=== PATIENT | male | born 1965 | race Caucasian/White ===

== ENCOUNTER 2022-11-04 13:06 | Outpatient (OUT) | payer OTHER, SELFPAY ==
--- NOTE | 2022-11-04 13:28 | CT_ITS ---
The [address] [address] Patient Name: MYRA FELIPE MRN: [id number] date: 1965 Sex: M Assigned Patient Location: CT Current Patient Location: CT Accession/Order Number: [id number] Exam Date: 11/04/2022 13:30 Report Date: 11/04/2022 16:06 At the request of: DUARTE HENRY Procedure: CT lung screening low-dose EXAMINATION: CT lung screening low-dose HISTORY: History Of Tobacco Abuse Z87.891 COMPARISON: CT chest 10/12/2021, 05/18/2020 TECHNIQUE: Axial, Coronal, and Sagittal images were created without the administration of IV contrast material. Dose reduction techniques were achieved by using automated exposure control and/or adjustment of mA and/or kV according to patient size and/or use of iterative reconstruction technique. FINDINGS: LUNGS: Multiple calcified and noncalcified nodules bilaterally; largest on right is within medial right middle lobe, 8 mm; largest on the left is within posterior lateral left lower lobe, likely within the superior segment, 15 x 6 mm. Findings have remained stable. PLEURA: No mass, effusion, or pneumothorax. VASCULATURE: No abnormality. CHAPIS: Calcified lymph nodes bilaterally. MEDIASTINUM: Calcified lymph nodes. CARDIAC: Atherosclerotic coronary artery disease. AORTA: No aneurysm or dissection. CHEST WALL: No mass or axillary adenopathy BONES: No bone lesion or fracture. LIMITED ABDOMEN: No suspicious findings. Limited images of the upper abdomen. OTHER: Negative. IMPRESSION: 1. Lung-RADS 2- Benign Appearance or Behavior. Nodules with a very low likelihood of becoming a clinically active cancer due to size or lack of growth. Follow-up CT Chest in 1 year. Electronically authenticated by: LYSSA PERDOMO Date: 11/04/2022 16:06
== END 2022-11-04 13:07 ==
LOC: CT 13:09
PROVIDERS: Visit Provider Internal Medicine
DX: Z87.891 Personal history of nicotine dependence (principal); R91.8 Other nonspecific abnormal finding of lung field
CPT/HCPCS: 71271

== ENCOUNTER 2023-03-03 16:10 | Inpatient (IN) | payer OTHER, SELFPAY ==
[2023-03-03] VITALS (13 sets, daily range): BP systolic 117–144; BP diastolic 73–84; PULSE 110–117; RESP 7–32; TEMP 36.8–37.3; O2SAT 62–99; BMI 29.9; BMI 28.4
--- NOTE | 2023-03-03 16:30 | PC.NURSE ---
pt assisted out of car by wheelchair complaining of left sided weakness and pain. stated he was seen at [facility] yesterday but couldn't recall for what surgery he had done. 20g placed in L ac. BS 272
--- NOTE | 2023-03-03 16:31 | CT_ITS ---
The [address] [address] Patient Name: MYRA FELIPE MRN: [id number] date: 1965 Sex: M Assigned Patient Location: ER Current Patient Location: ER Accession/Order Number: [id number] Exam Date: 03/03/2023 16:43 Report Date: 03/03/2023 17:24 At the request of: MAGDA MONROE Procedure: CT stroke head/brain wo con EXAM: CT stroke head/brain w/o con HISTORY: Multiple falls. TECHNIQUE: Axial CT scans through the head were obtained without IV contrast administration. Dose reduction techniques were achieved by using: automated exposure control and/or adjustment of mA and /or kV according to patient size and/or use of iterative reconstruction technique. COMPARISON: 01/12/2018. FINDINGS: Mild periventricular low attenuation in the cerebral hemispheres without associated mass effect. To the limit of CT, the posterior fossa appears unremarkable. No intracranial hemorrhage is present. No depressed skull fracture is present. The ventricular system and cortical sulci are prominent. No area of abnormal mass effect is shown. The visualized orbits show no gross mass. The visualized paranasal sinuses show no air-fluid levels. Mastoid air cells are clear. CT/CT stroke head/brain wo con IMPRESSION: 1. No depressed skull fracture or intracranial hemorrhage. 2. Mild old microvascular ischemic changes. Age-related cerebral volume loss. Electronically authenticated by: GREG ASHER Date: 03/03/2023 17:24
--- NOTE | 2023-03-03 16:31 | ECG_ITS ---
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
--- NOTE | 2023-03-03 16:31 | XR_ITS ---
[address] [address] Patient Name: MYRA FELIPE MRN: [id number] date: 1965 Sex: M Assigned Patient Location: ER Current Patient Location: ER Accession/Order Number: [id number] Exam Date: 03/03/2023 16:43 Report Date: 03/03/2023 17:31 At the request of: MAGDA MONROE Procedure: XR chest 1V Exam: Radiographs: XR elbow LT 2V, XR chest 1V Reason for exam: fall, head injury Comparison: Chest CT dated 10/12/2021 XR/XR chest 1V IMPRESSION: Unremarkable chest x-ray. Small olecranon spur. Minimal left elbow degenerative change. Left elbow radiographs are otherwise unremarkable. EXAM: CT scan of the cervical spine without contrast. Dose reduction technique used: Automated exposure control and/or adjustment of the mA and/or kV according to patient size and/or use of iterative reconstruction technique. REASON FOR EXAM: fall, head injury COMPARISON: None FINDINGS: No fractures, dislocations or acute malalignment of the cervical spine. Cervical spine degenerative changes with multilevel bilateral mild and moderate neural foraminal stenoses. 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 4 mm solid left apical pulmonary nodule. Remainder unremarkable. IMPRESSION: No acute cervical spine abnormalities. Electronically authenticated by: MAX HAMILTON Date: 03/03/2023 17:31
[2023-03-03 16:40] LABS: Hematocrit 36.2 % (42.0-54.0); Hemoglobin 11.3 g/dL (14.0-18.0); Mean Corpuscular HGB Conc 31.2 g/dL (29.9-35.2); Mean Corpuscular Hemoglobin 24.6 pg (25.9-34.0); Mean Corpuscular Volume 78.7 fL (80.0-94.0); Mean Platelet Volume 11.4 fL (9.5-13.5); Platelet Count 203 10^3/uL (150-450); Red Cell Distribution Width 17.6 % (11.0-15.0); White Blood Count 21.1 10^3/uL (4.0-11.0)
[2023-03-03] MEDS: 0.9 % SODIUM CHLORIDE 1,000 ML 999 ML IV (16:42)
--- NOTE | 2023-03-03 16:42 | ED_ITS ---
HPI - Neuro Symptoms/Deficit General Chief Complaint: Neuro Symptoms/Deficit Stated Complaint: CVA SYMPTOMS/STROKE Time Seen by Provider: 03/03/23 16:19 Mode of arrival: walk-in Limitations: no limitations History of Present Illness HPI Narrative: Patient brought in by family for evaluation stating that the patient's speech is off and that he cannot move his left arm. The gave the history although the patient offered additional information. The told me the patient has dementia and sometimes gets confused and forgets things. She told me that the patient fell 2 days ago at home and hit the back of his head. He apparently did not lose consciousness. The patient stated that he only had pain at the back of the head and did not have any injuries other than the right elbow. the told me that when she left for work yes terday morning, the patient was able to ambulate normally. When she returned yesterday afternoon around 5 PM she said the patient was sitting in a chair in the living room and appeared drowsy. She said she was able to talk with him and interactive them but his answers are short and his speech at that time seemed slightly slurred, she told me. The patient refused to get up out of the chair. She said that she had to bring him a bucket so that he could urinate while in the chair because he did not feel that he could stand up and walk. Then she spent the night on the couch to make sure that he was okay . she told me that when she left for work this morning the patient was still sleeping in the chair. She returned this afternoon he had not moved and was still unable to get up on his own and therefore she called some nursing friends who came to the house and assist getting him up and walking to the car. He was able to use a cane for support, using his right hand but refuses to move his left hand. She said that his speech remained slightly slurred. In our emergency department, the patient tells me that is painful to try and move the left leg but cannot localize area of pain. He is able to move it as well as the right leg. He is also able to move the left upper extremity but it is not with anticipated strength or well coordinated. He moves the right upper and right lower extremities without difficulty The patient is confused - telling us that he was recently treated at [facility], which the family said is not true. No prior history of CVA. He had AMI x 2 with two cardiac caths and 4 stents - all performed by Dr Vázquez. His PCP is Dr Chris Camacho. Related Data Home Medications Medication Instructions Recorded Confirmed amitriptyline 25 mg tablet 25 mg PO DAILY 03/03/23 03/03/23 aspirin 81 mg tablet,delayed 81 mg PO DAILY 03/03/23 03/03/23 release atorvastatin 80 mg tablet 80 mg PO DAILY 03/03/23 03/03/23 clopidogrel 75 mg tablet 75 mg PO DAILY 03/03/23 03/03/23 dulaglutide 0.75 mg/0.5 mL 0.75 mg subcut DAILY 03/03/23 03/03/23 subcutaneous pen injector (Trulicity) empagliflozin 10 mg tablet 10 mg PO DAILY 03/03/23 03/03/23 (Jardiance) glimepiride 2 mg tablet 2 mg PO BID 03/03/23 03/03/23 metformin 1,000 mg tablet 1,000 mg PO DAILY 03/03/23 03/03/23 metoprolol tartrate 100 mg tablet 100 mg PO Q12H 03/03/23 03/03/23 nitroglycerin 0.4 mg sublingual 0.4 mg sublingual Q5M PRN chest 03/03/23 03/03/23 tablet pain omeprazole 40 mg capsule,delayed 40 mg PO DAILY 03/03/23 03/03/23 release pregabalin 200 mg capsule 200 mg PO Q8H 03/03/23 03/03/23 ropinirole 1 mg tablet 1 mg PO DAILY 03/03/23 03/03/23 sildenafil 100 mg tablet 100 mg PO Q8H PRN sexual activity 03/03/23 03/03/23 sitagliptin phosphate 100 mg 100 mg PO DAILY 03/03/23 03/03/23 tablet (Januvia) tamsulosin 0.4 mg capsule (Flomax) 0.4 mg PO DAILY 03/03/23 03/03/23 tiotropium bromide 2.5 2 puff inhalation Q24H PRN sob 03/03/23 03/03/23 mcg/actuation mist for inhalation (Spiriva Respimat) tizanidine 4 mg tablet 4 mg PO Q12H PRN muscle spasticity 03/03/23 03/03/23 valsartan 160 1 tab PO DAILY 03/03/23 03/03/23 mg-hydrochlorothiazide 12.5 mg tablet Allergies Allergy/AdvReac Type Severity Reaction Status Date / Time Penicillins Allergy Severe Swelling Verified 03/03/23 22:47 of Lip/Tongue/Throat pcn AdvReac Intermediate Uncoded 03/03/23 16:13 PFSH [facility] Medical History (Updated 03/03/23 @ 18:45 by Darling Sharma RN) Carpal tunnel syndrome, bilateral ?G56.03 - Carpal tunnel syndrome, bilateral upper limbs (ICD-10) Chronic kidney disease ?N18.9 - Chronic kidney disease, unspecified (ICD-10) COPD (chronic obstructive pulmonary disease) ?J44.9 - Chronic obstructive pulmonary disease, unspecified (ICD-10) Diabetes ?E11.9 - Type 2 diabetes mellitus without complications (ICD-10) Femoral artery stenosis ?I70.209 - Unspecified atherosclerosis of [place] arteries of extremities, unspecified extremity (ICD-10) Glaucoma ?H40.9 - Unspecified glaucoma (ICD-10) Gout ?M10.9 - Gout, unspecified (ICD-10) Hyperlipidemia ?E78.5 - Hyperlipidemia, unspecified (ICD-10) Hypertension ?I10 - Essential (primary) hypertension (ICD-10) Neuropathy ?G62.9 - Polyneuropathy, unspecified (ICD-10) Polyp of prostate with urinary obstruction ?N40.1 - Benign prostatic hyperplasia with lower urinary tract symptoms (ICD- 10) ?N13.8 - Other obstructive and reflux uropathy (ICD-10) Surgical History (Updated 03/03/23 @ 18:45 by Darling Sharma RN) History of appendectomy ?Z90.49 - Acquired absence of other specified parts of digestive tract (ICD- 10) History of heart artery stent ?Z95.5 - Presence of coronary angioplasty implant and graft (ICD-10) Family History (Updated 03/03/23 @ 18:46 by Darling Sharma RN) Mother Family history of CHF (congestive heart failure) Family history of diabetes mellitus Family history of hypertension Grandfather Family history of CHF (congestive heart failure) Family history of diabetes mellitus Family history of hypertension Family history of myocardial infarction Grandmother Family history of hypertension Social History (Updated 03/03/23 @ 18:47 by Darling Sharma RN) Within the past year, how often did you have a drink containing alcohol: never Score interpretation: A score less than 4 is consistent with normal alcohol co nsumption. Smoking status: Current every day smoker Non-prescribed substance use: denies use Gender Identity: male Exam Narrative Exam Narrative: Nurses note and vital signs reviewed and patient is not hypoxic. Patient placed in cervical collar. afebrile General: The patient appears well and in no apparent distress. Patient is resting comfortably on cart. GCS = 15. Skin: Warm, dry, no pallor noted. Head: Normocephalic, atraumatic Neck: Supple, trachea mid-line. Cervical spine stabilization and no cervical spinal tenderness. Cervical collar secured back onto the patient. Eyes: PERRLA, EOMI ENT: TMs clear, no hemotympanum detected, no blood in posterior oropharynx Cardiovascular: Regular Rate and Rhythm Respiratory: Patient is in no distress, no accessory muscle use, lungs are ivan ar to auscultation, no wheezing, rales or rhonchi Chest Wall: no tenderness, no flail chest, contusion, abrasion, or signs of trauma. Back: No thoracic or lumbar tenderness to palpation. Negative straight leg raise bilaterally. Musculoskeletal: right elbow tenderness throughout without swelling or ecchymosis. no additional sign of long bone fracture, no tenderness, no swelling. Pulses at femoral, DP, PT, and popliteal were 2+ bilaterally. Moves all four extremities but left UE has less than expected strength. GI: Normal bowel sounds, no tenderness to palpation, no masses appreciated. No rebound, guarding, or rigidity noted. 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 Psychiatric: Cooperative Constitutional Vital Signs, click to edit/add: Last Vital Signs Temp 98.3 F 03/04/23 05:33 Pulse 87 03/04/23 05:33 Resp 20 03/04/23 05:33 BP 100/63 03/04/23 05:33 Pulse Ox 92 L 03/04/23 05:33 O2 Del Method Room Air 03/04/23 05:33 Course Vital Signs Vital signs: Vital Signs Temperature 98.2 F 03/03/23 16:13 Pulse Rate 117 H 03/03/23 16:13 Respiratory Rate 18 03/03/23 16:13 Blood Pressure 144/77 H 03/03/23 16:13 Pulse Oximetry 98 03/03/23 16:13 Temperature 98.3 F 03/04/23 05:33 Pulse Rate 87 03/04/23 05:33 Respiratory Rate 20 03/04/23 05:33 Blood Pressure 100/63 03/04/23 05:33 Pulse Oximetry 92 L 03/04/23 05:33 Oxygen Delivery Method Room Air 03/04/23 05:33 MDM - Neuro Symptoms/Deficit MDM Narrative Medical decision making narrative: the patient was brought in by family for evaluation of slurred speech and left upper extremity weakness following a fall two days ago. His last known well irena serrano was approximately thirty-three hours ago, when the patient's left for work yesterday morning. cervical collar placed shortly after arrival. Patient was placed on satellite project site monitor and EKG obtained. Blood drawn and sent for evaluation. he was sent for CT scanning of the brain per stroke protocol. X-rays of the right elbow were also obtained. I also asked the urine be obtained and sent for testing. The patient got to rad suite and told the obstetrics tech that it was his LEFTA elbow that bothered him, despite telling me and the ED nurse RIGHT elbow and complaining of pain on palpation of the right and not the left elbow. The grades 1 through 6 teacher obtained xrays of the left elbow instead. On return he no longer complains of pain in any elbow and no tenderness on palpation of either elbow. he refuses right elbow xrays now. Radiologist did not identify any worrisome pathology on CT head or cervical spine, CXR and elbow XR. Blood testing revealed elevated WBC at 21k and elevated lactate >4. UA revealed acute UTI. Blood cultures pending. Patient ordered to receive IV Levaquin. Call placed to the telehospitalist to discuss admission for Sepsis secondary to UTI with associated weakness and altered mentation. Dr Joan Zhang and I discussed the case and he accepted the patient for admission on behalf of Dr Bello, [facility], [facility]. He asked that we get a post-void residual and that information was relayed by ED nurse to the team on the floor. Lab Data Attestation: I reviewed the patient's lab results. Labs: Lab Results 03/03/23 03/03/23 Range/Units 16:20 17:24 WBC 21.1 H (4.0-11.0) 10^3/uL RBC 4.60 L (4.70-6.10) 10^6/uL Hgb 11.3 L (14.0-18.0) g/dL Hct 36.2 L (42.0-54.0) % MCV 78.7 L (80.0-94.0) fL MCH 24.6 L (25.9-34.0) pg MCHC 31.2 (29.9-35.2) g/dL RDW 17.6 H (11.0-15.0) % Plt Count 203 (150-450) 10^3/uL MPV 11.4 (9.5-13.5) fL Seg Neuts % (Manual) 87.0 Band Neutrophils % 1.0 (0-5) % Lymphocytes % (Manual) 7.0 L (20.5-60.0) % Monocytes % (Manual) 5.0 (1.7-12.0) % Eosinophils % (Manual) 0.0 L (0.9-7.0) % Basophils % (Manual) 0.0 L (0.2-2.0) % Neutrophils # (Manual) 18.35 H (1.4-6.5) 10^3/uL Band Neutrophils # 0.2 (0.0-0.3) 10^3/uL Lymphocytes # (Manual) 1.47 (1.20-3.80) 10^3/uL Monocytes # (Manual) 1.05 H (0.30-0.80) 10^3/uL Eosinophils # (Manual) 0.00 (0.00-0.70) 10^3/uL Basophils # (Manual) 0.00 (0.00-0.10) 10^3/uL Anisocytosis 1+ Microcytosis 1+ Sodium 132 L (136-145) mmol/L Potassium 4.2 (3.5-5.1) mmol/L Chloride 95 L (98-107) mmol/L Carbon Dioxide 25.1 (21.0-32.0) mmol/L Anion Gap 16.1 BUN 29.0 H (7.0-18.0) mg/dL Creatinine 2.91 H (0.70-1.30) mg/dL Est GFR ( Amer) 27 L (>=60) Est GFR (Non-Af Amer) 22 L (>=60) BUN/Creatinine Ratio 10.0 Glucose 271 H (74-106) mg/dL Lactate 4.0 H* (0.4-2.0) mmol/L Calcium 8.5 (8.5-10.1) mg/dL Total Bilirubin 0.6 (0.2-1.0) mg/dL AST 43 H (15-37) U/L ALT 11 L (16-63) U/L Alkaline Phosphatase 111 (46-116) U/L Troponin I High Sens 10.0 (4.0-76.1) pg/mL NT-Pro-B Natriuret Pep 254.0 (<=900.0) pg/mL Total Protein 7.4 (6.4-8.2) g/dL Albumin 3.1 L (3.4-5.0) g/dL Globulin 4.3 g/dL Albumin/Globulin Ratio 0.7 Urine Color Lt. yellow (YELLOW) Urine Clarity Clear (CLEAR) Urine pH 6.0 (5.0-9.0) Ur Specific [place] 1.010 (1.005-1.025) Urine Protein Trace (NEG/TRACE) mg/dL Urine Glucose (UA) >=1000 A (NEGATIVE) mg/dL Urine Ketones Negative (NEGATIVE) mg/dL Urine Occult Blood Moderate A (NEGATIVE) Urine Nitrite Positive A (NEGATIVE) Urine Bilirubin Negative (NEGATIVE) Urine Urobilinogen 0.2 (0.2-1.0) EU/dL Ur Leukocyte Esterase Small A (NEGATIVE) Urine RBC 10-20 A (0-2) #/HPF Urine WBC 20-50 A (NONE SEEN) #/HPF Ur Squamous Epith Cells None seen (NONE/RARE) #/LPF Urine Crystals None seen (None Seen) #/HPF Urine Bacteria Moderate A (NONE SEEN) #/HPF Urine Casts None seen (NONE SEEN) #/LPF Urine Mucus None seen (NONE SEEN) Urine Yeast Seen A (NONE SEEN) Ur Culture Indicated? Yes Urine Opiates Screen Negative (NEGATIVE) Ur Buprenorphine Scrn Negative (NEGATIVE) Ur Oxycodone Screen Negative (NEGATIVE) Urine Methadone Screen Negative (NEGATIVE) Ur Propoxyphene Screen Negative (NEGATIVE) Ur Barbiturates Screen Negative (NEGATIVE) U Tricyclic Antidepress Positive A (NEGATIVE) Ur Phencyclidine Scrn Negative (NEGATIVE) Ur Amphetamines Screen Negative (NEGATIVE) U Methamphetamines Scrn Negative (NEGATIVE) U Benzodiazepines Scrn Negative (NEGATIVE) Urine Cocaine Screen Negative (NEGATIVE) U Cannabinoids Screen Negative (NEGATIVE) Ethanol Quant <3 mg/dL Acetone, Qual Negative (NEGATIVE) Imaging Data CT scan - head: Radiologist's impression: Patient Name: MYRA FELIPE MRN: [facility]:[id number] date: 1965 Sex: M Assigned Patient Location: ER Current Patient Location: ER Accession/Order Number: [id number] Exam Date: 03/03/2023 16:43 Report Date: 03/03/2023 17:24 At the request of: MAGDA MONROE Procedure: CT stroke head/brain wo con EXAM: CT stroke head/brain w/o con HISTORY: Multiple falls. TECHNIQUE: Axial CT scans through the head were obtained without IV contrast administration. Dose reduction techniques were achieved by using: automated exposure control and/or adjustment of mA and /or kV according to patient size and/or use of iterative reconstruction technique. COMPARISON: 01/12/2018. FINDINGS: Mild periventricular low attenuation in the cerebral hemispheres without associated mass effect. To the limit of CT, the posterior fossa appears unremarkable. No intracranial hemorrhage is present. No depressed skull fracture is present. The ventricular system and cortical sulci are prominent. No area of abnormal mass effect is shown. The visualized orbits show no gross mass. The visualized paranasal sinuses show no air-fluid levels. Mastoid air cells are clear. IMPRESSION: 1. No depressed skull fracture or intracranial hemorrhage. 2. Mild old microvascular ischemic changes. Age-related cerebral volume loss. Electronically authenticated by: GREG ASHER Date: 03/03/2023 17:24 ct cervical spine: Radiologist's impression: Patient Name: MYRA FELIPE MRN: [facility]:[id number] date: 1965 Sex: M Assigned Patient Location: ER Current Patient Location: ER Accession/Order Number: [id number] Exam Date: 03/03/2023 16:43 Report Date: 03/03/2023 17:31 At the request of: MAGDA MONROE Procedure: CT cervical spine wo con Exam: Radiographs: XR elbow LT 2V, XR chest 1V Reason for exam: fall, head injury Comparison: Chest CT dated 10/12/2021 IMPRESSION: Unremarkable chest x-ray. Small olecranon spur. Minimal left elbow degenerative change. Left elbow radiographs are otherwise unremarkable. EXAM: CT scan of the cervical spine without contrast. Dose reduction technique used: Automated exposure control and/or adjustment of the mA and/or kV according to patient size and/or use of iterative reconstruction technique. REASON FOR EXAM: fall, head injury COMPARISON: None FINDINGS: No fractures, dislocations or acute malalignment of the cervical spine. Cervical spine degenerative changes with multilevel bilateral mild and moderate neural foraminal stenoses. 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 4 mm solid left apical pulmonary nodule. Remainder unremarkable. IMPRESSION: No acute cervical spine abnormalities. Electronically authenticated by: MAX HAMILTON Date: 03/03/2023 17:31 Chest x-ray: Radiologist's impression: Patient Name: MYRA FELIPE MRN: [facility]:[id number] date: 1965 Sex: M Assigned Patient Location: ER Current Patient Location: ER Accession/Order Number: [id number] Exam Date: 03/03/2023 16:43 Report Date: 03/03/2023 17:31 At the request of: MAGDA MONROE Procedure: XR chest 1V Exam: Radiographs: XR elbow LT 2V, XR chest 1V Reason for exam: fall, head injury Comparison: Chest CT dated 10/12/2021 IMPRESSION: Unremarkable chest x-ray. Small olecranon spur. Minimal left elbow degenerative change. Left elbow radiographs are otherwise unremarkable. EXAM: CT scan of the cervical spine without contrast. Dose reduction technique used: Automated exposure control and/or adjustment of the mA and/or kV according to patient size and/or use of iterative reconstruction technique. REASON FOR EXAM: fall, head injury COMPARISON: None FINDINGS: No fractures, dislocations or acute malalignment of the cervical spine. Cervical spine degenerative changes with multilevel bilateral mild and moderate neural foraminal stenoses. 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 4 mm solid left apical pulmonary nodule. Remainder unremarkable. IMPRESSION: No acute cervical spine abnormalities. Electronically authenticated by: MAX HAMILTON Date: 03/03/2023 17:31 xr elbow: Radiologist's impression: Patient Name: MYRA FELIPE MRN: [facility]:[id number] date: 1965 Sex: M Assigned Patient Location: ER Current Patient Location: ER Accession/Order Number: [id number] Exam Date: 03/03/2023 16:43 Report Date: 03/03/2023 17:31 At the request of: MAGDA MONROE Procedure: XR elbow LT 2V Exam: Radiographs: XR elbow LT 2V, XR chest 1V Reason for exam: fall, head injury Comparison: Chest CT dated 10/12/2021 IMPRESSION: Unremarkable chest x-ray. Small olecranon spur. Minimal left elbow degenerative change. Left elbow radiographs are otherwise unremarkable. EXAM: CT scan of the cervical spine without contrast. Dose reduction technique used: Automated exposure control and/or adjustment of the mA and/or kV according to patient size and/or use of iterative reconstruction technique. REASON FOR EXAM: fall, head injury COMPARISON: None FINDINGS: No fractures, dislocations or acute malalignment of the cervical spine. Cervical spine degenerative changes with multilevel bilateral mild and moderate neural foraminal stenoses. 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 4 mm solid left apical pulmonary nodule. Remainder unremarkable. IMPRESSION: No acute cervical spine abnormalities. Electronically authenticated by: MAX HAMILTON Date: 03/03/2023 17:31 ECG Data Interpretation: EKG interpretation: Emergency Department physician interpretation. Sinus rhythm at 114bpm. Incomplete RBBB. Discharge Plan Discharge Chief Complaint: Neuro Symptoms/Deficit Clinical Impression: Sepsis, Weakness, Acute confusion, Acute UTI Patient Disposition: Admitted As Inpatient Time of Disposition Decision: 18:03 Discharge Date/Time: 03/03/23 18:47
--- NOTE | 2023-03-03 16:45 | CT_ITS ---
[address] [address] Patient Name: MYRA FELIPE MRN: [id number] date: 1965 Sex: M Assigned Patient Location: ER Current Patient Location: ER Accession/Order Number: [id number] Exam Date: 03/03/2023 16:43 Report Date: 03/03/2023 17:31 At the request of: MAGDA MONROE Procedure: CT cervical spine wo con Exam: Radiographs: XR elbow LT 2V, XR chest 1V Reason for exam: fall, head injury Comparison: Chest CT dated 10/12/2021 CT/CT cervical spine wo con IMPRESSION: Unremarkable chest x-ray. Small olecranon spur. Minimal left elbow degenerative change. Left elbow radiographs are otherwise unremarkable. EXAM: CT scan of the cervical spine without contrast. Dose reduction technique used: Automated exposure control and/or adjustment of the mA and/or kV according to patient size and/or use of iterative reconstruction technique. REASON FOR EXAM: fall, head injury COMPARISON: None FINDINGS: No fractures, dislocations or acute malalignment of the cervical spine. Cervical spine degenerative changes with multilevel bilateral mild and moderate neural foraminal stenoses. 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 4 mm solid left apical pulmonary nodule. Remainder unremarkable. IMPRESSION: No acute cervical spine abnormalities. Electronically authenticated by: MAX HAMILTON Date: 03/03/2023 17:31
[2023-03-03 16:53] LABS: Alanine Aminotransferase 11 U/L (16-63); Albumin Globulin Ratio 0.7; Albumin Level 3.1 g/dL (3.4-5.0); Alkaline Phosphatase 111 U/L (46-116); Anion Gap 16.1; Aspartate Amino Transferase 43 U/L (15-37); Bilirubin Total 0.6 mg/dL (0.2-1.0); Calcium 8.5 mg/dL (8.5-10.1); Carbon Dioxide 25.1 mmol/L (21.0-32.0); Chloride 95 mmol/L (98-107); Estimated GFR (African America 27 (>=60); Estimated GFR (Non-African Ame 22 (>=60); Globulin 4.3 g/dL; Glucose 271 mg/dL (74-106); Potassium 4.2 mmol/L (3.5-5.1); Sodium 132 mmol/L (136-145); Total Protein 7.4 g/dL (6.4-8.2)
[2023-03-03 17:00] LABS: Ethanol <3 mg/dL
[2023-03-03 17:08] LABS: Anisocytosis 1+; Band Neutrophils Absolute 0.2 10^3/uL (0.0-0.3); Lymphocytes Absolute Manual 1.47 10^3/uL (1.20-3.80); Microcytosis 1+; Monocytes Absolute Manual 1.05 10^3/uL (0.30-0.80); Segmented Neut Absolute Manual 18.35 10^3/uL (1.4-6.5)
[2023-03-03 17:33] LABS: Acetone NEGATIVE (NEGATIVE)
[2023-03-03] MEDS: LEVOFLOXACIN IN DEXTROSE 5 % 750 MG/150 ML PIGGYBACK IV (17:39)
[2023-03-03 17:47] LABS: Bilirubin Urine NEGATIVE (NEGATIVE); Blood Urine MODERATE (NEGATIVE); Clarity Urine CLEAR (CLEAR); Color Urine LT. YELLOW (YELLOW); Glucose Urine UA >=1000 mg/dL (NEGATIVE); Ketones Urine NEGATIVE (NEGATIVE); Leukocyte Esterase Urine SMALL (NEGATIVE); Nitrite Urine POSITIVE (NEGATIVE); Protein Urine TRACE mg/dL (NEG/TRACE); Urobilinogen Urine 0.2 EU/dL (0.2-1.0)
[2023-03-03 17:50] LABS: Urine Microscopic Indicated YES
[2023-03-03 17:56] LABS: Cannabinoid Screen Urine NEGATIVE (NEGATIVE); Cocaine Screen Urine NEGATIVE (NEGATIVE); Methamphetamines Screen Urine NEGATIVE (NEGATIVE); Phencyclidine Screen Urine NEGATIVE (NEGATIVE)
[2023-03-03 17:57] LABS: Amphetamine Screen Urine NEGATIVE (NEGATIVE); Barbiturates Screen Urine NEGATIVE (NEGATIVE); Benzodiazepines Screen Urine NEGATIVE (NEGATIVE); Buprenorphine Screen Urine NEGATIVE (NEGATIVE); Methadone Screen Urine NEGATIVE (NEGATIVE); Opiate Screen Urine NEGATIVE (NEGATIVE); Oxycodone Screen Urine NEGATIVE (NEGATIVE); Tricyclic Antidepressant Urine POSITIVE (NEGATIVE)
[2023-03-03 18:00] LABS: Bacteria Urine MODERATE #/HPF (NONE SEEN); Mucus Urine NONE SEEN (NONE SEEN)
[2023-03-03 18:02] LABS: Cast Seen? NONE SEEN #/LPF (NONE SEEN); Crystals Seen? None Seen #/HPF (None Seen); Squamous Epithelial Cell Urine NONE SEEN #/LPF (NONE/RARE); WBC Urine 20-50 #/HPF (NONE SEEN)
[2023-03-03 18:03] LABS: Urine Culture Indicated YES
[2023-03-03 20:03] LABS: Lactate/Lactic Acid 2.1 mmol/L (0.4-2.0)
--- NOTE | 2023-03-03 20:29 | P.PN_ITS ---
Progress Note: Subjective Subjective Interval history: CC: Falls HPI: 57 year old male with history of poorly controlled DM type 2 with severe neuropathy, CAD w/stents, PVD with 2 Left leg stents, HTN, HDL, and BPH who presents with complaints of generalized weakness, 3 falls at home falling backwards hitting his head, no LOC, urinary frequency. patient states he has a walker at home, he gets dizzy light headed and vertigo when he stands up and takes few steps forward leading to his falling down, he says his balance is unstable, and for the past two days he feels his left side is more number and weaker than baseline. denies any palpitations, previous strokes, facial droop, aphasia, he takes Aspirin/Plavix but denies any bleeding or bruising from the falls, though he does have left arm pain from the fall today. he also states not taking his medications today, denies any hypoglycemic episodes. denies fevers, chest pain, abdominal pain, reports sensation of incomplete bladder emptying, has chronic low back pain. ER course: Afebrile, Sinus tachycardia, BP acceptable. labs with leukocytosis and bandemia, elevated creatinine, lactate 4.0. IV fluid bolus, Levaquin given. Blood cultures and urine cultures obtained. CT head, C-spine arm xray without acute abnormalities. ROS: negative except for HPI PMHx: DM II, HTN, HDL, CAD, PVD, Neuropathy PSHx: Stents to heart and left leg SHx: lives with , smokes 1PPD, occasional alcohol, no drug use FHx: diabetes Allergies: patient denies, PCN listed in chart Home Medications: reviewed and reconciled in chart PE: General: lying in bed, in mild distress, AO x 3 HEENT: NC,AT, EOMI, trachea midline CVS: RRR, no edema Lungs: normal respiratory effort, GI: soft, Non tender, no visible masses Neuro: decreased strength and sensation to light touch bilateral legs, Left >> right, decrease strength left arm Skin: no brusing Exam Constitutional Vital Signs, click to edit/add: Last Vital Signs Temp 99.2 F 03/03/23 18:47 Pulse 110 H 03/03/23 18:47 Resp 18 03/03/23 18:47 BP 130/84 03/03/23 18:47 Pulse Ox 96 03/03/23 18:47 O2 Del Method Room Air 03/03/23 18:47 Progress Note: Objective Labs Labs: Short CBC 03/03/23 Range/Units 16:20 WBC 21.1 H (4.0-11.0) 10^3/uL Hgb 11.3 L (14.0-18.0) g/dL Hct 36.2 L (42.0-54.0) % Plt Count 203 (150-450) 10^3/uL BMP 03/03/23 16:20 Sodium 132 L Potassium 4.2 Chloride 95 L Carbon Dioxide 25.1 BUN 29.0 H Creatinine 2.91 H Glucose 271 H Calcium 8.5 Liver Function 03/03/23 Range/Units 16:20 Total Bilirubin 0.6 (0.2-1.0) mg/dL AST 43 H (15-37) U/L ALT 11 L (16-63) U/L Alkaline Phosphatase 111 (46-116) U/L Albumin 3.1 L (3.4-5.0) g/dL Urine 03/03/23 Range/Units 17:24 Urine Color Lt. yellow (YELLOW) Urine Clarity Clear (CLEAR) Urine pH 6.0 (5.0-9.0) Ur Specific [place] 1.010 (1.005-1.025) Urine Protein Trace (NEG/TRACE) mg/dL Urine Glucose (UA) >=1000 A (NEGATIVE) mg/dL Progress Note: A&P Assessment and Plan (1) Weakness: (2) Acute confusion: (3) Sepsis: (4) Acute UTI: (5) Neuropathy: (6) Femoral artery stenosis: (7) Diabetes: Plan Sepsis secondary to UTI - Lactate 4.0 - check blood and urine cultures - hold parameters on home BP meds - IV Zosyn, IV fluids, maintain normotension, monitor lactate and urine output -tylenol for fevers Generalized weakness, Left more than right Frequent falls closed head injury left arm pain diabetic neuropathy - Check Brain MRI, carotid duplex - Fall precautions - check B12/folate -PT/OT evaluation Acute kidney injury with likely underlying CKD (unknwon baseline gfr) - Bladder scan with history of retention, and consider burt catheter - IV fluids - hold home ARB/HCTZ - renal US -avoid NSAID's CAD w/stents PVD with left leg stents - resume home Aspirin, Plavix, Statin - consider MICHELLE's DM type II, poorly controlled Diabetic polyneuropathy - check A1c level - SSI coverage - hold oral agents incidental L apical lung nodule Tobacco smoker - Outpatient follow up -nicotine patch -smoking cessation education DVT ppx-Lovenox Full Code Medication reconciliation form completed communications: discussed with ER physician, bedside nurse, patient updated of plan of care, all questions answered to their satisfaction disposition: may need SNF placement, social media job titles consult As the provider of this telehealth evaluation, requested by the patient's evaluating physician, i attest that i introduced myself to the patient, provided my credentials, and determined that telemedicine, via a realtime 2 way interactive audio and video platform is an appropriate and effective means of providing this service. I reviewed the patient chart and had a discussion with the member of the patient treatment team. the patient and I mutually agreed with continuation of this evaluation via telemedicine. the patient consented for the telemedicine evaluation. The nurse was present during the entire time of the encounter and was able to move the stethescope in appropriate directions, encounter lasted about 30 minutes evaluated at 2110 Telemedicine Attestation Telemedicine Attestation I conducted this encounter from [[place]] via secure live, [id number] video conference with the patient, located at [facility] with [nursing staff]. Prior to the interview, the risks and benefits of telemedicine were discussed with the patient and verbal consent was obtained.
[2023-03-03] MEDS: NICOTINE 14 MG PATCH TD (21:42)
[2023-03-03] MEDS: LACTATED RINGER'S SOLUTION 1,000 ML 125 ML IV (21:43)
[2023-03-03] MEDS: METOPROLOL TARTRATE 100 MG TABLET PO (21:43)
[2023-03-03] MEDS: ENOXAPARIN SODIUM 30 MG/0.3 ML SYRINGE SUBQ (21:43)
[2023-03-03 21:54] LABS: Glucometer 82 mg/dL (74-106)
--- NOTE | 2023-03-03 23:55 | PC.NURSE ---
Garza catheter placed per orders. 850 dark urine out. Patient tolerated well after using 20mg Urojet
[2023-03-04] VITALS (14 sets, daily range): BP systolic 100–137; BP diastolic 63–84; PULSE 76–98; RESP 18–20; TEMP 36.7–36.8; O2SAT 92–97
[2023-03-04] MEDS: LIDOCAINE 2% JELLY 20 ML UR (00:02)
[2023-03-04 05:02] LABS: Estimated Average Glucose 180 mg/dL; Glycohemoglobin A1C 7.9 % (4.5-6.2)
[2023-03-04 05:09] LABS: Alanine Aminotransferase 17 U/L (16-63); Albumin Globulin Ratio 0.6; Albumin Level 2.4 g/dL (3.4-5.0); Alkaline Phosphatase 87 U/L (46-116); Anion Gap 13.2; Aspartate Amino Transferase 33 U/L (15-37); BUN Creatinine Ratio 11.7; Bilirubin Total 0.6 mg/dL (0.2-1.0); Calcium 7.8 mg/dL (8.5-10.1); Carbon Dioxide 25.4 mmol/L (21.0-32.0); Chloride 100 mmol/L (98-107); Estimated GFR (African America 37 (>=60); Estimated GFR (Non-African Ame 31 (>=60); Globulin 3.9 g/dL; Glucose 56 mg/dL (74-106); Potassium 3.6 mmol/L (3.5-5.1); Sodium 135 mmol/L (136-145); Total Protein 6.3 g/dL (6.4-8.2)
[2023-03-04] MEDS: LACTATED RINGER'S SOLUTION 1,000 ML 125 ML IV ×3 (05:30→22:49)
[2023-03-04 06:08] LABS: Glucometer 104 mg/dL (74-106)
--- NOTE | 2023-03-04 06:08 | PC.NURSE ---
Lab draw glucose results were noted at 56. This RN gave 2 packs of li crackers and a chocolate pudding. POC glucose checked 15 minutes later and fsbs was 104.
--- NOTE | 2023-03-04 07:00 | US_ITS ---
[address] [address] Patient Name: MYRA FELIPE MRN: [id number] date: 1965 Sex: M Assigned Patient Location: MS Current Patient Location: MS Accession/Order Number: [id number] Exam Date: 03/04/2023 07:13 Report Date: 03/06/2023 07:14 At the request of: SERGIO PELAEZ Procedure: US carotid duplex BI EXAMINATION: US carotid duplex BI HISTORY: dizzine COMPARISON: No relevant comparison available. TECHNIQUE: Duplex Doppler ultrasound analysis of carotid and vertebral arteries. . Bilateral carotid arterial duplex examination was performed using B-mode, color flow and spectral analysis. Carotid stenosis is reported according to validated velocity parameters, similar to NASCET criteria. FINDINGS: RIGHT CAROTID ARTERY Mild atherosclerotic plaque Subclavian: PSV: 176.3 cm/s cm/s EDV: 0.0 cm/s cm/s CCA: Prox: PSV: 122.1 cm/s cm/s EDV: 22.0 cm/s cm/s Mid: PSV: 119.8 cm/s cm/s EDV: 18.9 cm/s cm/s Distal: PSV: 88.8 cm/s cm/s EDV: 20.2 cm/s cm/s BULB: PSV: 68.2 cm/s cm/s EDV: 18.1 cm/s cm/s ICA: Prox: PSV: 75.8 cm/s cm/s EDV: 21.5 cm/s cm/s Mid: PSV: 70.7 cm/s cm/s EDV: 28.0 cm/s cm/s Distal: PSV: 81.0 cm/s cm/s EDV: 31.8 cm/s cm/s ECA: PSV: 104.3 cm/s cm/s EDV: 15.0 cm/s cm/s VERTEBRAL: PSV: 42.4 cm/s cm/s EDV: 7.5 cm/s cm/s, antegrade ICA/CCA ratio: PSV: 0.7 EDV: 1.7 LEFT CAROTID ARTERY Mild atherosclerotic plaque Subclavian: PSV: 141.1 cm/s cm/s EDV: 0.0 cm/s CCA: Prox: PSV: 103.0 cm/s cm/s EDV: 26.7 cm/s Mid: PSV: 95.2 cm/s cm/s EDV: 21.5 cm/s Distal: PSV: 95.2 cm/s cm/s EDV: 20.2 cm/s BULB: PSV: 52.0 cm/s cm/s EDV: 10.6 cm/s ICA: Prox: PSV: 86.6 cm/s cm/s EDV: 25.8 cm/s Mid: PSV: 91.7 cm/s cm/s EDV: 30.9 cm/s Distal: PSV: 74.9 cm/s cm/s EDV: 23.2 cm/s ECA: PSV: 90.1 cm/s cm/s EDV: 13.7 cm/s VERTEBRAL: PSV: 68.1 cm/s cm/s EDV: 29.2 cm/s , antegrade ICA/CCA ratio: PSV: 1.0 EDV: 1.5 US/US carotid duplex BI IMPRESSION: 0-49% flow stenosis bilateral internal carotid arteries Spectral Doppler US Thresholds (Reference: Jason EG, et al. Radiology 2000; 214:247-252) Stenosis (%) PSV (cm/sec) VICA/VCCA 0-49 <150 <2.5 50-69 150-225 2.5-4.0 >70 >225 >4.0 Electronically authenticated by: EVAN HODGES Date: 03/06/2023 07:14
[2023-03-04] MEDS: ATORVASTATIN CALCIUM 40 MG TABLET 80 MG PO (08:26)
[2023-03-04] MEDS: ACETAMINOPHEN 325 MG TABLET 650 MG PO (08:26)
[2023-03-04] MEDS: CLOPIDOGREL BISULFATE 75 MG TABLET PO (08:26)
[2023-03-04] MEDS: TAMSULOSIN HCL 0.4 MG CAPSULE PO ×2 (08:27→20:27)
[2023-03-04] MEDS: ASPIRIN 81 MG TABLET.DR PO (08:27)
[2023-03-04] MEDS: ROPINIROLE HCL 1 MG TABLET PO ×3 (08:27→21:56)
[2023-03-04] MEDS: METOPROLOL TARTRATE 100 MG TABLET PO (08:27)
[2023-03-04] MEDS: MORPHINE SULFATE 2 MG/ML SYRINGE IV ×3 (10:52→20:28)
[2023-03-04 11:46] LABS: Glucometer 140 mg/dL (74-106)
[2023-03-04] MEDS: LORAZEPAM 2 MG/ML 1 ML VIAL 1 MG IV (12:16)
--- NOTE | 2023-03-04 12:30 | MR_ITS ---
The [address] [address] Patient Name: MYRA FELIPE MRN: [id number] date: 1965 Sex: M Assigned Patient Location: MS Current Patient Location: MS Accession/Order Number: [id number] Exam Date: 03/04/2023 12:30 Report Date: 03/04/2023 14:26 At the request of: SERGIO PELAEZ Procedure: MR head/brain wo con EXAM: MR head/brain wo con HISTORY: left sided weakness COMPARISON: Head CT 06/27/2020, CT head 01/12/2018. TECHNIQUE: Multiplanar multisequence MR imaging of the brain was performed without intravenous contrast. FINDINGS: Calvarium/skull base: No focal marrow replacing lesion suggestive of neoplasm. Orbits: Negative ocular lens replacements. Paranasal sinuses: Imaged portions clear Brain: No restricted diffusion. Single focus of T2 FLAIR hyperintensity involving the left frontal molina radiata white matter which most commonly relates to sequela small vessel disease. This is considered within normal limits for patient's age. No mass effect, hemorrhage, or hydrocephalus. Grossly normal flow-related signal in the major intracranial arteries and dural sinuses. MR/MR head/brain wo con IMPRESSION: No acute ischemia. No acute intracranial process. Electronically authenticated by: SHE LUND Date: 03/04/2023 14:26
--- NOTE | 2023-03-04 13:03 | XR_ITS ---
The [address] [address] Patient Name: MYRA FELIPE MRN: [id number] date: 1965 Sex: M Assigned Patient Location: MS Current Patient Location: MS Accession/Order Number: [id number] Exam Date: 03/04/2023 13:47 Report Date: 03/04/2023 15:39 At the request of: SHAIKH LOIDA Procedure: XR shoulder LT min 2V EXAM: XR shoulder LT min 2V HISTORY: Pain COMPARISON: None. TECHNIQUE: 3 views of the left shoulder FINDINGS: There is no acute fracture or dislocation. There is a structure just of the left glenohumeral and acromioclavicular joints. No calcific tendinitis. The soft tissue is unremarkable. XR/XR shoulder LT min 2V IMPRESSION: No acute fracture-dislocation. Electronically authenticated by: OBDULIA RIVERA Date: 03/04/2023 15:39
--- NOTE | 2023-03-04 13:05 | PM.HP ---
H&P: HPI History of Present Illness Chief complaint: Confusion Narrative: 57 y o male brought in last night for change in mental status, slurred speech, weakness, unsteadiness and was admitted overnight. Patient has dementia at baseline, lives at home with his who reported that he fell in the shower a few days ago without LOC or head trauma. She reports that over past few days he increasingly got weak, confused and his speech became very slurred and difficult to understand. 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 His w/u in ED was c/w Sepsis sec to UTI but since there was possibility of a stroke too - stroke w/u was also ordered including an MRI. This morning - he is back to his baseline mental status. His speech is also normal as per his . He has sig pain in left shoulder and arm and can barely move it. I reviewed his images from admission - no fx or dislocation noted on UE XR but a shoulder XR was missing so I ordered it for him. Review of Systems ROS Status of ROS 10 or more systems reviewed and unremarkable except as noted in history and below [facility] Medical History (Updated 03/04/23 @ 13:22 by Shaikh Germaine MD) Acute confusion ?R41.0 - Disorientation, unspecified (ICD-10) Carpal tunnel syndrome, bilateral ?G56.03 - Carpal tunnel syndrome, bilateral upper limbs (ICD-10) Chronic kidney disease ?N18.9 - Chronic kidney disease, unspecified (ICD-10) CKD stage 4 due to type 2 diabetes mellitus ?E11.22 - Type 2 diabetes mellitus with diabetic chronic kidney disease (ICD-10) ?N18.4 - Chronic kidney disease, stage 4 (severe) (ICD-10) COPD (chronic obstructive pulmonary disease) ?J44.9 - Chronic obstructive pulmonary disease, unspecified (ICD-10) Dementia ?F03.90 - Unspecified dementia, unspecified severity, without behavioral disturbance, psychotic disturbance, mood disturbance, and anxiety (ICD-10) Diabetes ?E11.9 - Type 2 diabetes mellitus without complications (ICD-10) Femoral artery stenosis ?I70.209 - Unspecified atherosclerosis of [place] arteries of extremities, unspecified extremity (ICD-10) Glaucoma ?H40.9 - Unspecified glaucoma (ICD-10) Gout ?M10.9 - Gout, unspecified (ICD-10) Hyperlipidemia ?E78.5 - Hyperlipidemia, unspecified (ICD-10) Hypertension ?I10 - Essential (primary) hypertension (ICD-10) Neuropathy ?G62.9 - Polyneuropathy, unspecified (ICD-10) Polyp of prostate with urinary obstruction ?N40.1 - Benign prostatic hyperplasia with lower urinary tract symptoms (ICD-10) ?N13.8 - Other obstructive and reflux uropathy (ICD-10) Weakness ?R53.1 - Weakness (ICD-10) Surgical History (Updated 03/03/23 @ 18:45 by Darling Sharma RN) History of appendectomy ?Z90.49 - Acquired absence of other specified parts of digestive tract (ICD-10) History of heart artery stent ?Z95.5 - Presence of coronary angioplasty implant and graft (ICD-10) Family History (Updated 03/03/23 @ 18:46 by Darling Sharma RN) Mother Family history of CHF (congestive heart failure) Family history of diabetes mellitus Family history of hypertension Grandfather Family history of CHF (congestive heart failure) Family history of diabetes mellitus Family history of hypertension Family history of myocardial infarction Grandmother Family history of hypertension Social History (Updated 03/03/23 @ 18:47 by Darling Sharma RN) Within the past year, how often did you have a drink containing alcohol: never Score interpretation: A score less than 4 is consistent with normal alcohol consumption. Smoking status: Current every day smoker Non-prescribed substance use: denies use Gender Identity: male Meds Home Medications and Allergies Home Medications Medication Instructions Recorded Confirmed Type aspirin 81 mg tablet,delayed 81 mg PO DAILY 03/03/23 03/03/23 History release atorvastatin 80 mg tablet 80 mg PO DAILY 03/03/23 03/03/23 History clopidogrel 75 mg tablet 75 mg PO DAILY 03/03/23 03/03/23 History dulaglutide 0.75 mg/0.5 mL 0.75 mg subcut DAILY 03/03/23 03/03/23 History subcutaneous pen injector (Trulicity) empagliflozin 10 mg tablet 10 mg PO DAILY 03/03/23 03/03/23 History (Jardiance) glimepiride 2 mg tablet 2 mg PO BID 03/03/23 03/03/23 History metformin 1,000 mg tablet 1,000 mg PO BID 03/03/23 03/04/23 History metoprolol tartrate 100 mg tablet 50 mg PO Q12H 03/03/23 03/04/23 History nitroglycerin 0.4 mg sublingual 0.4 mg sublingual Q5M PRN chest 03/03/23 03/03/23 History tablet pain omeprazole 40 mg capsule,delayed 40 mg PO DAILY 03/03/23 03/03/23 History release pregabalin 200 mg capsule 200 mg PO Q8H 03/03/23 03/03/23 History ropinirole 1 mg tablet 1 mg PO TID 03/03/23 03/04/23 History sildenafil 100 mg tablet 100 mg PO Q8H PRN sexual activity 03/03/23 03/03/23 History sitagliptin phosphate 100 mg 100 mg PO DAILY 03/03/23 03/03/23 History tablet (Januvia) tamsulosin 0.4 mg capsule (Flomax) 0.4 mg PO BID 03/03/23 03/04/23 History tiotropium bromide 2.5 2 puff inhalation Q24H PRN sob 03/03/23 03/03/23 History mcg/actuation mist for inhalation (Spiriva Respimat) valsartan 160 1 tab PO DAILY 03/03/23 03/03/23 History mg-hydrochlorothiazide 12.5 mg tablet amitriptyline 100 mg tablet 100 mg PO BEDTIME 03/04/23 03/04/23 History budesonide-formoterol HFA 160 2 inh inhalation BID 03/04/23 03/04/23 History mcg-4.5 mcg/actuation aerosol inhaler (Symbicort) tramadol 50 mg tablet 50 mg PO Q6H PRN pain 03/04/23 03/04/23 History Allergies Allergy/AdvReac Type Severity Reaction Status Date / Time Penicillins Allergy Severe Swelling Verified 03/03/23 22:47 of Lip/Tongue/Throat Exam Constitutional Vital Signs, click to edit/add: Last Vital Signs Temp 98.1 F 03/04/23 08:25 Pulse 85 03/04/23 08:25 Resp 18 03/04/23 08:25 BP 105/69 03/04/23 08:25 Pulse Ox 95 03/04/23 11:43 O2 Del Method Room Air 03/04/23 11:43 Documenting provider has reviewed patient's vital signs: yes Common normals: no apparent distress and oriented x3 General appearance: cooperative and frail appearing HENMT Common normals: normocephalic and head/scalp atraumatic Head and scalp: normocephalic and atraumatic Eye Common normals: conjunctivae normal and no scleral icterus Conjunctiva: conjunctiva(e) normal Respiratory Common normals: normal respiratory effort and clear to auscultation bilaterally Effort & inspection: able to speak in complete sentences Auscultation: clear to auscultation bilaterally Cardio Common normals: regular rate, S1 normal heart sound and S2 normal heart sound Rate: regular rate Heart sounds: S1 normal and S2 normal GI Common normals: Normal to inspection, nondistended, normoactive bowel sounds present, soft to palpation, non-tender and no hepatosplenomegaly Palpation: soft and no hepatosplenomegaly Extremity Common normals: no clubbing, cyanosis or edema Left upper extremity: shoulder joint Left shoulder joint: palpation (tenderness to palpation over shoulder - post and ant) and ROM (severely restricted ROM ) Neuro Common normals: oriented x3, moves all extremities and no focal motor deficits Psych Common normals: mental status grossly normal, denies hallucinations, denies homicidal ideation and denies suicidal ideation Results Labs Labs: Short CBC 03/03/23 Range/Units 16:20 WBC 21.1 H (4.0-11.0) 10^3/uL Hgb 11.3 L (14.0-18.0) g/dL Hct 36.2 L (42.0-54.0) % Plt Count 203 (150-450) 10^3/uL BMP 03/03/23 03/04/23 16:20 04:22 Sodium 132 L 135 L Potassium 4.2 3.6 Chloride 95 L 100 Carbon Dioxide 25.1 25.4 BUN 29.0 H 26.0 H Creatinine 2.91 H 2.23 H Glucose 271 H 56 L Calcium 8.5 7.8 L Liver Function 03/03/23 03/04/23 Range/Units 16:20 04:22 Total Bilirubin 0.6 0.6 (0.2-1.0) mg/dL AST 43 H 33 (15-37) U/L ALT 11 L 17 (16-63) U/L Alkaline Phosphatase 111 87 (46-116) U/L Albumin 3.1 L 2.4 L (3.4-5.0) g/dL Urine 03/03/23 Range/Units 17:24 Urine Color Lt. yellow (YELLOW) Urine Clarity Clear (CLEAR) Urine pH 6.0 (5.0-9.0) Ur Specific [place] 1.010 (1.005-1.025) Urine Protein Trace (NEG/TRACE) mg/dL Urine Glucose (UA) >=1000 A (NEGATIVE) mg/dL Assessment and Plan Assessment and Plan (1) Sepsis: Assessment and Plan: SIRS critria (HR >100, WBC 20k) Organ dysfunction (ROEL and metabolic encephalopathy) Source of infection is UTI. Stable hemodynamics now after initial resuscitation. F/u blood and urine cx Qualifiers: Sepsis type: sepsis due to unspecified organism Sepsis acute organ dysfunction status: with acute organ dysfunction Severe sepsis acute organ dysfunction type: encephalopathy (2) Acute UTI: Assessment and Plan: UTI - on IV levaquin F/u urine and blood cx (3) Metabolic encephalopathy: Assessment and Plan: No sig pathology noted on CTH. MRI brain pending to r/o CVA Resolved. Likely due to sepsis (4) ROEL (acute kidney injury): Assessment and Plan: Baseline Cr is 1.8--2.0 P/w Cr of 2.9 --> improving with hydration. Likely pre renal and due to sepsis. (5) Lactic acid acidosis: Assessment and Plan: due to sepsis and dehydration. Improved with hydration (6) Suspected cerebrovascular accident (CVA): Assessment and Plan: Suspected CVA on admission - with slurred speech, left arm weakness, confusion. All symptoms resolved and likely were due to sepsis. CTH negative for stroke MRI brain pending (7) Left arm pain: Assessment and Plan: Left arm pain - mostly localized at shoulder. XR Shoulder ordered. (8) Diabetes: Assessment and Plan: On oral meds as outpatient. SSI while in the hospital . Qualifiers: Diabetes mellitus type: type 2 Diabetes mellitus complication status: with kidney complications Diabetes mellitus complication detail: with chronic kidney disease Chronic kidney disease stage: stage 4 (severe) (9) COPD (chronic obstructive pulmonary disease): Assessment and Plan: Stable. C/w home meds. (10) Hypertension: Assessment and Plan: Hodl valsartan/HCTZ due to ROEL. Monitor BP while w/o meds (11) CKD stage 4 due to type 2 diabetes mellitus: Assessment and Plan: CKD 4 due to HTN, T2 DM Cr at baseline is 1.8--2.0 (12) Neuropathy: Assessment and Plan: due to T2 DM. On lyrica. C/w same (13) Dementia: Assessment and Plan: Baseline dementina with mild confusion intermittently. Back to his usual mental status. (14) Hyperlipidemia: Assessment and Plan: C/w statin
[2023-03-04] MEDS: PREGABALIN 100 MG CAPSULE 200 MG PO ×2 (14:21→21:56)
[2023-03-04 16:55] LABS: Glucometer 154 mg/dL (74-106)
[2023-03-04] MEDS: INSULIN ASPART 300 UNIT/3 ML PEN SUBQ ×2 (17:18→21:56)
[2023-03-04 20:10] LABS: Glucometer 270 mg/dL (74-106)
[2023-03-04] MEDS: NICOTINE 14 MG PATCH TD (20:27)
[2023-03-04] MEDS: METOPROLOL TARTRATE 50 MG TABLET PO (20:27)
[2023-03-04] MEDS: AMITRIPTYLINE HCL 50 MG TABLET 100 MG PO (21:55)
[2023-03-04] MEDS: HEPARIN SODIUM (PORCINE) 5,000 UNIT/ML VIAL 5000 UNIT SUBQ (21:57)
[2023-03-05] VITALS (18 sets, daily range): BP systolic 115–119; BP diastolic 69–71; PULSE 74–95; RESP 16–18; TEMP 36.1–37.1; O2SAT 90–100
[2023-03-05 04:39] LABS: Basophils Absolute Auto 0.1 10^3/uL (0.0-0.1); Basophils Percent Auto 0.6 % (0.2-2.0); Eosinophils Absolute Auto 0.3 10^3/uL (0.0-0.7); Eosinophils Percent Auto 2.3 % (0.9-7.0); Hematocrit 32.6 % (42.0-54.0); Immature Granulocytes Abs Auto 0.04 10^3/uL (0.00-0.03); Immature Granulocytes Pct Auto 0.4 % (0.0-0.5); Lymphocytes Absolute Auto 1.5 10^3/uL (1.2-3.8); Lymphocytes Percent Auto 13.8 % (20.5-60.0); Mean Corpuscular HGB Conc 30.7 g/dL (29.9-35.2); Mean Corpuscular Hemoglobin 23.9 pg (25.9-34.0); Mean Platelet Volume 11.2 fL (9.5-13.5); Monocytes Absolute Auto 1.2 10^3/uL (0.3-0.8); Monocytes Percent Auto 11.3 % (1.7-12.0); Neutrophils Absolute Auto 7.8 10^3/uL (1.4-6.5); Neutrophils Percent Auto 71.6 % (43.0-75.0); Platelet Count 184 10^3/uL (150-450); Red Blood Count 4.18 10^6/uL (4.70-6.10); Red Cell Distribution Width 17.5 % (11.0-15.0); White Blood Count 10.8 10^3/uL (4.0-11.0)
[2023-03-05 05:00] LABS: Alanine Aminotransferase 15 U/L (16-63); Albumin Globulin Ratio 0.6; Albumin Level 2.1 g/dL (3.4-5.0); Alkaline Phosphatase 91 U/L (46-116); Anion Gap 11.2; Aspartate Amino Transferase 23 U/L (15-37); BUN Creatinine Ratio 10.6; Bilirubin Total 0.4 mg/dL (0.2-1.0); Calcium 7.9 mg/dL (8.5-10.1); Carbon Dioxide 25.9 mmol/L (21.0-32.0); Chloride 103 mmol/L (98-107); Estimated GFR (African America 42 (>=60); Estimated GFR (Non-African Ame 35 (>=60); Globulin 3.7 g/dL; Glucose 114 mg/dL (74-106); Potassium 4.1 mmol/L (3.5-5.1); Sodium 136 mmol/L (136-145); Total Protein 5.8 g/dL (6.4-8.2)
[2023-03-05] MEDS: HEPARIN SODIUM (PORCINE) 5,000 UNIT/ML VIAL 5000 UNIT SUBQ ×3 (05:33→21:56)
[2023-03-05] MEDS: OMEPRAZOLE 40 MG CAPSULE.DR PO (05:33)
[2023-03-05] MEDS: PREGABALIN 100 MG CAPSULE 200 MG PO ×3 (05:33→22:11)
[2023-03-05] MEDS: ROPINIROLE HCL 1 MG TABLET PO ×3 (05:33→21:55)
[2023-03-05] MEDS: LACTATED RINGER'S SOLUTION 1,000 ML 125 ML IV (06:30)
[2023-03-05] MEDS: CLOPIDOGREL BISULFATE 75 MG TABLET PO (08:59)
[2023-03-05] MEDS: ATORVASTATIN CALCIUM 40 MG TABLET 80 MG PO (08:59)
[2023-03-05] MEDS: ASPIRIN 81 MG TABLET.DR PO (09:00)
[2023-03-05] MEDS: METOPROLOL TARTRATE 50 MG TABLET PO ×2 (09:00→21:56)
[2023-03-05] MEDS: TAMSULOSIN HCL 0.4 MG CAPSULE PO ×2 (09:00→21:56)
[2023-03-05] MEDS: OXYCODONE HCL 5 MG TABLET PO ×2 (09:00→15:25)
[2023-03-05 10:10] LABS: A. calcoaceticus-baumannii Cpx NOT DETECTED (NOT DETECTE); Bacteroides fragilis NOT DETECTED (NOT DETECTE); Candida albicans NOT DETECTED (NOT DETECTE); Candida auris NOT DETECTED (NOT DETECTE); Candida glabrata NOT DETECTED (NOT DETECTE); Candida krusei NOT DETECTED (NOT DETECTE); Candida parapsilosis NOT DETECTED (NOT DETECTE); Candida tropicalis NOT DETECTED (NOT DETECTE); Cryptococcus neoformans/gattii NOT DETECTED (NOT DETECTE); Enterobacter cloacae complex NOT DETECTED (NOT DETECTE); Enterobacterales NOT DETECTED (NOT DETECTE); Enterococcus faecalis NOT DETECTED (NOT DETECTE); Enterococcus faecium NOT DETECTED (NOT DETECTE); Haemophilus influenzae NOT DETECTED (NOT DETECTE); Klebsiella aerogenes NOT DETECTED (NOT DETECTE); Klebsiella pneumoniae group NOT DETECTED (NOT DETECTE); Listeria monocytogenes NOT DETECTED (NOT DETECTE); Neisseria meningitidis NOT DETECTED (NOT DETECTE); Proteus spp. NOT DETECTED (NOT DETECTE); Pseudomonas aeruginosa NOT DETECTED (NOT DETECTE); Salmonella spp. NOT DETECTED (NOT DETECTE); Serratia marcescens NOT DETECTED (NOT DETECTE); Staphylococcus epidermidis NOT DETECTED (NOT DETECTE); Staphylococcus lugdunensis NOT DETECTED (NOT DETECTE); Staphylococcus spp. NOT DETECTED (NOT DETECTE); Stenotrophomonas maltophilia NOT DETECTED (NOT DETECTE); Streptococcus agalactiae NOT DETECTED (NOT DETECTE); Streptococcus pneumoniae NOT DETECTED (NOT DETECTE); Streptococcus pyogenes NOT DETECTED (NOT DETECTE); Streptococcus spp. NOT DETECTED (NOT DETECTE)
--- NOTE | 2023-03-05 12:04 | PM.IMPN1 ---
Progress Note: A&P Assessment and Plan (1) Sepsis: Assessment and Plan: Stable hemodynamics. Stop IVF. Qualifiers: Sepsis acute organ dysfunction status: with acute organ dysfunction Sepsis type: sepsis due to unspecified organism Severe sepsis acute organ dysfunction type: encephalopathy (2) Acute UTI: Assessment and Plan: UTI sec to Klebsiella. C/w levaquin. Sensitivity is pending. (3) Metabolic encephalopathy: Assessment and Plan: Back to baseline mental status. MRI head negative for stroke (4) ROEL (acute kidney injury): Assessment and Plan: Cr back to baseline. Stop IVF. Monitor. (5) Lactic acid acidosis: Assessment and Plan: due to sepsis. Improved. (6) Suspected cerebrovascular accident (CVA): Assessment and Plan: MRI brain negative for stroke. No concern for CVA and his neurological symptoms were likely due to sepsis (7) Left arm pain: Assessment and Plan: No fx on XR. Likely soft tissue injury. Improvign pain with PT/OT. (8) Diabetes: Assessment and Plan: SSI while in patient. Qualifiers: Diabetes mellitus type: type 2 Diabetes mellitus complication status: with kidney complications Diabetes mellitus complication detail: with chronic kidney disease Chronic kidney disease stage: stage 4 (severe) (9) COPD (chronic obstructive pulmonary disease): Assessment and Plan: Duonebs as needed (10) Hypertension: Assessment and Plan: Continue to hold BP meds for now (11) CKD stage 4 due to type 2 diabetes mellitus: Assessment and Plan: Cr back to baseline. Monitor. (12) Neuropathy: Assessment and Plan: C/w lyrica. (13) Dementia: Assessment and Plan: Mild dementia. Back to baseline mental status. Monitor (14) Hyperlipidemia: Assessment and Plan: C/w statin Internal Medicine - PN: Subj Subjective Interval history: Seen and examined. Doing well. No complaints to offer except for left arm pain Exam Constitutional Vital Signs, click to edit/add: Last Vital Signs Temp 97.9 F 03/05/23 08:58 Pulse 82 03/05/23 11:51 Resp 16 03/05/23 08:58 BP 115/69 03/05/23 08:58 Pulse Ox 98 03/05/23 08:58 O2 Del Method Room Air 03/05/23 08:58 Documenting provider has reviewed patient's vital signs: yes Common normals: no apparent distress and oriented x3 General appearance: cooperative and frail appearing HENTX Common normals: normocephalic and head/scalp atraumatic Head and scalp: normocephalic and atraumatic Eye Common normals: conjunctivae normal and no scleral icterus Conjunctiva: conjunctiva(e) normal Respiratory Common normals: normal respiratory effort and clear to auscultation bilaterally Effort & inspection: able to speak in complete sentences Auscultation: clear to auscultation bilaterally Cardio Common normals: regular rate, S1 normal heart sound and S2 normal heart sound Rate: regular rate Heart sounds: S1 normal and S2 normal GI Common normals: Normal to inspection, nondistended, normoactive bowel sounds present, soft to palpation, non-tender and no hepatosplenomegaly Palpation: soft and no hepatosplenomegaly Extremity Common normals: no clubbing, cyanosis or edema Left upper extremity: shoulder joint Left shoulder joint: palpation (pain is improved) and ROM (ROM improved) Neuro Common normals: oriented x3, moves all extremities and no focal motor deficits Psych Common normals: mental status grossly normal, denies hallucinations, denies homicidal ideation and denies suicidal ideation Internal Medicine - PN: Obj Da Labs Labs: Laboratory Results - last 24 hr 03/04/23 03/04/23 03/05/23 16:54 20:09 04:25 WBC 10.8 RBC 4.18 L Hgb 10.0 L Hct 32.6 L MCV 78.0 L MCH 23.9 L MCHC 30.7 RDW 17.5 H Plt Count 184 MPV 11.2 Neut % (Auto) 71.6 Lymph % (Auto) 13.8 L [place] % (Auto) 11.3 Eos % (Auto) 2.3 Baso % (Auto) 0.6 Neut # (Auto) 7.8 H Lymph # (Auto) 1.5 [place] # (Auto) 1.2 H Eos # (Auto) 0.3 Baso # (Auto) 0.1 Abs Immat Gran (auto) 0.04 H Imm/Tot Granulo (auto) 0.4 Sodium 136 Potassium 4.1 Chloride 103 Carbon Dioxide 25.9 Anion Gap 11.2 BUN 21.0 H Creatinine 1.99 H Est GFR ( Amer) 42 L Est GFR (Non-Af Amer) 35 L BUN/Creatinine Ratio 10.6 Glucose 114 H Calcium 7.9 L Total Bilirubin 0.4 AST 23 ALT 15 L Alkaline Phosphatase 91 Total Protein 5.8 L Albumin 2.1 L Globulin 3.7 Albumin/Globulin Ratio 0.6 POC Glucose 154 H 270 H Urinary Catheter Management Urinary Catheter Management Urethral: Cath placed during this visit: yes Urethral indwelling: Yes Reason for continuing: other continuation reason (BPH -urinary retention ) Insertion date: 03/03/23 Insertion time: 23:53
[2023-03-05 12:20] LABS: Glucometer 504 mg/dL (74-106)
[2023-03-05 12:22] LABS: Glucometer 351 mg/dL (74-106)
[2023-03-05] MEDS: INSULIN ASPART 300 UNIT/3 ML PEN SUBQ ×3 (12:22→21:57)
[2023-03-05 16:04] LABS: Glucometer 147 mg/dL (74-106)
[2023-03-05 20:35] LABS: Glucometer 178 mg/dL (74-106)
[2023-03-05] MEDS: AMITRIPTYLINE HCL 50 MG TABLET 100 MG PO (21:55)
[2023-03-05] MEDS: NICOTINE 14 MG PATCH TD (21:55)
[2023-03-06] VITALS (18 sets, daily range): BP systolic 122–145; BP diastolic 78–85; PULSE 71–86; RESP 16–18; TEMP 36.6–36.7; O2SAT 84–97
[2023-03-06] MEDS: HEPARIN SODIUM (PORCINE) 5,000 UNIT/ML VIAL 5000 UNIT SUBQ ×3 (06:09→21:03)
[2023-03-06] MEDS: OMEPRAZOLE 40 MG CAPSULE.DR PO (06:09)
[2023-03-06 06:10] LABS: Basophils Absolute Auto 0.1 10^3/uL (0.0-0.1); Basophils Percent Auto 0.8 % (0.2-2.0); Eosinophils Absolute Auto 0.3 10^3/uL (0.0-0.7); Eosinophils Percent Auto 3.5 % (0.9-7.0); Hematocrit 33.5 % (42.0-54.0); Hemoglobin 10.1 g/dL (14.0-18.0); Immature Granulocytes Abs Auto 0.04 10^3/uL (0.00-0.03); Immature Granulocytes Pct Auto 0.5 % (0.0-0.5); Lymphocytes Absolute Auto 1.2 10^3/uL (1.2-3.8); Lymphocytes Percent Auto 14.9 % (20.5-60.0); Mean Corpuscular HGB Conc 30.1 g/dL (29.9-35.2); Mean Corpuscular Volume 79.6 fL (80.0-94.0); Mean Platelet Volume 11.7 fL (9.5-13.5); Monocytes Absolute Auto 1.1 10^3/uL (0.3-0.8); Monocytes Percent Auto 12.7 % (1.7-12.0); Neutrophils Absolute Auto 5.6 10^3/uL (1.4-6.5); Neutrophils Percent Auto 67.6 % (43.0-75.0); Platelet Count 187 10^3/uL (150-450); Red Blood Count 4.21 10^6/uL (4.70-6.10); Red Cell Distribution Width 17.3 % (11.0-15.0); White Blood Count 8.3 10^3/uL (4.0-11.0)
[2023-03-06] MEDS: PREGABALIN 100 MG CAPSULE 200 MG PO ×3 (06:10→21:03)
[2023-03-06] MEDS: ROPINIROLE HCL 1 MG TABLET PO ×3 (06:10→21:03)
[2023-03-06 06:59] LABS: Alanine Aminotransferase 19 U/L (16-63); Albumin Globulin Ratio 0.6; Albumin Level 2.2 g/dL (3.4-5.0); Alkaline Phosphatase 110 U/L (46-116); Anion Gap 10.8; Aspartate Amino Transferase 23 U/L (15-37); BUN Creatinine Ratio 8.9; Bilirubin Total 0.4 mg/dL (0.2-1.0); Calcium 8.3 mg/dL (8.5-10.1); Carbon Dioxide 26.3 mmol/L (21.0-32.0); Chloride 101 mmol/L (98-107); Estimated GFR (African America 44 (>=60); Estimated GFR (Non-African Ame 36 (>=60); Glucose 198 mg/dL (74-106); Potassium 4.1 mmol/L (3.5-5.1); Sodium 134 mmol/L (136-145); Total Protein 6.2 g/dL (6.4-8.2)
[2023-03-06] MEDS: INSULIN ASPART 300 UNIT/3 ML PEN SUBQ ×3 (08:39→21:03)
[2023-03-06] MEDS: LOSARTAN POTASSIUM 50 MG TABLET 100 MG PO (08:40)
[2023-03-06] MEDS: ATORVASTATIN CALCIUM 40 MG TABLET 80 MG PO (08:42)
[2023-03-06] MEDS: TAMSULOSIN HCL 0.4 MG CAPSULE PO ×2 (08:42→21:03)
[2023-03-06] MEDS: CLOPIDOGREL BISULFATE 75 MG TABLET PO (08:42)
[2023-03-06] MEDS: ASPIRIN 81 MG TABLET.DR PO (08:43)
[2023-03-06] MEDS: METOPROLOL TARTRATE 50 MG TABLET PO ×2 (08:43→21:03)
[2023-03-06] MEDS: OXYCODONE HCL 5 MG TABLET PO (08:43)
--- NOTE | 2023-03-06 09:47 | SWNOTE1 ---
SW saw note in chart and pt's would like [facility] for rehab for pt. Pt had some confusion, SW to assess. SW did reach out to [facility] and they need SW to send face sheet so they can check pt's insurance. SW sent face sheet. Pt is a precert to go Skilled.
--- NOTE | 2023-03-06 10:30 | PT.DAILY ---
Physical Therapy Daily Note PT Daily Note/Assess Start: 03/06/23 10:25 Freq: Status: Active Protocol: Document 03/06/23 10:26 JENNIFER (Rec: 03/06/23 10:30 JENNIFER [id number]) Physical Therapy Daily Note/Assessment Time In/Time Out Time In 09:45 Time Out 10:00 Pain In Pain N/A Pain Out Pain N/A Subjective Subjective Pt sitting in BS chair upon arrival. Pt agrees to PT. L side sore per pt. Therapeutic Exercise Time Therapeutic Exercise Minutes (minutes) 3 Therapeutic Exercise Units 0 Therapeutic Exercise Treatment Therapeutic Exercise Treatment Seated bilat LE strengthening ex complete in BS chair 10x prior to gait. Therapeutic Activity Time Therapeutic Activity Minutes (minutes) 10 Therapeutic Activity Units 1 Therapeutic Activity Treatment Bed Mobility Ability Standby Assistance Chair Transfer Ability Standby Assistance Therapeutic Activity Comments Pt completes sit>stand with SBA to RW. Pt amb 100' with RW , SBA for safety. Demonstrates decreased matthew. Pt wishes to go to bed at this time. SBA for sit>supine transfer but does require increased time to complete. Remains supine with call light in reach and needs met. Total Physical Therapy Time Total Therapy Minutes 13 Total Physical Therapy Units 1 Summary Daily Note Summary Improved gait endurance and ability today. Fatigued post rx. L side soreness increased with standing.
[2023-03-06] MEDS: LEVOFLOXACIN IN DEXTROSE 5 % 250 MG/50 ML PIGGYBACK IV (11:02)
[2023-03-06 11:23] LABS: Glucometer 336 mg/dL (74-106)
--- NOTE | 2023-03-06 11:23 | SWNOTE1 ---
[place] is able to accept insurance, SW to send referral.
--- NOTE | 2023-03-06 11:31 | CM.NOTE ---
Rounds made with Dr. Herron. Discussed plan for discharge and Mary Gaston would like to go for additional therapy to get stronger. Await precert for discharge to [facility].
--- NOTE | 2023-03-06 12:10 | PM.IMPN1 ---
Progress Note: A&P Assessment and Plan (1) Sepsis: Assessment and Plan: Stable hemodynamics. Sec to UTI. Qualifiers: Sepsis acute organ dysfunction status: with acute organ dysfunction Sepsis type: sepsis due to unspecified organism Severe sepsis acute organ dysfunction type: encephalopathy (2) Acute UTI: Assessment and Plan: UTI sec to Klebsiella. C/w levaquin. Switch to PO levaquin (3) Metabolic encephalopathy: Assessment and Plan: Back to baseline mental status. MRI head negative for stroke (4) ROEL (acute kidney injury): Assessment and Plan: Cr back to baseline. Monitor. (5) Lactic acid acidosis: Assessment and Plan: due to sepsis. Improved. (6) Suspected cerebrovascular accident (CVA): Assessment and Plan: MRI brain negative for stroke. No concern for CVA and his neurological symptoms were likely due to sepsis (7) Left arm pain: Assessment and Plan: No fx on XR. Likely soft tissue injury. Improving pain with PT/OT. (8) Diabetes: Assessment and Plan: SSI while in patient. Qualifiers: Diabetes mellitus type: type 2 Diabetes mellitus complication status: with kidney complications Diabetes mellitus complication detail: with chronic kidney disease Chronic kidney disease stage: stage 4 (severe) (9) COPD (chronic obstructive pulmonary disease): Assessment and Plan: Duonebs as needed (10) Hypertension: Assessment and Plan: Started Losartan today as BP was trending up. Uses valsartan at home - not in our formulary. (11) CKD stage 4 due to type 2 diabetes mellitus: Assessment and Plan: Cr back to baseline. Monitor. (12) Neuropathy: Assessment and Plan: C/w lyrica. (13) Dementia: Assessment and Plan: Mild dementia. Back to baseline mental status. Monitor (14) Hyperlipidemia: Assessment and Plan: C/w statin Plan Awaiting precertification for rehab placement Internal Medicine - PN: Subj Subjective Interval history: Seen and examined. Doing well. No overnight events. No active complaints except for left arm pain Exam Constitutional Vital Signs, click to edit/add: Last Vital Signs Temp 97.9 F 03/06/23 04:59 Pulse 79 03/06/23 12:00 Resp 16 03/06/23 08:34 BP 130/85 03/06/23 08:34 Pulse Ox 96 03/06/23 08:34 O2 Del Method Room Air 03/06/23 08:34 Documenting provider has reviewed patient's vital signs: yes Common normals: no apparent distress and oriented x3 General appearance: cooperative and frail appearing HENMT Common normals: normocephalic and head/scalp atraumatic Head and scalp: normocephalic and atraumatic Eye Common normals: conjunctivae normal and no scleral icterus Conjunctiva: conjunctiva(e) normal Respiratory Common normals: normal respiratory effort and clear to auscultation bilaterally Effort & inspection: able to speak in complete sentences Auscultation: clear to auscultation bilaterally Cardio Common normals: regular rate, S1 normal heart sound and S2 normal heart sound Rate: regular rate Heart sounds: S1 normal and S2 normal GI Common normals: Normal to inspection, nondistended, normoactive bowel sounds present, soft to palpation, non-tender and no hepatosplenomegaly Palpation: soft and no hepatosplenomegaly Extremity Common normals: no clubbing, cyanosis or edema Left upper extremity: shoulder joint Left shoulder joint: ROM (ROM improved; only limited restriction now) Neuro Common normals: oriented x3, moves all extremities and no focal motor deficits Psych Common normals: mental status grossly normal, denies hallucinations, denies homicidal ideation and denies suicidal ideation Internal Medicine - PN: Obj Da Labs Labs: Laboratory Results - last 24 hr 03/03/23 03/05/23 03/05/23 17:19 12:19 12:21 WBC RBC Hgb Hct MCV MCH MCHC RDW Plt Count MPV Neut % (Auto) Lymph % (Auto) Russell % (Auto) Eos % (Auto) Baso % (Auto) Neut # (Auto) Lymph # (Auto) Russell # (Auto) Eos # (Auto) Baso # (Auto) Abs Immat Gran (auto) Imm/Tot Granulo (auto) Sodium Potassium Chloride Carbon Dioxide Anion Gap BUN Creatinine Est GFR ( Amer) Est GFR (Non-Af Amer) BUN/Creatinine Ratio Glucose Calcium Total Bilirubin AST ALT Alkaline Phosphatase Total Protein Albumin Globulin Albumin/Globulin Ratio Kamar H. influenza (PCR) Not detected A.calcoaceticus-baumannii cmplx PCR Not detected Bacteroides fragilis Not detected Adelita albicans (PCR) Not detected Adelita auris (PCR) Not detected C. glabrata (PCR) Not detected C. krusei (PCR) Not detected C. parapsilosis (PCR) Not detected C. tropicalis (PCR) Not detected C. neoform/gattii (PCR) Not detected Enterobacterales (PCR) Not detected E. cloacae complex PCR Not detected Enterococc faecalis PCR Not detected Enterococc faecium PCR Not detected E. coli (PCR) Not detected Klebsiella aerogenes (PCR) Not detected Klebsiella oxytoca PCR Not detected K. pneumoniae group (PCR) Not detected List. monocytogenes PCR Not detected N. meningitidis (PCR) Not detected Proteus spp. (copies/mL) Not detected Salmonella spp. (PCR) Not detected Serratia marcescens PCR Not detected Staphylococcus sp PCR Not detected Staph aureus (PCR) Not detected mecA/C & MREJ Resist Gene Not applicable mecA/C-Methicil Resis Gene Not applicable mcr-1 Colistin Res Gene PCR Not applicable Staph epidermidis (PCR) Not detected Staph lugdunensis (TEM-PCR) Not detected S. maltophilia (PCR) Not detected Streptococcus sp PCR Not detected Strep agalactiae (PCR) Not detected Strep pneumoniae (PCR) Not detected S. pyogenes (PCR) Not detected P. aeruginosa (PCR) Not detected Tai/B-Vanco Res Genes Not applicable blaIMP Car res Gene PCR Not applicable KPC (blaKPC) Detect PCR Not applicable NDM (blaNDM) Detect PCR Not applicable OXA-48 Carbapenem Resis Gene (PCR) Not applicable blaVIM Car Res Gene PCR Not applicable CTX-M ESBL (PCR) Not applicable POC Glucose 504 H* 351 H 03/05/23 03/05/23 03/06/23 16:03 20:33 05:07 WBC 8.3 RBC 4.21 L Hgb 10.1 L Hct 33.5 L MCV 79.6 L MCH 24.0 L MCHC 30.1 RDW 17.3 H Plt Count 187 MPV 11.7 Neut % (Auto) 67.6 Lymph % (Auto) 14.9 L Russell % (Auto) 12.7 H Eos % (Auto) 3.5 Baso % (Auto) 0.8 Neut # (Auto) 5.6 Lymph # (Auto) 1.2 Russell # (Auto) 1.1 H Eos # (Auto) 0.3 Baso # (Auto) 0.1 Abs Immat Gran (auto) 0.04 H Imm/Tot Granulo (auto) 0.5 Sodium 134 L Potassium 4.1 Chloride 101 Carbon Dioxide 26.3 Anion Gap 10.8 BUN 17.0 Creatinine 1.92 H Est GFR ( Amer) 44 L Est GFR (Non-Af Amer) 36 L BUN/Creatinine Ratio 8.9 Glucose 198 H Calcium 8.3 L Total Bilirubin 0.4 AST 23 ALT 19 Alkaline Phosphatase 110 Total Protein 6.2 L Albumin 2.2 L Globulin 4.0 Albumin/Globulin Ratio 0.6 Kamar H. influenza (PCR) A.calcoaceticus-baumannii cmplx PCR Bacteroides fragilis Adelita albicans (PCR) Adelita auris (PCR) C. glabrata (PCR) C. krusei (PCR) C. parapsilosis (PCR) C. tropicalis (PCR) C. neoform/gattii (PCR) Enterobacterales (PCR) E. cloacae complex PCR Enterococc faecalis PCR Enterococc faecium PCR E. coli (PCR) Klebsiella aerogenes (PCR) Klebsiella oxytoca PCR K. pneumoniae group (PCR) List. monocytogenes PCR N. meningitidis (PCR) Proteus spp. (copies/mL) Salmonella spp. (PCR) Serratia marcescens PCR Staphylococcus sp PCR Staph aureus (PCR) mecA/C & MREJ Resist Gene mecA/C-Methicil Resis Gene mcr-1 Colistin Res Gene PCR Staph epidermidis (PCR) Staph lugdunensis (TEM-PCR) S. maltophilia (PCR) Streptococcus sp PCR Strep agalactiae (PCR) Strep pneumoniae (PCR) S. pyogenes (PCR) P. aeruginosa (PCR) Tai/B-Vanco Res Genes blaIMP Car res Gene PCR KPC (blaKPC) Detect PCR NDM (blaNDM) Detect PCR OXA-48 Carbapenem Resis Gene (PCR) blaVIM Car Res Gene PCR CTX-M ESBL (PCR) POC Glucose 147 H 178 H 03/06/23 11:21 WBC RBC Hgb Hct MCV MCH MCHC RDW Plt Count MPV Neut % (Auto) Lymph % (Auto) Russell % (Auto) Eos % (Auto) Baso % (Auto) Neut # (Auto) Lymph # (Auto) Russell # (Auto) Eos # (Auto) Baso # (Auto) Abs Immat Gran (auto) Imm/Tot Granulo (auto) Sodium Potassium Chloride Carbon Dioxide Anion Gap BUN Creatinine Est GFR ( Amer) Est GFR (Non-Af Amer) BUN/Creatinine Ratio Glucose Calcium Total Bilirubin AST ALT Alkaline Phosphatase Total Protein Albumin Globulin Albumin/Globulin Ratio Kamar H. influenza (PCR) A.calcoaceticus-baumannii cmplx PCR Bacteroides fragilis Adelita albicans (PCR) Adelita auris (PCR) C. glabrata (PCR) C. krusei (PCR) C. parapsilosis (PCR) C. tropicalis (PCR) C. neoform/gattii (PCR) Enterobacterales (PCR) E. cloacae complex PCR Enterococc faecalis PCR Enterococc faecium PCR E. coli (PCR) Klebsiella aerogenes (PCR) Klebsiella oxytoca PCR K. pneumoniae group (PCR) List. monocytogenes PCR N. meningitidis (PCR) Proteus spp. (copies/mL) Salmonella spp. (PCR) Serratia marcescens PCR Staphylococcus sp PCR Staph aureus (PCR) mecA/C & MREJ Resist Gene mecA/C-Methicil Resis Gene mcr-1 Colistin Res Gene PCR Staph epidermidis (PCR) Staph lugdunensis (TEM-PCR) S. maltophilia (PCR) Streptococcus sp PCR Strep agalactiae (PCR) Strep pneumoniae (PCR) S. pyogenes (PCR) P. aeruginosa (PCR) Tai/B-Vanco Res Genes blaIMP Car res Gene PCR KPC (blaKPC) Detect PCR NDM (blaNDM) Detect PCR OXA-48 Carbapenem Resis Gene (PCR) blaVIM Car Res Gene PCR CTX-M ESBL (PCR) POC Glucose 336 H Urinary Catheter Management Urinary Catheter Management Urethral: Cath placed during this visit: yes Urethral indwelling: Yes Reason for continuing: other continuation reason (BPH -urinary retention ) Insertion date: 03/03/23 Insertion time: 23:53
--- NOTE | 2023-03-06 14:14 | SWNOTE1 ---
SW met with pt to discuss his dc needs. Pt is aware and agreeable to go to skilled and he wants [facility]. 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 Pt stated he had some falls at home and needs to get stronger. At this time pt voices no needs. SW let him know we will let him know we are waiting for insurance to approve or deny him before he can be discharged.
--- NOTE | 2023-03-06 16:00 | SWNOTE1 ---
SW received a call from nursing and pt's called the floor and has voiced that her and pt have spoke and they do not feel he needs to go SNF anymore. would like SW to call her. SW called and left message for pt's .
[2023-03-06 16:31] LABS: Glucometer 150 mg/dL (74-106)
[2023-03-06] MEDS: LEVOFLOXACIN 500 MG TABLET 250 MG PO (18:15)
[2023-03-06 20:05] LABS: Glucometer 208 mg/dL (74-106)
[2023-03-06] MEDS: NICOTINE 14 MG PATCH TD (21:03)
[2023-03-06] MEDS: AMITRIPTYLINE HCL 50 MG TABLET 100 MG PO (21:03)
[2023-03-07] VITALS (19 sets, daily range): BP systolic 120–145; BP diastolic 78–88; PULSE 68–84; RESP 18; TEMP 36.4–36.6; O2SAT 93–96
[2023-03-07] MEDS: ROPINIROLE HCL 1 MG TABLET PO ×3 (05:47→22:12)
[2023-03-07] MEDS: OMEPRAZOLE 40 MG CAPSULE.DR PO (05:47)
[2023-03-07] MEDS: PREGABALIN 100 MG CAPSULE 200 MG PO ×3 (05:47→22:13)
[2023-03-07] MEDS: HEPARIN SODIUM (PORCINE) 5,000 UNIT/ML VIAL 5000 UNIT SUBQ ×3 (05:47→22:13)
[2023-03-07 06:03] LABS: Basophils Absolute Auto 0.1 10^3/uL (0.0-0.1); Basophils Percent Auto 0.8 % (0.2-2.0); Eosinophils Absolute Auto 0.3 10^3/uL (0.0-0.7); Eosinophils Percent Auto 3.7 % (0.9-7.0); Hematocrit 35.2 % (42.0-54.0); Hemoglobin 10.7 g/dL (14.0-18.0); Immature Granulocytes Abs Auto 0.04 10^3/uL (0.00-0.03); Immature Granulocytes Pct Auto 0.5 % (0.0-0.5); Lymphocytes Absolute Auto 1.2 10^3/uL (1.2-3.8); Lymphocytes Percent Auto 13.5 % (20.5-60.0); Mean Corpuscular HGB Conc 30.4 g/dL (29.9-35.2); Mean Corpuscular Hemoglobin 23.9 pg (25.9-34.0); Mean Corpuscular Volume 78.7 fL (80.0-94.0); Mean Platelet Volume 11.5 fL (9.5-13.5); Monocytes Absolute Auto 0.9 10^3/uL (0.3-0.8); Monocytes Percent Auto 10.9 % (1.7-12.0); Neutrophils Absolute Auto 6.1 10^3/uL (1.4-6.5); Neutrophils Percent Auto 70.6 % (43.0-75.0); Platelet Count 205 10^3/uL (150-450); Red Blood Count 4.47 10^6/uL (4.70-6.10); White Blood Count 8.6 10^3/uL (4.0-11.0)
[2023-03-07 06:19] LABS: Alanine Aminotransferase 24 U/L (16-63); Albumin Globulin Ratio 0.6; Albumin Level 2.3 g/dL (3.4-5.0); Alkaline Phosphatase 141 U/L (46-116); Anion Gap 12.6; Aspartate Amino Transferase 27 U/L (15-37); BUN Creatinine Ratio 8.7; Bilirubin Total 0.4 mg/dL (0.2-1.0); Carbon Dioxide 25.5 mmol/L (21.0-32.0); Chloride 101 mmol/L (98-107); Estimated GFR (African America 50 (>=60); Estimated GFR (Non-African Ame 41 (>=60); Globulin 4.1 g/dL; Glucose 158 mg/dL (74-106); Potassium 4.1 mmol/L (3.5-5.1); Sodium 135 mmol/L (136-145); Total Protein 6.4 g/dL (6.4-8.2)
[2023-03-07] MEDS: LOSARTAN POTASSIUM 50 MG TABLET 100 MG PO (08:45)
[2023-03-07] MEDS: ATORVASTATIN CALCIUM 40 MG TABLET 80 MG PO (08:45)
[2023-03-07] MEDS: ASPIRIN 81 MG TABLET.DR PO (08:45)
[2023-03-07] MEDS: LEVOFLOXACIN 500 MG TABLET 250 MG PO (08:45)
[2023-03-07] MEDS: METOPROLOL TARTRATE 50 MG TABLET PO ×2 (08:45→21:26)
[2023-03-07] MEDS: INSULIN ASPART 300 UNIT/3 ML PEN SUBQ ×4 (08:45→22:13)
[2023-03-07] MEDS: TAMSULOSIN HCL 0.4 MG CAPSULE PO ×2 (08:45→21:26)
[2023-03-07] MEDS: CLOPIDOGREL BISULFATE 75 MG TABLET PO (08:46)
--- NOTE | 2023-03-07 09:24 | SWNOTE1 ---
SW received a call last night and nursing spoke with again and she wants to see if pt gets approved for SNF.
[2023-03-07 11:14] LABS: Glucometer 279 mg/dL (74-106)
--- NOTE | 2023-03-07 11:15 | PT.DAILY ---
Physical Therapy Daily Note PT Daily Note/Assess Start: 03/06/23 10:25 Freq: Status: Active Protocol: Document 03/07/23 10:25 NIKKO (Rec: 03/07/23 11:15 NIKKO [id number]) Physical Therapy Daily Note/Assessment Time In/Time Out Time In 10:25 Time Out 10:42 Pain In Pain N/A Pain Out Pain N/A Subjective Subjective Main complaints are stiffness. Therapeutic Activity Time Therapeutic Activity Minutes (minutes) 15 Therapeutic Activity Units 1 Therapeutic Activity Treatment Bed Mobility Ability Modified Independent Chair Transfer Ability Standby Assistance Therapeutic Activity Comments Sit to stand at RW with SBA. Gait 100 ft. with RW SBA. Slow but steady. Denies increase in pain with walking. Sit to supine modified ind. and then able to self position in bed. Total Physical Therapy Time Total Therapy Minutes 15 Total Physical Therapy Units 1 Summary Daily Note Summary Improving strength with ability to complete transfers, gait and bed mobility. Does take time and is slow moving, but does not lose balance, and demonstrates good safety awareness.
--- NOTE | 2023-03-07 11:20 | RESP.RT ---
Patient asleep no distress noted
[2023-03-07] MEDS: OXYCODONE HCL 5 MG TABLET PO ×2 (11:28→19:52)
[2023-03-07] MEDS: ACETAMINOPHEN 325 MG TABLET 650 MG PO ×2 (11:28→19:54)
--- NOTE | 2023-03-07 11:58 | CM.NOTE ---
Rounds made with Dr. Herron. Continue to await precert for Skilled Therapy. Offers no other complaints.
--- NOTE | 2023-03-07 13:25 | SWNOTE1 ---
SW called and left voicemail for admissions, waiting for call back. SW was checking on precert. SW sent over updates.
--- NOTE | 2023-03-07 14:15 | SWNOTE1 ---
Pt's called from [facility] (she works there) and asked for updates and what would happen if he get denies. She asked if pt could go to different facility. SW explained if pt gets denied that if his insurance denies skilled then we cannot try another facility because it was already denied by insurance. She voiced understanding. MILANA let her know that SW left message for admissions at [facility] and waiting to hear back.
[2023-03-07 15:49] LABS: Glucometer 178 mg/dL (74-106)
--- NOTE | 2023-03-07 15:53 | SWNOTE1 ---
SW spoke with admissions from [facility] and precert was just started today due to admissions having to wait and make sure the DON approved of starting precert. No approval yet from insurance. Updates were submitted to [facility] and insurance.
--- NOTE | 2023-03-07 16:19 | PM.IMPN1 ---
Progress Note: A&P Assessment and Plan (1) Sepsis: Assessment and Plan: Stable hemodynamics. Sec to UTI. Qualifiers: Sepsis acute organ dysfunction status: with acute organ dysfunction Sepsis type: sepsis due to unspecified organism Severe sepsis acute organ dysfunction type: encephalopathy (2) Acute UTI: Assessment and Plan: UTI sec to Klebsiella. C/w levaquin. (3) Metabolic encephalopathy: Assessment and Plan: Back to baseline mental status. MRI head negative for stroke (4) ROEL (acute kidney injury): Assessment and Plan: Cr back to baseline. Monitor. (5) Lactic acid acidosis: Assessment and Plan: due to sepsis. Improved. (6) Suspected cerebrovascular accident (CVA): Assessment and Plan: MRI brain negative for stroke. No concern for CVA and his neurological symptoms were likely due to sepsis (7) Left arm pain: Assessment and Plan: more or less resolved. (8) Diabetes: Assessment and Plan: SSI while in patient. Qualifiers: Diabetes mellitus type: type 2 Diabetes mellitus complication status: with kidney complications Diabetes mellitus complication detail: with chronic kidney disease Chronic kidney disease stage: stage 4 (severe) (9) COPD (chronic obstructive pulmonary disease): Assessment and Plan: Duonebs as needed (10) Hypertension: Assessment and Plan: Started Losartan today as BP was trending up. Uses valsartan at home - not in our formulary. (11) CKD stage 4 due to type 2 diabetes mellitus: Assessment and Plan: Cr back to baseline. Monitor. (12) Neuropathy: Assessment and Plan: C/w lyrica. (13) Dementia: Assessment and Plan: Mild dementia. Back to baseline mental status. Monitor (14) Hyperlipidemia: Assessment and Plan: C/w statin Plan Awaiting precertification for rehab placement Internal Medicine - PN: Subj Subjective Interval history: Seen and examined. Doing well. No overnight events. Exam Constitutional Vital Signs, click to edit/add: Last Vital Signs Temp 97.7 F 03/07/23 14:00 Pulse 72 03/07/23 14:00 Resp 18 03/07/23 14:00 BP 120/78 03/07/23 14:00 Pulse Ox 94 L 03/07/23 14:00 O2 Del Method Room Air 03/07/23 14:00 Documenting provider has reviewed patient's vital signs: yes Common normals: no apparent distress and oriented x3 General appearance: cooperative and frail appearing HENMT Common normals: normocephalic and head/scalp atraumatic Head and scalp: normocephalic and atraumatic Respiratory Common normals: normal respiratory effort and clear to auscultation bilaterally Effort & inspection: able to speak in complete sentences Auscultation: clear to auscultation bilaterally Cardio Common normals: regular rate, S1 normal heart sound and S2 normal heart sound Rate: regular rate Heart sounds: S1 normal and S2 normal Extremity Common normals: no clubbing, cyanosis or edema Left upper extremity: shoulder joint Left shoulder joint: ROM (ROM improved; only limited restriction now) Neuro Common normals: oriented x3, moves all extremities and no focal motor deficits Internal Medicine - PN: Obj Da Labs Labs: Laboratory Results - last 24 hr 03/06/23 03/06/23 03/07/23 16:28 20:03 05:08 WBC 8.6 RBC 4.47 L Hgb 10.7 L Hct 35.2 L MCV 78.7 L MCH 23.9 L MCHC 30.4 RDW 17.0 H Plt Count 205 MPV 11.5 Neut % (Auto) 70.6 Lymph % (Auto) 13.5 L Daniels % (Auto) 10.9 Eos % (Auto) 3.7 Baso % (Auto) 0.8 Neut # (Auto) 6.1 Lymph # (Auto) 1.2 Daniels # (Auto) 0.9 H Eos # (Auto) 0.3 Baso # (Auto) 0.1 Abs Immat Gran (auto) 0.04 H Imm/Tot Granulo (auto) 0.5 Sodium 135 L Potassium 4.1 Chloride 101 Carbon Dioxide 25.5 Anion Gap 12.6 BUN 15.0 Creatinine 1.72 H Est GFR ( Amer) 50 L Est GFR (Non-Af Amer) 41 L BUN/Creatinine Ratio 8.7 Glucose 158 H Calcium 9.0 Total Bilirubin 0.4 AST 27 ALT 24 Alkaline Phosphatase 141 H Total Protein 6.4 Albumin 2.3 L Globulin 4.1 Albumin/Globulin Ratio 0.6 POC Glucose 150 H 208 H 03/07/23 03/07/23 11:13 15:45 WBC RBC Hgb Hct MCV MCH MCHC RDW Plt Count MPV Neut % (Auto) Lymph % (Auto) Daniels % (Auto) Eos % (Auto) Baso % (Auto) Neut # (Auto) Lymph # (Auto) Daniels # (Auto) Eos # (Auto) Baso # (Auto) Abs Immat Gran (auto) Imm/Tot Granulo (auto) Sodium Potassium Chloride Carbon Dioxide Anion Gap BUN Creatinine Est GFR ( Amer) Est GFR (Non-Af Amer) BUN/Creatinine Ratio Glucose Calcium Total Bilirubin AST ALT Alkaline Phosphatase Total Protein Albumin Globulin Albumin/Globulin Ratio POC Glucose 279 H 178 H Urinary Catheter Management Urinary Catheter Management Urethral: Cath placed during this visit: yes Urethral indwelling: Yes Reason for continuing: other continuation reason (BPH -urinary retention ) Insertion date: 03/03/23 Insertion time: 23:53
[2023-03-07] MEDS: NICOTINE 14 MG PATCH TD (21:26)
[2023-03-07 22:12] LABS: Glucometer 219 mg/dL (74-106)
[2023-03-07] MEDS: AMITRIPTYLINE HCL 50 MG TABLET 100 MG PO (22:12)
[2023-03-08] VITALS (17 sets, daily range): BP systolic 113–153; BP diastolic 73–96; PULSE 69–84; RESP 18–20; TEMP 36.3–36.6; O2SAT 93–97
[2023-03-08 04:42] LABS: Basophils Absolute Auto 0.1 10^3/uL (0.0-0.1); Basophils Percent Auto 1.4 % (0.2-2.0); Eosinophils Absolute Auto 0.4 10^3/uL (0.0-0.7); Hematocrit 34.7 % (42.0-54.0); Hemoglobin 10.5 g/dL (14.0-18.0); Immature Granulocytes Abs Auto 0.05 10^3/uL (0.00-0.03); Immature Granulocytes Pct Auto 0.6 % (0.0-0.5); Lymphocytes Absolute Auto 1.7 10^3/uL (1.2-3.8); Lymphocytes Percent Auto 20.9 % (20.5-60.0); Mean Corpuscular HGB Conc 30.3 g/dL (29.9-35.2); Mean Corpuscular Volume 79.2 fL (80.0-94.0); Mean Platelet Volume 11.3 fL (9.5-13.5); Monocytes Absolute Auto 0.9 10^3/uL (0.3-0.8); Monocytes Percent Auto 11.4 % (1.7-12.0); Neutrophils Absolute Auto 4.9 10^3/uL (1.4-6.5); Neutrophils Percent Auto 60.7 % (43.0-75.0); Platelet Count 205 10^3/uL (150-450); Red Blood Count 4.38 10^6/uL (4.70-6.10); Red Cell Distribution Width 17.1 % (11.0-15.0)
[2023-03-08 04:58] LABS: Alanine Aminotransferase 28 U/L (16-63); Albumin Globulin Ratio 0.5; Albumin Level 2.3 g/dL (3.4-5.0); Alkaline Phosphatase 130 U/L (46-116); Aspartate Amino Transferase 24 U/L (15-37); BUN Creatinine Ratio 7.9; Bilirubin Total 0.4 mg/dL (0.2-1.0); Calcium 8.5 mg/dL (8.5-10.1); Carbon Dioxide 28.1 mmol/L (21.0-32.0); Chloride 103 mmol/L (98-107); Estimated GFR (African America 45 (>=60); Estimated GFR (Non-African Ame 37 (>=60); Globulin 4.2 g/dL; Glucose 176 mg/dL (74-106); Potassium 4.1 mmol/L (3.5-5.1); Sodium 137 mmol/L (136-145); Total Protein 6.5 g/dL (6.4-8.2)
[2023-03-08] MEDS: OMEPRAZOLE 40 MG CAPSULE.DR PO (06:12)
[2023-03-08] MEDS: HEPARIN SODIUM (PORCINE) 5,000 UNIT/ML VIAL 5000 UNIT SUBQ ×3 (06:12→21:04)
[2023-03-08] MEDS: ROPINIROLE HCL 1 MG TABLET PO ×3 (06:13→21:03)
[2023-03-08] MEDS: PREGABALIN 100 MG CAPSULE 200 MG PO ×3 (06:13→21:02)
[2023-03-08] MEDS: OXYCODONE HCL 5 MG TABLET PO (06:13)
[2023-03-08] MEDS: CLOPIDOGREL BISULFATE 75 MG TABLET PO (08:04)
[2023-03-08] MEDS: METOPROLOL TARTRATE 50 MG TABLET PO ×2 (08:04→21:03)
[2023-03-08] MEDS: ATORVASTATIN CALCIUM 40 MG TABLET 80 MG PO (08:04)
[2023-03-08] MEDS: ASPIRIN 81 MG TABLET.DR PO (08:04)
[2023-03-08] MEDS: LOSARTAN POTASSIUM 50 MG TABLET 100 MG PO (08:04)
[2023-03-08] MEDS: TAMSULOSIN HCL 0.4 MG CAPSULE PO ×2 (08:05→21:03)
[2023-03-08] MEDS: INSULIN ASPART 300 UNIT/3 ML PEN SUBQ ×4 (08:05→21:07)
[2023-03-08] MEDS: LEVOFLOXACIN 500 MG TABLET 250 MG PO (08:05)
--- NOTE | 2023-03-08 09:22 | SWNOTE1 ---
[facility] called and spoke with admissions. They have NOT received approval from the insurance company yet. The clinical team at [facility] has approved but not the insurance, we have to wait for the insurance approval before pt can be sent to [facility]. MILANA updated case management and nursing.
--- NOTE | 2023-03-08 10:02 | CM.NOTE ---
Rounds made with Dr. Herron. Awaiting precert from insurance.
[2023-03-08 11:30] LABS: Glucometer 325 mg/dL (74-106)
--- NOTE | 2023-03-08 11:52 | SWNOTE1 ---
Updates sent to [place].
--- NOTE | 2023-03-08 12:06 | PM.DS1 ---
DS: Providers Provider Date of admission: 03/03/23 18:30 Primary care physician: Non-Staff PhysicianMD Consults: 03/03/23 20:42 Occupational Therapy Eval and Treat Routine Reason for consultation: falls Physical Therapy Eval and Treat Routine Reason for consultation: falls DS: Diagnosis Discharge Diagnosis (1) Sepsis: Qualifiers: Sepsis acute organ dysfunction status: with acute organ dysfunction Sepsis type: sepsis due to unspecified organism Severe sepsis acute organ dysfunction type: encephalopathy (2) Acute UTI: (3) Metabolic encephalopathy: (4) ROEL (acute kidney injury): (5) Lactic acid acidosis: (6) Suspected cerebrovascular accident (CVA): (7) Left arm pain: (8) Diabetes: Qualifiers: Diabetes mellitus type: type 2 Diabetes mellitus complication status: with kidney complications Diabetes mellitus complication detail: with chronic kidney disease Chronic kidney disease stage: stage 4 (severe) (9) COPD (chronic obstructive pulmonary disease): (10) Hypertension: (11) CKD stage 4 due to type 2 diabetes mellitus: (12) Neuropathy: (13) Dementia: (14) Hyperlipidemia: DS: Summary Hospital Course Hospital Course: Date/Time of Exam: 03/08/23 1020 Time Spent with Patient Time attestation: Total time spent providing and/or coordinating discharge services: Exam Constitutional Vital Signs, click to edit/add: Last Vital Signs Temp 97.9 F 03/08/23 06:00 Pulse 82 03/08/23 07:00 Resp 20 03/08/23 06:00 BP 133/85 03/08/23 08:04 Pulse Ox 97 03/08/23 06:00 O2 Del Method Room Air 03/08/23 06:00 DS: Data Data Completed and Pending Labs on day of discharge: Labs from last 24 hours 03/08/23 03/08/23 03/07/23 11:28 03:59 22:09 WBC 8.0 RBC 4.38 L Hgb 10.5 L Hct 34.7 L MCV 79.2 L MCH 24.0 L MCHC 30.3 RDW 17.1 H Plt Count 205 MPV 11.3 Neut % (Auto) 60.7 Lymph % (Auto) 20.9 [place] % (Auto) 11.4 Eos % (Auto) 5.0 Baso % (Auto) 1.4 Neut # (Auto) 4.9 Lymph # (Auto) 1.7 [place] # (Auto) 0.9 H Eos # (Auto) 0.4 Baso # (Auto) 0.1 Abs Immat Gran (auto) 0.05 H Imm/Tot Granulo (auto) 0.6 H Sodium 137 Potassium 4.1 Chloride 103 Carbon Dioxide 28.1 Anion Gap 10.0 BUN 15.0 Creatinine 1.89 H Est GFR ( Amer) 45 L Est GFR (Non-Af Amer) 37 L BUN/Creatinine Ratio 7.9 Glucose 176 H Calcium 8.5 Total Bilirubin 0.4 AST 24 ALT 28 Alkaline Phosphatase 130 H Total Protein 6.5 Albumin 2.3 L Globulin 4.2 Albumin/Globulin Ratio 0.5 POC Glucose 325 H 219 H 03/07/23 15:45 WBC RBC Hgb Hct MCV MCH MCHC RDW Plt Count MPV Neut % (Auto) Lymph % (Auto) [place] % (Auto) Eos % (Auto) Baso % (Auto) Neut # (Auto) Lymph # (Auto) [place] # (Auto) Eos # (Auto) Baso # (Auto) Abs Immat Gran (auto) Imm/Tot Granulo (auto) Sodium Potassium Chloride Carbon Dioxide Anion Gap BUN Creatinine Est GFR ( Amer) Est GFR (Non-Af Amer) BUN/Creatinine Ratio Glucose Calcium Total Bilirubin AST ALT Alkaline Phosphatase Total Protein Albumin Globulin Albumin/Globulin Ratio POC Glucose 178 H Preliminary micro results at discharge 03/03/23 17:10 Blood Culture Result 1 - Preliminary Blood NO GROWTH AT 36-48 HOURS. FINAL TO FOLLOW. 03/03/23 17:19 - Preliminary Blood Discharge Plan Discharge Disposition: Xfer SNF Condition: Fair Discharge Medications: New levofloxacin 500 mg Tablet 250 mg PO QD 4 Days Qty: 2 0RF Rx Instructions: Take medication until gone tramadol 50 mg tablet 50 mg PO Q6H PRN (Reason: pain) Qty: 20 0RF Continued aspirin 81 mg tablet,delayed release (DR/EC) 81 mg PO DAILY atorvastatin 80 mg tablet 80 mg PO DAILY clopidogrel 75 mg tablet 75 mg PO DAILY Trulicity 0.75 mg/0.5 mL pen injector 0.75 mg SUBCUT DAILY Jardiance 10 mg tablet 10 mg PO DAILY glimepiride 2 mg tablet 2 mg PO BID metformin 1,000 mg tablet 1,000 mg PO BID metoprolol tartrate 100 mg tablet 50 mg PO Q12H nitroglycerin 0.4 mg tablet, sublingual 0.4 mg sublingual Q5M PRN (Reason: chest pain) omeprazole 40 mg capsule,delayed release(DR/EC) 40 mg PO DAILY pregabalin 200 mg capsule 200 mg PO Q8H ropinirole 1 mg tablet 1 mg PO TID sildenafil 100 mg tablet 100 mg PO Q8H PRN (Reason: sexual activity) Januvia 100 mg tablet 100 mg PO DAILY Spiriva Respimat 2.5 mcg/actuation mist 2 puff INHALATION Q24H PRN (Reason: sob) valsartan-hydrochlorothiazide 160-12.5 mg tablet 1 tab PO DAILY tamsulosin [Flomax] 0.4 mg capsule 0.4 mg PO BID budesonide-formoterol [Symbicort] 160-4.5 mcg/actuation HFA aerosol inhaler 2 inh inhalation BID amitriptyline 100 mg tablet 100 mg PO BEDTIME Discontinued tramadol 50 mg tablet 50 mg PO Q6H PRN (Reason: pain) Activity Restrictions/Additional Instructions: - Obtain BMP weekly x 2 weeks - ROEL/CKD3b - Obtain daily VS x 2 weeks - PO/OT daily per facility protocol for generalized weakness s/p acute illness - Maintain burt catheter until instructed to remove per Dr Silvestre, Urologist - Follow up w/ PCP in 7-14 days - Follow up w/ Dr Silvestre as scheduled [employer] Instructions: OK to d/c once insurance auth is obtained Forms: Portal Instructions Discharge location: [facility]
--- NOTE | 2023-03-08 12:43 | RESP.RT ---
Patient stated that he feels he does not need a treatment as of right now. Will notify the Nurse if needs one during the day.
--- NOTE | 2023-03-08 14:32 | SWNOTE1 ---
MILANA called [place] and spoke with admissions, he has not heard anything from insurance. MILANA let him know updates were sent. He will send updates to insurance.
--- NOTE | 2023-03-08 15:34 | P.PN_ITS ---
Patient seen and examined. Chart reviewed, case discussed with Elle. D/w patient. He is working well with PT. He is more or less close to his baseline functional status. He is agreeable to go home. Still awaiting precet from insurance. Patient will be discharged home with home health. Exam Sitting comfortably. NAD CTA b/l, normal RR NT, ND, BS+2 AAOX 3, non focal exam. Sepsis sec to UTI UTI sec to klebsiella. Will d/c on oral Levaquin Progress Note: Subjective Subjective Interval history: Date/Time of exam: 03/08/23 1020 Seen and examined. Doing well. No overnight events. The patient is sitting up in the bedside chair at time of my exam. He denies any acute symptoms such as chest pain, SOB, nausea/vomiting, or any other acute complaints. His mentation has returned to baseline and he remains afebrile. His leukocytosis has resolved since admission. He is tolerating PO Levaquin well. He is ready for discharge and has been accepted at [facility] ([place] but we are still awaiting insurance authorization. He will be discharged to [facility] once the insurance auth has been obtained. Exam Constitutional Vital Signs, click to edit/add: Last Vital Signs Temp 97.4 F L 03/08/23 14:11 Pulse 78 03/08/23 14:11 Resp 18 03/08/23 14:11 BP 113/73 03/08/23 14:11 Pulse Ox 97 03/08/23 14:11 O2 Del Method Room Air 03/08/23 14:11 Common normals: no apparent distress, oriented x3 and alert General appearance: cooperative Orientation/consciousness: Yes awake [facility] Common normals: normocephalic, head/scalp atraumatic and hearing grossly normal bilaterally Head and scalp: normocephalic and atraumatic Eye Common normals: PERRL, EOMs intact bilaterally, conjunctivae normal and no scleral icterus General eye: normal appearance of both eyes Conjunctiva: conjunctiva(e) normal Pupil: PERRL Neck & C-Spine Common normals: no JVD Chest Common normals: inspection of chest normal Chest: symmetrical chest wall rise and localized rib tenderness with anteroposterior compression (L lateral chest wall) Respiratory Common normals: normal respiratory effort, no use of accessory muscles and clear to auscultation bilaterally Effort & inspection: able to speak in complete sentences Auscultation: clear to auscultation bilaterally Cardio Common normals: no JVD, regular rate, regular rhythm, S1 normal heart sound, S2 normal heart sound, no gallops, no clicks, no murmurs, no rub and peripheral pulses 2+ throughout Rate: regular rate Rhythm: regular rhythm Heart sounds: S1 normal and S2 normal Peripheral pulses: pulses 2+ throughout GI Common normals: Normal to inspection, nondistended, normoactive bowel sounds present, soft to palpation, non-tender and no hepatosplenomegaly Palpation: soft and no hepatosplenomegaly Bladder/kidney exam: bladder normal to palpation Extremity Common normals: normal to inspection and no calf tenderness General: no clubbing, no cyanosis and no edema Left upper extremity: shoulder joint Left shoulder joint: ROM (Decreased d/t pain - improving) Neuro Common normals: oriented x3, CN's II-XII intact bilaterally, moves all extremities, no focal motor deficits and no sensory deficits noted Sensorium/orientation: awake and alert Psych Common normals: mental status grossly normal Progress Note: Objective Labs Labs: Short CBC 03/08/23 Range/Units 03:59 WBC 8.0 (4.0-11.0) 10^3/uL Hgb 10.5 L (14.0-18.0) g/dL Hct 34.7 L (42.0-54.0) % Plt Count 205 (150-450) 10^3/uL BMP 03/08/23 03:59 Sodium 137 Potassium 4.1 Chloride 103 Carbon Dioxide 28.1 BUN 15.0 Creatinine 1.89 H Glucose 176 H Calcium 8.5 Liver Function 03/08/23 Range/Units 03:59 Total Bilirubin 0.4 (0.2-1.0) mg/dL AST 24 (15-37) U/L ALT 28 (16-63) U/L Alkaline Phosphatase 130 H (46-116) U/L Albumin 2.3 L (3.4-5.0) g/dL Progress Note: A&P Assessment and Plan (1) Sepsis: Assessment and Plan: ACUTE * Resolved * Remains hemodynamically stable. * Sec to UTI. Qualifiers: Sepsis acute organ dysfunction status: with acute organ dysfunction Sepsis type: sepsis due to unspecified organism Severe sepsis acute organ dysfunction type: encephalopathy (2) Acute UTI: Assessment and Plan: ACUTE * UTI sec to Klebsiella Oxytoca. * Sensitive to levaquin. Continue PO w/ renal dosing * Day 11/12. Plan to continue at d/c to complete 10 day course. (3) Metabolic encephalopathy: Assessment and Plan: ACUTE * Resolved * Remains at baseline mental status. * MRI head negative for stroke (4) ROEL (acute kidney injury): Assessment and Plan: ACUTE * Resolved * Cr remains at baseline for several days. * D/C daily labs. (5) Lactic acid acidosis: Assessment and Plan: ACUTE * Resolved * due to sepsis/UTI (6) Suspected cerebrovascular accident (CVA): Assessment and Plan: ACUTE * Ruled out * MRI brain negative for stroke. * No clinical concern for CVA and neurological symptoms were likely 2/2 sepsis (7) Left arm pain: Assessment and Plan: ACUTE * 2/2 fall w/ rib trauma * Resolving * Encouraged full ROM attempts (8) Diabetes: Assessment and Plan: CHRONIC * SSI while in patient. * Resume home glimepiride, Januvia, Jardiance, metformin at d/c Qualifiers: Chronic kidney disease stage: stage 4 (severe) Diabetes mellitus complication detail: with chronic kidney disease Diabetes mellitus complication status: with kidney complications Diabetes mellitus type: type 2 (9) COPD (chronic obstructive pulmonary disease): Assessment and Plan: CHRONIC * Duonebs as needed (10) Hypertension: Assessment and Plan: CHRONIC * Continue Losartan (sub for home valsartan). * BP adequately controlled (11) CKD stage 4 due to type 2 diabetes mellitus: Assessment and Plan: CHRONIC * Resolved * Cr back to baseline. (12) Neuropathy: Assessment and Plan: CHRONIC * C/w home lyrica. (13) Dementia: Assessment and Plan: CHRONIC * Mild dementia at baseline. * Back to baseline mental status. * Monitor (14) Hyperlipidemia: Assessment and Plan: CHRONIC * C/w statin Plan Awaiting insurance auth for rehab placement
[2023-03-08 16:40] LABS: Glucometer 262 mg/dL (74-106)
[2023-03-08] MEDS: AMITRIPTYLINE HCL 50 MG TABLET 100 MG PO (21:00)
[2023-03-08] MEDS: NICOTINE 14 MG PATCH TD (21:02)
[2023-03-08 21:08] LABS: Glucometer 228 mg/dL (74-106)
[2023-03-09 02:00] VITALS: PULSE 82
[2023-03-09 03:54] VITALS: O2SAT 93
[2023-03-09 03:57] VITALS: PULSE 83
[2023-03-09] MEDS: ROPINIROLE HCL 1 MG TABLET PO (05:31)
[2023-03-09] MEDS: OMEPRAZOLE 40 MG CAPSULE.DR PO (05:31)
[2023-03-09] MEDS: HEPARIN SODIUM (PORCINE) 5,000 UNIT/ML VIAL 5000 UNIT SUBQ (05:31)
[2023-03-09] MEDS: PREGABALIN 100 MG CAPSULE 200 MG PO (05:31)
[2023-03-09] MEDS: OXYCODONE HCL 5 MG TABLET PO (05:35)
[2023-03-09 05:42] VITALS: BP 143/93; PULSE 81; RESP 16; TEMP 36.6; O2SAT 94
[2023-03-09 06:00] VITALS: PULSE 81
[2023-03-09 08:08] LABS: Glucometer 168 mg/dL (74-106)
--- NOTE | 2023-03-09 09:15 | PC.NURSE ---
0832- attempted to chart on pt as he is normal sinus rhythm with first degree block, unable to as another user is in chart. LEENA Cortes stated pt is being removed from Tele.
[2023-03-09] MEDS: INSULIN ASPART 300 UNIT/3 ML PEN SUBQ (09:37)
[2023-03-09] MEDS: TAMSULOSIN HCL 0.4 MG CAPSULE PO (09:40)
[2023-03-09] MEDS: METOPROLOL TARTRATE 50 MG TABLET PO (09:40)
[2023-03-09] MEDS: ATORVASTATIN CALCIUM 40 MG TABLET 80 MG PO (09:40)
[2023-03-09] MEDS: ASPIRIN 81 MG TABLET.DR PO (09:41)
[2023-03-09] MEDS: LEVOFLOXACIN 500 MG TABLET 250 MG PO (09:41)
[2023-03-09] MEDS: CLOPIDOGREL BISULFATE 75 MG TABLET PO (09:43)
[2023-03-09] MEDS: LOSARTAN POTASSIUM 50 MG TABLET 100 MG PO (09:43)
--- NOTE | 2023-03-09 09:57 | SWNOTE1 ---
SW received message from case management and doctor will discharge pt today. If we do not hear back from insurance he will be dc with home health. SW reached out to [facility]. Admissions, Pb, stated they expedited the precert to medical biller yesterday and once he is back in office he will reach back out to insurance. SW let him know that doctor will be discharging pt today.
[2023-03-09 09:59] VITALS: O2SAT 98
--- NOTE | 2023-03-09 09:59 | P.DS_ITS ---
Patient seen and examined. Chart reviewed, case discussed with Elle. D/w patient. He is working well with PT. He is more or less close to his baseline functional status. He is agreeable to go home. Still awaiting precet from insurance. Patient will be discharged home with home health. Exam Sitting comfortably. NAD CTA b/l, normal RR NT, ND, BS+2 AAOX 3, non focal exam. Sepsis sec to UTI UTI sec to klebsiella Will d/c on oral Levaquin DS: Providers Provider Date of admission: 03/03/23 18:30 Primary care physician: Non-Staff Physician, Admitting clinician: Shaikh Germaine Consults: 03/03/23 20:42 Occupational Therapy Eval and Treat Routine Reason for consultation: falls Physical Therapy Eval and Treat Routine Reason for consultation: falls Attending physician on discharge: Shaikh Germaine Discharging clinician: Elle Jack Anticipated date of discharge: 03/09/23 DS: Diagnosis Discharge Diagnosis (1) Sepsis: Qualifiers: Sepsis acute organ dysfunction status: with acute organ dysfunction Sepsis type: sepsis due to unspecified organism Severe sepsis acute organ dys function type: encephalopathy (2) Acute UTI: (3) Metabolic encephalopathy: (4) ROEL (acute kidney injury): (5) Lactic acid acidosis: (6) Suspected cerebrovascular accident (CVA): (7) Left arm pain: (8) Diabetes: Qualifiers: Chronic kidney disease stage: stage 4 (severe) Diabetes mellitus complication detail: with chronic kidney disease Diabetes mellitus complication status: with kidney complications Diabetes mellitus type: type 2 (9) COPD (chronic obstructive pulmonary disease): (10) Hypertension: (11) CKD stage 4 due to type 2 diabetes mellitus: (12) Neuropathy: (13) Dementia: (14) Hyperlipidemia: DS: Summary Hospital Course Hospital Course: Date/Time of Exam: 03/09/23 0840 The patient was admitted with sepsis with associated ROEL, metabolic encephalopathy, and lactic acidosis from a UTI (Klebsiella oxytoca). A CVA was within the differential as a suspected cause of his encephalopathy but was ruled out with CT and MRI of the brain. He was treated with IV fluids and IVPB Levaquin. Once urine cultures resulted and sensitivity to fluoroquinolones was confirmed along with patient clinical improvement, he was transitioned to renally dosed p.o. Levaquin. Blood cultures x 2 have remained neg x 48 hrs. All the patient's symptoms have resolved and his mentation and renal function have returned to baseline. The patient fell shortly before admission and was experiencing left arm and shoulder pain. X-rays of the left shoulder and elbow were negative for any acute fracture. Soft tissue injury is suspected and no other work-up is indicated. His pain has improved since admission. The patient is being discharged home with home health care services in stable condition. He should follow-up with his PCP within 1 to 2 weeks. A follow-up BMP should be considered to continue to monitor the patient's renal function. An indwelling Burt catheter is present per instruction of Dr. Silvestre, urologist. An outpatient TURP is planned within the next week and the patient is being discharged with a Burt catheter remaining in place pending further instruction by Dr. Silvestre. Status at Discharge Functional status at discharge: independent ambulation Overall status at discharge: patient is progressing back to baseline Time Spent with Patient Time attestation: Total time spent providing and/or coordinating discharge services: Exam Constitutional Vital Signs, click to edit/add: Last Vital Signs Temp 97.9 F 03/09/23 05:42 Pulse 81 03/09/23 06:00 Resp 16 03/09/23 05:42 BP 143/93 H 03/09/23 05:42 Pulse Ox 94 L 03/09/23 05:42 O2 Del Method Room Air 03/09/23 05:42 Common normals: no apparent distress, oriented x3 and alert General appearance: cooperative Orientation/consciousness: Yes awake [facility] Common normals: normocephalic and head/scalp atraumatic Head and scalp: normocephalic and atraumatic Eye Common normals: PERRL, EOMs intact bilaterally, conjunctivae normal and no scleral icterus Conjunctiva: conjunctiva(e) normal Pupil: PERRL Neck & C-Spine Common normals: no JVD Respiratory Common normals: normal respiratory effort, no use of accessory muscles and clear to auscultation bilaterally Effort & inspection: able to speak in complete sentences and symmetric chest movement Auscultation: clear to auscultation bilaterally Cardio Common normals: no JVD, regular rate, regular rhythm, S1 normal heart sound, S2 normal heart sound, no gallops, no clicks, no rub and peripheral pulses 2+ throughout Rate: regular rate Rhythm: regular rhythm Heart sounds: S1 normal, S2 normal and murmur (HSM 2/6) Peripheral pulses: pulses 2+ throughout GI Common normals: Normal to inspection, nondistended, normoactive bowel sounds present, soft to palpation and non-tender Palpation: soft Bladder/kidney exam: bladder normal to palpation Extremity Common normals: normal to inspection, full ROM, normal capillary refill and no pedal edema General: no clubbing and no cyanosis Neuro Common normals: oriented x3, CN's II-XII intact bilaterally, moves all extremities, no focal motor deficits and no sensory deficits noted Sensorium/orientation: awake and alert Speech: speech normal Psych Common normals: mental status grossly normal and activity/motor behavior normal Appearance: grossly normal DS: Data Data Completed and Pending Completed studies during hospitalization: Urine Culture Final ML Organism 1 Klebsiella oxytoca [place] Count >100,000 CFU/ml Kleb oxyto DILIA RX --------- --- * Amikacin <=2 S * Ampicillin >=32 R * Ampicillin/Sulbactam 4 S * Cefazolin <=4 S * Ceftazidime <=1 S * Ceftriaxone <=1 S * Ciprofloxacin <=0.25 S * Ertapenem <=0.5 S * Gentamicin <=1 S * Imipenem <=0.25 S * Levofloxacin <=0.12 S * Nitrofurantoin <=16 S * Tobramycin <=1 S * Trimethoprim/Sulfamethoxazole <=20 S * Piperacillin/Tazobactam 8 S Labs on day of discharge: Labs from last 24 hours 03/09/23 03/08/23 03/08/23 08:06 21:06 16:25 POC Glucose 168 H 228 H 262 H 03/08/23 11:28 POC Glucose 325 H Preliminary micro results at discharge 03/03/23 17:10 Blood Culture Result 1 - Preliminary Blood NO GROWTH AT 36-48 HOURS. FINAL TO FOLLOW. 03/03/23 17:19 - Preliminary Blood Imaging CT scan - head: Attestation: I have reviewed the pertinent imaging results. Radiologist's impression: IMPRESSION: 1. No depressed skull fracture or intracranial hemorrhage. 2. Mild old microvascular ischemic changes. Age-related cerebral volume loss. MRI - head: Attestation: I have reviewed the pertinent imaging results. Radiologist's impression: IMPRESSION: No acute ischemia. No acute intracranial process. CT - Cervical Spine: Attestation: I have reviewed the pertinent imaging results. Radiologist's impression: IMPRESSION: No acute cervical spine abnormalities. Carotid Doppler Study: Attestation: I have reviewed the pertinent imaging results. Radiologist's impression: IMPRESSION: 0-49% flow stenosis bilateral internal carotid arteries L Elbow x-ray: Attestation: I have reviewed the pertinent imaging results. Radiologist's impression: IMPRESSION: No acute cervical spine abnormalities. L Shoulder x-ray: Attestation: I have reviewed the pertinent imaging results. Radiologist's impression: FINDINGS: There is no acute fracture or dislocation. There is a structure just of the left glenohumeral and acromioclavicular joints. No calcific tendinitis. The soft tissue is unremarkable. Discharge Plan Discharge Disposition: Home Health Service Condition: Good Discharge Medications: New levofloxacin 500 mg Tablet 250 mg PO QD 4 Days Qty: 2 0RF Rx Instructions: Take medication until gone tramadol 50 mg tablet 50 mg PO Q6H PRN (Reason: pain) Qty: 20 0RF Continued aspirin 81 mg tablet,delayed release (DR/EC) 81 mg PO DAILY atorvastatin 80 mg tablet 80 mg PO DAILY clopidogrel 75 mg tablet 75 mg PO DAILY Trulicity 0.75 mg/0.5 mL pen injector 0.75 mg SUBCUT DAILY Jardiance 10 mg tablet 10 mg PO DAILY glimepiride 2 mg tablet 2 mg PO BID metformin 1,000 mg tablet 1,000 mg PO BID metoprolol tartrate 100 mg tablet 50 mg PO Q12H nitroglycerin 0.4 mg tablet, sublingual 0.4 mg sublingual Q5M PRN (Reason: chest pain) omeprazole 40 mg capsule,delayed release(DR/EC) 40 mg PO DAILY pregabalin 200 mg capsule 200 mg PO Q8H ropinirole 1 mg tablet 1 mg PO TID sildenafil 100 mg tablet 100 mg PO Q8H PRN (Reason: sexual activity) Januvia 100 mg tablet 100 mg PO DAILY Spiriva Respimat 2.5 mcg/actuation mist 2 puff INHALATION Q24H PRN (Reason: sob) valsartan-hydrochlorothiazide 160-12.5 mg tablet 1 tab PO DAILY tamsulosin [Flomax] 0.4 mg capsule 0.4 mg PO BID budesonide-formoterol [Symbicort] 160-4.5 mcg/actuation HFA aerosol inhaler 2 inh inhalation BID amitriptyline 100 mg tablet 100 mg PO BEDTIME Discontinued tramadol 50 mg tablet 50 mg PO Q6H PRN (Reason: pain) Activity: as per physical therapy and increase activity as tolerated Diet: advance to your usual diet Activity Restrictions/Additional Instructions: - PCP to consider BMP within 1-2 weeks to monitor ROEL/CKD3b - PO/OT per home health - Maintain burt catheter until instructed to remove per Dr Silvestre, Urologist - Home health RN to monitor - Follow up w/ PCP in 7-14 days - Follow up w/ Dr Silvestre as scheduled Forms: Portal Instructions
--- NOTE | 2023-03-09 10:10 | RESP.RT ---
Patient denies the need for a treatment right now. Will notify Nurse if anything changes and decides he wants one during the day.
--- NOTE | 2023-03-09 10:29 | SWNOTE1 ---
MILANA spoke with pt's on the phone. SW let her know that pt will be discharged today either with home health or if precert comes back then to [place]. MILANA did explain that pt has been going 100 feet with therapy and doing pretty well. Pt's voices understanding. Pt's expressed for the pt's own mental health it would be more beneficial for pt to return home with home health and she is aright with cancelling precert and taking him home. She is at work right now and will get him after work. She has the house keys anyway and he has no other way to get in. Pt has had HH in past and it was [facility]. She would like to use [facility] again.
--- NOTE | 2023-03-09 10:32 | SWNOTE1 ---
SW updated nursing.
--- NOTE | 2023-03-09 10:47 | SWNOTE1 ---
[facility] only takes [facility] medicare ADV plan. Pt has [facility] medicaid.
--- NOTE | 2023-03-09 10:48 | SWNOTE1 ---
MILANA sent referral to [address] as MILANA knows they take [facility].
--- NOTE | 2023-03-09 11:23 | CM.NOTE ---
Rounds made with Dr. Herron. Dr. Herron discussed with Mr. Feldman that he is able to go home with Home Health as he is doing well with P.T. and O.T. Mr. Feldman is agreeable to home with Home Health and transitioning to outpatient P.T./O.T. if needed after Home Health is completed. Plan for home with Home Health today.
--- NOTE | 2023-03-09 13:45 | SWNOTE1 ---
[facility] does not accept [facility] medicaid, [facility] does not accept [facility] medicaid, [facility] does not accept [facility] medicaid (if it was nursing only they could). SW to attempt other companies.
--- NOTE | 2023-03-09 13:51 | SWNOTE1 ---
[facility] does not take [facility] medicaid. Case management able to go on website and print companies, some of the places that are listed have already stated they do not take that insurance.
--- NOTE | 2023-03-09 13:56 | SWNOTE1 ---
[facility] does not have availability until late next week, not able to accept.
--- NOTE | 2023-03-09 14:13 | SWNOTE1 ---
[facility], they will start care next week. SW to let pt and know.
--- NOTE | 2023-03-09 14:58 | SWNOTE1 ---
SW spoke to to let her know HH company is [facility]. SW also asked pt's if she cares for burt, she stated she does. No need for nursing for HH. [facility] called back and they needed social security number and they can start care on 03/10/23.
--- NOTE | 2023-03-10 15:49 | CM.DCFOLLOWU ---
Person spoke with:patient's How are you feeling? alright, a little queasy How is your pain? no pain Did you understand your discharge instructions? yes Do you have any questions about your discharge instructions? no Were you given any prescriptions at discharge? yes Were you able to get your prescriptions filled? yes, scripts were no sent home with pt, but picked up today and got them filled Do you understand how to take your medications as ordered? yes Do you have any questions about your follow up appointment and do you plan to keep your follow up appointment? no questions and keeping all follow ups as scheduled on discharge paperwork Is there anything else that you would like to discuss? no Questions/Comments/Concerns/Other:
== END 2023-03-09 17:50 | disposition home health service (06) | DRG 720 ==
LOC: ER 18:03 → MS 18:34
PROVIDERS: Family Medicine; Admitting Provider Internal Medicine; Emergency Provider Emergency Medicine; Visit Provider Internal Medicine
DX: A41.9 Sepsis, unspecified organism (principal); N39.0 Urinary tract infection, site not specified; B96.1 Klebsiella pneumoniae [K. pneumoniae] as the cause of diseases classified elsewhere; R65.20 Severe sepsis without septic shock; G93.41 Metabolic encephalopathy; N17.9 Acute kidney failure, unspecified; I12.9 Hypertensive chronic kidney disease with stage 1 through stage 4 chronic kidney disease, or unspecified chronic kidney disease; N18.4 Chronic kidney disease, stage 4 (severe); E11.22 Type 2 diabetes mellitus with diabetic chronic kidney disease; E11.40 Type 2 diabetes mellitus with diabetic neuropathy, unspecified; E11.65 Type 2 diabetes mellitus with hyperglycemia; E11.51 Type 2 diabetes mellitus with diabetic peripheral angiopathy without gangrene; F03.90 Unspecified dementia, unspecified severity, without behavioral disturbance, psychotic disturbance, mood disturbance, and anxiety; E86.0 Dehydration; M79.602 Pain in left arm; E78.5 Hyperlipidemia, unspecified; I25.10 Atherosclerotic heart disease of native coronary artery without angina pectoris; N40.1 Benign prostatic hyperplasia with lower urinary tract symptoms; J44.9 Chronic obstructive pulmonary disease, unspecified; F17.210 Nicotine dependence, cigarettes, uncomplicated; Z16.11 Resistance to penicillins; H40.9 Unspecified glaucoma; M10.9 Gout, unspecified; Z91.81 History of falling; Z79.82 Long term (current) use of aspirin; Z79.85 Long-term (current) use of injectable non-insulin antidiabetic drugs; Z79.84 Long term (current) use of oral hypoglycemic drugs; Z79.899 Other long term (current) drug therapy; Z88.0 Allergy status to penicillin; Z83.3 Family history of diabetes mellitus; Z82.49 Family history of ischemic heart disease and other diseases of the circulatory system; Z95.5 Presence of coronary angioplasty implant and graft; Z95.828 Presence of other vascular implants and grafts
CPT/HCPCS: 36415; 51702; 51798; 70450; 70551; 71045; 72125; 73030; 73070; 80053; 80307; 80320; 81001; 82009; 82607; 82746; 82800; 82948; 83036; 83605; 83880; 84484; 85025; 85027; 87040; 87086; 87150; 87186; 93005; 93880; 94761; 96372; 96374; 96375; 96376; 97162; 97165; 97530; 97535; 99285

== ENCOUNTER 2023-03-26 18:28 | Emergency (ER) | payer OTHER, SELFPAY ==
[2023-03-26] VITALS (7 sets, daily range): BP systolic 118; BP diastolic 73; PULSE 78–89; RESP 15–21; TEMP 36.7; O2SAT 98–100; BMI 28.2
--- NOTE | 2023-03-26 18:53 | ECG_ITS ---
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
--- NOTE | 2023-03-26 18:55 | ED.MALEGU1 ---
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 Patient has an indwelling Garza catheter for the last two weeks, he was seen in this emergency department for strokelike symptoms and was found to have sepsis and urinary tract infection. Garza catheter was placed at that time and has remained in place for the last two weeks. No issues with drainage of urine from the Garza catheter into the leg bag. He has had no fevers or vomiting. He states he is eating and drinking well. He states over the last day associated with the dysuria, he has felt dizzy on standing. He has not had any chest pain, shortness of breath. He has not noted any blood in his urine. He is due to see his urologist in two weeks for urological surgery. states they were concerned that the patient is getting a urinary tract infection again as he had sepsis previously. Related Data Home Medications Medication Instructions Recorded Confirmed aspirin 81 mg tablet,delayed 81 mg PO DAILY 03/03/23 03/03/23 release atorvastatin 80 mg tablet 80 mg PO DAILY 03/03/23 03/03/23 clopidogrel 75 mg tablet 75 mg PO DAILY 03/03/23 03/03/23 dulaglutide 0.75 mg/0.5 mL 0.75 mg subcut DAILY 03/03/23 03/03/23 subcutaneous pen injector (Trulicity) empagliflozin 10 mg tablet 10 mg PO DAILY 03/03/23 03/03/23 (Jardiance) glimepiride 2 mg tablet 2 mg PO BID 03/03/23 03/03/23 metformin 1,000 mg tablet 1,000 mg PO BID 03/03/23 03/04/23 metoprolol tartrate 100 mg tablet 50 mg PO Q12H 03/03/23 03/04/23 nitroglycerin 0.4 mg sublingual 0.4 mg sublingual Q5M PRN chest 03/03/23 03/03/23 tablet pain omeprazole 40 mg capsule,delayed 40 mg PO DAILY 03/03/23 03/03/23 release pregabalin 200 mg capsule 200 mg PO Q8H 03/03/23 03/03/23 ropinirole 1 mg tablet 1 mg PO TID 03/03/23 03/04/23 sildenafil 100 mg tablet 100 mg PO Q8H PRN sexual activity 03/03/23 03/03/23 sitagliptin phosphate 100 mg 100 mg PO DAILY 03/03/23 03/03/23 tablet (Januvia) tamsulosin 0.4 mg capsule (Flomax) 0.4 mg PO BID 03/03/23 03/04/23 tiotropium bromide 2.5 2 puff inhalation Q24H PRN sob 03/03/23 03/03/23 mcg/actuation mist for inhalation (Spiriva Respimat) valsartan 160 1 tab PO DAILY 03/03/23 03/03/23 mg-hydrochlorothiazide 12.5 mg tablet amitriptyline 100 mg tablet 100 mg PO BEDTIME 03/04/23 03/04/23 budesonide-formoterol HFA 160 2 inh inhalation BID 03/04/23 03/04/23 mcg-4.5 mcg/actuation aerosol inhaler (Symbicort) Previous Rx's Medication Instructions Recorded levofloxacin 500 mg tablet 250 mg PO QD 4 days #2 tabs 03/08/23 tramadol 50 mg tablet 50 mg PO Q6H PRN pain #20 tabs 03/08/23 ciprofloxacin HCl 500 mg tablet 500 mg PO Q12H #14 tabs 03/26/23 hydrocodone 5 mg-acetaminophen 325 1 tab PO Q6H PRN pain #12 tabs 03/26/23 mg tablet ondansetron 4 mg disintegrating 4 mg PO Q6H PRN nausea and 03/26/23 tablet vomiting #12 tabs phenazopyridine 200 mg tablet 200 mg PO Q8H 2 days #6 tabs 03/26/23 (Pyridium) Allergies Allergy/AdvReac Type Severity Reaction Status Date / Time Penicillins Allergy Severe Swelling Verified 03/03/23 22:47 of Lip/Tongue/Throat Review of Systems ROS Constitutional Denies: fever or chills Cardiovascular Denies: chest pain Respiratory Denies: shortness of breath Gastrointestinal Denies: nausea or vomiting Genitourinary Reports: painful urination Musculoskeletal Denies: back pain Integumentary/Breast Denies: rash Endocrine Denies: excessive urination PFSH PFS Medical History (Updated 03/26/23 @ 19:47 by CARSON Blackman) Carpal tunnel syndrome, bilateral ?G56.03 - Carpal tunnel syndrome, bilateral upper limbs (ICD-10) Chronic kidney disease ?N18.9 - Chronic kidney disease, unspecified (ICD-10) CKD stage 4 due to type 2 diabetes mellitus ?E11.22 - Type 2 diabetes mellitus with diabetic chronic kidney disease (ICD-10) ?N18.4 - Chronic kidney disease, stage 4 (severe) (ICD-10) COPD (chronic obstructive pulmonary disease) ?J44.9 - Chronic obstructive pulmonary disease, unspecified (ICD-10) Dementia ?F03.90 - Unspecified dementia, unspecified severity, without behavioral disturbance, psychotic disturbance, mood disturbance, and anxiety (ICD-10) Diabetes ?E11.9 - Type 2 diabetes mellitus without complications (ICD-10) Femoral artery stenosis ?I70.209 - Unspecified atherosclerosis of [place] arteries of extremities, unspecified extremity (ICD-10) Glaucoma ?H40.9 - Unspecified glaucoma (ICD-10) Gout ?M10.9 - Gout, unspecified (ICD-10) Hyperlipidemia ?E78.5 - Hyperlipidemia, unspecified (ICD-10) Hypertension ?I10 - Essential (primary) hypertension (ICD-10) Neuropathy ?G62.9 - Polyneuropathy, unspecified (ICD-10) Polyp of prostate with urinary obstruction ?N40.1 - Benign prostatic hyperplasia with lower urinary tract symptoms (ICD-10) ?N13.8 - Other obstructive and reflux uropathy (ICD-10) Weakness ?R53.1 - Weakness (ICD-10) Surgical History (Updated 03/03/23 @ 18:45 by Darling Sharma RN) History of appendectomy ?Z90.49 - Acquired absence of other specified parts of digestive tract (ICD-10) History of heart artery stent ?Z95.5 - Presence of coronary angioplasty implant and graft (ICD-10) Family History (Updated 03/03/23 @ 18:46 by Darling Sharma RN) Mother Family history of CHF (congestive heart failure) Family history of diabetes mellitus Family history of hypertension Grandfather Family history of CHF (congestive heart failure) Family history of diabetes mellitus Family history of hypertension Family history of myocardial infarction Grandmother Family history of hypertension Social History Within the past year, how often did you have a drink containing alcohol: never Score interpretation: A score less than 4 is consistent with normal alcohol consumption. Smoking status: Current every day smoker Non-prescribed substance use: denies use Gender Identity: male Exam Narrative Exam Narrative: Gen.: Awake, alert, in no distress Head: Normocephalic, atraumatic ENT: Moist mucous membranes Respiratory: No respiratory distress, lungs clear bilaterally Cardio: Regular rate and rhythm Gastrointestinal: Abdomen is soft, nondistended and nontender to palpation : leg bag in place with yellow urine draining, no sediment or clots noted. No leakage noted Extremities: Moves extremities equally Psych: Normal mood and affect Neuro: No focal neuro deficit Skin: Warm, dry, intact Constitutional Vital Signs, click to edit/add: Last Vital Signs Temp 98.0 F 03/26/23 18:34 Pulse 79 03/26/23 19:50 Resp 15 03/26/23 19:50 BP 118/73 03/26/23 18:34 Pulse Ox 98 03/26/23 19:02 O2 Del Method Room Air 03/26/23 18:34 Course Vital Signs Vital signs: Vital Signs Temperature 98.0 F 03/26/23 18:34 Pulse Rate 89 03/26/23 18:34 Respiratory Rate 18 03/26/23 18:34 Blood Pressure 118/73 03/26/23 18:34 Pulse Oximetry 100 03/26/23 18:34 Oxygen Delivery Method Room Air 03/26/23 18:34 Temperature 98.0 F 03/26/23 18:34 Pulse Rate 79 03/26/23 19:50 Respiratory Rate 15 03/26/23 19:50 Blood Pressure 118/73 03/26/23 18:34 Pulse Oximetry 98 03/26/23 19:02 Oxygen Delivery Method Room Air 03/26/23 18:34 MDM - Male Genitourinary MDM Narrative Medical decision making narrative: patient treated with IV fluids, EKG and labs show no evidence of sepsis. Patient with no complaints of syncope, chest pain, shortness of breath, fevers or vomiting. He maintained stable vital signs in the Emergency Room with no fevers or tachycardia. He complained of pain in the genital area with passage of urine, he was treated with Pyridium and oral Percocet. He is found to have evidence of a urinary tract infection, labs are otherwise unremarkable with no leukocytosis, normal lactic acid and stable chronic kidney disease. Patient will be treated with oral ciprofloxacin, his previous urine culture was positive for Klebsiella and was Cipro susceptible. He was treated with Levaquin 250 mg daily for four days on discharge from the hospital two weeks ago for his urinary tract infection with sepsis. He is treated with 1st doses of medications in the Emergency Room, pain medication, nausea medication and Pyridium given for home with Cipro. Follow-up with urology and return to the Emergency Room if symptoms change or worsen. Medical Records Attestation: I reviewed the patient's medical records. Lab Data Attestation: I reviewed the patient's lab results. Labs: Lab Results 03/26/23 03/26/23 Range/Units 19:03 19:08 WBC 10.9 (4.0-11.0) 10^3/uL RBC 4.57 L (4.70-6.10) 10^6/uL Hgb 11.3 L (14.0-18.0) g/dL Hct 36.2 L (42.0-54.0) % MCV 79.2 L (80.0-94.0) fL MCH 24.7 L (25.9-34.0) pg MCHC 31.2 (29.9-35.2) g/dL RDW 17.3 H (11.0-15.0) % Plt Count 212 (150-450) 10^3/uL MPV 10.9 (9.5-13.5) fL Neut % (Auto) 64.2 (43.0-75.0) % Lymph % (Auto) 22.7 (20.5-60.0) % [place] % (Auto) 7.9 (1.7-12.0) % Eos % (Auto) 3.8 (0.9-7.0) % Baso % (Auto) 1.0 (0.2-2.0) % Neut # (Auto) 7.0 H (1.4-6.5) 10^3/uL Lymph # (Auto) 2.5 (1.2-3.8) 10^3/uL [place] # (Auto) 0.9 H (0.3-0.8) 10^3/uL Eos # (Auto) 0.4 (0.0-0.7) 10^3/uL Baso # (Auto) 0.1 (0.0-0.1) 10^3/uL Abs Immat Gran (auto) 0.04 H (0.00-0.03) 10^3/uL Imm/Tot Granulo (auto) 0.4 (0.0-0.5) % Sodium 136 (136-145) mmol/L Potassium 4.1 (3.5-5.1) mmol/L Chloride 100 (98-107) mmol/L Carbon Dioxide 28.1 (21.0-32.0) mmol/L Anion Gap 12.0 BUN 23.0 H (7.0-18.0) mg/dL Creatinine 2.03 H (0.70-1.30) mg/dL Est GFR ( Amer) 41 L (>=60) Est GFR (Non-Af Amer) 34 L (>=60) BUN/Creatinine Ratio 11.3 Glucose 118 H (74-106) mg/dL Lactate 1.7 (0.4-2.0) mmol/L Calcium 8.8 (8.5-10.1) mg/dL Total Bilirubin 0.3 (0.2-1.0) mg/dL AST 10 L (15-37) U/L ALT <6 L (16-63) U/L Alkaline Phosphatase 98 (46-116) U/L Total Protein 7.4 (6.4-8.2) g/dL Albumin 3.3 L (3.4-5.0) g/dL Globulin 4.1 g/dL Albumin/Globulin Ratio 0.8 Urine Color Lt. yellow (YELLOW) Urine Clarity Clear (CLEAR) Urine pH 5.5 (5.0-9.0) Ur Specific [place] <=1.005 A (1.005-1.025) Urine Protein Negative (NEG/TRACE) mg/dL Urine Glucose (UA) >=1000 A (NEGATIVE) mg/dL Urine Ketones Negative (NEGATIVE) mg/dL Urine Occult Blood Moderate A (NEGATIVE) Urine Nitrite Negative (NEGATIVE) Urine Bilirubin Negative (NEGATIVE) Urine Urobilinogen 0.2 (0.2-1.0) EU/dL Ur Leukocyte Esterase Moderate A (NEGATIVE) Urine RBC 2-5 A (0-2) #/HPF Urine WBC 20-50 A (NONE SEEN) #/HPF Ur Squamous Epith Cells Few A (NONE/RARE) #/LPF Urine Crystals None seen (None Seen) #/HPF Urine Bacteria Small A (NONE SEEN) #/HPF Urine Casts None seen (NONE SEEN) #/LPF Urine Mucus None seen (NONE SEEN) Urine Yeast Seen A (NONE SEEN) Ur Culture Indicated? Yes ECG Data Attestation: I personally reviewed and interpreted this ECG as follows: (normal sinus rhythm at a rate of eighty-three with occasional PVC, first-degree AV block. No acute ST elevation. EKG reviewed by attending physician) ECG interpretation date: 03/26/23 ECG interpretation time: 19:21 Discharge Plan Discharge Chief Complaint: Urogenital-Male Clinical Impression: Acute UTI Patient Disposition: Home, Self-Care Time of Disposition Decision: 19:47 Condition: Good Prescriptions / Home Meds: New hydrocodone-acetaminophen 5-325 mg tablet 1 tab PO Q6H PRN (Reason: pain) Qty: 12 0RF Rx Instructions: DX R30.0 ciprofloxacin HCl 500 mg tablet 500 mg PO Q12H Qty: 14 0RF phenazopyridine [Pyridium] 200 mg tablet 200 mg PO Q8H 2 Days Qty: 6 0RF ondansetron 4 mg tablet,disintegrating 4 mg PO Q6H PRN (Reason: nausea and vomiting) Qty: 12 0RF No Action aspirin 81 mg tablet,delayed release (DR/EC) 81 mg PO DAILY atorvastatin 80 mg tablet 80 mg PO DAILY clopidogrel 75 mg tablet 75 mg PO DAILY Trulicity 0.75 mg/0.5 mL pen injector 0.75 mg SUBCUT DAILY Jardiance 10 mg tablet 10 mg PO DAILY glimepiride 2 mg tablet 2 mg PO BID metformin 1,000 mg tablet 1,000 mg PO BID metoprolol tartrate 100 mg tablet 50 mg PO Q12H nitroglycerin 0.4 mg tablet, sublingual 0.4 mg sublingual Q5M PRN (Reason: chest pain) omeprazole 40 mg capsule,delayed release(DR/EC) 40 mg PO DAILY pregabalin 200 mg capsule 200 mg PO Q8H ropinirole 1 mg tablet 1 mg PO TID sildenafil 100 mg tablet 100 mg PO Q8H PRN (Reason: sexual activity) Januvia 100 mg tablet 100 mg PO DAILY Spiriva Respimat 2.5 mcg/actuation mist 2 puff INHALATION Q24H PRN (Reason: sob) valsartan-hydrochlorothiazide 160-12.5 mg tablet 1 tab PO DAILY tamsulosin [Flomax] 0.4 mg capsule 0.4 mg PO BID budesonide-formoterol [Symbicort] 160-4.5 mcg/actuation HFA aerosol inhaler 2 inh inhalation BID amitriptyline 100 mg tablet 100 mg PO BEDTIME levofloxacin 500 mg Tablet 250 mg PO QD 4 Days Qty: 2 0RF Rx Instructions: Take medication until gone tramadol 50 mg tablet 50 mg PO Q6H PRN (Reason: pain) Qty: 20 0RF Stand Alone Forms: Portal Instructions Referrals: Jenaro Valadez DO [Primary Care Provider] - 1 week Discharge Date/Time: 03/26/23 20:06
[2023-03-26] MEDS: PHENAZOPYRIDINE 100 MG TABLET 200 MG PO (19:13)
[2023-03-26] MEDS: 0.9 % SODIUM CHLORIDE 1,000 ML 999 ML IV (19:13)
[2023-03-26 19:16] LABS: Basophils Absolute Auto 0.1 10^3/uL (0.0-0.1); Eosinophils Absolute Auto 0.4 10^3/uL (0.0-0.7); Eosinophils Percent Auto 3.8 % (0.9-7.0); Hematocrit 36.2 % (42.0-54.0); Hemoglobin 11.3 g/dL (14.0-18.0); Immature Granulocytes Abs Auto 0.04 10^3/uL (0.00-0.03); Immature Granulocytes Pct Auto 0.4 % (0.0-0.5); Lymphocytes Absolute Auto 2.5 10^3/uL (1.2-3.8); Lymphocytes Percent Auto 22.7 % (20.5-60.0); Mean Corpuscular HGB Conc 31.2 g/dL (29.9-35.2); Mean Corpuscular Hemoglobin 24.7 pg (25.9-34.0); Mean Corpuscular Volume 79.2 fL (80.0-94.0); Mean Platelet Volume 10.9 fL (9.5-13.5); Monocytes Absolute Auto 0.9 10^3/uL (0.3-0.8); Monocytes Percent Auto 7.9 % (1.7-12.0); Neutrophils Percent Auto 64.2 % (43.0-75.0); Platelet Count 212 10^3/uL (150-450); Red Blood Count 4.57 10^6/uL (4.70-6.10); Red Cell Distribution Width 17.3 % (11.0-15.0); White Blood Count 10.9 10^3/uL (4.0-11.0)
[2023-03-26 19:27] LABS: Bilirubin Urine NEGATIVE (NEGATIVE); Blood Urine MODERATE (NEGATIVE); Clarity Urine CLEAR (CLEAR); Color Urine LT. YELLOW (YELLOW); Glucose Urine UA >=1000 mg/dL (NEGATIVE); Ketones Urine NEGATIVE (NEGATIVE); Leukocyte Esterase Urine MODERATE (NEGATIVE); Nitrite Urine NEGATIVE (NEGATIVE); Protein Urine NEGATIVE (NEG/TRACE); Specific Gravity Urine <=1.005 (1.005-1.025); Urobilinogen Urine 0.2 EU/dL (0.2-1.0); pH Urine 5.5 (5.0-9.0)
[2023-03-26 19:30] LABS: Urine Microscopic Indicated YES
[2023-03-26 19:31] LABS: Bacteria Urine SMALL #/HPF (NONE SEEN); Cast Seen? NONE SEEN #/LPF (NONE SEEN); Crystals Seen? None Seen #/HPF (None Seen); Mucus Urine NONE SEEN (NONE SEEN); Squamous Epithelial Cell Urine FEW #/LPF (NONE/RARE); WBC Urine 20-50 #/HPF (NONE SEEN)
[2023-03-26 19:32] LABS: Urine Culture Indicated YES
[2023-03-26 19:33] LABS: Alanine Aminotransferase <6 U/L (16-63); Albumin Globulin Ratio 0.8; Albumin Level 3.3 g/dL (3.4-5.0); Alkaline Phosphatase 98 U/L (46-116); Aspartate Amino Transferase 10 U/L (15-37); BUN Creatinine Ratio 11.3; Bilirubin Total 0.3 mg/dL (0.2-1.0); Calcium 8.8 mg/dL (8.5-10.1); Carbon Dioxide 28.1 mmol/L (21.0-32.0); Chloride 100 mmol/L (98-107); Estimated GFR (African America 41 (>=60); Estimated GFR (Non-African Ame 34 (>=60); Globulin 4.1 g/dL; Glucose 118 mg/dL (74-106); Potassium 4.1 mmol/L (3.5-5.1); Sodium 136 mmol/L (136-145); Total Protein 7.4 g/dL (6.4-8.2)
[2023-03-26 19:38] LABS: Lactate/Lactic Acid 1.7 mmol/L (0.4-2.0)
[2023-03-26] MEDS: CIPROFLOXACIN HCL 500 MG TABLET PO (19:53)
[2023-03-26] MEDS: OXYCODONE HCL/ACETAMINOPHEN 5MG/325MG 1 TAB PO (19:53)
== END 2023-03-26 20:06 | disposition home or self-care (01) ==
PROVIDERS: Physician Assistant; Emergency Provider Emergency Medicine; PCP Family Medicine
DX: N39.0 Urinary tract infection, site not specified (principal); E11.22 Type 2 diabetes mellitus with diabetic chronic kidney disease; J44.9 Chronic obstructive pulmonary disease, unspecified; F03.90 Unspecified dementia, unspecified severity, without behavioral disturbance, psychotic disturbance, mood disturbance, and anxiety; I70.209 Unspecified atherosclerosis of native arteries of extremities, unspecified extremity; H40.9 Unspecified glaucoma; M10.9 Gout, unspecified; E78.5 Hyperlipidemia, unspecified; I12.9 Hypertensive chronic kidney disease with stage 1 through stage 4 chronic kidney disease, or unspecified chronic kidney disease; N40.1 Benign prostatic hyperplasia with lower urinary tract symptoms; N13.8 Other obstructive and reflux uropathy; Z90.49 Acquired absence of other specified parts of digestive tract; Z95.5 Presence of coronary angioplasty implant and graft; E11.42 Type 2 diabetes mellitus with diabetic polyneuropathy; F17.210 Nicotine dependence, cigarettes, uncomplicated; I44.0 Atrioventricular block, first degree; Z96.0 Presence of urogenital implants; Z79.82 Long term (current) use of aspirin; Z79.85 Long-term (current) use of injectable non-insulin antidiabetic drugs; Z79.84 Long term (current) use of oral hypoglycemic drugs; Z79.899 Other long term (current) drug therapy
CPT/HCPCS: 36415; 80053; 81001; 83605; 85025; 87086; 87150; 87186; 93005; 99285

== ENCOUNTER 2023-03-30 12:20 | Outpatient (OUT) | payer OTHER, SELFPAY ==
--- NOTE | 2023-03-30 12:30 | XR_ITS ---
The [address] [address] Patient Name: MYRA FELIPE MRN: [id number] date: 1965 Sex: M Assigned Patient Location: [facility] Current Patient Location: Accession/Order Number: [id number] Exam Date: 03/30/2023 13:00 Report Date: 03/31/2023 09:14 At the request of: RIGO ROWE Procedure: XR chest 2V EXAM: XR chest 2V HISTORY: Preop exam COMPARISON: None. TECHNIQUE: PA and lateral views of the chest. FINDINGS: The cardiomediastinal silhouette is normal. No focal consolidation is identified. There is no pneumothorax. No pleural effusion is noted. The osseous structures are intact. XR/XR chest 2V IMPRESSION: No acute cardiopulmonary process. Electronically authenticated by: MAGDA BUTCHER Date: 03/31/2023 09:14
[2023-03-30 13:28] LABS: INR 1.05; Partial Thromboplastin Time 27.2 sec (22.3-36.2); Prothrombin Time 11.1 sec (9.0-11.6)
== END 2023-03-30 12:21 | disposition home or self-care (01) ==
LOC: PST 12:20
PROVIDERS: PCP Family Medicine; Visit Provider Urology
DX: Z01.812 Encounter for preprocedural laboratory examination (principal); N40.1 Benign prostatic hyperplasia with lower urinary tract symptoms; M19.90 Unspecified osteoarthritis, unspecified site; E78.5 Hyperlipidemia, unspecified; G25.81 Restless legs syndrome; F17.210 Nicotine dependence, cigarettes, uncomplicated; K21.9 Gastro-esophageal reflux disease without esophagitis; I10 Essential (primary) hypertension; E11.9 Type 2 diabetes mellitus without complications; Z79.01 Long term (current) use of anticoagulants; J44.9 Chronic obstructive pulmonary disease, unspecified; I25.10 Atherosclerotic heart disease of native coronary artery without angina pectoris; I25.2 Old myocardial infarction
CPT/HCPCS: 71046; 80048; 85610; 85730

== ENCOUNTER 2023-04-13 11:10 | Day surgery (SDC) | payer OTHER, SELFPAY ==
[2023-03-30 12:59] VITALS: BP 106/69; PULSE 96; RESP 20; TEMP 36.3; O2SAT 96; BMI 28.2
[2023-04-13] VITALS (19 sets, daily range): BP systolic 101–148; BP diastolic 55–92; PULSE 74–95; RESP 9–21; TEMP 36–36.9; O2SAT 92–100; BMI 28.2
[2023-04-13] MEDS: LEVOFLOXACIN IN DEXTROSE 5 % 500 MG/100 ML PIGGYBACK 100 MG IV (11:56)
[2023-04-13] MEDS: LACTATED RINGER'S SOLUTION 1,000 ML 50 ML IV (11:56)
[2023-04-13 11:59] LABS: Glucometer 184 mg/dL (74-106)
--- NOTE | 2023-04-13 15:21 | PM.URSON ---
Urology Surgery Operative Note Operative Note Procedure Date: 04/13/23 Time Out Performed: yes Pre-op Diagnosis: benign prostatic hypertrophy with L UTS refractory to medications/urinary retention Post-op Diagnosis: same as pre-op Procedures performed: #1. Cystoscopy. #2. Transurethral resection of the prostate. Anesthesia: General-LMA Primary Surgeon: Yeyo Silvestre Complications: non- Estimated blood loss (mL): 20 Findings: short prostate. High median bar. Obstructing lateral lobes. High-grade bladder damage. Specimens: prostate chips. Drains: 22 Jordanian three-way coud? Garza catheter in the bladder to CBI Indications for Procedures: this gentleman has benign prostatic hypertrophy with L UTS and saleem urinary retention. Endoscopically he is obstructed in a bilobar fashion with a high median bar. Urodynamically he has modeerate pressure is and incomplete emptying. He has failed voiding trials. He is strongly desirous for transurethral resection of the prostate to attempt to be able to void again. He understands that one of the risks is that he may not be able to spontaneously urinate after the procedure is done. All of the risks were explained to him. Some of them include bleeding, infection, anesthesia, and urinary incontinence both temporary and permanent, retrograde ejaculation, erectile dysfunction and the possibility of persistent inability to void spontaneously to name a few. Detailed description of Procedure: The patient was brought to the operating room and placed on the operating room table in the supine position. SCDs were placed on the lower extremities and turned on and functioning during the entire case. Timeout was done by all parties in the room. We all agreed upon the patient's identification and the planned procedures for this patient. Genn. anesthesia was then administered. The patient was then repositioned into the modified dorsal lithotomy position. All pressure points were satisfactorily padded. Genitalia were sterilely prepped and draped in usual fashion.I started by passing a 26 Jordanian Olympus resectoscope with the standard bipolar loop electrode per urethra and into the bladder. The ureteral orifices were marked with the loop electrode. I brought the scope to the elevated median bar and resected this down to the bladder neck level. I then resected posteriorly from the bladder neck to the veru levell. The left lateral lobe, right lateral lobe and the anterior tissue were then resected similarly. The bladder neck was opened up at the 5 and 7:00 positions. I brought the scope back to the apex and opened this up. The resection bed was fully coagulated. The [facility] evacuator was used to get all the prostate chips out of the bladder and these were sent for permanent sections. Upon completion with the scope at the apex the prostatic urethra and bladder neck were now wide open. There was no bleeding. There were no chips in the bladder. The scope was then removed. I then placed a 22 Jordanian three-way coud? Garza in the bladder. 30 mL of fluid was placed in the balloon. It was taped to traction and CBI was started. It irrigated to a clear color. He was then transferred to [facility] bed and wheeled to PACU in stable condition.
[2023-04-13] MEDS: SOLIFENACIN SUCCINATE 10 MG TABLET PO (16:35)
[2023-04-13] MEDS: 0.9 % SODIUM CHLORIDE 1,000 ML 80 ML IV (16:35)
[2023-04-13] MEDS: SODIUM CHLORIDE IRRIG SOLUTION 3,000 ML 3000 ML IRR ×5 (16:36→22:54)
[2023-04-13] MEDS: HYDROCODONE/ACET 5-325 MG TABLET 1 TAB PO ×2 (16:57→21:48)
[2023-04-13] MEDS: GLIMEPIRIDE 2 MG TABLET PO (16:58)
--- NOTE | 2023-04-13 20:37 | RESP.RT ---
Pt refused N interchange for Home med Symbicort. Pt stated he will have family bring in Symbicort from home if he has to stay another night. No respiratory distress noted.
[2023-04-13] MEDS: AMITRIPTYLINE HCL 50 MG TABLET 100 MG PO (21:46)
[2023-04-13] MEDS: METFORMIN HCL 500 MG TABLET 1000 MG PO (21:46)
[2023-04-13] MEDS: TAMSULOSIN HCL 0.4 MG CAPSULE PO (21:46)
[2023-04-13] MEDS: METOPROLOL TARTRATE 50 MG TABLET PO (21:46)
[2023-04-13] MEDS: ROPINIROLE HCL 1 MG TABLET PO (21:46)
[2023-04-13] MEDS: PREGABALIN 100 MG CAPSULE 200 MG PO (21:46)
[2023-04-14] VITALS: BP 132/74; PULSE 100; RESP 18; TEMP 36.8; O2SAT 93
[2023-04-14] MEDS: SODIUM CHLORIDE IRRIG SOLUTION 3,000 ML 3000 ML IRR ×5 (00:20→04:42)
--- NOTE | 2023-04-14 01:05 | PC.NURSE ---
watermelon, no clots
[2023-04-14] MEDS: HYDROCODONE/ACET 5-325 MG TABLET 1 TAB PO (03:13)
[2023-04-14 04:00] VITALS: BP 110/67; PULSE 98; RESP 16; TEMP 36.9; O2SAT 97
[2023-04-14 04:31] VITALS: O2SAT 96
[2023-04-14] MEDS: 0.9 % SODIUM CHLORIDE 1,000 ML 80 ML IV (04:36)
[2023-04-14 05:14] VITALS: BP 110/67; PULSE 98; RESP 16; TEMP 36.9; O2SAT 98
[2023-04-14] MEDS: ROPINIROLE HCL 1 MG TABLET PO (06:09)
[2023-04-14] MEDS: OMEPRAZOLE 40 MG CAPSULE.DR PO (06:09)
[2023-04-14] MEDS: PREGABALIN 100 MG CAPSULE 200 MG PO (06:09)
--- NOTE | 2023-04-14 06:50 | PC.NURSE ---
0500 traction was released and CBI weaned 0600 CBI finished, and leg bag placed. patient was up and walking the halls. He is now sitting up in the chair with the call light in reach. denies pain and needs at this time
--- NOTE | 2023-04-14 09:25 | CM.NOTE ---
Spoke with pt, no discharge needs identified.
== END 2023-04-14 09:37 | disposition home or self-care (01) ==
LOC: SURGOUT 15:12 → MS 16:09
PROVIDERS: Visit Provider Urology
PROC: (CPT 914; principal; 2023-04-13 12:20)
DX: N40.1 Benign prostatic hyperplasia with lower urinary tract symptoms (principal); M19.90 Unspecified osteoarthritis, unspecified site; E78.5 Hyperlipidemia, unspecified; G25.81 Restless legs syndrome; F17.210 Nicotine dependence, cigarettes, uncomplicated; K21.9 Gastro-esophageal reflux disease without esophagitis; Z79.01 Long term (current) use of anticoagulants; J44.9 Chronic obstructive pulmonary disease, unspecified; I25.10 Atherosclerotic heart disease of native coronary artery without angina pectoris; I25.2 Old myocardial infarction; M79.7 Fibromyalgia; Z95.5 Presence of coronary angioplasty implant and graft; Z79.84 Long term (current) use of oral hypoglycemic drugs; Z79.899 Other long term (current) drug therapy; Z79.82 Long term (current) use of aspirin; I12.9 Hypertensive chronic kidney disease with stage 1 through stage 4 chronic kidney disease, or unspecified chronic kidney disease; E11.22 Type 2 diabetes mellitus with diabetic chronic kidney disease; N18.4 Chronic kidney disease, stage 4 (severe); F03.90 Unspecified dementia, unspecified severity, without behavioral disturbance, psychotic disturbance, mood disturbance, and anxiety; E11.42 Type 2 diabetes mellitus with diabetic polyneuropathy; N13.8 Other obstructive and reflux uropathy; M10.9 Gout, unspecified; Z87.440 Personal history of urinary (tract) infections; R33.8 Other retention of urine
CPT/HCPCS: 52601; 36415; 82948; 88305; J2704

== ENCOUNTER 2023-08-03 18:37 | Inpatient (IN) | payer OTHER, SELFPAY ==
[2023-08-03 18:44] VITALS: BP 125/84; PULSE 110; RESP 24; TEMP 36.6; O2SAT 99; BMI 28.1
--- NOTE | 2023-08-03 18:53 | XR_ITS ---
The [address] [address] Patient Name: MYRA FELIPE MRN: [id number] date: 1965 Sex: M Assigned Patient Location: ER Current Patient Location: ER Accession/Order Number: [id number] Exam Date: 08/03/2023 19:40 Report Date: 08/03/2023 20:31 At the request of: LUISITO LIANG Procedure: XR foot RT min 3V EXAM: XR foot RT min 3V HISTORY: puncture wound/foreign body COMPARISON: None. TECHNIQUE: 3 views right foot FINDINGS: There is a marker placed at the plantar aspect of the foot overlying the first and second metatarsal webspace. No radiographically dense foreign body is seen at this location otherwise. No acute fracture or aggressive osseous abnormality. Joint alignment is preserved. Plantar fascia and Achilles tendon enthesophytes are noted. XR/XR foot RT min 3V IMPRESSION: No radiographically dense foreign body is noted in the region of pain marker. Electronically authenticated by: AYAAN GAMINO Date: 08/03/2023 20:31
--- NOTE | 2023-08-03 18:54 | PC.NURSE ---
small puncture wound observed, no draiange at this time. side of foot is red and warm to touch.
--- NOTE | 2023-08-03 18:59 | ED.GENADUL1 ---
HPI - General Adult General Chief complaint: Skin/Abscess/Foreign Body Stated complaint: Laceration/Puncture Wound Time Seen by Provider: 08/03/23 18:47 Source: patient Mode of arrival: Wheelchair History of Present Illness HPI narrative: Patient is a 58-year-old male with a history of diabetes, coronary artery disease on aspirin and Plavix who presents to the ER for increasing pain, redness and swelling to the right medial foot. Patient states he must have stepped on something in the last week, he states for the last week he has had worsening symptoms and thinks he may have stepped on something in their home, they are currently doing a remodel. There has been no drainage. No fevers or vomiting. Related Data Home Medications Medication Instructions Recorded Confirmed aspirin 81 mg tablet,delayed 81 mg PO DAILY 03/03/23 08/03/23 release atorvastatin 80 mg tablet 80 mg PO DAILY 03/03/23 08/03/23 clopidogrel 75 mg tablet 75 mg PO DAILY 03/03/23 08/03/23 empagliflozin 10 mg tablet 10 mg PO DAILY 03/03/23 08/03/23 (Jardiance) glimepiride 2 mg tablet 2 mg PO BID 03/03/23 08/03/23 metformin 1,000 mg tablet 1,000 mg PO BID 03/03/23 08/03/23 metoprolol tartrate 100 mg tablet 50 mg PO Q12H 03/03/23 08/03/23 nitroglycerin 0.4 mg sublingual 0.4 mg sublingual Q5M PRN chest 03/03/23 08/03/23 tablet pain omeprazole 40 mg capsule,delayed 40 mg PO DAILY 03/03/23 08/03/23 release pregabalin 200 mg capsule 200 mg PO TID 03/03/23 08/03/23 sitagliptin phosphate 100 mg 100 mg PO DAILY 03/03/23 08/03/23 tablet (Januvia) tamsulosin 0.4 mg capsule (Flomax) 0.4 mg PO BID 03/03/23 08/03/23 valsartan 160 1 tab PO DAILY 03/03/23 08/03/23 mg-hydrochlorothiazide 12.5 mg tablet amitriptyline 100 mg tablet 100 mg PO BEDTIME 03/04/23 08/03/23 albuterol sulfate 90 mcg/actuation 2 inh inhalation Q4H PRN shortness 03/30/23 08/03/23 aerosol inhaler (ProAir HFA) of breath or wheezing dulaglutide 1.5 mg/0.5 mL 1.5 mg subcut QWEEK 08/03/23 08/03/23 subcutaneous pen injector (Trulicity) fremanezumab-vfrm 225 mg/1.5 mL 225 mg subcut .QMonth 08/03/23 08/03/23 subcutaneous auto-injector (Ajovy) furosemide 40 mg tablet 40 mg PO DAILY 08/03/23 08/03/23 isosorbide mononitrate 30 mg 30 mg PO DAILY 08/03/23 08/03/23 tablet,extended release 24 hr rimegepant 75 mg disintegrating 75 mg PO DAILY 08/03/23 08/03/23 tablet (Nurtec ODT) Allergies Allergy/AdvReac Type Severity Reaction Status Date / Time Penicillins Allergy Severe Swelling Verified 03/03/23 22:47 of Lip/Tongue/Throat bee venom protein (honey bee) Allergy Swelling Verified 03/30/23 12:43 of Lip/Tongue/Throat latex Allergy Rash Verified 03/30/23 12:42 Review of Systems ROS Constitutional Denies: fever or chills Eyes Denies: change in vision Ears, nose, mouth, and throat Denies: throat pain or nasal congestion Cardiovascular Denies: chest pain Respiratory Denies: shortness of breath or cough Gastrointestinal Denies: nausea or vomiting Musculoskeletal Reports: extremity pain and extremity swelling; Denies: back pain or neck pain Integumentary/Breast Reports: redness, skin pain, skin tenderness and skin swelling; Denies: rash Endocrine Denies: excessive urination Hematologic/Lymphatic Denies: easy bruising or easy bleeding [facility] Medical History (Updated 08/03/23 @ 20:35 by CARSON Blackman) Carpal tunnel syndrome ?G56.00 - Carpal tunnel syndrome, unspecified upper limb (ICD-10) Back pain ?M54.9 - Dorsalgia, unspecified (ICD-10) Arthritis ?M19.90 - Unspecified osteoarthritis, unspecified site (ICD-10) Pneumonia ?J18.9 - Pneumonia, unspecified organism (ICD-10) Restless leg ?G25.81 - Restless legs syndrome (ICD-10) Urinary tract infection ?N39.0 - Urinary tract infection, site not specified (ICD-10) GERD (gastroesophageal reflux disease) ?K21.9 - Gastro-esophageal reflux disease without esophagitis (ICD-10) High cholesterol ?E78.00 - Pure hypercholesterolemia, unspecified (ICD-10) Myocardial infarction ?I21.9 - Acute myocardial infarction, unspecified (ICD-10) Coronary artery disease ?I25.10 - Atherosclerotic heart disease of [place] coronary artery without angina pectoris (ICD-10) BPH with obstruction/lower urinary tract symptoms ?N40.1 - Benign prostatic hyperplasia with lower urinary tract symptoms (ICD-10) ?N13.8 - Other obstructive and reflux uropathy (ICD-10) Dementia ?F03.90 - Unspecified dementia, unspecified severity, without behavioral disturbance, psychotic disturbance, mood disturbance, and anxiety (ICD-10) CKD stage 4 due to type 2 diabetes mellitus ?E11.22 - Type 2 diabetes mellitus with diabetic chronic kidney disease (ICD-10) ?N18.4 - Chronic kidney disease, stage 4 (severe) (ICD-10) Hyperlipidemia ?E78.5 - Hyperlipidemia, unspecified (ICD-10) Polyp of prostate with urinary obstruction ?N40.1 - Benign prostatic hyperplasia with lower urinary tract symptoms (ICD-10) ?N13.8 - Other obstructive and reflux uropathy (ICD-10) Femoral artery stenosis ?I70.209 - Unspecified atherosclerosis of [place] arteries of extremities, unspecified extremity (ICD-10) Glaucoma ?H40.9 - Unspecified glaucoma (ICD-10) Carpal tunnel syndrome, bilateral ?G56.03 - Carpal tunnel syndrome, bilateral upper limbs (ICD-10) Gout ?M10.9 - Gout, unspecified (ICD-10) COPD (chronic obstructive pulmonary disease) ?J44.9 - Chronic obstructive pulmonary disease, unspecified (ICD-10) Neuropathy ?G62.9 - Polyneuropathy, unspecified (ICD-10) Chronic kidney disease ?N18.9 - Chronic kidney disease, unspecified (ICD-10) Hypertension ?I10 - Essential (primary) hypertension (ICD-10) Diabetes ?E11.9 - Type 2 diabetes mellitus without complications (ICD-10) Weakness ?R53.1 - Weakness (ICD-10) Surgical History (Updated 03/30/23 @ 12:53 by Shana George NP) History of heart artery stent ?Z95.5 - Presence of coronary angioplasty implant and graft (ICD-10) History of spinal surgery ?Z98.890 - Other specified postprocedural states (ICD-10) History of colonoscopy ?Z98.890 - Other specified postprocedural states (ICD-10) History of carpal tunnel release ?Z98.890 - Other specified postprocedural states (ICD-10) History of cataract extraction ?Z98.49 - Cataract extraction status, unspecified eye (ICD-10) History of appendectomy ?Z90.49 - Acquired absence of other specified parts of digestive tract (ICD-10) History of appendectomy ?Z90.49 - Acquired absence of other specified parts of digestive tract (ICD-10) History of heart artery stent ?Z95.5 - Presence of coronary angioplasty implant and graft (ICD-10) Family History (Updated 03/03/23 @ 18:46 by Darling Sharma RN) Mother Family history of CHF (congestive heart failure) Family history of diabetes mellitus Family history of hypertension Grandfather Family history of CHF (congestive heart failure) Family history of diabetes mellitus Family history of hypertension Family history of myocardial infarction Grandmother Family history of hypertension Social History Within the past year, how often did you have a drink containing alcohol: never Score interpretation: A score less than 4 is consistent with normal alcohol consumption. Smoking status: Current every day smoker What tobacco products do you use: cigarettes Cigarettes per day: 20 Years smoked: 42 Smoking pack-years: 42.00 Non-prescribed substance use: denies use Highest level of school completed/degree received: high school graduate Gender Identity: male Exam Narrative Exam Narrative: Gen.: Awake, alert, in no distress Head: Normocephalic, atraumatic ENT: Moist mucous membranes Respiratory: No respiratory distress Extremities: Moves extremities equally, Puncture wound noted on the plantar aspect of the right foot over the distal foot, approximately second metatarsal. There is no fluctuance or drainage, no palpable foreign body. The surrounding foot and medial foot is swollen, warm to the touch with almost circumferential blanching erythema. No drainage or red streaking to the proximal foot or ankle Psych: Normal mood and affect Neuro: No focal neuro deficit Skin: Warm, dry, intact Constitutional Vital Signs, click to edit/add: Last Vital Signs Temp 98.4 F 08/03/23 21:39 Pulse 91 H 08/03/23 21:39 Resp 17 08/03/23 21:39 BP 143/83 H 08/03/23 21:39 Pulse Ox 97 08/03/23 21:39 O2 Del Method Room Air 08/03/23 21:39 Course Vital Signs Vital signs: Vital Signs Temperature 97.9 F 08/03/23 18:44 Pulse Rate 110 H 08/03/23 18:44 Respiratory Rate 24 08/03/23 18:44 Blood Pressure 125/84 08/03/23 18:44 Pulse Oximetry 99 08/03/23 18:44 Oxygen Delivery Method Room Air 08/03/23 18:44 Temperature 98.4 F 08/03/23 21:39 Pulse Rate 91 H 08/03/23 21:39 Respiratory Rate 17 08/03/23 21:39 Blood Pressure 143/83 H 08/03/23 21:39 Pulse Oximetry 97 08/03/23 21:39 Oxygen Delivery Method Room Air 08/03/23 21:39 Medical Decision Making MDM Narrative Medical decision making narrative: Noted to have white blood cell count 14.3, elevated CRP and sed rates as well as acute on chronic kidney injury. He was treated with IV fluids, Levaquin and vancomycin. He has anaphylaxis with regard to penicillins. X-ray with no visible foreign body in the tissue of the foot. Case discussed with Dr. Elias for podiatry, he will see the patient tomorrow as a consult. Patient admitted to the hospitalist service for IV Antibiotics and pain control for left foot cellulitis. Medical Records Medical records reviewed: Yes I reviewed the patient's medical records Lab Data Lab results reviewed: Yes I reviewed the patient's lab results Labs: Lab Results 08/03/23 Range/Units 19:08 WBC 14.6 H (4.0-11.0) 10^3/uL RBC 5.23 (4.70-6.10) 10^6/uL Hgb 11.8 L (14.0-18.0) g/dL Hct 38.9 L (42.0-54.0) % MCV 74.4 L (80.0-94.0) fL MCH 22.6 L (25.9-34.0) pg MCHC 30.3 (29.9-35.2) g/dL RDW 17.0 H (11.0-15.0) % Plt Count 252 (150-450) 10^3/uL MPV 11.4 (9.5-13.5) fL Neut % (Auto) 73.4 (43.0-75.0) % Lymph % (Auto) 14.3 L (20.5-60.0) % [place] % (Auto) 9.4 (1.7-12.0) % Eos % (Auto) 1.8 (0.9-7.0) % Baso % (Auto) 0.7 (0.2-2.0) % Neut # (Auto) 10.7 H (1.4-6.5) 10^3/uL Lymph # (Auto) 2.1 (1.2-3.8) 10^3/uL [place] # (Auto) 1.4 H (0.3-0.8) 10^3/uL Eos # (Auto) 0.3 (0.0-0.7) 10^3/uL Baso # (Auto) 0.1 (0.0-0.1) 10^3/uL Abs Immat Gran (auto) 0.06 H (0.00-0.03) 10^3/uL Imm/Tot Granulo (auto) 0.4 (0.0-0.5) % ESR 118 H (<=20) mm/hr VBG pH 7.432 H (7.330-7.430) VBG pCO2 44.8 (40.0-52.0) mmHg Sodium 133 L (136-145) mmol/L Potassium 3.7 (3.5-5.1) mmol/L Chloride 92 L (98-107) mmol/L Carbon Dioxide 31.0 (21.0-32.0) mmol/L Anion Gap 13.7 BUN 23.0 H (7.0-18.0) mg/dL Creatinine 2.45 H (0.70-1.30) mg/dL Est GFR ( Amer) 33 L (>=60) Est GFR (Non-Af Amer) 27 L (>=60) BUN/Creatinine Ratio 9.4 Glucose 310 H (74-106) mg/dL Lactate 3.2 H* (0.4-2.0) mmol/L Calcium 9.3 (8.5-10.1) mg/dL Total Bilirubin 0.6 (0.2-1.0) mg/dL AST <5 L (15-37) U/L ALT 13 L (16-63) U/L Alkaline Phosphatase 134 H (46-116) U/L C-Reactive Protein 14.63 H (<=0.50) mg/dL Total Protein 8.3 H (6.4-8.2) g/dL Albumin 3.3 L (3.4-5.0) g/dL Globulin 5.0 g/dL Albumin/Globulin Ratio 0.7 Imaging Data xr foot: Attestation: I have reviewed the pertinent imaging results. Radiologist's impression: ITS Impressions Foot X-Ray 08/03/23 18:53 IMPRESSION: No radiographically dense foreign body is noted in the region of pain marker. Electronically authenticated by: AYAAN GAMINO Date: 08/03/2023 20:31 Procedure: XR foot RT min 3V EXAM: XR foot RT min 3V HISTORY: puncture wound/foreign body COMPARISON: None. TECHNIQUE: 3 views right foot FINDINGS: There is a marker placed at the plantar aspect of the foot overlying the first and second metatarsal webspace. No radiographically dense foreign body is seen at this location otherwise. No acute fracture or aggressive osseous abnormality. Joint alignment is preserved. Plantar fascia and Achilles tendon enthesophytes are noted. IMPRESSION: No radiographically dense foreign body is noted in the region of pain marker. Electronically authenticated by: AYAAN GAMINO Date: 08/03/2023 20:31 Discharge Plan Discharge Chief Complaint: Skin/Abscess/Foreign Body Clinical Impression: Cellulitis of foot, right, Puncture wound of right foot Patient Disposition: Admitted As Inpatient Time of Disposition Decision: 20:35 Condition: Good Discharge Date/Time: 08/03/23 21:17
[2023-08-03] MEDS: ONDANSETRON PF 4 MG/2 ML VIAL IV (19:13)
[2023-08-03] MEDS: MORPHINE SULFATE 4 MG/ML VIAL IV (19:13)
[2023-08-03] MEDS: LEVOFLOXACIN IN DEXTROSE 5 % 750 MG/150 ML IV.SOLN 100 MG IV (19:20)
[2023-08-03 19:28] LABS: PCO2 VBG 44.8 mmHg (40.0-52.0); pH VBG 7.432 (7.330-7.430)
[2023-08-03 19:31] LABS: Basophils Absolute Auto 0.1 10^3/uL (0.0-0.1); Basophils Percent Auto 0.7 % (0.2-2.0); Eosinophils Absolute Auto 0.3 10^3/uL (0.0-0.7); Eosinophils Percent Auto 1.8 % (0.9-7.0); Hematocrit 38.9 % (42.0-54.0); Hemoglobin 11.8 g/dL (14.0-18.0); Immature Granulocytes Abs Auto 0.06 10^3/uL (0.00-0.03); Immature Granulocytes Pct Auto 0.4 % (0.0-0.5); Lymphocytes Absolute Auto 2.1 10^3/uL (1.2-3.8); Lymphocytes Percent Auto 14.3 % (20.5-60.0); Mean Corpuscular HGB Conc 30.3 g/dL (29.9-35.2); Mean Corpuscular Hemoglobin 22.6 pg (25.9-34.0); Mean Corpuscular Volume 74.4 fL (80.0-94.0); Mean Platelet Volume 11.4 fL (9.5-13.5); Monocytes Absolute Auto 1.4 10^3/uL (0.3-0.8); Monocytes Percent Auto 9.4 % (1.7-12.0); Neutrophils Absolute Auto 10.7 10^3/uL (1.4-6.5); Neutrophils Percent Auto 73.4 % (43.0-75.0); Platelet Count 252 10^3/uL (150-450); Red Blood Count 5.23 10^6/uL (4.70-6.10); White Blood Count 14.6 10^3/uL (4.0-11.0)
[2023-08-03 19:44] VITALS: PULSE 100; RESP 16; O2SAT 97
[2023-08-03 19:45] LABS: Erythrocyte Sedimentation Rate 118 mm/hr (<=20)
[2023-08-03 19:50] LABS: Alanine Aminotransferase 13 U/L (16-63); Albumin Globulin Ratio 0.7; Albumin Level 3.3 g/dL (3.4-5.0); Alkaline Phosphatase 134 U/L (46-116); Anion Gap 13.7; Aspartate Amino Transferase <5 U/L (15-37); BUN Creatinine Ratio 9.4; Bilirubin Total 0.6 mg/dL (0.2-1.0); C Reactive Protein 14.63 mg/dL (<=0.50); Calcium 9.3 mg/dL (8.5-10.1); Chloride 92 mmol/L (98-107); Estimated GFR (African America 33 (>=60); Estimated GFR (Non-African Ame 27 (>=60); Glucose 310 mg/dL (74-106); Potassium 3.7 mmol/L (3.5-5.1); Sodium 133 mmol/L (136-145); Total Protein 8.3 g/dL (6.4-8.2)
[2023-08-03 20:01] LABS: Lactate/Lactic Acid 3.2 mmol/L (0.4-2.0)
[2023-08-03] MEDS: OXYCODONE HCL/ACETAMINOPHEN 5MG/325MG 1 TAB PO ×2 (20:41→23:19)
[2023-08-03] MEDS: 0.9 % SODIUM CHLORIDE 1,000 ML 1000 ML IV (20:42)
[2023-08-03] MEDS: VANCOMYCIN HCL 1,500 MG in 0.9 % SODIUM CHLORIDE 500 ML 250 MG IV (20:51)
[2023-08-03 21:17] VITALS: BP 135/88; PULSE 95; RESP 18; TEMP 36.8; O2SAT 98
--- OUTSIDE RECORDS SUMMARY | 2023-08-03 21:25 | XMS_ITS | CCD ---
Author Name Unknown Address [address] [place] [address] Organization [facility] Care Team Providers Care Medical Scientific Liaison Name Role Phone Jenaro Lynch Unavailable Unavailable Unavailable Jenaro Lynch Unavailable Amina Fagan Unavailable Verona Whaley Unavailable Doris Barnes Unavailable DO Jenaro Lynch Primary Care Provider [phone] JERARDO Mclaughlin Attending Provider DO Jenaro Lynch Attending Provider [phone] SAMSA ., DUARTE Attending Unavailable ELAINE ., DUARTE Admitting Unavailable DR LYSSA PERDOMO Consulting Unavailable DR JENARO LYNCH Primary Care Unavailable DUARTE MÁRQUEZ Consulting Unavailable JENARO LYNCH Primary Care Physician Dr. Jenaro Lynch Primary Care Unavaila Dolores Izquierdo Attending Unavailable Dolores Feldman Attending Unavailable Dolores Feldman Referring Unavailable Rory, Dr. Jenaro Orona Primary Care UnavailDolores Vaughn Attending Unavailable Dolores Feldman Referring Unavailable Rory, Dr. Jenaro Orona Primary Care Unavailmaría Inman II, Dr. Raulito Orona Referring Unavailable Rory, Dr. Jenaro Orona Primary Care Unavailmaría Inman II, Dr. Raulito Orona Attending Unavailable DO Jenaro Lynch Primary Care Provider MD Nancy Wilson Emergency Provider ROWE, Yeyo R Attending Unavailable ROWE, Yeyo R Referring Unavailable ROWE, Yeyo R Attending Unavailable ROWE, Yeyo R Attending Unavailable ROWE, Yeyo R Attending Unavailable ROWE, Yeyo R Attending Unavailable ROWE, Yeyo R Attending Unavailable ROWE, Yeyo R Attending Unavailable ROWE, Yeyo R Attending Unavailable ROWE, Yeyo R Attending Unavailable ROWE, Yeyo R Attending Unavailable ROWE, Yeyo R Attending Unavailable ROWE, Yeyo R Attending Unavailable ROWE, Yeyo R Attending Unavailable ROWE, Yeyo R Attending Unavailable ROWE, Yeyo R Attending Unavailable ROWE, Yeyo R Referring Unavailable ROWE, Yeyo R Admitting Unavailable ROWE, Yeyo R Attending Unavailable ROWE, Yeyo R Referring Unavailable ROWE, Yeyo R Admitting Unavailable Rory, Jenaro Primary Care Unavailable Steve, Nancy Admitting Unavailable Steve, Nancy Attending Unavailable Kuns, Jenaro Primary Care Unavailable Lowe, Shana Admitting Unavailable Lowe, Shana Attending Unavailable Kuns, Jenaro Primary Care [facility] Ad[facility] Attending Unavailable Allergies Allergy Classification Reported Allergen(s) Allergy Type Date of Onset Reaction(s) Facility (15 sources) natural latex rubber; 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: [Latex] Allergy to substance (finding) Itching (finding), Eruption of skin (disorder) [facility] (17 sources) Penicillins; 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: [Penicillins] Allergy to drug (finding) 07-14-19 21 Anaphylactoid reaction (disorder) [facility] (20 sources) Acetaminophen / oxyCODONE Drug Allergy vomiting [facility] Other (20 sources) tamsulosin Drug Allergy 07-14-19 21 hives [facility] (20 sources) PENICIILIN Propensity to adverse reactions SWELLING OF AIRWAY [facility] Other (3 sources) Acetaminophen; 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: [acetaminophen] Drug Allergy 07-14-19 21 Vomiting [facility] (4 sources) oxyCODONE; 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: [Oxycodone] Drug Allergy 02-08-20 17 [facility] (1 source) Penicillins Drug allergy (disorder) 09-23-19 14 [facility] (9 sources) Penicillin G; 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: [penicillin G benzathine] Drug Allergy [facility] (8 sources) Penicillin Drug Allergy anaphylaxis [facility] [employer] Other (1 source) Penicillins Drug allergy (disorder) 07-12-19 [facility] (1 source) tamsulosin Drug Allergy 04-06-20 [facility] Medications Current Medications Medication Drug Class(es) Dates Sig (Normalized) Sig (Original) acetaminophen 325 mg / HYDROcodone bitartrate 5 mg oral tablet (20 sources) Opioid Agonist Start: 04-11-2023 take 1 tablet by mouth four times daily as needed HYDROcodone-Aceta minophen 5-325 MG 1 tablet Orally QID PRN Apr, Active Start: 11-11-2022 take 1 tablet by kalie th every twelve hours HYDROcodone-Acetaminophen 5-325 MG 1 tab let as needed Orally every 12 hrs Nov, Active Start: 08-04-2022 take 1 tablet by kalie th every six hours Start: 04-19-2022 take 1 tablet by kalie th every six hours HYDROcodone-Acetaminophen 5-325 MG 1 tab let as needed Orally every 6 hrs Apr, Active Start: 02-15-2022 take 1 tablet by kalie th every six hours HYDROcodone-Acetaminophen 5-325 MG 1 tab let as needed Orally every 6 hrs Feb, Active Start: 10-08-2021 take 1 tablet by kalie th every six hours Start: 07-24-2019 End: 07-14-2020 take 1 tablet by mouth every six hours Hydrocodone-Acetaminophen Discontinued 1 TAB PO Q6H July 24, 2019 12:00am July 14, 2020 11:39am Start: 10-10-2014 [place] 325 mg-5 mg oral tablet 1 tab(s), Oral, q4hr for pain, 12 tab(s), Refill(s) 0 Start Date: 10/10/14 Status: Ordered ProAir HFA (20 sources) beta2-Adrenergic Agonist Start: 11-23-2022 ProAi r HFA Inhalation, q6hr Start Date: 11/23/22 Status: Ordered Start: 06-28-2019 take 1 puff(s) by in halation every four to six hours Albuterol Sulfate (Proair Hfa) 90 mcg/actuation Hfa Aerosol Inhaler Active 2 PUFF INHALATION EVERY 4-6 HOURS June 28, 2019 12:00am Start: 12-04-2017 take 2 puff(s) by in halation every four hours as needed ProAir HFA 108 (90 Base) MCG/ACT 2 puffs as needed Inhalation Q4H PRN PRN Dec, Active take 1-2 puff(s) by mouth every four to six hours as needed ProAir HFA 108 (90 Base) MCG/ACT AERS INHALE 1 TO 2 PUFFS BY MOUTH EVERY 4 TO 6 HOURS NEEDED Quantity: 0 Refills: 0 Ordered: 11-Jan-2023 DO Active take 2 puff(s) by in halation twice daily Albuterol Sulfate HFA 108 MCG/ACT AERS INHALE 2 PUFFS Twice daily Quantity: 0 Refills: 0 Ordered: 26-Oct-2021 DO Active amitriptyline hydrochloride 25 mg oral tablet (20 sources) Tricyclic Antidepressant Start: 07-12-2023 take 25 mg by mouth once daily Amitriptyline Active 25 MG PO Daily July 12, 2023 12:00am Start: 11-23-2022 take 1 mg by mouth o nce daily at bedtime amitriptyline 100 mg oral tablet mg tab(s), Oral, Once a day (at bedtime) Start Date: 11/23/22 Status: Ordered take 0.5-1 tablets b y mouth once daily at bedtime Amitriptyline HCl 25 MG 1/2-1 tab Orally QHS Active Aspirin 81 mg Tab-EC (8 sources) Start: 07-10-2014 Aspirin 81 mg Tab-EC Refills(s) 0 Start Date: 07/10/14 Status: Ordered atorvastatin 80 mg oral tablet (20 sources) HMG-CoA Reductase Inhibitor Start: 08-08-2019 take 80 mg by mouth once daily Atorvastatin Active 80 MG PO Daily August 08, 2019 12:00am Start: 07-10-2014 End: 07-24-2019 take 80 mg by mouth once daily Atorvastatin Discontinu ed 80 MG PO Daily March 31, 2018 11:00pm March 13, 2019 7:00am Blood Glucose Meter kit (20 sources) Start: 12-16-2013 Start: 12-16-2013 Blood Glucose Meter kit as directed BID Dec, Active Blood Pressure Kit - (20 sources) Start: 09-20-2019 Start: 09-20-2019 Blood Pressure Kit - check bp 1-2 times a day and prn Sep, Active 120 actuat budesonide 0.16 mg/actuat / formoterol fumarate 0.0045 mg/actuat metered dose inhaler (1 source) Corticosteroid, beta2-Adrenergic Agonist Start: 07-12-2023 Budesonide-Formoterol (Symbicort) 160-4.5 mcg/actuation HFA aerosol inhaler Active 1 INH INHALATION Twice daily July 12, 2023 12:00am clarithromycin 500 mg oral tablet (6 sources) Macrolide Antimicrobial Start: 08-02-2021 take 1 tablet by mouth every twelve hours Clarithromycin 500 MG 1 tablet Orally every 12 hrs for 10 day(s) Jul, Active diazePAM 5 mg oral tablet (20 sources) Benzodiazepine Start: 05-21-2020 End: 07-12-2023 take 1 tablet by mouth every twenty-fo ur hours diazePAM 5 MG 1 tablet as needed Orally Once a day prn Nov, Active 0.5 ml dulaglutide 1.5 mg/ml auto-injector (20 sources) GLP-1 Receptor Agonist Start: 07-12-2023 Dulaglutide (Trulicity) 0.75 mg/0.5 mL pen injector Active 0.75 MG SUBCUT every week July 12, 2023 12:00am Start: 01-30-2023 Trulicity Pen 1.5 mg/0.5 mL subcutaneous solution Refills(s) 0 Start Date: 01/30/23 Status: Ordered Start: 07-27-2021 inject 0.5 mL by sub cutaneous injection every week Trulicity 1.5 MG/0.5ML 0.5ml Subcutaneous weekly please dispense 4 pens Jul, Active Start: 07-27-2021 inject 0.5 mL by sub cutaneous injection every week empagliflozin 10 mg oral tablet (20 sources) Sodium-Glucose Cotransporter 2 Inhibitor Start: 07-12-2023 take 1 tablet by mouth once daily Empagliflozin (Jardiance) 10 mg tablet Active 10 MG PO Daily July 12, 2023 12:00am Start: 11-23-2022 take 1 mg by mouth o nce daily in the morning Jardiance 10 mg oral tablet mg tab(s), Oral, qAM Start Date: 11/23/22 Status: Ordered Start: 09-28-2020 take 1 tablet by kalie th every twenty-four hours Jardiance 25 MG 1 tablet Orally Once a day for 30 day(s) Sep, Active famotidine 40 mg oral tablet (8 sources) Histamine-2 Receptor Antagonist Start: 07-10-2014 take 1 tablet by mouth once daily at bedtime famotidine 40 mg Tab 40 mg = 1 tab(s), Oral, Once a day (at bedtime), # 30 tab(s), Refills(s) 0 Start Date: 07/10/14 Status: Ordered fenofibrate 160 mg oral tablet (8 sources) Peroxisome Proliferator Receptor alpha Agonist Start: 10-31-2013 take 1 tablet by mouth once daily fenofibrate 160 mg oral tablet 160 mg = 1 tab(s), Oral, Daily, Refills(s) 0 Start Date: 10/31/13 Status: Ordered 24 hr ferrous sulfate 142 mg extended release oral tablet (6 sources) Start: 04-06-2023 take 1 tablet by mouth three times weekly Slow Fe 142 (45 Fe) MG 1 tablet Orally Three times a Week for 30 day(s) Apr, Active 1.5 ml fremanezumab-vfrm 150 mg/ml prefilled syringe (1 source) Start: 07-12-2023 Fremanezumab-V frm (Ajovy Autoinjector) 225 mg/1.5 mL auto-injector Active 225 MG SUBCUT Q30D July 12, 2023 12:00am furosemide 20 mg oral tablet (3 sources) Loop Diuretic Start: 07-12-2023 take 1 tablet by mouth once daily in the morning Furosemide (Lasix) 20 mg tablet Active 20 MG PO Every morning July 12, 2023 12:00am Start: 03-13-2019 End: 07-14-2020 take 20 mg by mouth once daily Furosemide Discontinued 20 MG PO Daily March 12, 2019 11:00pm July 14, 2020 11:39am glimepiride 2 mg oral tablet (20 sources) Sulfonylurea Start: 10-31-2013 take 2 mg by mouth twice daily Glimepiride Active 2 MG PO Twice daily March 31, 2018 11:00pm hydroCHLOROthiazide 12.5 mg / valsartan 160 mg oral tablet (20 sources) Thiazide Diuretic, Angiotensin 2 Receptor Saida Start: 07-12-2023 take 1 tablet by mouth once daily Valsartan-Hydroc hlorothiazide Active 1 TAB PO Daily July 12, 2023 12:00am Start: 11-23-2022 take 1 tablet by kalie th once daily hydrochlorothiazide-valsartan 12.5 mg-16 0 mg Tab tab(s), Oral, Daily Start Date: 11/23/22 Status: Ordered take 1 tablet by kalie th once daily Valsartan-hydroCHLOROthiazide 160-12.5 M G 1 tablet Orally Once a day Active take 1 tablet by kalie th every eight hours take 1 tablet by kalie th three times daily Valsartan-hydroCHLOROthiazide 160-12.5 M G 1 tablet Orally TID Active ibuprofen 200 mg oral tablet (20 sources) Nonsteroidal Anti-inflammatory Drug take 1 tablet by mouth three times daily at mealtime as needed Ibuprofen 200 MG 1 tablet with food or milk as needed Orally Three times a day Active 24 hr isosorbide mononitrate 30 mg extended release oral tablet (10 sources) Nitrate Vasodilator Start: 07-12-19 24 take 30 mg by mouth once daily Isosorbide Mononitrate Active 30 MG PO Daily July 12, 2023 12:00am Start: 01-11-2023 take 1 tablet by kalie th once daily Isosorbide Mononitrate ER 30 MG Oral Tablet Extended Release 24 Hour TAKE 1 TABLET DAILY DIRECTED. Quantity: 30 Refills: 6 Ordered: 11-Jan-2023 Dolores Groves Start : 11-Jan-2023 Active new start Start: 07-11-2014 take 1 tablet by kalie th once daily in the morning Imdur 60 mg ER Tab 60 mg = 1 tab(s), Oral, qAM, # 30 tab(s), Refills(s) 0 Start Date: 07/11/14 Status: Ordered metFORMIN hydrochloride 1000 mg oral tablet (20 sources) Biguanide Start: 06-06-2012 take 1000 mg by mouth twice daily Metformin Active 1000 MG PO Twice daily April 01, 2018 11:00pm take 1 tablet by kalie th every twelve hours metFORMIN HCl - 1000 MG Oral Tablet TAKE 1 TABLET EVERY 12 HOURS. Quantity: 0 Refills: 0 Ordered: 26-Oct-2021 DO Active metoprolol tartrate 100 mg oral tablet (20 sources) beta-Adrenergic Saida Start: 04-01-2018 take 50 mg by mouth twice daily Metoprolol Tartrate Active 50 MG PO Twice daily March 31, 2018 11:00pm Start: 04-01-2018 take 100 mg by mouth twice abner ly Metoprolol Tartrate Active 100 MG PO Twice daily April 01, 2018 12:00am Start: 01-24-2011 metoprolol 100 mg, BID, Refills(s) 0 Start Date: 01/24/11 Status: Ordered take 0.5 tablet by m outh twice daily Metoprolol Tartrate 100 MG 1/2 tablet Orally Twice a day Active nitroglycerin 0.4 mg sublingual tablet (20 sources) Nitrate Vasodilator Start: 07-12-2023 Nitroglyce rin (Nitrostat) 0.4 mg tablet, sublingual Active 0.4 MG SUBLINGUAL every 5 to 15 minutes July 12, 2023 12:00am do not exceed 3 doses per episode Start: 07-10-2014 End: 03-13-2019 Nitroglycerin Discontinued 0 .4 MG SUBLINGUAL every 5 to 15 minutes March 31, 2018 11:00pm March 13, 2019 7:00am Nitroglycerin 0. 4 MG as directed Sublingual Active Prilosec (20 sources) Proton Pump Inhibitor Start: 11-23-2022 Prilosec Oral, Daily Start Date: 11/23/22 Status: Ordered Start: 07-24-2019 take 40 mg by mouth once daily Omeprazole Active 40 MG PO Daily July 24, 2019 12:00am Start: 07-24-2019 take 20 mg by mouth once daily Omeprazole Active 20 MG PO Daily July 24, 2019 1:00am Start: 01-02-2018 End: 07-24-2019 take 40 mg by mouth once daily Omeprazole Discontinued 40 MG PO Daily March 31, 2018 11:00pm July 24, 2019 1:52pm pregabalin 200 mg oral capsule (20 sources) Start: 08-08-2019 take 1 capsule by mouth every eight hours Lyrica 200 mg 1 capsule Orally Three times a day for 90 days Jan, Active Start: 01-24-2011 End: 07-24-2019 take 1 capsule by mouth three times daily Pregabalin (Lyrica) 200 mg Capsule Discontinued 200 MG PO Three times daily March 31, 2018 11:00pm July 24, 2019 1:52pm ProAir HFA 108 (90 Base) MCG/ACT (20 sources) Start: 12-04-2017 take 2 puff(s) by inhalation every four hours as needed ProAir HFA 108 (90 Base) MCG/ACT 2 puffs as needed Inhalation Q4H PRN PRN Dec, Active Start: 12-04-2017 take 2 puff(s) by inhalation e very four hours as needed rimegepant 75 mg disintegrating oral tablet (1 source) Start: 07-12-2023 take 1 tablet by mouth once daily Rimegepant (Nurtec Odt) 75 mg tablet,disintegrating Active 75 MG PO Daily July 12, 2023 12:00am rOPINIRole 1 mg oral tablet (20 sources) Nonergot Dopamine Agonist Start: 01-24-2011 take 1 tablet by mouth three times daily Ropinirole (Requip) 1 mg Tablet Active 1 MG PO Three times daily March 31, 2018 11:00pm sildenafil 100 mg oral tablet (20 sources) Phosphodiesterase 5 Inhibitor Start: 05-07-2018 take 1 tablet by mouth once daily Sildenafil (Viagra) 100 mg Tablet Active 100 MG PO Daily March 12, 2019 11:00pm SITagliptin 100 mg oral tablet (20 sources) Dipeptidyl Peptidase 4 Inhibitor Start: 07-12-2023 take 1 tablet by mouth once daily Sitagliptin Phosphate (Januvia) 100 mg tablet Active 100 MG PO Daily July 12, 2023 12:00am Start: 07-09-2020 take 1 mg by mouth once daily Januvia 100 mg Tab mg tab(s), Oral, Daily Start Date: 11/23/22 Status: Ordered tamsulosin hydrochloride 0.4 mg oral capsule (6 sources) alpha-Adrenergic Saida Start: 07-12-2023 take 0.4 mg by mouth twice daily Tamsulosin Active 0.4 MG PO Twice daily July 12, 2023 12:00am Start: 02-14-2023 take 1 capsule by mo vah twice daily tamsulosin 0.4 mg Cap 0.4 mg = 1 cap(s), Oral, BID, # 60 cap(s), Refills(s) 3, Pharmacy: [facility]/pharmacy #[id number], 182, cm, 02/14/23 8:58:00 EDT, Height/Length Dosing, 94, kg, 01/30/23 10:24:00 EDT, Weight Dosing Start Date: 02/14/23 Status: Ordered take 1 capsule by [facility] once daily Tamsulosin HCl - 0.4 MG Oral Capsule TAKE 1 CAPSULE Daily Quantity: 0 Refills: 0 Ordered: 15-Feb-2023 DO Active TENS Unit (20 sources) Start: 01-27-2014 Start: 01-27-2014 TENS Unit as d irected Use as directed. Jan, Active Tiotropium [place] (Spiriva With Handihaler) 18 mcg capsule, w/inhalation device (1 source) Start: 07-12-2023 take 1 capsule by inhalation once daily Tiotropium [place] (Spiriva With Handihaler) 18 mcg capsule, w/inhalation device Active 1 CAP INHALATION Daily July 12, 2023 12:00am puncture 1 cap using device; one dose = 2 inhalations tiZANidine 4 mg oral tablet (20 sources) Central alpha-2 Adrenergic Agonist Start: 07-12-2023 take 4 mg by mouth once daily at bedtime Tizanidine Active 4 MG PO Daily at bedtime July 12, 2023 12:00am Start: 11-23-2022 take 1 mg by mouth t hree times daily tizanidine 4 mg oral capsule mg cap(s), Oral, TID Start Date: 11/23/22 Status: Ordered Start: 07-04-2022 take 1 tablet by [facility] every twelve hours tiZANidine HCl 4 MG 1 tablet as needed Orally Twice a day Jun, Active take 2 tablets by [facility] at bedtime tiZANidine HCl - 4 MG Oral Tablet TAKE 2 TABLETS AT BEDTIME. Quantity: 0 Refills: 0 Ordered: 11-Jan-2023 DO Active traMADol hydrochloride 50 mg oral tablet (11 sources) Opioid Agonist Start: 02-27-2023 take 1 tablet by mouth every six hours traMADol HCl 50 MG 1 tablet as needed Orally QID for 7 days Feb, Active Start: 03-13-2019 End: 07-24-2019 take 50 mg by mouth four times daily Tramadol Discontinued 50 MG PO Four times daily March 12, 2019 11:00pm July 24, 2019 1:52pm Completed/Discontinued Medications Medication Drug Class(es) Dates Sig (Normalized) Sig (Original) alogliptin 25 mg oral tablet (4 sources) Start: 07-14-2020 End: 07-12-2023 take 1 tablet by mouth once daily Alogliptin (Nesina) 25 mg Tablet Discontinued 25 MG PO Daily July 14, 2020 12:00am July 12, 2023 5:30pm Start: 03-13-2019 End: 02-14-2020 take 1 tablet by mouth once daily Alogliptin (Nesina) 25 mg Tablet Discontinued 25 MG PO Daily March 12, 2019 11:00pm February 14, 2020 8:18am ALPRAZolam 0.5 mg oral tablet (9 sources) Benzodiazepine Start: 08-08-2019 End: 07-14-2020 take 1 tablet by mouth once daily Alprazolam (Xanax) 0.5 mg Tablet Discontinued 0.5 MG PO Daily August 08, 2019 12:00am July 14, 2020 11:39am Start: 03-13-2019 End: 07-24-2019 take 2 tablets by mouth once daily Alprazolam (Xanax) 0.5 mg Tablet Discontinued 1 MG PO Daily March 12, 2019 11:00pm July 24, 2019 1:52pm take 1 tablet by kalie th three times daily as needed ALPRAZolam 0.5 MG Oral Tablet TAKE 1 TABLET 3 TIMES DAILY NEEDED. Quantity: 0 Refills: 0 Ordered: 26-Oct-2021 DO Active amLODIPine 10 mg oral tablet (10 sources) Dihydropyridine Calcium Channel Saida Start: 04-01-2018 End: 07-24-2019 take 5 mg by mouth once daily Amlodipine Discontinued 5 MG PO Daily March 31, 2018 11:00pm July 24, 2019 1:52pm Start: 10-31-2013 take 1 tablet by kalie th once daily Norvasc 5 mg Tab 5 mg = 1 tab(s), Oral, Daily, Refills(s) 0 Start Date: 10/31/13 Status: Ordered aspirin 81 mg delayed release oral tablet (20 sources) Platelet Aggregation Inhibitor, Nonsteroidal Anti-inflammatory Drug Start: 06-22-2021 take 1 tablet by mouth once daily Aspirin Low Dose 81 MG Oral Tablet Delayed Release TAKE 1 TABLET DAILY. Quantity: 90 Refills: 3 Ordered: 26-Oct-2021 Raulito Inman MD Start : 22-Jun-2021 Active fill at patients request Start: 04-01-2018 take 81 mg by mouth once daily Aspirin Active 81 MG PO Daily March 31, 2018 11:00pm busPIRone hydrochloride 10 mg oral tablet (2 sources) Start: 03-13-2019 End: 07-24-2019 take 10 mg by mouth twice daily Buspirone Discontinued 10 MG PO Twice daily March 12, 2019 11:00pm July 24, 2019 1:52pm clopidogrel 75 mg oral tablet (20 sources) [id number] Platelet Inhibitor Start: 07-10-2014 End: 06-28-2019 take 75 mg by mouth once daily Clopidogrel Discontinued 75 MG PO Daily March 31, 2018 11:00pm June 28, 2019 10:24am dicyclomine hydrochloride 20 mg oral tablet (11 sources) Anticholinergic Start: 05-22-2020 End: 07-12-2023 take 20 mg by mouth three times daily Dicyclomine Discontinued 20 MG PO Three times daily July 14, 2020 12:00am July 12, 2023 5:30pm doxycycline hyclate 100 mg oral capsule (6 sources) Tetracycline-class Drug Start: 01-30-2023 take 1 capsule by mouth once daily doxycycline hyclate 100 mg Cap 100 mg = 1 cap(s), Oral, Daily, Take 1 pill the day before the procedure and 1 pill after the procedure, # 2 cap(s), Refills(s) 0, Pharmacy: [facility]/pharmacy #[id number], 182, cm, 01/30/23 10:24:00 EDT, Height/Length Dosing, 94, kg, 01/30/23 10:24:00 EDT, Weight Dosing Start Date: 01/30/23 Status: Ordered hydroCHLOROthiazide 25 mg / losartan potassium 100 mg oral tablet (2 sources) Thiazide Diuretic, Angiotensin 2 Receptor Saida Start: 04-01-2018 End: 03-13-2019 take 1 tablet by mouth once daily Losartan-Hydroch lorothiazide Discontinued 1 TAB PO Daily March 31, 2018 11:00pm March 13, 2019 7:00am hydroCHLOROthiazide 12.5 mg / olmesartan medoxomil 40 mg oral tablet (2 sources) Thiazide Diuretic, Angiotensin 2 Receptor Saida Start: 07-24-2019 End: 07-14-2020 take 1 tablet by mouth once daily Olmesartan-[place] chlorothiazide (Benicar Hct) 40-12.5 mg Tablet Discontinued 1 TAB PO Daily July 24, 2019 12:00am July 14, 2020 11:39am Ketorolac (20 sources) Nonsteroidal Anti-inflammatory Drug, Cyclooxygenase Inhibitor Start: 01-15-2018 Toradol per 15 mg Jan, 2 cc Start: 01-05-2018 Toradol per 15 mg Jan, 2 cc Start: 01-04-2018 Toradol per 15 mg Jan, 2 cc lansoprazole 30 mg delayed release oral capsule (2 sources) Proton Pump Inhibitor Start: 07-24-2019 End: 07-14-2020 take 1 capsule by mouth twice daily Lansoprazole (Prevacid) 30 mg Capsule,Delayed Release(Dr/Ec) Discontinued 30 MG PO Twice daily July 24, 2019 12:00am July 14, 2020 11:39am olmesartan medoxomil 5 mg oral tablet (4 sources) Angiotensin 2 Receptor Saida Start: 03-13-2019 End: 07-24-2019 take 1 tablet by mouth once daily Olmesartan (Benicar) 5 mg Tablet Discontinued 5 MG PO Daily June 28, 2019 12:00am July 24, 2019 1:52pm 12 hr ranolazine 1000 mg extended release oral tablet (10 sources) Anti-anginal Start: 07-10-2014 End: 07-14-2020 take 1 tablet by mouth twice daily Ranolazine (Ranexa) 1,000 mg Tablet Extended Release 12 Hr Discontinued 1000 MG PO Twice daily March 31, 2018 11:00pm July 14, 2020 11:39am tiotropium 0.018 mg inhalation powder (20 sources) Anticholinergic Start: 11-23-2022 Spiriva 18 mcg Cap 18 mcg = 1 cap(s), Inhalation, Daily, Using only ONE capsule, have the patient inhale twice, # 90 cap(s) Start Date: 11/23/22 Status: Ordered take 1 capsule by inhalation onc e daily Spiriva HandiHaler 18 MCG 1 capsule by inhaling the contents of the capsule using the HandiHaler device Inhalation Once a day Active take 1 capsule by inhalation onc e daily Spiriva HandiHaler 18 MCG 1 capsule by inhaling the contents of the capsule using the HandiHaler device Inhalation Once a day Active take 2 puff(s) by inhalation twi ce daily Spiriva Respimat 2.5 MCG/ACT Inhalation Aerosol Solution INHALE 2 PUFFS Twice daily Quantity: 0 Refills: 0 Ordered: 26-Oct-2021 DO Active Toradol 30 mg/ml (20 sources) Start: 07-25-2022 Toradol 30 mg/ ml Jul, 60 mg Start: 07-18-2022 Toradol 30 mg/ ml Jul, 60 mg Start: 07-13-2022 Toradol 30 mg/ ml Jul, 60 mg Start: 07-04-2022 Toradol 30 mg/ ml Jun, 60 mg traZODone hydrochloride 50 mg oral tablet (2 sources) Serotonin Reuptake Inhibitor Start: 07-24-2019 End: 07-14-2020 take 50 mg by mouth at bedtime Trazodone Discontinued 50 MG PO Bedtime July 24, 2019 12:00am July 14, 2020 11:40am Triamcinolone (20 sources) Corticosteroid Start: 10-02-2013 KENALOG - 10 mg Sep, 1 cc varenicline 1 mg oral tablet (2 sources) Partial Cholinergic Nicotinic Agonist Start: 07-14-2020 End: 07-12-2023 take 1 tablet by mouth twice daily Varenicline (Chantix Continuing Month Box) 1 mg tablet Discontinued 1 MG PO Twice daily July 14, 2020 12:00am July 12, 2023 5:30pm Problems Active Problems Problem Classification Problem Date Documented Da te Episodic/Chronic Abdominal pain (20 sources) Abdominal pain; 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: [Unspecified abdominal pain] Episodic Acute and unspecified renal failure (20 sources) Renal failure syndrome; 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: [Unspecified kidney failure] Chronic Acute myocardial infarction (16 sources) Myocardial infarction 10-10-2014 Chronic Anxiety disorders (20 sources) Anxiety; 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: [Anxiety disorder, unspecified] Onset: 2 Resolved: 2 Chronic Asthma (20 sources) Asthmatic bronchitis; 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: [Unspecified asthma, uncomplicated] 11-23-2022 Chronic Cardiac dysrhythmias (20 sources) Atrial fibrillation; 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: [Unspecified atrial fibrillation] Chronic Cardiac dysrhythmias (6 sources) Palpitations; 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: [Palpitations] Episodic Chronic kidney disease (20 sources) Chronic kidney disease stage 3; 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: [Chronic kidney disease, stage 3 (moderate)] Onset: 2 Resolved: 2 Chronic Chronic kidney disease (6 sources) Chronic kidney disease; 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: [Stage 3 chronic kidney disease, unspecified whether stage 3a or 3b CKD] Onset: 2 Resolved: 2 Chronic obstructive pulmonary disease and bronchiectasis (8 sources) Pulmonary emphysema 11-23-2022 Chronic Congestive heart failure; nonhypertensive (8 sources) Congestive heart failure 10-10-2014 Chronic Coronary atherosclerosis and other heart disease (20 sources) Disorder of coronary artery; 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: [Coronary atherosclerosis of unspecified type of vessel, paimiut or graft] Onset: 2 Resolved: 2 Chronic Deficiency and other anemia (1 source) Anemia, unspecified Episodic Diabetes mellitus with complications (20 sources) Peripheral vascular disorder due to diabetes mellitus; 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: [Type 2 diabetes mellitus with other circulatory complications] Onset: 2 Resolved: 2 Chronic Diabetes mellitus without complication (20 sources) Diabetes mellitus; 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: [Diabetes mellitus without mention of complication, type II or unspecified type, not stated as uncontrolled] 04-02-2018 Chronic Disorders of lipid metabolism (20 sources) Hyperlipidemia; 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: [Other and unspecified hyperlipidemia] Onset: 2 Resolved: 2 Chronic Esophageal disorders (20 sources) Gastroesophageal reflux disease; 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: [Gastro-esophageal reflux disease without esophagitis] Onset: 2 Resolved: 2 Chronic Essential hypertension (20 sources) Hypertensive disorder; 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: [Essential (primary) hypertension] 04-02-2018 Chronic Genitourinary symptoms and ill-defined conditions (20 sources) Retention of urine; 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: [Retention of urine, unspecified] Onset: 3 Episodic Gout and other crystal arthropathies (20 sources) Gout; 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: [Gout, unspecified] Onset: 2 Resolved: 2 Chronic Headache; including migraine (20 sources) Headache; 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: [Headache] 11-23-2022 Episodic Headache; including migraine (6 sources) Headache; including migraine; 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: [Headache, unspecified] Onset: 3 Heart valve disorders (8 sources) Heart murmur 11-23-2022 Episodic Hyperplasia of prostate (11 sources) Benign prostatic hypertrophy with outflow obstruction; 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: [Benign prostatic hyperplasia with lower urinary tract symptoms] Onset: 3 Chronic Hypertension with complications and secondary hypertension (20 sources) Hypertensive renal disease; 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: [Hypertensive chronic kidney disease with stage 1 through stage 4 chronic kidney disease, or unspecified chronic kidney disease] Onset: 2 Resolved: 2 Chronic Inflammatory conditions of male genital organs (11 sources) Orchitis; 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: [Orchitis] Onset: 3 Episodic Nausea and vomiting (20 sources) Nausea and vomiting; 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: [Nausea with vomiting, unspecified] Episodic Nonspecific chest pain (2 sources) Chest pain; 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: [Chest pain, unspecified] 04-01-2018 Episodic Nutritional deficiencies (20 sources) Vitamin D deficiency; 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: [Vitamin D deficiency, unspecified] Onset: 2 Resolved: 2 Chronic Osteoarthritis (8 sources) Arthritis 01-16-2013 Chronic Other acquired deformities (20 sources) Contracture of joint of hand; 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: [Contracture, 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 Other aftercare (20 sources) Long-term current use of insulin; 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: [snf (current) use of insulin] Episodic Other and ill-defined heart disease (8 sources) Heart disease 11-23-2022 Chronic Other connective tissue disease (20 sources) Pain in limb; 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: [Pain in leg, unspecified] Episodic Other connective tissue disease (5 sources) Pain in right leg Onset: 2 Resolved: 2 Episodic Other connective tissue disease (8 sources) 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 Other connective tissue disease (1 source) Pain in left arm Episodic Other connective tissue disease (1 source) Other specified soft tissue disorders; 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: [Other specified soft tissue disorders] Onset: 4 Episodic Other diseases of bladder and urethra (6 sources) Mass of urinary bladder; 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: [Other specified disorders of bladder] Chronic Other diseases of bladder and urethra (1 source) Other specified disorders of bladder Chronic Other endocrine disorders (20 sources) Testicular hypofunction; 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: [Testicular hypofunction] Chronic Other gastrointestinal disorders (20 sources) Diarrhea; 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: [Diarrhea, unspecified] Episodic Other hereditary and degenerative nervous system conditions (20 sources) Restless legs; 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: [Restless legs syndrome] 08-16-2013 Chronic Other hereditary and degenerative nervous system conditions (4 sources) Restless legs syndrome Onset: 2 Resolved: 2 Chronic Other lower respiratory disease (20 sources) Solitary nodule of lung; 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: [Solitary pulmonary nodule] Episodic Other male genital disorders (20 sources) Impotence of organic origin; 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: [Male erectile dysfunction, unspecified] Chronic Other male genital disorders (3 sources) Male erectile dysfunction, unspecified Onset: 2 Resolved: 2 Chronic Other nervous system disorders (20 sources) Neuropathy; 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: [Polyneuropathy, unspecified] Chronic Other nervous system disorders (16 sources) Unspecified mononeuropathy of bilateral lower limbs; 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: [Neuropathic pain of both feet] Chronic Other nervous system disorders (20 sources) Chronic pain syndrome; 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: [Chronic pain syndrome] Chronic Other nervous system disorders (20 sources) Cervical myelopathy; 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: [Disease of spinal cord, unspecified] Chronic Other nervous system disorders (20 sources) Chronic pain; 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: [Other chronic pain] Chronic Other nervous system disorders (20 sources) Bilateral carpal tunnel syndrome; 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: [Carpal tunnel syndrome, bilateral upper limbs] Chronic Other nervous system disorders (20 sources) Neuropathy of lower limb; 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: [Unspecified mononeuropathy of bilateral lower limbs] Chronic Other nervous system disorders (20 sources) Skin sensation disturbance; 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: [Paresthesia of skin] Episodic Other nutritional; endocrine; and metabolic disorders (20 sources) Obesity; 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: [Obesity, unspecified] Chronic Other nutritional; endocrine; and metabolic disorders (20 sources) Obese class II; 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: [Body mass index (BMI) 35.0-35.9, adult] Chronic Other nutritional; endocrine; and metabolic disorders (20 sources) Obese class I; 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: [Body mass index (BMI) 34.0-34.9, adult] 04-02-2018 Chronic Other nutritional; endocrine; and metabolic disorders (1 source) Body mass index (BMI) 34.0-34.9, adult Onset: 2 Resolved: 2 Chronic Other nutritional; endocrine; and metabolic disorders (6 sources) Overweight in adulthood with body mass index of 25 or more but less than 30; 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: [Overweight] Episodic Other screening for suspected conditions (not mental disorders or infectious disease) (20 sources) Patient encounter status; 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: [Encounter for screening for malignant neoplasm of colon] Onset: 2 Resolved: 2 Episodic Peripheral and visceral atherosclerosis (20 sources) Intermittent claudication; 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: [Peripheral vascular disease, unspecified] Chronic Residual codes; unclassified (20 sources) Edema of lower extremity; 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: [Localized edema] 07-12-2023 Episodic Residual codes; unclassified (20 sources) Peripheral edema; 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: [Edema, unspecified] Episodic Residual codes; unclassified (20 sources) Amnesia; 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: [Other amnesia] Episodic Residual codes; unclassified (20 sources) Difficulty sleeping ; 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: [Sleep disorder, unspecified] Episodic Residual codes; unclassified (20 sources) Insomnia; 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: [Insomnia, unspecified] Episodic Residual codes; unclassified (2 sources) FH: premature coronary heart disease; 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: [Family history of ischemic heart disease and other diseases of the circulatory system] 04-01-2018 Episodic Residual codes; unclassified (8 sources) Tobacco user 01-16-2013 Episodic Comment on above: Added secondary to s ocial history documentation. Screening and history of mental health and substance abuse codes (6 sources) Ex-smoker; 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: [Personal history of tobacco use] Episodic Comment on above: qauit 07/2020; Septicemia (except in labor) (1 source) Sepsis, unspecified organism Episodic Spondylosis; intervertebral disc disorders; other back problems (20 sources) Degeneration of lumbar intervertebral disc; 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: [Other intervertebral disc degeneration, lumbar region] Chronic Spondylosis; intervertebral disc disorders; other back problems (20 sources) Neck pain; 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: [Cervicalgia] Episodic Substance-related disorders (20 sources) Smoker; 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: [Nicotine dependence, unspecified, uncomplicated] 07-10-2014 Chronic Comment on above: Added secondary to d ocumentation in Social History. Unclassified (1 source) Type 2 diabetes mellitus with other circulatory complications; 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: [Type 2 diabetes mellitus with other circulatory complications] Onset: 3 Urinary tract infections (1 source) Urinary tract infection, site not specified Episodic Past or Other Problems Problem Classification Problem Date Documented Da te Episodic/Chronic Neoplasms of unspecified nature or uncertain behavior (1 source) Neoplasm of uncertain behavior of skin Onset: 02-15-2022 Resolved: 02-15-2022 Episodic Other connective tissue disease (1 source) Pain in left leg Onset: 10-08-2021 Resolved: 10-08-2021 Episodic Other hematologic conditions (1 source) Other abnormality of red blood cells Onset: 02-15-2022 Resolved: 02-15-2022 Episodic Other lower respiratory disease (4 sources) Other nonspecific abnormal finding of lung field; 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: [OTH NONSPECIFIC ABN FIND LNG FIELD] Onset: 10-12-2021 Episodic Other non-traumatic joint disorders (1 source) Pain in right hip Onset: 07-27-2021 Resolved: 07-27-2021 Episodic Other nutritional; endocrine; and metabolic disorders (1 source) Abnormal weight loss Onset: 07-27-2021 Resolved: 07-27-2021 Episodic Residual codes; unclassified (1 source) Insomnia, unspecified Onset: 07-27-2021 Resolved: 07-27-2021 Episodic Results Test Name Value Interpretation Reference Range Facility US venous duplex LE BIon US venous duplex LE BI [facility] [place] [address] Ultrasound Report Signed Patient: Solomon Feldman SR MR#: [id number] : 1965 Acct:[id number] Age/Sex: 57 / M ADM Date: 07/12/23 Loc: ER Room: Type: [facility] ER Attending Dr: Ordering Provider: Nancy Wilson MD Date of Service: 07/12/23 US/US venous duplex LE BI: Swelling Copies to: Nancy Wilson MD BILATERAL LOWER EXTREMITY VENOUS DUPLEX INDICATION: Bilateral lower extremity swelling and edema. PROCEDURE: Color-flow duplex scanning is used to interrogate the deep venous system of the right and left lower extremities. The common femoral vein, femoral vein and popliteal vein show good compressibility with normal proximal and distal augmentation. The calf veins are compressible. US/US venous duplex LE BI IMPRESSION: NO EVIDENCE FOR DEEP VEIN THROMBOSIS OR PROXIMAL SUPERFICIAL THROMBOPHLEBITIS IN THE RIGHT OR LEFT LOWER EXTREMITY. Impression dictated by: Howard Boss MD07/13/2023 11:56 AM Dictation Location: [id number] Tech: Nancy Pantoja Transcribed By: BOB 07/13/23 1156 Dictated By: Howard Boss MD 07/13/23 1156 Signed By: 07/13/23 1156 [facility] US venous duplex UE LTon US venous duplex UE LT [facility] [place] [address] Ultrasound Report Signed Patient: Solomon Feldman SR MR#: [id number] : 1965 Acct:[id number] Age/Sex: 57 / M ADM Date: 07/12/23 Loc: ER Room: Type: [facility] ER Attending Dr: Ordering Provider: Nancy Wilson MD Date of Service: 07/12/23 US/US venous duplex UE LT: DYSPNEA Copies to: Nancy Wilson MD VENOUS DUPLEX LEFT UPPER EXTREMITY INDICATION: Left arm tightness. PROCEDURE: Color-flow duplex scanning is used to interrogate the deep venous system of the Left upper extremity. Compression, Color flow and Augmentation were all normal for the deep and superficial veins of the left arm. In the contralateral limb, the subclavian vein appears with color flow and augmentation. No thrombus was identified. US/US venous duplex UE LT IMPRESSION: NO EVIDENCE OF DVT OR SVT IN THE LEFT ARM. Impression dictated by: Howard Boss MD07/13/2023 11:56 AM Dictation Location: [id number] Tech: Nancy Pantoja Transcribed By: BOB 07/13/23 1156 Dictated By: Howard Boss MD 07/13/23 1155 Signed By: 07/13/23 1156 [facility] Activated partial thrombopla stin time (aPTT) in platelet poor plasma by coagulation aOrdered By: Nancy Wilson on 07-12-2023 aPTT Coag (PPP) [Time] 29.4 s 25.1-36.5 [facility] Comment on above: A hematocrit value g reater than 55% may lead to inaccurate results in coagulation testing. Patients having hematocrit values >55% require a special collection tube for coagulation studies. Please contact the laboratory at [phone] for redraw instructions. Alanine aminotransferase [En zymatic activity/volume] in Serum or PlasmaOrdered By: Nancy Wilson on 07-12-2023 ALT [Catalytic activity/Vol] 9 U/L 7-52 [facility] Albumin [Mass/volume] in Ser um or Plasma by Bromocresol green (BCG) dye binding methoOrdered By: Nancy Wilson on 07-12-2023 Albumin BCG dye [Mass/Vol] 3.9 g/dL 3.5-5.7 [facility] Alkaline phosphatase [Enzyma tic activity/volume] in Serum or PlasmaOrdered By: Nancy Wilson on 07-12-2023 ALP [Catalytic activity/Vol] 106 U/L 34-104 [facility] Aspartate aminotransferase [ Enzymatic activity/volume] in Serum or PlasmaOrdered By: Nancy Wilson on 07-12-2023 AST [Catalytic activity/Vol] 8 U/L 13-39 [facility] B-Type Natriuretic Peptideon 07-12-2023 Natriuretic peptide B (Bld) [Mass/Vol] 34.0 pg/mL Normal 5-100 [facility] Comment on above: Result Comment: PERF ORMED BY: [facility] [address] [place] [address] PATHOLOGIST [employer]BER CLIFFORD LOBATO M.D. Performed By: #### B INTELLIGENCE SUPPORT OFFICER, CMP, HS TROP, CK, PTT, CBC, PT ####[facility] [id number] [place] [id number] [facility] Basophils Auto (Bld) [#/Vol] Ordered By: Nancy Wilson on 07-12-2023 Basophils (Bld) [#/Vol] 0.1 10*3/uL 0.0-0.2 [facility] Basophils/100 WBC Auto (Bld) Ordered By: Nanyc Wilson on 07-12-2023 Basophils/100 WBC (Bld) 1.1 % . [facility] Bilirubin.total [Mass/volume ] in Serum or PlasmaOrdered By: Nancy Wilson on 07-12-2023 Bilirubin [Mass/Vol] 0.4 mg/dL 0.3-1.0 [facility] Calcium [Mass/volume] in Ser um or PlasmaOrdered By: Nancy Wilson on 07-12-2023 Calcium [Mass/Vol] 8.5 mg/dL 8.6-10.3 [facility] Carbon dioxide, total [Moles /volume] in Serum or PlasmaOrdered By: Nancy Wilson on 07-12-2023 CO2 [Moles/Vol] 24.5 mmol/L 21.0-31.0 [facility] Chloride [Moles/volume] in S ilia or PlasmaOrdered By: Nancy Wilson on 07-12-2023 Chloride [Moles/Vol] 102 mmol/L 98-107 [facility] Complete Blood Count Auto Di ffon 07-12-2023 Basophils (Bld) [#/Vol] 0.1 10*3/uL Normal 0.0-0.2 [facility] Comment on above: Result Comment: PERF ORMED BY: [facility] [address] [place] [address] PATHOLOGIST [employer]BER CLIFFORD LOBATO M.D. Performed By: #### B INTELLIGENCE SUPPORT OFFICER, CMP, HS TROP, CK, PTT, CBC, PT ####[address] Basophils/100 WBC (Bld) 1.1 % Normal . [facility] Comment on above: Performed By: #### B INTELLIGENCE SUPPORT OFFICER, CMP, HS TROP, CK, PTT, CBC, PT ####[address] Eosinophils (Bld) [#/Vol] 0.3 10*3/uL Normal 0.0-0.45 [facility] Comment on above: Performed By: #### B INTELLIGENCE SUPPORT OFFICER, CMP, HS TROP, CK, PTT, CBC, PT ####[address] Eosinophils/100 WBC (Bld) 3.3 % Normal . [facility] Comment on above: Performed By: #### B INTELLIGENCE SUPPORT OFFICER, CMP, HS TROP, CK, PTT, CBC, PT ####[address] Erythrocyte distribution width (RBC) [Ratio] 17.1 % High 12.0-14.8 [facility] Comment on above: Performed By: #### B INTELLIGENCE SUPPORT OFFICER, CMP, HS TROP, CK, PTT, CBC, PT ####[address] Hematocrit (Bld) [Volume fraction] 32.7 % Low 38.8-50.0 [facility] Comment on above: Performed By: #### B INTELLIGENCE SUPPORT OFFICER, CMP, HS TROP, CK, PTT, CBC, PT ####[address] Hemoglobin (Bld) [Mass/Vol] 10.6 g/dL Low 13.0-17.0 [facility] Comment on above: Performed By: #### B INTELLIGENCE SUPPORT OFFICER, CMP, HS TROP, CK, PTT, CBC, PT ####[address] Lymphocytes (Bld) [#/Vol] 1.9 10*3/uL Normal 1.00-4.8 [facility] Comment on above: Performed By: #### B INTELLIGENCE SUPPORT OFFICER, CMP, HS TROP, CK, PTT, CBC, PT ####[address] Lymphocytes/100 WBC (Bld) 20.0 % Normal . [facility] Comment on above: Performed By: #### B INTELLIGENCE SUPPORT OFFICER, CMP, HS TROP, CK, PTT, CBC, PT ####[address] MCH (RBC) [Entitic mass] 22.8 pg Low 27.5-35.2 [facility] Comment on above: Performed By: #### B INTELLIGENCE SUPPORT OFFICER, CMP, HS TROP, CK, PTT, CBC, PT ####[address] MCV (RBC) [Entitic vol] 70.6 fL Low 83.5-101 [facility] Comment on above: Performed By: #### B INTELLIGENCE SUPPORT OFFICER, CMP, HS TROP, CK, PTT, CBC, PT ####[address] Mean Corpuscular HGB Conc 32.4 g/dL Low 32.5-35.6 [facility] Comment on above: Performed By: #### B INTELLIGENCE SUPPORT OFFICER, CMP, HS TROP, CK, PTT, CBC, PT ####[address] Monocytes (Bld) [#/Vol] 1.0 10*3/uL High 0.0-0.8 [facility] Comment on above: Performed By: #### B INTELLIGENCE SUPPORT OFFICER, CMP, HS TROP, CK, PTT, CBC, PT ####[address] Monocytes/100 WBC (Bld) 18.12 % Normal 0.00-20.00 [facility] Comment on above: Performed By: #### B INTELLIGENCE SUPPORT OFFICER, CMP, HS TROP, CK, PTT, CBC, PT ####[address] Monocytes/100 WBC (Bld) 10.2 % Normal . [facility] Comment on above: Performed By: #### B INTELLIGENCE SUPPORT OFFICER, CMP, HS TROP, CK, PTT, CBC, PT ####[address] Neutrophils (Bld) [#/Vol] 6.2 10*3/uL Normal 1.8-7.7 [facility] Comment on above: Performed By: #### B INTELLIGENCE SUPPORT OFFICER, CMP, HS TROP, CK, PTT, CBC, PT ####[address] Neutrophils/100 WBC (Bld) 65.4 % Normal . [facility] Comment on above: Performed By: #### B INTELLIGENCE SUPPORT OFFICER, CMP, HS TROP, CK, PTT, CBC, PT ####[address] NRBC% 0.1 /100{WBC} Normal 0-0.5 [facility] Comment on above: Performed By: #### B INTELLIGENCE SUPPORT OFFICER, CMP, HS TROP, CK, PTT, CBC, PT ####[address] Platelet mean volume (Bld) [Entitic vol] 9.1 fL Normal 6.6-10.1 [facility] Comment on above: Performed By: #### B INTELLIGENCE SUPPORT OFFICER, CMP, HS TROP, CK, PTT, CBC, PT ####[address] Platelets (Bld) [#/Vol] 233 10*3/uL Normal 150-450 [facility] Comment on above: Performed By: #### B INTELLIGENCE SUPPORT OFFICER, CMP, HS TROP, CK, PTT, CBC, PT ####[address] RBC (Bld) [#/Vol] 4.63 10*6/uL Normal 3.90-5.60 [facility] Comment on above: Performed By: #### B INTELLIGENCE SUPPORT OFFICER, CMP, HS TROP, CK, PTT, CBC, PT ####[address] WBC (Bld) [#/Vol] 9.5 10*3/uL Normal 4.1-10.5 [facility] Comment on above: Performed By: #### B INTELLIGENCE SUPPORT OFFICER, CMP, HS TROP, CK, PTT, CBC, PT ####[address] Comprehensive Metabolic Pane bárbara 07-12-2023 Albumin [Mass/Vol] 3.9 g/dL Normal 3.5-5.7 [facility] Comment on above: Performed By: #### B INTELLIGENCE SUPPORT OFFICER, CMP, HS TROP, CK, PTT, CBC, PT ####[address] Albumin/Globulin [Mass ratio] 1.3 {ratio} Normal [facility] Comment on above: Performed By: #### B INTELLIGENCE SUPPORT OFFICER, CMP, HS TROP, CK, PTT, CBC, PT ####[address] ALP [Catalytic activity/Vol] 106 U/L High 34-104 [facility] Comment on above: Performed By: #### B INTELLIGENCE SUPPORT OFFICER, CMP, HS TROP, CK, PTT, CBC, PT ####[address] ALT [Catalytic activity/Vol] 9 U/L Normal 7-52 [facility] Comment on above: Performed By: #### B INTELLIGENCE SUPPORT OFFICER, CMP, HS TROP, CK, PTT, CBC, PT ####[address] Anion gap [Moles/Vol] 13.4 mmol/L Normal 6.0-15.0 [facility] Comment on above: Performed By: #### B INTELLIGENCE SUPPORT OFFICER, CMP, HS TROP, CK, PTT, CBC, PT ####[address] AST [Catalytic activity/Vol] 8 U/L Low 13-39 [facility] Comment on above: Performed By: #### B INTELLIGENCE SUPPORT OFFICER, CMP, HS TROP, CK, PTT, CBC, PT ####[address] Bilirubin [Mass/Vol] 0.4 mg/dL Normal 0.3-1.0 [facility] Comment on above: Performed By: #### B INTELLIGENCE SUPPORT OFFICER, CMP, HS TROP, CK, PTT, CBC, PT ####[address] Calcium [Mass/Vol] 8.5 mg/dL Low 8.6-10.3 [facility] Comment on above: Performed By: #### B INTELLIGENCE SUPPORT OFFICER, CMP, HS TROP, CK, PTT, CBC, PT ####[address] Chloride [Moles/Vol] 102 mmol/L Normal 98-107 [facility] Comment on above: Performed By: #### B INTELLIGENCE SUPPORT OFFICER, CMP, HS TROP, CK, PTT, CBC, PT ####[address] CO2 [Moles/Vol] 24.5 mmol/L Normal 21.0-31.0 [facility] Comment on above: Performed By: #### B INTELLIGENCE SUPPORT OFFICER, CMP, HS TROP, CK, PTT, CBC, PT ####[place] [id number] [address] Creatinine [Mass/Vol] 1.82 mg/dL High 0.70-1.30 [facility] Comment on above: Performed By: #### B INTELLIGENCE SUPPORT OFFICER, CMP, HS TROP, CK, PTT, CBC, PT ####[place] [id number] [address] Creatinine Clr Calc Pharmacy 54.64 [facility] Comment on above: Result Comment: PERF ORMED BY: [facility] [address] [facility] [place] [address] PATHOLOGIST T[employer] MEMBER CLIFFORD LOBATO M.D. Performed By: #### B INTELLIGENCE SUPPORT OFFICER, CMP, HS TROP, CK, PTT, CBC, PT ####[address] GFR/1.73 sq M.predicted MDRD (S/P/Bld) [Vol rate/Area] 42.789 mL/min/{1.73_m2} [facility] Comment on above: Performed By: #### B INTELLIGENCE SUPPORT OFFICER, CMP, HS TROP, CK, PTT, CBC, PT ####[address] Globulin (S) [Mass/Vol] 3.1 g/dL [facility] Comment on above: Performed By: #### B INTELLIGENCE SUPPORT OFFICER, CMP, HS TROP, CK, PTT, CBC, PT ####[address] Glucose [Mass/Vol] 302 mg/dL High 70-100 [facility] Comment on above: Result Comment: [place] Glucose Reference Range is dependent on time and content of last meal. Glucose of more than 200 mg/dL in a nonstressed, ambulatory subject supports the diagnosis of Diabetes Mellitus. ADA recommended reference range Performed By: #### B INTELLIGENCE SUPPORT OFFICER, CMP, HS TROP, CK, PTT, CBC, PT ####[address] Potassium [Moles/Vol] 3.9 mmol/L Normal 3.5-5.1 [facility] Comment on above: Performed By: #### B INTELLIGENCE SUPPORT OFFICER, CMP, HS TROP, CK, PTT, CBC, PT ####[place] [id number] [facility] Protein [Mass/Vol] 7.0 g/dL Normal 6.4-8.9 [facility] Comment on above: Performed By: #### B INTELLIGENCE SUPPORT OFFICER, CMP, HS TROP, CK, PTT, CBC, PT ####[place] [id number] [facility] Sodium [Moles/Vol] 136 mmol/L Normal 136-145 [facility] Comment on above: Performed By: #### B INTELLIGENCE SUPPORT OFFICER, CMP, HS TROP, CK, PTT, CBC, PT ####[place] [id number] [facility] Urea nitrogen [Mass/Vol] 16 mg/dL Normal 7-25 [facility] Comment on above: Performed By: #### B INTELLIGENCE SUPPORT OFFICER, CMP, HS TROP, CK, PTT, CBC, PT ####[place] [id number] [facility] Creatine Kinaseon 07-12-2023 CK [Catalytic activity/Vol] 55 U/L Normal 30-223 [facility] Comment on above: Performed By: #### B INTELLIGENCE SUPPORT OFFICER, CMP, HS TROP, CK, PTT, CBC, PT ####[place] [id number] [facility] Creatine kinase [Enzymatic a ctivity/volume] in Serum or PlasmaOrdered By: Nancy Wilson on 07-12-2023 CK [Catalytic activity/Vol] 55 U/L 30-223 [facility] Creatinine [Mass/volume] in Serum or PlasmaOrdered By: Nancy Wilson on 07-12-2023 Creatinine [Mass/Vol] 1.82 mg/dL 0.70-1.30 [facility] ECG 12 lead ECGon 07-12-2023 ECG 12 lead ECG [facility] [address] [place] [address] Electrocardiograph Report Signed Patient: Solomon Feldman SR MR#: [id number] : 1965 Acct:[id number] Age/Sex: 57 / M ADM Date: 07/12/23 Loc: ER Room: Type: [facility] ER Attending Dr: Ordering Provider: Nancy Wilson MD Date of Service: 07/12/2312/26/1608 ECG/ECG 12 lead ECG: Extremity Problem, Nontraumatic Copies to: Test Reason : Blood Pressure : / mmHG Vent. Rate : 089 BPM Atrial Rate : 090 BPM P-R Int : 000 ms QRS Dur : 104 ms QT Int : 368 ms P-R-T Axes : 000 094 049 degrees QTc Int : 447 ms Accelerated Junctional rhythm with premature ventricular complexes or fusion complexes Rightward axis Low voltage QRS Cannot rule out Anterior infarct (cited on or before 01-APR-2018) Abnormal ECG When compared with ECG of 01-APR-2018 21:27, Junctional rhythm has replaced Sinus rhythm Confirmed by NANCY WILSON MD ([id number]) on 07/13/2023 1:35:01 AM Referred By: Electronically Signed By:NANCY WILSON MD Transcribed By: MUS Signed By Nancy Wilson MD 01/26 0135 Normal [facility] Eosinophils Auto (Bld) [#/Vo l]Ordered By: Nancy Wilson on 07-12-2023 Eosinophils (Bld) [#/Vol] 0.3 10*3/uL 0.0-0.45 [facility] Eosinophils/100 WBC Auto (Bl d)Ordered By: Nancy Wilson on 07-12-2023 Eosinophils/100 WBC (Bld) 3.3 % . [facility] Erythrocyte distribution wid th Auto (RBC) [Ratio]Ordered By: Nancy Wilson on 07-12-2023 Erythrocyte distribution width (RBC) [Ratio] 17.1 % 12.0-14.8 [facility] Globulin Calc (S) [Mass/Vol] Ordered By: Nancy Wilson on 07-12-2023 Globulin (S) [Mass/Vol] 3.1 g/dL [facility] Glucose [Mass/volume] in Ser um or PlasmaOrdered By: Nancy Wilson on 07-12-2023 Glucose [Mass/Vol] 302 mg/dL 70-100 [facility] Comment on above: ADA recommended refe rence rangeRandom Glucose Reference Range is dependent on time and content of last meal. Glucose of more than 200 mg/dL in a nonstressed, ambulatory subject supports the diagnosis of Diabetes Mellitus. Hematocrit Auto (Bld) [Volum e fraction]Ordered By: Nancy Wilson on 07-12-2023 Hematocrit (Bld) [Volume fraction] 32.7 % 38.8-50.0 [facility] Hemoglobin [Mass/volume] in BloodOrdered By: Nancy Wilson on 07-12-2023 Hemoglobin (Bld) [Mass/Vol] 10.6 g/dL 13.0-17.0 [facility] INR in Platelet poor plasma by Coagulation assayOrdered By: Nancy Wilson on 07-12-2023 INR Coag (PPP) [Relative time] 1.1 {INR} [facility] Comment on above: INR Therapeutic Rang e A) Pre- and Peroperative OAT started two weeks before surgery. NOT HIP SURGERY: 1.5 - 2.5 HIP SURGERY: 2 - 3B) Primary and secondary prevention of venous THROMBOSIS: 2 - 3C) Active venous thrombosis, pulmonary embolismand prevention of recurrent venous thrombosis: 2 - 3D) Prevention of arterial thromboembolismincluding patients with mechanical heart valves: 3 - 4.5 Leukocytes [#/volume] correc jorge for nucleated erythrocytes in Blood by Automated counOrdered By: Nancy Wilson on 07-12-2023 WBC corrected for nucl RBC Auto (Bld) [#/Vol] 9.5 10*3/uL 4.1-10.5 [facility] Lymphocytes Auto (Bld) [#/Vo l]Ordered By: Nancy Wilson on 07-12-2023 Lymphocytes (Bld) [#/Vol] 1.9 10*3/uL 1.00-4.8 [facility] Lymphocytes/100 WBC Auto (Bl d)Ordered By: Nancy Wilson on 07-12-2023 Lymphocytes/100 WBC (Bld) 20.0 % . [facility] MCH Auto (RBC) [Entitic mass ]Ordered By: Nancy Wilson on 07-12-2023 MCH (RBC) [Entitic mass] 22.8 pg 27.5-35.2 [facility] MCHC Auto (RBC) [Mass/Vol]Or dered By: Nancy Wilson on 07-12-2023 MCHC (RBC) [Mass/Vol] 32.4 g/dL 32.5-35.6 [facility] MCV Auto (RBC) [Entitic vol] Ordered By: Nancy Wilson on 07-12-2023 MCV (RBC) [Entitic vol] 70.6 fL 83.5-101 [facility] Monocyte distribution width [Entitic volume] in Blood by AutomatedOrdered By: Nancy Wilson on 07-12-2023 Monocyte distribution width Auto (Bld) [Entitic vol] 18.12 % 0.00-20.00 [facility] Monocytes Auto (Bld) [#/Vol] Ordered By: Nancy Wilson on 07-12-2023 Monocytes (Bld) [#/Vol] 1.0 10*3/uL 0.0-0.8 [facility] Monocytes/100 WBC Auto (Bld) Ordered By: Nancy Wilson on 07-12-2023 Monocytes/100 WBC (Bld) 10.2 % . [facility] Natriuretic peptide B [Mass/ Vol]Ordered By: Nancy Wilson on 07-12-2023 Natriuretic peptide B (Bld) [Mass/Vol] 34.0 pg/mL 5-100 [facility] Neutrophils Auto (Bld) [#/Vo l]Ordered By: Nancy Wilson on 07-12-2023 Neutrophils (Bld) [#/Vol] 6.2 10*3/uL 1.8-7.7 [facility] Neutrophils/100 WBC Auto (Bl d)Ordered By: Nancy Wilson on 07-12-2023 Neutrophils/100 WBC (Bld) 65.4 % . [facility] No Panel InformationOrdered By: Nancy Wilson on 07-12-2023 Estimated GFR (CKD-EPI) 42.789 mL/Min [facility] Creatinine Clearance (Chem 54.64 [facility] Nucleated erythrocytes [Pres ence] in Blood by Automated countOrdered By: Nancy Wilson on 07-12-2023 Nucleated RBC Auto Ql (Bld) 0.1 /100{WBC} 0-0.5 [facility] Partial Thromboplastin Timeo n 07-12-2023 aPTT Coag (Bld) [Time] 29.4 s Normal 25.1-36.5 [facility] Comment on above: Result Comment: A he matocrit value greater than 55% may lead to inaccurate results in coagulation testing. Patients having hematocrit values >55% require a special collection tube for coagulation studies. Please contact the laboratory at [phone] for redraw instructions. PERFORMED BY: [facility] [address] [place] [address] PATHOLOGIST [employer] MEMBER CLIFFORD LOBATO M.D. Performed By: #### B INTELLIGENCE SUPPORT OFFICER, CMP, HS TROP, CK, PTT, CBC, PT ####[facility] [id number] [place] [address] [facility] Platelet mean volume Auto (B ld) [Entitic vol]Ordered By: Nancy Wilson on 07-12-2023 Platelet mean volume (Bld) [Entitic vol] 9.1 fL 6.6-10.1 [facility] Platelets Auto (Bld) [#/Vol] Ordered By: Nancy Wilson on 07-12-2023 Platelets (Bld) [#/Vol] 233 10*3/uL 150-450 [facility] Potassium [Moles/volume] in Serum or PlasmaOrdered By: Nancy Wilson on 07-12-2023 Potassium [Moles/Vol] 3.9 mmol/L 3.5-5.1 [facility] Protein [Mass/volume] in Ser um or PlasmaOrdered By: Nancy Wilson on 07-12-2023 Protein [Mass/Vol] 7.0 g/dL 6.4-8.9 [facility] Prothrombin Time INRon 07-12 INR Coag (PPP) [Relative time] 1.1 {INR} Normal [facility] Comment on above: Result Comment: INR Therapeutic Range A) Pre- and Peroperative OAT started two weeks before surgery. NOT HIP SURGERY: 1.5 - 2.5 HIP SURGERY: 2 - 3 B) Primary and secondary prevention of venous THROMBOSIS: 2 - 3 C) Active venous thrombosis, pulmonary embolism and prevention of recurrent venous thrombosis: 2 - 3 D) Prevention of arterial thromboembolism including patients with mechanical heart valves: 3 - 4.5 Performed By: #### B INTELLIGENCE SUPPORT OFFICER, CMP, HS TROP, CK, PTT, CBC, PT ####[facility] [id number] [place] [address] [facility] PT Coag (PPP) [Time] 12.1 s Normal 9.0-12.9 [facility] Comment on above: Result Comment: A he matocrit value greater than 55% may lead to inaccurate results in coagulation testing. Patients having hematocrit values >55% require a special collection tube for coagulation studies. Please contact the laboratory at [phone] for redraw instructions. Performed By: #### B INTELLIGENCE SUPPORT OFFICER, CMP, HS TROP, CK, PTT, CBC, PT ####[facility] [id number] [place] [address] [facility] Prothrombin time (PT)Ordered By: Nancy Wilson on 07-12-2023 PT Coag (PPP) [Time] 12.1 s 9.0-12.9 [facility] Comment on above: A hematocrit value g reater than 55% may lead to inaccurate results in coagulation testing. Patients having hematocrit values >55% require a special collection tube for coagulation studies. Please contact the laboratory at [phone] for redraw instructions. RBC Auto (Bld) [#/Vol]Ordere d By: Nancy Wilson on 07-12-2023 RBC (Bld) [#/Vol] 4.63 10*6/uL 3.90-5.60 [facility] Serum or plasma albumin/glob ulin mass ratioOrdered By: Nancy Wilson on 07-12-2023 Albumin/Globulin [Mass ratio] 1.3 {ratio} [facility] Serum or plasma anion gap de terminationOrdered By: Nancy Wilson on 07-12-2023 Anion gap [Moles/Vol] 13.4 mmol/L 6.0-15.0 [facility] Sodium [Moles/volume] in Ser um or PlasmaOrdered By: Nancy Wilson on 07-12-2023 Sodium [Moles/Vol] 136 mmol/L 136-145 [facility] Troponin I High Sensitivityo n 07-12-2023 Troponin I High Sensitivity 4.6 pg/mL Normal 0.0-20.0 [facility] Comment on above: Result Comment: PERF ORMED BY: [place] [address] PATHOLOGIST [employer] MEMBER CLIFFORD LOBATO M.D. Performed By: #### B INTELLIGENCE SUPPORT OFFICER, CMP, HS TROP, CK, PTT, CBC, PT ####[facility] [id number] Troponin I.cardiac [Mass/vol ume] in Serum or Plasma by Detection limit <= 0.01 ng/Ordered By: Nancy Wilson on 07-12-2023 Troponin I.cardiac DL <= 0.01 ng/mL [Mass/Vol] 4.6 pg/mL 0.0-20.0 [facility] Urea nitrogen [Mass/volume] in Serum or PlasmaOrdered By: Nancy Wilson on 07-12-2023 Urea nitrogen [Mass/Vol] 16 mg/dL 7-25 [facility] WBC Auto (Bld) [#/Vol]Ordere d By: Nancy Wilson on 07-12-2023 WBC (Bld) [#/Vol] 9.5 10*3/uL 4.1-10.5 [facility] XR chest 1V portableon 07-12 XR chest 1V portable [place] [address] XRay Report Signed Patient: Solomon Feldman SR MR#: [id number] : 1965 Acct:[id number] Age/Sex: 57 / M ADM Date: 07/12/23 Loc: ER Room: Type: PRE ER Attending Dr: Copies to: Nancy Wilson MD Ordering Provider: Nancy Wilson MD Date of Service: 07/12/23 XR/XR chest 1V portable: Extremity Problem, Nontraumatic Plain film chest Single view HISTORY: Left arm and bilateral leg swelling. Shortness of breath COMPARISON: 07/27/2018 FINDINGS: SUPPORT DEVICES: None POSTSURGICAL CHANGES: None HEART: Within normal limits PULMONARY CHAPIS: Within normal limits MEDIASTINUM: Unremarkable LUNGS AND PLEURA: No acute lung process, pleural effusion or pneumothorax identified. Minor interstitial changes. BONY STRUCTURES: Intact ADDITIONAL FINDINGS None XR/XR chest 1V portable IMPRESSION: No acute process. Impression dictated by: Sudeep Lind M.D.07/12/2023 5:08 PM Dictation Location: [place] [address] Transcribed By: [facility] 07/12/231707 Dictated By: Sudeep Lind DO 07/12/231706 Signed By: 07/12/231707 [facility] Patient Educationon 06-02-20 23 Patient Education Urology Benign Prostatic Hyperplasia Benign prostatic hyperplasia (BPH) is an enlarged prostate gland that is caused by the normal aging process. The prostate may get bigger as a man gets older. The condition is not caused by cancer. The prostate is a walnut-sized gland that is involved in the production of semen. It is located in front of the rectum and below the bladder. The bladder stores urine. The urethra carries stored urine out of the body. An enlarged prostate can press on the urethra. This can make it harder to pass urine. The buildup of urine in the bladder can cause infection. Back pressure and infection may progress to bladder damage and kidney (renal) failure. What are the causes? This condition is part of the normal aging process. However, not all men develop problems from this condition. If the prostate enlarges away from the urethra, urine flow will not be blocked. If it enlarges toward the urethra and compresses it, there will be problems passing urine. What increases the risk? This condition is more likely to develop in men older than 50 years. What are the signs or symptoms? Symptoms of this condition include: ? Getting up often during the night to urinate. ? Needing to urinate frequently during the day. ? Difficulty starting urine flow. ? Decrease in size and strength of your urine stream. ? Leaking (dribbling) after urinating. ? Inability to pass urine. This needs immediate treatment. ? Inability to completely empty your bladder. ? Pain when you pass urine. This is more common if there is also an infection. ? Urinary tract infection (UTI). How is this diagnosed? This condition is diagnosed based on your medical history, a physical exam, and your symptoms. Tests will also be done, such as: ? A post-void bladder scan. This measures any amount of urine that may remain in your bladder after you finish urinating. ? A digital rectal exam. In a rectal exam, your health care provider checks your prostate by putting a lubricated, gloved finger into your rectum to feel the back of your prostate gland. This exam detects the size of your gland and any abnormal lumps or growths. ? An exam of your urine (urinalysis). ? A prostate specific antigen (PSA) screening. This is a blood test used to screen for prostate cancer. ? An ultrasound. This test uses sound waves to electronically produce a picture of your prostate gland. Your health care provider may refer you to a specialist in kidney and prostate diseases (urologist). How is this treated? Once symptoms begin, your health care provider will monitor your condition (active surveillance or watchful waiting). Treatment for this condition will depend on the severity of your condition. Treatment may include: ? Observation and yearly exams. This may be the only treatment needed if your condition and symptoms are mild. ? Medicines to relieve your symptoms, including: ? Medicines to shrink the prostate. ? Medicines to relax the muscle of the prostate. ? Surgery in severe cases. Surgery may include: ? Prostatectomy. In this procedure, the prostate tissue is removed completely through an open incision or with a laparoscope or robotics. ? Transurethral resection of the prostate (TURP). In this procedure, a tool is inserted through the opening at the tip of the penis (urethra). It is used to cut away tissue of the inner core of the prostate. The pieces are removed through the same opening of the penis. This removes the blockage. ? Transurethral incision (TUIP). In this procedure, small cuts are made in the prostate. This lessens the prostate's pressure on the urethra. ? Transurethral microwave thermotherapy (TUMT). This procedure uses microwaves to create heat. The heat destroys and removes a small amount of prostate tissue. ? Transurethral needle ablation (TUNA). This procedure uses radio frequencies to destroy and remove a small amount of prostate tissue. ? Interstitial laser coagulation (ILC). This procedure uses a laser to destroy and remove a small amount of prostate tissue. ? Transurethral electrovaporization (TUVP). This procedure uses electrodes to destroy and remove a small amount of prostate tissue. ? Prostatic urethral lift. This procedure inserts an implant to push the lobes of the prostate away from the urethra. Follow these instructions at home: ? Take xhhs-nhf-aovjsrd and prescription medicines only as told by your health care provider. ? Monitor your symptoms for any changes. Contact your health care provider with any changes. ? Avoid drinking large amounts of liquid before going to bed or out in public. ? Avoid or reduce how much caffeine or alcohol you drink. ? Give yourself time when you urinate. ? Keep all follow-up visits. This is important. Contact a health care provider if: ? You have unexplained back pain. ? Your symptoms do not get better with treatment. ? You develop side effects from the medicine (more content not included)... Normal [facility] Retail - Clinical Noteon Retail - Clinical Note [id number]#1.00TIFF [facility] Urology Office/Clinic Noteon 06-02-2023 Urology Office/Clinic Note Chief Complaint S/p to Cysto HPI Staff Sp to Cysto done @ [facility] on 02/14/23- Has not noticed any difference- Still painful, burning tender to the touch, urine has a smell to it Previous DX; urinary retention, gross hematuria, BPH, Orchitis is with him today PVR 31 Dysuria: pain and burning since cysto Incomplete bladder emptying: he can not tell Hematuria: _denies visible blood Frequency: every hour Urgency: yes Nocturia: 3x nightly Stream: yes hesitation, weak stream Leaking: yes Post void dripping: _yes Wearing pads/ Depends: _denies Urge incontinence: _yes Stress incontinence: denies Incontinence without Sensory Awareness: yes sometimes Abdominal pain: pain since Cysto Flank pain: _denies Sexual complaints: _denies History of Present Illness Tests reviewed: reviewed UA and path. I have reviewed the previous health record information and history for this patient from Dr. Rowe. I have reviewed and verified the staff HPI to be accurate for this encounter. There have been no associated fever, chills, flank pain, or blood in the urine. Denies any urinary infections since last encounter. Review of Systems PHQ Score Initial Depression Screen Score: 0 SCORE ROS - Provider Constitutional: denies weight loss, denies hot flashes. Eyes: denies eye problems. Gastrointestinal: denies nausea, denies vomiting. Cardiovascular: denies chest pain or angina. Integumentary: no dryness Musculoskeletal: denies musculoskeletal symptoms. ENMT: denies otolaryngeal symptoms. Respiratory: no shortness of breath. Heme/Lymph: denies easy bleeding tendency, denies easy bruising tendency. Psychiatric: no confusion, no anxiety. Genitourinary: See HPI. Physical Exam Vitals & Measurements T: 36.1 ?C(Temporal Artery) HR: 68(Peripheral) BP: 124/84 HT: 72 in HT: 182 cm WT: 94 kg WT: 206.8 lb BMI: 28.38 General Appearance: alert, no distress, well nourished, well developed male. Genitourinary: normal scrotum, normal testes, normal urethra, normal epididymis, normal vas deferens/spermatic cord. Flank Pain: none. Bladder: nonpalpable. 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 Hx of DM II. [1] 1. BPH with obstruction/lower urinary tract symptoms (N40.1: Benign prostatic hyperplasia with lower urinary tract symptoms) S/p cysto and UDS 02/14/23 - prostate is obstructed. UA today shows trace-intact blood and trace leuks. TURP 04/13/23. Path negative for malignancy. The pathology report was reviewed with the patient in detail today. There is no evidence of malignancy and no further evaluation of the tissue removed is planned. All questions were answered and the report discussed in terms that the patient could understand. Pt states since catheter has been removed he has a weak stream, dribbling. Unable to tell if he is emptying. PVR today 31 cc. Pt did record volumes within the first few weeks after TURP, when he was CIC. Has been a month since he last CIC. -Cont Flomax 0.4mg bid, call for refills 2. Urinary retention (R33.9: Retention of urine, unspecified) PVRs at prior OV ranged from 534-787 ml. [2] Pt understands DMII also exacerbates urinary sxs and decreased sensation of the bladder. Pt had 18 Fr coude cath changed 12/28/22. S/p cysto and UDS 02/14/23 - bladder is abnormal, moderate (2) trabeculation, cath cystitis noted on the floor. No b.t. High-grade trabeculation. Small open mouth diverticuli. Urodynamics shows a low flow, incomplete emptying and moderate pressures. Due to no improvement following TURP, pt to restart CIC to retrain pt's bladder. Pt to void in between cathing. -Start CIC 3x per day, supplies provided today -Record cath volumes -See #1 -Follow up in 1 month to review cath volumes 3. Gross hematuria (R31.0: Gross hematuria) Pt's called our office 12/20/22 due to seeing blood in pt's Garza bag, only lasted 24hrs. Has had recurrence of blood since December episode. Neg cysto 02/14/23. 4. Orchitis (N45.2: Orchitis) Pt started on Doxycycline 100 mg bid x 3 weeks per prior OV 11/23/22. No current issues. Follow-up With When Contact Information Yeyo ROWE MD, URL [address] [place] [id number]- Additional Instructions: 1 month w/ cath volumes Patient Education Benign Prostatic Hyperplasia I, Mattie Foster, personally scribed for Dr. Rowe on 06/02/2023 12:02:46. . Documentation recorded by the scribeMattie, accurately reflects the services(s) I performed and decisions made by me. Authenticated by Dr. Rowe on 06/02/2023 12:16:01. Problem List/Past Medical History Ongoing Arthritis Asthma BPH with obstruction/lower urinary tract symptoms COPD type A Fibromyalgia Gross hematuria Head ache Heart attack Heart disease Heart murmur Hyperlipidemia Orchitis Restless leg Smoker Urinary retention Historical CHF (congestive heart failure) (more content not included)... Normal [facility] Comment on above: Result Comment: Elec tronically Signed By: Yeyo ROWE MD\.br\Date and Time Signed: 06/02/23 12:16 EST\.br\Electronically Co-Signed By: Mattie Foster\Marybr\Date and Time Co-Signed: 06/02/23 12:04 EST Patient Educationon 05-03-20 Patient Education Normal [facility] Pathology Noteon 05-02-2023 Pathology Note [id number]#1.00TIFF Normal [facility] Lab Reportson 04-14-2023 Lab Reports [id number]#1.00TIFF Normal [facility] Operative Reporton Operative Report [id number] Normal [facility] Patient Correspondenceon Patient Correspondence [id number]#1.00TIFF Normal [facility] Lab Reportson 03-31-2023 Lab Reports [id number]#1.00TIFF Normal [facility] RAD - MISCon 03-31-2023 RAD - MISC [id number]#1.00TIFF Normal [facility] Patient Correspondenceon Patient Correspondence [id number]#1.00TIFF Normal [facility] Formson 03-23-2023 Forms [id number]#1.00TIFF [facility] A1C HEMOGLOBINon 03-15-2023 HbA1c (Bld) [Mass fraction] 7.5 % [employer] Other HbA1c (Bld) [Mass fraction]o n 03-15-2023 A1C HEMOGLOBIN [facility] Other Lab Reportson 03-09-2023 Lab Reports [id number]#1.00TIFF [facility] Consultation Noteon 02-28-20 Consultation Note [id number]#1.00CD:12 7 [facility] Consent for Procedure/Surger yon 02-15-2023 Consent for Procedure/Surgery [id number]#1.00CD:12 7 [facility] Office Visit (Cardiology)on 02-15-2023 Follow-up visit Diagnoses/Problems Assessed 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 resolved Coronary artery disease with other form of angina pectoris (414.00,413.9) (I25.118) Prior multivessel RCA PCI 2017 cardiac cath RCA patent stent, no left system disease. Jan 2023 MPI no ischemia; EF 55% Current daily activity 4 METS without concerning symptoms Hypertension, benign (401.1) (I10) optimal in office Hyperlipidemia (272.4) (E78.5) Intensity statin September 2022 HDL 21, LDL 38 Diabetes mellitus (250.00) (E11.9) On statin/ARB Reports most recent hemoglobin A1c 13 September 2022 hypertriglyceridemia Has had subsequent adjustments to diabetic regimen with plans for repeat labs PAD (peripheral artery disease) (443.9) (I73.9) LLE stent - no routine Vascular f/u Denies claudication Overweight with body mass index (BMI) of 28 to 28.9 in adult (278.02,V85.24) (E66.3,Z68.28) Reviewed the merits of healthy lifestyle choices on overall cardiovascular health. Orders Overweight with body mass index (BMI) of 28 to 28.9 in adult Healthy Weight Tips; Status:Complete; Done: [id number] Patient Instructions Please bring all medicines, vitamins, and herbal supplements with you when you come to the office. Prescriptions will not be filled unless you are compliant with your follow up appointments or have a follow up appointment scheduled as per instruction of your physician. Refills should be requested at the time of your visit. PLAN: Through informed decision making process incorporating patients unique circumstances, the following treatment plan will be initiated: 1. Prescription drug management of cardiovascular medication for efficacy, adherence to treatment, side effect assessment and polypharmacy. Current treatment clinically warranted and to continue with following modifications: - Ok to stop imdur and resume prn sildenafil - If you notice recurrent symptoms off imdur please let me know - Ok to hold ASA and plavix as requested 2. Return for follow-up; in the interim, contact the office if new symptoms arise. Dr. Inman in 9 months Chief Complaint Testing f/u: 'best I felt in a while' SOLOMON FELDMAN is being seen for a 1 month follow-up of chest pain, dyspnea and testing results. Patient presents to the office ambulatory with steady gait, is accompanied by his . Last evaluated in clinic by myself January 2023. At that time, patient presented with complaints of fatigue, dyspnea on exertion and chest pain. I added isosorbide and placed sildenafil on hold. A subsequent perfusion study showed low likelihood critical coronary artery disease LVEF 55%. Results reviewed with patient and . Patient presents to the office today reports not doing too bad . He has noted significant improvement in his dyspnea on exertion, and has noted no additional chest pain. He has started to increase his activity level doing light housework and yard work. He ambulated in from the parking lot without complaints. He would like to resume use of sildenafil and we discussed discontinuing long-acting nitrates in order to accommodate. He will monitor for recurrent symptoms of dyspnea on exertion or exertional chest pain that would indicate need for long-acting nitrates. Overall, both he and are pleased with results of perfusion study. Otherwise, prior reported dependent lower extremity edema has completely resolved with increased activity. On March 16, 2023 will be having TURP procedure, no contraindication to proceed from cardiovascular standpoint and okay to interrupt DAPT as requested. Secondary prevention: Recent hemoglobin A1c 11 with changes to diabetic regimen, he reports blood sugars are doing better and will be following with PCP for repeat hemoglobin A1c and triglycerides. He continues to be active with lifestyle changes for BMI reduction. Overall patient is pleased with current state of cardiovascular health. At this time there are no indications for additional cardiovascular testing or need for medication changes. History of Present Illness The patient states he has been generally doing well since the last visit. Comorbid Illnesses: diabetes mellitus, hypertension and hyperlipidemia. Symptoms: denies chest pain at rest, denies exertional chest pain, improved dyspnea, improved fatigue, denies exercise intolerance, denies palpitations, resolved edema, denies orthopnea, denies dizziness and denies orthostatic dizziness. Associated symptoms: no syncope. His symptoms do not limit his activities. Disease Monitoring: The patient has had a 5 pounds weight loss. Medications: the patient is adherent with his medication regimen. He denies medication side effects. Surgical History Problems History of Appendectomy History of Back surgery nerve ablation History of Cardiac catheterization with stent placement History of Carpal tunnel surgery History of Cataract surgery History of Complete colonoscopy Managed By: Sia HERRERA, (more content not included)... Normal [facility] Tobacco Screening.on 023 Fall risk assessment c) Not medically indicated -[facility] DO Work Phone: Tobacco use status CP b) No -[facility] 250 DO Work Phone: Tobacco Screening. Yes [facility] 250 DO Work Phone: Consent for Procedure/Surger yon 02-14-2023 Consent for Procedure/Surgery [id number]#1.00CD:1 27 [facility] Consent for Procedure/Surgery [id number]#1.00CD:1 27 [facility] Consent for Treatmenton 02-03 Consent for Treatment [id number]#1.00CD:12 7 [facility] IntraOperative Documentson 0 02-14-2023 IntraOperative Documents [id number]#1.00CD:1 27 [facility] IntraOperative Documents [id number]:1 27 [facility] Main OR Intraoperative Recor don 02-14-2023 Main OR Intraoperative Record IntraOp Document Type FTURO Summary Primary Physician: Yeyo ROWE MD Finalized Date/Time: 02/14/23 10:18:58 Pt. Name: SOLOMON FELDMAN SR/Sex: 1965 Male Med Rec #: [id number] Physician: Yeyo ROWE MD Financial #: [id number] Pt. Type: O Room/Bed: / Admit/Disch: 02/14/23 08:34:46 - Institution: Case Times FTURO Entry 1 Patient Times In Room 02/14/23 09:29:00 Out Room 02/14/23 09:49:00 Procedure Times Start 02/14/23 09:42:00 Stop 02/14/23 09:45:00 Anesthesia Times Last Modified By: Chandrika Martínez RN 02/14/23 09:45:24 Case Attendance FTURO Entry 1 Entry 2 Entry 3 Case Attendee SOLEDAD HERRERA, Yeyo Martínez RN, Chandrika Yin CST, Sheri Daniel Role Performed Surgeon - Primary Risk Assessment Consultant - Primary Scrub - Primary Time In 02/14/23 09:29:00 02/14/23 09:29:00 02/14/23 09:29:00 Time Out 02/14/23 09:49:00 02/14/23 09:49:00 02/14/23 09:49:00 Procedure CYSTOSCOPY LOCAL(.) CYSTOSCOPY LOCAL(.) CYSTOSCOPY LOCAL(.) Comments Last Modified By: Mauricio STERN, Chandrika Martínez RN, Chandrika Carrillo RN 02/14/23 09:45:25 02/14/23 09:45:25 02/14/23 09:45:25 Surgical Procedures FTURO Entry 1 Procedure Description Procedure CYSTOSCOPY LOCAL Modifiers . Surgeon Description CYSTOSCOPY Primary Procedure Yes Primary Surgeon Yeyo ROWE MD 02/14/23 09:42:00 Stop 02/14/23 09:45:00 Anesthesia Type Local Surgical Service Urology Wound Class 2 - Clean-Contaminated Last Modified By: Chandrika Martínez RN 02/14/23 09:45:17 General Case Data FTURO Pre-Care Text: Classifies surgical wound, implements aseptic technique, initiates traffic control Entry 1 Case Information OR URO 1 FT Case Level None Wound Class 2 - Clean-Contaminated Specialty Urology Preop Diagnosis BPH W/ OBSTRUCTION and Postop Same As Preop No INCOMPLETE EMPTYING Postop Diagnosis BPH W/ OBSTRUCTION and Outcomes Met? Yes INCOMPLETE EMPTYING Last Modified By: Chandrika Martínez RN 02/14/23 09:44:25 Post-Care Text: The patient is free from signs and symptoms of infection EU IntraOp - FTURO Pre-Care Text: Implements protective measures prior to operative or invasive procedure, confirms identity before the operative or invasive procedure, verifies operative procedure, surgical site, and laterality Entry 1 EU Perioperative Protocols Procedure(s) CYSTOSCOPY LOCAL(.) Patient Identity Birthday, ID Band Verified (select at Check, Patient least 2): Participation Consents / H and P HandP, Surgery/Procedure Operative Site N/A Verified Consent Marking Verified Surgical Site Yes Laterality Verified n/a Verified Procedure Verified Yes Correct Patient Yes Position Verified Availability Equipment, Medication Time Out Yeyo ROWE MD, Verified (If Participants Chandrika Martínez RN, Applicable) Sheri Yin CST Time Out Complete 02/14/23 09:40:00 Allergies Reviewed? Yes Allergies Reviewed Self/Patient With Body Position Supine Prep Area PENIS Prep Agents Betadine Solution Skin. Condition Unable to Visualize Additional None Specimens Collected Vitals - EU Blood Pressure 118/83 Pulse 93 bpm Respirations 16 br/min SPO2 96 % EBL 0 IandO - EU Total Intake 0 mL Total Output 0 mL Outcomes Met? Yes Last Modified By: Chandrika Martínez RN 02/14/23 09:42:20 Post-Care Text: The patient is free from signs and symptoms of injury caused by extraneous objects Urinary Catheter FTURO Pre-Care Text: Patient is prepped using sterile technique. Entry 1 Present Upon Arrival Yes Insertion Site Uretheral Discontinued? Yes When was the Immediately Discontinued catheter discontinued? DC'd By Chandrika Martínez RN Outcomes Met? Yes Last Modified By: Chandrika Martínez RN 02/14/23 10:18:51 Post-Care Text: The patient is free from signs of trauma. General Comments: EXISTING 18 FR CATHETER REMOVED PRIOR TO START OF PROCEDURE. LEENA VU Sign Out FTURO Entry 1 Before Patient Leaves OR Nurse verbally Yes Nurse verbally n/a confirms with the confirms with the team the name of team that the procedure(s) instrument, sponge, recorded and needle counts are correct (or N/A) Nurse verbally n/a Nurse verbally n/a confirms with the confirms with the team how the team whether there specimen is labeled are any equipment (including patient problems to be name), if applicable addressed Sign Out Complete 02/14/23 09:44:00 Last Modified By: Chandrika Martínez RN 02/14/23 09:44:44 Case Comments Finalized By: Chandrika Martínez RN Document Signatures Signed By: Chandrika Martínez RN 02/14/23 09:45 Chandrika Martínez RN 02/14/23 10:18 Normal [facility] Main OR Preoperative Recordo n 02-14-2023 Main OR Preoperative Record Holding Area Document Type FTURO Summary Primary Physician: Yeyo ROWE MD Finalized Date/Time: 02/14/23 09:01:37 Pt. Name: MATTEO CHRISTIAN SOLOMON Navarro./Sex: 1965 Male Med Rec #: [id number] Physician: Yeyo ROWE MD Financial #: [id number] Pt. Type: O Room/Bed: / Admit/Disch: 02/14/23 08:34:46 - Institution: Case Times Holding FTURO Pre-Care Text: Verifies consent for planned procedure, identifies individual values and wishes concerning care, includes family members in perioperative teaching Secures patient's records' belongings, and valuables, maintains patient's dignity and privacy, and maintains patient confidentiality Entry 1 In Holding 02/14/23 08:55:00 Outcomes Met? Yes Last Modified By: Sheri Bolivar RN 02/14/23 08:55:47 Post-Care Text: The patient participates in decisions affecting his or her perioperative plan of care The patient's right to privacy is maintained Surgery Checklist FTURO Entry 1 Patient Birthday, ID Band Procedure History and Physical, Identification: Check, Patient Verification: Surgical Consent, With Participation Patient NPO after Midnight: n/a Personal Items: Glasses, Jewelry Personal Items glasses; ring x 1 Limitations: up ad nadia Comment: Complaints of Pain: No Skin Integrity Warm, Dry Vitals - EU Blood Pressure 118/83 Pulse 93 bpm Respirations 16 br/min SPO2 96 % Additional None RN Reviewed Yes Specimens Collected Last Modified By: Sheri Bolivar RN 02/14/23 09:01:32 Finalized By: Sheri Bolivar RN Document Signatures Signed By: Sheri Bolivar RN 02/14/23 09:01 Normal [facility] Operative Reporton 3 Operative Report Patient: Joe FELDMAN SR CARLIE María Age: 57 years Sex: Male : 1965 Associated Diagnoses: None Author: Yeyo ROWE MD Procedure Operative Information Details: Date/ Time: 02/14/2023 09:51:00. Pre-Op Dx: BPH w/ LUTS - N40.1, Urinary Retention - R33.9, Incomplete Bladder Emptying - R39.14. Post-Op Dx: Same. Anesthesia Type: Local. Procedure: Local Cystoscopy. Complications: None. Risks/Benefits/Informed Consent: Surgical risks, benefits, details of the procedure have been explained to the patient, Full informed consent has been obtained. Intraoperative Information Prepped: Patient is brought back to the endoscopy suite, Patient is placed in supine position, Patient prepped in the usual fashion with Betadine solution, 2% Xylocaine Jelly is placed per Urethra, After waiting several minutes the Cystoscope is introduced. The Urethra is: Normal. The Prostatic Urethra is: Obstructed. The Bladder is: Abnormal, Trabeculated (Moderate (2), Cath cystitis noted on the floor. No bladder tumors. High-grade trabeculation. Small open mouth diverticuli.). The ureteral orifices: Show efflux of clear urine. Devices Implanted: None. Removal: Cystoscope is removed, The patient tolerated it well. Postoperative Information Discharge: Patient is discharged home with antibiotic coverage, Follow up arranged. Normal [facility] Comment on above: Result Comment: Elec tronically Signed By: SOLEDAD HERRERA, Yeyo Nolasco.br\Date and Time Signed: 02/14/23 09:52 EDT Patient Educationon 02-15-20 Patient Education Urology Transurethral Resection of the Prostate Transurethral resection of the prostate (TURP) is the removal, or resection, of part of the prostate tissue. This procedure is done to treat an enlarged prostate gland (benign prostatic hyperplasia). The goal of TURP is to remove enough prostate tissue to allow for a normal flow of urine. The procedure will allow you to empty your bladder more completely when you urinate so that you can urinate less often. In a transurethral resection, a thin telescope with a light, a camera, and an electric cutting edge (resectoscope) is passed through the urethra and into the prostate. The opening of the urethra is at the end of the penis. Tell a health care provider about: ? Any allergies you have. ? All medicines you are taking, including vitamins, herbs, eye drops, creams, and squj-vbp-qvlxoax medicines. ? Any problems you or family members have had with anesthetic medicines. ? Any bleeding problems you have. ? Any surgeries you have had. ? Any medical conditions you have. ? Any prostate infections you have had. What are the risks? Generally, this is a safe procedure. However, problems may occur, including: ? Infection. ? Bleeding. ? Allergic reactions to medicines. ? Blood in the urine (hematuria). ? Damage to nearby structures or organs. Other problems may occur, but they are rare. They include: ? Dry ejaculation, or having no semen come out during orgasm. ? Erectile dysfunction, or being unable to have or keep an erection. ? Scarring that leads to narrowing of the urethra. This narrowing may block the flow of urine. ? Inability to control when you urinate (incontinence). ? Deep vein thrombosis. This is a blood clot that can develop in your leg. ? TURP syndrome. This can happen when you lose too much sodium during or after the procedure. Some signs and symptoms of this condition include: ? Weakness. ? Headaches. ? Nausea or vomiting. ? Muscle cramping. What happens before the procedure? When to stop eating and drinking Follow instructions from your health care provider about what you may eat and drink before your procedure. These may include: ? 8 hours before your procedure ? Stop eating most foods. Do not eat meat, fried foods, or fatty foods. ? Eat only light foods, such as toast or crackers. ? All liquids are okay except energy drinks and alcohol. ? 6 hours before your procedure ? Stop eating. ? Drink only clear liquids, such as water, clear fruit juice, black coffee, plain tea, and sports drinks. ? Do not drink energy drinks or alcohol. ? 2 hours before your procedure ? Stop drinking all liquids. ? You may be allowed to take medicines with small sips of water. If you do not follow your health care provider's instructions, your procedure may be delayed or canceled. Medicines Ask your health care provider about: ? Changing or stopping your regular medicines. This is especially important if you are taking diabetes medicines or blood thinners. ? Taking medicines such as aspirin and ibuprofen. These medicines can thin your blood. Do not take these medicines unless your health care provider tells you to take them. ? Taking ihjn-pfg-opxswqe medicines, vitamins, herbs, and supplements. Surgery safety Ask your health care provider what steps will be taken to help prevent infection. These steps may include: ? Removing hair at the surgery site. ? Washing skin with a germ-killing soap. ? Taking antibiotic medicine. General instructions ? Do not use any products that contain nicotine or tobacco for at least 4 weeks before the procedure. These products include cigarettes, chewing tobacco, and vaping devices, such as e-cigarettes. If you need help quitting, ask your health care provider. ? If you will be going home right after the procedure, plan to have a responsible adult: ? Take you home from the hospital or clinic. You will not be allowed to drive. ? Care for you for the time you are told. What happens during the procedure? ? An IV will be inserted into one of your veins. ? You will be given one or more of the following: ? A medicine to help you relax (sedative). ? A medicine to make you fall asleep (general anesthetic). ? A medicine that is injected into your spine to numb the area below and slightly above the injection site (spinal anesthetic). ? Your legs will be placed in foot rests (stirrups) so that your legs are apart and your knees are bent. ? The resectoscope will be passed through your urethra to your prostate. ? Parts of your prostate will be resected using the cutting edge of the resectoscope. ? Fluid will be passed to rinse out the cut tissues (irrigation). ? The resectoscope will be removed. ? A small, thin tube (catheter) will be passed through your urethra and into your bladder. The catheter will drain urine into a bag outside of your body. The procedure may vary among health care (more content not included)... Normal [facility] Progress Note-Physicianon Progress Note-Physician Patient: SOLOMON FELDMAN SR Age: 57 years Sex: Male : 1965 Associated Diagnoses: None Author: SOLEDAD HERRERA, Yeyo Blum X this gentleman has BPH with LUTS and saleem urinary retention. He had urodynamics recently which showed a low flow, incomplete emptying and moderate pressures. He had cystoscopy today which showed a obstructing prostate and a by lobar fashion. The bladder showed a high-grade bladder damage with thick trabeculation and diffuse small mouth diverticuli. Review of Systems ROS reviewed as documented in chart Health Status Allergies: Allergic Reactions (Selected) Mild Latex- Rash and itching. Severity Not Documented Penicillin G benzathine- No reactions were documented. Penicillins- Anaphylactoid reaction. Current medications: Home Medications (26) Active Amaryl 2 mg Tab 2 mg = 1 tab(s), Oral, BID amitriptyline 100 mg oral tablet , Oral, Once a day (at bedtime) Aspirin 81 mg Tab-EC doxycycline hyclate 100 mg Cap 100 mg = 1 cap(s), Oral, Daily famotidine 40 mg Tab 40 mg = 1 tab(s), Oral, Once a day (at bedtime) fenofibrate 160 mg oral tablet 160 mg = 1 tab(s), Oral, Daily hydrochlorothiazide-valsa rtan 12.5 mg-160 mg Tab , Oral, Daily Imdur 60 mg ER Tab 60 mg = 1 tab(s), Oral, qAM Januvia 100 mg Tab , Oral, Daily Jardiance 10 mg oral tablet , Oral, qAM Lipitor 80 mg Tab 80 mg = 1 tab(s), Oral, Daily Lyrica 200 mg, Oral, TID metformin 1,000 mg, Oral, BID metoprolol 100 mg, BID NitroStat 0.4 mg Tab 0.4 mg = 1 tab(s), PRN, SubLingual, q5min [place] 325 mg-5 mg oral tablet 1 tab(s), PRN, Oral, q4hr Norvasc 5 mg Tab 5 mg = 1 tab(s), Oral, Daily Plavix 75 mg Tab 75 mg = 1 tab(s), Oral, Daily Prilosec , Oral, Daily ProAir HFA , Inhalation, q6hr Ranexa 1000 mg oral tablet, extended release 1,000 mg = 1 tab(s), Oral, BID Requip 1 mg, Oral, TID Spiriva 18 mcg Cap 18 mcg = 1 cap(s), Inhalation, Daily tamsulosin 0.4 mg Cap 0.4 mg = 1 cap(s), Oral, BID tizanidine 4 mg oral capsule , Oral, TID Trulicity Pen 1.5 mg/0.5 mL subcutaneous solution Problem list: All Problems Obesity / ICD-9-CM 278.00 / Possible Fibromyalgia / SNOMED CT [id number] / Confirmed Restless leg / ICD-9-CM 333.94 / Confirmed Arthritis / SNOMED CT [id number] / Confirmed Hyperlipidemia / SNOMED CT 12725786 / Confirmed Smoker / SNOMED CT [id number]-M [id number] / Confirmed Added secondary to documentation in Social History. Asthma / SNOMED CT 621423804 / Confirmed COPD type A / SNOMED CT 469849221 / Confirmed Head ache / SNOMED CT 48032599 / Confirmed Heart attack / SNOMED CT 55280080 / Confirmed Heart disease / SNOMED CT 21066401 / Confirmed Heart murmur / SNOMED CT 486455118 / Confirmed Urinary retention / SNOMED CT 993821672 / Confirmed BPH with obstruction/lower urinary tract symptoms / SNOMED CT 0755959609 / Confirmed Orchitis / SNOMED CT 119668483 / Confirmed Gross hematuria / SNOMED CT 514076573 / Confirmed Tobacco use / SNOMED CT [id number] 04588SB2SD6 / Confirmed Added secondary to social history documentation. Histories Past Medical History: Active Fibromyalgia ([id number]-[id number]- 9969671M93L1) Restless leg (333.94) Arthritis (63OW5192-4P0L-20J1-0C1V- EPR8S787A441) Hyperlipidemia (61420677) Resolved HTN [Hypertension] (401.9): Resolved. NIDDM (250.00): Resolved. GERD [Gastroesophageal reflux disease] (530.81): Resolved. CHF (congestive heart failure) (D3759151-9R7H-6E2V-3I40- T596676E1K00): Resolved. WI (myocardial infarction) (782Q8YAL-20F5-3T0J-3M65- 28487I43K4HR): Resolved. Family History: Diabetes mellitus Mother Heart disease Mother Alcoholism Brother Drug addiction Brother Acute myocardial infarction Mother Grandparent Procedure history: Bilateral Eye Surgery. Comments: 07/10/2014 17:25 Kati Causey RN bilateral cataracts with iol implants Bilateral Carpal Tunnel Surgery. cardiac stents. Appendectomy (808247293). Colonoscopy (899290814). Cataract extraction and insertion of intraocular lens (1462610468). Procedure on back (166781932). Social History Social & Psychosocial Habits Alcohol 01/16/2013 Risk Assessment: Denies Alcohol Use Substance Abuse 01/16/2013 Risk Assessment: Denies Substance Abuse Tobacco 01/16/2013 Tobacco Use: Current Type: Cigarettes Comment: 1 ppd - 01/16/2013 23:11 - Dominga LERMA CNP 01/30/2023 Tobacco Use: 10 or more cigarettes (1/ Smokeless tobacco use: Never Type: Cigarettes Ready to change: No Concerns about tobacco use in household: No . Objective He is resting comfortably and in no acute distress. Vitals are stable. Abdomen is soft and nontender. External genitalia are normal. Review / Management Impression: #1. This gentleman has BPH with LUTS and saleem urinary retention. He is desirous for a procedure such (more content not included)... Normal [facility] Comment on above: Result Comment: Elec tronically Signed By: SOLEDAD HERRERA, Yeyo Blum\.br\Date and Time Signed: 02/14/23 09:58 EDT Consent for Treatmenton 090 Consent for Treatment [id number]:12 7 [facility] Ambulatory Visit Summaryon 0 01-30-2023 Ambulatory Visit Summary MATTEO CHRISTIAN, SOLOMON Daniel :1965 Visit Date:01/30/2023 Ambulatory Visit Instructions Your Diagnosis Urinary retention Gross hematuria BPH with obstruction/lower urinary tract symptoms Orchitis Your Care Team Attending Physician - Yeyo ROWE MD Primary Care Physician - JENARO LYNCH DO This Is Your Medications List Contact prescribing physician if questions or concerns acetaminophen-hydrocodone ([place] 325 mg-5 mg oral tablet) albuterol (ProAir HFA) amitriptyline (amitriptyline 100 mg oral tablet) amlodipine (Norvasc 5 mg Tab) aspirin (Aspirin 81 mg Tab-EC) atorvastatin (Lipitor 80 mg Tab) clopidogrel (Plavix 75 mg Tab) dulaglutide (Trulicity Pen 1.5 mg/0.5 mL subcutaneous solution) empagliflozin (Jardiance 10 mg oral tablet) famotidine (famotidine 40 mg Tab) fenofibrate (fenofibrate 160 mg oral tablet) glimepiride (Amaryl 2 mg Tab) hydrochlorothiazide-valsa rtan (hydrochlorothiazide-vals jorge 12.5 mg-160 mg Tab) isosorbide mononitrate (Imdur 60 mg ER Tab) metformin metoprolol nitroglycerin (NitroStat 0.4 mg Tab) omeprazole (Prilosec) pregabalin (Lyrica) ranolazine (Ranexa 1000 mg oral tablet, extended release) ropinirole (Requip) sitagliptin (Januvia 100 mg Tab) tiotropium (Spiriva 18 mcg Cap) tizanidine (tizanidine 4 mg oral capsule) Procedures Performed Appendectomy, Bilateral Carpal Tunnel Surgery, Bilateral Eye Surgery, cardiac stents, Cataract extraction and insertion of intraocular lens, Colonoscopy, Procedure on back. Discharge Vitals Heart Rate (Peripheral) 68 Respiratory Rate 16 Blood Pressure 130/74 Height 182 cm Height 72 in Weight 94 kg Weight 206.8 lb BMI 28.38 What to do next You Need to Schedule the Following Appointments Follow Up with SOLEDAD HERRERA, ROSALIA Garcia When: Comments: sched cysto/uros Where: [facility] [address] , [place] [address] [phone] Medications What How Much When Instructions Unchanged acetaminophen-hydrocodone ([place]worth 325 mg-5 mg oral tablet) 1 Tablets By Mouth Every 4 hours as needed for for pain Contact prescribing physician if questions or concerns Unchanged albuterol (ProAir HFA) Inhalation Every 6 hours Contact prescribing physician if questions or concerns Unchanged amitriptyline (amitriptyline 100 mg oral tablet) By Mouth Once a day (at bedtime) Contact prescribing physician if questions or concerns Unchanged amlodipine (Norvasc 5 mg Tab) 1 Tablets By Mouth Every day Contact prescribing physician if questions or concerns Unchanged aspirin (Aspirin 81 mg Tab-EC) Contact prescribing physician if questions or concerns Unchanged atorvastatin (Lipitor 80 mg Tab) 1 Tablets By Mouth Every day Contact prescribing physician if questions or concerns Unchanged clopidogrel (Plavix 75 mg Tab) 1 Tablets By Mouth Every day Contact prescribing physician if questions or concerns Unchanged dulaglutide (Trulicity Pen 1.5 mg/ 0.5 mL subcutaneous solution) Contact prescribing physician if questions or concerns Unchanged empagliflozin (Jardiance 10 mg oral tablet) By Mouth Once a day (in the morning) Contact prescribing physician if questions or concerns Unchanged famotidine (famotidine 40 mg Tab) 1 Tablets By Mouth Once a day (at bedtime) Contact prescribing physician if questions or concerns Unchanged fenofibrate (fenofibrate 160 mg oral tablet) 1 Tablets By Mouth Every day Contact prescribing physician if questions or concerns Unchanged glimepiride (Amaryl 2 mg Tab) 1 Tablets By Mouth 2 times a day Contact prescribing physician if questions or concerns Unchanged hydrochlorothiazide-valsa rtan (hydrochlorothiazide-vals jorge 12.5 mg-160 mg Tab) By Mouth Every day Contact prescribing physician if questions or concerns Unchanged isosorbide mononitrate (Imdur 60 mg ER Tab) 1 Tablets By Mouth Once a day (in the morning) Contact prescribing physician if questions or concerns Unchanged metformin 1,000 Milligram By Mouth 2 times a day Contact prescribing physician if questions or concerns Unchanged metoprolol 100 Milligram 2 times a day Contact prescribing physician if questions or concerns Unchanged nitroglycerin (NitroStat 0.4 mg Tab) 1 Tablets Sublingual Every 5 minutes as needed for for chest pain Contact prescribing physician if questions or concerns Unchanged omeprazole (Prilosec) By Mouth Every day Contact prescribing physician if questions or concerns Unchanged pregabalin (Lyrica) 200 Milligram By Mouth 3 times a day Contact prescribing physician if questions or concerns Unchanged ranolazine (Ranexa 1000 mg oral tablet, extended release) 1 Tablets By Mouth 2 times a day Contact prescribing physician if questions or concerns Unchanged ropinirole (Requip) 1 Milligram By Mouth 3 times a day Contact prescribing physician if questions or concerns Unchanged sitagliptin (Januvia 100 mg Tab) By Mouth Every day Contact prescribing physician if questions or vivian (more content not included)... Normal [facility] Patient Educationon 01-31-20 23 Patient Education Urology Urodynamic Testing Urodynamic tests are done to determine how well your lower urinary tract is working. The lower urinary tract includes your bladder and the part of your body that drains urine from the bladder (urethra). When your kidneys filter your blood, urine is stored in your bladder until you feel the urge to urinate. Urination requires coordination between the nerves and muscles of your bladder and urethra. When your lower urinary tract is working well, you should be able to: ? Start urinating when your bladder is full. ? Empty your bladder completely. ? Control the flow of your urine. Why do I need urodynamic testing? You may need urodynamic testing to help find the cause of any of these problems: ? Leaking urine (incontinence). ? Problems starting or stopping your urine flow. ? Frequent or painful urination. ? Frequent urinary tract infections. ? Being unable to empty your bladder completely. ? Having strong urges to pass urine (urgency). ? Having a weak flow of urine. What are the risks? Generally, these tests are safe. However, some of the tests have risks, including: ? Discomfort. ? Frequent urge to urinate. ? Bleeding. ? Infection. ? Allergic reactions to medicines or dyes (contrast material). What happens before the test? ? Ask your health care provider about changing or stopping your regular medicines. This is especially important if you are taking diabetes medicines or blood thinners. ? You may be asked to avoid urinating before coming to the test so that you arrive with a full bladder. ? Tell a health care provider about: ? Any allergies you have. ? All medicines you are taking, including vitamins, herbs, eye drops, creams, and [id number] medicines. ? Whether you are or may be . What happens during the test? You may have various urodynamic tests. The tests may be done separately or may all be done during one visit. You may be given an antibiotic medicine before or after testing to help prevent infection. The types of tests that may be done include: Uroflowmetry This test measures how much urine you pass and how long it takes to pass. ? You will urinate into a certain type of toilet or device (flowmeter). ? The device will measure the volume and the time of your urine flow. ? These measurements will be sent to a computer that creates a graph of your urine flow. Postvoid residual measurement This test measures how much urine is left in your bladder after you urinate. ? The test may be done with ultrasound. In this method, sound waves and a computer will be used to create an image of your bladder. ? The test can also be done by inserting a thin, flexible tube (catheter) into your bladder after you urinate. The remaining urine will be removed through the catheter so it can be measured. ? Remaining urine will be measured in milliliters (mL). If you have more than 100 mL left in your bladder after you urinate, your bladder is not emptying as it should. Cystometric testing This test uses a type of bladder catheter that can measure pressure. ? You may be given a medicine to numb the area (local anesthetic). ? The area around the opening of your urethra will be cleaned. ? A urinary catheter will be passed through your urethra into your bladder and used to empty your bladder completely. ? A measuring catheter will be placed, and your bladder will be filled with warm, germ-free (sterile) water. ? Pressure measurements will be taken: ? As your bladder fills. ? When you feel the need to urinate. ? As your bladder is emptied. ? You may be asked to cough or bear down to check for leakage. ? In some cases, your bladder may be filled with a material that shows up on X-rays (contrast material) so that X-ray pictures can be taken during the test. Electromyogram This test measures the electrical activity of the nerves and muscles of your bladder and the opening of your urethra. ? Sticky patches (electrodes) will be placed near your rectum and urethra to measure electrical activity. ? The measurements will show how well your nerves are communicating with your muscles. What can I expect after the test? ? You should be able to go home right away and do your usual activities. ? You may be told to drink a glass of water every 30 minutes for the first 2 hours after testing. ? Taking a warm bath or using warm, wet cloths (warm compresses) may relieve any discomfort near your urethra. What do the results mean? Talk with your health care provider about what your results mean. Some common causes for abnormal results from urodynamic tests include: ? Enlarged prostate in men. ? Overactive bladder. ? Urinary tract infection. ? Nervous system diseases. ? Spinal cord damage. Questions to ask your health care provider Ask your health care provider, or the department that is doing the test: ? When will my results be (more content not included)... Normal [facility] Urology Office/Clinic Noteon 01-30-2023 Urology Office/Clinic Note Chief Complaint 2m HPI Staff 2m follow up to catheter insertion in office. DX: Urinary Retention, BPH, Orchitis *Doxycycline 100mg BID x3wks given at time of last encounter w/PRW. *pt finished script entirely. Pt's called our office 12/20/22 c/o red blood in garza bag. Pt advised to increase water intake & rest. Blood in bag lasted 24hrs. Catheter changed in our office 12/28/22. Red blood in catheter bag yesterday, cleared up this morning. Testicular has subsided since catheter was placed. Tenderness and discomfort at the urethra with catheter. History of Present Illness Tests reviewed: none I have reviewed the previous health record information and history for this patient from Dr. Rowe. I have reviewed and verified the staff HPI to be accurate for this encounter. There have been no associated fever, chills, flank pain, or blood in the urine. Denies any urinary infections since last encounter. Review of Systems PHQ Score Initial Depression Screen Score: 0 ROS - Provider Constitutional: denies weight loss, denies hot flashes. Eyes: denies eye problems. Gastrointestinal: denies nausea, denies vomiting. Cardiovascular: denies chest pain or angina. Integumentary: no dryness Musculoskeletal: denies musculoskeletal symptoms. ENMT: denies otolaryngeal symptoms. Respiratory: no shortness of breath. Heme/Lymph: denies easy bleeding tendency, denies easy bruising tendency. Psychiatric: no confusion, no anxiety. Genitourinary: See HPI. Physical Exam Vitals & Measurements HR: 68(Peripheral) RR: 16 BP: 130/74 HT: 72 in HT: 182 cm WT: 94 kg WT: 206.8 lb BMI: 28.38 General Appearance: alert, no distress, well nourished, well developed male. Genitourinary: normal scrotum, normal testes, normal urethra, normal epididymis, normal vas deferens/spermatic cord. Flank Pain: none. Bladder: nonpalpable. 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 Hx of DM II. [1] 1. Urinary retention (R33.9: Retention of urine, unspecified) PVRs at prior OV ranged from 534-787 ml. [2] Pt understands DMII also exacerbates urinary sxs and decreased sensation of the bladder. Pt had 18 Fr coude cath changed 12/28/22. Will schedule Cysto/UROS. The risks and benefits for cystoscopy and urodynamics have been discussed. The risks include bleeding, infection, and irritation of the bladder and urinary channel, among others. The patient, after being informed of procedural details and after questions have been answered, wishes to proceed. Full informed consent has been obtained. Will order Local anesthesia. 2. Gross hematuria (R31.0: Gross hematuria) Pt's called our office 12/20/22 due to seeing blood in pt's Garza bag, only lasted 24hrs. Pt had a recurrence of hematuria yesterday which has cleared this morning. 3. BPH with obstruction/lower urinary tract symptoms (N40.1: Benign prostatic hyperplasia with lower urinary tract symptoms) No UA given today due to Garza bag in place. Educated pt that an enlarged prostate can contribute to urination difficulties. 4. Orchitis (N45.2: Orchitis) Pt took Doxycycline 100 mg bid x 3 weeks per prior OV 11/23/22. Pt denies any pain at this time. Follow-up With When Contact Information SOLEDAD HERRERA, Yeyo Blum, URL [facility] [address], [place] [address] [phone] Additional Instructions: sched cysto/uros Patient Education Urodynamic Testing Cystoscopy I, Sharri Mora, personally scribed for Dr. Rowe on 01/30/2023 11:24:26. . Documentation recorded by the scribeSharri, accurately reflects the services(s) I performed and decisions made by me. Authenticated by Dr. Rowe on 01/30/2023 11:25:58. Problem List/Past Medical History Ongoing Arthritis Asthma BPH with obstruction/lower urinary tract symptoms COPD type A Fibromyalgia Gross hematuria Head ache Heart attack Heart disease Heart murmur Hyperlipidemia Orchitis Restless leg Smoker Urinary retention Historical CHF (congestive heart failure) GERD [Gastroesophageal reflux disease] HTN [Hypertension] WI (myocardial infarction) NIDDM Procedure/Surgical History Appendectomy, Bilateral Carpal Tunnel Surgery, Bilateral Eye Surgery, cardiac stents, Cataract extraction and insertion of intraocular lens, Colonoscopy, Procedure on back. Medications Amaryl 2 mg Tab, 2 mg= 1 tab(s), Oral, BID amitriptyline 100 mg oral tablet, Oral, Once a day (at bedtime) Aspirin 81 mg Tab-EC famotidine 40 mg Tab, 40 mg= 1 tab(s), Oral, Once a day (at bedtime) fenofibrate 160 mg oral tablet, 160 mg= 1 tab(s), Oral, Daily hydrochlorothiazide-valsa rtan 12.5 mg-160 mg Tab, Oral, Daily Imdur 60 mg ER Tab, 60 mg= 1 tab(s), Oral, qAM Januvia 100 mg Tab, Oral, Daily Jardiance 10 mg oral tablet, Oral, qAM Lipitor 80 mg Tab, 80 mg= 1 tab(s), Oral, Daily Lyrica, 200 mg, Oral, TID metformin, 1000 mg, Oral, BID metoprolol, 100 mg, BID (more content not included)... Normal [facility] Comment on above: Result Comment: Elec tronically Signed By: Saima Sutton\.br\Date and Time Signed: 01/30/23 11:38 EDT [facility] CARDIAC STRESS/REST INJE CTIONon 01-25-2023 [facility] CARDIAC STRESS/REST INJECTION Patient Name: SOLOMON FELDMAN STUDY: MYOCARDIAL PERFUSION STRESS TEST WITH EXERCISE CONVERTED TO LEXISCAN Performing facility: [facility], [address] [place] [address], [address] Provider: Dolores Feldman RN, SENIOR JAVA J2EE DEVELOPER PCP: Dr. Jenaro Lynch Supervising provider: Pascale Arnold MD, [facility] INDICATION: Anginal equivalent CAD; HISTORY: Gender: M; Age: 57 y/o ; Height: 182.88 cm; Weight: 97.2485757 kg. High Cholesterol; CAD; Diabetes; HTN; Palpitations; Chest Pain; Quit smoking unknown years ago. COMPARISON: Previous nuclear testing completed at [facility]. ACCESSION NUMBER(S): [id number]; [id number]; [id number] ORDERING CLINICIAN: DOLORES FELDMAN TECHNIQUE: ONE DAY protocol. Stress injection: Date: 01-25-23, 33.9 mCi of Myoview IV at 20 seconds after rapid injection of Lexiscan. Rest injection: Date: 01-25-23, 10.3 mCi of Myoview IV at rest. The patient had a rapid injection of 0.4mg of Lexiscan IV over 10 seconds. Imaging was performed by gated tomographic technique. STRESS TEST DATA: Resting heart rate was 98 BPM. Resting blood pressure was 124/78 mmHg. The patient exercised using a Antonio exercise protocol. .25 Minutes exercised. 66% of MPHR achieved for age. 2.30 METS achieved. Maximum heart rate was 109 BPM. Maximum blood pressure was 118/78 mmHg. DTS 0. TREADMILL TEST TERMINATED DUE TO: Patient fell like he was going to fall. Test converted to Lexiscan. TEST TERMINATED DUE TO: Protocol completed. FINDINGS: STRESS TEST RESULTS: Resting electrocardiogram revealed normal sinus rhythm. The patient had no significant ECG changes with maximal stress. The patient did not have chest pains/symptoms during the procedure. There was a normal recovery phase. There were no significant dysrhythmias. Patient did not achieve 85% MPHR and was only able to go for 25 seconds on treadmill and stopped due to imbalance so test was immediately converted to Lexiscan. LEXISCAN INFUSION: The patient had a rapid injection of 0.4 mg of Lexiscan IV over 10 seconds. Resting electrocardiogram revealed normal sinus rhythm. The patient had no significant ECG changes with maximal stress. The patient did not have chest pains/symptoms during the procedure. There was a normal recovery phase. There were no significant dysrhythmias. IMAGING RESULTS: Image quality was good. Rest and stress tomographic images were reviewed and revealed normal perfusion without evidence of ischemia, myocardial infarction, or left ventricular dilatation with stress. Overall left ventricular systolic function appeared to be normal without regional wall motion abnormalities. LV ejection fraction was 55 %. TID is 1.08 and is normal. There was no evidence of attenuation artifact. IMPRESSION: Normal Lexiscan Myoview cardiac perfusion imaging stress test. No evidence of ischemia or myocardial infarction by perfusion imaging. Normal left ventricular systolic function, ejection fraction 55 %. No exercise provoked significant ischemic ECG changes or chest pain symptoms. When compared to a study from 2019, no interval changes were seen in the perfusion study. 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 April 2019 MPI no ischemia Hypertension, benign (401.1) (I10) optimal in office Hyperlipidemia (272.4) (E78.5) Intensity statin September 2022 HDL 21, LDL 38 Diabetes mellitus (250.00) (E11.9) On statin/ARB Reports most recent hemoglobin A1c 11 PAD (peripheral artery disease) (443.9) (I73.9) LLE stent - no routine Vascular f/u Class 1 obesity with body mass index (BMI) of 30.0 to 30.9 in adult (278.00,V85.30) (E66.9,Z68.30) Orders Anginal equivalent, Coronary artery disease with other form of angina pectoris Start: Isosorbide Mononitrate ER 30 MG Oral Tablet Extended Release 24 Hour; TAKE 1 TABLET DAILY DIRECTED NM Cardiac Stress/Rest Nuclear Med Order; Status:Hold For - Scheduling; Requested for:11Jan2023; Radiologist to Determine Optimal Study : Y What are the patient's signs and symptoms? : THEODORE, fatigue Class 1 obesity with body mass index (BMI) of 30.0 to 30.9 in adult Healthy Weight Tips; Status:Complete; Done: 12Jan2023 Patient Instructions Please bring all medicines, vitamins, and herbal supplements with you when you come to the office. Prescriptions will not be filled unless you are compliant with your follow up appointments or have a follow up appointment scheduled as per instruction of your physician. Refills should be requested at the time of your visit. PLAN: Through informed decision making process incorporating patients unique circumstances, the following treatment plan will be initiated: 1. Prescription drug management of cardiovascular medication for efficacy, adherence to treatment, side effect assessment and polypharmacy. Current treatment clinically warranted and to continue with following modifications: - Imdur 30mg daily 2. Lexiscan MPI d/t chest pain, THEODORE, fatigue; no treadmill d/t fatigue, PAD, edema 3. Return for follow-up; in the interim, contact the office if new symptoms arise. 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 Patient presents to the office ambulatory with steady gait, is accompanied by his . Last evaluated in clinic Dr. Mark October 2021. Patient follows routinely with PCP. He reports approximately 6 weeks ago his bladder stopped working . There is evidence of post-renal ROEL with September creatinine of 1.8. He currently has a Garza catheter. Reportedly will be seeing urology in the near future. Current activity level is fairly sedentary by choice. Over the last 3 months he has noted real tired all the time. He has also noted progressive worsening dyspnea on exertion. 1 month ago he reports waking up from sleep with tightness across his chest and into his left arm, he took 3 nitroglycerin -has had no additional recurrence. He denies any exertional chest pain, has had no additional nitroglycerin use. He had mild dyspnea on exertion ambulated in from the parking lot. He reports his prior PCI symptom was being tired and out of breath . He reports a change in exercise capacity and functional tolerance. No unstable symptoms. September 2022 labs: Triglycerides were elevated, he reports hemoglobin A1c was 11 and adjustments have recently been made to treatment. Otherwise his HDL was 21, LDL 38. He reports prior left lower extremity stenting with no routine vascular follow-up. He denies any claudication symptoms. He has noted some increased bilateral lower extremity edema that is dependent in nature. Due to recurrent symptoms discussed options of perfusion study as initial ischemic evaluation. No unstable symptoms, has indwelling garza with unclear Urologic procedures planned and most recent Cr .1.8. He is in agreement to proceed. Will add long-acting nitrates. He will follow-up after testing. History of Present Illness The patient states he has been generally stable since the last visit. Comorbid Illnesses: diabetes mellitus, hypertension and hyperlipidemia. Symptoms: resolved chest pain at rest, resolved exertional chest pain, worsened dyspnea, worsened fatigue, worsened exercise intolerance, denies palpitations, stable edema, denies orthopnea, denies dizziness and denies orthostatic dizziness. Associated symptoms: no syncope. His symptoms do not limit his activities. Disease Monitoring: The patient has had a stable weight. Medications: the patient is adherent with his medication regimen. He denies medication side effects. Surgical History Problems History of Appendectomy History of Back surgery nerve ablation History of Cardiac catheterization with stent placement History of Carpal tunnel surgery History of Cataract surg (more content not included)... Normal [facility] Tobacco Screening.on 023 [facility] Work Phone: Tobacco use status [facility] b) No [facility] 600 DO Work Phone: Ambulatory Visit Summaryon 0 12-28-2022 Ambulatory Visit Summary MATTEO CHRISTIANSOLOMON :1965 Visit Date:12/28/2022 Ambulatory Visit Instructions Your Care Team Attending Physician - Yeyo ROWE MD Primary Care Physician - JENARO LYNCH DO This Is Your Medications List acetaminophen-hydrocodone ([place] 325 mg-5 mg oral tablet) albuterol (ProAir HFA) amitriptyline (amitriptyline 100 mg oral tablet) amlodipine (Norvasc 5 mg Tab) aspirin (Aspirin 81 mg Tab-EC) atorvastatin (Lipitor 80 mg Tab) clopidogrel (Plavix 75 mg Tab) empagliflozin (Jardiance 10 mg oral tablet) famotidine (famotidine 40 mg Tab) fenofibrate (fenofibrate 160 mg oral tablet) glimepiride (Amaryl 2 mg Tab) hydrochlorothiazide-valsa rtan (hydrochlorothiazide-vals jorge 12.5 mg-160 mg Tab) isosorbide mononitrate (Imdur 60 mg ER Tab) metformin metoprolol nitroglycerin (NitroStat 0.4 mg Tab) omeprazole (Prilosec) pregabalin (Lyrica) ranolazine (Ranexa 1000 mg oral tablet, extended release) ropinirole (Requip) sitagliptin (Januvia 100 mg Tab) tiotropium (Spiriva 18 mcg Cap) tizanidine (tizanidine 4 mg oral capsule) Procedures Performed Appendectomy, Bilateral Carpal Tunnel Surgery, Bilateral Eye Surgery, cardiac stents, Cataract extraction and insertion of intraocular lens, Colonoscopy, Procedure on back. What to do next Scheduled Follow-Up Appointments Monday 10:15 AM EDT With: Yeyo ROWE MD Where: [facility] Formson 11-24-2022 Forms [id number]:[id number] [facility] Screenson 11-24-2022 Screens [id number]:1 [id number] Normal [facility] Patient Educationon 11-24-19 23 Patient Education Urology Indwelling Urinary Catheter Insertion, Care After This sheet gives you information about how to care for yourself after your procedure. Your health care provider may also give you more specific instructions. If you have problems or questions, contact your health care provider. What can I expect after the procedure? After the procedure, it is common to have: ? Slight discomfort around your urethra where the catheter enters your body. Follow these instructions at home: General instructions ? Keep the drainage bag at or below the level of your bladder. By doing this, your urine can only drain out instead of going back into your body. ? Secure the catheter tubing and drainage bag to your leg or thigh to keep it from moving. ? Check the catheter tubing regularly to make sure there are no kinks or blockages. ? Take showers daily to keep the catheter clean. Do not take a bath. ? Do not pull on your catheter. ? Disconnect the tubing and drainage bag as little as possible. ? Empty the drainage bag every 2?4 hours, or more often if needed. Do not let the bag get completely full. ? Wash your hands with soap and water before and after touching the catheter, tubing, or drainage bag. ? Do not let the drainage bag or catheter tubing touch the floor. ? Drink enough fluids to keep your urine pale yellow, or as told by your health care provider. How to remove the catheter Remove the catheter only if told by your health care provider. Follow instructions from your health care provider about when and how to remove the catheter. For most catheters, you will need to take the following steps: 1. Prepare your supplies. You will need a: ? Syringe. This would be given to you by your health care provider. ? Towel. ? Wastebasket. 2. Empty the drainage bag if needed. 3. Wash your hands with soap and warm water. 4. Remove the tape that secures the catheter to your leg or thigh. 5. Get into a comfortable position, such as: ? Lying down with your head raised on pillows and your knees pointing to the ceiling. ? Sitting on a chair or the edge of a bed. 6. Place the towel under you to catch any spilled urine. 7. Put the syringe into the balloon port of the catheter. Use a firm push and twist motion to fit the syringe into the balloon port. 8. The water from the balloon will empty into the syringe. 9. Gently pull out the catheter once the balloon is empty. ? If the catheter doesn't slide easily, do not use force. Let your health care provider know that you are not able to remove the catheter. 10. Throw the used catheter and the syringe in the wastebasket. 11. Wipe any spilled urine or water with the towel. 12. Wash your hands with soap and warm water. Safety Let your health care provider know if: ? Your bladder is full, but you are not able to urinate. ? You have removed the catheter, but you are not able to urinate after 8 hours. Contact a health care provider if: ? Your urine: ? Looks cloudy. ? Has a bad smell. ? Stops flowing into the drainage bag. ? Your catheter: ? Gets clogged. ? Starts to leak. ? You feel pain or pressure in the bladder area. ? You have back pain. ? Your drainage bag or tubing looks dirty. Get help right away if: ? You have a fever or chills. ? You have severe pain in your back or your lower abdomen. ? You have warmth, redness, swelling, or pain in the urethra area. ? You notice blood in your urine. ? Your catheter gets pulled out. Summary ? Wash your hands with soap and water before and after touching the catheter, tubing, or drainage bag. ? Do not pull on your catheter or try to remove it. ? Keep the drainage bag at or below the level of your bladder, but do not let the drainage bag or catheter tubing touch the floor. ? Get help right away if you have a fever, chills, or any other signs of infection. This information is not intended to replace advice given to you by your health care provider. Make sure you discuss any questions you have with your health care provider. Document Revised: 08/11/2021 Document Reviewed: 05/07/2021 Elsevier Patient Education ? 2021 [employer] Marquise [facility] Urology Office/Clinic Noteon 06-21-2023 Urology Office/Clinic Note Chief Complaint Tenderness of testicles HPI Staff New Pt is here today due to tenderness in his testicles. Pt states his urine has a very bad odor. Pt states he feels like he is being kicked in his testicles and it sometimes brings him to tears. PVR today ranges between 534-787ml. Former DLS patient. S/P Lt epididymectomy w/scrotal exploration and removal of Lt scrotal hematuria done 02/08/17. Dysuria: denies pain and burning Incomplete bladder emptying: yes Hematuria: denies visible blood Frequency: 4x a day Urgency: yes Nocturia: 2x a night Stream: hesitant stream, very weak stream Leaking: yes Post void dripping: yes Wearing pads/ Depends: denies Urge incontinence: yes Stress incontinence: yes Incontinence without Sensory Awareness: denies Abdominal pain: denies Flank pain: Bilateral flank pain Sexual complaints: Pt states he is unable to get an erection History of Present Illness Tests reviewed: reviewed UA, PVRs. I have reviewed the previous health record information and history for this patient from Dr. Feldman. I have reviewed and verified the staff HPI to be accurate for this encounter. There have been no associated fever, chills, flank pain, or blood in the urine. Denies any urinary infections since last encounter. Review of Systems PHQ Score Initial Depression Screen Score: 0 ROS - Provider Constitutional: denies weight loss, denies hot flashes. Eyes: denies eye problems. Gastrointestinal: denies nausea, denies vomiting. Cardiovascular: denies chest pain or angina. Integumentary: no dryness Musculoskeletal: denies musculoskeletal symptoms. ENMT: denies otolaryngeal symptoms. Respiratory: no shortness of breath. Heme/Lymph: denies easy bleeding tendency, denies easy bruising tendency. Psychiatric: no confusion, no anxiety. Genitourinary: See HPI. Physical Exam Vitals & Measurements HR: 76(Peripheral) BP: 130/85 HT: 72 in HT: 182 cm WT: 95 kg WT: 209 lb BMI: 28.68 General Appearance: alert, no distress, well nourished, well developed male. Head: normocephalic . Eyes: normal orbit and globe. ENMT: normal examination of external ears. Chest: Lungs CTA, respirations non labored. Cardiovascular: regular rate and rhythm. Abdomen: soft, non distended, no tenderness, no mass or organomegaly, no hernia. Genitourinary: R side more tender than L. nothing abnormal. L epididymis not present. Flank Pain: none. Bladder: nonpalpable. Penis: normal shaft, normal glans. Lymph Nodes: unremarkable palpation of the cervical area. Skin: warm, dry, no bruising. Psychiatric: cooperative, affect appropriate for age, normal judgement, euthymic mood. Assessment/Plan Solomon is a 57 yo male new pt here due to pain in testicles. Former DLS patient. Hx of DM II. Pt here with family member today. 1. Urinary retention (R33.9: Retention of urine, unspecified) PVRs today range from 534-787 ml. Explained the testicular pain is caused from incomplete emptying. Educated pt that DMII also exacerbates urinary sxs and decreased sensation of the bladder. Discussed that pt will need garza placed for at least a month. 18 Fr coude placed wo complications. Numbing jelly was used. Cath was flushed appropriately to ensure proper placement. Follow up 1 month for cath change with nurse then in 2 mos with PRW or sooner if needed. Pt understands and agrees with plan. 2. BPH with obstruction/lower urinary tract symptoms (N40.1: Benign prostatic hyperplasia with lower urinary tract symptoms) See #1. IPSS 25. UA today negative for blood and infection. 3. Orchitis (N45.2: Orchitis) See #1. Testicle very tender, feels like he is being kicked. PE: R side more tender than L. nothing abnormal. L epididymis not present. -Start Doxycycline 100 mg bid x 3 weeks. Rx sent to [facility] [place]. Follow-up With When Contact Information SOLEDAD HERRERA, Yeyo Blum, URL [facility] [address] [place] [address]- Additional Instructions: 1 month for cath change with nurse then in 2 mos with PRW Patient Education Indwelling Urinary Catheter Insertion, Care After I, Lorie Leblanc, personally scribed for Dr. Rowe on 11/23/2022 12:45:42. . Documentation recorded by the scribe, Lorie Leblanc, accurately reflects the services(s) I performed and decisions made by me. Authenticated by Dr. Rowe on 11/23/2022 12:47:43. Problem List/Past Medical History Ongoing Arthritis Asthma BPH with obstruction/lower urinary tract symptoms COPD type A Fibromyalgia Head ache Heart attack Heart disease Heart murmur Hyperlipidemia Orchitis Restless leg Smoker Urinary retention Historical CHF (congestive heart failure) GERD [Gastroesophageal reflux disease] HTN [Hypertension] WI (myocardial infarction) NIDDM Procedure/Surgical History Appendectomy, Bilateral Carpal Tunnel Surgery, Bilateral Eye Surgery, cardiac stents, Ca (more content not included)... Normal [facility] Comment on above: Result Comment: Elec tronically Signed By: SOLEDAD HERRERA, Yeyo Blum\.br\Date and Time Signed: 11/23/22 12:47 EDT\.br\Electronically Co-Signed By: Lorie Leblanc\.br\Date and Time Co-Signed: 11/23/22 12:46 EDT A1C with Estimated Average G juliannacharlie 09-27-2022 Glucose [Mass/Vol] 246 mg/dL Normal [facility] Comment on above: Order Comment: Reaso n for Exam Type 2 diabetes mellitus with circulatory disorder Result Comment: PERF ORMED BY: [place] [address] PATHOLOGIST [employer]BER CLIFFORD LOBATO M.D. Performed By: #### A 1C [facility] eA #### [facility] [address] [place] [address] HbA1c (Bld) [Mass fraction] 10.2 % High 4.3-5.6 [facility] Comment on above: Order Comment: Reaso n for Exam Type 2 diabetes mellitus with circulatory disorder Result Comment: Incr eased risk for diabetes: 5.7 - 6.4 diabetes: >6.4 glycemic control for adults with diabetes: <7.0 Performed By: #### A 1C WT eA #### [facility] [address] [place] [address] Alanine aminotransferase [En zymatic activity/volume] in Serum or PlasmaOrdered By: Jenaro Lynch on 09-27-2022 ALT [Catalytic activity/Vol] 15 U/L 7-52 [facility] Albumin [Mass/volume] in Ser um or Plasma by Bromocresol green (BCG) dye binding methoOrdered By: Jenaro Lynch on 09-27-2022 Albumin BCG dye [Mass/Vol] 4.1 g/dL 3.5-5.7 [facility] Alkaline phosphatase [Enzyma tic activity/volume] in Serum or PlasmaOrdered By: Jenaro Lynch on 09-27-2022 ALP [Catalytic activity/Vol] 116 U/L 34-104 [facility] Aspartate aminotransferase [ Enzymatic activity/volume] in Serum or PlasmaOrdered By: Jenaro Lynch on 09-27-2022 AST [Catalytic activity/Vol] 15 U/L 13-39 [facility] Basophils Auto (Bld) [#/Vol] Ordered By: Jenaro Lynch on 09-27-2022 Basophils (Bld) [#/Vol] 0.1 10*3/uL 0.0-0.2 [facility] Basophils/100 WBC Auto (Bld) Ordered By: Jenaro Lynch on 09-27-2022 Basophils/100 WBC (Bld) 1.1 % . [facility] Bilirubin.total [Mass/volume ] in Serum or PlasmaOrdered By: Jenaro Lynch on 09-27-2022 Bilirubin [Mass/Vol] 0.4 mg/dL 0.3-1.0 [facility] Calcium [Mass/volume] in Ser um or PlasmaOrdered By: Jenaro Lynch on 09-27-2022 Calcium [Mass/Vol] 8.8 mg/dL 8.6-10.3 [facility] Carbon dioxide, total [Moles /volume] in Serum or PlasmaOrdered By: Jenaro Lynch on 09-27-2022 CO2 [Moles/Vol] 27.2 mmol/L 21.0-31.0 [facility] Chloride [Moles/volume] in S ilia or PlasmaOrdered By: Jenaro Lynch on 09-27-2022 Chloride [Moles/Vol] 99 mmol/L 98-107 [facility] Cholesterol [Mass/volume] in Serum or PlasmaOrdered By: Jenaro Lynch on 09-27-2022 Cholesterol [Mass/Vol] 104 mg/dL 140-200 [facility] Comment on above: Chol less than 200 m g/dl low riskChol 201-239 mg/dl borderline riskChol 240 mg/dl and greater high risk Cholesterol in LDL Calc [Mas s/Vol]Ordered By: Jenaro Lynch on 09-27-2022 Cholesterol in LDL [Mass/Vol] TNP [facility] Comment on above: Test not performed Cholesterol in LDL [Mass/vol ume] in Serum or PlasmaOrdered By: Jenaro Lynch on 09-27-2022 Cholesterol in LDL [Mass/Vol] 38 mg/dL 0-100 [facility] Comment on above: LDL ATP III CLASSIFI CATIONLDL less than 100 mg/dL OptimalLDL 100-129 mg/dL Near or above optimalLDL 130-159 mg/dL Borderline highLDL 160-189 mg/dL HighLDL greater than 189 mg/dL Very high Cholesterol in VLDL Calc [Ma ss/Vol]Ordered By: Jenaro Lynch on 09-27-2022 Cholesterol in VLDL [Mass/Vol] 99 mg/dL [facility] Complete Blood Count Auto Di ffon 09-27-2022 Basophils (Bld) [#/Vol] 0.1 10*3/uL Normal 0.0-0.2 [facility] Comment on above: Order Comment: Reaso n for Exam Hyperlipidemia;Type 2 diabetes mellitus with circulatory dis Result Comment: PERF ORMED BY: [place] [address] PATHOLOGIST [employer] CLIFFORD LOBATO M.D. Performed By: #### C BC #### [facility] [address] [place] [address] [place] Basophils/100 WBC (Bld) 1.1 % Normal . [facility] Comment on above: Order Comment: Reaso n for Exam Hyperlipidemia;Type 2 diabetes mellitus with circulatory dis Performed By: #### C BC #### [facility] [address] [place] [address] [place] Eosinophils (Bld) [#/Vol] 0.7 10*3/uL High 0.0-0.45 [facility] Comment on above: Order Comment: Reaso n for Exam Hyperlipidemia;Type 2 diabetes mellitus with circulatory dis Performed By: #### C BC #### [facility] [address] [place] [address] Eosinophils/100 WBC (Bld) 5.9 % Normal . [facility] Comment on above: Order Comment: Reaso n for Exam Hyperlipidemia;Type 2 diabetes mellitus with circulatory dis Performed By: #### C BC #### [facility] [address] Erythrocyte distribution width (RBC) [Ratio] 16.0 % High 12.0-14.8 [facility] Comment on above: Order Comment: Reaso n for Exam Hyperlipidemia;Type 2 diabetes mellitus with circulatory dis Performed By: #### C BC #### [address] Hematocrit (Bld) [Volume fraction] 41.0 % Normal 38.8-50.0 [facility] Comment on above: Order Comment: Reaso n for Exam Hyperlipidemia;Type 2 diabetes mellitus with circulatory dis Performed By: #### C BC #### [address] Hemoglobin (Bld) [Mass/Vol] 13.2 g/dL Normal 13.0-17.0 [facility] Comment on above: Order Comment: Reaso n for Exam Hyperlipidemia;Type 2 diabetes mellitus with circulatory dis Performed By: #### C BC #### [address] Lymphocytes (Bld) [#/Vol] 2.3 10*3/uL Normal 1.00-4.8 [facility] Comment on above: Order Comment: Reaso n for Exam Hyperlipidemia;Type 2 diabetes mellitus with circulatory dis Performed By: #### C BC #### [place] [address] [place] Lymphocytes/100 WBC (Bld) 18.2 % Normal . [facility] Comment on above: Order Comment: Reaso n for Exam Hyperlipidemia;Type 2 diabetes mellitus with circulatory dis Performed By: #### C BC #### [address] MCH (RBC) [Entitic mass] 23.9 pg Low 27.5-35.2 [facility] Comment on above: Order Comment: Reaso n for Exam Hyperlipidemia;Type 2 diabetes mellitus with circulatory dis Performed By: #### C BC #### [facility] [address] [place] [address] [place] MCV (RBC) [Entitic vol] 74.3 fL Low 83.5-101 [facility] Comment on above: Order Comment: Reaso n for Exam Hyperlipidemia;Type 2 diabetes mellitus with circulatory dis Performed By: #### C BC #### [facility] [address] Mean Corpuscular HGB Conc 32.2 g/dL Low 32.5-35.6 [facility] Comment on above: Order Comment: Reaso n for Exam Hyperlipidemia;Type 2 diabetes mellitus with circulatory dis Performed By: #### C BC #### [place] [address] [place] Monocytes (Bld) [#/Vol] 1.0 10*3/uL High 0.0-0.8 [facility] Comment on above: Order Comment: Reaso n for Exam Hyperlipidemia;Type 2 diabetes mellitus with circulatory dis Performed By: #### C BC #### [facility] [address] [place] [address] [place] Monocytes/100 WBC (Bld) 7.9 % Normal . [facility] Comment on above: Order Comment: Reaso n for Exam Hyperlipidemia;Type 2 diabetes mellitus with circulatory dis Performed By: #### C BC #### [place] [address] [place] Neutrophils (Bld) [#/Vol] 8.3 10*3/uL High 1.8-7.7 [facility] Comment on above: Order Comment: Reaso n for Exam Hyperlipidemia;Type 2 diabetes mellitus with circulatory dis Performed By: #### C BC #### [facility] [address] [place] [address] [place] Neutrophils/100 WBC (Bld) 66.9 % Normal . [facility] Comment on above: Order Comment: Reaso n for Exam Hyperlipidemia;Type 2 diabetes mellitus with circulatory dis Performed By: #### C BC #### [facility] [address] [place] [address] [place] NRBC% 0.1 /100{WBC} Normal 0-0.5 [facility] Comment on above: Order Comment: Reaso n for Exam Hyperlipidemia;Type 2 diabetes mellitus with circulatory dis Performed By: #### C BC #### [facility] [address] Platelet mean volume (Bld) [Entitic vol] 9.1 fL Normal 6.6-10.1 [facility] Comment on above: Order Comment: Reaso n for Exam Hyperlipidemia;Type 2 diabetes mellitus with circulatory dis Performed By: #### C BC #### [facility] [address] Platelets (Bld) [#/Vol] 209 10*3/uL Normal 150-450 [facility] Comment on above: Order Comment: Reaso n for Exam Hyperlipidemia;Type 2 diabetes mellitus with circulatory dis Performed By: #### C BC #### [address] RBC (Bld) [#/Vol] 5.52 10*6/uL Normal 3.90-5.60 [facility] Comment on above: Order Comment: Reaso n for Exam Hyperlipidemia;Type 2 diabetes mellitus with circulatory dis Performed By: #### C BC #### [address] WBC (Bld) [#/Vol] 12.4 10*3/uL High 4.1-10.5 [facility] Comment on above: Order Comment: Reaso n for Exam Hyperlipidemia;Type 2 diabetes mellitus with circulatory dis Performed By: #### C BC #### [address] Comprehensive Metabolic Pane bárbara 09-27-2022 Albumin [Mass/Vol] 4.1 g/dL Normal 3.5-5.7 [facility] Comment on above: Order Comment: Reaso n for Exam Hyperlipidemia;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 Reason for Exam Gout Performed By: #### T SH3, LDLD, CMP, URIC, LIPID #### [address] Albumin/Globulin [Mass ratio] 1.4 {ratio} Normal [facility] Comment on above: Order Comment: Reaso n for Exam Hyperlipidemia;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 Reason for Exam Gout Performed By: #### T SH3, LDLD, CMP, URIC, LIPID #### [facility] [address] ALP [Catalytic activity/Vol] 116 U/L High 34-104 [facility] Comment on above: Order Comment: Reaso n for Exam Hyperlipidemia;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 Reason for Exam Gout Performed By: #### T SH3, LDLD, CMP, URIC, LIPID #### [facility] [address] ALT [Catalytic activity/Vol] 15 U/L Normal 7-52 [facility] Comment on above: Order Comment: Reaso n for Exam Hyperlipidemia;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 Reason for Exam Gout Performed By: #### T SH3, LDLD, CMP, URIC, LIPID #### [facility] [address] Anion gap [Moles/Vol] 14.1 mmol/L Normal 6.0-15.0 [facility] Comment on above: Order Comment: Reaso n for Exam Hyperlipidemia;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 Reason for Exam Gout Performed By: #### T SH3, LDLD, CMP, URIC, LIPID #### [facility] [address] [place] [id number] [place] AST [Catalytic activity/Vol] 15 U/L Normal 13-39 [facility] Comment on above: Order Comment: Reaso n for Exam Hyperlipidemia;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 Reason for Exam Gout Performed By: #### T SH3, LDLD, CMP, URIC, LIPID #### [facility] [address] [place] [id number] [place] Bilirubin [Mass/Vol] 0.4 mg/dL Normal 0.3-1.0 [facility] Comment on above: Order Comment: Reaso n for Exam Hyperlipidemia;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 Reason for Exam Gout Performed By: #### T SH3, LDLD, CMP, URIC, LIPID #### [facility] [address] Calcium [Mass/Vol] 8.8 mg/dL Normal 8.6-10.3 [facility] Comment on above: Order Comment: Reaso n for Exam Hyperlipidemia;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 Reason for Exam Gout Performed By: #### T SH3, LDLD, CMP, URIC, LIPID #### [facility] [address] [place] [address] [place] Chloride [Moles/Vol] 99 mmol/L Normal 98-107 [facility] Comment on above: Order Comment: Reaso n for Exam Hyperlipidemia;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 Reason for Exam Gout Performed By: #### T SH3, LDLD, CMP, URIC, LIPID #### [facility] [address] CO2 [Moles/Vol] 27.2 mmol/L Normal 21.0-31.0 [facility] Comment on above: Order Comment: Reaso n for Exam Hyperlipidemia;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 Reason for Exam Gout Performed By: #### T SH3, LDLD, CMP, URIC, LIPID #### [facility] [address] Creatinine [Mass/Vol] 1.84 mg/dL High 0.70-1.30 [facility] Comment on above: Order Comment: Reaso n for Exam Hyperlipidemia;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 Reason for Exam Gout Performed By: #### T SH3, LDLD, CMP, URIC, LIPID #### [facility] [address] [place] [address] [place] GFR/1.73 sq M.predicted MDRD (S/P/Bld) [Vol rate/Area] 42.232 mL/min/{1.73_m2} Normal [facility] Comment on above: Order Comment: Reaso n for Exam Hyperlipidemia;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 Reason for Exam Gout Performed By: #### T SH3, LDLD, CMP, URIC, LIPID #### [facility] [address] [place] [address] [place] Globulin (S) [Mass/Vol] 2.9 g/dL Normal [facility] Comment on above: Order Comment: Reaso n for Exam Hyperlipidemia;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 Reason for Exam Gout Performed By: #### T SH3, LDLD, CMP, URIC, LIPID #### [facility] [address] [place] [id number] [place] Glucose [Mass/Vol] 225 mg/dL High 70-100 [facility] Comment on above: Order Comment: Reaso n for Exam Hyperlipidemia;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 Reason for Exam Gout Result Comment: [facility] Glucose Reference Range is dependent on time and content of last meal. Glucose of more than 200 mg/dL in a nonstressed, ambulatory subject supports the diagnosis of Diabetes Mellitus. ADA recommended reference range Performed By: #### T SH3, LDLD, CMP, URIC, LIPID #### [facility] [address] [place] [address] [place] Potassium [Moles/Vol] 4.3 mmol/L Normal 3.5-5.1 [facility] Comment on above: Order Comment: Reaso n for Exam Hyperlipidemia;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 Reason for Exam Gout Performed By: #### T SH3, LDLD, CMP, URIC, LIPID #### [facility] [address] [place] [address] [place] Protein [Mass/Vol] 7.0 g/dL Normal 6.4-8.9 [facility] Comment on above: Order Comment: Reaso n for Exam Hyperlipidemia;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 Reason for Exam Gout Performed By: #### T SH3, LDLD, CMP, URIC, LIPID #### [facility] [address] [place] [id number] [place] Sodium [Moles/Vol] 136 mmol/L Normal 136-145 [facility] Comment on above: Order Comment: Reaso n for Exam Hyperlipidemia;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 Reason for Exam Gout Performed By: #### T SH3, LDLD, CMP, URIC, LIPID #### [facility] [address] [place] [id number] [place] Urea nitrogen [Mass/Vol] 15 mg/dL Normal 7-25 [facility] Comment on above: Order Comment: Reaso n for Exam Hyperlipidemia;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 Reason for Exam Gout Performed By: #### T SH3, LDLD, CMP, URIC, LIPID #### [facility] [address] Creatinine [Mass/volume] in Serum or PlasmaOrdered By: Jenaro Lynch on 09-27-2022 Creatinine [Mass/Vol] 1.84 mg/dL 0.70-1.30 [facility] Eosinophils Auto (Bld) [#/Vo l]Ordered By: Jeanro Lynch on 09-27-2022 Eosinophils (Bld) [#/Vol] 0.7 10*3/uL 0.0-0.45 [facility] Eosinophils/100 WBC Auto (Bl d)Ordered By: Jenaro Lynch on 09-27-2022 Eosinophils/100 WBC (Bld) 5.9 % . [facility] Erythrocyte distribution wid th Auto (RBC) [Ratio]Ordered By: Jenaro Lynch on 09-27-2022 Erythrocyte distribution width (RBC) [Ratio] 16.0 % 12.0-14.8 [facility] Globulin Calc (S) [Mass/Vol] Ordered By: Jenaro Lynch on 09-27-2022 Globulin (S) [Mass/Vol] 2.9 g/dL [facility] Glucose [Mass/volume] in Ser um or PlasmaOrdered By: Jenaro Lynch on 09-27-2022 Glucose [Mass/Vol] 225 mg/dL 70-100 [facility] Comment on above: ADA recommended refe rence rangeRandom Glucose Reference Range is dependent on time and content of last meal. Glucose of more than 200 mg/dL in a nonstressed, ambulatory subject supports the diagnosis of Diabetes Mellitus. Hematocrit Auto (Bld) [Volum e fraction]Ordered By: Jenaro Lynch on 09-27-2022 Hematocrit (Bld) [Volume fraction] 41.0 % 38.8-50.0 [facility] Hemoglobin [Mass/volume] in BloodOrdered By: Jenaro Lynch on 09-27-2022 Hemoglobin (Bld) [Mass/Vol] 13.2 g/dL 13.0-17.0 [facility] LDL Cholesterol Measuredon 0 09-27-2022 LDL Cholesterol Measured 38 mg/dL Normal 0-100 [facility] Comment on above: Order Comment: Reaso n for Exam Hyperlipidemia;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 Reason for Exam Gout Result Comment: LDL ATP III CLASSIFICATION LDL less than 100 mg/dL Optimal LDL 100-129 mg/dL Near or above optimal LDL 130-159 mg/dL Borderline high LDL 160-189 mg/dL High LDL greater than 189 mg/dL Very high Performed By: #### T SH3, LDLD, CMP, URIC, LIPID ####[facility] [id number] [place] [address] [facility] Leukocytes [#/volume] correc jorge for nucleated erythrocytes in Blood by Automated counOrdered By: Jenaro Lynch on 09-27-2022 WBC corrected for nucl RBC Auto (Bld) [#/Vol] 12.4 10*3/uL 4.1-10.5 [facility] Lipid Panelon 09-27-2022 Cholesterol [Mass/Vol] 104 mg/dL Low 140-200 [facility] Comment on above: Order Comment: Reaso n for Exam Hyperlipidemia;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 Reason for Exam Gout Result Comment: Chol less than 200 mg/dl low risk Chol 201-239 mg/dl borderline risk Chol 240 mg/dl and greater high risk Performed By: #### T SH3, LDLD, CMP, URIC, LIPID #### [facility] [address] [place] [address] [place] Cholesterol in HDL [Mass/Vol] 21 mg/dL Low 29-71 [facility] Comment on above: Order Comment: Reaso n for Exam Hyperlipidemia;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 Reason for Exam Gout Result Comment: HDL CHOL ATP-III CLASSIFICATION Cardiovascular Risk HDL > or equal to 60 mg/dL LOW HDL < 40 mg/dL HIGH Performed By: #### T SH3, LDLD, CMP, URIC, LIPID #### [facility] [address] [place] [address] [place] Cholesterol.total/Chol esterol in HDL [Mass ratio] 5.0 {ratio} Normal <5.0 [facility] Comment on above: Order Comment: Reaso n for Exam Hyperlipidemia;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 Reason for Exam Gout Performed By: #### T SH3, LDLD, CMP, URIC, LIPID #### [facility] [address] LDL Cholesterol,Calculated Not performed Normal 0-100 [facility] Comment on above: Order Comment: Reaso n for Exam Hyperlipidemia;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 Reason for Exam Gout Performed By: #### T SH3, LDLD, CMP, URIC, LIPID #### [facility] [address] Triglyceride w/Reflex 497 mg/dL High 0-149 [facility] Comment on above: Order Comment: Reaso n for Exam Hyperlipidemia;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 Reason for Exam Gout Result Comment: TRIG ATP III CLASSIFICATION TRIG less than 150 mg/dL Normal TRIG 150-199 mg/dL Borderline high TRIG 200-500 mg/dL High TRIG greater than 500 mg/dL Very high Standard traceable to the Center for Disease Conrtrol and Prevention (CDC) test method. If the triglyceride result is greater than 400, LDLC and related calculations cannot be calculated and resulted. Performed By: #### T SH3, LDLD, CMP, URIC, LIPID #### [facility] [address] VLDL CHOLESTEROL 99 mg/dL Normal [facility] Comment on above: Order Comment: Reaso n for Exam Hyperlipidemia;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 Reason for Exam Gout Performed By: #### T SH3, LDLD, CMP, URIC, LIPID #### [facility] [address] Lymphocytes Auto (Bld) [#/Vo l]Ordered By: Jenaro Lynch on 09-27-2022 Lymphocytes (Bld) [#/Vol] 2.3 10*3/uL 1.00-4.8 [facility] Lymphocytes/100 WBC Auto (Bl d)Ordered By: Jenaro Lynch on 09-27-2022 Lymphocytes/100 WBC (Bld) 18.2 % . [facility] MCH Auto (RBC) [Entitic mass ]Ordered By: Jenaro Lynch on 09-27-2022 MCH (RBC) [Entitic mass] 23.9 pg 27.5-35.2 [facility] MCHC Auto (RBC) [Mass/Vol]Or dered By: Jenaro Lynch on 09-27-2022 MCHC (RBC) [Mass/Vol] 32.2 g/dL 32.5-35.6 [facility] MCV Auto (RBC) [Entitic vol] Ordered By: Jenaro Lynch on 09-27-2022 MCV (RBC) [Entitic vol] 74.3 fL 83.5-101 [facility] Monocytes Auto (Bld) [#/Vol] Ordered By: Jenaro Lynch on 09-27-2022 Monocytes (Bld) [#/Vol] 1.0 10*3/uL 0.0-0.8 [facility] Monocytes/100 WBC Auto (Bld) Ordered By: Jenaro Lynch on 09-27-2022 Monocytes/100 WBC (Bld) 7.9 % . [facility] Neutrophils Auto (Bld) [#/Vo l]Ordered By: Jenaro Lynch on 09-27-2022 Neutrophils (Bld) [#/Vol] 8.3 10*3/uL 1.8-7.7 [facility] Neutrophils/100 WBC Auto (Bl d)Ordered By: Jenaro Lynch on 09-27-2022 Neutrophils/100 WBC (Bld) 66.9 % . [facility] No Panel InformationOrdered By: Jenaro Lynch on 09-27-2022 Estimated GFR (CKD-EPI) 42.232 mL/Min [facility] Creatinine Clearance (Chem N/A [facility] Nucleated erythrocytes [Pres ence] in Blood by Automated countOrdered By: Jenaro Lynch on 09-27-2022 Nucleated RBC Auto Ql (Bld) 0.1 /100{WBC} 0-0.5 [facility] Platelet mean volume Auto (B ld) [Entitic vol]Ordered By: Jenaro Lynch on 09-27-2022 Platelet mean volume (Bld) [Entitic vol] 9.1 fL 6.6-10.1 [facility] Platelets Auto (Bld) [#/Vol] Ordered By: Jenaro Lynch on 09-27-2022 Platelets (Bld) [#/Vol] 209 10*3/uL 150-450 [facility] Potassium [Moles/volume] in Serum or PlasmaOrdered By: Jenaro Lynch on 09-27-2022 Potassium [Moles/Vol] 4.3 mmol/L 3.5-5.1 [facility] Protein [Mass/volume] in Ser um or PlasmaOrdered By: Jenaro Lynch on 09-27-2022 Protein [Mass/Vol] 7.0 g/dL 6.4-8.9 [facility] RBC Auto (Bld) [#/Vol]Ordere d By: Jenaro Lynch on 09-27-2022 RBC (Bld) [#/Vol] 5.52 10*6/uL 3.90-5.60 [facility] Serum or plasma albumin/glob ulin mass ratioOrdered By: Jenaro Lynch on 09-27-2022 Albumin/Globulin [Mass ratio] 1.4 {ratio} [facility] Serum or plasma anion gap de terminationOrdered By: Jenaro Lynch on 09-27-2022 Anion gap [Moles/Vol] 14.1 mmol/L 6.0-15.0 [facility] Serum or plasma high density lipoprotein (HDL) cholesterol measurementOrdered By: Jenaro Lynch on 09-27-2022 Cholesterol in HDL [Mass/Vol] 21 mg/dL 29-71 [facility] Comment on above: HDL CHOL ATP-III CLA SSIFICATION Cardiovascular RiskHDL > or equal to 60 mg/dL LOWHDL < 40 mg/dL HIGH Serum or plasma total choles terol/high density lipoprotein (HDL) cholesterol mass ratOrdered By: Jenaro Lynch on 09-27-2022 Cholesterol.total/Chol esterol in HDL [Mass ratio] 5.0 {ratio} <5.0 [facility] Sodium [Moles/volume] in Ser um or PlasmaOrdered By: Jenaro Lynch on 09-27-2022 Sodium [Moles/Vol] 136 mmol/L 136-145 [facility] Thyroid Stimulating Hormoneo n 09-27-2022 TSH Qn 3.62 m[IU]/L Normal 0.45-5.33 [facility] Comment on above: Order Comment: Reaso n for Exam Hyperlipidemia;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 Reason for Exam Gout Result Comment: PERF ORMED BY: [facility] [address] [place] [address] PATHOLOGIST [employer] CLIFFORD LOBATO M.D. Performed By: #### T SH3, LDLD, CMP, URIC, LIPID #### [facility] [address] Order Comment: Reaso n for Exam Hyperlipidemia;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 Reason for Exam Gout Performed By: #### T SH3, LDLD, CMP, URIC, LIPID ####[facility] [address] Thyrotropin [Units/volume] i n Serum or PlasmaOrdered By: Jenaro Lynch on 09-27-2022 TSH Qn 3.62 m[IU]/L 0.45-5.33 [facility] Triglyceride [Mass/volume] i n Serum or PlasmaOrdered By: Jenaro Lynch on 09-27-2022 Triglyceride [Mass/Vol] 497 mg/dL 0-149 [facility] Comment on above: If the triglyceride result is greater than 400, LDLC and related calculations cannot be calculated and resulted.TRIG ATP III CLASSIFICATIONTRIG less than 150 mg/dL NormalTRIG 150-199 mg/dL Borderline highTRIG 200-500 mg/dL High TRIG greater than 500 mg/dL Very highStandard traceable to the Center for Disease Conrtrol and Prevention (CDC) test method. Urate [Mass/volume] in Serum or PlasmaOrdered By: Jenaro Lynch on 09-27-2022 Urate [Mass/Vol] 6.2 mg/dL 2.4-7.6 [facility] Urea nitrogen [Mass/volume] in Serum or PlasmaOrdered By: Jenaro Lynch on 09-27-2022 Urea nitrogen [Mass/Vol] 15 mg/dL 12-27 [facility] Uric Acidon 09-27-2022 Urate [Mass/Vol] 6.2 mg/dL Normal 2.4-7.6 [facility] Comment on above: Order Comment: Reaso n for Exam Hyperlipidemia;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 Reason for Exam Gout Performed By: #### T SH3, LDLD, CMP, URIC, LIPID #### [facility] [address] [place] [id number] [facility] WBC Auto (Bld) [#/Vol]Ordere d By: Jenaro Lynch on 09-27-2022 WBC (Bld) [#/Vol] 12.4 10*3/uL 4.1-10.5 [facility] MR head/brain wo conon 09-03 MR head/brain wo con [facility] [place] [address] [place] [address] MRI Report Signed Patient: Solomon Feldman SR MR#: [id number] : 1965 Acct:[id number] Age/Sex: 57 / M ADM Date: 09/02/22 Loc: MR Room: Type: [facility] Attending Dr: Shana Mclaughlin PA-C Copies to: Shana Mclaughlin PA-C Ordering Provider: Shana Mclaughlin PA-C Date of Service: 09/02/22 MR/MR head/brain wo con: R51.9 EXAMINATION: MRI OF THE BRAIN WITHOUT CONTRAST CLINICAL HISTORY: Headaches for 4 months. COMPARISON: MRI brain 10/24/2013 TECHNIQUE: Multiecho, multiplanar imaging of the brain was performed without enhancement. Findings: No evidence of restriction diffusion is an diffusion-weighted imaging. No evidence of blood products are seen on GRE imaging. Cortical atrophy with mild chronic microvascular ischemic changes are noted. Midbrain, ac, medulla and cerebellum all appear unremarkable. Intraorbital contents appear unremarkable. MR/MR head/brain wo con IMPRESSION: NO ACUTE INTRACRANIAL PROCESS. CORTICAL ATROPHY WITH MILD CHRONIC MICROVASCULAR ISCHEMIC CHANGES. Impression dictated by: Negro Marks Jr., D.OMary09/03/2022 8:37 AM Dictation Location: [facility]15 Transcribed By: BOB 09/03/2237 Dictated By: Negro Marks Jr, DO 09/03/2230 Signed By: 09/03/2237 Normal [facility] A1C HEMOGLOBINon 02-15-2022 HbA1c (Bld) [Mass fraction] % [employer] Other HbA1c (Bld) [Mass fraction]o n 02-15-2022 A1C HEMOGLOBIN [employer] Other Tobacco Screening.on 022 Adult depression screening assessment No [facility] [facility] [address] DO Work Phone: Tobacco use status [facility] b) No [facility] [facility] DO Work Phone: A1C HEMOGLOBINon 07-27-2021 HbA1c (Bld) [Mass fraction] 11.8 % [employer] Other HbA1c (Bld) [Mass fraction]o n 07-27-2021 A1C HEMOGLOBIN [employer] Other Vital Signs Date Time Vital Sign Value Performing Clinician Facility 07-12-2023 18:03-0500 Diastolic blood pressure 73 mm[Hg] DO Jenaro Fraustos Work Phone: [facility] 07-12-2023 18:03-0500 Heart rate 76 /min DO Jenaro Jetts Work Phone: [facility] 07-12-2023 18:03-0500 Respiratory rate 20 /min DO Jenaro Kuns Work Phone: [facility] 07-12-2023 18:03-0500 SaO2% (BldA) [Mass fraction] 98 % DO Jenaro Jetts Work Phone: [facility] 07-12-2023 18:03-0500 Systolic blood pressure 125 mm[Hg] DO Jenaro Kuns Work Phone: [facility] 07-12-2023 16:15-0500 Body height 182.88 cm DO Jenaro Kuns Work Phone: [facility] 07-12-2023 16:15-0500 Body temperature 98.9 [degF] DO Jenaro Jetts Work Phone: [facility] 07-12-2023 16:15-0500 Body weight 99.25 kg DO Jenaro Rory Work Phone: [facility] 06-02-2023 10:56-0500 Blood Pressure Location Yeyo ROWE [facility] 06-02-2023 10:56-0500 Body temperature 96.98 [degF] Yeyo ROWE [facility] 06-02-2023 10:56-0500 Diastolic blood pressure 84 mm[Hg] Yeyo ORWE [facility] 06-02-2023 10:56-0500 Heart rate 68 /min Yeyo ROWE [facility] 06-02-2023 10:56-0500 Systolic blood pressure 124 mm[Hg] Yeyo ROWE [facility] 04-06-2023 13:15-0400 Body height 180.34 cm Jenaro Lynch Other [employer] Other 04-06-2023 13:15-0400 Body mass index (BMI) [Ratio] 29.43 kg/m2 Jenaro Lynch Other [employer] Other 04-06-2023 13:15-0400 Body weight 95.71 kg Jenaro Lynch Other [employer] Other 04-06-2023 13:15-0400 Diastolic blood pressure 70 mm[Hg] Jenaro Lynch Other [employer] Other 04-06-2023 13:15-0400 Respiratory rate 18 /min Jenaro Lynch Other [employer] Other 04-06-2023 13:15-0400 SaO2% (BldA) [Mass fraction] 97 % Jenaro Lynch Other [employer] Other 04-06-2023 13:15-0400 Systolic blood pressure 100 mm[Hg] Jenaro Lynch Other [employer] Other 03-15-2023 08:30-0400 Body height 180.34 cm Jeanro Lynch Other [employer] Other 03-15-2023 08:30-0400 Body mass index (BMI) [Ratio] 29.01 kg/m2 Jenaro Lynch Other [employer] Other 03-15-2023 08:30-0400 Body weight 94.35 kg Jenaro Lynch Other [employer] Other 03-15-2023 08:30-0400 Diastolic blood pressure 62 mm[Hg] Jenaro Lynch Other [employer] Other 03-15-2023 08:30-0400 Respiratory rate 16 /min Jenaro Lynch Other [employer] Other 03-15-2023 08:30-0400 SaO2% (BldA) [Mass fraction] 97 % Jenaro Lynch Other [employer] Other 03-15-2023 08:30-0400 Systolic blood pressure 88 mm[Hg] Jenaro Lynch Other [employer] Other 02-15-2023 10:04-0400 Body height 182.88 cm Jenaro Lynch Work Phone: [facility] 250 DO Work Phone: 02-15-2023 10:04-0400 Body mass index (BMI) [Ratio] 28.62 kg/m2 Jenaro Lynch Work Phone: [facility] 250 DO Work Phone: 02-15-2023 10:04-0400 Body surface area Derived from formula 2.18 m2 Jenaro Lynch Work Phone: [facility] 250 DO Work Phone: 02-15-2023 10:04-0400 Body weight 95.71 kg Jenaro Lynch Work Phone: [facility] 250 DO Work Phone: 02-15-2023 10:04-0400 Diastolic blood pressure 70 mm[Hg] Jenaro Lynch Work Phone: [facility] 250 DO Work Phone: 02-15-2023 10:04-0400 Heart rate 76 /min Jenaro Lynch Work Phone: [facility] 250 DO Work Phone: 02-15-2023 10:04-0400 Systolic blood pressure 102 mm[Hg] Jenaro Lynch Work Phone: [facility] 250 DO Work Phone: 01-30-2023 10:23-0400 Blood Pressure Location Yeyo ROWE [facility] 01-30-2023 10:23-0400 Diastolic blood pressure 74 mm[Hg] Yeyo ROWE [facility] 01-30-2023 10:23-0400 Heart rate 68 /min Yeyo ROWE [facility] 01-30-2023 10:23-0400 Respiratory rate 16 /min Yeyo ROWE [facility] 01-30-2023 10:23-0400 Systolic blood pressure 130 mm[Hg] Yeyo ROWE [facility] 01-11-2023 15:08-0400 Body height 180.34 cm Jenaro Lynch Work Phone: [facility] 600 DO Work Phone: 01-11-2023 15:08-0400 Body mass index (BMI) [Ratio] 30.13 kg/m2 Jenaro Lynch Work Phone: [facility] 600 DO Work Phone: 01-11-2023 15:08-0400 Body surface area Derived from formula 2.18 m2 Jenaro Lynch Work Phone: [facility] [employer] 600 DO Work Phone: 01-11-2023 15:08-0400 Body weight 97.98 kg Jenaro Lynch Work Phone: [facility] 600 DO Work Phone: 01-11-2023 15:08-0400 Diastolic blood pressure 86 mm[Hg] Jenaro Lynch Work Phone: [facility] 600 DO Work Phone: 01-11-2023 15:08-0400 Heart rate 74 /min Jenaro Lynch Work Phone: [facility] 600 DO Work Phone: 01-11-2023 15:08-0400 Systolic blood pressure 122 mm[Hg] Jenaro Lynch Work Phone: [phone] [place], [place] [address] 600 DO Work Phone: 12-01-2022 12:45-0400 Body height 180.34 cm eJnaro Lynch Other [facility] Other 12-01-2022 12:45-0400 Body mass index (BMI) [Ratio] 29.73 kg/m2 Jenaro Lynch Other [facility] Other 12-01-2022 12:45-0400 Body weight 96.71 kg Jenaro yLnch Other [facility] Other 12-01-2022 12:45-0400 Diastolic blood pressure 70 mm[Hg] Jenaro Lynch Other [facility] Other 12-01-2022 12:45-0400 Respiratory rate 18 /min Jenaro Lynch Other [facility] Other 12-01-2022 12:45-0400 SaO2% (BldA) [Mass fraction] 94 % Jenaro Lynch Other [employer] Other 12-01-2022 12:45-0400 Systolic blood pressure 122 mm[Hg] Jenaro Lynch Other [employer] Other 11-23-2022 11:38-0400 Blood Pressure Location Yeyo ROWE [facility] 11-23-2022 11:38-0400 Diastolic blood pressure 85 mm[Hg] Yeyo ROWE [facility] 11-23-2022 11:38-0400 Heart rate 76 /min Yeyo ROWE [facility] 11-23-2022 11:38-0400 Systolic blood pressure 130 mm[Hg] Yeyo ROWE [facility] 07-04-2022 10:30-0500 Body height 180.34 cm Jenaro Lynch Other [employer] Other 07-04-2022 10:30-0500 Body mass index (BMI) [Ratio] 29.43 kg/m2 Jenaro Lynch Other [employer] Other 07-04-2022 10:30-0500 Body weight 95.71 kg Jenaro Lynch Other [employer] Other 07-04-2022 10:30-0500 Diastolic blood pressure 86 mm[Hg] Jenaro Lynch Other [employer] Other 07-04-2022 10:30-0500 Respiratory rate 16 /min Jenaro Lynch Other [employer] Other 07-04-2022 10:30-0500 Systolic blood pressure 146 mm[Hg] Jenaro Lynch Other [employer] Other 02-15-2022 13:45-0400 Body height 180.34 cm Jenaro Lynch Other [employer] Other 02-15-2022 13:45-0400 Body mass index (BMI) [Ratio] 30.12 kg/m2 Jenaro Lynch Other [employer] Other 02-15-2022 13:45-0400 Body weight 97.98 kg Jenaro Lynch Other [employer] Other 02-15-2022 13:45-0400 Diastolic blood pressure 62 mm[Hg] Jenaro Lynch Other [facility] Other 02-15-2022 13:45-0400 Respiratory rate 16 /min Jenaro Jettjoe Other [employer] Other 02-15-2022 13:45-0400 SaO2% (BldA) [Mass fraction] 96 % Jenaro Lynch Other [facility] Other 02-15-2022 13:45-0400 Systolic blood pressure 100 mm[Hg] Jenaro Lynch Other [facility] Other 10-26-2021 10:01-0400 Body height 180.34 cm Jenaro Guerra Rory [facility] Phone[facility] [email or web address] 250 DO Work Phone: 10-26-2021 10:01-0400 Body mass index (BMI) [Ratio] 29.99 kg/m2 Jenaro Guerra Rory Work Phone: [facility] [email or web address] 250 DO Work Phone: 10-26-2021 10:01-0400 Body surface area Derived from formula 2.17 m2 Jenaro Guerra Rory Work Phone: [facility] [employer] 250 DO Work Phone: 10-26-2021 10:01-0400 Body weight 97.52 kg Jenaro Fraustojoe Work Phone: [facility] [email or web address] 250 DO Work Phone: 10-26-2021 10:01-0400 Diastolic blood pressure 70 mm[Hg] Jenaro Fraustojoe Work Phone: [facility] [email or web address] 250 DO Work Phone: 10-26-2021 10:01-0400 Heart rate 68 /min Jenaro Lynch Work Phone: [facility] [employer] 250 DO Work Phone: 10-26-2021 10:01-0400 Systolic blood pressure 104 mm[Hg] Jenaro Lynch Work Phone: [facility] [employer] 250 DO Work Phone: 10-19-2021 12:20-0400 Body height 180.34 cm Amina Kinseys Other [employer] Other 10-19-2021 12:20-0400 Body mass index (BMI) [Ratio] 30.65 kg/m2 [employer]a [employer] Other [employer] Other 10-19-2021 12:20-0400 Body temperature 96.8 [degF] Azjuan Kinseys Other [employer] Other 10-19-2021 12:20-0400 Body weight 99.7 kg Azjuan Kinseys Other [employer] Other 10-19-2021 12:20-0400 Diastolic blood pressure 71 mm[Hg] [employer] Other [employer] Other 10-19-2021 12:20-0400 Respiratory rate 18 /min [employer] Other [employer] Other 10-19-2021 12:20-0400 SaO2% (BldA) [Mass fraction] 98 % Azjuan Bakhous Other [employer] Other 10-19-2021 12:20-0400 Systolic blood pressure 111 mm[Hg] Amina Fagan Other [employer] Other 07-27-2021 14:00-0500 Body height 180.34 cm Jenaro Lynch Other [employer] Other 07-27-2021 14:00-0500 Body mass index (BMI) [Ratio] 30.4 kg/m2 Jenaro Lynch Other [employer] Other 07-27-2021 14:00-0500 Body weight 98.88 kg Jenaro Lynch Other [employer] Services Other 07-27-2021 14:00-0500 Diastolic blood pressure 76 mm[Hg] Jenaro Lynch Other [employer] Other 07-27-2021 14:00-0500 Respiratory rate 18 /min Jenaro Lynch Other [employer] Other 07-27-2021 14:00-0500 SaO2% (BldA) [Mass fraction] 98 % Jenaro Lynch Other [employer] Other 07-27-2021 14:00-0500 Systolic blood pressure 112 mm[Hg] Jenaro Lynch Other [employer] Other Encounters Encounter Date Encounter Type Care Provider Facility Start: 09-08-2023 ambulatory Yeyo Ley ty:[facility] Start: 07-12-2023 End: 07-12-2023 Emergency department patient visit Jenaro Lynch Facility:[facility] Start: 07-12-2023 End: 07-12-2023 Emergency department patient visit DO Jenaro Lynch Work Phone: [facility] Work Phone: Start: 07-07-2023 End: 07-07-2023 ambulatory Jenaro Jettjoe Other [employer] Other Start: 07-07-2023 Telephone encounter Jenaro Rory [facility] Start: 07-03-2023 End: 07-04-2023 ambulatory Yeyo ROWE Facility:[facility] [place] Start: 06-26-2023 End: 06-26-2023 ambulatory Jenaro Lynch Other [employer] Other Start: 06-26-2023 Telephone encounter Jenaro Rory [facility] Start: 06-02-2023 End: 06-03-2023 ambulatory Yeyo ROWE Facility:[facility] [place] Start: 06-02-2023 End: 06-02-2023 Patient encounter procedure Yeyo ROWE [facility] Start: 05-16-2023 End: 05-16-2023 ambulatory Jenaro Lynch Other [employer] Other Start: 05-16-2023 Telephone encounter Jenaro Lynch [facility] Start: 05-03-2023 End: 05-04-2023 ambulatory Yeyo ROWE Facility:[facility] [place] Start: 05-03-2023 End: 05-03-2023 Patient encounter procedure Yeyo ROWE [facility] Start: 04-28-2023 End: 04-28-2023 ambulatory Jenaro Lynch Other [employer] Other Start: 04-28-2023 Telephone encounter Jenaro Lynch [facility] Start: 04-18-2023 End: 04-19-2023 ambulatory Yeyo ROWE Facility:[facility] [place] Start: 04-18-2023 End: 04-18-2023 Patient encounter procedure Yeyo ROWE [facility] Start: 04-17-2023 ambulatory Yeyo ROWE Facili ty:[facility] [place] Start: 04-13-2023 End: 04-14-2023 ambulatory Yeyo ROWE Facility:CD:[id number] Start: 04-11-2023 End: 04-11-2023 ambulatory Jenaro Lynch Other [employer] Other Start: 04-11-2023 Telephone encounter Jenaro Lynch [facility] Start: 04-06-2023 End: 04-06-2023 ambulatory Jenaro Fraustojoe Other [employer] Other Start: 04-06-2023 Encounter for other preprocedural examination Jenaro Lynch [facility] Start: 04-06-2023 Office outpatient vi sit 25 minutes Jenaro Lynch [facility] Start: 03-28-2023 End: 03-28-2023 ambulatory Jenaro Fraustojoe Other [employer] Other Start: 03-28-2023 Telephone encounter Jenaro Lynch [facility] Start: 03-20-2023 ambulatory Yeyo ROWE Facili ty:[facility] [place] Start: 03-16-2023 ambulatory Yeyo ROWE Facili ty:[id number] Start: 03-15-2023 End: 03-15-2023 ambulatory Jenaro Fraustojoe Other [employer] Other Start: 03-15-2023 Office outpatient vi sit 25 minutes Jenaro Lynch [facility] Start: 03-10-2023 End: 03-10-2023 ambulatory Jenaro Lynch Other [employer] Other Start: 03-10-2023 Telephone encounter Jenaro Lynch [facility] Start: 02-15-2023 Office outpatient vi sit 15 minutes Jenaro Lynch Work Phone: [facility] 250 DO Work Phone: Start: 02-15-2023 ambulatory Dolores Feldman Facility:[id number] Start: 02-14-2023 End: 02-15-2023 ambulatory Yeyo Viktoria ROWE Facility:[facility] Start: 02-14-2023 End: 02-14-2023 Patient encounter procedure Yeyoneel ROWE [facility] Start: 02-08-2023 End: 02-09-2023 ambulatory Yeyo Viktoria ROWE Facility:[facility] Start: 02-08-2023 End: 02-08-2023 Patient encounter procedure Yeyo R ROWE [facility] Start: 01-30-2023 End: 01-31-2023 ambulatory Yeyo Viktoria ROWE Facility:[facility] Start: 01-30-2023 End: 01-30-2023 Patient encounter procedure Yeyo ROWE [facility] Start: 01-25-[address] Jenaro Lynch Facility:[id number] Start: 01-17-2023 End: 01-17-2023 ambulatory Jenaro Lynch Other [facility] Other Start: 01-17-2023 Telephone encounter Jenaro Lynch [facility] Start: 01-11-2023 Office outpatient vi sit 25 minutes Jenaro Lynch Work Phone: [facility] 600 DO Work Phone: Start: 01-11-2023 ambulatory Dolores Feldman Facility:[id number] Start: 12-28-2022 End: 12-29-2022 ambulatory Yeyo ROWE Facility:[facility] [place] Start: 12-28-2022 End: 12-28-2022 Patient encounter procedure Yeyo ROWE [facility] Start: 12-21-2022 ambulatory Yeyo ROWE Facili ty:[facility] [place] Start: 12-01-2022 End: 12-01-2022 ambulatory Jenaro Lynch Other [employer] Other Start: 12-01-2022 Office outpatient vi sit 25 minutes Jenaro Lynch [facility] Start: 11-30-2022 ambulatory Yeyo ROWE Facility :[facility] [place] Start: 11-23-2022 End: 11-24-2022 ambulatory Yeyo ROWE Facility:[facility] [place] Start: 11-23-2022 End: 11-23-2022 Patient encounter procedure Yeyo ROWE [facility] [place] Start: 10-07-2022 End: 10-07-2022 ambulatory Jenaro Lynch Other [employer] Other Start: 10-07-2022 Telephone encounter Jenaro Lynch [facility] Start: 09-27-2022 End: 09-27-2022 ambulatory Jenaro Lynch Facility:[facility] Start: 09-27-2022 End: 09-27-2022 ambulatory DO Jenaro Lynch Work Phone: [facility] Work Phone: Start: 09-27-2022 End: 09-27-2022 Patient encounter procedure DO Jenaro Lynch Work Phone: [facility] [place] Work Phone: Start: 09-21-2022 End: 09-21-2022 ambulatory Jenaro Lynch Other [employer] Other Start: 09-21-2022 Telephone encounter Jenaro Lynch [facility] Start: 09-14-2022 End: 09-14-2022 ambulatory Jenaro Fraustojoe Other [employer] Other Start: 09-14-2022 Telephone encounter Jenaro Lynch [facility] Start: 09-02-2022 End: 09-02-2022 ambulatory Jenaro Lynch Facility:[facility] Start: 09-02-2022 End: 09-02-2022 Patient encounter procedure DO Jenaro Jettjoe Work Phone: [facility] [place] Work Phone: Start: 08-25-2022 End: 08-25-2022 ambulatory Tona Mapus Other [employer] Other Start: 08-25-2022 Telephone encounter Doris Mapus [facility] Start: 08-22-2022 End: 08-22-2022 ambulatory Jenaro Lynch Other [employer] Other Start: 08-22-2022 Telephone encounter Jenaro Rory [facility] Start: 08-05-2022 End: 08-05-2022 ambulatory Jenaro Lynch Other [employer] Other Start: 08-05-2022 Telephone encounter Jenaro Lynch [facility] Start: 08-04-2022 End: 08-04-2022 ambulatory Jenaro Lynch Other [employer] Other Start: 08-04-2022 Telephone encounter Jenaro Lynch [facility] Start: 07-28-2022 End: 07-28-2022 ambulatory Jenaro Lynch Other [employer] Other Start: 07-28-2022 Telephone encounter Jenaro Lynch [facility] [place] Start: 07-25-2022 End: 07-25-2022 ambulatory Jenaro Lynch Other [employer] Other Start: 07-25-2022 Nursing evaluation o f patient and report Jenaro Lynch [facility] Start: 07-19-2022 End: 07-19-2022 ambulatory Jenaro Lynch Other [employer] Other Start: 07-19-2022 Telephone encounter Jenaro Lynch [facility] Start: 07-15-2022 End: 07-15-2022 ambulatory Jenaro Lynch Other [employer] Other Start: 07-15-2022 Telephone encounter Jenaro Lynch [facility] Start: 07-13-2022 End: 07-13-2022 ambulatory Jenaro Lynch Other [employer] Other Start: 07-13-2022 Nursing evaluation o f patient and report Jenaro Lynch [facility] Start: 07-12-[address] Raulito gutierrez [facility] Facility: Start: 07-05-2022 End: 07-05-2022 ambulatory Jenaro Lynch Other [employer] Other Start: 07-05-2022 Telephone encounter Jenaro Lynch [facility] Start: 07-05-2022 Rx Renewal Jenaro Lynch Work Phone: [facility] 250 DO Work Phone: Start: 07-04-2022 End: 07-04-2022 ambulatory Jenaro Lynch Other [employer] Other Start: 07-04-2022 Office outpatient vi sit 25 minutes Jenaro Lynch [facility] Start: 06-30-2022 End: 06-30-2022 ambulatory Jenarogorge Lynch Other [employer] Other Start: 06-30-2022 Telephone encounter Jenaro Lynch [facility] Start: 05-25-2022 End: 05-25-2022 ambulatory Jenarogorge Lynch Other [employer] Other Start: 05-25-2022 Telephone encounter Jenaro Lynch [facility] Start: 04-25-2022 End: 04-25-2022 ambulatory Jenarogorge Lynch Other [employer] Other Start: 04-25-2022 Telephone encounter Jenaro Lynch [facility] Start: 04-19-2022 End: 04-19-2022 ambulatory Jenarogorge Lynch Other [employer] Other Start: 04-19-2022 Telephone encounter Jenaro Lynch [facility] Start: 03-22-2022 End: 03-22-2022 ambulatory Jenaro Lynhc Other [employer] Other Start: 03-22-2022 Telephone encounter Jenaro Lynch [facility] Start: 03-01-2022 End: 03-01-2022 ambulatory Jenaro Lynch Other [employer] Other Start: 03-01-2022 Telephone encounter Jenaro Lynch [facility] Start: 02-18-2022 End: 02-18-2022 ambulatory Jenarogorge Lynch Other [employer] Other Start: 02-18-2022 Telephone encounter Jenarogorge Lynch [facility] Start: 02-15-2022 End: 02-15-2022 ambulatory Verona Whaley Other [employer] Other Start: 02-15-2022 Office outpatient vi sit 25 minutes Jenaro Lynch [facility] [place] Start: 02-15-[address] Wh[address] [facility] Start: 01-21-2022 End: 01-21-2022 ambulatory Jenaro Lynch Other [employer] Other Start: 01-21-2022 Telephone encounter Jenaro Lynch [facility] [place] Start: 01-19-2022 End: 01-19-2022 ambulatory Jenaro Lynch Other [employer] Other Start: 01-19-2022 Telephone encounter Jenaro Lynch [facility] [place] Start: 01-13-2022 End: 01-13-2022 ambulatory Jenaro Lynch Other [employer] Other Start: 01-13-2022 Telephone encounter Jenaro Lynch [facility] [place] Start: 12-23-2021 End: 12-23-2021 ambulatory Jenaro Lynch Other [employer] Other Start: 12-23-2021 Telephone encounter Jenaro Lynch [facility] [place] Start: 11-24-2021 End: 11-24-2021 ambulatory Jenaro Lynch Other [employer] Other Start: 11-24-2021 Telephone encounter Jenaro Lynch [facility] [place] Start: 11-03-2021 Rx Renewal Jenaro Lynch Work Phone: [facility] [employer] 250 DO Work Phone: Start: 10-26-2021 Office outpatient vi sit 25 minutes Jenaro Lynch Work Phone: [facility] [employer] 250 DO Work Phone: Start: 10-25-2021 End: 10-25-2021 ambulatory Jenaro Lynch Other [employer] Other Start: 10-25-2021 Telephone encounter Jenaro Lynch [facility] Start: 10-19-2021 End: 10-19-2021 ambulatory Azjuan Kinseys Other [employer] Other Start: 10-19-2021 Office outpatient vi sit 25 minutes Aziz Bakhous [facility] Start: 10-18-2021 End: 10-18-2021 ambulatory Aziz Bakhous Other [employer] Other Start: 10-18-2021 Telephone encounter Azjuan Kinseys [facility] Start: 10-12-2021 End: 10-13-2021 ambulatory DUATRE HENRY . Facility: Start: 10-08-2021 End: 10-08-2021 ambulatory Jenaro Lynch Other [employer] Other Start: 10-08-2021 Telephone encounter Jenaro Lynch [facility] Start: 09-22-2021 End: 09-22-2021 ambulatory Jenaro Lynch Other [employer] Other Start: 09-22-2021 Telephone encounter Jenaro Lynch [facility] Start: 09-21-2021 End: 09-21-2021 ambulatory Jenaro Lynch Other [employer] Other Start: 09-21-2021 Telephone encounter Jenaro Lynch [facility] [place] Start: 08-09-2021 End: 08-09-2021 ambulatory Jenaro Lynch Other [employer] Other Start: 08-09-2021 Telephone encounter Jenaro Lynch [facility] Start: 08-02-2021 End: 08-02-2021 ambulatory Jenaro Lynch Other [employer] Other Start: 08-02-2021 Telephone encounter Jenaro Lynch [facility] Start: 07-27-2021 End: 07-27-2021 ambulatory Jenaro Lynch Other [employer] Other Start: 07-27-2021 Office outpatient vi sit 25 minutes Jenaro Lynch [facility] Start: 06-23-2021 End: 06-23-2021 ambulatory Jenaro Lynch Other [employer] Other Start: 06-23-2021 Telephone encounter Jenaro Lynch [facility] Start: 06-22-2021 Rx Renewal Jenaro Lynch Work Phone: [facility] 250 DO Work Phone: Start: 05-03-2021 End: 05-03-2021 ambulatory Jenaor Lynch Other [employer] Other Start: 05-03-2021 Telephone encounter eJnaro Lynch [facility] Procedures Date Procedure Procedure Detail Performing Clinician Start: 07-12-2023 Plain chest X-ray DO Livia Lynch Work Phone: Start: 09-02-2022 MRI of head DO Jenaro shi Work Phone: Start: 06-05-2006 Total colonoscopy Jenaro Lynch Work Phone: Appendectomy Jenaro Lynch Work Phone: Appendectomy Yeyo ROWE Bilateral Carpal Timothy uli Surgery Yeyo ROWE Bilateral Eye Surgery 1 Patr genaro ROWE Comment on above: bilateral cataracts with iol implants Cardiac catheterization Jose Angel charlie Mari Lynch Work Phone: cardiac stents Yeyo Diaz Cataract extraction and insertion of intraocular lens Yeyo ROWE Cataract surgery Jenaro diaz Work Phone: Colonoscopy Yeyo ROWE Decompression of med byron nerve Jenaro Mari Rory Work Phone: History of percutane ous transluminal coronary angioplasty History of PTCA Jenaro Mari Rory Work Phone: Procedure on back Jenaro Claudio ns Work Phone: Comment on above: nerve ablation; Procedure on back Yeyo DOSHI Scrotum and testicle operation Jenaro Lynch Work Phone: Plan of Treatment Date Care Activity Detail Author Start: 11-15-2023 FUV, Provider: Raulito Inman, Status: Pen, Time: 2:40 PM FUV, Provider: Raulito Inman, Status: Pen, Time: 2:40 PM [facility] 250 DO Work Phone: Start: 07-12-2023 Duplex scan of lower limb veins US venous duplex LE BI [facility] Start: 07-12-2023 US Lower extremity v ein - bilateral [facility] Start: 07-12-2023 Duplex scan veins of upper limb US venous duplex UE LT [facility] Start: 07-12-2023 US Upper extremity v ein - left [facility] Start: 02-15-2023 FUV, Provider: Dolores Velazquez, Status: Pen, Time: 10:00 AM FUV, Provider: Dolores Velazquez, Status: Pen, [facility]: 10:00 [facility] Work Phone: Start: 01-25-2023 STRESS NUC, Provider : CHARISSE PEMBERTONI NUCLEAR ,[id number], Status: Pen, Time: 8:30 AM STRESS NUC, Provider: CHARISSE HHVI NUCLEAR 01,[id number], Status: Pen, Time: 8:30 AM [facility] 600 DO Work Phone: Start: 07-12-2022 FUV, Provider: Raulito Inman, Status: Pen, Time: 9:20 AM FUV, Provider: Raulito Inman, Status: Pen, Time: 9:20 AM [facility] [place] 250 DO Work Phone: Start: 10-26-2021 FUV, Provider: Raulito Inman, Status: Pen, Time: 9:30 AM FUV, Provider: Raulito Inman, Status: Pen, Time: 9:30 AM [facility] [place] 250 DO Work Phone: Patient Education Dependent Edema (DC) [facility] Work Phone: Patient referral [facility] Work Phone: Immunizations Immunization Date Immunization Notes Care Provider Sachin pettit 11-13-2020 Pfizer-BioNTech COVID-19 Vacc 30 MCG/0.3ML Intramuscular Suspension Jenaro Lnych Work Phone: [facility] 10-23-2020 Pfizer-BioNTech COVID-19 Vacc 30 MCG/0.3ML Intramuscular Suspension Jenaro Lynch Work Phone: [facility] 01-14-2019 influenza, seasonal, injectable Jenaro Lynch Other [employer] Other 01-14-2019 influenza virus vaccine, unspecified formulation Yeyo ROWE [facility] 04-02-2018 influenza virus vaccine, unspecified formulation Yeyo ROWE [facility] 04-02-2018 influenza, injectabl e, quadrivalent, preservative free DO Jenaro Lynch Work Phone: [facility] 03-05-2018 influenza virus vaccine, unspecified formulation Jenaro Lynch Work Phone: [facility] 250 DO Work Phone: 03-05-2018 pneumococcal polysaccharide vaccine, 23 valent Jenaro Lynch Work Phone: [facility] 250 DO Work Phone: 03-07-2016 influenza virus vaccine, unspecified formulation Yeyo ROWE [facility] 03-07-2016 influenza, injectabl e, quadrivalent, preservative free Jenaro Lynch Work Phone: [facility] 600 DO Work Phone: 02-22-2016 pneumococcal polysaccharide vaccine, 23 valent Jenaro Mari Rory Work Phone: [facility] Payers Date Payer Category Payer Self-pay [id number] 2022 Medicaid [id number] 1965 Unknown [id number] 1965 Unknown [id number] 2.16.8 40.1.366661.3.579.2.1068 1965 Unknown [id number] 2.16. 840.1.322973.3.579.2.356 1965 Unknown [id number] 2.16. 840.1.270686.3.579.2.356 1965 Unknown [id number] 2.16. 840.1.462505.3.579.2.356 1965 Unknown [id number] 2.16.8 40.1.367639.3.579.2. 1965 Unknown [id number] 2.16.8 40.1.652582.3.579.2 1965 Unknown [id number] 2.16.8 40.1.093106.3.579.2 1965 Unknown [id number] 2.16.8 40.1.907243.3.579.2 1965 Unknown [id number] 2.16.8 40.1.143961.3.579.2 1965 Unknown [id number] 2.16.8 40.1.299195.3.579.2 1965 Unknown [id number] 2.16.8 40.1.119491.3.579.2 1965 Unknown [id number] 2.16.8 40.1.101616.3.579.2 1965 Unknown [id number] 2.16.8 40.1.218090.3.579.2 1965 Unknown [id number] 2.16.8 40.1.388651.3.579.2 1965 Unknown [id number] 2.16.8 40.1.340311.3.579.2 1965 Unknown [id number] 2.16.8 40.1.974284.3.579.2 1965 Unknown [id number] 2.16.8 40.1.093167.3.579.2. 1965 Unknown [id number] 2.16.8 40.1.758032.3.579.2 1965 Unknown [id number] 2.16.8 40.1.468225.3.579.2.727 1959 Unknown [id number] 2.1 6.840.1.186474.19 Unknown [employer] Unknown [id number] 2.16.8 40.1.601226.3.579.2.531 Unknown [id number] 2.16.8 40.1.864221.3.579.2.531 Unknown [id number] 2.16.8 40.1.280683.3.579.2.531 Social History Date Type Detail Facility Caffeine use Caffeine use [employer] Other Comment on above: 2 cups coffee, 4-6 c ups tea daily, occaional soda; qauit 07/2020; Sex Assigned At [facility] Start: 07-14-2020 End: 07-12-2023 Tobacco smoking status NHIS Smoker (finding) [facility] Start: 1965 Sex Assigned At Male [facility] Start: 11-23-2022 End: 06-02-2023 Tobacco smoking status Heavy tobacco smoker (finding) [facility] Tobacco smoking status Never [facility] Medical Equipment Procedure Code Equipment Code Equipment Origin al Text Equipment Identifier Dates Aortogram, abdominal, with bilateral lower extremity runoff IR STENT SMART 10 X 80 120 CM FDA Start: 09-27-2018 Aortogram, abdominal, with bilateral lower extremity runoff IR STENT SMART 10 X 80 120 CM FDA Start: 09-27-2018 Start: 12-16-2013 Bare-metal bilia ry stentMultiple peripheral artery stent, bare-metal [id number] FDA Start: 07-14-2020 Functional Status Date Assessment Result Facility 06-02-2023 Functional Status N/A [facility] 02-14-2023 Functional Status N/A [facility] 01-30-2023 Functional Status N/A [facility] 11-23-2022 Functional Status N/A [facility] Clinical Notes 06-23-2021 to 06-26-2023 Note Date & Type Note Facility 06-26-2023 Evaluation note Encounter Date Diagnosis Assessment Notes Jun, Hyperlipidemia (ICD-10 - E78.5) [employer] Other 12-29-2023 Hospital Discharge instructions Patient Education 06/02/2023 11:57:43 Benign Prostatic Hyperplasia Benign Prostatic Hyperplasia Benign prostatic hyperplasia (BPH) is an enlarged prostate gland that is caused by the normal agingprocess. The prostate may get bigger as a man gets older. The condition is not caused by cancer. The prostate is a walnut-sized gland that is involved in the production of semen. It is located in front of the rectum and below the bladder. The bladder stores urine. The urethra carries stored urine ou t of the body. An enlarged prostate can press on the urethra. This can make it harder to pass urine. The buildup of urine in the bladder can cause infection. Back pressure and infection may progress to bladder damage and kidney (renal) failure. What are the causes? This condition is part of the normal aging process. However, not all men develop problems from thiscondition. If the prostate enlarges away from the urethra, urine flow will not be blocked. If it enlarges toward the urethra and compresses it, there will be problems passing urine. What increases the risk? This condition is more likely to develop in men older than 50 years. What are the signs or symptoms? Symptoms of this condition include: Getting up often during the night to urinate. Needing to urinate frequently during the day. Difficulty starting urine flow. Decrease in size and strength of your urine stream. Leaking (dribbling) after urinating. Inability to pass urine. This needs immediate treatment. Inability to completely empty your bladder. Pain when you pass urine. This is more common if there is also an infection. Urinary tract infection (UTI). How is this diagnosed? This condition is diagnosed based on your medical history, a physical exam, and your symptoms. Tests will also be done, such as: A post-void bladder scan. This measures any amount of urine that may remain in your bladder after you finish urinating. A digital rectal exam. In a rectal exam, your health care provider checks your prostate by putting a lubricated, gloved finger into your rectum to feel the back of your prostate gland. This exam detects the size of your gland and any abnormal lumps or growths. An exam of your urine (urinalysis). A prostate specific antigen (PSA) screening. This is a blood test used to screen for prostate cancer. An ultrasound. This test uses sound waves to electronically produce a picture of your prostate gland. Your health care provider may refer you to a specialist in kidney and prostate diseases (urologist). How is this treated? Once symptoms begin, your health care provider will monitor your condition (active surveillance or watchful waiting). Treatment for this condition will depend on the severity of your condition. Treatment may include: Observation and yearly exams. This may be the only treatment needed if your condition and symptoms are mild. Medicines to relieve your symptoms, including: ?Medicines to shrink the prostate. ?Medicines to relax the muscle of the prostate. Surgery in severe cases. Surgery may include: ?Prostatectomy. In this procedure, the prostate tissue is removed completely through an open incision or with a laparoscope or robotics. ?Transurethral resection of the prostate (TURP). In this procedure, a tool is inserted through the opening at the tip of the penis (urethra). It is used to cut away tissue of the inner core of the prostate. The pieces are removed through the same opening of the penis. This removes the blockage. ?Transurethral incision (TUIP). In this procedure, small cuts are made in the prostate. This lessens the prostate's pressure on the urethra. ?Transurethral microwave thermotherapy (TUMT). This procedure uses microwaves to create heat. The heat destroys and removes a small amount of prostate tissue. ?Transurethral needle ablation (TUNA). This procedure uses radio frequencies to destroy and remove a small amount of prostate tissue. ?Interstitial laser coagulation (ILC). This procedure uses a laser to destroy and remove a small amount of prostate tissue. ?Transurethral electrovaporization (TUVP). This procedure uses electrodes to destroy and remove a small amount of prostate tissue. ?Prostatic urethral lift. This procedure inserts an implant to push the lobes of the prostate away from the urethra. Follow these instructions at home: Take zkvt-vym-lcrojcs and prescription medicines only as told by your health care provider. Monitor your symptoms for any changes. Contact your health care provider with any changes. Avoid drinking large amounts of liquid before going to bed or out in public. Avoid or reduce how much caffeine or alcohol you drink. Give yourself time when you urinate. Keep all follow-up visits. This is important. Contact a health care provider if: You have unexplained back pain. Your symptoms do not get better with treatment. You develop side effects from the medicine you are taking. Your urine becomes very dark or has a bad smell. Your lower abdomen becomes distended and you have trouble passing urine. Get help right away if: You have a fever or chills. You suddenly cannot urinate. You feel light-headed or very dizzy, or you faint. There are large amounts of blood or clots in your urine. Your urinary problems become hard to manage. You develop moderate to severe low back or flank pain. The flank is the side of your body between the ribs and the hip. These symptoms may be an emergency. Get help right away. Call 911. Do not wait to see if the symptoms will go away. Do not drive yourself to the hospital. Summary Benign prostatic hyperplasia (BPH) is an enlarged prostate that is caused by the normal aging process. It is not caused by cancer. An enlarged prostate can press on the urethra. This can make it hard to pass urine. This condition is more likely to develop in men older than 50 years. Get help right away if you suddenly cannot urinate. This information is not intended to replace advice given to you by your health care provider. Make sure you discuss any questions you have with your health care provider. Document Revised: 12/08/2021 Document Reviewed: 12/08/2021 [employer] Patient Education 2022 [employer]. Follow Up Care 06/01/2023 14:05:36 With:SOLEDAD HERRERA, Yeyo Blum, URL Address: [address] [place], [place] [id number]- When: Unknown [facility] 12-12-2023 Evaluation note* Encounter Date Diagnosis Assessment Notes Treatment Notes Treatment Clinical Notes May, 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) [employer] [facility] Other 11-24-2023 Evaluation note* Encounter Date Diagnosis Assessment Notes Treatment Notes Treatment Clinical Notes Apr, Diabetic nephropathy (ICD-10 - E11.21) [facility] [employer] Other 11-07-2023 Evaluation note* Encounter Date Diagnosis Assessment Notes Treatment Notes Treatment Clinical Notes Apr, Left arm pain (ICD-10 - M79.602) [employer] Other 11-02-2023 Evaluation note* Encounter Date Diagnosis Assessment Notes Treatment Notes Treatment Clinical Notes Apr, Encounter for pre-operative examination (ICD-10 - Z01.818) I did review pt's cardiac testing, lab work, as well as his cardiac clearance. Pt is scheduled with Dr. Rowe for a cystoscopy, and will have sedation and a spinal block. Pt is borderline anemic, and I do recommend he take Slow-Fe OTC for this, but that he wait until after his surgery. It is my medical opinion that pt is clear for the scheduled surgery under the outlined anesthesia. Apr, Anemia (ICD-10 - D64.9) Pt is to start the above medication after his surgery. He is to take one tablet a day for two weeks, then may decrease to every other day. Apr, Bladder mass (ICD-10 - N32.89) We did discuss these masses at length, and discussed some of the possible causes of these. He is to continue to follow with Dr. Rowe, and to have his surgery as scheduled. 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 He is to continue on the above regimen and monitor diet. Mar, Sepsis (ICD-10 - A41.9) Patient is to continue with PT/OT for strength training and was advised his body will take time to recover from the significant infection he just had. Strongly encouraged he not wait as long to go to the ER if something like this were to happen in the future as states she had to have nurses from her work place come assess him and talk him into going. He and voiced understanding. Mar, UTI (urinary tract infection) (ICD-10 - N39.0) No records available as of yet from [facility]. He was found to have developed the UTI likely secondary to not having had the garza catheter in place as he was trying to see how he does without it prior to the TURP procedure planned for 04/[address] Rowe due to the polyps in his prostate. Mar, Hypertensive chronic kidney disease with stage 1 through stage 4 chronic kidney disease, or unspecified chronic kidney disease (ICD-10 - I12.9) Due to blood pressures being more on the hypotensive side, was encouraged to cut his valsartan-hctz in half if possible. He is to continue to montior this at home. [employer] [facility] Other 10-09-2023 Note [id number] 02-14-2023 [id number]:127[facility]09-12-2023 Note [id number]:127[facility] 02-14-2023 Hospital Discharge instructions Patient Education 02/14/2023 10:00:47 Transurethral Resection of the Prostate Transurethral Resection of the Prostate Transurethral resection of the prostate (TURP) is the removal, or resection, of part of the prostate tissue. This procedure is done to treat an enlarged prostate gland (benign prostatic hyperplasia). The goal of TURP is to remove enough prostate tissue to allow for a normal flow of urine. The procedure will allow you to empty your bladder more completely when you urinate so that you can urinate less often. In a transurethral resection, a thin telescope with a light, a camera, and an electric cutting edge(resectoscope) is passed through the urethra and into the prostate. The opening of the urethra is at the end of the penis. Tell a health care provider about: Any allergies you have. All medicines you are taking, including vitamins, herbs, eye drops, creams, and uwus-cak-dpasvhi medicines. Any problems you or family members have had with anesthetic medicines. Any bleeding problems you have. Any surgeries you have had. Any medical conditions you have. Any prostate infections you have had. What are the risks? Generally, this is a safe procedure. However, problems may occur, including: Infection. Bleeding. Allergic reactions to medicines. Blood in the urine (hematuria). Damage to nearby structures or organs. Other problems may occur, but they are rare. They include: Dry ejaculation, or having no semen come out during orgasm. Erectile dysfunction, or being unable to have or keep an erection. Scarring that leads to narrowing of the urethra. This narrowing may block the flow of urine. Inability to control when you urinate (incontinence). Deep vein thrombosis. This is a blood clot that can develop in your leg. TURP syndrome. This can happen when you lose too much sodium during or after the procedure. Some signs and symptoms of this condition include: ?Weakness. ?Headaches. ?Nausea or vomiting. ?Muscle cramping. What happens before the procedure? When to stop eating and drinking Follow instructions from your health care provider about what you may eat and drink before your procedure. These may include: 8 hours before your procedure ?Stop eating most foods. Do not eat meat, fried foods, or fatty foods. ?Eat only light foods, such as toast or crackers. ?All liquids are okay except energy drinks and alcohol. 6 hours before your procedure ?Stop eating. ?Drink only clear liquids, such as water, clear fruit juice, black coffee, plain tea, and sports drinks. ?Do not drink energy drinks or alcohol. 2 hours before your procedure ?Stop drinking all liquids. ?You may be allowed to take medicines with small sips of water. If you do not follow your health care provider's instructions, your procedure may be delayed or canceled. Medicines Ask your health care provider about: Changing or stopping your regular medicines. This is especially important if you are taking diabetes medicines or blood thinners. Taking medicines such as aspirin and ibuprofen. These medicines can thin your blood. Do not take these medicines unless your health care provider tells you to take them. Taking djsz-gpj-mfjhcgj medicines, vitamins, herbs, and supplements. Surgery safety Ask your health care provider what steps will be taken to help prevent infection. These steps may include: Removing hair at the surgery site. Washing skin with a germ-killing soap. Taking antibiotic medicine. General instructions Do not use any products that contain nicotine or tobacco for at least 4 weeks before the procedure.These products include cigarettes, chewing tobacco, and vaping devices, such as e-cigarettes. If you need help quitting, ask your health care provider. If you will be going home right after the procedure, plan to have a responsible adult: ?Take you home from the hospital or clinic. You will not be allowed to drive. ?Care for you for the time you are told. What happens during the procedure? An IV will be inserted into one of your veins. You will be given one or more of the following: ?A medicine to help you relax (sedative). ?A medicine to make you fall asleep (general anesthetic). ?A medicine that is injected into your spine to numb the area below and slightly above the injection site (spinal anesthetic). Your legs will be placed in foot rests (stirrups) so that your legs are apart and your knees are bent. The resectoscope will be passed through your urethra to your prostate. Parts of your prostate will be resected using the cutting edge of the resectoscope. Fluid will be passed to rinse out the cut tissues (irrigation). The resectoscope will be removed. A small, thin tube (catheter) will be passed through your urethra and into your bladder. The catheter will drain urine into a bag outside of your body. The procedure may vary among health care providers and hospitals. What happens after the procedure? Your blood pressure, heart rate, breathing rate, and blood oxygen level will be monitored until youleave the hospital or clinic. You will be given fluids through the IV. The IV will be removed when you start eating and drinking normally. You may have some pain. Pain medicine will be available to help you. You will have a catheter draining your urine. ?You may have blood in your urine. Your catheter may be kept in until your urine is clear. ?Your urinary drainage will be monitored. If necessary, your bladder may be rinsed out (irrigated) through your catheter. You will be encouraged to walk around as soon as possible. You may have to wear compression stockings. These stockings help to prevent blood clots and reduce swelling in your legs. If you were given a sedative during the procedure, it can affect you for several hours. Do not drive or operate machinery until your health care provider says that it is safe. Summary Transurethral resection of the prostate (TURP) is the removal (resection) of part of the prostate tissue. The goal of this procedure is to remove enough prostate tissue to allow for a normal flow of urine. Follow instructions from your health care provider about taking medicines and about eating and drinking before the procedure. This information is not intended to replace advice given to you by your health care provider. Make sure you discuss any questions you have with your health care provider. Document Revised: 02/15/2022 Document Reviewed: 02/15/2022 [employer] [facility] Education [facility]22 [facility] Discharge instructions Patient Education 01/30/2023 11:22:32 Urodynamic Testing Urodynamic Testing Urodynamic tests are done to determine how well your lower urinary tract is working. The lower urinary tract includes your bladder and the part of your body that drains urine from the bladder (urethra). When your kidneys filter your blood, urine is stored in your bladder until you feel the urge to urinate. Urination requires coordination between the nerves and muscles of your bladder and urethra. When your lower urinary tract is working well, you should be able to: Start urinating when your bladder is full. Empty your bladder completely. Control the flow of your urine. Why do I need urodynamic testing? You may need urodynamic testing to help find the cause of any of these problems: Leaking urine (incontinence). Problems starting or stopping your urine flow. Frequent or painful urination. Frequent urinary tract infections. Being unable to empty your bladder completely. Having strong urges to pass urine (urgency). Having a weak flow of urine. What are the risks? Generally, these tests are safe. However, some of the tests have risks, including: Discomfort. Frequent urge to urinate. Bleeding. Infection. Allergic reactions to medicines or dyes (contrast material). What happens before the test? Ask your health care provider about changing or stopping your regular medicines. This is especiallyimportant if you are taking diabetes medicines or blood thinners. You may be asked to avoid urinating before coming to the test so that you arrive with a full bladder. Tell a health care provider about: ?Any allergies you have. ?All medicines you are taking, including vitamins, herbs, eye drops, creams, and zaum-ufg-kgnvdlv medicines. ?Whether you are or may be . What happens during the test? You may have various urodynamic tests. The tests may be done separately or may all be done during one visit. You may be given an antibiotic medicine before or after testing to help prevent infection. The types of tests that may be done include: Uroflowmetry This test measures how much urine you pass and how long it takes to pass. You will urinate into a certain type of toilet or device (flowmeter). The device will measure the volume and the time of your urine flow. These measurements will be sent to a computer that creates a graph of your urine flow. Postvoid residual measurement This test measures how much urine is left in your bladder after you urinate. The test may be done with ultrasound. In this method, sound waves and a computer will be used to create an image of your bladder. The test can also be done by inserting a thin, flexible tube (catheter) into your bladder after youurinate. The remaining urine will be removed through the catheter so it can be measured. Remaining urine will be measured in milliliters (mL). If you have more than 100 mL left in your bladder after you urinate, your bladder is not emptying as it should. Cystometric testing This test uses a type of bladder catheter that can measure pressure. You may be given a medicine to numb the area (local anesthetic). The area around the opening of your urethra will be cleaned. A urinary catheter will be passed through your urethra into your bladder and used to empty your bladder completely. A measuring catheter will be placed, and your bladder will be filled with warm, germ-free (sterile)water. Pressure measurements will be taken: ?As your bladder fills. ?When you feel the need to urinate. ?As your bladder is emptied. You may be asked to cough or bear down to check for leakage. In some cases, your bladder may be filled with a material that shows up on X- rays (contrast material) so that X-ray pictures can be taken during the test. Electromyogram This test measures the electrical activity of the nerves and muscles of your bladder and the opening of your urethra. Sticky patches (electrodes) will be placed near your rectum and urethra to measure electrical activity. The measurements will show how well your nerves are communicating with your muscles. What can I expect after the test? You should be able to go home right away and do your usual activities. You may be told to drink a glass of water every 30 minutes for the first 2 hours after testing. Taking a warm bath or using warm, wet cloths (warm compresses) may relieve any discomfort near yoururethra. What do the results mean? Talk with your health care provider about what your results mean. Some common causes for abnormal results from urodynamic tests include: Enlarged prostate in men. Overactive bladder. Urinary tract infection. Nervous system diseases. Spinal cord damage. Questions to ask your health care provider Ask your health care provider, or the department that is doing the test: When will my results be ready? How will I get my results? What are my treatment options? What other tests do I need? What are my next steps? Contact a health care provider if: You have pain. You have blood in your urine. You have chills. You have a fever. Summary Urodynamic tests are done to determine how well your lower urinary tract is working. The lower urinary tract includes your bladder and urethra. You may need urodynamic testing to help find the cause of various problems with urination, such as leaking urine (incontinence) or problems starting or stopping your urine flow. You may have various urodynamic tests. The tests may be done separately or may all be done during one testing visit. Talk with your health care provider about what your results mean. Contact your health care provider if you have pain, chills, a fever, or blood in your urine. This information is not intended to replace advice given to you by your health care provider. Make sure you discuss any questions you have with your health care provider. Document Revised: 02/02/2022 Document Reviewed: 12/25/2020 [employer] Patient Education 2022 [employer] 01/30/2023 11:22:30 Cystoscopy Cystoscopy Cystoscopy is a procedure that is used to help diagnose and sometimes treat conditions that affect the lower urinary tract. The lower urinary tract includes the bladder and the urethra. The urethra is the tube that drains urine from the bladder. Cystoscopy is done using a thin, tube-shaped instrument with a light and camera at the end (cystoscope). The cystoscope may be hard or flexible, depending on the goal of the procedure. The cystoscope is inserted through the urethra, into the bladder. Cystoscopy may be recommended if you have: Urinary tract infections that keep coming back. Blood in the urine (hematuria). An inability to control when you urinate (urinary incontinence) or an overactive bladder. Unusual cells found in a urine sample. A blockage in the urethra, such as a urinary stone. Painful urination. An abnormality in the bladder found during an intravenous pyelogram (IVP) or CT scan. Cystoscopy may also be done to remove a sample of tissue to be examined under a microscope (biopsy). Tell a health care provider about: Any allergies you have. All medicines you are taking, including vitamins, herbs, eye drops, creams, and xaon-mio-texfbay medicines. Any problems you or family members have had with anesthetic medicines. Any blood disorders you have. Any surgeries you have had. Any medical conditions you have. Whether you are or may be . What are the risks? Generally, this is a safe procedure. However, problems may occur, including: Infection. Bleeding. Allergic reactions to medicines. Damage to other structures or organs. What happens before the procedure? Medicines Ask your health care provider about: Changing or stopping your regular medicines. This is especially important if you are taking diabetes medicines or blood thinners. Taking medicines such as aspirin and ibuprofen. These medicines can thin your blood. Do not take these medicines unless your health care provider tells you to take them. Taking vfma-eob-zefbdzz medicines, vitamins, herbs, and supplements. Tests You may have an exam or testing, such as: X-rays of the bladder, urethra, or kidneys. CT scan of the abdomen or pelvis. Urine tests to check for signs of infection. General instructions Follow instructions from your health care provider about eating or drinking restrictions. Ask your health care provider what steps will be taken to help prevent infection. These steps may include: ?Washing skin with a germ-killing soap. ?Taking antibiotic medicine. Plan to have a responsible adult take you home from the hospital or clinic. What happens during the procedure? You will be given one or more of the following: ?A medicine to help you relax (sedative). ?A medicine to numb the area (local anesthetic). The area around the opening of your urethra will be cleaned. The cystoscope will be passed through your urethra into your bladder. Germ-free (sterile) fluid will flow through the cystoscope to fill your bladder. The fluid will stretch your bladder so that your health care provider can clearly examine your bladder weiss. Your doctor will look at the urethra and bladder. Your doctor may take a biopsy or remove stones. The cystoscope will be removed, and your bladder will be emptied. The procedure may vary among health care providers and hospitals. What can I expect after the procedure? After the procedure, it is common to have: Some soreness or pain in your abdomen and urethra. Urinary symptoms. These include: ?Mild pain or burning when you urinate. Pain should stop within a few minutes after you urinate. This may last for up to 1 week. ?A small amount of blood in your urine for several days. ?Feeling like you need to urinate but producing only a small amount of urine. Follow these instructions at home: Medicines Take mxrj-xel-vlpzyup and prescription medicines only as told by your health care provider. If you were prescribed an antibiotic medicine, take it as told by your health care provider. Do notstop taking the antibiotic even if you start to feel better. General instructions Return to your normal activities as told by your health care provider. Ask your health care provider what activities are safe for you. If you were given a sedative during the procedure, it can affect you for several hours. Do not drive or operate machinery until your health care provider says that it is safe. Watch for any blood in your urine. If the amount of blood in your urine increases, call your healthcare provider. Follow instructions from your health care provider about eating or drinking restrictions. If a tissue sample was removed for testing (biopsy) during your procedure, it is up to you to get your test results. Ask your health care provider, or the department that is doing the test, when yourresults will be ready. Drink enough fluid to keep your urine pale yellow. Keep all follow-up visits. This is important. Contact a health care provider if: You have pain that gets worse or does not get better with medicine, especially pain when you urinate. You have trouble urinating. You have more blood in your urine. Get help right away if: You have blood clots in your urine. You have abdominal pain. You have a fever or chills. You are unable to urinate. Summary Cystoscopy is a procedure that is used to help diagnose and sometimes treat conditions that affect the lower urinary tract. Cystoscopy is done using a thin, tube-shaped instrument with a light and camera at the end. After the procedure, it is common to have some soreness or pain in your abdomen and urethra. Watch for any blood in your urine. If the amount of blood in your urine increases, call your healthcare provider. If you were prescribed an antibiotic medicine, take it as told by your health care provider. Do notstop taking the antibiotic even if you start to feel better. This information is not intended to replace advice given to you by your health care provider. Make sure you discuss any questions you have with your health care provider. Document Revised: 02/02/2022 Document Reviewed: 01/01/2021 [employer] Patient Education 2022 [employer]. Follow Up Care 11/23/2022 13:02:56 With:SOLEDAD HERRERA, Yeyo Blum, URL Address: [facility] [address] , [place] [address]- [phone] When: Unknown Comments:sched cysto/uros [facility] [place] 08-15-2023 Evaluation note* Encounter Date Diagnosis Assessment Notes Treatment Notes Treatment Clinical Notes Jan, Diabetic nephropathy (ICD-10 - E11.21) [employer] Other 06-29-2023 Evaluation note* Encounter Date Diagnosis Assessment Notes Treatment Notes Treatment Clinical Notes Nov, Acute intractable headache, unspecified headache type (ICD-10 - R51.9) Pt is doing well on the above medication, therefore a refill was provided for them today. Nov, 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) Last hgb a1c was 10.2 09/27/2022. His glucometer broke but is working with Neurology to determine if he would qualify for a CGM and whether his insurance would cover one. I did recommend he be evaluated by a diabetic specialist, and states he will need a new referral to be seen by Valerie Barnes after cancelling two new pt appointments. His a1c was significantly elevated, therefore I recommend he increase his Trulicity. Pt and are in agreement. Pt is to continue with the above medication and continue watching their diet and increase their exercise regimen.. Nov, Diabetic nephropathy (ICD-10 - E11.21) Pt is having a hard time checking his blood sugars due to his diabetic nephropathy. He is to continue the above medication, and continue to follow with neurology. Nov, Hypertensive chronic kidney disease with stage 1 through stage 4 chronic kidney disease, or unspecified chronic kidney disease (ICD-10 - I12.9) Encouraged pt to follow consult with Dr. Fagan soon. He is to continue the above medication and we will continue to monitor. Nov, RLS (restless legs syndrome) (ICD-10 - G25.81) Pt is doing well on the above medication, therefore a refill was provided for them today. Nov, Urinary retention with incomplete bladder emptying (ICD-10 - R33.9) Discussion was had regarding this, and I advised it could be caused by a number of things, including his prostate and diabetes. He reports he was having groin pain that did resolve after placement of the catheter. He is to continue to follow with Dr. Rowe. Nov, Hyperlipidemia (ICD-10 - E78.5) Pt is doing well on the above medication, therefore a refill was provided for them today. Pt is to continue with the above medication and continue watching their diet and increase their exercise regimen. Nov, Anxiety (ICD-10 - F41.9) Pt is doing well on the above medication, therefore a refill was provided for them today. Nov, Lumbar degenerative disc disease (ICD-10 - M51.36) Pt is doing well on the above medication, therefore a refill was provided for them today after an OARRS report was generated and reviewed. 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 [employer] Other 06-21-2023 Hospital Discharge instructions Patient Education 11/23/2022 12:39:08 Indwelling Urinary Catheter Insertion, Care After Indwelling Urinary Catheter Insertion, Care After This sheet gives you information about how to care for yourself after your procedure. Your health care provider may also give you more specific instructions. If you have problems or questions, contact your health care provider. What can I expect after the procedure? After the procedure, it is common to have: Slight discomfort around your urethra where the catheter enters your body. Follow these instructions at home: General instructions Keep the drainage bag at or below the level of your bladder. By doing this, your urine can only drain out instead of going back into your body. Secure the catheter tubing and drainage bag to your leg or thigh to keep it from moving. Check the catheter tubing regularly to make sure there are no kinks or blockages. Take showers daily to keep the catheter clean. Do not take a bath. Do not pull on your catheter. Disconnect the tubing and drainage bag as little as possible. Empty the drainage bag every 2 4 hours, or more often if needed. Do not let the bag get completely full. Wash your hands with soap and water before and after touching the catheter, tubing, or drainage bag. Do not let the drainage bag or catheter tubing touch the floor. Drink enough fluids to keep your urine pale yellow, or as told by your health care provider. How to remove the catheter Remove the catheter only if told by your health care provider. Follow instructions from your healthcare provider about when and how to remove the catheter. For most catheters, you will need to take the following steps: 1.Prepare your supplies. You will need a: Syringe. This would be given to you by your health care provider. Towel. Wastebasket. 2.Empty the drainage bag if needed. 3.Wash your hands with soap and warm water. 4.Remove the tape that secures the catheter to your leg or thigh. 5.Get into a comfortable position, such as: Lying down with your head raised on pillows and your knees pointing to the ceiling. Sitting on a chair or the edge of a bed. 6.Place the towel under you to catch any spilled urine. 7.Put the syringe into the balloon port of the catheter. Use a firm push and twist motion to fit the syringe into the balloon port. 8.The water from the balloon will empty into the syringe. 9.Gently pull out the catheter once the balloon is empty. If the catheter doesn't slide easily, do not use force. Let your health care provider know that youare not able to remove the catheter. 10.Throw the used catheter and the syringe in the wastebasket. 11.Wipe any spilled urine or water with the towel. 12.Wash your hands with soap and warm water. Safety Let your health care provider know if: Your bladder is full, but you are not able to urinate. You have removed the catheter, but you are not able to urinate after 8 hours. Contact a health care provider if: Your urine: ?Looks cloudy. ?Has a bad smell. ?Stops flowing into the drainage bag. Your catheter: ?Gets clogged. ?Starts to leak. You feel pain or pressure in the bladder area. You have back pain. Your drainage bag or tubing looks dirty. Get help right away if: You have a fever or chills. You have severe pain in your back or your lower abdomen. You have warmth, redness, swelling, or pain in the urethra area. You notice blood in your urine. Your catheter gets pulled out. Summary Wash your hands with soap and water before and after touching the catheter, tubing, or drainage bag. Do not pull on your catheter or try to remove it. Keep the drainage bag at or below the level of your bladder, but do not let the drainage bag or catheter tubing touch the floor. Get help right away if you have a fever, chills, or any other signs of infection. This information is not intended to replace advice given to you by your health care provider. Make sure you discuss any questions you have with your health care provider. Document Revised: 08/11/2021 Document Reviewed: 05/07/2021 [employer] Patient Education 2021 [employer]. Follow Up Care 09/14/2022 14:23:26 With:SOLEDAD HERRERA, Yeyo Blum, URL Address: [facility] [address], [place] [address]- When: Unknown [facility] 05-05-2023 Evaluation note* Encounter Date Diagnosis Assessment Notes Treatment Notes Treatment Clinical Notes October, Erectile dysfunction, unspecified erectile dysfunction type (ICD-10 - N52.9) [employer] Other 04-19-2023 Evaluation note* Encounter Date Diagnosis Assessment Notes Treatment Notes Treatment Clinical Notes Sep, 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) [facility] Other 04-12-2023 Evaluation note* Encounter Date Diagnosis Assessment Notes Treatment Notes Treatment Clinical Notes Sep, 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 (ICD-10 - I25.10) Sep, 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) [facility] Other 03-20-2023 Evaluation note* Encounter Date Diagnosis Assessment Notes Treatment Notes Treatment Clinical Notes Aug, Diabetic nephropathy (ICD-10 - E11.21) [employer] [facility] Other 03-03-2023 Evaluation note* Encounter Date Diagnosis Assessment Notes Treatment Notes Treatment Clinical Notes Aug, Pain in right leg (ICD-10 - M79.604) [facility] Other 03-02-2023 Evaluation note* Encounter Date Diagnosis Assessment Notes Treatment Notes Treatment Clinical Notes Aug, Pain in right leg (ICD-10 - M79.604) [facility] Other 02-20-2023 Evaluation note* Encounter Date Diagnosis Assessment Notes Treatment Notes Treatment Clinical Notes Jul, Intractable episodic headache, unspecified headache type (ICD-10 - R51.9) [facility] Other 02-14-2023 Evaluation note* Encounter Date Diagnosis Assessment Notes Treatment Notes Treatment Clinical Notes Jul, Acute intractable headache, unspecified headache type (ICD-10 - R51.9) [facility] Other 02-08-2023 Evaluation note* Encounter Date Diagnosis Assessment Notes Treatment Notes Treatment Clinical Notes Jul, Headache (ICD-10 - R51.9) [facility] Other 01-30-2023 Evaluation note* Encounter Date Diagnosis Assessment Notes Treatment Notes Treatment Clinical Notes Jun, Acute intractable headache, unspecified headache type (ICD-10 - R51.9) The patient complains that high-pitched sounds trigger his head pain that starts out primarily in the occipital frontal region and becomes more generalized as the day goes on. Blood pressure findings are mildly elevated today in the office. The patient advised to use caution taking Ibuprofen due to his kidney disease.Discussion was had regarding a possible component of arthritis contributing to the headaches. A Toradol injection offered and administered today, I advise he stays cognitive if this improves the pain. The above muscle relaxer and instructions provided. Jun, Diabetic nephropathy (ICD-10 - E11.21) Pt is to continue with the above medication, a refill was provided and we will continue to monitor. The patient encourged to follow through with Doris Barnes as scheduled tomorrow 07/05/22. Jun, Hypertensive chronic kidney disease with stage 1 through stage 4 chronic kidney disease, or unspecified chronic kidney disease (ICD-10 - I12.9) The patient consulted with nephrology in the past, last visit was 10/2021 with and did not follow up as recommended.I strongly recommend they reschedule cancelled appointment. Jun, RLS (restless legs syndrome) (ICD-10 - G25.81) Pt is to continue with the above medication, a refill was provided and we will continue to monitor. OARRS report generated and reviewed. Jun, GERD (gastroesophageal reflux disease) (ICD-10 - K21.9) Pt is to continue with the above medication and we will continue to monitor. [facility] Other 12-21-2022 Evaluation note* Encounter Date Diagnosis Assessment Notes Treatment Notes Treatment Clinical Notes May, Diabetic nephropathy (ICD-10 - E11.21) [facility] Other 11-21-2022 Evaluation note* Encounter Date Diagnosis Assessment Notes Treatment Notes Treatment Clinical Notes Apr, Diabetic nephropathy (ICD-10 - E11.21) [facility] Other 11-15-2022 Evaluation note* Encounter Date Diagnosis Assessment Notes Treatment Notes Treatment Clinical Notes Apr, Pain in right leg (ICD-10 - M79.604) [facility] Other 10-18-2022 Evaluation note* Encounter Date Diagnosis Assessment Notes Treatment Notes Treatment Clinical Notes Mar, Diabetic nephropathy (ICD-10 - E11.21) [facility] Other 09-13-2022 Evaluation note* Encounter Date Diagnosis Assessment Notes Treatment Notes Treatment Clinical Notes Feb, Hypertensive chronic kidney disease with stage 1 through stage 4 chronic kidney disease, or unspecified chronic kidney disease (ICD-10 - I12.9) [facility] Other 09-13-2022 Evaluation note* Encounter Date Diagnosis Assessment Notes Treatment Notes Treatment Clinical Notes Feb, Diabetic nephropathy (ICD-10 - E11.21) Fasting glucose reading of 185, in house A1C was greater than 14.0. Since the patients A1C is out of control, we will refer to Doris Barnes. Patient is agreeable and the referral was initiated. The patient reports the nephropathy getting worse which is causing him issues with walking any distances. I advised the to call the insurance to see what the protocol to getting it paid. is to call back and let us know. Feb, Hypertensive chronic kidney disease with stage 1 through stage 4 chronic kidney disease, or unspecified chronic kidney disease (ICD-10 - I12.9) Reviewed blood work results with the patient, kidney has imporved from last check. The patients blood pressure was WNL upon check in. Patient is to continue to follow with Dr. Fagan as scheduled. 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 Patient is to continue following with the CC and Dr. Inman. Feb, RLS (restless legs syndrome) (ICD-10 - G25.81) Refill provided of the above. Feb, Erectile dysfunction , unspecified erectile dysfunction type (ICD-10 - N52.9) Prescription printed. Feb, GERD (gastroesophageal reflux disease) (ICD-10 - K21.9) Refill provided of the above. Feb, Hyperlipidemia (ICD-10 - E78.5) Cholesterol levels continue to be elevated upon review of blood work results. Patient is to continue to follow with the fee clerk as scheduled. Feb, Pain in right leg (ICD-10 - M79.604) Refill provided of the above. Feb, 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) Fasting glucose reading of 185, and in house A1C was greater than 14.0. Therefore we will refer to Doris Barnes. 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 Feb, Screening for prostate cancer (ICD-10 - Z12.5) Review of PSA level which was WNL, therefore, we will continue to monitor. Pt denies any urinary issues at this time. Feb, Gout (ICD-10 - M10.9) U gualberto level is elevated upon review of blood work results. I did discuss allopurinol with the patient and advised him to discuss with Dr. Fagan. Feb, Low mean corpuscular volume (MCV) (ICD-10 - R71.8) Noted upon review of blood work results. Since the patients other blood counts are normal, we will continue to monitor. Feb, Vitamin D deficiency (ICD-10 - E55.9) Noted upon review of blood work results. [facility] [employer] Other 08-19-2022 Evaluation note* Encounter Date Diagnosis Assessment Notes Treatment Notes Treatment Clinical Notes Jan, Diabetic nephropathy (ICD-10 - E11.21) [facility] Other 08-17-2022 Evaluation note* Encounter Date Diagnosis Assessment Notes Treatment Notes Treatment Clinical Notes Jan, Diabetic nephropathy (ICD-10 - E11.21) [facility] Other 07-21-2022 Evaluation note* Encounter Date Diagnosis Assessment Notes Treatment Notes Treatment Clinical Notes Dec, Diabetic nephropathy (ICD-10 - E11.21) [facility] Other 06-22-2022 Evaluation note* Encounter Date Diagnosis Assessment Notes Treatment Notes Treatment Clinical Notes Nov, Diabetic nephropathy (ICD-10 - E11.21) [facility] [employer] Other 05-23-2022 Evaluation note* Encounter Date Diagnosis Assessment Notes Treatment Notes Treatment Clinical Notes October, Diabetic nephropathy (ICD-10 - E11.21) [facility] Other 05-17-2022 Evaluation note* Encounter Date Diagnosis Assessment Notes Treatment Notes Treatment Clinical Notes October, CKD (chronic kidney disease) stage 3, GFR 30-59 ml/min (ICD-10 - N18.3) Chronic kidney disease likely from diabetic nephropathy. Patient has been having progressive kidney disease related to uncontrolled diabetes. Serum creatinine up to 2.0 mg/dL. I explained the patient that he needs better control of diabetes to attenuate CKD progression. Patient already on valsartan 160 mg p.o. daily. Patient has minimal proteinuria. I will check protein to creatinine ratio next visit. I will continue to follow renal function panel every 3 to 4 months . I asked the patient to stay away completely from NSAIDs October, Hypertensive chronic kidney disease with stage 1 through stage 4 chronic kidney disease, or unspecified chronic kidney disease (ICD-10 - I12.9) Blood pressure seems well controlled and at target. I will continue same blood pressure medication October, Diabetic nephropathy (ICD-10 - E11.21) Diabetes remains out of control. He passed hemoglobin A1c more than 11%. I explained to the patient the necessity of controlling diabetes. Patient already on glucose sodium, Co transporter inhibitor. Patient follows with Dr. Lynch October, BMI 34.0-34.9,adult (ICD-10 - Z68.34) He is mildly overweight, importance of weight control and its relation to diabetes control has been addressed. 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 Inman. For this October, Other He did quit smoking since July 2020 [facility] [employer] Other 05-16-2022 Evaluation note* Encounter Date Diagnosis Assessment Notes Treatment Notes Treatment Clinical Notes October, Hypertensive chronic kidney disease with stage 1 through stage 4 chronic kidney disease, or unspecified chronic kidney disease (ICD-10 - I12.9) October, Stage 3 chronic kidney disease, unspecified whether stage 3a or 3b CKD (ICD-10 - N18.30) [facility] Other 05-06-2022 Evaluation note* Encounter Date Diagnosis Assessment Notes Treatment Notes Treatment Clinical Notes October, Pain in right leg (ICD-10 - M79.604) October, Pain in left leg (ICD-10 - M79.605) [facility] Other 04-20-2022 Evaluation note* Encounter Date Diagnosis Assessment Notes Treatment Notes Treatment Clinical Notes Sep, Diabetic nephropathy (ICD-10 - E11.21) [facility] Other 04-19-2022 Evaluation note* Encounter Date Diagnosis Assessment Notes Treatment Notes Treatment Clinical Notes Sep, Anxiety (ICD-10 - F41.9) Sep, Hypertensive chronic kidney disease with stage 1 through stage 4 chronic kidney disease, or unspecified chronic kidney disease (ICD-10 - I12.9) [facility] Other 03-07-2022 Evaluation note* Encounter Date Diagnosis Assessment Notes Treatment Notes Treatment Clinical Notes Aug, Anxiety (ICD-10 - F41.9) [facility] Other 02-22-2022 Evaluation note* Encounter Date Diagnosis Assessment Notes Treatment Notes Treatment Clinical Notes Jul, RLS (restless legs syndrome) (ICD-10 - G25.81) Refill provided of the above medication. Jul, Erectile dysfunction , unspecified erectile dysfunction type (ICD-10 - N52.9) Refill provided of the above medication. Jul, GERD (gastroesophageal reflux disease) (ICD-10 - K21.9) Refill provided of the above medication. Jul, CAD (coronary artery disease) (ICD-10 - I25.10) Refill provided of the above medication. Jul, Diabetic nephropathy (ICD-10 - E11.21) Patient is to continue to follow with [facility] as scheduled. Jul, Insomnia (ICD-10 - G47.00) Patient reports only getting about 2-3 hours per night and denies taking naps during the day. Jul, Anxiety (ICD-10 - F41.9) Patient reports only taking the above medication as needed. Jul, Bilateral hip pain (ICD-10 - M25.551) Patient had a recent consult with Dr. Del Valle. Jul, Hyperlipidemia (ICD-10 - E78.5) Blood work ordered. Jul, Screening for prostate cancer (ICD-10 - Z12.5) Blood work ordered. Jul, 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) In house A1C reading of 11.8, an increase from 11.4 at last check. Therefore I did discuss starting the patient on trulicity and check to see if insurance will cover the pedro or dexcom. I did provide samples of the trulicity. Jul, Weight loss (ICD-10 - R63.4) Patient presents in the office with a 12 pound weight loss from last visit. [employer] [facility] Other [id number] Evaluation note* Encounter Date Diagnosis Assessment Notes Treatment Notes Treatment Clinical Notes Jun, Diabetic nephropathy (ICD-10 - E11.21) [employer] Other Evaluation + Plan note Future Appointments Appointment Date:12/21/2022 11:00:00 AM Scheduled Provider: Location:[facility] Appointment Type:URO Nurse Visit Appointment Date:01/30/2023 10:30:00 AM Scheduled Provider:Yeyo ROWE MD Location:[facility] Appointment Type:URO Office Visit [facility] Evaluation + Plan note Future Appointments Appointment Date:01/30/2023 10:15:00 AM Scheduled Provider:Yeoy ROWE MD Location:[facility] Appointment Type:URO Office Visit [facility] Evaluation + Plan note Future Appointments Appointment Date:02/01/2023 10:00:00 AM Scheduled Provider: Location:[facility] Appointment Type:Urology CALL PAT IBRAHIMA Appointment Date:02/08/2023 09:00:00 AM Scheduled Provider: Location:[facility] Appointment Type:Urology FT Appointment Date:02/14/2023 09:15:00 AM Scheduled Provider: Location:[facility] Appointment Type:Urology FT [facility] evaluation + Plan note Future Appointments Appointment Date:02/14/2023 09:15:00 AM Scheduled Provider: Location:[facility] Appointment Date:03/20/2023 08:45:00 AM Scheduled Provider: Location:[facility] Appointment Type:URO Nurse Visit Appointment Date:04/05/2023 08:00:00 AM Scheduled Provider:Yeyo ROWE MD [facility] App[facility]ments Appointment Date:05/03/2023 08:45:00 AM Scheduled Provider:Yeyo ROWE MD Location:[facility] Appointment Type:URO Office Visit [facility] Evaluation + Plan note Future Appointments Appointment Date:07/03/2023 10:15:00 AM Scheduled Provider:Yeyo ROWE MD Location:[facility] Appointment Type:URO Office Visit [facility] evaluation noteNo InformationNort [employer] Other Evaluation noteNo assessment information available [facility] Work Phone: Hisvitp general Narrative - Reported* Type Description Date Medical History TYPE II DIABETES Medical History CHRONIC BACK PAIN OLD INJURY, Medical History HTN Medical History FIBROMYALGIA Medical History 2012-stress test Medical History mild heart attack Medical History heart cath Medical History cardiac stents placed 07/26/15 Dr Mary Bowie Medical History 10/10/2016 PSA (0.5) Medical History PVD Medical History Angioplasty & stenti ng LT LE 09/27/18 w/ Dr. Seals Medical History 01/25/19 Colonoscopy Medical History cigarette smoker Medical History CLAUDICATION Surgical History APPENDECTOMY 1989 Surgical History YADI CARPAL TUNNEL RELEASE 2009 Surgical History YADI CATARACT EXTRATION AND LENS INPLANTS 2010 Surgical History appendix 1989 Surgical History Carpal Tunnel Release Bilateral ly Surgical History Lense Replacement Bilateral Eye s Surgical History radio waves in L3,4,5 lower anni k LT side 06/06/11 Surgical History 3 heart stents placed 11/2013 Surgical History upper GI 12/2013 Surgical History heart cath done 07/2014 Surgical History Heart stent placed by Dr. Bowie at [facility] 07/26/15 Surgical History Left knee arthroscopy 11/2015 Surgical History carpal tunnel release, right an d left 08/2016 Surgical History hydrocele repair 08/2016 Surgical History cardiac cath [facility] 04/02/18 Surgical History Lt LE iliac DSA, angioplasty & stenting 09/27/2018 Surgical History Left Angiogram with one stent - Dr. Boss 07/2020 Hospitalization History Deep Depression, Anxiety; [facility] 11-11-10 Hospitalization History [facility] hypoxemia and hyper capnic respirtory failure 11/11/16 Hospitalization History chest pain [facility] 04/02/18 [employer] Other History of Present illness NarrativeReturns in follow- up of problems as noted. In the interim he is done relatively well. I cannot elicit any convincing symptoms of angina from him any appears to remember the symptoms that preceded hisoriginal diagnosis of coronary disease and subsequent PTCA. Risk factor management including treatment of diabetes hypertension and hyperlipidemia is adequate. He is no longer smoking and he was congratulated in this regard. The merits of diet and weight loss and its favorable impact on blood pressure and diabetes [facility] 250 DO Work Phone: History of Present illness Narrative* The patient states he has been generally stable since the last visit. Comorbid Illnesses: diabetes mellitus, hypertension and hyperlipidemia. * Symptoms: resolved chest pain at rest, resolved exertional chest pain, worsened dyspnea, worsened fatigue, worsened exercise intolerance, denies palpitations, stable edema, denies orthopnea, denies dizziness and denies orthostatic dizziness. * Associated symptoms: no syncope. * His symptoms do not limit his activities. * Disease Monitoring: The patient has had a stable weight. * Medications: the patient is adherent with his medication regimen. He denies medication side effects. [facility] 600 DO Work Phone: History of Present illness Narrative* The patient states he has been generally doing well since the last visit. Comorbid Illnesses: diabetes mellitus, hypertension and hyperlipidemia. * Symptoms: denies chest pain at rest, denies exertional chest pain, improved dyspnea, improved fatigue, denies exercise intolerance, denies palpitations, resolved edema, denies orthopnea, denies dizziness and denies orthostatic dizziness. * Associated symptoms: no syncope. * His symptoms do not limit his activities. * Disease Monitoring: The patient has had a 5 pounds weight loss. * Medications: the patient is adherent with his medication regimen. He denies medication side effects. [facility] Work Phone: Hospital course Narrative No data available for this section [facility] Discharge instructions No data available for this section [facility] [employer] Progress note No data available for this section [facility] [employer] Chief Complaint SOLOMON FELDMAN is being seen for a 9 month follow-up of.* Routine f/u: 'I have been getting so tired' * SOLOMON FELDMAN is being seen for a 6 month follow-up of coronary artery disease, dyslipidemia and hypertension. * Patient presents to the office ambulatory with steady gait, is accompanied by his . Last evaluated in clinic Dr. Mark October 2021. * Patient follows routinely with PCP. * He reports approximately 6 weeks ago his bladder stopped working . There is evidence of post-renalAKI with Kayla creatinine of 1.8. He currently has a Garza catheter. Reportedly will be seeing urology in the near future. * Current activity level is fairly sedentary by choice. Over the last 3 months he has noted real tired all the time. He has also noted progressive worsening dyspnea on exertion. 1 month ago he reports waking up from sleep with tightness across his chest and into his left arm, he took 3 nitroglycerin -has had no additional recurrence. He denies any exertional chest pain, has had no additional nitroglycerin use. He had mild dyspnea on exertion ambulated in from the parking lot. He reports his prior PCI symptom was being tired and out of breath . He reports a change in exercise capacity and functional tolerance. No unstable symptoms. * September 2022 labs: * Triglycerides were elevated, he reports hemoglobin A1c was 11 and adjustments have recently been made to treatment. Otherwise his HDL was 21, LDL 38. * He reports prior left lower extremity stenting with no routine vascular follow-up. He denies any claudication symptoms. He has noted some increased bilateral lower extremity edema that is dependent in nature. * Due to recurrent symptoms discussed options of perfusion study as initial ischemic evaluation. No unstable symptoms, has indwelling garza with unclear Urologic procedures planned and most recent Cr .1.8. He is in agreement to proceed. Will add long-acting nitrates. He will follow-up after testing. * Testing f/u: 'best I felt in a while' * SOLOMON FELDMAN is being seen for a 1 month follow-up of chest pain, dyspnea and testing results. * Patient presents to the office ambulatory with steady gait, is accompanied by his . Last evaluated in clinic by myself January 2023. At that time, patient presented with complaints of fatigue, dyspnea on exertion and chest pain. I added isosorbide and placed sildenafil on hold. A subsequent perfusion study showed low likelihood critical coronary artery disease LVEF 55%. Results reviewed with patient and . * Patient presents to the office today reports not doing too bad . He has noted significant improvement in his dyspnea on exertion, and has noted no additional chest pain. He has started to increase his activity level doing light housework and yard work. He ambulated in from the parking lot without c omplaints. He would like to resume use of sildenafil and we discussed discontinuing long-acting nitrates in order to accommodate. He will monitor for recurrent symptoms of dyspnea on exertion or exertional chest pain that would indicate need for long-acting nitrates. Overall, both he and are pl eased with results of perfusion study. Otherwise, prior reported dependent lower extremity edema has completely resolved with increased activity. * On March 16, 2023 will be having TURP procedure, no contraindication to proceed from cardiovascular standpoint and okay to interrupt DAPT as requested. * Secondary prevention: * Recent hemoglobin A1c 11 with changes to diabetic regimen, he reports blood sugars are doing betterand will be following with PCP for repeat hemoglobin A1c and triglycerides. * He continues to be active with lifestyle changes for BMI reduction. * Overall patient is pleased with current state of cardiovascular health. At this time there are no indications for additional cardiovascular testing or need for medication changes. Family History No Family History Records FoundUnknown Family Member Name Dates Details Bypass graft mechanical comp lication, sequela: Mother Status:Active Family history of diabetes m ellitus: Mother(V18.0, Z83.3) Status:Active Family history of hypertensi on: Mother(V17.49, Z82.49) Status:Active Unknown Family Member Name Dates Details Bypass graft mechanical comp lication, sequela: Mother Status:Active Family history of diabetes m ellitus: Mother(V18.0, Z83.3) Status:Active Family history of hypertensi on: Mother(V17.49, Z82.49) Status:Active Unknown Family Member Name Dates Details Bypass graft mechanical comp lication, sequela: Mother Status:Active Family history of diabetes m ellitus: Mother(V18.0, Z83.3) Status:Active Family history of hypertensi on: Mother(V17.49, Z82.49) Status:Active Relationship Condition Age at Onset Recorded Date/T yary Not Specified Heart disease Unknown Peripheral arterial disease Unknown Unknown Family Member Name Dates Details Bypass graft mechanical comp lication, sequela: Mother Status:Active Family history of diabetes m ellitus: Mother(V18.0, Z83.3) Status:Active Family history of hypertensi on: Mother(V17.49, Z82.49) Status:Active Unknown Family Member Name Dates Details Bypass graft mechanical comp lication, sequela: Mother Status:Active Family history of diabetes m ellitus: Mother(V18.0, Z83.3) Status:Active Family history of hypertensi on: Mother(V17.49, Z82.49) Status:Active Reason for Referral Reason CANCELLED consult and treat; previous patient of Dr. Sharpe last seen in 2020; persisting intractable headaches Diagnosis 1 Acute intractable he adache, unspecified headache type (R51.9) Referral Organization [facility] Irene Colunga Referring Provider First Name Jenaro Referring Provider Last Name Rory Referring Provider Specialty Family Prac dale Referred Organization [facility] Referred Provider Lyssa Sharpe Referred Address [address], [place],[address] Referred Provider Specialty Neurology Referral Priority Routine General Notes Verona Burton 023 10:19:08 AM >Received today. [facility] request us to fill out their form and attach to Referral and send it to them and they will call patient to schedule. Referral was sent P2P and fax insurance card since it would not let me attach to referral Verona Burton 07/28/2022 10:23:53 AM >Spoke with Marilynn at [facility] and patient has been scheduled and cancelled the appt for 07/26/22 Verona Burton 07/28/2022 10:27:39 AM >Telephone encounter was sent Reason 03/31/22 @ 2:45pm consult and treat Diagnosis 1 Type 2 diabetes bobby itus with circulatory disorder (E11.59) Referral Organization [facility] Referring Provider First Name Jenaro Referring Provider Last Name Rory Referring Provider Specialty Family Prac dale Referred Organization [facility] Referred Provider Doris Barnes Referred Address [address],[place], [place],[address] Referred Provider Specialty Nurse Jono calderon Referral Priority Routine Referral Appointment Date 2022-03-31 General Notes Verona Burton 022 02:28:10 PM >Received today and sent P2P Verona Burton 02/16/2022 07:50:21 AM >Patient has been scheduled Chief Complaint and Reason for Visit Chief Complaint r51.9 E11.59 E78.5 M10.9 Chief Complaint Bilat feet swollen, L arm swollen/tight Advance Directives No Advanced Directives Records Found Advance Directive Response Recorded Date/ Time Advance Directives No June 09, 2017 5:49pm Advance Directive Response Recorded Date/ Time Advance Directives No June 09, 2017 4:49pm Summary Purpose Additional Source Comments REASON FOR VISIT (unrecogniz ed section and content) RefillsRefillsRefilllower zaida w swelling- spouse had appt and wanted this at the same time, * Needs Y2UarhzphZyalroirYFT to sendRefills-bpk to send rxrefil - bpk to send rxLAB ORDERSRENAL 6 month Follow uprefillrefillclinicalRefills-bpk to send rxlyrica rx printedDM ReferralClinicaldiscuss PSA resultsclinicalClinicalRefills-bpk to send rxrefillrefill- BPK to send rxRefills-bpk to send rxClinicalheadachesClinicaltoradol shottoradol shotclinicaltoradol per bpkNeurology Referral UpdateRefills-bpk to send rxrefillRefillDM Referral UpdaterefillRefillsRefillsTKM CancelledMED CHECKbpk to send bcjcpcvjirb4k check/hospital f/u-bellevueRefillsR/S surgical clearanceclinicalrefillrefillrefillClinical Care Teams (unrecognized sec tion and content) Team Status: Active Member Role Status Dates Jenaro Lynch DO Primary Care Provider Active Team Status: Inactive Member Role Status Dates Jenaro Lynch , Primary Care Provider Active Shana Mclaughlin PA-C Attending Provider Active Team Status: Inactive Member Role Status Dates Jenaro Lynch DO Primary Care Provider Active Jenaro Lynch , DO [facility] Attending Provider Active Team Status: Inactive Member Role Status Dates Jenaro Lynch DO Primary Care Provider Active Sta rt: July 12, 2023 End: July 12, 2023 Nancy Wilson MD Emergency Provider Active St art: July 12, 2023 End: July 12, 2023 Goals (unrecognized section and content) Goals may be documented in a n alternate section (unrecognized sect ion and content) No Status Records FoundNo Status Records FoundNo Status Records FoundNo Status Records FoundNo Status Records FoundNo Status Records Found INFORMATION SOURCE (unrecogn ized section and content) DATE CREATED AUTHOR 11/11/2022 [facility] DATE CREATED AUTHOR AUTHOR'S ORGANIZ ATION 01/27/2023 [facility] DATE CREATED AUTHOR AUTHOR'S ORGANIZ ATION 02/16/2023 [facility] DATE CREATED AUTHOR AUTHOR'S ORGANIZ ATION 02/16/2023 [employer] DATE CREATED AUTHOR AUTHOR'S ORGANIZ ATION 07/14/2023 [facility] DATE CREATED AUTHOR AUTHOR'S ORGANIZ ATION 07/23/2023 [facility] FOR RECORDS PERTAINING TO PATIENTS WHO ARE OR HAVE BEEN ENROLLED IN A CHEMICAL DEPENDENCY/SUBSTANCEABUSE PROGRAM, SOME INFORMATION MAY BE OMITTED. This clinical summary was aggregated from multiple sources. Caution should be exercised in using it in the provision of clinical care. This summary normalizes information from multiple sources, and as a consequence, information in this document may materially change the coding, format and clinical context of patient data. In addition, data may be omitted in some cases. CLINICAL DECISIONS SHOULD BE BASED ON THE PRIMARY CLINICAL RECORDS. [employer] [facility]. provides no warranty or guarantee of the accuracy or completeness of information in this document.
[2023-08-03 21:39] VITALS: BP 143/83; PULSE 78; PULSE 91; RESP 15; RESP 17; TEMP 36.9; O2SAT 97; BMI 28.8
[2023-08-03 22:29] LABS: Glucometer 245 mg/dL (74-106)
[2023-08-03 22:53] LABS: Lactate/Lactic Acid 1.6 mmol/L (0.4-2.0)
[2023-08-03] MEDS: METOPROLOL TARTRATE 100 MG TABLET 50 MG PO (23:03)
[2023-08-03] MEDS: AMITRIPTYLINE HCL 50 MG TABLET 100 MG PO (23:04)
[2023-08-03] MEDS: PREGABALIN 100 MG CAPSULE 200 MG PO (23:04)
[2023-08-03] MEDS: INSULIN ASPART 300 UNIT/3 ML PEN SUBQ (23:08)
[2023-08-03 23:18] VITALS: O2SAT 97
--- NOTE | 2023-08-03 23:18 | RESP.RT ---
Pt denies need for PRN breathing tx. No respiratory distress noted. Pt made aware to call if needed.
[2023-08-03] MEDS: 0.9 % SODIUM CHLORIDE 1,000 ML 100 ML IV (23:19)
[2023-08-03 23:55] VITALS: BP 124/74; PULSE 74; RESP 15; TEMP 36.7; O2SAT 97
[2023-08-04] VITALS (7 sets, daily range): BP systolic 108–130; BP diastolic 59–77; PULSE 76–104; RESP 17–20; TEMP 36.6–38.1; O2SAT 92–96
[2023-08-04] MEDS: OXYCODONE HCL/ACETAMINOPHEN 5MG/325MG 1 TAB PO ×4 (03:56→19:52)
[2023-08-04 05:01] LABS: Basophils Absolute Auto 0.1 10^3/uL (0.0-0.1); Basophils Percent Auto 0.8 % (0.2-2.0); Eosinophils Absolute Auto 0.3 10^3/uL (0.0-0.7); Eosinophils Percent Auto 2.8 % (0.9-7.0); Hematocrit 32.6 % (42.0-54.0); Hemoglobin 9.6 g/dL (14.0-18.0); Immature Granulocytes Abs Auto 0.04 10^3/uL (0.00-0.03); Immature Granulocytes Pct Auto 0.3 % (0.0-0.5); Lymphocytes Absolute Auto 1.7 10^3/uL (1.2-3.8); Lymphocytes Percent Auto 14.9 % (20.5-60.0); Mean Corpuscular HGB Conc 29.4 g/dL (29.9-35.2); Mean Corpuscular Hemoglobin 22.3 pg (25.9-34.0); Mean Corpuscular Volume 75.8 fL (80.0-94.0); Mean Platelet Volume 11.5 fL (9.5-13.5); Monocytes Absolute Auto 1.2 10^3/uL (0.3-0.8); Monocytes Percent Auto 10.4 % (1.7-12.0); Neutrophils Absolute Auto 8.2 10^3/uL (1.4-6.5); Neutrophils Percent Auto 70.8 % (43.0-75.0); Platelet Count 206 10^3/uL (150-450); Red Cell Distribution Width 16.9 % (11.0-15.0); White Blood Count 11.6 10^3/uL (4.0-11.0)
[2023-08-04 05:20] LABS: INR 1.05; Prothrombin Time 11.1 sec (9.0-11.6)
[2023-08-04] MEDS: PREGABALIN 100 MG CAPSULE 200 MG PO ×3 (05:21→21:31)
[2023-08-04 05:24] LABS: Erythrocyte Sedimentation Rate 89 mm/hr (<=20)
[2023-08-04 05:33] LABS: Alanine Aminotransferase 9 U/L (16-63); Albumin Globulin Ratio 0.5; Albumin Level 2.4 g/dL (3.4-5.0); Alkaline Phosphatase 109 U/L (46-116); Anion Gap 10.3; Aspartate Amino Transferase <5 U/L (15-37); BUN Creatinine Ratio 9.7; Bilirubin Total 0.4 mg/dL (0.2-1.0); C Reactive Protein 11.62 mg/dL (<=0.50); Carbon Dioxide 29.2 mmol/L (21.0-32.0); Chloride 96 mmol/L (98-107); Estimated GFR (African America 40 (>=60); Estimated GFR (Non-African Ame 33 (>=60); Globulin 4.4 g/dL; Glucose 329 mg/dL (74-106); Potassium 3.5 mmol/L (3.5-5.1); Sodium 132 mmol/L (136-145); Total Protein 6.8 g/dL (6.4-8.2)
--- NOTE | 2023-08-04 08:14 | CM.NOTE ---
Discussed with JAMIE Almeida about Diabetic education for pt. Elle will be rounding on pt this AM and discuss with pt.
[2023-08-04] MEDS: OMEPRAZOLE 40 MG CAPSULE.DR PO (09:04)
[2023-08-04] MEDS: CLOPIDOGREL BISULFATE 75 MG TABLET PO (09:04)
[2023-08-04] MEDS: ASPIRIN 81 MG TABLET.DR PO (09:04)
[2023-08-04] MEDS: 0.9 % SODIUM CHLORIDE 1,000 ML 100 ML IV ×2 (09:05→19:49)
[2023-08-04] MEDS: METOPROLOL TARTRATE 100 MG TABLET 50 MG PO ×2 (09:05→21:31)
[2023-08-04] MEDS: ATORVASTATIN CALCIUM 40 MG TABLET 80 MG PO (09:05)
[2023-08-04] MEDS: ISOSORBIDE MONONITRATE 30 MG TAB.ER.24H PO (09:05)
[2023-08-04] MEDS: INSULIN ASPART 300 UNIT/3 ML PEN SUBQ ×4 (09:06→21:33)
--- NOTE | 2023-08-04 10:43 | CM.NOTE ---
Rounds made with Dr. Bello, awaiting podiatry consult for further recommendations. No discharge today.
--- NOTE | 2023-08-04 11:30 | P.HP_ITS ---
<Statement entered by Clair Bello DO - 08/04/23 17:16> This documentation has been reviewed and approved. I have also seen and evaluated patient and agree with assessments and plan of care. H&P: HPI History of Present Illness Chief complaint: Rt Foot Puncture Wound, Cellulitis Rt Foot, Narrative: 08/04/23 0920 This is a 58-year-old male patient with a complicated past medical history as outlined below including poorly controlled DM2, CAD s/p [place] (2014), HTN, GERD, migraine headaches, and BPH; who presented to the ED complaining of a right foot wound with swelling and pain. The patient has advanced peripheral neuropathy of the bilateral lower extremities and does not remember injuring his foot, but states he could have stepped on something as there is construction going on in the home. He noted yesterday that he had a small wound on the ball of his foot that had become painful and had surrounding swelling and redness. He presented to the ED for further evaluation. Workup in the ED revealed leukocytosis (14.6), thrombocytopenia (148), ROEL on CKD 3 (BUN 23, CR 2.45, GFR 27), elevated inflammatory markers (ESR 118, CRP 14.63), and lactic acidosis (3.2). On arrival to the ED the patient's heart rate was 110, and his respiratory rate was 24, he was afebrile and with stable BP. An x-ray of the right foot was negative for fracture, foreign body, or aggressive osseous abnormality. He was admitted as an inpatient to the hospitalist service late last night for a diabetic foot infection. At the time of my exam this morning the patient is resting comfortably in bed visiting with his . He complains of intermittent stabbing pain to the ball of his right foot, that radiates to the medial ankle. Otherwise he has no touch sensation to the bilateral feet up to the hips. The foot is moderately swollen with erythema to the plantar surface that is retracting from the marked margins. The patient denies any fevers or chills. Denies chest pain, shortness of breath, N/V/D, or any other acute complaint other than foot pain and infection. Podiatry has been consulted and we appreciate Dr Elias's assistance with this patient's care. I&D is possible pending clinical course, but we will treat with antibiotics for now. Review of Systems ROS Status of ROS 10 or more systems reviewed and unremark able except as noted in history and below [facility] Medical History (Updated 08/04/23 @ 12:46 by Elle Jack NP) CHF (congestive heart failure) ?I50.9 - Heart failure, unspecified (ICD-10) Migraine headache ?G43.909 - Migraine, unspecified, not intractable, without status migrainosus (ICD-10) Tobacco abuse ?Z72.0 - Tobacco use (ICD-10) DM2 (diabetes mellitus, type 2) ?E11.9 - Type 2 diabetes mellitus without complications (ICD-10) Carpal tunnel syndrome ?G56.00 - Carpal tunnel syndrome, unspecified upper limb (ICD-10) Back pain ?M54.9 - Dorsalgia, unspecified (ICD-10) Arthritis ?M19.90 - Unspecified osteoarthritis, unspecified site (ICD-10) Restless leg ?G25.81 - Restless legs syndrome (ICD-10) GERD (gastroesophageal reflux disease) ?K21.9 - Gastro-esophageal reflux disease without esophagitis (ICD-10) High cholesterol ?E78.00 - Pure hypercholesterolemia, unspecified (ICD-10) Myocardial infarction ?I21.9 - Acute myocardial infarction, unspecified (ICD-10) Coronary artery disease ?I25.10 - Atherosclerotic heart disease of [place] coronary artery without angina pectoris (ICD-10) BPH with obstruction/lower urinary tract symptoms ?N40.1 - Benign prostatic hyperplasia with lower urinary tract symptoms (ICD- 10) ?N13.8 - Other obstructive and reflux uropathy (ICD-10) Dementia ?F03.90 - Unspecified dementia, unspecified severity, without behavioral disturbance, psychotic disturbance, mood disturbance, and anxiety (ICD-10) CKD stage 4 due to type 2 diabetes mellitus ?E11.22 - Type 2 diabetes mellitus with diabetic chronic kidney disease (ICD- 10) ?N18.4 - Chronic kidney disease, stage 4 (severe) (ICD-10) Hyperlipidemia ?E78.5 - Hyperlipidemia, unspecified (ICD-10) Polyp of prostate with urinary obstruction ?N40.1 - Benign prostatic hyperplasia with lower urinary tract symptoms (ICD- 10) ?N13.8 - Other obstructive and reflux uropathy (ICD-10) Femoral artery stenosis ?I70.209 - Unspecified atherosclerosis of [place] arteries of extremities, unspecified extremity (ICD-10) Glaucoma ?H40.9 - Unspecified glaucoma (ICD-10) Carpal tunnel syndrome, bilateral ?G56.03 - Carpal tunnel syndrome, bilateral upper limbs (ICD-10) Gout ?M10.9 - Gout, unspecified (ICD-10) COPD (chronic obstructive pulmonary disease) ?J44.9 - Chronic obstructive pulmonary disease, unspecified (ICD-10) Neuropathy ?G62.9 - Polyneuropathy, unspecified (ICD-10) Chronic kidney disease ?N18.9 - Chronic kidney disease, unspecified (ICD-10) Hypertension ?I10 - Essential (primary) hypertension (ICD-10) Weakness ?R53.1 - Weakness (ICD-10) Surgical History (Updated 08/04/23 @ 12:08 by Elle Jack NP) History of heart artery stent ?Z95.5 - Presence of coronary angioplasty implant and graft (ICD-10) History of spinal surgery ?Z98.890 - Other specified postprocedural states (ICD-10) History of colonoscopy ?Z98.890 - Other specified postprocedural states (ICD-10) History of carpal tunnel release ?Z98.890 - Other specified postprocedural states (ICD-10) History of cataract extraction ?Z98.49 - Cataract extraction status, unspecified eye (ICD-10) History of appendectomy ?Z90.49 - Acquired absence of other specified parts of digestive tract (ICD- 10) History of heart artery stent ?Z95.5 - Presence of coronary angioplasty implant and graft (ICD-10) Family History (Updated 03/03/23 @ 18:46 by Darling Sharma RN) Mother Family history of CHF (congestive heart failure) Family history of diabetes mellitus Family history of hypertension Grandfather Family history of CHF (congestive heart failure) Family history of diabetes mellitus Family history of hypertension Family history of myocardial infarction Grandmother Family history of hypertension Social History Within the past year, how often did you have a drink containing alcohol: never Score interpretation: A score less than 4 is consistent with normal alcohol consumption. Smoking status: Current every day smoker What tobacco products do you use: cigarettes Cigarettes per day: 20 Years smoked: 42 Smoking pack-years: 42.00 Non-prescribed substance use: denies use Highest level of school completed/degree received: high school graduate Gender Identity: male Meds Home Medications and Allergies Home Medications Medication Instructions Recorded Confirmed Type aspirin 81 mg tablet,delayed 81 mg PO DAILY 03/03/23 08/03/23 History release atorvastatin 80 mg tablet 80 mg PO DAILY 03/03/23 08/03/23 History clopidogrel 75 mg tablet 75 mg PO DAILY 03/03/23 08/03/23 History empagliflozin 10 mg tablet 10 mg PO DAILY 03/03/23 08/03/23 History (Jardiance) glimepiride 2 mg tablet 2 mg PO BID 03/03/23 08/03/23 History metformin 1,000 mg tablet 1,000 mg PO BID 03/03/23 08/03/23 History metoprolol tartrate 100 mg tablet 50 mg PO Q12H 03/03/23 08/03/23 History nitroglycerin 0.4 mg sublingual 0.4 mg sublingual Q5M PRN chest 03/03/23 08/03/23 History tablet pain omeprazole 40 mg capsule,delayed 40 mg PO DAILY 03/03/23 08/03/23 History release pregabalin 200 mg capsule 200 mg PO TID 03/03/23 08/03/23 History sitagliptin phosphate 100 mg 100 mg PO DAILY 03/03/23 08/03/23 History tablet (Januvia) tamsulosin 0.4 mg capsule (Flomax) 0.4 mg PO BID 03/03/23 08/03/23 History valsartan 160 1 tab PO DAILY 03/03/23 08/03/23 History mg-hydrochlorothiazide 12.5 mg tablet amitriptyline 100 mg tablet 100 mg PO BEDTIME 03/04/23 08/03/23 History albuterol sulfate 90 mcg/actuation 2 inh inhalation Q4H PRN shortness 03/30/23 08/03/23 History aerosol inhaler (ProAir HFA) of breath or wheezing dulaglutide 1.5 mg/0.5 mL 1.5 mg subcut QWEEK 08/03/23 08/03/23 History subcutaneous pen injector (Trulicity) fremanezumab-vfrm 225 mg/1.5 mL 225 mg subcut .QMonth 08/03/23 08/03/23 History subcutaneous auto-injector (Ajovy) furosemide 40 mg tablet 40 mg PO DAILY 08/03/23 08/03/23 History isosorbide mononitrate 30 mg 30 mg PO DAILY 08/03/23 08/03/23 History tablet,extended release 24 hr rimegepant 75 mg disintegrating 75 mg PO DAILY 08/03/23 08/03/23 History tablet (Nurtec ODT) Allergies Allergy/AdvReac Type Severity Reaction Status Date / Time Penicillins Allergy Severe Swelling Verified 03/03/23 22:47 of Lip/Tongue/Throat bee venom protein (honey bee) Allergy Swelling Verified 03/30/23 12:43 of Lip/Tongue/Throat latex Allergy Rash Verified 03/30/23 12:42 Exam Constitutional Vital Signs, click to edit/add: Last Vital Signs Temp 98 F 08/04/23 07:44 Pulse 80 08/04/23 07:44 Resp 20 08/04/23 07:44 BP 115/61 08/04/23 07:44 Pulse Ox 94 L 08/04/23 07:44 O2 Del Method Room Air 08/04/23 07:44 Common normals: no apparent distress, oriented x3, alert and well nourished General appearance: cooperative Orientation/consciousness: Yes awake HENMT Common normals: normocephalic, head/scalp atraumatic, hearing grossly normal bilaterally, external nose normal and moist oral mucous membranes Eye Common normals: PERRL, EOMs intact bilaterally, conjunctivae normal and no scleral icterus Alignment: alignment normal Eyelid: eyelids normal Neck & C-Spine Common normals: full ROM, supple and no JVD Chest Common normals: inspection of chest normal Chest: symmetrical chest wall rise Respiratory Common normals: normal respiratory effort, no retractions and no use of accessory muscles Effort & inspection: able to speak in complete sentences and prolonged expiratory phase Auscultation: wheezes (LLL EE) Cardio Common normals: no JVD, regular rate, regular rhythm, S1 normal heart sound, S2 normal heart sound, no gallops, no clicks, no murmurs, no rub and peripheral pulses 2+ throughout GI Common normals: Normal to inspection, nondistended, normoactive bowel sounds present, soft to palpation, non-tender, no hepatosplenomegaly, no masses and no bruits Bladder/kidney exam: bladder normal to palpation Back & Pelvis Common normals: thoracic and lumbar spine normal to inspection Extremity Common normals: normal capillary refill and no pedal edema General: normal exam except as noted; no clubbing and no cyanosis Right lower extremity: foot and digits (Sm plantar wound, min serosang drng, surrounding erythema) Neuro [place] Coma Scale: GCS not evaluated Common normals: CN's II-XII intact bilaterally, moves all extremities and no focal motor deficits Speech: speech normal Sensory exam: sensory level loss detected (BLE hips to toes, chronic) Motor exam: strength 5/5 throughout Psych Common normals: mental status grossly normal, thought process normal, affect normal and activity/motor behavior normal Results Labs Labs: Short CBC 08/03/23 08/04/23 Range/Units 19:08 04:16 WBC 14.6 H 11.6 H (4.0-11.0) 10^3/uL Hgb 11.8 L 9.6 L (14.0-18.0) g/dL Hct 38.9 L 32.6 L (42.0-54.0) % Plt Count 252 206 (150-450) 10^3/uL BMP 08/03/23 08/04/23 19:08 04:16 Sodium 133 L 132 L Potassium 3.7 3.5 Chloride 92 L 96 L Carbon Dioxide 31.0 29.2 BUN 23.0 H 20.0 H Creatinine 2.45 H 2.06 H Glucose 310 H 329 H Calcium 9.3 8.0 L Liver Function 08/03/23 08/04/23 Range/Units 19:08 04:16 Total Bilirubin 0.6 0.4 (0.2-1.0) mg/dL AST <5 L <5 L (15-37) U/L ALT 13 L 9 L (16-63) U/L Alkaline Phosphatase 134 H 109 (46-116) U/L Albumin 3.3 L 2.4 L (3.4-5.0) g/dL ABG ABG results: 08/03/23 19:08 VBG pH 7.432 H VBG pCO2 44.8 Pulse Oximetry Attestation: I have reviewed the pertinent pulse oximetry results. Assessment and Plan Assessment and Plan (1) Sepsis: Assessment and Plan: ACUTE * Adm inpatient * AEB on admission: * SEP1 Criteria: HR 110, RR 24, WBC 14.6, Source - R diabetic foot wound w/ cellulitis * SEP3 Criteria: SOFA score of 3 (Plts 148, Cr 2.45), Source - R diabetic foot wound w/ cellulitis * Lactic acid 3.2 (Repeat 1.6 after IVF) * (BP and mentation at baseline) * BC x 2 drawn in ED - Pending * Add Procalcitonin to AM labs * 1 liter IVF bolus in ED * NS at 100 ml/hr * See diabetic foot infection for ABX * CBC, CMP daily Qualifiers: Sepsis acute organ dysfunction status: with acute organ dysfunction Sepsis type: sepsis due to unspecified organism Severe sepsis acute organ dysfunction type: encephalopathy (2) Diabetic infection of right foot: Assessment and Plan: ACUTE * Puncture wound to R plantar 2nd metatarsal head area of unknown chronicity d/t advanced neuropathy * Surrounding cellulitic changes to most of the plantar surface of foot - swelling, erythema, calor, tenderness * Scant serosang drng * ESR 118, CRP 14.63 on admission, trending down today on repeat labs * IVPB Levaquin and Vanco * Obtain wound culture of drainage if possible * Percocet PRN for pain * Podiatry c/s - we appreciate Dr Elias's assistance with this pt's care * Possible I&D in the OR pending clinical course * We defer further imaging study work up to the podiatry service * Tdap now - last tetanus shot more than 10 yrs ago (3) ROEL (acute kidney injury): Assessment and Plan: ACUTE Laboratory Tests 08/03/23 08/04/23 19:08 04:16 BUN 23.0 H 20.0 H Creatinine 2.45 H 2.06 H Est GFR (Non-Af Amer) 27 L 33 L * 2/2 sepsis, acute infection * Baseline CKD 3 * BUN 17-23, Cr 1.72-2.0, GFR 34-42 * IVF as above * Hold renal toxic medications including home lasix, metformin, valsartan, and HCTZ * Continue IVPB Vancomycin for now - monitor renal fx closely * CMP daily (4) COPD (chronic obstructive pulmonary disease): Assessment and Plan: CHRONIC * Albuterol nebs q4h prn * No clinical concern for acute exacerbation at this time (5) DM2 (diabetes mellitus, type 2): Assessment and Plan: CHRONIC * Continue home glimeperide, Januvia * Hold home metformin d/t renal toxicity/ROEL * Hold home Jardiance d/t risk for euglycemic DKA in setting of sepsis and acute infection * ACHS glucometer checks * High dose SSI for glucose correction * CC diet, 1800 kcal * Consult DM2 educator * A1C in AM (6) Neuropathy: Assessment and Plan: CHRONIC * Continue home Lyrica (7) GERD (gastroesophageal reflux disease): Assessment and Plan: CHRONIC * Continue home PPI (8) Coronary artery disease: Assessment and Plan: CHRONIC * Continue home ASA, Plavix, BB, statin * Hold home ARB d/t ROEL (9) BPH with obstruction/lower urinary tract symptoms: Assessment and Plan: CHRONIC * Continue home tamsulosin (10) Hyperlipidemia: Assessment and Plan: CHRONIC * continue home statin (11) Tobacco abuse: Assessment and Plan: CHRONIC * 1PPD smoker for 40+ yrs * 21 mg nicotine patch daily * Xanax PRN for tobacco cravings/agitation (12) Migraine headache: Assessment and Plan: CHRONIC * Continue home Nurtec (13) Dementia: Assessment and Plan: CHRONIC * Not on any medication for dementia at this time * Reports chronic, intermittent episodes of confusion/delirium * Currently A&O x 3 (14) Hypertension: Assessment and Plan: CHRONIC * Continue home imdur, metoprolol * Hold home valsartan/HCTZ d/t ROEL * BP currently well controlled * PRN IVP Hydralazine for HTN (15) CHF (congestive heart failure): Assessment and Plan: CHRONIC * Hold home lasix for now d/t ROEL * Resume when clinically indicated * Daily weights, strict I&O * No clinical concern for acute decompensation
[2023-08-04 11:32] LABS: Glucometer 291 mg/dL (74-106)
[2023-08-04] MEDS: NICOTINE 21 MG PATCH.TD24 TD (12:08)
[2023-08-04] MEDS: TAMSULOSIN HCL 0.4 MG CAPSULE 0.400000000000000022 MG PO ×2 (13:14→21:30)
--- NOTE | 2023-08-04 13:38 | PM.PODCN1 ---
[facility] - Podiatry Data of Consult Patient: new to practice Consult date: 08/04/23 Requesting physician: Elle Jack NP Primary care provider: Jenaro Valadez DO Consult Narrative Reason for consult: right foot puncture wound, abscess and cellulitis Narrative: Patient is a pleasant 38-year-old male with PMH poorly controlled DM2, CAD s/p [place] (2014), HTN, GERD, migraine headaches, and BPH; presented to the [facility] with complaints of redness to the plantar aspect of his right foot worsening over the past 1 week.. Patient states been doing some home remodeling and feels he may have stepped on something as there was some drainage from small bottom of his foot but does not remember any specific incident due to his peripheral neuropathy. Upon presentation to the emergency department WBC was 14.6, elevated ESR and CRP heart rate 110 respiratory's 24. He was initiated on IV antibiotics and x-rays were obtained. Podiatry is consulted for further management. Admits to moderate pain along the plantar medial midfoot. At time of exam he denies any other pedal complaints or any constitutional symptoms. cc:: CC: Elle Jack NP [facility] Medical History (Updated 08/04/23 @ 12:46 by Elle Jack NP) CHF (congestive heart failure) ?I50.9 - Heart failure, unspecified (ICD-10) Migraine headache ?G43.909 - Migraine, unspecified, not intractable, without status migrainosus (ICD-10) Tobacco abuse ?Z72.0 - Tobacco use (ICD-10) DM2 (diabetes mellitus, type 2) ?E11.9 - Type 2 diabetes mellitus without complications (ICD-10) Carpal tunnel syndrome ?G56.00 - Carpal tunnel syndrome, unspecified upper limb (ICD-10) Back pain ?M54.9 - Dorsalgia, unspecified (ICD-10) Arthritis ?M19.90 - Unspecified osteoarthritis, unspecified site (ICD-10) Restless leg ?G25.81 - Restless legs syndrome (ICD-10) GERD (gastroesophageal reflux disease) ?K21.9 - Gastro-esophageal reflux disease without esophagitis (ICD-10) High cholesterol ?E78.00 - Pure hypercholesterolemia, unspecified (ICD-10) Myocardial infarction ?I21.9 - Acute myocardial infarction, unspecified (ICD-10) Coronary artery disease ?I25.10 - Atherosclerotic heart disease of [place] coronary artery without angina pectoris (ICD-10) BPH with obstruction/lower urinary tract symptoms ?N40.1 - Benign prostatic hyperplasia with lower urinary tract symptoms (ICD-10) ?N13.8 - Other obstructive and reflux uropathy (ICD-10) Dementia ?F03.90 - Unspecified dementia, unspecified severity, without behavioral disturbance, psychotic disturbance, mood disturbance, and anxiety (ICD-10) CKD stage 4 due to type 2 diabetes mellitus ?E11.22 - Type 2 diabetes mellitus with diabetic chronic kidney disease (ICD-10) ?N18.4 - Chronic kidney disease, stage 4 (severe) (ICD-10) Hyperlipidemia ?E78.5 - Hyperlipidemia, unspecified (ICD-10) Polyp of prostate with urinary obstruction ?N40.1 - Benign prostatic hyperplasia with lower urinary tract symptoms (ICD-10) ?N13.8 - Other obstructive and reflux uropathy (ICD-10) Femoral artery stenosis ?I70.209 - Unspecified atherosclerosis of [place] arteries of extremities, unspecified extremity (ICD-10) Glaucoma ?H40.9 - Unspecified glaucoma (ICD-10) Carpal tunnel syndrome, bilateral ?G56.03 - Carpal tunnel syndrome, bilateral upper limbs (ICD-10) Gout ?M10.9 - Gout, unspecified (ICD-10) COPD (chronic obstructive pulmonary disease) ?J44.9 - Chronic obstructive pulmonary disease, unspecified (ICD-10) Neuropathy ?G62.9 - Polyneuropathy, unspecified (ICD-10) Chronic kidney disease ?N18.9 - Chronic kidney disease, unspecified (ICD-10) Hypertension ?I10 - Essential (primary) hypertension (ICD-10) Weakness ?R53.1 - Weakness (ICD-10) Surgical History (Updated 08/04/23 @ 12:08 by Elle Jack NP) History of heart artery stent ?Z95.5 - Presence of coronary angioplasty implant and graft (ICD-10) History of spinal surgery ?Z98.890 - Other specified postprocedural states (ICD-10) History of colonoscopy ?Z98.890 - Other specified postprocedural states (ICD-10) History of carpal tunnel release ?Z98.890 - Other specified postprocedural states (ICD-10) History of cataract extraction ?Z98.49 - Cataract extraction status, unspecified eye (ICD-10) History of appendectomy ?Z90.49 - Acquired absence of other specified parts of digestive tract (ICD-10) History of heart artery stent ?Z95.5 - Presence of coronary angioplasty implant and graft (ICD-10) Family History (Updated 03/03/23 @ 18:46 by Darling Sharma RN) Mother Family history of CHF (congestive heart failure) Family history of diabetes mellitus Family history of hypertension Grandfather Family history of CHF (congestive heart failure) Family history of diabetes mellitus Family history of hypertension Family history of myocardial infarction Grandmother Family history of hypertension Social History Within the past year, how often did you have a drink containing alcohol: never Score interpretation: A score less than 4 is consistent with normal alcohol consumption. Smoking status: Current every day smoker What tobacco products do you use: cigarettes Cigarettes per day: 20 Years smoked: 42 Smoking pack-years: 42.00 Non-prescribed substance use: denies use Highest level of school completed/degree received: high school graduate Gender Identity: male Exam Narrative Exam Narrative: Vascular: DP and PT pulses palpable. CFT intact to digits. Skin temperature is warm to warm with mild increased to the right plantar medial foot. Localized erythema to the plantar medial instep of the right foot, no ascending lymphangitis. Mild nonpitting edema to the right foot Neuro: Light touch and gross sensation diminished. Protective sensation absent. Derm: Punctate full-thickness ulceration to the plantar central aspect of the right forefoot, proximal to the second metatarsal head with overlying hyperkeratosis and underlying fluctuance. Following debridement, wound measures approximately 0.4 x 0.4 cm x 2.5 cm with probing distally to deep fascia. No apparent sinus tract approximately. Approximately 3 cc of purulent sanguinous drainage was expressed. Mild malodor. No fluctuance crepitus or bogginess following debridement. No Signs of superficial epidermolysis. MSK: Muscle strength and range of motion full, palpatory tenderness elicited directly to the ulceration site as well as the plantar medial instep. Compartments are soft compressible, no pain with calf or thigh compression.. Constitutional Vital Signs, click to edit/add: Last Vital Signs Temp 97.9 F 08/04/23 12:00 Pulse 80 03/01/24 12:00 Resp 20 08/04/23 12:00 BP 108/70 08/04/23 12:00 Pulse Ox 96 08/04/23 12:00 O2 Del Method Room Air 08/04/23 12:00 Assessment and Plan Assessment and Plan (1) Sepsis: Qualifiers: Sepsis acute organ dysfunction status: with acute organ dysfunction Sepsis type: sepsis due to unspecified organism Severe sepsis acute organ dysfunction type: encephalopathy (2) Diabetic infection of right foot: (3) ROEL (acute kidney injury): (4) COPD (chronic obstructive pulmonary disease): (5) DM2 (diabetes mellitus, type 2): (6) Neuropathy: (7) GERD (gastroesophageal reflux disease): (8) Coronary artery disease: (9) BPH with obstruction/lower urinary tract symptoms: (10) Hyperlipidemia: (11) Tobacco abuse: (12) Migraine headache: (13) Dementia: (14) Hypertension: (15) CHF (congestive heart failure): Plan Patient examined evaluated. All findings discussed with patient all questions answered by satisfaction. Pertinent labs and imaging reviewed. Leukocytosis Downtrending at 11.6 today, lactate improved to 1.6. ESR elevated at 89 and CRP elevated at 11.6. A1c is 7.9 clinical exam and x-ray findings discussed with patient. X-rays not reveal any soft tissue emphysema nor any apparent foreign body. Excisional debridement was performed at bedside utilizing curette to excise overlying hyperkeratotic tissue and full-thickness ulceration underlying this and approximately 3 cc of 6. Purulent sanguinous drainage was expressed and culture swab was obtained. There was probing approximately 2.5 cm towards the second interspace of the distal forefoot, no apparent tracking or tunneling proximally. The area was dilated and no further purulence was expressed. The wound was then packed with half-inch iodoform packing and dry sterile dressing with light [place] compression was applied to the right lower extremity. In order MRI of the right foot to evaluate for residual abscess, or CT with contrast if unable to obtain MRI due to heart stents. . IV antibiotics until cultures result. Anticipate continuing IV antibiotics over the weekend, will follow on MRI/CT results and will I&D on day if no significant clinical improvement. May heel weight-bear as tolerated to the right foot breath improves. Will continue to follow, please call with questions or concerns.
--- NOTE | 2023-08-04 14:10 | CT_ITS ---
The [address] [address] Patient Name: MYRA FELIPE MRN: [id number] date: 1965 Sex: M Assigned Patient Location: MS Current Patient Location: MS Accession/Order Number: [id number] Exam Date: 08/04/2023 14:35 Report Date: 08/04/2023 15:37 At the request of: DUARTE MORALES Procedure: CT foot RT wo con EXAMINATION: CT foot RT wo con HISTORY: right foot abscess COMPARISON: No relevant comparison available. TECHNIQUE: Multi-planar CT images were created without IV contrast. Dose reduction techniques were achieved by using automated exposure control and/or adjustment of mA and/or kV according to patient size and/or use of iterative reconstruction technique. FINDINGS: BONES: No acute fracture or dislocation. No focal lytic or sclerotic changes are observed. Mild to moderate enthesopathic spurring of the calcaneus at the Achilles and plantar insertions. SOFT TISSUES: Mild diffuse soft tissue swelling. Identified along the plantar forefoot at the level of the first metatarsal head is a skin defect sagittal image #20 measuring 6 mm with hyperdensity extending into the subcutaneous fat measuring 1.4 x 0.6 x 0.7 cm cm best seen on sagittal image #22 coronal image 185, this does not extend to the underlying sesamoid bone which is 3 mm deep or EFFUSION: None visible. OTHER: Negative. CT/CT foot RT wo con IMPRESSION: 1.4 x 0.6 x 0.7 cm hyperdense and air containing lesion extending from the plantar forefoot at the level of the lateral sesamoid/first metatarsal head. A small abscess is favored No evidence of osteomyelitis Electronically authenticated by: EVAN HODGES Date: 08/04/2023 15:37
[2023-08-04] MEDS: GLIMEPIRIDE 2 MG TABLET PO (16:39)
[2023-08-04 16:42] LABS: Glucometer 332 mg/dL (74-106)
[2023-08-04] MEDS: VANCOMYCIN HCL 1,250 MG in 0.9 % SODIUM CHLORIDE 250 ML 250 MG IV (19:52)
[2023-08-04 20:51] LABS: Glucometer 185 mg/dL (74-106)
[2023-08-04] MEDS: AMITRIPTYLINE HCL 50 MG TABLET 100 MG PO (21:30)
[2023-08-05 00:04] VITALS: BP 107/65; PULSE 94; RESP 18; TEMP 36.9; O2SAT 92
[2023-08-05 04:12] VITALS: BP 128/77; PULSE 97; RESP 20; TEMP 36.9; O2SAT 91
[2023-08-05] MEDS: PREGABALIN 100 MG CAPSULE 200 MG PO ×3 (04:44→21:10)
[2023-08-05] MEDS: OXYCODONE HCL/ACETAMINOPHEN 5MG/325MG 1 TAB PO ×5 (04:45→23:10)
--- NOTE | 2023-08-05 04:49 | PC.NURSE ---
Per patient stated he was just asked his weight. Actual weight obtained this morning.
[2023-08-05 05:05] LABS: Basophils Absolute Auto 0.1 10^3/uL (0.0-0.1); Basophils Percent Auto 0.7 % (0.2-2.0); Eosinophils Absolute Auto 0.3 10^3/uL (0.0-0.7); Eosinophils Percent Auto 2.5 % (0.9-7.0); Hematocrit 31.8 % (42.0-54.0); Hemoglobin 9.4 g/dL (14.0-18.0); Immature Granulocytes Abs Auto 0.05 10^3/uL (0.00-0.03); Immature Granulocytes Pct Auto 0.4 % (0.0-0.5); Lymphocytes Absolute Auto 1.5 10^3/uL (1.2-3.8); Lymphocytes Percent Auto 11.8 % (20.5-60.0); Mean Corpuscular HGB Conc 29.6 g/dL (29.9-35.2); Mean Corpuscular Hemoglobin 22.4 pg (25.9-34.0); Mean Corpuscular Volume 75.9 fL (80.0-94.0); Mean Platelet Volume 11.2 fL (9.5-13.5); Monocytes Absolute Auto 1.3 10^3/uL (0.3-0.8); Monocytes Percent Auto 10.7 % (1.7-12.0); Neutrophils Absolute Auto 9.1 10^3/uL (1.4-6.5); Neutrophils Percent Auto 73.9 % (43.0-75.0); Platelet Count 184 10^3/uL (150-450); Red Blood Count 4.19 10^6/uL (4.70-6.10); Red Cell Distribution Width 16.8 % (11.0-15.0); White Blood Count 12.3 10^3/uL (4.0-11.0)
[2023-08-05 05:34] LABS: Estimated Average Glucose 214 mg/dL; Glycohemoglobin A1C 9.1 % (4.5-6.2)
[2023-08-05 05:48] LABS: Alanine Aminotransferase 11 U/L (16-63); Albumin Globulin Ratio 0.6; Albumin Level 2.3 g/dL (3.4-5.0); Alkaline Phosphatase 111 U/L (46-116); Anion Gap 15.1; Aspartate Amino Transferase 11 U/L (15-37); BUN Creatinine Ratio 10.1; Bilirubin Total 0.5 mg/dL (0.2-1.0); Calcium 8.1 mg/dL (8.5-10.1); Carbon Dioxide 25.6 mmol/L (21.0-32.0); Chloride 101 mmol/L (98-107); Estimated GFR (African America 51 (>=60); Estimated GFR (Non-African Ame 42 (>=60); Globulin 4.1 g/dL; Glucose 111 mg/dL (74-106); Potassium 3.7 mmol/L (3.5-5.1); Sodium 138 mmol/L (136-145); Total Protein 6.4 g/dL (6.4-8.2)
[2023-08-05] MEDS: 0.9 % SODIUM CHLORIDE 1,000 ML 100 ML IV ×2 (07:42→21:11)
[2023-08-05 08:00] VITALS: BP 126/66; PULSE 93; RESP 18; TEMP 36.8; O2SAT 91
[2023-08-05] MEDS: ENSURE HP 237 ML LIQUID PO ×2 (08:53→21:10)
[2023-08-05] MEDS: METOPROLOL TARTRATE 100 MG TABLET 50 MG PO ×2 (08:53→21:10)
[2023-08-05] MEDS: JUVEN PACKET 1 PACKET PO ×2 (08:53→21:10)
[2023-08-05] MEDS: GLIMEPIRIDE 2 MG TABLET PO ×2 (08:53→17:12)
[2023-08-05] MEDS: OMEPRAZOLE 40 MG CAPSULE.DR PO (08:53)
[2023-08-05] MEDS: PROSTAT 15 GM PROTEIN/100 CAL 30 ML LIQUID PACKET PO ×2 (08:53→21:10)
[2023-08-05] MEDS: SITAGLIPTIN PHOSPHATE 50 MG TABLET 100 MG PO (08:53)
[2023-08-05] MEDS: ATORVASTATIN CALCIUM 40 MG TABLET 80 MG PO (08:53)
[2023-08-05] MEDS: CLOPIDOGREL BISULFATE 75 MG TABLET PO (08:54)
[2023-08-05] MEDS: ASPIRIN 81 MG TABLET.DR PO (08:54)
[2023-08-05] MEDS: TAMSULOSIN HCL 0.4 MG CAPSULE 0.400000000000000022 MG PO ×2 (08:54→21:10)
[2023-08-05] MEDS: ISOSORBIDE MONONITRATE 30 MG TAB.ER.24H PO (08:54)
[2023-08-05] MEDS: AZTREONAM 2,000 MG in 0.9 % SODIUM CHLORIDE 100 ML 100 MG IV ×2 (08:56→17:12)
--- NOTE | 2023-08-05 09:57 | P.PN_ITS ---
Progress Note: Subjective Subjective Interval history: Patient had fever overnight, no other complaints, pain fairly well-controlled. Exam Constitutional Vital Signs, click to edit/add: Last Vital Signs Temp 98.2 F 08/05/23 08:00 Pulse 93 H 08/05/23 08:00 Resp 18 08/05/23 08:00 BP 126/66 08/05/23 08:00 Pulse Ox 91 L 08/05/23 08:00 O2 Del Method Room Air 08/05/23 08:00 Documenting provider has reviewed patient's vital signs: yes Common normals: no apparent distress Respiratory Common normals: normal respiratory effort and no retractions Cardio Common normals: regular rate and regular rhythm GI Common normals: Normal to inspection, nondistended, normoactive bowel sounds present and soft to palpation Extremity Common normals: abnormal to inspection ( See eval by podiatry) Progress Note: Objective Labs Labs: Short CBC 08/05/23 Range/Units 04:04 WBC 12.3 H (4.0-11.0) 10^3/uL Hgb 9.4 L (14.0-18.0) g/dL Hct 31.8 L (42.0-54.0) % Plt Count 184 (150-450) 10^3/uL BMP 08/05/23 04:04 Sodium 138 Potassium 3.7 Chloride 101 Carbon Dioxide 25.6 BUN 17.0 Creatinine 1.68 H Glucose 111 H Calcium 8.1 L Liver Function 08/05/23 Range/Units 04:04 Total Bilirubin 0.5 (0.2-1.0) mg/dL AST 11 L (15-37) U/L ALT 11 L (16-63) U/L Alkaline Phosphatase 111 (46-116) U/L Albumin 2.3 L (3.4-5.0) g/dL Progress Note: A&P Assessment and Plan (1) Sepsis: Assessment and Plan: ACUTE * Resolved * Remains hemodynamically stable. * Sec to UTI - check on gnosis results. Qualifiers: Sepsis acute organ dysfunction status: with acute organ dysfunction Sepsis type: sepsis due to unspecified organism Severe sepsis acute organ dysfunction type: encephalopathy (2) Diabetic infection of right foot: Assessment and Plan: See debridement this listed by podiatry (3) ROEL (acute kidney injury): Assessment and Plan: ACUTE * Better today, on admission was 42% above baseline (4) COPD (chronic obstructive pulmonary disease): Assessment and Plan: CHRONIC * Duonebs as needed (5) DM2 (diabetes mellitus, type 2): Assessment and Plan: Increase insulin sliding scale (6) Neuropathy: Assessment and Plan: CHRONIC * C/w home lyrica. (7) GERD (gastroesophageal reflux disease): (8) Coronary artery disease: Assessment and Plan: Denies chest pain (9) BPH with obstruction/lower urinary tract symptoms: (10) Hyperlipidemia: Assessment and Plan: CHRONIC * C/w statin (11) Tobacco abuse: (12) Migraine headache: (13) Dementia: Assessment and Plan: CHRONIC * Mild dementia at baseline. * Back to baseline mental status. * Monitor (14) Hypertension: Assessment and Plan: CHRONIC * Continue Losartan (sub for home valsartan). * BP adequately controlled (15) CHF (congestive heart failure): (16) Acute UTI: Assessment and Plan: ACUTE * Repeat urine culture, concern for wound causing recurrent fevers, up (17) Metabolic encephalopathy: Assessment and Plan: ACUTE * Resolved * Remains at baseline mental status. * MRI head negative for stroke (18) Lactic acid acidosis: Assessment and Plan: ACUTE * Resolved * due to sepsis/UTI (19) Suspected cerebrovascular accident (CVA): Assessment and Plan: ACUTE * Ruled out * MRI brain negative for stroke. * No clinical concern for CVA and neurological symptoms were likely 2/2 sepsis (20) Left arm pain: Assessment and Plan: ACUTE * 2/2 fall w/ rib trauma * Resolving * Encouraged full ROM attempts (21) Diabetes: Assessment and Plan: CHRONIC * Increase sliding scale Qualifiers: Diabetes mellitus type: type 2 Diabetes mellitus complication status: with kidney complications Diabetes mellitus complication detail: with chronic kidney disease Chronic kidney disease stage: stage 4 (severe) (22) CKD stage 4 due to type 2 diabetes mellitus: Assessment and Plan: CHRONIC * Resolved * Cr back to baseline. Plan Debridement is continuing by podiatry, may need further surgical intervention in 2 days. Added diagnosis: Hyponatremia-improved Leukocytosis-deteriorated, see above for change in antibiotics
--- NOTE | 2023-08-05 10:34 | PM.ORONB ---
Brief Operative Note Date of procedure: 08/05/23 Pre-op diagnosis: right foot abscess, severe diabetic foot infection Post-op diagnosis: same as pre-op Procedure: PROCEDURES PERFORMED: incision and drainage of deep abscess beneath the fascia, right foot INTRAOPERATIVE FINDINGS: Preoperative wound measurements 0.2 x 0.3 x 0.6 cm. erythema on the plantar foot as improved. upon removing packing small amount of purulence and coagulated blood was noted. Wound did tunnel distally and probed to flexor tendon. Given patient's profound neuropathy anesthesia was not required PROCEDURE IN DETAIL: at bedside correct side and site were confirmed with patient. The wound was excisionally debrided with a scalpel and scissors. small amount of purulence was evacuated approximately 1 cc in addition to hematoma. a hemostat was used to bluntly dissect and confirm no additional purulence was noted or tracking along the tendon. The site was irrigated with sterile saline then soft tissue swab was used to obtain a specimen from the wound base. Hemostasis was controlled with pressure and the wound was packed with MeSalt packing. Dry sterile dressing applied. Postoperative wound measurements: 0.5 x 0.5 x 1 cm with 1.5 cm of tunneling distally. POSTOPERATIVE PLAN: Continue IV antibiotics & follow cultures Patient may require more extensive debridement in OR pending his course over next 24-48 hours I will reassess tomorrow Notified Dr. Bryant of plan Anesthesia: none Surgeon: Fredy Elias Estimated blood loss (mL): 10 Pathology: other (swabs of wound bed post debridement/I&D) Condition: stable
[2023-08-05 11:54] VITALS: BP 146/76; PULSE 107; RESP 20; TEMP 37; O2SAT 95
[2023-08-05] MEDS: NICOTINE 21 MG PATCH.TD24 TD (13:11)
[2023-08-05 13:16] LABS: Glucometer 281 mg/dL (74-106)
[2023-08-05] MEDS: INSULIN ASPART 300 UNIT/3 ML PEN SUBQ ×3 (13:16→21:26)
[2023-08-05 14:50] VITALS: BP 148/84; PULSE 91; RESP 18; TEMP 37.1; O2SAT 94
[2023-08-05] MEDS: KETOROLAC TROMETHAMINE 30 MG/ML VIAL 15 MG IVP (15:22)
[2023-08-05 15:41] LABS: Bilirubin Urine NEGATIVE (NEGATIVE); Blood Urine NEGATIVE (NEGATIVE); Clarity Urine CLEAR (CLEAR); Color Urine LT. YELLOW (YELLOW); Glucose Urine UA >=1000 mg/dL (NEGATIVE); Ketones Urine NEGATIVE (NEGATIVE); Leukocyte Esterase Urine NEGATIVE (NEGATIVE); Nitrite Urine NEGATIVE (NEGATIVE); Protein Urine NEGATIVE (NEG/TRACE); Specific Gravity Urine <=1.005 (1.005-1.025); Urobilinogen Urine 0.2 EU/dL (0.2-1.0)
[2023-08-05 15:49] LABS: Bacteria Urine TRACE #/HPF (NONE SEEN); Cast Seen? NONE SEEN #/LPF (NONE SEEN); Crystals Seen? None Seen #/HPF (None Seen); Mucus Urine NONE SEEN (NONE SEEN); RBC Urine NONE SEEN #/HPF (0-2); Squamous Epithelial Cell Urine RARE #/LPF (NONE/RARE); WBC Urine NONE SEEN #/HPF (NONE SEEN)
[2023-08-05 16:29] LABS: Glucometer 293 mg/dL (74-106)
--- NOTE | 2023-08-05 17:10 | XR_ITS ---
[address] [address] Patient Name: MYRA FELIPE MRN: [id number] date: 1965 Sex: M Assigned Patient Location: MS Current Patient Location: MS Accession/Order Number: [id number] Exam Date: 08/05/2023 19:20 Report Date: 08/05/2023 20:10 At the request of: FLAQUITO ZAMAN Procedure: XR chest 2V XR chest 2V 08/05/2023 6:20 PM [employer]: History: shoulder pain Comparison: 03/30/2023 Technique: 2 view chest Findings: The cardiomediastinal silhouette is normal. The lungs are clear without infiltrate, effusion, or pneumothorax. The bones are intact. XR/XR chest 2V Impression: No acute cardiopulmonary process. Electronically authenticated by: JACKIE MELTON Date: 08/05/2023 20:10
--- NOTE | 2023-08-05 17:10 | XR_ITS ---
The [address] [address] Patient Name: MYRA FELIPE MRN: [id number] date: 1965 Sex: M Assigned Patient Location: MS Current Patient Location: MS Accession/Order Number: [id number] Exam Date: 08/05/2023 19:20 Report Date: 08/05/2023 20:09 At the request of: FLAQUITO ZAMAN Procedure: XR shoulder RT min 2V EXAM: XR shoulder RT min 2V HISTORY: Shoulder pain COMPARISON: None. TECHNIQUE: 3 views right shoulder FINDINGS: Moderate degenerative changes of the acromioclavicular joint. No acute fracture or aggressive osseous abnormality. Imaged right lung is clear. XR/XR shoulder RT min 2V IMPRESSION: Degenerative changes of the acromioclavicular joint without acute osseous abnormality. Electronically authenticated by: AYAAN GAMINO Date: 08/05/2023 20:09
[2023-08-05] MEDS: ACETAMINOPHEN 325 MG TABLET 650 MG PO (18:53)
[2023-08-05 20:00] VITALS: BP 120/72; PULSE 84; RESP 18; TEMP 36.9; O2SAT 92
[2023-08-05 20:22] LABS: Glucometer 218 mg/dL (74-106)
[2023-08-05] MEDS: AMITRIPTYLINE HCL 50 MG TABLET 100 MG PO (21:10)
[2023-08-05] MEDS: VANCOMYCIN HCL 1,250 MG in 0.9 % SODIUM CHLORIDE 250 ML 250 MG IV (21:11)
[2023-08-06] VITALS: BP 118/72; PULSE 74; RESP 16; TEMP 37.1; O2SAT 93
[2023-08-06] MEDS: AZTREONAM 2,000 MG in 0.9 % SODIUM CHLORIDE 100 ML 100 MG IV ×3 (00:01→17:12)
[2023-08-06 04:00] VITALS: BP 109/69; PULSE 80; RESP 16; TEMP 36.7; O2SAT 94
[2023-08-06] MEDS: PREGABALIN 100 MG CAPSULE 200 MG PO ×3 (05:02→21:13)
[2023-08-06 05:40] LABS: Basophils Absolute Auto 0.1 10^3/uL (0.0-0.1); Basophils Percent Auto 0.7 % (0.2-2.0); Eosinophils Absolute Auto 0.3 10^3/uL (0.0-0.7); Eosinophils Percent Auto 3.3 % (0.9-7.0); Hematocrit 30.1 % (42.0-54.0); Hemoglobin 8.8 g/dL (14.0-18.0); Immature Granulocytes Abs Auto 0.04 10^3/uL (0.00-0.03); Immature Granulocytes Pct Auto 0.4 % (0.0-0.5); Lymphocytes Absolute Auto 1.5 10^3/uL (1.2-3.8); Lymphocytes Percent Auto 14.4 % (20.5-60.0); Mean Corpuscular HGB Conc 29.2 g/dL (29.9-35.2); Mean Corpuscular Hemoglobin 22.5 pg (25.9-34.0); Mean Platelet Volume 12.2 fL (9.5-13.5); Monocytes Absolute Auto 1.1 10^3/uL (0.3-0.8); Monocytes Percent Auto 10.4 % (1.7-12.0); Neutrophils Absolute Auto 7.2 10^3/uL (1.4-6.5); Neutrophils Percent Auto 70.8 % (43.0-75.0); Platelet Count 190 10^3/uL (150-450); Red Blood Count 3.91 10^6/uL (4.70-6.10); White Blood Count 10.1 10^3/uL (4.0-11.0)
[2023-08-06 05:54] LABS: Alanine Aminotransferase 14 U/L (16-63); Albumin Globulin Ratio 0.5; Alkaline Phosphatase 127 U/L (46-116); Anion Gap 13.4; Aspartate Amino Transferase 16 U/L (15-37); BUN Creatinine Ratio 14.4; Bilirubin Total 0.4 mg/dL (0.2-1.0); Calcium 7.9 mg/dL (8.5-10.1); Chloride 99 mmol/L (98-107); Estimated GFR (African America 43 (>=60); Estimated GFR (Non-African Ame 36 (>=60); Glucose 297 mg/dL (74-106); Potassium 4.4 mmol/L (3.5-5.1); Sodium 133 mmol/L (136-145)
[2023-08-06 08:00] VITALS: BP 146/84; PULSE 87; RESP 18; TEMP 36.8; O2SAT 93
[2023-08-06] MEDS: JUVEN PACKET 1 PACKET PO ×2 (08:59→21:11)
[2023-08-06] MEDS: ENSURE HP 237 ML LIQUID PO ×2 (08:59→21:11)
[2023-08-06] MEDS: OXYCODONE HCL/ACETAMINOPHEN 5MG/325MG 1 TAB PO ×3 (09:00→18:44)
[2023-08-06] MEDS: OMEPRAZOLE 40 MG CAPSULE.DR PO (09:00)
[2023-08-06] MEDS: ASPIRIN 81 MG TABLET.DR PO (09:00)
[2023-08-06] MEDS: ISOSORBIDE MONONITRATE 30 MG TAB.ER.24H PO (09:00)
[2023-08-06] MEDS: SITAGLIPTIN PHOSPHATE 50 MG TABLET 100 MG PO (09:00)
[2023-08-06] MEDS: GLIMEPIRIDE 2 MG TABLET PO (09:00)
[2023-08-06] MEDS: CLOPIDOGREL BISULFATE 75 MG TABLET PO (09:00)
[2023-08-06] MEDS: PROSTAT 15 GM PROTEIN/100 CAL 30 ML LIQUID PACKET PO ×2 (09:00→21:11)
[2023-08-06] MEDS: METOPROLOL TARTRATE 100 MG TABLET 50 MG PO ×2 (09:00→21:13)
[2023-08-06] MEDS: ATORVASTATIN CALCIUM 40 MG TABLET 80 MG PO (09:00)
[2023-08-06] MEDS: TAMSULOSIN HCL 0.4 MG CAPSULE 0.400000000000000022 MG PO ×2 (09:01→21:13)
[2023-08-06] MEDS: ACETAMINOPHEN 325 MG TABLET 650 MG PO (09:01)
[2023-08-06] MEDS: INSULIN ASPART 300 UNIT/3 ML PEN SUBQ ×4 (09:03→21:12)
--- NOTE | 2023-08-06 11:05 | P.PN_ITS ---
Progress Note: Subjective Subjective Interval history: Patient feels well and no complaints. Afebrile over last 24hrs and WBC down to 10,000. Exam Narrative Exam Narrative: Dry blood noted on deep bandage. Packing pulled with coagulated blood. No pus. Erythema much improved in intensity and extent No POP. Able to fire all muscle groups without pain. Constitutional Vital Signs, click to edit/add: Last Vital Signs Temp 98.2 F 08/06/23 08:00 Pulse 87 08/06/23 08:00 Resp 18 08/06/23 08:00 BP 146/84 H 08/06/23 08:00 Pulse Ox 93 L 08/06/23 08:00 O2 Del Method Room Air 08/06/23 08:00 Progress Note: Objective Labs Labs: Short CBC 08/06/23 Range/Units 04:29 WBC 10.1 (4.0-11.0) 10^3/uL Hgb 8.8 L (14.0-18.0) g/dL Hct 30.1 L (42.0-54.0) % Plt Count 190 (150-450) 10^3/uL BMP 08/06/23 04:29 Sodium 133 L Potassium 4.4 Chloride 99 Carbon Dioxide 25.0 BUN 28.0 H Creatinine 1.95 H Glucose 297 H Calcium 7.9 L Liver Function 08/06/23 Range/Units 04:29 Total Bilirubin 0.4 (0.2-1.0) mg/dL AST 16 (15-37) U/L ALT 14 L (16-63) U/L Alkaline Phosphatase 127 H (46-116) U/L Albumin 2.0 L (3.4-5.0) g/dL Urine 08/05/23 Range/Units 15:20 Urine Color Lt. yellow (YELLOW) Urine Clarity Clear (CLEAR) Urine pH 6.0 (5.0-9.0) Ur Specific [place] <=1.005 A (1.005-1.025) Urine Protein Negative (NEG/TRACE) mg/dL Urine Glucose (UA) >=1000 A (NEGATIVE) mg/dL Progress Note: A&P Assessment and Plan (1) Sepsis: Qualifiers: Sepsis acute organ dysfunction status: with acute organ dysfunction Sepsis type: sepsis due to unspecified organism Severe sepsis acute organ dysfunction type: encephalopathy (2) Diabetic infection of right foot: (3) ROEL (acute kidney injury): (4) COPD (chronic obstructive pulmonary disease): (5) DM2 (diabetes mellitus, type 2): (6) Neuropathy: (7) GERD (gastroesophageal reflux disease): (8) Coronary artery disease: (9) BPH with obstruction/lower urinary tract symptoms: (10) Hyperlipidemia: (11) Tobacco abuse: (12) Migraine headache: (13) Dementia: (14) Hypertension: (15) CHF (congestive heart failure): (16) Acute UTI: (17) Metabolic encephalopathy: (18) Lactic acid acidosis: (19) Suspected cerebrovascular accident (CVA): (20) Left arm pain: (21) Diabetes: Qualifiers: Diabetes mellitus type: type 2 Diabetes mellitus complication status: with kidney complications Diabetes mellitus complication detail: with chronic kidney disease Chronic kidney disease stage: stage 4 (severe) (22) CKD stage 4 due to type 2 diabetes mellitus: Plan Patient seen & evaluated Discussed smoking cessation and blood sugar control - recommended he f/u with his PCP (Dr. Valadez) after d/c No surgery planned as patient has made significant improvement however remains at high risk for amputation - this was discussed with patient and - Recommended close f/u with me in the wound center this week Packing changed today and will change again tomorrow to ensure infection continues to resolve Dr. Bryant notified of plan - Strept from wound culture obtained on 08/03 - cont IV vanco while admitted - will be d/c on PO antibiotics (PCN allergy so possibly tetracycline + Bactrim DS)
--- NOTE | 2023-08-06 11:15 | P.PN_ITS ---
Progress Note: Subjective Subjective Interval history: No new complaints today Exam Constitutional Vital Signs, click to edit/add: Last Vital Signs Temp 98.2 F 08/06/23 08:00 Pulse 87 08/06/23 08:00 Resp 18 08/06/23 08:00 BP 146/84 H 08/06/23 08:00 Pulse Ox 93 L 08/06/23 08:00 O2 Del Method Room Air 08/06/23 08:00 Documenting provider has reviewed patient's vital signs: yes Common normals: no apparent distress Respiratory Common normals: normal respiratory effort and no retractions Cardio Common normals: regular rate and regular rhythm GI Common normals: Normal to inspection, nondistended, normoactive bowel sounds present and soft to palpation Extremity Common normals: abnormal to inspection ( See eval by podiatry) Progress Note: Objective Labs Labs: Short CBC 08/06/23 Range/Units 04:29 WBC 10.1 (4.0-11.0) 10^3/uL Hgb 8.8 L (14.0-18.0) g/dL Hct 30.1 L (42.0-54.0) % Plt Count 190 (150-450) 10^3/uL BMP 08/06/23 04:29 Sodium 133 L Potassium 4.4 Chloride 99 Carbon Dioxide 25.0 BUN 28.0 H Creatinine 1.95 H Glucose 297 H Calcium 7.9 L Liver Function 08/06/23 Range/Units 04:29 Total Bilirubin 0.4 (0.2-1.0) mg/dL AST 16 (15-37) U/L ALT 14 L (16-63) U/L Alkaline Phosphatase 127 H (46-116) U/L Albumin 2.0 L (3.4-5.0) g/dL Urine 08/05/23 Range/Units 15:20 Urine Color Lt. yellow (YELLOW) Urine Clarity Clear (CLEAR) Urine pH 6.0 (5.0-9.0) Ur Specific [place] <=1.005 A (1.005-1.025) Urine Protein Negative (NEG/TRACE) mg/dL Urine Glucose (UA) >=1000 A (NEGATIVE) mg/dL Progress Note: A&P Assessment and Plan (1) Sepsis: Assessment and Plan: ACUTE * Resolved * Remains hemodynamically stable. * Sec to UTI -check and repeat results, culture should be back tomorrow Qualifiers: Sepsis acute organ dysfunction status: with acute organ dysfunction Se psis type: sepsis due to unspecified organism Severe sepsis acute organ dysfunction type: encephalopathy (2) Diabetic infection of right foot: Assessment and Plan: See debridement this listed by podiatry (3) ROEL (acute kidney injury): Assessment and Plan: ACUTE * Elevated somewhat today, repeat fluid bolus (4) COPD (chronic obstructive pulmonary disease): Assessment and Plan: CHRONIC * Duonebs as needed (5) DM2 (diabetes mellitus, type 2): Assessment and Plan: Increase insulin sliding scale still elevated today, increase oral hypoglycemics (6) Neuropathy: Assessment and Plan: CHRONIC * C/w home lyrica. (7) GERD (gastroesophageal reflux disease): (8) Coronary artery disease: Assessment and Plan: Denies chest pain (9) BPH with obstruction/lower urinary tract symptoms: Assessment and Plan: On Flomax (10) Hyperlipidemia: Assessment and Plan: CHRONIC * C/w statin (11) Tobacco abuse: (12) Migraine headache: (13) Dementia: Assessment and Plan: CHRONIC * Mild dementia at baseline. * Back to baseline mental status. * Monitor (14) Hypertension: Assessment and Plan: CHRONIC * Continue Losartan (sub for home valsartan). * BP adequately controlled (15) CHF (congestive heart failure): (16) Acute UTI: Assessment and Plan: ACUTE * Repeat urine culture, concern for wound causing recurrent fevers (17) Metabolic encephalopathy: Assessment and Plan: ACUTE * Resolved * Remains at baseline mental status. * MRI head negative for stroke (18) Lactic acid acidosis: Assessment and Plan: ACUTE * Resolved * due to sepsis/UTI (19) Suspected cerebrovascular accident (CVA): Assessment and Plan: ACUTE * Ruled out * MRI brain negative for stroke. * No clinical concern for CVA and neurological symptoms were likely 2/2 sepsis (20) Left arm pain: Assessment and Plan: ACUTE * 2/2 fall w/ rib trauma * Resolving * Encouraged full ROM attempts (21) Diabetes: Assessment and Plan: CHRONIC * Increase sliding scale Qualifiers: Chronic kidney disease stage: stage 4 (severe) Diabetes mellitus complication detail: with chronic kidney disease Diabetes mellitus complication status: with kidney complications Diabetes mellitus type: type 2 (22) CKD stage 4 due to type 2 diabetes mellitus: Assessment and Plan: CHRONIC * Resolved * Cr back to baseline. Plan Debridement is continuing by podiatry, may need further surgical intervention in 1 days. Added diagnosis: Hyponatremia-Down somewhat today, repeat fluid bolus Leukocytosis-improved today after changing antibiotics yesterday
[2023-08-06 11:18] LABS: Glucometer 249 mg/dL (74-106)
[2023-08-06 12:00] VITALS: BP 114/68; PULSE 80; RESP 18; TEMP 36.8; O2SAT 93
[2023-08-06] MEDS: 0.9 % SODIUM CHLORIDE 1,000 ML 500 ML IV ×2 (12:25→14:53)
[2023-08-06] MEDS: DICLOFENAC SODIUM 100 GM TUBE TOPICAL ×3 (12:26→21:11)
[2023-08-06] MEDS: NICOTINE 21 MG PATCH.TD24 TD (12:28)
[2023-08-06] MEDS: ADACEL DIPH,PERTUSS(ACELL),TET VAC/PF 0.5 ML ADULT SYRINGE IM (12:32)
[2023-08-06 16:37] LABS: Glucometer 339 mg/dL (74-106)
[2023-08-06] MEDS: 0.9 % SODIUM CHLORIDE 1,000 ML 100 ML IV (17:07)
[2023-08-06] MEDS: GLIMEPIRIDE 2 MG TABLET 4 MG PO (17:12)
[2023-08-06 17:45] VITALS: BP 154/82; PULSE 78; RESP 18; TEMP 36.5; O2SAT 96
[2023-08-06 18:27] LABS: Vancomycin Trough 13.6 ug/mL (5.0-20.0)
[2023-08-06 19:33] VITALS: BP 136/70; PULSE 82; RESP 20; TEMP 36.8; O2SAT 94
--- NOTE | 2023-08-06 20:00 | RESP.RT ---
No PRN breathing tx given. Pt sleeping. No respiratory distress noted.
[2023-08-06 20:38] LABS: Glucometer 188 mg/dL (74-106)
[2023-08-06] MEDS: VANCOMYCIN HCL 1,250 MG in 0.9 % SODIUM CHLORIDE 250 ML 125 MG IV (20:38)
[2023-08-06] MEDS: AMITRIPTYLINE HCL 50 MG TABLET 100 MG PO (21:13)
[2023-08-07] VITALS: BP 126/72; PULSE 90; RESP 18; TEMP 37.2; O2SAT 92
[2023-08-07] MEDS: AZTREONAM 2,000 MG in 0.9 % SODIUM CHLORIDE 100 ML 100 MG IV ×2 (00:01→09:48)
[2023-08-07 04:00] VITALS: BP 128/74; PULSE 93; RESP 18; TEMP 37.3; O2SAT 94
[2023-08-07] MEDS: DICLOFENAC SODIUM 100 GM TUBE TOPICAL (05:04)
[2023-08-07] MEDS: OXYCODONE HCL/ACETAMINOPHEN 5MG/325MG 1 TAB PO ×3 (05:04→09:32)
[2023-08-07] MEDS: PREGABALIN 100 MG CAPSULE 200 MG PO (05:04)
[2023-08-07 05:34] LABS: Basophils Absolute Auto 0.1 10^3/uL (0.0-0.1); Basophils Percent Auto 0.7 % (0.2-2.0); Eosinophils Absolute Auto 0.5 10^3/uL (0.0-0.7); Eosinophils Percent Auto 3.9 % (0.9-7.0); Hematocrit 31.5 % (42.0-54.0); Hemoglobin 9.4 g/dL (14.0-18.0); Immature Granulocytes Abs Auto 0.09 10^3/uL (0.00-0.03); Immature Granulocytes Pct Auto 0.7 % (0.0-0.5); Lymphocytes Absolute Auto 1.5 10^3/uL (1.2-3.8); Lymphocytes Percent Auto 12.4 % (20.5-60.0); Mean Corpuscular HGB Conc 29.8 g/dL (29.9-35.2); Mean Corpuscular Hemoglobin 22.5 pg (25.9-34.0); Mean Corpuscular Volume 75.4 fL (80.0-94.0); Mean Platelet Volume 11.7 fL (9.5-13.5); Monocytes Absolute Auto 1.2 10^3/uL (0.3-0.8); Monocytes Percent Auto 10.1 % (1.7-12.0); Neutrophils Absolute Auto 8.7 10^3/uL (1.4-6.5); Neutrophils Percent Auto 72.2 % (43.0-75.0); Platelet Count 222 10^3/uL (150-450); Red Blood Count 4.18 10^6/uL (4.70-6.10); Red Cell Distribution Width 16.9 % (11.0-15.0)
[2023-08-07 05:51] LABS: Alanine Aminotransferase 21 U/L (16-63); Albumin Globulin Ratio 0.5; Albumin Level 2.1 g/dL (3.4-5.0); Alkaline Phosphatase 144 U/L (46-116); Anion Gap 12.9; Aspartate Amino Transferase 25 U/L (15-37); BUN Creatinine Ratio 19.4; Bilirubin Total 0.4 mg/dL (0.2-1.0); Calcium 8.1 mg/dL (8.5-10.1); Carbon Dioxide 24.7 mmol/L (21.0-32.0); Chloride 102 mmol/L (98-107); Estimated GFR (African America 50 (>=60); Estimated GFR (Non-African Ame 42 (>=60); Glucose 188 mg/dL (74-106); Potassium 4.6 mmol/L (3.5-5.1); Sodium 135 mmol/L (136-145); Total Protein 6.1 g/dL (6.4-8.2)
[2023-08-07] MEDS: 0.9 % SODIUM CHLORIDE 1,000 ML 100 ML IV (06:26)
[2023-08-07 07:57] LABS: Glucometer 224 mg/dL (74-106)
[2023-08-07 08:00] VITALS: BP 130/81; PULSE 82; RESP 16; TEMP 36.4; O2SAT 96
[2023-08-07] MEDS: INSULIN ASPART 300 UNIT/3 ML PEN SUBQ ×2 (08:04→11:35)
[2023-08-07] MEDS: GLIMEPIRIDE 2 MG TABLET 4 MG PO (08:09)
--- NOTE | 2023-08-07 08:56 | P.DS_ITS ---
DS: Providers Provider Date of admission: 08/03/23 21:17 Primary care physician: Jenaro Valadez DO Consults: 08/03/23 21:26 Consult to Podiatry Routine Consulting Provider: Fredy Elias Reason for consultation: R foot cellulitis Has provider been notified: Yes 08/04/23 11:16 Consult to Operating Engineer Routine Reason for consultation: Poor glycemic control Has provider been notified: No 08/07/23 08:50 Physical Therapy Eval and Treat Routine Reason for consultation: foot pain Has provider been notified: No DS: Diagnosis Discharge Diagnosis (1) Sepsis: Qualifiers: Sepsis acute organ dysfunction status: with acute organ dysfunction Sepsis type: sepsis due to unspecified organism Severe sepsis acute organ dysfunction type: encephalopathy (2) Diabetic infection of right foot: (3) ROEL (acute kidney injury): (4) COPD (chronic obstructive pulmonary disease): (5) DM2 (diabetes mellitus, type 2): (6) Neuropathy: (7) GERD (gastroesophageal reflux disease): (8) Coronary artery disease: (9) BPH with obstruction/lower urinary tract symptoms: (10) Hyperlipidemia: (11) Tobacco abuse: (12) Migraine headache: (13) Dementia: (14) Hypertension: (15) CHF (congestive heart failure): (16) Acute UTI: (17) Metabolic encephalopathy: (18) Lactic acid acidosis: (19) Suspected cerebrovascular accident (CVA): (20) Left arm pain: (21) Diabetes: Qualifiers: Chronic kidney disease stage: stage 4 (severe) Diabetes mellitus complication detail: with chronic kidney disease Diabetes mellitus complication status: with kidney complications Diabetes mellitus type: type 2 (22) CKD stage 4 due to type 2 diabetes mellitus: Plan yponatremia-Down somewhat today, repeat fluid bolus Leukocytosis-improved today after changing antibiotics yesterday DS: Summary Hospital Course Hospital Course: Admit for foot ulcer. Possible abscess. It was drained on 2 occasions and at the bedside, cultures repeated 2 days ago are still pending, pain is persisting, rest of his physical exam is overall improved. His white blood cell count is somewhat elevated today. Based on previous sensitivities doxycycline should cover the infection noted on wound, patient be evaluated by podiatry this morning, if nothing else significant found patient to be discharged home in improving condition. Medications see list. Follow-up with podiatry within the next week. Time Spent with Patient Time attestation: Total time spent providing and/or coordinating discharge services: Exam Constitutional Vital Signs, click to edit/add: Last Vital Signs Temp 97.6 F 08/07/23 08:00 Pulse 82 08/07/23 08:00 Resp 16 08/07/23 08:00 BP 130/81 08/07/23 08:00 Pulse Ox 96 08/07/23 08:00 O2 Del Method Room Air 08/07/23 08:00 Documenting provider has reviewed patient's vital signs: yes Common normals: no apparent distress Respiratory Common normals: normal respiratory effort and no retractions Cardio Common normals: regular rate and regular rhythm GI Common normals: Normal to inspection, nondistended, normoactive bowel sounds present and soft to palpation Extremity Common normals: abnormal to inspection ( See eval by podiatry) DS: Data Data Completed and Pending Labs on day of discharge: Labs from last 24 hours 08/07/23 08/07/23 08/06/23 07:56 04:42 20:36 WBC 12.0 H RBC 4.18 L Hgb 9.4 L Hct 31.5 L MCV 75.4 L MCH 22.5 L MCHC 29.8 L RDW 16.9 H Plt Count 222 MPV 11.7 Neut % (Auto) 72.2 Lymph % (Auto) 12.4 L [place] % (Auto) 10.1 Eos % (Auto) 3.9 Baso % (Auto) 0.7 Neut # (Auto) 8.7 H Lymph # (Auto) 1.5 [place] # (Auto) 1.2 H Eos # (Auto) 0.5 Baso # (Auto) 0.1 Abs Immat Gran (auto) 0.09 H Imm/Tot Granulo (auto) 0.7 H Sodium 135 L Potassium 4.6 Chloride 102 Carbon Dioxide 24.7 Anion Gap 12.9 BUN 33.0 H Creatinine 1.70 H Est GFR ( Amer) 50 L Est GFR (Non-Af Amer) 42 L BUN/Creatinine Ratio 19.4 Glucose 188 H Calcium 8.1 L Total Bilirubin 0.4 AST 25 ALT 21 Alkaline Phosphatase 144 H Total Protein 6.1 L Albumin 2.1 L Globulin 4.0 Albumin/Globulin Ratio 0.5 Vancomycin Trough POC Glucose 224 H 188 H 08/06/23 08/06/23 08/06/23 17:55 16:37 11:16 WBC RBC Hgb Hct MCV MCH MCHC RDW Plt Count MPV Neut % (Auto) Lymph % (Auto) [place] % (Auto) Eos % (Auto) Baso % (Auto) Neut # (Auto) Lymph # (Auto) [place] # (Auto) Eos # (Auto) Baso # (Auto) Abs Immat Gran (auto) Imm/Tot Granulo (auto) Sodium Potassium Chloride Carbon Dioxide Anion Gap BUN Creatinine Est GFR ( Amer) Est GFR (Non-Af Amer) BUN/Creatinine Ratio Glucose Calcium Total Bilirubin AST ALT Alkaline Phosphatase Total Protein Albumin Globulin Albumin/Globulin Ratio Vancomycin Trough 13.6 POC Glucose 339 H 249 H Preliminary micro results at discharge 08/04/23 23:09 - Preliminary Blood NO GROWTH AT 36-48 HOURS. FINAL TO FOLLOW. 08/04/23 23:04 Blood Culture Result 1 - Preliminary Blood NO GROWTH AT 36-48 HOURS. FINAL TO FOLLOW. 08/04/23 13:07 Wound Culture - Preliminary Foot - Right Strep agalactiae - (group b) 08/03/23 19:20 - Preliminary Blood NO GROWTH AT 36-48 HOURS. FINAL TO FOLLOW. 08/03/23 19:08 Blood Culture Result 1 - Preliminary Blood NO GROWTH AT 36-48 HOURS. FINAL TO FOLLOW. Discharge Plan Discharge Disposition: Home, Self-Care Condition: Good Discharge Medications: New doxycycline monohydrate 100 mg capsule 100 mg PO BID 14 Days Qty: 28 0RF Continued albuterol sulfate [ProAir HFA] 90 mcg/actuation HFA aerosol inhaler 2 inh inhalation Q4H PRN (Reason: shortness of breath or wheezing) aspirin 81 mg tablet,delayed release (DR/EC) 81 mg PO DAILY atorvastatin 80 mg tablet 80 mg PO DAILY clopidogrel 75 mg tablet 75 mg PO DAILY Jardiance 10 mg tablet 10 mg PO DAILY glimepiride 2 mg tablet 2 mg PO BID metformin 1,000 mg tablet 1,000 mg PO BID metoprolol tartrate 100 mg tablet 50 mg PO Q12H nitroglycerin 0.4 mg tablet, sublingual 0.4 mg sublingual Q5M PRN (Reason: chest pain) omeprazole 40 mg capsule,delayed release(DR/EC) 40 mg PO DAILY pregabalin 200 mg capsule 200 mg PO TID Januvia 100 mg tablet 100 mg PO DAILY valsartan-hydrochlorothiazide 160-12.5 mg tablet 1 tab PO DAILY tamsulosin [Flomax] 0.4 mg capsule 0.4 mg PO BID amitriptyline 100 mg tablet 100 mg PO BEDTIME Trulicity 1.5 mg/0.5 mL pen injector 1.5 mg SUBCUT QWEEK Ajovy Autoinjector 225 mg/1.5 mL auto-injector 225 mg SUBCUT .QMonth furosemide 40 mg tablet 40 mg PO DAILY isosorbide mononitrate 30 mg tablet extended release 24 hr 30 mg PO DAILY Nurtec ODT 75 mg tablet,disintegrating 75 mg PO DAILY Forms: Portal Instructions Follow Up Appointments: August 07 @ 11am at [facility] [address] [place] [address] Jenaro Valadez' office will call to schedule a follow up appt.
[2023-08-07] MEDS: ENSURE HP 237 ML LIQUID PO (09:30)
[2023-08-07] MEDS: JUVEN PACKET 1 PACKET PO (09:30)
[2023-08-07] MEDS: ATORVASTATIN CALCIUM 40 MG TABLET 80 MG PO (09:30)
[2023-08-07] MEDS: PROSTAT 15 GM PROTEIN/100 CAL 30 ML LIQUID PACKET PO (09:30)
[2023-08-07] MEDS: ASPIRIN 81 MG TABLET.DR PO (09:30)
[2023-08-07] MEDS: METOPROLOL TARTRATE 100 MG TABLET 50 MG PO (09:30)
[2023-08-07] MEDS: CLOPIDOGREL BISULFATE 75 MG TABLET PO (09:31)
[2023-08-07] MEDS: ISOSORBIDE MONONITRATE 30 MG TAB.ER.24H PO (09:31)
[2023-08-07] MEDS: SITAGLIPTIN PHOSPHATE 50 MG TABLET 100 MG PO (09:31)
[2023-08-07] MEDS: TAMSULOSIN HCL 0.4 MG CAPSULE 0.400000000000000022 MG PO (09:31)
[2023-08-07] MEDS: OMEPRAZOLE 40 MG CAPSULE.DR PO (09:31)
--- NOTE | 2023-08-07 09:31 | CM.NOTE ---
Rounds made with Dr. Bryant. Plan for discharge today.
[2023-08-07 10:11] VITALS: O2SAT 96
--- NOTE | 2023-08-07 10:18 | PM.PN ---
Progress Note: Subjective Subjective Interval history: No new complaints today. Has been out of bed without issue. Denies systemic SOI. Exam Narrative Exam Narrative: Wound plantar central right foot with maceration. No erythema. No pus. No POP. Constitutional Vital Signs, click to edit/add: Last Vital Signs Temp 97.6 F 08/07/23 08:00 Pulse 82 08/07/23 08:00 Resp 16 08/07/23 08:00 BP 130/81 08/07/23 08:00 Pulse Ox 96 08/07/23 10:11 O2 Del Method Room Air 08/07/23 10:11 Progress Note: Objective Labs Labs: Short CBC 08/07/23 Range/Units 04:42 WBC 12.0 H (4.0-11.0) 10^3/uL Hgb 9.4 L (14.0-18.0) g/dL Hct 31.5 L (42.0-54.0) % Plt Count 222 (150-450) 10^3/uL BMP 08/07/23 04:42 Sodium 135 L Potassium 4.6 Chloride 102 Carbon Dioxide 24.7 BUN 33.0 H Creatinine 1.70 H Glucose 188 H Calcium 8.1 L Liver Function 08/07/23 Range/Units 04:42 Total Bilirubin 0.4 (0.2-1.0) mg/dL AST 25 (15-37) U/L ALT 21 (16-63) U/L Alkaline Phosphatase 144 H (46-116) U/L Albumin 2.1 L (3.4-5.0) g/dL Progress Note: A&P Assessment and Plan (1) Sepsis: Qualifiers: Sepsis acute organ dysfunction status: with acute organ dysfunction Sepsis type: sepsis due to unspecified organism Severe sepsis acute organ dysfunction type: encephalopathy (2) Diabetic infection of right foot: (3) ROEL (acute kidney injury): (4) COPD (chronic obstructive pulmonary disease): (5) DM2 (diabetes mellitus, type 2): (6) Neuropathy: (7) GERD (gastroesophageal reflux disease): (8) Coronary artery disease: (9) BPH with obstruction/lower urinary tract symptoms: (10) Hyperlipidemia: (11) Tobacco abuse: (12) Migraine headache: (13) Dementia: (14) Hypertension: (15) CHF (congestive heart failure): (16) Acute UTI: (17) Metabolic encephalopathy: (18) Lactic acid acidosis: (19) Suspected cerebrovascular accident (CVA): (20) Left arm pain: (21) Diabetes: Qualifiers: Diabetes mellitus type: type 2 Diabetes mellitus complication status: with kidney complications Diabetes mellitus complication detail: with chronic kidney disease Chronic kidney disease stage: stage 4 (severe) (22) CKD stage 4 due to type 2 diabetes mellitus: Plan Ok with d/c home today on PO tetracycline Packing and dressing changed today f/u in wound center Monday vs Monday WBAT in surgical shoe
[2023-08-07 11:17] LABS: Glucometer 225 mg/dL (74-106)
--- NOTE | 2023-08-07 12:06 | SWNOTE1 ---
SW checked physical therapy note, pt was screened and no needs identified, returning home with family.
--- NOTE | 2023-08-08 16:24 | CM.DCFOLLOWU ---
Person spoke with: Pt's How are you feeling? He is coming back on for a debridement with Dr. Elias How is your pain? Little better Did you understand your discharge instructions? Yes Do you have any questions about your discharge instructions? No Were you given any prescriptions at discharge? Yes Were you able to get your prescriptions filled? Yes Do you understand how to take your medications as ordered? Yes Do you have any questions about your follow up appointment and do you plan to keep your follow up appointment? No questions and will return to hospital on Is there anything else that you would like to discuss? No Questions/Comments/Concerns/Other:
== END 2023-08-07 13:00 | disposition home or self-care (01) | DRG 720 ==
LOC: ER 20:35 → MS 21:22
PROVIDERS: Family Medicine; Nurse Practitioner; Nurse Practitioner Acute Care; Physician Assistant; Admitting Provider Family Medicine; Emergency Provider Emergency Medicine; PCP Family Medicine; Visit Provider Family Medicine
DX: A41.9 Sepsis, unspecified organism (principal); R65.20 Severe sepsis without septic shock; E11.621 Type 2 diabetes mellitus with foot ulcer; L97.429 Non-pressure chronic ulcer of left heel and midfoot with unspecified severity; E11.22 Type 2 diabetes mellitus with diabetic chronic kidney disease; E11.628 Type 2 diabetes mellitus with other skin complications; L02.611 Cutaneous abscess of right foot; L03.115 Cellulitis of right lower limb; E11.42 Type 2 diabetes mellitus with diabetic polyneuropathy; E11.65 Type 2 diabetes mellitus with hyperglycemia; S91.331A Puncture wound without foreign body, right foot, initial encounter; X58.XXXA Exposure to other specified factors, initial encounter; G93.41 Metabolic encephalopathy; N39.0 Urinary tract infection, site not specified; N17.9 Acute kidney failure, unspecified; J44.9 Chronic obstructive pulmonary disease, unspecified; I25.10 Atherosclerotic heart disease of native coronary artery without angina pectoris; N40.1 Benign prostatic hyperplasia with lower urinary tract symptoms; K21.9 Gastro-esophageal reflux disease without esophagitis; F17.210 Nicotine dependence, cigarettes, uncomplicated; G43.909 Migraine, unspecified, not intractable, without status migrainosus; F03.90 Unspecified dementia, unspecified severity, without behavioral disturbance, psychotic disturbance, mood disturbance, and anxiety; I13.0 Hypertensive heart and chronic kidney disease with heart failure and stage 1 through stage 4 chronic kidney disease, or unspecified chronic kidney disease; I50.9 Heart failure, unspecified; N18.4 Chronic kidney disease, stage 4 (severe); E87.1 Hypo-osmolality and hyponatremia; M79.602 Pain in left arm; I25.2 Old myocardial infarction; E78.00 Pure hypercholesterolemia, unspecified; N13.8 Other obstructive and reflux uropathy; Z95.5 Presence of coronary angioplasty implant and graft; Z79.02 Long term (current) use of antithrombotics/antiplatelets; Z79.82 Long term (current) use of aspirin; Z79.84 Long term (current) use of oral hypoglycemic drugs; Z79.899 Other long term (current) drug therapy; Z79.85 Long-term (current) use of injectable non-insulin antidiabetic drugs; Z88.0 Allergy status to penicillin; Z91.030 Bee allergy status; Z91.040 Latex allergy status; Z87.440 Personal history of urinary (tract) infections; Z87.01 Personal history of pneumonia (recurrent); Z82.49 Family history of ischemic heart disease and other diseases of the circulatory system; Z83.3 Family history of diabetes mellitus
CPT/HCPCS: 36415; 71046; 73030; 73630; 73700; 80053; 80202; 81001; 82800; 82948; 83036; 83605; 84145; 85025; 85610; 85652; 86140; 87040; 87070; 87076; 87086; 87150; 87186; 87205; 90471; 90715; 96361; 96365; 96366; 96367; 96375; 99285; G0328; J3370

== ENCOUNTER 2023-08-08 15:37 | Outpatient (OUT) | payer OTHER, SELFPAY | END 2023-08-08 15:38 | disposition home or self-care (01) | LOC: WC 15:37 | PROVIDERS: PCP Family Medicine; Visit Provider Podiatrist Foot & Ankle Surgery | DX: E11.621 Type 2 diabetes mellitus with foot ulcer (principal); L97.415 Non-pressure chronic ulcer of right heel and midfoot with muscle involvement without evidence of necrosis | CPT/HCPCS: 11042; G0463 ==

== ENCOUNTER 2023-08-09 12:50 | Outpatient (OUT) | payer OTHER, SELFPAY | END 2023-08-09 12:51 | disposition home or self-care (01) | LOC: PST 12:50 | PROVIDERS: PCP Family Medicine; Visit Provider Podiatrist Foot & Ankle Surgery | DX: Z01.818 Encounter for other preprocedural examination (principal); L02.611 Cutaneous abscess of right foot; S91.331A Puncture wound without foreign body, right foot, initial encounter ==

== ENCOUNTER 2023-08-10 08:54 | Day surgery (SDC) | payer OTHER, SELFPAY ==
--- OUTSIDE RECORDS SUMMARY | 2023-08-10 09:03 | XMS_ITS | CCD ---
Author Name Unknown Address [address] [place] [address] Organization [facility] Care Team Providers Care Terra Cotta Roofer Helper Name Role Phone Jenaro Lynch Unavailable Unavailable Unavailable Jenaro Lynch Unavailable Amina Fagan Unavailable Verona Whaley Unavailable Doris Barnes Unavailable DO Jenaro Lynch Primary Care Provider JERARDO Mclaughlin Attending Provider [phone] DO Jenaro Lynch Attending Provider [phone] ELAINE .DUARTE Attending Unavailable ELAINE Hernandez DUARTE Admitting Unavailable DR LYSSA PERDOMO Consulting Unavailable DR JENARO LYNCH Primary Care Unavailable DUARTE MÁRQUEZ Consulting Unavailable JENARO LYNCH Primary Care Physician Dr. Jenaro Lynch Primary Care UnavailDolores Vaughn Attending Unavailable Dolores Feldman Attending Unavailable Dolores Feldman Referring Unavailable Dr. Jenaro Lynch Primary Care UnavailDolores Vaughn Attending Unavailable Dolores Feldman Referring Unavailable Dr. Jenaro Lynch Primary Care Unavailkita Kennedy II, Dr. Raulito Orona Referring Unavailable Rory, Dr. Jenaro Orona Primary Care Unavailkita Kennedy II, Dr. Raulito Orona Attending Unavailable DO Jenaro Lynch Primary Care Provider [phone] MD Nancy Chaudhari Emergency Provider SILVESTRE, Yeyo R Attending Unavailable SILVESTRE, Yeyo R Referring Unavailable SILVESTRE, Yeyo R Attending Unavailable SILVESTRE, Yeyo R Attending Unavailable SILVESTRE, Yeyo R Attending Unavailable SILVESTRE, Yeyo R Attending Unavailable SILVESTRE, Yeyo R Attending Unavailable SILVESTRE, Yeyo R Attending Unavailable SILVESTRE, Yeyo R Attending Unavailable SILVESTRE, Yeyo R Attending Unavailable SILVESTRE, Yeyo R Attending Unavailable SILVESTRE, Yeyo R Attending Unavailable SILVESTRE, Yeyo R Attending Unavailable SILVESTRE, Yeyo R Attending Unavailable SILVESTRE, Yeyo R Attending Unavailable SILVESTRE, Yeyo R Attending Unavailable SILVESTRE, Yeyo R Referring Unavailable SILVESTRE, Yeyo R Admitting Unavailable SILVESTRE, Yeyo R Attending Unavailable SILVESTRE, Yeyo R Referring Unavailable SILVESTRE, Yeyo R Admitting Unavailable Kuns - CHC, Jenaro P Admitting Unavailable Kuns - CHC, Jenaro P Attending Unavailable Kuns, Jenaro Primary Care Unavailable Lowe, Shana Admitting Unavailable Lowe, Shana Attending Unavailable Kuns, Jenaro Primary Care Unavailable Lowe, Shana Admitting Unavailable Arnoldo, Shana Attending Unavailable Arnoldo, Shana Referring Unavailable Rory, Jenaro Primary Care Unavailable Rory, Jenaro Primary Care Unavailable Nancy Chaudhari Attending Unavailable Nancy Chaudhari Admitting Unavailable Allergies Allergy Classification Reported Allergen(s) Allergy Type Date of Onset Reaction(s) Facility (15 sources) natural latex rubber; 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: [Latex] Allergy to substance (finding) Itching (finding), Eruption of skin (disorder) [facility] (17 sources) Penicillins; 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: [Penicillins] Allergy to drug (finding) 07-14-19 Anaphylactoid reaction (disorder) [facility] (20 sources) Acetaminophen / oxyCODONE Drug Allergy vomiting [facility] Other (20 sources) tamsulosin Drug Allergy 07-14-19 hives [facility] (20 sources) PENICIILIN Propensity to adverse reactions SWELLING OF AIRWAY [facility] Other (3 sources) Acetaminophen; 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: [acetaminophen] Drug Allergy 07-14-19 Vomiting [facility] (4 sources) oxyCODONE; 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: [Oxycodone] Drug Allergy 02-08-20 Vomiting [facility] (1 source) Penicillins Drug allergy (disorder) 09-23-19 14 [facility] (9 sources) Penicillin G; 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: [penicillin G benzathine] Drug Allergy [facility] (8 sources) Penicillin Drug Allergy [facility] Other (1 source) Penicillins Drug allergy (disorder) 07-31-19 24 [facility] Repository (1 source) tamsulosin Drug Allergy 07-31-19 [facility] Repository Medications Current Medications Medication Drug Class(es) [...] 12:00am July 14, 2020 11:39am Start: 10-10-2014 [place] 325 mg-5 mg oral tablet 1 tab(s), [...] syringe (1 source) Start: 07-12-2023 Fremanezumab-V frm ([employer] Autoinjector) 225 mg/1.5 mL auto-injector Active 225 [...] tablet (10 sources) Nitrate Vasodilator Start: 07-12-19 take 30 mg by mouth once daily Isosorbide Mononitrate Active 30 MG PO Daily July 12, 2023 12:00am Start: 01-11-2023 take 1 tablet by kalie th once daily Isosorbide Mononitrate ER 30 MG Oral Tablet Extended Release 24 Hour TAKE 1 TABLET DAILY DIRECTED. Quantity: 30 Refills: 6 Ordered: 11-Jan-2023 Julius Feldman APRN-Dolores KAUFFMAN Start : 11-Jan-2023 Active new start Start: [...] Status: Ordered take 0.5 tablet by m out twice daily Metoprolol Tartrate 100 MG 1/2 [...] Start: 02-14-2023 take 1 capsule by mo [facility] twice daily tamsulosin 0.4 mg Cap 0.4 mg = 1 cap(s), Oral, BID, # 60 cap(s), Refills(s) 3, Pharmacy: [facility]/pharmacy #[id number], 182, cm, 02/14/23 8:58:00 EDT, Height/Length Dosing, 94, kg, 01/30/23 10:24:00 EDT, Weight Dosing Start Date: 02/14/23 Status: Ordered take 1 capsule by mo [facility] once daily Tamsulosin HCl - 0.4 MG Oral Capsule TAKE 1 CAPSULE Daily Quantity: 0 Refills: 0 Ordered: 15-Feb-2023 DO Active [facility] (20 sources) Start: 01-27-2014 Start: 01-27-2014 T[facility] Unit as d irected Use as directed. Jan, Active Tiotropium [place] (Spiriva With Handihaler) 18 mcg capsule, w/inhalation device (1 source) Start: 07-12-2023 take 1 capsule by inhalation once daily Tiotropium [place] (Spiriva With Handihaler) 18 mcg capsule, w/inhalation [...] Ordered Start: 07-04-2022 take 1 tablet by [facility] every twelve hours tiZANidine HCl 4 MG 1 tablet as needed Orally Twice a day Jun, Active take 2 tablets by [facility] at bedtime tiZANidine HCl - 4 [...] Quantity: 90 Refills: 3 Ordered: 26-Oct-2021 Raulito Kennedy MD Start : 22-Jun-2021 Active fill at [...] procedure, # 2 cap(s), Refills(s) 0, Pharmacy: [facility]/pharmacy #[id number], 182, cm, 01/30/23 10:24:00 EDT, Height/Length [...] take 1 tablet by mouth once daily Olmesartan-[place] chlorothiazide (Benicar Hct) 40-12.5 mg Tablet Discontinued [...] [Coronary atherosclerosis of unspecified type of vessel, resighini or graft] Onset: 2 Resolved: 2 Chronic [...] 2 Resolved: 2 Chronic Headache; including migraine (1 source) Migraine, unspecified, not intractable, without status migrainosus; 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: [Migraine, unspecified, not intractable, without status migrainosus] Onset: 4 Chronic Headache; including migraine (20 sources) Headache; [...] sources) Long-term current use of insulin; 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: [assisted (current) use of insulin] Episodic Other and [...] diabetes mellitus with other circulatory complications] Onset: Urinary tract infections (1 source) Urinary tract [...] duplex LE BIon US venous duplex LE [facility] [place] [address] Ultrasound Report Signed Patient: Solomon Feldman SR MR#: [id number] : 1965 Acct:[id number] Age/Sex: 57 / M ADM Date: 07/12/23 Loc: ER Room: Type: [facility] ER Attending Dr: Ordering Provider: Nancy Chaudhari MD Date of Service: 07/12/23 US/US venous duplex LE BI: Swelling Copies to: Nancy Chaudhari MD BILATERAL LOWER EXTREMITY VENOUS DUPLEX INDICATION: [...] Howard Boss MD07/13/2023 11:56 AM Dictation Location: [place] [address] Tech: Nancy Pantoja Transcribed By: BOB 07/13/23 115 Dictated By: Howard Boss MD 07/13/23 115 Signed By: 07/13/23 115 [facility] US venous duplex UE LTon US venous duplex UE LT [facility] [place] [address] Ultrasound Report Signed Patient: Solomon Feldman SR MR#: [id number] : 1965 Acct:[id number] Age/Sex: 57 / M ADM Date: 07/12/23 Loc: ER Room: Type: [facility] ER Attending Dr: Ordering Provider: Nancy Chaudhari MD Date of Service: 07/12/23 US/US venous duplex UE LT: [id number] Copies to: Nancy Chaudhari MD VENOUS DUPLEX LEFT UPPER EXTREMITY INDICATION: [...] Howard Boss MD07/13/2023 11:56 AM Dictation Location: [place] [address] Tech: Nancy Pantoja Transcribed By: PWS 07/13/23 1156 Dictated By: Howard Boss MD 07/13/23 1155 Signed By: 07/13/23 1156 Normal [facility] Activated partial thrombopla stin time (aPTT) in platelet poor plasma by coagulation aOrdered By: Nancy Chaudhari on 07-12-2023 aPTT Coag (PPP) [Time] 29.4 s 25.1-36.5 [facility] Comment on above: A hematocrit value g reater than 55% may lead to inaccurate results in coagulation testing. Patients having hematocrit values >55% require a special collection tube for coagulation studies. Please contact the laboratory at [phone] for redraw instructions. Alanine aminotransferase [En zymatic activity/volume] in Serum or PlasmaOrdered By: Nancy Chaudhari on 07-12-2023 ALT [Catalytic activity/Vol] 9 U/L 7-52 [facility] Albumin [Mass/volume] in Ser um or Plasma by Bromocresol green (BCG) dye binding methoOrdered By: Nancy Chaudhari on 07-12-2023 Albumin BCG dye [Mass/Vol] 3.9 g/dL 3.5-5.7 [facility] Alkaline phosphatase [Enzyma tic activity/volume] in Serum or PlasmaOrdered By: Nancy Chaudhari on 07-12-2023 ALP [Catalytic activity/Vol] 106 U/L 34-104 [facility] Aspartate aminotransferase [ Enzymatic activity/volume] in Serum or PlasmaOrdered By: Nancy Chaudhari on 07-12-2023 AST [Catalytic activity/Vol] 8 U/L 13-39 [facility] B-Type Natriuretic Peptideon 07-12-2023 Natriuretic peptide B (Bld) [Mass/Vol] 34.0 pg/mL Normal 5-100 [facility] Comment on above: Result Comment: PERF ORMED BY: [facility] [address] [place] [address] PATHOLOGIST ELECTRIC VEHICLE ELECTRICIAN CLIFFORD LOBATO M.D. Performed By: #### B APPLICATION SUPPORT TECHNICIAN, CMP, HS TROP, CK, PTT, CBC, PT ####[facility] [place] [address] [facility] Basophils Auto (Bld) [#/Vol] Ordered By: Nancy Chaudhari on 07-12-2023 Basophils (Bld) [#/Vol] 0.1 10*3/uL 0.0-0.2 [facility] Basophils/100 WBC Auto (Bld) Ordered By: Nancy Chaudhari on 07-12-2023 Basophils/100 WBC (Bld) 1.1 % . [facility] Bilirubin.total [Mass/volume ] in Serum or PlasmaOrdered By: Nancy Chaudhari on 07-12-2023 Bilirubin [Mass/Vol] 0.4 mg/dL 0.3-1.0 [facility] Calcium [Mass/volume] in Ser um or PlasmaOrdered By: Nancy Chaudhari on 07-12-2023 Calcium [Mass/Vol] 8.5 mg/dL 8.6-10.3 [facility] Carbon dioxide, total [Moles /volume] in Serum or PlasmaOrdered By: Nancy Chaudhari on 07-12-2023 CO2 [Moles/Vol] 24.5 mmol/L 21.0-31.0 [facility] Chloride [Moles/volume] in S ilia or PlasmaOrdered By: Nancy Chaudhari on 07-12-2023 Chloride [Moles/Vol] 102 mmol/L 98-107 [facility] Complete Blood Count Auto Di ffon 07-12-2023 Basophils (Bld) [#/Vol] 0.1 10*3/uL Normal 0.0-0.2 [facility] Comment on above: Result Comment: PERF ORMED BY: [facility] [address] [place] [address] PATHOLOGIST ELECTR[employer] VEHICLE ELECTRICIAN CLIFFORD LOBATO M.D. Performed By: #### B APPLICATION SUPPORT TECHNICIAN, CMP, HS TROP, CK, PTT, CBC, PT ####[facility] [id number] Basophils/100 WBC (Bld) 1.1 % Normal . [facility] Comment on above: Performed By: #### B APPLICATION SUPPORT TECHNICIAN, CMP, HS TROP, CK, PTT, CBC, PT ####[facility] [id number] Eosinophils (Bld) [#/Vol] 0.3 10*3/uL Normal 0.0-0.45 [facility] Comment on above: Performed By: #### B APPLICATION SUPPORT TECHNICIAN, CMP, HS TROP, CK, PTT, CBC, PT ####[address] Eosinophils/100 WBC (Bld) 3.3 % Normal . [facility] Comment on above: Performed By: #### B APPLICATION SUPPORT TECHNICIAN, CMP, HS TROP, CK, PTT, CBC, PT ####[address] Erythrocyte distribution width (RBC) [Ratio] 17.1 % High 12.0-14.8 [facility] Comment on above: Performed By: #### B APPLICATION SUPPORT TECHNICIAN, CMP, HS TROP, CK, PTT, CBC, PT ####[address] Hematocrit (Bld) [Volume fraction] 32.7 % Low 38.8-50.0 [facility] Comment on above: Performed By: #### B APPLICATION SUPPORT TECHNICIAN, CMP, HS TROP, CK, PTT, CBC, PT ####[address] Hemoglobin (Bld) [Mass/Vol] 10.6 g/dL Low 13.0-17.0 [facility] Comment on above: Performed By: #### B APPLICATION SUPPORT TECHNICIAN, CMP, HS TROP, CK, PTT, CBC, PT ####[address] Lymphocytes (Bld) [#/Vol] 1.9 10*3/uL Normal 1.00-4.8 [facility] Comment on above: Performed By: #### B APPLICATION SUPPORT TECHNICIAN, CMP, HS TROP, CK, PTT, CBC, PT ####[address] Lymphocytes/100 WBC (Bld) 20.0 % Normal . [facility] Comment on above: Performed By: #### B APPLICATION SUPPORT TECHNICIAN, CMP, HS TROP, CK, PTT, CBC, PT ####[address] MCH (RBC) [Entitic mass] 22.8 pg Low 27.5-35.2 [facility] Comment on above: Performed By: #### B APPLICATION SUPPORT TECHNICIAN, CMP, HS TROP, CK, PTT, CBC, PT ####[address] MCV (RBC) [Entitic vol] 70.6 fL Low 83.5-101 [facility] Comment on above: Performed By: #### B APPLICATION SUPPORT TECHNICIAN, CMP, HS TROP, CK, PTT, CBC, PT ####[address] Mean Corpuscular HGB Conc 32.4 g/dL Low 32.5-35.6 [facility] Comment on above: Performed By: #### B APPLICATION SUPPORT TECHNICIAN, CMP, HS TROP, CK, PTT, CBC, PT ####[address] Monocytes (Bld) [#/Vol] 1.0 10*3/uL High 0.0-0.8 [facility] Comment on above: Performed By: #### B APPLICATION SUPPORT TECHNICIAN, CMP, HS TROP, CK, PTT, CBC, PT ####[address] Monocytes/100 WBC (Bld) 18.12 % Normal 0.00-20.00 [facility] Comment on above: Performed By: #### B APPLICATION SUPPORT TECHNICIAN, CMP, HS TROP, CK, PTT, CBC, PT ####[address] Monocytes/100 WBC (Bld) 10.2 % Normal . [facility] Comment on above: Performed By: #### B APPLICATION SUPPORT TECHNICIAN, CMP, HS TROP, CK, PTT, CBC, PT ####[address] Neutrophils (Bld) [#/Vol] 6.2 10*3/uL Normal 1.8-7.7 [facility] Comment on above: Performed By: #### B APPLICATION SUPPORT TECHNICIAN, CMP, HS TROP, CK, PTT, CBC, PT ####[address] Neutrophils/100 WBC (Bld) 65.4 % Normal . [facility] Comment on above: Performed By: #### B APPLICATION SUPPORT TECHNICIAN, CMP, HS TROP, CK, PTT, CBC, PT ####[address] NRBC% 0.1 /100{WBC} Normal 0-0.5 [facility] Comment on above: Performed By: #### B APPLICATION SUPPORT TECHNICIAN, CMP, HS TROP, CK, PTT, CBC, PT ####[address] Platelet mean volume (Bld) [Entitic vol] 9.1 fL Normal 6.6-10.1 [facility] Comment on above: Performed By: #### B APPLICATION SUPPORT TECHNICIAN, CMP, HS TROP, CK, PTT, CBC, PT ####[address] Platelets (Bld) [#/Vol] 233 10*3/uL Normal 150-450 [facility] Comment on above: Performed By: #### B APPLICATION SUPPORT TECHNICIAN, CMP, HS TROP, CK, PTT, CBC, PT ####[address] RBC (Bld) [#/Vol] 4.63 10*6/uL Normal 3.90-5.60 [facility] Comment on above: Performed By: #### B APPLICATION SUPPORT TECHNICIAN, CMP, HS TROP, CK, PTT, CBC, PT ####[address] WBC (Bld) [#/Vol] 9.5 10*3/uL Normal 4.1-10.5 [facility] Comment on above: Performed By: #### B APPLICATION SUPPORT TECHNICIAN, CMP, HS TROP, CK, PTT, CBC, PT ####[address] Comprehensive Metabolic Pane bárbara 07-12-2023 Albumin [Mass/Vol] 3.9 g/dL Normal 3.5-5.7 [facility] Comment on above: Performed By: #### B APPLICATION SUPPORT TECHNICIAN, CMP, HS TROP, CK, PTT, CBC, PT ####[address] Albumin/Globulin [Mass ratio] 1.3 {ratio} Normal [facility] Comment on above: Performed By: #### B APPLICATION SUPPORT TECHNICIAN, CMP, HS TROP, CK, PTT, CBC, PT ####[address] ALP [Catalytic activity/Vol] 106 U/L High 34-104 [facility] Comment on above: Performed By: #### B APPLICATION SUPPORT TECHNICIAN, CMP, HS TROP, CK, PTT, CBC, PT ####[address] ALT [Catalytic activity/Vol] 9 U/L Normal 7-52 [facility] Comment on above: Performed By: #### B APPLICATION SUPPORT TECHNICIAN, CMP, HS TROP, CK, PTT, CBC, PT ####[address] Anion gap [Moles/Vol] 13.4 mmol/L Normal 6.0-15.0 [facility] Comment on above: Performed By: #### B APPLICATION SUPPORT TECHNICIAN, CMP, HS TROP, CK, PTT, CBC, PT ####[address] AST [Catalytic activity/Vol] 8 U/L Low 13-39 [facility] Comment on above: Performed By: #### B APPLICATION SUPPORT TECHNICIAN, CMP, HS TROP, CK, PTT, CBC, PT ####[address] Bilirubin [Mass/Vol] 0.4 mg/dL Normal 0.3-1.0 [facility] Comment on above: Performed By: #### B APPLICATION SUPPORT TECHNICIAN, CMP, HS TROP, CK, PTT, CBC, PT ####[address] Calcium [Mass/Vol] 8.5 mg/dL Low 8.6-10.3 [facility] Comment on above: Performed By: #### B APPLICATION SUPPORT TECHNICIAN, CMP, HS TROP, CK, PTT, CBC, PT ####[place] [id number] [facility] Chloride [Moles/Vol] 102 mmol/L Normal 98-107 [facility] Comment on above: Performed By: #### B APPLICATION SUPPORT TECHNICIAN, CMP, HS TROP, CK, PTT, CBC, PT ####[place] [id number] [facility] CO2 [Moles/Vol] 24.5 mmol/L Normal 21.0-31.0 [facility] Comment on above: Performed By: #### B APPLICATION SUPPORT TECHNICIAN, CMP, HS TROP, CK, PTT, CBC, PT ####[place] [id number] [facility] Creatinine [Mass/Vol] 1.82 mg/dL High 0.70-1.30 [facility] Comment on above: Performed By: #### B APPLICATION SUPPORT TECHNICIAN, CMP, HS TROP, CK, PTT, CBC, PT ####[address] Creatinine Clr Calc Pharmacy 54.64 [facility] Comment on above: Result Comment: PERF ORMED BY: [facility] [address] [place] [address] PATHOLOGIST ELECTRIC VEHICLE ELECTRICIAN CLIFFORD LOBATO M.D. Performed By: #### B APPLICATION SUPPORT TECHNICIAN, CMP, HS TROP, CK, PTT, CBC, PT ####[place] [id number] [facility] GFR/1.73 sq M.predicted MDRD (S/P/Bld) [Vol rate/Area] 42.789 mL/min/{1.73_m2} [facility] Comment on above: Performed By: #### B APPLICATION SUPPORT TECHNICIAN, CMP, HS TROP, CK, PTT, CBC, PT ####[place] [id number] [facility] Globulin (S) [Mass/Vol] 3.1 g/dL [facility] Comment on above: Performed By: #### B APPLICATION SUPPORT TECHNICIAN, CMP, HS TROP, CK, PTT, CBC, PT ####[place] [id number] [facility] Glucose [Mass/Vol] 302 mg/dL High 70-100 [facility] Comment on above: Result Comment: [facility] Glucose Reference Range is dependent on time and content of last meal. Glucose of more than 200 mg/dL in a nonstressed, ambulatory subject supports the diagnosis of Diabetes Mellitus. ADA recommended reference range Performed By: #### B APPLICATION SUPPORT TECHNICIAN, CMP, HS TROP, CK, PTT, CBC, PT ####[place] [id number] [place] [id number] [facility] Potassium [Moles/Vol] 3.9 mmol/L Normal 3.5-5.1 [facility] Comment on above: Performed By: #### B APPLICATION SUPPORT TECHNICIAN, CMP, HS TROP, CK, PTT, CBC, PT ####[place] [address] [place] [address] [facility] Protein [Mass/Vol] 7.0 g/dL Normal 6.4-8.9 [facility] Comment on above: Performed By: #### B APPLICATION SUPPORT TECHNICIAN, CMP, HS TROP, CK, PTT, CBC, PT ####[address] [address] [facility] Sodium [Moles/Vol] 136 mmol/L Normal 136-145 [facility] Comment on above: Performed By: #### B APPLICATION SUPPORT TECHNICIAN, CMP, HS TROP, CK, PTT, CBC, PT ####[address] [address] [facility] Urea nitrogen [Mass/Vol] 16 mg/dL Normal 7-25 [facility] Comment on above: Performed By: #### B APPLICATION SUPPORT TECHNICIAN, CMP, HS TROP, CK, PTT, CBC, PT ####[address] [address] [facility] Creatine Kinaseon 07-12-2023 CK [Catalytic activity/Vol] 55 U/L Normal 30-223 [facility] Comment on above: Performed By: #### B APPLICATION SUPPORT TECHNICIAN, CMP, HS TROP, CK, PTT, CBC, PT ####[address] [address] [place] Creatine kinase [Enzymatic a ctivity/volume] in Serum or PlasmaOrdered By: Nancy Chaudhari on 07-12-2023 CK [Catalytic activity/Vol] 55 U/L 30-223 [facility] Creatinine [Mass/volume] in Serum or PlasmaOrdered By: Nancy Chaudhari on 07-12-2023 Creatinine [Mass/Vol] 1.82 mg/dL 0.70-1.30 [facility] ECG 12 lead ECGon 07-12-2023 ECG 12 lead ECG [facility] [place] [address] Electrocardiograph Report Signed Patient: Solomon Feldman SR MR#: [id number] : 1965 Acct:[id number] Age/Sex: 57 / M ADM Date: 07/12/23 Loc: ER Room: Type: [facility] ER Attending Dr: Ordering Provider: Nancy Chaudhari MD Date of Service: 07/12/2312/26/1608 ECG/ECG 12 [...] has replaced Sinus rhythm Confirmed by NANCY CHAUDHARI MD ([id number]) on 07/13/2023 1:35:01 AM Referred By: Electronically Signed By:NANCY CHAUDHARI MD Transcribed By: MUS Signed By Nancy Chaudhari MD 01/26 0135 Normal [facility] Eosinophils Auto (Bld) [#/Vo l]Ordered By: Nancy Chaudhari on 07-12-2023 Eosinophils (Bld) [#/Vol] 0.3 10*3/uL 0.0-0.45 [facility] Eosinophils/100 WBC Auto (Bl d)Ordered By: Nancy Chaudhari on 07-12-2023 Eosinophils/100 WBC (Bld) 3.3 % . [facility] Erythrocyte distribution wid th Auto (RBC) [Ratio]Ordered By: Nancy Chaudhari on 07-12-2023 Erythrocyte distribution width (RBC) [Ratio] 17.1 % 12.0-14.8 [facility] Globulin Calc (S) [Mass/Vol] Ordered By: Nancy Chaudhari on 07-12-2023 Globulin (S) [Mass/Vol] 3.1 g/dL [facility] Glucose [Mass/volume] in Ser um or PlasmaOrdered By: Nancy Chaudhari on 07-12-2023 Glucose [Mass/Vol] 302 mg/dL 70-100 [facility] Comment on above: ADA recommended refe rence rangeRandom Glucose Reference Range is dependent on time and content of last meal. Glucose of more than 200 mg/dL in a nonstressed, ambulatory subject supports the diagnosis of Diabetes Mellitus. Hematocrit Auto (Bld) [Volum e fraction]Ordered By: Nancy Chaudhari on 07-12-2023 Hematocrit (Bld) [Volume fraction] 32.7 % 38.8-50.0 [facility] Hemoglobin [Mass/volume] in BloodOrdered By: Nancy Chaudhari on 07-12-2023 Hemoglobin (Bld) [Mass/Vol] 10.6 g/dL 13.0-17.0 [facility] INR in Platelet poor plasma by Coagulation assayOrdered By: Nancy Chaudhari on 07-12-2023 INR Coag (PPP) [Relative time] 1.1 {INR} [facility] Comment on above: INR Therapeutic Rang e [...] in Blood by Automated counOrdered By: Nancy Chaudhari on 07-12-2023 WBC corrected for nucl RBC Auto (Bld) [#/Vol] 9.5 10*3/uL 4.1-10.5 [facility] Lymphocytes Auto (Bld) [#/Vo l]Ordered By: Nancy Chaudhari on 07-12-2023 Lymphocytes (Bld) [#/Vol] 1.9 10*3/uL 1.00-4.8 [facility] Lymphocytes/100 WBC Auto (Bl d)Ordered By: Nancy Chaudhari on 07-12-2023 Lymphocytes/100 WBC (Bld) 20.0 % . [facility] MCH Auto (RBC) [Entitic mass ]Ordered By: Nancy Chaudhari on 07-12-2023 MCH (RBC) [Entitic mass] 22.8 pg 27.5-35.2 [facility] MCHC Auto (RBC) [Mass/Vol]Or dered By: Nancy Chaudhari on 07-12-2023 MCHC (RBC) [Mass/Vol] 32.4 g/dL 32.5-35.6 [facility] MCV Auto (RBC) [Entitic vol] Ordered By: Nancy Chaudhari on 07-12-2023 MCV (RBC) [Entitic vol] 70.6 fL 83.5-101 [facility] Monocyte distribution width [Entitic volume] in Blood by AutomatedOrdered By: Nancy Chaudhari on 07-12-2023 Monocyte distribution width Auto (Bld) [Entitic vol] 18.12 % 0.00-20.00 [facility] Monocytes Auto (Bld) [#/Vol] Ordered By: Nancy Chaudhari on 07-12-2023 Monocytes (Bld) [#/Vol] 1.0 10*3/uL 0.0-0.8 [facility] Monocytes/100 WBC Auto (Bld) Ordered By: Nancy Chaudhari on 07-12-2023 Monocytes/100 WBC (Bld) 10.2 % . [facility] Natriuretic peptide B [Mass/ Vol]Ordered By: Nancy Chaudhari on 07-12-2023 Natriuretic peptide B (Bld) [Mass/Vol] 34.0 pg/mL 5-100 [facility] Neutrophils Auto (Bld) [#/Vo l]Ordered By: Nancy Chaudhari on 07-12-2023 Neutrophils (Bld) [#/Vol] 6.2 10*3/uL 1.8-7.7 [facility] Neutrophils/100 WBC Auto (Bl d)Ordered By: Nancy Chaudhari on 07-12-2023 Neutrophils/100 WBC (Bld) 65.4 % . [facility] No Panel InformationOrdered By: Nancy Chaudhari on 07-12-2023 Estimated GFR (CKD-EPI) 42.789 mL/Min [facility] Creatinine Clearance (Chem 54.64 [facility] Nucleated erythrocytes [Pres ence] in Blood by Automated countOrdered By: Nancy Chaudhari on 07-12-2023 Nucleated RBC Auto Ql (Bld) 0.1 /100{WBC} 0-0.5 [facility] Partial Thromboplastin Timeo n 07-12-2023 aPTT Coag (Bld) [Time] 29.4 s Normal 25.1-36.5 [facility] Comment on above: Result Comment: A he matocrit value greater than 55% may lead to inaccurate results in coagulation testing. Patients having hematocrit values >55% require a special collection tube for coagulation studies. Please contact the laboratory at [phone] for redraw instructions. PERFORMED BY: [facility] [address] [place] [id number] PATHOLOGIST ELECTRIC VEHICLE ELECTRICIAN CLIFFORD LOBATO M.D. Performed By: #### B APPLICATION SUPPORT TECHNICIAN, CMP, HS TROP, CK, PTT, CBC, PT ####[facility] [id number] [place] [id number] [facility] Platelet mean volume Auto (B ld) [Entitic vol]Ordered By: Nancy Chaudhari on 07-12-2023 Platelet mean volume (Bld) [Entitic vol] 9.1 fL 6.6-10.1 [facility] Platelets Auto (Bld) [#/Vol] Ordered By: Nancy Chaudhari on 07-12-2023 Platelets (Bld) [#/Vol] 233 10*3/uL 150-450 [facility] Potassium [Moles/volume] in Serum or PlasmaOrdered By: Nancy Chaudhari on 07-12-2023 Potassium [Moles/Vol] 3.9 mmol/L 3.5-5.1 [facility] Protein [Mass/volume] in Ser um or PlasmaOrdered By: Nancy Chaudhari on 07-12-2023 Protein [Mass/Vol] 7.0 g/dL 6.4-8.9 [facility] Prothrombin Time INRon 07-12 INR Coag (PPP) [Relative time] 1.1 {INR} Normal [facility] Comment on above: Result Comment: INR Therapeutic [...] 3 - 4.5 Performed By: #### B APPLICATION SUPPORT TECHNICIAN, CMP, HS TROP, CK, PTT, CBC, PT ####[facility] [id number] [place] [id number] [facility] PT Coag (PPP) [Time] 12.1 s Normal 9.0-12.9 [facility] Comment on above: Result Comment: A he matocrit value greater than 55% may lead to inaccurate results in coagulation testing. Patients having hematocrit values >55% require a special collection tube for coagulation studies. Please contact the laboratory at [phone] for redraw instructions. Performed By: #### B APPLICATION SUPPORT TECHNICIAN, CMP, HS TROP, CK, PTT, CBC, PT ####[facility] [place] [id number] [facility] Prothrombin time (PT)Ordered By: Nancy Chaudhari on 07-12-2023 PT Coag (PPP) [Time] 12.1 s 9.0-12.9 [facility] Comment on above: A hematocrit value g reater than 55% may lead to inaccurate results in coagulation testing. Patients having hematocrit values >55% require a special collection tube for coagulation studies. Please contact the laboratory at [phone] for redraw instructions. RBC Auto (Bld) [#/Vol]Ordere d By: Nancy Chaudhari on 07-12-2023 RBC (Bld) [#/Vol] 4.63 10*6/uL 3.90-5.60 [facility] Serum or plasma albumin/glob ulin mass ratioOrdered By: Nancy Chaudhari on 07-12-2023 Albumin/Globulin [Mass ratio] 1.3 {ratio} [facility] Serum or plasma anion gap de terminationOrdered By: Nancy Chaudhari on 07-12-2023 Anion gap [Moles/Vol] 13.4 mmol/L 6.0-15.0 [facility] Sodium [Moles/volume] in Ser um or PlasmaOrdered By: Nancy Chaudhari on 07-12-2023 Sodium [Moles/Vol] 136 mmol/L 136-145 [facility] Troponin I High Sensitivityo n 07-12-2023 Troponin I High Sensitivity 4.6 pg/mL Normal 0.0-20.0 [facility] Comment on above: Result Comment: PERF ORMED BY: [place] [address] PATHOLOGIST ELECTRIC VEHICLE ELECTRICIAN CLIFFORD LOBATO M.D. Performed By: #### B APPLICATION SUPPORT TECHNICIAN, CMP, HS TROP, CK, PTT, CBC, PT ####[facility] Troponin I.cardiac [Mass/vol ume] in Serum or Plasma by Detection limit <= 0.01 ng/Ordered By: Nancy Chaudhari on 07-12-2023 Troponin I.cardiac DL <= 0.01 ng/mL [Mass/Vol] 4.6 pg/mL 0.0-20.0 [facility] Urea nitrogen [Mass/volume] in Serum or PlasmaOrdered By: Nancy Chaudhari on 07-12-2023 Urea nitrogen [Mass/Vol] 16 mg/dL 7-25 [facility] WBC Auto (Bld) [#/Vol]Ordere d By: Nancy Chaudhari on 07-12-2023 WBC (Bld) [#/Vol] 9.5 10*3/uL 4.1-10.5 [facility] XR chest 1V portableon 07-12 XR chest 1V portable [facility] Main [address] [address] XRay Report Signed Patient: Solomon Feldman SR MR#: [id number] : 1965 Acct:[id number] Age/Sex: 57 / M ADM Date: 07/12/23 Loc: ER Room: Type: PRE ER Attending Dr: Copies to: Nancy Chaudhari MD Ordering Provider: Nancy Chaudhari MD Date of Service: 07/12/23 XR/XR chest [...] Sudeep Lind M.D.07/12/2023 5:08 PM Dictation Location: [place] [address] Transcribed By: [facility] 07/12/231707 Dictated By: Sudeep Lind DO 07/12/231706 Signed By: 07/12/231707 [facility] Patient Educationon 06-02-20 23 Patient Education [...] Follow these instructions at home: ? Take kfzi-pyl-tropdnp and prescription medicines only as told by [...] the medicine (more content not included)... Normal [facility] Retail - Clinical Noteon Retail - Clinical Note [id number]#1.00TIFF [facility] Urology Office/Clinic Noteon 06-02-2023 Urology Office/Clinic Note Chief Complaint S/p to Cysto HPI Staff Sp to Cysto done @ [facility] on 02/14/23- Has not noticed any difference- [...] and history for this patient from Dr. Silvestre. I have reviewed and verified the staff [...] 12/20/22 due to seeing blood in pt's Burt bag, only lasted 24hrs. Has had recurrence of blood since December episode. Neg cysto 02/14/23. 4. Orchitis (N45.2: Orchitis) Pt started on Doxycycline 100 mg bid x 3 weeks per prior OV 11/23/22. No current issues. Follow-up With When Contact Information SOLEDAD HERRERA, Yeyo Blum, URL [address] [place] [id number]- Additional Instructions: 1 month w/ cath volumes Patient Education Benign Prostatic Hyperplasia IMattie, personally scribed for Dr. Silvestre on 06/02/2023 12:02:46. . Documentation recorded by the scribe, Mattie Foster, accurately reflects the services(s) I performed and decisions made by me. Authenticated by Dr. Silvestre on 06/02/2023 12:16:01. Problem List/Past Medical History Ongoing Arthritis Asthma BPH with obstruction/lower urinary tract symptoms COPD type A Fibromyalgia Gross hematuria Head ache Heart attack Heart disease Heart murmur Hyperlipidemia Orchitis Restless leg Smoker Urinary retention Historical CHF (congestive heart failure) (more content not included)... Normal [facility] Comment on above: Result Comment: Elec tronically Signed By: Yeyo SILVESTRE MD\.br\Date and Time Signed: 06/02/23 12:16 EST\.br\Electronically Co-Signed By: Mattie Foster.br\Date and Time Co-Signed: 06/02/23 12:04 EST Patient Educationon 05-03-20 Patient Education Normal [facility] Pathology Noteon 05-02-2023 Pathology Note [id number]#1.00TIFF Normal [facility] Lab Reportson 04-14-2023 Lab Reports [id number]#1.00TIFF Normal [facility] Operative Reporton Operative Report [id number]#1.00TIFF Normal [facility] Patient Correspondenceon Patient Correspondence [id number]#1.00TIFF Normal [facility] Lab Reportson 03-31-2023 Lab Reports [id number]#1.00TIFF Normal [facility] RAD - MISCon 03-31-2023 RAD - MISC [id number]#1.00TIFF Normal [facility] Patient Correspondenceon Patient Correspondence [id number]#1.00TIFF Normal [facility] Formson 03-23-2023 Forms [id number]#1.00TIFF Normal [facility] A1C HEMOGLOBINon 03-15-2023 HbA1c (Bld) [Mass fraction] 7.5 % Network18 Other HbA1c (Bld) [Mass fraction]o n 03-15-2023 A1C HEMOGLOBIN [facility] Other Lab Reportson 03-09-2023 Lab Reports [id number]#1.00TIFF Normal [facility] Consultation Noteon 02-28-20 Consultation Note [id number]#1.00CD:12 7 Normal [facility] Consent for Procedure/Surger yon 02-15-2023 Consent for Procedure/Surgery [id number]#1.00CD:12 7 Normal [facility] Office Visit (Cardiology)on 02-15-2023 Follow-up visit [...] in adult Healthy Weight Tips; Status:Complete; Done: [id number] Patient Instructions Please bring all medicines, vitamins, [...] the office if new symptoms arise. Dr. Kennedy in 9 months Chief Complaint Testing f/u: [...] Sia HERRERA, (more content not included)... Normal [facility] Tobacco Screening.on 023 Fall risk assessment c) Not medically indicated -Located Within [facility] [address] 250 DO Work Phone: Tobacco use status CP b) No [facility] [address] 250 DO Work Phone: Tobacco Screening. Yes [facility] [address] 250 DO Work Phone: Consent for Procedure/Surger yon 02-14-2023 Consent for Procedure/Surgery [id number]#1.00CD:1 27 [facility] Consent for Procedure/Surgery [id number]#1.00CD:1 27 [facility] Consent for Treatmenton 02-03 Consent for Treatment [id number]#1.00CD:12 7 [facility] IntraOperative Documentson 0 02-14-2023 IntraOperative Documents [id number]#1.00CD:1 27 [facility] IntraOperative Documents [id number]#1.00CD:1 27 [facility] Main OR Intraoperative Recor don 02-14-2023 Main OR Intraoperative Record IntraOp Document Type FTURO Summary Primary Physician: Yeyo SILVESTRE MD Finalized Date/Time: 02/14/23 10:18:58 Pt. Name: MATTEO CHRISTIAN, SOLOMON Navarro./Sex: 1965 Male Med Rec #: [id number] Physician: Yeyo SILVESTRE MD Financial #: [id number] Pt. Type: O Room/Bed: / Admit/Disch: 02/14/23 [...] Sheri Daniel Role Performed Surgeon - Primary Hourly Caregiver - Primary Scrub - Primary Time In [...] CYSTOSCOPY Primary Procedure Yes Primary Surgeon Yeyo SILVESTRE MD Start 02/14/23 09:42:00 Stop 02/14/23 09:45:00 Anesthesia Type [...] Position Verified Availability Equipment, Medication Time Out SOLEDAD HERRERA, Yeyo Blum, Verified (If Participants Chandrika Martínez RN, Applicable) [...] 09:45 Chandrika Martínez RN 02/14/23 10:18 Normal [facility] Main OR Preoperative Recordo n 02-14-2023 Main OR Preoperative Record Holding Area Document Type FTURO Summary Primary Physician: Yeyo SILVESTRE MD Finalized Date/Time: 02/14/23 09:01:37 Pt. Name: MATTEO SOLOMON CHRISTIAN/Sex: 1965 Male Med Rec #: [id number] Physician: Yeyo SILVESTRE MD Financial #: [id number] Pt. Type: O Room/Bed: / Admit/Disch: 02/14/23 [...] By: Sheri Bolivar RN 02/14/23 09:01 Normal [facility] Operative Reporton Operative Report Patient: AMTTEO , Joe Daniel Age: 57 years Sex: Male : 1965 Associated Diagnoses: None Author: Yeyo SILVESTRE MD Procedure Operative Information Details: Date/ Time: [...] with antibiotic coverage, Follow up arranged. Normal [facility] Comment on above: Result Comment: Elec tronically Signed By: Yeyo SILVESTRE MD\.br\Date and Time Signed: 02/14/23 09:52 EDT Patient [...] including vitamins, herbs, eye drops, creams, and fyxe-cmr-xoxaatj medicines. ? Any problems you or family [...] tells you to take them. ? Taking fsft-eqm-irnhygf medicines, vitamins, herbs, and supplements. Surgery safety [...] health care (more content not included)... Normal [facility] Progress Note-Physicianon Progress Note-Physician Patient: SOLOMON FELDMAN [...] mg = 1 tab(s), PRN, SubLingual, q5min [place] 325 mg-5 mg oral tablet 1 tab(s), [...] 278.00 / Possible Fibromyalgia / SNOMED CT [id number]-7046-28J6-5 979325G81Q6 / Confirmed Restless leg / ICD-9-CM 333.94 / Confirmed Arthritis / SNOMED CT 04GT5936-3N1J-31M0-3N3F-D OG3W785H551 / Confirmed Hyperlipidemia / SNOMED CT 24589969 / Confirmed Smoker / SNOMED CT P545LX6Y-9399-82C4-7269-L LO1V3678WW4 / Confirmed Added secondary to documentation in Social History. Asthma / SNOMED CT 230469978 / Confirmed COPD type A / SNOMED CT 110874385 / Confirmed Head ache / SNOMED CT 13277116 / Confirmed Heart attack / SNOMED CT 09053442 / Confirmed Heart disease / SNOMED CT 37865306 / Confirmed Heart murmur / SNOMED CT 197743829 / Confirmed Urinary retention / SNOMED CT 418358653 / Confirmed BPH with obstruction/lower urinary tract symptoms / SNOMED CT 2665505790 / Confirmed Orchitis / SNOMED CT 631585005 / Confirmed Gross hematuria / SNOMED CT 621852908 / Confirmed Tobacco use / SNOMED CT DACI0449-9514-6X56-Z2M4-1 21877UI2PN3 / Confirmed Added secondary to social history documentation. Histories Past Medical History: Active Fibromyalgia (F3F462B6-U81B-9434-10H4- 8932241V37Z1) Restless leg (333.94) Arthritis (76IU7382-5Q8D-21U2-8J0B- IZB2T556O468) Hyperlipidemia (82292725) Resolved HTN [Hypertension] (401.9): Resolved. NIDDM (250.00): Resolved. GERD [Gastroesophageal reflux disease] (530.81): Resolved. CHF (congestive heart failure) (D5643824-5O5G-8M1T-8K37- C575031Q6K31): Resolved. [place] (myocardial infarction) (868C9ESM-00Q1-6C4F-2M62- 32358H96S5YV): Resolved. Family History: Diabetes mellitus Mother Heart disease Mother Alcoholism Brother Drug addiction Brother Acute myocardial infarction Mother Grandparent Procedure history: Bilateral Eye Surgery. Comments: 07/10/2014 17:25 ALESHA - [facility], Kati bilateral cataracts with iol implants Bilateral Carpal Tunnel Surgery. cardiac stents. Appendectomy (090464438). Colonoscopy (181349217). Cataract extraction and insertion of intraocular lens (8163330775). Procedure on back (913968822). Social History Social & Psychosocial Habits Alcohol [...] procedure such (more content not included)... Normal [facility] Comment on above: Result Comment: Elec tronically Signed By: SOLEDAD HERRERA, Yeyo Blum\.br\Date and Time Signed: 02/14/23 09:58 EDT Consent for Treatmenton 09-0 Consent for Treatment [id number]#1.00CD:12 7 Normal [facility] Ambulatory Visit Summaryon 0 01-30-2023 Ambulatory Visit Summary SOLOMON FELDMAN SR :1965 Visit Date:01/30/2023 Ambulatory Visit Instructions Your Diagnosis Urinary retention Gross hematuria BPH with obstruction/lower urinary tract symptoms Orchitis Your Care Team Attending Physician - Yeyo SILVESTRE MD Primary Care Physician - JENARO LYNCH DO This Is Your Medications List Contact prescribing physician if questions or concerns acetaminophen-hydrocodone ([place] 325 mg-5 mg oral tablet) albuterol (ProAir [...] Where: [facility] [address] , [place] [id number] Medications What How Much When Instructions Unchanged acetaminophen-hydrocodone ([place] 325 mg-5 mg oral tablet) 1 Tablets [...] or vivian (more content not included)... Normal [facility] Patient Educationon 01-31-20 23 Patient Education Urology [...] including vitamins, herbs, eye drops, creams, and kgae-uww-rzwxwtr medicines. ? Whether you are or may [...] be (more content not included)... Normal [facility] Urology Office/Clinic Noteon 01-30-2023 Urology Office/Clinic Note Chief Complaint 2m HPI Staff 2m follow up to catheter insertion in office. DX: Urinary Retention, BPH, Orchitis *Doxycycline 100mg BID x3wks given at time of last encounter w/PRW. *pt finished script entirely. Pt's called our office 12/20/22 c/o red blood in burt bag. Pt advised to increase water intake [...] and history for this patient from Dr. Silvestre. I have reviewed and verified the staff [...] 12/20/22 due to seeing blood in pt's Burt bag, only lasted 24hrs. Pt had a recurrence of hematuria yesterday which has cleared this morning. 3. BPH with obstruction/lower urinary tract symptoms (N40.1: Benign prostatic hyperplasia with lower urinary tract symptoms) No UA given today due to Burt bag in place. Educated pt that an enlarged prostate can contribute to urination difficulties. 4. Orchitis (N45.2: Orchitis) Pt took Doxycycline 100 mg bid x 3 weeks per prior OV 11/23/22. Pt denies any pain at this time. Follow-up With When Contact Information SOLEDAD HERRERA, Yeyo Blum, URL [facility] [address] [place] [address] [phone] Additional Instructions: sched cysto/uros Patient Education Urodynamic Testing Cystoscopy ISharri, personally scribed for Dr. Silvestre on 01/30/2023 11:24:26. . Documentation recorded by the scribeSharri, accurately reflects the services(s) I performed and decisions made by me. Authenticated by Dr. Silvestre on 01/30/2023 11:25:58. Problem List/Past Medical History Ongoing Arthritis Asthma BPH with obstruction/lower urinary tract symptoms COPD type A Fibromyalgia Gross hematuria Head ache Heart attack Heart disease Heart murmur Hyperlipidemia Orchitis Restless leg Smoker Urinary retention Historical CHF (congestive heart failure) GERD [Gastroesophageal reflux disease] HTN [Hypertension] [place] (myocardial infarction) NIDDM Procedure/Surgical History Appendectomy, Bilateral [...] mg, BID (more content not included)... Normal [facility] Comment on above: Result Comment: Elec tronically Signed By: Saima Sutton\.br\Date and Time Signed: 01/30/23 11:38 EDT [facility] CARDIAC STRESS/REST INJE CTIONon 01-25-2023 [facility] CARDIAC STRESS/REST INJECTION Patient Name: SOLOMON FELDMAN STUDY: MYOCARDIAL PERFUSION STRESS TEST WITH EXERCISE CONVERTED TO LEXISCAN Performing facility: [facility], [address] [place] [address], [address], [place] [id number] [facility] Provider: Dolores Feldman RN, FIRE SUPPRESSION CAPTAIN PCP: Dr. Jenaro Lynch Supervising provider: Pascale Purvis MD, [facility] INDICATION: Anginal equivalent CAD; HISTORY: Gender: M; Age: 57 y/o ; Height: 182.88 cm; Weight: 97.0898116 kg. High Cholesterol; CAD; Diabetes; HTN; Palpitations; Chest Pain; Quit smoking unknown years ago. COMPARISON: Previous nuclear testing completed at [facility]. ACCESSION NUMBER(S): [id number]; [id number]; [id number] ORDERING CLINICIAN: DOLORES FELDMAN TECHNIQUE: ONE DAY [...] the perfusion study. Electronically signed by: PASCALE PURVIS MD Normal [facility] No Panel Informationon 01-25 Normal MP-Located Within [facility] [address] 250 DO Work Phone: Office [...] contact the office if new symptoms arise. APPLICATION SUPPORT TECHNICIAN after procedure Chief Complaint Routine f/u: 'I [...] creatinine of 1.8. He currently has a Burt catheter. Reportedly will be seeing urology in [...] ischemic evaluation. No unstable symptoms, has indwelling burt with unclear Urologic procedures planned and most [...] Cataract surg (more content not included)... Normal [facility] Tobacco Screening.on 023 Adult depression screening assessment No [facility] 600 DO Work Phone: Tobacco use status [facility] b) No [facility] 600 DO Work Phone: Ambulatory Visit Summaryon 0 12-28-2022 Ambulatory Visit Summary SOLOMON FELDMAN SR :1965 Visit Date:12/28/2022 Ambulatory Visit Instructions Your Care Team Attending Physician - SOLEDAD HERRERA, Yeyo Blum Primary Care Physician - JENARO LYNCH DO This Is Your Medications List acetaminophen-hydrocodone ([place] 325 mg-5 mg oral tablet) albuterol (ProAir [...] Follow-Up Appointments Monday 10:15 AM EDT With: SOLEDAD HERRERA, Yeyo Blum Where: [facility] [place] Normal [facility] Formson 11-24-2022 Forms [id number]#1.00CD:127 Normal [facility] Screenson 11-24-2022 Screens [id number]#1.00CD:1 27 Normal [facility] Patient Educationon 11-24-19 23 Patient Education Urology [...] provider. Document Revised: 08/11/2021 Document Reviewed: 05/07/2021 [employer] Patient Education ? 2021 [employer]. Marquise [place] Urology Office/Clinic Noteon 11-23-2022 Urology Office/Clinic Note Chief Complaint Tenderness of [...] the bladder. Discussed that pt will need burt placed for at least a month. 18 [...] bid x [address] [facility]. Follow-up With When Contact Information SOLEDAD HERRERA, Yeyo Blum, URL [facility] [address] , [place] [address]- Additional Instructions: 1 month for cath change with nurse then in 2 mos with PRW Patient Education Indwelling Urinary Catheter Insertion, Care After I, Lorie Leblanc, personally scribed for Dr. Silvestre on 11/23/2022 12:45:42. . Documentation recorded by the scribe, Lorie Leblanc, accurately reflects the services(s) I performed and decisions made by me. Authenticated by Dr. Silvestre on 11/23/2022 12:47:43. Problem List/Past Medical History Ongoing Arthritis Asthma BPH with obstruction/lower urinary tract symptoms COPD type A Fibromyalgia Head ache Heart attack Heart disease Heart murmur Hyperlipidemia Orchitis Restless leg Smoker Urinary retention Historical CHF (congestive heart failure) GERD [Gastroesophageal reflux disease] HTN [Hypertension] [place] (myocardial infarction) NIDDM Procedure/Surgical History Appendectomy, Bilateral Carpal Tunnel Surgery, Bilateral Eye Surgery, cardiac stents, [place] (more content not included)... Normal [facility] Comment on above: Result Comment: Elec tronically Signed By: SOLEDAD HERRERA, Yeyo lBum\.br\Date and Time Signed: 11/23/22 12:47 EDT\.br\Electronically Co-Signed By: Lorie Leblanc\.br\Date and Time Co-Signed: 11/23/22 12:46 EDT A1C with Estimated Average G juliannacharlie 09-27-2022 Glucose [Mass/Vol] 246 mg/dL Normal [facility] Comment on above: Order Comment: Reaso n for Exam Type 2 diabetes mellitus with circulatory disorder Result Comment: PERF ORMED BY: [place] [address] PATHOLOGIST ELECTRIC VEHICLE ELECTRICIAN CLIFFORD LOBATO M.D. Performed By: #### A 1C [facility] #### [address] HbA1c (Bld) [Mass fraction] 10.2 % High 4.3-5.6 [facility] [facility] Comment on above: Order Comment: Reaso n for Exam Type 2 diabetes mellitus with circulatory disorder Result Comment: Incr eased risk for diabetes: 5.7 - 6.4 diabetes: >6.4 glycemic control for adults with diabetes: <7.0 Performed By: #### A 1C [facility] #### [facility] [address] Alanine aminotransferase [En zymatic activity/volume] in Serum or PlasmaOrdered By: Jenaro Lynch on 09-27-2022 ALT [Catalytic activity/Vol] 15 U/L 7-52 [facility] Albumin [Mass/volume] in Ser um or Plasma by Bromocresol green (BCG) dye binding methoOrdered By: Jenaro Lynch on 09-27-2022 Albumin BCG dye [Mass/Vol] 4.1 g/dL 3.5-5.7 [facility] Alkaline phosphatase [Enzyma tic activity/volume] in Serum or PlasmaOrdered By: Jenaro Lynch on 09-27-2022 ALP [Catalytic activity/Vol] 116 U/L 34-104 [facility] Aspartate aminotransferase [ Enzymatic activity/volume] in Serum or PlasmaOrdered By: Jenaro Lynch on 09-27-2022 AST [Catalytic activity/Vol] 15 U/L 13-39 [facility] Basophils Auto (Bld) [#/Vol] Ordered By: Jenaro Lynch on 09-27-2022 Basophils (Bld) [#/Vol] 0.1 10*3/uL 0.0-0.2 [facility] Basophils/100 WBC Auto (Bld) Ordered By: Jnearo Lynch on 09-27-2022 Basophils/100 WBC (Bld) 1.1 % . [facility] Bilirubin.total [Mass/volume ] in Serum or PlasmaOrdered By: Jenaro Lynch on 09-27-2022 Bilirubin [Mass/Vol] 0.4 mg/dL 0.3-1.0 [facility] Calcium [Mass/volume] in Ser um or PlasmaOrdered By: Jenaro Lynch on 09-27-2022 Calcium [Mass/Vol] 8.8 mg/dL 8.6-10.3 [facility] Carbon dioxide, total [Moles /volume] in Serum or PlasmaOrdered By: Jenaro Lynch on 09-27-2022 CO2 [Moles/Vol] 27.2 mmol/L 21.0-31.0 [facility] Chloride [Moles/volume] in S ilia or PlasmaOrdered By: Jenaro Lynhc on 09-27-2022 Chloride [Moles/Vol] 99 mmol/L 98-107 [facility] Cholesterol [Mass/volume] in Serum or PlasmaOrdered By: Jenaro Lynch on 09-27-2022 Cholesterol [Mass/Vol] 104 mg/dL 140-200 [facility] Comment on above: Chol less than 200 m g/dl low riskChol 201-239 mg/dl borderline riskChol 240 mg/dl and greater high risk Cholesterol in LDL Calc [Mas s/Vol]Ordered By: Jenaro Lynch on 09-27-2022 Cholesterol in LDL [Mass/Vol] TNP [facility] Comment on above: Test not performed Cholesterol in LDL [Mass/vol ume] in Serum or PlasmaOrdered By: Jenaro Lynch on 09-27-2022 Cholesterol in LDL [Mass/Vol] 38 mg/dL 0-100 [facility] Comment on above: LDL ATP III CLASSIFI CATIONLDL less than 100 mg/dL OptimalLDL 100-129 mg/dL Near or above optimalLDL 130-159 mg/dL Borderline highLDL 160-189 mg/dL HighLDL greater than 189 mg/dL Very high Cholesterol in VLDL Calc [Ma ss/Vol]Ordered By: Jenaro Lynch on 09-27-2022 Cholesterol in VLDL [Mass/Vol] 99 mg/dL [facility] Complete Blood Count Auto Di ffon 09-27-2022 Basophils (Bld) [#/Vol] 0.1 10*3/uL Normal 0.0-0.2 [facility] Comment on above: Order Comment: Reaso n for Exam Hyperlipidemia;Type 2 diabetes mellitus with circulatory dis Result Comment: PERF ORMED BY: [place] [address] PATHOLOGIST ELECTRIC [employer] ELECTRICIAN CLIFFORD LOBATO M.D. Performed By: #### C BC #### [address] Basophils/100 WBC (Bld) 1.1 % Normal . [facility] Comment on above: Order Comment: Reaso n for Exam Hyperlipidemia;Type 2 diabetes mellitus with circulatory dis Performed By: #### C BC #### [facility] [address] [place] [address] [place] Eosinophils (Bld) [#/Vol] 0.7 10*3/uL High 0.0-0.45 [facility] Comment on above: Order Comment: Reaso n for Exam Hyperlipidemia;Type 2 diabetes mellitus with circulatory dis Performed By: #### C BC #### [facility] [address] [place] [address] [place] Eosinophils/100 WBC (Bld) 5.9 % Normal . [facility] Comment on above: Order Comment: Reaso n for Exam Hyperlipidemia;Type 2 diabetes mellitus with circulatory dis Performed By: #### C BC #### [facility] [address] Erythrocyte distribution width (RBC) [Ratio] 16.0 % High 12.0-14.8 [facility] Comment on above: Order Comment: Reaso n for Exam Hyperlipidemia;Type 2 diabetes mellitus with circulatory dis Performed By: #### C BC #### [address] Hematocrit (Bld) [Volume fraction] 41.0 % Normal 38.8-50.0 [facility] Comment on above: Order Comment: Reaso n for Exam Hyperlipidemia;Type 2 diabetes mellitus with circulatory dis Performed By: #### C BC #### [place] [address] [place] Hemoglobin (Bld) [Mass/Vol] 13.2 g/dL Normal 13.0-17.0 [facility] Comment on above: Order Comment: Reaso n for Exam Hyperlipidemia;Type 2 diabetes mellitus with circulatory dis Performed By: #### C BC #### [facility] [address] [place] [address] [place] Lymphocytes (Bld) [#/Vol] 2.3 10*3/uL Normal 1.00-4.8 [facility] Comment on above: Order Comment: Reaso n for Exam Hyperlipidemia;Type 2 diabetes mellitus with circulatory dis Performed By: #### C BC #### [place] [address] [place] Lymphocytes/100 WBC (Bld) 18.2 % Normal . [facility] Comment on above: Order Comment: Reaso n for Exam Hyperlipidemia;Type 2 diabetes mellitus with circulatory dis Performed By: #### C BC #### [facility] [address] MCH (RBC) [Entitic mass] 23.9 pg Low 27.5-35.2 [facility] Comment on above: Order Comment: Reaso n for Exam Hyperlipidemia;Type 2 diabetes mellitus with circulatory dis Performed By: #### C BC #### [address] MCV (RBC) [Entitic vol] 74.3 fL Low 83.5-101 [facility] Comment on above: Order Comment: Reaso n for Exam Hyperlipidemia;Type 2 diabetes mellitus with circulatory dis Performed By: #### C BC #### [address] Mean Corpuscular HGB Conc 32.2 g/dL Low 32.5-35.6 [facility] Comment on above: Order Comment: Reaso n for Exam Hyperlipidemia;Type 2 diabetes mellitus with circulatory dis Performed By: #### C BC #### [address] Monocytes (Bld) [#/Vol] 1.0 10*3/uL High 0.0-0.8 [facility] Comment on above: Order Comment: Reaso n for Exam Hyperlipidemia;Type 2 diabetes mellitus with circulatory dis Performed By: #### C BC #### [place] [address] [place] Monocytes/100 WBC (Bld) 7.9 % Normal . [facility] Comment on above: Order Comment: Reaso n for Exam Hyperlipidemia;Type 2 diabetes mellitus with circulatory dis Performed By: #### C BC #### [facility] [address] [place] [address] [place] Neutrophils (Bld) [#/Vol] 8.3 10*3/uL High 1.8-7.7 [facility] Comment on above: Order Comment: Reaso n for Exam Hyperlipidemia;Type 2 diabetes mellitus with circulatory dis Performed By: #### C BC #### [facility] [address] Neutrophils/100 WBC (Bld) 66.9 % Normal . [facility] Comment on above: Order Comment: Reaso n for Exam Hyperlipidemia;Type 2 diabetes mellitus with circulatory dis Performed By: #### C BC #### [facility] [address] NRBC% 0.1 /100{WBC} Normal 0-0.5 [facility] Comment on above: Order Comment: Reaso n for Exam Hyperlipidemia;Type 2 diabetes mellitus with circulatory dis Performed By: #### C BC #### [facility] [address] Platelet mean volume (Bld) [Entitic vol] 9.1 fL Normal 6.6-10.1 [facility] Comment on above: Order Comment: Reaso n for Exam Hyperlipidemia;Type 2 diabetes mellitus with circulatory dis Performed By: #### C BC #### [facility] [address] Platelets (Bld) [#/Vol] 209 10*3/uL Normal 150-450 [facility] Comment on above: Order Comment: Reaso n for Exam Hyperlipidemia;Type 2 diabetes mellitus with circulatory dis Performed By: #### C BC #### [address] RBC (Bld) [#/Vol] 5.52 10*6/uL Normal 3.90-5.60 [facility] Comment on above: Order Comment: Reaso n for Exam Hyperlipidemia;Type 2 diabetes mellitus with circulatory dis Performed By: #### C BC #### [facility] [address] WBC (Bld) [#/Vol] 12.4 10*3/uL High 4.1-10.5 [facility] Comment on above: Order Comment: Reaso n for Exam Hyperlipidemia;Type 2 diabetes mellitus with circulatory dis Performed By: #### C BC #### [facility] [address] Comprehensive Metabolic Pane bárbara 09-27-2022 Albumin [Mass/Vol] 4.1 g/dL Normal 3.5-5.7 [facility] Comment on above: Order Comment: Reaso n for Exam Hyperlipidemia;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 Reason for Exam Gout Performed By: #### T SH3, LDLD, CMP, URIC, LIPID #### [facility] [address] Albumin/Globulin [Mass ratio] 1.4 {ratio} Normal [facility] Comment on above: Order Comment: Reaso n for Exam Hyperlipidemia;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 Reason for Exam Gout Performed By: #### T SH3, LDLD, CMP, URIC, LIPID #### [facility] [address] ALP [Catalytic activity/Vol] 116 U/L High 34-104 [facility] Comment on above: Order Comment: Reaso n for Exam Hyperlipidemia;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 Reason for Exam Gout Performed By: #### T SH3, LDLD, CMP, URIC, LIPID #### [facility] [address] ALT [Catalytic activity/Vol] 15 U/L Normal 7-52 [facility] Comment on above: Order Comment: Reaso n for Exam Hyperlipidemia;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 Reason for Exam Gout Performed By: #### T SH3, LDLD, CMP, URIC, LIPID #### [facility] [address] [place] [address] Anion gap [Moles/Vol] 14.1 mmol/L Normal 6.0-15.0 [facility] Comment on above: Order Comment: Reaso n for Exam Hyperlipidemia;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 Reason for Exam Gout Performed By: #### T SH3, LDLD, CMP, URIC, LIPID #### [facility] [address] [place] [address] [place] AST [Catalytic activity/Vol] 15 U/L Normal 13-39 [facility] Comment on above: Order Comment: Reaso n for Exam Hyperlipidemia;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 Reason for Exam Gout Performed By: #### T SH3, LDLD, CMP, URIC, LIPID #### [facility] [address] [place] [address] [place] Bilirubin [Mass/Vol] 0.4 mg/dL Normal 0.3-1.0 [facility] Comment on above: Order Comment: Reaso n for Exam Hyperlipidemia;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 Reason for Exam Gout Performed By: #### T SH3, LDLD, CMP, URIC, LIPID #### [facility] [address] Calcium [Mass/Vol] 8.8 mg/dL Normal 8.6-10.3 [facility] Comment on above: Order Comment: Reaso n for Exam Hyperlipidemia;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 Reason for Exam Gout Performed By: #### T SH3, LDLD, CMP, URIC, LIPID #### [facility] [address] [place] [address] [place] Chloride [Moles/Vol] 99 mmol/L Normal 98-107 [facility] Comment on above: Order Comment: Reaso n for Exam Hyperlipidemia;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 Reason for Exam Gout Performed By: #### T SH3, LDLD, CMP, URIC, LIPID #### [facility] [address] [place] [address] [place] CO2 [Moles/Vol] 27.2 mmol/L Normal 21.0-31.0 [facility] Comment on above: Order Comment: Reaso n for Exam Hyperlipidemia;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 Reason for Exam Gout Performed By: #### T SH3, LDLD, CMP, URIC, LIPID #### [facility] [address] [place] [id number] [place] Creatinine [Mass/Vol] 1.84 mg/dL High 0.70-1.30 [facility] Comment on above: Order Comment: Reaso n for Exam Hyperlipidemia;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 Reason for Exam Gout Performed By: #### T SH3, LDLD, CMP, URIC, LIPID #### [facility] [address] [place] [id number] [place] GFR/1.73 sq M.predicted MDRD (S/P/Bld) [Vol rate/Area] 42.232 mL/min/{1.73_m2} [facility] Comment on above: Order Comment: Reaso n for Exam Hyperlipidemia;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 Reason for Exam Gout Performed By: #### T SH3, LDLD, CMP, URIC, LIPID #### [facility] [address] Globulin (S) [Mass/Vol] 2.9 g/dL [facility] Comment on above: Order Comment: Reaso n for Exam Hyperlipidemia;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 Reason for Exam Gout Performed By: #### T SH3, LDLD, CMP, URIC, LIPID #### [facility] [address] Glucose [Mass/Vol] 225 mg/dL High 70-100 [facility] Comment on above: Order Comment: Reaso n for Exam Hyperlipidemia;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 Reason for Exam Gout Result Comment: [facility] Glucose Reference Range is dependent on time and content of last meal. Glucose of more than 200 mg/dL in a nonstressed, ambulatory subject supports the diagnosis of Diabetes Mellitus. ADA recommended reference range Performed By: #### T SH3, LDLD, CMP, URIC, LIPID #### [facility] [address] Potassium [Moles/Vol] 4.3 mmol/L Normal 3.5-5.1 [facility] Comment on above: Order Comment: Reaso n for Exam Hyperlipidemia;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 Reason for Exam Gout Performed By: #### T SH3, LDLD, CMP, URIC, LIPID #### [facility] [address] [place] [id number] [facility] Protein [Mass/Vol] 7.0 g/dL Normal 6.4-8.9 [facility] Comment on above: Order Comment: Reaso n for Exam Hyperlipidemia;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 Reason for Exam Gout Performed By: #### T SH3, LDLD, CMP, URIC, LIPID #### [facility] [address] [place] [id number] [facility] Sodium [Moles/Vol] 136 mmol/L Normal 136-145 [facility] Comment on above: Order Comment: Reaso n for Exam Hyperlipidemia;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 Reason for Exam Gout Performed By: #### T SH3, LDLD, CMP, URIC, LIPID #### [facility] [address] [place] [id number] [place] Urea nitrogen [Mass/Vol] 15 mg/dL Normal 7-25 [facility] Comment on above: Order Comment: Reaso n for Exam Hyperlipidemia;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 Reason for Exam Gout Performed By: #### T SH3, LDLD, CMP, URIC, LIPID #### [facility] [address] [place] [id number] [place] Creatinine [Mass/volume] in Serum or PlasmaOrdered By: Jenaro Lynch on 09-27-2022 Creatinine [Mass/Vol] 1.84 mg/dL 0.70-1.30 [facility] Eosinophils Auto (Bld) [#/Vo l]Ordered By: Jenaro Lynch on 09-27-2022 Eosinophils (Bld) [#/Vol] 0.7 10*3/uL 0.0-0.45 [facility] Eosinophils/100 WBC Auto (Bl d)Ordered By: Jenaro Lynch on 09-27-2022 Eosinophils/100 WBC (Bld) 5.9 % . [facility] Erythrocyte distribution wid th Auto (RBC) [Ratio]Ordered By: Jenaro Lynch on 09-27-2022 Erythrocyte distribution width (RBC) [Ratio] 16.0 % 12.0-14.8 [facility] Globulin Calc (S) [Mass/Vol] Ordered By: Jenaro Lynch on 09-27-2022 Globulin (S) [Mass/Vol] 2.9 g/dL [facility] Glucose [Mass/volume] in Ser um or PlasmaOrdered By: Jenaro Lynch on 09-27-2022 Glucose [Mass/Vol] 225 mg/dL 70-100 [facility] Comment on above: ADA recommended refe rence rangeRandom Glucose Reference Range is dependent on time and content of last meal. Glucose of more than 200 mg/dL in a nonstressed, ambulatory subject supports the diagnosis of Diabetes Mellitus. Hematocrit Auto (Bld) [Volum e fraction]Ordered By: Jenaro Lynch on 09-27-2022 Hematocrit (Bld) [Volume fraction] 41.0 % 38.8-50.0 [facility] Hemoglobin [Mass/volume] in BloodOrdered By: Jenaro Lynch on 09-27-2022 Hemoglobin (Bld) [Mass/Vol] 13.2 g/dL 13.0-17.0 [facility] LDL Cholesterol Measuredon 0 09-27-2022 LDL Cholesterol Measured 38 mg/dL Normal 0-100 [facility] Comment on above: Order Comment: Reaso [...] #### T SH3, LDLD, CMP, URIC, LIPID ####[facility] [id number] Leukocytes [#/volume] correc jorge for nucleated erythrocytes in Blood by Automated counOrdered By: Jenaro Lynch on 09-27-2022 WBC corrected for nucl RBC Auto (Bld) [#/Vol] 12.4 10*3/uL 4.1-10.5 [facility] Lipid Panelon 09-27-2022 Cholesterol [Mass/Vol] 104 mg/dL Low 140-200 [facility] Comment on above: Order Comment: Reaso n for Exam Hyperlipidemia;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 Reason for Exam Gout Result Comment: Chol less than 200 mg/dl low risk Chol 201-239 mg/dl borderline risk Chol 240 mg/dl and greater high risk Performed By: #### T SH3, LDLD, CMP, URIC, LIPID #### [facility] [address] Cholesterol in HDL [Mass/Vol] 21 mg/dL Low 29-71 [facility] Comment on above: Order Comment: Reaso n for Exam Hyperlipidemia;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 Reason for Exam Gout Result Comment: HDL CHOL ATP-III CLASSIFICATION Cardiovascular Risk HDL > or equal to 60 mg/dL LOW HDL < 40 mg/dL HIGH Performed By: #### T SH3, LDLD, CMP, URIC, LIPID #### [facility] [address] [place] [id number] [facility] Cholesterol.total/Chol esterol in HDL [Mass ratio] 5.0 {ratio} Normal <5.0 [facility] Comment on above: Order Comment: Reaso n for Exam Hyperlipidemia;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 Reason for Exam Gout Performed By: #### T SH3, LDLD, CMP, URIC, LIPID #### [facility] [address] LDL Cholesterol,Calculated Not performed Normal 0-100 [facility] Comment on above: Order Comment: Reaso n for Exam Hyperlipidemia;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 Reason for Exam Gout Performed By: #### T SH3, LDLD, CMP, URIC, LIPID #### [facility] [address] Triglyceride w/Reflex 497 mg/dL High 0-149 [facility] Comment on above: Order Comment: Reaso n [...] T SH3, LDLD, CMP, URIC, LIPID #### [facility] [address] [place] [id number] [facility] VLDL CHOLESTEROL 99 mg/dL Normal [facility] Comment on above: Order Comment: Reaso n for Exam Hyperlipidemia;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 Reason for Exam Gout Performed By: #### T SH3, LDLD, CMP, URIC, LIPID #### [facility] [address] [place] [id number] [facility] Lymphocytes Auto (Bld) [#/Vo l]Ordered By: Jenaro Lynch on 09-27-2022 Lymphocytes (Bld) [#/Vol] 2.3 10*3/uL 1.00-4.8 [facility] Lymphocytes/100 WBC Auto (Bl d)Ordered By: Jenaro Lynch on 09-27-2022 Lymphocytes/100 WBC (Bld) 18.2 % . [facility] MCH Auto (RBC) [Entitic mass ]Ordered By: Jenaro Lynch on 09-27-2022 MCH (RBC) [Entitic mass] 23.9 pg 27.5-35.2 [facility] MCHC Auto (RBC) [Mass/Vol]Or dered By: Jenaro Lynch on 09-27-2022 MCHC (RBC) [Mass/Vol] 32.2 g/dL 32.5-35.6 [facility] MCV Auto (RBC) [Entitic vol] Ordered By: Jenaro Lynch on 09-27-2022 MCV (RBC) [Entitic vol] 74.3 fL 83.5-101 [facility] Monocytes Auto (Bld) [#/Vol] Ordered By: Jenaro Lynch on 09-27-2022 Monocytes (Bld) [#/Vol] 1.0 10*3/uL 0.0-0.8 [facility] Monocytes/100 WBC Auto (Bld) Ordered By: Jenaro Lynch on 09-27-2022 Monocytes/100 WBC (Bld) 7.9 % . [facility] Neutrophils Auto (Bld) [#/Vo l]Ordered By: Jenaro Lynch on 09-27-2022 Neutrophils (Bld) [#/Vol] 8.3 10*3/uL 1.8-7.7 [facility] Neutrophils/100 WBC Auto (Bl d)Ordered By: Jenaro Lynch on 09-27-2022 Neutrophils/100 WBC (Bld) 66.9 % . [facility] No Panel InformationOrdered By: Jenaro Lynch on 09-27-2022 Estimated GFR (CKD-EPI) 42.232 mL/Min [facility] Creatinine Clearance (Chem N/A [facility] Nucleated erythrocytes [Pres ence] in Blood by Automated countOrdered By: Jenaro Lynch on 09-27-2022 Nucleated RBC Auto Ql (Bld) 0.1 /100{WBC} 0-0.5 [facility] Platelet mean volume Auto (B ld) [Entitic vol]Ordered By: Jenaro Lynch on 09-27-2022 Platelet mean volume (Bld) [Entitic vol] 9.1 fL 6.6-10.1 [facility] Platelets Auto (Bld) [#/Vol] Ordered By: Jenaro Lynch on 09-27-2022 Platelets (Bld) [#/Vol] 209 10*3/uL 150-450 [facility] Potassium [Moles/volume] in Serum or PlasmaOrdered By: Jenaro Lynch on 09-27-2022 Potassium [Moles/Vol] 4.3 mmol/L 3.5-5.1 [facility] Protein [Mass/volume] in Ser um or PlasmaOrdered By: Jenaro Lynch on 09-27-2022 Protein [Mass/Vol] 7.0 g/dL 6.4-8.9 [facility] RBC Auto (Bld) [#/Vol]Ordere d By: Jenaro Lynch on 09-27-2022 RBC (Bld) [#/Vol] 5.52 10*6/uL 3.90-5.60 [facility] Serum or plasma albumin/glob ulin mass ratioOrdered By: Jenaro Lynch on 09-27-2022 Albumin/Globulin [Mass ratio] 1.4 {ratio} [facility] Serum or plasma anion gap de terminationOrdered By: Jenaro Lynch on 09-27-2022 Anion gap [Moles/Vol] 14.1 mmol/L 6.0-15.0 [facility] Serum or plasma high density lipoprotein (HDL) cholesterol measurementOrdered By: Jenaro Lynch on 09-27-2022 Cholesterol in HDL [Mass/Vol] 21 mg/dL 29-71 [facility] Comment on above: HDL CHOL ATP-III CLA SSIFICATION Cardiovascular RiskHDL > or equal to 60 mg/dL LOWHDL < 40 mg/dL HIGH Serum or plasma total choles terol/high density lipoprotein (HDL) cholesterol mass ratOrdered By: Jenaro Lynch on 09-27-2022 Cholesterol.total/Chol esterol in HDL [Mass ratio] 5.0 {ratio} <5.0 [facility] Sodium [Moles/volume] in Ser um or PlasmaOrdered By: Jenaro Lynch on 09-27-2022 Sodium [Moles/Vol] 136 mmol/L 136-145 [facility] Thyroid Stimulating Hormoneo n 09-27-2022 TSH Qn 3.62 m[IU]/L Normal 0.45-5.33 [facility] Comment on above: Order Comment: Reaso n for Exam Hyperlipidemia;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 Reason for Exam Gout Result Comment: PERF ORMED BY: [facility] [address] [place] [address] PATHOLOGIST ELECTRIC [employer] ELECT[employer]ICIAN CLIFFORD LOBATO M.D. Performed By: #### T SH3, LDLD, CMP, URIC, LIPID #### [facility] [address] Order Comment: Reaso n for Exam Hyperlipidemia;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 Reason for Exam Gout Performed By: #### T SH3, LDLD, CMP, URIC, LIPID ####[facility] [id number] Thyrotropin [Units/volume] i n Serum or PlasmaOrdered By: Jenaro Lynch on 09-27-2022 TSH Qn 3.62 m[IU]/L 0.45-5.33 [facility] Triglyceride [Mass/volume] i n Serum or PlasmaOrdered By: Jenaro Lynch on 09-27-2022 Triglyceride [Mass/Vol] 497 mg/dL 0-149 [facility] Comment on above: If the triglyceride result [...] on 09-27-2022 Urate [Mass/Vol] 6.2 mg/dL 2.4-7.6 [facility] Urea nitrogen [Mass/volume] in Serum or PlasmaOrdered By: Jenaro Lynch on 09-27-2022 Urea nitrogen [Mass/Vol] 15 mg/dL 12-27 [facility] Uric Acidon 09-27-2022 Urate [Mass/Vol] 6.2 mg/dL Normal 2.4-7.6 [facility] Comment on above: Order Comment: Reaso n for Exam Hyperlipidemia;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 Reason for Exam Gout Performed By: #### T SH3, LDLD, CMP, URIC, LIPID #### [address] WBC Auto (Bld) [#/Vol]Ordere d By: Jenaro Lynch on 09-27-2022 WBC (Bld) [#/Vol] 12.4 10*3/uL 4.1-10.5 [facility] [facility] MR head/brain wo conon 09-03 MR head/brain wo con [facility] [place] [address] [place] [address] MRI Report Signed Patient: Solomon Feldman SR MR#: [id number] : 1965 Acct:[id number] Age/Sex: 57 / M ADM Date: 09/02/22 Loc: MR Room: Type: [facility] Attending Dr: Shana Mclaughlin PA-C Copies to: [...] Marks Jr., D.OMary09/03/2022 8:37 AM Dictation Location: [facility]--15 Transcribed By: [facility] 09/03/22 08 Dictated By: Negro Marks Jr, DO 09/03/22 08 Signed By: 09/03/22 0837 Normal [facility] A1C HEMOGLOBINon 02-15-2022 HbA1c (Bld) [Mass fraction] % [employer] [facility] Other HbA1c (Bld) [Mass fraction]o n 02-15-2022 A1C HEMOGLOBIN [place] [employer] Other Tobacco Screening.on 022 Adult depression screening assessment No [facility] [facility] 250 DO Work Phone: Tobacco use status CPHS b) No [facility] [facility] 250 DO Work Phone: A1C HEMOGLOBINon 07-27-2021 HbA1c (Bld) [Mass fraction] 11.8 % [employer] [facility] Other HbA1c (Bld) [Mass fraction]o n 07-27-2021 A1C HEMOGLOBIN [employer] Other Vital Signs Date Time Vital Sign Value Performing Clinician Facility 07-12-2023 18:03-0500 Diastolic blood pressure 73 mm[Hg] DO Jenaro Fraustos Work Phone: [facility] 07-12-2023 18:03-0500 Heart rate 76 /min DO Jenaro Jetts Work Phone: [facility] 07-12-2023 18:03-0500 Respiratory rate 20 /min DO Jenaro Kuns Work Phone: [facility] 07-12-2023 18:03-0500 SaO2% (BldA) [Mass fraction] 98 % DO Jenaro Kuns Work Phone: [facility] 07-12-2023 18:03-0500 Systolic blood pressure 125 mm[Hg] DO Jenaro Kuns Work Phone: [facility] 07-12-2023 16:15-0500 Body height 182.88 cm DO Jenaro Lynch Work Phone: [facility] 07-12-2023 16:15-0500 Body temperature 98.9 [degF] DO Jenaro Lynch Work Phone: [facility] 07-12-2023 16:15-0500 Body weight 99.25 kg DO Jenarogorge Lynch Work Phone: [facility] 06-02-2023 10:56-0500 Blood Pressure Location Yeyo SILVESTRE [facility] 06-02-2023 10:56-0500 Body temperature 96.98 [degF] Yeyo SILVESTRE [facility] 06-02-2023 10:56-0500 Diastolic blood pressure 84 mm[Hg] Yeyo SILVESTRE [facility] 06-02-2023 10:56-0500 Heart rate 68 /min Yeyo SILVESTRE [facility] 06-02-2023 10:56-0500 Systolic blood pressure 124 mm[Hg] Yeyo SILVESTRE [facility] 04-06-2023 13:15-0400 Body height 180.34 cm Jenaro Lynch Other [employer] [facility] Other 04-06-2023 13:15-0400 Body mass index (BMI) [Ratio] 29.43 kg/m2 Jenaro Lynch Other [employer] Other 04-06-2023 13:15-0400 Body weight 95.71 kg Jenaro Lynch Other [employer] Other 04-06-2023 13:15-0400 Diastolic blood pressure 70 mm[Hg] Jenaro Rory Other [facility] Other 04-06-2023 13:15-0400 Respiratory rate 18 /min Jenaro Rory Other [facility] Other 04-06-2023 13:15-0400 SaO2% (BldA) [Mass fraction] 97 % Jenaro Jettjoe Other [employer] Other 04-06-2023 13:15-0400 Systolic blood pressure 100 mm[Hg] Jenaro Lynch Other [facility] Other 03-15-2023 08:30-0400 Body height 180.34 cm Jenarogorge Fraustojoe Other [employer] Other 03-15-2023 08:30-0400 Body mass index (BMI) [Ratio] 29.01 kg/m2 Jenaro Rory Other [employer] Other 03-15-2023 08:30-0400 Body weight 94.35 kg Jenaro Rory Other [employer] Other 03-15-2023 08:30-0400 Diastolic blood pressure 62 mm[Hg] Jenaro Lynch Other [employer] Other 03-15-2023 08:30-0400 Respiratory rate 16 /min Jenaro Lynch Other [employer] Other 03-15-2023 08:30-0400 SaO2% (BldA) [Mass fraction] 97 % Jenaro Lynch Other [employer] Other 03-15-2023 08:30-0400 Systolic blood pressure 88 mm[Hg] Jenaro Lynch Other [facility] [employer] Other 02-15-2023 10:04-0400 Body height 182.88 cm Jenaro Guerra Rory Work Phone: [facility] 250 DO Work Phone: 02-15-2023 10:04-0400 Body mass index (BMI) [Ratio] 28.62 kg/m2 Jenaro Fraustojoe Work Phone: [facility] 250 DO Work Phone: 02-15-2023 10:04-0400 Body surface area Derived from formula 2.18 m2 Jenaro Lynch Work Phone: [facility] 250 DO Work Phone: 02-15-2023 10:04-0400 Body weight 95.71 kg Jenaro Mari Lynch Work Phone: [facility] 250 DO Work Phone: 02-15-2023 10:04-0400 Diastolic blood pressure 70 mm[Hg] Jenaro Guerra Rory Work Phone: [facility] 250 DO Work Phone: 02-15-2023 10:04-0400 Heart rate 76 /min Jenaro Guerra Rory Work Phone: [facility] 250 DO Work Phone: 02-15-2023 10:04-0400 Systolic blood pressure 102 mm[Hg] Jenaro Fraustojoe Work Phone: [facility] 250 DO Work Phone: 01-30-2023 10:23-0400 Blood Pressure Location Yeyo SILVESTRE [facility] 01-30-2023 10:23-0400 Diastolic blood pressure 74 mm[Hg] Yeyo SILVESTRE [facility] 01-30-2023 10:23-0400 Heart rate 68 /min Yeyo SILVESTRE [facility] 01-30-2023 10:23-0400 Respiratory rate 16 /min Yeyo SILVESTRE [facility] 01-30-2023 10:23-0400 Systolic blood pressure 130 mm[Hg] Yeyo SILVESTRE [facility] 01-11-2023 15:08-0400 Body height 180.34 cm Jenaro Lynch Work Phone: [facility] [employer] 600 DO Work Phone: 01-11-2023 15:08-0400 Body mass index (BMI) [Ratio] 30.13 kg/m2 Jenaro Lynch Work Phone: [facility] [employer] 600 DO Work Phone: 01-11-2023 15:08-0400 Body surface area Derived from formula 2.18 m2 Jenaro Lynch Work Phone: [facility] [employer] 600 DO Work Phone: 01-11-2023 15:08-0400 Body weight 97.98 kg Jenaro Lynch Work Phone: [facility] [employer] 600 DO Work Phone: 01-11-2023 15:08-0400 Diastolic blood pressure 86 mm[Hg] Jenaro Lynch Work Phone: [facility] [employer] 600 DO Work Phone: 01-11-2023 15:08-0400 Heart rate 74 /min Jenaro Lynch Work Phone: [facility] [employer] 600 DO Work Phone: 01-11-2023 15:08-0400 Systolic blood pressure 122 mm[Hg] Jenaro Lynch Work Phone: [facility] [employer] 600 DO Work Phone: 12-01-2022 12:45-0400 Body height 180.34 cm Jenaro Lynch Other [employer] Other 12-01-2022 12:45-0400 Body mass index (BMI) [Ratio] 29.73 kg/m2 Jenaro Lynch Other [employer] Other 12-01-2022 12:45-0400 Body weight 96.71 kg Jenaro Lynch Other [employer] Other 12-01-2022 12:45-0400 Diastolic blood pressure 70 mm[Hg] Jenaro Lynch Other [employer] Other 12-01-2022 12:45-0400 Respiratory rate 18 /min Jenaro Lynch Other [employer] Other 12-01-2022 12:45-0400 SaO2% (BldA) [Mass fraction] 94 % Jenaro Lynch Other [employer] Other 12-01-2022 12:45-0400 Systolic blood pressure 122 mm[Hg] Jenaro Lynch Other [employer] Other 11-23-2022 11:38-0400 Blood Pressure Location Yeyo SILVESTRE [facility] 11-23-2022 11:38-0400 Diastolic blood pressure 85 mm[Hg] Yeyo SILVESTRE [facility] 11-23-2022 11:38-0400 Heart rate 76 /min Yeyo SILVESTRE [facility] 11-23-2022 11:38-0400 Systolic blood pressure 130 mm[Hg] Yeyo SILVESTRE [facility] 07-04-2022 10:30-0500 Body height 180.34 cm Jenaro Lynch Other [employer] Other 07-04-2022 10:30-0500 Body mass index (BMI) [Ratio] 29.43 kg/m2 Jenaro Lynch Other [employer] Other 07-04-2022 10:30-0500 Body weight 95.71 kg Jenaro Lynch Other [employer] Other 07-04-2022 10:30-0500 Diastolic blood pressure 86 mm[Hg] Jenaro Lynch Other [employer] Other 07-04-2022 10:30-0500 Respiratory rate 16 /min Jenaro Lynch Other [employer] Other 07-04-2022 10:30-0500 Systolic blood pressure 146 mm[Hg] Jenaro Lynch Other [employer] Other 02-15-2022 13:45-0400 Body height 180.34 cm Jenaro Lynch Other [employer] Other 02-15-2022 13:45-0400 Body mass index (BMI) [Ratio] 30.12 kg/m2 Jenaro Lynch Other [employer] Other 02-15-2022 13:45-0400 Body weight 97.98 kg Jenaro Lynch Other [employer] Other 02-15-2022 13:45-0400 Diastolic blood pressure 62 mm[Hg] Jenaro Jettjoe Other [employer] Other 02-15-2022 13:45-0400 Respiratory rate 16 /min Jenaro Fraustojoe Other [employer] Other 02-15-2022 13:45-0400 SaO2% (BldA) [Mass fraction] 96 % Jenaro Fraustojoe Other [employer] Other 02-15-2022 13:45-0400 Systolic blood pressure 100 mm[Hg] Jenaro Jettjoe Other [employer] Other 10-26-2021 10:01-0400 Body height 180.34 cm Jenaro uGerra Rory Work Phone: [employer] [facility] [employer] 250 DO Work Phone: 10-26-2021 10:01-0400 Body mass index (BMI) [Ratio] 29.99 kg/m2 Jenaro Mari Lynch Work Phone: [employer] [employer] 250 DO Work Phone: 10-26-2021 10:01-0400 Body surface area Derived from formula 2.17 m2 Jenaro Fraustojoe Work Phone: [employer] [employer] 250 DO Work Phone: 10-26-2021 10:01-0400 Body weight 97.52 kg Jenaro Lynch Work Phone: [facility] 250 DO Work Phone: 10-26-2021 10:01-0400 Diastolic blood pressure 70 mm[Hg] Jenaro Lynch Work Phone: [facility] 250 DO Work Phone: 10-26-2021 10:01-0400 Heart rate 68 /min Jenaro Lynch Work Phone: [facility] 250 DO Work Phone: 10-26-2021 10:01-0400 Systolic blood pressure 104 mm[Hg] Jenaro Lynch Work Phone: [facility] [employer] 250 DO Work Phone: 10-19-2021 12:20-0400 Body height 180.34 cm Amina KinseyCodinGame Other [facility] Other 10-19-2021 12:20-0400 Body mass index (BMI) [Ratio] 30.65 kg/m2 Amina KinseyCodin[employer] Other [facility] [employer] Other 10-19-2021 12:20-0400 Body temperature 96.8 [degF] Amina [employer] Other [facility] [employer] Other 10-19-2021 12:20-0400 Body weight 99.7 kg Amina [employer] Other [employer] Other 10-19-2021 12:20-0400 Diastolic blood pressure 71 mm[Hg] Amina Tonyembraases Other [place] [employer] Other 10-19-2021 12:20-0400 Respiratory rate 18 /min Amina Gracia Other [employer] Other 10-19-2021 12:20-0400 SaO2% (BldA) [Mass fraction] 98 % Amina Fagan Other [employer] Other 10-19-2021 12:20-0400 Systolic blood pressure 111 mm[Hg] Amina Fagan Other [employer] Other 07-27-2021 14:00-0500 Body height 180.34 cm Jenaro Lynch Other [employer] Other 07-27-2021 14:00-0500 Body mass index (BMI) [Ratio] 30.4 kg/m2 Jenaro Lynch Other [employer] Other 07-27-2021 14:00-0500 Body weight 98.88 kg Jenaro Lynch Other [employer] Other 07-27-2021 14:00-0500 Diastolic blood pressure 76 mm[Hg] Jenaro Lynch Other [employer] Other 07-27-2021 14:00-0500 Respiratory rate 18 /min Jenaro Lynch Other [employer] Other 07-27-2021 14:00-0500 SaO2% (BldA) [Mass fraction] 98 % Jenaro Lynch Other [employer] Other 07-27-2021 14:00-0500 Systolic blood pressure 112 mm[Hg] Jenaro Lynch Other [employer] Other Encounters Encounter Date Encounter Type Care Provider Facility Start: 09-08-2023 ambulatory Yeyo SILVESTRE Facili ty:[facility] [place] Start: 07-31-2023 ambulatory Shana Caraballomaggie Facility:[facility] Start: 07-12-2023 End: 07-12-2023 Emergency department patient visit Jenarogorge Fraustojoe Facility:[facility] Start: 07-12-2023 End: 07-12-2023 Emergency department patient visit DO Jenarogorge Lynch Work Phone: [facility] Work Phone: Start: 07-07-2023 End: 07-07-2023 ambulatory Jenaro Fraustojoe Other [employer] Other Start: 07-07-2023 Telephone encounter Jenaro Lynch [facility] Start: 07-03-2023 End: 07-04-2023 ambulatory Yeyo SILVESTRE Facility:[facility] [place] Start: 06-26-2023 End: 06-26-2023 ambulatory Jenaro Lynch Other [employer] Other Start: 06-26-2023 Telephone encounter Jenaro Lynch [facility] Start: 06-02-2023 End: 06-03-2023 ambulatory Yeyo SILVESTRE Facility:[facility] [place] Start: 06-02-2023 End: 06-02-2023 Patient encounter procedure Yeyo SILVESTRE [facility] Start: 05-16-2023 End: 05-16-2023 ambulatory Jenaro Lynch Other [employer] Other Start: 05-16-2023 [address]phone [address]aro Lynch [facility] Start: 05-03-2023 End: 05-04-2023 ambulatory Yeyo SILVESTRE Facility:[facility] [place] Start: 05-03-2023 End: 05-03-2023 Patient encounter procedure Yeyo SILVESTRE [facility] [place] Start: 04-28-2023 End: 04-28-2023 ambulatory Jenaro Lynch Other [employer] Other Start: 04-28-2023 Telephone encounter Jenarogorge Lynch [facility] [place] Start: 04-18-2023 End: 04-19-2023 ambulatory Yeyo SILVESTRE Facility:[facility] [place] Start: 04-18-2023 End: 04-18-2023 Patient encounter procedure Yeyo R SOLEDAD [facility] [employer] Start: 04-17-2023 ambulatory Yeyo Ruizi ty:[facility] [place] Start: 04-13-2023 End: 04-14-2023 ambulatory Yeyo SILVESTRE Facility:[id number] Start: 04-11-2023 End: 04-11-2023 ambulatory Jenarogorge Lynch Other [employer] Other Start: 04-11-2023 Telephone encounter Jenarogorge Lynch [facility] [place] Start: 04-06-2023 End: 04-06-2023 ambulatory Jenarogorge Lynch Other [employer] Other Start: 04-06-2023 Encounter for other preprocedural examination Jenaro Jettjoe [facility] [place] Start: 04-06-2023 Office outpatient vi sit 25 minutes Jenaro Lynch [facility] [place] Start: 03-28-2023 End: 03-28-2023 ambulatory Jenaro Rory Other [employer] Other Start: 03-28-2023 Telephone encounter Jenarogorge Lynch [facility] [place] Start: 03-20-2023 ambulatory Yeyo SILVESTRE Facili ty:[facility] [place] Start: 03-16-2023 ambulatory Yeyo SILVESTRE Facili ty:[id number] Start: 03-15-2023 End: 03-15-2023 ambulatory Jenaro Lynch Other [facility] Other Start: 03-15-2023 Office outpatient vi sit [address] [facility] Start: 03-10-2023 End: 03-10-2023 ambulatory Jenaro Lynch Other [facility] Other Start: 03-10-2023 Telephone encounter Jenaro Lynch [facility] Start: 02-15-2023 Office outpatient vi sit 15 minutes Jenaro Lynch Work Phone: [facility] 250 DO Work Phone: Start: 02-15-2023 ambulatory Dolores Feldman Facility:[id number] Start: 02-14-2023 End: 02-15-2023 ambulatory Yeyo SILVESTRE Facility:[facility] Start: 02-14-2023 End: 02-14-2023 Patient encounter procedure Yeyo SILVESTRE [facility] Start: 02-08-2023 End: 02-09-2023 ambulatory Yeyo SILVESTRE Facility:[facility] Start: 02-08-2023 End: 02-08-2023 Patient encounter procedure Yeyo SILVESTRE [facility] Start: 01-30-2023 End: 01-31-2023 ambulatory Yeyo SILVESTRE Facility:[facility] Start: 01-30-2023 End: 01-30-2023 Patient encounter procedure Yeyo SILVESTRE [facility] Start: 01-25-[address] Jenaro Lynch Facility:[id number] Start: 01-17-2023 End: 01-17-2023 ambulatory Jenaro Lynch Other [employer] Other Start: 01-17-2023 Telephone encounter Jenaro Lynch [facility] [place] Start: 01-11-2023 Office outpatient vi sit 25 minutes Jenaro Lynch Work Phone: [facility] 600 DO Work Phone: Start: 01-11-2023 ambulatory oDlores Feldman Facility:[id number] Start: 12-28-2022 End: 12-29-2022 ambulatory Yeyoneel SILVESTRE Facility:[facility] [place] Start: 12-28-2022 End: 12-28-2022 Patient encounter procedure Yeyo R SILVESTRE [facility] [place] Start: 12-21-2022 ambulatory Yeyo Viktoria SILVESTRE Facili ty:[facility] [place] Start: 12-01-2022 End: 12-01-2022 ambulatory Jenaro Lynch Other [employer] Other Start: 12-01-2022 Office outpatient vi sit 25 minutes Jenaro Lynch [facility] [place] Start: 11-30-2022 ambulatory Yeyo SILVESTRE Facility :[facility] [place] Start: 11-23-2022 End: 11-24-2022 ambulatory Yeyo R SOLEDAD Facility:[facility] [place] Start: 11-23-2022 End: 11-23-2022 Patient encounter procedure Yeyo R SOLEDAD [facility] [place] Start: 10-07-2022 End: 10-07-2022 ambulatory Jenaro Lynch Other [employer] Other Start: 10-07-2022 Telephone encounter Jenaro Lynch [facility] [place] Start: 09-27-2022 End: 09-27-2022 ambulatory Jenaro Lynch - [facility] Facility:[facility] Start: 09-27-2022 End: 09-27-2022 ambulatory DO Jenaro Lynch Work Phone: [facility] Work Phone: Start: 09-27-2022 End: 09-27-2022 Patient encounter procedure DO Jenaro Lynch Work Phone: [facility] [place] Work Phone: Start: 09-21-2022 End: 09-21-2022 ambulatory Jenaro Lynch Other [employer] Other Start: 09-21-2022 Telephone encounter Jenaro Lynch [facility] [place] Start: 09-14-2022 End: 09-14-2022 ambulatory Jenaro Lynch Other [employer] Other Start: 09-14-2022 Telephone encounter Jenaro Lynch [facility] [place] Start: 09-02-2022 End: 09-02-2022 ambulatory Shana Ilyae Facility:[facility] Start: 09-02-2022 End: 09-02-2022 Patient encounter procedure DO Jenaro Lynch Work Phone: [facility] [place] Work Phone: Start: 08-25-2022 End: 08-25-2022 ambulatory Ton Mapus Other [employer] Other Start: 08-25-2022 Telephone encounter Doris Mapus [facility] Start: 08-22-2022 End: 08-22-2022 ambulatory Jenrao Lynch Other [employer] Other Start: 08-22-2022 Telephone encounter Jenaro Lynch [facility] [place] Start: 08-05-2022 End: 08-05-2022 ambulatory Jenaro Lynch Other [employer] Other Start: 08-05-2022 Telephone encounter Jenaro Lynch [facility] [place] Start: 08-04-2022 End: 08-04-2022 ambulatory Jenaro Jettjoe Other [employer] Other Start: 08-04-2022 Telephone encounter Jenaro Lynch [facility] [place] Start: 07-28-2022 End: 07-28-2022 ambulatory Jenarogorge Lynch Other [employer] Other Start: 07-28-2022 Telephone encounter Jenarogorge Lynch [facility] Start: 07-25-2022 End: 07-25-2022 ambulatory Jenaro Jettjoe Other [employer] Other Start: 07-25-2022 Nursing evaluation o f patient and report Jenaro Jettjoe [facility] [place] Start: 07-19-2022 End: 07-19-2022 ambulatory Jenarogorge Lynch Other [employer] Other Start: 07-19-2022 Telephone encounter Jenaro Lynch [facility] [place] Start: 07-15-2022 End: 07-15-2022 ambulatory Jenaro Lynch Other [employer] Other Start: 07-15-2022 Telephone encounter Jenaro Jettjoe [facility] [place] Start: 07-13-2022 End: 07-13-2022 ambulatory Jenarogorge Lynch Other [employer] Other Start: 07-13-2022 Nursing evaluation o f patient and report Jenaro Lynch [facility] [place] Start: 07-12-[address] Raulito Kennedy II Facility: Start: 07-05-2022 End: 07-05-2022 ambulatory Jenaro Jettjoe Other [employer] Other Start: 07-05-2022 Telephone encounter Jenaro Lynch [facility] [place] Start: 07-05-2022 Rx Renewal Jenaro Fraustojoe Work Phone: [facility] 250 DO Work Phone: Start: 07-04-2022 End: 07-04-2022 ambulatory Jenaro Lynch Other [employer] Other Start: 07-04-2022 Office outpatient vi sit 25 minutes Jenaro Lynch [facility] [place] Start: 06-30-2022 End: 06-30-2022 ambulatory Jenaro Lynch Other [employer] Other Start: 06-30-2022 Telephone encounter Jenaro Lynch [facility] [place] Start: 05-25-2022 End: 05-25-2022 ambulatory Jenaro Lynch Other [employer] Other Start: 05-25-2022 Telephone encounter Jenaro Lynch [facility] [place] Start: 04-25-2022 End: 04-25-2022 ambulatory Jenaro Lynch Other [employer] Other Start: 04-25-2022 Telephone encounter Jenaro Lynch [facility] [place] Start: 04-19-2022 End: 04-19-2022 ambulatory Jenaro Lynch Other [employer] Other Start: 04-19-2022 Telephone encounter Jenaro Lynch [facility] [place] Start: 03-22-2022 End: 03-22-2022 ambulatory Jenaro Lynch Other [employer] Other Start: 03-22-2022 Telephone encounter Jenaro Lynch [facility] [place] Start: 03-01-2022 End: 03-01-2022 ambulatory Jenaro Lynch Other [employer] Other Start: 03-01-2022 Telephone encounter Jenaro Lynch [facility] [place] Start: 02-18-2022 End: 02-18-2022 ambulatory Jenaro Fraustojoe Other [employer] Other Start: 02-18-2022 Telephone encounter Jenaro Lynch [facility] [place] Start: 02-15-2022 End: 02-15-2022 ambulatory eVrona Whaley Other [employer] Other Start: 02-15-2022 Office outpatient vi sit 25 minutes Jenaro Lynch [facility] [place] Start: 02-15-2022 Telephone encounter Veronacharlie Moenazia [facility] Start: 01-21-2022 End: 01-21-2022 ambulatory Jenaro Lynch Other [employer] Other Start: 01-21-2022 Telephone encounter Jenaro Rory [facility] [place] Start: 01-19-2022 End: 01-19-2022 ambulatory Jenaro Lynch Other [employer] Other Start: 01-19-2022 Telephone encounter Jenaro Rory [facility] [place] Start: 01-13-2022 End: 01-13-2022 ambulatory Jenaro Lynch Other [employer] Other Start: 01-13-2022 Telephone encounter Jenaro Lynch [facility] [place] Start: 12-23-2021 End: 12-23-2021 ambulatory Jenaro Lynch Other [employer] Other Start: 12-23-2021 Telephone encounter Jnearo Rory [facility] [place] Start: 11-24-2021 End: 11-24-2021 ambulatory Jenaro Lynch Other [employer] Other Start: 11-24-2021 Telephone encounter Jenaro Lynch [facility] [place] Start: 11-03-2021 Rx Renewal Jenaro Lynch Work Phone: [facility] 250 DO Work Phone: Start: 10-26-2021 Office outpatient vi sit 25 minutes Jenaro Lynch Work Phone: [facility] 250 DO Work Phone: Start: 10-25-2021 End: 10-25-2021 ambulatory Jenaro Lynch Other [employer] Other Start: 10-25-2021 Telephone [facility] Start: 10-19-2021 End: 10-19-2021 ambulatory Aziz Bakhous Other [employer] Other Start: 10-19-2021 Office outpatient vi sit 25 minutes Aziz Bakhous [facility] Start: 10-18-2021 End: 10-18-2021 ambulatory Aziz Bakhous Other [employer] Other Start: 10-18-2021 Telephone encounter Azjuan Bakhous [facility] Start: 10-12-2021 End: 10-13-2021 ambulatory DUARTE HENRY . Facility: Start: 10-08-2021 End: 10-08-2021 ambulatory Jenaro Lynch Other [employer] Other Start: 10-08-2021 Telephone encounter [facility] Start: 09-22-2021 End: 09-22-2021 ambulatory Jenaro Lynch Other [employer] Other Start: 09-22-2021 Telephone encounter Jenaro Lynch [facility] Start: 09-21-2021 End: 09-21-2021 ambulatory Jenaro Lynch Other Network18 Other Start: 09-21-2021 Telephone encounter Jenaro Lynch [facility] Start: 08-09-2021 End: 08-09-2021 ambulatory Jenaro Lynch Other Network18 Other Start: 08-09-2021 Telephone encounter Jenaro Lynch [facility] Start: 08-02-2021 End: 08-02-2021 ambulatory Jenaro Lynch Other Network18 Other Start: 08-02-2021 Telephone encounter Jenaro Lynch [facility] Start: 07-27-2021 End: 07-27-2021 ambulatory Jenaro Lynch Other Network18 Other Start: 07-27-2021 Office outpatient vi sit 25 minutes Jenaro Lynch [facility] Start: 06-23-2021 End: 06-23-2021 ambulatory Jenaro Lynch Other Network18 Other Start: 06-23-2021 Telephone encounter Jenaro Lynch [facility] Start: 06-22-2021 Rx Renewal Jenaro Lynch Work Phone: [facility] 250 DO Work Phone: Start: 05-03-2021 End: 05-03-2021 ambulatory Jenaro Lynch Other Network18 Other Start: 05-03-2021 Telephone encounter Jenaro Lynch [facility] Procedures Date Procedure Procedure Detail Performing Clinician Start: 07-12-2023 Plain chest X-ray DO Livia Lynch Work Phone: Start: 09-02-2022 MRI of head DO Jenaro shi Work Phone: Start: 06-05-2006 Total colonoscopy Jenaro Lynch Work Phone: Appendectomy Jenaro Mari Rory Work Phone: Appendectomy Yeyo SILVESTRE Bilateral Carpal Timothy uli Surgery Yeyo SILVESTRE Bilateral Eye Surgery 1 Patr genaro SILVESTRE Comment on above: bilateral cataracts with iol implants Cardiac catheterization Jose Angel charlie Guerra Rory Work Phone: cardiac stents Yeyo DELA CRUZ S Cataract extraction and insertion of intraocular lens Yeyo SILVESTRE Cataract surgery Jenarogorge Frausto joe Work Phone: Colonoscopy Yeyo SILVESTRE Decompression of med byron nerve Jenaro Lynch Work Phone: History of percutane ous transluminal coronary angioplasty History of PTCA Jenaro Lynch Work Phone: Procedure on back Jenaro Mari ramirez Work Phone: Comment on above: nerve ablation; Procedure on back Yeyo DOSHI Scrotum and testicle operation Jenarogorge Lynch Work Phone: Plan of Treatment Date Care Activity Detail Author Start: 11-15-2023 FUV, Provider: Raulito Kennedy, Status: Pen, Time: 2:40 PM FUV, Provider: Raulito Kennedy, Status: Pen, Time: 2:40 PM -Located Within [facility] 250 DO Work Phone: Start: 07-12-2023 Duplex scan of lower limb veins US venous duplex LE BI [facility] Start: 07-12-2023 US Lower extremity v ein - bilateral [facility] Start: 07-12-2023 Duplex scan veins of upper limb US venous duplex UE LT [facility] Start: 07-12-2023 US Upper extremity v ein - left [facility] Start: 02-15-2023 FUV, Provider: Dolores Velazquez, Status: Pen, Time: 10:00 AM FUV, Provider: Dolores Velazquez, Status: Pen, Time: 10:00 AM -[facility] 600 DO Work Phone: Start: 01-25-2023 STRESS NUC, Provider : CHARISSE HHVI NUCLEAR 01,[id number], Status: Pen, Time: 8:30 AM STRESS NUC, Provider: CHARISSE HHVI NUCLEAR 01,[id number], Status: Pen, Time: 8:30 AM -Located Within [facility] 600 DO Work Phone: Start: 07-12-2022 FUV, Provider: Raulito Kennedy, Status: Pen, Time: 9:20 AM FUV, Provider: Raulito Kennedy, Status: Pen, Time: 9:20 AM [facility] 250 DO Work Phone: Start: 10-26-2021 FUV, Provider: Raulito Kennedy, Status: Pen, Time: 9:30 AM FUV, Provider: Raulito Kennedy, Status: Pen, Time: 9:30 AM [facility] 250 DO Work Phone: Patient Education Dependent Edema (DC) [facility] Work Phone: Patient referral [facility] Work Phone: Immunizations Immunization Date Immunization Notes Care Provider Sachin pettit 11-13-2020 Pfizer-BioNTech COVID-19 Vacc 30 MCG/0.3ML Intramuscular Suspension Jenaro Lynch Work Phone: [facility] 10-23-2020 Pfizer-BioNTech COVID-19 Vacc 30 MCG/0.3ML Intramuscular Suspension Jenaro Lynch Work Phone: [facility] 01-14-2019 influenza, seasonal, injectable Jenaro Lynch Other [facility] [employer] Other 01-14-2019 influenza virus vaccine, unspecified formulation Yeyo SILVESTRE [facility] 04-02-2018 influenza virus vaccine, unspecified formulation Yeyo SILVESTRE [facility] 04-02-2018 influenza, injectabl e, quadrivalent, preservative free DO Jenaro Lynch Work Phone: [facility] 03-05-2018 influenza virus vaccine, unspecified formulation Jenaro Lynch Work Phone: [facility] 250 DO Work Phone: 03-05-2018 pneumococcal polysaccharide vaccine, 23 valent Jenaro Lynch Work Phone: [facility] 250 DO Work Phone: 03-07-2016 influenza virus vaccine, unspecified formulation Yeyo SILVESTRE [facility] 03-07-2016 influenza, injectabl e, quadrivalent, preservative free Jenaro Lynch Work Phone: [facility] 600 DO Work Phone: 02-22-2016 pneumococcal polysaccharide vaccine, 23 valent Jenaro Lynch Work Phone: [facility] Payers Date Payer Category Payer Self-pay [id number] 2022 Medicaid [id number] 1965 Unknown [id number] 2.16.84 0.1.063290.3.579.2.593 1965 Unknown [id number] 2.16.8 40.1.218562.3.579.2.1068 1965 Unknown [id number] 2.16. 840.1.462889.3.579.2.356 1965 Unknown [id number] 2.16. 840.1.499905.3.579.2.356 1965 Unknown [id number] 2.16. 840.1.180989.3.579.2.356 1965 Unknown [id number] 2.16.8 40.1.736362.3.579.2.727 1965 Unknown [id number] 2.16.8 40.1.921813.3.579.2.72 1965 Unknown [id number] 2.16.8 40.1.137726.3.579.2.727 1965 Unknown [id number] 2.16.8 40.1.047999.3.579.2.72 1965 Unknown [id number] 2.16.8 40.1.647187.3.579.2.727 1965 Unknown [id number] 2.16.8 40.1.911749.3.579.2.72 1965 Unknown [id number] 2.16.8 40.1.272048.3.579.2.727 1965 Unknown [id number] 2.16.8 40.1.371855.3.579.2.727 1965 Unknown [id number] 2.16.8 40.1.593331.3.579.2.727 1965 Unknown [id number] 2.16.8 40.1.969878.3.579.2.72 1965 Unknown [id number] 2.16.8 40.1.921357.3.579.2.727 1965 Unknown [id number] 2.16.8 40.1.401594.3.579.2.727 1965 Unknown [id number] 2.16.8 40.1.972448.3.579.2.727 1965 Unknown [id number] 2.16.8 40.1.805698.3.579.2.727 1965 Unknown [id number] 2.16.8 40.1.271001.3.579.2.727 1959 Unknown [id number] 2.1 6.840.1.118928.19 Unknown [employer] Unknown [id number] 2.16.8 40.1.358933.3.579.2.531 Unknown [id number] 2.16.8 40.1.028333.3.579.2.531 Unknown [id number] 2.16.8 40.1.510234.3.579.2.531 Unknown [id number] 2.16.8 40.1.089836.3.579.2.531 Social History Date Type Detail Facility Caffeine use Caffeine use [facility] [employer] Other Comment on above: 2 cups coffee, 4-6 c ups tea daily, occaional soda; qauit 07/2020; Sex Assigned At [facility] Start: 07-14-2020 End: 07-12-2023 Tobacco smoking status NHIS Smoker (finding) [facility] Start: 1965 Sex Assigned At Male F [facility] Start: 11-23-2022 End: 06-02-2023 Tobacco smoking status Heavy tobacco smoker (finding) [facility] Tobacco smoking status Never [facility] Medical Equipment Procedure Code Equipment Code Equipment Origin al Text Equipment Identifier Dates Aortogram, abdominal, with bilateral lower extremity runoff IR STENT SMART 10 X 80 120 CM FDA Start: 09-27-2018 Aortogram, abdominal, with bilateral lower extremity runoff IR STENT SMART 10 X 80 120 CM FDA Start: 09-27-2018 Start: 12-16-2013 Bare-metal bilia ry stentMultiple peripheral artery stent, bare-metal ([id number] [facility] Start: 07-14-2020 Functional Status Date Assessment Result Facility 06-02-2023 Functional Status N/A [facility] 02-14-2023 Functional Status N/A [facility] 01-30-2023 Functional Status N/A [facility] 11-23-2022 Functional Status N/A [facility] [place] Clinical Notes 06-23-2021 to 06-26-2023 Note Date & Type Note Facility 06-26-2023 Evaluation note Encounter Date Diagnosis Assessment Notes Jun, Hyperlipidemia (ICD-10 - E78.5) Network18 Other [id number] Hospital Discharge instructions Patient Education 06/02/2023 11:57:43 [...] urethra. Follow these instructions at home: Take fwsx-jnz-rlmtvka and prescription medicines only as told by [...] provider. Document Revised: 12/08/2021 Document Reviewed: 12/08/2021 [employer] Patient Education 2022 [employer]. Follow Up Care 06/01/2023 14:05:36 With:SOLEDAD HERRERA, Yeyo Blum, URL Address: [address] [place] [address]- When: Unknown [facility] [place] 12-12-2023 Evaluation note* Encounter Date Diagnosis Assessment Notes Treatment Notes Treatment Clinical Notes May, 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) [facility] Other 11-24-2023 Evaluation note* Encounter Date Diagnosis Assessment Notes Treatment Notes Treatment Clinical Notes Apr, Diabetic nephropathy (ICD-10 - E11.21) [facility] Other 11-07-2023 Evaluation note* Encounter Date Diagnosis Assessment Notes Treatment Notes Treatment Clinical Notes Apr, Left arm pain (ICD-10 - M79.602) [facility] Other 11-02-2023 Evaluation note* Encounter Date Diagnosis Assessment Notes Treatment Notes Treatment Clinical Notes Apr, Encounter for pre-operative examination (ICD-10 - Z01.818) I did review pt's cardiac testing, lab work, as well as his cardiac clearance. Pt is scheduled with Dr. Silvestre for a cystoscopy, and will have sedation [...] is to continue to follow with Dr. Silvestre, and to have his surgery as scheduled. 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 He is to continue on the above regimen and monitor diet. 11 Mar, 2023 Sepsis (ICD-10 - A41.9) Patient is to [...] No records available as of yet from [facility]. He was found to have developed the UTI likely secondary to not having had the burt catheter in place as he was trying to see how he does without it prior to the TURP procedure planned for 04/[address] Silvestre due to the polyps in his prostate. Mar, Hypertensive chronic kidney disease with stage 1 through stage 4 chronic kidney disease, or unspecified chronic kidney disease (ICD-10 - I12.9) Due to blood pressures being more on the hypotensive side, was encouraged to cut his valsartan-hctz in half if possible. He is to continue to montior this at home. Network18 Other 10-09-2023 Note [id number]14[facility]2023 [id number]:127[facility]09-12-2023 Note [id number]:127[facility] 02-14-2023 Hospital Discharge instructions Patient Education 02/14/2023 [...] including vitamins, herbs, eye drops, creams, and vrsa-zhw-fjspimr medicines. Any problems you or family members [...] provider tells you to take them. Taking fqny-cnv-ipgjwyr medicines, vitamins, herbs, and supplements. Surgery safety [...] provider. Document Revised: 02/15/2022 Document Reviewed: 02/15/2022 [employer] Patient Education 2022 [employer]. [facility]08-28-2023 Hospital Discharge instructions Patient Education 01/30/2023 11:22:32 [...] including vitamins, herbs, eye drops, creams, and uyyq-rxo-kjevaaj medicines. ?Whether you are or may be [...] provider. Document Revised: 02/02/2022 Document Reviewed: 12/25/2020 [employer] Patient Education 2022 [employer]. 01/30/2023 11:22:30 Cystoscopy Cystoscopy Cystoscopy is a [...] including vitamins, herbs, eye drops, creams, and kajt-apc-ctbwzsm medicines. Any problems you or family members [...] provider tells you to take them. Taking aevw-jkf-crbxrvl medicines, vitamins, herbs, and supplements. Tests You [...] Follow these instructions at home: Medicines Take twwy-sjx-ltwofwj and prescription medicines only as told by [...] provider. Document Revised: 02/02/2022 Document Reviewed: 01/01/2021 [employer] Patient Education 2022 [employer]. Follow Up Care 11/23/2022 13:02:56 With:SOLEDAD HERRERA, Yeyo Blum, URL Address: [facility] [address], [place] [phone] When: Unknown Comments:sched cysto/uros [facility] [place] 08-15-2023 Evaluation note* Encounter Date Diagnosis Assessment Notes Treatment Notes Treatment Clinical Notes Jan, Diabetic nephropathy (ICD-10 - E11.21) Network[facility] Other 06-29-2023 Evaluation note* Encounter Date Diagnosis [...] is to continue to follow with Dr. Silvestre. Nov, Hyperlipidemia (ICD-10 - E78.5) Pt is [...] reviewed. 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 Network18 Other 06-21-2023 Hospital Discharge instructions Patient Education [...] provider. Document Revised: 08/11/2021 Document Reviewed: 05/07/2021 [employer] Patient Education 2021 [employer]. Follow Up Care 09/14/2022 14:23:26 With:SOLEDAD HERRERAYeyo, URL Address: [facility] [address] [place] [address]- When: Unknown [facility] [place] 05-05-2023 Evaluation note* Encounter Date Diagnosis Assessment Notes Treatment Notes Treatment Clinical Notes October, Erectile dysfunction, unspecified erectile dysfunction type (ICD-10 - N52.9) Network[facility] Other 04-19-2023 Evaluation note* Encounter Date Diagnosis Assessment Notes Treatment Notes Treatment Clinical Notes Sep, 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) [facility] Other 04-12-2023 Evaluation note* Encounter Date Diagnosis Assessment Notes Treatment Notes Treatment Clinical Notes Sep, 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) Sep, 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) Network18 Other 03-20-2023 Evaluation note* Encounter Date Diagnosis Assessment Notes Treatment Notes Treatment Clinical Notes Aug, Diabetic nephropathy (ICD-10 - E11.21) Network18 Other 03-03-2023 Evaluation note* Encounter Date Diagnosis Assessment Notes Treatment Notes Treatment Clinical Notes Aug, Pain in right leg (ICD-10 - M79.604) Network[facility] Other 03-02-2023 Evaluation note* Encounter Date Diagnosis Assessment Notes Treatment Notes Treatment Clinical Notes Aug, Pain in right leg (ICD-10 - M79.604) Network18 Other 02-20-2023 Evaluation note* Encounter Date Diagnosis Assessment Notes Treatment Notes Treatment Clinical Notes Jul, Intractable episodic headache, unspecified headache type (ICD-10 - R51.9) Network18 Other 02-14-2023 Evaluation note* Encounter Date Diagnosis Assessment Notes Treatment Notes Treatment Clinical Notes Jul, Acute intractable headache, unspecified headache type (ICD-10 - R51.9) Network[facility] Other 02-08-2023 Evaluation note* Encounter Date Diagnosis Assessment Notes Treatment Notes Treatment Clinical Notes Jul, Headache (ICD-10 - R51.9) Network18 Other 01-30-2023 Evaluation note* Encounter Date Diagnosis [...] medication and we will continue to monitor. Network18 Other 12-21-2022 Evaluation note* Encounter Date Diagnosis Assessment Notes Treatment Notes Treatment Clinical Notes May, Diabetic nephropathy (ICD-10 - E11.21) [facility] Other 11-21-2022 Evaluation note* Encounter Date Diagnosis Assessment Notes Treatment Notes Treatment Clinical Notes Apr, Diabetic nephropathy (ICD-10 - E11.21) [facility] Other 11-15-2022 Evaluation note* Encounter Date Diagnosis Assessment Notes Treatment Notes Treatment Clinical Notes Apr, Pain in right leg (ICD-10 - M79.604) [facility] Other 10-18-2022 Evaluation note* Encounter Date Diagnosis Assessment Notes Treatment Notes Treatment Clinical Notes Mar, Diabetic nephropathy (ICD-10 - E11.21) [facility] Other 09-13-2022 Evaluation note* Encounter Date Diagnosis Assessment Notes Treatment Notes Treatment Clinical Notes Feb, Hypertensive chronic kidney disease with stage 1 through stage 4 chronic kidney disease, or unspecified chronic kidney disease (ICD-10 - I12.9) [facility] Other 09-13-2022 Evaluation note* Encounter Date Diagnosis [...] scheduled. 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 Patient is to continue following with the CC and Dr. Kennedy. Feb, RLS (restless legs syndrome) (ICD-10 - [...] is to continue to follow with the air quality technician as scheduled. Feb, Pain in right leg (ICD-10 - M79.604) Refill provided of the above. Feb, 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) Fasting glucose reading of 185, and in house A1C was greater than 14.0. Therefore we will refer to Akindra Barnes. Feb, Neoplasm of uncertai n behavior of skin [...] Noted upon review of blood work results. Network18 Other 08-19-2022 Evaluation note* Encounter Date Diagnosis Assessment Notes Treatment Notes Treatment Clinical Notes Jan, Diabetic nephropathy (ICD-10 - E11.21) Network[facility] Other 08-17-2022 Evaluation note* Encounter Date Diagnosis Assessment Notes Treatment Notes Treatment Clinical Notes Jan, Diabetic nephropathy (ICD-10 - E11.21) [facility] Other 07-21-2022 Evaluation note* Encounter Date Diagnosis Assessment Notes Treatment Notes Treatment Clinical Notes Dec, Diabetic nephropathy (ICD-10 - E11.21) [facility] Other 06-22-2022 Evaluation note* Encounter Date Diagnosis Assessment Notes Treatment Notes Treatment Clinical Notes Nov, Diabetic nephropathy (ICD-10 - E11.21) Network[facility] Other 05-23-2022 Evaluation note* Encounter Date Diagnosis Assessment Notes Treatment Notes Treatment Clinical Notes October, Diabetic nephropathy (ICD-10 - E11.21) [facility] Other 05-17-2022 Evaluation note* Encounter Date Diagnosis [...] E11.59) October, 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 Kennedy. For this October, Other He did quit smoking since July 2020 Network18 Other 05-16-2022 Evaluation note* Encounter Date Diagnosis Assessment Notes Treatment Notes Treatment Clinical Notes October, Hypertensive chronic kidney disease with stage 1 through stage 4 chronic kidney disease, or unspecified chronic kidney disease (ICD-10 - I12.9) October, Stage 3 chronic kidney disease, unspecified whether stage 3a or 3b CKD (ICD-10 - N18.30) Network18 Other 05-06-2022 Evaluation note* Encounter Date Diagnosis Assessment Notes Treatment Notes Treatment Clinical Notes October, Pain in right leg (ICD-10 - M79.604) October, Pain in left leg (ICD-10 - M79.605) Network18 Other 04-20-2022 Evaluation note* Encounter Date Diagnosis Assessment Notes Treatment Notes Treatment Clinical Notes Sep, Diabetic nephropathy (ICD-10 - E11.21) [facility] Other 04-19-2022 Evaluation note* Encounter Date Diagnosis Assessment Notes Treatment Notes Treatment Clinical Notes Sep, Anxiety (ICD-10 - F41.9) Sep, Hypertensive chronic kidney disease with stage 1 through stage 4 chronic kidney disease, or unspecified chronic kidney disease (ICD-10 - I12.9) Network18 Other 03-07-2022 Evaluation note* Encounter Date Diagnosis Assessment Notes Treatment Notes Treatment Clinical Notes Aug, Anxiety (ICD-10 - F41.9) [facility] Other 02-22-2022 Evaluation note* Encounter Date Diagnosis [...] 12 pound weight loss from last visit. Network18 Other [id number] Evaluation note* Encounter Date Diagnosis Assessment Notes Treatment Notes Treatment Clinical Notes Jun, Diabetic nephropathy (ICD-10 - E11.21) Network18 Other Evaluation + Plan note Future Appointments Appointment Date:12/21/2022 11:00:00 AM Scheduled Provider: Location:[facility] Appointment Type:URO Nurse Visit Appointment Date:01/30/2023 10:30:00 AM Scheduled Provider:Yeyo SILVESTRE MD Location:[facility] [place] Appointment Type:URO Office Visit [facility] Evaluation + Plan note Future Appointments Appointment Date:01/30/2023 10:15:00 AM Scheduled Provider:Yeyo SILVESTRE MD Location:[facility] Appointment Type:URO Office Visit [facility] Evaluation + Plan note Future Appointments Appointment Date:02/01/2023 10:00:00 AM Scheduled Provider: Location:[facility] Appointment Type:Urology CALL PAT FT Appointment Date:02/08/2023 09:00:00 AM Scheduled Provider: Location:[facility] Appointment Type:Urology FT Appointment Date:02/14/2023 09:15:00 AM Scheduled Provider: Location:[facility] Appointment Type:Urology FT [facility] evaluation + Plan note Future Appointments Appointment Date:02/14/2023 09:15:00 AM Scheduled Provider: Location:[facility] Appointment Date:03/20/2023 08:45:00 AM Scheduled Provider: Location:[facility] Appointment Type:URO Nurse Visit Appointment Date:04/05/2023 08:00:00 AM Scheduled Provider:Yeyo SILVESTRE MD Location:[facility] Future App[facility]ments Appointment Date:05/03/2023 08:45:00 AM Scheduled Provider:Yeyo SILVESTRE MD Location:[facility] Appointment Type:URO Office Visit [facility] Evaluation + Plan note Future Appointments Appointment Date:07/03/2023 10:15:00 AM Scheduled Provider:Yeyo SILVESTRE MD [facility] Appointment Type:URO Office Visit [facility] evaluation noteNo [facility] [employer] Other Evaluation noteNo assessment information available [facility] Work Phone: History general Narrative - Reported* Type Description Date [...] Heart stent placed by Dr. Bowie at [facility] 07/26/15 Surgical History Left knee arthroscopy 11/2015 Surgical History carpal tunnel release, right an d left 08/2016 Surgical History hydrocele repair 08/2016 Surgical History cardiac cath [facility] 04/02/18 Surgical History Lt LE iliac DSA, angioplasty & stenting 09/27/2018 Surgical History Left Angiogram with one stent - Dr. Boss 07/2020 Hospitalization History Deep Depression, Anxiety; [facility] 11-11-10 Hospitalization History [facility] hypoxemia and hyper capnic respirtory failure 11/11/16 Hospitalization History chest pain [facility] 04/02/18 [employer]time [facility] Medminder Other History of Present illness NarrativeReturns in [...] impact on blood pressure and diabetes were reviewed-Located Within [facility] 250 DO Work Phone: History of Present [...] medication regimen. He denies medication side effects. [facility] 600 DO Work Phone: History of Present [...] medication regimen. He denies medication side effects. [facility] 250 DO Work Phone: Hospital course Narrative No data available for this section [facility] [place] [employer] [facility] Discharge instructions No data available for this section [facility] Revel Touch Progress note No data available for this section [facility] Screamin Daily Deals Chief Complaint SOLOMON FELDMAN is being seen [...] . There is evidence of post-renalAKI with September creatinine of 1.8. He currently has a Burt catheter. Reportedly will be seeing urology in [...] ischemic evaluation. No unstable symptoms, has indwelling burt with unclear Urologic procedures planned and most [...] adache, unspecified headache type (R51.9) Referral Organization [facility] Referring Provider First Name Jenaro Referring Provider Last Name Rory Referring Provider Specialty Family [place] Referred Organization [facility] Referred Provider Lyssa Sharpe Referred Address [address], [place],[address] Referred Provider Specialty Neurology Referral [facility]ine [facility] 10[facility]19[facility]08 AM >Received today. [facility] request us to fill out their form and attach to Referral and send it to them and they will call patient to schedule. Referral was sent P2P and fax insurance card since it would not let me attach to referral [facility] 07/28/2022 10:23:53 AM >Spoke with aMrilynn at [facility] and patient has been scheduled and cancelled the appt for 07/26/22 [facility] 07/28/2022 10:27:39 AM >Telephone encounter was sent Reason 03/31/22 @ 2:45pm consult and treat Diagnosis 1 Type 2 diabetes bobby itus with circulatory disorder (E11.59) [facility] Referring Provider First Name Jenaro Referring Provider Last Name Rory Referring Provider Specialty [facility] [place] Referred Organization [facility] Referred Provider Doris Barnes Referred Address [address],[place],[address] Referred Provider Specialty Nurse Jono calderon Referral Priority Routine Referral Appointment Date 2022-03-31 [facility] 02:28:10 PM >Received today and sent P2P [facility] 02/16/2022 07:50:21 AM >Patient has been scheduled [...] this at the same time, * Needs [id number] to sendRefills-bpk to send rxrefil - bpk to send rxLAB ORDERSRENAL 6 month Follow uprefillrefillclinicalRefills-bpk to send rxlyrica rx printedDM ReferralClinicaldiscuss PSA resultsclinicalClinicalRefills-bpk to send rxrefillrefill- BPK to send rxRefills-bpk to send rxClinicalheadachesClinicaltoradol shottoradol shotclinicaltoradol per bpkNeurology Referral UpdateRefills-bpk to send rxrefillRefillDM Referral UpdaterefillRefillsRefillsTKM CancelledMED CHECKbpk to send [id number] check/hospital f/u-bellevueRefillsR/S surgical clearanceclinicalrefillrefillrefillClinical Care Teams (unrecognized sec tion and content) Team Status: Active Member Role Status Elda Lynch DO Primary Care Provider Active Team Status: Inactive Member Role Status Dates Jenaro Lynch DO Primary Care Provider Active Shana Mclaughlin PA-C Attending Provider Active Team Status: Inactive Member Role Status Dates Jenaro Lynch DO Primary Care Provider Active Jenaro Lynch DO [facility] Attending Provider Active Team Status: Inactive Member Role Status Dates Jenaro Lynch DO Primary Care Provider Active Sta rt: July 12, 2023 End: July 12, 2023 Nancy Chaudhari MD Emergency Provider Active St art: July [...] content) DATE CREATED AUTHOR 11/11/2022 [facility] DATE CREATED AUTHOR 'S ORGANIZ ATION 01/27/2023 [facility] DATE CREATED AUTHOR AUTHOR'S ORGANIZ ATION 02/16/2023 [facility] DATE CREATED AUTHOR AUTHOR'S ORGANIZ ATION 02/16/2023 [employer] DATE CREATED AUTHOR AUTHOR'S ORGANIZ ATION 07/14/2023 [facility] DATE CREATED AUTHOR AUTHOR'S ORGANIZ ATION 08/08/2023 [facility] FOR RECORDS PERTAINING TO PATIENTS WHO [...] BE BASED ON THE PRIMARY CLINICAL RECORDS. [facility] [employer] ([email or web address]) [facility]. provides no warranty or guarantee of the accuracy or completeness of information in this document.
[2023-08-10 09:13] LABS: Glucometer 228 mg/dL (74-106)
[2023-08-10 09:28] VITALS: BMI 28.6
[2023-08-10] MEDS: LACTATED RINGER'S SOLUTION 1,000 ML 50 ML IV (09:36)
[2023-08-10] MEDS: VANCOMYCIN HCL 1,000 MG in 0.9 % SODIUM CHLORIDE 250 ML 250 MG IV (10:17)
[2023-08-10 11:11] VITALS: BP 100/40; PULSE 76; RESP 16; TEMP 36.3; O2SAT 97
[2023-08-10 11:26] VITALS: BP 111/63; PULSE 97; RESP 16; O2SAT 95
[2023-08-10 11:29] LABS: Glucometer 196 mg/dL (74-106)
[2023-08-10] MEDS: OXYCODONE HCL 15 MG TABLET PO (11:43)
[2023-08-10 11:56] VITALS: BP 95/54; PULSE 75; RESP 16; O2SAT 95
--- NOTE | 2023-08-10 12:23 | P.ORON_ITS ---
Brief Operative Note Date of procedure: 08/10/23 Pre-op diagnosis: incision and drainage right foot abscess Post-op diagnosis: same as pre-op Procedure: PROCEDURES PERFORMED: incision and drainage of right foot abscess and application of short leg splint INTRAOPERATIVE FINDINGS: two wounds on the plantar right foot with the central wound measuring 0.3 x 0.3 cm and plantar medial wound measuring 0.2 x 0.2 cm. 1 mL of purulent drainage noted around the flexor tendons. Wounds communicated beneath the fascia. Superficial skin and soft tissue necrosis. No bone exposure PROCEDURE IN DETAIL: Patient was identified in pre op and consent was reviewed. Correct side and site were identified and marked. Pre-op antibiotics were started. Patient was brought to OR suite and place on table in a supine position. General anesthesia was administered. Operative extremity was prepped and draped in usual sterile fashion. Formal time-out was performed. Utilizing a scalpel, the two wounds were excised sharply and a lazy S incision was placed on the plantar skin in line with the skin wrinkles and arch. Combination sharp and blunt dissection beneath the fascia was performed excising all questionable or necrotic tissue. There is 1 mL of purulence noted around the flexor tendons which was evacuated and the tendons were excised.. Blunt dissection with a hemostat was performed to ensure no additional purulence or necrotic tissue was present. After full excision the surgical site was irrigated with 3 L of copious sterile saline. Gloves were changed and all dirty instruments were passed off the sterile field. Specimen was obtained with clean instruments from plantar central foot. Hemostasis was controlled with pressure Postoperative wound measurements: central 0.4 x0.4 cm and medial 0.4 x 0.4 cm. the wounds were packed with sterile gauze packing A dry sterile dressing consisting of Adaptic on the incisions followed by 4 x 4 gauze, ABDs, and Kerlix were applied. Multiple layers of cast padding were then applied to ensure all bony prominences were well-padded. A plaster posterior splint was then applied which was held in place by Omero wraps. Capillary refill time to all digits was evaluated and had appropriate response. Patient tolerated the procedure and anesthesia well transferred to the recovery room with vital signs stable and brisk capillary refill to the toes. POSTOPERATIVE PLAN: Discharge home under family's care Post op instructions provided verbally and written prescription for Hanson 5/325 #30 was placed in chart and prescription for Zyvox is awaiting pick and shovel man at the pharmacy NWB operative foot/ankle Follow-up in 1 week for dressing change and application of wound VAC if obtained Anesthesia: MAC Surgeon: Fredy Elias [employer] Teacher: Franklin Trejo Estimated blood loss (mL): 25 Pathology: other (soft tissue from plantar foot) Condition: stable Disposition: PACU
== END 2023-08-10 12:12 | disposition home or self-care (01) ==
PROVIDERS: PCP Family Medicine; Visit Provider Podiatrist Foot & Ankle Surgery
PROC: (CPT 1470; principal; 2023-08-10 10:00)
DX: L02.611 Cutaneous abscess of right foot (principal); S91.331A Puncture wound without foreign body, right foot, initial encounter; E11.621 Type 2 diabetes mellitus with foot ulcer; Z79.84 Long term (current) use of oral hypoglycemic drugs; Z79.85 Long-term (current) use of injectable non-insulin antidiabetic drugs; Z79.82 Long term (current) use of aspirin; Z79.899 Other long term (current) drug therapy; J44.9 Chronic obstructive pulmonary disease, unspecified; E11.40 Type 2 diabetes mellitus with diabetic neuropathy, unspecified; F17.210 Nicotine dependence, cigarettes, uncomplicated; I50.42 Chronic combined systolic (congestive) and diastolic (congestive) heart failure; Z86.73 Personal history of transient ischemic attack (TIA), and cerebral infarction without residual deficits; I10 Essential (primary) hypertension; K21.9 Gastro-esophageal reflux disease without esophagitis; I73.9 Peripheral vascular disease, unspecified; L97.415 Non-pressure chronic ulcer of right heel and midfoot with muscle involvement without evidence of necrosis
CPT/HCPCS: 28002; 36415; 82948; 87070; 87102; 87116; 87150; 87186; 87205; 87206; 99999; J1094; J2704; J3370

== ENCOUNTER 2023-08-14 13:27 | Outpatient (OUT) | payer OTHER, SELFPAY ==
--- OUTSIDE RECORDS SUMMARY | 2023-08-14 13:52 | XMS_ITS | CCD ---
Author Name Unknown Address [address] [place] [address] Organization [facility] Care Team Providers Care Bark Scaler Name Role Phone Jenaro Lynch Unavailable Unavailable Unavailable Jenaro Lynch Unavailable Amina Fagan Unavailable Verona Whaley Unavailable Doris Barnes Unavailable DO Jenaro Lynch Primary Care Provider [phone] JERARDO Mclaughlin Attending Provider DO Jenaro Lynch Attending Provider ELAINE .DUARTE Attending Unavailable ELAINE Hernandez DUARTE [...] Jenaro Lynch Primary Care Provider MD Nancy Chaudhari Emergency Provider [phone] SILVESTRE, Yeyo R Attending Unavailable SILVESTRE, Yeyo [...] Eruption of skin (disorder) [facility] (17 sources) Penicillins; 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: [Penicillins] Allergy to drug (finding) 07-14-19 Anaphylactoid reaction (disorder) [facility] (20 sources) Acetaminophen / oxyCODONE Drug Allergy vomiting [facility] Other (20 sources) tamsulosin Drug Allergy 07-14-19 hives [facility] (20 sources) PENICIILIN Propensity to adverse reactions SWELLING OF AIRWAY [facility] Other (3 sources) Acetaminophen; 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: [acetaminophen] Drug Allergy 07-14-19 Vomiting [facility] (4 sources) oxyCODONE; 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: [Oxycodone] Drug Allergy 02-08-20 Vomiting [facility] (1 source) Penicillins Drug allergy (disorder) 09-23-19 14 [facility] Repository (9 sources) Penicillin G; 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: [penicillin G benzathine] Drug Allergy [facility] (8 sources) Penicillin Drug Allergy anaphylaxis [employer] Other (1 source) Penicillins Drug allergy (disorder) 07-31-19 24 [facility] Repository (1 source) tamsulosin Drug Allergy 07-31-19 [facility] Repository Medications Current Medications Medication Drug Class(es) [...] 12:00am July 14, 2020 11:39am Start: 10-10-2014 Cresson 325 mg-5 mg oral tablet 1 tab(s), [...] syringe (1 source) Start: 07-12-2023 Fremanezumab-V frm (navabiovy Autoinjector) 225 mg/1.5 mL auto-injector Active 225 [...] Start: 02-14-2023 take 1 capsule by mo [facility] twice daily tamsulosin 0.4 mg Cap 0.4 mg = 1 cap(s), Oral, BID, # 60 cap(s), Refills(s) 3, Pharmacy: [facility]/pharmacy #[id number], 182, cm, 02/14/23 8:58:00 EDT, Height/Length Dosing, 94, kg, 01/30/23 10:24:00 EDT, Weight Dosing Start Date: 02/14/23 Status: Ordered take 1 capsule by mo [facility] once daily Tamsulosin HCl - 0.4 MG Oral Capsule TAKE 1 CAPSULE Daily Quantity: 0 Refills: 0 Ordered: 15-Feb-2023 DO [facility] (20 sources) Start: 01-27-2014 Start: 01-27-2014 [facility] Unit as d irected Use as directed. Jan, Active Tiotropium Merrill (Spiriva With Handihaler) 18 mcg capsule, w/inhalation device (1 source) Start: 07-12-2023 take 1 capsule by inhalation once daily Tiotropium Merrill (Spiriva With Handihaler) 18 mcg capsule, w/inhalation [...] Ordered Start: 07-04-2022 take 1 tablet by [facility] every twelve hours tiZANidine HCl 4 MG 1 tablet as needed Orally Twice a day Jun, Active take 2 tablets by [facility] at bedtime tiZANidine HCl - 4 [...] procedure, # 2 cap(s), Refills(s) 0, Pharmacy: [facility]/pharmacy #[id number], 182, cm, 01/30/23 10:24:00 EDT, Height/Length [...] take 1 tablet by mouth once daily Olmesartan-Lothian chlorothiazide (Benicar Hct) 40-12.5 mg Tablet Discontinued [...] [Coronary atherosclerosis of unspecified type of vessel, levelock or graft] Onset: 2 Resolved: 2 Chronic [...] sources) Long-term current use of insulin; 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: [jail (current) use of insulin] Episodic Other and [...] duplex LE BIon US venous duplex LE [place] [address] Ultrasound Report Signed Patient: Solomon Feldman SR MR#: [id number] : 1965 Acct:[id number] Age/Sex: 57 / M ADM Date: 07/12/23 Loc: ER Room: Type: [facility] ER Attending Dr: Ordering Provider: Nancy Chaudhari [...] Howard Boss MD07/13/2023 11:56 AM Dictation Location: [place] [address] Tech: Nancy Pantoja Transcribed By: BOB 07/13/23 115 Dictated By: Howard Boss MD 07/13/23 115 Signed By: 07/13/23 115 [facility] US venous duplex UE LTon US venous duplex UE LT [facility] [place] [address] Ultrasound Report Signed Patient: Solomon Feldman SR MR#: [id number] : 1965 Acct:[id number] Age/Sex: 57 / M ADM Date: 07/12/23 Loc: ER Room: Type: [facility] ER Attending Dr: Ordering Provider: Nancy Chaudhari [...] Howard Boss MD07/13/2023 11:56 AM Dictation Location: [place] [address] Tech: Nancy Pantoja Transcribed By: PWS 07/13/23 1156 Dictated By: Howard Boss MD 07/13/23 1155 Signed By: 07/13/23 1156 Normal [facility] Activated partial thrombopla stin time (aPTT) in platelet poor plasma by coagulation aOrdered By: Nancy Chaudhari on 07-12-2023 aPTT Coag (PPP) [Time] 29.4 s 25.1-36.5 [facility] Comment on above: A hematocrit value g reater than 55% may lead to inaccurate results in coagulation testing. Patients having hematocrit values >55% require a special collection tube for coagulation studies. Please contact the laboratory at [phone] for redraw instructions. Alanine aminotransferase [En zymatic activity/volume] in Serum or PlasmaOrdered By: Nancy Chaudhari on 07-12-2023 ALT [Catalytic activity/Vol] 9 U/L 7-52 [facility] Albumin [Mass/volume] in Ser um or Plasma by Bromocresol green (BCG) dye binding methoOrdered By: Nancy Chaudhari on 07-12-2023 Albumin BCG dye [Mass/Vol] 3.9 g/dL 3.5-5.7 [facility] Alkaline phosphatase [Enzyma tic activity/volume] in Serum or PlasmaOrdered By: Nancy Chaudhari on 07-12-2023 ALP [Catalytic activity/Vol] 106 U/L 34-104 [facility] Aspartate aminotransferase [ Enzymatic activity/volume] in Serum or PlasmaOrdered By: Nancy Chaudhari on 07-12-2023 AST [Catalytic activity/Vol] 8 U/L 13-39 [facility] B-Type Natriuretic Peptideon 07-12-2023 Natriuretic peptide B (Bld) [Mass/Vol] 34.0 pg/mL Normal 5-100 [facility] Comment on above: Result Comment: PERF ORMED BY: [facility] [address] [place] [address] PATHOLOGIST SEWING MACHINE ASSEMBLER CLIFFORD LOBATO M.D. Performed By: #### B AQUATICS COORDINATOR, CMP, HS TROP, CK, PTT, CBC, PT ####[facility] [place] [address] [facility] Basophils Auto (Bld) [#/Vol] Ordered By: Nancy Chaudhari on 07-12-2023 Basophils (Bld) [#/Vol] 0.1 10*3/uL 0.0-0.2 [facility] Basophils/100 WBC Auto (Bld) Ordered By: Nancy Chaudhari on 07-12-2023 Basophils/100 WBC (Bld) 1.1 % . [facility] Bilirubin.total [Mass/volume ] in Serum or PlasmaOrdered By: Nancy Chaudhari on 07-12-2023 Bilirubin [Mass/Vol] 0.4 mg/dL 0.3-1.0 [facility] Calcium [Mass/volume] in Ser um or PlasmaOrdered By: Nancy Chaudhari on 07-12-2023 Calcium [Mass/Vol] 8.5 mg/dL 8.6-10.3 [facility] Carbon dioxide, total [Moles /volume] in Serum or PlasmaOrdered By: Nancy Chaudhari on 07-12-2023 CO2 [Moles/Vol] 24.5 mmol/L 21.0-31.0 [facility] Chloride [Moles/volume] in S ilia or PlasmaOrdered By: Nancy Chaudhari on 07-12-2023 Chloride [Moles/Vol] 102 mmol/L 98-107 [facility] Complete Blood Count Auto Di ffon 07-12-2023 Basophils (Bld) [#/Vol] 0.1 10*3/uL Normal 0.0-0.2 [facility] Comment on above: Result Comment: PERF ORMED BY: [facility] [address] [place] [address] PATHOLOGIST SEWING MACHINE ASSEMBLER CLIFFORD LOBATO M.D. Performed By: #### B AQUATICS COORDINATOR, CMP, HS TROP, CK, PTT, CBC, PT ####[facility] [id number] Basophils/100 WBC (Bld) 1.1 % Normal . [facility] Comment on above: Performed By: #### B AQUATICS COORDINATOR, CMP, HS TROP, CK, PTT, CBC, PT ####[facility] [id number] [address] Eosinophils (Bld) [#/Vol] 0.3 10*3/uL Normal 0.0-0.45 [facility] Comment on above: Performed By: #### B AQUATICS COORDINATOR, CMP, HS TROP, CK, PTT, CBC, PT ####[address] Eosinophils/100 WBC (Bld) 3.3 % Normal . [facility] Comment on above: Performed By: #### B AQUATICS COORDINATOR, CMP, HS TROP, CK, PTT, CBC, PT ####[address] Erythrocyte distribution width (RBC) [Ratio] 17.1 % High 12.0-14.8 [facility] Comment on above: Performed By: #### B AQUATICS COORDINATOR, CMP, HS TROP, CK, PTT, CBC, PT ####[address] Hematocrit (Bld) [Volume fraction] 32.7 % Low 38.8-50.0 [facility] Comment on above: Performed By: #### B AQUATICS COORDINATOR, CMP, HS TROP, CK, PTT, CBC, PT ####[address] Hemoglobin (Bld) [Mass/Vol] 10.6 g/dL Low 13.0-17.0 [facility] Comment on above: Performed By: #### B AQUATICS COORDINATOR, CMP, HS TROP, CK, PTT, CBC, PT ####[address] Lymphocytes (Bld) [#/Vol] 1.9 10*3/uL Normal 1.00-4.8 [facility] Comment on above: Performed By: #### B AQUATICS COORDINATOR, CMP, HS TROP, CK, PTT, CBC, PT ####[address] Lymphocytes/100 WBC (Bld) 20.0 % Normal . [facility] Comment on above: Performed By: #### B AQUATICS COORDINATOR, CMP, HS TROP, CK, PTT, CBC, PT ####[address] MCH (RBC) [Entitic mass] 22.8 pg Low 27.5-35.2 [facility] Comment on above: Performed By: #### B AQUATICS COORDINATOR, CMP, HS TROP, CK, PTT, CBC, PT ####[address] MCV (RBC) [Entitic vol] 70.6 fL Low 83.5-101 [facility] Comment on above: Performed By: #### B AQUATICS COORDINATOR, CMP, HS TROP, CK, PTT, CBC, PT ####[address] Mean Corpuscular HGB Conc 32.4 g/dL Low 32.5-35.6 [facility] Comment on above: Performed By: #### B AQUATICS COORDINATOR, CMP, HS TROP, CK, PTT, CBC, PT ####[address] Monocytes (Bld) [#/Vol] 1.0 10*3/uL High 0.0-0.8 [facility] Comment on above: Performed By: #### B AQUATICS COORDINATOR, CMP, HS TROP, CK, PTT, CBC, PT ####[address] Monocytes/100 WBC (Bld) 18.12 % Normal 0.00-20.00 [facility] Comment on above: Performed By: #### B AQUATICS COORDINATOR, CMP, HS TROP, CK, PTT, CBC, PT ####[address] Monocytes/100 WBC (Bld) 10.2 % Normal . [facility] Comment on above: Performed By: #### B AQUATICS COORDINATOR, CMP, HS TROP, CK, PTT, CBC, PT ####[address] Neutrophils (Bld) [#/Vol] 6.2 10*3/uL Normal 1.8-7.7 [facility] Comment on above: Performed By: #### B AQUATICS COORDINATOR, CMP, HS TROP, CK, PTT, CBC, PT ####[address] Neutrophils/100 WBC (Bld) 65.4 % Normal . [facility] Comment on above: Performed By: #### B AQUATICS COORDINATOR, CMP, HS TROP, CK, PTT, CBC, PT ####[address] NRBC% 0.1 /100{WBC} Normal 0-0.5 [facility] Comment on above: Performed By: #### B AQUATICS COORDINATOR, CMP, HS TROP, CK, PTT, CBC, PT ####[address] Platelet mean volume (Bld) [Entitic vol] 9.1 fL Normal 6.6-10.1 [facility] Comment on above: Performed By: #### B AQUATICS COORDINATOR, CMP, HS TROP, CK, PTT, CBC, PT ####[address] Platelets (Bld) [#/Vol] 233 10*3/uL Normal 150-450 [facility] Comment on above: Performed By: #### B AQUATICS COORDINATOR, CMP, HS TROP, CK, PTT, CBC, PT ####[address] RBC (Bld) [#/Vol] 4.63 10*6/uL Normal 3.90-5.60 [facility] Comment on above: Performed By: #### B AQUATICS COORDINATOR, CMP, HS TROP, CK, PTT, CBC, PT ####[address] WBC (Bld) [#/Vol] 9.5 10*3/uL Normal 4.1-10.5 [facility] Comment on above: Performed By: #### B AQUATICS COORDINATOR, CMP, HS TROP, CK, PTT, CBC, PT ####[address] Comprehensive Metabolic Pane bárbara 07-12-2023 Albumin [Mass/Vol] 3.9 g/dL Normal 3.5-5.7 [facility] Comment on above: Performed By: #### B AQUATICS COORDINATOR, CMP, HS TROP, CK, PTT, CBC, PT ####[address] Albumin/Globulin [Mass ratio] 1.3 {ratio} Normal [facility] Comment on above: Performed By: #### B AQUATICS COORDINATOR, CMP, HS TROP, CK, PTT, CBC, PT ####[address] ALP [Catalytic activity/Vol] 106 U/L High 34-104 [facility] Comment on above: Performed By: #### B AQUATICS COORDINATOR, CMP, HS TROP, CK, PTT, CBC, PT ####[address] ALT [Catalytic activity/Vol] 9 U/L Normal 7-52 [facility] Comment on above: Performed By: #### B AQUATICS COORDINATOR, CMP, HS TROP, CK, PTT, CBC, PT ####[address] Anion gap [Moles/Vol] 13.4 mmol/L Normal 6.0-15.0 [facility] Comment on above: Performed By: #### B AQUATICS COORDINATOR, CMP, HS TROP, CK, PTT, CBC, PT ####[address] AST [Catalytic activity/Vol] 8 U/L Low 13-39 [facility] Comment on above: Performed By: #### B AQUATICS COORDINATOR, CMP, HS TROP, CK, PTT, CBC, PT ####[address] Bilirubin [Mass/Vol] 0.4 mg/dL Normal 0.3-1.0 [facility] Comment on above: Performed By: #### B AQUATICS COORDINATOR, CMP, HS TROP, CK, PTT, CBC, PT ####[address] Calcium [Mass/Vol] 8.5 mg/dL Low 8.6-10.3 [facility] Comment on above: Performed By: #### B AQUATICS COORDINATOR, CMP, HS TROP, CK, PTT, CBC, PT ####[place] [id number] [facility] Chloride [Moles/Vol] 102 mmol/L Normal 98-107 [facility] Comment on above: Performed By: #### B AQUATICS COORDINATOR, CMP, HS TROP, CK, PTT, CBC, PT ####[place] [id number] [facility] CO2 [Moles/Vol] 24.5 mmol/L Normal 21.0-31.0 [facility] Comment on above: Performed By: #### B AQUATICS COORDINATOR, CMP, HS TROP, CK, PTT, CBC, PT ####[place] [id number] [facility] Creatinine [Mass/Vol] 1.82 mg/dL High 0.70-1.30 [facility] Comment on above: Performed By: #### B AQUATICS COORDINATOR, CMP, HS TROP, CK, PTT, CBC, PT ####[address] Creatinine Clr Calc Pharmacy 54.64 [facility] Comment on above: Result Comment: PERF ORMED BY: [facility] [address] [place] [address] PATHOLOGIST SEWING MACHINE ASSEMBLER CLIFFORD LOBATO M.D. Performed By: #### B AQUATICS COORDINATOR, CMP, HS TROP, CK, PTT, CBC, PT ####[place] [id number] [facility] GFR/1.73 sq M.predicted MDRD (S/P/Bld) [Vol rate/Area] 42.789 mL/min/{1.73_m2} [facility] Comment on above: Performed By: #### B AQUATICS COORDINATOR, CMP, HS TROP, CK, PTT, CBC, PT ####[place] [id number] [facility] Globulin (S) [Mass/Vol] 3.1 g/dL [facility] Comment on above: Performed By: #### B AQUATICS COORDINATOR, CMP, HS TROP, CK, PTT, CBC, PT ####[place] [id number] [facility] Glucose [Mass/Vol] 302 mg/dL High 70-100 [facility] Comment on above: Result Comment: [facility] Glucose Reference Range is dependent on time and content of last meal. Glucose of more than 200 mg/dL in a nonstressed, ambulatory subject supports the diagnosis of Diabetes Mellitus. ADA recommended reference range Performed By: #### B AQUATICS COORDINATOR, CMP, HS TROP, CK, PTT, CBC, PT ####[place] [id number] [place] [id number] [facility] Potassium [Moles/Vol] 3.9 mmol/L Normal 3.5-5.1 [facility] Comment on above: Performed By: #### B AQUATICS COORDINATOR, CMP, HS TROP, CK, PTT, CBC, PT ####[place] [address] [place] [address] [facility] Protein [Mass/Vol] 7.0 g/dL Normal 6.4-8.9 [facility] Comment on above: Performed By: #### B AQUATICS COORDINATOR, CMP, HS TROP, CK, PTT, CBC, PT ####[address] [address] [facility] Sodium [Moles/Vol] 136 mmol/L Normal 136-145 [facility] Comment on above: Performed By: #### B AQUATICS COORDINATOR, CMP, HS TROP, CK, PTT, CBC, PT ####[address] [address] [facility] Urea nitrogen [Mass/Vol] 16 mg/dL Normal 7-25 [facility] Comment on above: Performed By: #### B AQUATICS COORDINATOR, CMP, HS TROP, CK, PTT, CBC, PT ####[address] [address] [facility] Creatine Kinaseon 07-12-2023 CK [Catalytic activity/Vol] 55 U/L Normal 30-223 [facility] Comment on above: Performed By: #### B AQUATICS COORDINATOR, CMP, HS TROP, CK, PTT, CBC, PT ####[address] [address] [place] Creatine kinase [Enzymatic a ctivity/volume] in Serum or PlasmaOrdered By: Nancy Chaudhari on 07-12-2023 CK [Catalytic activity/Vol] 55 U/L 30-223 [facility] Creatinine [Mass/volume] in Serum or PlasmaOrdered By: Nancy Chaudhari on 07-12-2023 Creatinine [Mass/Vol] 1.82 mg/dL 0.70-1.30 [facility] ECG 12 lead ECGon 07-12-2023 ECG 12 lead ECG [facility] [place] [address] Electrocardiograph Report Signed Patient: Solomon Feldman SR MR#: [id number] : 1965 Acct:[id number] Age/Sex: 57 / M ADM Date: 07/12/23 Loc: ER Room: Type: [facility] ER Attending Dr: Ordering Provider: Nancy Chaudhari [...] By Nancy Chaudhari MD 01/26 0135 Normal [facility] Eosinophils Auto (Bld) [#/Vo l]Ordered By: Nancy Chaudhari on 07-12-2023 Eosinophils (Bld) [#/Vol] 0.3 10*3/uL 0.0-0.45 [facility] Eosinophils/100 WBC Auto (Bl d)Ordered By: Nancy Chaudhari on 07-12-2023 Eosinophils/100 WBC (Bld) 3.3 % . [facility] Erythrocyte distribution wid th Auto (RBC) [Ratio]Ordered By: Nancy Chaudhari on 07-12-2023 Erythrocyte distribution width (RBC) [Ratio] 17.1 % 12.0-14.8 [facility] Globulin Calc (S) [Mass/Vol] Ordered By: Nancy Chaudhari on 07-12-2023 Globulin (S) [Mass/Vol] 3.1 g/dL [facility] Glucose [Mass/volume] in Ser um or PlasmaOrdered By: Nancy Chaudhari on 07-12-2023 Glucose [Mass/Vol] 302 mg/dL 70-100 [facility] Comment on above: ADA recommended refe rence rangeRandom Glucose Reference Range is dependent on time and content of last meal. Glucose of more than 200 mg/dL in a nonstressed, ambulatory subject supports the diagnosis of Diabetes Mellitus. Hematocrit Auto (Bld) [Volum e fraction]Ordered By: Nancy Chaudhari on 07-12-2023 Hematocrit (Bld) [Volume fraction] 32.7 % 38.8-50.0 [facility] Hemoglobin [Mass/volume] in BloodOrdered By: Nancy Chaudhari on 07-12-2023 Hemoglobin (Bld) [Mass/Vol] 10.6 g/dL 13.0-17.0 [facility] INR in Platelet poor plasma by Coagulation assayOrdered By: Nancy Chaudhari on 07-12-2023 INR Coag (PPP) [Relative time] 1.1 {INR} [facility] Comment on above: INR Therapeutic Rang e [...] RBC Auto (Bld) [#/Vol] 9.5 10*3/uL 4.1-10.5 [facility] Lymphocytes Auto (Bld) [#/Vo l]Ordered By: Nancy Chaudhari on 07-12-2023 Lymphocytes (Bld) [#/Vol] 1.9 10*3/uL 1.00-4.8 [facility] Lymphocytes/100 WBC Auto (Bl d)Ordered By: Nancy Chaudhari on 07-12-2023 Lymphocytes/100 WBC (Bld) 20.0 % . [facility] MCH Auto (RBC) [Entitic mass ]Ordered By: Nancy Chaudhari on 07-12-2023 MCH (RBC) [Entitic mass] 22.8 pg 27.5-35.2 [facility] MCHC Auto (RBC) [Mass/Vol]Or dered By: Nancy Chaudhari on 07-12-2023 MCHC (RBC) [Mass/Vol] 32.4 g/dL 32.5-35.6 [facility] MCV Auto (RBC) [Entitic vol] Ordered By: Nancy Chaudhari on 07-12-2023 MCV (RBC) [Entitic vol] 70.6 fL 83.5-101 [facility] Monocyte distribution width [Entitic volume] in Blood by AutomatedOrdered By: Nancy Chaudhari on 07-12-2023 Monocyte distribution width Auto (Bld) [Entitic vol] 18.12 % 0.00-20.00 [facility] Monocytes Auto (Bld) [#/Vol] Ordered By: Nancy Chaudhari on 07-12-2023 Monocytes (Bld) [#/Vol] 1.0 10*3/uL 0.0-0.8 [facility] Monocytes/100 WBC Auto (Bld) Ordered By: Nancy Chaudhari on 07-12-2023 Monocytes/100 WBC (Bld) 10.2 % . [facility] Natriuretic peptide B [Mass/ Vol]Ordered By: Nancy Chaudhari on 07-12-2023 Natriuretic peptide B (Bld) [Mass/Vol] 34.0 pg/mL 5-100 [facility] Neutrophils Auto (Bld) [#/Vo l]Ordered By: Nancy Chaudhari on 07-12-2023 Neutrophils (Bld) [#/Vol] 6.2 10*3/uL 1.8-7.7 [facility] Neutrophils/100 WBC Auto (Bl d)Ordered By: Nancy Chaudhari on 07-12-2023 Neutrophils/100 WBC (Bld) 65.4 % . [facility] No Panel InformationOrdered By: Nancy Chaudhari on 07-12-2023 Estimated GFR (CKD-EPI) 42.789 mL/Min [facility] Creatinine Clearance (Chem 54.64 [facility] Nucleated erythrocytes [Pres ence] in Blood by Automated countOrdered By: Nancy Chaudhari on 07-12-2023 Nucleated RBC Auto Ql (Bld) 0.1 /100{WBC} 0-0.5 [facility] Partial Thromboplastin Timeo n 07-12-2023 aPTT Coag (Bld) [Time] 29.4 s Normal 25.1-36.5 [facility] Comment on above: Result Comment: A he matocrit value greater than 55% may lead to inaccurate results in coagulation testing. Patients having hematocrit values >55% require a special collection tube for coagulation studies. Please contact the laboratory at [phone] for redraw instructions. PERFORMED BY: [facility] [address] [place] [id number] PATHOLOGIST SEWING MACHINE ASSEMBLER CLIFFORD LOBATO M.D. Performed By: #### B AQUATICS COORDINATOR, CMP, HS TROP, CK, PTT, CBC, PT ####[facility] [id number] [place] [id number] [facility] Platelet mean volume Auto (B ld) [Entitic vol]Ordered By: Nancy Chaudhari on 07-12-2023 Platelet mean volume (Bld) [Entitic vol] 9.1 fL 6.6-10.1 [facility] Platelets Auto (Bld) [#/Vol] Ordered By: Nancy Chaudhari on 07-12-2023 Platelets (Bld) [#/Vol] 233 10*3/uL 150-450 [facility] Potassium [Moles/volume] in Serum or PlasmaOrdered By: Nancy Chaudhari on 07-12-2023 Potassium [Moles/Vol] 3.9 mmol/L 3.5-5.1 [facility] Protein [Mass/volume] in Ser um or PlasmaOrdered By: Nancy Chaudhari on 07-12-2023 Protein [Mass/Vol] 7.0 g/dL 6.4-8.9 [facility] Prothrombin Time INRon 07-12 INR Coag (PPP) [Relative time] 1.1 {INR} Normal [facility] Comment on above: Result Comment: INR Therapeutic [...] 3 - 4.5 Performed By: #### B AQUATICS COORDINATOR, CMP, HS TROP, CK, PTT, CBC, PT ####[facility] [id number] [place] [id number] [facility] PT Coag (PPP) [Time] 12.1 s Normal 9.0-12.9 [facility] Comment on above: Result Comment: A he matocrit value greater than 55% may lead to inaccurate results in coagulation testing. Patients having hematocrit values >55% require a special collection tube for coagulation studies. Please contact the laboratory at [phone] for redraw instructions. Performed By: #### B AQUATICS COORDINATOR, CMP, HS TROP, CK, PTT, CBC, PT ####[facility] [place] [id number] [facility] Prothrombin time (PT)Ordered By: Nancy Chaudhari on 07-12-2023 PT Coag (PPP) [Time] 12.1 s 9.0-12.9 [facility] Comment on above: A hematocrit value g reater than 55% may lead to inaccurate results in coagulation testing. Patients having hematocrit values >55% require a special collection tube for coagulation studies. Please contact the laboratory at [phone] for redraw instructions. RBC Auto (Bld) [#/Vol]Ordere d By: Nancy Chaudhari on 07-12-2023 RBC (Bld) [#/Vol] 4.63 10*6/uL 3.90-5.60 [facility] Serum or plasma albumin/glob ulin mass ratioOrdered By: Nancy Chaudhari on 07-12-2023 Albumin/Globulin [Mass ratio] 1.3 {ratio} [facility] Serum or plasma anion gap de terminationOrdered By: Nancy Chaudhari on 07-12-2023 Anion gap [Moles/Vol] 13.4 mmol/L 6.0-15.0 [facility] Sodium [Moles/volume] in Ser um or PlasmaOrdered By: Nancy Chaudhari on 07-12-2023 Sodium [Moles/Vol] 136 mmol/L 136-145 [facility] Troponin I High Sensitivityo n 07-12-2023 Troponin I High Sensitivity 4.6 pg/mL Normal 0.0-20.0 [facility] Comment on above: Result Comment: PERF ORMED BY: [place] [address] PATHOLOGIST SEWING MACHINE ASSEMBLER CLIFFORD LOBATO M.D. Performed By: #### B AQUATICS COORDINATOR, CMP, HS TROP, CK, PTT, CBC, PT ####[facility] Troponin I.cardiac [Mass/vol ume] in Serum or Plasma by Detection limit <= 0.01 ng/Ordered By: Nancy Chaudhari on 07-12-2023 Troponin I.cardiac DL <= 0.01 ng/mL [Mass/Vol] 4.6 pg/mL 0.0-20.0 [facility] Urea nitrogen [Mass/volume] in Serum or PlasmaOrdered By: Nancy Chaudhari on 07-12-2023 Urea nitrogen [Mass/Vol] 16 mg/dL 7-25 [facility] WBC Auto (Bld) [#/Vol]Ordere d By: Nancy Chaudhari on 07-12-2023 WBC (Bld) [#/Vol] 9.5 10*3/uL 4.1-10.5 [facility] XR chest 1V portableon 07-12 XR chest 1V portable [facility] Main [address] [address] XRay Report Signed Patient: Solomon Feldman SR MR#: [id number] : 1965 Acct:[id number] Age/Sex: 57 / M ADM Date: 07/12/23 [...] Sudeep Lind M.D.07/12/2023 5:08 PM Dictation Location: [place] [address] Transcribed By: [facility] 07/12/231707 Dictated By: Sudeep Lind DO 07/12/231706 Signed By: 07/12/231707 [facility] Patient Educationon 06-02-20 23 Patient Education [...] Follow these instructions at home: ? Take uney-wds-luyvlba and prescription medicines only as told by [...] the medicine (more content not included)... Normal [facility] Retail - Clinical Noteon Retail - Clinical Note [id number]#1.00TIFF [facility] Urology Office/Clinic Noteon 06-02-2023 Urology Office/Clinic Note Chief Complaint S/p to Cysto HPI Staff Sp to Cysto done @ [facility] on 02/14/23- Has not noticed any difference- [...] Information SOLEDAD HERRERA, Yeyo Blum, URL [address] [place] [id number]- Additional Instructions: 1 month w/ cath volumes [...] heart failure) (more content not included)... Normal [facility] Comment on above: Result Comment: Elec tronically Signed By: Yeyo SILVESTRE MD\.br\Date and Time Signed: 06/02/23 12:16 EST\.br\Electronically Co-Signed By: Mattie Foster.br\Date and Time Co-Signed: 06/02/23 12:04 EST Patient Educationon 05-03-20 Patient Education Normal [facility] Pathology Noteon 05-02-2023 Pathology Note [id number]#1.00TIFF Normal [facility] Lab Reportson 04-14-2023 Lab Reports [id number]#1.00TIFF Normal [facility] Operative Reporton Operative Report [id number]#1.00TIFF Normal [facility] Patient Correspondenceon Patient Correspondence [id number]#1.00TIFF Normal [facility] Lab Reportson 03-31-2023 Lab Reports [id number]#1.00TIFF Normal [facility] RAD - MISCon 03-31-2023 RAD - MISC [id number]#1.00TIFF Normal [facility] Patient Correspondenceon Patient Correspondence [id number]#1.00TIFF Normal [facility] Formson 03-23-2023 Forms [id number]#1.00TIFF Normal [facility] A1C HEMOGLOBINon 03-15-2023 HbA1c (Bld) [Mass fraction] 7.5 % [employer] Other HbA1c (Bld) [Mass fraction]o n 03-15-2023 A1C HEMOGLOBIN [employer] Other Lab Reportson 03-09-2023 Lab Reports [id number]#1.00TIFF Normal [facility] Consultation Noteon 02-28-20 Consultation Note [id number]#1.00CD:12 7 Normal [facility] Consent for Procedure/Surger yon 02-15-2023 Consent for Procedure/Surgery [id number]#1.00CD:12 7 Normal [facility] Office Visit (Cardiology)on 02-15-2023 Follow-up visit [...] in adult Healthy Weight Tips; Status:Complete; Done: [id number] Patient Instructions Please bring all medicines, vitamins, [...] Sia HERRERA, (more content not included)... Normal [employer] Tobacco Screening.on 023 Fall risk assessment c) Not medically indicated -[facility] [facility] 250 DO Work Phone: Tobacco use status CP b) No [facility] [facility] 250 DO Work Phone: Tobacco Screening. Yes [facility] [facility] 250 DO Work Phone: Consent for Procedure/Surger yon 02-14-2023 Consent for Procedure/Surgery [id number]#1.00CD:1 27 [facility] Consent for Procedure/Surgery [id number]#1.00CD:1 27 [facility] Consent for Treatmenton 02-03 Consent for Treatment [id number]#1.00CD:12 7 [facility] IntraOperative Documentson 0 02-14-2023 IntraOperative Documents [id number]#1.00CD:1 27 [facility] IntraOperative Documents [id number]#1.00CD:1 27 [facility] Main OR Intraoperative Recor don 02-14-2023 Main OR Intraoperative Record IntraOp Document Type FTURO Summary Primary Physician: Yeyo SILVESTRE MD Finalized Date/Time: 02/14/23 10:18:58 Pt. Name: GASTON CHRISTIAN, SOLOMON Navarro./Sex: 1965 Male Med Rec #: [id number] Physician: Yeyo SILVESTRE MD Financial #: [id number] Pt. Type: O Room/Bed: / Admit/Disch: 02/14/23 [...] Sheri Daniel Role Performed Surgeon - Primary Vocational Training Teacher - Primary Scrub - Primary Time In [...] 09:45 Chandrika Martínez RN 02/14/23 10:18 Normal [facility] Main OR Preoperative Recordo n 02-14-2023 Main OR Preoperative Record Holding Area Document Type FTURO Summary Primary Physician: Yeyo SILVESTRE MD Finalized Date/Time: 02/14/23 09:01:37 Pt. Name: GASTON SOLOMON CHRISTIAN/Sex: 1965 Male Med Rec #: [id number] Physician: Yeyo SILVESTRE MD Financial #: [id number] Pt. Type: O Room/Bed: / Admit/Disch: 02/14/23 [...] By: Sheri Bolivar RN 02/14/23 09:01 Normal [facility] Operative Reporton Operative Report Patient: GASTON , Joe Daniel Age: 57 years Sex: [...] with antibiotic coverage, Follow up arranged. Normal [facility] Comment on above: Result Comment: Elec [...] including vitamins, herbs, eye drops, creams, and fhjk-atr-fcchwkc medicines. ? Any problems you or family [...] tells you to take them. ? Taking jsah-kii-mfkgyrj medicines, vitamins, herbs, and supplements. Surgery safety [...] health care (more content not included)... Normal [facility] Progress Note-Physicianon Progress Note-Physician Patient: SOLOMON [...] mg = 1 tab(s), PRN, SubLingual, q5min Cresson 325 mg-5 mg oral tablet 1 tab(s), [...] 278.00 / Possible Fibromyalgia / SNOMED CT [id number] 024906O93B3 / Confirmed Restless leg / ICD-9-CM 333.94 / Confirmed Arthritis / SNOMED CT 97CZ5137-7X3W-15J6-8N2N-K UP9G823A444 / Confirmed Hyperlipidemia / SNOMED CT 88234369 / Confirmed Smoker / SNOMED CT N760PV0Z-2339-40W1-6652-T TC6J5921OA8 / Confirmed Added secondary to documentation in Social History. Asthma / SNOMED CT 571070929 / Confirmed COPD type A / SNOMED CT 726510755 / Confirmed Head ache / SNOMED CT 32746562 / Confirmed Heart attack / SNOMED CT 94704223 / Confirmed Heart disease / SNOMED CT 20191105 / Confirmed Heart murmur / SNOMED CT 129698412 / Confirmed Urinary retention / SNOMED CT 864522760 / Confirmed BPH with obstruction/lower urinary tract symptoms / SNOMED CT 4318514718 / Confirmed Orchitis / SNOMED CT 958754555 / Confirmed Gross hematuria / SNOMED CT 261988054 / Confirmed Tobacco use / SNOMED CT XDEE3347-8987-0V90-P5F2-4 13381ZO3ZT2 / Confirmed Added secondary to social history documentation. Histories Past Medical History: Active Fibromyalgia ([id number]-6956-06S0- 8391395Q87B4) Restless leg (333.94) Arthritis (20NM8408-7L3V-00X7-8V0X- QGY2V036F919) Hyperlipidemia (60088695) Resolved HTN [Hypertension] (401.9): Resolved. NIDDM (250.00): Resolved. GERD [Gastroesophageal reflux disease] (530.81): Resolved. CHF (congestive heart failure) (O1641635-6D4V-6V7T-2D40- F461645G0B96): Resolved. SD (myocardial infarction) (903S5EIX-13W5-9Z1G-3R57- 37704Y78D6RW): Resolved. Family History: Diabetes mellitus Mother Heart disease Mother Alcoholism Brother Drug addiction Brother Acute myocardial infarction Mother Grandparent Procedure history: Bilateral Eye Surgery. Comments: 07/10/2014 17:25 ALESHA - [facility], Kati bilateral cataracts with iol implants Bilateral Carpal Tunnel Surgery. cardiac stents. Appendectomy (293702949). Colonoscopy (773585824). Cataract extraction and insertion of intraocular lens (8436499264). Procedure on back (358267401). Social History Social & Psychosocial Habits Alcohol [...] procedure such (more content not included)... Normal [facility] Comment on above: Result Comment: Elec tronically Signed By: SOLEDAD HERRERA, Yeyo Blum\.br\Date and Time Signed: 02/14/23 09:58 EDT Consent for Treatmenton 09-0 Consent for Treatment [id number]#1.00CD:12 7 Normal [facility] Ambulatory Visit Summaryon 0 01-30-2023 Ambulatory Visit Summary SOLOMON FELDMNA SR :1965 Visit Date:01/30/2023 Ambulatory Visit Instructions Your Diagnosis Urinary retention Gross hematuria BPH with obstruction/lower urinary tract symptoms Orchitis Your Care Team Attending Physician - Yeyo SILVESTRE MD Primary Care Physician - JENARO LYNCH DO This Is Your Medications List Contact prescribing physician if questions or concerns acetaminophen-hydrocodone (Cresson 325 mg-5 mg oral tablet) albuterol (ProAir [...] [facility] [address] , [place] [phone] Medications What How Much When Instructions Unchanged acetaminophen-hydrocodone (Cresson 325 mg-5 mg oral tablet) 1 Tablets [...] or vivian (more content not included)... Normal [facility] Patient Educationon 01-31-20 23 Patient Education [...] including vitamins, herbs, eye drops, creams, and lhxm-pgv-fedbxqh medicines. ? Whether you are or may [...] be (more content not included)... Normal [facility] Urology Office/Clinic Noteon 01-30-2023 Urology Office/Clinic Note [...] Blum, URL [facility] [address] [place] [phone] Additional Instructions: sched cysto/uros Patient Education Urodynamic [...] failure) GERD [Gastroesophageal reflux disease] HTN [Hypertension] SD (myocardial infarction) NIDDM Procedure/Surgical History Appendectomy, Bilateral [...] mg, BID (more content not included)... Normal [facility] Comment on above: Result Comment: Elec tronically Signed By: Saima Sutton\.br\Date and Time Signed: 01/30/23 11:[address] [facility] CARDIAC STRESS/REST INJE CTIONon 01-25-[address] [facility] CARDIAC STRESS/REST INJECTION Patient Name: SOLOMON FELDMAN STUDY: MYOCARDIAL PERFUSION STRESS TEST WITH EXERCISE CONVERTED TO LEXISCAN Performing facility: [facility], [address] [place] [address], [address], [place] [id number] [facility] Provider: Dolores Feldman RN, SR. VENDOR MANAGEMENT ASSOCIATE PCP: Dr. Jenaro Lynch Supervising provider: Pascale Purvis MD, [facility] INDICATION: Anginal equivalent CAD; HISTORY: Gender: M; Age: 57 y/o ; Height: 182.88 cm; Weight: 97.0918691 kg. High Cholesterol; CAD; Diabetes; HTN; Palpitations; Chest Pain; Quit smoking unknown years ago. COMPARISON: Previous nuclear testing completed at [facility]. ACCESSION NUMBER(S): [id number]; [id number]; [id number] ORDERING CLINICIAN: DOLORES FELDMAN TECHNIQUE: ONE DAY [...] Electronically signed by: PASCALE PURVIS MD Normal [facility] No Panel Informationon 01-25 Normal [facility] [facility] 250 DO Work [...] contact the office if new symptoms arise. AQUATICS COORDINATOR after procedure Chief Complaint Routine f/u: 'I [...] Cataract surg (more content not included)... Normal [employer] Tobacco Screening.on 023 Adult depression screening assessment No [facility] 600 DO Work Phone: Tobacco use status CPH[facility] b) No [facility] 600 DO Work Phone: Ambulatory Visit Summaryon 0 12-28-2022 Ambulatory Visit Summary SOLOMON FELDMAN SR :1965 Visit Date:12/28/2022 Ambulatory Visit Instructions Your Care Team Attending Physician - SOLEDAD HERRERA, Yeyo Blum Primary Care Physician - JENARO LYNCH DO This Is Your Medications List acetaminophen-hydrocodone (Cresson 325 mg-5 mg oral tablet) albuterol (ProAir [...] Monday 10:15 AM EDT With: SOLEDAD HERRERA, eYyo Blum Where: [facility] [place] Normal [facility] Formson 11-24-2022 Forms [id number]#1.00CD:127 Normal [facility] Screenson 11-24-2022 Screens [id number]#1.00CD:1 27 Normal [facility] Patient Educationon 11-24-19 23 Patient Education [...] provider. Document Revised: 08/11/2021 Document Reviewed: 05/07/2021 [employer] Patient Education ? 2021 [employer] [facility] Urology Office/Clinic Noteon 11-23-2022 Urology Office/Clinic Note [...] bid x 3 weeks. Rx sent to [facility] [place]. Follow-up With When Contact Information SOLEDAD HERRERA, Yeyo Blum, URL [facility] [address] , [place] [address]- Additional Instructions: 1 month for cath change [...] failure) GERD [Gastroesophageal reflux disease] HTN [Hypertension] SD (myocardial infarction) NIDDM Procedure/Surgical History Appendectomy, Bilateral Carpal Tunnel Surgery, Bilateral Eye Surgery, cardiac stents, Ca (more content not included)... Normal [facility] Comment on above: Result Comment: Elec tronically Signed By: SOLEDAD HERRERA, Yeyo Blum\.br\Date and Time Signed: 11/23/22 12:47 EDT\.br\Electronically Co-Signed By: Lorie Leblanc\.br\Date and Time Co-Signed: 11/23/22 12:46 EDT A1C with Estimated Average G juliannacharlie 09-27-2022 Glucose [Mass/Vol] 246 mg/dL Normal [facility] Comment on above: Order Comment: Reaso n for Exam Type 2 diabetes mellitus with circulatory disorder Result Comment: PERF ORMED BY: [place] [address] PATHOLOGIST SEWING MACHINE ASSEMBLER CLIFFORD LOBATO M.D. Performed By: #### A 1C [facility] #### [address] HbA1c (Bld) [Mass fraction] 10.2 % High 4.3-5.6 [facility] Comment on above: Order Comment: Reaso n for Exam Type 2 diabetes mellitus with circulatory disorder Result Comment: Incr eased risk for diabetes: 5.7 - 6.4 diabetes: >6.4 glycemic control for adults with diabetes: <7.0 Performed By: #### A 1C [facility] #### [facility] [address] Alanine aminotransferase [En zymatic activity/volume] in Serum or PlasmaOrdered By: Jenaro Lynch on 09-27-2022 ALT [Catalytic activity/Vol] 15 U/L 7-52 [facility] Albumin [Mass/volume] in Ser um or Plasma by Bromocresol green (BCG) dye binding methoOrdered By: Jenaro Lynch on 09-27-2022 Albumin BCG dye [Mass/Vol] 4.1 g/dL 3.5-5.7 [facility] Alkaline phosphatase [Enzyma tic activity/volume] in Serum or PlasmaOrdered By: Jenaro Lynch on 09-27-2022 ALP [Catalytic activity/Vol] 116 U/L 34-104 [facility] Aspartate aminotransferase [ Enzymatic activity/volume] in Serum or PlasmaOrdered By: Jenaro Lynch on 09-27-2022 AST [Catalytic activity/Vol] 15 U/L 13-39 [facility] Basophils Auto (Bld) [#/Vol] Ordered By: Jenaro Lynch on 09-27-2022 Basophils (Bld) [#/Vol] 0.1 10*3/uL 0.0-0.2 [facility] Basophils/100 WBC Auto (Bld) Ordered By: Jenaro Lynch on 09-27-2022 Basophils/100 WBC (Bld) 1.1 % . [facility] Bilirubin.total [Mass/volume ] in Serum or PlasmaOrdered By: Jenaro Lynch on 09-27-2022 Bilirubin [Mass/Vol] 0.4 mg/dL 0.3-1.0 [facility] Calcium [Mass/volume] in Ser um or PlasmaOrdered By: Jenaro Lynch on 09-27-2022 Calcium [Mass/Vol] 8.8 mg/dL 8.6-10.3 [facility] Carbon dioxide, total [Moles /volume] in Serum or PlasmaOrdered By: Jenaro Lynch on 09-27-2022 CO2 [Moles/Vol] 27.2 mmol/L 21.0-31.0 [facility] Chloride [Moles/volume] in S ilia or PlasmaOrdered By: Jenaro Lynch on 09-27-2022 Chloride [Moles/Vol] 99 mmol/L 98-107 [facility] Cholesterol [Mass/volume] in Serum or PlasmaOrdered By: Jenaro Lynch on 09-27-2022 Cholesterol [Mass/Vol] 104 mg/dL 140-200 Fi [facility] Comment on above: Chol less than 200 m g/dl low riskChol 201-239 mg/dl borderline riskChol 240 mg/dl and greater high risk Cholesterol in LDL Calc [Mas s/Vol]Ordered By: Jenaro Lynch on 09-27-2022 Cholesterol in LDL [Mass/Vol] TNP [facility] Comment on above: Test not performed Cholesterol in LDL [Mass/vol ume] in Serum or PlasmaOrdered By: Jenaro Lynch on 09-27-2022 Cholesterol in LDL [Mass/Vol] 38 mg/dL 0-100 [facility] Comment on above: LDL ATP III CLASSIFI CATIONLDL less than 100 mg/dL OptimalLDL 100-129 mg/dL Near or above optimalLDL 130-159 mg/dL Borderline highLDL 160-189 mg/dL HighLDL greater than 189 mg/dL Very high Cholesterol in VLDL Calc [Ma ss/Vol]Ordered By: Jenaro Lynch on 09-27-2022 Cholesterol in VLDL [Mass/Vol] 99 mg/dL [facility] Complete Blood Count Auto Di ffon 09-27-2022 Basophils (Bld) [#/Vol] 0.1 10*3/uL Normal 0.0-0.2 [facility] Comment on above: Order Comment: Reaso n for Exam Hyperlipidemia;Type 2 diabetes mellitus with circulatory dis Result Comment: PERF ORMED BY: [place] [address] PATHOLOGIST SEWING MACHINE ASSEMBLER CLIFFORD LOBATO M.D. Performed By: #### C BC #### [address] Basophils/100 WBC (Bld) 1.1 % Normal . [facility] Comment on above: Order Comment: Reaso n for Exam Hyperlipidemia;Type 2 diabetes mellitus with circulatory dis Performed By: #### C BC #### [facility] [address] [place] [address] [place] Eosinophils (Bld) [#/Vol] 0.7 10*3/uL High 0.0-0.45 [facility] Comment on above: Order Comment: Reaso n for Exam Hyperlipidemia;Type 2 diabetes mellitus with circulatory dis Performed By: #### C BC #### [facility] [address] [place] [address] [place] Eosinophils/100 WBC (Bld) 5.9 % Normal . [facility] Comment on above: Order Comment: Reaso n for Exam Hyperlipidemia;Type 2 diabetes mellitus with circulatory dis Performed By: #### C BC #### [facility] [address] Erythrocyte distribution width (RBC) [Ratio] 16.0 % High 12.0-14.8 [facility] Comment on above: Order Comment: Reaso n for Exam Hyperlipidemia;Type 2 diabetes mellitus with circulatory dis Performed By: #### C BC #### [address] Hematocrit (Bld) [Volume fraction] 41.0 % Normal 38.8-50.0 [facility] Comment on above: Order Comment: Reaso n for Exam Hyperlipidemia;Type 2 diabetes mellitus with circulatory dis Performed By: #### C BC #### [place] [address] [place] Hemoglobin (Bld) [Mass/Vol] 13.2 g/dL Normal 13.0-17.0 [facility] Comment on above: Order Comment: Reaso n for Exam Hyperlipidemia;Type 2 diabetes mellitus with circulatory dis Performed By: #### C BC #### [facility] [address] [place] [address] [place] Lymphocytes (Bld) [#/Vol] 2.3 10*3/uL Normal 1.00-4.8 [facility] Comment on above: Order Comment: Reaso n for Exam Hyperlipidemia;Type 2 diabetes mellitus with circulatory dis Performed By: #### C BC #### [place] [address] [place] Lymphocytes/100 WBC (Bld) 18.2 % Normal . [facility] Comment on above: Order Comment: Reaso n for Exam Hyperlipidemia;Type 2 diabetes mellitus with circulatory dis Performed By: #### C BC #### [facility] [address] MCH (RBC) [Entitic mass] 23.9 pg Low 27.5-35.2 [facility] Comment on above: Order Comment: Reaso n for Exam Hyperlipidemia;Type 2 diabetes mellitus with circulatory dis Performed By: #### C BC #### [address] MCV (RBC) [Entitic vol] 74.3 fL Low 83.5-101 [facility] Comment on above: Order Comment: Reaso n for Exam Hyperlipidemia;Type 2 diabetes mellitus with circulatory dis Performed By: #### C BC #### [address] Mean Corpuscular HGB Conc 32.2 g/dL Low 32.5-35.6 [facility] Comment on above: Order Comment: Reaso n for Exam Hyperlipidemia;Type 2 diabetes mellitus with circulatory dis Performed By: #### C BC #### [address] Monocytes (Bld) [#/Vol] 1.0 10*3/uL High 0.0-0.8 [facility] Comment on above: Order Comment: Reaso n for Exam Hyperlipidemia;Type 2 diabetes mellitus with circulatory dis Performed By: #### C BC #### [place] [address] [place] Monocytes/100 WBC (Bld) 7.9 % Normal . [facility] Comment on above: Order Comment: Reaso n for Exam Hyperlipidemia;Type 2 diabetes mellitus with circulatory dis Performed By: #### C BC #### [facility] [address] [place] [address] [place] Neutrophils (Bld) [#/Vol] 8.3 10*3/uL High 1.8-7.7 [facility] Comment on above: Order Comment: Reaso n for Exam Hyperlipidemia;Type 2 diabetes mellitus with circulatory dis Performed By: #### C BC #### [facility] [address] Neutrophils/100 WBC (Bld) 66.9 % Normal . [facility] Comment on above: Order Comment: Reaso n for Exam Hyperlipidemia;Type 2 diabetes mellitus with circulatory dis Performed By: #### C BC #### [facility] [address] NRBC% 0.1 /100{WBC} Normal 0-0.5 [facility] Comment on above: Order Comment: Reaso n for Exam Hyperlipidemia;Type 2 diabetes mellitus with circulatory dis Performed By: #### C BC #### [facility] [address] Platelet mean volume (Bld) [Entitic vol] 9.1 fL Normal 6.6-10.1 [facility] Comment on above: Order Comment: Reaso n for Exam Hyperlipidemia;Type 2 diabetes mellitus with circulatory dis Performed By: #### C BC #### [facility] [address] Platelets (Bld) [#/Vol] 209 10*3/uL Normal 150-450 [facility] Comment on above: Order Comment: Reaso n for Exam Hyperlipidemia;Type 2 diabetes mellitus with circulatory dis Performed By: #### C BC #### [address] RBC (Bld) [#/Vol] 5.52 10*6/uL Normal 3.90-5.60 [facility] Comment on above: Order Comment: Reaso n for Exam Hyperlipidemia;Type 2 diabetes mellitus with circulatory dis Performed By: #### C BC #### [facility] [address] WBC (Bld) [#/Vol] 12.4 10*3/uL High 4.1-10.5 [facility] Comment on above: Order Comment: Reaso n for Exam Hyperlipidemia;Type 2 diabetes mellitus with circulatory dis Performed By: #### C BC #### [facility] [address] Comprehensive Metabolic Pane bárbara 09-27-2022 Albumin [Mass/Vol] 4.1 g/dL Normal 3.5-5.7 [facility] Comment on above: Order Comment: Reaso n for Exam Hyperlipidemia;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 Reason for Exam Gout Performed By: #### T SH3, LDLD, CMP, URIC, LIPID #### [facility] [address] Albumin/Globulin [Mass ratio] 1.4 {ratio} Normal [facility] Comment on above: Order Comment: Reaso n for Exam Hyperlipidemia;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 Reason for Exam Gout Performed By: #### T SH3, LDLD, CMP, URIC, LIPID #### [facility] [address] ALP [Catalytic activity/Vol] 116 U/L High 34-104 [facility] Comment on above: Order Comment: Reaso n for Exam Hyperlipidemia;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 Reason for Exam Gout Performed By: #### T SH3, LDLD, CMP, URIC, LIPID #### [facility] [address] ALT [Catalytic activity/Vol] 15 U/L Normal 7-52 [facility] Comment on above: Order Comment: Reaso n for Exam Hyperlipidemia;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 Reason for Exam Gout Performed By: #### T SH3, LDLD, CMP, URIC, LIPID #### [facility] [address] [place] [address] Anion gap [Moles/Vol] 14.1 mmol/L Normal 6.0-15.0 [facility] Comment on above: Order Comment: Reaso n for Exam Hyperlipidemia;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 Reason for Exam Gout Performed By: #### T SH3, LDLD, CMP, URIC, LIPID #### [facility] [address] [place] [address] [place] AST [Catalytic activity/Vol] 15 U/L Normal 13-39 [facility] Comment on above: Order Comment: Reaso n for Exam Hyperlipidemia;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 Reason for Exam Gout Performed By: #### T SH3, LDLD, CMP, URIC, LIPID #### [facility] [address] [place] [address] [place] Bilirubin [Mass/Vol] 0.4 mg/dL Normal 0.3-1.0 [facility] Comment on above: Order Comment: Reaso n for Exam Hyperlipidemia;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 Reason for Exam Gout Performed By: #### T SH3, LDLD, CMP, URIC, LIPID #### [facility] [address] Calcium [Mass/Vol] 8.8 mg/dL Normal 8.6-10.3 [facility] Comment on above: Order Comment: Reaso n for Exam Hyperlipidemia;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 Reason for Exam Gout Performed By: #### T SH3, LDLD, CMP, URIC, LIPID #### [facility] [address] [place] [address] [place] Chloride [Moles/Vol] 99 mmol/L Normal 98-107 [facility] Comment on above: Order Comment: Reaso n for Exam Hyperlipidemia;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 Reason for Exam Gout Performed By: #### T SH3, LDLD, CMP, URIC, LIPID #### [facility] [address] [place] [address] [place] CO2 [Moles/Vol] 27.2 mmol/L Normal 21.0-31.0 [facility] Comment on above: Order Comment: Reaso n for Exam Hyperlipidemia;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 Reason for Exam Gout Performed By: #### T SH3, LDLD, CMP, URIC, LIPID #### [facility] [address] [place] [id number] [place] Creatinine [Mass/Vol] 1.84 mg/dL High 0.70-1.30 [facility] Comment on above: Order Comment: Reaso n for Exam Hyperlipidemia;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 Reason for Exam Gout Performed By: #### T SH3, LDLD, CMP, URIC, LIPID #### [facility] [address] [place] [id number] [place] GFR/1.73 sq M.predicted MDRD (S/P/Bld) [Vol rate/Area] 42.232 mL/min/{1.73_m2} [facility] Comment on above: Order Comment: Reaso n for Exam Hyperlipidemia;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 Reason for Exam Gout Performed By: #### T SH3, LDLD, CMP, URIC, LIPID #### [facility] [address] Globulin (S) [Mass/Vol] 2.9 g/dL [facility] Comment on above: Order Comment: Reaso n for Exam Hyperlipidemia;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 Reason for Exam Gout Performed By: #### T SH3, LDLD, CMP, URIC, LIPID #### [facility] [address] Glucose [Mass/Vol] 225 mg/dL High 70-100 [facility] Comment on above: Order Comment: Reaso n for Exam Hyperlipidemia;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 Reason for Exam Gout Result Comment: [facility] Glucose Reference Range is dependent on time and content of last meal. Glucose of more than 200 mg/dL in a nonstressed, ambulatory subject supports the diagnosis of Diabetes Mellitus. ADA recommended reference range Performed By: #### T SH3, LDLD, CMP, URIC, LIPID #### [facility] [address] Potassium [Moles/Vol] 4.3 mmol/L Normal 3.5-5.1 [facility] Comment on above: Order Comment: Reaso n for Exam Hyperlipidemia;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 Reason for Exam Gout Performed By: #### T SH3, LDLD, CMP, URIC, LIPID #### [facility] [address] [place] [id number] [facility] Protein [Mass/Vol] 7.0 g/dL Normal 6.4-8.9 [facility] Comment on above: Order Comment: Reaso n for Exam Hyperlipidemia;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 Reason for Exam Gout Performed By: #### T SH3, LDLD, CMP, URIC, LIPID #### [facility] [address] [place] [id number] [facility] Sodium [Moles/Vol] 136 mmol/L Normal 136-145 [facility] Comment on above: Order Comment: Reaso n for Exam Hyperlipidemia;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 Reason for Exam Gout Performed By: #### T SH3, LDLD, CMP, URIC, LIPID #### [facility] [address] [place] [id number] [place] Urea nitrogen [Mass/Vol] 15 mg/dL Normal 7-25 [facility] Comment on above: Order Comment: Reaso n for Exam Hyperlipidemia;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 Reason for Exam Gout Performed By: #### T SH3, LDLD, CMP, URIC, LIPID #### [facility] [address] [place] [id number] [place] Creatinine [Mass/volume] in Serum or PlasmaOrdered By: Jenaro Lynch on 09-27-2022 Creatinine [Mass/Vol] 1.84 mg/dL 0.70-1.30 [facility] Eosinophils Auto (Bld) [#/Vo l]Ordered By: Jenaro Lynch on 09-27-2022 Eosinophils (Bld) [#/Vol] 0.7 10*3/uL 0.0-0.45 [facility] Eosinophils/100 WBC Auto (Bl d)Ordered By: Jenaro Lynch on 09-27-2022 Eosinophils/100 WBC (Bld) 5.9 % . [facility] Erythrocyte distribution wid th Auto (RBC) [Ratio]Ordered By: Jenaro Lynch on 09-27-2022 Erythrocyte distribution width (RBC) [Ratio] 16.0 % 12.0-14.8 [facility] Globulin Calc (S) [Mass/Vol] Ordered By: Jenaro Lynch on 09-27-2022 Globulin (S) [Mass/Vol] 2.9 g/dL [facility] Glucose [Mass/volume] in Ser um or PlasmaOrdered By: Jenaro Lynch on 09-27-2022 Glucose [Mass/Vol] 225 mg/dL 70-100 [facility] Comment on above: ADA recommended refe rence rangeRandom Glucose Reference Range is dependent on time and content of last meal. Glucose of more than 200 mg/dL in a nonstressed, ambulatory subject supports the diagnosis of Diabetes Mellitus. Hematocrit Auto (Bld) [Volum e fraction]Ordered By: Jenaro Lynch on 09-27-2022 Hematocrit (Bld) [Volume fraction] 41.0 % 38.8-50.0 [facility] Hemoglobin [Mass/volume] in BloodOrdered By: Jenaro Lynch on 09-27-2022 Hemoglobin (Bld) [Mass/Vol] 13.2 g/dL 13.0-17.0 [facility] LDL Cholesterol Measuredon 0 09-27-2022 LDL Cholesterol Measured 38 mg/dL Normal 0-100 [facility] Comment on above: Order Comment: [...] #### T SH3, LDLD, CMP, URIC, LIPID ####[facility] [id number] Leukocytes [#/volume] correc jorge for nucleated erythrocytes in Blood by Automated counOrdered By: Jenaro Lynch on 09-27-2022 WBC corrected for nucl RBC Auto (Bld) [#/Vol] 12.4 10*3/uL 4.1-10.5 [facility] Lipid Panelon 09-27-2022 Cholesterol [Mass/Vol] 104 mg/dL Low 140-200 [facility] Comment on above: Order Comment: Reaso n for Exam Hyperlipidemia;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 Reason for Exam Gout Result Comment: Chol less than 200 mg/dl low risk Chol 201-239 mg/dl borderline risk Chol 240 mg/dl and greater high risk Performed By: #### T SH3, LDLD, CMP, URIC, LIPID #### [facility] [address] Cholesterol in HDL [Mass/Vol] 21 mg/dL Low 29-71 [facility] Comment on above: Order Comment: Reaso n for Exam Hyperlipidemia;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 Reason for Exam Gout Result Comment: HDL CHOL ATP-III CLASSIFICATION Cardiovascular Risk HDL > or equal to 60 mg/dL LOW HDL < 40 mg/dL HIGH Performed By: #### T SH3, LDLD, CMP, URIC, LIPID #### [facility] [address] [place] [id number] [facility] Cholesterol.total/Chol esterol in HDL [Mass ratio] 5.0 {ratio} Normal <5.0 [facility] Comment on above: Order Comment: Reaso n for Exam Hyperlipidemia;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 Reason for Exam Gout Performed By: #### T SH3, LDLD, CMP, URIC, LIPID #### [facility] [address] LDL Cholesterol,Calculated Not performed Normal 0-100 [facility] Comment on above: Order Comment: Reaso n for Exam Hyperlipidemia;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 Reason for Exam Gout Performed By: #### T SH3, LDLD, CMP, URIC, LIPID #### [facility] [address] Triglyceride w/Reflex 497 mg/dL High 0-149 [facility] Comment on above: Order Comment: Reaso [...] T SH3, LDLD, CMP, URIC, LIPID #### [facility] [address] [place] [id number] [facility] VLDL CHOLESTEROL 99 mg/dL Normal [facility] Comment on above: Order Comment: Reaso n for Exam Hyperlipidemia;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 Reason for Exam Gout Performed By: #### T SH3, LDLD, CMP, URIC, LIPID #### [facility] [address] [place] [id number] [facility] Lymphocytes Auto (Bld) [#/Vo l]Ordered By: Jenaro Lynch on 09-27-2022 Lymphocytes (Bld) [#/Vol] 2.3 10*3/uL 1.00-4.8 [facility] Lymphocytes/100 WBC Auto (Bl d)Ordered By: Jenaro Lynch on 09-27-2022 Lymphocytes/100 WBC (Bld) 18.2 % . [facility] MCH Auto (RBC) [Entitic mass ]Ordered By: Jenaro Lynch on 09-27-2022 MCH (RBC) [Entitic mass] 23.9 pg 27.5-35.2 [facility] MCHC Auto (RBC) [Mass/Vol]Or dered By: Jenaro Lynch on 09-27-2022 MCHC (RBC) [Mass/Vol] 32.2 g/dL 32.5-35.6 [facility] MCV Auto (RBC) [Entitic vol] Ordered By: Jenaro Lynch on 09-27-2022 MCV (RBC) [Entitic vol] 74.3 fL 83.5-101 [facility] Monocytes Auto (Bld) [#/Vol] Ordered By: Jenaro Lynch on 09-27-2022 Monocytes (Bld) [#/Vol] 1.0 10*3/uL 0.0-0.8 [facility] Monocytes/100 WBC Auto (Bld) Ordered By: Jenaro Lynch on 09-27-2022 Monocytes/100 WBC (Bld) 7.9 % . [facility] Neutrophils Auto (Bld) [#/Vo l]Ordered By: Jenaro Lynch on 09-27-2022 Neutrophils (Bld) [#/Vol] 8.3 10*3/uL 1.8-7.7 [facility] Neutrophils/100 WBC Auto (Bl d)Ordered By: Jenaro Lynch on 09-27-2022 Neutrophils/100 WBC (Bld) 66.9 % . [facility] No Panel InformationOrdered By: Jenaro Lynch on 09-27-2022 Estimated GFR (CKD-EPI) 42.232 mL/Min [facility] Creatinine Clearance (Chem N/A [facility] Nucleated erythrocytes [Pres ence] in Blood by Automated countOrdered By: Jenaro Lynch on 09-27-2022 Nucleated RBC Auto Ql (Bld) 0.1 /100{WBC} 0-0.5 [facility] Platelet mean volume Auto (B ld) [Entitic vol]Ordered By: Jenaro Lynch on 09-27-2022 Platelet mean volume (Bld) [Entitic vol] 9.1 fL 6.6-10.1 [facility] Platelets Auto (Bld) [#/Vol] Ordered By: Jenaro Lynch on 09-27-2022 Platelets (Bld) [#/Vol] 209 10*3/uL 150-450 [facility] Potassium [Moles/volume] in Serum or PlasmaOrdered By: Jenaro Lynch on 09-27-2022 Potassium [Moles/Vol] 4.3 mmol/L 3.5-5.1 [facility] Protein [Mass/volume] in Ser um or PlasmaOrdered By: Jenaro Lynch on 09-27-2022 Protein [Mass/Vol] 7.0 g/dL 6.4-8.9 [facility] RBC Auto (Bld) [#/Vol]Ordere d By: Jenaro Lynch on 09-27-2022 RBC (Bld) [#/Vol] 5.52 10*6/uL 3.90-5.60 [facility] Serum or plasma albumin/glob ulin mass ratioOrdered By: Jenaro Lynch on 09-27-2022 Albumin/Globulin [Mass ratio] 1.4 {ratio} [facility] Serum or plasma anion gap de terminationOrdered By: Jenaro Lynch on 09-27-2022 Anion gap [Moles/Vol] 14.1 mmol/L 6.0-15.0 [facility] Serum or plasma high density lipoprotein (HDL) cholesterol measurementOrdered By: Jenaro Lynch on 09-27-2022 Cholesterol in HDL [Mass/Vol] 21 mg/dL 29-71 [facility] Comment on above: HDL CHOL ATP-III CLA SSIFICATION Cardiovascular RiskHDL > or equal to 60 mg/dL LOWHDL < 40 mg/dL HIGH Serum or plasma total choles terol/high density lipoprotein (HDL) cholesterol mass ratOrdered By: Jenaro Lynch on 09-27-2022 Cholesterol.total/Chol esterol in HDL [Mass ratio] 5.0 {ratio} <5.0 [facility] Sodium [Moles/volume] in Ser um or PlasmaOrdered By: Jenaro Lynch on 09-27-2022 Sodium [Moles/Vol] 136 mmol/L 136-145 [facility] Thyroid Stimulating Hormoneo n 09-27-2022 TSH Qn 3.62 m[IU]/L Normal 0.45-5.33 [facility] Comment on above: Order Comment: Reaso n for Exam Hyperlipidemia;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 Reason for Exam Gout Result Comment: PERF ORMED BY: [facility] [address] [place] [address] PATHOLOGIST [employer] CLIFFORD LOBATO M.D. Performed By: #### T SH3, LDLD, CMP, URIC, LIPID #### [facility] [address] Order Comment: Reaso n for Exam Hyperlipidemia;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 Reason for Exam Gout Performed By: #### T SH3, LDLD, CMP, URIC, LIPID ####[facility] [id number] Thyrotropin [Units/volume] i n Serum or PlasmaOrdered By: Jenaro Lynch on 09-27-2022 TSH Qn 3.62 m[IU]/L 0.45-5.33 [facility] Triglyceride [Mass/volume] i n Serum or PlasmaOrdered By: Jenaro Lynch on 09-27-2022 Triglyceride [Mass/Vol] 497 mg/dL 0-149 [facility] Comment on above: If the triglyceride result [...] on 09-27-2022 Urate [Mass/Vol] 6.2 mg/dL 2.4-7.6 [facility] Urea nitrogen [Mass/volume] in Serum or PlasmaOrdered By: Jenaro Lynch on 09-27-2022 Urea nitrogen [Mass/Vol] 15 mg/dL 12-27 [facility] Uric Acidon 09-27-2022 Urate [Mass/Vol] 6.2 mg/dL Normal 2.4-7.6 [facility] Comment on above: Order Comment: Reaso n for Exam Hyperlipidemia;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 Reason for Exam Gout Performed By: #### T SH3, LDLD, CMP, URIC, LIPID #### [address] WBC Auto (Bld) [#/Vol]Ordere d By: Jenaro Lynch on 09-27-2022 WBC (Bld) [#/Vol] 12.4 10*3/uL 4.1-10.5 [facility] MR head/brain wo conon 09-03 MR head/brain wo con [facility] [place] [address] [place] [address] MRI Report Signed Patient: Solomon Feldman SR MR#: [id number] : 1965 Acct:[id number] Age/Sex: 57 / M ADM Date: 09/02/22 Loc: MR Room: Type: [facility] Attending Dr: Shana Mclaughlin PA-C Copies to: Shana Mclaughlin PA-C Ordering Provider: Shana Mcluaghlin PA-C Date of Service: 09/02/22 MR/MR head/brain [...] Marks Jr., D.OMary09/03/2022 8:37 AM Dictation Location: [facility]--15 Transcribed By: [facility] 09/03/22 08 Dictated By: Negro Marks Jr, DO 09/03/22 08 Signed By: 09/03/22 0837 Normal [facility] A1C HEMOGLOBINon 02-15-2022 HbA1c (Bld) [Mass fraction] % [employer] [facility] Other HbA1c (Bld) [Mass fraction]o n 02-15-2022 A1C HEMOGLOBIN [employer] Other Tobacco Screening.on 022 Adult depression screening assessment No [facility] [facility] [address] DO Work Phone: Tobacco use status [facility] b) No [facility] [facility] [address] DO Work Phone: A1C HEMOGLOBINon 07-27-2021 HbA1c (Bld) [Mass fraction] 11.8 % [employer] [facility] Other HbA1c (Bld) [Mass fraction]o n 07-27-2021 A1C HEMOGLOBIN [employer] Other Vital Signs Date Time Vital Sign Value Performing Clinician Facility 07-12-2023 18:03-0500 Diastolic blood pressure 73 mm[Hg] DO Jenaro Fraustos Work Phone: [facility] 07-12-2023 18:03-0500 Heart rate 76 /min DO Jenaro Jetts Work Phone: [facility] 07-12-2023 18:03-0500 Respiratory rate 20 /min DO Jenaro Kuns Work Phone: [facility] 07-12-2023 18:03-0500 SaO2% (BldA) [Mass fraction] 98 % DO Jenaro Kuns Work Phone: [facility] 07-12-2023 18:03-0500 Systolic blood pressure 125 mm[Hg] DO Jenaro Kuns Work Phone: [facility] 07-12-2023 16:15-0500 Body height 182.88 cm DO Jenaro Lynch Work Phone: [facility] 07-12-2023 16:15-0500 Body temperature 98.9 [degF] DO Jenaro Lynch Work Phone: [facility] 07-12-2023 16:15-0500 Body weight 99.25 kg DO Jenarogorge Lynch Work Phone: [facility] 06-02-2023 10:56-0500 Blood Pressure Location Yeyo SILVESTRE [facility] 06-02-2023 10:56-0500 Body temperature 96.98 [degF] Yeyo SILVESTRE [facility] 06-02-2023 10:56-0500 Diastolic blood pressure 84 mm[Hg] Yeyo SILVESTRE [facility] 06-02-2023 10:56-0500 Heart rate 68 /min Yeyo SILVESTRE [facility] 06-02-2023 10:56-0500 Systolic blood pressure 124 mm[Hg] Yeyo SILVESTRE [facility] 04-06-2023 13:15-0400 Body height 180.34 cm Jenaro Lynch Other [employer] [facility] Other 04-06-2023 13:15-0400 Body mass index (BMI) [Ratio] 29.43 kg/m2 Jenaro Lynch Other [employer] Other 04-06-2023 13:15-0400 Body weight 95.71 kg Jenaro Lynch Other [employer] Other 04-06-2023 13:15-0400 Diastolic blood pressure 70 mm[Hg] Jenaro Rory Other [employer] Other 04-06-2023 13:15-0400 Respiratory rate 18 /min Jenaro Rory Other [employer] Other 04-06-2023 13:15-0400 SaO2% (BldA) [Mass fraction] 97 % Jenaro Jettjoe Other [employer] Other 04-06-2023 13:15-0400 Systolic blood pressure 100 mm[Hg] Jenaro Lynch Other [employer] Other 03-15-2023 08:30-0400 Body height 180.34 cm Jenarogorge Fraustojoe Other [employer] Other 03-15-2023 08:30-0400 Body mass index (BMI) [Ratio] 29.01 kg/m2 Jenaro Rory Other [employer] Other 03-15-2023 08:30-0400 Body weight 94.35 kg Jenaro Rory Other [employer] Other 03-15-2023 08:30-0400 Diastolic blood pressure 62 mm[Hg] Jenaro Lynch Other [employer] Other 03-15-2023 08:30-0400 Respiratory rate 16 /min Jenaro Lynch Other [employer] Other 03-15-2023 08:30-0400 SaO2% (BldA) [Mass fraction] 97 % Jenaro Lynch Other [employer] Other 03-15-2023 08:30-0400 Systolic blood pressure 88 mm[Hg] Jenaro Lynch Other [facility] [employer] Other 02-15-2023 10:04-0400 Body height 182.88 cm Jenaro Guerra Rory Work Phone: [facility] 250 DO Work Phone: 02-15-2023 10:04-0400 Body mass index (BMI) [Ratio] 28.62 kg/m2 Jenaro Fraustojoe Work Phone: [facility] DO Work Phone: 02-15-2023 10:04-0400 Body surface area Derived from formula 2.18 m2 Jenaro Lynch Work Phone: [facility] 250 DO Work Phone: 02-15-2023 10:04-0400 Body weight 95.71 kg Jenaro Mari Lynch Work Phone: [facility] 250 DO Work Phone: 02-15-2023 10:04-0400 Diastolic blood pressure 70 mm[Hg] Jenaro Guerra Rory Work Phone: [facility] [address] DO Work Phone: 02-15-2023 10:04-0400 Heart rate 76 /min Jenaro Guerra Rory Work Phone: [facility] [facility] DO Work Phone: 02-15-2023 10:04-0400 Systolic blood pressure 102 mm[Hg] Jenaro Fraustojoe Work Phone: [facility] [address] DO Work Phone: 01-30-2023 10:23-0400 Blood Pressure Location Yeyo SILVESTRE [facility] 01-30-2023 10:23-0400 Diastolic blood pressure 74 mm[Hg] Yeyo SILVESTRE [facility] 01-30-2023 10:23-0400 Heart rate 68 /min Yeyo SILVESTRE [facility] 01-30-2023 10:23-0400 Respiratory rate 16 /min Yeyo SILVESTRE [facility] 01-30-2023 10:23-0400 Systolic blood pressure 130 mm[Hg] Yeyo SILVESTRE [facility] 01-11-2023 15:08-0400 Body height 180.34 cm Jenaro Lynch Work Phone: [facility] [place] 600 DO Work Phone: 01-11-2023 15:08-0400 Body mass index (BMI) [Ratio] 30.13 kg/m2 Jenaro Lynch Work Phone: [facility] [place] 600 DO Work Phone: 01-11-2023 15:08-0400 Body surface area Derived from formula 2.18 m2 Jenaro Lynch Work Phone: [facility] [place] 600 DO Work Phone: 01-11-2023 15:08-0400 Body weight 97.98 kg Jenaro Lynch Work Phone: [facility] [place] 600 DO Work Phone: 01-11-2023 15:08-0400 Diastolic blood pressure 86 mm[Hg] Jenaro Lynch Work Phone: [facility] [place] 600 DO Work Phone: 01-11-2023 15:08-0400 Heart rate 74 /min Jenaro Lynch Work Phone: [facility] [place] 600 DO Work Phone: 01-11-2023 15:08-0400 Systolic blood pressure 122 mm[Hg] Jenaro Lynch Work Phone: [facility] [place] 600 DO Work Phone: 12-01-2022 12:45-0400 Body height 180.34 cm Jenaro Lynch Other [employer] Other 12-01-2022 12:45-0400 Body mass index (BMI) [Ratio] 29.73 kg/m2 Jenaro Lynch Other [employer] Other 12-01-2022 12:45-0400 Body weight 96.71 kg Jenaro Lynch Other [employer] Other 12-01-2022 12:45-0400 Diastolic blood pressure 70 mm[Hg] Jenaro Lynch Other [employer] Other 12-01-2022 12:45-0400 Respiratory rate 18 /min Jenaro Lynch Other [employer] Other 12-01-2022 12:45-0400 SaO2% (BldA) [Mass fraction] 94 % Jenaro Lynch Other [employer] Other 12-01-2022 12:45-0400 Systolic blood pressure 122 mm[Hg] Jenaro Lynch Other [employer] Other 11-23-2022 11:38-0400 Blood Pressure Location Yeyo SILVESTRE [facility] 11-23-2022 11:38-0400 Diastolic blood pressure 85 mm[Hg] Yeyo SILVESTRE [facility] 11-23-2022 11:38-0400 Heart rate 76 /min Yeyo SILVESTRE [facility] 11-23-2022 11:38-0400 Systolic blood pressure 130 mm[Hg] Yeyo SILVESTRE [facility] 07-04-2022 10:30-0500 Body height 180.34 cm Jenaro Lynch Other [employer] Other 07-04-2022 10:30-0500 Body mass index (BMI) [Ratio] 29.43 kg/m2 Jenaro Lynch Other [employer] [employer] Other 07-04-2022 10:30-0500 Body weight 95.71 kg Jenaro Lynch Other [employer] Other 07-04-2022 10:30-0500 Diastolic blood pressure 86 mm[Hg] Jenaro Lynch Other [employer] Other 07-04-2022 10:30-0500 Respiratory rate 16 /min Jenaro Lynch Other [employer] Other 07-04-2022 10:30-0500 Systolic blood pressure 146 mm[Hg] Jenaro Lynch Other [employer] Other 02-15-2022 13:45-0400 Body height 180.34 cm Jenaro Lynch Other [employer] Other 02-15-2022 13:45-0400 Body mass index (BMI) [Ratio] 30.12 kg/m2 Jenaro Lynch Other [employer] Other 02-15-2022 13:45-0400 Body weight 97.98 kg Jenaro Lynch Other [employer] Other 02-15-2022 13:45-0400 Diastolic blood pressure 62 mm[Hg] Jenaro Jettjoe Other [employer] Other 02-15-2022 13:45-0400 Respiratory rate 16 /min Jenaro Fraustojoe Other [employer] Other 02-15-2022 13:45-0400 SaO2% (BldA) [Mass fraction] 96 % Jenaro Fraustojoe Other [employer] Other 02-15-2022 13:45-0400 Systolic blood pressure 100 mm[Hg] Jenaro Jettjoe Other [employer] Other 10-26-2021 10:01-0400 Body height 180.34 cm Jenaro Guerra Rory Work Phone: [facility] [employer] 250 DO Work Phone: 10-26-2021 10:01-0400 Body mass index (BMI) [Ratio] 29.99 kg/m2 Jenaro Mari Lynch Work Phone: [facility] [employer] 250 DO Work Phone: 10-26-2021 10:01-0400 Body surface area Derived from formula 2.17 m2 Jenaro Fraustojoe Work Phone: [facility] [employer] 250 DO Work Phone: 10-26-2021 10:01-0400 Body weight 97.52 kg Jenaro Lynch Work Phone: [facility] 250 DO Work Phone: 10-26-2021 10:01-0400 Diastolic blood pressure 70 mm[Hg] Jenaro Lynch Work Phone: [facility] 250 DO Work Phone: 10-26-2021 10:01-0400 Heart rate 68 /min Jenaro Lynch Work Phone: [facility] 250 DO Work Phone: 10-26-2021 10:01-0400 Systolic blood pressure 104 mm[Hg] Jenaro Lynch Work Phone: [facility] 250 DO Work Phone: 10-19-2021 12:20-0400 Body height 180.34 cm Amina [employer] Other [facility] [employer] Other 10-19-2021 12:20-0400 Body mass index (BMI) [Ratio] 30.65 kg/m2 Amina [employer] Other [facility] [employer] Other 10-19-2021 12:20-0400 Body temperature 96.8 [degF] Amina [employer] Other [facility] [employer] Other 10-19-2021 12:20-0400 Body weight 99.7 kg Amina [email or web address] Other [employer] Other 10-19-2021 12:20-0400 Diastolic blood pressure 71 mm[Hg] Amina [employer] Other [employer] Other 10-19-2021 12:20-0400 Respiratory rate 18 /min Amina Gracia Other [employer] Other 10-19-2021 12:20-0400 SaO2% (BldA) [Mass fraction] 98 % Amina Fagan Other [employer] Other 10-19-2021 12:20-0400 Systolic blood pressure 111 mm[Hg] Amina Fagan Other [employer] Other 07-27-2021 14:00-0500 Body height 180.34 cm Jenaro Lynch Other [employer] Other 07-27-2021 14:00-0500 Body mass index (BMI) [Ratio] 30.4 kg/m2 Jenaro Lynch Other [employer] Other 07-27-2021 14:00-0500 Body weight 98.88 kg Jenaro Lynch Other [employer] Other 07-27-2021 14:00-0500 Diastolic blood pressure 76 mm[Hg] Jenaro Lynch Other [employer] Other 07-27-2021 14:00-0500 Respiratory rate 18 /min Jenaro Lynch Other [employer] Other 07-27-2021 14:00-0500 SaO2% (BldA) [Mass fraction] 98 % Jenaro Lynch Other [employer] Other 07-27-2021 14:00-0500 Systolic blood pressure 112 mm[Hg] Jenaro Lycnh Other [employer] Other Encounters Encounter Date Encounter Type Care Provider Facility Start: 09-08-2023 ambulatory Yeyo SILVESTRE Facili ty:[facility] Start: 07-31-2023 ambulatory Shana Caraballomaggie Facility:[facility] Start: 07-12-2023 End: 07-12-2023 Emergency department patient visit Jenarogorge Fraustojoe Facility:[facility] Start: 07-12-2023 End: 07-12-2023 Emergency department patient visit DO Jenarogorge Lynch Work Phone: [facility] Work Phone: Start: 07-07-2023 End: 07-07-2023 ambulatory Jenaro Fraustojoe Other [employer] Other Start: 07-07-2023 Telephone encounter Jenaro Lynch [facility] Start: 07-03-2023 End: 07-04-2023 ambulatory Yeyo SILVESTRE Facility:[facility] Start: 06-26-2023 End: 06-26-2023 ambulatory Jenaro Lynch Other [employer] Other Start: 06-26-2023 Telephone encounter Jenaro Lynch [facility] Start: 06-02-2023 End: 06-03-2023 ambulatory Yeyo SILVESTRE Facility:[facility] Start: 06-02-2023 End: 06-02-2023 Patient encounter procedure Yeyo SILVESTRE [facility] Start: 05-16-2023 End: 05-16-2023 ambulatory Jenaro Lynch Other [employer] Other Start: 05-16-2023 Telephone encounter Jenaro Lynch [facility] Start: 05-03-2023 End: 05-04-2023 ambulatory Yeyo SILVESTRE Facility:[facility] Start: 05-03-2023 End: 05-03-2023 Patient encounter procedure Yeyo SILVESTRE [facility] Start: 04-28-2023 End: 04-28-2023 ambulatory Jenaro Lynch Other [employer] Other Start: 04-28-2023 Telephone encounter Jenarogorge Lynch [facility] Start: 04-18-2023 End: 04-19-2023 ambulatory Yeyo SILVESTRE Facility:[facility] Start: 04-18-2023 End: 04-18-2023 Patient encounter procedure Yeyo R SOLEDAD [facility] [employer] Start: 04-17-2023 ambulatory Yeyo Ruizi ty:[facility] [place] Start: 04-13-2023 End: 04-14-2023 ambulatory Yeyo SILVESTRE Facility:[id number] Start: 04-11-2023 End: 04-11-2023 ambulatory Jenarogorge Lynch Other [employer] Other Start: 04-11-2023 Telephone encounter Jenarogorge Lynch [facility] Start: 04-06-2023 End: 04-06-2023 ambulatory Jenarogorge Lynch Other [employer] Other Start: 04-06-2023 Encounter for other preprocedural examination Jenaro Jettjoe [facility] Start: 04-06-2023 Office outpatient vi sit 25 minutes Jenaro Lynch [facility] Start: 03-28-2023 End: 03-28-2023 ambulatory Jenaro Rory Other [employer] Other Start: 03-28-2023 Telephone encounter Jenarogorge Lynch [facility] Start: 03-20-2023 ambulatory Yeyo SILVESTRE Facili ty:[facility] Start: 03-16-2023 ambulatory Yeyo SILVESTRE Facili ty:[id number] Start: 03-15-2023 End: 03-15-2023 ambulatory Jenaro Lynch Other [facility] Other Start: 03-15-2023 Office outpatient vi sit 25 minutes Jenaro Lynch [facility] Start: 03-10-2023 End: 03-10-2023 ambulatory Jenaro Lynch Other [facility] [employer] Other Start: 03-10-2023 Telephone encounter Jenaro Lynch [facility] Start: 02-15-2023 Office outpatient vi sit 15 minutes Jenaro Lynch Work Phone: [facility] 250 DO Work Phone: Start: 02-15-2023 ambulatory Dolores Feldman Facility:[id number] Start: 02-14-2023 End: 02-15-2023 ambulatory Yyeo SILVESTRE Facility:[facility] Start: 02-14-2023 End: 02-14-2023 Patient encounter procedure Yeyo SILVESTRE [facility] Start: 02-08-2023 End: 02-09-2023 ambulatory Yeyo SILVESTRE Facility:[facility] Start: 02-08-2023 End: 02-08-2023 Patient encounter procedure Yeyo SILVESTRE [facility] Start: 01-30-2023 End: 01-31-2023 ambulatory Yeyo SILVESTRE Facility:[facility] Start: 01-30-2023 End: 01-30-2023 Patient encounter procedure Yeyo SILVESTRE [facility] Start: 01-25-[address] Jenaro Lynch Facility:[id number] Start: 01-17-2023 End: 01-17-2023 ambulatory Jenaro Lynch Other [employer] Other Start: 01-17-2023 Telephone encounter Jenaro Lynch [facility] Start: 01-11-2023 Office outpatient vi sit 25 minutes Jenaro Lynch Work Phone: [facility] 600 DO Work Phone: Start: 01-11-2023 ambulatory Dolores Feldman Facility:[id number] Start: 12-28-2022 End: 12-29-2022 ambulatory Yeyoneel SILVESTRE Facility:[facility] Start: 12-28-2022 End: 12-28-2022 Patient encounter procedure Yeyo R SILVESTRE [facility] Start: 12-21-2022 ambulatory Yeyo Viktoria SILVESTRE Facili ty:[facility] Start: 12-01-2022 End: 12-01-2022 ambulatory Jenaro Lynch Other [employer] Other Start: 12-01-2022 Office outpatient vi sit 25 minutes Jenaro Lynch [facility] Start: 11-30-2022 ambulatory Yeyo SILVESTRE Facility :[facility] Start: 11-23-2022 End: 11-24-2022 ambulatory Yeyo R SOLEDAD Facility:[facility] Start: 11-23-2022 End: 11-23-2022 Patient encounter procedure Yeyo R SOLEDAD [facility] Start: 10-07-2022 End: 10-07-2022 ambulatory Jenaro Lynch Other [employer] Other Start: 10-07-2022 Telephone encounter Jenaro Lynch [facility] Start: 09-27-2022 End: 09-27-2022 ambulatory Jenaro Lynch - [facility] Facility:[facility] Start: 09-27-2022 End: 09-27-2022 ambulatory DO Jenaro Lynch Work Phone: [facility] Work Phone: Start: 09-27-2022 End: 09-27-2022 Patient encounter procedure DO Jenaro Lynch Work Phone: [facility] [place] Work Phone: Start: 09-21-2022 End: 09-21-2022 ambulatory Jenaro Lynch Other [employer] Other Start: 09-21-2022 Telephone encounter Jenaro Lynch [facility] Start: 09-14-2022 End: 09-14-2022 ambulatory Jenaro Lynch Other [employer] Other Start: 09-14-2022 Telephone encounter Jenaro Lynch [facility] Start: 09-02-2022 End: 09-02-2022 ambulatory Shana Ilyae Facility:[facility] Start: 09-02-2022 End: 09-02-2022 Patient encounter procedure DO Jenaro Lynch Work Phone: [facility] [place] Work Phone: Start: 08-25-2022 End: 08-25-2022 ambulatory Ton Mapus Other [employer] Other Start: 08-25-2022 Telephone encounter Doris Mapus [facility] Start: 08-22-2022 End: 08-22-2022 ambulatory Jenaro Lynch Other [employer] Other Start: 08-22-2022 Telephone encounter Jenaro Lynch [facility] Start: 08-05-2022 End: 08-05-2022 ambulatory Jenaro Lynch Other [employer] Other Start: 08-05-2022 Telephone encounter Jenaro Lynch [facility] Start: 08-04-2022 End: 08-04-2022 ambulatory Jenaro Jettjoe Other [employer] Other Start: 08-04-2022 Telephone encounter Jenaro Lynch [facility] Start: 07-28-2022 End: 07-28-2022 ambulatory Jenarogorge Lynch Other [employer] Other Start: 07-28-2022 Telephone encounter Jenarogorge Lynch [facility] Start: 07-25-2022 End: 07-25-2022 ambulatory Jenaro Jettoje Other [employer] Other Start: 07-25-2022 Nursing evaluation o f patient and report Jenaro Jettjoe [facility] Start: 07-19-2022 End: 07-19-2022 ambulatory Jenarogorge Lynch Other [employer] Other Start: 07-19-2022 Telephone encounter Jenaro Lynch [facility] Start: 07-15-2022 End: 07-15-2022 ambulatory Jenaro Lynch Other [employer] Other Start: 07-15-2022 Telephone encounter Jenaro Jettjoe [facility] Start: 07-13-2022 End: 07-13-2022 ambulatory Jenarogorge Lynch Other [employer] Other Start: 07-13-2022 Nursing evaluation o f patient and report Jenaro Lynch [facility] Start: 07-12-[address] Raulito Kennedy II Facility: Start: 07-05-2022 End: 07-05-2022 ambulatory Jenaro Jettjoe Other [employer] Other Start: 07-05-2022 Telephone encounter Jenaro Lynch [facility] Start: 07-05-2022 Rx Renewal Jenaro Fraustojoe Work Phone: [facility] 250 DO Work Phone: Start: 07-04-2022 End: 07-04-2022 ambulatory Jenaro Lynch Other [employer] Other Start: 07-04-2022 Office outpatient vi sit 25 minutes Jenaro Lynch [facility] Start: 06-30-2022 End: 06-30-2022 ambulatory Jenaro Lynch Other [employer] Other Start: 06-30-2022 Telephone encounter Jenaro Lynch [facility] Start: 05-25-2022 End: 05-25-2022 ambulatory Jenaro Lynch Other [employer] Other Start: 05-25-2022 Telephone encounter Jenaro Lynch [facility] Start: 04-25-2022 End: 04-25-2022 ambulatory Jenaro Lynch Other [employer] Other Start: 04-25-2022 Telephone encounter Jenaro Lynch [facility] Start: 04-19-2022 End: 04-19-2022 ambulatory Jenaro Lynch Other [employer] Other Start: 04-19-2022 Telephone encounter Jenaro Lynch [facility] Start: 03-22-2022 End: 03-22-2022 ambulatory Jenaro Lynch Other [employer] Other Start: 03-22-2022 Telephone encounter Jenaro Lynch [facility] Start: 03-01-2022 End: 03-01-2022 ambulatory Jenaro Lynch Other [employer] Other Start: 03-01-2022 Telephone encounter Jenaro Lynch [facility] Start: 02-18-2022 End: 02-18-2022 ambulatory Jenaro Fraustojoe Other [employer] Other Start: 02-18-2022 Telephone encounter Jenaro Lynch [facility] Start: 02-15-2022 End: 02-15-2022 ambulatory Verona Whaley Other [employer] Other Start: 02-15-2022 Office outpatient vi sit 25 minutes Jenaro Lycnh [facility] Start: 02-15-2022 Telephone encounter Veronacharlie Moenazia [facility] Start: 01-21-2022 End: 01-21-2022 ambulatory Jenaro Lynch Other [employer] Other Start: 01-21-2022 Telephone encounter Jenaro Rory [facility] Start: 01-19-2022 End: 01-19-2022 ambulatory Jenaro Lynch Other [employer] Other Start: 01-19-2022 Telephone encounter Jenaro Rory [facility] Start: 01-13-2022 End: 01-13-2022 ambulatory Jenaro Lynch Other [employer] Other Start: 01-13-2022 Telephone encounter Jenaro Lynch [facility] Start: 12-23-2021 End: 12-23-2021 ambulatory Jenaro Lynch Other [employer] Other Start: 12-23-2021 Telephone encounter Jenaro Rory [facility] Start: 11-24-2021 End: 11-24-2021 ambulatory Jenaro Lynch Other [employer] Other Start: 11-24-2021 Telephone encounter Jenaro Lynch [facility] Family [facility] Start: 11-03-2021 Rx Renewal Jenaro Lynch Work Phone: [facility] 250 DO Work Phone: Start: 10-26-2021 Office outpatient vi sit 25 minutes Jenaro Lynch Work Phone: [facility] 250 DO Work Phone: Start: 10-25-2021 End: 10-25-2021 ambulatory Jenaro Lynch Other [employer] Other Start: 10-25-2021 Telephone encounter [facility] Start: 10-19-2021 End: 10-19-2021 ambulatory Aziz Bakhous Other [employer] Other Start: 10-19-2021 Office outpatient vi sit 25 minutes Aziz Bakhous [facility] Start: 10-18-2021 End: 10-18-2021 ambulatory Aziz Bakhous Other [employer] Other Start: 10-18-2021 Telephone encounter Azjuan Bakhous [facility] Start: 10-12-2021 End: 10-13-2021 ambulatory DUARTE HENRY . Facility: Start: 10-08-2021 End: 10-08-2021 ambulatory Jenaro Lynch Other [employer] Other Start: 10-08-2021 Telephone encounter [facility] Start: 09-22-2021 End: 09-22-2021 ambulatory Jenaro Lynch Other [employer] Other Start: 09-22-2021 Telephone encounter [facility] Start: 09-21-2021 End: 09-21-2021 ambulatory Jenaro Lynch Other [employer] Other Start: 09-21-2021 Telephone encounter Jenaro Lynch [facility] Start: 08-09-2021 End: 08-09-2021 ambulatory Jenaro Lynch Other [employer] Other Start: 08-09-2021 Telephone encounter [facility] Start: 08-02-2021 End: 08-02-2021 ambulatory Jenaro Lynch Other [employer] Other Start: 08-02-2021 Telephone encounter [facility] Start: 07-27-2021 End: 07-27-2021 ambulatory Jenaro Lynch Other [employer] Other Start: 07-27-2021 Office outpatient vi sit 25 minutes Jenaro [facility] Start: 06-23-2021 End: 06-23-2021 ambulatory Jenaro Lynch Other [employer] Other Start: 06-23-2021 Telephone encounter Jenaro Lynch [facility] Start: 06-22-2021 Rx Renewal Jenaro Lynch Work Phone: [facility] 250 DO Work Phone: Start: 05-03-2021 End: 05-03-2021 ambulatory Jenaro Lynch Other [employer] Other Start: 05-03-2021 Telephone encounter [facility] Procedures Date Procedure Procedure Detail Performing Clinician [...] Raulito Kennedy, Status: Pen, Time: 2:40 PM -[facility] 250 DO Work Phone: Start: 07-12-2023 Duplex scan of lower limb veins US venous duplex LE BI [facility] Start: 07-12-2023 US Lower extremity v ein - bilateral [facility] Start: 07-12-2023 Duplex scan veins of upper limb US venous duplex UE LT [facility] Start: 07-12-2023 US Upper extremity v ein - left [facility] Start: 02-15-2023 FUV, Provider: Dolores Velazquez, Status: Pen, Time: 10:00 AM FUV, Provider: Dolores Velazquez, Status: Pen, Time: 10:00 AM -[facility] 600 DO Work Phone: Start: 01-25-2023 STRESS NUC, Provider : CHARISSE HHVI NUCLEAR 01,[id number], Status: Pen, Time: 8:30 AM STRESS NUC, Provider: CHARISSE HHVI NUCLEAR 01,[id number], Status: Pen, Time: 8:30 AM -[facility] 600 DO Work Phone: Start: 07-12-2022 FUV, Provider: Raulito Kennedy, Status: Pen, Time: 9:20 AM FUV, Provider: Raulito Kennedy, Status: Pen, Time: 9:20 AM [facility] 250 DO Work Phone: Start: 10-26-2021 FUV, Provider: Raulito Kennedy, Status: Pen, Time: 9:30 AM FUV, Provider: Raulito Kennedy, Status: Pen, Time: 9:30 AM [facility] 250 DO Work Phone: Patient Education Dependent Edema (DC) [facility] Work Phone: Patient referral [facility] Work Phone: Immunizations Immunization Date Immunization Notes Care Provider Sachin pettit 11-13-2020 Pfizer-BioNTech COVID-19 Vacc 30 MCG/0.3ML Intramuscular Suspension Jenaro Lynch Work Phone: [facility] 10-23-2020 Pfizer-BioNTech COVID-19 Vacc 30 MCG/0.3ML Intramuscular Suspension Jenaro Lynch Work Phone: [facility] 01-14-2019 influenza, seasonal, injectable Jenaro Lynch Other [facility] Other 01-14-2019 influenza virus vaccine, unspecified formulation Yeyo SILVESTRE [facility] 04-02-2018 influenza virus vaccine, unspecified formulation Yeyo SILVESTRE [facility] 04-02-2018 influenza, injectabl e, quadrivalent, preservative free DO Jenaro Lynch Work Phone: [facility] 03-05-2018 influenza virus vaccine, unspecified formulation Jenaro Lynch Work Phone: [facility] 250 DO Work Phone: 03-05-2018 pneumococcal polysaccharide vaccine, 23 valent Jenaro Lynch Work Phone: [facility] 250 DO Work Phone: 03-07-2016 influenza virus vaccine, unspecified formulation Yeyo SILVESTRE [facility] 03-07-2016 influenza, injectabl e, quadrivalent, preservative free Jenaro Lynch Work Phone: [facility] 600 DO Work Phone: 02-22-2016 pneumococcal polysaccharide vaccine, 23 valent Jenaro Lynch Work Phone: [facility] Payers Date Payer Category Payer Self-pay [id number] 2022 Medicaid [id number] 1965 Unknown [id number] 2.16.84 [id number] 1965 Unknown [id number] 2.16.8 40.1.376700.3.579.2.1068 1965 Unknown [id number] 2.16. 840.1.770464.3.579.2.356 1965 Unknown [id number] 2.16. 840.1.543532.3.579.2.356 1965 Unknown [id number] 2.16. 840.1.784566.3.579.2.356 1965 Unknown [id number] 2.16.8 40.1.764896.3.579.2.727 1965 Unknown [id number] 2.16.8 40.1.313674.3.579.2.72 1965 Unknown [id number] 2.16.8 40.1.240278.3.579.2.727 1965 Unknown [id number] 2.16.8 40.1.851904.3.579.2.72 1965 Unknown [id number] 2.16.8 40.1.434568.3.579.2.727 1965 Unknown [id number] 2.16.8 40.1.012679.3.579.2.72 1965 Unknown [id number] 2.16.8 40.1.013199.3.579.2.727 1965 Unknown [id number] 2.16.8 40.1.527988.3.579.2.727 1965 Unknown [id number] 2.16.8 40.1.346799.3.579.2.727 1965 Unknown [id number] 2.16.8 40.1.951372.3.579.2.72 1965 Unknown [id number] 2.16.8 40.1.874657.3.579.2.727 1965 Unknown [id number] 2.16.8 40.1.000194.3.579.2.727 1965 Unknown [id number] 2.16.8 40.1.582347.3.579.2.727 1965 Unknown [id number] 2.16.8 40.1.812353.3.579.2.727 1965 Unknown [id number] 2.16.8 40.1.333627.3.579.2.727 1959 Unknown [id number] 2.1 6.840.1.594463.19 Unknown [employer] Unknown [id number] 2.16.8 40.1.377136.3.579.2.531 Unknown [id number] 2.16.8 40.1.449124.3.579.2.531 Unknown [id number] 2.16.8 40.1.610880.3.579.2.531 Unknown [id number] 2.16.8 40.1.419010.3.579.2.531 Social History Date Type Detail Facility Caffeine use Caffeine use [facility] Other Comment on above: 2 cups coffee, 4-6 c ups tea daily, occaional soda; qauit 07/2020; Sex Assigned At [facility] Start: 07-14-2020 End: 07-12-2023 Tobacco smoking status NHIS Smoker (finding) [facility] Start: 1965 Sex Assigned At Male [facility] Start: 11-23-2022 End: 06-02-2023 Tobacco smoking status Heavy tobacco smoker (finding) [facility] Tobacco smoking status Never [facility] Medical Equipment Procedure Code Equipment Code Equipment Origin al Text Equipment Identifier Dates Aortogram, abdominal, with bilateral lower extremity runoff IR STENT SMART 10 X 80 120 CM FDA Start: 09-27-2018 Aortogram, abdominal, with bilateral lower extremity runoff IR STENT SMART 10 X 80 120 CM FDA Start: 09-27-2018 Start: 12-16-2013 Bare-metal bilia ry stentMultiple peripheral artery stent, bare-metal ([id number] [facility] Start: 07-14-2020 Functional Status Date Assessment Result Facility 06-02-2023 Functional Status N/A [facility] 02-14-2023 Functional Status N/A [facility] 01-30-2023 Functional Status N/A [facility] 11-23-2022 Functional Status N/A [facility] Clinical Notes 06-23-2021 to 06-26-2023 Note Date & Type Note Facility 06-26-2023 Evaluation note Encounter Date Diagnosis Assessment Notes Jun, Hyperlipidemia (ICD-10 - E78.5) [employer] Other [id number] Hospital Discharge instructions Patient Education 06/02/2023 11:57:43 [...] urethra. Follow these instructions at home: Take [id number] and prescription medicines only as told by [...] provider. Document Revised: 12/08/2021 Document Reviewed: 12/08/2021 [facility] Patient Education 2022 [employer]. Follow Up Care 06/01/2023 14:05:36 With:SOLEDAD HERRERA, Yeyo Blum, URL Address: [address] [place] [phone] When: Unknown [facility] [place] 12-12-2023 Evaluation note* Encounter Date Diagnosis Assessment Notes Treatment Notes Treatment Clinical Notes May, 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) [employer] Other 11-24-2023 Evaluation note* Encounter Date Diagnosis Assessment Notes Treatment Notes Treatment Clinical Notes Apr, Diabetic nephropathy (ICD-10 - E11.21) [employer] Other 11-07-2023 Evaluation note* Encounter Date Diagnosis Assessment Notes Treatment Notes Treatment Clinical Notes Apr, Left arm pain (ICD-10 - M79.602) [employer] Other 11-02-2023 Evaluation note* Encounter Date Diagnosis [...] and to have his surgery as scheduled. 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 He was found to have developed the [...] to continue to montior this at home. [employer] Other 10-09-2023 Note [id number]23 [id number]:127[facility]09-12-2023 Note [id number]:127[facility] 02-14-2023 Hospital Discharge instructions Patient Education [...] including vitamins, herbs, eye drops, creams, and xhhf-atb-yqmhbzt medicines. Any problems you or family members [...] provider tells you to take them. Taking cbby-nxc-pacrbln medicines, vitamins, herbs, and supplements. Surgery safety [...] provider. Document Revised: 02/15/2022 Document Reviewed: 02/15/2022 [employer] Patient Education 2022 [employer]. [facility]08-28-2023 Hospital Discharge instructions Patient Education 01/30/2023 11:22:32 [...] including vitamins, herbs, eye drops, creams, and udln-dcl-asxfrlb medicines. ?Whether you are or may be [...] provider. Document Revised: 02/02/2022 Document Reviewed: 12/25/2020 [employer] Patient Education 2022 [employer]. 01/30/2023 11:22:30 Cystoscopy Cystoscopy Cystoscopy is a [...] including vitamins, herbs, eye drops, creams, and twuq-fko-ihoehfk medicines. Any problems you or family members [...] provider tells you to take them. Taking oxkc-nha-dcqiejp medicines, vitamins, herbs, and supplements. Tests You [...] Follow these instructions at home: Medicines Take xxjl-sky-hjwuqap and prescription medicines only as told by [...] provider. Document Revised: 02/02/2022 Document Reviewed: 01/01/2021 [employer] Patient Education 2022 [employer]. Follow Up Care 11/23/2022 13:02:56 With:SOLEDAD HERRERA, Yeyo Blum, URL Address: [facility] [address], [place] [phone] When: Unknown Comments:sched cysto/uros [facility] 08-15-2023 Evaluation note* Encounter Date Diagnosis Assessment Notes Treatment Notes Treatment Clinical Notes Jan, Diabetic nephropathy (ICD-10 - E11.21) [employer] Other 06-29-2023 Evaluation note* Encounter Date Diagnosis [...] reviewed. Nov, 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) Encouraged patient to follow with Cardiology as scheduled. [employer] Other 06-21-2023 Hospital Discharge instructions Patient Education [...] provider. Document Revised: 08/11/2021 Document Reviewed: 05/07/2021 [employer] Patient Education 2021 [employer]. Follow Up Care 09/14/2022 14:23:26 With:SOLEDAD HERRERAYeyo, URL Address: [facility] [address] [place] [address]- When: Unknown [facility] [place] 05-05-2023 Evaluation note* Encounter Date Diagnosis Assessment Notes Treatment Notes Treatment Clinical Notes October, Erectile dysfunction, unspecified erectile dysfunction type (ICD-10 - N52.9) [employer] Other 04-19-2023 Evaluation note* Encounter Date Diagnosis Assessment Notes Treatment Notes Treatment Clinical Notes Sep, 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) [employer] Other 04-12-2023 Evaluation note* Encounter Date Diagnosis Assessment Notes Treatment Notes Treatment Clinical Notes Sep, 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) Sep, 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) [employer] Other 03-20-2023 Evaluation note* Encounter Date Diagnosis Assessment Notes Treatment Notes Treatment Clinical Notes Aug, Diabetic nephropathy (ICD-10 - E11.21) [employer] Other 03-03-2023 Evaluation note* Encounter Date Diagnosis Assessment Notes Treatment Notes Treatment Clinical Notes Aug, Pain in right leg (ICD-10 - M79.604) [employer] Other 03-02-2023 Evaluation note* Encounter Date Diagnosis Assessment Notes Treatment Notes Treatment Clinical Notes Aug, Pain in right leg (ICD-10 - M79.604) [employer] Other 02-20-2023 Evaluation note* Encounter Date Diagnosis Assessment Notes Treatment Notes Treatment Clinical Notes Jul, Intractable episodic headache, unspecified headache type (ICD-10 - R51.9) [employer] Other 02-14-2023 Evaluation note* Encounter Date Diagnosis Assessment Notes Treatment Notes Treatment Clinical Notes Jul, Acute intractable headache, unspecified headache type (ICD-10 - R51.9) [employer] Other 02-08-2023 Evaluation note* Encounter Date Diagnosis Assessment Notes Treatment Notes Treatment Clinical Notes Jul, Headache (ICD-10 - R51.9) [employer] Other 01-30-2023 Evaluation note* Encounter Date Diagnosis [...] medication and we will continue to monitor. [employer] Other 12-21-2022 Evaluation note* Encounter Date Diagnosis Assessment Notes Treatment Notes Treatment Clinical Notes May, Diabetic nephropathy (ICD-10 - E11.21) [employer] Other 11-21-2022 Evaluation note* Encounter Date Diagnosis Assessment Notes Treatment Notes Treatment Clinical Notes Apr, Diabetic nephropathy (ICD-10 - E11.21) [employer] Other 11-15-2022 Evaluation note* Encounter Date Diagnosis Assessment Notes Treatment Notes Treatment Clinical Notes Apr, Pain in right leg (ICD-10 - M79.604) [employer] Other 10-18-2022 Evaluation note* Encounter Date Diagnosis Assessment Notes Treatment Notes Treatment Clinical Notes Mar, Diabetic nephropathy (ICD-10 - E11.21) [employer] Other 09-13-2022 Evaluation note* Encounter Date Diagnosis Assessment Notes Treatment Notes Treatment Clinical Notes Feb, Hypertensive chronic kidney disease with stage 1 through stage 4 chronic kidney disease, or unspecified chronic kidney disease (ICD-10 - I12.9) [employer] Other 09-13-2022 Evaluation note* Encounter Date Diagnosis [...] scheduled. 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 Feb, Pain in right leg [...] Noted upon review of blood work results. [employer] Other 08-19-2022 Evaluation note* Encounter Date Diagnosis Assessment Notes Treatment Notes Treatment Clinical Notes Jan, Diabetic nephropathy (ICD-10 - E11.21) [employer] Other 08-17-2022 Evaluation note* Encounter Date Diagnosis Assessment Notes Treatment Notes Treatment Clinical Notes Jan, Diabetic nephropathy (ICD-10 - E11.21) [employer] Other 07-21-2022 Evaluation note* Encounter Date Diagnosis Assessment Notes Treatment Notes Treatment Clinical Notes Dec, Diabetic nephropathy (ICD-10 - E11.21) [employer] Other 06-22-2022 Evaluation note* Encounter Date Diagnosis Assessment Notes Treatment Notes Treatment Clinical Notes Nov, Diabetic nephropathy (ICD-10 - E11.21) [employer] Other 05-23-2022 Evaluation note* Encounter Date Diagnosis Assessment Notes Treatment Notes Treatment Clinical Notes October, Diabetic nephropathy (ICD-10 - E11.21) [employer] Other 05-17-2022 Evaluation note* Encounter Date Diagnosis [...] E11.59) October, 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 Kennedy. For this October, Other He did quit smoking since July 2020 [employer] Other 05-16-2022 Evaluation note* Encounter Date Diagnosis Assessment Notes Treatment Notes Treatment Clinical Notes October, Hypertensive chronic kidney disease with stage 1 through stage 4 chronic kidney disease, or unspecified chronic kidney disease (ICD-10 - I12.9) October, Stage 3 chronic kidney disease, unspecified whether stage 3a or 3b CKD (ICD-10 - N18.30) [employer] Other 05-06-2022 Evaluation note* Encounter Date Diagnosis Assessment Notes Treatment Notes Treatment Clinical Notes October, Pain in right leg (ICD-10 - M79.604) October, Pain in left leg (ICD-10 - M79.605) [employer] Other 04-20-2022 Evaluation note* Encounter Date Diagnosis Assessment Notes Treatment Notes Treatment Clinical Notes Sep, Diabetic nephropathy (ICD-10 - E11.21) [employer] Other 04-19-2022 Evaluation note* Encounter Date Diagnosis Assessment Notes Treatment Notes Treatment Clinical Notes Sep, Anxiety (ICD-10 - F41.9) Sep, Hypertensive chronic kidney disease with stage 1 through stage 4 chronic kidney disease, or unspecified chronic kidney disease (ICD-10 - I12.9) [employer] Other 03-07-2022 Evaluation note* Encounter Date Diagnosis Assessment Notes Treatment Notes Treatment Clinical Notes Aug, Anxiety (ICD-10 - F41.9) [employer] Other 02-22-2022 Evaluation note* Encounter Date Diagnosis [...] 12 pound weight loss from last visit. [employer] Other [id number] Evaluation note* Encounter Date Diagnosis Assessment Notes Treatment Notes Treatment Clinical Notes Jun, Diabetic nephropathy (ICD-10 - E11.21) [employer] Other Evaluation + Plan note Future Appointments Appointment Date:12/21/2022 11:00:00 AM Scheduled Provider: Location:[facility] Appointment Type:URO Nurse Visit Appointment Date:01/30/2023 10:30:00 AM Scheduled Provider:Yeyo SILVESTRE MD Location:[facility] [place] Appointment Type:URO Office Visit [facility] Evaluation + Plan note Future Appointments Appointment Date:01/30/2023 10:15:00 AM Scheduled Provider:Yeyo SILVESTRE MD Location:[facility] Appointment Type:URO Office Visit [facility] Evaluation + Plan note Future Appointments Appointment Date:02/01/2023 10:00:00 AM Scheduled Provider: Location:[facility] Appointment Type:Urology CALL PAT FT Appointment Date:02/08/2023 09:00:00 AM Scheduled Provider: Location:[facility] Appointment Type:Urology FT Appointment Date:02/14/2023 09:15:00 AM Scheduled Provider: Location:[facility] Appointment Type:Urology FT [facility] evaluation + Plan note Future Appointments Appointment Date:02/14/2023 09:15:00 AM Scheduled Provider: Location:[facility] Future Appointments Appointment Date:03/20/2023 08:45:00 AM Scheduled Provider: Location:[facility] Appointment Type:URO Nurse Visit Appointment Date:04/05/2023 08:00:00 AM Scheduled Provider:Yeyo SILVESTRE MD Location:[facility] Appointment Type:URO [facility] Future Appointments Appointment Date:05/03/2023 08:45:00 AM Scheduled Provider:Yeyo SILVESTRE MD Location:[facility] Appointment Type:URO Office Visit [facility] Evaluation + Plan note Future Appointments Appointment Date:07/03/2023 10:15:00 AM Scheduled Provider:Yeyo SILVESTRE [facility] Office Visit [facility] evaluation noteNo [facility] Other Evaluation noteNo assessment information available [facility] Work Phone: History general Narrative - [...] Heart stent placed by Dr. Bowie at [facility] 07/26/15 Surgical History Left knee arthroscopy 11/2015 Surgical History carpal tunnel release, right an d left 08/2016 Surgical History hydrocele repair 08/2016 Surgical History cardiac cath [facility] 04/02/18 Surgical History Lt LE iliac DSA, angioplasty & stenting 09/27/2018 Surgical History Left Angiogram with one stent - Dr. Boss 07/2020 Hospitalization History Deep Depression, Anxiety; [facility] 11-11-10 Hospitalization History [facility] hypoxemia and hyper capnic respirtory failure 11/11/16 Hospitalization History chest pain [facility] 04/02/18 [employer] [facility] Other History of Present illness NarrativeReturns in [...] impact on blood pressure and diabetes were reviewed-[facility] 250 DO Work Phone: History of Present [...] medication regimen. He denies medication side effects. [facility] 600 DO Work Phone: History of Present [...] medication regimen. He denies medication side effects. [facility] 250 DO Work Phone: Hospital course Narrative No data available for this section [facility] [place] [employer] Hospital Discharge instructions No data available for this section [facility] [place] note No data available for this section [facility] Chief Complaint SOLOMON FELDMAN is being seen [...] adache, unspecified headache type (R51.9) Referral Organization [facility] Referring Provider First Name Jenaro Referring Provider Last Name Rory Referring Provider Specialty Family [place] Referred Organization [facility] Referred Provider Lyssa Sharpe Referred Address [address], [place],[phone] Referred Provider Specialty Neurology Referral Priority Routine [facility] 10:19[facility]08 AM >Received today. [facility] request us to fill out their form and attach to Referral and send it to them and they will call patient to schedule. Referral was sent P2P and fax insurance card since it would not let me attach to referral [facility] 07/28/2022 10:23:53 AM >Spoke with Marilynn at [facility] and patient has been scheduled and cancelled the appt for 07/26/22 [facility] 07/28/2022 10:27:39 AM >Telephone encounter was sent Reason 03/31/22 @ 2:45pm consult and treat Diagnosis 1 Type 2 diabetes bobby itus with circulatory disorder (E11.59) [facility] Referring Provider First Name Jenaro Referring Provider Last Name Rory Referring Provider Specialty [facility] [place] Referred Organization [facility] Referred Provider Doris Barnes Referred Address [address],[place],[id number] Referred Provider Specialty Nurse Jono calderon Referral Priority Routine Referral Appointment Date 2022-03-31 [facility] 02:28:10 PM >Received today and sent P2P [facility] 02/16/2022 07:50:21 AM >Patient has been [...] this at the same time, * Needs [id number] to sendRefills-bpk to send rxrefil - bpk to send rxLAB ORDERSRENAL 6 month Follow uprefillrefillclinicalRefills-bpk to send rxlyrica rx printedDM ReferralClinicaldiscuss PSA resultsclinicalClinicalRefills-bpk to send rxrefillrefill- BPK to send rxRefills-bpk to send rxClinicalheadachesClinicaltoradol shottoradol shotclinicaltoradol per bpkNeurology Referral UpdateRefills-bpk to send rxrefillRefillDM Referral UpdaterefillRefillsRefillsTKM CancelledMED CHECKbpk to send [id number] check/hospital f/u-bellevueRefillsR/S surgical clearanceclinicalrefillrefillrefillClinical Care Teams (unrecognized sec tion and content) Team Status: Active Member Role Status Elda Lynch DO Primary Care Provider Active Team Status: Inactive Member Role Status Dates Jenaro Lynch DO Primary Care Provider Active Shana Mclaughlin PA-C Attending Provider Active Team Status: Inactive Member Role Status Dates Jenaro Lynch DO Primary Care Provider Active Jenaro Lynch DO [facility] Attending Provider Active Team Status: Inactive Member [...] DATE CREATED AUTHOR 'S ORGANIZ ATION 01/27/2023 [facility] DATE CREATED AUTHOR AUTHOR'S ORGANIZ ATION 02/16/2023 [facility] DATE CREATED AUTHOR AUTHOR'S ORGANIZ ATION 02/16/2023 [employer] DATE CREATED AUTHOR AUTHOR'S ORGANIZ ATION 07/14/2023 [facility] DATE CREATED AUTHOR AUTHOR'S ORGANIZ ATION 08/08/2023 [facility] FOR RECORDS PERTAINING TO PATIENTS WHO [...] BE BASED ON THE PRIMARY CLINICAL RECORDS. [facility] provides no warranty or guarantee of the accuracy or completeness of information in this document.
== END 2023-08-14 13:28 | disposition home or self-care (01) ==
LOC: WC 13:27
PROVIDERS: PCP Family Medicine; Visit Provider Physician Assistant
DX: E11.621 Type 2 diabetes mellitus with foot ulcer (principal); L97.415 Non-pressure chronic ulcer of right heel and midfoot with muscle involvement without evidence of necrosis
CPT/HCPCS: 97605

== ENCOUNTER 2023-08-16 14:51 | Outpatient (OUT) | payer OTHER, SELFPAY | END 2023-08-16 14:52 | disposition home or self-care (01) | LOC: WC 14:51 | PROVIDERS: PCP Family Medicine; Visit Provider Podiatrist Foot & Ankle Surgery | DX: E11.621 Type 2 diabetes mellitus with foot ulcer (principal); L97.415 Non-pressure chronic ulcer of right heel and midfoot with muscle involvement without evidence of necrosis | CPT/HCPCS: 97605 ==

== ENCOUNTER 2023-08-18 11:18 | Outpatient (OUT) | payer OTHER, SELFPAY | END 2023-08-18 11:19 | disposition home or self-care (01) | LOC: WC 11:18 | PROVIDERS: PCP Family Medicine; Visit Provider Podiatrist Foot & Ankle Surgery | DX: E11.621 Type 2 diabetes mellitus with foot ulcer (principal); L97.415 Non-pressure chronic ulcer of right heel and midfoot with muscle involvement without evidence of necrosis | CPT/HCPCS: G0463 ==

== ENCOUNTER 2023-08-22 09:25 | Outpatient (OUT) | payer OTHER, SELFPAY ==
--- OUTSIDE RECORDS SUMMARY | 2023-08-22 09:45 | XMS_ITS | CCD ---
Author Organization [facility] Care Team Providers Care Automation Test Developer Name Role Phone Jenaro Lynch Unavailable Unavailable Unavailable Jenaro Lynch Unavailable Chavoolivier Norrisjuan Unavailable Judd Verona Unavailable Doris Barnes Unavailable DO Jenaro Lynch Primary Care Provider JERARDO Mclaughlin Attending Provider [phone] DO Jenaro Lynch Attending Provider ELAINE .DUARTE Attending Unavailable ELAINE Hernandez DUARTE Admitting Unavailable DR LYSSA PERDOMO Consulting Unavailable SYED, DR MOORE Primary Care Unavailable DUARTE MÁRQUEZ Consulting Unavailable JENARO LYNCH Primary Care Physician Syed, Dr. Jenaro Orona Primary Care UnavailDolores Vaughn Attending Unavailable Dolores Feldman Attending Unavailable Dolores Feldman Referring Unavailable Syed, Dr. Jenaro Orona Primary Care UnavailDolores Vaughn Attending Unavailable Dolores Feldman Referring Unavailable Syed, Dr. Jenaro Orona Primary Care Unavailmaría Kennedy II, Dr. Raulito Orona Referring Unavailable Syed, Dr. Jenaro Orona Primary Care Unavailmaría Kennedy II, Dr. Raulito Orona Attending Unavailable DO Jenaro Lynch Primary Care Provider [phone] MD Nancy Chaudhari Emergency Provider Yeyo SILVESTRE Attending Unavailable SILVESTRE, Yeyo R Referring Unavailable [...] Shana Admitting Unavailable Lowe, Shana Attending Unavailable Arnoldo, Shana Referring Unavailable Syed, Jenaro Primary Care Unavailable Syed, Jenaro Primary Care Unavailable Steve, Nancy Attending Unavailable Steve, Nancy Admitting Unavailable Allergies Allergy Classification Reported Allergen(s) Allergy Type Date of Onset Reaction(s) Facility (15 sources) natural latex rubber; 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: [Latex] Allergy to substance (finding) Itching (finding), Eruption of skin (disorder) [facility] (17 sources) Penicillins; 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: [Penicillins] Allergy to drug (finding) 07-14-19 21 Anaphylactoid reaction (disorder) [facility] (20 sources) Acetaminophen / oxyCODONE Drug Allergy vomiting [facility] Other (20 sources) tamsulosin Drug Allergy 07-14-19 21 hives [facility] (20 sources) PENICIILIN Propensity to adverse reactions SWELLING OF AIRWAY [facility] Other (3 sources) Acetaminophen; 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: [acetaminophen] Drug Allergy 07-14-19 21 Vomiting [facility] (4 sources) oxyCODONE; 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: [Oxycodone] Drug Allergy 02-08-20 17 Vomiting [facility] (1 source) Penicillins Drug allergy (disorder) 09-23-19 14 [facility] (9 sources) Penicillin G; 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: [penicillin G benzathine] Drug Allergy [facility] (8 sources) Penicillin Drug Allergy anaphylaxis [email or web address] Other (1 source) Penicillins Drug allergy (disorder) 07-31-19 [facility] (1 source) tamsulosin Drug Allergy 07-31-19 [facility] Repository Medications Current Medications Medication Drug [...] 12:00am July 14, 2020 11:39am Start: 10-10-2014 [place] 325 mg-5 mg oral tablet 1 tab(s), [...] Ordered Start: 09-28-2020 take 1 tablet by kalei th every twenty-four hours Jardiance 25 MG [...] Start: 02-14-2023 take 1 capsule by mo uth twice daily tamsulosin 0.4 mg Cap 0.4 mg = 1 cap(s), Oral, BID, # 60 cap(s), Refills(s) 3, Pharmacy: [facility]/pharmacy #[id number], 182, cm, 02/14/23 8:58:00 EDT, Height/Length Dosing, 94, kg, 01/30/23 10:24:00 EDT, Weight Dosing Start Date: 02/14/23 Status: Ordered take 1 capsule by [facility] once daily Tamsulosin HCl - 0.4 MG Oral Capsule TAKE 1 CAPSULE Daily Quantity: 0 Refills: 0 Ordered: 15-Feb-2023 DO [facility] (20 sources) Start: 01-27-2014 Start: 01-27-2014 [facility] as d irected Use as directed. Jan, Active Tiotropium [place] (Spiriva With Handihaler) 18 mcg capsule, w/inhalation device (1 source) Start: 07-12-2023 take 1 capsule by inhalation once daily Tiotropium [place] (Spiriva With Handihaler) 18 mcg capsule, w/inhalation [...] Ordered Start: 07-04-2022 take 1 tablet by [facility] every twelve hours tiZANidine HCl 4 MG 1 tablet as needed Orally Twice a day Jun, Active take 2 tablets by [facility] at bedtime tiZANidine HCl - 4 MG [...] procedure, # 2 cap(s), Refills(s) 0, Pharmacy: [facility]/pharmacy #[id number], 182, cm, 01/30/23 10:24:00 EDT, [...] take 1 tablet by mouth once daily Olmesartan-[place] chlorothiazide (Benicar Hct) 40-12.5 mg Tablet Discontinued [...] [Coronary atherosclerosis of unspecified type of vessel, ely [place] or graft] Onset: 2 Resolved: 2 Chronic [...] sources) Long-term current use of insulin; 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] Episodic Other and [...] LE BIon US venous duplex LE BI [facility] Main [place] [address] [place] [address] Ultrasound Report Signed Patient: Solomon Feldman MR#: [id number] : 1965 Acct:[id number] Age/Sex: 57 / M ADM Date: 07/12/23 Loc: ER Room: Type: [facility] ER Attending Dr: Ordering Provider: Nancy [...] Howard Boss MD07/13/2023 11:56 AM Dictation Location: [place] [address] Tech: Nancy Pantoja Transcribed By: BOB 07/13/23 115 Dictated By: Howard Boss MD 07/13/23 1156 Signed By: 07/13/23 115 [facility] US venous duplex UE LTon US venous duplex UE LT [facility] [place] [address] Ultrasound Report Signed Patient: Solomon Feldman SR MR#: [id number] : 1965 Acct:[id number] Age/Sex: 57 / M ADM Date: 07/12/23 Loc: ER Room: Type: [facility] ER Attending Dr: Ordering Provider: Nancy [...] Howard Boss MD07/13/2023 11:56 AM Dictation Location: [place] [address] Tech: Nancy Pantoja Transcribed By: BOB 07/13/23 1156 Dictated By: Howard Boss MD 07/13/23 1155 Signed By: 07/13/23 115 [facility] Activated partial thrombopla stin time (aPTT) in platelet poor plasma by coagulation aOrdered By: Nancy Chaudhari on 07-12-2023 aPTT Coag (PPP) [Time] 29.4 s 25.1-36.5 [facility] Comment on above: A hematocrit value g reater than 55% may lead to inaccurate results in coagulation testing. Patients having hematocrit values >55% require a special collection tube for coagulation studies. Please contact the laboratory at [phone] for redraw instructions. Alanine aminotransferase [En zymatic activity/volume] in Serum or PlasmaOrdered By: Nancy Chaudhari on 07-12-2023 ALT [Catalytic activity/Vol] 9 U/L 7-52 [facility] Albumin [Mass/volume] in Ser um or Plasma by Bromocresol green (BCG) dye binding methoOrdered By: Nancy Chaudhari on 07-12-2023 Albumin BCG dye [Mass/Vol] 3.9 g/dL 3.5-5.7 [facility] Alkaline phosphatase [Enzyma tic activity/volume] in Serum or PlasmaOrdered By: Nancy Chaudhari on 07-12-2023 ALP [Catalytic activity/Vol] 106 U/L 34-104 [facility] Aspartate aminotransferase [ Enzymatic activity/volume] in Serum or PlasmaOrdered By: Nancy Chaudhari on 07-12-2023 AST [Catalytic activity/Vol] 8 U/L 13-39 [facility] B-Type Natriuretic Peptideon 07-12-2023 Natriuretic peptide B (Bld) [Mass/Vol] 34.0 pg/mL Normal 5-100 [facility] Comment on above: Result Comment: PERF ORMED BY: [facility] [address] [place] [address] PATHOLOGIST WALL WASHER CLIFFORD LOBATO M.D. Performed By: #### B PAINTER AND DECORATOR, CMP, HS TROP, CK, PTT, CBC, PT ####[facility] [id number] [place] [address] [facility] Basophils Auto (Bld) [#/Vol] Ordered By: Nancy Chaudhari on 07-12-2023 Basophils (Bld) [#/Vol] 0.1 10*3/uL 0.0-0.2 [facility] Basophils/100 WBC Auto (Bld) Ordered By: Nancy Chaudhari on 07-12-2023 Basophils/100 WBC (Bld) 1.1 % . [facility] Bilirubin.total [Mass/volume ] in Serum or PlasmaOrdered By: Nancy Chaudhari on 07-12-2023 Bilirubin [Mass/Vol] 0.4 mg/dL 0.3-1.0 [facility] Calcium [Mass/volume] in Ser um or PlasmaOrdered By: Nancy Chaudhari on 07-12-2023 Calcium [Mass/Vol] 8.5 mg/dL 8.6-10.3 [facility] Carbon dioxide, total [Moles /volume] in Serum or PlasmaOrdered By: Nancy Chaudhari on 07-12-2023 CO2 [Moles/Vol] 24.5 mmol/L 21.0-31.0 [facility] Chloride [Moles/volume] in S ilia or PlasmaOrdered By: Nancy Chaudhari on 07-12-2023 Chloride [Moles/Vol] 102 mmol/L 98-107 [facility] Complete Blood Count Auto Di ffon 07-12-2023 Basophils (Bld) [#/Vol] 0.1 10*3/uL Normal 0.0-0.2 [facility] Comment on above: Result Comment: PERF ORMED BY: [facility] [address] [place] [address] PATHOLOGIST WALL WASHER CLIFFORD LOBATO M.D. Performed By: #### B PAINTER AND DECORATOR, CMP, HS TROP, CK, PTT, CBC, PT ####[address] Basophils/100 WBC (Bld) 1.1 % Normal . [facility] Comment on above: Performed By: #### B PAINTER AND DECORATOR, CMP, HS TROP, CK, PTT, CBC, PT ####[facility] Eosinophils (Bld) [#/Vol] 0.3 10*3/uL Normal 0.0-0.45 [facility] Comment on above: Performed By: #### B PAINTER AND DECORATOR, CMP, HS TROP, CK, PTT, CBC, PT ####[place] [address] [place] Eosinophils/100 WBC (Bld) 3.3 % Normal . [facility] Comment on above: Performed By: #### B PAINTER AND DECORATOR, CMP, HS TROP, CK, PTT, CBC, PT ####[address] Erythrocyte distribution width (RBC) [Ratio] 17.1 % High 12.0-14.8 [facility] Comment on above: Performed By: #### B PAINTER AND DECORATOR, CMP, HS TROP, CK, PTT, CBC, PT ####[address] Hematocrit (Bld) [Volume fraction] 32.7 % Low 38.8-50.0 [facility] Comment on above: Performed By: #### B PAINTER AND DECORATOR, CMP, HS TROP, CK, PTT, CBC, PT ####[address] Hemoglobin (Bld) [Mass/Vol] 10.6 g/dL Low 13.0-17.0 [facility] Comment on above: Performed By: #### B PAINTER AND DECORATOR, CMP, HS TROP, CK, PTT, CBC, PT ####[address] Lymphocytes (Bld) [#/Vol] 1.9 10*3/uL Normal 1.00-4.8 [facility] Comment on above: Performed By: #### B PAINTER AND DECORATOR, CMP, HS TROP, CK, PTT, CBC, PT ####[address] Lymphocytes/100 WBC (Bld) 20.0 % Normal . [facility] Comment on above: Performed By: #### B PAINTER AND DECORATOR, CMP, HS TROP, CK, PTT, CBC, PT ####[address] MCH (RBC) [Entitic mass] 22.8 pg Low 27.5-35.2 [facility] Comment on above: Performed By: #### B PAINTER AND DECORATOR, CMP, HS TROP, CK, PTT, CBC, PT ####[address] MCV (RBC) [Entitic vol] 70.6 fL Low 83.5-101 [facility] Comment on above: Performed By: #### B PAINTER AND DECORATOR, CMP, HS TROP, CK, PTT, CBC, PT ####[address] Mean Corpuscular HGB Conc 32.4 g/dL Low 32.5-35.6 [facility] Comment on above: Performed By: #### B PAINTER AND DECORATOR, CMP, HS TROP, CK, PTT, CBC, PT ####[address] Monocytes (Bld) [#/Vol] 1.0 10*3/uL High 0.0-0.8 [facility] Comment on above: Performed By: #### B PAINTER AND DECORATOR, CMP, HS TROP, CK, PTT, CBC, PT ####[address] Monocytes/100 WBC (Bld) 18.12 % Normal 0.00-20.00 [facility] Comment on above: Performed By: #### B PAINTER AND DECORATOR, CMP, HS TROP, CK, PTT, CBC, PT ####[address] Monocytes/100 WBC (Bld) 10.2 % Normal . [facility] Comment on above: Performed By: #### B PAINTER AND DECORATOR, CMP, HS TROP, CK, PTT, CBC, PT ####[address] Neutrophils (Bld) [#/Vol] 6.2 10*3/uL Normal 1.8-7.7 [facility] Comment on above: Performed By: #### B PAINTER AND DECORATOR, CMP, HS TROP, CK, PTT, CBC, PT ####[address] Neutrophils/100 WBC (Bld) 65.4 % Normal . [facility] Comment on above: Performed By: #### B PAINTER AND DECORATOR, CMP, HS TROP, CK, PTT, CBC, PT ####[address] NRBC% 0.1 /100{WBC} Normal 0-0.5 [facility] Comment on above: Performed By: #### B PAINTER AND DECORATOR, CMP, HS TROP, CK, PTT, CBC, PT ####[address] Platelet mean volume (Bld) [Entitic vol] 9.1 fL Normal 6.6-10.1 [facility] Comment on above: Performed By: #### B PAINTER AND DECORATOR, CMP, HS TROP, CK, PTT, CBC, PT ####[address] Platelets (Bld) [#/Vol] 233 10*3/uL Normal 150-450 [facility] Comment on above: Performed By: #### B PAINTER AND DECORATOR, CMP, HS TROP, CK, PTT, CBC, PT ####[address] RBC (Bld) [#/Vol] 4.63 10*6/uL Normal 3.90-5.60 [facility] Comment on above: Performed By: #### B PAINTER AND DECORATOR, CMP, HS TROP, CK, PTT, CBC, PT ####[address] WBC (Bld) [#/Vol] 9.5 10*3/uL Normal 4.1-10.5 [facility] Comment on above: Performed By: #### B PAINTER AND DECORATOR, CMP, HS TROP, CK, PTT, CBC, PT ####[address] Comprehensive Metabolic Pane bárbara 07-12-2023 Albumin [Mass/Vol] 3.9 g/dL Normal 3.5-5.7 [facility] Comment on above: Performed By: #### B PAINTER AND DECORATOR, CMP, HS TROP, CK, PTT, CBC, PT ####[address] Albumin/Globulin [Mass ratio] 1.3 {ratio} Normal [facility] Comment on above: Performed By: #### B PAINTER AND DECORATOR, CMP, HS TROP, CK, PTT, CBC, PT ####[address] ALP [Catalytic activity/Vol] 106 U/L High 34-104 [facility] Comment on above: Performed By: #### B PAINTER AND DECORATOR, CMP, HS TROP, CK, PTT, CBC, PT ####[address] ALT [Catalytic activity/Vol] 9 U/L Normal 7-52 [facility] Comment on above: Performed By: #### B PAINTER AND DECORATOR, CMP, HS TROP, CK, PTT, CBC, PT ####[address] Anion gap [Moles/Vol] 13.4 mmol/L Normal 6.0-15.0 [facility] Comment on above: Performed By: #### B PAINTER AND DECORATOR, CMP, HS TROP, CK, PTT, CBC, PT ####[address] AST [Catalytic activity/Vol] 8 U/L Low 13-39 [facility] Comment on above: Performed By: #### B PAINTER AND DECORATOR, CMP, HS TROP, CK, PTT, CBC, PT ####[place] [id number] [facility] Bilirubin [Mass/Vol] 0.4 mg/dL Normal 0.3-1.0 [facility] Comment on above: Performed By: #### B PAINTER AND DECORATOR, CMP, HS TROP, CK, PTT, CBC, PT ####[place] [id number] [facility] Calcium [Mass/Vol] 8.5 mg/dL Low 8.6-10.3 [facility] Comment on above: Performed By: #### B PAINTER AND DECORATOR, CMP, HS TROP, CK, PTT, CBC, PT ####[address] Chloride [Moles/Vol] 102 mmol/L Normal 98-107 [facility] Comment on above: Performed By: #### B PAINTER AND DECORATOR, CMP, HS TROP, CK, PTT, CBC, PT ####[place] [address] [address] CO2 [Moles/Vol] 24.5 mmol/L Normal 21.0-31.0 [facility] Comment on above: Performed By: #### B PAINTER AND DECORATOR, CMP, HS TROP, CK, PTT, CBC, PT ####[place] [id number] [facility] Creatinine [Mass/Vol] 1.82 mg/dL High 0.70-1.30 [facility] Comment on above: Performed By: #### B PAINTER AND DECORATOR, CMP, HS TROP, CK, PTT, CBC, PT ####[address] Creatinine Clr Calc Pharmacy 54.64 [facility] Comment on above: Result Comment: PERF ORMED BY: [facility] [address] [place] [address] PATHOLOGIST WALL WASHER CLIFFORD LOBATO M.D. Performed By: #### B PAINTER AND DECORATOR, CMP, HS TROP, CK, PTT, CBC, PT ####[address] GFR/1.73 sq M.predicted MDRD (S/P/Bld) [Vol rate/Area] 42.789 mL/min/{1.73_m2} [facility] Comment on above: Performed By: #### B PAINTER AND DECORATOR, CMP, HS TROP, CK, PTT, CBC, PT ####[place] [id number] [facility] Globulin (S) [Mass/Vol] 3.1 g/dL [facility] Comment on above: Performed By: #### B PAINTER AND DECORATOR, CMP, HS TROP, CK, PTT, CBC, PT ####[place] [id number] [facility] Glucose [Mass/Vol] 302 mg/dL High 70-100 [facility] Comment on above: Result Comment: Alee goel Glucose Reference Range is dependent on time and content of last meal. Glucose of more than 200 mg/dL in a nonstressed, ambulatory subject supports the diagnosis of Diabetes Mellitus. ADA recommended reference range Performed By: #### B PAINTER AND DECORATOR, CMP, HS TROP, CK, PTT, CBC, PT ####[address] Potassium [Moles/Vol] 3.9 mmol/L Normal 3.5-5.1 [facility] Comment on above: Performed By: #### B PAINTER AND DECORATOR, CMP, HS TROP, CK, PTT, CBC, PT ####[place] [id number] [facility] Protein [Mass/Vol] 7.0 g/dL Normal 6.4-8.9 [facility] Comment on above: Performed By: #### B PAINTER AND DECORATOR, CMP, HS TROP, CK, PTT, CBC, PT ####[place] [id number] [facility] Sodium [Moles/Vol] 136 mmol/L Normal 136-145 [facility] Comment on above: Performed By: #### B PAINTER AND DECORATOR, CMP, HS TROP, CK, PTT, CBC, PT ####[place] [id number] [facility] Urea nitrogen [Mass/Vol] 16 mg/dL Normal 7-25 [facility] Comment on above: Performed By: #### B PAINTER AND DECORATOR, CMP, HS TROP, CK, PTT, CBC, PT ####[place] [id number] [facility] Creatine Kinaseon 07-12-2023 CK [Catalytic activity/Vol] 55 U/L Normal 30-223 [facility] Comment on above: Performed By: #### B PAINTER AND DECORATOR, CMP, HS TROP, CK, PTT, CBC, PT ####[place] [id number] [facility] Creatine kinase [Enzymatic a ctivity/volume] in Serum or PlasmaOrdered By: Nancy Chaudhari on 07-12-2023 CK [Catalytic activity/Vol] 55 U/L 30-223 [facility] Creatinine [Mass/volume] in Serum or PlasmaOrdered By: Nancy Chaudhari on 07-12-2023 Creatinine [Mass/Vol] 1.82 mg/dL 0.70-1.30 [facility] ECG 12 lead ECGon 07-12-2023 ECG 12 lead ECG [facility] Main [place] [id number] Electrocardiograph Report Signed Patient: Solomon Feldman SR MR#: [id number] : 1965 Acct:[id number] Age/Sex: 57 / M ADM Date: 07/12/23 Loc: ER Room: Type: [facility] ER Attending Dr: Ordering Provider: Nancy [...] By Nancy Chaudhari MD 01/26 0135 Normal [facility] Eosinophils Auto (Bld) [#/Vo l]Ordered By: Nancy Chaudhari on 07-12-2023 Eosinophils (Bld) [#/Vol] 0.3 10*3/uL 0.0-0.45 [facility] Eosinophils/100 WBC Auto (Bl d)Ordered By: Nancy Chaudhari on 07-12-2023 Eosinophils/100 WBC (Bld) 3.3 % . [facility] Erythrocyte distribution wid th Auto (RBC) [Ratio]Ordered By: Nancy Chaudhari on 07-12-2023 Erythrocyte distribution width (RBC) [Ratio] 17.1 % 12.0-14.8 [facility] Globulin Calc (S) [Mass/Vol] Ordered By: Nancy Chaudhari on 07-12-2023 Globulin (S) [Mass/Vol] 3.1 g/dL [facility] Glucose [Mass/volume] in Ser um or [...] Hematocrit (Bld) [Volume fraction] 32.7 % 38.8-50.0 [facility] Hemoglobin [Mass/volume] in BloodOrdered By: Nancy Chaudhari on 07-12-2023 Hemoglobin (Bld) [Mass/Vol] 10.6 g/dL 13.0-17.0 [facility] INR in Platelet poor plasma by Coagulation assayOrdered By: Nancy Chaudhari on 07-12-2023 INR Coag (PPP) [Relative time] 1.1 {INR} [facility] Comment on above: INR Therapeutic Rang [...] valves: 3 - 4.5 Leukocytes [#/volume] correc joreg for nucleated erythrocytes in Blood by Automated counOrdered By: Nancy Chaudhari on 07-12-2023 WBC corrected for nucl RBC Auto (Bld) [#/Vol] 9.5 10*3/uL 4.1-10.5 [facility] Lymphocytes Auto (Bld) [#/Vo l]Ordered By: Nancy Chaudhari on 07-12-2023 Lymphocytes (Bld) [#/Vol] 1.9 10*3/uL 1.00-4.8 [facility] Lymphocytes/100 WBC Auto (Bl d)Ordered By: Nancy Chaudhari on 07-12-2023 Lymphocytes/100 WBC (Bld) 20.0 % . [facility] MCH Auto (RBC) [Entitic mass ]Ordered By: Nancy Chaudhari on 07-12-2023 MCH (RBC) [Entitic mass] 22.8 pg 27.5-35.2 [facility] MCHC Auto (RBC) [Mass/Vol]Or dered By: Nancy Chaudhari on 07-12-2023 MCHC (RBC) [Mass/Vol] 32.4 g/dL 32.5-35.6 [facility] MCV Auto (RBC) [Entitic vol] Ordered By: Nancy Chaudhari on 07-12-2023 MCV (RBC) [Entitic vol] 70.6 fL 83.5-101 [facility] Monocyte distribution width [Entitic volume] in Blood by AutomatedOrdered By: Nancy Chaudhari on 07-12-2023 Monocyte distribution width Auto (Bld) [Entitic vol] 18.12 % 0.00-20.00 [facility] Monocytes Auto (Bld) [#/Vol] Ordered By: Nancy Chaudhari on 07-12-2023 Monocytes (Bld) [#/Vol] 1.0 10*3/uL 0.0-0.8 [facility] Monocytes/100 WBC Auto (Bld) Ordered By: Nancy Chaudhari on 07-12-2023 Monocytes/100 WBC (Bld) 10.2 % . [facility] Natriuretic peptide B [Mass/ Vol]Ordered By: Nancy Chaudhari on 07-12-2023 Natriuretic peptide B (Bld) [Mass/Vol] 34.0 pg/mL 5-100 [facility] Neutrophils Auto (Bld) [#/Vo l]Ordered By: Nancy Chaudhari on 07-12-2023 Neutrophils (Bld) [#/Vol] 6.2 10*3/uL 1.8-7.7 [facility] Neutrophils/100 WBC Auto (Bl d)Ordered By: Nancy Chaudhari on 07-12-2023 Neutrophils/100 WBC (Bld) 65.4 % . [facility] No Panel InformationOrdered By: Nancy Chaudhari on 07-12-2023 Estimated GFR (CKD-EPI) 42.789 mL/Min [facility] Creatinine Clearance (Chem 54.64 [facility] Nucleated erythrocytes [Pres ence] in Blood by Automated countOrdered By: Nancy Chaudhari on 07-12-2023 Nucleated RBC Auto Ql (Bld) 0.1 /100{WBC} 0-0.5 [facility] Partial Thromboplastin Timeo n 07-12-2023 aPTT Coag (Bld) [Time] 29.4 s Normal 25.1-36.5 [facility] Comment on above: Result Comment: A he matocrit value greater than 55% may lead to inaccurate results in coagulation testing. Patients having hematocrit values >55% require a special collection tube for coagulation studies. Please contact the laboratory at [phone] for redraw instructions. PERFORMED BY: [facility] [address] [place] [address] PATHOLOGIST WALL WASHER CLIFFORD LOBATO M.D. Performed By: #### B PAINTER AND DECORATOR, CMP, HS TROP, CK, PTT, CBC, PT ####[facility] [id number] [place] [address] [facility] Platelet mean volume Auto (B ld) [Entitic vol]Ordered By: Nancy Chaudhari on 07-12-2023 Platelet mean volume (Bld) [Entitic vol] 9.1 fL 6.6-10.1 [facility] Platelets Auto (Bld) [#/Vol] Ordered By: Nancy Chaudhari on 07-12-2023 Platelets (Bld) [#/Vol] 233 10*3/uL 150-450 [facility] Potassium [Moles/volume] in Serum or PlasmaOrdered By: Nancy Chaudhari on 07-12-2023 Potassium [Moles/Vol] 3.9 mmol/L 3.5-5.1 [facility] Protein [Mass/volume] in Ser um or PlasmaOrdered By: Nancy Chaudhari on 07-12-2023 Protein [Mass/Vol] 7.0 g/dL 6.4-8.9 [facility] Prothrombin Time INRon 07-12 INR Coag (PPP) [Relative time] 1.1 {INR} Normal [facility] Comment on above: Result Comment: INR [...] 3 - 4.5 Performed By: #### B PAINTER AND DECORATOR, CMP, HS TROP, CK, PTT, CBC, PT ####[facility] [id number] [place] [id number] [facility] PT Coag (PPP) [Time] 12.1 s Normal 9.0-12.9 [facility] Comment on above: Result Comment: A he matocrit value greater than 55% may lead to inaccurate results in coagulation testing. Patients having hematocrit values >55% require a special collection tube for coagulation studies. Please contact the laboratory at [phone] for redraw instructions. Performed By: #### B PAINTER AND DECORATOR, CMP, HS TROP, CK, PTT, CBC, PT ####[facility] [place] [id number] [facility] Prothrombin time (PT)Ordered By: Nancy Chaudhari on 07-12-2023 PT Coag (PPP) [Time] 12.1 s 9.0-12.9 [facility] Comment on above: A hematocrit value g reater than 55% may lead to inaccurate results in coagulation testing. Patients having hematocrit values >55% require a special collection tube for coagulation studies. Please contact the laboratory at [phone] for redraw instructions. RBC Auto (Bld) [#/Vol]Ordere d By: Nancy Chaudhari on 07-12-2023 RBC (Bld) [#/Vol] 4.63 10*6/uL 3.90-5.60 [facility] Serum or plasma albumin/glob ulin mass ratioOrdered By: Nancy Chaudhari on 07-12-2023 Albumin/Globulin [Mass ratio] 1.3 {ratio} [facility] Serum or plasma anion gap de terminationOrdered By: Nancy Chaudhari on 07-12-2023 Anion gap [Moles/Vol] 13.4 mmol/L 6.0-15.0 [facility] Sodium [Moles/volume] in Ser um or PlasmaOrdered By: Nancy Chaudhari on 07-12-2023 Sodium [Moles/Vol] 136 mmol/L 136-145 [facility] Troponin I High Sensitivityo n 07-12-2023 Troponin I High Sensitivity 4.6 pg/mL Normal 0.0-20.0 [facility] Comment on above: Result Comment: PERF ORMED BY: [place] [address] PATHOLOGIST WALL WASHER CLIFFORD LOBATO M.D. Performed By: #### B PAINTER AND DECORATOR, CMP, HS TROP, CK, PTT, CBC, PT ####[facility] [address] [place], [place] [address] Troponin I.cardiac [Mass/vol ume] in Serum or Plasma by Detection limit <= 0.01 ng/Ordered By: Nancy Chaudhari on 07-12-2023 Troponin I.cardiac DL <= 0.01 ng/mL [Mass/Vol] 4.6 pg/mL 0.0-20.0 [facility] Urea nitrogen [Mass/volume] in Serum or PlasmaOrdered By: Nancy Chaudhari on 07-12-2023 Urea nitrogen [Mass/Vol] 16 mg/dL 7-25 [facility] WBC Auto (Bld) [#/Vol]Ordere d By: Nancy Chaudhari on 07-12-2023 WBC (Bld) [#/Vol] 9.5 10*3/uL 4.1-10.5 [facility] XR chest 1V portableon 07-12 XR chest 1V portable [facility] Main [place] [address] [place] [address] XRay Report Signed Patient: Solomon Feldman SR MR#: [id number] : 1965 Acct:[id number] Age/Sex: 57 / M ADM Date: 07/12/23 [...] Sudeep Lind M.D.07/12/2023 5:08 PM Dictation Location: [place] [address] Transcribed By: [facility] 07/12/231707 Dictated By: Sudeep Lind DO 07/12/231706 Signed By: 07/12/231707 [facility] Patient Educationon 06-02-20 Patient Education Urology Benign Prostatic Hyperplasia Benign [...] Follow these instructions at home: ? Take baby-det-zqkquqk and prescription medicines only as told by [...] the medicine (more content not included)... Normal [facility] Retail - Clinical Noteon Retail - Clinical Note [id number]#1.00TIFF [facility] Urology Office/Clinic Noteon 06-02-2023 Urology Office/Clinic Note Chief Complaint S/p to Cysto HPI Staff Sp to Cysto done @ [facility] on 02/14/23- Has not noticed any difference- [...] 24hrs. Has had recurrence of blood since December. Neg cysto 02/14/23. 4. Orchitis (N45.2: Orchitis) Pt started on Doxycycline 100 mg bid x 3 weeks per prior OV 11/23/22. No current issues. Follow-up With When Contact Information SOLEDAD HERRERA, Yeyo Blum, URL [facility] [place] [id number]- Additional Instructions: 1 month w/ cath volumes [...] heart failure) (more content not included)... Normal [facility] Comment on above: Result Comment: Elec tronically Signed By: Yeyo SILVESTRE MD\.br\Date and Time Signed: 06/02/23 12:16 EST\.br\Electronically Co-Signed By: Mattie Foster.br\Date and Time Co-Signed: 12/29/23 12:04 EST Patient Educationon 11-29-20 23 Patient Education Normal [facility] Pathology Noteon 05-02-2023 Pathology Note [id number]#1.00TIFF Normal [facility] Lab Reportson 04-14-2023 Lab Reports [id number]#1.00TIFF Normal [facility] Operative Reporton Operative Report [id number]#1.00TIFF Normal [facility] Patient Correspondenceon Patient Correspondence [id number]#1.00TIFF Normal [facility] Lab Reportson 03-31-2023 Lab Reports [id number]#1.00TIFF Normal [facility] RAD - MISCon 03-31-2023 RAD - MISC [id number]#1.00TIFF Normal [facility] Patient Correspondenceon Patient Correspondence [id number]#1.00TIFF Normal [facility] Formson 03-23-2023 Forms [id number]#1.00TIFF Normal [facility] A1C HEMOGLOBINon 03-15-2023 HbA1c (Bld) [Mass fraction] 7.5 % [email or web address] Other HbA1c (Bld) [Mass fraction]o n 03-15-2023 A1C HEMOGLOBIN [facility] Other Lab Reportson 03-09-2023 Lab Reports [id number]#1.00TIFF Normal [facility] Consultation Noteon 02-28-20 Consultation Note [id number]#1.00CD:12 7 Normal [facility] Consent for Procedure/Surger yon 02-15-2023 Consent for Procedure/Surgery [id number]#1.00CD:12 7 Normal [facility] Office Visit (Cardiology)on 02-15-2023 Follow-up visit [...] in adult Healthy Weight Tips; Status:Complete; Done: [id number] Patient Instructions Please bring all medicines, vitamins, [...] Sia HERRERA, (more content not included)... Normal [facility] Tobacco Screening.on 023 Fall risk assessment c) Not medically indicated -[facility] [facility] 250 DO Work Phone: Tobacco use status CP b) No -[facility] [facility] 250 DO Work Phone: Tobacco Screening. Yes [facility] [facility] 250 DO Work Phone: Consent for Procedure/Surger yon 02-14-2023 Consent for Procedure/Surgery [id number]#1.00CD:1 27 [facility] Consent for Procedure/Surgery [id number]#1.00CD:1 27 [facility] Consent for Treatmenton 02-03 Consent for Treatment [id number]#1.00CD:12 7 [facility] IntraOperative Documentson 0 02-14-2023 IntraOperative Documents [id number]#1.00CD:1 27 [facility] IntraOperative Documents [id number]#1.00CD:1 27 [facility] Main [place] Intraoperative Recor don 02-14-2023 Main [place] Intraoperative Record IntraOp Document Type FTURO Summary Primary Physician: Yeyo SILVESTRE MD Finalized Date/Time: 02/14/23 10:18:58 Pt. Name: SOLOMON FELDMAN SR/Sex: 1965 Male Med Rec #: [id number] Physician: Yeyo SILVESTRE MD Financial #: [id number] Pt. Type: O Room/Bed: / Admit/Disch: 02/14/23 [...] Sheri Daniel Role Performed Surgeon - Primary Accounts Receivable Assistant - Primary Scrub - Primary Time In [...] Procedure Yes Primary Surgeon Yeyo SILVESTRE MD 02/14/23 09:42:00 Stop 02/14/23 09:45:00 Anesthesia [...] RN 02/14/23 09:44:44 Case Comments Finalized By: Martínez RN, Chandrika J Document Signatures Signed By: Chandrika Martínez RN 02/14/23 09:45 Chandrika Martínez RN 02/14/23 10:18 Normal [facility] Main [place] Preoperative Recordo n 02-14-2023 Main [place] Preoperative Record Holding Area Document Type FTURO Summary Primary Physician: Yeyo SILVESTRE MD Finalized Date/Time: 02/14/23 09:01:37 Pt. Name: GASTON CHRISTIANSOLOMON/Sex: 1965 Male Med Rec #: [id number] Physician: Yeyo SILVESTRE MD Financial #: [id number] Pt. Type: O Room/Bed: / Admit/Disch: 02/14/23 [...] By: Sheri Bolivar RN 02/14/23 09:01 Normal [facility] Operative Reporton Operative Report Patient: GASTON CHRISTIAN Joe Daniel Age: 57 years Sex: Male [...] with antibiotic coverage, Follow up arranged. Normal [facility] Comment on above: Result Comment: Elec [...] including vitamins, herbs, eye drops, creams, and aebg-byv-powvxrp medicines. ? Any problems you or family [...] tells you to take them. ? Taking jdhh-xcc-pezjtkm medicines, vitamins, herbs, and supplements. Surgery safety [...] health care (more content not included)... Normal [facility] Progress Note-Physicianon Progress Note-Physician Patient: SOLOMON [...] mg = 1 tab(s), PRN, SubLingual, q5min [place] 325 mg-5 mg oral tablet 1 tab(s), [...] 278.00 / Possible Fibromyalgia / SNOMED CT [id number]-7321-97V0-5 329018W20Q7 / Confirmed Restless leg / ICD-9-CM 333.94 / Confirmed Arthritis / SNOMED CT 15MD5086-0R7Y-14S2-6O8X-M DH9S994U274 / Confirmed Hyperlipidemia / SNOMED CT 24377694 / Confirmed Smoker / SNOMED CT A584NL2H-6916-99G7-6500-F CQ3C5184QK5 / Confirmed Added secondary to documentation in Social History. Asthma / SNOMED CT 227403324 / Confirmed COPD type A / SNOMED CT 377260766 / Confirmed Head ache / SNOMED CT 42659142 / Confirmed Heart attack / SNOMED CT 99149657 / Confirmed Heart disease / SNOMED CT 08964636 / Confirmed Heart murmur / SNOMED CT 888388252 / Confirmed Urinary retention / SNOMED CT 751620091 / Confirmed BPH with obstruction/lower urinary tract symptoms / SNOMED CT 9149133074 / Confirmed Orchitis / SNOMED CT 732868714 / Confirmed Gross hematuria / SNOMED CT 210182450 / Confirmed Tobacco use / SNOMED CT UNCR6277-3363-3N66-M9F2-2 01372VG1GJ6 / Confirmed Added secondary to social history documentation. Histories Past Medical History: Active Fibromyalgia (Q3F159N4-F04G-0897-53D1- 8083272A85W5) Restless leg (333.94) Arthritis (06PS6199-6L7T-06D3-2N3L- TLA8A288H072) Hyperlipidemia (62936892) Resolved HTN [Hypertension] (401.9): Resolved. NIDDM (250.00): Resolved. GERD [Gastroesophageal reflux disease] (530.81): Resolved. CHF (congestive heart failure) (W6533670-5V6V-5Z5N-3L60- S288710Z9Z48): Resolved. [place] (myocardial infarction) (607V5PFA-10Z7-7K4R-6P77- 69395P14C0MQ): Resolved. Family History: Diabetes mellitus Mother Heart disease Mother Alcoholism Brother Drug addiction Brother Acute myocardial infarction Mother Grandparent Procedure history: Bilateral Eye Surgery. Comments: 07/10/2014 17:25 ALESHA Cormier RN, Kati bilateral cataracts with iol implants Bilateral Carpal Tunnel Surgery. cardiac stents. Appendectomy (415836999). Colonoscopy (517785719). Cataract extraction and insertion of intraocular lens (0876445870). Procedure on back (472079452). Social History Social & Psychosocial Habits Alcohol 01/16/2013 Risk Assessment: Denies Alcohol Use Substance Abuse 01/16/2013 Risk Assessment: Denies Substance Abuse Tobacco 01/16/2013 Tobacco Use: Current Type: Cigarettes Comment: 1 ppd - 01/16/2013 23:11 - MARIA GUADALUPE KAUFFMANDominga María 01/30/2023 Tobacco Use: 10 or more cigarettes [...] procedure such (more content not included)... Normal [facility] Comment on above: Result Comment: Elec tronically Signed By: SOLEDAD HERRERA, Yeyo Blum\.br\Date and Time Signed: 02/14/23 09:58 EDT Consent for Treatmenton Consent for Treatment [id number]#1.00CD:12 7 [facility] Ambulatory Visit Summaryon 0 01-30-2023 Ambulatory Visit Summary SOLOMON FELDMAN SR :1965 Visit Date:01/30/2023 Ambulatory Visit Instructions Your Diagnosis Urinary retention Gross hematuria BPH with obstruction/lower urinary tract symptoms Orchitis Your Care Team Attending Physician - Yeyo SILVESTRE MD Primary Care Physician - JENARO [place]CH DO This Is Your Medications List Contact prescribing physician if questions or concerns acetaminophen-hydrocodone ([place] 325 mg-5 mg oral tablet) albuterol (ProAir [...] Following Appointments Follow Up with SOLEDAD HERRERA, Yeyo Blum, ROSALIA When: Comments: sched cysto/uros Where: [facility] [address] , [place] [address]- [phone] Medications What How Much When Instructions Unchanged acetaminophen-hydrocodone ([place] 325 mg-5 mg oral tablet) 1 Tablets [...] or vivian (more content not included)... Normal [facility] Patient Educationon 01-31-20 23 Patient Education [...] including vitamins, herbs, eye drops, creams, and lwgq-tzt-cjferrr medicines. ? Whether you are or may [...] be (more content not included)... Normal [facility] Urology Office/Clinic Noteon 01-30-2023 Urology [...] URL [facility] [address], [place] [address] [phone] Additional Instructions: sched cysto/uros Patient Education Urodynamic [...] failure) GERD [Gastroesophageal reflux disease] HTN [Hypertension] [place] (myocardial infarction) NIDDM Procedure/Surgical History Appendectomy, Bilateral [...] mg, BID (more content not included)... Normal [facility] Comment on above: Result Comment: Elec tronically Signed By: Saima Sutton\.br\Date and Time Signed: 01/30/23 11:38 EDT [facility] CARDIAC STRESS/REST INJE CTIONon 01-25-2023 [facility] CARDIAC STRESS/REST INJECTION Patient Name: SOLOMON FELDMAN STUDY: MYOCARDIAL PERFUSION STRESS TEST WITH EXERCISE CONVERTED TO LEXISCAN Performing facility: [facility], [address] [place] [address], [address], [place] [address] [facility] Provider: Dolores Feldman RN, CELL TENDER HELPER PCP: Dr. Jenaro Lynch Supervising provider: Pascale Purvis MD, [facility] INDICATION: Anginal equivalent CAD; HISTORY: Gender: M; Age: 57 y/o ; Height: 182.88 cm; Weight: 97.0488706 kg. High Cholesterol; CAD; Diabetes; HTN; Palpitations; Chest Pain; Quit smoking unknown years ago. COMPARISON: Previous nuclear testing completed at [facility]. ACCESSION NUMBER(S): [id number]; [id number]; [id number] ORDERING CLINICIAN: DOLORES FELDMAN TECHNIQUE: ONE DAY [...] Electronically signed by: PASCALE PURVIS MD Normal [facility] No Panel Informationon 01-25 Normal -[facility] [facility] 250 DO Work [...] contact the office if new symptoms arise. 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 Normal [facility] Tobacco Screening.on 023 Adult depression screening assessment No [facility] 600 DO Work Phone: Tobacco use status [facility] b) No [facility] 600 DO Work Phone: Ambulatory Visit Summaryon 0 12-28-2022 Ambulatory Visit Summary GASTON CHRISTIAN, SOLOMON María :1965 Visit Date:12/28/2022 Ambulatory Visit Instructions Your Care Team Attending Physician - SOLEDAD HERRERA, Yeyo Blum Primary Care Physician - JENARO [place]CH DO This Is Your Medications List acetaminophen-hydrocodone ([place] 325 mg-5 mg oral tablet) albuterol (ProAir [...] HERRERA, Yeyo Blum Where: [facility] Aurelio Normal [facility] Formson 11-24-2022 Forms [id number]#1.00CD:127 Normal [facility] Screenson 11-24-2022 Screens [id number]#1.00CD:1 27 Normal [facility] Patient Educationon 11-24-19 23 Patient Education [...] provider. Document Revised: 08/11/2021 Document Reviewed: 05/07/2021 [employer] Patient Education ? 2021 PENRITH. Marquise [facility] Urology Office/Clinic Noteon 11-23-2022 Urology [...] bid x 3 weeks. Rx sent to [facility] [place]. Follow-up With When Contact Information SOLEDAD HERRERA, Yeyo Blum, URL [facility] [address] , [place] [address]- Additional Instructions: 1 month for cath change [...] failure) GERD [Gastroesophageal reflux disease] HTN [Hypertension] [place] (myocardial infarction) NIDDM Procedure/Surgical History Appendectomy, Bilateral Carpal Tunnel Surgery, Bilateral Eye Surgery, cardiac stents, [place] (more content not included)... Normal [facility] Comment on above: Result Comment: Elec tronically Signed By: Yeyo SILVESTRE MD\.br\Date and Time Signed: 11/23/22 12:47 EDT\.br\Electronically Co-Signed By: Lorie Leblanc\.br\Date and Time Co-Signed: 11/23/22 12:46 EDT A1C with Estimated Average G [facility] 09-27-2022 Glucose [Mass/Vol] 246 mg/dL Normal [facility] Comment on above: Order Comment: Reaso n for Exam Type 2 diabetes mellitus with circulatory disorder Result Comment: PERF ORMED BY: [place] [address] PATHOLOGIST WALL WASHER CLIFFORD LOBATO M.D. Performed By: #### A 1C [facility] eA #### [facility] [address] [place] [address] HbA1c (Bld) [Mass fraction] 10.2 % High 4.3-5.6 [facility] Comment on above: Order Comment: Reaso n for Exam Type 2 diabetes mellitus with circulatory disorder Result Comment: Incr eased risk for diabetes: 5.7 - 6.4 diabetes: >6.4 glycemic control for adults with diabetes: <7.0 Performed By: #### A 1C WT eA #### [facility] [address] [place] [id number] [facility] Alanine aminotransferase [En zymatic activity/volume] in Serum or PlasmaOrdered By: Jenaro Lynch on 09-27-2022 ALT [Catalytic activity/Vol] 15 U/L 7-52 [facility] Albumin [Mass/volume] in Ser um or Plasma by Bromocresol green (BCG) dye binding methoOrdered By: Jenaro Lynch on 09-27-2022 Albumin BCG dye [Mass/Vol] 4.1 g/dL 3.5-5.7 [facility] Alkaline phosphatase [Enzyma tic activity/volume] in Serum or PlasmaOrdered By: Jenaro Lynch on 09-27-2022 ALP [Catalytic activity/Vol] 116 U/L 34-104 [facility] Aspartate aminotransferase [ Enzymatic activity/volume] in Serum or PlasmaOrdered By: Jenaro Lynch on 09-27-2022 AST [Catalytic activity/Vol] 15 U/L 13-39 [facility] Basophils Auto (Bld) [#/Vol] Ordered By: Jenaro Lynch on 09-27-2022 Basophils (Bld) [#/Vol] 0.1 10*3/uL 0.0-0.2 [facility] Basophils/100 WBC Auto (Bld) Ordered By: Jenaro Lynch on 09-27-2022 Basophils/100 WBC (Bld) 1.1 % . [facility] Bilirubin.total [Mass/volume ] in Serum or PlasmaOrdered By: Jenaro Lynch on 09-27-2022 Bilirubin [Mass/Vol] 0.4 mg/dL 0.3-1.0 [facility] Calcium [Mass/volume] in Ser um or PlasmaOrdered By: Jenaro Lynch on 09-27-2022 Calcium [Mass/Vol] 8.8 mg/dL 8.6-10.3 [facility] Carbon dioxide, total [Moles /volume] in Serum or PlasmaOrdered By: Jenaro Lynch on 09-27-2022 CO2 [Moles/Vol] 27.2 mmol/L 21.0-31.0 [facility] Chloride [Moles/volume] in S ilia or PlasmaOrdered By: Jenaro Lynch on 09-27-2022 Chloride [Moles/Vol] 99 mmol/L 98-107 [facility] Cholesterol [Mass/volume] in Serum or PlasmaOrdered By: Jenaro Lynch on 09-27-2022 Cholesterol [Mass/Vol] 104 mg/dL 140-200 [facility] [place] [facility] Comment on above: Chol less than 200 m g/dl low riskChol 201-239 mg/dl borderline riskChol 240 mg/dl and greater high risk Cholesterol in LDL Calc [Mas s/Vol]Ordered By: Jenaro Lynch on 09-27-2022 Cholesterol in LDL [Mass/Vol] TNP [facility] Comment on above: Test not performed Cholesterol in LDL [Mass/vol ume] in Serum or PlasmaOrdered By: Jenaro Lynch on 09-27-2022 Cholesterol in LDL [Mass/Vol] 38 mg/dL 0-100 [facility] Comment on above: LDL ATP III CLASSIFI CATIONLDL less than 100 mg/dL OptimalLDL 100-129 mg/dL Near or above optimalLDL 130-159 mg/dL Borderline highLDL 160-189 mg/dL HighLDL greater than 189 mg/dL Very high Cholesterol in VLDL Calc [Ma ss/Vol]Ordered By: Jenaro Lynch on 09-27-2022 Cholesterol in VLDL [Mass/Vol] 99 mg/dL [facility] Complete Blood Count Auto Di ffon 09-27-2022 Basophils (Bld) [#/Vol] 0.1 10*3/uL Normal 0.0-0.2 [facility] Comment on above: Order Comment: Reaso n for Exam Hyperlipidemia;Type 2 diabetes mellitus with circulatory dis Result Comment: PERF ORMED BY: [place] [address] PATHOLOGIST WALL WASHER CLIFFORD LOBATO M.D. Performed By: #### C BC #### [facility] [address] [place] [address] [place] Basophils/100 WBC (Bld) 1.1 % Normal . [facility] Comment on above: Order Comment: Reaso n for Exam Hyperlipidemia;Type 2 diabetes mellitus with circulatory dis Performed By: #### C BC #### [facility] [address] [place] [address] [place] Eosinophils (Bld) [#/Vol] 0.7 10*3/uL High 0.0-0.45 [facility] Comment on above: Order Comment: Reaso n for Exam Hyperlipidemia;Type 2 diabetes mellitus with circulatory dis Performed By: #### C BC #### [facility] [address] [place] [id number] [place] Eosinophils/100 WBC (Bld) 5.9 % Normal . [facility] Comment on above: Order Comment: Reaso n for Exam Hyperlipidemia;Type 2 diabetes mellitus with circulatory dis Performed By: #### C BC #### [address] Erythrocyte distribution width (RBC) [Ratio] 16.0 % High 12.0-14.8 [facility] Comment on above: Order Comment: Reaso n for Exam Hyperlipidemia;Type 2 diabetes mellitus with circulatory dis Performed By: #### C BC #### [address] Hematocrit (Bld) [Volume fraction] 41.0 % Normal 38.8-50.0 [facility] Comment on above: Order Comment: Reaso n for Exam Hyperlipidemia;Type 2 diabetes mellitus with circulatory dis Performed By: #### C BC #### [place] [address] [place] Hemoglobin (Bld) [Mass/Vol] 13.2 g/dL Normal 13.0-17.0 [facility] Comment on above: Order Comment: Reaso n for Exam Hyperlipidemia;Type 2 diabetes mellitus with circulatory dis Performed By: #### C BC #### [place] [address] [place] Lymphocytes (Bld) [#/Vol] 2.3 10*3/uL Normal 1.00-4.8 [facility] Comment on above: Order Comment: Reaso n for Exam Hyperlipidemia;Type 2 diabetes mellitus with circulatory dis Performed By: #### C BC #### [place] [address] [place] Lymphocytes/100 WBC (Bld) 18.2 % Normal . [facility] Comment on above: Order Comment: Reaso n for Exam Hyperlipidemia;Type 2 diabetes mellitus with circulatory dis Performed By: #### C BC #### [facility] [address] MCH (RBC) [Entitic mass] 23.9 pg Low 27.5-35.2 [facility] Comment on above: Order Comment: Reaso n for Exam Hyperlipidemia;Type 2 diabetes mellitus with circulatory dis Performed By: #### C BC #### [address] MCV (RBC) [Entitic vol] 74.3 fL Low 83.5-101 [facility] Comment on above: Order Comment: Reaso n for Exam Hyperlipidemia;Type 2 diabetes mellitus with circulatory dis Performed By: #### C BC #### [address] Mean Corpuscular HGB Conc 32.2 g/dL Low 32.5-35.6 [facility] Comment on above: Order Comment: Reaso n for Exam Hyperlipidemia;Type 2 diabetes mellitus with circulatory dis Performed By: #### C BC #### [place] [address] [place] Monocytes (Bld) [#/Vol] 1.0 10*3/uL High 0.0-0.8 [facility] Comment on above: Order Comment: Reaso n for Exam Hyperlipidemia;Type 2 diabetes mellitus with circulatory dis Performed By: #### C BC #### [place] [address] [place] Monocytes/100 WBC (Bld) 7.9 % Normal . [facility] Comment on above: Order Comment: Reaso n for Exam Hyperlipidemia;Type 2 diabetes mellitus with circulatory dis Performed By: #### C BC #### [place] [address] [place] Neutrophils (Bld) [#/Vol] 8.3 10*3/uL High 1.8-7.7 [facility] Comment on above: Order Comment: Reaso n for Exam Hyperlipidemia;Type 2 diabetes mellitus with circulatory dis Performed By: #### C BC #### [place] [address] [place] Neutrophils/100 WBC (Bld) 66.9 % Normal . [facility] Comment on above: Order Comment: Reaso n for Exam Hyperlipidemia;Type 2 diabetes mellitus with circulatory dis Performed By: #### C BC #### [facility] [address] NRBC% 0.1 /100{WBC} Normal 0-0.5 [facility] Comment on above: Order Comment: Reaso n for Exam Hyperlipidemia;Type 2 diabetes mellitus with circulatory dis Performed By: #### C BC #### [facility] [address] Platelet mean volume (Bld) [Entitic vol] 9.1 fL Normal 6.6-10.1 [facility] Comment on above: Order Comment: Reaso n for Exam Hyperlipidemia;Type 2 diabetes mellitus with circulatory dis Performed By: #### C BC #### [facility] [address] Platelets (Bld) [#/Vol] 209 10*3/uL Normal 150-450 [facility] Comment on above: Order Comment: Reaso n for Exam Hyperlipidemia;Type 2 diabetes mellitus with circulatory dis Performed By: #### C BC #### [address] RBC (Bld) [#/Vol] 5.52 10*6/uL Normal 3.90-5.60 [facility] Comment on above: Order Comment: Reaso n for Exam Hyperlipidemia;Type 2 diabetes mellitus with circulatory dis Performed By: #### C BC #### [place] [address] [place] WBC (Bld) [#/Vol] 12.4 10*3/uL High 4.1-10.5 [facility] Comment on above: Order Comment: Reaso n for Exam Hyperlipidemia;Type 2 diabetes mellitus with circulatory dis Performed By: #### C BC #### [address] Comprehensive Metabolic Pane bárbara 09-27-2022 Albumin [Mass/Vol] 4.1 g/dL Normal 3.5-5.7 [facility] Comment on above: Order Comment: Reaso n for Exam Hyperlipidemia;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 Reason for Exam Gout Performed By: #### T SH3, LDLD, CMP, URIC, LIPID #### [facility] [address] Albumin/Globulin [Mass ratio] 1.4 {ratio} Normal [facility] Comment on above: Order Comment: Reaso n for Exam Hyperlipidemia;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 Reason for Exam Gout Performed By: #### T SH3, LDLD, CMP, URIC, LIPID #### [facility] [address] ALP [Catalytic activity/Vol] 116 U/L High 34-104 [facility] Comment on above: Order Comment: Reaso n for Exam Hyperlipidemia;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 Reason for Exam Gout Performed By: #### T SH3, LDLD, CMP, URIC, LIPID #### [facility] [address] ALT [Catalytic activity/Vol] 15 U/L Normal 7-52 [facility] Comment on above: Order Comment: Reaso n for Exam Hyperlipidemia;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 Reason for Exam Gout Performed By: #### T SH3, LDLD, CMP, URIC, LIPID #### [facility] [address] [place] [address] Anion gap [Moles/Vol] 14.1 mmol/L Normal 6.0-15.0 [facility] Comment on above: Order Comment: Reaso n for Exam Hyperlipidemia;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 Reason for Exam Gout Performed By: #### T SH3, LDLD, CMP, URIC, LIPID #### [facility] [address] [place] [id number] [place] AST [Catalytic activity/Vol] 15 U/L Normal 13-39 [facility] Comment on above: Order Comment: Reaso n for Exam Hyperlipidemia;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 Reason for Exam Gout Performed By: #### T SH3, LDLD, CMP, URIC, LIPID #### [facility] [address] [place] [address] [place] Bilirubin [Mass/Vol] 0.4 mg/dL Normal 0.3-1.0 [facility] Comment on above: Order Comment: Reaso n for Exam Hyperlipidemia;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 Reason for Exam Gout Performed By: #### T SH3, LDLD, CMP, URIC, LIPID #### [facility] [address] [place] [id number] [facility] Calcium [Mass/Vol] 8.8 mg/dL Normal 8.6-10.3 [facility] Comment on above: Order Comment: Reaso n for Exam Hyperlipidemia;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 Reason for Exam Gout Performed By: #### T SH3, LDLD, CMP, URIC, LIPID #### [facility] [address] Chloride [Moles/Vol] 99 mmol/L Normal 98-107 [facility] Comment on above: Order Comment: Reaso n for Exam Hyperlipidemia;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 Reason for Exam Gout Performed By: #### T SH3, LDLD, CMP, URIC, LIPID #### [facility] [address] [place] [address] [place] CO2 [Moles/Vol] 27.2 mmol/L Normal 21.0-31.0 [facility] Comment on above: Order Comment: Reaso n for Exam Hyperlipidemia;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 Reason for Exam Gout Performed By: #### T SH3, LDLD, CMP, URIC, LIPID #### [facility] [address] [place] [id number] [place] Creatinine [Mass/Vol] 1.84 mg/dL High 0.70-1.30 [facility] Comment on above: Order Comment: Reaso n for Exam Hyperlipidemia;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 Reason for Exam Gout Performed By: #### T SH3, LDLD, CMP, URIC, LIPID #### [facility] [address] [place] [id number] [place] GFR/1.73 sq M.predicted MDRD (S/P/Bld) [Vol rate/Area] 42.232 mL/min/{1.73_m2} Normal [facility] Comment on above: Order Comment: Reaso n for Exam Hyperlipidemia;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 Reason for Exam Gout Performed By: #### T SH3, LDLD, CMP, URIC, LIPID #### [facility] [address] Globulin (S) [Mass/Vol] 2.9 g/dL Normal [facility] Comment on above: Order Comment: Reaso n for Exam Hyperlipidemia;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 Reason for Exam Gout Performed By: #### T SH3, LDLD, CMP, URIC, LIPID #### [facility] [address] Glucose [Mass/Vol] 225 mg/dL High 70-100 [...] T SH3, LDLD, CMP, URIC, LIPID #### [facility] [address] Potassium [Moles/Vol] 4.3 mmol/L Normal 3.5-5.1 [facility] Comment on above: Order Comment: Reaso n for Exam Hyperlipidemia;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 Reason for Exam Gout Performed By: #### T SH3, LDLD, CMP, URIC, LIPID #### [facility] [address] Protein [Mass/Vol] 7.0 g/dL Normal 6.4-8.9 [facility] Comment on above: Order Comment: Reaso n for Exam Hyperlipidemia;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 Reason for Exam Gout Performed By: #### T SH3, LDLD, CMP, URIC, LIPID #### [facility] [address] Sodium [Moles/Vol] 136 mmol/L Normal 136-145 [facility] Comment on above: Order Comment: Reaso n for Exam Hyperlipidemia;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 Reason for Exam Gout Performed By: #### T SH3, LDLD, CMP, URIC, LIPID #### [facility] [address] [place] [address] [place] Urea nitrogen [Mass/Vol] 15 mg/dL Normal 12-27 [facility] Comment on above: Order Comment: Reaso n for Exam Hyperlipidemia;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 Reason for Exam Gout Performed By: #### T SH3, LDLD, CMP, URIC, LIPID #### [facility] [address] [place] [address] [place] Creatinine [Mass/volume] in Serum or PlasmaOrdered By: Jenaro Lynch on 09-27-2022 Creatinine [Mass/Vol] 1.84 mg/dL 0.70-1.30 [facility] Eosinophils Auto (Bld) [#/Vo l]Ordered By: Jenaro Lynch on 09-27-2022 Eosinophils (Bld) [#/Vol] 0.7 10*3/uL 0.0-0.45 [facility] Eosinophils/100 WBC Auto (Bl d)Ordered By: Jenaro Lynch on 09-27-2022 Eosinophils/100 WBC (Bld) 5.9 % . [facility] Erythrocyte distribution wid th Auto (RBC) [Ratio]Ordered By: Jenaro Lynch on 09-27-2022 Erythrocyte distribution width (RBC) [Ratio] 16.0 % 12.0-14.8 [facility] Globulin Calc (S) [Mass/Vol] Ordered By: Jenaro Lynch on 09-27-2022 Globulin (S) [Mass/Vol] 2.9 g/dL [facility] Glucose [Mass/volume] in Ser um or [...] Hematocrit (Bld) [Volume fraction] 41.0 % 38.8-50.0 [facility] Hemoglobin [Mass/volume] in BloodOrdered By: Jenaro Lynch on 09-27-2022 Hemoglobin (Bld) [Mass/Vol] 13.2 g/dL 13.0-17.0 [facility] LDL Cholesterol Measuredon 0 09-27-2022 LDL Cholesterol Measured 38 mg/dL Normal 0-100 [facility] Comment on above: Order Comment: Reaso [...] #### T SH3, LDLD, CMP, URIC, LIPID ####[facility] [id number] Leukocytes [#/volume] correc jorge for nucleated erythrocytes in Blood by Automated counOrdered By: Jenaro Lynch on 09-27-2022 WBC corrected for nucl RBC Auto (Bld) [#/Vol] 12.4 10*3/uL 4.1-10.5 [facility] Lipid Panelon 09-27-2022 Cholesterol [Mass/Vol] 104 mg/dL Low 140-200 [facility] Comment on above: Order Comment: Reaso n for Exam Hyperlipidemia;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 Reason for Exam Gout Result Comment: Chol less than 200 mg/dl low risk Chol 201-239 mg/dl borderline risk Chol 240 mg/dl and greater high risk Performed By: #### T SH3, LDLD, CMP, URIC, LIPID #### [facility] [address] [place] [address] [place] Cholesterol in HDL [Mass/Vol] 21 mg/dL Low 29-71 [facility] Comment on above: Order Comment: Reaso n for Exam Hyperlipidemia;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 Reason for Exam Gout Result Comment: HDL CHOL ATP-III CLASSIFICATION Cardiovascular Risk HDL > or equal to 60 mg/dL LOW HDL < 40 mg/dL HIGH Performed By: #### T SH3, LDLD, CMP, URIC, LIPID #### [facility] [address] Cholesterol.total/Chol esterol in HDL [Mass ratio] 5.0 {ratio} Normal <5.0 [facility] Comment on above: Order Comment: Reaso n for Exam Hyperlipidemia;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 Reason for Exam Gout Performed By: #### T SH3, LDLD, CMP, URIC, LIPID #### [facility] [address] LDL Cholesterol,Calculated Not performed Normal 0-100 [facility] Comment on above: Order Comment: Reaso n for Exam Hyperlipidemia;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 Reason for Exam Gout Performed By: #### T SH3, LDLD, CMP, URIC, LIPID #### [facility] [address] Triglyceride w/Reflex 497 mg/dL High 0-149 [facility] Comment on above: Order Comment: [...] T SH3, LDLD, CMP, URIC, LIPID #### [facility] [address] VLDL CHOLESTEROL 99 mg/dL Normal [facility] Comment on above: Order Comment: Reaso n for Exam Hyperlipidemia;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 Reason for Exam Gout Performed By: #### T SH3, LDLD, CMP, URIC, LIPID #### [facility] [address] [place] [address] [place] Lymphocytes Auto (Bld) [#/Vo l]Ordered By: Jenaro Lynch on 09-27-2022 Lymphocytes (Bld) [#/Vol] 2.3 10*3/uL 1.00-4.8 [facility] Lymphocytes/100 WBC Auto (Bl d)Ordered By: Jenaro Lynch on 09-27-2022 Lymphocytes/100 WBC (Bld) 18.2 % . [facility] MCH Auto (RBC) [Entitic mass ]Ordered By: Jenaro Lynch on 09-27-2022 MCH (RBC) [Entitic mass] 23.9 pg 27.5-35.2 [facility] MCHC Auto (RBC) [Mass/Vol]Or dered By: Jenaro Lynch on 09-27-2022 MCHC (RBC) [Mass/Vol] 32.2 g/dL 32.5-35.6 [facility] MCV Auto (RBC) [Entitic vol] Ordered By: Jenaro Lynch on 09-27-2022 MCV (RBC) [Entitic vol] 74.3 fL 83.5-101 [facility] Monocytes Auto (Bld) [#/Vol] Ordered By: Jenaro Lynch on 09-27-2022 Monocytes (Bld) [#/Vol] 1.0 10*3/uL 0.0-0.8 [facility] Monocytes/100 WBC Auto (Bld) Ordered By: Jenaro Lynch on 09-27-2022 Monocytes/100 WBC (Bld) 7.9 % . [facility] Neutrophils Auto (Bld) [#/Vo l]Ordered By: Jenaro Lynch on 09-27-2022 Neutrophils (Bld) [#/Vol] 8.3 10*3/uL 1.8-7.7 [facility] Neutrophils/100 WBC Auto (Bl d)Ordered By: Jenaro Lynch on 09-27-2022 Neutrophils/100 WBC (Bld) 66.9 % . [facility] No Panel InformationOrdered By: Jenaro Lynch on 09-27-2022 Estimated GFR (CKD-EPI) 42.232 mL/Min [facility] Creatinine Clearance (Chem N/A [facility] Nucleated erythrocytes [Pres ence] in Blood by Automated countOrdered By: Jenaro Lynch on 09-27-2022 Nucleated RBC Auto Ql (Bld) 0.1 /100{WBC} 0-0.5 [facility] Platelet mean volume Auto (B ld) [Entitic vol]Ordered By: Jenaro Lynch on 09-27-2022 Platelet mean volume (Bld) [Entitic vol] 9.1 fL 6.6-10.1 [facility] Platelets Auto (Bld) [#/Vol] Ordered By: Jenaro Lynch on 09-27-2022 Platelets (Bld) [#/Vol] 209 10*3/uL 150-450 [facility] Potassium [Moles/volume] in Serum or PlasmaOrdered By: Jenaro Lynch on 09-27-2022 Potassium [Moles/Vol] 4.3 mmol/L 3.5-5.1 [facility] Protein [Mass/volume] in Ser um or PlasmaOrdered By: Jenaro Lynch on 09-27-2022 Protein [Mass/Vol] 7.0 g/dL 6.4-8.9 [facility] RBC Auto (Bld) [#/Vol]Ordere d By: Jenaro Lynch on 09-27-2022 RBC (Bld) [#/Vol] 5.52 10*6/uL 3.90-5.60 [facility] Serum or plasma albumin/glob ulin mass ratioOrdered By: Jenaro Lynch on 09-27-2022 Albumin/Globulin [Mass ratio] 1.4 {ratio} [facility] Serum or plasma anion gap de terminationOrdered By: Jenaro Lynch on 09-27-2022 Anion gap [Moles/Vol] 14.1 mmol/L 6.0-15.0 [facility] Serum or plasma high density lipoprotein (HDL) cholesterol measurementOrdered By: Jenaro Lynch on 09-27-2022 Cholesterol in HDL [Mass/Vol] 21 mg/dL 29-71 [facility] Comment on above: HDL CHOL ATP-III CLA SSIFICATION Cardiovascular RiskHDL > or equal to 60 mg/dL LOWHDL < 40 mg/dL HIGH Serum or plasma total choles terol/high density lipoprotein (HDL) cholesterol mass ratOrdered By: Jenaro Lynch on 09-27-2022 Cholesterol.total/Chol esterol in HDL [Mass ratio] 5.0 {ratio} <5.0 [facility] Sodium [Moles/volume] in Ser um or PlasmaOrdered By: Jenaro Lynch on 09-27-2022 Sodium [Moles/Vol] 136 mmol/L 136-145 [facility] Thyroid Stimulating Hormoneo n 09-27-2022 TSH Qn 3.62 m[IU]/L Normal 0.45-5.33 [facility] Comment on above: Order Comment: Reaso n for Exam Hyperlipidemia;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 Reason for Exam Gout Result Comment: PERF ORMED BY: [facility] [address] [place] [address] PATHOLOGIST WALL WASHER CLIFFORD LOBATO M.D. Performed By: #### T SH3, LDLD, CMP, URIC, LIPID #### [facility] [address] Order Comment: Reaso n for Exam Hyperlipidemia;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 Reason for Exam Gout Performed By: #### T SH3, LDLD, CMP, URIC, LIPID ####[facility] [id number] Thyrotropin [Units/volume] i n Serum or PlasmaOrdered By: Jenaro Lynch on 09-27-2022 TSH Qn 3.62 m[IU]/L 0.45-5.33 [facility] Triglyceride [Mass/volume] i n Serum or PlasmaOrdered By: Jenaro Lynch on 09-27-2022 Triglyceride [Mass/Vol] 497 mg/dL 0-149 [facility] Comment on above: If the triglyceride [...] 09-27-2022 Urate [Mass/Vol] 6.2 mg/dL 2.4-7.6 [facility] Urea nitrogen [Mass/volume] in Serum or PlasmaOrdered By: Jenaro Lynch on 09-27-2022 Urea nitrogen [Mass/Vol] 15 mg/dL 12-27 [facility] Uric Acidon 09-27-2022 Urate [Mass/Vol] 6.2 mg/dL Normal 2.4-7.6 [facility] Comment on above: Order Comment: Reaso n for Exam Hyperlipidemia;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 Reason for Exam Gout Performed By: #### T SH3, LDLD, CMP, URIC, LIPID #### [address] WBC Auto (Bld) [#/Vol]Ordere d By: Jenaro Lynch on 09-27-2022 WBC (Bld) [#/Vol] 12.4 10*3/uL 4.1-10.5 [facility] MR head/brain wo conon 09-03 MR head/brain wo con [facility] [place] [address] [place] [address] MRI Report Signed Patient: Solomon Feldman SR MR#: [id number] : 1965 Acct:[id number] Age/Sex: 57 / M ADM Date: 09/02/22 Loc: MR Room: Type: [facility] Attending Dr: Shana Mclaughlin PA-C Copies to: [...] ISCHEMIC CHANGES. Impression dictated by: Negro Marks Jr. DMaryOMary09/03/2022 8:37 AM Dictation Location: [id number]-15 Transcribed By: PWS 09/03/22 0837 Dictated By: Negro Marks Jr, DO 09/03/22 0830 Signed By: 09/03/22 0837 Normal [facility] A1C HEMOGLOBINon 02-15-2022 HbA1c (Bld) [Mass fraction] % [email or web address] Other HbA1c (Bld) [Mass fraction]o n 02-15-2022 A1C HEMOGLOBIN [employer] Other Tobacco Screening.on 022 Adult depression screening assessment No -[facility] [facility] [address] DO Work Phone: Tobacco use status [facility] b) No [facility] [facility] DO Work Phone: A1C HEMOGLOBINon 07-27-2021 HbA1c (Bld) [Mass fraction] 11.8 % [email or web address] Other HbA1c (Bld) [Mass fraction]o n 07-27-2021 A1C HEMOGLOBIN [employer] Other Vital Signs Date Time Vital Sign Value Performing Clinician Facility 07-12-2023 18:03-0500 Diastolic blood pressure 73 mm[Hg] DO Jenaro Jetts Work Phone: [facility] 07-12-2023 18:03-0500 Heart rate 76 /min DO Jenaro Jetts Work Phone: [facility] 07-12-2023 18:03-0500 Respiratory rate 20 /min DO Jenaro Kuns Work Phone: [facility] 07-12-2023 18:03-0500 SaO2% (BldA) [Mass fraction] 98 % DO Jenaro Kuns Work Phone: [facility] 07-12-2023 18:03-0500 Systolic blood pressure 125 mm[Hg] DO Jenaro Kuns Work Phone: [facility] 07-12-2023 16:15-0500 Body height 182.88 cm DO Jnearo Kuns Work Phone: [facility] 07-12-2023 16:15-0500 Body temperature 98.9 [degF] DO Jenaro Fraustojoe Work Phone: [facility] 07-12-2023 16:15-0500 Body weight 99.25 kg DO Jenarogorge Lynch Work Phone: [facility] 06-02-2023 10:56-0500 Blood Pressure Location Yeyo SILVESTRE [facility] 06-02-2023 10:56-0500 Body temperature 96.98 [degF] Yeyo SILVESTRE [facility] 06-02-2023 10:56-0500 Diastolic blood pressure 84 mm[Hg] Yeyo SILVESTRE [facility] 06-02-2023 10:56-0500 Heart rate 68 /min Yeyo SILVESTRE [facility] 06-02-2023 10:56-0500 Systolic blood pressure 124 mm[Hg] Yeyo SILVESTRE [facility] 04-06-2023 13:15-0400 Body height 180.34 cm Jenaro Lynch Other [employer] [facility] [employer] Other 04-06-2023 13:15-0400 Body mass index (BMI) [Ratio] 29.43 kg/m2 Jenaro Lynch Other [email or web address] Other 04-06-2023 13:15-0400 Body weight 95.71 kg Jenaro Lynch Other [email or web address] Other 04-06-2023 13:15-0400 Diastolic blood pressure 70 mm[Hg] Jenaro Lynch Other [email or web address] Other 04-06-2023 13:15-0400 Respiratory rate 18 /min Jenaro Lynch Other [email or web address] Other 04-06-2023 13:15-0400 SaO2% (BldA) [Mass fraction] 97 % Jenaro Lynch Other [email or web address] Other 04-06-2023 13:15-0400 Systolic blood pressure 100 mm[Hg] Jenaro Lynch Other [email or web address] Other 03-15-2023 08:30-0400 Body height 180.34 cm Jenaro Lynch Other [email or web address] Other 03-15-2023 08:30-0400 Body mass index (BMI) [Ratio] 29.01 kg/m2 Jenaro Syed Other [email or web address] Other 03-15-2023 08:30-0400 Body weight 94.35 kg Jenaro Syed Other [email or web address] Other 03-15-2023 08:30-0400 Diastolic blood pressure 62 mm[Hg] Jenaro Lynch Other [email or web address] Other 03-15-2023 08:30-0400 Respiratory rate 16 /min Jenaro Lynch Other [email or web address] Other 03-15-2023 08:30-0400 SaO2% (BldA) [Mass fraction] 97 % Jenaro Lynch Other [email or web address] Other 03-15-2023 08:30-0400 Systolic blood pressure 88 mm[Hg] Jenaro Lynch Other [facility] [employer] Other 02-15-2023 10:04-0400 Body height 182.88 cm Jenaro Lynch Work Phone: [facility] 250 DO Work Phone: 02-15-2023 10:04-0400 Body mass index (BMI) [Ratio] 28.62 kg/m2 Jenaro Lynch Work Phone: [facility] 250 DO Work Phone: 02-15-2023 10:04-0400 Body surface area Derived from formula 2.18 m2 Jenaro Lynch Work Phone: [facility] 250 DO Work Phone: 02-15-2023 10:04-0400 Body weight 95.71 kg Jenaro Lynch Work Phone: [facility] 250 DO Work Phone: 02-15-2023 10:04-0400 Diastolic blood pressure 70 mm[Hg] Jenaro Lynch Work Phone: [facility] 250 DO Work Phone: 02-15-2023 10:04-0400 Heart rate 76 /min Jenaro Lynch Work Phone: [facility] 250 DO Work Phone: 02-15-2023 10:04-0400 Systolic blood pressure 102 mm[Hg] Jenaro Lynch Work Phone: [facility] 250 DO Work Phone: 01-30-2023 10:23-0400 Blood Pressure Location Yeyo SILVESTRE [facility] 01-30-2023 10:23-0400 Diastolic blood pressure 74 mm[Hg] Yeyo SILVESTRE [facility] 01-30-2023 10:23-0400 Heart rate 68 /min Yeyo SILVESTRE [facility] 01-30-2023 10:23-0400 Respiratory rate 16 /min Yeyo SILVESTRE [facility] 01-30-2023 10:23-0400 Systolic blood pressure 130 mm[Hg] Yeyo SILVESTRE [facility] 01-11-2023 15:08-0400 Body height 180.34 cm Jenaro Lynch Work Phone: [facility] 600 DO Work Phone: 01-11-2023 15:08-0400 Body mass index (BMI) [Ratio] 30.13 kg/m2 Jenaro Lynch Work Phone: [facility] 600 DO Work Phone: 01-11-2023 15:08-0400 Body surface area Derived from formula 2.18 m2 Jenaro Lynch Work Phone: [facility] 600 DO Work Phone: 01-11-2023 15:08-0400 Body weight 97.98 kg Jenaro Lynch Work Phone: [facility] 600 DO Work Phone: 01-11-2023 15:08-0400 Diastolic blood pressure 86 mm[Hg] Jenaro Lynch Work Phone: [facility] 600 DO Work Phone: 01-11-2023 15:08-0400 Heart rate 74 /min Jenaro Lynch Work Phone: [facility] [employer] 600 DO Work Phone: 01-11-2023 15:08-0400 Systolic blood pressure 122 mm[Hg] Jenaro Lynch Work Phone: [facility] [employer] 600 DO Work Phone: 12-01-2022 12:45-0400 Body height 180.34 cm Jenaro Lynch Other [email or web address] Other 12-01-2022 12:45-0400 Body mass index (BMI) [Ratio] 29.73 kg/m2 Jenaro Lynch Other [email or web address] Other 12-01-2022 12:45-0400 Body weight 96.71 kg Jnearo Lynch Other [email or web address] Other 12-01-2022 12:45-0400 Diastolic blood pressure 70 mm[Hg] Jenaro Lynch Other [email or web address] Other 12-01-2022 12:45-0400 Respiratory rate 18 /min Jenaro Lynch Other [email or web address] Other 12-01-2022 12:45-0400 SaO2% (BldA) [Mass fraction] 94 % Jenaro Lynch Other [email or web address] Other 12-01-2022 12:45-0400 Systolic blood pressure 122 mm[Hg] Jenaro Lynch Other [email or web address] Other 11-23-2022 11:38-0400 Blood Pressure Location Yeyo SILVESTRE [facility] 11-23-2022 11:38-0400 Diastolic blood pressure 85 mm[Hg] Yeyo SILVESTRE [facility] 11-23-2022 11:38-0400 Heart rate 76 /min Yeyo SILVESTRE [facility] 11-23-2022 11:38-0400 Systolic blood pressure 130 mm[Hg] Yeyo SILVESTRE [facility] 07-04-2022 10:30-0500 Body height 180.34 cm Jenaro Lynch Other [employer] [facility] [employer] Other 07-04-2022 10:30-0500 Body mass index (BMI) [Ratio] 29.43 kg/m2 Jenaro Lynch Other [email or web address] Other 07-04-2022 10:30-0500 Body weight 95.71 kg Jenaro Lynch Other [email or web address] Other 07-04-2022 10:30-0500 Diastolic blood pressure 86 mm[Hg] Jenaro Lynch Other [email or web address] Other 07-04-2022 10:30-0500 Respiratory rate 16 /min Jenaro Lynch Other [email or web address] Other 07-04-2022 10:30-0500 Systolic blood pressure 146 mm[Hg] Jenaro Lynch Other [email or web address] Other 02-15-2022 13:45-0400 Body height 180.34 cm Jenaro Lynch Other [email or web address] Other 02-15-2022 13:45-0400 Body mass index (BMI) [Ratio] 30.12 kg/m2 Jenaro Lynch Other [email or web address] Other 02-15-2022 13:45-0400 Body weight 97.98 kg Jenaro Lynch Other [email or web address] Other 02-15-2022 13:45-0400 Diastolic blood pressure 62 mm[Hg] Jenaro Syed Other [email or web address] Other 02-15-2022 13:45-0400 Respiratory rate 16 /min Jenaro Lynch Other [email or web address] Other 02-15-2022 13:45-0400 SaO2% (BldA) [Mass fraction] 96 % Jenaro Lynch Other [email or web address] Other 02-15-2022 13:45-0400 Systolic blood pressure 100 mm[Hg] Jenaro Syed Other [email or web address] Other 10-26-2021 10:01-0400 Body height 180.34 cm Jenaro Guerra Syed Work Phone: [employer] 250 DO Work Phone: 10-26-2021 10:01-0400 Body mass index (BMI) [Ratio] 29.99 kg/m2 Jenaro Guerra Syed Work Phone: [employer] 250 DO Work Phone: 10-26-2021 10:01-0400 Body surface area Derived from formula 2.17 m2 Jenaro Fraustojoe Work Phone: [employer] 250 DO Work Phone: 10-26-2021 10:01-0400 Body weight 97.52 kg Jenaro Fraustojoe Work Phone: [facility] [employer] 250 DO Work Phone: 10-26-2021 10:01-0400 Diastolic blood pressure 70 mm[Hg] Jenarogorge Lynch Work Phone: [facility] [employer] 250 DO Work Phone: 10-26-2021 10:01-0400 Heart rate 68 /min Jenarogorge Lynch Work Phone: [facility] [employer] 250 DO Work Phone: 10-26-2021 10:01-0400 Systolic blood pressure 104 mm[Hg] Jenarogorge Lynch Work Phone: [facility] [employer] 250 DO Work Phone: 10-19-2021 12:20-0400 Body height 180.34 cm Amina [employer] Other [email or web address] Other 10-19-2021 12:20-0400 Body mass index (BMI) [Ratio] 30.65 kg/m2 [email or web address] Other [email or web address] Other 10-19-2021 12:20-0400 Body temperature 96.8 [degF] Amina 1[employer] Other [email or web address] Other 10-19-2021 12:20-0400 Body weight 99.7 kg [email or web address]ju[employer] Other [email or web address] Other 10-19-2021 12:20-0400 Diastolic blood pressure 71 mm[Hg] [email or web address]juan [employer] Other [email or web address] Other 10-19-2021 12:20-0400 Respiratory rate 18 /min [email or web address] Other [email or web address] Other 10-19-2021 12:20-0400 SaO2% (BldA) [Mass fraction] 98 % Amina Fagan Other [email or web address] Other 10-19-2021 12:20-0400 Systolic blood pressure 111 mm[Hg] Amina Fagan Other [email or web address] Other 07-27-2021 14:00-0500 Body height 180.34 cm Jenaro Lynch Other [email or web address] Other 07-27-2021 14:00-0500 Body mass index (BMI) [Ratio] 30.4 kg/m2 Jenaro Lynch Other [email or web address] Other 07-27-2021 14:00-0500 Body weight 98.88 kg Jenaro Lynch Other [email or web address] Other 07-27-2021 14:00-0500 Diastolic blood pressure 76 mm[Hg] Jenaro Lynch Other [email or web address] Other 07-27-2021 14:00-0500 Respiratory rate 18 /min Jenaro Lynch Other [email or web address] Other 07-27-2021 14:00-0500 SaO2% (BldA) [Mass fraction] 98 % Jenaro Lynch Other [email or web address] Other 07-27-2021 14:00-0500 Systolic blood pressure 112 mm[Hg] Jenaro Lynch Other [email or web address] Other Encounters Encounter Date Encounter Type Care Provider Facility Start: 09-08-2023 ambulatory Yeyo Ley ty:[facility] Start: 07-31-2023 ambulatory Shana Mclaughlin Facility:[facility] Start: 07-12-2023 End: 07-12-2023 Emergency department patient visit Jenaro Lynch Facility:[facility] Start: 07-12-2023 End: 07-12-2023 Emergency department patient visit DO Jenaro Lynch Work Phone: [facility] Work Phone: Start: 07-07-2023 End: 07-07-2023 ambulatory Jenaro Lynch Other [email or web address] Other Start: 07-07-2023 Telephone encounter Jenaro Syed [facility] Start: 07-03-2023 End: 07-04-2023 ambulatory Yeyo SILVESTRE Facility:[facility] Start: 06-26-2023 End: 06-26-2023 ambulatory Jenaro Lynch Other [email or web address] Other Start: 06-26-2023 Telephone encounter [facility] Start: 06-02-2023 End: 06-03-2023 ambulatory Yeyo SILVESTRE Facility:[facility] Start: 06-02-2023 End: 06-02-2023 Patient encounter procedure Yeyo SILVESTRE [facility] Start: 05-16-2023 End: 05-16-2023 ambulatory Jenaro Jettjoe Other [email or web address] Other Start: 05-16-2023 Telephone encounter Jenaro Lynch [facility] Start: 05-03-2023 End: 05-04-2023 ambulatory Yeyo SILVESTRE Facility:[facility] Start: 05-03-2023 End: 05-03-2023 Patient encounter procedure Yeyo SILVESTRE [facility] [place] Start: 04-28-2023 End: 04-28-2023 ambulatory Jenaro Fraustojoe Other [email or web address] Other Start: 04-28-2023 Telephone encounter Jenarogorge Lynch [facility] [place] Start: 04-18-2023 End: 04-19-2023 ambulatory Yeyo SILVESTRE Facility:[facility] Start: 04-18-2023 End: 04-18-2023 Patient encounter procedure Yeyo SILVESTRE [facility] [place] Start: 04-17-2023 ambulatory Yeyo Ruizi ty:[facility] [place] Start: 04-13-2023 End: 04-14-2023 ambulatory Yeyo SILVESTRE Facility:[id number] Start: 04-11-2023 End: 04-11-2023 ambulatory Jenaro Fraustojoe Other [email or web address] Other Start: 04-11-2023 Telephone encounter Jenarogorge Lynch [facility] [place] Start: 04-06-2023 End: 04-06-2023 ambulatory Jenaro Jettjoe Other [email or web address] Other Start: 04-06-2023 Encounter for other preprocedural examination Jenaro Lynch [facility] [place] Start: 04-06-2023 Office outpatient vi sit 25 minutes Jenaro Lynch [facility] [place] Start: 03-28-2023 End: 03-28-2023 ambulatory Jenarogorge Lynch Other [email or web address] Other Start: 03-28-2023 Telephone encounter Jenarogorge Lynch [facility] [place] Start: 03-20-2023 ambulatory Yeyo SILVESTRE Facili ty:[facility] [place] Start: 03-16-2023 ambulatory Yeyo SILVESTRE Facili ty:[id number] Start: 03-15-2023 End: 03-15-2023 ambulatory Jenaro Lynch Other [employer] Other Start: 03-15-2023 Office outpatient vi sit 25 minutes Jenaro Lynch [facility] Start: 03-10-2023 End: 03-10-2023 ambulatory Jenaro Lynch Other [facility] Other Start: 03-10-2023 Telephone encounter Jenaro Lynch [facility] Start: 02-15-2023 Office outpatient vi sit 15 minutes Jenaro Lynch Work Phone: [facility] 250 DO Work Phone: Start: 02-15-2023 ambulatory Dolores Feldman Facility:[id number] Start: 02-14-2023 End: 02-15-2023 ambulatory Yeyo SILVESTRE Facility:[facility] Start: 02-14-2023 End: 02-14-2023 Patient encounter procedure Yeyo SILVESTRE [facility] Start: 02-08-2023 End: 02-09-2023 ambulatory Yeyo SILVESTRE Facility:[facility] Start: 02-08-2023 End: 02-08-2023 Patient encounter procedure Yeyo SILVESTRE [facility] Start: 01-30-2023 End: 01-31-2023 ambulatory Yeyo SILVESTRE Facility:[facility] Start: 01-30-2023 End: 01-30-2023 Patient encounter procedure Yeyo SILVESTRE [facility] Start: 01-25-[address] Jenaro Lynch Facility:[id number] Start: 01-17-2023 End: 01-17-2023 ambulatory Jenaro Lynch Other [facility] Other Start: 01-17-2023 Telephone encounter Jenaro Lynch [facility] [place] Start: 01-11-2023 Office outpatient vi sit 25 minutes Jenaro Lynch Work Phone: [facility] 600 DO Work Phone: Start: 01-11-2023 ambulatory Dolores Feldman Facility:1 [id number] Start: 12-28-2022 End: 12-29-2022 ambulatory Yeyoneel SILVESTRE Facility:[facility] [place] Start: 12-28-2022 End: 12-28-2022 Patient encounter procedure Yeyo R SILVESTRE [facility] [place] Start: 12-21-2022 ambulatory Yeyo R SOLEDAD Facili ty:[facility] Start: 12-01-2022 End: 12-01-2022 ambulatory Jenaro Lynch Other [facility] Other Start: 12-01-2022 Office outpatient vi sit 25 minutes Jenaro Lynch [facility] Start: 11-30-2022 ambulatory Yeyo SOLEDAD Facility :[facility] [place] Start: 11-23-2022 End: 11-24-2022 ambulatory Yeyo R SOLEDAD Facility:[facility] [place] Start: 11-23-2022 End: 11-23-2022 Patient encounter procedure Yeyo R SOLEDAD [facility] [place] Start: 10-07-2022 End: 10-07-2022 ambulatory Jenaro Lynch Other [email or web address] Other Start: 10-07-2022 Telephone encounter Jenaro Lynch [facility] [place] Start: 09-27-2022 End: 09-27-2022 ambulatory Jenaro Lynch - [facility] Facility:[facility] Start: 09-27-2022 End: 09-27-2022 ambulatory DO Jenaro Lynch Work Phone: [facility] Work Phone: Start: 09-27-2022 End: 09-27-2022 Patient encounter procedure DO Jenaro Lynch Work Phone: [facility] [place] Work Phone: Start: 09-21-2022 End: 09-21-2022 ambulatory Jenaro Lynch Other [email or web address] Other Start: 09-21-2022 Telephone encounter Jenaro Lynch [facility] [place] Start: 09-14-2022 End: 09-14-2022 ambulatory Jenaro Lynch Other [email or web address] Other Start: 09-14-2022 Telephone encounter Jenaro Lynch [facility] [place] Start: 09-02-2022 End: 09-02-2022 ambulatory Shana Mclaughlin Facility:[facility] Start: 09-02-2022 End: 09-02-2022 Patient encounter procedure DO Jenaro Lynch Work Phone: [facility] [place] Work Phone: Start: 08-25-2022 End: 08-25-2022 ambulatory Doris Montserrat Other [email or web address] Other Start: 08-25-2022 Telephone encounter Doris Barnes [facility] Start: 08-22-2022 End: 08-22-2022 ambulatory Jenaro Lynch Other [email or web address] Other Start: 08-22-2022 Telephone encounter Jenaro Lynch [facility] [place] Start: 08-05-2022 End: 08-05-2022 ambulatory Jenaro Lynch Other [email or web address] Other Start: 08-05-2022 Telephone encounter Jenaro Lynch [facility] [place] Start: 08-04-2022 End: 08-04-2022 ambulatory Jenaro Lynch Other [email or web address] Other Start: 08-04-2022 Telephone encounter Jenaro Lynch [facility] [place] Start: 07-28-2022 End: 07-28-2022 ambulatory Jenaro Fraustojoe Other [email or web address] Other Start: 07-28-2022 Telephone encounter Jenaro Lynch [facility] Start: 07-25-2022 End: 07-25-2022 ambulatory Jenaro Lynch Other [email or web address] Other Start: 07-25-2022 Nursing evaluation o f patient and report Jenaro Lynch [facility] [place] Start: 07-19-2022 End: 07-19-2022 ambulatory Jenaro Lynch Other [email or web address] Other Start: 07-19-2022 Telephone encounter Jenaro Lynch [facility] [place] Start: 07-15-2022 End: 07-15-2022 ambulatory Jenaro Lynch Other [email or web address] Other Start: 07-15-2022 Telephone encounter Jenaro Lynch [facility] [place] Start: 07-13-2022 End: 07-13-2022 ambulatory Jenaro Lynch Other [email or web address] Other Start: 07-13-2022 Nursing evaluation o f patient and report Jenaro Lynch [facility] [place] Start: 07-12-[address] Raulito Kennedy II Facility: Start: 07-05-2022 End: 07-05-2022 ambulatory Jenaro Lynch Other [email or web address] Other Start: 07-05-2022 Telephone encounter Jenaro Lynch [facility] [place] Start: 07-05-2022 Rx Renewal Jenaro Lynch Work Phone: [facility] 250 DO Work Phone: Start: 07-04-2022 End: 07-04-2022 ambulatory Jenaro Lynch Other [employer] Other Start: 07-04-2022 Office outpatient vi sit 25 minutes Jenaro Lynch [facility] [place] Start: 06-30-2022 End: 06-30-2022 ambulatory Jenaro Lynch Other [employer] Other Start: 06-30-2022 Telephone encounter Jenaro Lynch [facility] [place] Start: 05-25-2022 End: 05-25-2022 ambulatory Jenaro Lynch Other [employer] Other Start: 05-25-2022 Telephone encounter Jenaro Lynch [facility] [place] Start: 04-25-2022 End: 04-25-2022 ambulatory Jenaro Lynch Other [email or web address] Other Start: 04-25-2022 Telephone encounter Jenaro Lynch [facility] [place] Start: 04-19-2022 End: 04-19-2022 ambulatory Jenaro Lynch Other [email or web address] Other Start: 04-19-2022 Telephone encounter Jenaro Lynch [facility] [place] Start: 03-22-2022 End: 03-22-2022 ambulatory Jenaro Lynch Other [email or web address] Other Start: 03-22-2022 Telephone encounter Jenaro Lynch [facility] [place] Start: 03-01-2022 End: 03-01-2022 ambulatory Jenaro Lynch Other [email or web address] Other Start: 03-01-2022 Telephone encounter Jenaro Lynch [facility] [place] Start: 02-18-2022 End: 02-18-2022 ambulatory Jenaro Lynch Other [email or web address] Other Start: 02-18-2022 Telephone encounter Jenaro Lynch [facility] [place] Start: 02-15-2022 End: 02-15-2022 ambulatory Verona Whaley Other [email or web address] Other Start: 02-15-2022 Office outpatient vi sit 25 minutes Jenaro Lynch [facility] [place] Start: 02-15-2022 Telephone encounter Verona Whaley [facility] Start: 01-21-2022 End: 01-21-2022 ambulatory Jenaro Lynch Other [email or web address] Other Start: 01-21-2022 Telephone encounter Jenaro Lynch [facility] [place] Start: 01-19-2022 End: 01-19-2022 ambulatory Jenaro Lynch Other [email or web address] Other Start: 01-19-2022 Telephone encounter Jenaro Lynch [facility] [place] Start: 01-13-2022 End: 01-13-2022 ambulatory Jenaro Lynch Other [email or web address] Other Start: 01-13-2022 Telephone encounter Jenaro Lynch [facility] [place] Start: 12-23-2021 End: 12-23-2021 ambulatory Jenaro Lynch Other [email or web address] Other Start: 12-23-2021 Telephone encounter Jenaro Lynch [facility] [place] Start: 11-24-2021 End: 11-24-2021 ambulatory Jenaro Lycnh Other [email or web address] Other Start: 11-24-2021 Telephone encounter Jenaro Lynch [facility] [place] Start: 11-03-2021 Rx Renewal Jenaro Lynch Work Phone: [facility] 250 DO Work Phone: Start: 10-26-2021 Office outpatient vi sit 25 minutes Jenaro Lynch Work Phone: [facility] 250 DO Work Phone: Start: 10-25-2021 End: 10-25-2021 ambulatory Jenaro Lynch Other [email or web address] Other Start: 10-25-2021 Telephone encounter Jenaro Lynch [facility] [place] Start: 10-19-2021 End: 10-19-2021 ambulatory Azjuan Chavodariuss Other [email or web address] Other Start: 10-19-2021 Office outpatient vi sit 25 minutes Aziz Bakhous [facility] Start: 10-18-2021 End: 10-18-2021 ambulatory Aziz Bakhous Other [email or web address] Other Start: 10-18-2021 Telephone encounter Aziz Bakhous [facility] Start: 10-12-2021 End: 10-13-2021 ambulatory DUARTE HENRY . Facility: Start: 10-08-2021 End: 10-08-2021 ambulatory Jenaro Lynch Other [email or web address] Other Start: 10-08-2021 Telephone encounter Jenaro Lynch [facility] [place] Start: 09-22-2021 End: 09-22-2021 ambulatory Jenaro Lynch Other [email or web address] Other Start: 09-22-2021 Telephone encounter Jenaro Lynch [facility] [place] Start: 09-21-2021 End: 09-21-2021 ambulatory Jenaro Lynch Other [email or web address] Other Start: 09-21-2021 Telephone encounter Jenaro Lynch [facility] [place] Start: 08-09-2021 End: 08-09-2021 ambulatory Jenaro Lynch Other [email or web address] Other Start: 08-09-2021 Telephone encounter Jenaro Lynch [facility] [place] Start: 08-02-2021 End: 08-02-2021 ambulatory Jenaro Lynch Other [email or web address] Other Start: 08-02-2021 Telephone encounter Jenaro Lynch [facility] [place] Start: 07-27-2021 End: 07-27-2021 ambulatory Jenaro Lynch Other [email or web address] Other Start: 07-27-2021 Office outpatient vi sit 25 minutes Jenaro Lynch [facility] [place] Start: 06-23-2021 End: 06-23-2021 ambulatory Jenaro Lynch Other [email or web address] Other Start: 06-23-2021 Telephone encounter Jenaro Lynch [facility] Start: 06-22-2021 Rx Renewal Jenaro Lynch Work Phone: [place] [address] DO Work Phone: Start: 05-03-2021 End: 05-03-2021 ambulatory Jenaro Lynch Other [email or web address] Other Start: 05-03-2021 Telephone encounter Jenaro Lynch [facility] [place] Procedures Date Procedure Procedure Detail Performing Clinician Start: 07-12-2023 Plain chest X-ray DO Livia Lynch Work Phone: Start: 09-02-2022 MRI of head DO Jenaro shi Work Phone: Start: 06-05-2006 Total colonoscopy Jenaro Lynch Work Phone: Appendectomy Jenaro Lynch Work Phone: Appendectomy Yeyo SILVESTRE Bilateral Carpal Timothy uli Surgery Yeyo SILVESTRE Bilateral Eye Surgery 1 Stephanier genaro SILVESTRE Comment on above: bilateral cataracts with iol implants Cardiac catheterization Jose Angel Guerra Syed Work Phone: cardiac stents Yeyo Obrien Cataract extraction and insertion of intraocular lens Yeyo SILVESTRE Cataract surgery Jenarogorge Frausto joe Work Phone: Colonoscopy Yeyo SILVESTRE Decompression of med byron nerve Jenarogorge Lynch Work Phone: History of percutane ous [...] 2:40 PM FUV, Provider: Raulito Kennedy, Status: Umer, Time: 2:40 PM [facility] 250 DO Work Phone: Start: 07-12-2023 Duplex scan of lower limb veins US venous duplex LE BI [facility] Start: 07-12-2023 US Lower extremity v ein - bilateral [facility] Start: 07-12-2023 Duplex scan veins of upper limb US venous duplex UE LT [facility] Start: 07-12-2023 US Upper extremity v ein - left [facility] Start: 02-15-2023 FUV, Provider: Dolores Velazquez, Status: Pen, Time: 10:00 AM FUV, Provider: Dolores Velazquez, Status: Pen, Time: 10:00 AM -[facility] 600 DO Work Phone: Start: 01-25-2023 STRESS NUC, Provider : CHARISSE HHVI NUCLEAR 01,[id number], Status: Pen, Time: 8:30 AM STRESS NUC, Provider: CHARISSE HHVI NUCLEAR 01,[id number], Status: Pen, Time: 8:30 AM -[facility] 600 DO Work Phone: Start: 07-12-2022 FUV, Provider: Raulito Kennedy, Status: Pen, Time: 9:20 AM FUV, Provider: Raulito Kennedy, Status: Pen, Time: 9:20 AM -[facility] 250 DO Work Phone: Start: 10-26-2021 FUV, Provider: Raulito Kennedy, Status: Pen, Time: 9:30 AM FUV, Provider: Raulito Kennedy, Status: Pen, Time: 9:30 AM -[facility] 250 DO Work Phone: Patient Education Dependent Edema (DC) [facility] Work Phone: Patient referral [facility] Work Phone: Immunizations Immunization Date Immunization Notes Care Provider Sachin pettit 11-13-2020 Pfizer-BioNTech COVID-19 Vacc 30 MCG/0.3ML Intramuscular Suspension Jenaro Lynch Work Phone: [facility] 10-23-2020 Pfizer-BioNTech COVID-19 Vacc 30 MCG/0.3ML Intramuscular Suspension Jenaro Lynch Work Phone: [facility] 01-14-2019 influenza, seasonal, injectable Jenaro Lynch Other [email or web address] Other 01-14-2019 influenza virus vaccine, unspecified formulation Yeyo SILVESTRE [facility] 04-02-2018 influenza virus vaccine, unspecified formulation Yeyo SILVESTRE [facility] 04-02-2018 influenza, injectabl e, quadrivalent, preservative free DO Jenaro Lynch Work Phone: [facility] 03-05-2018 influenza virus vaccine, unspecified formulation Jenaro Lynch Work Phone: [facility] 250 DO Work Phone: 03-05-2018 pneumococcal polysaccharide vaccine, 23 valent Jenaro P Syed Work Phone: [facility] 250 DO Work Phone: 03-07-2016 influenza virus vaccine, unspecified formulation Yeyo SILVESTRE [facility] 03-07-2016 influenza, injectabl e, quadrivalent, preservative free Jenaro Lynch Work Phone: [facility] 600 DO Work Phone: 02-22-2016 pneumococcal polysaccharide vaccine, 23 valent Jenaro P Kuns Work Phone: [facility] Payers Date Payer Category Payer Self-pay [id number] 2022 Medicaid [id number] 1965 Unknown [id number] 2.16.84 0.1.242403.3.579.2.593 1965 Unknown [id number] 2.16.8 40.1.953436.3.579.2.1068 1965 Unknown [id number] 2.16. 840.1.079435.3.579.2.356 1965 Unknown [id number] 2.16. 840.1.807912.3.579.2.356 1965 Unknown [id number] 2.16. 840.1.361288.3.579.2.356 1965 Unknown [id number] 2.16.8 40.1.660858.3.579.2. 1965 Unknown [id number] 2.16.8 40.1.974066.3.579.2. 1965 Unknown [id number] 2.16.8 40.1.845562.3.579.2. 1965 Unknown [id number] 2.16.8 40.1.217620.3.579.2 1965 Unknown [id number] 2.16.8 40.1.729006.3.579.2. 1965 Unknown [id number] 2.16.8 40.1.793401.3.579.2. 1965 Unknown [id number] 2.16.8 40.1.337589.3.579.2. 1965 Unknown [id number] 2.16.8 40.1.621319.3.579.2.72 1965 Unknown [id number] 2.16.8 40.1.151937.3.579.2. 1965 Unknown [id number] 2.16.8 40.1.051753.3.579.2.72 1965 Unknown [id number] 2.16.8 40.1.426012.3.579.2. 1965 Unknown [id number] 2.16.8 40.1.064047.3.579.2. 1965 Unknown [id number] 2.16.8 40.1.509163.3.579.2 1965 Unknown [id number] 2.16.8 40.1.325736.3.579.2.727 1965 Unknown [id number] 2.16.8 40.1.570521.3.579.2.727 1959 Unknown [id number] 2.1 6.840.1.498751.19 Unknown [employer] Unknown [id number] 2.16.8 40.1.959384.3.579.2.531 Unknown [id number] 2.16.8 40.1.790358.3.579.2.531 Unknown [id number] 2.16.8 40.1.343165.3.579.2.531 Unknown [id number] 2.16.8 40.1.745042.3.579.2.531 Social History Date Type Detail Facility Caffeine use Caffeine use Ku[facility] Other Comment on above: 2 cups coffee, 4-6 c ups tea daily, occaional soda; qauit 07/2020; Sex Assigned At [facility] Start: 07-14-2020 End: 07-12-2023 Tobacco smoking status NHIS Smoker (finding) [facility] Start: 1965 Sex Assigned At Male F [facility] Start: 11-23-2022 End: 06-02-2023 Tobacco smoking status Heavy tobacco smoker (finding) [facility] Tobacco smoking status Never [facility] Medical Equipment Procedure Code Equipment Code Equipment Origin al Text Equipment Identifier Dates Aortogram, abdominal, with bilateral lower extremity runoff IR STENT SMART 10 X 80 120 CM FDA Start: 09-27-2018 Aortogram, abdominal, with bilateral lower extremity runoff IR STENT SMART 10 X 80 120 CM FDA Start: 09-27-2018 Start: 12-16-2013 Bare-metal bilia ry stentMultiple peripheral artery stent, bare-metal ([id number] FDA Start: 07-14-2020 Functional Status Date Assessment Result Facility 06-02-2023 Functional Status N/A [facility] 02-14-2023 Functional Status N/A [facility] 01-30-2023 Functional Status N/A [facility] 11-23-2022 Functional Status N/A [facility] [place] Clinical Notes 06-23-2021 to 06-26-2023 Note Date & Type Note Facility 06-26-2023 Evaluation note Encounter Date Diagnosis Assessment Notes Jun, Hyperlipidemia (ICD-10 - E78.5) [email or web address] Other [id number] Hospital Discharge instructions Patient Education 06/02/2023 11:57:43 [...] urethra. Follow these instructions at home: Take [id number]-[id number] and prescription medicines only as told by [...] provider. Document Revised: 12/08/2021 Document Reviewed: 12/08/2021 Elsevier Patient Education 2022 [employer] Follow Up Care 06/01/2023 14:05:36 With:SOLEDAD HERRERA, Yeyo Blum, URL Address: [address] [place] [address]- When: Unknown [facility] 12-12-2023 Evaluation note* Encounter Date Diagnosis Assessment Notes Treatment Notes Treatment Clinical Notes May, 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) [email or web address] Other 11-24-2023 Evaluation note* Encounter Date Diagnosis Assessment Notes Treatment Notes Treatment Clinical Notes Apr, Diabetic nephropathy (ICD-10 - E11.21) [email or web address] Other 11-07-2023 Evaluation note* Encounter Date Diagnosis Assessment Notes Treatment Notes Treatment Clinical Notes Apr, Left arm pain (ICD-10 - M79.602) [email or web address] Other 11-02-2023 Evaluation note* Encounter Date Diagnosis [...] and to have his surgery as scheduled. 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 He was found to have developed the [...] to continue to montior this at home. [email or web address] Other 10-09-2023 Note [id number] 02-14-2023 [id number]:127[facility]09-12-2023 Note [id number]:127[facility] 02-14-2023 Hospital Discharge instructions Patient Education [...] including vitamins, herbs, eye drops, creams, and dmvi-dhg-cfoofze medicines. Any problems you or family members [...] provider tells you to take them. Taking mdmh-fxf-vbmppxf medicines, vitamins, herbs, and supplements. Surgery safety [...] provider. Document Revised: 02/15/2022 Document Reviewed: 02/15/2022 [employer] Patient Education 2022 PENRITH. [facility]08-28-2023 Hospital Discharge instructions Patient Education 01/30/2023 11:22:32 [...] including vitamins, herbs, eye drops, creams, and bclt-dlq-ljumghr medicines. ?Whether you are or may be [...] provider. Document Revised: 02/02/2022 Document Reviewed: 12/25/2020 [employer] Patient Education 2022 PENRITH. 01/30/2023 11:22:30 Cystoscopy Cystoscopy Cystoscopy is a [...] including vitamins, herbs, eye drops, creams, and utxh-nmx-ihvrbwt medicines. Any problems you or family members [...] provider tells you to take them. Taking ykxc-zjl-urfvmwj medicines, vitamins, herbs, and supplements. Tests You [...] Follow these instructions at home: Medicines Take nofi-epf-xlcarno and prescription medicines only as told by [...] provider. Document Revised: 02/02/2022 Document Reviewed: 01/01/2021 [employer] Patient Education 2022 PENRITH. Follow Up Care 11/23/2022 13:02:56 With:SOLEDAD HERRERA, Yeyo Blum, URL Address: [facility] [address] , [place] [address]- [phone] When: Unknown Comments:sched cysto/uros [facility] Aure[place] 08-15-2023 Evaluation note* Encounter Date Diagnosis Assessment Notes Treatment Notes Treatment Clinical Notes Jan, Diabetic nephropathy (ICD-10 - E11.21) [email or web address] Other 06-29-2023 Evaluation note* Encounter Date Diagnosis [...] reviewed. 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 [email or web address] Other 06-21-2023 Hospital Discharge instructions Patient Education [...] provider. Document Revised: 08/11/2021 Document Reviewed: 05/07/2021 [employer] Patient Education 2021 PENRITH. Follow Up Care 09/14/2022 14:23:26 With:SOLEDAD HERRERA, Yeyo Blum, URL Address: [facility] [address] , [place] [address]- When: Unknown [facility] Char[place] 05-05-2023 Evaluation note* Encounter Date Diagnosis Assessment Notes Treatment Notes Treatment Clinical Notes October, Erectile dysfunction, unspecified erectile dysfunction type (ICD-10 - N52.9) [email or web address] Other 04-19-2023 Evaluation note* Encounter Date Diagnosis Assessment Notes Treatment Notes Treatment Clinical Notes Sep, 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) [email or web address] Other 04-12-2023 Evaluation note* Encounter Date Diagnosis Assessment Notes Treatment Notes Treatment Clinical Notes Sep, 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) Sep, 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) [email or web address] Other 03-20-2023 Evaluation note* Encounter Date Diagnosis Assessment Notes Treatment Notes Treatment Clinical Notes Aug, Diabetic nephropathy (ICD-10 - E11.21) [email or web address] Other 03-03-2023 Evaluation note* Encounter Date Diagnosis Assessment Notes Treatment Notes Treatment Clinical Notes Aug, Pain in right leg (ICD-10 - M79.604) [email or web address] Other 03-02-2023 Evaluation note* Encounter Date Diagnosis Assessment Notes Treatment Notes Treatment Clinical Notes Aug, Pain in right leg (ICD-10 - M79.604) [email or web address] Other 02-20-2023 Evaluation note* Encounter Date Diagnosis Assessment Notes Treatment Notes Treatment Clinical Notes Jul, Intractable episodic headache, unspecified headache type (ICD-10 - R51.9) [email or web address] Other 02-14-2023 Evaluation note* Encounter Date Diagnosis Assessment Notes Treatment Notes Treatment Clinical Notes Jul, Acute intractable headache, unspecified headache type (ICD-10 - R51.9) [email or web address] Other 02-08-2023 Evaluation note* Encounter Date Diagnosis Assessment Notes Treatment Notes Treatment Clinical Notes Jul, Headache (ICD-10 - R51.9) [email or web address] Other 01-30-2023 Evaluation note* Encounter Date Diagnosis [...] medication and we will continue to monitor. [email or web address] Other 12-21-2022 Evaluation note* Encounter Date Diagnosis Assessment Notes Treatment Notes Treatment Clinical Notes May, Diabetic nephropathy (ICD-10 - E11.21) [email or web address] Other 11-21-2022 Evaluation note* Encounter Date Diagnosis Assessment Notes Treatment Notes Treatment Clinical Notes Apr, Diabetic nephropathy (ICD-10 - E11.21) [email or web address] Other 11-15-2022 Evaluation note* Encounter Date Diagnosis Assessment Notes Treatment Notes Treatment Clinical Notes Apr, Pain in right leg (ICD-10 - M79.604) [email or web address] Other 10-18-2022 Evaluation note* Encounter Date Diagnosis Assessment Notes Treatment Notes Treatment Clinical Notes Mar, Diabetic nephropathy (ICD-10 - E11.21) [email or web address] Other 09-13-2022 Evaluation note* Encounter Date Diagnosis Assessment Notes Treatment Notes Treatment Clinical Notes Feb, Hypertensive chronic kidney disease with stage 1 through stage 4 chronic kidney disease, or unspecified chronic kidney disease (ICD-10 - I12.9) [email or web address] Other 09-13-2022 Evaluation note* Encounter Date Diagnosis [...] scheduled. 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 Feb, Pain in right leg (ICD-10 - M79.604) Refill provided of the above. Feb, 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) Fasting glucose reading of 185, and in house A1C was greater than 14.0. Therefore we will refer to Doris Barnes. Feb, Neoplasm of uncertai n behavior [...] Noted upon review of blood work results. [email or web address] Other 08-19-2022 Evaluation note* Encounter Date Diagnosis Assessment Notes Treatment Notes Treatment Clinical Notes Jan, Diabetic nephropathy (ICD-10 - E11.21) [email or web address] Other 08-17-2022 Evaluation note* Encounter Date Diagnosis Assessment Notes Treatment Notes Treatment Clinical Notes Jan, Diabetic nephropathy (ICD-10 - E11.21) [email or web address] Other 07-21-2022 Evaluation note* Encounter Date Diagnosis Assessment Notes Treatment Notes Treatment Clinical Notes Dec, Diabetic nephropathy (ICD-10 - E11.21) [email or web address] Other 06-22-2022 Evaluation note* Encounter Date Diagnosis Assessment Notes Treatment Notes Treatment Clinical Notes Nov, Diabetic nephropathy (ICD-10 - E11.21) [email or web address] Other 05-23-2022 Evaluation note* Encounter Date Diagnosis Assessment Notes Treatment Notes Treatment Clinical Notes October, Diabetic nephropathy (ICD-10 - E11.21) [email or web address] Other 05-17-2022 Evaluation note* Encounter Date Diagnosis [...] E11.59) October, 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 Kennedy. For this October, Other He did quit smoking since July 2020 [email or web address] Other 05-16-2022 Evaluation note* Encounter Date Diagnosis Assessment Notes Treatment Notes Treatment Clinical Notes October, Hypertensive chronic kidney disease with stage 1 through stage 4 chronic kidney disease, or unspecified chronic kidney disease (ICD-10 - I12.9) October, Stage 3 chronic kidney disease, unspecified whether stage 3a or 3b CKD (ICD-10 - N18.30) [email or web address] Other 05-06-2022 Evaluation note* Encounter Date Diagnosis Assessment Notes Treatment Notes Treatment Clinical Notes October, Pain in right leg (ICD-10 - M79.604) October, Pain in left leg (ICD-10 - M79.605) [email or web address] Other 04-20-2022 Evaluation note* Encounter Date Diagnosis Assessment Notes Treatment Notes Treatment Clinical Notes Sep, Diabetic nephropathy (ICD-10 - E11.21) [email or web address] Other 04-19-2022 Evaluation note* Encounter Date Diagnosis Assessment Notes Treatment Notes Treatment Clinical Notes Sep, Anxiety (ICD-10 - F41.9) Sep, Hypertensive chronic kidney disease with stage 1 through stage 4 chronic kidney disease, or unspecified chronic kidney disease (ICD-10 - I12.9) [email or web address] Other 03-07-2022 Evaluation note* Encounter Date Diagnosis Assessment Notes Treatment Notes Treatment Clinical Notes Aug, Anxiety (ICD-10 - F41.9) [email or web address] Other 02-22-2022 Evaluation note* Encounter Date Diagnosis [...] 12 pound weight loss from last visit. [email or web address] Other [id number] Evaluation note* Encounter Date Diagnosis Assessment Notes Treatment Notes Treatment Clinical Notes Jun, Diabetic nephropathy (ICD-10 - E11.21) [email or web address] Other Evaluation + Plan note Future Appointments Appointment Date:12/21/2022 11:00:00 AM Scheduled Provider: Location:[facility] [place] Appointment Type:URO Nurse Visit Appointment Date:01/30/2023 10:30:00 AM Scheduled Provider:Yeyo SILVESTRE MD Location:[facility] [place] Appointment Type:URO Office Visit [facility] [place] Evaluation + Plan note Future Appointments Appointment Date:01/30/2023 10:15:00 AM Scheduled Provider:Yeyo SILVESTRE MD Location:[facility] Appointment Type:URO Office Visit [facility] Evaluation + Plan note Future Appointments Appointment Date:02/01/2023 10:00:00 AM Scheduled Provider: Location:[facility] Appointment Type:Urology CALL PAT FT Appointment Date:02/08/2023 09:00:00 AM Scheduled Provider: Location:[facility] Appointment Type:Urology FT Appointment Date:02/14/2023 09:15:00 AM Scheduled Provider: Location:[facility] Appointment Type:Urology FT [facility] evaluation + Plan note Future Appointments Appointment Date:02/14/2023 09:15:00 AM Scheduled Provider: Location:[facility] Appointment Date:03/20/2023 08:45:00 AM Scheduled Provider: Location:[facility] Appointment Type:URO Nurse Visit Appointment Date:04/05/2023 08:00:00 AM Scheduled Provider:Yeyo SILVESTRE MD Location:[facility] App[facility]ments Appointment Date:05/03/2023 08:45:00 AM Scheduled Provider:Yeyo SILVESTRE MD Location:[facility] Appointment Type:URO Office Visit [facility] Evaluation + Plan note Future Appointments Appointment Date:07/03/2023 10:15:00 AM Scheduled Provider:[facility] evaluation noteNo InformationNort [employer] Other evaluation noteNo assessment information available [facility] Work Phone: History general Narrative - Reported* [...] hydrocele repair 08/2016 Surgical History cardiac cath [facility] 04/02/18 Surgical History Lt LE iliac DSA, angioplasty & stenting 09/27/2018 Surgical History Left Angiogram with one stent - Dr. Boss 07/2020 Hospitalization History Deep Depression, Anxiety; [facility] 11-11-10 Hospitalization History [facility] hypoxemia and hyper capnic respirtory failure 11/11/16 Hospitalization History chest pain [facility] 04/02/18 [facility] [employer] Other History of Present illness NarrativeReturns in [...] impact on blood pressure and diabetes were reviewed-[facility] 250 DO Work Phone: History of Present [...] medication regimen. He denies medication side effects. [facility] 600 DO Work Phone: History of Present [...] medication regimen. [facility] effects[facility] Work [facility] Hospital course Narrative No data available for this section [facility] [employer] Hospital Discharge instructions No data available for this section [facility] [employer] Progress note No data available for this section [facility] [employer] Chief Complaint SOLOMON FELDMAN is being seen [...] adache, unspecified headache type (R51.9) Referral Organization [facility] Referring Provider First Name Jenaro Referring Provider Last Name Syed Referring Provider Specialty Family Prac dale Referred Organization [facility] Referred Provider Lyssa Sharpe Referred Address [address] [place],[address] Referred Provider Specialty Neurology Referral Priority Routine General Notes [facility] 023 10:19:08 AM >Received today. [facility] request us to fill out their form and attach to Referral and send it to them and they will call patient to schedule. 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) Referral Organization [facility] Referring Provider First Name Jenaro Referring Provider Last Name Syed Referring Provider Specialty [facility] dale Referred Organization [facility] Referred Provider Doris Barnes Referred Address [address],[place], [place],[address] Referred Provider Specialty Nurse Jono calderon Referral Priority Routine Referral Appointment Date 2022-03-31 General Notes [facility] 022 02:28:10 PM >Received today and sent P2P [facility] 02/16/2022 07:50:21 AM >Patient has been scheduled [...] this at the same time, * Needs C4TnvdtolWroqulxpMHV to sendRefills-bpk to send rxrefil - bpk to send rxLAB ORDERSRENAL 6 month Follow uprefillrefillclinicalRefills-bpk to send rxlyrica rx printedDM ReferralClinicaldiscuss PSA resultsclinicalClinicalRefills-bpk to send rxrefillrefill- BPK to send rxRefills-bpk to send rxClinicalheadachesClinicaltoradol shottoradol shotclinicaltoradol per bpkNeurology Referral UpdateRefills-bpk to send rxrefillRefillDM Referral UpdaterefillRefillsRefillsTKM CancelledMED CHECKbpk to send pbprjaxfpgk3c check/hospital f/u-bellevueRefillsR/S surgical clearanceclinicalrefillrefillrefillClinical Care Teams (unrecognized sec tion and content) Team Status: Active Member Role Status Dates Jenaro Lynch DO Primary Care Provider Active Team Status: Inactive Member Role Status Dates Jenaro Lynch DO Primary Care Provider Active Shana Mclaughlin PA-C Attending Provider Active Team Status: Inactive Member Role Status Dates Jenaro Lynch DO Primary Care Provider Active Jenaro Lynch DO [facility] Attending Provider Active Team Status: Inactive [...] and content) DATE CREATED AUTHOR 11/11/2022 [facility] DATE CREATED AUTHOR AUTHOR'S ORGANIZ ATION [facility]2023 [facility] DATE CREATED AUTHOR AUTHOR'S ORGANIZ ATION 02/16/2023 [facility] DATE CREATED AUTHOR AUTHOR'S ORGANIZ ATION 02/16/2023 [employer] DATE CREATED AUTHOR AUTHOR'S ORGANIZ ATION 07/14/2023 [facility] [facility] DATE CREATED AUTHOR AUTHOR'S ORGANIZ ATION 08/08/2023 [facility] FOR RECORDS PERTAINING TO PATIENTS WHO [...] BE BASED ON THE PRIMARY CLINICAL RECORDS. [employer] provides no warranty or guarantee of the accuracy or completeness of information in this document.
== END 2023-08-22 09:26 | disposition home or self-care (01) ==
LOC: WC 09:26
PROVIDERS: PCP Family Medicine; Visit Provider Physician Assistant
DX: E11.621 Type 2 diabetes mellitus with foot ulcer (principal); L97.415 Non-pressure chronic ulcer of right heel and midfoot with muscle involvement without evidence of necrosis
CPT/HCPCS: 11042

== ENCOUNTER 2023-08-25 11:47 | Outpatient (OUT) | payer OTHER, SELFPAY ==
--- OUTSIDE RECORDS SUMMARY | 2023-08-25 11:52 | XMS_ITS | CCD ---
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 Jenaro Orona Primary Care UnavailDolores [...] Care Provider MD Nancy Chaudhari Emergency Provider [phone] Yeyo SILVESTRE Attending Unavailable SILVESTRE, Yeyo R [...] skin (disorder) [facility] (17 sources) Penicillins; 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: [Penicillins] Allergy to drug (finding) 07-14-19 21 Anaphylactoid reaction (disorder) [facility] (20 sources) Acetaminophen / oxyCODONE Drug Allergy vomiting [facility] Other (20 sources) tamsulosin Drug Allergy 07-14-19 21 hives [facility] (20 sources) PENICIILIN Propensity to adverse reactions SWELLING OF AIRWAY [facility] Other (3 sources) Acetaminophen; 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: [acetaminophen] Drug Allergy 07-14-19 21 Vomiting [facility] (4 sources) oxyCODONE; 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: [Oxycodone] Drug Allergy 02-08-20 17 Vomiting [facility] (1 source) Penicillins Drug allergy (disorder) 09-23-19 14 [facility] (9 sources) Penicillin G; 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: [penicillin G benzathine] Drug Allergy [facility] (8 sources) Penicillin Drug Allergy anaphylaxis [facility] Other (1 source) Penicillins Drug allergy (disorder) 07-31-19 [facility] (1 source) tamsulosin Drug Allergy 07-31-19 [facility] Repository Medications Current Medications Medication [...] 12:00am July 14, 2020 11:39am Start: 10-10-2014 [place] 325 mg-5 mg oral tablet 1 tab(s), [...] BID, # 60 cap(s), Refills(s) 3, Pharmacy: [facility]/pharmacy #[id number], 182, cm, 02/14/23 8:58:00 EDT, Height/Length Dosing, 94, kg, 01/30/23 10:24:00 EDT, Weight Dosing Start Date: 02/14/23 Status: Ordered take 1 capsule by [facility] once daily Tamsulosin HCl - 0.4 MG Oral Capsule TAKE 1 CAPSULE Daily Quantity: 0 Refills: 0 Ordered: 15-Feb-2023 DO [facility] (20 sources) Start: 01-27-2014 Start: 01-27-2014 [facility] as d irected Use as directed. Jan, Active Tiotropium [place]on (Spiriva With Handihaler) 18 mcg capsule, w/inhalation device (1 source) Start: 07-12-2023 take 1 capsule by inhalation once daily Tiotropium Lindon (Spiriva With Handihaler) 18 mcg capsule, w/inhalation [...] Ordered Start: 07-04-2022 take 1 tablet by [facility] every twelve hours tiZANidine HCl 4 MG 1 tablet as needed Orally Twice a day Jun, Active take 2 tablets by [facility] at bedtime tiZANidine HCl - 4 MG [...] procedure, # 2 cap(s), Refills(s) 0, Pharmacy: [facility]/pharmacy #[id number], 182, cm, 01/30/23 10:24:00 EDT, Height/Length [...] take 1 tablet by mouth once daily Olmesartan-Overton chlorothiazide (Benicar Hct) 40-12.5 mg Tablet Discontinued [...] [Coronary atherosclerosis of unspecified type of vessel, venetie ira or graft] Onset: 2 Resolved: 2 Chronic [...] sources) Long-term current use of insulin; 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: [terminal carman (current) use of insulin] Episodic Other and [...] LE BIon US venous duplex LE BI [facility] Main [place] [address] [place] [address] Ultrasound Report Signed Patient: Solomon Feldman MR#: [id number] : 1965 Acct:[id number] Age/Sex: 57 / M ADM Date: 07/12/23 Loc: ER Room: Type: [facility] ER Attending Dr: Ordering Provider: Nancy [...] Howard Boss MD07/13/2023 11:56 AM Dictation Location: [place] [address] Tech: Nancy Pantoja Transcribed By: BOB 07/13/23 115 Dictated By: Howard Boss MD 07/13/23 1156 Signed By: 07/13/23 115 [facility] US venous duplex UE LTon US venous duplex UE LT [facility] [place] [address] Ultrasound Report Signed Patient: Solomon Feldman SR MR#: [id number] : 1965 Acct:[id number] Age/Sex: 57 / M ADM Date: 07/12/23 Loc: ER Room: Type: [facility] ER Attending Dr: Ordering Provider: Nancy [...] Howard Boss MD07/13/2023 11:56 AM Dictation Location: [place] [address] Tech: Nancy Pantoja Transcribed By: BOB 07/13/23 1156 Dictated By: Howard Boss MD 07/13/23 1155 Signed By: 07/13/23 115 [facility] Activated partial thrombopla stin time (aPTT) in platelet poor plasma by coagulation aOrdered By: Nancy Chaudhari on 07-12-2023 aPTT Coag (PPP) [Time] 29.4 s 25.1-36.5 [facility] Comment on above: A hematocrit value g reater than 55% may lead to inaccurate results in coagulation testing. Patients having hematocrit values >55% require a special collection tube for coagulation studies. Please contact the laboratory at [phone] for redraw instructions. Alanine aminotransferase [En zymatic activity/volume] in Serum or PlasmaOrdered By: Nancy Chaudhari on 07-12-2023 ALT [Catalytic activity/Vol] 9 U/L 7-52 [facility] Albumin [Mass/volume] in Ser um or Plasma by Bromocresol green (BCG) dye binding methoOrdered By: Nancy Chaudhari on 07-12-2023 Albumin BCG dye [Mass/Vol] 3.9 g/dL 3.5-5.7 [facility] Alkaline phosphatase [Enzyma tic activity/volume] in Serum or PlasmaOrdered By: Nancy Chaudhari on 07-12-2023 ALP [Catalytic activity/Vol] 106 U/L 34-104 [facility] Aspartate aminotransferase [ Enzymatic activity/volume] in Serum or PlasmaOrdered By: Nancy Chaudhari on 07-12-2023 AST [Catalytic activity/Vol] 8 U/L 13-39 [facility] B-Type Natriuretic Peptideon 07-12-2023 Natriuretic peptide B (Bld) [Mass/Vol] 34.0 pg/mL Normal 5-100 [facility] Comment on above: Result Comment: PERF ORMED BY: [facility] [address] [place] [address] PATHOLOGIST [place] [place] CLIFFORD LOBATO M.D. Performed By: #### B INFECTIOUS DISEASE TECHNICIAN, CMP, HS TROP, CK, PTT, CBC, PT ####[facility] [id number] [place] [address] [facility] Basophils Auto (Bld) [#/Vol] Ordered By: Nancy Chaudhari on 07-12-2023 Basophils (Bld) [#/Vol] 0.1 10*3/uL 0.0-0.2 [facility] Basophils/100 WBC Auto (Bld) Ordered By: Nancy Chaudhari on 07-12-2023 Basophils/100 WBC (Bld) 1.1 % . [facility] Bilirubin.total [Mass/volume ] in Serum or PlasmaOrdered By: Nancy Chaudhari on 07-12-2023 Bilirubin [Mass/Vol] 0.4 mg/dL 0.3-1.0 [facility] Calcium [Mass/volume] in Ser um or PlasmaOrdered By: Nancy Chaudhari on 07-12-2023 Calcium [Mass/Vol] 8.5 mg/dL 8.6-10.3 [facility] Carbon dioxide, total [Moles /volume] in Serum or PlasmaOrdered By: Nancy Chaudhari on 07-12-2023 CO2 [Moles/Vol] 24.5 mmol/L 21.0-31.0 [facility] Chloride [Moles/volume] in S ilia or PlasmaOrdered By: Nancy Chaudhari on 07-12-2023 Chloride [Moles/Vol] 102 mmol/L 98-107 [facility] Complete Blood Count Auto Di ffon 07-12-2023 Basophils (Bld) [#/Vol] 0.1 10*3/uL Normal 0.0-0.2 [facility] Comment on above: Result Comment: PERF ORMED BY: [facility] [address] [place] [address] PATHOLOGIST [place] CLIFFORD LOBATO M.D. Performed By: #### B INFECTIOUS DISEASE TECHNICIAN, CMP, HS TROP, CK, PTT, CBC, PT ####[address] Basophils/100 WBC (Bld) 1.1 % Normal . [facility] Comment on above: Performed By: #### B INFECTIOUS DISEASE TECHNICIAN, CMP, HS TROP, CK, PTT, CBC, PT ####[facility] Eosinophils (Bld) [#/Vol] 0.3 10*3/uL Normal 0.0-0.45 [facility] Comment on above: Performed By: #### B INFECTIOUS DISEASE TECHNICIAN, CMP, HS TROP, CK, PTT, CBC, PT ####[place] [address] [place] Eosinophils/100 WBC (Bld) 3.3 % Normal . [facility] Comment on above: Performed By: #### B INFECTIOUS DISEASE TECHNICIAN, CMP, HS TROP, CK, PTT, CBC, PT ####[address] Erythrocyte distribution width (RBC) [Ratio] 17.1 % High 12.0-14.8 [facility] Comment on above: Performed By: #### B INFECTIOUS DISEASE TECHNICIAN, CMP, HS TROP, CK, PTT, CBC, PT ####[address] Hematocrit (Bld) [Volume fraction] 32.7 % Low 38.8-50.0 [facility] Comment on above: Performed By: #### B INFECTIOUS DISEASE TECHNICIAN, CMP, HS TROP, CK, PTT, CBC, PT ####[address] Hemoglobin (Bld) [Mass/Vol] 10.6 g/dL Low 13.0-17.0 [facility] Comment on above: Performed By: #### B INFECTIOUS DISEASE TECHNICIAN, CMP, HS TROP, CK, PTT, CBC, PT ####[address] Lymphocytes (Bld) [#/Vol] 1.9 10*3/uL Normal 1.00-4.8 [facility] Comment on above: Performed By: #### B INFECTIOUS DISEASE TECHNICIAN, CMP, HS TROP, CK, PTT, CBC, PT ####[address] Lymphocytes/100 WBC (Bld) 20.0 % Normal . [facility] Comment on above: Performed By: #### B INFECTIOUS DISEASE TECHNICIAN, CMP, HS TROP, CK, PTT, CBC, PT ####[address] MCH (RBC) [Entitic mass] 22.8 pg Low 27.5-35.2 [facility] Comment on above: Performed By: #### B INFECTIOUS DISEASE TECHNICIAN, CMP, HS TROP, CK, PTT, CBC, PT ####[address] MCV (RBC) [Entitic vol] 70.6 fL Low 83.5-101 [facility] Comment on above: Performed By: #### B INFECTIOUS DISEASE TECHNICIAN, CMP, HS TROP, CK, PTT, CBC, PT ####[address] Mean Corpuscular HGB Conc 32.4 g/dL Low 32.5-35.6 [facility] Comment on above: Performed By: #### B INFECTIOUS DISEASE TECHNICIAN, CMP, HS TROP, CK, PTT, CBC, PT ####[address] Monocytes (Bld) [#/Vol] 1.0 10*3/uL High 0.0-0.8 [facility] Comment on above: Performed By: #### B INFECTIOUS DISEASE TECHNICIAN, CMP, HS TROP, CK, PTT, CBC, PT ####[address] Monocytes/100 WBC (Bld) 18.12 % Normal 0.00-20.00 [facility] Comment on above: Performed By: #### B INFECTIOUS DISEASE TECHNICIAN, CMP, HS TROP, CK, PTT, CBC, PT ####[address] Monocytes/100 WBC (Bld) 10.2 % Normal . [facility] Comment on above: Performed By: #### B INFECTIOUS DISEASE TECHNICIAN, CMP, HS TROP, CK, PTT, CBC, PT ####[address] Neutrophils (Bld) [#/Vol] 6.2 10*3/uL Normal 1.8-7.7 [facility] Comment on above: Performed By: #### B INFECTIOUS DISEASE TECHNICIAN, CMP, HS TROP, CK, PTT, CBC, PT ####[address] Neutrophils/100 WBC (Bld) 65.4 % Normal . [facility] Comment on above: Performed By: #### B INFECTIOUS DISEASE TECHNICIAN, CMP, HS TROP, CK, PTT, CBC, PT ####[address] NRBC% 0.1 /100{WBC} Normal 0-0.5 [facility] Comment on above: Performed By: #### B INFECTIOUS DISEASE TECHNICIAN, CMP, HS TROP, CK, PTT, CBC, PT ####[address] Platelet mean volume (Bld) [Entitic vol] 9.1 fL Normal 6.6-10.1 [facility] Comment on above: Performed By: #### B INFECTIOUS DISEASE TECHNICIAN, CMP, HS TROP, CK, PTT, CBC, PT ####[address] Platelets (Bld) [#/Vol] 233 10*3/uL Normal 150-450 [facility] Comment on above: Performed By: #### B INFECTIOUS DISEASE TECHNICIAN, CMP, HS TROP, CK, PTT, CBC, PT ####[address] RBC (Bld) [#/Vol] 4.63 10*6/uL Normal 3.90-5.60 [facility] Comment on above: Performed By: #### B INFECTIOUS DISEASE TECHNICIAN, CMP, HS TROP, CK, PTT, CBC, PT ####[address] WBC (Bld) [#/Vol] 9.5 10*3/uL Normal 4.1-10.5 [facility] Comment on above: Performed By: #### B INFECTIOUS DISEASE TECHNICIAN, CMP, HS TROP, CK, PTT, CBC, PT ####[address] Comprehensive Metabolic Pane bárbara 07-12-2023 Albumin [Mass/Vol] 3.9 g/dL Normal 3.5-5.7 [facility] Comment on above: Performed By: #### B INFECTIOUS DISEASE TECHNICIAN, CMP, HS TROP, CK, PTT, CBC, PT ####[address] Albumin/Globulin [Mass ratio] 1.3 {ratio} Normal [facility] Comment on above: Performed By: #### B INFECTIOUS DISEASE TECHNICIAN, CMP, HS TROP, CK, PTT, CBC, PT ####[address] ALP [Catalytic activity/Vol] 106 U/L High 34-104 [facility] Comment on above: Performed By: #### B INFECTIOUS DISEASE TECHNICIAN, CMP, HS TROP, CK, PTT, CBC, PT ####[address] ALT [Catalytic activity/Vol] 9 U/L Normal 7-52 [facility] Comment on above: Performed By: #### B INFECTIOUS DISEASE TECHNICIAN, CMP, HS TROP, CK, PTT, CBC, PT ####[address] Anion gap [Moles/Vol] 13.4 mmol/L Normal 6.0-15.0 [facility] Comment on above: Performed By: #### B INFECTIOUS DISEASE TECHNICIAN, CMP, HS TROP, CK, PTT, CBC, PT ####[address] AST [Catalytic activity/Vol] 8 U/L Low 13-39 [facility] Comment on above: Performed By: #### B INFECTIOUS DISEASE TECHNICIAN, CMP, HS TROP, CK, PTT, CBC, PT ####[place] [id number] [facility] Bilirubin [Mass/Vol] 0.4 mg/dL Normal 0.3-1.0 [facility] Comment on above: Performed By: #### B INFECTIOUS DISEASE TECHNICIAN, CMP, HS TROP, CK, PTT, CBC, PT ####[place] [id number] [facility] Calcium [Mass/Vol] 8.5 mg/dL Low 8.6-10.3 [facility] Comment on above: Performed By: #### B INFECTIOUS DISEASE TECHNICIAN, CMP, HS TROP, CK, PTT, CBC, PT ####[address] Chloride [Moles/Vol] 102 mmol/L Normal 98-107 [facility] Comment on above: Performed By: #### B INFECTIOUS DISEASE TECHNICIAN, CMP, HS TROP, CK, PTT, CBC, PT ####[place] [id number] [address] CO2 [Moles/Vol] 24.5 mmol/L Normal 21.0-31.0 [facility] Comment on above: Performed By: #### B INFECTIOUS DISEASE TECHNICIAN, CMP, HS TROP, CK, PTT, CBC, PT ####[place] [id number] [facility] Creatinine [Mass/Vol] 1.82 mg/dL High 0.70-1.30 [facility] Comment on above: Performed By: #### B INFECTIOUS DISEASE TECHNICIAN, CMP, HS TROP, CK, PTT, CBC, PT ####[address] Creatinine Clr Calc Pharmacy 54.64 [facility] Comment on above: Result Comment: PERF ORMED BY: [facility] [address] [place] [address] PATHOLOGIST [place] CLIFFORD LOBATO M.D. Performed By: #### B INFECTIOUS DISEASE TECHNICIAN, CMP, HS TROP, CK, PTT, CBC, PT ####[address] GFR/1.73 sq M.predicted MDRD (S/P/Bld) [Vol rate/Area] 42.789 mL/min/{1.73_m2} [facility] Comment on above: Performed By: #### B INFECTIOUS DISEASE TECHNICIAN, CMP, HS TROP, CK, PTT, CBC, PT ####[place] [id number] [facility] Globulin (S) [Mass/Vol] 3.1 g/dL [facility] Comment on above: Performed By: #### B INFECTIOUS DISEASE TECHNICIAN, CMP, HS TROP, CK, PTT, CBC, PT ####[place] [id number] [facility] Glucose [Mass/Vol] 302 mg/dL High 70-100 [facility] Comment on above: Result Comment: Alee goel Glucose Reference Range is dependent on time and content of last meal. Glucose of more than 200 mg/dL in a nonstressed, ambulatory subject supports the diagnosis of Diabetes Mellitus. ADA recommended reference range Performed By: #### B INFECTIOUS DISEASE TECHNICIAN, CMP, HS TROP, CK, PTT, CBC, PT ####[address] Potassium [Moles/Vol] 3.9 mmol/L Normal 3.5-5.1 [facility] Comment on above: Performed By: #### B INFECTIOUS DISEASE TECHNICIAN, CMP, HS TROP, CK, PTT, CBC, PT ####[place] [id number] [facility] Protein [Mass/Vol] 7.0 g/dL Normal 6.4-8.9 [facility] Comment on above: Performed By: #### B INFECTIOUS DISEASE TECHNICIAN, CMP, HS TROP, CK, PTT, CBC, PT ####[place] [id number] [facility] Sodium [Moles/Vol] 136 mmol/L Normal 136-145 [facility] Comment on above: Performed By: #### B INFECTIOUS DISEASE TECHNICIAN, CMP, HS TROP, CK, PTT, CBC, PT ####[place] [id number] [facility] Urea nitrogen [Mass/Vol] 16 mg/dL Normal 7-25 [facility] Comment on above: Performed By: #### B INFECTIOUS DISEASE TECHNICIAN, CMP, HS TROP, CK, PTT, CBC, PT ####[place] [id number] [facility] Creatine Kinaseon 07-12-2023 CK [Catalytic activity/Vol] 55 U/L Normal 30-223 [facility] Comment on above: Performed By: #### B INFECTIOUS DISEASE TECHNICIAN, CMP, HS TROP, CK, PTT, CBC, PT ####[place] [id number] [facility] Creatine kinase [Enzymatic a ctivity/volume] in Serum or PlasmaOrdered By: Nancy Chaudhari on 07-12-2023 CK [Catalytic activity/Vol] 55 U/L 30-223 [facility] Creatinine [Mass/volume] in Serum or PlasmaOrdered By: Nancy Chaudhari on 07-12-2023 Creatinine [Mass/Vol] 1.82 mg/dL 0.70-1.30 [facility] ECG 12 lead ECGon 07-12-2023 ECG 12 lead ECG [facility] Main [place] [id number] Electrocardiograph Report Signed Patient: Solomon Feldman SR MR#: [id number] : 1965 Acct:[id number] Age/Sex: 57 / M ADM Date: 07/12/23 Loc: ER Room: Type: [facility] ER Attending Dr: Ordering Provider: Nancy [...] By Nancy Chaudhari MD 01/26 0135 Normal [facility] Eosinophils Auto (Bld) [#/Vo l]Ordered By: Nancy Chaudhari on 07-12-2023 Eosinophils (Bld) [#/Vol] 0.3 10*3/uL 0.0-0.45 [facility] Eosinophils/100 WBC Auto (Bl d)Ordered By: Nnacy Chaudhari on 07-12-2023 Eosinophils/100 WBC (Bld) 3.3 % . [facility] Erythrocyte distribution wid th Auto (RBC) [Ratio]Ordered By: Nancy Chaudhari on 07-12-2023 Erythrocyte distribution width (RBC) [Ratio] 17.1 % 12.0-14.8 [facility] Globulin Calc (S) [Mass/Vol] Ordered By: Nancy Chaudhari on 07-12-2023 Globulin (S) [Mass/Vol] 3.1 g/dL [facility] Glucose [Mass/volume] in Ser um or PlasmaOrdered By: Nancy Chaudhari on 07-12-2023 Glucose [Mass/Vol] 302 mg/dL 70-100 [facility] Comment on above: ADA recommended refe rence rangeRandom Glucose Reference Range is dependent on time and content of last meal. Glucose of more than 200 mg/dL in a nonstressed, ambulatory subject supports the diagnosis of Diabetes Mellitus. Hematocrit Auto (Bld) [Volum e fraction]Ordered By: Nancy Chaudhari on 07-12-2023 Hematocrit (Bld) [Volume fraction] 32.7 % 38.8-50.0 [facility] Hemoglobin [Mass/volume] in BloodOrdered By: Nancy Chaudhari on 07-12-2023 Hemoglobin (Bld) [Mass/Vol] 10.6 g/dL 13.0-17.0 [facility] INR in Platelet poor plasma by Coagulation assayOrdered By: Nancy Chaudhari on 07-12-2023 INR Coag (PPP) [Relative time] 1.1 {INR} [facility] Comment on above: INR Therapeutic [...] RBC Auto (Bld) [#/Vol] 9.5 10*3/uL 4.1-10.5 [facility] Lymphocytes Auto (Bld) [#/Vo l]Ordered By: Nancy Chaudhari on 07-12-2023 Lymphocytes (Bld) [#/Vol] 1.9 10*3/uL 1.00-4.8 [facility] Lymphocytes/100 WBC Auto (Bl d)Ordered By: Nancy Chaudhari on 07-12-2023 Lymphocytes/100 WBC (Bld) 20.0 % . [facility] MCH Auto (RBC) [Entitic mass ]Ordered By: Nancy Chaudhari on 07-12-2023 MCH (RBC) [Entitic mass] 22.8 pg 27.5-35.2 [facility] MCHC Auto (RBC) [Mass/Vol]Or dered By: Nancy Chaudhari on 07-12-2023 MCHC (RBC) [Mass/Vol] 32.4 g/dL 32.5-35.6 [facility] MCV Auto (RBC) [Entitic vol] Ordered By: Nancy Chaudhari on 07-12-2023 MCV (RBC) [Entitic vol] 70.6 fL 83.5-101 [facility] Monocyte distribution width [Entitic volume] in Blood by AutomatedOrdered By: Nancy Chaudhari on 07-12-2023 Monocyte distribution width Auto (Bld) [Entitic vol] 18.12 % 0.00-20.00 [facility] Monocytes Auto (Bld) [#/Vol] Ordered By: Nancy Chaudhari on 07-12-2023 Monocytes (Bld) [#/Vol] 1.0 10*3/uL 0.0-0.8 [facility] Monocytes/100 WBC Auto (Bld) Ordered By: Nancy Chaudhari on 07-12-2023 Monocytes/100 WBC (Bld) 10.2 % . [facility] Natriuretic peptide B [Mass/ Vol]Ordered By: Nancy Chaudhari on 07-12-2023 Natriuretic peptide B (Bld) [Mass/Vol] 34.0 pg/mL 5-100 [facility] Neutrophils Auto (Bld) [#/Vo l]Ordered By: Nancy Chaudhari on 07-12-2023 Neutrophils (Bld) [#/Vol] 6.2 10*3/uL 1.8-7.7 [facility] Neutrophils/100 WBC Auto (Bl d)Ordered By: Nancy Chaudhari on 07-12-2023 Neutrophils/100 WBC (Bld) 65.4 % . [facility] No Panel InformationOrdered By: Nancy Chaudhari on 07-12-2023 Estimated GFR (CKD-EPI) 42.789 mL/Min [facility] Pharmacy Creatinine Clearance (Chem 54.64 [facility] Nucleated erythrocytes [Pres ence] in Blood by Automated countOrdered By: Nancy Chaudhari on 07-12-2023 Nucleated RBC Auto Ql (Bld) 0.1 /100{WBC} 0-0.5 [facility] Partial Thromboplastin Timeo n 07-12-2023 aPTT Coag (Bld) [Time] 29.4 s Normal 25.1-36.5 [facility] Comment on above: Result Comment: A he matocrit value greater than 55% may lead to inaccurate results in coagulation testing. Patients having hematocrit values >55% require a special collection tube for coagulation studies. Please contact the laboratory at [phone] for redraw instructions. PERFORMED BY: [facility] [address] [place] [address] PATHOLOGIST [place] [place] CLIFFORD LOBATO M.D. Performed By: #### B INFECTIOUS DISEASE TECHNICIAN, CMP, HS TROP, CK, PTT, CBC, PT ####[facility] [address] [place] [address] [facility] Platelet mean volume Auto (B ld) [Entitic vol]Ordered By: Nancy Chaudhari on 07-12-2023 Platelet mean volume (Bld) [Entitic vol] 9.1 fL 6.6-10.1 [facility] Platelets Auto (Bld) [#/Vol] Ordered By: Nancy Chaudhari on 07-12-2023 Platelets (Bld) [#/Vol] 233 10*3/uL 150-450 [facility] Potassium [Moles/volume] in Serum or PlasmaOrdered By: Nancy Chaudhari on 07-12-2023 Potassium [Moles/Vol] 3.9 mmol/L 3.5-5.1 [facility] Protein [Mass/volume] in Ser um or PlasmaOrdered By: Nancy Chaudhari on 07-12-2023 Protein [Mass/Vol] 7.0 g/dL 6.4-8.9 [facility] Prothrombin Time INRon 07-12 INR Coag (PPP) [Relative time] 1.1 {INR} Normal [facility] Comment on above: Result Comment: [...] 3 - 4.5 Performed By: #### B INFECTIOUS DISEASE TECHNICIAN, CMP, HS TROP, CK, PTT, CBC, PT ####[facility] [id number] [place] [id number] [facility] [employer] PT Coag (PPP) [Time] 12.1 s Normal 9.0-12.9 [facility] Comment on above: Result Comment: A he matocrit value greater than 55% may lead to inaccurate results in coagulation testing. Patients having hematocrit values >55% require a special collection tube for coagulation studies. Please contact the laboratory at [phone] for redraw instructions. Performed By: #### B INFECTIOUS DISEASE TECHNICIAN, CMP, HS TROP, CK, PTT, CBC, PT ####[facility] [place] [id number] [facility] Prothrombin time (PT)Ordered By: Nancy Chaudhari on 07-12-2023 PT Coag (PPP) [Time] 12.1 s 9.0-12.9 [facility] Comment on above: A hematocrit value g reater than 55% may lead to inaccurate results in coagulation testing. Patients having hematocrit values >55% require a special collection tube for coagulation studies. Please contact the laboratory at [phone] for redraw instructions. RBC Auto (Bld) [#/Vol]Ordere d By: Nancy Chaudhari on 07-12-2023 RBC (Bld) [#/Vol] 4.63 10*6/uL 3.90-5.60 [facility] Serum or plasma albumin/glob ulin mass ratioOrdered By: Nancy Chaudhari on 07-12-2023 Albumin/Globulin [Mass ratio] 1.3 {ratio} [facility] Serum or plasma anion gap de terminationOrdered By: Nancy Chaudhari on 07-12-2023 Anion gap [Moles/Vol] 13.4 mmol/L 6.0-15.0 [facility] Sodium [Moles/volume] in Ser um or PlasmaOrdered By: Nancy Chaudhari on 07-12-2023 Sodium [Moles/Vol] 136 mmol/L 136-145 [facility] Troponin I High Sensitivityo n 07-12-2023 Troponin I High Sensitivity 4.6 pg/mL Normal 0.0-20.0 [facility] Comment on above: Result Comment: PERF ORMED BY: [place] [address] PATHOLOGIST EVP [place] CLIFFORD LOBATO M.D. Performed By: #### B INFECTIOUS DISEASE TECHNICIAN, CMP, HS TROP, CK, PTT, CBC, PT ####[facility] [address] [place], [place] [address] Troponin I.cardiac [Mass/vol ume] in Serum or Plasma by Detection limit <= 0.01 ng/Ordered By: Nancy Chaudhari on 07-12-2023 Troponin I.cardiac DL <= 0.01 ng/mL [Mass/Vol] 4.6 pg/mL 0.0-20.0 [facility] Urea nitrogen [Mass/volume] in Serum or PlasmaOrdered By: Nancy Chaudhari on 07-12-2023 Urea nitrogen [Mass/Vol] 16 mg/dL 7-25 [facility] WBC Auto (Bld) [#/Vol]Ordere d By: Nancy Chaudhari on 07-12-2023 WBC (Bld) [#/Vol] 9.5 10*3/uL 4.1-10.5 [facility] XR chest 1V portableon 07-12 XR chest 1V portable [facility] Main [place] [address] [place] [address] XRay Report Signed Patient: Solomon Feldman SR MR#: [id number] : 1965 Acct:[id number] Age/Sex: 57 / M ADM Date: 07/12/23 [...] Sudeep Lind M.D.07/12/2023 5:08 PM Dictation Location: [place] [address] Transcribed By: [facility] 07/12/231707 Dictated By: Sudeep Lind DO 07/12/231706 Signed By: 07/12/231707 [facility] Patient Educationon 06-02-20 Patient Education Urology Benign [...] Follow these instructions at home: ? Take fkmy-igi-nbuirvi and prescription medicines only as told by [...] (more content not included)... Normal [facility] Retail - Clinical Noteon Retail - Clinical Note [id number]#1.00TIFF [facility] Urology Office/Clinic Noteon 06-02-2023 Urology Office/Clinic Note Chief Complaint S/p to Cysto HPI Staff Sp to Cysto done @ [facility] on 02/14/23- Has not noticed any difference- [...] Contact Information SOLEDAD HERRERA, Yeyo Blum, URL [facility] [place] [id number]- Additional Instructions: 1 month w/ cath volumes [...] (more content not included)... Normal [facility] Comment on above: Result Comment: Elec tronically Signed By: Yeyo SILVESTRE MD\.br\Date and Time Signed: 06/02/23 12:16 EST\.br\Electronically Co-Signed By: Mattie Foster.br\Date and Time Co-Signed: 12/29/23 12:04 EST Patient Educationon 11-29-20 23 Patient Education Normal [facility] Pathology Noteon 05-02-2023 Pathology Note [id number]#1.00TIFF Normal [facility] Lab Reportson 04-14-2023 Lab Reports [id number]#1.00TIFF Normal [facility] Operative Reporton Operative Report [id number]#1.00TIFF Normal [facility] Patient Correspondenceon Patient Correspondence [id number]#1.00TIFF Normal [facility] Lab Reportson 03-31-2023 Lab Reports [id number]#1.00TIFF Normal [facility] RAD - MISCon 03-31-2023 RAD - MISC [id number]#1.00TIFF Normal [facility] Patient Correspondenceon Patient Correspondence [id number]#1.00TIFF Normal [facility] Formson 03-23-2023 Forms [id number]#1.00TIFF Normal [facility] A1C HEMOGLOBINon 03-15-2023 HbA1c (Bld) [Mass fraction] 7.5 % [employer] Other HbA1c (Bld) [Mass fraction]o n 03-15-2023 A1C HEMOGLOBIN [employer] Other Lab Reportson 03-09-2023 Lab Reports [id number]#1.00TIFF Normal [facility] Consultation Noteon 02-28-20 Consultation Note [id number]#1.00CD:12 7 Normal [facility] Consent for Procedure/Surger yon 02-15-2023 Consent for Procedure/Surgery [id number]#1.00CD:12 7 Normal [facility] Office Visit (Cardiology)on 02-15-2023 Follow-up visit Diagnoses/Problems [...] in adult Healthy Weight Tips; Status:Complete; Done: [id number] Patient Instructions Please bring all medicines, vitamins, [...] Sia HERRERA, (more content not included)... Normal [employer] Tobacco Screening.on 023 Fall risk assessment c) Not medically indicated -[facility] [address] DO Work Phone: Tobacco use status CP b) No -[facility] DO Work Phone: Tobacco Screening. Yes [facility] DO Work Phone: Consent for Procedure/Surger yon 02-14-2023 Consent for Procedure/Surgery [id number]#1.00CD:1 27 [facility] Consent for Procedure/Surgery [id number]#1.00CD:1 27 [facility] Consent for Treatmenton 02-03 Consent for Treatment [id number]#1.00CD:12 7 [facility] IntraOperative Documentson 0 02-14-2023 IntraOperative Documents [id number]#1.00CD:1 27 [facility] IntraOperative Documents [id number]#1.00CD:1 27 [facility] Main OR Intraoperative Recor don 02-14-2023 Main OR Intraoperative Record IntraOp Document Type FTURO Summary Primary Physician: Yeyo SILVESTRE MD Finalized Date/Time: 02/14/23 10:18:58 Pt. Name: SOLOMON FELDMAN SR/Sex: 1965 Male Med Rec #: [id number] Physician: Yeyo SILVESTRE MD Financial #: [id number] Pt. Type: O Room/Bed: / Admit/Disch: 02/14/23 [...] Sheri Daniel Role Performed Surgeon - Primary Human Resources Benefits Manager - Primary Scrub - Primary Time In [...] Martínez RN 02/14/23 10:18 Normal [facility] Main OR Preoperative Recordo n 02-14-2023 Main OR Preoperative Record Holding Area Document Type FTURO Summary Primary Physician: Yeyo SILVESTRE MD Finalized Date/Time: 02/14/23 09:01:37 Pt. Name: GASTON CHRISTIANSOLOMON/Sex: 1965 Male Med Rec #: [id number] Physician: Yeyo SILVESTRE MD Financial #: [id number] Pt. Type: O Room/Bed: / Admit/Disch: 02/14/23 [...] Bolivar RN 02/14/23 09:01 Normal [facility] Operative Reporton Operative Report Patient: GASTON CHRISTIAN [...] coverage, Follow up arranged. Normal [facility] Comment on above: Result Comment: Elec tronically [...] including vitamins, herbs, eye drops, creams, and lmyw-spo-qmzdiwu medicines. ? Any problems you or family [...] tells you to take them. ? Taking pkqu-mln-puekvwh medicines, vitamins, herbs, and supplements. Surgery safety [...] (more content not included)... Normal [facility] Progress Note-Physicianon Progress Note-Physician Patient: SOLOMON FELDMAN [...] mg = 1 tab(s), PRN, SubLingual, q5min Le Roy 325 mg-5 mg oral tablet 1 tab(s), [...] 278.00 / Possible Fibromyalgia / SNOMED CT [id number] [id number] / Confirmed Restless leg / ICD-9-CM 333.94 / Confirmed Arthritis / SNOMED CT 65QS0471-9N2M-55Z4-4Q8T-U [id number] / Confirmed Hyperlipidemia / SNOMED CT 27024903 / Confirmed Smoker / SNOMED CT N249OE5K-5718-03F1-8904-D GS9M2188UB2 / Confirmed Added secondary to documentation in Social History. Asthma / SNOMED CT 538474984 / Confirmed COPD type A / SNOMED CT 830252282 / Confirmed Head ache / SNOMED CT 80148645 / Confirmed Heart attack / SNOMED CT 83067430 / Confirmed Heart disease / SNOMED CT 39095218 / Confirmed Heart murmur / SNOMED CT 878918457 / Confirmed Urinary retention / SNOMED CT 860920335 / Confirmed BPH with obstruction/lower urinary tract symptoms / SNOMED CT 4415343768 / Confirmed Orchitis / SNOMED CT 103491562 / Confirmed Gross hematuria / SNOMED CT 107191789 / Confirmed Tobacco use / SNOMED CT WRLX6757-8513-7L96-G1S6-0 90211OA6OD7 / Confirmed Added secondary to social history documentation. Histories Past Medical History: Active Fibromyalgia ([id number]-6109-59G9- 6532219C83E8) Restless leg (333.94) Arthritis (92SX5323-0L7N-18L3-5X8U- UIJ1P536P649) Hyperlipidemia (11142794) Resolved HTN [Hypertension] (401.9): Resolved. NIDDM (250.00): Resolved. GERD [Gastroesophageal reflux disease] (530.81): Resolved. CHF (congestive heart failure) (D2421594-8X1P-9X7X-9Y24- A738189C9P50): Resolved. MA (myocardial infarction) (520H5ULL-81Z7-0D1A-5J52- 33304N85N6GR): Resolved. Family History: Diabetes mellitus Mother Heart disease Mother Alcoholism Brother Drug addiction Brother Acute myocardial infarction Mother Grandparent Procedure history: Bilateral Eye Surgery. Comments: 07/10/2014 17:25 ALESHA Cormier RN, Kati bilateral cataracts with iol implants Bilateral Carpal Tunnel Surgery. cardiac stents. Appendectomy (340290601). Colonoscopy (456699057). Cataract extraction and insertion of intraocular lens (1102959214). Procedure on back (431162163). Social History Social & Psychosocial Habits Alcohol [...] (more content not included)... Normal [facility] Comment on above: Result Comment: Elec tronically Signed By: SOLEDAD HERRERA, Yeyo Blum\.br\Date and Time Signed: 02/14/23 09:58 EDT Consent for Treatmenton Consent for Treatment [id number]#1.00CD:12 7 [facility] Ambulatory Visit Summaryon 0 01-30-2023 Ambulatory Visit Summary SOLOMON FELDMAN SR :1965 Visit Date:01/30/2023 Ambulatory Visit Instructions Your Diagnosis Urinary retention Gross hematuria BPH with obstruction/lower urinary tract symptoms Orchitis Your Care Team Attending Physician - Yeyo SILVESTRE MD Primary Care Physician - JENARO LYNCH DO This Is Your Medications List Contact prescribing physician if questions or concerns acetaminophen-hydrocodone (Le Roy 325 mg-5 mg oral tablet) albuterol (ProAir [...] [facility] [address] , [place] [phone] Medications What How Much When Instructions Unchanged acetaminophen-hydrocodone ([place] 325 mg-5 mg oral tablet) 1 Tablets [...] (more content not included)... Normal [facility] Patient Educationon 01-31-20 23 Patient Education Urology [...] including vitamins, herbs, eye drops, creams, and ulsu-npo-xnrxwhc medicines. ? Whether you are or may [...] be (more content not included)... Normal [facility] Urology Office/Clinic Noteon 01-30-2023 Urology Office/Clinic Note [...] URL [facility] [address], [place] [phone] Additional Instructions: sched cysto/uros Patient Education Urodynamic [...] failure) GERD [Gastroesophageal reflux disease] HTN [Hypertension] MA (myocardial infarction) NIDDM Procedure/Surgical History Appendectomy, Bilateral [...] (more content not included)... Normal [facility] Comment on above: Result Comment: Elec tronically Signed By: Saima Sutton\.br\Date and Time Signed: 01/30/23 11:38 EDT [facility] CARDIAC STRESS/REST INJE CTIONon 01-25-2023 [facility] CARDIAC STRESS/REST INJECTION Patient Name: SOLOMON FELDMAN STUDY: MYOCARDIAL PERFUSION STRESS TEST WITH EXERCISE CONVERTED TO LEXISCAN Performing facility: [facility], [address] [place] [address], [address], [place] [address] [facility] Provider: Dolores Feldman RN, TRACK MOVING MACHINE OPERATOR PCP: Dr. Jenaro Lynch Supervising provider: Pascale Purvis MD, [facility] INDICATION: Anginal equivalent CAD; HISTORY: Gender: M; Age: 57 y/o ; Height: 182.88 cm; Weight: 97.4721064 kg. High Cholesterol; CAD; Diabetes; HTN; Palpitations; Chest Pain; Quit smoking unknown years ago. COMPARISON: Previous nuclear testing completed at [facility]. ACCESSION NUMBER(S): [id number]; [id number]; [id number] ORDERING CLINICIAN: DOLORES FELDMAN TECHNIQUE: ONE DAY [...] Electronically signed by: PASCALE PURVIS MD Normal [facility] No Panel Informationon 01-25 Normal -[facility] [address] DO Work Phone: Office [...] contact the office if new symptoms arise. INFECTIOUS DISEASE TECHNICIAN after procedure Chief Complaint Routine f/u: [...] Screening.on 023 Adult depression screening assessment No [facility] [address] DO Work Phone: Tobacco use status [facility] b) No [facility] 600 DO Work Phone: Ambulatory Visit Summaryon 0 12-28-2022 Ambulatory Visit Summary GASTON CHRISTIAN, SOLOMON María :1965 Visit Date:12/28/2022 Ambulatory Visit Instructions Your Care Team Attending Physician - SOLEDAD HERRERA, Yeyo Blum Primary Care Physician - JENARO LYNCH DO This Is Your Medications List acetaminophen-hydrocodone ([place] 325 mg-5 mg oral tablet) albuterol (ProAir [...] HERRERA, Yeyo Blum Where: [facility] Aurelio Normal [facility] Formson 11-24-2022 Forms [id number]#1.00CD:127 Normal [facility] Screenson 11-24-2022 Screens [id number]#1.00CD:1 27 Normal [facility] Patient Educationon 11-24-19 23 Patient Education Urology [...] provider. Document Revised: 08/11/2021 Document Reviewed: 05/07/2021 [employer] Patient Education ? 2021 [employer]. Marquise [facility] Urology Office/Clinic Noteon 11-23-2022 Urology Office/Clinic Note [...] the bladder. Discussed that pt will need ubrt placed for at least a month. 18 [...] [facility] [address] , [place] [address]- Additional Instructions: 1 month for cath change [...] failure) GERD [Gastroesophageal reflux disease] HTN [Hypertension] MA (myocardial infarction) NIDDM Procedure/Surgical History Appendectomy, Bilateral Carpal Tunnel Surgery, Bilateral Eye Surgery, cardiac stents, Ca (more content not included)... Normal [facility] Comment on above: Result Comment: Elec tronically Signed By: Yeyo SILVESTRE MD\.br\Date and Time Signed: 11/23/22 12:47 EDT\.br\Electronically Co-Signed By: Lorie Leblanc\.br\Date and Time Co-Signed: 11/23/22 12:46 EDT A1C with Estimated Average G [facility] 09-27-2022 Glucose [Mass/Vol] 246 mg/dL Normal [facility] Comment on above: Order Comment: Reaso n for Exam Type 2 diabetes mellitus with circulatory disorder Result Comment: PERF ORMED BY: [place] [address] PATHOLOGIST EVP [place] CLIFFORD LOBATO M.D. Performed By: #### A 1C [facility] eA #### [facility] [address] [place] [address] HbA1c (Bld) [Mass fraction] 10.2 % High 4.3-5.6 [facility] Comment on above: Order Comment: Reaso n for Exam Type 2 diabetes mellitus with circulatory disorder Result Comment: Incr eased risk for diabetes: 5.7 - 6.4 diabetes: >6.4 glycemic control for adults with diabetes: <7.0 Performed By: #### A 1C WT eA #### [facility] [address] [place] [id number] [facility] Alanine aminotransferase [En zymatic activity/volume] in Serum or PlasmaOrdered By: Jenaro Lynch on 09-27-2022 ALT [Catalytic activity/Vol] 15 U/L 7-52 [facility] Albumin [Mass/volume] in Ser um or Plasma by Bromocresol green (BCG) dye binding methoOrdered By: Jenaro Lynch on 09-27-2022 Albumin BCG dye [Mass/Vol] 4.1 g/dL 3.5-5.7 [facility] Alkaline phosphatase [Enzyma tic activity/volume] in Serum or PlasmaOrdered By: Jenaro Lynch on 09-27-2022 ALP [Catalytic activity/Vol] 116 U/L 34-104 [facility] Aspartate aminotransferase [ Enzymatic activity/volume] in Serum or PlasmaOrdered By: Jenaro Lynch on 09-27-2022 AST [Catalytic activity/Vol] 15 U/L 13-39 [facility] Basophils Auto (Bld) [#/Vol] Ordered By: Jenaro Lynch on 09-27-2022 Basophils (Bld) [#/Vol] 0.1 10*3/uL 0.0-0.2 [facility] Basophils/100 WBC Auto (Bld) Ordered By: Jenaro Lynch on 09-27-2022 Basophils/100 WBC (Bld) 1.1 % . [facility] Bilirubin.total [Mass/volume ] in Serum or PlasmaOrdered By: Jenaro Lynch on 09-27-2022 Bilirubin [Mass/Vol] 0.4 mg/dL 0.3-1.0 [facility] Calcium [Mass/volume] in Ser um or PlasmaOrdered By: Jenaro Lynch on 09-27-2022 Calcium [Mass/Vol] 8.8 mg/dL 8.6-10.3 [facility] Carbon dioxide, total [Moles /volume] in Serum or PlasmaOrdered By: Jenaro Lynch on 09-27-2022 CO2 [Moles/Vol] 27.2 mmol/L 21.0-31.0 [facility] Chloride [Moles/volume] in S ilia or PlasmaOrdered By: Jenaro Lynch on 09-27-2022 Chloride [Moles/Vol] 99 mmol/L 98-107 [facility] Cholesterol [Mass/volume] in Serum or PlasmaOrdered By: Jenaro Lynch on 09-27-2022 Cholesterol [Mass/Vol] 104 mg/dL 140-200 [facility] Comment on above: Chol less than 200 m g/dl low riskChol 201-239 mg/dl borderline riskChol 240 mg/dl and greater high risk Cholesterol in LDL Calc [Mas s/Vol]Ordered By: Jenaro Lynch on 09-27-2022 Cholesterol in LDL [Mass/Vol] TNP [facility] Comment on above: Test not performed Cholesterol in LDL [Mass/vol ume] in Serum or PlasmaOrdered By: Jenaro Lynch on 09-27-2022 Cholesterol in LDL [Mass/Vol] 38 mg/dL 0-100 [facility] Comment on above: LDL ATP III CLASSIFI CATIONLDL less than 100 mg/dL OptimalLDL 100-129 mg/dL Near or above optimalLDL 130-159 mg/dL Borderline highLDL 160-189 mg/dL HighLDL greater than 189 mg/dL Very high Cholesterol in VLDL Calc [Ma ss/Vol]Ordered By: Jenaro Lynch on 09-27-2022 Cholesterol in VLDL [Mass/Vol] 99 mg/dL [facility] Complete Blood Count Auto Di ffon 09-27-2022 Basophils (Bld) [#/Vol] 0.1 10*3/uL Normal 0.0-0.2 [facility] Comment on above: Order Comment: Reaso n for Exam Hyperlipidemia;Type 2 diabetes mellitus with circulatory dis Result Comment: PERF ORMED BY: [place] [address] PATHOLOGIST EVP [place] CLIFFORD LOBATO M.D. Performed By: #### C BC #### [facility] [address] [place] [address] [place] Basophils/100 WBC (Bld) 1.1 % Normal . [facility] Comment on above: Order Comment: Reaso n for Exam Hyperlipidemia;Type 2 diabetes mellitus with circulatory dis Performed By: #### C BC #### [facility] [address] [place] [address] [place] Eosinophils (Bld) [#/Vol] 0.7 10*3/uL High 0.0-0.45 [facility] Comment on above: Order Comment: Reaso n for Exam Hyperlipidemia;Type 2 diabetes mellitus with circulatory dis Performed By: #### C BC #### [facility] [address] [place] [id number] [place] Eosinophils/100 WBC (Bld) 5.9 % Normal . [facility] Comment on above: Order Comment: Reaso n for Exam Hyperlipidemia;Type 2 diabetes mellitus with circulatory dis Performed By: #### C BC #### [address] Erythrocyte distribution width (RBC) [Ratio] 16.0 % High 12.0-14.8 [facility] Comment on above: Order Comment: Reaso n for Exam Hyperlipidemia;Type 2 diabetes mellitus with circulatory dis Performed By: #### C BC #### [address] Hematocrit (Bld) [Volume fraction] 41.0 % Normal 38.8-50.0 [facility] Comment on above: Order Comment: Reaso n for Exam Hyperlipidemia;Type 2 diabetes mellitus with circulatory dis Performed By: #### C BC #### [place] [address] [place] Hemoglobin (Bld) [Mass/Vol] 13.2 g/dL Normal 13.0-17.0 [facility] Comment on above: Order Comment: Reaso n for Exam Hyperlipidemia;Type 2 diabetes mellitus with circulatory dis Performed By: #### C BC #### [place] [address] [place] Lymphocytes (Bld) [#/Vol] 2.3 10*3/uL Normal 1.00-4.8 [facility] Comment on above: Order Comment: Reaso n for Exam Hyperlipidemia;Type 2 diabetes mellitus with circulatory dis Performed By: #### C BC #### [place] [address] [place] Lymphocytes/100 WBC (Bld) 18.2 % Normal . [facility] Comment on above: Order Comment: Reaso n for Exam Hyperlipidemia;Type 2 diabetes mellitus with circulatory dis Performed By: #### C BC #### [facility] [address] MCH (RBC) [Entitic mass] 23.9 pg Low 27.5-35.2 [facility] Comment on above: Order Comment: Reaso n for Exam Hyperlipidemia;Type 2 diabetes mellitus with circulatory dis Performed By: #### C BC #### [address] MCV (RBC) [Entitic vol] 74.3 fL Low 83.5-101 [facility] Comment on above: Order Comment: Reaso n for Exam Hyperlipidemia;Type 2 diabetes mellitus with circulatory dis Performed By: #### C BC #### [address] Mean Corpuscular HGB Conc 32.2 g/dL Low 32.5-35.6 [facility] Comment on above: Order Comment: Reaso n for Exam Hyperlipidemia;Type 2 diabetes mellitus with circulatory dis Performed By: #### C BC #### [place] [address] [place] Monocytes (Bld) [#/Vol] 1.0 10*3/uL High 0.0-0.8 [facility] Comment on above: Order Comment: Reaso n for Exam Hyperlipidemia;Type 2 diabetes mellitus with circulatory dis Performed By: #### C BC #### [place] [address] [place] Monocytes/100 WBC (Bld) 7.9 % Normal . [facility] Comment on above: Order Comment: Reaso n for Exam Hyperlipidemia;Type 2 diabetes mellitus with circulatory dis Performed By: #### C BC #### [place] [address] [place] Neutrophils (Bld) [#/Vol] 8.3 10*3/uL High 1.8-7.7 [facility] Comment on above: Order Comment: Reaso n for Exam Hyperlipidemia;Type 2 diabetes mellitus with circulatory dis Performed By: #### C BC #### [place] [address] [place] Neutrophils/100 WBC (Bld) 66.9 % Normal . [facility] Comment on above: Order Comment: Reaso n for Exam Hyperlipidemia;Type 2 diabetes mellitus with circulatory dis Performed By: #### C BC #### [facility] [address] NRBC% 0.1 /100{WBC} Normal 0-0.5 [facility] Comment on above: Order Comment: Reaso n for Exam Hyperlipidemia;Type 2 diabetes mellitus with circulatory dis Performed By: #### C BC #### [facility] [address] Platelet mean volume (Bld) [Entitic vol] 9.1 fL Normal 6.6-10.1 [facility] Comment on above: Order Comment: Reaso n for Exam Hyperlipidemia;Type 2 diabetes mellitus with circulatory dis Performed By: #### C BC #### [facility] [address] Platelets (Bld) [#/Vol] 209 10*3/uL Normal 150-450 [facility] Comment on above: Order Comment: Reaso n for Exam Hyperlipidemia;Type 2 diabetes mellitus with circulatory dis Performed By: #### C BC #### [address] RBC (Bld) [#/Vol] 5.52 10*6/uL Normal 3.90-5.60 [facility] Comment on above: Order Comment: Reaso n for Exam Hyperlipidemia;Type 2 diabetes mellitus with circulatory dis Performed By: #### C BC #### [place] [address] [place] WBC (Bld) [#/Vol] 12.4 10*3/uL High 4.1-10.5 [facility] Comment on above: Order Comment: Reaso n for Exam Hyperlipidemia;Type 2 diabetes mellitus with circulatory dis Performed By: #### C BC #### [address] Comprehensive Metabolic Pane bárbara 09-27-2022 Albumin [Mass/Vol] 4.1 g/dL Normal 3.5-5.7 [facility] Comment on above: Order Comment: Reaso n for Exam Hyperlipidemia;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 Reason for Exam Gout Performed By: #### T SH3, LDLD, CMP, URIC, LIPID #### [facility] [address] Albumin/Globulin [Mass ratio] 1.4 {ratio} Normal [facility] Comment on above: Order Comment: Reaso n for Exam Hyperlipidemia;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 Reason for Exam Gout Performed By: #### T SH3, LDLD, CMP, URIC, LIPID #### [facility] [address] ALP [Catalytic activity/Vol] 116 U/L High 34-104 [facility] Comment on above: Order Comment: Reaso n for Exam Hyperlipidemia;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 Reason for Exam Gout Performed By: #### T SH3, LDLD, CMP, URIC, LIPID #### [facility] [address] ALT [Catalytic activity/Vol] 15 U/L Normal 7-52 [facility] Comment on above: Order Comment: Reaso n for Exam Hyperlipidemia;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 Reason for Exam Gout Performed By: #### T SH3, LDLD, CMP, URIC, LIPID #### [facility] [address] [place] [address] Anion gap [Moles/Vol] 14.1 mmol/L Normal 6.0-15.0 [facility] Comment on above: Order Comment: Reaso n for Exam Hyperlipidemia;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 Reason for Exam Gout Performed By: #### T SH3, LDLD, CMP, URIC, LIPID #### [facility] [address] [place] [id number] [place] AST [Catalytic activity/Vol] 15 U/L Normal 13-39 [facility] Comment on above: Order Comment: Reaso n for Exam Hyperlipidemia;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 Reason for Exam Gout Performed By: #### T SH3, LDLD, CMP, URIC, LIPID #### [facility] [address] [place] [address] [place] Bilirubin [Mass/Vol] 0.4 mg/dL Normal 0.3-1.0 [facility] Comment on above: Order Comment: Reaso n for Exam Hyperlipidemia;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 Reason for Exam Gout Performed By: #### T SH3, LDLD, CMP, URIC, LIPID #### [facility] [address] [place] [id number] [facility] Calcium [Mass/Vol] 8.8 mg/dL Normal 8.6-10.3 [facility] Comment on above: Order Comment: Reaso n for Exam Hyperlipidemia;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 Reason for Exam Gout Performed By: #### T SH3, LDLD, CMP, URIC, LIPID #### [facility] [address] Chloride [Moles/Vol] 99 mmol/L Normal 98-107 [facility] Comment on above: Order Comment: Reaso n for Exam Hyperlipidemia;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 Reason for Exam Gout Performed By: #### T SH3, LDLD, CMP, URIC, LIPID #### [facility] [address] [place] [address] [place] CO2 [Moles/Vol] 27.2 mmol/L Normal 21.0-31.0 [facility] Comment on above: Order Comment: Reaso n for Exam Hyperlipidemia;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 Reason for Exam Gout Performed By: #### T SH3, LDLD, CMP, URIC, LIPID #### [facility] [address] [place] [id number] [place] Creatinine [Mass/Vol] 1.84 mg/dL High 0.70-1.30 [facility] Comment on above: Order Comment: Reaso n for Exam Hyperlipidemia;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 Reason for Exam Gout Performed By: #### T SH3, LDLD, CMP, URIC, LIPID #### [facility] [address] [place] [id number] [place] GFR/1.73 sq M.predicted MDRD (S/P/Bld) [Vol rate/Area] 42.232 mL/min/{1.73_m2} Normal [facility] Comment on above: Order Comment: Reaso n for Exam Hyperlipidemia;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 Reason for Exam Gout Performed By: #### T SH3, LDLD, CMP, URIC, LIPID #### [facility] [address] Globulin (S) [Mass/Vol] 2.9 g/dL Normal [facility] Comment on above: Order Comment: Reaso n for Exam Hyperlipidemia;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 Reason for Exam Gout Performed By: #### T SH3, LDLD, CMP, URIC, LIPID #### [facility] [address] Glucose [Mass/Vol] 225 mg/dL High 70-100 [facility] Comment on above: Order Comment: Reaso n for Exam Hyperlipidemia;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 Reason for Exam Gout Result Comment: [facility] Glucose Reference Range is dependent on time and content of last meal. Glucose of more than 200 mg/dL in a nonstressed, ambulatory subject supports the diagnosis of Diabetes Mellitus. ADA recommended reference range Performed By: #### T SH3, LDLD, CMP, URIC, LIPID #### [facility] [address] Potassium [Moles/Vol] 4.3 mmol/L Normal 3.5-5.1 [facility] Comment on above: Order Comment: Reaso n for Exam Hyperlipidemia;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 Reason for Exam Gout Performed By: #### T SH3, LDLD, CMP, URIC, LIPID #### [facility] [address] Protein [Mass/Vol] 7.0 g/dL Normal 6.4-8.9 [facility] Comment on above: Order Comment: Reaso n for Exam Hyperlipidemia;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 Reason for Exam Gout Performed By: #### T SH3, LDLD, CMP, URIC, LIPID #### [facility] [address] Sodium [Moles/Vol] 136 mmol/L Normal 136-145 [facility] Comment on above: Order Comment: Reaso n for Exam Hyperlipidemia;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 Reason for Exam Gout Performed By: #### T SH3, LDLD, CMP, URIC, LIPID #### [facility] [address] [place] [address] [place] Urea nitrogen [Mass/Vol] 15 mg/dL Normal 12-27 [facility] Comment on above: Order Comment: Reaso n for Exam Hyperlipidemia;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 Reason for Exam Gout Performed By: #### T SH3, LDLD, CMP, URIC, LIPID #### [facility] [address] [place] [address] [place] Creatinine [Mass/volume] in Serum or PlasmaOrdered By: Jenaro Lynch on 09-27-2022 Creatinine [Mass/Vol] 1.84 mg/dL 0.70-1.30 [facility] Eosinophils Auto (Bld) [#/Vo l]Ordered By: Jenaro Lynch on 09-27-2022 Eosinophils (Bld) [#/Vol] 0.7 10*3/uL 0.0-0.45 [facility] Eosinophils/100 WBC Auto (Bl d)Ordered By: Jenaro Lynch on 09-27-2022 Eosinophils/100 WBC (Bld) 5.9 % . [facility] Erythrocyte distribution wid th Auto (RBC) [Ratio]Ordered By: Jenaro Lynch on 09-27-2022 Erythrocyte distribution width (RBC) [Ratio] 16.0 % 12.0-14.8 [facility] Globulin Calc (S) [Mass/Vol] Ordered By: Jenaro Lynch on 09-27-2022 Globulin (S) [Mass/Vol] 2.9 g/dL [facility] Glucose [Mass/volume] in Ser um or PlasmaOrdered By: Jenaro Lynch on 09-27-2022 Glucose [Mass/Vol] 225 mg/dL 70-100 [facility] Comment on above: ADA recommended refe rence rangeRandom Glucose Reference Range is dependent on time and content of last meal. Glucose of more than 200 mg/dL in a nonstressed, ambulatory subject supports the diagnosis of Diabetes Mellitus. Hematocrit Auto (Bld) [Volum e fraction]Ordered By: Jenaro Lynch on 09-27-2022 Hematocrit (Bld) [Volume fraction] 41.0 % 38.8-50.0 [facility] Hemoglobin [Mass/volume] in BloodOrdered By: Jenaro Lynch on 09-27-2022 Hemoglobin (Bld) [Mass/Vol] 13.2 g/dL 13.0-17.0 [facility] LDL Cholesterol Measuredon 0 09-27-2022 LDL Cholesterol Measured 38 mg/dL Normal 0-100 [facility] Comment on above: Order Comment: [...] #### T SH3, LDLD, CMP, URIC, LIPID ####[facility] [id number] Leukocytes [#/volume] correc jorge for nucleated erythrocytes in Blood by Automated counOrdered By: Jenaro Lynch on 09-27-2022 WBC corrected for nucl RBC Auto (Bld) [#/Vol] 12.4 10*3/uL 4.1-10.5 [facility] Lipid Panelon 09-27-2022 Cholesterol [Mass/Vol] 104 mg/dL Low 140-200 [facility] Comment on above: Order Comment: Reaso n for Exam Hyperlipidemia;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 Reason for Exam Gout Result Comment: Chol less than 200 mg/dl low risk Chol 201-239 mg/dl borderline risk Chol 240 mg/dl and greater high risk Performed By: #### T SH3, LDLD, CMP, URIC, LIPID #### [facility] [address] [place] [address] [place] Cholesterol in HDL [Mass/Vol] 21 mg/dL Low 29-71 [facility] Comment on above: Order Comment: Reaso n for Exam Hyperlipidemia;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 Reason for Exam Gout Result Comment: HDL CHOL ATP-III CLASSIFICATION Cardiovascular Risk HDL > or equal to 60 mg/dL LOW HDL < 40 mg/dL HIGH Performed By: #### T SH3, LDLD, CMP, URIC, LIPID #### [facility] [address] Cholesterol.total/Chol esterol in HDL [Mass ratio] 5.0 {ratio} Normal <5.0 [facility] Comment on above: Order Comment: Reaso n for Exam Hyperlipidemia;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 Reason for Exam Gout Performed By: #### T SH3, LDLD, CMP, URIC, LIPID #### [facility] [address] LDL Cholesterol,Calculated Not performed Normal 0-100 [facility] Comment on above: Order Comment: Reaso n for Exam Hyperlipidemia;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 Reason for Exam Gout Performed By: #### T SH3, LDLD, CMP, URIC, LIPID #### [facility] [address] Triglyceride w/Reflex 497 mg/dL High 0-149 [facility] Comment on above: Order Comment: Reaso [...] T SH3, LDLD, CMP, URIC, LIPID #### [facility] [address] VLDL CHOLESTEROL 99 mg/dL Normal [facility] Comment on above: Order Comment: Reaso n for Exam Hyperlipidemia;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 Reason for Exam Gout Performed By: #### T SH3, LDLD, CMP, URIC, LIPID #### [facility] [address] [place] [address] [place] Lymphocytes Auto (Bld) [#/Vo l]Ordered By: Jenaro Lynch on 09-27-2022 Lymphocytes (Bld) [#/Vol] 2.3 10*3/uL 1.00-4.8 [facility] Lymphocytes/100 WBC Auto (Bl d)Ordered By: Jenaro Lynch on 09-27-2022 Lymphocytes/100 WBC (Bld) 18.2 % . [facility] MCH Auto (RBC) [Entitic mass ]Ordered By: Jenaro Lynch on 09-27-2022 MCH (RBC) [Entitic mass] 23.9 pg 27.5-35.2 [facility] MCHC Auto (RBC) [Mass/Vol]Or dered By: Jenaro Lynch on 09-27-2022 MCHC (RBC) [Mass/Vol] 32.2 g/dL 32.5-35.6 [facility] MCV Auto (RBC) [Entitic vol] Ordered By: Jenaro Lynch on 09-27-2022 MCV (RBC) [Entitic vol] 74.3 fL 83.5-101 [facility] Monocytes Auto (Bld) [#/Vol] Ordered By: Jenaro Lynch on 09-27-2022 Monocytes (Bld) [#/Vol] 1.0 10*3/uL 0.0-0.8 [facility] Monocytes/100 WBC Auto (Bld) Ordered By: Jenaro Lynch on 09-27-2022 Monocytes/100 WBC (Bld) 7.9 % . [facility] Neutrophils Auto (Bld) [#/Vo l]Ordered By: Jenaro Lynch on 09-27-2022 Neutrophils (Bld) [#/Vol] 8.3 10*3/uL 1.8-7.7 [facility] Neutrophils/100 WBC Auto (Bl d)Ordered By: Jenaro Lynch on 09-27-2022 Neutrophils/100 WBC (Bld) 66.9 % . [facility] No Panel InformationOrdered By: Jenaro Lynch on 09-27-2022 Estimated GFR (CKD-EPI) 42.232 mL/Min [facility] Creatinine Clearance (Chem N/A [facility] Nucleated erythrocytes [Pres ence] in Blood by Automated countOrdered By: Jenaro Lynch on 09-27-2022 Nucleated RBC Auto Ql (Bld) 0.1 /100{WBC} 0-0.5 [facility] Platelet mean volume Auto (B ld) [Entitic vol]Ordered By: Jenaro Lynch on 09-27-2022 Platelet mean volume (Bld) [Entitic vol] 9.1 fL 6.6-10.1 [facility] Platelets Auto (Bld) [#/Vol] Ordered By: Jenaro Lynch on 09-27-2022 Platelets (Bld) [#/Vol] 209 10*3/uL 150-450 [facility] Potassium [Moles/volume] in Serum or PlasmaOrdered By: Jenaro Lynch on 09-27-2022 Potassium [Moles/Vol] 4.3 mmol/L 3.5-5.1 [facility] Protein [Mass/volume] in Ser um or PlasmaOrdered By: Jenaro Lynch on 09-27-2022 Protein [Mass/Vol] 7.0 g/dL 6.4-8.9 [facility] RBC Auto (Bld) [#/Vol]Ordere d By: Jenaro Lynch on 09-27-2022 RBC (Bld) [#/Vol] 5.52 10*6/uL 3.90-5.60 [facility] Serum or plasma albumin/glob ulin mass ratioOrdered By: Jenaro Lynch on 09-27-2022 Albumin/Globulin [Mass ratio] 1.4 {ratio} [facility] Serum or plasma anion gap de terminationOrdered By: Jenaro Lynch on 09-27-2022 Anion gap [Moles/Vol] 14.1 mmol/L 6.0-15.0 [facility] Serum or plasma high density lipoprotein (HDL) cholesterol measurementOrdered By: Jenaro Lynch on 09-27-2022 Cholesterol in HDL [Mass/Vol] 21 mg/dL 29-71 [facility] Comment on above: HDL CHOL ATP-III CLA SSIFICATION Cardiovascular RiskHDL > or equal to 60 mg/dL LOWHDL < 40 mg/dL HIGH Serum or plasma total choles terol/high density lipoprotein (HDL) cholesterol mass ratOrdered By: Jenaro Lynch on 09-27-2022 Cholesterol.total/Chol esterol in HDL [Mass ratio] 5.0 {ratio} <5.0 [facility] Sodium [Moles/volume] in Ser um or PlasmaOrdered By: Jenaro Lynch on 09-27-2022 Sodium [Moles/Vol] 136 mmol/L 136-145 [facility] Thyroid Stimulating Hormoneo n 09-27-2022 TSH Qn 3.62 m[IU]/L Normal 0.45-5.33 [facility] Comment on above: Order Comment: Reaso n for Exam Hyperlipidemia;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 Reason for Exam Gout Result Comment: PERF ORMED BY: [facility] [address] [place] [address] PATHOLOGIST [place] [place] CLIFFORD LOBATO M.D. Performed By: #### T SH3, LDLD, CMP, URIC, LIPID #### [facility] [address] Order Comment: Reaso n for Exam Hyperlipidemia;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 Reason for Exam Gout Performed By: #### T SH3, LDLD, CMP, URIC, LIPID ####[facility] [id number] Thyrotropin [Units/volume] i n Serum or PlasmaOrdered By: Jenaro Lynch on 09-27-2022 TSH Qn 3.62 m[IU]/L 0.45-5.33 [facility] Triglyceride [Mass/volume] i n Serum or PlasmaOrdered By: Jenaro Lynch on 09-27-2022 Triglyceride [Mass/Vol] 497 mg/dL 0-149 [facility] Comment on above: If the [...] on 09-27-2022 Urate [Mass/Vol] 6.2 mg/dL 2.4-7.6 [facility] Urea nitrogen [Mass/volume] in Serum or PlasmaOrdered By: Jenaro Lynch on 09-27-2022 Urea nitrogen [Mass/Vol] 15 mg/dL 12-27 [facility] Uric Acidon 09-27-2022 Urate [Mass/Vol] 6.2 mg/dL Normal 2.4-7.6 [facility] Comment on above: Order Comment: Reaso n for Exam Hyperlipidemia;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 Reason for Exam Gout Performed By: #### T SH3, LDLD, CMP, URIC, LIPID #### [address] WBC Auto (Bld) [#/Vol]Ordere d By: Jenaro Lynch on 09-27-2022 WBC (Bld) [#/Vol] 12.4 10*3/uL 4.1-10.5 [facility] MR head/brain wo conon 09-03 MR head/brain wo con [facility] [place] [address] [place] [address] MRI Report Signed Patient: Solomon Feldman SR MR#: [id number] : 1965 Acct:[id number] Age/Sex: 57 / M ADM Date: 09/02/22 Loc: MR Room: Type: [facility] Attending Dr: Shana Mclaughlin PA-C Copies to: [...] 09/03/22 0830 Signed By: 09/03/22 0837 Normal [facility] A1C HEMOGLOBINon 02-15-2022 HbA1c (Bld) [Mass fraction] % [employer] Other HbA1c (Bld) [Mass fraction]o n 02-15-2022 A1C HEMOGLOBIN [employer] Other Tobacco Screening.on 022 Adult depression screening assessment No -[facility] DO Work Phone: Tobacco use status [facility] b) No [facility] DO Work Phone: A1C HEMOGLOBINon 07-27-2021 HbA1c (Bld) [Mass fraction] 11.8 % [employer] Other HbA1c (Bld) [Mass fraction]o n 07-27-2021 A1C HEMOGLOBIN [employer] Other Vital Signs Date Time Vital Sign Value Performing Clinician Facility 07-12-2023 18:03-0500 Diastolic blood pressure 73 mm[Hg] DO Jenaor Jetts Work Phone: [facility] 07-12-2023 18:03-0500 Heart rate 76 /min DO Jenaro Jetts Work Phone: [facility] 07-12-2023 18:03-0500 Respiratory rate 20 /min DO Jenaro Kuns Work Phone: [facility] 07-12-2023 18:03-0500 SaO2% (BldA) [Mass fraction] 98 % DO Jenaro Kuns Work Phone: [facility] 07-12-2023 18:03-0500 Systolic blood pressure 125 mm[Hg] DO Jenaro Kuns Work Phone: [facility] 07-12-2023 16:15-0500 Body height 182.88 cm DO Jenaro Kuns Work Phone: [facility] 07-12-2023 16:15-0500 Body temperature 98.9 [degF] DO Jenaro Fraustojoe Work Phone: [facility] 07-12-2023 16:15-0500 Body weight 99.25 kg DO Jenarogorge Lynch Work Phone: [facility] 06-02-2023 10:56-0500 Blood Pressure Location Yeyo SILVESTRE [facility] 06-02-2023 10:56-0500 Body temperature 96.98 [degF] Yeyo SILVESTRE [facility] 06-02-2023 10:56-0500 Diastolic blood pressure 84 mm[Hg] Yeyo SILVESTRE [facility] 06-02-2023 10:56-0500 Heart rate 68 /min Yeyo SILVESTRE [facility] 06-02-2023 10:56-0500 Systolic blood pressure 124 mm[Hg] Yeyo SILVESTRE [facility] 04-06-2023 13:15-0400 Body height 180.34 cm Jenaro Lynch Other [employer] [facility] [employer] Other 04-06-2023 13:15-0400 Body mass index (BMI) [Ratio] 29.43 kg/m2 Jenaro Lynch Other [employer] Other 04-06-2023 13:15-0400 Body weight 95.71 kg Jenaro Lynch Other [employer] Other 04-06-2023 13:15-0400 Diastolic blood pressure 70 mm[Hg] Jenaro Lynch Other [employer] Other 04-06-2023 13:15-0400 Respiratory rate 18 /min Jenaro Lynch Other [employer] Other 04-06-2023 13:15-0400 SaO2% (BldA) [Mass fraction] 97 % Jenaro Lynch Other [employer] Other 04-06-2023 13:15-0400 Systolic blood pressure 100 mm[Hg] Jenaro Lynch Other [employer] Other 03-15-2023 08:30-0400 Body height 180.34 cm Jenaro Lynch Other [employer] Other 03-15-2023 08:30-0400 Body mass index (BMI) [Ratio] 29.01 kg/m2 Jenaro Syed Other [employer] Other 03-15-2023 08:30-0400 Body weight 94.35 kg Jenaro Syed Other [employer] Other 03-15-2023 08:30-0400 Diastolic blood pressure 62 mm[Hg] Jenaro Lynch Other [employer] Other 03-15-2023 08:30-0400 Respiratory rate 16 /min Jenaro Lynch Other [employer] Other 03-15-2023 08:30-0400 SaO2% (BldA) [Mass fraction] 97 % Jenaro Lynch Other [employer] Other 03-15-2023 08:30-0400 Systolic blood pressure 88 mm[Hg] Jenaro Lynch Other [facility] [employer] Other 02-15-2023 10:04-0400 Body height 182.88 cm Jenaro Lynch Work Phone: [facility] 250 DO Work Phone: 02-15-2023 10:04-0400 Body mass index (BMI) [Ratio] 28.62 kg/m2 Jenaro Lynch Work Phone: [facility] 250 DO Work Phone: 02-15-2023 10:04-0400 Body surface area Derived from formula 2.18 m2 Jenaro Lynch Work Phone: [facility] 250 DO Work Phone: 02-15-2023 10:04-0400 Body weight 95.71 kg Jenaro Lynch Work Phone: [facility] 250 DO Work Phone: 02-15-2023 10:04-0400 Diastolic blood pressure 70 mm[Hg] Jenaro Lynch Work Phone: [facility] 250 DO Work Phone: 02-15-2023 10:04-0400 Heart rate 76 /min Jenaro Lynch Work Phone: [facility] 250 DO Work Phone: 02-15-2023 10:04-0400 Systolic blood pressure 102 mm[Hg] Jenaro Lynch Work Phone: [facility] 250 DO Work Phone: 01-30-2023 10:23-0400 Blood Pressure Location Yeyo SILVESTRE [facility] 01-30-2023 10:23-0400 Diastolic blood pressure 74 mm[Hg] Yeyo SILVESTRE [facility] 01-30-2023 10:23-0400 Heart rate 68 /min Yeyo SILVESTRE [facility] 01-30-2023 10:23-0400 Respiratory rate 16 /min Yeyo SILVESTRE [facility] 01-30-2023 10:23-0400 Systolic blood pressure 130 mm[Hg] Yeyo SILVESTRE [facility] 01-11-2023 15:08-0400 Body height 180.34 cm Jenaro Lynch Work Phone: [facility] 600 DO Work Phone: 01-11-2023 15:08-0400 Body mass index (BMI) [Ratio] 30.13 kg/m2 Jenaro Lynch Work Phone: [facility] 600 DO Work Phone: 01-11-2023 15:08-0400 Body surface area Derived from formula 2.18 m2 Jenaro Lynch Work Phone: [facility] 600 DO Work Phone: 01-11-2023 15:08-0400 Body weight 97.98 kg Jenaro Lynch Work Phone: [facility] 600 DO Work Phone: 01-11-2023 15:08-0400 Diastolic blood pressure 86 mm[Hg] Jenaro Lynch Work Phone: [facility] 600 DO Work Phone: 01-11-2023 15:08-0400 Heart rate 74 /min Jenaro Lynch Work Phone: [facility] [employer] 600 DO Work Phone: 01-11-2023 15:08-0400 Systolic blood pressure 122 mm[Hg] Jenaro Lynch Work Phone: [facility] [employer] 600 DO Work Phone: 12-01-2022 12:45-0400 Body height 180.34 cm Jenaro Lynch Other [employer] Other 12-01-2022 12:45-0400 Body mass index (BMI) [Ratio] 29.73 kg/m2 Jenaro Lynch Other [employer] Other 12-01-2022 12:45-0400 Body weight 96.71 kg Jenaro Lynch Other [employer] Other 12-01-2022 12:45-0400 Diastolic blood pressure 70 mm[Hg] Jenaro Lynch Other [employer] Other 12-01-2022 12:45-0400 Respiratory rate 18 /min Jenaro Lynch Other [employer] Other 12-01-2022 12:45-0400 SaO2% (BldA) [Mass fraction] 94 % Jenaro Lynch Other [employer] Other 12-01-2022 12:45-0400 Systolic blood pressure 122 mm[Hg] Jenaro Lynch Other [employer] Other 11-23-2022 11:38-0400 Blood Pressure Location Yeyo SILVESTRE [facility] 11-23-2022 11:38-0400 Diastolic blood pressure 85 mm[Hg] Yeyo SILVESTRE [facility] 11-23-2022 11:38-0400 Heart rate 76 /min Yeyo SILVESTRE [facility] 11-23-2022 11:38-0400 Systolic blood pressure 130 mm[Hg] Yeyo SILVESTRE [facility] 07-04-2022 10:30-0500 Body height 180.34 cm Jenaro Lynch Other [employer] [facility] [employer] Other 07-04-2022 10:30-0500 Body mass index (BMI) [Ratio] 29.43 kg/m2 Jenaro Lynch Other [employer] Other 07-04-2022 10:30-0500 Body weight 95.71 kg Jenaro Lynch Other [employer] Other 07-04-2022 10:30-0500 Diastolic blood pressure 86 mm[Hg] Jenaro Lynch Other [employer] Other 07-04-2022 10:30-0500 Respiratory rate 16 /min Jenaro Lynch Other [employer] Other 07-04-2022 10:30-0500 Systolic blood pressure 146 mm[Hg] Jenaro Lynch Other [employer] Other 02-15-2022 13:45-0400 Body height 180.34 cm Jenaro Lynch Other [employer] Other 02-15-2022 13:45-0400 Body mass index (BMI) [Ratio] 30.12 kg/m2 Jenaro Lynch Other [employer] Other 02-15-2022 13:45-0400 Body weight 97.98 kg Jenaro Lynch Other [employer] Other 02-15-2022 13:45-0400 Diastolic blood pressure 62 mm[Hg] Jenaro Syed Other [employer] Other 02-15-2022 13:45-0400 Respiratory rate 16 /min Jenaro Lynch Other [employer] Other 02-15-2022 13:45-0400 SaO2% (BldA) [Mass fraction] 96 % Jenaro Lynch Other [employer] Other 02-15-2022 13:45-0400 Systolic blood pressure 100 mm[Hg] Jenaro Syed Other [employer] Other 10-26-2021 10:01-0400 Body height 180.34 cm Jenaro Guerra Syed Work Phone: [employer] 250 DO Work Phone: 10-26-2021 10:01-0400 Body mass index (BMI) [Ratio] 29.99 kg/m2 Jenaro Guerra Syed Work Phone: [employer] 250 DO Work Phone: 10-26-2021 10:01-0400 Body surface area Derived from formula 2.17 m2 Jenaro Fraustojoe Work Phone: [employer] 250 DO Work Phone: 10-26-2021 10:01-0400 Body weight 97.52 kg Jenaro Fraustojoe Work Phone: [facility] [employer] 250 DO Work Phone: 10-26-2021 10:01-0400 Diastolic blood pressure 70 mm[Hg] Jenarogorge Lynch Work Phone: [facility] 250 DO Work Phone: 10-26-2021 10:01-0400 Heart rate 68 /min Jenarogorge Lynch Work Phone: [facility] [employer] 250 DO Work Phone: 10-26-2021 10:01-0400 Systolic blood pressure 104 mm[Hg] Jenarogorge Lynch Work Phone: [facility] [employer] 250 DO Work Phone: 10-19-2021 12:20-0400 Body height 180.34 cm [employer] Other [employer] Other 10-19-2021 12:20-0400 Body mass index (BMI) [Ratio] 30.65 kg/m2 [employer] Other [employer] Other 10-19-2021 12:20-0400 Body temperature 96.8 [degF] [employer] Other [employer] Other 10-19-2021 12:20-0400 Body weight 99.7 kg [employer] Other [employer] Other 10-19-2021 12:20-0400 Diastolic blood pressure 71 mm[Hg] [employer] Other [employer] Other 10-19-2021 12:20-0400 Respiratory rate 18 /min [employer] Other [employer] Other 10-19-2021 12:20-0400 SaO2% (BldA) [Mass fraction] 98 % Amina Fagan Other [employer] Other 10-19-2021 12:20-0400 Systolic blood pressure 111 mm[Hg] Amina Fagan Other [employer] Other 07-27-2021 14:00-0500 Body height 180.34 cm Jenaro Lynch Other [employer] Other 07-27-2021 14:00-0500 Body mass index (BMI) [Ratio] 30.4 kg/m2 Jenaro Lynch Other [employer] Other 07-27-2021 14:00-0500 Body weight 98.88 kg Jenaro Lynch Other [employer] Other 07-27-2021 14:00-0500 Diastolic blood pressure 76 mm[Hg] Jenaro Lynch Other [employer] Other 07-27-2021 14:00-0500 Respiratory rate 18 /min Jenaro Lynch Other [employer] Other 07-27-2021 14:00-0500 SaO2% (BldA) [Mass fraction] 98 % Jenaro Lynch Other [employer] Other 07-27-2021 14:00-0500 Systolic blood pressure 112 mm[Hg] Jenaro Lynch Other [employer] Other Encounters Encounter Date Encounter Type Care Provider Facility Start: 09-08-2023 ambulatory Yeyo Ley ty:[facility] Start: 07-31-2023 ambulatory Shana Mclaughlin Facility:[facility] Start: 07-12-2023 End: 07-12-2023 Emergency department patient visit Jenaro Lynch Facility:[facility] Start: 07-12-2023 End: 07-12-2023 Emergency department patient visit DO Jenaro Lynch Work Phone: [facility] Work Phone: Start: 07-07-2023 End: 07-07-2023 ambulatory Jenaro Lynch Other [employer] Other Start: 07-07-2023 Telephone encounter Jenaro Syed [facility] Start: 07-03-2023 End: 07-04-2023 ambulatory Yeyo SILVESTRE Facility:[facility] Start: 06-26-2023 End: 06-26-2023 ambulatory Jenaro Lynch Other [employer] Other Start: 06-26-2023 Telephone encounter Jenaro Syed [facility] Start: 06-02-2023 End: 06-03-2023 ambulatory Yeyo SILVESTRE Facility:[facility] Start: 06-02-2023 End: 06-02-2023 Patient encounter procedure Yeyo SILVESTRE [facility] Start: 05-16-2023 End: 05-16-2023 ambulatory Jenaro Jettjoe Other [employer] Other Start: 05-16-2023 Telephone encounter Jenaro Lynch [facility] Start: 05-03-2023 End: 05-04-2023 ambulatory Yeyo SILVESTRE Facility:[facility] Start: 05-03-2023 End: 05-03-2023 Patient encounter procedure Yeyo SILVESTRE [facility] [place] Start: 04-28-2023 End: 04-28-2023 ambulatory Jenaro Fraustojoe Other [employer] Other Start: 04-28-2023 Telephone encounter Jenarogorge Lynch [facility] [place] Start: 04-18-2023 End: 04-19-2023 ambulatory Yeyo SILVESTRE Facility:[facility] Start: 04-18-2023 End: 04-18-2023 Patient encounter procedure Yeyo SILVESTRE [facility] [place] Start: 04-17-2023 ambulatory Yeyo Ruizi ty:[facility] [place] Start: 04-13-2023 End: 04-14-2023 ambulatory Yeyo SILVESTRE Facility:[id number] Start: 04-11-2023 End: 04-11-2023 ambulatory Jenaro Fraustojoe Other [employer] Other Start: 04-11-2023 Telephone encounter Jenaroogrge Lynch [facility] [place] Start: 04-06-2023 End: 04-06-2023 ambulatory Jenaro Jettjoe Other [employer] Other Start: 04-06-2023 Encounter for other preprocedural examination Jenaro Lynch [facility] [place] Start: 04-06-2023 Office outpatient vi sit 25 minutes Jenaro Lynch [facility] [place] Start: 03-28-2023 End: 03-28-2023 ambulatory Jenarogorge Lynch Other [employer] Other Start: 03-28-2023 Telephone encounter Jenarogorge Lynch [facility] [place] Start: 03-20-2023 ambulatory Yeyo SILVESTRE Facili ty:[facility] [place] Start: 03-16-2023 ambulatory Yeyo SILVESTRE Facili ty:[id number] Start: 03-15-2023 End: 03-15-2023 ambulatory Jenaro Lynch Other [employer] Other Start: 03-15-2023 Office outpatient vi sit 25 minutes Jenaro Lynch [facility] Start: 03-10-2023 End: 03-10-2023 ambulatory Jenaro Lynch Other [facility] [employer] Other Start: 03-10-2023 Telephone encounter Jenaro Lynch [facility] Start: 02-15-2023 Office outpatient vi sit 15 minutes Jenaro Lynch Work Phone: [facility] 250 DO Work Phone: Start: 02-15-2023 ambulatory Dolores Feldman Facility:[id number] Start: 02-14-2023 End: 02-15-2023 ambulatory Yeyo SILVESTRE Facility:[facility] Start: 02-14-2023 End: 02-14-2023 Patient encounter procedure Yeyo SILVESTRE [facility] Start: 02-08-2023 End: 02-09-2023 ambulatory Yeyo SILVESTRE Facility:[facility] Start: 02-08-2023 End: 02-08-2023 Patient encounter procedure Yeyo SILVESTRE [facility] Start: 01-30-2023 End: 01-31-2023 ambulatory Yeyo SILVESTRE Facility:[facility] Start: 01-30-2023 End: 01-30-2023 Patient encounter procedure Yeyo SILVESTRE [facility] Start: 01-25-[address] Jenaro Lynch Facility:[id number] Start: 01-17-2023 End: 01-17-2023 ambulatory Jenaro Lynch Other [facility] [employer] Other Start: 01-17-2023 Telephone encounter Jenaro Lynch [facility] [place] Start: 01-11-2023 Office outpatient vi sit 25 minutes Jenaro Lynch Work Phone: [facility] 600 DO Work Phone: Start: 01-11-2023 ambulatory Dolores Feldman Facility:[id number] Start: 12-28-2022 End: 12-29-2022 ambulatory Yeyoneel SILVESTRE Facility:[facility] Start: 12-28-2022 End: 12-28-2022 Patient encounter procedure Yeyo R SILVESTRE [facility] [place] Start: 12-21-2022 ambulatory Yeyo R SOLEDAD Facili ty:[facility] Start: 12-01-2022 End: 12-01-2022 ambulatory Jenaro Lynch Other [facility] [employer] Other Start: 12-01-2022 Office outpatient vi sit 25 minutes Jenaro Lynch [facility] Start: 11-30-2022 ambulatory Yeyo SOLEDAD Facility :[facility] Start: 11-23-2022 End: 11-24-2022 ambulatory Yeyo R SOLEDAD Facility:[facility] Start: 11-23-2022 End: 11-23-2022 Patient encounter procedure Yeyo R SOLEDAD [facility] [place] Start: 10-07-2022 End: 10-07-2022 ambulatory Jenaro Lynch Other [employer] Other Start: 10-07-2022 Telephone encounter Jenaro Lynch [facility] [place] Start: 09-27-2022 End: 09-27-2022 ambulatory Jenaro Lynch - [facility] Facility:[facility] Start: 09-27-2022 End: 09-27-2022 ambulatory DO Jenaro Lynch Work Phone: [facility] Work Phone: Start: 09-27-2022 End: 09-27-2022 Patient encounter procedure DO Jenaro Lynch Work Phone: [facility] [place] Work Phone: Start: 09-21-2022 End: 09-21-2022 ambulatory Jenaro Lynch Other [employer] Other Start: 09-21-2022 Telephone encounter Jenaro Lynch [facility] [place] Start: 09-14-2022 End: 09-14-2022 ambulatory Jenaro Lynch Other [employer] Other Start: 09-14-2022 Telephone encounter Jenaro Lynch [facility] [place] Start: 09-02-2022 End: 09-02-2022 ambulatory Shana Mclaughlin Facility:[facility] Start: 09-02-2022 End: 09-02-2022 Patient encounter procedure DO Jenaro Lynch Work Phone: [facility] [place] Work Phone: Start: 08-25-2022 End: 08-25-2022 ambulatory Doris Montserrat Other [employer] Other Start: 08-25-2022 Telephone encounter Doris Barnes [facility] Start: 08-22-2022 End: 08-22-2022 ambulatory Jenaro Lynch Other [employer] Other Start: 08-22-2022 Telephone encounter Jenaro Lynch [facility] [place] Start: 08-05-2022 End: 08-05-2022 ambulatory Jenaro Lynch Other [employer] Other Start: 08-05-2022 Telephone encounter Jenaro Lynch [facility] [place] Start: 08-04-2022 End: 08-04-2022 ambulatory Jenaro Lynch Other [employer] Other Start: 08-04-2022 Telephone encounter Jenaro Lynch [facility] [place] Start: 07-28-2022 End: 07-28-2022 ambulatory Jenaro Fraustojoe Other [employer] Other Start: 07-28-2022 Telephone encounter Jenaro Lynch [facility] Start: 07-25-2022 End: 07-25-2022 ambulatory Jenaro Lynch Other [employer] Other Start: 07-25-2022 Nursing evaluation o f patient and report Jenaro Lynch [facility] [place] Start: 07-19-2022 End: 07-19-2022 ambulatory Jenaro Lynch Other [employer] Other Start: 07-19-2022 Telephone encounter Jenaro Lynch [facility] [place] Start: 07-15-2022 End: 07-15-2022 ambulatory Jenaro Lynch Other [employer] Other Start: 07-15-2022 Telephone encounter Jenaro Lynch [facility] [place] Start: 07-13-2022 End: 07-13-2022 ambulatory Jenaro Lynch Other [employer] Other Start: 07-13-2022 Nursing evaluation o f patient and report Jenaro Lynch [facility] [place] Start: 07-12-[address] Raulito Kennedy II Facility: Start: 07-05-2022 End: 07-05-2022 ambulatory Jenaro Lynch Other [employer] Other Start: 07-05-2022 Telephone encounter Jenaro Lynch [facility] [place] Start: 07-05-2022 Rx Renewal Jenaro Lynch Work Phone: [facility] 250 DO Work Phone: Start: 07-04-2022 End: 07-04-2022 ambulatory Jenaro Lynch Other [employer] Other Start: 07-04-2022 Office outpatient vi sit 25 minutes Jenaro Lynch [facility] [place] Start: 06-30-2022 End: 06-30-2022 ambulatory Jenaro Lynch Other [employer] Other Start: 06-30-2022 Telephone encounter Jenaro Lynch [facility] [place] Start: 05-25-2022 End: 05-25-2022 ambulatory Jenaro Lynch Other [employer] Other Start: 05-25-2022 Telephone encounter Jenaro Lynch [facility] [place] Start: 04-25-2022 End: 04-25-2022 ambulatory Jenaro Lynch Other [employer] Other Start: 04-25-2022 Telephone encounter Jenaro Lynch [facility] [place] Start: 04-19-2022 End: 04-19-2022 ambulatory Jenaro Lynch Other [employer] Other Start: 04-19-2022 Telephone encounter Jenaro Lynch [facility] [place] Start: 03-22-2022 End: 03-22-2022 ambulatory Jenaro Lynch Other [employer] Other Start: 03-22-2022 Telephone encounter Jenaro Lynch [facility] [place] Start: 03-01-2022 End: 03-01-2022 ambulatory Jenaro Lynch Other [employer] Other Start: 03-01-2022 Telephone encounter Jenaro Lynch [facility] [place] Start: 02-18-2022 End: 02-18-2022 ambulatory Jenaro Lynch Other [employer] Other Start: 02-18-2022 Telephone encounter Jenaro Lynch [facility] [place] Start: 02-15-2022 End: 02-15-2022 ambulatory Verona Whaley Other [employer] Other Start: 02-15-2022 Office outpatient vi sit 25 minutes Jenaro Lynch [facility] [place] Start: 02-15-2022 Telephone encounter Verona Whaley [facility] Start: 01-21-2022 End: 01-21-2022 ambulatory Jenaro Lynch Other [employer] Other Start: 01-21-2022 Telephone encounter Jenaro Lynch [facility] [place] Start: 01-19-2022 End: 01-19-2022 ambulatory Jenaro Lynch Other [employer] Other Start: 01-19-2022 Telephone encounter Jenaro Lynch [facility] [place] Start: 01-13-2022 End: 01-13-2022 ambulatory Jenaro Lynch Other [employer] Other Start: 01-13-2022 Telephone encounter Jenaro Lynch [facility] [place] Start: 12-23-2021 End: 12-23-2021 ambulatory Jenaro Lynch Other [employer] Other Start: 12-23-2021 Telephone encounter Jenaro Lynch [facility] [place] Start: 11-24-2021 End: 11-24-2021 ambulatory Jenaro Lynch Other [employer] Other Start: 11-24-2021 Telephone encounter Jenaro Lynch [facility] [place] Start: 11-03-2021 Rx Renewal Jenaro Lynch Work Phone: [facility] 250 DO Work Phone: Start: 10-26-2021 Office outpatient vi sit 25 minutes Jenaro Lynch Work Phone: [facility] 250 DO Work Phone: Start: 10-25-2021 End: 10-25-2021 ambulatory Jenaro Lynch Other [employer] Other Start: 10-25-2021 Telephone encounter Jenaro Lynch [facility] [place] Start: 10-19-2021 End: 10-19-2021 ambulatory Azjuan Chavodariuss Other [employer] Other Start: 10-19-2021 Office outpatient vi sit 25 minutes Aziz Bakhous [facility] Start: 10-18-2021 End: 10-18-2021 ambulatory Aziz Bakhous Other [employer] Other Start: 10-18-2021 Telephone encounter Aziz Bakhous [facility] Start: 10-12-2021 End: 10-13-2021 ambulatory DUARTE HENRY . Facility: Start: 10-08-2021 End: 10-08-2021 ambulatory Jenaro Lynch Other [employer] Other Start: 10-08-2021 Telephone encounter Jenaro Lynch [facility] [place] Start: 09-22-2021 End: 09-22-2021 ambulatory Jenaro Lynch Other [employer] Other Start: 09-22-2021 Telephone encounter Jenaro Lynch [facility] [place] Start: 09-21-2021 End: 09-21-2021 ambulatory Jenaro Lynch Other [employer] Other Start: 09-21-2021 Telephone encounter Jenaro Lynch [facility] [place] Start: 08-09-2021 End: 08-09-2021 ambulatory Jenaro Lynch Other [employer] Other Start: 08-09-2021 Telephone encounter Jenaro Lynch [facility] [place] Start: 08-02-2021 End: 08-02-2021 ambulatory Jenaro Lynch Other [employer] Other Start: 08-02-2021 Telephone encounter Jenaro Lynch [facility] [place] Start: 07-27-2021 End: 07-27-2021 ambulatory Jenaro Lynch Other [employer] Other Start: 07-27-2021 Office outpatient vi sit 25 minutes Jenaro Lynch [facility] [place] Start: 06-23-2021 End: 06-23-2021 ambulatory Jenaro Lynch Other [employer] Other Start: 06-23-2021 Telephone encounter Jenaro Lynch [facility] Start: 06-22-2021 Rx Renewal Jenaro Lynch Work Phone: [place] [address] DO Work Phone: Start: 05-03-2021 End: 05-03-2021 ambulatory Jenaro Lynch Other [employer] Other Start: 05-03-2021 Telephone encounter Jenaro Lynch [facility] [place] Procedures Date Procedure Procedure Detail Performing Clinician [...] Raulito Kennedy, Status: Umer, Time: 2:[address] [facility] 250 DO Work Phone: Start: 07-12-2023 Duplex scan of lower limb veins US venous duplex LE BI [facility] Start: 07-12-2023 US Lower extremity v ein - bilateral [facility] Start: 07-12-2023 Duplex scan veins of upper limb US venous duplex UE LT [facility] Start: 07-12-2023 US Upper extremity v ein - left [facility] Start: 02-15-2023 FUV, Provider: Dolores Velazquez, Status: Pen, Time: 10:00 AM FUV, Provider: Dolores Velazquez, Status: Pen, Time: 10:00 AM -[facility] 600 DO Work Phone: Start: 01-25-2023 STRESS NUC, Provider : CHARISSE HHVI NUCLEAR 01,[id number], Status: Pen, Time: 8:30 AM STRESS NUC, Provider: CHARISSE HHVI NUCLEAR 01,[id number], Status: Pen, Time: 8:30 AM -[facility] 600 DO Work Phone: Start: 07-12-2022 FUV, Provider: Raulito Kennedy, Status: Pen, Time: 9:20 AM FUV, Provider: Raulito Kennedy, Status: Pen, Time: 9:20 AM -[facility] 250 DO Work Phone: Start: 10-26-2021 FUV, Provider: Raulito Kennedy, Status: Pen, Time: 9:30 AM FUV, Provider: Raulito Kennedy, Status: Pen, Time: 9:30 AM -[facility] 250 DO Work Phone: Patient Education Dependent Edema (DC) [facility] Work Phone: Patient referral [facility] Work Phone: Immunizations Immunization Date Immunization Notes Care Provider Sachin pettit 11-13-2020 Pfizer-BioNTech COVID-19 Vacc 30 MCG/0.3ML Intramuscular Suspension Jenaro Lynch Work Phone: [facility] 10-23-2020 Pfizer-BioNTech COVID-19 Vacc 30 MCG/0.3ML Intramuscular Suspension Jenaro Lynch Work Phone: [facility] 01-14-2019 influenza, seasonal, injectable Jenaro Lynch Other [employer] Other 01-14-2019 influenza virus vaccine, unspecified formulation Yeyo SILVESTRE [facility] 04-02-2018 influenza virus vaccine, unspecified formulation Yeyo SILVESTRE [facility] 04-02-2018 influenza, injectabl e, quadrivalent, preservative free DO Jenaro Lynch Work Phone: [facility] 03-05-2018 influenza virus vaccine, unspecified formulation Jenaro Lynch Work Phone: [facility] 250 DO Work Phone: 03-05-2018 pneumococcal polysaccharide vaccine, 23 valent Jenaro P Syed Work Phone: [facility] 250 DO Work Phone: 03-07-2016 influenza virus vaccine, unspecified formulation Yyeo SILVESTRE [facility] 03-07-2016 influenza, injectabl e, quadrivalent, preservative free Jenaro Lynch Work Phone: [facility] 600 DO Work Phone: 02-22-2016 pneumococcal polysaccharide vaccine, 23 valent Jenaro P Kuns Work Phone: [facility] Payers Date Payer Category Payer Self-pay [id number] 2022 Medicaid [id number] 1965 Unknown [id number] 2.16.84 0.1.397031.3.579.2.593 1965 Unknown [id number] 2.16.8 40.1.101617.3.579.2.1068 1965 Unknown [id number] 2.16. 840.1.802227.3.579.2.356 1965 Unknown [id number] 2.16. 840.1.886239.3.579.2.356 1965 Unknown [id number] 2.16. 840.1.724526.3.579.2.356 1965 Unknown [id number] 2.16.8 40.1.192879.3.579.2. 1965 Unknown [id number] 2.16.8 40.1.338420.3.579.2. 1965 Unknown [id number] 2.16.8 40.1.094955.3.579.2. 1965 Unknown [id number] 2.16.8 40.1.225390.3.579.2 1965 Unknown [id number] 2.16.8 40.1.007249.3.579.2. 1965 Unknown [id number] 2.16.8 40.1.683458.3.579.2. 1965 Unknown [id number] 2.16.8 40.1.374572.3.579.2. 1965 Unknown [id number] 2.16.8 40.1.184288.3.579.2.72 1965 Unknown [id number] 2.16.8 40.1.803174.3.579.2. 1965 Unknown [id number] 2.16.8 40.1.838622.3.579.2.72 1965 Unknown [id number] 2.16.8 40.1.452038.3.579.2. 1965 Unknown [id number] 2.16.8 40.1.248966.3.579.2. 1965 Unknown [id number] 2.16.8 40.1.981063.3.579.2 1965 Unknown [id number] 2.16.8 40.1.818161.3.579.2.727 1965 Unknown [id number] 2.16.8 40.1.604863.3.579.2.727 1959 Unknown [id number] 2.1 6.840.1.654785.19 Unknown [employer] Unknown [id number] 2.16.8 40.1.369252.3.579.2.531 Unknown [id number] 2.16.8 40.1.751105.3.579.2.531 Unknown [id number] 2.16.8 40.1.630777.3.579.2.531 Unknown [id number] 2.16.8 40.1.869023.3.579.2.531 Social History Date Type Detail Facility Caffeine use Caffeine use [employer] Other Comment on above: 2 cups coffee, 4-6 c ups tea daily, occaional soda; qauit 07/2020; Sex Assigned At [facility] Start: 07-14-2020 End: 07-12-2023 Tobacco smoking status NHIS Smoker (finding) [facility] Start: 1965 Sex Assigned At Male F [facility] Start: 11-23-2022 End: 06-02-2023 Tobacco smoking status Heavy tobacco smoker (finding) [facility] Tobacco smoking status Never [facility] Medical Equipment Procedure Code Equipment Code Equipment Origin al Text Equipment Identifier Dates Aortogram, abdominal, with bilateral lower extremity runoff IR STENT SMART 10 X 80 120 CM FDA Start: 09-27-2018 Aortogram, abdominal, with bilateral lower extremity runoff IR STENT SMART 10 X 80 120 CM FDA Start: 09-27-2018 Start: 12-16-2013 Bare-metal bilia ry stentMultiple peripheral artery stent, bare-metal ([id number] FDA Start: 07-14-2020 Functional Status Date Assessment Result Facility 06-02-2023 Functional Status N/A [facility] 02-14-2023 Functional Status N/A [facility] 01-30-2023 Functional Status N/A [facility] 11-23-2022 Functional Status N/A [facility] Clinical Notes 06-23-2021 to 06-26-2023 Note Date & Type Note Facility 06-26-2023 Evaluation note Encounter Date Diagnosis Assessment Notes Jun, Hyperlipidemia (ICD-10 - E78.5) [employer] Other [id number] Hospital Discharge instructions Patient Education 06/02/2023 11:57:43 [...] urethra. Follow these instructions at home: Take [id number] and prescription medicines only as told by [...] Document Reviewed: 12/08/2021 Elsevier Patient Education 2022 [employer] Follow Up Care 06/01/2023 14:05:36 With:SOLEDAD HERRERA, Yeyo Blum, URL Address: [address] [place] [address]- When: Unknown [facility] 12-12-2023 Evaluation note* Encounter Date Diagnosis Assessment Notes Treatment Notes Treatment Clinical Notes May, 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) [employer] Other 11-24-2023 Evaluation note* Encounter Date Diagnosis Assessment Notes Treatment Notes Treatment Clinical Notes Apr, Diabetic nephropathy (ICD-10 - E11.21) [employer] Other 11-07-2023 Evaluation note* Encounter Date Diagnosis Assessment Notes Treatment Notes Treatment Clinical Notes Apr, Left arm pain (ICD-10 - M79.602) [employer] Other 11-02-2023 Evaluation note* Encounter Date Diagnosis [...] and to have his surgery as scheduled. 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 He was found to have developed the [...] to continue to montior this at home. [employer] Other 10-09-2023 Note [id number]23 [id number]:127[facility]09-12-2023 Note [id number]:127[facility] 02-14-2023 Hospital Discharge instructions Patient Education 02/14/2023 [...] including vitamins, herbs, eye drops, creams, and uvpk-vqn-obrqlpk medicines. Any problems you or family members [...] provider tells you to take them. Taking pdcp-afv-bximtea medicines, vitamins, herbs, and supplements. Surgery safety [...] provider. Document Revised: 02/15/2022 Document Reviewed: 02/15/2022 [employer] Patient Education 2022 [employer]. [facility]08-28-2023 Hospital Discharge instructions Patient Education 01/30/2023 [...] including vitamins, herbs, eye drops, creams, and wyzy-bpv-vvfejuc medicines. ?Whether you are or may be [...] provider. Document Revised: 02/02/2022 Document Reviewed: 12/25/2020 [employer] Patient Education 2022 [employer]. 01/30/2023 11:22:30 Cystoscopy Cystoscopy Cystoscopy is a [...] including vitamins, herbs, eye drops, creams, and bzoq-vwq-genoqdt medicines. Any problems you or family members [...] provider tells you to take them. Taking tscn-opq-mczamfd medicines, vitamins, herbs, and supplements. Tests You [...] Follow these instructions at home: Medicines Take ogvt-edx-hzzebbi and prescription medicines only as told by [...] provider. Document Revised: 02/02/2022 Document Reviewed: 01/01/2021 [employer] Patient Education 2022 [employer]. Follow Up Care 11/23/2022 13:02:56 With:SOLEDAD HERRERA, Yeyo Blum, URL Address: [facility] [address] , [place] [phone] When: Unknown Comments:sched cysto/uros [facility] 08-15-2023 Evaluation note* Encounter Date Diagnosis Assessment Notes Treatment Notes Treatment Clinical Notes Jan, Diabetic nephropathy (ICD-10 - E11.21) [employer] Other 06-29-2023 Evaluation note* Encounter Date Diagnosis [...] reviewed. Nov, 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) Encouraged patient to follow with Cardiology as scheduled. [employer] Other 06-21-2023 Hospital Discharge instructions Patient Education [...] provider. Document Revised: 08/11/2021 Document Reviewed: 05/07/2021 [employer] Patient Education 2021 [employer]. Follow Up Care 09/14/2022 14:23:26 With:SOLEDAD HERRERA, Yeyo Blum, URL Address: [facility] [address] , [place] [address]- When: Unknown [facility] [place] 05-05-2023 Evaluation note* Encounter Date Diagnosis Assessment Notes Treatment Notes Treatment Clinical Notes October, Erectile dysfunction, unspecified erectile dysfunction type (ICD-10 - N52.9) [employer] Other 04-19-2023 Evaluation note* Encounter Date Diagnosis Assessment Notes Treatment Notes Treatment Clinical Notes Sep, 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) [employer] Other 04-12-2023 Evaluation note* Encounter Date Diagnosis Assessment Notes Treatment Notes Treatment Clinical Notes Sep, 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) Sep, 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) [employer] Other 03-20-2023 Evaluation note* Encounter Date Diagnosis Assessment Notes Treatment Notes Treatment Clinical Notes Aug, Diabetic nephropathy (ICD-10 - E11.21) [employer] Other 03-03-2023 Evaluation note* Encounter Date Diagnosis Assessment Notes Treatment Notes Treatment Clinical Notes Aug, Pain in right leg (ICD-10 - M79.604) [employer] Other 03-02-2023 Evaluation note* Encounter Date Diagnosis Assessment Notes Treatment Notes Treatment Clinical Notes Aug, Pain in right leg (ICD-10 - M79.604) [employer] Other 02-20-2023 Evaluation note* Encounter Date Diagnosis Assessment Notes Treatment Notes Treatment Clinical Notes Jul, Intractable episodic headache, unspecified headache type (ICD-10 - R51.9) [employer] Other 02-14-2023 Evaluation note* Encounter Date Diagnosis Assessment Notes Treatment Notes Treatment Clinical Notes Jul, Acute intractable headache, unspecified headache type (ICD-10 - R51.9) [employer] Other 02-08-2023 Evaluation note* Encounter Date Diagnosis Assessment Notes Treatment Notes Treatment Clinical Notes Jul, Headache (ICD-10 - R51.9) [employer] Other 01-30-2023 Evaluation note* Encounter Date Diagnosis [...] medication and we will continue to monitor. [employer] Other 12-21-2022 Evaluation note* Encounter Date Diagnosis Assessment Notes Treatment Notes Treatment Clinical Notes May, Diabetic nephropathy (ICD-10 - E11.21) [employer] Other 11-21-2022 Evaluation note* Encounter Date Diagnosis Assessment Notes Treatment Notes Treatment Clinical Notes Apr, Diabetic nephropathy (ICD-10 - E11.21) [employer] Other 11-15-2022 Evaluation note* Encounter Date Diagnosis Assessment Notes Treatment Notes Treatment Clinical Notes Apr, Pain in right leg (ICD-10 - M79.604) [employer] Other 10-18-2022 Evaluation note* Encounter Date Diagnosis Assessment Notes Treatment Notes Treatment Clinical Notes Mar, Diabetic nephropathy (ICD-10 - E11.21) [employer] Other 09-13-2022 Evaluation note* Encounter Date Diagnosis Assessment Notes Treatment Notes Treatment Clinical Notes Feb, Hypertensive chronic kidney disease with stage 1 through stage 4 chronic kidney disease, or unspecified chronic kidney disease (ICD-10 - I12.9) [employer] Other 09-13-2022 Evaluation note* Encounter Date Diagnosis [...] scheduled. 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 Feb, Pain in right [...] Noted upon review of blood work results. [employer] Other 08-19-2022 Evaluation note* Encounter Date Diagnosis Assessment Notes Treatment Notes Treatment Clinical Notes Jan, Diabetic nephropathy (ICD-10 - E11.21) [employer] Other 08-17-2022 Evaluation note* Encounter Date Diagnosis Assessment Notes Treatment Notes Treatment Clinical Notes Jan, Diabetic nephropathy (ICD-10 - E11.21) [employer] Other 07-21-2022 Evaluation note* Encounter Date Diagnosis Assessment Notes Treatment Notes Treatment Clinical Notes Dec, Diabetic nephropathy (ICD-10 - E11.21) [employer] Other 06-22-2022 Evaluation note* Encounter Date Diagnosis Assessment Notes Treatment Notes Treatment Clinical Notes Nov, Diabetic nephropathy (ICD-10 - E11.21) [employer] Other 05-23-2022 Evaluation note* Encounter Date Diagnosis Assessment Notes Treatment Notes Treatment Clinical Notes October, Diabetic nephropathy (ICD-10 - E11.21) [employer] Other 05-17-2022 Evaluation note* Encounter Date Diagnosis [...] E11.59) October, 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 Kennedy. For this October, Other He did quit smoking since July 2020 [employer] Other 05-16-2022 Evaluation note* Encounter Date Diagnosis Assessment Notes Treatment Notes Treatment Clinical Notes October, Hypertensive chronic kidney disease with stage 1 through stage 4 chronic kidney disease, or unspecified chronic kidney disease (ICD-10 - I12.9) October, Stage 3 chronic kidney disease, unspecified whether stage 3a or 3b CKD (ICD-10 - N18.30) [employer] Other 05-06-2022 Evaluation note* Encounter Date Diagnosis Assessment Notes Treatment Notes Treatment Clinical Notes October, Pain in right leg (ICD-10 - M79.604) October, Pain in left leg (ICD-10 - M79.605) [employer] Other 04-20-2022 Evaluation note* Encounter Date Diagnosis Assessment Notes Treatment Notes Treatment Clinical Notes Sep, Diabetic nephropathy (ICD-10 - E11.21) [employer] Other 04-19-2022 Evaluation note* Encounter Date Diagnosis Assessment Notes Treatment Notes Treatment Clinical Notes Sep, Anxiety (ICD-10 - F41.9) Sep, Hypertensive chronic kidney disease with stage 1 through stage 4 chronic kidney disease, or unspecified chronic kidney disease (ICD-10 - I12.9) [employer] Other 03-07-2022 Evaluation note* Encounter Date Diagnosis Assessment Notes Treatment Notes Treatment Clinical Notes Aug, Anxiety (ICD-10 - F41.9) [employer] Other 02-22-2022 Evaluation note* Encounter Date Diagnosis [...] 12 pound weight loss from last visit. [employer] Other [id number] Evaluation note* Encounter Date Diagnosis Assessment Notes Treatment Notes Treatment Clinical Notes Jun, Diabetic nephropathy (ICD-10 - E11.21) [employer] Other Evaluation + Plan note Future Appointments Appointment Date:12/21/2022 11:00:00 AM Scheduled Provider: Location:[facility] Appointment Type:URO Nurse Visit Appointment Date:01/30/2023 10:30:00 AM Scheduled Provider:Yeyo SILVESTRE MD Location:[facility] [place] Appointment Type:URO Office Visit [facility] [place] Evaluation + Plan note Future Appointments Appointment Date:01/30/2023 10:15:00 AM Scheduled Provider:Yeyo SILVESTRE MD Location:[facility] Appointment Type:URO Office Visit [facility] Evaluation + Plan note Future Appointments Appointment Date:02/01/2023 10:00:00 AM Scheduled Provider: Location:[facility] Appointment Type:Urology CALL PAT FT Appointment Date:02/08/2023 09:00:00 AM Scheduled Provider: Location:[facility] Appointment Type:Urology FT Appointment Date:02/14/2023 09:15:00 AM Scheduled Provider: Location:[facility] Appointment Type:Urology FT [facility] evaluation + Plan note Future Appointments Appointment Date:02/14/2023 09:15:00 AM Scheduled Provider: Location:[facility] Future Appointments Appointment Date:03/20/2023 08:45:00 AM Scheduled Provider: Location:[facility] Appointment Type:URO Nurse Visit Appointment Date:04/05/2023 08:00:00 AM Scheduled Provider:Yeyo SILVESTRE MD Location:[facility] App[facility]ment [facility] Future Appointments Appointment Date:05/03/2023 08:45:00 AM Scheduled Provider:Yeyo SILVESTRE MD Location:[facility] Appointment Type:URO Office Visit [facility] Evaluation + Plan note Future Appointments Appointment Date:07/03/2023 10:15:00 AM Scheduled Provider:[facility]RE [facility] Office Visit [facility] evaluation noteNo InformationNort Diagnoplex Other evaluation noteNo assessment information available [facility] Work Phone: History general Narrative - Reported* [...] hydrocele repair 08/2016 Surgical History cardiac cath [facility] 04/02/18 Surgical History Lt LE iliac DSA, angioplasty & stenting 09/27/2018 Surgical History Left Angiogram with one stent - Dr. Boss 07/2020 Hospitalization History Deep Depression, Anxiety; [facility] 11-11-[address] [facility] hypoxemia and hyper capnic respirtory failure 11/11/16 Hospitalization History chest pain [facility] 04/02/18 [employer] [employer] Other History of Present illness NarrativeReturns in [...] impact on blood pressure and diabetes were reviewed-[facility] 250 DO Work Phone: History of [...] medication regimen. He denies medication side effects. [facility] 600 DO Work Phone: History [...] medication regimen. [facility] Narrative No data available for this section [facility] Discharge instructions No data available for this section [facility] [employer] Progress note No data available for this section [facility] Chief Complaint SOLOMON FELDMAN is being seen [...] adache, unspecified headache type (R51.9) Referral Organization [facility] Referring Provider First Name Jenaro Referring Provider Last Name Syed Referring Provider Specialty Family Prac dale Referred Organization [facility] Referred Provider Lyssa Sharpe Referred Address [address] [place], [place],[address] Referred Provider Specialty Neurology Referral Priority Routine [...] 07/28/2022 10:23:53 AM >Spoke with Marilynn hurley [facility] and patient has been scheduled and cancelled the appt for 07/26/22 [facility] 07/28/2022 10:27:39 AM >Telephone encounter was sent Reason 03/31/22 @ 2:45pm consult and treat Diagnosis 1 Type 2 diabetes bobby itus with circulatory disorder (E11.59) Referral Organization [facility] Referring Provider First Name Jenaro Referring Provider Last Name Syed Referring Provider Specialty [facility] dale Referred Organization [facility] Referred Provider Doris Barnes Referred Address [address],[place], [place],[address] Referred Provider Specialty Nurse Jono calderon Referral [...] this at the same time, * Needs [id number] to sendRefills-bpk to send rxrefil - bpk to send rxLAB ORDERSRENAL 6 month Follow uprefillrefillclinicalRefills-bpk to send rxlyrica rx printedDM ReferralClinicaldiscuss PSA resultsclinicalClinicalRefills-bpk to send rxrefillrefill- BPK to send rxRefills-bpk to send rxClinicalheadachesClinicaltoradol shottoradol shotclinicaltoradol per bpkNeurology Referral UpdateRefills-bpk to send rxrefillRefillDM Referral UpdaterefillRefillsRefillsTKM CancelledMED CHECKbpk to send ffayyclzpgw4q check/hospital f/u-bellevueRefillsR/S surgical clearanceclinicalrefillrefillrefillClinical Care Teams (unrecognized sec tion and content) Team Status: Active Member Role Status Dates Jenaro Lynch DO Primary Care Provider Active Team Status: Inactive Member Role Status Dates Jenaro Lynch DO Primary Care Provider Active Shana Mclaughlin PA-C Attending Provider Active Team Status: Inactive Member Role Status Dates Jenaro Lynch DO Primary Care Provider Active Jenaro Lynch DO [facility] Attending Provider Active Team Status: Inactive [...] and content) DATE CREATED AUTHOR 11/11/2022 [facility] DATE CREATED AUTHOR AUTHOR'S ORGANIZ ATION [facility]20[facility] DATE CREATED AUTHOR AUTHOR'S ORGANIZ ATION 02/16/2023 [facility] DATE CREATED AUTHOR AUTHOR'S ORGANIZ ATION 02/16/2023 [employer] DATE CREATED AUTHOR AUTHOR'S ORGANIZ ATION 07/14/2023 [employer] [facility] DATE CREATED AUTHOR AUTHOR'S ORGANIZ ATION 08/08/2023 [facility] FOR RECORDS PERTAINING TO PATIENTS WHO ARE [...] BE BASED ON THE PRIMARY CLINICAL RECORDS. [employer] provides no warranty or guarantee of the accuracy or completeness of information in this document.
== END 2023-08-25 11:48 | disposition home or self-care (01) ==
LOC: WC 11:47
PROVIDERS: PCP Family Medicine; Visit Provider Podiatrist Foot & Ankle Surgery
DX: E11.621 Type 2 diabetes mellitus with foot ulcer (principal); L97.415 Non-pressure chronic ulcer of right heel and midfoot with muscle involvement without evidence of necrosis
CPT/HCPCS: G0463

== ENCOUNTER 2023-08-29 09:54 | Outpatient (OUT) | payer OTHER, SELFPAY ==
--- OUTSIDE RECORDS SUMMARY | 2023-08-29 09:58 | XMS_ITS | CCD ---
Author Organization [facility] Care Team Providers Care Implementation Specialist Name Role Phone Jenaro Lynch Unavailable Unavailable Unavailable Jenaro Lynch Unavailable Chavoolivier Norrisjuan Unavailable Judd Verona Unavailable Doris Barnes Unavailable DO Jenaro Lynch Primary Care Provider [phone] JERARDO Mclaughlin Attending Provider DO Jenaro Lynch Attending Provider [phone] ELAINE .DUARTE Attending Unavailable ELAINE Hernandez DUARTE [...] Care Provider MD Nancy Chaudhari Emergency Provider [phone] Yeyo SILVESTRE Attending Unavailable SILVESTRE, Yeyo R [...] Eruption of skin (disorder) [facility] (17 sources) Penicillins; 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: [Penicillins] Allergy to drug (finding) 07-14-19 21 Anaphylactoid reaction (disorder) [facility] (20 sources) Acetaminophen / oxyCODONE Drug Allergy vomiting [facility] [employer] Other (20 sources) tamsulosin Drug Allergy 07-14-19 21 hives [facility] (20 sources) PENICIILIN Propensity to adverse reactions SWELLING [employer]WAY [facility] [employer] Other (3 sources) Acetaminophen; 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: [acetaminophen] Drug Allergy 07-14-19 21 Vomiting [facility] (4 sources) oxyCODONE; 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: [Oxycodone] Drug Allergy 02-08-20 17 Vomiting [facility] (1 source) Penicillins Drug allergy (disorder) 09-23-19 14 [facility] (9 sources) Penicillin G; 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: [penicillin G benzathine] Drug Allergy [facility] (8 sources) Penicillin Drug Allergy anaphylaxis [employer] Other (1 source) Penicillins Drug allergy (disorder) 07-31-19 [facility] (1 source) tamsulosin Drug Allergy 07-31-19 [facility] Medications Current Medications Medication Drug Class(es) [...] 12:00am July 14, 2020 11:39am Start: 10-10-2014 [place] 325 mg-5 mg oral tablet 1 tab(s), [...] BID, # 60 cap(s), Refills(s) 3, Pharmacy: [facility]/pharmacy #[id number], 182, cm, 02/14/23 8:58:00 EDT, Height/Length Dosing, 94, kg, 01/30/23 10:24:00 EDT, Weight Dosing Start Date: 02/14/23 Status: Ordered take 1 capsule by [facility] once daily Tamsulosin HCl - 0.4 MG Oral Capsule TAKE 1 CAPSULE Daily Quantity: 0 Refills: 0 Ordered: 15-Feb-2023 DO [facility] (20 sources) Start: 01-27-2014 Start: 01-27-2014 [facility] as d irected Use as directed. Jan, Active Tiotropium [place] (Spiriva With Handihaler) 18 mcg capsule, w/inhalation device (1 source) Start: 07-12-2023 take 1 capsule by inhalation once daily Tiotropium [place] (Spiriva With Handihaler) 18 mcg capsule, w/inhalation [...] Ordered Start: 07-04-2022 take 1 tablet by [facility] every twelve hours tiZANidine HCl 4 MG 1 tablet as needed Orally Twice a day Jun, Active take 2 tablets by [facility] at bedtime tiZANidine HCl - 4 [...] procedure, # 2 cap(s), Refills(s) 0, Pharmacy: [facility]/pharmacy #[id number], 182, cm, 01/30/23 10:24:00 EDT, [...] take 1 tablet by mouth once daily Olmesartan-Comstock chlorothiazide (Benicar Hct) 40-12.5 mg Tablet Discontinued [...] [Coronary atherosclerosis of unspecified type of vessel, jamul or graft] Onset: 2 Resolved: 2 Chronic [...] sources) Long-term current use of insulin; 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] Episodic Other and [...] LE BIon US venous duplex LE BI [facility] Main [facility] [address] [place] [address] Ultrasound Report Signed Patient: Solomon Feldman MR#: [id number] : 1965 Acct:[id number] Age/Sex: 57 / M ADM Date: 07/12/23 Loc: ER Room: Type: [facility] ER Attending Dr: Ordering Provider: [...] Howard Boss MD07/13/2023 11:56 AM Dictation Location: [place] [address] Tech: Nancy Pantoja Transcribed By: BOB 07/13/23 115 Dictated By: Howard Boss MD 07/13/23 1156 Signed By: 07/13/23 115 [facility] US venous duplex UE LTon US venous duplex UE LT [facility] [address] Ultrasound Report Signed Patient: Solomon Feldman SR MR#: [id number] : 1965 Acct:[id number] Age/Sex: 57 / M ADM Date: 07/12/23 Loc: ER Room: Type: [facility] ER Attending Dr: Ordering Provider: [...] Howard Boss MD07/13/2023 11:56 AM Dictation Location: [place] [address] Tech: Nancy Pantoja Transcribed By: BOB 07/13/23 1156 Dictated By: Howard Boss MD 07/13/23 1155 Signed By: 07/13/23 115 [facility] Activated partial thrombopla stin time (aPTT) in platelet poor plasma by coagulation aOrdered By: Nancy Chaudhari on 07-12-2023 aPTT Coag (PPP) [Time] 29.4 s 25.1-36.5 [facility] Comment on above: A hematocrit value g reater than 55% may lead to inaccurate results in coagulation testing. Patients having hematocrit values >55% require a special collection tube for coagulation studies. Please contact the laboratory at [phone] for redraw instructions. Alanine aminotransferase [En zymatic activity/volume] in Serum or PlasmaOrdered By: Nancy Chaudhari on 07-12-2023 ALT [Catalytic activity/Vol] 9 U/L 7-52 [facility] Albumin [Mass/volume] in Ser um or Plasma by Bromocresol green (BCG) dye binding methoOrdered By: Nancy Chaudhari on 07-12-2023 Albumin BCG dye [Mass/Vol] 3.9 g/dL 3.5-5.7 [facility] Alkaline phosphatase [Enzyma tic activity/volume] in Serum or PlasmaOrdered By: Nancy Chaudhari on 07-12-2023 ALP [Catalytic activity/Vol] 106 U/L 34-104 [facility] Aspartate aminotransferase [ Enzymatic activity/volume] in Serum or PlasmaOrdered By: Nancy Chaudhari on 07-12-2023 AST [Catalytic activity/Vol] 8 U/L 13-39 [facility] B-Type Natriuretic Peptideon 07-12-2023 Natriuretic peptide B (Bld) [Mass/Vol] 34.0 pg/mL Normal 5-100 [facility] Comment on above: Result Comment: PERF ORMED BY: [facility] [address] [place] [address] PATHOLOGIST REGIONAL LOSS PREVENTION MANAGER CLIFFORD LOBATO M.D. Performed By: #### B 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, CMP, HS TROP, CK, PTT, CBC, PT ####[facility] [address] [place] [address] [facility] Basophils Auto (Bld) [#/Vol] Ordered By: Nancy Chaudhari on 07-12-2023 Basophils (Bld) [#/Vol] 0.1 10*3/uL 0.0-0.2 [facility] Basophils/100 WBC Auto (Bld) Ordered By: Nancy Chaudhari on 07-12-2023 Basophils/100 WBC (Bld) 1.1 % . [facility] Bilirubin.total [Mass/volume ] in Serum or PlasmaOrdered By: Nancy Chaudhari on 07-12-2023 Bilirubin [Mass/Vol] 0.4 mg/dL 0.3-1.0 [facility] Calcium [Mass/volume] in Ser um or PlasmaOrdered By: Nancy Chaudhari on 07-12-2023 Calcium [Mass/Vol] 8.5 mg/dL 8.6-10.3 [facility] Carbon dioxide, total [Moles /volume] in Serum or PlasmaOrdered By: Nancy Chaudhari on 07-12-2023 CO2 [Moles/Vol] 24.5 mmol/L 21.0-31.0 [facility] Chloride [Moles/volume] in S ilia or PlasmaOrdered By: Nancy Chaudhari on 07-12-2023 Chloride [Moles/Vol] 102 mmol/L 98-107 [facility] Complete Blood Count Auto Di ffon 07-12-2023 Basophils (Bld) [#/Vol] 0.1 10*3/uL Normal 0.0-0.2 [facility] Comment on above: Result Comment: PERF ORMED BY: [facility] [address] [place] [address] PATHOLOGIST REGIONAL LOSS PREVENTION MANAGER CLIFFORD LOBATO M.D. Performed By: #### B 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, CMP, HS TROP, CK, PTT, CBC, PT ####[address] Basophils/100 WBC (Bld) 1.1 % Normal . [facility] Comment on above: Performed By: #### B 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, CMP, HS TROP, CK, PTT, CBC, PT ####[facility] Eosinophils (Bld) [#/Vol] 0.3 10*3/uL Normal 0.0-0.45 [facility] Comment on above: Performed By: #### B 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, CMP, HS TROP, CK, PTT, CBC, PT ####[place] [address] [place] Eosinophils/100 WBC (Bld) 3.3 % Normal . [facility] Comment on above: Performed By: #### B 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, CMP, HS TROP, CK, PTT, CBC, PT ####[address] Erythrocyte distribution width (RBC) [Ratio] 17.1 % High 12.0-14.8 [facility] Comment on above: Performed By: #### B 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, CMP, HS TROP, CK, PTT, CBC, PT ####[address] Hematocrit (Bld) [Volume fraction] 32.7 % Low 38.8-50.0 [facility] Comment on above: Performed By: #### B 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, CMP, HS TROP, CK, PTT, CBC, PT ####[address] Hemoglobin (Bld) [Mass/Vol] 10.6 g/dL Low 13.0-17.0 [facility] Comment on above: Performed By: #### B 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, CMP, HS TROP, CK, PTT, CBC, PT ####[address] Lymphocytes (Bld) [#/Vol] 1.9 10*3/uL Normal 1.00-4.8 [facility] Comment on above: Performed By: #### B 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, CMP, HS TROP, CK, PTT, CBC, PT ####[address] Lymphocytes/100 WBC (Bld) 20.0 % Normal . [facility] Comment on above: Performed By: #### B 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, CMP, HS TROP, CK, PTT, CBC, PT ####[address] MCH (RBC) [Entitic mass] 22.8 pg Low 27.5-35.2 [facility] Comment on above: Performed By: #### B 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, CMP, HS TROP, CK, PTT, CBC, PT ####[address] MCV (RBC) [Entitic vol] 70.6 fL Low 83.5-101 [facility] Comment on above: Performed By: #### B 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, CMP, HS TROP, CK, PTT, CBC, PT ####[address] Mean Corpuscular HGB Conc 32.4 g/dL Low 32.5-35.6 [facility] Comment on above: Performed By: #### B 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, CMP, HS TROP, CK, PTT, CBC, PT ####[address] Monocytes (Bld) [#/Vol] 1.0 10*3/uL High 0.0-0.8 [facility] Comment on above: Performed By: #### B 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, CMP, HS TROP, CK, PTT, CBC, PT ####[address] Monocytes/100 WBC (Bld) 18.12 % Normal 0.00-20.00 [facility] Comment on above: Performed By: #### B 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, CMP, HS TROP, CK, PTT, CBC, PT ####[address] Monocytes/100 WBC (Bld) 10.2 % Normal . [facility] Comment on above: Performed By: #### B 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, CMP, HS TROP, CK, PTT, CBC, PT ####[address] Neutrophils (Bld) [#/Vol] 6.2 10*3/uL Normal 1.8-7.7 [facility] Comment on above: Performed By: #### B 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, CMP, HS TROP, CK, PTT, CBC, PT ####[address] Neutrophils/100 WBC (Bld) 65.4 % Normal . [facility] Comment on above: Performed By: #### B 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, CMP, HS TROP, CK, PTT, CBC, PT ####[address] NRBC% 0.1 /100{WBC} Normal 0-0.5 [facility] Comment on above: Performed By: #### B 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, CMP, HS TROP, CK, PTT, CBC, PT ####[address] Platelet mean volume (Bld) [Entitic vol] 9.1 fL Normal 6.6-10.1 [facility] Comment on above: Performed By: #### B 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, CMP, HS TROP, CK, PTT, CBC, PT ####[address] Platelets (Bld) [#/Vol] 233 10*3/uL Normal 150-450 [facility] Comment on above: Performed By: #### B 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, CMP, HS TROP, CK, PTT, CBC, PT ####[address] RBC (Bld) [#/Vol] 4.63 10*6/uL Normal 3.90-5.60 [facility] Comment on above: Performed By: #### B 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, CMP, HS TROP, CK, PTT, CBC, PT ####[address] WBC (Bld) [#/Vol] 9.5 10*3/uL Normal 4.1-10.5 [facility] Comment on above: Performed By: #### B 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, CMP, HS TROP, CK, PTT, CBC, PT ####[address] Comprehensive Metabolic Pane bárbara 07-12-2023 Albumin [Mass/Vol] 3.9 g/dL Normal 3.5-5.7 [facility] Comment on above: Performed By: #### B 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, CMP, HS TROP, CK, PTT, CBC, PT ####[address] Albumin/Globulin [Mass ratio] 1.3 {ratio} Normal [facility] Comment on above: Performed By: #### B 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, CMP, HS TROP, CK, PTT, CBC, PT ####[address] ALP [Catalytic activity/Vol] 106 U/L High 34-104 [facility] Comment on above: Performed By: #### B 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, CMP, HS TROP, CK, PTT, CBC, PT ####[address] ALT [Catalytic activity/Vol] 9 U/L Normal 7-52 [facility] Comment on above: Performed By: #### B 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, CMP, HS TROP, CK, PTT, CBC, PT ####[address] Anion gap [Moles/Vol] 13.4 mmol/L Normal 6.0-15.0 [facility] Comment on above: Performed By: #### B 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, CMP, HS TROP, CK, PTT, CBC, PT ####[address] AST [Catalytic activity/Vol] 8 U/L Low 13-39 [facility] Comment on above: Performed By: #### B 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, CMP, HS TROP, CK, PTT, CBC, PT ####[place] [id number] [facility] Bilirubin [Mass/Vol] 0.4 mg/dL Normal 0.3-1.0 [facility] Comment on above: Performed By: #### B 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, CMP, HS TROP, CK, PTT, CBC, PT ####[place] [id number] [facility] Calcium [Mass/Vol] 8.5 mg/dL Low 8.6-10.3 [facility] Comment on above: Performed By: #### B 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, CMP, HS TROP, CK, PTT, CBC, PT ####[address] Chloride [Moles/Vol] 102 mmol/L Normal 98-107 [facility] Comment on above: Performed By: #### B 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, CMP, HS TROP, CK, PTT, CBC, PT ####[place] [address] [address] CO2 [Moles/Vol] 24.5 mmol/L Normal 21.0-31.0 [facility] Comment on above: Performed By: #### B 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, CMP, HS TROP, CK, PTT, CBC, PT ####[place] [id number] [facility] Creatinine [Mass/Vol] 1.82 mg/dL High 0.70-1.30 [facility] Comment on above: Performed By: #### B 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, CMP, HS TROP, CK, PTT, CBC, PT ####[address] Creatinine Clr Calc Pharmacy 54.64 [facility] Comment on above: Result Comment: PERF ORMED BY: [facility] [address] [place] [address] PATHOLOGIST REGIONAL LOSS PREVENTION MANAGER CLIFFORD LOBATO M.D. Performed By: #### B 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, CMP, HS TROP, CK, PTT, CBC, PT ####[address] GFR/1.73 sq M.predicted MDRD (S/P/Bld) [Vol rate/Area] 42.789 mL/min/{1.73_m2} [facility] Comment on above: Performed By: #### B 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, CMP, HS TROP, CK, PTT, CBC, PT ####[place] [id number] [facility] Globulin (S) [Mass/Vol] 3.1 g/dL [facility] Comment on above: Performed By: #### B 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, CMP, HS TROP, CK, PTT, CBC, PT ####[place] [id number] [facility] Glucose [Mass/Vol] 302 mg/dL High 70-100 [facility] Comment on above: Result Comment: Alee goel Glucose Reference Range is dependent on time and content of last meal. Glucose of more than 200 mg/dL in a nonstressed, ambulatory subject supports the diagnosis of Diabetes Mellitus. ADA recommended reference range Performed By: #### B 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, CMP, HS TROP, CK, PTT, CBC, PT ####[address] Potassium [Moles/Vol] 3.9 mmol/L Normal 3.5-5.1 [facility] Comment on above: Performed By: #### B 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, CMP, HS TROP, CK, PTT, CBC, PT ####[place] [id number] [facility] Protein [Mass/Vol] 7.0 g/dL Normal 6.4-8.9 [facility] Comment on above: Performed By: #### B 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, CMP, HS TROP, CK, PTT, CBC, PT ####[place] [id number] [facility] Sodium [Moles/Vol] 136 mmol/L Normal 136-145 [facility] Comment on above: Performed By: #### B 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, CMP, HS TROP, CK, PTT, CBC, PT ####[place] [id number] [facility] Urea nitrogen [Mass/Vol] 16 mg/dL Normal 7-25 [facility] Comment on above: Performed By: #### B 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, CMP, HS TROP, CK, PTT, CBC, PT ####[place] [id number] [facility] Creatine Kinaseon 07-12-2023 CK [Catalytic activity/Vol] 55 U/L Normal 30-223 [facility] Comment on above: Performed By: #### B 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, CMP, HS TROP, CK, PTT, CBC, PT ####[place] [id number] [facility] Creatine kinase [Enzymatic a ctivity/volume] in Serum or PlasmaOrdered By: Nancy Chaudhari on 07-12-2023 CK [Catalytic activity/Vol] 55 U/L 30-223 [facility] Creatinine [Mass/volume] in Serum or PlasmaOrdered By: Nancy Chaudhari on 07-12-2023 Creatinine [Mass/Vol] 1.82 mg/dL 0.70-1.30 [facility] ECG 12 lead ECGon 07-12-2023 ECG 12 lead ECG [facility] Main [place] [id number] Electrocardiograph Report Signed Patient: Solomon Feldman SR MR#: [id number] : 1965 Acct:[id number] Age/Sex: 57 / M ADM Date: 07/12/23 Loc: ER Room: Type: [facility] ER Attending Dr: Ordering Provider: [...] By Nancy Chaudhari MD 01/26 0135 Normal [facility] Eosinophils Auto (Bld) [#/Vo l]Ordered By: Nancy Chaudhari on 07-12-2023 Eosinophils (Bld) [#/Vol] 0.3 10*3/uL 0.0-0.45 [facility] Eosinophils/100 WBC Auto (Bl d)Ordered By: Nancy Chaudhari on 07-12-2023 Eosinophils/100 WBC (Bld) 3.3 % . [facility] Erythrocyte distribution wid th Auto (RBC) [Ratio]Ordered By: Nancy Chaudhari on 07-12-2023 Erythrocyte distribution width (RBC) [Ratio] 17.1 % 12.0-14.8 [facility] Globulin Calc (S) [Mass/Vol] Ordered By: Nancy Chaudhari on 07-12-2023 Globulin (S) [Mass/Vol] 3.1 g/dL [facility] Glucose [Mass/volume] in Ser um or PlasmaOrdered By: Nancy Chaudhari on 07-12-2023 Glucose [Mass/Vol] 302 mg/dL 70-100 [facility] Comment on above: ADA recommended refe rence rangeRandom Glucose Reference Range is dependent on time and content of last meal. Glucose of more than 200 mg/dL in a nonstressed, ambulatory subject supports the diagnosis of Diabetes Mellitus. Hematocrit Auto (Bld) [Volum e fraction]Ordered By: Nancy Chaudhari on 07-12-2023 Hematocrit (Bld) [Volume fraction] 32.7 % 38.8-50.0 [facility] Hemoglobin [Mass/volume] in BloodOrdered By: Nancy Chaudhari on 07-12-2023 Hemoglobin (Bld) [Mass/Vol] 10.6 g/dL 13.0-17.0 [facility] INR in Platelet poor plasma by Coagulation assayOrdered By: Nancy Chaudhari on 07-12-2023 INR Coag (PPP) [Relative time] 1.1 {INR} [facility] Comment on above: INR Therapeutic Rang e [...] RBC Auto (Bld) [#/Vol] 9.5 10*3/uL 4.1-10.5 [facility] Lymphocytes Auto (Bld) [#/Vo l]Ordered By: Nancy Chaudhari on 07-12-2023 Lymphocytes (Bld) [#/Vol] 1.9 10*3/uL 1.00-4.8 [facility] Lymphocytes/100 WBC Auto (Bl d)Ordered By: Nancy Chaudhari on 07-12-2023 Lymphocytes/100 WBC (Bld) 20.0 % . [facility] MCH Auto (RBC) [Entitic mass ]Ordered By: Nancy Chaudhari on 07-12-2023 MCH (RBC) [Entitic mass] 22.8 pg 27.5-35.2 [facility] MCHC Auto (RBC) [Mass/Vol]Or dered By: Nancy Chaudhari on 07-12-2023 MCHC (RBC) [Mass/Vol] 32.4 g/dL 32.5-35.6 [facility] MCV Auto (RBC) [Entitic vol] Ordered By: Nancy Chaudhari on 07-12-2023 MCV (RBC) [Entitic vol] 70.6 fL 83.5-101 [facility] Monocyte distribution width [Entitic volume] in Blood by AutomatedOrdered By: Nancy Chaudhari on 07-12-2023 Monocyte distribution width Auto (Bld) [Entitic vol] 18.12 % 0.00-20.00 [facility] Monocytes Auto (Bld) [#/Vol] Ordered By: Nancy Chaudhari on 07-12-2023 Monocytes (Bld) [#/Vol] 1.0 10*3/uL 0.0-0.8 [facility] Monocytes/100 WBC Auto (Bld) Ordered By: Nancy Chaudhari on 07-12-2023 Monocytes/100 WBC (Bld) 10.2 % . [facility] Natriuretic peptide B [Mass/ Vol]Ordered By: Nancy Chaudhari on 07-12-2023 Natriuretic peptide B (Bld) [Mass/Vol] 34.0 pg/mL 5-100 [facility] Neutrophils Auto (Bld) [#/Vo l]Ordered By: Nancy Chaudhari on 07-12-2023 Neutrophils (Bld) [#/Vol] 6.2 10*3/uL 1.8-7.7 [facility] Neutrophils/100 WBC Auto (Bl d)Ordered By: Nancy Chaudhari on 07-12-2023 Neutrophils/100 WBC (Bld) 65.4 % . [facility] No Panel InformationOrdered By: Nancy Chaudhari on 07-12-2023 Estimated GFR (CKD-EPI) 42.789 mL/Min [facility] Creatinine Clearance (Chem 54.64 [facility] Nucleated erythrocytes [Pres ence] in Blood by Automated countOrdered By: Nancy Chaudhari on 07-12-2023 Nucleated RBC Auto Ql (Bld) 0.1 /100{WBC} 0-0.5 [facility] Partial Thromboplastin Timeo n 07-12-2023 aPTT Coag (Bld) [Time] 29.4 s Normal 25.1-36.5 [facility] Comment on above: Result Comment: A he matocrit value greater than 55% may lead to inaccurate results in coagulation testing. Patients having hematocrit values >55% require a special collection tube for coagulation studies. Please contact the laboratory at [phone] for redraw instructions. PERFORMED BY: [facility] [address] [place] [address] PATHOLOGIST REGIONAL LOSS PREVENTION MANAGER CLIFFORD LOBATO M.D. Performed By: #### B 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, CMP, HS TROP, CK, PTT, CBC, PT ####[facility] [id number] [place] [address] [facility] Platelet mean volume Auto (B ld) [Entitic vol]Ordered By: Nancy Chaudhari on 07-12-2023 Platelet mean volume (Bld) [Entitic vol] 9.1 fL 6.6-10.1 [facility] Platelets Auto (Bld) [#/Vol] Ordered By: Nancy Chaudhari on 07-12-2023 Platelets (Bld) [#/Vol] 233 10*3/uL 150-450 [facility] Potassium [Moles/volume] in Serum or PlasmaOrdered By: Nancy Chaudhari on 07-12-2023 Potassium [Moles/Vol] 3.9 mmol/L 3.5-5.1 [facility] Protein [Mass/volume] in Ser um or PlasmaOrdered By: Nancy Chaudhari on 07-12-2023 Protein [Mass/Vol] 7.0 g/dL 6.4-8.9 [facility] Prothrombin Time INRon 07-12 INR Coag (PPP) [Relative time] 1.1 {INR} Normal [facility] Comment on above: Result Comment: INR Therapeutic [...] 3 - 4.5 Performed By: #### B 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, CMP, HS TROP, CK, PTT, CBC, PT ####[facility] [id number] [place] [id number] [facility] PT Coag (PPP) [Time] 12.1 s Normal 9.0-12.9 [facility] Comment on above: Result Comment: A he matocrit value greater than 55% may lead to inaccurate results in coagulation testing. Patients having hematocrit values >55% require a special collection tube for coagulation studies. Please contact the laboratory at [phone] for redraw instructions. Performed By: #### B 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, CMP, HS TROP, CK, PTT, CBC, PT ####[facility] [place] [id number] [facility] Prothrombin time (PT)Ordered By: Nancy Chaudhari on 07-12-2023 PT Coag (PPP) [Time] 12.1 s 9.0-12.9 [facility] Comment on above: A hematocrit value g reater than 55% may lead to inaccurate results in coagulation testing. Patients having hematocrit values >55% require a special collection tube for coagulation studies. Please contact the laboratory at [phone] for redraw instructions. RBC Auto (Bld) [#/Vol]Ordere d By: Nancy Chaudhari on 07-12-2023 RBC (Bld) [#/Vol] 4.63 10*6/uL 3.90-5.60 [facility] Serum or plasma albumin/glob ulin mass ratioOrdered By: Nancy Chaudhari on 07-12-2023 Albumin/Globulin [Mass ratio] 1.3 {ratio} [facility] Serum or plasma anion gap de terminationOrdered By: Nancy Chaudhari on 07-12-2023 Anion gap [Moles/Vol] 13.4 mmol/L 6.0-15.0 [facility] Sodium [Moles/volume] in Ser um or PlasmaOrdered By: Nancy Chaudhari on 07-12-2023 Sodium [Moles/Vol] 136 mmol/L 136-145 [facility] Troponin I High Sensitivityo n 07-12-2023 Troponin I High Sensitivity 4.6 pg/mL Normal 0.0-20.0 [facility] Comment on above: Result Comment: PERF ORMED BY: [place] [address] PATHOLOGIST REGIONAL LOSS PREVENTION MANAGER CLIFFORD LOBATO M.D. Performed By: #### B 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, CMP, HS TROP, CK, PTT, CBC, PT ####[facility] [id number] [place], [place] [address] Troponin I.cardiac [Mass/vol ume] in Serum or Plasma by Detection limit <= 0.01 ng/Ordered By: Nancy Chaudhari on 07-12-2023 Troponin I.cardiac DL <= 0.01 ng/mL [Mass/Vol] 4.6 pg/mL 0.0-20.0 [facility] Urea nitrogen [Mass/volume] in Serum or PlasmaOrdered By: Nancy Chaudhari on 07-12-2023 Urea nitrogen [Mass/Vol] 16 mg/dL 7-25 [facility] WBC Auto (Bld) [#/Vol]Ordere d By: Nancy Chaudhari on 07-12-2023 WBC (Bld) [#/Vol] 9.5 10*3/uL 4.1-10.5 [facility] [facility] XR chest 1V portableon 07-12 XR chest 1V portable [facility] Main [facility] [address] [place] [address] XRay Report Signed Patient: Solomon Feldman SR MR#: [id number] : 1965 Acct:[id number] Age/Sex: 57 / M ADM Date: 07/12/23 [...] Sudeep Lind M.D.07/12/2023 5:08 PM Dictation Location: [place] [address] Transcribed By: [facility] 07/12/231707 Dictated By: Sudeep Lind DO 07/12/231706 Signed By: 07/12/231707 [facility] Patient Educationon 06-02-20 Patient Education Urology Benign [...] Follow these instructions at home: ? Take swcw-bwp-bxaghid and prescription medicines only as told by [...] the medicine (more content not included)... Normal [facility] Retail - Clinical Noteon Retail - Clinical Note [id number]#1.00TIFF [facility] Urology Office/Clinic Noteon 06-02-2023 Urology Office/Clinic Note Chief Complaint S/p to Cysto HPI Staff Sp to Cysto done @ [facility] on 02/14/23- Has not noticed [...] Contact Information SOLEDAD HERRERA, Yeyo Blum, URL [facility] [place] [place] [id number]- Additional Instructions: 1 month w/ cath volumes Patient Education Benign Prostatic Hyperplasia IMattie, personally scribed for Dr. Silvester on 06/02/2023 12:02:46. . Documentation recorded by [...] heart failure) (more content not included)... Normal [facility] Comment on above: Result Comment: Elec tronically Signed By: Yeyo SILVESTRE MD\.br\Date and Time Signed: 06/02/23 12:16 EST\.br\Electronically Co-Signed By: Mattie Foster.br\Date and Time Co-Signed: 12/29/23 12:04 EST Patient Educationon 11-29-20 23 Patient Education Normal [facility] Pathology Noteon 05-02-2023 Pathology Note [id number]#1.00TIFF [facility] Lab Reportson 04-14-2023 Lab Reports [id number]#1.00TIFF [facility] Operative Reporton Operative Report [id number]#1.00TIFF Normal [facility] Patient Correspondenceon Patient Correspondence [id number]#1.00TIFF [facility] Lab Reportson 03-31-2023 Lab Reports [id number]#1.00TIFF [facility] RAD - MISCon 03-31-2023 RAD - MISC [id number]#1.00TIFF [facility] Patient Correspondenceon Patient Correspondence [id number]#1.00TIFF Normal [facility] Formson 03-23-2023 Forms [id number]#1.00TIFF [facility] A1C HEMOGLOBINon 03-15-2023 HbA1c (Bld) [Mass fraction] 7.5 % [employer] Other HbA1c (Bld) [Mass fraction]o n 03-15-2023 A1C HEMOGLOBIN [employer] Other Lab Reportson 03-09-2023 Lab Reports [id number]#1.00TIFF [facility] Consultation Noteon 02-28-20 Consultation Note [id number]#1.00CD:12 7 [facility] Consent for Procedure/Surger yon 02-15-2023 Consent for Procedure/Surgery [id number]#1.00CD:12 7 [facility] Office Visit (Cardiology)on 02-15-2023 Follow-up [...] in adult Healthy Weight Tips; Status:Complete; Done: [id number] Patient Instructions Please bring all medicines, vitamins, [...] Sia HERRERA, (more content not included)... Normal [employer] Tobacco Screening.on 023 Fall risk assessment c) Not medically indicated -[facility] 250 DO Work Phone: Tobacco use status CP b) No -[facility] 250 DO Work Phone: Tobacco Screening. Yes [facility] 250 DO Work Phone: Consent for Procedure/Surger yon 02-14-2023 Consent for Procedure/Surgery [id number]#1.00CD:1 27 [facility] Consent for Procedure/Surgery [id number]#1.00CD:1 27 [facility] Consent for Treatmenton 02-03 Consent for Treatment [id number]#1.00CD:12 7 [facility] IntraOperative Documentson 0 02-14-2023 IntraOperative Documents [id number]#1.00CD:1 27 [facility] IntraOperative Documents [id number]#1.00CD:1 27 [facility] Main OR Intraoperative Recor don 02-14-2023 Main OR Intraoperative Record IntraOp Document Type FTURO Summary Primary Physician: Yeyo SILVESTRE MD Finalized Date/Time: 02/14/23 10:18:58 Pt. Name: SOLOMON FELDMAN SR/Sex: 1965 Male Med Rec #: [id number] Physician: Yeyo SILVESTRE MD Financial #: [id number] Pt. Type: O Room/Bed: / Admit/Disch: 02/14/23 [...] Sheri Daniel Role Performed Surgeon - Primary Flight Engineer Inspector - Primary Scrub - Primary Time In [...] 09:45 Chandrika Martínez RN 02/14/23 10:18 Normal [facility] Main OR Preoperative Recordo n 02-14-2023 Main OR Preoperative Record Holding Area Document Type FTURO Summary Primary Physician: Yeyo SILVESTRE MD Finalized Date/Time: 02/14/23 09:01:37 Pt. Name: GASTON CHRISTIANSOLOMON/Sex: 1965 Male Med Rec #: [id number] Physician: Yeyo SILVESTRE MD Financial #: [id number] Pt. Type: O Room/Bed: / Admit/Disch: 02/14/23 [...] By: Sheri Bolivar RN 02/14/23 09:01 Normal [facility] Operative Reporton Operative Report Patient: [...] with antibiotic coverage, Follow up arranged. Normal [facility] Comment on above: Result Comment: [...] including vitamins, herbs, eye drops, creams, and bmtk-rtz-kpthaft medicines. ? Any problems you or family [...] tells you to take them. ? Taking dyzm-hqx-ygsallr medicines, vitamins, herbs, and supplements. Surgery safety [...] health care (more content not included)... Normal [facility] Progress Note-Physicianon Progress Note-Physician Patient: [...] mg = 1 tab(s), PRN, SubLingual, q5min [place] 325 mg-5 mg oral tablet 1 tab(s), [...] 278.00 / Possible Fibromyalgia / SNOMED CT [id number]-5272-18H6-4 175780C64O7 / Confirmed Restless leg / ICD-9-CM 333.94 / Confirmed Arthritis / SNOMED CT 98GZ1645-9U0F-05X3-2A2S-O FD3Q612Z519 / Confirmed Hyperlipidemia / SNOMED CT 77959924 / Confirmed Smoker / SNOMED CT I081RW9D-1900-90I0-4543-Q LT6Q4354EQ1 / Confirmed Added secondary to documentation in Social History. Asthma / SNOMED CT 474871593 / Confirmed COPD type A / SNOMED CT 862855484 / Confirmed Head ache / SNOMED CT 38045883 / Confirmed Heart attack / SNOMED CT 72456270 / Confirmed Heart disease / SNOMED CT 45442121 / Confirmed Heart murmur / SNOMED CT 495787085 / Confirmed Urinary retention / SNOMED CT 427931561 / Confirmed BPH with obstruction/lower urinary tract symptoms / SNOMED CT 9508779628 / Confirmed Orchitis / SNOMED CT 410452626 / Confirmed Gross hematuria / SNOMED CT 540804557 / Confirmed Tobacco use / SNOMED CT LFDC7938-4082-6I48-F4X8-6 36184KL8DL3 / Confirmed Added secondary to social history documentation. Histories Past Medical History: Active Fibromyalgia (M6C866P3-Y58G-5243-66C8- 9036950H45V0) Restless leg (333.94) Arthritis ([id number]-95B5-9D3F- LMX2C827A741) Hyperlipidemia (65833861) Resolved HTN [Hypertension] (401.9): Resolved. NIDDM (250.00): Resolved. GERD [Gastroesophageal reflux disease] (530.81): Resolved. CHF (congestive heart failure) (B3988027-2H3H-1M8X-1N23- G099493Q2K12): Resolved. OR (myocardial infarction) (316E6KUT-79P2-9C4P-5L55- 30473I72Y3LA): Resolved. Family History: Diabetes mellitus Mother Heart disease Mother Alcoholism Brother Drug addiction Brother Acute myocardial infarction Mother Grandparent Procedure history: Bilateral Eye Surgery. Comments: 07/10/2014 17:25 ALESHA Cormier RN, Kati bilateral cataracts with iol implants Bilateral Carpal Tunnel Surgery. cardiac stents. Appendectomy (587167681). Colonoscopy (790704705). Cataract extraction and insertion of intraocular lens (6941436492). Procedure on back (585058483). Social History Social & Psychosocial Habits Alcohol [...] procedure such (more content not included)... Normal [facility] Comment on above: Result Comment: Elec tronically Signed By: SOLEDAD HERRERA, Yeyo Blum\.br\Date and Time Signed: 02/14/23 09:58 EDT Consent for Treatmenton Consent for Treatment [id number]#1.00CD:12 7 [facility] Ambulatory Visit Summaryon 0 01-30-2023 Ambulatory Visit Summary SOLOMON FELDMAN SR :1965 Visit Date:01/30/2023 Ambulatory Visit Instructions Your Diagnosis Urinary retention Gross hematuria BPH with obstruction/lower urinary tract symptoms Orchitis Your Care Team Attending Physician - Yeyo SILVESTRE MD Primary Care Physician - JENARO LYNCH DO This Is Your Medications List Contact prescribing physician if questions or concerns acetaminophen-hydrocodone ([place] 325 mg-5 mg oral tablet) albuterol (ProAir [...] [facility] [address] , [place] [address] [phone] Medications What How Much When Instructions Unchanged acetaminophen-hydrocodone ([place] 325 mg-5 mg oral tablet) 1 Tablets [...] or vivian (more content not included)... Normal [facility] Patient Educationon 01-31-20 23 Patient [...] including vitamins, herbs, eye drops, creams, and rnbf-pww-zuiacas medicines. ? Whether you are or may [...] be (more content not included)... Normal [facility] Urology Office/Clinic Noteon 01-30-2023 Urology Office/Clinic Note [...] 12/20/22 due to seeing blood in pt's Ubrt bag, only lasted 24hrs. Pt had a [...] URL [facility] [address], [place] [facility] [place] [address] [phone] Additional Instructions: sched cysto/uros Patient Education Urodynamic [...] failure) GERD [Gastroesophageal reflux disease] HTN [Hypertension] OR (myocardial infarction) NIDDM Procedure/Surgical History Appendectomy, Bilateral [...] mg, BID (more content not included)... Normal [facility] Comment on above: Result Comment: Elec tronically Signed By: Saima Sutton\.br\Date and Time Signed: 01/30/23 11:38 EDT [facility] CARDIAC STRESS/REST INJE CTIONon 01-25-2023 [facility] CARDIAC STRESS/REST INJECTION Patient Name: SOLOMON FELDMAN STUDY: MYOCARDIAL PERFUSION STRESS TEST WITH EXERCISE CONVERTED TO LEXISCAN Performing facility: [facility], [address] [place] [address], [address], [place] [address] [facility] Provider: Dolores Feldman RN, SENIOR SQL DATABASE DEVELOPER PCP: Dr. Jenaro Lynch Supervising provider: Pascale Purvis MD, [facility] INDICATION: Anginal equivalent CAD; HISTORY: Gender: M; Age: 57 y/o ; Height: 182.88 cm; Weight: 97.6066909 kg. High Cholesterol; CAD; Diabetes; HTN; Palpitations; Chest Pain; Quit smoking unknown years ago. COMPARISON: Previous nuclear testing completed at [facility]. ACCESSION NUMBER(S): [id number]; [id number]; [id number] ORDERING CLINICIAN: DOLORES FELDMAN TECHNIQUE: ONE DAY [...] Electronically signed by: PASCALE PURVIS MD Normal [facility] No Panel Informationon 01-25 Normal -[facility] 250 DO Work Phone: Office [...] contact the office if new symptoms arise. 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 after procedure Chief Complaint Routine f/u: 'I [...] Screening.on 023 Adult depression screening assessment No [facility] [address] DO Work Phone: Tobacco use status [facility] b) No [facility] [address] DO Work Phone: Ambulatory Visit Summaryon 0 12-28-2022 Ambulatory Visit Summary GASTON CHRISTIAN, SOLOMON María :1965 Visit Date:12/28/2022 Ambulatory Visit Instructions Your Care Team Attending Physician - SOLEDAD HERRERA, Yeyo Blum Primary Care Physician - JENARO LYNCH DO This Is Your Medications List acetaminophen-hydrocodone ([place] 325 mg-5 mg oral tablet) albuterol (ProAir [...] HERRERA, Yeyo Blum Where: [facility] Aurelio Normal [facility] Formson 11-24-2022 Forms [id number]#1.00CD:127 Normal [facility] Screenson 11-24-2022 Screens [id number]#1.00CD:1 27 Normal [facility] Patient Educationon 11-24-19 23 Patient [...] provider. Document Revised: 08/11/2021 Document Reviewed: 05/07/2021 [email or web address] Patient Education ? 2021 [email or web address]. Marquise [facility] Urology Office/Clinic Noteon 11-23-2022 Urology Office/Clinic Note [...] [facility] [address] , [place] [address]- Additional Instructions: 1 month for cath change [...] failure) GERD [Gastroesophageal reflux disease] HTN [Hypertension] OR (myocardial infarction) NIDDM Procedure/Surgical History Appendectomy, Bilateral Carpal Tunnel Surgery, Bilateral Eye Surgery, cardiac stents, Ca (more content not included)... Normal [facility] Comment on above: Result Comment: Elec tronically Signed By: Yeyo SILVESTRE MD\.br\Date and Time Signed: 11/23/22 12:47 EDT\.br\Electronically Co-Signed By: Lorie Leblanc\.br\Date and Time Co-Signed: 11/23/22 12:46 EDT A1C with Estimated Average G [facility] 09-27-2022 Glucose [Mass/Vol] 246 mg/dL Normal [facility] Comment on above: Order Comment: Reaso n for Exam Type 2 diabetes mellitus with circulatory disorder Result Comment: PERF ORMED BY: [place] [address] PATHOLOGIST REGIONAL LOSS PREVENTION MANAGER CLIFFORD LOBATO M.D. Performed By: #### A [address]C [facility] eA #### [facility] [address] [place] [address] HbA1c (Bld) [Mass fraction] 10.2 % High 4.3-5.6 [facility] Comment on above: Order Comment: Reaso n for Exam Type 2 diabetes mellitus with circulatory disorder Result Comment: Incr eased risk for diabetes: 5.7 - 6.4 diabetes: >6.4 glycemic control for adults with diabetes: <7.0 Performed By: #### A 1C WT eA #### [facility] [address] [place] [id number] [facility] Alanine aminotransferase [En zymatic activity/volume] in Serum or PlasmaOrdered By: Jenaro Lynch on 09-27-2022 ALT [Catalytic activity/Vol] 15 U/L 7-52 [facility] Albumin [Mass/volume] in Ser um or Plasma by Bromocresol green (BCG) dye binding methoOrdered By: Jenaro Lynch on 09-27-2022 Albumin BCG dye [Mass/Vol] 4.1 g/dL 3.5-5.7 [facility] Alkaline phosphatase [Enzyma tic activity/volume] in Serum or PlasmaOrdered By: Jenaro Lynch on 09-27-2022 ALP [Catalytic activity/Vol] 116 U/L 34-104 [facility] Aspartate aminotransferase [ Enzymatic activity/volume] in Serum or PlasmaOrdered By: Jenaro Lynch on 09-27-2022 AST [Catalytic activity/Vol] 15 U/L 13-39 [facility] Basophils Auto (Bld) [#/Vol] Ordered By: Jenaro Lynch on 09-27-2022 Basophils (Bld) [#/Vol] 0.1 10*3/uL 0.0-0.2 [facility] Basophils/100 WBC Auto (Bld) Ordered By: Jenaro Lynch on 09-27-2022 Basophils/100 WBC (Bld) 1.1 % . [facility] Bilirubin.total [Mass/volume ] in Serum or PlasmaOrdered By: Jenaro Lynch on 09-27-2022 Bilirubin [Mass/Vol] 0.4 mg/dL 0.3-1.0 [facility] Calcium [Mass/volume] in Ser um or PlasmaOrdered By: Jenaro Lynch on 09-27-2022 Calcium [Mass/Vol] 8.8 mg/dL 8.6-10.3 [facility] Carbon dioxide, total [Moles /volume] in Serum or PlasmaOrdered By: Jenaro Lynch on 09-27-2022 CO2 [Moles/Vol] 27.2 mmol/L 21.0-31.0 [facility] Chloride [Moles/volume] in S ilia or PlasmaOrdered By: Jenaro Lynch on 09-27-2022 Chloride [Moles/Vol] 99 mmol/L 98-107 [facility] Cholesterol [Mass/volume] in Serum or PlasmaOrdered By: Jenaro Lynch on 09-27-2022 Cholesterol [Mass/Vol] 104 mg/dL 140-200 [facility] Comment on above: Chol less than 200 m g/dl low riskChol 201-239 mg/dl borderline riskChol 240 mg/dl and greater high risk Cholesterol in LDL Calc [Mas s/Vol]Ordered By: Jenaro Lynch on 09-27-2022 Cholesterol in LDL [Mass/Vol] TNP [facility] Comment on above: Test not performed Cholesterol in LDL [Mass/vol ume] in Serum or PlasmaOrdered By: Jenaro Lynch on 09-27-2022 Cholesterol in LDL [Mass/Vol] 38 mg/dL 0-100 [facility] Comment on above: LDL ATP III CLASSIFI CATIONLDL less than 100 mg/dL OptimalLDL 100-129 mg/dL Near or above optimalLDL 130-159 mg/dL Borderline highLDL 160-189 mg/dL HighLDL greater than 189 mg/dL Very high Cholesterol in VLDL Calc [Ma ss/Vol]Ordered By: Jenaro Lynch on 09-27-2022 Cholesterol in VLDL [Mass/Vol] 99 mg/dL [facility] Complete Blood Count Auto Di ffon 09-27-2022 Basophils (Bld) [#/Vol] 0.1 10*3/uL Normal 0.0-0.2 [facility] Comment on above: Order Comment: Reaso n for Exam Hyperlipidemia;Type 2 diabetes mellitus with circulatory dis Result Comment: PERF ORMED BY: [place] [address] PATHOLOGIST REGIONAL LOSS PREVENTION MANAGER CLIFFORD LOBATO M.D. Performed By: #### C BC #### [facility] [address] [place] [address] [place] Basophils/100 WBC (Bld) 1.1 % Normal . [facility] Comment on above: Order Comment: Reaso n for Exam Hyperlipidemia;Type 2 diabetes mellitus with circulatory dis Performed By: #### C BC #### [facility] [address] [place] [address] [place] Eosinophils (Bld) [#/Vol] 0.7 10*3/uL High 0.0-0.45 [facility] Comment on above: Order Comment: Reaso n for Exam Hyperlipidemia;Type 2 diabetes mellitus with circulatory dis Performed By: #### C BC #### [facility] [address] [place] [id number] [place] Eosinophils/100 WBC (Bld) 5.9 % Normal . [facility] Comment on above: Order Comment: Reaso n for Exam Hyperlipidemia;Type 2 diabetes mellitus with circulatory dis Performed By: #### C BC #### [address] Erythrocyte distribution width (RBC) [Ratio] 16.0 % High 12.0-14.8 [facility] Comment on above: Order Comment: Reaso n for Exam Hyperlipidemia;Type 2 diabetes mellitus with circulatory dis Performed By: #### C BC #### [address] Hematocrit (Bld) [Volume fraction] 41.0 % Normal 38.8-50.0 [facility] Comment on above: Order Comment: Reaso n for Exam Hyperlipidemia;Type 2 diabetes mellitus with circulatory dis Performed By: #### C BC #### [place] [address] [place] Hemoglobin (Bld) [Mass/Vol] 13.2 g/dL Normal 13.0-17.0 [facility] Comment on above: Order Comment: Reaso n for Exam Hyperlipidemia;Type 2 diabetes mellitus with circulatory dis Performed By: #### C BC #### [place] [address] [place] Lymphocytes (Bld) [#/Vol] 2.3 10*3/uL Normal 1.00-4.8 [facility] Comment on above: Order Comment: Reaso n for Exam Hyperlipidemia;Type 2 diabetes mellitus with circulatory dis Performed By: #### C BC #### [place] [address] [place] Lymphocytes/100 WBC (Bld) 18.2 % Normal . [facility] Comment on above: Order Comment: Reaso n for Exam Hyperlipidemia;Type 2 diabetes mellitus with circulatory dis Performed By: #### C BC #### [facility] [address] MCH (RBC) [Entitic mass] 23.9 pg Low 27.5-35.2 [facility] Comment on above: Order Comment: Reaso n for Exam Hyperlipidemia;Type 2 diabetes mellitus with circulatory dis Performed By: #### C BC #### [address] MCV (RBC) [Entitic vol] 74.3 fL Low 83.5-101 [facility] Comment on above: Order Comment: Reaso n for Exam Hyperlipidemia;Type 2 diabetes mellitus with circulatory dis Performed By: #### C BC #### [address] Mean Corpuscular HGB Conc 32.2 g/dL Low 32.5-35.6 [facility] Comment on above: Order Comment: Reaso n for Exam Hyperlipidemia;Type 2 diabetes mellitus with circulatory dis Performed By: #### C BC #### [place] [address] [place] Monocytes (Bld) [#/Vol] 1.0 10*3/uL High 0.0-0.8 [facility] Comment on above: Order Comment: Reaso n for Exam Hyperlipidemia;Type 2 diabetes mellitus with circulatory dis Performed By: #### C BC #### [place] [address] [place] Monocytes/100 WBC (Bld) 7.9 % Normal . [facility] Comment on above: Order Comment: Reaso n for Exam Hyperlipidemia;Type 2 diabetes mellitus with circulatory dis Performed By: #### C BC #### [place] [address] [place] Neutrophils (Bld) [#/Vol] 8.3 10*3/uL High 1.8-7.7 [facility] Comment on above: Order Comment: Reaso n for Exam Hyperlipidemia;Type 2 diabetes mellitus with circulatory dis Performed By: #### C BC #### [place] [address] [place] Neutrophils/100 WBC (Bld) 66.9 % Normal . [facility] Comment on above: Order Comment: Reaso n for Exam Hyperlipidemia;Type 2 diabetes mellitus with circulatory dis Performed By: #### C BC #### [facility] [address] NRBC% 0.1 /100{WBC} Normal 0-0.5 [facility] Comment on above: Order Comment: Reaso n for Exam Hyperlipidemia;Type 2 diabetes mellitus with circulatory dis Performed By: #### C BC #### [facility] [address] Platelet mean volume (Bld) [Entitic vol] 9.1 fL Normal 6.6-10.1 [facility] Comment on above: Order Comment: Reaso n for Exam Hyperlipidemia;Type 2 diabetes mellitus with circulatory dis Performed By: #### C BC #### [facility] [address] Platelets (Bld) [#/Vol] 209 10*3/uL Normal 150-450 [facility] Comment on above: Order Comment: Reaso n for Exam Hyperlipidemia;Type 2 diabetes mellitus with circulatory dis Performed By: #### C BC #### [address] RBC (Bld) [#/Vol] 5.52 10*6/uL Normal 3.90-5.60 [facility] Comment on above: Order Comment: Reaso n for Exam Hyperlipidemia;Type 2 diabetes mellitus with circulatory dis Performed By: #### C BC #### [place] [address] [place] WBC (Bld) [#/Vol] 12.4 10*3/uL High 4.1-10.5 [facility] Comment on above: Order Comment: Reaso n for Exam Hyperlipidemia;Type 2 diabetes mellitus with circulatory dis Performed By: #### C BC #### [address] Comprehensive Metabolic Pane bárbara 09-27-2022 Albumin [Mass/Vol] 4.1 g/dL Normal 3.5-5.7 [facility] Comment on above: Order Comment: Reaso n for Exam Hyperlipidemia;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 Reason for Exam Gout Performed By: #### T SH3, LDLD, CMP, URIC, LIPID #### [facility] [address] Albumin/Globulin [Mass ratio] 1.4 {ratio} Normal [facility] Comment on above: Order Comment: Reaso n for Exam Hyperlipidemia;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 Reason for Exam Gout Performed By: #### T SH3, LDLD, CMP, URIC, LIPID #### [facility] [address] ALP [Catalytic activity/Vol] 116 U/L High 34-104 [facility] Comment on above: Order Comment: Reaso n for Exam Hyperlipidemia;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 Reason for Exam Gout Performed By: #### T SH3, LDLD, CMP, URIC, LIPID #### [facility] [address] ALT [Catalytic activity/Vol] 15 U/L Normal 7-52 [facility] Comment on above: Order Comment: Reaso n for Exam Hyperlipidemia;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 Reason for Exam Gout Performed By: #### T SH3, LDLD, CMP, URIC, LIPID #### [facility] [address] [place] [address] Anion gap [Moles/Vol] 14.1 mmol/L Normal 6.0-15.0 [facility] Comment on above: Order Comment: Reaso n for Exam Hyperlipidemia;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 Reason for Exam Gout Performed By: #### T SH3, LDLD, CMP, URIC, LIPID #### [facility] [address] [place] [id number] [place] AST [Catalytic activity/Vol] 15 U/L Normal 13-39 [facility] Comment on above: Order Comment: Reaso n for Exam Hyperlipidemia;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 Reason for Exam Gout Performed By: #### T SH3, LDLD, CMP, URIC, LIPID #### [facility] [address] [place] [address] [place] Bilirubin [Mass/Vol] 0.4 mg/dL Normal 0.3-1.0 [facility] Comment on above: Order Comment: Reaso n for Exam Hyperlipidemia;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 Reason for Exam Gout Performed By: #### T SH3, LDLD, CMP, URIC, LIPID #### [facility] [address] [place] [id number] [facility] Calcium [Mass/Vol] 8.8 mg/dL Normal 8.6-10.3 [facility] Comment on above: Order Comment: Reaso n for Exam Hyperlipidemia;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 Reason for Exam Gout Performed By: #### T SH3, LDLD, CMP, URIC, LIPID #### [facility] [address] Chloride [Moles/Vol] 99 mmol/L Normal 98-107 [facility] Comment on above: Order Comment: Reaso n for Exam Hyperlipidemia;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 Reason for Exam Gout Performed By: #### T SH3, LDLD, CMP, URIC, LIPID #### [facility] [address] [place] [address] [place] CO2 [Moles/Vol] 27.2 mmol/L Normal 21.0-31.0 [facility] Comment on above: Order Comment: Reaso n for Exam Hyperlipidemia;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 Reason for Exam Gout Performed By: #### T SH3, LDLD, CMP, URIC, LIPID #### [facility] [address] [place] [id number] [place] Creatinine [Mass/Vol] 1.84 mg/dL High 0.70-1.30 [facility] Comment on above: Order Comment: Reaso n for Exam Hyperlipidemia;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 Reason for Exam Gout Performed By: #### T SH3, LDLD, CMP, URIC, LIPID #### [facility] [address] [place] [id number] [place] GFR/1.73 sq M.predicted MDRD (S/P/Bld) [Vol rate/Area] 42.232 mL/min/{1.73_m2} Normal [facility] Comment on above: Order Comment: Reaso n for Exam Hyperlipidemia;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 Reason for Exam Gout Performed By: #### T SH3, LDLD, CMP, URIC, LIPID #### [facility] [address] Globulin (S) [Mass/Vol] 2.9 g/dL Normal [facility] Comment on above: Order Comment: Reaso n for Exam Hyperlipidemia;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 Reason for Exam Gout Performed By: #### T SH3, LDLD, CMP, URIC, LIPID #### [facility] [address] Glucose [Mass/Vol] 225 mg/dL High 70-100 [facility] Comment on above: Order Comment: Reaso n for Exam Hyperlipidemia;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 Reason for Exam Gout Result Comment: [facility] Glucose Reference Range is dependent on time and content of last meal. Glucose of more than 200 mg/dL in a nonstressed, ambulatory subject supports the diagnosis of Diabetes Mellitus. ADA recommended reference range Performed By: #### T SH3, LDLD, CMP, URIC, LIPID #### [facility] [address] Potassium [Moles/Vol] 4.3 mmol/L Normal 3.5-5.1 [facility] Comment on above: Order Comment: Reaso n for Exam Hyperlipidemia;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 Reason for Exam Gout Performed By: #### T SH3, LDLD, CMP, URIC, LIPID #### [facility] [address] Protein [Mass/Vol] 7.0 g/dL Normal 6.4-8.9 [facility] Comment on above: Order Comment: Reaso n for Exam Hyperlipidemia;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 Reason for Exam Gout Performed By: #### T SH3, LDLD, CMP, URIC, LIPID #### [facility] [address] Sodium [Moles/Vol] 136 mmol/L Normal 136-145 [facility] Comment on above: Order Comment: Reaso n for Exam Hyperlipidemia;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 Reason for Exam Gout Performed By: #### T SH3, LDLD, CMP, URIC, LIPID #### [facility] [address] [place] [address] [place] Urea nitrogen [Mass/Vol] 15 mg/dL Normal 12-27 [facility] Comment on above: Order Comment: Reaso n for Exam Hyperlipidemia;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 Reason for Exam Gout Performed By: #### T SH3, LDLD, CMP, URIC, LIPID #### [facility] [address] [place] [address] [place] Creatinine [Mass/volume] in Serum or PlasmaOrdered By: Jenaro Lynch on 09-27-2022 Creatinine [Mass/Vol] 1.84 mg/dL 0.70-1.30 [facility] Eosinophils Auto (Bld) [#/Vo l]Ordered By: Jenaro Lynch on 09-27-2022 Eosinophils (Bld) [#/Vol] 0.7 10*3/uL 0.0-0.45 [facility] Eosinophils/100 WBC Auto (Bl d)Ordered By: Jenaro Lynch on 09-27-2022 Eosinophils/100 WBC (Bld) 5.9 % . [facility] Erythrocyte distribution wid th Auto (RBC) [Ratio]Ordered By: Jenaro Lynch on 09-27-2022 Erythrocyte distribution width (RBC) [Ratio] 16.0 % 12.0-14.8 [facility] Globulin Calc (S) [Mass/Vol] Ordered By: Jenaro Lynch on 09-27-2022 Globulin (S) [Mass/Vol] 2.9 g/dL [facility] Glucose [Mass/volume] in Ser um or PlasmaOrdered By: Jenaro Lynch on 09-27-2022 Glucose [Mass/Vol] 225 mg/dL 70-100 [facility] Comment on above: ADA recommended refe rence rangeRandom Glucose Reference Range is dependent on time and content of last meal. Glucose of more than 200 mg/dL in a nonstressed, ambulatory subject supports the diagnosis of Diabetes Mellitus. Hematocrit Auto (Bld) [Volum e fraction]Ordered By: Jenaro Lynch on 09-27-2022 Hematocrit (Bld) [Volume fraction] 41.0 % 38.8-50.0 [facility] Hemoglobin [Mass/volume] in BloodOrdered By: Jenaro Lynch on 09-27-2022 Hemoglobin (Bld) [Mass/Vol] 13.2 g/dL 13.0-17.0 [facility] LDL Cholesterol Measuredon 0 09-27-2022 LDL Cholesterol Measured 38 mg/dL Normal 0-100 [facility] Comment on above: Order Comment: Reaso n [...] #### T SH3, LDLD, CMP, URIC, LIPID ####[facility] [id number] Leukocytes [#/volume] correc jorge for nucleated erythrocytes in Blood by Automated counOrdered By: Jenaro Lynch on 09-27-2022 WBC corrected for nucl RBC Auto (Bld) [#/Vol] 12.4 10*3/uL 4.1-10.5 [facility] Lipid Panelon 09-27-2022 Cholesterol [Mass/Vol] 104 mg/dL Low 140-200 [facility] Comment on above: Order Comment: Reaso n for Exam Hyperlipidemia;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 Reason for Exam Gout Result Comment: Chol less than 200 mg/dl low risk Chol 201-239 mg/dl borderline risk Chol 240 mg/dl and greater high risk Performed By: #### T SH3, LDLD, CMP, URIC, LIPID #### [facility] [address] [place] [address] [place] Cholesterol in HDL [Mass/Vol] 21 mg/dL Low 29-71 [facility] Comment on above: Order Comment: Reaso n for Exam Hyperlipidemia;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 Reason for Exam Gout Result Comment: HDL CHOL ATP-III CLASSIFICATION Cardiovascular Risk HDL > or equal to 60 mg/dL LOW HDL < 40 mg/dL HIGH Performed By: #### T SH3, LDLD, CMP, URIC, LIPID #### [facility] [address] Cholesterol.total/Chol esterol in HDL [Mass ratio] 5.0 {ratio} Normal <5.0 [facility] Comment on above: Order Comment: Reaso n for Exam Hyperlipidemia;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 Reason for Exam Gout Performed By: #### T SH3, LDLD, CMP, URIC, LIPID #### [facility] [address] LDL Cholesterol,Calculated Not performed Normal 0-100 [facility] Comment on above: Order Comment: Reaso n for Exam Hyperlipidemia;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 Reason for Exam Gout Performed By: #### T SH3, LDLD, CMP, URIC, LIPID #### [facility] [address] Triglyceride w/Reflex 497 mg/dL High 0-149 [facility] Comment on above: Order Comment: [...] T SH3, LDLD, CMP, URIC, LIPID #### [facility] [address] VLDL CHOLESTEROL 99 mg/dL Normal [facility] Comment on above: Order Comment: Reaso n for Exam Hyperlipidemia;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 Reason for Exam Gout Performed By: #### T SH3, LDLD, CMP, URIC, LIPID #### [facility] [address] [place] [address] [place] Lymphocytes Auto (Bld) [#/Vo l]Ordered By: Jenaro Lynch on 09-27-2022 Lymphocytes (Bld) [#/Vol] 2.3 10*3/uL 1.00-4.8 [facility] Lymphocytes/100 WBC Auto (Bl d)Ordered By: Jenaro Lynch on 09-27-2022 Lymphocytes/100 WBC (Bld) 18.2 % . [facility] MCH Auto (RBC) [Entitic mass ]Ordered By: Jenaro Lynch on 09-27-2022 MCH (RBC) [Entitic mass] 23.9 pg 27.5-35.2 [facility] MCHC Auto (RBC) [Mass/Vol]Or dered By: Jenaro Lynch on 09-27-2022 MCHC (RBC) [Mass/Vol] 32.2 g/dL 32.5-35.6 [facility] MCV Auto (RBC) [Entitic vol] Ordered By: Jenaro Lynch on 09-27-2022 MCV (RBC) [Entitic vol] 74.3 fL 83.5-101 [facility] Monocytes Auto (Bld) [#/Vol] Ordered By: Jenaro Lynch on 09-27-2022 Monocytes (Bld) [#/Vol] 1.0 10*3/uL 0.0-0.8 [facility] Monocytes/100 WBC Auto (Bld) Ordered By: Jenaro Lynhc on 09-27-2022 Monocytes/100 WBC (Bld) 7.9 % . [facility] Neutrophils Auto (Bld) [#/Vo l]Ordered By: Jenaro Lynch on 09-27-2022 Neutrophils (Bld) [#/Vol] 8.3 10*3/uL 1.8-7.7 [facility] Neutrophils/100 WBC Auto (Bl d)Ordered By: Jenaro Lynch on 09-27-2022 Neutrophils/100 WBC (Bld) 66.9 % . [facility] No Panel InformationOrdered By: Jenaro Lynch on 09-27-2022 Estimated GFR (CKD-EPI) 42.232 mL/Min [facility] Creatinine Clearance (Chem N/A [facility] Nucleated erythrocytes [Pres ence] in Blood by Automated countOrdered By: Jenaro Lynch on 09-27-2022 Nucleated RBC Auto Ql (Bld) 0.1 /100{WBC} 0-0.5 [facility] Platelet mean volume Auto (B ld) [Entitic vol]Ordered By: Jenaro Lynch on 09-27-2022 Platelet mean volume (Bld) [Entitic vol] 9.1 fL 6.6-10.1 [facility] Platelets Auto (Bld) [#/Vol] Ordered By: Jenaro Lynch on 09-27-2022 Platelets (Bld) [#/Vol] 209 10*3/uL 150-450 [facility] Potassium [Moles/volume] in Serum or PlasmaOrdered By: Jenaro Lynch on 09-27-2022 Potassium [Moles/Vol] 4.3 mmol/L 3.5-5.1 [facility] Protein [Mass/volume] in Ser um or PlasmaOrdered By: Jenaro Lynch on 09-27-2022 Protein [Mass/Vol] 7.0 g/dL 6.4-8.9 [facility] RBC Auto (Bld) [#/Vol]Ordere d By: Jenaro Lynch on 09-27-2022 RBC (Bld) [#/Vol] 5.52 10*6/uL 3.90-5.60 [facility] Serum or plasma albumin/glob ulin mass ratioOrdered By: Jenaro Lynch on 09-27-2022 Albumin/Globulin [Mass ratio] 1.4 {ratio} [facility] Serum or plasma anion gap de terminationOrdered By: Jenaro Lynch on 09-27-2022 Anion gap [Moles/Vol] 14.1 mmol/L 6.0-15.0 [facility] Serum or plasma high density lipoprotein (HDL) cholesterol measurementOrdered By: Jenaro Lynch on 09-27-2022 Cholesterol in HDL [Mass/Vol] 21 mg/dL 29-71 [facility] Comment on above: HDL CHOL ATP-III CLA SSIFICATION Cardiovascular RiskHDL > or equal to 60 mg/dL LOWHDL < 40 mg/dL HIGH Serum or plasma total choles terol/high density lipoprotein (HDL) cholesterol mass ratOrdered By: Jenaro Lynch on 09-27-2022 Cholesterol.total/Chol esterol in HDL [Mass ratio] 5.0 {ratio} <5.0 [facility] Sodium [Moles/volume] in Ser um or PlasmaOrdered By: Jenaro Lynch on 09-27-2022 Sodium [Moles/Vol] 136 mmol/L 136-145 [facility] Thyroid Stimulating Hormoneo n 09-27-2022 TSH Qn 3.62 m[IU]/L Normal 0.45-5.33 [facility] Comment on above: Order Comment: Reaso n for Exam Hyperlipidemia;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 Reason for Exam Gout Result Comment: PERF ORMED BY: [facility] [address] [place] [address] PATHOLOGIST [employer]NA[employer] CLIFFORD LOBATO M.D. Performed By: #### T SH3, LDLD, CMP, URIC, LIPID #### [facility] [address] Order Comment: Reaso n for Exam Hyperlipidemia;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 Reason for Exam Gout Performed By: #### T SH3, LDLD, CMP, URIC, LIPID ####[facility] [id number] Thyrotropin [Units/volume] i n Serum or PlasmaOrdered By: Jenaro Lynch on 09-27-2022 TSH Qn 3.62 m[IU]/L 0.45-5.33 [facility] Triglyceride [Mass/volume] i n Serum or PlasmaOrdered By: Jenaro Lynch on 09-27-2022 Triglyceride [Mass/Vol] 497 mg/dL 0-149 [facility] Comment on above: If the triglyceride result [...] on 09-27-2022 Urate [Mass/Vol] 6.2 mg/dL 2.4-7.6 [facility] Urea nitrogen [Mass/volume] in Serum or PlasmaOrdered By: Jenaro Lynch on 09-27-2022 Urea nitrogen [Mass/Vol] 15 mg/dL 12-27 [facility] Uric Acidon 09-27-2022 Urate [Mass/Vol] 6.2 mg/dL Normal 2.4-7.6 [facility] Comment on above: Order Comment: Reaso n for Exam Hyperlipidemia;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 Reason for Exam Gout Performed By: #### T SH3, LDLD, CMP, URIC, LIPID #### [address] WBC Auto (Bld) [#/Vol]Ordere d By: Jenaro Lynch on 09-27-2022 WBC (Bld) [#/Vol] 12.4 10*3/uL 4.1-10.5 [facility] MR head/brain wo conon 09-03 MR head/brain wo con [facility] [address] [place] [address] MRI Report Signed Patient: Solomon Feldman SR MR#: [id number] : 1965 Acct:[id number] Age/Sex: 57 / M ADM Date: 09/02/22 Loc: MR Room: Type: [facility] Attending Dr: Shana Mclaughlin PA-C Copies [...] 09/03/22 0830 Signed By: 09/03/22 0837 Normal [facility] A1C HEMOGLOBINon 02-15-2022 HbA1c (Bld) [Mass fraction] % [employer] Other HbA1c (Bld) [Mass fraction]o n 02-15-2022 A1C HEMOGLOBIN [employer] Other Tobacco Screening.on 022 Adult depression screening assessment No -[facility] [facility] [address] DO Work Phone: Tobacco use status [facility] b) No [facility] [facility] [address] DO Work Phone: A1C HEMOGLOBINon 07-27-2021 HbA1c (Bld) [Mass fraction] 11.8 % [employer] Other HbA1c (Bld) [Mass fraction]o n 07-27-2021 A1C HEMOGLOBIN [employer] Other Vital Signs Date Time Vital Sign Value Performing Clinician Facility 07-12-2023 18:03-0500 Diastolic blood pressure 73 mm[Hg] DO Jenaro Jetts Work Phone: [facility] 07-12-2023 18:03-0500 Heart rate 76 /min DO Jenaro Jetts Work Phone: [facility] 07-12-2023 18:03-0500 Respiratory rate 20 /min DO Jenaro Kuns Work Phone: [facility] 07-12-2023 18:03-0500 SaO2% (BldA) [Mass fraction] 98 % DO Jenaro Kuns Work Phone: [facility] 07-12-2023 18:03-0500 Systolic blood pressure 125 mm[Hg] DO Jenaro Kuns Work Phone: [facility] 07-12-2023 16:15-0500 Body height 182.88 cm DO Jenaro Kuns Work Phone: [facility] 07-12-2023 16:15-0500 Body temperature 98.9 [degF] DO Jenaro Fraustojoe Work Phone: [facility] 07-12-2023 16:15-0500 Body weight 99.25 kg DO Jenarogorge Lynch Work Phone: [facility] 06-02-2023 10:56-0500 Blood Pressure Location Yeyo SILVESTRE [...] Body height 180.34 cm Jenaro Lynch Other [employer] [facility] [employer] Other 04-06-2023 13:15-0400 Body mass index (BMI) [Ratio] 29.43 kg/m2 Jenaro Lynch Other [employer] Other 04-06-2023 13:15-0400 Body weight 95.71 kg Jenaro Lynch Other [employer] Other 04-06-2023 13:15-0400 Diastolic blood pressure 70 mm[Hg] Jenaro Lynch Other [employer] Other 04-06-2023 13:15-0400 Respiratory rate 18 /min Jenaro Lynch Other [employer] Other 04-06-2023 13:15-0400 SaO2% (BldA) [Mass fraction] 97 % Jenaro Lynch Other [employer] Other 04-06-2023 13:15-0400 Systolic blood pressure 100 mm[Hg] Jenaro Lynch Other [employer] Other 03-15-2023 08:30-0400 Body height 180.34 cm Jenaro Lynch Other [employer] Other 03-15-2023 08:30-0400 Body mass index (BMI) [Ratio] 29.01 kg/m2 Jenaro Syed Other [employer] Other 03-15-2023 08:30-0400 Body weight 94.35 kg Jenaro Syed Other [employer] Other 03-15-2023 08:30-0400 Diastolic blood pressure 62 mm[Hg] Jenaro Lynch Other [employer] Other 03-15-2023 08:30-0400 Respiratory rate 16 /min Jenaro Lynch Other [employer] Other 03-15-2023 08:30-0400 SaO2% (BldA) [Mass fraction] 97 % Jenaro Lynch Other [employer] Other 03-15-2023 08:30-0400 Systolic blood pressure 88 mm[Hg] Jenaro Lynch Other [facility] [employer] Other 02-15-2023 10:04-0400 Body height 182.88 cm Jenaro Lynch Work Phone: [facility] 250 DO Work Phone: 02-15-2023 10:04-0400 Body mass index (BMI) [Ratio] 28.62 kg/m2 Jenaro Lynch Work Phone: [facility] 250 DO Work Phone: 02-15-2023 10:04-0400 Body surface area Derived from formula 2.18 m2 Jenaro Lynch Work Phone: [facility] 250 DO Work Phone: 02-15-2023 10:04-0400 Body weight 95.71 kg Jenaro Lynch Work Phone: [facility] 250 DO Work Phone: 02-15-2023 10:04-0400 Diastolic blood pressure 70 mm[Hg] Jenaro Lynch Work Phone: [facility] 250 DO Work Phone: 02-15-2023 10:04-0400 Heart rate 76 /min Jenaro Lynch Work Phone: [facility] 250 DO Work Phone: 02-15-2023 10:04-0400 Systolic blood pressure 102 mm[Hg] Jenaro Lynch Work Phone: [facility] 250 DO Work Phone: 01-30-2023 10:23-0400 Blood Pressure Location Yeyo SILVE[facility]RE [facility] 01-30-2023 10:23-0400 Diastolic blood pressure 74 mm[Hg] Yeyo SILVE[facility]RE [facility] 01-30-2023 10:23-0400 Heart rate 68 /min Yeyo SILVESTRE [facility] 01-30-2023 10:23-0400 Respiratory rate 16 /min Yeyo SILVESTRE [facility] 01-30-2023 10:23-0400 Systolic blood pressure 130 mm[Hg] Yeyo SILVESRTE [facility] 01-11-2023 15:08-0400 Body height 180.34 cm Jenaro Lynch Work Phone: [facility] 600 DO Work Phone: 01-11-2023 15:08-0400 Body mass index (BMI) [Ratio] 30.13 kg/m2 Jenaro Lynch Work Phone: [facility] 600 DO Work Phone: 01-11-2023 15:08-0400 Body surface area Derived from formula 2.18 m2 Jenaro Lynch Work Phone: [facility] 600 DO Work Phone: 01-11-2023 15:08-0400 Body weight 97.98 kg Jenaro Lynch Work Phone: [facility] 600 DO Work Phone: 01-11-2023 15:08-0400 Diastolic blood pressure 86 mm[Hg] Jenaro Lynch Work Phone: [facility] 600 DO Work Phone: 01-11-2023 15:08-0400 Heart rate 74 /min Jenaro Lynch Work Phone: [facility] [employer] 600 DO Work Phone: 01-11-2023 15:08-0400 Systolic blood pressure 122 mm[Hg] Jenaro Lynch Work Phone: [facility] [employer] 600 DO Work Phone: 12-01-2022 12:45-0400 Body height 180.34 cm Jenaro Lynch Other [employer] Other 12-01-2022 12:45-0400 Body mass index (BMI) [Ratio] 29.73 kg/m2 Jenaro Lynch Other [employer] Other 12-01-2022 12:45-0400 Body weight 96.71 kg Jenaro Lynch Other [employer] Other 12-01-2022 12:45-0400 Diastolic blood pressure 70 mm[Hg] Jenaro Lynch Other [employer] Other 12-01-2022 12:45-0400 Respiratory rate 18 /min Jenaro Lynch Other [employer] Other 12-01-2022 12:45-0400 SaO2% (BldA) [Mass fraction] 94 % Jenaro Lynch Other [employer] Other 12-01-2022 12:45-0400 Systolic blood pressure 122 mm[Hg] Jenaro Lynch Other [employer] Other 11-23-2022 11:38-0400 Blood Pressure Location Yeyo SILVESTRE [facility] 11-23-2022 11:38-0400 Diastolic blood pressure 85 mm[Hg] Yeyo SILVESTRE [facility] 11-23-2022 11:38-0400 Heart rate 76 /min Yeyo SILVESTRE [facility] 11-23-2022 11:38-0400 Systolic blood pressure 130 mm[Hg] Yeyo SILVESTRE [facility] 07-04-2022 10:30-0500 Body height 180.34 cm Jenaro Lynch Other [facility] [facility] [employer] Other 07-04-2022 10:30-0500 Body mass index (BMI) [Ratio] 29.43 kg/m2 Jenaro Lynch Other [employer] Other 07-04-2022 10:30-0500 Body weight 95.71 kg Jenaro Lynch Other [employer] Other 07-04-2022 10:30-0500 Diastolic blood pressure 86 mm[Hg] Jenaro Lynch Other [employer] Other 07-04-2022 10:30-0500 Respiratory rate 16 /min Jenaro Lynch Other [employer] Other 07-04-2022 10:30-0500 Systolic blood pressure 146 mm[Hg] Jenaro Lynch Other [employer] Other 02-15-2022 13:45-0400 Body height 180.34 cm Jenaro Lynch Other [employer] Other 02-15-2022 13:45-0400 Body mass index (BMI) [Ratio] 30.12 kg/m2 Jenaro Lynch Other [employer] Other 02-15-2022 13:45-0400 Body weight 97.98 kg Jenaro Lynch Other [employer] Other 02-15-2022 13:45-0400 Diastolic blood pressure 62 mm[Hg] Jenaro Syed Other [employer] Other 02-15-2022 13:45-0400 Respiratory rate 16 /min Jenaro Lynch Other [employer] Other 02-15-2022 13:45-0400 SaO2% (BldA) [Mass fraction] 96 % Jenaro Lynch Other [employer] Other 02-15-2022 13:45-0400 Systolic blood pressure 100 mm[Hg] Jenaro Syed Other [employer] Other 10-26-2021 10:01-0400 Body height 180.34 cm Jenaro Guerra Syed Work Phone: [facility] [employer] [address] DO Work Phone: 10-26-2021 10:01-0400 Body mass index (BMI) [Ratio] 29.99 kg/m2 Jenaro Guerra Syed Work Phone: [facility] [place] [employer] 250 DO Work Phone: 10-26-2021 10:01-0400 Body surface area Derived from formula 2.17 m2 Jenaro Fraustojoe Work Phone: [facility] [place] [employer] 250 DO Work Phone: 10-26-2021 10:01-0400 Body weight 97.52 kg Jenaro Fraustojoe Work Phone: [facility] [employer] 250 DO Work Phone: 10-26-2021 10:01-0400 Diastolic blood pressure 70 mm[Hg] Jenarogorge Lynch Work Phone: [facility] [employer] 250 DO Work Phone: 10-26-2021 10:01-0400 Heart rate 68 /min Jenarogorge Lynch Work Phone: [facility] [employer] 250 DO Work Phone: 10-26-2021 10:01-0400 Systolic blood pressure 104 mm[Hg] Jenarogorge Lynch Work Phone: [facility] [employer] [place] 250 DO Work Phone: 10-19-2021 12:20-0400 Body height 180.34 cm Amina [employer] Other [employer] Other 10-19-2021 12:20-0400 Body mass index (BMI) [Ratio] 30.65 kg/m2 [employer] Other [employer] Other 10-19-2021 12:20-0400 Body temperature 96.8 [degF] Amina [employer] Other [employer] Other 10-19-2021 12:20-0400 Body weight 99.7 kg [employer] Other [employer] Other 10-19-2021 12:20-0400 Diastolic blood pressure 71 mm[Hg] [employer] Other [employer] Other 10-19-2021 12:20-0400 Respiratory rate 18 /min [employer] Other [employer] Other 10-19-2021 12:20-0400 SaO2% (BldA) [Mass fraction] 98 % Amina Fagan Other [employer] Other 10-19-2021 12:20-0400 Systolic blood pressure 111 mm[Hg] Amina Fagan Other [employer] Other 07-27-2021 14:00-0500 Body height 180.34 cm Jenaro Lynch Other [employer] Other 07-27-2021 14:00-0500 Body mass index (BMI) [Ratio] 30.4 kg/m2 Jenaro Lynch Other [employer] Other 07-27-2021 14:00-0500 Body weight 98.88 kg Jenaro Lynch Other [employer] Other 07-27-2021 14:00-0500 Diastolic blood pressure 76 mm[Hg] Jenaro Lynch Other [employer] Other 07-27-2021 14:00-0500 Respiratory rate 18 /min Jenaro Lynch Other [employer] Other 07-27-2021 14:00-0500 SaO2% (BldA) [Mass fraction] 98 % Jenaro Lynch Other [employer] Other 07-27-2021 14:00-0500 Systolic blood pressure 112 mm[Hg] Jenaro Lynch Other [employer] Other Encounters Encounter Date Encounter Type Care Provider Facility Start: 09-08-2023 ambulatory Yeyo Ley ty:[facility] [place] Start: 07-31-2023 ambulatory Shana Mclaughlin Facility:[facility] Start: 07-12-2023 End: 07-12-2023 Emergency department patient visit Jenaro Lynch Facility:[facility] Start: 07-12-2023 End: 07-12-2023 Emergency department patient visit DO Jenaro Lynch Work Phone: [facility] Work Phone: Start: 07-07-2023 End: 07-07-2023 ambulatory Jenaro Lynch Other [employer] Other Start: 07-07-2023 Telephone encounter Jenaro Syed [facility] Start: 07-03-2023 End: 07-04-2023 ambulatory Yeyo SILVESTRE Facility:[facility] [place] Start: 06-26-2023 End: 06-26-2023 ambulatory Jenaro Lynch Other [employer] Other Start: 06-26-2023 Telephone encounter [facility]ed [facility] Start: 06-02-2023 End: 06-03-2023 ambulatory Yeyo SILVESTRE Facility:[facility] Start: 06-02-2023 End: 06-02-2023 Patient encounter procedure Yeyo SILVESTRE [facility] Start: 05-16-2023 End: 05-16-2023 ambulatory Jenaro Jettjoe Other [employer] Other Start: 05-16-2023 Telephone encounter Jenaro Lynch [facility] Start: 05-03-2023 End: 05-04-2023 ambulatory Yeyo SILVESTRE [facility] [place] Start: 05-03-2023 End: 05-03-2023 Patient encounter procedure Yeyo SILVESTRE [facility] [place] Start: 04-28-2023 End: 04-28-2023 ambulatory Jenaro Fraustojoe Other [employer] Other Start: 04-28-2023 Telephone encounter Jenarogorge Lynch [facility] [place] Start: 04-18-2023 End: 04-19-2023 ambulatory Yeyo SILVESTRE Facility:[facility] [place] Start: 04-18-2023 End: 04-18-2023 Patient encounter procedure Yeyo SILVESTRE [facility] [place] Start: 04-17-2023 ambulatory Yeyo Ruizi ty:[facility] [place] Start: 04-13-2023 End: 04-14-2023 ambulatory Yeyo SILVESTRE Facility:[id number] Start: 04-11-2023 End: 04-11-2023 ambulatory Jenaro Fraustojoe Other [employer] Other Start: 04-11-2023 Telephone encounter Jenarogorge Lynch [facility] [place] Start: 04-06-2023 End: 04-06-2023 ambulatory Jenaro Jettjoe Other [employer] Other Start: 04-06-2023 Encounter for other preprocedural examination Jenaro Lynch [facility] [place] Start: 04-06-2023 Office outpatient vi sit 25 minutes Jenaro Lynch [facility] [place] Start: 03-28-2023 End: 03-28-2023 ambulatory Jenarogorge Lynch Other [employer] Other Start: 03-28-2023 Telephone encounter Jenarogorge Lynch [facility] [place] Start: 03-20-2023 ambulatory Yeyo SILVESTRE Facili ty:[facility] [place] Start: 03-16-2023 ambulatory Yeyo SILVESTRE Facili ty:[id number] Start: 03-15-2023 End: 03-15-2023 ambulatory Jenaro Lynch Other [place] [employer] Other Start: 03-15-2023 Office outpatient vi sit 25 minutes Jenaro Lynch [facility] Start: 03-10-2023 End: 03-10-2023 ambulatory Jenaro Lynch Other [facility] [employer] Other Start: 03-10-2023 Telephone encounter Jenaro Lynch [facility] Start: 02-15-2023 Office outpatient vi sit 15 minutes Jenaro Lynch Work Phone: [facility] 250 DO Work Phone: Start: 02-15-2023 ambulatory Dolores Feldman Facility:[id number] Start: 02-14-2023 End: 02-15-2023 ambulatory Yeyo SILVESTRE Facility:[facility] Start: 02-14-2023 End: 02-14-2023 Patient encounter procedure Yeyo SILVESTRE [facility] Start: 02-08-2023 End: 02-09-2023 ambulatory Yeyo SILVESTRE Facility:[facility] Start: 02-08-2023 End: 02-08-2023 Patient encounter procedure Yeyo SILVESTRE [facility] Start: 01-30-2023 End: 01-31-2023 ambulatory Yeyo SILVESTRE Facility:[facility] Start: 01-30-2023 End: 01-30-2023 Patient encounter procedure Yeyo SILVESRTE [facility] Start: 01-25-[address] Jenaro Lynch Facility:[id number] Start: 01-17-2023 End: 01-17-2023 ambulatory Jenaro Lynch Other [facility] [employer] Other Start: 01-17-2023 Telephone encounter Jenaro Lynch [facility] [place] Start: 01-11-2023 Office outpatient vi sit 25 minutes Jenaro Lynch Work Phone: [facility] 600 DO Work Phone: Start: 01-11-2023 ambulatory Dolores Feldman Facility:[id number] Start: 12-28-2022 End: 12-29-2022 ambulatory Yeyoneel SILVESTRE Facility:[facility] [place] Start: 12-28-2022 End: 12-28-2022 Patient encounter procedure Yeyo R SILVESTRE [facility] [place] Start: 12-21-2022 ambulatory Yeyo R SOLEDAD Facili ty:[facility] Start: 12-01-2022 End: 12-01-2022 ambulatory Jenaro Lynch Other [facility] [employer] Other Start: 12-01-2022 Office outpatient vi sit 25 minutes Jenaro Lynch [facility] Start: 11-30-2022 ambulatory Yeyo SOLEDAD Facility :[facility] [place] Start: 11-23-2022 End: 11-24-2022 ambulatory Yeyo R SOLEDAD Facility:[facility] [place] Start: 11-23-2022 End: 11-23-2022 Patient encounter procedure Yeyo R SOLEDAD [facility] [place] Start: 10-07-2022 End: 10-07-2022 ambulatory Jenaro Lynch Other [employer] Other Start: 10-07-2022 Telephone encounter Jenaro Lynch [facility] [place] Start: 09-27-2022 End: 09-27-2022 ambulatory Jenaro Lynch - [facility] Facility:[facility] Start: 09-27-2022 End: 09-27-2022 ambulatory DO Jenaro Lynch Work Phone: [facility] Work Phone: Start: 09-27-2022 End: 09-27-2022 Patient encounter procedure DO Jenaro Lynch Work Phone: [facility] Work Phone: Start: 09-21-2022 End: 09-21-2022 ambulatory Jenaro Lynch Other [employer] Other Start: 09-21-2022 Telephone encounter Jenaro Lynch [facility] [place] Start: 09-14-2022 End: 09-14-2022 ambulatory Jenaro Lynch Other [employer] Other Start: 09-14-2022 Telephone encounter Jenaro Lynch [facility] [place] Start: 09-02-2022 End: 09-02-2022 ambulatory Shana Mclaughlin Facility:[facility] Start: 09-02-2022 End: 09-02-2022 Patient encounter procedure DO Jenaro Lynch Work Phone: [facility] Work Phone: Start: 08-25-2022 End: 08-25-2022 ambulatory Doris Montserrat Other [employer] Other Start: 08-25-2022 Telephone encounter Doris Barnes [facility] Start: 08-22-2022 End: 08-22-2022 ambulatory Jenaro Lynch Other [employer] Other Start: 08-22-2022 Telephone encounter Jenaro Lynch [facility] [place] Start: 08-05-2022 End: 08-05-2022 ambulatory Jenaro Lynch Other [employer] Other Start: 08-05-2022 Telephone encounter Jenaro Lynch [facility] [place] Start: 08-04-2022 End: 08-04-2022 ambulatory Jenaro Lynch Other [employer] Other Start: 08-04-2022 Telephone encounter Jenaro Lynch [facility] [place] Start: 07-28-2022 End: 07-28-2022 ambulatory Jenaro Fraustojoe Other [employer] Other Start: 07-28-2022 Telephone encounter Jenaor Lynch [facility] Start: 07-25-2022 End: 07-25-2022 ambulatory Jenaro Lynch Other [employer] Other Start: 07-25-2022 Nursing evaluation o f patient and report Jenaro Lynch [facility] [place] Start: 07-19-2022 End: 07-19-2022 ambulatory Jenaro Lynch Other [employer] Other Start: 07-19-2022 Telephone encounter Jenaro Lynch [facility] [place] Start: 07-15-2022 End: 07-15-2022 ambulatory Jenaro Lynch Other [employer] Other Start: 07-15-2022 Telephone encounter Jenaro Lynch [facility] [place] Start: 07-13-2022 End: 07-13-2022 ambulatory Jenaro Lynch Other [employer] Other Start: 07-13-2022 Nursing evaluation o f patient and report Jenaro Lynch [facility] [place] Start: 07-12-[address] Raulito Kennedy II Facility: Start: 07-05-2022 End: 07-05-2022 ambulatory Jenaro Lynch Other [employer] Other Start: 07-05-2022 Telephone encounter Jenaro Lynch [facility] [place] Start: 07-05-2022 Rx Renewal Jenaro Lynch Work Phone: [facility] 250 DO Work Phone: Start: 07-04-2022 End: 07-04-2022 ambulatory Jenaro Lynch Other [place] [employer] Other Start: 07-04-2022 Office outpatient vi sit 25 minutes Jenaro Lynch [facility] [place] Start: 06-30-2022 End: 06-30-2022 ambulatory Jenaro Lynch Other [place] [employer] Other Start: 06-30-2022 Telephone encounter Jenaro Lynch [facility] [place] Start: 05-25-2022 End: 05-25-2022 ambulatory Jenaro Lynch Other [place] [employer] Other Start: 05-25-2022 Telephone encounter Jenaro Lynch [facility] [place] Start: 04-25-2022 End: 04-25-2022 ambulatory Jenaro Lynch Other [employer] Other Start: 04-25-2022 Telephone encounter Jenaro Lynch [facility] [place] Start: 04-19-2022 End: 04-19-2022 ambulatory Jenaro Lynch Other [employer] Other Start: 04-19-2022 Telephone encounter Jenaro Lynch [facility] [place] Start: 03-22-2022 End: 03-22-2022 ambulatory Jenaro Lynch Other [employer] Other Start: 03-22-2022 Telephone encounter Jenaro Lynch [facility] [place] Start: 03-01-2022 End: 03-01-2022 ambulatory Jenaro Lynch Other [employer] Other Start: 03-01-2022 Telephone encounter Jenaro Lynch [facility] [place] Start: 02-18-2022 End: 02-18-2022 ambulatory Jenaro Lynch Other [employer] Other Start: 02-18-2022 Telephone encounter Jenaro Lynch [facility] [place] Start: 02-15-2022 End: 02-15-2022 ambulatory Verona Whaley Other [employer] Other Start: 02-15-2022 Office outpatient vi sit 25 minutes Jenaro Lynch [facility] [place] Start: 02-15-2022 Telephone encounter Verona Whaley [facility] Start: 01-21-2022 End: 01-21-2022 ambulatory Jenaro Lynch Other [employer] Other Start: 01-21-2022 Telephone encounter Jenaro Lynch [facility] [place] Start: 01-19-2022 End: 01-19-2022 ambulatory Jenaro Lynch Other [employer] Other Start: 01-19-2022 Telephone encounter Jenaro Lynch [facility] [place] Start: 01-13-2022 End: 01-13-2022 ambulatory Jenaro Lynch Other [employer] Other Start: 01-13-2022 Telephone encounter Jenaro Lynch [facility] [place] Start: 12-23-2021 End: 12-23-2021 ambulatory Jenaro Lynch Other [employer] Other Start: 12-23-2021 Telephone encounter Jenaro Lynch [facility] [place] Start: 11-24-2021 End: 11-24-2021 ambulatory Jenaro Lynch Other [employer] Other Start: 11-24-2021 Telephone encounter Jenaro Lynch [facility] [place] Start: 11-03-2021 Rx Renewal Jenaro Lynch Work Phone: [facility] 250 DO Work Phone: Start: 10-26-2021 Office outpatient vi sit 25 minutes Jenaro Lynch Work Phone: [facility] 250 DO Work Phone: Start: 10-25-2021 End: 10-25-2021 ambulatory Jenaro Lynch Other [employer] Other Start: 10-25-2021 Telephone encounter Jenaro Lynch [facility] [place] Start: 10-19-2021 End: 10-19-2021 ambulatory Azjuan Chavodariuss Other [employer] Other Start: 10-19-2021 Office outpatient vi sit 25 minutes Aziz Bakhous [facility] Start: 10-18-2021 End: 10-18-2021 ambulatory Aziz Bakhous Other [employer] Other Start: 10-18-2021 Telephone encounter Aziz Bakhous [facility] Start: 10-12-2021 End: 10-13-2021 ambulatory DUARTE HENRY . Facility: Start: 10-08-2021 End: 10-08-2021 ambulatory Jenaro Lynch Other [employer] Other Start: 10-08-2021 Telephone encounter Jenaro Lynch [facility] [place] Start: 09-22-2021 End: 09-22-2021 ambulatory Jenaro Lynch Other [employer] Other Start: 09-22-2021 Telephone encounter Jenaro Lynch [facility] [place] Start: 09-21-2021 End: 09-21-2021 ambulatory Jenaro Lynch Other [employer] Other Start: 09-21-2021 Telephone encounter Jenaro Lynch [facility] [place] Start: 08-09-2021 End: 08-09-2021 ambulatory Jenaro Lynch Other [employer] Other Start: 08-09-2021 Telephone encounter Jenaro Lynch [facility] [place] Start: 08-02-2021 End: 08-02-2021 ambulatory Jenaro Lynch Other [employer] Other Start: 08-02-2021 Telephone encounter Jenaro Lynch [facility] [place] Start: 07-27-2021 End: 07-27-2021 ambulatory Jenaro Lynch Other [employer] Other Start: 07-27-2021 Office outpatient vi sit 25 minutes Jenaro Lynch [facility] [place] Start: 06-23-2021 End: 06-23-2021 ambulatory Jenaro Lynch Other [employer] Other Start: 06-23-2021 Telephone encounter Jenaro Lynch [facility] Start: 06-22-2021 Rx Renewal Jenaro Lynch Work Phone: [place] [address] DO Work Phone: Start: 05-03-2021 End: 05-03-2021 ambulatory Jenaro Lynch Other [employer] Other Start: 05-03-2021 Telephone encounter Jenaro Lynch [facility] [place] Procedures Date Procedure Procedure Detail Performing Clinician [...] above: nerve ablation; Procedure on back Yeyo DOSIH Scrotum and testicle operation Jenarogorge Lynch Work Phone: Plan of Treatment Date Care Activity Detail Author Start: 11-15-2023 FUV, Provider: Raulito Kennedy, Status: Pen, Time: 2:40 PM FUV, Provider: Raulito Kennedy, Status: Umer, Time: 2:40 PM [facility] [place] 250 DO Work Phone: Start: 07-12-2023 Duplex scan of lower limb veins US venous duplex LE BI [facility] Start: 07-12-2023 US Lower extremity v ein - bilateral [facility] Start: 07-12-2023 Duplex scan veins of upper limb US venous duplex UE LT [facility] Start: 07-12-2023 US Upper extremity v ein - left [facility] Start: 02-15-2023 FUV, Provider: Dolores Velazquez, Status: Pen, Time: 10:00 AM FUV, Provider: Dolores Velazquez, Status: Pen, Time: 10:00 AM -[facility] 600 DO Work Phone: Start: 01-25-2023 STRESS NUC, Provider : CHARISSE HHVI NUCLEAR 01,[id number], Status: Pen, Time: 8:30 AM STRESS NUC, Provider: CHARISSE HHVI NUCLEAR 01,[id number], Status: Pen, Time: 8:30 AM -[facility] 600 DO Work Phone: Start: 07-12-2022 FUV, Provider: Raulito Kennedy, Status: Pen, Time: 9:20 AM FUV, Provider: Raulito Kennedy, Status: Pen, Time: 9:20 AM -[facility] 250 DO Work Phone: Start: 10-26-2021 FUV, Provider: Raulito Kennedy, Status: Pen, Time: 9:30 AM FUV, Provider: Raulito Kennedy, Status: Pen, Time: 9:30 AM -[facility] 250 DO Work Phone: Patient Education Dependent Edema (DC) [facility] Work Phone: Patient referral [facility] Work Phone: Immunizations Immunization Date [...] 01-14-2019 influenza, seasonal, injectable Jenaro Lynch Other [employer] Other 01-14-2019 influenza virus vaccine, unspecified formulation Yeyo SILVESTRE [facility] 04-02-2018 influenza virus vaccine, unspecified formulation Yeyo SILVESTRE [facility] 04-02-2018 influenza, injectabl e, quadrivalent, preservative free DO Jenaro Lynch Work Phone: [facility] 03-05-2018 influenza virus vaccine, unspecified formulation Jenaro [...] quadrivalent, preservative free Jenaro Lynch Work Phone: [facility] 600 DO Work Phone: 02-22-2016 pneumococcal polysaccharide vaccine, 23 valent Jenaro P Kuns Work Phone: [facility] Payers Date Payer Category Payer Self-pay [id number] 2022 Medicaid [id number] 1965 Unknown [id number] 2.16.84 0.1.922676.3.579.2.593 1965 Unknown [id number] 2.16.8 40.1.115311.3.579.2.1068 1965 Unknown [id number] 2.16. 840.1.889898.3.579.2.356 1965 Unknown [id number] 2.16. 840.1.511422.3.579.2.356 1965 Unknown [id number] 2.16. 840.1.071950.3.579.2.356 1965 Unknown [id number] 2.16.8 40.1.863084.3.579.2. 1965 Unknown [id number] 2.16.8 40.1.675704.3.579.2. 1965 Unknown [id number] 2.16.8 40.1.245214.3.579.2. 1965 Unknown [id number] 2.16.8 40.1.620589.3.579.2 1965 Unknown [id number] 2.16.8 40.1.338039.3.579.2. 1965 Unknown [id number] 2.16.8 40.1.562251.3.579.2. 1965 Unknown [id number] 2.16.8 40.1.966459.3.579.2. 1965 Unknown [id number] 2.16.8 40.1.735856.3.579.2.72 1965 Unknown [id number] 2.16.8 40.1.542536.3.579.2. 1965 Unknown [id number] 2.16.8 40.1.863145.3.579.2.72 1965 Unknown [id number] 2.16.8 40.1.276069.3.579.2. 1965 Unknown [id number] 2.16.8 40.1.847105.3.579.2. 1965 Unknown [id number] 2.16.8 40.1.585848.3.579.2 1965 Unknown [id number] 2.16.8 40.1.073327.3.579.2.727 1965 Unknown [id number] 2.16.8 40.1.360706.3.579.2.727 1959 Unknown [id number] 2.1 6.840.1.281914.19 Unknown [employer] Unknown [id number] 2.16.8 40.1.713427.3.579.2.531 Unknown [id number] 2.16.8 40.1.424996.3.579.2.531 Unknown [id number] 2.16.8 40.1.409288.3.579.2.531 Unknown [id number] 2.16.8 40.1.174702.3.579.2.531 Social History Date Type Detail Facility Caffeine use Caffeine use [employer] Other Comment on above: 2 cups coffee, 4-6 c ups tea daily, occaional soda; qauit 07/2020; Sex Assigned At [facility] Start: 07-14-2020 End: 07-12-2023 Tobacco smoking status NHIS Smoker (finding) [facility] Start: 1965 Sex Assigned At Male F [facility] Start: 11-23-2022 End: 06-02-2023 Tobacco smoking status Heavy tobacco smoker (finding) [facility] Tobacco smoking status Never [facility] Medical Equipment Procedure Code Equipment Code Equipment Origin al Text Equipment Identifier Dates Aortogram, abdominal, with bilateral lower extremity runoff IR STENT SMART 10 X 80 120 CM FDA Start: 09-27-2018 Aortogram, abdominal, with bilateral lower extremity runoff IR STENT SMART 10 X 80 120 CM FDA Start: 09-27-2018 Start: 12-16-2013 Bare-metal bilia ry stentMultiple peripheral artery stent, bare-metal ([id number] FDA Start: 07-14-2020 Functional Status Date Assessment Result Facility 06-02-2023 Functional Status N/A [facility] 02-14-2023 Functional Status N/A [facility] 01-30-2023 Functional Status N/A [facility] 11-23-2022 Functional Status N/A [facility] Clinical Notes 06-23-2021 to 06-26-2023 Note Date & Type Note Facility 06-26-2023 Evaluation note Encounter Date Diagnosis Assessment Notes Jun, Hyperlipidemia (ICD-10 - E78.5) [employer] Other [id number] Hospital Discharge instructions Patient Education 06/02/2023 11:57:43 [...] urethra. Follow these instructions at home: Take cgfh-joh-xaqhgbl and prescription medicines only as told by [...] Document Reviewed: 12/08/2021 Elsevier Patient Education 2022 [employer] Follow Up Care 06/01/2023 14:05:36 With:SOLEDAD HERRERA, Yeyo Blum, URL Address: [address] [place] [address]- When: Unknown [facility] 12-12-2023 Evaluation note* Encounter Date Diagnosis Assessment Notes Treatment Notes Treatment Clinical Notes May, 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) [employer] Other 11-24-2023 Evaluation note* Encounter Date Diagnosis Assessment Notes Treatment Notes Treatment Clinical Notes Apr, Diabetic nephropathy (ICD-10 - E11.21) [employer] Other 11-07-2023 Evaluation note* Encounter Date Diagnosis Assessment Notes Treatment Notes Treatment Clinical Notes Apr, Left arm pain (ICD-10 - M79.602) [employer] Other 11-02-2023 Evaluation note* Encounter Date Diagnosis [...] and to have his surgery as scheduled. 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 He was found to have developed [...] to continue to montior this at home. [employer] Other 10-09-2023 Note [id number] [id number]:127[facility]09-12-2023 Note [id number]:127[facility] 02-14-2023 Hospital Discharge instructions Patient [...] including vitamins, herbs, eye drops, creams, and qcqp-xnl-xubwywy medicines. Any problems you or family members [...] provider tells you to take them. Taking qkda-esw-ayasvba medicines, vitamins, herbs, and supplements. Surgery safety [...] provider. Document Revised: 02/15/2022 Document Reviewed: 02/15/2022 [employer] Patient Education 2022 [email or web address]. [facility]08-28-2023 Hospital Discharge instructions Patient Education 01/30/2023 11:22:32 [...] including vitamins, herbs, eye drops, creams, and yswf-jsa-ydnpryh medicines. ?Whether you are or may be [...] provider. Document Revised: 02/02/2022 Document Reviewed: 12/25/2020 [employer] Patient Education 2022 [email or web address]. 01/30/2023 11:22:30 Cystoscopy Cystoscopy Cystoscopy is a [...] including vitamins, herbs, eye drops, creams, and olzd-iuo-kecqcom medicines. Any problems you or family members [...] provider tells you to take them. Taking fbiv-jsp-sakdgon medicines, vitamins, herbs, and supplements. Tests You [...] Follow these instructions at home: Medicines Take imrd-spk-ykgifkj and prescription medicines only as told by [...] provider. Document Revised: 02/02/2022 Document Reviewed: 01/01/2021 [employer] Patient Education 2022 [email or web address]. Follow Up Care 11/23/2022 13:02:56 With:SOLEDAD HERRERA, Yeyo Blum, URL Address: [facility] [address] , [place] [address]- [phone] When: Unknown Comments:sched cysto/uros [facility] 08-15-2023 Evaluation note* Encounter Date Diagnosis Assessment Notes Treatment Notes Treatment Clinical Notes Jan, Diabetic nephropathy (ICD-10 - E11.21) [employer] Other 06-29-2023 Evaluation note* Encounter Date Diagnosis [...] reviewed. 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 [employer] Other 06-21-2023 Hospital Discharge instructions Patient Education [...] provider. Document Revised: 08/11/2021 Document Reviewed: 05/07/2021 [employer] Patient Education 2021 [email or web address]. Follow Up Care 09/14/2022 14:23:26 With:SOLEDAD HERRERA, Yeyo Blum, URL Address: [facility] [address] , [place] [address]- When: Unknown [facility] 05-05-2023 Evaluation note* Encounter Date Diagnosis Assessment Notes Treatment Notes Treatment Clinical Notes October, Erectile dysfunction, unspecified erectile dysfunction type (ICD-10 - N52.9) [employer] Other 04-19-2023 Evaluation note* Encounter Date Diagnosis Assessment Notes Treatment Notes Treatment Clinical Notes Sep, 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) [employer] Other 04-12-2023 Evaluation note* Encounter Date Diagnosis Assessment Notes Treatment Notes Treatment Clinical Notes Sep, 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) Sep, 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) [employer] Other 03-20-2023 Evaluation note* Encounter Date Diagnosis Assessment Notes Treatment Notes Treatment Clinical Notes Aug, Diabetic nephropathy (ICD-10 - E11.21) [employer] Other 03-03-2023 Evaluation note* Encounter Date Diagnosis Assessment Notes Treatment Notes Treatment Clinical Notes Aug, Pain in right leg (ICD-10 - M79.604) [employer] Other 03-02-2023 Evaluation note* Encounter Date Diagnosis Assessment Notes Treatment Notes Treatment Clinical Notes Aug, Pain in right leg (ICD-10 - M79.604) [employer] Other 02-20-2023 Evaluation note* Encounter Date Diagnosis Assessment Notes Treatment Notes Treatment Clinical Notes Jul, Intractable episodic headache, unspecified headache type (ICD-10 - R51.9) [employer] Other 02-14-2023 Evaluation note* Encounter Date Diagnosis Assessment Notes Treatment Notes Treatment Clinical Notes Jul, Acute intractable headache, unspecified headache type (ICD-10 - R51.9) [employer] Other 02-08-2023 Evaluation note* Encounter Date Diagnosis Assessment Notes Treatment Notes Treatment Clinical Notes Jul, Headache (ICD-10 - R51.9) [employer] Other 01-30-2023 Evaluation note* Encounter Date Diagnosis [...] medication and we will continue to monitor. [employer] Other 12-21-2022 Evaluation note* Encounter Date Diagnosis Assessment Notes Treatment Notes Treatment Clinical Notes May, Diabetic nephropathy (ICD-10 - E11.21) [employer] Other 11-21-2022 Evaluation note* Encounter Date Diagnosis Assessment Notes Treatment Notes Treatment Clinical Notes Apr, Diabetic nephropathy (ICD-10 - E11.21) [employer] Other 11-15-2022 Evaluation note* Encounter Date Diagnosis Assessment Notes Treatment Notes Treatment Clinical Notes Apr, Pain in right leg (ICD-10 - M79.604) [employer] Other 10-18-2022 Evaluation note* Encounter Date Diagnosis Assessment Notes Treatment Notes Treatment Clinical Notes Mar, Diabetic nephropathy (ICD-10 - E11.21) [employer] Other 09-13-2022 Evaluation note* Encounter Date Diagnosis Assessment Notes Treatment Notes Treatment Clinical Notes Feb, Hypertensive chronic kidney disease with stage 1 through stage 4 chronic kidney disease, or unspecified chronic kidney disease (ICD-10 - I12.9) [employer] Other 09-13-2022 Evaluation note* Encounter Date Diagnosis [...] scheduled. 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 Feb, Pain in right leg [...] Noted upon review of blood work results. [employer] Other 08-19-2022 Evaluation note* Encounter Date Diagnosis Assessment Notes Treatment Notes Treatment Clinical Notes Jan, Diabetic nephropathy (ICD-10 - E11.21) [employer] Other 08-17-2022 Evaluation note* Encounter Date Diagnosis Assessment Notes Treatment Notes Treatment Clinical Notes Jan, Diabetic nephropathy (ICD-10 - E11.21) [employer] Other 07-21-2022 Evaluation note* Encounter Date Diagnosis Assessment Notes Treatment Notes Treatment Clinical Notes Dec, Diabetic nephropathy (ICD-10 - E11.21) [employer] Other 06-22-2022 Evaluation note* Encounter Date Diagnosis Assessment Notes Treatment Notes Treatment Clinical Notes Nov, Diabetic nephropathy (ICD-10 - E11.21) [employer] Other 05-23-2022 Evaluation note* Encounter Date Diagnosis Assessment Notes Treatment Notes Treatment Clinical Notes October, Diabetic nephropathy (ICD-10 - E11.21) [employer] Other 05-17-2022 Evaluation note* Encounter Date Diagnosis [...] E11.59) October, 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 Kennedy. For this October, Other He did quit smoking since July 2020 [employer] Other 05-16-2022 Evaluation note* Encounter Date Diagnosis Assessment Notes Treatment Notes Treatment Clinical Notes October, Hypertensive chronic kidney disease with stage 1 through stage 4 chronic kidney disease, or unspecified chronic kidney disease (ICD-10 - I12.9) October, Stage 3 chronic kidney disease, unspecified whether stage 3a or 3b CKD (ICD-10 - N18.30) [employer] Other 05-06-2022 Evaluation note* Encounter Date Diagnosis Assessment Notes Treatment Notes Treatment Clinical Notes October, Pain in right leg (ICD-10 - M79.604) October, Pain in left leg (ICD-10 - M79.605) [employer] Other 04-20-2022 Evaluation note* Encounter Date Diagnosis Assessment Notes Treatment Notes Treatment Clinical Notes Sep, Diabetic nephropathy (ICD-10 - E11.21) [employer] Other 04-19-2022 Evaluation note* Encounter Date Diagnosis Assessment Notes Treatment Notes Treatment Clinical Notes Sep, Anxiety (ICD-10 - F41.9) Sep, Hypertensive chronic kidney disease with stage 1 through stage 4 chronic kidney disease, or unspecified chronic kidney disease (ICD-10 - I12.9) [employer] Other 03-07-2022 Evaluation note* Encounter Date Diagnosis Assessment Notes Treatment Notes Treatment Clinical Notes Aug, Anxiety (ICD-10 - F41.9) [employer] Other 02-22-2022 Evaluation note* Encounter Date Diagnosis [...] 12 pound weight loss from last visit. [employer] Other [id number] Evaluation note* Encounter Date Diagnosis Assessment Notes Treatment Notes Treatment Clinical Notes Jun, Diabetic nephropathy (ICD-10 - E11.21) [employer] Other Evaluation + Plan note Future Appointments Appointment Date:12/21/2022 11:00:00 AM Scheduled Provider: Location[place] [place] Appointment Type:URO Nurse Visit Appointment Date:01/30/2023 10:30:00 AM Scheduled Provider:Yeyo SILVESTRE MD Location:[facility] [place] Appointment Type:URO Office Visit [facility] [place] Evaluation + Plan note Future Appointments Appointment Date:01/30/2023 10:15:00 AM Scheduled Provider:Yeyo SILVESTRE MD Location:[facility] Appointment Type:URO Office Visit [facility] Evaluation + Plan note Future Appointments Appointment Date:02/01/2023 10:00:00 AM Scheduled Provider: Location:[facility] Appointment Type:Urology CALL PAT FT Appointment Date:02/08/2023 09:00:00 AM Scheduled Provider: Location:[facility] Appointment Type:Urology FT Appointment Date:02/14/2023 09:15:00 AM Scheduled Provider: Location:[facility] Appointment Type:Urology FT [facility] evaluation + Plan note Future Appointments Appointment Date:02/14/2023 09:15:00 AM Scheduled Provider: Location:[facility] Appointments Appointment Date:03/20/2023 08:45:00 AM Scheduled Provider: Location:[facility] Appointment Type:URO Nurse Visit Appointment Date:04/05/2023 08:00:00 AM Scheduled Provider:Yeyo SILVESTRE MD Location:[facility] Appointments Appointment Date:05/03/2023 08:45:00 AM Scheduled Provider:Yeyo SILVESTRE MD Location:[facility] Appointment Type:URO Office Visit [facility] Evaluation + Plan note Future Appointments Appointment Date:07/03/2023 10:15:00 AM Scheduled Provider:Yeyo SILVESTRE MD Location:[facility]ue Appointment Type:URO Office Visit [facility] evaluation noteNo InformationNort [employer] Other evaluation noteNo assessment information available [facility] Work Phone: History general Narrative - Reported* [...] hydrocele repair 08/2016 Surgical History cardiac cath [facility]18 Surgical History Lt LE iliac DSA, angioplasty & stenting 09/27/2018 Surgical History Left Angiogram with one stent - Dr. Boss 07/2020 Hospitalization History Deep Depression, Anxiety; [facility] 11-11-10 Hospitalization History [facility] hypoxemia and hyper capnic respirtory failure 11/11/16 Hospitalization History chest pain [facility] 04/02/18 [facility] [employer] Other History of Present illness NarrativeReturns in [...] impact on blood pressure and diabetes were reviewed-[facility] 250 DO Work Phone: History of [...] medication regimen. He denies medication side effects. [facility] 600 DO Work Phone: History of [...] medication regimen. [facility] Work Phone: Hospital course Narrative No data available for this section [facility] Discharge instructions No data available for this section [facility] [employer] Progress note No data available for this section [facility] [employer] Chief Complaint SOLOMON FELDMAN is being seen [...] adache, unspecified headache type (R51.9) Referral Organization [facility] Referring Provider First Name Jenaro Referring Provider Last Name Syed Referring Provider Specialty Family Prac dale Referred Organization [facility] Referred Provider Lyssa Sharpe Referred Address [address] [place], [place],[address] Referred Provider Specialty Neurology Referral Priority Routine General Notes [facility] 023 10:19:08 AM >Received today. [facility] request us to fill out their form and attach to Referral and send it to them and they will call patient to schedule. Referral was sent P2P and fax insurance card since it would not let me attach to referral [facility] 07/28/2022 10:23:53 AM >Spoke with Marilynn hurley [facility] and patient has been scheduled and cancelled the appt for 07/26/22 [facility] 07/28/2022 10:27:39 AM >Telephone encounter was sent Reason 03/31/22 @ 2:45pm consult and treat Diagnosis 1 Type 2 diabetes bobby itus with circulatory disorder (E11.59) Referral Organization [facility] Referring Provider First Name Jenaro Referring Provider Last Name Syed Referring Provider Specialty [facility] dale Referred Organization [facility] Referred Provider Doris Barnes Referred Address [address],[place], [place],[address] Referred Provider Specialty Nurse Jono calderon Referral Priority Routine Referral Appointment Date 2022-03-31 General Notes [facility] 022 02:28:10 PM >Received today and sent P2P [facility] 02/16/2022 07:50:21 AM >Patient has been [...] this at the same time, * Needs [id number] to sendRefills-bpk to send rxrefil - bpk to send rxLAB ORDERSRENAL 6 month Follow uprefillrefillclinicalRefills-bpk to send rxlyrica rx printedDM ReferralClinicaldiscuss PSA resultsclinicalClinicalRefills-bpk to send rxrefillrefill- BPK to send rxRefills-bpk to send rxClinicalheadachesClinicaltoradol shottoradol shotclinicaltoradol per bpkNeurology Referral UpdateRefills-bpk to send rxrefillRefillDM Referral UpdaterefillRefillsRefillsTKM CancelledMED CHECKbpk to send [id number] check/hospital f/u-bellevueRefillsR/S surgical clearanceclinicalrefillrefillrefillClinical Care Teams (unrecognized sec tion and content) Team Status: Active Member Role Status Dates Jenaro Lynch DO Primary Care Provider Active Team Status: Inactive Member Role Status Dates Jenaro Lynch DO Primary Care Provider Active Shana Mclaughlin PA-C Attending Provider Active Team Status: Inactive Member Role Status Dates Jenaro Lynch DO Primary Care Provider Active Jenaro Lynch DO [facility] Attending Provider Active Team Status: Inactive Member [...] and content) DATE CREATED AUTHOR 11/11/2022 [facility] DATE CREATED AUTHOR AUTHOR'S ORGANIZ ATION 01/27/2023 [facility] DATE CREATED AUTHOR AUTHOR'S ORGANIZ ATION 02/16/2023 [facility] DATE CREATED AUTHOR AUTHOR'S ORGANIZ ATION 02/16/2023 [employer] DATE CREATED AUTHOR AUTHOR'S ORGANIZ ATION 07/14/2023 [facility] DATE CREATED AUTHOR AUTHOR'S ORGANIZ ATION 08/08/2023 [facility] FOR RECORDS PERTAINING TO PATIENTS WHO [...] BE BASED ON THE PRIMARY CLINICAL RECORDS. [facility] provides no warranty or guarantee of the accuracy or completeness of information in this document.
== END 2023-08-29 09:55 | disposition home or self-care (01) ==
LOC: WC 09:54
PROVIDERS: PCP Family Medicine; Visit Provider Podiatrist Foot & Ankle Surgery
DX: E11.621 Type 2 diabetes mellitus with foot ulcer (principal); L97.415 Non-pressure chronic ulcer of right heel and midfoot with muscle involvement without evidence of necrosis
CPT/HCPCS: 11043

== ENCOUNTER 2023-09-04 15:57 | Outpatient (OUT) | payer OTHER, SELFPAY | END 2023-09-04 15:58 | disposition home or self-care (01) | LOC: WC 15:57 | PROVIDERS: PCP Family Medicine; Visit Provider Physician Assistant | DX: E11.621 Type 2 diabetes mellitus with foot ulcer (principal); L97.415 Non-pressure chronic ulcer of right heel and midfoot with muscle involvement without evidence of necrosis | CPT/HCPCS: 29445 ==

== ENCOUNTER 2023-09-12 13:26 | Outpatient (OUT) | payer OTHER, SELFPAY ==
--- OUTSIDE RECORDS SUMMARY | 2023-09-12 13:30 | XMS_ITS | CCD ---
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 Jenaro Orona Primary Care UnavailDolores Vaughn Attending Unavailable Dolores Feldman Attending Unavailable Dolores Feldman Referring Unavailable Syed, Dr. Jenaro Orona Primary Care UnavailDolores Vaughn Attending Unavailable Dolores Feldman Referring Unavailable Syed, Dr. Jenaro Orona Primary Care Unavailmaría Inman II, Dr. Raulito Orona Referring Unavailable Syed, Dr. Jenaro Orona Primary Care Unavailmaría Inman II, Dr. Raulito Orona Attending Unavailable DO Jenaro Lynch Primary Care Provider MD Nancy Wilson Emergency Provider Syed Jenaro PERLA Admitting [facility]available [facility] Unavailable Jenaro Lynch Primary Care Unavailable Shana Mclaughlin Admitting Unavailable Lowe, Shana Attending Unavailable Kuns, Jenaro Primary Care Unavailable Lowe, Shana Admitting Unavailable Lowe, Shana Attending Unavailable Lowe, Shana Referring Unavailable Kuns, Jenaro Primary Care Unavailable Kuns, Jenaro Primary Care Unavailable Wilson, Nancy Attending Unavailable Wilson, Nancy Admitting Unavailable ROWE, Yeyo R Attending Unavailable [...] Yeyo R Admitting Unavailable ROWE, Yeyo R Referring Unavailable ROWE, Yeyo R Attending Unavailable Allergies Allergy Classification Reported Allergen(s) Allergy Type Date of Onset Reaction(s) Facility (19 sources) natural latex rubber; 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: [Latex] Allergy to substance (finding) Itching (finding), Eruption of skin (disorder) [facility] (20 sources) Penicillins; 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: [Penicillins] Allergy to drug (finding) 07-14-19 21 Anaphylactoid reaction (disorder) [facility] (20 sources) Acetaminophen / oxyCODONE Drug Allergy vomiting [facility] Other (20 sources) tamsulosin Drug Allergy 07-14-19 21 hives [facility] (20 sources) PENICIILIN Propensity to adverse reactions SWELLING OF AIRWAY [facility] Other (3 sources) Acetaminophen; 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: [acetaminophen] Drug Allergy 07-14-19 21 Vomiting [facility] (4 sources) oxyCODONE; 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: [Oxycodone] Drug Allergy 02-08-20 17 [facility] (1 source) Penicillins Drug allergy (disorder) 09-23-19 14 [facility] Repository (13 sources) Penicillin G; 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: [penicillin G benzathine] Drug Allergy [facility] (8 sources) Penicillin Drug Allergy anaphylaxis [employer] Other (1 source) Penicillins Drug allergy (disorder) 07-31-19 [facility] Repository (1 source) tamsulosin Drug Allergy 07-31-19 [facility] Repository Medications Current Medications Medication Drug [...] 12:00am July 14, 2020 11:39am Start: 10-10-2014 [place] 325 mg-5 mg oral tablet 1 tab(s), Oral, q4hr for pain, 12 tab(s), Refill(s) 0 Start Date: 10/10/14 Status: Ordered ProAir (20 sources) beta2-Adrenergic Agonist Start: 11-23-2022 ProAi [...] Orally QHS Active Aspirin 81 mg Tab-EC (12 sources) Start: 07-10-2014 Aspirin 81 mg Tab-EC Refills(s) 0 Start Date: 07/10/14 Status: Ordered atorvastatin 80 mg oral tablet (20 sources) HMG-CoA Reductase Inhibitor Start: 07-10-2014 End: 07-24-2019 take 1 tablet by mouth once daily Lipitor 80 mg Tab 80 mg = 1 tab(s), Oral, Daily, # 30 tab(s), Refills(s) 0 Start Date: 07/10/14 Status: Ordered Blood Glucose Meter kit (20 sources) Start: [...] 12 hrs for 10 day(s) Jul, Active clopidogrel 75 mg oral tablet (20 sources) P2Y12 Platelet Inhibitor Start: 07-10-2014 End: 06-28-2019 take 1 tablet by mouth once daily Plavix 75 mg Tab 75 mg = 1 tab(s), Oral, Daily, # 30 tab(s), Refills(s) 0 Start Date: 07/10/14 Status: Ordered diazePAM 5 mg oral tablet (20 sources) [...] (20 sources) Sodium-Glucose Cotransporter 2 Inhibitor Start: 11-23-2022 take 1 mg by mouth once daily in the morning Jardiance 10 mg oral tablet mg tab(s), Oral, qAM Start Date: 11/23/22 Status: Ordered Start: 09-28-2020 take 1 tablet by kalie th every twenty-four hours Jardiance 25 MG 1 tablet Orally Once a day for 30 day(s) Sep, Active famotidine 40 mg oral tablet (12 sources) Histamine-2 Receptor Antagonist Start: 07-10-2014 take 1 tablet by mouth once daily at bedtime famotidine 40 mg Tab 40 mg = 1 tab(s), Oral, Once a day (at bedtime), # 30 tab(s), Refills(s) 0 Start Date: 07/10/14 Status: Ordered fenofibrate 160 mg oral tablet (12 sources) Peroxisome Proliferator Receptor alpha Agonist Start: [...] syringe (1 source) Start: 07-12-2023 Fremanezumab-V frm ([employer] Autoinjector) 225 mg/1.5 mL auto-injector Active 225 [...] tablet (20 sources) Sulfonylurea Start: 10-31-2013 take 1 tablet by mouth twice daily Amaryl 2 mg Tab 2 mg = 1 tab(s), Oral, BID, Refills(s) 0 Start Date: 10/31/13 Status: Ordered hydroCHLOROthiazide 12.5 mg / valsartan 160 mg oral tablet (20 sources) Thiazide Diuretic, Angiotensin 2 Receptor Saida Start: 11-23-2022 take 1 tablet by mouth once daily hydrochlorothia zide-valsartan 12.5 mg-160 mg Tab tab(s), Oral, Daily Start Date: [...] mononitrate 30 mg extended release oral tablet (14 sources) Nitrate Vasodilator Start: 07-12-19 24 take [...] take 1000 mg by mouth twice daily metformin 1,000 mg, Oral, BID, Refills(s) 0 Start Date: 06/06/12 Status: Ordered take 1 tablet by kalie th every [...] sublingual tablet (20 sources) Nitrate Vasodilator Start: 07-10-2014 End: 03-13-2019 NitroStat 0.4 mg Tab 0.4 mg = 1 tab(s), SubLingual, q5min, PRN for chest pain, # 100 tab(s), Refills(s) 0 Start Date: 07/10/14 Status: Ordered Nitroglycerin 0. 4 MG as directed Sublingual [...] 200 mg oral capsule (20 sources) Start: 01-24-2011 End: 07-24-2019 take 200 mg by mouth three times daily Lyrica 200 mg, Oral, TID, Refills(s) 0 Start Date: 01/24/11 Status: Ordered ProAir HFA 108 (90 Base) MCG/ACT (20 sources) Start: 12-04-2017 take 2 puff(s) by inhalation every four hours as needed ProAir HFA 108 (90 Base) MCG/ACT 2 puffs as needed Inhalation Q4H PRN PRN Dec, Active Start: 12-04-2017 take 2 puff(s) by inhalation e very four hours as needed 12 hr ranolazine 1000 mg extended release oral tablet (14 sources) Anti-anginal Start: 07-10-2014 End: 07-14-2020 take 1 tablet by mouth twice daily Ranexa 1000 mg oral tablet, extended release 1,000 mg = 1 tab(s), Oral, BID, # 60 tab(s), Refills(s) 0 Start Date: 07/10/14 Status: Ordered rimegepant 75 mg disintegrating oral tablet (1 source) Start: 07-12-2023 take 1 tablet by mouth once daily Rimegepant (Nurtec Odt) 75 mg tablet,disinteg rating Active 75 MG PO Daily July 12, 2023 12:00am rOPINIRole 1 mg oral tablet (20 sources) Nonergot Dopamine Agonist Start: 01-24-2011 take 1 mg by mouth three times daily Requip 1 mg, Oral, TID, Refills(s) 0 Start Date: 01/24/11 Status: Ordered sildenafil 100 mg oral tablet (20 sources) Phosphodiesterase 5 Inhibitor Start: 05-07-2018 take 1 tablet by mouth once daily Sildenafil (Viagra) 100 mg Tablet Active 100 MG PO Daily March 12, 2019 11:00pm SITagliptin 100 mg oral tablet (20 sources) Dipeptidyl Peptidase 4 Inhibitor Start: 07-09-2020 take 1 mg by mouth once daily Januvia 100 mg Tab mg tab(s), Oral, Daily Start Date: 11/23/22 Status: Ordered tamsulosin hydrochloride 0.4 mg oral capsule (10 sources) alpha-Adrenergic Saida Start: 06-26-2023 take 1 capsule by mouth twice daily tamsulosin 0.4 mg Cap 0.4 mg = 1 cap(s), Oral, BID, # 60 cap(s), Refills(s) 11, Pharmacy: [facility]/pharmacy #[id number], 182, cm, 06/02/23 11:00:00 EST, Height/Length Dosing, 94, kg, 06/02/23 11:00:00 EST, Weight Dosing Start Date: 06/26/23 Status: Ordered Start: 02-14-2023 take 1 capsule by mo [facility] twice daily tamsulosin 0.4 mg Cap 0.4 mg = 1 cap(s), Oral, BID, # 60 cap(s), Refills(s) 3, Pharmacy: [facility]/pharmacy #[id number], 182, cm, 02/14/23 8:58:00 EDT, Height/Length Dosing, 94, kg, 01/30/23 10:24:00 EDT, Weight Dosing Start Date: 02/14/23 Status: Ordered take 1 capsule by [facility] once daily Tamsulosin HCl - 0.4 MG Oral Capsule TAKE 1 CAPSULE Daily Quantity: 0 Refills: 0 Ordered: 15-Feb-2023 DO Active TENS Unit (20 sources) Start: 01-27-2014 Start: 01-27-2014 TENS Unit as d irected Use as directed. Jan, Active Tiotropium Trinidad (Spiriva With Handihaler) 18 mcg capsule, w/inhalation device (1 source) Start: 07-12-2023 take 1 capsule by inhalation once daily Tiotropium Trinidad (Spiriva With Handihaler) 18 mcg capsule, w/inhalation [...] Ordered Start: 07-04-2022 take 1 tablet by [facility] every twelve hours tiZANidine HCl 4 MG 1 tablet as needed Orally Twice a day Jun, Active take 2 tablets by [facility] at bedtime tiZANidine HCl - 4 MG [...] DO Active amLODIPine 10 mg oral tablet (14 sources) Dihydropyridine Calcium Channel Saida Start: 04-01-2018 [...] 12, 2019 11:00pm July 24, 2019 1:52pm dicyclomine hydrochloride 20 mg oral tablet (11 sources) Anticholinergic Start: 05-22-2020 End: 07-12-2023 take 20 mg by mouth three times daily Dicyclomine Discontinued 20 MG PO Three times daily July 14, 2020 12:00am July 12, 2023 5:30pm doxycycline hyclate 100 mg oral capsule (10 sources) Tetracycline-class Drug Start: 01-30-2023 take 1 capsule by mouth once daily doxycycline hyclate 100 mg Cap 100 mg = 1 cap(s), Oral, Daily, Take 1 pill the day before the procedure and 1 pill after the procedure, # 2 cap(s), Refills(s) 0, Pharmacy: [facility]/pharmacy #[id number], 182, cm, 01/30/23 10:24:00 EDT, [...] take 1 tablet by mouth once daily Olmesartan-Blanca chlorothiazide (Benicar Hct) 40-12.5 mg Tablet Discontinued [...] 28, 2019 12:00am July 24, 2019 1:52pm tiotropium 0.018 mg inhalation powder (20 sources) Anticholinergic Start: 11-23-2022 Spiriva 18 mcg Cap 18 mcg = 1 cap(s), Inhalation, Daily, Using only ONE capsule, have the patient inhale twice, # 90 cap(s) Start Date: 11/23/22 Status: Ordered Start: 11-23-2022 Spiriva 18 mcg Cap 18 mcg = 1 cap(s), Inhalation, Daily, Using only ONE capsule, have the patient inhale twice, # 90 cap(s) Start Date: 11/23/22 Status: Ordered take 1 capsule by in halation once daily Spiriva HandiHaler 18 MCG 1 capsule by inhaling the contents of the capsule using the HandiHaler device Inhalation Once a day Active take 1 capsule by in halation once daily Spiriva HandiHaler 18 MCG 1 capsule by inhaling the contents of the capsule using the HandiHaler device Inhalation Once a day Active take 2 puff(s) by in halation twice daily Spiriva Respimat 2.5 MCG/ACT Inhalation Aerosol [...] [Unspecified kidney failure] Chronic Acute myocardial infarction (20 sources) Myocardial infarction 10-10-2014 Chronic Anxiety disorders [...] 2 Chronic obstructive pulmonary disease and bronchiectasis (12 sources) Pulmonary emphysema 11-23-2022 Chronic Congestive heart failure; nonhypertensive (12 sources) Congestive heart failure 10-10-2014 Chronic Coronary atherosclerosis and other heart disease (20 sources) Disorder of coronary artery; 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: [Coronary atherosclerosis of unspecified type of vessel, [place] or graft] Onset: 2 Resolved: 2 Chronic [...] [Headache, unspecified] Onset: 3 Heart valve disorders (12 sources) Heart murmur 11-23-2022 Episodic Hyperplasia of prostate (15 sources) Benign prostatic hypertrophy with outflow obstruction; 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: [Benign prostatic hyperplasia with lower urinary tract symptoms] Onset: 3 Chronic Hypertension with complications and secondary hypertension (20 sources) Hypertensive renal disease; 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: [Hypertensive chronic kidney disease with stage 1 through stage 4 chronic kidney disease, or unspecified chronic kidney disease] Onset: 2 Resolved: 2 Chronic Inflammatory conditions of male genital organs (15 sources) Orchitis; 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: [Orchitis] Onset: 3 Episodic Nausea and vomiting (20 sources) Nausea and vomiting; 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: [Nausea with vomiting, unspecified] Episodic Nonspecific chest pain (2 sources) Chest pain; 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: [Chest pain, unspecified] 04-01-2018 Episodic Nutritional deficiencies (20 sources) Vitamin D deficiency; 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: [Vitamin D deficiency, unspecified] Onset: 2 Resolved: 2 Chronic Osteoarthritis (12 sources) Arthritis 01-16-2013 Chronic Other acquired deformities (20 sources) Contracture of joint of hand; 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: [Contracture, 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 Other aftercare (20 sources) Long-term current use of insulin; 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: [manager terminal (current) use of insulin] Episodic Other and ill-defined heart disease (12 sources) Heart disease 11-23-2022 Chronic Other connective tissue disease (20 sources) Pain in limb; 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: [Pain in leg, unspecified] Episodic Other connective tissue disease (5 sources) Pain in right leg Onset: 2 Resolved: 2 Episodic Other connective tissue disease (12 sources) 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 Other connective tissue [...] circulatory system] 04-01-2018 Episodic Residual codes; unclassified (12 sources) Tobacco user 01-16-2013 Episodic Comment on [...] duplex LE BIon US venous duplex LE [facility] [place] [address] Ultrasound Report Signed Patient: Solomon Feldman SR MR#: [id number] : 1965 Acct:[id number] Age/Sex: 57 / M ADM Date: 07/12/23 Loc: ER Room: Type: [facility] [place] ER Attending Dr: Ordering Provider: Nancy Wilson [...] Howard Boss MD07/13/2023 11:56 AM Dictation Location: [place] [address] Tech: Nancy Pantoja Transcribed By: BOB 07/13/23 115 Dictated By: Howard Boss MD 07/13/23 1156 Signed By: 07/13/23 115 [facility] US venous duplex UE LTon US venous duplex UE LT [facility] [place] [address] Ultrasound Report Signed Patient: Solomon Feldmna SR MR#: [id number] : 1965 Acct:[id number] Age/Sex: 57 / M ADM Date: 07/12/23 Loc: ER Room: Type: [facility] [place] ER Attending Dr: Ordering Provider: Nancy Wilson [...] Howard Boss MD07/13/2023 11:56 AM Dictation Location: [place] [address] Tech: Nancy Pantoja Transcribed By: BOB 07/13/23 115 Dictated By: Howard Boss MD 07/13/23 1155 Signed By: 07/13/231155 [facility] Activated partial thrombopla stin time (aPTT) in platelet poor plasma by coagulation aOrdered By: Nancy Wilson on 07-12-2023 aPTT Coag (PPP) [Time] 29.4 s 25.1-36.5 [facility] Comment on above: A hematocrit value g reater than 55% may lead to inaccurate results in coagulation testing. Patients having hematocrit values >55% require a special collection tube for coagulation studies. Please contact the laboratory at [phone] for redraw instructions. Alanine aminotransferase [En zymatic activity/volume] in Serum or PlasmaOrdered By: Nancy Wilson on 07-12-2023 ALT [Catalytic activity/Vol] 9 U/L 7-52 [facility] Albumin [Mass/volume] in Ser um or Plasma by Bromocresol green (BCG) dye binding methoOrdered By: Nancy Wilson on 07-12-2023 Albumin BCG dye [Mass/Vol] 3.9 g/dL 3.5-5.7 [facility] Alkaline phosphatase [Enzyma tic activity/volume] in Serum or PlasmaOrdered By: Nancy Wilson on 07-12-2023 ALP [Catalytic activity/Vol] 106 U/L 34-104 [facility] Aspartate aminotransferase [ Enzymatic activity/volume] in Serum or PlasmaOrdered By: Nancy Wilson on 07-12-2023 AST [Catalytic activity/Vol] 8 U/L 13-39 [facility] B-Type Natriuretic Peptideon 07-12-2023 Natriuretic peptide B (Bld) [Mass/Vol] 34.0 pg/mL Normal 5-100 [facility] Comment on above: Result Comment: PERF ORMED BY: [facility] [address] [place] [id number] PATHOLOGIST WIRELESS NETWORK ENGINEER CLIFFORD LOBATO M.D. Performed By: #### B COAT OPERATOR INSULATOR, CMP, HS TROP, CK, PTT, CBC, PT ####[facility] [id number] [place] [id number] [facility] Basophils Auto (Bld) [#/Vol] Ordered By: Nancy Wilson on 07-12-2023 Basophils (Bld) [#/Vol] 0.1 10*3/uL 0.0-0.2 [facility] Basophils/100 WBC Auto (Bld) Ordered By: Nancy Wilson on 07-12-2023 Basophils/100 WBC (Bld) 1.1 % . [facility] Bilirubin.total [Mass/volume ] in Serum or PlasmaOrdered By: Nancy Wilson on 02-07-2024 Bilirubin [Mass/Vol] 0.4 mg/dL 0.3-1.0 [facility] Calcium [Mass/volume] in Ser um or PlasmaOrdered By: Nancy Wilson on 07-12-2023 Calcium [Mass/Vol] 8.5 mg/dL 8.6-10.3 [facility] Carbon dioxide, total [Moles /volume] in Serum or PlasmaOrdered By: Nancy Wilson on 07-12-2023 CO2 [Moles/Vol] 24.5 mmol/L 21.0-31.0 [facility] Chloride [Moles/volume] in S ilia or PlasmaOrdered By: Nancy Wilson on 07-12-2023 Chloride [Moles/Vol] 102 mmol/L 98-107 [facility] Complete Blood Count Auto Di ffon 07-12-2023 Basophils (Bld) [#/Vol] 0.1 10*3/uL Normal 0.0-0.2 [facility] Comment on above: Result Comment: PERF ORMED BY: [facility] [address] [place] [address] PATHOLOGIST WIRELESS NETWORK ENGINEER CLIFFORD LOBATO M.D. Performed By: #### B COAT OPERATOR INSULATOR, CMP, HS TROP, CK, PTT, CBC, PT ####[place] [id number] [address] Basophils/100 WBC (Bld) 1.1 % Normal . [facility] Comment on above: Performed By: #### B COAT OPERATOR INSULATOR, CMP, HS TROP, CK, PTT, CBC, PT ####[place] [id number] [address] Eosinophils (Bld) [#/Vol] 0.3 10*3/uL Normal 0.0-0.45 [facility] Comment on above: Performed By: #### B COAT OPERATOR INSULATOR, CMP, HS TROP, CK, PTT, CBC, PT ####[address] Eosinophils/100 WBC (Bld) 3.3 % Normal . [facility] Comment on above: Performed By: #### B COAT OPERATOR INSULATOR, CMP, HS TROP, CK, PTT, CBC, PT ####[address] Erythrocyte distribution width (RBC) [Ratio] 17.1 % High 12.0-14.8 [facility] Comment on above: Performed By: #### B COAT OPERATOR INSULATOR, CMP, HS TROP, CK, PTT, CBC, PT ####[address] Hematocrit (Bld) [Volume fraction] 32.7 % Low 38.8-50.0 [facility] Comment on above: Performed By: #### B COAT OPERATOR INSULATOR, CMP, HS TROP, CK, PTT, CBC, PT ####[address] Hemoglobin (Bld) [Mass/Vol] 10.6 g/dL Low 13.0-17.0 [facility] Comment on above: Performed By: #### B COAT OPERATOR INSULATOR, CMP, HS TROP, CK, PTT, CBC, PT ####[address] Lymphocytes (Bld) [#/Vol] 1.9 10*3/uL Normal 1.00-4.8 [facility] Comment on above: Performed By: #### B COAT OPERATOR INSULATOR, CMP, HS TROP, CK, PTT, CBC, PT ####[address] Lymphocytes/100 WBC (Bld) 20.0 % Normal . [facility] Comment on above: Performed By: #### B COAT OPERATOR INSULATOR, CMP, HS TROP, CK, PTT, CBC, PT ####[address] MCH (RBC) [Entitic mass] 22.8 pg Low 27.5-35.2 [facility] Comment on above: Performed By: #### B COAT OPERATOR INSULATOR, CMP, HS TROP, CK, PTT, CBC, PT ####[address] MCV (RBC) [Entitic vol] 70.6 fL Low 83.5-101 [facility] Comment on above: Performed By: #### B COAT OPERATOR INSULATOR, CMP, HS TROP, CK, PTT, CBC, PT ####[address] Mean Corpuscular HGB Conc 32.4 g/dL Low 32.5-35.6 [facility] Comment on above: Performed By: #### B COAT OPERATOR INSULATOR, CMP, HS TROP, CK, PTT, CBC, PT ####[address] Monocytes (Bld) [#/Vol] 1.0 10*3/uL High 0.0-0.8 [facility] Comment on above: Performed By: #### B COAT OPERATOR INSULATOR, CMP, HS TROP, CK, PTT, CBC, PT ####[address] Monocytes/100 WBC (Bld) 18.12 % Normal 0.00-20.00 [facility] Comment on above: Performed By: #### B COAT OPERATOR INSULATOR, CMP, HS TROP, CK, PTT, CBC, PT ####[address] Monocytes/100 WBC (Bld) 10.2 % Normal . [facility] Comment on above: Performed By: #### B COAT OPERATOR INSULATOR, CMP, HS TROP, CK, PTT, CBC, PT ####[address] Neutrophils (Bld) [#/Vol] 6.2 10*3/uL Normal 1.8-7.7 [facility] Comment on above: Performed By: #### B COAT OPERATOR INSULATOR, CMP, HS TROP, CK, PTT, CBC, PT ####[address] Neutrophils/100 WBC (Bld) 65.4 % Normal . [facility] Comment on above: Performed By: #### B COAT OPERATOR INSULATOR, CMP, HS TROP, CK, PTT, CBC, PT ####[address] NRBC% 0.1 /100{WBC} Normal 0-0.5 [facility] Comment on above: Performed By: #### B COAT OPERATOR INSULATOR, CMP, HS TROP, CK, PTT, CBC, PT ####[address] Platelet mean volume (Bld) [Entitic vol] 9.1 fL Normal 6.6-10.1 [facility] Comment on above: Performed By: #### B COAT OPERATOR INSULATOR, CMP, HS TROP, CK, PTT, CBC, PT ####[address] Platelets (Bld) [#/Vol] 233 10*3/uL Normal 150-450 [facility] Comment on above: Performed By: #### B COAT OPERATOR INSULATOR, CMP, HS TROP, CK, PTT, CBC, PT ####[address] RBC (Bld) [#/Vol] 4.63 10*6/uL Normal 3.90-5.60 [facility] Comment on above: Performed By: #### B COAT OPERATOR INSULATOR, CMP, HS TROP, CK, PTT, CBC, PT ####[address] WBC (Bld) [#/Vol] 9.5 10*3/uL Normal 4.1-10.5 [facility] Comment on above: Performed By: #### B COAT OPERATOR INSULATOR, CMP, HS TROP, CK, PTT, CBC, PT ####[address] Comprehensive Metabolic Pane bárbara 07-12-2023 Albumin [Mass/Vol] 3.9 g/dL Normal 3.5-5.7 [facility] Comment on above: Performed By: #### B COAT OPERATOR INSULATOR, CMP, HS TROP, CK, PTT, CBC, PT ####[address] Albumin/Globulin [Mass ratio] 1.3 {ratio} Normal [facility] Comment on above: Performed By: #### B COAT OPERATOR INSULATOR, CMP, HS TROP, CK, PTT, CBC, PT ####[address] [place] [address] [place] ALP [Catalytic activity/Vol] 106 U/L High 34-104 [facility] Comment on above: Performed By: #### B COAT OPERATOR INSULATOR, CMP, HS TROP, CK, PTT, CBC, PT ####[address] ALT [Catalytic activity/Vol] 9 U/L Normal 7-52 [facility] Comment on above: Performed By: #### B COAT OPERATOR INSULATOR, CMP, HS TROP, CK, PTT, CBC, PT ####[address] Anion gap [Moles/Vol] 13.4 mmol/L Normal 6.0-15.0 [facility] Comment on above: Performed By: #### B COAT OPERATOR INSULATOR, CMP, HS TROP, CK, PTT, CBC, PT ####[address] AST [Catalytic activity/Vol] 8 U/L Low 13-39 [facility] Comment on above: Performed By: #### B COAT OPERATOR INSULATOR, CMP, HS TROP, CK, PTT, CBC, PT ####[address] Bilirubin [Mass/Vol] 0.4 mg/dL Normal 0.3-1.0 [facility] Comment on above: Performed By: #### B COAT OPERATOR INSULATOR, CMP, HS TROP, CK, PTT, CBC, PT ####[address] Calcium [Mass/Vol] 8.5 mg/dL Low 8.6-10.3 [facility] Comment on above: Performed By: #### B COAT OPERATOR INSULATOR, CMP, HS TROP, CK, PTT, CBC, PT ####[address] Chloride [Moles/Vol] 102 mmol/L Normal 98-107 [facility] Comment on above: Performed By: #### B COAT OPERATOR INSULATOR, CMP, HS TROP, CK, PTT, CBC, PT ####[place] [address] [facility] CO2 [Moles/Vol] 24.5 mmol/L Normal 21.0-31.0 [facility] Comment on above: Performed By: #### B COAT OPERATOR INSULATOR, CMP, HS TROP, CK, PTT, CBC, PT ####[address] [place] [address] [facility] Creatinine [Mass/Vol] 1.82 mg/dL High 0.70-1.30 [facility] Comment on above: Performed By: #### B COAT OPERATOR INSULATOR, CMP, HS TROP, CK, PTT, CBC, PT ####[address] [place] [id number] [facility] Creatinine Clr Calc Pharmacy 54.64 [facility] Comment on above: Result Comment: PERF ORMED BY: [facility] [address] [place] [address] PATHOLOGIST WIRELESS NETWORK ENGINEER CLIFFORD LOBATO M.D. Performed By: #### B COAT OPERATOR INSULATOR, CMP, HS TROP, CK, PTT, CBC, PT ####[place] [address] [place] [id number] [facility] GFR/1.73 sq M.predicted MDRD (S/P/Bld) [Vol rate/Area] 42.789 mL/min/{1.73_m2} [facility] Comment on above: Performed By: #### B COAT OPERATOR INSULATOR, CMP, HS TROP, CK, PTT, CBC, PT ####[place] [address] [place] [address] [facility] Globulin (S) [Mass/Vol] 3.1 g/dL [facility] Comment on above: Performed By: #### B COAT OPERATOR INSULATOR, CMP, HS TROP, CK, PTT, CBC, PT ####[place] [address] [place] [id number] [facility] Glucose [Mass/Vol] 302 mg/dL High 70-100 [facility] Comment on above: Result Comment: [place] Glucose Reference Range is dependent on time and content of last meal. Glucose of more than 200 mg/dL in a nonstressed, ambulatory subject supports the diagnosis of Diabetes Mellitus. ADA recommended reference range Performed By: #### B COAT OPERATOR INSULATOR, CMP, HS TROP, CK, PTT, CBC, PT ####[address] Potassium [Moles/Vol] 3.9 mmol/L Normal 3.5-5.1 [facility] Comment on above: Performed By: #### B COAT OPERATOR INSULATOR, CMP, HS TROP, CK, PTT, CBC, PT ####[place] [id number] [facility] Protein [Mass/Vol] 7.0 g/dL Normal 6.4-8.9 [facility] Comment on above: Performed By: #### B COAT OPERATOR INSULATOR, CMP, HS TROP, CK, PTT, CBC, PT ####[address] Sodium [Moles/Vol] 136 mmol/L Normal 136-145 [facility] Comment on above: Performed By: #### B COAT OPERATOR INSULATOR, CMP, HS TROP, CK, PTT, CBC, PT ####[address] Urea nitrogen [Mass/Vol] 16 mg/dL Normal 7-25 [facility] Comment on above: Performed By: #### B COAT OPERATOR INSULATOR, CMP, HS TROP, CK, PTT, CBC, PT ####[place] [id number] [facility] Creatine Kinaseon 07-12-2023 CK [Catalytic activity/Vol] 55 U/L Normal 30-223 [facility] Comment on above: Performed By: #### B COAT OPERATOR INSULATOR, CMP, HS TROP, CK, PTT, CBC, PT ####[place] [id number] [facility] Creatine kinase [Enzymatic a ctivity/volume] in Serum or PlasmaOrdered By: Nancy Wilson on 07-12-2023 CK [Catalytic activity/Vol] 55 U/L 30- [facility] Creatinine [Mass/volume] in Serum or PlasmaOrdered By: Nancy Wilson on 07-12-2023 Creatinine [Mass/Vol] 1.82 mg/dL 0.70-1.30 [facility] ECG 12 lead ECGon 07-12-2023 ECG 12 lead ECG [facility] [place] [address] Electrocardiograph Report Signed Patient: Solomon Feldman SR MR#: [id number] : 1965 Acct:[id number] Age/Sex: 57 / M ADM Date: 07/12/23 Loc: ER Room: Type: [facility] [place] ER Attending Dr: Ordering Provider: Nancy Wilson [...] By Nancy Wilson MD 01/26 0135 Normal [facility] Eosinophils Auto (Bld) [#/Vo l]Ordered By: Nancy Wilson on 07-12-2023 Eosinophils (Bld) [#/Vol] 0.3 10*3/uL 0.0-0.45 [facility] Eosinophils/100 WBC Auto (Bl d)Ordered By: Nancy Wilson on 07-12-2023 Eosinophils/100 WBC (Bld) 3.3 % . [facility] Erythrocyte distribution wid th Auto (RBC) [Ratio]Ordered By: Nancy Wilson on 07-12-2023 Erythrocyte distribution width (RBC) [Ratio] 17.1 % 12.0-14.8 [facility] Globulin Calc (S) [Mass/Vol] Ordered By: Nancy Wislon on 07-12-2023 Globulin (S) [Mass/Vol] 3.1 g/dL [facility] Glucose [Mass/volume] in Ser um or PlasmaOrdered By: Nancy Wilson on 07-12-2023 Glucose [Mass/Vol] 302 mg/dL 70-100 [facility] Comment on above: ADA recommended refe rence rangeRandom Glucose Reference Range is dependent on time and content of last meal. Glucose of more than 200 mg/dL in a nonstressed, ambulatory subject supports the diagnosis of Diabetes Mellitus. Hematocrit Auto (Bld) [Volum e fraction]Ordered By: Nancy Wilson on 07-12-2023 Hematocrit (Bld) [Volume fraction] 32.7 % 38.8-50.0 [facility] Hemoglobin [Mass/volume] in BloodOrdered By: Nancy Wilson on 07-12-2023 Hemoglobin (Bld) [Mass/Vol] 10.6 g/dL 13.0-17.0 [facility] INR in Platelet poor plasma by Coagulation assayOrdered By: Nancy Wilson on 07-12-2023 INR Coag (PPP) [Relative time] 1.1 {INR} [facility] Comment on above: INR Therapeutic Rang [...] RBC Auto (Bld) [#/Vol] 9.5 10*3/uL 4.1-10.5 [facility] Lymphocytes Auto (Bld) [#/Vo l]Ordered By: Nancy Wilson on 07-12-2023 Lymphocytes (Bld) [#/Vol] 1.9 10*3/uL 1.00-4.8 [facility] Lymphocytes/100 WBC Auto (Bl d)Ordered By: Nancy Wilson on 07-12-2023 Lymphocytes/100 WBC (Bld) 20.0 % . [facility] MCH Auto (RBC) [Entitic mass ]Ordered By: Nancy Wilson on 07-12-2023 MCH (RBC) [Entitic mass] 22.8 pg 27.5-35.2 [facility] MCHC Auto (RBC) [Mass/Vol]Or dered By: Nancy Wilson on 07-12-2023 MCHC (RBC) [Mass/Vol] 32.4 g/dL 32.5-35.6 [facility] MCV Auto (RBC) [Entitic vol] Ordered By: Nancy Wilson on 07-12-2023 MCV (RBC) [Entitic vol] 70.6 fL 83.5-101 [facility] Monocyte distribution width [Entitic volume] in Blood by AutomatedOrdered By: Nancy Wilson on 07-12-2023 Monocyte distribution width Auto (Bld) [Entitic vol] 18.12 % 0.00-20.00 [facility] Monocytes Auto (Bld) [#/Vol] Ordered By: Nancy Wilson on 07-12-2023 Monocytes (Bld) [#/Vol] 1.0 10*3/uL 0.0-0.8 [facility] Monocytes/100 WBC Auto (Bld) Ordered By: Nancy Wilson on 07-12-2023 Monocytes/100 WBC (Bld) 10.2 % . [facility] Natriuretic peptide B [Mass/ Vol]Ordered By: Nancy Wilson on 07-12-2023 Natriuretic peptide B (Bld) [Mass/Vol] 34.0 pg/mL 5-100 [facility] Neutrophils Auto (Bld) [#/Vo l]Ordered By: Nancy Wilson on 07-12-2023 Neutrophils (Bld) [#/Vol] 6.2 10*3/uL 1.8-7.7 [facility] Neutrophils/100 WBC Auto (Bl d)Ordered By: Nancy Wilson on 07-12-2023 Neutrophils/100 WBC (Bld) 65.4 % . [facility] No Panel InformationOrdered By: Nancy Wilson on 07-12-2023 Estimated GFR (CKD-EPI) 42.789 mL/Min [facility] Creatinine Clearance (Chem 54.64 [facility] Nucleated erythrocytes [Pres ence] in Blood by Automated countOrdered By: Nancy Wilson on 07-12-2023 Nucleated RBC Auto Ql (Bld) 0.1 /100{WBC} 0-0.5 [facility] Partial Thromboplastin Timeo n 07-12-2023 aPTT Coag (Bld) [Time] 29.4 s Normal 25.1-36.5 [facility] Comment on above: Result Comment: A he matocrit value greater than 55% may lead to inaccurate results in coagulation testing. Patients having hematocrit values >55% require a special collection tube for coagulation studies. Please contact the laboratory at [phone] for redraw instructions. PERFORMED BY: [facility] [address] [place] [address] PATHOLOGIST WIRELESS NETWORK ENGINEER CLIFFORD LOBATO M.D. Performed By: #### B COAT OPERATOR INSULATOR, CMP, HS TROP, CK, PTT, CBC, PT ####[facility] [address] [place] [address] [facility] Platelet mean volume Auto (B ld) [Entitic vol]Ordered By: Nancy Wilson on 07-12-2023 Platelet mean volume (Bld) [Entitic vol] 9.1 fL 6.6-10.1 [facility] Platelets Auto (Bld) [#/Vol] Ordered By: Nancy Wilson on 07-12-2023 Platelets (Bld) [#/Vol] 233 10*3/uL 150-450 [facility] Potassium [Moles/volume] in Serum or PlasmaOrdered By: Nancy Wilson on 07-12-2023 Potassium [Moles/Vol] 3.9 mmol/L 3.5-5.1 [facility] Protein [Mass/volume] in Ser um or PlasmaOrdered By: Nancy Wilson on 07-12-2023 Protein [Mass/Vol] 7.0 g/dL 6.4-8.9 [facility] Prothrombin Time INRon 07-12 INR Coag (PPP) [Relative time] 1.1 {INR} Normal [facility] Comment on above: Result Comment: INR [...] 3 - 4.5 Performed By: #### B COAT OPERATOR INSULATOR, CMP, HS TROP, CK, PTT, CBC, PT ####[facility] [place] [address] [facility] PT Coag (PPP) [Time] 12.1 s Normal 9.0-12.9 [facility] Comment on above: Result Comment: A he matocrit value greater than 55% may lead to inaccurate results in coagulation testing. Patients having hematocrit values >55% require a special collection tube for coagulation studies. Please contact the laboratory at [phone] for redraw instructions. Performed By: #### B COAT OPERATOR INSULATOR, CMP, HS TROP, CK, PTT, CBC, PT ####[facility] [place] [address] [facility] Prothrombin time (PT)Ordered By: Nancy Wilson on 07-12-2023 PT Coag (PPP) [Time] 12.1 s 9.0-12.9 [facility] Comment on above: A hematocrit value g reater than 55% may lead to inaccurate results in coagulation testing. Patients having hematocrit values >55% require a special collection tube for coagulation studies. Please contact the laboratory at [phone] for redraw instructions. RBC Auto (Bld) [#/Vol]Ordere d By: Nancy Wilson on 07-12-2023 RBC (Bld) [#/Vol] 4.63 10*6/uL 3.90-5.60 [facility] Serum or plasma albumin/glob ulin mass ratioOrdered By: Nancy Wilson on 07-12-2023 Albumin/Globulin [Mass ratio] 1.3 {ratio} [facility] Serum or plasma anion gap de terminationOrdered By: Nancy Wilson on 07-12-2023 Anion gap [Moles/Vol] 13.4 mmol/L 6.0-15.0 [facility] Sodium [Moles/volume] in Ser um or PlasmaOrdered By: Nancy Wilson on 07-12-2023 Sodium [Moles/Vol] 136 mmol/L 136-145 [facility] Troponin I High Sensitivityo n 07-12-2023 Troponin I High Sensitivity 4.6 pg/mL Normal 0.0-20.0 [facility] Comment on above: Result Comment: PERF ORMED BY: [place] [address] PATHOLOGIST WIRELESS NETWORK ENGINEER CLIFFORD LOBATO M.D. Performed By: #### B COAT OPERATOR INSULATOR, CMP, HS TROP, CK, PTT, CBC, PT ####[facility] [address] Troponin I.cardiac [Mass/vol ume] in Serum or Plasma by Detection limit <= 0.01 ng/Ordered By: Nancy Wilson on 07-12-2023 Troponin I.cardiac DL <= 0.01 ng/mL [Mass/Vol] 4.6 pg/mL 0.0-20.0 [facility] Urea nitrogen [Mass/volume] in Serum or PlasmaOrdered By: Nancy Wilson on 07-12-2023 Urea nitrogen [Mass/Vol] 16 mg/dL 7-25 [facility] WBC Auto (Bld) [#/Vol]Ordere d By: Nancy Wilson on 07-12-2023 WBC (Bld) [#/Vol] 9.5 10*3/uL 4.1-10.5 [facility] XR chest 1V portableon 07-12 XR chest 1V portable [facility] [place] [address] XRay Report Signed Patient: Solomon Feldman SR MR#: [id number] : 1965 Acct:[id number] Age/Sex: 57 / M ADM Date: 07/12/23 [...] Sudeep Lind M.D.07/12/2023 5:08 PM Dictation Location: [place] [address] Transcribed By: [facility] 07/12/231707 Dictated By: Sudeep Lind DO 07/12/231706 Signed By: 07/12/231707 [facility] Patient Educationon 06-02-20 23 Patient Education [...] Follow these instructions at home: ? Take kkgu-kim-xdpvsjt and prescription medicines only as told by [...] the medicine (more content not included)... Normal [facility] Retail - Clinical Noteon Retail - Clinical Note [id number]#1.00TIFF [facility] Urology Office/Clinic Noteon 06-02-2023 Urology Office/Clinic Note Chief Complaint S/p to Cysto HPI Staff Sp to C[place] [facility] [place]- Has not noticed any difference- [...] Contact Information SOLEDAD HERRERA, Yeyo Blum, URL [address] [place] [address]- Additional Instructions: 1 month w/ cath volumes [...] heart failure) (more content not included)... Normal [facility] Comment on above: Result Comment: Elec tronically Signed By: Yeyo ROWE MD\.br\Date and Time Signed: 06/02/23 12:16 EST\.br\Electronically Co-Signed By: Mattie Foster.br\Date and Time Co-Signed: 06/02/23 12:04 EST Patient Educationon 05-03-20 Patient Education Normal [facility] Pathology Noteon 05-02-2023 Pathology Note [id number]#1.00TIFF Normal [facility] Lab Reportson 04-14-2023 Lab Reports [id number]#1.00TIFF Normal [facility] Operative Reporton Operative Report [id number]#1.00TIFF Normal [facility] Patient Correspondenceon Patient Correspondence [id number]#1.00TIFF Normal [facility] Lab Reportson 03-31-2023 Lab Reports [id number]#1.00TIFF Normal [facility] RAD - MISCon 03-31-2023 RAD - MISC [id number]#1.00TIFF Normal [facility] Patient Correspondenceon Patient Correspondence [id number]#1.00TIFF Normal [facility] Formson 03-23-2023 Forms [id number]#1.00TIFF [facility] A1C HEMOGLOBINon 03-15-2023 HbA1c (Bld) [Mass fraction] 7.5 % [employer] Other HbA1c (Bld) [Mass fraction]o n 03-15-2023 A1C HEMOGLOBIN [facility] TwtBks Other Lab Reportson 03-09-2023 Lab Reports [id number]#1.00TIFF [facility] Consultation Noteon 02-28-20 Consultation Note [id number]#1.00CD:12 7 [facility] Consent for Procedure/Surger yon 02-15-2023 Consent for Procedure/Surgery [id number]#1.00CD:12 7 Normal [facility] Office Visit (Cardiology)on 02-15-2023 Follow-up visit Diagnoses/Problems [...] in adult Healthy Weight Tips; Status:Complete; Done: [id number] Patient Instructions Please bring all medicines, vitamins, [...] Fall risk assessment c) Not medically indicated -[facility] [address] 250 DO Work Phone: Tobacco use status CP b) No -[facility] y 250 DO Work Phone: Tobacco Screening. Yes [facility] y 250 DO Work Phone: Consent for Procedure/Surger yon 02-14-2023 Consent for Procedure/Surgery [id number]#1.00CD:1 27 [facility] Consent for Procedure/Surgery [id number]#1.00CD:1 27 [facility] Consent for Treatmenton 02-03 Consent for Treatment [id number]#1.00CD:12 7 [facility] IntraOperative Documentson 0 02-14-2023 IntraOperative Documents [id number]#1.00CD:1 27 [facility] IntraOperative Documents [id number]#1.00CD:1 27 [facility] Main OR Intraoperative Recor don 02-14-2023 Main OR Intraoperative Record IntraOp Document Type FTURO Summary Primary Physician: Yeyo ROWE MD Finalized Date/Time: 02/14/23 10:18:58 Pt. Name: MATTEO CHRISTIAN, SOLOMON Aceves/Sex: 1965 Male Med Rec #: [id number] Physician: Yeyo ROWE MD Financial #: [id number] Pt. Type: O Room/Bed: / Admit/Disch: 02/14/23 [...] Sheri Daniel Role Performed Surgeon - Primary Green Lumber Grader - Primary Scrub - Primary Time In 02/14/23 09:29:00 02/14/23 09:29:00 02/14/23 09:29:00 Time Out 02/14/23 09:49:00 02/14/23 09:49:00 02/14/23 09:49:00 Procedure CYSTOSCOPY LOCAL(.) CYSTOSCOPY LOCAL(.) CYSTOSCOPY LOCAL(.) Comments Last Modified By: Chandrika Martínez RN, RN, Chandrika Carrillo RN 02/14/23 09:45:25 02/14/23 09:45:25 02/14/23 09:45:25 Surgical Procedures FTURO Entry 1 Procedure Description Procedure CYSTOSCOPY LOCAL Modifiers . Surgeon Description CYSTOSCOPY Primary Procedure Yes Primary Surgeon SOLEDAD HERRERA, Yeyo Blum Start 02/14/23 09:42:00 Stop 02/14/23 09:45:00 Anesthesia [...] 09:45 Chandrika Martínez RN 02/14/23 10:18 Normal [facility] Main OR Preoperative Recordo n 09-12-2023 Main OR Preoperative Record Holding Area Document Type FTURO Summary Primary Physician: Yeyo ROWE MD Finalized Date/Time: 02/14/23 09:01:37 Pt. Name: MATTEO CHRISTIAN SOLOMON Aceves/Sex: 1965 Male Med Rec #: [id number] Physician: Yeyo ROWE MD Financial #: [id number] Pt. Type: O Room/Bed: / Admit/Disch: 02/14/23 [...] By: Sheri Bolivar RN 02/14/23 09:01 Normal [facility] Operative Reporton Operative Report Patient: Joe FELDMAN SR CARLIE [...] with antibiotic coverage, Follow up arranged. Normal [facility] Comment on above: Result Comment: Elec tronically [...] including vitamins, herbs, eye drops, creams, and dzng-ned-jfocdrg medicines. ? Any problems you or family [...] tells you to take them. ? Taking bdov-ofw-jyfmjdl medicines, vitamins, herbs, and supplements. Surgery safety [...] health care (more content not included)... Normal [facility] Progress Note-Physicianon Progress Note-Physician Patient: SOLOMON FELDMAN [...] mg = 1 tab(s), PRN, SubLingual, q5min [place] 325 mg-5 mg oral tablet 1 tab(s), [...] 278.00 / Possible Fibromyalgia / SNOMED CT [id number]-1187-40X6-3 293400K45O7 / Confirmed Restless leg / ICD-9-CM 333.94 / Confirmed Arthritis / SNOMED CT 77OU1328-7S0K-49R7-9L1A-I ZO4O807H563 / Confirmed Hyperlipidemia / SNOMED CT 23380447 / Confirmed Smoker / SNOMED CT G274VC9C-1501-37M9-6357-X CV4M4160PK4 / Confirmed Added secondary to documentation in Social History. Asthma / SNOMED CT 799346935 / Confirmed COPD type A / SNOMED CT 004588811 / Confirmed Head ache / SNOMED CT 87279054 / Confirmed Heart attack / SNOMED CT 50661098 / Confirmed Heart disease / SNOMED CT 21165779 / Confirmed Heart murmur / SNOMED CT 465932899 / Confirmed Urinary retention / SNOMED CT 372584764 / Confirmed BPH with obstruction/lower urinary tract symptoms / SNOMED CT 5914276103 / Confirmed Orchitis / SNOMED CT 639845132 / Confirmed Gross hematuria / SNOMED CT 365000801 / Confirmed Tobacco use / SNOMED CT QGSI9863-3231-9X39-W6S6-1 57480SN1NL6 / Confirmed Added secondary to social history documentation. Histories Past Medical History: Active Fibromyalgia (J4A909X4-L54O-8064-07Q9- 3386071P42A6) Restless leg (333.94) Arthritis (79ZD1442-1C4N-72Z7-8G5R- DEL5T499L730) Hyperlipidemia (39931690) Resolved HTN [Hypertension] (401.9): Resolved. NIDDM (250.00): Resolved. GERD [Gastroesophageal reflux disease] (530.81): Resolved. CHF (congestive heart failure) (F6924231-7U4H-9R0E-6J51- P534735P3G85): Resolved. [place] (myocardial infarction) (444H5ZGX-94D5-9D2B-8C99- 56580U74D7FS): Resolved. Family History: Diabetes mellitus Mother Heart disease Mother Alcoholism Brother Drug addiction Brother Acute myocardial infarction Mother Grandparent Procedure history: Bilateral Eye Surgery. Comments: 07/10/2014 17:25 Kati Causey RN bilateral cataracts with iol implants Bilateral Carpal Tunnel Surgery. cardiac stents. Appendectomy (970777788). Colonoscopy (986735125). Cataract extraction and insertion of intraocular lens (4331732619). Procedure on back (253834825). Social History Social & Psychosocial Habits Alcohol [...] procedure such (more content not included)... Normal [facility] Comment on above: Result Comment: Elec tronically Signed By: SOLEDAD HERRERA, Yeyo Blum\.br\Date and Time Signed: 02/14/23 09:58 EDT Consent for Treatmenton 09-0 Consent for Treatment [id number]#1.00CD:12 7 [facility] Ambulatory Visit Summaryon 0 01-30-2023 Ambulatory Visit Summary SOLOMON FELDMAN SR :1965 Visit Date:01/30/2023 Ambulatory Visit Instructions Your Diagnosis Urinary retention Gross hematuria BPH with obstruction/lower urinary tract symptoms Orchitis Your Care Team Attending Physician - Yeyo ROWE MD Primary Care Physician - JENARO LYNCH DO This Is Your Medications List Contact prescribing physician if questions or concerns acetaminophen-hydrocodone ([place] 325 mg-5 mg oral tablet) albuterol (ProAir [...] cysto/uros Where: [facility] [address] , [place] [address]- [phone] Medications What How Much When Instructions Unchanged acetaminophen-hydrocodone ([place] 325 mg-5 mg oral tablet) 1 Tablets [...] or vivian (more content not included)... Normal [facility] Patient Educationon 01-31-20 23 Patient Education Urology [...] including vitamins, herbs, eye drops, creams, and yksx-yyu-xsdqyhy medicines. ? Whether you are or may [...] results be (more content not included)... Normal [facility] Urology Office/Clinic Noteon 01-30-2023 Urology Office/Clinic Note [...] When Contact Information SOLEDAD HERRERA, Yeyo Blum, [facility] [address], [place] [address] [phone] Additional Instructions: sched cysto/uros Patient Education Urodynamic Testing Cystoscopy I, Sharri Mora, personally scribed for Dr. Rowe on 01/30/2023 11:24:26. . Documentation recorded by the scribe, Sharri Mora, accurately reflects the services(s) I performed and decisions made by me. Authenticated by Dr. Rowe on 01/30/2023 11:25:58. Problem List/Past Medical History Ongoing Arthritis Asthma BPH with obstruction/lower urinary tract symptoms COPD type A Fibromyalgia Gross hematuria Head ache Heart attack Heart disease Heart murmur Hyperlipidemia Orchitis Restless leg Smoker Urinary retention Historical CHF (congestive heart failure) GERD [Gastroesophageal reflux disease] HTN [Hypertension] [place] (myocardial infarction) NIDDM Procedure/Surgical History Appendectomy, Bilateral [...] mg, BID (more content not included)... Normal [facility] Comment on above: Result Comment: Elec tronically Signed By: Saima Sutton\.br\Date and Time Signed: 01/30/23 11:38 EDT [facility] CARDIAC STRESS/REST INJE CTIONon 01-25-2023 [facility] CARDIAC STRESS/REST INJECTION Patient Name: SOLOMON FELDMAN STUDY: MYOCARDIAL PERFUSION STRESS TEST WITH EXERCISE CONVERTED TO LEXISCAN Performing facility: [facility], [address] [place] [address], [address], [address] Provider: Dolores Feldman RN, RN BONE MARROW TRANSPLANT PCP: Dr. Jenaro Lynch Supervising provider: Pascale Arnold MD, [facility] INDICATION: Anginal equivalent CAD; HISTORY: Gender: M; Age: 57 y/o ; Height: 182.88 cm; Weight: 97.7798021 kg. High Cholesterol; CAD; Diabetes; HTN; Palpitations; Chest Pain; Quit smoking unknown years ago. COMPARISON: Previous nuclear testing completed at [facility]. ACCESSION NUMBER(S): [id number]; [id number]; [id number] ORDERING CLINICIAN: DOLORES FELDMAN TECHNIQUE: ONE DAY [...] Electronically signed by: PASCALE ARNOLD MD Normal [facility] No Panel Informationon 01-25 Normal -[facility] y 250 DO Work Phone: Office [...] Med Order; Status:Hold For - Scheduling; Requested for:[id number]; Radiologist to Determine Optimal Study : Y [...] contact the office if new symptoms arise. COAT OPERATOR INSULATOR after procedure Chief Complaint Routine f/u: 'I [...] Cataract surg (more content not included)... Normal Revl Tobacco Screening.on 023 Adult depression screening assessment No [facility] 600 DO Work Phone: Tobacco use status CPHS b) No [facility] 600 DO Work Phone: Ambulatory Visit Summaryon 0 12-28-2022 Ambulatory Visit Summary MATTEO CHRISTIAN SOLOMON María :1965 Visit Date:12/28/2022 Ambulatory Visit Instructions Your Care Team Attending Physician - SOLEDAD HERRERA, Yeyo Blum Primary Care Physician - JEANRO LYNCH DO This Is Your Medications List acetaminophen-hydrocodone ([place] 325 mg-5 mg oral tablet) albuterol (ProAir [...] Yeyo ROWE MD Where: [facility] Formson 11-24-2022 Forms [id number]:127 Normal [facility] Screenson 11-24-2022 Screens [id number]:1 27 Normal [facility] Patient Educationon 11-24-19 23 Patient Education Urology [...] provider. Document Revised: 08/11/2021 Document Reviewed: 05/07/2021 [email or web address] Patient Education ? 2021 [employer] [facility] Urology Office/Clinic Noteon 11-23-2022 Urology Office/Clinic [...] bid x 3 weeks. Rx sent to [facility] [place]. Follow-up With When Contact Information SOLEDAD HERRERA, Yeyo Blum, URL [facility] [address], [place] [address]- Additional Instructions: 1 month for cath change with nurse then in 2 mos with PRW Patient Education Indwelling Urinary Catheter Insertion, Care After I, Lorie Leblanc, personally scribed for Dr. Rowe on 11/23/2022 12:45:42. . Documentation recorded by the Lorie negronman, accurately reflects the services(s) I performed and decisions made by me. Authenticated by Dr. Rowe on 11/23/2022 12:47:43. Problem List/Past Medical History Ongoing Arthritis Asthma BPH with obstruction/lower urinary tract symptoms COPD type A Fibromyalgia Head ache Heart attack Heart disease Heart murmur Hyperlipidemia Orchitis Restless leg Smoker Urinary retention Historical CHF (congestive heart failure) GERD [Gastroesophageal reflux disease] HTN [Hypertension] [place] (myocardial infarction) NIDDM Procedure/Surgical History Appendectomy, Bilateral Carpal Tunnel Surgery, Bilateral Eye Surgery, cardiac stents, Ca (more content not included)... Normal [facility] Comment on above: Result Comment: Elec tronically Signed By: SOELDAD HERRERA, Yeyo Blum\.br\Date and Time Signed: 11/23/22 12:47 EDT\.br\Electronically Co-Signed By: Lorie Leblanc\.br\Date and Time Co-Signed: 11/23/22 12:46 EDT A1C with Estimated Average Ines levinecharlie 09-27-2022 Glucose [Mass/Vol] 246 mg/dL Normal [facility] Comment on above: Order Comment: Reaso n for Exam Type 2 diabetes mellitus with circulatory disorder Result Comment: PERF ORMED BY: [place] [address] PATHOLOGIST W[employer]LESS [employer]WORK ENGINEER CLIFFORD LOBATO M.D. Performed By: #### A 1C WT eA #### [facility] [address] [place] [address] HbA1c (Bld) [Mass fraction] 10.2 % High 4.3-5.6 [facility] Comment on above: Order Comment: Reaso n for Exam Type 2 diabetes mellitus with circulatory disorder Result Comment: Incr eased risk for diabetes: 5.7 - 6.4 diabetes: >6.4 glycemic control for adults with diabetes: <7.0 Performed By: #### A 1C WT eA #### [facility] [address] [place] [address] Alanine aminotransferase [En zymatic activity/volume] in Serum or PlasmaOrdered By: Jenaro Lynch on 09-27-2022 ALT [Catalytic activity/Vol] 15 U/L 7-52 [facility] Albumin [Mass/volume] in Ser um or Plasma by Bromocresol green (BCG) dye binding methoOrdered By: Jenaro Lynch on 09-27-2022 Albumin BCG dye [Mass/Vol] 4.1 g/dL 3.5-5.7 [facility] Alkaline phosphatase [Enzyma tic activity/volume] in Serum or PlasmaOrdered By: Jenaro Lynch on 09-27-2022 ALP [Catalytic activity/Vol] 116 U/L 34-104 [facility] Aspartate aminotransferase [ Enzymatic activity/volume] in Serum or PlasmaOrdered By: Jenaro Lynch on 09-27-2022 AST [Catalytic activity/Vol] 15 U/L 13-39 [facility] Basophils Auto (Bld) [#/Vol] Ordered By: Jenaro Lynch on 09-27-2022 Basophils (Bld) [#/Vol] 0.1 10*3/uL 0.0-0.2 [facility] Basophils/100 WBC Auto (Bld) Ordered By: Jenaro Lynch on 09-27-2022 Basophils/100 WBC (Bld) 1.1 % . [facility] Bilirubin.total [Mass/volume ] in Serum or PlasmaOrdered By: Jenaro Lynch on 09-27-2022 Bilirubin [Mass/Vol] 0.4 mg/dL 0.3-1.0 [facility] Calcium [Mass/volume] in Ser um or PlasmaOrdered By: Jenaro Lynch on 09-27-2022 Calcium [Mass/Vol] 8.8 mg/dL 8.6-10.3 [facility] Carbon dioxide, total [Moles /volume] in Serum or PlasmaOrdered By: Jenaro Lynch on 09-27-2022 CO2 [Moles/Vol] 27.2 mmol/L 21.0-31.0 [facility] Chloride [Moles/volume] in S ilia or PlasmaOrdered By: Jenaro Lynch on 09-27-2022 Chloride [Moles/Vol] 99 mmol/L 98-107 [facility] Cholesterol [Mass/volume] in Serum or PlasmaOrdered By: Jenaro Lynch on 09-27-2022 Cholesterol [Mass/Vol] 104 mg/dL 140-200 [facility] Comment on above: Chol less than 200 m g/dl low riskChol 201-239 mg/dl borderline riskChol 240 mg/dl and greater high risk Cholesterol in LDL Calc [Mas s/Vol]Ordered By: Jenaro Lynch on 09-27-2022 Cholesterol in LDL [Mass/Vol] TNP [facility] Comment on above: Test not performed Cholesterol in LDL [Mass/vol ume] in Serum or PlasmaOrdered By: Jenaro Lynch on 09-27-2022 Cholesterol in LDL [Mass/Vol] 38 mg/dL 0-100 [facility] Comment on above: LDL ATP III CLASSIFI CATIONLDL less than 100 mg/dL OptimalLDL 100-129 mg/dL Near or above optimalLDL 130-159 mg/dL Borderline highLDL 160-189 mg/dL HighLDL greater than 189 mg/dL Very high Cholesterol in VLDL Calc [Ma ss/Vol]Ordered By: Jenaro Lynch on 09-27-2022 Cholesterol in VLDL [Mass/Vol] 99 mg/dL [facility] Complete Blood Count Auto Di ffon 09-27-2022 Basophils (Bld) [#/Vol] 0.1 10*3/uL Normal 0.0-0.2 [facility] Comment on above: Order Comment: Reaso n for Exam Hyperlipidemia;Type 2 diabetes mellitus with circulatory dis Result Comment: PERF ORMED BY: [place] [address] PATHOLOGIST W[employer] ENGINEER CLIFFORD LOBATO M.D. Performed By: #### C BC #### [facility] [address] Basophils/100 WBC (Bld) 1.1 % Normal . [facility] Comment on above: Order Comment: Reaso n for Exam Hyperlipidemia;Type 2 diabetes mellitus with circulatory dis Performed By: #### C BC #### [facility] [address] [place] [address] [place] Eosinophils (Bld) [#/Vol] 0.7 10*3/uL High 0.0-0.45 [facility] Comment on above: Order Comment: Reaso n for Exam Hyperlipidemia;Type 2 diabetes mellitus with circulatory dis Performed By: #### C BC #### [facility] [address] Eosinophils/100 WBC (Bld) 5.9 % Normal . [facility] Comment on above: Order Comment: Reaso n for Exam Hyperlipidemia;Type 2 diabetes mellitus with circulatory dis Performed By: #### C BC #### [facility] [address] Erythrocyte distribution width (RBC) [Ratio] 16.0 % High 12.0-14.8 [facility] Comment on above: Order Comment: Reaso n for Exam Hyperlipidemia;Type 2 diabetes mellitus with circulatory dis Performed By: #### C BC #### [address] Hematocrit (Bld) [Volume fraction] 41.0 % Normal 38.8-50.0 [facility] Comment on above: Order Comment: Reaso n for Exam Hyperlipidemia;Type 2 diabetes mellitus with circulatory dis Performed By: #### C BC #### [address] Hemoglobin (Bld) [Mass/Vol] 13.2 g/dL Normal 13.0-17.0 [facility] Comment on above: Order Comment: Reaso n for Exam Hyperlipidemia;Type 2 diabetes mellitus with circulatory dis Performed By: #### C BC #### [address] Lymphocytes (Bld) [#/Vol] 2.3 10*3/uL Normal 1.00-4.8 [facility] Comment on above: Order Comment: Reaso n for Exam Hyperlipidemia;Type 2 diabetes mellitus with circulatory dis Performed By: #### C BC #### [place] [address] [place] Lymphocytes/100 WBC (Bld) 18.2 % Normal . [facility] Comment on above: Order Comment: Reaso n for Exam Hyperlipidemia;Type 2 diabetes mellitus with circulatory dis Performed By: #### C BC #### [address] MCH (RBC) [Entitic mass] 23.9 pg Low 27.5-35.2 [facility] Comment on above: Order Comment: Reaso n for Exam Hyperlipidemia;Type 2 diabetes mellitus with circulatory dis Performed By: #### C BC #### [facility] [address] MCV (RBC) [Entitic vol] 74.3 fL Low 83.5-101 [facility] Comment on above: Order Comment: Reaso n for Exam Hyperlipidemia;Type 2 diabetes mellitus with circulatory dis Performed By: #### C BC #### [facility] [address] Mean Corpuscular HGB Conc 32.2 g/dL Low 32.5-35.6 [facility] Comment on above: Order Comment: Reaso n for Exam Hyperlipidemia;Type 2 diabetes mellitus with circulatory dis Performed By: #### C BC #### [facility] [address] Monocytes (Bld) [#/Vol] 1.0 10*3/uL High 0.0-0.8 [facility] Comment on above: Order Comment: Reaso n for Exam Hyperlipidemia;Type 2 diabetes mellitus with circulatory dis Performed By: #### C BC #### [facility] [address] [place] [address] [place] Monocytes/100 WBC (Bld) 7.9 % Normal . [facility] Comment on above: Order Comment: Reaso n for Exam Hyperlipidemia;Type 2 diabetes mellitus with circulatory dis Performed By: #### C BC #### [facility] [address] [place] [address] [place] Neutrophils (Bld) [#/Vol] 8.3 10*3/uL High 1.8-7.7 [facility] Comment on above: Order Comment: Reaso n for Exam Hyperlipidemia;Type 2 diabetes mellitus with circulatory dis Performed By: #### C BC #### [facility] [address] [place] [address] [place] Neutrophils/100 WBC (Bld) 66.9 % Normal . [facility] Comment on above: Order Comment: Reaso n for Exam Hyperlipidemia;Type 2 diabetes mellitus with circulatory dis Performed By: #### C BC #### [facility] [address] NRBC% 0.1 /100{WBC} Normal 0-0.5 [facility] Comment on above: Order Comment: Reaso n for Exam Hyperlipidemia;Type 2 diabetes mellitus with circulatory dis Performed By: #### C BC #### [facility] [address] Platelet mean volume (Bld) [Entitic vol] 9.1 fL Normal 6.6-10.1 [facility] Comment on above: Order Comment: Reaso n for Exam Hyperlipidemia;Type 2 diabetes mellitus with circulatory dis Performed By: #### C BC #### [facility] [address] Platelets (Bld) [#/Vol] 209 10*3/uL Normal 150-450 [facility] Comment on above: Order Comment: Reaso n for Exam Hyperlipidemia;Type 2 diabetes mellitus with circulatory dis Performed By: #### C BC #### [facility] [address] RBC (Bld) [#/Vol] 5.52 10*6/uL Normal 3.90-5.60 [facility] Comment on above: Order Comment: Reaso n for Exam Hyperlipidemia;Type 2 diabetes mellitus with circulatory dis Performed By: #### C BC #### [facility] [address] WBC (Bld) [#/Vol] 12.4 10*3/uL High 4.1-10.5 [facility] Comment on above: Order Comment: Reaso n for Exam Hyperlipidemia;Type 2 diabetes mellitus with circulatory dis Performed By: #### C BC #### [facility] [address] Comprehensive Metabolic Pane bárbara 09-27-2022 Albumin [Mass/Vol] 4.1 g/dL Normal 3.5-5.7 [facility] Comment on above: Order Comment: Reaso n for Exam Hyperlipidemia;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 Reason for Exam Gout Performed By: #### T SH3, LDLD, CMP, URIC, LIPID #### [facility] [address] Albumin/Globulin [Mass ratio] 1.4 {ratio} Normal [facility] Comment on above: Order Comment: Reaso n for Exam Hyperlipidemia;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 Reason for Exam Gout Performed By: #### T SH3, LDLD, CMP, URIC, LIPID #### [facility] [address] ALP [Catalytic activity/Vol] 116 U/L High 34-104 [facility] Comment on above: Order Comment: Reaso n for Exam Hyperlipidemia;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 Reason for Exam Gout Performed By: #### T SH3, LDLD, CMP, URIC, LIPID #### [facility] [address] ALT [Catalytic activity/Vol] 15 U/L Normal 7-52 [facility] Comment on above: Order Comment: Reaso n for Exam Hyperlipidemia;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 Reason for Exam Gout Performed By: #### T SH3, LDLD, CMP, URIC, LIPID #### [facility] [address] Anion gap [Moles/Vol] 14.1 mmol/L Normal 6.0-15.0 [facility] Comment on above: Order Comment: Reaso n for Exam Hyperlipidemia;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 Reason for Exam Gout Performed By: #### T SH3, LDLD, CMP, URIC, LIPID #### [facility] [address] [place] [address] [place] AST [Catalytic activity/Vol] 15 U/L Normal 13-39 [facility] Comment on above: Order Comment: Reaso n for Exam Hyperlipidemia;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 Reason for Exam Gout Performed By: #### T SH3, LDLD, CMP, URIC, LIPID #### [facility] [address] Bilirubin [Mass/Vol] 0.4 mg/dL Normal 0.3-1.0 [facility] Comment on above: Order Comment: Reaso n for Exam Hyperlipidemia;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 Reason for Exam Gout Performed By: #### T SH3, LDLD, CMP, URIC, LIPID #### [facility] [address] Calcium [Mass/Vol] 8.8 mg/dL Normal 8.6-10.3 [facility] Comment on above: Order Comment: Reaso n for Exam Hyperlipidemia;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 Reason for Exam Gout Performed By: #### T SH3, LDLD, CMP, URIC, LIPID #### [facility] [address] Chloride [Moles/Vol] 99 mmol/L Normal 98-107 [facility] Comment on above: Order Comment: Reaso n for Exam Hyperlipidemia;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 Reason for Exam Gout Performed By: #### T SH3, LDLD, CMP, URIC, LIPID #### [facility] [address] CO2 [Moles/Vol] 27.2 mmol/L Normal 21.0-31.0 [facility] Comment on above: Order Comment: Reaso n for Exam Hyperlipidemia;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 Reason for Exam Gout Performed By: #### T SH3, LDLD, CMP, URIC, LIPID #### [facility] [address] Creatinine [Mass/Vol] 1.84 mg/dL High 0.70-1.30 [facility] Comment on above: Order Comment: Reaso n for Exam Hyperlipidemia;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 Reason for Exam Gout Performed By: #### T SH3, LDLD, CMP, URIC, LIPID #### [facility] [address] [place] [address] [place] GFR/1.73 sq M.predicted MDRD (S/P/Bld) [Vol rate/Area] 42.232 mL/min/{1.73_m2} Normal [facility] Comment on above: Order Comment: Reaso n for Exam Hyperlipidemia;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 Reason for Exam Gout Performed By: #### T SH3, LDLD, CMP, URIC, LIPID #### [facility] [address] Globulin (S) [Mass/Vol] 2.9 g/dL Normal [facility] Comment on above: Order Comment: Reaso n for Exam Hyperlipidemia;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 Reason for Exam Gout Performed By: #### T SH3, LDLD, CMP, URIC, LIPID #### [facility] [address] Glucose [Mass/Vol] 225 mg/dL High 70-100 [facility] Comment on above: Order Comment: Reaso n for Exam Hyperlipidemia;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 Reason for Exam Gout Result Comment: [facility] Glucose Reference Range is dependent on time and content of last meal. Glucose of more than 200 mg/dL in a nonstressed, ambulatory subject supports the diagnosis of Diabetes Mellitus. ADA recommended reference range Performed By: #### T SH3, LDLD, CMP, URIC, LIPID #### [facility] [address] [place] [address] Potassium [Moles/Vol] 4.3 mmol/L Normal 3.5-5.1 [facility] Comment on above: Order Comment: Reaso n for Exam Hyperlipidemia;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 Reason for Exam Gout Performed By: #### T SH3, LDLD, CMP, URIC, LIPID #### [facility] [address] [place] [address] Protein [Mass/Vol] 7.0 g/dL Normal 6.4-8.9 [facility] Comment on above: Order Comment: Reaso n for Exam Hyperlipidemia;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 Reason for Exam Gout Performed By: #### T SH3, LDLD, CMP, URIC, LIPID #### [facility] [address] [place] [id number] [place] Sodium [Moles/Vol] 136 mmol/L Normal 136-145 [facility] Comment on above: Order Comment: Reaso n for Exam Hyperlipidemia;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 Reason for Exam Gout Performed By: #### T SH3, LDLD, CMP, URIC, LIPID #### [facility] [address] [place] [address] [place] Urea nitrogen [Mass/Vol] 15 mg/dL Normal 7-25 [facility] Comment on above: Order Comment: Reaso n for Exam Hyperlipidemia;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 Reason for Exam Gout Performed By: #### T SH3, LDLD, CMP, URIC, LIPID #### [facility] [address] [place] [id number] [facility] Creatinine [Mass/volume] in Serum or PlasmaOrdered By: Jenaro Lynch on 09-27-2022 Creatinine [Mass/Vol] 1.84 mg/dL 0.70-1.30 [facility] Eosinophils Auto (Bld) [#/Vo l]Ordered By: Jenaro Lynch on 09-27-2022 Eosinophils (Bld) [#/Vol] 0.7 10*3/uL 0.0-0.45 [facility] Eosinophils/100 WBC Auto (Bl d)Ordered By: Jenaro Lynch on 09-27-2022 Eosinophils/100 WBC (Bld) 5.9 % . [facility] Erythrocyte distribution wid th Auto (RBC) [Ratio]Ordered By: Jenaro Lynch on 09-27-2022 Erythrocyte distribution width (RBC) [Ratio] 16.0 % 12.0-14.8 [facility] Globulin Calc (S) [Mass/Vol] Ordered By: Jenaro Lynch on 09-27-2022 Globulin (S) [Mass/Vol] 2.9 g/dL [facility] Glucose [Mass/volume] in Ser um or PlasmaOrdered By: Jenaro Lynch on 09-27-2022 Glucose [Mass/Vol] 225 mg/dL 70-100 [facility] Comment on above: ADA recommended refe rence rangeRandom Glucose Reference Range is dependent on time and content of last meal. Glucose of more than 200 mg/dL in a nonstressed, ambulatory subject supports the diagnosis of Diabetes Mellitus. Hematocrit Auto (Bld) [Volum e fraction]Ordered By: Jenaro Lynch on 09-27-2022 Hematocrit (Bld) [Volume fraction] 41.0 % 38.8-50.0 [facility] Hemoglobin [Mass/volume] in BloodOrdered By: Jenaro Lynch on 09-27-2022 Hemoglobin (Bld) [Mass/Vol] 13.2 g/dL 13.0-17.0 [facility] LDL Cholesterol Measuredon 0 09-27-2022 LDL Cholesterol Measured 38 mg/dL Normal 0-100 [facility] Comment on above: Order Comment: [...] #### T SH3, LDLD, CMP, URIC, LIPID ####[facility] [id number] [place] [address] [place] Leukocytes [#/volume] correc jorge for nucleated erythrocytes in Blood by Automated counOrdered By: Jenaro Lynch on 09-27-2022 WBC corrected for nucl RBC Auto (Bld) [#/Vol] 12.4 10*3/uL 4.1-10.5 [facility] Lipid Panelon 09-27-2022 Cholesterol [Mass/Vol] 104 mg/dL Low 140-200 [facility] Comment on above: Order Comment: Reaso n for Exam Hyperlipidemia;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 Reason for Exam Gout Result Comment: Chol less than 200 mg/dl low risk Chol 201-239 mg/dl borderline risk Chol 240 mg/dl and greater high risk Performed By: #### T SH3, LDLD, CMP, URIC, LIPID #### [facility] [address] [place] [address] [place] Cholesterol in HDL [Mass/Vol] 21 mg/dL Low 29-71 [facility] Comment on above: Order Comment: Reaso n for Exam Hyperlipidemia;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 Reason for Exam Gout Result Comment: HDL CHOL ATP-III CLASSIFICATION Cardiovascular Risk HDL > or equal to 60 mg/dL LOW HDL < 40 mg/dL HIGH Performed By: #### T SH3, LDLD, CMP, URIC, LIPID #### [facility] [address] [place] [address] [place] Cholesterol.total/Chol esterol in HDL [Mass ratio] 5.0 {ratio} Normal <5.0 [facility] Comment on above: Order Comment: Reaso n for Exam Hyperlipidemia;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 Reason for Exam Gout Performed By: #### T SH3, LDLD, CMP, URIC, LIPID #### [facility] [address] LDL Cholesterol,Calculated Not performed Normal 0-100 [facility] Comment on above: Order Comment: Reaso n for Exam Hyperlipidemia;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 Reason for Exam Gout Performed By: #### T SH3, LDLD, CMP, URIC, LIPID #### [facility] [address] Triglyceride w/Reflex 497 mg/dL High 0-149 [facility] Comment on above: Order Comment: [...] T SH3, LDLD, CMP, URIC, LIPID #### [facility] [address] VLDL CHOLESTEROL 99 mg/dL Normal [facility] Comment on above: Order Comment: Reaso n for Exam Hyperlipidemia;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 Reason for Exam Gout Performed By: #### T SH3, LDLD, CMP, URIC, LIPID #### [facility] [address] Lymphocytes Auto (Bld) [#/Vo l]Ordered By: Jenaro Lynch on 09-27-2022 Lymphocytes (Bld) [#/Vol] 2.3 10*3/uL 1.00-4.8 [facility] Lymphocytes/100 WBC Auto (Bl d)Ordered By: Jenaro Lynch on 09-27-2022 Lymphocytes/100 WBC (Bld) 18.2 % . [facility] MCH Auto (RBC) [Entitic mass ]Ordered By: Jenaro Lynch on 09-27-2022 MCH (RBC) [Entitic mass] 23.9 pg 27.5-35.2 [facility] MCHC Auto (RBC) [Mass/Vol]Or dered By: Jenaro Lynch on 09-27-2022 MCHC (RBC) [Mass/Vol] 32.2 g/dL 32.5-35.6 [facility] MCV Auto (RBC) [Entitic vol] Ordered By: Jenaro Lynch on 09-27-2022 MCV (RBC) [Entitic vol] 74.3 fL 83.5-101 [facility] Monocytes Auto (Bld) [#/Vol] Ordered By: Jenaro Lynch on 09-27-2022 Monocytes (Bld) [#/Vol] 1.0 10*3/uL 0.0-0.8 [facility] Monocytes/100 WBC Auto (Bld) Ordered By: Jenaro Lynch on 09-27-2022 Monocytes/100 WBC (Bld) 7.9 % . [facility] Neutrophils Auto (Bld) [#/Vo l]Ordered By: Jenaro Lynch on 09-27-2022 Neutrophils (Bld) [#/Vol] 8.3 10*3/uL 1.8-7.7 [facility] Neutrophils/100 WBC Auto (Bl d)Ordered By: Jenaro Lynch on 09-27-2022 Neutrophils/100 WBC (Bld) 66.9 % . [facility] No Panel InformationOrdered By: Jenaro Lynch on 09-27-2022 Estimated GFR (CKD-EPI) 42.232 mL/Min [facility] Creatinine Clearance (Chem N/A [facility] Nucleated erythrocytes [Pres ence] in Blood by Automated countOrdered By: Jenaro Lynch on 09-27-2022 Nucleated RBC Auto Ql (Bld) 0.1 /100{WBC} 0-0.5 [facility] Platelet mean volume Auto (B ld) [Entitic vol]Ordered By: Jenaro Lynch on 09-27-2022 Platelet mean volume (Bld) [Entitic vol] 9.1 fL 6.6-10.1 [facility] Platelets Auto (Bld) [#/Vol] Ordered By: Jenaro Lynch on 09-27-2022 Platelets (Bld) [#/Vol] 209 10*3/uL 150-450 [facility] Potassium [Moles/volume] in Serum or PlasmaOrdered By: Jenaro Lynch on 09-27-2022 Potassium [Moles/Vol] 4.3 mmol/L 3.5-5.1 [facility] Protein [Mass/volume] in Ser um or PlasmaOrdered By: Jenaro Lynch on 09-27-2022 Protein [Mass/Vol] 7.0 g/dL 6.4-8.9 [facility] RBC Auto (Bld) [#/Vol]Ordere d By: Jenaro Lynch on 09-27-2022 RBC (Bld) [#/Vol] 5.52 10*6/uL 3.90-5.60 [facility] Serum or plasma albumin/glob ulin mass ratioOrdered By: Jenaro Lynch on 09-27-2022 Albumin/Globulin [Mass ratio] 1.4 {ratio} [facility] Serum or plasma anion gap de terminationOrdered By: Jenaro Lynch on 09-27-2022 Anion gap [Moles/Vol] 14.1 mmol/L 6.0-15.0 [facility] Serum or plasma high density lipoprotein (HDL) cholesterol measurementOrdered By: Jenaro Lynch on 09-27-2022 Cholesterol in HDL [Mass/Vol] 21 mg/dL 29-71 [facility] Comment on above: HDL CHOL ATP-III CLA SSIFICATION Cardiovascular RiskHDL > or equal to 60 mg/dL LOWHDL < 40 mg/dL HIGH Serum or plasma total choles terol/high density lipoprotein (HDL) cholesterol mass ratOrdered By: Jenaro Lynch on 09-27-2022 Cholesterol.total/Chol esterol in HDL [Mass ratio] 5.0 {ratio} <5.0 [facility] Sodium [Moles/volume] in Ser um or PlasmaOrdered By: Jenaro Lynch on 09-27-2022 Sodium [Moles/Vol] 136 mmol/L 136-145 [facility] Thyroid Stimulating Hormoneo n 09-27-2022 TSH Qn 3.62 m[IU]/L Normal 0.45-5.33 [facility] Comment on above: Order Comment: Reaso n for Exam Hyperlipidemia;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 Reason for Exam Gout Result Comment: PERF ORMED BY: [facility] [address] [place] [address] PATHOLOGIST [employer] ENGINEER CLIFFORD LOBATO M.D. Performed By: #### T SH3, LDLD, CMP, URIC, LIPID #### [facility] [address] Order Comment: Reaso n for Exam Hyperlipidemia;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 Reason for Exam Gout Performed By: #### T SH3, LDLD, CMP, URIC, LIPID ####[facility] [id number] Thyrotropin [Units/volume] i n Serum or PlasmaOrdered By: Jenaro Lynch on 09-27-2022 TSH Qn 3.62 m[IU]/L 0.45-5.33 [facility] Triglyceride [Mass/volume] i n Serum or PlasmaOrdered By: Jenaro Lynch on 09-27-2022 Triglyceride [Mass/Vol] 497 mg/dL 0-149 [facility] Comment on above: If the triglyceride [...] on 09-27-2022 Urate [Mass/Vol] 6.2 mg/dL 2.4-7.6 [facility] Urea nitrogen [Mass/volume] in Serum or PlasmaOrdered By: Jenaro Lynch on 09-27-2022 Urea nitrogen [Mass/Vol] 15 mg/dL 12-27 [facility] Uric Acidon 09-27-2022 Urate [Mass/Vol] 6.2 mg/dL Normal 2.4-7.6 [facility] Comment on above: Order Comment: Reaso n for Exam Hyperlipidemia;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 Reason for Exam Gout Performed By: #### T SH3, LDLD, CMP, URIC, LIPID #### [facility] [address] [place] [id number] [facility] WBC Auto (Bld) [#/Vol]Ordere d By: Jenaro Lynch on 09-27-2022 WBC (Bld) [#/Vol] 12.4 10*3/uL 4.1-10.5 [facility] MR head/brain wo conon 09-03 MR head/brain wo con [facility] [place] [address] [place] [address] MRI Report Signed Patient: Solomon Feldman SR MR#: [id number] : 1965 Acct:[id number] Age/Sex: 57 / M ADM Date: 09/02/22 Loc: MR Room: Type: [facility] Attending Dr: Shana Mclaughlin PA-C Copies to: [...] CHANGES. Impression dictated by: Negro Marks Jr., D.O.09/03/2022 8:37 AM Dictation Location: [place] [address] Transcribed By: [facility] 09/03/2237 Dictated By: Negro Marks Jr, DO 09/03/22 0830 Signed By: 09/03/22 0837 [facility] A1C HEMOGLOBINon 02-15-2022 HbA1c (Bld) [Mass fraction] % [employer] Other HbA1c (Bld) [Mass fraction]o n 02-15-2022 A1C HEMOGLOBIN [facility] Other Tobacco Screening.on 022 Adult depression screening assessment No [facility] [facility] [address] DO Work Phone: Tobacco use status [facility]PH[facility] b) No [facility] [facility] [address] DO Work Phone: A1C HEMOGLOBINon 07-27-2021 HbA1c (Bld) [Mass fraction] 11.8 % [employer] Other HbA1c (Bld) [Mass fraction]o n 07-27-2021 A1C HEMOGLOBIN Bety[facility] Other Vital Signs Date Time Vital Sign Value Performing Clinician Facility 07-12-2023 18:03-0500 Diastolic blood pressure 73 mm[Hg] DO Jenarogorge Fraustos Work Phone: [facility] 07-12-2023 18:03-0500 Heart rate 76 /min DO Jenaro Jetts Work Phone: [facility] 07-12-2023 18:03-0500 Respiratory rate 20 /min DO Jenaro Jetts Work Phone: [facility] 07-12-2023 18:03-0500 SaO2% (BldA) [Mass fraction] 98 % DO Jenaro Jetts Work Phone: [facility] 07-12-2023 18:03-0500 Systolic blood pressure 125 mm[Hg] DO Jenaro Kuns Work Phone: [facility] 07-12-2023 16:15-0500 Body height 182.88 cm DO Jenaro Kuns Work Phone: [facility] 07-12-2023 16:15-0500 Body temperature 98.9 [degF] DO Jenaro Jetts Work Phone: [facility] 07-12-2023 16:15-0500 Body weight 99.25 kg DO Jenaro Syed Work Phone: [facility] 06-02-2023 10:56-0500 Blood Pressure Location Yeyo ROWE [facility] 06-02-2023 10:56-0500 Body temperature 96.98 [degF] Yeyo ROWE [facility] 06-02-2023 10:56-0500 Diastolic blood pressure 84 mm[Hg] Yeyo ROWE [facility] 06-02-2023 10:56-0500 Heart rate 68 /min Yeyo ROWE [facility] 06-02-2023 10:56-0500 Systolic blood pressure 124 mm[Hg] Yeyo ROWE [facility] 04-06-2023 13:15-0400 Body height 180.34 cm Jenaro Lynch Other [facility] [employer] Other 04-06-2023 13:15-0400 Body mass index (BMI) [Ratio] 29.43 kg/m2 Jenaro Lynch Other [employer] Other 04-06-2023 13:15-0400 Body weight 95.71 kg Jenaro Lynch Other [employer] Other 04-06-2023 13:15-0400 Diastolic blood pressure 70 mm[Hg] Jenaro Lynch Other [employer] Other 04-06-2023 13:15-0400 Respiratory rate 18 /min Jenaro Lynch Other [employer] Other 04-06-2023 13:15-0400 SaO2% (BldA) [Mass fraction] 97 % Jenaro Lynch Other [employer] Other 04-06-2023 13:15-0400 Systolic blood pressure 100 mm[Hg] Jenaro Lynch Other [employer] Other 03-15-2023 08:30-0400 Body height 180.34 cm Jenaro Lynch Other [employer] Other 03-15-2023 08:30-0400 Body mass index (BMI) [Ratio] 29.01 kg/m2 Jenaro Lynch Other [employer] Other 03-15-2023 08:30-0400 Body weight 94.35 kg Jenaro Lynch Other [employer] Other 03-15-2023 08:30-0400 Diastolic blood pressure 62 mm[Hg] Jenaro Lynch Other [employer] Other 03-15-2023 08:30-0400 Respiratory rate 16 /min Jenaro Lynch Other [employer] Other 03-15-2023 08:30-0400 SaO2% (BldA) [Mass fraction] 97 % Jenaro Lynch Other [employer] Other 03-15-2023 08:30-0400 Systolic blood pressure 88 mm[Hg] Jenaro Lynch Other [employer] Other 02-15-2023 10:04-0400 Body height 182.88 cm Jenaro Lynch Work Phone: [facility] 250 DO Work Phone: 02-15-2023 10:04-0400 Body mass index (BMI) [Ratio] 28.62 kg/m2 Jenaro Lynch Work Phone: [facility] 250 DO Work Phone: 02-15-2023 10:04-0400 Body surface area Derived from formula 2.18 m2 Jenaro Lynch Work Phone: [facility] 250 DO Work Phone: 02-15-2023 10:04-0400 Body weight 95.71 kg Jenaro Lynch Work Phone: [facility] 250 DO Work Phone: 02-15-2023 10:04-0400 Diastolic blood pressure 70 mm[Hg] Jenaro Lynch Work Phone: [facility] 250 DO Work Phone: 02-15-2023 10:04-0400 Heart rate 76 /min Jenaro Lynch Work Phone: [facility] 250 DO Work Phone: 02-15-2023 10:04-0400 Systolic blood pressure 102 mm[Hg] Jenaro Mari Lynch Work Phone: [facility] 250 DO Work Phone: 01-30-2023 10:23-0400 Blood Pressure Location Yeyo ROWE [facility] 01-30-2023 10:23-0400 Diastolic blood pressure 74 mm[Hg] Yeyo ROWE [facility] 01-30-2023 10:23-0400 Heart rate 68 /min Yeyo ROWE [facility] 01-30-2023 10:23-0400 Respiratory rate 16 /min Yeyo ROWE [facility] 01-30-2023 10:23-0400 Systolic blood pressure 130 mm[Hg] Yeyo ROWE [facility] 01-11-2023 15:08-0400 Body height 180.34 cm Jenaro Lynch Work Phone: [facility] 600 DO Work Phone: 01-11-2023 15:08-0400 Body mass index (BMI) [Ratio] 30.13 kg/m2 Jenaro Lynch Work Phone: [facility] 600 DO Work Phone: 01-11-2023 15:08-0400 Body surface area Derived from formula 2.18 m2 Jenaro Lynch Work Phone: [facility] 600 DO Work Phone: 01-11-2023 15:08-0400 Body weight 97.98 kg Jenaro Lynch Work Phone: [facility] 600 DO Work Phone: 01-11-2023 15:08-0400 Diastolic blood pressure 86 mm[Hg] Jenaro Lynch Work Phone: [facility] 600 DO Work Phone: 01-11-2023 15:08-0400 Heart rate 74 /min Jenaro Lynch Work Phone: [facility] 600 DO Work Phone: 01-11-2023 15:08-0400 Systolic blood pressure 122 mm[Hg] Jenaro Lynch Work Phone: [facility] 600 DO Work Phone: 12-01-2022 12:45-0400 Body height 180.34 cm Jenaro Lynch Other [place] [employer] Other 12-01-2022 12:45-0400 Body mass index (BMI) [Ratio] 29.73 kg/m2 Jenaro Lynch Other [facility] [employer] Other 12-01-2022 12:45-0400 Body weight 96.71 kg Jenaro Lynch Other [facility] [employer] Other 12-01-2022 12:45-0400 Diastolic blood pressure 70 mm[Hg] Jenaro Lynch Other [place] [employer] Other 12-01-2022 12:45-0400 Respiratory rate 18 /min Jenaro Lynch Other [employer] Other 12-01-2022 12:45-0400 SaO2% (BldA) [Mass fraction] 94 % Jenaro Lynch Other [employer] Other 12-01-2022 12:45-0400 Systolic blood pressure 122 mm[Hg] Jenaro Lynch Other [place] [employer] Other 11-23-2022 11:38-0400 Blood Pressure Location Yeyo ROWE [facility] 11-23-2022 11:38-0400 Diastolic blood pressure 85 mm[Hg] Yeyo ROWE [facility] 11-23-2022 11:38-0400 Heart rate 76 /min Yeyo ROWE [facility] 11-23-2022 11:38-0400 Systolic blood pressure 130 mm[Hg] Yeyo ROWE [facility] 07-04-2022 10:30-0500 Body height 180.34 cm Jenaro Lynch Other [facility] [employer] Other 07-04-2022 10:30-0500 Body mass index (BMI) [Ratio] 29.43 kg/m2 Jenaro Lynch Other [employer] Other 07-04-2022 10:30-0500 Body weight 95.71 kg Jenaro Lynch Other [employer] Other 07-04-2022 10:30-0500 Diastolic blood pressure 86 mm[Hg] Jenaro Lynch Other [employer] Other 07-04-2022 10:30-0500 Respiratory rate 16 /min Jenaro Lynch Other [employer] Other 07-04-2022 10:30-0500 Systolic blood pressure 146 mm[Hg] Jenaro Lynch Other [employer] Other 02-15-2022 13:45-0400 Body height 180.34 cm Jenaro Lynch Other [employer] Other 02-15-2022 13:45-0400 Body mass index (BMI) [Ratio] 30.12 kg/m2 Jenaro Lynch Other [employer] Other 02-15-2022 13:45-0400 Body weight 97.98 kg Jenaro Lynch Other [facility] [employer] Other 02-15-2022 13:45-0400 Diastolic blood pressure 62 mm[Hg] Jenaro Lynch Other [place] [employer] Other 02-15-2022 13:45-0400 Respiratory rate 16 /min Jenaro Lynch Other [place] [employer] Other 02-15-2022 13:45-0400 SaO2% (BldA) [Mass fraction] 96 % Jenaro Lynch Other [place] [employer] Other 02-15-2022 13:45-0400 Systolic blood pressure 100 mm[Hg] Jenaro Lynch Other [place] [employer] Other 10-26-2021 10:01-0400 Body height 180.34 cm Jenaro Lynch [facility] Work Phone: 10-26-2021 10:01-0400 Body mass index (BMI) [Ratio] 29.99 kg/m2 Jenaro Lynch Work Phone: [facility] [place] 250 DO Work Phone: 10-26-2021 10:01-0400 Body surface area Derived from formula 2.17 m2 Jenaro Lynch Work Phone: [facility] [place] 250 DO Work Phone: 10-26-2021 10:01-0400 Body weight 97.52 kg Jenaro Mari Lynch Work Phone: [facility] [place] 250 DO Work Phone: 10-26-2021 10:01-0400 Diastolic blood pressure 70 mm[Hg] Jenaro Mari Lynch Work Phone: [facility] 250 DO Work Phone: 10-26-2021 10:01-0400 Heart rate 68 /min Jenaro Lynch Work Phone: [facility] [place] 250 DO Work Phone: 10-26-2021 10:01-0400 Systolic blood pressure 104 mm[Hg] Jenaro Lynch Work Phone: [facility] [employer] 250 DO Work Phone: 10-19-2021 12:20-0400 Body height 180.34 cm Amina Fagan Other [employer] Other 10-19-2021 12:20-0400 Body mass index (BMI) [Ratio] 30.65 kg/m2 Amina [employer] Other [employer] Other 10-19-2021 12:20-0400 Body temperature 96.8 [degF] [facility]a [facility] Other [employer] Other 10-19-2021 12:20-0400 Body weight 99.7 kg Amina [employer] Other [employer] Other 10-19-2021 12:20-0400 Diastolic blood pressure 71 mm[Hg] [facility] Other [employer] Other 10-19-2021 12:20-0400 Respiratory rate 18 /min Amina [employer] Other [employer] Other 10-19-2021 12:20-0400 SaO2% (BldA) [Mass fraction] 98 % Amina Kinseys Other [employer] Other 10-19-2021 12:20-0400 Systolic blood pressure 111 mm[Hg] Amina Fagan Other [employer] Other 07-27-2021 14:00-0500 Body height 180.34 cm Jenaro Lynch Other [employer] Other 07-27-2021 14:00-0500 Body mass index (BMI) [Ratio] 30.4 kg/m2 Jenaro Lynch Other [employer] Other 07-27-2021 14:00-0500 Body weight 98.88 kg Jenaro Lynch Other [employer] Other 07-27-2021 14:00-0500 Diastolic blood pressure 76 mm[Hg] Jenaro Lynch Other [employer] Other 07-27-2021 14:00-0500 Respiratory rate 18 /min Jenaro Lynch Other [employer] Other 07-27-2021 14:00-0500 SaO2% (BldA) [Mass fraction] 98 % Jenaro Lynch Other [employer] Other 07-27-2021 14:00-0500 Systolic blood pressure 112 mm[Hg] Jenaro Lynch Other [employer] Other Encounters Encounter Date Encounter Type Care Provider Facility Start: 09-08-2023 End: 09-09-2023 ambulatory Yeyo ROWE Facility:[facility] Start: 09-08-2023 End: 09-08-2023 Patient encounter procedure Yeyo ROWE [facility] Start: 07-31-2023 ambulatory Shana Lowe Facility:[facility] Start: 07-12-2023 End: 07-12-2023 Emergency department patient visit Jenaro Lynch Facility:[facility] Start: 07-12-2023 End: 07-12-2023 Emergency department patient visit DO Jenaro Lynch Work Phone: [facility] Work Phone: Start: 07-07-2023 End: 07-07-2023 ambulatory Jenaro Syed Other [employer] Other Start: 07-07-2023 Telephone encounter [facility] Start: 07-03-2023 End: 07-04-2023 ambulatory Yeyo ROWE Facility:[facility] Start: 06-26-2023 End: 06-26-2023 ambulatory Jenaro Lynch Other [employer] Other Start: 06-26-2023 Telephone encounter [facility] Start: 06-02-2023 End: 06-03-2023 ambulatory Yeyo ROWE Facility:[facility] Start: 06-02-2023 End: 06-02-2023 Patient encounter procedure Yeyo ROWE [facility] Start: 05-16-2023 End: 05-16-2023 ambulatory Jenaro Lynch Other [employer] Other Start: 05-16-2023 Telephone encounter [facility] Start: 05-03-2023 End: 05-04-2023 ambulatory Yeyo ROWE Facility: [place] Start: 05-03-2023 End: 05-03-2023 Patient encounter procedure Yeyo ROWE [facility] Start: 04-28-2023 End: 04-28-2023 ambulatory Jenarogorge Lynch Other [employer] Other Start: 04-28-2023 Telephone encounter Jenarogorge Lynch [facility] Start: 04-18-2023 End: 04-19-2023 ambulatory Yeyo ROWE Facility: [place] Start: 04-18-2023 End: 04-18-2023 Patient encounter procedure Yeyo Viktoria SOLEDAD [facility] [place] Start: 04-17-2023 ambulatory Yeyo Ruizi ty:[facility] [place] Start: 04-13-2023 End: 04-14-2023 ambulatory Yeyo ROWE Facility:[id number] Start: 04-11-2023 End: 04-11-2023 ambulatory Jenarogorge Lynch Other [employer] Other Start: 04-11-2023 Telephone encounter Jenarogorge [facility] Start: 04-06-2023 End: 04-06-2023 ambulatory Jenarogorge Lynch Other [employer] Other Start: 04-06-2023 Encounter for other preprocedural examination [facility]ett[facility]oe [facility] Start: 04-06-2023 Office outpatient vi sit 25 minutes Jenaro Jettjoe [facility] Start: 03-28-2023 End: 03-28-2023 ambulatory Jenarogorge Lynch Other [employer] Other Start: 03-28-2023 Telephone encounter Jenarogorge Lynch [facility] Start: 03-20-2023 ambulatory Yeyo ROWE Facili ty:[facility] [place] Start: 03-16-2023 ambulatory Yeyo ROWE Facili ty:[id number] Start: 03-15-2023 End: 03-15-2023 ambulatory Jenaro Lynch Other [facility] [employer] Other Start: 03-15-2023 Office outpatient vi sit 25 minutes Jenaro [facility] Start: 03-10-2023 End: 03-10-2023 ambulatory Jenaro Lynch Other [facility] [employer] Other Start: 03-10-2023 Telephone encounter [facility] Start: 02-15-2023 Office outpatient vi sit 15 minutes Jenaro Lynch Work Phone: [facility] 250 DO Work Phone: Start: 02-15-2023 ambulatory Dolores Feldman Facility:1 [id number] Start: 02-14-2023 End: 02-15-2023 ambulatory Yeyo ROWE [facility] Start: 02-14-2023 End: 02-14-2023 Patient encounter procedure Yeyo ROWE [facility] Start: 02-08-2023 End: 02-09-2023 ambulatory Yeyo ROWE [facility] Start: 02-08-2023 End: 02-08-2023 Patient encounter procedure Yeyo ROWE [facility] Start: 01-30-2023 End: 01-31-2023 ambulatory Yeyo ROWE Facility:[facility] Start: 01-30-2023 End: 01-30-2023 Patient encounter procedure Yeyo ROWE [facility] Start: 01-25-[address] Jenaro Lynch Facility:[id number] Start: 01-17-2023 End: 01-17-2023 ambulatory Jenaro Lynch Other [facility] [employer] Other Start: 01-17-2023 Telephone encounter Jenaro Lynch [facility] Start: 01-11-2023 Office outpatient vi sit 25 minutes Jenaro Lynch Work Phone: [facility] 600 DO Work Phone: Start: 01-11-2023 ambulatory Dolores Feldman Facility:1 [id number] Start: 12-28-2022 End: 12-29-2022 ambulatory Yeyoneel ROWE Facility: [place] Start: 12-28-2022 End: 12-28-2022 Patient encounter procedure Yeyo R ROWE [facility] [place] Start: 12-21-2022 ambulatory Yeyo R SOLEDAD Facili ty: [place] Start: 12-01-2022 End: 12-01-2022 ambulatory Jenaro Lynch Other [facility] [employer] Other Start: 12-01-2022 Office outpatient vi sit 25 minutes Jenaro [facility] Start: 11-30-2022 ambulatory Yeyoneel ROWE Facility : [place] Start: 11-23-2022 End: 11-24-2022 ambulatory Yeyo R SOLEDAD Facility: [place] Start: 11-23-2022 End: 11-23-2022 Patient encounter procedure Yeyo R SOLEDAD [facility] [place] Start: 10-07-2022 End: 10-07-2022 ambulatory Jenaro Lynch Other [employer] Other Start: 10-07-2022 Telephone encounter Jenaro Lynch [facility] Start: 09-27-2022 End: 09-27-2022 ambulatory Jenaro Lynch - [facility] Facility:[facility] Start: 09-27-2022 End: 09-27-2022 ambulatory DO Jenaro Lynch Work Phone: [facility] Work Phone: Start: 09-27-2022 End: 09-27-2022 Patient encounter procedure DO Jenaro Lynch Work Phone: [facility] [place] Work Phone: Start: 09-21-2022 End: 09-21-2022 ambulatory Jenaro Lynch Other [employer] Other Start: 09-21-2022 Telephone encounter Jenaro Lynch [facility] Start: 09-14-2022 End: 09-14-2022 ambulatory Jenaro Lynch Other [employer] Other Start: 09-14-2022 Telephone encounter Jenaro Lynch [facility] Start: 09-02-2022 End: 09-02-2022 ambulatory Shana Mclaughlin Facility:[facility] Start: 09-02-2022 End: 09-02-2022 Patient encounter procedure DO Jenaro Lynch Work Phone: [facility] [place] Work Phone: Start: 08-25-2022 End: 08-25-2022 ambulatory Dorsi Montserratus Other [employer] Other Start: 08-25-2022 Telephone encounter Doris Marianous [facility] Start: 08-22-2022 End: 08-22-2022 ambulatory Jenaro Lynch Other [employer] Other Start: 08-22-2022 Telephone encounter Jenaro Lynch [facility] Start: 08-05-2022 End: 08-05-2022 ambulatory Jenaro Lynch Other [employer] Other Start: 08-05-2022 Telephone encounter Jenaro Lynch [facility] Start: 08-04-2022 End: 08-04-2022 ambulatory Jenaro Lynch Other [employer] Other Start: 08-04-2022 Telephone encounter Jenaro Lynch [facility] Start: 07-28-2022 End: 07-28-2022 ambulatory Jenarogorge Lynch Other [employer] Other Start: 07-28-2022 Telephone encounter Jenaro Jettjoe [facility] Start: 07-25-2022 End: 07-25-2022 ambulatory Jenaro Fraustojoe Other [employer] Other Start: 07-25-2022 Nursing evaluation o f patient and report Jenaro Syed [facility] Start: 07-19-2022 End: 07-19-2022 ambulatory Jenarogorge Lynch Other [employer] Other Start: 07-19-2022 Telephone encounter Jenarogorge Lynch [facility] Start: 07-15-2022 End: 07-15-2022 ambulatory Jenaro Lynch Other [employer] Other Start: 07-15-2022 Telephone encounter Jenaro Syed [facility] Start: 07-13-2022 End: 07-13-2022 ambulatory Jenarogorge Lynch Other [employer] Other Start: 07-13-2022 Nursing evaluation o f patient and report Jenaro Fraustojoe [facility] Start: 07-12-[address] Raulito Inman II Facility: Start: 07-05-2022 End: 07-05-2022 ambulatory Jenarogorge Lynch Other [employer] Other Start: 07-05-2022 Telephone encounter Jenaro Jettjoe [facility] Start: 07-05-2022 Rx Renewal Jenaro Fraustojoe Work Phone: [facility] 250 DO Work Phone: Start: 07-04-2022 End: 07-04-2022 ambulatory Jenaro Lynch Other [email or web address] Other Start: 07-04-2022 Office outpatient vi sit 25 minutes Jenaro Lynch [facility] [place] Start: 06-30-2022 End: 06-30-2022 ambulatory Jenaro Lynch Other [email or web address] Other Start: 06-30-2022 Telephone encounter Jenaro Lynch [facility] [place] Start: 05-25-2022 End: 05-25-2022 ambulatory Jenaro Lynch Other [email or web address] Other Start: 05-25-2022 Telephone encounter Jenaro Lynch [facility] [place] Start: 04-25-2022 End: 04-25-2022 ambulatory Jenaro Lynch Other [email or web address] Other Start: 04-25-2022 Telephone encounter Jenaro Lynch [facility] [place] Start: 04-19-2022 End: 04-19-2022 ambulatory Jenaro Lynch Other [email or web address] Other Start: 04-19-2022 Telephone encounter Jeanro Lynch [facility] [place] Start: 03-22-2022 End: 03-22-2022 ambulatory Jenaro Lynch Other [email or web address] Other Start: 03-22-2022 Telephone encounter Jenaro Lynch [facility] [place] Start: 03-01-2022 End: 03-01-2022 ambulatory Jenaro Lynch Other [email or web address] Other Start: 03-01-2022 Telephone encounter Jenaro Lynch [facility] [place] Start: 02-18-2022 End: 02-18-2022 ambulatory Jenaro Lynch Other [email or web address] Other Start: 02-18-2022 Telephone encounter Jenaro Syed [facility] [place] Start: 02-15-2022 End: 02-15-2022 ambulatory Verona Whaley Other [email or web address] Other Start: 02-15-2022 Office outpatient vi sit 25 minutes Jenaro Lynch [facility] [place] Start: 02-15-2022 Telephone encounter Verona Abhinazia [facility] Start: 01-21-2022 End: 01-21-2022 ambulatory Jenaro Lynch Other [email or web address] Other Start: 01-21-2022 Telephone encounter Jenaro Lynch [facility] [place] Start: 01-19-2022 End: 01-19-2022 ambulatory Jenaro Lynch Other [email or web address] Other Start: 01-19-2022 Telephone encounter Jenaro Syed [facility] [place] Start: 01-13-2022 End: 01-13-2022 ambulatory Jenaro Lynch Other [email or web address] Other Start: 01-13-2022 Telephone encounter Jenaro Lynch [facility] [place] Start: 12-23-2021 End: 12-23-2021 ambulatory Jenaro Lynch Other [email or web address] Other Start: 12-23-2021 Telephone encounter Jenaro Syed [facility] [place] Start: 11-24-2021 End: 11-24-2021 ambulatory Jenaro Lynch Other [email or web address] Other Start: 11-24-2021 Telephone encounter Jenaro Lynch [facility] [place] Start: 11-03-2021 Rx Renewal Jenaro Mari Syed Work Phone: [facility] 250 DO Work Phone: Start: 10-26-2021 Office outpatient vi sit 25 minutes Jenaro Fraustojoe Work Phone: [facility] 250 DO Work Phone: Start: 10-25-2021 End: 10-25-2021 ambulatory Jenaro Lynch Other [employer] Other Start: 10-25-2021 Telephone encounter Jenaro Lynch [facility] [place] Start: 10-19-2021 End: 10-19-2021 ambulatory Aziz Bakhous Other [email or web address] Other Start: 10-19-2021 Office outpatient vi sit 25 minutes Aziz Bakhous [facility] Start: 10-18-2021 End: 10-18-2021 ambulatory Aziz Bakhous Other [employer] Other Start: 10-18-2021 Telephone encounter Aziz Bakhous [facility] Start: 10-12-2021 End: 10-13-2021 ambulatory DUARTE HENRY . Facility: Start: 10-08-2021 End: 10-08-2021 ambulatory Jenaro Lynch Other [email or web address] Other Start: 10-08-2021 Telephone encounter Jenaro Lynch [facility] [place] Start: 09-22-2021 End: 09-22-2021 ambulatory Jenaro Lynch Other [email or web address] Other Start: 09-22-2021 Telephone encounter Jenaro Lynch [facility] [place] Start: 09-21-2021 End: 09-21-2021 ambulatory Jenaro Lynch Other [email or web address] Other Start: 09-21-2021 Telephone encounter Jenaro Lynch [facility] [place] Start: 08-09-2021 End: 08-09-2021 ambulatory Jenaro Lynch Other [email or web address] Other Start: 08-09-2021 Telephone encounter Jenaro Lynch [facility] Start: 08-02-2021 End: 08-02-2021 ambulatory Jenaro Lynch Other [email or web address] Other Start: 08-02-2021 Telephone encounter Jenaro Lynch [facility] Start: 07-27-2021 End: 07-27-2021 ambulatory Jenaro Lynch Other [email or web address] Other Start: 07-27-2021 Office outpatient vi sit 25 minutes Jenaro Lynch [facility] Start: 06-23-2021 End: 06-23-2021 ambulatory Jenaro Lynch Other [email or web address] Other Start: 06-23-2021 Telephone encounter Jenaro Lynch [facility] Start: 06-22-2021 Rx Renewal Jenaro Lynch Work Phone: [facility] 250 DO Work Phone: Start: 05-03-2021 End: 05-03-2021 ambulatory Jenaro Lynch Other [email or web address] Other Start: 05-03-2021 Telephone encounter Jenaro [facility] Procedures Date Procedure Procedure Detail Performing Clinician Start: 07-12-2023 Plain chest X-ray DO Livia Lynch Work Phone: Start: 04-13-2023 Transurethral prostatectomy Yeyo ROWE Start: 02-14-2023 Transurethral cystoscopy Yeyo ROWE Start: 09-02-2022 MRI of head DO Jenaro Russell jose guadalupe Work Phone: Start: 06-05-2006 Total colonoscopy Jenarogorge Lynch Work Phone: Appendectomy Jenaro Mari Lynch Work Phone: Appendectomy Yeyo ROWE Bilateral Carpal Timothy uli Surgery Yeyo ROWE Bilateral Eye Surgery 1 Patr genaro ROWE Comment on above: bilateral cataracts with iol implants Cardiac catheterization Jose Angel Lynch Work Phone: cardiac stents Yeyo Diaz Cataract extraction and insertion of intraocular lens Yeyo ROWE Cataract surgery Jenaro diaz Work Phone: Colonoscopy Yeyo ROWE Decompression of med byron nerve Jenaro Lynch Work Phone: History of percutane ous transluminal coronary angioplasty History of PTCA Jenaro Lynch Work Phone: Procedure on back Jenaro ramirez Work Phone: Comment on above: nerve ablation; Procedure on back Yeyo MIRTA DOSHI Scrotum and testicle operation Jenaro Lynch Work Phone: Plan of Treatment Date Care Activity Detail Author Start: 11-15-2023 FUV, Provider: Raulito Inman, Status: Pen, Time: 2:40 PM FUV, Provider: Raulito Inman, Status: Pen, Time: 2:40 PM -[facility] 250 DO Work Phone: Start: 07-12-2023 Duplex scan of lower limb veins US venous duplex LE BI [facility] Start: 07-12-2023 US Lower extremity v ein - bilateral [facility] Start: 07-12-2023 Duplex scan veins of upper limb US venous duplex UE LT [facility] Start: 07-12-2023 US Upper extremity v ein - left [facility] Start: 02-15-2023 FUV, Provider: Dolores Velazquez, Status: Pen, Time: 10:00 AM FUV, Provider: Dolores Velazquez, Status: Pen, Time: 10:00 AM [facility] Work Phone: Start: 01-25-2023 STRESS NUC, Provider : CHARISSE [facility]VI NUCLEAR 01,[id number], Status: Pen, Time: 8:30 AM STRESS NUC, Provider: CHARISSE [facility]VI NUCLEAR 01,[id number], Status: Pen, Time: 8:30 AM -[facility] 600 DO Work Phone: Start: 07-12-2022 FUV, Provider: Raulito Inman, Status: Pen, Time: 9:20 AM FUV, Provider: Raulito Inman, Status: Pen, Time: 9:20 AM [facility] 250 DO Work Phone: Start: 10-26-2021 FUV, Provider: Raulito Inman, Status: Pen, Time: 9:30 AM FUV, Provider: Raulito Inman, Status: Pen, Time: 9:30 AM [facility] 250 DO Work Phone: Patient Education Dependent Edema (DC) [facility] Work Phone: Patient referral [facility] Work Phone: Immunizations Immunization Date Immunization Notes Care Provider Fa wilver 11-13-2020 Pfizer-BioNTech COVID-19 Vacc 30 MCG/0.3ML Intramuscular Suspension Jenaro Lynch Work Phone: [facility] 10-23-2020 Pfizer-BioNTech COVID-19 Vacc 30 MCG/0.3ML Intramuscular Suspension Jenaro Lynch Work Phone: [facility] 01-14-2019 influenza, seasonal, injectable Jenaro Lynch Other [facility] [employer] Other 01-14-2019 influenza virus vaccine, unspecified formulation Yeyo ROWE [facility] 04-02-2018 influenza virus vaccine, unspecified formulation Yeyoneel ROWE [facility] 04-02-2018 influenza, injectabl e, quadrivalent, preservative free DO Jenaro Lynch Work Phone: [facility] 03-05-2018 influenza virus vaccine, unspecified formulation Jenaro Lynch Work Phone: [facility] 250 DO Work Phone: 03-05-2018 pneumococcal polysaccharide vaccine, 23 valent Jenaro Lynch Work Phone: [facility] 250 DO Work Phone: 03-07-2016 influenza virus vaccine, unspecified formulation Yeyoneel ROWE [facility] 03-07-2016 influenza, injectabl e, quadrivalent, preservative free Jenaro Lynch Work Phone: [facility] 600 DO Work Phone: 02-22-2016 pneumococcal polysaccharide vaccine, 23 valent Jenaro P Jetts Work Phone: [facility] Payers Date Payer Category Payer Self-pay [id number] 2022 Medicaid [id number] 1965 Unknown [id number] 2.16.84 0.1.227275.3.579.2.593 1965 Unknown [id number] 2.16.8 40.1.128956.3.579.2.1068 1965 Unknown [id number] 2.16. 840.1.404557.3.579.2.356 1965 Unknown [id number] 2.16. 840.1.599408.3.579.2.356 1965 Unknown [id number] 2.16. 840.1.904404.3.579.2.356 1965 Unknown [id number] 2.16.8 40.1.989475.3.579.2.727 1965 Unknown [id number] 2.16.8 40.1.521950.3.579.2.727 1965 Unknown [id number] 2.16.8 40.1.303835.3.579.2.727 1965 Unknown [id number] 2.16.8 40.1.780337.3.579.2.727 1965 Unknown [id number] 2.16.8 40.1.423622.3.579.2.727 1965 Unknown [id number] 2.16.8 40.1.861590.3.579.2.727 1965 Unknown [id number] 2.16.8 40.1.246215.3.579.2.727 1965 Unknown [id number] 2.16.8 40.1.874574.3.579.2.727 1965 Unknown [id number] 2.16.8 40.1.738431.3.579.2.727 1965 Unknown [id number] 2.16.8 40.1.248218.3.579.2.727 1965 Unknown [id number] 2.16.8 40.1.667088.3.579.2.727 1965 Unknown [id number] 2.16.8 40.1.792911.3.579.2.727 1965 Unknown [id number] 2.16.8 40.1.318946.3.579.2.727 1965 Unknown [id number] 2.16.8 40.1.805017.3.579.2.727 1965 Unknown [id number] 2.16.8 40.1.311933.3.579.2.727 1959 Unknown [id number] 2.1 6.840.1.413953.19 Unknown [employer] Unknown [id number] 2.16.8 40.1.951297.3.579.2.531 Unknown [id number] 2.16.8 40.1.836574.3.579.2.531 Unknown [id number] 2.16.8 40.1.871835.3.579.2.531 Unknown [id number] 2.16.8 40.1.259816.3.579.2.531 Social History Date Type Detail Facility Caffeine use Caffeine use [employer] Other Comment on above: 2 cups coffee, 4-6 c ups tea daily, occaional soda; qauit 07/2020; Sex Assigned At [facility] Start: 07-14-2020 End: 07-12-2023 Tobacco smoking status NHIS Smoker (finding) [facility] Start: 1965 Sex Assigned At Male F [facility] Start: 11-23-2022 End: 06-02-2023 Tobacco smoking status Heavy tobacco smoker (finding) [facility] Tobacco smoking status Never [facility] Medical Equipment Procedure Code Equipment Code Equipment Origin al Text Equipment Identifier Dates Aortogram, abdominal, with bilateral lower extremity runoff IR STENT SMART 10 X 80 120 CM FDA Start: 09-27-2018 Aortogram, abdominal, with bilateral lower extremity runoff IR STENT SMART 10 X 80 120 CM FDA Start: 09-27-2018 Start: 12-16-2013 Bare-metal bilia ry stentMultiple peripheral artery stent, bare-metal [id number] FDA Start: 07-14-2020 Functional Status Date Assessment Result Facility 06-02-2023 Functional Status N/A [facility] 02-14-2023 Functional Status N/A [facility] 01-30-2023 Functional Status N/A [facility] 11-23-2022 Functional Status N/A [facility] Clinical Notes 06-23-2021 to 07-13-2023 Note Date & Type Note Facility 07-13-2023 Hospital Discharg e instructions Follow Up Care 07/13/2023 12:04:02 With:SOLEDAD HERRERA, Yeyo Blum, URL Address: [address] [place], [place] [id number]- When: Unknown [facility] 06-26-2023 Evaluation note Encounter Date Diagnosis Assessment Notes Jun, Hyperlipidemia (ICD-10 - E78.5) [employer] Other [id number] Hospital Discharge instructions Patient Education 06/02/2023 11:57:43 [...] urethra. Follow these instructions at home: Take aabl-hch-mbczuzl and prescription medicines only as told by [...] provider. Document Revised: 12/08/2021 Document Reviewed: 12/08/2021 [employer] Patient Education 2022 [employer]pany. [facility] 06/01/2023 14:05:36 With:SOLEDAD HERRERA, Yeyo Blum, URL Address: [address] [place] [address]- When: Unknown [facility] 12-12-2023 Evaluation note* Encounter Date Diagnosis Assessment Notes Treatment Notes Treatment Clinical Notes May, 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) [employer] Other 11-24-2023 Evaluation note* Encounter Date Diagnosis Assessment Notes Treatment Notes Treatment Clinical Notes Apr, Diabetic nephropathy (ICD-10 - E11.21) [employer] Other 11-07-2023 Evaluation note* Encounter Date Diagnosis Assessment Notes Treatment Notes Treatment Clinical Notes Apr, Left arm pain (ICD-10 - M79.602) [employer] Other 11-02-2023 Evaluation note* Encounter Date Diagnosis [...] and to have his surgery as scheduled. [employer] Other 10-24-2023 Evaluation note* Encounter Date Diagnosis Assessment Notes Treatment Notes Treatment Clinical Notes Mar, 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) Mar, 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) [employer] Other 10-11-2023 Evaluation note* Encounter Date Diagnosis [...] No records available as of yet from [facility]. He was found to have developed the [...] to continue to montior this at home. [employer] Other 10-09-2023 Note [id number] [facility] 02-14-2023 [id number]:127[facility]09-12-2023 Note [id number]:127[facility] 02-14-2023 Hospital Discharge instructions Patient Education 02/14/2023 [...] including vitamins, herbs, eye drops, creams, and fntd-yzf-efwlddp medicines. Any problems you or family members [...] provider tells you to take them. Taking dojw-fnn-vriledk medicines, vitamins, herbs, and supplements. Surgery safety [...] provider. Document Revised: 02/15/2022 Document Reviewed: 02/15/2022 [email or web address] Patient Education 2022 [employer]pany. [facility]08-28-2023 Hospital Discharge instructions Patient Education 01/30/2023 [...] including vitamins, herbs, eye drops, creams, and pcan-hbg-dgldnpt medicines. ?Whether you are or may be [...] provider. Document Revised: 02/02/2022 Document Reviewed: 12/25/2020 [employer] Patient Education 2022 [employer]. 01/30/2023 11:22:30 Cystoscopy Cystoscopy Cystoscopy is a [...] including vitamins, herbs, eye drops, creams, and kxij-dtr-bfrusbj medicines. Any problems you or family members [...] provider tells you to take them. Taking qwit-ack-swquezn medicines, vitamins, herbs, and supplements. Tests You [...] Follow these instructions at home: Medicines Take wwtp-uxy-nrztnal and prescription medicines only as told by [...] provider. Document Revised: 02/02/2022 Document Reviewed: 01/01/2021 [employer] Patient Education 2022 kompany. Follow Up Care 11/23/2022 13:02:56 With:SOLEDAD HERRERA, Yeyo Blum, URL Address: [facility] [address] , [place] [phone] When: Unknown Comments:sched cysto/uros [facility] 08-15-2023 Evaluation note* Encounter Date Diagnosis Assessment Notes Treatment Notes Treatment Clinical Notes Jan, Diabetic nephropathy (ICD-10 - E11.21) [employer] Other 06-29-2023 Evaluation note* Encounter Date Diagnosis [...] reviewed. 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 [employer] Other 06-21-2023 Hospital Discharge instructions Patient Education [...] provider. Document Revised: 08/11/2021 Document Reviewed: 05/07/2021 [employer] Patient Education 2021 kompany. Follow Up Care 09/14/2022 14:23:26 With:SOLEDAD HERRERA, Yeyo Blum, URL Address: [facility] [address], [place] [address]- When: Unknown [facility] [place] 05-05-2023 Evaluation note* Encounter Date Diagnosis Assessment Notes Treatment Notes Treatment Clinical Notes October, Erectile dysfunction, unspecified erectile dysfunction type (ICD-10 - N52.9) [employer] Other 04-19-2023 Evaluation note* Encounter Date Diagnosis Assessment Notes Treatment Notes Treatment Clinical Notes Sep, 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) [employer] Other 04-12-2023 Evaluation note* Encounter Date Diagnosis Assessment Notes Treatment Notes Treatment Clinical Notes Sep, 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) Sep, 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) [employer] Other 03-20-2023 Evaluation note* Encounter Date Diagnosis Assessment Notes Treatment Notes Treatment Clinical Notes Aug, Diabetic nephropathy (ICD-10 - E11.21) [employer] Other 03-03-2023 Evaluation note* Encounter Date Diagnosis Assessment Notes Treatment Notes Treatment Clinical Notes Aug, Pain in right leg (ICD-10 - M79.604) [employer] Other 03-02-2023 Evaluation note* Encounter Date Diagnosis Assessment Notes Treatment Notes Treatment Clinical Notes Aug, Pain in right leg (ICD-10 - M79.604) [employer] Other 02-20-2023 Evaluation note* Encounter Date Diagnosis Assessment Notes Treatment Notes Treatment Clinical Notes Jul, Intractable episodic headache, unspecified headache type (ICD-10 - R51.9) [employer] Other 02-14-2023 Evaluation note* Encounter Date Diagnosis Assessment Notes Treatment Notes Treatment Clinical Notes Jul, Acute intractable headache, unspecified headache type (ICD-10 - R51.9) [employer] Other 02-08-2023 Evaluation note* Encounter Date Diagnosis Assessment Notes Treatment Notes Treatment Clinical Notes Jul, Headache (ICD-10 - R51.9) [employer] Other 01-30-2023 Evaluation note* Encounter Date Diagnosis [...] medication and we will continue to monitor. [employer] Other 12-21-2022 Evaluation note* Encounter Date Diagnosis Assessment Notes Treatment Notes Treatment Clinical Notes May, Diabetic nephropathy (ICD-10 - E11.21) [employer] Other 11-21-2022 Evaluation note* Encounter Date Diagnosis Assessment Notes Treatment Notes Treatment Clinical Notes Apr, Diabetic nephropathy (ICD-10 - E11.21) [employer] Other 11-15-2022 Evaluation note* Encounter Date Diagnosis Assessment Notes Treatment Notes Treatment Clinical Notes Apr, Pain in right leg (ICD-10 - M79.604) [employer] Other 10-18-2022 Evaluation note* Encounter Date Diagnosis Assessment Notes Treatment Notes Treatment Clinical Notes Mar, Diabetic nephropathy (ICD-10 - E11.21) [employer] Other 09-13-2022 Evaluation note* Encounter Date Diagnosis Assessment Notes Treatment Notes Treatment Clinical Notes Feb, Hypertensive chronic kidney disease with stage 1 through stage 4 chronic kidney disease, or unspecified chronic kidney disease (ICD-10 - I12.9) [employer] Other 09-13-2022 Evaluation note* Encounter Date Diagnosis [...] scheduled. Feb, Atherosclerotic hear t disease of [place] coronary artery without angina pectoris (ICD-10 - [...] is to continue to follow with the trim installer as scheduled. Feb, Pain in right leg [...] Noted upon review of blood work results. [employer] Other 08-19-2022 Evaluation note* Encounter Date Diagnosis Assessment Notes Treatment Notes Treatment Clinical Notes Jan, Diabetic nephropathy (ICD-10 - E11.21) [employer] Other 08-17-2022 Evaluation note* Encounter Date Diagnosis Assessment Notes Treatment Notes Treatment Clinical Notes Jan, Diabetic nephropathy (ICD-10 - E11.21) [employer] Other 07-21-2022 Evaluation note* Encounter Date Diagnosis Assessment Notes Treatment Notes Treatment Clinical Notes Dec, Diabetic nephropathy (ICD-10 - E11.21) [employer] Other 06-22-2022 Evaluation note* Encounter Date Diagnosis Assessment Notes Treatment Notes Treatment Clinical Notes Nov, Diabetic nephropathy (ICD-10 - E11.21) [employer] Other 05-23-2022 Evaluation note* Encounter Date Diagnosis Assessment Notes Treatment Notes Treatment Clinical Notes October, Diabetic nephropathy (ICD-10 - E11.21) [employer] Other 05-17-2022 Evaluation note* Encounter Date Diagnosis [...] E11.59) October, 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 Inman. For this October, Other He did quit smoking since July 2020 [employer] Other 05-16-2022 Evaluation note* Encounter Date Diagnosis Assessment Notes Treatment Notes Treatment Clinical Notes October, Hypertensive chronic kidney disease with stage 1 through stage 4 chronic kidney disease, or unspecified chronic kidney disease (ICD-10 - I12.9) October, Stage 3 chronic kidney disease, unspecified whether stage 3a or 3b CKD (ICD-10 - N18.30) [employer] Other 05-06-2022 Evaluation note* Encounter Date Diagnosis Assessment Notes Treatment Notes Treatment Clinical Notes October, Pain in right leg (ICD-10 - M79.604) October, Pain in left leg (ICD-10 - M79.605) [employer] Other 04-20-2022 Evaluation note* Encounter Date Diagnosis Assessment Notes Treatment Notes Treatment Clinical Notes Sep, Diabetic nephropathy (ICD-10 - E11.21) [employer] Other 04-19-2022 Evaluation note* Encounter Date Diagnosis Assessment Notes Treatment Notes Treatment Clinical Notes Sep, Anxiety (ICD-10 - F41.9) Sep, Hypertensive chronic kidney disease with stage 1 through stage 4 chronic kidney disease, or unspecified chronic kidney disease (ICD-10 - I12.9) [employer] Other 03-07-2022 Evaluation note* Encounter Date Diagnosis Assessment Notes Treatment Notes Treatment Clinical Notes Aug, Anxiety (ICD-10 - F41.9) [employer] Other 02-22-2022 Evaluation note* Encounter Date Diagnosis [...] 12 pound weight loss from last visit. [employer] Other 01-19-2022 Evaluation note* Encounter Date Diagnosis Assessment Notes Treatment Notes Treatment Clinical Notes Jun, Diabetic nephropathy (ICD-10 - E11.21) [employer] Other Evaluation + Plan note Future Appointments Appointment Date:12/21/2022 11:00:00 AM Scheduled Provider: Location:[facility] [place] Appointment Type:URO Nurse Visit Appointment Date:01/30/2023 10:30:00 AM Scheduled Provider:Yeyo ROWE MD Location:[facility] [place] Appointment Type:URO Office Visit [facility] Evaluation + Plan note Future Appointments Appointment Date:01/30/2023 10:15:00 AM Scheduled Provider:[facility] Office Visit [facility] Evaluation + Plan note Future Appointments Appointment Date:02/01/2023 10:00:00 AM Scheduled Provider: Location:[facility] Appointment Type:Urology CALL PAT FT Appointment Date:02/08/2023 09:00:00 AM Scheduled Provider: Location:[facility] Appointment Type:Urology FT Appointment Date:02/14/2023 09:15:00 AM Scheduled Provider: Location:[facility] Appointment Type:Urology FT [facility] evaluation + Plan note Future Appointments Appointment Date:02/14/2023 09:15:00 AM Scheduled Provider: Location:[facility] Urology Surgical Services App[facility] Future Appointments Appointment Date:03/20/2023 08:45:00 AM Scheduled Provider: Location:[facility] Aurelio Appointment Type:URO Nurse Visit Appointment Date:04/05/2023 08:00:00 AM Scheduled Provider:Yeyo ROWE MD [place] [place] App[facility]ment Type[facility] Future Appointments Appointment Date:05/03/2023 08:45:00 AM Scheduled Provider:Yeyo ROWE MD Location:[facility] Appointment Type:URO Office Visit [facility] Evaluation + Plan note Future Appointments Appointment Date:07/03/2023 10:15:00 AM Scheduled Provider:Yeyo ROWE MD Location:[facility] Appointment Type:URO Office Visit [facility] evaluation noteNo InformationNort [employer] Other Evaluation noteNo assessment information available [facility] Work Phone: Hisbcpu general Narrative - Reported* Type Description Date [...] Heart stent placed by Dr. Bowie at [facility] 07/26/15 Surgical History Left knee arthroscopy 11/2015 Surgical History carpal tunnel release, right an d left 08/2016 Surgical History hydrocele repair 08/2016 Surgical History cardiac [place] [facility] [place]18 Surgical History Lt LE iliac DSA, angioplasty & stenting 09/27/2018 Surgical History Left Angiogram with one stent - Dr. Boss 07/2020 Hospitalization History Deep Depression, Anxiety; [facility] 11-11-10 Hospitalization History [facility] [place]emia and hyper capnic respirtory failure 11/11/16 Hospitalization History chest pain [facility] [place]18 [employer] Other History of Present illness NarrativeReturns in [...] impact [facility] blood [facility] Work Phone: History of [...] regimen. He denies medication side effects. [facility] 600 DO Work Phone: History [...] medication regimen. He denies medication side effects. [facility] 250 DO Work Phone: Hospital course Narrative No data available for this section [facility] Hospital Discharge instructions No data available for this section [facility] Progress note No data available for this section [facility] Charisse Chief Complaint SOLOMON FELDMAN is being seen [...] or need for medication changes. Family History Unknown Family Member Name Dates Details Bypass [...] adache, unspecified headache type (R51.9) [facility] [employer] [facility] Referring Provider First Name Jenaro Referring Provider Last Name Syed Referring Provider Specialty Family Prac dale Referred Organization [facility] Referred Provider Lyssa Sharpe Referred Address [address] [facility] [facility], [place],[address] Referred Provider Specialty Neurology Referral Priority Routine [...] 07/28/2022 10:23:53 AM >Spoke with Marilynn at [facility] and patient has been scheduled and cancelled the appt for 07/26/22 Verona Burton 07/28/2022 10:27:39 AM >Telephone encounter was sent Reason 03/31/22 @ 2:45pm consult and treat Diagnosis 1 Type 2 diabetes bobby itus with circulatory disorder (E11.59) Referral Organization [facility] [place] Referring Provider First Name Jenaro Referring Provider Last Name Syed Referring Provider Specialty Family Prac dale Referred Organization [facility] Referred Provider Doris Barnes Referred Address [address],[place], [place],[address] Referred Provider Specialty Nurse Jono calderon Referral Priority Routine Referral Appointment Date 2022-03-31 General Notes Verona Burton 022 02:28:10 PM >Received today and sent P2P Verona Burton 02/16/2022 07:50:21 AM >Patient has been scheduled Chief Complaint and Reason for Visit Chief Complaint r51.9 E11.59 E78.5 M10.9 Chief Complaint Bilat feet swollen, L arm swollen/tight Advance Directives Advance Directive Response Recorded Date/ Time Advance Directives No June 09, 2017 5:49pm Advance Directive Response Recorded Date/ Time Advance Directives No June 09, 2017 4:49pm Summary Purpose Additional Source Comments REASON FOR VISIT (unrecogniz ed section and content) RefillsRefillsRefilllower ja w swelling- spouse had appt and wanted this at the same time, * Needs T4YqbivlzMnqcwcmkXWN to sendRefills-bpk to send rxrefil - bpk to send rxLAB ORDERSRENAL 6 month Follow uprefillrefillclinicalRefills-bpk to send rxlyrica rx printedDM ReferralClinicaldiscuss PSA resultsclinicalClinicalRefills-bpk to send rxrefillrefill- BPK to send rxRefills-bpk to send rxClinicalheadachesClinicaltoradol shottoradol shotclinicaltoradol per bpkNeurology Referral UpdateRefills-bpk to send rxrefillRefillDM Referral UpdaterefillRefillsRefillsTKM CancelledMED CHECKbpk to send wfmstmbqycy7z check/hospital f/u-bellevueRefillsR/S surgical clearanceclinicalrefillrefillrefillClinical Care Teams (unrecognized sec tion and content) Personnel Name: JENARO LYNCH DO Address: Address: [address] [place] [address] Team Status: Active Member Role Status Dates Jenaro Lynch DO Primary Care Provider Active Team Status: Inactive Member Role Status Dates Jenaro Lynch DO Primary Care Provider Active Shana Mclaughlin PA-C Attending Provider Active Team Status: Inactive Member Role Status Dates Jenaro Lynch DO Primary Care Provider Active Jenaro Lynch DO [facility] Attending Provider Active Team Status: Inactive Member [...] DATE CREATED AUTHOR AUTHOR'S ORGANIZ ATION [facility] DATE CREATED AUTHOR AUTHOR'S ORGANIZ ATION 02/16/2023 [facility] DATE CREATED AUTHOR AUTHOR'S ORGANIZ ATION 02/16/2023 [employer] DATE CREATED AUTHOR AUTHOR'S ORGANIZ ATION 08/08/2023 [facility] DATE CREATED AUTHOR AUTHOR'S ORGANIZ ATION 09/08/2023 [facility] FOR RECORDS PERTAINING TO PATIENTS WHO [...] BE BASED ON THE PRIMARY CLINICAL RECORDS. [facility] [employer] provides no warranty or guarantee of the accuracy or completeness of information in this document.
== END 2023-09-12 13:27 | disposition home or self-care (01) ==
LOC: WC 13:27
PROVIDERS: PCP Family Medicine; Visit Provider Podiatrist Foot & Ankle Surgery
DX: E11.621 Type 2 diabetes mellitus with foot ulcer (principal); L97.415 Non-pressure chronic ulcer of right heel and midfoot with muscle involvement without evidence of necrosis
CPT/HCPCS: 11043

== ENCOUNTER 2023-09-15 11:49 | Outpatient (OUT) | payer OTHER, SELFPAY | END 2023-09-15 11:50 | disposition home or self-care (01) | LOC: WC 11:49 | PROVIDERS: PCP Family Medicine; Visit Provider Podiatrist Foot & Ankle Surgery | DX: E11.621 Type 2 diabetes mellitus with foot ulcer (principal); L97.415 Non-pressure chronic ulcer of right heel and midfoot with muscle involvement without evidence of necrosis | CPT/HCPCS: G0463 ==

== ENCOUNTER 2023-09-18 07:55 | Outpatient (OUT) | payer OTHER, SELFPAY ==
--- NOTE | 2023-09-18 08:06 | ECG_ITS ---
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
--- NOTE | 2023-09-18 08:53 | P.GSHP_ITS ---
History of Present Illness History of Present Illness Chief complaint: non pressure chronic ulcer right foot Narrative: Patient presents for preadmission testing. Please see HPI from Dr. Elias dated 09/12/2023. Review of Systems ROS Narrative Please see ROS from Dr. Elias dated 09/12/2023. [facility] Medical History (Updated 09/18/23 @ 08:32 by Shana George NP) Abscess of right foot ?L02.611 - Cutaneous abscess of right foot (ICD-10) Chronic ulcer of right foot ?L97.519 - Non-pressure chronic ulcer of other part of right foot with unspecified severity (ICD-10) Anticoagulated ?Z79.01 - emt intermediate (current) use of anticoagulants (ICD-10) Diabetic infection of right foot ?E11.628 - Type 2 diabetes mellitus with other skin complications (ICD-10) ?L08.9 - Local infection of the skin and subcutaneous tissue, unspecified (ICD-10) Puncture wound of right foot ?S91.331A - Puncture wound without foreign body, right foot, initial encounter (ICD-10) Cellulitis of foot, right ?L03.115 - Cellulitis of right lower limb (ICD-10) ROEL (acute kidney injury) ?N17.9 - Acute kidney failure, unspecified (ICD-10) Sepsis ?A41.9 - Sepsis, unspecified organism (ICD-10) CHF (congestive heart failure) ?I50.9 - Heart failure, unspecified (ICD-10) Migraine headache ?G43.909 - Migraine, unspecified, not intractable, without status migrainosus (ICD-10) Tobacco abuse ?Z72.0 - Tobacco use (ICD-10) DM2 (diabetes mellitus, type 2) ?E11.9 - Type 2 diabetes mellitus without complications (ICD-10) Carpal tunnel syndrome ?G56.00 - Carpal tunnel syndrome, unspecified upper limb (ICD-10) Back pain ?M54.9 - Dorsalgia, unspecified (ICD-10) Arthritis ?M19.90 - Unspecified osteoarthritis, unspecified site (ICD-10) Restless leg ?G25.81 - Restless legs syndrome (ICD-10) GERD (gastroesophageal reflux disease) ?K21.9 - Gastro-esophageal reflux disease without esophagitis (ICD-10) High cholesterol ?E78.00 - Pure hypercholesterolemia, unspecified (ICD-10) Myocardial infarction ?I21.9 - Acute myocardial infarction, unspecified (ICD-10) Coronary artery disease ?I25.10 - Atherosclerotic heart disease of [place] coronary artery without angina pectoris (ICD-10) BPH with obstruction/lower urinary tract symptoms ?N40.1 - Benign prostatic hyperplasia with lower urinary tract symptoms (ICD- 10) ?N13.8 - Other obstructive and reflux uropathy (ICD-10) Dementia ?F03.90 - Unspecified dementia, unspecified severity, without behavioral disturbance, psychotic disturbance, mood disturbance, and anxiety (ICD-10) CKD stage 4 due to type 2 diabetes mellitus ?E11.22 - Type 2 diabetes mellitus with diabetic chronic kidney disease (ICD- 10) ?N18.4 - Chronic kidney disease, stage 4 (severe) (ICD-10) Hyperlipidemia ?E78.5 - Hyperlipidemia, unspecified (ICD-10) Polyp of prostate with urinary obstruction ?N40.1 - Benign prostatic hyperplasia with lower urinary tract symptoms (ICD- 10) ?N13.8 - Other obstructive and reflux uropathy (ICD-10) Femoral artery stenosis ?I70.209 - Unspecified atherosclerosis of [place] arteries of extremities, unspecified extremity (ICD-10) Glaucoma ?H40.9 - Unspecified glaucoma (ICD-10) Carpal tunnel syndrome, bilateral ?G56.03 - Carpal tunnel syndrome, bilateral upper limbs (ICD-10) Gout ?M10.9 - Gout, unspecified (ICD-10) COPD (chronic obstructive pulmonary disease) ?J44.9 - Chronic obstructive pulmonary disease, unspecified (ICD-10) Neuropathy ?G62.9 - Polyneuropathy, unspecified (ICD-10) Chronic kidney disease ?N18.9 - Chronic kidney disease, unspecified (ICD-10) Hypertension ?I10 - Essential (primary) hypertension (ICD-10) Weakness ?R53.1 - Weakness (ICD-10) Surgical History (Updated 09/15/23 @ 10:12 by Shana George NP) H/O foot surgery (08/10/23) ?Z98.890 - Other specified postprocedural states (ICD-10) S/P TURP (04/13/23) ?Z90.79 - Acquired absence of other genital organ(s) (ICD-10) H/O foot surgery (08/05/23) ?Z98.890 - Other specified postprocedural states (ICD-10) History of heart artery stent ?Z95.5 - Presence of coronary angioplasty implant and graft (ICD-10) History of spinal surgery ?Z98.890 - Other specified postprocedural states (ICD-10) History of colonoscopy ?Z98.890 - Other specified postprocedural states (ICD-10) History of carpal tunnel release ?Z98.890 - Other specified postprocedural states (ICD-10) History of cataract extraction ?Z98.49 - Cataract extraction status, unspecified eye (ICD-10) History of appendectomy ?Z90.49 - Acquired absence of other specified parts of digestive tract (ICD- 10) History of heart artery stent ?Z95.5 - Presence of coronary angioplasty implant and graft (ICD-10) Family History (Updated 03/03/23 @ 18:46 by Darling Sharma RN) Mother Family history of CHF (congestive heart failure) Family history of diabetes mellitus Family history of hypertension Grandfather Family history of CHF (congestive heart failure) Family history of diabetes mellitus Family history of hypertension Family history of myocardial infarction Grandmother Family history of hypertension Social History (Updated 08/10/23 @ 09:23 by Mariely Fox) Within the past year, how often did you have a drink containing alcohol: never Score interpretation: A score less than 4 is consistent with normal alcohol consumption. Smoking status: Current every day smoker What tobacco products do you use: cigarettes Cigarettes per day: 20 Years smoked: 42 Smoking pack-years: 42.00 Non-prescribed substance use: denies use Previous occupational history: DISABLED Highest level of school completed/degree received: high school graduate Gender Identity: male Meds Home Medications and Allergies Home Medications ?Medication ?Instructions ?Recorded ?Confirmed ?Type aspirin 81 mg tablet,delayed 81 mg PO DAILY 03/03/23 09/18/23 History release atorvastatin 80 mg tablet 80 mg PO DAILY 03/03/23 09/18/23 History clopidogrel 75 mg tablet 75 mg PO DAILY 03/03/23 09/18/23 History empagliflozin 10 mg tablet 10 mg PO DAILY 03/03/23 09/18/23 History (Jardiance) glimepiride 2 mg tablet 2 mg PO BID 03/03/23 09/18/23 History metformin 1,000 mg tablet 1,000 mg PO BID 03/03/23 09/18/23 History metoprolol tartrate 100 mg tablet 50 mg PO Q12H 03/03/23 09/18/23 History nitroglycerin 0.4 mg sublingual 0.4 mg sublingual Q5M PRN chest 03/03/23 09/18/23 History tablet pain omeprazole 40 mg capsule,delayed 40 mg PO DAILY 03/03/23 09/18/23 History release pregabalin 200 mg capsule 200 mg PO TID 03/03/23 09/18/23 History sitagliptin phosphate 100 mg 100 mg PO DAILY 03/03/23 09/18/23 History tablet (Januvia) tamsulosin 0.4 mg capsule (Flomax) 0.4 mg PO BID 03/03/23 09/18/23 History valsartan 160 1 tab PO DAILY 03/03/23 09/18/23 History mg-hydrochlorothiazide 12.5 mg tablet amitriptyline 100 mg tablet 100 mg PO BEDTIME 03/04/23 09/18/23 History albuterol sulfate 90 mcg/actuation 2 inh inhalation Q4H PRN shortness 03/30/23 09/18/23 History aerosol inhaler (ProAir HFA) of breath or wheezing dulaglutide 1.5 mg/0.5 mL 1.5 mg subcut QWEEK 08/03/23 09/18/23 History subcutaneous pen injector (Trulicity) fremanezumab-vfrm 225 mg/1.5 mL 225 mg subcut .QMonth 08/03/23 09/18/23 History subcutaneous auto-injector (Ajovy) furosemide 40 mg tablet 40 mg PO DAILY 08/03/23 08/10/23 History isosorbide mononitrate 30 mg 30 mg PO DAILY 08/03/23 09/18/23 History tablet,extended release 24 hr rimegepant 75 mg disintegrating 75 mg PO DAILY 08/03/23 09/18/23 History tablet (Nurtec ODT) doxycycline monohydrate 100 mg 100 mg PO BID 14 days #28 caps 08/07/23 09/18/23 Rx capsule tramadol 50 mg tablet 50 mg PO Q6H PRN pain #28 tabs 08/07/23 09/18/23 Rx hydrocodone 5 mg-acetaminophen 325 1 tab PO Q6H PRN pain 7 days #28 08/18/23 Rx mg tablet tabs hydrocodone 5 mg-acetaminophen 325 1 tab PO Q8H PRN pain 7 days #21 08/29/23 Rx mg tablet tabs budesonide-formoterol HFA 160 2 inh inhalation Q12H 09/18/23 09/18/23 History mcg-4.5 mcg/actuation aerosol inhaler (Symbicort) ropinirole 1 mg tablet 1 mg PO TID 09/18/23 09/18/23 History sildenafil 100 mg tablet 100 mg PO Q24H PRN sexual activity 09/18/23 09/18/23 History tiotropium bromide 2.5 2 inh inhalation Q24H 09/18/23 09/18/23 History mcg/actuation mist for inhalation (Spiriva Respimat) tizanidine 4 mg tablet 4 mg PO DAILY 09/18/23 09/18/23 History Allergies Allergy/AdvReac Type Severity Reaction Status Date / Time Penicillins Allergy Severe Swelling Verified 09/18/23 08:25 of Lip/Tongue/Throat bee venom protein (honey bee) Allergy Swelling Verified 09/18/23 08:25 of Lip/Tongue/Throat latex Allergy Rash Verified 09/18/23 08:25 Exam Narrative Exam Narrative: Constitutional: Awake, alert, comfortable, well-appearing, nontoxic, interactive, vital signs as charted Head: Normocephalic, atraumatic Neck: Supple, normal appearance, normal range of motion, no meningeal signs, no lymphadenopathy Respiratory: No respiratory distress, Rhonchi bilateral bases, no wheezing, no tachypnea Cardiovascular: Regular rate and rhythm, strong and regular heart tones Psychiatric: Oriented ?3, normal affect Assessment and Plan Assessment and Plan (1) Abscess of right foot: (2) Chronic ulcer of right foot: Plan Right plantar forefoot excisional debridement with possible skin substitute and wound VAC application scheduled with Dr. Elias 09/21/2023.
[2023-09-18 09:11] LABS: Basophils Absolute Auto 0.1 10^3/uL (0.0-0.1); Basophils Percent Auto 0.9 % (0.2-2.0); Eosinophils Absolute Auto 0.3 10^3/uL (0.0-0.7); Eosinophils Percent Auto 2.3 % (0.9-7.0); Hemoglobin 10.3 g/dL (14.0-18.0); Immature Granulocytes Abs Auto 0.07 10^3/uL (0.00-0.03); Immature Granulocytes Pct Auto 0.6 % (0.0-0.5); Lymphocytes Absolute Auto 2.4 10^3/uL (1.2-3.8); Lymphocytes Percent Auto 19.6 % (20.5-60.0); Mean Corpuscular HGB Conc 29.4 g/dL (29.9-35.2); Mean Corpuscular Hemoglobin 22.2 pg (25.9-34.0); Mean Corpuscular Volume 75.3 fL (80.0-94.0); Mean Platelet Volume 10.9 fL (9.5-13.5); Monocytes Absolute Auto 1.2 10^3/uL (0.3-0.8); Neutrophils Absolute Auto 8.2 10^3/uL (1.4-6.5); Neutrophils Percent Auto 66.6 % (43.0-75.0); Platelet Count 300 10^3/uL (150-450); Red Blood Count 4.65 10^6/uL (4.70-6.10); Red Cell Distribution Width 18.8 % (11.0-15.0); White Blood Count 12.4 10^3/uL (4.0-11.0)
[2023-09-18 09:25] LABS: Anion Gap 15.5; BUN Creatinine Ratio 9.3; Calcium 8.9 mg/dL (8.5-10.1); Carbon Dioxide 28.2 mmol/L (21.0-32.0); Chloride 97 mmol/L (98-107); Estimated GFR (African America 33 (>=60); Estimated GFR (Non-African Ame 27 (>=60); Glucose 200 mg/dL (74-106); Potassium 3.7 mmol/L (3.5-5.1); Sodium 137 mmol/L (136-145)
[2023-09-18 09:26] LABS: INR 1.08; Prothrombin Time 11.4 sec (9.0-11.6)
== END 2023-09-18 07:56 | disposition home or self-care (01) ==
LOC: PST 07:57
PROVIDERS: PCP Family Medicine; Visit Provider Podiatrist Foot & Ankle Surgery
DX: Z01.810 Encounter for preprocedural cardiovascular examination (principal); Z01.812 Encounter for preprocedural laboratory examination; Z01.818 Encounter for other preprocedural examination; L97.511 Non-pressure chronic ulcer of other part of right foot limited to breakdown of skin; L02.611 Cutaneous abscess of right foot; E11.621 Type 2 diabetes mellitus with foot ulcer; L97.415 Non-pressure chronic ulcer of right heel and midfoot with muscle involvement without evidence of necrosis
CPT/HCPCS: 80048; 85025; 85610; 85730; 93005; G0463

== ENCOUNTER 2023-09-18 15:35 | Outpatient (OUT) | payer OTHER, SELFPAY | END 2023-09-18 15:36 | disposition home or self-care (01) | LOC: WC 15:35 | PROVIDERS: PCP Family Medicine; Visit Provider Physician Assistant | DX: E11.621 Type 2 diabetes mellitus with foot ulcer (principal); L97.415 Non-pressure chronic ulcer of right heel and midfoot with muscle involvement without evidence of necrosis | CPT/HCPCS: G0463 ==

== ENCOUNTER 2023-09-21 07:48 | Day surgery (SDC) | payer OTHER, SELFPAY ==
[2023-09-18 08:39] VITALS: BP 111/69; PULSE 101; TEMP 36.4; O2SAT 98; BMI 28.0
[2023-09-21] VITALS (8 sets, daily range): BP systolic 88–115; BP diastolic 53–80; PULSE 69–103; TEMP 35.8–36.3; O2SAT 92–100; BMI 26.9
[2023-09-21 08:05] LABS: Glucometer 108 mg/dL (74-106)
[2023-09-21] MEDS: LACTATED RINGER'S SOLUTION 1,000 ML 50 ML IV (08:17)
[2023-09-21] MEDS: CLINDAMYCIN PHOSPHATE/D5W 900 MG/50 ML PIGGYBACK 100 MG IV (09:06)
--- NOTE | 2023-09-21 09:20 | PM.ORONB ---
Brief Operative Note Date of procedure: 09/21/23 Pre-op diagnosis general: Right diabetic foot ulcer, puncture injury Post-op diagnosis: same as pre-op Procedure: PROCEDURE PERFORMED: right foot incision/debridement of bone with application of synthetic allogenic skin substitute & posterior splint INDICATION FOR PROCEDURE: patient is a 58-year-old poorly controlled diabetic male with multiple comorbidities who was admitted on 08/03/23 for infected diabetic foot wound. At that time construction was occurring in his home and believes he may have stepped on something sharp. During his admission at that time he underwent I and D and is acute signs of infection improved. He has been following up in the wound center and undergoing serial debridements, local wound care, dressing changes and offloading. His wound unfortunately has not significantly improved therefore I recommended operative debridement and possibly placement allogenic skin substitute. I reviewed the potential risks and benefits and all of his questions were answered. INTRAOPERATIVE FINDINGS: Preoperative wound measurements: 4.0 x 3.5 x 0.5 cm. upon debridement small amount of purulence was noted around the medial sesamoid which is drained. The medial sesamoid was excised and bone was soft. Plantar 1st metatarsal bone also exposed. Wound edges were sluggish to bleed. given the concern for residual infection synthetic allogenic skin substitute was used PROCEDURE IN DETAIL: Patient was identified in pre op and consent was reviewed. Correct side and site were identified and marked. Pre-op antibiotics were started. Patient was brought to OR suite and place on table in a supine position. General anesthesia was administered. Operative extremity was prepped and draped in usual sterile fashion. Formal time-out was performed. With attention to the ulcer located on the plantar medial right foot operative measurements were obtained. The wound was then excised to one hundred percent granular healthy base using scalpel and forceps followed by versa jet. medial sesamoid and plantar 1st metatarsal were exposed were notably involved and all nonviable tissue was excised which included the medial sesamoid. a small amount of purulence was also noted and tissue swab was taken. The wound and surgical site were irrigated with copious amounts of sterile saline. clean/proximal bone specimen was then obtained with a clean rongeur from the plantar 1st met. The synthetic allogenic skin substitute was then applied according to the factory manager's standard directions and was held in place with adhesive wound drape. Surgical site was irrigated again with saline. a bulky dry sterile dressing was applied followed by multiple layers of cast padding and a layer Omero wraps followed by additional layers of cast padding and a posterior splint which was then held in place with Omero wraps and the foot and ankle were held in neutral position until dry POSTOPERATIVE PLAN: Discharge home under family's care Post op instructions provided verbally and written Keep dressing clean, dry and intact unless otherwise directed; reinforce if needed prescription(s) were placed in chart WB Status: NWB right forefoot Follow-up within 1 week Implants: SDRM synthetic allogenic skin substitute Anesthesia: General-LMA Surgeon: Fredy Elias Operations Leader: Franklin Trejo Estimated blood loss (mL): 25 Tourniquet time (min): 0 Pathology: other (tissue swab, medial sesamoid bone from right foot) Condition: stable Disposition: PACU
[2023-09-21 10:25] LABS: Glucometer 104 mg/dL (74-106)
--- NOTE | 2023-09-21 10:49 | XR_ITS ---
The [address] [address] Patient Name: MYRA FELIPE MRN: [id number] date: 1965 Sex: M Assigned Patient Location: [facility] Current Patient Location: Accession/Order Number: [id number] Exam Date: 09/21/2023 10:40 Report Date: 09/22/2023 07:39 At the request of: DUARTE MORALES Procedure: XR foot RT min 3V PROCEDURE: XR foot RT min 3V HISTORY: postop xr pacu COMPARISON: XR foot right 08/03/2023 FINDINGS: BONES:No fracture, acute abnormality, or significant arthropathy. SOFT TISSUES:Soft tissue lucency along the plantar surface at level of first metatarsal head. No radiopaque foreign body. EFFUSION:None visible. OTHER: Negative. XR/XR foot RT min 3V IMPRESSION: 1. Images were obtained to cast material which limits evaluation. 2. Plantar soft tissue lucency suspected to be site of recent surgery. 3. No appreciable osseous changes to suggest osteomyelitis. Electronically authenticated by: LYSSA PERDOMO Date: 09/22/2023 07:39
[2023-09-21] MEDS: OXYCODONE HCL/ACETAMINOPHEN 5MG/325MG 1 TAB PO (11:14)
== END 2023-09-21 11:30 | disposition home or self-care (01) ==
PROVIDERS: PCP Family Medicine; Visit Provider Podiatrist Foot & Ankle Surgery
PROC: (CPT 00400; principal; 2023-09-21 09:00)
DX: E11.621 Type 2 diabetes mellitus with foot ulcer (principal); L97.511 Non-pressure chronic ulcer of other part of right foot limited to breakdown of skin; Z79.01 Long term (current) use of anticoagulants; L02.611 Cutaneous abscess of right foot; E11.69 Type 2 diabetes mellitus with other specified complication; M86.171 Other acute osteomyelitis, right ankle and foot; I50.9 Heart failure, unspecified; M19.90 Unspecified osteoarthritis, unspecified site; K21.9 Gastro-esophageal reflux disease without esophagitis; E78.00 Pure hypercholesterolemia, unspecified; I25.2 Old myocardial infarction; I25.10 Atherosclerotic heart disease of native coronary artery without angina pectoris; N40.1 Benign prostatic hyperplasia with lower urinary tract symptoms; N13.8 Other obstructive and reflux uropathy; F03.90 Unspecified dementia, unspecified severity, without behavioral disturbance, psychotic disturbance, mood disturbance, and anxiety; E11.22 Type 2 diabetes mellitus with diabetic chronic kidney disease; N18.4 Chronic kidney disease, stage 4 (severe); J44.9 Chronic obstructive pulmonary disease, unspecified; I70.209 Unspecified atherosclerosis of native arteries of extremities, unspecified extremity; E11.42 Type 2 diabetes mellitus with diabetic polyneuropathy; I13.0 Hypertensive heart and chronic kidney disease with heart failure and stage 1 through stage 4 chronic kidney disease, or unspecified chronic kidney disease; Z95.5 Presence of coronary angioplasty implant and graft; Z98.49 Cataract extraction status, unspecified eye; F17.210 Nicotine dependence, cigarettes, uncomplicated; Z79.82 Long term (current) use of aspirin; Z79.84 Long term (current) use of oral hypoglycemic drugs; Z79.899 Other long term (current) drug therapy; Z79.85 Long-term (current) use of injectable non-insulin antidiabetic drugs
CPT/HCPCS: 00400; 01480; 15004; 15275; 28005; 36415; 36416; 73630; 82948; 87070; 87150; 87186; 87205; 88305; 88311; 99999; A2011; J1094; J2704

== ENCOUNTER 2023-09-25 14:46 | Outpatient (OUT) | payer OTHER, SELFPAY | END 2023-09-25 14:47 | disposition home or self-care (01) | LOC: WC 14:46 | PROVIDERS: PCP Family Medicine; Visit Provider Podiatrist Foot & Ankle Surgery | DX: E11.621 Type 2 diabetes mellitus with foot ulcer (principal); L97.415 Non-pressure chronic ulcer of right heel and midfoot with muscle involvement without evidence of necrosis | CPT/HCPCS: G0463 ==

== ENCOUNTER 2023-09-30 16:02 | Inpatient (IN) | payer OTHER, SELFPAY ==
[2023-09-30] VITALS (44 sets, daily range): BP systolic 91–117; BP diastolic 58–75; PULSE 81–115; TEMP 36.4–37.1; O2SAT 78–100; BMI 28.2
--- NOTE | 2023-09-30 16:11 | ECG_ITS ---
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
--- OUTSIDE RECORDS SUMMARY | 2023-09-30 16:12 | XMS_ITS | CCD ---
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 Jenaro Orona Primary Care UnavailDolores Vaughn Attending Unavailable Dolores Feldman Attending Unavailable Dolores Feldman Referring Unavailable Syed, Dr. Jenaro Orona Primary Care UnavailDolores Vaughn Attending Unavailable Dolores Feldman Referring Unavailable Syed, Dr. Jenaro Orona Primary Care Unavailmaría Inman II, Dr. Raulito Orona Referring Unavailable Syed, Dr. Jenaro Orona Primary Care Unavailamría Inman II, Dr. Raulito Orona Attending Unavailable DO Jenaro Lynch Primary Care Provider MD Nancy Wilson Emergency Provider Yeyo ROWE Attending Unavailable ROWE, Yeyo R Attending Unavailable [...] Referring Unavailable ROWE, Yeyo R Attending Unavailable DO Jenaro Lynch Primary Care Provider [phone] MD Nancy Wilson Emergency Provider JERARDO Mclaughlin Attending Provider JERARDO Mclaughlin Referring Provider LINDSEY Elias Attending Provider Fredy Elias Admitting Unavailable Fredy Elias Attending Unavailable Jenaro Lynch Primary Care Unavailable [facility], Jenaro Guerra Admitting Unavailable [facility], Jenaro P Attending Unavailable Jenaro Lynch Primary Care Unavailable Jenaro Lynch Primary Care Unavailable Shana Mclaughlin Admitting Unavailable Shana Mclaughlin Attending Unavailable Shana Mclaughlin Referring Unavailable Jenaro Lynch Primary Care Unavailable Nancy Wilson Admitting Unavailable Nancy Wilson Attending Unavailable Allergies Allergy Classification Reported Allergen(s) Allergy Type Date of Onset Reaction(s) Facility (19 sources) natural latex rubber; 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: [Latex] Allergy to substance (finding) Itching (finding), Eruption of skin (disorder) [facility] (20 sources) Penicillins; 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: [Penicillins] Allergy to drug (finding) 07-14-19 Anaphylactoid reaction (disorder) [facility] (20 sources) Acetaminophen / oxyCODONE Drug Allergy vomiting [facility] Other (20 sources) tamsulosin Drug Allergy 07-14-19 hives [facility] (20 sources) PENICIILIN Propensity to adverse reactions SWELLING OF AIRWAY [facility] Other (4 sources) Acetaminophen; 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: [acetaminophen] Drug Allergy 07-14-19 21 Vomiting [facility] (5 sources) oxyCODONE; 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: [Oxycodone] Drug Allergy 02-08-20 17 Vomiting [facility] (1 source) Penicillins Drug allergy (disorder) 09-23-19 14 [facility] (13 sources) Penicillin G; 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: [penicillin G benzathine] Drug Allergy [facility] (8 sources) Penicillin Drug Allergy anaphylaxis [facility] Other (1 source) Penicillins Drug allergy (disorder) 07-31-19 24 [facility] (1 source) tamsulosin Drug Allergy 07-31-19 [facility] Medications Current Medications Medication Drug Class(es) Dates Sig (Normalized) Sig (Original) acetaminophen 325 mg / HYDROcodone bitartrate 5 mg oral tablet (20 sources) Opioid Agonist Start: 07-26-2023 take 1 tablet by mouth four times daily as needed Hydrocodone-Aceta minophen Active TAB PO July 26, 2023 1:00am FreeTextSi tablet Orally QID PRN; Note: Source Status: Refill; Refills: 0; Provider: Syed Guerra Start: 04-11-2023 take 1 tablet by kalie th four times daily as needed HYDROcodone-Acetaminophen 5-325 MG 1 tab let Orally QID PRN Apr, Active Start: 11-11-2022 [...] 1 TAB PO Q6H July 24, 2019 1:00am July 14, 2020 12:39pm Start: 10-10-2014 Bryan 325 mg-5 mg oral tablet 1 tab(s), [...] INHALATION EVERY 4-6 HOURS June 28, 2019 1:00am Start: 12-04-2017 take 2 puff(s) by in [...] 25 MG PO Daily July 12, 2023 1:00am Start: 11-23-2022 take 1 mg by mouth [...] 80 MG PO Daily August 08, 2019 1:00am Start: 07-10-2014 End: 07-24-2019 take 80 mg by mouth once daily Atorvastatin Discontinu ed 80 MG PO Daily April 01, 2018 12:00am March 13, 2019 8:00am Blood Glucose Meter kit (20 sources) Start: 12-16-2013 Start: 12-16-2013 Blood Glucose Meter kit as directed BID Dec, Active Blood Pressure Kit - (20 sources) Start: 09-20-2019 Start: 09-20-2019 Blood Pressure Kit - check bp 1-2 times a day and prn Sep, Active 120 actuat budesonide 0.16 mg/actuat / formoterol fumarate 0.0045 mg/actuat metered dose inhaler (2 sources) Corticosteroid, beta2-Adrenergic Agonist Start: 07-12-2023 Budesonide-Formoterol (Symbicort) 160-4.5 mcg/actuation HFA aerosol inhaler Active 1 INH INHALATION Twice daily July 12, 2023 1:00am clarithromycin 500 mg oral tablet (6 sources) Macrolide Antimicrobial Start: 08-02-2021 take 1 tablet by mouth every twelve hours Clarithromycin 500 MG 1 tablet Orally every 12 hrs for 10 day(s) Jul, Active diazePAM 5 mg oral tablet (20 sources) Benzodiazepine Start: 07-26-2023 take 1 tablet by mouth once daily as needed Diazepam Active 5 MG PO Daily July 26, 2023 1:00am FreeTextSi tablet as needed Orally Once a day; Note: Source Status: Takingprn; Refills: 0; Provider: Syed Guerra Start: 05-21-2020 End: 07-12-2023 take 5 mg by mouth once daily Diazepam Discontinued 5 MG PO Daily July 14, 2020 1:00am July 12, 2023 6:30pm 0.5 ml dulaglutide 1.5 mg/ml auto-injector (20 sources) GLP-1 Receptor Agonist Start: 07-12-2023 Dulaglutide (Trulicity) 0.75 mg/0.5 mL pen injector Active 0.75 MG SUBCUT every week July 12, 2023 1:00am Start: 01-30-2023 Trulicity Pen 1.5 mg/0.5 mL [...] Cotransporter 2 Inhibitor Start: 11-23-2022 take 1 tablet by mouth once daily Empagliflozin (Jardiance) 10 mg tablet Active 10 MG PO Daily July 12, 2023 1:00am Start: 09-28-2020 take 1 tablet by kalie [...] sulfate 142 mg extended release oral tablet (7 sources) Start: 07-26-2023 Ferrous Sulfat e (Slow Fe) 137 mg (45 mg iron) tablet extended release Active MG PO July 26, 2023 1:00am Start: 04-06-2023 take 1 tablet by kalie th three times weekly Slow Fe 142 (45 Fe) MG 1 tablet Orally Three times a Week for 30 day(s) Apr, Active 1.5 ml fremanezumab-vfrm 150 mg/ml prefilled syringe (2 sources) Start: 07-12-2023 Fremanezumab-Vfrm (Ajovy Autoinjector) 225 mg/1.5 mL auto-injector Active 225 MG SUBCUT Q30D July 12, 2023 1:00am furosemide 20 mg oral tablet (5 sources) Loop Diuretic Start: 07-12-2023 take 1 tablet by mouth once daily in the morning Furosemide (Lasix) 20 mg tablet Active 20 MG PO Every morning July 12, 2023 1:00am Start: 03-13-2019 End: 07-14-2020 take 20 mg by mouth once daily Furosemide Discontinued 20 MG PO Daily March 13, 2019 12:00am July 14, 2020 12:39pm glimepiride 2 mg oral tablet (20 sources) Sulfonylurea Start: 10-31-2013 take 2 mg by mouth twice daily Glimepiride Active 2 MG PO Twice daily April 01, 2018 12:00am hydroCHLOROthiazide 12.5 mg / valsartan 160 mg oral tablet (20 sources) Thiazide Diuretic, Angiotensin 2 Receptor Saida Start: 11-23-2022 take 1 tablet by mouth once daily Valsartan-Hydroc hlorothiazide Active 1 TAB PO Daily July 12, 2023 1:00am take 1 tablet by kalie th once daily Valsartan-hydroCHLOROthiazide 160-12.5 M G 1 tablet Orally Once a day Active take 1 tablet by kalie th every eight hours take 1 tablet by kalie th three times daily Valsartan-hydroCHLOROthiazide 160-12.5 M G 1 tablet Orally TID Active ibuprofen 200 mg oral tablet (20 sources) Nonsteroidal Anti-inflammatory Drug Start: 07-26-2023 take 1 tablet by mouth three times daily at mealtime as needed Ibuprofen Active 200 MG PO Three times daily July 26, 2023 1:00am FreeTextSi tablet with food or milk as needed Orally Three times a day; Note: Source Status: Taking; Provider: Syed Eason ( ) take 1 tablet by kalie th three times daily at mealtime as needed Ibuprofen 200 MG 1 tablet with food or milk as needed Orally Three times a day Active 24 hr isosorbide mononitrate 30 mg extended release oral tablet (15 sources) Nitrate Vasodilator Start: 07-12-2023 take 30 mg by mouth once daily Isosorbide Mononitrate Active 30 MG PO Daily July 12, 2023 1:00am Start: 01-11-2023 take 1 tablet by kalie th once daily Isosorbide Mononitrate ER 30 MG Oral Tablet Extended Release 24 Hour TAKE 1 TABLET DAILY DIRECTED. Quantity: 30 Refills: 6 Ordered: 11-Jan-2023 Julius Feldman JOSE-DOUGHNUT MACHINE OPERATOR Dolores Start : 11-Jan-2023 Active new start Start: [...] Active 1000 MG PO Twice daily April 02, 2018 12:00am take 1 tablet by kalie every twelve hours metFORMIN HCl - 1000 MG Oral Tablet TAKE 1 TABLET EVERY 12 HOURS. Quantity: 0 Refills: 0 Ordered: 26-Oct-2021 DO Active metoprolol tartrate 100 mg oral tablet (20 sources) beta-Adrenergic Saida Start: 04-01-2018 take 50 mg by mouth twice daily Metoprolol Tartrate Active 50 MG PO Twice daily April 01, 2018 12:00am Start: 04-01-2018 take 100 mg by mouth [...] 5 to 15 minutes July 12, 2023 1:00am do not exceed 3 doses per episode Start: 07-10-2014 End: 03-13-2019 Nitroglycerin Discontinued 0 .4 MG SUBLINGUAL every 5 to 15 minutes April 01, 2018 12:00am March 13, 2019 8:00am Nitroglycerin 0. 4 MG as directed Sublingual Active omeprazole 40 mg delayed release oral capsule (20 sources) Proton Pump Inhibitor Start: 07-26-2023 take 1 capsule by mouth once daily Omeprazole Active 40 MG PO Daily July 26, 2023 1:00am FreeTextSi capsule Orally Once a day; Note: Source Status: Taking; Refills: 1; Qty: 90 Capsule; Provider: Syed Guerra Start: 11-23-2022 Prilosec Oral, Daily Start Date: 11/23/22 Status: Ordered Start: 07-24-2019 End: 07-26-2023 take 40 mg by mouth once daily Omeprazole Discontinued 40 MG PO Daily July 24, 2019 1:00am July 26, 2023 5:38pm Start: 07-24-2019 take 20 mg by mouth once daily Omeprazole Active 20 MG PO Daily July 24, 2019 1:00am Start: 01-02-2018 End: 07-24-2019 take 40 mg by mouth once daily Omeprazole Discontinued 40 MG PO Daily April 01, 2018 12:00am July 24, 2019 2:52pm ProAir HFA 108 (90 Base) MCG/ACT (20 sources) Start: 12-04-2017 take 2 puff(s) by inhalation every four hours as needed ProAir HFA 108 (90 Base) MCG/ACT 2 puffs as needed Inhalation Q4H PRN PRN Dec, Active Start: 12-04-2017 take 2 puff(s) by inhalation e very four hours as needed rimegepant 75 mg disintegrating oral tablet (2 sources) Start: 07-12-2023 take 1 tablet by mouth once daily Rimegepant (Nurtec Odt) 75 mg tablet,disintegrating Active 75 MG PO Daily July 12, 2023 1:00am sildenafil 100 mg oral tablet (20 sources) Phosphodiesterase 5 Inhibitor Start: 05-07-2018 take 1 tablet by mouth once daily Sildenafil (Viagra) 100 mg Tablet Active 100 MG PO Daily March 13, 2019 12:00am SITagliptin 100 mg oral tablet (20 sources) Dipeptidyl Peptidase 4 Inhibitor Start: 07-09-2020 take 1 tablet by mouth once daily Sitagliptin Phosphate (Januvia) 100 mg tablet Active 100 MG PO Daily July 12, 2023 1:00am tamsulosin hydrochloride 0.4 mg oral capsule (11 sources) alpha-Adrenergic Saida Start: 06-26-2023 take 0.4 mg by mouth twice daily Tamsulosin Active 0.4 MG PO Twice daily July 12, 2023 1:00am Start: 02-14-2023 take 1 capsule by mo ut twice daily tamsulosin 0.4 mg Cap 0.4 mg = 1 cap(s), Oral, BID, # 60 cap(s), Refills(s) 3, Pharmacy: [facility]/pharmacy #[id number], 182, cm, 02/14/23 8:58:00 EDT, Height/Length Dosing, 94, kg, 01/30/23 10:24:00 EDT, Weight Dosing Start Date: 02/14/23 Status: Ordered take 1 capsule by [facility] once daily Tamsulosin HCl - 0.4 MG Oral Capsule TAKE 1 CAPSULE Daily Quantity: 0 Refills: 0 Ordered: 15-Feb-2023 DO Active TENS Unit (20 sources) Start: 01-27-2014 Start: 01-27-2014 TENS Unit as d irected Use as directed. Jan, Active Tiotropium [place] (Spiriva With Handihaler) 18 mcg capsule, w/inhalation device (2 sources) Start: 07-12-2023 take 1 capsule by inhalation once daily Tiotropium [place] (Spiriva With Handihaler) 18 mcg capsule, w/inhalation device Active 1 CAP INHALATION Daily July 12, 2023 1:00am puncture 1 cap using device; one dose = 2 inhalations Start: 07-12-2023 take 1 capsule by in halation once daily Tiotropium [place] (Spiriva With Handihaler) 18 mcg capsule, w/inhalation device Active 1 CAP INHALATION Daily July 12, 2023 12:00am puncture 1 cap using device; one dose = 2 inhalations tiZANidine 4 mg oral tablet (20 sources) Central alpha-2 Adrenergic Agonist Start: 07-12-2023 take 4 mg by mouth once daily at bedtime Tizanidine Active 4 MG PO Daily at bedtime July 12, 2023 1:00am Start: 11-23-2022 take 1 mg by mouth t hree times daily tizanidine 4 mg oral capsule mg cap(s), Oral, TID Start Date: 11/23/22 Status: Ordered Start: 07-04-2022 take 1 tablet by kalie th every twelve hours tiZANidine HCl 4 MG 1 tablet as needed Orally Twice a day Jun, Active take 2 tablets by mo [facility] at bedtime tiZANidine HCl - 4 MG Oral Tablet TAKE 2 TABLETS AT BEDTIME. Quantity: 0 Refills: 0 Ordered: 11-Jan-2023 DO Active traMADol hydrochloride 50 mg oral tablet (13 sources) Opioid Agonist Start: 07-26-2023 take 1 tablet by mouth four times daily as needed Tramadol Active 50 MG PO July 26, 2023 1:00am FreeTextSi tablet as needed Orally QID; Note: Source Status: Taking; Refills: 0; Provider: Syed Guerra Start: 02-27-2023 take 1 tablet by kalie th every six hours traMADol HCl 50 MG 1 tablet as needed Orally QID for 7 days Feb, Active Start: 03-13-2019 End: 07-24-2019 take 50 mg by mouth four times daily Tramadol Discontinued 50 MG PO Four times daily March 13, 2019 12:00am July 24, 2019 2:52pm Completed/Discontinued Medications Medication Drug Class(es) Dates Sig (Normalized) Sig (Original) alogliptin 25 mg oral tablet (6 sources) Start: 07-14-2020 End: 07-12-2023 take 1 tablet by mouth once daily Alogliptin (Nesina) 25 mg Tablet Discontinued 25 MG PO Daily July 14, 2020 1:00am July 12, 2023 6:30pm Start: 03-13-2019 End: 02-14-2020 take 1 tablet by mouth once daily Alogliptin (Nesina) 25 mg Tablet Discontinued 25 MG PO Daily March 13, 2019 12:00am February 14, 2020 9:18am ALPRAZolam 0.5 mg oral tablet (11 sources) Benzodiazepine Start: 08-08-2019 End: 07-14-2020 take 1 tablet by mouth once daily Alprazolam (Xanax) 0.5 mg Tablet Discontinued 0.5 MG PO Daily August 08, 2019 1:00am July 14, 2020 12:39pm Start: 03-13-2019 End: 07-24-2019 take 2 tablets by mouth once daily Alprazolam (Xanax) 0.5 mg Tablet Discontinued 1 MG PO Daily March 13, 2019 12:00am July 24, 2019 2:52pm take 1 tablet by kalie th three times daily as needed ALPRAZolam 0.5 MG Oral Tablet TAKE 1 TABLET 3 TIMES DAILY NEEDED. Quantity: 0 Refills: 0 Ordered: 26-Oct-2021 DO Active amLODIPine 10 mg oral tablet (15 sources) Dihydropyridine Calcium Channel Saida Start: 04-01-2018 End: 07-24-2019 take 5 mg by mouth once daily Amlodipine Discontinued 5 MG PO Daily April 01, 2018 12:00am July 24, 2019 2:52pm Start: 10-31-2013 take 1 tablet by kalie [...] daily Aspirin Active 81 MG PO Daily April 01, 2018 12:00am busPIRone hydrochloride 10 mg oral tablet (3 sources) Start: 03-13-2019 End: 07-24-2019 take 10 mg by mouth twice daily Buspirone Discontinued 10 MG PO Twice daily March 13, 2019 12:00am July 24, 2019 2:52pm clopidogrel 75 mg oral tablet (20 sources) P2Y12 Platelet Inhibitor Start: 07-10-2014 End: 06-28-2019 take 75 mg by mouth once daily Clopidogrel Discontinued 75 MG PO Daily April 01, 2018 12:00am June 28, 2019 11:24am dicyclomine hydrochloride 20 mg oral tablet (12 sources) Anticholinergic Start: 05-22-2020 End: 07-12-2023 take 20 mg by mouth three times daily Dicyclomine Discontinued 20 MG PO Three times daily July 14, 2020 1:00am July 12, 2023 6:30pm doxycycline hyclate 100 mg oral capsule (10 sources) Tetracycline-class Drug Start: 01-30-2023 take 1 capsule by mouth once daily doxycycline hyclate 100 mg Cap 100 mg = 1 cap(s), Oral, Daily, Take 1 pill the day before the procedure and 1 pill after the procedure, # 2 cap(s), Refills(s) 0, Pharmacy: [facility]/pharmacy #[id number], 182, cm, 01/30/23 10:24:00 EDT, Height/Length Dosing, 94, kg, 01/30/23 10:24:00 EDT, Weight Dosing Start Date: 01/30/23 Status: Ordered hydroCHLOROthiazide 25 mg / losartan potassium 100 mg oral tablet (3 sources) Thiazide Diuretic, Angiotensin 2 Receptor Saida Start: 04-01-2018 End: 03-13-2019 take 1 tablet by mouth once daily Losartan-Hydroch lorothiazide Discontinued 1 TAB PO Daily April 01, 2018 12:00am March 13, 2019 8:00am hydroCHLOROthiazide 12.5 mg / olmesartan medoxomil 40 mg oral tablet (3 sources) Thiazide Diuretic, Angiotensin 2 Receptor Saida Start: 07-24-2019 End: 07-14-2020 take 1 tablet by mouth once daily Olmesartan-[place] chlorothiazide (Benicar Hct) 40-12.5 mg Tablet Discontinued 1 TAB PO Daily July 24, 2019 1:00am July 14, 2020 12:39pm Ketorolac (20 sources) Nonsteroidal Anti-inflammatory Drug, Cyclooxygenase Inhibitor Start: 01-15-2018 Toradol per 15 mg Jan, 2 cc Start: 01-05-2018 Toradol per 15 mg Jan, 2 cc Start: 01-04-2018 Toradol per 15 mg Jan, 2 cc lansoprazole 30 mg delayed release oral capsule (3 sources) Proton Pump Inhibitor Start: 07-24-2019 End: 07-14-2020 take 1 capsule by mouth twice daily Lansoprazole (Prevacid) 30 mg Capsule,Delayed Release(Dr/Ec) Discontinued 30 MG PO Twice daily July 24, 2019 1:00am July 14, 2020 12:39pm olmesartan medoxomil 5 mg oral tablet (6 sources) Angiotensin 2 Receptor Saida Start: 03-13-2019 End: 07-24-2019 take 1 tablet by mouth once daily Olmesartan (Benicar) 5 mg Tablet Discontinued 5 MG PO Daily June 28, 2019 1:00am July 24, 2019 2:52pm pregabalin 200 mg oral capsule (20 sources) Start: 08-08-2019 End: 07-27-2023 take 1 capsule by mouth three times daily Pregabalin (Lyrica) 200 mg capsule Discontinued 200 MG PO Three times daily July 26, 2023 5:41pm July 27, 2023 8:40am Start: 01-24-2011 End: 07-24-2019 take 1 capsule by mouth three times daily Pregabalin (Lyrica) 200 mg Capsule Discontinued 200 MG PO Three times daily April 01, 2018 12:00am July 24, 2019 2:52pm 12 hr ranolazine 1000 mg extended release oral tablet (15 sources) Anti-anginal Start: 07-10-2014 End: 07-14-2020 take 1 tablet by mouth twice daily Ranolazine (Ranexa) 1,000 mg Tablet Extended Release 12 Hr Discontinued 1000 MG PO Twice daily April 01, 2018 12:00am July 14, 2020 12:39pm rOPINIRole 1 mg oral tablet (20 sources) Nonergot Dopamine Agonist Start: 01-24-2011 End: 09-07-2023 take 1 tablet by mouth three times daily Ropinirole (Requip) 1 mg Tablet Discontinued 1 MG PO Three times daily April 01, 2018 12:00am September 07, 2023 3:42pm tiotropium 0.018 mg inhalation powder (20 sources) [...] mg traZODone hydrochloride 50 mg oral tablet (3 sources) Serotonin Reuptake Inhibitor Start: 07-24-2019 End: 07-14-2020 take 50 mg by mouth at bedtime Trazodone Discontinued 50 MG PO Bedtime July 24, 2019 1:00am July 14, 2020 12:40pm Triamcinolone (20 sources) Corticosteroid Start: 10-02-2013 KENALOG - 10 mg Sep, 1 cc varenicline 1 mg oral tablet (3 sources) Partial Cholinergic Nicotinic Agonist Start: 07-14-2020 End: 07-12-2023 take 1 tablet by mouth twice daily Varenicline (Chantix Continuing Month Box) 1 mg tablet Discontinued 1 MG PO Twice daily July 14, 2020 1:00am July 12, 2023 6:30pm Problems Active Problems Problem Classification Problem Date Documented Da te Episodic/Chronic Abdominal pain (20 sources) Abdominal pain; 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: [Unspecified abdominal pain] Episodic Acute and unspecified renal failure (20 sources) Renal failure syndrome; 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: [Unspecified kidney failure] Chronic Acute myocardial infarction (20 sources) Myocardial infarction 10-10-2014 Chronic Anxiety disorders (20 sources) Anxiety; 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: [Anxiety disorder, unspecified] Onset: 2 Resolved: Chronic Asthma (20 sources) Asthmatic bronchitis; 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: [...] [Coronary atherosclerosis of unspecified type of vessel, [place] or graft] Onset: 2 Resolved: 2 Chronic [...] (20 sources) Headache; 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: [Headache] 11-23-2022 Episodic Heart valve disorders (12 sources) Heart murmur [...] with vomiting, unspecified] Episodic Nonspecific chest pain (3 sources) Chest pain; 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: [Chest pain, unspecified] 04-01-2018 Episodic Nutritional deficiencies (20 sources) Vitamin D deficiency; 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: [Vitamin D deficiency, unspecified] Onset: 2 Resolved: 2 Chronic Osteoarthritis (12 sources) Arthritis 01-16-2013 Chronic Other acquired deformities (20 sources) Contracture of joint of hand; 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: [Contracture, 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 Other aftercare (20 sources) Long-term current use of insulin; 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: [MCC (current) use of insulin] Episodic Other and [...] 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: [Insomnia, unspecified] Episodic Residual codes; unclassified (3 sources) FH: premature coronary heart disease; 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: [...] Classification Problem Date Documented Da te Episodic/Chronic Headache; including migraine (5 sources) Headache; including migraine Neoplasms of unspecified nature or uncertain behavior [...] Test Name Value Interpretation Reference Range Facility [facility] 09-21-2023 L Specimen: [id number] Received: 09/21/23 Status: COLTON Nath Num: [id number] Spec Type: Surgical Subm Dr: Fredy Elias DPM, MS Tissues: A Bone Fragments - Other than Path Fracture Procedures: HE, Gross/Micro L3, Decalcification Age/ Patient Sex Location Account Attending Physician Solomon Feldman SR 58/M LABELL [id number] Fredy Elias DPM, MS SPEC NUM: [id number] RECD: 09/21/23 STATUS: COLTON NATH NUM: [id number] SHAKIRA: 09/21/[address]: Fredy Elias DPM, MS ENTERED: 09/21/[address]: SPEC TYPE: Surgical DEPT: RAMSEY MARCANO ENTERED BY: [id number] RECV BY: [id number] ORDERED: LULU, Gross/Micro L3, Decalcification ORDERED: LULU, Gross/Micro L3, Decalcification Pathological Diagnosis Right foot sesamoid bone, right plantar forefoot excisional debridement: -Fragment of the degenerated sesamoid bone with focally fractured cortical surfaces, and the mildly associated acute osteomyelitis Gross Description The specimen is received in formalin, labeled with the patient's name and right foot sesamoid , consisting of a 1.0 x 0.9 x 0.5 cm irregularly-shaped fragment of bone. The surface is covered by unremarkable articular cartilage. The specimen is trisected and entirely submitted in A1 following decal. Clinical history: Non pressure chronic ulcer right plantar forefoot excisional debridement with skin substitute. CPT Codes 94305, 13546 Specimen: [id number] Received: 09/21/23 Status: FRANCISCODaniel Nath Num: [id number] Spec Type: Surgical Subm Dr: Fredy Elias,LINDSEY, MS Tissues: A Bone Fragments - Other than Path Fracture Procedures: LULU Gross/Micro L3, Decalcification Patient: Solomon Feldman [id number] (Continued) Signed (signature on file) Victor Hugo Sotelo MD 09/26/23 0843 Normal [facility] Activated partial thrombopla stin time (aPTT) in platelet poor plasma by coagulation aon 09-18-2023 aPTT Coag (PPP) [Time] 32.0 s 22.3-36.2 [facility] Basophils Auto (Bld) [#/Vol] on 09-18-2023 Basophils (Bld) [#/Vol] 0.1 10 3/uL 0.0-0.1 [facility] Basophils/100 WBC Auto (Bld) on 09-18-2023 Basophils/100 WBC (Bld) 0.9 % 0.2-2.0 [facility] Eosinophils/100 WBC Auto (Bl d)on 09-18-2023 Eosinophils/100 WBC (Bld) 2.3 % 0.9-7.0 [facility] Erythrocyte distribution wid th Auto (RBC) [Ratio]on 09-18-2023 Erythrocyte distribution width (RBC) [Ratio] 18.8 % 11.0-15.0 [facility] Estimated glomerular filtrat ion rate (GFR) non- Americanon 09-18-2023 GFR/1.73 sq M.predicted among non-blacks MDRD (S/P/Bld) [Vol rate/Area] 27 mL/min/{1.73_m2} >=60 [facility] Hematocrit Auto (Bld) [Volum e fraction]on 09-18-2023 Hematocrit (Bld) [Volume fraction] 35.0 % 42.0-54.0 [facility] Hemoglobin [Mass/volume] in Bloodon 09-18-2023 Hemoglobin (Bld) [Mass/Vol] 10.3 g/dL 14.0-18.0 [facility] INR in Platelet poor plasma by Coagulation assayon 09-18-2023 INR Coag (PPP) [Relative time] 1.08 {INR} [facility] Comment on above: DESIRED INR:2.0-3.0 CONDITIONS NOT LISTED BELOW2.5-3.5 FOR PROSTHETIC HEART VALVE REPLACEMENT2.5-3.5 RECURRENT THROMBOSIS Laboratory - Chemistry and C hemistry - challengeon 09-18-2023 Calcium [Mass/Vol] 8.9 mg/dL 8.5-10.1 [facility] Chloride [Moles/Vol] 97 mmol/L 98-107 [facility] CO2 [Moles/Vol] 28.2 mmol/L 21.0-32.0 [facility] Creatinine [Mass/Vol] 2.47 mg/dL 0.70-1.30 [facility] GFR/1.73 sq M.predicted MDRD (S/P/Bld) [Vol rate/Area] 33 mL/min/{1.73_m2} >=60 [facility] Glucose [Mass/Vol] 200 mg/dL 74-106 [facility] Potassium [Moles/Vol] 3.7 mmol/L 3.5-5.1 [facility] Sodium [Moles/Vol] 137 mmol/L 136-145 [facility] Urea nitrogen [Mass/Vol] 23.0 mg/dL 7.0-18.0 [facility] Urea nitrogen/Creatinine [Mass ratio] 9.3 mg/mg [facility] Laboratory - Hematology and Cell countson 09-18-2023 Immature granulocytes/100 WBC (Bld) 0.6 % 0.0-0.5 [facility] Leukocytes [#/volume] correc jorge for nucleated erythrocytes in Blood by Automated counon 09-18-2023 WBC corrected for nucl RBC Auto (Bld) [#/Vol] 12.4 10 3/uL 4.0-11.0 [facility] Lymphocytes Auto (Bld) [#/Vo l]on 09-18-2023 Lymphocytes (Bld) [#/Vol] 2.4 10 3/uL 1.2-3.8 [facility] Lymphocytes/100 WBC Auto (Bl d)on 09-18-2023 Lymphocytes/100 WBC (Bld) 19.6 % 20.5-60.0 [facility] MCH Auto (RBC) [Entitic mass ]on 09-18-2023 MCH (RBC) [Entitic mass] 22.2 pg 25.9-34.0 [facility] MCHC Auto (RBC) [Mass/Vol]on 09-18-2023 MCHC (RBC) [Mass/Vol] 29.4 g/dL 29.9-35.2 [facility] MCV Auto (RBC) [Entitic vol] on 09-18-2023 MCV (RBC) [Entitic vol] 75.3 fL 80.0-94.0 [facility] Monocytes Auto (Bld) [#/Vol] on 09-18-2023 Monocytes (Bld) [#/Vol] 1.2 10 3/uL 0.3-0.8 [facility] Monocytes/100 WBC Auto (Bld) on 09-18-2023 Monocytes/100 WBC (Bld) 10.0 % 1.7-12.0 [facility] Neutrophils Auto (Bld) [#/Vo l]on 09-18-2023 Neutrophils (Bld) [#/Vol] 8.2 10 3/uL 1.4-6.5 [facility] Neutrophils/100 WBC Auto (Bl d)on 09-18-2023 Neutrophils/100 WBC (Bld) 66.6 % 43.0-75.0 [facility] No Panel Informationon 09-17 Eosinophils # (Auto) 0.3 10 3/uL 0.0-0.7 [facility] Immature Granulocyte # (Auto) 0.07 10 3/uL 0.00-0.03 [facility] Platelet mean volume Auto (B ld) [Entitic vol]on 09-18-2023 Platelet mean volume (Bld) [Entitic vol] 10.9 fL 9.5-13.5 [facility] Platelets Auto (Bld) [#/Vol] on 09-18-2023 Platelets (Bld) [#/Vol] 300 10 3/uL 150-450 [facility] Prothrombin time (PT)on 09-03 PT Coag (PPP) [Time] 11.4 s 9.0-11.6 [facility] RBC Auto (Bld) [#/Vol]on RBC (Bld) [#/Vol] 4.65 10 6/uL 4.70-6.10 [facility] Serum or plasma anion gap de terminationon 09-18-2023 Anion gap [Moles/Vol] 15.5 [facility] - Microbiology an d Antimicrobial susceptibilityOrdered By: Jenaro Lynch on 08-10-2023 Microscopic observation Gram stain Nom (Unsp spec) [facility] No Panel Informationon 08-09 Fungal Smear Result [facility] Miscellaneous Test Comment See comment [facility] Comment on above: Specimen Source: JONO TRT - Foot Right - Foot Rt - [id number] No Panel InformationOrdered By: Jenaro Lynch on 08-10-2023 Acid Fast Smear [facility] AFB Specimen Processing [facility] Tissue Culture [facility] Basophils Auto (Bld) [#/Vol] on 08-07-2023 Basophils (Bld) [#/Vol] 0.1 10 3/uL 0.0-0.1 [facility] Basophils/100 WBC Auto (Bld) on 08-07-2023 Basophils/100 WBC (Bld) 0.7 % 0.2-2.0 [facility] Eosinophils/100 WBC Auto (Bl d)on 08-07-2023 Eosinophils/100 WBC (Bld) 3.9 % 0.9-7.0 [facility] Erythrocyte distribution wid th Auto (RBC) [Ratio]on 08-07-2023 Erythrocyte distribution width (RBC) [Ratio] 16.9 % 11.0-15.0 [facility] Estimated glomerular filtrat ion rate (GFR) non- Americanon 08-07-2023 GFR/1.73 sq M.predicted among non-blacks MDRD (S/P/Bld) [Vol rate/Area] 42 mL/min/{1.73_m2} >=60 [facility] Globulin Calc (S) [Mass/Vol] on 08-07-2023 Globulin (S) [Mass/Vol] 4.0 g/dL [facility] Hematocrit Auto (Bld) [Volum e fraction]on 08-07-2023 Hematocrit (Bld) [Volume fraction] 31.5 % 42.0-54.0 [facility] Hemoglobin [Mass/volume] in Bloodon 08-07-2023 Hemoglobin (Bld) [Mass/Vol] 9.4 g/dL 14.0-18.0 [facility] Laboratory - Chemistry and C hemistry - challengeon 08-07-2023 Albumin [Mass/Vol] 2.1 g/dL 3.4-5.0 [facility] ALP [Catalytic activity/Vol] 144 U/L 46-116 [facility] ALT [Catalytic activity/Vol] 21 U/L 16-63 [facility] AST [Catalytic activity/Vol] 25 U/L 15-37 [facility] Bilirubin [Mass/Vol] 0.4 mg/dL 0.2-1.0 [facility] Calcium [Mass/Vol] 8.1 mg/dL 8.5-10.1 [facility] Chloride [Moles/Vol] 102 mmol/L 98-107 [facility] CO2 [Moles/Vol] 24.7 mmol/L 21.0-32.0 [facility] Creatinine [Mass/Vol] 1.70 mg/dL 0.70-1.30 [facility] GFR/1.73 sq M.predicted MDRD (S/P/Bld) [Vol rate/Area] 50 mL/min/{1.73_m2} >=60 [facility] Glucose [Mass/Vol] 188 mg/dL 74-106 [facility] Potassium [Moles/Vol] 4.6 mmol/L 3.5-5.1 [facility] Protein [Mass/Vol] 6.1 g/dL 6.4-8.2 [facility] Sodium [Moles/Vol] 135 mmol/L 136-145 [facility] Urea nitrogen [Mass/Vol] 33.0 mg/dL 7.0-18.0 [facility] Urea nitrogen/Creatinine [Mass ratio] 19.4 mg/mg [facility] Laboratory - Hematology and Cell countson 08-07-2023 Immature granulocytes/100 WBC (Bld) 0.7 % 0.0-0.5 [facility] Leukocytes [#/volume] correc jorge for nucleated erythrocytes in Blood by Automated counon 08-07-2023 WBC corrected for nucl RBC Auto (Bld) [#/Vol] 12.0 10 3/uL 4.0-11.0 [facility] Lymphocytes Auto (Bld) [#/Vo l]on 08-07-2023 Lymphocytes (Bld) [#/Vol] 1.5 10 3/uL 1.2-3.8 [facility] Lymphocytes/100 WBC Auto (Bl d)on 08-07-2023 Lymphocytes/100 WBC (Bld) 12.4 % 20.5-60.0 [facility] MCH Auto (RBC) [Entitic mass ]on 08-07-2023 MCH (RBC) [Entitic mass] 22.5 pg 25.9-34.0 [facility] MCHC Auto (RBC) [Mass/Vol]on 08-07-2023 MCHC (RBC) [Mass/Vol] 29.8 g/dL 29.9-35.2 [facility] MCV Auto (RBC) [Entitic vol] on 08-07-2023 MCV (RBC) [Entitic vol] 75.4 fL 80.0-94.0 [facility] Monocytes Auto (Bld) [#/Vol] on 08-07-2023 Monocytes (Bld) [#/Vol] 1.2 10 3/uL 0.3-0.8 [facility] Monocytes/100 WBC Auto (Bld) on 08-07-2023 Monocytes/100 WBC (Bld) 10.1 % 1.7-12.0 [facility] Neutrophils Auto (Bld) [#/Vo l]on 08-07-2023 Neutrophils (Bld) [#/Vol] 8.7 10 3/uL 1.4-6.5 [facility] Neutrophils/100 WBC Auto (Bl d)on 08-07-2023 Neutrophils/100 WBC (Bld) 72.2 % 43.0-75.0 [facility] No Panel Informationon 08-06 Eosinophils # (Auto) 0.5 10 3/uL 0.0-0.7 [facility] Immature Granulocyte # (Auto) 0.09 10 3/uL 0.00-0.03 [facility] Platelet mean volume Auto (B ld) [Entitic vol]on 08-07-2023 Platelet mean volume (Bld) [Entitic vol] 11.7 fL 9.5-13.5 [facility] Platelets Auto (Bld) [#/Vol] on 08-07-2023 Platelets (Bld) [#/Vol] 222 10 3/uL 150-450 [facility] RBC Auto (Bld) [#/Vol]on RBC (Bld) [#/Vol] 4.18 10 6/uL 4.70-6.10 [facility] Serum or plasma albumin/glob ulin mass ratioon 08-07-2023 Albumin/Globulin [Mass ratio] 0.5 {ratio} [facility] Serum or plasma anion gap de terminationon 08-07-2023 Anion gap [Moles/Vol] 12.9 mmol/L Fi [facility] Basophils Auto (Bld) [#/Vol] on 08-06-2023 Basophils (Bld) [#/Vol] 0.1 10 3/uL 0.0-0.1 [facility] Basophils/100 WBC Auto (Bld) on 08-06-2023 Basophils/100 WBC (Bld) 0.7 % 0.2-2.0 [facility] Eosinophils/100 WBC Auto (Bl d)on 08-06-2023 Eosinophils/100 WBC (Bld) 3.3 % 0.9-7.0 [facility] Erythrocyte distribution wid th Auto (RBC) [Ratio]on 08-06-2023 Erythrocyte distribution width (RBC) [Ratio] 17.0 % 11.0-15.0 [facility] Estimated glomerular filtrat ion rate (GFR) non- Americanon 08-06-2023 GFR/1.73 sq M.predicted among non-blacks MDRD (S/P/Bld) [Vol rate/Area] 36 mL/min/{1.73_m2} >=60 [facility] Globulin Calc (S) [Mass/Vol] on 08-06-2023 Globulin (S) [Mass/Vol] 4.0 g/dL [facility] Hematocrit Auto (Bld) [Volum e fraction]on 08-06-2023 Hematocrit (Bld) [Volume fraction] 30.1 % 42.0-54.0 [facility] Hemoglobin [Mass/volume] in Bloodon 08-06-2023 Hemoglobin (Bld) [Mass/Vol] 8.8 g/dL 14.0-18.0 [facility] Laboratory - Chemistry and C hemistry - challengeon 08-06-2023 Albumin [Mass/Vol] 2.0 g/dL 3.4-5.0 [facility] ALP [Catalytic activity/Vol] 127 U/L 46-116 [facility] ALT [Catalytic activity/Vol] 14 U/L 16-63 [facility] AST [Catalytic activity/Vol] 16 U/L 15-37 [facility] Bilirubin [Mass/Vol] 0.4 mg/dL 0.2-1.0 [facility] Calcium [Mass/Vol] 7.9 mg/dL 8.5-10.1 [facility] Chloride [Moles/Vol] 99 mmol/L 98-107 [facility] CO2 [Moles/Vol] 25.0 mmol/L 21.0-32.0 [facility] Creatinine [Mass/Vol] 1.95 mg/dL 0.70-1.30 [facility] GFR/1.73 sq M.predicted MDRD (S/P/Bld) [Vol rate/Area] 43 mL/min/{1.73_m2} >=60 [facility] Glucose [Mass/Vol] 297 mg/dL 74-106 [facility] Potassium [Moles/Vol] 4.4 mmol/L 3.5-5.1 [facility] Protein [Mass/Vol] 6.0 g/dL 6.4-8.2 [facility] Sodium [Moles/Vol] 133 mmol/L 136-145 [facility] Urea nitrogen [Mass/Vol] 28.0 mg/dL 7.0-18.0 [facility] Urea nitrogen/Creatinine [Mass ratio] 14.4 mg/mg [facility] Laboratory - Hematology and Cell countson 08-06-2023 Immature granulocytes/100 WBC (Bld) 0.4 % 0.0-0.5 [facility] Leukocytes [#/volume] correc jorge for nucleated erythrocytes in Blood by Automated counon 08-06-2023 WBC corrected for nucl RBC Auto (Bld) [#/Vol] 10.1 10 3/uL 4.0-11.0 [facility] Lymphocytes Auto (Bld) [#/Vo l]on 08-06-2023 Lymphocytes (Bld) [#/Vol] 1.5 10 3/uL 1.2-3.8 [facility] Lymphocytes/100 WBC Auto (Bl d)on 08-06-2023 Lymphocytes/100 WBC (Bld) 14.4 % 20.5-60.0 [facility] MCH Auto (RBC) [Entitic mass ]on 08-06-2023 MCH (RBC) [Entitic mass] 22.5 pg 25.9-34.0 [facility] MCHC Auto (RBC) [Mass/Vol]on 08-06-2023 MCHC (RBC) [Mass/Vol] 29.2 g/dL 29.9-35.2 [facility] MCV Auto (RBC) [Entitic vol] on 08-06-2023 MCV (RBC) [Entitic vol] 77.0 fL 80.0-94.0 [facility] Monocytes Auto (Bld) [#/Vol] on 08-06-2023 Monocytes (Bld) [#/Vol] 1.1 10 3/uL 0.3-0.8 [facility] Monocytes/100 WBC Auto (Bld) on 08-06-2023 Monocytes/100 WBC (Bld) 10.4 % 1.7-12.0 [facility] Neutrophils Auto (Bld) [#/Vo l]on 08-06-2023 Neutrophils (Bld) [#/Vol] 7.2 10 3/uL 1.4-6.5 [facility] Neutrophils/100 WBC Auto (Bl d)on 08-06-2023 Neutrophils/100 WBC (Bld) 70.8 % 43.0-75.0 [facility] No Panel Informationon 08-05 Vancomycin Level Trough 13.6 ug/mL 5.0-20.0 [facility] Eosinophils # (Auto) 0.3 10 3/uL 0.0-0.7 [facility] Immature Granulocyte # (Auto) 0.04 10 3/uL 0.00-0.03 [facility] Platelet mean volume Auto (B ld) [Entitic vol]on 08-06-2023 Platelet mean volume (Bld) [Entitic vol] 12.2 fL 9.5-13.5 [facility] Platelets Auto (Bld) [#/Vol] on 08-06-2023 Platelets (Bld) [#/Vol] 190 10 3/uL 150-450 [facility] RBC Auto (Bld) [#/Vol]on RBC (Bld) [#/Vol] 3.91 10 6/uL 4.70-6.10 [facility] Serum or plasma albumin/glob ulin mass ratioon 08-06-2023 Albumin/Globulin [Mass ratio] 0.5 {ratio} [facility] Serum or plasma anion gap de terminationon 08-06-2023 Anion gap [Moles/Vol] 13.4 [facility] Automated epithelial cells c ount in urine sediment (number/area)on 08-05-2023 Epithelial cells Auto (Urine sed) [#/Area] RARE #/LPF NONE/RARE [facility] Automated leukocytes count i n urine sediment (number/area)on 08-05-2023 WBC Auto (Urine sed) [#/Area] NONE SEEN #/HPF 0-2 [facility] Automated urine specific gra vity by refractometryon 08-05-2023 Specific gravity Refractometry automated (U) [Rel density] <=1.005 1.005-1.02 5 [facility] Basophils Auto (Bld) [#/Vol] on 08-05-2023 Basophils (Bld) [#/Vol] 0.1 10 3/uL 0.0-0.1 [facility] Basophils/100 WBC Auto (Bld) on 08-05-2023 Basophils/100 WBC (Bld) 0.7 % 0.2-2.0 [facility] Bilirubin Auto test strip (U ) [Mass/Vol]on 08-05-2023 Bilirubin (U) [Mass/Vol] Negative NEGATIVE [facility] Casts typing in urine sedime nt by light microscopyon 08-05-2023 Casts LM Nom (Urine sed) NONE SEEN #/LPF NONE SEEN [facility] Color Auto (U)on 08-05-2023 Color (U) LT. YELLOW YELLOW [facility] Eosinophils/100 WBC Auto (Bl d)on 08-05-2023 Eosinophils/100 WBC (Bld) 2.5 % 0.9-7.0 [facility] Erythrocyte distribution wid th Auto (RBC) [Ratio]on 08-05-2023 Erythrocyte distribution width (RBC) [Ratio] 16.8 % 11.0-15.0 [facility] Estimated glomerular filtrat ion rate (GFR) non- Americanon 08-05-2023 GFR/1.73 sq M.predicted among non-blacks MDRD (S/P/Bld) [Vol rate/Area] 42 mL/min/{1.73_m2} >=60 [facility] Globulin Calc (S) [Mass/Vol] on 08-05-2023 Globulin (S) [Mass/Vol] 4.1 g/dL [facility] Glucose mean value [Mass/vol ume] in Blood Estimated from glycated hemoglobinon 08-05-2023 Average glucose Estimated from glycated hemoglobin (Bld) [Mass/Vol] 214 mg/dL [facility] Hematocrit Auto (Bld) [Volum e fraction]on 08-05-2023 Hematocrit (Bld) [Volume fraction] 31.8 % 42.0-54.0 [facility] Hemoglobin [Mass/volume] in Bloodon 08-05-2023 Hemoglobin (Bld) [Mass/Vol] 9.4 g/dL 14.0-18.0 [facility] Ketones Auto test strip (U) [Mass/Vol]on 08-05-2023 Ketones (U) [Mass/Vol] Negative NEGATIVE [facility] Laboratory - Chemistry and C hemistry - challengeon 08-05-2023 Albumin [Mass/Vol] 2.3 g/dL 3.4-5.0 [facility] ALP [Catalytic activity/Vol] 111 U/L 46-116 [facility] ALT [Catalytic activity/Vol] 11 U/L 16-63 [facility] AST [Catalytic activity/Vol] 11 U/L 15-37 [facility] Bilirubin [Mass/Vol] 0.5 mg/dL 0.2-1.0 [facility] Calcium [Mass/Vol] 8.1 mg/dL 8.5-10.1 [facility] Chloride [Moles/Vol] 101 mmol/L 98-107 [facility] CO2 [Moles/Vol] 25.6 mmol/L 21.0-32.0 [facility] Creatinine [Mass/Vol] 1.68 mg/dL 0.70-1.30 [facility] GFR/1.73 sq M.predicted MDRD (S/P/Bld) [Vol rate/Area] 51 mL/min/{1.73_m2} >=60 [facility] Glucose [Mass/Vol] 111 mg/dL 74-106 [facility] Potassium [Moles/Vol] 3.7 mmol/L 3.5-5.1 [facility] Protein [Mass/Vol] 6.4 g/dL 6.4-8.2 [facility] Sodium [Moles/Vol] 138 mmol/L 136-145 [facility] Urea nitrogen [Mass/Vol] 17.0 mg/dL 7.0-18.0 [facility] Urea nitrogen/Creatinine [Mass ratio] 10.1 mg/mg [facility] Laboratory - Hematology and Cell countson 08-05-2023 HbA1c (Bld) [Mass fraction] 9.1 % 4.5-6.2 [facility] Comment on above: ADA RECOMMENDED LIMI T 4.0 - 6.0ADA THERAPEUTIC TARGET < 7.0ACTION SUGGESTED> 7.0 Immature granulocytes/100 WBC (Bld) 0.4 % 0.0-0.5 [facility] Laboratory - Microbiology an d Antimicrobial susceptibilityOrdered By: Jenaro Lynch on 08-05-2023 Microscopic observation Gram stain Nom (Unsp spec) [facility] Leukocytes [#/volume] correc jorge for nucleated erythrocytes in Blood by Automated counon 08-05-2023 WBC corrected for nucl RBC Auto (Bld) [#/Vol] 12.3 10 3/uL 4.0-11.0 [facility] Lymphocytes Auto (Bld) [#/Vo l]on 08-05-2023 Lymphocytes (Bld) [#/Vol] 1.5 10 3/uL 1.2-3.8 [facility] Lymphocytes/100 WBC Auto (Bl d)on 08-05-2023 Lymphocytes/100 WBC (Bld) 11.8 % 20.5-60.0 [facility] MCH Auto (RBC) [Entitic mass ]on 08-05-2023 MCH (RBC) [Entitic mass] 22.4 pg 25.9-34.0 [facility] MCHC Auto (RBC) [Mass/Vol]on 08-05-2023 MCHC (RBC) [Mass/Vol] 29.6 g/dL 29.9-35.2 [facility] MCV Auto (RBC) [Entitic vol] on 08-05-2023 MCV (RBC) [Entitic vol] 75.9 fL 80.0-94.0 [facility] Monocytes Auto (Bld) [#/Vol] on 08-05-2023 Monocytes (Bld) [#/Vol] 1.3 10 3/uL 0.3-0.8 [facility] Monocytes/100 WBC Auto (Bld) on 08-05-2023 Monocytes/100 WBC (Bld) 10.7 % 1.7-12.0 [facility] Mucus LM Ql (Urine sed)on Mucus Ql (Urine sed) NONE SEEN NONE SEEN [facility] Neutrophils Auto (Bld) [#/Vo l]on 08-05-2023 Neutrophils (Bld) [#/Vol] 9.1 10 3/uL 1.4-6.5 [facility] Neutrophils/100 WBC Auto (Bl d)on 08-05-2023 Neutrophils/100 WBC (Bld) 73.9 % 43.0-75.0 [facility] No Panel Informationon 08-04 Eosinophils # (Auto) 0.3 10 3/uL 0.0-0.7 [facility] Immature Granulocyte # (Auto) 0.05 10 3/uL 0.00-0.03 [facility] Platelet mean volume Auto (B ld) [Entitic vol]on 08-05-2023 Platelet mean volume (Bld) [Entitic vol] 11.2 fL 9.5-13.5 [facility] Platelets Auto (Bld) [#/Vol] on 08-05-2023 Platelets (Bld) [#/Vol] 184 10 3/uL 150-450 [facility] Protein Auto test strip (U) [Mass/Vol]on 08-05-2023 Protein (U) [Mass/Vol] Negative NEG/TRACE [facility] RBC Auto (Bld) [#/Vol]on RBC (Bld) [#/Vol] 4.19 10 6/uL 4.70-6.10 [facility] Serum or plasma albumin/glob ulin mass ratioon 08-05-2023 Albumin/Globulin [Mass ratio] 0.6 {ratio} [facility] Serum or plasma anion gap de terminationon 08-05-2023 Anion gap [Moles/Vol] 15.1 mmol/L [facility] Specific gravity Auto test s trip (U) [Rel density]on 08-05-2023 Specific gravity (U) [Rel density] CLEAR CLEAR [facility] Urine bacteria detection by automated methodon 08-05-2023 Bacteria Auto Ql (U) TRACE #/HPF NONE SEEN [facility] Urine glucose measurement by test strip (mass/volume)on 08-05-2023 Glucose Test strip (U) [Mass/Vol] >=1000 mg/dL NEGATIVE [facility] Urine hemoglobin detection b y automated test stripon 08-05-2023 Hemoglobin Auto test strip Ql (U) Negative NEGATIVE [facility] Urine nitrite detection by a utomated test stripon 08-05-2023 Nitrite Auto test strip Ql (U) Negative NEGATIVE [facility] Urine sediment crystal ident ification by light microscopyon 08-05-2023 Crystals LM Nom (Urine sed) None Seen #/HPF None Seen [facility] Urine sediment leukocyte cou nt by microscopy (number/high power field)on 08-05-2023 WBC LM.HPF (Urine sed) [#/Area] NONE SEEN #/HPF NONE SEEN [facility] Urobilinogen Auto test strip (U) [Mass/Vol]on 08-05-2023 Urobilinogen Qn (U) 0.2 {Brendan'U}/dL 0.2-1.0 [facility] pH Auto test strip (U)on pH (U) 6.0 [pH] 5.0-9.0 [facility] Basophils Auto (Bld) [#/Vol] on 08-04-2023 Basophils (Bld) [#/Vol] 0.1 10 3/uL 0.0-0.1 [facility] Basophils/100 WBC Auto (Bld) on 08-04-2023 Basophils/100 WBC (Bld) 0.8 % 0.2-2.0 [facility] Eosinophils/100 WBC Auto (Bl d)on 08-04-2023 Eosinophils/100 WBC (Bld) 2.8 % 0.9-7.0 [facility] Erythrocyte distribution wid th Auto (RBC) [Ratio]on 08-04-2023 Erythrocyte distribution width (RBC) [Ratio] 16.9 % 11.0-15.0 [facility] Estimated glomerular filtrat ion rate (GFR) non- Americanon 08-04-2023 GFR/1.73 sq M.predicted among non-blacks MDRD (S/P/Bld) [Vol rate/Area] 33 mL/min/{1.73_m2} >=60 [facility] Globulin Calc (S) [Mass/Vol] on 08-04-2023 Globulin (S) [Mass/Vol] 4.4 g/dL [facility] Hematocrit Auto (Bld) [Volum e fraction]on 08-04-2023 Hematocrit (Bld) [Volume fraction] 32.6 % 42.0-54.0 [facility] Hemoglobin [Mass/volume] in Bloodon 08-04-2023 Hemoglobin (Bld) [Mass/Vol] 9.6 g/dL 14.0-18.0 [facility] INR in Platelet poor plasma by Coagulation assayon 08-04-2023 INR Coag (PPP) [Relative time] 1.05 {INR} [facility] Comment on above: DESIRED INR:2.0-3.0 CONDITIONS NOT LISTED BELOW2.5-3.5 FOR PROSTHETIC HEART VALVE REPLACEMENT2.5-3.5 RECURRENT THROMBOSIS Laboratory - Chemistry and C hemistry - challengeon 08-04-2023 Albumin [Mass/Vol] 2.4 g/dL 3.4-5.0 [facility] ALP [Catalytic activity/Vol] 109 U/L 46-116 [facility] ALT [Catalytic activity/Vol] 9 U/L 16-63 [facility] AST [Catalytic activity/Vol] U/L 15-37 [facility] Bilirubin [Mass/Vol] 0.4 mg/dL 0.2-1.0 [facility] Calcium [Mass/Vol] 8.0 mg/dL 8.5-10.1 [facility] Chloride [Moles/Vol] 96 mmol/L 98-107 [facility] CO2 [Moles/Vol] 29.2 mmol/L 21.0-32.0 [facility] Creatinine [Mass/Vol] 2.06 mg/dL 0.70-1.30 [facility] GFR/1.73 sq M.predicted MDRD (S/P/Bld) [Vol rate/Area] 40 mL/min/{1.73_m2} >=60 [facility] Glucose [Mass/Vol] 329 mg/dL 74-106 [facility] Potassium [Moles/Vol] 3.5 mmol/L 3.5-5.1 [facility] Protein [Mass/Vol] 6.8 g/dL 6.4-8.2 [facility] Sodium [Moles/Vol] 132 mmol/L 136-145 [facility] Urea nitrogen [Mass/Vol] 20.0 mg/dL 7.0-18.0 [facility] Urea nitrogen/Creatinine [Mass ratio] 9.7 mg/mg [facility] Laboratory - Hematology and Cell countson 08-04-2023 ESR (Bld) [Velocity] 89 mm/h <=20 [facility] Immature granulocytes/100 WBC (Bld) 0.3 % 0.0-0.5 [facility] Laboratory - Microbiology an d Antimicrobial susceptibilityOrdered By: Jenaro Lynch on 08-04-2023 Microscopic observation Gram stain Nom (Unsp spec) [facility] Leukocytes [#/volume] correc jorge for nucleated erythrocytes in Blood by Automated counon 08-04-2023 WBC corrected for nucl RBC Auto (Bld) [#/Vol] 11.6 10 3/uL 4.0-11.0 [facility] Lymphocytes Auto (Bld) [#/Vo l]on 08-04-2023 Lymphocytes (Bld) [#/Vol] 1.7 10 3/uL 1.2-3.8 [facility] Lymphocytes/100 WBC Auto (Bl d)on 08-04-2023 Lymphocytes/100 WBC (Bld) 14.9 % 20.5-60.0 [facility] MCH Auto (RBC) [Entitic mass ]on 08-04-2023 MCH (RBC) [Entitic mass] 22.3 pg 25.9-34.0 [facility] MCHC Auto (RBC) [Mass/Vol]on 08-04-2023 MCHC (RBC) [Mass/Vol] 29.4 g/dL 29.9-35.2 [facility] MCV Auto (RBC) [Entitic vol] on 08-04-2023 MCV (RBC) [Entitic vol] 75.8 fL 80.0-94.0 [facility] Monocytes Auto (Bld) [#/Vol] on 08-04-2023 Monocytes (Bld) [#/Vol] 1.2 10 3/uL 0.3-0.8 [facility] Monocytes/100 WBC Auto (Bld) on 08-04-2023 Monocytes/100 WBC (Bld) 10.4 % 1.7-12.0 [facility] Neutrophils Auto (Bld) [#/Vo l]on 08-04-2023 Neutrophils (Bld) [#/Vol] 8.2 10 3/uL 1.4-6.5 [facility] Neutrophils/100 WBC Auto (Bl d)on 08-04-2023 Neutrophils/100 WBC (Bld) 70.8 % 43.0-75.0 [facility] No Panel InformationOrdered By: Jenaro Lynch on 08-04-2023 Blood Culture 2 [facility] Blood Culture 1 [facility] Wound Culture [facility] No Panel Informationon 08-03 Aerobic & Anaerobic Susceptibility [facility] Miscellaneous Test Comment See comment [facility] Comment on above: Specimen Source: JONO T - Foot - Foot - 603.950 C-Reactive Protein, Quantitative 11.62 mg/dL <=0.50 [facility] Eosinophils # (Auto) 0.3 10 3/uL 0.0-0.7 [facility] Immature Granulocyte # (Auto) 0.04 10 3/uL 0.00-0.03 [facility] Platelet mean volume Auto (B ld) [Entitic vol]on 08-04-2023 Platelet mean volume (Bld) [Entitic vol] 11.5 fL 9.5-13.5 [facility] Platelets Auto (Bld) [#/Vol] on 08-04-2023 Platelets (Bld) [#/Vol] 206 10 3/uL 150-450 [facility] Prothrombin time (PT)on PT Coag (PPP) [Time] 11.1 s 9.0-11.6 [facility] RBC Auto (Bld) [#/Vol]on RBC (Bld) [#/Vol] 4.30 10 6/uL 4.70-6.10 [facility] Serum or plasma albumin/glob ulin mass ratioon 08-04-2023 Albumin/Globulin [Mass ratio] 0.5 {ratio} [facility] Serum or plasma anion gap de terminationon 08-04-2023 Anion gap [Moles/Vol] 10.3 [facility] Serum procalcitonin measurem enton 08-04-2023 Procalcitonin [Mass/Vol] 0.10 ng/mL 0.00-0.50 [facility] Basophils Auto (Bld) [#/Vol] on 08-03-2023 Basophils (Bld) [#/Vol] 0.1 10 3/uL 0.0-0.1 [facility] Basophils/100 WBC Auto (Bld) on 08-03-2023 Basophils/100 WBC (Bld) 0.7 % 0.2-2.0 [facility] Eosinophils/100 WBC Auto (Bl d)on 08-03-2023 Eosinophils/100 WBC (Bld) 1.8 % 0.9-7.0 [facility] Erythrocyte distribution wid th Auto (RBC) [Ratio]on 08-03-2023 Erythrocyte distribution width (RBC) [Ratio] 17.0 % 11.0-15.0 [facility] Estimated glomerular filtrat ion rate (GFR) non- Americanon 08-03-2023 GFR/1.73 sq M.predicted among non-blacks MDRD (S/P/Bld) [Vol rate/Area] 27 mL/min/{1.73_m2} >=60 [facility] Globulin Calc (S) [Mass/Vol] on 08-03-2023 Globulin (S) [Mass/Vol] 5.0 g/dL [facility] Hematocrit Auto (Bld) [Volum e fraction]on 08-03-2023 Hematocrit (Bld) [Volume fraction] 38.9 % 42.0-54.0 [facility] Hemoglobin [Mass/volume] in Bloodon 08-03-2023 Hemoglobin (Bld) [Mass/Vol] 11.8 g/dL 14.0-18.0 [facility] Laboratory - Chemistry and C hemistry - challengeon 08-03-2023 Lactate [Moles/Vol] 1.6 mmol/L 0.4-2.0 [facility] Albumin [Mass/Vol] 3.3 g/dL 3.4-5.0 [facility] ALP [Catalytic activity/Vol] 134 U/L 46-116 [facility] ALT [Catalytic activity/Vol] 13 U/L 16-63 [facility] AST [Catalytic activity/Vol] U/L 15-37 [facility] Bilirubin [Mass/Vol] 0.6 mg/dL 0.2-1.0 [facility] Calcium [Mass/Vol] 9.3 mg/dL 8.5-10.1 [facility] Chloride [Moles/Vol] 92 mmol/L 98-107 [facility] CO2 [Moles/Vol] 31.0 mmol/L 21.0-32.0 [facility] Creatinine [Mass/Vol] 2.45 mg/dL 0.70-1.30 [facility] GFR/1.73 sq M.predicted MDRD (S/P/Bld) [Vol rate/Area] 33 mL/min/{1.73_m2} >=60 [facility] Glucose [Mass/Vol] 310 mg/dL 74-106 [facility] Potassium [Moles/Vol] 3.7 mmol/L 3.5-5.1 [facility] Protein [Mass/Vol] 8.3 g/dL 6.4-8.2 [facility] Sodium [Moles/Vol] 133 mmol/L 136-145 [facility] Urea nitrogen [Mass/Vol] 23.0 mg/dL 7.0-18.0 [facility] Urea nitrogen/Creatinine [Mass ratio] 9.4 mg/mg [facility] Laboratory - Hematology and Cell countson 08-03-2023 ESR (Bld) [Velocity] 118 mm/h <=20 [facility] Immature granulocytes/100 WBC (Bld) 0.4 % 0.0-0.5 [facility] Leukocytes [#/volume] correc jorge for nucleated erythrocytes in Blood by Automated counon 08-03-2023 WBC corrected for nucl RBC Auto (Bld) [#/Vol] 14.6 10 3/uL 4.0-11.0 [facility] Lymphocytes Auto (Bld) [#/Vo l]on 08-03-2023 Lymphocytes (Bld) [#/Vol] 2.1 10 3/uL 1.2-3.8 [facility] Lymphocytes/100 WBC Auto (Bl d)on 08-03-2023 Lymphocytes/100 WBC (Bld) 14.3 % 20.5-60.0 [facility] MCH Auto (RBC) [Entitic mass ]on 08-03-2023 MCH (RBC) [Entitic mass] 22.6 pg 25.9-34.0 [facility] MCHC Auto (RBC) [Mass/Vol]on 08-03-2023 MCHC (RBC) [Mass/Vol] 30.3 g/dL 29.9-35.2 [facility] MCV Auto (RBC) [Entitic vol] on 08-03-2023 MCV (RBC) [Entitic vol] 74.4 fL 80.0-94.0 [facility] Monocytes Auto (Bld) [#/Vol] on 08-03-2023 Monocytes (Bld) [#/Vol] 1.4 10 3/uL 0.3-0.8 [facility] Monocytes/100 WBC Auto (Bld) on 08-03-2023 Monocytes/100 WBC (Bld) 9.4 % 1.7-12.0 [facility] Neutrophils Auto (Bld) [#/Vo l]on 08-03-2023 Neutrophils (Bld) [#/Vol] 10.7 10 3/uL 1.4-6.5 [facility] Neutrophils/100 WBC Auto (Bl d)on 08-03-2023 Neutrophils/100 WBC (Bld) 73.4 % 43.0-75.0 [facility] No Panel Informationon C-Reactive Protein, Quantitative 14.63 mg/dL <=0.50 [facility] Eosinophils # (Auto) 0.3 10 3/uL 0.0-0.7 [facility] Immature Granulocyte # (Auto) 0.06 10 3/uL 0.00-0.03 [facility] Venous Blood Partial Pressure CO2 44.8 mm[Hg] 40.0-52.0 [facility] Venous Blood pH 7.432 7.330-7.43 0 [facility] No Panel InformationOrdered By: Jenaro Lynch on 08-03-2023 Blood Culture 2 [facility] Blood Culture 1 [facility] Platelet mean volume Auto (B ld) [Entitic vol]on 08-03-2023 Platelet mean volume (Bld) [Entitic vol] 11.4 fL 9.5-13.5 [facility] Platelets Auto (Bld) [#/Vol] on 08-03-2023 Platelets (Bld) [#/Vol] 252 10 3/uL 150-450 [facility] RBC Auto (Bld) [#/Vol]on RBC (Bld) [#/Vol] 5.23 10 6/uL 4.70-6.10 [facility] Serum or plasma albumin/glob ulin mass ratioon 08-03-2023 Albumin/Globulin [Mass ratio] 0.7 {ratio} [facility] Serum or plasma anion gap de terminationon 08-03-2023 Anion gap [Moles/Vol] 13.7 mmol/L [facility] US venous duplex LE [place] [address] Ultrasound Report Signed Patient: Solomon Feldman SR MR#: [id number] : 1965 Acct:[id number] Age/Sex: 57 / M ADM Date: 07/12/23 Loc: ER Room: Type: [facility] ER Attending Dr: Ordering Provider: aNncy Wilson MD Date of Service: 07/12/23 US/US [...] Howard Boss MD07/13/2023 11:56 AM Dictation Location: [id number] Tech: Nancy Pantoja Transcribed By: BOB 07/13/23 1156 Dictated By: Howard Boss MD 07/13/23 1156 Signed By: 07/13/23 1156 Normal [facility] US venous duplex UE LTon US venous duplex UE LT [facility] [place] [address] Ultrasound Report Signed Patient: Solomon Feldman SR MR#: [id number] : 1965 Acct:[id number] Age/Sex: 57 / M ADM Date: 07/12/23 Loc: ER Room: Type: [facility] ER Attending Dr: Ordering Provider: Nancy Wilson [...] Howard Boss MD07/13/2023 11:56 AM Dictation Location: [place] [address] Tech: Nancy Pantoja Transcribed By: BOB 07/13/23 1156 Dictated By: Howard Boss MD 07/13/23 1155 Signed By: 07/13/23 1156 Normal [facility] Activated partial thrombopla stin time (aPTT) in platelet poor plasma by coagulation aOrdered By: Nancy Wilson on 07-12-2023 aPTT Coag (PPP) [Time] 29.4 s 25.1-36.5 [facility] Comment on above: A hematocrit value g reater than 55% may lead to inaccurate results in coagulation testing. Patients having hematocrit values >55% require a special collection tube for coagulation studies. Please contact the laboratory at [phone] for redraw instructions. Alanine aminotransferase [En zymatic activity/volume] in Serum or PlasmaOrdered By: Nancy Wilson on 07-12-2023 ALT [Catalytic activity/Vol] 9 U/L 7-52 [facility] Albumin [Mass/volume] in Ser um or Plasma by Bromocresol green (BCG) dye binding methoOrdered By: Nancy Wilson on 07-12-2023 Albumin BCG dye [Mass/Vol] 3.9 g/dL 3.5-5.7 [facility] Alkaline phosphatase [Enzyma tic activity/volume] in Serum or PlasmaOrdered By: Nancy Wilson on 07-12-2023 ALP [Catalytic activity/Vol] 106 U/L 34-104 [facility] Aspartate aminotransferase [ Enzymatic activity/volume] in Serum or PlasmaOrdered By: Nancy Wilson on 07-12-2023 AST [Catalytic activity/Vol] 8 U/L 13-39 [facility] B-Type Natriuretic Peptideon 07-12-2023 Natriuretic peptide B (Bld) [Mass/Vol] 34.0 pg/mL Normal 5-100 [facility] Comment on above: Result Comment: PERF ORMED BY: [facility] [address] [place] [address] PATHOLOGIST ELECTRONICS ENGINEERING TECHNOLOGIST CLIFFORD LOBATO M.D. Performed By: #### B HOGSHEAD BUILDER, CMP, HS TROP, CK, PTT, CBC, PT ####[facility] [id number] [place] [id number] [facility] Basophils Auto (Bld) [#/Vol] Ordered By: Nancy Wilson on 07-12-2023 Basophils (Bld) [#/Vol] 0.1 10*3/uL 0.0-0.2 [facility] Basophils/100 WBC Auto (Bld) Ordered By: Nancy Wilson on 07-12-2023 Basophils/100 WBC (Bld) 1.1 % . [facility] Bilirubin.total [Mass/volume ] in Serum or PlasmaOrdered By: Nancy Wilson on 07-12-2023 Bilirubin [Mass/Vol] 0.4 mg/dL 0.3-1.0 [facility] Calcium [Mass/volume] in Ser um or PlasmaOrdered By: Nancy Wilson on 07-12-2023 Calcium [Mass/Vol] 8.5 mg/dL 8.6-10.3 [facility] Carbon dioxide, total [Moles /volume] in Serum or PlasmaOrdered By: Nancy Wilson on 07-12-2023 CO2 [Moles/Vol] 24.5 mmol/L 21.0-31.0 [facility] Chloride [Moles/volume] in S ilia or PlasmaOrdered By: Nancy Wilson on 07-12-2023 Chloride [Moles/Vol] 102 mmol/L 98-107 [facility] Complete Blood Count Auto Di ffon 07-12-2023 Basophils (Bld) [#/Vol] 0.1 10*3/uL Normal 0.0-0.2 [facility] Comment on above: Result Comment: PERF ORMED BY: [facility] [address] [facility] [address] PATHOLOGIST ELECTRONICS ENGINEERING TECHNOLOGIST CLIFFORD LOBATO M.D. Performed By: #### B HOGSHEAD BUILDER, CMP, HS TROP, CK, PTT, CBC, PT ####[address] Basophils/100 WBC (Bld) 1.1 % Normal . [facility] Comment on above: Performed By: #### B HOGSHEAD BUILDER, CMP, HS TROP, CK, PTT, CBC, PT ####[address] Eosinophils (Bld) [#/Vol] 0.3 10*3/uL Normal 0.0-0.45 [facility] Comment on above: Performed By: #### B HOGSHEAD BUILDER, CMP, HS TROP, CK, PTT, CBC, PT ####[address] Eosinophils/100 WBC (Bld) 3.3 % Normal . [facility] Comment on above: Performed By: #### B HOGSHEAD BUILDER, CMP, HS TROP, CK, PTT, CBC, PT ####[address] Erythrocyte distribution width (RBC) [Ratio] 17.1 % High 12.0-14.8 [facility] Comment on above: Performed By: #### B HOGSHEAD BUILDER, CMP, HS TROP, CK, PTT, CBC, PT ####[address] Hematocrit (Bld) [Volume fraction] 32.7 % Low 38.8-50.0 [facility] Comment on above: Performed By: #### B HOGSHEAD BUILDER, CMP, HS TROP, CK, PTT, CBC, PT ####[address] Hemoglobin (Bld) [Mass/Vol] 10.6 g/dL Low 13.0-17.0 [facility] Comment on above: Performed By: #### B HOGSHEAD BUILDER, CMP, HS TROP, CK, PTT, CBC, PT ####[address] Lymphocytes (Bld) [#/Vol] 1.9 10*3/uL Normal 1.00-4.8 [facility] Comment on above: Performed By: #### B HOGSHEAD BUILDER, CMP, HS TROP, CK, PTT, CBC, PT ####[address] Lymphocytes/100 WBC (Bld) 20.0 % Normal . [facility] Comment on above: Performed By: #### B HOGSHEAD BUILDER, CMP, HS TROP, CK, PTT, CBC, PT ####[address] MCH (RBC) [Entitic mass] 22.8 pg Low 27.5-35.2 [facility] Comment on above: Performed By: #### B HOGSHEAD BUILDER, CMP, HS TROP, CK, PTT, CBC, PT ####[address] MCV (RBC) [Entitic vol] 70.6 fL Low 83.5-101 [facility] Comment on above: Performed By: #### B HOGSHEAD BUILDER, CMP, HS TROP, CK, PTT, CBC, PT ####[address] Mean Corpuscular HGB Conc 32.4 g/dL Low 32.5-35.6 [facility] Comment on above: Performed By: #### B HOGSHEAD BUILDER, CMP, HS TROP, CK, PTT, CBC, PT ####[address] Monocytes (Bld) [#/Vol] 1.0 10*3/uL High 0.0-0.8 [facility] Comment on above: Performed By: #### B HOGSHEAD BUILDER, CMP, HS TROP, CK, PTT, CBC, PT ####[address] Monocytes/100 WBC (Bld) 18.12 % Normal 0.00-20.00 [facility] Comment on above: Performed By: #### B HOGSHEAD BUILDER, CMP, HS TROP, CK, PTT, CBC, PT ####[address] Monocytes/100 WBC (Bld) 10.2 % Normal . [facility] Comment on above: Performed By: #### B HOGSHEAD BUILDER, CMP, HS TROP, CK, PTT, CBC, PT ####[address] Neutrophils (Bld) [#/Vol] 6.2 10*3/uL Normal 1.8-7.7 [facility] Comment on above: Performed By: #### B HOGSHEAD BUILDER, CMP, HS TROP, CK, PTT, CBC, PT ####[address] Neutrophils/100 WBC (Bld) 65.4 % Normal . [facility] Comment on above: Performed By: #### B HOGSHEAD BUILDER, CMP, HS TROP, CK, PTT, CBC, PT ####[address] NRBC% 0.1 /100{WBC} Normal 0-0.5 [facility] Comment on above: Performed By: #### B HOGSHEAD BUILDER, CMP, HS TROP, CK, PTT, CBC, PT ####[address] Platelet mean volume (Bld) [Entitic vol] 9.1 fL Normal 6.6-10.1 [facility] Comment on above: Performed By: #### B HOGSHEAD BUILDER, CMP, HS TROP, CK, PTT, CBC, PT ####[address] Platelets (Bld) [#/Vol] 233 10*3/uL Normal 150-450 [facility] Comment on above: Performed By: #### B HOGSHEAD BUILDER, CMP, HS TROP, CK, PTT, CBC, PT ####[address] RBC (Bld) [#/Vol] 4.63 10*6/uL Normal 3.90-5.60 [facility] Comment on above: Performed By: #### B HOGSHEAD BUILDER, CMP, HS TROP, CK, PTT, CBC, PT ####[address] WBC (Bld) [#/Vol] 9.5 10*3/uL Normal 4.1-10.5 [facility] Comment on above: Performed By: #### B HOGSHEAD BUILDER, CMP, HS TROP, CK, PTT, CBC, PT ####[address] Comprehensive Metabolic Pane bárbara 07-12-2023 Albumin [Mass/Vol] 3.9 g/dL Normal 3.5-5.7 [facility] Comment on above: Performed By: #### B HOGSHEAD BUILDER, CMP, HS TROP, CK, PTT, CBC, PT ####[address] Albumin/Globulin [Mass ratio] 1.3 {ratio} Normal [facility] Comment on above: Performed By: #### B HOGSHEAD BUILDER, CMP, HS TROP, CK, PTT, CBC, PT ####[address] ALP [Catalytic activity/Vol] 106 U/L High 34-104 [facility] Comment on above: Performed By: #### B HOGSHEAD BUILDER, CMP, HS TROP, CK, PTT, CBC, PT ####[address] ALT [Catalytic activity/Vol] 9 U/L Normal 7-52 [facility] Comment on above: Performed By: #### B HOGSHEAD BUILDER, CMP, HS TROP, CK, PTT, CBC, PT ####[address] Anion gap [Moles/Vol] 13.4 mmol/L Normal 6.0-15.0 [facility] Comment on above: Performed By: #### B HOGSHEAD BUILDER, CMP, HS TROP, CK, PTT, CBC, PT ####[address] AST [Catalytic activity/Vol] 8 U/L Low 13-39 [facility] Comment on above: Performed By: #### B HOGSHEAD BUILDER, CMP, HS TROP, CK, PTT, CBC, PT ####[address] Bilirubin [Mass/Vol] 0.4 mg/dL Normal 0.3-1.0 [facility] Comment on above: Performed By: #### B HOGSHEAD BUILDER, CMP, HS TROP, CK, PTT, CBC, PT ####[address] Calcium [Mass/Vol] 8.5 mg/dL Low 8.6-10.3 [facility] Comment on above: Performed By: #### B HOGSHEAD BUILDER, CMP, HS TROP, CK, PTT, CBC, PT ####[address] Chloride [Moles/Vol] 102 mmol/L Normal 98-107 [facility] Comment on above: Performed By: #### B HOGSHEAD BUILDER, CMP, HS TROP, CK, PTT, CBC, PT ####[address] CO2 [Moles/Vol] 24.5 mmol/L Normal 21.0-31.0 [facility] Comment on above: Performed By: #### B HOGSHEAD BUILDER, CMP, HS TROP, CK, PTT, CBC, PT ####[place] [id number] [place] [id number] [facility] Creatinine [Mass/Vol] 1.82 mg/dL High 0.70-1.30 [facility] Comment on above: Performed By: #### B HOGSHEAD BUILDER, CMP, HS TROP, CK, PTT, CBC, PT ####[place] [id number] Creatinine Clr Calc Pharmacy 54.64 Normal [facility] Comment on above: Result Comment: PERF ORMED BY: [facility] [address] [place] [address] PATHOLOGIST ELECTRONICS ENGINEERING TECHNOLOGIST CLIFFORD LOBATO M.D. Performed By: #### B HOGSHEAD BUILDER, CMP, HS TROP, CK, PTT, CBC, PT ####[address] GFR/1.73 sq M.predicted MDRD (S/P/Bld) [Vol rate/Area] 42.789 mL/min/{1.73_m2} Normal [facility] Comment on above: Performed By: #### B HOGSHEAD BUILDER, CMP, HS TROP, CK, PTT, CBC, PT ####[address] Globulin (S) [Mass/Vol] 3.1 g/dL Normal [facility] Comment on above: Performed By: #### B HOGSHEAD BUILDER, CMP, HS TROP, CK, PTT, CBC, PT ####[place] [id number] [facility] Glucose [Mass/Vol] 302 mg/dL High 70-100 [facility] Comment on above: Result Comment: [place] Glucose Reference Range is dependent on time and content of last meal. Glucose of more than 200 mg/dL in a nonstressed, ambulatory subject supports the diagnosis of Diabetes Mellitus. ADA recommended reference range Performed By: #### B HOGSHEAD BUILDER, CMP, HS TROP, CK, PTT, CBC, PT ####[place] [id number] [facility] Potassium [Moles/Vol] 3.9 mmol/L Normal 3.5-5.1 [facility] Comment on above: Performed By: #### B HOGSHEAD BUILDER, CMP, HS TROP, CK, PTT, CBC, PT ####[place] [id number] [place] [id number] [facility] Protein [Mass/Vol] 7.0 g/dL Normal 6.4-8.9 [facility] Comment on above: Performed By: #### B HOGSHEAD BUILDER, CMP, HS TROP, CK, PTT, CBC, PT ####[place] [id number] [facility] Sodium [Moles/Vol] 136 mmol/L Normal 136-145 [facility] Comment on above: Performed By: #### B HOGSHEAD BUILDER, CMP, HS TROP, CK, PTT, CBC, PT ####[place] [id number] [place] [id number] [facility] Urea nitrogen [Mass/Vol] 16 mg/dL Normal 7-25 [facility] Comment on above: Performed By: #### B HOGSHEAD BUILDER, CMP, HS TROP, CK, PTT, CBC, PT ####[address] [address] [facility] Creatine Kinaseon 07-12-2023 CK [Catalytic activity/Vol] 55 U/L Normal 30-223 [facility] Comment on above: Performed By: #### B HOGSHEAD BUILDER, CMP, HS TROP, CK, PTT, CBC, PT ####[place] [id number] [facility] Creatine kinase [Enzymatic a ctivity/volume] in Serum or PlasmaOrdered By: Nancy Wilson on 07-12-2023 CK [Catalytic activity/Vol] 55 U/L 30-223 [facility] Creatinine [Mass/volume] in Serum or PlasmaOrdered By: Nancy Wilson on 07-12-2023 Creatinine [Mass/Vol] 1.82 mg/dL 0.70-1.30 [facility] ECG 12 lead ECGon 07-12-2023 ECG 12 lead ECG [facility] [address] [place] [address] [place] [address] Electrocardiograph Report Signed Patient: Solomon Feldman María CHRISTIAN MR#: [id number] : 1965 Acct:[id number] Age/Sex: 57 / M ADM Date: 07/12/23 Loc: ER Room: Type: [facility] ER Attending Dr: Ordering Provider: Nancy Wilson [...] By Nancy Wilson MD 01/26 0135 Normal [facility] Eosinophils Auto (Bld) [#/Vo l]Ordered By: Nancy Wilson on 07-12-2023 Eosinophils (Bld) [#/Vol] 0.3 10*3/uL 0.0-0.45 [facility] Eosinophils/100 WBC Auto (Bl d)Ordered By: Nancy Wilson on 07-12-2023 Eosinophils/100 WBC (Bld) 3.3 % . [facility] Erythrocyte distribution wid th Auto (RBC) [Ratio]Ordered By: Nancy Wilson on 07-12-2023 Erythrocyte distribution width (RBC) [Ratio] 17.1 % 12.0-14.8 [facility] Globulin Calc (S) [Mass/Vol] Ordered By: Nancy Wilson on 07-12-2023 Globulin (S) [Mass/Vol] 3.1 g/dL [facility] Glucose [Mass/volume] in Ser um or PlasmaOrdered By: Nancy Wilson on 07-12-2023 Glucose [Mass/Vol] 302 mg/dL 70-100 [facility] Comment on above: ADA recommended refe rence rangeRandom Glucose Reference Range is dependent on time and content of last meal. Glucose of more than 200 mg/dL in a nonstressed, ambulatory subject supports the diagnosis of Diabetes Mellitus. Hematocrit Auto (Bld) [Volum e fraction]Ordered By: Nancy Wilson on 07-12-2023 Hematocrit (Bld) [Volume fraction] 32.7 % 38.8-50.0 [facility] Hemoglobin [Mass/volume] in BloodOrdered By: Nancy Wilson on 07-12-2023 Hemoglobin (Bld) [Mass/Vol] 10.6 g/dL 13.0-17.0 [facility] INR in Platelet poor plasma by Coagulation assayOrdered By: Nancy Wilson on 07-12-2023 INR Coag (PPP) [Relative time] 1.1 {INR} [facility] Comment on above: INR Therapeutic Rang [...] RBC Auto (Bld) [#/Vol] 9.5 10*3/uL 4.1-10.5 [facility] Lymphocytes Auto (Bld) [#/Vo l]Ordered By: Nancy Wilson on 07-12-2023 Lymphocytes (Bld) [#/Vol] 1.9 10*3/uL 1.00-4.8 [facility] Lymphocytes/100 WBC Auto (Bl d)Ordered By: Nancy Wilson on 07-12-2023 Lymphocytes/100 WBC (Bld) 20.0 % . [facility] MCH Auto (RBC) [Entitic mass ]Ordered By: Nancy Wilson on 07-12-2023 MCH (RBC) [Entitic mass] 22.8 pg 27.5-35.2 [facility] MCHC Auto (RBC) [Mass/Vol]Or dered By: Nancy Wilson on 07-12-2023 MCHC (RBC) [Mass/Vol] 32.4 g/dL 32.5-35.6 [facility] MCV Auto (RBC) [Entitic vol] Ordered By: Nancy Wilson on 07-12-2023 MCV (RBC) [Entitic vol] 70.6 fL 83.5-101 [facility] Monocyte distribution width [Entitic volume] in Blood by AutomatedOrdered By: Nancy Wilson on 07-12-2023 Monocyte distribution width Auto (Bld) [Entitic vol] 18.12 % 0.00-20.00 [facility] Monocytes Auto (Bld) [#/Vol] Ordered By: Nancy Wilson on 07-12-2023 Monocytes (Bld) [#/Vol] 1.0 10*3/uL 0.0-0.8 [facility] Monocytes/100 WBC Auto (Bld) Ordered By: Nancy Wilson on 07-12-2023 Monocytes/100 WBC (Bld) 10.2 % . [facility] Natriuretic peptide B [Mass/ Vol]Ordered By: Nancy Wilson on 07-12-2023 Natriuretic peptide B (Bld) [Mass/Vol] 34.0 pg/mL 5-100 [facility] Neutrophils Auto (Bld) [#/Vo l]Ordered By: Nancy Wilson on 07-12-2023 Neutrophils (Bld) [#/Vol] 6.2 10*3/uL 1.8-7.7 [facility] Neutrophils/100 WBC Auto (Bl d)Ordered By: Nancy Wilson on 07-12-2023 Neutrophils/100 WBC (Bld) 65.4 % . [facility] No Panel InformationOrdered By: Nancy Wilson on 07-12-2023 Estimated GFR (CKD-EPI) 42.789 mL/Min [facility] Creatinine Clearance (Chem 54.64 [facility] Nucleated erythrocytes [Pres ence] in Blood by Automated countOrdered By: Nancy Wilson on 07-12-2023 Nucleated RBC Auto Ql (Bld) 0.1 /100{WBC} 0-0.5 [facility] Partial Thromboplastin Timeo n 07-12-2023 aPTT Coag (Bld) [Time] 29.4 s Normal 25.1-36.5 [facility] Comment on above: Result Comment: A he matocrit value greater than 55% may lead to inaccurate results in coagulation testing. Patients having hematocrit values >55% require a special collection tube for coagulation studies. Please contact the laboratory at [phone] for redraw instructions. PERFORMED BY: [facility] [address] [place] [id number] PATHOLOGIST ELECTRONICS ENGINEERING TECHNOLOGIST CLIFFORD LOBATO M.D. Performed By: #### B HOGSHEAD BUILDER, CMP, HS TROP, CK, PTT, CBC, PT ####[facility] [address] [place] [id number] [facility] Platelet mean volume Auto (B ld) [Entitic vol]Ordered By: Nancy Wilson on 07-12-2023 Platelet mean volume (Bld) [Entitic vol] 9.1 fL 6.6-10.1 [facility] Platelets Auto (Bld) [#/Vol] Ordered By: Nancy Wilson on 07-12-2023 Platelets (Bld) [#/Vol] 233 10*3/uL 150-450 [facility] Potassium [Moles/volume] in Serum or PlasmaOrdered By: Nancy Wilson on 07-12-2023 Potassium [Moles/Vol] 3.9 mmol/L 3.5-5.1 [facility] Protein [Mass/volume] in Ser um or PlasmaOrdered By: Nancy Wilson on 07-12-2023 Protein [Mass/Vol] 7.0 g/dL 6.4-8.9 [facility] Prothrombin Time INRon 07-12 INR Coag (PPP) [Relative time] 1.1 {INR} Normal [facility] Comment on above: Result Comment: INR Therapeutic [...] 3 - 4.5 Performed By: #### B HOGSHEAD BUILDER, CMP, HS TROP, CK, PTT, CBC, PT ####[facility] [place] [id number] [facility] PT Coag (PPP) [Time] 12.1 s Normal 9.0-12.9 [facility] Comment on above: Result Comment: A he matocrit value greater than 55% may lead to inaccurate results in coagulation testing. Patients having hematocrit values >55% require a special collection tube for coagulation studies. Please contact the laboratory at [phone] for redraw instructions. Performed By: #### B HOGSHEAD BUILDER, CMP, HS TROP, CK, PTT, CBC, PT ####[facility] [address] [place] [address] [facility] Prothrombin time (PT)Ordered By: Nancy Wilson on 07-12-2023 PT Coag (PPP) [Time] 12.1 s 9.0-12.9 [facility] Comment on above: A hematocrit value g reater than 55% may lead to inaccurate results in coagulation testing. Patients having hematocrit values >55% require a special collection tube for coagulation studies. Please contact the laboratory at [phone] for redraw instructions. RBC Auto (Bld) [#/Vol]Ordere d By: Nancy Wilson on 07-12-2023 RBC (Bld) [#/Vol] 4.63 10*6/uL 3.90-5.60 [facility] Serum or plasma albumin/glob ulin mass ratioOrdered By: Nancy Wilson on 07-12-2023 Albumin/Globulin [Mass ratio] 1.3 {ratio} [facility] Serum or plasma anion gap de terminationOrdered By: Nancy Wilson on 07-12-2023 Anion gap [Moles/Vol] 13.4 mmol/L 6.0-15.0 [facility] Sodium [Moles/volume] in Ser um or PlasmaOrdered By: Nancy Wilson on 07-12-2023 Sodium [Moles/Vol] 136 mmol/L 136-145 [facility] Troponin I High Sensitivityo n 07-12-2023 Troponin I High Sensitivity 4.6 pg/mL Normal 0.0-20.0 [facility] Comment on above: Result Comment: PERF ORMED BY: [facility] [address] [place] [address] PATHOLOGIST ELECTRONICS ENGINEERING TECHNOLOGIST CLIFFORD LOBATO M.D. Performed By: #### B HOGSHEAD BUILDER, CMP, HS TROP, CK, PTT, CBC, PT ####[facility] [address] Troponin I.cardiac [Mass/vol ume] in Serum or Plasma by Detection limit <= 0.01 ng/Ordered By: Nancy Wilson on 07-12-2023 Troponin I.cardiac DL <= 0.01 ng/mL [Mass/Vol] 4.6 pg/mL 0.0-20.0 [facility] Urea nitrogen [Mass/volume] in Serum or PlasmaOrdered By: Nancy Wilson on 07-12-2023 Urea nitrogen [Mass/Vol] 16 mg/dL 7-25 [facility] WBC Auto (Bld) [#/Vol]Ordere d By: Nancy Wilson on 07-12-2023 WBC (Bld) [#/Vol] 9.5 10*3/uL 4.1-10.5 [facility] XR chest 1V portableon 07-12 XR chest 1V portable [facility] [address] [address] [place] [address] XRay Report Signed Patient: Solomon Feldman MR#: [id number] : 1965 Acct:[id number] Age/Sex: 57 / M ADM Date: 07/12/23 [...] Sudeep Lind M.D.07/12/2023 5:08 PM Dictation Location: [place] [address] Transcribed By: BOB 07/12/231707 Dictated By: Sudeep Lind DO 07/12/231706 Signed By: 07/12/231707 Normal [facility] Patient Educationon 06-02-20 Patient Education Urology Benign [...] Follow these instructions at home: ? Take boia-vdh-muhabuo and prescription medicines only as told by [...] the medicine (more content not included)... Normal [facility] Retail - Clinical Noteon Retail - Clinical Note [id number]#1.00TIFF Normal [facility] Urology Office/Clinic Noteon 06-02-2023 Urology Office/Clinic Note Chief Complaint S/p to Cysto HPI Staff Sp [place] [facility] [place] Has not noticed any difference- [...] Contact Information Yeyo ROWE MD, URL [address] [place] [address]- Additional Instructions: 1 month w/ cath volumes [...] heart failure) (more content not included)... Normal [facility] Comment on above: Result Comment: Elec tronically Signed By: Yeyo ROWE MD\.br\Date and Time Signed: 06/02/23 12:16 EST\.br\Electronically Co-Signed By: Matite Foster\.br\Date and Time Co-Signed: 06/02/23 12:04 EST Patient Educationon 05-03-20 23 Patient Education Normal [facility] Pathology Noteon 05-02-2023 Pathology Note [id number]#1.00TIFF Normal [facility] Lab Reportson 04-14-2023 Lab Reports [id number]#1.00TIFF Normal [facility] Operative Reporton 11-10-202 3 Operative Report [id number]#1.00TIFF Normal [facility] Patient Correspondenceon Patient Correspondence [id number]#1.00TIFF Normal [facility] Lab Reportson 03-31-2023 Lab Reports [id number]#1.00TIFF Normal [facility] RAD - MISCon 03-31-2023 RAD - MISC [id number]#1.00TIFF Normal [facility] Patient Correspondenceon Patient Correspondence [id number]#1.00TIFF [facility] Formson 03-23-2023 Forms [id number]#1.00TIFF [facility] A1C HEMOGLOBINon 03-15-2023 HbA1c (Bld) [Mass fraction] 7.5 % [facility] Other HbA1c (Bld) [Mass fraction]o n 03-15-2023 A1C HEMOGLOBIN [facility] Other Lab Reportson 03-09-2023 Lab Reports [id number]#1.00TIFF [facility] Consultation Noteon 02-28-20 23 Consultation Note [id number]#1.00CD:12 7 [facility] Consent for Procedure/Surger yon 02-15-2023 Consent for Procedure/Surgery [id number]#1.00CD:12 7 [facility] Office Visit (Cardiology)on 02-15-2023 Follow-up visit Diagnoses/Problems [...] in adult Healthy Weight Tips; Status:Complete; Done: [id number] Patient Instructions Please bring all medicines, vitamins, [...] Sia HERRERA, (more content not included)... Normal [facility] Tobacco Screening.on 023 Fall risk assessment c) Not medically indicated [facility] [address] 250 DO Work Phone: Tobacco use status CPHS b) No [facility] [address] 250 DO Work Phone: Tobacco Screening. Yes -[facility] [address] 250 DO Work Phone: Consent for Procedure/Surger yon 02-14-2023 Consent for Procedure/Surgery [id number]#1.00CD:1 27 [facility] Consent for Procedure/Surgery [id number]#1.00CD:1 27 [facility] Consent for Treatmenton 02-03 Consent for Treatment [id number]#1.00CD:12 7 [facility] IntraOperative Documentson 0 02-14-2023 IntraOperative Documents [id number]#1.00CD:1 27 [facility] IntraOperative Documents [id number]#1.00CD:1 27 [facility] Main OR Intraoperative Recor don 02-14-2023 Main OR Intraoperative Record IntraOp Document Type FTURO Summary Primary Physician: Yeyo ROWE MD Finalized Date/Time: 02/14/23 10:18:58 Pt. Name: GASTON CHRISTIAN, SOLOMON Aceves/Sex: 1965 Male Med Rec #: [id number] Physician: Yeyo ROWE MD Financial #: [id number] Pt. Type: O Room/Bed: / Admit/Disch: 02/14/23 08:34:46 - Institution: Case Times FTURO Entry 1 Patient Times In Room 02/14/23 09:29:00 Out Room 02/14/23 09:49:00 Procedure Times Start 02/14/23 09:42:00 Stop 02/14/23 09:45:00 Anesthesia Times Last Modified By: Mauricio STERN, Chandrika Martin 02/14/23 09:45:24 Case Attendance FTURO Entry 1 Entry 2 Entry 3 Case Attendee SOLEDAD HERRERA, Yeyo Martínez RN, Chandrika Yin DOUGHNUT DOUGH MIXER, Sheri Daniel Role Performed Surgeon - Primary Carpenter Mate - Primary Scrub - Primary Time In [...] Procedure Yes Primary Surgeon Yeyo ROWE MD Start 02/14/23 09:42:00 Stop 02/14/23 09:45:00 [...] 09:45 Chandrika Martínez RN 02/14/23 10:18 Normal [facility] Main OR Preoperative Recordo n 02-14-2023 Main OR Preoperative Record Holding Area Document Type FTURO Summary Primary Physician: Yeyo ROWE MD Finalized Date/Time: 02/14/23 09:01:37 Pt. Name: GASTON CHRISTIAN, SOLOMON Aceves/Sex: 1965 Male Med Rec #: [id number] Physician: Yeyo ROWE MD Financial #: [id number] Pt. Type: O Room/Bed: / Admit/Disch: 02/14/23 [...] By: Sheri Bolivar RN 02/14/23 09:01 Normal [facility] Operative Reporton Operative Report Patient: Joe FELDMAN SR Age: 57 years Sex: Male [...] with antibiotic coverage, Follow up arranged. Normal [facility] Comment on above: Result Comment: Elec [...] including vitamins, herbs, eye drops, creams, and mhli-ivj-unroinx medicines. ? Any problems you or family [...] tells you to take them. ? Taking yeeb-tts-lfbqcer medicines, vitamins, herbs, and supplements. Surgery safety [...] health care (more content not included)... Normal [facility] Progress Note-Physicianon Progress Note-Physician Patient: SOLOMON [...] mg = 1 tab(s), PRN, SubLingual, q5min Bryan 325 mg-5 mg oral tablet 1 tab(s), [...] 278.00 / Possible Fibromyalgia / SNOMED CT [id number]-8503-88Q3-6 195640A59Z5 / Confirmed Restless leg / ICD-9-CM 333.94 / Confirmed Arthritis / SNOMED CT 66OQ4647-0U3C-22X0-6F4L-X XE6I696M324 / Confirmed Hyperlipidemia / SNOMED CT 62340955 / Confirmed Smoker / SNOMED CT G209YZ0Z-3530-68O0-0003-R YO6W9058XG4 / Confirmed Added secondary to documentation in Social History. Asthma / SNOMED CT 010336247 / Confirmed COPD type A / SNOMED CT 923644629 / Confirmed Head ache / SNOMED CT 84655218 / Confirmed Heart attack / SNOMED CT 33976526 / Confirmed Heart disease / SNOMED CT 59015853 / Confirmed Heart murmur / SNOMED CT 016765668 / Confirmed Urinary retention / SNOMED CT 388694905 / Confirmed BPH with obstruction/lower urinary tract symptoms / SNOMED CT 1491632777 / Confirmed Orchitis / SNOMED CT 086729799 / Confirmed Gross hematuria / SNOMED CT 231157712 / Confirmed Tobacco use / SNOMED CT NWFS5764-0020-4F91-N7L9-8 47261EZ9DX3 / Confirmed Added secondary to social history documentation. Histories Past Medical History: Active Fibromyalgia (N4A929H9-H34F-9489-12N9- 7039765D22R5) Restless leg (333.94) Arthritis (71RH2524-1C2H-05P1-9Q7K- DZF1B445J547) Hyperlipidemia (73222018) Resolved HTN [Hypertension] (401.9): Resolved. NIDDM (250.00): Resolved. GERD [Gastroesophageal reflux disease] (530.81): Resolved. CHF (congestive heart failure) (T2286860-4F8E-0O5K-9B06- Y868248J0O24): Resolved. UT (myocardial infarction) (152W7OIC-21G6-0B8U-8Z25- 37653Q32T4EP): Resolved. Family History: Diabetes mellitus Mother Heart disease Mother Alcoholism Brother Drug addiction Brother Acute myocardial infarction Mother Grandparent Procedure history: Bilateral Eye Surgery. Comments: 07/10/2014 17:25 Kati Causey RN bilateral cataracts with iol implants Bilateral Carpal Tunnel Surgery. cardiac stents. Appendectomy (655635718). Colonoscopy (013673835). Cataract extraction and insertion of intraocular lens (6174639995). Procedure on back (255119158). Social History Social & Psychosocial Habits Alcohol [...] procedure such (more content not included)... Normal [facility] Comment on above: Result Comment: Elec tronically Signed By: SOLEDAD HERRERA, Yeyo Blum\.br\Date and Time Signed: 02/14/23 09:58 EDT Consent for Treatmenton 09-0 Consent for Treatment [id number]#1.00CD:12 7 Normal [facility] Ambulatory Visit Summaryon 0 01-30-2023 Ambulatory Visit Summary GASTON CHRISTIAN, SOLOMON Daniel :1965 Visit Date:01/30/2023 Ambulatory Visit Instructions Your Diagnosis Urinary retention Gross hematuria BPH with obstruction/lower urinary tract symptoms Orchitis Your Care Team Attending Physician - Yeyo ROWE MD Primary Care Physician - JENARO LYNCH DO This Is Your Medications List Contact prescribing physician if questions or concerns acetaminophen-hydrocodone (Bryan 325 mg-5 mg oral tablet) albuterol (ProAir [...] [facility] [address] [place] [address] [phone] Medications What How Much When Instructions Unchanged acetaminophen-hydrocodone (Bryan 325 mg-5 mg oral tablet) 1 Tablets [...] or vivian (more content not included)... Normal [facility] Patient Educationon 01-31-20 Patient Education Urology Urodynamic Testing Urodynamic tests [...] including vitamins, herbs, eye drops, creams, and mojr-jai-pfivuui medicines. ? Whether you are or may [...] results be (more content not included)... Normal [facility] Urology Office/Clinic Noteon 01-30-2023 Urology Office/Clinic [...] [facility] [address], [place] [address] [phone] Additional Instructions: sched cysto/uros Patient Education Urodynamic [...] failure) GERD [Gastroesophageal reflux disease] HTN [Hypertension] UT (myocardial infarction) NIDDM Procedure/Surgical History Appendectomy, Bilateral [...] mg, BID (more content not included)... Normal [facility] Comment on above: Result Comment: Elec tronically Signed By: Saima Sutton\ras\Date and Time Signed: 01/30/23 11:38 EDT [facility] CARDIAC STRESS/REST INJE CTIONon 01-25-2023 [facility] CARDIAC STRESS/REST INJECTION Patient Name: SOLOMON FELDMAN STUDY: MYOCARDIAL PERFUSION STRESS TEST WITH EXERCISE CONVERTED TO LEXISCAN Performing facility: [facility], [address] [place] [address], [address], [address] Provider: Dolores Feldman RN, DOUGHNUT MACHINE OPERATOR PCP: Dr. Jenaro Lynch Supervising provider: Pascale Arnold MD, [facility] INDICATION: Anginal equivalent CAD; HISTORY: Gender: M; Age: 57 y/o ; Height: 182.88 cm; Weight: 97.1841947 kg. High Cholesterol; CAD; Diabetes; HTN; Palpitations; Chest Pain; Quit smoking unknown years ago. COMPARISON: Previous nuclear testing completed at [facility]. ACCESSION NUMBER(S): [id number]; [id number]; [id number] ORDERING CLINICIAN: DOLORES FELDMAN TECHNIQUE: ONE DAY [...] Electronically signed by: PASCALE ARNOLD MD Normal [facility] No Panel Informationon 01-25 Normal [facility] [address] DO Work Phone: [...] contact the office if new symptoms arise. 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 Normal [facility] Tobacco Screening.on 023 Adult depression screening assessment No [facility] [employer] 600 DO Work Phone: Tobacco use status CPHS b) No [facility] [employer] 600 DO Work Phone: Ambulatory Visit Summaryon 0 12-28-2022 Ambulatory Visit Summary SOLOMON FELDMAN SR :1965 Visit Date:12/28/2022 Ambulatory Visit Instructions Your Care Team Attending Physician - Yeyo ROWE MD Primary Care Physician - JENARO LYNCH DO This Is Your Medications List acetaminophen-hydrocodone (Bryan 325 mg-5 mg oral tablet) albuterol (ProAir [...] Yeyo ROWE MD Where: [facility] Formson 11-24-2022 Forms [id number]#1.00CD:127 [facility] Screenson 11-24-2022 Screens [id number]#1.00CD:1 27 Normal [facility] Patient Educationon 11-23- 23 Patient Education Urology Indwelling Urinary Catheter [...] Reviewed: 05/07/2021 Elsevier Patient Education ? 2021 [employer] Marquise Chatman [facility] Urology Office/Clinic Noteon 11-23-2022 Urology [...] bid x 3 weeks. Rx sent to [facility] Aurelio. Follow-up With When Contact Information SOLEDAD HERRERA, Yeyo Blum, URL [facility] [address] [place] [address]- Additional Instructions: 1 month for cath change [...] failure) GERD [Gastroesophageal reflux disease] HTN [Hypertension] UT (myocardial infarction) NIDDM Procedure/Surgical History Appendectomy, Bilateral Carpal Tunnel Surgery, Bilateral Eye Surgery, cardiac stents, Ca (more content not included)... Normal [facility] Comment on above: Result Comment: Elec tronically Signed By: Yeyo ROWE MD R\.br\Date and Time Signed: 11/23/22 12:47 EDT\.br\Electronically Co-Signed By: Lorie Leblanc P\.br\Date and Time Co-Signed: 11/23/22 12:46 EDT A1C with Estimated Average Ines whitman 09-27-2022 Glucose [Mass/Vol] 246 mg/dL Normal [facility] Comment on above: Order Comment: Reaso n for Exam Type 2 diabetes mellitus with circulatory disorder Result Comment: PERF ORMED BY: [place] [address] PATHOLOGIST ELECTRONICS ENGINEERING TECHNOLOGIST CLIFFORD LOBATO M.D. Performed By: #### A 1C [facility] eA #### [address] HbA1c (Bld) [Mass fraction] 10.2 % High 4.3-5.6 [facility] Comment on above: Order Comment: Reaso n for Exam Type 2 diabetes mellitus with circulatory disorder Result Comment: Incr eased risk for diabetes: 5.7 - 6.4 diabetes: >6.4 glycemic control for adults with diabetes: <7.0 Performed By: #### A 1C WT eA #### [facility] [address] [place] [address] Alanine aminotransferase [En zymatic activity/volume] in Serum or PlasmaOrdered By: Jenaro Lynch on 09-27-2022 ALT [Catalytic activity/Vol] 15 U/L [facility] Albumin [Mass/volume] in Ser um or Plasma by Bromocresol green (BCG) dye binding methoOrdered By: Jenaro Lynch on 09-27-2022 Albumin BCG dye [Mass/Vol] 4.1 g/dL 3.5-5.7 [facility] Alkaline phosphatase [Enzyma tic activity/volume] in Serum or PlasmaOrdered By: Jenaro Lynch on 09-27-2022 ALP [Catalytic activity/Vol] 116 U/L 34-104 [facility] Aspartate aminotransferase [ Enzymatic activity/volume] in Serum or PlasmaOrdered By: Jenaro Lynch on 09-27-2022 AST [Catalytic activity/Vol] 15 U/L 13-39 [facility] Basophils Auto (Bld) [#/Vol] Ordered By: Jenaro Lynch on 09-27-2022 Basophils (Bld) [#/Vol] 0.1 10*3/uL 0.0-0.2 [facility] Basophils/100 WBC Auto (Bld) Ordered By: Jenaro Lynch on 09-27-2022 Basophils/100 WBC (Bld) 1.1 % . [facility] Bilirubin.total [Mass/volume ] in Serum or PlasmaOrdered By: Jenaro Lynch on 09-27-2022 Bilirubin [Mass/Vol] 0.4 mg/dL 0.3-1.0 [facility] Calcium [Mass/volume] in Ser um or PlasmaOrdered By: Jenaro Lynch on 09-27-2022 Calcium [Mass/Vol] 8.8 mg/dL 8.6-10.3 [facility] Carbon dioxide, total [Moles /volume] in Serum or PlasmaOrdered By: Jenaro Lynch on 09-27-2022 CO2 [Moles/Vol] 27.2 mmol/L 21.0-31.0 [facility] Chloride [Moles/volume] in S ilia or PlasmaOrdered By: Jenaro Lynch on 09-27-2022 Chloride [Moles/Vol] 99 mmol/L 98-107 [facility] Cholesterol [Mass/volume] in Serum or PlasmaOrdered By: Jenaro Lynch on 09-27-2022 Cholesterol [Mass/Vol] 104 mg/dL 140-200 [facility] Comment on above: Chol less than 200 m g/dl low riskChol 201-239 mg/dl borderline riskChol 240 mg/dl and greater high risk Cholesterol in LDL Calc [Mas s/Vol]Ordered By: Jenaro Lynch on 09-27-2022 Cholesterol in LDL [Mass/Vol] TNP [facility] Comment on above: Test not performed Cholesterol in LDL [Mass/vol ume] in Serum or PlasmaOrdered By: Jenaro Lynch on 09-27-2022 Cholesterol in LDL [Mass/Vol] 38 mg/dL 0-100 [facility] Comment on above: LDL ATP III CLASSIFI CATIONLDL less than 100 mg/dL OptimalLDL 100-129 mg/dL Near or above optimalLDL 130-159 mg/dL Borderline highLDL 160-189 mg/dL HighLDL greater than 189 mg/dL Very high Cholesterol in VLDL Calc [Ma ss/Vol]Ordered By: Jenaro Lynch on 09-27-2022 Cholesterol in VLDL [Mass/Vol] 99 mg/dL [facility] Complete Blood Count Auto Di ffon 09-27-2022 Basophils (Bld) [#/Vol] 0.1 10*3/uL Normal 0.0-0.2 [facility] Comment on above: Order Comment: Reaso n for Exam Hyperlipidemia;Type 2 diabetes mellitus with circulatory dis Result Comment: PERF ORMED BY: [facility] [address] [facility] [address] PATHOLOGIST [employer]LECT[employer] ENGINEERING TECHNOLOGIST CLIFFORD LOBATO M.D. Performed By: #### C BC ####[place] [id number] [place] Basophils/100 WBC (Bld) 1.1 % Normal . [facility] Comment on above: Order Comment: Reaso n for Exam Hyperlipidemia;Type 2 diabetes mellitus with circulatory dis Performed By: #### C BC ####[address] [address] [place] Eosinophils (Bld) [#/Vol] 0.7 10*3/uL High 0.0-0.45 [facility] Comment on above: Order Comment: Reaso n for Exam Hyperlipidemia;Type 2 diabetes mellitus with circulatory dis Performed By: #### C BC ####[address] [address] [place] Eosinophils/100 WBC (Bld) 5.9 % Normal . [facility] Comment on above: Order Comment: Reaso n for Exam Hyperlipidemia;Type 2 diabetes mellitus with circulatory dis Performed By: #### C BC ####[place] [id number] [facility] Erythrocyte distribution width (RBC) [Ratio] 16.0 % High 12.0-14.8 [facility] Comment on above: Order Comment: Reaso n for Exam Hyperlipidemia;Type 2 diabetes mellitus with circulatory dis Performed By: #### C BC ####[place] [id number] [facility] Hematocrit (Bld) [Volume fraction] 41.0 % Normal 38.8-50.0 [facility] Comment on above: Order Comment: Reaso n for Exam Hyperlipidemia;Type 2 diabetes mellitus with circulatory dis Performed By: #### C BC ####[place] [id number] [facility] Hemoglobin (Bld) [Mass/Vol] 13.2 g/dL Normal 13.0-17.0 [facility] Comment on above: Order Comment: Reaso n for Exam Hyperlipidemia;Type 2 diabetes mellitus with circulatory dis Performed By: #### C BC ####[place] [id number] [facility] Lymphocytes (Bld) [#/Vol] 2.3 10*3/uL Normal 1.00-4.8 [facility] Comment on above: Order Comment: Reaso n for Exam Hyperlipidemia;Type 2 diabetes mellitus with circulatory dis Performed By: #### C BC ####[place] [id number] [facility] Lymphocytes/100 WBC (Bld) 18.2 % Normal . [facility] Comment on above: Order Comment: Reaso n for Exam Hyperlipidemia;Type 2 diabetes mellitus with circulatory dis Performed By: #### C BC ####[place] [id number] [facility] MCH (RBC) [Entitic mass] 23.9 pg Low 27.5-35.2 [facility] Comment on above: Order Comment: Reaso n for Exam Hyperlipidemia;Type 2 diabetes mellitus with circulatory dis Performed By: #### C BC ####[address] MCV (RBC) [Entitic vol] 74.3 fL Low 83.5-101 [facility] Comment on above: Order Comment: Reaso n for Exam Hyperlipidemia;Type 2 diabetes mellitus with circulatory dis Performed By: #### C BC ####[address] Mean Corpuscular HGB Conc 32.2 g/dL Low 32.5-35.6 [facility] Comment on above: Order Comment: Reaso n for Exam Hyperlipidemia;Type 2 diabetes mellitus with circulatory dis Performed By: #### C BC ####[address] Monocytes (Bld) [#/Vol] 1.0 10*3/uL High 0.0-0.8 [facility] Comment on above: Order Comment: Reaso n for Exam Hyperlipidemia;Type 2 diabetes mellitus with circulatory dis Performed By: #### C BC ####[address] Monocytes/100 WBC (Bld) 7.9 % Normal . [facility] Comment on above: Order Comment: Reaso n for Exam Hyperlipidemia;Type 2 diabetes mellitus with circulatory dis Performed By: #### C BC ####[address] Neutrophils (Bld) [#/Vol] 8.3 10*3/uL High 1.8-7.7 [facility] Comment on above: Order Comment: Reaso n for Exam Hyperlipidemia;Type 2 diabetes mellitus with circulatory dis Performed By: #### C BC ####[address] Neutrophils/100 WBC (Bld) 66.9 % Normal . [facility] Comment on above: Order Comment: Reaso n for Exam Hyperlipidemia;Type 2 diabetes mellitus with circulatory dis Performed By: #### C BC ####[address] NRBC% 0.1 /100{WBC} Normal 0-0.5 [facility] Comment on above: Order Comment: Reaso n for Exam Hyperlipidemia;Type 2 diabetes mellitus with circulatory dis Performed By: #### C BC ####[place] [id number] [place] [id number] [facility] Platelet mean volume (Bld) [Entitic vol] 9.1 fL Normal 6.6-10.1 [facility] Comment on above: Order Comment: Reaso n for Exam Hyperlipidemia;Type 2 diabetes mellitus with circulatory dis Performed By: #### C BC ####[place] [id number] [place] [id number] [facility] Platelets (Bld) [#/Vol] 209 10*3/uL Normal 150-450 [facility] Comment on above: Order Comment: Reaso n for Exam Hyperlipidemia;Type 2 diabetes mellitus with circulatory dis Performed By: #### C BC ####[place] [id number] [facility] RBC (Bld) [#/Vol] 5.52 10*6/uL Normal 3.90-5.60 [facility] Comment on above: Order Comment: Reaso n for Exam Hyperlipidemia;Type 2 diabetes mellitus with circulatory dis Performed By: #### C BC ####[place] [id number] [facility] WBC (Bld) [#/Vol] 12.4 10*3/uL High 4.1-10.5 [facility] Comment on above: Order Comment: Reaso n for Exam Hyperlipidemia;Type 2 diabetes mellitus with circulatory dis Performed By: #### C BC ####[place] [id number] [place] [id number] [facility] Comprehensive Metabolic Pane bárbara 09-27-2022 Albumin [Mass/Vol] 4.1 g/dL Normal 3.5-5.7 [facility] Comment on above: Order Comment: Reaso n for Exam Hyperlipidemia;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 Reason for Exam Gout Performed By: #### T SH3, LDLD, CMP, URIC, LIPID #### [facility] [address] [place] [id number] [facility] Albumin/Globulin [Mass ratio] 1.4 {ratio} Normal [facility] Comment on above: Order Comment: Reaso n for Exam Hyperlipidemia;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 Reason for Exam Gout Performed By: #### T SH3, LDLD, CMP, URIC, LIPID #### [facility] [address] ALP [Catalytic activity/Vol] 116 U/L High 34-104 [facility] Comment on above: Order Comment: Reaso n for Exam Hyperlipidemia;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 Reason for Exam Gout Performed By: #### T SH3, LDLD, CMP, URIC, LIPID #### [facility] [address] [place] [address] ALT [Catalytic activity/Vol] 15 U/L Normal 7-52 [facility] Comment on above: Order Comment: Reaso n for Exam Hyperlipidemia;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 Reason for Exam Gout Performed By: #### T SH3, LDLD, CMP, URIC, LIPID #### [facility] [address] [place] [address] [place] Anion gap [Moles/Vol] 14.1 mmol/L Normal 6.0-15.0 [facility] Comment on above: Order Comment: Reaso n for Exam Hyperlipidemia;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 Reason for Exam Gout Performed By: #### T SH3, LDLD, CMP, URIC, LIPID #### [facility] [address] [place] [address] AST [Catalytic activity/Vol] 15 U/L Normal 13-39 [facility] Comment on above: Order Comment: Reaso n for Exam Hyperlipidemia;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 Reason for Exam Gout Performed By: #### T SH3, LDLD, CMP, URIC, LIPID #### [facility] [address] [place], [place] [id number] [place] Bilirubin [Mass/Vol] 0.4 mg/dL Normal 0.3-1.0 [facility] Comment on above: Order Comment: Reaso n for Exam Hyperlipidemia;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 Reason for Exam Gout Performed By: #### T SH3, LDLD, CMP, URIC, LIPID #### [facility] [address] [place] [address] [place] Calcium [Mass/Vol] 8.8 mg/dL Normal 8.6-10.3 [facility] Comment on above: Order Comment: Reaso n for Exam Hyperlipidemia;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 Reason for Exam Gout Performed By: #### T SH3, LDLD, CMP, URIC, LIPID #### [facility] [address] [place] [phone] [place] Chloride [Moles/Vol] 99 mmol/L Normal 98-107 [facility] Comment on above: Order Comment: Reaso n for Exam Hyperlipidemia;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 Reason for Exam Gout Performed By: #### T SH3, LDLD, CMP, URIC, LIPID #### [facility] [address] [place] [id number] [facility] CO2 [Moles/Vol] 27.2 mmol/L Normal 21.0-31.0 [facility] Comment on above: Order Comment: Reaso n for Exam Hyperlipidemia;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 Reason for Exam Gout Performed By: #### T SH3, LDLD, CMP, URIC, LIPID #### [facility] [address] Creatinine [Mass/Vol] 1.84 mg/dL High 0.70-1.30 [facility] Comment on above: Order Comment: Reaso n for Exam Hyperlipidemia;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 Reason for Exam Gout Performed By: #### T SH3, LDLD, CMP, URIC, LIPID #### [facility] [address] [place] [phone] [place] GFR/1.73 sq M.predicted MDRD (S/P/Bld) [Vol rate/Area] 42.232 mL/min/{1.73_m2} Normal [facility] Comment on above: Order Comment: Reaso n for Exam Hyperlipidemia;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 Reason for Exam Gout Performed By: #### T SH3, LDLD, CMP, URIC, LIPID #### [facility] [address] [place] [phone] [place] Globulin (S) [Mass/Vol] 2.9 g/dL Normal [facility] Comment on above: Order Comment: Reaso n for Exam Hyperlipidemia;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 Reason for Exam Gout Performed By: #### T SH3, LDLD, CMP, URIC, LIPID #### [facility] [address] [place] [id number] [facility] Glucose [Mass/Vol] 225 mg/dL High 70-100 [facility] Comment on above: Order Comment: Reaso n for Exam Hyperlipidemia;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 Reason for Exam Gout Result Comment: [place] Glucose Reference Range is dependent on time and content of last meal. Glucose of more than 200 mg/dL in a nonstressed, ambulatory subject supports the diagnosis of Diabetes Mellitus. ADA recommended reference range Performed By: #### T SH3, LDLD, CMP, URIC, LIPID #### [facility] [address] Potassium [Moles/Vol] 4.3 mmol/L Normal 3.5-5.1 [facility] Comment on above: Order Comment: Reaso n for Exam Hyperlipidemia;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 Reason for Exam Gout Performed By: #### T SH3, LDLD, CMP, URIC, LIPID #### [facility] [address] Protein [Mass/Vol] 7.0 g/dL Normal 6.4-8.9 [facility] Comment on above: Order Comment: Reaso n for Exam Hyperlipidemia;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 Reason for Exam Gout Performed By: #### T SH3, LDLD, CMP, URIC, LIPID #### [facility] [address] [place] [phone] [place] Sodium [Moles/Vol] 136 mmol/L Normal 136-145 [facility] Comment on above: Order Comment: Reaso n for Exam Hyperlipidemia;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 Reason for Exam Gout Performed By: #### T SH3, LDLD, CMP, URIC, LIPID #### [facility] [address] [place] [phone] [place] Urea nitrogen [Mass/Vol] 15 mg/dL Normal 7-25 [facility] Comment on above: Order Comment: Reaso n for Exam Hyperlipidemia;Type 2 diabetes mellitus with circulatory dis fasting Reason for Exam Gout Performed By: #### T SH3, LDLD, CMP, URIC, LIPID #### [facility] [address] Creatinine [Mass/volume] in Serum or PlasmaOrdered By: Jenaro Lynch on 09-27-2022 Creatinine [Mass/Vol] 1.84 mg/dL 0.70-1.30 [facility] Eosinophils Auto (Bld) [#/Vo l]Ordered By: Jenaor Lynch on 09-27-2022 Eosinophils (Bld) [#/Vol] 0.7 10*3/uL 0.0-0.45 [facility] Eosinophils/100 WBC Auto (Bl d)Ordered By: Jenaro Lynch on 09-27-2022 Eosinophils/100 WBC (Bld) 5.9 % . [facility] Erythrocyte distribution wid th Auto (RBC) [Ratio]Ordered By: Jenaro Lynch on 09-27-2022 Erythrocyte distribution width (RBC) [Ratio] 16.0 % 12.0-14.8 [facility] Globulin Calc (S) [Mass/Vol] Ordered By: Jenaro Lynch on 09-27-2022 Globulin (S) [Mass/Vol] 2.9 g/dL [facility] Glucose [Mass/volume] in Ser um or PlasmaOrdered By: Jenaro Lynch on 09-27-2022 Glucose [Mass/Vol] 225 mg/dL 70-100 [facility] Comment on above: ADA recommended refe rence rangeRandom Glucose Reference Range is dependent on time and content of last meal. Glucose of more than 200 mg/dL in a nonstressed, ambulatory subject supports the diagnosis of Diabetes Mellitus. Hematocrit Auto (Bld) [Volum e fraction]Ordered By: Jenaro Lynch on 09-27-2022 Hematocrit (Bld) [Volume fraction] 41.0 % 38.8-50.0 [facility] Hemoglobin [Mass/volume] in BloodOrdered By: Jenaro Lynch on 09-27-2022 Hemoglobin (Bld) [Mass/Vol] 13.2 g/dL 13.0-17.0 [facility] LDL Cholesterol Measuredon 0 09-27-2022 LDL Cholesterol Measured 38 mg/dL Normal 0-100 [facility] Comment on above: Order Comment: Reaso n [...] T SH3, LDLD, CMP, URIC, LIPID #### [facility] [address] [place] [id number] [facility] Leukocytes [#/volume] correc jorge for nucleated erythrocytes in Blood by Automated counOrdered By: Jenaro Lynch on 09-27-2022 WBC corrected for nucl RBC Auto (Bld) [#/Vol] 12.4 10*3/uL 4.1-10.5 [facility] Lipid Panelon 09-27-2022 Cholesterol [Mass/Vol] 104 mg/dL Low 140-200 [facility] Comment on above: Order Comment: Reaso n for Exam Hyperlipidemia;Type 2 diabetes mellitus with circulatory dis fasting Reason for Exam Gout Result Comment: Chol less than 200 mg/dl low risk Chol 201-239 mg/dl borderline risk Chol 240 mg/dl and greater high risk Performed By: #### T SH3, LDLD, CMP, URIC, LIPID #### [facility] [address] [place] [id number] [facility] Cholesterol in HDL [Mass/Vol] 21 mg/dL Low 29-71 [facility] Comment on above: Order Comment: Reaso n for Exam Hyperlipidemia;Type 2 diabetes mellitus with circulatory dis fasting Reason for Exam Gout Result Comment: HDL CHOL ATP-III CLASSIFICATION Cardiovascular Risk HDL > or equal to 60 mg/dL LOW HDL < 40 mg/dL HIGH Performed By: #### T SH3, LDLD, CMP, URIC, LIPID #### [facility] [address] [place] [id number] [place] Cholesterol.total/Chol esterol in HDL [Mass ratio] 5.0 {ratio} Normal <5.0 [facility] Comment on above: Order Comment: Reaso n for Exam Hyperlipidemia;Type 2 diabetes mellitus with circulatory dis fasting Reason for Exam Gout Performed By: #### T SH3, LDLD, CMP, URIC, LIPID #### [facility] [address] [place] [id number] [place] LDL Cholesterol,Calculated Not performed Normal 0-100 [facility] Comment on above: Order Comment: Reaso n for Exam Hyperlipidemia;Type 2 diabetes mellitus with circulatory dis fasting Reason for Exam Gout Performed By: #### T SH3, LDLD, CMP, URIC, LIPID #### [facility] [address] [place] [id number] [facility] Triglyceride w/Reflex 497 mg/dL High 0-149 [facility] Comment on above: Order Comment: Reaso n [...] T SH3, LDLD, CMP, URIC, LIPID #### [facility] [address] [place] [id number] [facility] VLDL CHOLESTEROL 99 mg/dL Normal [facility] Comment on above: Order Comment: Reaso n for Exam Hyperlipidemia;Type 2 diabetes mellitus with circulatory dis fasting Reason for Exam Gout Performed By: #### T SH3, LDLD, CMP, URIC, LIPID #### [facility] [address] [place] [id number] [facility] Lymphocytes Auto (Bld) [#/Vo l]Ordered By: Jenaro Lynch on 09-27-2022 Lymphocytes (Bld) [#/Vol] 2.3 10*3/uL 1.00-4.8 [facility] Lymphocytes/100 WBC Auto (Bl d)Ordered By: Jenaro Lynch on 09-27-2022 Lymphocytes/100 WBC (Bld) 18.2 % . [facility] MCH Auto (RBC) [Entitic mass ]Ordered By: Jenaro Lynch on 09-27-2022 MCH (RBC) [Entitic mass] 23.9 pg 27.5-35.2 [facility] MCHC Auto (RBC) [Mass/Vol]Or dered By: Jenaro Lynch on 09-27-2022 MCHC (RBC) [Mass/Vol] 32.2 g/dL 32.5-35.6 [facility] MCV Auto (RBC) [Entitic vol] Ordered By: Jenaro Lynch on 09-27-2022 MCV (RBC) [Entitic vol] 74.3 fL 83.5-101 [facility] Monocytes Auto (Bld) [#/Vol] Ordered By: Jenaro Lynch on 09-27-2022 Monocytes (Bld) [#/Vol] 1.0 10*3/uL 0.0-0.8 [facility] Monocytes/100 WBC Auto (Bld) Ordered By: Jenaro Lynch on 09-27-2022 Monocytes/100 WBC (Bld) 7.9 % . [facility] Neutrophils Auto (Bld) [#/Vo l]Ordered By: Jenaro Lynch on 09-27-2022 Neutrophils (Bld) [#/Vol] 8.3 10*3/uL 1.8-7.7 [facility] Neutrophils/100 WBC Auto (Bl d)Ordered By: Jenaro Lynch on 09-27-2022 Neutrophils/100 WBC (Bld) 66.9 % . [facility] No Panel InformationOrdered By: Jenaro Lynch on 09-27-2022 Estimated GFR (CKD-EPI) 42.232 mL/Min [facility] Creatinine Clearance (Chem N/A [facility] Nucleated erythrocytes [Pres ence] in Blood by Automated countOrdered By: Jenaro Lynch on 09-27-2022 Nucleated RBC Auto Ql (Bld) 0.1 /100{WBC} 0-0.5 [facility] Platelet mean volume Auto (B ld) [Entitic vol]Ordered By: Jenaro Lynch on 09-27-2022 Platelet mean volume (Bld) [Entitic vol] 9.1 fL 6.6-10.1 [facility] Platelets Auto (Bld) [#/Vol] Ordered By: Jenaro Lynch on 09-27-2022 Platelets (Bld) [#/Vol] 209 10*3/uL 150-450 [facility] Potassium [Moles/volume] in Serum or PlasmaOrdered By: Jenaro Lynch on 09-27-2022 Potassium [Moles/Vol] 4.3 mmol/L 3.5-5.1 [facility] Protein [Mass/volume] in Ser um or PlasmaOrdered By: Jenaro Lynch on 09-27-2022 Protein [Mass/Vol] 7.0 g/dL 6.4-8.9 [facility] RBC Auto (Bld) [#/Vol]Ordere d By: Jenaro Lynch on 09-27-2022 RBC (Bld) [#/Vol] 5.52 10*6/uL 3.90-5.60 [facility] Serum or plasma albumin/glob ulin mass ratioOrdered By: Jenaro Lynch on 09-27-2022 Albumin/Globulin [Mass ratio] 1.4 {ratio} [facility] Serum or plasma anion gap de terminationOrdered By: Jenaro Lynch on 09-27-2022 Anion gap [Moles/Vol] 14.1 mmol/L 6.0-15.0 [facility] Serum or plasma high density lipoprotein (HDL) cholesterol measurementOrdered By: Jenaro Lynch on 09-27-2022 Cholesterol in HDL [Mass/Vol] 21 mg/dL 29-71 [facility] Comment on above: HDL CHOL ATP-III CLA SSIFICATION Cardiovascular RiskHDL > or equal to 60 mg/dL LOWHDL < 40 mg/dL HIGH Serum or plasma total choles terol/high density lipoprotein (HDL) cholesterol mass ratOrdered By: Jenaro Lynch on 09-27-2022 Cholesterol.total/Chol esterol in HDL [Mass ratio] 5.0 {ratio} <5.0 [facility] Sodium [Moles/volume] in Ser um or PlasmaOrdered By: Jenaro Lynch on 09-27-2022 Sodium [Moles/Vol] 136 mmol/L 136-145 [facility] Thyroid Stimulating Hormoneo n 09-27-2022 TSH Qn 3.62 m[IU]/L Normal 0.45-5.33 [facility] Comment on above: Order Comment: Reaso n for Exam Hyperlipidemia;Type 2 diabetes mellitus with circulatory dis fasting Reason for Exam Gout Result Comment: [facility] [facility] [address] [place] [address] PATHOLOGIST ELECTRONICS ENGINEERING TECHNOLOGIST CLIFFORD LOBATO M.D. Performed By: #### T SH3, LDLD, CMP, URIC, LIPID #### [facility] [address] Order Comment: Reaso n for Exam Hyperlipidemia;Type 2 diabetes mellitus with circulatory dis fasting Reason for Exam Gout Performed By: #### T SH3, LDLD, CMP, URIC, LIPID ####[facility] [id number] Thyrotropin [Units/volume] i n Serum or PlasmaOrdered By: Jenaro Lynch on 09-27-2022 TSH Qn 3.62 m[IU]/L 0.45-5.33 [facility] Triglyceride [Mass/volume] i n Serum or PlasmaOrdered By: Jenaro Lynch on 09-27-2022 Triglyceride [Mass/Vol] 497 mg/dL 0-149 [facility] Comment on above: If the triglyceride [...] on 09-27-2022 Urate [Mass/Vol] 6.2 mg/dL 2.4-7.6 [facility] Urea nitrogen [Mass/volume] in Serum or PlasmaOrdered By: Jenaro Lynch on 09-27-2022 Urea nitrogen [Mass/Vol] 15 mg/dL 25 [facility] Uric Acidon 09-27-2022 Urate [Mass/Vol] 6.2 mg/dL Normal 2.4-7.6 [facility] Comment on above: Order Comment: Reaso n for Exam Hyperlipidemia;Type 2 diabetes mellitus with circulatory dis fasting Reason for Exam Gout Performed By: #### T SH3, LDLD, CMP, URIC, LIPID #### [facility] [address] [place] [address] [facility] WBC Auto (Bld) [#/Vol]Ordere d By: Jenaro Lynch on 09-27-2022 WBC (Bld) [#/Vol] 12.4 10*3/uL 4.1-10.5 [facility] A1C HEMOGLOBINon 02-15-2022 HbA1c (Bld) [Mass fraction] % [employer] Other HbA1c (Bld) [Mass fraction]o n 02-15-2022 A1C HEMOGLOBIN [place] [employer] Other Tobacco Screening.on 022 Adult depression screening assessment No [facility] [employer] y 250 DO Work Phone: Tobacco use status CPHS b) No [facility] [employer] y 250 DO Work Phone: A1C HEMOGLOBINon 07-27-2021 HbA1c (Bld) [Mass fraction] 11.8 % [employer] Other HbA1c (Bld) [Mass fraction]o n 07-27-2021 A1C HEMOGLOBIN [employer] Other Vital Signs Date Time Vital Sign Value Performing Clinician Facility 07-31-2023 12:00-0500 Diastolic blood pressure 63 mm[Hg] DO Jenaro Lynch Work Phone: [facility] 07-31-2023 12:00-0500 Heart rate 75 /min DO Jenaro Lynch Work Phone: [facility] 07-31-2023 12:00-0500 Systolic blood pressure 108 mm[Hg] DO Jenaro Lynch Work Phone: [facility] 07-31-2023 08:33-0500 Respiratory rate 18 /min DO Jenaro Lynch Work Phone: [facility] 07-12-2023 18:03-0500 Diastolic blood pressure 73 mm[Hg] DO Jenaro Lynch Work Phone: [facility] 07-12-2023 18:03-0500 Heart rate 76 /min DO Jenaro Jetts Work Phone: [facility] 07-12-2023 18:03-0500 Respiratory rate 20 /min DO Jenarogorge Fraustos Work Phone: [facility] 07-12-2023 18:03-0500 SaO2% (BldA) [Mass fraction] 98 % DO Jenarogorge Fraustos Work Phone: [facility] 07-12-2023 18:03-0500 Systolic blood pressure 125 mm[Hg] DO Jenaro Jetts Work Phone: [facility] 07-12-2023 16:15-0500 Body height 182.88 cm DO Jenaro Fraustos Work Phone: [facility] 07-12-2023 16:15-0500 Body temperature 98.9 [degF] DO Jenaro Fraustos Work Phone: [facility] 07-12-2023 16:15-0500 Body weight 99.25 kg DO Jenaro Lynch Work Phone: [facility] 06-02-2023 10:56-0500 Blood Pressure Location Yeyo ROWE [facility] 06-02-2023 10:56-0500 Body temperature 96.98 [degF] Yeyo ROWE [facility] 06-02-2023 10:56-0500 Diastolic blood pressure 84 mm[Hg] Yeyo ROWE [facility] 06-02-2023 10:56-0500 Heart rate 68 /min Yeyo ROWE [facility] 06-02-2023 10:56-0500 Systolic blood pressure 124 mm[Hg] Yeyo ROWE [facility] 04-06-2023 13:15-0400 Body height 180.34 cm Jenaro Lynch Other [employer] Other 04-06-2023 13:15-0400 Body mass index (BMI) [Ratio] 29.43 kg/m2 Jenaro Lynch Other [employer] Other 04-06-2023 13:15-0400 Body weight 95.71 kg Jenaro Lynch Other [employer] Other 04-06-2023 13:15-0400 Diastolic blood pressure 70 mm[Hg] Jenaro Lynch Other [employer] Other 04-06-2023 13:15-0400 Respiratory rate 18 /min Jenaro Lynch Other [employer] Other 04-06-2023 13:15-0400 SaO2% (BldA) [Mass fraction] 97 % Jenaro Lynch Other [employer] Other 04-06-2023 13:15-0400 Systolic blood pressure 100 mm[Hg] Jenaro Lynch Other [employer] Other 03-15-2023 08:30-0400 Body height 180.34 cm Jenaro Lynch Other [employer] Other 03-15-2023 08:30-0400 Body mass index (BMI) [Ratio] 29.01 kg/m2 Jenaro Lynch Other [employer] Other 03-15-2023 08:30-0400 Body weight 94.35 kg Jenaro Syed Other [employer] Other 03-15-2023 08:30-0400 Diastolic blood pressure 62 mm[Hg] Jenaro Jettjoe Other [place] [employer] Other 03-15-2023 08:30-0400 Respiratory rate 16 /min Jenaro Jettjoe Other [employer] Other 03-15-2023 08:30-0400 SaO2% (BldA) [Mass fraction] 97 % Jenaro Jettjoe Other [place] [employer] Other 03-15-2023 08:30-0400 Systolic blood pressure 88 mm[Hg] Jenaro Lynch Other [place] [employer] Other 02-15-2023 10:04-0400 Body height 182.88 cm Jenaro Guerra Syed Work Phone: [facility] [employer] 250 DO Work Phone: 02-15-2023 10:04-0400 Body mass index (BMI) [Ratio] 28.62 kg/m2 Jenaro Guerra Syed Work Phone: [facility] 250 DO Work Phone: 02-15-2023 10:04-0400 Body surface area Derived from formula 2.18 m2 Jenaro Guerra Syed Work Phone: [facility] 250 DO Work Phone: 02-15-2023 10:04-0400 Body weight 95.71 kg Jenaro Fraustos Work Phone: [facility] 250 DO Work Phone: 02-15-2023 10:04-0400 Diastolic blood pressure 70 mm[Hg] Jenaro P Kuns Work Phone: [facility] 250 DO Work Phone: 02-15-2023 10:04-0400 Heart rate 76 /min Jenaro Lynch Work Phone: [facility] 250 DO Work Phone: 02-15-2023 10:04-0400 Systolic blood pressure 102 mm[Hg] Jenaro Lynch Work Phone: [facility] 250 DO Work Phone: 01-30-2023 10:23-0400 Blood Pressure Location Yeyoneel ROWE [facility] 01-30-2023 10:23-0400 Diastolic blood pressure 74 mm[Hg] Yeyo ROWE [facility] 01-30-2023 10:23-0400 Heart rate 68 /min Yeyoneel ROWE [facility] 01-30-2023 10:23-0400 Respiratory rate 16 /min Yeyo ROWE [facility] 01-30-2023 10:23-0400 Systolic blood pressure 130 mm[Hg] Yeyo ROWE [facility] 01-11-2023 15:08-0400 Body height 180.34 cm Jenaro Lynch Work Phone: [facility] 600 DO Work Phone: 01-11-2023 15:08-0400 Body mass index (BMI) [Ratio] 30.13 kg/m2 Jenaro Lynch Work Phone: [facility] 600 DO Work Phone: 01-11-2023 15:08-0400 Body surface area Derived from formula 2.18 m2 Jenaro Lynch Work Phone: [facility] [employer] 600 DO Work Phone: 01-11-2023 15:08-0400 Body weight 97.98 kg Jenaro Lynch Work Phone: [facility] [employer] 600 DO Work Phone: 01-11-2023 15:08-0400 Diastolic blood pressure 86 mm[Hg] Jenaro Guerra Syed Work Phone: [facility] [employer] 600 DO Work Phone: 01-11-2023 15:08-0400 Heart rate 74 /min Jenaro Lynch Work Phone: [facility] [employer] 600 DO Work Phone: 01-11-2023 15:08-0400 Systolic blood pressure 122 mm[Hg] Jenaro Mari Lynch Work Phone: [facility] [employer] 600 DO Work Phone: 12-01-2022 12:45-0400 Body height 180.34 cm Jenaro Lynch Other [employer] Other 12-01-2022 12:45-0400 Body mass index (BMI) [Ratio] 29.73 kg/m2 Jenaro Lynch Other [employer] [facility] [employer] Other 12-01-2022 12:45-0400 Body weight 96.71 kg Jenaro Lynch Other [employer] Other 12-01-2022 12:45-0400 Diastolic blood pressure 70 mm[Hg] Jenaro Lynch Other [employer] Other 12-01-2022 12:45-0400 Respiratory rate 18 /min Jenaro Lynch Other [employer] Other 12-01-2022 12:45-0400 SaO2% (BldA) [Mass fraction] 94 % Jenaro Lynch Other [employer] Other 12-01-2022 12:45-0400 Systolic blood pressure 122 mm[Hg] Jenaro Lynch Other [employer] Other 11-23-2022 11:38-0400 Blood Pressure Location Yeyo [employer] [facility] 11-23-2022 11:38-0400 Diastolic blood pressure 85 mm[Hg] [employer]o [employer] [facility] 11-23-2022 11:38-0400 Heart rate 76 /min [employer]o [employer] [facility] 11-23-2022 11:38-0400 Systolic blood pressure 130 mm[Hg] Yeyo ROWE [facility] 07-04-2022 10:30-0500 Body height 180.34 cm Jenaro Lynch Other [employer] Other 07-04-2022 10:30-0500 Body mass index (BMI) [Ratio] 29.43 kg/m2 Jenaro Lynch Other [employer] Other 07-04-2022 10:30-0500 Body weight 95.71 kg Jenaro Lynch Other [employer] Other 07-04-2022 10:30-0500 Diastolic blood pressure 86 mm[Hg] Jenaro Lynch Other [employer] Other 07-04-2022 10:30-0500 Respiratory rate 16 /min Jenaro Lynch Other [employer] Other 07-04-2022 10:30-0500 Systolic blood pressure 146 mm[Hg] Jenaro Lynch Other [employer] Other 02-15-2022 13:45-0400 Body height 180.34 cm Jenaro Lynch Other [employer] Other 02-15-2022 13:45-0400 Body mass index (BMI) [Ratio] 30.12 kg/m2 Jenaro Lynch Other [employer] Other 02-15-2022 13:45-0400 Body weight 97.98 kg Jenaro Lynch Other [employer] Other 02-15-2022 13:45-0400 Diastolic blood pressure 62 mm[Hg] Jenaro Lynch Other [employer] Other 02-15-2022 13:45-0400 Respiratory rate 16 /min Jenaro Lynch Other [employer] Other 02-15-2022 13:45-0400 SaO2% (BldA) [Mass fraction] 96 % Jenaro Lynch Other [employer] Other 02-15-2022 13:45-0400 Systolic blood pressure 100 mm[Hg] Jenaro Lynch Other [employer] Other 10-26-2021 10:01-0400 Body height 180.34 cm Jenaro Lynch Work Phone: [facility] 250 DO Work Phone: 10-26-2021 10:01-0400 Body mass index (BMI) [Ratio] 29.99 kg/m2 Jenaro Lynch Work Phone: [facility] 250 DO Work Phone: 10-26-2021 10:01-0400 Body surface area Derived from formula 2.17 m2 Jenaro Lynch Work Phone: [facility] 250 DO Work Phone: 10-26-2021 10:01-0400 Body weight 97.52 kg Jenaro Lynch Work Phone: [facility] 250 DO Work Phone: 10-26-2021 10:01-0400 Diastolic blood pressure 70 mm[Hg] Jenarogorge Lynch Work Phone: [facility] 250 DO Work Phone: 10-26-2021 10:01-0400 Heart rate 68 /min Jenaro Lynch Work Phone: [facility] 250 DO Work Phone: 10-26-2021 10:01-0400 Systolic blood pressure 104 mm[Hg] Jenaro Mari Lynch Work Phone: [facility] 250 DO Work Phone: 10-19-2021 12:20-0400 Body height 180.34 cm Amina Meddledariusjoe Other [employer] Other 10-19-2021 12:20-0400 Body mass index (BMI) [Ratio] 30.65 kg/m2 [employer] Other [employer] Other 10-19-2021 12:20-0400 Body temperature 96.8 [degF] Amina Fagan Other [employer] Other 10-19-2021 12:20-0400 Body weight 99.7 kg Amina Fagan Other [employer] Other 10-19-2021 12:20-0400 Diastolic blood pressure 71 mm[Hg] Amina Fagan Other [employer] Other 10-19-2021 12:20-0400 Respiratory rate 18 /min Amina Fagan Other [employer] Other 10-19-2021 12:20-0400 SaO2% (BldA) [Mass fraction] 98 % Amina Fagan Other [employer] Other 10-19-2021 12:20-0400 Systolic blood pressure 111 mm[Hg] Amina Fagan Other [employer] Other 07-27-2021 14:00-0500 Body height 180.34 cm Jenaro Syed Other [employer] Other 07-27-2021 14:00-0500 Body mass index (BMI) [Ratio] 30.4 kg/m2 Jenaro Lynch Other [employer] Other 07-27-2021 14:00-0500 Body weight 98.88 kg Jenaro Lynch Other [employer] Other 07-27-2021 14:00-0500 Diastolic blood pressure 76 mm[Hg] Jenaro Lynch Other [employer] Other 07-27-2021 14:00-0500 Respiratory rate 18 /min Jenaro Lynch Other [employer] Other 07-27-2021 14:00-0500 SaO2% (BldA) [Mass fraction] 98 % Jenaro Syed Other [employer] Other 07-27-2021 14:00-0500 Systolic blood pressure 112 mm[Hg] Jenaro Syed Other [place] [employer] Other Encounters Encounter Date Encounter Type Care Provider Facility Start: 09-21-2023 End: 09-21-2023 ambulatory Fredy Hooker [facility] Facility:[facility] Start: 09-21-2023 End: 09-21-2023 ambulatory DO Jenaro Lynch Work Phone: [facility] Work Phone: Start: 09-21-2023 End: 09-21-2023 Departed Referred DO Jenaro Lynch Work Phone: [facility] Start: 09-18-2023 Non-patient / Non-visit DO Phillip Lynch [facility] Phone[facility] Work Phone: Start: 09-08-2023 End: 09-09-2023 ambulatory Yeyo ROWE Facility:[facility] Start: 09-08-2023 End: 09-08-2023 Patient encounter procedure Yeyo ROWE [facility] Start: 08-10-2023 Non-patient / Non-visit DO Phillip Lynch Work Phone[facility] Work Phone: Start: 08-08-2023 Non-patient / Non-visit DO Phillip an Kuns Work Phone: [facility] Work Phone: Start: 08-07-2023 Non-patient / Non-visit DO Phillip an Kuns Work Phone: [facility] Work Phone: Start: 08-06-2023 Non-patient / Non-visit DO Phillip an Kuns Work Phone: [facility] Work Phone: Start: 08-05-2023 Non-patient / Non-visit DO Phillip an Kuns Work Phone: [facility] Work Phone: Start: 08-04-2023 Non-patient / Non-visit DO Phillip an Kuns Work Phone: [facility] Work Phone: Start: 08-03-2023 Non-patient / Non-visit DO Phillip an Jetts Work Phone: [facility] Work Phone: Start: 07-31-2023 ambulatory Jenaro Lynch Facility:[facility] Start: 07-31-2023 Registered Recurring DO Jenaro Jettjoe Work Phone: [facility] Work Phone: Start: 07-26-2023 Non-patient / Non-visit DO Phillip an Kuns Work Phone: [facility] Work Phone: Start: 07-12-2023 End: 07-12-2023 Emergency department patient visit Jenaro Lynch Facility:[facility] Start: 07-12-2023 End: 07-12-2023 Emergency department patient visit DO Jenaro Lynch Work Phone: [facility] Work Phone: Start: 07-07-2023 End: 07-07-2023 ambulatory Jenaro Fraustojoe Other [employer] Other Start: 07-07-2023 Telephone encounter [facility] Start: 07-03-2023 End: 07-04-2023 ambulatory Yeyo ROWE Facility:[facility] Start: 06-26-2023 End: 06-26-2023 ambulatory Jenaro Lynch Other [employer] Other Start: 06-26-2023 Telephone encounter Jenaro Lynch [facility] Start: 06-02-2023 End: 06-03-2023 ambulatory Yeyo ROWE Facility: [facility] Start: 06-02-2023 End: 06-02-2023 Patient encounter procedure Yeyo ROWE [facility] Start: 05-16-2023 End: 05-16-2023 ambulatory Jenaro Lynch Other [employer] Other Start: 05-16-2023 Telephone encounter Jenaro Lynch [facility] Start: 05-03-2023 End: 05-04-2023 ambulatory Yeyo ROWE Facility: [facility] Start: 05-03-2023 End: 05-03-2023 Patient encounter procedure [facility] ROWE [facility] Start: 04-28-2023 End: 04-28-2023 ambulatory Jenaro Fraustojoe Other [employer] Other Start: 04-28-2023 Telephone encounter Jenaro Lynch [facility] Start: 04-18-2023 End: 04-19-2023 ambulatory Yeyo ROWE Facility:[facility] Start: 04-18-2023 End: 04-18-2023 Patient encounter procedure Yeyo ROWE [facility] Start: 04-17-2023 ambulatory Yeyo ROWE Facili ty:[facility] Start: 04-13-2023 End: 04-14-2023 ambulatory Yeyo ROWE Facility:[id number] Start: 04-11-2023 End: 04-11-2023 ambulatory Jenaro Fraustojeo Other [employer] Other Start: 04-11-2023 Telephone encounter Jenaro Lynch [facility] Start: 04-06-2023 End: 04-06-2023 ambulatory Jenaro Lynch Other [employer] Other Start: 04-06-2023 Encounter for other preprocedural examination Jenaro Lynhc [facility] [place] Start: 04-06-2023 Office outpatient vi sit 25 minutes Jenaro Lynch [facility] [place] Start: 03-28-2023 End: 03-28-2023 ambulatory Jenaro Lynch Other [employer] Other Start: 03-28-2023 Telephone encounter Jenaro Lynch [facility] [place] Start: 03-20-2023 ambulatory Yeyo ROWE Facili ty:[facility] Start: 03-16-2023 ambulatory Yeyo ROWE Facili ty:[id number] Start: 03-15-2023 End: 03-15-2023 ambulatory Jenaro Lynch Other [employer] Other Start: 03-15-2023 Office outpatient vi sit 25 minutes Jenaro Lynch [facility] [place] Start: 03-10-2023 End: 03-10-2023 ambulatory Jenaro Lynch Other [employer] Other Start: 03-10-2023 Telephone encounter Jenaro Lynch [facility] [place] Start: 02-15-2023 Office outpatient vi sit 15 minutes Jenaro Lynch Work Phone: [facility] 250 DO Work Phone: Start: 02-15-2023 ambulatory Dolores Feldman Facility:[id number] Start: 02-14-2023 End: 02-15-2023 ambulatory Yeyoneel ROWE [facility] Start: 02-14-2023 End: 02-14-2023 Patient encounter procedure Yeyo ROWE [facility] Start: 02-08-2023 End: 02-09-2023 ambulatory Yeyo ROWE [facility] Start: 02-08-2023 End: 02-08-2023 Patient encounter procedure Yeyo ROWE [facility] Start: 01-30-2023 End: 01-31-2023 ambulatory Yeyoneel ROEW Facility:[facility] Start: 01-30-2023 End: 01-30-2023 Patient encounter procedure Yeyo ROWE [facility] Start: 01-25-[address] Jenaro Lynch Facility:[id number] Start: 01-17-2023 End: 01-17-2023 ambulatory Jenaro Lynch Other [employer] [facility] [employer] Other Start: 01-17-2023 Telephone encounter [facility] Start: 01-11-2023 Office outpatient vi sit 25 minutes Jenaro Lynch Work Phone: [facility] 600 DO Work Phone: Start: 01-11-2023 ambulatory Dolores Feldman Facility:[id number] Start: 12-28-2022 End: 12-29-2022 ambulatory Yeyo ROWE Facility:[facility] Start: 12-28-2022 End: 12-28-2022 Patient encounter procedure Yeyo ROWE [facility] Start: 12-21-2022 ambulatory Yeyo ROWE Facili ty:[facility] Start: 12-01-2022 End: 12-01-2022 ambulatory Jenaro Lynch Other [employer] Other Start: 12-01-2022 Office outpatient vi sit 25 minutes Jenaro Lynch [facility] Start: 11-30-2022 ambulatory Yeyo ROWE Facility :[facility] Start: 11-23-2022 End: 11-24-2022 ambulatory Yeyo ROWE Facility:[facility] Start: 11-23-2022 End: 11-23-2022 Patient encounter procedure Yeyo ROWE [facility] Start: 10-07-2022 End: 10-07-2022 ambulatory Jenaro Lynch Other [employer] Other Start: 10-07-2022 Telephone encounter Jenaro Lynch [facility] Start: 09-27-2022 End: 09-27-2022 ambulatory Jenaro Lynch [facility] Facility:[facility] Start: 09-27-2022 End: 09-27-2022 ambulatory DO Jenaro Lynch Work Phone: [facility] Work Phone: Start: 09-27-2022 End: 09-27-2022 Patient encounter procedure DO Jenaro Lynch Work Phone: [facility] [place] Work Phone: Start: 09-21-2022 End: 09-21-2022 ambulatory Jenaro Fraustojoe Other [employer] Other Start: 09-21-2022 Telephone encounter Jenaro Syed [facility] [place] Start: 09-14-2022 End: 09-14-2022 ambulatory Jenaro Fraustojoe Other [employer] Other Start: 09-14-2022 Telephone encounter Jenaro Lynch [facility] [place] Start: 09-02-2022 End: 09-02-2022 Patient encounter procedure DO Jenaro Syed Work Phone: [facility] Main [place] Work Phone: Start: 08-25-2022 End: 08-25-2022 ambulatory Tona Mapus Other [employer] Other Start: 08-25-2022 Telephone encounter Akinmaría Mapus [facility] Start: 08-22-2022 End: 08-22-2022 ambulatory Jenaro Lynch Other [employer] Other Start: 08-22-2022 Telephone encounter Jenaro Syed [facility] Start: 08-05-2022 End: 08-05-2022 ambulatory Jenaro Lynch Other [employer] Other Start: 08-05-2022 Telephone encounter Jenaro Syed [facility] [place] Start: 08-04-2022 End: 08-04-2022 ambulatory Jenaro Lynch Other [employer] Other Start: 08-04-2022 Telephone encounter Jenaro Lynch [facility] [place] Start: 07-28-2022 End: 07-28-2022 ambulatory Jenaro Lynch Other [employer] Other Start: 07-28-2022 Telephone encounter Jenaro Lynch [facility] Start: 07-25-2022 End: 07-25-2022 ambulatory Jenaro Lynch Other [employer] Other Start: 07-25-2022 Nursing evaluation o f patient and report Jenaro Lynch [facility] [place] Start: 07-19-2022 End: 07-19-2022 ambulatory Jenaro Lynch Other [employer] Other Start: 07-19-2022 Telephone encounter Jenaro Lynch [facility] [place] Start: 07-15-2022 End: 07-15-2022 ambulatory Jenaro Lynch Other [employer] Other Start: 07-15-2022 Telephone encounter Jenaro Lynch [facility] [place] Start: 07-13-2022 End: 07-13-2022 ambulatory Jenaro Lynch Other [employer] Other Start: 07-13-2022 Nursing evaluation o f patient and report Jenaro Lynch [facility] [place] Start: 07-12-[address] [facility] Start: 07-05-2022 End: 07-05-2022 ambulatory Jenaro Lynch Other [employer] Other Start: 07-05-2022 Telephone encounter Jenaro Lynch [facility] [place] Start: 07-05-2022 Rx Renewal Jenaro Lynch Work Phone: [facility] 250 DO Work Phone: Start: 07-04-2022 End: 07-04-2022 ambulatory Jenaro Lynch Other [employer] Other Start: 07-04-2022 Office outpatient vi sit 25 minutes Jenaro Lynch [facility] [place] Start: 06-30-2022 End: 06-30-2022 ambulatory Jenaro Lynch Other [employer] Other Start: 06-30-2022 Telephone encounter Jenaro Lynch [facility] [place] Start: 05-25-2022 End: 05-25-2022 ambulatory Jenaro Lynch Other [employer] Other Start: 05-25-2022 Telephone encounter Jenaro Lynch [facility] [place] Start: 04-25-2022 End: 04-25-2022 ambulatory Jenaro Lynch Other [employer] Other Start: 04-25-2022 Telephone encounter Jenaro Lynch [facility] [place] Start: 04-19-2022 End: 04-19-2022 ambulatory Jenaro Lynch Other [employer] Other Start: 04-19-2022 Telephone encounter Jenaro Lynch [facility] [place] Start: 03-22-2022 End: 03-22-2022 ambulatory Jenaro Lynch Other [employer] Other Start: 03-22-2022 Telephone encounter Jenaro Lynch [facility] [place] Start: 03-01-2022 End: 03-01-2022 ambulatory Jenaro Lynch Other [employer] Other Start: 03-01-2022 Telephone encounter Jenaro Lynch [facility] [place] Start: 02-18-2022 End: 02-18-2022 ambulatory Jenaro Lynch Other [facility] Other Start: 02-18-2022 Telephone encounter Jenaro Lynch [facility] [place] Start: 02-15-2022 End: 02-15-2022 ambulatory Verona Whaley Other [facility] Other Start: 02-15-2022 Office outpatient vi sit 25 minutes Jenaro Lynch [facility] [place] Start: 02-15-2022 Telephone encounter Verona Whaley Na[facility] Start: 01-21-2022 End: 01-21-2022 ambulatory Jenaro Lynch Other [facility] Other Start: 01-21-2022 Telephone encounter Jenaro Lynch [facility] [place] Start: 01-19-2022 End: 01-19-2022 ambulatory Jenaro Lynch Other [facility] Other Start: 01-19-2022 Telephone encounter Jenaro Lynch [facility] [place] Start: 01-13-2022 End: 01-13-2022 ambulatory Jenaro Lynch Other [facility] Other Start: 01-13-2022 Telephone encounter Jenaro Lynch [facility] [place] Start: 12-23-2021 End: 12-23-2021 ambulatory Jenaro Lynch Other [facility] Other Start: 12-23-2021 Telephone encounter Jenaro Lynch [facility] [place] Start: 11-24-2021 End: 11-24-2021 ambulatory Jenaro Lynch Other [facility] Other Start: 11-24-2021 Telephone encounter Jenaro Lynch [facility] [place] Start: 11-03-2021 Rx Renewal Jenaro Lynch Work Phone: [facility] 250 DO Work Phone: Start: 10-26-2021 Office outpatient vi sit 25 minutes Jenaro Lynch Work Phone: [facility] 250 DO Work Phone: Start: 10-25-2021 End: 10-25-2021 ambulatory Jenaro Lynch Other [facility] Other Start: 10-25-2021 Telephone encounter Jenaro Lynch [facility] [place] Start: 10-19-2021 End: 10-19-2021 ambulatory Amina Kinseys Other [facility] Other Start: 10-19-2021 Office outpatient vi sit 25 minutes Aziz Bakhous [facility] Start: 10-18-2021 End: 10-18-2021 ambulatory Aziz Bakhous Other [facility] Other Start: 10-18-2021 Telephone encounter Azjuan Tonyhous [facility] Start: 10-12-2021 End: 10-13-2021 ambulatory DUARTE HENRY . Facility: Start: 10-08-2021 End: 10-08-2021 ambulatory Jenaro Lynch Other [facility] Other Start: 10-08-2021 Telephone encounter Jenaro Lynch [facility] Start: 09-22-2021 End: 09-22-2021 ambulatory Jenaro Lynch Other [facility] Other Start: 09-22-2021 Telephone encounter Jenaro Lynch [facility] Start: 09-21-2021 End: 09-21-2021 ambulatory Jenaro Lynch Other [facility] Other Start: 09-21-2021 Telephone encounter Jenaro Lynch [facility] Start: 08-09-2021 End: 08-09-2021 ambulatory Jenaro Lynch Other [facility] Other Start: 08-09-2021 Telephone encounter Jenaro Lynch [facility] Start: 08-02-2021 End: 08-02-2021 ambulatory Jenaro Lynch Other [facility] Other Start: 08-02-2021 Telephone encounter Jenaro Lynch [facility] Start: 07-27-2021 End: 07-27-2021 ambulatory Jenaro Lynch Other [facility] Other Start: 07-27-2021 Office outpatient vi sit 25 minutes Jenaro Lynch [facility] Start: 06-23-2021 End: 06-23-2021 ambulatory Jenrao Lynch Other [facility] Other Start: 06-23-2021 Telephone encounter Jenaro Lynch [facility] Start: 06-22-2021 Rx Renewal Jenaro Lynch Work Phone: [facility] 250 DO Work Phone: Start: 05-03-2021 End: 05-03-2021 ambulatory Jenaro Lynch Other [facility] Other Start: 05-03-2021 Telephone encounter Jenaro Lynch [facility] Procedures Date Procedure Procedure Detail Performing Clinician Start: 08-10-2023 Acid Fast Smear DO Jose Angel Lynch Work Phone: Start: 08-10-2023 AFB Specimen Processing DO Jenaro Lynch Work Phone: Start: 08-10-2023 Microscopic observat ion [Identifier] in Unspecified specimen by Gram stain DO Jenaro Fraustos Work Phone: Start: 08-10-2023 Tissue Culture DO Jenaro Lynch Work Phone: Start: 08-05-2023 Microscopic observat ion [Identifier] in Unspecified specimen by Gram stain DO Jenaro Jetts Work Phone: Start: 08-04-2023 Blood Culture 1 DO Phillipa n Kuns Work Phone: Start: 08-04-2023 Blood Culture 2 DO Jose Angel Lynch Work Phone: Start: 08-04-2023 Microscopic observat ion [Identifier] in Unspecified specimen by Gram stain DO Jenaro Lynch Work Phone: Start: 08-04-2023 Wound Culture DO Jenaro Lynch Work Phone: Start: 08-03-2023 Blood Culture 1 DO Jose Angel Lynch Work Phone: Start: 08-03-2023 Blood Culture 2 DO Jose Angel Lynch Work Phone: Start: 07-12-2023 Duplex scan of lower limb veins DO Jenaro Lynch Work Phone: Start: 07-12-2023 Duplex scan veins of upper limb DO Jenaro Lynch Work Phone: Start: 07-12-2023 Plain chest X-ray DO Livia Lynch Work Phone: Start: 04-13-2023 Transurethral prostatectomy Yeyoneel ROWE Start: 02-14-2023 Transurethral cystoscopy Yeyo ROWE Start: 09-02-2022 MRI of head DO Jenaro shi Work Phone: Start: 06-05-2006 Total colonoscopy Jenaro Mari Lynch Work Phone: Appendectomy Jenaro Lynch Work Phone: Appendectomy Yeyoneel ROWE Bilateral Carpal Timothy uli Surgery Yeyo ROWE Bilateral Eye Surgery 1 Stephanier genaro ROWE Comment on above: bilateral cataracts [...] Lynch Work Phone: Procedure on back Jenaro Claudio ns Work Phone: Comment on above: nerve ablation; Procedure on back Yeyo DOSHI Scrotum and testicle operation Jenaro Lynch Work Phone: Plan of Treatment Date Care Activity Detail Author Start: 11-15-2023 FUV, Provider: Raulito Inman, Status: Pen, Time: 2:40 PM FUV, Provider: Raulito Inman, Status: Pen, Time: 2:40 PM [facility] 250 DO Work Phone: Start: 08-10-2023 Acid Fast Culture Acid Fast Culture [facility] Start: 08-05-2023 Wound Culture Wound Culture [facility] Start: 07-12-2023 Duplex scan of lower limb veins US venous duplex LE BI [facility] Start: 07-12-2023 US Lower extremity v ein - bilateral [facility] Start: 07-12-2023 Duplex scan veins of upper limb US venous duplex UE LT [facility] Start: 07-12-2023 US Upper extremity v ein - left [facility] Start: 02-15-2023 FUV, Provider: Dolores Velazquez, Status: Pen, Time: 10:00 AM FUV, Provider: Dolores Velazquez, Status: Pen, Time: 10:00 AM [facility] DO Work Phone: Start: 01-25-2023 STRESS NUC, Provider : CHARISSE PEMBERTONI NUCLEAR 01,[id number], Status: Pen, Time: 8:30 AM STRESS NUC, Provider: CHARISSE PEMBERTONI NUCLEAR 01,[id number], Status: Pen, Time: 8:30 AM [facility] 600 DO Work Phone: Start: 07-12-2022 FUV, Provider: Raulito Inman, Status: Pen, Time: 9:20 AM FUV, Provider: Raulito Inman, Status: Pen, Time: 9:20 AM [facility] 250 DO Work Phone: Start: 10-26-2021 FUV, Provider: Raulito Inman, Status: Pen, Time: 9:30 AM FUV, Provider: Raulito Inman, Status: Pen, Time: 9:30 AM [facility] 250 DO Work Phone: Patient Education Dependent Edema (DC) [facility] Work Phone: Patient referral [facility] Work Phone: Immunizations Immunization Date Immunization Notes Care Provider Sachin pettit 11-13-2020 Pfizer-BioNTech COVI D-19 Vacc 30 MCG/0.3ML Intramuscular Suspension Jenaro Lynch Work Phone: [facility] 10-23-2020 Pfizer-BioNTech COVI D-19 Vacc 30 MCG/0.3ML Intramuscular Suspension Jenaro Lynch Work Phone: [facility] 01-14-2019 influenza, seasonal, injectable Jenaro Lynch Other [facility] 01-14-2019 influenza virus vacc ine, unspecified formulation Yeyo ROWE [facility] 04-02-2018 influenza virus vacc ine, unspecified formulation Yeyo ROWE [facility] 04-02-2018 influenza, injectabl e, quadrivalent, preservative free DO Jenaro Lynch Work Phone: [facility] 03-05-2018 influenza virus vacc ine, unspecified formulation Jenaro Lynch Work Phone: [facility] 250 DO Work Phone: 03-05-2018 pneumococcal polysaccharide vaccine, 23 valent Jenaro Lynch Work Phone: [facility] 250 DO Work Phone: 03-07-2016 influenza virus vacc ine, unspecified formulation Yeyo ROWE [facility] 03-07-2016 influenza, injectabl e, quadrivalent, preservative free Jenaro Lynch Work Phone: [facility] 600 DO Work Phone: 02-22-2016 pneumococcal polysaccharide vaccine, 23 valent Jenaro Lynch Work Phone: [facility] Payers Date Payer Category Payer Self-pay [id number] 2022 Medicaid [id number] 1965 Unknown [id number] 2.16.84 0.1.605513.3.579.2.593 1965 Unknown [id number] .16.8 40.1.739398.3.579.2.1068 1965 Unknown [id number] 2.16. 840.1.947553.3.579.2.356 1965 Unknown [id number] 2.16. 840.1.415474.3.579.2.356 1965 Unknown [id number] 2.16. 840.1.337483.3.579.2.356 1965 Unknown [id number] 2.16.8 40.1.983194.3.579.2.727 1965 Unknown [id number] 2.16.8 40.1.698338.3.579.2.72 1965 Unknown [id number] 2.16.8 40.1.785890.3.579.2 1965 Unknown [id number] 2.16.8 40.1.421705.3.579.2. 1965 Unknown [id number] 2.16.8 40.1.067312.3.579.2 1965 Unknown [id number] 2.16.8 40.1.457609.3.579.2 1965 Unknown [id number] 2.16.8 40.1.213133.3.579.2 1965 Unknown [id number] 2.16.8 40.1.447055.3.579.2 1965 Unknown [id number] 2.16.8 40.1.391244.3.579.2 1965 Unknown [id number] 2.16.8 40.1.143232.3.579.2 1965 Unknown [id number] 2.16.8 40.1.035576.3.579.2 1965 Unknown [id number] 2.16.8 40.1.229112.3.579.2 1965 Unknown [id number] 2.16.8 40.1.317683.3.579.2 1965 Unknown [id number] 2.16.8 40.1.673260.3.579.2. 1965 Unknown [id number] 2.16.8 40.1.658165.3.579.2.727 1959 Unknown [id number] 2.1 6.840.1.525529.19 Unknown [employer] Unknown [id number] 2.16.8 40.1.615888.3.579.2.531 Unknown [id number] 2.16.8 40.1.766624.3.579.2.531 Unknown [id number] 2.16.8 40.1.103585.3.579.2.531 Unknown [id number] 2.16.8 40.1.880313.3.579.2.531 Social History Date Type Detail Facility Caffeine use Caffeine use [facility] Other Comment on above: 2 cups coffee, 4-6 c ups tea daily, occaional soda; qauit 07/2020; Sex Assigned At [facility] Start: 07-14-2020 End: 07-12-2023 Tobacco smoking status NHIS Smoker (finding) [facility] Start: 1965 Sex Assigned At Male F [facility] Start: 11-23-2022 End: 06-02-2023 Tobacco smoking status Heavy tobacco smoker (finding) [facility] Tobacco smoking status Never [facility] Medical Equipment Procedure Code Equipment Code Equipment [...] bilia ry stentMultiple peripheral artery stent, bare-metal ()[id number] [facility] Start: 07-14-2020 Functional Status Date Assessment Result Facility 06-02-2023 Functional Status N/A [facility] 02-14-2023 Functional Status N/A [facility] 01-30-2023 Functional Status N/A [facility] 11-23-2022 Functional Status N/A [facility] Clinical Notes 06-23-2021 to 07-13-2023 Note Date & Type Note Facility 07-13-2023 Hospital Discharg e instructions Follow Up Care 07/13/2023 12:04:02 With:SOLEDAD HERRERA, Yeyo Blum, URL Address: [address] [place] [address] [place] [address]- When: Unknown [facility] [facility] 06-26-2023 Evaluation note Encounter Date Diagnosis Assessment Notes Jun, Hyperlipidemia (ICD-10 - E78.5) [facility] Other 12-29-2023 Hospital Discharge instructions Patient Education [...] urethra. Follow these instructions at home: Take glwg-vho-sospyzc and prescription medicines only as told by [...] provider. Document Revised: 12/08/2021 Document Reviewed: 12/08/2021 [employer] Patient Education 2022 [employer] Follow Up Care 06/01/2023 14:05:36 With:SOLEDAD HERRERA, Yeyo Blum, URL Address: [address] [place] [address]- When: Unknown [facility] 12-12-2023 Evaluation note* Encounter Date Diagnosis Assessment Notes Treatment Notes Treatment Clinical Notes May, 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) [facility] Other 11-24-2023 Evaluation note* Encounter Date Diagnosis Assessment Notes Treatment Notes Treatment Clinical Notes Apr, Diabetic nephropathy (ICD-10 - E11.21) [facility] Other 11-07-2023 Evaluation note* Encounter Date Diagnosis Assessment Notes Treatment Notes Treatment Clinical Notes Apr, Left arm pain (ICD-10 - M79.602) [facility] Other 11-02-2023 Evaluation note* Encounter Date Diagnosis [...] and to have his surgery as scheduled. 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 He was found to have developed [...] to continue to montior this at home. [employer] Other 10-09-2023 Note [id number]23 [id number]:127[facility]09-12-2023 Note [id number]:127[facility] 02-14-2023 Hospital Discharge instructions Patient Education [...] including vitamins, herbs, eye drops, creams, and iwnk-ncc-ynoauwm medicines. Any problems you or family members [...] provider tells you to take them. Taking ghoe-nlz-dgcxzcz medicines, vitamins, herbs, and supplements. Surgery safety [...] provider. Document Revised: 02/15/2022 Document Reviewed: 02/15/2022 [employer] Patient Education 2022 [employer]. [facility]08-28-2023 Hospital Discharge instructions Patient Education [...] including vitamins, herbs, eye drops, creams, and kbyd-lfy-brljlsc medicines. ?Whether you are or may be [...] provider. Document Revised: 02/02/2022 Document Reviewed: 12/25/2020 [employer] Patient Education 2022 [employer]. 01/30/2023 11:22:30 Cystoscopy Cystoscopy Cystoscopy is a [...] including vitamins, herbs, eye drops, creams, and mqtt-wua-pdoncnd medicines. Any problems you or family members [...] provider tells you to take them. Taking rxcg-uly-cjxxkjj medicines, vitamins, herbs, and supplements. Tests You [...] care provider can clearly examine your bladder wesis. Your doctor will look at the urethra [...] Follow these instructions at home: Medicines Take lhve-mlb-odydcds and prescription medicines only as told by [...] provider. Document Revised: 02/02/2022 Document Reviewed: 01/01/2021 [employer] Patient Education 2022 [employer]. Follow Up Care 11/23/2022 13:02:56 With:SOLEDAD HERRERA, Yeyo Blum, URL Address: [facility] [address] , [place] [address]- [phone] When: Unknown Comments:sched cysto/uros [facility] 08-15-2023 Evaluation note* Encounter Date Diagnosis Assessment Notes Treatment Notes Treatment Clinical Notes Jan, Diabetic nephropathy (ICD-10 - E11.21) [facility] Other 06-29-2023 Evaluation note* Encounter Date Diagnosis [...] reviewed. 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 [facility] Other 06-21-2023 Hospital Discharge instructions Patient Education [...] provider. Document Revised: 08/11/2021 Document Reviewed: 05/07/2021 [employer] Patient Education 2021 [employer]. Follow Up Care 09/14/2022 14:23:26 With:SOLEDAD HERRERA, Yeyo Blum, URL Address: [facility] [address] , [place] [address]- When: Unknown [facility] 05-05-2023 Evaluation note* Encounter Date Diagnosis Assessment Notes Treatment Notes Treatment Clinical Notes October, Erectile dysfunction, unspecified erectile dysfunction type (ICD-10 - N52.9) [facility] Other 04-19-2023 Evaluation note* Encounter Date Diagnosis Assessment Notes Treatment Notes Treatment Clinical Notes Sep, 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) [facility] Other 04-12-2023 Evaluation note* Encounter Date Diagnosis Assessment Notes Treatment Notes Treatment Clinical Notes Sep, 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) Sep, 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) [facility] Other 03-20-2023 Evaluation note* Encounter Date Diagnosis Assessment Notes Treatment Notes Treatment Clinical Notes Aug, Diabetic nephropathy (ICD-10 - E11.21) [facility] Other 03-03-2023 Evaluation note* Encounter Date Diagnosis Assessment Notes Treatment Notes Treatment Clinical Notes Aug, Pain in right leg (ICD-10 - M79.604) [facility] Other 03-02-2023 Evaluation note* Encounter Date Diagnosis Assessment Notes Treatment Notes Treatment Clinical Notes Aug, Pain in right leg (ICD-10 - M79.604) [facility] Other 02-20-2023 Evaluation note* Encounter Date Diagnosis Assessment Notes Treatment Notes Treatment Clinical Notes Jul, Intractable episodic headache, unspecified headache type (ICD-10 - R51.9) [facility] Other 02-14-2023 Evaluation note* Encounter Date Diagnosis Assessment Notes Treatment Notes Treatment Clinical Notes Jul, Acute intractable headache, unspecified headache type (ICD-10 - R51.9) [facility] Other 02-08-2023 Evaluation note* Encounter Date Diagnosis Assessment Notes Treatment Notes Treatment Clinical Notes Jul, Headache (ICD-10 - R51.9) [facility] Other 01-30-2023 Evaluation note* Encounter Date Diagnosis [...] medication and we will continue to monitor. [facility] Other 12-21-2022 Evaluation note* Encounter Date Diagnosis Assessment Notes Treatment Notes Treatment Clinical Notes May, Diabetic nephropathy (ICD-10 - E11.21) [facility] Other 11-21-2022 Evaluation note* Encounter Date Diagnosis Assessment Notes Treatment Notes Treatment Clinical Notes Apr, Diabetic nephropathy (ICD-10 - E11.21) [facility] Other 11-15-2022 Evaluation note* Encounter Date Diagnosis Assessment Notes Treatment Notes Treatment Clinical Notes Apr, Pain in right leg (ICD-10 - M79.604) [facility] Other 10-18-2022 Evaluation note* Encounter Date Diagnosis Assessment Notes Treatment Notes Treatment Clinical Notes Mar, Diabetic nephropathy (ICD-10 - E11.21) [facility] Other 09-13-2022 Evaluation note* Encounter Date Diagnosis Assessment Notes Treatment Notes Treatment Clinical Notes Feb, Hypertensive chronic kidney disease with stage 1 through stage 4 chronic kidney disease, or unspecified chronic kidney disease (ICD-10 - I12.9) [facility] Other 09-13-2022 Evaluation note* Encounter Date Diagnosis [...] scheduled. Feb, Atherosclerotic hear t disease of [place] coronary artery without angina pectoris (ICD-10 - [...] is to continue to follow with the infection prevention specialist as scheduled. Feb, Pain in right leg [...] Noted upon review of blood work results. [facility] Other 08-19-2022 Evaluation note* Encounter Date Diagnosis Assessment Notes Treatment Notes Treatment Clinical Notes Jan, Diabetic nephropathy (ICD-10 - E11.21) [facility] Other 08-17-2022 Evaluation note* Encounter Date Diagnosis Assessment Notes Treatment Notes Treatment Clinical Notes Jan, Diabetic nephropathy (ICD-10 - E11.21) [facility] Other 07-21-2022 Evaluation note* Encounter Date Diagnosis Assessment Notes Treatment Notes Treatment Clinical Notes Dec, Diabetic nephropathy (ICD-10 - E11.21) [facility] Other 06-22-2022 Evaluation note* Encounter Date Diagnosis Assessment Notes Treatment Notes Treatment Clinical Notes Nov, Diabetic nephropathy (ICD-10 - E11.21) [facility] Other 05-23-2022 Evaluation note* Encounter Date Diagnosis Assessment Notes Treatment Notes Treatment Clinical Notes October, Diabetic nephropathy (ICD-10 - E11.21) [facility] Other 05-17-2022 Evaluation note* Encounter Date Diagnosis [...] E11.59) October, 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 Inman. For this October, Other He did quit smoking since July 2020 [facility] Other 05-16-2022 Evaluation note* Encounter Date Diagnosis Assessment Notes Treatment Notes Treatment Clinical Notes October, Hypertensive chronic kidney disease with stage 1 through stage 4 chronic kidney disease, or unspecified chronic kidney disease (ICD-10 - I12.9) October, Stage 3 chronic kidney disease, unspecified whether stage 3a or 3b CKD (ICD-10 - N18.30) [facility] Other 05-06-2022 Evaluation note* Encounter Date Diagnosis Assessment Notes Treatment Notes Treatment Clinical Notes October, Pain in right leg (ICD-10 - M79.604) October, Pain in left leg (ICD-10 - M79.605) [facility] Other 04-20-2022 Evaluation note* Encounter Date Diagnosis Assessment Notes Treatment Notes Treatment Clinical Notes Sep, Diabetic nephropathy (ICD-10 - E11.21) [facility] Other 04-19-2022 Evaluation note* Encounter Date Diagnosis Assessment Notes Treatment Notes Treatment Clinical Notes Sep, Anxiety (ICD-10 - F41.9) Sep, Hypertensive chronic kidney disease with stage 1 through stage 4 chronic kidney disease, or unspecified chronic kidney disease (ICD-10 - I12.9) [facility] Other 03-07-2022 Evaluation note* Encounter Date Diagnosis Assessment Notes Treatment Notes Treatment Clinical Notes Aug, Anxiety (ICD-10 - F41.9) [facility] Other 02-22-2022 Evaluation note* Encounter Date Diagnosis [...] 12 pound weight loss from last visit. [facility] Other [id number] Evaluation note* Encounter Date Diagnosis Assessment Notes Treatment Notes Treatment Clinical Notes Jun, Diabetic nephropathy (ICD-10 - E11.21) [facility] Other Evaluation + Plan note Future Appointments Appointment Date:12/21/2022 11:00:00 AM Scheduled Provider: Location:[facility] Mal[place] Appointment Type:URO Nurse Visit Appointment Date:01/30/2023 10:30:00 AM Scheduled Provider:Yeyo ROWE MD Location:[facility] Aurelio Appointment Type:URO Office Visit [facility] [place] Evaluation + Plan note Future Appointments Appointment Date:01/30/2023 10:15:00 AM Scheduled Provider:Yeyo ROWE MD Location:[facility] Appointment Type:URO Office Visit [facility] Evaluation + Plan note Future Appointments Appointment Date:02/01/2023 10:00:00 AM Scheduled Provider: Location:[facility] Appointment Type:Urology CALL PAT FT Appointment Date:02/08/2023 09:00:00 AM Scheduled Provider: Location:[facility] Appointment Type:Urology FT Appointment Date:02/14/2023 09:15:00 AM Scheduled Provider: Location:[facility] Appointment Type:Urology FT [facility] evaluation + Plan note Future Appointments Appointment Date:02/14/2023 09:15:00 AM Scheduled Provider: Location:[facility] Future App[facility]ments Appointment Date:03/20/2023 08:45:00 AM Scheduled Provider: Location:[facility] Appointment Type:URO Nurse Visit Appointment Date:04/05/2023 08:00:00 AM Scheduled Provider:Yeyo ROWE MD [facility] Future Appointments Appointment Date:05/03/2023 08:45:00 AM Scheduled Provider:Yeyo ROWE [facility] Type:URO Office Visit [facility] Evaluation + Plan note Future Appointments Appointment Date:07/03/2023 10:15:00 AM Scheduled Provider:Yeyo ROWE [facility] Type:[facility]O Office Visit [facility] evaluation noteNo InformationNort Wasabi 3D Other evaluation noteNo assessment information available [facility] Work Phone: History general Narrative - [...] hydrocele repair 08/2016 Surgical History cardiac cath [facility] 04/02/18 Surgical History Lt LE iliac DSA, angioplasty & stenting 09/27/2018 Surgical History Left Angiogram with one stent - Dr. Boss 07/2020 Hospitalization History Deep Depression, Anxiety; [facility] 11-11-10 Hospitalization History [facility] hypoxemia and hyper capnic respirtory failure 11/11/16 Hospitalization History chest pain [facility] 04/02/18 [facility] Other History of Present illness NarrativeReturns in [...] impact on blood pressure and diabetes were reviewed-[facility] [address] DO Work Phone: History [...] medication regimen. He denies medication side effects. [facility] 600 DO Work Phone: History of Present [...] medication regimen. He denies medication side effects. [facility] [employer] DO Work Phone: Hospital course Narrative No data available for this section [facility] Discharge instructions No data available for this section [facility] [employer] Progress note No data available for this section [facility] [employer] Chief Complaint SOLOMON FELDMAN is being seen [...] Heart disease Unknown Peripheral arterial disease Unknown father Unknown grandparent Unknown Not Specified Unknown Heart disease Unknown Reason for Referral Reason CANCELLED consult and treat; previous patient of Dr. Sharpe last seen in 2020; persisting intractable headaches Diagnosis 1 Acute intractable he adache, unspecified headache type (R51.9) Referral Organization [facility] [employer] Referring Provider First Name Jenaro Referring Provider Last Name Syed Referring Provider Specialty Family [place] Referred Organization [facility] Referred Provider Lyssa Sharpe Ref[address] [place],[id number] Referred Provider Specialty Neurology Referral Priority Routine [facility] 10:19[facility]08 AM >Received today. [facility] request us to fill out their form and attach to Referral and send it to them and they will call patient to schedule. 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) Referral Organization [facility] [employer] Referring Provider First Name Jenaro Referring Provider Last Name Syed Referring Provider Specialty [facility] [place] Referred Organization [facility] Referred Provider Doris Barnes Referred Address [address],[place],[address] Referred Provider Specialty Nurse Jono calderon Referral Priority Routine Referral Appointment Date 2022-03-31 [facility] 02:28:10 PM >Received today and sent P2P [facility] 02/16/2022 07:50:21 AM >Patient has been scheduled Chief Complaint and Reason for Visit Chief Complaint r51.9 E11.59 E78.5 M10.9 Chief Complaint Bilat feet swollen, L arm swollen/tight Chief Complaint Bilat feet swollen, L arm swollen/tight Amb Documentation migraine Amb Documentation Unknown Advance Directives No Advanced Directives Records Found Advance Directive Response Recorded Date/ Time Advance Directives No June 09, 2017 5:49pm Advance Directive Response Recorded Date/ Time Advance Directives No June 09, 2017 4:49pm Summary Purpose Additional Source Comments REASON FOR VISIT (unrecogniz ed section and content) RefillsRefillsRefilllower ja w swelling- spouse had appt and wanted this at the same time, * Needs [id number] to sendRefills-bpk to send rxrefil - bpk to send rxLAB ORDERSRENAL 6 month Follow uprefillrefillclinicalRefills-bpk to send rxlyrica rx printedDM ReferralClinicaldiscuss PSA resultsclinicalClinicalRefills-bpk to send rxrefillrefill- BPK to send rxRefills-bpk to send rxClinicalheadachesClinicaltoradol shottoradol shotclinicaltoradol per bpkNeurology Referral UpdateRefills-bpk to send rxrefillRefillDM Referral UpdaterefillRefillsRefillsTKM CancelledMED CHECKbpk to send iotfrofcxuc4g check/hospital f/u-bellevueRefillsR/S surgical clearanceclinicalrefillrefillrefillClinical Care Teams (unrecognized sec tion and content) Team Status: Active Member Role Status Elda Lynch DO Primary Care Provider Active Team Status: Inactive Member Role Status Dates Jenaro Lynch DO Primary Care Provider Active Shana Mclaughlin PA-C Attending Provider Active Team Status: Inactive Member Role Status Elda Lynch DO Primary Care Provider Active Jenaro Lynch DO [facility] Attending Provider Active Team Status: Inactive Member Role Status Dates Jenaro Lynch DO Primary Care Provider Active Sta rt: July 12, 2023 End: July 12, 2023 Nancy Wilson MD Emergency Provider Active St art: July 12, 2023 End: July 12, 2023 Team Status: Active Member Role Status Elda Lynch DO Primary Care Provider Active Sta rt: July 26, 2023 ASHLI Escobar Attending Provider Active Start: July 26, 2023 Team Status: Active Member Role Status Elda Lynch DO Primary Care Provider Active Sta rt: July 31, 2023 Shana Mclaughlin PA-C Attending Provider, Referring Provider Active Start: July 31, 2023 Team Status: Active Member Role Status Dates Jenaro Lynch , DO Primary Care Provide r, Attending Provider Active Start: August 03, 2023 Team Status: Active Member Role Status Dates Jeanro Lynch DO Primary Care Provide r, Attending Provider Active Start: August 04, 2023 Team Status: Active Member Role Status Dates Jenaro Lynch DO Primary Care Provide r, Attending Provider Active Start: August 05, 2023 Team Status: Active Member Role Status Dates Jenaro Lynch DO Primary Care Provide r, Attending Provider Active Start: August 06, 2023 Team Status: Active Member Role Status Dates Jenaro Lynch DO Primary Care Provide r, Attending Provider Active Start: August 07, 2023 Team Status: Active Member Role Status Dates Jenaro Lynch DO Primary Care Provider Active Sta rt: August 08, 2023 Syl Kaplan LPN Attending Provider Active Sta rt: August 08, 2023 Team Status: Active Member Role Status Dates Jenaro Lynch DO Primary Care Provide r, Attending Provider Active Start: August 10, 2023 Team Status: Active Member Role Status Dates Jenaro Lynch DO Primary Care Provide r, Attending Provider Active Start: September 18, 2023 Team Status: Inactive Member Role Status Dates Jenaro Lynch DO Primary Care Provider Active Sta rt: September 21, 2023 End: September 21, 2023 Fredy Elias DPM MS Attending Provider Active Start: September 21, 2023 End: September 21, 2023 Goals (unrecognized section and content) Goals may be documented in a n alternate section (unrecognized sect ion and content) No Status Records FoundNo Status Records FoundNo Status Records FoundNo Status Records FoundNo Status Records FoundNo Status Records Found INFORMATION SOURCE (unrecogn ized section and content) DATE CREATED AUTHOR 11/11/2022 [facility] DATE CREATED AUTHOR AUTHOR'S ORGANIZ ATION 01/27/2023 [facility] DATE CREATED AUTHOR AUTHOR'S ORGANIZ ATION 02/16/2023 [facility] DATE CREATED AUTHOR AUTHOR'S ORGANIZ ATION 02/16/2023 [employer] DATE CREATED AUTHOR AUTHOR'S ORGANIZ ATION 09/08/2023 [facility] DATE CREATED AUTHOR AUTHOR'S JOHN DAVIS 09/27/2023 [facility] FOR RECORDS PERTAINING TO PATIENTS WHO ARE [...] BE BASED ON THE PRIMARY CLINICAL RECORDS. [facility] Recorded [facility]. provides no warranty or guarantee of the accuracy or completeness of information in this document.
[2023-09-30 16:24] LABS: Basophils Absolute Auto 0.1 10^3/uL (0.0-0.1); Basophils Percent Auto 0.4 % (0.2-2.0); Eosinophils Absolute Auto 0.2 10^3/uL (0.0-0.7); Eosinophils Percent Auto 1.4 % (0.9-7.0); Hematocrit 32.9 % (42.0-54.0); Immature Granulocytes Abs Auto 0.09 10^3/uL (0.00-0.03); Immature Granulocytes Pct Auto 0.6 % (0.0-0.5); Lymphocytes Absolute Auto 1.4 10^3/uL (1.2-3.8); Lymphocytes Percent Auto 10.1 % (20.5-60.0); Mean Corpuscular HGB Conc 30.4 g/dL (29.9-35.2); Mean Corpuscular Hemoglobin 22.7 pg (25.9-34.0); Mean Corpuscular Volume 74.6 fL (80.0-94.0); Mean Platelet Volume 10.9 fL (9.5-13.5); Monocytes Absolute Auto 0.9 10^3/uL (0.3-0.8); Monocytes Percent Auto 6.7 % (1.7-12.0); Neutrophils Absolute Auto 11.2 10^3/uL (1.4-6.5); Neutrophils Percent Auto 80.8 % (43.0-75.0); Platelet Count 227 10^3/uL (150-450); Red Blood Count 4.41 10^6/uL (4.70-6.10); White Blood Count 13.9 10^3/uL (4.0-11.0)
[2023-09-30 16:25] LABS: Glucometer 249 mg/dL (74-106)
[2023-09-30 16:31] LABS: INR 1.23; Prothrombin Time 12.9 sec (9.0-11.6)
[2023-09-30] MEDS: 0.9 % SODIUM CHLORIDE 1,000 ML 999 ML IV (16:35)
[2023-09-30] MEDS: ONDANSETRON PF 4 MG/2 ML VIAL IV (16:35)
[2023-09-30 16:45] LABS: Alanine Aminotransferase 17 U/L (16-63); Albumin Globulin Ratio 0.5; Albumin Level 2.4 g/dL (3.4-5.0); Alkaline Phosphatase 145 U/L (46-116); Anion Gap 25.6; Aspartate Amino Transferase 21 U/L (15-37); BUN Creatinine Ratio 9.9; Bilirubin Total 0.4 mg/dL (0.2-1.0); Carbon Dioxide 18.3 mmol/L (21.0-32.0); Chloride 97 mmol/L (98-107); Estimated GFR (African America 22 (>=60); Estimated GFR (Non-African Ame 19 (>=60); Globulin 4.8 g/dL; Glucose 208 mg/dL (74-106); Potassium 3.9 mmol/L (3.5-5.1); Sodium 137 mmol/L (136-145); Total Protein 7.2 g/dL (6.4-8.2); Troponin I High Sensitivity 6.6 pg/mL (4.0-76.1)
[2023-09-30 16:46] LABS: Calcium 5.8 mg/dL (8.5-10.1); Lactate/Lactic Acid 4.8 mmol/L (0.4-2.0)
--- NOTE | 2023-09-30 16:47 | ED_ITS ---
Documented by User: Chandrika Morleyey 09/30/23 18:13 HPI HPI - General Adult General Chief complaint: Skin/Abscess/Foreign Body Stated complaint: FOOT SURGERY-POSS SEPSIS Time Seen by Provider: 09/30/23 16:10 Source: patient Mode of arrival: ambulance History of Present Illness HPI narrative: Simone presents here with chief complaint of right foot wound. Patient has had debridement of this wound 3 times last being on September 20. Patient presents today here with a chief complaint of weakness right foot pain and inability to keep any food or fluids down. Patient states for last 2 days had nausea vomiting. states has not been able to keep any of his medications down. Patient is type II diabetic. Patient was recently on linezolid and doxycycline for the foot infection. Patient did have a partial dissection of his bone per to rule out any osteomyelitis. She is unaware if patient had osteomyelitis. Patient does appear ill. He is able to answer all questions but states he feels weak. Patient is hypotensive. He is tachycardic. Patient does not have fever Related Data Home Medications ?Medication ?Instructions ?Recorded ?Confirmed aspirin 81 mg tablet,delayed 81 mg PO DAILY 03/03/23 09/21/23 release atorvastatin 80 mg tablet 80 mg PO DAILY 03/03/23 09/21/23 clopidogrel 75 mg tablet 75 mg PO DAILY 03/03/23 09/21/23 empagliflozin 10 mg tablet 10 mg PO DAILY 03/03/23 09/21/23 (Jardiance) glimepiride 2 mg tablet 2 mg PO BID 03/03/23 09/21/23 metformin 1,000 mg tablet 1,000 mg PO BID 03/03/23 09/21/23 metoprolol tartrate 100 mg tablet 50 mg PO Q12H 03/03/23 09/21/23 nitroglycerin 0.4 mg sublingual 0.4 mg sublingual Q5M PRN chest 03/03/23 09/21/23 tablet pain omeprazole 40 mg capsule,delayed 40 mg PO DAILY 03/03/23 09/21/23 release pregabalin 200 mg capsule 200 mg PO TID 03/03/23 09/21/23 sitagliptin phosphate 100 mg 100 mg PO DAILY 03/03/23 09/21/23 tablet (Januvia) tamsulosin 0.4 mg capsule (Flomax) 0.4 mg PO BID 03/03/23 09/21/23 valsartan 160 1 tab PO DAILY 03/03/23 09/21/23 mg-hydrochlorothiazide 12.5 mg tablet amitriptyline 100 mg tablet 100 mg PO BEDTIME 03/04/23 09/21/23 albuterol sulfate 90 mcg/actuation 2 inh inhalation Q4H PRN shortness 03/30/23 09/21/23 aerosol inhaler (ProAir HFA) of breath or wheezing dulaglutide 1.5 mg/0.5 mL 1.5 mg subcut QWEEK 08/03/23 09/21/23 subcutaneous pen injector (Trulicity) fremanezumab-vfrm 225 mg/1.5 mL 225 mg subcut .QMonth 08/03/23 09/21/23 subcutaneous auto-injector (Ajovy) furosemide 40 mg tablet 40 mg PO DAILY 08/03/23 09/21/23 isosorbide mononitrate 30 mg 30 mg PO DAILY 08/03/23 09/21/23 tablet,extended release 24 hr rimegepant 75 mg disintegrating 75 mg PO DAILY 08/03/23 09/21/23 tablet (Nurtec ODT) budesonide-formoterol HFA 160 2 inh inhalation Q12H 09/18/23 09/21/23 mcg-4.5 mcg/actuation aerosol inhaler (Symbicort) ropinirole 1 mg tablet 1 mg PO TID 09/18/23 09/21/23 sildenafil 100 mg tablet 100 mg PO Q24H PRN sexual activity 09/18/23 09/21/23 tiotropium bromide 2.5 2 inh inhalation Q24H 09/18/23 09/21/23 mcg/actuation mist for inhalation (Spiriva Respimat) tizanidine 4 mg tablet 4 mg PO DAILY 09/18/23 09/21/23 Previous Rx's ?Medication ?Instructions ?Recorded doxycycline monohydrate 100 mg 100 mg PO BID 14 days #28 caps 08/07/23 capsule tramadol 50 mg tablet 50 mg PO Q6H PRN pain #28 tabs 08/07/23 hydrocodone 5 mg-acetaminophen 325 1 tab PO Q6H PRN pain 7 days #28 08/18/23 mg tablet tabs hydrocodone 5 mg-acetaminophen 325 1 tab PO Q8H PRN pain 7 days #21 08/29/23 mg tablet tabs doxycycline hyclate 100 mg capsule 100 mg PO BID 7 days #14 caps 09/21/23 oxycodone-acetaminophen 5 mg-325 1 tab PO Q6H PRN pain 7 days #28 09/22/23 mg tablet (Percocet) tabs Allergies Allergy/AdvReac Type Severity Reaction Status Date / Time Penicillins Allergy Severe Swelling Verified 09/18/23 08:25 of Lip/Tongue/Throat bee venom protein (honey bee) Allergy Swelling Verified 09/18/23 08:25 of Lip/Tongue/Throat latex Allergy Rash Verified 09/18/23 08:25 Opioid HPI Opioid Management Most Recent Opioid Data: Last Pain Scale 10 09/30/23 19:42 Last Pain Intensity 9 03/04/23 10:36 Last MAR Pain Assessment 09/30/23 19:42 Ur Phencyclidine Scrn Negative (NEGATIVE) 03/03/23 17:24 Review of Systems ROS Narrative All Systems are negative except as noted/marked.All systems reviewed and otherwise negative [facility] Medical History (Updated 09/30/23 @ 18:11 by Chandrika Castanon) Abscess of right foot ?L02.611 - Cutaneous abscess of right foot (ICD-10) Chronic ulcer of right foot ?L97.519 - Non-pressure chronic ulcer of other part of right foot with unspecified severity (ICD-10) Anticoagulated ?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.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 (ICD-10) Diabetic infection of right foot ?E11.628 - Type 2 diabetes mellitus with other skin complications (ICD-10) ?L08.9 - Local infection of the skin and subcutaneous tissue, unspecified (ICD-10) Puncture wound of right foot ?S91.331A - Puncture wound without foreign body, right foot, initial encounter (ICD-10) Cellulitis of foot, right ?L03.115 - Cellulitis of right lower limb (ICD-10) ROEL (acute kidney injury) ?N17.9 - Acute kidney failure, unspecified (ICD-10) Sepsis ?A41.9 - Sepsis, unspecified organism (ICD-10) CHF (congestive heart failure) ?I50.9 - Heart failure, unspecified (ICD-10) Migraine headache ?G43.909 - Migraine, unspecified, not intractable, without status migrainosus (ICD-10) Tobacco abuse ?Z72.0 - Tobacco use (ICD-10) DM2 (diabetes mellitus, type 2) ?E11.9 - Type 2 diabetes mellitus without complications (ICD-10) Carpal tunnel syndrome ?G56.00 - Carpal tunnel syndrome, unspecified upper limb (ICD-10) Back pain ?M54.9 - Dorsalgia, unspecified (ICD-10) Arthritis ?M19.90 - Unspecified osteoarthritis, unspecified site (ICD-10) Restless leg ?G25.81 - Restless legs syndrome (ICD-10) GERD (gastroesophageal reflux disease) ?K21.9 - Gastro-esophageal reflux disease without esophagitis (ICD-10) High cholesterol ?E78.00 - Pure hypercholesterolemia, unspecified (ICD-10) Myocardial infarction ?I21.9 - Acute myocardial infarction, unspecified (ICD-10) Coronary artery disease ?I25.10 - Atherosclerotic heart disease of [place] coronary artery without angina pectoris (ICD-10) BPH with obstruction/lower urinary tract symptoms ?N40.1 - Benign prostatic hyperplasia with lower urinary tract symptoms (ICD- 10) ?N13.8 - Other obstructive and reflux uropathy (ICD-10) Dementia ?F03.90 - Unspecified dementia, unspecified severity, without behavioral disturbance, psychotic disturbance, mood disturbance, and anxiety (ICD-10) CKD stage 4 due to type 2 diabetes mellitus ?E11.22 - Type 2 diabetes mellitus with diabetic chronic kidney disease (ICD- 10) ?N18.4 - Chronic kidney disease, stage 4 (severe) (ICD-10) Hyperlipidemia ?E78.5 - Hyperlipidemia, unspecified (ICD-10) Polyp of prostate with urinary obstruction ?N40.1 - Benign prostatic hyperplasia with lower urinary tract symptoms (ICD- 10) ?N13.8 - Other obstructive and reflux uropathy (ICD-10) Femoral artery stenosis ?I70.209 - Unspecified atherosclerosis of [place] arteries of extremities, unspecified extremity (ICD-10) Glaucoma ?H40.9 - Unspecified glaucoma (ICD-10) Carpal tunnel syndrome, bilateral ?G56.03 - Carpal tunnel syndrome, bilateral upper limbs (ICD-10) Gout ?M10.9 - Gout, unspecified (ICD-10) COPD (chronic obstructive pulmonary disease) ?J44.9 - Chronic obstructive pulmonary disease, unspecified (ICD-10) Neuropathy ?G62.9 - Polyneuropathy, unspecified (ICD-10) Chronic kidney disease ?N18.9 - Chronic kidney disease, unspecified (ICD-10) Hypertension ?I10 - Essential (primary) hypertension (ICD-10) Weakness ?R53.1 - Weakness (ICD-10) Surgical History (Updated 09/15/23 @ 10:12 by Shana George NP) H/O foot surgery (08/10/23) ?Z98.890 - Other specified postprocedural states (ICD-10) S/P TURP (04/13/23) ?Z90.79 - Acquired absence of other genital organ(s) (ICD-10) H/O foot surgery (08/05/23) ?Z98.890 - Other specified postprocedural states (ICD-10) History of heart artery stent ?Z95.5 - Presence of coronary angioplasty implant and graft (ICD-10) History of spinal surgery ?Z98.890 - Other specified postprocedural states (ICD-10) History of colonoscopy ?Z98.890 - Other specified postprocedural states (ICD-10) History of carpal tunnel release ?Z98.890 - Other specified postprocedural states (ICD-10) History of cataract extraction ?Z98.49 - Cataract extraction status, unspecified eye (ICD-10) History of appendectomy ?Z90.49 - Acquired absence of other specified parts of digestive tract (ICD- 10) History of heart artery stent ?Z95.5 - Presence of coronary angioplasty implant and graft (ICD-10) Family History (Updated 03/03/23 @ 18:46 by Darling Sharma RN) Mother Family history of CHF (congestive heart failure) Family history of diabetes mellitus Family history of hypertension Grandfather Family history of CHF (congestive heart failure) Family history of diabetes mellitus Family history of hypertension Family history of myocardial infarction Grandmother Family history of hypertension Social History (Updated 08/10/23 @ 09:23 by Mariely Fox) Within the past year, how often did you have a drink containing alcohol: never Score interpretation: A score less than 4 is consistent with normal alcohol consumption. Smoking status: Current every day smoker What tobacco products do you use: cigarettes Cigarettes per day: 20 Years smoked: 42 Smoking pack-years: 42.00 Non-prescribed substance use: denies use Previous occupational history: DISABLED Highest level of school completed/degree received: high school graduate Gender Identity: male Exam Narrative Exam Narrative: All Systems are negative except as noted/marked.All systems reviewed and otherwise negative Nurses note and vital signs reviewed and patient is not hypoxic. General: The patient appears ill, resting on cot Skin: Warm, dry, palor noted. There is no rash noted. Head: Normocephalic, atraumatic Eye: Normal conjunctiva, no drainage, EOMI. PERRL Ears, Nose, Mouth, and Throat: oral mucosa is moist. Nares patent. Mouth without vesicles. Ear canals patent. Tm's without Erythema Musculoskeletal: open wound to base of foot 3x4x2 cm.s/p wound debridement. The patient has no evidence of calf tenderness, no pitting edema, symmetrical pulses noted bilaterally Neurological: A&O x4, normal speech Psychiatric: Cooperative Constitutional Vital Signs, click to edit/add: Last Vital Signs Temp 98.8 F 09/30/23 16:05 Pulse 92 H 09/30/23 21:00 Resp 25 H 09/30/23 21:00 BP 110/58 09/30/23 20:59 Pulse Ox 100 09/30/23 21:00 O2 Del Method Room Air 09/30/23 20:34 Course Vital Signs Vital signs: Vital Signs Temperature 98.8 F 09/30/23 16:05 Pulse Rate 115 H 09/30/23 16:05 Respiratory Rate 30 H 09/30/23 16:05 Blood Pressure 91/65 09/30/23 16:05 Pulse Oximetry 100 09/30/23 16:05 Oxygen Delivery Method Room Air 09/30/23 16:05 Temperature 98.8 F 09/30/23 16:05 Pulse Rate 92 H 09/30/23 21:00 Respiratory Rate 25 H 09/30/23 21:00 Blood Pressure 110/58 09/30/23 20:59 Pulse Oximetry 100 09/30/23 21:00 Oxygen Delivery Method Room Air 09/30/23 20:34 Medical Decision Making [facility] Narrative Medical decision making narrative: MikeMalmaggie presents here with chief complaint of right foot wound. Patient has had debridement of this wound 3 times last being on September 20. Patient presents today here with a chief complaint of weakness right foot pain and inability to keep any food or fluids down. Patient states for last 2 days had nausea vomiting. states has not been able to keep any of his medications down. Patient is type II diabetic. Patient was recently on linezolid and doxycycline for the foot infection. Patient did have a partial dissection of his bone per to rule out any osteomyelitis. She is unaware if patient had osteomyelitis. Patient does appear ill. He is able to answer all questions but states he feels weak. Patient is hypotensive. He is tachycardic. Patient does not have fever Coming here to the emergency room by squad. He appeared septic s/p chronic Foot infection with debridement was performed on september 20. upon Arrival to the emergency room , 2 IVs were established, IV fluids were given. Blood and blood cultures were drawn. Lactic acid is 4.8 and calcium is 5.8, magnesium is 0.5. Tick was taken down patient had a foul-smelling wound. It measures approximately 4 x 6 cm. Area was With Hibiclens and saline. Patient tolerated procedure well. Patient given liter IV fluids as well as lactated Ringer's , vancomycin has been started. Patient is allergic to penicillins Zosyn was originally ordered but changed to Levaquin. calcium glutonate as well as magnesium were also given IV to help correct electrolytes. Patient is stable at this time. Vital signs have improved. Garza was placed and patient had over 1000 cc out. states he does have a history of prostate issues and she had straight cath him in the past. She had not had to straight cath him in the last month. Urine was sent to lab. He does feel better he will answer questions appropriately. Patient will be admitted to the ICU. Dr. Bryant agrees for admission. Patient will also be consulted Dr. Elias who performed his surgeries to his foot previously. Differential Diagnosis Differential Diagnosis: sepsis Medical Records Medical records reviewed: Yes I reviewed the patient's medical records Lab Data Lab results reviewed: Yes I reviewed the patient's lab results Labs: Lab Results 09/30/23 09/30/23 09/30/23 Range/Units 16:09 16:24 17:10 WBC 13.9 H (4.0-11.0) 10^3/uL RBC 4.41 L (4.70-6.10) 10^6/uL Hgb 10.0 L (14.0-18.0) g/dL Hct 32.9 L (42.0-54.0) % MCV 74.6 L (80.0-94.0) fL MCH 22.7 L (25.9-34.0) pg MCHC 30.4 (29.9-35.2) g/dL RDW 19.0 H (11.0-15.0) % Plt Count 227 (150-450) 10^3/uL MPV 10.9 (9.5-13.5) fL Neut % (Auto) 80.8 H (43.0-75.0) % Lymph % (Auto) 10.1 L (20.5-60.0) % [place] % (Auto) 6.7 (1.7-12.0) % Eos % (Auto) 1.4 (0.9-7.0) % Baso % (Auto) 0.4 (0.2-2.0) % Neut # (Auto) 11.2 H (1.4-6.5) 10^3/uL Lymph # (Auto) 1.4 (1.2-3.8) 10^3/uL [place] # (Auto) 0.9 H (0.3-0.8) 10^3/uL Eos # (Auto) 0.2 (0.0-0.7) 10^3/uL Baso # (Auto) 0.1 (0.0-0.1) 10^3/uL Abs Immat Gran (auto) 0.09 H (0.00-0.03) 10^3/uL Imm/Tot Granulo (auto) 0.6 H (0.0-0.5) % ESR 130 H (<=20) mm/hr PT 12.9 H (9.0-11.6) sec INR 1.23 Sodium 137 (136-145) mmol/L Potassium 3.9 (3.5-5.1) mmol/L Chloride 97 L (98-107) mmol/L Carbon Dioxide 18.3 L (21.0-32.0) mmol/L Anion Gap 25.6 BUN 34.0 H (7.0-18.0) mg/dL Creatinine 3.43 H (0.70-1.30) mg/dL Est GFR ( Amer) 22 L (>=60) Est GFR (Non-Af Amer) 19 L (>=60) BUN/Creatinine Ratio 9.9 Glucose 208 H (74-106) mg/dL Lactate 4.8 H* (0.4-2.0) mmol/L Calcium 5.8 L* (8.5-10.1) mg/dL Magnesium 0.5 L* (1.8-2.4) mg/dL Total Bilirubin 0.4 (0.2-1.0) mg/dL AST 21 (15-37) U/L ALT 17 (16-63) U/L Alkaline Phosphatase 145 H (46-116) U/L Troponin I High Sens 6.6 (4.0-76.1) pg/mL C-Reactive Protein 14.76 H (<=0.50) mg/dL NT-Pro-B Natriuret Pep 611.0 (<=900.0) pg/mL Total Protein 7.2 (6.4-8.2) g/dL Albumin 2.4 L (3.4-5.0) g/dL Globulin 4.8 g/dL Albumin/Globulin Ratio 0.5 Urine Color Lt. yellow (YELLOW) Urine Clarity Clear (CLEAR) Urine pH 5.5 (5.0-9.0) Ur Specific [place] <=1.005 A (1.005-1.025) Urine Protein Negative (NEG/TRACE) mg/dL Urine Glucose (UA) 500 A (NEGATIVE) mg/dL Urine Ketones Negative (NEGATIVE) mg/dL Urine Occult Blood Trace-i (NEGATIVE) Urine Nitrite Negative (NEGATIVE) Urine Bilirubin Negative (NEGATIVE) Urine Urobilinogen 0.2 (0.2-1.0) EU/dL Ur Leukocyte Esterase Negative (NEGATIVE) Urine RBC None seen (0-2) #/HPF Urine WBC None seen (NONE SEEN) #/HPF Ur Squamous Epith Cells None seen (NONE/RARE) #/LPF Urine Crystals None seen (None Seen) #/HPF Urine Bacteria None seen (NONE SEEN) #/HPF Urine Casts None seen (NONE SEEN) #/LPF Urine Mucus None seen (NONE SEEN) Ur Culture Indicated? No POC Glucose 249 H (74-106) mg/dL Imaging Data foot: Radiologist's impression: ITS Impressions Chest X-Ray 09/30/23 18:05 IMPRESSION: Stable chest x-ray, no acute findings. Cardiac silhouette accentuated by magnification. Electronically authenticated by: VANESSA BAPTISTE Date: 09/30/2023 18:39 Foot X-Ray 09/30/23 18:05 IMPRESSION: No acute fracture. No radiographic evidence of acute osteomyelitis. MRI of the foot with and without contrast is recommended if clinically warranted. Electronically authenticated by: OBDULIA RIVERA Date: 09/30/2023 18:46 Chest x-ray: Attestation: I have reviewed the pertinent imaging results. Radiologist's impression: ITS Impressions Chest X-Ray 09/30/23 18:05 IMPRESSION: Stable chest x-ray, no acute findings. Cardiac silhouette accentuated by magnification. Electronically authenticated by: VANESSA BAPTISTE Date: 09/30/2023 18:39 Foot X-Ray 09/30/23 18:05 IMPRESSION: No acute fracture. No radiographic evidence of acute osteomyelitis. MRI of the foot with and without contrast is recommended if clinically warranted. Electronically authenticated by: OBDULIA RIVERA Date: 09/30/2023 18:46 Discharge Plan Discharge Chief Complaint: Skin/Abscess/Foreign Body Clinical Impression: Wound of foot, Sepsis, Hypomagnesemia, Hypocalcemia Patient Disposition: Admitted As Inpatient Time of Disposition Decision: 17:00 Condition: Critical Discharge Date/Time: 09/30/23 18:22 Documented by User: Sudeep Cao MD 09/30/23 21:35 HPI HPI - General Adult General Chief complaint: Skin/Abscess/Foreign Body Stated complaint: FOOT SURGERY-POSS SEPSIS Time Seen by Provider: 09/30/23 16:10 History of Present Illness HPI narrative: 58Male presents here with chief complaint of right foot wound. Patient has had debridement of this wound 3 times last being on September 20. Patient presents today here with a chief complaint of weakness right foot pain and inability to keep any food or fluids down. Patient states for last 2 days had nausea vomiting. states has not been able to keep any of his medications down. Patient is type II diabetic. Patient was recently on linezolid and doxycycline for the foot infection. Patient did have a partial dissection of his bone per to rule out any osteomyelitis. She is unaware if patient had osteomyelitis. Patient does appear ill. He is able to answer all questions but states he feels weak. Patient is hypotensive. He is tachycardic. Patient does not have fever. Patient looks sick. Related Data Home Medications ?Medication ?Instructions ?Recorded ?Confirmed aspirin 81 mg tablet,delayed 81 mg PO DAILY 03/03/23 09/21/23 release atorvastatin 80 mg tablet 80 mg PO DAILY 03/03/23 09/21/23 clopidogrel 75 mg tablet 75 mg PO DAILY 03/03/23 09/21/23 empagliflozin 10 mg tablet 10 mg PO DAILY 03/03/23 09/21/23 (Jardiance) glimepiride 2 mg tablet 2 mg PO BID 03/03/23 09/21/23 metformin 1,000 mg tablet 1,000 mg PO BID 03/03/23 09/21/23 metoprolol tartrate 100 mg tablet 50 mg PO Q12H 03/03/23 09/21/23 nitroglycerin 0.4 mg sublingual 0.4 mg sublingual Q5M PRN chest 03/03/23 09/21/23 tablet pain omeprazole 40 mg capsule,delayed 40 mg PO DAILY 03/03/23 09/21/23 release pregabalin 200 mg capsule 200 mg PO TID 03/03/23 09/21/23 sitagliptin phosphate 100 mg 100 mg PO DAILY 03/03/23 09/21/23 tablet (Januvia) tamsulosin 0.4 mg capsule (Flomax) 0.4 mg PO BID 03/03/23 09/21/23 valsartan 160 1 tab PO DAILY 03/03/23 09/21/23 mg-hydrochlorothiazide 12.5 mg tablet amitriptyline 100 mg tablet 100 mg PO BEDTIME 03/04/23 09/21/23 albuterol sulfate 90 mcg/actuation 2 inh inhalation Q4H PRN shortness 03/30/23 09/21/23 aerosol inhaler (ProAir HFA) of breath or wheezing dulaglutide 1.5 mg/0.5 mL 1.5 mg subcut QWEEK 08/03/23 09/21/23 subcutaneous pen injector (Trulicity) fremanezumab-vfrm 225 mg/1.5 mL 225 mg subcut .QMonth 08/03/23 09/21/23 subcutaneous auto-injector (Ajovy) furosemide 40 mg tablet 40 mg PO DAILY 08/03/23 09/21/23 isosorbide mononitrate 30 mg 30 mg PO DAILY 08/03/23 09/21/23 tablet,extended release 24 hr rimegepant 75 mg disintegrating 75 mg PO DAILY 08/03/23 09/21/23 tablet (Nurtec ODT) budesonide-formoterol HFA 160 2 inh inhalation Q12H 09/18/23 09/21/23 mcg-4.5 mcg/actuation aerosol inhaler (Symbicort) ropinirole 1 mg tablet 1 mg PO TID 09/18/23 09/21/23 sildenafil 100 mg tablet 100 mg PO Q24H PRN sexual activity 09/18/23 09/21/23 tiotropium bromide 2.5 2 inh inhalation Q24H 09/18/23 09/21/23 mcg/actuation mist for inhalation (Spiriva Respimat) tizanidine 4 mg tablet 4 mg PO DAILY 09/18/23 09/21/23 Previous Rx's ?Medication ?Instructions ?Recorded doxycycline monohydrate 100 mg 100 mg PO BID 14 days #28 caps 08/07/23 capsule tramadol 50 mg tablet 50 mg PO Q6H PRN pain #28 tabs 08/07/23 hydrocodone 5 mg-acetaminophen 325 1 tab PO Q6H PRN pain 7 days #28 08/18/23 mg tablet tabs hydrocodone 5 mg-acetaminophen 325 1 tab PO Q8H PRN pain 7 days #21 08/29/23 mg tablet tabs doxycycline hyclate 100 mg capsule 100 mg PO BID 7 days #14 caps 09/21/23 oxycodone-acetaminophen 5 mg-325 1 tab PO Q6H PRN pain 7 days #28 09/22/23 mg tablet (Percocet) tabs Allergies Allergy/AdvReac Type Severity Reaction Status Date / Time Penicillins Allergy Severe Swelling Verified 09/18/23 08:25 of Lip/Tongue/Throat bee venom protein (honey bee) Allergy Swelling Verified 09/18/23 08:25 of Lip/Tongue/Throat latex Allergy Rash Verified 09/18/23 08:25 Opioid HPI Opioid Management Most Recent Opioid Data: Last Pain Scale 10 09/30/23 19:42 Last Pain Intensity 9 03/04/23 10:36 Last MAR Pain Assessment 09/30/23 19:42 Ur Phencyclidine Scrn Negative (NEGATIVE) 03/03/23 17:24 PFSH PFSH Medical History (Updated 09/30/23 @ 18:11 by Chandrika Castanon) Abscess of right foot ?L02.611 - Cutaneous abscess of right foot (ICD-10) Chronic ulcer of right foot ?L97.519 - Non-pressure chronic ulcer of other part of right foot with unspecified severity (ICD-10) Anticoagulated ?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.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 (ICD-10) Diabetic infection of right foot ?E11.628 - Type 2 diabetes mellitus with other skin complications (ICD-10) ?L08.9 - Local infection of the skin and subcutaneous tissue, unspecified (ICD-10) Puncture wound of right foot ?S91.331A - Puncture wound without foreign body, right foot, initial encounter (ICD-10) Cellulitis of foot, right ?L03.115 - Cellulitis of right lower limb (ICD-10) ROEL (acute kidney injury) ?N17.9 - Acute kidney failure, unspecified (ICD-10) Sepsis ?A41.9 - Sepsis, unspecified organism (ICD-10) CHF (congestive heart failure) ?I50.9 - Heart failure, unspecified (ICD-10) Migraine headache ?G43.909 - Migraine, unspecified, not intractable, without status migrainosus (ICD-10) Tobacco abuse ?Z72.0 - Tobacco use (ICD-10) DM2 (diabetes mellitus, type 2) ?E11.9 - Type 2 diabetes mellitus without complications (ICD-10) Carpal tunnel syndrome ?G56.00 - Carpal tunnel syndrome, unspecified upper limb (ICD-10) Back pain ?M54.9 - Dorsalgia, unspecified (ICD-10) Arthritis ?M19.90 - Unspecified osteoarthritis, unspecified site (ICD-10) Restless leg ?G25.81 - Restless legs syndrome (ICD-10) GERD (gastroesophageal reflux disease) ?K21.9 - Gastro-esophageal reflux disease without esophagitis (ICD-10) High cholesterol ?E78.00 - Pure hypercholesterolemia, unspecified (ICD-10) Myocardial infarction ?I21.9 - Acute myocardial infarction, unspecified (ICD-10) Coronary artery disease ?I25.10 - Atherosclerotic heart disease of [place] coronary artery without angina pectoris (ICD-10) BPH with obstruction/lower urinary tract symptoms ?N40.1 - Benign prostatic hyperplasia with lower urinary tract symptoms (ICD- 10) ?N13.8 - Other obstructive and reflux uropathy (ICD-10) Dementia ?F03.90 - Unspecified dementia, unspecified severity, without behavioral disturbance, psychotic disturbance, mood disturbance, and anxiety (ICD-10) CKD stage 4 due to type 2 diabetes mellitus ?E11.22 - Type 2 diabetes mellitus with diabetic chronic kidney disease (ICD- 10) ?N18.4 - Chronic kidney disease, stage 4 (severe) (ICD-10) Hyperlipidemia ?E78.5 - Hyperlipidemia, unspecified (ICD-10) Polyp of prostate with urinary obstruction ?N40.1 - Benign prostatic hyperplasia with lower urinary tract symptoms (ICD- 10) ?N13.8 - Other obstructive and reflux uropathy (ICD-10) Femoral artery stenosis ?I70.209 - Unspecified atherosclerosis [place] [facility] of extremities, unspecified extremity (ICD-10) Glaucoma ?H40.9 - Unspecified glaucoma (ICD-10) Carpal tunnel syndrome, bilateral ?G56.03 - Carpal tunnel syndrome, bilateral upper limbs (ICD-10) Gout ?M10.9 - Gout, unspecified (ICD-10) COPD (chronic obstructive pulmonary disease) ?J44.9 - Chronic obstructive pulmonary disease, unspecified (ICD-10) Neuropathy ?G62.9 - Polyneuropathy, unspecified (ICD-10) Chronic kidney disease ?N18.9 - Chronic kidney disease, unspecified (ICD-10) Hypertension ?I10 - Essential (primary) hypertension (ICD-10) Weakness ?R53.1 - Weakness (ICD-10) Surgical History (Updated 09/15/23 @ 10:12 by Shana George NP) H/O foot surgery (08/10/23) ?Z98.890 - Other specified postprocedural states (ICD-10) S/P TURP (04/13/23) ?Z90.79 - Acquired absence of other genital organ(s) (ICD-10) H/O foot surgery (08/05/23) ?Z98.890 - Other specified postprocedural states (ICD-10) History of heart artery stent ?Z95.5 - Presence of coronary angioplasty implant and graft (ICD-10) History of spinal surgery ?Z98.890 - Other specified postprocedural states (ICD-10) History of colonoscopy ?Z98.890 - Other specified postprocedural states (ICD-10) History of carpal tunnel release ?Z98.890 - Other specified postprocedural states (ICD-10) History of cataract extraction ?Z98.49 - Cataract extraction status, unspecified eye (ICD-10) History of appendectomy ?Z90.49 - Acquired absence of other specified parts of digestive tract (ICD- 10) History of heart artery stent ?Z95.5 - Presence of coronary angioplasty implant and graft (ICD-10) Family History (Updated 03/03/23 @ 18:46 by Darling Sharma RN) Mother Family history of CHF (congestive heart failure) Family history of diabetes mellitus Family history of hypertension Grandfather Family history of CHF (congestive heart failure) Family history of diabetes mellitus Family history of hypertension Family history of myocardial infarction Grandmother Family history of hypertension Social History (Updated 08/10/23 @ 09:23 by Mariely Fox) Within the past year, how often did you have a drink containing alcohol: never Score interpretation: A score less than 4 is consistent with normal alcohol consumption. Smoking status: Current every day smoker What tobacco products do you use: cigarettes Cigarettes per day: 20 Years smoked: 42 Smoking pack-years: 42.00 Non-prescribed substance use: denies use Previous occupational history: DISABLED Highest level of school completed/degree received: high school graduate Gender Identity: male Exam Constitutional Vital Signs, click to edit/add: Last Vital Signs Temp 98.8 F 09/30/23 16:05 Pulse 92 H 09/30/23 21:00 Resp 25 H 09/30/23 21:00 BP 110/58 09/30/23 20:59 Pulse Ox 100 09/30/23 21:00 O2 Del Method Room Air 09/30/23 20:34 Course Vital Signs Vital signs: Vital Signs Temperature 98.8 F 09/30/23 16:05 Pulse Rate 115 H 09/30/23 16:05 Respiratory Rate 30 H 09/30/23 16:05 Blood Pressure 91/65 09/30/23 16:05 Pulse Oximetry 100 09/30/23 16:05 Oxygen Delivery Method Room Air 09/30/23 16:05 Temperature 98.8 F 09/30/23 16:05 Pulse Rate 92 H 09/30/23 21:00 Respiratory Rate 25 H 09/30/23 21:00 Blood Pressure 110/58 09/30/23 20:59 Pulse Oximetry 100 09/30/23 21:00 Oxygen Delivery Method Room Air 09/30/23 20:34 Medical Decision Making MDM Narrative Medical decision making narrative: Emergency department sepsis orders and aggressive treatment and resuscitation was done. MikeMalmaggie presents here with chief complaint of right foot wound. Patient has had debridement of this wound 3 times last being on September 20. Patient presents today here with a chief complaint of weakness right foot pain and inability to keep any food or fluids down. Patient states for last 2 days had nausea vomiting. states has not been able to keep any of his medications down. Patient is type II diabetic. Patient was recently on linezolid and doxycycline for the foot infection. Patient did have a partial dissection of his bone per to rule out any osteomyelitis. She is unaware if patient had osteomyelitis. Patient does appear ill. He is able to answer all questions but states he feels weak. Patient is hypotensive. He is tachycardic. Patient does not have fever Coming here to the emergency room by squad. He appeared septic s/p chronic Foot infection with debridement was performed on september 20. upon Arrival to the emergency room , 2 IVs were established, IV fluids were given. Blood and blood cultures were drawn. Lactic acid is 4.8 and calcium is 5.8, magnesium is 0.5. Patient's splint was taken down patient had a foul-smelling wound, Probable Pseudomonas. It measures approximately 4 x 6 cm. Area was With Hibiclens and saline. Patient tolerated procedure well. Patient given liter IV fluids as well as lactated Ringer's , vancomycin has been started. Patient is allergic to penicillins Zosyn was originally ordered but changed to Levaquin. calcium glutonate as well as magnesium were also given IV to help correct electrolytes. Patient is stable at this time. Vital signs have improved. Garza was placed and patient had over 1000 cc out. states he does have a history of prostate issues and she had straight cath him in the past. She had not had to straight cath him in the last month. Urine was sent to lab. He does feel better he will answer questions appropriately. Patient will be admitted to the ICU. Dr. Bryant agrees for admission. Patient will also be consulted Dr. Elias who performed his surgeries to his foot previously. Dr. Cao note below: I, Dr Cao, have reviewed the above progress note and course of action in the ER; agree with the above. I have personally seen and evaluated this patient, gone over history and physical, and discussed disposition and treatment plan with the patient. There has been spent well over 60 minutes of resuscitation of IV fluids, multiple IV antibiotics, given IV calcium, IV magnesium, continuous cardiac monitoring. Patient had a Garza catheter placed, patient had over 1200 mL of urine put out, this was clamped after this amount. Patient has a penicillin ALLERGY. Patient was initially given IV vancomycin. Patient was then given IV clindamycin and will be given IV Levaquin in the ICU. Patient has had continuous cardiac monitoring. Discussion with patient, and [id number] at bedside were done. Patient is sick. Dr. Bryant came to see and evaluate the patient in the Emergency Room. Dr. Elias is aware of the consultation as well. Patient also had 4 IVs when he went to the ICU. Admission time, Reassessment of tissue perfusion was done. Patient has had good urine output. Vital signs have improved.patient's color has not improved, patient's hypotension did improve with 2.5 L of IV fluid resuscitation. Cap refill has not changed initially to his hands. Critical care time 55 minutes exclusive from separate billable procedures that were performed. The following was considered in the determination of critical care but not limited to the level of medical decision making, intensive cardiac and/or respiratory monitoring, frequent vital sign monitoring, evaluation of laboratory studies, evaluation of radiographic studies, oxygen monitoring, and constant monitoring and speaking to family at bedside Lab Data Lab results reviewed: Yes I reviewed the patient's lab results Labs: Lab Results 09/30/23 09/30/23 09/30/23 Range/Units 16:09 16:24 17:10 WBC 13.9 H (4.0-11.0) 10^3/uL RBC 4.41 L (4.70-6.10) 10^6/uL Hgb 10.0 L (14.0-18.0) g/dL Hct 32.9 L (42.0-54.0) % MCV 74.6 L (80.0-94.0) fL MCH 22.7 L (25.9-34.0) pg MCHC 30.4 (29.9-35.2) g/dL RDW 19.0 H (11.0-15.0) % Plt Count 227 (150-450) 10^3/uL MPV 10.9 (9.5-13.5) fL Neut % (Auto) 80.8 H (43.0-75.0) % Lymph % (Auto) 10.1 L (20.5-60.0) % [place] % (Auto) 6.7 (1.7-12.0) % Eos % (Auto) 1.4 (0.9-7.0) % Baso % (Auto) 0.4 (0.2-2.0) % Neut # (Auto) 11.2 H (1.4-6.5) 10^3/uL Lymph # (Auto) 1.4 (1.2-3.8) 10^3/uL [place] # (Auto) 0.9 H (0.3-0.8) 10^3/uL Eos # (Auto) 0.2 (0.0-0.7) 10^3/uL Baso # (Auto) 0.1 (0.0-0.1) 10^3/uL Abs Immat Gran (auto) 0.09 H (0.00-0.03) 10^3/uL Imm/Tot Granulo (auto) 0.6 H (0.0-0.5) % ESR 130 H (<=20) mm/hr PT 12.9 H (9.0-11.6) sec INR 1.23 Sodium 137 (136-145) mmol/L Potassium 3.9 (3.5-5.1) mmol/L Chloride 97 L (98-107) mmol/L Carbon Dioxide 18.3 L (21.0-32.0) mmol/L Anion Gap 25.6 BUN 34.0 H (7.0-18.0) mg/dL Creatinine 3.43 H (0.70-1.30) mg/dL Est GFR ( Amer) 22 L (>=60) Est GFR (Non-Af Amer) 19 L (>=60) BUN/Creatinine Ratio 9.9 Glucose 208 H (74-106) mg/dL Lactate 4.8 H* (0.4-2.0) mmol/L Calcium 5.8 L* (8.5-10.1) mg/dL Magnesium 0.5 L* (1.8-2.4) mg/dL Total Bilirubin 0.4 (0.2-1.0) mg/dL AST 21 (15-37) U/L ALT 17 (16-63) U/L Alkaline Phosphatase 145 H (46-116) U/L Troponin I High Sens 6.6 (4.0-76.1) pg/mL C-Reactive Protein 14.76 H (<=0.50) mg/dL NT-Pro-B Natriuret Pep 611.0 (<=900.0) pg/mL Total Protein 7.2 (6.4-8.2) g/dL Albumin 2.4 L (3.4-5.0) g/dL Globulin 4.8 g/dL Albumin/Globulin Ratio 0.5 Urine Color Lt. yellow (YELLOW) Urine Clarity Clear (CLEAR) Urine pH 5.5 (5.0-9.0) Ur Specific [place] <=1.005 A (1.005-1.025) Urine Protein Negative (NEG/TRACE) mg/dL Urine Glucose (UA) 500 A (NEGATIVE) mg/dL Urine Ketones Negative (NEGATIVE) mg/dL Urine Occult Blood Trace-i (NEGATIVE) Urine Nitrite Negative (NEGATIVE) Urine Bilirubin Negative (NEGATIVE) Urine Urobilinogen 0.2 (0.2-1.0) EU/dL Ur Leukocyte Esterase Negative (NEGATIVE) Urine RBC None seen (0-2) #/HPF Urine WBC None seen (NONE SEEN) #/HPF Ur Squamous Epith Cells None seen (NONE/RARE) #/LPF Urine Crystals None seen (None Seen) #/HPF Urine Bacteria None seen (NONE SEEN) #/HPF Urine Casts None seen (NONE SEEN) #/LPF Urine Mucus None seen (NONE SEEN) Ur Culture Indicated? No POC Glucose 249 H (74-106) mg/dL Imaging Data foot: Radiologist's impression: ITS Impressions Chest X-Ray 09/30/23 18:05 IMPRESSION: Stable chest x-ray, no acute findings. Cardiac silhouette accentuated by magnification. Electronically authenticated by: VANESSA BAPTISTE Date: 09/30/2023 18:39 Foot X-Ray 09/30/23 18:05 IMPRESSION: No acute fracture. No radiographic evidence of acute osteomyelitis. MRI of the foot with and without contrast is recommended if clinically warranted. Electronically authenticated by: OBDULIA [employer] Date: 09/30/2023 18:46 Chest x-ray: Radiologist's impression: ITS Impressions Chest X-Ray 09/30/23 18:05 IMPRESSION: Stable chest x-ray, no acute findings. Cardiac silhouette accentuated by magnification. Electronically authenticated by: VANESSA BAPTISTE Date: 09/30/2023 18:39 Foot X-Ray 09/30/23 18:05 IMPRESSION: No acute fracture. No radiographic evidence of acute osteomyelitis. MRI of the foot with and without contrast is recommended if clinically warranted. Electronically authenticated by: OBDULIA [employer] Date: 09/30/2023 18:46 ECG Data Attestation: I personally reviewed and interpreted this ECG as follows: (EKG interpretation. Tachycardic regular rhythm at 114 beats a minute. Normal axis deviation. QTc of 410. First-degree AV block, [place] interval 234.) Discharge Plan Discharge Chief Complaint: Skin/Abscess/Foreign Body Clinical Impression: Wound of foot, Sepsis, Hypomagnesemia, Hypocalcemia Patient Disposition: Admitted As Inpatient Time of Disposition Decision: 17:00 Condition: Critical Discharge Date/Time: 09/30/23 18:22
[2023-09-30] MEDS: VANCOMYCIN HCL IV (16:48)
[2023-09-30] MEDS: SODIUM CHLORIDE 0.9% IV (16:48)
[2023-09-30] MEDS: CALCIUM GLUCONATE 1,000 MG/10 ML VIAL 1000 MG IVP (16:51)
[2023-09-30 17:16] LABS: Erythrocyte Sedimentation Rate 130 mm/hr (<=20)
[2023-09-30 17:21] LABS: Bilirubin Urine NEGATIVE (NEGATIVE); Blood Urine TRACE-I (NEGATIVE); Clarity Urine CLEAR (CLEAR); Color Urine LT. YELLOW (YELLOW); Glucose Urine UA 500 mg/dL (NEGATIVE); Ketones Urine NEGATIVE (NEGATIVE); Leukocyte Esterase Urine NEGATIVE (NEGATIVE); Nitrite Urine NEGATIVE (NEGATIVE); Protein Urine NEGATIVE (NEG/TRACE); Specific Gravity Urine <=1.005 (1.005-1.025); Urobilinogen Urine 0.2 EU/dL (0.2-1.0); pH Urine 5.5 (5.0-9.0)
[2023-09-30 17:30] LABS: WBC Urine NONE SEEN #/HPF (NONE SEEN)
[2023-09-30 17:31] LABS: C Reactive Protein 14.76 mg/dL (<=0.50)
[2023-09-30 17:31] LABS: Bacteria Urine NONE SEEN #/HPF (NONE SEEN); Cast Seen? NONE SEEN #/LPF (NONE SEEN); Crystals Seen? None Seen #/HPF (None Seen); Mucus Urine NONE SEEN (NONE SEEN); RBC Urine NONE SEEN #/HPF (0-2); Squamous Epithelial Cell Urine NONE SEEN #/LPF (NONE/RARE); Urine Culture Indicated NO
[2023-09-30 17:35] LABS: Magnesium 0.5 mg/dL (1.8-2.4)
[2023-09-30] MEDS: LACTATED RINGER'S SOLUTION 1,000 ML 1000 ML IV (17:46)
[2023-09-30] MEDS: MAGNESIUM SULFATE/WATER 2 GM/50 ML PREMIX IV (17:47)
[2023-09-30] MEDS: CLINDAMYCIN PHOSPHATE/D5W 600 MG/50 ML PIGGYBACK 100 MG IV (17:54)
--- NOTE | 2023-09-30 18:05 | XR_ITS ---
The [address] [address] Patient Name: MYRA FELIPE MRN: [id number] date: 1965 Sex: M Assigned Patient Location: ED.MAIN Current Patient Location: ICU Accession/Order Number: [id number] Exam Date: 09/30/2023 18:05 Report Date: 09/30/2023 18:46 At the request of: SU FRYE Procedure: XR foot RT min 3V EXAM: XR foot RT min 3V HISTORY: pain COMPARISON: 09/21/2023 TECHNIQUE: 3 views of the right foot FINDINGS: There is no acute fracture or dislocation. No cortical erosion or focal osteopenia to suggest acute osteomyelitis. There is plantar foot ulcer at the level of the first metatarsophalangeal joint. Degenerative changes of the metatarsophalangeal joints are noted. No gas or radiopaque foreign body is noted in the soft tissue. XR/XR foot RT min 3V IMPRESSION: No acute fracture. No radiographic evidence of acute osteomyelitis. MRI of the foot with and without contrast is recommended if clinically warranted. Electronically authenticated by: OBDULIA RIVERA Date: 09/30/2023 18:46
--- NOTE | 2023-09-30 18:05 | XR_ITS ---
The [address] [address] Patient Name: MYRA FELIPE MRN: [id number] date: 1965 Sex: M Assigned Patient Location: ED.MAIN Current Patient Location: ICU Accession/Order Number: [id number] Exam Date: 09/30/2023 18:05 Report Date: 09/30/2023 18:39 At the request of: SU FRYE Procedure: XR chest 1V EXAM: XR chest 1V HISTORY: sepsis COMPARISON: 03/03/2023 and earlier TECHNIQUE: AP upright chest x-ray. FINDINGS: Clear lungs without infiltrate or edema. Heart size accentuated by magnification appears prominent. No pleural effusion or pneumothorax. XR/XR chest 1V IMPRESSION: Stable chest x-ray, no acute findings. Cardiac silhouette accentuated by magnification. Electronically authenticated by: VANESSA BAPTISTE Date: 09/30/2023 18:39
[2023-09-30] MEDS: LEVOFLOXACIN IN DEXTROSE 5 % 750 MG/150 ML IV.SOLN 100 MG IV (18:13)
--- OUTSIDE RECORDS SUMMARY | 2023-09-30 18:32 | XMS_ITS | CCD ---
Author Organization [facility] Care Team Providers Care Classroom Technology Coach Name Role Phone Jenaro Lynch Unavailable Unavailable Unavailable Jenaro Lynch Unavailable Chavoolivier Norrisjuan Unavailable Verona Whaley Unavailable Doris Barnes Unavailable DO Jenaro Lynch Primary Care Provider JERARDO Mclaughlin Attending Provider [phone] DO Jenaro Lynch Attending Provider [phone] ELAINE .DUARTE Attending Unavailable ELAINE Hernandez DUARTE Admitting Unavailable DR LYSSA PERDOMO Consulting Unavailable SYED, DR EASON Primary Care Unavailable DUARTE MÁRQUEZ Consulting Unavailable JENARO LYNCH Primary Care Physician [phone] Syed, Dr. Jenaro Orona Primary Care UnavailDolores [...] Unavailable DO Jenaro Lynch Primary Care Provider [phone] MD Nancy Wilson Emergency Provider [phone] Yeyo ROWE Attending Unavailable ROWE, Yeyo R [...] Care Provider MD Nancy Wilson Emergency Provider JERARDO Mclaughlin Attending Provider JERARDO Mclaughlin Referring Provider LINDSEY Elias Attending Provider [phone] Fredy Elias Admitting Unavailable Fredy Elias Attending Unavailable Jenaro Lynch Primary Care Unavailable [facility], Jenaro Guerra Admitting Unavailable [facility] - [facility], Jenaro P Attending Unavailable Jenaro [...] Eruption of skin (disorder) [facility] (20 sources) Penicillins; 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: [Penicillins] Allergy to drug (finding) 07-14-19 Anaphylactoid reaction (disorder) [facility] (20 sources) Acetaminophen / oxyCODONE Drug Allergy vomiting [facility] [employer] Other (20 sources) tamsulosin Drug Allergy 07-14-19 hives [facility] (20 sources) PENICIILIN Propensity to adverse reactions SWELLING OF AIRWAY [facility] Other (4 sources) Acetaminophen; 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: [acetaminophen] Drug Allergy 07-14-19 21 Vomiting [facility] (5 sources) oxyCODONE; 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: [Oxycodone] Drug Allergy 02-08-20 17 Vomiting [facility] (1 source) Penicillins Drug allergy (disorder) 09-23-19 14 [facility] (13 sources) Penicillin G; 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: [penicillin G benzathine] Drug Allergy [facility] (8 sources) Penicillin Drug Allergy anaphylaxis [employer] Other (1 source) Penicillins Drug allergy (disorder) 07-31-19 24 [facility] (1 source) tamsulosin Drug Allergy 07-31-19 [facility] Repository Medications Current Medications Medication [...] 1:00am July 14, 2020 12:39pm Start: 10-10-2014 [place] 325 mg-5 mg oral tablet 1 tab(s), [...] 30 Refills: 6 Ordered: 11-Jan-2023 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 once daily Tamsulosin HCl - 0.4 MG Oral Capsule TAKE 1 CAPSULE Daily Quantity: 0 Refills: 0 Ordered: 15-Feb-2023 DO [facility] (20 sources) Start: 01-27-2014 Start: 01-27-2014 [facility] as d irected Use as directed. Jan, Active Tiotropium [place] (Spiriva With Handihaler) 18 mcg capsule, w/inhalation device (2 sources) Start: 07-12-2023 take 1 capsule by inhalation once daily Tiotropium [place] (Spiriva With Handihaler) 18 mcg capsule, w/inhalation device Active 1 CAP INHALATION Daily July 12, 2023 1:00am puncture 1 cap using device; one dose = 2 inhalations Start: 07-12-2023 take 1 capsule by in halation once daily Tiotropium [place] (Spiriva With Handihaler) 18 mcg capsule, w/inhalation [...] Jun, Active take 2 tablets by mo [facility] at bedtime tiZANidine HCl - 4 MG [...] procedure, # 2 cap(s), Refills(s) 0, Pharmacy: [facility]/pharmacy #[id number], 182, cm, 01/30/23 10:24:00 EDT, Height/Length [...] take 1 tablet by mouth once daily Olmesartan-[place] chlorothiazide (Benicar Hct) 40-12.5 mg Tablet Discontinued [...] [Coronary atherosclerosis of unspecified type of vessel, [place] or graft] Onset: 2 Resolved: 2 Chronic [...] sources) Long-term current use of insulin; 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: [FDC (current) use of insulin] Episodic Other and [...] Test Name Value Interpretation Reference Range Facility [facility] 09-21-2023 L Specimen: [id number] Received: 09/21/23 Status: COLTON Nath Num: [id number] Spec Type: Surgical Subm Dr: Fredy Elias DPM, MS Tissues: A Bone Fragments - Other than Path Fracture Procedures: HE, Gross/Micro L3, Decalcification Age/ Patient Sex Location Account Attending Physician Solomon Feldman SR 58/M LABELL [id number] Fredy Elias DPM, MS SPEC NUM: [id number] RECD: 09/21/23 STATUS: COLTON NATH NUM: [id number] SHAKIRA: 09/21/[address]: Fredy Elias DPM, MS ENTERED: 09/21/[address]: SPEC TYPE: Surgical DEPT: RAMSEY MARCANO ENTERED BY: [id number] RECV BY: [id number] ORDERED: LULU, Gross/Micro L3, Decalcification ORDERED: LULU, [...] excisional debridement with skin substitute. CPT Codes 25668, 38787 Specimen: [id number] Received: 09/21/23 Status: FRANCISCODaniel Nath Num: [id number] Spec Type: Surgical Subm Dr: Fredy Elias,LINDSEY, MS Tissues: A Bone Fragments - Other than Path Fracture Procedures: LULU Gross/Micro L3, Decalcification Patient: Solomon Feldman [id number] (Continued) Signed (signature on file) Victor Hugo Sotelo MD 09/26/[address] [facility] Activated partial thrombopla stin time (aPTT) in platelet poor plasma by coagulation aon 09-18-2023 aPTT Coag (PPP) [Time] 32.0 s 22.3-36.2 [facility] Basophils Auto (Bld) [#/Vol] on 09-18-2023 Basophils (Bld) [#/Vol] 0.1 10 3/uL 0.0-0.1 [facility] Basophils/100 WBC Auto (Bld) on 09-18-2023 Basophils/100 WBC (Bld) 0.9 % 0.2-2.0 [facility] Eosinophils/100 WBC Auto (Bl d)on 09-18-2023 Eosinophils/100 WBC (Bld) 2.3 % 0.9-7.0 [facility] Erythrocyte distribution wid th Auto (RBC) [Ratio]on 09-18-2023 Erythrocyte distribution width (RBC) [Ratio] 18.8 % 11.0-15.0 [facility] Estimated glomerular filtrat ion rate (GFR) non- Americanon 09-18-2023 GFR/1.73 sq M.predicted among non-blacks MDRD (S/P/Bld) [Vol rate/Area] 27 mL/min/{1.73_m2} >=60 [facility] Hematocrit Auto (Bld) [Volum e fraction]on 09-18-2023 Hematocrit (Bld) [Volume fraction] 35.0 % 42.0-54.0 [facility] Hemoglobin [Mass/volume] in Bloodon 09-18-2023 Hemoglobin (Bld) [Mass/Vol] 10.3 g/dL 14.0-18.0 [facility] INR in Platelet poor plasma by Coagulation assayon 09-18-2023 INR Coag (PPP) [Relative time] 1.08 {INR} [facility] Comment on above: DESIRED INR:2.0-3.0 CONDITIONS NOT LISTED BELOW2.5-3.5 FOR PROSTHETIC HEART VALVE REPLACEMENT2.5-3.5 RECURRENT THROMBOSIS Laboratory - Chemistry and C hemistry - challengeon 09-18-2023 Calcium [Mass/Vol] 8.9 mg/dL 8.5-10.1 [facility] Chloride [Moles/Vol] 97 mmol/L 98-107 [facility] CO2 [Moles/Vol] 28.2 mmol/L 21.0-32.0 [facility] Creatinine [Mass/Vol] 2.47 mg/dL 0.70-1.30 [facility] GFR/1.73 sq M.predicted MDRD (S/P/Bld) [Vol rate/Area] 33 mL/min/{1.73_m2} >=60 [facility] Glucose [Mass/Vol] 200 mg/dL 74-106 [facility] Potassium [Moles/Vol] 3.7 mmol/L 3.5-5.1 [facility] Sodium [Moles/Vol] 137 mmol/L 136-145 [facility] Urea nitrogen [Mass/Vol] 23.0 mg/dL 7.0-18.0 [facility] Urea nitrogen/Creatinine [Mass ratio] 9.3 mg/mg [facility] Laboratory - Hematology and Cell countson 09-18-2023 Immature granulocytes/100 WBC (Bld) 0.6 % 0.0-0.5 [facility] Leukocytes [#/volume] correc jorge for nucleated erythrocytes in Blood by Automated counon 09-18-2023 WBC corrected for nucl RBC Auto (Bld) [#/Vol] 12.4 10 3/uL 4.0-11.0 [facility] Lymphocytes Auto (Bld) [#/Vo l]on 09-18-2023 Lymphocytes (Bld) [#/Vol] 2.4 10 3/uL 1.2-3.8 [facility] Lymphocytes/100 WBC Auto (Bl d)on 09-18-2023 Lymphocytes/100 WBC (Bld) 19.6 % 20.5-60.0 [facility] MCH Auto (RBC) [Entitic mass ]on 09-18-2023 MCH (RBC) [Entitic mass] 22.2 pg 25.9-34.0 [facility] MCHC Auto (RBC) [Mass/Vol]on 09-18-2023 MCHC (RBC) [Mass/Vol] 29.4 g/dL 29.9-35.2 [facility] MCV Auto (RBC) [Entitic vol] on 09-18-2023 MCV (RBC) [Entitic vol] 75.3 fL 80.0-94.0 [facility] Monocytes Auto (Bld) [#/Vol] on 09-18-2023 Monocytes (Bld) [#/Vol] 1.2 10 3/uL 0.3-0.8 [facility] Monocytes/100 WBC Auto (Bld) on 09-18-2023 Monocytes/100 WBC (Bld) 10.0 % 1.7-12.0 [facility] Neutrophils Auto (Bld) [#/Vo l]on 09-18-2023 Neutrophils (Bld) [#/Vol] 8.2 10 3/uL 1.4-6.5 [facility] Neutrophils/100 WBC Auto (Bl d)on 09-18-2023 Neutrophils/100 WBC (Bld) 66.6 % 43.0-75.0 [facility] No Panel Informationon 09-17 Eosinophils # (Auto) 0.3 10 3/uL 0.0-0.7 [facility] Immature Granulocyte # (Auto) 0.07 10 3/uL 0.00-0.03 [facility] Platelet mean volume Auto (B ld) [Entitic vol]on 09-18-2023 Platelet mean volume (Bld) [Entitic vol] 10.9 fL 9.5-13.5 [facility] Platelets Auto (Bld) [#/Vol] on 09-18-2023 Platelets (Bld) [#/Vol] 300 10 3/uL 150-450 [facility] Prothrombin time (PT)on 09-03 PT Coag (PPP) [Time] 11.4 s 9.0-11.6 [facility] RBC Auto (Bld) [#/Vol]on RBC (Bld) [#/Vol] 4.65 10 6/uL 4.70-6.10 [facility] Serum or plasma anion gap de terminationon 09-18-2023 Anion gap [Moles/Vol] 15.5 [facility] - Microbiology an d Antimicrobial susceptibilityOrdered By: Jenaro Lynch on 08-10-2023 Microscopic observation Gram stain Nom (Unsp spec) [facility] No Panel Informationon 08-09 Fungal Smear Result [facility] Miscellaneous Test Comment See comment [facility] Comment on above: Specimen Source: JONO TRT - Foot Right - Foot Rt - [id number] No Panel InformationOrdered By: Jenaro Lynch on 08-10-2023 Acid Fast Smear [facility] AFB Specimen Processing [facility] Tissue Culture [facility] Basophils Auto (Bld) [#/Vol] on 08-07-2023 Basophils (Bld) [#/Vol] 0.1 10 3/uL 0.0-0.1 [facility] Basophils/100 WBC Auto (Bld) on 08-07-2023 Basophils/100 WBC (Bld) 0.7 % 0.2-2.0 [facility] Eosinophils/100 WBC Auto (Bl d)on 08-07-2023 Eosinophils/100 WBC (Bld) 3.9 % 0.9-7.0 [facility] Erythrocyte distribution wid th Auto (RBC) [Ratio]on 08-07-2023 Erythrocyte distribution width (RBC) [Ratio] 16.9 % 11.0-15.0 [facility] Estimated glomerular filtrat ion rate (GFR) non- Americanon 08-07-2023 GFR/1.73 sq M.predicted among non-blacks MDRD (S/P/Bld) [Vol rate/Area] 42 mL/min/{1.73_m2} >=60 [facility] Globulin Calc (S) [Mass/Vol] on 08-07-2023 Globulin (S) [Mass/Vol] 4.0 g/dL [facility] Hematocrit Auto (Bld) [Volum e fraction]on 08-07-2023 Hematocrit (Bld) [Volume fraction] 31.5 % 42.0-54.0 [facility] Hemoglobin [Mass/volume] in Bloodon 08-07-2023 Hemoglobin (Bld) [Mass/Vol] 9.4 g/dL 14.0-18.0 [facility] Laboratory - Chemistry and C hemistry - challengeon 08-07-2023 Albumin [Mass/Vol] 2.1 g/dL 3.4-5.0 [facility] ALP [Catalytic activity/Vol] 144 U/L 46-116 [facility] ALT [Catalytic activity/Vol] 21 U/L 16-63 [facility] AST [Catalytic activity/Vol] 25 U/L 15-37 [facility] Bilirubin [Mass/Vol] 0.4 mg/dL 0.2-1.0 [facility] Calcium [Mass/Vol] 8.1 mg/dL 8.5-10.1 [facility] Chloride [Moles/Vol] 102 mmol/L 98-107 [facility] CO2 [Moles/Vol] 24.7 mmol/L 21.0-32.0 [facility] Creatinine [Mass/Vol] 1.70 mg/dL 0.70-1.30 [facility] GFR/1.73 sq M.predicted MDRD (S/P/Bld) [Vol rate/Area] 50 mL/min/{1.73_m2} >=60 [facility] Glucose [Mass/Vol] 188 mg/dL 74-106 [facility] Potassium [Moles/Vol] 4.6 mmol/L 3.5-5.1 [facility] Protein [Mass/Vol] 6.1 g/dL 6.4-8.2 [facility] Sodium [Moles/Vol] 135 mmol/L 136-145 [facility] Urea nitrogen [Mass/Vol] 33.0 mg/dL 7.0-18.0 [facility] Urea nitrogen/Creatinine [Mass ratio] 19.4 mg/mg [facility] Laboratory - Hematology and Cell countson 08-07-2023 Immature granulocytes/100 WBC (Bld) 0.7 % 0.0-0.5 [facility] Leukocytes [#/volume] correc jorge for nucleated erythrocytes in Blood by Automated counon 08-07-2023 WBC corrected for nucl RBC Auto (Bld) [#/Vol] 12.0 10 3/uL 4.0-11.0 [facility] Lymphocytes Auto (Bld) [#/Vo l]on 08-07-2023 Lymphocytes (Bld) [#/Vol] 1.5 10 3/uL 1.2-3.8 [facility] Lymphocytes/100 WBC Auto (Bl d)on 08-07-2023 Lymphocytes/100 WBC (Bld) 12.4 % 20.5-60.0 [facility] MCH Auto (RBC) [Entitic mass ]on 08-07-2023 MCH (RBC) [Entitic mass] 22.5 pg 25.9-34.0 [facility] MCHC Auto (RBC) [Mass/Vol]on 08-07-2023 MCHC (RBC) [Mass/Vol] 29.8 g/dL 29.9-35.2 [facility] MCV Auto (RBC) [Entitic vol] on 08-07-2023 MCV (RBC) [Entitic vol] 75.4 fL 80.0-94.0 [facility] Monocytes Auto (Bld) [#/Vol] on 08-07-2023 Monocytes (Bld) [#/Vol] 1.2 10 3/uL 0.3-0.8 [facility] Monocytes/100 WBC Auto (Bld) on 08-07-2023 Monocytes/100 WBC (Bld) 10.1 % 1.7-12.0 [facility] Neutrophils Auto (Bld) [#/Vo l]on 08-07-2023 Neutrophils (Bld) [#/Vol] 8.7 10 3/uL 1.4-6.5 [facility] Neutrophils/100 WBC Auto (Bl d)on 08-07-2023 Neutrophils/100 WBC (Bld) 72.2 % 43.0-75.0 [facility] No Panel Informationon 08-06 Eosinophils # (Auto) 0.5 10 3/uL 0.0-0.7 [facility] Immature Granulocyte # (Auto) 0.09 10 3/uL 0.00-0.03 [facility] Platelet mean volume Auto (B ld) [Entitic vol]on 08-07-2023 Platelet mean volume (Bld) [Entitic vol] 11.7 fL 9.5-13.5 [facility] Platelets Auto (Bld) [#/Vol] on 08-07-2023 Platelets (Bld) [#/Vol] 222 10 3/uL 150-450 [facility] RBC Auto (Bld) [#/Vol]on RBC (Bld) [#/Vol] 4.18 10 6/uL 4.70-6.10 [facility] Serum or plasma albumin/glob ulin mass ratioon 08-07-2023 Albumin/Globulin [Mass ratio] 0.5 {ratio} [facility] Serum or plasma anion gap de terminationon 08-07-2023 Anion gap [Moles/Vol] 12.9 mmol/L Fi [facility] Basophils Auto (Bld) [#/Vol] on 08-06-2023 Basophils (Bld) [#/Vol] 0.1 10 3/uL 0.0-0.1 [facility] Basophils/100 WBC Auto (Bld) on 08-06-2023 Basophils/100 WBC (Bld) 0.7 % 0.2-2.0 [facility] Eosinophils/100 WBC Auto (Bl d)on 08-06-2023 Eosinophils/100 WBC (Bld) 3.3 % 0.9-7.0 [facility] Erythrocyte distribution wid th Auto (RBC) [Ratio]on 08-06-2023 Erythrocyte distribution width (RBC) [Ratio] 17.0 % 11.0-15.0 [facility] Estimated glomerular filtrat ion rate (GFR) non- Americanon 08-06-2023 GFR/1.73 sq M.predicted among non-blacks MDRD (S/P/Bld) [Vol rate/Area] 36 mL/min/{1.73_m2} >=60 [facility] Globulin Calc (S) [Mass/Vol] on 08-06-2023 Globulin (S) [Mass/Vol] 4.0 g/dL [facility] Hematocrit Auto (Bld) [Volum e fraction]on 08-06-2023 Hematocrit (Bld) [Volume fraction] 30.1 % 42.0-54.0 [facility] Hemoglobin [Mass/volume] in Bloodon 08-06-2023 Hemoglobin (Bld) [Mass/Vol] 8.8 g/dL 14.0-18.0 [facility] Laboratory - Chemistry and C hemistry - challengeon 08-06-2023 Albumin [Mass/Vol] 2.0 g/dL 3.4-5.0 [facility] ALP [Catalytic activity/Vol] 127 U/L 46-116 [facility] ALT [Catalytic activity/Vol] 14 U/L 16-63 [facility] AST [Catalytic activity/Vol] 16 U/L 15-37 [facility] Bilirubin [Mass/Vol] 0.4 mg/dL 0.2-1.0 [facility] Calcium [Mass/Vol] 7.9 mg/dL 8.5-10.1 [facility] Chloride [Moles/Vol] 99 mmol/L 98-107 [facility] CO2 [Moles/Vol] 25.0 mmol/L 21.0-32.0 [facility] Creatinine [Mass/Vol] 1.95 mg/dL 0.70-1.30 [facility] GFR/1.73 sq M.predicted MDRD (S/P/Bld) [Vol rate/Area] 43 mL/min/{1.73_m2} >=60 [facility] Glucose [Mass/Vol] 297 mg/dL 74-106 [facility] Potassium [Moles/Vol] 4.4 mmol/L 3.5-5.1 [facility] Protein [Mass/Vol] 6.0 g/dL 6.4-8.2 [facility] Sodium [Moles/Vol] 133 mmol/L 136-145 [facility] Urea nitrogen [Mass/Vol] 28.0 mg/dL 7.0-18.0 [facility] Urea nitrogen/Creatinine [Mass ratio] 14.4 mg/mg [facility] Laboratory - Hematology and Cell countson 08-06-2023 Immature granulocytes/100 WBC (Bld) 0.4 % 0.0-0.5 [facility] Leukocytes [#/volume] correc jorge for nucleated erythrocytes in Blood by Automated counon 08-06-2023 WBC corrected for nucl RBC Auto (Bld) [#/Vol] 10.1 10 3/uL 4.0-11.0 [facility] Lymphocytes Auto (Bld) [#/Vo l]on 08-06-2023 Lymphocytes (Bld) [#/Vol] 1.5 10 3/uL 1.2-3.8 [facility] Lymphocytes/100 WBC Auto (Bl d)on 08-06-2023 Lymphocytes/100 WBC (Bld) 14.4 % 20.5-60.0 [facility] MCH Auto (RBC) [Entitic mass ]on 08-06-2023 MCH (RBC) [Entitic mass] 22.5 pg 25.9-34.0 [facility] MCHC Auto (RBC) [Mass/Vol]on 08-06-2023 MCHC (RBC) [Mass/Vol] 29.2 g/dL 29.9-35.2 [facility] MCV Auto (RBC) [Entitic vol] on 08-06-2023 MCV (RBC) [Entitic vol] 77.0 fL 80.0-94.0 [facility] Monocytes Auto (Bld) [#/Vol] on 08-06-2023 Monocytes (Bld) [#/Vol] 1.1 10 3/uL 0.3-0.8 [facility] Monocytes/100 WBC Auto (Bld) on 08-06-2023 Monocytes/100 WBC (Bld) 10.4 % 1.7-12.0 [facility] Neutrophils Auto (Bld) [#/Vo l]on 08-06-2023 Neutrophils (Bld) [#/Vol] 7.2 10 3/uL 1.4-6.5 [facility] Neutrophils/100 WBC Auto (Bl d)on 08-06-2023 Neutrophils/100 WBC (Bld) 70.8 % 43.0-75.0 [facility] No Panel Informationon 08-05 Vancomycin Level Trough 13.6 ug/mL 5.0-20.0 [facility] Eosinophils # (Auto) 0.3 10 3/uL 0.0-0.7 [facility] Immature Granulocyte # (Auto) 0.04 10 3/uL 0.00-0.03 [facility] Platelet mean volume Auto (B ld) [Entitic vol]on 08-06-2023 Platelet mean volume (Bld) [Entitic vol] 12.2 fL 9.5-13.5 [facility] Platelets Auto (Bld) [#/Vol] on 08-06-2023 Platelets (Bld) [#/Vol] 190 10 3/uL 150-450 [facility] RBC Auto (Bld) [#/Vol]on RBC (Bld) [#/Vol] 3.91 10 6/uL 4.70-6.10 [facility] Serum or plasma albumin/glob ulin mass ratioon 08-06-2023 Albumin/Globulin [Mass ratio] 0.5 {ratio} [facility] Serum or plasma anion gap de terminationon 08-06-2023 Anion gap [Moles/Vol] 13.4 [facility] Automated epithelial cells c ount in urine sediment (number/area)on 08-05-2023 Epithelial cells Auto (Urine sed) [#/Area] RARE #/LPF NONE/RARE [facility] Automated leukocytes count i n urine sediment (number/area)on 08-05-2023 WBC Auto (Urine sed) [#/Area] NONE SEEN #/HPF 0-2 [facility] Automated urine specific gra vity by refractometryon 08-05-2023 Specific gravity Refractometry automated (U) [Rel density] <=1.005 1.005-1.02 5 [facility] Basophils Auto (Bld) [#/Vol] on 08-05-2023 Basophils (Bld) [#/Vol] 0.1 10 3/uL 0.0-0.1 [facility] Basophils/100 WBC Auto (Bld) on 08-05-2023 Basophils/100 WBC (Bld) 0.7 % 0.2-2.0 [facility] Bilirubin Auto test strip (U ) [Mass/Vol]on 08-05-2023 Bilirubin (U) [Mass/Vol] Negative NEGATIVE [facility] Casts typing in urine sedime nt by light microscopyon 08-05-2023 Casts LM Nom (Urine sed) NONE SEEN #/LPF NONE SEEN [facility] Color Auto (U)on 08-05-2023 Color (U) LT. YELLOW YELLOW [facility] Eosinophils/100 WBC Auto (Bl d)on 08-05-2023 Eosinophils/100 WBC (Bld) 2.5 % 0.9-7.0 [facility] Erythrocyte distribution wid th Auto (RBC) [Ratio]on 08-05-2023 Erythrocyte distribution width (RBC) [Ratio] 16.8 % 11.0-15.0 [facility] Estimated glomerular filtrat ion rate (GFR) non- Americanon 08-05-2023 GFR/1.73 sq M.predicted among non-blacks MDRD (S/P/Bld) [Vol rate/Area] 42 mL/min/{1.73_m2} >=60 [facility] Globulin Calc (S) [Mass/Vol] on 08-05-2023 Globulin (S) [Mass/Vol] 4.1 g/dL [facility] Glucose mean value [Mass/vol ume] in Blood Estimated from glycated hemoglobinon 08-05-2023 Average glucose Estimated from glycated hemoglobin (Bld) [Mass/Vol] 214 mg/dL [facility] Hematocrit Auto (Bld) [Volum e fraction]on 08-05-2023 Hematocrit (Bld) [Volume fraction] 31.8 % 42.0-54.0 [facility] Hemoglobin [Mass/volume] in Bloodon 08-05-2023 Hemoglobin (Bld) [Mass/Vol] 9.4 g/dL 14.0-18.0 [facility] Ketones Auto test strip (U) [Mass/Vol]on 08-05-2023 Ketones (U) [Mass/Vol] Negative NEGATIVE [facility] Laboratory - Chemistry and C hemistry - challengeon 08-05-2023 Albumin [Mass/Vol] 2.3 g/dL 3.4-5.0 [facility] ALP [Catalytic activity/Vol] 111 U/L 46-116 [facility] ALT [Catalytic activity/Vol] 11 U/L 16-63 [facility] AST [Catalytic activity/Vol] 11 U/L 15-37 [facility] Bilirubin [Mass/Vol] 0.5 mg/dL 0.2-1.0 [facility] Calcium [Mass/Vol] 8.1 mg/dL 8.5-10.1 [facility] Chloride [Moles/Vol] 101 mmol/L 98-107 [facility] CO2 [Moles/Vol] 25.6 mmol/L 21.0-32.0 [facility] Creatinine [Mass/Vol] 1.68 mg/dL 0.70-1.30 [facility] GFR/1.73 sq M.predicted MDRD (S/P/Bld) [Vol rate/Area] 51 mL/min/{1.73_m2} >=60 [facility] Glucose [Mass/Vol] 111 mg/dL 74-106 [facility] Potassium [Moles/Vol] 3.7 mmol/L 3.5-5.1 [facility] Protein [Mass/Vol] 6.4 g/dL 6.4-8.2 [facility] Sodium [Moles/Vol] 138 mmol/L 136-145 [facility] Urea nitrogen [Mass/Vol] 17.0 mg/dL 7.0-18.0 [facility] Urea nitrogen/Creatinine [Mass ratio] 10.1 mg/mg [facility] Laboratory - Hematology and Cell countson 08-05-2023 HbA1c (Bld) [Mass fraction] 9.1 % 4.5-6.2 [facility] Comment on above: ADA RECOMMENDED LIMI T 4.0 - 6.0ADA THERAPEUTIC TARGET < 7.0ACTION SUGGESTED> 7.0 Immature granulocytes/100 WBC (Bld) 0.4 % 0.0-0.5 [facility] Laboratory - Microbiology an d Antimicrobial susceptibilityOrdered By: Jenaro Lynch on 08-05-2023 Microscopic observation Gram stain Nom (Unsp spec) [facility] Leukocytes [#/volume] correc jorge for nucleated erythrocytes in Blood by Automated counon 08-05-2023 WBC corrected for nucl RBC Auto (Bld) [#/Vol] 12.3 10 3/uL 4.0-11.0 [facility] Lymphocytes Auto (Bld) [#/Vo l]on 08-05-2023 Lymphocytes (Bld) [#/Vol] 1.5 10 3/uL 1.2-3.8 [facility] Lymphocytes/100 WBC Auto (Bl d)on 08-05-2023 Lymphocytes/100 WBC (Bld) 11.8 % 20.5-60.0 [facility] MCH Auto (RBC) [Entitic mass ]on 08-05-2023 MCH (RBC) [Entitic mass] 22.4 pg 25.9-34.0 [facility] MCHC Auto (RBC) [Mass/Vol]on 08-05-2023 MCHC (RBC) [Mass/Vol] 29.6 g/dL 29.9-35.2 [facility] MCV Auto (RBC) [Entitic vol] on 08-05-2023 MCV (RBC) [Entitic vol] 75.9 fL 80.0-94.0 [facility] Monocytes Auto (Bld) [#/Vol] on 08-05-2023 Monocytes (Bld) [#/Vol] 1.3 10 3/uL 0.3-0.8 [facility] Monocytes/100 WBC Auto (Bld) on 08-05-2023 Monocytes/100 WBC (Bld) 10.7 % 1.7-12.0 [facility] Mucus LM Ql (Urine sed)on Mucus Ql (Urine sed) NONE SEEN NONE SEEN [facility] Neutrophils Auto (Bld) [#/Vo l]on 08-05-2023 Neutrophils (Bld) [#/Vol] 9.1 10 3/uL 1.4-6.5 [facility] Neutrophils/100 WBC Auto (Bl d)on 08-05-2023 Neutrophils/100 WBC (Bld) 73.9 % 43.0-75.0 [facility] No Panel Informationon 08-04 Eosinophils # (Auto) 0.3 10 3/uL 0.0-0.7 [facility] Immature Granulocyte # (Auto) 0.05 10 3/uL 0.00-0.03 [facility] Platelet mean volume Auto (B ld) [Entitic vol]on 08-05-2023 Platelet mean volume (Bld) [Entitic vol] 11.2 fL 9.5-13.5 [facility] Platelets Auto (Bld) [#/Vol] on 08-05-2023 Platelets (Bld) [#/Vol] 184 10 3/uL 150-450 [facility] Protein Auto test strip (U) [Mass/Vol]on 08-05-2023 Protein (U) [Mass/Vol] Negative NEG/TRACE [facility] RBC Auto (Bld) [#/Vol]on RBC (Bld) [#/Vol] 4.19 10 6/uL 4.70-6.10 [facility] Serum or plasma albumin/glob ulin mass ratioon 08-05-2023 Albumin/Globulin [Mass ratio] 0.6 {ratio} [facility] Serum or plasma anion gap de terminationon 08-05-2023 Anion gap [Moles/Vol] 15.1 mmol/L [facility] Specific gravity Auto test s trip (U) [Rel density]on 08-05-2023 Specific gravity (U) [Rel density] CLEAR CLEAR [facility] Urine bacteria detection by automated methodon 08-05-2023 Bacteria Auto Ql (U) TRACE #/HPF NONE SEEN [facility] Urine glucose measurement by test strip (mass/volume)on 08-05-2023 Glucose Test strip (U) [Mass/Vol] >=1000 mg/dL NEGATIVE [facility] Urine hemoglobin detection b y automated test stripon 08-05-2023 Hemoglobin Auto test strip Ql (U) Negative NEGATIVE [facility] Urine nitrite detection by a utomated test stripon 08-05-2023 Nitrite Auto test strip Ql (U) Negative NEGATIVE [facility] Urine sediment crystal ident ification by light microscopyon 08-05-2023 Crystals LM Nom (Urine sed) None Seen #/HPF None Seen [facility] Urine sediment leukocyte cou nt by microscopy (number/high power field)on 08-05-2023 WBC LM.HPF (Urine sed) [#/Area] NONE SEEN #/HPF NONE SEEN [facility] Urobilinogen Auto test strip (U) [Mass/Vol]on 08-05-2023 Urobilinogen Qn (U) 0.2 {Brendan'U}/dL 0.2-1.0 [facility] pH Auto test strip (U)on pH (U) 6.0 [pH] 5.0-9.0 [facility] Basophils Auto (Bld) [#/Vol] on 08-04-2023 Basophils (Bld) [#/Vol] 0.1 10 3/uL 0.0-0.1 [facility] Basophils/100 WBC Auto (Bld) on 08-04-2023 Basophils/100 WBC (Bld) 0.8 % 0.2-2.0 [facility] Eosinophils/100 WBC Auto (Bl d)on 08-04-2023 Eosinophils/100 WBC (Bld) 2.8 % 0.9-7.0 [facility] Erythrocyte distribution wid th Auto (RBC) [Ratio]on 08-04-2023 Erythrocyte distribution width (RBC) [Ratio] 16.9 % 11.0-15.0 [facility] Estimated glomerular filtrat ion rate (GFR) non- Americanon 08-04-2023 GFR/1.73 sq M.predicted among non-blacks MDRD (S/P/Bld) [Vol rate/Area] 33 mL/min/{1.73_m2} >=60 [facility] Globulin Calc (S) [Mass/Vol] on 08-04-2023 Globulin (S) [Mass/Vol] 4.4 g/dL [facility] Hematocrit Auto (Bld) [Volum e fraction]on 08-04-2023 Hematocrit (Bld) [Volume fraction] 32.6 % 42.0-54.0 [facility] Hemoglobin [Mass/volume] in Bloodon 08-04-2023 Hemoglobin (Bld) [Mass/Vol] 9.6 g/dL 14.0-18.0 [facility] INR in Platelet poor plasma by Coagulation assayon 08-04-2023 INR Coag (PPP) [Relative time] 1.05 {INR} [facility] Comment on above: DESIRED INR:2.0-3.0 CONDITIONS NOT LISTED BELOW2.5-3.5 FOR PROSTHETIC HEART VALVE REPLACEMENT2.5-3.5 RECURRENT THROMBOSIS Laboratory - Chemistry and C hemistry - challengeon 08-04-2023 Albumin [Mass/Vol] 2.4 g/dL 3.4-5.0 [facility] ALP [Catalytic activity/Vol] 109 U/L 46-116 [facility] ALT [Catalytic activity/Vol] 9 U/L 16-63 [facility] AST [Catalytic activity/Vol] U/L 15-37 [facility] Bilirubin [Mass/Vol] 0.4 mg/dL 0.2-1.0 [facility] Calcium [Mass/Vol] 8.0 mg/dL 8.5-10.1 [facility] Chloride [Moles/Vol] 96 mmol/L 98-107 [facility] CO2 [Moles/Vol] 29.2 mmol/L 21.0-32.0 [facility] Creatinine [Mass/Vol] 2.06 mg/dL 0.70-1.30 [facility] GFR/1.73 sq M.predicted MDRD (S/P/Bld) [Vol rate/Area] 40 mL/min/{1.73_m2} >=60 [facility] Glucose [Mass/Vol] 329 mg/dL 74-106 [facility] Potassium [Moles/Vol] 3.5 mmol/L 3.5-5.1 [facility] Protein [Mass/Vol] 6.8 g/dL 6.4-8.2 [facility] Sodium [Moles/Vol] 132 mmol/L 136-145 [facility] Urea nitrogen [Mass/Vol] 20.0 mg/dL 7.0-18.0 [facility] Urea nitrogen/Creatinine [Mass ratio] 9.7 mg/mg [facility] Laboratory - Hematology and Cell countson 08-04-2023 ESR (Bld) [Velocity] 89 mm/h <=20 [facility] Immature granulocytes/100 WBC (Bld) 0.3 % 0.0-0.5 [facility] Laboratory - Microbiology an d Antimicrobial susceptibilityOrdered By: Jenaro Lynch on 08-04-2023 Microscopic observation Gram stain Nom (Unsp spec) [facility] Leukocytes [#/volume] correc jorge for nucleated erythrocytes in Blood by Automated counon 08-04-2023 WBC corrected for nucl RBC Auto (Bld) [#/Vol] 11.6 10 3/uL 4.0-11.0 [facility] Lymphocytes Auto (Bld) [#/Vo l]on 08-04-2023 Lymphocytes (Bld) [#/Vol] 1.7 10 3/uL 1.2-3.8 [facility] Lymphocytes/100 WBC Auto (Bl d)on 08-04-2023 Lymphocytes/100 WBC (Bld) 14.9 % 20.5-60.0 [facility] MCH Auto (RBC) [Entitic mass ]on 08-04-2023 MCH (RBC) [Entitic mass] 22.3 pg 25.9-34.0 [facility] MCHC Auto (RBC) [Mass/Vol]on 08-04-2023 MCHC (RBC) [Mass/Vol] 29.4 g/dL 29.9-35.2 [facility] MCV Auto (RBC) [Entitic vol] on 08-04-2023 MCV (RBC) [Entitic vol] 75.8 fL 80.0-94.0 [facility] Monocytes Auto (Bld) [#/Vol] on 08-04-2023 Monocytes (Bld) [#/Vol] 1.2 10 3/uL 0.3-0.8 [facility] Monocytes/100 WBC Auto (Bld) on 08-04-2023 Monocytes/100 WBC (Bld) 10.4 % 1.7-12.0 [facility] Neutrophils Auto (Bld) [#/Vo l]on 08-04-2023 Neutrophils (Bld) [#/Vol] 8.2 10 3/uL 1.4-6.5 [facility] Neutrophils/100 WBC Auto (Bl d)on 08-04-2023 Neutrophils/100 WBC (Bld) 70.8 % 43.0-75.0 [facility] No Panel InformationOrdered By: Jenaro Lynch on 08-04-2023 Blood Culture 2 [facility] Blood Culture 1 [facility] Wound Culture [facility] No Panel Informationon 08-03 Aerobic & Anaerobic Susceptibility [facility] Miscellaneous Test Comment See comment [facility] Comment on above: Specimen Source: JONO T - Foot - Foot - 603.950 C-Reactive Protein, Quantitative 11.62 mg/dL <=0.50 [facility] Eosinophils # (Auto) 0.3 10 3/uL 0.0-0.7 [facility] Immature Granulocyte # (Auto) 0.04 10 3/uL 0.00-0.03 [facility] Platelet mean volume Auto (B ld) [Entitic vol]on 08-04-2023 Platelet mean volume (Bld) [Entitic vol] 11.5 fL 9.5-13.5 [facility] Platelets Auto (Bld) [#/Vol] on 08-04-2023 Platelets (Bld) [#/Vol] 206 10 3/uL 150-450 [facility] Prothrombin time (PT)on PT Coag (PPP) [Time] 11.1 s 9.0-11.6 [facility] RBC Auto (Bld) [#/Vol]on RBC (Bld) [#/Vol] 4.30 10 6/uL 4.70-6.10 [facility] Serum or plasma albumin/glob ulin mass ratioon 08-04-2023 Albumin/Globulin [Mass ratio] 0.5 {ratio} [facility] Serum or plasma anion gap de terminationon 08-04-2023 Anion gap [Moles/Vol] 10.3 [facility] Serum procalcitonin measurem enton 08-04-2023 Procalcitonin [Mass/Vol] 0.10 ng/mL 0.00-0.50 [facility] Basophils Auto (Bld) [#/Vol] on 08-03-2023 Basophils (Bld) [#/Vol] 0.1 10 3/uL 0.0-0.1 [facility] Basophils/100 WBC Auto (Bld) on 08-03-2023 Basophils/100 WBC (Bld) 0.7 % 0.2-2.0 [facility] Eosinophils/100 WBC Auto (Bl d)on 08-03-2023 Eosinophils/100 WBC (Bld) 1.8 % 0.9-7.0 [facility] Erythrocyte distribution wid th Auto (RBC) [Ratio]on 08-03-2023 Erythrocyte distribution width (RBC) [Ratio] 17.0 % 11.0-15.0 [facility] Estimated glomerular filtrat ion rate (GFR) non- Americanon 08-03-2023 GFR/1.73 sq M.predicted among non-blacks MDRD (S/P/Bld) [Vol rate/Area] 27 mL/min/{1.73_m2} >=60 [facility] Globulin Calc (S) [Mass/Vol] on 08-03-2023 Globulin (S) [Mass/Vol] 5.0 g/dL [facility] Hematocrit Auto (Bld) [Volum e fraction]on 08-03-2023 Hematocrit (Bld) [Volume fraction] 38.9 % 42.0-54.0 [facility] Hemoglobin [Mass/volume] in Bloodon 08-03-2023 Hemoglobin (Bld) [Mass/Vol] 11.8 g/dL 14.0-18.0 [facility] Laboratory - Chemistry and C hemistry - challengeon 08-03-2023 Lactate [Moles/Vol] 1.6 mmol/L 0.4-2.0 [facility] Albumin [Mass/Vol] 3.3 g/dL 3.4-5.0 [facility] ALP [Catalytic activity/Vol] 134 U/L 46-116 [facility] ALT [Catalytic activity/Vol] 13 U/L 16-63 [facility] AST [Catalytic activity/Vol] U/L 15-37 [facility] Bilirubin [Mass/Vol] 0.6 mg/dL 0.2-1.0 [facility] Calcium [Mass/Vol] 9.3 mg/dL 8.5-10.1 [facility] Chloride [Moles/Vol] 92 mmol/L 98-107 [facility] CO2 [Moles/Vol] 31.0 mmol/L 21.0-32.0 [facility] Creatinine [Mass/Vol] 2.45 mg/dL 0.70-1.30 [facility] GFR/1.73 sq M.predicted MDRD (S/P/Bld) [Vol rate/Area] 33 mL/min/{1.73_m2} >=60 [facility] Glucose [Mass/Vol] 310 mg/dL 74-106 [facility] Potassium [Moles/Vol] 3.7 mmol/L 3.5-5.1 [facility] Protein [Mass/Vol] 8.3 g/dL 6.4-8.2 [facility] Sodium [Moles/Vol] 133 mmol/L 136-145 [facility] Urea nitrogen [Mass/Vol] 23.0 mg/dL 7.0-18.0 [facility] Urea nitrogen/Creatinine [Mass ratio] 9.4 mg/mg [facility] Laboratory - Hematology and Cell countson 08-03-2023 ESR (Bld) [Velocity] 118 mm/h <=20 [facility] Immature granulocytes/100 WBC (Bld) 0.4 % 0.0-0.5 [facility] Leukocytes [#/volume] correc jorge for nucleated erythrocytes in Blood by Automated counon 08-03-2023 WBC corrected for nucl RBC Auto (Bld) [#/Vol] 14.6 10 3/uL 4.0-11.0 [facility] Lymphocytes Auto (Bld) [#/Vo l]on 08-03-2023 Lymphocytes (Bld) [#/Vol] 2.1 10 3/uL 1.2-3.8 [facility] Lymphocytes/100 WBC Auto (Bl d)on 08-03-2023 Lymphocytes/100 WBC (Bld) 14.3 % 20.5-60.0 [facility] MCH Auto (RBC) [Entitic mass ]on 08-03-2023 MCH (RBC) [Entitic mass] 22.6 pg 25.9-34.0 [facility] MCHC Auto (RBC) [Mass/Vol]on 08-03-2023 MCHC (RBC) [Mass/Vol] 30.3 g/dL 29.9-35.2 [facility] MCV Auto (RBC) [Entitic vol] on 08-03-2023 MCV (RBC) [Entitic vol] 74.4 fL 80.0-94.0 [facility] Monocytes Auto (Bld) [#/Vol] on 08-03-2023 Monocytes (Bld) [#/Vol] 1.4 10 3/uL 0.3-0.8 [facility] Monocytes/100 WBC Auto (Bld) on 08-03-2023 Monocytes/100 WBC (Bld) 9.4 % 1.7-12.0 [facility] Neutrophils Auto (Bld) [#/Vo l]on 08-03-2023 Neutrophils (Bld) [#/Vol] 10.7 10 3/uL 1.4-6.5 [facility] Neutrophils/100 WBC Auto (Bl d)on 08-03-2023 Neutrophils/100 WBC (Bld) 73.4 % 43.0-75.0 [facility] No Panel Informationon C-Reactive Protein, Quantitative 14.63 mg/dL <=0.50 [facility] Eosinophils # (Auto) 0.3 10 3/uL 0.0-0.7 [facility] Immature Granulocyte # (Auto) 0.06 10 3/uL 0.00-0.03 [facility] Venous Blood Partial Pressure CO2 44.8 mm[Hg] 40.0-52.0 [facility] Venous Blood pH 7.432 7.330-7.43 0 [facility] No Panel InformationOrdered By: Jenaro Lynch on 08-03-2023 Blood Culture 2 [facility] Blood Culture 1 [facility] Platelet mean volume Auto (B ld) [Entitic vol]on 08-03-2023 Platelet mean volume (Bld) [Entitic vol] 11.4 fL 9.5-13.5 [facility] Platelets Auto (Bld) [#/Vol] on 08-03-2023 Platelets (Bld) [#/Vol] 252 10 3/uL 150-450 [facility] RBC Auto (Bld) [#/Vol]on RBC (Bld) [#/Vol] 5.23 10 6/uL 4.70-6.10 [facility] Serum or plasma albumin/glob ulin mass ratioon 08-03-2023 Albumin/Globulin [Mass ratio] 0.7 {ratio} [facility] Serum or plasma anion gap de terminationon 08-03-2023 Anion gap [Moles/Vol] 13.7 mmol/L [facility] US venous duplex LE BIon [place] [address] Ultrasound Report Signed Patient: Solomon Feldman SR MR#: [id number] : 1965 Acct:[id number] Age/Sex: 57 / M ADM Date: 07/12/23 Loc: ER Room: Type: [facility] ER Attending Dr: Ordering Provider: Nancy [...] Howard Boss MD07/13/2023 11:56 AM Dictation Location: [id number] Tech: Nancy Pantoja Transcribed By: BOB 07/13/23 1156 Dictated By: Howard Boss MD 07/13/23 1156 Signed By: 07/13/[address] [facility] US venous duplex UE LTon US venous duplex UE LT [facility] [place] [address] Ultrasound Report Signed Patient: Solomon Feldman SR MR#: [id number] : 1965 Acct:[id number] Age/Sex: 57 / M ADM Date: 07/12/23 Loc: ER Room: Type: [facility] ER Attending Dr: Ordering Provider: Nancy [...] Howard Boss MD07/13/2023 11:56 AM Dictation Location: [place] [address] Tech: Nancy Pantoja Transcribed By: BOB 07/13/23 1156 Dictated By: Howard Boss MD 07/13/23 1155 Signed By: 07/13/[address] [facility] Activated partial thrombopla stin time (aPTT) in platelet poor plasma by coagulation aOrdered By: Nancy Wilson on 07-12-2023 aPTT Coag (PPP) [Time] 29.4 s 25.1-36.5 [facility] Comment on above: A hematocrit value g reater than 55% may lead to inaccurate results in coagulation testing. Patients having hematocrit values >55% require a special collection tube for coagulation studies. Please contact the laboratory at [phone] for redraw instructions. Alanine aminotransferase [En zymatic activity/volume] in Serum or PlasmaOrdered By: Nancy Wilson on 07-12-2023 ALT [Catalytic activity/Vol] 9 U/L 7-52 [facility] Albumin [Mass/volume] in Ser um or Plasma by Bromocresol green (BCG) dye binding methoOrdered By: Nancy Wilson on 07-12-2023 Albumin BCG dye [Mass/Vol] 3.9 g/dL 3.5-5.7 [facility] Alkaline phosphatase [Enzyma tic activity/volume] in Serum or PlasmaOrdered By: Nancy Wilson on 07-12-2023 ALP [Catalytic activity/Vol] 106 U/L 34-104 [facility] Aspartate aminotransferase [ Enzymatic activity/volume] in Serum or PlasmaOrdered By: Nancy Wilson on 07-12-2023 AST [Catalytic activity/Vol] 8 U/L 13-39 [facility] B-Type Natriuretic Peptideon 07-12-2023 Natriuretic peptide B (Bld) [Mass/Vol] 34.0 pg/mL Normal 5-[address] [facility] Comment on above: Result Comment: PERF ORMED BY: [facility] [address] [place] [address] PATHOLOGIST WORKING [employer]ORD LOBATO M.D. Performed By: #### B TMH TEACHER, CMP, HS TROP, CK, PTT, CBC, PT ####[facility] [id number] [place] [id number] [facility] Basophils Auto (Bld) [#/Vol] Ordered By: Nancy Wilson on 07-12-2023 Basophils (Bld) [#/Vol] 0.1 10*3/uL 0.0-0.2 [facility] Basophils/100 WBC Auto (Bld) Ordered By: Nancy Wilson on 07-12-2023 Basophils/100 WBC (Bld) 1.1 % . [facility] Bilirubin.total [Mass/volume ] in Serum or PlasmaOrdered By: Nancy Wilson on 07-12-2023 Bilirubin [Mass/Vol] 0.4 mg/dL 0.3-1.0 [facility] Calcium [Mass/volume] in Ser um or PlasmaOrdered By: Nancy Wilson on 07-12-2023 Calcium [Mass/Vol] 8.5 mg/dL 8.6-10.3 [facility] Carbon dioxide, total [Moles /volume] in Serum or PlasmaOrdered By: Nancy Wilson on 07-12-2023 CO2 [Moles/Vol] 24.5 mmol/L 21.0-31.0 [facility] Chloride [Moles/volume] in S ilia or PlasmaOrdered By: Nancy Wilson on 07-12-2023 Chloride [Moles/Vol] 102 mmol/L 98-107 [facility] Complete Blood Count Auto Di ffon 07-12-2023 Basophils (Bld) [#/Vol] 0.1 10*3/uL Normal 0.0-0.[address] [facility] Comment on above: Result Comment: PERF ORMED BY: [facility] [address] [facility] [place] [address] PATHOLOGIST WORKING [employer] LOBATO M.D. Performed By: #### B TMH TEACHER, CMP, HS TROP, CK, PTT, CBC, PT ####[address] Basophils/100 WBC (Bld) 1.1 % Normal . [facility] Comment on above: Performed By: #### B TMH TEACHER, CMP, HS TROP, CK, PTT, CBC, PT ####[address] Eosinophils (Bld) [#/Vol] 0.3 10*3/uL Normal 0.0-0.[address] [facility] Comment on above: Performed By: #### B TMH TEACHER, CMP, HS TROP, CK, PTT, CBC, PT ####[address] Eosinophils/100 WBC (Bld) 3.3 % Normal . [facility] Comment on above: Performed By: #### B TMH TEACHER, CMP, HS TROP, CK, PTT, CBC, PT ####[address] Erythrocyte distribution width (RBC) [Ratio] 17.1 % High 12.0-14.[address] [facility] Comment on above: Performed By: #### B TMH TEACHER, CMP, HS TROP, CK, PTT, CBC, PT ####[address] Hematocrit (Bld) [Volume fraction] 32.7 % Low 38.8-50.[address] [facility] Comment on above: Performed By: #### B TMH TEACHER, CMP, HS TROP, CK, PTT, CBC, PT ####[address] Hemoglobin (Bld) [Mass/Vol] 10.6 g/dL Low 13.0-17.[address] [facility] Comment on above: Performed By: #### B TMH TEACHER, CMP, HS TROP, CK, PTT, CBC, PT ####[address] Lymphocytes (Bld) [#/Vol] 1.9 10*3/uL Normal 1.00-4.[address] [facility] Comment on above: Performed By: #### B TMH TEACHER, CMP, HS TROP, CK, PTT, CBC, PT ####[address] Lymphocytes/100 WBC (Bld) 20.0 % Normal . [facility] Comment on above: Performed By: #### B TMH TEACHER, CMP, HS TROP, CK, PTT, CBC, PT ####[address] MCH (RBC) [Entitic mass] 22.8 pg Low 27.5-35.[address] [facility] Comment on above: Performed By: #### B TMH TEACHER, CMP, HS TROP, CK, PTT, CBC, PT ####[address] MCV (RBC) [Entitic vol] 70.6 fL Low 83.5-[address] [facility] Comment on above: Performed By: #### B TMH TEACHER, CMP, HS TROP, CK, PTT, CBC, PT ####[address] Mean Corpuscular HGB Conc 32.4 g/dL Low 32.5-35.[address] [facility] Comment on above: Performed By: #### B TMH TEACHER, CMP, HS TROP, CK, PTT, CBC, PT ####[address] Monocytes (Bld) [#/Vol] 1.0 10*3/uL High 0.0-0.[address] [facility] Comment on above: Performed By: #### B TMH TEACHER, CMP, HS TROP, CK, PTT, CBC, PT ####[address] Monocytes/100 WBC (Bld) 18.12 % Normal 0.00-20.[address] [facility] Comment on above: Performed By: #### B TMH TEACHER, CMP, HS TROP, CK, PTT, CBC, PT ####[address] Monocytes/100 WBC (Bld) 10.2 % Normal . [facility] Comment on above: Performed By: #### B TMH TEACHER, CMP, HS TROP, CK, PTT, CBC, PT ####[address] Neutrophils (Bld) [#/Vol] 6.2 10*3/uL Normal 1.8-7.[address] [facility] Comment on above: Performed By: #### B TMH TEACHER, CMP, HS TROP, CK, PTT, CBC, PT ####[address] Neutrophils/100 WBC (Bld) 65.4 % Normal . [facility] Comment on above: Performed By: #### B TMH TEACHER, CMP, HS TROP, CK, PTT, CBC, PT ####[address] NRBC% 0.1 /100{WBC} Normal 0-0.5 [facility] Comment on above: Performed By: #### B TMH TEACHER, CMP, HS TROP, CK, PTT, CBC, PT ####[address] Platelet mean volume (Bld) [Entitic vol] 9.1 fL Normal 6.6-10.1 [facility] Comment on above: Performed By: #### B TMH TEACHER, CMP, HS TROP, CK, PTT, CBC, PT ####[address] Platelets (Bld) [#/Vol] 233 10*3/uL Normal 150-[address] [facility] Comment on above: Performed By: #### B TMH TEACHER, CMP, HS TROP, CK, PTT, CBC, PT ####[address] RBC (Bld) [#/Vol] 4.63 10*6/uL Normal 3.90-5.60 [facility] Comment on above: Performed By: #### B TMH TEACHER, CMP, HS TROP, CK, PTT, CBC, PT ####[address] WBC (Bld) [#/Vol] 9.5 10*3/uL Normal 4.1-10.5 [facility] Comment on above: Performed By: #### B TMH TEACHER, CMP, HS TROP, CK, PTT, CBC, PT ####[address] Comprehensive Metabolic Pane bárbara 07-12-2023 Albumin [Mass/Vol] 3.9 g/dL Normal 3.5-5.7 [facility] Comment on above: Performed By: #### B TMH TEACHER, CMP, HS TROP, CK, PTT, CBC, PT ####[address] Albumin/Globulin [Mass ratio] 1.3 {ratio} Normal [facility] Comment on above: Performed By: #### B TMH TEACHER, CMP, HS TROP, CK, PTT, CBC, PT ####[address] ALP [Catalytic activity/Vol] 106 U/L High 34-[address] [facility] Comment on above: Performed By: #### B TMH TEACHER, CMP, HS TROP, CK, PTT, CBC, PT ####[address] ALT [Catalytic activity/Vol] 9 U/L Normal 7-[address] [facility] Comment on above: Performed By: #### B TMH TEACHER, CMP, HS TROP, CK, PTT, CBC, PT ####[address] Anion gap [Moles/Vol] 13.4 mmol/L Normal 6.0-15.[address] [facility] Comment on above: Performed By: #### B TMH TEACHER, CMP, HS TROP, CK, PTT, CBC, PT ####[address] AST [Catalytic activity/Vol] 8 U/L Low 13-[address] [facility] Comment on above: Performed By: #### B TMH TEACHER, CMP, HS TROP, CK, PTT, CBC, PT ####[address] Bilirubin [Mass/Vol] 0.4 mg/dL Normal 0.3-1.[address] [facility] Comment on above: Performed By: #### B TMH TEACHER, CMP, HS TROP, CK, PTT, CBC, PT ####[address] Calcium [Mass/Vol] 8.5 mg/dL Low 8.6-10.3 [facility] Comment on above: Performed By: #### B TMH TEACHER, CMP, HS TROP, CK, PTT, CBC, PT ####[address] Chloride [Moles/Vol] 102 mmol/L Normal 98-[address] [facility] Comment on above: Performed By: #### B TMH TEACHER, CMP, HS TROP, CK, PTT, CBC, PT ####[address] CO2 [Moles/Vol] 24.5 mmol/L Normal 21.0-31.0 [facility] Comment on above: Performed By: #### B TMH TEACHER, CMP, HS TROP, CK, PTT, CBC, PT ####[place] [id number] [place] [id number] [facility] Creatinine [Mass/Vol] 1.82 mg/dL High 0.70-1.[address] [facility] Comment on above: Performed By: #### B TMH TEACHER, CMP, HS TROP, CK, PTT, CBC, PT ####[place] [address] Creatinine Clr Calc Pharmacy 54.[address] [facility] Comment on above: Result Comment: PERF ORMED BY: [facility] [address] [place] [address] PATHOLOGIST WORKING [employer] CLIFFORD LOBATO M.D. Performed By: #### B TMH TEACHER, CMP, HS TROP, CK, PTT, CBC, PT ####[address] GFR/1.73 sq M.predicted MDRD (S/P/Bld) [Vol rate/Area] 42.789 mL/min/{1.73_m2} Normal [facility] Group Comment on above: Performed By: #### B TMH TEACHER, CMP, HS TROP, CK, PTT, CBC, PT ####[address] Globulin (S) [Mass/Vol] 3.1 g/dL Normal [facility] Comment on above: Performed By: #### B TMH TEACHER, CMP, HS TROP, CK, PTT, CBC, PT ####[place] [id number] [facility] Glucose [Mass/Vol] 302 mg/dL High 70-100 [facility] Comment on above: Result Comment: [place] Glucose Reference Range is dependent on time and content of last meal. Glucose of more than 200 mg/dL in a nonstressed, ambulatory subject supports the diagnosis of Diabetes Mellitus. ADA recommended reference range Performed By: #### B TMH TEACHER, CMP, HS TROP, CK, PTT, CBC, PT ####[place] [id number] [facility] Potassium [Moles/Vol] 3.9 mmol/L Normal 3.5-5.[address] [facility] Comment on above: Performed By: #### B TMH TEACHER, CMP, HS TROP, CK, PTT, CBC, PT ####[place] [address] [place] [id number] [facility] Protein [Mass/Vol] 7.0 g/dL Normal 6.4-8.9 [facility] Comment on above: Performed By: #### B TMH TEACHER, CMP, HS TROP, CK, PTT, CBC, PT ####[place] [id number] [facility] Sodium [Moles/Vol] 136 mmol/L Normal 136-145 [facility] Comment on above: Performed By: #### B TMH TEACHER, CMP, HS TROP, CK, PTT, CBC, PT ####[place] [address] [place] [id number] [facility] Urea nitrogen [Mass/Vol] 16 mg/dL Normal 7-[address] [facility] Comment on above: Performed By: #### B TMH TEACHER, CMP, HS TROP, CK, PTT, CBC, PT ####[address] [address] [facility] Creatine Kinaseon 07-12-2023 CK [Catalytic activity/Vol] 55 U/L Normal 30-[address] [facility] Comment on above: Performed By: #### B TMH TEACHER, CMP, HS TROP, CK, PTT, CBC, PT ####[place] [id number] [facility] Creatine kinase [Enzymatic a ctivity/volume] in Serum or PlasmaOrdered By: Nancy Wilson on 07-12-2023 CK [Catalytic activity/Vol] 55 U/L 30-223 [facility] Creatinine [Mass/volume] in Serum or PlasmaOrdered By: Nancy Wilson on 07-12-2023 Creatinine [Mass/Vol] 1.82 mg/dL 0.70-1.30 [facility] ECG 12 lead ECGon 07-12-2023 ECG 12 lead ECG [facility] [address] [place] [address] [place] [address] Electrocardiograph Report Signed Patient: Solomon Feldman María CHRISTIAN MR#: [id number] : 1965 Acct:[id number] Age/Sex: 57 / M ADM Date: 07/12/23 Loc: ER Room: Type: [facility] ER Attending Dr: Ordering Provider: Nancy [...] Nancy Wilson MD 01/[address] [facility] Eosinophils Auto (Bld) [#/Vo l]Ordered By: Nancy Wilson on 07-12-2023 Eosinophils (Bld) [#/Vol] 0.3 10*3/uL 0.0-0.45 [facility] Eosinophils/100 WBC Auto (Bl d)Ordered By: Nancy Wilson on 07-12-2023 Eosinophils/100 WBC (Bld) 3.3 % . [facility] Erythrocyte distribution wid th Auto (RBC) [Ratio]Ordered By: Nancy Wilson on 07-12-2023 Erythrocyte distribution width (RBC) [Ratio] 17.1 % 12.0-14.8 [facility] Globulin Calc (S) [Mass/Vol] Ordered By: Nancy Wilson on 07-12-2023 Globulin (S) [Mass/Vol] 3.1 g/dL [facility] Glucose [Mass/volume] in Ser um or PlasmaOrdered By: Nancy Wilson on 07-12-2023 Glucose [Mass/Vol] 302 mg/dL 70-100 [facility] Comment on above: ADA recommended refe rence rangeRandom Glucose Reference Range is dependent on time and content of last meal. Glucose of more than 200 mg/dL in a nonstressed, ambulatory subject supports the diagnosis of Diabetes Mellitus. Hematocrit Auto (Bld) [Volum e fraction]Ordered By: Nancy Wilson on 07-12-2023 Hematocrit (Bld) [Volume fraction] 32.7 % 38.8-50.0 [facility] Hemoglobin [Mass/volume] in BloodOrdered By: Nancy Wilson on 07-12-2023 Hemoglobin (Bld) [Mass/Vol] 10.6 g/dL 13.0-17.0 [facility] INR in Platelet poor plasma by Coagulation assayOrdered By: Nancy Wilson on 07-12-2023 INR Coag (PPP) [Relative time] 1.1 {INR} [facility] Comment on above: INR Therapeutic [...] RBC Auto (Bld) [#/Vol] 9.5 10*3/uL 4.1-10.5 [facility] Lymphocytes Auto (Bld) [#/Vo l]Ordered By: Nancy Wilson on 07-12-2023 Lymphocytes (Bld) [#/Vol] 1.9 10*3/uL 1.00-4.8 [facility] Lymphocytes/100 WBC Auto (Bl d)Ordered By: Nancy Wilson on 07-12-2023 Lymphocytes/100 WBC (Bld) 20.0 % . [facility] MCH Auto (RBC) [Entitic mass ]Ordered By: Nancy Wilson on 07-12-2023 MCH (RBC) [Entitic mass] 22.8 pg 27.5-35.2 [facility] MCHC Auto (RBC) [Mass/Vol]Or dered By: Nancy Wilson on 07-12-2023 MCHC (RBC) [Mass/Vol] 32.4 g/dL 32.5-35.6 [facility] MCV Auto (RBC) [Entitic vol] Ordered By: Nancy Wilson on 07-12-2023 MCV (RBC) [Entitic vol] 70.6 fL 83.5-101 [facility] Monocyte distribution width [Entitic volume] in Blood by AutomatedOrdered By: Nancy Wilson on 07-12-2023 Monocyte distribution width Auto (Bld) [Entitic vol] 18.12 % 0.00-20.00 [facility] Monocytes Auto (Bld) [#/Vol] Ordered By: Nancy Wilson on 07-12-2023 Monocytes (Bld) [#/Vol] 1.0 10*3/uL 0.0-0.8 [facility] Monocytes/100 WBC Auto (Bld) Ordered By: Nancy Wilson on 07-12-2023 Monocytes/100 WBC (Bld) 10.2 % . [facility] Natriuretic peptide B [Mass/ Vol]Ordered By: Nancy Wilson on 07-12-2023 Natriuretic peptide B (Bld) [Mass/Vol] 34.0 pg/mL 5-100 [facility] Neutrophils Auto (Bld) [#/Vo l]Ordered By: Nancy Wilson on 07-12-2023 Neutrophils (Bld) [#/Vol] 6.2 10*3/uL 1.8-7.7 [facility] Neutrophils/100 WBC Auto (Bl d)Ordered By: Nancy Wilson on 07-12-2023 Neutrophils/100 WBC (Bld) 65.4 % . [facility] No Panel InformationOrdered By: Nancy Wilson on 07-12-2023 Estimated GFR (CKD-EPI) 42.789 mL/Min [facility] Creatinine Clearance (Chem 54.64 [facility] Nucleated erythrocytes [Pres ence] in Blood by Automated countOrdered By: Nancy Wilson on 07-12-2023 Nucleated RBC Auto Ql (Bld) 0.1 /100{WBC} 0-0.5 [facility] Partial Thromboplastin Timeo n 07-12-2023 aPTT Coag (Bld) [Time] 29.4 s Normal 25.1-36.[address] [facility] Comment on above: Result Comment: A he matocrit value greater than 55% may lead to inaccurate results in coagulation testing. Patients having hematocrit values >55% require a special collection tube for coagulation studies. Please contact the laboratory at [phone] for redraw instructions. PERFORMED BY: [facility] [address] [place] [id number] PATHOLOGIST WORKING SECOND HAND CLIFFORD LOBATO M.D. Performed By: #### B TMH TEACHER, CMP, HS TROP, CK, PTT, CBC, PT ####[facility] [address] [place] [id number] [facility] Platelet mean volume Auto (B ld) [Entitic vol]Ordered By: Nancy Wilson on 07-12-2023 Platelet mean volume (Bld) [Entitic vol] 9.1 fL 6.6-10.1 [facility] Platelets Auto (Bld) [#/Vol] Ordered By: Nancy Wilson on 07-12-2023 Platelets (Bld) [#/Vol] 233 10*3/uL 150-450 [facility] Potassium [Moles/volume] in Serum or PlasmaOrdered By: Nancy Wilson on 07-12-2023 Potassium [Moles/Vol] 3.9 mmol/L 3.5-5.1 [facility] Protein [Mass/volume] in Ser um or PlasmaOrdered By: Nancy Wilson on 07-12-2023 Protein [Mass/Vol] 7.0 g/dL 6.4-8.9 [facility] Prothrombin Time INRon 07-12 INR Coag (PPP) [Relative time] 1.1 {INR} Normal [facility] Comment on above: Result [...] 3 - 4.5 Performed By: #### B TMH TEACHER, CMP, HS TROP, CK, PTT, CBC, PT ####[facility] [place] [id number] [facility] PT Coag (PPP) [Time] 12.1 s Normal 9.0-12.[address] [facility] Comment on above: Result Comment: A he matocrit value greater than 55% may lead to inaccurate results in coagulation testing. Patients having hematocrit values >55% require a special collection tube for coagulation studies. Please contact the laboratory at [phone] for redraw instructions. Performed By: #### B TMH TEACHER, CMP, HS TROP, CK, PTT, CBC, PT ####[facility] [address] [place] [address] [facility] Prothrombin time (PT)Ordered By: Nancy Wilson on 07-12-2023 PT Coag (PPP) [Time] 12.1 s 9.0-12.9 [facility] Comment on above: A hematocrit value g reater than 55% may lead to inaccurate results in coagulation testing. Patients having hematocrit values >55% require a special collection tube for coagulation studies. Please contact the laboratory at [phone] for redraw instructions. RBC Auto (Bld) [#/Vol]Ordere d By: Nancy Wilson on 07-12-2023 RBC (Bld) [#/Vol] 4.63 10*6/uL 3.90-5.60 [facility] Serum or plasma albumin/glob ulin mass ratioOrdered By: Nancy Wilson on 07-12-2023 Albumin/Globulin [Mass ratio] 1.3 {ratio} [facility] Serum or plasma anion gap de terminationOrdered By: Nancy Wilson on 07-12-2023 Anion gap [Moles/Vol] 13.4 mmol/L 6.0-15.0 [facility] Sodium [Moles/volume] in Ser um or PlasmaOrdered By: Nancy Wilson on 07-12-2023 Sodium [Moles/Vol] 136 mmol/L 136-145 [facility] Troponin I High Sensitivityo n 07-12-2023 Troponin I High Sensitivity 4.6 pg/mL Normal 0.0-20.[address] [facility] Comment on above: Result Comment: PERF ORMED BY: [facility] [address] [place] [address] PATHOLOGIST WORKING [employer] CLIFFORD LOBATO M.D. Performed By: #### B TMH TEACHER, CMP, HS TROP, CK, PTT, CBC, PT ####[facility] [address] Troponin I.cardiac [Mass/vol ume] in Serum or Plasma by Detection limit <= 0.01 ng/Ordered By: Nancy Wilson on 07-12-2023 Troponin I.cardiac DL <= 0.01 ng/mL [Mass/Vol] 4.6 pg/mL 0.0-20.0 [facility] Urea nitrogen [Mass/volume] in Serum or PlasmaOrdered By: Nancy Wilson on 07-12-2023 Urea nitrogen [Mass/Vol] 16 mg/dL 7-25 [facility] WBC Auto (Bld) [#/Vol]Ordere d By: Nancy Wilson on 07-12-2023 WBC (Bld) [#/Vol] 9.5 10*3/uL 4.1-10.5 [facility] XR chest 1V portableon 07-12 XR chest 1V portable [facility] [address] [place] [address] XRay Report Signed Patient: Solomon Feldman MR#: [id number] : 1965 Acct:[id number] Age/Sex: 57 / M ADM Date: 07/12/23 [...] Sudeep Lind M.D.07/12/2023 5:08 PM Dictation Location: [place] [address] Transcribed By: BOB 07/12/231707 Dictated By: Sudeep Lind DO 07/12/231706 Signed By: 07/12/231707 Normal [facility] Patient Educationon 06-02-20 Patient Education [...] Follow these instructions at home: ? Take lupp-ews-tfjozcb and prescription medicines only as told by [...] the medicine (more content not included)... Normal [facility] Retail - Clinical Noteon Retail - Clinical Note [id number]#1.00TIFF Normal [facility] Urology Office/Clinic Noteon 06-02-2023 Urology Office/Clinic Note Chief Complaint S/p to Cysto HPI [place] Sp [place] [facility] [place] Has not noticed any difference- [...] Contact Information Yeyo ROWE MD, URL [address] [place] [address]- Additional Instructions: 1 month w/ cath volumes [...] heart failure) (more content not included)... Normal [facility] Comment on above: Result Comment: Elec tronically Signed By: Yeyo ROWE MD\.br\Date and Time Signed: 06/02/23 12:16 EST\.br\Electronically Co-Signed By: Mattie Foster\.br\Date and Time Co-Signed: 06/02/23 12:04 EST Patient Educationon 05-03-20 23 Patient Education Normal [facility] Pathology Noteon 05-02-2023 Pathology Note [id number]#1.00TIFF Normal [facility] Lab Reportson 04-14-2023 Lab Reports [id number]#1.00TIFF Normal [facility] Operative Reporton 11-10-202 3 Operative Report [id number]#1.00TIFF Normal [facility] Patient Correspondenceon Patient Correspondence [id number]#1.00TIFF Normal [facility] Lab Reportson 03-31-2023 Lab Reports [id number]#1.00TIFF Normal [facility] RAD - MISCon 03-31-2023 RAD - MISC [id number]#1.00TIFF Normal [facility] Patient Correspondenceon Patient Correspondence [id number]#1.00TIFF [facility] Formson 03-23-2023 Forms [id number]#1.00TIFF [facility] A1C HEMOGLOBINon 03-15-2023 HbA1c (Bld) [Mass fraction] 7.5 % [employer] Other HbA1c (Bld) [Mass fraction]o n 03-15-2023 A1C HEMOGLOBIN [facility] [employer] Other Lab Reportson 03-09-2023 Lab Reports [id number]#1.00TIFF [facility] Consultation Noteon 02-28-20 23 Consultation Note [id number]#1.00CD:12 7 [facility] Consent for Procedure/Surger yon 02-15-2023 Consent for Procedure/Surgery [id number]#1.00CD:12 7 [facility] Office Visit (Cardiology)on 02-15-2023 Follow-up visit [...] in adult Healthy Weight Tips; Status:Complete; Done: [id number] Patient Instructions Please bring all medicines, vitamins, [...] Sia HERRERA, (more content not included)... Normal [facility] Tobacco Screening.on 023 Fall risk assessment c) Not medically indicated [facility] [facility] [address] DO Work Phone: Tobacco use status CPHS b) No [facility] [address] DO Work Phone: Tobacco Screening. Yes -[facility] [address] DO Work Phone: Consent for Procedure/Surger yon 02-14-2023 Consent for Procedure/Surgery [id number]#1.00CD:1 27 [facility] Consent for Procedure/Surgery [id number]#1.00CD:1 27 [facility] Consent for Treatmenton 02-03 Consent for Treatment [id number]#1.00CD:12 7 [facility] IntraOperative Documentson 0 02-14-2023 IntraOperative Documents [id number]#1.00CD:1 27 [facility] IntraOperative Documents [id number]#1.00CD:1 27 [facility] Main OR Intraoperative Recor don 02-14-2023 Main OR Intraoperative Record IntraOp Document Type FTURO Summary Primary Physician: Yeyo ROWE MD Finalized Date/Time: 02/14/23 10:18:58 Pt. Name: GASTON CHRISTIAN, SOLOMON Aceves/Sex: 1965 Male Med Rec #: [id number] Physician: Yeyo ROWE MD Financial #: [id number] Pt. Type: O Room/Bed: / Admit/Disch: 02/14/23 08:34:46 - Institution: Case Times FTURO Entry 1 Patient Times In Room 02/14/23 09:29:00 Out Room 02/14/23 09:49:00 Procedure Times Start 02/14/23 09:42:00 Stop 02/14/23 09:45:00 Anesthesia Times Last Modified By: Mauricio STERN, Chandrika Martin 02/14/23 09:45:24 Case Attendance FTURO Entry 1 Entry 2 Entry 3 Case Attendee SOLEDAD HERRERA, Yeyo Martínez RN, Chandrika Yin TUCK POINTER HELPER, Sheri Daniel Role Performed Surgeon - Primary Bond Manager - Primary Scrub - Primary Time [...] 09:45 Chandrika Martínez RN 02/14/23 10:18 Normal [facility] Main OR Preoperative Recordo n 02-14-2023 Main OR Preoperative Record Holding Area Document Type FTURO Summary Primary Physician: Yeyo ROWE MD Finalized Date/Time: 02/14/23 09:01:37 Pt. Name: GASTON CHRISTIAN, SOLOMON Aceves/Sex: 1965 Male Med Rec #: [id number] Physician: Yeyo ROWE MD Financial #: [id number] Pt. Type: O Room/Bed: / Admit/Disch: 02/14/23 [...] By: Sheri Bolivar RN 02/14/23 09:01 Normal [facility] Operative Reporton Operative Report Patient: Joe FELDMAN [...] with antibiotic coverage, Follow up arranged. Normal [facility] Comment on above: Result Comment: Elec tronically [...] including vitamins, herbs, eye drops, creams, and escf-lje-viypdqd medicines. ? Any problems you or family [...] tells you to take them. ? Taking qvkx-ile-lgoebkj medicines, vitamins, herbs, and supplements. Surgery safety [...] health care (more content not included)... Normal [facility] Progress Note-Physicianon Progress Note-Physician Patient: SOLOMON FELDMAN [...] mg = 1 tab(s), PRN, SubLingual, q5min [place] 325 mg-5 mg oral tablet 1 tab(s), [...] 278.00 / Possible Fibromyalgia / SNOMED CT [id number]-8463-11H9-6 986144C23G9 / Confirmed Restless leg / ICD-9-CM 333.94 / Confirmed Arthritis / SNOMED CT 41UH8992-7B3J-34Z4-6Y9L-D MO4D260A902 / Confirmed Hyperlipidemia / SNOMED CT 49504990 / Confirmed Smoker / SNOMED CT E313SO5M-3874-52L1-7823-N GP9N8531KN7 / Confirmed Added secondary to documentation in Social History. Asthma / SNOMED CT 376293621 / Confirmed COPD type A / SNOMED CT 181903454 / Confirmed Head ache / SNOMED CT 24971228 / Confirmed Heart attack / SNOMED CT 36743411 / Confirmed Heart disease / SNOMED CT 59110966 / Confirmed Heart murmur / SNOMED CT 298528355 / Confirmed Urinary retention / SNOMED CT 943597048 / Confirmed BPH with obstruction/lower urinary tract symptoms / SNOMED CT 2743618051 / Confirmed Orchitis / SNOMED CT 845587754 / Confirmed Gross hematuria / SNOMED CT 835712909 / Confirmed Tobacco use / SNOMED CT AFYX5087-4537-8V98-S6G5-7 38453OV3PA8 / Confirmed Added secondary to social history documentation. Histories Past Medical History: Active Fibromyalgia (W1H108Z8-J06F-9333-81L9- 4839916X51M5) Restless leg (333.94) Arthritis (76CF4324-4A8R-82Q0-0U8V- ZTQ0B516S093) Hyperlipidemia (04495314) Resolved HTN [Hypertension] (401.9): Resolved. NIDDM (250.00): Resolved. GERD [Gastroesophageal reflux disease] (530.81): Resolved. CHF (congestive heart failure) (V5790939-2S8C-9Z5Z-1E02- J365602D3G27): Resolved. DC (myocardial infarction) (517M2JII-76J4-7D1E-4C42- 07192C42N0UB): Resolved. Family History: Diabetes mellitus Mother Heart disease Mother Alcoholism Brother Drug addiction Brother Acute myocardial infarction Mother Grandparent Procedure history: Bilateral Eye Surgery. Comments: 07/10/2014 17:25 Kati Causey RN bilateral cataracts with iol implants Bilateral Carpal Tunnel Surgery. cardiac stents. Appendectomy (700224552). Colonoscopy (168478328). Cataract extraction and insertion of intraocular lens (0786567985). Procedure on back (931404430). Social History Social & Psychosocial Habits Alcohol [...] procedure such (more content not included)... Normal [facility] Comment on above: Result Comment: Elec tronically Signed By: SOLEDAD HERRERA, Yeyo Blum\.br\Date and Time Signed: 02/14/23 09:58 EDT Consent for Treatmenton 09-0 Consent for Treatment [id number]#1.00CD:12 7 Normal [facility] Ambulatory Visit Summaryon 0 01-30-2023 Ambulatory Visit Summary GASTON CHRISTIAN, SOLOMON Daniel :1965 Visit Date:01/30/2023 Ambulatory Visit Instructions Your Diagnosis Urinary retention Gross hematuria BPH with obstruction/lower urinary tract symptoms Orchitis Your Care Team Attending Physician - Yeyo ROWE MD Primary Care Physician - JENARO LYNCH DO This Is Your Medications List Contact prescribing physician if questions or concerns acetaminophen-hydrocodone ([place] 325 mg-5 mg oral tablet) albuterol (ProAir [...] [facility] [address] [place] [phone] Medications What How Much When Instructions Unchanged acetaminophen-hydrocodone ([place] 325 mg-5 mg oral tablet) 1 Tablets [...] or vivian (more content not included)... Normal [facility] Patient Educationon 01-31-20 Patient Education Urology Urodynamic [...] including vitamins, herbs, eye drops, creams, and mpoe-toy-rjvfkkk medicines. ? Whether you are or may [...] results be (more content not included)... Normal [facility] Urology Office/Clinic Noteon 01-30-2023 Urology Office/Clinic Note [...] [facility] [address], [place] [phone] Additional Instructions: sched cysto/uros Patient Education Urodynamic [...] failure) GERD [Gastroesophageal reflux disease] HTN [Hypertension] DC (myocardial infarction) NIDDM Procedure/Surgical History Appendectomy, Bilateral [...] mg, BID (more content not included)... Normal [facility] Comment on above: Result Comment: Elec tronically Signed By: Saima Sutton\ras\Date and Time Signed: 01/30/23 11:38 EDT [facility] CARDIAC STRESS/REST INJE CTIONon 01-25-2023 [facility] CARDIAC STRESS/REST INJECTION Patient Name: SOLOMON FELDMAN STUDY: MYOCARDIAL PERFUSION STRESS TEST WITH EXERCISE CONVERTED TO LEXISCAN Performing facility: [facility], [address] [place] [address], [address], [address] Provider: Dolores Feldman RN, HIDE CLEANER PCP: Dr. Jenaro Lynch Supervising provider: Pascale Arnold MD, [facility] INDICATION: Anginal equivalent CAD; HISTORY: Gender: M; Age: 57 y/o ; Height: 182.88 cm; Weight: 97.4700401 kg. High Cholesterol; CAD; Diabetes; HTN; Palpitations; Chest Pain; Quit smoking unknown years ago. COMPARISON: Previous nuclear testing completed at [facility]. ACCESSION NUMBER(S): [id number]; [id number]; [id number] ORDERING CLINICIAN: DOLORES FELDMAN TECHNIQUE: ONE DAY [...] Electronically signed by: PASCALE ARNOLD MD Normal [facility] No Panel Informationon 01-25 Normal [facility] [address] 250 DO Work [...] contact the office if new symptoms arise. TMH TEACHER after procedure Chief Complaint Routine f/u: 'I [...] Cataract surg (more content not included)... Normal [facility] Tobacco Screening.on 023 Adult depression screening assessment No [facility] [employer] 600 DO Work Phone: Tobacco use status CPHS b) No [facility] [employer] 600 DO Work Phone: Ambulatory Visit Summaryon 0 12-28-2022 Ambulatory Visit Summary SOLOMON FELDMAN SR :1965 Visit Date:12/28/2022 Ambulatory Visit Instructions Your Care Team Attending Physician - Yeyo ROWE MD Primary Care Physician - JENARO LYNCH DO This Is Your Medications List acetaminophen-hydrocodone ([place] 325 mg-5 mg oral tablet) albuterol (ProAir [...] Yeyo ROWE MD Where: [facility] Formson 11-24-2022 Forms [id number]#1.00CD:127 [facility] Screenson 11-24-2022 Screens [id number]#1.00CD:1 27 Normal [facility] Patient Educationon 11-23- 23 Patient Education Urology [...] Reviewed: 05/07/2021 Elsevier Patient Education ? 2021 [employer] Marquise Chatman [facility] Urology Office/Clinic Noteon 11-23-2022 Urology Office/Clinic [...] bid x 3 weeks. Rx sent to [facility]. Follow-up With When Contact Information SOLEDAD HERRERA, Yeyo Blum, URL [facility] [address] [place] [address]- Additional Instructions: 1 month for cath change [...] failure) GERD [Gastroesophageal reflux disease] HTN [Hypertension] DC (myocardial infarction) NIDDM Procedure/Surgical History Appendectomy, Bilateral Carpal Tunnel Surgery, Bilateral Eye Surgery, cardiac stents, Ca (more content not included)... Normal [facility] Comment on above: Result Comment: Elec tronically Signed By: Yeyo ROWE MD R\.br\Date and Time Signed: 11/23/22 12:47 EDT\.br\Electronically Co-Signed By: Lorie Leblanc P\.br\Date and Time Co-Signed: 11/23/22 12:46 EDT A1C with Estimated Average Ines whitman 09-27-2022 Glucose [Mass/Vol] 246 mg/dL Normal [facility] Comment on above: Order Comment: Reaso n for Exam Type 2 diabetes mellitus with circulatory disorder Result Comment: PERF ORMED BY: [place] [address] PATHOLOGIST WORKING [employer] CLIFFORD LOBATO M.D. Performed By: #### A 1C [facility] eA #### [address] HbA1c (Bld) [Mass fraction] 10.2 % High 4.3-5.[address] [facility] Comment on above: Order Comment: Reaso n for Exam Type 2 diabetes mellitus with circulatory disorder Result Comment: Incr eased risk for diabetes: 5.7 - 6.4 diabetes: >6.4 glycemic control for adults with diabetes: <7.0 Performed By: #### A 1C WT eA #### [facility] [address] [place] [address] Alanine aminotransferase [En zymatic activity/volume] in Serum or PlasmaOrdered By: Jenaro Lynch on 09-27-2022 ALT [Catalytic activity/Vol] 15 U/L [facility] Albumin [Mass/volume] in Ser um or Plasma by Bromocresol green (BCG) dye binding methoOrdered By: Jenaro Lynch on 09-27-2022 Albumin BCG dye [Mass/Vol] 4.1 g/dL 3.5-5.7 [facility] Alkaline phosphatase [Enzyma tic activity/volume] in Serum or PlasmaOrdered By: Jenaro Lynch on 09-27-2022 ALP [Catalytic activity/Vol] 116 U/L 34-104 [facility] Aspartate aminotransferase [ Enzymatic activity/volume] in Serum or PlasmaOrdered By: Jenaro Lynch on 09-27-2022 AST [Catalytic activity/Vol] 15 U/L 13-39 [facility] Basophils Auto (Bld) [#/Vol] Ordered By: Jenaro Lynch on 09-27-2022 Basophils (Bld) [#/Vol] 0.1 10*3/uL 0.0-0.2 [facility] Basophils/100 WBC Auto (Bld) Ordered By: Jenaro Lynch on 09-27-2022 Basophils/100 WBC (Bld) 1.1 % . [facility] Bilirubin.total [Mass/volume ] in Serum or PlasmaOrdered By: Jenaro Lynch on 09-27-2022 Bilirubin [Mass/Vol] 0.4 mg/dL 0.3-1.0 [facility] Calcium [Mass/volume] in Ser um or PlasmaOrdered By: Jenaro Lynch on 09-27-2022 Calcium [Mass/Vol] 8.8 mg/dL 8.6-10.3 [facility] Carbon dioxide, total [Moles /volume] in Serum or PlasmaOrdered By: Jenaro Lynch on 09-27-2022 CO2 [Moles/Vol] 27.2 mmol/L 21.0-31.0 [facility] Chloride [Moles/volume] in S ilia or PlasmaOrdered By: Jenaro Lynch on 09-27-2022 Chloride [Moles/Vol] 99 mmol/L 98-107 [facility] Cholesterol [Mass/volume] in Serum or PlasmaOrdered By: Jenaro Lynch on 09-27-2022 Cholesterol [Mass/Vol] 104 mg/dL 140-200 [facility] Comment on above: Chol less than 200 m g/dl low riskChol 201-239 mg/dl borderline riskChol 240 mg/dl and greater high risk Cholesterol in LDL Calc [Mas s/Vol]Ordered By: Jenaro Lynch on 09-27-2022 Cholesterol in LDL [Mass/Vol] TNP [facility] Comment on above: Test not performed Cholesterol in LDL [Mass/vol ume] in Serum or PlasmaOrdered By: Jenaro Lynch on 09-27-2022 Cholesterol in LDL [Mass/Vol] 38 mg/dL 0-100 [facility] Comment on above: LDL ATP III CLASSIFI CATIONLDL less than 100 mg/dL OptimalLDL 100-129 mg/dL Near or above optimalLDL 130-159 mg/dL Borderline highLDL 160-189 mg/dL HighLDL greater than 189 mg/dL Very high Cholesterol in VLDL Calc [Ma ss/Vol]Ordered By: Jenaro Lynch on 09-27-2022 Cholesterol in VLDL [Mass/Vol] 99 mg/dL [facility] Complete Blood Count Auto Di ffon 09-27-2022 Basophils (Bld) [#/Vol] 0.1 10*3/uL Normal 0.0-0.[address] [facility] Comment on above: Order Comment: Reaso n for Exam Hyperlipidemia;Type 2 diabetes mellitus with circulatory dis Result Comment: PERF ORMED BY: [facility] [address] [place] [address] PATHOLOGIST WORKING [employer] CLIFFORD LOBATO M.D. Performed By: #### C BC ####[place] [id number] [place] Basophils/100 WBC (Bld) 1.1 % Normal . [facility] Comment on above: Order Comment: Reaso n for Exam Hyperlipidemia;Type 2 diabetes mellitus with circulatory dis Performed By: #### C BC ####[address] [address] [place] Eosinophils (Bld) [#/Vol] 0.7 10*3/uL High 0.0-0.[address] [facility] Comment on above: Order Comment: Reaso n for Exam Hyperlipidemia;Type 2 diabetes mellitus with circulatory dis Performed By: #### C BC ####[address] [address] [place] Eosinophils/100 WBC (Bld) 5.9 % Normal . [facility] Comment on above: Order Comment: Reaso n for Exam Hyperlipidemia;Type 2 diabetes mellitus with circulatory dis Performed By: #### C BC ####[place] [id number] [facility] Erythrocyte distribution width (RBC) [Ratio] 16.0 % High 12.0-14.[address] [facility] Comment on above: Order Comment: Reaso n for Exam Hyperlipidemia;Type 2 diabetes mellitus with circulatory dis Performed By: #### C BC ####[place] [id number] [facility] Hematocrit (Bld) [Volume fraction] 41.0 % Normal 38.8-50.[address] [facility] Comment on above: Order Comment: Reaso n for Exam Hyperlipidemia;Type 2 diabetes mellitus with circulatory dis Performed By: #### C BC ####[place] [id number] [facility] Hemoglobin (Bld) [Mass/Vol] 13.2 g/dL Normal 13.0-17.[address] [facility] Comment on above: Order Comment: Reaso n for Exam Hyperlipidemia;Type 2 diabetes mellitus with circulatory dis Performed By: #### C BC ####[place] [id number] [facility] Lymphocytes (Bld) [#/Vol] 2.3 10*3/uL Normal 1.00-4.[address] [facility] Comment on above: Order Comment: Reaso n for Exam Hyperlipidemia;Type 2 diabetes mellitus with circulatory dis Performed By: #### C BC ####[place] [id number] [facility] Lymphocytes/100 WBC (Bld) 18.2 % Normal . [facility] Comment on above: Order Comment: Reaso n for Exam Hyperlipidemia;Type 2 diabetes mellitus with circulatory dis Performed By: #### C BC ####[place] [id number] [facility] MCH (RBC) [Entitic mass] 23.9 pg Low 27.5-35.[address] [facility] Comment on above: Order Comment: Reaso n for Exam Hyperlipidemia;Type 2 diabetes mellitus with circulatory dis Performed By: #### C BC ####[address] MCV (RBC) [Entitic vol] 74.3 fL Low 83.5-[address] [facility] Comment on above: Order Comment: Reaso n for Exam Hyperlipidemia;Type 2 diabetes mellitus with circulatory dis Performed By: #### C BC ####[address] Mean Corpuscular HGB Conc 32.2 g/dL Low 32.5-35.[address] [facility] Comment on above: Order Comment: Reaso n for Exam Hyperlipidemia;Type 2 diabetes mellitus with circulatory dis Performed By: #### C BC ####[address] Monocytes (Bld) [#/Vol] 1.0 10*3/uL High 0.0-0.[address] [facility] Comment on above: Order Comment: Reaso n for Exam Hyperlipidemia;Type 2 diabetes mellitus with circulatory dis Performed By: #### C BC ####[address] Monocytes/100 WBC (Bld) 7.9 % Normal . [facility] Comment on above: Order Comment: Reaso n for Exam Hyperlipidemia;Type 2 diabetes mellitus with circulatory dis Performed By: #### C BC ####[address] Neutrophils (Bld) [#/Vol] 8.3 10*3/uL High 1.8-7.[address] [facility] Comment on above: Order Comment: Reaso n for Exam Hyperlipidemia;Type 2 diabetes mellitus with circulatory dis Performed By: #### C BC ####[address] Neutrophils/100 WBC (Bld) 66.9 % Normal . [facility] Comment on above: Order Comment: Reaso n for Exam Hyperlipidemia;Type 2 diabetes mellitus with circulatory dis Performed By: #### C BC ####[address] NRBC% 0.1 /100{WBC} Normal 0-0.5 [facility] Comment on above: Order Comment: Reaso n for Exam Hyperlipidemia;Type 2 diabetes mellitus with circulatory dis Performed By: #### C BC ####[place] [address] [place] [id number] [facility] Platelet mean volume (Bld) [Entitic vol] 9.1 fL Normal 6.6-10.1 [facility] Comment on above: Order Comment: Reaso n for Exam Hyperlipidemia;Type 2 diabetes mellitus with circulatory dis Performed By: #### C BC ####[place] [address] [place] [phone] [facility] Platelets (Bld) [#/Vol] 209 10*3/uL Normal 150-[address] [facility] Comment on above: Order Comment: Reaso n for Exam Hyperlipidemia;Type 2 diabetes mellitus with circulatory dis Performed By: #### C BC ####[place] [phone] [facility] RBC (Bld) [#/Vol] 5.52 10*6/uL Normal 3.90-5.60 [facility] Comment on above: Order Comment: Reaso n for Exam Hyperlipidemia;Type 2 diabetes mellitus with circulatory dis Performed By: #### C BC ####[place] [phone] [facility] WBC (Bld) [#/Vol] 12.4 10*3/uL High 4.1-10.5 [facility] Comment on above: Order Comment: Reaso n for Exam Hyperlipidemia;Type 2 diabetes mellitus with circulatory dis Performed By: #### C BC ####[place] [address] [place] [phone] [facility] Comprehensive Metabolic Pane bárbara 09-27-2022 Albumin [Mass/Vol] 4.1 g/dL Normal 3.5-5.7 [facility] Comment on above: Order Comment: Reaso n for Exam Hyperlipidemia;Type 2 diabetes mellitus with circulatory dis fasting Reason for Exam Gout Performed By: #### T SH3, LDLD, CMP, URIC, LIPID #### [facility] [address] [place] [phone] [facility] Albumin/Globulin [Mass ratio] 1.4 {ratio} Normal [facility] Comment on above: Order Comment: Reaso n for Exam Hyperlipidemia;Type 2 diabetes mellitus with circulatory dis fasting Reason for Exam Gout Performed By: #### T SH3, LDLD, CMP, URIC, LIPID #### [facility] [address] ALP [Catalytic activity/Vol] 116 U/L High 34-[address] [facility] Comment on above: Order Comment: Reaso n for Exam Hyperlipidemia;Type 2 diabetes mellitus with circulatory dis fasting Reason for Exam Gout Performed By: #### T SH3, LDLD, CMP, URIC, LIPID #### [facility] [address] [place] [address] ALT [Catalytic activity/Vol] 15 U/L Normal 7-[address] [facility] Comment on above: Order Comment: Reaso n for Exam Hyperlipidemia;Type 2 diabetes mellitus with circulatory dis fasting Reason for Exam Gout Performed By: #### T SH3, LDLD, CMP, URIC, LIPID #### [facility] [address] [place] [address] [place] Anion gap [Moles/Vol] 14.1 mmol/L Normal 6.0-15.0 [facility] Comment on above: Order Comment: Reaso n for Exam Hyperlipidemia;Type 2 diabetes mellitus with circulatory dis fasting Reason for Exam Gout Performed By: #### T SH3, LDLD, CMP, URIC, LIPID #### [facility] [address] [place] [address] AST [Catalytic activity/Vol] 15 U/L Normal 13-[address] [facility] Comment on above: Order Comment: Reaso n for Exam Hyperlipidemia;Type 2 diabetes mellitus with circulatory dis fasting Reason for Exam Gout Performed By: #### T SH3, LDLD, CMP, URIC, LIPID #### [facility] [address] [place], [place] [id number] [place] Bilirubin [Mass/Vol] 0.4 mg/dL Normal 0.3-1.[address] 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 Comment on above: Order Comment: Reaso n for Exam Hyperlipidemia;Type 2 diabetes mellitus with circulatory dis fasting Reason for Exam Gout Performed By: #### T SH3, LDLD, CMP, URIC, LIPID #### [facility] [address] [place] [phone] [facility] CO2 [Moles/Vol] 27.2 mmol/L Normal 21.0-31.0 [facility] Comment on above: Order Comment: Reaso n for Exam Hyperlipidemia;Type 2 diabetes mellitus with circulatory dis fasting Reason for Exam Gout Performed By: #### T SH3, LDLD, CMP, URIC, LIPID #### [facility] [address] Creatinine [Mass/Vol] 1.84 mg/dL High 0.70-1.[address] [facility] Comment on above: Order Comment: Reaso n for Exam Hyperlipidemia;Type 2 diabetes mellitus with circulatory dis fasting Reason for Exam Gout Performed By: #### T SH3, LDLD, CMP, URIC, LIPID #### [facility] [address] [place] [phone] [place] GFR/1.73 sq M.predicted MDRD (S/P/Bld) [Vol rate/Area] 42.232 mL/min/{1.73_m2} Normal [facility] Comment on above: Order Comment: Reaso n for Exam Hyperlipidemia;Type 2 diabetes mellitus with circulatory dis fasting Reason for Exam Gout Performed By: #### T SH3, LDLD, CMP, URIC, LIPID #### [facility] [address] [place] [phone] [place] Globulin (S) [Mass/Vol] 2.9 g/dL Normal [facility] Comment on above: Order Comment: Reaso n for Exam Hyperlipidemia;Type 2 diabetes mellitus with circulatory dis fasting Reason for Exam Gout Performed By: #### T SH3, LDLD, CMP, URIC, LIPID #### [facility] [address] [place] [phone] [facility] Glucose [Mass/Vol] 225 mg/dL High 70-100 [facility] Comment on above: Order Comment: Reaso n for Exam Hyperlipidemia;Type 2 diabetes mellitus with circulatory dis fasting Reason for Exam Gout Result Comment: [place] Glucose Reference Range is dependent on time and content of last meal. Glucose of more than 200 mg/dL in a nonstressed, ambulatory subject supports the diagnosis of Diabetes Mellitus. ADA recommended reference range Performed By: #### T SH3, LDLD, CMP, URIC, LIPID #### [facility] [address] Potassium [Moles/Vol] 4.3 mmol/L Normal 3.5-5.[address] [facility] Comment on above: Order Comment: Reaso n for Exam Hyperlipidemia;Type 2 diabetes mellitus with circulatory dis fasting Reason for Exam Gout Performed By: #### T SH3, LDLD, CMP, URIC, LIPID #### [facility] [address] Protein [Mass/Vol] 7.0 g/dL Normal 6.4-8.9 [facility] Comment on above: Order Comment: Reaso n for Exam Hyperlipidemia;Type 2 diabetes mellitus with circulatory dis fasting Reason for Exam Gout Performed By: #### T SH3, LDLD, CMP, URIC, LIPID #### [facility] [address] [place] [phone] [place] Sodium [Moles/Vol] 136 mmol/L Normal 136-145 [facility] Comment on above: Order Comment: Reaso n for Exam Hyperlipidemia;Type 2 diabetes mellitus with circulatory dis fasting Reason for Exam Gout Performed By: #### T SH3, LDLD, CMP, URIC, LIPID #### [facility] [address] [place] [phone] [place] Urea nitrogen [Mass/Vol] 15 mg/dL Normal 7-[address] [facility] Comment on above: Order Comment: Reaso n for Exam Hyperlipidemia;Type 2 diabetes mellitus with circulatory dis fasting Reason for Exam Gout Performed By: #### T SH3, LDLD, CMP, URIC, LIPID #### [facility] [address] Creatinine [Mass/volume] in Serum or PlasmaOrdered By: Jenaro Lynch on 09-27-2022 Creatinine [Mass/Vol] 1.84 mg/dL 0.70-1.30 [facility] Eosinophils Auto (Bld) [#/Vo l]Ordered By: Jenaro Lynch on 09-27-2022 Eosinophils (Bld) [#/Vol] 0.7 10*3/uL 0.0-0.45 [facility] Eosinophils/100 WBC Auto (Bl d)Ordered By: Jenrao Lynch on 09-27-2022 Eosinophils/100 WBC (Bld) 5.9 % . [facility] Erythrocyte distribution wid th Auto (RBC) [Ratio]Ordered By: Jenaro Lynch on 09-27-2022 Erythrocyte distribution width (RBC) [Ratio] 16.0 % 12.0-14.8 [facility] Globulin Calc (S) [Mass/Vol] Ordered By: Jenaro Lynch on 09-27-2022 Globulin (S) [Mass/Vol] 2.9 g/dL [facility] Glucose [Mass/volume] in Ser um or PlasmaOrdered By: Jenaro Lynch on 09-27-2022 Glucose [Mass/Vol] 225 mg/dL 70-100 [facility] Comment on above: ADA recommended refe rence rangeRandom Glucose Reference Range is dependent on time and content of last meal. Glucose of more than 200 mg/dL in a nonstressed, ambulatory subject supports the diagnosis of Diabetes Mellitus. Hematocrit Auto (Bld) [Volum e fraction]Ordered By: Jenaro Lynch on 09-27-2022 Hematocrit (Bld) [Volume fraction] 41.0 % 38.8-50.0 [facility] Hemoglobin [Mass/volume] in BloodOrdered By: Jenaro Lynch on 09-27-2022 Hemoglobin (Bld) [Mass/Vol] 13.2 g/dL 13.0-17.0 [facility] LDL Cholesterol Measuredon 0 09-27-2022 LDL Cholesterol Measured 38 mg/dL Normal 0-[address] [facility] Comment on above: Order [...] T SH3, LDLD, CMP, URIC, LIPID #### [facility] [address] [place] [phone] [facility] Leukocytes [#/volume] correc jorge for nucleated erythrocytes in Blood by Automated counOrdered By: Jenaro Lynch on 09-27-2022 WBC corrected for nucl RBC Auto (Bld) [#/Vol] 12.4 10*3/uL 4.1-10.5 [facility] Lipid Panelon 09-27-2022 Cholesterol [Mass/Vol] 104 mg/dL Low 140-[address] [facility] Comment on above: Order Comment: Reaso n for Exam Hyperlipidemia;Type 2 diabetes mellitus with circulatory dis fasting Reason for Exam Gout Result Comment: Chol less than 200 mg/dl low risk Chol 201-239 mg/dl borderline risk Chol 240 mg/dl and greater high risk Performed By: #### T SH3, LDLD, CMP, URIC, LIPID #### [facility] [address] [place] [phone] [facility] Cholesterol in HDL [Mass/Vol] 21 mg/dL Low 29-[address] [facility] Comment on above: Order Comment: Reaso n for Exam Hyperlipidemia;Type 2 diabetes mellitus with circulatory dis fasting Reason for Exam Gout Result Comment: HDL CHOL ATP-III CLASSIFICATION Cardiovascular Risk HDL > or equal to 60 mg/dL LOW HDL < 40 mg/dL HIGH Performed By: #### T SH3, LDLD, CMP, URIC, LIPID #### [facility] [address] [place] [phone] [place] Cholesterol.total/Chol esterol in HDL [Mass ratio] 5.0 {ratio} Normal <5.[address] [facility] Comment on above: Order Comment: Reaso n for Exam Hyperlipidemia;Type 2 diabetes mellitus with circulatory dis fasting Reason for Exam Gout Performed By: #### T SH3, LDLD, CMP, URIC, LIPID #### [facility] [address] [place] [phone] [place] LDL Cholesterol,Calculated Not performed Normal 0-100 [facility] Comment on above: Order Comment: Reaso n for Exam Hyperlipidemia;Type 2 diabetes mellitus with circulatory dis fasting Reason for Exam Gout Performed By: #### T SH3, LDLD, CMP, URIC, LIPID #### [facility] [address] [place] [phone] [facility] Triglyceride w/Reflex 497 mg/dL High 0-[address] [facility] Comment on above: Order [...] T SH3, LDLD, CMP, URIC, LIPID #### [facility] [address] [place] [phone] [facility] VLDL CHOLESTEROL 99 mg/dL Normal [facility] Comment on above: Order Comment: Reaso n for Exam Hyperlipidemia;Type 2 diabetes mellitus with circulatory dis fasting Reason for Exam Gout Performed By: #### T SH3, LDLD, CMP, URIC, LIPID #### [facility] [address] [place] [phone] [facility] Lymphocytes Auto (Bld) [#/Vo l]Ordered By: Jenaro Lynch on 09-27-2022 Lymphocytes (Bld) [#/Vol] 2.3 10*3/uL 1.00-4.8 [facility] Lymphocytes/100 WBC Auto (Bl d)Ordered By: Jenaro Lynch on 09-27-2022 Lymphocytes/100 WBC (Bld) 18.2 % . [facility] MCH Auto (RBC) [Entitic mass ]Ordered By: Jenaro Lynch on 09-27-2022 MCH (RBC) [Entitic mass] 23.9 pg 27.5-35.2 [facility] MCHC Auto (RBC) [Mass/Vol]Or dered By: Jenaro Lynch on 09-27-2022 MCHC (RBC) [Mass/Vol] 32.2 g/dL 32.5-35.6 [facility] MCV Auto (RBC) [Entitic vol] Ordered By: Jenaro Lynch on 09-27-2022 MCV (RBC) [Entitic vol] 74.3 fL 83.5-101 [facility] Monocytes Auto (Bld) [#/Vol] Ordered By: Jenaro Lynch on 09-27-2022 Monocytes (Bld) [#/Vol] 1.0 10*3/uL 0.0-0.8 [facility] Monocytes/100 WBC Auto (Bld) Ordered By: Jenaro Lynch on 09-27-2022 Monocytes/100 WBC (Bld) 7.9 % . [facility] Neutrophils Auto (Bld) [#/Vo l]Ordered By: Jenaro Lynch on 09-27-2022 Neutrophils (Bld) [#/Vol] 8.3 10*3/uL 1.8-7.7 [facility] Neutrophils/100 WBC Auto (Bl d)Ordered By: Jenaro Lynch on 09-27-2022 Neutrophils/100 WBC (Bld) 66.9 % . [facility] No Panel InformationOrdered By: Jenaro Lynch on 09-27-2022 Estimated GFR (CKD-EPI) 42.232 mL/Min [facility] Creatinine Clearance (Chem N/A [facility] Nucleated erythrocytes [Pres ence] in Blood by Automated countOrdered By: Jenaro Lynch on 09-27-2022 Nucleated RBC Auto Ql (Bld) 0.1 /100{WBC} 0-0.5 [facility] Platelet mean volume Auto (B ld) [Entitic vol]Ordered By: Jenaro Lynch on 09-27-2022 Platelet mean volume (Bld) [Entitic vol] 9.1 fL 6.6-10.1 [facility] Platelets Auto (Bld) [#/Vol] Ordered By: Jenaro Lynch on 09-27-2022 Platelets (Bld) [#/Vol] 209 10*3/uL 150-450 [facility] Potassium [Moles/volume] in Serum or PlasmaOrdered By: Jenaro Lynch on 09-27-2022 Potassium [Moles/Vol] 4.3 mmol/L 3.5-5.1 [facility] Protein [Mass/volume] in Ser um or PlasmaOrdered By: Jenaro Lynch on 09-27-2022 Protein [Mass/Vol] 7.0 g/dL 6.4-8.9 [facility] RBC Auto (Bld) [#/Vol]Ordere d By: Jenaro Lynch on 09-27-2022 RBC (Bld) [#/Vol] 5.52 10*6/uL 3.90-5.60 [facility] Serum or plasma albumin/glob ulin mass ratioOrdered By: Jenaro Lynch on 09-27-2022 Albumin/Globulin [Mass ratio] 1.4 {ratio} [facility] Serum or plasma anion gap de terminationOrdered By: Jenaro Lynch on 09-27-2022 Anion gap [Moles/Vol] 14.1 mmol/L 6.0-15.0 [facility] Serum or plasma high density lipoprotein (HDL) cholesterol measurementOrdered By: Jenaro Lynch on 09-27-2022 Cholesterol in HDL [Mass/Vol] 21 mg/dL 29-71 [facility] Comment on above: HDL CHOL ATP-III CLA SSIFICATION Cardiovascular RiskHDL > or equal to 60 mg/dL LOWHDL < 40 mg/dL HIGH Serum or plasma total choles terol/high density lipoprotein (HDL) cholesterol mass ratOrdered By: Jenaro Lynch on 09-27-2022 Cholesterol.total/Chol esterol in HDL [Mass ratio] 5.0 {ratio} <5.0 [facility] Sodium [Moles/volume] in Ser um or PlasmaOrdered By: Jenaro Lynch on 09-27-2022 Sodium [Moles/Vol] 136 mmol/L 136-145 [facility] Thyroid Stimulating Hormoneo n 09-27-2022 TSH Qn 3.62 m[IU]/L Normal 0.45-5.33 [facility] Comment on above: Order Comment: Reaso n for Exam Hyperlipidemia;Type 2 diabetes mellitus with circulatory dis fasting Reason for Exam Gout Result Comment: PERF ORMED BY: [facility] [address] [place] [address] PATHOLOGIST WORKING [employer] CLIFFORD LOBATO M.D. Performed By: #### T SH3, LDLD, CMP, URIC, LIPID #### [facility] [address] Order Comment: Reaso n for Exam Hyperlipidemia;Type 2 diabetes mellitus with circulatory dis fasting Reason for Exam Gout Performed By: #### T SH3, LDLD, CMP, URIC, LIPID ####[facility] [id number] Thyrotropin [Units/volume] i n Serum or PlasmaOrdered By: Jenaro Lynch on 09-27-2022 TSH Qn 3.62 m[IU]/L 0.45-5.33 [facility] Triglyceride [Mass/volume] i n Serum or PlasmaOrdered By: Jenaro Lynch on 09-27-2022 Triglyceride [Mass/Vol] 497 mg/dL 0-149 [facility] Comment on above: If the [...] on 09-27-2022 Urate [Mass/Vol] 6.2 mg/dL 2.4-7.6 [facility] Urea nitrogen [Mass/volume] in Serum or PlasmaOrdered By: Jenaro Lynch on 09-27-2022 Urea nitrogen [Mass/Vol] 15 mg/dL 25 [facility] Uric Acidon 09-27-2022 Urate [Mass/Vol] 6.2 mg/dL Normal 2.4-7.6 [facility] Comment on above: Order Comment: Reaso n for Exam Hyperlipidemia;Type 2 diabetes mellitus with circulatory dis fasting Reason for Exam Gout Performed By: #### T SH3, LDLD, CMP, URIC, LIPID #### [facility] [address] [place] [address] [facility] WBC Auto (Bld) [#/Vol]Ordere d By: Jenaro Lynch on 09-27-2022 WBC (Bld) [#/Vol] 12.4 10*3/uL 4.1-10.5 [facility] A1C HEMOGLOBINon 02-15-2022 HbA1c (Bld) [Mass fraction] % [employer] Other HbA1c (Bld) [Mass fraction]o n 02-15-2022 A1C HEMOGLOBIN [employer] Other Tobacco Screening.on 022 Adult depression screening assessment No [facility] [employer] 250 DO Work Phone: Tobacco use status CPHS b) No [facility] [employer] 250 DO Work Phone: A1C HEMOGLOBINon 07-27-2021 HbA1c (Bld) [Mass fraction] 11.8 % [employer] Other HbA1c (Bld) [Mass fraction]o n 07-27-2021 A1C HEMOGLOBIN [employer] Other Vital Signs Date Time Vital Sign Value Performing Clinician Facility 07-31-2023 12:00-0500 Diastolic blood pressure 63 mm[Hg] DO Jenaro Lynch Work Phone: [facility] 07-31-2023 12:00-0500 Heart rate 75 /min DO Jenaro Lynch Work Phone: [facility] 07-31-2023 12:00-0500 Systolic blood pressure 108 mm[Hg] DO Jenaro Lynch Work Phone: [facility] 07-31-2023 08:33-0500 Respiratory rate 18 /min DO Jenaro Lynch Work Phone: [facility] 07-12-2023 18:03-0500 Diastolic blood pressure 73 mm[Hg] DO Jenaro Lynch Work Phone: [facility] 07-12-2023 18:03-0500 Heart rate 76 /min DO Jenaro Jetts Work Phone: [facility] 07-12-2023 18:03-0500 Respiratory rate 20 /min DO Jenarogorge Fraustos Work Phone: [facility] 07-12-2023 18:03-0500 SaO2% (BldA) [Mass fraction] 98 % DO Jenarogorge Fraustos Work Phone: [facility] 07-12-2023 18:03-0500 Systolic blood pressure 125 mm[Hg] DO Jenaro Jetts Work Phone: [facility] 07-12-2023 16:15-0500 Body height 182.88 cm DO Jenaro Fraustos Work Phone: [facility] 07-12-2023 16:15-0500 Body temperature 98.9 [degF] DO Jenaro Fraustos Work Phone: [facility] 07-12-2023 16:15-0500 Body weight 99.25 kg DO Jenaro Lynch Work Phone: [facility] 06-02-2023 10:56-0500 Blood Pressure Location Yeyo ROWE [facility] 06-02-2023 10:56-0500 Body temperature 96.98 [degF] Yeyo ROWE [facility] 06-02-2023 10:56-0500 Diastolic blood pressure 84 mm[Hg] Yeyo ROWE [facility] 06-02-2023 10:56-0500 Heart rate 68 /min Yeyo ROWE [facility] 06-02-2023 10:56-0500 Systolic blood pressure 124 mm[Hg] Yeyo ROWE [facility] 04-06-2023 13:15-0400 Body height 180.34 cm Jenaro Lynch Other [employer] Other 04-06-2023 13:15-0400 Body mass index (BMI) [Ratio] 29.43 kg/m2 Jenaro Lynch Other [employer] Other 04-06-2023 13:15-0400 Body weight 95.71 kg Jenaro Lynch Other [employer] Other 04-06-2023 13:15-0400 Diastolic blood pressure 70 mm[Hg] Jenaro Lynch Other [employer] Other 04-06-2023 13:15-0400 Respiratory rate 18 /min Jenaro Lynch Other [employer] Other 04-06-2023 13:15-0400 SaO2% (BldA) [Mass fraction] 97 % Jenaro Lynch Other [employer] Other 04-06-2023 13:15-0400 Systolic blood pressure 100 mm[Hg] Jenaro Lynch Other [employer] Other 03-15-2023 08:30-0400 Body height 180.34 cm Jenaro Lynch Other [employer] Other 03-15-2023 08:30-0400 Body mass index (BMI) [Ratio] 29.01 kg/m2 Jenaro Lynch Other [employer] Other 03-15-2023 08:30-0400 Body weight 94.35 kg Jenaro Syed Other [employer] Other 03-15-2023 08:30-0400 Diastolic blood pressure 62 mm[Hg] Jenaro Jettjoe Other [employer] Other 03-15-2023 08:30-0400 Respiratory rate 16 /min Jenaro Jettjoe Other [employer] Other 03-15-2023 08:30-0400 SaO2% (BldA) [Mass fraction] 97 % Jenaro Jettjoe Other [employer] Other 03-15-2023 08:30-0400 Systolic blood pressure 88 mm[Hg] Jenaro Lynch Other [employer] Other 02-15-2023 10:04-0400 Body height 182.88 cm Jenaro Guerra Syed Work Phone: [facility] [employer] 250 DO Work Phone: 02-15-2023 10:04-0400 Body mass index (BMI) [Ratio] 28.62 kg/m2 Jenaro Guerra Syed Work Phone: [facility] 250 DO Work Phone: 02-15-2023 10:04-0400 Body surface area Derived from formula 2.18 m2 Jenaro Guerra Syed Work Phone: [facility] 250 DO Work Phone: 02-15-2023 10:04-0400 Body weight 95.71 kg Jenaro Fraustos Work Phone: [facility] 250 DO Work Phone: 02-15-2023 10:04-0400 Diastolic blood pressure 70 mm[Hg] Jenaro P Kuns Work Phone: [facility] 250 DO Work Phone: 02-15-2023 10:04-0400 Heart rate 76 /min Jenaro Lynch Work Phone: [facility] 250 DO Work Phone: 02-15-2023 10:04-0400 Systolic blood pressure 102 mm[Hg] Jenaro Lynch Work Phone: [facility] 250 DO Work Phone: 01-30-2023 10:23-0400 Blood Pressure Location Yeyoneel ROWE [facility] 01-30-2023 10:23-0400 Diastolic blood pressure 74 mm[Hg] Yeyo ROWE [facility] 01-30-2023 10:23-0400 Heart rate 68 /min Yeyoneel ROWE [facility] 01-30-2023 10:23-0400 Respiratory rate 16 /min Yeyo ROWE [facility] 01-30-2023 10:23-0400 Systolic blood pressure 130 mm[Hg] Yeyo ROWE [facility] 01-11-2023 15:08-0400 Body height 180.34 cm Jenaro Lynch Work Phone: [facility] 600 DO Work Phone: 01-11-2023 15:08-0400 Body mass index (BMI) [Ratio] 30.13 kg/m2 Jenaro Lynch Work Phone: [facility] 600 DO Work Phone: 01-11-2023 15:08-0400 Body surface area Derived from formula 2.18 m2 Jenaro Lynch Work Phone: [facility] [employer] 600 DO Work Phone: 01-11-2023 15:08-0400 Body weight 97.98 kg Jenaro Lynch Work Phone: [facility] [employer] 600 DO Work Phone: 01-11-2023 15:08-0400 Diastolic blood pressure 86 mm[Hg] Jenaro Guerra Syed Work Phone: [facility] [employer] 600 DO Work Phone: 01-11-2023 15:08-0400 Heart rate 74 /min Jenaro Lynch Work Phone: [facility] [employer] 600 DO Work Phone: 01-11-2023 15:08-0400 Systolic blood pressure 122 mm[Hg] Jenaro Mari Lynch Work Phone: [facility] [employer] 600 DO Work Phone: 12-01-2022 12:45-0400 Body height 180.34 cm Jenaro Lynch Other [employer] [facility] [employer] Other 12-01-2022 12:45-0400 Body mass index (BMI) [Ratio] 29.73 kg/m2 Jenaro Lynch Other [employer] [facility] [employer] Other 12-01-2022 12:45-0400 Body weight 96.71 kg Jenaro Lynch Other [employer] Other 12-01-2022 12:45-0400 Diastolic blood pressure 70 mm[Hg] Jenaro Lynch Other [employer] Other 12-01-2022 12:45-0400 Respiratory rate 18 /min Jenaro Lynch Other [employer] Other 12-01-2022 12:45-0400 SaO2% (BldA) [Mass fraction] 94 % Jenaor Lynhc Other [employer] Other 12-01-2022 12:45-0400 Systolic blood pressure 122 mm[Hg] Jenaro Lynch Other [employer] Other 11-23-2022 11:38-0400 Blood Pressure Location Yeyo Keelvar [facility] 11-23-2022 11:38-0400 Diastolic blood pressure 85 mm[Hg] Yeyo Keelvar [facility] 11-23-2022 11:38-0400 Heart rate 76 /min Yeyo Keelvar [facility] 11-23-2022 11:38-0400 Systolic blood pressure 130 mm[Hg] Yeyo ROWE [facility] 07-04-2022 10:30-0500 Body height 180.34 cm Jenaro Lynch Other [employer] Other 07-04-2022 10:30-0500 Body mass index (BMI) [Ratio] 29.43 kg/m2 Jenaro Lynch Other [employer] Other 07-04-2022 10:30-0500 Body weight 95.71 kg Jenaro Lynch Other [employer] Other 07-04-2022 10:30-0500 Diastolic blood pressure 86 mm[Hg] Jenaro Lynch Other [employer] Other 07-04-2022 10:30-0500 Respiratory rate 16 /min Jenaro Lynch Other [employer] Other 07-04-2022 10:30-0500 Systolic blood pressure 146 mm[Hg] Jenaro Lynch Other [employer] Other 02-15-2022 13:45-0400 Body height 180.34 cm Jenaro Lynch Other [employer] Other 02-15-2022 13:45-0400 Body mass index (BMI) [Ratio] 30.12 kg/m2 Jenaro Lynch Other [employer] Other 02-15-2022 13:45-0400 Body weight 97.98 kg Jenaro Lynch Other [employer] Other 02-15-2022 13:45-0400 Diastolic blood pressure 62 mm[Hg] Jenaro Lynch Other [employer] Other 02-15-2022 13:45-0400 Respiratory rate 16 /min Jenaro Lynch Other [employer] Other 02-15-2022 13:45-0400 SaO2% (BldA) [Mass fraction] 96 % Jenaro Lynch Other [employer] Other 02-15-2022 13:45-0400 Systolic blood pressure 100 mm[Hg] Jenaro Lynch Other [employer] Other 10-26-2021 10:01-0400 Body height 180.34 cm Jenaro Lynch Work Phone: [facility] 250 DO Work Phone: 10-26-2021 10:01-0400 Body mass index (BMI) [Ratio] 29.99 kg/m2 Jenaro Lynch Work Phone: [facility] 250 DO Work Phone: 10-26-2021 10:01-0400 Body surface area Derived from formula 2.17 m2 Jenaro Lynch Work Phone: [facility] 250 DO Work Phone: 10-26-2021 10:01-0400 Body weight 97.52 kg Jenaro Lynch Work Phone: [facility] 250 DO Work Phone: 10-26-2021 10:01-0400 Diastolic blood pressure 70 mm[Hg] Jenarogorge Lynch Work Phone: [facility] 250 DO Work Phone: 10-26-2021 10:01-0400 Heart rate 68 /min Jenaro Lynch Work Phone: [facility] 250 DO Work Phone: 10-26-2021 10:01-0400 Systolic blood pressure 104 mm[Hg] Jenaro Mari Lynch Work Phone: [facility] 250 DO Work Phone: 10-19-2021 12:20-0400 Body height 180.34 cm Amina [employer] Other [employer] Other 10-19-2021 12:20-0400 Body mass index (BMI) [Ratio] 30.65 kg/m2 [employer] Other [employer] Other 10-19-2021 12:20-0400 Body temperature 96.8 [degF] Amina Fagan Other [employer] Other 10-19-2021 12:20-0400 Body weight 99.7 kg Amina Fagan Other [employer] Other 10-19-2021 12:20-0400 Diastolic blood pressure 71 mm[Hg] Amina Fagan Other [employer] Other 10-19-2021 12:20-0400 Respiratory rate 18 /min Amina Fagan Other [employer] Other 10-19-2021 12:20-0400 SaO2% (BldA) [Mass fraction] 98 % Amina Fagan Other [employer] Other 10-19-2021 12:20-0400 Systolic blood pressure 111 mm[Hg] Amina Fagan Other [employer] Other 07-27-2021 14:00-0500 Body height 180.34 cm Jenaro Syed Other [employer] Other 07-27-2021 14:00-0500 Body mass index (BMI) [Ratio] 30.4 kg/m2 Jenaro Lynch Other [employer] Other 07-27-2021 14:00-0500 Body weight 98.88 kg Jenaro Lynch Other [employer] Other 07-27-2021 14:00-0500 Diastolic blood pressure 76 mm[Hg] Jenaro Lynch Other [employer] Other 07-27-2021 14:00-0500 Respiratory rate 18 /min Jenaro Lynch Other [employer] Other 07-27-2021 14:00-0500 SaO2% (BldA) [Mass fraction] 98 % Jenaro Syed Other [employer] Other 07-27-2021 14:00-0500 Systolic blood pressure 112 mm[Hg] Jenaro Syed Other [employer] Other Encounters Encounter Date Encounter Type Care Provider Facility Start: 09-21-2023 End: 09-21-2023 ambulatory Fredy Hooker [facility] Facility:[facility] Start: 09-21-2023 End: 09-21-2023 ambulatory DO Jenaro Lynch Work Phone: [facility] Work Phone: Start: 09-21-2023 End: 09-21-2023 Departed Referred DO Jenaro Lynch Work Phone: [facility] Start: 09-18-2023 Non-patient / Non-visit DO Phillip Lynch [facility] Work Phone: Start: 09-08-2023 End: 09-09-2023 ambulatory Yeyo ROWE Facility:[facility] Start: 09-08-2023 End: 09-08-2023 Patient encounter procedure Yeyo ROWE [facility] Start: 08-10-2023 Non-patient / Non-visit DO Phillip Lynch [facility] Work Phone: Start: 08-08-2023 Non-patient / Non-visit DO Phillip an Kuns Work Phone: [facility] Work Phone: Start: 08-07-2023 Non-patient / Non-visit DO Phillip an Kuns Work Phone: [facility] Work Phone: Start: 08-06-2023 Non-patient / Non-visit DO Phillip an Kuns Work Phone: [facility] Work Phone: Start: 08-05-2023 Non-patient / Non-visit DO Phillip an Kuns Work Phone: [facility] Work Phone: Start: 08-04-2023 Non-patient / Non-visit DO Phillip an Kuns Work Phone: [facility] Work Phone: Start: 08-03-2023 Non-patient / Non-visit DO Phillip an Jetts Work Phone: [facility] Work Phone: Start: 07-31-2023 ambulatory Jenaro Lynch Facility:[facility] Start: 07-31-2023 Registered Recurring DO Jenaro Jettjoe Work Phone: [facility] - [facility] Work Phone: Start: 07-26-2023 Non-patient / Non-visit DO Phillip an Kuns Work Phone: [facility] Work Phone: Start: 07-12-2023 End: 07-12-2023 Emergency department patient visit Jenaro Lynch Facility:[facility] Start: 07-12-2023 End: 07-12-2023 Emergency department patient visit DO Jenaro Lynch Work Phone: [facility]Emergency [facility] Work Phone: Start: 07-07-2023 End: 07-07-2023 ambulatory Jenaro Fraustojoe Other [employer] Other Start: 07-07-2023 Telephone encounter [facility] Start: 07-03-2023 End: 07-04-2023 ambulatory Yeyo ROWE Facility:[facility] Start: 06-26-2023 End: 06-26-2023 ambulatory Jenaro Lynch Other [employer] Other Start: 06-26-[address]23 [address] Jenaro Lynch [facility] Start: 06-02-2023 End: 06-03-2023 ambulatory Yeyo ROWE Facility: [place] Start: 06-02-2023 End: 06-02-2023 Patient encounter procedure Yeyo ORWE [facility] Start: 05-16-2023 End: 05-16-2023 ambulatory Jenaro Lynch Other [employer] Other Start: 05-16-[address]23 [address] Jenaro Lynch [facility] Start: 05-03-2023 End: 05-04-2023 ambulatory Yeyo ROWE Facility: [place] Start: 05-03-2023 End: 05-03-2023 Patient encounter procedure [facility] ROWE [facility] Start: 04-28-2023 End: 04-28-2023 ambulatory Jenaro Fraustojoe Other [employer] Other Start: 04-28-2023 [address]phone [address] Jenaro Lynch [facility] Start: 04-18-2023 End: 04-19-2023 ambulatory Yeyo ROWE Facility:[facility] Start: 04-18-2023 End: 04-18-2023 Patient encounter procedure Yeyo ROWE [facility] Start: 04-17-2023 ambulatory Yeyo ROWE Facili ty:[facility] Start: 04-13-2023 End: 04-14-2023 ambulatory Yeyo ROWE Facility:[id number] Start: 04-11-2023 End: 04-11-2023 ambulatory Jenaro Fraustojoe Other [employer] Other Start: 04-11-2023 Telephone encounter Jenaro Lynch [facility] [place] Start: 04-06-2023 End: 04-06-2023 ambulatory Jenaro Lynch Other [employer] Other Start: 04-06-2023 Encounter for other preprocedural examination Jenaro Lynch [facility] [place] Start: 04-06-2023 Office outpatient vi sit 25 minutes Jenaro Lynch [facility] [place] Start: 03-28-2023 End: 03-28-2023 ambulatory Jenaro Lynch Other [employer] Other Start: 03-28-2023 Telephone encounter Jenaro Lynch [facility] [place] Start: 03-20-2023 ambulatory Yeyo ROWE Facili ty:[facility] [place] Start: 03-16-2023 ambulatory Yeyo ROWE Facili ty:[id number] Start: 03-15-2023 End: 03-15-2023 ambulatory Jenaro Lynch Other [employer] Other Start: 03-15-2023 Office outpatient vi sit 25 minutes Jenaro Lynch [facility] [place] Start: 03-10-2023 End: 03-10-2023 ambulatory Jenaro Lynch Other [employer] Other Start: 03-10-2023 Telephone encounter Jenaro Lynch [facility] [place] Start: 02-15-2023 Office outpatient vi sit 15 minutes Jenaro Lynch Work Phone: [facility] 250 DO Work Phone: Start: 02-15-2023 ambulatory Dolores Feldman Facility:[id number] Start: 02-14-2023 End: 02-15-2023 ambulatory Yeyoneel ROWE [place] Start: 02-14-2023 End: 02-14-2023 Patient encounter procedure Yeyo ROWE [facility] Start: 02-08-2023 End: 02-09-2023 ambulatory Yeyo ROWE [place] Start: 02-08-2023 End: 02-08-2023 Patient encounter procedure Yeyo ROWE [facility] Start: 01-30-2023 End: 01-31-2023 ambulatory Yeyoneel ROWE Facility:[facility] Start: 01-30-2023 End: 01-30-2023 Patient encounter procedure Yeyo ROWE [facility] Start: 01-25-[address] Jenaro Lynch Facility:[id number] Start: 01-17-2023 End: 01-17-2023 ambulatory Jenaro Lynch Other [facility] [employer] Other Start: 01-17-2023 Telephone encounter Jenaro Lynch [facility] Start: 01-11-2023 Office outpatient vi sit 25 minutes Jenaro Lynch Work Phone: [facility] 600 DO Work Phone: Start: 01-11-2023 ambulatory Dolores Feldamn Facility:[id number] Start: 12-28-2022 End: 12-29-2022 ambulatory Yeyo ROWE Facility:[facility] Start: 12-28-2022 End: 12-28-2022 Patient encounter procedure Yeyo ROWE [facility] [place] Start: 12-21-2022 ambulatory Yeyo ROWE Facili ty:[facility] Start: 12-01-2022 End: 12-01-2022 ambulatory Jenaro Lynch Other [employer] Other Start: 12-01-2022 Office outpatient vi sit [address] [facility] Start: 11-30-2022 ambulatory Yeyo ROWE Facility :[facility] Start: 11-23-2022 End: 11-24-2022 ambulatory Yeyo ROWE Facility:[facility] Start: 11-23-2022 End: 11-23-2022 Patient encounter procedure Yeyo ROWE [facility] Start: 10-07-2022 End: 10-07-2022 ambulatory Jenaro Lynch Other [employer] Other Start: 10-07-[address] Lynch [facility] Start: 09-27-2022 End: 09-27-2022 ambulatory Jenaro Lynch - [facility] Facility:[facility] Start: 09-27-2022 End: 09-27-2022 ambulatory DO Jenaro Lynch Work Phone: [facility] Work Phone: Start: 09-27-2022 End: 09-27-2022 Patient encounter procedure DO Jenaro Lynch Work Phone: [facility] [place] Work Phone: Start: 09-21-2022 End: 09-21-2022 ambulatory Jenaro Fraustojoe Other [employer] Other Start: 09-21-2022 Telephone encounter Jenaro Syed [facility] [place] Start: 09-14-2022 End: 09-14-2022 ambulatory Jenaro Fraustojoe Other [employer] Other Start: 09-14-2022 Telephone encounter Jenaro Lynch [facility] [place] Start: 09-02-2022 End: 09-02-2022 Patient encounter procedure DO Jenaro Syed Work Phone: [facility] [place] Work Phone: Start: 08-25-2022 End: 08-25-2022 ambulatory Tona Mapus Other [employer] Other Start: 08-25-2022 Telephone encounter Akinmaría Mapus [facility] Start: 08-22-2022 End: 08-22-2022 ambulatory Jenaro Lynch Other [employer] Other Start: 08-22-2022 Telephone encounter Jenaro Syed [facility] [place] Start: 08-05-2022 End: 08-05-2022 ambulatory Jenaro Lynch Other [employer] Other Start: 08-05-2022 Telephone encounter Jenaro Syed [facility] [place] Start: 08-04-2022 End: 08-04-2022 ambulatory Jenaro Lynch Other [employer] Other Start: 08-04-2022 Telephone encounter Jenaro Lynch [facility] [place] Start: 07-28-2022 End: 07-28-2022 ambulatory Jenaro Lynch Other [employer] Other Start: 07-28-2022 Telephone encounter Jenaro Lynch [facility] Start: 07-25-2022 End: 07-25-2022 ambulatory Jenaro Lynch Other [employer] Other Start: 07-25-2022 Nursing evaluation o f patient and report Jenaro Lynch [facility] [place] Start: 07-19-2022 End: 07-19-2022 ambulatory Jenaro Lynch Other [employer] Other Start: 07-19-2022 Telephone encounter Jenaro Lynch [facility] [place] Start: 07-15-2022 End: 07-15-2022 ambulatory Jenaro Lynch Other [employer] Other Start: 07-15-2022 Telephone encounter Jenaro Lynch [facility] [place] Start: 07-13-2022 End: 07-13-2022 ambulatory Jenaro Lynch Other [employer] Other Start: 07-13-2022 Nursing evaluation o f patient and report Jenaro Lynch [facility] [place] Start: 07-12-[address] [facility] Start: 07-05-2022 End: 07-05-2022 ambulatory Jenaro Lynch Other [employer] Other Start: 07-05-2022 Telephone encounter Jenaro Lynch [facility] [place] Start: 07-05-2022 Rx Renewal Jenaro Lynch Work Phone: [facility] 250 DO Work Phone: Start: 07-04-2022 End: 07-04-2022 ambulatory Jenaro Lynch Other [employer] Other Start: 07-04-2022 Office outpatient vi sit 25 minutes Jenaro Lynch [facility] [place] Start: 06-30-2022 End: 06-30-2022 ambulatory Jenaro Lynch Other [employer] Other Start: 06-30-2022 Telephone encounter Jenaro Lynch [facility] [place] Start: 05-25-2022 End: 05-25-2022 ambulatory Jenrao Lynch Other [employer] Other Start: 05-25-2022 Telephone encounter Jenaro Lynch [facility] [place] Start: 04-25-2022 End: 04-25-2022 ambulatory Jenaro Lynch Other [employer] Other Start: 04-25-2022 Telephone encounter Jenaro Lynch [facility] [place] Start: 04-19-2022 End: 04-19-2022 ambulatory Jenaro Lynch Other [employer] Other Start: 04-19-2022 Telephone encounter Jenaro Lynch [facility] [place] Start: 03-22-2022 End: 03-22-2022 ambulatory Jenaro Lynch Other [employer] Other Start: 03-22-2022 Telephone encounter Jenaro Lynch [facility] [place] Start: 03-01-2022 End: 03-01-2022 ambulatory Jenaro Lynch Other [employer] Other Start: 03-01-2022 Telephone encounter Jenaro Lynch [facility] [place] Start: 02-18-2022 End: 02-18-2022 ambulatory Jenaro Lynch Other [employer] Other Start: 02-18-2022 Telephone encounter Jenaro Lynch [facility] [place] Start: 02-15-2022 End: 02-15-2022 ambulatory Verona Whaley Other [employer] Other Start: 02-15-2022 Office outpatient vi sit 25 minutes Jenaro Lynch [facility] [place] Start: 02-15-2022 Telephone encounter Verona Whaley [facility] Start: 01-21-2022 End: 01-21-2022 ambulatory Jenaro Lynch Other [employer] Other Start: 01-21-2022 Telephone encounter Jenaro Lynch [facility] [place] Start: 01-19-2022 End: 01-19-2022 ambulatory Jenaro Lynch Other [employer] Other Start: 01-19-2022 Telephone encounter Jenaro Lynch [facility] [place] Start: 01-13-2022 End: 01-13-2022 ambulatory Jenaro Lynch Other [employer] Other Start: 01-13-2022 Telephone encounter Jenaro Lynch [facility] [place] Start: 12-23-2021 End: 12-23-2021 ambulatory Jenaro Lynch Other [employer] Other Start: 12-23-2021 Telephone encounter Jenaro Lynch [facility] [place] Start: 11-24-2021 End: 11-24-2021 ambulatory Jenaro Lynch Other [employer] Other Start: 11-24-2021 Telephone encounter Jenaro Lynch [facility] [place] Start: 11-03-2021 Rx Renewal Jenaro Lynch Work Phone: [facility] 250 DO Work Phone: Start: 10-26-2021 Office outpatient vi sit 25 minutes Jenaro Lynch Work Phone: [facility] 250 DO Work Phone: Start: 10-25-2021 End: 10-25-2021 ambulatory Jenaro Lynch Other [employer] Other Start: 10-25-2021 Telephone encounter Jenaro Lynch [facility] [place] Start: 10-19-2021 End: 10-19-2021 ambulatory Amina Kinseys Other [employer] Other Start: 10-19-2021 Office outpatient vi sit 25 minutes Aziz Bakhous [facility] Start: 10-18-2021 End: 10-18-2021 ambulatory Aziz Bakhous Other [employer] Other Start: 10-18-2021 Telephone encounter Azjuan Tonyhous [facility] Start: 10-12-2021 End: 10-13-2021 ambulatory DUARET HENRY . Facility: Start: 10-08-2021 End: 10-08-2021 ambulatory Jenaro Lynch Other [employer] Other Start: 10-08-2021 Telephone encounter Jenaro Lynch [facility] Start: 09-22-2021 End: 09-22-2021 ambulatory Jenaro Lynch Other [employer] Other Start: 09-22-2021 Telephone encounter Jenaro Lynch [facility] Start: 09-21-2021 End: 09-21-2021 ambulatory Jenaro Lynch Other [employer] Other Start: 09-21-2021 Telephone encounter Jenaro Lynch [facility] Start: 08-09-2021 End: 08-09-2021 ambulatory Jenaro Lynch Other [employer] Other Start: 08-09-2021 Telephone encounter Jenaro Lynch [facility] Start: 08-02-2021 End: 08-02-2021 ambulatory Jenaro Lynch Other [employer] Other Start: 08-02-2021 Telephone encounter Jenaro Lynch [facility] Start: 07-27-2021 End: 07-27-2021 ambulatory Jenaro Lynch Other [employer] Other Start: 07-27-2021 Office outpatient vi sit [address] [facility] Start: 06-23-2021 End: 06-23-2021 ambulatory Jenaro Lynch Other [employer] Other Start: 06-23-2021 Telephone encounter Jenaro Lynch [facility] Start: 06-22-2021 Rx Renewal Jenaro Lynch Work Phone: [facility] 250 DO Work Phone: Start: 05-03-2021 End: 05-03-2021 ambulatory Jenaro Lynch Other [employer] Other Start: 05-03-2021 Telephone [address] Jenaro Lynch [facility] Procedures Date Procedure Procedure Detail Performing Clinician [...] Work Phone: Appendectomy Yeyoneel ROWE Bilateral Carpal Timotyh uli Surgery Yeyo ROWE Bilateral Eye Surgery [...] Raulito Inman, Status: Pen, Time: 2:40 PM [facility] 250 DO Work Phone: Start: 08-10-2023 Acid Fast Culture Acid Fast Culture [facility] Start: 08-05-2023 Wound Culture Wound Culture [facility] Start: 07-12-2023 Duplex scan of lower limb veins US venous duplex LE BI [facility] Start: 07-12-2023 US Lower extremity v ein - bilateral [facility] Start: 07-12-2023 Duplex scan veins of upper limb US venous duplex UE LT [facility] Start: 07-12-2023 US Upper extremity v ein - left [facility] Start: 02-15-2023 FUV, Provider: Dolores Velaqzuez, Status: Pen, Time: 10:00 AM FUV, Provider: Dolores Velazquez, Status: Pen, [facility]: 10:[facility] Work Phone: Start: 01-25-2023 STRESS NUC, Provider : CHARISSE PEMBERTONI NUCLEAR 01,[id number], Status: Pen, Time: 8:30 AM STRESS NUC, Provider: CHARISSE PEMBERTONI NUCLEAR 01,[id number], Status: Pen, Time: 8:30 AM [facility] 600 DO Work Phone: Start: 07-12-2022 FUV, Provider: Raulito Inman, Status: Pen, Time: 9:20 AM FUV, Provider: Raulito Inman, Status: Pen, Time: 9:20 AM [facility] 250 DO Work Phone: Start: 10-26-2021 FUV, Provider: Raulito Inman, Status: Pen, Time: 9:30 AM FUV, Provider: Raulito Inman, Status: Pen, Time: 9:30 AM [facility] 250 DO Work Phone: Patient Education Dependent Edema (DC) [facility] Work Phone: Patient referral [facility] Work Phone: Immunizations Immunization Date Immunization Notes Care Provider Sachin pettit 11-13-2020 Pfizer-BioNTech COVI D-19 Vacc 30 MCG/0.3ML Intramuscular Suspension Jenaro Lynch Work Phone: [facility] 10-23-2020 Pfizer-BioNTech COVI D-19 Vacc 30 MCG/0.3ML Intramuscular Suspension Jenaro Lynch Work Phone: [facility] 01-14-2019 influenza, seasonal, injectable Jenaro Lynch Other [facility] 01-14-2019 influenza virus vacc ine, unspecified formulation Yeyo ROWE [facility] 04-02-2018 influenza virus vacc ine, unspecified formulation Yeyo ROWE [facility] 04-02-2018 influenza, injectabl e, quadrivalent, preservative free DO Jenaro Lynch Work Phone: [facility] 03-05-2018 influenza virus vacc ine, unspecified formulation Jenaro Lynch Work Phone: [facility] 250 DO Work Phone: 03-05-2018 pneumococcal polysaccharide vaccine, 23 valent Jenaro Lynch Work Phone: [facility] 250 DO Work Phone: 03-07-2016 influenza virus vacc ine, unspecified formulation Yeyo ROWE [facility] 03-07-2016 influenza, injectabl e, quadrivalent, preservative free Jenaro Lynch Work Phone: [facility] 600 DO Work Phone: 02-22-2016 pneumococcal polysaccharide vaccine, 23 valent Jenaro Lynch Work Phone: [facility] Payers Date Payer Category Payer Self-pay [id number] 2022 Medicaid [id number] 1965 Unknown [id number] 2.16.84 0.1.217589.3.579.2.593 1965 Unknown [id number] .16.8 40.1.480662.3.579.2.1068 1965 Unknown [id number] 2.16. 840.1.139278.3.579.2.356 1965 Unknown [id number] 2.16. 840.1.158648.3.579.2.356 1965 Unknown [id number] 2.16. 840.1.513440.3.579.2.356 1965 Unknown [id number] 2.16.8 40.1.710000.3.579.2.727 1965 Unknown [id number] 2.16.8 40.1.182305.3.579.2.72 1965 Unknown [id number] 2.16.8 40.1.683632.3.579.2 1965 Unknown [id number] 2.16.8 40.1.159081.3.579.2. 1965 Unknown [id number] 2.16.8 40.1.060271.3.579.2 1965 Unknown [id number] 2.16.8 40.1.171110.3.579.2 1965 Unknown [id number] 2.16.8 40.1.848828.3.579.2 1965 Unknown [id number] 2.16.8 40.1.915695.3.579.2 1965 Unknown [id number] 2.16.8 40.1.439348.3.579.2 1965 Unknown [id number] 2.16.8 40.1.902259.3.579.2 1965 Unknown [id number] 2.16.8 40.1.229408.3.579.2 1965 Unknown [id number] 2.16.8 40.1.309792.3.579.2 1965 Unknown [id number] 2.16.8 40.1.345330.3.579.2 1965 Unknown [id number] 2.16.8 40.1.516609.3.579.2. 1965 Unknown [id number] 2.16.8 40.1.679852.3.579.2.727 1959 Unknown [id number] 2.1 6.840.1.590588.19 Unknown [employer] Unknown [id number] 2.16.8 40.1.499809.3.579.2.531 Unknown [id number] 2.16.8 40.1.835924.3.579.2.531 Unknown [id number] 2.16.8 40.1.984134.3.579.2.531 Unknown [id number] 2.16.8 40.1.056049.3.579.2.531 Social History Date Type Detail Facility Caffeine use Caffeine use i-drive Other Comment on above: 2 cups coffee, 4-6 c ups tea daily, occaional soda; qauit 07/2020; Sex Assigned At [facility] Start: 07-14-2020 End: 07-12-2023 Tobacco smoking status NHIS Smoker (finding) [facility] Start: 1965 Sex Assigned At Male F [facility] Start: 11-23-2022 End: 06-02-2023 Tobacco smoking status Heavy tobacco smoker (finding) [facility] Tobacco smoking status Never [facility] Medical Equipment Procedure Code Equipment [...] bilia ry stentMultiple peripheral artery stent, bare-metal ()[id number] [facility] Start: 07-14-2020 Functional Status Date Assessment Result Facility 06-02-2023 Functional Status N/A [facility] 02-14-2023 Functional Status N/A [facility] 01-30-2023 Functional Status N/A [facility] 11-23-2022 Functional Status N/A [facility] Clinical Notes 06-23-2021 to 07-13-2023 Note Date & Type Note Facility 07-13-2023 Hospital Discharg e instructions Follow Up Care 07/13/2023 12:04:02 With:SOLEDAD HERRERA, Yeyo Blum, URL Address: [address] [place] [address] [place] [address]- When: Unknown [facility] JDC[facility]osph[facility] 06-26-2023 Evaluation note Encounter Date Diagnosis Assessment Notes Jun, Hyperlipidemia (ICD-10 - E78.5) [employer] Other 12-29-2023 Hospital Discharge instructions Patient Education [...] urethra. Follow these instructions at home: Take qeqr-vno-lomggta and prescription medicines only as told by [...] provider. Document Revised: 12/08/2021 Document Reviewed: 12/08/2021 [employer] Patient Education 2022 [employer] Follow Up Care 06/01/2023 14:05:36 With:SOLEDAD HERRERA, Yeyo Blum, URL Address: [address] [place] [address]- When: Unknown [facility] 12-12-2023 Evaluation note* Encounter Date Diagnosis Assessment Notes Treatment Notes Treatment Clinical Notes May, 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) [employer] Other 11-24-2023 Evaluation note* Encounter Date Diagnosis Assessment Notes Treatment Notes Treatment Clinical Notes Apr, Diabetic nephropathy (ICD-10 - E11.21) [employer] Other 11-07-2023 Evaluation note* Encounter Date Diagnosis Assessment Notes Treatment Notes Treatment Clinical Notes Apr, Left arm pain (ICD-10 - M79.602) [employer] Other 11-02-2023 Evaluation note* Encounter Date Diagnosis [...] and to have his surgery as scheduled. 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 He was found to have developed [...] to continue to montior this at home. [employer] Other 10-09-2023 Note [id number]-14[facility]2023 [id number]:127[facility]09-12-2023 Note [id number]:127[facility] 02-14-2023 Hospital Discharge instructions Patient Education 02/14/2023 [...] including vitamins, herbs, eye drops, creams, and nzbz-hsa-jtlsqsc medicines. Any problems you or family members [...] provider tells you to take them. Taking rnqt-eog-przqztv medicines, vitamins, herbs, and supplements. Surgery safety [...] provider. Document Revised: 02/15/2022 Document Reviewed: 02/15/2022 [employer] Patient Education 2022 [employer]. [facility]08-28-2023 Hospital Discharge instructions Patient Education [...] including vitamins, herbs, eye drops, creams, and uwjn-kbf-swjbcbk medicines. ?Whether you are or may be [...] provider. Document Revised: 02/02/2022 Document Reviewed: 12/25/2020 [employer] Patient Education 2022 [employer]. 01/30/2023 11:22:30 Cystoscopy Cystoscopy Cystoscopy is a [...] including vitamins, herbs, eye drops, creams, and kqtk-uku-ltuztum medicines. Any problems you or family members [...] provider tells you to take them. Taking jdkv-rzf-rwxhvgh medicines, vitamins, herbs, and supplements. Tests You [...] Follow these instructions at home: Medicines Take yvrh-eln-kwfimyo and prescription medicines only as told by [...] provider. Document Revised: 02/02/2022 Document Reviewed: 01/01/2021 [employer] Patient Education 2022 [employer]. Follow Up Care 11/23/2022 13:02:56 With:SOLEDAD HERRERA, Yeyo Blum, URL Address: [facility] [address] , [place] [address]- [phone] When: Unknown Comments:sched cysto/uros [facility] 08-15-2023 Evaluation note* Encounter Date Diagnosis Assessment Notes Treatment Notes Treatment Clinical Notes Jan, Diabetic nephropathy (ICD-10 - E11.21) [employer] Other 06-29-2023 Evaluation note* Encounter Date Diagnosis [...] reviewed. 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 [employer] Other 06-21-2023 Hospital Discharge instructions Patient Education [...] provider. Document Revised: 08/11/2021 Document Reviewed: 05/07/2021 [employer] Patient Education 2021 [employer]. Follow Up Care 09/14/2022 14:23:26 With:SOLEDAD HERRERA, Yeyo Blum, URL Address: [facility] [address] , [place] [address]- When: Unknown [facility] 05-05-2023 Evaluation note* Encounter Date Diagnosis Assessment Notes Treatment Notes Treatment Clinical Notes October, Erectile dysfunction, unspecified erectile dysfunction type (ICD-10 - N52.9) [employer] Other 04-19-2023 Evaluation note* Encounter Date Diagnosis Assessment Notes Treatment Notes Treatment Clinical Notes Sep, 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) [employer] Other 04-12-2023 Evaluation note* Encounter Date Diagnosis Assessment Notes Treatment Notes Treatment Clinical Notes Sep, 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) Sep, 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) [employer] Other 03-20-2023 Evaluation note* Encounter Date Diagnosis Assessment Notes Treatment Notes Treatment Clinical Notes Aug, Diabetic nephropathy (ICD-10 - E11.21) [employer] Other 03-03-2023 Evaluation note* Encounter Date Diagnosis Assessment Notes Treatment Notes Treatment Clinical Notes Aug, Pain in right leg (ICD-10 - M79.604) [employer] Other 03-02-2023 Evaluation note* Encounter Date Diagnosis Assessment Notes Treatment Notes Treatment Clinical Notes Aug, Pain in right leg (ICD-10 - M79.604) [employer] Other 02-20-2023 Evaluation note* Encounter Date Diagnosis Assessment Notes Treatment Notes Treatment Clinical Notes Jul, Intractable episodic headache, unspecified headache type (ICD-10 - R51.9) [employer] Other 02-14-2023 Evaluation note* Encounter Date Diagnosis Assessment Notes Treatment Notes Treatment Clinical Notes Jul, Acute intractable headache, unspecified headache type (ICD-10 - R51.9) [employer] Other 02-08-2023 Evaluation note* Encounter Date Diagnosis Assessment Notes Treatment Notes Treatment Clinical Notes Jul, Headache (ICD-10 - R51.9) [employer] Other 01-30-2023 Evaluation note* Encounter Date Diagnosis [...] medication and we will continue to monitor. [employer] Other 12-21-2022 Evaluation note* Encounter Date Diagnosis Assessment Notes Treatment Notes Treatment Clinical Notes May, Diabetic nephropathy (ICD-10 - E11.21) [employer] Other 11-21-2022 Evaluation note* Encounter Date Diagnosis Assessment Notes Treatment Notes Treatment Clinical Notes Apr, Diabetic nephropathy (ICD-10 - E11.21) [employer] Other 11-15-2022 Evaluation note* Encounter Date Diagnosis Assessment Notes Treatment Notes Treatment Clinical Notes Apr, Pain in right leg (ICD-10 - M79.604) [employer] Other 10-18-2022 Evaluation note* Encounter Date Diagnosis Assessment Notes Treatment Notes Treatment Clinical Notes Mar, Diabetic nephropathy (ICD-10 - E11.21) [employer] Other 09-13-2022 Evaluation note* Encounter Date Diagnosis Assessment Notes Treatment Notes Treatment Clinical Notes Feb, Hypertensive chronic kidney disease with stage 1 through stage 4 chronic kidney disease, or unspecified chronic kidney disease (ICD-10 - I12.9) [employer] Other 09-13-2022 Evaluation note* Encounter Date Diagnosis [...] scheduled. 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 Feb, Pain in right leg [...] Noted upon review of blood work results. [employer] Other 08-19-2022 Evaluation note* Encounter Date Diagnosis Assessment Notes Treatment Notes Treatment Clinical Notes Jan, Diabetic nephropathy (ICD-10 - E11.21) [employer] Other 08-17-2022 Evaluation note* Encounter Date Diagnosis Assessment Notes Treatment Notes Treatment Clinical Notes Jan, Diabetic nephropathy (ICD-10 - E11.21) [employer] Other 07-21-2022 Evaluation note* Encounter Date Diagnosis Assessment Notes Treatment Notes Treatment Clinical Notes Dec, Diabetic nephropathy (ICD-10 - E11.21) [employer] Other 06-22-2022 Evaluation note* Encounter Date Diagnosis Assessment Notes Treatment Notes Treatment Clinical Notes Nov, Diabetic nephropathy (ICD-10 - E11.21) [employer] Other 05-23-2022 Evaluation note* Encounter Date Diagnosis Assessment Notes Treatment Notes Treatment Clinical Notes October, Diabetic nephropathy (ICD-10 - E11.21) [employer] Other 05-17-2022 Evaluation note* Encounter Date Diagnosis [...] E11.59) October, 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 Inman. For this October, Other He did quit smoking since July 2020 [employer] Other 05-16-2022 Evaluation note* Encounter Date Diagnosis Assessment Notes Treatment Notes Treatment Clinical Notes October, Hypertensive chronic kidney disease with stage 1 through stage 4 chronic kidney disease, or unspecified chronic kidney disease (ICD-10 - I12.9) October, Stage 3 chronic kidney disease, unspecified whether stage 3a or 3b CKD (ICD-10 - N18.30) [employer] Other 05-06-2022 Evaluation note* Encounter Date Diagnosis Assessment Notes Treatment Notes Treatment Clinical Notes October, Pain in right leg (ICD-10 - M79.604) October, Pain in left leg (ICD-10 - M79.605) [employer] Other 04-20-2022 Evaluation note* Encounter Date Diagnosis Assessment Notes Treatment Notes Treatment Clinical Notes Sep, Diabetic nephropathy (ICD-10 - E11.21) [employer] Other 04-19-2022 Evaluation note* Encounter Date Diagnosis Assessment Notes Treatment Notes Treatment Clinical Notes Sep, Anxiety (ICD-10 - F41.9) Sep, Hypertensive chronic kidney disease with stage 1 through stage 4 chronic kidney disease, or unspecified chronic kidney disease (ICD-10 - I12.9) [employer] Other 03-07-2022 Evaluation note* Encounter Date Diagnosis Assessment Notes Treatment Notes Treatment Clinical Notes Aug, Anxiety (ICD-10 - F41.9) [employer] Other 02-22-2022 Evaluation note* Encounter Date Diagnosis [...] 12 pound weight loss from last visit. [employer] Other [id number] Evaluation note* Encounter Date Diagnosis Assessment Notes Treatment Notes Treatment Clinical Notes Jun, Diabetic nephropathy (ICD-10 - E11.21) [employer] Other Evaluation + Plan note Future Appointments Appointment Date:12/21/2022 11:00:00 AM Scheduled Provider: Location:[facility] [place] Appointment Type:URO Nurse Visit Appointment Date:01/30/2023 10:30:00 AM Scheduled Provider:Yeyo ROWE MD Location:[facility] [place] Appointment Type:URO Office Visit [facility] [place] Evaluation + Plan note Future Appointments Appointment Date:01/30/2023 10:15:00 AM Scheduled Provider:Yeyo ROWE MD Location:[facility] Appointment Type:URO Office Visit [facility] Evaluation + Plan note Future Appointments Appointment Date:02/01/2023 10:00:00 AM Scheduled Provider: Location:[facility] Appointment Type:Urology CALL PAT FT Appointment Date:02/08/2023 09:00:00 AM Scheduled Provider: Location:[facility] Appointment Type:Urology FT Appointment Date:02/14/2023 09:15:00 AM Scheduled Provider: Location:[facility] Appointment Type:Urology FT [facility] evaluation + Plan note Future Appointments Appointment Date:02/14/2023 09:15:00 AM Scheduled Provider: Location:[facility] Appointment Date:03/20/2023 08:45:00 AM Scheduled Provider: Location:[facility] Appointment Type:URO Nurse Visit Appointment Date:04/05/2023 08:00:00 AM Scheduled Provider:Yeyo ROWE MD Location:[facility] Appointment Date:05/03/2023 08:45:00 AM Scheduled Provider:Yeyo ROWE MD Location:[facility] Appointment Type:URO Office Visit [facility] Evaluation + Plan note Future Appointments Appointment Date:07/03/2023 10:15:00 AM Scheduled Provider:Yeyo ROWE MD [facility] App[facility] Type:URO Office Visit [facility] evaluation noteNo InformationNort Intale Other evaluation noteNo assessment information available [facility] Work Phone: History general Narrative - Reported* [...] hydrocele repair 08/2016 Surgical History cardiac cath [facility] 04/02/18 Surgical History Lt LE iliac DSA, angioplasty & stenting 09/27/2018 Surgical History Left Angiogram with one stent - Dr. Boss 07/2020 Hospitalization History Deep Depression, Anxiety; [facility] 11-11-10 Hospitalization History [facility] hypoxemia and hyper capnic respirtory failure 11/11/16 Hospitalization History chest pain [facility] 04/02/18 [employer] Other History of Present illness NarrativeReturns in [...] impact on blood pressure and diabetes were reviewed-[facility] 250 DO Work Phone: History of [...] regimen. He denies medication side effects. [facility] 600 DO Work Phone: History of [...] medication regimen. He denies medication side effects. [facility] [employer] 250 DO Work Phone: Hospital course Narrative No data available for this section [facility] Discharge instructions No data available for this section [facility] Progress note No data available for this section [facility] Chief Complaint SOLOMON FELDMAN is being seen [...] adache, unspecified headache type (R51.9) Referral Organization [facility] [email or web address] [place] Referring Provider First Name Jenaro Referring Provider Last Name Syed Referring Provider Specialty Family [place] Referred Organization [facility] Referred Provider Lyssa Sharpe Referred Address [address] [place],[address] Referred Provider Specialty Neurology Referral Priority Routine [facility] 10:19:08 AM >Received today. [facility] request us to fill out their form and attach to Referral and send it to them and they will call patient to schedule. Referral was sent P2P and fax insurance card since it would not let me attach to referral [facility] 07/28/2022 10:23:53 AM >Spoke with Marilynn at [facility] and patient has been scheduled and cancelled the appt for 07/26/22 [facility] 07/28/2022 10:27:39 AM >Telephone encounter was sent Reason 03/31/22 @ 2:45pm consult and treat Diagnosis 1 Type 2 diabetes bobby itus with circulatory disorder (E11.59) Referral Organization [facility] [email or web address] [place] Referring Provider First Name Jenaro Referring Provider Last Name Syed Referring Provider Specialty [facility] [place] Referred Organization [facility] Referred Provider Doris Barnes Referred Address [address] [place],[address] Referred Provider Specialty Nurse Jono calderon Referral Priority Routine Referral Appointment Date 2022-03-31 [facility] 02:28:10 PM >Received today and sent P2P [facility] 02/16/2022 07:50:21 AM >Patient has been scheduled [...] this at the same time, * Needs [id number] to sendRefills-bpk to send rxrefil - bpk to send rxLAB ORDERSRENAL 6 month Follow uprefillrefillclinicalRefills-bpk to send rxlyrica rx printedDM ReferralClinicaldiscuss PSA resultsclinicalClinicalRefills-bpk to send rxrefillrefill- BPK to send rxRefills-bpk to send rxClinicalheadachesClinicaltoradol shottoradol shotclinicaltoradol per bpkNeurology Referral UpdateRefills-bpk to send rxrefillRefillDM Referral UpdaterefillRefillsRefillsTKM CancelledMED CHECKbpk to send [id number] check/hospital f/u-bellevueRefillsR/S surgical clearanceclinicalrefillrefillrefillClinical Care Teams (unrecognized sec tion and content) Team Status: Active Member Role Status Elda Lynch DO Primary Care Provider Active Team Status: Inactive Member Role Status Dates Jenaro Lynch DO Primary Care Provider Active Shana Mclaughlin PA-C Attending Provider Active Team Status: Inactive Member Role Status Elda Lynch DO Primary Care Provider Active Jenaro Lynch DO [facility] Attending Provider Active Team Status: [...] DATE CREATED AUTHOR AUTHOR'S ORGANIZ ATION 01/27/2023 [facility] DATE CREATED AUTHOR AUTHOR'S ORGANIZ ATION 02/16/2023 [facility] DATE CREATED AUTHOR AUTHOR'S ORGANIZ ATION 02/16/2023 [employer] DATE CREATED AUTHOR AUTHOR'S ORGANIZ ATION 09/08/2023 [facility] DATE CREATED AUTHOR AUTHOR'S JOHN DAVIS 09/27/2023 [facility] FOR RECORDS PERTAINING TO PATIENTS [...] BE BASED ON THE PRIMARY CLINICAL RECORDS. [facility] [employer] [facility]. provides no warranty or guarantee of the accuracy or completeness of information in this document.
--- NOTE | 2023-09-30 19:02 | P.HP_ITS ---
HPI H&P: HPI History of Present Illness Chief complaint: FOOT SURGERY-POSS SEPSIS hypocalcemia chronic Narrative: Patient had surgery last week, 3 days ago started having increasing pain in foot, increasing weakness, some mild shortness of breath, progressive weakness. When symptoms got worse today he presented to the emergency room. In the ER found to have severe hypotension, positive lactate. When I saw patient in the ER, moderate distress secondary to pain, not really altered but cannot slow to answer questions. Opioid HPI Opioid Management Most Recent Opioid Data: Last Pain Scale 5 09/21/23 11:16 Last Pain Intensity 9 03/04/23 10:36 Ur Phencyclidine Scrn Negative (NEGATIVE) 03/03/23 17:24 Review of Systems ROS Status of ROS 10 or more systems reviewed and unremark able except as noted in history and below [facility] Medical History (Updated 09/30/23 @ 18:11 by Chandrika Castanon) Abscess of right foot ?L02.611 - Cutaneous abscess of right foot (ICD-10) Chronic ulcer of right foot ?L97.519 - Non-pressure chronic ulcer of other part of right foot with unspecified severity (ICD-10) Anticoagulated ?Z79.01 - [facility] (current) use of anticoagulants (ICD-10) Diabetic infection of right foot ?E11.628 - Type 2 diabetes mellitus with other skin complications (ICD-10) ?L08.9 - Local infection of the skin and subcutaneous tissue, unspecified (ICD-10) Puncture wound of right foot ?S91.331A - Puncture wound without foreign body, right foot, initial encounter (ICD-10) Cellulitis of foot, right ?L03.115 - Cellulitis of right lower limb (ICD-10) ROEL (acute kidney injury) ?N17.9 - Acute kidney failure, unspecified (ICD-10) Sepsis ?A41.9 - Sepsis, unspecified organism (ICD-10) CHF (congestive heart failure) ?I50.9 - Heart failure, unspecified (ICD-10) Migraine headache ?G43.909 - Migraine, unspecified, not intractable, without status migrainosus (ICD-10) Tobacco abuse ?Z72.0 - Tobacco use (ICD-10) DM2 (diabetes mellitus, type 2) ?E11.9 - Type 2 diabetes mellitus without complications (ICD-10) Carpal tunnel syndrome ?G56.00 - Carpal tunnel syndrome, unspecified upper limb (ICD-10) Back pain ?M54.9 - Dorsalgia, unspecified (ICD-10) Arthritis ?M19.90 - Unspecified osteoarthritis, unspecified site (ICD-10) Restless leg ?G25.81 - Restless legs syndrome (ICD-10) GERD (gastroesophageal reflux disease) ?K21.9 - Gastro-esophageal reflux disease without esophagitis (ICD-10) High cholesterol ?E78.00 - Pure hypercholesterolemia, unspecified (ICD-10) Myocardial infarction ?I21.9 - Acute myocardial infarction, unspecified (ICD-10) Coronary artery disease ?I25.10 - Atherosclerotic heart disease of [place] coronary artery without angina pectoris (ICD-10) BPH with obstruction/lower urinary tract symptoms ?N40.1 - Benign prostatic hyperplasia with lower urinary tract symptoms (ICD- 10) ?N13.8 - Other obstructive and reflux uropathy (ICD-10) Dementia ?F03.90 - Unspecified dementia, unspecified severity, without behavioral disturbance, psychotic disturbance, mood disturbance, and anxiety (ICD-10) CKD stage 4 due to type 2 diabetes mellitus ?E11.22 - Type 2 diabetes mellitus with diabetic chronic kidney disease (ICD- 10) ?N18.4 - Chronic kidney disease, stage 4 (severe) (ICD-10) Hyperlipidemia ?E78.5 - Hyperlipidemia, unspecified (ICD-10) Polyp of prostate with urinary obstruction ?N40.1 - Benign prostatic hyperplasia with lower urinary tract symptoms (ICD- 10) ?N13.8 - Other obstructive and reflux uropathy (ICD-10) Femoral artery stenosis ?I70.209 - Unspecified atherosclerosis of [place] arteries of extremities, unspecified extremity (ICD-10) Glaucoma ?H40.9 - Unspecified glaucoma (ICD-10) Carpal tunnel syndrome, bilateral ?G56.03 - Carpal tunnel syndrome, bilateral upper limbs (ICD-10) Gout ?M10.9 - Gout, unspecified (ICD-10) COPD (chronic obstructive pulmonary disease) ?J44.9 - Chronic obstructive pulmonary disease, unspecified (ICD-10) Neuropathy ?G62.9 - Polyneuropathy, unspecified (ICD-10) Chronic kidney disease ?N18.9 - Chronic kidney disease, unspecified (ICD-10) Hypertension ?I10 - Essential (primary) hypertension (ICD-10) Weakness ?R53.1 - Weakness (ICD-10) Surgical History (Updated 09/15/23 @ 10:12 by Shana George NP) H/O foot surgery (08/10/23) ?Z98.890 - Other specified postprocedural states (ICD-10) S/P TURP (04/13/23) ?Z90.79 - Acquired absence of other genital organ(s) (ICD-10) H/O foot surgery (08/05/23) ?Z98.890 - Other specified postprocedural states (ICD-10) History of heart artery stent ?Z95.5 - Presence of coronary angioplasty implant and graft (ICD-10) History of spinal surgery ?Z98.890 - Other specified postprocedural states (ICD-10) History of colonoscopy ?Z98.890 - Other specified postprocedural states (ICD-10) History of carpal tunnel release ?Z98.890 - Other specified postprocedural states (ICD-10) History of cataract extraction ?Z98.49 - Cataract extraction status, unspecified eye (ICD-10) History of appendectomy ?Z90.49 - Acquired absence of other specified parts of digestive tract (ICD- 10) History of heart artery stent ?Z95.5 - Presence of coronary angioplasty implant and graft (ICD-10) Family History (Updated 03/03/23 @ 18:46 by Darling Sharma RN) Mother Family history of CHF (congestive heart failure) Family history of diabetes mellitus Family history of hypertension Grandfather Family history of CHF (congestive heart failure) Family history of diabetes mellitus Family history of hypertension Family history of myocardial infarction Grandmother Family history of hypertension Social History (Updated 08/10/23 @ 09:23 by Mariely Fox) Within the past year, how often did you have a drink containing alcohol: never Score interpretation: A score less than 4 is consistent with normal alcohol consumption. Smoking status: Current every day smoker What tobacco products do you use: cigarettes Cigarettes per day: 20 Years smoked: 42 Smoking pack-years: 42.00 Non-prescribed substance use: denies use Previous occupational history: DISABLED Highest level of school completed/degree received: high school graduate Gender Identity: male Meds Home Medications and Allergies Home Medications ?Medication ?Instructions ?Recorded ?Confirmed ?Type aspirin 81 mg tablet,delayed 81 mg PO DAILY 03/03/23 09/21/23 History release atorvastatin 80 mg tablet 80 mg PO DAILY 03/03/23 09/21/23 History clopidogrel 75 mg tablet 75 mg PO DAILY 03/03/23 09/21/23 History empagliflozin 10 mg tablet 10 mg PO DAILY 03/03/23 09/21/23 History (Jardiance) glimepiride 2 mg tablet 2 mg PO BID 03/03/23 09/21/23 History metformin 1,000 mg tablet 1,000 mg PO BID 03/03/23 09/21/23 History metoprolol tartrate 100 mg tablet 50 mg PO Q12H 03/03/23 09/21/23 History nitroglycerin 0.4 mg sublingual 0.4 mg sublingual Q5M PRN chest 03/03/23 09/21/23 History tablet pain omeprazole 40 mg capsule,delayed 40 mg PO DAILY 03/03/23 09/21/23 History release pregabalin 200 mg capsule 200 mg PO TID 03/03/23 09/21/23 History sitagliptin phosphate 100 mg 100 mg PO DAILY 03/03/23 09/21/23 History tablet (Januvia) tamsulosin 0.4 mg capsule (Flomax) 0.4 mg PO BID 03/03/23 09/21/23 History valsartan 160 1 tab PO DAILY 03/03/23 09/21/23 History mg-hydrochlorothiazide 12.5 mg tablet amitriptyline 100 mg tablet 100 mg PO BEDTIME 03/04/23 09/21/23 History albuterol sulfate 90 mcg/actuation 2 inh inhalation Q4H PRN shortness 03/30/23 09/21/23 History aerosol inhaler (ProAir HFA) of breath or wheezing dulaglutide 1.5 mg/0.5 mL 1.5 mg subcut QWEEK 08/03/23 09/21/23 History subcutaneous pen injector (Trulicity) fremanezumab-vfrm 225 mg/1.5 mL 225 mg subcut .QMonth 08/03/23 09/21/23 History subcutaneous auto-injector (Ajovy) furosemide 40 mg tablet 40 mg PO DAILY 08/03/23 09/21/23 History isosorbide mononitrate 30 mg 30 mg PO DAILY 08/03/23 09/21/23 History tablet,extended release 24 hr rimegepant 75 mg disintegrating 75 mg PO DAILY 08/03/23 09/21/23 History tablet (Nurtec ODT) doxycycline monohydrate 100 mg 100 mg PO BID 14 days #28 caps 08/07/23 09/21/23 Rx capsule tramadol 50 mg tablet 50 mg PO Q6H PRN pain #28 tabs 08/07/23 09/21/23 Rx hydrocodone 5 mg-acetaminophen 325 1 tab PO Q6H PRN pain 7 days #28 08/18/23 09/21/23 Rx mg tablet tabs hydrocodone 5 mg-acetaminophen 325 1 tab PO Q8H PRN pain 7 days #21 08/29/23 09/21/23 Rx mg tablet tabs budesonide-formoterol HFA 160 2 inh inhalation Q12H 09/18/23 09/21/23 History mcg-4.5 mcg/actuation aerosol inhaler (Symbicort) ropinirole 1 mg tablet 1 mg PO TID 09/18/23 09/21/23 History sildenafil 100 mg tablet 100 mg PO Q24H PRN sexual activity 09/18/23 09/21/23 History tiotropium bromide 2.5 2 inh inhalation Q24H 09/18/23 09/21/23 History mcg/actuation mist for inhalation (Spiriva Respimat) tizanidine 4 mg tablet 4 mg PO DAILY 09/18/23 09/21/23 History doxycycline hyclate 100 mg capsule 100 mg PO BID 7 days #14 caps 09/21/23 Rx oxycodone-acetaminophen 5 mg-325 1 tab PO Q6H PRN pain 7 days #28 09/22/23 Rx mg tablet (Percocet) tabs Allergies Allergy/AdvReac Type Severity Reaction Status Date / Time Penicillins Allergy Severe Swelling Verified 09/18/23 08:25 of Lip/Tongue/Throat bee venom protein (honey bee) Allergy Swelling Verified 09/18/23 08:25 of Lip/Tongue/Throat latex Allergy Rash Verified 09/18/23 08:25 Exam Constitutional Vital Signs, click to edit/add: Last Vital Signs Temp 98.8 F 09/30/23 16:05 Pulse 90 09/30/23 18:00 Resp 18 04/27/24 18:00 BP 113/63 09/30/23 18:00 Pulse Ox 100 09/30/23 17:00 O2 Del Method Room Air 09/30/23 16:05 Documenting provider has reviewed patient's vital signs: yes Common normals: apparent distress (Slow to answer questions with moderate painful distress) Exam limitations: no altered mental status General appearance: not comfortable Chest Common normals: inspection of chest normal Respiratory Common normals: normal respiratory effort (Somewhat tachypneic) Cardio Common normals: regular rhythm; irregular rate Rate: tachycardic Extremity Common normals: abnormal to inspection (Large dressing on foot) Results Labs Labs: Short CBC 09/30/23 Range/Units 16:09 WBC 13.9 H (4.0-11.0) 10^3/uL Hgb 10.0 L (14.0-18.0) g/dL Hct 32.9 L (42.0-54.0) % Plt Count 227 (150-450) 10^3/uL BMP 09/30/23 16:09 Sodium 137 Potassium 3.9 Chloride 97 L Carbon Dioxide 18.3 L BUN 34.0 H Creatinine 3.43 H Glucose 208 H Calcium 5.8 L* Liver Function 09/30/23 Range/Units 16:09 Total Bilirubin 0.4 (0.2-1.0) mg/dL AST 21 (15-37) U/L ALT 17 (16-63) U/L Alkaline Phosphatase 145 H (46-116) U/L Albumin 2.4 L (3.4-5.0) g/dL Urine 09/30/23 Range/Units 17:10 Urine Color Lt. yellow (YELLOW) Urine Clarity Clear (CLEAR) Urine pH 5.5 (5.0-9.0) Ur Specific [place] <=1.005 A (1.005-1.025) Urine Protein Negative (NEG/TRACE) mg/dL Urine Glucose (UA) 500 A (NEGATIVE) mg/dL Assessment and Plan Assessment and Plan (1) Sepsis: (2) Wound of foot: Plan Sinus tachycardia, respiratory distress, significant hypotension with blood pressure 91/65, acute kidney failure, leukocytosis, elevated ESR, elevated CRP, elevated alkaline phosphatase uncontrolled diabetes mellitus secondary to foot abscess, resulting in severe sepsis. Reviewed cultures from previous surgery, he has 3 infections, Pseudomonas Enterobacter and strep. He did review what he was taking at home. Verbally reported his doxycycline and linezolid. Will go with clindamycin and levofloxacin based on patient's allergies, severe allergy to penicillin high risk for concurrent allergy to cephalosporins. Blood cultures pending. Serial labs in AM. Wrote for as needed Levophed in case blood pressure bottoms out again. So far improved after fluid boluses in ER Iron deficiency anemia-follow daily Poorly controlled diabetes mellitus-insulin sliding scale Severe hypomagnesemia-given supplementation IV in ER, will repeat in a.m. Coronary artery disease-he states that shortness of breath is somewhat similar to his heart trouble in the past but he has not had any chest pain like he has in the past. Will track and trend troponins. COPD-continue current treatment plan Hypertension-by history-will monitor closely, hold blood pressure medications currently Admission status: Patient placed in the intensive care unit due to severe hypotension, sepsis severe. Medically necessary treatment will span 2 midnights. Urinary Catheter Management Urinary Catheter Management Urethral: Cath placed during this visit: yes Urethral indwelling: No Insertion date: 09/30/23 Insertion time: 17:16
[2023-09-30 19:20] LABS: PCO2 VBG 29.6 mmHg (40.0-52.0); pH VBG 7.405 (7.330-7.430)
[2023-09-30] MEDS: LACTATED RINGER'S SOLUTION 1,000 ML 100 ML IV (19:41)
[2023-09-30] MEDS: TRAMADOL HCL 50 MG TABLET PO (19:42)
[2023-09-30 19:56] LABS: Lactate/Lactic Acid 3.1 mmol/L (0.4-2.0)
[2023-09-30] MEDS: IPRATROPIUM/ALBUTEROL SULFATE 3 ML AMPUL.NEB IH (20:33)
[2023-09-30] MEDS: BUDESONIDE 0.5 MG/2 ML AMPULE NEB IH (20:33)
[2023-09-30 20:57] LABS: Glucometer 99 mg/dL (74-106)
[2023-09-30] MEDS: TAMSULOSIN HCL 0.4 MG CAPSULE 0.400000000000000022 MG PO (21:25)
[2023-09-30] MEDS: ROPINIROLE HCL 1 MG TABLET PO (21:25)
[2023-09-30] MEDS: MAGNESIUM OXIDE 400 MG TABLET PO (21:25)
[2023-09-30] MEDS: AMITRIPTYLINE HCL 25 MG TABLET 100 MG PO (21:25)
[2023-09-30] MEDS: PREGABALIN 100 MG CAPSULE 200 MG PO (21:26)
[2023-09-30] MEDS: MORPHINE SULFATE 2 MG/ML SYRINGE IV (22:17)
[2023-09-30] MEDS: PANTOPRAZOLE SODIUM 40 MG VIAL IV (22:18)
[2023-09-30] MEDS: ENSURE HP 237 ML LIQUID PO (22:19)
[2023-09-30 23:13] LABS: Lactate/Lactic Acid 4.2 mmol/L (0.4-2.0)
[2023-09-30 23:19] LABS: Troponin I High Sensitivity 7.9 pg/mL (4.0-76.1)
[2023-10-01] VITALS (103 sets, daily range): BP systolic 91–146; BP diastolic 49–80; PULSE 91–155; TEMP 36.4–37; O2SAT 95–100
[2023-10-01] MEDS: CLINDAMYCIN PHOSPHATE/D5W 600 MG/50 ML PIGGYBACK 100 MG IV ×4 (00:33→17:39)
[2023-10-01] MEDS: MORPHINE SULFATE 2 MG/ML SYRINGE IV ×5 (02:25→19:57)
[2023-10-01] MEDS: IPRATROPIUM/ALBUTEROL SULFATE 3 ML AMPUL.NEB IH ×3 (04:52→20:21)
[2023-10-01 05:28] LABS: PCO2 VBG 30.4 mmHg (40.0-52.0); pH VBG 7.421 (7.330-7.430)
[2023-10-01] MEDS: PREGABALIN 100 MG CAPSULE 200 MG PO ×3 (05:39→21:43)
[2023-10-01] MEDS: ROPINIROLE HCL 1 MG TABLET PO ×3 (05:39→21:42)
[2023-10-01] MEDS: LACTATED RINGER'S SOLUTION 1,000 ML 100 ML IV ×2 (05:39→16:07)
[2023-10-01 05:44] LABS: Basophils Percent Auto 0.4 % (0.2-2.0); Eosinophils Absolute Auto 0.2 10^3/uL (0.0-0.7); Eosinophils Percent Auto 1.7 % (0.9-7.0); Hematocrit 26.5 % (42.0-54.0); Immature Granulocytes Abs Auto 0.06 10^3/uL (0.00-0.03); Immature Granulocytes Pct Auto 0.6 % (0.0-0.5); Lymphocytes Absolute Auto 1.3 10^3/uL (1.2-3.8); Lymphocytes Percent Auto 12.8 % (20.5-60.0); Mean Corpuscular HGB Conc 30.2 g/dL (29.9-35.2); Mean Corpuscular Hemoglobin 22.4 pg (25.9-34.0); Mean Corpuscular Volume 74.2 fL (80.0-94.0); Mean Platelet Volume 11.2 fL (9.5-13.5); Monocytes Absolute Auto 0.7 10^3/uL (0.3-0.8); Monocytes Percent Auto 6.9 % (1.7-12.0); Neutrophils Absolute Auto 7.8 10^3/uL (1.4-6.5); Neutrophils Percent Auto 77.6 % (43.0-75.0); Platelet Count 164 10^3/uL (150-450); Red Blood Count 3.57 10^6/uL (4.70-6.10); Red Cell Distribution Width 18.5 % (11.0-15.0)
[2023-10-01 05:51] LABS: Alanine Aminotransferase 17 U/L (16-63); Albumin Globulin Ratio 0.5; Albumin Level 1.9 g/dL (3.4-5.0); Alkaline Phosphatase 113 U/L (46-116); Anion Gap 18.7; Aspartate Amino Transferase 14 U/L (15-37); BUN Creatinine Ratio 11.4; Bilirubin Total 0.3 mg/dL (0.2-1.0); C Reactive Protein 10.58 mg/dL (<=0.50); Carbon Dioxide 20.4 mmol/L (21.0-32.0); Chloride 102 mmol/L (98-107); Estimated GFR (African America 33 (>=60); Estimated GFR (Non-African Ame 27 (>=60); Glucose 67 mg/dL (74-106); Potassium 3.1 mmol/L (3.5-5.1); Sodium 138 mmol/L (136-145); Total Protein 5.9 g/dL (6.4-8.2)
[2023-10-01 05:54] LABS: Troponin I High Sensitivity 8.3 pg/mL (4.0-76.1)
[2023-10-01 06:03] LABS: Magnesium 0.8 mg/dL (1.8-2.4)
[2023-10-01 06:19] LABS: Calcium 5.7 mg/dL (8.5-10.1)
[2023-10-01 06:37] LABS: Erythrocyte Sedimentation Rate 96 mm/hr (<=20)
[2023-10-01 07:37] LABS: Glucometer 113 mg/dL (74-106)
[2023-10-01] MEDS: POTASSIUM CHLORIDE 40 MEQ in 0.9 % SODIUM CHLORIDE 250 ML 67.5 MEQ IV (08:11)
[2023-10-01] MEDS: POTASSIUM CHLORIDE 10 MEQ ER TABLET 20 MEQ PO ×2 (08:12→20:12)
[2023-10-01] MEDS: MAGNESIUM OXIDE 400 MG TABLET PO ×2 (08:12→20:11)
[2023-10-01] MEDS: ATORVASTATIN CALCIUM 40 MG TABLET 80 MG PO (08:12)
[2023-10-01] MEDS: ENSURE HP 237 ML LIQUID PO ×2 (08:12→20:08)
[2023-10-01] MEDS: CLOPIDOGREL BISULFATE 75 MG TABLET PO (08:13)
[2023-10-01] MEDS: TRAMADOL HCL 50 MG TABLET PO ×2 (08:13→17:49)
[2023-10-01] MEDS: TIZANIDINE HCL 4 MG TABLET PO (08:13)
[2023-10-01] MEDS: PROSTAT 15 GM PROTEIN/100 CAL 30 ML LIQUID PACKET PO ×2 (08:14→20:08)
[2023-10-01] MEDS: MAGNESIUM SULFATE IN WATER 4 GM/100 ML PIGGYBACK IV (08:14)
[2023-10-01] MEDS: ASPIRIN 81 MG TABLET.DR PO (08:14)
[2023-10-01] MEDS: TAMSULOSIN HCL 0.4 MG CAPSULE 0.400000000000000022 MG PO ×2 (08:14→20:12)
[2023-10-01 08:18] LABS: Lactate/Lactic Acid 1.8 mmol/L (0.4-2.0)
[2023-10-01] MEDS: JUVEN PACKET 1 PACKET PO ×2 (08:36→20:08)
--- NOTE | 2023-10-01 09:58 | P.PN_ITS ---
Progress Note: Subjective Subjective Interval history: Patient still looks lethargic. He does answer questions appropriately. Currently blood pressure is low Exam Constitutional Vital Signs, click to edit/add: Last Vital Signs Temp 97.6 F 09/30/23 23:39 Pulse 98 H 10/01/23 08:00 Resp 20 10/01/23 08:00 BP 107/60 10/01/23 00:19 Pulse Ox 98 10/01/23 04:52 O2 Del Method Room Air 10/01/23 04:52 Documenting provider has reviewed patient's vital signs: yes Common normals: apparent distress (Slow to answer questions with mild painful distress) Exam limitations: no altered mental status General appearance: not comfortable Chest Common normals: inspection of chest normal Respiratory Common normals: normal respiratory effort (Somewhat tachypneic), no use of ac cessory muscles and clear to auscultation bilaterally Cardio Common normals: regular rate and regular rhythm Extremity Common normals: no clubbing, cyanosis or edema; abnormal to inspection (Large dressing on foot) Progress Note: Objective Labs Labs: Short CBC 09/30/23 10/01/23 Range/Units 16:09 04:24 WBC 13.9 H 10.0 (4.0-11.0) 10^3/uL Hgb 10.0 L 8.0 L (14.0-18.0) g/dL Hct 32.9 L 26.5 L (42.0-54.0) % Plt Count 227 164 (150-450) 10^3/uL BMP 09/30/23 10/01/23 16:09 04:24 Sodium 137 138 Potassium 3.9 3.1 L Chloride 97 L 102 Carbon Dioxide 18.3 L 20.4 L BUN 34.0 H 28.0 H Creatinine 3.43 H 2.46 H Glucose 208 H 67 L Calcium 5.8 L* 5.7 L* Liver Function 09/30/23 10/01/23 Range/Units 16:09 04:24 Total Bilirubin 0.4 0.3 (0.2-1.0) mg/dL AST 21 14 L (15-37) U/L ALT 17 17 (16-63) U/L Alkaline Phosphatase 145 H 113 (46-116) U/L Albumin 2.4 L 1.9 L (3.4-5.0) g/dL Urine 09/30/23 Range/Units 17:10 Urine Color Lt. yellow (YELLOW) Urine Clarity Clear (CLEAR) Urine pH 5.5 (5.0-9.0) Ur Specific [place] <=1.005 A (1.005-1.025) Urine Protein Negative (NEG/TRACE) mg/dL Urine Glucose (UA) 500 A (NEGATIVE) mg/dL Progress Note: A&P Assessment and Plan (1) Sepsis: (2) Wound of foot: Plan Admission findings: Sinus tachycardia, respiratory distress, significant h ypotension with blood pressure 91/65, acute kidney failure, leukocytosis, elevated ESR, elevated CRP, elevated alkaline phosphatase uncontrolled diabetes mellitus secondary to foot abscess, resulting in severe sepsis. Reviewed cultures from previous surgery, he has 3 infections, Pseudomonas, Enterobacter and strep. He did review what he was taking at home. Verbally reported his doxycycline and linezolid. Will go with clindamycin and levofloxacin based on patient's allergies, severe allergy to penicillin high risk for concurrent allergy to cephalosporins. Blood cultures pending. White blood cell count is improving. Blood pressure still significantly low. Although his lactic acidosis has resolved, will repeat fluid bolus again today. No signs of fluid overload currently. Discussed case with podiatry Acute renal failure-baseline creatinine of 1.69, 3.43 on admission and to be 2 times baseline. Continue with fluid resuscitation as aligned above Hypokalemia-supplement and monitor daily needs IV dose today. Iron deficiency anemia-follow daily-Down today further, check occult blood Poorly controlled diabetes mellitus-continue with insulin sliding scale Severe hypomagnesemia-given supplementation IV in ER, will repeat bolus again today Coronary artery disease-he states that shortness of breath is somewhat similar to his heart trouble in the past but he has not had any chest pain like he has in the past. No further symptoms COPD-continue current treatment plan Hypertension-by history-will monitor closely, hold blood pressure medications currently Admission status: Patient placed in the intensive care unit due to severe hypotension, sepsis severe. Medically necessary treatment will span 2 midnights. Urinary Catheter Management Urinary Catheter Management Urethral: Cath placed during this visit: yes Urethral indwelling: No Insertion date: 09/30/23 Insertion time: 17:16
[2023-10-01] MEDS: BUDESONIDE 0.5 MG/2 ML AMPULE NEB IH ×2 (10:08→20:20)
[2023-10-01] MEDS: NICOTINE 21 MG PATCH.TD24 TD (10:20)
[2023-10-01] MEDS: 0.9 % SODIUM CHLORIDE 1,000 ML 500 ML IV ×2 (10:20→12:31)
--- NOTE | 2023-10-01 10:34 | PM.CN ---
Consult Note: [facility] Data of Consult Consult date: 10/01/23 Requesting Physician: Truman Bryant MD Primary Care Provider: Jenaro Valadez DO Consult Narrative Reason for consult: right foot infection, sepsis Narrative: patient is a 58-year-old male with type 2 diabetes with peripheral neuropathy and foot ulcer secondary to puncture. Proximally ten days ago he underwent operative debridement and allogenic skin substitute. according to the he began feeling ill proximally two days ago but refused to go to the emergency department at that time. He presented to the emergency department yesterday with hypotension and pain to his right foot. Laboratories and clinical findings are consistent with sepsis. He was admitted to the ICU. At bedside patient is having pain but somewhat improved to his right foot. He is able to wiggle his toes. he denies fever but relates to anorexia and nausea. Denies calf pain, shortness of breath and chest pain cc:: CC: Truman Bryant MD Review of Systems ROS Status of ROS 10 or more systems reviewed and unremarkable except as noted in history and below Constitutional Reports: fatigue and malaise Gastrointestinal Reports: nausea Musculoskeletal Reports: other (plantar right foot pain) [facility] Medical History (Updated 10/01/23 @ 10:42 by Fredy Elias DPM) Abscess of right foot ?L02.611 - Cutaneous abscess of right foot (ICD-10) Chronic ulcer of right foot ?L97.519 - Non-pressure chronic ulcer of other part of right foot with unspecified severity (ICD-10) Anticoagulated ?Z79.01 - senior living (current) use of anticoagulants (ICD-10) Diabetic infection of right foot ?E11.628 - Type 2 diabetes mellitus with other skin complications (ICD-10) ?L08.9 - Local infection of the skin and subcutaneous tissue, unspecified (ICD-10) Puncture wound of right foot ?S91.331A - Puncture wound without foreign body, right foot, initial encounter (ICD-10) Cellulitis of foot, right ?L03.115 - Cellulitis of right lower limb (ICD-10) ROEL (acute kidney injury) ?N17.9 - Acute kidney failure, unspecified (ICD-10) Sepsis ?A41.9 - Sepsis, unspecified organism (ICD-10) CHF (congestive heart failure) ?I50.9 - Heart failure, unspecified (ICD-10) Migraine headache ?G43.909 - Migraine, unspecified, not intractable, without status migrainosus (ICD-10) Tobacco abuse ?Z72.0 - Tobacco use (ICD-10) DM2 (diabetes mellitus, type 2) ?E11.9 - Type 2 diabetes mellitus without complications (ICD-10) Carpal tunnel syndrome ?G56.00 - Carpal tunnel syndrome, unspecified upper limb (ICD-10) Back pain ?M54.9 - Dorsalgia, unspecified (ICD-10) Arthritis ?M19.90 - Unspecified osteoarthritis, unspecified site (ICD-10) Restless leg ?G25.81 - Restless legs syndrome (ICD-10) GERD (gastroesophageal reflux disease) ?K21.9 - Gastro-esophageal reflux disease without esophagitis (ICD-10) High cholesterol ?E78.00 - Pure hypercholesterolemia, unspecified (ICD-10) Myocardial infarction ?I21.9 - Acute myocardial infarction, unspecified (ICD-10) Coronary artery disease ?I25.10 - Atherosclerotic heart disease of [place] coronary artery without angina pectoris (ICD-10) BPH with obstruction/lower urinary tract symptoms ?N40.1 - Benign prostatic hyperplasia with lower urinary tract symptoms (ICD-10) ?N13.8 - Other obstructive and reflux uropathy (ICD-10) Dementia ?F03.90 - Unspecified dementia, unspecified severity, without behavioral disturbance, psychotic disturbance, mood disturbance, and anxiety (ICD-10) CKD stage 4 due to type 2 diabetes mellitus ?E11.22 - Type 2 diabetes mellitus with diabetic chronic kidney disease (ICD-10) ?N18.4 - Chronic kidney disease, stage 4 (severe) (ICD-10) Hyperlipidemia ?E78.5 - Hyperlipidemia, unspecified (ICD-10) Polyp of prostate with urinary obstruction ?N40.1 - Benign prostatic hyperplasia with lower urinary tract symptoms (ICD-10) ?N13.8 - Other obstructive and reflux uropathy (ICD-10) Femoral artery stenosis ?I70.209 - Unspecified atherosclerosis of [place] arteries of extremities, unspecified extremity (ICD-10) Glaucoma ?H40.9 - Unspecified glaucoma (ICD-10) Carpal tunnel syndrome, bilateral ?G56.03 - Carpal tunnel syndrome, bilateral upper limbs (ICD-10) Gout ?M10.9 - Gout, unspecified (ICD-10) COPD (chronic obstructive pulmonary disease) ?J44.9 - Chronic obstructive pulmonary disease, unspecified (ICD-10) Neuropathy ?G62.9 - Polyneuropathy, unspecified (ICD-10) Chronic kidney disease ?N18.9 - Chronic kidney disease, unspecified (ICD-10) Hypertension ?I10 - Essential (primary) hypertension (ICD-10) Weakness ?R53.1 - Weakness (ICD-10) Surgical History (Updated 09/15/23 @ 10:12 by Shana George NP) H/O foot surgery (08/10/23) ?Z98.890 - Other specified postprocedural states (ICD-10) S/P TURP (04/13/23) ?Z90.79 - Acquired absence of other genital organ(s) (ICD-10) H/O foot surgery (08/05/23) ?Z98.890 - Other specified postprocedural states (ICD-10) History of heart artery stent ?Z95.5 - Presence of coronary angioplasty implant and graft (ICD-10) History of spinal surgery ?Z98.890 - Other specified postprocedural states (ICD-10) History of colonoscopy ?Z98.890 - Other specified postprocedural states (ICD-10) History of carpal tunnel release ?Z98.890 - Other specified postprocedural states (ICD-10) History of cataract extraction ?Z98.49 - Cataract extraction status, unspecified eye (ICD-10) History of appendectomy ?Z90.49 - Acquired absence of other specified parts of digestive tract (ICD-10) History of heart artery stent ?Z95.5 - Presence of coronary angioplasty implant and graft (ICD-10) Family History (Updated 03/03/23 @ 18:46 by Darling Sharma RN) Mother Family history of CHF (congestive heart failure) Family history of diabetes mellitus Family history of hypertension Grandfather Family history of CHF (congestive heart failure) Family history of diabetes mellitus Family history of hypertension Family history of myocardial infarction Grandmother Family history of hypertension Social History (Updated 08/10/23 @ 09:23 by Mariely Fox) Within the past year, how often did you have a drink containing alcohol: never Score interpretation: A score less than 4 is consistent with normal alcohol consumption. Smoking status: Current every day smoker What tobacco products do you use: cigarettes Cigarettes per day: 20 Years smoked: 42 Smoking pack-years: 42.00 Non-prescribed substance use: denies use Previous occupational history: DISABLED Highest level of school completed/degree received: don't know Gender Identity: male Meds Home Medications and Allergies Home Medications ?Medication ?Instructions ?Recorded ?Confirmed ?Type aspirin 81 mg tablet,delayed 81 mg PO DAILY 03/03/23 10/01/23 History release atorvastatin 80 mg tablet 80 mg PO DAILY 03/03/23 10/01/23 History clopidogrel 75 mg tablet 75 mg PO DAILY 03/03/23 10/01/23 History empagliflozin 10 mg tablet 10 mg PO DAILY 03/03/23 10/01/23 History (Jardiance) glimepiride 2 mg tablet 2 mg PO BID 03/03/23 10/01/23 History metformin 1,000 mg tablet 1,000 mg PO BID 03/03/23 10/01/23 History metoprolol tartrate 100 mg tablet 50 mg PO Q12H 03/03/23 10/01/23 History nitroglycerin 0.4 mg sublingual 0.4 mg sublingual Q5M PRN chest 03/03/23 10/01/23 History tablet pain omeprazole 40 mg capsule,delayed 40 mg PO DAILY 03/03/23 10/01/23 History release pregabalin 200 mg capsule 200 mg PO TID 03/03/23 10/01/23 History sitagliptin phosphate 100 mg 100 mg PO DAILY 03/03/23 10/01/23 History tablet (Januvia) tamsulosin 0.4 mg capsule (Flomax) 0.4 mg PO BID 03/03/23 10/01/23 History valsartan 160 1 tab PO DAILY 03/03/23 10/01/23 History mg-hydrochlorothiazide 12.5 mg tablet amitriptyline 100 mg tablet 100 mg PO BEDTIME 03/04/23 10/01/23 History albuterol sulfate 90 mcg/actuation 2 inh inhalation Q4H PRN shortness 03/30/23 10/01/23 History aerosol inhaler (ProAir HFA) of breath or wheezing dulaglutide 1.5 mg/0.5 mL 1.5 mg subcut QWEEK 08/03/23 10/01/23 History subcutaneous pen injector (Trulicity) fremanezumab-vfrm 225 mg/1.5 mL 225 mg subcut .QMonth 08/03/23 10/01/23 History subcutaneous auto-injector (Ajovy) furosemide 40 mg tablet 40 mg PO DAILY 08/03/23 10/01/23 History isosorbide mononitrate 30 mg 30 mg PO DAILY 08/03/23 10/01/23 History tablet,extended release 24 hr rimegepant 75 mg disintegrating 75 mg PO DAILY 08/03/23 10/01/23 History tablet (Nurtec ODT) doxycycline monohydrate 100 mg 100 mg PO BID 14 days #28 caps 08/07/23 10/01/23 Rx capsule tramadol 50 mg tablet 50 mg PO Q6H PRN pain #28 tabs 08/07/23 10/01/23 Rx hydrocodone 5 mg-acetaminophen 325 1 tab PO Q6H PRN pain 7 days #28 08/18/23 10/01/23 Rx mg tablet tabs hydrocodone 5 mg-acetaminophen 325 1 tab PO Q8H PRN pain 7 days #21 08/29/23 10/01/23 Rx mg tablet tabs budesonide-formoterol HFA 160 2 inh inhalation Q12H 09/18/23 10/01/23 History mcg-4.5 mcg/actuation aerosol inhaler (Symbicort) ropinirole 1 mg tablet 1 mg PO TID 09/18/23 10/01/23 History sildenafil 100 mg tablet 100 mg PO Q24H PRN sexual activity 09/18/23 10/01/23 History tiotropium bromide 2.5 2 inh inhalation Q24H 09/18/23 10/01/23 History mcg/actuation mist for inhalation (Spiriva Respimat) tizanidine 4 mg tablet 4 mg PO DAILY 09/18/23 10/01/23 History doxycycline hyclate 100 mg capsule 100 mg PO BID 7 days #14 caps 09/21/23 10/01/23 Rx oxycodone-acetaminophen 5 mg-325 1 tab PO Q6H PRN pain 7 days #28 09/22/23 10/01/23 Rx mg tablet (Percocet) tabs Allergies Allergy/AdvReac Type Severity Reaction Status Date / Time Penicillins Allergy Severe Swelling Verified 09/18/23 08:25 of Lip/Tongue/Throat bee venom protein (honey bee) Allergy Swelling Verified 09/18/23 08:25 of Lip/Tongue/Throat latex Allergy Rash Verified 09/18/23 08:25 Exam Narrative Exam Narrative: skin: Large deep wound noted on plantar medial aspect of the right foot. Approximately 1 cm surrounding erythema with no purulent drainage. Wound base is fibrin granular and does probe to the 1st metatarsal neuro: Absent protective sensation. No pain out of proportion. Compartments are soft and compressible Vascular: Absent digital hair growth. Mild right foot swelling. Dorsalis pedis and posterior tibial pulses are faintly palpable. No calf pain on squeeze MSK: POP plantar medial right foot. Patient is able wiggle his toes. Rigid lesser toe contractures noted Constitutional Vital Signs, click to edit/add: Last Vital Signs Temp 97.6 F 09/30/23 23:39 Pulse 95 H 10/01/23 10:09 Resp 18 10/01/23 10:09 BP 107/60 10/01/23 00:19 Pulse Ox 99 10/01/23 10:09 O2 Del Method Room Air 10/01/23 10:09 Results Labs Labs: Short CBC 09/30/23 10/01/23 Range/Units 16:09 04: WBC 13.9 H 10.0 (4.0-11.0) 10^3/uL Hgb 10.0 L 8.0 L (14.0-18.0) g/dL Hct 32.9 L 26.5 L (42.0-54.0) % Plt Count 227 164 (150-450) 10^3/uL BMP 09/30/23 10/01/23 16:09 04: Sodium 137 138 Potassium 3.9 3.1 L Chloride 97 L 102 Carbon Dioxide 18.3 L 20.4 L BUN 34.0 H 28.0 H Creatinine 3.43 H 2.46 H Glucose 208 H 67 L Calcium 5.8 L* 5.7 L* Liver Function 09/30/23 10/01/23 Range/Units 16:09 04:24 Total Bilirubin 0.4 0.3 (0.2-1.0) mg/dL AST 21 14 L (15-37) U/L ALT 17 17 (16-63) U/L Alkaline Phosphatase 145 H 113 (46-116) U/L Albumin 2.4 L 1.9 L (3.4-5.0) g/dL Urine 09/30/23 Range/Units 17:10 Urine Color Lt. yellow (YELLOW) Urine Clarity Clear (CLEAR) Urine pH 5.5 (5.0-9.0) Ur Specific [place] <=1.005 A (1.005-1.025) Urine Protein Negative (NEG/TRACE) mg/dL Urine Glucose (UA) 500 A (NEGATIVE) mg/dL ABG ABG results: 09/30/23 10/01/23 19:14 04:24 VBG pH 7.405 7.421 VBG pCO2 29.6 L 30.4 L Assessment and Plan Assessment and Plan (1) Sepsis: (2) Wound of foot: (3) Acute osteomyelitis of right foot: Assessment and Plan: despite antibiotics at home patient returns with recurrent infection. I agree with Dr. Bryant's antibiotic selection at this time. It must be assumed that the right foot is the source of his systemic infection Therefore recommended surgical intervention I discussed with the patient and the risks and benefits of continued limb salvage versus midfoot amputation. Now that this infection is become life threatening they agree that midfoot amputation may be best (4) Ulcer of right foot with necrosis of bone: Plan patient seen and evaluated. Patient education provided and all questions answered to satisfaction Plan for I and D with possible midfoot amputation tomorrow. Nothing by mouth after midnight Continue broad-spectrum antibiotics Dr. Bryant notified
[2023-10-01 11:24] LABS: Glucometer 237 mg/dL (74-106)
[2023-10-01] MEDS: INSULIN ASPART 300 UNIT/3 ML PEN SUBQ ×3 (11:30→21:49)
--- NOTE | 2023-10-01 12:44 | ECG_ITS ---
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
[2023-10-01] MEDS: ALBUTEROL SULFATE 2.5 MG/3 ML VIAL NEB IH (14:34)
[2023-10-01 16:15] LABS: Glucometer 294 mg/dL (74-106)
[2023-10-01] MEDS: PANTOPRAZOLE SODIUM 40 MG VIAL IV (20:06)
[2023-10-01] MEDS: AMITRIPTYLINE HCL 25 MG TABLET 100 MG PO (21:42)
[2023-10-01] MEDS: HYDROCODONE/ACET 5-325 MG TABLET 2 TAB PO (21:43)
[2023-10-01 21:49] LABS: Glucometer 281 mg/dL (74-106)
[2023-10-02] VITALS (38 sets, daily range): BP systolic 105–132; BP diastolic 64–75; PULSE 80–110; TEMP 36.6; O2SAT 94–100
[2023-10-02] MEDS: TRAMADOL HCL 50 MG TABLET PO ×2 (00:04→22:10)
[2023-10-02] MEDS: CLINDAMYCIN PHOSPHATE/D5W 600 MG/50 ML PIGGYBACK 100 MG IV ×4 (00:04→18:15)
[2023-10-02] MEDS: MORPHINE SULFATE 2 MG/ML SYRINGE IV ×4 (00:05→22:11)
[2023-10-02] MEDS: LACTATED RINGER'S SOLUTION 1,000 ML 100 ML IV ×2 (03:01→14:44)
[2023-10-02] MEDS: HYDROCODONE/ACET 5-325 MG TABLET 2 TAB PO ×2 (04:23→20:46)
[2023-10-02 04:47] LABS: Basophils Percent Auto 0.4 % (0.2-2.0); Eosinophils Absolute Auto 0.2 10^3/uL (0.0-0.7); Hematocrit 25.6 % (42.0-54.0); Hemoglobin 7.9 g/dL (14.0-18.0); Immature Granulocytes Abs Auto 0.05 10^3/uL (0.00-0.03); Immature Granulocytes Pct Auto 0.5 % (0.0-0.5); Lymphocytes Absolute Auto 1.3 10^3/uL (1.2-3.8); Lymphocytes Percent Auto 13.2 % (20.5-60.0); Mean Corpuscular HGB Conc 30.9 g/dL (29.9-35.2); Mean Corpuscular Volume 74.4 fL (80.0-94.0); Mean Platelet Volume 11.1 fL (9.5-13.5); Monocytes Absolute Auto 0.9 10^3/uL (0.3-0.8); Monocytes Percent Auto 9.1 % (1.7-12.0); Neutrophils Absolute Auto 7.3 10^3/uL (1.4-6.5); Neutrophils Percent Auto 74.8 % (43.0-75.0); Platelet Count 155 10^3/uL (150-450); Red Blood Count 3.44 10^6/uL (4.70-6.10); Red Cell Distribution Width 18.8 % (11.0-15.0); White Blood Count 9.7 10^3/uL (4.0-11.0)
[2023-10-02 04:58] LABS: Erythrocyte Sedimentation Rate 110 mm/hr (<=20)
[2023-10-02 05:05] LABS: Magnesium 1.5 mg/dL (1.8-2.4)
[2023-10-02 05:16] LABS: Alanine Aminotransferase 17 U/L (16-63); Albumin Globulin Ratio 0.5; Albumin Level 2.1 g/dL (3.4-5.0); Alkaline Phosphatase 131 U/L (46-116); Anion Gap 13.7; Aspartate Amino Transferase 13 U/L (15-37); BUN Creatinine Ratio 15.7; Bilirubin Total 0.3 mg/dL (0.2-1.0); Calcium 6.6 mg/dL (8.5-10.1); Carbon Dioxide 24.3 mmol/L (21.0-32.0); Chloride 105 mmol/L (98-107); Estimated GFR (African America 50 (>=60); Estimated GFR (Non-African Ame 41 (>=60); Globulin 4.2 g/dL; Glucose 156 mg/dL (74-106); Sodium 139 mmol/L (136-145); Total Protein 6.3 g/dL (6.4-8.2)
[2023-10-02] MEDS: IPRATROPIUM/ALBUTEROL SULFATE 3 ML AMPUL.NEB IH ×4 (05:17→20:07)
[2023-10-02] MEDS: PREGABALIN 100 MG CAPSULE 200 MG PO ×3 (06:18→21:17)
[2023-10-02] MEDS: ROPINIROLE HCL 1 MG TABLET PO ×3 (06:18→22:10)
[2023-10-02 07:53] LABS: Glucometer 172 mg/dL (74-106)
[2023-10-02] MEDS: MAGNESIUM OXIDE 400 MG TABLET PO ×2 (07:53→21:17)
--- NOTE | 2023-10-02 07:56 | CM.NOTE ---
Rounds made with Dr. Bryant, pt will go to OR this afternoon with Dr. Elias. PT will evaluate after OR.
--- NOTE | 2023-10-02 08:03 | P.PN_ITS ---
Progress Note: Subjective Subjective Interval history: Patient little more energetic this morning. No new complaints. Pain better controlled with hydrocodone. Patient denies dyspnea or cough. Exam Constitutional Vital Signs, click to edit/add: Last Vital Signs Temp 97.8 F 10/02/23 07:30 Pulse 93 H 10/02/23 07:30 Resp 22 H 10/02/23 07:30 BP 116/68 10/02/23 07:18 Pulse Ox 97 10/02/23 07:30 O2 Del Method Room Air 10/02/23 07:30 Documenting provider has reviewed patient's vital signs: yes Common normals: no apparent distress Exam limitations: no altered mental status General appearance: comfortable Chest Common normals: inspection of chest normal Respiratory Common normals: normal respiratory effort (Somewhat tachypneic), no use of accessory muscles and clear to auscultation bilaterally Cardio Common normals: regular rate and regular rhythm Extremity Common normals: no clubbing, cyanosis or edema; abnormal to inspection (Large dressing on foot) Progress Note: Objective Labs Labs: Short CBC 10/02/23 Range/Units 04:08 WBC 9.7 (4.0-11.0) 10^3/uL Hgb 7.9 L (14.0-18.0) g/dL Hct 25.6 L (42.0-54.0) % Plt Count 155 (150-450) 10^3/uL BMP 10/02/23 04:08 Sodium 139 Potassium 4.0 Chloride 105 Carbon Dioxide 24.3 BUN 27.0 H Creatinine 1.72 H Glucose 156 H Calcium 6.6 L Liver Function 10/02/23 Range/Units 04:08 Total Bilirubin 0.3 (0.2-1.0) mg/dL AST 13 L (15-37) U/L ALT 17 (16-63) U/L Alkaline Phosphatase 131 H (46-116) U/L Albumin 2.1 L (3.4-5.0) g/dL Progress Note: A&P Assessment and Plan (1) Sepsis: (2) Wound of foot: (3) Acute osteomyelitis of right foot: (4) Ulcer of right foot with necrosis of bone: Plan Admission findings: Sinus tachycardia, respiratory distress, significant hypot ension with blood pressure 91/65, acute kidney failure, leukocytosis, elevated ESR, elevated CRP, elevated alkaline phosphatase uncontrolled diabetes mellitus secondary to foot abscess, resulting in severe sepsis. Reviewed cultures from previous surgery, he has 3 infections, Pseudomonas, Enterobacter and strep. We did review what he was taking at home. Verbally reported his doxycycline and linezolid. Will go with clindamycin and levofloxacin based on patient's allergies, severe allergy to penicillin high risk for concurrent allergy to cephalosporins. Case discussed with podiatry, continue with current antibiotics, blood cultures and wound culture from admission are pending. Further surgical debridement versus possible amputation later today. Acute renal failure-baseline creatinine of 1.69, 3.43 on admission and to be 2 times baseline. Continue with low-level fluids. Concern for rales yesterday. His lungs are clear today. Creatinine is return to baseline-saline lock after surgery Hypokalemia-improved Iron deficiency anemia-follow daily-down slightly today. Poorly controlled diabetes mellitus-continue with insulin sliding scale Severe hypomagnesemia-improving Coronary artery disease-he states that shortness of breath is somewhat similar to his heart trouble in the past but he has not had any chest pain like he has in the past. No further symptoms COPD-continue current treatment plan Hypertension-by history-will monitor closely, hold blood pressure medications currently Severe protein, nutrition-diet management and supplementation Admission status: Patient placed in the intensive care unit due to severe hypotension, sepsis severe. Medically necessary treatment will span 2 midnights. Urinary Catheter Management Urinary Catheter Management Urethral: Cath placed during this visit: yes Urethral indwelling: No Insertion date: 09/30/23 Insertion time: 17:16
[2023-10-02] MEDS: TIZANIDINE HCL 4 MG TABLET PO (09:12)
[2023-10-02] MEDS: BUDESONIDE 0.5 MG/2 ML AMPULE NEB IH ×2 (10:22→20:07)
[2023-10-02 11:33] LABS: Glucometer 198 mg/dL (74-106)
--- NOTE | 2023-10-02 11:47 | PM.ORONB ---
Brief Operative Note Date of procedure: 10/02/23 Pre-op diagnosis general: right foot ulcer with bone necrosis, acute osteomyelitis, sepsis Post-op diagnosis: same as pre-op Procedure: PROCEDURES PERFORMED: right partial 1st ray amputation as part of staged procedure, application of short leg splint INDICATION FOR PROCEDURE: patient is a 58-year-old female well known to my practice who was admitted two days ago and was found to be septic. He's been on broad-spectrum antibiotics and has shown some sign of improvement however given the seriousness of his infection I recommended operative debridement of all infected soft tissue and bone. Patient understands that this is a life and limb threatening issue. All questions were answered to satisfaction and consent was obtained. INTRAOPERATIVE FINDINGS: 4.0 x 3.8 cm ulceration sub-1st metatarsal head. no saleem purulence but necrotic tissue noted on the plantar medial aspect of the distal medial forefoot. Exposed 1st metatarsal head which was guillory in color and soft consistent with acute osteomyelitis. Osteotomy performed through the shaft of the 1st metatarsal which had normal bone color and quality. PROCEDURES IN DETAIL: Patient was identified in pre op and consent was reviewed. Correct side and site were identified and marked. Pre-op antibiotics were started. Patient was brought to OR suite and place on table in a supine position. General anesthesia was administered. Tourniquet applied. Operative extremity was prepped and draped in usual sterile fashion. Formal time-out was performed and the foot/ankle were exsanguinated and tourniquet inflated. A fishmouth incision was placed over the medial forefoot foot. Sharp dissection down to bone was performed. An elevator was used to raised full-thickness flap dorsally. Then a sagittal saw was used to perform osteotomy of the 1st metatarsal. then combination sharp and blunt dissection allowed the partial 1st distal metatarsal to be amputated and passed back table for specimen. then the incision was carried distally over the medial great toe which is taken around the nail plate. The nail plate and bed was excised and the proximal distal phalanx of the great toe were sharply dissected out and removed preserving as much skin as possible for later closure and to ensure the toe flap remains viable. The tourniquet was deflated and reperfusion was sluggish. Surgical site was irrigated with 3 L normal saline. Outer gloves were removed and a clean rongeur was used to obtain a proximal/clean bone culture from the 1st metatarsal shaft. several retention sutures were placed for hemostasis. the incision was then packed open with Betadine soaked gauze A dry sterile dressing was placed on the surgical site with 4 x 4 gauze, ABDs, and Kerlix were applied. Multiple layers of cast padding were then applied to ensure all bony prominences were well-padded. A plaster posterior splint was then applied which was held in place by Omero wraps. Patient tolerated the procedure and anesthesia well and was transported to the recovery room with vital signs stable. 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
[2023-10-02] MEDS: LIDOCAINE HCL 1% 100 MG/10 ML MDV INJ (12:14)
--- NOTE | 2023-10-02 12:46 | XR_ITS ---
[address] [address] Patient Name: MYRA FELIPE MRN: [id number] date: 1965 Sex: M Assigned Patient Location: ICU Current Patient Location: ICU Accession/Order Number: [id number] Exam Date: 10/02/2023 13:20 Report Date: 10/03/2023 07:14 At the request of: PAULA SOTO Procedure: XR foot RT min 3V PROCEDURE: XR foot RT min 3V COMPARISON: HISTORY: osteotmyelitis 1st metatarsal FINDINGS: BONES:Interval resection of the first toe along the mid diaphysis of the first metatarsal. No acute fracture or dislocation. Enthesopathic spurring of the calcaneus SOFT TISSUES:Postsurgical soft tissue swelling and subcutaneous air EFFUSION:None visible. OTHER: Negative. XR/XR foot RT min 3V IMPRESSION: Interval amputation of the first digit along the mid first metatarsal diaphysis Electronically authenticated by: EVAN HODGES Date: 10/03/2023 07:14
--- NOTE | 2023-10-02 13:36 | PC.NURSE ---
infrequent moist cough noted
--- NOTE | 2023-10-02 13:59 | PC.NURSE ---
Patient returned from surgery. Was able to participate in assessment. During swallow evaluation, patient was noted to start coughing and was able to expectorate blood clots. Will notify physician and continue to monitor patient.
[2023-10-02 14:40] LABS: Glucometer 244 mg/dL (74-106)
[2023-10-02] MEDS: INSULIN ASPART 300 UNIT/3 ML PEN SUBQ ×2 (14:46→21:03)
[2023-10-02 16:56] LABS: Glucometer 231 mg/dL (74-106)
[2023-10-02 17:07] LABS: Basophils Percent Auto 0.4 % (0.2-2.0); Eosinophils Absolute Auto 0.2 10^3/uL (0.0-0.7); Eosinophils Percent Auto 2.2 % (0.9-7.0); Hematocrit 26.1 % (42.0-54.0); Hemoglobin 7.8 g/dL (14.0-18.0); Immature Granulocytes Abs Auto 0.03 10^3/uL (0.00-0.03); Immature Granulocytes Pct Auto 0.4 % (0.0-0.5); Lymphocytes Absolute Auto 1.5 10^3/uL (1.2-3.8); Lymphocytes Percent Auto 17.3 % (20.5-60.0); Mean Corpuscular HGB Conc 29.9 g/dL (29.9-35.2); Mean Corpuscular Hemoglobin 22.5 pg (25.9-34.0); Mean Corpuscular Volume 75.2 fL (80.0-94.0); Mean Platelet Volume 10.6 fL (9.5-13.5); Monocytes Absolute Auto 0.8 10^3/uL (0.3-0.8); Monocytes Percent Auto 9.1 % (1.7-12.0); Neutrophils Percent Auto 70.6 % (43.0-75.0); Platelet Count 142 10^3/uL (150-450); Red Blood Count 3.47 10^6/uL (4.70-6.10); Red Cell Distribution Width 19.3 % (11.0-15.0); White Blood Count 8.5 10^3/uL (4.0-11.0)
[2023-10-02] MEDS: LEVOFLOXACIN IN DEXTROSE 5 % 750 MG/150 ML IV.SOLN 100 MG IV (18:15)
[2023-10-02] MEDS: PANTOPRAZOLE SODIUM 40 MG VIAL IV (20:37)
[2023-10-02 20:38] LABS: Glucometer 252 mg/dL (74-106)
[2023-10-02] MEDS: PROSTAT 15 GM PROTEIN/100 CAL 30 ML LIQUID PACKET PO (20:38)
[2023-10-02] MEDS: ENSURE HP 237 ML LIQUID PO (20:38)
[2023-10-02] MEDS: JUVEN PACKET 1 PACKET PO (20:38)
[2023-10-02] MEDS: POTASSIUM CHLORIDE 10 MEQ ER TABLET 20 MEQ PO (20:38)
[2023-10-02] MEDS: BENZONATATE 100 MG CAPSULE 200 MG PO (20:43)
[2023-10-02] MEDS: TAMSULOSIN HCL 0.4 MG CAPSULE 0.400000000000000022 MG PO (20:44)
[2023-10-02] MEDS: AMITRIPTYLINE HCL 25 MG TABLET 100 MG PO (21:16)
[2023-10-03] VITALS (16 sets, daily range): BP systolic 94–107; BP diastolic 64–66; PULSE 92–119; TEMP 36.6–37.4; O2SAT 94–99
[2023-10-03] MEDS: LACTATED RINGER'S SOLUTION 1,000 ML 100 ML IV (00:18)
[2023-10-03] MEDS: CLINDAMYCIN PHOSPHATE/D5W 600 MG/50 ML PIGGYBACK 100 MG IV ×4 (00:18→17:10)
[2023-10-03] MEDS: HYDROCODONE/ACET 5-325 MG TABLET 2 TAB PO ×3 (02:46→17:13)
[2023-10-03] MEDS: TRAMADOL HCL 50 MG TABLET PO (04:47)
[2023-10-03] MEDS: IPRATROPIUM/ALBUTEROL SULFATE 3 ML AMPUL.NEB IH ×4 (04:53→20:33)
[2023-10-03 04:55] LABS: Basophils Absolute Auto 0.1 10^3/uL (0.0-0.1); Basophils Percent Auto 0.7 % (0.2-2.0); Eosinophils Absolute Auto 0.3 10^3/uL (0.0-0.7); Eosinophils Percent Auto 2.7 % (0.9-7.0); Hematocrit 26.4 % (42.0-54.0); Hemoglobin 8.1 g/dL (14.0-18.0); Immature Granulocytes Abs Auto 0.12 10^3/uL (0.00-0.03); Lymphocytes Absolute Auto 1.4 10^3/uL (1.2-3.8); Lymphocytes Percent Auto 12.1 % (20.5-60.0); Mean Corpuscular HGB Conc 30.7 g/dL (29.9-35.2); Mean Corpuscular Hemoglobin 23.2 pg (25.9-34.0); Mean Corpuscular Volume 75.6 fL (80.0-94.0); Mean Platelet Volume 11.3 fL (9.5-13.5); Monocytes Absolute Auto 1.3 10^3/uL (0.3-0.8); Monocytes Percent Auto 10.8 % (1.7-12.0); Neutrophils Absolute Auto 8.5 10^3/uL (1.4-6.5); Neutrophils Percent Auto 72.7 % (43.0-75.0); Platelet Count 141 10^3/uL (150-450); Red Blood Count 3.49 10^6/uL (4.70-6.10); Red Cell Distribution Width 19.2 % (11.0-15.0); White Blood Count 11.6 10^3/uL (4.0-11.0)
[2023-10-03] MEDS: ROPINIROLE HCL 1 MG TABLET PO ×3 (04:57→22:12)
[2023-10-03] MEDS: MAGNESIUM OXIDE 400 MG TABLET PO ×3 (04:58→22:12)
[2023-10-03] MEDS: PREGABALIN 100 MG CAPSULE 200 MG PO ×3 (05:00→22:12)
[2023-10-03 05:14] LABS: Alanine Aminotransferase 17 U/L (16-63); Albumin Globulin Ratio 0.5; Albumin Level 1.9 g/dL (3.4-5.0); Alkaline Phosphatase 140 U/L (46-116); Anion Gap 13.9; Aspartate Amino Transferase 21 U/L (15-37); BUN Creatinine Ratio 14.6; Bilirubin Total 0.3 mg/dL (0.2-1.0); Calcium 6.7 mg/dL (8.5-10.1); Carbon Dioxide 23.9 mmol/L (21.0-32.0); Chloride 101 mmol/L (98-107); Erythrocyte Sedimentation Rate >130 mm/hr (<=20); Estimated GFR (African America 55 (>=60); Estimated GFR (Non-African Ame 46 (>=60); Globulin 4.1 g/dL; Glucose 142 mg/dL (74-106); Magnesium 1.3 mg/dL (1.8-2.4); Potassium 4.8 mmol/L (3.5-5.1); Sodium 134 mmol/L (136-145)
[2023-10-03] MEDS: MORPHINE SULFATE 2 MG/ML SYRINGE IV (07:21)
[2023-10-03] MEDS: INSULIN ASPART 300 UNIT/3 ML PEN SUBQ ×4 (07:31→21:32)
[2023-10-03] MEDS: MAGNESIUM SULFATE IN WATER 2 GM/50 ML PREMIX IV (07:31)
--- NOTE | 2023-10-03 07:43 | P.PN_ITS ---
Progress Note: Subjective Subjective Interval history: Patient is sleeping but awakens easily, only complaint is pain. Exam Constitutional Vital Signs, click to edit/add: Last Vital Signs Temp 97.9 F 10/02/23 23:19 Pulse 119 H 10/03/23 06:07 Resp 24 H 10/03/23 04:53 BP 129/75 10/02/23 23:19 Pulse Ox 97 10/03/23 06:07 O2 Del Method Room Air 10/03/23 04:53 Documenting provider has reviewed patient's vital signs: yes Common normals: no apparent distress Exam limitations: no altered mental status General appearance: comfortable (Recently dosed with morphine) Chest Common normals: inspection of chest normal Respiratory Common normals: normal respiratory effort (Somewhat tachypneic), no use of accessory muscles and clear to auscultation bilaterally Cardio Common normals: regular rate and regular rhythm Extremity Common normals: no clubbing, cyanosis or edema; abnormal to inspection (Large dressing on foot) Progress Note: Objective Labs Labs: Short CBC 10/02/23 10/03/23 Range/Units 16:56 04:07 WBC 8.5 11.6 H (4.0-11.0) 10^3/uL Hgb 7.8 L 8.1 L (14.0-18.0) g/dL Hct 26.1 L 26.4 L (42.0-54.0) % Plt Count 142 L 141 L (150-450) 10^3/uL BMP 10/03/23 04:07 Sodium 134 L Potassium 4.8 Chloride 101 Carbon Dioxide 23.9 BUN 23.0 H Creatinine 1.57 H Glucose 142 H Calcium 6.7 L Liver Function 10/03/23 Range/Units 04:07 Total Bilirubin 0.3 (0.2-1.0) mg/dL AST 21 (15-37) U/L ALT 17 (16-63) U/L Alkaline Phosphatase 140 H (46-116) U/L Albumin 1.9 L (3.4-5.0) g/dL Progress Note: A&P Assessment and Plan (1) Sepsis: (2) Wound of foot: (3) Acute osteomyelitis of right foot: (4) Ulcer of right foot with necrosis of bone: Plan Admission findings: Sinus tachycardia, respiratory distress, significant hy potension with blood pressure 91/65, acute kidney failure, leukocytosis, elevated ESR, elevated CRP, elevated alkaline phosphatase uncontrolled diabetes mellitus secondary to foot abscess, resulting in severe sepsis. Reviewed cultures from previous surgery, he has 3 infections, Pseudomonas, Enterobacter and strep. We did review what he was taking at home. Verbally reported his doxycycline and linezolid. He is again discussed with podiatry, looks like surgery later this week for ultimate closure of wound. So far cultures are growing Pseudomonas and Citrobacter. Both should be sensitive to the Levaquin. Sensitivities should be back later today. This is from wound cultures initially. Repeated cultures from surgery yesterday we will review in a couple of days. White blood cell count slightly elevated today but not unexpected for postoperative Thrombocytopenia-likely related to the infection as outlined above-monitor daily Acute renal failure-baseline creatinine of 1.69, 3.43 on admission and to be 2 times baseline. Lungs still remain clear, not hypoxic, creatinine back to baseline. Will saline lock Hypokalemia-improved Hyponatremia-monitor daily down somewhat today Iron deficiency anemia-follow daily-improved today. Continue to monitor Poorly controlled diabetes mellitus-continue with insulin sliding scale, will add home medications Severe hypomagnesemia-down further today, repeat IV bolus Coronary artery disease-he states that shortness of breath is somewhat similar to his heart trouble in the past but he has not had any chest pain like he has in the past. No symptoms, will restart Imdur as blood pressure is improving COPD-continue current treatment plan Hypertension-by history-will monitor closely, adding back the Imdur. Blood pressure still stable Severe protein calorie malnutrition-continue supplementation Admission status: Patient placed in the intensive care unit due to severe hyp otension, sepsis severe. Medically necessary treatment will span 2 midnights. Inpatient status. Urinary Catheter Management Urinary Catheter Management Urethral: Cath placed during this visit: yes Urethral indwelling: No Insertion date: 09/30/23 Insertion time: 17:16
--- NOTE | 2023-10-03 08:03 | CM.NOTE ---
Rounds made with Dr. Bryant, pt verbalizes that his pain is not controlled. Dr. Bryant will adjust pain medications. Pt back to OR on per Dr. Elias's note.
[2023-10-03] MEDS: POTASSIUM CHLORIDE 10 MEQ ER TABLET 20 MEQ PO ×2 (08:27→20:22)
[2023-10-03] MEDS: ASPIRIN 81 MG TABLET.DR PO (08:27)
[2023-10-03] MEDS: TAMSULOSIN HCL 0.4 MG CAPSULE 0.400000000000000022 MG PO ×2 (08:27→20:23)
[2023-10-03] MEDS: CLOPIDOGREL BISULFATE 75 MG TABLET PO (08:27)
[2023-10-03] MEDS: JUVEN PACKET 1 PACKET PO ×2 (08:27→20:21)
[2023-10-03] MEDS: ENSURE HP 237 ML LIQUID PO ×2 (08:27→20:24)
[2023-10-03] MEDS: TIZANIDINE HCL 4 MG TABLET PO (08:27)
[2023-10-03] MEDS: ATORVASTATIN CALCIUM 40 MG TABLET 80 MG PO (08:27)
[2023-10-03] MEDS: PROSTAT 15 GM PROTEIN/100 CAL 30 ML LIQUID PACKET PO ×2 (08:27→20:23)
[2023-10-03] MEDS: ISOSORBIDE MONONITRATE 30 MG TAB.ER.24H PO (08:29)
[2023-10-03] MEDS: SITAGLIPTIN PHOSPHATE 50 MG TABLET 100 MG PO (08:29)
[2023-10-03] MEDS: GLIMEPIRIDE 2 MG TABLET PO ×2 (08:29→20:22)
--- NOTE | 2023-10-03 08:55 | PM.PN ---
Progress Note: Subjective Subjective Interval history: patient seen at bedside and is very happy with his progress. He relates he feels tremendously better and was able to eat breakfast. He has no complaints. Exam Narrative Exam Narrative: separate is clean dry and intact. Able to wiggle lesser toes. Pain on squeeze Constitutional Vital Signs, click to edit/add: Last Vital Signs Temp 97.9 F 10/02/23 23:19 Pulse 102 H 10/03/23 08:00 Resp 24 H 10/03/23 04:53 BP 129/75 10/02/23 23:19 Pulse Ox 97 10/03/23 06:07 O2 Del Method Room Air 10/03/23 04:53 Progress Note: Objective Labs Labs: Short CBC 10/02/23 10/03/23 Range/Units 16:56 04:07 WBC 8.5 11.6 H (4.0-11.0) 10^3/uL Hgb 7.8 L 8.1 L (14.0-18.0) g/dL Hct 26.1 L 26.4 L (42.0-54.0) % Plt Count 142 L 141 L (150-450) 10^3/uL BMP 10/03/23 04:07 Sodium 134 L Potassium 4.8 Chloride 101 Carbon Dioxide 23.9 BUN 23.0 H Creatinine 1.57 H Glucose 142 H Calcium 6.7 L Liver Function 10/03/23 Range/Units 04:07 Total Bilirubin 0.3 (0.2-1.0) mg/dL AST 21 (15-37) U/L ALT 17 (16-63) U/L Alkaline Phosphatase 140 H (46-116) U/L Albumin 1.9 L (3.4-5.0) g/dL Progress Note: A&P Assessment and Plan (1) Sepsis: (2) Wound of foot: (3) Acute osteomyelitis of right foot: (4) Ulcer of right foot with necrosis of bone: Plan patient has significantly improved over the last forty-eight hours and will be transferred out of the ICU to [facility] today Patient scheduled for repeat surgery on for transmetatarsal amputation Continue broad-spectrum antibiotics until cultures have returned Nonweightbearing right foot Will follow Urinary Catheter Management Urinary Catheter Management Urethral: Cath placed during this visit: yes Urethral indwelling: No Insertion date: 09/30/23 Insertion time: 17:16
--- NOTE | 2023-10-03 09:17 | SWNOTE1 ---
Plan is for pt to go back to surgery on , per podiatry.
[2023-10-03] MEDS: BUDESONIDE 0.5 MG/2 ML AMPULE NEB IH ×2 (11:16→20:33)
[2023-10-03] MEDS: NICOTINE 21 MG PATCH.TD24 TD (11:19)
[2023-10-03 11:23] LABS: Glucometer 251 mg/dL (74-106)
--- NOTE | 2023-10-03 13:40 | SWNOTE1 ---
SW reviewed therapy notes and wheelchair, knee scooter, and bedside commode recommended. SW to speak with pt about the DME. Knee scooters can only be rented, insurance does not cover.
--- NOTE | 2023-10-03 13:58 | SWNOTE1 ---
SW met with pt to discuss dc needs. Pt lives at home with his . They live in a mobile home. He has knee scooter, bedside commode, wheelchair, walker, cane, and crutches at home. Nursing came in room and mentioned pt's works at facility and mentioned going there. Pt voiced his does want him to go to [employer] where she works. Pt is agreeable if needed. Pt is alright with SW checking with [place] and his .
[2023-10-03] MEDS: MORPHINE SULFATE 4 MG/ML VIAL IV ×2 (14:07→20:23)
--- NOTE | 2023-10-03 14:19 | SWNOTE1 ---
SW spoke to pt's , Yamileth. 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 She voiced she spoke with Isabel, the clinical social work aide, about the possibility of pt needing SNF. She voiced especially after the surgery on . SW to reach out to Isabel and confirm they are in network and have openings. Pt will be a precert. Pt is agreeable for SNF.
--- NOTE | 2023-10-03 14:26 | SWNOTE1 ---
MILANA did reach out to Isabel in admissions at [facility], waiting to hear back.
--- NOTE | 2023-10-03 14:52 | SWNOTE1 ---
[facility] is running benefits, they may be out of network.
[2023-10-03 17:21] LABS: Glucometer 172 mg/dL (74-106)
[2023-10-03] MEDS: AMITRIPTYLINE HCL 25 MG TABLET 100 MG PO (20:22)
[2023-10-03] MEDS: PANTOPRAZOLE SODIUM 40 MG VIAL IV (20:24)
[2023-10-03 20:25] LABS: Glucometer 211 mg/dL (74-106)
[2023-10-04] VITALS (18 sets, daily range): BP systolic 121–134; BP diastolic 65–81; PULSE 89–122; TEMP 36.8–37.1; O2SAT 92–99
[2023-10-04] MEDS: CLINDAMYCIN PHOSPHATE/D5W 600 MG/50 ML PIGGYBACK 100 MG IV ×5 (00:10→23:11)
[2023-10-04] MEDS: IPRATROPIUM/ALBUTEROL SULFATE 3 ML AMPUL.NEB IH ×4 (04:25→20:34)
[2023-10-04 04:59] LABS: Basophils Absolute Auto 0.1 10^3/uL (0.0-0.1); Basophils Percent Auto 0.5 % (0.2-2.0); Eosinophils Absolute Auto 0.4 10^3/uL (0.0-0.7); Eosinophils Percent Auto 3.6 % (0.9-7.0); Hematocrit 26.8 % (42.0-54.0); Hemoglobin 7.9 g/dL (14.0-18.0); Immature Granulocytes Pct Auto 0.9 % (0.0-0.5); Lymphocytes Absolute Auto 1.3 10^3/uL (1.2-3.8); Lymphocytes Percent Auto 10.9 % (20.5-60.0); Mean Corpuscular HGB Conc 29.5 g/dL (29.9-35.2); Mean Corpuscular Hemoglobin 22.4 pg (25.9-34.0); Mean Corpuscular Volume 75.9 fL (80.0-94.0); Mean Platelet Volume 11.5 fL (9.5-13.5); Monocytes Absolute Auto 1.4 10^3/uL (0.3-0.8); Monocytes Percent Auto 12.4 % (1.7-12.0); Neutrophils Absolute Auto 8.3 10^3/uL (1.4-6.5); Neutrophils Percent Auto 71.7 % (43.0-75.0); Platelet Count 154 10^3/uL (150-450); Red Blood Count 3.53 10^6/uL (4.70-6.10); Red Cell Distribution Width 19.6 % (11.0-15.0); White Blood Count 11.5 10^3/uL (4.0-11.0)
[2023-10-04] MEDS: PREGABALIN 100 MG CAPSULE 200 MG PO ×3 (05:00→21:08)
[2023-10-04] MEDS: ROPINIROLE HCL 1 MG TABLET PO ×3 (05:00→21:08)
[2023-10-04] MEDS: MAGNESIUM OXIDE 400 MG TABLET PO ×3 (05:00→21:08)
[2023-10-04] MEDS: HYDROCODONE/ACET 5-325 MG TABLET 2 TAB PO ×2 (05:04→14:24)
[2023-10-04 05:20] LABS: Alanine Aminotransferase 16 U/L (16-63); Albumin Globulin Ratio 0.4; Albumin Level 1.9 g/dL (3.4-5.0); Alkaline Phosphatase 135 U/L (46-116); Anion Gap 12.1; Aspartate Amino Transferase 19 U/L (15-37); BUN Creatinine Ratio 15.5; Bilirubin Total 0.4 mg/dL (0.2-1.0); Calcium 7.8 mg/dL (8.5-10.1); Chloride 102 mmol/L (98-107); Estimated GFR (African America 54 (>=60); Estimated GFR (Non-African Ame 44 (>=60); Globulin 4.3 g/dL; Glucose 136 mg/dL (74-106); Magnesium 1.7 mg/dL (1.8-2.4); Potassium 5.1 mmol/L (3.5-5.1); Sodium 134 mmol/L (136-145); Total Protein 6.2 g/dL (6.4-8.2)
[2023-10-04 05:28] LABS: Erythrocyte Sedimentation Rate 117 mm/hr (<=20)
--- NOTE | 2023-10-04 08:15 | CM.NOTE ---
Rounds made with Dr. Bryant. Plan for surgery tomorrow.
[2023-10-04] MEDS: MORPHINE SULFATE 4 MG/ML VIAL IV ×3 (08:30→21:25)
--- NOTE | 2023-10-04 08:34 | P.PN_ITS ---
Progress Note: Subjective Subjective Interval history: Patient up and make this morning. No complaints. Did not bring up pain, hoping that is a good sign pain is well-controlled Exam Constitutional Vital Signs, click to edit/add: Last Vital Signs Temp 98.8 F 10/04/23 04:00 Pulse 115 H 10/04/23 08:00 Resp 16 10/04/23 08:00 BP 134/81 10/04/23 08:00 Pulse Ox 95 10/04/23 08:00 O2 Del Method Room Air 10/04/23 04:27 Documenting provider has reviewed patient's vital signs: yes Common normals: no apparent distress Exam limitations: no altered mental status General appearance: comfortable (Seems comfortable) Chest Common normals: inspection of chest normal Respiratory Common normals: normal respiratory effort (Somewhat tachypneic), no use of accessory muscles and clear to auscultation bilaterally Cardio Common normals: regular rate and regular rhythm Extremity Common normals: no clubbing, cyanosis or edema; abnormal to inspection (Large dressing on foot) Progress Note: Objective Labs Labs: Short CBC 10/04/23 Range/Units 04:11 WBC 11.5 H (4.0-11.0) 10^3/uL Hgb 7.9 L (14.0-18.0) g/dL Hct 26.8 L (42.0-54.0) % Plt Count 154 (150-450) 10^3/uL BMP 10/04/23 04:11 Sodium 134 L Potassium 5.1 Chloride 102 Carbon Dioxide 25.0 BUN 25.0 H Creatinine 1.61 H Glucose 136 H Calcium 7.8 L Liver Function 10/04/23 Range/Units 04:11 Total Bilirubin 0.4 (0.2-1.0) mg/dL AST 19 (15-37) U/L ALT 16 (16-63) U/L Alkaline Phosphatase 135 H (46-116) U/L Albumin 1.9 L (3.4-5.0) g/dL Progress Note: A&P Assessment and Plan (1) Sepsis: (2) Wound of foot: (3) Acute osteomyelitis of right foot: (4) Ulcer of right foot with necrosis of bone: Plan Admission findings: Sinus tachycardia, respiratory distress, significant hypotension with blood pressure 91/65, acute kidney failure, leukocytosis, elevated ESR, elevated CRP, elevated alkaline phosphatase uncontrolled diabetes mellitus secondary to foot abscess, resulting in severe sepsis. Reviewed cultures from previous surgery, he has 3 infections, Pseudomonas, Enterobacter and strep. We did review what he was taking at home. Verbally reported his doxycycline and linezolid. He is again discussed with podiatry, looks like surgery later this week for ultimate closure of wound. ...............So far cultures are growing Pseudomonas and Citrobacter, Klebsiella was added yesterday. All should be sensitive to the Levaquin. Sensitivities should be back later today. Repeat cultures from surgery yesterday are pending. Further surgical intervention tomorrow Thrombocytopenia-likely related to the infection as outlined above-monitor daily Acute renal failure-baseline creatinine of 1.69, 3.43 on admission and to be 2 times baseline. Creatinine is up slightly today. Continue to monitor Hypokalemia-improved Hyponatremia-down somewhat again today,, continue to monitor Iron deficiency anemia-follow daily-improved today. Continue to monitor Poorly controlled diabetes mellitus-continue with insulin sliding scale, add metformin today Severe hypomagnesemia-continue to monitor and supplement Coronary artery disease-he states that shortness of breath is somewhat similar to his heart trouble in the past but he has not had any chest pain like he has in the past. No symptoms, will restart Imdur as blood pressure is improving COPD-continue current treatment plan Hypertension-by history-will monitor closely, adding back the Imdur. Blood pressure still stable Severe protein calorie malnutrition-continue supplementation Admission status: Patient placed in the intensive care unit due to severe hypotension, sepsis severe. Medically necessary treatment will span 2 midnights. Inpatient status. Urinary Catheter Management Urinary Catheter Management Urethral: Cath placed during this visit: yes Urethral indwelling: No Insertion date: 09/30/23 Insertion time: 17:16
--- NOTE | 2023-10-04 09:58 | SWNOTE1 ---
MILANA received a message from Isabel at [facility] and they are out of network and would owe $6,000 before insurance would pay. SW to let pt's know and pt.
[2023-10-04] MEDS: GLIMEPIRIDE 2 MG TABLET PO ×2 (10:12→21:08)
[2023-10-04] MEDS: SITAGLIPTIN PHOSPHATE 50 MG TABLET 100 MG PO (10:12)
[2023-10-04] MEDS: JUVEN PACKET 1 PACKET PO ×2 (10:12→21:06)
[2023-10-04] MEDS: ENSURE HP 237 ML LIQUID PO ×2 (10:12→21:06)
--- NOTE | 2023-10-04 10:12 | SWNOTE1 ---
SW spoke to pt's in regards to [facility], she voiced understanding. She would like SW to try [facility] as first choice and [facility] as second. MILANA sent message to Tyree at [facility] to see if they have openings.
[2023-10-04] MEDS: ATORVASTATIN CALCIUM 40 MG TABLET 80 MG PO (10:14)
[2023-10-04] MEDS: TIZANIDINE HCL 4 MG TABLET PO (10:14)
[2023-10-04] MEDS: ISOSORBIDE MONONITRATE 30 MG TAB.ER.24H PO (10:14)
[2023-10-04] MEDS: TAMSULOSIN HCL 0.4 MG CAPSULE 0.400000000000000022 MG PO ×2 (10:15→21:08)
[2023-10-04] MEDS: POTASSIUM CHLORIDE 10 MEQ ER TABLET 20 MEQ PO ×2 (10:15→21:08)
[2023-10-04] MEDS: PROSTAT 15 GM PROTEIN/100 CAL 30 ML LIQUID PACKET PO ×2 (10:16→21:06)
[2023-10-04] MEDS: ASPIRIN 81 MG TABLET.DR PO (10:16)
[2023-10-04] MEDS: METFORMIN HCL 500 MG TABLET PO ×2 (10:18→16:20)
[2023-10-04] MEDS: BUDESONIDE 0.5 MG/2 ML AMPULE NEB IH ×2 (10:42→20:34)
[2023-10-04 11:18] LABS: Glucometer 235 mg/dL (74-106)
--- NOTE | 2023-10-04 11:19 | SWNOTE1 ---
Referral sent to [facility]. Referral included face sheet, ED note, H&P, provider notes, case management report, wound consult, nursing notes, diagnostic imaging, med list, and PT/OT notes. [facility] is NOT able to accept. Referral sent to [facility]. Referral included face sheet, ED note, H&P, provider notes, case management report, wound consult, nursing notes, diagnostic imaging, med list, and PT/OT notes.
--- NOTE | 2023-10-04 11:47 | PT.DAILY ---
Physical Therapy Daily Note PT Daily Note/Assess Start: 10/04/23 11:44 Freq: Status: Active Protocol: Document 10/04/23 11:44 JENNIFER (Rec: 10/04/23 11:47 VINAYEDWARD [id number]) Physical Therapy Daily Note/Assessment Time In/Time Out Time In 11:01 Time Out 11:15 Pain In Pain N/A Pain Out Pain N/A Subjective Subjective Pt supine upon arrival. Agrees to get into chair for lunch. 8/10 pain this morning. Therapeutic Exercise Time Therapeutic Exercise Minutes (minutes) 3 Therapeutic Exercise Units 0 Therapeutic Exercise Treatment Therapeutic Exercise Treatment Seated LAQ, marches, abd step outs, and AP (L only) 10x ea. Therapeutic Activity Time Therapeutic Activity Minutes (minutes) 8 Therapeutic Activity Units 1 Therapeutic Activity Treatment Bed Mobility Ability Standby Assistance Chair Transfer Ability Moderate Assist,2 Person Assist Therapeutic Activity Comments Supine>sit SBA with increased time to complete. Sit>stand Katie+2. 3 hops and stand pivot to BS chair with RW ModA+2. Able to maintain NWB with assistance to maintain balance . Seated ex complete in BS chair. Remains in BS chair upon completion with call light in reach and needs met. Total Physical Therapy Time Total Therapy Minutes 11 Total Physical Therapy Units 1 Summary Daily Note Summary Improved gait/pivot ability while maintaining NWB R LE.
[2023-10-04] MEDS: INSULIN ASPART 300 UNIT/3 ML PEN SUBQ ×3 (11:58→21:06)
[2023-10-04] MEDS: 0.9 % SODIUM CHLORIDE 250 ML 10 ML IV (11:58)
--- NOTE | 2023-10-04 12:59 | SWNOTE1 ---
[facility] is not [facility] to accept due to pt's meds costing too much. Pt is on quite a few home medications that are costly, per the nursing homes. SW to call .
--- NOTE | 2023-10-04 13:11 | SWNOTE1 ---
SW spoke to pt's and updated her on [facility] and [place]. SW provided her with other facilities on star rating from medicare.gov that accept [facility]. She would like MILANA to try [facility]. MILANA to speak with pt. Referral sent to [facility]. Referral included face sheet, ED note, H&P, provider notes, case management report, wound consult, nursing notes, diagnostic imaging, med list, and PT/OT notes.
--- NOTE | 2023-10-04 14:08 | SWNOTE1 ---
[facility] is able to accept and will start precert.
--- NOTE | 2023-10-04 15:33 | SWNOTE1 ---
SW now received an email that [facility] is out of network. SW to notify pt's .
--- NOTE | 2023-10-04 15:44 | SWNOTE1 ---
MILANA called and let know pt is out of network. would like to try to [facility] in [place] or [facility] in [place]. MILANA then received an email from Cee at [facility] and they may be in network now after looking further in to it. SW to wait from Cee to call back.
--- NOTE | 2023-10-04 16:06 | SWNOTE1 ---
[facility] is now in network and they have submitted authorization.
[2023-10-04 16:08] LABS: Glucometer 173 mg/dL (74-106)
[2023-10-04] MEDS: NICOTINE 21 MG PATCH.TD24 TD (16:26)
--- NOTE | 2023-10-04 17:16 | PM.PN ---
Progress Note: Subjective Subjective Interval history: Patient seen resting comfortably at bedside, POD #2 s/p right partial first ray resection, DOS 10/02/2023. Reports minimal pain to the right foot, states he is continuing to feel better overall and denies any constitutional symptoms at time of visit. He denied any other lower extremity complaints. Exam Narrative Exam Narrative: RLE splint left CDI. CFT intact to lesser digits. No erythema edema or ecchymosis proximal to dressing. Compartment soft and compressible, no pain with calf or thigh compression. Constitutional Vital Signs, click to edit/add: Last Vital Signs Temp 98.5 F 10/04/23 16:17 Pulse 102 H 10/04/23 16:17 Resp 18 10/04/23 16:17 BP 129/65 10/04/23 16:17 Pulse Ox 95 10/04/23 16:17 O2 Del Method Room Air 10/04/23 16:17 Progress Note: Objective Labs Labs: Short CBC 10/04/23 Range/Units 04:11 WBC 11.5 H (4.0-11.0) 10^3/uL Hgb 7.9 L (14.0-18.0) g/dL Hct 26.8 L (42.0-54.0) % Plt Count 154 (150-450) 10^3/uL BMP 10/04/23 04:11 Sodium 134 L Potassium 5.1 Chloride 102 Carbon Dioxide 25.0 BUN 25.0 H Creatinine 1.61 H Glucose 136 H Calcium 7.8 L Liver Function 10/04/23 Range/Units 04:11 Total Bilirubin 0.4 (0.2-1.0) mg/dL AST 19 (15-37) U/L ALT 16 (16-63) U/L Alkaline Phosphatase 135 H (46-116) U/L Albumin 1.9 L (3.4-5.0) g/dL Progress Note: A&P Assessment and Plan (1) Sepsis: (2) Wound of foot: (3) Acute osteomyelitis of right foot: (4) Ulcer of right foot with necrosis of bone: Plan Patient examined and evaluated. All findings discussed with patient and all questions answered by satisfaction. Pertinent labs and imaging reviewed. WBC downtrending. Continues to report improvement in overall symptoms, denied pain in the right foot at time of visit. Leave RLE splint CDI. Plan for return to OR tomorrow for Right transmetatarsal amputation N.p.o. after midnight tonight Plavix currently being held, remains on aspirin Plan for nonweightbearing to the right lower extremity following surgery tomorrow, pre-CERT pending for SNF. Continue IV clinda, Will update plan following surgery tomorrow. Rest per primary, open call with questions or concerns. Urinary Catheter Management Urinary Catheter Management Urethral: Cath placed during this visit: yes Urethral indwelling: No Insertion date: 09/30/23 Insertion time: 17:16
[2023-10-04] MEDS: LEVOFLOXACIN IN DEXTROSE 5 % 750 MG/150 ML IV.SOLN 100 MG IV (18:19)
[2023-10-04 19:49] LABS: Glucometer 237 mg/dL (74-106)
[2023-10-04] MEDS: LACTULOSE 10 GM/15 ML (237ML) SOLUTION 30 GM PO (21:07)
[2023-10-04] MEDS: AMITRIPTYLINE HCL 25 MG TABLET 100 MG PO (21:08)
[2023-10-04] MEDS: PANTOPRAZOLE SODIUM 40 MG VIAL IV (21:20)
[2023-10-05] VITALS (65 sets, daily range): BP systolic 113–143; BP diastolic 63–103; PULSE 93–120; TEMP 36.6–36.7; O2SAT 89–98
[2023-10-05] MEDS: ONDANSETRON PF 4 MG/2 ML VIAL IV (04:36)
[2023-10-05] MEDS: IPRATROPIUM/ALBUTEROL SULFATE 3 ML AMPUL.NEB IH ×3 (04:50→21:25)
[2023-10-05 05:27] LABS: Basophils Absolute Auto 0.1 10^3/uL (0.0-0.1); Basophils Percent Auto 0.6 % (0.2-2.0); Eosinophils Absolute Auto 0.4 10^3/uL (0.0-0.7); Eosinophils Percent Auto 3.3 % (0.9-7.0); Hematocrit 29.9 % (42.0-54.0); Immature Granulocytes Abs Auto 0.16 10^3/uL (0.00-0.03); Immature Granulocytes Pct Auto 1.3 % (0.0-0.5); Lymphocytes Absolute Auto 1.3 10^3/uL (1.2-3.8); Lymphocytes Percent Auto 10.1 % (20.5-60.0); Mean Corpuscular HGB Conc 30.1 g/dL (29.9-35.2); Mean Corpuscular Hemoglobin 22.7 pg (25.9-34.0); Mean Corpuscular Volume 75.3 fL (80.0-94.0); Mean Platelet Volume 11.3 fL (9.5-13.5); Monocytes Absolute Auto 1.4 10^3/uL (0.3-0.8); Monocytes Percent Auto 10.9 % (1.7-12.0); Neutrophils Absolute Auto 9.3 10^3/uL (1.4-6.5); Neutrophils Percent Auto 73.8 % (43.0-75.0); Platelet Count 203 10^3/uL (150-450); Red Blood Count 3.97 10^6/uL (4.70-6.10); Red Cell Distribution Width 19.6 % (11.0-15.0); White Blood Count 12.6 10^3/uL (4.0-11.0)
[2023-10-05] MEDS: CLINDAMYCIN PHOSPHATE/D5W 600 MG/50 ML PIGGYBACK 100 MG IV ×3 (05:39→20:28)
[2023-10-05 05:43] LABS: Erythrocyte Sedimentation Rate 130 mm/hr (<=20)
[2023-10-05 05:46] LABS: Alanine Aminotransferase 18 U/L (16-63); Albumin Globulin Ratio 0.5; Albumin Level 2.2 g/dL (3.4-5.0); Alkaline Phosphatase 140 U/L (46-116); Anion Gap 15.7; Aspartate Amino Transferase 22 U/L (15-37); BUN Creatinine Ratio 17.2; Bilirubin Total 0.5 mg/dL (0.2-1.0); Calcium 9.2 mg/dL (8.5-10.1); Carbon Dioxide 22.6 mmol/L (21.0-32.0); Chloride 100 mmol/L (98-107); Estimated GFR (African America 49 (>=60); Estimated GFR (Non-African Ame 41 (>=60); Globulin 4.7 g/dL; Glucose 162 mg/dL (74-106); Magnesium 1.7 mg/dL (1.8-2.4); Potassium 5.3 mmol/L (3.5-5.1); Sodium 133 mmol/L (136-145); Total Protein 6.9 g/dL (6.4-8.2)
[2023-10-05] MEDS: 0.9 % SODIUM CHLORIDE 1,000 ML 1000 ML IV (06:36)
[2023-10-05 07:32] LABS: Glucometer 194 mg/dL (74-106)
[2023-10-05] MEDS: INSULIN ASPART 300 UNIT/3 ML PEN SUBQ ×3 (08:23→22:11)
--- NOTE | 2023-10-05 08:42 | CM.NOTE ---
Rounds made with Dr. Bryant, plan is for pt to return back to OR today. Pt will go to [facility] for skilled care when medically stable for discharge.
--- NOTE | 2023-10-05 08:49 | P.PN_ITS ---
Progress Note: Subjective Subjective Interval history: Pain better today - no new complaints Exam Constitutional Vital Signs, click to edit/add: Last Vital Signs Temp 97.9 F 10/05/23 04:00 Pulse 120 H 10/05/23 06:00 Resp 18 10/05/23 04:51 BP 113/69 10/05/23 04:00 Pulse Ox 90 L 10/05/23 04:51 O2 Del Method Room Air 10/05/23 04:51 Documenting provider has reviewed patient's vital signs: yes Common normals: no apparent distress Exam limitations: no altered mental status General appearance: comfortable (Seems comfortable) Chest Common normals: inspection of chest normal Respiratory Common normals: normal respiratory effort (Somewhat tachypneic), no use of accessory muscles and clear to auscultation bilaterally Cardio Common normals: regular rate and regular rhythm GI Common normals: Normal to inspection, nondistended, normoactive bowel sounds present Extremity Common normals: no clubbing, cyanosis or edema; abnormal to inspection (Large dressing on foot) Progress Note: Objective Labs Labs: Short CBC 10/05/23 Range/Units 04:58 WBC 12.6 H (4.0-11.0) 10^3/uL Hgb 9.0 L (14.0-18.0) g/dL Hct 29.9 L (42.0-54.0) % Plt Count 203 (150-450) 10^3/uL BMP 10/05/23 04:58 Sodium 133 L Potassium 5.3 H Chloride 100 Carbon Dioxide 22.6 BUN 30.0 H Creatinine 1.74 H Glucose 162 H Calcium 9.2 Liver Function 10/05/23 Range/Units 04:58 Total Bilirubin 0.5 (0.2-1.0) mg/dL AST 22 (15-37) U/L ALT 18 (16-63) U/L Alkaline Phosphatase 140 H (46-116) U/L Albumin 2.2 L (3.4-5.0) g/dL Progress Note: A&P Assessment and Plan (1) Sepsis: (2) Wound of foot: (3) Acute osteomyelitis of right foot: (4) Ulcer of right foot with necrosis of bone: Plan Admission findings: Sinus tachycardia, respiratory distress, significant hypotension with blood pressure 91/65, acute kidney failure, leukocytosis, elevated ESR, elevated CRP, elevated alkaline phosphatase uncontrolled diabetes mellitus secondary to foot abscess, resulting in severe sepsis. Reviewed cultures from previous surgery, he has 3 infections, Pseudomonas, Enterobacter and strep. We did review what he was taking at home. Verbally reported his doxycycline and linezolid. He is again discussed with podiatry, looks like surgery later this week for ultimate closure of wound. ...............So far cultures are growing Pseudomonas and Citrobacter, Klebsiella all sensitiv e to the levofloxacin. All should be sensitive to the Levaquin. Sensitivities should be back later today. Repeat cultures from surgery yesterday are pending. Further surgical intervention today Thrombocytopenia-likely related to the infection as outlined above-stable Acute renal failure-baseline creatinine of 1.69, 3.43 on admission and to be 2 times baseline. Up slightly again today. Will repeat fluid bolus Hypokalemia-improved Hyponatremia-down somewhat again today,,-stable Iron deficiency anemia-follow daily-improved today. Continue to monitor Poorly controlled diabetes mellitus-continue with insulin sliding scale, add metformin today-up somewhat today, likely related to the infection. Will continue to monitor closely and continue with insulin sliding scale Severe hypomagnesemia-continue to monitor and supplement Coronary artery disease-he states that shortness of breath is somewhat similar to his heart trouble in the past but he has not had any chest pain like he has in the past. No symptoms, will restart Imdur as blood pressure is improving COPD-continue current treatment plan Hypertension-by history-will monitor closely, adding back the Imdur. Blood pressure still stable Severe protein calorie malnutrition-continue supplementation Admission status: Patient placed in the intensive care unit due to severe hypotension, sepsis severe. Medically necessary treatment will span 2 midnights. Inpatient status. Patient will be in need of rehab postoperatively. Urinary Catheter Management Urinary Catheter Management Urethral: Cath placed during this visit: yes Urethral indwelling: No Insertion date: 09/30/23 Insertion time: 17:16
[2023-10-05] MEDS: LACTATED RINGER'S SOLUTION 1,000 ML 50 ML IV ×4 (09:05→22:08)
--- NOTE | 2023-10-05 10:09 | P.ORON_ITS ---
Brief Operative Note Date of procedure: 10/05/23 Pre-op diagnosis general: right foot acute osteomyelitis, diabetic foot ulcer with bone necrosis, diabetic neuropathy Post-op diagnosis: same as pre-op Procedure: PROCEDURES PERFORMED: right transmetatarsal amputation and application of short leg splint as part of staged procedure INDICATION FOR PROCEDURE: patient is a 58-year-old male admitted for sepsis associated with diabetic foot ulceration and osteomyelitis. Three days ago he underwent partial 1st ray amputation and presents back to the operating room for planned staged partial foot amputation closure. INTRAOPERATIVE FINDINGS: Lateral forefoot skin with serous filled blister. skin from the great toe which was left was bluish in color consistent with venous congestion. Viability of the skin was not substantial enough to maintain the skin. 2 cm area of eschar on dorsal medial midfoot. Skin edges were sluggish to bleed but there is no signs of acute infection or saleem necrotic tissue. No purulence or erythema. PROCEDURES IN DETAIL: Patient was identified in pre op and consent was reviewed. Correct side and site were identified and marked. patient is receiving scheduled antibiotics therefore no additional antibiotics were given. Patient was brought to OR suite and place on table in a supine position. General anesthesia was administered. Tourniquet applied. Operative extremity was prepped and draped in usual sterile fashion. Formal time-out was performed and the foot/ankle were exsanguinated and tourniquet inflated. A fishmouth incision was placed over the distal foot. Sharp dissection down to bone was performed. An elevator was used to raised full-thickness flap dorsally. Then a sagittal saw was used to perform osteotomies of each metatarsal taking care to preserve metatarsal parabola and avoid any bony prominences. Then with a comminution sharp and blunt dissection the distal forefoot was amputated and passed back table for specimen. Surgical site was irrigated with 3 L normal saline. 1 g of vancomycin powder and 1 g of gentamicin powder were placed into the surgical site prior to closure. The incision was closed in one layer. The tourniquet was deflated with a delayed hyperemic response. Adaptic was placed over the incision followed by black granular foam which was held in place by Tegaderm drape. A hole was cut into the drape to allow the track pad to be applied. Incisional wound VAC was then initiated and suction was obtained. Multiple layers of cast padding were then applied to ensure all bony prominences were well-padded. A plaster posterior splint was then applied which was held in place by Omero wraps. Patient tolerated the procedure and anesthesia well and was transported to the recovery room with vital signs stable. POSTOPERATIVE PLAN: Transfer to med/surg under hospitalist's care NWB operative foot/ankle Ice and elevation Patient may benefit from SNF upon d/c Estimated LOS 1-2 Will follow *NWB x 2-3 weeks Implants: none Anesthesia: MAC Surgeon: Fredy Elias Ultrasound Coordinator: Franklin Trejo Estimated blood loss (mL): 10 Tourniquet time (min): 33 Pathology: other (transmetatarsal amputation) Condition: stable Disposition: PACU
[2023-10-05] MEDS: LIDOCAINE HCL 1% 100 MG/10 ML MDV 20 ML INJ (10:47)
[2023-10-05] MEDS: GENTAMICIN SULFATE 1 GM POWDER TOPICAL (10:50)
[2023-10-05] MEDS: VANCOMYCIN HCL 1,000 MG VIAL 1000 MG TOPICAL (11:11)
--- NOTE | 2023-10-05 12:08 | SWNOTE1 ---
Pt is approved to go to [facility]. Approval is good for 7 days.
[2023-10-05] MEDS: HYDROCODONE/ACET 5-325 MG TABLET 2 TAB PO ×2 (12:27→17:48)
[2023-10-05] MEDS: HYDROMORPHONE HCL 0.5 MG/0.5 ML SYRINGE IV ×2 (12:28→12:34)
[2023-10-05 12:33] LABS: Glucometer 113 mg/dL (74-106)
[2023-10-05] MEDS: MORPHINE SULFATE 4 MG/ML VIAL IV ×2 (13:30→20:29)
--- NOTE | 2023-10-05 16:17 | SWNOTE1 ---
MILANA sent updates to [facility] at [facility].
[2023-10-05] MEDS: PREGABALIN 100 MG CAPSULE 200 MG PO ×2 (16:23→22:06)
[2023-10-05] MEDS: METFORMIN HCL 500 MG TABLET PO (16:24)
[2023-10-05] MEDS: ROPINIROLE HCL 1 MG TABLET PO ×2 (16:24→22:06)
[2023-10-05] MEDS: MAGNESIUM OXIDE 400 MG TABLET PO ×2 (16:25→22:06)
[2023-10-05 17:53] LABS: Glucometer 308 mg/dL (74-106)
[2023-10-05 19:27] LABS: Glucometer 232 mg/dL (74-106)
[2023-10-05] MEDS: PROSTAT 15 GM PROTEIN/100 CAL 30 ML LIQUID PACKET PO (20:27)
[2023-10-05] MEDS: JUVEN PACKET 1 PACKET PO (20:28)
[2023-10-05] MEDS: GLIMEPIRIDE 2 MG TABLET PO (20:28)
[2023-10-05] MEDS: PANTOPRAZOLE SODIUM 40 MG VIAL IV (20:28)
[2023-10-05] MEDS: POTASSIUM CHLORIDE 10 MEQ ER TABLET 20 MEQ PO (20:28)
[2023-10-05] MEDS: ENSURE HP 237 ML LIQUID PO (20:28)
[2023-10-05] MEDS: TAMSULOSIN HCL 0.4 MG CAPSULE 0.400000000000000022 MG PO (20:29)
[2023-10-05] MEDS: BUDESONIDE 0.5 MG/2 ML AMPULE NEB IH (21:25)
[2023-10-06] VITALS (9 sets, daily range): BP systolic 113–138; BP diastolic 65–82; PULSE 96–113; TEMP 36.6–36.7; O2SAT 93–100
[2023-10-06] MEDS: MORPHINE SULFATE 4 MG/ML VIAL IV ×2 (00:56→06:24)
[2023-10-06] MEDS: CLINDAMYCIN PHOSPHATE/D5W 600 MG/50 ML PIGGYBACK 100 MG IV ×2 (03:04→08:19)
[2023-10-06 05:14] LABS: Basophils Percent Auto 0.3 % (0.2-2.0); Eosinophils Absolute Auto 0.2 10^3/uL (0.0-0.7); Eosinophils Percent Auto 1.9 % (0.9-7.0); Hematocrit 28.3 % (42.0-54.0); Hemoglobin 8.4 g/dL (14.0-18.0); Immature Granulocytes Abs Auto 0.17 10^3/uL (0.00-0.03); Immature Granulocytes Pct Auto 1.5 % (0.0-0.5); Lymphocytes Absolute Auto 1.5 10^3/uL (1.2-3.8); Lymphocytes Percent Auto 12.9 % (20.5-60.0); Mean Corpuscular HGB Conc 29.7 g/dL (29.9-35.2); Mean Corpuscular Hemoglobin 22.5 pg (25.9-34.0); Mean Corpuscular Volume 75.9 fL (80.0-94.0); Mean Platelet Volume 10.3 fL (9.5-13.5); Monocytes Absolute Auto 1.3 10^3/uL (0.3-0.8); Monocytes Percent Auto 10.9 % (1.7-12.0); Neutrophils Absolute Auto 8.4 10^3/uL (1.4-6.5); Neutrophils Percent Auto 72.5 % (43.0-75.0); Platelet Count 233 10^3/uL (150-450); Red Blood Count 3.73 10^6/uL (4.70-6.10); Red Cell Distribution Width 19.9 % (11.0-15.0); White Blood Count 11.6 10^3/uL (4.0-11.0)
[2023-10-06] MEDS: IPRATROPIUM/ALBUTEROL SULFATE 3 ML AMPUL.NEB IH ×2 (05:25→10:42)
[2023-10-06 05:33] LABS: Erythrocyte Sedimentation Rate >130 mm/hr (<=20)
[2023-10-06 05:38] LABS: Magnesium 1.6 mg/dL (1.8-2.4)
[2023-10-06 05:39] LABS: Alanine Aminotransferase 18 U/L (16-63); Albumin Globulin Ratio 0.5; Albumin Level 2.1 g/dL (3.4-5.0); Alkaline Phosphatase 133 U/L (46-116); Anion Gap 14.1; Aspartate Amino Transferase 20 U/L (15-37); BUN Creatinine Ratio 17.4; Bilirubin Total 0.3 mg/dL (0.2-1.0); Calcium 9.4 mg/dL (8.5-10.1); Carbon Dioxide 23.7 mmol/L (21.0-32.0); Chloride 103 mmol/L (98-107); Estimated GFR (African America 52 (>=60); Estimated GFR (Non-African Ame 42 (>=60); Globulin 4.3 g/dL; Glucose 91 mg/dL (74-106); Potassium 4.8 mmol/L (3.5-5.1); Sodium 136 mmol/L (136-145); Total Protein 6.4 g/dL (6.4-8.2)
[2023-10-06] MEDS: ROPINIROLE HCL 1 MG TABLET PO ×2 (06:20→13:21)
[2023-10-06] MEDS: MAGNESIUM OXIDE 400 MG TABLET PO ×2 (06:20→13:21)
[2023-10-06] MEDS: PREGABALIN 100 MG CAPSULE 200 MG PO ×2 (06:20→13:21)
[2023-10-06 07:28] LABS: Glucometer 105 mg/dL (74-106)
--- NOTE | 2023-10-06 08:03 | CM.NOTE ---
Rounds made with Dr. Bryant, discussed with pt about discharging today to [facility] for skilled therapy.
[2023-10-06] MEDS: ISOSORBIDE MONONITRATE 30 MG TAB.ER.24H PO (08:14)
[2023-10-06] MEDS: ACETAMINOPHEN 500 MG TABLET 1000 MG PO (08:14)
[2023-10-06] MEDS: SITAGLIPTIN PHOSPHATE 50 MG TABLET 100 MG PO (08:14)
[2023-10-06] MEDS: ATORVASTATIN CALCIUM 40 MG TABLET 80 MG PO (08:15)
[2023-10-06] MEDS: CLOPIDOGREL BISULFATE 75 MG TABLET PO (08:15)
[2023-10-06] MEDS: TIZANIDINE HCL 4 MG TABLET PO (08:15)
[2023-10-06] MEDS: ASPIRIN 81 MG TABLET.DR PO (08:16)
[2023-10-06] MEDS: METFORMIN HCL 500 MG TABLET PO (08:16)
[2023-10-06] MEDS: POTASSIUM CHLORIDE 10 MEQ ER TABLET 20 MEQ PO (08:16)
[2023-10-06] MEDS: GLIMEPIRIDE 2 MG TABLET PO (08:16)
[2023-10-06] MEDS: OXYCODONE HCL 5 MG TABLET 10 MG PO ×2 (08:17→13:20)
[2023-10-06] MEDS: FERROUS SULFATE 325 MG TABLET PO (08:17)
[2023-10-06] MEDS: TAMSULOSIN HCL 0.4 MG CAPSULE 0.400000000000000022 MG PO (08:18)
[2023-10-06] MEDS: ENSURE HP 237 ML LIQUID PO (08:18)
[2023-10-06] MEDS: JUVEN PACKET 1 PACKET PO (08:19)
[2023-10-06] MEDS: PROSTAT 15 GM PROTEIN/100 CAL 30 ML LIQUID PACKET PO (08:19)
--- NOTE | 2023-10-06 08:24 | P.DS_ITS ---
DS: Providers Provider Date of admission: 09/30/23 18:22 Primary care physician: Jenaro Valadez DO Consults: 09/30/23 16:55 Consult to Pharmacy Routine Consulting Provider: Reason for consultation: Please [facility] me when Med Rec is Updated Has provider been notified: No Occupational Therapy Eval and Treat Routine Reason for consultation: Only if needed for Rehab Has provider been notified: No Physical Therapy Eval and Treat Routine Reason for consultation: Eval and Treat Has provider been notified: No 10/01/23 09:54 Consult to Podiatry Routine Consulting Provider: Fredy Elias Reason for consultation: wel know to them DS: Diagnosis Discharge Diagnosis (1) Sepsis: (2) Wound of foot: (3) Acute osteomyelitis of right foot: (4) Ulcer of right foot with necrosis of bone: Plan Admission findings: Sinus tachycardia, respiratory distress, significant hypotension with blood pressure 91/65, acute kidney failure, leukocytosis, elevated ESR, elevated CRP, elevated alkaline phosphatase uncontrolled diabetes mellitus secondary to foot abscess, resulting in severe sepsis. Reviewed cultures from previous surgery, he has 3 infections, Pseudomonas, Enterobacter and strep. Repeat wound culture shows just Pseudomonas. We did review what he was taking at home. Verbally reported his doxycycline and linezolid. He is again discussed with podiatry, looks like surgery later this week for ultimate closure of wound. ...............So far cultures are growing Pseudomonas and Citrobacter, Klebsiella all sensitiv e to the levofloxacin. Repeat wound culture from second surgery shows just the Pseudomonas. Sensitivities pending Thrombocytopenia-likely related to the infection as outlined above-stable at discharge Acute renal failure-baseline creatinine of 1.69, 3.43 on admission and to be 202% above baseline. Back to baseline. At discharge Hypokalemia- stable at discharge -had 1 day of hyperkalemia and that has resolved Hyponatremia-down somewhat again today-stable at discharge Iron deficiency anemia-follow daily-improved today.-Stable at discharge Constipation-improved with lactulose at the time of discharge Poorly controlled diabetes mellitus-continue with insulin sliding scale, add metformin today-up somewhat today, likely related to the infection. Improving at discharge with addition of previous oral medications Severe hypomagnesemia-continue to monitor and supplement stable at discharge Coronary artery disease-stable COPD- stable at discharge with sputum showing yeast Hypertension-stable on discharge Severe protein calorie malnutrition-stable on discharge Admission status: Patient placed in the intensive care unit due to severe hypotension, sepsis severe. Medically necessary treatment will span 2 midnights. Inpatient status. Patient will be in need of rehab postoperatively. DS: Summary Hospital Course Hospital Course: Patient was seen and evaluated in the emergency room with increasing weakness, Admission findings: Sinus tachycardia, respiratory distress, significant hypotension with blood pressure 91/65, acute kidney failure Creatinine 3.43 with baseline last month of 1.7 = 202 above baseline) , leukocytosis, elevated ESR, elevated CRP, elevated alkaline phosphatase, uncontrolled diabetes mellitus secondary to foot abscess, resulting in severe sepsis. Reviewed cultures from previous surgery, he has 3 infections, Pseudomonas, Enterobacter and strep. Repeat cultures obtained from the emergency room and end up growing, Pseudomonas and Citrobacter, Klebsiella all sensitive to the levofloxacin. Repeat culture from foot surgery itself was growing just the Pseudomonas. Sensitivities are pending still today. He had previous surgery yesterday for partial amputation of his foot. Serial operative report. Patient is this morning with pain control. Patient has done well with the oxycodone 10 mg, every 4 hours as needed, the repeat culture from his first surgical intervention grew just the Pseudomonas but is still sensitive to the levofloxacin. He is stable for discharge today on oral pain medications and oral antibiotics. Medications see list. Follow-up with PCP at discharge Time Spent with Patient Time attestation: Total time spent providing and/or coordinating discharge services: Exam Constitutional Vital Signs, click to edit/add: Last Vital Signs Temp 97.9 F 10/06/23 04:00 Pulse 103 H 10/06/23 06:00 Resp 20 10/06/23 05:24 BP 138/80 10/06/23 04:00 Pulse Ox 97 10/06/23 05:24 O2 Del Method Room Air 10/06/23 05:24 Documenting provider has reviewed patient's vital signs: yes Common normals: no apparent distress Exam limitations: no altered mental status General appearance: comfortable (Seems comfortable) Chest Common normals: inspection of chest normal Respiratory Common normals: normal respiratory effort (Somewhat tachypneic), no use of accessory muscles and clear to auscultation bilaterally Cardio Common normals: regular rate and regular rhythm GI Common normals: Normal to inspection, nondistended, normoactive bowel sounds present Extremity Common normals: no clubbing, cyanosis or edema; abnormal to inspection (Large dressing on foot) DS: Data Data Completed and Pending Labs on day of discharge: Labs from last 24 hours 10/06/23 10/06/23 10/05/23 07:27 04:50 19:26 WBC 11.6 H RBC 3.73 L Hgb 8.4 L Hct 28.3 L MCV 75.9 L MCH 22.5 L MCHC 29.7 L RDW 19.9 H Plt Count 233 MPV 10.3 Neut % (Auto) 72.5 Lymph % (Auto) 12.9 L [place] % (Auto) 10.9 Eos % (Auto) 1.9 Baso % (Auto) 0.3 Neut # (Auto) 8.4 H Lymph # (Auto) 1.5 [place] # (Auto) 1.3 H Eos # (Auto) 0.2 Baso # (Auto) 0.0 Abs Immat Gran (auto) 0.17 H Imm/Tot Granulo (auto) 1.5 H ESR >130 H Sodium 136 Potassium 4.8 Chloride 103 Carbon Dioxide 23.7 Anion Gap 14.1 BUN 29.0 H Creatinine 1.67 H Est GFR ( Amer) 52 L Est GFR (Non-Af Amer) 42 L BUN/Creatinine Ratio 17.4 Glucose 91 Calcium 9.4 Magnesium 1.6 L Total Bilirubin 0.3 AST 20 ALT 18 Alkaline Phosphatase 133 H Total Protein 6.4 Albumin 2.1 L Globulin 4.3 Albumin/Globulin Ratio 0.5 POC Glucose 105 232 H 10/05/23 10/05/23 17:49 12:32 WBC RBC Hgb Hct MCV MCH MCHC RDW Plt Count MPV Neut % (Auto) Lymph % (Auto) [place] % (Auto) Eos % (Auto) Baso % (Auto) Neut # (Auto) Lymph # (Auto) [place] # (Auto) Eos # (Auto) Baso # (Auto) Abs Immat Gran (auto) Imm/Tot Granulo (auto) ESR Sodium Potassium Chloride Carbon Dioxide Anion Gap BUN Creatinine Est GFR ( Amer) Est GFR (Non-Af Amer) BUN/Creatinine Ratio Glucose Calcium Magnesium Total Bilirubin AST ALT Alkaline Phosphatase Total Protein Albumin Globulin Albumin/Globulin Ratio POC Glucose 308 H 113 H Preliminary micro results at discharge 10/02/23 12:00 Tissue Culture - Preliminary Foot Right Pseudomonas aeruginosa 10/02/23 12:00 - Preliminary Foot Right 09/30/23 16:09 Blood Culture Result 1 - Preliminary Blood NO GROWTH AT 36-48 HOURS. FINAL TO FOLLOW. 10/02/23 12:00 - Preliminary Foot Right 09/30/23 16:39 - Preliminary Blood NO GROWTH AT 36-48 HOURS. FINAL TO FOLLOW. Discharge Plan Discharge Disposition: Xfer SNF Condition: Critical Discharge Medications: No Action albuterol sulfate [ProAir HFA] 90 mcg/actuation HFA aerosol inhaler 2 inh inhalation Q4H PRN (Reason: shortness of breath or wheezing) budesonide-formoterol [Symbicort] 160-4.5 mcg/actuation HFA aerosol inhaler 2 inh INHALATION Q12H ropinirole 1 mg tablet 1 mg PO TID sildenafil 100 mg tablet 100 mg PO Q24H PRN (Reason: sexual activity) Spiriva Respimat 2.5 mcg/actuation mist 2 inh INHALATION Q24H tizanidine 4 mg tablet 4 mg PO DAILY doxycycline hyclate 100 mg capsule 100 mg PO BID 7 Days Qty: 14 0RF oxycodone-acetaminophen [Percocet] 5-325 mg tablet 1 tab PO Q6H PRN (Reason: pain) 7 Days Qty: 28 0RF aspirin 81 mg tablet,delayed release (DR/EC) 81 mg PO DAILY atorvastatin 80 mg tablet 80 mg PO DAILY clopidogrel 75 mg tablet 75 mg PO DAILY Jardiance 10 mg tablet 10 mg PO DAILY glimepiride 2 mg tablet 2 mg PO BID metformin 1,000 mg tablet 1,000 mg PO BID metoprolol tartrate 100 mg tablet 50 mg PO Q12H nitroglycerin 0.4 mg tablet, sublingual 0.4 mg sublingual Q5M PRN (Reason: chest pain) omeprazole 40 mg capsule,delayed release(DR/EC) 40 mg PO DAILY pregabalin 200 mg capsule 200 mg PO TID Januvia 100 mg tablet 100 mg PO DAILY valsartan-hydrochlorothiazide 160-12.5 mg tablet 1 tab PO DAILY tamsulosin [Flomax] 0.4 mg capsule 0.4 mg PO BID amitriptyline 100 mg tablet 100 mg PO BEDTIME Trulicity 1.5 mg/0.5 mL pen injector 1.5 mg SUBCUT QWEEK Ajovy Autoinjector 225 mg/1.5 mL auto-injector 225 mg SUBCUT .QMonth furosemide 40 mg tablet 40 mg PO DAILY isosorbide mononitrate 30 mg tablet extended release 24 hr 30 mg PO DAILY Nurtec ODT 75 mg tablet,disintegrating 75 mg PO DAILY doxycycline monohydrate 100 mg capsule 100 mg PO BID 14 Days Qty: 28 0RF tramadol 50 mg tablet 50 mg PO Q6H PRN (Reason: pain) Qty: 28 0RF hydrocodone-acetaminophen 5-325 mg tablet 1 tab PO Q6H PRN (Reason: pain) 7 Days Qty: 28 0RF hydrocodone-acetaminophen 5-325 mg tablet 1 tab PO Q8H PRN (Reason: pain) 7 Days Qty: 21 0RF Print Language: Hebrew Forms: Portal Instructions
[2023-10-06] MEDS: FLUCONAZOLE 100 MG TABLET 200 MG PO (09:02)
--- NOTE | 2023-10-06 09:40 | SWNOTE1 ---
Pt is able to be discharged today to [facility]. MILANA dejesus over dc med rec, dc summary, updated labs, and vitals to [facility].
--- NOTE | 2023-10-06 10:00 | CM.NOTE ---
2nd Notice of Important Message From Medicare discussed with pt, pt denies questions or concerns.
[2023-10-06] MEDS: BUDESONIDE 0.5 MG/2 ML AMPULE NEB IH (10:42)
--- NOTE | 2023-10-06 10:47 | CM.NOTE ---
Nurse called about pt's being very tearful about pt being transferred to skilled today. Entered room to speak with pt and regarding concerns. tearful and states He is everything to me I'm scared the infection will come back. Discussed this being the reason he had 2 surgical procedures and awaiting cultures to come back for continued antibiotic therapy that would cover the different strains of bacteria. also asking why wound vac would not be applied. Discussed about Dr. Bryant reaching out to Dr. Elias and they attempted placing vac in PACU without success, pt would discharge without wound vac, Offered to page Dr. Bryant or Dr. Elias to discuss plan of care moving forward, if she had questions that she felt were not being answered. denies need to speak with either physician, she voices I'm just scared. and pt also voice concern about pt not being offered a bed bath or any type of care to wash up since Monday, discussed all concerns with Patricia Tavares, Child Care Sitter of [facility] floor. Attempted to answer questions and give reassurance to pt and . states that it made her feel better just to talk with someone, she felt like she was being left out of his plan of care.
[2023-10-06 11:09] LABS: Glucometer 241 mg/dL (74-106)
--- NOTE | 2023-10-06 11:35 | SWNOTE1 ---
MILANA decided to set up stretcher transport at this time due to pt needing leg elevated at this time and trips was not sure they could accommodate with other people on the trips bus. MILANA set up [facility] and they will be here at 1:00. MILANA notified nursing and called over to [facility] and let someone by name of Ana Lilia know time. MILANA also sent email to Dee in regards to time. Pt is going to [facility].
[2023-10-06] MEDS: INSULIN ASPART 300 UNIT/3 ML PEN SUBQ (11:38)
--- NOTE | 2023-10-06 12:01 | PT.DAILY ---
Physical Therapy Daily Note PT Daily Note/Assess Start: 10/04/23 11:44 Freq: Status: Active Protocol: Document 10/06/23 11:57 VINAYEDWARD (Rec: 10/06/23 12:00 JENNIFER [id number]) Physical Therapy Daily Note/Assessment Time In/Time Out Time In 11:19 Time Out 11:40 Pain In Pain N/A Pain Out Pain N/A Subjective Subjective Pt supine upon arrival. Wishes to get washed up and changed into street clothes to prep for DC at 1300. Therapeutic Activity Time Therapeutic Activity Minutes (minutes) 15 Therapeutic Activity Units 1 Therapeutic Activity Treatment Bed Mobility Ability Moderate Assist Chair Transfer Ability Contact Guard Assist,Maximum Assist,1 Person Assist Therapeutic Activity Comments Pt performs supine>sit with ModA to advance R LE and upper body to EOB. While sitting EOB pt able to doff his gown. Washes the front of his upper body with set up needed. Assistance to wash his back and L foot. Pt able to mohinder his shirt with set up needed. Underwear and shorts are pulled on for him. Pt sit> stand to RW while maintaining NWB R LE with MaxA+1 and CGA. Periarea is washed with assistance while standing and his shorts and underwear pulled up for him. Returned to sitting EOB. Sit>supine SBA. 2pillows placed under R foot, call light is within reach and nursing is present. Total Physical Therapy Time Total Therapy Minutes 15 Total Physical Therapy Units 1 Summary Daily Note Summary Fair tolerance with session. Requires MaxA to maintain static standing balance while keeping R foot off ground.
--- NOTE | 2023-10-06 12:40 | P.PN_ITS ---
Progress Note: Subjective Subjective Interval history: Patient examined evaluated bedside resting comfortably. Dissipating discharge charge today. POD #1 s/p right transmetatarsal amputation, attempted application of wound VAC and presented to dry sterile dressing with short leg posterior splint. States he did have some increased pain overnight, although now controlled with p.o. oxycodone. States been compliant with nonweightbearing to the right lower extremity. He denies any other lower extremity complaints at time of exam. Denies any constitutional symptoms today. Exam Narrative Exam Narrative: RLE splint left CDI. No erythema edema or ecchymosis proximal to dressing. Compartment soft and compressible, no pain with calf or thigh compression. Constitutional Vital Signs, click to edit/add: Last Vital Signs Temp 98.0 F 10/06/23 08:00 Pulse 106 H 10/06/23 10:45 Resp 18 10/06/23 08:00 BP 138/82 10/06/23 08:00 Pulse Ox 96 10/06/23 10:45 O2 Del Method Room Air 10/06/23 10:45 Progress Note: Objective Labs Labs: Short CBC 10/06/23 Range/Units 04:50 WBC 11.6 H (4.0-11.0) 10^3/uL Hgb 8.4 L (14.0-18.0) g/dL Hct 28.3 L (42.0-54.0) % Plt Count 233 (150-450) 10^3/uL BMP 10/06/23 04:50 Sodium 136 Potassium 4.8 Chloride 103 Carbon Dioxide 23.7 BUN 29.0 H Creatinine 1.67 H Glucose 91 Calcium 9.4 Liver Function 10/06/23 Range/Units 04:50 Total Bilirubin 0.3 (0.2-1.0) mg/dL AST 20 (15-37) U/L ALT 18 (16-63) U/L Alkaline Phosphatase 133 H (46-116) U/L Albumin 2.1 L (3.4-5.0) g/dL Progress Note: A&P Assessment and Plan (1) Sepsis: (2) Wound of foot: (3) Acute osteomyelitis of right foot: (4) Ulcer of right foot with necrosis of bone: Plan Patient examined and evaluated. All findings discussed with patient all questions answered to be satisfaction. Patient overall progressing very well following right transmetatarsal amputation yesterday. I did attempt several times to apply incisional wound VAC, however is having difficulty obtaining an appropriate seal and continue to get alarms from the VAC machine, therefore I converted him to Betadine moistened Adaptic and dry sterile dressing with modified Byrd compression and short leg posterior splint. Will leave this clean dry and intact for 1 week evaluated at his first follow-up and potentially try to reinitiate the wound VAC at that point, which she is being discharged to SNF and they should be able to continue therapy there. Continue nonweightbearing to right lower extremity. He has been working with a walker and has a knee scooter Switch to IV Levaquin per IntraOp culture results Pending DC to SNF today. Stable to DC from podiatry perspective. Will follow- up in the wound care center 1 week from discharge. Call in the meantime with any questions or concerns. Urinary Catheter Management Urinary Catheter Management Urethral: Cath placed during this visit: yes Urethral indwelling: No Insertion date: 09/30/23 Insertion time: 17:16
--- NOTE | 2023-10-06 12:49 | PC.NURSE ---
Called in report to Layla hurley [facility] in [place] at [phone]
== END 2023-10-06 13:43 | DRG 853 ==
LOC: ER 18:11 → ICU 18:29 → MS 10-03 21:38
PROVIDERS: Physician Assistant; Podiatrist Foot & Ankle Surgery; Admitting Provider Family Medicine; Emergency Provider Emergency Medicine; PCP Family Medicine; Visit Provider Family Medicine
PROC: 0Y6M0Z9 Detachment at Right Foot, Partial 1st Ray, Open Approach (ICD-10-PCS; principal; 2023-10-02 14:00)
PROC: 0Y6M0Z5 Detachment at Right Foot, Complete 2nd Ray, Open Approach (ICD-10-PCS; principal; 2023-10-05 10:00)
DX: A41.59 Other Gram-negative sepsis (principal); E43 Unspecified severe protein-calorie malnutrition; N17.9 Acute kidney failure, unspecified; I13.0 Hypertensive heart and chronic kidney disease with heart failure and stage 1 through stage 4 chronic kidney disease, or unspecified chronic kidney disease; M86.171 Other acute osteomyelitis, right ankle and foot; N13.8 Other obstructive and reflux uropathy; L02.611 Cutaneous abscess of right foot; E87.1 Hypo-osmolality and hyponatremia; R65.20 Severe sepsis without septic shock; R70.0 Elevated erythrocyte sedimentation rate; R79.82 Elevated C-reactive protein (CRP); E11.65 Type 2 diabetes mellitus with hyperglycemia; E87.6 Hypokalemia; D50.9 Iron deficiency anemia, unspecified; E83.42 Hypomagnesemia; I25.10 Atherosclerotic heart disease of native coronary artery without angina pectoris; J44.9 Chronic obstructive pulmonary disease, unspecified; I50.9 Heart failure, unspecified; M19.90 Unspecified osteoarthritis, unspecified site; G25.81 Restless legs syndrome; K21.9 Gastro-esophageal reflux disease without esophagitis; E78.00 Pure hypercholesterolemia, unspecified; I25.2 Old myocardial infarction; F03.90 Unspecified dementia, unspecified severity, without behavioral disturbance, psychotic disturbance, mood disturbance, and anxiety; M10.9 Gout, unspecified; N18.9 Chronic kidney disease, unspecified; E11.22 Type 2 diabetes mellitus with diabetic chronic kidney disease; F17.210 Nicotine dependence, cigarettes, uncomplicated; R74.8 Abnormal levels of other serum enzymes; E11.42 Type 2 diabetes mellitus with diabetic polyneuropathy; E11.69 Type 2 diabetes mellitus with other specified complication; Z98.890 Other specified postprocedural states; Z95.5 Presence of coronary angioplasty implant and graft; Z98.49 Cataract extraction status, unspecified eye; Z88.0 Allergy status to penicillin; Z79.82 Long term (current) use of aspirin; Z79.899 Other long term (current) drug therapy; Z79.84 Long term (current) use of oral hypoglycemic drugs; N40.1 Benign prostatic hyperplasia with lower urinary tract symptoms; Z90.49 Acquired absence of other specified parts of digestive tract; E83.51 Hypocalcemia; I70.209 Unspecified atherosclerosis of native arteries of extremities, unspecified extremity; R06.03 Acute respiratory distress; E11.621 Type 2 diabetes mellitus with foot ulcer; L97.514 Non-pressure chronic ulcer of other part of right foot with necrosis of bone; R79.89 Other specified abnormal findings of blood chemistry; D69.6 Thrombocytopenia, unspecified; A41.52 Sepsis due to Pseudomonas; E11.628 Type 2 diabetes mellitus with other skin complications; B37.9 Candidiasis, unspecified; Z68.28 Body mass index [BMI] 28.0-28.9, adult
CPT/HCPCS: 36415; 51702; 71045; 73630; 80053; 81001; 82800; 82948; 83605; 83735; 83880; 84484; 85025; 85610; 85652; 86140; 87040; 87070; 87102; 87106; 87116; 87150; 87186; 87205; 87206; 88305; 93005; 94640; 94667; 94668; 94761; 96361; 96365; 96366; 96367; 96368; 96375; 96376; 97165; 97530; 97535; 97605; 99285; 99406; 99999; G0328; J1094; J1170; J2704; J3370; J3480

== ENCOUNTER 2023-10-13 11:13 | Outpatient (OUT) | payer OTHER, SELFPAY | END 2023-10-13 11:14 | disposition home or self-care (01) | LOC: WC 11:14 | PROVIDERS: PCP Family Medicine; Visit Provider Podiatrist Foot & Ankle Surgery | DX: E11.621 Type 2 diabetes mellitus with foot ulcer (principal); L97.419 Non-pressure chronic ulcer of right heel and midfoot with unspecified severity; L97.415 Non-pressure chronic ulcer of right heel and midfoot with muscle involvement without evidence of necrosis | CPT/HCPCS: G0463 ==

== ENCOUNTER 2023-10-19 09:00 | Outpatient (OUT) | payer OTHER, SELFPAY | END 2023-10-19 09:01 | disposition home or self-care (01) | LOC: WC 10-24 08:30 | PROVIDERS: PCP Family Medicine; Visit Provider Physician Assistant | DX: E11.621 Type 2 diabetes mellitus with foot ulcer (principal); L97.419 Non-pressure chronic ulcer of right heel and midfoot with unspecified severity; L97.415 Non-pressure chronic ulcer of right heel and midfoot with muscle involvement without evidence of necrosis; L97.528 Non-pressure chronic ulcer of other part of left foot with other specified severity | CPT/HCPCS: G0463 ==

== ENCOUNTER 2023-10-25 11:43 | Outpatient (OUT) | payer OTHER, SELFPAY | END 2023-10-25 11:44 | disposition home or self-care (01) | LOC: WC 11:43 | PROVIDERS: PCP Family Medicine; Visit Provider Podiatrist Foot & Ankle Surgery | DX: E11.621 Type 2 diabetes mellitus with foot ulcer (principal); L97.419 Non-pressure chronic ulcer of right heel and midfoot with unspecified severity; L97.415 Non-pressure chronic ulcer of right heel and midfoot with muscle involvement without evidence of necrosis; L97.528 Non-pressure chronic ulcer of other part of left foot with other specified severity | CPT/HCPCS: G0463 ==

== ENCOUNTER 2023-10-31 09:30 | Outpatient (OUT) | payer OTHER, SELFPAY | END 2023-10-31 09:31 | disposition home or self-care (01) | LOC: WC 11-01 09:09 | PROVIDERS: PCP Family Medicine; Visit Provider Podiatrist Foot & Ankle Surgery | DX: E11.621 Type 2 diabetes mellitus with foot ulcer (principal); L97.419 Non-pressure chronic ulcer of right heel and midfoot with unspecified severity; L97.415 Non-pressure chronic ulcer of right heel and midfoot with muscle involvement without evidence of necrosis; L97.528 Non-pressure chronic ulcer of other part of left foot with other specified severity | CPT/HCPCS: G0463 ==

== ENCOUNTER 2023-11-02 08:19 | Outpatient (OUT) | payer OTHER, SELFPAY ==
--- NOTE | 2023-11-02 08:27 | CT_ITS ---
[address] [address] Patient Name: MYRA FELIPE MRN: [id number] date: 1965 Sex: M Assigned Patient Location: CT Current Patient Location: CT Accession/Order Number: [id number] Exam Date: 11/02/2023 08:38 Report Date: 11/02/2023 09:54 At the request of: MIKE VELAZQUEZ Procedure: CT angio abd aorta runoff EXAMINATION: CT angio abd aorta runoff HISTORY: Limb Ischemia Of Right Lower Extremity With Gangrene COMPARISON: No relevant comparison available. TECHNIQUE: After obtaining the patient's consent, CT images of the abdomen, pelvis, and lower extremities were obtained without and with non-ionic intravenous contrast material. Multi-planar reformatted/3-D images were created to optimize visualization of vascular anatomy. Dose reduction techniques were achieved by using automated exposure control and/or adjustment of mA and/or kV according to patient size and/or use of iterative reconstruction technique. FINDINGS: AORTA: No aortic aneurysm. Moderate soft and calcific atherosclerotic plaque with approximately 40% narrowing of the distal abdominal aorta Celiac: No flow significant stenosis occlusion or aneurysm SMA: No flow significant stenosis occlusion or aneurysm Renals: Single right. Single left. No flow significant stenosis occlusion or aneurysm ZENA: High-grade stenosis at the origin ILIAC: Extensive diffuse calcific atherosclerosis. Stent identified in the left common and external iliac arteries. Occlusion of the left internal iliac. High-grade stenosis mid right internal iliac. Multisegment narrowing of the right external iliac up to 70% RIGHT LEG: Extensive soft and calcific atherosclerotic plaque. 60% narrowing in the common femoral. Occlusion of the femoral artery at the origin. Flow is identified in the profunda femoral and deep femoral. Collateral flow identified in the distal femoral popliteal and runoff arteries. Occlusion of the proximal anterior tibial artery LEFT LEG: Extensive atherosclerosis in the common femoral. Flow identified in the profunda femoral and deep femoral. High-grade stenosis throughout the right femoral artery estimated to be 90%. Flow identified in the popliteal, peroneal and posterior tibial arteries. There is occlusion of the anterior tibial artery LUNG BASES: Scattered pulmonary nodules the largest measuring 7.4 mm in the lingula, nonspecific LIVER: Punctate calcifications, prior granulomatous process BILIARY: No visible dilatation or calcification. PANCREAS: No lesion, fluid collection, ductal dilatation, or atrophy. SPLEEN: Punctate calcifications, prior granulomatous process ADRENALS: No mass or enlargement. KIDNEYS: Bilateral renal cortical atrophy. Left renal cortical hypodensity likely cysts. No hydronephrosis BOWEL/MESENTERY: Nonobstructive bowel gas pattern. Suture line from prior appendectomy. Nonobstructive bowel gas pattern RETROPERITONEUM: No mass or adenopathy. ABDOMINAL WALL: No mass or hernia. URINARY BLADDER: Moderate fluid distention PELVIC NODES: No adenopathy. PELVIC ORGANS: Normal sized prostate. Prostate calcifications BONES: Right forefoot amputation. 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 Small amount of collateral flow in the right popliteal and runoff arteries Electronically authenticated by: EVAN HODGES Date: 11/02/2023 09:54
== END 2023-11-02 08:20 | disposition home or self-care (01) ==
PROVIDERS: PCP Family Medicine; Visit Provider Student in an Organized Health Care Education/Training Program
DX: I70.261 Atherosclerosis of native arteries of extremities with gangrene, right leg (principal)
CPT/HCPCS: 75635; Q9966

== ENCOUNTER 2023-11-15 06:01 | Emergency (ER) | payer OTHER, SELFPAY ==
[2023-11-15 06:02] VITALS: BP 116/70; PULSE 86; TEMP 36.6; O2SAT 99; BMI 28.2
--- NOTE | 2023-11-15 06:17 | XR_ITS ---
The [address] [address] Patient Name: MYRA FELIPE MRN: [id number] date: 1965 Sex: M Assigned Patient Location: ER Current Patient Location: ED.MAIN Accession/Order Number: [id number] Exam Date: 11/15/2023 06:30 Report Date: 11/15/2023 07:06 At the request of: JACKY MARKER Procedure: XR foot RT min 3V PROCEDURE: XR foot RT min 3V COMPARISON: 10/02/2023 HISTORY: R/O osteo FINDINGS: BONES:Forefoot amputation along the proximal diaphysis of the first through fifth metatarsals. No acute fracture, dislocation, lytic or sclerotic changes. Degenerative change. Enthesopathic spurring of the calcaneus SOFT TISSUES:Forefoot soft tissue swelling EFFUSION:None visible. OTHER: Negative. XR/XR foot RT min 3V IMPRESSION: 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 Electronically authenticated by: EVAN HODGES Date: 11/15/2023 07:06
--- NOTE | 2023-11-15 06:18 | ED_ITS ---
HPI - Extremity Problem General Chief complaint: Extremity Problem, Nontraumatic Stated complaint: RT FOOT BLEED Time Seen by Provider: 11/15/23 06:06 Source: patient Mode of arrival: ambulance Limitations: no limitations History of Present Illness HPI Narrative: This 58-year-old male with a history of tobacco use, diabetes and peripheral vascular disease who had an amputation of his right foot in October subsequently had a vascular procedure ? fem/pop bypass at [facility] presents for evaluation of bleeding from the suture site on the lateral aspect of his right foot. The patient states that he had a follow-up vascular appointment at [facility] and the stitches were removed from his right foot. It was wrapped up and then started bleeding overnight. The surgical site on the right foot is black and the area on the medial and lateral aspect of the foot is macerated with an area of mild venous bleeding on the lateral aspect of the foot. He also has an incision in his left medial thigh where sutures were removed yesterday and Steri-Strips are present. He denies any fever. He denies any chest pain or shortness of breath. Related Data Home Medications ?Medication ?Instructions ?Recorded ?Confirmed aspirin 81 mg tablet,delayed 81 mg PO DAILY 03/03/23 10/01/23 release atorvastatin 80 mg tablet 80 mg PO DAILY 03/03/23 10/01/23 clopidogrel 75 mg tablet 75 mg PO DAILY 03/03/23 10/01/23 empagliflozin 10 mg tablet 10 mg PO DAILY 03/03/23 10/01/23 (Jardiance) glimepiride 2 mg tablet 2 mg PO BID 03/03/23 10/01/23 metformin 1,000 mg tablet 1,000 mg PO BID 03/03/23 10/01/23 nitroglycerin 0.4 mg sublingual 0.4 mg sublingual Q5M PRN chest 03/03/23 10/01/23 tablet pain omeprazole 40 mg capsule,delayed 40 mg PO DAILY 03/03/23 10/01/23 release pregabalin 200 mg capsule 200 mg PO TID 03/03/23 10/01/23 sitagliptin phosphate 100 mg 100 mg PO DAILY 03/03/23 10/01/23 tablet (Januvia) tamsulosin 0.4 mg capsule (Flomax) 0.4 mg PO BID 03/03/23 10/01/23 amitriptyline 100 mg tablet 100 mg PO BEDTIME 03/04/23 10/01/23 albuterol sulfate 90 mcg/actuation 2 inh inhalation Q4H PRN shortness 03/30/23 10/01/23 aerosol inhaler (ProAir HFA) of breath or wheezing dulaglutide 1.5 mg/0.5 mL 1.5 mg subcut QWEEK 08/03/23 10/01/23 subcutaneous pen injector (Trulicity) fremanezumab-vfrm 225 mg/1.5 mL 225 mg subcut .QMonth 08/03/23 10/01/23 subcutaneous auto-injector (Ajovy) isosorbide mononitrate 30 mg 30 mg PO DAILY 08/03/23 10/01/23 tablet,extended release 24 hr rimegepant 75 mg disintegrating 75 mg PO DAILY 08/03/23 10/01/23 tablet (Nurtec ODT) budesonide-formoterol HFA 160 2 inh inhalation Q12H 09/18/23 10/01/23 mcg-4.5 mcg/actuation aerosol inhaler (Symbicort) ropinirole 1 mg tablet 1 mg PO TID 09/18/23 10/01/23 sildenafil 100 mg tablet 100 mg PO Q24H PRN sexual activity 09/18/23 10/01/23 tiotropium bromide 2.5 2 inh inhalation Q24H 09/18/23 10/01/23 mcg/actuation mist for inhalation (Spiriva Respimat) tizanidine 4 mg tablet 4 mg PO DAILY 09/18/23 10/01/23 Previous Rx's ?Medication ?Instructions ?Recorded amino acids-protein hydrolysate 15 1 ea PO BID #2,880 mL 10/06/23 gram-100 kcal/30 mL oral liquid pkt (Pro-Stat Sugar Free) arginine 7 gram-glutam 7 1 packet PO BID #60 ea 10/06/23 gram-CaHMB 1.5 xriy-eykqy-at-min oral pwd pkt (Tenzin (with collagen)) ferrous sulfate 325 mg (65 mg 325 mg PO BID #60 tabs 10/06/23 iron) tablet fluconazole 100 mg tablet 200 mg (2 x 100 mg) PO QD #20 tabs 10/06/23 insulin aspart U-100 100 unit/mL 3 - 21 unit (0.03 - 0.21 mL) 10/06/23 (3 mL) subcutaneous pen (Novolog subcut ACHS #15 mL FlexPen U-100 Insulin aspart) levofloxacin 750 mg tablet 750 mg PO DAILY #30 tabs 10/06/23 magnesium oxide 400 mg (241.3 mg 400 mg PO TID #90 tabs 10/06/23 magnesium) tablet oxycodone 10 mg tablet 10 mg PO Q4H PRN pain #180 tabs 10/06/23 pregabalin 100 mg capsule 200 mg (2 x 100 mg) PO TID #180 10/06/23 caps Allergies Allergy/AdvReac Type Severity Reaction Status Date / Time Penicillins Allergy Severe Swelling Verified 11/15/23 06:06 of Lip/Tongue/Throat bee venom protein (honey bee) Allergy Swelling Verified 11/15/23 06:06 of Lip/Tongue/Throat latex Allergy Rash Verified 11/15/23 06:06 Review of Systems ROS Status of ROS 10 or more systems reviewed and unremark able except as noted in history and below [facility] Medical History (Updated 11/15/23 @ 06:47 by Fely Nguyen MD) Ulcer of right foot with necrosis of bone ?L97.514 - Non-pressure chronic ulcer of other part of right foot with necrosis of bone (ICD-10) Acute osteomyelitis of right foot ?M86.171 - Other acute osteomyelitis, right ankle and foot (ICD-10) Hypocalcemia ?E83.51 - Hypocalcemia (ICD-10) Hypomagnesemia ?E83.42 - Hypomagnesemia (ICD-10) Sepsis ?A41.9 - Sepsis, unspecified organism (ICD-10) Wound of foot ?S91.309A - Unspecified open wound, unspecified foot, initial encounter (ICD- 10) Abscess of right foot ?L02.611 - Cutaneous abscess of right foot (ICD-10) Chronic ulcer of right foot ?L97.519 - Non-pressure chronic ulcer of other part of right foot with unspecified severity (ICD-10) Anticoagulated ?Z79.01 - assisted (current) use of anticoagulants (ICD-10) Diabetic infection of right foot ?E11.628 - Type 2 diabetes mellitus with other skin complications (ICD-10) ?L08.9 - Local infection of the skin and subcutaneous tissue, unspecified (ICD-10) Puncture wound of right foot ?S91.331A - Puncture wound without foreign body, right foot, initial encounter (ICD-10) Cellulitis of foot, right ?L03.115 - Cellulitis of right lower limb (ICD-10) ROEL (acute kidney injury) ?N17.9 - Acute kidney failure, unspecified (ICD-10) Sepsis ?A41.9 - Sepsis, unspecified organism (ICD-10) CHF (congestive heart failure) ?I50.9 - Heart failure, unspecified (ICD-10) Migraine headache ?G43.909 - Migraine, unspecified, not intractable, without status migrainosus (ICD-10) Tobacco abuse ?Z72.0 - Tobacco use (ICD-10) DM2 (diabetes mellitus, type 2) ?E11.9 - Type 2 diabetes mellitus without complications (ICD-10) Carpal tunnel syndrome ?G56.00 - Carpal tunnel syndrome, unspecified upper limb (ICD-10) Back pain ?M54.9 - Dorsalgia, unspecified (ICD-10) Arthritis ?M19.90 - Unspecified osteoarthritis, unspecified site (ICD-10) Restless leg ?G25.81 - Restless legs syndrome (ICD-10) GERD (gastroesophageal reflux disease) ?K21.9 - Gastro-esophageal reflux disease without esophagitis (ICD-10) High cholesterol ?E78.00 - Pure hypercholesterolemia, unspecified (ICD-10) Myocardial infarction ?I21.9 - Acute myocardial infarction, unspecified (ICD-10) Coronary artery disease ?I25.10 - Atherosclerotic heart disease of [place] coronary artery without angina pectoris (ICD-10) BPH with obstruction/lower urinary tract symptoms ?N40.1 - Benign prostatic hyperplasia with lower urinary tract symptoms (ICD- 10) ?N13.8 - Other obstructive and reflux uropathy (ICD-10) Dementia ?F03.90 - Unspecified dementia, unspecified severity, without behavioral disturbance, psychotic disturbance, mood disturbance, and anxiety (ICD-10) CKD stage 4 due to type 2 diabetes mellitus ?E11.22 - Type 2 diabetes mellitus with diabetic chronic kidney disease (ICD- 10) ?N18.4 - Chronic kidney disease, stage 4 (severe) (ICD-10) Hyperlipidemia ?E78.5 - Hyperlipidemia, unspecified (ICD-10) Polyp of prostate with urinary obstruction ?N40.1 - Benign prostatic hyperplasia with lower urinary tract symptoms (ICD- 10) ?N13.8 - Other obstructive and reflux uropathy (ICD-10) Femoral artery stenosis ?I70.209 - Unspecified atherosclerosis of [place] arteries of extremities, unspecified extremity (ICD-10) Glaucoma ?H40.9 - Unspecified glaucoma (ICD-10) Carpal tunnel syndrome, bilateral ?G56.03 - Carpal tunnel syndrome, bilateral upper limbs (ICD-10) Gout ?M10.9 - Gout, unspecified (ICD-10) COPD (chronic obstructive pulmonary disease) ?J44.9 - Chronic obstructive pulmonary disease, unspecified (ICD-10) Neuropathy ?G62.9 - Polyneuropathy, unspecified (ICD-10) Chronic kidney disease ?N18.9 - Chronic kidney disease, unspecified (ICD-10) Hypertension ?I10 - Essential (primary) hypertension (ICD-10) Weakness ?R53.1 - Weakness (ICD-10) Surgical History (Updated 09/15/23 @ 10:12 by Shana George NP) H/O foot surgery (08/10/23) ?Z98.890 - Other specified postprocedural states (ICD-10) S/P TURP (04/13/23) ?Z90.79 - Acquired absence of other genital organ(s) (ICD-10) H/O foot surgery (08/05/23) ?Z98.890 - Other specified postprocedural states (ICD-10) History of heart artery stent ?Z95.5 - Presence of coronary angioplasty implant and graft (ICD-10) History of spinal surgery ?Z98.890 - Other specified postprocedural states (ICD-10) History of colonoscopy ?Z98.890 - Other specified postprocedural states (ICD-10) History of carpal tunnel release ?Z98.890 - Other specified postprocedural states (ICD-10) History of cataract extraction ?Z98.49 - Cataract extraction status, unspecified eye (ICD-10) History of appendectomy ?Z90.49 - Acquired absence of other specified parts of digestive tract (ICD- 10) History of heart artery stent ?Z95.5 - Presence of coronary angioplasty implant and graft (ICD-10) Family History (Updated 03/03/23 @ 18:46 by Darling Sharma RN) Mother Family history of CHF (congestive heart failure) Family history of diabetes mellitus Family history of hypertension Grandfather Family history of CHF (congestive heart failure) Family history of diabetes mellitus Family history of hypertension Family history of myocardial infarction Grandmother Family history of hypertension Social History (Updated 08/10/23 @ 09:23 by Mariely Fox) Within the past year, how often did you have a drink containing alcohol: never Score interpretation: A score less than 4 is consistent with normal alcohol consumption. Smoking status: Current every day smoker What tobacco products do you use: cigarettes Cigarettes per day: 20 Years smoked: 42 Smoking pack-years: 42.00 Non-prescribed substance use: denies use Previous occupational history: DISABLED Highest level of school completed/degree received: don't know Gender Identity: male Exam Narrative Exam Narrative: Vital signs and Nursing Notes reviewed: Patient is afebrile with a normal pulse, normal blood pressure, he is not hypoxic with pulse ox of 99% on room air General: Awake, alert, oriented, no acute distress, lying comfortably on the stretcher HEENT: Normocephalic atraumatic, mucous membranes are moist and pink, eyes are clear, normal conjunctiva, vision is grossly intact Chest: Lungs are clear to auscultation with good air entry, there is no wheezing rhonchi or rales appreciated no accessory muscle use, patient is speaking in complete sentences-no chest wall tenderness to palpation CVS: Regular rate and rhythm S1-S2, no murmurs rubs or gallops, pulses are brisk and equal bilaterally ABD: Soft, nondistended, nontender, no rebound guarding or rigidity, bowel sounds are normal, no pulsatile masses appreciated Extremities: Right foot shows evidence of amputation of all of the toes. There is a black eschar in the center of the foot as well as on the distal end of the amputated stump and lateral aspect of the foot where the skin is macerated and is bleeding. There is no appreciable odor or discharge. Skin: Normal in appearance without rash,pallor, petechiae or purpura Neuro: No focal deficits Constitutional Vital Signs, click to edit/add: Last Vital Signs Temp 97.8 F 11/15/23 06:02 Pulse 86 11/15/23 06:02 Resp 16 11/15/23 06:02 BP 116/70 11/15/23 06:02 Pulse Ox 99 11/15/23 06:02 O2 Del Method Room Air 11/15/23 06:02 Course Vital Signs Vital signs: Vital Signs Temperature 97.8 F 11/15/23 06:02 Pulse Rate 86 11/15/23 06:02 Respiratory Rate 16 11/15/23 06:02 Blood Pressure 116/70 11/15/23 06:02 Pulse Oximetry 99 11/15/23 06:02 Oxygen Delivery Method Room Air 11/15/23 06:02 Temperature 97.8 F 11/15/23 06:02 Pulse Rate 86 11/15/23 06:02 Respiratory Rate 16 11/15/23 06:02 Blood Pressure 116/70 11/15/23 06:02 Pulse Oximetry 99 11/15/23 06:02 Oxygen Delivery Method Room Air 11/15/23 06:02 MDM - Extremity (Nontraumatic) MDM Narrative Medical decision making narrative: This patient was discussed with Dr Trejo from podiatry who is familiar with him and will see him this morning after he arrives to the hospital. Lab Data Labs: Lab Results 11/15/23 Range/Units 06:25 WBC 9.5 (4.0-11.0) 10^3/uL RBC 3.41 L (4.70-6.10) 10^6/uL Hgb 8.5 L (14.0-18.0) g/dL Hct 27.6 L (42.0-54.0) % MCV 80.9 (80.0-94.0) fL MCH 24.9 L (25.9-34.0) pg MCHC 30.8 (29.9-35.2) g/dL RDW 20.6 H (11.0-15.0) % Plt Count 338 (150-450) 10^3/uL MPV 10.8 (9.5-13.5) fL Neut % (Auto) 66.7 (43.0-75.0) % Lymph % (Auto) 14.1 L (20.5-60.0) % [place] % (Auto) 11.9 (1.7-12.0) % Eos % (Auto) 5.9 (0.9-7.0) % Baso % (Auto) 0.8 (0.2-2.0) % Neut # (Auto) 6.4 (1.4-6.5) 10^3/uL Lymph # (Auto) 1.3 (1.2-3.8) 10^3/uL [place] # (Auto) 1.1 H (0.3-0.8) 10^3/uL Eos # (Auto) 0.6 (0.0-0.7) 10^3/uL Baso # (Auto) 0.1 (0.0-0.1) 10^3/uL Abs Immat Gran (auto) 0.06 H (0.00-0.03) 10^3/uL Imm/Tot Granulo (auto) 0.6 H (0.0-0.5) % Discharge Plan Discharge Chief Complaint: Extremity Problem, Nontraumatic Clinical Impression: Post-op bleeding Patient Disposition: Still a Patient Prescriptions / Home Meds: No Action albuterol sulfate [ProAir HFA] 90 mcg/actuation HFA aerosol inhaler 2 inh inhalation Q4H PRN (Reason: shortness of breath or wheezing) budesonide-formoterol [Symbicort] 160-4.5 mcg/actuation HFA aerosol inhaler 2 inh INHALATION Q12H ropinirole 1 mg tablet 1 mg PO TID sildenafil 100 mg tablet 100 mg PO Q24H PRN (Reason: sexual activity) Spiriva Respimat 2.5 mcg/actuation mist 2 inh INHALATION Q24H tizanidine 4 mg tablet 4 mg PO DAILY aspirin 81 mg tablet,delayed release (DR/EC) 81 mg PO DAILY atorvastatin 80 mg tablet 80 mg PO DAILY clopidogrel 75 mg tablet 75 mg PO DAILY Jardiance 10 mg tablet 10 mg PO DAILY glimepiride 2 mg tablet 2 mg PO BID metformin 1,000 mg tablet 1,000 mg PO BID nitroglycerin 0.4 mg tablet, sublingual 0.4 mg sublingual Q5M PRN (Reason: chest pain) omeprazole 40 mg capsule,delayed release(DR/EC) 40 mg PO DAILY pregabalin 200 mg capsule 200 mg PO TID Januvia 100 mg tablet 100 mg PO DAILY tamsulosin [Flomax] 0.4 mg capsule 0.4 mg PO BID amitriptyline 100 mg tablet 100 mg PO BEDTIME Trulicity 1.5 mg/0.5 mL pen injector 1.5 mg SUBCUT QWEEK Ajovy Autoinjector 225 mg/1.5 mL auto-injector 225 mg SUBCUT .QMonth isosorbide mononitrate 30 mg tablet extended release 24 hr 30 mg PO DAILY Nurtec ODT 75 mg tablet,disintegrating 75 mg PO DAILY fluconazole 100 mg Tablet 200 mg PO QD Qty: 20 0RF magnesium oxide 400 mg (241.3 mg magnesium) Tablet 400 mg PO TID Qty: 90 11RF ferrous sulfate 325 mg (65 mg iron) Tablet 325 mg PO BID Qty: 60 11RF insulin aspart U-100 [Novolog FlexPen U-100 Insulin] 100 unit/mL (3 mL) Insulin Pen 3 - 21 unit subcut ACHS Qty: 15 11RF pregabalin 100 mg Capsule 200 mg PO TID Qty: 180 2RF Pro-Stat Sugar Free 15 gram- 100 kcal/30 mL Liquid In Packet 1 ea PO BID Qty: 2880 12RF Tenzin (with collagen) 7-7-1.5 gram Powder In Packet 1 packet PO BID Qty: 60 11RF levofloxacin 750 mg tablet 750 mg PO DAILY Qty: 30 0RF oxycodone 10 mg tablet 10 mg PO Q4H PRN (Reason: pain) Qty: 180 0RF Print Language: [place] Referrals: Jenaro Valadez DO [Primary Care Provider] - 1 week
--- OUTSIDE RECORDS SUMMARY | 2023-11-15 06:20 | XMS_ITS | CCD ---
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 Name Role Phone Jenaro Lynch Unavailable Unavailable [...] Care Provider MD Nancy Wilson Emergency Provider [phone] DO Jenaro Lynch Primary Care Provider [phone] MD Nancy Wilson Emergency Provider JERARDO Mclaughlin Attending Provider JERARDO Mclaughlin Referring Provider [phone] LINDSEY Elias Attending Provider Curt, Paula Hooker Attending Unavailable Curt, Paula Hooker Admitting Unavailable Highlander, Paula Hooker Attending Unavailable Highlander, Paula Hooker Admitting Unavailable Kuns, Jenaro Primary Care Unavailable LowShana serrano Referring Unavailable Shana Mclaughlin Attending Unavailable Lowmaggie, Shana Admitting Unavailable Kuns, Jenaro Primary Care Unavailable WilsonNancy Attending Unavailable Wilson, Nancy Admitting Unavailable Kuns, Jenaro Primary Care Unavailable Highlander, Paula Hooker Attending Unavailable Highlander, Paula Hooker Admitting Unavailable Kuns, DO Eason Primary Care Provider Jenaro Lynch DO Primary Care Provider [phone] ROWE, Yeyo R Attending Unavailable ROWE, Yeyo R Attending Unavailable ROWE, Yeyo R Attending Unavailable ROWE, Yeyo R Attending Unavailable ROWE, Yeyo R Attending Unavailable NONE, XXXX Referring Unavailable Simon, Mohamed F. Admitting Unavailable Simon, Mohamed F. Attending Unavailable ROWE, Yeyo R Attending Unavailable ROWE, Yeyo R Referring Unavailable ROWE, Yeyo R Admitting Unavailable ROWE, Yeyo R Attending Unavailable ROWE, Yeyo R Attending Unavailable ROWE, Yeyo R Attending Unavailable ROWE, Yeyo R Referring Unavailable ROWE, Yeyo R Admitting Unavailable ROWE, Yeyo R Attending Unavailable Simon, Mohamed F. Admitting Unavailable Simon, Mohamed F. Attending Unavailable Simon, Mohamed F. Referring Unavailable ROWE, Yeyo R Referring Unavailable ROWE, Yeyo R Attending Unavailable ROWE, Yeyo R Attending Unavailable ROWE, Yeyo R Attending Unavailable ROWE, Yeyo R Attending Unavailable ROWE, Yeyo R Attending Unavailable ROWE, Yeyo R Attending Unavailable RAULITO INMAN Attending Unavailable KUNSJENARO Primary Care Unavailable ROWE, Yeyo R Attending Unavailable Simon, Mohamed F. Referring Unavailable Simon, Mohamed F. Attending Unavailable Simon, Mohamed F. Admitting Unavailable SIMON, PADMINI F Attending Unavailable HIGHLANDER, PAULA Hooker Referring Unavailable SIMON, MOHAMED F Admitting Unavailable SIMON, MOHAMED F Attending Unavailable ONLY), [facility] (INPATIENT Consult ing Unavailable DERISO, ROSIE C Referring Unavailable Allergies Allergy Classification Reported Allergen(s) Allergy Type Date of Onset Reaction(s) Facility (20 sources) natural latex rubber; 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: [Latex] Allergy to substance (finding) 03-27-20 23 Itching (finding), Eruption of skin (disorder) [facility] (20 sources) Penicillins; 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: [Penicillins] Allergy to drug (finding) 11-05-19 14 Anaphylactoid reaction (disorder) [facility] (20 sources) Acetaminophen / oxyCODONE Drug Allergy vomiting [facility] Other (20 sources) tamsulosin; 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: [TAMSULOSIN] Drug Allergy 07-14-19 21 hives [facility] (20 sources) PENICIILIN Propensity to adverse reactions SWELLING OF AIRWAY [facility] Other (7 sources) Acetaminophen; 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: [acetaminophen] Drug Allergy 07-14-19 21 Vomiting [facility] (8 sources) oxyCODONE; 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: [Oxycodone] Drug Allergy 02-08-20 17 Vomiting [facility] (1 source) Penicillins Drug allergy (disorder) 09-23-19 14 [facility] Rep[facility] (16 sources) Penicillin G; 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: [penicillin G benzathine] Drug Allergy [facility] (8 sources) Penicillin Drug Allergy anaphylaxis [facility] Other (1 source) Penicillins Drug allergy (disorder) 07-31-19 24 [facility] Repository (1 source) tamsulosin Drug Allergy 07-31-19 24 [facility] Repository (1 source) Latex Allergy to substance 03-27-20 23 Unknown [facility] (1 source) Penicillins Drug Allergy 03-27-20 23 Anaphylaxis [facility] Work Phone: (2 sources) Isosorbide; 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: [ISOSORBIDE MONONITRATE] Drug Allergy 08-05-19 15 [facility] Medications Current Medications Medication Drug Class(es) Dates Sig (Normalized) Sig (Original) acetaminophen 500 mg oral tablet (1 source) acetaminophen (Tylenol) 500 mg tablet Take by mouth every 8 hours if needed for mild pain (1 - 3). Active acetaminophen 325 mg / HYDROcodone bitartrate 5 mg oral tablet (20 sources) Opioid Agonist Start: 07-26-2023 take 1 tablet by mouth four times daily as needed Hydrocodone-Acetami nophen Active TAB PO July 26, 2023 1:00am [...] 1:00am July 14, 2020 12:39pm Start: 10-10-2014 [place] 325 mg-5 mg oral tablet 1 tab(s), Oral, q4hr for pain, 12 tab(s), Refill(s) 0 Start Date: 10/10/14 Status: Ordered acetaminophen 325 mg / oxyCODONE hydrochloride 5 mg oral tablet (1 source) Opioid Agonist Start: 09-22-2023 take 1 tablet by mouth every four hours as needed oxyCODONE-acetaminophen (Percocet) 5-325 mg tablet Take 1 tablet by mouth every 4 hours if needed. 09/22/2023 Active ProAir (20 sources) beta2-Adrene rgic Agonist Start: 11-23-2022 ProAir HFA Inhalation, q6hr Start Date: 11/23/22 Status: [...] Inhalation Q4H PRN PRN Dec, Active take 2 puff(s) by in halation twice daily albuterol 90 mcg/actuation inhaler Inhale 2 puffs 2 times a day. Active take 1-2 puff(s) by mouth every [...] 0 Ordered: 26-Oct-2021 DO Active amitriptyline hydrochloride 100 mg oral tablet (20 sources) Tricyclic Antidepressant Start: 07-12-2023 take 25 mg by mouth once daily Amitriptyline Active 25 MG PO Daily July 12, 2023 1:00am Start: 11-23-2022 take 1 tablet by kalie once daily amitriptyline (Elavil) 100 mg tablet Take 1 tablet (100 mg) by mouth once daily. 09/03/2023 Active take 0.5-1 tablets b y mouth once daily at bedtime Amitriptyline HCl 25 MG 1/2-1 tab Orally QHS Active ascorbic acid 500 mg oral tablet (1 source) Vitamin C take 1 tablet by mouth once daily ascorbic acid (Vitamin C) 500 mg tablet Take 1 tablet (500 mg) by mouth once daily. Active aspirin 81 mg delayed release oral tablet (20 sources) Platelet Aggregation Inhibitor, Nonsteroidal Anti-inflammatory Drug Start: 06-16-2023 take 1 tablet by mouth once daily aspirin 81 mg EC tablet Indications: Hyperlipidemia, unspecified TAKE 1 TABLET BY MOUTH EVERY DAY 90 tablet 3 06/16/2023 Active Start: 06-22-2021 take 1 tablet by kalie th once daily Aspirin Low Dose 81 MG Oral Tablet Delayed Release TAKE 1 TABLET DAILY. Quantity: 90 Refills: 3 Ordered: 26-Oct-2021 Raulito Inman MD Start : 22-Jun-2021 Active fill at patients request Start: 04-01-2018 take 81 mg by mouth once daily Aspirin Active 81 MG PO Daily April 01, 2018 12:00am Aspirin 81 mg Tab-EC (14 sources) Start: 07-10-2014 Aspirin 81 mg Tab-EC [...] formoterol fumarate 0.0045 mg/actuat metered dose inhaler (4 sources) Corticosteroid, beta2-Adrenergic Agonist Start: 07-12-2023 Budesonide-Formoterol [...] mL by sub cutaneous injection every week DULoxetine 60 mg delayed release oral capsule (1 source) Serotonin and Norepinephrine Reuptake Inhibitor take 1 capsule by mouth once daily DULoxetine (Cymbalta) [address] capsule Take 1 capsule (60 mg) by mouth once daily. Do not crush or chew. Active empagliflozin 10 mg oral tablet (20 sources) Sodium-Glucose Cotransporter 2 Inhibitor Start: 11-24-19 take 1 mg by mouth once daily in the morning Jardiance 10 mg oral tablet mg tab(s), Oral, qAM Start Date: 11/23/22 Status: Ordered Start: 09-28-2020 take 1 tablet by kalie th every twenty-four hours Jardiance 25 MG 1 tablet Orally Once a day for 30 day(s) Sep, Active famotidine 40 mg oral tablet (14 sources) Histamine-2 Receptor Antagonist Start: 07-10-2014 take 1 tablet by mouth once daily at bedtime famotidine 40 mg Tab 40 mg = 1 tab(s), Oral, Once a day (at bedtime), # 30 tab(s), Refills(s) 0 Start Date: 07/10/14 Status: Ordered fenofibrate 160 mg oral tablet (14 sources) Peroxisome Proliferator Receptor alpha Agonist Start: 10-31-2013 take 1 tablet by mouth once daily fenofibrate 160 mg oral tablet 160 mg = 1 tab(s), Oral, Daily, Refills(s) 0 Start Date: 10/31/13 Status: Ordered 24 hr ferrous sulfate 142 mg extended release oral tablet (10 sources) Start: 07-26-2023 Ferrous Sulfat e (Slow Fe) 137 mg (45 mg iron) tablet extended release Active MG PO July 26, 2023 1:00am Start: 04-06-2023 take 1 tablet by kalie th three times weekly Slow Fe 142 (45 Fe) MG 1 tablet Orally Three times a Week for 30 day(s) Apr, Active take 1 tablet by mouth once suzanne y ferrous sulfate, 325 mg ferrous sulfate, tablet Take 1 tablet by mouth once daily. Active 1.5 ml fremanezumab-vfrm 150 mg/ml auto-injector (5 sources) Start: 07-18-2023 Ajovy Autoinje ctor 225 mg/1.5 mL auto-injector Inject 1 Pen (225 mg) under the skin every 30 (thirty) days. 07/18/2023 Active Start: 07-12-2023 Fremanezumab-V frm (Ajovy Autoinjector) 225 mg/1.5 mL auto-injector Active 225 MG SUBCUT Q30D July 12, 2023 1:00am furosemide 40 mg oral tablet (10 sources) Loop Diuretic Start: 07-26-2023 End: 07-25-2024 take 1 tablet by mouth once daily furosemide (Lasix) 40 mg tablet Indications: Localized edema Take 1 tablet (40 mg) by mouth once daily. 90 tablet 1 07/26/2023 07/25/2024 Active Start: 07-12-2023 take 1 tablet by kalie th once daily in the morning Furosemide (Lasix) 20 mg tablet Active 20 MG PO Every morning 5 July 124 1:00am Start: 03-13-2019 End: 07-14-2020 take 20 [...] Diuretic, Angiotensin 2 Receptor Saida Start: 11-23-2022 End: 10-24-2023 take 1 tablet by mouth once daily [...] needed Orally Three times a day Active insulin lispro 100 unt/ml injectable solution (1 source) Insulin Analog insulin lispro (HumaLOG) 100 unit/mL injection Inject under the skin. Take as directed per insulin instructions. Active 24 hr isosorbide mononitrate 30 mg extended release oral tablet (20 sources) Nitrate Vasodilator Start: take 1 tablet by mouth once daily isosorbide mononitrate ER (Imdur) 30 mg 24 hr tablet Indications: Other forms of angina pectoris (CMS-HCC) TAKE 1 TABLET BY MOUTH EVERY DAY DIRECTED 30 tablet 6 07/28/2023 Active Start: 01-11-2023 take 1 tablet by kalie th once daily Isosorbide Mononitrate ER 30 MG Oral Tablet Extended Release 24 Hour TAKE 1 TABLET DAILY DIRECTED. Quantity: 30 Refills: 6 Ordered: 11-Jan-2023 Julius Feldman TERELL Dolores Start : 11-Jan-2023 Active new start Start: 07-11-2014 take 1 tablet by kalie th once daily in the morning Imdur 60 mg ER Tab 60 mg = 1 tab(s), Oral, qAM, # 30 tab(s), Refills(s) 0 Start Date: 07/11/14 Status: Ordered loperamide hydrochloride 2 mg oral tablet (1 source) Opioid Agonist take 1 tablet by mouth four times daily as needed for diarrhea loperamide (Imodium A-D) 2 mg tablet Take 1 tablet (2 mg) by mouth 4 times a day as needed for diarrhea. Active magnesium oxide 400 mg oral tablet (1 source) magnesium oxide (Mag-Ox) 400 mg tablet 1 tablet (400 mg) 3 times a day. Active metFORMIN hydrochloride 1000 mg oral tablet (20 sources) Biguanide Start: 06-06-2012 take 1000 mg by mouth twice daily metformin 1,000 mg, Oral, BID, Refills(s) 0 Start Date: 06/06/12 Status: Ordered take 1 tablet by kalie th every twelve hours metFORMIN (Glucophage) 1,000 mg tablet T valeriano 1 tablet (1,000 mg) by mouth every 12 hours. Active metoprolol tartrate 100 mg oral tablet (20 sources) beta-Adrenergic Saida Start: 04-01-2018 End: 09-27-2023 take 50 mg by mouth twice daily Metoprolol Tartrate Active 50 MG PO Twice daily 180 September 27, 2023 3:55pm Start: 04-01-2018 take 100 mg by mouth twice daily Metoprolol Tartrate Active 100 MG PO Twice daily April 01, 2018 12:00am Start: 01-24-2011 metoprolol 100 mg, BID, Refills(s) 0 Start Date: 01/24/11 Status: Ordered End: 10-24-2023 take 0.5 tablet by mouth twice daily metoprolol tartrate (Lopressor) 100 mg tablet Take 0.5 tablets (50 mg) by mouth 2 times a day. 10/24/2023 Discontinued (Therapy completed) nitroglycerin 0.4 mg sublingual tablet (20 sources) Nitrate Vasodilator Start: 11-03-2021 nitroglyce rin (Nitrostat) 0.[address] under the tongue. 11/03/2021 Active Start: 07-10-2014 End: 03-13-2019 NitroStat 0.4 mg Tab 0.4 mg = 1 tab(s), SubLingual, q5min, PRN for chest pain, # 100 tab(s), Refills(s) 0 Start Date: 07/10/14 Status: Ordered Nitroglycerin 0. 4 MG as directed Sublingual Active omeprazole 40 mg delayed release oral capsule (20 sources) Proton Pump Inhibitor Start: 11-23-2022 Prilosec Oral, Daily Start Date: 11/23/22 Status: Ordered Start: 07-24-2019 End: 07-26-2023 take 40 mg by mouth once daily Omeprazole Discontinued 40 MG PO Daily July 24, 2019 1:00am July 26, 2023 5:38pm Start: 07-24-2019 take 20 mg by mouth once daily Omeprazole Active 20 MG PO Daily July 24, 2019 1:00am Start: 01-02-2018 End: 10-24-2023 take 40 mg by mouth once daily Omeprazole Active 40 MG PO Daily September 27, 2023 3:54pm take 2 tablets by mo ut twice daily before mealtime omeprazole OTC (PriLOSEC OTC) 20 mg EC tablet Take 2 tablets (40 mg) by mouth 2 times a day before meals. Do not crush, chew, or split. Active pregabalin 200 mg oral capsule (20 sources) Start: 01-24-2011 End: 09-28-2023 take 200 mg by mouth three times [...] ranolazine 1000 mg extended release oral tablet (19 sources) Anti-anginal Start: 07-10-2014 End: 07-14-2020 take 1 tablet by mouth twice daily Ranexa 1000 mg oral tablet, extended release 1,000 mg = 1 tab(s), Oral, BID, # 60 tab(s), Refills(s) 0 Start Date: 07/10/14 Status: Ordered rimegepant 75 mg disintegrating oral tablet (4 sources) Start: 07-12-2023 take 1 tablet by mouth once daily Rimegepant (Nurtec Odt) 75 mg tablet,disinteg rating Active 75 MG PO Daily July 12, 2023 1:00am rOPINIRole 1 mg oral tablet (20 sources) Nonergot Dopamine Agonist Start: 01-24-2011 End: 09-07-2023 take 1 mg by mouth three times [...] Ordered tamsulosin hydrochloride 0.4 mg oral capsule (15 sources) alpha-Adrenergic Saida Start: 06-26-2023 take 1 capsule by mouth twice daily tamsulosin 0.4 mg Cap 0.4 mg = 1 cap(s), Oral, BID, # 60 cap(s), Refills(s) 11, Pharmacy: [facility]/pharmacy #[id number], 182, cm, 06/02/23 11:00:00 EST, Height/Length Dosing, 94, kg, 06/02/23 11:00:00 EST, Weight Dosing Start Date: 06/26/23 Status: Ordered Start: 02-14-2023 take 1 capsule by mo uth twice daily tamsulosin 0.4 mg Cap 0.4 mg = 1 cap(s), Oral, BID, # 60 cap(s), Refills(s) 3, Pharmacy: [facility]/pharmacy #[id number], 182, cm, 02/14/23 8:58:00 EDT, Height/Length Dosing, 94, kg, 01/30/23 10:24:00 EDT, Weight Dosing Start Date: 02/14/23 Status: Ordered take 1 capsule by [facility] once daily Tamsulosin HCl - 0.4 MG Oral Capsule TAKE 1 CAPSULE Daily Quantity: 0 Refills: 0 Ordered: 15-Feb-2023 DO Active TENS Unit (20 sources) Start: 01-27-2014 Start: 01-27-2014 TENS Unit as d irected Use as directed. Jan, Active Tiotropium [place] (Spiriva With Handihaler) 18 mcg capsule, w/inhalation device (4 sources) Start: 07-12-2023 take 1 capsule by inhalation once daily Tiotropium [place] (Spiriva With Handihaler) 18 mcg capsule, w/inhalation device Active 1 CAP INHALATION Daily July 12, 2023 1:00am puncture 1 cap using device; one dose = 2 inhalations Start: 07-12-2023 take 1 capsule by in halation once daily Tiotropium [place] (Spiriva With Handihaler) 18 mcg capsule, w/inhalation [...] Ordered Start: 07-04-2022 take 1 tablet by [facility] every twelve hours tiZANidine HCl 4 MG 1 tablet as needed Orally Twice a day Jun, Active take 2 tablets by [facility] at bedtime tiZANidine HCl - 4 MG Oral Tablet TAKE 2 TABLETS AT BEDTIME. Quantity: 0 Refills: 0 Ordered: 11-Jan-2023 DO Active traMADol hydrochloride 50 mg oral tablet (17 sources) Opioid Agonist Start: 07-26-2023 take 1 [...] 13, 2019 12:00am July 24, 2019 2:52pm ubrogepant 100 mg oral table t (1 source) ubrogepant (Ubre lvy) 100 mg tablet tablet Take 1 tablet (100 mg) by mouth if needed. Active Completed/Discontinued Medications Medication Drug Class(es) Dates Sig (Normalized) Sig (Original) alogliptin 25 mg oral tablet (10 sources) Start: 07-14-2020 End: 07-12-2023 take 1 [...] 2020 9:18am ALPRAZolam 0.5 mg oral tablet (16 sources) Benzodiazepine Start: 08-08-2019 End: 07-14-2020 take 1 tablet by mouth once daily Alprazolam (Xanax) 0.5 mg Tablet Discontinued 0.5 MG PO Daily August 08, 2019 1:00am July 14, 2020 12:39pm Start: 03-13-2019 End: 07-24-2019 take 2 tablets by mouth once daily Alprazolam (Xanax) 0.5 mg Tablet Discontinued 1 MG PO Daily March 13, 2019 12:00am July 24, 2019 2:52pm End: 10-24-2023 take 1 tablet by mouth three times daily as needed ALPRAZolam (Xanax) 0.5 mg tablet Take 1 tablet (0.5 mg) by mouth 3 times a day as needed. 10/24/2023 Discontinued (Therapy completed) amLODIPine 10 mg oral tablet (19 sources) Dihydropyridine Calcium Channel Saida Start: 04-01-2018 End: 07-24-2019 take 5 mg by mouth once daily Amlodipine Discontinued 5 MG PO Daily April 01, 2018 12:00am July 24, 2019 2:52pm Start: 10-31-2013 take 1 tablet by kalie th once daily Norvasc 5 mg Tab 5 mg = 1 tab(s), Oral, Daily, Refills(s) 0 Start Date: 10/31/13 Status: Ordered busPIRone hydrochloride 10 mg oral tablet (5 sources) Start: 03-13-2019 End: 07-24-2019 take 10 mg by mouth twice daily Buspirone Discontinued 10 MG PO Twice daily March 13, 2019 12:00am July 24, 2019 2:52pm dicyclomine hydrochloride 20 mg oral tablet (14 sources) Anticholinergic Start: 05-22-2020 End: 07-12-2023 take 20 mg by mouth three times daily Dicyclomine Discontinued 20 MG PO Three times daily July 14, 2020 1:00am July 12, 2023 6:30pm doxycycline hyclate 100 mg oral capsule (12 sources) Tetracycline-class Drug Start: 01-30-2023 take 1 capsule by mouth once daily doxycycline hyclate 100 mg Cap 100 mg = 1 cap(s), Oral, Daily, Take 1 pill the day before the procedure and 1 pill after the procedure, # 2 cap(s), Refills(s) 0, Pharmacy: [facility]/pharmacy #[id number], 182, cm, 01/30/23 10:24:00 EDT, Height/Length Dosing, 94, kg, 01/30/23 10:24:00 EDT, Weight Dosing Start Date: 01/30/23 Status: Ordered hydroCHLOROthiazide 25 mg / losartan potassium 100 mg oral tablet (5 sources) Thiazide Diuretic, Angiotensin 2 Receptor Saida Start: 04-01-2018 End: 03-13-2019 take 1 tablet by mouth once daily Losartan-Hydroch lorothiazide Discontinued 1 TAB PO Daily April 01, 2018 12:00am March 13, 2019 8:00am hydroCHLOROthiazide 12.5 mg / olmesartan medoxomil 40 mg oral tablet (5 sources) Thiazide Diuretic, Angiotensin 2 Receptor Saida Start: 07-24-2019 End: 07-14-2020 take 1 tablet by mouth once daily Olmesartan-[place] chlorothiazide (Benicar Hct) 40-12.5 mg Tablet Discontinued 1 TAB PO Daily July 24, 2019 1:00am July 14, 2020 12:39pm Ketorolac (20 sources) Nonsteroidal Anti-inflammatory Drug, Cyclooxygenase Inhibitor Start: 01-15-2018 Toradol per 15 mg Jan, 2 cc Start: 01-05-2018 Toradol per 15 mg Jan, 2 cc Start: 01-04-2018 Toradol per 15 mg Jan, 2 cc lansoprazole 30 mg delayed release oral capsule (5 sources) Proton Pump Inhibitor Start: 07-24-2019 End: 07-14-2020 take 1 capsule by mouth twice daily Lansoprazole (Prevacid) 30 mg Capsule,Delayed Release(Dr/Ec) Discontinued 30 MG PO Twice daily July 24, 2019 1:00am July 14, 2020 12:39pm olmesartan medoxomil 5 mg oral tablet (10 sources) Angiotensin 2 Receptor Saida Start: 03-13-2019 End: 07-24-2019 take 1 tablet by mouth once daily Olmesartan (Benicar) 5 mg Tablet Discontinued 5 MG PO Daily June 28, 2019 1:00am July 24, 2019 2:52pm tiotropium 0.018 mg inhalation powder (20 sources) [...] 90 cap(s) Start Date: 11/23/22 Status: Ordered End: 10-24-2023 take 2 puff(s) by inhalation twice daily tiotropium (Spiriva Respimat) 2.5 mcg/actuation inhaler Inhale 2 puffs 2 times a day. 10/24/2023 Discontinued (Therapy completed) take 1 capsule by in halation once [...] mg traZODone hydrochloride 50 mg oral tablet (5 sources) Serotonin Reuptake Inhibitor Start: 07-24-2019 End: 07-14-2020 take 50 mg by mouth at bedtime Trazodone Discontinued 50 MG PO Bedtime July 24, 2019 1:00am July 14, 2020 12:40pm Triamcinolone (20 sources) Corticosteroid Start: 10-02-2013 KENALOG - 10 mg Sep, 1 cc varenicline 1 mg oral tablet (5 sources) Partial Cholinergic Nicotinic Agonist Start: 07-14-2020 [...] Atrial fibrillation; 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: [Unspecified atrial fibrillation] Chronic Chronic kidney disease (20 sources) Chronic kidney disease stage 3; 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: [Chronic kidney disease, stage 3 (moderate)] Onset: 2 Resolved: 2 Chronic Chronic kidney disease (6 sources) Chronic kidney disease; 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: [Stage 3 chronic kidney disease, unspecified whether stage 3a or 3b CKD] Onset: 2 Resolved: 2 Chronic obstructive pulmonary disease and bronchiectasis (14 sources) Pulmonary emphysema 11-23-2022 Chronic Congestive heart failure; nonhypertensive (14 sources) Congestive heart failure 10-10-2014 Chronic Coronary atherosclerosis and other heart disease (20 sources) Disorder of coronary artery; 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: [Coronary atherosclerosis of unspecified type of vessel, [place] or graft] Onset: 2 Resolved: 2 Chronic Coronary atherosclerosis and other heart disease (2 sources) Coronary angioplasty status; 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: [Coronary angioplasty status] Onset: 3 Episodic Deficiency and other anemia (1 source) Anemia, unspecified Episodic Diabetes mellitus with complications (20 sources) Peripheral vascular disorder due to diabetes mellitus; 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: [Type 2 diabetes mellitus with other circulatory complications] Onset: 2 Resolved: 2 Chronic Diabetes mellitus without complication (20 sources) Diabetes mellitus; 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: [Diabetes mellitus without mention of complication, type II or unspecified type, not stated as uncontrolled] Onset: 3 04-02-2018 Chronic Disorders of lipid metabolism (20 sources) Hyperlipidemia; 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: [Other and unspecified hyperlipidemia] Onset: 2 Resolved: 2 Chronic Esophageal disorders (20 sources) Gastroesophageal reflux disease; 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: [Gastro-esophageal reflux disease without esophagitis] Onset: 2 Resolved: 2 Chronic Essential hypertension (20 sources) Hypertensive disorder; 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: [Essential (primary) hypertension] 04-02-2018 Chronic Gangrene (2 sources) 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; 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: [Atherosclerosis of [place] arteries of extremities with gangrene, right leg] Onset: 4 Chronic Genitourinary symptoms and ill-defined conditions (20 [...] 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: [Headache] 11-23-2022 Episodic Heart valve disorders (14 sources) Heart murmur 11-23-2022 Episodic Hyperplasia of prostate (17 sources) Benign prostatic hypertrophy with outflow obstruction; 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: [Benign prostatic hyperplasia with lower urinary tract symptoms] Onset: 3 Chronic Hypertension with complications and secondary hypertension (20 sources) Hypertensive renal disease; 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: [Hypertensive chronic kidney disease with stage 1 through stage 4 chronic kidney disease, or unspecified chronic kidney disease] Onset: 2 Resolved: 2 Chronic Inflammatory conditions of male genital organs (17 sources) Orchitis; 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: [Orchitis] Onset: 3 Episodic Nausea and vomiting (20 sources) Nausea and vomiting; 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: [Nausea with vomiting, unspecified] Episodic Nonspecific chest pain (5 sources) Chest pain; 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: [Chest pain, unspecified] 04-01-2018 Episodic Nutritional deficiencies (20 sources) Vitamin D deficiency; 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: [Vitamin D deficiency, unspecified] Onset: 2 Resolved: 2 Chronic Osteoarthritis (14 sources) Arthritis 01-16-2013 Chronic Other acquired deformities (20 sources) Contracture of joint of hand; 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: [Contracture, 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 Other aftercare (20 sources) Long-term current use of insulin; 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: [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] Episodic Other and ill-defined heart disease (14 sources) Heart disease 11-23-2022 Chronic Other circulatory disease (1 source) Other specified symptoms and signs involving the circulatory and respiratory systems; 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: [Other specified symptoms and signs involving the circulatory and respiratory systems] Onset: 4 Episodic Other connective tissue disease (20 sources) Pain in limb; 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: [Pain in leg, unspecified] Episodic Other connective tissue disease (5 sources) Pain in right leg Onset: 2 Resolved: 2 Episodic Other connective tissue disease (14 sources) 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 Other connective tissue disease (1 source) Pain in left arm Episodic Other diseases of bladder and urethra [...] disturbance; 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: [Paresthesia of skin] Episodic Other nervous system disorders (1 source) Other acute postprocedural pain; 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: [Other acute postprocedural pain] Onset: 4 Episodic Other nutritional; endocrine; and metabolic disorders [...] Intermittent claudication; 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: [Peripheral vascular disease, unspecified] Onset: 4 Chronic Residual codes; unclassified (20 sources) Edema of lower extremity; 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: [Localized edema] 07-12-2023 Episodic Residual codes; unclassified (20 sources) Peripheral edema; 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: [Edema, unspecified] Episodic Residual codes; unclassified (20 sources) Amnesia; 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: [Other amnesia] Episodic Residual codes; unclassified (20 sources) Difficulty sleeping ; 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: [Sleep disorder, unspecified] Episodic Residual codes; unclassified (20 sources) Insomnia; 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: [Insomnia, unspecified] Episodic Residual codes; unclassified (5 sources) FH: premature coronary heart disease; 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: [Family history of ischemic heart disease and other diseases of the circulatory system] 04-01-2018 Episodic Residual codes; unclassified (14 sources) Tobacco user 01-16-2013 Episodic Comment on above: Added secondary to s ocial history documentation. Residual codes; unclassified (1 source) Other specified postprocedural states; 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: [Other specified postprocedural states] Onset: 4 Episodic Screening and history of mental health and substance abuse codes (10 sources) Ex-smoker; 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: [Personal history of tobacco use] Onset: 4 10-24-2023 Episodic Comment on above: qauit 07/2020; Septicemia (except in labor) (1 source) Sepsis, unspecified organism Episodic Spondylosis; intervertebral disc disorders; other back problems (20 sources) Degeneration of lumbar intervertebral disc; 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: [Other intervertebral disc degeneration, lumbar region] Chronic Spondylosis; intervertebral disc disorders; other back problems (20 sources) Neck pain; 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: [Cervicalgia] Episodic Substance-related disorders (20 sources) Smoker; 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: [Nicotine dependence, unspecified, uncomplicated] Onset: 4 07-10-2014 Chronic Comment on above: Added secondary to d ocumentation in Social History. 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] Onset: 4 Unclassified (1 source) New Patient Onset: 4 Urinary tract infections (1 source) Urinary tract infection, site not specified Episodic Past or Other Problems Problem Classification Problem Date Documented Da te Episodic/Chronic Cardiac dysrhythmias (7 sources) Palpitations; 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: [Palpitations] Onset: 03-27-2023 03-27-2023 Episodic Headache; including migraine (5 sources) Headache; including migraine Neoplasms of unspecified nature or uncertain behavior (1 source) Neoplasm of uncertain behavior of skin Onset: 02-15-2022 Resolved: 02-15-2022 Episodic Other connective tissue disease (1 source) Pain in left leg Onset: 10-08-2021 Resolved: 10-08-2021 Episodic Other connective tissue disease (1 source) Other specified soft tissue disorders; 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: [Other specified soft tissue disorders] Onset: 07-12-2023 Episodic Other hematologic conditions (1 source) Other [...] Test Name Value Interpretation Reference Range Facility BASIC METABOLIC PANLon 11-13 Anion gap [Moles/Vol] 10 mmol/L Normal 5-15 [facility] Comment on above: Performed By: #### KENDALL AHUJA, , 2776-06 ####[facility] ([id number])[address], [place] [address] Calcium [Mass/Vol] 8.8 mg/dL Normal 8.5-10.5 [facility] Comment on above: Performed By: #### Snehal CANALES [facility], , 2776-06 ####[facility] ([id number])[address], [address], [place] [address] Chloride [Moles/Vol] 99 mmol/L Normal 98-109 [facility] Comment on above: Performed By: #### KENDALL AHUJA, , 2776-06 ####[facility] ([id number])[address], [address], [place] [address] CO2 [Moles/Vol] 26 mmol/L Normal 22-32 [facility] Comment on above: Performed By: #### KENDALL AHUJA, , 2776-06 ####[facility] ([id number])[address], [address], [place] [address] Creatinine [Mass/Vol] 1.61 mg/dL High 0.60-1.30 [facility] Comment on above: Result Comment: METH OD TRACEABLE TO IDMS STANDARD Performed By: #### C KENDALL CANALES, , 2776-06 ####[facility] ([id number])[address], [address] [address] GFR/1.73 sq M.predicted among non-blacks MDRD (S/P/Bld) [Vol rate/Area] 49 mL/min/{1.73_m2} Low >59 [facility] Comment on above: Result Comment: Reported eGFR is based on the CKD-EPI 2020 equation that does not use a race coefficient. Performed By: #### C KENDALL CANALES, , 2776-06 ####[facility] ([id number])[address] [address], [place] [address] Glucose [Mass/Vol] 184 mg/dL High 65-99 [facility] Comment on above: Performed By: #### KENDALL AHUJA, , 2776-06 ####[facility] ([id number])[address] [address], [place] [address] Potassium [Moles/Vol] 4.0 mmol/L Normal 3.5-5.0 [facility] Comment on above: Performed By: #### KENDALL AHUJA, , 2776-06 ####[facility] ([id number])[address] [address] [address] Sodium [Moles/Vol] 135 mmol/L Normal 134-146 [facility] Comment on above: Performed By: #### KENDALL AHUJA, , 2776-06 ####[facility] ([id number])[address] [address] [address] Urea nitrogen [Mass/Vol] 23 mg/dL Normal 5-23 [facility] Comment on above: Performed By: #### C ALLY, [facility], , 2776-06 ####[facility] ([id number])[address], [address], [place] [address] COMPLETE BLOOD COUNTon 11-13 Erythrocyte distribution width (RBC) [Ratio] 22.8 % High 11.5-15.0 [facility] Comment on above: Performed By: #### C ALLY, [facility], , 2776-06 ####[facility] ([id number])[address], [address] [address] Hematocrit (Bld) [Volume fraction] 25.1 % Low 39-49 [facility] Comment on above: Performed By: #### C ALLY, [facility], , 2776-06 ####[facility] ([id number])[address], [address] [address] Hemoglobin (Bld) [Mass/Vol] 8.1 g/dL Low 13.0-17.0 [facility] Comment on above: Performed By: #### Snehal CANALES, [facility], , 2776-06 ####[facility] ([id number])[address], [address], [place] [address] MCH (RBC) [Entitic mass] 25.1 pg Low 27-34 [facility] Comment on above: Performed By: #### C ALLY, [facility], , 2776-06 ####[facility] ([id number])[address], [address], [place] [address] MCHC (RBC) [Mass/Vol] 32.4 g/dL Normal 32-36 [facility] Comment on above: Performed By: #### C ALLY, BMP, , 2776-06 ####[facility] ([id number])[address], [address], [place] [address] MCV (RBC) [Entitic vol] 77 fL Low 80-100 [facility] Comment on above: Performed By: #### Snehal CANALES [facility], , 2776-06 ####[facility] ([id number])[address], [address] [place] [address] Platelet mean volume (Bld) [Entitic vol] 8.8 fL Normal 7-12 [facility] Comment on above: Performed By: #### Snehal CANALES [facility], , 2776-06 ####[facility] ([id number])[address], [address] [place] [address] Platelets (Bld) [#/Vol] 232 10*3/uL Normal 150-450 [facility] Comment on above: Performed By: #### KENDALL AHUJA, , 2776-06 ####[facility] ([id number])[address] [address] [place] [address] RBC COUNT 3.25 X10E12/L Low 4.10-5.70 [facility] Comment on above: Performed By: #### KENDALL AHUJA, , 2776-06 ####[facility] ([id number])[address] [address] WBC (Bld) [#/Vol] 8.4 10*3/uL Normal 4.0-11.0 [facility] Comment on above: Performed By: #### KENDALL AHUJA, , 2776-06 ####[facility] ([id number])[address] [address] Glucose Glucometer (BldC) [M ass/Vol]on 11-14-2023 Glucose [Mass/Vol] 173 mg/dL High 65-99 [facility] Glucose [Mass/Vol] 279 mg/dL High 65-99 [facility] Glucose [Mass/Vol] 249 mg/dL High 65-99 [facility] MAGNESIUMon 11-14-2023 Magnesium [Mass/Vol] 2.1 mg/dL Normal 1.8-2.6 [facility] Comment on above: Performed By: #### 1 9123-9 ####[facility] ([id number])[address], [address], [place] [address] Magnesium [Mass/Vol] mg/dL Critically low 1.8-2.6 [facility] Comment on above: Performed By: #### 1 9123-9 ####[facility] ([id number])[address], [address], [place] [address] Magnesium [Mass/Vol] 1.7 mg/dL Low 1.8-2.6 [facility] Comment on above: Performed By: #### C KENDALL CANALES, , 2776-06 ####[facility] ([id number])[address], [address], [place] [address] PHOSPHORUSon 11-14-2023 Phosphate [Mass/Vol] 3.6 mg/dL Normal 2.4-4.9 [facility] Comment on above: Performed By: #### KENDALL AHUJA, , 2776-06 ####[facility] ([id number])[address], [address], [place] [address] BASIC METABOLIC PANLon 11-12 Anion gap [Moles/Vol] 10 mmol/L Normal 5-15 [facility] Comment on above: Performed By: #### C KENDALL CANALES, , 2776-06 ####[facility] ([id number])[address], [address], [place] [address] Calcium [Mass/Vol] 8.9 mg/dL Normal 8.5-10.5 [facility] Comment on above: Performed By: #### KENDALL AHUJA, , 2776-06 ####[facility] ([id number])[address], [address], [place] [address] Chloride [Moles/Vol] 98 mmol/L Normal 98-109 [facility] Comment on above: Performed By: #### C ALLY, [facility], , 2776-06 ####[facility] ([id number])[address], [address], [place] [address] CO2 [Moles/Vol] 27 mmol/L Normal 22-32 [facility] Comment on above: Performed By: #### C ALLY, [facility], , 2776-06 ####[facility] ([id number])[address] [address], [place] [address] Creatinine [Mass/Vol] 1.47 mg/dL High 0.60-1.30 [facility] Comment on above: Result Comment: METH OD TRACEABLE TO IDMS STANDARD Performed By: #### Snehal CANALES, [facility], , 2776-06 ####[facility] ([id number])[address] [address] GFR/1.73 sq M.predicted among non-blacks MDRD (S/P/Bld) [Vol rate/Area] 55 mL/min/{1.73_m2} Low >59 [facility] Comment on above: Result Comment: Reported eGFR is based on the CKD-EPI 2020 equation that does not use a race coefficient. Performed By: #### Snehal CANALES, KENDALL, , 2776-06 ####[facility] ([id number])[address] [address], [place] [address] Glucose [Mass/Vol] 164 mg/dL High 65-99 [facility] Comment on above: Performed By: #### Snehal CANALES, KENDALL, , 2776-06 ####[facility] ([id number])[address] [address] Potassium [Moles/Vol] 3.8 mmol/L Normal 3.5-5.0 [facility] Comment on above: Performed By: #### C ALLY, [facility], , 2776-06 ####[facility] ([id number])[address], [place] [address] Sodium [Moles/Vol] 135 mmol/L Normal 134-146 [facility] Comment on above: Performed By: #### C ALLY, [facility], , 2776-06 ####[facility] ([id number])[address] [address] Urea nitrogen [Mass/Vol] 26 mg/dL High 5-23 [facility] Comment on above: Performed By: #### Snehal CANALES, [facility], , 2776-06 ####[facility] ([id number])[address] [address] COMPLETE BLOOD COUNTon 11-12 Erythrocyte distribution width (RBC) [Ratio] 23.2 % High 11.5-15.0 [facility] Comment on above: Performed By: #### Snehal CANALES, [facility], , 2776-06 ####[facility] ([id number])[address] [address] Hematocrit (Bld) [Volume fraction] 24.7 % Low 39-49 [facility] Comment on above: Performed By: #### Snehal CANALES, [facility], , 2776-06 ####[facility] ([id number])[address] [address] Hemoglobin (Bld) [Mass/Vol] 8.2 g/dL Low 13.0-17.0 [facility] Comment on above: Performed By: #### Snehal CANALES, KENDALL, , 2776-06 ####[facility] ([id number])[address] [address] MCH (RBC) [Entitic mass] 25.7 pg Low 27-34 [facility] Comment on above: Performed By: #### C KENDALL CANALES, , 2776-06 ####[facility] ([id number])[address] [address] MCHC (RBC) [Mass/Vol] 33.4 g/dL Normal 32-36 [facility] Comment on above: Performed By: #### Snehal CANALES, KENDALL, , 2776-06 ####[facility] ([id number])[address] [address] MCV (RBC) [Entitic vol] 77 fL Low 80-100 [facility] Comment on above: Performed By: #### KENDALL AHUJA, , 2776-06 ####[facility] ([id number])[address] [address], [place] [address] Platelet mean volume (Bld) [Entitic vol] 8.8 fL Normal 7-12 [facility] Comment on above: Performed By: #### KENDALL AHUJA, , 2776-06 ####[facility] ([id number])[address] [address], [place] [address] Platelets (Bld) [#/Vol] 207 10*3/uL Normal 150-450 [facility] Comment on above: Performed By: #### Snehal CANALES, KENDALL, , 2776-06 ####[facility] ([id number])[address] [address] [address] RBC COUNT 3.21 X10E12/L Low 4.10-5.70 [facility] Comment on above: Performed By: #### KENDALL AHUJA, , 2776-06 ####[facility] ([id number])[address], [place] [address] WBC (Bld) [#/Vol] 8.1 10*3/uL Normal 4.0-11.0 [facility] Comment on above: Performed By: #### KENDALL AHUJA, , 2777-1 ####[facility] ([id number])[address], [place] [address] Glucose Glucometer (BldC) [M ass/Vol]on 11-13-2023 Glucose [Mass/Vol] 230 mg/dL High 65-99 [facility] Glucose [Mass/Vol] 225 mg/dL High 65-99 [facility] Glucose [Mass/Vol] 331 mg/dL High 65-99 [facility] Glucose [Mass/Vol] 190 mg/dL High 65-99 [facility] MAGNESIUMon 11-13-2023 Magnesium [Mass/Vol] 2.1 mg/dL Normal 1.8-2.6 [facility] Comment on above: Performed By: #### KENDALL AHUJA, , 2776-06 ####[facility] ([id number])[address], [place] [address] PHOSPHORUSon 11-13-2023 Phosphate [Mass/Vol] 3.8 mg/dL Normal 2.4-4.9 [facility] Comment on above: Performed By: #### KENDALL AHUJA, , 1 ####[facility] ([id number])[address], [place] [address] BASIC METABOLIC PANLon 11-11 Anion gap [Moles/Vol] 11 mmol/L Normal 5-15 [facility] Comment on above: Performed By: #### Snehal CANALES BMP #### [facility] ([id number]) [address], [address] [place] [address] Calcium [Mass/Vol] 9.0 mg/dL Normal 8.5-10.5 [facility] Comment on above: Performed By: #### C ALLY, BMP #### [facility] ([id number]) [address], [address] [place] [address] Chloride [Moles/Vol] 98 mmol/L Normal 98-109 [facility] Comment on above: Performed By: #### C ALLY, BMP #### [facility] ([id number]) [address], [address] [place] [address] CO2 [Moles/Vol] 25 mmol/L Normal 22-32 [facility] Comment on above: Performed By: #### C ALLY, BMP #### [facility] ([id number]) [address] [place] [address] Creatinine [Mass/Vol] 1.40 mg/dL High 0.60-1.30 [facility] Comment on above: Result Comment: METH OD TRACEABLE TO IDMS STANDARD Performed By: #### C ALLY, BMP #### [facility] ([id number]) [address], [address] [place] [address] GFR/1.73 sq M.predicted among non-blacks MDRD (S/P/Bld) [Vol rate/Area] 58 mL/min/{1.73_m2} Low >59 [facility] Comment on above: Result Comment: Reported eGFR is based on the CKD-EPI 2020 equation that does not use a race coefficient. Performed By: #### C ALLY, BMP #### [facility] ([id number]) [address], [address] [place] [address] Glucose [Mass/Vol] 194 mg/dL High 65-99 [facility] Comment on above: Performed By: #### C ALLY, BMP #### [facility] ([id number]) [address], [address] [place] [address] Potassium [Moles/Vol] 4.0 mmol/L Normal 3.5-5.0 [facility] Comment on above: Performed By: #### C ALLY, BMP #### [facility] ([id number]) [address], [address] [place] [address] Sodium [Moles/Vol] 134 mmol/L Normal 134-146 [facility] Comment on above: Performed By: #### C ALLY, BMP #### [facility] ([id number]) [address], [address] [place] [address] Urea nitrogen [Mass/Vol] 23 mg/dL Normal 5-23 [facility] Comment on above: Performed By: #### C ALLY, BMP #### [facility] ([id number]) [address], [address] [place] [address] COMPLETE BLOOD COUNTon 11-11 Erythrocyte distribution width (RBC) [Ratio] 24.1 % High 11.5-15.0 [facility] Comment on above: Performed By: #### C ALLY, BMP #### [facility] ([id number]) [address], [address] [place] [address] Hematocrit (Bld) [Volume fraction] 25.8 % Low 39-49 [facility] Comment on above: Performed By: #### C ALLY, BMP #### [facility] ([id number]) [address], [address] [place] [address] Hemoglobin (Bld) [Mass/Vol] 8.6 g/dL Low 13.0-17.0 [facility] Comment on above: Performed By: #### C ALLY, BMP #### [facility] ([id number]) [address] [address] [place] [address] MCH (RBC) [Entitic mass] 25.7 pg Low 27-34 [facility] Comment on above: Performed By: #### C ALLY, BMP #### [facility] ([id number]) [address] [place] [address] MCHC (RBC) [Mass/Vol] 33.5 g/dL Normal 32-36 [facility] Comment on above: Performed By: #### C ALLY, BMP #### [facility] ([id number]) [address] [place] [address] MCV (RBC) [Entitic vol] 77 fL Low 80-100 [facility] Comment on above: Performed By: #### C ALLY, BMP #### [facility] ([id number]) [address] [place] [address] Platelet mean volume (Bld) [Entitic vol] 9.2 fL Normal 7-12 [facility] Comment on above: Performed By: #### Snehal CANALES, BMP #### [facility] ([id number]) [address] [place] [address] Platelets (Bld) [#/Vol] 185 10*3/uL Normal 150-450 [facility] Comment on above: Performed By: #### Snehal CANALES, BMP #### [facility] ([id number]) [address] [place] [address] RBC COUNT 3.37 X10E12/L Low 4.10-5.70 [facility] Comment on above: Performed By: #### Snehal CANALES, BMP #### [facility] ([id number]) [address] [place] [address] WBC (Bld) [#/Vol] 10.0 10*3/uL Normal 4.0-11.0 [facility] Comment on above: Performed By: #### Snehal CANALES, BMP #### [facility] ([id number]) [address] [place] [address] Glucose Glucometer (BldC) [M ass/Vol]on 11-12-2023 Glucose [Mass/Vol] 230 mg/dL High 65-99 [facility] Glucose [Mass/Vol] 280 mg/dL High 65-99 [facility] Glucose [Mass/Vol] 268 mg/dL High 65-99 [facility] Glucose [Mass/Vol] 220 mg/dL High 65-99 [facility] Glucose [Mass/Vol] 205 mg/dL High 65-99 [facility] MAGNESIUMon 11-12-2023 Magnesium [Mass/Vol] 1.8 mg/dL Normal 1.8-2.6 [facility] Comment on above: Performed By: #### C ALLY, BMP #### [facility] ([id number]) [address] [place] [address] PHOSPHORUSon 11-12-2023 Phosphate [Mass/Vol] 3.8 mg/dL Normal 2.4-4.9 [facility] Comment on above: Performed By: #### Snehal CANALES, BMP #### [facility] ([id number]) [address] [place] [address] BASIC METABOLIC PANLon 11-10 Anion gap [Moles/Vol] 8 mmol/L Normal 5-15 [facility] Comment on above: Performed By: #### Snehal CANALES, BMP #### [facility] ([id number]) [address], [address] [place] [address] Calcium [Mass/Vol] 8.7 mg/dL Normal 8.5-10.5 [facility] Comment on above: Performed By: #### Snehal CANALES, BMP #### [facility] ([id number]) [address], [address] [place] [address] Chloride [Moles/Vol] 99 mmol/L Normal 98-109 [facility] Comment on above: Performed By: #### Snehal CANALES, BMP #### [facility] ([id number]) [address], [address] [place] [address] CO2 [Moles/Vol] 26 mmol/L Normal 22-32 [facility] Comment on above: Performed By: #### Snehal CANALES, BMP #### [facility] ([id number]) [address], [address] [place] [address] Creatinine [Mass/Vol] 1.45 mg/dL High 0.60-1.30 [facility] Comment on above: Result Comment: METH OD TRACEABLE TO IDMS STANDARD Performed By: #### C ALLY, BMP #### [facility] ([id number]) [address], [facility] [address] [place] [address] GFR/1.73 sq M.predicted among non-blacks MDRD (S/P/Bld) [Vol rate/Area] 56 mL/min/{1.73_m2} Low >59 [facility] Comment on above: Result Comment: Reported eGFR is based on the CKD-EPI 2020 equation that does not use a race coefficient. Performed By: #### Snehal CANALES, BMP #### [facility] ([id number]) [address], [address] [place] [address] Glucose [Mass/Vol] 153 mg/dL High 65-99 [facility] Comment on above: Performed By: #### Snehal CANALES, BMP #### [facility] ([id number]) [address], [address] [place] [address] Potassium [Moles/Vol] 3.9 mmol/L Normal 3.5-5.0 [facility] Comment on above: Performed By: #### Snehal CANALES, BMP #### [facility] ([id number]) [address], [address] [place] [address] Sodium [Moles/Vol] 133 mmol/L Low 134-146 [facility] Comment on above: Performed By: #### Snehal CANALES, BMP #### [facility] ([id number]) [address], [address] [place] [address] Urea nitrogen [Mass/Vol] 27 mg/dL High 5-23 [facility] Comment on above: Performed By: #### C ALLY, BMP #### [facility] ([id number]) [address], [facility] [address] [place] [address] COMPLETE BLOOD COUNTon 11-10 Erythrocyte distribution width (RBC) [Ratio] 24.2 % High 11.5-15.0 [facility] Comment on above: Performed By: #### C ALLY, BMP #### [facility] ([id number]) [address], [facility] [address] [place] [address] Hematocrit (Bld) [Volume fraction] 25.1 % Low 39-49 [facility] Comment on above: Performed By: #### C ALLY, BMP #### [facility] ([id number]) [address], [facility] [address] [place] [address] Hemoglobin (Bld) [Mass/Vol] 8.2 g/dL Low 13.0-17.0 [facility] Comment on above: Performed By: #### C ALLY, BMP #### [facility] ([id number]) [address], [facility] [address] [place] [address] MCH (RBC) [Entitic mass] 25.5 pg Low 27-34 [facility] Comment on above: Performed By: #### C ALLY, BMP #### [facility] ([id number]) [address], [address] [place] [address] MCHC (RBC) [Mass/Vol] 32.7 g/dL Normal 32-36 [facility] Comment on above: Performed By: #### C ALLY, BMP #### [facility] ([id number]) [address], [address] [place] [address] MCV (RBC) [Entitic vol] 78 fL Low 80-100 [facility] Comment on above: Performed By: #### C ALLY, BMP #### [facility] ([id number]) [address], [address] [place] [address] Platelet mean volume (Bld) [Entitic vol] 9.0 fL Normal 7-12 [facility] Comment on above: Performed By: #### Snehal CANALES, BMP #### [facility] ([id number]) [address], [address] [place] [address] Platelets (Bld) [#/Vol] 152 10*3/uL Normal 150-450 [facility] Comment on above: Performed By: #### Snehal CANALES, BMP #### [facility] ([id number]) [address], [address] [place] [address] RBC COUNT 3.22 X10E12/L Low 4.10-5.70 [facility] Comment on above: Performed By: #### Snehal CANALES, BMP #### [facility] ([id number]) [address], [address] [place] [address] WBC (Bld) [#/Vol] 9.8 10*3/uL Normal 4.0-11.0 [facility] Comment on above: Performed By: #### Snehal CANALES, BMP #### [facility] ([id number]) [address], [address] [place] [address] Glucose Glucometer (dC) [M ass/Vol]on 11-11-2023 Glucose [Mass/Vol] 184 mg/dL High 65-99 [facility] Glucose [Mass/Vol] 179 mg/dL High 65-99 [facility] Glucose [Mass/Vol] 222 mg/dL High 65-99 [facility] Glucose [Mass/Vol] 303 mg/dL High 65-99 [facility] MAGNESIUMon 11-11-2023 Magnesium [Mass/Vol] 2.4 mg/dL Normal 1.8-2.6 [facility] Comment on above: Performed By: #### Snehal CANALES, BMP #### [facility] ([id number]) [address], [address] [place] [address] Magnesium [Mass/Vol] 1.9 mg/dL Normal 1.8-2.6 [facility] Comment on above: Performed By: #### Snehal CANALES BMP #### [facility] ([id number]) [address], [address] [place] [address] PHOSPHORUSon 11-11-2023 Phosphate [Mass/Vol] 3.2 mg/dL Normal 2.4-4.9 [facility] Comment on above: Performed By: #### Snehal CANALES BMP #### [facility] ([id number]) [address] [place] [address] BASIC METABOLIC PANLon 11-09 Anion gap [Moles/Vol] 6 mmol/L Normal 5-15 [facility] Comment on above: Performed By: #### KENDALL AHUJA, , 2776-06 ####[facility] ([id number])[address], [place] [address] Calcium [Mass/Vol] 8.5 mg/dL Normal 8.5-10.5 [facility] Comment on above: Performed By: #### KENDALL AHUJA, 2776-06 ####[facility] ([id number])[address], [place] [address] Chloride [Moles/Vol] 102 mmol/L Normal 98-109 [facility] Comment on above: Performed By: #### KENDALL AHUJA, , 2776-06 ####[facility] ([id number])[address], [place] [address] CO2 [Moles/Vol] 26 mmol/L Normal 22-32 [facility] Comment on above: Performed By: #### KENDALL AHUJA, 2776-06 ####[facility] ([id number])[address] [address], [place] [address] Creatinine [Mass/Vol] 1.59 mg/dL High 0.60-1.30 [facility] Comment on above: Result Comment: METH OD TRACEABLE TO IDMS STANDARD Performed By: #### C KENDALL CANALES, , 2776-06 ####[facility] ([id number])[address] [address] [address] GFR/1.73 sq M.predicted among non-blacks MDRD (S/P/Bld) [Vol rate/Area] 50 mL/min/{1.73_m2} Low >59 [facility] Comment on above: Result Comment: Reported eGFR is based on the CKD-EPI 2020 equation that does not use a race coefficient. Performed By: #### KENDALL AHUJA, , 2776-06 ####[facility] ([id number])[address] [address], [place] [address] Glucose [Mass/Vol] 145 mg/dL High 65-99 [facility] Comment on above: Performed By: #### KENDALL AHUJA, , 2776-06 ####[facility] ([id number])[address] [address], [place] [address] Potassium [Moles/Vol] 3.9 mmol/L Normal 3.5-5.0 [facility] Comment on above: Performed By: #### KENDALL AHUJA, , 2776-06 ####[facility] ([id number])[address] [address], [place] [address] Sodium [Moles/Vol] 134 mmol/L Normal 134-146 [facility] Comment on above: Performed By: #### KENDALL AHUJA, , 2776-06 ####[facility] ([id number])[address] [address], [place] [address] Urea nitrogen [Mass/Vol] 23 mg/dL Normal 5-23 [facility] Comment on above: Performed By: #### C BC, BMP, , 2776-06 ####[facility] ([id number])[address] [address] [place] [address] COMPLETE BLOOD COUNTon 11-09 Erythrocyte distribution width (RBC) [Ratio] 24.9 % High 11.5-15.0 [facility] Comment on above: Performed By: #### C ALLY, [facility], , 2776-06 ####[facility] ([id number])[address] [address] Hematocrit (Bld) [Volume fraction] 24.5 % Low 39-49 [facility] Comment on above: Performed By: #### Snehal CANALES, BMP, , 2776-06 ####[facility] ([id number])[address] [address] [place] [address] Hemoglobin (Bld) [Mass/Vol] 7.9 g/dL Low 13.0-17.0 [facility] Comment on above: Performed By: #### Snehal CANALES, BMP, , 2776-06 ####[facility] ([id number])[address] [address] [place] [address] MCH (RBC) [Entitic mass] 25.4 pg Low 27-34 [facility] Comment on above: Performed By: #### C BC, BMP, , 2776-06 ####[facility] ([id number])[address] [address] [place] [address] MCHC (RBC) [Mass/Vol] 32.4 g/dL Normal 32-36 [facility] Comment on above: Performed By: #### Snehal BC, BMP, , 2776-06 ####[facility] ([id number])[address] [address] MCV (RBC) [Entitic vol] 78 fL Low 80-100 [facility] Comment on above: Performed By: #### Snehal CANALES [facility], , 2776-06 ####[facility] ([id number])[address], [place] [address] Platelet mean volume (Bld) [Entitic vol] 9.1 fL Normal 7-12 [facility] Comment on above: Performed By: #### Snehal CANALES [facility], , 2776-06 ####[facility] ([id number])[address] [address] Platelets (Bld) [#/Vol] 142 10*3/uL Low 150-450 [facility] Comment on above: Performed By: #### Snehal CANALES [facility], , 2776-06 ####[facility] ([id number])[address] [address] [address] RBC COUNT 3.14 X10E12/L Low 4.10-5.70 [facility] Comment on above: Performed By: #### KENDALL AHUJA, , 2776-06 ####[facility] ([id number])[address] [address], [place] [address] WBC (Bld) [#/Vol] 9.7 10*3/uL Normal 4.0-11.0 [facility] Comment on above: Performed By: #### Snehal CANALES [facility], , 2776-06 ####[facility] ([id number])[address] [address] Glucose Glucometer (BldC) [M ass/Vol]on 11-10-2023 Glucose [Mass/Vol] 168 mg/dL High 65-99 [facility] Glucose [Mass/Vol] 245 mg/dL High 65-99 [facility] Glucose [Mass/Vol] 155 mg/dL High 65-99 [facility] Glucose [Mass/Vol] 153 mg/dL High 65-99 [facility] MAGNESIUMon 11-10-2023 Magnesium [Mass/Vol] 2.2 mg/dL Normal 1.8-2.6 [facility] Comment on above: Performed By: #### Snehal CANALES, BMP #### [facility] ([id number]) [address] [place] [address] Magnesium [Mass/Vol] 1.8 mg/dL Normal 1.8-2.6 [facility] Comment on above: Performed By: #### Snehal CANALES, KENDALL, , 2776-06 ####[facility] ([id number])[address] [address] PHOSPHORUSon 11-10-2023 Phosphate [Mass/Vol] 3.1 mg/dL Normal 2.4-4.9 [facility] Comment on above: Performed By: #### Snehal CANALES, KENDALL, , 2776-06 ####[facility] ([id number])[address], [place] [address] BASIC METABOLIC PANLon 11-08 Anion gap [Moles/Vol] 9 mmol/L Normal 5-15 [facility] Comment on above: Performed By: #### Snehal CANALES, 2639-3, BMP, 2156-11, , 2776-06 ####[facility] ([id number])[address] [address] Calcium [Mass/Vol] 8.4 mg/dL Low 8.5-10.5 [facility] Comment on above: Performed By: #### Snehal CANALES, 2639-3, BMP, 2156-11, , 2776-06 ####[facility] ([id number])[address] [address] Chloride [Moles/Vol] 104 mmol/L Normal 98-109 [facility] Comment on above: Performed By: #### C BC, 2639-3, BMP, 2156-6, , 2776-1 ####[facility] ([id number])[address], [place] [address] CO2 [Moles/Vol] 25 mmol/L Normal 22-32 [facility] Comment on above: Performed By: #### C BC, 2639-3, BMP, 2156-11, , 1 ####[facility] ([id number])[address], [place] [address] Creatinine [Mass/Vol] 1.35 mg/dL High 0.60-1.30 [facility] Comment on above: Result Comment: METH OD TRACEABLE TO IDMS STANDARD Performed By: #### C BC, 2639-3, BMP, 2156-11, , 2776-06 ####[facility] ([id number])[address] [address] GFR/1.73 sq M.predicted among non-blacks MDRD (S/P/Bld) [Vol rate/Area] 61 mL/min/{1.73_m2} Normal >59 [facility] Comment on above: Result Comment: Reported eGFR is based on the CKD-EPI 2020 equation that does not use a race coefficient. Performed By: #### C BC, 2639-3, BMP, 6, , 2776-06 ####[facility] ([id number])[address] [address], [place] [address] Glucose [Mass/Vol] 217 mg/dL High 65-99 [facility] Comment on above: Performed By: #### C BC, 2639-3, BMP, 2156-6, 45729-2, 2776-1 ####[facility] ([id number])[address], [place] [address] Potassium [Moles/Vol] 4.2 mmol/L Normal 3.5-5.0 [facility] Comment on above: Performed By: #### C BC, 2639-3, BMP, 2156-6, 53595-7, 2776- ####[facility] ([id number])[address], [place] [address] Sodium [Moles/Vol] 138 mmol/L Normal 134-146 [facility] Comment on above: Performed By: #### C BC, 2639-3, BMP, 2156-, 03108-4, 2776- ####[facility] ([id number])[address], [address] [place] [address] Urea nitrogen [Mass/Vol] 23 mg/dL Normal 5-23 [facility] Comment on above: Performed By: #### C BC, 2639-3, BMP, 2156-, 31760-9, 2776- ####[facility] ([id number])[address], [place] [address] CK [Catalytic activity/Vol]o n 11-09-2023 CPK 44 U/L Normal 24-195 [facility] Comment on above: Performed By: #### 2 157-6, 2639-3 ####[facility] ([id number])[address] [place] [address] CPK 30 U/L Normal 24-195 [facility] Comment on above: Performed By: #### C BC, 2639-3, BMP, 2156-, 73490-6, 2776-1 ####[facility] ([id number])[address], [place] [address] COMPLETE BLOOD COUNTon 11-08 Erythrocyte distribution width (RBC) [Ratio] 24.9 % High 11.5-15.0 [facility] Comment on above: Performed By: #### C BC, 2639-3, BMP, 2156-11, , 2776-06 ####[facility] ([id number])[address] [address] [place] [address] Hematocrit (Bld) [Volume fraction] 26.8 % Low 39-49 [facility] Comment on above: Performed By: #### C BC, 2639-3, BMP, 2156-11, , 2776-06 ####[facility] ([id number])[address] [address] [place] [address] Hemoglobin (Bld) [Mass/Vol] 8.7 g/dL Low 13.0-17.0 [facility] Comment on above: Performed By: #### Snehal CANALES, 2639-3, BMP, 2156-11, , 2776-06 ####[facility] ([id number])[address] [address] [place] [address] MCH (RBC) [Entitic mass] 24.8 pg Low 27-34 [facility] Comment on above: Performed By: #### Snehal BC, 2639-3, BMP, 2156-11, , 2776-06 ####[facility] ([id number])[address] [address] [place] [address] MCHC (RBC) [Mass/Vol] 32.6 g/dL Normal 32-36 [facility] Comment on above: Performed By: #### C BC, 2639-3, BMP, 2156-11, , 2776-06 ####[facility] ([id number])[address] [address] [place] [address] MCV (RBC) [Entitic vol] 76 fL Low 80-100 [facility] Comment on above: Performed By: #### Snehal CANALES, 2639-3, BMP, 2156-, , 2776-06 ####[facility] ([id number])[address], [place] [address] Platelet mean volume (Bld) [Entitic vol] 9.3 fL Normal 7-12 [facility] Comment on above: Performed By: #### Snehal CANALES, 2639-3, BMP, 2156-, , 2776- ####[facility] ([id number])[address] [address] [place] [address] Platelets (Bld) [#/Vol] 184 10*3/uL Normal 150-450 [facility] Comment on above: Performed By: #### Snehal CANALES, 2639-3, BMP, 2156-11, , 2776-06 ####[facility] ([id number])[address] [address] [place] [address] RBC COUNT 3.53 X10E12/L Low 4.10-5.70 [facility] Comment on above: Performed By: #### Snehal CANALES, 2639-3, BMP, 2156-11, , 1 ####[facility] ([id number])[address] [address] [place] [address] WBC (Bld) [#/Vol] 11.0 10*3/uL Normal 4.0-11.0 [facility] Comment on above: Performed By: #### Snehal CANALES, 2639-3, BMP, 2156-11, , 2776- ####[facility] ([id number])[address] [address] [place] [address] Glucose Glucometer (BldC) [M ass/Vol]on 11-09-2023 Glucose [Mass/Vol] 243 mg/dL High 65-99 [facility] Glucose [Mass/Vol] 184 mg/dL High 65-99 [facility] Glucose [Mass/Vol] 199 mg/dL High 65-99 [facility] Glucose [Mass/Vol] 218 mg/dL High 65-99 [facility] Heparin unfractionated Chrom ogenic method Qn (PPP)on 11-09-2023 ANTI XA UFH 0.15 IU/mL Low 0.30-0.70 [facility] Comment on above: Result Comment: Opti mal time for testing is 6 hrs post dosage This test is specific for monitoring patients on UFH, and is not recommended for use with other Anti-Xa medications. Performed By: #### 3 274-8 ####[facility] ([id number])[address] [place] [address] MAGNESIUMon 11-09-2023 Magnesium [Mass/Vol] 2.2 mg/dL Normal 1.8-2.6 [facility] Comment on above: Performed By: #### C ALLY, 2639-3, BMP, 2156-11, , 2776-1 ####[facility] ([id number])[address] [place] [address] Myoglobin [Mass/Vol]on 11-08 SERUM MYOGLOBIN 97.7 ng/mL Normal 17.4-105.7 [facility] Comment on above: Performed By: #### 2 157-6, 2639-3 ####[facility] ([id number])[address] [place] [address] SERUM MYOGLOBIN 51.7 ng/mL Normal 17.4-105.7 [facility] Comment on above: Performed By: #### C ALLY, 2639-3, BMP, 2156-11, , 2776- ####[facility] ([id number])[address] [place] [address] PHOSPHORUSon 11-09-2023 Phosphate [Mass/Vol] 4.4 mg/dL Normal 2.4-4.9 [facility] Comment on above: Performed By: #### C BC, 2639-3, BMP, 2157-6, 75224-7, 2777-1 ####[facility] ([id number])[address], [place] [address] BASIC METABOLIC PANLon 11-07 Anion gap [Moles/Vol] 9 mmol/L Normal 5-15 [facility] Comment on above: Performed By: #### P INR #### [facility] ([id number]) [address] [place] [address] Calcium [Mass/Vol] 8.4 mg/dL Low 8.5-10.5 [facility] Comment on above: Performed By: #### P INR #### [facility] ([id number]) [address] [place] [address] Chloride [Moles/Vol] 106 mmol/L Normal 98-109 [facility] Comment on above: Performed By: #### P INR #### [facility] ([id number]) [address] [place] [address] CO2 [Moles/Vol] 24 mmol/L Normal 22-32 [facility] Comment on above: Performed By: #### P INR #### [facility] ([id number]) [address], [address] [place] [address] Creatinine [Mass/Vol] 1.30 mg/dL Normal 0.60-1.30 [facility] Comment on above: Result Comment: METH OD TRACEABLE TO IDMS STANDARD Performed By: #### P INR #### [facility] ([id number]) [address], [address] [place] [address] GFR/1.73 sq M.predicted among non-blacks MDRD (S/P/Bld) [Vol rate/Area] 64 mL/min/{1.73_m2} Normal >59 [facility] Comment on above: Result Comment: Reported eGFR is based on the CKD-EPI 2020 equation that does not use a race coefficient. Performed By: #### P INR #### [facility] ([id number]) [address], [address] [place] [address] Glucose [Mass/Vol] 163 mg/dL High 65-99 [facility] Comment on above: Performed By: #### P INR #### [facility] ([id number]) [address] [address] [place] [address] Potassium [Moles/Vol] 4.1 mmol/L Normal 3.5-5.0 [facility] Comment on above: Performed By: #### P INR #### [facility] ([id number]) [address], [address] [place] [address] Sodium [Moles/Vol] 139 mmol/L Normal 134-146 [facility] Comment on above: Performed By: #### P INR #### [facility] ([id number]) [address], [address] [place] [address] Urea nitrogen [Mass/Vol] 23 mg/dL Normal 5-23 [facility] Comment on above: Performed By: #### P INR #### [facility] ([id number]) [address], [address] [place] [address] Anion gap [Moles/Vol] 9 mmol/L Normal 5-15 [facility] Comment on above: Performed By: #### C BC, BMP #### [facility] ([id number]) [address], [address] [place] [address] Calcium [Mass/Vol] 8.8 mg/dL Normal 8.5-10.5 [facility] [facility] Comment on above: Performed By: #### C BC, BMP #### [facility] ([id number]) [address], [address] [place] [address] Chloride [Moles/Vol] 104 mmol/L Normal 98-109 [facility] Comment on above: Performed By: #### C ALLY, BMP #### [facility] ([id number]) [address], [address] [place] [address] CO2 [Moles/Vol] 25 mmol/L Normal 22-32 [facility] Comment on above: Performed By: #### C ALLY, BMP #### [facility] ([id number]) [address], [address] [place] [address] Creatinine [Mass/Vol] 1.70 mg/dL High 0.60-1.30 [facility] Comment on above: Result Comment: METH OD TRACEABLE TO IDMS STANDARD Performed By: #### Snehal CANALES, BMP #### [facility] ([id number]) [address], [address] [place] [address] GFR/1.73 sq M.predicted among non-blacks MDRD (S/P/Bld) [Vol rate/Area] 46 mL/min/{1.73_m2} Low >59 [facility] Comment on above: Result Comment: Reported eGFR is based on the CKD-EPI 2020 equation that does not use a race coefficient. Performed By: #### C ALLY, BMP #### [facility] ([id number]) [address], [address] [place] [address] Glucose [Mass/Vol] 111 mg/dL High 65-99 [facility] Comment on above: Performed By: #### Snehal CANALES, BMP #### [facility] ([id number]) [address], [address] [place] [address] Potassium [Moles/Vol] 3.8 mmol/L Normal 3.5-5.0 [facility] Comment on above: Performed By: #### C BC, BMP #### [facility] ([id number]) [address], [address] [place] [address] Sodium [Moles/Vol] 138 mmol/L Normal 134-146 [facility] Comment on above: Performed By: #### C BC, BMP #### [facility] ([id number]) [address], [address] [place] [address] Urea nitrogen [Mass/Vol] 28 mg/dL High 5-23 [facility] Comment on above: Performed By: #### C BC, BMP #### [facility] ([id number]) [address], [address] [place] [address] CK [Catalytic activity/Vol]o n 11-08-2023 CPK 26 U/L Normal 24-195 [facility] Comment on above: Performed By: #### P INR #### [facility] ([id number]) [address], [address] [place] [address] COMPLETE BLOOD COUNTon 11-07 Erythrocyte distribution width (RBC) [Ratio] 24.8 % High 11.5-15.0 [facility] Comment on above: Performed By: #### P INR #### [facility] ([id number]) [address], [address] [place] [address] Hematocrit (Bld) [Volume fraction] 29.3 % Low 39-49 [facility] Comment on above: Performed By: #### P INR #### [facility] ([id number]) [address], [address] [place] [address] Hemoglobin (Bld) [Mass/Vol] 9.6 g/dL Low 13.0-17.0 [facility] Comment on above: Performed By: #### P INR #### [facility] ([id number]) [address], [address] [place] [address] MCH (RBC) [Entitic mass] 24.9 pg Low 27-34 [facility] Comment on above: Performed By: #### P INR #### [facility] ([id number]) [address], [address] [place] [address] MCHC (RBC) [Mass/Vol] 32.7 g/dL Normal 32-36 [facility] Comment on above: Performed By: #### P INR #### [facility] ([id number]) [address], [address] [place] [address] MCV (RBC) [Entitic vol] 76 fL Low 80-100 [facility] Comment on above: Performed By: #### P INR #### [facility] ([id number]) [address], [address] [place] [address] Platelet mean volume (Bld) [Entitic vol] 8.7 fL Normal 7-12 [facility] Comment on above: Performed By: #### P INR #### [facility] ([id number]) [address], [address] [place] [address] Platelets (Bld) [#/Vol] 169 10*3/uL Normal 150-450 [facility] Comment on above: Performed By: #### P INR #### [facility] ([id number]) [address], [address] [place] [address] RBC COUNT 3.85 X10E12/L Low 4.10-5.70 [facility] Comment on above: Performed By: #### P INR #### [facility] ([id number]) [address], [address] [place] [address] WBC (Bld) [#/Vol] 13.5 10*3/uL High 4.0-11.0 [facility] Comment on above: Performed By: #### P INR #### [facility] ([id number]) [address], [address] [place] [address] Erythrocyte distribution width (RBC) [Ratio] 25.2 % High 11.5-15.0 [facility] Comment on above: Performed By: #### C ALLY, BMP #### [facility] ([id number]) [address] [place] [address] Hematocrit (Bld) [Volume fraction] 33.0 % Low 39-49 [facility] Comment on above: Performed By: #### C ALLY, BMP #### [facility] ([id number]) [address], [address] [place] [address] Hemoglobin (Bld) [Mass/Vol] 10.8 g/dL Low 13.0-17.0 [facility] Comment on above: Performed By: #### C ALLY, BMP #### [facility] ([id number]) [address] [place] [address] MCH (RBC) [Entitic mass] 25.0 pg Low 27-34 [facility] Comment on above: Performed By: #### C ALLY, BMP #### [facility] ([id number]) [address] [place] [address] MCHC (RBC) [Mass/Vol] 32.8 g/dL Normal 32-36 [facility] Comment on above: Performed By: #### C ALLY, BMP #### [facility] ([id number]) [address] [place] [address] MCV (RBC) [Entitic vol] 76 fL Low 80-100 [facility] Comment on above: Performed By: #### C ALLY, BMP #### [facility] ([id number]) [address], [address] [place] [address] Platelet mean volume (Bld) [Entitic vol] 8.8 fL Normal 7-12 [facility] Comment on above: Performed By: #### C ALLY, BMP #### [facility] ([id number]) [address], [address] [place] [address] Platelets (Bld) [#/Vol] 172 10*3/uL Normal 150-450 [facility] Comment on above: Performed By: #### C BC, BMP #### [facility] ([id number]) [address], [address] [place] [address] RBC COUNT 4.33 X10E12/L Normal 4.10-5.70 [facility] Comment on above: Performed By: #### C BC, BMP #### [facility] ([id number]) [address] [place] [address] WBC (Bld) [#/Vol] 9.3 10*3/uL Normal 4.0-11.0 [facility] Comment on above: Performed By: #### C BC, BMP #### [facility] ([id number]) [address], [address] [place] [address] Glucose Glucometer (dC) [M ass/Vol]on 11-08-2023 Glucose [Mass/Vol] 162 mg/dL High 65-99 [facility] Glucose [Mass/Vol] 96 mg/dL Normal 65-99 [facility] Glucose [Mass/Vol] 142 mg/dL High 65-99 [facility] Glucose [Mass/Vol] 114 mg/dL High 65-99 [facility] Lactate (P ekaterina) [Moles/Vol]o n 11-08-2023 LACTATE W/REFLEX 1.0 mmol/L Normal 0.4-2.0 [facility] Comment on above: Result Comment: Result did not trigger repeat Lactate, re-order if needed. Performed By: #### P INR #### [facility] ([id number]) [address], [address] [place] [address] MAGNESIUMon 11-08-2023 Magnesium [Mass/Vol] 1.7 mg/dL Low 1.8-2.6 [facility] Comment on above: Performed By: #### P INR #### [facility] ([id number]) [address] [facility] [address] [place] [address] Myoglobin [Mass/Vol]on 11-07 SERUM MYOGLOBIN 33.1 ng/mL Normal 17.4-105.7 [facility] Comment on above: Performed By: #### P INR #### [facility] ([id number]) [address] [place] [address] PHOSPHORUSon 11-08-2023 Phosphate [Mass/Vol] 4.0 mg/dL Normal 2.4-4.9 [facility] Comment on above: Performed By: #### P INR #### [facility] ([id number]) [address] [facility] [address] [place] [address] PROTIME AND INRon 11-08-2023 INR Coag (PPP) [Relative time] 1.3 {INR} High 0.8-1.1 [facility] Comment on above: Performed By: #### P INR #### [facility] ([id number]) [address] [place] [address] PT Coag (PPP) [Time] 14.7 s High 9.8-13.2 [facility] Comment on above: Performed By: #### P INR #### [facility] ([id number]) [address] [facility] [address] [place] [address] RAPID CARDIACon 11-08-2023 COURTNEY'S TEST Normal [facility] Comment on above: Performed By: #### A FAB5 #### [facility] ([id number]) [address] [place] [address] Base excess Calc (Bld) [Moles/Vol] 0.1 mmol/L Normal 0.0-2.0 [facility] Comment on above: Performed By: #### A FAB5 #### [facility] ([id number]) [address] [place] [address] Body temperature 98.6 [degF] Normal 37.0 [facility] Comment on above: Performed By: #### A FAB5 #### [facility] ([id number]) [address] [place] [address] Glucose [Mass/Vol] 117 mg/dL High 65-99 [facility] Comment on above: Performed By: #### A FAB5 #### [facility] ([id number]) [address] [place] [address] HCO3 (Bld) [Moles/Vol] 24.8 mmol/L Normal 22-26 P [facility] Comment on above: Performed By: #### A FAB5 #### [facility] ([id number]) [address] [place] [address] Hematocrit (Bld) [Volume fraction] 31 % Low 39-49 [facility] Comment on above: Performed By: #### A FAB5 #### [facility] ([id number]) [address] [place] [address] Hemoglobin (Bld) [Mass/Vol] 10.2 g/dL Low 13.0-17.0 [facility] Comment on above: Performed By: #### A FAB5 #### [facility] ([id number]) [address] [place] [address] INSP. O2 CONC. 100 % Normal [facility] Comment on above: Performed By: #### A FAB5 #### [facility] ([id number]) [address] [place] [address] IONIZED CALCIUM 4.8 mg/dL Normal 4.5-5.3 [facility] Comment on above: Performed By: #### A FAB5 #### [facility] ([id number]) [address] [place] [address] Oxygen (Bld) [Partial pressure] 167 mm[Hg] High 80-100 [facility] Comment on above: Performed By: #### A FAB5 #### [facility] ([id number]) [address] [place] [address] Oxygen saturation in Blood 100.8 % Normal >90 [facility] Comment on above: Performed By: #### A FAB5 #### [facility] ([id number]) [address] [place] [address] PCO2 39.7 MMHG Normal 35-45 [facility] Comment on above: Performed By: #### A FAB5 #### [facility] ([id number]) [address] [place] [address] pH (Bld) 7.404 [pH] Normal 7.350-7.45 0 [facility] Comment on above: Performed By: #### A FAB5 #### [facility] ([id number]) [address] [place] [address] Potassium [Moles/Vol] 3.8 mmol/L Normal 3.5-5.0 [facility] Comment on above: Performed By: #### A FAB5 #### [facility] ([id number]) [address] [place] [address] SAMPLE SITE KECIA Normal [facility] Comment on above: Performed By: #### A FAB5 #### [facility] ([id number]) [address] [place] [address] SAMPLE TYPE Arterial Normal [facility] Comment on above: Performed By: #### A FAB5 #### [facility] ([id number]) [address] [place] [address] RAPID CARDIAC W/ NAon 2023 COURTNEY'S TEST Normal [facility] Comment on above: Performed By: #### P INR #### [facility] ([id number]) [address], [address] [place] [address] Base excess Calc (Bld) [Moles/Vol] 0.2 mmol/L Normal 0.0-2.0 [facility] Comment on above: Performed By: #### P INR #### [facility] ([id number]) [address], [address] [place] [address] Body temperature 98.6 [degF] Normal 37.0 [facility] Comment on above: Performed By: #### P INR #### [facility] ([id number]) [address] [place] [address] Glucose [Mass/Vol] 125 mg/dL High 65-99 [facility] Comment on above: Performed By: #### P INR #### [facility] ([id number]) [address] [place] [address] HCO3 (Bld) [Moles/Vol] 25.3 mmol/L Normal 22-26 [facility] Comment on above: Performed By: #### P INR #### [facility] ([id number]) [address] [place] [address] Hematocrit (Bld) [Volume fraction] 31 % Low 39-49 [facility] Comment on above: Performed By: #### P INR #### [facility] ([id number]) [address], [address] [place] [address] Hemoglobin (Bld) [Mass/Vol] 10.0 g/dL Low 13.0-17.0 [facility] Comment on above: Performed By: #### P INR #### [facility] ([id number]) [address], [address] [place] [address] INSP. O2 CONC. 50 % Normal [facility] Comment on above: Performed By: #### P INR #### [facility] ([id number]) [address], [address] [place] [address] IONIZED CALCIUM 4.7 mg/dL Normal 4.5-5.3 [facility] Comment on above: Performed By: #### P INR #### [facility] ([id number]) [address], [address] [place] [address] Oxygen (Bld) [Partial pressure] 131 mm[Hg] High 80-100 [facility] Comment on above: Performed By: #### P INR #### [facility] ([id number]) [address] [place] [address] Oxygen saturation in Blood 99.9 % Normal >90 [facility] Comment on above: Performed By: #### P INR #### [facility] ([id number]) [address] [place] [address] PCO2 42.7 MMHG Normal 35-45 [facility] Comment on above: Performed By: #### P INR #### [facility] ([id number]) [address] [place] [address] pH (Bld) 7.381 [pH] Normal 7.350-7.45 0 [facility] Comment on above: Performed By: #### P INR #### [facility] ([id number]) [address] [place] [address] Potassium [Moles/Vol] 3.7 mmol/L Normal 3.5-5.0 [facility] Comment on above: Performed By: #### P INR #### [facility] ([id number]) [address], [address] [place] [address] SAMPLE SITE KECIA Normal [facility] Comment on above: Performed By: #### P INR #### [facility] ([id number]) [address] [place] [address] SAMPLE TYPE Arterial Normal [facility] Comment on above: Performed By: #### P INR #### [facility] ([id number]) [address] [place] [address] Sodium [Moles/Vol] 139 mmol/L Normal 134-146 [facility] Comment on above: Performed By: #### P INR #### [facility] ([id number]) [address] [place] [address] aPTT Coag (PPP) [Time]on aPTT Coag (Bld) [Time] 30 s Normal 26-37 [facility] Comment on above: Performed By: #### P INR #### [facility] ([id number]) [address] [place] [address] Glucose Glucometer (BldC) [M ass/Vol]on 11-07-2023 Glucose [Mass/Vol] 150 mg/dL High 65-99 [facility] Glucose [Mass/Vol] 58 mg/dL Low 65-99 [facility] POC [id number] 11-07-2023 Chloride [Moles/Vol] 98 mmol/L Normal 98-109 [facility] Comment on above: Performed By: #### I ELGBC #### [facility] ([id number]) [address] [place] [address] CO2 [Moles/Vol] 31 mmol/L Normal 22-32 [facility] Comment on above: Performed By: #### I ELGBC #### [facility] ([id number]) [address] [place] [address] Creatinine [Mass/Vol] 1.9 mg/dL High 0.7-1.2 [facility] Comment on above: Result Comment: METH OD TRACEABLE TO IDMS STANDARD Performed By: #### I ELGBC #### [facility] ([id number]) [address] [place] [address] GFR/1.73 sq M.predicted among non-blacks MDRD (S/P/Bld) [Vol rate/Area] 40 mL/min/{1.73_m2} Low >59 [facility] Comment on above: Result Comment: Reported eGFR is based on the CKD-EPI 2020 equation that does not use a race coefficient. Performed By: #### I [facility] #### [facility] ([id number]) [address] [place] [address] Glucose [Mass/Vol] 72 mg/dL Normal 65-99 [facility] Comment on above: Performed By: #### I [facility] #### [facility] ([id number]) [address] [place] [address] Potassium [Moles/Vol] 3.6 mmol/L Normal 3.5-5.0 [facility] Comment on above: Performed By: #### I [facility] #### [facility] ([id number]) [address] [place] [address] Sodium [Moles/Vol] 139 mmol/L Normal 134-146 [facility] Comment on above: Performed By: #### I [facility] #### [facility] ([id number]) [address] [place] [address] Urea nitrogen [Mass/Vol] 31 mg/dL High 6-23 [facility] Comment on above: Performed By: #### I [facility] #### [facility] ([id number]) [address] [place] [address] PROTIME AND INRon 11-07-2023 INR Coag (PPP) [Relative time] 1.3 {INR} High 0.8-1.1 [facility] Comment on above: Performed By: #### P INR #### [facility] ([id number]) [address] [place] [address] PT Coag (PPP) [Time] 14.5 s High 9.8-13.2 [facility] Comment on above: Performed By: #### P INR #### [facility] ([id number]) [address] [place] [address] ECG 12 Leadon 10-24-2023 [facility] Work Phone: Consent for Treatmenton 10-04 Consent for Treatment [phone] [id number] Normal [facility] Heart and Vascular Office/Cl inic Noteon 10-23-2023 Heart and Vascular Office/Clinic Note Chief Complaint F/U Testing History of Present Illness 58-year-old gentleman with right lower extremity critical limb ischemia. 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 He has multilevel occlusive disease. His iliac stenosis on the right side and SFA occlusive disease and tibial disease. Discussed with him angiogram and intervention. We will get cardiac clearance. Will do this is soon as possible. Discussed with him that if the angiogram is not successful in creating an inline flow we will discuss right femoropopliteal bypass. Review of Systems PHQ Score Initial Depression Screen Score: 0 SCORE Constitutional: no fever, no chills, no sweats, no weakness Skin: no Jaundice, no rash, no lesions, nopetechiae ENMT: no ear pain, no sore throat, no congestion, no hoarseness Respiratory: no shortness of breath, no cough, no orthopnea, no wheezing Cardiovascular: no chest pain, no palpitations, no edema Gastrointestinal: no nausea, no vomiting, no diarrhea, no GI bleeding Genitourinary: no dysuria, no hematuria, no discharge, no pain Musculoskeletal: no back pain, no trauma Neurologic: no headache, no dizziness, no numbness, no weakness Psychiatric: no sleeping problems, no irritability, no mood swings/depression. Heme/Lymph: no bleeding tendency, no bruising tendency, no petechiae, no swollen nodes Allergy/Immunologic: no seasonal allergies, no food allergies, no recurrent infections, no impaired immunity Additional ROS info: Except as noted in the above Review of Systems and in the History of Present Illness all other systems have been reviewed and are negative or noncontributory. Physical Exam Vitals & Measurements HR: 107(Peripheral) BP: 130/82 SpO2: 98% HT: 72 in HT: 182 cm WT: 99.5 kg WT: 218.9 lb BMI: 30.04 Constitutional: no fever, no chills, no sweats, no weakness Skin: no Jaundice, no rash, no lesions, nopetechiae ENMT: no ear pain, no sore throat, no congestion, no hoarseness Respiratory: no shortness of breath, no cough, no orthopnea, no wheezing Cardiovascular: no chest pain, no palpitations, no edema Gastrointestinal: no nausea, no vomiting, no diarrhea, no GI bleeding Genitourinary: no dysuria, no hematuria, no discharge, no pain Musculoskeletal: no back pain, no trauma Neurologic: no headache, no dizziness, no numbness, no weakness Psychiatric: no sleeping problems, no irritability, no mood swings/depression. Heme/Lymph: no bleeding tendency, no bruising tendency, no petechiae, no swollen nodes Allergy/Immunologic: no seasonal allergies, no food allergies, no recurrent infections, no impaired immunity Additional ROS info: Except as noted in the above Review of Systems and in the History of Present Illness all other systems have been reviewed and are negative or noncontributory. Assessment/Plan 1. 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 Cardiac clearance. Follow-up No qualifying data available Problem List/Past Medical History Ongoing Arthritis Asthma BPH with obstruction/lower urinary tract symptoms COPD type A Fibromyalgia Gross hematuria Head ache Heart attack Heart disease Heart murmur Hyperlipidemia Orchitis Restless leg Smoker Urinary retention Historical CHF (congestive heart failure) GERD [Gastroesophageal reflux disease] HTN [Hypertension] FL (myocardial infarction) NIDDM Procedure/Surgical History TURP - Transurethral resection of prostate (04/13/2023), Cystoscopy (02/14/2023), Appendectomy, Bilateral Carpal Tunnel Surgery, Bilateral Eye Surgery, cardiac stents, Cataract extraction and insertion of intraocular lens, Colonoscopy, Procedure on back. Medications Amaryl 2 mg Tab, 2 mg= 1 tab(s), Oral, BID amitriptyline 100 mg oral tablet, Oral, Once a day (at bedtime) Aspirin 81 mg Tab-EC doxycycline hyclate 100 mg Cap, 100 mg= 1 cap(s), Oral, Daily famotidine 40 mg Tab, 40 mg= 1 [...] mg, Oral, BID metoprolol, 100 mg, BID NitroStat 0.4 mg Tab, 0.4 mg= 1 tab(s), SubLingual, q5min, PRN [place] 325 mg-5 mg oral tablet, 1 tab(s), Oral, q4hr, PRN Norvasc 5 mg Tab, 5 mg= 1 tab(s), Oral, Daily Plavix 75 mg Tab, 75 mg= 1 tab(s), Oral, Daily Prilosec, Oral, Daily ProAir HFA, Inhalation, q6hr Ranexa 1000 mg oral tablet, extended release, 1000 mg= 1 tab(s), Oral, BID Requip, 1 mg, Oral, TID Spiriva 18 mcg Cap, 18 mcg= 1 cap(s), Inhalation, Daily tamsulosin 0.4 mg Cap, 0.4 mg= 1 cap(s), Oral, BID, 11 refills (more content not included)... Normal [facility] Comment on above: Result Comment: Elec tronically Signed By: Simon HERRERA, Padmini Weathers\.br\Date and Time Signed: 10/23/23 10:35 EDT US PVR Lower EXT Complete Bi laton 10-20-2023 US PVR Lower EXT Complete Bilat Exam Date/Time: 10/19/2023 14:56 EDT Reason for Exam: I70.261 Report IMPRESSION: MODERATE DISEASE ON THE RIGHT ACCORDING TO THE ANKLE-BRACHIAL INDEX AT THE POSTERIOR TIBIAL ARTERY. MODERATE DISEASE ON THE LEFT. CLINICAL HISTORY: Recently postop from total amputation on the right. COMMENT: Unable to obtain DP pulse on the right and unable to obtain right metatarsal waveform secondary to bandaging. On the right, the brachial systolic pressure is 130 , the high thigh pressure is 136 , the low thigh pressure is 96, the calf pressure is 106 , the posterior tibial ankle pressure is 75, the dorsalis pedis ankle pressure is not obtained as above, and the digit pressure is not obtained secondary to amputation. The high thigh-brachial index is 1.04, with normal 1.0 or greater. The ankle-brachial index at the posterior tibial artery is 0.57, with normal 1.0 or greater. The plethysmography waveforms are moderately to severely abnormal. On the left, the brachial systolic pressure is 131 , the high thigh pressure is 123 , the low thigh pressure is 105 , the calf pressure is 88, the posterior tibial ankle pressure is 88, the dorsalis pedis ankle pressure is 86, and the digit pressure is 81. The high thigh-brachial index is 0.94, with normal 1.0 or greater. The ankle-brachial index at the posterior tibial artery is 0.67 and at the dorsalis pedis is 0.66, with normal 1.0 or greater. The toe-brachial index is 0.62, with normal 0.7 or greater. The plethysmography waveforms are moderately to severely abnormal, worsening distally. Ordering Provider: Padmini Montes FINAL REPORT Dictated: 10/20/2023 12:31 pm Christiano Guillen MD Signed (Electronic Signature): 10/20/2023 12:31 pm Signed by: Christiano Guillen MD Transcribed by: HASEEB Technologist: TARAN [place] [facility] CHEMISTRYOrdered By: SYSTEM SYSTEM on 10-19-2023 Creatinine [Mass/Vol] 1.6 mg/dL High 0.5 - 1.3 mg/dL Remisol Chem eGFR 50 mL/min/1.73 m2 Low >=59mL/min /1.73 m2 Remisol Chem CTA Abd Aorto-bilat/ iliofem oral runoffon 10-19-2023 CTA Abd Aorto-bilat/ iliofemoral runoff Exam Date/Time: 10/19/2023 15:12 EDT Reason for Exam: [id number] Report IMPRESSION: ATHEROSCLEROTIC DISEASE OF THE LOWER EXTREMITIES DETAILED. EXAM: CTA Abd Aorto-bilat/ iliofemoral runoff History: Right foot pain and bruising. Technique: Multiple contiguous axial images were obtained of the abdomen and pelvis from the level of the lung bases through the feet with contrast. Multiplanar reformats were obtained. 3-D images were obtained of the abdominopelvic and lower extremity arteries Unless otherwise stated, incidental findings identified in this report do not require routine follow-up imaging. Comparison: The 06/27/2020 Findings: Stable 5 mm right middle lobe nodule. Lung bases are otherwise clear. Multiple tiny calcifications throughout the liver and spleen likely represents sequela of prior granulomatous disease. The spleen and liver otherwise unremarkable. The gallbladder, pancreas, stomach, and adrenal glands are within normal limits. The kidneys enhance uniformly. Simple fluid density nonenhancing cyst of the left kidney measures 2.7 cm. No urinary tract calculi or hydronephrosis. Urinary bladder is well distended. Abdominal aorta is nonaneurysmal. Atherosclerotic calcification of the abdominal aorta. The celiac artery, superior mesenteric artery, inferior mesenteric artery, and renal arteries are patent. There is a segment of approximately 50% stenosis of the right common iliac artery for length of approximately 1 cm with additional areas of lesser stenosis. There is a patent left common iliac artery and left external iliac artery stent. There is occlusion of the left internal iliac artery. There is occlusion of the right femoral artery with reconstitution of flow within the popliteal artery which demonstrates multifocal areas of stenosis of up to 80%. The right deep femoral artery is patent. The right anterior tibial artery is occluded. The right posterior tibial artery and fibular arteries are patent. There is atherosclerotic disease of the left femoral artery which demonstrates multifocal areas of stenosis including multiple areas of near complete and complete Report occlusion throughout its course. The left deep femoral artery is patent. The left popliteal artery, posterior tibial artery, and fibular artery are patent. The left anterior tibial artery is occluded. No retroperitoneal or abdominal/pelvic lymphadenopathy. No small bowel obstruction. Moderate to large amount of stool throughout the colon may represent constipation. No overt colonic mass or pericolonic inflammation. Postsurgical changes at the cecum compatible with appendectomy. No free fluid or free air. No acute osseous abnormality. Postsurgical changes of partial amputation of the first through fifth metatarsals and first through fifth phalanges. Subcutaneous soft tissue edema of the lower extremities. Degenerative changes of the spine. All CT scans at this facility use dose modulation, iterative reconstruction, and/or weight based dosing when appropriate to reduce radiation dose to as low as reasonably achievable. Ordering Provider: Padmini Montes FINAL REPORT Dictated: 10/19/2023 4:18 pm Jose M Zuleta DO Signed (Electronic Signature): 10/19/2023 4:18 pm Signed by: Jose M Zuleta DO Transcribed by: HASEEB Technologist: ROMAN Technical Comments GFR (mL/min/1/73m2) 50 Contrast: Isovue 370 Contrast amount in ml's: 150 Normal [facility] Consent for Treatmenton 10-03 Consent for Treatment [id number]#1.00TIFF Normal [facility] Creatinineon 10-19-2023 Creatinine [Mass/Vol] 1.6 mg/dL High 0.5-1.3 [facility] Comment on above: Performed By: #### [id number] #### [facility] [address] [place] [address] Physician Orderon 10-19-2023 Physician Order [id number]#1.00TIFF [facility] eGFRon 10-19-2023 eGFR 50 mL/min/1.73 m2 Low >=59 [facility] Comment on above: Order Comment: Order added by Discern Expert. Performed By: #### 1 [id number] #### [facility] [address] [place] [address] Outside Progress Noteon 10-03 Outside Progress Note [id number]#1.00TIFF Normal [facility] Physician Orderon 10-18-2023 Physician Order [id number]#1.00TIF F [facility] Physician Order [id number]#1.00TIFF Normal [facility] Basophils Auto (Bld) [#/Vol] on 10-06-2023 Basophils (Bld) [#/Vol] 0.0 10 3/uL 0.0-0.1 [facility] Basophils/100 WBC Auto (Bld) on 10-06-2023 Basophils/100 WBC (Bld) 0.3 % 0.2-2.0 [facility] Eosinophils/100 WBC Auto (Bl d)on 10-06-2023 Eosinophils/100 WBC (Bld) 1.9 % 0.9-7.0 [facility] Erythrocyte distribution wid th Auto (RBC) [Ratio]on 10-06-2023 Erythrocyte distribution width (RBC) [Ratio] 19.9 % 11.0-15.0 [facility] Estimated glomerular filtrat ion rate (GFR) non- Americanon 10-06-2023 GFR/1.73 sq M.predicted among non-blacks MDRD (S/P/Bld) [Vol rate/Area] 42 mL/min/{1.73_m2} >=60 [facility] Globulin Calc (S) [Mass/Vol] on 10-06-2023 Globulin (S) [Mass/Vol] 4.3 g/dL [facility] Hematocrit Auto (Bld) [Volum e fraction]on 10-06-2023 Hematocrit (Bld) [Volume fraction] 28.3 % 42.0-54.0 [facility] Hemoglobin [Mass/volume] in Bloodon 10-06-2023 Hemoglobin (Bld) [Mass/Vol] 8.4 g/dL 14.0-18.0 [facility] Laboratory - Chemistry and C hemistry - challengeon 10-06-2023 Albumin [Mass/Vol] 2.1 g/dL 3.4-5.0 [facility] ALP [Catalytic activity/Vol] 133 U/L 46-116 [facility] ALT [Catalytic activity/Vol] 18 U/L 16-63 [facility] AST [Catalytic activity/Vol] 20 U/L 15-37 [facility] Bilirubin [Mass/Vol] 0.3 mg/dL 0.2-1.0 [facility] Calcium [Mass/Vol] 9.4 mg/dL 8.5-10.1 [facility] Chloride [Moles/Vol] 103 mmol/L 98-107 [facility] CO2 [Moles/Vol] 23.7 mmol/L 21.0-32.0 [facility] Creatinine [Mass/Vol] 1.67 mg/dL 0.70-1.30 [facility] GFR/1.73 sq M.predicted MDRD (S/P/Bld) [Vol rate/Area] 52 mL/min/{1.73_m2} >=60 [facility] Glucose [Mass/Vol] 91 mg/dL 74-106 [facility] Magnesium [Mass/Vol] 1.6 mg/dL 1.8-2.4 [facility] Potassium [Moles/Vol] 4.8 mmol/L 3.5-5.1 [facility] Protein [Mass/Vol] 6.4 g/dL 6.4-8.2 [facility] Sodium [Moles/Vol] 136 mmol/L 136-145 [facility] Urea nitrogen [Mass/Vol] 29.0 mg/dL 7.0-18.0 [facility] Urea nitrogen/Creatinine [Mass ratio] 17.4 mg/mg [facility] Laboratory - Hematology and Cell countson 10-06-2023 ESR (Bld) [Velocity] mm/h <=20 [facility] Immature granulocytes/100 WBC (Bld) 1.5 % 0.0-0.5 [facility] Leukocytes [#/volume] correc jorge for nucleated erythrocytes in Blood by Automated counon 10-06-2023 WBC corrected for nucl RBC Auto (Bld) [#/Vol] 11.6 10 3/uL 4.0-11.0 [facility] Lymphocytes Auto (Bld) [#/Vo l]on 10-06-2023 Lymphocytes (Bld) [#/Vol] 1.5 10 3/uL 1.2-3.8 [facility] Lymphocytes/100 WBC Auto (Bl d)on 10-06-2023 Lymphocytes/100 WBC (Bld) 12.9 % 20.5-60.0 [facility] MCH Auto (RBC) [Entitic mass ]on 10-06-2023 MCH (RBC) [Entitic mass] 22.5 pg 25.9-34.0 [facility] MCHC Auto (RBC) [Mass/Vol]on 10-06-2023 MCHC (RBC) [Mass/Vol] 29.7 g/dL 29.9-35.2 [facility] MCV Auto (RBC) [Entitic vol] on 10-06-2023 MCV (RBC) [Entitic vol] 75.9 fL 80.0-94.0 [facility] Monocytes Auto (Bld) [#/Vol] on 10-06-2023 Monocytes (Bld) [#/Vol] 1.3 10 3/uL 0.3-0.8 [facility] Monocytes/100 WBC Auto (Bld) on 10-06-2023 Monocytes/100 WBC (Bld) 10.9 % 1.7-12.0 [facility] Neutrophils Auto (Bld) [#/Vo l]on 10-06-2023 Neutrophils (Bld) [#/Vol] 8.4 10 3/uL 1.4-6.5 [facility] Neutrophils/100 WBC Auto (Bl d)on 10-06-2023 Neutrophils/100 WBC (Bld) 72.5 % 43.0-75.0 [facility] No Panel Informationon 10-05 Eosinophils # (Auto) 0.2 10 3/uL 0.0-0.7 [facility] Immature Granulocyte # (Auto) 0.17 10 3/uL 0.00-0.03 [facility] Platelet mean volume Auto (B ld) [Entitic vol]on 10-06-2023 Platelet mean volume (Bld) [Entitic vol] 10.3 fL 9.5-13.5 [facility] Platelets Auto (Bld) [#/Vol] on 10-06-2023 Platelets (Bld) [#/Vol] 233 10 3/uL 150-450 [facility] RBC Auto (Bld) [#/Vol]on RBC (Bld) [#/Vol] 3.73 10 6/uL 4.70-6.10 [facility] Serum or plasma albumin/glob ulin mass ratioon 10-06-2023 Albumin/Globulin [Mass ratio] 0.5 {ratio} [facility] Serum or plasma anion gap de terminationon 10-06-2023 Anion gap [Moles/Vol] 14.1 mmol/L [facility] Basophils Auto (Bld) [#/Vol] on 10-05-2023 Basophils (Bld) [#/Vol] 0.1 10 3/uL 0.0-0.1 [facility] Basophils/100 WBC Auto (Bld) on 10-05-2023 Basophils/100 WBC (Bld) 0.6 % 0.2-2.0 [facility] Eosinophils/100 WBC Auto (Bl d)on 10-05-2023 Eosinophils/100 WBC (Bld) 3.3 % 0.9-7.0 [facility] Erythrocyte distribution wid th Auto (RBC) [Ratio]on 10-05-2023 Erythrocyte distribution width (RBC) [Ratio] 19.6 % 11.0-15.0 [facility] Estimated glomerular filtrat ion rate (GFR) non- Americanon 10-05-2023 GFR/1.73 sq M.predicted among non-blacks MDRD (S/P/Bld) [Vol rate/Area] 41 mL/min/{1.73_m2} >=60 [facility] Globulin Calc (S) [Mass/Vol] on 10-05-2023 Globulin (S) [Mass/Vol] 4.7 g/dL [facility] Hematocrit Auto (Bld) [Volum e fraction]on 10-05-2023 Hematocrit (Bld) [Volume fraction] 29.9 % 42.0-54.0 [facility] Hemoglobin [Mass/volume] in Bloodon 10-05-2023 Hemoglobin (Bld) [Mass/Vol] 9.0 g/dL 14.0-18.0 [facility] Guy 10-05-2023 L Specimen: [id number] Received: 10/06/23 Status: SOUT Req Num: [id number] Spec Type: Surgical Subm Dr: Paula Elias,DPM, MS Tissues: A DIGIT AMPUTATION (RT 2,3,4 AND 5 METATARSAL AM) Procedures: HE/6, Gross/Micro L4, Decalcification Age/ Patient Sex Location Account Attending Physician Solomon Feldman SR 58/M LABELL [id number] Paula Elias DPM, MS SPEC NUM: [id number] RECD: 10/06/23 STATUS: COLTON RELinda NUM: [id number] SHAKIRA: 10/05/[address]: Paula Elias DPM, MS ENTERED: 10/06/[address]: Aurelio,Jericho SPEC TYPE: Surgical DEPT: RAMSEY MARCANO ORDERED: HE/6, Gross/Micro L4, Decalcification ORDERED: HE/6, Gross/Micro L4, Decalcification Pathological Diagnosis Right second, third, fourth and fifth metatarsals, amputation: Skin ulceration with underlying soft tissue acute inflammation and vasculitis. Gross Description Received in formalin, labeled with the patient's name, date of and right 2, 3, 4, 5 metatarsals is a 9.6 x 9.1 x 2.9 cm forefoot specimen including the second, third, fourth and fifth toes. The big toe is absent. Additionally submitted within the specimen container are previously detached, undesignated proximal phalanges ranging from 1.1 x 0.8 x 0.8 cm to 4.5 x 1.2 x 1.0 cm and are arbitrarily designated as #1, #2, #3 and #4. Each of the attached toes contain a thickened meyers-yellow nail. The skin surface is meyers-pink and contains a 4.5 x 1.3 cm area of skin slippage noted at the skin margin. The skin and soft tissue present at the site of the absent big toe contain skin slippage and appear grossly nonviable. No lesions or ulcerated areas are appreciated. Each bone margin is inked black and shaved. Each of the arbitrarily designated detached proximal phalanges are inked along their presumed margin as follows: #1-red, #2-blue, #3-orange, #4-green. Sectioning into the specimen demonstrates firm, yellow spongy bone matrix. Gum Sprayer sections are submitted as follows: A1: Skin and soft tissue margins A2: Second digit, bone margin; #1 proximal phalangeal margin (following decal) A3: Third digit, bone margin; #2 proximal phalangeal margin (following decal) A4: Fourth digit, bone margin; #3 proximal phalangeal margin (following decal) A5: Fifth digit, bone margin; #4 proximal phalangeal margin (following decal) Specimen: [id number] Received: 10/06/23 Status: COLTON Lester Num: [id number] Spec Type: Surgical Subm Dr: Paula Elias,LINDSEY, MS Tissues: A DIGIT AMPUTATION (RT 2,3,4 AND 5 METATARSAL AM) Procedures: LULU/Ramirez, Gross/Micro L4, Decalcification Patient: Solomon Feldman SR [id number] (Continued) Specimen: [id number] Received: 10/06/23 (Continued) Gross Description (Continued) Signed (signature on file) Padmini Linn MD 10/10/23 1542 Specimen: [id number] Received: 10/06/23 Status: COLTON Lester Num: [id number] Spec Type: Surgical Subm Dr: Paula Elias,LINDSEY, MS Tissues: A DIGIT AMPUTATION (RT 2,3,4 AND 5 METATARSAL AM) Procedures: HE/6, Gross/Micro L4, Decalcification Patient: Solomon Feldman SR [id number] (Continued) Specimen: [id number] Received: 10/06/23 (Continued) Gross Description (Continued) A6: Full-thickness section to include skin, underlying soft tissue and bone (following decal) Clinical history: None given CPT Codes 35875 FOREFOOT AND DIGITS Specimen: [id number] Received: 10/06/23-130 Status: COLTON Lester Num: [id number] Spec Type: Surgical Subm Dr: Paula Elias,LINDSEY, MS Tissues: A DIGIT AMPUTATION (RT 2,3,4 AND 5 METATARSAL AM) Procedures: HE/6, Gross/Micro L4, Decalcification Patient: Solomon Feldman SR [id number] (Continued) Signed (signature on file) Padmini Linn MD 10/10/23 9690 Normal [facility] - Chemistry and C hemistry - challengeon 10-05-2023 Albumin [Mass/Vol] 2.2 g/dL 3.4-5.0 [facility] ALP [Catalytic activity/Vol] 140 U/L 46-116 [facility] ALT [Catalytic activity/Vol] 18 U/L 16-63 [facility] AST [Catalytic activity/Vol] 22 U/L 15-37 [facility] Bilirubin [Mass/Vol] 0.5 mg/dL 0.2-1.0 [facility] Calcium [Mass/Vol] 9.2 mg/dL 8.5-10.1 [facility] Chloride [Moles/Vol] 100 mmol/L 98-107 [facility] CO2 [Moles/Vol] 22.6 mmol/L 21.0-32.0 [facility] Creatinine [Mass/Vol] 1.74 mg/dL 0.70-1.30 [facility] GFR/1.73 sq M.predicted MDRD (S/P/Bld) [Vol rate/Area] 49 mL/min/{1.73_m2} >=60 [facility] Glucose [Mass/Vol] 162 mg/dL 74-106 [facility] Magnesium [Mass/Vol] 1.7 mg/dL 1.8-2.4 [facility] Potassium [Moles/Vol] 5.3 mmol/L 3.5-5.1 [facility] Protein [Mass/Vol] 6.9 g/dL 6.4-8.2 [facility] Sodium [Moles/Vol] 133 mmol/L 136-145 [facility] Urea nitrogen [Mass/Vol] 30.0 mg/dL 7.0-18.0 [facility] Urea nitrogen/Creatinine [Mass ratio] 17.2 mg/mg [facility] Laboratory - Hematology and Cell countson 10-05-2023 ESR (Bld) [Velocity] 130 mm/h <=20 [facility] Immature granulocytes/100 WBC (Bld) 1.3 % 0.0-0.5 [facility] Leukocytes [#/volume] correc jorge for nucleated erythrocytes in Blood by Automated counon 10-05-2023 WBC corrected for nucl RBC Auto (Bld) [#/Vol] 12.6 10 3/uL 4.0-11.0 [facility] Lymphocytes Auto (Bld) [#/Vo l]on 10-05-2023 Lymphocytes (Bld) [#/Vol] 1.3 10 3/uL 1.2-3.8 [facility] Lymphocytes/100 WBC Auto (Bl d)on 10-05-2023 Lymphocytes/100 WBC (Bld) 10.1 % 20.5-60.0 [facility] MCH Auto (RBC) [Entitic mass ]on 10-05-2023 MCH (RBC) [Entitic mass] 22.7 pg 25.9-34.0 [facility] MCHC Auto (RBC) [Mass/Vol]on 10-05-2023 MCHC (RBC) [Mass/Vol] 30.1 g/dL 29.9-35.2 [facility] MCV Auto (RBC) [Entitic vol] on 10-05-2023 MCV (RBC) [Entitic vol] 75.3 fL 80.0-94.0 [facility] Monocytes Auto (Bld) [#/Vol] on 10-05-2023 Monocytes (Bld) [#/Vol] 1.4 10 3/uL 0.3-0.8 [facility] Monocytes/100 WBC Auto (Bld) on 10-05-2023 Monocytes/100 WBC (Bld) 10.9 % 1.7-12.0 [facility] Neutrophils Auto (Bld) [#/Vo l]on 10-05-2023 Neutrophils (Bld) [#/Vol] 9.3 10 3/uL 1.4-6.5 [facility] Neutrophils/100 WBC Auto (Bl d)on 10-05-2023 Neutrophils/100 WBC (Bld) 73.8 % 43.0-75.0 [facility] No Panel Informationon 10-04 Eosinophils # (Auto) 0.4 10 3/uL 0.0-0.7 [facility] Immature Granulocyte # (Auto) 0.16 10 3/uL 0.00-0.03 [facility] Platelet mean volume Auto (B ld) [Entitic vol]on 10-05-2023 Platelet mean volume (Bld) [Entitic vol] 11.3 fL 9.5-13.5 [facility] Platelets Auto (Bld) [#/Vol] on 10-05-2023 Platelets (Bld) [#/Vol] 203 10 3/uL 150-450 [facility] RBC Auto (Bld) [#/Vol]on RBC (Bld) [#/Vol] 3.97 10 6/uL 4.70-6.10 [facility] Serum or plasma albumin/glob ulin mass ratioon 10-05-2023 Albumin/Globulin [Mass ratio] 0.5 {ratio} [facility] Serum or plasma anion gap de terminationon 10-05-2023 Anion gap [Moles/Vol] 15.7 [facility] Bas[facility] Auto (Bld) [#/Vol] on 10-04-2023 Basophils (Bld) [#/Vol] 0.1 10 3/uL 0.0-0.1 [facility] Basophils/100 WBC Auto (Bld) on 10-04-2023 Basophils/100 WBC (Bld) 0.5 % 0.2-2.0 [facility] Eosinophils/100 WBC Auto (Bl d)on 10-04-2023 Eosinophils/100 WBC (Bld) 3.6 % 0.9-7.0 [facility] Erythrocyte distribution wid th Auto (RBC) [Ratio]on 10-04-2023 Erythrocyte distribution width (RBC) [Ratio] 19.6 % 11.0-15.0 [facility] Estimated glomerular filtrat ion rate (GFR) non- Americanon 10-04-2023 GFR/1.73 sq M.predicted among non-blacks MDRD (S/P/Bld) [Vol rate/Area] 44 mL/min/{1.73_m2} >=60 [facility] Globulin Calc (S) [Mass/Vol] on 10-04-2023 Globulin (S) [Mass/Vol] 4.3 g/dL [facility] Hematocrit Auto (Bld) [Volum e fraction]on 10-04-2023 Hematocrit (Bld) [Volume fraction] 26.8 % 42.0-54.0 [facility] Hemoglobin [Mass/volume] in Bloodon 10-04-2023 Hemoglobin (Bld) [Mass/Vol] 7.9 g/dL 14.0-18.0 [facility] Laboratory - Chemistry and C hemistry - challengeon 10-04-2023 Albumin [Mass/Vol] 1.9 g/dL 3.4-5.0 [facility] ALP [Catalytic activity/Vol] 135 U/L 46-116 [facility] ALT [Catalytic activity/Vol] 16 U/L 16-63 [facility] AST [Catalytic activity/Vol] 19 U/L 15-37 [facility] Bilirubin [Mass/Vol] 0.4 mg/dL 0.2-1.0 [facility] Calcium [Mass/Vol] 7.8 mg/dL 8.5-10.1 [facility] Chloride [Moles/Vol] 102 mmol/L 98-107 [facility] CO2 [Moles/Vol] 25.0 mmol/L 21.0-32.0 [facility] Creatinine [Mass/Vol] 1.61 mg/dL 0.70-1.30 [facility] GFR/1.73 sq M.predicted MDRD (S/P/Bld) [Vol rate/Area] 54 mL/min/{1.73_m2} >=60 [facility] Glucose [Mass/Vol] 136 mg/dL 74-106 [facility] Magnesium [Mass/Vol] 1.7 mg/dL 1.8-2.4 [facility] Potassium [Moles/Vol] 5.1 mmol/L 3.5-5.1 [facility] Protein [Mass/Vol] 6.2 g/dL 6.4-8.2 [facility] Sodium [Moles/Vol] 134 mmol/L 136-145 [facility] Urea nitrogen [Mass/Vol] 25.0 mg/dL 7.0-18.0 [facility] Urea nitrogen/Creatinine [Mass ratio] 15.5 mg/mg [facility] Laboratory - Hematology and Cell countson 10-04-2023 ESR (Bld) [Velocity] 117 mm/h <=20 [facility] Immature granulocytes/100 WBC (Bld) 0.9 % 0.0-0.5 [facility] Leukocytes [#/volume] correc jorge for nucleated erythrocytes in Blood by Automated counon 10-04-2023 WBC corrected for nucl RBC Auto (Bld) [#/Vol] 11.5 10 3/uL 4.0-11.0 [facility] Lymphocytes Auto (Bld) [#/Vo l]on 10-04-2023 Lymphocytes (Bld) [#/Vol] 1.3 10 3/uL 1.2-3.8 [facility] Lymphocytes/100 WBC Auto (Bl d)on 10-04-2023 Lymphocytes/100 WBC (Bld) 10.9 % 20.5-60.0 [facility] MCH Auto (RBC) [Entitic mass ]on 10-04-2023 MCH (RBC) [Entitic mass] 22.4 pg 25.9-34.0 [facility] MCHC Auto (RBC) [Mass/Vol]on 10-04-2023 MCHC (RBC) [Mass/Vol] 29.5 g/dL 29.9-35.2 [facility] MCV Auto (RBC) [Entitic vol] on 10-04-2023 MCV (RBC) [Entitic vol] 75.9 fL 80.0-94.0 [facility] Monocytes Auto (Bld) [#/Vol] on 10-04-2023 Monocytes (Bld) [#/Vol] 1.4 10 3/uL 0.3-0.8 [facility] Monocytes/100 WBC Auto (Bld) on 10-04-2023 Monocytes/100 WBC (Bld) 12.4 % 1.7-12.0 [facility] Neutrophils Auto (Bld) [#/Vo l]on 10-04-2023 Neutrophils (Bld) [#/Vol] 8.3 10 3/uL 1.4-6.5 [facility] Neutrophils/100 WBC Auto (Bl d)on 10-04-2023 Neutrophils/100 WBC (Bld) 71.7 % 43.0-75.0 [facility] No Panel Informationon 10-03 Eosinophils # (Auto) 0.4 10 3/uL 0.0-0.7 [facility] Immature Granulocyte # (Auto) 0.10 10 3/uL 0.00-0.03 [facility] Platelet mean volume Auto (B ld) [Entitic vol]on 10-04-2023 Platelet mean volume (Bld) [Entitic vol] 11.5 fL 9.5-13.5 [facility] Platelets Auto (Bld) [#/Vol] on 10-04-2023 Platelets (Bld) [#/Vol] 154 10 3/uL 150-450 [facility] RBC Auto (Bld) [#/Vol]on RBC (Bld) [#/Vol] 3.53 10 6/uL 4.70-6.10 [facility] Serum or plasma albumin/glob ulin mass ratioon 10-04-2023 Albumin/Globulin [Mass ratio] 0.4 {ratio} [facility] Serum or plasma anion gap de terminationon 10-04-2023 Anion gap [Moles/Vol] 12.1 mmol/L [facility] Basophils Auto (Bld) [#/Vol] on 10-03-2023 Basophils (Bld) [#/Vol] 0.1 10 3/uL 0.0-0.1 [facility] [facility] Basophils/100 WBC Auto (Bld) on 10-03-2023 Basophils/100 WBC (Bld) 0.7 % 0.2-2.0 [facility] Eosinophils/100 WBC Auto (Bl d)on 10-03-2023 Eosinophils/100 WBC (Bld) 2.7 % 0.9-7.0 [facility] Erythrocyte distribution wid th Auto (RBC) [Ratio]on 10-03-2023 Erythrocyte distribution width (RBC) [Ratio] 19.2 % 11.0-15.0 [facility] Estimated glomerular filtrat ion rate (GFR) non- Americanon 10-03-2023 GFR/1.73 sq M.predicted among non-blacks MDRD (S/P/Bld) [Vol rate/Area] 46 mL/min/{1.73_m2} >=60 [facility] Globulin Calc (S) [Mass/Vol] on 10-03-2023 Globulin (S) [Mass/Vol] 4.1 g/dL [facility] Hematocrit Auto (Bld) [Volum e fraction]on 10-03-2023 Hematocrit (Bld) [Volume fraction] 26.4 % 42.0-54.0 [facility] Hemoglobin [Mass/volume] in Bloodon 10-03-2023 Hemoglobin (Bld) [Mass/Vol] 8.1 g/dL 14.0-18.0 [facility] Laboratory - Chemistry and C hemistry - challengeon 10-03-2023 Albumin [Mass/Vol] 1.9 g/dL 3.4-5.0 [facility] ALP [Catalytic activity/Vol] 140 U/L 46-116 [facility] ALT [Catalytic activity/Vol] 17 U/L 16-63 [facility] AST [Catalytic activity/Vol] 21 U/L 15-37 [facility] Bilirubin [Mass/Vol] 0.3 mg/dL 0.2-1.0 [facility] Calcium [Mass/Vol] 6.7 mg/dL 8.5-10.1 [facility] Chloride [Moles/Vol] 101 mmol/L 98-107 [facility] CO2 [Moles/Vol] 23.9 mmol/L 21.0-32.0 [facility] Creatinine [Mass/Vol] 1.57 mg/dL 0.70-1.30 [facility] GFR/1.73 sq M.predicted MDRD (S/P/Bld) [Vol rate/Area] 55 mL/min/{1.73_m2} >=60 [facility] Glucose [Mass/Vol] 142 mg/dL 74-106 [facility] Magnesium [Mass/Vol] 1.3 mg/dL 1.8-2.4 [facility] Potassium [Moles/Vol] 4.8 mmol/L 3.5-5.1 [facility] Protein [Mass/Vol] 6.0 g/dL 6.4-8.2 [facility] Sodium [Moles/Vol] 134 mmol/L 136-145 [facility] Urea nitrogen [Mass/Vol] 23.0 mg/dL 7.0-18.0 [facility] Urea nitrogen/Creatinine [Mass ratio] 14.6 mg/mg [facility] Laboratory - Hematology and Cell countson 10-03-2023 ESR (Bld) [Velocity] mm/h <=20 [facility] Immature granulocytes/100 WBC (Bld) 1.0 % 0.0-0.5 [facility] Leukocytes [#/volume] correc jorge for nucleated erythrocytes in Blood by Automated counon 10-03-2023 WBC corrected for nucl RBC Auto (Bld) [#/Vol] 11.6 10 3/uL 4.0-11.0 [facility] Lymphocytes Auto (Bld) [#/Vo l]on 10-03-2023 Lymphocytes (Bld) [#/Vol] 1.4 10 3/uL 1.2-3.8 [facility] Lymphocytes/100 WBC Auto (Bl d)on 10-03-2023 Lymphocytes/100 WBC (Bld) 12.1 % 20.5-60.0 [facility] MCH Auto (RBC) [Entitic mass ]on 10-03-2023 MCH (RBC) [Entitic mass] 23.2 pg 25.9-34.0 [facility] MCHC Auto (RBC) [Mass/Vol]on 10-03-2023 MCHC (RBC) [Mass/Vol] 30.7 g/dL 29.9-35.2 [facility] MCV Auto (RBC) [Entitic vol] on 10-03-2023 MCV (RBC) [Entitic vol] 75.6 fL 80.0-94.0 [facility] Monocytes Auto (Bld) [#/Vol] on 10-03-2023 Monocytes (Bld) [#/Vol] 1.3 10 3/uL 0.3-0.8 [facility] Monocytes/100 WBC Auto (Bld) on 10-03-2023 Monocytes/100 WBC (Bld) 10.8 % 1.7-12.0 [facility] Neutrophils Auto (Bld) [#/Vo l]on 10-03-2023 Neutrophils (Bld) [#/Vol] 8.5 10 3/uL 1.4-6.5 [facility] Neutrophils/100 WBC Auto (Bl d)on 10-03-2023 Neutrophils/100 WBC (Bld) 72.7 % 43.0-75.0 [facility] No Panel Informationon 10-02 Eosinophils # (Auto) 0.3 10 3/uL 0.0-0.7 [facility] Immature Granulocyte # (Auto) 0.12 10 3/uL 0.00-0.03 [facility] Platelet mean volume Auto (B ld) [Entitic vol]on 10-03-2023 Platelet mean volume (Bld) [Entitic vol] 11.3 fL 9.5-13.5 [facility] Platelets Auto (Bld) [#/Vol] on 10-03-2023 Platelets (Bld) [#/Vol] 141 10 3/uL 150-450 [facility] RBC Auto (Bld) [#/Vol]on RBC (Bld) [#/Vol] 3.49 10 6/uL 4.70-6.10 [facility] Serum or plasma albumin/glob ulin mass ratioon 10-03-2023 Albumin/Globulin [Mass ratio] 0.5 {ratio} [facility] Serum or plasma anion gap de terminationon 10-03-2023 Anion gap [Moles/Vol] 13.9 mmol/L [facility] Basophils Auto (Bld) [#/Vol] on 10-02-2023 Basophils (Bld) [#/Vol] 0.0 10 3/uL 0.0-0.1 [facility] Basophils/100 WBC Auto (Bld) on 10-02-2023 Basophils/100 WBC (Bld) 0.4 % 0.2-2.0 [facility] Eosinophils/100 WBC Auto (Bl d)on 10-02-2023 Eosinophils/100 WBC (Bld) 2.2 % 0.9-7.0 [facility] Erythrocyte distribution wid th Auto (RBC) [Ratio]on 10-02-2023 Erythrocyte distribution width (RBC) [Ratio] 19.3 % 11.0-15.0 [facility] Estimated glomerular filtrat ion rate (GFR) non- Americanon 10-02-2023 GFR/1.73 sq M.predicted among non-blacks MDRD (S/P/Bld) [Vol rate/Area] 41 mL/min/{1.73_m2} >=60 [facility] Globulin Calc (S) [Mass/Vol] on 10-02-2023 Globulin (S) [Mass/Vol] 4.2 g/dL [facility] Hematocrit Auto (Bld) [Volum e fraction]on 10-02-2023 Hematocrit (Bld) [Volume fraction] 26.1 % 42.0-54.0 [facility] Hemoglobin [Mass/volume] in Bloodon 10-02-2023 Hemoglobin (Bld) [Mass/Vol] 7.8 g/dL 14.0-18.0 [facility] Guy 10-02-2023 L Specimen: [id number] Received: 10/03/23 Status: COLTON Yaplinda Num: [id number] Spec Type: Surgical Subm Dr: Paula Elias DPM, MS Tissues: A DIGIT AMPUTATION (FIRST METATARSAL RT FOOT) Procedures: HE/2, Gross/Micro L4, Decalcification Age/ Patient Sex Location Account Attending Physician Solomon Feldman SR 58/M LABELL [id number] Paula Elias DPM, MS SPEC NUM: [id number] RECD: 10/03/23 STATUS: COLTON YAPLinda NUM: [id number] SHAKIRA: 10/02/[address]: Paula Elias DPM, MS ENTERED: 10/03/[address] [facility] [address]: Jericho Carey SPEC TYPE: Surgical DEPT: RAMSEY MARCANO ORDERED: HE/2, Gross/Micro L4, Decalcification ORDERED: HE/2, Gross/Micro L4, Decalcification Pathological Diagnosis First metatarsal, right foot, resection: Acute osteomyelitis. Gross Description Received in formalin, labeled with the patient's name, date of and first metatarsal right foot is a 3.1 x 2.5 x 2.2 cm amputated portion of bone. No skin or toenail is present. There is minimal adherent soft tissue present which appears viable. The resection margin is smooth, flat and inked black. The opposite surface is covered by smooth and unremarkable articular cartilage. Sectioning into the specimen demonstrates firm yellow- pink spongy bone matrix. A phlebotomy services representative longitudinal section is bisected and submitted following decalcification in cassettes A1?A2. Clinical history: Right diabetic foot infection CPT Codes 72961 Specimen: [id number] Received: 10/03/23 Status: COLTON Lester Num: [id number] Spec Type: Surgical Subm Dr: Paula Elias DPM, MS Tissues: A DIGIT AMPUTATION (FIRST METATARSAL RT FOOT) Procedures: HE/2, Gross/Micro L4, Decalcification Patient: Solomon Feldman SR [id number] (Continued) Signed (signature on file) Padmini Linn MD 10/05/23 1426 Normal [facility] Laboratory - Chemistry and C hemistry - challengeon 10-02-2023 Albumin [Mass/Vol] 2.1 g/dL 3.4-5.0 [facility] ALP [Catalytic activity/Vol] 131 U/L 46-116 [facility] ALT [Catalytic activity/Vol] 17 U/L 16-63 [facility] AST [Catalytic activity/Vol] 13 U/L 15-37 [facility] Bilirubin [Mass/Vol] 0.3 mg/dL 0.2-1.0 [facility] Calcium [Mass/Vol] 6.6 mg/dL 8.5-10.1 [facility] Chloride [Moles/Vol] 105 mmol/L 98-107 [facility] CO2 [Moles/Vol] 24.3 mmol/L 21.0-32.0 [facility] Creatinine [Mass/Vol] 1.72 mg/dL 0.70-1.30 [facility] GFR/1.73 sq M.predicted MDRD (S/P/Bld) [Vol rate/Area] 50 mL/min/{1.73_m2} >=60 [facility] Glucose [Mass/Vol] 156 mg/dL 74-106 [facility] Magnesium [Mass/Vol] 1.5 mg/dL 1.8-2.4 [facility] Potassium [Moles/Vol] 4.0 mmol/L 3.5-5.1 [facility] Protein [Mass/Vol] 6.3 g/dL 6.4-8.2 [facility] Sodium [Moles/Vol] 139 mmol/L 136-145 [facility] Urea nitrogen [Mass/Vol] 27.0 mg/dL 7.0-18.0 [facility] Urea nitrogen/Creatinine [Mass ratio] 15.7 mg/mg [facility] Laboratory - Hematology and Cell countson 10-02-2023 Immature granulocytes/100 WBC (Bld) 0.4 % 0.0-0.5 [facility] ESR (Bld) [Velocity] 110 mm/h <=20 [facility] Laboratory - Microbiology an d Antimicrobial susceptibilityOrdered By: Truman Bryant on 10-02-2023 Microscopic observation Gram stain Nom (Unsp spec) [facility] Leukocytes [#/volume] correc jorge for nucleated erythrocytes in Blood by Automated counon 10-02-2023 WBC corrected for nucl RBC Auto (Bld) [#/Vol] 8.5 10 3/uL 4.0-11.0 [facility] Lymphocytes Auto (Bld) [#/Vo l]on 10-02-2023 Lymphocytes (Bld) [#/Vol] 1.5 10 3/uL 1.2-3.8 [facility] Lymphocytes/100 WBC Auto (Bl d)on 10-02-2023 Lymphocytes/100 WBC (Bld) 17.3 % 20.5-60.0 [facility] MCH Auto (RBC) [Entitic mass ]on 10-02-2023 MCH (RBC) [Entitic mass] 22.5 pg 25.9-34.0 [facility] MCHC Auto (RBC) [Mass/Vol]on 10-02-2023 MCHC (RBC) [Mass/Vol] 29.9 g/dL 29.9-35.2 [facility] MCV Auto (RBC) [Entitic vol] on 10-02-2023 MCV (RBC) [Entitic vol] 75.2 fL 80.0-94.0 [facility] Monocytes Auto (Bld) [#/Vol] on 10-02-2023 Monocytes (Bld) [#/Vol] 0.8 10 3/uL 0.3-0.8 [facility] Monocytes/100 WBC Auto (Bld) on 10-02-2023 Monocytes/100 WBC (Bld) 9.1 % 1.7-12.0 [facility] Neutrophils Auto (Bld) [#/Vo l]on 10-02-2023 Neutrophils (Bld) [#/Vol] 6.0 10 3/uL 1.4-6.5 [facility] Neutrophils/100 WBC Auto (Bl d)on 10-02-2023 Neutrophils/100 WBC (Bld) 70.6 % 43.0-75.0 [facility] No Panel Informationon 10-01 Eosinophils # (Auto) 0.2 10 3/uL 0.0-0.7 [facility] Immature Granulocyte # (Auto) 0.03 10 3/uL 0.00-0.03 [facility] Fungal Smear Result [facility] Miscellaneous Test Comment See comment [facility] Comment on above: Specimen Source: JONO TRT - Foot Right - Foot Rt - 604.000 No Panel InformationOrdered By: Truman Bryant on 10-02-2023 Tissue Culture [facility] No Panel InformationOrdered By: Paula Elias on 10-02-2023 Acid Fast Smear [facility] AFB Specimen Processing [facility] Platelet mean volume Auto (B ld) [Entitic vol]on 10-02-2023 Platelet mean volume (Bld) [Entitic vol] 10.6 fL 9.5-13.5 [facility] Platelets Auto (Bld) [#/Vol] on 10-02-2023 Platelets (Bld) [#/Vol] 142 10 3/uL 150-450 [facility] RBC Auto (Bld) [#/Vol]on RBC (Bld) [#/Vol] 3.47 10 6/uL 4.70-6.10 [facility] Serum or plasma albumin/glob ulin mass ratioon 10-02-2023 Albumin/Globulin [Mass ratio] 0.5 {ratio} [facility] Serum or plasma anion gap de terminationon 10-02-2023 Anion gap [Moles/Vol] 13.7 mmol[facility] Auto (Bld) [#/Vol] on 10-01-2023 Basophils (Bld) [#/Vol] 0.0 10 3/uL 0.0-0.1 [facility] Basophils/100 WBC Auto (Bld) on 10-01-2023 Basophils/100 WBC (Bld) 0.4 % 0.2-2.0 [facility] Eosinophils/100 WBC Auto (Bl d)on 10-01-2023 Eosinophils/100 WBC (Bld) 1.7 % 0.9-7.0 [facility] Erythrocyte distribution wid th Auto (RBC) [Ratio]on 10-01-2023 Erythrocyte distribution width (RBC) [Ratio] 18.5 % 11.0-15.0 [facility] Estimated glomerular filtrat ion rate (GFR) non- Americanon 10-01-2023 GFR/1.73 sq M.predicted among non-blacks MDRD (S/P/Bld) [Vol rate/Area] 27 mL/min/{1.73_m2} >=60 [facility] Globulin Calc (S) [Mass/Vol] on 10-01-2023 Globulin (S) [Mass/Vol] 4.0 g/dL [facility] Hematocrit Auto (Bld) [Volum e fraction]on 10-01-2023 Hematocrit (Bld) [Volume fraction] 26.5 % 42.0-54.0 [facility] Hemoglobin [Mass/volume] in Bloodon 10-01-2023 Hemoglobin (Bld) [Mass/Vol] 8.0 g/dL 14.0-18.0 [facility] Laboratory - Chemistry and C hemistry - challengeon 10-01-2023 Lactate [Moles/Vol] 1.8 mmol/L 0.4-2.0 [facility] Albumin [Mass/Vol] 1.9 g/dL 3.4-5.0 [facility] ALP [Catalytic activity/Vol] 113 U/L 46-116 [facility] ALT [Catalytic activity/Vol] 17 U/L 16-63 [facility] AST [Catalytic activity/Vol] 14 U/L 15-37 [facility] Bilirubin [Mass/Vol] 0.3 mg/dL 0.2-1.0 [facility] Calcium [Mass/Vol] 5.7 mg/dL 8.5-10.1 [facility] Comment on above: RESULTS CALLED TO Patricio Tsang)@BY Marybel Hawkins MLT at 0619 Chloride [Moles/Vol] 102 mmol/L 98-107 [facility] CO2 [Moles/Vol] 20.4 mmol/L 21.0-32.0 [facility] Creatinine [Mass/Vol] 2.46 mg/dL 0.70-1.30 [facility] GFR/1.73 sq M.predicted MDRD (S/P/Bld) [Vol rate/Area] 33 mL/min/{1.73_m2} >=60 [facility] Glucose [Mass/Vol] 67 mg/dL 74-106 [facility] Magnesium [Mass/Vol] 0.8 mg/dL 1.8-2.4 [facility] Comment on above: RESULTS CALLED TO Patricio CORREA)@BY [address] at 0601 Potassium [Moles/Vol] 3.1 mmol/L 3.5-5.1 [facility] Protein [Mass/Vol] 5.9 g/dL 6.4-8.2 [facility] Sodium [Moles/Vol] 138 mmol/L 136-145 [facility] Urea nitrogen [Mass/Vol] 28.0 mg/dL 7.0-18.0 [facility] Urea nitrogen/Creatinine [Mass ratio] 11.4 mg/mg [facility] Laboratory - Hematology and Cell countson 10-01-2023 ESR (Bld) [Velocity] 96 mm/h <=20 [facility] Immature granulocytes/100 WBC (Bld) 0.6 % 0.0-0.5 [facility] Leukocytes [#/volume] correc jorge for nucleated erythrocytes in Blood by Automated counon 10-01-2023 WBC corrected for nucl RBC Auto (Bld) [#/Vol] 10.0 10 3/uL 4.0-11.0 [facility] Lymphocytes Auto (Bld) [#/Vo l]on 10-01-2023 Lymphocytes (Bld) [#/Vol] 1.3 10 3/uL 1.2-3.8 [facility] Lymphocytes/100 WBC Auto (Bl d)on 10-01-2023 Lymphocytes/100 WBC (Bld) 12.8 % 20.5-60.0 [facility] MCH Auto (RBC) [Entitic mass ]on 10-01-2023 MCH (RBC) [Entitic mass] 22.4 pg 25.9-34.0 [facility] MCHC Auto (RBC) [Mass/Vol]on 10-01-2023 MCHC (RBC) [Mass/Vol] 30.2 g/dL 29.9-35.2 [facility] MCV Auto (RBC) [Entitic vol] on 10-01-2023 MCV (RBC) [Entitic vol] 74.2 fL 80.0-94.0 [facility] Monocytes Auto (Bld) [#/Vol] on 10-01-2023 Monocytes (Bld) [#/Vol] 0.7 10 3/uL 0.3-0.8 [facility] Monocytes/100 WBC Auto (Bld) on 10-01-2023 Monocytes/100 WBC (Bld) 6.9 % 1.7-12.0 [facility] Neutrophils Auto (Bld) [#/Vo l]on 10-01-2023 Neutrophils (Bld) [#/Vol] 7.8 10 3/uL 1.4-6.5 [facility] Neutrophils/100 WBC Auto (Bl d)on 10-01-2023 Neutrophils/100 WBC (Bld) 77.6 % 43.0-75.0 [facility] No Panel Informationon 09-30 C-Reactive Protein, Quantitative 10.58 mg/dL <=0.50 [facility] Eosinophils # (Auto) 0.2 10 3/uL 0.0-0.7 [facility] Immature Granulocyte # (Auto) 0.06 10 3/uL 0.00-0.03 [facility] Troponin I High Sensitivity 8.3 pg/mL 4.0-76.1 [facility] Comment on above: CUT-OFF POINTS HAVE BEEN ESTABLISHED BASED ON THE FOURTHUNIVERSAL DEFINITION OF MYOCARDIAL INFARCTION. THE UPPERREFERENCE LIMIT (URL) OF TROPONIN, DEFINED THE 99THPERCENTILE OF cTnI DISTRIBUTION IN A REFERENCE POPULATION,HAS BEEN CONFIRMED THE DECISION THRESHOLD FOR MIDIAGNOSIS.99TH PERCENTILE = 76.2 PG/MLNOTE: HIGH-SENSITIVITY TROPONIN ASSAY IS NOT INTENDED TO BEUSED IN ISOLATION BUT SHOULD BE INTERPRETED IN CONJUNCTIONWITH OTHER DIAGNOSTIC AND CLINICAL INFORMATION. Venous Blood Partial Pressure CO2 30.4 mm[Hg] 40.0-52.0 [facility] Venous Blood pH 7.421 7.330-7.43 0 [facility] Platelet mean volume Auto (B ld) [Entitic vol]on 10-01-2023 Platelet mean volume (Bld) [Entitic vol] 11.2 fL 9.5-13.5 [facility] Platelets Auto (Bld) [#/Vol] on 10-01-2023 Platelets (Bld) [#/Vol] 164 10 3/uL 150-450 [facility] RBC Auto (Bld) [#/Vol]on RBC (Bld) [#/Vol] 3.57 10 6/uL 4.70-6.10 [facility] Serum or plasma albumin/glob ulin mass ratioon 10-01-2023 Albumin/Globulin [Mass ratio] 0.5 {ratio} [facility] Serum or plasma anion gap de terminationon 10-01-2023 Anion gap [Moles/Vol] 18.7 mmol/L [facility] Automated epithelial cells c ount in urine sediment (number/area)on 09-30-2023 Epithelial cells Auto (Urine sed) [#/Area] NONE SEEN #/LPF NONE/RARE [facility] Automated leukocytes count i n urine sediment (number/area)on 09-30-2023 WBC Auto (Urine sed) [#/Area] NONE SEEN #/HPF 0-2 [facility] Automated urine specific gra vity by refractometryon 09-30-2023 Specific gravity Refractometry automated (U) [Rel density] <=1.005 1.005-1.02 5 [facility] Basophils Auto (Bld) [#/Vol] on 09-30-2023 Basophils (Bld) [#/Vol] 0.1 10 3/uL 0.0-0.1 [facility] Basophils/100 WBC Auto (Bld) on 09-30-2023 Basophils/100 WBC (Bld) 0.4 % 0.2-2.0 [facility] Bilirubin Auto test strip (U ) [Mass/Vol]on 09-30-2023 Bilirubin (U) [Mass/Vol] Negative NEGATIVE [facility] Casts typing in urine sedime nt by light microscopyon 09-30-2023 Casts LM Nom (Urine sed) NONE SEEN #/LPF NONE SEEN [facility] Color Auto (U)on 09-30-2023 Color (U) LT. YELLOW YELLOW [facility] Eosinophils/100 WBC Auto (Bl d)on 09-30-2023 Eosinophils/100 WBC (Bld) 1.4 % 0.9-7.0 [facility] Erythrocyte distribution wid th Auto (RBC) [Ratio]on 09-30-2023 Erythrocyte distribution width (RBC) [Ratio] 19.0 % 11.0-15.0 [facility] Estimated glomerular filtrat ion rate (GFR) non- Americanon 09-30-2023 GFR/1.73 sq M.predicted among non-blacks MDRD (S/P/Bld) [Vol rate/Area] 19 mL/min/{1.73_m2} >=60 [facility] Globulin Calc (S) [Mass/Vol] on 09-30-2023 Globulin (S) [Mass/Vol] 4.8 g/dL [facility] Hematocrit Auto (Bld) [Volum e fraction]on 09-30-2023 Hematocrit (Bld) [Volume fraction] 32.9 % 42.0-54.0 [facility] Hemoglobin [Mass/volume] in Bloodon 09-30-2023 Hemoglobin (Bld) [Mass/Vol] 10.0 g/dL 14.0-18.0 [facility] INR in Platelet poor plasma by Coagulation assayon 09-30-2023 INR Coag (PPP) [Relative time] 1.23 {INR} [facility] Comment on above: DESIRED INR:2.0-3.0 CONDITIONS NOT LISTED BELOW2.5-3.5 FOR PROSTHETIC HEART VALVE REPLACEMENT2.5-3.5 RECURRENT THROMBOSIS Ketones Auto test strip (U) [Mass/Vol]on 09-30-2023 Ketones (U) [Mass/Vol] Negative NEGATIVE [facility] - Chemistry and C hemistry - challengeon 09-30-2023 Lactate [Moles/Vol] 4.2 mmol/L 0.4-2.0 [facility] Comment on above: RESULTS CALLED TO Patricio CORREA)@BY [address] at 2312 Albumin [Mass/Vol] 2.4 g/dL 3.4-5.0 [facility] ALP [Catalytic activity/Vol] 145 U/L 46-116 [facility] ALT [Catalytic activity/Vol] 17 U/L 16-63 [facility] AST [Catalytic activity/Vol] 21 U/L 15-37 [facility] Bilirubin [Mass/Vol] 0.4 mg/dL 0.2-1.0 [facility] Calcium [Mass/Vol] 5.8 mg/dL 8.5-10.1 [facility] Comment on above: RESULTS CALLED TO GIOVANNA CASTANON @BY Verona Hanson at 1645 Chloride [Moles/Vol] 97 mmol/L 98-107 [facility] CO2 [Moles/Vol] 18.3 mmol/L 21.0-32.0 [facility] Creatinine [Mass/Vol] 3.43 mg/dL 0.70-1.30 [facility] GFR/1.73 sq M.predicted MDRD (S/P/Bld) [Vol rate/Area] 22 mL/min/{1.73_m2} >=60 [facility] Glucose [Mass/Vol] 208 mg/dL 74-106 [facility] Magnesium [Mass/Vol] 0.5 mg/dL 1.8-2.4 [facility] Comment on above: RESULTS CALLED TO Giovanna Castanon @BY Marybel Hawkins MLT [phone] Natriuretic peptide B (Bld) [Mass/Vol] 611.0 pg/mL <=900.0 [facility] Potassium [Moles/Vol] 3.9 mmol/L 3.5-5.1 [facility] Protein [Mass/Vol] 7.2 g/dL 6.4-8.2 [facility] Sodium [Moles/Vol] 137 mmol/L 136-145 [facility] Urea nitrogen [Mass/Vol] 34.0 mg/dL 7.0-18.0 [facility] Urea nitrogen/Creatinine [Mass ratio] 9.9 mg/mg [facility] Laboratory - Hematology and Cell countson 09-30-2023 ESR (Bld) [Velocity] 130 mm/h <=20 [facility] Immature granulocytes/100 WBC (Bld) 0.6 % 0.0-0.5 [facility] Leukocytes [#/volume] correc jorge for nucleated erythrocytes in Blood by Automated counon 09-30-2023 WBC corrected for nucl RBC Auto (Bld) [#/Vol] 13.9 10 3/uL 4.0-11.0 [facility] Lymphocytes Auto (Bld) [#/Vo l]on 09-30-2023 Lymphocytes (Bld) [#/Vol] 1.4 10 3/uL 1.2-3.8 [facility] Lymphocytes/100 WBC Auto (Bl d)on 09-30-2023 Lymphocytes/100 WBC (Bld) 10.1 % 20.5-60.0 [facility] MCH Auto (RBC) [Entitic mass ]on 09-30-2023 MCH (RBC) [Entitic mass] 22.7 pg 25.9-34.0 [facility] MCHC Auto (RBC) [Mass/Vol]on 09-30-2023 MCHC (RBC) [Mass/Vol] 30.4 g/dL 29.9-35.2 [facility] MCV Auto (RBC) [Entitic vol] on 09-30-2023 MCV (RBC) [Entitic vol] 74.6 fL 80.0-94.0 [facility] Monocytes Auto (Bld) [#/Vol] on 09-30-2023 Monocytes (Bld) [#/Vol] 0.9 10 3/uL 0.3-0.8 [facility] Monocytes/100 WBC Auto (Bld) on 09-30-2023 Monocytes/100 WBC (Bld) 6.7 % 1.7-12.0 [facility] Mucus LM Ql (Urine sed)on Mucus Ql (Urine sed) NONE SEEN NONE SEEN [facility] Neutrophils Auto (Bld) [#/Vo l]on 09-30-2023 Neutrophils (Bld) [#/Vol] 11.2 10 3/uL 1.4-6.5 [facility] Neutrophils/100 WBC Auto (Bl d)on 09-30-2023 Neutrophils/100 WBC (Bld) 80.8 % 43.0-75.0 [facility] No Panel Informationon 09-29 Troponin I High Sensitivity 7.9 pg/mL 4.0-76.1 [facility] Comment on above: CUT-OFF POINTS HAVE BEEN ESTABLISHED BASED ON THE FOURTHUNIVERSAL DEFINITION OF MYOCARDIAL INFARCTION. THE UPPERREFERENCE LIMIT (URL) OF TROPONIN, DEFINED THE 99THPERCENTILE OF cTnI DISTRIBUTION IN A REFERENCE POPULATION,HAS BEEN CONFIRMED THE DECISION THRESHOLD FOR MIDIAGNOSIS.99TH PERCENTILE = 76.2 PG/MLNOTE: HIGH-SENSITIVITY TROPONIN ASSAY IS NOT INTENDED TO BEUSED IN ISOLATION BUT SHOULD BE INTERPRETED IN CONJUNCTIONWITH OTHER DIAGNOSTIC AND CLINICAL INFORMATION. Venous Blood Partial Pressure CO2 29.6 mm[Hg] 40.0-52.0 [facility] Venous Blood pH 7.405 7.330-7.43 0 [facility] Urine Culture Reflexed NO [facility] C-Reactive Protein, Quantitative 14.76 mg/dL <=0.50 [facility] Eosinophils # (Auto) 0.2 10 3/uL 0.0-0.7 Fir [facility] Immature Granulocyte # (Auto) 0.09 10 3/uL 0.00-0.03 [facility] No Panel InformationOrdered By: Chandrika Castanon on 09-30-2023 Blood Culture 2 [facility] Wound Culture [facility] Blood Culture 1 [facility] Platelet mean volume Auto (B ld) [Entitic vol]on 09-30-2023 Platelet mean volume (Bld) [Entitic vol] 10.9 fL 9.5-13.5 [facility] Platelets Auto (Bld) [#/Vol] on 09-30-2023 Platelets (Bld) [#/Vol] 227 10 3/uL 150-450 [facility] Protein Auto test strip (U) [Mass/Vol]on 09-30-2023 Protein (U) [Mass/Vol] Negative NEG/TRACE [facility] Prothrombin time (PT)on 09-04 PT Coag (PPP) [Time] 12.9 s 9.0-11.6 [facility] RBC Auto (Bld) [#/Vol]on RBC (Bld) [#/Vol] 4.41 10 6/uL 4.70-6.10 [facility] Serum or plasma albumin/glob ulin mass ratioon 09-30-2023 Albumin/Globulin [Mass ratio] 0.5 {ratio} [facility] Serum or plasma anion gap de terminationon 09-30-2023 Anion gap [Moles/Vol] 25.6 mmol/L [facility] gravity Auto test s trip (U) [Rel density]on 09-30-2023 Specific gravity (U) [Rel density] CLEAR CLEAR [facility] Urine bacteria detection by automated methodon 09-30-2023 Bacteria Auto Ql (U) NONE SEEN #/HPF NONE SEEN [facility] Urine glucose measurement by test strip (mass/volume)on 09-30-2023 Glucose Test strip (U) [Mass/Vol] 500 mg/dL NEGATIVE [facility] Urine hemoglobin detection b y automated test stripon 09-30-2023 Hemoglobin Auto test strip Ql (U) TRACE-I NEGATIVE [facility] Urine nitrite detection by a utomated test stripon 09-30-2023 Nitrite Auto test strip Ql (U) Negative NEGATIVE [facility] Urine sediment crystal ident ification by light microscopyon 09-30-2023 Crystals LM Nom (Urine sed) None Seen #/HPF None Seen [facility] Urine sediment leukocyte cou nt by microscopy (number/high power field)on 09-30-2023 WBC LM.HPF (Urine sed) [#/Area] NONE SEEN #/HPF NONE SEEN [facility] Urobilinogen Auto test strip (U) [Mass/Vol]on 09-30-2023 Urobilinogen Qn (U) 0.2 {Brendan'U}/dL 0.2-1.0 [facility] pH Auto test strip (U)on pH (U) 5.5 [pH] 5.0-9.0 [facility] Guy 09-21-2023 L Specimen: [id number] Received: 09/21/23 Status: [facility] Num: [id number] Spec Type: Surgical Subm Dr: Paula Elias,DPM, MS Tissues: A Bone Fragments - Other than Path Fracture Procedures: HE, Gross/Micro L3, Decalcification Age/ Patient Sex Location Account Attending Physician Solomon Feldman SR 58/M LABELL [id number] Paula Elias DPM, MS SPEC NUM: [id number] RECD: 09/21/23 STATUS: [facility] NUM: [id number] SHAKIRA: 09/21/235 [facility] DR: Paula Elias DPM, MS ENTERED: 09/21/[address] [facility] [address]: SPEC TYPE: Surgical DEPT: RAMSEY MARCANO ENTERED BY: [id number] RECV BY: [id number] ORDERED: HE, Gross/Micro L3, Decalcification ORDERED: HE, Gross/Micro L3, Decalcification Pathological Diagnosis Right foot [...] excisional debridement with skin substitute. CPT Codes 43297, 90662 Specimen: [id number] Received: 09/21/23 Status: [facility] Num: [id number] Spec Type: Surgical Subm Dr: Paula Elias,LINDSEY, MS Tissues: A Bone Fragments - Other than Path Fracture Procedures: HE, Gross/Micro L3, Decalcification Patient: Solomon Feldman SR [id number] (Continued) Signed (signature on file) Victor Hugo Sotelo MD 09/26/23 0843 Normal [facility] Laboratory - Microbiology an d Antimicrobial susceptibilityOrdered By: Jenaro Lynch on 09-21-2023 Microscopic observation Gram stain Nom (Unsp spec) [facility] Activated partial thrombopla stin time (aPTT) in platelet poor plasma by coagulation aon 09-18-2023 aPTT Coag (PPP) [Time] 32.0 s 22.3-36.2 [facility] Basophils Auto (Bld) [#/Vol] on 09-18-2023 Basophils (Bld) [#/Vol] 0.1 10 3/uL 0.0-0.1 [facility] Basophils/100 WBC Auto (Bld) on 09-18-2023 Basophils/100 WBC (Bld) 0.9 % 0.2-2.0 [facility] Eosinophils/100 WBC Auto (Bl d)on 09-18-2023 Eosinophils/100 WBC (Bld) 2.3 % 0.9-7.0 [facility] Erythrocyte distribution wid th Auto (RBC) [Ratio]on 09-18-2023 Erythrocyte distribution width (RBC) [Ratio] 18.8 % 11.0-15.0 [facility] Estimated glomerular filtrat ion rate (GFR) non- Americanon 09-18-2023 GFR/1.73 sq M.predicted among non-blacks MDRD (S/P/Bld) [Vol rate/Area] 27 mL/min/{1.73_m2} >=60 [facility] Hematocrit Auto (Bld) [Volum e fraction]on 09-18-2023 Hematocrit (Bld) [Volume fraction] 35.0 % 42.0-54.0 [facility] Hemoglobin [Mass/volume] in Bloodon 09-18-2023 Hemoglobin (Bld) [Mass/Vol] 10.3 g/dL 14.0-18.0 [facility] INR in Platelet poor plasma by Coagulation assayon 09-18-2023 INR Coag (PPP) [Relative time] 1.08 {INR} [facility] Comment on above: DESIRED INR:2.0-3.0 CONDITIONS NOT LISTED BELOW2.5-3.5 FOR PROSTHETIC HEART VALVE REPLACEMENT2.5-3.5 RECURRENT THROMBOSIS Laboratory - Chemistry and C hemistry - challengeon 09-18-2023 Calcium [Mass/Vol] 8.9 mg/dL 8.5-10.1 [facility] Chloride [Moles/Vol] 97 mmol/L 98-107 [facility] CO2 [Moles/Vol] 28.2 mmol/L 21.0-32.0 [facility] Creatinine [Mass/Vol] 2.47 mg/dL 0.70-1.30 [facility] GFR/1.73 sq M.predicted MDRD (S/P/Bld) [Vol rate/Area] 33 mL/min/{1.73_m2} >=60 [facility] Glucose [Mass/Vol] 200 mg/dL 74-106 [facility] Potassium [Moles/Vol] 3.7 mmol/L 3.5-5.1 [facility] Sodium [Moles/Vol] 137 mmol/L 136-145 [facility] Urea nitrogen [Mass/Vol] 23.0 mg/dL 7.0-18.0 [facility] Urea nitrogen/Creatinine [Mass ratio] 9.3 mg/mg [facility] Laboratory - Hematology and Cell countson 09-18-2023 Immature granulocytes/100 WBC (Bld) 0.6 % 0.0-0.5 [facility] Leukocytes [#/volume] correc jorge for nucleated erythrocytes in Blood by Automated counon 09-18-2023 WBC corrected for nucl RBC Auto (Bld) [#/Vol] 12.4 10 3/uL 4.0-11.0 [facility] Lymphocytes Auto (Bld) [#/Vo l]on 09-18-2023 Lymphocytes (Bld) [#/Vol] 2.4 10 3/uL 1.2-3.8 [facility] Lymphocytes/100 WBC Auto (Bl d)on 09-18-2023 Lymphocytes/100 WBC (Bld) 19.6 % 20.5-60.0 [facility] MCH Auto (RBC) [Entitic mass ]on 09-18-2023 MCH (RBC) [Entitic mass] 22.2 pg 25.9-34.0 [facility] MCHC Auto (RBC) [Mass/Vol]on 09-18-2023 MCHC (RBC) [Mass/Vol] 29.4 g/dL 29.9-35.2 [facility] MCV Auto (RBC) [Entitic vol] on 09-18-2023 MCV (RBC) [Entitic vol] 75.3 fL 80.0-94.0 [facility] Monocytes Auto (Bld) [#/Vol] on 09-18-2023 Monocytes (Bld) [#/Vol] 1.2 10 3/uL 0.3-0.8 [facility] Monocytes/100 WBC Auto (Bld) on 09-18-2023 Monocytes/100 WBC (Bld) 10.0 % 1.7-12.0 [facility] Neutrophils Auto (Bld) [#/Vo l]on 09-18-2023 Neutrophils (Bld) [#/Vol] 8.2 10 3/uL 1.4-6.5 [facility] Neutrophils/100 WBC Auto (Bl d)on 09-18-2023 Neutrophils/100 WBC (Bld) 66.6 % 43.0-75.0 [facility] No Panel Informationon 09-17 Eosinophils # (Auto) 0.3 10 3/uL 0.0-0.7 [facility] Immature Granulocyte # (Auto) 0.07 10 3/uL 0.00-0.03 [facility] Platelet mean volume Auto (B ld) [Entitic vol]on 09-18-2023 Platelet mean volume (Bld) [Entitic vol] 10.9 fL 9.5-13.5 [facility] Platelets Auto (Bld) [#/Vol] on 09-18-2023 Platelets (Bld) [#/Vol] 300 10 3/uL 150-450 [facility] Prothrombin time (PT)on 09-03 PT Coag (PPP) [Time] 11.4 s 9.0-11.6 [facility] RBC Auto (Bld) [#/Vol]on RBC (Bld) [#/Vol] 4.65 10 6/uL 4.70-6.10 [facility] Serum or plasma anion gap de terminationon 09-18-2023 Anion gap [Moles/Vol] 15.5 mmol/L Fi [facility] Laboratory - Microbiology an d Antimicrobial susceptibilityOrdered By: Jenaro Lynch on 08-10-2023 Microscopic observation Gram stain Nom (Unsp spec) [facility] No Panel Informationon 08-09 Fungal Smear Result [facility] Miscellaneous Test Comment See comment [facility] Comment on above: Specimen Source: JONO TRT - Foot Right - Foot Rt - [id number] No Panel InformationOrdered By: Jenaro Lynch on 08-10-2023 Acid Fast Culture [facility] Acid Fast Smear [facility] AFB Specimen Processing [facility] Tissue Culture [facility] Basophils Auto (Bld) [#/Vol] on 08-07-2023 Basophils (Bld) [#/Vol] 0.1 10 3/uL 0.0-0.1 [facility] Basophils/100 WBC Auto (Bld) on 08-07-2023 Basophils/100 WBC (Bld) 0.7 % 0.2-2.0 [facility] Eosinophils/100 WBC Auto (Bl d)on 08-07-2023 Eosinophils/100 WBC (Bld) 3.9 % 0.9-7.0 [facility] Erythrocyte distribution wid th Auto (RBC) [Ratio]on 08-07-2023 Erythrocyte distribution width (RBC) [Ratio] 16.9 % 11.0-15.0 [facility] Estimated glomerular filtrat ion rate (GFR) non- Americanon 08-07-2023 GFR/1.73 sq M.predicted among non-blacks MDRD (S/P/Bld) [Vol rate/Area] 42 mL/min/{1.73_m2} >=60 [facility] Globulin Calc (S) [Mass/Vol] on 08-07-2023 Globulin (S) [Mass/Vol] 4.0 g/dL [facility] Hematocrit Auto (Bld) [Volum e fraction]on 08-07-2023 Hematocrit (Bld) [Volume fraction] 31.5 % 42.0-54.0 [facility] Hemoglobin [Mass/volume] in Bloodon 08-07-2023 Hemoglobin (Bld) [Mass/Vol] 9.4 g/dL 14.0-18.0 [facility] Laboratory - Chemistry and C hemistry - challengeon 08-07-2023 Albumin [Mass/Vol] 2.1 g/dL 3.4-5.0 [facility] ALP [Catalytic activity/Vol] 144 U/L 46-116 [facility] ALT [Catalytic activity/Vol] 21 U/L 16-63 [facility] AST [Catalytic activity/Vol] 25 U/L 15-37 [facility] Bilirubin [Mass/Vol] 0.4 mg/dL 0.2-1.0 [facility] Calcium [Mass/Vol] 8.1 mg/dL 8.5-10.1 [facility] Chloride [Moles/Vol] 102 mmol/L 98-107 [facility] CO2 [Moles/Vol] 24.7 mmol/L 21.0-32.0 [facility] Creatinine [Mass/Vol] 1.70 mg/dL 0.70-1.30 [facility] GFR/1.73 sq M.predicted MDRD (S/P/Bld) [Vol rate/Area] 50 mL/min/{1.73_m2} >=60 [facility] Glucose [Mass/Vol] 188 mg/dL 74-106 [facility] Potassium [Moles/Vol] 4.6 mmol/L 3.5-5.1 [facility] Protein [Mass/Vol] 6.1 g/dL 6.4-8.2 [facility] Sodium [Moles/Vol] 135 mmol/L 136-145 [facility] Urea nitrogen [Mass/Vol] 33.0 mg/dL 7.0-18.0 [facility] Urea nitrogen/Creatinine [Mass ratio] 19.4 mg/mg [facility] Laboratory - Hematology and Cell countson 08-07-2023 Immature granulocytes/100 WBC (Bld) 0.7 % 0.0-0.5 [facility] Leukocytes [#/volume] correc jorge for nucleated erythrocytes in Blood by Automated counon 08-07-2023 WBC corrected for nucl RBC Auto (Bld) [#/Vol] 12.0 10 3/uL 4.0-11.0 [facility] Lymphocytes Auto (Bld) [#/Vo l]on 08-07-2023 Lymphocytes (Bld) [#/Vol] 1.5 10 3/uL 1.2-3.8 [facility] Lymphocytes/100 WBC Auto (Bl d)on 08-07-2023 Lymphocytes/100 WBC (Bld) 12.4 % 20.5-60.0 [facility] MCH Auto (RBC) [Entitic mass ]on 08-07-2023 MCH (RBC) [Entitic mass] 22.5 pg 25.9-34.0 [facility] MCHC Auto (RBC) [Mass/Vol]on 08-07-2023 MCHC (RBC) [Mass/Vol] 29.8 g/dL 29.9-35.2 [facility] MCV Auto (RBC) [Entitic vol] on 08-07-2023 MCV (RBC) [Entitic vol] 75.4 fL 80.0-94.0 [facility] Monocytes Auto (Bld) [#/Vol] on 08-07-2023 Monocytes (Bld) [#/Vol] 1.2 10 3/uL 0.3-0.8 [facility] Monocytes/100 WBC Auto (Bld) on 08-07-2023 Monocytes/100 WBC (Bld) 10.1 % 1.7-12.0 [facility] Neutrophils Auto (Bld) [#/Vo l]on 08-07-2023 Neutrophils (Bld) [#/Vol] 8.7 10 3/uL 1.4-6.5 [facility] Neutrophils/100 WBC Auto (Bl d)on 08-07-2023 Neutrophils/100 WBC (Bld) 72.2 % 43.0-75.0 [facility] No Panel Informationon 08-06 Eosinophils # (Auto) 0.5 10 3/uL 0.0-0.7 [facility] Immature Granulocyte # (Auto) 0.09 10 3/uL 0.00-0.03 [facility] Platelet mean volume Auto (B ld) [Entitic vol]on 08-07-2023 Platelet mean volume (Bld) [Entitic vol] 11.7 fL 9.5-13.5 [facility] Platelets Auto (Bld) [#/Vol] on 08-07-2023 Platelets (Bld) [#/Vol] 222 10 3/uL 150-450 [facility] RBC Auto (Bld) [#/Vol]on RBC (Bld) [#/Vol] 4.18 10 6/uL 4.70-6.10 [facility] Serum or plasma albumin/glob ulin mass ratioon 08-07-2023 Albumin/Globulin [Mass ratio] 0.5 {ratio} [facility] Serum or plasma anion gap de terminationon 08-07-2023 Anion gap [Moles/Vol] 12.9 mmol/L [facility] Basophils Auto (Bld) [#/Vol] on 08-06-2023 Basophils (Bld) [#/Vol] 0.1 10 3/uL 0.0-0.1 [facility] Basophils/100 WBC Auto (Bld) on 08-06-2023 Basophils/100 WBC (Bld) 0.7 % 0.2-2.0 [facility] Eosinophils/100 WBC Auto (Bl d)on 08-06-2023 Eosinophils/100 WBC (Bld) 3.3 % 0.9-7.0 [facility] Erythrocyte distribution wid th Auto (RBC) [Ratio]on 08-06-2023 Erythrocyte distribution width (RBC) [Ratio] 17.0 % 11.0-15.0 [facility] Estimated glomerular filtrat ion rate (GFR) non- Americanon 08-06-2023 GFR/1.73 sq M.predicted among non-blacks MDRD (S/P/Bld) [Vol rate/Area] 36 mL/min/{1.73_m2} >=60 [facility] Globulin Calc (S) [Mass/Vol] on 08-06-2023 Globulin (S) [Mass/Vol] 4.0 g/dL [facility] Hematocrit Auto (Bld) [Volum e fraction]on 08-06-2023 Hematocrit (Bld) [Volume fraction] 30.1 % 42.0-54.0 [facility] Hemoglobin [Mass/volume] in Bloodon 08-06-2023 Hemoglobin (Bld) [Mass/Vol] 8.8 g/dL 14.0-18.0 [facility] Laboratory - Chemistry and C hemistry - challengeon 08-06-2023 Albumin [Mass/Vol] 2.0 g/dL 3.4-5.0 [facility] ALP [Catalytic activity/Vol] 127 U/L 46-116 [facility] ALT [Catalytic activity/Vol] 14 U/L 16-63 [facility] AST [Catalytic activity/Vol] 16 U/L 15-37 [facility] Bilirubin [Mass/Vol] 0.4 mg/dL 0.2-1.0 [facility] Calcium [Mass/Vol] 7.9 mg/dL 8.5-10.1 [facility] Chloride [Moles/Vol] 99 mmol/L 98-107 [facility] CO2 [Moles/Vol] 25.0 mmol/L 21.0-32.0 [facility] Creatinine [Mass/Vol] 1.95 mg/dL 0.70-1.30 [facility] GFR/1.73 sq M.predicted MDRD (S/P/Bld) [Vol rate/Area] 43 mL/min/{1.73_m2} >=60 [facility] Glucose [Mass/Vol] 297 mg/dL 74-106 [facility] Potassium [Moles/Vol] 4.4 mmol/L 3.5-5.1 [facility] Protein [Mass/Vol] 6.0 g/dL 6.4-8.2 [facility] Sodium [Moles/Vol] 133 mmol/L 136-145 [facility] Urea nitrogen [Mass/Vol] 28.0 mg/dL 7.0-18.0 [facility] Urea nitrogen/Creatinine [Mass ratio] 14.4 mg/mg [facility] Laboratory - Hematology and Cell countson 08-06-2023 Immature granulocytes/100 WBC (Bld) 0.4 % 0.0-0.5 [facility] Leukocytes [#/volume] correc jorge for nucleated erythrocytes in Blood by Automated counon 08-06-2023 WBC corrected for nucl RBC Auto (Bld) [#/Vol] 10.1 10 3/uL 4.0-11.0 [facility] Lymphocytes Auto (Bld) [#/Vo l]on 08-06-2023 Lymphocytes (Bld) [#/Vol] 1.5 10 3/uL 1.2-3.8 [facility] Lymphocytes/100 WBC Auto (Bl d)on 08-06-2023 Lymphocytes/100 WBC (Bld) 14.4 % 20.5-60.0 [facility] MCH Auto (RBC) [Entitic mass ]on 08-06-2023 MCH (RBC) [Entitic mass] 22.5 pg 25.9-34.0 [facility] MCHC Auto (RBC) [Mass/Vol]on 08-06-2023 MCHC (RBC) [Mass/Vol] 29.2 g/dL 29.9-35.2 [facility] MCV Auto (RBC) [Entitic vol] on 08-06-2023 MCV (RBC) [Entitic vol] 77.0 fL 80.0-94.0 [facility] Monocytes Auto (Bld) [#/Vol] on 08-06-2023 Monocytes (Bld) [#/Vol] 1.1 10 3/uL 0.3-0.8 [facility] Monocytes/100 WBC Auto (Bld) on 08-06-2023 Monocytes/100 WBC (Bld) 10.4 % 1.7-12.0 [facility] Neutrophils Auto (Bld) [#/Vo l]on 08-06-2023 Neutrophils (Bld) [#/Vol] 7.2 10 3/uL 1.4-6.5 [facility] Neutrophils/100 WBC Auto (Bl d)on 08-06-2023 Neutrophils/100 WBC (Bld) 70.8 % 43.0-75.0 [facility] No Panel Informationon 08-05 Vancomycin Level Trough 13.6 ug/mL 5.0-20.0 [facility] Eosinophils # (Auto) 0.3 10 3/uL 0.0-0.7 [facility] Immature Granulocyte # (Auto) 0.04 10 3/uL 0.00-0.03 [facility] Platelet mean volume Auto (B ld) [Entitic vol]on 08-06-2023 Platelet mean volume (Bld) [Entitic vol] 12.2 fL 9.5-13.5 [facility] Platelets Auto (Bld) [#/Vol] on 08-06-2023 Platelets (Bld) [#/Vol] 190 10 3/uL 150-450 [facility] RBC Auto (Bld) [#/Vol]on RBC (Bld) [#/Vol] 3.91 10 6/uL 4.70-6.10 [facility] Serum or plasma albumin/glob ulin mass ratioon 08-06-2023 Albumin/Globulin [Mass ratio] 0.5 {ratio} [facility] Serum or plasma anion gap de terminationon 08-06-2023 Anion gap [Moles/Vol] 13.4 mmol/L [facility] Automated epithelial cells c ount in urine sediment (number/area)on 08-05-2023 Epithelial cells Auto (Urine sed) [#/Area] RARE #/LPF NONE/RARE [facility] Automated leukocytes count i n urine sediment (number/area)on 08-05-2023 WBC Auto (Urine sed) [#/Area] NONE SEEN #/HPF 0-2 [facility] Automated urine specific gra vity by refractometryon 08-05-2023 Specific gravity Refractometry automated (U) [Rel density] <=1.005 1.005-1.02 5 [facility] Basophils Auto (Bld) [#/Vol] on 08-05-2023 Basophils (Bld) [#/Vol] 0.1 10 3/uL 0.0-0.1 [facility] Basophils/100 WBC Auto (Bld) on 08-05-2023 Basophils/100 WBC (Bld) 0.7 % 0.2-2.0 [facility] Bilirubin Auto test strip (U ) [Mass/Vol]on 08-05-2023 Bilirubin (U) [Mass/Vol] Negative NEGATIVE [facility] Casts typing in urine sedime nt by light microscopyon 08-05-2023 Casts LM Nom (Urine sed) NONE SEEN #/LPF NONE SEEN [facility] Color Auto (U)on 08-05-2023 Color (U) LT. YELLOW YELLOW [facility] Eosinophils/100 WBC Auto (Bl d)on 08-05-2023 Eosinophils/100 WBC (Bld) 2.5 % 0.9-7.0 [facility] Erythrocyte distribution wid th Auto (RBC) [Ratio]on 08-05-2023 Erythrocyte distribution width (RBC) [Ratio] 16.8 % 11.0-15.0 [facility] Estimated glomerular filtrat ion rate (GFR) non- Americanon 08-05-2023 GFR/1.73 sq M.predicted among non-blacks MDRD (S/P/Bld) [Vol rate/Area] 42 mL/min/{1.73_m2} >=60 [facility] Globulin Calc (S) [Mass/Vol] on 08-05-2023 Globulin (S) [Mass/Vol] 4.1 g/dL [facility] Glucose mean value [Mass/vol ume] in Blood Estimated from glycated hemoglobinon 08-05-2023 Average glucose Estimated from glycated hemoglobin (Bld) [Mass/Vol] 214 mg/dL [facility] Hematocrit Auto (Bld) [Volum e fraction]on 08-05-2023 Hematocrit (Bld) [Volume fraction] 31.8 % 42.0-54.0 [facility] Hemoglobin [Mass/volume] in Bloodon 08-05-2023 Hemoglobin (Bld) [Mass/Vol] 9.4 g/dL 14.0-18.0 [facility] Ketones Auto test strip (U) [Mass/Vol]on 08-05-2023 Ketones (U) [Mass/Vol] Negative NEGATIVE Fi [facility] Laboratory - Chemistry and C hemistry - challengeon 08-05-2023 Albumin [Mass/Vol] 2.3 g/dL 3.4-5.0 [facility] ALP [Catalytic activity/Vol] 111 U/L 46-116 [facility] ALT [Catalytic activity/Vol] 11 U/L 16-63 [facility] AST [Catalytic activity/Vol] 11 U/L 15-37 [facility] Bilirubin [Mass/Vol] 0.5 mg/dL 0.2-1.0 [facility] Calcium [Mass/Vol] 8.1 mg/dL 8.5-10.1 [facility] Chloride [Moles/Vol] 101 mmol/L 98-107 [facility] CO2 [Moles/Vol] 25.6 mmol/L 21.0-32.0 [facility] Creatinine [Mass/Vol] 1.68 mg/dL 0.70-1.30 [facility] GFR/1.73 sq M.predicted MDRD (S/P/Bld) [Vol rate/Area] 51 mL/min/{1.73_m2} >=60 [facility] Glucose [Mass/Vol] 111 mg/dL 74-106 [facility] Potassium [Moles/Vol] 3.7 mmol/L 3.5-5.1 [facility] Protein [Mass/Vol] 6.4 g/dL 6.4-8.2 [facility] Sodium [Moles/Vol] 138 mmol/L 136-145 [facility] Urea nitrogen [Mass/Vol] 17.0 mg/dL 7.0-18.0 [facility] Urea nitrogen/Creatinine [Mass ratio] 10.1 mg/mg [facility] Laboratory - Hematology and Cell countson 08-05-2023 HbA1c (Bld) [Mass fraction] 9.1 % 4.5-6.2 [facility] Comment on above: ADA RECOMMENDED LIMI T 4.0 - 6.0ADA THERAPEUTIC TARGET < 7.0ACTION SUGGESTED> 7.0 Immature granulocytes/100 WBC (Bld) 0.4 % 0.0-0.5 [facility] Laboratory - Microbiology an d Antimicrobial susceptibilityOrdered By: Jenaro Lynch on 08-05-2023 Microscopic observation Gram stain Nom (Unsp spec) [facility] Leukocytes [#/volume] correc jorge for nucleated erythrocytes in Blood by Automated counon 08-05-2023 WBC corrected for nucl RBC Auto (Bld) [#/Vol] 12.3 10 3/uL 4.0-11.0 [facility] Lymphocytes Auto (Bld) [#/Vo l]on 08-05-2023 Lymphocytes (Bld) [#/Vol] 1.5 10 3/uL 1.2-3.8 [facility] Lymphocytes/100 WBC Auto (Bl d)on 08-05-2023 Lymphocytes/100 WBC (Bld) 11.8 % 20.5-60.0 [facility] MCH Auto (RBC) [Entitic mass ]on 08-05-2023 MCH (RBC) [Entitic mass] 22.4 pg 25.9-34.0 [facility] MCHC Auto (RBC) [Mass/Vol]on 08-05-2023 MCHC (RBC) [Mass/Vol] 29.6 g/dL 29.9-35.2 [facility] MCV Auto (RBC) [Entitic vol] on 08-05-2023 MCV (RBC) [Entitic vol] 75.9 fL 80.0-94.0 [facility] Monocytes Auto (Bld) [#/Vol] on 08-05-2023 Monocytes (Bld) [#/Vol] 1.3 10 3/uL 0.3-0.8 [facility] Monocytes/100 WBC Auto (Bld) on 08-05-2023 Monocytes/100 WBC (Bld) 10.7 % 1.7-12.0 [facility] Mucus LM Ql (Urine sed)on Mucus Ql (Urine sed) NONE SEEN NONE SEEN [facility] Neutrophils Auto (Bld) [#/Vo l]on 08-05-2023 Neutrophils (Bld) [#/Vol] 9.1 10 3/uL 1.4-6.5 [facility] Neutrophils/100 WBC Auto (Bl d)on 08-05-2023 Neutrophils/100 WBC (Bld) 73.9 % 43.0-75.0 [facility] No Panel Informationon 08-04 Eosinophils # (Auto) 0.3 10 3/uL 0.0-0.7 [facility] Immature Granulocyte # (Auto) 0.05 10 3/uL 0.00-0.03 [facility] Platelet mean volume Auto (B ld) [Entitic vol]on 08-05-2023 Platelet mean volume (Bld) [Entitic vol] 11.2 fL 9.5-13.5 [facility] Platelets Auto (Bld) [#/Vol] on 08-05-2023 Platelets (Bld) [#/Vol] 184 10 3/uL 150-450 [facility] Protein Auto test strip (U) [Mass/Vol]on 08-05-2023 Protein (U) [Mass/Vol] Negative NEG/[facility] Auto (Bld) [#/Vol]on RBC (Bld) [#/Vol] 4.19 10 6/uL 4.70-6.10 [facility] Serum or plasma albumin/glob ulin mass ratioon 08-05-2023 Albumin/Globulin [Mass ratio] 0.6 {ratio} [facility] Serum or plasma anion gap de terminationon 08-05-2023 Anion gap [Moles/Vol] 15.1 mmol/L [facility] Specific gravity Auto test s trip (U) [Rel density]on 08-05-2023 Specific gravity (U) [Rel density] CLEAR CLEAR [facility] Urine bacteria detection by automated methodon 08-05-2023 Bacteria Auto Ql (U) TRACE #/HPF NONE SEEN Fir [facility] Urine glucose measurement by test strip (mass/volume)on 08-05-2023 Glucose Test strip (U) [Mass/Vol] >=1000 mg/dL NEGATIVE [facility] Urine hemoglobin detection b y automated test stripon 08-05-2023 Hemoglobin Auto test strip Ql (U) Negative NEGATIVE [facility] Urine nitrite detection by a utomated test stripon 08-05-2023 Nitrite Auto test strip Ql (U) Negative NEGATIVE [facility] Urine sediment crystal ident ification by light microscopyon 08-05-2023 Crystals LM Nom (Urine sed) None Seen #/HPF None Seen [facility] Urine sediment leukocyte cou nt by microscopy (number/high power field)on 08-05-2023 WBC LM.HPF (Urine sed) [#/Area] NONE SEEN #/HPF NONE SEEN [facility] Urobilinogen Auto test strip (U) [Mass/Vol]on 08-05-2023 Urobilinogen Qn (U) 0.2 {Brendan'U}/dL 0.2-1.0 [facility] pH Auto test strip (U)on pH (U) 6.0 [pH] 5.0-9.0 [facility] Basophils Auto (Bld) [#/Vol] on 08-04-2023 Basophils (Bld) [#/Vol] 0.1 10 3/uL 0.0-0.1 [facility] Basophils/100 WBC Auto (Bld) on 08-04-2023 Basophils/100 WBC (Bld) 0.8 % 0.2-2.0 [facility] Eosinophils/100 WBC Auto (Bl d)on 08-04-2023 Eosinophils/100 WBC (Bld) 2.8 % 0.9-7.0 [facility] Erythrocyte distribution wid th Auto (RBC) [Ratio]on 08-04-2023 Erythrocyte distribution width (RBC) [Ratio] 16.9 % 11.0-15.0 [facility] Estimated glomerular filtrat ion rate (GFR) non- Americanon 08-04-2023 GFR/1.73 sq M.predicted among non-blacks MDRD (S/P/Bld) [Vol rate/Area] 33 mL/min/{1.73_m2} >=60 [facility] Globulin Calc (S) [Mass/Vol] on 08-04-2023 Globulin (S) [Mass/Vol] 4.4 g/dL [facility] Hematocrit Auto (Bld) [Volum e fraction]on 08-04-2023 Hematocrit (Bld) [Volume fraction] 32.6 % 42.0-54.0 [facility] Hemoglobin [Mass/volume] in Bloodon 08-04-2023 Hemoglobin (Bld) [Mass/Vol] 9.6 g/dL 14.0-18.0 [facility] INR in Platelet poor plasma by Coagulation assayon 08-04-2023 INR Coag (PPP) [Relative time] 1.05 {INR} [facility] Comment on above: DESIRED INR:2.0-3.0 CONDITIONS NOT LISTED BELOW2.5-3.5 FOR PROSTHETIC HEART VALVE REPLACEMENT2.5-3.5 RECURRENT THROMBOSIS Laboratory - Chemistry and C hemistry - challengeon 08-04-2023 Albumin [Mass/Vol] 2.4 g/dL 3.4-5.0 [facility] ALP [Catalytic activity/Vol] 109 U/L 46-116 [facility] ALT [Catalytic activity/Vol] 9 U/L 16-63 [facility] AST [Catalytic activity/Vol] U/L 15-37 [facility] Bilirubin [Mass/Vol] 0.4 mg/dL 0.2-1.0 [facility] Calcium [Mass/Vol] 8.0 mg/dL 8.5-10.1 [facility] Chloride [Moles/Vol] 96 mmol/L 98-107 [facility] CO2 [Moles/Vol] 29.2 mmol/L 21.0-32.0 [facility] Creatinine [Mass/Vol] 2.06 mg/dL 0.70-1.30 [facility] GFR/1.73 sq M.predicted MDRD (S/P/Bld) [Vol rate/Area] 40 mL/min/{1.73_m2} >=60 [facility] Glucose [Mass/Vol] 329 mg/dL 74-106 [facility] Potassium [Moles/Vol] 3.5 mmol/L 3.5-5.1 [facility] Protein [Mass/Vol] 6.8 g/dL 6.4-8.2 [facility] Sodium [Moles/Vol] 132 mmol/L 136-145 [facility] Urea nitrogen [Mass/Vol] 20.0 mg/dL 7.0-18.0 [facility] Urea nitrogen/Creatinine [Mass ratio] 9.7 mg/mg [facility] Laboratory - Hematology and Cell countson 08-04-2023 ESR (Bld) [Velocity] 89 mm/h <=20 [facility] Immature granulocytes/100 WBC (Bld) 0.3 % 0.0-0.5 [facility] Laboratory - Microbiology an d Antimicrobial susceptibilityOrdered By: Jenaro Lynch on 08-04-2023 Microscopic observation Gram stain Nom (Unsp spec) [facility] Leukocytes [#/volume] correc jorge for nucleated erythrocytes in Blood by Automated counon 08-04-2023 WBC corrected for nucl RBC Auto (Bld) [#/Vol] 11.6 10 3/uL 4.0-11.0 [facility] Lymphocytes Auto (Bld) [#/Vo l]on 08-04-2023 Lymphocytes (Bld) [#/Vol] 1.7 10 3/uL 1.2-3.8 [facility] Lymphocytes/100 WBC Auto (Bl d)on 08-04-2023 Lymphocytes/100 WBC (Bld) 14.9 % 20.5-60.0 [facility] MCH Auto (RBC) [Entitic mass ]on 08-04-2023 MCH (RBC) [Entitic mass] 22.3 pg 25.9-34.0 [facility] MCHC Auto (RBC) [Mass/Vol]on 08-04-2023 MCHC (RBC) [Mass/Vol] 29.4 g/dL 29.9-35.2 [facility] MCV Auto (RBC) [Entitic vol] on 08-04-2023 MCV (RBC) [Entitic vol] 75.8 fL 80.0-94.0 [facility] Monocytes Auto (Bld) [#/Vol] on 08-04-2023 Monocytes (Bld) [#/Vol] 1.2 10 3/uL 0.3-0.8 [facility] Monocytes/100 WBC Auto (Bld) on 08-04-2023 Monocytes/100 WBC (Bld) 10.4 % 1.7-12.0 [facility] Neutrophils Auto (Bld) [#/Vo l]on 08-04-2023 Neutrophils (Bld) [#/Vol] 8.2 10 3/uL 1.4-6.5 [facility] Neutrophils/100 WBC Auto (Bl d)on 08-04-2023 Neutrophils/100 WBC (Bld) 70.8 % 43.0-75.0 [facility] No Panel InformationOrdered By: Jenaro Lynch on 08-04-2023 Blood Culture 2 [facility] Blood Culture 1 [facility] Wound Culture [facility] No Panel Informationon 08-03 Aerobic & Anaerobic Susceptibility [facility] Miscellaneous Test Comment See comment [facility] Comment on above: Specimen Source: JONO T - Foot - Foot - 603.950 C-Reactive Protein, Quantitative 11.62 mg/dL <=0.50 [facility] Eosinophils # (Auto) 0.3 10 3/uL 0.0-0.7 [facility] Immature Granulocyte # (Auto) 0.04 10 3/uL 0.00-0.03 [facility] Platelet mean volume Auto (B ld) [Entitic vol]on 08-04-2023 Platelet mean volume (Bld) [Entitic vol] 11.5 fL 9.5-13.5 [facility] Platelets Auto (Bld) [#/Vol] on 08-04-2023 Platelets (Bld) [#/Vol] 206 10 3/uL 150-450 [facility] Prothrombin time (PT)on PT Coag (PPP) [Time] 11.1 s 9.0-11.6 [facility] RBC Auto (Bld) [#/Vol]on RBC (Bld) [#/Vol] 4.30 10 6/uL 4.70-6.10 [facility] Serum or plasma albumin/glob ulin mass ratioon 08-04-2023 Albumin/Globulin [Mass ratio] 0.5 {ratio} [facility] Serum or plasma anion gap de terminationon 08-04-2023 Anion gap [Moles/Vol] 10.3 mmol[facility] Serum procalcitonin measurem enton 08-04-2023 Procalcitonin [Mass/Vol] 0.10 ng/mL 0.00-0.50 [facility] Basophils Auto (Bld) [#/Vol] on 08-03-2023 Basophils (Bld) [#/Vol] 0.1 10 3/uL 0.0-0.1 [facility] Basophils/100 WBC Auto (Bld) on 08-03-2023 Basophils/100 WBC (Bld) 0.7 % 0.2-2.0 [facility] Eosinophils/100 WBC Auto (Bl d)on 08-03-2023 Eosinophils/100 WBC (Bld) 1.8 % 0.9-7.0 [facility] Erythrocyte distribution wid th Auto (RBC) [Ratio]on 08-03-2023 Erythrocyte distribution width (RBC) [Ratio] 17.0 % 11.0-15.0 [facility] Estimated glomerular filtrat ion rate (GFR) non- Americanon 08-03-2023 GFR/1.73 sq M.predicted among non-blacks MDRD (S/P/Bld) [Vol rate/Area] 27 mL/min/{1.73_m2} >=60 [facility] Globulin Calc (S) [Mass/Vol] on 08-03-2023 Globulin (S) [Mass/Vol] 5.0 g/dL [facility] Hematocrit Auto (Bld) [Volum e fraction]on 08-03-2023 Hematocrit (Bld) [Volume fraction] 38.9 % 42.0-54.0 [facility] Hemoglobin [Mass/volume] in Bloodon 08-03-2023 Hemoglobin (Bld) [Mass/Vol] 11.8 g/dL 14.0-18.0 [facility] Laboratory - Chemistry and C hemistry - challengeon 08-03-2023 Lactate [Moles/Vol] 1.6 mmol/L 0.4-2.0 [facility] Albumin [Mass/Vol] 3.3 g/dL 3.4-5.0 [facility] ALP [Catalytic activity/Vol] 134 U/L 46-116 [facility] ALT [Catalytic activity/Vol] 13 U/L 16-63 [facility] AST [Catalytic activity/Vol] U/L 15-37 [facility] Bilirubin [Mass/Vol] 0.6 mg/dL 0.2-1.0 [facility] Calcium [Mass/Vol] 9.3 mg/dL 8.5-10.1 [facility] Chloride [Moles/Vol] 92 mmol/L 98-107 [facility] CO2 [Moles/Vol] 31.0 mmol/L 21.0-32.0 [facility] Creatinine [Mass/Vol] 2.45 mg/dL 0.70-1.30 [facility] GFR/1.73 sq M.predicted MDRD (S/P/Bld) [Vol rate/Area] 33 mL/min/{1.73_m2} >=60 [facility] Glucose [Mass/Vol] 310 mg/dL 74-106 [facility] Potassium [Moles/Vol] 3.7 mmol/L 3.5-5.1 [facility] Protein [Mass/Vol] 8.3 g/dL 6.4-8.2 [facility] Sodium [Moles/Vol] 133 mmol/L 136-145 [facility] Urea nitrogen [Mass/Vol] 23.0 mg/dL 7.0-18.0 [facility] Urea nitrogen/Creatinine [Mass ratio] 9.4 mg/mg [facility] Laboratory - Hematology and Cell countson 08-03-2023 ESR (Bld) [Velocity] 118 mm/h <=20 [facility] Immature granulocytes/100 WBC (Bld) 0.4 % 0.0-0.5 [facility] Leukocytes [#/volume] correc jorge for nucleated erythrocytes in Blood by Automated counon 08-03-2023 WBC corrected for nucl RBC Auto (Bld) [#/Vol] 14.6 10 3/uL 4.0-11.0 [facility] Lymphocytes Auto (Bld) [#/Vo l]on 08-03-2023 Lymphocytes (Bld) [#/Vol] 2.1 10 3/uL 1.2-3.8 [facility] Lymphocytes/100 WBC Auto (Bl d)on 08-03-2023 Lymphocytes/100 WBC (Bld) 14.3 % 20.5-60.0 [facility] MCH Auto (RBC) [Entitic mass ]on 08-03-2023 MCH (RBC) [Entitic mass] 22.6 pg 25.9-34.0 [facility] MCHC Auto (RBC) [Mass/Vol]on 08-03-2023 MCHC (RBC) [Mass/Vol] 30.3 g/dL 29.9-35.2 [facility] MCV Auto (RBC) [Entitic vol] on 08-03-2023 MCV (RBC) [Entitic vol] 74.4 fL 80.0-94.0 [facility] Monocytes Auto (Bld) [#/Vol] on 08-03-2023 Monocytes (Bld) [#/Vol] 1.4 10 3/uL 0.3-0.8 [facility] Monocytes/100 WBC Auto (Bld) on 08-03-2023 Monocytes/100 WBC (Bld) 9.4 % 1.7-12.0 [facility] Neutrophils Auto (Bld) [#/Vo l]on 08-03-2023 Neutrophils (Bld) [#/Vol] 10.7 10 3/uL 1.4-6.5 [facility] Neutrophils/100 WBC Auto (Bl d)on 08-03-2023 Neutrophils/100 WBC (Bld) 73.4 % 43.0-75.0 [facility] No Panel Informationon C-Reactive Protein, Quantitative 14.63 mg/dL <=0.50 [facility] Eosinophils # (Auto) 0.3 10 3/uL 0.0-0.7 [facility] Immature Granulocyte # (Auto) 0.06 10 3/uL 0.00-0.03 [facility] Venous Blood Partial Pressure CO2 44.8 mm[Hg] 40.0-52.0 [facility] Venous Blood pH 7.432 7.330-7.43 0 [facility] No Panel InformationOrdered By: Jenaro Lynch on 08-03-2023 Blood Culture 2 [facility] Blood Culture 1 [facility] Platelet mean volume Auto (B ld) [Entitic vol]on 08-03-2023 Platelet mean volume (Bld) [Entitic vol] 11.4 fL 9.5-13.5 [facility] Platelets Auto (Bld) [#/Vol] on 08-03-2023 Platelets (Bld) [#/Vol] 252 10 3/uL 150-450 [facility] RBC Auto (Bld) [#/Vol]on RBC (Bld) [#/Vol] 5.23 10 6/uL 4.70-6.10 [facility] Serum or plasma albumin/glob ulin mass ratioon 08-03-2023 Albumin/Globulin [Mass ratio] 0.7 {ratio} [facility] Serum or plasma anion gap de terminationon 08-03-2023 Anion gap [Moles/Vol] 13.7 mmol/L Fi [facility] US venous duplex LE BIon [place] [address] Ultrasound Report Signed Patient: Solomon Feldman MR#: [id number] : 1965 Acct:[id number] Age/Sex: 57 / M ADM Date: 07/12/23 Loc: ER Room: Type: [facility] ER Attending Dr: Ordering Provider: [...] Howard Boss MD07/13/2023 11:56 AM Dictation Location: [place] [address] Tech: Nancy Pantoja Transcribed By: BOB 07/13/23 1156 Dictated By: Howard Boss MD 07/13/23 1156 Signed By: 07/13/23 1156 Normal [facility] US venous duplex UE LTon US venous duplex UE LT [facility] [address] Ultrasound Report Signed Patient: Solomon Feldman SR MR#: [id number] : 1965 Acct:[id number] Age/Sex: 57 / M ADM Date: 07/12/23 Loc: ER Room: Type: [facility] ER Attending Dr: Ordering Provider: [...] Howard Boss MD07/13/2023 11:56 AM Dictation Location: [place] [address] Tech: Nancy Pantoja Transcribed By: BOB 07/13/23 1156 Dictated By: Howard Boss MD 07/13/23 1155 Signed By: 07/13/23 1156 Normal [facility] Activated partial thrombopla stin time (aPTT) in platelet poor plasma by coagulation aOrdered By: Nancy Wilson on 07-12-2023 aPTT Coag (PPP) [Time] 29.4 s 25.1-36.5 [facility] Comment on above: A hematocrit value g reater than 55% may lead to inaccurate results in coagulation testing. Patients having hematocrit values >55% require a special collection tube for coagulation studies. Please contact the laboratory at [phone] for redraw instructions. Alanine aminotransferase [En zymatic activity/volume] in Serum or PlasmaOrdered By: Nancy Wilson on 07-12-2023 ALT [Catalytic activity/Vol] 9 U/L 7-52 [facility] Albumin [Mass/volume] in Ser um or Plasma by Bromocresol green (BCG) dye binding methoOrdered By: Nancy Wilson on 07-12-2023 Albumin BCG dye [Mass/Vol] 3.9 g/dL 3.5-5.7 [facility] Alkaline phosphatase [Enzyma tic activity/volume] in Serum or PlasmaOrdered By: Nancy Wilson on 07-12-2023 ALP [Catalytic activity/Vol] 106 U/L 34-104 [facility] Aspartate aminotransferase [ Enzymatic activity/volume] in Serum or PlasmaOrdered By: Nancy Wilson on 07-12-2023 AST [Catalytic activity/Vol] 8 U/L 13-39 [facility] B-Type Natriuretic Peptideon 07-12-2023 Natriuretic peptide B (Bld) [Mass/Vol] 34.0 pg/mL Normal 5-100 [facility] Comment on above: Result Comment: PERF ORMED BY: [place] [address] PATHOLOGIST FINANCIAL SERVICE REPRESENTATIVE CLIFFORD LOBATO M.D. Performed By: #### P TT, CBC, PT, BNP, CMP, HS TROP, CK #### [address] Basophils Auto (Bld) [#/Vol] Ordered By: Nancy Wilson on 07-12-2023 Basophils (Bld) [#/Vol] 0.1 10*3/uL 0.0-0.2 [facility] Basophils/100 WBC Auto (Bld) Ordered By: Nancy Wilson on 07-12-2023 Basophils/100 WBC (Bld) 1.1 % . [facility] Bilirubin.total [Mass/volume ] in Serum or PlasmaOrdered By: Nancy Wilson on 07-12-2023 Bilirubin [Mass/Vol] 0.4 mg/dL 0.3-1.0 [facility] Calcium [Mass/volume] in Ser um or PlasmaOrdered By: Nancy Wilson on 07-12-2023 Calcium [Mass/Vol] 8.5 mg/dL 8.6-10.3 [facility] Carbon dioxide, total [Moles /volume] in Serum or PlasmaOrdered By: Nancy Wilson on 07-12-2023 CO2 [Moles/Vol] 24.5 mmol/L 21.0-31.0 [facility] Chloride [Moles/volume] in S ilia or PlasmaOrdered By: Nancy Wilson on 07-12-2023 Chloride [Moles/Vol] 102 mmol/L 98-107 [facility] Complete Blood Count Auto Di ffon 07-12-2023 Basophils (Bld) [#/Vol] 0.1 10*3/uL Normal 0.0-0.2 [facility] Comment on above: Result Comment: PERF ORMED BY: [place] [address] PATHOLOGIST FINANCIAL SERVICE REPRESENTATIVE CLIFFORD LOBATO M.D. Performed By: #### P TT, CBC, PT, BNP, CMP, HS TROP, CK #### [facility] [address] Basophils/100 WBC (Bld) 1.1 % Normal . [facility] Comment on above: Performed By: #### P TT, CBC, PT, BNP, CMP, HS TROP, CK #### [facility] [address] Eosinophils (Bld) [#/Vol] 0.3 10*3/uL Normal 0.0-0.45 [facility] Comment on above: Performed By: #### P TT, CBC, PT, BNP, CMP, HS TROP, CK #### [address] Eosinophils/100 WBC (Bld) 3.3 % Normal . [facility] Comment on above: Performed By: #### P TT, CBC, PT, BNP, CMP, HS TROP, CK #### [address] Erythrocyte distribution width (RBC) [Ratio] 17.1 % High 12.0-14.8 [facility] Comment on above: Performed By: #### P TT, CBC, PT, BNP, CMP, HS TROP, CK #### [address] Hematocrit (Bld) [Volume fraction] 32.7 % Low 38.8-50.0 [facility] Comment on above: Performed By: #### P TT, CBC, PT, BNP, CMP, HS TROP, CK #### [address] Hemoglobin (Bld) [Mass/Vol] 10.6 g/dL Low 13.0-17.0 [facility] Comment on above: Performed By: #### P TT, CBC, PT, BNP, CMP, HS TROP, CK #### [address] Lymphocytes (Bld) [#/Vol] 1.9 10*3/uL Normal 1.00-4.8 [facility] Comment on above: Performed By: #### P TT, CBC, PT, BNP, CMP, HS TROP, CK #### [address] Lymphocytes/100 WBC (Bld) 20.0 % Normal . [facility] Comment on above: Performed By: #### P TT, CBC, PT, BNP, CMP, HS TROP, CK #### [address] MCH (RBC) [Entitic mass] 22.8 pg Low 27.5-35.2 [facility] Comment on above: Performed By: #### P TT, CBC, PT, BNP, CMP, HS TROP, CK #### [address] MCV (RBC) [Entitic vol] 70.6 fL Low 83.5-101 [facility] Comment on above: Performed By: #### P TT, CBC, PT, BNP, CMP, HS TROP, CK #### [address] Mean Corpuscular HGB Conc 32.4 g/dL Low 32.5-35.6 [facility] Comment on above: Performed By: #### P TT, CBC, PT, BNP, CMP, HS TROP, CK #### [address] Monocytes (Bld) [#/Vol] 1.0 10*3/uL High 0.0-0.8 [facility] Comment on above: Performed By: #### P TT, CBC, PT, BNP, CMP, HS TROP, CK #### [address] Monocytes/100 WBC (Bld) 18.12 % Normal 0.00-20.00 [facility] Comment on above: Performed By: #### P TT, CBC, PT, BNP, CMP, HS TROP, CK #### [place] [address] [place] Monocytes/100 WBC (Bld) 10.2 % Normal . [facility] Comment on above: Performed By: #### P TT, CBC, PT, BNP, CMP, HS TROP, CK #### [place] [address] [place] Neutrophils (Bld) [#/Vol] 6.2 10*3/uL Normal 1.8-7.7 [facility] Comment on above: Performed By: #### P TT, CBC, PT, BNP, CMP, HS TROP, CK #### [place] [address] [place] Neutrophils/100 WBC (Bld) 65.4 % Normal . [facility] Comment on above: Performed By: #### P TT, CBC, PT, BNP, CMP, HS TROP, CK #### [address] NRBC% 0.1 /100{WBC} Normal 0-0.5 [facility] Comment on above: Performed By: #### P TT, CBC, PT, BNP, CMP, HS TROP, CK #### [address] Platelet mean volume (Bld) [Entitic vol] 9.1 fL Normal 6.6-10.1 [facility] Comment on above: Performed By: #### P TT, CBC, PT, BNP, CMP, HS TROP, CK #### [address] Platelets (Bld) [#/Vol] 233 10*3/uL Normal 150-450 [facility] Comment on above: Performed By: #### P TT, CBC, PT, BNP, CMP, HS TROP, CK #### [address] RBC (Bld) [#/Vol] 4.63 10*6/uL Normal 3.90-5.60 [facility] Comment on above: Performed By: #### P TT, CBC, PT, BNP, CMP, HS TROP, CK #### [address] WBC (Bld) [#/Vol] 9.5 10*3/uL Normal 4.1-10.5 [facility] Comment on above: Performed By: #### P TT, CBC, PT, BNP, CMP, HS TROP, CK #### [address] Comprehensive Metabolic Pane guy 07-12-2023 Albumin [Mass/Vol] 3.9 g/dL Normal 3.5-5.7 [facility] Comment on above: Performed By: #### P TT, CBC, PT, BNP, CMP, HS TROP, CK #### [address] Albumin/Globulin [Mass ratio] 1.3 {ratio} Normal [facility] Comment on above: Performed By: #### P TT, CBC, PT, BNP, CMP, HS TROP, CK #### [address] ALP [Catalytic activity/Vol] 106 U/L High 34-104 [facility] Comment on above: Performed By: #### P TT, CBC, PT, BNP, CMP, HS TROP, CK #### [address] ALT [Catalytic activity/Vol] 9 U/L Normal 7-52 [facility] Comment on above: Performed By: #### P TT, CBC, PT, BNP, CMP, HS TROP, CK #### [address] Anion gap [Moles/Vol] 13.4 mmol/L Normal 6.0-15.[address] [facility] Comment on above: Performed By: #### P TT, CBC, PT, BNP, CMP, HS TROP, CK #### [address] AST [Catalytic activity/Vol] 8 U/L Low 13-39 [facility] Comment on above: Performed By: #### P TT, CBC, PT, BNP, CMP, HS TROP, CK #### [address] Bilirubin [Mass/Vol] 0.4 mg/dL Normal 0.3-1.0 [facility] Comment on above: Performed By: #### P TT, CBC, PT, BNP, CMP, HS TROP, CK #### [address] Calcium [Mass/Vol] 8.5 mg/dL Low 8.6-10.3 [facility] Comment on above: Performed By: #### P TT, CBC, PT, BNP, CMP, HS TROP, CK #### [address] Chloride [Moles/Vol] 102 mmol/L Normal 98-107 [facility] Comment on above: Performed By: #### P TT, CBC, PT, BNP, CMP, HS TROP, CK #### [address] CO2 [Moles/Vol] 24.5 mmol/L Normal 21.0-31.0 [facility] Comment on above: Performed By: #### P TT, CBC, PT, BNP, CMP, HS TROP, CK #### [address] Creatinine [Mass/Vol] 1.82 mg/dL High 0.70-1.30 [facility] Comment on above: Performed By: #### P TT, CBC, PT, BNP, CMP, HS TROP, CK #### [address] Creatinine Clr Calc Pharmacy 54.64 Normal [facility] Comment on above: Result Comment: PERF ORMED BY: [place] [address] PATHOLOGIST FINANCIAL SERVICE REPRESENTATIVE CLIFFORD LOBATO M.D. Performed By: #### P TT, CBC, PT, BNP, CMP, HS TROP, CK #### [address] GFR/1.73 sq M.predicted MDRD (S/P/Bld) [Vol rate/Area] 42.789 mL/min/{1.73_m2} Normal [facility] Comment on above: Performed By: #### P TT, CBC, PT, BNP, CMP, HS TROP, CK #### [address] Globulin (S) [Mass/Vol] 3.1 g/dL Normal [facility] Comment on above: Performed By: #### P TT, CBC, PT, BNP, CMP, HS TROP, CK #### [address] Glucose [Mass/Vol] 302 mg/dL High 70-100 [facility] Comment on above: Result Comment: [employer] Glucose Reference Range is dependent on time and content of last meal. Glucose of more than 200 mg/dL in a nonstressed, ambulatory subject supports the diagnosis of Diabetes Mellitus. ADA recommended reference range Performed By: #### P TT, CBC, PT, BNP, CMP, HS TROP, CK #### [address] Potassium [Moles/Vol] 3.9 mmol/L Normal 3.5-5.1 [facility] Comment on above: Performed By: #### P TT, CBC, PT, BNP, CMP, HS TROP, CK #### [address] Protein [Mass/Vol] 7.0 g/dL Normal 6.4-8.9 [facility] Comment on above: Performed By: #### P TT, CBC, PT, BNP, CMP, HS TROP, CK #### [address] Sodium [Moles/Vol] 136 mmol/L Normal 136-145 [facility] Comment on above: Performed By: #### P TT, CBC, PT, BNP, CMP, HS TROP, CK #### [address] Urea nitrogen [Mass/Vol] 16 mg/dL Normal 7-25 [facility] Comment on above: Performed By: #### P TT, CBC, PT, BNP, CMP, HS TROP, CK #### [address] Creatine Kinaseon 07-12-2023 CK [Catalytic activity/Vol] 55 U/L Normal 30-223 [facility] Comment on above: Performed By: #### P TT, CBC, PT, BNP, CMP, HS TROP, CK #### [address] Creatine kinase [Enzymatic a ctivity/volume] in Serum or PlasmaOrdered By: Nancy Wilson on 07-12-2023 CK [Catalytic activity/Vol] 55 U/L 30-223 [facility] Creatinine [Mass/volume] in Serum or PlasmaOrdered By: Nancy Wilson on 07-12-2023 Creatinine [Mass/Vol] 1.82 mg/dL 0.70-1.30 [facility] ECG 12 lead ECGon 07-12-2023 ECG 12 lead ECG [facility] [address] [place] [id number] Electrocardiograph Report Signed Patient: Solomon Feldman SR MR#: [id number] : 1965 Acct:[id number] Age/Sex: 57 / M ADM Date: 07/12/23 Loc: ER Room: Type: [facility] ER Attending Dr: Ordering Provider: [...] Nancy Wilson MD 01/26 0135 Normal [facility] Eosinophils Auto (Bld) [#/Vo l]Ordered By: Nancy Wilson on 07-12-2023 Eosinophils (Bld) [#/Vol] 0.3 10*3/uL 0.0-0.45 [facility] Eosinophils/100 WBC Auto (Bl d)Ordered By: Nancy Wilson on 07-12-2023 Eosinophils/100 WBC (Bld) 3.3 % . [facility] [facility] Erythrocyte distribution wid th Auto (RBC) [Ratio]Ordered By: Nancy Wilson on 07-12-2023 Erythrocyte distribution width (RBC) [Ratio] 17.1 % 12.0-14.8 [facility] Globulin Calc (S) [Mass/Vol] Ordered By: Nancy Wilson on 07-12-2023 Globulin (S) [Mass/Vol] 3.1 g/dL [facility] Glucose [Mass/volume] in Ser um or PlasmaOrdered By: Nancy Wilson on 07-12-2023 Glucose [Mass/Vol] 302 mg/dL 70-100 [facility] Comment on above: ADA recommended refe rence rangeRandom Glucose Reference Range is dependent on time and content of last meal. Glucose of more than 200 mg/dL in a nonstressed, ambulatory subject supports the diagnosis of Diabetes Mellitus. Hematocrit Auto (Bld) [Volum e fraction]Ordered By: Nancy Wilson on 07-12-2023 Hematocrit (Bld) [Volume fraction] 32.7 % 38.8-50.0 [facility] Hemoglobin [Mass/volume] in BloodOrdered By: Nancy Wilson on 07-12-2023 Hemoglobin (Bld) [Mass/Vol] 10.6 g/dL 13.0-17.0 [facility] INR in Platelet poor plasma by Coagulation assayOrdered By: Nancy Wilson on 07-12-2023 INR Coag (PPP) [Relative time] 1.1 {INR} [facility] Comment on above: INR Therapeutic Rang [...] Auto (Bld) [#/Vol] 9.5 10*3/uL 4.1-10.5 [facility] Lymphocytes Auto (Bld) [#/Vo l]Ordered By: Nancy Wilson on 07-12-2023 Lymphocytes (Bld) [#/Vol] 1.9 10*3/uL 1.00-4.8 [facility] Lymphocytes/100 WBC Auto (Bl d)Ordered By: Nancy Wilson on 07-12-2023 Lymphocytes/100 WBC (Bld) 20.0 % . [facility] MCH Auto (RBC) [Entitic mass ]Ordered By: Nancy Wilson on 07-12-2023 MCH (RBC) [Entitic mass] 22.8 pg 27.5-35.2 [facility] MCHC Auto (RBC) [Mass/Vol]Or dered By: Nancy Wilson on 07-12-2023 MCHC (RBC) [Mass/Vol] 32.4 g/dL 32.5-35.6 [facility] MCV Auto (RBC) [Entitic vol] Ordered By: Nancy Wilson on 07-12-2023 MCV (RBC) [Entitic vol] 70.6 fL 83.5-101 [facility] Monocyte distribution width [Entitic volume] in Blood by AutomatedOrdered By: Nancy Wilson on 07-12-2023 Monocyte distribution width Auto (Bld) [Entitic vol] 18.12 % 0.00-20.00 [facility] Monocytes Auto (Bld) [#/Vol] Ordered By: Nancy Wilson on 07-12-2023 Monocytes (Bld) [#/Vol] 1.0 10*3/uL 0.0-0.8 [facility] Monocytes/100 WBC Auto (Bld) Ordered By: Nancy Wilson on 07-12-2023 Monocytes/100 WBC (Bld) 10.2 % . [facility] Natriuretic peptide B [Mass/ Vol]Ordered By: Nancy Wilson on 07-12-2023 Natriuretic peptide B (Bld) [Mass/Vol] 34.0 pg/mL 5-100 [facility] Neutrophils Auto (Bld) [#/Vo l]Ordered By: Nancy Wilson on 07-12-2023 Neutrophils (Bld) [#/Vol] 6.2 10*3/uL 1.8-7.7 [facility] Neutrophils/100 WBC Auto (Bl d)Ordered By: Nancy Wilson on 07-12-2023 Neutrophils/100 WBC (Bld) 65.4 % . [facility] No Panel InformationOrdered By: Nancy Wilson on 07-12-2023 Estimated GFR (CKD-EPI) 42.789 mL/Min [facility] Creatinine Clearance (Chem 54.64 [facility] Nucleated erythrocytes [Pres ence] in Blood by Automated countOrdered By: Nancy Wilson on 07-12-2023 Nucleated RBC Auto Ql (Bld) 0.1 /100{WBC} 0-0.5 [facility] Partial Thromboplastin Timeo n 07-12-2023 aPTT Coag (Bld) [Time] 29.4 s Normal 25.1-36.5 [facility] Comment on above: Result Comment: A he matocrit value greater than 55% may lead to inaccurate results in coagulation testing. Patients having hematocrit values >55% require a special collection tube for coagulation studies. Please contact the laboratory at [phone] for redraw instructions. PERFORMED BY: [facility] [address] [place] [address] PATHOLOGIST FINANCIAL SERVICE REPRESENTATIVE CLIFFORD LOBATO M.D. Performed By: #### P TT, CBC, PT, BNP, CMP, HS TROP, CK ####[facility] [address] [place] [address] [facility] Platelet mean volume Auto (B ld) [Entitic vol]Ordered By: Nancy Wilson on 07-12-2023 Platelet mean volume (Bld) [Entitic vol] 9.1 fL 6.6-10.1 [facility] Platelets Auto (Bld) [#/Vol] Ordered By: Nancy Wilson on 07-12-2023 Platelets (Bld) [#/Vol] 233 10*3/uL 150-450 [facility] Potassium [Moles/volume] in Serum or PlasmaOrdered By: Nancy Wilson on 07-12-2023 Potassium [Moles/Vol] 3.9 mmol/L 3.5-5.1 [facility] Protein [Mass/volume] in Ser um or PlasmaOrdered By: Nancy Wilson on 07-12-2023 Protein [Mass/Vol] 7.0 g/dL 6.4-8.9 [facility] Prothrombin Time INRon 07-12 INR Coag (PPP) [Relative time] 1.1 {INR} Normal [facility] Comment on above: Result Comment: [...] valves: 3 - 4.5 Performed By: #### P TT, CBC, PT, BNP, CMP, HS TROP, CK #### [facility] [address] [place] [id number] [facility] PT Coag (PPP) [Time] 12.1 s Normal 9.0-12.9 [facility] Comment on above: Result Comment: A he matocrit value greater than 55% may lead to inaccurate results in coagulation testing. Patients having hematocrit values >55% require a special collection tube for coagulation studies. Please contact the laboratory at [phone] for redraw instructions. Performed By: #### P TT, CBC, PT, BNP, CMP, HS TROP, CK #### [facility] [address] [id number] [facility] Prothrombin time (PT)Ordered By: Nancy Wilson on 07-12-2023 PT Coag (PPP) [Time] 12.1 s 9.0-12.9 [facility] Comment on above: A hematocrit value g reater than 55% may lead to inaccurate results in coagulation testing. Patients having hematocrit values >55% require a special collection tube for coagulation studies. Please contact the laboratory at [phone] for redraw instructions. RBC Auto (Bld) [#/Vol]Ordere d By: Nancy Wilson on 07-12-2023 RBC (Bld) [#/Vol] 4.63 10*6/uL 3.90-5.60 [facility] Serum or plasma albumin/glob ulin mass ratioOrdered By: Nancy Wilson on 07-12-2023 Albumin/Globulin [Mass ratio] 1.3 {ratio} [facility] Serum or plasma anion gap de terminationOrdered By: Nancy Wilson on 07-12-2023 Anion gap [Moles/Vol] 13.4 mmol/L 6.0-15.0 [facility] Sodium [Moles/volume] in Ser um or PlasmaOrdered By: Nancy Wilson on 07-12-2023 Sodium [Moles/Vol] 136 mmol/L 136-145 [facility] Troponin I High Sensitivityo n 07-12-2023 Troponin I High Sensitivity 4.6 pg/mL Normal 0.0-20.0 [facility] Comment on above: Result Comment: PERF ORMED BY: [place] [address] PATHOLOGIST FINANCIAL SERVICE REPRESENTATIVE CLIFFORD LOBATO M.D. Performed By: #### P TT, CBC, PT, BNP, CMP, HS TROP, CK #### [facility] [address] [place] [address] Troponin I.cardiac [Mass/vol ume] in Serum or Plasma by Detection limit <= 0.01 ng/Ordered By: Nancy Wilson on 07-12-2023 Troponin I.cardiac DL <= 0.01 ng/mL [Mass/Vol] 4.6 pg/mL 0.0-20.0 [facility] Urea nitrogen [Mass/volume] in Serum or PlasmaOrdered By: Nancy Wilson on 07-12-2023 Urea nitrogen [Mass/Vol] 16 mg/dL 7-25 [facility] WBC Auto (Bld) [#/Vol]Ordere d By: Nancy Wilson on 07-12-2023 WBC (Bld) [#/Vol] 9.5 10*3/uL 4.1-10.5 [facility] XR chest 1V portableon 07-12 XR chest 1V portable [facility] Main [place] [address] [place] [address] XRay Report Signed Patient: Solomon Feldman SR MR#: [id number] : 1965 Acct:[id number] Age/Sex: 57 / M ADM Date: 07/12/23 [...] Sudeep Lind M.D.07/12/2023 5:08 PM Dictation Location: [place] [address] Transcribed By: [facility] 07/12/231707 Dictated By: Sudeep Lind DO 07/12/231706 Signed By: 07/12/231707 Normal [facility] Patient Educationon 06-02-20 23 Patient Education Urology [...] Follow these instructions at home: ? Take luep-rsl-pjlsimv and prescription medicines only as told by [...] Clinical Noteon Retail - Clinical Note [id number]#1.00TIFF [facility] Urology Office/Clinic Noteon 06-02-2023 Urology Office/Clinic Note Chief Complaint S/p to Cysto HPI Staff Sp [place] [facility] [place] Has not noticed any difference- [...] Blum, URL [facility] [place] [id number]- Additional Instructions: 1 month w/ cath volumes [...] Signed: 06/02/23 12:16 EST\.br\Electronically Co-Signed By: Mattie Foster\Date and Time Co-Signed: 06/02/23 12:04 EST Patient Educationon 05-03-20 Patient Education Normal [facility] Pathology Noteon 05-02-2023 Pathology Note [id number]#1.00TIFF [facility] Lab Reportson 04-14-2023 Lab Reports [id number]#1.00TIFF [facility] Operative Reporton Operative Report [id number]#1.00TIFF [facility] Patient Correspondenceon Patient Correspondence [id number]#1.00TIFF [facility] Lab Reportson 03-31-2023 Lab Reports [id number]#1.00TIFF [facility] RAD - MISCon 03-31-2023 RAD - MISC [id number]#1.00TIFF [facility] Patient Correspondenceon Patient Correspondence [id number]#1.00TIFF [facility] Formson 03-23-2023 Forms [id number]#1.00TIFF [facility] A1C HEMOGLOBINon 03-15-2023 HbA1c (Bld) [Mass fraction] 7.5 % [employer] Other HbA1c (Bld) [Mass fraction]o n 03-15-2023 A1C HEMOGLOBIN [employer] Other Lab Reportson 03-09-2023 Lab Reports [id number]#1.00TIFF [facility] Consultation Noteon 02-28-20 Consultation Note [id number]#1.00CD:12 7 [facility] Consent for Procedure/Surger yon 02-15-2023 Consent for Procedure/Surgery [id number]#1.00CD:12 7 Normal [facility] Office Visit [...] in adult Healthy Weight Tips; Status:Complete; Done: [id number] Patient Instructions Please bring all medicines, vitamins, [...] Sia HERRERA, (more content not included)... Normal [employer] Tobacco Screening.on 023 Fall risk assessment c) Not medically indicated -[facility] 250 DO Work Phone: Tobacco use status CP b) No -[facility] 250 DO Work Phone: Tobacco Screening. Yes [facility] [facility] 250 DO Work Phone: Consent for Procedure/Surger yon 02-14-2023 Consent for Procedure/Surgery [id number]#1.00CD:1 27 [facility] Consent for Procedure/Surgery [id number]#1.00CD:1 27 [facility] Consent for Treatmenton 02-03 Consent for Treatment [id number]#1.00CD:12 7 [facility] IntraOperative Documentson 0 02-14-2023 IntraOperative Documents [id number]#1.00CD:1 27 [facility] IntraOperative Documents [id number]#1.00CD:1 27 [facility] Main OR Intraoperative Recor don 02-14-2023 Main OR Intraoperative Record IntraOp Document Type FTURO Summary Primary Physician: Yeyo ROWE MD Finalized Date/Time: 02/14/23 10:18:58 Pt. Name: GASTON CHRISTIAN, SOLOMON Aceves/Sex: 1965 Male Med Rec #: [id number] Physician: Yeyo ROWE MD Financial #: [id number] Pt. Type: O Room/Bed: / Admit/Disch: 02/14/23 [...] Sheri Daniel Role Performed Surgeon - Primary Architectural Representative - Primary Scrub - Primary Time In [...] GASTON CHRISTIANSOLOMON/Sex: 1965 Male Med Rec #: [id number] Physician: Yeyo ROWE MD Financial #: [id number] Pt. Type: O Room/Bed: / Admit/Disch: 02/14/23 [...] [facility] Center Operative Reporton Operative Report Patient: Joe FELDMAN [...] By: Yeyo ROWE MD\.br\Date and Time Signed: 02/14/23 09:52 EDT [...] including vitamins, herbs, eye drops, creams, and sfzx-lgk-qigvojt medicines. ? Any problems you or family [...] tells you to take them. ? Taking ijca-vew-gyvfmou medicines, vitamins, herbs, and supplements. Surgery safety [...] Center Progress Note-Physicianon Progress Note-Physician Patient: SOLOMON FEDLMAN SR Age: 57 years Sex: Male : [...] mg = 1 tab(s), PRN, SubLingual, q5min [place] 325 mg-5 mg oral tablet 1 tab(s), [...] 278.00 / Possible Fibromyalgia / SNOMED CT [id number]-6255-27B2-6 383789Y79D9 / Confirmed Restless leg / ICD-9-CM 333.94 / Confirmed Arthritis / SNOMED CT 01NY8190-0N7Z-85S4-5N0B-F YY5W058D851 / Confirmed Hyperlipidemia / SNOMED CT 40148982 / Confirmed Smoker / SNOMED CT U667DC9P-3231-39H9-8406-K YF1S7174SR1 / Confirmed Added secondary to documentation in Social History. Asthma / SNOMED CT 850710894 / Confirmed COPD type A / SNOMED CT 691147021 / Confirmed Head ache / SNOMED CT 67539451 / Confirmed Heart attack / SNOMED CT 98157065 / Confirmed Heart disease / SNOMED CT 91445633 / Confirmed Heart murmur / SNOMED CT 413725904 / Confirmed Urinary retention / SNOMED CT 652261101 / Confirmed BPH with obstruction/lower urinary tract symptoms / SNOMED CT 6492313234 / Confirmed Orchitis / SNOMED CT 793559655 / Confirmed Gross hematuria / SNOMED CT 064683200 / Confirmed Tobacco use / SNOMED CT TVFU8692-7506-5C77-J3I1-9 43940CM5QC3 / Confirmed Added secondary to social history documentation. Histories Past Medical History: Active Fibromyalgia (T6N580Z9-F89M-3951-29K2- 7158671Q50M9) Restless leg (333.94) Arthritis (66OM5721-7E1X-52O9-4S7H- ALU4L867S886) Hyperlipidemia (98977170) Resolved HTN [Hypertension] (401.9): Resolved. NIDDM (250.00): Resolved. GERD [Gastroesophageal reflux disease] (530.81): Resolved. CHF (congestive heart failure) (K9976467-4P1W-9H3Z-0Q27- J193959S7L67): Resolved. FL (myocardial infarction) (990V9RPI-30R8-2J1X-5W58- 47241O16G8VN): Resolved. Family History: Diabetes mellitus Mother Heart disease Mother Alcoholism Brother Drug addiction Brother Acute myocardial infarction Mother Grandparent Procedure history: Bilateral Eye Surgery. Comments: 07/10/2014 17:25 ALESHA Cormier RN, Kati bilateral cataracts with iol implants Bilateral Carpal Tunnel Surgery. cardiac stents. Appendectomy (975568875). Colonoscopy (086896334). Cataract extraction and insertion of intraocular lens (2071696358). Procedure on back (455814767). Social History Social & Psychosocial Habits Alcohol [...] EDT Consent for Treatmenton Consent for Treatment [id number]#1.00CD:12 7 Normal [facility] Ambulatory Visit Summaryon 0 01-30-2023 Ambulatory Visit Summary SOLOMON FELDMAN SR :1965 Visit Date:01/30/2023 Ambulatory Visit Instructions Your Diagnosis Urinary retention Gross hematuria BPH with obstruction/lower urinary tract symptoms Orchitis Your Care Team Attending Physician - Yeyo ROWE MD Primary Care Physician - JENARO LYNCH DO This Is Your Medications List Contact prescribing physician if questions or concerns acetaminophen-hydrocodone (Postville 325 mg-5 mg oral tablet) albuterol (ProAir [...] [facility] [address] [place] [id number] Medications What How Much When Instructions Unchanged acetaminophen-hydrocodone ([place] 325 mg-5 mg oral tablet) 1 Tablets [...] Normal [facility] Patient Educationon 01-31-20 Patient Education Urology Urodynamic [...] including vitamins, herbs, eye drops, creams, and fmfu-akl-cuwprem medicines. ? Whether you are or may [...] [facility] [address], [place] [phone] Additional Instructions: sched cysto/uros Patient Education Urodynamic [...] failure) GERD [Gastroesophageal reflux disease] HTN [Hypertension] FL (myocardial infarction) NIDDM Procedure/Surgical History Appendectomy, Bilateral [...] Sutton\.br\Date and Time Signed: 01/30/23 11:38 EDT [facility] CARDIAC STRESS/REST INJE CTIONon 01-25-2023 [facility] CARDIAC STRESS/REST INJECTION Patient Name: SOLOMON FELDMAN STUDY: MYOCARDIAL PERFUSION STRESS TEST WITH EXERCISE CONVERTED TO LEXISCAN Performing facility: [facility], [address] [place] [address], [address], [address] Provider: Dolores Feldman RN, MONOTYPE MACHINIST PCP: Dr. Jenaro Lynch Supervising provider: Pascale Arnold MD, [facility] INDICATION: Anginal equivalent CAD; HISTORY: Gender: M; Age: 57 y/o ; Height: 182.88 cm; Weight: 97.2220505 kg. High Cholesterol; CAD; Diabetes; HTN; Palpitations; Chest Pain; Quit smoking unknown years ago. COMPARISON: Previous nuclear testing completed at [facility]. ACCESSION NUMBER(S): [id number]; [id number]; [id number] ORDERING CLINICIAN: DOLORES FELDMAN TECHNIQUE: ONE DAY [...] Electronically signed by: PASCALE ARNOLD MD Normal [facility] No Panel Informationon 01-25 Normal -[facility] [...] contact the office if new symptoms arise. LINING SCRUBBER after procedure Chief Complaint Routine f/u: 'I [...] Screening.on 023 Adult depression screening assessment No [facility] [address] DO Work Phone: Tobacco use status [facility] b) No [facility] 600 DO Work Phone: Ambulatory Visit Summaryon 0 12-28-2022 Ambulatory Visit Summary GASTON CHRISTIAN, SOLOMON Daniel :1965 Visit Date:12/28/2022 Ambulatory Visit Instructions Your Care Team Attending Physician - SOLEDAD HERRERA, Yeyo Blum Primary Care Physician - JENARO LYNCH DO This Is Your Medications List acetaminophen-hydrocodone ([place] 325 mg-5 mg oral tablet) albuterol (ProAir [...] Yeyo ROWE MD Where: [facility] Formson 11-24-2022 Forms [id number]#1.00CD:127 [facility] Screenson 11-24-2022 Screens [id number]#1.00CD:1 27 [facility] Patient Educationon [...] provider. Document Revised: 08/11/2021 Document Reviewed: 05/07/2021 [employer] [place] Patient Education ? 2021 [employer]. Marquise Chatman [facility] Urology Office/Clinic [...] bid x 3 weeks. Rx sent to [facility]. Follow-up With When Contact Information SOLEDAD HERRERA, Yeyo Blum, URL [facility] [address] [place] [address]- Additional Instructions: 1 month for cath change [...] failure) GERD [Gastroesophageal reflux disease] HTN [Hypertension] FL (myocardial infarction) NIDDM Procedure/Surgical History Appendectomy, Bilateral Carpal Tunnel Surgery, Bilateral Eye Surgery, cardiac stents, Ca (more content not included)... [facility] Comment on above: Result Comment: Elec tronically Signed By: Yeyo ROWE MD R\.br\Date and Time Signed: 11/23/22 12:47 EDT\.br\Electronically Co-Signed By: Lorie Leblanc\.br\Date and Time Co-Signed: 11/23/22 12:46 EDT Alanine aminotransferase [En zymatic activity/volume] in Serum or PlasmaOrdered By: Jenaro Lynch on 09-27-2022 ALT [Catalytic activity/Vol] 15 U/L 7-52 [facility] Albumin [Mass/volume] in Ser um or Plasma by Bromocresol green (BCG) dye binding methoOrdered By: Jenaro Lynch on 09-27-2022 Albumin BCG dye [Mass/Vol] 4.1 g/dL 3.5-5.7 [facility] Alkaline phosphatase [Enzyma tic activity/volume] in Serum or PlasmaOrdered By: Jenaro Lynch on 09-27-2022 ALP [Catalytic activity/Vol] 116 U/L 34-104 [facility] Aspartate aminotransferase [ Enzymatic activity/volume] in Serum or PlasmaOrdered By: Jenaro Lynch on 09-27-2022 AST [Catalytic activity/Vol] 15 U/L 13-39 [facility] Basophils Auto (Bld) [#/Vol] Ordered By: Jenaro Lynch on 09-27-2022 Basophils (Bld) [#/Vol] 0.1 10*3/uL 0.0-0.2 [facility] Basophils/100 WBC Auto (Bld) Ordered By: Jenaro Lynch on 09-27-2022 Basophils/100 WBC (Bld) 1.1 % . [facility] Bilirubin.total [Mass/volume ] in Serum or PlasmaOrdered By: Jenaro Lynch on 09-27-2022 Bilirubin [Mass/Vol] 0.4 mg/dL 0.3-1.0 [facility] Calcium [Mass/volume] in Ser um or PlasmaOrdered By: Jenaro Lynch on 09-27-2022 Calcium [Mass/Vol] 8.8 mg/dL 8.6-10.3 [facility] Carbon dioxide, total [Moles /volume] in Serum or PlasmaOrdered By: Jenaro Lynch on 09-27-2022 CO2 [Moles/Vol] 27.2 mmol/L 21.0-31.0 [facility] Chloride [Moles/volume] in S ilia or PlasmaOrdered By: Jenaro Lynch on 09-27-2022 Chloride [Moles/Vol] 99 mmol/L 98-107 [facility] Cholesterol [Mass/volume] in Serum or PlasmaOrdered By: Jenaro Lynch on 09-27-2022 Cholesterol [Mass/Vol] 104 mg/dL 140-200 [facility] Comment on above: Chol less than 200 m g/dl low riskChol 201-239 mg/dl borderline riskChol 240 mg/dl and greater high risk Cholesterol in LDL Calc [Mas s/Vol]Ordered By: Jenaro Lynch on 09-27-2022 Cholesterol in LDL [Mass/Vol] TNP [facility] Comment on above: Test not performed Cholesterol in LDL [Mass/vol ume] in Serum or PlasmaOrdered By: Jenaro Lynch on 09-27-2022 Cholesterol in LDL [Mass/Vol] 38 mg/dL 0-100 [facility] Comment on above: LDL ATP III CLASSIFI CATIONLDL less than 100 mg/dL OptimalLDL 100-129 mg/dL Near or above optimalLDL 130-159 mg/dL Borderline highLDL 160-189 mg/dL HighLDL greater than 189 mg/dL Very high Cholesterol in VLDL Calc [Ma ss/Vol]Ordered By: Jenaro Lynch on 09-27-2022 Cholesterol in VLDL [Mass/Vol] 99 mg/dL [facility] Creatinine [Mass/volume] in Serum or PlasmaOrdered By: Jenaro Lynch on 09-27-2022 Creatinine [Mass/Vol] 1.84 mg/dL 0.70-1.30 [facility] Eosinophils Auto (Bld) [#/Vo l]Ordered By: Jenaro Lynch on 09-27-2022 Eosinophils (Bld) [#/Vol] 0.7 10*3/uL 0.0-0.45 [facility] Eosinophils/100 WBC Auto (Bl d)Ordered By: Jenaro Lynch on 09-27-2022 Eosinophils/100 WBC (Bld) 5.9 % . [facility] Erythrocyte distribution wid th Auto (RBC) [Ratio]Ordered By: Jenaro Lynch on 09-27-2022 Erythrocyte distribution width (RBC) [Ratio] 16.0 % 12.0-14.8 [facility] Globulin Calc (S) [Mass/Vol] Ordered By: Jenaro Lynch on 09-27-2022 Globulin (S) [Mass/Vol] 2.9 g/dL [facility] Glucose [Mass/volume] in Ser um or PlasmaOrdered By: Jenaro Lynch on 09-27-2022 Glucose [Mass/Vol] 225 mg/dL 70-100 [facility] Comment on above: ADA recommended refe rence rangeRandom Glucose Reference Range is dependent on time and content of last meal. Glucose of more than 200 mg/dL in a nonstressed, ambulatory subject supports the diagnosis of Diabetes Mellitus. Hematocrit Auto (Bld) [Volum e fraction]Ordered By: Jenaro Lynch on 09-27-2022 Hematocrit (Bld) [Volume fraction] 41.0 % 38.8-50.0 [facility] Hemoglobin [Mass/volume] in BloodOrdered By: Jenaro Lynch on 09-27-2022 Hemoglobin (Bld) [Mass/Vol] 13.2 g/dL 13.0-17.0 [facility] Leukocytes [#/volume] correc jorge for nucleated erythrocytes in Blood by Automated counOrdered By: Jenaro Lynch on 09-27-2022 WBC corrected for nucl RBC Auto (Bld) [#/Vol] 12.4 10*3/uL 4.1-10.5 [facility] Lymphocytes Auto (Bld) [#/Vo l]Ordered By: Jenaro Lynch on 09-27-2022 Lymphocytes (Bld) [#/Vol] 2.3 10*3/uL 1.00-4.8 [facility] Lymphocytes/100 WBC Auto (Bl d)Ordered By: Jenaro Lynch on 09-27-2022 Lymphocytes/100 WBC (Bld) 18.2 % . [facility] MCH Auto (RBC) [Entitic mass ]Ordered By: Jenaro Lynch on 09-27-2022 MCH (RBC) [Entitic mass] 23.9 pg 27.5-35.2 [facility] MCHC Auto (RBC) [Mass/Vol]Or dered By: Jenaro Lynch on 09-27-2022 MCHC (RBC) [Mass/Vol] 32.2 g/dL 32.5-35.6 [facility] MCV Auto (RBC) [Entitic vol] Ordered By: Jenaro Lynch on 09-27-2022 MCV (RBC) [Entitic vol] 74.3 fL 83.5-101 [facility] [facility] Monocytes Auto (Bld) [#/Vol] Ordered By: Jenaro Lynch on 09-27-2022 Monocytes (Bld) [#/Vol] 1.0 10*3/uL 0.0-0.8 [facility] Monocytes/100 WBC Auto (Bld) Ordered By: Jenaro Lynch on 09-27-2022 Monocytes/100 WBC (Bld) 7.9 % . [facility] Neutrophils Auto (Bld) [#/Vo l]Ordered By: Jenaro Lynch on 09-27-2022 Neutrophils (Bld) [#/Vol] 8.3 10*3/uL 1.8-7.7 [facility] Neutrophils/100 WBC Auto (Bl d)Ordered By: Jenaro Lynch on 09-27-2022 Neutrophils/100 WBC (Bld) 66.9 % . [facility] No Panel InformationOrdered By: Jenaro Lynch on 09-27-2022 Estimated GFR (CKD-EPI) 42.232 mL/Min [facility] Creatinine Clearance (Chem N/A [facility] Nucleated erythrocytes [Pres ence] in Blood by Automated countOrdered By: Jenaro Lynch on 09-27-2022 Nucleated RBC Auto Ql (Bld) 0.1 /100{WBC} 0-0.5 [facility] Platelet mean volume Auto (B ld) [Entitic vol]Ordered By: Jenaro Lynch on 09-27-2022 Platelet mean volume (Bld) [Entitic vol] 9.1 fL 6.6-10.1 [facility] Platelets Auto (Bld) [#/Vol] Ordered By: Jenaro Lynch on 09-27-2022 Platelets (Bld) [#/Vol] 209 10*3/uL 150-450 [facility] Potassium [Moles/volume] in Serum or PlasmaOrdered By: Jenaro Lynch on 09-27-2022 Potassium [Moles/Vol] 4.3 mmol/L 3.5-5.1 [facility] Protein [Mass/volume] in Ser um or PlasmaOrdered By: Jenaro Lynch on 09-27-2022 Protein [Mass/Vol] 7.0 g/dL 6.4-8.9 [facility] RBC Auto (Bld) [#/Vol]Ordere d By: Jenaro Lynch on 09-27-2022 RBC (Bld) [#/Vol] 5.52 10*6/uL 3.90-5.60 [facility] Serum or plasma albumin/glob ulin mass ratioOrdered By: Jenaro Lynch on 09-27-2022 Albumin/Globulin [Mass ratio] 1.4 {ratio} [facility] Serum or plasma anion gap de terminationOrdered By: Jenaro Lynch on 09-27-2022 Anion gap [Moles/Vol] 14.1 mmol/L 6.0-15.0 [facility] Serum or plasma high density lipoprotein (HDL) cholesterol measurementOrdered By: Jenaro Lynch on 09-27-2022 Cholesterol in HDL [Mass/Vol] 21 mg/dL 29-71 [facility] Comment on above: HDL CHOL ATP-III CLA SSIFICATION Cardiovascular RiskHDL > or equal to 60 mg/dL LOWHDL < 40 mg/dL HIGH Serum or plasma total choles terol/high density lipoprotein (HDL) cholesterol mass ratOrdered By: Jenaro Lynch on 09-27-2022 Cholesterol.total/Chol esterol in HDL [Mass ratio] 5.0 {ratio} <5.0 [facility] Sodium [Moles/volume] in Ser um or PlasmaOrdered By: Jenaro Lynch on 09-27-2022 Sodium [Moles/Vol] 136 mmol/L 136-145 [facility] Thyrotropin [Units/volume] i n Serum or PlasmaOrdered By: Jenaro Lynch on 09-27-2022 TSH Qn 3.62 m[IU]/L 0.45-5.33 [facility] Triglyceride [Mass/volume] i n Serum or PlasmaOrdered By: Jenaro Lynch on 09-27-2022 Triglyceride [Mass/Vol] 497 mg/dL 0-149 [facility] Comment on above: If the triglyceride [...] on 09-27-2022 Urate [Mass/Vol] 6.2 mg/dL 2.4-7.6 [facility] Urea nitrogen [Mass/volume] in Serum or PlasmaOrdered By: Jenaro Lynch on 09-27-2022 Urea nitrogen [Mass/Vol] 15 mg/dL 25 [facility] WBC Auto (Bld) [#/Vol]Ordere d By: Jenaro Lynch on 09-27-2022 WBC (Bld) [#/Vol] 12.4 10*3/uL 4.1-10.5 [facility] A1C HEMOGLOBINon 02-15-2022 HbA1c (Bld) [Mass fraction] % [employer] Other HbA1c (Bld) [Mass fraction]o n 02-15-2022 A1C HEMOGLOBIN [employer] Other Tobacco Screening.on 022 Adult depression screening assessment No [facility] [facility] 250 DO Work Phone: Tobacco use status CPHS b) No [facility] 250 DO Work Phone: A1C HEMOGLOBINon 07-27-2021 HbA1c (Bld) [Mass fraction] 11.8 % [employer] [facility] [employer] Other HbA1c (Bld) [Mass fraction]o n 07-27-2021 A1C HEMOGLOBIN [employer] Other Vital Signs Date Time Vital Sign Value Performing Clinician Facility 10-24-2023 10:56-0400 Body height 182.9 cm Raulito Inman MD Work Phone: [facility] 10-24-2023 10:56-0400 Diastolic blood pressure 86 mm[Hg] Raulito Inman MD Work Phone: [facility] 10-24-2023 10:56-0400 Heart rate 104 /min Raulito Inman MD Work Phone: [facility] 10-24-2023 10:56-0400 Systolic blood pressure 134 mm[Hg] Raulito Inman MD Work Phone: [facility] 10-23-2023 09:37-0400 Blood Pressure Location Padmini Montes [facility] 10-23-2023 09:37-0400 Diastolic blood pressure 82 mm[Hg] Padmini Montes [facility] 10-23-2023 09:37-0400 Heart rate 107 /min Padmini Montes [facility] 10-23-2023 09:37-0400 SaO2% (BldA) [Mass fraction] 98 % Mohamed Simon [facility] 10-23-2023 09:37-0400 Systolic blood pressure 130 mm[Hg] Padmini Montes [facility] 07-31-2023 12:00-0500 Diastolic blood pressure 63 mm[Hg] DO Jenaro Kuns Work Phone: [facility] 07-31-2023 12:00-0500 Heart rate 75 /min DO Jenaro Kuns Work Phone: [facility] 07-31-2023 12:00-0500 Systolic blood pressure 108 mm[Hg] DO Jenaro Kuns Work Phone: [facility] 07-31-2023 08:33-0500 Respiratory rate 18 /min DO Jenaro Kuns Work Phone: [facility] 07-12-2023 18:03-0500 Diastolic blood pressure 73 mm[Hg] DO Jenaro Kuns Work Phone: [facility] 07-12-2023 18:03-0500 Heart rate 76 /min DO Jenaro Kuns Work Phone: [facility] 07-12-2023 18:03-0500 Respiratory rate 20 /min DO Jenaro Kuns Work Phone: [facility] 07-12-2023 18:03-0500 SaO2% (BldA) [Mass fraction] 98 % DO Jenaro Kuns Work Phone: [facility] 07-12-2023 18:03-0500 Systolic blood pressure 125 mm[Hg] DO Jenaro Kuns Work Phone: [facility] 07-12-2023 16:15-0500 Body height 182.88 cm DO Jenaro Kuns Work Phone: [facility] 07-12-2023 16:15-0500 Body temperature 98.9 [degF] DO Jenaro Kuns Work Phone: [facility] 07-12-2023 16:15-0500 Body weight 99.25 kg DO Jenaro Syed Work Phone: [facility] 06-02-2023 10:56-0500 Blood Pressure Location Yeyo ROWE [facility] 06-02-2023 10:56-0500 Body temperature 96.98 [degF] Yeyo ROWE [facility] 06-02-2023 10:56-0500 Diastolic blood pressure 84 mm[Hg] Yeyo ROWE [facility] 06-02-2023 10:56-0500 Heart rate 68 /min Yeyo ROWE [facility] 06-02-2023 10:56-0500 Systolic blood pressure 124 mm[Hg] Yeyo ROWE [facility] 04-06-2023 13:15-0400 Body height 180.34 cm Jenaro Lynch Other [employer] [facility] [employer] Other 04-06-2023 13:15-0400 Body mass index (BMI) [Ratio] 29.43 kg/m2 Jenaro Lynch Other [employer] Other 04-06-2023 13:15-0400 Body weight 95.71 kg Jenaro Lynch Other [employer] Other 04-06-2023 13:15-0400 Diastolic blood pressure 70 mm[Hg] Jenaro Lynch Other [employer] Other 04-06-2023 13:15-0400 Respiratory rate 18 /min Jenaro Lynch Other [employer] Other 04-06-2023 13:15-0400 SaO2% (BldA) [Mass fraction] 97 % Jenaro Lynch Other [employer] Other 04-06-2023 13:15-0400 Systolic blood pressure 100 mm[Hg] Jenaro Lynch Other [employer] Other 03-15-2023 08:30-0400 Body height 180.34 cm Jenaro Lynch Other [employer] Other 03-15-2023 08:30-0400 Body mass index (BMI) [Ratio] 29.01 kg/m2 Jenaro Lynch Other [employer] Other 03-15-2023 08:30-0400 Body weight 94.35 kg Jenaro Lynch Other [employer] Other 03-15-2023 08:30-0400 Diastolic blood pressure 62 mm[Hg] Jenaro Lynch Other [employer] Other 03-15-2023 08:30-0400 Respiratory rate 16 /min Jenaro Lynch Other [employer] Other 03-15-2023 08:30-0400 SaO2% (BldA) [Mass fraction] 97 % Jenaro Lynch Other [employer] Other 03-15-2023 08:30-0400 Systolic blood pressure 88 mm[Hg] Jenaro Lynch Other [employer] Other 02-15-2023 10:04-0400 Body height 182.88 cm Jenarogorge Lynch Work Phone: [facility] 250 DO Work Phone: 02-15-2023 10:04-0400 Body mass index (BMI) [Ratio] 28.62 kg/m2 Jenaro Mari Lynch Work Phone: [facility] 250 DO Work Phone: 02-15-2023 10:04-0400 Body surface area Derived from formula 2.18 m2 Jenarogorge Fraustojoe Work Phone: [facility] 250 DO Work Phone: 02-15-2023 10:04-0400 Body weight 95.71 kg Jenaro Lynch Work Phone: [facility] 250 DO Work Phone: 02-15-2023 10:04-0400 Diastolic blood pressure 70 mm[Hg] Jenaro Mari Lynch Work Phone: [facility] 250 DO Work Phone: 02-15-2023 10:04-0400 Heart rate 76 /min Jenarogorge Lynch Work Phone: [facility] 250 DO Work Phone: 02-15-2023 10:04-0400 Systolic blood pressure 102 mm[Hg] Jenaro Lynch Work Phone: [facility] 250 DO Work Phone: 01-30-2023 10:23-0400 Blood Pressure Location Yeyo ROWE [facility] 01-30-2023 10:23-0400 Diastolic blood pressure 74 mm[Hg] Yeyo ROWE [facility] 01-30-2023 10:23-0400 Heart rate 68 /min Yeoy ROWE [facility] 01-30-2023 10:23-0400 Respiratory rate 16 /min Yeyo ROWE [facility] 01-30-2023 10:23-0400 Systolic blood pressure 130 mm[Hg] Yeyo ROWE [facility] 01-11-2023 15:08-0400 Body height 180.34 cm Jenaro Lynch Work Phone: [facility] 600 DO Work Phone: 01-11-2023 15:08-0400 Body mass index (BMI) [Ratio] 30.13 kg/m2 Jenaro Lynch Work Phone: [facility] 600 DO Work Phone: 01-11-2023 15:08-0400 Body surface area Derived from formula 2.18 m2 Jenaro Lynch Work Phone: [facility] [employer] 600 DO Work Phone: 01-11-2023 15:08-0400 Body weight 97.98 kg Jenaro Lynch Work Phone: [facility] 600 DO Work Phone: 01-11-2023 15:08-0400 Diastolic blood pressure 86 mm[Hg] Jenaro Lynch Work Phone: [facility] 600 DO Work Phone: 01-11-2023 15:08-0400 Heart rate 74 /min Jenaro Lynch Work Phone: [facility] 600 DO Work Phone: 01-11-2023 15:08-0400 Systolic blood pressure 122 mm[Hg] Jenaro Lynch Work Phone: [facility] 600 DO Work Phone: 12-01-2022 12:45-0400 Body height 180.34 cm Jenaro Lynch Other [employer] [employer] Other 12-01-2022 12:45-0400 Body mass index (BMI) [Ratio] 29.73 kg/m2 Jenaro Lynch Other [facility] [employer] Other 12-01-2022 12:45-0400 Body weight 96.71 kg Jenaro Lynch Other [facility] [employer] Other 12-01-2022 12:45-0400 Diastolic blood pressure 70 mm[Hg] Jenaro Lynch Other [facility] [employer] Other 12-01-2022 12:45-0400 Respiratory rate 18 /min Jenaro Lynch Other [employer] Other 12-01-2022 12:45-0400 SaO2% (BldA) [Mass fraction] 94 % Jenaro Lynch Other [employer] Other 12-01-2022 12:45-0400 Systolic blood pressure 122 mm[Hg] Jenaro Lynch Other [place] [employer] Other 11-23-2022 11:38-0400 Blood Pressure Location Yeyo ROWE [facility] 11-23-2022 11:38-0400 Diastolic blood pressure 85 mm[Hg] Yeyo ROWE [facility] 11-23-2022 11:38-0400 Heart rate 76 /min Yeyo ROWE [facility] 11-23-2022 11:38-0400 Systolic blood pressure 130 mm[Hg] Yeyo ROWE [facility] 07-04-2022 10:30-0500 Body height 180.34 cm Jenaro Lynch Other [employer] [facility] [employer] Other 07-04-2022 10:30-0500 Body mass index (BMI) [Ratio] 29.43 kg/m2 Jenaro Lynch Other [employer] Other 07-04-2022 10:30-0500 Body weight 95.71 kg Jenaro Lynch Other [employer] Other 07-04-2022 10:30-0500 Diastolic blood pressure 86 mm[Hg] Jenaro Lynch Other [employer] Other 07-04-2022 10:30-0500 Respiratory rate 16 /min Jenaro Lynch Other [employer] Other 07-04-2022 10:30-0500 Systolic blood pressure 146 mm[Hg] Jenaro Lynch Other [employer] Other 02-15-2022 13:45-0400 Body height 180.34 cm Jenaro Lynch Other [employer] Other 02-15-2022 13:45-0400 Body mass index (BMI) [Ratio] 30.12 kg/m2 Jenaro Lynch Other [employer] Other 02-15-2022 13:45-0400 Body weight 97.98 kg Jenaro Lynch Other [facility] [employer] Other 02-15-2022 13:45-0400 Diastolic blood pressure 62 mm[Hg] Jenaro Lynch Other [facility] [employer] Other 02-15-2022 13:45-0400 Respiratory rate 16 /min Jenaro Lynch Other [place] [employer] Other 02-15-2022 13:45-0400 SaO2% (BldA) [Mass fraction] 96 % Jenaro Lynch Other [facility] [employer] Other 02-15-2022 13:45-0400 Systolic blood pressure 100 mm[Hg] Jenaro Lynch Other [facility] [employer] Other 10-26-2021 10:01-0400 Body height 180.34 cm Jenaro Lynch Work Phone: [facility] [employer] 250 DO Work Phone: 10-26-2021 10:01-0400 Body mass index (BMI) [Ratio] 29.99 kg/m2 Jenaro Lynch Work Phone: [facility] [employer] 250 DO Work Phone: 10-26-2021 10:01-0400 Body surface area Derived from formula 2.17 m2 Jenaro Lynch Work Phone: [facility] [employer] 250 DO Work Phone: 10-26-2021 10:01-0400 Body weight 97.52 kg Jenaro Lynch Work Phone: [facility] 250 DO Work Phone: 10-26-2021 10:01-0400 Diastolic blood pressure 70 mm[Hg] Jenaro Mari Lynch Work Phone: [facility] [employer] 250 DO Work Phone: 10-26-2021 10:01-0400 Heart rate 68 /min Jenaro Lynch Work Phone: [facility] [employer] 250 DO Work Phone: 10-26-2021 10:01-0400 Systolic blood pressure 104 mm[Hg] Jenaro Lynch Work Phone: [facility] [employer] 250 DO Work Phone: 10-19-2021 12:20-0400 Body height 180.34 cm Amina Fagan Other [employer] Other 10-19-2021 12:20-0400 Body mass index (BMI) [Ratio] 30.65 kg/m2 Amina Kinseys Other [employer] Other 10-19-2021 12:20-0400 Body temperature 96.8 [degF] Amina Kinseys Other [employer] Other 10-19-2021 12:20-0400 Body weight 99.7 kg Amina Kinseys Other [employer] Other 10-19-2021 12:20-0400 Diastolic blood pressure 71 mm[Hg] Amina Kinseys Other [employer] Other 10-19-2021 12:20-0400 Respiratory rate 18 /min Amina Kinseys Other [employer] Other 10-19-2021 12:20-0400 SaO2% (BldA) [Mass fraction] 98 % Amina Kinseys Other [employer] Other 10-19-2021 12:20-0400 Systolic blood pressure 111 mm[Hg] Amina Fagan Other [employer] Other 07-27-2021 14:00-0500 Body height 180.34 cm Jenaro Lynch Other [employer] Other 07-27-2021 14:00-0500 Body mass index (BMI) [Ratio] 30.4 kg/m2 Jenaro Lynch Other [employer] Other 07-27-2021 14:00-0500 Body weight 98.88 kg Jenaro Lynch Other [employer] Other 07-27-2021 14:00-0500 Diastolic blood pressure 76 mm[Hg] Jenaro Lynch Other [employer] Other 07-27-2021 14:00-0500 Respiratory rate 18 /min Jenaro Lynch Other [employer] Other 07-27-2021 14:00-0500 SaO2% (BldA) [Mass fraction] 98 % Jenaro Lynch Other [employer] Other 07-27-2021 14:00-0500 Systolic blood pressure 112 mm[Hg] Jenaro Lynch Other [employer] Other Encounters Encounter Date Encounter Type Care Provider Facility Start: 02-12-2024 ambulatory Yeyo Ley ty:[facility] Start: 11-14-2023 End: 11-14-2023 Evaluation and management of inpatient [facility] Start: 11-07-2023 End: 11-14-2023 [facility] Start: 11-07-2023 End: 11-14-2023 Evaluation and management of inpatient [facility] Jennifer [facility] Start: 10-24-2023 End: 10-24-2023 ambulatory [facility] Start: 10-24-2023 End: 10-24-2023 Encounter for preprocedural cardiovascular examination [facility] Start: 10-24-2023 End: 10-24-2023 Office outpatient visit 25 minutes Raulito Inman MD Work Phone: [facility] Comment on above: History of PTCA; Hyperlipidemia, unspecified hyperlipidemia type; Encounter for pre-operative cardiovascular clearance; Former smoker Start: 10-24-2023 End: 10-24-2023 Patient encounter status Raulito Inman MD Work Phone: [facility] Work Phone: Start: 10-23-2023 End: 10-24-2023 ambulatory XXXX NONE [facility] Start: 10-23-2023 End: 10-23-2023 [facility] Start: 10-19-2023 End: 10-20-2023 ambulatory Padmini Montes [place] Start: 10-19-2023 End: 10-19-2023 Patient encounter procedure Padmini Montes [facility] Start: 10-18-2023 End: 10-18-2023 [facility] Start: 10-06-2023 Non-patient / Non-visit DO Phillip Lynch Work Phone[facility] Work Phone: Start: 10-05-2023 End: 10-05-2023 ambulatory Paula Elias Facility:[facility] Start: 10-05-2023 End: 10-05-2023 ambulatory DO Jenarogorge Fraustos Work Phone: [facility] Work Phone: Start: 10-05-2023 End: 10-05-2023 Departed Referred DO Jenaro Jetts Work Phone: [facility] Start: 10-05-2023 Non-patient / Non-visit DO Phillip an Kuns Work Phone: [facility] Work Phone: Start: 10-04-2023 Non-patient / Non-visit DO Phillip an Kuns Work Phone: [facility] Work Phone: Start: 10-03-2023 Non-patient / Non-visit DO Phillip an Kuns Work Phone: [facility] Work Phone: Start: 10-02-2023 End: 10-02-2023 ambulatory Paula Elias Facility:[facility] Start: 10-02-2023 End: 10-02-2023 ambulatory DO Jenaro Fraustos Work Phone: [facility] Work Phone: Start: 10-02-2023 End: 10-02-2023 Departed Referred DO Jenarogorge Fraustos Work Phone: [facility] Start: 10-02-2023 Non-patient / Non-visit DO Phillip an Kuns Work Phone: [facility] Work Phone: Start: 10-01-2023 Non-patient / Non-visit DO Phillip an Kuns Work Phone: [facility] Work Phone: Start: 09-30-2023 Non-patient / Non-visit DO Phillip an Kuns Work Phone: [facility] Work Phone: Start: 09-27-2023 Non-patient / Non-visit DO Phillip an Kuns Work Phone: [facility] Work Phone: Start: 09-21-2023 End: 09-21-2023 ambulatory Jenaro Lynch Facility:[facility] Start: 09-21-2023 End: 09-21-2023 ambulatory DO Jenaro Kuns Work Phone: [facility] Work Phone: Start: 09-21-2023 End: 09-21-2023 Departed Referred DO Jenaro Jetts Work Phone: [facility] Start: 09-21-2023 Non-patient / Non-visit DO Phillip an Kuns Work Phone: [facility] Work Phone: Start: 09-18-2023 Non-patient / Non-visit DO Phillip an Kuns Work Phone: [facility] Work Phone: Start: 09-08-2023 End: 09-09-2023 ambulatory Yeyo ROWE Facility:[facility] Start: 09-08-2023 End: 09-08-2023 Patient encounter procedure Yeoy ROWE [facility] Start: 08-10-2023 Non-patient / Non-visit DO Phillip an Kuns Work Phone: [facility] Work Phone: Start: 08-08-2023 Non-patient / Non-visit DO Phillip an Kuns Work Phone: [facility] Work Phone: Start: 08-07-2023 Non-patient / Non-visit DO Phillip an Kuns Work Phone: [facility] Work Phone: Start: 08-06-2023 Non-patient / Non-visit DO Phillip an Kuns Work Phone: [facility] Work Phone: Start: 08-05-2023 Non-patient / Non-visit DO Phillip an Kuns Work Phone: [facility] Work Phone: Start: 08-04-2023 Non-patient / Non-visit DO Phillip an Kuns Work Phone: [facility] Work Phone: Start: 08-03-2023 Non-patient / Non-visit DO Phillip an Kuns Work Phone: [facility] Work Phone: Start: 07-31-2023 ambulatory Jenaro Lynch Facility:[facility] Start: 07-31-2023 Registered Recurring DO Jenarogorge Fraustojoe Work Phone: [facility] - [facility] Work Phone: Start: 07-26-2023 Non-patient / Non-visit DO Phillip an Jetts Work Phone: [facility] Work Phone: Start: 07-12-2023 End: 07-12-2023 Emergency department patient visit Jenaro Lynch Facility:[facility] Start: 07-12-2023 End: 07-12-2023 Emergency department patient visit DO Jenaro Lynch Work Phone: [facility] Work Phone: Start: 07-07-2023 End: 07-07-2023 ambulatory Jenaro Lynch Other [employer] Other Start: 07-07-2023 Telephone encounter Jenaro Lynch [facility] Start: 07-03-2023 End: 07-04-2023 ambulatory Yeyo ROWE Facility: [facility] Start: 06-26-2023 End: 06-26-2023 ambulatory Jenaro Lynch Other [employer] Other Start: 06-26-2023 Telephone encounter Jenaro Syed [facility] Start: 06-02-2023 End: 06-03-2023 ambulatory Yeyo ROWE Facility:[facility] Start: 06-02-2023 End: 06-02-2023 Patient encounter procedure Yeyo ROWE [facility] Start: 05-16-2023 End: 05-16-2023 ambulatory Jenaro Fraustojoe Other [employer] Other Start: 05-16-2023 Telephone encounter Jenaro Syed [facility] Start: 05-03-2023 End: 05-04-2023 ambulatory Yeyo ROWE Facility:[facility] Start: 05-03-2023 End: 05-03-2023 Patient encounter procedure Yeyo ROWE [facility] Start: 04-28-2023 End: 04-28-2023 ambulatory Jenaro Lynch Other [employer] Other Start: 04-28-2023 Telephone encounter Jenaro Lynch [facility] Start: 04-18-2023 End: 04-19-2023 ambulatory Yeyo ROWE Facility:[facility] Start: 04-18-2023 End: 04-18-2023 Patient encounter procedure Yeyo ROWE [facility] Start: 04-17-2023 ambulatory Yeyo R SLOEDAD Ley ty:[facility] Start: 04-13-2023 End: 04-14-2023 ambulatory Yeyo Viktoria ROWE Facility:[id number] Start: 04-11-2023 End: 04-11-2023 ambulatory Jenaro Lynch Other [employer] Other Start: 04-11-2023 Telephone encounter Jenaro Syed [facility] Start: 04-06-2023 End: 04-06-2023 ambulatory Jenaro Jettjoe Other [employer] Other Start: 04-06-2023 Encounter for other preprocedural examination Jenaro Lynch [facility] Start: 04-06-2023 Office outpatient vi sit 25 minutes Jenaro Syed [facility] Start: 03-28-2023 End: 03-28-2023 ambulatory Jenaro Jettjoe Other [employer] Other Start: 03-28-2023 Telephone encounter Jenaro Lynch [facility] Start: 03-20-2023 ambulatory Yeyo R SOLEDAD Ley ty:[facility] Start: 03-16-2023 ambulatory Yeyo R SOLEDAD Ley ty:[id number] Start: 03-15-2023 End: 03-15-2023 ambulatory Jenaro Lynch Other [employer] Other Start: 03-15-2023 Office outpatient vi sit 25 minutes Jenarogorge Fraustojoe [facility] Start: 03-10-2023 End: 03-10-2023 ambulatory Jenarogorge Lynch Other [employer] Other Start: 03-10-2023 Telephone encounter Jenarogorge Fraustojoe [facility] Start: 02-15-2023 Office outpatient vi sit 15 minutes Jenaro Lynch Work Phone: [facility] 250 DO Work Phone: Start: 02-15-2023 ambulatory Dolores Gaston Facility:[id number] Start: 02-14-2023 End: 02-15-2023 ambulatory Yeyo ROWE [place] [place]: 02-14-2023 End: 02-14-2023 Patient encounter procedure Yeyo Viktoria SOLEDAD [facility] Start: 02-08-2023 End: 02-09-2023 ambulatory Yeyo ROWE [place] Start: 02-08-2023 End: 02-08-2023 Patient encounter procedure Yeyo Viktoria SOLEDAD [facility] Start: 01-30-2023 End: 01-31-2023 ambulatory Yeyo ROWE Facility:[facility] Start: 01-30-2023 End: 01-30-2023 Patient encounter procedure Yeyo Blum ROWE [facility] Start: 01-25-[address] Jenaro Lynch Facility:[id number] Start: 01-17-2023 End: 01-17-2023 ambulatory Jenaro Lynch Other [facility] Other Start: 01-17-2023 Telephone encounter Jenaro Lynch [facility] Start: 01-11-2023 Office outpatient vi sit 25 minutes Jenaro Lynch Work Phone: [facility] 600 DO Work Phone: Start: 01-11-2023 ambulatory Dolores Feldman Facility:[id number] Start: 12-28-2022 End: 12-29-2022 ambulatory Yeyo ROWE Facility:[facility] Start: 12-28-2022 End: 12-28-2022 Patient encounter procedure Yeyo ROWE [facility] Start: 12-21-2022 ambulatory Yeyo ROWE Facili ty:[facility] [place] Start: 12-01-2022 End: 12-01-2022 ambulatory Jenaro Lynch Other [facility] Other Start: 12-01-2022 Office outpatient vi sit 25 minutes Jenaro Lynch [facility] Start: 11-30-2022 ambulatory Yeyo ROWE Facility :[facility] [place] Start: 11-23-2022 End: 11-24-2022 ambulatory Yeyo ROWE Facility:[facility] [place] Start: 11-23-2022 End: 11-23-2022 Patient encounter procedure Yeyo ROWE [facility] Start: 10-07-2022 End: 10-07-2022 ambulatory Jenaro Lynch Other [employer] Other Start: 10-07-2022 Telephone encounter Jenaro Lynch [facility] Start: 09-27-2022 End: 09-27-2022 ambulatory DO Jenaro Lynch Work Phone: [facility] Work Phone: Start: 09-27-2022 End: 09-27-2022 Patient encounter procedure DO Jenaro Lynch Work Phone: [facility] [place] Work Phone: Start: 09-21-2022 End: 09-21-2022 ambulatory Jenaro Lynch Other [employer] Other Start: 09-21-2022 Telephone encounter Jenaro Lynch [facility] Start: 09-14-2022 End: 09-14-2022 ambulatory Jenaro Syed Other [employer] Other Start: 09-14-2022 Telephone encounter Jenaro Syed [facility] Start: 09-02-2022 End: 09-02-2022 Patient encounter procedure DO Jenarogorge Lynch Work Phone: [facility] [place] Work Phone: Start: 08-25-2022 End: 08-25-2022 ambulatory Doris Barnes Other [employer] Other Start: 08-25-2022 Telephone encounter Doris Barnes [facility] Start: 08-22-2022 End: 08-22-2022 ambulatory Jenarogorge Lynch Other [employer] Other Start: 08-22-2022 Telephone encounter Jenaro Lynch [facility] Start: 08-05-2022 End: 08-05-2022 ambulatory Jenaro Lynch Other [employer] Other Start: 08-05-2022 Telephone encounter Jenaro Syed [facility] Start: 08-04-2022 End: 08-04-2022 ambulatory Jenaro Lynch Other [employer] Other Start: 08-04-2022 Telephone encounter Jenaro Lynch [facility] Start: 07-28-2022 End: 07-28-2022 ambulatory Jenaro Lynch Other [employer] Other Start: 07-28-2022 Telephone encounter Jenaro Lynch [facility] [employer] Start: 07-25-2022 End: 07-25-2022 ambulatory Jenaro Lynch Other [employer] Other Start: 07-25-2022 Nursing evaluation o f patient and report Jenaro Lynch [facility] Start: 07-19-2022 End: 07-19-2022 ambulatory Jenaro Lynch Other [employer] Other Start: 07-19-2022 Telephone encounter Jenaro Lynch [facility] Start: 07-15-2022 End: 07-15-2022 ambulatory Jenaro Lynch Other [employer] Other Start: 07-15-2022 Telephone encounter Jenaro Lynch [facility] Start: 07-13-2022 End: 07-13-2022 ambulatory Jenaro Lynch Other [employer] Other Start: 07-13-2022 Nursing evaluation o f patient and report Jenaro Lynch [facility] [place] Start: 07-12-[address] [facility] Start: 07-05-2022 End: 07-05-2022 ambulatory Jenaro Lynch Other [employer] Other Start: 07-05-2022 Telephone encounter Jenaro Lynch [facility] [place] Start: 07-05-2022 Rx Renewal Jenaro Lynch Work Phone: [facility] 250 DO Work Phone: Start: 07-04-2022 End: 07-04-2022 ambulatory Jenaro Lynch Other [employer] Other Start: 07-04-2022 Office outpatient vi sit 25 minutes Jenaro Lynch [facility] Start: 06-30-2022 End: 06-30-2022 ambulatory Jenaro Lynch Other [employer] Other Start: 06-30-2022 Telephone encounter Jenaro Lynch [facility] Start: 05-25-2022 End: 05-25-2022 ambulatory Jenaro Lynch Other [employer] Other Start: 05-25-2022 Telephone encounter Jenaro Lynch [facility] Start: 04-25-2022 End: 04-25-2022 ambulatory Jenaro Lynch Other [employer] Other Start: 04-25-2022 Telephone encounter Jenaro Lynch [facility] [place] Start: 04-19-2022 End: 04-19-2022 ambulatory Jenaro Lynch Other [employer] Other Start: 04-19-2022 Telephone encounter Jenaro Lynch [facility] Start: 03-22-2022 End: 03-22-2022 ambulatory Jenarogorge Lynch Other [employer] Other Start: 03-22-2022 Telephone encounter Jenaro Lynch [facility] Start: 03-01-2022 End: 03-01-2022 ambulatory Jenaro Lynch Other [employer] Other Start: 03-01-2022 Telephone encounter Jenaro Lynch [facility] Start: 02-18-2022 End: 02-18-2022 ambulatory Jenaro Lynch Other [employer] Other Start: 02-18-2022 Telephone encounter Jenaro Lynch [facility] Start: 02-15-2022 End: 02-15-2022 ambulatory Verona Whaley Other [employer] Other Start: 02-15-2022 Office outpatient vi sit 25 minutes Jenaro Lynch [facility] [place] Start: 02-15-2022 Telephone encounter Verona Whaley [facility] Start: 01-21-2022 End: 01-21-2022 ambulatory Jenaro Fraustojoe Other [employer] Other Start: 01-21-2022 Telephone encounter Jenaro Syed [facility] Start: 01-19-2022 End: 01-19-2022 ambulatory Jenaro Jettjoe Other [employer] Other Start: 01-19-2022 Telephone encounter Jenarogorge Lynch [facility] Start: 01-13-2022 End: 01-13-2022 ambulatory Jenaro Fraustojoe Other [employer] Other Start: 01-13-2022 Telephone encounter Jenaro Jettjoe [facility] Start: 12-23-2021 End: 12-23-2021 ambulatory Jenaro Fraustojoe Other [employer] Other Start: 12-23-2021 Telephone encounter Jenarogorge Lynch [facility] Start: 11-24-2021 End: 11-24-2021 ambulatory Jenaro Fraustojoe Other [employer] Other Start: 11-24-2021 Telephone encounter Jenaro Jettjoe [facility] Start: 11-03-2021 Rx Renewal Jenaro Lynch Work Phone: [facility] 250 DO Work Phone: Start: 10-26-2021 Office outpatient vi sit 25 minutes Jenaro Lynch Work Phone: [facility] 250 DO Work Phone: Start: 10-25-2021 End: 10-25-2021 ambulatory Jenaro Lynch Other [employer] Other Start: 10-25-2021 Telephone encounter Jenaro Lynch [facility] [place] Start: 10-19-2021 End: 10-19-2021 ambulatory Amina Fagan Other [employer] Other Start: 10-19-2021 Office outpatient vi sit 25 minutes Azkaur Kinseys [facility] Start: 10-18-2021 End: 10-18-2021 ambulatory Amina Kinseys Other [employer] Other Start: 10-18-2021 Telephone encounter Amina Kinseys [facility] Start: 10-12-2021 End: 10-13-2021 ambulatory DUARTE HENRY . Facility: Start: 10-08-2021 End: 10-08-2021 ambulatory Jenaro Lynch Other [employer] Other Start: 10-08-2021 [facility] Start: 09-22-2021 End: 09-22-2021 ambulatory Jenaro Lynch Other [employer] Other Start: 09-22-2021 Telephone encounter Jenaro Lynch [facility] [place] Start: 09-21-2021 End: 09-21-2021 ambulatory Jenaro Lynch Other [employer] Other Start: 09-21-2021 Telephone encounter Jenaro Lynch [facility] Start: 08-09-2021 End: 08-09-2021 ambulatory Jenaro Lynch Other [employer] Other Start: 08-09-2021 Telephone encounter Jenaro Lynch [facility] [place] Start: 08-02-2021 End: 08-02-2021 ambulatory Jenaro Lynch Other [employer] Other Start: 08-02-2021 Telephone encounter Jenaro Lynch [facility] Start: 07-27-2021 End: 07-27-2021 ambulatory Jenaro Lynch Other [employer] Other Start: 07-27-2021 Office outpatient vi sit 25 minutes Jenaro Lynch [facility] Start: 06-23-2021 End: 06-23-2021 ambulatory Jenaro Lynch Other [facility] Other Start: 06-23-2021 Telephone encounter Jenaro Lynch [facility] Start: 06-22-2021 Rx Renewal Jenaro P Jettjoe Work Phone: [facility] 250 DO Work Phone: Start: 05-03-2021 End: 05-03-2021 ambulatory Jenaro Lynch Other [facility] Other Start: 05-03-2021 Telephone encounter Jenaro Lynch [facility] Procedures Date Procedure Procedure Detail Performing Clinician Start: 10-24-2023 Ecg routine ecg w/le ast 12 lds w/i&r Raulito Inman MD Work Phone: Start: 10-02-2023 Acid Fast Smear DO Jose Angel Lynch Work Phone: Start: 10-02-2023 AFB Specimen Processing DO Jenaro Lynch Work Phone: Start: 10-02-2023 Microscopic observat ion [Identifier] in Unspecified specimen by Gram stain DO Jenaro Lynch Work Phone: Start: 10-02-2023 Tissue Culture DO Jenaro Lynch Work Phone: Start: 09-30-2023 Blood Culture 1 DO Jose Angel Lynch Work Phone: Start: 09-30-2023 Blood Culture 2 DO Jose Angel Lynch Work Phone: Start: 09-30-2023 Wound Culture DO Jenaro Lynch Work Phone: Start: 09-21-2023 Microscopic observat ion [Identifier] in Unspecified specimen by Gram stain DO Jenaro Lynch Work Phone: Start: 08-10-2023 Acid Fast Culture DO Livia Lynch Work Phone: Start: 08-10-2023 Acid Fast Smear DO Jose Angel Lynch Work Phone: Start: 08-10-2023 AFB Specimen Processing DO Jenaro Lynch Work Phone: Start: 08-10-2023 Microscopic observat ion [Identifier] in Unspecified specimen by Gram stain DO Jenaro Lynch Work Phone: Start: 08-10-2023 Tissue Culture DO Jenaro Lynch Work Phone: Start: 08-05-2023 Microscopic observat ion [Identifier] in Unspecified specimen by Gram stain DO Jenaro Lynch Work Phone: Start: 08-04-2023 Blood Culture 1 DO Jose Angel Lynch Work Phone: Start: 08-04-2023 Blood Culture 2 DO Jose Angel Lynch Work Phone: Start: 08-04-2023 Microscopic observat ion [Identifier] in Unspecified specimen by Gram stain DO Jenaro Lynch Work Phone: Start: 08-04-2023 Wound Culture DO Jenaro Lynch Work Phone: Start: 08-03-2023 Blood Culture 1 DO Phillipa n Syed Work Phone: Start: 08-03-2023 Blood Culture 2 DO Phillipa n Syed Work Phone: Start: 07-12-2023 Duplex scan of lower limb veins DO Jenaro Lynch Work Phone: Start: 07-12-2023 Duplex scan veins of upper limb DO Jenaro Lynch Work Phone: Start: 07-12-2023 Plain chest X-ray DO Livia Lynch Work Phone: Start: 04-13-2023 Transurethral prostatectomy Yeyo ROWE Start: 03-27-2023 History of percutane ous transluminal coronary angioplasty History of PTCA Raulito Inman MD Work Phone: Start: 02-14-2023 Transurethral cystoscopy Yeyo ROWE Start: 09-02-2022 MRI of head DO Jenaro Russell jose guadalupe Work Phone: Start: 06-05-2006 Total colonoscopy Jenaro Lynch Work Phone: Appendectomy Jenaro Lynch Work Phone: Appendectomy Yeyo ROWE Bilateral Carpal Timothy uli Surgery Yeyo ROWE Bilateral Eye Surgery 1 Patr leegloria ROWE Comment on above: bilateral cataracts with iol implants Cardiac catheterization Jose Angel Lynch Work Phone: cardiac stents Yeyo Diaz Cataract extraction and insertion of intraocular lens Yeyo ROWE Cataract surgery Jenaro diaz Work Phone: Colonoscopy Yeyo ROWE Decompression of med byron nerve Jenaro Lynch Work Phone: History of percutane ous transluminal coronary angioplasty History of PTCA Jenaro Lynch Work Phone: History of percutane ous transluminal coronary angioplasty History of PTCA Raulito Inman MD Work Phone: Procedure on back Jenaro ramirez Work Phone: Comment on above: nerve ablation; Procedure on back Yeyo DOSHI Scrotum and testicle operation Jenaro Lynch Work Phone: Plan of Treatment Date Care Activity Detail Author Start: 10-21-2024 End: 10-21-2024 Patient encounter procedure 10/21/2024 8:00 AM EDT Office Visit [facility] [address] [place] [address] Dolores Feldman, SIGNS AND DISPLAYS SALESPERSON-MONOTYPE MACHINIST [address] [place] [address] [facility] Start: 02-04-2024 Influenza vaccination Influenza Vaccine (Season Ended) [facility] Start: 11-15-2023 FUV, Provider: Raulito Inman, Status: Pen, Time: 2:40 PM FUV, Provider: Raulito Inman, Status: Pen, Time: 2:40 PM [facility] 250 DO Work Phone: Start: 10-02-2023 Acid Fast Culture Acid Fast Culture [facility] Start: 09-30-2023 Blood Culture 1 Blood Culture 1 [facility] Start: 09-30-2023 Blood Culture 2 Blood Culture 2 [facility] Start: 09-30-2023 Wound Culture Wound Culture [facility] Start: 09-21-2023 Abscess Culture Abscess Culture [facility] Start: 08-10-2023 Acid Fast Culture Acid Fast Culture [facility] Start: 08-05-2023 Wound Culture Wound Culture [facility] Start: 07-12-2023 Duplex scan of lower limb veins US venous duplex LE BI [facility] Start: 07-12-2023 US Lower extremity vein - bilateral [facility] Start: 07-12-2023 Duplex scan veins of upper limb US venous duplex UE LT [facility] Start: 07-12-2023 US Upper extremity vein - left [facility] Start: 02-15-2023 FUV, Provider: Dolores Velazquez, Status: Pen, Time: 10:00 AM FUV, Provider: Dolores Velazquez, Status: Pen, [facility]: 10:[facility] Work [facility]: Start: 02-03-2023 COVID-19 Vaccine ( season) COVID-19 Vaccine ( season) [facility] Start: 01-25-2023 STRESS NUC, Provider: [facility] NUCLEAR 01,[id number], Status: Pen, Time: 8:30 AM STRESS NUC, Provider: [facility] NUCLEAR 01,[id number], Status: Pen, Time: 8:30 AM [facility] 600 DO Work Phone: Start: 07-12-2022 FUV, Provider: Raulito Inman, Status: Pen, Time: 9:20 AM FUV, Provider: Raulito Inman, Status: Pen, Time: 9:20 AM [facility] 250 DO Work Phone: Start: 10-26-2021 FUV, Provider: Raulito Inman, Status: Pen, Time: 9:30 AM FUV, Provider: Raulito Inman, Status: Pen, Time: 9:30 AM [facility] 250 DO Work Phone: Start: 03-05-2019 Pneumococcal Vaccine: Pediatrics (0 to 5 Years) and At-Risk Patients (6 to 64 Years) (2 of 2 - PCV) Pneumococcal Vaccine: Pediatrics (0 to 5 Years) and At-Risk Patients (6 to 64 Years) (2 of 2 - PCV) [facility] Start: 2015 Zoster Vaccines (1 of 2) Zoster Vaccines (1 of 2) [facility] Start: 1987 DTaP/Tdap/Td Vaccines (1 - Tdap) DTaP/Tdap/Td Vaccines (1 - Tdap) [facility] Start: 1984 Hepatitis B Vaccines (1 of 3 - 19+ 3-dose series) Hepatitis B Vaccines (1 of 3 - 19+ 3-dose series) [facility] Start: 1984 Urine screening for protein Diabetes: Urine Protein Screening [facility] Start: 1983 Hepatitis C screening Hepatitis C Screening [facility] Start: 1975 Diabetic foot examination Diabetes: Foot Exam [facility] Start: 1975 Glaucoma screening Diabetes: Retinopathy Screening [facility] Start: 1966 MMR Vaccines (1 of 1 - Standard series) MMR Vaccines (1 of 1 - Standard series) [facility] Start: 1965 Hemoglobin A1c measurement Diabetes: Hemoglobin A1C [facility] Start: 1965 HIV screening HIV Screening [facility] Start: 1965 Lipid panel Lipid Panel [facility] Start: 1965 Screening for malignant neoplasm of colon [facility] Start: 1965 Yearly Adult Physical Yearly Adult Physical [facility] Patient Education Dependent Edema (DC) [facility] Work Phone: Patient referral [facility] Work Phone: Immunizations Immunization Date Immunization Notes Care Provider Sachin pettit 11-13-2020 Pfizer-BioNTech COVI D-19 Vacc 30 MCG/0.3ML Intramuscular Suspension Jenaro Lynch Work Phone: [facility] 10-23-2020 Pfizer-BioNTech COVI D-19 Vacc 30 MCG/0.3ML Intramuscular Suspension Jenaro Lynch Work Phone: [facility] 01-14-2019 influenza, seasonal, injectable Jenaro Lynch Other [facility] 01-14-2019 influenza virus vacc ine, unspecified formulation Yeyo ROWE [facility] 04-02-2018 influenza virus vacc ine, unspecified formulation Yeyo ROWE [facility] 04-02-2018 influenza, injectabl e, quadrivalent, preservative free DO Jenaro Lynch Work Phone: [facility] 03-05-2018 influenza virus vacc ine, unspecified formulation Jenaro Lynch Work Phone: [facility] 250 DO Work Phone: 03-05-2018 pneumococcal polysaccharide vaccine, 23 valent Jenaro Guerra Jettjoe [facility] Work Phone: 03-07-2016 influenza virus vacc ine, unspecified formulation Yeyo ROWE [facility] 03-07-2016 influenza, injectabl e, quadrivalent, preservative free Jenaro Lynch [facility] Work Phone: 02-22-2016 pneumococcal polysaccharide vaccine, 23 valent eJnaro Lynch Work Phone: [facility] Payers Date Payer Category Payer Unknown 2023 Self-pay [id number] 2022 Private Health Insurance [id number] 2022 Private Health Insurance [id number] 2022 Private Health Insurance [id number] 2022 Medicaid [id number] 1965 Unknown [id number] 2.16.84 0.1.155194.3.579.2.593 1965 Unknown [id number] 2.16.8 40.1.477088.3.579.2.1068 1965 Unknown [id number] 2.16. 840.1.340554.3.579.2.356 1965 Unknown [id number] 2.16. 840.1.697425.3.579.2.356 1965 Unknown [id number] 2.16. 840.1.956341.3.579.2.356 1965 Unknown [id number] 2.16.8 40.1.032097.3.579.2. 1965 Unknown [id number] 2.16.8 40.1.924967.3.579.2. 1965 Unknown [id number] 2.16.8 40.1.999397.3.579.2. 1965 Unknown [id number] 2.16.8 40.1.012243.3.579.2. 1965 Unknown [id number] 2.16.8 40.1.701499.3.579.2. 1965 Unknown [id number] 2.16.8 40.1.573863.3.579.2 1965 Unknown [id number] 2.16.8 40.1.421061.3.579.2 1965 Unknown [id number] 2.16.8 40.1.394455.3.579.2 1965 Unknown [id number] 2.16.8 40.1.472679.3.579.2 1965 Unknown [id number] 2.16.8 40.1.703290.3.579.2 1965 Unknown [id number] 2.16.8 40.1.142943.3.579.2. 1965 Unknown [id number] 2.16.8 40.1.975740.3.579.2. 1965 Unknown [id number] 2.16.8 40.1.353608.3.579.2. 1965 Unknown [id number] 2.16.8 40.1.316259.3.579.2 1965 Unknown [id number] 2.16.8 40.1.494572.3.579.2. 1965 Unknown [id number] 2.16.8 40.1.302887.3.579.2.727 1965 Unknown [id number] 2.16.8 40.1.780699.3.579.2.727 1965 Unknown [id number] 2.16.8 40.1.262013.3.579.2.1244 1965 Unknown [id number] 2.16.8 40.1.832557.3.579.2.727 1965 Unknown [id number] 2.16.8 40.1.732460.3.579.2.1286 1965 Unknown [id number] 2.16.8 40.1.799685.3.579.2.1286 1965 Unknown [id number] 2.16.8 40.1.331801.3.579.2.1286 1965 Unknown [id number] 2.16.8 40.1.189925.3.579.2.1286 1965 Unknown [id number] 2.16.8 40.1.820391.3.579.2.1286 1959 Unknown [id number] 2.1 6.840.1.175019.19 Unknown [id number] 2.16.8 40.1.259949.3.579.2.531 Unknown [id number] 2.16.8 40.1.550067.3.579.2.531 Unknown [id number] 2.16.8 40.1.398351.3.579.2.531 Unknown [id number] 2.16.8 40.1.928104.3.579.2.531 Unknown [id number] 2.16.8 40.1.298774.3.579.2.531 Social History Date Type Detail Facility Start: 08-08-2023 Caffeine use Caffeine use [employer] Other Comment on above: 2 cups coffee, 4-6 c ups tea daily, occaional soda; qauit 07/2020; Start: 08-08-2023 Sex Assigned At F [facility] Start: 07-14-2020 End: 07-12-2023 Tobacco smoking status NHIS Smoker (finding) [facility] Start: 1965 Sex Assigned At Male F [facility] Start: 11-23-2022 End: 10-23-2023 Tobacco smoking status Heavy tobacco smoker (finding) [facility] [place] Tobacco smoking status Never [facility] Start: 10-24-2023 Tobacco smoking stat us NHIS Ex-smoker [facility] End: 06-05-2020 History of tobacco use Cigarette Smoker [facility] Work Phone: Start: 10-24-2023 Tobacco use and exposure Smokeless tobacco non-user [facility] Work Phone: Start: 10-24-2023 Alcoholic beverage intake Lifetime non-drinker (finding) [facility] Work Phone: Start: 1965 Sex assigned at Not on file [facility] Work Phone: Start: 10-14-2023 End: 10-24-2023 Exposure to SARS-CoV-2 (event) Not sure [facility] Medical Equipment Procedure Code Equipment Code [...] bilia ry stentMultiple peripheral artery stent, bare-metal [id number] FDA Start: 02-09-2021 Functional Status Date Assessment Result Facility 10-23-2023 Functional Status No [facility] 06-02-2023 Functional Status N/A [facility] 02-14-2023 Functional Status N/A [facility] 01-30-2023 Functional Status N/A [facility] 11-23-2022 Functional Status N/A [facility] Clinical Notes 06-23-2021 to 10-24-2023 Raulito Inman MD - 10/24/2023 10:20 AM EDTPatient Instructions Note Date & Type Note Facility 10-24-2023 Note Sinus tachycardia Rightward axis Poor anterior R wave progression QTc 481 ms [facility] 10-24-2023 History of Present illness Narrative Subjective Solomon Feldman is a 58 y.o. male Chief Complaint Follow-up HPI Patient returns for follow-up of problems as noted. In the interim instead no cardiac signs symptoms or events. He has been undergoing a variety of lower extremity revascularization procedures also partial amputation. Throughout all that he had no cardiac complaints. We reviewed the chart. In 2018 he had an angiogram demonstrating patent stents and no disease in need of intervention. Last year he had a stress perfusion study that demonstrated no scar no ischemia and normal ejection fraction. Because of this we believe his coronary disease to be stable and he is probably a suitable candidate for any future and/or upcoming surgeries Lipid management and blood pressure management also are reviewed and felt to be adequate and appropriate. Vitals: 10/24/23 1056 BP: 134/86 BP Location: Left arm Patient Position: Sitting Pulse: 104 Height: 1.829 m (6') EKG done in office today Objective Physical Exam Constitutional: Appearance: Normal appearance. HENT: Nose: Nose normal. Neck: Vascular: No carotid bruit. Cardiovascular: Rate and Rhythm: Normal rate. Pulses: Normal pulses. Heart sounds: Normal heart sounds. Pulmonary: Effort: Pulmonary effort is normal. Abdominal: General: Bowel sounds are normal. Palpations: Abdomen is soft. Musculoskeletal: General: Normal range of motion. Cervical back: Normal range of motion. Right lower leg: No edema. Left lower leg: No edema. Skin: General: Skin is warm and dry. Neurological: General: No focal deficit present. Mental Status: He is alert. Psychiatric: Mood and Affect: Mood normal. Behavior: Behavior normal. Thought Content: Thought content normal. Judgment: Judgment normal. Allergies Penicillins and Latex Current Medications Current Outpatient Medications: acetaminophen (Tylenol) 500 mg tablet, Take by mouth every 8 hours if needed for mild pain (1 - 3)., Disp: , Rfl: Ajovy Autoinjector 225 mg/1.5 mL auto-injector, Inject 1 Pen (225 mg) under the skin every 30 (thirty) days., Disp: , Rfl: albuterol 90 mcg/actuation inhaler, Inhale 2 puffs 2 times a day., Disp: , Rfl: amitriptyline (Elavil) 100 mg tablet, Take 1 tablet (100 mg) by mouth once daily., Disp: , Rfl: ascorbic acid (Vitamin C) 500 mg tablet, Take 1 tablet (500 mg) by mouth once daily., Disp: , Rfl: aspirin 81 mg EC tablet, TAKE 1 TABLET BY MOUTH EVERY DAY, Disp: 90 tablet, Rfl: 3 atorvastatin (Lipitor) 80 mg tablet, Take 1 tablet (80 mg) by mouth once daily at bedtime., Disp: , Rfl: clopidogrel (Plavix) 75 mg tablet, Take 1 tablet (75 mg) by mouth once daily., Disp: , Rfl: DULoxetine (Cymbalta) [address] capsule, Take 1 capsule (60 mg) by mouth once daily. Do not crush or chew., Disp: , Rfl: empagliflozin (Jardiance) 10 mg, Take 1 tablet (10 mg) by mouth once daily., Disp: , Rfl: ferrous sulfate, 325 mg ferrous sulfate, tablet, Take 1 tablet by mouth once daily., Disp: , Rfl: glimepiride (Amaryl) 2 mg tablet, Take 1 tablet (2 mg) by mouth 2 times a day., Disp: , Rfl: insulin lispro (HumaLOG) 100 unit/mL injection, Inject under the skin. Take as directed per insulin instructions., Disp: , Rfl: isosorbide mononitrate ER (Imdur) 30 mg 24 hr tablet, TAKE 1 TABLET BY MOUTH EVERY DAY DIRECTED, Disp: 30 tablet, Rfl: 6 loperamide (Imodium A-D) 2 mg tablet, Take 1 tablet (2 mg) by mouth 4 times a day as needed for diarrhea., Disp: , Rfl: magnesium oxide (Mag-Ox) 400 mg tablet, 1 tablet (400 mg) 3 times a day., Disp: , Rfl: metFORMIN (Glucophage) 1,000 mg tablet, Take 1 tablet (1,000 mg) by mouth every 12 hours., Disp: , Rfl: nitroglycerin (Nitrostat) 0.4 mg SL tablet, Place under the tongue., Disp: , Rfl: omeprazole OTC (PriLOSEC OTC) 20 mg EC tablet, Take 2 tablets (40 mg) by mouth 2 times a day before meals. Do not crush, chew, or split., Disp: , Rfl: oxyCODONE-acetaminophen (Percocet) 5-325 mg tablet, Take 1 tablet by mouth every 4 hours if needed., Disp: , Rfl: pregabalin (Lyrica) 200 mg capsule, Take 1 capsule (200 mg) by mouth 3 times a day., Disp: , Rfl: rOPINIRole (Requip) 1 mg tablet, Take 1 tablet (1 mg) by mouth 3 times a day., Disp: , Rfl: SITagliptin phosphate (Januvia) 100 mg tablet, Take 1 tablet (100 mg) by mouth once daily., Disp: , Rfl: ubrogepant (Ubrelvy) 100 mg tablet tablet, Take 1 tablet (100 mg) by mouth if needed., Disp: , Rfl: furosemide (Lasix) 40 mg tablet, Take 1 tablet (40 mg) by mouth once daily., Disp: 90 tablet, Rfl: 1 Assessment/Plan 1. History of PTCA A durable result has been achieved with no recurrence of symptoms 2. Hyperlipidemia, unspecified hyperlipidemia type Review of treatment strategy demonstrates acceptable control 3. Encounter for pre-operative cardiovascular clearance Previously POC provided and he did well 4. Former smoker Congratulated on cessation Scribe Attestation By signing my name below, I, Migdalia Riley LPN attest that this documentation has been prepared under the direction and in the presence of Raulito Inman MD. Provider Attestation - Scribe documentation All medical record entries made by the Scribe were at my direction and personally dictated by me. I have reviewed the chart and agree that the record accurately reflects my personal performance of the history, physical exam, discussion and plan. documented in this encounter [facility] Work Phone: 10-24-2023 Instructions Rosemary Benavides LPN - 10/24/2023 10:20 AM EDT Please bring all medicines, vitamins, and herbal supplements with you when you come to the office. Prescriptions will not be filled unless you are compliant with your follow up appointments or have a follow up appointment scheduled as per instruction of your physician. Refills should be requested at the time of your visit. Patient is cleared for surgery from a cardiac standpoint documented in this encounter [facility] Work Phone: 07-13-2023 Hospital Discharge instructions Follow Up Care 07/13/2023 12:04:02 With:SOLEDAD HERRERA, Yeyo Blum, URL Address: [address] [place], [place] [id number]- When: Unknown [facility] 06-26-2023 Evaluation note Encounter Date Diagnosis Assessment Notes Jun, Hyperlipidemia (ICD-10 - E78.5) [facility] Other [id number] Hospital Discharge instructions Patient Education 06/02/2023 11:57:43 [...] urethra. Follow these instructions at home: Take zdpa-auk-fxwelnr and prescription medicines only as told by [...] provider. Document Revised: 12/08/2021 Document Reviewed: 12/08/2021 [employer] Patient Education 2022 [employer]. Follow Up Care 06/01/2023 14:05:36 With:SOLEDAD HERRERA, Yeyo Blum, URL Address: [address] [place], [place] [id number]- When: Unknown [facility] 12-12-2023 Evaluation note* Encounter Date Diagnosis Assessment Notes Treatment Notes Treatment Clinical Notes May, 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) [facility] Other 11-24-2023 Evaluation note* Encounter Date Diagnosis Assessment Notes Treatment Notes Treatment Clinical Notes Apr, Diabetic nephropathy (ICD-10 - E11.21) [facility] Other 11-07-2023 Evaluation note* Encounter Date Diagnosis Assessment Notes Treatment Notes Treatment Clinical Notes Apr, Left arm pain (ICD-10 - M79.602) [facility] Other 11-02-2023 Evaluation note* Encounter Date Diagnosis [...] and to have his surgery as scheduled. [facility] Other 10-24-2023 Evaluation note* Encounter Date Diagnosis Assessment Notes Treatment Notes Treatment Clinical Notes Mar, 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) Mar, Atherosclerotic hear t disease of [place] coronary artery without angina pectoris (ICD-10 - I25.10) [facility] Other 10-11-2023 Evaluation note* Encounter Date Diagnosis [...] No records available as of yet from [facility]. He was found to have [...] to continue to montior this at home. [facility] Other 10-09-2023 Note [id number] [facility] 02-14-2023 [id number]:127[facility]09-12-2023 Note [id number]:127[facility] 02-14-2023 Hospital Discharge instructions Patient [...] including vitamins, herbs, eye drops, creams, and ykca-fjn-kpasvlx medicines. Any problems you or family members [...] provider tells you to take them. Taking jryz-gff-aiuaapp medicines, vitamins, herbs, and supplements. Surgery safety [...] provider. Document Revised: 02/15/2022 Document Reviewed: 02/15/2022 [employer] Patient Education 2022 [employer]. [facility]08-28-2023 Hospital Discharge instructions Patient Education 01/30/2023 [...] including vitamins, herbs, eye drops, creams, and ynqc-vyt-ahxoxeh medicines. ?Whether you are or may be [...] provider. Document Revised: 02/02/2022 Document Reviewed: 12/25/2020 [employer] Patient Education 2022 [employer]. 01/30/2023 11:22:30 Cystoscopy Cystoscopy Cystoscopy is a [...] including vitamins, herbs, eye drops, creams, and bkew-ljy-kaxsacw medicines. Any problems you or family members [...] provider tells you to take them. Taking aabg-qdi-vugwwuq medicines, vitamins, herbs, and supplements. Tests You [...] Follow these instructions at home: Medicines Take wcje-srq-hcqtulr and prescription medicines only as told by [...] provider. Document Revised: 02/02/2022 Document Reviewed: 01/01/2021 [employer] Patient Education 2022 [employer]. Follow Up Care 11/23/2022 13:02:56 With:SOLEDAD HERRERA, Yeyo Blum, URL Address: [facility] [address] [place] [phone] When: Unknown Comments:sched cysto/uros [facility] 08-15-2023 Evaluation note* Encounter Date Diagnosis Assessment Notes Treatment Notes Treatment Clinical Notes Jan, Diabetic nephropathy (ICD-10 - E11.21) [facility] Other 06-29-2023 Evaluation note* Encounter Date Diagnosis [...] reviewed. Nov, Atherosclerotic hear t disease of [place] coronary artery without angina pectoris (ICD-10 - I25.10) Encouraged patient to follow with Cardiology as scheduled. [facility] Other 06-21-2023 Hospital Discharge instructions Patient Education [...] provider. Document Revised: 08/11/2021 Document Reviewed: 05/07/2021 [employer] Patient Education 2021 [employer]. Follow Up Care 09/14/2022 14:23:26 With:SOLEDAD HERRERA, Yeyo Blum, URL Address: [facility] [address], [place] [address]- When: Unknown [facility] 05-05-2023 Evaluation note* Encounter Date Diagnosis Assessment Notes Treatment Notes Treatment Clinical Notes October, Erectile dysfunction, unspecified erectile dysfunction type (ICD-10 - N52.9) [facility] Other 04-19-2023 Evaluation note* Encounter Date Diagnosis Assessment Notes Treatment Notes Treatment Clinical Notes Sep, 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) [facility] Other 04-12-2023 Evaluation note* Encounter Date Diagnosis Assessment Notes Treatment Notes Treatment Clinical Notes Sep, Atherosclerotic hear t disease of [place] coronary artery without angina pectoris (ICD-10 - I25.10) Sep, 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) [facility] Other 03-20-2023 Evaluation note* Encounter Date Diagnosis Assessment Notes Treatment Notes Treatment Clinical Notes Aug, Diabetic nephropathy (ICD-10 - E11.21) [facility] Other 03-03-2023 Evaluation note* Encounter Date Diagnosis Assessment Notes Treatment Notes Treatment Clinical Notes Aug, Pain in right leg (ICD-10 - M79.604) [facility] Other 03-02-2023 Evaluation note* Encounter Date Diagnosis Assessment Notes Treatment Notes Treatment Clinical Notes Aug, Pain in right leg (ICD-10 - M79.604) [facility] Other 02-20-2023 Evaluation note* Encounter Date Diagnosis Assessment Notes Treatment Notes Treatment Clinical Notes Jul, Intractable episodic headache, unspecified headache type (ICD-10 - R51.9) [facility] Other 02-14-2023 Evaluation note* Encounter Date Diagnosis Assessment Notes Treatment Notes Treatment Clinical Notes Jul, Acute intractable headache, unspecified headache type (ICD-10 - R51.9) [facility] Other 02-08-2023 Evaluation note* Encounter Date Diagnosis Assessment Notes Treatment Notes Treatment Clinical Notes Jul, Headache (ICD-10 - R51.9) [facility] Other 01-30-2023 Evaluation note* Encounter Date Diagnosis [...] medication and we will continue to monitor. [facility] Other 12-21-2022 Evaluation note* Encounter Date Diagnosis Assessment Notes Treatment Notes Treatment Clinical Notes May, Diabetic nephropathy (ICD-10 - E11.21) [facility] Other 11-21-2022 Evaluation note* Encounter Date Diagnosis Assessment Notes Treatment Notes Treatment Clinical Notes Apr, Diabetic nephropathy (ICD-10 - E11.21) [facility] Other 11-15-2022 Evaluation note* Encounter Date Diagnosis Assessment Notes Treatment Notes Treatment Clinical Notes Apr, Pain in right leg (ICD-10 - M79.604) [facility] Other 10-18-2022 Evaluation note* Encounter Date Diagnosis Assessment Notes Treatment Notes Treatment Clinical Notes Mar, Diabetic nephropathy (ICD-10 - E11.21) [facility] Other 09-13-2022 Evaluation note* Encounter Date Diagnosis Assessment Notes Treatment Notes Treatment Clinical Notes Feb, Hypertensive chronic kidney disease with stage 1 through stage 4 chronic kidney disease, or unspecified chronic kidney disease (ICD-10 - I12.9) [facility] Other 09-13-2022 Evaluation note* Encounter Date Diagnosis [...] scheduled. Feb, Atherosclerotic hear t disease of [place] coronary artery without angina pectoris (ICD-10 - [...] is to continue to follow with the pickle processor as scheduled. Feb, Pain in right leg [...] Noted upon review of blood work results. [facility] Other 08-19-2022 Evaluation note* Encounter Date Diagnosis Assessment Notes Treatment Notes Treatment Clinical Notes Jan, Diabetic nephropathy (ICD-10 - E11.21) [facility] Other 08-17-2022 Evaluation note* Encounter Date Diagnosis Assessment Notes Treatment Notes Treatment Clinical Notes Jan, Diabetic nephropathy (ICD-10 - E11.21) [facility] Other 07-21-2022 Evaluation note* Encounter Date Diagnosis Assessment Notes Treatment Notes Treatment Clinical Notes Dec, Diabetic nephropathy (ICD-10 - E11.21) [facility] Other 06-22-2022 Evaluation note* Encounter Date Diagnosis Assessment Notes Treatment Notes Treatment Clinical Notes Nov, Diabetic nephropathy (ICD-10 - E11.21) [facility] Other 05-23-2022 Evaluation note* Encounter Date Diagnosis Assessment Notes Treatment Notes Treatment Clinical Notes October, Diabetic nephropathy (ICD-10 - E11.21) [facility] Other 05-17-2022 Evaluation note* Encounter Date Diagnosis [...] E11.59) October, Atherosclerotic hear t disease of [place] coronary artery without angina pectoris (ICD-10 - I25.10) Patient follows with Dr. Inman. For this October, Other He did quit smoking since July 2020 [facility] Other 05-16-2022 Evaluation note* Encounter Date Diagnosis Assessment Notes Treatment Notes Treatment Clinical Notes October, Hypertensive chronic kidney disease with stage 1 through stage 4 chronic kidney disease, or unspecified chronic kidney disease (ICD-10 - I12.9) October, Stage 3 chronic kidney disease, unspecified whether stage 3a or 3b CKD (ICD-10 - N18.30) [facility] Other 05-06-2022 Evaluation note* Encounter Date Diagnosis Assessment Notes Treatment Notes Treatment Clinical Notes October, Pain in right leg (ICD-10 - M79.604) October, Pain in left leg (ICD-10 - M79.605) [facility] Other 04-20-2022 Evaluation note* Encounter Date Diagnosis Assessment Notes Treatment Notes Treatment Clinical Notes Sep, Diabetic nephropathy (ICD-10 - E11.21) [facility] Other 04-19-2022 Evaluation note* Encounter Date Diagnosis Assessment Notes Treatment Notes Treatment Clinical Notes Sep, Anxiety (ICD-10 - F41.9) Sep, Hypertensive chronic kidney disease with stage 1 through stage 4 chronic kidney disease, or unspecified chronic kidney disease (ICD-10 - I12.9) [facility] Other 03-07-2022 Evaluation note* Encounter Date Diagnosis Assessment Notes Treatment Notes Treatment Clinical Notes Aug, Anxiety (ICD-10 - F41.9) [facility] Other 02-22-2022 Evaluation note* Encounter Date Diagnosis [...] 12 pound weight loss from last visit. [facility] Other [id number] Evaluation note* Encounter Date Diagnosis Assessment Notes Treatment Notes Treatment Clinical Notes Jun, Diabetic nephropathy (ICD-10 - E11.21) [facility] Other Evaluation + Plan note Future Appointments Appointment Date:12/21/2022 11:00:00 AM Scheduled Provider: Location:[facility] Appointment Type:URO Nurse Visit Appointment Date:01/30/2023 10:30:00 AM Scheduled Provider:Yeyo ROWE MD Location:[facility] Appointment Type:URO Office Visit [facility] [employer] Evaluation + Plan note Future Appointments Appointment Date:01/30/2023 10:15:00 AM Scheduled Provider:Yeyo ROWE MD Location:[facility] Appointment Type:URO Office Visit [facility] Evaluation + Plan note Future Appointments Appointment Date:02/01/2023 10:00:00 AM Scheduled Provider: Location:[facility] Appointment Type:Urology CALL PAT FT Appointment Date:02/08/2023 09:00:00 AM Scheduled Provider: Location:[facility] Appointment Type:Urology FT Appointment Date:02/14/2023 09:15:00 AM Scheduled Provider: Location:[facility] Appointment Type:Urology FT [facility] evaluation + Plan note Future Appointments Appointment Date:02/14/2023 09:15:00 AM Scheduled Provider: Location:[facility] App[facility]ments Appointment Date:03/20/2023 08:45:00 AM Scheduled Provider: Location:[facility] Appointment Type:URO Nurse Visit Appointment Date:04/05/2023 08:00:00 AM Scheduled Provider:Yeyo ROWE MD Location:[facility] Future Appointments Appointment Date:05/03/2023 08:45:00 AM Scheduled Provider:Yeyo ROWE MD Location:[facility] Appointment Type:URO Office Visit [facility] Evaluation + Plan note Future Appointments Appointment Date:07/03/2023 10:15:00 AM Scheduled Provider:Yeyo ROWE MD Location:[facility] Appointment Type:URO Office Visit [facility] evaluation + Plan note Future Appointments Appointment Date:10/23/2023 09:30:00 AM Scheduled Provider:Padmini Montes MD [facility] noteNo InformationNort [employer] Other Evaluation noteNo assessment information available [facility] Work Phone: Evaluation note* Diagnosis History of PTCA Postsurgical percutaneous transluminal coronary angioplasty status Hyperlipidemia, unspecified hyperlipidemia type Encounter for pre-operative cardiovascular clearance Former smoker Personal history of tobacco use, presenting hazards to health documented in this encounter [facility] Work Phone: Hisiomg general Narrative - Reported* Type Description Date [...] hydrocele repair 08/2016 Surgical History cardiac cath [facility] 04/02/18 Surgical History Lt LE iliac DSA, angioplasty & stenting 09/27/2018 Surgical History Left Angiogram with one stent - Dr. Boss 07/2020 Hospitalization History Deep Depression, Anxiety; [facility] 11-11-10 Hospitalization History [facility] hypoxemia and hyper capnic respirtory failure 11/11/16 Hospitalization History chest pain [facility] 04/02/18 [facility] Other History of Present illness NarrativeReturns in [...] impact on blood pressure and diabetes were reviewed-[facility] 250 DO Work Phone: History of [...] medication regimen. He denies medication side effects. [facility] 600 DO Work Phone: History of [...] medication regimen. He denies medication side effects. [facility] 250 DO Work Phone: Hospital course Narrative No data available for this section [facility] So1 Hospital Discharge instructions No data available for this section [facility] So[facility] Progress note No data available for this section [facility] So1 Chief Complaint SOLOMON FELDMAN is being seen [...] Unknown Heart disease Unknown Reason for Referral Specialty Diagnoses / Procedures Referred By Brett mandujano Referred To Contact Diagnoses Encounter for pre-operative cardiovascular clearance Procedures ECG 12 Lead Raulito Inman MD [address] [place] [address] Referral ID Status Reason Start Date Expiration Date V isits Requested Visits Authorized [id number] Authorized 10/24/2023 10/23/2024 1 1 Specialty Diagnoses / Procedures Referred By Brett mandujano Referred To Contact Cardiology Diagnoses History of PTCA Procedures Follow Up In Cardiology Raulito Inman MD [address] [facility] [address] [place] [address] Referral ID Status Reason Start Date Expiration Date V isits Requested Visits Authorized [id number] Authorized 10/24/2023 10/23/2024 1 1 Reason CANCELLED consult and treat; previous patient of Dr. Sharpe last seen in 2020; persisting intractable headaches Diagnosis 1 Acute intractable he adache, unspecified headache type (R51.9) Referral Organization [facility] Dress Code Pana Referring Provider First Name Jenaro Referring Provider Last Name Syed Referring Provider Specialty Family Prac dale Referred Organization [facility] Referred Provider Lyssa Sharpe Referred Address [address] [place], [place],[address] Referred Provider Specialty Neurology Referral Priority Routine General Notes [facility] 023 10:19:08 AM >Received today. [facility] request us to fill out their form and attach to Referral and send it to them and they will call patient to schedule. Referral was sent P2P and fax insurance card since it would not let me attach to referral [facility] 07/28/2022 10:23:53 AM >Spoke with Marilynn hurley [facility] and patient has been scheduled and cancelled the appt for 07/26/22 [facility] 07/28/2022 10:27:39 AM >Telephone encounter was sent Reason 03/31/22 @ 2:45pm consult and treat Diagnosis 1 Type 2 diabetes bobby itus with circulatory disorder (E11.59) Referral Organization [facility]anu Referring Provider First Name Jenaro Referring Provider Last Name Syed Referring Provider Specialty Family Prac dale Referred Organization [facility] Referred Provider Doris Barnes Referred Address [address],[place], [place],[address] Referred Provider Specialty Nurse Jono calderon Referral Priority Routine Referral Appointment Date 2022-03-31 General Notes [facility] 022 02:28:10 PM >Received today and sent P2P [facility] 02/16/2022 07:50:21 AM >Patient has been scheduled Chief Complaint and Reason for Visit Chief Complaint r51.9 E11.59 E78.5 M10.9 Chief Complaint Bilat feet swollen, L arm swollen/tight Chief Complaint Bilat feet swollen, L arm swollen/tight Amb Documentation migraine Amb Documentation Unknown Chief Complaint Bilat feet swollen, L arm swollen/tight Amb Documentation migraine Amb Documentation Unknown Amb Documentation Unknown Chief Complaint Amb Documentation migraine Amb Documentation Unknown Amb Documentation Unknown Unknown Advance Directives No Advanced Directives Records Found Advance Directive Response Recorded Date/ Time Advance Directives No June 09, 2017 5:49pm Advance Directive Response Recorded Date/ Time Advance Directives No June 09, 2017 4:49pm Summary Purpose Additional Source Comments REASON FOR VISIT (unrecogniz ed section and content) Reason Comments Follow-up 9 months POC lower a ngio [facility] Specialty Diagnoses / Procedures Referred By Contac t Referred To Contact Diagnoses Encounter for pre-operative cardiovascular clearance Procedures ECG 12 Lead Raulito Inman MD [address] [facility] [address], [address] [address] Referral ID Status Reason Start Date Expiration Date V isits Requested Visits Authorized [id number] Authorized 10/24/2023 10/23/2024 1 1 Care Teams (unrecognized sec tion and content) Team Status: Active Member Role Status Dates Jenaro Lynch DO Primary Care Provider Active Team Status: Inactive Member Role Status Dates Jenaro Lynch DO Primary Care Provider Active Shana Mclaughlin PA-C Attending Provider Active Team Status: Inactive Member Role Status Dates Jenaro Lynch DO Primary Care Provider Active Jenaro Lynch DO [facility] Attending Provider Active Team Status: Inactive [...] Status: Active Member Role Status Dates Jenaro Kuns , DO Primary Care Provide r, Attending [...] Dates Jenaro Lynch , DO Primary Care Provider Active Sta rt: [...] September 21, 2023 End: September 21, 2023 Paula Elias DPM MS Attending Provider Active Start: September 21, 2023 End: September 21, 2023 Team Status: Active Member Role Status Dates Jenaro Lynch DO Primary Care Provide r, Attending Provider Active Start: September 21, 2023 Team Status: Active Member Role Status Dates Jenaro Lynch DO Primary Care Provider Active Sta rt: September 27, 2023 Tangela Zavala LPN Attending Provider Active St art: September 27, 2023 Team Status: Active Member Role Status Dates Jenaro Lynch DO Primary Care Provider Active Sta rt: September 30, 2023 Chandrika Castanon PA-C Attending Provider Active Start : September 30, 2023 Team Status: Active Member Role Status Dates Jenaro Lynch DO Primary Care Provider Active Sta rt: October 01, 2023 Truman Bryant MD Attending Provider Active Sta rt: October 01, 2023 Team Status: Active Member Role Status Dates Jenaro Lynch DO Primary Care Provider Active Sta rt: October 02, 2023 Truman Bryant MD Attending Provider Active Sta rt: October 02, 2023 Team Status: Inactive Member Role Status Dates Paula Elias DPM MS Attending Provider Active Start: October 02, 2023 End: October 02, 2023 Team Status: Active Member Role Status Dates Jenaro Lynch DO Primary Care Provider Active Sta rt: October 03, 2023 Truman Bryant MD Attending Provider Active Sta rt: October 03, 2023 Team Status: Active Member Role Status Dates Truman Bryant MD Attending Provider Active Sta rt: October 04, 2023 Team Status: Active Member Role Status Dates Truman Bryant MD Attending Provider Active Sta rt: October 05, 2023 Team Status: Inactive Member Role Status Dates Paula Elias DPM MS Attending Provider Active Start: October 05, 2023 End: October 05, 2023 Team Status: Active Member Role Status Dates Truman Bryant MD Attending Provider Active Sta rt: October 06, 2023 [employer] Cust[employer] Relationship Specialty Start Date End Date Jenaro Lynch DO PCP - General 04/17/19 Goals (unrecognized section and content) Goals may [...] DATE CREATED AUTHOR AUTHOR'S ORGANIZ ATION 01/27/2023 [facility] DATE CREATED AUTHOR AUTHOR'S ORGANIZ ATION 02/16/2023 [facility] DATE CREATED AUTHOR AUTHOR'S ORGANIZ ATION 02/16/2023 [employer] DATE CREATED AUTHOR AUTHOR'S ORGANIZ ATION 10/12/2023 [facility] DATE CREATED AUTHOR AUTHOR'S ORGANIZ ATION [facility] DATE CREATED AUTHOR AUTHOR'S ORGANIZ ATION [facility]20[facility] DATE CREATED AUTHOR AUTHOR'S ORGANIZ ATION 10/26/2023 [facility] DATE CREATED AUTHOR AUTHOR'S ORGANKAUR ATION 10/26/2023 [facility] DATE CREATED AUTHOR AUTHOR'S JOHN ATION 11/14/2023 [facility] FOR RECORDS PERTAINING TO PATIENTS WHO [...] BE BASED ON THE PRIMARY CLINICAL RECORDS. [employer] provides no warranty or guarantee of the accuracy or completeness of information in this document.
[2023-11-15 06:37] LABS: Basophils Absolute Auto 0.1 10^3/uL (0.0-0.1); Basophils Percent Auto 0.8 % (0.2-2.0); Eosinophils Absolute Auto 0.6 10^3/uL (0.0-0.7); Eosinophils Percent Auto 5.9 % (0.9-7.0); Hematocrit 27.6 % (42.0-54.0); Hemoglobin 8.5 g/dL (14.0-18.0); Immature Granulocytes Abs Auto 0.06 10^3/uL (0.00-0.03); Immature Granulocytes Pct Auto 0.6 % (0.0-0.5); Lymphocytes Absolute Auto 1.3 10^3/uL (1.2-3.8); Lymphocytes Percent Auto 14.1 % (20.5-60.0); Mean Corpuscular HGB Conc 30.8 g/dL (29.9-35.2); Mean Corpuscular Hemoglobin 24.9 pg (25.9-34.0); Mean Corpuscular Volume 80.9 fL (80.0-94.0); Mean Platelet Volume 10.8 fL (9.5-13.5); Monocytes Absolute Auto 1.1 10^3/uL (0.3-0.8); Monocytes Percent Auto 11.9 % (1.7-12.0); Neutrophils Absolute Auto 6.4 10^3/uL (1.4-6.5); Neutrophils Percent Auto 66.7 % (43.0-75.0); Platelet Count 338 10^3/uL (150-450); Red Blood Count 3.41 10^6/uL (4.70-6.10); Red Cell Distribution Width 20.6 % (11.0-15.0); White Blood Count 9.5 10^3/uL (4.0-11.0)
[2023-11-15 06:58] LABS: Lactate/Lactic Acid 1.4 mmol/L (0.4-2.0)
[2023-11-15 07:10] LABS: Alanine Aminotransferase 22 U/L (16-63); Albumin Globulin Ratio 0.5; Albumin Level 2.4 g/dL (3.4-5.0); Alkaline Phosphatase 194 U/L (46-116); Anion Gap 15.5; Aspartate Amino Transferase 25 U/L (15-37); BUN Creatinine Ratio 14.7; Bilirubin Total 0.9 mg/dL (0.2-1.0); Calcium 8.9 mg/dL (8.5-10.1); Carbon Dioxide 26.6 mmol/L (21.0-32.0); Chloride 97 mmol/L (98-107); Estimated GFR (African America 53 (>=60); Estimated GFR (Non-African Ame 44 (>=60); Globulin 4.7 g/dL; Glucose 226 mg/dL (74-106); Potassium 4.1 mmol/L (3.5-5.1); Sodium 135 mmol/L (136-145); Total Protein 7.1 g/dL (6.4-8.2)
--- NOTE | 2023-11-15 09:05 | ED_ITS ---
HPI HPI - General Adult General Chief complaint: Extremity Problem, Nontraumatic Stated complaint: RT FOOT BLEED Time Seen by Provider: 11/15/23 06:06 Source: patient Mode of arrival: ambulance Limitations: no limitations History of Present Illness HPI narrative: Received patient in signout from Dr. Nguyen. Awaiting podiatry input for the foot. Related Data Home Medications ?Medication ?Instructions ?Recorded ?Confirmed aspirin 81 mg tablet,delayed 81 mg PO DAILY 03/03/23 11/15/23 release atorvastatin 80 mg tablet 80 mg PO DAILY 03/03/23 11/15/23 clopidogrel 75 mg tablet 75 mg PO DAILY 03/03/23 11/15/23 empagliflozin 10 mg tablet 10 mg PO DAILY 03/03/23 11/15/23 (Jardiance) glimepiride 2 mg tablet 2 mg PO BID 03/03/23 11/15/23 metformin 1,000 mg tablet 1,000 mg PO BID 03/03/23 11/15/23 nitroglycerin 0.4 mg sublingual 0.4 mg sublingual Q5M PRN chest 03/03/23 11/15/23 tablet pain omeprazole 40 mg capsule,delayed 40 mg PO DAILY 03/03/23 11/15/23 release pregabalin 200 mg capsule 200 mg PO TID 03/03/23 11/15/23 sitagliptin phosphate 100 mg 100 mg PO DAILY 03/03/23 11/15/23 tablet (Januvia) tamsulosin 0.4 mg capsule (Flomax) 0.4 mg PO BID 03/03/23 10/01/23 amitriptyline 100 mg tablet 100 mg PO BEDTIME 03/04/23 11/15/23 albuterol sulfate 90 mcg/actuation 2 inh inhalation Q4H PRN shortness 03/30/23 11/15/23 aerosol inhaler (ProAir HFA) of breath or wheezing dulaglutide 1.5 mg/0.5 mL 1.5 mg subcut QWEEK 08/03/23 11/15/23 subcutaneous pen injector (Trulicity) fremanezumab-vfrm 225 mg/1.5 mL 225 mg subcut .QMonth 08/03/23 11/15/23 subcutaneous auto-injector (Ajovy) isosorbide mononitrate 30 mg 30 mg PO DAILY 08/03/23 11/15/23 tablet,extended release 24 hr rimegepant 75 mg disintegrating 75 mg PO DAILY 08/03/23 10/01/23 tablet (Nurtec ODT) budesonide-formoterol HFA 160 2 inh inhalation Q12H 09/18/23 11/15/23 mcg-4.5 mcg/actuation aerosol inhaler (Symbicort) ropinirole 1 mg tablet 1 mg PO TID 09/18/23 11/15/23 sildenafil 100 mg tablet 100 mg PO Q24H PRN sexual activity 09/18/23 10/01/23 tiotropium bromide 2.5 2 inh inhalation Q24H 09/18/23 11/15/23 mcg/actuation mist for inhalation (Spiriva Respimat) tizanidine 4 mg tablet 4 mg PO DAILY 09/18/23 11/15/23 Previous Rx's ?Medication ?Instructions ?Recorded amino acids-protein hydrolysate 15 1 ea PO BID #2,880 mL 10/06/23 gram-100 kcal/30 mL oral liquid pkt (Pro-Stat Sugar Free) arginine 7 gram-glutam 7 1 packet PO BID #60 ea 10/06/23 gram-CaHMB 1.5 [id number]-qm-min oral pwd pkt (Tenzin (with collagen)) ferrous sulfate 325 mg (65 mg 325 mg PO BID #60 tabs 10/06/23 iron) tablet fluconazole 100 mg tablet 200 mg (2 x 100 mg) PO QD #20 tabs 10/06/23 insulin aspart U-100 100 unit/mL 3 - 21 unit (0.03 - 0.21 mL) 10/06/23 (3 mL) subcutaneous pen (Novolog subcut ACHS #15 mL FlexPen U-100 Insulin aspart) levofloxacin 750 mg tablet 750 mg PO DAILY #30 tabs 10/06/23 magnesium oxide 400 mg (241.3 mg 400 mg PO TID #90 tabs 10/06/23 magnesium) tablet oxycodone 10 mg tablet 10 mg PO Q4H PRN pain #180 tabs 10/06/23 pregabalin 100 mg capsule 200 mg (2 x 100 mg) PO TID #180 10/06/23 caps Allergies Allergy/AdvReac Type Severity Reaction Status Date / Time Penicillins Allergy Severe Swelling Verified 11/15/23 06:06 of Lip/Tongue/Throat bee venom protein (honey bee) Allergy Swelling Verified 11/15/23 06:06 of Lip/Tongue/Throat latex Allergy Rash Verified 11/15/23 06:06 Opioid HPI Opioid Management Most Recent Opioid Data: Last Pain Scale 8 10/06/23 13:20 Last Pain Intensity 9 03/04/23 10:36 Last ORT Total Score 0 09/30/23 21:56 Last ORT Risk Category Low Risk 09/30/23 21:56 Ur Phencyclidine Scrn Negative (NEGATIVE) 03/03/23 17:24 Review of Systems ROS Narrative ROS negative unless otherwise stated above in HPI PFSH PFS Medical History (Updated 11/15/23 @ 06:47 by Fely Nguyen MD) Ulcer of right foot with necrosis of bone ?L97.514 - Non-pressure chronic ulcer of other part of right foot with necrosis of bone (ICD-10) Acute osteomyelitis of right foot ?M86.171 - Other acute osteomyelitis, right ankle and foot (ICD-10) Hypocalcemia ?E83.51 - Hypocalcemia (ICD-10) Hypomagnesemia ?E83.42 - Hypomagnesemia (ICD-10) Sepsis ?A41.9 - Sepsis, unspecified organism (ICD-10) Wound of foot ?S91.309A - Unspecified open wound, unspecified foot, initial encounter (ICD- 10) Abscess of right foot ?L02.611 - Cutaneous abscess of right foot (ICD-10) Chronic ulcer of right foot ?L97.519 - Non-pressure chronic ulcer of other part of right foot with unspecified severity (ICD-10) 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 (ICD-10) Diabetic infection of right foot ?E11.628 - Type 2 diabetes mellitus with other skin complications (ICD-10) ?L08.9 - Local infection of the skin and subcutaneous tissue, unspecified (ICD-10) Puncture wound of right foot ?S91.331A - Puncture wound without foreign body, right foot, initial encounter (ICD-10) Cellulitis of foot, right ?L03.115 - Cellulitis of right lower limb (ICD-10) ROEL (acute kidney injury) ?N17.9 - Acute kidney failure, unspecified (ICD-10) Sepsis ?A41.9 - Sepsis, unspecified organism (ICD-10) CHF (congestive heart failure) ?I50.9 - Heart failure, unspecified (ICD-10) Migraine headache ?G43.909 - Migraine, unspecified, not intractable, without status migrainosus (ICD-10) Tobacco abuse ?Z72.0 - Tobacco use (ICD-10) DM2 (diabetes mellitus, type 2) ?E11.9 - Type 2 diabetes mellitus without complications (ICD-10) Carpal tunnel syndrome ?G56.00 - Carpal tunnel syndrome, unspecified upper limb (ICD-10) Back pain ?M54.9 - Dorsalgia, unspecified (ICD-10) Arthritis ?M19.90 - Unspecified osteoarthritis, unspecified site (ICD-10) Restless leg ?G25.81 - Restless legs syndrome (ICD-10) GERD (gastroesophageal reflux disease) ?K21.9 - Gastro-esophageal reflux disease without esophagitis (ICD-10) High cholesterol ?E78.00 - Pure hypercholesterolemia, unspecified (ICD-10) Myocardial infarction ?I21.9 - Acute myocardial infarction, unspecified (ICD-10) Coronary artery disease ?I25.10 - Atherosclerotic heart disease of [place] coronary artery without angina pectoris (ICD-10) BPH with obstruction/lower urinary tract symptoms ?N40.1 - Benign prostatic hyperplasia with lower urinary tract symptoms (ICD- 10) ?N13.8 - Other obstructive and reflux uropathy (ICD-10) Dementia ?F03.90 - Unspecified dementia, unspecified severity, without behavioral disturbance, psychotic disturbance, mood disturbance, and anxiety (ICD-10) CKD stage 4 due to type 2 diabetes mellitus ?E11.22 - Type 2 diabetes mellitus with diabetic chronic kidney disease (ICD- 10) ?N18.4 - Chronic kidney disease, stage 4 (severe) (ICD-10) Hyperlipidemia ?E78.5 - Hyperlipidemia, unspecified (ICD-10) Polyp of prostate with urinary obstruction ?N40.1 - Benign prostatic hyperplasia with lower urinary tract symptoms (ICD- 10) ?N13.8 - Other obstructive and reflux uropathy (ICD-10) Femoral artery stenosis ?I70.209 - Unspecified atherosclerosis of [place] arteries of extremities, unspecified extremity (ICD-10) Glaucoma ?H40.9 - Unspecified glaucoma (ICD-10) Carpal tunnel syndrome, bilateral ?G56.03 - Carpal tunnel syndrome, bilateral upper limbs (ICD-10) Gout ?M10.9 - Gout, unspecified (ICD-10) COPD (chronic obstructive pulmonary disease) ?J44.9 - Chronic obstructive pulmonary disease, unspecified (ICD-10) Neuropathy ?G62.9 - Polyneuropathy, unspecified (ICD-10) Chronic kidney disease ?N18.9 - Chronic kidney disease, unspecified (ICD-10) Hypertension ?I10 - Essential (primary) hypertension (ICD-10) Weakness ?R53.1 - Weakness (ICD-10) Surgical History (Updated 09/15/23 @ 10:12 by Shana George NP) H/O foot surgery (08/10/23) ?Z98.890 - Other specified postprocedural states (ICD-10) S/P TURP (04/13/23) ?Z90.79 - Acquired absence of other genital organ(s) (ICD-10) H/O foot surgery (08/05/23) ?Z98.890 - Other specified postprocedural states (ICD-10) History of heart artery stent ?Z95.5 - Presence of coronary angioplasty implant and graft (ICD-10) History of spinal surgery ?Z98.890 - Other specified postprocedural states (ICD-10) History of colonoscopy ?Z98.890 - Other specified postprocedural states (ICD-10) History of carpal tunnel release ?Z98.890 - Other specified postprocedural states (ICD-10) History of cataract extraction ?Z98.49 - Cataract extraction status, unspecified eye (ICD-10) History of appendectomy ?Z90.49 - Acquired absence of other specified parts of digestive tract (ICD- 10) History of heart artery stent ?Z95.5 - Presence of coronary angioplasty implant and graft (ICD-10) Family History (Updated 03/03/23 @ 18:46 by Darling Sharma RN) Mother Family history of CHF (congestive heart failure) Family history of diabetes mellitus Family history of hypertension Grandfather Family history of CHF (congestive heart failure) Family history of diabetes mellitus Family history of hypertension Family history of myocardial infarction Grandmother Family history of hypertension Social History (Updated 08/10/23 @ 09:23 by Mariely Fox) Within the past year, how often did you have a drink containing alcohol: never Score interpretation: A score less than 4 is consistent with normal alcohol consumption. Smoking status: Current every day smoker What tobacco products do you use: cigarettes Cigarettes per day: 20 Years smoked: 42 Smoking pack-years: 42.00 Non-prescribed substance use: denies use Previous occupational history: DISABLED Highest level of school completed/degree received: don't know Gender Identity: male Exam Narrative Exam Narrative: See Dr. Hussein note for exam Constitutional Vital Signs, click to edit/add: Last Vital Signs Temp 97.8 F 11/15/23 06:02 Pulse 86 11/15/23 06:02 Resp 16 11/15/23 06:02 BP 116/70 11/15/23 06:02 Pulse Ox 99 11/15/23 06:02 O2 Del Method Room Air 11/15/23 06:02 Course Vital Signs Vital signs: Vital Signs Temperature 97.8 F 11/15/23 06:02 Pulse Rate 86 11/15/23 06:02 Respiratory Rate 16 11/15/23 06:02 Blood Pressure 116/70 11/15/23 06:02 Pulse Oximetry 99 11/15/23 06:02 Oxygen Delivery Method Room Air 11/15/23 06:02 Temperature 97.8 F 11/15/23 06:02 Pulse Rate 86 11/15/23 06:02 Respiratory Rate 16 11/15/23 06:02 Blood Pressure 116/70 11/15/23 06:02 Pulse Oximetry 99 11/15/23 06:02 Oxygen Delivery Method Room Air 11/15/23 06:02 Medical Decision Making MDM Narrative Medical decision making narrative: Podiatry came to ER to assess the patient. He dressed the wound and states olivia ent is okay for discharge home. They will be seeing him in the office as scheduled. Patient comfortable with care plan for home. Differential Diagnosis Differential Diagnosis: Necrotic foot, cellulitis, osteomyelitis Medical Records Medical records reviewed: Yes I reviewed the patient's medical records Lab Data Lab results reviewed: Yes I reviewed the patient's lab results Labs: Lab Results 11/15/23 Range/Units 06:25 WBC 9.5 (4.0-11.0) 10^3/uL RBC 3.41 L (4.70-6.10) 10^6/uL Hgb 8.5 L (14.0-18.0) g/dL Hct 27.6 L (42.0-54.0) % MCV 80.9 (80.0-94.0) fL MCH 24.9 L (25.9-34.0) pg MCHC 30.8 (29.9-35.2) g/dL RDW 20.6 H (11.0-15.0) % Plt Count 338 (150-450) 10^3/uL MPV 10.8 (9.5-13.5) fL Neut % (Auto) 66.7 (43.0-75.0) % Lymph % (Auto) 14.1 L (20.5-60.0) % Mayes % (Auto) 11.9 (1.7-12.0) % Eos % (Auto) 5.9 (0.9-7.0) % Baso % (Auto) 0.8 (0.2-2.0) % Neut # (Auto) 6.4 (1.4-6.5) 10^3/uL Lymph # (Auto) 1.3 (1.2-3.8) 10^3/uL Mayes # (Auto) 1.1 H (0.3-0.8) 10^3/uL Eos # (Auto) 0.6 (0.0-0.7) 10^3/uL Baso # (Auto) 0.1 (0.0-0.1) 10^3/uL Abs Immat Gran (auto) 0.06 H (0.00-0.03) 10^3/uL Imm/Tot Granulo (auto) 0.6 H (0.0-0.5) % Sodium 135 L (136-145) mmol/L Potassium 4.1 (3.5-5.1) mmol/L Chloride 97 L (98-107) mmol/L Carbon Dioxide 26.6 (21.0-32.0) mmol/L Anion Gap 15.5 BUN 24.0 H (7.0-18.0) mg/dL Creatinine 1.63 H (0.70-1.30) mg/dL Est GFR ( Amer) 53 L (>=60) Est GFR (Non-Af Amer) 44 L (>=60) BUN/Creatinine Ratio 14.7 Glucose 226 H (74-106) mg/dL Lactate 1.4 (0.4-2.0) mmol/L Calcium 8.9 (8.5-10.1) mg/dL Total Bilirubin 0.9 (0.2-1.0) mg/dL AST 25 (15-37) U/L ALT 22 (16-63) U/L Alkaline Phosphatase 194 H (46-116) U/L Total Protein 7.1 (6.4-8.2) g/dL Albumin 2.4 L (3.4-5.0) g/dL Globulin 4.7 g/dL Albumin/Globulin Ratio 0.5 Imaging Data Chest x-ray: Radiologist's impression: ITS Impressions Foot X-Ray 11/15/23 06:17 IMPRESSION: 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 Electronically authenticated by: EVAN HODGES Date: 11/15/2023 07:06 Discharge Plan Discharge Stand Alone Forms: Portal Instructions Chief Complaint: Extremity Problem, Nontraumatic Clinical Impression: Post-op bleeding Patient Disposition: Home, Self-Care Time of Disposition Decision: 09:08 Mode of Transportation: Private Vehicle Prescriptions / Home Meds: No Action albuterol sulfate [ProAir HFA] 90 mcg/actuation HFA aerosol inhaler 2 inh inhalation Q4H PRN (Reason: shortness of breath or wheezing) budesonide-formoterol [Symbicort] 160-4.5 mcg/actuation HFA aerosol inhaler 2 inh INHALATION Q12H ropinirole 1 mg tablet 1 mg PO TID sildenafil 100 mg tablet 100 mg PO Q24H PRN (Reason: sexual activity) Spiriva Respimat 2.5 mcg/actuation mist 2 inh INHALATION Q24H tizanidine 4 mg tablet 4 mg PO DAILY aspirin 81 mg tablet,delayed release (DR/EC) 81 mg PO DAILY atorvastatin 80 mg tablet 80 mg PO DAILY clopidogrel 75 mg tablet 75 mg PO DAILY Jardiance 10 mg tablet 10 mg PO DAILY glimepiride 2 mg tablet 2 mg PO BID metformin 1,000 mg tablet 1,000 mg PO BID nitroglycerin 0.4 mg tablet, sublingual 0.4 mg sublingual Q5M PRN (Reason: chest pain) omeprazole 40 mg capsule,delayed release(DR/EC) 40 mg PO DAILY pregabalin 200 mg capsule 200 mg PO TID Januvia 100 mg tablet 100 mg PO DAILY tamsulosin [Flomax] 0.4 mg capsule 0.4 mg PO BID amitriptyline 100 mg tablet 100 mg PO BEDTIME Trulicity 1.5 mg/0.5 mL pen injector 1.5 mg SUBCUT QWEEK Ajovy Autoinjector 225 mg/1.5 mL auto-injector 225 mg SUBCUT .QMonth isosorbide mononitrate 30 mg tablet extended release 24 hr 30 mg PO DAILY Nurtec ODT 75 mg tablet,disintegrating 75 mg PO DAILY fluconazole 100 mg Tablet 200 mg PO QD Qty: 20 0RF magnesium oxide 400 mg (241.3 mg magnesium) Tablet 400 mg PO TID Qty: 90 11RF ferrous sulfate 325 mg (65 mg iron) Tablet 325 mg PO BID Qty: 60 11RF insulin aspart U-100 [Novolog FlexPen U-100 Insulin] 100 unit/mL (3 mL) Insulin Pen 3 - 21 unit subcut ACHS Qty: 15 11RF pregabalin 100 mg Capsule 200 mg PO TID Qty: 180 2RF Hold Instructions: Order Change Pro-Stat Sugar Free 15 gram- 100 kcal/30 mL Liquid In Packet 1 ea PO BID Qty: 2880 12RF Tenzin (with collagen) 7-7-1.5 gram Powder In Packet 1 packet PO BID Qty: 60 11RF levofloxacin 750 mg tablet 750 mg PO DAILY Qty: 30 0RF oxycodone 10 mg tablet 10 mg PO Q4H PRN (Reason: pain) Qty: 180 0RF Print Language: Citizen [place] Instructions: Transmetatarsal Amputation (DC) Referrals: Jenaro Valadez DO [Primary Care Provider] - 1 week
[2023-11-15 10:00] VITALS: BP 127/84; PULSE 89; O2SAT 100
== END 2023-11-15 10:00 | disposition home or self-care (01) ==
PROVIDERS: Emergency Medicine; Emergency Provider Emergency Medicine; PCP Family Medicine
DX: I97.618 Postprocedural hemorrhage of a circulatory system organ or structure following other circulatory system procedure (principal); F17.210 Nicotine dependence, cigarettes, uncomplicated; E11.51 Type 2 diabetes mellitus with diabetic peripheral angiopathy without gangrene; Z89.431 Acquired absence of right foot
CPT/HCPCS: 36415; 73630; 80053; 83605; 85025; 87040; 99284

== ENCOUNTER 2023-11-26 14:40 | Emergency (ER) | payer OTHER, SELFPAY ==
[2023-11-26] VITALS (10 sets, daily range): BP systolic 98–129; BP diastolic 56–70; PULSE 72–90; TEMP 36.7–37.1; O2SAT 99–100; BMI 28.2
--- OUTSIDE RECORDS SUMMARY | 2023-11-26 14:46 | XMS_ITS | CCD ---
Author Organization [facility] Inform ion [facility] Care Team Providers Care Mark Up Designer Name Role Phone Jenaro Lynch Unavailable Unavailable Unavailable Jenaro Lynch Unavailable Norris Faganjuan Unavailable Judd Verona Unavailable Cameron Akin Unavailable DO Jenaro Lynch Primary Care Provider [phone] JERARDO Mclaughlin Attending Provider [phone] DO Jenaro Lynch Attending Provider ELAINE ., DUARTE Attending Unavailable ELAINE .DUARTE Admitting Unavailable DR LYSSA PERDOMO Consulting Unavailable SYED, DR EASON Primary Care Unavailable DUARTE MÁRQUEZ Consulting Unavailable JENARO LYNCH Primary Care Physician Syed, Dr. Jenaro Orona Primary Care UnavailDolorse Vaughn Attending Unavailable Dolores Feldman Attending Unavailable Dolores Feldman Referring Unavailable Syed, Dr. Jenaro Orona Primary Care UnavailDolores Vaughn Attending Unavailable Dolores Feldman Referring Unavailable Syed, Dr. Jenaro Orona Primary Care Unavailkita Inman II, Dr. Raulito Orona Referring Unavailable Syed, Dr. Jenaro Orona Primary Care Unavailkita Inman II, Dr. Raulito Orona Attending Unavailable DO Jenaro Lynch Primary Care Provider MD Nancy Wilson Emergency Provider DO Jenaro Lynch Primary Care Provider MD Nancy Wilson Emergency Provider JERARDO Mclaughlin Attending Provider [phone] JERARDO Mclaughlin Referring Provider [phone] Curt, LINDSEY Hooker Attending Provider Curt, Paula Hooker Attending Unavailable Highlbhavin, Paula Hooker Admitting Unavailable Highlbhavin, Paula Hooker Attending Unavailable Highlbhavin, Paula Hooker Admitting Unavailable KunJenaro diaz Primary Care Unavailable Shana Mclaughlin Referring Unavailable Arnoldo, hSana Attending Unavailable LowShana serrano Admitting Unavailable Kuns, Jenaro Primary Care Unavailable Wilson, Nancy Attending Unavailable Wilson, Nancy Admitting Unavailable Kuns, Jenaro Primary Care Unavailable Highlbhavin, Paula Hooker Attending Unavailable Highlbhavin, Paula Hooker Admitting Unavailable Kuns, DO Eason Primary Care Provider Jenaro Lynch DO Primary Care Provider [phone] RAULITO INMAN Attending Unavailable KUNSJENARO Primary Care Unavailable ROWE, Yeyo Blum Attending Unavailable Simon, Mohamed F. Referring Unavailable Siomn, Mohamed F. Attending Unavailable Simon, Mohamed F. Admitting Unavailable SIMON, MOHAMED F Attending Unavailable HIGHLANDER, PAULA Hooker Referring Unavailable SIMON, MOHAMED F Admitting Unavailable SIMON, MOHAMED F Attending Unavailable ONLY), [facility] (INPATIENT Consult ing Unavailable DERISO, ROSIE C Referring Unavailable BROOKENSMAAME Referring Unavailable DERISO, ROSIE C Referring Unavailable ROWE, Yeyo R Attending Unavailable ROWE, Yeyo R Attending Unavailable ROWE, Yeyo R Attending Unavailable ROWE, Yeyo R Attending Unavailable ROWE, Yeyo R Attending Unavailable Simon, Mohamed F. Admitting Unavailable Simon, Mohamed F. Attending Unavailable NONE, XXXX Referring Unavailable ROWE, Yeyo R Attending Unavailable ROWE, Yeyo R Attending Unavailable ROWE, Yeyo R Attending Unavailable ROWE, Yeyo R Admitting Unavailable ROWE, Yeyo R Attending Unavailable ROWE, Yeyo R Referring Unavailable ROWE, Yeyo R Admitting Unavailable ROWE, Yeyo R Attending Unavailable ROWE, Yeyo R Referring Unavailable Simon, Mohamed F. Admitting Unavailable Simon, Mohamed F. Attending Unavailable Simon, Mohamed F. Referring Unavailable ROWE, Yeyo R Attending Unavailable ROWE, Yeyo R Attending Unavailable ROWE, Yeyo R Referring Unavailable ROWE, Yeyo R Attending Unavailable ROWE, Yeyo R Attending Unavailable ROWE, Yeyo R Attending Unavailable Allergies Allergy Classification Reported Allergen(s) Allergy Type Date of Onset Reaction(s) Facility (20 sources) natural latex rubber; 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: [LATEX] Allergy to substance (finding) 03-27-20 23 Itching (finding), Eruption of skin (disorder) [facility] (20 sources) Penicillins; 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: [Penicillins] Allergy to drug (finding) 11-05-19 14 Anaphylactoid reaction (disorder) [facility] (20 sources) Acetaminophen / oxyCODONE Drug Allergy vomiting [facility] [employer] Other (20 sources) tamsulosin; 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: [TAMSULOSIN] Drug Allergy 07-14-19 21 hives [facility] (20 sources) PENICIILIN Propensity to adverse reactions SWELLING OF AIRWAY [facility] [employer] Other (8 sources) Acetaminophen; 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: [acetaminophen] Drug Allergy 07-14-19 21 Vomiting [facility] (9 sources) oxyCODONE; 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: [Oxycodone] Drug Allergy 02-08-20 17 Vomiting [facility] (1 source) Penicillins Drug allergy (disorder) 09-23-19 14 [facility] Rep[facility] (16 sources) Penicillin G; 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: [penicillin G benzathine] Drug Allergy [facility] (8 sources) Penicillin Drug Allergy anaphylaxis [facility] [employer] Other (1 source) Penicillins Drug allergy (disorder) 07-31-19 24 [facility] (1 source) tamsulosin Drug Allergy 07-31-19 24 [facility] (1 source) Latex Allergy to substance 03-27-20 23 Unknown [facility] (1 source) Penicillins Drug Allergy 03-27-20 23 Anaphylaxis [facility] Work Phone: (3 sources) Isosorbide; 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: [ISOSORBIDE MONONITRATE] Drug Allergy [...] 1:00am July 14, 2020 12:39pm Start: 10-10-2014 [place] 325 mg-5 mg oral tablet 1 tab(s), [...] BID, # 60 cap(s), Refills(s) 11, Pharmacy: [facility]/pharmacy #[id number], 182, cm, 06/02/23 11:00:00 EST, Height/Length Dosing, 94, kg, 06/02/23 11:00:00 EST, Weight Dosing Start Date: 06/26/23 Status: Ordered Start: 02-14-2023 take 1 capsule by mo uth twice daily tamsulosin 0.4 mg Cap 0.4 mg = 1 cap(s), Oral, BID, # 60 cap(s), Refills(s) 3, Pharmacy: [facility]/pharmacy #[id number], 182, cm, 02/14/23 8:58:00 EDT, Height/Length Dosing, 94, kg, 01/30/23 10:24:00 EDT, Weight Dosing Start Date: 02/14/23 Status: Ordered take 1 capsule by [facility] once daily Tamsulosin HCl - 0.4 MG Oral Capsule TAKE 1 CAPSULE Daily Quantity: 0 Refills: 0 Ordered: 15-Feb-2023 DO Active [facility] (20 sources) Start: 01-27-2014 Start: 01-27-2014 [facility] as d irected Use as directed. Jan, Active Tiotropium [place] (Spiriva With Handihaler) 18 mcg capsule, w/inhalation device (4 sources) Start: 07-12-2023 take 1 capsule by inhalation once daily Tiotropium [place] (Spiriva With Handihaler) 18 mcg capsule, w/inhalation device Active 1 CAP INHALATION Daily July 12, 2023 1:00am puncture 1 cap using device; one dose = 2 inhalations Start: 07-12-2023 take 1 capsule by in halation once daily Tiotropium [place] (Spiriva With Handihaler) 18 mcg capsule, w/inhalation [...] Ordered Start: 07-04-2022 take 1 tablet by [facility] every twelve hours tiZANidine HCl 4 MG 1 tablet as needed Orally Twice a day Jun, Active take 2 tablets by [facility] at bedtime tiZANidine HCl - 4 [...] procedure, # 2 cap(s), Refills(s) 0, Pharmacy: [facility]/pharmacy #[id number], 182, cm, 01/30/23 10:24:00 [...] take 1 tablet by mouth once daily Olmesartan-[place] chlorothiazide (Benicar Hct) 40-12.5 mg Tablet Discontinued [...] limb due to atherosclerosis; 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: [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 Residual codes; unclassified (2 sources) Other specified postprocedural states; 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: [Other specified [...] Test Name Value Interpretation Reference Range Facility Progress Note-Physicianon Progress Note-Physician [id number]#[id number] Normal [facility] BASIC METABOLIC PANLon 11-13 Anion gap [Moles/Vol] 10 mmol/L Normal 5-15 [facility] Comment on above: Performed By: #### C KENDALL CANALES, , 2776-1 ####[facility] ([id number])[address], [place] [address] Calcium [Mass/Vol] 8.8 mg/dL Normal 8.5-10.5 [facility] Comment on above: Performed By: #### KENDALL AHUJA, , 2776-1 ####[facility] ([id number])[address], [address], [place] [address] Chloride [Moles/Vol] 99 mmol/L Normal 98-109 [facility] Comment on above: Performed By: #### Snehal CANALES BMP, , 2776-06 ####[facility] ([id number])[address], [address], [place] [address] CO2 [Moles/Vol] 26 mmol/L Normal 22-32 [facility] Comment on above: Performed By: #### C ALLY [facility], , 2776-06 ####[facility] ([id number])[address] [address], [place] [address] Creatinine [Mass/Vol] 1.61 mg/dL High 0.60-1.30 [facility] Comment on above: Result Comment: METH OD TRACEABLE TO IDMS STANDARD Performed By: #### C ALLY [facility], , 2776-06 ####[facility] ([id number])[address] [address] [address] GFR/1.73 sq M.predicted among non-blacks MDRD (S/P/Bld) [Vol rate/Area] 49 mL/min/{1.73_m2} Low >59 [facility] Comment on above: Result Comment: Reported eGFR is based on the CKD-EPI 2020 equation that does not use a race coefficient. Performed By: #### C ALLY [facility], , 2776-06 ####[facility] ([id number])[address] [address] [address] Glucose [Mass/Vol] 184 mg/dL High 65-99 [facility] Comment on above: Performed By: #### C ALLY [facility], , 2776-06 ####[facility] ([id number])[address] [address], [place] [address] Potassium [Moles/Vol] 4.0 mmol/L Normal 3.5-5.0 [facility] Comment on above: Performed By: #### C ALLY, [facility], , 2776-06 ####[facility] ([id number])[address] [address], [place] [address] Sodium [Moles/Vol] 135 mmol/L Normal 134-146 [facility] Comment on above: Performed By: #### C ALLY, KENDALL, , 2776-06 ####[facility] ([id number])[address], [address] [address] Urea nitrogen [Mass/Vol] 23 mg/dL Normal 5-23 [facility] Comment on above: Performed By: #### C ALLY, KENDALL, , 2776-06 ####[facility] ([id number])[address], [address] [address] COMPLETE BLOOD COUNTon 11-13 Erythrocyte distribution width (RBC) [Ratio] 22.8 % High 11.5-15.0 [facility] Comment on above: Performed By: #### C ALLY, KENDALL, , 2776-06 ####[facility] ([id number])[address] [address] Hematocrit (Bld) [Volume fraction] 25.1 % Low 39-49 [facility] Comment on above: Performed By: #### Snehal CANALES [facility], , 2776-06 ####[facility] ([id number])[address] [address] [address] Hemoglobin (Bld) [Mass/Vol] 8.1 g/dL Low 13.0-17.0 [facility] Comment on above: Performed By: #### KENDALL AHUJA, , 2776-06 ####[facility] ([id number])[address], [place] [address] MCH (RBC) [Entitic mass] 25.1 pg Low 27-34 [facility] Comment on above: Performed By: #### C ALLY, BMP, , 2776-06 ####[facility] ([id number])[address], [address], [place] [address] MCHC (RBC) [Mass/Vol] 32.4 g/dL Normal 32-36 [facility] Comment on above: Performed By: #### C ALLY, BMP, , 2776-06 ####[facility] ([id number])[address] [address] [place] [address] MCV (RBC) [Entitic vol] 77 fL Low 80-100 [facility] Comment on above: Performed By: #### C ALLY, [facility], , 2776-06 ####[facility] ([id number])[address], [address], [place] [address] Platelet mean volume (Bld) [Entitic vol] 8.8 fL Normal 7-12 [facility] Comment on above: Performed By: #### Snehal CANALES, [facility], , 2776-06 ####[facility] ([id number])[address] [address] [place] [address] Platelets (Bld) [#/Vol] 232 10*3/uL Normal 150-450 [facility] Comment on above: Performed By: #### Snehal CANALES [facility], , 2776-06 ####[facility] ([id number])[address] [address] [place] [address] RBC COUNT 3.25 X10E12/L Low 4.10-5.70 [facility] Comment on above: Performed By: #### Snehal CANALES [facility], , 2776-06 ####[facility] ([id number])[address] [address] [place] [address] WBC (Bld) [#/Vol] 8.4 10*3/uL Normal 4.0-11.0 [facility] Comment on above: Performed By: #### Snehal CANALES [facility], , 2776-06 ####[facility] ([id number])[address] [address] [place] [address] Glucose Glucometer (BldC) [M ass/Vol]on 11-14-2023 Glucose [Mass/Vol] 173 mg/dL High 65-99 [facility] Glucose [Mass/Vol] 279 mg/dL High 65-99 [facility] Glucose [Mass/Vol] 249 mg/dL High 65-99 [facility] MAGNESIUMon 11-14-2023 Magnesium [Mass/Vol] 2.1 mg/dL Normal 1.8-2.6 [facility] Comment on above: Performed By: #### 1 9123-9 ####[facility] ([id number])[address], [address], [place] [address] Magnesium [Mass/Vol] mg/dL Critically low 1.8-2.6 [facility] Comment on above: Performed By: #### 1 9123-9 ####[facility] ([id number])[address], [address], [place] [address] Magnesium [Mass/Vol] 1.7 mg/dL Low 1.8-2.6 [facility] Comment on above: Performed By: #### C KENDALL CANALES, , 2777-1 ####[facility] ([id number])[address], [address], [place] [address] PHOSPHORUSon 11-14-2023 Phosphate [Mass/Vol] 3.6 mg/dL Normal 2.4-4.9 [facility] Comment on above: Performed By: #### Snehal CANALES BMP, , 7-1 ####[facility] ([id number])[address], [address], [place] [address] BASIC METABOLIC PANLon 11-12 Anion gap [Moles/Vol] 10 mmol/L Normal 5-15 [facility] Comment on above: Performed By: #### Snehal CANALES, BMP, , 7-1 ####[facility] ([id number])[address], [address], [place] [address] Calcium [Mass/Vol] 8.9 mg/dL Normal 8.5-10.5 [facility] Comment on above: Performed By: #### C KENDALL CANALES, , 2776-06 ####[facility] ([id number])[address], [address], [place] [address] Chloride [Moles/Vol] 98 mmol/L Normal 98-109 [facility] Comment on above: Performed By: #### C KENDALL CANALES, , 2776-06 ####[facility] ([id number])[address], [address], [place] [address] CO2 [Moles/Vol] 27 mmol/L Normal 22-32 [facility] Comment on above: Performed By: #### KENDALL AHUJA, , 2776-06 ####[facility] ([id number])[address], [address], [place] [address] Creatinine [Mass/Vol] 1.47 mg/dL High 0.60-1.30 [facility] Comment on above: Result Comment: METH OD TRACEABLE TO IDMS STANDARD Performed By: #### C KENDALL CANALES, , 2776-06 ####[facility] ([id number])[address], [place] [address] GFR/1.73 sq M.predicted among non-blacks MDRD (S/P/Bld) [Vol rate/Area] 55 mL/min/{1.73_m2} Low >59 [facility] Comment on above: Result Comment: Reported eGFR is based on the CKD-EPI 2020 equation that does not use a race coefficient. Performed By: #### C KENDALL CANALES, , 2776-06 ####[facility] ([id number])[address], [address], [place] [address] Glucose [Mass/Vol] 164 mg/dL High 65-99 [facility] Comment on above: Performed By: #### C ALLY, [facility], , 2776-06 ####[facility] ([id number])[address], [place] [address] Potassium [Moles/Vol] 3.8 mmol/L Normal 3.5-5.0 [facility] Comment on above: Performed By: #### C , [facility], , 2776-06 ####[facility] ([id number])[address] [place] [address] Sodium [Moles/Vol] 135 mmol/L Normal 134-146 [facility] Comment on above: Performed By: #### C ALLY, [facility], , 2776-06 ####[facility] ([id number])[address] [place] [address] Urea nitrogen [Mass/Vol] 26 mg/dL High 5-23 [facility] Comment on above: Performed By: #### C ALLY, [facility], , 2776-06 ####[facility] ([id number])[address] [address], [place] [address] COMPLETE BLOOD COUNTon 11-12 Erythrocyte distribution width (RBC) [Ratio] 23.2 % High 11.5-15.0 [facility] Comment on above: Performed By: #### Snehal CANALES, [facility], , 2776-06 ####[facility] ([id number])[address] [address], [place] [address] Hematocrit (Bld) [Volume fraction] 24.7 % Low 39-49 [facility] Comment on above: Performed By: #### C ALLY, [facility], , 2776-06 ####[facility] ([id number])[address] [address], [place] [address] Hemoglobin (Bld) [Mass/Vol] 8.2 g/dL Low 13.0-17.0 [facility] Comment on above: Performed By: #### KENDALL AHUJA, , 2776-06 ####[facility] ([id number])[address] [place] [address] MCH (RBC) [Entitic mass] 25.7 pg Low 27-34 [facility] Comment on above: Performed By: #### KENDALL AHUJA, , 2776-06 ####[facility] ([id number])[address] [place] [address] MCHC (RBC) [Mass/Vol] 33.4 g/dL Normal 32-36 [facility] Comment on above: Performed By: #### KENDALL AHUJA, , 2776-06 ####[facility] ([id number])[address] [place] [address] MCV (RBC) [Entitic vol] 77 fL Low 80-100 [facility] Comment on above: Performed By: #### KENDALL AHUJA, , 2776-06 ####[facility] ([id number])[address] [address] [place] [address] Platelet mean volume (Bld) [Entitic vol] 8.8 fL Normal 7-12 [facility] Comment on above: Performed By: #### KENDALL AHUJA, , 2776-06 ####[facility] ([id number])[address] [address] [place] [address] Platelets (Bld) [#/Vol] 207 10*3/uL Normal 150-450 [facility] Comment on above: Performed By: #### KENDALL AHUJA, , 2776-06 ####[facility] ([id number])[address] [place] [place] [address] RBC COUNT 3.21 X10E12/L Low 4.10-5.70 [facility] Comment on above: Performed By: #### KENDALL AHUJA, , 2776-06 ####[facility] ([id number])[address] [address] WBC (Bld) [#/Vol] 8.1 10*3/uL Normal 4.0-11.0 [facility] Comment on above: Performed By: #### KENDALL AHUJA, , 2776-06 ####[facility] ([id number])[address] [address] Glucose Glucometer (BldC) [M ass/Vol]on 11-13-2023 Glucose [Mass/Vol] 230 mg/dL High 65-99 [facility] Glucose [Mass/Vol] 225 mg/dL High 65-99 [facility] Glucose [Mass/Vol] 331 mg/dL High 65-99 [facility] Glucose [Mass/Vol] 190 mg/dL High 65-99 [facility] MAGNESIUMon 11-13-2023 Magnesium [Mass/Vol] 2.1 mg/dL Normal 1.8-2.6 [facility] Comment on above: Performed By: #### KENDALL AHUJA, , 2776-06 ####[facility] ([id number])[address], [address] [place] [address] PHOSPHORUSon 11-13-2023 Phosphate [Mass/Vol] 3.8 mg/dL Normal 2.4-4.9 [facility] Comment on above: Performed By: #### KENDALL AHUJA, , 2776-06 ####[facility] ([id number])[address] [address] BASIC METABOLIC PANLon 11-11 Anion gap [Moles/Vol] 11 mmol/L Normal 5-15 [facility] Comment on above: Performed By: #### C ALLY, BMP #### [facility] ([id number]) [address], [address] [place] [address] Calcium [Mass/Vol] 9.0 mg/dL Normal 8.5-10.5 [facility] Comment on above: Performed By: #### C ALLY, BMP #### [facility] ([id number]) [address], [address] [place] [address] Chloride [Moles/Vol] 98 mmol/L Normal 98-109 [facility] Comment on above: Performed By: #### C ALLY, BMP #### [facility] ([id number]) [address], [address] [place] [address] CO2 [Moles/Vol] 25 mmol/L Normal 22-32 [facility] Comment on above: Performed By: #### C ALLY, BMP #### [facility] ([id number]) [address], [address] [place] [address] Creatinine [Mass/Vol] 1.40 mg/dL High 0.60-1.30 [facility] Comment on above: Result Comment: METH OD TRACEABLE TO IDMS STANDARD Performed By: #### C ALLY, BMP #### [facility] ([id number]) [address], [address] [place] [address] GFR/1.73 sq M.predicted among non-blacks MDRD (S/P/Bld) [Vol rate/Area] 58 mL/min/{1.73_m2} Low >59 [facility] Comment on above: Result Comment: Reported eGFR is based on the CKD-EPI 2020 equation that does not use a race coefficient. Performed By: #### C ALLY, BMP #### [facility] ([id number]) [address], [address] [place] [address] Glucose [Mass/Vol] 194 mg/dL High 65-99 [facility] Comment on above: Performed By: #### C ALLY, BMP #### [facility] ([id number]) [address], [address] [place] [address] Potassium [Moles/Vol] 4.0 mmol/L Normal 3.5-5.0 [facility] Comment on above: Performed By: #### C ALLY, BMP #### [facility] ([id number]) [address], [address] [place] [address] Sodium [Moles/Vol] 134 mmol/L Normal 134-146 [facility] Comment on above: Performed By: #### C ALLY, BMP #### [facility] ([id number]) [address] [place] [address] Urea nitrogen [Mass/Vol] 23 mg/dL Normal 5-23 [facility] Comment on above: Performed By: #### C ALLY, BMP #### [facility] ([id number]) [address], [address] [place] [address] COMPLETE BLOOD COUNTon 11-11 Erythrocyte distribution width (RBC) [Ratio] 24.1 % High 11.5-15.0 [facility] Comment on above: Performed By: #### C ALLY, BMP #### [facility] ([id number]) [address], [address] [place] [address] Hematocrit (Bld) [Volume fraction] 25.8 % Low 39-49 [facility] Comment on above: Performed By: #### C ALLY, BMP #### [facility] ([id number]) [address], [address] [place] [address] Hemoglobin (Bld) [Mass/Vol] 8.6 g/dL Low 13.0-17.0 [facility] Comment on above: Performed By: #### C ALLY, BMP #### [facility] ([id number]) [address], [address] [place] [address] MCH (RBC) [Entitic mass] 25.7 pg Low 27-34 [facility] Comment on above: Performed By: #### C ALLY, BMP #### [facility] ([id number]) [address], [address] [place] [address] MCHC (RBC) [Mass/Vol] 33.5 g/dL Normal 32-36 [facility] Comment on above: Performed By: #### C ALLY, BMP #### [facility] ([id number]) [address], [address] [place] [address] MCV (RBC) [Entitic vol] 77 fL Low 80-100 [facility] Comment on above: Performed By: #### C ALLY, BMP #### [facility] ([id number]) [address], [address] [place] [address] Platelet mean volume (Bld) [Entitic vol] 9.2 fL Normal 7-12 [facility] Comment on above: Performed By: #### Snehal CANALES, BMP #### [facility] ([id number]) [address], [address] [place] [address] Platelets (Bld) [#/Vol] 185 10*3/uL Normal 150-450 [facility] Comment on above: Performed By: #### Snehal CANALES, BMP #### [facility] ([id number]) [address], [address] [place] [address] RBC COUNT 3.37 X10E12/L Low 4.10-5.70 [facility] Comment on above: Performed By: #### C ALLY, BMP #### [facility] ([id number]) [address] [place] [address] WBC (Bld) [#/Vol] 10.0 10*3/uL Normal 4.0-11.0 [facility] Comment on above: Performed By: #### Snehal CANALES, BMP #### [facility] ([id number]) [address], [address] [place] [address] Glucose Glucometer (BldC) [M ass/Vol]on 11-12-2023 Glucose [Mass/Vol] 230 mg/dL High 65-99 [facility] Glucose [Mass/Vol] 280 mg/dL High 65-99 [facility] Glucose [Mass/Vol] 268 mg/dL High 65-99 [facility] Glucose [Mass/Vol] 220 mg/dL High 65-99 [facility] Glucose [Mass/Vol] 205 mg/dL High 65-99 [facility] MAGNESIUMon 11-12-2023 Magnesium [Mass/Vol] 1.8 mg/dL Normal 1.8-2.6 [facility] Comment on above: Performed By: #### Snehal CANALES, BMP #### [facility] ([id number]) [address], [address] [place] [address] PHOSPHORUSon 11-12-2023 Phosphate [Mass/Vol] 3.8 mg/dL Normal 2.4-4.9 [facility] Comment on above: Performed By: #### Snehal CANALES, BMP #### [facility] ([id number]) [address], [address] [place] [address] BASIC METABOLIC PANLon 11-10 Anion gap [Moles/Vol] 8 mmol/L Normal 5-15 [facility] Comment on above: Performed By: #### Snehal CANALES, BMP #### [facility] ([id number]) [address], [address] [place] [address] Calcium [Mass/Vol] 8.7 mg/dL Normal 8.5-10.5 [facility] Comment on above: Performed By: #### Snehal CANALES, BMP #### [facility] ([id number]) [address], [address] [place] [address] Chloride [Moles/Vol] 99 mmol/L Normal 98-109 [facility] Comment on above: Performed By: #### C ALLY, BMP #### [facility] ([id number]) [address], [address] [place] [address] CO2 [Moles/Vol] 26 mmol/L Normal 22-32 [facility] Comment on above: Performed By: #### C ALLY, BMP #### [facility] ([id number]) [address], [address] [place] [address] Creatinine [Mass/Vol] 1.45 mg/dL High 0.60-1.30 [facility] Comment on above: Result Comment: METH OD TRACEABLE TO IDMS STANDARD Performed By: #### C ALLY, BMP #### [facility] ([id number]) [address] [place] [address] GFR/1.73 sq M.predicted among non-blacks MDRD (S/P/Bld) [Vol rate/Area] 56 mL/min/{1.73_m2} Low >59 [facility] Comment on above: Result Comment: Reported eGFR is based on the CKD-EPI 2020 equation that does not use a race coefficient. Performed By: #### C ALLY, BMP #### [facility] ([id number]) [address], [address] [place] [address] Glucose [Mass/Vol] 153 mg/dL High 65-99 [facility] Comment on above: Performed By: #### Snehal CANALES, BMP #### [facility] ([id number]) [address], [address] [place] [address] Potassium [Moles/Vol] 3.9 mmol/L Normal 3.5-5.0 [facility] Comment on above: Performed By: #### Snehal CANALES, BMP #### [facility] ([id number]) [address], [address] [place] [address] Sodium [Moles/Vol] 133 mmol/L Low 134-146 [facility] Comment on above: Performed By: #### C BC, BMP #### [facility] ([id number]) [address], [address] [place] [address] Urea nitrogen [Mass/Vol] 27 mg/dL High 5-23 [facility] Comment on above: Performed By: #### C BC, BMP #### [facility] ([id number]) [address], [address] [place] [address] COMPLETE BLOOD COUNTon 11-10 Erythrocyte distribution width (RBC) [Ratio] 24.2 % High 11.5-15.0 [facility] Comment on above: Performed By: #### C ALLY, BMP #### [facility] ([id number]) [address], [address] [place] [address] Hematocrit (Bld) [Volume fraction] 25.1 % Low 39-49 [facility] Comment on above: Performed By: #### C BC, BMP #### [facility] ([id number]) [address], [address] [place] [address] Hemoglobin (Bld) [Mass/Vol] 8.2 g/dL Low 13.0-17.0 [facility] Comment on above: Performed By: #### C BC, BMP #### [facility] ([id number]) [address], [address] [place] [address] MCH (RBC) [Entitic mass] 25.5 pg Low 27-34 [facility] Comment on above: Performed By: #### C BC, BMP #### [facility] ([id number]) [address], [address] [place] [address] MCHC (RBC) [Mass/Vol] 32.7 g/dL Normal 32-36 [facility] Comment on above: Performed By: #### C BC, BMP #### [facility] ([id number]) [address], [address] [place] [address] MCV (RBC) [Entitic vol] 78 fL Low 80-100 [facility] Comment on above: Performed By: #### Snehal CANALES, BMP #### [facility] ([id number]) [address], [address] [place] [address] Platelet mean volume (Bld) [Entitic vol] 9.0 fL Normal 7-12 [facility] Comment on above: Performed By: #### Snehal CANALES, BMP #### [facility] ([id number]) [address], [address] [place] [address] Platelets (Bld) [#/Vol] 152 10*3/uL Normal 150-450 [facility] Comment on above: Performed By: #### Senhal CANALES, BMP #### [facility] ([id number]) [address], [address] [place] [address] RBC COUNT 3.22 X10E12/L Low 4.10-5.70 [facility] Comment on above: Performed By: #### Snehal CANALES, BMP #### [facility] ([id number]) [address], [facility] [address] [place] [address] WBC (Bld) [#/Vol] 9.8 10*3/uL Normal 4.0-11.0 [facility] Comment on above: Performed By: #### Snehal CANALES, BMP #### [facility] ([id number]) [address], [address] [place] [address] Glucose Glucometer (BldC) [M ass/Vol]on 11-11-2023 Glucose [Mass/Vol] 184 mg/dL High 65-99 [facility] Glucose [Mass/Vol] 179 mg/dL High 65-99 [facility] Glucose [Mass/Vol] 222 mg/dL High 65-99 [facility] Glucose [Mass/Vol] 303 mg/dL High 65-99 [facility] MAGNESIUMon 11-11-2023 Magnesium [Mass/Vol] 2.4 mg/dL Normal 1.8-2.6 [facility] Comment on above: Performed By: #### Snehal CANALES, BMP #### [facility] ([id number]) [address], [address] [place] [address] Magnesium [Mass/Vol] 1.9 mg/dL Normal 1.8-2.6 [facility] Comment on above: Performed By: #### Snehal CANALES, BMP #### [facility] ([id number]) [address] [place] [address] PHOSPHORUSon 11-11-2023 Phosphate [Mass/Vol] 3.2 mg/dL Normal 2.4-4.9 [facility] Comment on above: Performed By: #### Snehal CANALES, BMP #### [facility] ([id number]) [address], [address] [place] [address] BASIC METABOLIC PANLon 11-09 Anion gap [Moles/Vol] 6 mmol/L Normal 5-15 [facility] Comment on above: Performed By: #### KENDALL AHUJA, , 1 ####[facility] ([id number])[address], [address], [place] [address] Calcium [Mass/Vol] 8.5 mg/dL Normal 8.5-10.5 [facility] Comment on above: Performed By: #### KENDALL AHUJA, , 2776-1 ####[facility] ([id number])[address], [place] [address] Chloride [Moles/Vol] 102 mmol/L Normal 98-109 [facility] Comment on above: Performed By: #### KENDALL AHUJA, , 2776- ####[facility] ([id number])[address], [place] [address] CO2 [Moles/Vol] 26 mmol/L Normal 22-32 [facility] Comment on above: Performed By: #### C KENDALL CANALES, , 2776-06 ####[facility] ([id number])[address] [place] [address] Creatinine [Mass/Vol] 1.59 mg/dL High 0.60-1.30 [facility] Comment on above: Result Comment: METH OD TRACEABLE TO IDMS STANDARD Performed By: #### C KENDALL CANALES, , 2776-06 ####[facility] ([id number])[address] [address] [address] GFR/1.73 sq M.predicted among non-blacks MDRD (S/P/Bld) [Vol rate/Area] 50 mL/min/{1.73_m2} Low >59 [facility] Comment on above: Result Comment: Reported eGFR is based on the CKD-EPI 2020 equation that does not use a race coefficient. Performed By: #### C KENDALL CANALES, , 2776-06 ####[facility] ([id number])[address] [address] [place] [address] Glucose [Mass/Vol] 145 mg/dL High 65-99 [facility] Comment on above: Performed By: #### KENDALL AHUJA, , 2776-06 ####[facility] ([id number])[address] [address] [place] [address] Potassium [Moles/Vol] 3.9 mmol/L Normal 3.5-5.0 [facility] Comment on above: Performed By: #### KENDALL AHUJA, , 2776-06 ####[facility] ([id number])[address] [address] [place] [address] Sodium [Moles/Vol] 134 mmol/L Normal 134-146 [facility] Comment on above: Performed By: #### C BC, [facility], , 2776-06 ####[facility] ([id number])[address] [address], [place] [address] Urea nitrogen [Mass/Vol] 23 mg/dL Normal 5-23 [facility] Comment on above: Performed By: #### C ALLY, [facility], , 2776-06 ####[facility] ([id number])[address] [address], [place] [address] COMPLETE BLOOD COUNTon 11-09 Erythrocyte distribution width (RBC) [Ratio] 24.9 % High 11.5-15.0 [facility] Comment on above: Performed By: #### C ALLY, [facility], , 2776-06 ####[facility] ([id number])[address] [address] [address] Hematocrit (Bld) [Volume fraction] 24.5 % Low 39-49 [facility] Comment on above: Performed By: #### C ALLY, [facility], , 2776-06 ####[facility] ([id number])[address] [address], [place] [address] Hemoglobin (Bld) [Mass/Vol] 7.9 g/dL Low 13.0-17.0 [facility] Comment on above: Performed By: #### C ALLY, [facility], , 2776-06 ####[facility] ([id number])[address] [address], [place] [address] MCH (RBC) [Entitic mass] 25.4 pg Low 27-34 [facility] Comment on above: Performed By: #### C BC, BMP, , 2776-06 ####[facility] ([id number])[address] [address], [place] [address] MCHC (RBC) [Mass/Vol] 32.4 g/dL Normal 32-36 [facility] Comment on above: Performed By: #### C ALLY, BMP, , 2776-06 ####[facility] ([id number])[address], [place] [address] MCV (RBC) [Entitic vol] 78 fL Low 80-100 [facility] Comment on above: Performed By: #### Snehal CANALES, BMP, , 2776-06 ####[facility] ([id number])[address] [place] [address] Platelet mean volume (Bld) [Entitic vol] 9.1 fL Normal 7-12 [facility] Comment on above: Performed By: #### KENDALL AHUJA, , 2776-06 ####[facility] ([id number])[address] [place] [address] Platelets (Bld) [#/Vol] 142 10*3/uL Low 150-450 [facility] Comment on above: Performed By: #### Snehal CANALES, BMP, , 2776-06 ####[facility] ([id number])[address] [place] [place] [address] RBC COUNT 3.14 X10E12/L Low 4.10-5.70 [facility] Comment on above: Performed By: #### Snehal CANALES, BMP, , 2776-06 ####[facility] ([id number])[address], [address] [place] [address] WBC (Bld) [#/Vol] 9.7 10*3/uL Normal 4.0-11.0 [facility] Comment on above: Performed By: #### Snehal CANALES, BMP, , 2776-06 ####[facility] ([id number])[address] [place] [place] [address] Glucose Glucometer (BldC) [M ass/Vol]on 11-10-2023 Glucose [Mass/Vol] 168 mg/dL High 65-99 [facility] Glucose [Mass/Vol] 245 mg/dL High 65-99 [facility] Glucose [Mass/Vol] 155 mg/dL High 65-99 [facility] Glucose [Mass/Vol] 153 mg/dL High 65-99 [facility] MAGNESIUMon 11-10-2023 Magnesium [Mass/Vol] 2.2 mg/dL Normal 1.8-2.6 [facility] Comment on above: Performed By: #### Snehal CANALES, BMP #### [facility] ([id number]) [address], [address] [place] [address] Magnesium [Mass/Vol] 1.8 mg/dL Normal 1.8-2.6 [facility] Comment on above: Performed By: #### Snehal CANALES, KENDALL, , 1 ####[facility] ([id number])[address], [address] [place] [address] PHOSPHORUSon 11-10-2023 Phosphate [Mass/Vol] 3.1 mg/dL Normal 2.4-4.9 [facility] Comment on above: Performed By: #### Snehal CANALES, KENDALL, , 1 ####[facility] ([id number])[address], [address] [place] [address] BASIC METABOLIC PANLon 11-08 Anion gap [Moles/Vol] 9 mmol/L Normal 5-15 [facility] Comment on above: Performed By: #### Snehal CANALES, 2639-3, BMP, 2156-6, , 2776-1 ####[facility] ([id number])[address], [address] [place] [address] Calcium [Mass/Vol] 8.4 mg/dL Low 8.5-10.5 [facility] Comment on above: Performed By: #### C BC, 2639-3, BMP, 7-6, 82165-4, 2776- ####[facility] ([id number])[address] [address] [place] [address] Chloride [Moles/Vol] 104 mmol/L Normal 98-109 [facility] Comment on above: Performed By: #### C BC, 2639-3, BMP, 2156-6, , 2776- ####[facility] ([id number])[address] [address] CO2 [Moles/Vol] 25 mmol/L Normal 22-32 [facility] Comment on above: Performed By: #### C BC, 2639-3, BMP, 2156-6, , 2776-1 ####[facility] ([id number])[address] [address] Creatinine [Mass/Vol] 1.35 mg/dL High 0.60-1.30 [facility] Comment on above: Result Comment: METH OD TRACEABLE TO IDMS STANDARD Performed By: #### C BC, 2639-3, BMP, 2156-6, 76718-4, 2776-1 ####[facility] ([id number])[address] [address] GFR/1.73 sq M.predicted among non-blacks MDRD (S/P/Bld) [Vol rate/Area] 61 mL/min/{1.73_m2} Normal >59 [facility] Comment on above: Result Comment: Reported eGFR is based on the CKD-EPI 2020 equation that does not use a race coefficient. Performed By: #### C BC, 2639-3, BMP, 2156-6, 24476-3, 2776-1 ####[facility] ([id number])[address], [place] [address] Glucose [Mass/Vol] 217 mg/dL High 65-99 [facility] Comment on above: Performed By: #### C ALLY, 2639-3, BMP, 2156-11, , 2776- ####[facility] ([id number])[address] [place] [place] [address] Potassium [Moles/Vol] 4.2 mmol/L Normal 3.5-5.0 [facility] Comment on above: Performed By: #### C ALLY, 9-3, BMP, 2156-11, , 2776- ####[facility] ([id number])[address], [place] [address] Sodium [Moles/Vol] 138 mmol/L Normal 134-146 [facility] Comment on above: Performed By: #### C ALLY, 2638-3, BMP, 2156-11, , 2776-06 ####[facility] ([id number])[address], [address] [place] [address] Urea nitrogen [Mass/Vol] 23 mg/dL Normal 5-23 [facility] Comment on above: Performed By: #### C ALLY, 2638-3, BMP, 2156-11, , 2771 ####[facility] ([id number])[address], [place] [address] CK [Catalytic activity/Vol]o n 11-09-2023 CPK 44 U/L Normal 24-195 [facility] Comment on above: Performed By: #### 2 157-6, 2638-3 ####[facility] ([id number])[address], [address], [place] [address] CPK 30 U/L Normal 24-195 [facility] Comment on above: Performed By: #### C ALLY, 2639-3, BMP, 6, , 2776-06 ####[facility] ([id number])[address], [address] [place] [address] COMPLETE BLOOD COUNTon 11-08 Erythrocyte distribution width (RBC) [Ratio] 24.9 % High 11.5-15.0 [facility] Comment on above: Performed By: #### Snehal BC, 2639-3, BMP, 2156-6, , 2776- ####[facility] ([id number])[address], [address] [place] [address] Hematocrit (Bld) [Volume fraction] 26.8 % Low 39-49 [facility] Comment on above: Performed By: #### Snehal BC, 2639-3, BMP, 2156-6, , 2776-06 ####[facility] ([id number])[address], [address] [place] [address] Hemoglobin (Bld) [Mass/Vol] 8.7 g/dL Low 13.0-17.0 [facility] Comment on above: Performed By: #### Snehal BC, 2639-3, BMP, 2156-, , 2776-06 ####[facility] ([id number])[address] [address] [place] [address] MCH (RBC) [Entitic mass] 24.8 pg Low 27-34 [facility] Comment on above: Performed By: #### C BC, 2639-3, BMP, 2156-6, , 2776- ####[facility] ([id number])[address], [address] [place] [address] MCHC (RBC) [Mass/Vol] 32.6 g/dL Normal 32-36 [facility] Comment on above: Performed By: #### C BC, 2639-3, BMP, 2156-6, , 2776-06 ####[facility] ([id number])[address], [address] [place] [address] MCV (RBC) [Entitic vol] 76 fL Low 80-100 [facility] Comment on above: Performed By: #### C ALLY, 2639-3, BMP, 2156-6, , 2776-06 ####[facility] ([id number])[address], [address] [place] [address] Platelet mean volume (Bld) [Entitic vol] 9.3 fL Normal 7-12 [facility] Comment on above: Performed By: #### Snehal CANALES, 2639-3, BMP, 2156-11, , 2776-06 ####[facility] ([id number])[address] [address] [place] [address] Platelets (Bld) [#/Vol] 184 10*3/uL Normal 150-450 [facility] Comment on above: Performed By: #### Snehal CANALES, 2639-3, BMP, 2156-, , 2776-06 ####[facility] ([id number])[address], [address] [place] [address] RBC COUNT 3.53 X10E12/L Low 4.10-5.70 [facility] Comment on above: Performed By: #### Snehal CANALES, 2639-3, BMP, 2156-11, , 2776-06 ####[facility] ([id number])[address] [address] [place] [address] WBC (Bld) [#/Vol] 11.0 10*3/uL Normal 4.0-11.0 [facility] Comment on above: Performed By: #### Snehal CANALES, 2639-3, BMP, 2156-11, , 2776-06 ####[facility] ([id number])[address] [facility] [address] [place] [address] Glucose Glucometer (BldC) [M ass/Vol]on 11-09-2023 Glucose [Mass/Vol] 243 mg/dL High 65-99 [facility] Glucose [Mass/Vol] 184 mg/dL High 65-99 [facility] Glucose [Mass/Vol] 199 mg/dL High 65-99 [facility] Glucose [Mass/Vol] 218 mg/dL High 65-99 [facility] Heparin unfractionated Chrom ogenic method Qn (PPP)on 11-09-2023 ANTI XA UFH 0.15 IU/mL Low 0.30-0.70 [facility] Comment on above: Result Comment: Opti mal time for testing is 6 hrs post dosage This test is specific for monitoring patients on UFH, and is not recommended for use with other Anti-Xa medications. Performed By: #### 3 274-8 ####[facility] ([id number])2130 [facility], [address] [place] [id number] MAGNESIUMon 11-09-2023 Magnesium [Mass/Vol] 2.2 mg/dL Normal 1.8-2.6 [facility] Comment on above: Performed By: #### C ALLY, 2639-3, [facility], 2156-11, 98478-2, 2777-1 ####[facility] ([id number])2130 [facility], [address] [place] [address] Myoglobin [Mass/Vol]on 11-08 SERUM MYOGLOBIN 97.7 ng/mL Normal 17.4-105.7 [facility] Comment on above: Performed By: #### 2 157-6, 2639-3 ####[facility] ([id number])2130 [facility], [address] [place] [address] SERUM MYOGLOBIN 51.7 ng/mL Normal 17.4-105.7 [facility] Comment on above: Performed By: #### C ALLY, 2639-3, BMP, 2156-11, , 2776-06 ####[facility] ([id number])[address], [address] [place] [address] PHOSPHORUSon 11-09-2023 Phosphate [Mass/Vol] 4.4 mg/dL Normal 2.4-4.9 [facility] Comment on above: Performed By: #### C BC, 2639-3, BMP, 2156-11, , 2776-06 ####[facility] ([id number])[address], [address], [place] [address] BASIC METABOLIC PANLon 11-07 Anion gap [Moles/Vol] 9 mmol/L Normal 5-15 [facility] Comment on above: Performed By: #### P INR #### [facility] ([id number]) [address], [address] [place] [address] Calcium [Mass/Vol] 8.4 mg/dL Low 8.5-10.5 [facility] Comment on above: Performed By: #### P INR #### [facility] ([id number]) [address], [address] [place] [address] Chloride [Moles/Vol] 106 mmol/L Normal 98-109 [facility] Comment on above: Performed By: #### P INR #### [facility] ([id number]) [address], [address] [place] [address] CO2 [Moles/Vol] 24 mmol/L Normal 22-32 [facility] Comment on above: Performed By: #### P INR #### [facility] ([id number]) [address], [address] [place] [address] Creatinine [Mass/Vol] 1.30 mg/dL Normal 0.60-1.30 [facility] Comment on above: Result Comment: METH OD TRACEABLE TO IDMS STANDARD Performed By: #### P INR #### [facility] ([id number]) [address] [address] [place] [address] GFR/1.73 sq M.predicted among non-blacks MDRD (S/P/Bld) [Vol rate/Area] 64 mL/min/{1.73_m2} Normal >59 [facility] Comment on above: Result Comment: Reported eGFR is based on the CKD-EPI 2020 equation that does not use a race coefficient. Performed By: #### P INR #### [facility] ([id number]) [address], [address] [place] [address] Glucose [Mass/Vol] 163 mg/dL High 65-99 [facility] Comment on above: Performed By: #### P INR #### [facility] ([id number]) [address] [address] [place] [address] Potassium [Moles/Vol] 4.1 mmol/L Normal 3.5-5.0 [facility] Comment on above: Performed By: #### P INR #### [facility] ([id number]) [address], [address] [place] [address] Sodium [Moles/Vol] 139 mmol/L Normal 134-146 [facility] Comment on above: Performed By: #### P INR #### [facility] ([id number]) [address] [address] [place] [address] Urea nitrogen [Mass/Vol] 23 mg/dL Normal 5-23 [facility] Comment on above: Performed By: #### P INR #### [facility] ([id number]) [address] [address] [place] [address] Anion gap [Moles/Vol] 9 mmol/L Normal 5-15 [facility] Comment on above: Performed By: #### C BC, BMP #### [facility] ([id number]) [address] [place] [address] Calcium [Mass/Vol] 8.8 mg/dL Normal 8.5-10.5 [facility] Comment on above: Performed By: #### C ALLY, BMP #### [facility] ([id number]) [address] [place] [address] Chloride [Moles/Vol] 104 mmol/L Normal 98-109 [facility] Comment on above: Performed By: #### C ALLY, BMP #### [facility] ([id number]) [address] [place] [address] CO2 [Moles/Vol] 25 mmol/L Normal 22-32 [facility] Comment on above: Performed By: #### Snehal CANALES, BMP #### [facility] ([id number]) [address] [address] [place] [address] Creatinine [Mass/Vol] 1.70 mg/dL High 0.60-1.30 [facility] Comment on above: Result Comment: METH OD TRACEABLE TO IDMS STANDARD Performed By: #### C ALLY, BMP #### [facility] ([id number]) [address] [address] GFR/1.73 sq M.predicted among non-blacks MDRD (S/P/Bld) [Vol rate/Area] 46 mL/min/{1.73_m2} Low >59 [facility] Comment on above: Result Comment: Reported eGFR is based on the CKD-EPI 2020 equation that does not use a race coefficient. Performed By: #### C ALLY, BMP #### [facility] ([id number]) [address], [address] [place] [address] Glucose [Mass/Vol] 111 mg/dL High 65-99 [facility] Comment on above: Performed By: #### C ALLY, BMP #### [facility] ([id number]) [address] [address] [place] [address] Potassium [Moles/Vol] 3.8 mmol/L Normal 3.5-5.0 [facility] Comment on above: Performed By: #### C BC, BMP #### [facility] ([id number]) [address] [place] [address] Sodium [Moles/Vol] 138 mmol/L Normal 134-146 [facility] Comment on above: Performed By: #### C BC, BMP #### [facility] ([id number]) [address], [address] [place] [address] Urea nitrogen [Mass/Vol] 28 mg/dL High 5-23 [facility] Comment on above: Performed By: #### C BC, BMP #### [facility] ([id number]) [address], [address] [place] [address] CK [Catalytic activity/Vol]o n 11-08-2023 CPK 26 U/L Normal 24-195 [facility] Comment on above: Performed By: #### P INR #### [facility] ([id number]) [address], [facility] [address] [place] [address] COMPLETE BLOOD COUNTon 11-07 Erythrocyte distribution width (RBC) [Ratio] 24.8 % High 11.5-15.0 [facility] Comment on above: Performed By: #### P INR #### [facility] ([id number]) [address], [address] [place] [address] Hematocrit (Bld) [Volume fraction] 29.3 % Low 39-49 [facility] Comment on above: Performed By: #### P INR #### [facility] ([id number]) [address], [address] [place] [address] Hemoglobin (Bld) [Mass/Vol] 9.6 g/dL Low 13.0-17.0 [facility] Comment on above: Performed By: #### P INR #### [facility] ([id number]) [address], [address] [place] [address] MCH (RBC) [Entitic mass] 24.9 pg Low 27-34 [facility] Comment on above: Performed By: #### P INR #### [facility] ([id number]) [address] [place] [address] MCHC (RBC) [Mass/Vol] 32.7 g/dL Normal 32-36 [facility] Comment on above: Performed By: #### P INR #### [facility] ([id number]) [address] [place] [address] MCV (RBC) [Entitic vol] 76 fL Low 80-100 [facility] Comment on above: Performed By: #### P INR #### [facility] ([id number]) [address] [place] [address] Platelet mean volume (Bld) [Entitic vol] 8.7 fL Normal 7-12 [facility] Comment on above: Performed By: #### P INR #### [facility] ([id number]) [address], [address] [place] [address] Platelets (Bld) [#/Vol] 169 10*3/uL Normal 150-450 [facility] Comment on above: Performed By: #### P INR #### [facility] ([id number]) [address], [address] [place] [address] RBC COUNT 3.85 X10E12/L Low 4.10-5.70 [facility] Comment on above: Performed By: #### P INR #### [facility] ([id number]) [address] [place] [address] WBC (Bld) [#/Vol] 13.5 10*3/uL High 4.0-11.0 [facility] Comment on above: Performed By: #### P INR #### [facility] ([id number]) [address], [address] [place] [address] Erythrocyte distribution width (RBC) [Ratio] 25.2 % High 11.5-15.0 [facility] Comment on above: Performed By: #### C BC, BMP #### [facility] ([id number]) [address], [address] [place] [address] Hematocrit (Bld) [Volume fraction] 33.0 % Low 39-49 [facility] Comment on above: Performed By: #### C BC, BMP #### [facility] ([id number]) [address] [place] [address] Hemoglobin (Bld) [Mass/Vol] 10.8 g/dL Low 13.0-17.0 [facility] Comment on above: Performed By: #### C BC, BMP #### [facility] ([id number]) [address], [address] [place] [address] MCH (RBC) [Entitic mass] 25.0 pg Low 27-34 [facility] Comment on above: Performed By: #### C BC, BMP #### [facility] ([id number]) [address] [place] [address] MCHC (RBC) [Mass/Vol] 32.8 g/dL Normal 32-36 [facility] Comment on above: Performed By: #### C BC, BMP #### [facility] ([id number]) [address] [place] [address] MCV (RBC) [Entitic vol] 76 fL Low 80-100 [facility] Comment on above: Performed By: #### C BC, BMP #### [facility] ([id number]) [address] [place] [address] Platelet mean volume (Bld) [Entitic vol] 8.8 fL Normal 7-12 [facility] Comment on above: Performed By: #### C BC, BMP #### [facility] ([id number]) [address], [address] [place] [address] Platelets (Bld) [#/Vol] 172 10*3/uL Normal 150-450 [facility] Comment on above: Performed By: #### C BC, BMP #### [facility] ([id number]) [address], [address] [place] [address] RBC COUNT 4.33 X10E12/L Normal 4.10-5.70 [facility] Comment on above: Performed By: #### C BC, BMP #### [facility] ([id number]) [address] [place] [address] WBC (Bld) [#/Vol] 9.3 10*3/uL Normal 4.0-11.0 [facility] Comment on above: Performed By: #### C BC, BMP #### [facility] ([id number]) [address], [address] [place] [address] Glucose Glucometer (dC) [M ass/Vol]on 11-08-2023 Glucose [Mass/Vol] 162 mg/dL High 65-99 [facility] Glucose [Mass/Vol] 96 mg/dL Normal 65-99 [facility] Glucose [Mass/Vol] 142 mg/dL High 65-99 [facility] Glucose [Mass/Vol] 114 mg/dL High 65-99 [facility] Lactate (P ekaterina) [Moles/Vol]o n 11-08-2023 LACTATE W/REFLEX 1.0 mmol/L Normal 0.4-2.0 [facility] Comment on above: Result Comment: Result did not trigger repeat Lactate, re-order if needed. Performed By: #### P INR #### [facility] ([id number]) [address] [address] [place] [address] MAGNESIUMon 11-08-2023 Magnesium [Mass/Vol] 1.7 mg/dL Low 1.8-2.6 [facility] Comment on above: Performed By: #### P INR #### [facility] ([id number]) [address] [address] [place] [address] Myoglobin [Mass/Vol]on 11-07 SERUM MYOGLOBIN 33.1 ng/mL Normal 17.4-105.7 [facility] Comment on above: Performed By: #### P INR #### [facility] ([id number]) [address] [place] [address] PHOSPHORUSon 11-08-2023 Phosphate [Mass/Vol] 4.0 mg/dL Normal 2.4-4.9 [facility] Comment on above: Performed By: #### P INR #### [facility] ([id number]) [address] [address] [place] [address] PROTIME AND INRon 11-08-2023 INR Coag (PPP) [Relative time] 1.3 {INR} High 0.8-1.1 [facility] Comment on above: Performed By: #### P INR #### [facility] ([id number]) [address] [address] [place] [address] PT Coag (PPP) [Time] 14.7 s High 9.8-13.2 [facility] Comment on above: Performed By: #### P INR #### [facility] ([id number]) [address] [place] [address] RAPID CARDIACon 11-08-2023 COURTNEY'S TEST Normal [facility] Comment on above: Performed By: #### A FAB5 #### [facility] ([id number]) [address] [place] [address] Base excess Calc (Bld) [Moles/Vol] 0.1 mmol/L Normal 0.0-2.0 [facility] Comment on above: Performed By: #### A FAB5 #### [facility] ([id number]) [address] [place] [address] Body temperature 98.6 [degF] Normal 37.0 [facility] Comment on above: Performed By: #### A FAB5 #### [facility] ([id number]) [address] [place] [address] Glucose [Mass/Vol] 117 mg/dL High 65-99 [facility] Comment on above: Performed By: #### A FAB5 #### [facility] ([id number]) [address] [place] [address] HCO3 (Bld) [Moles/Vol] 24.8 mmol/L Normal 22-26 [facility] Comment on above: Performed By: #### A FAB5 #### [facility] ([id number]) [address] [place] [address] Hematocrit (Bld) [Volume fraction] 31 % Low 39-49 [facility] Comment on above: Performed By: #### A FAB5 #### [facility] ([id number]) [address] [place] [address] Hemoglobin (Bld) [Mass/Vol] 10.2 g/dL Low 13.0-17.0 [facility] Comment on above: Performed By: #### A FAB5 #### [facility] ([id number]) [address] [place] [address] INSP. O2 CONC. 100 % Normal [facility] Comment on above: Performed By: #### A FAB5 #### [facility] ([id number]) [address] [place] [address] IONIZED CALCIUM 4.8 mg/dL Normal 4.5-5.3 [facility] Comment on above: Performed By: #### A FAB5 #### [facility] ([id number]) [address] [place] [address] Oxygen (Bld) [Partial pressure] 167 mm[Hg] High 80-100 [facility] Comment on above: Performed By: #### A FAB5 #### [facility] ([id number]) [address] [place] [address] Oxygen saturation in Blood 100.8 % Normal >90 [facility] Comment on above: Performed By: #### A FAB5 #### [facility] ([id number]) [address] [place] [address] PCO2 39.7 MMHG Normal 35-45 [facility] Comment on above: Performed By: #### A FAB5 #### [facility] ([id number]) [address] [place] [address] pH (Bld) 7.404 [pH] Normal 7.350-7.45 0 [facility] Comment on above: Performed By: #### A FAB5 #### [facility] ([id number]) [address] [place] [address] Potassium [Moles/Vol] 3.8 mmol/L Normal 3.5-5.0 [facility] Comment on above: Performed By: #### A FAB5 #### [facility] ([id number]) [address] [place] [address] SAMPLE SITE KECIA Normal [facility] Comment on above: Performed By: #### A FAB5 #### [facility] ([id number]) [address] [place] [address] SAMPLE TYPE Arterial Normal [facility] Comment on above: Performed By: #### A FAB5 #### [facility] ([id number]) [address] [place] [address] RAPID CARDIAC W/ NAon 2023 COURTNEY'S TEST Normal [facility] Comment on above: Performed By: #### P INR #### [facility] ([id number]) [address] [place] [address] Base excess Calc (Bld) [Moles/Vol] 0.2 mmol/L Normal 0.0-2.0 [facility] Comment on above: Performed By: #### P INR #### [facility] ([id number]) [address] [place] [address] Body temperature 98.6 [degF] Normal 37.0 [facility] Comment on above: Performed By: #### P INR #### [facility] ([id number]) [address] [place] [address] Glucose [Mass/Vol] 125 mg/dL High 65-99 [facility] Comment on above: Performed By: #### P INR #### [facility] ([id number]) [address] [place] [address] HCO3 (Bld) [Moles/Vol] 25.3 mmol/L Normal 22-26 [facility] Comment on above: Performed By: #### P INR #### [facility] ([id number]) [address] [place] [address] Hematocrit (Bld) [Volume fraction] 31 % Low 39-49 [facility] Comment on above: Performed By: #### P INR #### [facility] ([id number]) [address] [place] [address] Hemoglobin (Bld) [Mass/Vol] 10.0 g/dL Low 13.0-17.0 [facility] Comment on above: Performed By: #### P INR #### [facility] ([id number]) [address] [place] [address] INSP. O2 CONC. 50 % Normal [facility] Comment on above: Performed By: #### P INR #### [facility] ([id number]) [address] [place] [address] IONIZED CALCIUM 4.7 mg/dL Normal 4.5-5.3 [facility] Comment on above: Performed By: #### P INR #### [facility] ([id number]) [address] [place] [address] Oxygen (Bld) [Partial pressure] 131 mm[Hg] High 80-100 [facility] Comment on above: Performed By: #### P INR #### [facility] ([id number]) [address] [place] [address] Oxygen saturation in Blood 99.9 % Normal >90 [facility] Comment on above: Performed By: #### P INR #### [facility] ([id number]) [address] [place] [address] PCO2 42.7 MMHG Normal 35-45 [facility] Comment on above: Performed By: #### P INR #### [facility] ([id number]) [address] [place] [address] pH (Bld) 7.381 [pH] Normal 7.350-7.45 0 [facility] Comment on above: Performed By: #### P INR #### [facility] ([id number]) [address] [place] [address] Potassium [Moles/Vol] 3.7 mmol/L Normal 3.5-5.0 [facility] Comment on above: Performed By: #### P INR #### [facility] ([id number]) [address] [place] [address] SAMPLE SITE KECIA Normal [facility] Comment on above: Performed By: #### P INR #### [facility] ([id number]) [address] [facility] [address] [place] [address] SAMPLE TYPE Arterial Normal [facility] Comment on above: Performed By: #### P INR #### [facility] ([id number]) [address] [facility] [address] [place] [address] Sodium [Moles/Vol] 139 mmol/L Normal 134-146 [facility] Comment on above: Performed By: #### P INR #### [facility] ([id number]) [address] [facility] [address] [place] [address] aPTT Coag (PPP) [Time]on aPTT Coag (Bld) [Time] 30 s Normal 26-37 [facility] Comment on above: Performed By: #### P INR #### [facility] ([id number]) [address] [facility] [address] [place] [address] Glucose Glucometer (BldC) [M ass/Vol]on 11-07-2023 Glucose [Mass/Vol] 150 mg/dL High 65-99 [facility] Glucose [Mass/Vol] 58 mg/dL Low 65-99 [facility] POC [id number] 11-07-2023 Chloride [Moles/Vol] 98 mmol/L Normal 98-109 [facility] Comment on above: Performed By: #### I ELGBC #### [facility] ([id number]) [address] [place] [address] CO2 [Moles/Vol] 31 mmol/L Normal 22-32 [facility] Comment on above: Performed By: #### I ELGBC #### [facility] ([id number]) [address] [place] [address] Creatinine [Mass/Vol] 1.9 mg/dL High 0.7-1.2 [facility] Comment on above: Result Comment: METH OD TRACEABLE TO IDMS STANDARD Performed By: #### I [facility] #### [facility] ([id number]) [address] [place] [address] GFR/1.73 sq M.predicted among non-blacks MDRD (S/P/Bld) [Vol rate/Area] 40 mL/min/{1.73_m2} Low >59 [facility] Comment on above: Result Comment: Reported eGFR is based on the CKD-EPI 2020 equation that does not use a race coefficient. Performed By: #### I [facility] #### [facility] ([id number]) [address] [place] [address] Glucose [Mass/Vol] 72 mg/dL Normal 65-99 [facility] Comment on above: Performed By: #### I [facility] #### [facility] ([id number]) [address] [place] [address] Potassium [Moles/Vol] 3.6 mmol/L Normal 3.5-5.0 [facility] Comment on above: Performed By: #### I [facility] #### [facility] ([id number]) [address] [place] [address] Sodium [Moles/Vol] 139 mmol/L Normal 134-146 [facility] Comment on above: Performed By: #### I [facility] #### [facility] ([id number]) [address] [place] [address] Urea nitrogen [Mass/Vol] 31 mg/dL High 6-23 [facility] Comment on above: Performed By: #### I [facility] #### [facility] ([id number]) [address] [place] [address] PROTIME AND INRon 11-07-2023 INR Coag (PPP) [Relative time] 1.3 {INR} High 0.8-1.1 [facility] Comment on above: Performed By: #### P INR #### [facility] ([id number]) [address] [place] [address] PT Coag (PPP) [Time] 14.5 s High 9.8-13.2 [facility] Comment on above: Performed By: #### P INR #### [facility] ([id number]) [address] [place] [address] ECG 12 Leadon 10-24-2023 [facility] Work Phone: Consent for Treatmenton 10-04 Consent for Treatment [id number]#1.00TIFF Normal 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 Normal [facility] Comment on above: Result Comment: Elec [...] MD Transcribed by: HASEEB Technologist: TARAN [place] [facility] CHEMISTRYOrdered By: SYSTEM SYSTEM on 10-19-2023 Creatinine [...] 370 Contrast amount in ml's: [address] [facility] Consent for Treatmenton 10-03 Consent for Treatment [id number]#1.00TIFF Normal [facility] Creatinineon 10-19-2023 Creatinine [Mass/Vol] 1.6 mg/dL High 0.5-1.3 [facility] Comment on above: Performed By: #### 2 [id number] #### [facility] [address] [place] [address] Physician Orderon 10-19-2023 Physician Order [id number]#1.00TIFF Normal [facility] eGFRon 10-19-2023 eGFR 50 mL/min/1.73 m2 Low >=59 [facility] Comment on above: Order Comment: Order added by Discern Expert. Performed By: #### 1 [id number] #### [facility] [address] [place] [address] Outside Progress Noteon 10-03 Outside Progress Note [id number]#1.00TIFF Normal [facility] Physician Orderon 10-18-2023 Physician Order [id number]#1.00TIF F Normal [facility] Physician Order [id number]#1.00TIFF Normal [facility] Basophils Auto (Bld) [#/Vol] on 10-06-2023 Basophils (Bld) [#/Vol] 0.0 10 3/uL 0.0-0.1 [facility] Basophils/100 WBC Auto (Bld) on 10-06-2023 Basophils/100 WBC (Bld) 0.3 % 0.2-2.0 [facility] Eosinophils/100 WBC Auto (Bl d)on 10-06-2023 Eosinophils/100 WBC (Bld) 1.9 % 0.9-7.0 [facility] Erythrocyte distribution wid th Auto (RBC) [Ratio]on 10-06-2023 Erythrocyte distribution width (RBC) [Ratio] 19.9 % 11.0-15.0 [facility] Estimated glomerular filtrat ion rate (GFR) non- Americanon 10-06-2023 GFR/1.73 sq M.predicted among non-blacks MDRD (S/P/Bld) [Vol rate/Area] 42 mL/min/{1.73_m2} >=60 [facility] Globulin Calc (S) [Mass/Vol] on 10-06-2023 Globulin (S) [Mass/Vol] 4.3 g/dL [facility] Hematocrit Auto (Bld) [Volum e fraction]on 10-06-2023 Hematocrit (Bld) [Volume fraction] 28.3 % 42.0-54.0 [facility] Hemoglobin [Mass/volume] in Bloodon 10-06-2023 Hemoglobin (Bld) [Mass/Vol] 8.4 g/dL 14.0-18.0 [facility] Laboratory - Chemistry and C hemistry - challengeon 10-06-2023 Albumin [Mass/Vol] 2.1 g/dL 3.4-5.0 [facility] ALP [Catalytic activity/Vol] 133 U/L 46-116 [facility] ALT [Catalytic activity/Vol] 18 U/L 16-63 [facility] AST [Catalytic activity/Vol] 20 U/L 15-37 [facility] Bilirubin [Mass/Vol] 0.3 mg/dL 0.2-1.0 [facility] Calcium [Mass/Vol] 9.4 mg/dL 8.5-10.1 [facility] Chloride [Moles/Vol] 103 mmol/L 98-107 [facility] CO2 [Moles/Vol] 23.7 mmol/L 21.0-32.0 [facility] Creatinine [Mass/Vol] 1.67 mg/dL 0.70-1.30 [facility] GFR/1.73 sq M.predicted MDRD (S/P/Bld) [Vol rate/Area] 52 mL/min/{1.73_m2} >=60 [facility] Glucose [Mass/Vol] 91 mg/dL 74-106 [facility] Magnesium [Mass/Vol] 1.6 mg/dL 1.8-2.4 [facility] Potassium [Moles/Vol] 4.8 mmol/L 3.5-5.1 [facility] Protein [Mass/Vol] 6.4 g/dL 6.4-8.2 [facility] Sodium [Moles/Vol] 136 mmol/L 136-145 [facility] Urea nitrogen [Mass/Vol] 29.0 mg/dL 7.0-18.0 [facility] Urea nitrogen/Creatinine [Mass ratio] 17.4 mg/mg [facility] Laboratory - Hematology and Cell countson 10-06-2023 ESR (Bld) [Velocity] mm/h <=20 [facility] Immature granulocytes/100 WBC (Bld) 1.5 % 0.0-0.5 [facility] Leukocytes [#/volume] correc jorge for nucleated erythrocytes in Blood by Automated counon 10-06-2023 WBC corrected for nucl RBC Auto (Bld) [#/Vol] 11.6 10 3/uL 4.0-11.0 [facility] Lymphocytes Auto (Bld) [#/Vo l]on 10-06-2023 Lymphocytes (Bld) [#/Vol] 1.5 10 3/uL 1.2-3.8 [facility] Lymphocytes/100 WBC Auto (Bl d)on 10-06-2023 Lymphocytes/100 WBC (Bld) 12.9 % 20.5-60.0 [facility] MCH Auto (RBC) [Entitic mass ]on 10-06-2023 MCH (RBC) [Entitic mass] 22.5 pg 25.9-34.0 [facility] MCHC Auto (RBC) [Mass/Vol]on 10-06-2023 MCHC (RBC) [Mass/Vol] 29.7 g/dL 29.9-35.2 [facility] MCV Auto (RBC) [Entitic vol] on 10-06-2023 MCV (RBC) [Entitic vol] 75.9 fL 80.0-94.0 [facility] Monocytes Auto (Bld) [#/Vol] on 10-06-2023 Monocytes (Bld) [#/Vol] 1.3 10 3/uL 0.3-0.8 [facility] Monocytes/100 WBC Auto (Bld) on 10-06-2023 Monocytes/100 WBC (Bld) 10.9 % 1.7-12.0 [facility] Neutrophils Auto (Bld) [#/Vo l]on 10-06-2023 Neutrophils (Bld) [#/Vol] 8.4 10 3/uL 1.4-6.5 [facility] Neutrophils/100 WBC Auto (Bl d)on 10-06-2023 Neutrophils/100 WBC (Bld) 72.5 % 43.0-75.0 [facility] No Panel Informationon 10-05 Eosinophils # (Auto) 0.2 10 3/uL 0.0-0.7 [facility] Immature Granulocyte # (Auto) 0.17 10 3/uL 0.00-0.03 [facility] Platelet mean volume Auto (B ld) [Entitic vol]on 10-06-2023 Platelet mean volume (Bld) [Entitic vol] 10.3 fL 9.5-13.5 [facility] Platelets Auto (Bld) [#/Vol] on 10-06-2023 Platelets (Bld) [#/Vol] 233 10 3/uL 150-450 [facility] RBC Auto (Bld) [#/Vol]on RBC (Bld) [#/Vol] 3.73 10 6/uL 4.70-6.10 [facility] Serum or plasma albumin/glob ulin mass ratioon 10-06-2023 Albumin/Globulin [Mass ratio] 0.5 {ratio} [facility] Serum or plasma anion gap de terminationon 10-06-2023 Anion gap [Moles/Vol] 14.1 [facility] Basophils Auto (Bld) [#/Vol] on 10-05-2023 Basophils (Bld) [#/Vol] 0.1 10 3/uL 0.0-0.1 [facility] Basophils/100 WBC Auto (Bld) on 10-05-2023 Basophils/100 WBC (Bld) 0.6 % 0.2-2.0 [facility] Eosinophils/100 WBC Auto (Bl d)on 10-05-2023 Eosinophils/100 WBC (Bld) 3.3 % 0.9-7.0 [facility] Erythrocyte distribution wid th Auto (RBC) [Ratio]on 10-05-2023 Erythrocyte distribution width (RBC) [Ratio] 19.6 % 11.0-15.0 [facility] Estimated glomerular filtrat ion rate (GFR) non- Americanon 10-05-2023 GFR/1.73 sq M.predicted among non-blacks MDRD (S/P/Bld) [Vol rate/Area] 41 mL/min/{1.73_m2} >=60 [facility] Globulin Calc (S) [Mass/Vol] on 10-05-2023 Globulin (S) [Mass/Vol] 4.7 g/dL [facility] Hematocrit Auto (Bld) [Volum e fraction]on 10-05-2023 Hematocrit (Bld) [Volume fraction] 29.9 % 42.0-54.0 [facility] Hemoglobin [Mass/volume] in Bloodon 10-05-2023 Hemoglobin (Bld) [Mass/Vol] 9.0 g/dL 14.0-18.0 [facility] Guy 10-05-2023 L Specimen: [id number] Received: 10/06/23 Status: COLTON Req Num: [id number] Spec Type: Surgical Subm Dr: Paula Elias DPM, MS Tissues: A DIGIT AMPUTATION (RT 2,3,4 AND 5 METATARSAL AM) Procedures: HE/6, Gross/Micro L4, Decalcification Age/ Patient Sex Location Account Attending Physician Solomon Feldman SR 58/M LABELL [id number] Paula Elias DPM, MS SPEC NUM: [id number] RECD: 10/06/23 STATUS: COLTON REQ NUM: [id number] SHAKIRA: 10/05/[address]: Paula Elias DPM, MS ENTERED: 10/06/[address]: Jericho Carey SPEC TYPE: Surgical DEPT: [...] specimen demonstrates firm, yellow spongy bone matrix. Auto Transmission Specialist sections are submitted as follows: A1: Skin and soft tissue margins A2: Second digit, bone margin; #1 proximal phalangeal margin (following decal) A3: Third digit, bone margin; #2 proximal phalangeal margin (following decal) A4: Fourth digit, bone margin; #3 proximal phalangeal margin (following decal) A5: Fifth digit, bone margin; #4 proximal phalangeal margin (following decal) Specimen: [id number] Received: 10/06/23 Status: COLTON Nath Num: [id number] Spec Type: Surgical Subm Dr: Paula Elias,LINDSEY, MS Tissues: A DIGIT AMPUTATION (RT 2,3,4 AND 5 METATARSAL AM) Procedures: HE/6, Gross/Micro L4, Decalcification Patient: Solomon Feldman SR [id number] (Continued) Specimen: [id number] Received: 10/06/23 (Continued) Gross Description (Continued) Signed (signature on file) Padmini Linn MD 10/10/23 1542 Specimen: [id number] Received: 10/06/23 Status: COLTON Nath Num: [id number] Spec Type: Surgical Subm Dr: Paula Elias,LINDSEY, MS Tissues: A DIGIT AMPUTATION (RT 2,3,4 AND 5 METATARSAL AM) Procedures: /6, Gross/Micro L4, Decalcification Patient: FeldmanSolomon SR [id number] (Continued) Specimen: [id number] Received: 10/06/23 (Continued) Gross Description (Continued) A6: Full-thickness section to include skin, underlying soft tissue and bone (following decal) Clinical history: None given CPT Codes 63524 FOREFOOT AND DIGITS Specimen: [id number] Received: 10/06/23 Status: COLTON Nath Num: [id number] Spec Type: Surgical Subm Dr: Paula Elias,LINDSEY, MS Tissues: A DIGIT AMPUTATION (RT 2,3,4 AND 5 METATARSAL AM) Procedures: HE/Ramirez, Gross/Micro L4, Decalcification Patient: Solomon Feldman SR [id number] (Continued) Signed (signature on file) Padmini Linn MD 10/10/23 1542 Normal [facility] Laboratory - Chemistry and C hemistry - challengeon 10-05-2023 Albumin [Mass/Vol] 2.2 g/dL 3.4-5.0 [facility] ALP [Catalytic activity/Vol] 140 U/L 46-116 [facility] ALT [Catalytic activity/Vol] 18 U/L 16-63 [facility] AST [Catalytic activity/Vol] 22 U/L 15-37 [facility] Bilirubin [Mass/Vol] 0.5 mg/dL 0.2-1.0 [facility] Calcium [Mass/Vol] 9.2 mg/dL 8.5-10.1 [facility] Chloride [Moles/Vol] 100 mmol/L 98-107 [facility] CO2 [Moles/Vol] 22.6 mmol/L 21.0-32.0 [facility] Creatinine [Mass/Vol] 1.74 mg/dL 0.70-1.30 [facility] GFR/1.73 sq M.predicted MDRD (S/P/Bld) [Vol rate/Area] 49 mL/min/{1.73_m2} >=60 [facility] Glucose [Mass/Vol] 162 mg/dL 74-106 [facility] Magnesium [Mass/Vol] 1.7 mg/dL 1.8-2.4 [facility] Potassium [Moles/Vol] 5.3 mmol/L 3.5-5.1 [facility] Protein [Mass/Vol] 6.9 g/dL 6.4-8.2 [facility] Sodium [Moles/Vol] 133 mmol/L 136-145 [facility] Urea nitrogen [Mass/Vol] 30.0 mg/dL 7.0-18.0 [facility] Urea nitrogen/Creatinine [Mass ratio] 17.2 mg/mg [facility] Laboratory - Hematology and Cell countson 10-05-2023 ESR (Bld) [Velocity] 130 mm/h <=20 [facility] Immature granulocytes/100 WBC (Bld) 1.3 % 0.0-0.5 [facility] Leukocytes [#/volume] correc jorge for nucleated erythrocytes in Blood by Automated counon 10-05-2023 WBC corrected for nucl RBC Auto (Bld) [#/Vol] 12.6 10 3/uL 4.0-11.0 [facility] Lymphocytes Auto (Bld) [#/Vo l]on 10-05-2023 Lymphocytes (Bld) [#/Vol] 1.3 10 3/uL 1.2-3.8 [facility] Lymphocytes/100 WBC Auto (Bl d)on 10-05-2023 Lymphocytes/100 WBC (Bld) 10.1 % 20.5-60.0 [facility] MCH Auto (RBC) [Entitic mass ]on 10-05-2023 MCH (RBC) [Entitic mass] 22.7 pg 25.9-34.0 [facility] MCHC Auto (RBC) [Mass/Vol]on 10-05-2023 MCHC (RBC) [Mass/Vol] 30.1 g/dL 29.9-35.2 [facility] MCV Auto (RBC) [Entitic vol] on 10-05-2023 MCV (RBC) [Entitic vol] 75.3 fL 80.0-94.0 [facility] Monocytes Auto (Bld) [#/Vol] on 10-05-2023 Monocytes (Bld) [#/Vol] 1.4 10 3/uL 0.3-0.8 [facility] Monocytes/100 WBC Auto (Bld) on 10-05-2023 Monocytes/100 WBC (Bld) 10.9 % 1.7-12.0 [facility] Neutrophils Auto (Bld) [#/Vo l]on 10-05-2023 Neutrophils (Bld) [#/Vol] 9.3 10 3/uL 1.4-6.5 [facility] Neutrophils/100 WBC Auto (Bl d)on 10-05-2023 Neutrophils/100 WBC (Bld) 73.8 % 43.0-75.0 [facility] No Panel Informationon 10-04 Eosinophils # (Auto) 0.4 10 3/uL 0.0-0.7 [facility] Immature Granulocyte # (Auto) 0.16 10 3/uL 0.00-0.03 [facility] Platelet mean volume Auto (B ld) [Entitic vol]on 10-05-2023 Platelet mean volume (Bld) [Entitic vol] 11.3 fL 9.5-13.5 [facility] Platelets Auto (Bld) [#/Vol] on 10-05-2023 Platelets (Bld) [#/Vol] 203 10 3/uL 150-450 [facility] RBC Auto (Bld) [#/Vol]on RBC (Bld) [#/Vol] 3.97 10 6/uL 4.70-6.10 [facility] Serum or plasma albumin/glob ulin mass ratioon 10-05-2023 Albumin/Globulin [Mass ratio] 0.5 {ratio} [facility] Serum or plasma anion gap de terminationon 10-05-2023 Anion gap [Moles/Vol] 15.7 mmol[facility]L [facility] Basophils Auto (Bld) [#/Vol] on 10-04-2023 Basophils (Bld) [#/Vol] 0.1 10 3/uL 0.0-0.1 [facility] Basophils/100 WBC Auto (Bld) on 10-04-2023 Basophils/100 WBC (Bld) 0.5 % 0.2-2.0 [facility] Eosinophils/100 WBC Auto (Bl d)on 10-04-2023 Eosinophils/100 WBC (Bld) 3.6 % 0.9-7.0 [facility] Erythrocyte distribution wid th Auto (RBC) [Ratio]on 10-04-2023 Erythrocyte distribution width (RBC) [Ratio] 19.6 % 11.0-15.0 [facility] Estimated glomerular filtrat ion rate (GFR) non- Americanon 10-04-2023 GFR/1.73 sq M.predicted among non-blacks MDRD (S/P/Bld) [Vol rate/Area] 44 mL/min/{1.73_m2} >=60 [facility] Globulin Calc (S) [Mass/Vol] on 10-04-2023 Globulin (S) [Mass/Vol] 4.3 g/dL [facility] Hematocrit Auto (Bld) [Volum e fraction]on 10-04-2023 Hematocrit (Bld) [Volume fraction] 26.8 % 42.0-54.0 [facility] Hemoglobin [Mass/volume] in Bloodon 10-04-2023 Hemoglobin (Bld) [Mass/Vol] 7.9 g/dL 14.0-18.0 [facility] Laboratory - Chemistry and C hemistry - challengeon 10-04-2023 Albumin [Mass/Vol] 1.9 g/dL 3.4-5.0 [facility] ALP [Catalytic activity/Vol] 135 U/L 46-116 [facility] ALT [Catalytic activity/Vol] 16 U/L 16-63 [facility] AST [Catalytic activity/Vol] 19 U/L 15-37 [facility] Bilirubin [Mass/Vol] 0.4 mg/dL 0.2-1.0 [facility] Calcium [Mass/Vol] 7.8 mg/dL 8.5-10.1 [facility] Chloride [Moles/Vol] 102 mmol/L 98-107 [facility] CO2 [Moles/Vol] 25.0 mmol/L 21.0-32.0 [facility] Creatinine [Mass/Vol] 1.61 mg/dL 0.70-1.30 [facility] GFR/1.73 sq M.predicted MDRD (S/P/Bld) [Vol rate/Area] 54 mL/min/{1.73_m2} >=60 [facility] Glucose [Mass/Vol] 136 mg/dL 74-106 [facility] Magnesium [Mass/Vol] 1.7 mg/dL 1.8-2.4 [facility] Potassium [Moles/Vol] 5.1 mmol/L 3.5-5.1 [facility] Protein [Mass/Vol] 6.2 g/dL 6.4-8.2 [facility] Sodium [Moles/Vol] 134 mmol/L 136-145 [facility] Urea nitrogen [Mass/Vol] 25.0 mg/dL 7.0-18.0 [facility] Urea nitrogen/Creatinine [Mass ratio] 15.5 mg/mg [facility] Laboratory - Hematology and Cell countson 10-04-2023 ESR (Bld) [Velocity] 117 mm/h <=20 [facility] Immature granulocytes/100 WBC (Bld) 0.9 % 0.0-0.5 [facility] Leukocytes [#/volume] correc jorge for nucleated erythrocytes in Blood by Automated counon 10-04-2023 WBC corrected for nucl RBC Auto (Bld) [#/Vol] 11.5 10 3/uL 4.0-11.0 [facility] Lymphocytes Auto (Bld) [#/Vo l]on 10-04-2023 Lymphocytes (Bld) [#/Vol] 1.3 10 3/uL 1.2-3.8 [facility] Lymphocytes/100 WBC Auto (Bl d)on 10-04-2023 Lymphocytes/100 WBC (Bld) 10.9 % 20.5-60.0 [facility] MCH Auto (RBC) [Entitic mass ]on 10-04-2023 MCH (RBC) [Entitic mass] 22.4 pg 25.9-34.0 [facility] MCHC Auto (RBC) [Mass/Vol]on 10-04-2023 MCHC (RBC) [Mass/Vol] 29.5 g/dL 29.9-35.2 [facility] MCV Auto (RBC) [Entitic vol] on 10-04-2023 MCV (RBC) [Entitic vol] 75.9 fL 80.0-94.0 [facility] Monocytes Auto (Bld) [#/Vol] on 10-04-2023 Monocytes (Bld) [#/Vol] 1.4 10 3/uL 0.3-0.8 [facility] Monocytes/100 WBC Auto (Bld) on 10-04-2023 Monocytes/100 WBC (Bld) 12.4 % 1.7-12.0 [facility] Neutrophils Auto (Bld) [#/Vo l]on 10-04-2023 Neutrophils (Bld) [#/Vol] 8.3 10 3/uL 1.4-6.5 [facility] Neutrophils/100 WBC Auto (Bl d)on 10-04-2023 Neutrophils/100 WBC (Bld) 71.7 % 43.0-75.0 [facility] No Panel Informationon 10-03 Eosinophils # (Auto) 0.4 10 3/uL 0.0-0.7 [facility] Immature Granulocyte # (Auto) 0.10 10 3/uL 0.00-0.03 [facility] Platelet mean volume Auto (B ld) [Entitic vol]on 10-04-2023 Platelet mean volume (Bld) [Entitic vol] 11.5 fL 9.5-13.5 [facility] Platelets Auto (Bld) [#/Vol] on 10-04-2023 Platelets (Bld) [#/Vol] 154 10 3/uL 150-450 [facility] RBC Auto (Bld) [#/Vol]on RBC (Bld) [#/Vol] 3.53 10 6/uL 4.70-6.10 [facility] Serum or plasma albumin/glob ulin mass ratioon 10-04-2023 Albumin/Globulin [Mass ratio] 0.4 {ratio} [facility] Serum or plasma anion gap de terminationon 10-04-2023 Anion gap [Moles/Vol] 12.1 mmol/L Fi [facility] Basophils Auto (Bld) [#/Vol] on 10-03-2023 Basophils (Bld) [#/Vol] 0.1 10 3/uL 0.0-0.1 [facility] Basophils/100 WBC Auto (Bld) on 10-03-2023 Basophils/100 WBC (Bld) 0.7 % 0.2-2.0 [facility] Eosinophils/100 WBC Auto (Bl d)on 10-03-2023 Eosinophils/100 WBC (Bld) 2.7 % 0.9-7.0 [facility] Erythrocyte distribution wid th Auto (RBC) [Ratio]on 10-03-2023 Erythrocyte distribution width (RBC) [Ratio] 19.2 % 11.0-15.0 [facility] Estimated glomerular filtrat ion rate (GFR) non- Americanon 10-03-2023 GFR/1.73 sq M.predicted among non-blacks MDRD (S/P/Bld) [Vol rate/Area] 46 mL/min/{1.73_m2} >=60 [facility] Globulin Calc (S) [Mass/Vol] on 10-03-2023 Globulin (S) [Mass/Vol] 4.1 g/dL [facility] Hematocrit Auto (Bld) [Volum e fraction]on 10-03-2023 Hematocrit (Bld) [Volume fraction] 26.4 % 42.0-54.0 [facility] Hemoglobin [Mass/volume] in Bloodon 10-03-2023 Hemoglobin (Bld) [Mass/Vol] 8.1 g/dL 14.0-18.0 [facility] Laboratory - Chemistry and C hemistry - challengeon 10-03-2023 Albumin [Mass/Vol] 1.9 g/dL 3.4-5.0 [facility] ALP [Catalytic activity/Vol] 140 U/L 46-116 [facility] ALT [Catalytic activity/Vol] 17 U/L 16-63 [facility] AST [Catalytic activity/Vol] 21 U/L 15-37 [facility] Bilirubin [Mass/Vol] 0.3 mg/dL 0.2-1.0 [facility] Calcium [Mass/Vol] 6.7 mg/dL 8.5-10.1 [facility] Chloride [Moles/Vol] 101 mmol/L 98-107 [facility] CO2 [Moles/Vol] 23.9 mmol/L 21.0-32.0 [facility] Creatinine [Mass/Vol] 1.57 mg/dL 0.70-1.30 [facility] GFR/1.73 sq M.predicted MDRD (S/P/Bld) [Vol rate/Area] 55 mL/min/{1.73_m2} >=60 [facility] Glucose [Mass/Vol] 142 mg/dL 74-106 [facility] Magnesium [Mass/Vol] 1.3 mg/dL 1.8-2.4 [facility] Potassium [Moles/Vol] 4.8 mmol/L 3.5-5.1 [facility] Protein [Mass/Vol] 6.0 g/dL 6.4-8.2 [facility] Sodium [Moles/Vol] 134 mmol/L 136-145 [facility] Urea nitrogen [Mass/Vol] 23.0 mg/dL 7.0-18.0 [facility] Urea nitrogen/Creatinine [Mass ratio] 14.6 mg/mg [facility] Laboratory - Hematology and Cell countson 10-03-2023 ESR (Bld) [Velocity] mm/h <=20 [facility] Immature granulocytes/100 WBC (Bld) 1.0 % 0.0-0.5 [facility] Leukocytes [#/volume] correc jorge for nucleated erythrocytes in Blood by Automated counon 10-03-2023 WBC corrected for nucl RBC Auto (Bld) [#/Vol] 11.6 10 3/uL 4.0-11.0 [facility] Lymphocytes Auto (Bld) [#/Vo l]on 10-03-2023 Lymphocytes (Bld) [#/Vol] 1.4 10 3/uL 1.2-3.8 [facility] Lymphocytes/100 WBC Auto (Bl d)on 10-03-2023 Lymphocytes/100 WBC (Bld) 12.1 % 20.5-60.0 [facility] MCH Auto (RBC) [Entitic mass ]on 10-03-2023 MCH (RBC) [Entitic mass] 23.2 pg 25.9-34.0 [facility] MCHC Auto (RBC) [Mass/Vol]on 10-03-2023 MCHC (RBC) [Mass/Vol] 30.7 g/dL 29.9-35.2 [facility] MCV Auto (RBC) [Entitic vol] on 10-03-2023 MCV (RBC) [Entitic vol] 75.6 fL 80.0-94.0 [facility] Monocytes Auto (Bld) [#/Vol] on 10-03-2023 Monocytes (Bld) [#/Vol] 1.3 10 3/uL 0.3-0.8 [facility] Monocytes/100 WBC Auto (Bld) on 10-03-2023 Monocytes/100 WBC (Bld) 10.8 % 1.7-12.0 [facility] Neutrophils Auto (Bld) [#/Vo l]on 10-03-2023 Neutrophils (Bld) [#/Vol] 8.5 10 3/uL 1.4-6.5 [facility] Neutrophils/100 WBC Auto (Bl d)on 10-03-2023 Neutrophils/100 WBC (Bld) 72.7 % 43.0-75.0 [facility] No Panel Informationon 10-02 Eosinophils # (Auto) 0.3 10 3/uL 0.0-0.7 [facility] Immature Granulocyte # (Auto) 0.12 10 3/uL 0.00-0.03 [facility] Platelet mean volume Auto (B ld) [Entitic vol]on 10-03-2023 Platelet mean volume (Bld) [Entitic vol] 11.3 fL 9.5-13.5 [facility] Platelets Auto (Bld) [#/Vol] on 10-03-2023 Platelets (Bld) [#/Vol] 141 10 3/uL 150-450 [facility] RBC Auto (Bld) [#/Vol]on RBC (Bld) [#/Vol] 3.49 10 6/uL 4.70-6.10 [facility] Serum or plasma albumin/glob ulin mass ratioon 10-03-2023 Albumin/Globulin [Mass ratio] 0.5 {ratio} [facility] Serum or plasma anion gap de terminationon 10-03-2023 Anion gap [Moles/Vol] 13.9 mmol/L Fi [facility] Basophils Auto (Bld) [#/Vol] on 10-02-2023 Basophils (Bld) [#/Vol] 0.0 10 3/uL 0.0-0.1 [facility] Basophils/100 WBC Auto (Bld) on 10-02-2023 Basophils/100 WBC (Bld) 0.4 % 0.2-2.0 [facility] Eosinophils/100 WBC Auto (Bl d)on 10-02-2023 Eosinophils/100 WBC (Bld) 2.2 % 0.9-7.0 [facility] Erythrocyte distribution wid th Auto (RBC) [Ratio]on 10-02-2023 Erythrocyte distribution width (RBC) [Ratio] 19.3 % 11.0-15.0 [facility] Estimated glomerular filtrat ion rate (GFR) non- Americanon 10-02-2023 GFR/1.73 sq M.predicted among non-blacks MDRD (S/P/Bld) [Vol rate/Area] 41 mL/min/{1.73_m2} >=60 [facility] Globulin Calc (S) [Mass/Vol] on 10-02-2023 Globulin (S) [Mass/Vol] 4.2 g/dL [facility] Hematocrit Auto (Bld) [Volum e fraction]on 10-02-2023 Hematocrit (Bld) [Volume fraction] 26.1 % 42.0-54.0 [facility] Hemoglobin [Mass/volume] in Bloodon 10-02-2023 Hemoglobin (Bld) [Mass/Vol] 7.8 g/dL 14.0-18.0 [facility] Guy 10-02-2023 L Specimen: [id number] Received: 10/03/23 Status: COLTON Nath Num: [id number] Spec Type: Surgical Subm Dr: Paula Elias DPM, MS Tissues: A DIGIT AMPUTATION (FIRST METATARSAL RT FOOT) Procedures: HE/2, Gross/Micro L4, Decalcification Age/ Patient Sex Location Account Attending Physician Solomon Feldman SR 58/M LABELL [id number] Paula Elias DPM, MS SPEC NUM: [id number] RECD: 10/03/23 STATUS: COLTON YAP NUM: [id number] SHAKIRA: 10/02/[address]: Paula Elias DPM, MS ENTERED: 10/03/[address] [facility] [address]: Jericho Carey SPEC TYPE: Surgical [...] firm yellow- pink spongy bone matrix. 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 Clinical history: Right diabetic foot infection CPT Codes 35574 Specimen: [id number] Received: 10/03/23 Status: COLTON Nath Num: [id number] Spec Type: Surgical Subm Dr: Paula Elias,LINDSEY, MS Tissues: A DIGIT AMPUTATION (FIRST METATARSAL RT FOOT) Procedures: HE/Karli, Gross/Micro L4, Decalcification Patient: Solomon Feldman SR [id number] (Continued) Signed (signature on file) Padmini Linn MD 10/05/23 1426 Normal [facility] Laboratory - Chemistry and C hemistry - challengeon 10-02-2023 Albumin [Mass/Vol] 2.1 g/dL 3.4-5.0 [facility] ALP [Catalytic activity/Vol] 131 U/L 46-116 [facility] ALT [Catalytic activity/Vol] 17 U/L 16-63 [facility] AST [Catalytic activity/Vol] 13 U/L 15-37 [facility] Bilirubin [Mass/Vol] 0.3 mg/dL 0.2-1.0 [facility] Calcium [Mass/Vol] 6.6 mg/dL 8.5-10.1 [facility] Chloride [Moles/Vol] 105 mmol/L 98-107 [facility] CO2 [Moles/Vol] 24.3 mmol/L 21.0-32.0 [facility] Creatinine [Mass/Vol] 1.72 mg/dL 0.70-1.30 [facility] GFR/1.73 sq M.predicted MDRD (S/P/Bld) [Vol rate/Area] 50 mL/min/{1.73_m2} >=60 [facility] Glucose [Mass/Vol] 156 mg/dL 74-106 [facility] Magnesium [Mass/Vol] 1.5 mg/dL 1.8-2.4 [facility] Potassium [Moles/Vol] 4.0 mmol/L 3.5-5.1 [facility] Protein [Mass/Vol] 6.3 g/dL 6.4-8.2 [facility] Sodium [Moles/Vol] 139 mmol/L 136-145 [facility] Urea nitrogen [Mass/Vol] 27.0 mg/dL 7.0-18.0 [facility] Urea nitrogen/Creatinine [Mass ratio] 15.7 mg/mg [facility] Laboratory - Hematology and Cell countson 10-02-2023 Immature granulocytes/100 WBC (Bld) 0.4 % 0.0-0.5 [facility] ESR (Bld) [Velocity] 110 mm/h <=20 [facility] Laboratory - Microbiology an d Antimicrobial susceptibilityOrdered By: Truman Bryant on 10-02-2023 Microscopic observation Gram stain Nom (Unsp spec) [facility] Leukocytes [#/volume] correc jorge for nucleated erythrocytes in Blood by Automated counon 10-02-2023 WBC corrected for nucl RBC Auto (Bld) [#/Vol] 8.5 10 3/uL 4.0-11.0 [facility] Lymphocytes Auto (Bld) [#/Vo l]on 10-02-2023 Lymphocytes (Bld) [#/Vol] 1.5 10 3/uL 1.2-3.8 [facility] Lymphocytes/100 WBC Auto (Bl d)on 10-02-2023 Lymphocytes/100 WBC (Bld) 17.3 % 20.5-60.0 [facility] MCH Auto (RBC) [Entitic mass ]on 10-02-2023 MCH (RBC) [Entitic mass] 22.5 pg 25.9-34.0 [facility] MCHC Auto (RBC) [Mass/Vol]on 10-02-2023 MCHC (RBC) [Mass/Vol] 29.9 g/dL 29.9-35.2 [facility] MCV Auto (RBC) [Entitic vol] on 10-02-2023 MCV (RBC) [Entitic vol] 75.2 fL 80.0-94.0 [facility] Monocytes Auto (Bld) [#/Vol] on 10-02-2023 Monocytes (Bld) [#/Vol] 0.8 10 3/uL 0.3-0.8 [facility] Monocytes/100 WBC Auto (Bld) on 10-02-2023 Monocytes/100 WBC (Bld) 9.1 % 1.7-12.0 [facility] Neutrophils Auto (Bld) [#/Vo l]on 10-02-2023 Neutrophils (Bld) [#/Vol] 6.0 10 3/uL 1.4-6.5 [facility] Neutrophils/100 WBC Auto (Bl d)on 10-02-2023 Neutrophils/100 WBC (Bld) 70.6 % 43.0-75.0 [facility] No Panel Informationon 10-01 Eosinophils # (Auto) 0.2 10 3/uL 0.0-0.7 Fir [facility] Immature Granulocyte # (Auto) 0.03 10 3/uL 0.00-0.03 [facility] Fungal Smear Result [facility] Miscellaneous Test Comment See comment [facility] Comment on above: Specimen Source: JONO TRT - Foot Right - Foot Rt - 604.000 No Panel InformationOrdered By: Truman Bryant on 10-02-2023 Tissue Culture [facility] No Panel InformationOrdered By: Paula Elias on 10-02-2023 Acid Fast Smear [facility] AFB Specimen Processing [facility] Platelet mean volume Auto (B ld) [Entitic vol]on 10-02-2023 Platelet mean volume (Bld) [Entitic vol] 10.6 fL 9.5-13.5 [facility] Platelets Auto (Bld) [#/Vol] on 10-02-2023 Platelets (Bld) [#/Vol] 142 10 3/uL 150-450 [facility] RBC Auto (Bld) [#/Vol]on RBC (Bld) [#/Vol] 3.47 10 6/uL 4.70-6.10 [facility] Serum or plasma albumin/glob ulin mass ratioon 10-02-2023 Albumin/Globulin [Mass ratio] 0.5 {ratio} [facility] Serum or plasma anion gap de terminationon 10-02-2023 Anion gap [Moles/Vol] 13.7 mmol/[facility] Auto (Bld) [#/Vol] on 10-01-2023 Basophils (Bld) [#/Vol] 0.0 10 3/uL 0.0-0.1 [facility] Basophils/100 WBC Auto (Bld) on 10-01-2023 Basophils/100 WBC (Bld) 0.4 % 0.2-2.0 [facility] Eosinophils/100 WBC Auto (Bl d)on 10-01-2023 Eosinophils/100 WBC (Bld) 1.7 % 0.9-7.0 [facility] Erythrocyte distribution wid th Auto (RBC) [Ratio]on 10-01-2023 Erythrocyte distribution width (RBC) [Ratio] 18.5 % 11.0-15.0 [facility] Estimated glomerular filtrat ion rate (GFR) non- Americanon 10-01-2023 GFR/1.73 sq M.predicted among non-blacks MDRD (S/P/Bld) [Vol rate/Area] 27 mL/min/{1.73_m2} >=60 [facility] Globulin Calc (S) [Mass/Vol] on 10-01-2023 Globulin (S) [Mass/Vol] 4.0 g/dL [facility] Hematocrit Auto (Bld) [Volum e fraction]on 10-01-2023 Hematocrit (Bld) [Volume fraction] 26.5 % 42.0-54.0 [facility] Hemoglobin [Mass/volume] in Bloodon 10-01-2023 Hemoglobin (Bld) [Mass/Vol] 8.0 g/dL 14.0-18.0 [facility] Laboratory - Chemistry and C hemistry - challengeon 10-01-2023 Lactate [Moles/Vol] 1.8 mmol/L 0.4-2.0 [facility] Albumin [Mass/Vol] 1.9 g/dL 3.4-5.0 [facility] ALP [Catalytic activity/Vol] 113 U/L 46-116 [facility] ALT [Catalytic activity/Vol] 17 U/L 16-63 [facility] AST [Catalytic activity/Vol] 14 U/L 15-37 [facility] Bilirubin [Mass/Vol] 0.3 mg/dL 0.2-1.0 [facility] Calcium [Mass/Vol] 5.7 mg/dL 8.5-10.1 [facility] Comment on above: RESULTS CALLED TO Patricio OlguinRN)@BY SKY AndersonT at 0619 Chloride [Moles/Vol] 102 mmol/L 98-107 [facility] CO2 [Moles/Vol] 20.4 mmol/L 21.0-32.0 [facility] Creatinine [Mass/Vol] 2.46 mg/dL 0.70-1.30 [facility] GFR/1.73 sq M.predicted MDRD (S/P/Bld) [Vol rate/Area] 33 mL/min/{1.73_m2} >=60 [facility] Glucose [Mass/Vol] 67 mg/dL 74-106 [facility] Magnesium [Mass/Vol] 0.8 mg/dL 1.8-2.4 [facility] Comment on above: RESULTS CALLED TO Patricio FontaineRN)@BY SOFIYA Way at 0601 Potassium [Moles/Vol] 3.1 mmol/L 3.5-5.1 [facility] Protein [Mass/Vol] 5.9 g/dL 6.4-8.2 [facility] Sodium [Moles/Vol] 138 mmol/L 136-145 [facility] Urea nitrogen [Mass/Vol] 28.0 mg/dL 7.0-18.0 [facility] Urea nitrogen/Creatinine [Mass ratio] 11.4 mg/mg [facility] Laboratory - Hematology and Cell countson 10-01-2023 ESR (Bld) [Velocity] 96 mm/h <=20 [facility] Immature granulocytes/100 WBC (Bld) 0.6 % 0.0-0.5 [facility] Leukocytes [#/volume] correc jorge for nucleated erythrocytes in Blood by Automated counon 10-01-2023 WBC corrected for nucl RBC Auto (Bld) [#/Vol] 10.0 10 3/uL 4.0-11.0 [facility] Lymphocytes Auto (Bld) [#/Vo l]on 10-01-2023 Lymphocytes (Bld) [#/Vol] 1.3 10 3/uL 1.2-3.8 [facility] Lymphocytes/100 WBC Auto (Bl d)on 10-01-2023 Lymphocytes/100 WBC (Bld) 12.8 % 20.5-60.0 [facility] MCH Auto (RBC) [Entitic mass ]on 10-01-2023 MCH (RBC) [Entitic mass] 22.4 pg 25.9-34.0 [facility] MCHC Auto (RBC) [Mass/Vol]on 10-01-2023 MCHC (RBC) [Mass/Vol] 30.2 g/dL 29.9-35.2 [facility] MCV Auto (RBC) [Entitic vol] on 10-01-2023 MCV (RBC) [Entitic vol] 74.2 fL 80.0-94.0 [facility] Monocytes Auto (Bld) [#/Vol] on 10-01-2023 Monocytes (Bld) [#/Vol] 0.7 10 3/uL 0.3-0.8 [facility] Monocytes/100 WBC Auto (Bld) on 10-01-2023 Monocytes/100 WBC (Bld) 6.9 % 1.7-12.0 [facility] Neutrophils Auto (Bld) [#/Vo l]on 10-01-2023 Neutrophils (Bld) [#/Vol] 7.8 10 3/uL 1.4-6.5 [facility] Neutrophils/100 WBC Auto (Bl d)on 10-01-2023 Neutrophils/100 WBC (Bld) 77.6 % 43.0-75.0 [facility] No Panel Informationon 09-30 C-Reactive Protein, Quantitative 10.58 mg/dL <=0.50 [facility] Eosinophils # (Auto) 0.2 10 3/uL 0.0-0.7 [facility] Immature Granulocyte # (Auto) 0.06 10 3/uL 0.00-0.03 [facility] Troponin I High Sensitivity 8.3 pg/mL 4.0-76.1 [facility] Comment on above: CUT-OFF POINTS HAVE BEEN [...] Blood Partial Pressure CO2 30.4 mm[Hg] 40.0-52.0 [facility] Venous Blood pH 7.421 7.330-7.43 0 [facility] Platelet mean volume Auto (B ld) [Entitic vol]on 10-01-2023 Platelet mean volume (Bld) [Entitic vol] 11.2 fL 9.5-13.5 [facility] Platelets Auto (Bld) [#/Vol] on 10-01-2023 Platelets (Bld) [#/Vol] 164 10 3/uL 150-450 [facility] RBC Auto (Bld) [#/Vol]on RBC (Bld) [#/Vol] 3.57 10 6/uL 4.70-6.10 [facility] Serum or plasma albumin/glob ulin mass ratioon 10-01-2023 Albumin/Globulin [Mass ratio] 0.5 {ratio} [facility] Serum or plasma anion gap de terminationon 10-01-2023 Anion gap [Moles/Vol] 18.7 mmol/[facility] Automated epithelial cells c ount in urine sediment (number/area)on 09-30-2023 Epithelial cells Auto (Urine sed) [#/Area] NONE SEEN #/LPF NONE/RARE [facility] Automated leukocytes count i n urine sediment (number/area)on 09-30-2023 WBC Auto (Urine sed) [#/Area] NONE SEEN #/HPF 0-2 [facility] Automated urine specific gra vity by refractometryon 09-30-2023 Specific gravity Refractometry automated (U) [Rel density] <=1.005 1.005-1.02 5 [facility] Basophils Auto (Bld) [#/Vol] on 09-30-2023 Basophils (Bld) [#/Vol] 0.1 10 3/uL 0.0-0.1 [facility] Basophils/100 WBC Auto (Bld) on 09-30-2023 Basophils/100 WBC (Bld) 0.4 % 0.2-2.0 [facility] Bilirubin Auto test strip (U ) [Mass/Vol]on 09-30-2023 Bilirubin (U) [Mass/Vol] Negative NEGATIVE [facility] Casts typing in urine sedime nt by light microscopyon 09-30-2023 Casts LM Nom (Urine sed) NONE SEEN #/LPF NONE SEEN [facility] Color Auto (U)on 09-30-2023 Color (U) LT. YELLOW YELLOW [facility] Eosinophils/100 WBC Auto (Bl d)on 09-30-2023 Eosinophils/100 WBC (Bld) 1.4 % 0.9-7.0 [facility] Erythrocyte distribution wid th Auto (RBC) [Ratio]on 09-30-2023 Erythrocyte distribution width (RBC) [Ratio] 19.0 % 11.0-15.0 [facility] Estimated glomerular filtrat ion rate (GFR) non- Americanon 09-30-2023 GFR/1.73 sq M.predicted among non-blacks MDRD (S/P/Bld) [Vol rate/Area] 19 mL/min/{1.73_m2} >=60 [facility] Globulin Calc (S) [Mass/Vol] on 09-30-2023 Globulin (S) [Mass/Vol] 4.8 g/dL [facility] Hematocrit Auto (Bld) [Volum e fraction]on 09-30-2023 Hematocrit (Bld) [Volume fraction] 32.9 % 42.0-54.0 [facility] Hemoglobin [Mass/volume] in Bloodon 09-30-2023 Hemoglobin (Bld) [Mass/Vol] 10.0 g/dL 14.0-18.0 [facility] INR in Platelet poor plasma by Coagulation assayon 09-30-2023 INR Coag (PPP) [Relative time] 1.23 {INR} [facility] Comment on above: DESIRED INR:2.0-3.0 CONDITIONS NOT LISTED BELOW2.5-3.5 FOR PROSTHETIC HEART VALVE REPLACEMENT2.5-3.5 RECURRENT THROMBOSIS Ketones Auto test strip (U) [Mass/Vol]on 09-30-2023 Ketones (U) [Mass/Vol] Negative NEGATIVE [facility] - Chemistry and C hemistry - challengeon 09-30-2023 Lactate [Moles/Vol] 4.2 mmol/L 0.4-2.0 [facility] Comment on above: RESULTS CALLED TO Patricio Genao (RN)@BY SOFIYA Way at 2312 Albumin [Mass/Vol] 2.4 g/dL 3.4-5.0 [facility] ALP [Catalytic activity/Vol] 145 U/L 46-116 [facility] ALT [Catalytic activity/Vol] 17 U/L 16-63 [facility] AST [Catalytic activity/Vol] 21 U/L 15-37 [facility] Bilirubin [Mass/Vol] 0.4 mg/dL 0.2-1.0 [facility] Calcium [Mass/Vol] 5.8 mg/dL 8.5-10.1 [facility] Comment on above: RESULTS CALLED TO GIOVANNA CASTANON @BY Verona Hanson at 1645 Chloride [Moles/Vol] 97 mmol/L 98-107 [facility] CO2 [Moles/Vol] 18.3 mmol/L 21.0-32.0 [facility] Creatinine [Mass/Vol] 3.43 mg/dL 0.70-1.30 [facility] GFR/1.73 sq M.predicted MDRD (S/P/Bld) [Vol rate/Area] 22 mL/min/{1.73_m2} >=60 [facility] Glucose [Mass/Vol] 208 mg/dL 74-106 [facility] Magnesium [Mass/Vol] 0.5 mg/dL 1.8-2.4 [facility] Comment on above: RESULTS CALLED TO Giovanna Castanon @BY Marybel Hawkins MLT [phone] Natriuretic peptide B (Bld) [Mass/Vol] 611.0 pg/mL <=900.0 [facility] Potassium [Moles/Vol] 3.9 mmol/L 3.5-5.1 [facility] Protein [Mass/Vol] 7.2 g/dL 6.4-8.2 [facility] Sodium [Moles/Vol] 137 mmol/L 136-145 [facility] Urea nitrogen [Mass/Vol] 34.0 mg/dL 7.0-18.0 [facility] Urea nitrogen/Creatinine [Mass ratio] 9.9 mg/mg [facility] Laboratory - Hematology and Cell countson 09-30-2023 ESR (Bld) [Velocity] 130 mm/h <=20 [facility] Immature granulocytes/100 WBC (Bld) 0.6 % 0.0-0.5 [facility] Leukocytes [#/volume] correc jorge for nucleated erythrocytes in Blood by Automated counon 09-30-2023 WBC corrected for nucl RBC Auto (Bld) [#/Vol] 13.9 10 3/uL 4.0-11.0 [facility] Lymphocytes Auto (Bld) [#/Vo l]on 09-30-2023 Lymphocytes (Bld) [#/Vol] 1.4 10 3/uL 1.2-3.8 [facility] Lymphocytes/100 WBC Auto (Bl d)on 09-30-2023 Lymphocytes/100 WBC (Bld) 10.1 % 20.5-60.0 [facility] MCH Auto (RBC) [Entitic mass ]on 09-30-2023 MCH (RBC) [Entitic mass] 22.7 pg 25.9-34.0 [facility] MCHC Auto (RBC) [Mass/Vol]on 09-30-2023 MCHC (RBC) [Mass/Vol] 30.4 g/dL 29.9-35.2 [facility] MCV Auto (RBC) [Entitic vol] on 09-30-2023 MCV (RBC) [Entitic vol] 74.6 fL 80.0-94.0 [facility] Monocytes Auto (Bld) [#/Vol] on 09-30-2023 Monocytes (Bld) [#/Vol] 0.9 10 3/uL 0.3-0.8 [facility] Monocytes/100 WBC Auto (Bld) on 09-30-2023 Monocytes/100 WBC (Bld) 6.7 % 1.7-12.0 [facility] Mucus LM Ql (Urine sed)on Mucus Ql (Urine sed) NONE SEEN NONE SEEN [facility] Neutrophils Auto (Bld) [#/Vo l]on 09-30-2023 Neutrophils (Bld) [#/Vol] 11.2 10 3/uL 1.4-6.5 [facility] Neutrophils/100 WBC Auto (Bl d)on 09-30-2023 Neutrophils/100 WBC (Bld) 80.8 % 43.0-75.0 [facility] No Panel Informationon 09-29 Troponin I High Sensitivity 7.9 pg/mL 4.0-76.1 [facility] Comment on above: CUT-OFF POINTS HAVE BEEN [...] Blood Partial Pressure CO2 29.6 mm[Hg] 40.0-52.0 [facility] Venous Blood pH 7.405 7.330-7.43 0 [facility] Urine Culture Reflexed NO [facility] C-Reactive Protein, Quantitative 14.76 mg/dL <=0.50 [facility] Eosinophils # (Auto) 0.2 10 3/uL 0.0-0.7 [facility] Immature Granulocyte # (Auto) 0.09 10 3/uL 0.00-0.03 [facility] No Panel InformationOrdered By: Chandrika Castanon on 09-30-2023 Blood Culture 2 [facility] Wound Culture [facility] Blood Culture 1 [facility] Platelet mean volume Auto (B ld) [Entitic vol]on 09-30-2023 Platelet mean volume (Bld) [Entitic vol] 10.9 fL 9.5-13.5 [facility] Platelets Auto (Bld) [#/Vol] on 09-30-2023 Platelets (Bld) [#/Vol] 227 10 3/uL 150-450 [facility] Protein Auto test strip (U) [Mass/Vol]on 09-30-2023 Protein (U) [Mass/Vol] Negative NEG/TRACE [facility] Prothrombin time (PT)on 09-04 PT Coag (PPP) [Time] 12.9 s 9.0-11.6 [facility] RBC Auto (Bld) [#/Vol]on RBC (Bld) [#/Vol] 4.41 10 6/uL 4.70-6.10 [facility] Serum or plasma albumin/glob ulin mass ratioon 09-30-2023 Albumin/Globulin [Mass ratio] 0.5 {ratio} [facility] Serum or plasma anion gap de terminationon 09-30-2023 Anion gap [Moles/Vol] 25.6 mmol/L [facility] Specific gravity Auto test s trip (U) [Rel density]on 09-30-2023 Specific gravity (U) [Rel density] CLEAR CLEAR [facility] Urine bacteria detection by automated methodon 09-30-2023 Bacteria Auto Ql (U) NONE SEEN #/HPF NONE SEEN [facility] Urine glucose measurement by test strip (mass/volume)on 09-30-2023 Glucose Test strip (U) [Mass/Vol] 500 mg/dL NEGATIVE [facility] Urine hemoglobin detection b y automated test stripon 09-30-2023 Hemoglobin Auto test strip Ql (U) TRACE-I NEGATIVE [facility] Urine nitrite detection by a utomated test stripon 09-30-2023 Nitrite Auto test strip Ql (U) Negative NEGATIVE [facility] Urine sediment crystal ident ification by light microscopyon 09-30-2023 Crystals LM Nom (Urine sed) None Seen #/HPF None Seen [facility] Urine sediment leukocyte cou nt by microscopy (number/high power field)on 09-30-2023 WBC LM.HPF (Urine sed) [#/Area] NONE SEEN #/HPF NONE SEEN [facility] Urobilinogen Auto test strip (U) [Mass/Vol]on 09-30-2023 Urobilinogen Qn (U) 0.2 {Brendan'U}/dL 0.2-1.0 [facility] pH Auto test strip (U)on pH (U) 5.5 [pH] 5.0-9.0 [facility] Guy 09-21-2023 L Specimen: [id number] Received: 09/21/23 Status: COLTON Nath Num: [id number] Spec Type: Surgical Subm Dr: Paula Elias DPM, MS Tissues: A Bone Fragments - Other than Path Fracture Procedures: HE, Gross/Micro L3, Decalcification Age/ Patient Sex Location Account Attending Physician Solomon Feldman SR 58/M LABELL [id number] Paula Elias DPM, MS SPEC NUM: [id number] RECD: 09/21/23 STATUS: COLTON NATH NUM: [id number] SHAKIRA: 09/21/[address]: Paula Elias DPM, MS ENTERED: 09/21/[address] [facility] [address]: SPEC TYPE: Surgical DEPT: RAMSEY MARCANO ENTERED BY: [id number] RECV BY: [id number] ORDERED: HE, Gross/Micro L3, Decalcification ORDERED: HE, [...] excisional debridement with skin substitute. CPT Codes 65788, 98004 Specimen: [id number] Received: 09/21/23 Status: COLTON Nath Num: [id number] Spec Type: Surgical Subm Dr: Paula Elias,DPM, MS Tissues: A Bone Fragments - Other than Path Fracture Procedures: HE, Gross/Micro L3, Decalcification Patient: Solomon Feldman SR [id number] (Continued) Signed (signature on file) Victor Hugo Sotelo MD 09/26/23 0843 Normal [facility] Laboratory - Microbiology an d Antimicrobial susceptibilityOrdered By: Jenaro Lynch on 09-21-2023 Microscopic observation Gram stain Nom (Unsp spec) [facility] Activated partial thrombopla stin time (aPTT) in platelet poor plasma by coagulation aon 09-18-2023 aPTT Coag (PPP) [Time] 32.0 s 22.3-36.2 [facility] Basophils Auto (Bld) [#/Vol] on 09-18-2023 Basophils (Bld) [#/Vol] 0.1 10 3/uL 0.0-0.1 [facility] Basophils/100 WBC Auto (Bld) on 09-18-2023 Basophils/100 WBC (Bld) 0.9 % 0.2-2.0 [facility] Eosinophils/100 WBC Auto (Bl d)on 09-18-2023 Eosinophils/100 WBC (Bld) 2.3 % 0.9-7.0 [facility] Erythrocyte distribution wid th Auto (RBC) [Ratio]on 09-18-2023 Erythrocyte distribution width (RBC) [Ratio] 18.8 % 11.0-15.0 [facility] Estimated glomerular filtrat ion rate (GFR) non- Americanon 09-18-2023 GFR/1.73 sq M.predicted among non-blacks MDRD (S/P/Bld) [Vol rate/Area] 27 mL/min/{1.73_m2} >=60 [facility] Hematocrit Auto (Bld) [Volum e fraction]on 09-18-2023 Hematocrit (Bld) [Volume fraction] 35.0 % 42.0-54.0 [facility] Hemoglobin [Mass/volume] in Bloodon 09-18-2023 Hemoglobin (Bld) [Mass/Vol] 10.3 g/dL 14.0-18.0 [facility] INR in Platelet poor plasma by Coagulation assayon 09-18-2023 INR Coag (PPP) [Relative time] 1.08 {INR} [facility] Comment on above: DESIRED INR:2.0-3.0 CONDITIONS NOT LISTED BELOW2.5-3.5 FOR PROSTHETIC HEART VALVE REPLACEMENT2.5-3.5 RECURRENT THROMBOSIS Laboratory - Chemistry and C hemistry - challengeon 09-18-2023 Calcium [Mass/Vol] 8.9 mg/dL 8.5-10.1 [facility] Chloride [Moles/Vol] 97 mmol/L 98-107 [facility] CO2 [Moles/Vol] 28.2 mmol/L 21.0-32.0 [facility] Creatinine [Mass/Vol] 2.47 mg/dL 0.70-1.30 [facility] GFR/1.73 sq M.predicted MDRD (S/P/Bld) [Vol rate/Area] 33 mL/min/{1.73_m2} >=60 [facility] Glucose [Mass/Vol] 200 mg/dL 74-106 [facility] Potassium [Moles/Vol] 3.7 mmol/L 3.5-5.1 [facility] Sodium [Moles/Vol] 137 mmol/L 136-145 [facility] Urea nitrogen [Mass/Vol] 23.0 mg/dL 7.0-18.0 [facility] Urea nitrogen/Creatinine [Mass ratio] 9.3 mg/mg [facility] Laboratory - Hematology and Cell countson 09-18-2023 Immature granulocytes/100 WBC (Bld) 0.6 % 0.0-0.5 [facility] Leukocytes [#/volume] correc jorge for nucleated erythrocytes in Blood by Automated counon 09-18-2023 WBC corrected for nucl RBC Auto (Bld) [#/Vol] 12.4 10 3/uL 4.0-11.0 [facility] Lymphocytes Auto (Bld) [#/Vo l]on 09-18-2023 Lymphocytes (Bld) [#/Vol] 2.4 10 3/uL 1.2-3.8 [facility] Lymphocytes/100 WBC Auto (Bl d)on 09-18-2023 Lymphocytes/100 WBC (Bld) 19.6 % 20.5-60.0 [facility] MCH Auto (RBC) [Entitic mass ]on 09-18-2023 MCH (RBC) [Entitic mass] 22.2 pg 25.9-34.0 [facility] MCHC Auto (RBC) [Mass/Vol]on 09-18-2023 MCHC (RBC) [Mass/Vol] 29.4 g/dL 29.9-35.2 [facility] MCV Auto (RBC) [Entitic vol] on 09-18-2023 MCV (RBC) [Entitic vol] 75.3 fL 80.0-94.0 [facility] Monocytes Auto (Bld) [#/Vol] on 09-18-2023 Monocytes (Bld) [#/Vol] 1.2 10 3/uL 0.3-0.8 [facility] Monocytes/100 WBC Auto (Bld) on 09-18-2023 Monocytes/100 WBC (Bld) 10.0 % 1.7-12.0 [facility] Neutrophils Auto (Bld) [#/Vo l]on 09-18-2023 Neutrophils (Bld) [#/Vol] 8.2 10 3/uL 1.4-6.5 [facility] Neutrophils/100 WBC Auto (Bl d)on 09-18-2023 Neutrophils/100 WBC (Bld) 66.6 % 43.0-75.0 [facility] No Panel Informationon 09-17 Eosinophils # (Auto) 0.3 10 3/uL 0.0-0.7 [facility] Immature Granulocyte # (Auto) 0.07 10 3/uL 0.00-0.03 [facility] Platelet mean volume Auto (B ld) [Entitic vol]on 09-18-2023 Platelet mean volume (Bld) [Entitic vol] 10.9 fL 9.5-13.5 [facility] Platelets Auto (Bld) [#/Vol] on 09-18-2023 Platelets (Bld) [#/Vol] 300 10 3/uL 150-450 [facility] Prothrombin time (PT)on 09-03 PT Coag (PPP) [Time] 11.4 s 9.0-11.6 [facility] RBC Auto (Bld) [#/Vol]on RBC (Bld) [#/Vol] 4.65 10 6/uL 4.70-6.10 [facility] Serum or plasma anion gap de terminationon 09-18-2023 Anion gap [Moles/Vol] 15.5 mmol/L [facility] - Microbiology an d Antimicrobial susceptibilityOrdered By: Jenaro Lynch on 08-10-2023 Microscopic observation Gram stain Nom (Unsp spec) [facility] No Panel Informationon 08-09 Fungal Smear Result [facility] Miscellaneous Test Comment See comment [facility] Comment on above: Specimen Source: JONO TRT - Foot Right - Foot Rt - 604.000 No Panel InformationOrdered By: Jenaro Lynch on 08-10-2023 Acid Fast Culture [facility] Acid Fast Smear [facility] AFB Specimen Processing [facility] Tissue Culture [facility] Basophils Auto (Bld) [#/Vol] on 08-07-2023 Basophils (Bld) [#/Vol] 0.1 10 3/uL 0.0-0.1 [facility] Basophils/100 WBC Auto (Bld) on 08-07-2023 Basophils/100 WBC (Bld) 0.7 % 0.2-2.0 [facility] Eosinophils/100 WBC Auto (Bl d)on 08-07-2023 Eosinophils/100 WBC (Bld) 3.9 % 0.9-7.0 [facility] Erythrocyte distribution wid th Auto (RBC) [Ratio]on 08-07-2023 Erythrocyte distribution width (RBC) [Ratio] 16.9 % 11.0-15.0 [facility] Estimated glomerular filtrat ion rate (GFR) non- Americanon 08-07-2023 GFR/1.73 sq M.predicted among non-blacks MDRD (S/P/Bld) [Vol rate/Area] 42 mL/min/{1.73_m2} >=60 [facility] Globulin Calc (S) [Mass/Vol] on 08-07-2023 Globulin (S) [Mass/Vol] 4.0 g/dL [facility] Hematocrit Auto (Bld) [Volum e fraction]on 08-07-2023 Hematocrit (Bld) [Volume fraction] 31.5 % 42.0-54.0 [facility] Hemoglobin [Mass/volume] in Bloodon 08-07-2023 Hemoglobin (Bld) [Mass/Vol] 9.4 g/dL 14.0-18.0 [facility] Laboratory - Chemistry and C hemistry - challengeon 08-07-2023 Albumin [Mass/Vol] 2.1 g/dL 3.4-5.0 [facility] ALP [Catalytic activity/Vol] 144 U/L 46-116 [facility] ALT [Catalytic activity/Vol] 21 U/L 16-63 [facility] AST [Catalytic activity/Vol] 25 U/L 15-37 [facility] Bilirubin [Mass/Vol] 0.4 mg/dL 0.2-1.0 [facility] Calcium [Mass/Vol] 8.1 mg/dL 8.5-10.1 [facility] Chloride [Moles/Vol] 102 mmol/L 98-107 [facility] CO2 [Moles/Vol] 24.7 mmol/L 21.0-32.0 [facility] Creatinine [Mass/Vol] 1.70 mg/dL 0.70-1.30 [facility] GFR/1.73 sq M.predicted MDRD (S/P/Bld) [Vol rate/Area] 50 mL/min/{1.73_m2} >=60 [facility] Glucose [Mass/Vol] 188 mg/dL 74-106 [facility] Potassium [Moles/Vol] 4.6 mmol/L 3.5-5.1 [facility] Protein [Mass/Vol] 6.1 g/dL 6.4-8.2 [facility] Sodium [Moles/Vol] 135 mmol/L 136-145 [facility] Urea nitrogen [Mass/Vol] 33.0 mg/dL 7.0-18.0 [facility] Urea nitrogen/Creatinine [Mass ratio] 19.4 mg/mg [facility] Laboratory - Hematology and Cell countson 08-07-2023 Immature granulocytes/100 WBC (Bld) 0.7 % 0.0-0.5 [facility] Leukocytes [#/volume] correc jorge for nucleated erythrocytes in Blood by Automated counon 08-07-2023 WBC corrected for nucl RBC Auto (Bld) [#/Vol] 12.0 10 3/uL 4.0-11.0 [facility] Lymphocytes Auto (Bld) [#/Vo l]on 08-07-2023 Lymphocytes (Bld) [#/Vol] 1.5 10 3/uL 1.2-3.8 [facility] Lymphocytes/100 WBC Auto (Bl d)on 08-07-2023 Lymphocytes/100 WBC (Bld) 12.4 % 20.5-60.0 [facility] MCH Auto (RBC) [Entitic mass ]on 08-07-2023 MCH (RBC) [Entitic mass] 22.5 pg 25.9-34.0 [facility] MCHC Auto (RBC) [Mass/Vol]on 08-07-2023 MCHC (RBC) [Mass/Vol] 29.8 g/dL 29.9-35.2 [facility] MCV Auto (RBC) [Entitic vol] on 08-07-2023 MCV (RBC) [Entitic vol] 75.4 fL 80.0-94.0 [facility] Monocytes Auto (Bld) [#/Vol] on 08-07-2023 Monocytes (Bld) [#/Vol] 1.2 10 3/uL 0.3-0.8 [facility] Monocytes/100 WBC Auto (Bld) on 08-07-2023 Monocytes/100 WBC (Bld) 10.1 % 1.7-12.0 [facility] Neutrophils Auto (Bld) [#/Vo l]on 08-07-2023 Neutrophils (Bld) [#/Vol] 8.7 10 3/uL 1.4-6.5 [facility] Neutrophils/100 WBC Auto (Bl d)on 08-07-2023 Neutrophils/100 WBC (Bld) 72.2 % 43.0-75.0 [facility] No Panel Informationon 08-06 Eosinophils # (Auto) 0.5 10 3/uL 0.0-0.7 [facility] Immature Granulocyte # (Auto) 0.09 10 3/uL 0.00-0.03 [facility] Platelet mean volume Auto (B ld) [Entitic vol]on 08-07-2023 Platelet mean volume (Bld) [Entitic vol] 11.7 fL 9.5-13.5 [facility] Platelets Auto (Bld) [#/Vol] on 08-07-2023 Platelets (Bld) [#/Vol] 222 10 3/uL 150-450 [facility] RBC Auto (Bld) [#/Vol]on RBC (Bld) [#/Vol] 4.18 10 6/uL 4.70-6.10 [facility] Serum or plasma albumin/glob ulin mass ratioon 08-07-2023 Albumin/Globulin [Mass ratio] 0.5 {ratio} [facility] Serum or plasma anion gap de terminationon 08-07-2023 Anion gap [Moles/Vol] 12.9 mmol/[facility] Bas[facility] Auto (Bld) [#/Vol] on 08-06-2023 Basophils (Bld) [#/Vol] 0.1 10 3/uL 0.0-0.1 [facility] Basophils/100 WBC Auto (Bld) on 08-06-2023 Basophils/100 WBC (Bld) 0.7 % 0.2-2.0 [facility] Eosinophils/100 WBC Auto (Bl d)on 08-06-2023 Eosinophils/100 WBC (Bld) 3.3 % 0.9-7.0 [facility] Erythrocyte distribution wid th Auto (RBC) [Ratio]on 08-06-2023 Erythrocyte distribution width (RBC) [Ratio] 17.0 % 11.0-15.0 [facility] Estimated glomerular filtrat ion rate (GFR) non- Americanon 08-06-2023 GFR/1.73 sq M.predicted among non-blacks MDRD (S/P/Bld) [Vol rate/Area] 36 mL/min/{1.73_m2} >=60 [facility] Globulin Calc (S) [Mass/Vol] on 08-06-2023 Globulin (S) [Mass/Vol] 4.0 g/dL [facility] Hematocrit Auto (Bld) [Volum e fraction]on 08-06-2023 Hematocrit (Bld) [Volume fraction] 30.1 % 42.0-54.0 [facility] Hemoglobin [Mass/volume] in Bloodon 08-06-2023 Hemoglobin (Bld) [Mass/Vol] 8.8 g/dL 14.0-18.0 [facility] Laboratory - Chemistry and C hemistry - challengeon 08-06-2023 Albumin [Mass/Vol] 2.0 g/dL 3.4-5.0 [facility] ALP [Catalytic activity/Vol] 127 U/L 46-116 [facility] ALT [Catalytic activity/Vol] 14 U/L 16-63 [facility] AST [Catalytic activity/Vol] 16 U/L 15-37 [facility] Bilirubin [Mass/Vol] 0.4 mg/dL 0.2-1.0 [facility] Calcium [Mass/Vol] 7.9 mg/dL 8.5-10.1 [facility] Chloride [Moles/Vol] 99 mmol/L 98-107 [facility] CO2 [Moles/Vol] 25.0 mmol/L 21.0-32.0 [facility] Creatinine [Mass/Vol] 1.95 mg/dL 0.70-1.30 [facility] GFR/1.73 sq M.predicted MDRD (S/P/Bld) [Vol rate/Area] 43 mL/min/{1.73_m2} >=60 [facility] Glucose [Mass/Vol] 297 mg/dL 74-106 [facility] Potassium [Moles/Vol] 4.4 mmol/L 3.5-5.1 [facility] Protein [Mass/Vol] 6.0 g/dL 6.4-8.2 [facility] Sodium [Moles/Vol] 133 mmol/L 136-145 [facility] Urea nitrogen [Mass/Vol] 28.0 mg/dL 7.0-18.0 [facility] Urea nitrogen/Creatinine [Mass ratio] 14.4 mg/mg [facility] Laboratory - Hematology and Cell countson 08-06-2023 Immature granulocytes/100 WBC (Bld) 0.4 % 0.0-0.5 [facility] Leukocytes [#/volume] correc jorge for nucleated erythrocytes in Blood by Automated counon 08-06-2023 WBC corrected for nucl RBC Auto (Bld) [#/Vol] 10.1 10 3/uL 4.0-11.0 [facility] Lymphocytes Auto (Bld) [#/Vo l]on 08-06-2023 Lymphocytes (Bld) [#/Vol] 1.5 10 3/uL 1.2-3.8 [facility] Lymphocytes/100 WBC Auto (Bl d)on 08-06-2023 Lymphocytes/100 WBC (Bld) 14.4 % 20.5-60.0 [facility] MCH Auto (RBC) [Entitic mass ]on 08-06-2023 MCH (RBC) [Entitic mass] 22.5 pg 25.9-34.0 [facility] MCHC Auto (RBC) [Mass/Vol]on 08-06-2023 MCHC (RBC) [Mass/Vol] 29.2 g/dL 29.9-35.2 [facility] MCV Auto (RBC) [Entitic vol] on 08-06-2023 MCV (RBC) [Entitic vol] 77.0 fL 80.0-94.0 [facility] Monocytes Auto (Bld) [#/Vol] on 08-06-2023 Monocytes (Bld) [#/Vol] 1.1 10 3/uL 0.3-0.8 [facility] Monocytes/100 WBC Auto (Bld) on 08-06-2023 Monocytes/100 WBC (Bld) 10.4 % 1.7-12.0 [facility] Neutrophils Auto (Bld) [#/Vo l]on 08-06-2023 Neutrophils (Bld) [#/Vol] 7.2 10 3/uL 1.4-6.5 [facility] Neutrophils/100 WBC Auto (Bl d)on 08-06-2023 Neutrophils/100 WBC (Bld) 70.8 % 43.0-75.0 [facility] No Panel Informationon 08-05 Vancomycin Level Trough 13.6 ug/mL 5.0-20.0 [facility] Eosinophils # (Auto) 0.3 10 3/uL 0.0-0.7 [facility] Immature Granulocyte # (Auto) 0.04 10 3/uL 0.00-0.03 [facility] Platelet mean volume Auto (B ld) [Entitic vol]on 08-06-2023 Platelet mean volume (Bld) [Entitic vol] 12.2 fL 9.5-13.5 [facility] Platelets Auto (Bld) [#/Vol] on 08-06-2023 Platelets (Bld) [#/Vol] 190 10 3/uL 150-450 [facility] RBC Auto (Bld) [#/Vol]on RBC (Bld) [#/Vol] 3.91 10 6/uL 4.70-6.10 [facility] Serum or plasma albumin/glob ulin mass ratioon 08-06-2023 Albumin/Globulin [Mass ratio] 0.5 {ratio} [facility] Serum or plasma anion gap de terminationon 08-06-2023 Anion gap [Moles/Vol] 13.4 mmol/L [facility] Automated epithelial cells c ount in urine sediment (number/area)on 08-05-2023 Epithelial cells Auto (Urine sed) [#/Area] RARE #/LPF NONE/RARE [facility] Automated leukocytes count i n urine sediment (number/area)on 08-05-2023 WBC Auto (Urine sed) [#/Area] NONE SEEN #/HPF 0-2 [facility] Automated urine specific gra vity by refractometryon 08-05-2023 Specific gravity Refractometry automated (U) [Rel density] <=1.005 1.005-1.02 5 [facility] Basophils Auto (Bld) [#/Vol] on 08-05-2023 Basophils (Bld) [#/Vol] 0.1 10 3/uL 0.0-0.1 [facility] Basophils/100 WBC Auto (Bld) on 08-05-2023 Basophils/100 WBC (Bld) 0.7 % 0.2-2.0 [facility] Bilirubin Auto test strip (U ) [Mass/Vol]on 08-05-2023 Bilirubin (U) [Mass/Vol] Negative NEGATIVE [facility] Casts typing in urine sedime nt by light microscopyon 08-05-2023 Casts LM Nom (Urine sed) NONE SEEN #/LPF NONE SEEN [facility] Color Auto (U)on 08-05-2023 Color (U) LT. YELLOW YELLOW [facility] Eosinophils/100 WBC Auto (Bl d)on 08-05-2023 Eosinophils/100 WBC (Bld) 2.5 % 0.9-7.0 [facility] Erythrocyte distribution wid th Auto (RBC) [Ratio]on 08-05-2023 Erythrocyte distribution width (RBC) [Ratio] 16.8 % 11.0-15.0 [facility] Estimated glomerular filtrat ion rate (GFR) non- Americanon 08-05-2023 GFR/1.73 sq M.predicted among non-blacks MDRD (S/P/Bld) [Vol rate/Area] 42 mL/min/{1.73_m2} >=60 [facility] Globulin Calc (S) [Mass/Vol] on 08-05-2023 Globulin (S) [Mass/Vol] 4.1 g/dL [facility] Glucose mean value [Mass/vol ume] in Blood Estimated from glycated hemoglobinon 08-05-2023 Average glucose Estimated from glycated hemoglobin (Bld) [Mass/Vol] 214 mg/dL [facility] Hematocrit Auto (Bld) [Volum e fraction]on 08-05-2023 Hematocrit (Bld) [Volume fraction] 31.8 % 42.0-54.0 [facility] Hemoglobin [Mass/volume] in Bloodon 08-05-2023 Hemoglobin (Bld) [Mass/Vol] 9.4 g/dL 14.0-18.0 [facility] Ketones Auto test strip (U) [Mass/Vol]on 08-05-2023 Ketones (U) [Mass/Vol] Negative NEGATIVE [facility] Laboratory - Chemistry and C hemistry - challengeon 08-05-2023 Albumin [Mass/Vol] 2.3 g/dL 3.4-5.0 [facility] ALP [Catalytic activity/Vol] 111 U/L 46-116 [facility] ALT [Catalytic activity/Vol] 11 U/L 16-63 [facility] AST [Catalytic activity/Vol] 11 U/L 15-37 [facility] Bilirubin [Mass/Vol] 0.5 mg/dL 0.2-1.0 [facility] Calcium [Mass/Vol] 8.1 mg/dL 8.5-10.1 [facility] Chloride [Moles/Vol] 101 mmol/L 98-107 [facility] CO2 [Moles/Vol] 25.6 mmol/L 21.0-32.0 [facility] Creatinine [Mass/Vol] 1.68 mg/dL 0.70-1.30 [facility] GFR/1.73 sq M.predicted MDRD (S/P/Bld) [Vol rate/Area] 51 mL/min/{1.73_m2} >=60 [facility] Glucose [Mass/Vol] 111 mg/dL 74-106 [facility] Potassium [Moles/Vol] 3.7 mmol/L 3.5-5.1 [facility] Protein [Mass/Vol] 6.4 g/dL 6.4-8.2 [facility] Sodium [Moles/Vol] 138 mmol/L 136-145 [facility] Urea nitrogen [Mass/Vol] 17.0 mg/dL 7.0-18.0 [facility] Urea nitrogen/Creatinine [Mass ratio] 10.1 mg/mg [facility] Laboratory - Hematology and Cell countson 08-05-2023 HbA1c (Bld) [Mass fraction] 9.1 % 4.5-6.2 [facility] Comment on above: ADA RECOMMENDED LIMI T 4.0 - 6.0ADA THERAPEUTIC TARGET < 7.0ACTION SUGGESTED> 7.0 Immature granulocytes/100 WBC (Bld) 0.4 % 0.0-0.5 [facility] Laboratory - Microbiology an d Antimicrobial susceptibilityOrdered By: Jenaro Lynch on 08-05-2023 Microscopic observation Gram stain Nom (Unsp spec) [facility] Leukocytes [#/volume] correc jorge for nucleated erythrocytes in Blood by Automated counon 08-05-2023 WBC corrected for nucl RBC Auto (Bld) [#/Vol] 12.3 10 3/uL 4.0-11.0 [facility] Lymphocytes Auto (Bld) [#/Vo l]on 08-05-2023 Lymphocytes (Bld) [#/Vol] 1.5 10 3/uL 1.2-3.8 [facility] Lymphocytes/100 WBC Auto (Bl d)on 08-05-2023 Lymphocytes/100 WBC (Bld) 11.8 % 20.5-60.0 [facility] MCH Auto (RBC) [Entitic mass ]on 08-05-2023 MCH (RBC) [Entitic mass] 22.4 pg 25.9-34.0 [facility] MCHC Auto (RBC) [Mass/Vol]on 08-05-2023 MCHC (RBC) [Mass/Vol] 29.6 g/dL 29.9-35.2 [facility] MCV Auto (RBC) [Entitic vol] on 08-05-2023 MCV (RBC) [Entitic vol] 75.9 fL 80.0-94.0 [facility] Monocytes Auto (Bld) [#/Vol] on 08-05-2023 Monocytes (Bld) [#/Vol] 1.3 10 3/uL 0.3-0.8 [facility] Monocytes/100 WBC Auto (Bld) on 08-05-2023 Monocytes/100 WBC (Bld) 10.7 % 1.7-12.0 [facility] Mucus LM Ql (Urine sed)on Mucus Ql (Urine sed) NONE SEEN NONE SEEN [facility] Neutrophils Auto (Bld) [#/Vo l]on 08-05-2023 Neutrophils (Bld) [#/Vol] 9.1 10 3/uL 1.4-6.5 [facility] Neutrophils/100 WBC Auto (Bl d)on 08-05-2023 Neutrophils/100 WBC (Bld) 73.9 % 43.0-75.0 [facility] No Panel Informationon 08-04 Eosinophils # (Auto) 0.3 10 3/uL 0.0-0.7 [facility] Immature Granulocyte # (Auto) 0.05 10 3/uL 0.00-0.03 [facility] Platelet mean volume Auto (B ld) [Entitic vol]on 08-05-2023 Platelet mean volume (Bld) [Entitic vol] 11.2 fL 9.5-13.5 [facility] Platelets Auto (Bld) [#/Vol] on 08-05-2023 Platelets (Bld) [#/Vol] 184 10 3/uL 150-450 [facility] Protein Auto test strip (U) [Mass/Vol]on 08-05-2023 Protein (U) [Mass/Vol] Negative NEG/TRACE Fi [facility] RBC Auto (Bld) [#/Vol]on RBC (Bld) [#/Vol] 4.19 10 6/uL 4.70-6.10 [facility] Serum or plasma albumin/glob ulin mass ratioon 08-05-2023 Albumin/Globulin [Mass ratio] 0.6 {ratio} [facility] Serum or plasma anion gap de terminationon 08-05-2023 Anion gap [Moles/Vol] 15.1 mmol/L [facility] Specific gravity Auto test s trip (U) [Rel density]on 08-05-2023 Specific gravity (U) [Rel density] CLEAR CLEAR [facility] Urine bacteria detection by automated methodon 08-05-2023 Bacteria Auto Ql (U) TRACE #/HPF NONE SEEN Fir [facility] Urine glucose measurement by test strip (mass/volume)on 08-05-2023 Glucose Test strip (U) [Mass/Vol] >=1000 mg/dL NEGATIVE [facility] Urine hemoglobin detection b y automated test stripon 08-05-2023 Hemoglobin Auto test strip Ql (U) Negative NEGATIVE [facility] Urine nitrite detection by a utomated test stripon 08-05-2023 Nitrite Auto test strip Ql (U) Negative NEGATIVE [facility] Urine sediment crystal ident ification by light microscopyon 08-05-2023 Crystals LM Nom (Urine sed) None Seen #/HPF None Seen [facility] Urine sediment leukocyte cou nt by microscopy (number/high power field)on 08-05-2023 WBC LM.HPF (Urine sed) [#/Area] NONE SEEN #/HPF NONE SEEN [facility] Urobilinogen Auto test strip (U) [Mass/Vol]on 08-05-2023 Urobilinogen Qn (U) 0.2 {Brendan'U}/dL 0.2-1.0 [facility] pH Auto test strip (U)on pH (U) 6.0 [pH] 5.0-9.0 [facility] Basophils Auto (Bld) [#/Vol] on 08-04-2023 Basophils (Bld) [#/Vol] 0.1 10 3/uL 0.0-0.1 [facility] Basophils/100 WBC Auto (Bld) on 08-04-2023 Basophils/100 WBC (Bld) 0.8 % 0.2-2.0 [facility] Eosinophils/100 WBC Auto (Bl d)on 08-04-2023 Eosinophils/100 WBC (Bld) 2.8 % 0.9-7.0 [facility] Erythrocyte distribution wid th Auto (RBC) [Ratio]on 08-04-2023 Erythrocyte distribution width (RBC) [Ratio] 16.9 % 11.0-15.0 [facility] Estimated glomerular filtrat ion rate (GFR) non- Americanon 08-04-2023 GFR/1.73 sq M.predicted among non-blacks MDRD (S/P/Bld) [Vol rate/Area] 33 mL/min/{1.73_m2} >=60 [facility] Globulin Calc (S) [Mass/Vol] on 08-04-2023 Globulin (S) [Mass/Vol] 4.4 g/dL [facility] Hematocrit Auto (Bld) [Volum e fraction]on 08-04-2023 Hematocrit (Bld) [Volume fraction] 32.6 % 42.0-54.0 [facility] Hemoglobin [Mass/volume] in Bloodon 08-04-2023 Hemoglobin (Bld) [Mass/Vol] 9.6 g/dL 14.0-18.0 [facility] INR in Platelet poor plasma by Coagulation assayon 08-04-2023 INR Coag (PPP) [Relative time] 1.05 {INR} [facility] Comment on above: DESIRED INR:2.0-3.0 CONDITIONS NOT LISTED BELOW2.5-3.5 FOR PROSTHETIC HEART VALVE REPLACEMENT2.5-3.5 [facility] THROMBOSIS Laboratory - Chemistry and C hemistry - challengeon 08-04-2023 Albumin [Mass/Vol] 2.4 g/dL 3.4-5.0 [facility] ALP [Catalytic activity/Vol] 109 U/L 46-116 [facility] ALT [Catalytic activity/Vol] 9 U/L 16-63 [facility] AST [Catalytic activity/Vol] U/L 15-37 [facility] Bilirubin [Mass/Vol] 0.4 mg/dL 0.2-1.0 [facility] Calcium [Mass/Vol] 8.0 mg/dL 8.5-10.1 [facility] Chloride [Moles/Vol] 96 mmol/L 98-107 [facility] CO2 [Moles/Vol] 29.2 mmol/L 21.0-32.0 [facility] Creatinine [Mass/Vol] 2.06 mg/dL 0.70-1.30 [facility] GFR/1.73 sq M.predicted MDRD (S/P/Bld) [Vol rate/Area] 40 mL/min/{1.73_m2} >=60 [facility] Glucose [Mass/Vol] 329 mg/dL 74-106 [facility] Potassium [Moles/Vol] 3.5 mmol/L 3.5-5.1 [facility] Protein [Mass/Vol] 6.8 g/dL 6.4-8.2 [facility] Sodium [Moles/Vol] 132 mmol/L 136-145 [facility] Urea nitrogen [Mass/Vol] 20.0 mg/dL 7.0-18.0 [facility] Urea nitrogen/Creatinine [Mass ratio] 9.7 mg/mg [facility] Laboratory - Hematology and Cell countson 08-04-2023 ESR (Bld) [Velocity] 89 mm/h <=20 [facility] Immature granulocytes/100 WBC (Bld) 0.3 % 0.0-0.5 [facility] Laboratory - Microbiology an d Antimicrobial susceptibilityOrdered By: Jenaro Lynch on 08-04-2023 Microscopic observation Gram stain Nom (Unsp spec) [facility] Leukocytes [#/volume] correc jorge for nucleated erythrocytes in Blood by Automated counon 08-04-2023 WBC corrected for nucl RBC Auto (Bld) [#/Vol] 11.6 10 3/uL 4.0-11.0 [facility] Lymphocytes Auto (Bld) [#/Vo l]on 08-04-2023 Lymphocytes (Bld) [#/Vol] 1.7 10 3/uL 1.2-3.8 [facility] Lymphocytes/100 WBC Auto (Bl d)on 08-04-2023 Lymphocytes/100 WBC (Bld) 14.9 % 20.5-60.0 [facility] MCH Auto (RBC) [Entitic mass ]on 08-04-2023 MCH (RBC) [Entitic mass] 22.3 pg 25.9-34.0 [facility] MCHC Auto (RBC) [Mass/Vol]on 08-04-2023 MCHC (RBC) [Mass/Vol] 29.4 g/dL 29.9-35.2 [facility] MCV Auto (RBC) [Entitic vol] on 08-04-2023 MCV (RBC) [Entitic vol] 75.8 fL 80.0-94.0 [facility] Monocytes Auto (Bld) [#/Vol] on 08-04-2023 Monocytes (Bld) [#/Vol] 1.2 10 3/uL 0.3-0.8 [facility] Monocytes/100 WBC Auto (Bld) on 08-04-2023 Monocytes/100 WBC (Bld) 10.4 % 1.7-12.0 [facility] Neutrophils Auto (Bld) [#/Vo l]on 08-04-2023 Neutrophils (Bld) [#/Vol] 8.2 10 3/uL 1.4-6.5 [facility] Neutrophils/100 WBC Auto (Bl d)on 08-04-2023 Neutrophils/100 WBC (Bld) 70.8 % 43.0-75.0 [facility] No Panel InformationOrdered By: Jenaro Lynch on 08-04-2023 Blood Culture 2 [facility] Blood Culture 1 [facility] Wound Culture [facility] No Panel Informationon 08-03 Aerobic & Anaerobic Susceptibility [facility] Miscellaneous Test Comment See comment [facility] Comment on above: Specimen Source: JONO T - Foot - Foot - 603.950 C-Reactive Protein, Quantitative 11.62 mg/dL <=0.50 [facility] Eosinophils # (Auto) 0.3 10 3/uL 0.0-0.7 [facility] Immature Granulocyte # (Auto) 0.04 10 3/uL 0.00-0.03 [facility] Platelet mean volume Auto (B ld) [Entitic vol]on 08-04-2023 Platelet mean volume (Bld) [Entitic vol] 11.5 fL 9.5-13.5 [facility] Platelets Auto (Bld) [#/Vol] on 08-04-2023 Platelets (Bld) [#/Vol] 206 10 3/uL 150-450 [facility] Prothrombin time (PT)on PT Coag (PPP) [Time] 11.1 s 9.0-11.6 [facility] RBC Auto (Bld) [#/Vol]on RBC (Bld) [#/Vol] 4.30 10 6/uL 4.70-6.10 [facility] Serum or plasma albumin/glob ulin mass ratioon 08-04-2023 Albumin/Globulin [Mass ratio] 0.5 {ratio} [facility] Serum or plasma anion gap de terminationon 08-04-2023 Anion gap [Moles/Vol] 10.3 mmol/L [facility] Serum procalcitonin measurem enton 08-04-2023 Procalcitonin [Mass/Vol] 0.10 ng/mL 0.00-0.50 [facility] Basophils Auto (Bld) [#/Vol] on 08-03-2023 Basophils (Bld) [#/Vol] 0.1 10 3/uL 0.0-0.1 [facility] Basophils/100 WBC Auto (Bld) on 08-03-2023 Basophils/100 WBC (Bld) 0.7 % 0.2-2.0 [facility] Eosinophils/100 WBC Auto (Bl d)on 08-03-2023 Eosinophils/100 WBC (Bld) 1.8 % 0.9-7.0 [facility] Erythrocyte distribution wid th Auto (RBC) [Ratio]on 08-03-2023 Erythrocyte distribution width (RBC) [Ratio] 17.0 % 11.0-15.0 [facility] Estimated glomerular filtrat ion rate (GFR) non- Americanon 08-03-2023 GFR/1.73 sq M.predicted among non-blacks MDRD (S/P/Bld) [Vol rate/Area] 27 mL/min/{1.73_m2} >=60 [facility] Globulin Calc (S) [Mass/Vol] on 08-03-2023 Globulin (S) [Mass/Vol] 5.0 g/dL [facility] Hematocrit Auto (Bld) [Volum e fraction]on 08-03-2023 Hematocrit (Bld) [Volume fraction] 38.9 % 42.0-54.0 [facility] Hemoglobin [Mass/volume] in Bloodon 08-03-2023 Hemoglobin (Bld) [Mass/Vol] 11.8 g/dL 14.0-18.0 [facility] Laboratory - Chemistry and C hemistry - challengeon 08-03-2023 Lactate [Moles/Vol] 1.6 mmol/L 0.4-2.0 [facility] Albumin [Mass/Vol] 3.3 g/dL 3.4-5.0 [facility] ALP [Catalytic activity/Vol] 134 U/L 46-116 [facility] ALT [Catalytic activity/Vol] 13 U/L 16-63 [facility] AST [Catalytic activity/Vol] U/L 15-37 [facility] Bilirubin [Mass/Vol] 0.6 mg/dL 0.2-1.0 [facility] Calcium [Mass/Vol] 9.3 mg/dL 8.5-10.1 [facility] Chloride [Moles/Vol] 92 mmol/L 98-107 [facility] CO2 [Moles/Vol] 31.0 mmol/L 21.0-32.0 [facility] Creatinine [Mass/Vol] 2.45 mg/dL 0.70-1.30 [facility] GFR/1.73 sq M.predicted MDRD (S/P/Bld) [Vol rate/Area] 33 mL/min/{1.73_m2} >=60 [facility] Glucose [Mass/Vol] 310 mg/dL 74-106 [facility] Potassium [Moles/Vol] 3.7 mmol/L 3.5-5.1 [facility] Protein [Mass/Vol] 8.3 g/dL 6.4-8.2 [facility] Sodium [Moles/Vol] 133 mmol/L 136-145 [facility] Urea nitrogen [Mass/Vol] 23.0 mg/dL 7.0-18.0 [facility] Urea nitrogen/Creatinine [Mass ratio] 9.4 mg/mg [facility] Laboratory - Hematology and Cell countson 08-03-2023 ESR (Bld) [Velocity] 118 mm/h <=20 [facility] Immature granulocytes/100 WBC (Bld) 0.4 % 0.0-0.5 [facility] Leukocytes [#/volume] correc jorge for nucleated erythrocytes in Blood by Automated counon 08-03-2023 WBC corrected for nucl RBC Auto (Bld) [#/Vol] 14.6 10 3/uL 4.0-11.0 [facility] Lymphocytes Auto (Bld) [#/Vo l]on 08-03-2023 Lymphocytes (Bld) [#/Vol] 2.1 10 3/uL 1.2-3.8 [facility] Lymphocytes/100 WBC Auto (Bl d)on 08-03-2023 Lymphocytes/100 WBC (Bld) 14.3 % 20.5-60.0 [facility] MCH Auto (RBC) [Entitic mass ]on 08-03-2023 MCH (RBC) [Entitic mass] 22.6 pg 25.9-34.0 [facility] MCHC Auto (RBC) [Mass/Vol]on 08-03-2023 MCHC (RBC) [Mass/Vol] 30.3 g/dL 29.9-35.2 [facility] MCV Auto (RBC) [Entitic vol] on 08-03-2023 MCV (RBC) [Entitic vol] 74.4 fL 80.0-94.0 [facility] Monocytes Auto (Bld) [#/Vol] on 08-03-2023 Monocytes (Bld) [#/Vol] 1.4 10 3/uL 0.3-0.8 [facility] Monocytes/100 WBC Auto (Bld) on 08-03-2023 Monocytes/100 WBC (Bld) 9.4 % 1.7-12.0 [facility] Neutrophils Auto (Bld) [#/Vo l]on 08-03-2023 Neutrophils (Bld) [#/Vol] 10.7 10 3/uL 1.4-6.5 [facility] Neutrophils/100 WBC Auto (Bl d)on 08-03-2023 Neutrophils/100 WBC (Bld) 73.4 % 43.0-75.0 [facility] No Panel Informationon C-Reactive Protein, Quantitative 14.63 mg/dL <=0.50 [facility] Eosinophils # (Auto) 0.3 10 3/uL 0.0-0.7 [facility]ir [facility] Immature Granulocyte # (Auto) 0.06 10 3/uL 0.00-0.03 [facility] Venous Blood Partial Pressure CO2 44.8 mm[Hg] 40.0-52.0 [facility] Venous Blood pH 7.432 7.330-7.43 0 [facility] No Panel InformationOrdered By: Jenaro Lynch on 08-03-2023 Blood Culture 2 [facility] Blood Culture 1 [facility] Platelet mean volume Auto (B ld) [Entitic vol]on 08-03-2023 Platelet mean volume (Bld) [Entitic vol] 11.4 fL 9.5-13.5 [facility] Platelets Auto (Bld) [#/Vol] on 08-03-2023 Platelets (Bld) [#/Vol] 252 10 3/uL 150-450 [facility] RBC Auto (Bld) [#/Vol]on RBC (Bld) [#/Vol] 5.23 10 6/uL 4.70-6.10 [facility] Serum or plasma albumin/glob ulin mass ratioon 08-03-2023 Albumin/Globulin [Mass ratio] 0.7 {ratio} [facility] Serum or plasma anion gap de terminationon 08-03-2023 Anion gap [Moles/Vol] 13.7 mmol/L Fi [facility] US venous duplex LE BIon US venous duplex LE BI [facility] [address] [place] [id number] Ultrasound Report Signed Patient: Solomon Feldman SR MR#: [id number] : 1965 Acct:[id number] Age/Sex: 57 / M ADM Date: 07/12/23 Loc: ER Room: Type: [facility] ER Attending Dr: Ordering Provider: [...] Howard Boss MD07/13/2023 11:56 AM Dictation Location: [place] [address] Tech: Nancy Pantoja Transcribed By: BOB 07/13/23 1156 Dictated By: Howard Boss MD 07/13/23 1156 Signed By: 07/13/23 1156 Normal [facility] US venous duplex UE LTon US venous duplex UE LT [facility] [place] [address] Ultrasound Report Signed Patient: Solomon Feldman SR MR#: [id number] : 1965 Acct:[id number] Age/Sex: 57 / M ADM Date: 07/12/23 Loc: ER Room: Type: [facility] ER Attending Dr: Ordering Provider: [...] Howard Boss MD07/13/2023 11:56 AM Dictation Location: [place] [address] Tech: Nancy Pantoja Transcribed By: BOB 07/13/23 1156 Dictated By: Howard Boss MD 07/13/23 1155 Signed By: 07/13/23 1156 Normal [facility] Activated partial thrombopla stin time (aPTT) in platelet poor plasma by coagulation aOrdered By: Nancy Wilson on 07-12-2023 aPTT Coag (PPP) [Time] 29.4 s 25.1-36.5 [facility] Comment on above: A hematocrit value g reater than 55% may lead to inaccurate results in coagulation testing. Patients having hematocrit values >55% require a special collection tube for coagulation studies. Please contact the laboratory at [phone] for redraw instructions. Alanine aminotransferase [En zymatic activity/volume] in Serum or PlasmaOrdered By: Nancy Wilson on 07-12-2023 ALT [Catalytic activity/Vol] 9 U/L 7-52 [facility] Albumin [Mass/volume] in Ser um or Plasma by Bromocresol green (BCG) dye binding methoOrdered By: Nancy Wilson on 07-12-2023 Albumin BCG dye [Mass/Vol] 3.9 g/dL 3.5-5.7 [facility] Alkaline phosphatase [Enzyma tic activity/volume] in Serum or PlasmaOrdered By: Nancy Wilson on 07-12-2023 ALP [Catalytic activity/Vol] 106 U/L 34-104 [facility] Aspartate aminotransferase [ Enzymatic activity/volume] in Serum or PlasmaOrdered By: Nancy Wilson on 07-12-2023 AST [Catalytic activity/Vol] 8 U/L 13-39 [facility] B-Type Natriuretic Peptideon 07-12-2023 Natriuretic peptide B (Bld) [Mass/Vol] 34.0 pg/mL Normal 5-100 [facility] Comment on above: Result Comment: PERF ORMED BY: [facility] [address] [place] [address] PATHOLOGIST [employer] CLIFFORD LOBATO M.D. Performed By: #### P TT, CBC, PT, BNP, CMP, HS TROP, CK #### [facility] [address] Basophils Auto (Bld) [#/Vol] Ordered By: Nancy Wilson on 07-12-2023 Basophils (Bld) [#/Vol] 0.1 10*3/uL 0.0-0.2 [facility] Basophils/100 WBC Auto (Bld) Ordered By: Nancy Wilson on 07-12-2023 Basophils/100 WBC (Bld) 1.1 % . [facility] Bilirubin.total [Mass/volume ] in Serum or PlasmaOrdered By: Nancy Wilson on 07-12-2023 Bilirubin [Mass/Vol] 0.4 mg/dL 0.3-1.0 [facility] Calcium [Mass/volume] in Ser um or PlasmaOrdered By: Nancy Wilson on 07-12-2023 Calcium [Mass/Vol] 8.5 mg/dL 8.6-10.3 [facility] Carbon dioxide, total [Moles /volume] in Serum or PlasmaOrdered By: Nancy Wilson on 07-12-2023 CO2 [Moles/Vol] 24.5 mmol/L 21.0-31.0 [facility] Chloride [Moles/volume] in S ilai or PlasmaOrdered By: Nancy Wilson on 07-12-2023 Chloride [Moles/Vol] 102 mmol/L 98-107 [facility] Complete Blood Count Auto Di ffon 07-12-2023 Basophils (Bld) [#/Vol] 0.1 10*3/uL Normal 0.0-0.2 [facility] Comment on above: Result Comment: PERF ORMED BY: [place] [address] PATHOLOGIST [employer] CLIFFORD LOBATO M.D. Performed By: #### P TT, CBC, PT, BNP, CMP, HS TROP, CK #### [address] Basophils/100 WBC (Bld) 1.1 % Normal . [facility] Comment on above: Performed By: #### P TT, CBC, PT, BNP, CMP, HS TROP, CK #### [address] Eosinophils (Bld) [#/Vol] 0.3 10*3/uL Normal 0.0-0.45 [facility] Comment on above: Performed By: #### P TT, CBC, PT, BNP, CMP, HS TROP, CK #### [address] Eosinophils/100 WBC (Bld) 3.3 % Normal . [facility] Comment on above: Performed By: #### P TT, CBC, PT, BNP, CMP, HS TROP, CK #### [address] Erythrocyte distribution width (RBC) [Ratio] 17.1 % High 12.0-14.8 [facility] Comment on above: Performed By: #### P TT, CBC, PT, BNP, CMP, HS TROP, CK #### [address] Hematocrit (Bld) [Volume fraction] 32.7 % Low 38.8-50.0 [facility] Comment on above: Performed By: #### P TT, CBC, PT, BNP, CMP, HS TROP, CK #### [address] Hemoglobin (Bld) [Mass/Vol] 10.6 g/dL Low 13.0-17.0 [facility] Comment on above: Performed By: #### P TT, CBC, PT, BNP, CMP, HS TROP, CK #### [address] Lymphocytes (Bld) [#/Vol] 1.9 10*3/uL Normal 1.00-4.8 [facility] Comment on above: Performed By: #### P TT, CBC, PT, BNP, CMP, HS TROP, CK #### [address] Lymphocytes/100 WBC (Bld) 20.0 % Normal . [facility] Comment on above: Performed By: #### P TT, CBC, PT, BNP, CMP, HS TROP, CK #### [address] MCH (RBC) [Entitic mass] 22.8 pg Low 27.5-35.2 [facility] Comment on above: Performed By: #### P TT, CBC, PT, BNP, CMP, HS TROP, CK #### [address] MCV (RBC) [Entitic vol] 70.6 fL Low 83.5-101 [facility] Comment on above: Performed By: #### P TT, CBC, PT, BNP, CMP, HS TROP, CK #### [address] Mean Corpuscular HGB Conc 32.4 g/dL Low 32.5-35.6 [facility] Comment on above: Performed By: #### P TT, CBC, PT, BNP, CMP, HS TROP, CK #### [address] Monocytes (Bld) [#/Vol] 1.0 10*3/uL High 0.0-0.8 [facility] Comment on above: Performed By: #### P TT, CBC, PT, BNP, CMP, HS TROP, CK #### [address] Monocytes/100 WBC (Bld) 18.12 % Normal 0.00-20.00 [facility] Comment on above: Performed By: #### P TT, CBC, PT, BNP, CMP, HS TROP, CK #### [address] Monocytes/100 WBC (Bld) 10.2 % Normal . [facility] Comment on above: Performed By: #### P TT, CBC, PT, BNP, CMP, HS TROP, CK #### [address] Neutrophils (Bld) [#/Vol] 6.2 10*3/uL Normal 1.8-7.7 [facility] Comment on above: Performed By: #### P TT, CBC, PT, BNP, CMP, HS TROP, CK #### [facility] [address] Neutrophils/100 WBC (Bld) 65.4 % Normal . [facility] Comment on above: Performed By: #### P TT, CBC, PT, BNP, CMP, HS TROP, CK #### [facility] [address] NRBC% 0.1 /100{WBC} Normal 0-0.5 [facility] Comment on above: Performed By: #### P TT, CBC, PT, BNP, CMP, HS TROP, CK #### [facility] [address] Platelet mean volume (Bld) [Entitic vol] 9.1 fL Normal 6.6-10.1 [facility] Comment on above: Performed By: #### P TT, CBC, PT, BNP, CMP, HS TROP, CK #### [facility] [address] Platelets (Bld) [#/Vol] 233 10*3/uL Normal 150-450 [facility] Comment on above: Performed By: #### P TT, CBC, PT, BNP, CMP, HS TROP, CK #### [address] RBC (Bld) [#/Vol] 4.63 10*6/uL Normal 3.90-5.60 [facility] Comment on above: Performed By: #### P TT, CBC, PT, BNP, CMP, HS TROP, CK #### [facility] [address] WBC (Bld) [#/Vol] 9.5 10*3/uL Normal 4.1-10.5 [facility] Comment on above: Performed By: #### P TT, CBC, PT, BNP, CMP, HS TROP, CK #### [address] Comprehensive Metabolic Pane guy 07-12-2023 Albumin [Mass/Vol] 3.9 g/dL Normal 3.5-5.7 [facility] Comment on above: Performed By: #### P TT, CBC, PT, BNP, CMP, HS TROP, CK #### [address] Albumin/Globulin [Mass ratio] 1.3 {ratio} Normal [facility] Comment on above: Performed By: #### P TT, CBC, PT, BNP, CMP, HS TROP, CK #### [address] ALP [Catalytic activity/Vol] 106 U/L High 34-104 [facility] Comment on above: Performed By: #### P TT, CBC, PT, BNP, CMP, HS TROP, CK #### [address] ALT [Catalytic activity/Vol] 9 U/L Normal 7-52 [facility] Comment on above: Performed By: #### P TT, CBC, PT, BNP, CMP, HS TROP, CK #### [address] Anion gap [Moles/Vol] 13.4 mmol/L Normal 6.0-15.[address] [facility] Comment on above: Performed By: #### P TT, CBC, PT, BNP, CMP, HS TROP, CK #### [address] AST [Catalytic activity/Vol] 8 U/L Low 13-39 [facility] Comment on above: Performed By: #### P TT, CBC, PT, BNP, CMP, HS TROP, CK #### [address] Bilirubin [Mass/Vol] 0.4 mg/dL Normal 0.3-1.0 [facility] Comment on above: Performed By: #### P TT, CBC, PT, BNP, CMP, HS TROP, CK #### [address] Calcium [Mass/Vol] 8.5 mg/dL Low 8.6-10.3 [facility] Comment on above: Performed By: #### P TT, CBC, PT, BNP, CMP, HS TROP, CK #### [address] Chloride [Moles/Vol] 102 mmol/L Normal 98-107 [facility] Comment on above: Performed By: #### P TT, CBC, PT, BNP, CMP, HS TROP, CK #### [address] CO2 [Moles/Vol] 24.5 mmol/L Normal 21.0-31.0 [facility] Comment on above: Performed By: #### P TT, CBC, PT, BNP, CMP, HS TROP, CK #### [address] Creatinine [Mass/Vol] 1.82 mg/dL High 0.70-1.30 [facility] Comment on above: Performed By: #### P TT, CBC, PT, BNP, CMP, HS TROP, CK #### [address] Creatinine Clr Calc Pharmacy 54.64 Normal [facility] Comment on above: Result Comment: PERF ORMED BY: [place] [address] PATHOLOGIST [employer] P[employer]ING MACHINE TENDER CLIFFORD LOBATO M.D. Performed By: #### P TT, CBC, PT, BNP, CMP, HS TROP, CK #### [address] GFR/1.73 sq M.predicted MDRD (S/P/Bld) [Vol rate/Area] 42.789 mL/min/{1.73_m2} Normal [facility] Comment on above: Performed By: #### P TT, CBC, PT, BNP, CMP, HS TROP, CK #### [address] Globulin (S) [Mass/Vol] 3.1 g/dL Normal [facility] Comment on above: Performed By: #### P TT, CBC, PT, BNP, CMP, HS TROP, CK #### [facility] [address] Glucose [Mass/Vol] 302 mg/dL High 70-100 [facility] Comment on above: Result Comment: Eek Glucose Reference Range is dependent on time and content of last meal. Glucose of more than 200 mg/dL in a nonstressed, ambulatory subject supports the diagnosis of Diabetes Mellitus. ADA recommended reference range Performed By: #### P TT, CBC, PT, BNP, CMP, HS TROP, CK #### [address] Potassium [Moles/Vol] 3.9 mmol/L Normal 3.5-5.1 [facility] Comment on above: Performed By: #### P TT, CBC, PT, BNP, CMP, HS TROP, CK #### [address] Protein [Mass/Vol] 7.0 g/dL Normal 6.4-8.9 [facility] Comment on above: Performed By: #### P TT, CBC, PT, BNP, CMP, HS TROP, CK #### [place] [address] [place] Sodium [Moles/Vol] 136 mmol/L Normal 136-145 [facility] Comment on above: Performed By: #### P TT, CBC, PT, BNP, CMP, HS TROP, CK #### [place] [address] [place] Urea nitrogen [Mass/Vol] 16 mg/dL Normal 7-25 [facility] Comment on above: Performed By: #### P TT, CBC, PT, BNP, CMP, HS TROP, CK #### [place] [address] [place] Creatine Kinaseon 07-12-2023 CK [Catalytic activity/Vol] 55 U/L Normal 30-223 [facility] Comment on above: Performed By: #### P TT, CBC, PT, BNP, CMP, HS TROP, CK #### [place] [address] [place] Creatine kinase [Enzymatic a ctivity/volume] in Serum or PlasmaOrdered By: Nancy Wilson on 07-12-2023 CK [Catalytic activity/Vol] 55 U/L 30-223 [facility] Creatinine [Mass/volume] in Serum or PlasmaOrdered By: Nancy Wilson on 07-12-2023 Creatinine [Mass/Vol] 1.82 mg/dL 0.70-1.30 [facility] ECG 12 lead ECGon 07-12-[address]23 [address] [facility] [place] [address] Electrocardiograph Report Signed Patient: Solomon Feldman SR MR#: [id number] : 1965 Acct:[id number] Age/Sex: 57 / M ADM Date: 07/12/23 Loc: ER Room: Type: [facility] ER Attending Dr: Ordering Provider: [...] Nancy Wilson MD 01/26 0135 Normal [facility] Eosinophils Auto (Bld) [#/Vo l]Ordered By: Nancy Wilson on 07-12-2023 Eosinophils (Bld) [#/Vol] 0.3 10*3/uL 0.0-0.45 [facility] Eosinophils/100 WBC Auto (Bl d)Ordered By: Nancy Wilson on 07-12-2023 Eosinophils/100 WBC (Bld) 3.3 % . [facility] Erythrocyte distribution wid th Auto (RBC) [Ratio]Ordered By: Nancy Wilson on 07-12-2023 Erythrocyte distribution width (RBC) [Ratio] 17.1 % 12.0-14.8 [facility] Globulin Calc (S) [Mass/Vol] Ordered By: Nancy Wilson on 07-12-2023 Globulin (S) [Mass/Vol] 3.1 g/dL [facility] Glucose [Mass/volume] in Ser um or PlasmaOrdered By: Nancy Wilson on 07-12-2023 Glucose [Mass/Vol] 302 mg/dL 70-100 [facility] Comment on above: ADA recommended refe rence rangeRandom Glucose Reference Range is dependent on time and content of last meal. Glucose of more than 200 mg/dL in a nonstressed, ambulatory subject supports the diagnosis of Diabetes Mellitus. Hematocrit Auto (Bld) [Volum e fraction]Ordered By: Nancy Wilson on 07-12-2023 Hematocrit (Bld) [Volume fraction] 32.7 % 38.8-50.0 [facility] Hemoglobin [Mass/volume] in BloodOrdered By: Nancy Wilson on 07-12-2023 Hemoglobin (Bld) [Mass/Vol] 10.6 g/dL 13.0-17.0 [facility] INR in Platelet poor plasma by Coagulation assayOrdered By: Nancy Wilson on 07-12-2023 INR Coag (PPP) [Relative time] 1.1 {INR} [facility] Comment on above: INR Therapeutic [...] RBC Auto (Bld) [#/Vol] 9.5 10*3/uL 4.1-10.5 [facility] Lymphocytes Auto (Bld) [#/Vo l]Ordered By: Nancy Wilson on 07-12-2023 Lymphocytes (Bld) [#/Vol] 1.9 10*3/uL 1.00-4.8 [facility] Lymphocytes/100 WBC Auto (Bl d)Ordered By: Nancy Wilson on 07-12-2023 Lymphocytes/100 WBC (Bld) 20.0 % . [facility] MCH Auto (RBC) [Entitic mass ]Ordered By: Nancy Wilson on 07-12-2023 MCH (RBC) [Entitic mass] 22.8 pg 27.5-35.2 [facility] MCHC Auto (RBC) [Mass/Vol]Or dered By: Nancy Wilson on 07-12-2023 MCHC (RBC) [Mass/Vol] 32.4 g/dL 32.5-35.6 [facility] MCV Auto (RBC) [Entitic vol] Ordered By: Nancy Wilson on 07-12-2023 MCV (RBC) [Entitic vol] 70.6 fL 83.5-101 [facility] Monocyte distribution width [Entitic volume] in Blood by AutomatedOrdered By: Nancy Wilson on 07-12-2023 Monocyte distribution width Auto (Bld) [Entitic vol] 18.12 % 0.00-20.00 [facility] Monocytes Auto (Bld) [#/Vol] Ordered By: Nancy Wilson on 07-12-2023 Monocytes (Bld) [#/Vol] 1.0 10*3/uL 0.0-0.8 [facility] Monocytes/100 WBC Auto (Bld) Ordered By: Nancy Wilson on 07-12-2023 Monocytes/100 WBC (Bld) 10.2 % . [facility] Natriuretic peptide B [Mass/ Vol]Ordered By: Nancy Wilson on 07-12-2023 Natriuretic peptide B (Bld) [Mass/Vol] 34.0 pg/mL 5-100 [facility] Neutrophils Auto (Bld) [#/Vo l]Ordered By: Nancy Wilson on 07-12-2023 Neutrophils (Bld) [#/Vol] 6.2 10*3/uL 1.8-7.7 [facility] Neutrophils/100 WBC Auto (Bl d)Ordered By: Nancy Wilson on 07-12-2023 Neutrophils/100 WBC (Bld) 65.4 % . [facility] No Panel InformationOrdered By: Nancy Wilson on 07-12-2023 Estimated GFR (CKD-EPI) 42.789 mL/Min [facility] Creatinine Clearance (Chem 54.64 [facility] Nucleated erythrocytes [Pres ence] in Blood by Automated countOrdered By: Nancy Wilson on 07-12-2023 Nucleated RBC Auto Ql (Bld) 0.1 /100{WBC} 0-0.5 [facility] Partial Thromboplastin Timeo n 07-12-2023 aPTT Coag (Bld) [Time] 29.4 s Normal 25.1-36.5 [facility] Comment on above: Result Comment: A he matocrit value greater than 55% may lead to inaccurate results in coagulation testing. Patients having hematocrit values >55% require a special collection tube for coagulation studies. Please contact the laboratory at [phone] for redraw instructions. PERFORMED BY: [facility] [address] [place] [address] PATHOLOGIST BL[employer] PACKING MACHINE TENDER CLIFFORD LOBATO M.D. Performed By: #### P TT, CBC, PT, BNP, CMP, HS TROP, CK ####[facility] [address] Platelet mean volume Auto (B ld) [Entitic vol]Ordered By: Nancy Wilson on 07-12-2023 Platelet mean volume (Bld) [Entitic vol] 9.1 fL 6.6-10.1 [facility] Platelets Auto (Bld) [#/Vol] Ordered By: Nancy Wilson on 07-12-2023 Platelets (Bld) [#/Vol] 233 10*3/uL 150-450 [facility] Potassium [Moles/volume] in Serum or PlasmaOrdered By: Nancy Wilson on 07-12-2023 Potassium [Moles/Vol] 3.9 mmol/L 3.5-5.1 [facility] Protein [Mass/volume] in Ser um or PlasmaOrdered By: Nancy Wilson on 07-12-2023 Protein [Mass/Vol] 7.0 g/dL 6.4-8.9 [facility] Prothrombin Time INRon 07-12 INR Coag (PPP) [Relative time] 1.1 {INR} Normal [facility] Comment on above: Result [...] PT, BNP, CMP, HS TROP, CK #### [facility] [address] [place] [id number] [facility] PT Coag (PPP) [Time] 12.1 s Normal 9.0-12.9 [facility] Comment on above: Result Comment: A he matocrit value greater than 55% may lead to inaccurate results in coagulation testing. Patients having hematocrit values >55% require a special collection tube for coagulation studies. Please contact the laboratory at [phone] for redraw instructions. Performed By: #### P TT, CBC, PT, BNP, CMP, HS TROP, CK #### [facility] [address] [place] [id number] [facility] Prothrombin time (PT)Ordered By: Nancy Wilson on 07-12-2023 PT Coag (PPP) [Time] 12.1 s 9.0-12.9 [facility] Comment on above: A hematocrit value g reater than 55% may lead to inaccurate results in coagulation testing. Patients having hematocrit values >55% require a special collection tube for coagulation studies. Please contact the laboratory at [phone] for redraw instructions. RBC Auto (Bld) [#/Vol]Ordere d By: Nancy Wilson on 07-12-2023 RBC (Bld) [#/Vol] 4.63 10*6/uL 3.90-5.60 [facility] Serum or plasma albumin/glob ulin mass ratioOrdered By: Nancy Wilson on 07-12-2023 Albumin/Globulin [Mass ratio] 1.3 {ratio} [facility] Serum or plasma anion gap de terminationOrdered By: Nancy Wilson on 07-12-2023 Anion gap [Moles/Vol] 13.4 mmol/L 6.0-15.0 [facility] Sodium [Moles/volume] in Ser um or PlasmaOrdered By: Nancy Wilson on 07-12-2023 Sodium [Moles/Vol] 136 mmol/L 136-145 [facility] Troponin I High Sensitivityo n 07-12-2023 Troponin I High Sensitivity 4.6 pg/mL Normal 0.0-20.0 [facility] Comment on above: Result Comment: PERF ORMED BY: [place] [address] PATHOLOGIST BL[employer] P[employer]ING MACHINE TENDER CLIFFORD LOBATO M.D. Performed By: #### P TT, CBC, PT, BNP, CMP, HS TROP, CK #### [address] Troponin I.cardiac [Mass/vol ume] in Serum or Plasma by Detection limit <= 0.01 ng/Ordered By: Nancy Wilson on 07-12-2023 Troponin I.cardiac DL <= 0.01 ng/mL [Mass/Vol] 4.6 pg/mL 0.0-20.0 [facility] Urea nitrogen [Mass/volume] in Serum or PlasmaOrdered By: Nancy Wilson on 07-12-2023 Urea nitrogen [Mass/Vol] 16 mg/dL 7-25 [facility] WBC Auto (Bld) [#/Vol]Ordere d By: Nancy Wilson on 07-12-2023 WBC (Bld) [#/Vol] 9.5 10*3/uL 4.1-10.5 [facility] XR chest 1V portableon 07-[address] [facility] [place] [address] [place] [address] XRay Report Signed Patient: Solomon Feldman SR MR#: [id number] : 1965 Acct:[id number] Age/Sex: 57 / M ADM Date: 07/12/23 [...] Sudeep Lind M.D.07/12/2023 5:08 PM Dictation Location: [facility]--05 Transcribed By: [facility] 07/12/231707 Dictated By: Sudeep Lind DO 07/12/231706 Signed By: 07/12/231707 Normal [facility] Patient Educationon 06-02- 23 Patient Education Urology Benign Prostatic Hyperplasia [...] Follow these instructions at home: ? Take hvsx-kmz-jlpuycz and prescription medicines only as told by [...] the medicine (more content not included)... Normal [facility] Retail - Clinical Noteon Retail - Clinical Note [id number]#1.00TIFF Normal [facility] Urology Office/Clinic Noteon 06-02-2023 Urology Office/Clinic Note Chief Complaint S/p to Cysto HPI Staff Sp to Cysto done @ [facility] on 02/14/23- Has not noticed any difference- [...] Contact Information SOLEDAD HERRERA, Yeyo Blum, URL [facility] [place] [id number]- Additional Instructions: 1 month w/ cath volumes Patient Education Benign Prostatic Hyperplasia Mattie Watkins, personally scribed for Dr. Rowe on 06/02/2023 [...] heart failure) (more content not included)... Normal [facility] Comment on above: Result Comment: Elec tronically Signed By: Yeyo ROWE MD\.br\Date and Time Signed: 06/02/23 12:16 EST\.br\Electronically Co-Signed By: Mattie Foster\.br\Date and Time Co-Signed: 06/02/23 12:04 EST Patient Educationon 05-03-[address] [facility] Pathology Noteon 05-01-2023 Pathology Note [id number]#1.00TIFF Normal [facility] Lab Reportson 04-14-2023 Lab Reports [id number]#1.00TIFF Normal [facility] Operative Reporton Operative Report [id number]#1.00TIFF Normal [facility] Patient Correspondenceon Patient Correspondence [id number]#1.00TIFF Normal [facility] Lab Reportson 03-31-2023 Lab Reports [id number]#1.00TIFF Normal [facility] RAD - MISCon 03-31-2023 RAD - MISC [id number]#1.00TIFF Normal [facility] Patient Correspondenceon Patient Correspondence [id number]#1.00TIFF Normal [facility] Formson 03-23-2023 Forms [id number]#1.00TIFF Normal [facility] A1C HEMOGLOBINon 03-15-2023 HbA1c (Bld) [Mass fraction] 7.5 % [employer] Other HbA1c (Bld) [Mass fraction]o n 03-15-2023 A1C HEMOGLOBIN [employer] Other Lab Reportson 03-09-2023 Lab Reports [id number]#1.00TIFF [facility] Consultation Noteon 02-27-20 Consultation Note [id number]#1.00CD:12 7 [facility] Consent for Procedure/Surger yon 02-15-2023 Consent for Procedure/Surgery [id number]#1.00CD:12 7 [facility] Office Visit (Cardiology)on 02-15-2023 Follow-up visit [...] in adult Healthy Weight Tips; Status:Complete; Done: [id number] Patient Instructions Please bring all medicines, vitamins, [...] Sia HERRERA, (more content not included)... Normal [facility] Tobacco Screening.on 023 Fall risk assessment c) Not medically indicated -[facility] y 250 DO Work Phone: Tobacco use status CP b) No -[facility] 250 DO Work Phone: Tobacco Screening. Yes [facility] 250 DO Work Phone: Consent for Procedure/Surger yon 02-14-2023 Consent for Procedure/Surgery [id number]#1.00CD:1 27 [facility] Consent for Procedure/Surgery [id number]#1.00CD:1 27 [facility] Consent for Treatmenton 02-03 Consent for Treatment [id number]#1.00CD:12 7 [facility] IntraOperative Documentson 0 02-14-2023 IntraOperative Documents [id number]#1.00CD:1 27 [facility] IntraOperative Documents [id number]#1.00CD:1 27 [facility] Main [place] Intraoperative Recor don 02-14-2023 Main OR Intraoperative Record IntraOp Document Type FTURO Summary Primary Physician: Yeyo ROWE MD Finalized Date/Time: 02/14/23 10:18:58 Pt. Name: SOLOMON FELDMAN SR/Sex: 1965 Male Med Rec #: [id number] Physician: Yeyo ROWE MD Financial #: [id number] Pt. Type: O Room/Bed: / Admit/Disch: 02/14/23 08:34:46 - Institution: Case Times FTURO Entry 1 Patient Times In Room 02/14/23 09:29:00 Out Room 02/14/23 09:49:00 Procedure Times Start 02/14/23 09:42:00 Stop 02/14/23 09:45:00 Anesthesia Times Last Modified By: Chandrika Martínez RN 02/14/23 09:45:24 Case Attendance FTURO Entry 1 Entry 2 Entry 3 Case Attendee SOLEDAD HERRERA, Yeyo Martínez RN, Sheri Nguyen CST Role Performed Surgeon - Primary Healthcare Manager - Primary Scrub - Primary Time [...] 09:45 Chandrika Martínez RN 02/14/23 10:[address] [facility] Main [place] Preoperative Recordo n 02-14-2023 Main [place] Preoperative Record Holding Area Document Type FTURO Summary Primary Physician: Yeyo ROWE MD Finalized Date/Time: 02/14/23 09:01:37 Pt. Name: MATTEO SOLOMON CHRISTIAN./Sex: 1965 Male Med Rec #: [id number] Physician: Yeyo ROWE MD Financial #: [id number] Pt. Type: O Room/Bed: / Admit/Disch: 02/14/23 [...] By: Sheri Bolivar RN 02/14/23 09:[address] [facility] Operative Reporton 3 Operative Report Patient: Joe FELDMAN SR Age: [...] with antibiotic coverage, Follow up arranged. Normal [facility] Comment on above: Result Comment: Elec tronically Signed By: Yeyo ROWE MD\.br\Date and Time Signed: 02/14/23 09:52 EDT Patient Educationon 02-15-20 23 Patient Education Urology Transurethral Resection of the [...] including vitamins, herbs, eye drops, creams, and ewme-sfv-sgthytv medicines. ? Any problems you or family [...] tells you to take them. ? Taking hpul-rdy-kxscpud medicines, vitamins, herbs, and supplements. Surgery safety [...] health care (more content not included)... Normal [facility] Progress Note-Physicianon Progress Note-Physician Patient: SOLOMON [...] mg = 1 tab(s), PRN, SubLingual, q5min [place] 325 mg-5 mg oral tablet 1 tab(s), [...] 278.00 / Possible Fibromyalgia / SNOMED CT [id number] / Confirmed Restless leg / ICD-9-CM 333.94 / Confirmed Arthritis / SNOMED CT [id number]-Q [id number] / Confirmed Hyperlipidemia / SNOMED CT 64171324 / Confirmed Smoker / SNOMED CT [id number]-L [id number] / Confirmed Added secondary to documentation in Social History. Asthma / SNOMED CT 236105080 / Confirmed COPD type A / SNOMED CT 018390825 / Confirmed Head ache / SNOMED CT 10241553 / Confirmed Heart attack / SNOMED CT 64798067 / Confirmed Heart disease / SNOMED CT 30429651 / Confirmed Heart murmur / SNOMED CT 245592878 / Confirmed Urinary retention / SNOMED CT 030946601 / Confirmed BPH with obstruction/lower urinary tract symptoms / SNOMED CT 3410335369 / Confirmed Orchitis / SNOMED CT 565848108 / Confirmed Gross hematuria / SNOMED CT 803202321 / Confirmed Tobacco use / SNOMED CT [id number]-I5E7-0 17615MV1NO2 / Confirmed Added secondary to social history documentation. Histories Past Medical History: Active Fibromyalgia ([id number]- [id number]) Restless leg (333.94) Arthritis ([id number]- [id number]) Hyperlipidemia (99173776) Resolved HTN [Hypertension] (401.9): Resolved. NIDDM (250.00): Resolved. GERD [Gastroesophageal reflux disease] (530.81): Resolved. CHF (congestive heart failure) ([id number]-[id number]-7B90- [id number]): Resolved. LA (myocardial infarction) (683O1IAF-62W5-9Z9B-1C66- 24473K50K7AX): Resolved. Family History: Diabetes mellitus Mother Heart disease Mother Alcoholism Brother Drug addiction Brother Acute myocardial infarction Mother Grandparent Procedure history: Bilateral Eye Surgery. Comments: 07/10/2014 17:25 ALESHA Cormier RN, Kati bilateral cataracts with iol implants Bilateral Carpal Tunnel Surgery. cardiac stents. Appendectomy ([id number]). Colonoscopy ([id number]). Cataract extraction and insertion of intraocular lens ([id number]). Procedure on back ([id number]). Social History Social & Psychosocial Habits Alcohol [...] procedure such (more content not included)... Normal [facility] Comment on above: Result Comment: Elec tronically Signed By: SOLEDAD HERRERA, Yeyo Blum\.br\Date and Time Signed: 02/14/23 09:58 EDT Consent for Treatmenton - Consent for Treatment [id number] [facility] Ambulatory Visit Summaryon 0 01-30-2023 Ambulatory Visit Summary MATTEO CHRISTIAN, SOLOMON Daniel :1965 Visit Date:01/30/2023 Ambulatory Visit Instructions Your Diagnosis Urinary retention Gross hematuria BPH with obstruction/lower urinary tract symptoms Orchitis Your Care Team Attending Physician - Yeyo ROWE MD Primary Care Physician - JENARO LYNCH DO This Is Your Medications List Contact prescribing physician if questions or concerns acetaminophen-hydrocodone ([place] 325 mg-5 mg oral tablet) albuterol (ProAir [...] Where: [facility] [address] , [place] [phone] Medications What How Much When Instructions Unchanged acetaminophen-hydrocodone ([place] 325 mg-5 mg oral tablet) 1 Tablets [...] or vivian (more content not included)... Normal [facility] Patient Educationon 01-31-20 Patient Education Urology [...] including vitamins, herbs, eye drops, creams, and [id number] medicines. ? Whether you are or may [...] be (more content not included)... Normal [facility] Urology Office/Clinic Noteon 01-30-2023 Urology [...] [facility] [address], [place] [address] [phone] Additional Instructions: sched cysto/uros Patient Education Urodynamic [...] failure) GERD [Gastroesophageal reflux disease] HTN [Hypertension] LA (myocardial infarction) NIDDM Procedure/Surgical History Appendectomy, Bilateral [...] mg, BID (more content not included)... Normal [facility] Comment on above: Result Comment: Elec tronically Signed By: Saima Sutton\.br\Date and Time Signed: 01/30/23 11:38 EDT [facility] CARDIAC STRESS/REST INJE CTIONon 01-25-2023 [facility] CARDIAC STRESS/REST INJECTION Patient Name: SOLOMON FELDMAN STUDY: MYOCARDIAL PERFUSION STRESS TEST WITH EXERCISE CONVERTED TO LEXISCAN Performing facility: [facility], [address] [place] [address], Suite [facility], [address] Provider: Dolores Feldman RN, CONSOLIDATION ACCOUNTANT PCP: Dr. Jenaro Lynch Supervising provider: Pascale Arnold MD, [facility] INDICATION: Anginal equivalent CAD; HISTORY: Gender: M; Age: 57 y/o ; Height: 182.88 cm; Weight: 97.0032341 kg. High Cholesterol; CAD; Diabetes; HTN; Palpitations; Chest Pain; Quit smoking unknown years ago. COMPARISON: Previous nuclear testing completed at [facility]. ACCESSION NUMBER(S): [id number]; [id number]; [id number] ORDERING CLINICIAN: DOLORES FELDMAN TECHNIQUE: ONE DAY [...] study. Electronically signed by: PASCALE ARNOLD MD [facility] No Panel Informationon 01-25 Normal [facility] [address] 250 DO [...] contact the office if new symptoms arise. PIE TOPPER after procedure Chief Complaint Routine f/u: 'I [...] Cataract surg (more content not included)... Normal [facility] Tobacco Screening.on 023 Adult depression screening assessment No [facility] Heart-[facility] 600 DO Work Phone: Tobacco use status CPHS b) No [facility] 600 DO Work Phone: Ambulatory Visit Summaryon 0 12-28-2022 Ambulatory Visit Summary SOLOMON FELDMAN SR :1965 Visit Date:12/28/2022 Ambulatory Visit Instructions Your Care Team Attending Physician - Yeyo ROWE MD Primary Care Physician - JENARO LYNCH DO This Is Your Medications List acetaminophen-hydrocodone ([place] 325 mg-5 mg oral tablet) albuterol (ProAir [...] HERRERA, Yeyo Blum Where: [facility] Normal [facility] Alanine aminotransferase [En zymatic activity/volume] in Serum or PlasmaOrdered By: Jenaro Lynch on 09-27-2022 ALT [Catalytic activity/Vol] 15 U/L 7-52 [facility] Albumin [Mass/volume] in Ser um or Plasma by Bromocresol green (BCG) dye binding methoOrdered By: Jenaro Lynch on 09-27-2022 Albumin BCG dye [Mass/Vol] 4.1 g/dL 3.5-5.7 [facility] Alkaline phosphatase [Enzyma tic activity/volume] in Serum or PlasmaOrdered By: Jenaro Lynch on 09-27-2022 ALP [Catalytic activity/Vol] 116 U/L 34-104 [facility] Aspartate aminotransferase [ Enzymatic activity/volume] in Serum or PlasmaOrdered By: Jenaro Lynch on 09-27-2022 AST [Catalytic activity/Vol] 15 U/L 13-39 [facility] Basophils Auto (Bld) [#/Vol] Ordered By: Jenaro Lynch on 09-27-2022 Basophils (Bld) [#/Vol] 0.1 10*3/uL 0.0-0.2 [facility] Basophils/100 WBC Auto (Bld) Ordered By: Jenaro Lynch on 09-27-2022 Basophils/100 WBC (Bld) 1.1 % . [facility] Bilirubin.total [Mass/volume ] in Serum or PlasmaOrdered By: Jenaro Lynch on 09-27-2022 Bilirubin [Mass/Vol] 0.4 mg/dL 0.3-1.0 [facility] Calcium [Mass/volume] in Ser um or PlasmaOrdered By: Jenaro Lynch on 09-27-2022 Calcium [Mass/Vol] 8.8 mg/dL 8.6-10.3 [facility] Carbon dioxide, total [Moles /volume] in Serum or PlasmaOrdered By: Jenaro Lynch on 09-27-2022 CO2 [Moles/Vol] 27.2 mmol/L 21.0-31.0 [facility] Chloride [Moles/volume] in S ilia or PlasmaOrdered By: Jenaro Lynch on 09-27-2022 Chloride [Moles/Vol] 99 mmol/L 98-107 [facility] Cholesterol [Mass/volume] in Serum or PlasmaOrdered By: Jenaro Lynch on 09-27-2022 Cholesterol [Mass/Vol] 104 mg/dL 140-200 [facility] Comment on above: Chol less than 200 m g/dl low riskChol 201-239 mg/dl borderline riskChol 240 mg/dl and greater high risk Cholesterol in LDL Calc [Mas s/Vol]Ordered By: Jenaro Lynch on 09-27-2022 Cholesterol in LDL [Mass/Vol] TNP [facility] Comment on above: Test not performed Cholesterol in LDL [Mass/vol ume] in Serum or PlasmaOrdered By: Jenaro Lynch on 09-27-2022 Cholesterol in LDL [Mass/Vol] 38 mg/dL 0-100 [facility] Comment on above: LDL ATP III CLASSIFI CATIONLDL less than 100 mg/dL OptimalLDL 100-129 mg/dL Near or above optimalLDL 130-159 mg/dL Borderline highLDL 160-189 mg/dL HighLDL greater than 189 mg/dL Very high Cholesterol in VLDL Calc [Ma ss/Vol]Ordered By: Jenaro Lynch on 09-27-2022 Cholesterol in VLDL [Mass/Vol] 99 mg/dL [facility] Creatinine [Mass/volume] in Serum or PlasmaOrdered By: Jenaro Lynch on 09-27-2022 Creatinine [Mass/Vol] 1.84 mg/dL 0.70-1.30 [facility] Eosinophils Auto (Bld) [#/Vo l]Ordered By: Jenaro Lynch on 09-27-2022 Eosinophils (Bld) [#/Vol] 0.7 10*3/uL 0.0-0.45 [facility] Eosinophils/100 WBC Auto (Bl d)Ordered By: Jenaro Lynch on 09-27-2022 Eosinophils/100 WBC (Bld) 5.9 % . [facility] Erythrocyte distribution wid th Auto (RBC) [Ratio]Ordered By: Jenaro Lynch on 09-27-2022 Erythrocyte distribution width (RBC) [Ratio] 16.0 % 12.0-14.8 [facility] Globulin Calc (S) [Mass/Vol] Ordered By: Jenaro Lynch on 09-27-2022 Globulin (S) [Mass/Vol] 2.9 g/dL [facility] Glucose [Mass/volume] in Ser um or PlasmaOrdered By: Jenaro Lynch on 09-27-2022 Glucose [Mass/Vol] 225 mg/dL 70-100 [facility] Comment on above: ADA recommended refe rence rangeRandom Glucose Reference Range is dependent on time and content of last meal. Glucose of more than 200 mg/dL in a nonstressed, ambulatory subject supports the diagnosis of Diabetes Mellitus. Hematocrit Auto (Bld) [Volum e fraction]Ordered By: Jenaro Lynch on 09-27-2022 Hematocrit (Bld) [Volume fraction] 41.0 % 38.8-50.0 [facility] Hemoglobin [Mass/volume] in BloodOrdered By: Jenaro Lynch on 09-27-2022 Hemoglobin (Bld) [Mass/Vol] 13.2 g/dL 13.0-17.0 [facility] Leukocytes [#/volume] correc jorge for nucleated erythrocytes in Blood by Automated counOrdered By: Jenaro Lynch on 09-27-2022 WBC corrected for nucl RBC Auto (Bld) [#/Vol] 12.4 10*3/uL 4.1-10.5 [facility] Lymphocytes Auto (Bld) [#/Vo l]Ordered By: Jenaro Lynch on 09-27-2022 Lymphocytes (Bld) [#/Vol] 2.3 10*3/uL 1.00-4.8 [facility] Lymphocytes/100 WBC Auto (Bl d)Ordered By: Jenaro Lynch on 09-27-2022 Lymphocytes/100 WBC (Bld) 18.2 % . [facility] MCH Auto (RBC) [Entitic mass ]Ordered By: Jenaro Lynch on 09-27-2022 MCH (RBC) [Entitic mass] 23.9 pg 27.5-35.2 [facility] MCHC Auto (RBC) [Mass/Vol]Or dered By: Jenaro Lynch on 09-27-2022 MCHC (RBC) [Mass/Vol] 32.2 g/dL 32.5-35.6 [facility] MCV Auto (RBC) [Entitic vol] Ordered By: Jenaro Lynch on 09-27-2022 MCV (RBC) [Entitic vol] 74.3 fL 83.5-101 [facility] Monocytes Auto (Bld) [#/Vol] Ordered By: Jenaro Lynch on 09-27-2022 Monocytes (Bld) [#/Vol] 1.0 10*3/uL 0.0-0.8 [facility] Monocytes/100 WBC Auto (Bld) Ordered By: Jenaro Lynch on 09-27-2022 Monocytes/100 WBC (Bld) 7.9 % . [facility] Neutrophils Auto (Bld) [#/Vo l]Ordered By: Jenaro Lynch on 09-27-2022 Neutrophils (Bld) [#/Vol] 8.3 10*3/uL 1.8-7.7 [facility] Neutrophils/100 WBC Auto (Bl d)Ordered By: Jenaro Lynch on 09-27-2022 Neutrophils/100 WBC (Bld) 66.9 % . [facility] No Panel InformationOrdered By: Jenaro Lynch on 09-27-2022 Estimated GFR (CKD-EPI) 42.232 mL/Min [facility] Creatinine Clearance (Chem N/A [facility] Nucleated erythrocytes [Pres ence] in Blood by Automated countOrdered By: Jenaro Lynch on 09-27-2022 Nucleated RBC Auto Ql (Bld) 0.1 /100{WBC} 0-0.5 [facility] Platelet mean volume Auto (B ld) [Entitic vol]Ordered By: Jenaro Lynch on 09-27-2022 Platelet mean volume (Bld) [Entitic vol] 9.1 fL 6.6-10.1 [facility] Platelets Auto (Bld) [#/Vol] Ordered By: Jenaro Lynch on 09-27-2022 Platelets (Bld) [#/Vol] 209 10*3/uL 150-450 [facility] Potassium [Moles/volume] in Serum or PlasmaOrdered By: Jenaro Lynch on 09-27-2022 Potassium [Moles/Vol] 4.3 mmol/L 3.5-5.1 [facility] Protein [Mass/volume] in Ser um or PlasmaOrdered By: Jenaro Lynch on 09-27-2022 Protein [Mass/Vol] 7.0 g/dL 6.4-8.9 [facility] RBC Auto (Bld) [#/Vol]Ordere d By: Jenaro Lynch on 09-27-2022 RBC (Bld) [#/Vol] 5.52 10*6/uL 3.90-5.60 [facility] Serum or plasma albumin/glob ulin mass ratioOrdered By: Jenaro Lynch on 09-27-2022 Albumin/Globulin [Mass ratio] 1.4 {ratio} [facility] Serum or plasma anion gap de terminationOrdered By: Jenaro Lynch on 09-27-2022 Anion gap [Moles/Vol] 14.1 mmol/L 6.0-15.0 [facility] Serum or plasma high density lipoprotein (HDL) cholesterol measurementOrdered By: Jenaro Lynch on 09-27-2022 Cholesterol in HDL [Mass/Vol] 21 mg/dL 29-71 [facility] Comment on above: HDL CHOL ATP-III CLA SSIFICATION Cardiovascular RiskHDL > or equal to 60 mg/dL LOWHDL < 40 mg/dL HIGH Serum or plasma total choles terol/high density lipoprotein (HDL) cholesterol mass ratOrdered By: Jenaro Lynch on 09-27-2022 Cholesterol.total/Chol esterol in HDL [Mass ratio] 5.0 {ratio} <5.0 [facility] Sodium [Moles/volume] in Ser um or PlasmaOrdered By: Jenaro Lynch on 09-27-2022 Sodium [Moles/Vol] 136 mmol/L 136-145 [facility] Thyrotropin [Units/volume] i n Serum or PlasmaOrdered By: Jenaro Lynch on 09-27-2022 TSH Qn 3.62 m[IU]/L 0.45-5.33 [facility] Triglyceride [Mass/volume] i n Serum or PlasmaOrdered By: Jenaro Lynch on 09-27-2022 Triglyceride [Mass/Vol] 497 mg/dL 0-149 [facility] Comment on above: If the [...] on 09-27-2022 Urate [Mass/Vol] 6.2 mg/dL 2.4-7.6 [facility] Urea nitrogen [Mass/volume] in Serum or PlasmaOrdered By: Jenaro Lynch on 09-27-2022 Urea nitrogen [Mass/Vol] 15 mg/dL 7-25 [facility] WBC Auto (Bld) [#/Vol]Ordere d By: Jenaro Lynch on 09-27-2022 WBC (Bld) [#/Vol] 12.4 10*3/uL 4.1-10.5 [facility] A1C HEMOGLOBINon 02-15-2022 HbA1c (Bld) [Mass fraction] % [employer] Other HbA1c (Bld) [Mass fraction]o n 02-15-2022 A1C HEMOGLOBIN Beulah Condomani Other Tobacco Screening.on 022 Adult depression screening assessment No [facility] y 250 DO Work Phone: Tobacco use status CPHS b) No [facility] y 250 DO Work Phone: A1C HEMOGLOBINon 07-27-2021 HbA1c (Bld) [Mass fraction] 11.8 % [employer] Other HbA1c (Bld) [Mass fraction]o n 07-27-2021 A1C HEMOGLOBIN [employer] Other Vital Signs Date Time Vital Sign Value Performing Clinician Facility 10-24-2023 10:56-0400 Body height 182.9 cm Raulito Inman MD Work Phone: [facility] 10-24-2023 10:56-0400 Diastolic blood pressure 86 mm[Hg] Raulito Inman MD Work Phone: [facility] 10-24-2023 10:56-0400 Heart rate 104 /min Raulito Inman MD Work Phone: [facility] 10-24-2023 10:56-0400 Systolic blood pressure 134 mm[Hg] Raulito Inman MD Work Phone: [facility] 10-23-2023 09:37-0400 Blood Pressure Location Padmini [facility] 10-23-2023 09:37-0400 Diastolic blood pressure 82 mm[Hg] Padmini [facility] 10-23-2023 09:37-0400 Heart rate 107 /min Padmini [facility] 10-23-2023 09:37-0400 SaO2% (BldA) [Mass fraction] 98 % Padmini [facility] 10-23-2023 09:37-0400 Systolic blood pressure 130 mm[Hg] Padmini [facility] 07-31-2023 12:00-0500 Diastolic blood pressure 63 mm[Hg] DO Jenaro Lynch Work Phone: [facility] 07-31-2023 12:00-0500 Heart rate 75 /min DO Jenaro Jetts Work Phone: [facility] 07-31-2023 12:00-0500 Systolic blood pressure 108 mm[Hg] DO Jenarogorge Fraustos Work Phone: [facility] 07-31-2023 08:33-0500 Respiratory rate 18 /min DO Jenaro Jetts Work Phone: [facility] 07-12-2023 18:03-0500 Diastolic blood pressure 73 mm[Hg] DO Jenaro Kuns Work Phone: [facility] 07-12-2023 18:03-0500 Heart rate 76 /min DO Jenaro Jetts Work Phone: [facility] 07-12-2023 18:03-0500 Respiratory rate 20 /min DO Jenarogorge Fraustos Work Phone: [facility] 07-12-2023 18:03-0500 SaO2% (BldA) [Mass fraction] 98 % DO Jenaro Jetts Work Phone: [facility] 07-12-2023 18:03-0500 Systolic blood pressure 125 mm[Hg] DO Jenaro Jetts Work Phone: [facility] 07-12-2023 16:15-0500 Body height 182.88 cm DO Jenaro Lynhc Work Phone: [facility] 07-12-2023 16:15-0500 Body temperature 98.9 [degF] DO Jenaro Lynch Work Phone: [facility] 07-12-2023 16:15-0500 Body weight 99.25 kg DO Jenaro Lynch Work Phone: [facility] 06-02-2023 10:56-0500 Blood Pressure Location Yeyo ROWE [facility] 06-02-2023 10:56-0500 Body temperature 96.98 [degF] Yeyo ROWE [facility] 06-02-2023 10:56-0500 Diastolic blood pressure 84 mm[Hg] Yeyo ROWE [facility] 06-02-2023 10:56-0500 Heart rate 68 /min Yeyo ROWE [facility] 06-02-2023 10:56-0500 Systolic blood pressure 124 mm[Hg] Yeyo ROWE [facility] 04-06-2023 13:15-0400 Body height 180.34 cm Jenaro Lynch Other [employer] Other 04-06-2023 13:15-0400 Body mass index (BMI) [Ratio] 29.43 kg/m2 Jenaro Lynch Other [employer] Other 04-06-2023 13:15-0400 Body weight 95.71 kg Jenaro Lynch Other [employer] Other 04-06-2023 13:15-0400 Diastolic blood pressure 70 mm[Hg] Jenaro Lynch Other [employer] Other 04-06-2023 13:15-0400 Respiratory rate 18 /min Jenaro Lynch Other [employer] Other 04-06-2023 13:15-0400 SaO2% (BldA) [Mass fraction] 97 % Jenaro Lynch Other [employer] Other 04-06-2023 13:15-0400 Systolic blood pressure 100 mm[Hg] Jenaro Lynch Other [employer] Other 03-15-2023 08:30-0400 Body height 180.34 cm Jenaro Lynch Other [employer] Other 03-15-2023 08:30-0400 Body mass index (BMI) [Ratio] 29.01 kg/m2 Jenaro Jettjoe Other [employer] Other 03-15-2023 08:30-0400 Body weight 94.35 kg Jenaro Lynch Other [employer] Other 03-15-2023 08:30-0400 Diastolic blood pressure 62 mm[Hg] Jenaro Lynch Other [employer] Other 03-15-2023 08:30-0400 Respiratory rate 16 /min Jenaro Lynch Other [employer] Other 03-15-2023 08:30-0400 SaO2% (BldA) [Mass fraction] 97 % Jenaro Lynch Other [employer] Other 03-15-2023 08:30-0400 Systolic blood pressure 88 mm[Hg] Jenaro Lynch Other [employer] Other 02-15-2023 10:04-0400 Body height 182.88 cm Jenaro Lynch Work Phone: [facility] [employer] 250 DO Work Phone: 02-15-2023 10:04-0400 Body mass index (BMI) [Ratio] 28.62 kg/m2 Jenaro Lynch Work Phone: [facility] 250 DO Work Phone: 02-15-2023 10:04-0400 Body surface area Derived from formula 2.18 m2 Jenaro Lynch Work [facility] 250 DO Work Phone: 02-15-2023 10:04-0400 Body weight 95.71 kg Jenaro Lynch Work Phone: [facility] 250 DO Work Phone: 02-15-2023 10:04-0400 Diastolic blood pressure 70 mm[Hg] Jenaro Lynch Work Phone: [facility] 250 DO Work Phone: 02-15-2023 10:04-0400 Heart rate 76 /min Jenaro Lynch Work Phone: [facility] 250 DO Work Phone: 02-15-2023 10:04-0400 Systolic blood pressure 102 mm[Hg] Jenaro Lynch Work Phone: [facility] 250 DO Work Phone: 01-30-2023 10:23-0400 Blood Pressure Location Yeyo ROWE [facility] 01-30-2023 10:23-0400 Diastolic blood pressure 74 mm[Hg] Yeyo ROWE [facility] 01-30-2023 10:23-0400 Heart rate 68 /min Yeyo ROWE [facility] 01-30-2023 10:23-0400 Respiratory rate 16 /min Yeyo ROWE [facility] 01-30-2023 10:23-0400 Systolic blood pressure 130 mm[Hg] Yeyo ROWE [facility] 01-11-2023 15:08-0400 Body height 180.34 cm Jenaro Lynch Work Phone: [facility] 600 DO Work Phone: 01-11-2023 15:08-0400 Body mass index (BMI) [Ratio] 30.13 kg/m2 Jenaro Mari Lynch Work Phone: [facility] [employer] 600 DO Work Phone: 01-11-2023 15:08-0400 Body surface area Derived from formula 2.18 m2 Jenaro Lynch Work Phone: [facility] [address] 600 DO Work Phone: 01-11-2023 15:08-0400 Body weight 97.98 kg Jenaro Fraustojoe Work Phone: [facility] [address] 600 DO Work Phone: 01-11-2023 15:08-0400 Diastolic blood pressure 86 mm[Hg] Jenaro Fraustojoe Work Phone: [facility] [employer] 600 DO Work Phone: 01-11-2023 15:08-0400 Heart rate 74 /min Jenaro Fraustojoe Work Phone: [facility] [employer] 600 DO Work Phone: 01-11-2023 15:08-0400 Systolic blood pressure 122 mm[Hg] Jenaro Lynch Work Phone: [facility] [employer] 600 DO Work Phone: 12-01-2022 12:45-0400 Body height 180.34 cm Jenaro Lynch Other [facility] [employer] Other 12-01-2022 12:45-0400 Body mass index (BMI) [Ratio] 29.73 kg/m2 Jenaro Lynch Other [facility] [employer] Other 12-01-2022 12:45-0400 Body weight 96.71 kg Jenaro Lynch Other [facility] [employer] Other 12-01-2022 12:45-0400 Diastolic blood pressure 70 mm[Hg] Jenaro Lynch Other [employer] Other 12-01-2022 12:45-0400 Respiratory rate 18 /min Jenaro Lynch Other [employer] Other 12-01-2022 12:45-0400 SaO2% (BldA) [Mass fraction] 94 % Jenaro Lynch Other [employer] Other 12-01-2022 12:45-0400 Systolic blood pressure 122 mm[Hg] Jenaro Lynch Other [employer] Other 11-23-2022 11:38-0400 Blood Pressure Location Yeyo [employer] [facility] 11-23-2022 11:38-0400 Diastolic blood pressure 85 mm[Hg] [employer] [facility] 11-23-2022 11:38-0400 Heart rate 76 /min [employer] [facility] 11-23-2022 11:38-0400 Systolic blood pressure 130 mm[Hg] Yeyo ROWE [facility] 07-04-2022 10:30-0500 Body height 180.34 cm Jenaro Lynch Other [employer] Other 07-04-2022 10:30-0500 Body mass index (BMI) [Ratio] 29.43 kg/m2 Jenaro Lynch Other [employer] Other 07-04-2022 10:30-0500 Body weight 95.71 kg Jenaro Lynch Other [employer] Other 07-04-2022 10:30-0500 Diastolic blood pressure 86 mm[Hg] Jenaro Lynch Other [employer] Other 07-04-2022 10:30-0500 Respiratory rate 16 /min Jenaro Lynch Other [employer] Other 07-04-2022 10:30-0500 Systolic blood pressure 146 mm[Hg] Jenaro Lynch Other [employer] Other 02-15-2022 13:45-0400 Body height 180.34 cm Jenaro Lynch Other [employer] Other 02-15-2022 13:45-0400 Body mass index (BMI) [Ratio] 30.12 kg/m2 Jenaro Lynch Other [employer] Other 02-15-2022 13:45-0400 Body weight 97.98 kg Jenaro Lnych Other [employer] Other 02-15-2022 13:45-0400 Diastolic blood pressure 62 mm[Hg] Jenaro Lynch Other [employer] Other 02-15-2022 13:45-0400 Respiratory rate 16 /min Jenaro Lynch Other [employer] Other 02-15-2022 13:45-0400 SaO2% (BldA) [Mass fraction] 96 % Jenaro Fraustojoe Other [employer] Other 02-15-2022 13:45-0400 Systolic blood pressure 100 mm[Hg] Jenaro Lynch Other [facility] [employer] Other 10-26-2021 10:01-0400 Body height 180.34 cm Jenaro Lynch Work Phone: [facility] 250 DO Work Phone: 10-26-2021 10:01-0400 Body mass index (BMI) [Ratio] 29.99 kg/m2 Jenaro Lynch Work Phone: [facility] 250 DO Work Phone: 10-26-2021 10:01-0400 Body surface area Derived from formula 2.17 m2 Jenaro Lynch Work Phone: [facility] 250 DO Work Phone: 10-26-2021 10:01-0400 Body weight 97.52 kg Jenaro Lynch Work Phone: [facility] 250 DO Work Phone: 10-26-2021 10:01-0400 Diastolic blood pressure 70 mm[Hg] Jenaro Lynch Work Phone: [facility] 250 DO Work Phone: 10-26-2021 10:01-0400 Heart rate 68 /min Jenaro Lynch Work Phone: [facility] 250 DO Work Phone: 10-26-2021 10:01-0400 Systolic blood pressure 104 mm[Hg] Jenaro Lynch Work Phone: [facility] 250 DO Work Phone: 10-19-2021 12:20-0400 Body height 180.34 cm Amina Fagan Other [employer] [facility] [employer] Other 10-19-2021 12:20-0400 Body mass index (BMI) [Ratio] 30.65 kg/m2 Amina Fagan Other [employer] Other 10-19-2021 12:20-0400 Body temperature 96.8 [degF] Amina Kinseys Other [employer] Other 10-19-2021 12:20-0400 Body weight 99.7 kg Amina Fagan Other [employer] Other 10-19-2021 12:20-0400 Diastolic blood pressure 71 mm[Hg] Amina Kinseys Other [employer] Other 10-19-2021 12:20-0400 Respiratory rate 18 /min Amina Kinseys Other [employer] Other 10-19-2021 12:20-0400 SaO2% (BldA) [Mass fraction] 98 % Amina Fagan Other [employer] Other 10-19-2021 12:20-0400 Systolic blood pressure 111 mm[Hg] Amina Kinseys Other [employer] Other 07-27-2021 14:00-0500 Body height 180.34 cm Jenaro Lynch Other [employer] Other 07-27-2021 14:00-0500 Body mass index (BMI) [Ratio] 30.4 kg/m2 Jenaro Lynch Other [employer] Other 07-27-2021 14:00-0500 Body weight 98.88 kg Jenaro Lynch Other [employer] Other 07-27-2021 14:00-0500 Diastolic blood pressure 76 mm[Hg] Jenaro Lynch Other [employer] Other 07-27-2021 14:00-0500 Respiratory rate 18 /min Jenaro Lynch Other [employer] Other 07-27-2021 14:00-0500 SaO2% (BldA) [Mass fraction] 98 % Jenarogorge Lynch Other [employer] Other 07-27-2021 14:00-0500 Systolic blood pressure 112 mm[Hg] Jenarogorge Lynch Other [employer] Other Encounters Encounter Date Encounter Type Care Provider Facility Start: 02-12-2024 ambulatory Yeyo Ley ty:[facility] Start: 11-23-2023 End: 11-23-[facility] Start: 11-15-2023 End: 11-15-2023 ambulatory [facility] [facility] Start: 11-14-2023 End: 11-14-2023 Evaluation and management of inpatient [facility] Start: 11-07-2023 End: 11-14-2023 Evaluation and management of inpatient [facility] Start: 11-07-2023 End: 11-14-2023 Evaluation and management of inpatient [facility] Start: 10-24-2023 End: 10-24-2023 ambulatory [facility] Start: 10-24-2023 End: 10-24-2023 Encounter for preprocedural cardiovascular examination [facility] Start: 10-24-2023 End: 10-24-2023 Office outpatient visit 25 minutes Raulito Inman MD Work Phone: [facility] Comment on above: History of PTCA; Hyperlipidemia, unspecified hyperlipidemia type; Encounter for pre-operative cardiovascular clearance; Former smoker Start: 10-24-2023 End: 10-24-2023 Patient encounter status Raulito Inman MD Work Phone: [facility] Work Phone: Start: 10-23-2023 End: 10-23-2023 ambulatory Padmini Montes Facility:[facility] Start: 10-23-2023 End: 10-23-2023 Patient encounter procedure Padmini oMntes [facility] Start: 10-19-2023 End: 10-20-2023 ambulatory Padmini Montes Facility:[facility] Start: 10-19-2023 ambulatory Padmini Montes Facili ty:[facility] Start: 10-19-2023 End: 10-19-2023 Patient encounter procedure Padmini Montes [facility] Start: 10-18-2023 End: 10-18-2023 ambulatory PADMINI MONTES [facility] Start: 10-06-2023 Non-patient / Non-visit DO Phillip Lynch Work Phone: [facility] Work Phone: Start: 10-05-2023 End: 10-05-2023 ambulatory Paula Elias Facility:[facility] Start: 10-05-2023 End: 10-05-2023 ambulatory DO Jenaro Lynch Work Phone: [facility] Work Phone: Start: 10-05-2023 End: 10-05-2023 Departed Referred DO Jenaro Lynch Work Phone: [facility] Start: 10-05-2023 Non-patient / Non-visit DO Phillip an Kuns Work Phone: [facility] Work Phone: Start: 10-04-2023 Non-patient / Non-visit DO Phillip an Kuns Work Phone: [facility] Work Phone: Start: 10-03-2023 Non-patient / Non-visit DO Phillip an Kuns Work Phone: [facility] Work Phone: Start: 10-02-2023 End: 10-02-2023 ambulatory Paula Hooker [facility] Facility:[facility] Start: 10-02-2023 End: 10-02-2023 ambulatory DO Jenaro Kuns Work Phone: [facility] Work Phone: Start: 10-02-2023 End: 10-02-2023 Departed Referred DO Jenaro Kuns Work Phone: [facility] Start: 10-02-2023 Non-patient / Non-visit DO Phillip an Kuns Work Phone: [facility] Work Phone: Start: 10-01-2023 Non-patient / Non-visit DO Phillip an Kuns Work Phone: [facility] Work Phone: Start: 09-30-2023 Non-patient / Non-visit DO Phillip an Kuns Work Phone: [facility] Work Phone: Start: 09-27-2023 Non-patient / Non-visit DO Phillip an Kuns Work Phone: [facility] Work Phone: Start: 09-21-2023 End: 09-21-2023 ambulatory Jenaro Kuns Facility:[facility] Start: 09-21-2023 End: 09-21-2023 ambulatory DO Jenaro Kuns Work Phone: [facility] Work Phone: Start: 09-21-2023 End: 09-21-2023 Departed Referred DO Jenaro Kuns Work Phone: [facility] Start: 09-21-2023 Non-patient / Non-visit DO Phillip an Kuns Work Phone: [facility] Work Phone: Start: 09-18-2023 Non-patient / Non-visit DO Phillip an Kuns Work Phone: [facility] Work Phone: Start: 09-08-2023 End: 09-08-2023 ambulatory Yeyo ROWE Facility:[facility] Start: 09-08-2023 End: 09-08-2023 Patient encounter procedure Yeyo ROWE [facility] Start: 08-10-2023 Non-patient / Non-visit DO Phillip an Kuns Work Phone: [facility] Work Phone: Start: 08-08-2023 Non-patient / Non-visit DO Phillip an Kuns Work Phone: [facility] Work Phone: Start: 08-07-2023 Non-patient / Non-visit DO Phillip an Kuns Work Phone: [facility] Work Phone: Start: 08-06-2023 Non-patient / Non-visit DO Phillip an Kuns Work Phone: [facility] Work Phone: Start: 08-05-2023 Non-patient / Non-visit DO Phillip an Jetts Work Phone: [facility] Work Phone: Start: 08-04-2023 Non-patient / Non-visit DO Phillip an Kuns Work Phone: [facility] Work Phone: Start: 08-03-2023 Non-patient / Non-visit DO Phillip an Kuns Work Phone: [facility] Work Phone: Start: 07-31-2023 ambulatory Jenaro Lynch Facility:[facility] Start: 07-31-2023 Registered Recurring DO Jenaro Lynch Work Phone: [facility]Infusion Therapy - O/P Work Phone: Start: 07-26-2023 Non-patient / Non-visit DO Phillip gorge Fraustos Work Phone: [facility] Work Phone: Start: 07-12-2023 End: 07-12-2023 Emergency department patient visit Jenaro Lynch Facility:[facility] Start: 07-12-2023 End: 07-12-2023 Emergency department patient visit DO Jenarogorge Fraustojoe Work Phone: [facility]Emer[facility] Work Phone: Start: 07-07-2023 End: 07-07-2023 ambulatory Jenaro Lynch Other [facility] [employer] Other Start: 07-07-2023 Telephone encounter Jenaro Lynch [facility] [place] Start: 07-03-2023 End: 07-03-2023 ambulatory Yeyo ROWE Facility: [facility] Start: 06-26-2023 End: 06-26-2023 ambulatory Jenaro Lynch Other [employer] Other Start: 06-26-2023 Telephone encounter Jenaro Lynch [facility] Start: 06-02-2023 End: 06-02-2023 ambulatory Yeyo ROWE Facility:[facility] Start: 06-02-2023 End: 06-02-2023 Patient encounter procedure Yeyo ROWE [facility] [place] Start: 05-16-2023 End: 05-16-2023 ambulatory Jenaro Lynch Other [employer] Other Start: 05-16-2023 Telephone encounter Jenaro Lynch [facility] Start: 05-03-2023 End: 05-03-2023 ambulatory Yeyo ROWE Facility: [facility] Start: 05-03-2023 End: 05-03-2023 Patient encounter procedure Yeyo ROEW [facility] Start: 04-28-2023 End: 04-28-2023 ambulatory Jenaro Lynch Other [employer] Other Start: 04-28-2023 Telephone encounter Jenaro Lynch [facility] Start: 04-18-2023 End: 04-18-2023 ambulatory Yeyo ROWE Facility:[facility] Start: 04-18-2023 End: 04-18-2023 Patient encounter procedure Yeyo ROWE [facility] Start: 04-17-2023 ambulatory Yeyo ROWE Facili ty:[facility] [place] Start: 04-13-2023 End: 04-13-2023 ambulatory Yeyo ROWE Facility:CD:[id number] Start: 04-11-2023 End: 04-11-2023 ambulatory Jenaro Lynch Other [employer] Other Start: 04-11-2023 Telephone encounter Jenaro Lynch [facility] [place] Start: 04-06-2023 End: 04-06-2023 ambulatory Jenaro Lynch Other [employer] Other Start: 04-06-2023 Encounter for other preprocedural examination [facility]aro [facility] Start: 04-06-2023 Office outpatient vi sit 25 minutes Jenaro Lynch [facility] Start: 03-28-2023 End: 03-28-2023 ambulatory Jenaro Lynch Other [employer] Other Start: 03-28-2023 Telephone encounter Jenaro Lynch [facility] Start: 03-20-2023 ambulatory Yeyo ROWE Facili ty:[facility] [place] Start: 03-15-2023 End: 03-15-2023 ambulatory Yeyo ROWE [facility] [employer] Other Start: 03-15-2023 Office outpatient vi sit 25 minutes Jenaro Lynch [facility] Start: 03-10-2023 End: 03-10-2023 ambulatory Jenarogorge Lynch Other [employer] Other Start: 03-10-2023 Telephone encounter Jenarogorge Lynch [facility] Start: 02-15-2023 Office outpatient vi sit 15 minutes Jenaro Lynch Work Phone: [facility] [address] DO Work Phone: Start: 02-15-2023 ambulatory Dolores Feldman Facility:[id number] Start: 02-14-2023 End: 02-14-2023 ambulatory Yeyo ROWE Facility:[facility] Start: 02-14-2023 End: 02-14-2023 Patient encounter procedure Yeyo ROWE [facility] Start: 02-08-2023 End: 02-08-2023 ambulatory Yeyo ROWE Facility:[facility] Start: 02-08-2023 End: 02-08-2023 Patient encounter procedure Yeyo ROWE [facility] Start: 01-30-2023 End: 01-30-2023 ambulatory Yeyo ROWE Facility:[facility] Start: 01-30-2023 End: 01-30-2023 Patient encounter procedure Yeyo ROWE [facility] Start: 01-25-[address] Jenaro Lynch Facility:[id number] Start: 01-17-2023 End: 01-17-2023 ambulatory Jenaro Lynch Other [employer] Other Start: 01-17-2023 Telephone encounter Jenaro Lynch [facility] Start: 01-11-2023 Office outpatient vi sit 25 minutes Jenaro Lynch Work Phone: [place] [address] DO Work Phone: Start: 01-11-2023 ambulatory Dolores Feldman Facility:[id number] Start: 12-28-2022 End: 12-28-2022 ambulatory Yeyo ROWE Facility:[facility] Start: 12-28-2022 End: 12-28-2022 Patient encounter procedure Yeyo ROWE [facility] Start: 12-21-2022 ambulatory Yeyo ROWE Facili ty:[facility] [place] Start: 12-01-2022 End: 12-01-2022 ambulatory Jenaro Lynch Other [employer] Other Start: 12-01-2022 Office outpatient vi sit 25 minutes Jenaro Lynch [facility] [place] Start: 11-30-2022 ambulatory Yeyo ROWE Facility : [facility] Start: 11-23-2022 End: 11-23-2022 Patient encounter procedure Yeyo ROWE [facility] Start: 10-07-2022 End: 10-07-2022 ambulatory Jenaro Lynch Other [employer] Other Start: 10-07-2022 Telephone encounter Jenaro Lynch [facility] [place] Start: 09-27-2022 End: 09-27-2022 ambulatory DO Jenaro Lynch Work Phone: [facility] Work Phone: Start: 09-27-2022 End: 09-27-2022 Patient encounter procedure DO Jenaro Lynch Work Phone: [facility] [place] Work Phone: Start: 09-21-2022 End: 09-21-2022 ambulatory Jenaro Lynch Other [employer] Other Start: 09-21-2022 Telephone encounter Jenaro Lynch [facility] [place] Start: 09-14-2022 End: 09-14-2022 ambulatory Jenaro Lynch Other [employer] Other Start: 09-14-2022 Telephone encounter Jenaro Lynch [facility] [place] Start: 09-02-2022 End: 09-02-2022 Patient encounter procedure DO Jenaro Lynch Work Phone: [facility]-MRI [facility] [place] Work Phone: Start: 08-25-2022 End: 08-25-2022 ambulatory Tona Mapus Other [employer] Other Start: 08-25-2022 Telephone encounter Tondra Mapus [facility] Start: 08-22-2022 End: 08-22-2022 ambulatory Jenaro Lynch Other [employer] Other Start: 08-22-2022 Telephone encounter Jenaro Lynch [facility] [place] Start: 08-05-2022 End: 08-05-2022 ambulatory Jenaro Lynch Other [employer] Other Start: 08-05-2022 Telephone encounter Jenaro Lynch [facility] [place] Start: 08-04-2022 End: 08-04-2022 ambulatory Jenaro Lynch Other [employer] Other Start: 08-04-2022 Telephone encounter Jenaro Lynch [facility] [place] Start: 07-28-2022 End: 07-28-2022 ambulatory Jenaro Lynch Other [employer] Other Start: 07-28-2022 Telephone encounter Jenaro Lynch [facility] Start: 07-25-2022 End: 07-25-2022 ambulatory Jenaro Lynch Other [employer] Other Start: 07-25-2022 Nursing evaluation o f patient and report Jenaro Lynch [facility] [place] Start: 07-19-2022 End: 07-19-2022 ambulatory Jenaro Lynch Other [employer] Other Start: 07-19-2022 Telephone encounter Jenaro Lynch [facility] [place] Start: 07-15-2022 End: 07-15-2022 ambulatory Jenaro Lynch Other [employer] Other Start: 07-15-2022 Telephone encounter Jenaro Lynch [facility] [place] Start: 07-13-2022 End: 07-13-2022 ambulatory Jenaro Lynch Other [employer] Other Start: 07-13-2022 Nursing evaluation o f patient and report Jenaro Lynch [facility] [place] Start: 07-12-[address] [facility] Start: 07-05-2022 End: 07-05-2022 ambulatory Jenaro Lynch Other [employer] Other Start: 07-05-2022 Telephone encounter Jenaro Lynch [facility] [place] Start: 07-05-2022 Rx Renewal Jenaro Lynch Work Phone: [facility] [address] DO Work Phone: Start: 07-04-2022 End: 07-04-2022 ambulatory Jenaro Lynch Other [employer] Other Start: 07-04-2022 Office outpatient vi sit 25 minutes Jenaro Lynch [facility] [place] Start: 06-30-2022 End: 06-30-2022 ambulatory Jenaro Lynch Other [employer] Other Start: 06-30-2022 Telephone encounter Jenaro Lynch [facility] [place] Start: 05-25-2022 End: 05-25-2022 ambulatory Jenaro Lynch Other [employer] Other Start: 05-25-2022 Telephone encounter Jenaro Lynch [facility] [place] Start: 04-25-2022 End: 04-25-2022 ambulatory Jenaro Lynch Other [employer] Other Start: 04-25-2022 Telephone encounter Jenaro Lynch [facility] [place] Start: 04-19-2022 End: 04-19-2022 ambulatory Jenaro Lynch Other [employer] Other Start: 04-19-2022 Telephone encounter Jenarogorge Fraustojoe [facility] [place] Start: 03-22-2022 End: 03-22-2022 ambulatory Jenaro Fraustojoe Other [employer] Other Start: 03-22-2022 Telephone encounter Jenaro Lynch [facility] [place] Start: 03-01-2022 End: 03-01-2022 ambulatory Jenaro Fraustojoe Other [employer] Other Start: 03-01-2022 Telephone encounter Jenarogorge Fraustojoe [facility] [place] Start: 02-18-2022 End: 02-18-2022 ambulatory Jenaro Jettjoe Other [employer] Other Start: 02-18-2022 Telephone encounter Jenarogorge Fraustojoe [facility] [place] Start: 02-15-2022 End: 02-15-2022 ambulatory Verona Moet Other [employer] Other Start: 02-15-2022 Office outpatient vi sit 25 minutes Jenaro Lynch [facility] [place] Start: 02-15-2022 Telephone encounter Verona Whaley [facility] Start: 01-21-2022 End: 01-21-2022 ambulatory Jenaro Lynch Other [employer] Other Start: 01-21-2022 Telephone encounter Jenarogorge Fraustojoe [facility] [place] Start: 01-19-2022 End: 01-19-2022 ambulatory Jenaro Lynch Other [employer] Other Start: 01-19-2022 Telephone encounter Jenaro Lynch [facility] [place] Start: 01-13-2022 End: 01-13-2022 ambulatory Jenaro Lynch Other [employer] Other Start: 01-13-2022 Telephone encounter Jenaro Lynch [facility] [place] Start: 12-23-2021 End: 12-23-2021 ambulatory Jenarogorge Lynch Other [employer] Other Start: 12-23-2021 Telephone encounter Jenaro Lynch [facility] [place] Start: 11-24-2021 End: 11-24-2021 ambulatory Jenarogorge Lynch Other [employer] Other Start: 11-24-2021 Telephone encounter Jenaro Lynch [facility] [place] Start: 11-03-2021 Rx Renewal Jenaro Lynch Work Phone: [facility] [employer] 250 DO Work Phone: Start: 10-26-2021 Office outpatient vi sit 25 minutes Jenaro Lynch Work Phone: [facility] [employer] 250 DO Work Phone: Start: 10-25-2021 End: 10-25-2021 ambulatory Jenaro Lynch Other [employer] Other Start: 10-25-2021 Telephone encounter Jenaro Lynch [facility] [place] Start: 10-19-2021 End: 10-19-2021 ambulatory Aziz Bakdariuss Other [employer] Other Start: 10-19-2021 Office outpatient vi sit 25 minutes Aziz Bakhous [facility] Start: 10-18-2021 End: 10-18-2021 ambulatory Aziz Bakhous Other [employer] Other Start: 10-18-2021 Telephone encounter Azjuan Bakhous [facility] Start: 10-12-2021 End: 10-13-2021 ambulatory DUARTE HENRY . Facility: Start: 10-08-2021 End: 10-08-2021 ambulatory Jenaro Lynch Other [employer] Other Start: 10-08-2021 Telephone encounter Jenaro Lynch [facility] [place] Start: 09-22-2021 End: 09-22-2021 ambulatory Jenaro Lynch Other [employer] Other Start: 09-22-2021 Telephone encounter Jenaro Lynch [facility] [place] Start: 09-21-2021 End: 09-21-2021 ambulatory Jenaro Lynch Other [employer] Other Start: 09-21-2021 Telephone encounter Jenaro Lynch [facility] [place] Start: 08-09-2021 End: 08-09-2021 ambulatory Jenaro Lynch Other [employer] Other Start: 08-09-2021 Telephone encounter Jenaro Lynch [facility] [place] Start: 08-02-2021 End: 08-02-2021 ambulatory Jenaro Lynch Other [employer] Other Start: 08-02-2021 Telephone encounter Jenaro Lynch [facility] [place] Start: 07-27-2021 End: 07-27-2021 ambulatory Jenaro Lynch Other [employer] Other Start: 07-27-2021 Office outpatient vi sit 25 minutes Jenaro Lynch [facility] [place] Start: 06-23-2021 End: 06-23-2021 ambulatory Jenaro Lynch Other [employer] Other Start: 06-23-2021 Telephone encounter Jenaro Lynch [facility] Start: 06-22-2021 Rx Renewal Jenaro Lynch Work Phone: [facility] 250 DO Work Phone: Start: 05-03-2021 End: 05-03-2021 ambulatory Jenaro Lynch Other [facility] [employer] Other Start: 05-03-2021 Telephone encounter Jenaro Lynch [facility] [place] Procedures Date Procedure Procedure Detail Performing Clinician [...] Work Phone: Start: 04-13-2023 Transurethral prostatectomy Yeyo SOLEDAD Start: 03-27-2023 History of percutane ous transluminal coronary angioplasty History of PTCA Raulito Inman MD Work Phone: Start: 02-14-2023 Transurethral cystoscopy Yeyo ROWE Start: 09-02-2022 MRI of head DO Jenaro shi Work Phone: Start: 06-05-2006 Total colonoscopy Jenaro Fraustojoe Work Phone: Appendectomy Jenaro Lynch Work Phone: Appendectomy Yeyo ROWE Bilateral Carpal Timothy uli Surgery Yeyo ROWE Bilateral Eye Surgery 1 Jose Antonio ROWE Comment on above: bilateral cataracts with iol implants Cardiac catheterization Jose Angel Lynch Work Phone: cardiac stents Yeyo DELA CRUZ S Cataract extraction and insertion of intraocular lens Yeyo ROWE Cataract surgery Jenaro diaz Work Phone: Colonoscopy Yeyo ROWE Decompression of med bryon nerve Jenaro Lynch Work Phone: History of percutane ous transluminal coronary angioplasty History of PTCA Jenaro Lynch Work Phone: History of percutane ous transluminal coronary angioplasty History of PTCA Raulito Inman MD Work Phone: Procedure on back Jenrao ramirez Work Phone: Comment on above: nerve ablation; Procedure on back Yeyo MIRTA MAHERJoe Scrotum and testicle operation Jenaro Lynch Work Phone: Plan of Treatment Date Care Activity Detail Author Start: 10-21-2024 End: 10-21-2024 Patient encounter procedure 10/21/2024 8:00 AM EDT Office Visit [facility] [address] [id number] Dolores Feldman, BEHAVIOR MANAGEMENT SPECIALIST-CONSOLIDATION ACCOUNTANT [address] [facility] [address] [place] [address] [facility] Start: 02-04-2024 Influenza vaccination Influenza Vaccine (Season Ended) [facility] Start: 11-15-2023 FUV, Provider: Raulito Inman, Status: Pen, Time: 2:40 PM FUV, Provider: Raulito Inman, Status: Pen, Time: 2:40 PM [facility] [facility] [address] DO Work Phone: Start: 10-02-2023 Acid Fast Culture Acid Fast Culture [facility] Start: 09-30-2023 Blood Culture 1 Blood Culture 1 [facility] Start: 09-30-2023 Blood Culture 2 Blood Culture 2 [facility] Start: 09-30-2023 Wound Culture Wound Culture [facility] Start: 09-21-2023 Abscess Culture Abscess Culture [facility] Start: 08-10-2023 Acid Fast Culture Acid Fast Culture [facility] Start: 08-05-2023 Wound Culture Wound Culture [facility] Start: 07-12-2023 Duplex scan of lower limb veins US venous duplex LE BI [facility] Start: 07-12-2023 US Lower extremity vein - bilateral [facility] Start: 07-12-2023 Duplex scan veins of upper limb US venous duplex UE LT [facility] Start: 07-12-2023 US Upper extremity vein - left [facility] Start: 02-15-2023 FUV, Provider: Dolores Velazquez, Status: Pen, Time: 10:00 AM FUV, Provider: Dolores Velazquez, Status: Pen, Time: 10:00 AM [facility] Work Phone: Start: 02-03-2023 COVID-19 Vaccine ( season) COVID-19 Vaccine ( season) [facility] Start: 01-25-2023 STRESS NUC, Provider: [facility]UCLE[facility] [id number], Status: Pen, Time: 8:30 AM STRESS NUC, Provider: [facility] NUCLE[facility] [id number], Status: Pen, Time: 8:30 AM [facility] DO Work Phone: Start: 07-12-2022 FUV, Provider: Raulito Inman, Status: Pen, Time: 9:20 AM FUV, Provider: Raulito Inman, Status: Pen, Time: 9:20 AM [facility] [place] [facility] DO Work Phone: Start: 10-26-2021 FUV, Provider: Raulito Inman, Status: Pen, Time: 9:30 AM FUV, Provider: Raulito Inman, Status: Pen, Time: 9:30 AM [facility] DO Work Phone: Start: 03-05-2019 Pneumococcal Vaccine: Pediatrics (0 to 5 Years) and At-Risk Patients (6 to 64 Years) (2 of 2 - PCV) Pneumococcal Vaccine: Pediatrics (0 to 5 Years) and At-Risk Patients (6 to 64 Years) (2 of 2 - PCV) [facility] Start: 2015 Zoster Vaccines (1 of 2) Zoster Vaccines (1 of 2) [facility] Start: 1987 DTaP/Tdap/Td Vaccines (1 - Tdap) DTaP/Tdap/Td Vaccines (1 - Tdap) [facility] Start: 1984 Hepatitis B Vaccines (1 of 3 - 19+ 3-dose series) Hepatitis B Vaccines (1 of 3 - 19+ 3-dose series) [facility] Start: 1984 Urine screening for protein Diabetes: Urine Protein Screening [facility] Start: 1983 Hepatitis C screening Hepatitis C Screening [facility] Start: 1975 Diabetic foot examination Diabetes: Foot Exam [facility] Start: 1975 Glaucoma screening Diabetes: Retinopathy Screening [facility] Start: 1966 MMR Vaccines (1 of 1 - Standard series) MMR Vaccines (1 of 1 - Standard series) [facility] Start: 1965 Hemoglobin A1c measurement Diabetes: Hemoglobin A1C [facility] Start: 1965 HIV screening HIV Screening [facility] Start: 1965 Lipid panel Lipid Panel [facility] Start: 1965 Screening for malignant neoplasm of colon [facility] Start: 1965 Yearly Adult Physical Yearly Adult Physical [facility] Patient Education Dependent Edema (DC) [facility] Work Phone: Patient referral [facility] Work Phone: Immunizations Immunization Date Immunization Notes Care Provider Sachin pettit 11-13-2020 Pfizer-BioNTech COVI D-19 Vacc 30 MCG/0.3ML Intramuscular Suspension Jenaro Lynch Work Phone: [facility] 10-23-2020 Pfizer-BioNTech COVI D-19 Vacc 30 MCG/0.3ML Intramuscular Suspension Jenaro Lynch Work Phone: [facility] 01-14-2019 influenza, seasonal, injectable Jenaro Lynch Other [facility] 01-14-2019 influenza virus vacc ine, unspecified formulation Yeyo ROWE [facility] 04-02-2018 influenza virus vacc ine, unspecified formulation Yeyo ROWE [facility] 04-02-2018 influenza, injectabl e, quadrivalent, preservative free DO Jenaro Lynch Work Phone: [facility] 03-05-2018 influenza virus vacc ine, unspecified formulation Jenaro Lynch Work Phone: [facility] 250 DO Work Phone: 03-05-2018 pneumococcal polysaccharide vaccine, 23 valent Jenaro P Syed Work Phone: [facility] 250 DO Work Phone: 03-07-2016 influenza virus vacc ine, unspecified formulation Yeyo SOLEDAD [facility] 03-07-2016 influenza, injectabl e, quadrivalent, preservative free Jenaro P Jetts Work Phone: [facility] 600 DO Work Phone: 02-22-2016 pneumococcal polysaccharide vaccine, 23 valent Jenaro P Kuns Work Phone: [facility] Payers Date Payer Category Payer Unknown 2023 Self-pay [id number] 2022 Private Health Insurance [id number] 2022 Private Health Insurance [id number] 2022 Private Health Insurance [id number] 2022 Medicaid [id number] 1965 Unknown [id number] 2.16.84 0.1.108956.3.579.2.593 1965 Unknown [id number] 2.16.8 40.1.861049.3.579.2.1068 1965 Unknown [id number] 2.16. 840.1.932301.3.579.2.356 1965 Unknown [id number] 2.16. 840.1.224979.3.579.2.356 1965 Unknown [id number] 2.16. 840.1.634267.3.579.2.356 1965 Unknown [id number] 2.16.8 40.1.120961.3.579.2.1244 1965 Unknown [id number] 2.16.8 40.1.476514.3.579.2.727 1965 Unknown [id number] 2.16.8 40.1.565326.3.579.2.1286 1965 Unknown [id number] 2.16.8 40.1.858977.3.579.2.1286 1965 Unknown [id number] 2.16.8 40.1.401883.3.579.2.1286 1965 Unknown [id number] 2.16.8 40.1.977060.3.579.2.1286 1965 Unknown [id number] 2.16.8 40.1.234265.3.579.2.1285 1965 Unknown [id number] 2.16.8 40.1.584384.3.579.2.1285 1965 Unknown [id number] 2.16.8 40.1.039229.3.579.2.1285 1965 Unknown [id number] 2.16.8 40.1.777878.3.579.2.1285 1965 Unknown [id number] 2.16.8 40.1.992368.3.579.2. 1965 Unknown [id number] 2.16.8 40.1.661243.3.579.2. 1965 Unknown [id number] 2.16.8 40.1.531933.3.579.2. 1965 Unknown [id number] 2.16.8 40.1.389845.3.579.2. 1965 Unknown [id number] 2.16.8 40.1.146029.3.579.2. 1965 Unknown [id number] 2.16.8 40.1.295562.3.579.2. 1965 Unknown [id number] 2.16.8 40.1.439743.3.579.2. 1965 Unknown [id number] 2.16.8 40.1.767193.3.579.2.72 1965 Unknown [id number] 2.16.8 40.1.438483.3.579.2. 1965 Unknown [id number] 2.16.8 40.1.233218.3.579.2. 1965 Unknown [id number] 2.16.8 40.1.574462.3.579.2. 1965 Unknown [id number] 2.16.8 40.1.397722.3.579.2.727 1965 Unknown [id number] 2.16.8 40.1.813277.3.579.2.727 1965 Unknown [id number] 2.16.8 40.1.803540.3.579.2.727 1965 Unknown [id number] 2.16.8 40.1.961432.3.579.2.727 1965 Unknown [id number] 2.16.8 40.1.247969.3.579.2.727 1959 Unknown [id number] 2.1 6.840.1.447041.19 Unknown [id number] 2.16.8 40.1.753277.3.579.2.531 Unknown [id number] 2.16.8 40.1.302960.3.579.2.531 Unknown [id number] 2.16.8 40.1.897760.3.579.2.531 Unknown [id number] 2.16.8 40.1.421327.3.579.2.531 Unknown [id number] 2.16.8 40.1.248995.3.579.2.531 Social History Date Type Detail Facility Start: 08-08-2023 Caffeine use Caffeine use [employer] Other Comment on above: 2 cups coffee, 4-6 c ups tea daily, occaional soda; qauit 07/2020; Start: 08-08-2023 Sex Assigned At F [facility] Start: 07-14-2020 End: 07-12-2023 Tobacco smoking status NHIS Smoker (finding) [facility] Start: 1965 Sex Assigned At Male F [facility] Start: 11-23-2022 End: 10-23-2023 Tobacco smoking status Heavy tobacco smoker (finding) [facility] Tobacco smoking status Never [facility] Start: 10-24-2023 Tobacco smoking stat us NHIS Ex-smoker [facility] End: 06-05-2020 History of tobacco use Cigarette Smoker [facility] Work Phone: Start: 10-24-2023 Tobacco use and exposure Smokeless tobacco non-user [facility] Work Phone: Start: 10-24-2023 Alcoholic beverage intake Lifetime non-drinker (finding) [facility] Work Phone: Start: 1965 Sex assigned at Not on file U [facility] Work Phone: Start: 10-14-2023 End: 10-24-2023 Exposure to SARS-CoV-2 (event) Not sure [facility] Medical Equipment Procedure Code Equipment Code [...] bilia ry stentMultiple peripheral artery stent, bare-metal ([id number] [facility] Start: 07-14-2020 Functional Status Date Assessment Result Facility 10-23-2023 Functional Status No [facility] 06-02-2023 Functional Status N/A [facility] 02-14-2023 Functional Status N/A [facility] 01-30-2023 Functional Status N/A [facility] 11-23-2022 Functional Status N/A [facility] Clinical Notes 06-23-2021 to 10-24-2023 Raulito Inman MD - 10/24/2023 10:20 AM EDTPatient Instructions Note Date & Type Note Facility 10-24-2023 Note Sinus tachycardia Rightward axis Poor anterior R wave progression QTc 481 ms [facility] 10-24-2023 History of Present illness Narrative [...] Scribe Attestation By signing my name below, IRosemary LPN, Scribe attest that this documentation has been prepared [...] discussion and plan. documented in this encounter [facility] Work Phone: 10-24-2023 Instructions Rosemary Benavides LPN [...] a cardiac standpoint documented in this encounter [facility] Work Phone: 07-13-2023 Hospital Discharge instructions Follow Up Care 07/13/2023 12:04:02 With:SOLEDAD HERRERA, Yeyo Blum, URL Address: [address] [place] [address]- When: Unknown [facility] 06-26-2023 Evaluation note Encounter Date Diagnosis Assessment Notes Jun, Hyperlipidemia (ICD-10 - E78.5) [facility] Other [id number] Hospital Discharge instructions Patient Education 06/02/2023 11:57:43 [...] urethra. Follow these instructions at home: Take vicb-nxb-zuyvdel and prescription medicines only as told by [...] provider. Document Revised: 12/08/2021 Document Reviewed: 12/08/2021 [employer] Patient Education 2022 [employer]. Follow Up Care 06/01/2023 14:05:36 With:SOLEDAD HERRERA, Yeyo Blum, URL Address: [address] [place] [address] [place] [address]- When: Unknown [facility] [place] 12-12-2023 Evaluation note* Encounter Date Diagnosis Assessment Notes Treatment Notes Treatment Clinical Notes May, 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) [facility] Other 11-24-2023 Evaluation note* Encounter Date Diagnosis Assessment Notes Treatment Notes Treatment Clinical Notes Apr, Diabetic nephropathy (ICD-10 - E11.21) [facility] Other 11-07-2023 Evaluation note* Encounter Date Diagnosis Assessment Notes Treatment Notes Treatment Clinical Notes Apr, Left arm pain (ICD-10 - M79.602) [facility] Other 11-02-2023 Evaluation note* Encounter Date Diagnosis [...] and to have his surgery as scheduled. 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 He was found to have developed [...] to continue to montior this at home. [facility] Other 10-09-2023 Note [id number] Hospital Discharge instructions Patient Education [...] including vitamins, herbs, eye drops, creams, and rdbe-jyx-jewqdya medicines. Any problems you or family members [...] provider tells you to take them. Taking plet-wch-kowxgbb medicines, vitamins, herbs, and supplements. Surgery safety [...] provider. Document Revised: 02/15/2022 Document Reviewed: 02/15/2022 [employer] Patient Education 2022 [employer]. [facility]09-12-2023 Note [id number]:127[facility] 02-14-2023 [id number]:127[facility]08-28-2023 Hospital Discharge instructions Patient Education 01/30/2023 [...] including vitamins, herbs, eye drops, creams, and covp-nlc-vqhzfkt medicines. ?Whether you are or may be [...] provider. Document Revised: 02/02/2022 Document Reviewed: 12/25/2020 [employer] Patient Education 2022 [employer]. 01/30/2023 11:22:30 Cystoscopy Cystoscopy Cystoscopy is a [...] including vitamins, herbs, eye drops, creams, and tkaq-koi-zvdtovm medicines. Any problems you or family members [...] provider tells you to take them. Taking mtqt-kmy-ksopwiv medicines, vitamins, herbs, and supplements. Tests You [...] Follow these instructions at home: Medicines Take cxps-lqc-xrcawaf and prescription medicines only as told by [...] provider. Document Revised: 02/02/2022 Document Reviewed: 01/01/2021 [employer] Patient Education 2022 [employer]. Follow Up Care 11/23/2022 13:02:56 With:SOLEDAD HERRERA, Yeyo Blum, URL Address: [facility] [address], [place] [phone] When: Unknown Comments:sched cysto/uros [facility] 08-15-2023 Evaluation note* Encounter Date Diagnosis Assessment Notes Treatment Notes Treatment Clinical Notes Jan, Diabetic nephropathy (ICD-10 - E11.21) [facility] Other 06-29-2023 Evaluation note* Encounter Date Diagnosis [...] patient to follow with Cardiology as scheduled. [facility] Other 06-21-2023 Hospital Discharge instructions Patient Education [...] provider. Document Revised: 08/11/2021 Document Reviewed: 05/07/2021 [facility] Patient [facility] 2021 [employer]. [facility] 09/14/2022 14:23:26 With:SOLEDAD HERRERA, Yeyo Blum, URL Address: [facility] [address] , [place] [address]- When: Unknown [facility] 05-05-2023 Evaluation note* Encounter Date Diagnosis Assessment Notes Treatment Notes Treatment Clinical Notes October, Erectile dysfunction, unspecified erectile dysfunction type (ICD-10 - N52.9) [facility] Other 04-19-2023 Evaluation note* Encounter Date Diagnosis Assessment Notes Treatment Notes Treatment Clinical Notes Sep, 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) [facility] Other 04-12-2023 Evaluation note* Encounter Date Diagnosis Assessment Notes Treatment Notes Treatment Clinical Notes Sep, 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) Sep, 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) [facility] Other 03-20-2023 Evaluation note* Encounter Date Diagnosis Assessment Notes Treatment Notes Treatment Clinical Notes Aug, Diabetic nephropathy (ICD-10 - E11.21) [facility] Other 03-03-2023 Evaluation note* Encounter Date Diagnosis Assessment Notes Treatment Notes Treatment Clinical Notes Aug, Pain in right leg (ICD-10 - M79.604) [facility] Other 03-02-2023 Evaluation note* Encounter Date Diagnosis Assessment Notes Treatment Notes Treatment Clinical Notes Aug, Pain in right leg (ICD-10 - M79.604) [facility] Other 02-20-2023 Evaluation note* Encounter Date Diagnosis Assessment Notes Treatment Notes Treatment Clinical Notes Jul, Intractable episodic headache, unspecified headache type (ICD-10 - R51.9) [facility] Other 02-14-2023 Evaluation note* Encounter Date Diagnosis Assessment Notes Treatment Notes Treatment Clinical Notes Jul, Acute intractable headache, unspecified headache type (ICD-10 - R51.9) [facility] Other 02-08-2023 Evaluation note* Encounter Date Diagnosis Assessment Notes Treatment Notes Treatment Clinical Notes Jul, Headache (ICD-10 - R51.9) [facility] Other 01-30-2023 Evaluation note* Encounter Date Diagnosis [...] medication and we will continue to monitor. [facility] Other 12-21-2022 Evaluation note* Encounter Date Diagnosis Assessment Notes Treatment Notes Treatment Clinical Notes May, Diabetic nephropathy (ICD-10 - E11.21) [facility] Other 11-21-2022 Evaluation note* Encounter Date Diagnosis Assessment Notes Treatment Notes Treatment Clinical Notes Apr, Diabetic nephropathy (ICD-10 - E11.21) [facility] Other 11-15-2022 Evaluation note* Encounter Date Diagnosis Assessment Notes Treatment Notes Treatment Clinical Notes Apr, Pain in right leg (ICD-10 - M79.604) [facility] Other 10-18-2022 Evaluation note* Encounter Date Diagnosis Assessment Notes Treatment Notes Treatment Clinical Notes Mar, Diabetic nephropathy (ICD-10 - E11.21) [facility] Other 09-13-2022 Evaluation note* Encounter Date Diagnosis Assessment Notes Treatment Notes Treatment Clinical Notes Feb, Hypertensive chronic kidney disease with stage 1 through stage 4 chronic kidney disease, or unspecified chronic kidney disease (ICD-10 - I12.9) [facility] Other 09-13-2022 Evaluation note* Encounter Date Diagnosis [...] is to continue to follow with the silver plater as scheduled. Feb, Pain in right leg [...] Noted upon review of blood work results. [facility] Other 08-19-2022 Evaluation note* Encounter Date Diagnosis Assessment Notes Treatment Notes Treatment Clinical Notes Jan, Diabetic nephropathy (ICD-10 - E11.21) [facility] Other 08-17-2022 Evaluation note* Encounter Date Diagnosis Assessment Notes Treatment Notes Treatment Clinical Notes Jan, Diabetic nephropathy (ICD-10 - E11.21) [facility] Other 07-21-2022 Evaluation note* Encounter Date Diagnosis Assessment Notes Treatment Notes Treatment Clinical Notes Dec, Diabetic nephropathy (ICD-10 - E11.21) [facility] Other 06-22-2022 Evaluation note* Encounter Date Diagnosis Assessment Notes Treatment Notes Treatment Clinical Notes Nov, Diabetic nephropathy (ICD-10 - E11.21) [facility] Other 05-23-2022 Evaluation note* Encounter Date Diagnosis Assessment Notes Treatment Notes Treatment Clinical Notes October, Diabetic nephropathy (ICD-10 - E11.21) [facility] Other 05-17-2022 Evaluation note* Encounter Date Diagnosis [...] He did quit smoking since July 2020 [facility] Other 05-16-2022 Evaluation note* Encounter Date Diagnosis Assessment Notes Treatment Notes Treatment Clinical Notes October, Hypertensive chronic kidney disease with stage 1 through stage 4 chronic kidney disease, or unspecified chronic kidney disease (ICD-10 - I12.9) October, Stage 3 chronic kidney disease, unspecified whether stage 3a or 3b CKD (ICD-10 - N18.30) [facility] Other 05-06-2022 Evaluation note* Encounter Date Diagnosis Assessment Notes Treatment Notes Treatment Clinical Notes October, Pain in right leg (ICD-10 - M79.604) October, Pain in left leg (ICD-10 - M79.605) [facility] Other 04-20-2022 Evaluation note* Encounter Date Diagnosis Assessment Notes Treatment Notes Treatment Clinical Notes Sep, Diabetic nephropathy (ICD-10 - E11.21) [facility] Other 04-19-2022 Evaluation note* Encounter Date Diagnosis Assessment Notes Treatment Notes Treatment Clinical Notes Sep, Anxiety (ICD-10 - F41.9) Sep, Hypertensive chronic kidney disease with stage 1 through stage 4 chronic kidney disease, or unspecified chronic kidney disease (ICD-10 - I12.9) [facility] Other 03-07-2022 Evaluation note* Encounter Date Diagnosis Assessment Notes Treatment Notes Treatment Clinical Notes Aug, Anxiety (ICD-10 - F41.9) [facility] Other 02-22-2022 Evaluation note* Encounter Date Diagnosis [...] 12 pound weight loss from last visit. [facility] Other [id number] Evaluation note* Encounter Date Diagnosis Assessment Notes Treatment Notes Treatment Clinical Notes Jun, Diabetic nephropathy (ICD-10 - E11.21) [facility] Other Evaluation + Plan note Future Appointments Appointment Date:12/21/2022 11:00:00 AM Scheduled Provider: Location:[facility] Appointment Type:URO Nurse Visit Appointment Date:01/30/2023 10:30:00 AM Scheduled Provider:Yeyo ROWE MD Location:[facility] Appointment Type:URO Office Visit [facility] Evaluation + Plan note Future Appointments Appointment Date:01/30/2023 10:15:00 AM Scheduled Provider:Yeyo ROWE MD Location:[facility] Appointment Type:URO Office Visit [facility] Evaluation + Plan note Future Appointments Appointment Date:02/01/2023 10:00:00 AM Scheduled Provider: Location:[facility] Appointment Type:Urology CALL PAT FT Appointment Date:02/08/2023 09:00:00 AM Scheduled Provider: Location:[facility] Appointment Type:Urology FT Appointment Date:02/14/2023 09:15:00 AM Scheduled Provider: Location:[facility] Appointment Type:Urology FT [facility] evaluation + Plan note Future Appointments Appointment Date:02/14/2023 09:15:00 AM Scheduled Provider: Location:[facility] Appointments Appointment Date:03/20/2023 08:45:00 AM Scheduled Provider: Location:[facility] Appointment Type:URO Nurse Visit Appointment Date:04/05/2023 08:00:00 AM Scheduled Provider:Yeyo ROWE MD Location:[facility] App[facility] Future Appointments Appointment Date:05/03/2023 08:45:00 AM Scheduled Provider:Yeyo ROWE MD Location:[facility] Appointment Type:URO Office Visit [facility] Evaluation + Plan note Future Appointments Appointment Date:07/03/2023 10:15:00 AM Scheduled Provider:Yeyo ROWE MD Location:[facility] Appointment Type:URO Office Visit [facility] evaluation + Plan note Future Appointments Appointment Date:10/23/2023 09:30:00 AM Scheduled Provider:Padmini Montes MD [facility] noteNo InformationNort Dittit Other Evaluation noteNo assessment information available [facility] Work Phone: Evaluation note* Diagnosis History of PTCA Postsurgical percutaneous transluminal coronary angioplasty status Hyperlipidemia, unspecified hyperlipidemia type Encounter for pre-operative cardiovascular clearance Former smoker Personal history of tobacco use, presenting hazards to health documented in this encounter [facility] Work Phone: History general Narrative - Reported* Type Description Date Medical History TYPE II DIABETES Medical History CHRONIC BACK PAIN OLD INJURY, Medical History HTN Medical History FIBROMYALGIA Medical History 2013-stress test Medical History mild heart attack Medical [...] Heart stent placed by Dr. Bowie at [facility] 07/26/15 Surgical History Left knee arthroscopy 11/2015 Surgical History carpal tunnel release, right an d left 08/2016 Surgical History hydrocele repair 08/2016 Surgical History cardiac cath [facility] 04/02/18 Surgical History Lt LE iliac DSA, angioplasty & stenting 09/27/2018 Surgical History Left Angiogram with one stent - Dr. Boss 07/2020 Hospitalization History Deep Depression, Anxiety; [facility] 11-11-10 Hospitalization History [facility] hypoxemia and hyper capnic respirtory failure 11/11/16 Hospitalization History chest pain [facility] 04/02/18 [facility] Other History of Present illness NarrativeReturns in [...] impact on blood pressure and [facility] [employer] DO Work Phone: History of Present illness [...] medication regimen. He denies medication side effects. [facility] Work Phone: History of Present [...] medication regimen. He denies medication side effects. [facility] [employer] 250 DO Work Phone: Hospital course Narrative No data available for this section [facility] Hospital Discharge instructions No data available for this section [facility] Charisse Progress note No data available for this section [facility] Chief Complaint SOLOMON FELDMAN is being seen [...] Procedures ECG 12 Lead Raulito Inman MD [address] [place] [address], [address] [address] Referral ID Status Reason Start Date Expiration Date V isits Requested Visits Authorized [id number] Authorized 10/24/2023 10/23/2024 1 1 Specialty Diagnoses / Procedures Referred By Brett t Referred To Contact Cardiology Diagnoses History of PTCA Procedures Follow Up In Cardiology Raulito Inman MD [address] [place] [address], [address] [address] Referral ID Status Reason Start Date Expiration Date V isits Requested Visits Authorized [id number] Authorized 10/24/2023 10/23/2024 1 1 Reason CANCELLED consult and treat; previous patient of Dr. Sharpe last seen in 2020; persisting intractable headaches Diagnosis 1 Acute intractable he adache, unspecified headache type (R51.9) Referral Organization [facility] [place] Referring Provider First Name Jenaro Referring Provider Last Name Syed Referring Provider Specialty Family Prac dale Referred Organization [facility] Referred Provider Lyssa Sharpe Referred Address [address] [place], [place],[address] Referred Provider Specialty Neurology Referral Priority Routine General Notes [facility] 023 10:19:08 AM >Received today. [facility] request us to fill out their form and attach to Referral and send it to them and they will call patient to schedule. Referral was sent P2P and fax insurance card since it would not let me attach to referral [facility] 07/28/2022 10:23:53 AM >Spoke with Marilynn at [facility] and patient has been scheduled and cancelled the appt for 07/26/22 [facility] 07/28/2022 10:27:39 AM >Telephone encounter was sent Reason 03/31/22 @ 2:45pm consult and treat Diagnosis 1 Type 2 diabetes bobby itus with circulatory disorder (E11.59) [facility] [place] Referring Provider First Name Jenaro Referring Provider Last Name Syed Referring Provider Specialty Family Jono gracee Referred Organization [facility] Referred Provider Doris Barnes Referred Address [address],[facility] F,[place], [place],[address] Referred Provider Specialty Nurse Jono calderon Referral Priority Routine Referral Appointment Date 2022-03-31 General Notes [facility] 022 02:28:10 PM >Received today and sent [...] Comments Follow-up 9 months POC lower a kristal Promm[employer] CYNTHIA Specialty Diagnoses / Procedures Referred By Brett mandujano Referred To Contact Diagnoses Encounter for pre-operative cardiovascular clearance Procedures ECG 12 Lead Raulito Inman [facility] [address], [address] [address] Referral ID Status Reason Start Date Expiration Date V isits Requested Visits Authorized [id number] Authorized 10/24/2023 10/23/2024 1 1 Care Teams (unrecognized sec tion and content) Team Status: Active Member Role Status Elda Lynch DO Primary Care Provider Active Team Status: Inactive Member Role Status Elda Lynch DO Primary Care Provider Active Shana Mclaughlin PA-C Attending Provider Active Team Status: Inactive Member Role Status Elda Lynch DO Primary Care Provider Active Jenaro Lynch DO [facility] Attending Provider Active Team Status: Inactive Member [...] Role Status Elda Lynch DO Primary Care Provide r, Attending Provider Active Start: August 03, 2023 Team Status: Active Member Role Status Elda Lynch DO Primary Care Provide r, Attending Provider Active Start: August 04, 2023 Team Status: Active Member Role Status Elda Lynch DO Primary Care Provide r, Attending Provider Active Start: August 05, 2023 Team Status: Active Member Role Status Elda Lynch DO Primary Care Provide r, Attending [...] Role Status Elda Lynch DO Primary Care Provide r, Attending [...] Role Status Elda Lynch DO Primary Care Provide r, Attending [...] 2023 Team Status: Inactive Member Role Status Elda Elias DPM MS Attending Provider Active Start: October 02, 2023 End: October 02, 2023 Team Status: Active Member Role Status Elda Lynch DO Primary Care Provider Active Sta rt: October 03, 2023 Truman Bryant MD Attending Provider Active Sta rt: October 03, 2023 Team Status: Active Member Role Status Elda Bryant MD Attending Provider Active Sta rt: [...] Provider Active Sta rt: October 06, 2023 [employer] 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 Relationship Specialty Start Date End Date Jenaro [...] DATE CREATED AUTHOR AUTHOR'S ORGANIZ ATION 01/27/2023 [facility] DATE CREATED AUTHOR AUTHOR'S ORGANIZ ATION 02/16/2023 [facility] DATE CREATED AUTHOR AUTHOR'S ORGANIZ ATION 02/16/2023 [facility] DATE CREATED AUTHOR AUTHOR'S ORGANIZ ATION 10/12/2023 [facility] DATE CREATED AUTHOR AUTHOR'S ORGANIZ ATION 10/22/2023 [facility] DATE CREATED AUTHOR AUTHOR'S ORGANIZ ATION 10/26/2023 [facility] DATE CREATED AUTHOR AUTHOR'S ORGANIZ ATION 10/26/[address] [facility] DATE CREATED AUTHOR AUTHOR'S ORGANIZ ATION 11/16/2023 [facility] DATE CREATED AUTHOR AUTHOR'S ORGANIZ ATION 11/25/2023 [facility] DATE CREATED AUTHOR AUTHOR'S ORGANIZ ATION 11/26/[address] [facility] FOR RECORDS PERTAINING TO PATIENTS WHO [...] BE BASED ON THE PRIMARY CLINICAL RECORDS. [facility]. provides no warranty or guarantee of the accuracy or completeness of information in this document.
--- NOTE | 2023-11-26 14:55 | ED_ITS ---
HPI - Extremity Problem General Chief complaint: Extremity Problem, Nontraumatic Stated complaint: R HIP PAIN/SWELLING Time Seen by Provider: 11/26/23 14:55 Source: patient and family Mode of arrival: ambulance History of Present Illness HPI Narrative: This patient is here with his family complaining of pain in his right hip area head he has had a number of surgical procedures done to this right lower leg including vascular procedures done in [facility]. Also had foot amputation done by Dr. Víctor Rossa here at this institution. He is not known to have any previous hip disorders or problems. He is still nonweightbearing becau se of his recent foot surgery. He has not had any change in X activity levels. He only uses a scooter. He has on blood thinners because he has a clot in the back of his right knee area. He has not had any pain in his back or back surgery recently. He is not running a fever. There is no new neurological symptoms just severe pain in his right hip when he tries to move it. He has had infections in his lower leg and the bones prior to his previous surgeries. He does fever at home and he is afebrile here. Believe he is on any antibiotics currently but that will have to be a the nursing last. He had previously been on Levaquin but that was prescribed in early October. Related Data Home Medications ?Medication ?Instructions ?Recorded ?Confirmed empagliflozin 10 mg tablet 10 mg PO DAILY 03/03/23 11/26/23 (Jardiance) metformin 1,000 mg tablet 1,000 mg PO DAILY 03/03/23 11/26/23 nitroglycerin 0.4 mg sublingual 0.4 mg sublingual Q5M PRN chest 03/03/23 11/26/23 tablet pain omeprazole 40 mg capsule,delayed 40 mg PO DAILY 03/03/23 11/26/23 release pregabalin 200 mg capsule 200 mg PO TID 03/03/23 11/26/23 fremanezumab-vfrm 225 mg/1.5 mL 225 mg subcut .QMonth 08/03/23 11/26/23 subcutaneous auto-injector (Ajovy) isosorbide mononitrate 30 mg 30 mg PO DAILY 08/03/23 11/26/23 tablet,extended release 24 hr insulin lispro 100 unit/mL 1 sliding scale dose subcut 11/26/23 11/26/23 subcutaneous pen USEASDIRECTD metoprolol tartrate 25 mg tablet 12.5 mg PO BID 11/26/23 11/26/23 Previous Rx's ?Medication ?Instructions ?Recorded arginine 7 gram-glutam 7 1 packet PO BID #60 ea 10/06/23 gram-CaHMB 1.5 [id number]-min oral pwd pkt (Tenzin (with collagen)) oxycodone 10 mg tablet 10 mg PO Q4H PRN pain #180 tabs 10/06/23 Allergies Allergy/AdvReac Type Severity Reaction Status Date / Time Penicillins Allergy Severe Swelling Verified 11/15/23 06:06 of Lip/Tongue/Throat bee venom protein (honey bee) Allergy Swelling Verified 11/15/23 06:06 of Lip/Tongue/Throat latex Allergy Rash Verified 11/15/23 06:06 [facility] Medical History (Updated 11/26/23 @ 17:04 by Hernan Martinez MD) Ulcer of right foot with necrosis of bone ?L97.514 - Non-pressure chronic ulcer of other part of right foot with necrosis of bone (ICD-10) Acute osteomyelitis of right foot ?M86.171 - Other acute osteomyelitis, right ankle and foot (ICD-10) Hypocalcemia ?E83.51 - Hypocalcemia (ICD-10) Hypomagnesemia ?E83.42 - Hypomagnesemia (ICD-10) Sepsis ?A41.9 - Sepsis, unspecified organism (ICD-10) Wound of foot ?S91.309A - Unspecified open wound, unspecified foot, initial encounter (ICD- 10) Abscess of right foot ?L02.611 - Cutaneous abscess of right foot (ICD-10) Chronic ulcer of right foot ?L97.519 - Non-pressure chronic ulcer of other part of right foot with unspecified severity (ICD-10) Anticoagulated ?Z79.01 - ocean transportation intermediary (current) use of anticoagulants (ICD-10) Diabetic infection of right foot ?E11.628 - Type 2 diabetes mellitus with other skin complications (ICD-10) ?L08.9 - Local infection of the skin and subcutaneous tissue, unspecified (ICD-10) Puncture wound of right foot ?S91.331A - Puncture wound without foreign body, right foot, initial encounter (ICD-10) Cellulitis of foot, right ?L03.115 - Cellulitis of right lower limb (ICD-10) ROEL (acute kidney injury) ?N17.9 - Acute kidney failure, unspecified (ICD-10) Sepsis ?A41.9 - Sepsis, unspecified organism (ICD-10) CHF (congestive heart failure) ?I50.9 - Heart failure, unspecified (ICD-10) Migraine headache ?G43.909 - Migraine, unspecified, not intractable, without status migrainosus (ICD-10) Tobacco abuse ?Z72.0 - Tobacco use (ICD-10) DM2 (diabetes mellitus, type 2) ?E11.9 - Type 2 diabetes mellitus without complications (ICD-10) Carpal tunnel syndrome ?G56.00 - Carpal tunnel syndrome, unspecified upper limb (ICD-10) Back pain ?M54.9 - Dorsalgia, unspecified (ICD-10) Arthritis ?M19.90 - Unspecified osteoarthritis, unspecified site (ICD-10) Restless leg ?G25.81 - Restless legs syndrome (ICD-10) GERD (gastroesophageal reflux disease) ?K21.9 - Gastro-esophageal reflux disease without esophagitis (ICD-10) High cholesterol ?E78.00 - Pure hypercholesterolemia, unspecified (ICD-10) Myocardial infarction ?I21.9 - Acute myocardial infarction, unspecified (ICD-10) Coronary artery disease ?I25.10 - Atherosclerotic heart disease of [place] coronary artery without angina pectoris (ICD-10) BPH with obstruction/lower urinary tract symptoms ?N40.1 - Benign prostatic hyperplasia with lower urinary tract symptoms (ICD- 10) ?N13.8 - Other obstructive and reflux uropathy (ICD-10) Dementia ?F03.90 - Unspecified dementia, unspecified severity, without behavioral disturbance, psychotic disturbance, mood disturbance, and anxiety (ICD-10) CKD stage 4 due to type 2 diabetes mellitus ?E11.22 - Type 2 diabetes mellitus with diabetic chronic kidney disease (ICD- 10) ?N18.4 - Chronic kidney disease, stage 4 (severe) (ICD-10) Hyperlipidemia ?E78.5 - Hyperlipidemia, unspecified (ICD-10) Polyp of prostate with urinary obstruction ?N40.1 - Benign prostatic hyperplasia with lower urinary tract symptoms (ICD- 10) ?N13.8 - Other obstructive and reflux uropathy (ICD-10) Femoral artery stenosis ?I70.209 - Unspecified atherosclerosis of [place] arteries of extremities, unspecified extremity (ICD-10) Glaucoma ?H40.9 - Unspecified glaucoma (ICD-10) Carpal tunnel syndrome, bilateral ?G56.03 - Carpal tunnel syndrome, bilateral upper limbs (ICD-10) Gout ?M10.9 - Gout, unspecified (ICD-10) COPD (chronic obstructive pulmonary disease) ?J44.9 - Chronic obstructive pulmonary disease, unspecified (ICD-10) Neuropathy ?G62.9 - Polyneuropathy, unspecified (ICD-10) Chronic kidney disease ?N18.9 - Chronic kidney disease, unspecified (ICD-10) Hypertension ?I10 - Essential (primary) hypertension (ICD-10) Weakness ?R53.1 - Weakness (ICD-10) Surgical History (Updated 09/15/23 @ 10:12 by Shana George NP) H/O foot surgery (08/10/23) ?Z98.890 - Other specified postprocedural states (ICD-10) S/P TURP (04/13/23) ?Z90.79 - Acquired absence of other genital organ(s) (ICD-10) H/O foot surgery (08/05/23) ?Z98.890 - Other specified postprocedural states (ICD-10) History of heart artery stent ?Z95.5 - Presence of coronary angioplasty implant and graft (ICD-10) History of spinal surgery ?Z98.890 - Other specified postprocedural states (ICD-10) History of colonoscopy ?Z98.890 - Other specified postprocedural states (ICD-10) History of carpal tunnel release ?Z98.890 - Other specified postprocedural states (ICD-10) History of cataract extraction ?Z98.49 - Cataract extraction status, unspecified eye (ICD-10) History of appendectomy ?Z90.49 - Acquired absence of other specified parts of digestive tract (ICD- 10) History of heart artery stent ?Z95.5 - Presence of coronary angioplasty implant and graft (ICD-10) Family History (Updated 03/03/23 @ 18:46 by Darling Sharma RN) Mother Family history of CHF (congestive heart failure) Family history of diabetes mellitus Family history of hypertension Grandfather Family history of CHF (congestive heart failure) Family history of diabetes mellitus Family history of hypertension Family history of myocardial infarction Grandmother Family history of hypertension Social History (Updated 08/10/23 @ 09:23 by Mariely Fox) Within the past year, how often did you have a drink containing alcohol: never Score interpretation: A score less than 4 is consistent with normal alcohol consumption. Smoking status: Current every day smoker What tobacco products do you use: cigarettes Cigarettes per day: 20 Years smoked: 42 Smoking pack-years: 42.00 Non-prescribed substance use: denies use Previous occupational history: DISABLED Highest level of school completed/degree received: don't know Gender Identity: male Exam Narrative Exam Narrative: This patient was lying on his left side complains of discomfort directly over the greater trochanter. Does not have any low back pain or spinal pain. He has had numerous surgical procedures but has chronic pain in his foot but it is really well-controlled since most recent surgical procedure. He has no discoloration of the leg. Perfusion to the distal extremity seems to be normal with no evidence of vascular ischemia. There is no new swelling of his lower extremity. Passive range of motion causes some discomfort in his hip. He does not have any pain in his pelvic or abdominal area. Rest examination is benign. Constitutional Vital Signs, click to edit/add: Last Vital Signs Temp 98.8 F 11/26/23 14:42 Pulse 72 11/26/23 14:42 Resp 18 11/26/23 14:42 BP 118/69 11/26/23 14:42 Pulse Ox 100 11/26/23 14:42 O2 Del Method Room Air 11/26/23 14:42 Course Vital Signs Vital signs: Vital Signs Temperature 98.8 F 11/26/23 14:42 Pulse Rate 72 11/26/23 14:42 Respiratory Rate 18 11/26/23 14:42 Blood Pressure 118/69 11/26/23 14:42 Pulse Oximetry 100 11/26/23 14:42 Oxygen Delivery Method Room Air 11/26/23 14:42 Temperature 98.8 F 11/26/23 14:42 Pulse Rate 72 11/26/23 14:42 Respiratory Rate 18 11/26/23 14:42 Blood Pressure 118/69 11/26/23 14:42 Pulse Oximetry 100 11/26/23 14:42 Oxygen Delivery Method Room Air 11/26/23 14:42 MDM - Extremity (Nontraumatic) MDM Narrative Medical decision making narrative: Patient presents with new onset right hip pain with normal physical findings to the remainder of the extremity. His white blood cell count is normal CRP is normal he does not have a fever. No skin lesions or infections near the area of the hip. No acute cellulitis that right lower extremity so I do not think were dealing with a septic hip port. We we will get him set up to see orthopedics tomorrow at 1130. He stays at the senior care where he still getting rehab. He is in agreement with these recommendations and as I said we will schedule appointment with orthopedics tomorrow Discharge Plan Discharge Stand Alone Forms: Portal Instructions Chief Complaint: Extremity Problem, Nontraumatic Clinical Impression: Acute pain of right hip Patient Disposition: Home, Self-Care Time of Disposition Decision: 17:03 Prescriptions / Home Meds: No Action albuterol sulfate [ProAir HFA] 90 mcg/actuation HFA aerosol inhaler 2 inh inhalation Q4H PRN (Reason: shortness of breath or wheezing) budesonide-formoterol [Symbicort] 160-4.5 mcg/actuation HFA aerosol inhaler 2 inh INHALATION Q12H ropinirole 1 mg tablet 1 mg PO TID sildenafil 100 mg tablet 100 mg PO Q24H PRN (Reason: sexual activity) Spiriva Respimat 2.5 mcg/actuation mist 2 inh INHALATION Q24H tizanidine 4 mg tablet 4 mg PO DAILY aspirin 81 mg tablet,delayed release (DR/EC) 81 mg PO DAILY atorvastatin 80 mg tablet 80 mg PO DAILY clopidogrel 75 mg tablet 75 mg PO DAILY Jardiance 10 mg tablet 10 mg PO DAILY glimepiride 2 mg tablet 2 mg PO BID metformin 1,000 mg tablet 1,000 mg PO BID nitroglycerin 0.4 mg tablet, sublingual 0.4 mg sublingual Q5M PRN (Reason: chest pain) omeprazole 40 mg capsule,delayed release(DR/EC) 40 mg PO DAILY pregabalin 200 mg capsule 200 mg PO TID Januvia 100 mg tablet 100 mg PO DAILY tamsulosin [Flomax] 0.4 mg capsule 0.4 mg PO BID amitriptyline 100 mg tablet 100 mg PO BEDTIME Trulicity 1.5 mg/0.5 mL pen injector 1.5 mg SUBCUT QWEEK Ajovy Autoinjector 225 mg/1.5 mL auto-injector 225 mg SUBCUT .QMonth isosorbide mononitrate 30 mg tablet extended release 24 hr 30 mg PO DAILY Nurtec ODT 75 mg tablet,disintegrating 75 mg PO DAILY fluconazole 100 mg Tablet 200 mg PO QD Qty: 20 0RF magnesium oxide 400 mg (241.3 mg magnesium) Tablet 400 mg PO TID Qty: 90 11RF ferrous sulfate 325 mg (65 mg iron) Tablet 325 mg PO BID Qty: 60 11RF insulin aspart U-100 [Novolog FlexPen U-100 Insulin] 100 unit/mL (3 mL) Insulin Pen 3 - 21 unit subcut ACHS Qty: 15 11RF pregabalin 100 mg Capsule 200 mg PO TID Qty: 180 2RF Hold Instructions: Order Change Pro-Stat Sugar Free 15 gram- 100 kcal/30 mL Liquid In Packet 1 ea PO BID Qty: 2880 12RF Tenzin (with collagen) 7-7-1.5 gram Powder In Packet 1 packet PO BID Qty: 60 11RF levofloxacin 750 mg tablet 750 mg PO DAILY Qty: 30 0RF oxycodone 10 mg tablet 10 mg PO Q4H PRN (Reason: pain) Qty: 180 0RF Print Language: Bhutanese Additional Instructions: Have your care facility transport you to the orthopedic clinic for Dr. Weber tomorrow continue your pain as reviewed Referrals: Jenaro Valadez DO [Primary Care Provider] - 1 week
--- NOTE | 2023-11-26 14:57 | XR_ITS ---
The [address] [address] Patient Name: MYRA FELIPE MRN: [id number] date: 1965 Sex: M Assigned Patient Location: ER Current Patient Location: ER Accession/Order Number: [id number] Exam Date: 11/26/2023 15:50 Report Date: 11/26/2023 16:39 At the request of: PATRICK CROOK Procedure: XR hip RT 2V w/ pelvis IMAGES REVIEWED: XR hip RT 2V w/ pelvis COMPARISON: 11/02/2023. CLINICAL INDICATION: Pain FINDINGS/IMPRESSION: 1. No evidence of acute osseous abnormality of the right hip/pelvis. 2. Mild degenerative change bilateral hips. 3. Bilateral iliac vascular stents. Electronically authenticated by: CALVIN WILLS Date: 11/26/2023 16:39
--- NOTE | 2023-11-26 14:57 | ECG_ITS ---
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
[2023-11-26] MEDS: HYDROMORPHONE HCL 1 MG/ML CARTRIDGE IV ×2 (15:21→17:13)
[2023-11-26] MEDS: 0.9 % SODIUM CHLORIDE 1,000 ML 999 ML IV (15:21)
[2023-11-26 15:33] LABS: Basophils Absolute Auto 0.1 10^3/uL (0.0-0.1); Basophils Percent Auto 1.1 % (0.2-2.0); Eosinophils Absolute Auto 0.3 10^3/uL (0.0-0.7); Eosinophils Percent Auto 3.5 % (0.9-7.0); Hematocrit 33.1 % (42.0-54.0); Hemoglobin 9.8 g/dL (14.0-18.0); Immature Granulocytes Abs Auto 0.04 10^3/uL (0.00-0.03); Immature Granulocytes Pct Auto 0.4 % (0.0-0.5); Lymphocytes Absolute Auto 2.1 10^3/uL (1.2-3.8); Lymphocytes Percent Auto 23.4 % (20.5-60.0); Mean Corpuscular HGB Conc 29.6 g/dL (29.9-35.2); Mean Corpuscular Hemoglobin 24.8 pg (25.9-34.0); Mean Corpuscular Volume 83.8 fL (80.0-94.0); Mean Platelet Volume 10.4 fL (9.5-13.5); Monocytes Absolute Auto 0.8 10^3/uL (0.3-0.8); Monocytes Percent Auto 8.5 % (1.7-12.0); Neutrophils Absolute Auto 5.7 10^3/uL (1.4-6.5); Neutrophils Percent Auto 63.1 % (43.0-75.0); Platelet Count 371 10^3/uL (150-450); Red Blood Count 3.95 10^6/uL (4.70-6.10); White Blood Count 9.1 10^3/uL (4.0-11.0)
[2023-11-26 15:48] LABS: Erythrocyte Sedimentation Rate 96 mm/hr (<=20)
[2023-11-26 15:59] LABS: Alanine Aminotransferase 16 U/L (16-63); Albumin Globulin Ratio 0.8; Albumin Level 3.2 g/dL (3.4-5.0); Alkaline Phosphatase 143 U/L (46-116); Anion Gap 16.5; Aspartate Amino Transferase 14 U/L (15-37); BUN Creatinine Ratio 15.1; Bilirubin Total 0.5 mg/dL (0.2-1.0); C Reactive Protein <0.50 mg/dL (<=0.50); Calcium 9.1 mg/dL (8.5-10.1); Carbon Dioxide 24.2 mmol/L (21.0-32.0); Chloride 101 mmol/L (98-107); Estimated GFR (African America 50 (>=60); Estimated GFR (Non-African Ame 41 (>=60); Globulin 4.2 g/dL; Glucose 132 mg/dL (74-106); Potassium 3.7 mmol/L (3.5-5.1); Sodium 138 mmol/L (136-145); Total Protein 7.4 g/dL (6.4-8.2)
[2023-11-26 16:03] LABS: Lactate/Lactic Acid 3.6 mmol/L (0.4-2.0)
== END 2023-11-26 17:43 | disposition home or self-care (01) ==
PROVIDERS: Emergency Provider Emergency Medicine Emergency Medical Services; PCP Family Medicine
DX: M25.551 Pain in right hip (principal); F17.210 Nicotine dependence, cigarettes, uncomplicated; Z89.431 Acquired absence of right foot
CPT/HCPCS: 36415; 73502; 80053; 83605; 85025; 85652; 86140; 87040; 93005; 96374; 96376; 99285; J1170

== ENCOUNTER 2023-11-28 09:13 | Outpatient (OUT) | payer OTHER, SELFPAY ==
--- OUTSIDE RECORDS SUMMARY | 2023-11-28 09:36 | XMS_ITS | CCD ---
Author Organization [facility] Inform ion [facility] Care Team Providers Care 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 Name Role Phone Jenaro Lynch Unavailable Unavailable Unavailable Jenaro Lynch Unavailable Norris Faganjuan Unavailable Judd Verona Unavailable Cameron Akin Unavailable DO Jenaro Lynch Primary Care Provider JERARDO Mclaughlin Attending Provider DO Jenaro Lynch Attending Provider ELAINE ., [...] Care Provider MD Nancy Wilson Emergency Provider [phone] DO Jenaro Lynch Primary Care Provider [phone] MD Nancy Wilson Emergency Provider JERARDO Mclaughlin Attending Provider [phone] JERARDO Mclaughlin Referring Provider [phone] Curt, LINDSEY Hooker Attending Provider [phone] Curt, Paula Hooker Attending Unavailable Highlbhavin, Paula Hooker Admitting Unavailable Highlbhavin, Paula Hooker Attending Unavailable Highlbhavin, Paula Hooker Admitting Unavailable KunJenaro diaz Primary Care Unavailable Shana Mclaughlin Referring Unavailable Arnoldo, Shana Attending Unavailable LowShana serrano Admitting Unavailable Kuns, Jenaro Primary Care Unavailable Wilson, Nancy Attending Unavailable Wilson, Nancy Admitting Unavailable Kuns, Jenaro Primary Care Unavailable Highlbhavin, Paula Hooker Attending Unavailable Highlbhavin, Paula Hooker Admitting Unavailable Kuns, DO Eason Primary Care Provider [phone] Jenaro Lynch DO Primary Care Provider [phone] RAULITO INMAN Attending Unavailable KUNSJENARO Primary Care [...] Eruption of skin (disorder) [facility] (20 sources) Penicillins; 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: [Penicillins] Allergy to drug (finding) 11-05-19 14 Anaphylactoid reaction (disorder) [facility] (20 sources) Acetaminophen / oxyCODONE Drug Allergy vomiting [facility] Other (20 sources) tamsulosin; 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: [TAMSULOSIN] Drug Allergy 07-14-19 21 hives [facility] (20 sources) PENICIILIN Propensity to adverse reactions SWELLING OF AIRWAY [facility] [employer] Other (8 sources) Acetaminophen; 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: [acetaminophen] Drug Allergy 07-14-19 21 Vomiting [facility] (9 sources) oxyCODONE; 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: [Oxycodone] Drug Allergy 02-08-20 17 Vomiting [facility] (1 source) Penicillins Drug allergy (disorder) 09-23-19 14 [facility] Rep[facility] (16 sources) Penicillin G; 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: [penicillin G benzathine] Drug Allergy [facility] (8 sources) Penicillin Drug Allergy anaphylaxis [facility] [employer] Other (1 source) Penicillins Drug allergy (disorder) 07-31-19 24 [facility] Repository (1 source) tamsulosin Drug Allergy 07-31-19 24 [facility] Repository (1 source) Latex Allergy to substance 03-27-20 23 Unknown [facility] (1 source) Penicillins Drug Allergy 03-27-20 23 Anaphylaxis [facility] Work Phone: (3 sources) Isosorbide; 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: [ISOSORBIDE [...] 1:00am July 14, 2020 12:39pm Start: 10-10-2014 [place] 325 mg-5 mg oral tablet 1 tab(s), [...] BID, # 60 cap(s), Refills(s) 11, Pharmacy: [facility]/pharmacy #[id number], 182, cm, 06/02/23 11:00:00 EST, Height/Length Dosing, 94, kg, 06/02/23 11:00:00 EST, Weight Dosing Start Date: 06/26/23 Status: Ordered Start: 02-14-2023 take 1 capsule by mo uth twice daily tamsulosin 0.4 mg Cap 0.4 mg = 1 cap(s), Oral, BID, # 60 cap(s), Refills(s) 3, Pharmacy: [facility]/pharmacy #[id number], 182, cm, 02/14/23 8:58:00 EDT, Height/Length Dosing, 94, kg, 01/30/23 10:24:00 EDT, Weight Dosing Start Date: 02/14/23 Status: Ordered take 1 capsule by [facility] once daily Tamsulosin HCl - 0.4 MG Oral Capsule TAKE 1 CAPSULE Daily Quantity: 0 Refills: 0 Ordered: 15-Feb-2023 DO [facility] (20 sources) Start: 01-27-2014 Start: 01-27-2014 TENS Unit as d irected Use as directed. Jan, Active Tiotropium Cruger (Spiriva With Handihaler) 18 mcg capsule, w/inhalation device (4 sources) Start: 07-12-2023 take 1 capsule by inhalation once daily Tiotropium Cruger (Spiriva With Handihaler) 18 mcg capsule, w/inhalation device Active 1 CAP INHALATION Daily July 12, 2023 1:00am puncture 1 cap using device; one dose = 2 inhalations Start: 07-12-2023 take 1 capsule by in halation once daily Tiotropium Cruger (Spiriva With Handihaler) 18 mcg capsule, w/inhalation [...] Ordered Start: 07-04-2022 take 1 tablet by [facility] every twelve hours tiZANidine HCl 4 MG 1 tablet as needed Orally Twice a day Jun, Active take 2 tablets by [facility] at bedtime tiZANidine HCl - [...] procedure, # 2 cap(s), Refills(s) 0, Pharmacy: [facility]/pharmacy #[id number], 182, cm, 01/30/23 10:24:00 [...] take 1 tablet by mouth once daily Olmesartan-[place] chlorothiazide (Benicar Hct) 40-12.5 mg Tablet Discontinued [...] [Coronary atherosclerosis of unspecified type of vessel, [place] or graft] Onset: 2 Resolved: 2 Chronic [...] limb due to atherosclerosis; 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: [Atherosclerosis of [place] arteries of extremities with gangrene, right leg] [...] sources) Long-term current use of insulin; 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: [FPC (current) use of insulin] Episodic Other and [...] Reference Range Facility Progress Note-Physicianon Progress Note-Physician [id number] Normal [facility] BASIC METABOLIC PANLon 11-13 Anion gap [Moles/Vol] 10 mmol/L Normal 5-15 [facility] Comment on above: Performed By: #### C KENDALL CANALES, , 2776-1 ####[facility] ([id number])[address], [place] [address] Calcium [Mass/Vol] 8.8 mg/dL Normal 8.5-10.5 [facility] Comment on above: Performed By: #### KENDALL AHUJA, , 2776-1 ####[facility] ([id number])[address], [address], [place] [address] Chloride [Moles/Vol] 99 mmol/L Normal 98-109 [facility] Comment on above: Performed By: #### Snehal CANALES BMP, , 2776-06 ####[facility] ([id number])[address], [address], [place] [address] CO2 [Moles/Vol] 26 mmol/L Normal 22-32 [facility] Comment on above: Performed By: #### C ALLY [facility], , 2776-06 ####[facility] ([id number])[address] [address], [place] [address] Creatinine [Mass/Vol] 1.61 mg/dL High 0.60-1.30 [facility] Comment on above: Result Comment: METH OD TRACEABLE TO IDMS STANDARD Performed By: #### C ALLY [facility], , 2776-06 ####[facility] ([id number])[address] [address], [place] [address] GFR/1.73 sq M.predicted among non-blacks MDRD (S/P/Bld) [Vol rate/Area] 49 mL/min/{1.73_m2} Low >59 [facility] Comment on above: Result Comment: Reported eGFR is based on the CKD-EPI 2020 equation that does not use a race coefficient. Performed By: #### C ALLY [facility], , 2776-06 ####[facility] ([id number])[address] [address], [place] [address] Glucose [Mass/Vol] 184 mg/dL High 65-99 [facility] Comment on above: Performed By: #### C ALLY [facility], , 2776-06 ####[facility] ([id number])[address] [address] [address] Potassium [Moles/Vol] 4.0 mmol/L Normal 3.5-5.0 [facility] Comment on above: Performed By: #### C ALLY, [facility], , 2776-06 ####[facility] ([id number])[address] [address], [place] [address] Sodium [Moles/Vol] 135 mmol/L Normal 134-146 [facility] Comment on above: Performed By: #### C ALLY, KENDALL, , 2776-06 ####[facility] ([id number])[address], [address], [place] [address] Urea nitrogen [Mass/Vol] 23 mg/dL Normal 5-23 [facility] Comment on above: Performed By: #### C ALLY, KENDALL, , 2776-06 ####[facility] ([id number])[address], [address], [place] [address] COMPLETE BLOOD COUNTon 11-13 Erythrocyte distribution width (RBC) [Ratio] 22.8 % High 11.5-15.0 [facility] Comment on above: Performed By: #### C ALLY, KENDALL, , 2776-06 ####[facility] ([id number])[address], [place] [address] Hematocrit (Bld) [Volume fraction] 25.1 % Low 39-49 [facility] Comment on above: Performed By: #### Snehal CANALES [facility], , 2776-06 ####[facility] ([id number])[address] [address], [place] [address] Hemoglobin (Bld) [Mass/Vol] 8.1 g/dL Low 13.0-17.0 [facility] Comment on above: Performed By: #### KENDALL AHUJA, , 2776-06 ####[facility] ([id number])[address], [place] [address] MCH (RBC) [Entitic mass] 25.1 pg Low 27-34 [facility] Comment on above: Performed By: #### C ALLY, BMP, , 2776-06 ####[facility] ([id number])[address], [address], [place] [address] MCHC (RBC) [Mass/Vol] 32.4 g/dL Normal 32-36 [facility] Comment on above: Performed By: #### C ALLY, BMP, , 2776-06 ####[facility] ([id number])[address] [address] [address] MCV (RBC) [Entitic vol] 77 fL Low 80-100 [facility] Comment on above: Performed By: #### C ALLY, [facility], , 2776-06 ####[facility] ([id number])[address], [address], [place] [address] Platelet mean volume (Bld) [Entitic vol] 8.8 fL Normal 7-12 [facility] Comment on above: Performed By: #### Snehal CANALES, [facility], , 2776-06 ####[facility] ([id number])[address] [address] [address] Platelets (Bld) [#/Vol] 232 10*3/uL Normal 150-450 [facility] Comment on above: Performed By: #### Snehal CANALES [facility], , 2776-06 ####[facility] ([id number])[address] [address] [address] RBC COUNT 3.25 X10E12/L Low 4.10-5.70 [facility] Comment on above: Performed By: #### Snehal CANALES [facility], , 2776-06 ####[facility] ([id number])[address] [address] [address] WBC (Bld) [#/Vol] 8.4 10*3/uL Normal 4.0-11.0 [facility] Comment on above: Performed By: #### Snehal CANALES [facility], , 2776-06 ####[facility] ([id number])[address] [address] [address] Glucose Glucometer (BldC) [M ass/Vol]on 11-14-2023 Glucose [Mass/Vol] 173 mg/dL High 65-99 [facility] Glucose [Mass/Vol] 279 mg/dL High 65-99 [facility] Glucose [Mass/Vol] 249 mg/dL High 65-99 [facility] MAGNESIUMon 11-14-2023 Magnesium [Mass/Vol] 2.1 mg/dL Normal 1.8-2.6 [facility] Comment on above: Performed By: #### 1 9123-9 ####[facility] ([id number])[address], [address], [place] [address] Magnesium [Mass/Vol] mg/dL Critically low 1.8-2.6 [facility] Comment on above: Performed By: #### 1 9123-9 ####[facility] ([id number])[address], [address], [place] [address] Magnesium [Mass/Vol] 1.7 mg/dL Low 1.8-2.6 [facility] Comment on above: Performed By: #### C KENDALL CANALES, , 2777-1 ####[facility] ([id number])[address], [address], [place] [address] PHOSPHORUSon 11-14-2023 Phosphate [Mass/Vol] 3.6 mg/dL Normal 2.4-4.9 [facility] Comment on above: Performed By: #### Snehal CANALES BMP, , 7-1 ####[facility] ([id number])[address], [address], [place] [address] BASIC METABOLIC PANLon 11-12 Anion gap [Moles/Vol] 10 mmol/L Normal 5-15 [facility] Comment on above: Performed By: #### Snehal CANALES, BMP, , 7-1 ####[facility] ([id number])[address], [address], [place] [address] Calcium [Mass/Vol] 8.9 mg/dL Normal 8.5-10.5 [facility] Comment on above: Performed By: #### C KENDALL CANALES, , 2776-06 ####[facility] ([id number])[address], [address], [place] [address] Chloride [Moles/Vol] 98 mmol/L Normal 98-109 [facility] Comment on above: Performed By: #### C KENDALL CANALES, , 2776-06 ####[facility] ([id number])[address], [address], [place] [address] CO2 [Moles/Vol] 27 mmol/L Normal 22-32 [facility] Comment on above: Performed By: #### KENDALL AHUJA, , 2776-06 ####[facility] ([id number])[address], [address], [place] [address] Creatinine [Mass/Vol] 1.47 mg/dL High 0.60-1.30 [facility] Comment on above: Result Comment: METH OD TRACEABLE TO IDMS STANDARD Performed By: #### C KENDALL CANALES, , 2776-06 ####[facility] ([id number])[address], [address], [place] [address] GFR/1.73 sq M.predicted among non-blacks MDRD (S/P/Bld) [Vol rate/Area] 55 mL/min/{1.73_m2} Low >59 [facility] Comment on above: Result Comment: Reported eGFR is based on the CKD-EPI 2020 equation that does not use a race coefficient. Performed By: #### C KENDALL CANALES, , 2776-06 ####[facility] ([id number])[address], [address], [place] [address] Glucose [Mass/Vol] 164 mg/dL High 65-99 [facility] Comment on above: Performed By: #### C ALLY, [facility], , 2776-06 ####[facility] ([id number])[address], [address], [place] [address] Potassium [Moles/Vol] 3.8 mmol/L Normal 3.5-5.0 [facility] Comment on above: Performed By: #### C , [facility], , 2776-06 ####[facility] ([id number])[address], [address] [place] [address] Sodium [Moles/Vol] 135 mmol/L Normal 134-146 [facility] Comment on above: Performed By: #### C ALLY, [facility], , 2776-06 ####[facility] ([id number])[address], [address] [place] [address] Urea nitrogen [Mass/Vol] 26 mg/dL High 5-23 [facility] Comment on above: Performed By: #### C ALLY, [facility], , 2776-06 ####[facility] ([id number])[address] [address], [place] [address] COMPLETE BLOOD COUNTon 11-12 Erythrocyte distribution width (RBC) [Ratio] 23.2 % High 11.5-15.0 [facility] Comment on above: Performed By: #### Snehal CANALES, [facility], , 2776-06 ####[facility] ([id number])[address] [address], [place] [address] Hematocrit (Bld) [Volume fraction] 24.7 % Low 39-49 [facility] Comment on above: Performed By: #### C ALLY, [facility], , 2776-06 ####[facility] ([id number])[address] [address], [place] [address] Hemoglobin (Bld) [Mass/Vol] 8.2 g/dL Low 13.0-17.0 [facility] Comment on above: Performed By: #### KENDALL AHUJA, , 2776-06 ####[facility] ([id number])[address], [address] [address] MCH (RBC) [Entitic mass] 25.7 pg Low 27-34 [facility] Comment on above: Performed By: #### KENDALL AHUJA, , 2776-06 ####[facility] ([id number])[address] [address] MCHC (RBC) [Mass/Vol] 33.4 g/dL Normal 32-36 [facility] Comment on above: Performed By: #### KENDALL AHUJA, , 2776-06 ####[facility] ([id number])[address] [address] MCV (RBC) [Entitic vol] 77 fL Low 80-100 [facility] Comment on above: Performed By: #### KENDALL AHUJA, , 2776-06 ####[facility] ([id number])[address] [address] [address] Platelet mean volume (Bld) [Entitic vol] 8.8 fL Normal 7-12 [facility] Comment on above: Performed By: #### KENDALL AHUJA, , 2776-06 ####[facility] ([id number])[address] [address] [address] Platelets (Bld) [#/Vol] 207 10*3/uL Normal 150-450 [facility] Comment on above: Performed By: #### KENDALL AHUJA, , 2776-06 ####[facility] ([id number])[address] [place] [address] RBC COUNT 3.21 X10E12/L Low 4.10-5.70 [facility] Comment on above: Performed By: #### KENDALL AHUJA, , 2776-06 ####[facility] ([id number])[address], [address], [place] [address] WBC (Bld) [#/Vol] 8.1 10*3/uL Normal 4.0-11.0 [facility] Comment on above: Performed By: #### KENDALL AHUJA, , 2776-06 ####[facility] ([id number])[address], [place] [address] Glucose Glucometer (BldC) [M ass/Vol]on 11-13-2023 Glucose [Mass/Vol] 230 mg/dL High 65-99 [facility] Glucose [Mass/Vol] 225 mg/dL High 65-99 [facility] Glucose [Mass/Vol] 331 mg/dL High 65-99 [facility] Glucose [Mass/Vol] 190 mg/dL High 65-99 [facility] MAGNESIUMon 11-13-2023 Magnesium [Mass/Vol] 2.1 mg/dL Normal 1.8-2.6 [facility] Comment on above: Performed By: #### KENDALL AHUJA, , 2776-06 ####[facility] ([id number])[address], [address] [place] [address] PHOSPHORUSon 11-13-2023 Phosphate [Mass/Vol] 3.8 mg/dL Normal 2.4-4.9 [facility] Comment on above: Performed By: #### KENDALL AHUJA, , 2776-06 ####[facility] ([id number])[address], [address], [place] [address] BASIC METABOLIC PANLon 11-11 Anion gap [Moles/Vol] 11 mmol/L Normal 5-15 [facility] Comment on above: Performed By: #### C ALLY, BMP #### [facility] ([id number]) [address], [address] [place] [address] Calcium [Mass/Vol] 9.0 mg/dL Normal 8.5-10.5 [facility] Comment on above: Performed By: #### C ALLY, BMP #### [facility] ([id number]) [address], [address] [place] [address] Chloride [Moles/Vol] 98 mmol/L Normal 98-109 [facility] Comment on above: Performed By: #### C ALLY, BMP #### [facility] ([id number]) [address], [address] [place] [address] CO2 [Moles/Vol] 25 mmol/L Normal 22-32 [facility] Comment on above: Performed By: #### C ALLY, BMP #### [facility] ([id number]) [address], [address] [place] [address] Creatinine [Mass/Vol] 1.40 mg/dL High 0.60-1.30 [facility] Comment on above: Result Comment: METH OD TRACEABLE TO IDMS STANDARD Performed By: #### C ALLY, BMP #### [facility] ([id number]) [address], [address] [place] [address] GFR/1.73 sq M.predicted among non-blacks MDRD (S/P/Bld) [Vol rate/Area] 58 mL/min/{1.73_m2} Low >59 [facility] Comment on above: Result Comment: Reported eGFR is based on the CKD-EPI 2020 equation that does not use a race coefficient. Performed By: #### C ALLY, BMP #### [facility] ([id number]) [address], [address] [place] [address] Glucose [Mass/Vol] 194 mg/dL High 65-99 [facility] Comment on above: Performed By: #### C ALLY, BMP #### [facility] ([id number]) [address], [address] [place] [address] Potassium [Moles/Vol] 4.0 mmol/L Normal 3.5-5.0 [facility] Comment on above: Performed By: #### C ALLY, BMP #### [facility] ([id number]) [address], [address] [place] [address] Sodium [Moles/Vol] 134 mmol/L Normal 134-146 [facility] Comment on above: Performed By: #### C ALLY, BMP #### [facility] ([id number]) [address], [address] [place] [address] Urea nitrogen [Mass/Vol] 23 mg/dL Normal 5-23 [facility] Comment on above: Performed By: #### C ALLY, BMP #### [facility] ([id number]) [address], [address] [place] [address] COMPLETE BLOOD COUNTon 11-11 Erythrocyte distribution width (RBC) [Ratio] 24.1 % High 11.5-15.0 [facility] Comment on above: Performed By: #### C ALLY, BMP #### [facility] ([id number]) [address], [address] [place] [address] Hematocrit (Bld) [Volume fraction] 25.8 % Low 39-49 [facility] Comment on above: Performed By: #### C ALLY, BMP #### [facility] ([id number]) [address], [address] [place] [address] Hemoglobin (Bld) [Mass/Vol] 8.6 g/dL Low 13.0-17.0 [facility] Comment on above: Performed By: #### C ALLY, BMP #### [facility] ([id number]) [address], [address] [place] [address] MCH (RBC) [Entitic mass] 25.7 pg Low 27-34 [facility] Comment on above: Performed By: #### C ALLY, BMP #### [facility] ([id number]) [address], [address] [place] [address] MCHC (RBC) [Mass/Vol] 33.5 g/dL Normal 32-36 [facility] Comment on above: Performed By: #### C ALLY, BMP #### [facility] ([id number]) [address], [address] [place] [address] MCV (RBC) [Entitic vol] 77 fL Low 80-100 [facility] Comment on above: Performed By: #### C ALLY, BMP #### [facility] ([id number]) [address], [address] [place] [address] Platelet mean volume (Bld) [Entitic vol] 9.2 fL Normal 7-12 [facility] Comment on above: Performed By: #### Snehal CANALES, BMP #### [facility] ([id number]) [address], [address] [place] [address] Platelets (Bld) [#/Vol] 185 10*3/uL Normal 150-450 [facility] Comment on above: Performed By: #### Snehal CANALES, BMP #### [facility] ([id number]) [address], [address] [place] [address] RBC COUNT 3.37 X10E12/L Low 4.10-5.70 [facility] Comment on above: Performed By: #### C ALLY, BMP #### [facility] ([id number]) [address], [address] [place] [address] WBC (Bld) [#/Vol] 10.0 10*3/uL Normal 4.0-11.0 [facility] Comment on above: Performed By: #### Snehal CANALES, BMP #### [facility] ([id number]) [address], [address] [place] [address] Glucose Glucometer (BldC) [M ass/Vol]on 11-12-2023 Glucose [Mass/Vol] 230 mg/dL High 65-99 [facility] Glucose [Mass/Vol] 280 mg/dL High 65-99 [facility] Glucose [Mass/Vol] 268 mg/dL High 65-99 [facility] Glucose [Mass/Vol] 220 mg/dL High 65-99 [facility] Glucose [Mass/Vol] 205 mg/dL High 65-99 [facility] MAGNESIUMon 11-12-2023 Magnesium [Mass/Vol] 1.8 mg/dL Normal 1.8-2.6 [facility] Comment on above: Performed By: #### Snehal CANALES, BMP #### [facility] ([id number]) [address], [address] [place] [address] PHOSPHORUSon 11-12-2023 Phosphate [Mass/Vol] 3.8 mg/dL Normal 2.4-4.9 [facility] Comment on above: Performed By: #### Snehal CANALES, BMP #### [facility] ([id number]) [address], [address] [place] [address] BASIC METABOLIC PANLon 11-10 Anion gap [Moles/Vol] 8 mmol/L Normal 5-15 [facility] Comment on above: Performed By: #### Snehal CANALES, BMP #### [facility] ([id number]) [address], [address] [place] [address] Calcium [Mass/Vol] 8.7 mg/dL Normal 8.5-10.5 [facility] Comment on above: Performed By: #### Snehal CANALES, BMP #### [facility] ([id number]) [address], [address] [place] [address] Chloride [Moles/Vol] 99 mmol/L Normal 98-109 [facility] Comment on above: Performed By: #### C ALLY, BMP #### [facility] ([id number]) [address], [address] [place] [address] CO2 [Moles/Vol] 26 mmol/L Normal 22-32 [facility] Comment on above: Performed By: #### C ALLY, BMP #### [facility] ([id number]) [address], [address] [place] [address] Creatinine [Mass/Vol] 1.45 mg/dL High 0.60-1.30 [facility] Comment on above: Result Comment: METH OD TRACEABLE TO IDMS STANDARD Performed By: #### C ALLY, BMP #### [facility] ([id number]) [address], [address] [place] [address] GFR/1.73 sq M.predicted among non-blacks MDRD (S/P/Bld) [Vol rate/Area] 56 mL/min/{1.73_m2} Low >59 [facility] Comment on above: Result Comment: Reported eGFR is based on the CKD-EPI 2020 equation that does not use a race coefficient. Performed By: #### C ALLY, BMP #### [facility] ([id number]) [address], [address] [place] [address] Glucose [Mass/Vol] 153 mg/dL High 65-99 [facility] Comment on above: Performed By: #### Snehal CANALES, BMP #### [facility] ([id number]) [address], [address] [place] [address] Potassium [Moles/Vol] 3.9 mmol/L Normal 3.5-5.0 [facility] Comment on above: Performed By: #### Snehal CANALES, BMP #### [facility] ([id number]) [address], [address] [place] [address] Sodium [Moles/Vol] 133 mmol/L Low 134-146 [facility] Comment on above: Performed By: #### C BC, BMP #### [facility] ([id number]) [address], [address] [place] [address] Urea nitrogen [Mass/Vol] 27 mg/dL High 5-23 [facility] Comment on above: Performed By: #### C BC, BMP #### [facility] ([id number]) [address], [address] [place] [address] COMPLETE BLOOD COUNTon 11-10 Erythrocyte distribution width (RBC) [Ratio] 24.2 % High 11.5-15.0 [facility] Comment on above: Performed By: #### C ALLY, BMP #### [facility] ([id number]) [address], [address] [place] [address] Hematocrit (Bld) [Volume fraction] 25.1 % Low 39-49 [facility] Comment on above: Performed By: #### C BC, BMP #### [facility] ([id number]) [address], [address] [place] [address] Hemoglobin (Bld) [Mass/Vol] 8.2 g/dL Low 13.0-17.0 [facility] Comment on above: Performed By: #### C BC, BMP #### [facility] ([id number]) [address], [address] [place] [address] MCH (RBC) [Entitic mass] 25.5 pg Low 27-34 [facility] Comment on above: Performed By: #### C BC, BMP #### [facility] ([id number]) [address], [address] [place] [address] MCHC (RBC) [Mass/Vol] 32.7 g/dL Normal 32-36 [facility] Comment on above: Performed By: #### C BC, BMP #### [facility] ([id number]) [address], [address] [place] [address] MCV (RBC) [Entitic vol] 78 fL Low 80-100 [facility] Comment on above: Performed By: #### Snehal CANALES, BMP #### [facility] ([id number]) [address], [address] [place] [address] Platelet mean volume (Bld) [Entitic vol] 9.0 fL Normal 7-12 [facility] Comment on above: Performed By: #### Snehal CANALES, BMP #### [facility] ([id number]) [address], [address] [place] [address] Platelets (Bld) [#/Vol] 152 10*3/uL Normal 150-450 [facility] Comment on above: Performed By: #### Snehal CANALES, BMP #### [facility] ([id number]) [address], [address] [place] [address] RBC COUNT 3.22 X10E12/L Low 4.10-5.70 [facility] Comment on above: Performed By: #### Snehal CANALES, BMP #### [facility] ([id number]) [address], [facility] [address] [place] [address] WBC (Bld) [#/Vol] 9.8 10*3/uL Normal 4.0-11.0 [facility] Comment on above: Performed By: #### Snehal CANALES, BMP #### [facility] ([id number]) [address], [address] [place] [address] Glucose Glucometer (BldC) [M ass/Vol]on 11-11-2023 Glucose [Mass/Vol] 184 mg/dL High 65-99 [facility] Glucose [Mass/Vol] 179 mg/dL High 65-99 [facility] Glucose [Mass/Vol] 222 mg/dL High 65-99 [facility] Glucose [Mass/Vol] 303 mg/dL High 65-99 [facility] MAGNESIUMon 11-11-2023 Magnesium [Mass/Vol] 2.4 mg/dL Normal 1.8-2.6 [facility] Comment on above: Performed By: #### Snehal CANALES, BMP #### [facility] ([id number]) [address], [address] [place] [address] Magnesium [Mass/Vol] 1.9 mg/dL Normal 1.8-2.6 [facility] Comment on above: Performed By: #### Snehal CANALES, BMP #### [facility] ([id number]) [address], [address] [place] [address] PHOSPHORUSon 11-11-2023 Phosphate [Mass/Vol] 3.2 mg/dL Normal 2.4-4.9 [facility] Comment on above: Performed By: #### Snehal CANALES, BMP #### [facility] ([id number]) [address], [address] [place] [address] BASIC METABOLIC PANLon 11-09 Anion gap [Moles/Vol] 6 mmol/L Normal 5-15 [facility] Comment on above: Performed By: #### KENDALL AHUJA, , 1 ####[facility] ([id number])[address], [address], [place] [address] Calcium [Mass/Vol] 8.5 mg/dL Normal 8.5-10.5 [facility] Comment on above: Performed By: #### KENDALL AHUJA, , 2776-1 ####[facility] ([id number])[address], [address], [place] [address] Chloride [Moles/Vol] 102 mmol/L Normal 98-109 [facility] Comment on above: Performed By: #### KENDALL AHUJA, , 2776- ####[facility] ([id number])[address], [address], [place] [address] CO2 [Moles/Vol] 26 mmol/L Normal 22-32 [facility] Comment on above: Performed By: #### C KENDALL CANALES, , 2776-06 ####[facility] ([id number])[address], [address] [address] Creatinine [Mass/Vol] 1.59 mg/dL High 0.60-1.30 [facility] Comment on above: Result Comment: METH OD TRACEABLE TO IDMS STANDARD Performed By: #### C KENDALL CANALES, , 2776-06 ####[facility] ([id number])[address] [address], [place] [address] GFR/1.73 sq M.predicted among non-blacks MDRD (S/P/Bld) [Vol rate/Area] 50 mL/min/{1.73_m2} Low >59 [facility] Comment on above: Result Comment: Reported eGFR is based on the CKD-EPI 2020 equation that does not use a race coefficient. Performed By: #### C KENDALL CANALES, , 2776-06 ####[facility] ([id number])[address] [address] [address] Glucose [Mass/Vol] 145 mg/dL High 65-99 [facility] Comment on above: Performed By: #### KENDALL AHUJA, , 2776-06 ####[facility] ([id number])[address] [address] [address] Potassium [Moles/Vol] 3.9 mmol/L Normal 3.5-5.0 [facility] Comment on above: Performed By: #### KENDALL AHUJA, , 2776-06 ####[facility] ([id number])[address] [address] [place] [address] Sodium [Moles/Vol] 134 mmol/L Normal 134-146 [facility] Comment on above: Performed By: #### C BC, [facility], , 2776-06 ####[facility] ([id number])[address] [address], [place] [address] Urea nitrogen [Mass/Vol] 23 mg/dL Normal 5-23 [facility] Comment on above: Performed By: #### C ALLY, [facility], , 2776-06 ####[facility] ([id number])[address] [address], [place] [address] COMPLETE BLOOD COUNTon 11-09 Erythrocyte distribution width (RBC) [Ratio] 24.9 % High 11.5-15.0 [facility] Comment on above: Performed By: #### C ALLY, [facility], , 2776-06 ####[facility] ([id number])[address] [address], [place] [address] Hematocrit (Bld) [Volume fraction] 24.5 % Low 39-49 [facility] Comment on above: Performed By: #### C ALLY, [facility], , 2776-06 ####[facility] ([id number])[address] [address], [place] [address] Hemoglobin (Bld) [Mass/Vol] 7.9 g/dL Low 13.0-17.0 [facility] Comment on above: Performed By: #### C ALLY, [facility], , 2776-06 ####[facility] ([id number])[address] [address], [place] [address] MCH (RBC) [Entitic mass] 25.4 pg Low 27-34 [facility] Comment on above: Performed By: #### C BC, BMP, , 2776-06 ####[facility] ([id number])[address] [address], [place] [address] MCHC (RBC) [Mass/Vol] 32.4 g/dL Normal 32-36 [facility] Comment on above: Performed By: #### C ALLY, BMP, , 2776-06 ####[facility] ([id number])[address], [address], [place] [address] MCV (RBC) [Entitic vol] 78 fL Low 80-100 [facility] Comment on above: Performed By: #### Snehal CANALES, BMP, , 2776-06 ####[facility] ([id number])[address], [address] [address] Platelet mean volume (Bld) [Entitic vol] 9.1 fL Normal 7-12 [facility] Comment on above: Performed By: #### KENDALL AHUJA, , 2776-06 ####[facility] ([id number])[address] [address] Platelets (Bld) [#/Vol] 142 10*3/uL Low 150-450 [facility] Comment on above: Performed By: #### Snehal CANALES, BMP, , 2776-06 ####[facility] ([id number])[address] [place] [address] RBC COUNT 3.14 X10E12/L Low 4.10-5.70 [facility] Comment on above: Performed By: #### Snehal CANALES, BMP, , 2776-06 ####[facility] ([id number])[address], [address] [address] WBC (Bld) [#/Vol] 9.7 10*3/uL Normal 4.0-11.0 [facility] Comment on above: Performed By: #### Snehal CANALES, BMP, , 2776-06 ####[facility] ([id number])[address], [address] [place] [address] Glucose Glucometer (BldC) [M ass/Vol]on 11-10-2023 Glucose [Mass/Vol] 168 mg/dL High 65-99 [facility] Glucose [Mass/Vol] 245 mg/dL High 65-99 [facility] Glucose [Mass/Vol] 155 mg/dL High 65-99 [facility] Glucose [Mass/Vol] 153 mg/dL High 65-99 [facility] MAGNESIUMon 11-10-2023 Magnesium [Mass/Vol] 2.2 mg/dL Normal 1.8-2.6 [facility] Comment on above: Performed By: #### Snehal CANALES, BMP #### [facility] ([id number]) [address], [address] [place] [address] Magnesium [Mass/Vol] 1.8 mg/dL Normal 1.8-2.6 [facility] Comment on above: Performed By: #### Snehal CANALES, KENDALL, , 1 ####[facility] ([id number])[address], [address] [place] [address] PHOSPHORUSon 11-10-2023 Phosphate [Mass/Vol] 3.1 mg/dL Normal 2.4-4.9 [facility] Comment on above: Performed By: #### Snehal CANALES, KENDALL, , 1 ####[facility] ([id number])[address], [address] [place] [address] BASIC METABOLIC PANLon 11-08 Anion gap [Moles/Vol] 9 mmol/L Normal 5-15 [facility] Comment on above: Performed By: #### Snehal CANALES, 2639-3, BMP, 2156-6, , 2776-1 ####[facility] ([id number])[address], [address] [place] [address] Calcium [Mass/Vol] 8.4 mg/dL Low 8.5-10.5 [facility] Comment on above: Performed By: #### C BC, 2639-3, BMP, 7-6, 25505-6, 2776- ####[facility] ([id number])[address] [address] [place] [address] Chloride [Moles/Vol] 104 mmol/L Normal 98-109 [facility] Comment on above: Performed By: #### C BC, 2639-3, BMP, 2156-6, , 2776- ####[facility] ([id number])[address] [address] CO2 [Moles/Vol] 25 mmol/L Normal 22-32 [facility] Comment on above: Performed By: #### C BC, 2639-3, BMP, 2156-6, , 2776-1 ####[facility] ([id number])[address] [address] Creatinine [Mass/Vol] 1.35 mg/dL High 0.60-1.30 [facility] Comment on above: Result Comment: METH OD TRACEABLE TO IDMS STANDARD Performed By: #### C BC, 2639-3, BMP, 2156-6, 65955-6, 2776-1 ####[facility] ([id number])[address] [address] GFR/1.73 sq M.predicted among non-blacks MDRD (S/P/Bld) [Vol rate/Area] 61 mL/min/{1.73_m2} Normal >59 [facility] Comment on above: Result Comment: Reported eGFR is based on the CKD-EPI 2020 equation that does not use a race coefficient. Performed By: #### C BC, 2639-3, BMP, 2156-6, 13778-6, 2776-1 ####[facility] ([id number])[address], [place] [address] Glucose [Mass/Vol] 217 mg/dL High 65-99 [facility] Comment on above: Performed By: #### C ALLY, 2639-3, BMP, 2156-11, , 2776- ####[facility] ([id number])[address], [address] [place] [address] Potassium [Moles/Vol] 4.2 mmol/L Normal 3.5-5.0 [facility] Comment on above: Performed By: #### C ALLY, 9-3, BMP, 2156-11, , 2776- ####[facility] ([id number])[address], [address], [place] [address] Sodium [Moles/Vol] 138 mmol/L Normal 134-146 [facility] Comment on above: Performed By: #### C ALLY, 2638-3, BMP, 2156-11, , 2776-06 ####[facility] ([id number])[address], [address] [address] Urea nitrogen [Mass/Vol] 23 mg/dL Normal 5-23 [facility] Comment on above: Performed By: #### C ALLY, 2638-3, BMP, 2156-11, , 2771 ####[facility] ([id number])[address], [address], [place] [address] CK [Catalytic activity/Vol]o n 11-09-2023 CPK 44 U/L Normal 24-195 [facility] Comment on above: Performed By: #### 2 157-6, 2638-3 ####[facility] ([id number])[address], [address], [place] [address] CPK 30 U/L Normal 24-195 [facility] Comment on above: Performed By: #### C ALLY, 2639-3, BMP, 6, , 2776-06 ####[facility] ([id number])[address], [address] [place] [address] COMPLETE BLOOD COUNTon 11-08 Erythrocyte distribution width (RBC) [Ratio] 24.9 % High 11.5-15.0 [facility] Comment on above: Performed By: #### Snehal BC, 2639-3, BMP, 2156-6, , 2776- ####[facility] ([id number])[address], [address] [place] [address] Hematocrit (Bld) [Volume fraction] 26.8 % Low 39-49 [facility] Comment on above: Performed By: #### Snehal BC, 2639-3, BMP, 2156-6, , 2776-06 ####[facility] ([id number])[address], [address] [place] [address] Hemoglobin (Bld) [Mass/Vol] 8.7 g/dL Low 13.0-17.0 [facility] Comment on above: Performed By: #### Snehal BC, 2639-3, BMP, 2156-, , 2776-06 ####[facility] ([id number])[address] [address] [place] [address] MCH (RBC) [Entitic mass] 24.8 pg Low 27-34 [facility] Comment on above: Performed By: #### C BC, 2639-3, BMP, 2156-6, , 2776- ####[facility] ([id number])[address], [address] [place] [address] MCHC (RBC) [Mass/Vol] 32.6 g/dL Normal 32-36 [facility] Comment on above: Performed By: #### C BC, 2639-3, BMP, 2156-6, , 2776-06 ####[facility] ([id number])[address], [address] [place] [address] MCV (RBC) [Entitic vol] 76 fL Low 80-100 [facility] Comment on above: Performed By: #### C ALLY, 2639-3, BMP, 2156-6, , 2776-06 ####[facility] ([id number])[address], [address] [place] [address] Platelet mean volume (Bld) [Entitic vol] 9.3 fL Normal 7-12 [facility] Comment on above: Performed By: #### Snehal CANALES, 2639-3, BMP, 2156-11, , 2776-06 ####[facility] ([id number])[address] [address] [place] [address] Platelets (Bld) [#/Vol] 184 10*3/uL Normal 150-450 [facility] Comment on above: Performed By: #### Snehal CANALES, 2639-3, BMP, 2156-, , 2776-06 ####[facility] ([id number])[address], [address] [place] [address] RBC COUNT 3.53 X10E12/L Low 4.10-5.70 [facility] Comment on above: Performed By: #### Snehal CANALES, 2639-3, BMP, 2156-11, , 2776-06 ####[facility] ([id number])[address] [address] [place] [address] WBC (Bld) [#/Vol] 11.0 10*3/uL Normal 4.0-11.0 [facility] Comment on above: Performed By: #### Snehal CANALES, 2639-3, BMP, 2156-11, , 2776-06 ####[facility] ([id number])[address] [facility] [place] [address] Glucose Glucometer (BldC) [M ass/Vol]on 11-09-2023 Glucose [Mass/Vol] 243 mg/dL High 65-99 [facility] Glucose [Mass/Vol] 184 mg/dL High 65-99 [facility] Glucose [Mass/Vol] 199 mg/dL High 65-99 [facility] Glucose [Mass/Vol] 218 mg/dL High 65-99 [facility] Heparin unfractionated Chrom ogenic method Qn (PPP)on 11-09-2023 ANTI XA UFH 0.15 IU/mL Low 0.30-0.70 [facility] Comment on above: Result Comment: Opti mal time for testing is 6 hrs post dosage This test is specific for monitoring patients on UFH, and is not recommended for use with other Anti-Xa medications. Performed By: #### 3 274-8 ####[facility] ([id number])[address] [facility], [address] [place] [address] MAGNESIUMon 11-09-2023 Magnesium [Mass/Vol] 2.2 mg/dL Normal 1.8-2.6 [facility] Comment on above: Performed By: #### C ALLY, 2639-3, [facility], 2156-11, 18909-3, 2777-1 ####[facility] ([id number])2130 [facility], [address] [place] [address] Myoglobin [Mass/Vol]on 11-08 SERUM MYOGLOBIN 97.7 ng/mL Normal 17.4-105.7 [facility] Comment on above: Performed By: #### 2 157-6, 2639-3 ####[facility] ([id number])2130 [facility], [address] [place] [address] SERUM MYOGLOBIN 51.7 ng/mL Normal 17.4-105.7 [facility] Comment on above: Performed By: #### C ALLY, 2639-3, BMP, 2156-11, , 2776-06 ####[facility] ([id number])[address], [address] [address] PHOSPHORUSon 11-09-2023 Phosphate [Mass/Vol] 4.4 mg/dL Normal 2.4-4.9 [facility] Comment on above: Performed By: #### C BC, 2639-3, BMP, 2156-11, , 2776-06 ####[facility] ([id number])[address], [address], [place] [address] BASIC METABOLIC PANLon 11-07 Anion gap [Moles/Vol] 9 mmol/L Normal 5-15 [facility] Comment on above: Performed By: #### P INR #### [facility] ([id number]) [address], [address] [place] [address] Calcium [Mass/Vol] 8.4 mg/dL Low 8.5-10.5 [facility] [place] Comment on above: Performed By: #### P INR #### [facility] ([id number]) [address], [address] [place] [address] Chloride [Moles/Vol] 106 mmol/L Normal 98-109 [facility] Comment on above: Performed By: #### P INR #### [facility] ([id number]) [address], [address] [place] [address] CO2 [Moles/Vol] 24 mmol/L Normal 22-32 [facility] Comment on above: Performed By: #### P INR #### [facility] ([id number]) [address], [address] [place] [address] Creatinine [Mass/Vol] 1.30 mg/dL Normal 0.60-1.30 [facility] Comment on above: Result Comment: METH OD TRACEABLE TO IDMS STANDARD Performed By: #### P INR #### [facility] ([id number]) [address] [place] [address] GFR/1.73 sq M.predicted among non-blacks MDRD (S/P/Bld) [Vol rate/Area] 64 mL/min/{1.73_m2} Normal >59 [facility] Comment on above: Result Comment: Reported eGFR is based on the CKD-EPI 2020 equation that does not use a race coefficient. Performed By: #### P INR #### [facility] ([id number]) [address], [address] [place] [address] Glucose [Mass/Vol] 163 mg/dL High 65-99 [facility] Comment on above: Performed By: #### P INR #### [facility] ([id number]) [address] [facility] [place] [address] Potassium [Moles/Vol] 4.1 mmol/L Normal 3.5-5.0 [facility] Comment on above: Performed By: #### P INR #### [facility] ([id number]) [address], [address] [place] [address] Sodium [Moles/Vol] 139 mmol/L Normal 134-146 [facility] Comment on above: Performed By: #### P INR #### [facility] ([id number]) [address] [facility] [place] [address] Urea nitrogen [Mass/Vol] 23 mg/dL Normal 5-23 [facility] Comment on above: Performed By: #### P INR #### [facility] ([id number]) [address] [facility] [place] [address] Anion gap [Moles/Vol] 9 mmol/L Normal 5-15 [facility] Comment on above: Performed By: #### C BC, BMP #### [facility] ([id number]) [address] [place] [address] Calcium [Mass/Vol] 8.8 mg/dL Normal 8.5-10.5 [facility] Comment on above: Performed By: #### C ALLY, BMP #### [facility] ([id number]) [address] [place] [address] Chloride [Moles/Vol] 104 mmol/L Normal 98-109 [facility] Comment on above: Performed By: #### C ALLY, BMP #### [facility] ([id number]) [address] [place] [address] CO2 [Moles/Vol] 25 mmol/L Normal 22-32 [facility] Comment on above: Performed By: #### Snehal CANALES, BMP #### [facility] ([id number]) [address] [place] [address] Creatinine [Mass/Vol] 1.70 mg/dL High 0.60-1.30 [facility] Comment on above: Result Comment: METH OD TRACEABLE TO IDMS STANDARD Performed By: #### C ALLY, BMP #### [facility] ([id number]) [address] [address] GFR/1.73 sq M.predicted among non-blacks MDRD (S/P/Bld) [Vol rate/Area] 46 mL/min/{1.73_m2} Low >59 [facility] Comment on above: Result Comment: Reported eGFR is based on the CKD-EPI 2020 equation that does not use a race coefficient. Performed By: #### C ALLY, BMP #### [facility] ([id number]) [address], [address] [place] [address] Glucose [Mass/Vol] 111 mg/dL High 65-99 [facility] Comment on above: Performed By: #### C ALLY, BMP #### [facility] ([id number]) [address] [place] [address] Potassium [Moles/Vol] 3.8 mmol/L Normal 3.5-5.0 [facility] Comment on above: Performed By: #### C BC, BMP #### [facility] ([id number]) [address] [place] [address] Sodium [Moles/Vol] 138 mmol/L Normal 134-146 [facility] Comment on above: Performed By: #### C BC, BMP #### [facility] ([id number]) [address], [address] [place] [address] Urea nitrogen [Mass/Vol] 28 mg/dL High 5-23 [facility] Comment on above: Performed By: #### C BC, BMP #### [facility] ([id number]) [address], [address] [place] [address] CK [Catalytic activity/Vol]o n 11-08-2023 CPK 26 U/L Normal 24-195 [facility] Comment on above: Performed By: #### P INR #### [facility] ([id number]) [address], [facility] [address] [place] [address] COMPLETE BLOOD COUNTon 11-07 Erythrocyte distribution width (RBC) [Ratio] 24.8 % High 11.5-15.0 [facility] Comment on above: Performed By: #### P INR #### [facility] ([id number]) [address], [address] [place] [address] Hematocrit (Bld) [Volume fraction] 29.3 % Low 39-49 [facility] Comment on above: Performed By: #### P INR #### [facility] ([id number]) [address], [address] [place] [address] Hemoglobin (Bld) [Mass/Vol] 9.6 g/dL Low 13.0-17.0 [facility] Comment on above: Performed By: #### P INR #### [facility] ([id number]) [address], [address] [place] [address] MCH (RBC) [Entitic mass] 24.9 pg Low 27-34 [facility] Comment on above: Performed By: #### P INR #### [facility] ([id number]) [address], [address] [place] [address] MCHC (RBC) [Mass/Vol] 32.7 g/dL Normal 32-36 [facility] Comment on above: Performed By: #### P INR #### [facility] ([id number]) [address], [address] [place] [address] MCV (RBC) [Entitic vol] 76 fL Low 80-100 [facility] Comment on above: Performed By: #### P INR #### [facility] ([id number]) [address], [address] [place] [address] Platelet mean volume (Bld) [Entitic vol] 8.7 fL Normal 7-12 [facility] Comment on above: Performed By: #### P INR #### [facility] ([id number]) [address], [address] [place] [address] Platelets (Bld) [#/Vol] 169 10*3/uL Normal 150-450 [facility] Comment on above: Performed By: #### P INR #### [facility] ([id number]) [address], [address] [place] [address] RBC COUNT 3.85 X10E12/L Low 4.10-5.70 [facility] Comment on above: Performed By: #### P INR #### [facility] ([id number]) [address], [address] [place] [address] WBC (Bld) [#/Vol] 13.5 10*3/uL High 4.0-11.0 [facility] Comment on above: Performed By: #### P INR #### [facility] ([id number]) [address], [address] [place] [address] Erythrocyte distribution width (RBC) [Ratio] 25.2 % High 11.5-15.0 [facility] Comment on above: Performed By: #### C BC, BMP #### [facility] ([id number]) [address], [address] [place] [address] Hematocrit (Bld) [Volume fraction] 33.0 % Low 39-49 [facility] Comment on above: Performed By: #### C BC, BMP #### [facility] ([id number]) [address], [address] [place] [address] Hemoglobin (Bld) [Mass/Vol] 10.8 g/dL Low 13.0-17.0 [facility] Comment on above: Performed By: #### C BC, BMP #### [facility] ([id number]) [address], [address] [place] [address] MCH (RBC) [Entitic mass] 25.0 pg Low 27-34 [facility] Comment on above: Performed By: #### C BC, BMP #### [facility] ([id number]) [address], [address] [place] [address] MCHC (RBC) [Mass/Vol] 32.8 g/dL Normal 32-36 [facility] Comment on above: Performed By: #### C BC, BMP #### [facility] ([id number]) [address] [place] [address] MCV (RBC) [Entitic vol] 76 fL Low 80-100 [facility] Comment on above: Performed By: #### C BC, BMP #### [facility] ([id number]) [address] [place] [address] Platelet mean volume (Bld) [Entitic vol] 8.8 fL Normal 7-12 [facility] Comment on above: Performed By: #### C BC, BMP #### [facility] ([id number]) [address], [address] [place] [address] Platelets (Bld) [#/Vol] 172 10*3/uL Normal 150-450 [facility] Comment on above: Performed By: #### C BC, BMP #### [facility] ([id number]) [address], [address] [place] [address] RBC COUNT 4.33 X10E12/L Normal 4.10-5.70 [facility] Comment on above: Performed By: #### C BC, BMP #### [facility] ([id number]) [address], [address] [place] [address] WBC (Bld) [#/Vol] 9.3 10*3/uL Normal 4.0-11.0 [facility] Comment on above: Performed By: #### C BC, BMP #### [facility] ([id number]) [address], [address] [place] [address] Glucose Glucometer (dC) [M ass/Vol]on 11-08-2023 Glucose [Mass/Vol] 162 mg/dL High 65-99 [facility] Glucose [Mass/Vol] 96 mg/dL Normal 65-99 [facility] Glucose [Mass/Vol] 142 mg/dL High 65-99 [facility] Glucose [Mass/Vol] 114 mg/dL High 65-99 [facility] Lactate (P ekaterina) [Moles/Vol]o n 11-08-2023 LACTATE W/REFLEX 1.0 mmol/L Normal 0.4-2.0 [facility] Comment on above: Result Comment: Result did not trigger repeat Lactate, re-order if needed. Performed By: #### P INR #### [facility] ([id number]) [address] [facility] [place] [address] MAGNESIUMon 11-08-2023 Magnesium [Mass/Vol] 1.7 mg/dL Low 1.8-2.6 [facility] Comment on above: Performed By: #### P INR #### [facility] ([id number]) [address] [facility] [place] [address] Myoglobin [Mass/Vol]on 11-07 SERUM MYOGLOBIN 33.1 ng/mL Normal 17.4-105.7 [facility] Comment on above: Performed By: #### P INR #### [facility] ([id number]) [address] [place] [address] PHOSPHORUSon 11-08-2023 Phosphate [Mass/Vol] 4.0 mg/dL Normal 2.4-4.9 [facility] Comment on above: Performed By: #### P INR #### [facility] ([id number]) [address] [facility] [place] [address] PROTIME AND INRon 11-08-2023 INR Coag (PPP) [Relative time] 1.3 {INR} High 0.8-1.1 [facility] Comment on above: Performed By: #### P INR #### [facility] ([id number]) [address] [facility] [place] [address] PT Coag (PPP) [Time] 14.7 s High 9.8-13.2 [facility] Comment on above: Performed By: #### P INR #### [facility] ([id number]) [address] [facility] [address] [place] [address] RAPID CARDIACon 11-08-2023 COURTNEY'S TEST Normal [facility] Comment on above: Performed By: #### A FAB5 #### [facility] ([id number]) [address] [place] [address] Base excess Calc (Bld) [Moles/Vol] 0.1 mmol/L Normal 0.0-2.0 [facility] Comment on above: Performed By: #### A FAB5 #### [facility] ([id number]) [address] [place] [address] Body temperature 98.6 [degF] Normal 37.0 [facility] Comment on above: Performed By: #### A FAB5 #### [facility] ([id number]) [address] [place] [address] Glucose [Mass/Vol] 117 mg/dL High 65-99 [facility] Comment on above: Performed By: #### A FAB5 #### [facility] ([id number]) [address] [place] [address] HCO3 (Bld) [Moles/Vol] 24.8 mmol/L Normal 22-26 [facility] Comment on above: Performed By: #### A FAB5 #### [facility] ([id number]) [address] [place] [address] Hematocrit (Bld) [Volume fraction] 31 % Low 39-49 [facility] Comment on above: Performed By: #### A FAB5 #### [facility] ([id number]) [address] [place] [address] Hemoglobin (Bld) [Mass/Vol] 10.2 g/dL Low 13.0-17.0 [facility] Comment on above: Performed By: #### A FAB5 #### [facility] ([id number]) [address] [place] [address] INSP. O2 CONC. 100 % Normal [facility] Comment on above: Performed By: #### A FAB5 #### [facility] ([id number]) [address] [place] [address] IONIZED CALCIUM 4.8 mg/dL Normal 4.5-5.3 [facility] Comment on above: Performed By: #### A FAB5 #### [facility] ([id number]) [address] [place] [address] Oxygen (Bld) [Partial pressure] 167 mm[Hg] High 80-100 [facility] Comment on above: Performed By: #### A FAB5 #### [facility] ([id number]) [address] [place] [address] Oxygen saturation in Blood 100.8 % Normal >90 [facility] Comment on above: Performed By: #### A FAB5 #### [facility] ([id number]) [address] [place] [address] PCO2 39.7 MMHG Normal 35-45 [facility] Comment on above: Performed By: #### A FAB5 #### [facility] ([id number]) [address] [place] [address] pH (Bld) 7.404 [pH] Normal 7.350-7.45 0 [facility] Comment on above: Performed By: #### A FAB5 #### [facility] ([id number]) [address] [place] [address] Potassium [Moles/Vol] 3.8 mmol/L Normal 3.5-5.0 [facility] Comment on above: Performed By: #### A FAB5 #### [facility] ([id number]) [address] [place] [address] SAMPLE SITE KECIA Normal [facility] Comment on above: Performed By: #### A FAB5 #### [facility] ([id number]) [address] [place] [address] SAMPLE TYPE Arterial Normal [facility] Comment on above: Performed By: #### A FAB5 #### [facility] ([id number]) [address] [place] [address] RAPID CARDIAC W/ NAon 2023 COURTNEY'S TEST Normal [facility] Comment on above: Performed By: #### P INR #### [facility] ([id number]) [address] [place] [address] Base excess Calc (Bld) [Moles/Vol] 0.2 mmol/L Normal 0.0-2.0 [facility] Comment on above: Performed By: #### P INR #### [facility] ([id number]) [address] [place] [address] Body temperature 98.6 [degF] Normal 37.0 [facility] Comment on above: Performed By: #### P INR #### [facility] ([id number]) [address] [place] [address] Glucose [Mass/Vol] 125 mg/dL High 65-99 [facility] Comment on above: Performed By: #### P INR #### [facility] ([id number]) [address] [place] [address] HCO3 (Bld) [Moles/Vol] 25.3 mmol/L Normal 22-26 [facility] Comment on above: Performed By: #### P INR #### [facility] ([id number]) [address] [place] [address] Hematocrit (Bld) [Volume fraction] 31 % Low 39-49 [facility] Comment on above: Performed By: #### P INR #### [facility] ([id number]) [address] [place] [address] Hemoglobin (Bld) [Mass/Vol] 10.0 g/dL Low 13.0-17.0 [facility] Comment on above: Performed By: #### P INR #### [facility] ([id number]) [address] [place] [address] INSP. O2 CONC. 50 % Normal [facility] Comment on above: Performed By: #### P INR #### [facility] ([id number]) [address] [place] [address] IONIZED CALCIUM 4.7 mg/dL Normal 4.5-5.3 [facility] Comment on above: Performed By: #### P INR #### [facility] ([id number]) [address] [place] [address] Oxygen (Bld) [Partial pressure] 131 mm[Hg] High 80-100 [facility] Comment on above: Performed By: #### P INR #### [facility] ([id number]) [address] [place] [address] Oxygen saturation in Blood 99.9 % Normal >90 [facility] Comment on above: Performed By: #### P INR #### [facility] ([id number]) [address] [place] [address] PCO2 42.7 MMHG Normal 35-45 [facility] Comment on above: Performed By: #### P INR #### [facility] ([id number]) [address] [place] [address] pH (Bld) 7.381 [pH] Normal 7.350-7.45 0 [facility] Comment on above: Performed By: #### P INR #### [facility] ([id number]) [address] [place] [address] Potassium [Moles/Vol] 3.7 mmol/L Normal 3.5-5.0 [facility] Comment on above: Performed By: #### P INR #### [facility] ([id number]) [address] [place] [address] SAMPLE SITE KECIA Normal [facility] Comment on above: Performed By: #### P INR #### [facility] ([id number]) [address], [facility] [address] [place] [address] SAMPLE TYPE Arterial Normal [facility] Comment on above: Performed By: #### P INR #### [facility] ([id number]) [address] [facility] [address] [place] [address] Sodium [Moles/Vol] 139 mmol/L Normal 134-146 [facility] Comment on above: Performed By: #### P INR #### [facility] ([id number]) [address], [facility] [address] [place] [address] aPTT Coag (PPP) [Time]on aPTT Coag (Bld) [Time] 30 s Normal 26-37 [facility] Comment on above: Performed By: #### P INR #### [facility] ([id number]) [address] [facility] [address] [place] [address] Glucose Glucometer (BldC) [M ass/Vol]on 11-07-2023 Glucose [Mass/Vol] 150 mg/dL High 65-99 [facility] Glucose [Mass/Vol] 58 mg/dL Low 65-99 [facility] POC [id number] 11-07-2023 Chloride [Moles/Vol] 98 mmol/L Normal 98-109 [facility] Comment on above: Performed By: #### I ELGBC #### [facility] ([id number]) [address] [place] [address] CO2 [Moles/Vol] 31 mmol/L Normal 22-32 [facility] Comment on above: Performed By: #### I ELGBC #### [facility] ([id number]) [address] [place] [address] Creatinine [Mass/Vol] 1.9 mg/dL High 0.7-1.2 [facility] Comment on above: Result Comment: METH OD TRACEABLE TO IDMS STANDARD Performed By: #### I [facility] #### [facility] ([id number]) [address] [place] [address] GFR/1.73 sq M.predicted among non-blacks MDRD (S/P/Bld) [Vol rate/Area] 40 mL/min/{1.73_m2} Low >59 [facility] Comment on above: Result Comment: Reported eGFR is based on the CKD-EPI 2020 equation that does not use a race coefficient. Performed By: #### I [facility] #### [facility] ([id number]) [address] [place] [address] Glucose [Mass/Vol] 72 mg/dL Normal 65-99 [facility] Comment on above: Performed By: #### I [facility] #### [facility] ([id number]) [address] [place] [address] Potassium [Moles/Vol] 3.6 mmol/L Normal 3.5-5.0 [facility] Comment on above: Performed By: #### I [facility] #### [facility] ([id number]) [address] [place] [address] Sodium [Moles/Vol] 139 mmol/L Normal 134-146 [facility] Comment on above: Performed By: #### I [facility] #### [facility] ([id number]) [address] [place] [address] Urea nitrogen [Mass/Vol] 31 mg/dL High 6-23 [facility] Comment on above: Performed By: #### I [facility] #### [facility] ([id number]) [address] [place] [address] PROTIME AND INRon 11-07-2023 INR Coag (PPP) [Relative time] 1.3 {INR} High 0.8-1.1 [facility] Comment on above: Performed By: #### P INR #### [facility] ([id number]) [address] [place] [address] PT Coag (PPP) [Time] 14.5 s High 9.8-13.2 [facility] Comment on above: Performed By: #### P INR #### [facility] ([id number]) [address] [place] [address] ECG 12 Leadon 10-24-2023 [facility] Work Phone: Consent for Treatmenton 10-04 Consent for Treatment [id number]#1.00TIFF Normal [facility] Heart and Vascular Office/Cl inic Noteon 10-23-2023 [...] 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 Normal [facility] Comment on above: Result Comment: Elec tronically [...] MD Transcribed by: HASEEB Technologist: TARAN [place] [facility] CHEMISTRYOrdered By: SYSTEM SYSTEM on 10-19-2023 Creatinine [...] 370 Contrast amount in ml's: 150 Normal [facility] Consent for Treatmenton 10-03 Consent for Treatment [id number]#1.00TIFF Normal [facility] Creatinineon 10-19-2023 Creatinine [Mass/Vol] 1.6 mg/dL High 0.5-1.3 [facility] Comment on above: Performed By: #### 2 [id number] #### [facility] [place] Laboratory [address] [place] [address] Physician Orderon 10-19-2023 Physician Order [id number]#1.00TIFF Normal [facility] [place] eGFRon 10-19-2023 eGFR 50 mL/min/1.73 m2 Low >=59 [facility] [place] Comment on above: Order Comment: Order added by Discern Expert. Performed By: #### 1 [id number] #### [facility] [place] [facility] [address] [place] [address] Outside Progress Noteon 10-03 Outside Progress Note [id number]#1.00TIFF Normal [facility] [place] Physician Orderon 10-18-2023 Physician Order [id number]#1.00TIF F Normal [facility] [place] Physician Order [id number]#1.00TIFF Normal Select [facility] [place] Basophils Auto (Bld) [#/Vol] on 10-06-2023 Basophils (Bld) [#/Vol] 0.0 10 3/uL 0.0-0.1 [facility] Basophils/100 WBC Auto (Bld) on 10-06-2023 Basophils/100 WBC (Bld) 0.3 % 0.2-2.0 [facility] Eosinophils/100 WBC Auto (Bl d)on 10-06-2023 Eosinophils/100 WBC (Bld) 1.9 % 0.9-7.0 [facility] Erythrocyte distribution wid th Auto (RBC) [Ratio]on 10-06-2023 Erythrocyte distribution width (RBC) [Ratio] 19.9 % 11.0-15.0 [facility] Estimated glomerular filtrat ion rate (GFR) non- Americanon 10-06-2023 GFR/1.73 sq M.predicted among non-blacks MDRD (S/P/Bld) [Vol rate/Area] 42 mL/min/{1.73_m2} >=60 [facility] Globulin Calc (S) [Mass/Vol] on 10-06-2023 Globulin (S) [Mass/Vol] 4.3 g/dL [facility] Hematocrit Auto (Bld) [Volum e fraction]on 10-06-2023 Hematocrit (Bld) [Volume fraction] 28.3 % 42.0-54.0 [facility] Hemoglobin [Mass/volume] in Bloodon 10-06-2023 Hemoglobin (Bld) [Mass/Vol] 8.4 g/dL 14.0-18.0 [facility] Laboratory - Chemistry and C hemistry - challengeon 10-06-2023 Albumin [Mass/Vol] 2.1 g/dL 3.4-5.0 [facility] ALP [Catalytic activity/Vol] 133 U/L 46-116 [facility] ALT [Catalytic activity/Vol] 18 U/L 16-63 [facility] AST [Catalytic activity/Vol] 20 U/L 15-37 [facility] Bilirubin [Mass/Vol] 0.3 mg/dL 0.2-1.0 [facility] Calcium [Mass/Vol] 9.4 mg/dL 8.5-10.1 [facility] Chloride [Moles/Vol] 103 mmol/L 98-107 [facility] CO2 [Moles/Vol] 23.7 mmol/L 21.0-32.0 [facility] Creatinine [Mass/Vol] 1.67 mg/dL 0.70-1.30 [facility] GFR/1.73 sq M.predicted MDRD (S/P/Bld) [Vol rate/Area] 52 mL/min/{1.73_m2} >=60 [facility] Glucose [Mass/Vol] 91 mg/dL 74-106 [facility] Magnesium [Mass/Vol] 1.6 mg/dL 1.8-2.4 [facility] Potassium [Moles/Vol] 4.8 mmol/L 3.5-5.1 [facility] Protein [Mass/Vol] 6.4 g/dL 6.4-8.2 [facility] Sodium [Moles/Vol] 136 mmol/L 136-145 [facility] Urea nitrogen [Mass/Vol] 29.0 mg/dL 7.0-18.0 [facility] Urea nitrogen/Creatinine [Mass ratio] 17.4 mg/mg [facility] Laboratory - Hematology and Cell countson 10-06-2023 ESR (Bld) [Velocity] mm/h <=20 [facility] Immature granulocytes/100 WBC (Bld) 1.5 % 0.0-0.5 [facility] Leukocytes [#/volume] correc jorge for nucleated erythrocytes in Blood by Automated counon 10-06-2023 WBC corrected for nucl RBC Auto (Bld) [#/Vol] 11.6 10 3/uL 4.0-11.0 [facility] Lymphocytes Auto (Bld) [#/Vo l]on 10-06-2023 Lymphocytes (Bld) [#/Vol] 1.5 10 3/uL 1.2-3.8 [facility] Lymphocytes/100 WBC Auto (Bl d)on 10-06-2023 Lymphocytes/100 WBC (Bld) 12.9 % 20.5-60.0 [facility] MCH Auto (RBC) [Entitic mass ]on 10-06-2023 MCH (RBC) [Entitic mass] 22.5 pg 25.9-34.0 [facility] MCHC Auto (RBC) [Mass/Vol]on 10-06-2023 MCHC (RBC) [Mass/Vol] 29.7 g/dL 29.9-35.2 [facility] MCV Auto (RBC) [Entitic vol] on 10-06-2023 MCV (RBC) [Entitic vol] 75.9 fL 80.0-94.0 [facility] Monocytes Auto (Bld) [#/Vol] on 10-06-2023 Monocytes (Bld) [#/Vol] 1.3 10 3/uL 0.3-0.8 [facility] Monocytes/100 WBC Auto (Bld) on 10-06-2023 Monocytes/100 WBC (Bld) 10.9 % 1.7-12.0 [facility] Neutrophils Auto (Bld) [#/Vo l]on 10-06-2023 Neutrophils (Bld) [#/Vol] 8.4 10 3/uL 1.4-6.5 [facility] Neutrophils/100 WBC Auto (Bl d)on 10-06-2023 Neutrophils/100 WBC (Bld) 72.5 % 43.0-75.0 [facility] No Panel Informationon 10-05 Eosinophils # (Auto) 0.2 10 3/uL 0.0-0.7 [facility] Immature Granulocyte # (Auto) 0.17 10 3/uL 0.00-0.03 [facility] Platelet mean volume Auto (B ld) [Entitic vol]on 10-06-2023 Platelet mean volume (Bld) [Entitic vol] 10.3 fL 9.5-13.5 [facility] Platelets Auto (Bld) [#/Vol] on 10-06-2023 Platelets (Bld) [#/Vol] 233 10 3/uL 150-450 [facility] RBC Auto (Bld) [#/Vol]on RBC (Bld) [#/Vol] 3.73 10 6/uL 4.70-6.10 [facility] Serum or plasma albumin/glob ulin mass ratioon 10-06-2023 Albumin/Globulin [Mass ratio] 0.5 {ratio} [facility] Serum or plasma anion gap de terminationon 10-06-2023 Anion gap [Moles/Vol] 14.1 mmol[facility] Basophils Auto (Bld) [#/Vol] on 10-05-2023 Basophils (Bld) [#/Vol] 0.1 10 3/uL 0.0-0.1 [facility] Basophils/100 WBC Auto (Bld) on 10-05-2023 Basophils/100 WBC (Bld) 0.6 % 0.2-2.0 [facility] Eosinophils/100 WBC Auto (Bl d)on 10-05-2023 Eosinophils/100 WBC (Bld) 3.3 % 0.9-7.0 [facility] Erythrocyte distribution wid th Auto (RBC) [Ratio]on 10-05-2023 Erythrocyte distribution width (RBC) [Ratio] 19.6 % 11.0-15.0 [facility] Estimated glomerular filtrat ion rate (GFR) non- Americanon 10-05-2023 GFR/1.73 sq M.predicted among non-blacks MDRD (S/P/Bld) [Vol rate/Area] 41 mL/min/{1.73_m2} >=60 [facility] Globulin Calc (S) [Mass/Vol] on 10-05-2023 Globulin (S) [Mass/Vol] 4.7 g/dL [facility] Hematocrit Auto (Bld) [Volum e fraction]on 10-05-2023 Hematocrit (Bld) [Volume fraction] 29.9 % 42.0-54.0 [facility] Hemoglobin [Mass/volume] in Bloodon 10-05-2023 Hemoglobin (Bld) [Mass/Vol] 9.0 g/dL 14.0-18.0 [facility] Guy 10-05-2023 L Specimen: [id number] Received: 10/06/23 Status: COLTON Req Num: [id number] Spec Type: Surgical Subm Dr: Paula Elias DPM, [place] Tissues: A DIGIT AMPUTATION (RT 2,3,4 AND 5 METATARSAL AM) Procedures: HE/6, Gross/Micro L4, Decalcification Age/ Patient Sex Location Account Attending Physician Solomon Feldman SR 58/M LABELL [id number] Paula Elias DPM, MS SPEC NUM: [id number] RECD: 10/06/23 STATUS: COLTON REQ NUM: [id number] SHAKIRA: 10/05/[address]: Paula Elias DPM, [...] specimen demonstrates firm, yellow spongy bone matrix. Online Editor sections are submitted as follows: A1: Skin and soft tissue margins A2: Second digit, bone margin; #1 proximal phalangeal margin (following decal) A3: Third digit, bone margin; #2 proximal phalangeal margin (following decal) A4: Fourth digit, bone margin; #3 proximal phalangeal margin (following decal) A5: Fifth digit, bone margin; #4 proximal phalangeal margin (following decal) Specimen: [id number] Received: 10/06/23 Status: COLTON Nath Num: [id number] Spec Type: Surgical Subm Dr: Paula Elias,[place], [place] Tissues: A DIGIT AMPUTATION (RT 2,3,4 AND 5 METATARSAL AM) Procedures: HE/6, Gross/Micro L4, Decalcification Patient: Solomon Feldman SR [id number] (Continued) Specimen: [id number] Received: 10/06/23 (Continued) Gross Description (Continued) Signed (signature on file) Pdamini Linn MD 10/10/23 1542 Specimen: [id number] Received: 10/06/23 Status: COLTON Nath Num: [id number] Spec Type: Surgical Subm Dr: Paula Elias,[place], [place] Tissues: A DIGIT AMPUTATION (RT 2,3,4 AND 5 METATARSAL AM) Procedures: /6, Gross/Micro L4, Decalcification Patient: FeldmanSolomon SR [id number] (Continued) Specimen: [id number] Received: 10/06/23 (Continued) Gross Description (Continued) A6: Full-thickness section to include skin, underlying soft tissue and bone (following decal) Clinical history: None given CPT Codes 93520 FOREFOOT AND DIGITS Specimen: [id number] Received: 10/06/23 Status: COLTON Nath Num: [id number] Spec Type: Surgical Subm Dr: Paula Elias,[place], [place] Tissues: A DIGIT AMPUTATION (RT 2,3,4 AND 5 METATARSAL AM) Procedures: HE/Ramirez, Gross/Micro L4, Decalcification Patient: Solomon Feldman SR [id number] (Continued) Signed (signature on file) Padmini Linn MD 10/10/23 1542 Normal [facility] Laboratory - Chemistry and C hemistry - challengeon 10-05-2023 Albumin [Mass/Vol] 2.2 g/dL 3.4-5.0 [facility] ALP [Catalytic activity/Vol] 140 U/L 46-116 [facility] ALT [Catalytic activity/Vol] 18 U/L 16-63 [facility] AST [Catalytic activity/Vol] 22 U/L 15-37 [facility] Bilirubin [Mass/Vol] 0.5 mg/dL 0.2-1.0 [facility] Calcium [Mass/Vol] 9.2 mg/dL 8.5-10.1 [facility] Chloride [Moles/Vol] 100 mmol/L 98-107 [facility] CO2 [Moles/Vol] 22.6 mmol/L 21.0-32.0 [facility] Creatinine [Mass/Vol] 1.74 mg/dL 0.70-1.30 [facility] GFR/1.73 sq M.predicted MDRD (S/P/Bld) [Vol rate/Area] 49 mL/min/{1.73_m2} >=60 [facility] Glucose [Mass/Vol] 162 mg/dL 74-106 [facility] Magnesium [Mass/Vol] 1.7 mg/dL 1.8-2.4 [facility] Potassium [Moles/Vol] 5.3 mmol/L 3.5-5.1 [facility] Protein [Mass/Vol] 6.9 g/dL 6.4-8.2 [facility] Sodium [Moles/Vol] 133 mmol/L 136-145 [facility] Urea nitrogen [Mass/Vol] 30.0 mg/dL 7.0-18.0 [facility] Urea nitrogen/Creatinine [Mass ratio] 17.2 mg/mg [facility] Laboratory - Hematology and Cell countson 10-05-2023 ESR (Bld) [Velocity] 130 mm/h <=20 [facility] Immature granulocytes/100 WBC (Bld) 1.3 % 0.0-0.5 [facility] Leukocytes [#/volume] correc jorge for nucleated erythrocytes in Blood by Automated counon 10-05-2023 WBC corrected for nucl RBC Auto (Bld) [#/Vol] 12.6 10 3/uL 4.0-11.0 [facility] Lymphocytes Auto (Bld) [#/Vo l]on 10-05-2023 Lymphocytes (Bld) [#/Vol] 1.3 10 3/uL 1.2-3.8 [facility] Lymphocytes/100 WBC Auto (Bl d)on 10-05-2023 Lymphocytes/100 WBC (Bld) 10.1 % 20.5-60.0 [facility] MCH Auto (RBC) [Entitic mass ]on 10-05-2023 MCH (RBC) [Entitic mass] 22.7 pg 25.9-34.0 [facility] MCHC Auto (RBC) [Mass/Vol]on 10-05-2023 MCHC (RBC) [Mass/Vol] 30.1 g/dL 29.9-35.2 [facility] MCV Auto (RBC) [Entitic vol] on 10-05-2023 MCV (RBC) [Entitic vol] 75.3 fL 80.0-94.0 [facility] Monocytes Auto (Bld) [#/Vol] on 10-05-2023 Monocytes (Bld) [#/Vol] 1.4 10 3/uL 0.3-0.8 [facility] Monocytes/100 WBC Auto (Bld) on 10-05-2023 Monocytes/100 WBC (Bld) 10.9 % 1.7-12.0 [facility] Neutrophils Auto (Bld) [#/Vo l]on 10-05-2023 Neutrophils (Bld) [#/Vol] 9.3 10 3/uL 1.4-6.5 [facility] Neutrophils/100 WBC Auto (Bl d)on 10-05-2023 Neutrophils/100 WBC (Bld) 73.8 % 43.0-75.0 [facility] No Panel Informationon 10-04 Eosinophils # (Auto) 0.4 10 3/uL 0.0-0.7 [facility] Immature Granulocyte # (Auto) 0.16 10 3/uL 0.00-0.03 [facility] Platelet mean volume Auto (B ld) [Entitic vol]on 10-05-2023 Platelet mean volume (Bld) [Entitic vol] 11.3 fL 9.5-13.5 [facility] Platelets Auto (Bld) [#/Vol] on 10-05-2023 Platelets (Bld) [#/Vol] 203 10 3/uL 150-450 [facility] RBC Auto (Bld) [#/Vol]on RBC (Bld) [#/Vol] 3.97 10 6/uL 4.70-6.10 [facility] Serum or plasma albumin/glob ulin mass ratioon 10-05-2023 Albumin/Globulin [Mass ratio] 0.5 {ratio} [facility] Serum or plasma anion gap de terminationon 10-05-2023 Anion gap [Moles/Vol] 15.7 [facility] Basophils Auto (Bld) [#/Vol] on 10-04-2023 Basophils (Bld) [#/Vol] 0.1 10 3/uL 0.0-0.1 [facility] Basophils/100 WBC Auto (Bld) on 10-04-2023 Basophils/100 WBC (Bld) 0.5 % 0.2-2.0 [facility] Eosinophils/100 WBC Auto (Bl d)on 10-04-2023 Eosinophils/100 WBC (Bld) 3.6 % 0.9-7.0 [facility] Erythrocyte distribution wid th Auto (RBC) [Ratio]on 10-04-2023 Erythrocyte distribution width (RBC) [Ratio] 19.6 % 11.0-15.0 [facility] Estimated glomerular filtrat ion rate (GFR) non- Americanon 10-04-2023 GFR/1.73 sq M.predicted among non-blacks MDRD (S/P/Bld) [Vol rate/Area] 44 mL/min/{1.73_m2} >=60 [facility] Globulin Calc (S) [Mass/Vol] on 10-04-2023 Globulin (S) [Mass/Vol] 4.3 g/dL [facility] Hematocrit Auto (Bld) [Volum e fraction]on 10-04-2023 Hematocrit (Bld) [Volume fraction] 26.8 % 42.0-54.0 [facility] Hemoglobin [Mass/volume] in Bloodon 10-04-2023 Hemoglobin (Bld) [Mass/Vol] 7.9 g/dL 14.0-18.0 [facility] Laboratory - Chemistry and C hemistry - challengeon 10-04-2023 Albumin [Mass/Vol] 1.9 g/dL 3.4-5.0 [facility] ALP [Catalytic activity/Vol] 135 U/L 46-116 [facility] ALT [Catalytic activity/Vol] 16 U/L 16-63 [facility] AST [Catalytic activity/Vol] 19 U/L 15-37 [facility] Bilirubin [Mass/Vol] 0.4 mg/dL 0.2-1.0 [facility] Calcium [Mass/Vol] 7.8 mg/dL 8.5-10.1 [facility] Chloride [Moles/Vol] 102 mmol/L 98-107 [facility] CO2 [Moles/Vol] 25.0 mmol/L 21.0-32.0 [facility] Creatinine [Mass/Vol] 1.61 mg/dL 0.70-1.30 [facility] GFR/1.73 sq M.predicted MDRD (S/P/Bld) [Vol rate/Area] 54 mL/min/{1.73_m2} >=60 [facility] Glucose [Mass/Vol] 136 mg/dL 74-106 [facility] Magnesium [Mass/Vol] 1.7 mg/dL 1.8-2.4 [facility] Potassium [Moles/Vol] 5.1 mmol/L 3.5-5.1 [facility] Protein [Mass/Vol] 6.2 g/dL 6.4-8.2 [facility] Sodium [Moles/Vol] 134 mmol/L 136-145 [facility] Urea nitrogen [Mass/Vol] 25.0 mg/dL 7.0-18.0 [facility] Urea nitrogen/Creatinine [Mass ratio] 15.5 mg/mg [facility] Laboratory - Hematology and Cell countson 10-04-2023 ESR (Bld) [Velocity] 117 mm/h <=20 [facility] Immature granulocytes/100 WBC (Bld) 0.9 % 0.0-0.5 [facility] Leukocytes [#/volume] correc jorge for nucleated erythrocytes in Blood by Automated counon 10-04-2023 WBC corrected for nucl RBC Auto (Bld) [#/Vol] 11.5 10 3/uL 4.0-11.0 [facility] Lymphocytes Auto (Bld) [#/Vo l]on 10-04-2023 Lymphocytes (Bld) [#/Vol] 1.3 10 3/uL 1.2-3.8 [facility] Lymphocytes/100 WBC Auto (Bl d)on 10-04-2023 Lymphocytes/100 WBC (Bld) 10.9 % 20.5-60.0 [facility] MCH Auto (RBC) [Entitic mass ]on 10-04-2023 MCH (RBC) [Entitic mass] 22.4 pg 25.9-34.0 [facility] MCHC Auto (RBC) [Mass/Vol]on 10-04-2023 MCHC (RBC) [Mass/Vol] 29.5 g/dL 29.9-35.2 [facility] MCV Auto (RBC) [Entitic vol] on 10-04-2023 MCV (RBC) [Entitic vol] 75.9 fL 80.0-94.0 [facility] Monocytes Auto (Bld) [#/Vol] on 10-04-2023 Monocytes (Bld) [#/Vol] 1.4 10 3/uL 0.3-0.8 [facility] Monocytes/100 WBC Auto (Bld) on 10-04-2023 Monocytes/100 WBC (Bld) 12.4 % 1.7-12.0 [facility] Neutrophils Auto (Bld) [#/Vo l]on 10-04-2023 Neutrophils (Bld) [#/Vol] 8.3 10 3/uL 1.4-6.5 [facility] Neutrophils/100 WBC Auto (Bl d)on 10-04-2023 Neutrophils/100 WBC (Bld) 71.7 % 43.0-75.0 [facility] No Panel Informationon 10-03 Eosinophils # (Auto) 0.4 10 3/uL 0.0-0.7 [facility] Immature Granulocyte # (Auto) 0.10 10 3/uL 0.00-0.03 [facility] Platelet mean volume Auto (B ld) [Entitic vol]on 10-04-2023 Platelet mean volume (Bld) [Entitic vol] 11.5 fL 9.5-13.5 [facility] Platelets Auto (Bld) [#/Vol] on 10-04-2023 Platelets (Bld) [#/Vol] 154 10 3/uL 150-450 [facility] RBC Auto (Bld) [#/Vol]on RBC (Bld) [#/Vol] 3.53 10 6/uL 4.70-6.10 [facility] Serum or plasma albumin/glob ulin mass ratioon 10-04-2023 Albumin/Globulin [Mass ratio] 0.4 {ratio} [facility] Serum or plasma anion gap de terminationon 10-04-2023 Anion gap [Moles/Vol] 12.1 mmol/L [facility] Basophils Auto (Bld) [#/Vol] on 10-03-2023 Basophils (Bld) [#/Vol] 0.1 10 3/uL 0.0-0.1 [facility] Basophils/100 WBC Auto (Bld) on 10-03-2023 Basophils/100 WBC (Bld) 0.7 % 0.2-2.0 [facility] Eosinophils/100 WBC Auto (Bl d)on 10-03-2023 Eosinophils/100 WBC (Bld) 2.7 % 0.9-7.0 [facility] Erythrocyte distribution wid th Auto (RBC) [Ratio]on 10-03-2023 Erythrocyte distribution width (RBC) [Ratio] 19.2 % 11.0-15.0 [facility] Estimated glomerular filtrat ion rate (GFR) non- Americanon 10-03-2023 GFR/1.73 sq M.predicted among non-blacks MDRD (S/P/Bld) [Vol rate/Area] 46 mL/min/{1.73_m2} >=60 [facility] Globulin Calc (S) [Mass/Vol] on 10-03-2023 Globulin (S) [Mass/Vol] 4.1 g/dL [facility] Hematocrit Auto (Bld) [Volum e fraction]on 10-03-2023 Hematocrit (Bld) [Volume fraction] 26.4 % 42.0-54.0 [facility] Hemoglobin [Mass/volume] in Bloodon 10-03-2023 Hemoglobin (Bld) [Mass/Vol] 8.1 g/dL 14.0-18.0 [facility] Laboratory - Chemistry and C hemistry - challengeon 10-03-2023 Albumin [Mass/Vol] 1.9 g/dL 3.4-5.0 [facility] ALP [Catalytic activity/Vol] 140 U/L 46-116 [facility] ALT [Catalytic activity/Vol] 17 U/L 16-63 [facility] AST [Catalytic activity/Vol] 21 U/L 15-37 [facility] Bilirubin [Mass/Vol] 0.3 mg/dL 0.2-1.0 [facility] Calcium [Mass/Vol] 6.7 mg/dL 8.5-10.1 [facility] Chloride [Moles/Vol] 101 mmol/L 98-107 [facility] CO2 [Moles/Vol] 23.9 mmol/L 21.0-32.0 [facility] Creatinine [Mass/Vol] 1.57 mg/dL 0.70-1.30 [facility] GFR/1.73 sq M.predicted MDRD (S/P/Bld) [Vol rate/Area] 55 mL/min/{1.73_m2} >=60 [facility] Glucose [Mass/Vol] 142 mg/dL 74-106 [facility] Magnesium [Mass/Vol] 1.3 mg/dL 1.8-2.4 [facility] Potassium [Moles/Vol] 4.8 mmol/L 3.5-5.1 [facility] Protein [Mass/Vol] 6.0 g/dL 6.4-8.2 [facility] Sodium [Moles/Vol] 134 mmol/L 136-145 [facility] Urea nitrogen [Mass/Vol] 23.0 mg/dL 7.0-18.0 [facility] Urea nitrogen/Creatinine [Mass ratio] 14.6 mg/mg [facility] Laboratory - Hematology and Cell countson 10-03-2023 ESR (Bld) [Velocity] mm/h <=20 [facility] Immature granulocytes/100 WBC (Bld) 1.0 % 0.0-0.5 [facility] Leukocytes [#/volume] correc jorge for nucleated erythrocytes in Blood by Automated counon 10-03-2023 WBC corrected for nucl RBC Auto (Bld) [#/Vol] 11.6 10 3/uL 4.0-11.0 [facility] Lymphocytes Auto (Bld) [#/Vo l]on 10-03-2023 Lymphocytes (Bld) [#/Vol] 1.4 10 3/uL 1.2-3.8 [facility] Lymphocytes/100 WBC Auto (Bl d)on 10-03-2023 Lymphocytes/100 WBC (Bld) 12.1 % 20.5-60.0 [facility] MCH Auto (RBC) [Entitic mass ]on 10-03-2023 MCH (RBC) [Entitic mass] 23.2 pg 25.9-34.0 [facility] MCHC Auto (RBC) [Mass/Vol]on 10-03-2023 MCHC (RBC) [Mass/Vol] 30.7 g/dL 29.9-35.2 [facility] MCV Auto (RBC) [Entitic vol] on 10-03-2023 MCV (RBC) [Entitic vol] 75.6 fL 80.0-94.0 [facility] Monocytes Auto (Bld) [#/Vol] on 10-03-2023 Monocytes (Bld) [#/Vol] 1.3 10 3/uL 0.3-0.8 [facility] Monocytes/100 WBC Auto (Bld) on 10-03-2023 Monocytes/100 WBC (Bld) 10.8 % 1.7-12.0 [facility] Neutrophils Auto (Bld) [#/Vo l]on 10-03-2023 Neutrophils (Bld) [#/Vol] 8.5 10 3/uL 1.4-6.5 [facility] Neutrophils/100 WBC Auto (Bl d)on 10-03-2023 Neutrophils/100 WBC (Bld) 72.7 % 43.0-75.0 [facility] No Panel Informationon 10-02 Eosinophils # (Auto) 0.3 10 3/uL 0.0-0.7 [facility] Immature Granulocyte # (Auto) 0.12 10 3/uL 0.00-0.03 [facility] Platelet mean volume Auto (B ld) [Entitic vol]on 10-03-2023 Platelet mean volume (Bld) [Entitic vol] 11.3 fL 9.5-13.5 [facility] Platelets Auto (Bld) [#/Vol] on 10-03-2023 Platelets (Bld) [#/Vol] 141 10 3/uL 150-450 [facility] RBC Auto (Bld) [#/Vol]on RBC (Bld) [#/Vol] 3.49 10 6/uL 4.70-6.10 [facility] Serum or plasma albumin/glob ulin mass ratioon 10-03-2023 Albumin/Globulin [Mass ratio] 0.5 {ratio} [facility] Serum or plasma anion gap de terminationon 10-03-2023 Anion gap [Moles/Vol] 13.9 mmol/L [facility] Basophils Auto (Bld) [#/Vol] on 10-02-2023 Basophils (Bld) [#/Vol] 0.0 10 3/uL 0.0-0.1 [facility] Basophils/100 WBC Auto (Bld) on 10-02-2023 Basophils/100 WBC (Bld) 0.4 % 0.2-2.0 [facility] Eosinophils/100 WBC Auto (Bl d)on 10-02-2023 Eosinophils/100 WBC (Bld) 2.2 % 0.9-7.0 [facility] Erythrocyte distribution wid th Auto (RBC) [Ratio]on 10-02-2023 Erythrocyte distribution width (RBC) [Ratio] 19.3 % 11.0-15.0 [facility] Estimated glomerular filtrat ion rate (GFR) non- Americanon 10-02-2023 GFR/1.73 sq M.predicted among non-blacks MDRD (S/P/Bld) [Vol rate/Area] 41 mL/min/{1.73_m2} >=60 [facility] Globulin Calc (S) [Mass/Vol] on 10-02-2023 Globulin (S) [Mass/Vol] 4.2 g/dL [facility] Hematocrit Auto (Bld) [Volum e fraction]on 10-02-2023 Hematocrit (Bld) [Volume fraction] 26.1 % 42.0-54.0 [facility] Hemoglobin [Mass/volume] in Bloodon 10-02-2023 Hemoglobin (Bld) [Mass/Vol] 7.8 g/dL 14.0-18.0 [facility] Guy 10-02-2023 L Specimen: [id number] Received: 10/03/23 Status: COLTON Nath Num: [id number] Spec Type: Surgical Subm Dr: Paula Elias DPM, MS Tissues: A DIGIT AMPUTATION (FIRST METATARSAL RT FOOT) Procedures: HE/2, Gross/Micro L4, Decalcification Age/ Patient Sex Location Account Attending Physician Solomon Feldman SR 58/M LABELL [id number] Paula Elias DPM, MS SPEC NUM: [id number] RECD: 10/03/23 STATUS: COLTON YAP NUM: [id number] SHAKIRA: 10/02/[address]: Paula Elias DPM, MS ENTERED: 10/03/[address] [facility] [address]: Jericho Carey SPEC TYPE: Surgical DEPT: [...] firm yellow- pink spongy bone matrix. A patient admitting representative longitudinal section is bisected and submitted following decalcification in cassettes A1?A2. Clinical history: Right diabetic foot infection CPT Codes 77226 Specimen: [id number] Received: 10/03/23 Status: COLTON Nath Num: [id number] Spec Type: Surgical Subm Dr: Paula Elias,LINDSEY, [place] Tissues: A DIGIT AMPUTATION (FIRST METATARSAL RT FOOT) Procedures: HE/Karli, Gross/Micro L4, Decalcification Patient: Solomon Feldman SR [id number] (Continued) Signed (signature on file) Padmini Lnin MD 10/05/23 1426 Normal [facility] Laboratory - Chemistry and C hemistry - challengeon 10-02-2023 Albumin [Mass/Vol] 2.1 g/dL 3.4-5.0 [facility] ALP [Catalytic activity/Vol] 131 U/L 46-116 [facility] ALT [Catalytic activity/Vol] 17 U/L 16-63 [facility] AST [Catalytic activity/Vol] 13 U/L 15-37 [facility] Bilirubin [Mass/Vol] 0.3 mg/dL 0.2-1.0 [facility] Calcium [Mass/Vol] 6.6 mg/dL 8.5-10.1 [facility] Chloride [Moles/Vol] 105 mmol/L 98-107 [facility] CO2 [Moles/Vol] 24.3 mmol/L 21.0-32.0 [facility] Creatinine [Mass/Vol] 1.72 mg/dL 0.70-1.30 [facility] GFR/1.73 sq M.predicted MDRD (S/P/Bld) [Vol rate/Area] 50 mL/min/{1.73_m2} >=60 [facility] Glucose [Mass/Vol] 156 mg/dL 74-106 [facility] Magnesium [Mass/Vol] 1.5 mg/dL 1.8-2.4 [facility] Potassium [Moles/Vol] 4.0 mmol/L 3.5-5.1 [facility] Protein [Mass/Vol] 6.3 g/dL 6.4-8.2 [facility] Sodium [Moles/Vol] 139 mmol/L 136-145 [facility] Urea nitrogen [Mass/Vol] 27.0 mg/dL 7.0-18.0 [facility] Urea nitrogen/Creatinine [Mass ratio] 15.7 mg/mg [facility] Laboratory - Hematology and Cell countson 10-02-2023 Immature granulocytes/100 WBC (Bld) 0.4 % 0.0-0.5 [facility] ESR (Bld) [Velocity] 110 mm/h <=20 [facility] Laboratory - Microbiology an d Antimicrobial susceptibilityOrdered By: Truman Bryant on 10-02-2023 Microscopic observation Gram stain Nom (Unsp spec) [facility] Leukocytes [#/volume] correc jorge for nucleated erythrocytes in Blood by Automated counon 10-02-2023 WBC corrected for nucl RBC Auto (Bld) [#/Vol] 8.5 10 3/uL 4.0-11.0 [facility] Lymphocytes Auto (Bld) [#/Vo l]on 10-02-2023 Lymphocytes (Bld) [#/Vol] 1.5 10 3/uL 1.2-3.8 [facility] Lymphocytes/100 WBC Auto (Bl d)on 10-02-2023 Lymphocytes/100 WBC (Bld) 17.3 % 20.5-60.0 [facility] MCH Auto (RBC) [Entitic mass ]on 10-02-2023 MCH (RBC) [Entitic mass] 22.5 pg 25.9-34.0 [facility] MCHC Auto (RBC) [Mass/Vol]on 10-02-2023 MCHC (RBC) [Mass/Vol] 29.9 g/dL 29.9-35.2 [facility] MCV Auto (RBC) [Entitic vol] on 10-02-2023 MCV (RBC) [Entitic vol] 75.2 fL 80.0-94.0 [facility] Monocytes Auto (Bld) [#/Vol] on 10-02-2023 Monocytes (Bld) [#/Vol] 0.8 10 3/uL 0.3-0.8 [facility] Monocytes/100 WBC Auto (Bld) on 10-02-2023 Monocytes/100 WBC (Bld) 9.1 % 1.7-12.0 [facility] Neutrophils Auto (Bld) [#/Vo l]on 10-02-2023 Neutrophils (Bld) [#/Vol] 6.0 10 3/uL 1.4-6.5 [facility] Neutrophils/100 WBC Auto (Bl d)on 10-02-2023 Neutrophils/100 WBC (Bld) 70.6 % 43.0-75.0 [facility] No Panel Informationon 10-01 Eosinophils # (Auto) 0.2 10 3/uL 0.0-0.7 [facility] Immature Granulocyte # (Auto) 0.03 10 3/uL 0.00-0.03 [facility] Fungal Smear Result [facility] Miscellaneous Test Comment See comment [facility] Comment on above: Specimen Source: JONO TRT - Foot Right - Foot Rt - 604.000 No Panel InformationOrdered By: Truman Bryant on 10-02-2023 Tissue Culture [facility] No Panel InformationOrdered By: Paula Elias on 10-02-2023 Acid Fast Smear [facility] AFB Specimen Processing [facility] Platelet mean volume Auto (B ld) [Entitic vol]on 10-02-2023 Platelet mean volume (Bld) [Entitic vol] 10.6 fL 9.5-13.5 [facility] Platelets Auto (Bld) [#/Vol] on 10-02-2023 Platelets (Bld) [#/Vol] 142 10 3/uL 150-450 [facility] RBC Auto (Bld) [#/Vol]on RBC (Bld) [#/Vol] 3.47 10 6/uL 4.70-6.10 [facility] Serum or plasma albumin/glob ulin mass ratioon 10-02-2023 Albumin/Globulin [Mass ratio] 0.5 {ratio} [facility] Serum or plasma anion gap de terminationon 10-02-2023 Anion gap [Moles/Vol] 13.7 mmol[facility] Basophils Auto (Bld) [#/Vol] on 10-01-2023 Basophils (Bld) [#/Vol] 0.0 10 3/uL 0.0-0.1 [facility] Basophils/100 WBC Auto (Bld) on 10-01-2023 Basophils/100 WBC (Bld) 0.4 % 0.2-2.0 [facility] Eosinophils/100 WBC Auto (Bl d)on 10-01-2023 Eosinophils/100 WBC (Bld) 1.7 % 0.9-7.0 [facility] Erythrocyte distribution wid th Auto (RBC) [Ratio]on 10-01-2023 Erythrocyte distribution width (RBC) [Ratio] 18.5 % 11.0-15.0 [facility] Estimated glomerular filtrat ion rate (GFR) non- Americanon 10-01-2023 GFR/1.73 sq M.predicted among non-blacks MDRD (S/P/Bld) [Vol rate/Area] 27 mL/min/{1.73_m2} >=60 [facility] Globulin Calc (S) [Mass/Vol] on 10-01-2023 Globulin (S) [Mass/Vol] 4.0 g/dL [facility] Hematocrit Auto (Bld) [Volum e fraction]on 10-01-2023 Hematocrit (Bld) [Volume fraction] 26.5 % 42.0-54.0 [facility] Hemoglobin [Mass/volume] in Bloodon 10-01-2023 Hemoglobin (Bld) [Mass/Vol] 8.0 g/dL 14.0-18.0 [facility] Laboratory - Chemistry and C hemistry - challengeon 10-01-2023 Lactate [Moles/Vol] 1.8 mmol/L 0.4-2.0 [facility] Albumin [Mass/Vol] 1.9 g/dL 3.4-5.0 [facility] ALP [Catalytic activity/Vol] 113 U/L 46-116 [facility] ALT [Catalytic activity/Vol] 17 U/L 16-63 [facility] AST [Catalytic activity/Vol] 14 U/L 15-37 [facility] Bilirubin [Mass/Vol] 0.3 mg/dL 0.2-1.0 [facility] Calcium [Mass/Vol] 5.7 mg/dL 8.5-10.1 [facility] Comment on above: RESULTS CALLED TO Patricio OlguinRN)@BY SKY AndersonT at 0619 Chloride [Moles/Vol] 102 mmol/L 98-107 [facility] CO2 [Moles/Vol] 20.4 mmol/L 21.0-32.0 [facility] Creatinine [Mass/Vol] 2.46 mg/dL 0.70-1.30 [facility] GFR/1.73 sq M.predicted MDRD (S/P/Bld) [Vol rate/Area] 33 mL/min/{1.73_m2} >=60 [facility] Glucose [Mass/Vol] 67 mg/dL 74-106 [facility] Magnesium [Mass/Vol] 0.8 mg/dL 1.8-2.4 [facility] Comment on above: RESULTS CALLED TO Patricio FontaineRN)@BY [address] at 0601 Potassium [Moles/Vol] 3.1 mmol/L 3.5-5.1 [facility] Protein [Mass/Vol] 5.9 g/dL 6.4-8.2 [facility] Sodium [Moles/Vol] 138 mmol/L 136-145 [facility] Urea nitrogen [Mass/Vol] 28.0 mg/dL 7.0-18.0 [facility] Urea nitrogen/Creatinine [Mass ratio] 11.4 mg/mg [facility] Laboratory - Hematology and Cell countson 10-01-2023 ESR (Bld) [Velocity] 96 mm/h <=20 [facility] Immature granulocytes/100 WBC (Bld) 0.6 % 0.0-0.5 [facility] Leukocytes [#/volume] correc jorge for nucleated erythrocytes in Blood by Automated counon 10-01-2023 WBC corrected for nucl RBC Auto (Bld) [#/Vol] 10.0 10 3/uL 4.0-11.0 [facility] Lymphocytes Auto (Bld) [#/Vo l]on 10-01-2023 Lymphocytes (Bld) [#/Vol] 1.3 10 3/uL 1.2-3.8 [facility] Lymphocytes/100 WBC Auto (Bl d)on 10-01-2023 Lymphocytes/100 WBC (Bld) 12.8 % 20.5-60.0 [facility] MCH Auto (RBC) [Entitic mass ]on 10-01-2023 MCH (RBC) [Entitic mass] 22.4 pg 25.9-34.0 [facility] MCHC Auto (RBC) [Mass/Vol]on 10-01-2023 MCHC (RBC) [Mass/Vol] 30.2 g/dL 29.9-35.2 [facility] MCV Auto (RBC) [Entitic vol] on 10-01-2023 MCV (RBC) [Entitic vol] 74.2 fL 80.0-94.0 [facility] Monocytes Auto (Bld) [#/Vol] on 10-01-2023 Monocytes (Bld) [#/Vol] 0.7 10 3/uL 0.3-0.8 [facility] Monocytes/100 WBC Auto (Bld) on 10-01-2023 Monocytes/100 WBC (Bld) 6.9 % 1.7-12.0 [facility] Neutrophils Auto (Bld) [#/Vo l]on 10-01-2023 Neutrophils (Bld) [#/Vol] 7.8 10 3/uL 1.4-6.5 [facility] Neutrophils/100 WBC Auto (Bl d)on 10-01-2023 Neutrophils/100 WBC (Bld) 77.6 % 43.0-75.0 [facility] No Panel Informationon 09-30 C-Reactive Protein, Quantitative 10.58 mg/dL <=0.50 [facility] Eosinophils # (Auto) 0.2 10 3/uL 0.0-0.7 [facility] Immature Granulocyte # (Auto) 0.06 10 3/uL 0.00-0.03 [facility] Troponin I High Sensitivity 8.3 pg/mL 4.0-76.1 [facility] Comment on above: CUT-OFF POINTS HAVE [...] Blood Partial Pressure CO2 30.4 mm[Hg] 40.0-52.0 [facility] Venous Blood pH 7.421 7.330-7.43 0 [facility] Platelet mean volume Auto (B ld) [Entitic vol]on 10-01-2023 Platelet mean volume (Bld) [Entitic vol] 11.2 fL 9.5-13.5 [facility] Platelets Auto (Bld) [#/Vol] on 10-01-2023 Platelets (Bld) [#/Vol] 164 10 3/uL 150-450 [facility] RBC Auto (Bld) [#/Vol]on RBC (Bld) [#/Vol] 3.57 10 6/uL 4.70-6.10 [facility] Serum or plasma albumin/glob ulin mass ratioon 10-01-2023 Albumin/Globulin [Mass ratio] 0.5 {ratio} [facility] Serum or plasma anion gap de terminationon 10-01-2023 Anion gap [Moles/Vol] 18.7 mmol/L [facility] Automated epithelial cells c ount in urine sediment (number/area)on 09-30-2023 Epithelial cells Auto (Urine sed) [#/Area] NONE SEEN #/LPF NONE/RARE [facility] Automated leukocytes count i n urine sediment (number/area)on 09-30-2023 WBC Auto (Urine sed) [#/Area] NONE SEEN #/HPF 0-2 [facility] Automated urine specific gra vity by refractometryon 09-30-2023 Specific gravity Refractometry automated (U) [Rel density] <=1.005 1.005-1.02 5 [facility] Basophils Auto (Bld) [#/Vol] on 09-30-2023 Basophils (Bld) [#/Vol] 0.1 10 3/uL 0.0-0.1 [facility] Basophils/100 WBC Auto (Bld) on 09-30-2023 Basophils/100 WBC (Bld) 0.4 % 0.2-2.0 [facility] Bilirubin Auto test strip (U ) [Mass/Vol]on 09-30-2023 Bilirubin (U) [Mass/Vol] Negative NEGATIVE [facility] Casts typing in urine sedime nt by light microscopyon 09-30-2023 Casts LM Nom (Urine sed) NONE SEEN #/LPF NONE SEEN [facility] Color Auto (U)on 09-30-2023 Color (U) LT. YELLOW YELLOW [facility] Eosinophils/100 WBC Auto (Bl d)on 09-30-2023 Eosinophils/100 WBC (Bld) 1.4 % 0.9-7.0 [facility] Erythrocyte distribution wid th Auto (RBC) [Ratio]on 09-30-2023 Erythrocyte distribution width (RBC) [Ratio] 19.0 % 11.0-15.0 [facility] Estimated glomerular filtrat ion rate (GFR) non- Americanon 09-30-2023 GFR/1.73 sq M.predicted among non-blacks MDRD (S/P/Bld) [Vol rate/Area] 19 mL/min/{1.73_m2} >=60 [facility] Globulin Calc (S) [Mass/Vol] on 09-30-2023 Globulin (S) [Mass/Vol] 4.8 g/dL [facility] Hematocrit Auto (Bld) [Volum e fraction]on 09-30-2023 Hematocrit (Bld) [Volume fraction] 32.9 % 42.0-54.0 [facility] Hemoglobin [Mass/volume] in Bloodon 09-30-2023 Hemoglobin (Bld) [Mass/Vol] 10.0 g/dL 14.0-18.0 [facility] INR in Platelet poor plasma by Coagulation assayon 09-30-2023 INR Coag (PPP) [Relative time] 1.23 {INR} [facility] Comment on above: DESIRED INR:2.0-3.0 CONDITIONS NOT LISTED BELOW2.5-3.5 FOR PROSTHETIC HEART VALVE REPLACEMENT2.5-3.5 RECURRENT THROMBOSIS Ketones Auto test strip (U) [Mass/Vol]on 09-30-2023 Ketones (U) [Mass/Vol] Negative NEGATIVE [facility] - Chemistry and C hemistry - challengeon 09-30-2023 Lactate [Moles/Vol] 4.2 mmol/L 0.4-2.0 [facility] Comment on above: RESULTS CALLED TO Patricio Genao (RN)@BY [address] at 2312 Albumin [Mass/Vol] 2.4 g/dL 3.4-5.0 [facility] ALP [Catalytic activity/Vol] 145 U/L 46-116 [facility] ALT [Catalytic activity/Vol] 17 U/L 16-63 [facility] AST [Catalytic activity/Vol] 21 U/L 15-37 [facility] Bilirubin [Mass/Vol] 0.4 mg/dL 0.2-1.0 [facility] Calcium [Mass/Vol] 5.8 mg/dL 8.5-10.1 [facility] Comment on above: RESULTS CALLED TO GIOVANNA CASTANON @BY Verona Hanson at 1645 Chloride [Moles/Vol] 97 mmol/L 98-107 [facility] CO2 [Moles/Vol] 18.3 mmol/L 21.0-32.0 [facility] Creatinine [Mass/Vol] 3.43 mg/dL 0.70-1.30 [facility] GFR/1.73 sq M.predicted MDRD (S/P/Bld) [Vol rate/Area] 22 mL/min/{1.73_m2} >=60 [facility] Glucose [Mass/Vol] 208 mg/dL 74-106 [facility] Magnesium [Mass/Vol] 0.5 mg/dL 1.8-2.4 [facility] Comment on above: RESULTS CALLED TO Giovanna Castanon @BY Marybel Hawkins MLT [phone] Natriuretic peptide B (Bld) [Mass/Vol] 611.0 pg/mL <=900.0 [facility] Potassium [Moles/Vol] 3.9 mmol/L 3.5-5.1 [facility] Protein [Mass/Vol] 7.2 g/dL 6.4-8.2 [facility] Sodium [Moles/Vol] 137 mmol/L 136-145 [facility] Urea nitrogen [Mass/Vol] 34.0 mg/dL 7.0-18.0 [facility] Urea nitrogen/Creatinine [Mass ratio] 9.9 mg/mg [facility] Laboratory - Hematology and Cell countson 09-30-2023 ESR (Bld) [Velocity] 130 mm/h <=20 [facility] Immature granulocytes/100 WBC (Bld) 0.6 % 0.0-0.5 [facility] Leukocytes [#/volume] correc jorge for nucleated erythrocytes in Blood by Automated counon 09-30-2023 WBC corrected for nucl RBC Auto (Bld) [#/Vol] 13.9 10 3/uL 4.0-11.0 [facility] Lymphocytes Auto (Bld) [#/Vo l]on 09-30-2023 Lymphocytes (Bld) [#/Vol] 1.4 10 3/uL 1.2-3.8 [facility] Lymphocytes/100 WBC Auto (Bl d)on 09-30-2023 Lymphocytes/100 WBC (Bld) 10.1 % 20.5-60.0 [facility] MCH Auto (RBC) [Entitic mass ]on 09-30-2023 MCH (RBC) [Entitic mass] 22.7 pg 25.9-34.0 [facility] MCHC Auto (RBC) [Mass/Vol]on 09-30-2023 MCHC (RBC) [Mass/Vol] 30.4 g/dL 29.9-35.2 [facility] MCV Auto (RBC) [Entitic vol] on 09-30-2023 MCV (RBC) [Entitic vol] 74.6 fL 80.0-94.0 [facility] Monocytes Auto (Bld) [#/Vol] on 09-30-2023 Monocytes (Bld) [#/Vol] 0.9 10 3/uL 0.3-0.8 [facility] Monocytes/100 WBC Auto (Bld) on 09-30-2023 Monocytes/100 WBC (Bld) 6.7 % 1.7-12.0 [facility] Mucus LM Ql (Urine sed)on Mucus Ql (Urine sed) NONE SEEN NONE SEEN [facility] Neutrophils Auto (Bld) [#/Vo l]on 09-30-2023 Neutrophils (Bld) [#/Vol] 11.2 10 3/uL 1.4-6.5 [facility] Neutrophils/100 WBC Auto (Bl d)on 09-30-2023 Neutrophils/100 WBC (Bld) 80.8 % 43.0-75.0 [facility] No Panel Informationon 09-29 Troponin I High Sensitivity 7.9 pg/mL 4.0-76.1 [facility] Comment on above: CUT-OFF POINTS HAVE [...] Blood Partial Pressure CO2 29.6 mm[Hg] 40.0-52.0 [facility] Venous Blood pH 7.405 7.330-7.43 0 [facility] Urine Culture Reflexed NO [facility] C-Reactive Protein, Quantitative 14.76 mg/dL <=0.50 [facility] Eosinophils # (Auto) 0.2 10 3/uL 0.0-0.7 [facility] Immature Granulocyte # (Auto) 0.09 10 3/uL 0.00-0.03 [facility] No Panel InformationOrdered By: Chandrika Castanon on 09-30-2023 Blood Culture 2 [facility] Wound Culture [facility] Blood Culture 1 [facility] Platelet mean volume Auto (B ld) [Entitic vol]on 09-30-2023 Platelet mean volume (Bld) [Entitic vol] 10.9 fL 9.5-13.5 [facility] Platelets Auto (Bld) [#/Vol] on 09-30-2023 Platelets (Bld) [#/Vol] 227 10 3/uL 150-450 [facility] Protein Auto test strip (U) [Mass/Vol]on 09-30-2023 Protein (U) [Mass/Vol] Negative NEG/TRACE [facility] Prothrombin time (PT)on 09-04 PT Coag (PPP) [Time] 12.9 s 9.0-11.6 [facility] RBC Auto (Bld) [#/Vol]on RBC (Bld) [#/Vol] 4.41 10 6/uL 4.70-6.10 [facility] Serum or plasma albumin/glob ulin mass ratioon 09-30-2023 Albumin/Globulin [Mass ratio] 0.5 {ratio} [facility] Serum or plasma anion gap de terminationon 09-30-2023 Anion gap [Moles/Vol] 25.6 mmol/L [facility] Specific gravity Auto test s trip (U) [Rel density]on 09-30-2023 Specific gravity (U) [Rel density] CLEAR CLEAR [facility] Urine bacteria detection by automated methodon 09-30-2023 Bacteria Auto Ql (U) NONE SEEN #/HPF NONE SEEN [facility] Urine glucose measurement by test strip (mass/volume)on 09-30-2023 Glucose Test strip (U) [Mass/Vol] 500 mg/dL NEGATIVE [facility] Urine hemoglobin detection b y automated test stripon 09-30-2023 Hemoglobin Auto test strip Ql (U) TRACE-I NEGATIVE [facility] Urine nitrite detection by a utomated test stripon 09-30-2023 Nitrite Auto test strip Ql (U) Negative NEGATIVE [facility] Urine sediment crystal ident ification by light microscopyon 09-30-2023 Crystals LM Nom (Urine sed) None Seen #/HPF None Seen [facility] Urine sediment leukocyte cou nt by microscopy (number/high power field)on 09-30-2023 WBC LM.HPF (Urine sed) [#/Area] NONE SEEN #/HPF NONE SEEN [facility] Urobilinogen Auto test strip (U) [Mass/Vol]on 09-30-2023 Urobilinogen Qn (U) 0.2 {Brendan'U}/dL 0.2-1.0 [facility] pH Auto test strip (U)on pH (U) 5.5 [pH] 5.0-9.0 [facility] Guy 09-21-2023 L Specimen: [id number] Received: 09/21/23 Status: COLTON Nath Num: [id number] Spec Type: Surgical Subm Dr: Paula Elias DPM, MS Tissues: A Bone Fragments - Other than Path Fracture Procedures: HE, Gross/Micro L3, Decalcification Age/ Patient Sex Location Account Attending Physician Solomon Feldman SR 58/M LABELL [id number] Paula Elias DPM, MS SPEC NUM: [id number] RECD: 09/21/23 STATUS: COLTON NATH NUM: [id number] SHAKIRA: 09/21/[address]: Paula Elias DPM, MS ENTERED: 09/21/[address] [facility] [address]: SPEC TYPE: Surgical DEPT: RAMSEY MARCANO ENTERED BY: [id number] RECV BY: [id number] ORDERED: HE, Gross/Micro L3, Decalcification ORDERED: HE, [...] excisional debridement with skin substitute. CPT Codes 20024, 06155 Specimen: [id number] Received: 09/21/23 Status: COLTON Nath Num: [id number] Spec Type: Surgical Subm Dr: Paula Elias,DPM, MS Tissues: A Bone Fragments - Other than Path Fracture Procedures: HE, Gross/Micro L3, Decalcification Patient: Solomon Feldman SR [id number] (Continued) Signed (signature on file) Victor Hugo Sotelo MD 09/26/23 0843 Normal [facility] Laboratory - Microbiology an d Antimicrobial susceptibilityOrdered By: Jenaro Lynch on 09-21-2023 Microscopic observation Gram stain Nom (Unsp spec) [facility] Activated partial thrombopla stin time (aPTT) in platelet poor plasma by coagulation aon 09-18-2023 aPTT Coag (PPP) [Time] 32.0 s 22.3-36.2 [facility] Basophils Auto (Bld) [#/Vol] on 09-18-2023 Basophils (Bld) [#/Vol] 0.1 10 3/uL 0.0-0.1 [facility] Basophils/100 WBC Auto (Bld) on 09-18-2023 Basophils/100 WBC (Bld) 0.9 % 0.2-2.0 [facility] Eosinophils/100 WBC Auto (Bl d)on 09-18-2023 Eosinophils/100 WBC (Bld) 2.3 % 0.9-7.0 [facility] Erythrocyte distribution wid th Auto (RBC) [Ratio]on 09-18-2023 Erythrocyte distribution width (RBC) [Ratio] 18.8 % 11.0-15.0 [facility] Estimated glomerular filtrat ion rate (GFR) non- Americanon 09-18-2023 GFR/1.73 sq M.predicted among non-blacks MDRD (S/P/Bld) [Vol rate/Area] 27 mL/min/{1.73_m2} >=60 [facility] Hematocrit Auto (Bld) [Volum e fraction]on 09-18-2023 Hematocrit (Bld) [Volume fraction] 35.0 % 42.0-54.0 [facility] Hemoglobin [Mass/volume] in Bloodon 09-18-2023 Hemoglobin (Bld) [Mass/Vol] 10.3 g/dL 14.0-18.0 [facility] INR in Platelet poor plasma by Coagulation assayon 09-18-2023 INR Coag (PPP) [Relative time] 1.08 {INR} [facility] Comment on above: DESIRED INR:2.0-3.0 CONDITIONS NOT LISTED BELOW2.5-3.5 FOR PROSTHETIC HEART VALVE REPLACEMENT2.5-3.5 RECURRENT THROMBOSIS Laboratory - Chemistry and C hemistry - challengeon 09-18-2023 Calcium [Mass/Vol] 8.9 mg/dL 8.5-10.1 [facility] Chloride [Moles/Vol] 97 mmol/L 98-107 [facility] CO2 [Moles/Vol] 28.2 mmol/L 21.0-32.0 [facility] Creatinine [Mass/Vol] 2.47 mg/dL 0.70-1.30 [facility] GFR/1.73 sq M.predicted MDRD (S/P/Bld) [Vol rate/Area] 33 mL/min/{1.73_m2} >=60 [facility] Glucose [Mass/Vol] 200 mg/dL 74-106 [facility] Potassium [Moles/Vol] 3.7 mmol/L 3.5-5.1 [facility] Sodium [Moles/Vol] 137 mmol/L 136-145 [facility] Urea nitrogen [Mass/Vol] 23.0 mg/dL 7.0-18.0 [facility] Urea nitrogen/Creatinine [Mass ratio] 9.3 mg/mg [facility] Laboratory - Hematology and Cell countson 09-18-2023 Immature granulocytes/100 WBC (Bld) 0.6 % 0.0-0.5 [facility] Leukocytes [#/volume] correc jorge for nucleated erythrocytes in Blood by Automated counon 09-18-2023 WBC corrected for nucl RBC Auto (Bld) [#/Vol] 12.4 10 3/uL 4.0-11.0 [facility] Lymphocytes Auto (Bld) [#/Vo l]on 09-18-2023 Lymphocytes (Bld) [#/Vol] 2.4 10 3/uL 1.2-3.8 [facility] Lymphocytes/100 WBC Auto (Bl d)on 09-18-2023 Lymphocytes/100 WBC (Bld) 19.6 % 20.5-60.0 [facility] MCH Auto (RBC) [Entitic mass ]on 09-18-2023 MCH (RBC) [Entitic mass] 22.2 pg 25.9-34.0 [facility] MCHC Auto (RBC) [Mass/Vol]on 09-18-2023 MCHC (RBC) [Mass/Vol] 29.4 g/dL 29.9-35.2 [facility] MCV Auto (RBC) [Entitic vol] on 09-18-2023 MCV (RBC) [Entitic vol] 75.3 fL 80.0-94.0 [facility] Monocytes Auto (Bld) [#/Vol] on 09-18-2023 Monocytes (Bld) [#/Vol] 1.2 10 3/uL 0.3-0.8 [facility] Monocytes/100 WBC Auto (Bld) on 09-18-2023 Monocytes/100 WBC (Bld) 10.0 % 1.7-12.0 [facility] Neutrophils Auto (Bld) [#/Vo l]on 09-18-2023 Neutrophils (Bld) [#/Vol] 8.2 10 3/uL 1.4-6.5 [facility] Neutrophils/100 WBC Auto (Bl d)on 09-18-2023 Neutrophils/100 WBC (Bld) 66.6 % 43.0-75.0 [facility] No Panel Informationon 09-17 Eosinophils # (Auto) 0.3 10 3/uL 0.0-0.7 [facility] Immature Granulocyte # (Auto) 0.07 10 3/uL 0.00-0.03 [facility] Platelet mean volume Auto (B ld) [Entitic vol]on 09-18-2023 Platelet mean volume (Bld) [Entitic vol] 10.9 fL 9.5-13.5 [facility] Platelets Auto (Bld) [#/Vol] on 09-18-2023 Platelets (Bld) [#/Vol] 300 10 3/uL 150-450 [facility] Prothrombin time (PT)on 09-03 PT Coag (PPP) [Time] 11.4 s 9.0-11.6 [facility] RBC Auto (Bld) [#/Vol]on RBC (Bld) [#/Vol] 4.65 10 6/uL 4.70-6.10 [facility] Serum or plasma anion gap de terminationon 09-18-2023 Anion gap [Moles/Vol] 15.5 mmol/L [facility] - Microbiology an d Antimicrobial susceptibilityOrdered By: Jenaro Lynch on 08-10-2023 Microscopic observation Gram stain Nom (Unsp spec) [facility] No Panel Informationon 08-09 Fungal Smear Result [facility] Miscellaneous Test Comment See comment [facility] Comment on above: Specimen Source: JONO TRT - Foot Right - Foot Rt - 604.000 No Panel InformationOrdered By: Jenaro Lynch on 08-10-2023 Acid Fast Culture [facility] Acid Fast Smear [facility] AFB Specimen Processing [facility] Tissue Culture [facility] Basophils Auto (Bld) [#/Vol] on 08-07-2023 Basophils (Bld) [#/Vol] 0.1 10 3/uL 0.0-0.1 [facility] Basophils/100 WBC Auto (Bld) on 08-07-2023 Basophils/100 WBC (Bld) 0.7 % 0.2-2.0 [facility] Eosinophils/100 WBC Auto (Bl d)on 08-07-2023 Eosinophils/100 WBC (Bld) 3.9 % 0.9-7.0 [facility] Erythrocyte distribution wid th Auto (RBC) [Ratio]on 08-07-2023 Erythrocyte distribution width (RBC) [Ratio] 16.9 % 11.0-15.0 [facility] Estimated glomerular filtrat ion rate (GFR) non- Americanon 08-07-2023 GFR/1.73 sq M.predicted among non-blacks MDRD (S/P/Bld) [Vol rate/Area] 42 mL/min/{1.73_m2} >=60 [facility] Globulin Calc (S) [Mass/Vol] on 08-07-2023 Globulin (S) [Mass/Vol] 4.0 g/dL [facility] Hematocrit Auto (Bld) [Volum e fraction]on 08-07-2023 Hematocrit (Bld) [Volume fraction] 31.5 % 42.0-54.0 [facility] Hemoglobin [Mass/volume] in Bloodon 08-07-2023 Hemoglobin (Bld) [Mass/Vol] 9.4 g/dL 14.0-18.0 [facility] Laboratory - Chemistry and C hemistry - challengeon 08-07-2023 Albumin [Mass/Vol] 2.1 g/dL 3.4-5.0 [facility] ALP [Catalytic activity/Vol] 144 U/L 46-116 [facility] ALT [Catalytic activity/Vol] 21 U/L 16-63 [facility] AST [Catalytic activity/Vol] 25 U/L 15-37 [facility] Bilirubin [Mass/Vol] 0.4 mg/dL 0.2-1.0 [facility] Calcium [Mass/Vol] 8.1 mg/dL 8.5-10.1 [facility] Chloride [Moles/Vol] 102 mmol/L 98-107 [facility] CO2 [Moles/Vol] 24.7 mmol/L 21.0-32.0 [facility] Creatinine [Mass/Vol] 1.70 mg/dL 0.70-1.30 [facility] GFR/1.73 sq M.predicted MDRD (S/P/Bld) [Vol rate/Area] 50 mL/min/{1.73_m2} >=60 [facility] Glucose [Mass/Vol] 188 mg/dL 74-106 [facility] Potassium [Moles/Vol] 4.6 mmol/L 3.5-5.1 [facility] Protein [Mass/Vol] 6.1 g/dL 6.4-8.2 [facility] Sodium [Moles/Vol] 135 mmol/L 136-145 [facility] Urea nitrogen [Mass/Vol] 33.0 mg/dL 7.0-18.0 [facility] Urea nitrogen/Creatinine [Mass ratio] 19.4 mg/mg [facility] Laboratory - Hematology and Cell countson 08-07-2023 Immature granulocytes/100 WBC (Bld) 0.7 % 0.0-0.5 [facility] Leukocytes [#/volume] correc jorge for nucleated erythrocytes in Blood by Automated counon 08-07-2023 WBC corrected for nucl RBC Auto (Bld) [#/Vol] 12.0 10 3/uL 4.0-11.0 [facility] Lymphocytes Auto (Bld) [#/Vo l]on 08-07-2023 Lymphocytes (Bld) [#/Vol] 1.5 10 3/uL 1.2-3.8 [facility] Lymphocytes/100 WBC Auto (Bl d)on 08-07-2023 Lymphocytes/100 WBC (Bld) 12.4 % 20.5-60.0 [facility] MCH Auto (RBC) [Entitic mass ]on 08-07-2023 MCH (RBC) [Entitic mass] 22.5 pg 25.9-34.0 [facility] MCHC Auto (RBC) [Mass/Vol]on 08-07-2023 MCHC (RBC) [Mass/Vol] 29.8 g/dL 29.9-35.2 [facility] MCV Auto (RBC) [Entitic vol] on 08-07-2023 MCV (RBC) [Entitic vol] 75.4 fL 80.0-94.0 [facility] Monocytes Auto (Bld) [#/Vol] on 08-07-2023 Monocytes (Bld) [#/Vol] 1.2 10 3/uL 0.3-0.8 [facility] Monocytes/100 WBC Auto (Bld) on 08-07-2023 Monocytes/100 WBC (Bld) 10.1 % 1.7-12.0 [facility] Neutrophils Auto (Bld) [#/Vo l]on 08-07-2023 Neutrophils (Bld) [#/Vol] 8.7 10 3/uL 1.4-6.5 [facility] Neutrophils/100 WBC Auto (Bl d)on 08-07-2023 Neutrophils/100 WBC (Bld) 72.2 % 43.0-75.0 [facility] No Panel Informationon 08-06 Eosinophils # (Auto) 0.5 10 3/uL 0.0-0.7 [facility] Immature Granulocyte # (Auto) 0.09 10 3/uL 0.00-0.03 [facility] Platelet mean volume Auto (B ld) [Entitic vol]on 08-07-2023 Platelet mean volume (Bld) [Entitic vol] 11.7 fL 9.5-13.5 [facility] Platelets Auto (Bld) [#/Vol] on 08-07-2023 Platelets (Bld) [#/Vol] 222 10 3/uL 150-450 [facility] RBC Auto (Bld) [#/Vol]on RBC (Bld) [#/Vol] 4.18 10 6/uL 4.70-6.10 [facility] Serum or plasma albumin/glob ulin mass ratioon 08-07-2023 Albumin/Globulin [Mass ratio] 0.5 {ratio} [facility] Serum or plasma anion gap de terminationon 08-07-2023 Anion gap [Moles/Vol] 12.9 mmol/L [facility] Basophils Auto (Bld) [#/Vol] on 08-06-2023 Basophils (Bld) [#/Vol] 0.1 10 3/uL 0.0-0.1 [facility] Basophils/100 WBC Auto (Bld) on 08-06-2023 Basophils/100 WBC (Bld) 0.7 % 0.2-2.0 [facility] Eosinophils/100 WBC Auto (Bl d)on 08-06-2023 Eosinophils/100 WBC (Bld) 3.3 % 0.9-7.0 [facility] Erythrocyte distribution wid th Auto (RBC) [Ratio]on 08-06-2023 Erythrocyte distribution width (RBC) [Ratio] 17.0 % 11.0-15.0 [facility] Estimated glomerular filtrat ion rate (GFR) non- Americanon 08-06-2023 GFR/1.73 sq M.predicted among non-blacks MDRD (S/P/Bld) [Vol rate/Area] 36 mL/min/{1.73_m2} >=60 [facility] Globulin Calc (S) [Mass/Vol] on 08-06-2023 Globulin (S) [Mass/Vol] 4.0 g/dL [facility] Hematocrit Auto (Bld) [Volum e fraction]on 08-06-2023 Hematocrit (Bld) [Volume fraction] 30.1 % 42.0-54.0 [facility] Hemoglobin [Mass/volume] in Bloodon 08-06-2023 Hemoglobin (Bld) [Mass/Vol] 8.8 g/dL 14.0-18.0 [facility] Laboratory - Chemistry and C hemistry - challengeon 08-06-2023 Albumin [Mass/Vol] 2.0 g/dL 3.4-5.0 [facility] ALP [Catalytic activity/Vol] 127 U/L 46-116 [facility] ALT [Catalytic activity/Vol] 14 U/L 16-63 [facility] AST [Catalytic activity/Vol] 16 U/L 15-37 [facility] Bilirubin [Mass/Vol] 0.4 mg/dL 0.2-1.0 [facility] Calcium [Mass/Vol] 7.9 mg/dL 8.5-10.1 [facility] Chloride [Moles/Vol] 99 mmol/L 98-107 [facility] CO2 [Moles/Vol] 25.0 mmol/L 21.0-32.0 [facility] Creatinine [Mass/Vol] 1.95 mg/dL 0.70-1.30 [facility] GFR/1.73 sq M.predicted MDRD (S/P/Bld) [Vol rate/Area] 43 mL/min/{1.73_m2} >=60 [facility] Glucose [Mass/Vol] 297 mg/dL 74-106 [facility] Potassium [Moles/Vol] 4.4 mmol/L 3.5-5.1 [facility] Protein [Mass/Vol] 6.0 g/dL 6.4-8.2 [facility] Sodium [Moles/Vol] 133 mmol/L 136-145 [facility] Urea nitrogen [Mass/Vol] 28.0 mg/dL 7.0-18.0 [facility] Urea nitrogen/Creatinine [Mass ratio] 14.4 mg/mg [facility] Laboratory - Hematology and Cell countson 08-06-2023 Immature granulocytes/100 WBC (Bld) 0.4 % 0.0-0.5 [facility] Leukocytes [#/volume] correc jorge for nucleated erythrocytes in Blood by Automated counon 08-06-2023 WBC corrected for nucl RBC Auto (Bld) [#/Vol] 10.1 10 3/uL 4.0-11.0 [facility] Lymphocytes Auto (Bld) [#/Vo l]on 08-06-2023 Lymphocytes (Bld) [#/Vol] 1.5 10 3/uL 1.2-3.8 [facility] Lymphocytes/100 WBC Auto (Bl d)on 08-06-2023 Lymphocytes/100 WBC (Bld) 14.4 % 20.5-60.0 [facility] MCH Auto (RBC) [Entitic mass ]on 08-06-2023 MCH (RBC) [Entitic mass] 22.5 pg 25.9-34.0 [facility] MCHC Auto (RBC) [Mass/Vol]on 08-06-2023 MCHC (RBC) [Mass/Vol] 29.2 g/dL 29.9-35.2 [facility] MCV Auto (RBC) [Entitic vol] on 08-06-2023 MCV (RBC) [Entitic vol] 77.0 fL 80.0-94.0 [facility] Monocytes Auto (Bld) [#/Vol] on 08-06-2023 Monocytes (Bld) [#/Vol] 1.1 10 3/uL 0.3-0.8 [facility] Monocytes/100 WBC Auto (Bld) on 08-06-2023 Monocytes/100 WBC (Bld) 10.4 % 1.7-12.0 [facility] Neutrophils Auto (Bld) [#/Vo l]on 08-06-2023 Neutrophils (Bld) [#/Vol] 7.2 10 3/uL 1.4-6.5 [facility] Neutrophils/100 WBC Auto (Bl d)on 08-06-2023 Neutrophils/100 WBC (Bld) 70.8 % 43.0-75.0 [facility] No Panel Informationon 08-05 Vancomycin Level Trough 13.6 ug/mL 5.0-20.0 [facility] Eosinophils # (Auto) 0.3 10 3/uL 0.0-0.7 [facility] Immature Granulocyte # (Auto) 0.04 10 3/uL 0.00-0.03 [facility] Platelet mean volume Auto (B ld) [Entitic vol]on 08-06-2023 Platelet mean volume (Bld) [Entitic vol] 12.2 fL 9.5-13.5 [facility] Platelets Auto (Bld) [#/Vol] on 08-06-2023 Platelets (Bld) [#/Vol] 190 10 3/uL 150-450 [facility] RBC Auto (Bld) [#/Vol]on RBC (Bld) [#/Vol] 3.91 10 6/uL 4.70-6.10 [facility] Serum or plasma albumin/glob ulin mass ratioon 08-06-2023 Albumin/Globulin [Mass ratio] 0.5 {ratio} [facility] Serum or plasma anion gap de terminationon 08-06-2023 Anion gap [Moles/Vol] 13.4 mmol[facility] Autom[facility] epithelial cells c ount in urine sediment (number/area)on 08-05-2023 Epithelial cells Auto (Urine sed) [#/Area] RARE #/LPF NONE/RARE [facility] Automated leukocytes count i n urine sediment (number/area)on 08-05-2023 WBC Auto (Urine sed) [#/Area] NONE SEEN #/HPF 0-2 [facility] Automated urine specific gra vity by refractometryon 08-05-2023 Specific gravity Refractometry automated (U) [Rel density] <=1.005 1.005-1.02 5 [facility] Basophils Auto (Bld) [#/Vol] on 08-05-2023 Basophils (Bld) [#/Vol] 0.1 10 3/uL 0.0-0.1 [facility] Basophils/100 WBC Auto (Bld) on 08-05-2023 Basophils/100 WBC (Bld) 0.7 % 0.2-2.0 [facility] Bilirubin Auto test strip (U ) [Mass/Vol]on 08-05-2023 Bilirubin (U) [Mass/Vol] Negative NEGATIVE [facility] Casts typing in urine sedime nt by light microscopyon 08-05-2023 Casts LM Nom (Urine sed) NONE SEEN #/LPF NONE SEEN [facility] Color Auto (U)on 08-05-2023 Color (U) LT. YELLOW YELLOW [facility] Eosinophils/100 WBC Auto (Bl d)on 08-05-2023 Eosinophils/100 WBC (Bld) 2.5 % 0.9-7.0 [facility] Erythrocyte distribution wid th Auto (RBC) [Ratio]on 08-05-2023 Erythrocyte distribution width (RBC) [Ratio] 16.8 % 11.0-15.0 [facility] Estimated glomerular filtrat ion rate (GFR) non- Americanon 08-05-2023 GFR/1.73 sq M.predicted among non-blacks MDRD (S/P/Bld) [Vol rate/Area] 42 mL/min/{1.73_m2} >=60 [facility] Globulin Calc (S) [Mass/Vol] on 08-05-2023 Globulin (S) [Mass/Vol] 4.1 g/dL [facility] Glucose mean value [Mass/vol ume] in Blood Estimated from glycated hemoglobinon 08-05-2023 Average glucose Estimated from glycated hemoglobin (Bld) [Mass/Vol] 214 mg/dL [facility] Hematocrit Auto (Bld) [Volum e fraction]on 08-05-2023 Hematocrit (Bld) [Volume fraction] 31.8 % 42.0-54.0 [facility] Hemoglobin [Mass/volume] in Bloodon 08-05-2023 Hemoglobin (Bld) [Mass/Vol] 9.4 g/dL 14.0-18.0 [facility] Ketones Auto test strip (U) [Mass/Vol]on 08-05-2023 Ketones (U) [Mass/Vol] Negative NEGATIVE [facility] Laboratory - Chemistry and C hemistry - challengeon 08-05-2023 Albumin [Mass/Vol] 2.3 g/dL 3.4-5.0 [facility] ALP [Catalytic activity/Vol] 111 U/L 46-116 [facility] ALT [Catalytic activity/Vol] 11 U/L 16-63 [facility] AST [Catalytic activity/Vol] 11 U/L 15-37 [facility] Bilirubin [Mass/Vol] 0.5 mg/dL 0.2-1.0 [facility] Calcium [Mass/Vol] 8.1 mg/dL 8.5-10.1 [facility] Chloride [Moles/Vol] 101 mmol/L 98-107 [facility] CO2 [Moles/Vol] 25.6 mmol/L 21.0-32.0 [facility] Creatinine [Mass/Vol] 1.68 mg/dL 0.70-1.30 [facility] GFR/1.73 sq M.predicted MDRD (S/P/Bld) [Vol rate/Area] 51 mL/min/{1.73_m2} >=60 [facility] Glucose [Mass/Vol] 111 mg/dL 74-106 [facility] Potassium [Moles/Vol] 3.7 mmol/L 3.5-5.1 [facility] Protein [Mass/Vol] 6.4 g/dL 6.4-8.2 [facility] Sodium [Moles/Vol] 138 mmol/L 136-145 [facility] Urea nitrogen [Mass/Vol] 17.0 mg/dL 7.0-18.0 [facility] Urea nitrogen/Creatinine [Mass ratio] 10.1 mg/mg [facility] Laboratory - Hematology and Cell countson 08-05-2023 HbA1c (Bld) [Mass fraction] 9.1 % 4.5-6.2 [facility] Comment on above: ADA RECOMMENDED LIMI T 4.0 - 6.0ADA THERAPEUTIC TARGET < 7.0ACTION SUGGESTED> 7.0 Immature granulocytes/100 WBC (Bld) 0.4 % 0.0-0.5 [facility] Laboratory - Microbiology an d Antimicrobial susceptibilityOrdered By: Jenaro Lynch on 08-05-2023 Microscopic observation Gram stain Nom (Unsp spec) [facility] Leukocytes [#/volume] correc jorge for nucleated erythrocytes in Blood by Automated counon 08-05-2023 WBC corrected for nucl RBC Auto (Bld) [#/Vol] 12.3 10 3/uL 4.0-11.0 [facility] Lymphocytes Auto (Bld) [#/Vo l]on 08-05-2023 Lymphocytes (Bld) [#/Vol] 1.5 10 3/uL 1.2-3.8 [facility] Lymphocytes/100 WBC Auto (Bl d)on 08-05-2023 Lymphocytes/100 WBC (Bld) 11.8 % 20.5-60.0 [facility] MCH Auto (RBC) [Entitic mass ]on 08-05-2023 MCH (RBC) [Entitic mass] 22.4 pg 25.9-34.0 [facility] MCHC Auto (RBC) [Mass/Vol]on 08-05-2023 MCHC (RBC) [Mass/Vol] 29.6 g/dL 29.9-35.2 [facility] MCV Auto (RBC) [Entitic vol] on 08-05-2023 MCV (RBC) [Entitic vol] 75.9 fL 80.0-94.0 [facility] Monocytes Auto (Bld) [#/Vol] on 08-05-2023 Monocytes (Bld) [#/Vol] 1.3 10 3/uL 0.3-0.8 [facility] Monocytes/100 WBC Auto (Bld) on 08-05-2023 Monocytes/100 WBC (Bld) 10.7 % 1.7-12.0 [facility] Mucus LM Ql (Urine sed)on Mucus Ql (Urine sed) NONE SEEN NONE SEEN [facility] Neutrophils Auto (Bld) [#/Vo l]on 08-05-2023 Neutrophils (Bld) [#/Vol] 9.1 10 3/uL 1.4-6.5 [facility] Neutrophils/100 WBC Auto (Bl d)on 08-05-2023 Neutrophils/100 WBC (Bld) 73.9 % 43.0-75.0 [facility] No Panel Informationon 08-04 Eosinophils # (Auto) 0.3 10 3/uL 0.0-0.7 [facility] Immature Granulocyte # (Auto) 0.05 10 3/uL 0.00-0.03 [facility] Platelet mean volume Auto (B ld) [Entitic vol]on 08-05-2023 Platelet mean volume (Bld) [Entitic vol] 11.2 fL 9.5-13.5 [facility] Platelets Auto (Bld) [#/Vol] on 08-05-2023 Platelets (Bld) [#/Vol] 184 10 3/uL 150-450 [facility] Protein Auto test strip (U) [Mass/Vol]on 08-05-2023 Protein (U) [Mass/Vol] Negative NEG/TRACE [facility] RBC Auto (Bld) [#/Vol]on RBC (Bld) [#/Vol] 4.19 10 6/uL 4.70-6.10 [facility] Serum or plasma albumin/glob ulin mass ratioon 08-05-2023 Albumin/Globulin [Mass ratio] 0.6 {ratio} [facility] Serum or plasma anion gap de terminationon 08-05-2023 Anion gap [Moles/Vol] 15.1 [facility] Specific gravity Auto test s trip (U) [Rel density]on 08-05-2023 Specific gravity (U) [Rel density] CLEAR CLEAR [facility] Urine bacteria detection by automated methodon 08-05-2023 Bacteria Auto Ql (U) TRACE #/HPF NONE SEEN [facility] Urine glucose measurement by test strip (mass/volume)on 08-05-2023 Glucose Test strip (U) [Mass/Vol] >=1000 mg/dL NEGATIVE [facility] Urine hemoglobin detection b y automated test stripon 08-05-2023 Hemoglobin Auto test strip Ql (U) Negative NEGATIVE [facility] Urine nitrite detection by a utomated test stripon 08-05-2023 Nitrite Auto test strip Ql (U) Negative NEGATIVE [facility] Urine sediment crystal ident ification by light microscopyon 08-05-2023 Crystals LM Nom (Urine sed) None Seen #/HPF None Seen [facility] Urine sediment leukocyte cou nt by microscopy (number/high power field)on 08-05-2023 WBC LM.HPF (Urine sed) [#/Area] NONE SEEN #/HPF NONE SEEN [facility] Urobilinogen Auto test strip (U) [Mass/Vol]on 08-05-2023 Urobilinogen Qn (U) 0.2 {Brendan'U}/dL 0.2-1.0 [facility] pH Auto test strip (U)on pH (U) 6.0 [pH] 5.0-9.0 [facility] Basophils Auto (Bld) [#/Vol] on 08-04-2023 Basophils (Bld) [#/Vol] 0.1 10 3/uL 0.0-0.1 [facility] Basophils/100 WBC Auto (Bld) on 08-04-2023 Basophils/100 WBC (Bld) 0.8 % 0.2-2.0 [facility] Eosinophils/100 WBC Auto (Bl d)on 08-04-2023 Eosinophils/100 WBC (Bld) 2.8 % 0.9-7.0 [facility] Erythrocyte distribution wid th Auto (RBC) [Ratio]on 08-04-2023 Erythrocyte distribution width (RBC) [Ratio] 16.9 % 11.0-15.0 [facility] Estimated glomerular filtrat ion rate (GFR) non- Americanon 08-04-2023 GFR/1.73 sq M.predicted among non-blacks MDRD (S/P/Bld) [Vol rate/Area] 33 mL/min/{1.73_m2} >=60 [facility] Globulin Calc (S) [Mass/Vol] on 08-04-2023 Globulin (S) [Mass/Vol] 4.4 g/dL [facility] Hematocrit Auto (Bld) [Volum e fraction]on 08-04-2023 Hematocrit (Bld) [Volume fraction] 32.6 % 42.0-54.0 [facility] Hemoglobin [Mass/volume] in Bloodon 08-04-2023 Hemoglobin (Bld) [Mass/Vol] 9.6 g/dL 14.0-18.0 [facility] INR in Platelet poor plasma by Coagulation assayon 08-04-2023 INR Coag (PPP) [Relative time] 1.05 {INR} [facility] Comment on above: DESIRED INR:2.0-3.0 CONDITIONS NOT LISTED BELOW2.5-3.5 FOR PROSTHETIC HEART VALVE REPLACEMENT2.5-3.5 RECURRENT THROMBOSIS Laboratory - Chemistry and C hemistry - challengeon 08-04-2023 Albumin [Mass/Vol] 2.4 g/dL 3.4-5.0 [facility] ALP [Catalytic activity/Vol] 109 U/L 46-116 [facility] ALT [Catalytic activity/Vol] 9 U/L 16-63 [facility] AST [Catalytic activity/Vol] U/L 15-37 [facility] Bilirubin [Mass/Vol] 0.4 mg/dL 0.2-1.0 [facility] Calcium [Mass/Vol] 8.0 mg/dL 8.5-10.1 [facility] Chloride [Moles/Vol] 96 mmol/L 98-107 [facility] CO2 [Moles/Vol] 29.2 mmol/L 21.0-32.0 [facility] Creatinine [Mass/Vol] 2.06 mg/dL 0.70-1.30 [facility] GFR/1.73 sq M.predicted MDRD (S/P/Bld) [Vol rate/Area] 40 mL/min/{1.73_m2} >=60 [facility] Glucose [Mass/Vol] 329 mg/dL 74-106 [facility] Potassium [Moles/Vol] 3.5 mmol/L 3.5-5.1 [facility] Protein [Mass/Vol] 6.8 g/dL 6.4-8.2 [facility] Sodium [Moles/Vol] 132 mmol/L 136-145 [facility] Urea nitrogen [Mass/Vol] 20.0 mg/dL 7.0-18.0 [facility] Urea nitrogen/Creatinine [Mass ratio] 9.7 mg/mg [facility] Laboratory - Hematology and Cell countson 08-04-2023 ESR (Bld) [Velocity] 89 mm/h <=20 [facility] Immature granulocytes/100 WBC (Bld) 0.3 % 0.0-0.5 [facility] Laboratory - Microbiology an d Antimicrobial susceptibilityOrdered By: Jenaro Lynch on 08-04-2023 Microscopic observation Gram stain Nom (Unsp spec) [facility] Leukocytes [#/volume] correc jorge for nucleated erythrocytes in Blood by Automated counon 08-04-2023 WBC corrected for nucl RBC Auto (Bld) [#/Vol] 11.6 10 3/uL 4.0-11.0 [facility] Lymphocytes Auto (Bld) [#/Vo l]on 08-04-2023 Lymphocytes (Bld) [#/Vol] 1.7 10 3/uL 1.2-3.8 [facility] Lymphocytes/100 WBC Auto (Bl d)on 08-04-2023 Lymphocytes/100 WBC (Bld) 14.9 % 20.5-60.0 [facility] MCH Auto (RBC) [Entitic mass ]on 08-04-2023 MCH (RBC) [Entitic mass] 22.3 pg 25.9-34.0 [facility] MCHC Auto (RBC) [Mass/Vol]on 08-04-2023 MCHC (RBC) [Mass/Vol] 29.4 g/dL 29.9-35.2 [facility] MCV Auto (RBC) [Entitic vol] on 08-04-2023 MCV (RBC) [Entitic vol] 75.8 fL 80.0-94.0 [facility] Monocytes Auto (Bld) [#/Vol] on 08-04-2023 Monocytes (Bld) [#/Vol] 1.2 10 3/uL 0.3-0.8 [facility] Monocytes/100 WBC Auto (Bld) on 08-04-2023 Monocytes/100 WBC (Bld) 10.4 % 1.7-12.0 [facility] Neutrophils Auto (Bld) [#/Vo l]on 08-04-2023 Neutrophils (Bld) [#/Vol] 8.2 10 3/uL 1.4-6.5 [facility] Neutrophils/100 WBC Auto (Bl d)on 08-04-2023 Neutrophils/100 WBC (Bld) 70.8 % 43.0-75.0 [facility] No Panel InformationOrdered By: Jenaro Lynch on 08-04-2023 Blood Culture 2 [facility] Blood Culture 1 [facility] Wound Culture [facility] No Panel Informationon 08-03 Aerobic & Anaerobic Susceptibility [facility] Miscellaneous Test Comment See comment [facility] Comment on above: Specimen Source: JONO T - Foot - Foot - 603.950 C-Reactive Protein, Quantitative 11.62 mg/dL <=0.50 [facility] Eosinophils # (Auto) 0.3 10 3/uL 0.0-0.7 [facility] Immature Granulocyte # (Auto) 0.04 10 3/uL 0.00-0.03 [facility] Platelet mean volume Auto (B ld) [Entitic vol]on 08-04-2023 Platelet mean volume (Bld) [Entitic vol] 11.5 fL 9.5-13.5 [facility] Platelets Auto (Bld) [#/Vol] on 08-04-2023 Platelets (Bld) [#/Vol] 206 10 3/uL 150-450 [facility] Prothrombin time (PT)on PT Coag (PPP) [Time] 11.1 s 9.0-11.6 [facility] RBC Auto (Bld) [#/Vol]on RBC (Bld) [#/Vol] 4.30 10 6/uL 4.70-6.10 [facility] Serum or plasma albumin/glob ulin mass ratioon 08-04-2023 Albumin/Globulin [Mass ratio] 0.5 {ratio} [facility] Serum or plasma anion gap de terminationon 08-04-2023 Anion gap [Moles/Vol] 10.3 mmol/L [facility] Serum procalcitonin measurem enton 08-04-2023 Procalcitonin [Mass/Vol] 0.10 ng/mL 0.00-0.50 [facility] Basophils Auto (Bld) [#/Vol] on 08-03-2023 Basophils (Bld) [#/Vol] 0.1 10 3/uL 0.0-0.1 [facility] Basophils/100 WBC Auto (Bld) on 08-03-2023 Basophils/100 WBC (Bld) 0.7 % 0.2-2.0 [facility] Eosinophils/100 WBC Auto (Bl d)on 08-03-2023 Eosinophils/100 WBC (Bld) 1.8 % 0.9-7.0 [facility] Erythrocyte distribution wid th Auto (RBC) [Ratio]on 08-03-2023 Erythrocyte distribution width (RBC) [Ratio] 17.0 % 11.0-15.0 [facility] Estimated glomerular filtrat ion rate (GFR) non- Americanon 08-03-2023 GFR/1.73 sq M.predicted among non-blacks MDRD (S/P/Bld) [Vol rate/Area] 27 mL/min/{1.73_m2} >=60 [facility] Globulin Calc (S) [Mass/Vol] on 08-03-2023 Globulin (S) [Mass/Vol] 5.0 g/dL [facility] Hematocrit Auto (Bld) [Volum e fraction]on 08-03-2023 Hematocrit (Bld) [Volume fraction] 38.9 % 42.0-54.0 [facility] Hemoglobin [Mass/volume] in Bloodon 08-03-2023 Hemoglobin (Bld) [Mass/Vol] 11.8 g/dL 14.0-18.0 [facility] Laboratory - Chemistry and C hemistry - challengeon 08-03-2023 Lactate [Moles/Vol] 1.6 mmol/L 0.4-2.0 [facility] Albumin [Mass/Vol] 3.3 g/dL 3.4-5.0 [facility] ALP [Catalytic activity/Vol] 134 U/L 46-116 [facility] ALT [Catalytic activity/Vol] 13 U/L 16-63 [facility] AST [Catalytic activity/Vol] U/L 15-37 [facility] Bilirubin [Mass/Vol] 0.6 mg/dL 0.2-1.0 [facility] Calcium [Mass/Vol] 9.3 mg/dL 8.5-10.1 [facility] Chloride [Moles/Vol] 92 mmol/L 98-107 [facility] CO2 [Moles/Vol] 31.0 mmol/L 21.0-32.0 [facility] Creatinine [Mass/Vol] 2.45 mg/dL 0.70-1.30 [facility] GFR/1.73 sq M.predicted MDRD (S/P/Bld) [Vol rate/Area] 33 mL/min/{1.73_m2} >=60 [facility] Glucose [Mass/Vol] 310 mg/dL 74-106 [facility] Potassium [Moles/Vol] 3.7 mmol/L 3.5-5.1 [facility] Protein [Mass/Vol] 8.3 g/dL 6.4-8.2 [facility] Sodium [Moles/Vol] 133 mmol/L 136-145 [facility] Urea nitrogen [Mass/Vol] 23.0 mg/dL 7.0-18.0 [facility] Urea nitrogen/Creatinine [Mass ratio] 9.4 mg/mg [facility] Laboratory - Hematology and Cell countson 08-03-2023 ESR (Bld) [Velocity] 118 mm/h <=20 [facility] Immature granulocytes/100 WBC (Bld) 0.4 % 0.0-0.5 [facility] Leukocytes [#/volume] correc jorge for nucleated erythrocytes in Blood by Automated counon 08-03-2023 WBC corrected for nucl RBC Auto (Bld) [#/Vol] 14.6 10 3/uL 4.0-11.0 [facility] Lymphocytes Auto (Bld) [#/Vo l]on 08-03-2023 Lymphocytes (Bld) [#/Vol] 2.1 10 3/uL 1.2-3.8 [facility] Lymphocytes/100 WBC Auto (Bl d)on 08-03-2023 Lymphocytes/100 WBC (Bld) 14.3 % 20.5-60.0 [facility] MCH Auto (RBC) [Entitic mass ]on 08-03-2023 MCH (RBC) [Entitic mass] 22.6 pg 25.9-34.0 [facility] MCHC Auto (RBC) [Mass/Vol]on 08-03-2023 MCHC (RBC) [Mass/Vol] 30.3 g/dL 29.9-35.2 [facility] MCV Auto (RBC) [Entitic vol] on 08-03-2023 MCV (RBC) [Entitic vol] 74.4 fL 80.0-94.0 [facility] Monocytes Auto (Bld) [#/Vol] on 08-03-2023 Monocytes (Bld) [#/Vol] 1.4 10 3/uL 0.3-0.8 [facility] Monocytes/100 WBC Auto (Bld) on 08-03-2023 Monocytes/100 WBC (Bld) 9.4 % 1.7-12.0 [facility] Neutrophils Auto (Bld) [#/Vo l]on 08-03-2023 Neutrophils (Bld) [#/Vol] 10.7 10 3/uL 1.4-6.5 [facility] Neutrophils/100 WBC Auto (Bl d)on 08-03-2023 Neutrophils/100 WBC (Bld) 73.4 % 43.0-75.0 [facility] No Panel Informationon C-Reactive Protein, Quantitative 14.63 mg/dL <=0.50 [facility] Eosinophils # (Auto) 0.3 10 3/uL 0.0-0.7 [facility] Immature Granulocyte # (Auto) 0.06 10 3/uL 0.00-0.03 [facility] Venous Blood Partial Pressure CO2 44.8 mm[Hg] 40.0-52.0 [facility] Venous Blood pH 7.432 7.330-7.43 0 [facility] No Panel InformationOrdered By: Jenaro Lynch on 08-03-2023 Blood Culture 2 [facility] Blood Culture 1 [facility] Platelet mean volume Auto (B ld) [Entitic vol]on 08-03-2023 Platelet mean volume (Bld) [Entitic vol] 11.4 fL 9.5-13.5 [facility] Platelets Auto (Bld) [#/Vol] on 08-03-2023 Platelets (Bld) [#/Vol] 252 10 3/uL 150-450 [facility] RBC Auto (Bld) [#/Vol]on RBC (Bld) [#/Vol] 5.23 10 6/uL 4.70-6.10 [facility] Serum or plasma albumin/glob ulin mass ratioon 08-03-2023 Albumin/Globulin [Mass ratio] 0.7 {ratio} [facility] Serum or plasma anion gap de terminationon 08-03-2023 Anion gap [Moles/Vol] 13.7 mmol/L [facility] US venous duplex LE BIon US venous duplex LE BI [facility] Main [place] [id number] Ultrasound Report Signed Patient: Solomon Feldman SR MR#: [id number] : 1965 Acct:[id number] Age/Sex: 57 / M ADM Date: 07/12/23 Loc: ER Room: Type: [facility] ER Attending Dr: Ordering Provider: [...] Howard Boss MD07/13/2023 11:56 AM Dictation Location: [place] [address] Tech: Nancy Pantoja Transcribed By: BOB 07/13/23 1156 Dictated By: Howard Boss MD 07/13/23 1156 Signed By: 07/13/23 1156 Normal [facility] US venous duplex UE LTon US venous duplex UE LT [facility] [place] [address] Ultrasound Report Signed Patient: Solomon Feldman SR MR#: [id number] : 1965 Acct:[id number] Age/Sex: 57 / M ADM Date: 07/12/23 Loc: ER Room: Type: [facility] ER Attending Dr: Ordering Provider: [...] Howard Boss MD07/13/2023 11:56 AM Dictation Location: [place] [address] Tech: Nancy Pantoja Transcribed By: BOB 07/13/23 1156 Dictated By: Howard Boss MD 07/13/23 1155 Signed By: 07/13/23 1156 Normal [facility] Activated partial thrombopla stin time (aPTT) in platelet poor plasma by coagulation aOrdered By: Nancy Wilson on 07-12-2023 aPTT Coag (PPP) [Time] 29.4 s 25.1-36.5 [facility] Comment on above: A hematocrit value g reater than 55% may lead to inaccurate results in coagulation testing. Patients having hematocrit values >55% require a special collection tube for coagulation studies. Please contact the laboratory at [phone] for redraw instructions. Alanine aminotransferase [En zymatic activity/volume] in Serum or PlasmaOrdered By: Nancy Wilson on 07-12-2023 ALT [Catalytic activity/Vol] 9 U/L 7-52 [facility] Albumin [Mass/volume] in Ser um or Plasma by Bromocresol green (BCG) dye binding methoOrdered By: Nancy Wilson on 07-12-2023 Albumin BCG dye [Mass/Vol] 3.9 g/dL 3.5-5.7 [facility] Alkaline phosphatase [Enzyma tic activity/volume] in Serum or PlasmaOrdered By: Nancy Wilson on 07-12-2023 ALP [Catalytic activity/Vol] 106 U/L 34-104 [facility] Aspartate aminotransferase [ Enzymatic activity/volume] in Serum or PlasmaOrdered By: Nancy Wilson on 07-12-2023 AST [Catalytic activity/Vol] 8 U/L 13-39 [facility] B-Type Natriuretic Peptideon 07-12-2023 Natriuretic peptide B (Bld) [Mass/Vol] 34.0 pg/mL Normal 5-100 [facility] Comment on above: Result Comment: PERF ORMED BY: [facility] [address] [place] [address] PATHOLOGIST CORPORATE AUDITOR CLIFFORD LOBATO M.D. Performed By: #### P TT, CBC, PT, BNP, CMP, HS TROP, CK #### [facility] [address] Basophils Auto (Bld) [#/Vol] Ordered By: Nancy Wilson on 07-12-2023 Basophils (Bld) [#/Vol] 0.1 10*3/uL 0.0-0.2 [facility] Basophils/100 WBC Auto (Bld) Ordered By: Nancy Wilson on 07-12-2023 Basophils/100 WBC (Bld) 1.1 % . [facility] Bilirubin.total [Mass/volume ] in Serum or PlasmaOrdered By: Nancy Wilson on 07-12-2023 Bilirubin [Mass/Vol] 0.4 mg/dL 0.3-1.0 [facility] Calcium [Mass/volume] in Ser um or PlasmaOrdered By: Nancy Wilson on 07-12-2023 Calcium [Mass/Vol] 8.5 mg/dL 8.6-10.3 [facility] Carbon dioxide, total [Moles /volume] in Serum or PlasmaOrdered By: Nancy Wilson on 07-12-2023 CO2 [Moles/Vol] 24.5 mmol/L 21.0-31.0 [facility] Chloride [Moles/volume] in S ilia or PlasmaOrdered By: Nancy Wilson on 07-12-2023 Chloride [Moles/Vol] 102 mmol/L 98-107 [facility] Complete Blood Count Auto Di ffon 07-12-2023 Basophils (Bld) [#/Vol] 0.1 10*3/uL Normal 0.0-0.2 [facility] Comment on above: Result Comment: PERF ORMED BY: [place] [address] PATHOLOGIST CORPORATE AUDITOR CLIFFORD LOBATO M.D. Performed By: #### P TT, CBC, PT, BNP, CMP, HS TROP, CK #### [address] Basophils/100 WBC (Bld) 1.1 % Normal . [facility] Comment on above: Performed By: #### P TT, CBC, PT, BNP, CMP, HS TROP, CK #### [address] Eosinophils (Bld) [#/Vol] 0.3 10*3/uL Normal 0.0-0.45 [facility] Comment on above: Performed By: #### P TT, CBC, PT, BNP, CMP, HS TROP, CK #### [address] Eosinophils/100 WBC (Bld) 3.3 % Normal . [facility] Comment on above: Performed By: #### P TT, CBC, PT, BNP, CMP, HS TROP, CK #### [address] Erythrocyte distribution width (RBC) [Ratio] 17.1 % High 12.0-14.8 [facility] Comment on above: Performed By: #### P TT, CBC, PT, BNP, CMP, HS TROP, CK #### [address] Hematocrit (Bld) [Volume fraction] 32.7 % Low 38.8-50.0 [facility] Comment on above: Performed By: #### P TT, CBC, PT, BNP, CMP, HS TROP, CK #### [address] Hemoglobin (Bld) [Mass/Vol] 10.6 g/dL Low 13.0-17.0 [facility] Comment on above: Performed By: #### P TT, CBC, PT, BNP, CMP, HS TROP, CK #### [address] Lymphocytes (Bld) [#/Vol] 1.9 10*3/uL Normal 1.00-4.8 [facility] Comment on above: Performed By: #### P TT, CBC, PT, BNP, CMP, HS TROP, CK #### [address] Lymphocytes/100 WBC (Bld) 20.0 % Normal . [facility] Comment on above: Performed By: #### P TT, CBC, PT, BNP, CMP, HS TROP, CK #### [address] MCH (RBC) [Entitic mass] 22.8 pg Low 27.5-35.2 [facility] Comment on above: Performed By: #### P TT, CBC, PT, BNP, CMP, HS TROP, CK #### [address] MCV (RBC) [Entitic vol] 70.6 fL Low 83.5-101 [facility] Comment on above: Performed By: #### P TT, CBC, PT, BNP, CMP, HS TROP, CK #### [address] Mean Corpuscular HGB Conc 32.4 g/dL Low 32.5-35.6 [facility] Comment on above: Performed By: #### P TT, CBC, PT, BNP, CMP, HS TROP, CK #### [address] Monocytes (Bld) [#/Vol] 1.0 10*3/uL High 0.0-0.8 [facility] Comment on above: Performed By: #### P TT, CBC, PT, BNP, CMP, HS TROP, CK #### [address] Monocytes/100 WBC (Bld) 18.12 % Normal 0.00-20.00 [facility] Comment on above: Performed By: #### P TT, CBC, PT, BNP, CMP, HS TROP, CK #### [address] Monocytes/100 WBC (Bld) 10.2 % Normal . [facility] Comment on above: Performed By: #### P TT, CBC, PT, BNP, CMP, HS TROP, CK #### [address] Neutrophils (Bld) [#/Vol] 6.2 10*3/uL Normal 1.8-7.7 [facility] Comment on above: Performed By: #### P TT, CBC, PT, BNP, CMP, HS TROP, CK #### [facility] [address] Neutrophils/100 WBC (Bld) 65.4 % Normal . [facility] Comment on above: Performed By: #### P TT, CBC, PT, BNP, CMP, HS TROP, CK #### [facility] [address] NRBC% 0.1 /100{WBC} Normal 0-0.5 [facility] Comment on above: Performed By: #### P TT, CBC, PT, BNP, CMP, HS TROP, CK #### [facility] [address] Platelet mean volume (Bld) [Entitic vol] 9.1 fL Normal 6.6-10.1 [facility] Comment on above: Performed By: #### P TT, CBC, PT, BNP, CMP, HS TROP, CK #### [facility] [address] Platelets (Bld) [#/Vol] 233 10*3/uL Normal 150-450 [facility] Comment on above: Performed By: #### P TT, CBC, PT, BNP, CMP, HS TROP, CK #### [address] RBC (Bld) [#/Vol] 4.63 10*6/uL Normal 3.90-5.60 [facility] Comment on above: Performed By: #### P TT, CBC, PT, BNP, CMP, HS TROP, CK #### [facility] [address] WBC (Bld) [#/Vol] 9.5 10*3/uL Normal 4.1-10.5 [facility] Comment on above: Performed By: #### P TT, CBC, PT, BNP, CMP, HS TROP, CK #### [address] Comprehensive Metabolic Pane guy 07-12-2023 Albumin [Mass/Vol] 3.9 g/dL Normal 3.5-5.7 [facility] Comment on above: Performed By: #### P TT, CBC, PT, BNP, CMP, HS TROP, CK #### [address] Albumin/Globulin [Mass ratio] 1.3 {ratio} Normal [facility] Comment on above: Performed By: #### P TT, CBC, PT, BNP, CMP, HS TROP, CK #### [address] ALP [Catalytic activity/Vol] 106 U/L High 34-104 [facility] Comment on above: Performed By: #### P TT, CBC, PT, BNP, CMP, HS TROP, CK #### [address] ALT [Catalytic activity/Vol] 9 U/L Normal 7-52 [facility] Comment on above: Performed By: #### P TT, CBC, PT, BNP, CMP, HS TROP, CK #### [address] Anion gap [Moles/Vol] 13.4 mmol/L Normal 6.0-15.0 [facility] Comment on above: Performed By: #### P TT, CBC, PT, BNP, CMP, HS TROP, CK #### [address] AST [Catalytic activity/Vol] 8 U/L Low 13-39 [facility] Comment on above: Performed By: #### P TT, CBC, PT, BNP, CMP, HS TROP, CK #### [address] Bilirubin [Mass/Vol] 0.4 mg/dL Normal 0.3-1.0 [facility] Comment on above: Performed By: #### P TT, CBC, PT, BNP, CMP, HS TROP, CK #### [address] Calcium [Mass/Vol] 8.5 mg/dL Low 8.6-10.3 [facility] Comment on above: Performed By: #### P TT, CBC, PT, BNP, CMP, HS TROP, CK #### [address] Chloride [Moles/Vol] 102 mmol/L Normal 98-107 [facility] Comment on above: Performed By: #### P TT, CBC, PT, BNP, CMP, HS TROP, CK #### [address] CO2 [Moles/Vol] 24.5 mmol/L Normal 21.0-31.0 [facility] Comment on above: Performed By: #### P TT, CBC, PT, BNP, CMP, HS TROP, CK #### [address] Creatinine [Mass/Vol] 1.82 mg/dL High 0.70-1.30 [facility] Comment on above: Performed By: #### P TT, CBC, PT, BNP, CMP, HS TROP, CK #### [address] Creatinine Clr Calc Pharmacy 54.64 Normal [facility] Comment on above: Result Comment: PERF ORMED BY: [place] [address] PATHOLOGIST CORPORATE AUDITOR CLIFFORD LOBATO M.D. Performed By: #### P TT, CBC, PT, BNP, CMP, HS TROP, CK #### [address] GFR/1.73 sq M.predicted MDRD (S/P/Bld) [Vol rate/Area] 42.789 mL/min/{1.73_m2} Normal [facility] Comment on above: Performed By: #### P TT, CBC, PT, BNP, CMP, HS TROP, CK #### [address] Globulin (S) [Mass/Vol] 3.1 g/dL Normal [facility] Comment on above: Performed By: #### P TT, CBC, PT, BNP, CMP, HS TROP, CK #### [facility] [address] Glucose [Mass/Vol] 302 mg/dL High 70-100 [facility] Comment on above: Result Comment: [place] Glucose Reference Range is dependent on time and content of last meal. Glucose of more than 200 mg/dL in a nonstressed, ambulatory subject supports the diagnosis of Diabetes Mellitus. ADA recommended reference range Performed By: #### P TT, CBC, PT, BNP, CMP, HS TROP, CK #### [address] Potassium [Moles/Vol] 3.9 mmol/L Normal 3.5-5.1 [facility] Comment on above: Performed By: #### P TT, CBC, PT, BNP, CMP, HS TROP, CK #### [address] Protein [Mass/Vol] 7.0 g/dL Normal 6.4-8.9 [facility] Comment on above: Performed By: #### P TT, CBC, PT, BNP, CMP, HS TROP, CK #### [place] [address] [place] Sodium [Moles/Vol] 136 mmol/L Normal 136-145 [facility] Comment on above: Performed By: #### P TT, CBC, PT, BNP, CMP, HS TROP, CK #### [place] [address] [place] Urea nitrogen [Mass/Vol] 16 mg/dL Normal 7-25 [facility] Comment on above: Performed By: #### P TT, CBC, PT, BNP, CMP, HS TROP, CK #### [place] [address] [place] Creatine Kinaseon 07-12-2023 CK [Catalytic activity/Vol] 55 U/L Normal 30-223 [facility] Comment on above: Performed By: #### P TT, CBC, PT, BNP, CMP, HS TROP, CK #### [place] [address] [place] Creatine kinase [Enzymatic a ctivity/volume] in Serum or PlasmaOrdered By: Nancy Wilson on 07-12-2023 CK [Catalytic activity/Vol] 55 U/L 30-223 [facility] Creatinine [Mass/volume] in Serum or PlasmaOrdered By: Nancy Wilson on 07-12-2023 Creatinine [Mass/Vol] 1.82 mg/dL 0.70-1.30 [facility] ECG 12 lead ECGon 07-12-2023 ECG 12 lead ECG [facility] [place] [address] Electrocardiograph Report Signed Patient: Solomon Feldman SR MR#: [id number] : 1965 Acct:[id number] Age/Sex: 57 / M ADM Date: 07/12/23 Loc: ER Room: Type: [facility] ER Attending Dr: Ordering Provider: [...] Nancy Wilson MD 01/26 0135 Normal [facility] Eosinophils Auto (Bld) [#/Vo l]Ordered By: Nancy Wilson on 07-12-2023 Eosinophils (Bld) [#/Vol] 0.3 10*3/uL 0.0-0.45 [facility] Eosinophils/100 WBC Auto (Bl d)Ordered By: Nancy Wilson on 07-12-2023 Eosinophils/100 WBC (Bld) 3.3 % . [facility] Erythrocyte distribution wid th Auto (RBC) [Ratio]Ordered By: Nancy Wilson on 07-12-2023 Erythrocyte distribution width (RBC) [Ratio] 17.1 % 12.0-14.8 [facility] Globulin Calc (S) [Mass/Vol] Ordered By: Nancy Wilson on 07-12-2023 Globulin (S) [Mass/Vol] 3.1 g/dL [facility] Glucose [Mass/volume] in Ser um or PlasmaOrdered By: Nancy Wilson on 07-12-2023 Glucose [Mass/Vol] 302 mg/dL 70-100 [facility] Comment on above: ADA recommended refe rence rangeRandom Glucose Reference Range is dependent on time and content of last meal. Glucose of more than 200 mg/dL in a nonstressed, ambulatory subject supports the diagnosis of Diabetes Mellitus. Hematocrit Auto (Bld) [Volum e fraction]Ordered By: Nancy Wilson on 07-12-2023 Hematocrit (Bld) [Volume fraction] 32.7 % 38.8-50.0 [facility] Hemoglobin [Mass/volume] in BloodOrdered By: Nancy Wilson on 07-12-2023 Hemoglobin (Bld) [Mass/Vol] 10.6 g/dL 13.0-17.0 [facility] INR in Platelet poor plasma by Coagulation assayOrdered By: Nancy Wilson on 07-12-2023 INR Coag (PPP) [Relative time] 1.1 {INR} [facility] Comment on above: INR Therapeutic [...] RBC Auto (Bld) [#/Vol] 9.5 10*3/uL 4.1-10.5 [facility] Lymphocytes Auto (Bld) [#/Vo l]Ordered By: Nancy Wilson on 07-12-2023 Lymphocytes (Bld) [#/Vol] 1.9 10*3/uL 1.00-4.8 [facility] Lymphocytes/100 WBC Auto (Bl d)Ordered By: Nancy Wilson on 07-12-2023 Lymphocytes/100 WBC (Bld) 20.0 % . [facility] MCH Auto (RBC) [Entitic mass ]Ordered By: Nancy Wilson on 07-12-2023 MCH (RBC) [Entitic mass] 22.8 pg 27.5-35.2 [facility] MCHC Auto (RBC) [Mass/Vol]Or dered By: Nancy Wilson on 07-12-2023 MCHC (RBC) [Mass/Vol] 32.4 g/dL 32.5-35.6 [facility] MCV Auto (RBC) [Entitic vol] Ordered By: Nancy Wilson on 07-12-2023 MCV (RBC) [Entitic vol] 70.6 fL 83.5-101 [facility] Monocyte distribution width [Entitic volume] in Blood by AutomatedOrdered By: Nancy Wilson on 07-12-2023 Monocyte distribution width Auto (Bld) [Entitic vol] 18.12 % 0.00-20.00 [facility] Monocytes Auto (Bld) [#/Vol] Ordered By: Nancy Wilson on 07-12-2023 Monocytes (Bld) [#/Vol] 1.0 10*3/uL 0.0-0.8 [facility] Monocytes/100 WBC Auto (Bld) Ordered By: Nancy Wilson on 07-12-2023 Monocytes/100 WBC (Bld) 10.2 % . [facility] Natriuretic peptide B [Mass/ Vol]Ordered By: Nancy Wilson on 07-12-2023 Natriuretic peptide B (Bld) [Mass/Vol] 34.0 pg/mL 5-100 [facility] Neutrophils Auto (Bld) [#/Vo l]Ordered By: Nancy Wilson on 07-12-2023 Neutrophils (Bld) [#/Vol] 6.2 10*3/uL 1.8-7.7 [facility] Neutrophils/100 WBC Auto (Bl d)Ordered By: Nancy Wilson on 07-12-2023 Neutrophils/100 WBC (Bld) 65.4 % . [facility] No Panel InformationOrdered By: Nancy Wilson on 07-12-2023 Estimated GFR (CKD-EPI) 42.789 mL/Min [facility] Creatinine Clearance (Chem 54.64 [facility] Nucleated erythrocytes [Pres ence] in Blood by Automated countOrdered By: Nancy Wilson on 07-12-2023 Nucleated RBC Auto Ql (Bld) 0.1 /100{WBC} 0-0.5 [facility] Partial Thromboplastin Timeo n 07-12-2023 aPTT Coag (Bld) [Time] 29.4 s Normal 25.1-36.5 Th e [facility] Comment on above: Result Comment: A he matocrit value greater than 55% may lead to inaccurate results in coagulation testing. Patients having hematocrit values >55% require a special collection tube for coagulation studies. Please contact the laboratory at [phone] for redraw instructions. PERFORMED BY: [facility] [address] [place] [address] PATHOLOGIST CORPORATE AUDITOR CLIFFORD LOBATO M.D. Performed By: #### P TT, CBC, PT, BNP, CMP, HS TROP, CK ####[facility] [id number] Platelet mean volume Auto (B ld) [Entitic vol]Ordered By: Nancy Wilson on 07-12-2023 Platelet mean volume (Bld) [Entitic vol] 9.1 fL 6.6-10.1 [facility] Platelets Auto (Bld) [#/Vol] Ordered By: Nancy Wilson on 07-12-2023 Platelets (Bld) [#/Vol] 233 10*3/uL 150-450 [facility] Potassium [Moles/volume] in Serum or PlasmaOrdered By: Nancy Wilson on 07-12-2023 Potassium [Moles/Vol] 3.9 mmol/L 3.5-5.1 [facility] Protein [Mass/volume] in Ser um or PlasmaOrdered By: Nancy Wilson on 07-12-2023 Protein [Mass/Vol] 7.0 g/dL 6.4-8.9 [facility] Prothrombin Time INRon 07-12 INR Coag (PPP) [Relative time] 1.1 {INR} Normal [facility] Comment on above: Result [...] PT, BNP, CMP, HS TROP, CK #### [facility] [address] [id number] [facility] PT Coag (PPP) [Time] 12.1 s Normal 9.0-12.9 [facility] Comment on above: Result Comment: A he matocrit value greater than 55% may lead to inaccurate results in coagulation testing. Patients having hematocrit values >55% require a special collection tube for coagulation studies. Please contact the laboratory at [phone] for redraw instructions. Performed By: #### P TT, CBC, PT, BNP, CMP, HS TROP, CK #### [facility] [address] [id number] [facility] Prothrombin time (PT)Ordered By: Nancy Wilson on 07-12-2023 PT Coag (PPP) [Time] 12.1 s 9.0-12.9 [facility] Comment on above: A hematocrit value g reater than 55% may lead to inaccurate results in coagulation testing. Patients having hematocrit values >55% require a special collection tube for coagulation studies. Please contact the laboratory at [phone] for redraw instructions. RBC Auto (Bld) [#/Vol]Ordere d By: Nancy Wilson on 07-12-2023 RBC (Bld) [#/Vol] 4.63 10*6/uL 3.90-5.60 [facility] Serum or plasma albumin/glob ulin mass ratioOrdered By: Nancy Wilson on 07-12-2023 Albumin/Globulin [Mass ratio] 1.3 {ratio} [facility] Serum or plasma anion gap de terminationOrdered By: Nancy Wilson on 07-12-2023 Anion gap [Moles/Vol] 13.4 mmol/L 6.0-15.0 [facility] Sodium [Moles/volume] in Ser um or PlasmaOrdered By: Nancy Wilson on 07-12-2023 Sodium [Moles/Vol] 136 mmol/L 136-145 [facility] Troponin I High Sensitivityo n 07-12-2023 Troponin I High Sensitivity 4.6 pg/mL Normal 0.0-20.0 [facility] Comment on above: Result Comment: PERF ORMED BY: [place] [address] PATHOLOGIST CORPORATE AUDITOR CLIFFORD LOBATO M.D. Performed By: #### P TT, CBC, PT, BNP, CMP, HS TROP, CK #### [address] Troponin I.cardiac [Mass/vol ume] in Serum or Plasma by Detection limit <= 0.01 ng/Ordered By: Nancy Wilson on 07-12-2023 Troponin I.cardiac DL <= 0.01 ng/mL [Mass/Vol] 4.6 pg/mL 0.0-20.0 [facility] Urea nitrogen [Mass/volume] in Serum or PlasmaOrdered By: Nancy Wilson on 07-12-2023 Urea nitrogen [Mass/Vol] 16 mg/dL 7-25 [facility] WBC Auto (Bld) [#/Vol]Ordere d By: Nancy Wilson on 07-12-2023 WBC (Bld) [#/Vol] 9.5 10*3/uL 4.1-10.5 [facility] XR chest 1V portableon 07-12 XR chest 1V portable [facility] Main [place] [address] [place] [address] XRay Report Signed Patient: Solomon Feldman SR MR#: [id number] : 1965 Acct:[id number] Age/Sex: 57 / M ADM Date: 07/12/23 [...] Sudeep Lind M.D.07/12/2023 5:08 PM Dictation Location: [facility]--05 Transcribed By: [facility] 07/12/231707 Dictated By: Sudeep Lind DO 07/12/231706 Signed By: 07/12/231707 Normal [facility] Patient Educationon 06-02- 23 [...] Follow these instructions at home: ? Take onif-qdm-qqfhquo and prescription medicines only as told by [...] the medicine (more content not included)... Normal [facility] Retail - Clinical Noteon Retail - Clinical Note [id number]#1.00TIFF Normal [facility] Urology Office/Clinic Noteon 06-02-2023 Urology Office/Clinic Note Chief Complaint S/p to Cysto HPI Staff Sp [place] [facility] [place]- [...] Contact Information SOLEDAD HERRERA, Yeyo Blum, URL [facility] [place] [id number]- Additional Instructions: 1 month w/ cath volumes [...] heart failure) (more content not included)... Normal [facility] Comment on above: Result Comment: Elec tronically Signed By: Yeyo ROWE MD\.br\Date and Time Signed: 06/02/23 12:16 EST\.br\Electronically Co-Signed By: Mattie Foster\.br\Date and Time Co-Signed: 06/02/23 12:04 EST Patient Educationon 05-03-20 Patient Education Normal [facility] Pathology Noteon 05-01-2023 Pathology Note [id number]#1.00TIFF Normal [facility] Lab Reportson 04-14-2023 Lab Reports [id number]#1.00TIFF Normal [facility] Operative Reporton Operative Report [id number]#1.00TIFF Normal [facility] Patient Correspondenceon Patient Correspondence [id number]#1.00TIFF Normal [facility] Lab Reportson 03-31-2023 Lab Reports [id number]#1.00TIFF Normal [facility] RAD - MISCon 03-31-2023 RAD - MISC [id number]#1.00TIFF Normal [facility] Patient Correspondenceon Patient Correspondence [id number]#1.00TIFF Normal [facility] Formson 03-23-2023 Forms [id number]#1.00TIFF Normal [facility] A1C HEMOGLOBINon 03-15-2023 HbA1c (Bld) [Mass fraction] 7.5 % [employer] Other HbA1c (Bld) [Mass fraction]o n 03-15-2023 A1C HEMOGLOBIN [facility] Other Lab Reportson 03-09-2023 Lab Reports [id number]#1.00TIFF [facility] Consultation Noteon 02-27-20 Consultation Note [id number]#1.00CD:12 7 [facility] Consent for Procedure/Surger yon 02-15-2023 Consent for Procedure/Surgery [id number]#1.00CD:12 7 [facility] Office Visit (Cardiology)on 02-15-2023 Follow-up visit [...] in adult Healthy Weight Tips; Status:Complete; Done: [id number] Patient Instructions Please bring all medicines, vitamins, [...] Sia HERRERA, (more content not included)... Normal [employer] Tobacco Screening.on 023 Fall risk assessment c) Not medically indicated -[facility] 250 DO Work Phone: Tobacco use status CP b) No -[facility] 250 DO Work Phone: Tobacco Screening. Yes [facility] 250 DO Work Phone: Consent for Procedure/Surger yon 02-14-2023 Consent for Procedure/Surgery [id number]#1.00CD:1 27 [facility] Consent for Procedure/Surgery [id number]#1.00CD:1 27 [facility] Consent for Treatmenton 02-03 Consent for Treatment [id number]#1.00CD:12 7 [facility] IntraOperative Documentson 0 02-14-2023 IntraOperative Documents [id number]#1.00CD:1 27 [facility] IntraOperative Documents [id number]#1.00CD:1 27 [facility] Main OR Intraoperative Recor don 02-14-2023 Main OR Intraoperative Record IntraOp Document Type FTURO Summary Primary Physician: Yeyo ROWE MD Finalized Date/Time: 02/14/23 10:18:58 Pt. Name: SOLOMON FELDMAN SR/Sex: 1965 Male Med Rec #: [id number] Physician: Yeyo ROWE MD Financial #: [id number] Pt. Type: O Room/Bed: / Admit/Disch: 02/14/23 [...] Nguyen CST Role Performed Surgeon - Primary Senior Logistics Manager - Primary Scrub - Primary Time [...] 09:45 Chandrika Martínez RN 02/14/23 10:18 Normal [facility] Main OR Preoperative Recordo n 02-14-2023 Main OR Preoperative Record Holding Area Document Type FTURO Summary Primary Physician: Yeyo ROWE MD Finalized Date/Time: 02/14/23 09:01:37 Pt. Name: MATTEO SOLOMON CHRISTIAN./Sex: 1965 Male Med Rec #: [id number] Physician: Yeyo ROWE MD Financial #: [id number] Pt. Type: O Room/Bed: / Admit/Disch: 02/14/23 [...] By: Sheri Bolivar RN 02/14/23 09:01 Normal [facility] Operative Reporton 3 Operative Report Patient: Joe [...] with antibiotic coverage, Follow up arranged. Normal [facility] Comment on above: Result Comment: Elec tronically [...] including vitamins, herbs, eye drops, creams, and kbjq-dcb-ekevlwj medicines. ? Any problems you or family [...] tells you to take them. ? Taking aqwt-gfm-qtgtvxp medicines, vitamins, herbs, and supplements. Surgery safety [...] health care (more content not included)... Normal [facility] Progress Note-Physicianon Progress Note-Physician Patient: SOLOMON FELDMAN [...] mg = 1 tab(s), PRN, SubLingual, q5min [place] 325 mg-5 mg oral tablet 1 tab(s), [...] 278.00 / Possible Fibromyalgia / SNOMED CT [id number]-1910-98N9-2 823074Z50U0 / Confirmed Restless leg / ICD-9-CM 333.94 / Confirmed Arthritis / SNOMED CT 33GA1947-4H9V-18L7-6A0A-Q IB0B006P794 / Confirmed Hyperlipidemia / SNOMED CT 37852776 / Confirmed Smoker / SNOMED CT S706BU8J-5494-06U7-1969-Q DP9B7732XX3 / Confirmed Added secondary to documentation in Social History. Asthma / SNOMED CT 492503511 / Confirmed COPD type A / SNOMED CT 758817506 / Confirmed Head ache / SNOMED CT 91543887 / Confirmed Heart attack / SNOMED CT 22854422 / Confirmed Heart disease / SNOMED CT 38165109 / Confirmed Heart murmur / SNOMED CT 146244998 / Confirmed Urinary retention / SNOMED CT 801211367 / Confirmed BPH with obstruction/lower urinary tract symptoms / SNOMED CT 3909063901 / Confirmed Orchitis / SNOMED CT 979413440 / Confirmed Gross hematuria / SNOMED CT 203024866 / Confirmed Tobacco use / SNOMED CT LUQL9934-3618-3J89-K4Y1-7 48762PN9RI1 / Confirmed Added secondary to social history documentation. Histories Past Medical History: Active Fibromyalgia ([id number]-0317-24K0- 5884624X83T8) Restless leg (333.94) Arthritis (53YM2757-8G2E-44C7-6U1W- KQT6Z511L978) Hyperlipidemia (00661581) Resolved HTN [Hypertension] (401.9): Resolved. NIDDM (250.00): Resolved. GERD [Gastroesophageal reflux disease] (530.81): Resolved. CHF (congestive heart failure) (M2917383-9K8G-1W8U-3M63- A058304N2Y06): Resolved. HI (myocardial infarction) (701N5RSF-41M0-4B1R-3S35- 00206P83G6IO): Resolved. Family History: Diabetes mellitus Mother Heart disease Mother Alcoholism Brother Drug addiction Brother Acute myocardial infarction Mother Grandparent Procedure history: Bilateral Eye Surgery. Comments: 07/10/2014 17:25 ALESHA Cormier RN, Kati bilateral cataracts with iol implants Bilateral Carpal Tunnel Surgery. cardiac stents. Appendectomy (680067314). Colonoscopy (037092302). Cataract extraction and insertion of intraocular lens (0897379471). Procedure on back (551571473). Social History Social & Psychosocial Habits Alcohol [...] procedure such (more content not included)... Normal [facility] Comment on above: Result Comment: Elec tronically Signed By: SOLEDAD HERRERA, Yeyo Blum\.br\Date and Time Signed: 02/14/23 09:58 EDT Consent for Treatmenton - Consent for Treatment [id number]#1.00CD:12 7 Normal [facility] Ambulatory Visit Summaryon 0 01-30-2023 Ambulatory Visit Summary MATTEO CHRISTIAN, SOLOMON Daniel :1965 Visit Date:01/30/2023 Ambulatory Visit Instructions Your Diagnosis Urinary retention Gross hematuria BPH with obstruction/lower urinary tract symptoms Orchitis Your Care Team Attending Physician - Yeyo ROWE MD Primary Care Physician - JENARO LYNCH DO This Is Your Medications List Contact prescribing physician if questions or concerns acetaminophen-hydrocodone ([place] 325 mg-5 mg oral tablet) albuterol (ProAir [...] Where: [facility] [address] , [place] [address] [phone] Medications What How Much When Instructions Unchanged acetaminophen-hydrocodone ([place] 325 mg-5 mg oral tablet) 1 Tablets [...] or vivian (more content not included)... Normal [facility] Patient Educationon 01-31-20 Patient Education Urology Urodynamic [...] including vitamins, herbs, eye drops, creams, and mann-lqr-jcretaz medicines. ? Whether you are or may [...] be (more content not included)... Normal [facility] Urology Office/Clinic Noteon 01-30-2023 Urology Office/Clinic [...] [facility] [address], [place] [phone] Additional Instructions: sched cysto/uros Patient Education Urodynamic [...] failure) GERD [Gastroesophageal reflux disease] HTN [Hypertension] HI (myocardial infarction) NIDDM Procedure/Surgical History Appendectomy, Bilateral [...] mg, BID (more content not included)... Normal [facility] Comment on above: Result Comment: Elec tronically Signed By: Saima Sutton\.br\Date and Time Signed: 01/30/23 11:38 EDT [facility] CARDIAC STRESS/REST INJE CTIONon 01-25-2023 [facility] CARDIAC STRESS/REST INJECTION Patient Name: SOLOMON FELDMAN STUDY: MYOCARDIAL PERFUSION STRESS TEST WITH EXERCISE CONVERTED TO LEXISCAN Performing facility: [facility], [address] [place] [address], Suite [facility][note 3], [address] Provider: Dolores Feldman RN, COTTON CHOPPER PCP: Dr. Jenaro Lynch Supervising provider: Pascale Arnold MD, [facility] INDICATION: Anginal equivalent CAD; HISTORY: Gender: M; Age: 57 y/o ; Height: 182.88 cm; Weight: 97.2312009 kg. High Cholesterol; CAD; Diabetes; HTN; Palpitations; Chest Pain; Quit smoking unknown years ago. COMPARISON: Previous nuclear testing completed at [facility]. ACCESSION NUMBER(S): [id number]; [id number]; [id number] ORDERING CLINICIAN: DOLORES FELDMAN TECHNIQUE: ONE DAY [...] study. Electronically signed by: PASCALE ARNOLD MD [facility] No Panel Informationon 01-25 Normal [facility] 250 DO Work Phone: [...] contact the office if new symptoms arise. 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 Normal [employer] Tobacco Screening.on 023 Adult depression screening assessment No [facility] 600 DO Work Phone: Tobacco use status [facility] b) No [facility] [employer] 600 DO Work Phone: Ambulatory Visit Summaryon 0 12-28-2022 Ambulatory Visit Summary SOLOMON FELDMAN SR :1965 Visit Date:12/28/2022 Ambulatory Visit Instructions Your Care Team Attending Physician - Yeyo ROWE MD Primary Care Physician - JENARO LYNCH DO This Is Your Medications List acetaminophen-hydrocodone ([place] 325 mg-5 mg oral tablet) albuterol (ProAir [...] HERRERA, Yeyo Blum Where: [facility] Normal [facility] Alanine aminotransferase [En zymatic activity/volume] in Serum or PlasmaOrdered By: Jenaro Lynch on 09-27-2022 ALT [Catalytic activity/Vol] 15 U/L 7-52 [facility] Albumin [Mass/volume] in Ser um or Plasma by Bromocresol green (BCG) dye binding methoOrdered By: Jenaro Lynch on 09-27-2022 Albumin BCG dye [Mass/Vol] 4.1 g/dL 3.5-5.7 [facility] Alkaline phosphatase [Enzyma tic activity/volume] in Serum or PlasmaOrdered By: Jenaro Lynch on 09-27-2022 ALP [Catalytic activity/Vol] 116 U/L 34-104 [facility] Aspartate aminotransferase [ Enzymatic activity/volume] in Serum or PlasmaOrdered By: Jenaro Lynch on 09-27-2022 AST [Catalytic activity/Vol] 15 U/L 13-39 [facility] Basophils Auto (Bld) [#/Vol] Ordered By: Jenaro Lynch on 09-27-2022 Basophils (Bld) [#/Vol] 0.1 10*3/uL 0.0-0.2 [facility] Basophils/100 WBC Auto (Bld) Ordered By: Jenaro Lynch on 09-27-2022 Basophils/100 WBC (Bld) 1.1 % . [facility] Bilirubin.total [Mass/volume ] in Serum or PlasmaOrdered By: Jenaro Lynch on 09-27-2022 Bilirubin [Mass/Vol] 0.4 mg/dL 0.3-1.0 [facility] Calcium [Mass/volume] in Ser um or PlasmaOrdered By: Jenaro Lynch on 09-27-2022 Calcium [Mass/Vol] 8.8 mg/dL 8.6-10.3 [facility] Carbon dioxide, total [Moles /volume] in Serum or PlasmaOrdered By: Jenaro Lynch on 09-27-2022 CO2 [Moles/Vol] 27.2 mmol/L 21.0-31.0 [facility] Chloride [Moles/volume] in S ilia or PlasmaOrdered By: Jenaro Lynch on 09-27-2022 Chloride [Moles/Vol] 99 mmol/L 98-107 [facility] Cholesterol [Mass/volume] in Serum or PlasmaOrdered By: Jenaro Lynch on 09-27-2022 Cholesterol [Mass/Vol] 104 mg/dL 140-200 [facility] Comment on above: Chol less than 200 m g/dl low riskChol 201-239 mg/dl borderline riskChol 240 mg/dl and greater high risk Cholesterol in LDL Calc [Mas s/Vol]Ordered By: Jenaro Lynch on 09-27-2022 Cholesterol in LDL [Mass/Vol] TNP [facility] Comment on above: Test not performed Cholesterol in LDL [Mass/vol ume] in Serum or PlasmaOrdered By: Jenaro Lynch on 09-27-2022 Cholesterol in LDL [Mass/Vol] 38 mg/dL 0-100 [facility] Comment on above: LDL ATP III CLASSIFI CATIONLDL less than 100 mg/dL OptimalLDL 100-129 mg/dL Near or above optimalLDL 130-159 mg/dL Borderline highLDL 160-189 mg/dL HighLDL greater than 189 mg/dL Very high Cholesterol in VLDL Calc [Ma ss/Vol]Ordered By: Jenaro Lynch on 09-27-2022 Cholesterol in VLDL [Mass/Vol] 99 mg/dL [facility] Creatinine [Mass/volume] in Serum or PlasmaOrdered By: Jenaro Lynch on 09-27-2022 Creatinine [Mass/Vol] 1.84 mg/dL 0.70-1.30 [facility] Eosinophils Auto (Bld) [#/Vo l]Ordered By: Jenaro Lynch on 09-27-2022 Eosinophils (Bld) [#/Vol] 0.7 10*3/uL 0.0-0.45 [facility] Eosinophils/100 WBC Auto (Bl d)Ordered By: Jenaro Lynch on 09-27-2022 Eosinophils/100 WBC (Bld) 5.9 % . [facility] Erythrocyte distribution wid th Auto (RBC) [Ratio]Ordered By: Jenaro Lynch on 09-27-2022 Erythrocyte distribution width (RBC) [Ratio] 16.0 % 12.0-14.8 [facility] Globulin Calc (S) [Mass/Vol] Ordered By: Jenaro Lynch on 09-27-2022 Globulin (S) [Mass/Vol] 2.9 g/dL [facility] Glucose [Mass/volume] in Ser um or PlasmaOrdered By: Jenaro Lynch on 09-27-2022 Glucose [Mass/Vol] 225 mg/dL 70-100 [facility] Comment on above: ADA recommended refe rence rangeRandom Glucose Reference Range is dependent on time and content of last meal. Glucose of more than 200 mg/dL in a nonstressed, ambulatory subject supports the diagnosis of Diabetes Mellitus. Hematocrit Auto (Bld) [Volum e fraction]Ordered By: Jenaro Lynch on 09-27-2022 Hematocrit (Bld) [Volume fraction] 41.0 % 38.8-50.0 [facility] Hemoglobin [Mass/volume] in BloodOrdered By: Jenaro Lynch on 09-27-2022 Hemoglobin (Bld) [Mass/Vol] 13.2 g/dL 13.0-17.0 [facility] Leukocytes [#/volume] correc jorge for nucleated erythrocytes in Blood by Automated counOrdered By: Jenaro Lynch on 09-27-2022 WBC corrected for nucl RBC Auto (Bld) [#/Vol] 12.4 10*3/uL 4.1-10.5 [facility] Lymphocytes Auto (Bld) [#/Vo l]Ordered By: Jenaro Lynch on 09-27-2022 Lymphocytes (Bld) [#/Vol] 2.3 10*3/uL 1.00-4.8 [facility] Lymphocytes/100 WBC Auto (Bl d)Ordered By: Jenaro Lynch on 09-27-2022 Lymphocytes/100 WBC (Bld) 18.2 % . [facility] MCH Auto (RBC) [Entitic mass ]Ordered By: Jenaro Lynch on 09-27-2022 MCH (RBC) [Entitic mass] 23.9 pg 27.5-35.2 [facility] MCHC Auto (RBC) [Mass/Vol]Or dered By: Jenaro Lynch on 09-27-2022 MCHC (RBC) [Mass/Vol] 32.2 g/dL 32.5-35.6 [facility] MCV Auto (RBC) [Entitic vol] Ordered By: Jenaro Lynch on 09-27-2022 MCV (RBC) [Entitic vol] 74.3 fL 83.5-101 [facility] Monocytes Auto (Bld) [#/Vol] Ordered By: Jenaro Lynch on 09-27-2022 Monocytes (Bld) [#/Vol] 1.0 10*3/uL 0.0-0.8 [facility] [facility] Monocytes/100 WBC Auto (Bld) Ordered By: Jenaro Lynch on 09-27-2022 Monocytes/100 WBC (Bld) 7.9 % . [facility] Neutrophils Auto (Bld) [#/Vo l]Ordered By: Jenaro Lynch on 09-27-2022 Neutrophils (Bld) [#/Vol] 8.3 10*3/uL 1.8-7.7 [facility] Neutrophils/100 WBC Auto (Bl d)Ordered By: Jenaro Lynch on 09-27-2022 Neutrophils/100 WBC (Bld) 66.9 % . [facility] No Panel InformationOrdered By: Jenaro Lynch on 09-27-2022 Estimated GFR (CKD-EPI) 42.232 mL/Min [facility] Creatinine Clearance (Chem N/A [facility] Nucleated erythrocytes [Pres ence] in Blood by Automated countOrdered By: Jenaro Lynch on 09-27-2022 Nucleated RBC Auto Ql (Bld) 0.1 /100{WBC} 0-0.5 [facility] Platelet mean volume Auto (B ld) [Entitic vol]Ordered By: Jenaro Lynch on 09-27-2022 Platelet mean volume (Bld) [Entitic vol] 9.1 fL 6.6-10.1 [facility] Platelets Auto (Bld) [#/Vol] Ordered By: Jenaro Lynch on 09-27-2022 Platelets (Bld) [#/Vol] 209 10*3/uL 150-450 [facility] Potassium [Moles/volume] in Serum or PlasmaOrdered By: Jenaro Lynch on 09-27-2022 Potassium [Moles/Vol] 4.3 mmol/L 3.5-5.1 [facility] Protein [Mass/volume] in Ser um or PlasmaOrdered By: Jenaro Lynch on 09-27-2022 Protein [Mass/Vol] 7.0 g/dL 6.4-8.9 [facility] RBC Auto (Bld) [#/Vol]Ordere d By: Jenaro Lynch on 09-27-2022 RBC (Bld) [#/Vol] 5.52 10*6/uL 3.90-5.60 [facility] Serum or plasma albumin/glob ulin mass ratioOrdered By: Jenaro Lynch on 09-27-2022 Albumin/Globulin [Mass ratio] 1.4 {ratio} [facility] Serum or plasma anion gap de terminationOrdered By: Jenaro Lynch on 09-27-2022 Anion gap [Moles/Vol] 14.1 mmol/L 6.0-15.0 [facility] Serum or plasma high density lipoprotein (HDL) cholesterol measurementOrdered By: Jenaro Lynch on 09-27-2022 Cholesterol in HDL [Mass/Vol] 21 mg/dL 29-71 [facility] Comment on above: HDL CHOL ATP-III CLA SSIFICATION Cardiovascular RiskHDL > or equal to 60 mg/dL LOWHDL < 40 mg/dL HIGH Serum or plasma total choles terol/high density lipoprotein (HDL) cholesterol mass ratOrdered By: Jenaro Lynch on 09-27-2022 Cholesterol.total/Chol esterol in HDL [Mass ratio] 5.0 {ratio} <5.0 [facility] Sodium [Moles/volume] in Ser um or PlasmaOrdered By: Jenaro Lynch on 09-27-2022 Sodium [Moles/Vol] 136 mmol/L 136-145 [facility] Thyrotropin [Units/volume] i n Serum or PlasmaOrdered By: Jenaro Lynch on 09-27-2022 TSH Qn 3.62 m[IU]/L 0.45-5.33 [facility] Triglyceride [Mass/volume] i n Serum or PlasmaOrdered By: Jenaro Lynch on 09-27-2022 Triglyceride [Mass/Vol] 497 mg/dL 0-149 [facility] Comment on above: If the [...] on 09-27-2022 Urate [Mass/Vol] 6.2 mg/dL 2.4-7.6 [facility] Urea nitrogen [Mass/volume] in Serum or PlasmaOrdered By: Jenaro Lynch on 09-27-2022 Urea nitrogen [Mass/Vol] 15 mg/dL 7-25 [facility] WBC Auto (Bld) [#/Vol]Ordere d By: Jenaro Lynch on 09-27-2022 WBC (Bld) [#/Vol] 12.4 10*3/uL 4.1-10.5 [facility] A1C HEMOGLOBINon 02-15-2022 HbA1c (Bld) [Mass fraction] % [employer] Other HbA1c (Bld) [Mass fraction]o n 02-15-2022 A1C HEMOGLOBIN [employer] Other Tobacco Screening.on 022 Adult depression screening assessment No [facility] 250 DO Work Phone: Tobacco use status [facility] b) No [facility] DO Work Phone: A1C HEMOGLOBINon 07-27-2021 HbA1c (Bld) [Mass fraction] 11.8 % [employer] Other HbA1c (Bld) [Mass fraction]o n 07-27-2021 A1C HEMOGLOBIN [facility] Other Vital Signs Date Time Vital Sign Value Performing Clinician Facility 10-24-2023 10:56-0400 Body height 182.9 cm Raulito Inman MD Work Phone: [facility] 10-24-2023 10:56-0400 Diastolic blood pressure 86 mm[Hg] Raulito Inman MD Work Phone: [facility] 10-24-2023 10:56-0400 Heart rate 104 /min Raulito Inman MD Work Phone: [facility] 10-24-2023 10:56-0400 Systolic blood pressure 134 mm[Hg] Raulito Inman MD Work Phone: [facility] 10-23-2023 09:37-0400 Blood Pressure Location Padmini Simon [facility] 10-23-2023 09:37-0400 Diastolic blood pressure 82 mm[Hg] Padmini Montes [facility] 10-23-2023 09:37-0400 Heart rate 107 /min Padmini Montes [facility] 10-23-2023 09:37-0400 SaO2% (BldA) [Mass fraction] 98 % Padmini Montes [facility] 10-23-2023 09:37-0400 Systolic blood pressure 130 mm[Hg] Padmini Montes [facility] 07-31-2023 12:00-0500 Diastolic blood pressure 63 mm[Hg] DO Jenaro Lynch Work Phone: [facility] 07-31-2023 12:00-0500 Heart rate 75 /min DO Jenaro Jetts Work Phone: [facility] 07-31-2023 12:00-0500 Systolic blood pressure 108 mm[Hg] DO Jenarogorge Fraustos Work Phone: [facility] 07-31-2023 08:33-0500 Respiratory rate 18 /min DO Jenaro Jetts Work Phone: [facility] 07-12-2023 18:03-0500 Diastolic blood pressure 73 mm[Hg] DO Jenaro Kuns Work Phone: [facility] 07-12-2023 18:03-0500 Heart rate 76 /min DO Jenaro Jetts Work Phone: [facility] 07-12-2023 18:03-0500 Respiratory rate 20 /min DO Jenarogorge Fraustos Work Phone: [facility] 07-12-2023 18:03-0500 SaO2% (BldA) [Mass fraction] 98 % DO Jenaro Jetts Work Phone: [facility] 07-12-2023 18:03-0500 Systolic blood pressure 125 mm[Hg] DO Jenaro Jetts Work Phone: [facility] 07-12-2023 16:15-0500 Body height 182.88 cm DO Jenaro Lynch Work Phone: [facility] 07-12-2023 16:15-0500 Body temperature 98.9 [degF] DO Jenaro Lynch Work Phone: [facility] 07-12-2023 16:15-0500 Body weight 99.25 kg DO Jenaro Lynch Work Phone: [facility] 06-02-2023 10:56-0500 Blood Pressure Location Yeyo ROWE [facility] 06-02-2023 10:56-0500 Body temperature 96.98 [degF] Yeyo ROWE [facility] 06-02-2023 10:56-0500 Diastolic blood pressure 84 mm[Hg] Yeyo ROWE [facility] 06-02-2023 10:56-0500 Heart rate 68 /min Yeyo ROWE [facility] 06-02-2023 10:56-0500 Systolic blood pressure 124 mm[Hg] Yeyo ROWE [facility] 04-06-2023 13:15-0400 Body height 180.34 cm Jenaro Lynch Other [employer] Other 04-06-2023 13:15-0400 Body mass index (BMI) [Ratio] 29.43 kg/m2 Jenaro Lynch Other [employer] Other 04-06-2023 13:15-0400 Body weight 95.71 kg Jenaro Lynch Other [employer] Other 04-06-2023 13:15-0400 Diastolic blood pressure 70 mm[Hg] Jenaro Lynch Other [employer] Other 04-06-2023 13:15-0400 Respiratory rate 18 /min Jenaro Lynch Other [employer] Other 04-06-2023 13:15-0400 SaO2% (BldA) [Mass fraction] 97 % Jenaro Lynch Other [employer] Other 04-06-2023 13:15-0400 Systolic blood pressure 100 mm[Hg] Jenaro Lynch Other [employer] Other 03-15-2023 08:30-0400 Body height 180.34 cm Jenaro Lynch Other [employer] Other 03-15-2023 08:30-0400 Body mass index (BMI) [Ratio] 29.01 kg/m2 Jenaro Jettjoe Other [employer] Other 03-15-2023 08:30-0400 Body weight 94.35 kg Jenaro Lynch Other [employer] Other 03-15-2023 08:30-0400 Diastolic blood pressure 62 mm[Hg] Jenaro Lynch Other [employer] Other 03-15-2023 08:30-0400 Respiratory rate 16 /min Jenaro Lynch Other [employer] Other 03-15-2023 08:30-0400 SaO2% (BldA) [Mass fraction] 97 % Jenaro Lynch Other [employer] Other 03-15-2023 08:30-0400 Systolic blood pressure 88 mm[Hg] Jenaro Lynch Other [employer] Other 02-15-2023 10:04-0400 Body height 182.88 cm Jenaro Lynch Work Phone: [facility] [employer] 250 DO Work Phone: 02-15-2023 10:04-0400 Body mass index (BMI) [Ratio] 28.62 kg/m2 Jenaro Lynch Work Phone: [facility] [employer] 250 DO Work Phone: 02-15-2023 10:04-0400 Body surface area Derived from formula 2.18 m2 Jenaro Lynch Work Phone: [facility] [facility] DO Work Phone: 02-15-2023 10:04-0400 Body weight 95.71 kg Jenaro Lynch Work Phone: [facility] 250 DO Work Phone: 02-15-2023 10:04-0400 Diastolic blood pressure 70 mm[Hg] Jenaro Lynch Work Phone: [facility] 250 DO Work Phone: 02-15-2023 10:04-0400 Heart rate 76 /min Jenaro Lynch Work Phone: [facility] 250 DO Work Phone: 02-15-2023 10:04-0400 Systolic blood pressure 102 mm[Hg] Jenaro Lynch Work Phone: [facility] 250 DO Work Phone: 01-30-2023 10:23-0400 Blood Pressure Location Yeyo ROWE [facility] 01-30-2023 10:23-0400 Diastolic blood pressure 74 mm[Hg] Yeyo ROWE [facility] 01-30-2023 10:23-0400 Heart rate 68 /min Yeyo ROWE [facility] 01-30-2023 10:23-0400 Respiratory rate 16 /min Yeyo ROWE [facility] 01-30-2023 10:23-0400 Systolic blood pressure 130 mm[Hg] Yeyo ROWE [facility] 01-11-2023 15:08-0400 Body height 180.34 cm Jenaro Lynch Work Phone: [facility] 600 DO Work Phone: 01-11-2023 15:08-0400 Body mass index (BMI) [Ratio] 30.13 kg/m2 Jenaro Mari Lynch Work Phone: [facility] [address] DO Work Phone: 01-11-2023 15:08-0400 Body surface area Derived from formula 2.18 m2 Jenaro Lynch Work Phone: [facility] [address] DO Work Phone: 01-11-2023 15:08-0400 Body weight 97.98 kg Jenaro Fraustojoe Work Phone: [facility] [address] DO Work Phone: 01-11-2023 15:08-0400 Diastolic blood pressure 86 mm[Hg] Jenaro Fraustojoe Work Phone: [facility] [employer] 600 DO Work Phone: 01-11-2023 15:08-0400 Heart rate 74 /min Jenaro Fraustojoe Work Phone: [facility] [employer] 600 DO Work Phone: 01-11-2023 15:08-0400 Systolic blood pressure 122 mm[Hg] Jenaro Lynch Work Phone: [facility] [employer] 600 DO Work Phone: 12-01-2022 12:45-0400 Body height 180.34 cm Jenaro Lynch Other [facility] [employer] Other 12-01-2022 12:45-0400 Body mass index (BMI) [Ratio] 29.73 kg/m2 Jenaro Lynch Other [facility] [employer] Other 12-01-2022 12:45-0400 Body weight 96.71 kg Jenaro Lynch Other [facility] [employer] Other 12-01-2022 12:45-0400 Diastolic blood pressure 70 mm[Hg] Jenaro Lynch Other [employer] Other 12-01-2022 12:45-0400 Respiratory rate 18 /min Jenaro Lynch Other [employer] Other 12-01-2022 12:45-0400 SaO2% (BldA) [Mass fraction] 94 % Jenaro Lynch Other [employer] Other 12-01-2022 12:45-0400 Systolic blood pressure 122 mm[Hg] Jenaro Lynch Other [employer] Other 11-23-2022 11:38-0400 Blood Pressure Location Yeyo Winshuttle [facility] 11-23-2022 11:38-0400 Diastolic blood pressure 85 mm[Hg] Yeyo Winshuttle [facility] 11-23-2022 11:38-0400 Heart rate 76 /min Yeyo Winshuttle [facility] 11-23-2022 11:38-0400 Systolic blood pressure 130 mm[Hg] Yeyo ROWE [facility] 07-04-2022 10:30-0500 Body height 180.34 cm Jenaro Lynch Other [employer] Other 07-04-2022 10:30-0500 Body mass index (BMI) [Ratio] 29.43 kg/m2 Jenaro Lynch Other [employer] Other 07-04-2022 10:30-0500 Body weight 95.71 kg Jenaro Lynch Other [employer] Other 07-04-2022 10:30-0500 Diastolic blood pressure 86 mm[Hg] eJnaro Lynch Other [employer] Other 07-04-2022 10:30-0500 Respiratory rate 16 /min Jenaro Lynch Other [employer] Other 07-04-2022 10:30-0500 Systolic blood pressure 146 mm[Hg] Jenaro Lynch Other [employer] Other 02-15-2022 13:45-0400 Body height 180.34 cm Jenaro Lynch Other [employer] Other 02-15-2022 13:45-0400 Body mass index (BMI) [Ratio] 30.12 kg/m2 Jenaro Lynch Other [employer] Other 02-15-2022 13:45-0400 Body weight 97.98 kg Jenaro Lynch Other [employer] Other 02-15-2022 13:45-0400 Diastolic blood pressure 62 mm[Hg] Jenaro Lynch Other [employer] Other 02-15-2022 13:45-0400 Respiratory rate 16 /min Jenaro Lynch Other [employer] Other 02-15-2022 13:45-0400 SaO2% (BldA) [Mass fraction] 96 % Jenaro Fraustojoe Other [employer] Other 02-15-2022 13:45-0400 Systolic blood pressure 100 mm[Hg] Jenaro Lynch Other [facility] [employer] Other 10-26-2021 10:01-0400 Body height 180.34 cm Jenaro Lynch Work Phone: [facility] 250 DO Work Phone: 10-26-2021 10:01-0400 Body mass index (BMI) [Ratio] 29.99 kg/m2 Jenaro Lynch Work Phone: [facility] 250 DO Work Phone: 10-26-2021 10:01-0400 Body surface area Derived from formula 2.17 m2 Jenaro Lynch Work Phone: [facility] 250 DO Work Phone: 10-26-2021 10:01-0400 Body weight 97.52 kg Jenaro Lynch Work Phone: [facility] 250 DO Work Phone: 10-26-2021 10:01-0400 Diastolic blood pressure 70 mm[Hg] Jenaro Lynch Work Phone: [facility] 250 DO Work Phone: 10-26-2021 10:01-0400 Heart rate 68 /min Jenaro Lynch Work Phone: [facility] 250 DO Work Phone: 10-26-2021 10:01-0400 Systolic blood pressure 104 mm[Hg] Jenaro Lynch Work Phone: [facility] 250 DO Work Phone: 10-19-2021 12:20-0400 Body height 180.34 cm Amina Fagan Other [employer] [facility] [employer] Other 10-19-2021 12:20-0400 Body mass index (BMI) [Ratio] 30.65 kg/m2 Amina Fagan Other [employer] Other 10-19-2021 12:20-0400 Body temperature 96.8 [degF] Amina Kinseys Other [employer] Other 10-19-2021 12:20-0400 Body weight 99.7 kg Amina Fagan Other [employer] Other 10-19-2021 12:20-0400 Diastolic blood pressure 71 mm[Hg] Amina Kinseys Other [employer] Other 10-19-2021 12:20-0400 Respiratory rate 18 /min Amina Kinseys Other [employer] Other 10-19-2021 12:20-0400 SaO2% (BldA) [Mass fraction] 98 % Amina Fagan Other [employer] Other 10-19-2021 12:20-0400 Systolic blood pressure 111 mm[Hg] Amina Kinseys Other [employer] Other 07-27-2021 14:00-0500 Body height 180.34 cm Jenaro Lynch Other [employer] Other 07-27-2021 14:00-0500 Body mass index (BMI) [Ratio] 30.4 kg/m2 Jenaro Lynch Other [employer] Other 07-27-2021 14:00-0500 Body weight 98.88 kg Jenaro Lynch Other [employer] Other 07-27-2021 14:00-0500 Diastolic blood pressure 76 mm[Hg] Jenaro Lynch Other [employer] Other 07-27-2021 14:00-0500 Respiratory rate 18 /min Jenaro Lynch Other [employer] Other 07-27-2021 14:00-0500 SaO2% (BldA) [Mass fraction] 98 % Jenarogorge Lynch Other [employer] Other 07-27-2021 14:00-0500 Systolic blood pressure 112 mm[Hg] Jenarogorge Lynch Other [employer] Other Encounters Encounter Date Encounter Type Care Provider Facility Start: 02-12-2024 ambulatory Yeyo Ley ty:[facility] Start: 11-23-2023 End: 11-23-2023 ambulatory [facility] Start: 11-15-2023 End: 11-15-2023 ambulatory MAAME Hooker [facility] Start: 11-14-2023 End: 11-14-2023 Evaluation and management of inpatient [facility] Start: 11-07-2023 End: 11-14-2023 Evaluation and management of inpatient [facility] Start: 11-07-2023 End: 11-14-2023 Evaluation and management of inpatient [facility] Start: 10-24-2023 End: 10-24-2023 ambulatory [facility] Start: 10-24-2023 End: 10-24-2023 Encounter for preprocedural cardiovascular examination [facility] Start: 10-24-2023 End: 10-24-2023 Office outpatient visit 25 minutes Raulito Inman MD Work Phone: [facility] Comment on above: History of PTCA; Hyperlipidemia, unspecified hyperlipidemia type; Encounter for pre-operative cardiovascular clearance; Former smoker Start: 10-24-2023 End: 10-24-2023 Patient encounter status Raulito Inman MD Work Phone: [facility] Work Phone: Start: 10-23-2023 End: 10-23-2023 ambulatory Padmini Montes [place] Start: 10-23-2023 End: 10-23-2023 Patient encounter procedure Padmini Montes [facility] Start: 10-19-2023 End: 10-20-2023 ambulatory Padmini Montes [place] [place] Start: 10-19-2023 ambulatory Padmini Montes Facili ty:[facility] Start: 10-19-2023 End: 10-19-2023 Patient encounter procedure Padmini Montes [facility] Start: 10-18-2023 End: 10-18-2023 ambulatory PADMINI MONTES [facility] Start: 10-06-2023 Non-patient / Non-visit DO Phillip Lynch Work Phone: [facility] Work Phone: Start: 10-05-2023 End: 10-05-2023 ambulatory Paula Elias Facility:[facility] Start: 10-05-2023 End: 10-05-2023 ambulatory DO Jenaro Lynch Work Phone: [facility] Work Phone: Start: 10-05-2023 End: 10-05-2023 Departed Referred DO Jenaro Lynch Work Phone: [facility] [place] [facility] Start: 10-05-2023 Non-patient / Non-visit DO Phillip an Kuns Work Phone: [facility] Work Phone: Start: 10-04-2023 Non-patient / Non-visit DO Phillip an Kuns Work Phone: [facility] Work Phone: Start: 10-03-2023 Non-patient / Non-visit DO Phillip an Kuns Work Phone: [facility] Work Phone: Start: 10-02-2023 End: 10-02-2023 ambulatory Paula Hooker [facility] Facility:[facility] Start: 10-02-2023 End: 10-02-2023 ambulatory DO Jenaro Kuns Work Phone: [facility] Work Phone: Start: 10-02-2023 End: 10-02-2023 Departed Referred DO Jenaro Kuns Work Phone: [facility] Start: 10-02-2023 Non-patient / Non-visit DO Phillip an Kuns Work Phone: [facility] Work Phone: Start: 10-01-2023 Non-patient / Non-visit DO Phillip an Kuns Work Phone: [facility] Work Phone: Start: 09-30-2023 Non-patient / Non-visit DO Phillip an Kuns Work Phone: [facility] Work Phone: Start: 09-27-2023 Non-patient / Non-visit DO Phillip an Kuns Work Phone: [facility] Work Phone: Start: 09-21-2023 End: 09-21-2023 ambulatory Jenaro Kuns Facility:[facility] Start: 09-21-2023 End: 09-21-2023 ambulatory DO Jenaro Kuns Work Phone: [facility] Work Phone: Start: 09-21-2023 End: 09-21-2023 Departed Referred DO Jenaro Kuns Work Phone: [facility] Start: 09-21-2023 Non-patient / Non-visit DO Phillip an Kuns Work Phone: [facility] Work Phone: Start: 09-18-2023 Non-patient / Non-visit DO Phillip an Kuns Work Phone: [facility] Work Phone: Start: 09-08-2023 End: 09-08-2023 ambulatory Yeyo ROWE Facility:[facility] Start: 09-08-2023 End: 09-08-2023 Patient encounter procedure Yeyo ROWE [facility] Start: 08-10-2023 Non-patient / Non-visit DO Phillip an Kuns Work Phone: [facility] Work Phone: Start: 08-08-2023 Non-patient / Non-visit DO Phillip an Kuns Work Phone: [facility]ician [facility] Work Phone: Start: 08-07-2023 Non-patient / Non-visit DO Phillip an Kuns Work Phone: [facility] Physician [facility] Work Phone: Start: 08-06-2023 Non-patient / Non-visit DO Phillip an Kuns Work Phone: [facility] Physician [facility] Work Phone: Start: 08-05-2023 Non-patient / Non-visit DO Phillip an Jetts Work Phone: [facility] Work Phone: Start: 08-04-2023 Non-patient / Non-visit DO Phillip an Kuns Work Phone: [facility] Work Phone: Start: 08-03-2023 Non-patient / Non-visit DO Phillip an Kuns Work Phone: [facility] Phys[facility] Work Phone: Start: 07-31-2023 ambulatory Jenaro Lynch Facility:[facility] Start: 07-31-2023 Registered Recurring DO Jenaro Lynch Work Phone: [facility]Infusion Therapy - O/P Work Phone: Start: 07-26-2023 Non-patient / Non-visit DO Phillip groge Fraustos Work Phone: [facility] Physician [facility] Work Phone: Start: 07-12-2023 End: 07-12-2023 Emergency department patient visit Jenaro Lynch Facility:[facility] Start: 07-12-2023 End: 07-12-2023 Emergency department patient visit DO Jenarogorge Fraustojoe Work Phone: [facility]-Emergency Room Work Phone: Start: 07-07-2023 End: 07-07-2023 ambulatory Jenaro Lynch Other [facility] [employer] Other Start: 07-07-2023 Telephone encounter Jenaro Lynch [facility] [place] Start: 07-03-2023 End: 07-03-2023 ambulatory Yeyo ROWE Facility: [facility] Start: 06-26-2023 End: 06-26-2023 ambulatory Jenaro Lynch Other [employer] Other Start: 06-26-2023 Telephone encounter Jenaro Lynch [facility] Start: 06-02-2023 End: 06-02-2023 ambulatory Yeyo ROWE Facility:[facility] Start: 06-02-2023 End: 06-02-2023 Patient encounter procedure Yeyo ROWE [facility] Start: 05-16-2023 End: 05-16-2023 ambulatory Jenaro Lynch Other [employer] Other Start: 05-16-2023 Telephone encounter Jenaro Lynch [facility] Start: 05-03-2023 End: 05-03-2023 ambulatory Yeyo ROWE Facility: [facility] Start: 05-03-2023 End: 05-03-2023 Patient encounter procedure Yeyo ROWE [facility] Start: 04-28-2023 End: 04-28-2023 ambulatory Jenaro Lynch Other [employer] Other Start: 04-28-2023 Telephone encounter Jenaro Lynch [facility] Start: 04-18-2023 End: 04-18-2023 ambulatory Yeyo ROWE Facility:[facility] [place] Start: 04-18-2023 End: 04-18-2023 Patient encounter procedure Yeyo ROWE [facility] Start: 04-17-2023 ambulatory Yeyo ROWE Facili ty:[facility] [place] Start: 04-13-2023 End: 04-13-2023 ambulatory Yeyo ROWE Facility:[id number] Start: 04-11-2023 End: 04-11-2023 ambulatory Jenaro Lynch Other [employer] Other Start: 04-11-2023 Telephone encounter Jenaro Lynch [facility] [place] Start: 04-06-2023 End: 04-06-2023 ambulatory Jenaro Lynch Other [employer] Other Start: 04-06-2023 Encounter for other preprocedural examination [facility] Start: 04-06-2023 Office outpatient vi sit 25 minutes Jenaro Lynch [facility] Start: 03-28-2023 End: 03-28-2023 ambulatory Jenaro Lynch Other [employer] Other Start: 03-28-2023 Telephone encounter Jenaro Lynch [facility] Start: 03-20-2023 ambulatory Yeyo ROWE Facili ty:[facility] [place] Start: 03-15-2023 End: 03-15-2023 ambulatory Yeyo ROWE [facility] [employer] Other Start: 03-15-2023 Office outpatient vi sit 25 minutes Jenaro Lynch [facility] Start: 03-10-2023 End: 03-10-2023 ambulatory Jenarogorge Lynch Other [employer] Other Start: 03-10-2023 Telephone encounter Jenarogorge Lynch [facility] Start: 02-15-2023 Office outpatient vi sit 15 minutes Jenaro Lynch Work Phone: [facility] 250 DO Work Phone: Start: 02-15-2023 ambulatory Dolores Feldman Facility:1 [id number] Start: 02-14-2023 End: 02-14-2023 ambulatory Yeyo ROWE [place] [place]: 02-14-2023 End: 02-14-2023 Patient encounter procedure Yeyo ROWE [facility] Start: 02-08-2023 End: 02-08-2023 ambulatory Yeyo ROWE [place] [place] Start: 02-08-2023 End: 02-08-2023 Patient encounter procedure Yeyo ROWE [facility] Start: 01-30-2023 End: 01-30-2023 ambulatory Yeyo ROWE Facility:[facility] [place] Start: 01-30-2023 End: 01-30-2023 Patient encounter procedure Yeyo ROWE [facility] [place] Start: 01-25-[address] Jenaro Lynch Facility:[id number] Start: 01-17-2023 End: 01-17-2023 ambulatory eJnaro Lynch Other [employer] Other Start: 01-17-2023 Telephone encounter Jenaro Lynch [facility] Start: 01-11-2023 Office outpatient vi sit 25 minutes Jenaro Lynch Work Phone: [place] [address] DO Work Phone: Start: 01-11-2023 ambulatory Dolores Feldman Facility:1 [id number] Start: 12-28-2022 End: 12-28-2022 ambulatory Yeyo ROWE Facility:[facility] [place] Start: 12-28-2022 End: 12-28-2022 Patient encounter procedure Yeyo ROWE [facility] [place] Start: 12-21-2022 ambulatory Yeyo ROWE Facili ty:[facility] [place] Start: 12-01-2022 End: 12-01-2022 ambulatory Jenaro Lynch Other [employer] Other Start: 12-01-2022 Office outpatient vi sit 25 minutes Jenaro Lynch [facility] [place] Start: 11-30-2022 ambulatory Yeyo ROWE Facility : [place] Start: 11-23-2022 End: 11-23-2022 Patient encounter procedure Yeyo ROWE [facility] [place] Start: 10-07-2022 End: 10-07-2022 ambulatory Jenaro Lynch Other [employer] Other Start: 10-07-2022 Telephone encounter Jenaro Lynch [facility] [place] Start: 09-27-2022 End: 09-27-2022 ambulatory DO Jenaro Lynch Work Phone: [facility] Work Phone: Start: 09-27-2022 End: 09-27-2022 Patient encounter procedure DO Jenaro Lynch Work Phone: [facility] [place] Work Phone: Start: 09-21-2022 End: 09-21-2022 ambulatory Jenaro Lynch Other [employer] Other Start: 09-21-2022 Telephone encounter Jenaro Lynch [facility] [place] Start: 09-14-2022 End: 09-14-2022 ambulatory Jenaro Lynch Other [employer] Other Start: 09-14-2022 Telephone encounter Jenaro Lynch [facility] [place] Start: 09-02-2022 End: 09-02-2022 Patient encounter procedure DO Jenaro Lynch Work Phone: [facility] [place] Work Phone: Start: 08-25-2022 End: 08-25-2022 ambulatory Tona Mapus Other [employer] Other Start: 08-25-2022 Telephone encounter Tondra Mapus [facility] Start: 08-22-2022 End: 08-22-2022 ambulatory Jenaro Lynch Other [employer] Other Start: 08-22-2022 Telephone encounter Jenaro Lynch [facility] [place] Start: 08-05-2022 End: 08-05-2022 ambulatory Jenaro Lynch Other [employer] Other Start: 08-05-2022 Telephone encounter Jenaro Lynch [facility] [place] Start: 08-04-2022 End: 08-04-2022 ambulatory Jenaro Lynch Other [employer] Other Start: 08-04-2022 Telephone encounter Jenaro Lynch [facility] [place] Start: 07-28-2022 End: 07-28-2022 ambulatory Jenaro Lynch Other [employer] Other Start: 07-28-2022 Telephone encounter Jenaro Lynch [facility] Start: 07-25-2022 End: 07-25-2022 ambulatory Jenaro Lynch Other [employer] Other Start: 07-25-2022 Nursing evaluation o f patient and report Jenaro Lynch [facility] [place] Start: 07-19-2022 End: 07-19-2022 ambulatory Jenaro Lynch Other [employer] Other Start: 07-19-2022 Telephone encounter Jenaro Lynch [facility] [place] Start: 07-15-2022 End: 07-15-2022 ambulatory Jenaro Lynch Other [employer] Other Start: 07-15-2022 Telephone encounter Jenaro Lynch [facility] [place] Start: 07-13-2022 End: 07-13-2022 ambulatory Jenaro Lynch Other [employer] Other Start: 07-13-2022 Nursing evaluation o f patient and report Jenaro Lynch [facility] [place] Start: 07-12-[address] [facility] Facility: Start: 07-05-2022 End: 07-05-2022 ambulatory Jenaro Lynch Other [employer] Other Start: 07-05-2022 Telephone encounter Jenaro Lynch [facility] [place] Start: 07-05-2022 Rx Renewal Jenaro Lynch Work Phone: [facility] 250 DO Work Phone: Start: 07-04-2022 End: 07-04-2022 ambulatory Jenaro Lynch Other [employer] Other Start: 07-04-2022 Office outpatient vi sit 25 minutes Jenaro Lynch [facility] [place] Start: 06-30-2022 End: 06-30-2022 ambulatory Jenaro Lynch Other [employer] Other Start: 06-30-2022 Telephone encounter Jenaro Lynch [facility] [place] Start: 05-25-2022 End: 05-25-2022 ambulatory Jenaro Lynch Other [employer] Other Start: 05-25-2022 Telephone encounter Jenaro Lynch [facility] [place] Start: 04-25-2022 End: 04-25-2022 ambulatory Jenaro Lynch Other [employer] Other Start: 04-25-2022 Telephone encounter Jenaro Lynch [facility] [place] Start: 04-19-2022 End: 04-19-2022 ambulatory Jenaro Lynch Other [employer] Other Start: 04-19-2022 Telephone encounter Jenarogorge Fraustojoe [facility] [place] Start: 03-22-2022 End: 03-22-2022 ambulatory Jenaro Fraustojoe Other [employer] Other Start: 03-22-2022 Telephone encounter Jenaro Lynch [facility] [place] Start: 03-01-2022 End: 03-01-2022 ambulatory Jenaro Fraustojoe Other [employer] Other Start: 03-01-2022 Telephone encounter Jenarogorge Fraustojoe [facility] [place] Start: 02-18-2022 End: 02-18-2022 ambulatory Jenaro Jettjoe Other [employer] Other Start: 02-18-2022 Telephone encounter Jenarogorge Fraustojoe [facility] [place] Start: 02-15-2022 End: 02-15-2022 ambulatory Verona Moet Other [employer] Other Start: 02-15-2022 Office outpatient vi sit 25 minutes Jenaro Lynch [facility] [place] Start: 02-15-2022 Telephone encounter Verona Whaley [facility] Start: 01-21-2022 End: 01-21-2022 ambulatory Jenaro Lynch Other [employer] Other Start: 01-21-2022 Telephone encounter Jenarogorge Fraustojoe [facility] [place] Start: 01-19-2022 End: 01-19-2022 ambulatory Jenaro Lynch Other [employer] Other Start: 01-19-2022 Telephone encounter Jenaro Lynch [facility] [place] Start: 01-13-2022 End: 01-13-2022 ambulatory Jenaro Lynch Other [employer] Other Start: 01-13-2022 Telephone encounter Jenaro Lynch [facility] [place] Start: 12-23-2021 End: 12-23-2021 ambulatory Jenarogorge Lynch Other [employer] Other Start: 12-23-2021 Telephone encounter Jenaro Lynch [facility] [place] Start: 11-24-2021 End: 11-24-2021 ambulatory Jenarogorge Lynch Other [employer] Other Start: 11-24-2021 Telephone encounter Jenaro Lynch [facility] [place] Start: 11-03-2021 Rx Renewal Jenaro Lynch Work Phone: [facility] [employer] 250 DO Work Phone: Start: 10-26-2021 Office outpatient vi sit 25 minutes Jenaro Lynch Work Phone: [facility] [employer] 250 DO Work Phone: Start: 10-25-2021 End: 10-25-2021 ambulatory Jenaro Lynch Other [employer] Other Start: 10-25-2021 Telephone encounter Jenaro Lynch [facility] [place] Start: 10-19-2021 End: 10-19-2021 ambulatory Aziz Bakdariuss Other [employer] Other Start: 10-19-2021 Office outpatient vi sit 25 minutes Aziz Bakhous [facility] Start: 10-18-2021 End: 10-18-2021 ambulatory Aziz Bakhous Other [employer] Other Start: 10-18-2021 Telephone encounter Azjuan Bakhous [facility] Start: 10-12-2021 End: 10-13-2021 ambulatory DUARTE HENRY . Facility: Start: 10-08-2021 End: 10-08-2021 ambulatory Jenaro Lynch Other [employer] Other Start: 10-08-2021 Telephone encounter Jenaro Lynch [facility] [place] Start: 09-22-2021 End: 09-22-2021 ambulatory Jenaro Lynch Other [employer] Other Start: 09-22-2021 Telephone encounter Jenaro Lynch [facility] [place] Start: 09-21-2021 End: 09-21-2021 ambulatory Jenaro Lynch Other [employer] Other Start: 09-21-2021 Telephone encounter Jenaro Lynch [facility] [place] Start: 08-09-2021 End: 08-09-2021 ambulatory Jenaro Lynch Other [employer] Other Start: 08-09-2021 Telephone encounter Jenaro Lynch [facility] [place] Start: 08-02-2021 End: 08-02-2021 ambulatory Jenaro Lynch Other [employer] Other Start: 08-02-2021 Telephone encounter Jenaro Lynch [facility] [place] Start: 07-27-2021 End: 07-27-2021 ambulatory Jenaro Lynch Other [employer] Other Start: 07-27-2021 Office outpatient vi sit 25 minutes Jenaro Lynch [facility] [place] Start: 06-23-2021 End: 06-23-2021 ambulatory Jenaro Lynch Other [employer] Other Start: 06-23-2021 Telephone encounter Jenaro Lynch [facility] Start: 06-22-2021 Rx Renewal Jenaro Lynch Work Phone: [facility] 250 DO Work Phone: Start: 05-03-2021 End: 05-03-2021 ambulatory Jenaro Lynch Other [facility] [employer] Other Start: 05-03-2021 Telephone encounter Jenaro Lynch [facility] [place] Procedures Date Procedure Procedure Detail Performing Clinician [...] procedure 10/21/2024 8:00 AM EDT Office Visit [facility] [address] [id number] Dolores Feldman, CLINIC OFFICE ASSISTANT-COTTON CHOPPER 703 [facility] [address] [place] [address] [facility] Start: 02-04-2024 Influenza vaccination Influenza Vaccine (Season Ended) [facility] Start: 11-15-2023 FUV, Provider: Raulito Inman, Status: Pen, Time: 2:40 PM FUV, Provider: Raulito Inman, Status: Pen, Time: 2:40 PM [facility] 250 DO Work Phone: Start: 10-02-2023 Acid Fast Culture Acid Fast Culture [facility] Start: 09-30-2023 Blood Culture 1 Blood Culture 1 [facility] Start: 09-30-2023 Blood Culture 2 Blood Culture 2 [facility] Start: 09-30-2023 Wound Culture Wound Culture [facility] Start: 09-21-2023 Abscess Culture Abscess Culture [facility] Start: 08-10-2023 Acid Fast Culture Acid Fast Culture [facility] Start: 08-05-2023 Wound Culture Wound Culture [facility] Start: 07-12-2023 Duplex scan of lower limb veins US venous duplex LE BI [facility] Start: 07-12-2023 US Lower extremity vein - bilateral [facility] Start: 07-12-2023 Duplex scan veins of upper limb US venous duplex UE LT [facility] Start: 07-12-2023 US Upper extremity vein - left [facility] Start: 02-15-2023 FUV, Provider: Dolores Velazquez, Status: Pen, Time: 10:00 AM FUV, Provider: Dolores Velazquez, Status: Pen, Time: 10:00 AM [facility] Work Phone: Start: 02-03-2023 COVID-19 Vaccine ( season) COVID-19 Vaccine ( season) [facility] Start: 01-25-2023 STRESS NUC, Provider: [facility] NUCLEAR [id number], Status: Pen, Time: 8:30 AM STRESS NUC, Provider: [place] [facility] NUCLEAR [id number], Status: Pen, Time: 8:30 AM [facility] Work Phone: Start: 07-12-2022 FUV, Provider: Raulito Inman, Status: Pen, Time: 9:20 AM FUV, Provider: Raulito Inman, Status: Pen, Time: 9:20 AM [facility] DO Work Phone: Start: 10-26-2021 FUV, Provider: Raulito Inman, Status: Pen, Time: 9:30 AM FUV, Provider: Raulito Inman, Status: Pen, Time: 9:30 AM [facility] 250 DO Work Phone: Start: 03-05-2019 Pneumococcal Vaccine: Pediatrics (0 to 5 Years) and At-Risk Patients (6 to 64 Years) (2 of 2 - PCV) Pneumococcal Vaccine: Pediatrics (0 to 5 Years) and At-Risk Patients (6 to 64 Years) (2 of 2 - PCV) [facility] Start: 2015 Zoster Vaccines (1 of 2) Zoster Vaccines (1 of 2) [facility] Start: 1987 DTaP/Tdap/Td Vaccines (1 - Tdap) DTaP/Tdap/Td Vaccines (1 - Tdap) [facility] Start: 1984 Hepatitis B Vaccines (1 of 3 - 19+ 3-dose series) Hepatitis B Vaccines (1 of 3 - 19+ 3-dose series) [facility] Start: 1984 Urine screening for protein Diabetes: Urine Protein Screening [facility] Start: 1983 Hepatitis C screening Hepatitis C Screening [facility] Start: 1975 Diabetic foot examination Diabetes: Foot Exam [facility] Start: 1975 Glaucoma screening Diabetes: Retinopathy Screening [facility] Start: 1966 MMR Vaccines (1 of 1 - Standard series) MMR Vaccines (1 of 1 - Standard series) [facility] Start: 1965 Hemoglobin A1c measurement Diabetes: Hemoglobin A1C [facility] Start: 1965 HIV screening HIV Screening [facility] Start: 1965 Lipid panel Lipid Panel [facility] Start: 1965 Screening for malignant neoplasm of colon [facility] Start: 1965 Yearly Adult Physical Yearly Adult Physical [facility] Patient Education Dependent Edema (DC) [facility] Work Phone: Patient referral [facility] Work Phone: Immunizations Immunization Date Immunization Notes Care Provider Sachin pettit 11-13-2020 Pfizer-BioNTech COVI D-19 Vacc 30 MCG/0.3ML Intramuscular Suspension Jenaro Lynch Work Phone: [facility] 10-23-2020 Pfizer-BioNTech COVI D-19 Vacc 30 MCG/0.3ML Intramuscular Suspension Jenaro Lynch Work Phone: [facility] 01-14-2019 influenza, seasonal, injectable Jenaro Lynch Other [facility] 01-14-2019 influenza virus vacc ine, unspecified formulation Yeyo ROWE [facility] 04-02-2018 influenza virus vacc ine, unspecified formulation Yeyo ROWE [facility] 04-02-2018 influenza, injectabl e, quadrivalent, preservative free DO Jenaro Lynch Work Phone: [facility] 03-05-2018 influenza virus vacc ine, unspecified formulation Jenaro Lynch Work Phone: [facility] 250 DO Work Phone: 03-05-2018 pneumococcal polysaccharide vaccine, 23 valent Jenaro P Syed Work Phone: [facility] 250 DO Work Phone: 03-07-2016 influenza virus vacc ine, unspecified formulation Yeyo SOLEDAD [facility] 03-07-2016 influenza, injectabl e, quadrivalent, preservative free Jenaro P Jetts Work Phone: [facility] 600 DO Work Phone: 02-22-2016 pneumococcal polysaccharide vaccine, 23 valent Jenaro P Kuns Work Phone: [facility] Payers Date Payer Category Payer Unknown 2023 Self-pay [id number] 2022 Private Health Insurance [id number] 2022 Private Health Insurance [id number] 2022 Private Health Insurance [id number] 2022 Medicaid [id number] 1965 Unknown [id number] 2.16.84 0.1.224694.3.579.2.593 1965 Unknown [id number] 2.16.8 40.1.723326.3.579.2.1068 1965 Unknown [id number] 2.16. 840.1.854470.3.579.2.356 1965 Unknown [id number] 2.16. 840.1.589456.3.579.2.356 1965 Unknown [id number] 2.16. 840.1.563294.3.579.2.356 1965 Unknown [id number] 2.16.8 40.1.800731.3.579.2.1244 1965 Unknown [id number] 2.16.8 40.1.883489.3.579.2.727 1965 Unknown [id number] 2.16.8 40.1.935578.3.579.2.1286 1965 Unknown [id number] 2.16.8 40.1.749886.3.579.2.1286 1965 Unknown [id number] 2.16.8 40.1.408651.3.579.2.1286 1965 Unknown [id number] 2.16.8 40.1.969408.3.579.2.1286 1965 Unknown [id number] 2.16.8 40.1.298364.3.579.2.1285 1965 Unknown [id number] 2.16.8 40.1.494294.3.579.2.1285 1965 Unknown [id number] 2.16.8 40.1.841739.3.579.2.1285 1965 Unknown [id number] 2.16.8 40.1.795555.3.579.2.1285 1965 Unknown [id number] 2.16.8 40.1.040716.3.579.2. 1965 Unknown [id number] 2.16.8 40.1.613162.3.579.2. 1965 Unknown [id number] 2.16.8 40.1.353898.3.579.2. 1965 Unknown [id number] 2.16.8 40.1.225372.3.579.2. 1965 Unknown [id number] 2.16.8 40.1.277613.3.579.2. 1965 Unknown [id number] 2.16.8 40.1.266934.3.579.2. 1965 Unknown [id number] 2.16.8 40.1.957455.3.579.2. 1965 Unknown [id number] 2.16.8 40.1.724827.3.579.2.72 1965 Unknown [id number] 2.16.8 40.1.913947.3.579.2. 1965 Unknown [id number] 2.16.8 40.1.508284.3.579.2. 1965 Unknown [id number] 2.16.8 40.1.505101.3.579.2. 1965 Unknown [id number] 2.16.8 40.1.121996.3.579.2.727 1965 Unknown [id number] 2.16.8 40.1.699717.3.579.2.727 1965 Unknown [id number] 2.16.8 40.1.321308.3.579.2.727 1965 Unknown [id number] 2.16.8 40.1.184786.3.579.2.727 1965 Unknown [id number] 2.16.8 40.1.434600.3.579.2.727 1959 Unknown [id number] 2.1 6.840.1.669862.19 Unknown [id number] 2.16.8 40.1.336034.3.579.2.531 Unknown [id number] 2.16.8 40.1.049316.3.579.2.531 Unknown [id number] 2.16.8 40.1.927557.3.579.2.531 Unknown [id number] 2.16.8 40.1.570840.3.579.2.531 Unknown [id number] 2.16.8 40.1.129167.3.579.2.531 Social History Date Type Detail Facility Start: 08-08-2023 Caffeine use Caffeine use [facility] Other Comment on above: 2 cups coffee, 4-6 c ups tea daily, occaional soda; qauit 07/2020; Start: 08-08-2023 Sex Assigned At F [facility] Start: 07-14-2020 End: 07-12-2023 Tobacco smoking status NHIS Smoker (finding) [facility] Start: 1965 Sex Assigned At Male F [facility] Start: 11-23-2022 End: 10-23-2023 Tobacco smoking status Heavy tobacco smoker (finding) [facility] Tobacco smoking status Never [facility] Start: 10-24-2023 Tobacco smoking stat us NHIS Ex-smoker [facility] End: 06-05-2020 History of tobacco use Cigarette Smoker [facility] Work Phone: Start: 10-24-2023 Tobacco use and exposure Smokeless tobacco non-user [facility] Work Phone: Start: 10-24-2023 Alcoholic beverage intake Lifetime non-drinker (finding) [facility] Work Phone: Start: 1965 Sex assigned at Not on file U [facility] Work Phone: Start: 10-14-2023 End: 10-24-2023 Exposure to SARS-CoV-2 (event) Not sure [facility] Medical Equipment Procedure Code Equipment [...] bilia ry stentMultiple peripheral artery stent, bare-metal ([id number] [facility] Start: 07-14-2020 Functional Status Date Assessment Result Facility 10-23-2023 Functional Status No [facility] 06-02-2023 Functional Status N/A [facility] 02-14-2023 Functional Status N/A [facility] 01-30-2023 Functional Status N/A [facility] 11-23-2022 Functional Status N/A [facility] Clinical Notes 06-23-2021 to 10-24-2023 Raulito Inman MD - 10/24/2023 10:20 AM EDTPatient Instructions Note Date & Type Note Facility 10-24-2023 Note Sinus tachycardia Rightward axis Poor anterior R wave progression QTc 481 ms [facility] 10-24-2023 History of Present illness Narrative [...] discussion and plan. documented in this encounter [facility] Work Phone: 10-24-2023 Instructions Rosemary Benavides LPN [...] a cardiac standpoint documented in this encounter [facility] Work Phone: 07-13-2023 Hospital Discharge instructions Follow Up Care 07/13/2023 12:04:02 With:SOLEDAD HERRERA, Yeyo Blum, URL Address: [address] [place] [address]- When: Unknown [facility] 06-26-2023 Evaluation note Encounter Date Diagnosis Assessment Notes Jun, Hyperlipidemia (ICD-10 - E78.5) [employer] Other [id number] Hospital Discharge instructions Patient Education 06/02/2023 11:57:43 [...] urethra. Follow these instructions at home: Take [id number] and prescription medicines only as told by [...] provider. Document Revised: 12/08/2021 Document Reviewed: 12/08/2021 [employer] Patient Education 2022 [place]. Follow Up Care 06/01/2023 14:05:36 With:SOLEDAD HERRERA, Yeyo Blum, URL Address: [address] [place] [address] [place] [address]- When: Unknown [facility] [place] 12-12-2023 Evaluation note* Encounter Date Diagnosis Assessment Notes Treatment Notes Treatment Clinical Notes May, 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) [employer] Other 11-24-2023 Evaluation note* Encounter Date Diagnosis Assessment Notes Treatment Notes Treatment Clinical Notes Apr, Diabetic nephropathy (ICD-10 - E11.21) [employer] Other 11-07-2023 Evaluation note* Encounter Date Diagnosis Assessment Notes Treatment Notes Treatment Clinical Notes Apr, Left arm pain (ICD-10 - M79.602) [employer] Other 11-02-2023 Evaluation note* Encounter Date [...] and to have his surgery as scheduled. 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 He was found to have developed [...] to continue to montior this at home. [employer] Other 10-09-2023 Note [id number] Hospital Discharge instructions Patient Education 02/14/2023 [...] including vitamins, herbs, eye drops, creams, and crkn-dqn-eingdxw medicines. Any problems you or family members [...] provider tells you to take them. Taking eofs-bvc-vvhhwqv medicines, vitamins, herbs, and supplements. Surgery safety [...] provider. Document Revised: 02/15/2022 Document Reviewed: 02/15/2022 [employer] Patient Education 2022 [place]. [facility]09-12-2023 Note [id number]:127[facility] 02-14-2023 [id number]:127[facility]08-28-2023 Hospital Discharge instructions Patient Education 01/30/2023 11:22:32 [...] including vitamins, herbs, eye drops, creams, and hlbu-shf-zekguuc medicines. ?Whether you are or may be [...] provider. Document Revised: 02/02/2022 Document Reviewed: 12/25/2020 [employer] Patient Education 2022 [place]. 01/30/2023 11:22:30 Cystoscopy Cystoscopy Cystoscopy is a [...] including vitamins, herbs, eye drops, creams, and qyvh-gfz-yvxsijl medicines. Any problems you or family members [...] provider tells you to take them. Taking dpdg-nhk-akapedh medicines, vitamins, herbs, and supplements. Tests You [...] Follow these instructions at home: Medicines Take past-euj-cbhyvjd and prescription medicines only as told by [...] provider. Document Revised: 02/02/2022 Document Reviewed: 01/01/2021 [employer] Patient Education 2022 [place]. Follow Up Care 11/23/2022 13:02:56 With:SOLEDAD HERRERA, Yeyo Blum, URL Address: [facility] [address], [place] [address] [phone] When: Unknown Comments:sched cysto/uros [facility] 08-15-2023 Evaluation note* Encounter Date Diagnosis Assessment Notes Treatment Notes Treatment Clinical Notes Jan, Diabetic nephropathy (ICD-10 - E11.21) [employer] Other 06-29-2023 Evaluation note* Encounter Date [...] reviewed. 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 [employer] Other 06-21-2023 Hospital Discharge instructions Patient [...] provider. Document Revised: 08/11/2021 Document Reviewed: 05/07/2021 [employer] Patient Education 2021 [place]. [facility] 09/14/2022 14:23:26 With:SOLEDAD HERRERA, Yeyo Blum, URL Address: [facility] [address] , [place] [address]- When: Unknown [facility] 05-05-2023 Evaluation note* Encounter Date Diagnosis Assessment Notes Treatment Notes Treatment Clinical Notes October, Erectile dysfunction, unspecified erectile dysfunction type (ICD-10 - N52.9) [employer] Other 04-19-2023 Evaluation note* Encounter Date Diagnosis Assessment Notes Treatment Notes Treatment Clinical Notes Sep, 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) [employer] Other 04-12-2023 Evaluation note* Encounter Date Diagnosis Assessment Notes Treatment Notes Treatment Clinical Notes Sep, 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) Sep, 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) [employer] Other 03-20-2023 Evaluation note* Encounter Date Diagnosis Assessment Notes Treatment Notes Treatment Clinical Notes Aug, Diabetic nephropathy (ICD-10 - E11.21) [employer] Other 03-03-2023 Evaluation note* Encounter Date Diagnosis Assessment Notes Treatment Notes Treatment Clinical Notes Aug, Pain in right leg (ICD-10 - M79.604) [employer] Other 03-02-2023 Evaluation note* Encounter Date Diagnosis Assessment Notes Treatment Notes Treatment Clinical Notes Aug, Pain in right leg (ICD-10 - M79.604) [employer] Other 02-20-2023 Evaluation note* Encounter Date Diagnosis Assessment Notes Treatment Notes Treatment Clinical Notes Jul, Intractable episodic headache, unspecified headache type (ICD-10 - R51.9) [employer] Other 02-14-2023 Evaluation note* Encounter Date Diagnosis Assessment Notes Treatment Notes Treatment Clinical Notes Jul, Acute intractable headache, unspecified headache type (ICD-10 - R51.9) [employer] Other 02-08-2023 Evaluation note* Encounter Date Diagnosis Assessment Notes Treatment Notes Treatment Clinical Notes Jul, Headache (ICD-10 - R51.9) [employer] Other 01-30-2023 Evaluation note* Encounter Date [...] medication and we will continue to monitor. [employer] Other 12-21-2022 Evaluation note* Encounter Date Diagnosis Assessment Notes Treatment Notes Treatment Clinical Notes May, Diabetic nephropathy (ICD-10 - E11.21) [employer] Other 11-21-2022 Evaluation note* Encounter Date Diagnosis Assessment Notes Treatment Notes Treatment Clinical Notes Apr, Diabetic nephropathy (ICD-10 - E11.21) [employer] Other 11-15-2022 Evaluation note* Encounter Date Diagnosis Assessment Notes Treatment Notes Treatment Clinical Notes Apr, Pain in right leg (ICD-10 - M79.604) [employer] Other 10-18-2022 Evaluation note* Encounter Date Diagnosis Assessment Notes Treatment Notes Treatment Clinical Notes Mar, Diabetic nephropathy (ICD-10 - E11.21) [employer] Other 09-13-2022 Evaluation note* Encounter Date Diagnosis Assessment Notes Treatment Notes Treatment Clinical Notes Feb, Hypertensive chronic kidney disease with stage 1 through stage 4 chronic kidney disease, or unspecified chronic kidney disease (ICD-10 - I12.9) [employer] Other 09-13-2022 Evaluation note* Encounter Date [...] scheduled. 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 Feb, Pain in right leg [...] Noted upon review of blood work results. [employer] Other 08-19-2022 Evaluation note* Encounter Date Diagnosis Assessment Notes Treatment Notes Treatment Clinical Notes Jan, Diabetic nephropathy (ICD-10 - E11.21) [employer] Other 08-17-2022 Evaluation note* Encounter Date Diagnosis Assessment Notes Treatment Notes Treatment Clinical Notes Jan, Diabetic nephropathy (ICD-10 - E11.21) [employer] Other 07-21-2022 Evaluation note* Encounter Date Diagnosis Assessment Notes Treatment Notes Treatment Clinical Notes Dec, Diabetic nephropathy (ICD-10 - E11.21) [employer] Other 06-22-2022 Evaluation note* Encounter Date Diagnosis Assessment Notes Treatment Notes Treatment Clinical Notes Nov, Diabetic nephropathy (ICD-10 - E11.21) [employer] Other 05-23-2022 Evaluation note* Encounter Date Diagnosis Assessment Notes Treatment Notes Treatment Clinical Notes October, Diabetic nephropathy (ICD-10 - E11.21) [employer] Other 05-17-2022 Evaluation note* Encounter Date [...] E11.59) October, 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 Inman. For this October, Other He did quit smoking since July 2020 [employer] Other 05-16-2022 Evaluation note* Encounter Date Diagnosis Assessment Notes Treatment Notes Treatment Clinical Notes October, Hypertensive chronic kidney disease with stage 1 through stage 4 chronic kidney disease, or unspecified chronic kidney disease (ICD-10 - I12.9) October, Stage 3 chronic kidney disease, unspecified whether stage 3a or 3b CKD (ICD-10 - N18.30) [employer] Other 05-06-2022 Evaluation note* Encounter Date Diagnosis Assessment Notes Treatment Notes Treatment Clinical Notes October, Pain in right leg (ICD-10 - M79.604) October, Pain in left leg (ICD-10 - M79.605) [employer] Other 04-20-2022 Evaluation note* Encounter Date Diagnosis Assessment Notes Treatment Notes Treatment Clinical Notes Sep, Diabetic nephropathy (ICD-10 - E11.21) [employer] Other 04-19-2022 Evaluation note* Encounter Date Diagnosis Assessment Notes Treatment Notes Treatment Clinical Notes Sep, Anxiety (ICD-10 - F41.9) Sep, Hypertensive chronic kidney disease with stage 1 through stage 4 chronic kidney disease, or unspecified chronic kidney disease (ICD-10 - I12.9) [employer] Other 03-07-2022 Evaluation note* Encounter Date Diagnosis Assessment Notes Treatment Notes Treatment Clinical Notes Aug, Anxiety (ICD-10 - F41.9) [employer] Other 02-22-2022 Evaluation note* Encounter Date [...] 12 pound weight loss from last visit. [employer] Other [id number] Evaluation note* Encounter Date Diagnosis Assessment Notes Treatment Notes Treatment Clinical Notes Jun, Diabetic nephropathy (ICD-10 - E11.21) [employer] Other Evaluation + Plan note Future Appointments Appointment Date:12/21/2022 11:00:00 AM Scheduled Provider: Location:[facility] Appointment Type:URO Nurse Visit Appointment Date:01/30/2023 10:30:00 AM Scheduled Provider:Yeyo ROWE MD Location:[facility] Appointment Type:URO Office Visit [facility] Evaluation + Plan note Future Appointments Appointment Date:01/30/2023 10:15:00 AM Scheduled Provider:Yeyo ROWE MD Location:[facility] Appointment Type:URO Office Visit [facility] Evaluation + Plan note Future Appointments Appointment Date:02/01/2023 10:00:00 AM Scheduled Provider: Location:[facility] Appointment Type:Urology CALL PAT FT Appointment Date:02/08/2023 09:00:00 AM Scheduled Provider: Location:[facility] Appointment Type:Urology FT Appointment Date:02/14/2023 09:15:00 AM Scheduled Provider: Location:[facility] Appointment Type:Urology FT [facility] evaluation + Plan note Future Appointments Appointment Date:02/14/2023 09:15:00 AM Scheduled Provider: Location:[facility] Future Appointments Appointment Date:03/20/2023 08:45:00 AM Scheduled Provider: Location:[facility] Appointment Type:URO Nurse Visit Appointment Date:04/05/2023 08:00:00 AM Scheduled Provider:Yeyo ROWE MD Location:[facility] App[facility]ment [facility] Future Appointments Appointment Date:05/03/2023 08:45:00 AM Scheduled Provider:Yeyo ROWE MD Location:[facility] Appointment Type:URO Office Visit [facility] Evaluation + Plan note Future Appointments Appointment Date:07/03/2023 10:15:00 AM Scheduled Provider:Yeyo ROWE MD Location:[facility] Appointment Type:URO Office Visit [facility] evaluation + Plan note Future Appointments Appointment Date:10/23/2023 09:30:00 AM Scheduled Provider:Pad[facility]es [facility] noteNo InformationNort [employer] Other Evaluation noteNo assessment information available [facility] Work Phone: Evaluation note* Diagnosis History of PTCA Postsurgical percutaneous transluminal coronary angioplasty status Hyperlipidemia, unspecified hyperlipidemia type Encounter for pre-operative cardiovascular clearance Former smoker Personal history of tobacco use, presenting hazards to health documented in this encounter [facility] Work Phone: History general Narrative - Reported* Type Description Date Medical History TYPE II DIABETES Medical History CHRONIC BACK PAIN OLD INJURY, Medical History HTN Medical History FIBROMYALGIA Medical History 2013-stress test Medical History mild heart attack Medical History heart cath Medical History cardiac stents placed 07/26/15 Dr Mayr Bowie Medical History 10/10/2016 PSA (0.5) Medical [...] Heart stent placed by Dr. Bowie at [facility] 07/26/15 Surgical History Left knee arthroscopy 11/2015 Surgical History carpal tunnel release, right an d left 08/2016 Surgical History hydrocele repair 08/2016 Surgical History cardiac cath [facility] 04/02/18 Surgical History Lt LE iliac DSA, angioplasty & stenting 09/27/2018 Surgical History Left Angiogram with one stent - Dr. Boss 07/2020 Hospitalization History Deep Depression, Anxiety; [facility] 11-11-10 Hospitalization History [facility] hypoxemia and hyper capnic respirtory failure 11/11/16 Hospitalization History chest pain [facility] 04/02/18 [employer] Other History of Present illness NarrativeReturns in [...] impact on blood pressure and diabetes were [facility] [employer] DO Work Phone: History of Present illness [...] medication regimen. He denies medication side effects. [facility] Work Phone: History of Present [...] medication regimen. He denies medication side effects. [facility] DO Work Phone: Hospital course Narrative No data available for this section [facility] Hospital Discharge instructions No data available for this section [facility] note No data available for this section [facility] Chief Complaint SOLOMON FELDMAN is being seen [...] Specialty Diagnoses / Procedures Referred By Brett mnadujano Referred To Contact Diagnoses Encounter for pre-operative cardiovascular clearance Procedures ECG 12 Lead Raulito Inman MD [address] [place] [address], [address] [address] Referral ID Status Reason Start Date Expiration Date V isits Requested Visits Authorized [id number] Authorized 10/24/2023 10/23/2024 1 1 Specialty Diagnoses / Procedures Referred By Brett t Referred To Contact Cardiology Diagnoses History of PTCA Procedures Follow Up In Cardiology Raulito Inman MD [address] [place] [address], [address] [address] Referral ID Status Reason Start Date Expiration Date V isits Requested Visits Authorized [id number] Authorized 10/24/2023 10/23/2024 1 1 Reason CANCELLED consult and treat; previous patient of Dr. Shapre last seen in 2020; persisting intractable headaches Diagnosis 1 Acute intractable he adache, unspecified headache type (R51.9) Referral Organization [facility] [place] Referring Provider First Name Jenaro Referring Provider Last Name Syed Referring Provider Specialty Family Prac dale Referred Organization [facility] Referred Provider Lyssa Sharpe Referred Address [address] [place], [place],[address] Referred Provider Specialty Neurology Referral Priority Routine General Notes [facility] 023 10:19:08 AM >Received today. [facility] request us to fill out their form and attach to Referral and send it to them and they will call patient to schedule. Referral was sent P2P and fax insurance card since it would not let me attach to referral [facility] 07/28/2022 10:23:53 AM >Spoke with Marilynn at [facility] and patient has been scheduled and cancelled the appt for 07/26/22 [facility] 07/28/2022 10:27:39 AM >Telephone encounter was sent Reason 03/31/22 @ 2:45pm consult and treat Diagnosis 1 Type 2 diabetes bobby itus with circulatory disorder (E11.59) [facility] [place] Referring Provider First Name Jenaro Referring Provider Last Name Syed Referring Provider Specialty Family Jono gracee Referred Organization [facility] Referred Provider Doris Barnes Referred Address [address],[facility], [place],[address] Referred Provider Specialty Nurse Jono calderon Referral Priority Routine Referral Appointment Date 2022-03-31 General Notes [facility] 022 02:28:10 PM >Received today and sent P2P [facility] 02/16/2022 07:50:21 AM >Patient has been scheduled [...] ECG 12 Lead Raulito Inman [facility], [address] [address] Referral ID Status Reason Start Date Expiration Date V isits Requested Visits Authorized [id number] Authorized 10/24/2023 10/23/2024 1 1 Care Teams [...] Provider Active Sta rt: October 06, 2023 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 Relationship Specialty Start Date End Date Jenaro [...] DATE CREATED AUTHOR AUTHOR'S ORGANIZ ATION 01/27/2023 [facility] DATE CREATED AUTHOR AUTHOR'S ORGANIZ ATION 02/16/2023 [facility] DATE CREATED AUTHOR AUTHOR'S ORGANIZ ATION 02/16/2023 [employer] DATE CREATED AUTHOR AUTHOR'S ORGANIZ ATION 10/12/2023 [facility] DATE CREATED AUTHOR AUTHOR'S ORGANIZ ATION 10/22/2023 [facility] DATE CREATED AUTHOR AUTHOR'S ORGANIZ ATION 10/26/2023 [facility] DATE CREATED AUTHOR AUTHOR'S ORGANIZ ATION 10/26/2023 [facility] DATE CREATED AUTHOR AUTHOR'S ORGANIZ ATION 11/16/2023 [facility] DATE CREATED AUTHOR AUTHOR'S ORGANIZ ATION 11/25/[address] [facility] DATE CREATED AUTHOR AUTHOR'S ORGANIZ ATION 11/26/2023 [facility] FOR RECORDS PERTAINING TO PATIENTS WHO ARE [...] BE BASED ON THE PRIMARY CLINICAL RECORDS. [facility] [employer] [facility]. provides no warranty or guarantee of the accuracy or completeness of information in this document.
== END 2023-11-28 09:14 | disposition home or self-care (01) ==
LOC: WC 09:14
PROVIDERS: PCP Family Medicine; Visit Provider Podiatrist Foot & Ankle Surgery
DX: E11.621 Type 2 diabetes mellitus with foot ulcer (principal); L97.419 Non-pressure chronic ulcer of right heel and midfoot with unspecified severity; T87.89 Other complications of amputation stump
CPT/HCPCS: G0463

== ENCOUNTER 2023-12-09 12:07 | Observation (INO) | payer OTHER, SELFPAY ==
[2023-12-09] VITALS (53 sets, daily range): BP systolic 85–135; BP diastolic 51–95; PULSE 76–115; TEMP 36.6–37.1; O2SAT 82–100; BMI 28.4; BMI 25.1
--- OUTSIDE RECORDS SUMMARY | 2023-12-09 12:14 | XMS_ITS | CCD ---
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 Jenaro Sierra Primary Care UnavailDolores Vaughn Attending Unavailable Dolores Feldman Attending Unavailable Dolores Feldman Referring Unavailable Syed, Dr. Jenaro Sierra Primary Care UnavailDolores Vaughn Attending Unavailable Dolores Feldman Referring Unavailable Syed, Dr. Jenaro Sierra Primary Care Unavailkita Inman II, Dr. Raulito Sierra Referring Unavailable Syed, Dr. Jenaro Sierra Primary Care Unavailkita Inman II, Dr. Raulito Sierra Attending Unavailable DO Jenaro Lynch Primary Care Provider MD Nancy Wilson Emergency Provider DO Jenaro Lynch Primary Care Provider MD Nancy Wilson Emergency Provider JERARDO Mclaughlin Attending Provider JERARDO Mclaughlin Referring Provider [phone] Curt, LINDSEY Hooker Attending Provider Curt, Paula Hooker Attending Unavailable Highlbhavin, Paula Hooker Admitting Unavailable Highlander, Paula Hooker Attending Unavailable Highlander, Paula Hooker Admitting Unavailable Kuns, Jenaro Primary Care Unavailable Shana Mclaughlin Referring Unavailable Shana Mclaughlin Attending Unavailable Shana Mclaughlin Admitting Unavailable Kuns, Jenaro Primary Care Unavailable Wilson, Nancy Attending Unavailable Wilson, Nancy Admitting Unavailable Kuns, Jenaro Primary Care Unavailable Highlander, Paula Hooker Attending Unavailable Highlander, Paula Hooker Admitting Unavailable Kuns, DO Eason Primary Care Provider Jenaro Lynch DO Primary Care Provider RAULITO INMAN Attending Unavailable KUNS, JENARO SIERRA Primary Care Unavailable ROWE, Yeyo lBum Attending Unavailable Simon, Mohamed F. Referring Unavailable Simon, Mohamed F. Attending Unavailable Simon, Mohamed F. Admitting Unavailable SIMON, MOHAMED F Attending Unavailable HIGHLANDER, PAULA Hooker Referring Unavailable SIMON, MOHAMED F Admitting Unavailable SIMON, MOHAMED F Attending Unavailable ONLY), [facility] (INPATIENT Consult ing Unavailable WINSTONISOROSIE Referring Unavailable BROOKENSMAAME Referring Unavailable DERISO ROSIE C Referring Unavailable ROWE, Yeyo R [...] Referring Unavailable ROWE, Yeyo R Admitting Unavailable Simon, Mohamed F. Admitting Unavailable Simon, Mohamed F. Attending Unavailable Simon, Mohamed F. Referring Unavailable ROWE, Yeyo R Attending Unavailable ROWE, Yeyo R Referring Unavailable ROWE, Yeyo R Attending Unavailable ROWE, Yeyo R Attending Unavailable ROWE, Yeyo R Attending Unavailable ROWE, Yeyo R Attending Unavailable PADMINI MONTES Attending Unavailable Allergies Allergy Classification Reported Allergen(s) Allergy Type Date of Onset Reaction(s) Facility (20 sources) natural latex rubber; 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: [LATEX] Allergy to substance (finding) 03-27-20 23 Itching (finding), Eruption of skin (disorder) [facility] (20 sources) Penicillins; 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: [Penicillins] Allergy to drug (finding) 11-05-19 14 Anaphylactoid reaction (disorder) [facility] (20 sources) Acetaminophen / oxyCODONE Drug Allergy vomiting [facility] Other (20 sources) tamsulosin; 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: [TAMSULOSIN] Drug Allergy 07-14-19 21 hives [facility] (20 sources) PENICIILIN Propensity to adverse reactions SWELLING OF AIRWAY [facility] Other (9 sources) Acetaminophen; 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: [acetaminophen] Drug Allergy 07-14-19 21 Vomiting [facility] (10 sources) oxyCODONE; 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: [Oxycodone] Drug Allergy 02-08-20 17 Vomiting [facility] (1 source) Penicillins Drug allergy (disorder) 09-23-19 14 [facility] (16 sources) Penicillin G; 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: [penicillin G benzathine] Drug Allergy [facility] (8 sources) Penicillin Drug Allergy anaphylaxis [facility] Other (1 source) Penicillins Drug allergy (disorder) 07-31-19 24 [facility] (1 source) tamsulosin Drug Allergy 07-31-19 24 [facility] (1 source) Latex Allergy to substance 03-27-20 23 Unknown [facility] (1 source) Penicillins Drug Allergy 03-27-20 23 Anaphylaxis [facility] Work Phone: (4 sources) Isosorbide; 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: [ISOSORBIDE MONONITRATE] Drug Allergy [...] 1:00am July 14, 2020 12:39pm Start: 10-10-2014 [place] 325 mg-5 mg oral tablet 1 tab(s), [...] tablet Indications: Other forms of angina pectoris ([facility]) TAKE 1 TABLET BY MOUTH EVERY DAY [...] 27, 2023 3:54pm take 2 tablets by [facility] twice daily before mealtime omeprazole OTC (PriLOSEC [...] BID, # 60 cap(s), Refills(s) 11, Pharmacy: [facility]/pharmacy #[id number], 182, cm, 06/02/23 11:00:00 EST, Height/Length Dosing, 94, kg, 06/02/23 11:00:00 EST, Weight Dosing Start Date: 06/26/23 Status: Ordered Start: 02-14-2023 take 1 capsule by [facility] twice daily tamsulosin 0.4 mg Cap 0.4 mg = 1 cap(s), Oral, BID, # 60 cap(s), Refills(s) 3, Pharmacy: [facility]/pharmacy #[id number], 182, cm, 02/14/23 8:58:00 EDT, Height/Length Dosing, 94, kg, 01/30/23 10:24:00 EDT, Weight Dosing Start Date: 02/14/23 Status: Ordered take 1 capsule by [facility] once daily Tamsulosin HCl - 0.4 MG Oral Capsule TAKE 1 CAPSULE Daily Quantity: 0 Refills: 0 Ordered: 15-Feb-2023 DO Active TENS Unit (20 sources) Start: 01-27-2014 Start: 01-27-2014 TENS Unit as d irected Use as directed. Jan, Active Tiotropium [place] (Spiriva With Handihaler) 18 mcg capsule, w/inhalation device (4 sources) Start: 07-12-2023 take 1 capsule by inhalation once daily Tiotropium [place] (Spiriva With Handihaler) 18 mcg capsule, w/inhalation device Active 1 CAP INHALATION Daily July 12, 2023 1:00am puncture 1 cap using device; one dose = 2 inhalations Start: 07-12-2023 take 1 capsule by in halation once daily Tiotropium [place] (Spiriva With Handihaler) 18 mcg capsule, w/inhalation [...] Ordered Start: 07-04-2022 take 1 tablet by [facility] every twelve hours tiZANidine HCl 4 MG 1 tablet as needed Orally Twice a day Jun, Active take 2 tablets by [facility] at bedtime tiZANidine HCl [...] Start: 10-31-2013 take 1 tablet by kalie once daily Norvasc 5 mg Tab 5 [...] procedure, # 2 cap(s), Refills(s) 0, Pharmacy: [facility]/pharmacy #[id number], 182, cm, 01/30/23 10:24:00 [...] take 1 tablet by mouth once daily Olmesartan-Zapata chlorothiazide (Benicar Hct) 40-12.5 mg Tablet Discontinued [...] of unspecified type of vessel, [place] or graft] Onset: 2 Resolved: 2 Chronic [...] 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: [Essential (primary) hypertension] 04-02-2018 Chronic Gangrene (3 sources) 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; Translations: [Atherosclerosis of [place] arteries of extremities with gangrene, right leg] [...] sources) Long-term current use of insulin; Translations: [FCI (current) use of insulin] Episodic Other and [...] Unclassified (1 source) New Patient Onset: 4 Unclassified (1 source) 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 Onset: 4 Urinary tract infections (1 source) [...] Test Name Value Interpretation Reference Range Facility Outside Operativeon 11-28-19 Outside Operative [id number]#1.00TIFF Normal [facility] Physician Orderon 11-28-2023 Physician Order [id number]#1.00TIFF Normal [facility] Progress Note-Physicianon Progress Note-Physician [id number]#1.00TIFF Normal [facility] BASIC METABOLIC PANLon 11-13 Anion gap [Moles/Vol] 10 mmol/L Normal 5-15 [facility] Comment on above: Performed By: #### C KENDALL CANALES, , [address] ####[facility] ([id number])[address] [address] Calcium [Mass/Vol] 8.8 mg/dL Normal 8.5-10.5 [facility] Comment on above: Performed By: #### C KENDALL CANALES, 40155-2, 2777-1 ####[facility] ([id number])[address], [address], [place] [address] Chloride [Moles/Vol] 99 mmol/L Normal 98-[address] [facility] Comment on above: Performed By: #### C ALLY [facility], , 2776-06 ####[facility] ([id number])[address], [address], [place] [address] CO2 [Moles/Vol] 26 mmol/L Normal 22-32 [facility] Comment on above: Performed By: #### C KENDALL CANALES, , 2776-06 ####[facility] ([id number])[address], [address] [address] Creatinine [Mass/Vol] 1.61 mg/dL High 0.60-1.30 [facility] Comment on above: Result Comment: METH OD TRACEABLE TO IDMS STANDARD Performed By: #### KENDALL AHUJA, , 2776-06 ####[facility] ([id number])[address], [address], [place] [address] GFR/1.73 sq M.predicted among non-blacks MDRD (S/P/Bld) [Vol rate/Area] 49 mL/min/{1.73_m2} Low >59 [facility] Comment on above: Result Comment: Reported eGFR is based on the CKD-EPI 2020 equation that does not use a race coefficient. Performed By: #### C KENDALL CANALES, , 2776-06 ####[facility] ([id number])[address] [address] [address] Glucose [Mass/Vol] 184 mg/dL High 65-99 [facility] Comment on above: Performed By: #### KENDALL AHUJA, , 2776-06 ####[facility] ([id number])[address], [address] [address] Potassium [Moles/Vol] 4.0 mmol/L Normal 3.5-5.0 [facility] Comment on above: Performed By: #### C ALLY, [facility], , 2776-06 ####[facility] ([id number])[address] [address] Sodium [Moles/Vol] 135 mmol/L Normal 134-146 [facility] Comment on above: Performed By: #### C ALLY, [facility], , 2776-06 ####[facility] ([id number])[address] [address] Urea nitrogen [Mass/Vol] 23 mg/dL Normal 5-23 [facility] Comment on above: Performed By: #### C ALLY, [facility], , 2776-06 ####[facility] ([id number])[address] [address], [place] [address] COMPLETE BLOOD COUNTon 11-13 Erythrocyte distribution width (RBC) [Ratio] 22.8 % High 11.5-15.0 [facility] Comment on above: Performed By: #### C ALLY, [facility], , 2776-06 ####[facility] ([id number])[address] [address] [address] Hematocrit (Bld) [Volume fraction] 25.1 % Low 39-49 [facility] Comment on above: Performed By: #### C ALLY, [facility], , 2776-06 ####[facility] ([id number])[address] [address] [address] Hemoglobin (Bld) [Mass/Vol] 8.1 g/dL Low 13.0-17.0 [facility] Comment on above: Performed By: #### C ALLY, BMP, , 2776-06 ####[facility] ([id number])[address] [address] MCH (RBC) [Entitic mass] 25.1 pg Low 27-34 [facility] Comment on above: Performed By: #### C ALLY, BMP, , 2776-06 ####[facility] ([id number])[address], [address], [place] [address] MCHC (RBC) [Mass/Vol] 32.4 g/dL Normal 32-36 [facility] Comment on above: Performed By: #### C ALLY, BMP, , 2776-06 ####[facility] ([id number])[address], [address] [address] MCV (RBC) [Entitic vol] 77 fL Low 80-100 [facility] Comment on above: Performed By: #### Snehal CANALES, KENDALL, , 2776-06 ####[facility] ([id number])[address], [address] [address] Platelet mean volume (Bld) [Entitic vol] 8.8 fL Normal 7-12 [facility] Comment on above: Performed By: #### Snehal CANALES, [facility], , 2776-06 ####[facility] ([id number])[address] [address] [address] Platelets (Bld) [#/Vol] 232 10*3/uL Normal 150-450 [facility] Comment on above: Performed By: #### Snehal CANALES, BMP, , 2776-06 ####[facility] ([id number])[address], [address], [place] [address] RBC COUNT 3.25 X10E12/L Low 4.10-5.70 [facility] Comment on above: Performed By: #### Snehal CANALES, BMP, , 2776-06 ####[facility] ([id number])[address], [address], [place] [address] WBC (Bld) [#/Vol] 8.4 10*3/uL Normal 4.0-11.0 [facility] Comment on above: Performed By: #### C ALLY, KENDALL, , 1 ####[facility] ([id number])[address], [address], [place] [address] Glucose Glucometer (BldC) [M ass/Vol]on 11-14-2023 Glucose [Mass/Vol] 173 mg/dL High 65-99 [facility] Glucose [Mass/Vol] 279 mg/dL High 65-99 [facility] Glucose [Mass/Vol] 249 mg/dL High 65-99 [facility] MAGNESIUMon 11-14-2023 Magnesium [Mass/Vol] 2.1 mg/dL Normal 1.8-2.[address] [facility] Comment on above: Performed By: #### 1 9123-9 ####[facility] ([id number])[address], [address], [place] [address] Magnesium [Mass/Vol] mg/dL Critically low 1.8-2.6 [facility] Comment on above: Performed By: #### 1 9123-9 ####[facility] ([id number])[address], [address], [place] [address] Magnesium [Mass/Vol] 1.7 mg/dL Low 1.8-2.[address] [facility] Comment on above: Performed By: #### C ALLY, KENDALL, , 1 ####[facility] ([id number])[address], [place] [address] PHOSPHORUSon 11-14-2023 Phosphate [Mass/Vol] 3.6 mg/dL Normal 2.4-4.[address] [facility] Comment on above: Performed By: #### C ALLY, KENDALL, , 1 ####[facility] ([id number])[address] [address] BASIC METABOLIC PANLon 11-12 Anion gap [Moles/Vol] 10 mmol/L Normal 5-15 [facility] Comment on above: Performed By: #### C ALLY, KENDALL, , 2776-06 ####[facility] ([id number])[address] [address] Calcium [Mass/Vol] 8.9 mg/dL Normal 8.5-10.5 [facility] Comment on above: Performed By: #### Snehal CANALES, KENDALL, , 2776-06 ####[facility] ([id number])[address] [address] Chloride [Moles/Vol] 98 mmol/L Normal 98-[address] [facility] Comment on above: Performed By: #### Snehal CANALES, KENDALL, , 2776-06 ####[facility] ([id number])[address], [place] [address] CO2 [Moles/Vol] 27 mmol/L Normal 22-32 [facility] Comment on above: Performed By: #### Snehal CANALES, KENDALL, , 2776-06 ####[facility] ([id number])[address], [place] [address] Creatinine [Mass/Vol] 1.47 mg/dL High 0.60-1.30 [facility] Comment on above: Result Comment: METH OD TRACEABLE TO IDMS STANDARD Performed By: #### KENDALL AHUJA, , 2776-06 ####[facility] ([id number])[address], [place] [address] GFR/1.73 sq M.predicted among non-blacks MDRD (S/P/Bld) [Vol rate/Area] 55 mL/min/{1.73_m2} Low >59 [facility] Comment on above: Result Comment: Reported eGFR is based on the CKD-EPI 2020 equation that does not use a race coefficient. Performed By: #### C ALLY [facility], , 2776-06 ####[facility] ([id number])[address], [place] [address] Glucose [Mass/Vol] 164 mg/dL High 65-99 [facility] Comment on above: Performed By: #### C ALLY, [facility], , 2776-06 ####[facility] ([id number])[address] [address] [place] [address] Potassium [Moles/Vol] 3.8 mmol/L Normal 3.5-5.0 [facility] Comment on above: Performed By: #### C ALLY, [facility], , 2776-06 ####[facility] ([id number])[address], [place] [address] Sodium [Moles/Vol] 135 mmol/L Normal 134-146 [facility] Comment on above: Performed By: #### Snehal CANALES, [facility], , 2776-06 ####[facility] ([id number])[address] [address] [place] [address] Urea nitrogen [Mass/Vol] 26 mg/dL High 5-23 [facility] Comment on above: Performed By: #### C ALLY, [facility], , 2776-06 ####[facility] ([id number])[address] [address] [place] [address] COMPLETE BLOOD COUNTon 11-12 Erythrocyte distribution width (RBC) [Ratio] 23.2 % High 11.5-15.0 [facility] Comment on above: Performed By: #### C ALLY, [facility], , 2776-06 ####[facility] ([id number])[address] [address] [address] Hematocrit (Bld) [Volume fraction] 24.7 % Low 39-49 [facility] Comment on above: Performed By: #### Snehal CANALES, [facility], , 2776-06 ####[facility] ([id number])[address], [address] [address] Hemoglobin (Bld) [Mass/Vol] 8.2 g/dL Low 13.0-17.0 [facility] Comment on above: Performed By: #### C ALLY, [facility], , 2776-06 ####[facility] ([id number])[address] [address] MCH (RBC) [Entitic mass] 25.7 pg Low 27-34 [facility] Comment on above: Performed By: #### Snehal CANALES, [facility], , 2776-06 ####[facility] ([id number])[address] [address] MCHC (RBC) [Mass/Vol] 33.4 g/dL Normal 32-36 [facility] Comment on above: Performed By: #### Snehal CANALES, BMP, , 2776-06 ####[facility] ([id number])[address], [address] [address] MCV (RBC) [Entitic vol] 77 fL Low 80-100 [facility] Comment on above: Performed By: #### Snehal CANALES, BMP, , 2776-06 ####[facility] ([id number])[address], [address] [address] Platelet mean volume (Bld) [Entitic vol] 8.8 fL Normal 7-12 [facility] Comment on above: Performed By: #### Snehal CANALES, BMP, , 2776-06 ####[facility] ([id number])[address], [address], [place] [address] Platelets (Bld) [#/Vol] 207 10*3/uL Normal 150-450 [facility] Comment on above: Performed By: #### C ALLY, KENDALL, , 2776-06 ####[facility] ([id number])[address], [address], [place] [address] RBC COUNT 3.21 X10E12/L Low 4.10-5.70 [facility] Comment on above: Performed By: #### KENDALL AHUJA, , 2776-06 ####[facility] ([id number])[address] [place] [address] WBC (Bld) [#/Vol] 8.1 10*3/uL Normal 4.0-11.0 [facility] Comment on above: Performed By: #### KENDALL AHUJA, , 2776-06 ####[facility] ([id number])[address], [address] [place] [address] Glucose Glucometer (dC) [M ass/Vol]on 11-13-2023 Glucose [Mass/Vol] 230 mg/dL High 65-99 [facility] Glucose [Mass/Vol] 225 mg/dL High 65-99 [facility] Glucose [Mass/Vol] 331 mg/dL High 65-99 [facility] Glucose [Mass/Vol] 190 mg/dL High 65-99 [facility] MAGNESIUMon 11-13-2023 Magnesium [Mass/Vol] 2.1 mg/dL Normal 1.8-2.[address] [facility] Comment on above: Performed By: #### Snehal CANALES, KENDALL, , 2776-06 ####[facility] ([id number])[address], [address], [place] [address] PHOSPHORUSon 11-13-2023 Phosphate [Mass/Vol] 3.8 mg/dL Normal 2.4-4.[address] [facility] Comment on above: Performed By: #### Snehal CANALES BMP, 86562-5, 2777-1 ####[facility] ([id number])[address] [place] [address] BASIC METABOLIC PANLon 11-11 Anion gap [Moles/Vol] 11 mmol/L Normal 5-15 [facility] Comment on above: Performed By: #### Snehal CANALES, BMP #### [facility] ([id number]) [address], [address] [place] [address] Calcium [Mass/Vol] 9.0 mg/dL Normal 8.5-10.5 [facility] Comment on above: Performed By: #### Snehal CANALES, BMP #### [facility] ([id number]) [address], [address] [place] [address] Chloride [Moles/Vol] 98 mmol/L Normal 98-[address] [facility] Comment on above: Performed By: #### Snehal CANALES, BMP #### [facility] ([id number]) [address], [address] [place] [address] CO2 [Moles/Vol] 25 mmol/L Normal 22-32 [facility] Comment on above: Performed By: #### Snehal CANALES, BMP #### [facility] ([id number]) [address], [address] [place] [address] Creatinine [Mass/Vol] 1.40 mg/dL High 0.60-1.30 [facility] Comment on above: Result Comment: METH OD TRACEABLE TO IDMS STANDARD Performed By: #### Snehal CANALES, BMP #### [facility] ([id number]) [address], [address] [place] [address] GFR/1.73 sq M.predicted among non-blacks MDRD (S/P/Bld) [Vol rate/Area] 58 mL/min/{1.73_m2} Low >59 [facility] Comment on above: Result Comment: Reported eGFR is based on the CKD-EPI 2020 equation that does not use a race coefficient. Performed By: #### Snehal CANALES, BMP #### [facility] ([id number]) [address], [address] [place] [address] Glucose [Mass/Vol] 194 mg/dL High 65-99 [facility] Comment on above: Performed By: #### Snehal CANALES, BMP #### [facility] ([id number]) [address], [address] [place] [address] Potassium [Moles/Vol] 4.0 mmol/L Normal 3.5-5.0 [facility] Comment on above: Performed By: #### Snehal CANALES, BMP #### [facility] ([id number]) [address], [address] [place] [address] Sodium [Moles/Vol] 134 mmol/L Normal 134-146 [facility] Comment on above: Performed By: #### Snehal CANALES, BMP #### [facility] ([id number]) [address], [address] [place] [address] Urea nitrogen [Mass/Vol] 23 mg/dL Normal 5-23 [facility] Comment on above: Performed By: #### Snehal CANALES, BMP #### [facility] [facility] ([id number]) [address], [address] [place] [address] COMPLETE BLOOD COUNTon 11-11 Erythrocyte distribution width (RBC) [Ratio] 24.1 % High 11.5-15.0 [facility] Comment on above: Performed By: #### Snehal CANALES, BMP #### [facility] ([id number]) [address] [address] [place] [address] Hematocrit (Bld) [Volume fraction] 25.8 % Low 39-49 [facility] Comment on above: Performed By: #### Snehal CANALES, BMP #### [facility] ([id number]) [address], [address] [place] [address] Hemoglobin (Bld) [Mass/Vol] 8.6 g/dL Low 13.0-17.0 [facility] Comment on above: Performed By: #### C ALLY, BMP #### [facility] ([id number]) [address], [address] [place] [address] MCH (RBC) [Entitic mass] 25.7 pg Low 27-34 [facility] Comment on above: Performed By: #### C ALLY, BMP #### [facility] ([id number]) [address], [address] [place] [address] MCHC (RBC) [Mass/Vol] 33.5 g/dL Normal 32-36 [facility] Comment on above: Performed By: #### Snehal CANALES, BMP #### [facility] ([id number]) [address], [address] [place] [address] MCV (RBC) [Entitic vol] 77 fL Low 80-100 [facility] Comment on above: Performed By: #### C ALLY, BMP #### [facility] ([id number]) [address], [address] [place] [address] Platelet mean volume (Bld) [Entitic vol] 9.2 fL Normal 7-12 [facility] Comment on above: Performed By: #### C ALLY, BMP #### [facility] ([id number]) [address], [address] [place] [address] Platelets (Bld) [#/Vol] 185 10*3/uL Normal 150-450 [facility] Comment on above: Performed By: #### C ALLY, BMP #### [facility] ([id number]) [address], [address] [place] [address] RBC COUNT 3.37 X10E12/L Low 4.10-5.70 [facility] Comment on above: Performed By: #### Snehal CANALES, BMP #### [facility] ([id number]) [address], [address] [place] [address] WBC (Bld) [#/Vol] 10.0 10*3/uL Normal 4.0-11.0 [facility] Comment on above: Performed By: #### Snehal CANALES, BMP #### [facility] ([id number]) [address], [address] [place] [address] Glucose Glucometer (BldC) [M ass/Vol]on 11-12-2023 Glucose [Mass/Vol] 230 mg/dL High 65-99 [facility] Glucose [Mass/Vol] 280 mg/dL High 65-99 [facility] Glucose [Mass/Vol] 268 mg/dL High 65-99 [facility] Glucose [Mass/Vol] 220 mg/dL High 65-99 [facility] Glucose [Mass/Vol] 205 mg/dL High 65-99 [facility] MAGNESIUMon 11-12-2023 Magnesium [Mass/Vol] 1.8 mg/dL Normal 1.8-2.[address] [facility] Comment on above: Performed By: #### Snehal CANALES, BMP #### [facility] ([id number]) [address], [address] [place] [address] PHOSPHORUSon 11-12-2023 Phosphate [Mass/Vol] 3.8 mg/dL Normal 2.4-4.[address] [facility] Comment on above: Performed By: #### Snehal CANALES, BMP #### [facility] ([id number]) [address], [address] [place] [address] BASIC METABOLIC PANLon 11-10 Anion gap [Moles/Vol] 8 mmol/L Normal 5-15 [facility] Comment on above: Performed By: #### Snehal CANALES, BMP #### [facility] ([id number]) [address], [address] [place] [address] Calcium [Mass/Vol] 8.7 mg/dL Normal 8.5-10.5 [facility] Comment on above: Performed By: #### C ALLY, BMP #### [facility] ([id number]) [address], [address] [place] [address] Chloride [Moles/Vol] 99 mmol/L Normal 98-[address] [facility] Comment on above: Performed By: #### C ALLY, BMP #### [facility] ([id number]) [address], [address] [place] [address] CO2 [Moles/Vol] 26 mmol/L Normal 22-32 [facility] Comment on above: Performed By: #### Snehal CANALSE, BMP #### [facility] ([id number]) [address], [address] [place] [address] Creatinine [Mass/Vol] 1.45 mg/dL High 0.60-1.30 [facility] Comment on above: Result Comment: METH OD TRACEABLE TO IDMS STANDARD Performed By: #### C ALLY, BMP #### [facility] ([id number]) [address], [address] [place] [address] GFR/1.73 sq M.predicted among non-blacks MDRD (S/P/Bld) [Vol rate/Area] 56 mL/min/{1.73_m2} Low >59 [facility] Comment on above: Result Comment: Reported eGFR is based on the CKD-EPI 2020 equation that does not use a race coefficient. Performed By: #### C ALLY, BMP #### [facility] ([id number]) [address], [address] [place] [address] Glucose [Mass/Vol] 153 mg/dL High 65-99 [facility] Comment on above: Performed By: #### C ALLY, BMP #### [facility] ([id number]) [address], [address] [place] [address] Potassium [Moles/Vol] 3.9 mmol/L Normal 3.5-5.0 [facility] Comment on above: Performed By: #### C ALLY, BMP #### [facility] ([id number]) [address], [address] [place] [address] Sodium [Moles/Vol] 133 mmol/L Low 134-146 [facility] Comment on above: Performed By: #### C ALLY, BMP #### [facility] ([id number]) [address], [address] [place] [address] Urea nitrogen [Mass/Vol] 27 mg/dL High 5-23 [facility] Comment on above: Performed By: #### C ALLY, BMP #### [facility] ([id number]) [address], [address] [place] [address] COMPLETE BLOOD COUNTon 11-10 Erythrocyte distribution width (RBC) [Ratio] 24.2 % High 11.5-15.0 [facility] Comment on above: Performed By: #### C ALLY, BMP #### [facility] ([id number]) [address], [address] [place] [address] Hematocrit (Bld) [Volume fraction] 25.1 % Low 39-49 [facility] Comment on above: Performed By: #### C ALLY, BMP #### [facility] ([id number]) [address], [address] [place] [address] Hemoglobin (Bld) [Mass/Vol] 8.2 g/dL Low 13.0-17.0 [facility] Comment on above: Performed By: #### C ALLY, BMP #### [facility] ([id number]) [address], [address] [place] [address] MCH (RBC) [Entitic mass] 25.5 pg Low 27-34 [facility] Comment on above: Performed By: #### C ALLY, BMP #### [facility] ([id number]) [address], [address] [place] [address] MCHC (RBC) [Mass/Vol] 32.7 g/dL Normal 32-36 [facility] Comment on above: Performed By: #### C ALLY, BMP #### [facility] ([id number]) [address], [address] [place] [address] MCV (RBC) [Entitic vol] 78 fL Low 80-100 [facility] Comment on above: Performed By: #### C ALLY, BMP #### [facility] ([id number]) [address], [address] [place] [address] Platelet mean volume (Bld) [Entitic vol] 9.0 fL Normal 7-12 [facility] Comment on above: Performed By: #### C ALLY, BMP #### [facility] ([id number]) [address], [address] [place] [address] Platelets (Bld) [#/Vol] 152 10*3/uL Normal 150-450 [facility] Comment on above: Performed By: #### C ALLY, BMP #### [facility] ([id number]) [address], [address] [place] [address] RBC COUNT 3.22 X10E12/L Low 4.10-5.70 [facility] Comment on above: Performed By: #### C ALLY, BMP #### [facility] ([id number]) [address], [address] [place] [address] WBC (Bld) [#/Vol] 9.8 10*3/uL Normal 4.0-11.0 [facility] Comment on above: Performed By: #### C ALLY, BMP #### [facility] ([id number]) [address], [address] [place] [address] Glucose Glucometer (BldC) [M ass/Vol]on 11-11-2023 Glucose [Mass/Vol] 184 mg/dL High 65-99 [facility] Glucose [Mass/Vol] 179 mg/dL High 65-99 [facility] Glucose [Mass/Vol] 222 mg/dL High 65-99 [facility] Glucose [Mass/Vol] 303 mg/dL High 65-99 [facility] MAGNESIUMon 11-11-2023 Magnesium [Mass/Vol] 2.4 mg/dL Normal 1.8-2.[address] [facility] Comment on above: Performed By: #### Snehal CANALES BMP #### [facility] ([id number]) [address], [address] [place] [address] Magnesium [Mass/Vol] 1.9 mg/dL Normal 1.8-2.[address] [facility] Comment on above: Performed By: #### Snehal CANALES BMP #### [facility] ([id number]) [address], [address] [place] [address] PHOSPHORUSon 11-11-2023 Phosphate [Mass/Vol] 3.2 mg/dL Normal 2.4-4.[address] [facility] Comment on above: Performed By: #### Snehal CANALES BMP #### [facility] ([id number]) [address], [address] [place] [address] BASIC METABOLIC PANLon 11-09 Anion gap [Moles/Vol] 6 mmol/L Normal 5-15 [facility] Comment on above: Performed By: #### KENDALL AHUJA, , [address] ####[facility] ([id number])[address], [address], [place] [address] Calcium [Mass/Vol] 8.5 mg/dL Normal 8.5-10.5 [facility] Comment on above: Performed By: #### KENDALL AHUJA, , 2776-06 ####[facility] ([id number])[address], [address] [address] Chloride [Moles/Vol] 102 mmol/L Normal 98-[address] [facility] Comment on above: Performed By: #### C ALLY, KENDALL, , 2776-06 ####[facility] ([id number])[address], [address], [place] [address] CO2 [Moles/Vol] 26 mmol/L Normal 22-32 [facility] Comment on above: Performed By: #### C ALLY, [facility], , 2776-06 ####[facility] ([id number])[address] [facility] [address], [place] [address] Creatinine [Mass/Vol] 1.59 mg/dL High 0.60-1.30 [facility] Comment on above: Result Comment: METH OD TRACEABLE TO IDMS STANDARD Performed By: #### C ALLY, [facility], , 2776-06 ####[facility] ([id number])[address] [address] GFR/1.73 sq M.predicted among non-blacks MDRD (S/P/Bld) [Vol rate/Area] 50 mL/min/{1.73_m2} Low >59 [facility] Comment on above: Result Comment: Reported eGFR is based on the CKD-EPI 2020 equation that does not use a race coefficient. Performed By: #### C ALLY, KENDALL, , 2776-06 ####[facility] ([id number])[address], [place] [address] Glucose [Mass/Vol] 145 mg/dL High 65-99 [facility] Comment on above: Performed By: #### Snehal CANALES, KENDALL, , 2776-06 ####[facility] ([id number])[address] [address] [place] [address] Potassium [Moles/Vol] 3.9 mmol/L Normal 3.5-5.0 [facility] Comment on above: Performed By: #### C ALLY, KENDALL, , 2776-06 ####[facility] ([id number])[address], [address] [place] [address] Sodium [Moles/Vol] 134 mmol/L Normal 134-146 [facility] Comment on above: Performed By: #### C ALLY, [facility], , 2776-06 ####[facility] ([id number])[address], [address] [address] Urea nitrogen [Mass/Vol] 23 mg/dL Normal 5-23 [facility] Comment on above: Performed By: #### Snehal CANALES, KENDALL, , 2776-06 ####[facility] ([id number])[address], [address] [address] COMPLETE BLOOD COUNTon 11-09 Erythrocyte distribution width (RBC) [Ratio] 24.9 % High 11.5-15.0 [facility] Comment on above: Performed By: #### Snehal CANALES, KENDALL, , 2776-06 ####[facility] ([id number])[address] [address] Hematocrit (Bld) [Volume fraction] 24.5 % Low 39-49 [facility] Comment on above: Performed By: #### Snehal CANALES, BMP, , 2776-06 ####[facility] ([id number])[address] [address] Hemoglobin (Bld) [Mass/Vol] 7.9 g/dL Low 13.0-17.0 [facility] Comment on above: Performed By: #### Snehal CANALES, BMP, , 2776-06 ####[facility] ([id number])[address], [address] [address] MCH (RBC) [Entitic mass] 25.4 pg Low 27-34 [facility] Comment on above: Performed By: #### C KENDALL CANALES, , 2776-06 ####[facility] ([id number])[address], [address] [address] MCHC (RBC) [Mass/Vol] 32.4 g/dL Normal 32-36 [facility] Comment on above: Performed By: #### C ALLY, KENDALL, , 2776-06 ####[facility] ([id number])[address] [address] MCV (RBC) [Entitic vol] 78 fL Low 80-100 [facility] Comment on above: Performed By: #### KENDALL AHUJA, , 2776-06 ####[facility] ([id number])[address] [address] Platelet mean volume (Bld) [Entitic vol] 9.1 fL Normal 7-12 [facility] Comment on above: Performed By: #### KENDALL AHUJA, , 2776-06 ####[facility] ([id number])[address], [address] [address] Platelets (Bld) [#/Vol] 142 10*3/uL Low 150-450 [facility] Comment on above: Performed By: #### Snehal CANALES, KENDALL, , 2776-06 ####[facility] ([id number])[address], [address] [address] RBC COUNT 3.14 X10E12/L Low 4.10-5.70 [facility] Comment on above: Performed By: #### Snehal CANALES BMP, , 2776-06 ####[facility] ([id number])[address] [address] WBC (Bld) [#/Vol] 9.7 10*3/uL Normal 4.0-11.0 [facility] Comment on above: Performed By: #### KENDALL AHUJA, , 2776-06 ####[facility] ([id number])[address], [place] [address] Glucose Glucometer (BldC) [M ass/Vol]on 11-10-2023 Glucose [Mass/Vol] 168 mg/dL High 65-99 [facility] Glucose [Mass/Vol] 245 mg/dL High 65-99 [facility] Glucose [Mass/Vol] 155 mg/dL High 65-99 [facility] Glucose [Mass/Vol] 153 mg/dL High 65-99 [facility] MAGNESIUMon 11-10-2023 Magnesium [Mass/Vol] 2.2 mg/dL Normal 1.8-2.[address] [facility] Comment on above: Performed By: #### KENDALL AHUJA #### [facility] ([id number]) [address], [address] [place] [address] Magnesium [Mass/Vol] 1.8 mg/dL Normal 1.8-2.[address] [facility] Comment on above: Performed By: #### KENDALL AHUJA, , 2776-06 ####[facility] ([id number])[address], [address] [address] PHOSPHORUSon 11-10-2023 Phosphate [Mass/Vol] 3.1 mg/dL Normal 2.4-4.[address] [facility] Comment on above: Performed By: #### KENDALL AHUJA, , 2776-06 ####[facility] ([id number])[address] [address] BASIC METABOLIC PANLon 11-08 Anion gap [Moles/Vol] 9 mmol/L Normal 5-15 [facility] Comment on above: Performed By: #### C BC, 2639-3, BMP, 2156-6, 04281-3, 2776-1 ####[facility] ([id number])[address], [address] [address] Calcium [Mass/Vol] 8.4 mg/dL Low 8.5-10.5 [facility] Comment on above: Performed By: #### Snheal CANALES, 2639-3, BMP, 2156-6, 93661-8, 2776-1 ####[facility] ([id number])[address], [address] [address] Chloride [Moles/Vol] 104 mmol/L Normal 98-[address] [facility] Comment on above: Performed By: #### Snehal CANALES, 2639-3, BMP, 2156-6, , 2776-1 ####[facility] ([id number])[address] [address] CO2 [Moles/Vol] 25 mmol/L Normal 22-32 [facility] Comment on above: Performed By: #### Snehal CANALES, 2639-3, BMP, 2156-6, 48038-7, 2776-1 ####[facility] ([id number])[address], [address] [address] Creatinine [Mass/Vol] 1.35 mg/dL High 0.60-1.30 [facility] Comment on above: Result Comment: METH OD TRACEABLE TO IDMS STANDARD Performed By: #### Snehal BC, 2639-3, BMP, 2156-6, 32480-3, 2776-1 ####[facility] ([id number])[address] [address] GFR/1.73 sq M.predicted among non-blacks MDRD (S/P/Bld) [Vol rate/Area] 61 mL/min/{1.73_m2} Normal >59 [facility] Comment on above: Result Comment: Reported eGFR is based on the CKD-EPI 2020 equation that does not use a race coefficient. Performed By: #### C BC, 2639-3, BMP, 2157-6, 38085-9, 2776- ####[facility] ([id number])[address], [place] [address] Glucose [Mass/Vol] 217 mg/dL High 65-99 [facility] Comment on above: Performed By: #### C ALLY, 2639-3, BMP, 2156-6, 43362-9, 2776- ####[facility] ([id number])[address], [address], [place] [address] Potassium [Moles/Vol] 4.2 mmol/L Normal 3.5-5.0 [facility] Comment on above: Performed By: #### Snehal CANALES, 2639-3, BMP, 2156-6, 89581-7, 2776-1 ####[facility] ([id number])[address], [place] [address] Sodium [Moles/Vol] 138 mmol/L Normal 134-146 [facility] Comment on above: Performed By: #### Snehal BC, 2639-3, BMP, 2156-6, 15717-5, 2776-1 ####[facility] ([id number])[address] [address], [place] [address] Urea nitrogen [Mass/Vol] 23 mg/dL Normal 5-23 [facility] Comment on above: Performed By: #### C BC, 2639-3, BMP, 215-6, 66726-6, 2776-1 ####[facility] ([id number])[address], [address], [place] [address] CK [Catalytic activity/Vol]o n 11-09-2023 CPK 44 U/L Normal 24-195 [facility] Comment on above: Performed By: #### 2 157-6, 2638-3 ####[facility] ([id number])[address], [address], [place] [address] CPK 30 U/L Normal 24-195 [facility] Comment on above: Performed By: #### C BC, 2639-3, BMP, 2156-11, , 1 ####[facility] ([id number])[address], [address] [place] [address] COMPLETE BLOOD COUNTon 11-08 Erythrocyte distribution width (RBC) [Ratio] 24.9 % High 11.5-15.0 [facility] Comment on above: Performed By: #### C ALLY, 2638-3, BMP, 2156-11, , 2776-06 ####[facility] ([id number])[address], [address], [place] [address] Hematocrit (Bld) [Volume fraction] 26.8 % Low 39-49 [facility] Comment on above: Performed By: #### C BC, 2638-3, BMP, 2156-11, , 1 ####[facility] ([id number])[address], [address] [place] [address] Hemoglobin (Bld) [Mass/Vol] 8.7 g/dL Low 13.0-17.0 [facility] Comment on above: Performed By: #### C BC, 9-3, BMP, 2156-11, , 2776-06 ####[facility] ([id number])[address], [address] [place] [address] MCH (RBC) [Entitic mass] 24.8 pg Low 27-34 [facility] Comment on above: Performed By: #### C BC, 2639-3, BMP, 2156-6, 76881-6, 2776- ####[facility] ([id number])[address], [address] [place] [address] MCHC (RBC) [Mass/Vol] 32.6 g/dL Normal 32-36 [facility] Comment on above: Performed By: #### Snehal CANALES, 2639-3, BMP, 2156-6, 08010-5, 2776- ####[facility] ([id number])[address], [address] [place] [address] MCV (RBC) [Entitic vol] 76 fL Low 80-100 [facility] Comment on above: Performed By: #### Snehal CANALES, 2639-3, BMP, 2156-, 05161-5, 2776- ####[facility] ([id number])[address], [address] [place] [address] Platelet mean volume (Bld) [Entitic vol] 9.3 fL Normal 7-12 [facility] Comment on above: Performed By: #### Snehal CANALES, 2639-3, BMP, 2156-, , 2776-06 ####[facility] ([id number])[address] [address] [place] [address] Platelets (Bld) [#/Vol] 184 10*3/uL Normal 150-450 [facility] Comment on above: Performed By: #### Snehal BC, 2639-3, BMP, 2156-6, 84303-5, 2776- ####[facility] ([id number])[address] [address] [place] [address] RBC COUNT 3.53 X10E12/L Low 4.10-5.70 [facility] Comment on above: Performed By: #### Snehal CANALES, 2639-3, BMP, 2156-6, , 2776-1 ####[facility] ([id number])[address], [address] [place] [address] WBC (Bld) [#/Vol] 11.0 10*3/uL Normal 4.0-11.0 [facility] Comment on above: Performed By: #### C ALLY, 2639-3, BMP, 2156-11, , 2776-1 ####[facility] ([id number])[address] [address] [place] [address]21 Glucose Glucometer (BldC) [M ass/Vol]on 11-09-2023 Glucose [Mass/Vol] 243 mg/dL High 65-99 [facility] Glucose [Mass/Vol] 184 mg/dL High 65-99 [facility] Glucose [Mass/Vol] 199 mg/dL High 65-99 [facility] Glucose [Mass/Vol] 218 mg/dL High 65-99 [facility] Heparin unfractionated Chrom ogenic method Qn (PPP)on 11-09-2023 ANTI XA UFH 0.15 IU/mL Low 0.30-0.70 [facility] Comment on above: Result Comment: Opti mal time for testing is 6 hrs post dosage This test is specific for monitoring patients on UFH, and is not recommended for use with other Anti-Xa medications. Performed By: #### 3 274-8 ####[facility] ([id number])0 [address] [address] [place] [address] MAGNESIUMon 11-09-2023 Magnesium [Mass/Vol] 2.2 mg/dL Normal 1.8-2.[address] [facility] Comment on above: Performed By: #### C BC, 2639-3, BMP, 2156-11, , 1 ####[facility] ([id number])[address], [address] [place] [address] 16098 Myoglobin [Mass/Vol]on 11-08 SERUM MYOGLOBIN 97.7 ng/mL Normal 17.4-105.7 [facility] Comment on above: Performed By: #### 2 157-6, 2639-3 ####[facility] ([id number])[address] [address] SERUM MYOGLOBIN 51.7 ng/mL Normal 17.4-105.7 [facility] Comment on above: Performed By: #### C BC, 2639-3, BMP, 2156-11, 25245-3, 2776-1 ####[facility] ([id number])[address], [address] [address] PHOSPHORUSon 11-09-2023 Phosphate [Mass/Vol] 4.4 mg/dL Normal 2.4-4.[address] [facility] Comment on above: Performed By: #### C BC, 2639-3, BMP, 2156-11, , 2776-1 ####[facility] ([id number])[address], [address] [address] BASIC METABOLIC PANLon 11-07 Anion gap [Moles/Vol] 9 mmol/L Normal 5-15 [facility] [facility] Comment on above: Performed By: #### P INR #### [facility] ([id number]) [address], [address] [place] [address] Calcium [Mass/Vol] 8.4 mg/dL Low 8.5-10.5 [facility] Comment on above: Performed By: #### P INR #### [facility] ([id number]) [address], [address] [place] [address] Chloride [Moles/Vol] 106 mmol/L Normal 98-[address] [facility] Comment on above: Performed By: #### P INR #### [facility] ([id number]) [address], [address] [place] [address] CO2 [Moles/Vol] 24 mmol/L Normal 22-32 [facility] Comment on above: Performed By: #### P INR #### [facility] ([id number]) [address], [address] [place] [address] Creatinine [Mass/Vol] 1.30 mg/dL Normal 0.60-1.30 [facility] Comment on above: Result Comment: METH OD TRACEABLE TO IDMS STANDARD Performed By: #### P INR #### [facility] ([id number]) [address], [address] [place] [address] GFR/1.73 sq M.predicted among non-blacks MDRD (S/P/Bld) [Vol rate/Area] 64 mL/min/{1.73_m2} Normal >59 [facility] Comment on above: Result Comment: Reported eGFR is based on the CKD-EPI 2020 equation that does not use a race coefficient. Performed By: #### P INR #### [facility] ([id number]) [address], [address] [place] [address] Glucose [Mass/Vol] 163 mg/dL High 65-99 [facility] Comment on above: Performed By: #### P INR #### [facility] ([id number]) [address], [address] [place] [address] Potassium [Moles/Vol] 4.1 mmol/L Normal 3.5-5.0 [facility] Comment on above: Performed By: #### P INR #### [facility] ([id number]) [address], [address] [place] [address] Sodium [Moles/Vol] 139 mmol/L Normal 134-146 [facility] Comment on above: Performed By: #### P INR #### [facility] ([id number]) [address], [address] [place] [address] Urea nitrogen [Mass/Vol] 23 mg/dL Normal 5-23 [facility] Comment on above: Performed By: #### P INR #### [facility] ([id number]) [address], [address] [place] [address] Anion gap [Moles/Vol] 9 mmol/L Normal 5-15 [facility] Comment on above: Performed By: #### C BC, BMP #### [facility] ([id number]) [address], [address] [place] [address] Calcium [Mass/Vol] 8.8 mg/dL Normal 8.5-10.5 [facility] Comment on above: Performed By: #### C BC, BMP #### [facility] ([id number]) [address], [address] [place] [address] Chloride [Moles/Vol] 104 mmol/L Normal 98-[address] [facility] Comment on above: Performed By: #### C BC, BMP #### [facility] ([id number]) [address], [address] [place] [address] CO2 [Moles/Vol] 25 mmol/L Normal 22-32 [facility] Comment on above: Performed By: #### C BC, BMP #### [facility] ([id number]) [address], [address] [place] [address] Creatinine [Mass/Vol] 1.70 mg/dL High 0.60-1.30 [facility] Comment on above: Result Comment: METH OD TRACEABLE TO IDMS STANDARD Performed By: #### C BC, BMP #### [facility] ([id number]) [address], [address] [place] [address] GFR/1.73 sq M.predicted among non-blacks MDRD (S/P/Bld) [Vol rate/Area] 46 mL/min/{1.73_m2} Low >59 [facility] Comment on above: Result Comment: Reported eGFR is based on the CKD-EPI 2020 equation that does not use a race coefficient. Performed By: #### C ALLY, BMP #### [facility] ([id number]) [address], [address] [place] [address] Glucose [Mass/Vol] 111 mg/dL High 65-99 [facility] Comment on above: Performed By: #### C BC, BMP #### [facility] ([id number]) [address], [address] [place] [address] Potassium [Moles/Vol] 3.8 mmol/L Normal 3.5-5.0 [facility] Comment on above: Performed By: #### C ALLY, BMP #### [facility] ([id number]) [address], [address] [place] [address] Sodium [Moles/Vol] 138 mmol/L Normal 134-146 [facility] Comment on above: Performed By: #### C ALLY, BMP #### [facility] ([id number]) [address], [address] [place] [address] Urea nitrogen [Mass/Vol] 28 mg/dL High 5-23 [facility] Comment on above: Performed By: #### C ALLY, BMP #### [facility] ([id number]) [address], [address] [place] [address] CK [Catalytic activity/Vol]o n 11-08-2023 CPK 26 U/L Normal 24-195 [facility] Comment on above: Performed By: #### P INR #### [facility] ([id number]) [address], [address] [place] [address] COMPLETE BLOOD COUNTon 11-07 Erythrocyte distribution width (RBC) [Ratio] 24.8 % High 11.5-15.0 [facility] Comment on above: Performed By: #### P INR #### [facility] ([id number]) [address], [address] [place] [address] Hematocrit (Bld) [Volume fraction] 29.3 % Low 39-49 [facility] Comment on above: Performed By: #### P INR #### [facility] ([id number]) [address] [place] [address] Hemoglobin (Bld) [Mass/Vol] 9.6 g/dL Low 13.0-17.0 [facility] Comment on above: Performed By: #### P INR #### [facility] ([id number]) [address] [place] [address] MCH (RBC) [Entitic mass] 24.9 pg Low 27-34 [facility] Comment on above: Performed By: #### P INR #### [facility] ([id number]) [address] [place] [address] MCHC (RBC) [Mass/Vol] 32.7 g/dL Normal 32-36 [facility] Comment on above: Performed By: #### P INR #### [facility] ([id number]) [address] [place] [address] MCV (RBC) [Entitic vol] 76 fL Low 80-100 [facility] Comment on above: Performed By: #### P INR #### [facility] ([id number]) [address] [place] [address] Platelet mean volume (Bld) [Entitic vol] 8.7 fL Normal 7-12 [facility] Comment on above: Performed By: #### P INR #### [facility] ([id number]) [address] [place] [address] Platelets (Bld) [#/Vol] 169 10*3/uL Normal 150-450 [facility] Comment on above: Performed By: #### P INR #### [facility] ([id number]) [address], [address] [place] [address] RBC COUNT 3.85 X10E12/L Low 4.10-5.70 [facility] Comment on above: Performed By: #### P INR #### [facility] ([id number]) [address], [address] [place] [address] WBC (Bld) [#/Vol] 13.5 10*3/uL High 4.0-11.0 [facility] Comment on above: Performed By: #### P INR #### [facility] ([id number]) [address], [address] [place] [address] Erythrocyte distribution width (RBC) [Ratio] 25.2 % High 11.5-15.0 [facility] Comment on above: Performed By: #### C BC, BMP #### [facility] ([id number]) [address], [address] [place] [address] Hematocrit (Bld) [Volume fraction] 33.0 % Low 39-49 [facility] Comment on above: Performed By: #### C BC, BMP #### [facility] ([id number]) [address], [address] [place] [address] Hemoglobin (Bld) [Mass/Vol] 10.8 g/dL Low 13.0-17.0 [facility] Comment on above: Performed By: #### C BC, BMP #### [facility] ([id number]) [address], [address] [place] [address] MCH (RBC) [Entitic mass] 25.0 pg Low 27-34 [facility] Comment on above: Performed By: #### C BC, BMP #### [facility] ([id number]) [address], [address] [place] [address] MCHC (RBC) [Mass/Vol] 32.8 g/dL Normal 32-36 [facility] Comment on above: Performed By: #### C ALLY, BMP #### [facility] ([id number]) [address], [address] [place] [address] MCV (RBC) [Entitic vol] 76 fL Low 80-100 [facility] Comment on above: Performed By: #### C ALLY, BMP #### [facility] ([id number]) [address], [address] [place] [address] Platelet mean volume (Bld) [Entitic vol] 8.8 fL Normal 7-12 [facility] Comment on above: Performed By: #### C ALLY, BMP #### [facility] ([id number]) [address], [address] [place] [address] Platelets (Bld) [#/Vol] 172 10*3/uL Normal 150-450 [facility] Comment on above: Performed By: #### Snehal CANALES, BMP #### [facility] ([id number]) [address], [address] [place] [address] RBC COUNT 4.33 X10E12/L Normal 4.10-5.70 [facility] Comment on above: Performed By: #### Snehal CANALES, BMP #### [facility] ([id number]) [address], [address] [place] [address] WBC (Bld) [#/Vol] 9.3 10*3/uL Normal 4.0-11.0 [facility] Comment on above: Performed By: #### Snehal CANALES, BMP #### [facility] ([id number]) [address], [address] [place] [address] Glucose Glucometer (BldC) [M ass/Vol]on 11-08-2023 Glucose [Mass/Vol] 162 mg/dL High 65-99 [facility] Glucose [Mass/Vol] 96 mg/dL Normal 65-99 [facility] Glucose [Mass/Vol] 142 mg/dL High 65-99 [facility] Glucose [Mass/Vol] 114 mg/dL High 65-99 [facility] Lactate (P ekaterina) [Moles/Vol]o n 11-08-2023 LACTATE W/REFLEX 1.0 mmol/L Normal 0.4-2.0 [facility] Comment on above: Result Comment: Result did not trigger repeat Lactate, re-order if needed. Performed By: #### P INR #### [facility] ([id number]) [address], [address] [place] [address] MAGNESIUMon 11-08-2023 Magnesium [Mass/Vol] 1.7 mg/dL Low 1.8-2.[address] [facility] Comment on above: Performed By: #### P INR #### [facility] ([id number]) [address], [address] [place] [address] Myoglobin [Mass/Vol]on 11-07 SERUM MYOGLOBIN 33.1 ng/mL Normal 17.4-105.7 [facility] Comment on above: Performed By: #### P INR #### [facility] ([id number]) [address], [address] [place] [address] PHOSPHORUSon 11-08-2023 Phosphate [Mass/Vol] 4.0 mg/dL Normal 2.4-4.[address] [facility] Comment on above: Performed By: #### P INR #### [facility] ([id number]) [address], [address] [place] [address] PROTIME AND INRon 11-08-2023 INR Coag (PPP) [Relative time] 1.3 {INR} High 0.8-1.1 [facility] Comment on above: Performed By: #### P INR #### [facility] ([id number]) [address], [address] [place] [address] PT Coag (PPP) [Time] 14.7 s High 9.8-13.[address] [facility] Comment on above: Performed By: #### P INR #### [facility] ([id number]) [address] [place] [address] RAPID CARDIACon 11-08-2023 COURTNEY'S TEST Normal [facility] Comment on above: Performed By: #### A FAB5 #### [facility] ([id number]) [address] [place] [address] Base excess Calc (Bld) [Moles/Vol] 0.1 mmol/L Normal 0.0-2.0 [facility] Comment on above: Performed By: #### A FAB5 #### [facility] ([id number]) [address] [place] [address] Body temperature 98.6 [degF] Normal 37.0 [facility] Comment on above: Performed By: #### A FAB5 #### [facility] ([id number]) [address] [place] [address] Glucose [Mass/Vol] 117 mg/dL High 65-99 [facility] Comment on above: Performed By: #### A FAB5 #### [facility] ([id number]) [address] [place] [address] HCO3 (Bld) [Moles/Vol] 24.8 mmol/L Normal 22-26 [facility] Comment on above: Performed By: #### A FAB5 #### [facility] ([id number]) [address] [place] [address] Hematocrit (Bld) [Volume fraction] 31 % Low 39-49 [facility] Comment on above: Performed By: #### A FAB5 #### [facility] ([id number]) [address] [place] [address] Hemoglobin (Bld) [Mass/Vol] 10.2 g/dL Low 13.0-17.0 [facility] Comment on above: Performed By: #### A FAB5 #### [facility] ([id number]) [address] [place] [address] INSP. O2 CONC. 100 % Normal [facility] Comment on above: Performed By: #### A FAB5 #### [facility] ([id number]) [address] [place] [address] IONIZED CALCIUM 4.8 mg/dL Normal 4.5-5.3 [facility] Comment on above: Performed By: #### A FAB5 #### [facility] ([id number]) [address] [place] [address] Oxygen (Bld) [Partial pressure] 167 mm[Hg] High 80-100 [facility] Comment on above: Performed By: #### A FAB5 #### [facility] ([id number]) [address] [place] [address] Oxygen saturation in Blood 100.8 % Normal >90 [facility] Comment on above: Performed By: #### A FAB5 #### [facility] ([id number]) [address] [place] [address] PCO2 39.7 MMHG Normal 35-45 [facility] Comment on above: Performed By: #### A FAB5 #### [facility] ([id number]) [address] [place] [address] pH (Bld) 7.404 [pH] Normal 7.350-7.45 0 [facility] Comment on above: Performed By: #### A FAB5 #### [facility] ([id number]) [address] [place] [address] Potassium [Moles/Vol] 3.8 mmol/L Normal 3.5-5.0 [facility] Comment on above: Performed By: #### A FAB5 #### [facility] ([id number]) [address] [place] [address] SAMPLE SITE KECIA Normal [facility] Comment on above: Performed By: #### A FAB5 #### [facility] ([id number]) [address] [place] [address] SAMPLE TYPE Arterial Normal [facility] Comment on above: Performed By: #### A FAB5 #### [facility] ([id number]) [address] [place] [address] RAPID CARDIAC W/ NAon 2023 COURTNEY'S TEST Normal [facility] Comment on above: Performed By: #### P INR #### [facility] ([id number]) [address] [place] [address] Base excess Calc (Bld) [Moles/Vol] 0.2 mmol/L Normal 0.0-2.0 [facility] Comment on above: Performed By: #### P INR #### [facility] ([id number]) [address] [place] [address] Body temperature 98.6 [degF] Normal 37.0 [facility] Comment on above: Performed By: #### P INR #### [facility] ([id number]) [address] [place] [address] Glucose [Mass/Vol] 125 mg/dL High 65-99 [facility] Comment on above: Performed By: #### P INR #### [facility] ([id number]) [address] [place] [address] HCO3 (Bld) [Moles/Vol] 25.3 mmol/L Normal 22-26 [facility] Comment on above: Performed By: #### P INR #### [facility] ([id number]) [address] [place] [address] Hematocrit (Bld) [Volume fraction] 31 % Low 39-49 [facility] Comment on above: Performed By: #### P INR #### [facility] ([id number]) [address], [address] [place] [address] Hemoglobin (Bld) [Mass/Vol] 10.0 g/dL Low 13.0-17.0 [facility] Comment on above: Performed By: #### P INR #### [facility] ([id number]) [address], [address] [place] [address] INSP. O2 CONC. 50 % Normal [facility] Comment on above: Performed By: #### P INR #### [facility] ([id number]) [address] [place] [address] IONIZED CALCIUM 4.7 mg/dL Normal 4.5-5.3 [facility] Comment on above: Performed By: #### P INR #### [facility] ([id number]) [address] [place] [address] Oxygen (Bld) [Partial pressure] 131 mm[Hg] High 80-100 [facility] Comment on above: Performed By: #### P INR #### [facility] ([id number]) [address] [place] [address] Oxygen saturation in Blood 99.9 % Normal >90 [facility] Comment on above: Performed By: #### P INR #### [facility] ([id number]) [address] [place] [address] PCO2 42.7 MMHG Normal 35-45 [facility] Comment on above: Performed By: #### P INR #### [facility] ([id number]) [address] [place] [address] pH (Bld) 7.381 [pH] Normal 7.350-7.45 0 [facility] Comment on above: Performed By: #### P INR #### [facility] ([id number]) [address] [place] [address] Potassium [Moles/Vol] 3.7 mmol/L Normal 3.5-5.0 [facility] Comment on above: Performed By: #### P INR #### [facility] ([id number]) [address] [place] [address] SAMPLE SITE KECIA Normal [facility] Comment on above: Performed By: #### P INR #### [facility] ([id number]) [address] [place] [address] SAMPLE TYPE Arterial Normal [facility] Comment on above: Performed By: #### P INR #### [facility] ([id number]) [address] [place] [address] Sodium [Moles/Vol] 139 mmol/L Normal 134-146 [facility] Comment on above: Performed By: #### P INR #### [facility] ([id number]) [address] [place] [address] aPTT Coag (PPP) [Time]on aPTT Coag (Bld) [Time] 30 s Normal 26-37 [facility] Comment on above: Performed By: #### P INR #### [facility] ([id number]) [address] [place] [address] Glucose Glucometer (BldC) [M ass/Vol]on 11-07-2023 Glucose [Mass/Vol] 150 mg/dL High 65-99 [facility] Glucose [Mass/Vol] 58 mg/dL Low 65-99 [facility] POC [id number] 11-07-2023 Chloride [Moles/Vol] 98 mmol/L Normal 98-[address] [facility] Comment on above: Performed By: #### I ELGBC #### [facility] ([id number]) [address] [place] [address] CO2 [Moles/Vol] 31 mmol/L Normal 22-32 [facility] Comment on above: Performed By: #### I ELGBC #### [facility] ([id number]) [address] [place] [address] Creatinine [Mass/Vol] 1.9 mg/dL High 0.7-1.2 [facility] Comment on above: Result Comment: METH OD TRACEABLE TO IDMS STANDARD Performed By: #### I [facility] #### [facility] ([id number]) [address] [place] [address] GFR/1.73 sq M.predicted among non-blacks MDRD (S/P/Bld) [Vol rate/Area] 40 mL/min/{1.73_m2} Low >59 [facility] Comment on above: Result Comment: Reported eGFR is based on the CKD-EPI 1 equation that does not use a race coefficient. Performed By: #### I [facility] #### [facility] ([id number]) [address] [place] [address] Glucose [Mass/Vol] 72 mg/dL Normal 65-99 [facility] Comment on above: Performed By: #### I [facility] #### [facility] ([id number]) [address] [place] [address] Potassium [Moles/Vol] 3.6 mmol/L Normal 3.5-5.0 [facility] Comment on above: Performed By: #### I ELGBC #### [facility] ([id number]) [address] [place] [address] Sodium [Moles/Vol] 139 mmol/L Normal 134-146 [facility] Comment on above: Performed By: #### I ELGB #### [facility] ([id number]) [address] [place] [address] Urea nitrogen [Mass/Vol] 31 mg/dL High 6-23 [facility] Comment on above: Performed By: #### [facility] #### [facility] ([id number]) [address] [place] [address] PROTIME AND INRon 11-07-2023 INR Coag (PPP) [Relative time] 1.3 {INR} High 0.8-1.1 [facility] Comment on above: Performed By: #### P INR #### [facility] ([id number]) [address] [place] [address] PT Coag (PPP) [Time] 14.5 s High 9.8-13.[address] 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 Normal [facility] Comment on above: Result Comment: Elec tronically Signed By: Simon HERRERA, Padmini Wetahers\.br\Date and Time Signed: 10/23/23 10:35 EDT US [...] Guillen MD Transcribed by: HASEEB Technologist: TARAN Chatman [facility] CHEMISTRYOrdered By: SYSTEM SYSTEM on 10-19-2023 [...] 370 Contrast amount in ml's: 150 Normal [facility] Consent for Treatmenton 10-03 Consent for Treatment [id number]#1.00TIFF Normal [facility] Creatinineon 10-19-2023 Creatinine [Mass/Vol] 1.6 mg/dL High 0.5-1.3 [facility] Comment on above: Performed By: #### 2 [id number] #### [facility] [address] [place] [address] Physician Orderon 10-19-2023 Physician Order [id number]#1.00TIFF Normal [facility] eGFRon 10-19-2023 eGFR 50 mL/min/1.73 m2 Low >=59 [facility] Comment on above: Order Comment: Order added by Discern Expert. Performed By: #### 1 [id number] #### [facility] [address] [place] [address] Outside Progress Noteon 10-03 Outside Progress Note [id number]#1.00TIFF Normal [facility] Physician Orderon 10-18-2023 Physician Order [id number]#1.00TIF F Normal [facility] Physician Order [id number]#1.00TIFF Normal [facility] Basophils Auto (Bld) [#/Vol] on 10-06-2023 Basophils (Bld) [#/Vol] 0.0 10 3/uL 0.0-0.1 [facility] Basophils/100 WBC Auto (Bld) on 10-06-2023 Basophils/100 WBC (Bld) 0.3 % 0.2-2.0 [facility] Eosinophils/100 WBC Auto (Bl d)on 10-06-2023 Eosinophils/100 WBC (Bld) 1.9 % 0.9-7.0 [facility] Erythrocyte distribution wid th Auto (RBC) [Ratio]on 10-06-2023 Erythrocyte distribution width (RBC) [Ratio] 19.9 % 11.0-15.0 [facility] Estimated glomerular filtrat ion rate (GFR) non- Americanon 10-06-2023 GFR/1.73 sq M.predicted among non-blacks MDRD (S/P/Bld) [Vol rate/Area] 42 mL/min/{1.73_m2} >=60 [facility] Globulin Calc (S) [Mass/Vol] on 10-06-2023 Globulin (S) [Mass/Vol] 4.3 g/dL [facility] Hematocrit Auto (Bld) [Volum e fraction]on 10-06-2023 Hematocrit (Bld) [Volume fraction] 28.3 % 42.0-54.0 [facility] Hemoglobin [Mass/volume] in Bloodon 10-06-2023 Hemoglobin (Bld) [Mass/Vol] 8.4 g/dL 14.0-18.0 [facility] Laboratory - Chemistry and C hemistry - challengeon 10-06-2023 Albumin [Mass/Vol] 2.1 g/dL 3.4-5.0 [facility] ALP [Catalytic activity/Vol] 133 U/L 46-116 [facility] ALT [Catalytic activity/Vol] 18 U/L 16-63 [facility] AST [Catalytic activity/Vol] 20 U/L 15-37 [facility] Bilirubin [Mass/Vol] 0.3 mg/dL 0.2-1.0 [facility] Calcium [Mass/Vol] 9.4 mg/dL 8.5-10.1 [facility] Chloride [Moles/Vol] 103 mmol/L 98-107 [facility] CO2 [Moles/Vol] 23.7 mmol/L 21.0-32.0 [facility] Creatinine [Mass/Vol] 1.67 mg/dL 0.70-1.30 [facility] GFR/1.73 sq M.predicted MDRD (S/P/Bld) [Vol rate/Area] 52 mL/min/{1.73_m2} >=60 [facility] Glucose [Mass/Vol] 91 mg/dL 74-106 [facility] Magnesium [Mass/Vol] 1.6 mg/dL 1.8-2.4 [facility] Potassium [Moles/Vol] 4.8 mmol/L 3.5-5.1 [facility] Protein [Mass/Vol] 6.4 g/dL 6.4-8.2 [facility] Sodium [Moles/Vol] 136 mmol/L 136-145 [facility] Urea nitrogen [Mass/Vol] 29.0 mg/dL 7.0-18.0 [facility] Urea nitrogen/Creatinine [Mass ratio] 17.4 mg/mg [facility] Laboratory - Hematology and Cell countson 10-06-2023 ESR (Bld) [Velocity] mm/h <=20 [facility] Immature granulocytes/100 WBC (Bld) 1.5 % 0.0-0.5 [facility] Leukocytes [#/volume] correc jorge for nucleated erythrocytes in Blood by Automated counon 10-06-2023 WBC corrected for nucl RBC Auto (Bld) [#/Vol] 11.6 10 3/uL 4.0-11.0 [facility] Lymphocytes Auto (Bld) [#/Vo l]on 10-06-2023 Lymphocytes (Bld) [#/Vol] 1.5 10 3/uL 1.2-3.8 [facility] Lymphocytes/100 WBC Auto (Bl d)on 10-06-2023 Lymphocytes/100 WBC (Bld) 12.9 % 20.5-60.0 [facility] MCH Auto (RBC) [Entitic mass ]on 10-06-2023 MCH (RBC) [Entitic mass] 22.5 pg 25.9-34.0 [facility] MCHC Auto (RBC) [Mass/Vol]on 10-06-2023 MCHC (RBC) [Mass/Vol] 29.7 g/dL 29.9-35.2 [facility] MCV Auto (RBC) [Entitic vol] on 10-06-2023 MCV (RBC) [Entitic vol] 75.9 fL 80.0-94.0 [facility] Monocytes Auto (Bld) [#/Vol] on 10-06-2023 Monocytes (Bld) [#/Vol] 1.3 10 3/uL 0.3-0.8 [facility] Monocytes/100 WBC Auto (Bld) on 10-06-2023 Monocytes/100 WBC (Bld) 10.9 % 1.7-12.0 [facility] Neutrophils Auto (Bld) [#/Vo l]on 10-06-2023 Neutrophils (Bld) [#/Vol] 8.4 10 3/uL 1.4-6.5 [facility] Neutrophils/100 WBC Auto (Bl d)on 10-06-2023 Neutrophils/100 WBC (Bld) 72.5 % 43.0-75.0 [facility] No Panel Informationon 10-05 Eosinophils # (Auto) 0.2 10 3/uL 0.0-0.7 [facility] Immature Granulocyte # (Auto) 0.17 10 3/uL 0.00-0.03 [facility] Platelet mean volume Auto (B ld) [Entitic vol]on 10-06-2023 Platelet mean volume (Bld) [Entitic vol] 10.3 fL 9.5-13.5 [facility] Platelets Auto (Bld) [#/Vol] on 10-06-2023 Platelets (Bld) [#/Vol] 233 10 3/uL 150-450 [facility] RBC Auto (Bld) [#/Vol]on RBC (Bld) [#/Vol] 3.73 10 6/uL 4.70-6.10 [facility] Serum or plasma albumin/glob ulin mass ratioon 10-06-2023 Albumin/Globulin [Mass ratio] 0.5 {ratio} [facility] Serum or plasma anion gap de terminationon 10-06-2023 Anion gap [Moles/Vol] 14.1 mmol/L Fi [facility] Basophils Auto (Bld) [#/Vol] on 10-05-2023 Basophils (Bld) [#/Vol] 0.1 10 3/uL 0.0-0.1 [facility] Basophils/100 WBC Auto (Bld) on 10-05-2023 Basophils/100 WBC (Bld) 0.6 % 0.2-2.0 [facility] Eosinophils/100 WBC Auto (Bl d)on 10-05-2023 Eosinophils/100 WBC (Bld) 3.3 % 0.9-7.0 [facility] Erythrocyte distribution wid th Auto (RBC) [Ratio]on 10-05-2023 Erythrocyte distribution width (RBC) [Ratio] 19.6 % 11.0-15.0 [facility] Estimated glomerular filtrat ion rate (GFR) non- Americanon 10-05-2023 GFR/1.73 sq M.predicted among non-blacks MDRD (S/P/Bld) [Vol rate/Area] 41 mL/min/{1.73_m2} >=60 [facility] Globulin Calc (S) [Mass/Vol] on 10-05-2023 Globulin (S) [Mass/Vol] 4.7 g/dL [facility] Hematocrit Auto (Bld) [Volum e fraction]on 10-05-2023 Hematocrit (Bld) [Volume fraction] 29.9 % 42.0-54.0 [facility] Hemoglobin [Mass/volume] in Bloodon 10-05-2023 Hemoglobin (Bld) [Mass/Vol] 9.0 g/dL 14.0-18.0 [facility] 10-05-2023 L Specimen: [id number] Received: 10/06/23 [id number] Spec Type: Surgical Subm Dr: Paula Elias DPM, MS Tissues: A DIGIT AMPUTATION (RT 2,3,4 AND 5 METATARSAL AM) Procedures: HE/6, Gross/Micro L4, Decalcification Age/ Patient Sex Location Account Attending Physician Solomon Feldman SR 58/M LABELL [id number] Paula Elias DPM, MS SPEC NUM: [id number] RECD: 10/06/23 STATUS: [facility] NUM: [id number] SHAKIRA: 10/05/[address]: Paula Elias DPM, MS ENTERED: 10/06/23 [facility] DR: Jericho Carey SPEC TYPE: Surgical DEPT: [...] specimen demonstrates firm, yellow spongy bone matrix. Sl[place] Skinner sections are submitted as follows: A1: Skin and soft tissue margins A2: Second digit, bone margin; #1 proximal phalangeal margin (following decal) A3: Third digit, bone margin; #2 proximal phalangeal margin (following decal) A4: Fourth digit, bone margin; #3 proximal phalangeal margin (following decal) A5: Fifth digit, bone margin; #4 proximal phalangeal margin (following decal) Specimen: [id number] Received: 10/06/23 Status: COL[facility] Nath Num: [id number] Spec Type: Surgical Subm Dr: Paula Elias,LINDSEY, MS Tissues: A DIGIT AMPUTATION (RT 2,3,4 AND 5 METATARSAL AM) Procedures: HE/6, Gross/Micro L4, Decalcification Patient: Solomon Feldman [id number] (Continued) Specimen: [id number] Received: 10/06/23 (Continued) Gross Description (Continued) Signed (signature on file) Padmini Linn MD 10/10/23 1542 Specimen: [id number] Received: 10/06/23 Status: [facility] Nath Num: [id number] Spec Type: Surgical Subm Dr: Paula Elias,LINDSEY, MS Tissues: A DIGIT AMPUTATION (RT 2,3,4 AND 5 METATARSAL AM) Procedures: /Ramirez, Gross/Micro L4, Decalcification Patient: Solomon Feldman SR [id number] (Continued) Specimen: [id number] Received: 10/06/23 (Continued) Gross Description (Continued) A6: Full-thickness section to include skin, underlying soft tissue and bone (following decal) Clinical history: None given CPT Codes 67227 FOREFOOT AND DIGITS Specimen: [id number] Received: 10/06/23 Status: [facility] Nath Num: [id number] Spec Type: Surgical Subm Dr: Paula Elias,LINDSEY, MS Tissues: A DIGIT AMPUTATION (RT 2,3,4 AND 5 METATARSAL AM) Procedures: HE/6, Gross/Micro L4, Decalcification Patient: Solomon Feldman SR [id number] (Continued) Signed (signature on file) Padmini Linn MD 10/10/23 1542 Normal [facility] Laboratory - Chemistry and C hemistry - challengeon 10-05-2023 Albumin [Mass/Vol] 2.2 g/dL 3.4-5.0 [facility] ALP [Catalytic activity/Vol] 140 U/L 46-116 [facility] ALT [Catalytic activity/Vol] 18 U/L 16-63 [facility] AST [Catalytic activity/Vol] 22 U/L 15-37 [facility] Bilirubin [Mass/Vol] 0.5 mg/dL 0.2-1.0 [facility] Calcium [Mass/Vol] 9.2 mg/dL 8.5-10.1 [facility] Chloride [Moles/Vol] 100 mmol/L 98-107 [facility] CO2 [Moles/Vol] 22.6 mmol/L 21.0-32.0 [facility] Creatinine [Mass/Vol] 1.74 mg/dL 0.70-1.30 [facility] GFR/1.73 sq M.predicted MDRD (S/P/Bld) [Vol rate/Area] 49 mL/min/{1.73_m2} >=60 [facility] Glucose [Mass/Vol] 162 mg/dL 74-106 [facility] Magnesium [Mass/Vol] 1.7 mg/dL 1.8-2.4 [facility] Potassium [Moles/Vol] 5.3 mmol/L 3.5-5.1 [facility] Protein [Mass/Vol] 6.9 g/dL 6.4-8.2 [facility] Sodium [Moles/Vol] 133 mmol/L 136-145 [facility] Urea nitrogen [Mass/Vol] 30.0 mg/dL 7.0-18.0 [facility] Urea nitrogen/Creatinine [Mass ratio] 17.2 mg/mg [facility] Laboratory - Hematology and Cell countson 10-05-2023 ESR (Bld) [Velocity] 130 mm/h <=20 [facility] Immature granulocytes/100 WBC (Bld) 1.3 % 0.0-0.5 [facility] Leukocytes [#/volume] correc jorge for nucleated erythrocytes in Blood by Automated counon 10-05-2023 WBC corrected for nucl RBC Auto (Bld) [#/Vol] 12.6 10 3/uL 4.0-11.0 [facility] Lymphocytes Auto (Bld) [#/Vo l]on 10-05-2023 Lymphocytes (Bld) [#/Vol] 1.3 10 3/uL 1.2-3.8 [facility] Lymphocytes/100 WBC Auto (Bl d)on 10-05-2023 Lymphocytes/100 WBC (Bld) 10.1 % 20.5-60.0 [facility] MCH Auto (RBC) [Entitic mass ]on 10-05-2023 MCH (RBC) [Entitic mass] 22.7 pg 25.9-34.0 [facility] MCHC Auto (RBC) [Mass/Vol]on 10-05-2023 MCHC (RBC) [Mass/Vol] 30.1 g/dL 29.9-35.2 [facility] MCV Auto (RBC) [Entitic vol] on 10-05-2023 MCV (RBC) [Entitic vol] 75.3 fL 80.0-94.0 [facility] Monocytes Auto (Bld) [#/Vol] on 10-05-2023 Monocytes (Bld) [#/Vol] 1.4 10 3/uL 0.3-0.8 [facility] Monocytes/100 WBC Auto (Bld) on 10-05-2023 Monocytes/100 WBC (Bld) 10.9 % 1.7-12.0 [facility] Neutrophils Auto (Bld) [#/Vo l]on 10-05-2023 Neutrophils (Bld) [#/Vol] 9.3 10 3/uL 1.4-6.5 [facility] Neutrophils/100 WBC Auto (Bl d)on 10-05-2023 Neutrophils/100 WBC (Bld) 73.8 % 43.0-75.0 [facility] No Panel Informationon 10-04 Eosinophils # (Auto) 0.4 10 3/uL 0.0-0.7 [facility] Immature Granulocyte # (Auto) 0.16 10 3/uL 0.00-0.03 [facility] Platelet mean volume Auto (B ld) [Entitic vol]on 10-05-2023 Platelet mean volume (Bld) [Entitic vol] 11.3 fL 9.5-13.5 [facility] Platelets Auto (Bld) [#/Vol] on 10-05-2023 Platelets (Bld) [#/Vol] 203 10 3/uL 150-450 [facility] RBC Auto (Bld) [#/Vol]on RBC (Bld) [#/Vol] 3.97 10 6/uL 4.70-6.10 [facility] Serum or plasma albumin/glob ulin mass ratioon 10-05-2023 Albumin/Globulin [Mass ratio] 0.5 {ratio} [facility] Serum or plasma anion gap de terminationon 10-05-2023 Anion gap [Moles/Vol] 15.7 mmol/L [facility] Basophils Auto (Bld) [#/Vol] on 10-04-2023 Basophils (Bld) [#/Vol] 0.1 10 3/uL 0.0-0.1 [facility] Basophils/100 WBC Auto (Bld) on 10-04-2023 Basophils/100 WBC (Bld) 0.5 % 0.2-2.0 [facility] Eosinophils/100 WBC Auto (Bl d)on 10-04-2023 Eosinophils/100 WBC (Bld) 3.6 % 0.9-7.0 [facility] Erythrocyte distribution wid th Auto (RBC) [Ratio]on 10-04-2023 Erythrocyte distribution width (RBC) [Ratio] 19.6 % 11.0-15.0 [facility] Estimated glomerular filtrat ion rate (GFR) non- Americanon 10-04-2023 GFR/1.73 sq M.predicted among non-blacks MDRD (S/P/Bld) [Vol rate/Area] 44 mL/min/{1.73_m2} >=60 [facility] Globulin Calc (S) [Mass/Vol] on 10-04-2023 Globulin (S) [Mass/Vol] 4.3 g/dL [facility] Hematocrit Auto (Bld) [Volum e fraction]on 10-04-2023 Hematocrit (Bld) [Volume fraction] 26.8 % 42.0-54.0 [facility] Hemoglobin [Mass/volume] in Bloodon 10-04-2023 Hemoglobin (Bld) [Mass/Vol] 7.9 g/dL 14.0-18.0 [facility] Laboratory - Chemistry and C hemistry - challengeon 10-04-2023 Albumin [Mass/Vol] 1.9 g/dL 3.4-5.0 [facility] ALP [Catalytic activity/Vol] 135 U/L 46-116 [facility] ALT [Catalytic activity/Vol] 16 U/L 16-63 [facility] AST [Catalytic activity/Vol] 19 U/L 15-37 [facility] Bilirubin [Mass/Vol] 0.4 mg/dL 0.2-1.0 [facility] Calcium [Mass/Vol] 7.8 mg/dL 8.5-10.1 [facility] Chloride [Moles/Vol] 102 mmol/L 98-107 [facility] CO2 [Moles/Vol] 25.0 mmol/L 21.0-32.0 [facility] Creatinine [Mass/Vol] 1.61 mg/dL 0.70-1.30 [facility] GFR/1.73 sq M.predicted MDRD (S/P/Bld) [Vol rate/Area] 54 mL/min/{1.73_m2} >=60 [facility] Glucose [Mass/Vol] 136 mg/dL 74-106 [facility] Magnesium [Mass/Vol] 1.7 mg/dL 1.8-2.4 [facility] Potassium [Moles/Vol] 5.1 mmol/L 3.5-5.1 [facility] Protein [Mass/Vol] 6.2 g/dL 6.4-8.2 [facility] Sodium [Moles/Vol] 134 mmol/L 136-145 [facility] Urea nitrogen [Mass/Vol] 25.0 mg/dL 7.0-18.0 [facility] Urea nitrogen/Creatinine [Mass ratio] 15.5 mg/mg [facility] Laboratory - Hematology and Cell countson 10-04-2023 ESR (Bld) [Velocity] 117 mm/h <=20 [facility] Immature granulocytes/100 WBC (Bld) 0.9 % 0.0-0.5 [facility] Leukocytes [#/volume] correc jorge for nucleated erythrocytes in Blood by Automated counon 10-04-2023 WBC corrected for nucl RBC Auto (Bld) [#/Vol] 11.5 10 3/uL 4.0-11.0 [facility] Lymphocytes Auto (Bld) [#/Vo l]on 10-04-2023 Lymphocytes (Bld) [#/Vol] 1.3 10 3/uL 1.2-3.8 [facility] Lymphocytes/100 WBC Auto (Bl d)on 10-04-2023 Lymphocytes/100 WBC (Bld) 10.9 % 20.5-60.0 [facility] MCH Auto (RBC) [Entitic mass ]on 10-04-2023 MCH (RBC) [Entitic mass] 22.4 pg 25.9-34.0 [facility] MCHC Auto (RBC) [Mass/Vol]on 10-04-2023 MCHC (RBC) [Mass/Vol] 29.5 g/dL 29.9-35.2 [facility] MCV Auto (RBC) [Entitic vol] on 10-04-2023 MCV (RBC) [Entitic vol] 75.9 fL 80.0-94.0 [facility] Monocytes Auto (Bld) [#/Vol] on 10-04-2023 Monocytes (Bld) [#/Vol] 1.4 10 3/uL 0.3-0.8 [facility] Monocytes/100 WBC Auto (Bld) on 10-04-2023 Monocytes/100 WBC (Bld) 12.4 % 1.7-12.0 [facility] Neutrophils Auto (Bld) [#/Vo l]on 10-04-2023 Neutrophils (Bld) [#/Vol] 8.3 10 3/uL 1.4-6.5 [facility] Neutrophils/100 WBC Auto (Bl d)on 10-04-2023 Neutrophils/100 WBC (Bld) 71.7 % 43.0-75.0 [facility] No Panel Informationon 10-03 Eosinophils # (Auto) 0.4 10 3/uL 0.0-0.7 [facility] Immature Granulocyte # (Auto) 0.10 10 3/uL 0.00-0.03 [facility] Platelet mean volume Auto (B ld) [Entitic vol]on 10-04-2023 Platelet mean volume (Bld) [Entitic vol] 11.5 fL 9.5-13.5 [facility] Platelets Auto (Bld) [#/Vol] on 10-04-2023 Platelets (Bld) [#/Vol] 154 10 3/uL 150-450 [facility] RBC Auto (Bld) [#/Vol]on RBC (Bld) [#/Vol] 3.53 10 6/uL 4.70-6.10 [facility] Serum or plasma albumin/glob ulin mass ratioon 10-04-2023 Albumin/Globulin [Mass ratio] 0.4 {ratio} [facility] Serum or plasma anion gap de terminationon 10-04-2023 Anion gap [Moles/Vol] 12.1 [facility] Basophils Auto (Bld) [#/Vol] on 10-03-2023 Basophils (Bld) [#/Vol] 0.1 10 3/uL 0.0-0.1 [facility] Basophils/100 WBC Auto (Bld) on 10-03-2023 Basophils/100 WBC (Bld) 0.7 % 0.2-2.0 [facility] Eosinophils/100 WBC Auto (Bl d)on 10-03-2023 Eosinophils/100 WBC (Bld) 2.7 % 0.9-7.0 [facility] Erythrocyte distribution wid th Auto (RBC) [Ratio]on 10-03-2023 Erythrocyte distribution width (RBC) [Ratio] 19.2 % 11.0-15.0 [facility] Estimated glomerular filtrat ion rate (GFR) non- Americanon 10-03-2023 GFR/1.73 sq M.predicted among non-blacks MDRD (S/P/Bld) [Vol rate/Area] 46 mL/min/{1.73_m2} >=60 [facility] Globulin Calc (S) [Mass/Vol] on 10-03-2023 Globulin (S) [Mass/Vol] 4.1 g/dL [facility] Hematocrit Auto (Bld) [Volum e fraction]on 10-03-2023 Hematocrit (Bld) [Volume fraction] 26.4 % 42.0-54.0 [facility] Hemoglobin [Mass/volume] in Bloodon 10-03-2023 Hemoglobin (Bld) [Mass/Vol] 8.1 g/dL 14.0-18.0 [facility] Laboratory - Chemistry and C hemistry - challengeon 10-03-2023 Albumin [Mass/Vol] 1.9 g/dL 3.4-5.0 [facility] ALP [Catalytic activity/Vol] 140 U/L 46-116 [facility] ALT [Catalytic activity/Vol] 17 U/L 16-63 [facility] AST [Catalytic activity/Vol] 21 U/L 15-37 [facility] Bilirubin [Mass/Vol] 0.3 mg/dL 0.2-1.0 [facility] Calcium [Mass/Vol] 6.7 mg/dL 8.5-10.1 [facility] Chloride [Moles/Vol] 101 mmol/L 98-107 [facility] CO2 [Moles/Vol] 23.9 mmol/L 21.0-32.0 [facility] Creatinine [Mass/Vol] 1.57 mg/dL 0.70-1.30 [facility] GFR/1.73 sq M.predicted MDRD (S/P/Bld) [Vol rate/Area] 55 mL/min/{1.73_m2} >=60 [facility] Glucose [Mass/Vol] 142 mg/dL 74-106 [facility] Magnesium [Mass/Vol] 1.3 mg/dL 1.8-2.4 [facility] Potassium [Moles/Vol] 4.8 mmol/L 3.5-5.1 [facility] Protein [Mass/Vol] 6.0 g/dL 6.4-8.2 [facility] Sodium [Moles/Vol] 134 mmol/L 136-145 [facility] Urea nitrogen [Mass/Vol] 23.0 mg/dL 7.0-18.0 [facility] Urea nitrogen/Creatinine [Mass ratio] 14.6 mg/mg [facility] Laboratory - Hematology and Cell countson 10-03-2023 ESR (Bld) [Velocity] mm/h <=20 [facility] Immature granulocytes/100 WBC (Bld) 1.0 % 0.0-0.5 [facility] Leukocytes [#/volume] correc jorge for nucleated erythrocytes in Blood by Automated counon 10-03-2023 WBC corrected for nucl RBC Auto (Bld) [#/Vol] 11.6 10 3/uL 4.0-11.0 [facility] Lymphocytes Auto (Bld) [#/Vo l]on 10-03-2023 Lymphocytes (Bld) [#/Vol] 1.4 10 3/uL 1.2-3.8 [facility] Lymphocytes/100 WBC Auto (Bl d)on 10-03-2023 Lymphocytes/100 WBC (Bld) 12.1 % 20.5-60.0 [facility] MCH Auto (RBC) [Entitic mass ]on 10-03-2023 MCH (RBC) [Entitic mass] 23.2 pg 25.9-34.0 [facility] MCHC Auto (RBC) [Mass/Vol]on 10-03-2023 MCHC (RBC) [Mass/Vol] 30.7 g/dL 29.9-35.2 [facility] MCV Auto (RBC) [Entitic vol] on 10-03-2023 MCV (RBC) [Entitic vol] 75.6 fL 80.0-94.0 [facility] Monocytes Auto (Bld) [#/Vol] on 10-03-2023 Monocytes (Bld) [#/Vol] 1.3 10 3/uL 0.3-0.8 [facility] Monocytes/100 WBC Auto (Bld) on 10-03-2023 Monocytes/100 WBC (Bld) 10.8 % 1.7-12.0 [facility] Neutrophils Auto (Bld) [#/Vo l]on 10-03-2023 Neutrophils (Bld) [#/Vol] 8.5 10 3/uL 1.4-6.5 [facility] Neutrophils/100 WBC Auto (Bl d)on 10-03-2023 Neutrophils/100 WBC (Bld) 72.7 % 43.0-75.0 [facility] No Panel Informationon 10-02 Eosinophils # (Auto) 0.3 10 3/uL 0.0-0.7 [facility] Immature Granulocyte # (Auto) 0.12 10 3/uL 0.00-0.03 [facility] Platelet mean volume Auto (B ld) [Entitic vol]on 10-03-2023 Platelet mean volume (Bld) [Entitic vol] 11.3 fL 9.5-13.5 [facility] Platelets Auto (Bld) [#/Vol] on 10-03-2023 Platelets (Bld) [#/Vol] 141 10 3/uL 150-450 [facility] RBC Auto (Bld) [#/Vol]on RBC (Bld) [#/Vol] 3.49 10 6/uL 4.70-6.10 [facility] Serum or plasma albumin/glob ulin mass ratioon 10-03-2023 Albumin/Globulin [Mass ratio] 0.5 {ratio} [facility] Serum or plasma anion gap de terminationon 10-03-2023 Anion gap [Moles/Vol] 13.9 mmol/L Fi [facility] Basophils Auto (Bld) [#/Vol] on 10-02-2023 Basophils (Bld) [#/Vol] 0.0 10 3/uL 0.0-0.1 [facility] Basophils/100 WBC Auto (Bld) on 10-02-2023 Basophils/100 WBC (Bld) 0.4 % 0.2-2.0 [facility] Eosinophils/100 WBC Auto (Bl d)on 10-02-2023 Eosinophils/100 WBC (Bld) 2.2 % 0.9-7.0 [facility] Erythrocyte distribution wid th Auto (RBC) [Ratio]on 10-02-2023 Erythrocyte distribution width (RBC) [Ratio] 19.3 % 11.0-15.0 [facility] Estimated glomerular filtrat ion rate (GFR) non- Americanon 10-02-2023 GFR/1.73 sq M.predicted among non-blacks MDRD (S/P/Bld) [Vol rate/Area] 41 mL/min/{1.73_m2} >=60 [facility] Globulin Calc (S) [Mass/Vol] on 10-02-2023 Globulin (S) [Mass/Vol] 4.2 g/dL [facility] Hematocrit Auto (Bld) [Volum e fraction]on 10-02-2023 Hematocrit (Bld) [Volume fraction] 26.1 % 42.0-54.0 [facility] Hemoglobin [Mass/volume] in Bloodon 10-02-2023 Hemoglobin (Bld) [Mass/Vol] 7.8 g/dL 14.0-18.0 [facility] 10-02-2023 L Specimen: [id number] Received: 10/03/23 Status: [facility] Nath Num: [id number] Spec Type: Surgical Subm Dr: Paula Elias DPM, MS Tissues: A DIGIT AMPUTATION (FIRST METATARSAL RT FOOT) Procedures: HE/2, Gross/Micro L4, Decalcification Age/ Patient Sex Location Account Attending Physician Solomon Feldman SR 58/M LABELL [id number] Paula Elias DPM, MS SPEC NUM: [id number] RECD: 10/03/23 STATUS: [facility] NUM: [id number] SHAKIRA: 10/02/[address]: Paula Elias DPM, MS ENTERED: 10/03/[address]: Aurelio,Lab SPEC TYPE: Surgical DEPT: RAMSEY MARCANO ORDERED: [...] firm yellow- pink spongy bone matrix. 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 Clinical history: Right diabetic foot infection CPT Codes 23444 Specimen: [id number] Received: 10/03/23 Status: [facility] Num: [id number] Spec Type: Surgical Subm Dr: Paula Elias,DPSarika, MS Tissues: A DIGIT AMPUTATION (FIRST METATARSAL RT FOOT) Procedures: LULU/Karli, Gross/Micro L4, Decalcification Patient: Solomon Feldman SR [id number] (Continued) Signed (signature on file) Padmini Linn MD 10/05/23 1426 Normal [facility] Laboratory - Chemistry and C hemistry - challengeon 10-02-2023 Albumin [Mass/Vol] 2.1 g/dL 3.4-5.0 [facility] ALP [Catalytic activity/Vol] 131 U/L 46-116 [facility] ALT [Catalytic activity/Vol] 17 U/L 16-63 [facility] AST [Catalytic activity/Vol] 13 U/L 15-37 [facility] Bilirubin [Mass/Vol] 0.3 mg/dL 0.2-1.0 [facility] Calcium [Mass/Vol] 6.6 mg/dL 8.5-10.1 [facility] Chloride [Moles/Vol] 105 mmol/L 98-107 [facility] CO2 [Moles/Vol] 24.3 mmol/L 21.0-32.0 [facility] Creatinine [Mass/Vol] 1.72 mg/dL 0.70-1.30 [facility] GFR/1.73 sq M.predicted MDRD (S/P/Bld) [Vol rate/Area] 50 mL/min/{1.73_m2} >=60 [facility] Glucose [Mass/Vol] 156 mg/dL 74-106 [facility] Magnesium [Mass/Vol] 1.5 mg/dL 1.8-2.4 [facility] Potassium [Moles/Vol] 4.0 mmol/L 3.5-5.1 [facility] Protein [Mass/Vol] 6.3 g/dL 6.4-8.2 [facility] Sodium [Moles/Vol] 139 mmol/L 136-145 [facility] Urea nitrogen [Mass/Vol] 27.0 mg/dL 7.0-18.0 [facility] Urea nitrogen/Creatinine [Mass ratio] 15.7 mg/mg [facility] Laboratory - Hematology and Cell countson 10-02-2023 Immature granulocytes/100 WBC (Bld) 0.4 % 0.0-0.5 [facility] ESR (Bld) [Velocity] 110 mm/h <=20 [facility] Laboratory - Microbiology an d Antimicrobial susceptibilityOrdered By: Truman Bryant on 10-02-2023 Microscopic observation Gram stain Nom (Unsp spec) [facility] Leukocytes [#/volume] correc jorge for nucleated erythrocytes in Blood by Automated counon 10-02-2023 WBC corrected for nucl RBC Auto (Bld) [#/Vol] 8.5 10 3/uL 4.0-11.0 [facility] Lymphocytes Auto (Bld) [#/Vo l]on 10-02-2023 Lymphocytes (Bld) [#/Vol] 1.5 10 3/uL 1.2-3.8 [facility] Lymphocytes/100 WBC Auto (Bl d)on 10-02-2023 Lymphocytes/100 WBC (Bld) 17.3 % 20.5-60.0 [facility] MCH Auto (RBC) [Entitic mass ]on 10-02-2023 MCH (RBC) [Entitic mass] 22.5 pg 25.9-34.0 [facility] MCHC Auto (RBC) [Mass/Vol]on 10-02-2023 MCHC (RBC) [Mass/Vol] 29.9 g/dL 29.9-35.2 [facility] MCV Auto (RBC) [Entitic vol] on 10-02-2023 MCV (RBC) [Entitic vol] 75.2 fL 80.0-94.0 [facility] Monocytes Auto (Bld) [#/Vol] on 10-02-2023 Monocytes (Bld) [#/Vol] 0.8 10 3/uL 0.3-0.8 [facility] Monocytes/100 WBC Auto (Bld) on 10-02-2023 Monocytes/100 WBC (Bld) 9.1 % 1.7-12.0 [facility] Neutrophils Auto (Bld) [#/Vo l]on 10-02-2023 Neutrophils (Bld) [#/Vol] 6.0 10 3/uL 1.4-6.5 [facility] Neutrophils/100 WBC Auto (Bl d)on 10-02-2023 Neutrophils/100 WBC (Bld) 70.6 % 43.0-75.0 [facility] No Panel Informationon 10-01 Eosinophils # (Auto) 0.2 10 3/uL 0.0-0.7 [facility] Immature Granulocyte # (Auto) 0.03 10 3/uL 0.00-0.03 [facility] Fungal Smear Result [facility] Miscellaneous Test Comment See comment [facility] Comment on above: Specimen Source: JONO TRT - Foot Right - Foot Rt - 604.000 No Panel InformationOrdered By: Truman Bryant on 10-02-2023 Tissue Culture [facility] No Panel InformationOrdered By: Paula Elias on 10-02-2023 Acid Fast Smear [facility]B Specimen Processing [facility] Platelet mean volume Auto (B ld) [Entitic vol]on 10-02-2023 Platelet mean volume (Bld) [Entitic vol] 10.6 fL 9.5-13.5 [facility] Platelets Auto (Bld) [#/Vol] on 10-02-2023 Platelets (Bld) [#/Vol] 142 10 3/uL 150-450 [facility] RBC Auto (Bld) [#/Vol]on RBC (Bld) [#/Vol] 3.47 10 6/uL 4.70-6.10 [facility] Serum or plasma albumin/glob ulin mass ratioon 10-02-2023 Albumin/Globulin [Mass ratio] 0.5 {ratio} [facility] Serum or plasma anion gap de terminationon 10-02-2023 Anion gap [Moles/Vol] 13.7 mmol/L [facility] Basophils Auto (Bld) [#/Vol] on 10-01-2023 Basophils (Bld) [#/Vol] 0.0 10 3/uL 0.0-0.1 [facility] Basophils/100 WBC Auto (Bld) on 10-01-2023 Basophils/100 WBC (Bld) 0.4 % 0.2-2.0 [facility] Eosinophils/100 WBC Auto (Bl d)on 10-01-2023 Eosinophils/100 WBC (Bld) 1.7 % 0.9-7.0 [facility] Erythrocyte distribution wid th Auto (RBC) [Ratio]on 10-01-2023 Erythrocyte distribution width (RBC) [Ratio] 18.5 % 11.0-15.0 [facility] Estimated glomerular filtrat ion rate (GFR) non- Americanon 10-01-2023 GFR/1.73 sq M.predicted among non-blacks MDRD (S/P/Bld) [Vol rate/Area] 27 mL/min/{1.73_m2} >=60 [facility] Globulin Calc (S) [Mass/Vol] on 10-01-2023 Globulin (S) [Mass/Vol] 4.0 g/dL [facility] Hematocrit Auto (Bld) [Volum e fraction]on 10-01-2023 Hematocrit (Bld) [Volume fraction] 26.5 % 42.0-54.0 [facility] Hemoglobin [Mass/volume] in Bloodon 10-01-2023 Hemoglobin (Bld) [Mass/Vol] 8.0 g/dL 14.0-18.0 [facility] Laboratory - Chemistry and C hemistry - challengeon 10-01-2023 Lactate [Moles/Vol] 1.8 mmol/L 0.4-2.0 [facility] Albumin [Mass/Vol] 1.9 g/dL 3.4-5.0 [facility] ALP [Catalytic activity/Vol] 113 U/L 46-116 [facility] ALT [Catalytic activity/Vol] 17 U/L 16-63 [facility] AST [Catalytic activity/Vol] 14 U/L 15-37 [facility] Bilirubin [Mass/Vol] 0.3 mg/dL 0.2-1.0 [facility] Calcium [Mass/Vol] 5.7 mg/dL 8.5-10.1 [facility] Comment on above: RESULTS CALLED TO Patricio Genao(RN)@BY SKY AndersonT at 0619 Chloride [Moles/Vol] 102 mmol/L 98-107 [facility] CO2 [Moles/Vol] 20.4 mmol/L 21.0-32.0 [facility] Creatinine [Mass/Vol] 2.46 mg/dL 0.70-1.30 [facility] GFR/1.73 sq M.predicted MDRD (S/P/Bld) [Vol rate/Area] 33 mL/min/{1.73_m2} >=60 [facility] Glucose [Mass/Vol] 67 mg/dL 74-106 [facility] Magnesium [Mass/Vol] 0.8 mg/dL 1.8-2.4 [facility] Comment on above: RESULTS CALLED TO Patricio Genao (RN)@BY SKY WayT at 0601 Potassium [Moles/Vol] 3.1 mmol/L 3.5-5.1 [facility] Protein [Mass/Vol] 5.9 g/dL 6.4-8.2 [facility] Sodium [Moles/Vol] 138 mmol/L 136-145 [facility] Urea nitrogen [Mass/Vol] 28.0 mg/dL 7.0-18.0 [facility] Urea nitrogen/Creatinine [Mass ratio] 11.4 mg/mg [facility] Laboratory - Hematology and Cell countson 10-01-2023 ESR (Bld) [Velocity] 96 mm/h <=20 [facility] Immature granulocytes/100 WBC (Bld) 0.6 % 0.0-0.5 [facility] Leukocytes [#/volume] correc jorge for nucleated erythrocytes in Blood by Automated counon 10-01-2023 WBC corrected for nucl RBC Auto (Bld) [#/Vol] 10.0 10 3/uL 4.0-11.0 [facility] Lymphocytes Auto (Bld) [#/Vo l]on 10-01-2023 Lymphocytes (Bld) [#/Vol] 1.3 10 3/uL 1.2-3.8 [facility] Lymphocytes/100 WBC Auto (Bl d)on 10-01-2023 Lymphocytes/100 WBC (Bld) 12.8 % 20.5-60.0 [facility] MCH Auto (RBC) [Entitic mass ]on 10-01-2023 MCH (RBC) [Entitic mass] 22.4 pg 25.9-34.0 [facility] MCHC Auto (RBC) [Mass/Vol]on 10-01-2023 MCHC (RBC) [Mass/Vol] 30.2 g/dL 29.9-35.2 [facility] MCV Auto (RBC) [Entitic vol] on 10-01-2023 MCV (RBC) [Entitic vol] 74.2 fL 80.0-94.0 [facility] Monocytes Auto (Bld) [#/Vol] on 10-01-2023 Monocytes (Bld) [#/Vol] 0.7 10 3/uL 0.3-0.8 [facility] Monocytes/100 WBC Auto (Bld) on 10-01-2023 Monocytes/100 WBC (Bld) 6.9 % 1.7-12.0 [facility] Neutrophils Auto (Bld) [#/Vo l]on 10-01-2023 Neutrophils (Bld) [#/Vol] 7.8 10 3/uL 1.4-6.5 [facility] Neutrophils/100 WBC Auto (Bl d)on 10-01-2023 Neutrophils/100 WBC (Bld) 77.6 % 43.0-75.0 [facility] No Panel Informationon 09-30 C-Reactive Protein, Quantitative 10.58 mg/dL <=0.50 [facility] Eosinophils # (Auto) 0.2 10 3/uL 0.0-0.7 [facility] Immature Granulocyte # (Auto) 0.06 10 3/uL 0.00-0.03 [facility] Troponin I High Sensitivity 8.3 pg/mL 4.0-76.1 [facility] Comment on above: CUT-OFF POINTS HAVE BEEN [...] Blood Partial Pressure CO2 30.4 mm[Hg] 40.0-52.0 [facility] Venous Blood pH 7.421 7.330-7.43 0 [facility] Platelet mean volume Auto (B ld) [Entitic vol]on 10-01-2023 Platelet mean volume (Bld) [Entitic vol] 11.2 fL 9.5-13.5 [facility] Platelets Auto (Bld) [#/Vol] on 10-01-2023 Platelets (Bld) [#/Vol] 164 10 3/uL 150-450 [facility] RBC Auto (Bld) [#/Vol]on RBC (Bld) [#/Vol] 3.57 10 6/uL 4.70-6.10 [facility] Serum or plasma albumin/glob ulin mass ratioon 10-01-2023 Albumin/Globulin [Mass ratio] 0.5 {ratio} [facility] Serum or plasma anion gap de terminationon 10-01-2023 Anion gap [Moles/Vol] 18.7 mmol/L [facility] Automated epithelial cells c ount in urine sediment (number/area)on 09-30-2023 Epithelial cells Auto (Urine sed) [#/Area] NONE SEEN #/LPF NONE/RARE [facility] Automated leukocytes count i n urine sediment (number/area)on 09-30-2023 WBC Auto (Urine sed) [#/Area] NONE SEEN #/HPF 0-2 [facility] Automated urine specific gra vity by refractometryon 09-30-2023 Specific gravity Refractometry automated (U) [Rel density] <=1.005 1.005-1.02 5 [facility] Basophils Auto (Bld) [#/Vol] on 09-30-2023 Basophils (Bld) [#/Vol] 0.1 10 3/uL 0.0-0.1 [facility] Basophils/100 WBC Auto (Bld) on 09-30-2023 Basophils/100 WBC (Bld) 0.4 % 0.2-2.0 [facility] Bilirubin Auto test strip (U ) [Mass/Vol]on 09-30-2023 Bilirubin (U) [Mass/Vol] Negative NEGATIVE [facility] Casts typing in urine sedime nt by light microscopyon 09-30-2023 Casts LM Nom (Urine sed) NONE SEEN #/LPF NONE SEEN [facility] Color Auto (U)on 09-30-2023 Color (U) LT. YELLOW YELLOW [facility] Eosinophils/100 WBC Auto (Bl d)on 09-30-2023 Eosinophils/100 WBC (Bld) 1.4 % 0.9-7.0 [facility] Erythrocyte distribution wid th Auto (RBC) [Ratio]on 09-30-2023 Erythrocyte distribution width (RBC) [Ratio] 19.0 % 11.0-15.0 [facility] Estimated glomerular filtrat ion rate (GFR) non- Americanon 09-30-2023 GFR/1.73 sq M.predicted among non-blacks MDRD (S/P/Bld) [Vol rate/Area] 19 mL/min/{1.73_m2} >=60 [facility] Globulin Calc (S) [Mass/Vol] on 09-30-2023 Globulin (S) [Mass/Vol] 4.8 g/dL [facility] Hematocrit Auto (Bld) [Volum e fraction]on 09-30-2023 Hematocrit (Bld) [Volume fraction] 32.9 % 42.0-54.0 [facility] Hemoglobin [Mass/volume] in Bloodon 09-30-2023 Hemoglobin (Bld) [Mass/Vol] 10.0 g/dL 14.0-18.0 [facility] INR in Platelet poor plasma by Coagulation assayon 09-30-2023 INR Coag (PPP) [Relative time] 1.23 {INR} [facility] Comment on above: DESIRED INR:2.0-3.0 CONDITIONS NOT LISTED BELOW2.5-3.5 FOR PROSTHETIC HEART VALVE REPLACEMENT2.5-3.5 RECURRENT THROMBOSIS Ketones Auto test strip (U) [Mass/Vol]on 09-30-2023 Ketones (U) [Mass/Vol] Negative NEGATIVE [facility] Laboratory - Chemistry and C hemistry - challengeon 09-30-2023 Lactate [Moles/Vol] 4.2 mmol/L 0.4-2.0 [facility] Comment on above: RESULTS CALLED TO Patricio Genao (RN)@BY SOFIYA Way at 2312 Albumin [Mass/Vol] 2.4 g/dL 3.4-5.0 [facility] ALP [Catalytic activity/Vol] 145 U/L 46-116 [facility] ALT [Catalytic activity/Vol] 17 U/L 16-63 [facility] AST [Catalytic activity/Vol] 21 U/L 15-37 [facility] Bilirubin [Mass/Vol] 0.4 mg/dL 0.2-1.0 [facility] Calcium [Mass/Vol] 5.8 mg/dL 8.5-10.1 [facility] Comment on above: RESULTS CALLED TO GIOVANNA CASTANON @BY Verona Hanson at 1645 Chloride [Moles/Vol] 97 mmol/L 98-107 [facility] CO2 [Moles/Vol] 18.3 mmol/L 21.0-32.0 [facility] Creatinine [Mass/Vol] 3.43 mg/dL 0.70-1.30 [facility] GFR/1.73 sq M.predicted MDRD (S/P/Bld) [Vol rate/Area] 22 mL/min/{1.73_m2} >=60 [facility] Glucose [Mass/Vol] 208 mg/dL 74-106 [facility] Magnesium [Mass/Vol] 0.5 mg/dL 1.8-2.4 [facility] Comment on above: RESULTS CALLED TO Giovanna Castanon @BY Marybel Hawkins MLT [id number] Natriuretic peptide B (Bld) [Mass/Vol] 611.0 pg/mL <=900.0 [facility] Potassium [Moles/Vol] 3.9 mmol/L 3.5-5.1 [facility] Protein [Mass/Vol] 7.2 g/dL 6.4-8.2 [facility] Sodium [Moles/Vol] 137 mmol/L 136-145 [facility] Urea nitrogen [Mass/Vol] 34.0 mg/dL 7.0-18.0 [facility] Urea nitrogen/Creatinine [Mass ratio] 9.9 mg/mg [facility] Laboratory - Hematology and Cell countson 09-30-2023 ESR (Bld) [Velocity] 130 mm/h <=20 [facility] Immature granulocytes/100 WBC (Bld) 0.6 % 0.0-0.5 [facility] Leukocytes [#/volume] correc jorge for nucleated erythrocytes in Blood by Automated counon 09-30-2023 WBC corrected for nucl RBC Auto (Bld) [#/Vol] 13.9 10 3/uL 4.0-11.0 [facility] Lymphocytes Auto (Bld) [#/Vo l]on 09-30-2023 Lymphocytes (Bld) [#/Vol] 1.4 10 3/uL 1.2-3.8 [facility] Lymphocytes/100 WBC Auto (Bl d)on 09-30-2023 Lymphocytes/100 WBC (Bld) 10.1 % 20.5-60.0 [facility] MCH Auto (RBC) [Entitic mass ]on 09-30-2023 MCH (RBC) [Entitic mass] 22.7 pg 25.9-34.0 [facility] MCHC Auto (RBC) [Mass/Vol]on 09-30-2023 MCHC (RBC) [Mass/Vol] 30.4 g/dL 29.9-35.2 [facility] MCV Auto (RBC) [Entitic vol] on 09-30-2023 MCV (RBC) [Entitic vol] 74.6 fL 80.0-94.0 [facility] Monocytes Auto (Bld) [#/Vol] on 09-30-2023 Monocytes (Bld) [#/Vol] 0.9 10 3/uL 0.3-0.8 [facility] Monocytes/100 WBC Auto (Bld) on 09-30-2023 Monocytes/100 WBC (Bld) 6.7 % 1.7-12.0 [facility] Mucus LM Ql (Urine sed)on Mucus Ql (Urine sed) NONE SEEN NONE SEEN [facility] Neutrophils Auto (Bld) [#/Vo l]on 09-30-2023 Neutrophils (Bld) [#/Vol] 11.2 10 3/uL 1.4-6.5 [facility] Neutrophils/100 WBC Auto (Bl d)on 09-30-2023 Neutrophils/100 WBC (Bld) 80.8 % 43.0-75.0 [facility] No Panel Informationon 09-29 Troponin I High Sensitivity 7.9 pg/mL 4.0-76.1 [facility] Comment on above: CUT-OFF POINTS HAVE BEEN [...] Blood Partial Pressure CO2 29.6 mm[Hg] 40.0-52.0 [facility] Venous Blood pH 7.405 7.330-7.43 0 [facility] Urine Culture Reflexed NO [facility] C-Reactive Protein, Quantitative 14.76 mg/dL <=0.50 [facility] Eosinophils # (Auto) 0.2 10 3/uL 0.0-0.7 [facility] Immature Granulocyte # (Auto) 0.09 10 3/uL 0.00-0.03 [facility] No Panel InformationOrdered By: Chandrika Castanon on 09-30-2023 Blood Culture 2 [facility] Wound Culture [facility] Blood Culture 1 [facility] Platelet mean volume Auto (B ld) [Entitic vol]on 09-30-2023 Platelet mean volume (Bld) [Entitic vol] 10.9 fL 9.5-13.5 [facility] Platelets Auto (Bld) [#/Vol] on 09-30-2023 Platelets (Bld) [#/Vol] 227 10 3/uL 150-450 [facility] Protein Auto test strip (U) [Mass/Vol]on 09-30-2023 Protein (U) [Mass/Vol] Negative NEG/TRACE Fi [facility] Prothrombin time (PT)on 09-04 PT Coag (PPP) [Time] 12.9 s 9.0-11.6 [facility] RBC Auto (Bld) [#/Vol]on RBC (Bld) [#/Vol] 4.41 10 6/uL 4.70-6.10 [facility] Serum or plasma albumin/glob ulin mass ratioon 09-30-2023 Albumin/Globulin [Mass ratio] 0.5 {ratio} [facility] Serum or plasma anion gap de terminationon 09-30-2023 Anion gap [Moles/Vol] 25.6 mmol/L Fi [facility] Specific gravity Auto test s trip (U) [Rel density]on 09-30-2023 Specific gravity (U) [Rel density] CLEAR CLEAR [facility] Urine bacteria detection by automated methodon 09-30-2023 Bacteria Auto Ql (U) NONE SEEN #/HPF NONE SEEN [facility] Urine glucose measurement by test strip (mass/volume)on 09-30-2023 Glucose Test strip (U) [Mass/Vol] 500 mg/dL NEGATIVE [facility] Urine hemoglobin detection b y automated test stripon 09-30-2023 Hemoglobin Auto test strip Ql (U) TRACE-I NEGATIVE [facility] Urine nitrite detection by a utomated test stripon 09-30-2023 Nitrite Auto test strip Ql (U) Negative NEGATIVE [facility] Urine sediment crystal ident ification by light microscopyon 09-30-2023 Crystals LM Nom (Urine sed) None Seen #/HPF None Seen [facility] Urine sediment leukocyte cou nt by microscopy (number/high power field)on 09-30-2023 WBC LM.HPF (Urine sed) [#/Area] NONE SEEN #/HPF NONE SEEN [facility] Urobilinogen Auto test strip (U) [Mass/Vol]on 09-30-2023 Urobilinogen Qn (U) 0.2 {Brendan'U}/dL 0.2-1.0 [facility] pH Auto test strip (U)on pH (U) 5.5 [pH] 5.0-9.0 [facility] Guy 09-21-2023 L Specimen: [id number] Received: 09/21/23 Status: COLTON Nath Num: [id number] Spec Type: Surgical Subm Dr: Paula Elias DPM, MS Tissues: A Bone Fragments - Other than Path Fracture Procedures: HE, Gross/Micro L3, Decalcification Age/ Patient Sex Location Account Attending Physician Solomon Feldman SR 58/M LABELL [id number] Paula Elias DPM, MS SPEC NUM: [id number] RECD: 09/21/23 STATUS: COLTON NATH NUM: [id number] SHAKIRA: 09/21/[address]: Paula Elias DPM, MS ENTERED: 09/21/[address] [facility] DR: SPEC TYPE: Surgical DEPT: RAMSEY MARCANO ENTERED BY: [id number] RECV BY: [id number] ORDERED: HE, Gross/Micro L3, Decalcification ORDERED: HE, [...] excisional debridement with skin substitute. CPT Codes 87078, 55049 Specimen: [id number] Received: 09/21/23 Status: COLTON Tayler Num: [id number] Spec Type: Surgical Subm Dr: Paula Elias,LINDSEY, MS Tissues: A Bone Fragments - Other than Path Fracture Procedures: LULU, Gross/Micro L3, Decalcification Patient: Solomon Feldman SR [id number] (Continued) Signed (signature on file) Victor Hugo Sotelo MD 09/26/23 [id number] Normal [facility] Laboratory - Microbiology an d Antimicrobial susceptibilityOrdered By: Jenaro Lynch on 09-21-2023 Microscopic observation Gram stain Nom (Unsp spec) [facility] Activated partial thrombopla stin time (aPTT) in platelet poor plasma by coagulation aon 09-18-2023 aPTT Coag (PPP) [Time] 32.0 s 22.3-36.2 [facility] Basophils Auto (Bld) [#/Vol] on 09-18-2023 Basophils (Bld) [#/Vol] 0.1 10 3/uL 0.0-0.1 [facility] Basophils/100 WBC Auto (Bld) on 09-18-2023 Basophils/100 WBC (Bld) 0.9 % 0.2-2.0 [facility] Eosinophils/100 WBC Auto (Bl d)on 09-18-2023 Eosinophils/100 WBC (Bld) 2.3 % 0.9-7.0 [facility] Erythrocyte distribution wid th Auto (RBC) [Ratio]on 09-18-2023 Erythrocyte distribution width (RBC) [Ratio] 18.8 % 11.0-15.0 [facility] Estimated glomerular filtrat ion rate (GFR) non- Americanon 09-18-2023 GFR/1.73 sq M.predicted among non-blacks MDRD (S/P/Bld) [Vol rate/Area] 27 mL/min/{1.73_m2} >=60 [facility] Hematocrit Auto (Bld) [Volum e fraction]on 09-18-2023 Hematocrit (Bld) [Volume fraction] 35.0 % 42.0-54.0 [facility] Hemoglobin [Mass/volume] in Bloodon 09-18-2023 Hemoglobin (Bld) [Mass/Vol] 10.3 g/dL 14.0-18.0 [facility] INR in Platelet poor plasma by Coagulation assayon 09-18-2023 INR Coag (PPP) [Relative time] 1.08 {INR} [facility] Comment on above: DESIRED INR:2.0-3.0 CONDITIONS NOT LISTED BELOW2.5-3.5 FOR PROSTHETIC HEART VALVE REPLACEMENT2.5-3.5 RECURRENT THROMBOSIS Laboratory - Chemistry and C hemistry - challengeon 09-18-2023 Calcium [Mass/Vol] 8.9 mg/dL 8.5-10.1 [facility] Chloride [Moles/Vol] 97 mmol/L 98-107 [facility] CO2 [Moles/Vol] 28.2 mmol/L 21.0-32.0 [facility] Creatinine [Mass/Vol] 2.47 mg/dL 0.70-1.30 [facility] GFR/1.73 sq M.predicted MDRD (S/P/Bld) [Vol rate/Area] 33 mL/min/{1.73_m2} >=60 [facility] Glucose [Mass/Vol] 200 mg/dL 74-106 [facility] Potassium [Moles/Vol] 3.7 mmol/L 3.5-5.1 [facility] Sodium [Moles/Vol] 137 mmol/L 136-145 [facility] Urea nitrogen [Mass/Vol] 23.0 mg/dL 7.0-18.0 [facility] Urea nitrogen/Creatinine [Mass ratio] 9.3 mg/mg [facility] Laboratory - Hematology and Cell countson 09-18-2023 Immature granulocytes/100 WBC (Bld) 0.6 % 0.0-0.5 [facility] Leukocytes [#/volume] correc jorge for nucleated erythrocytes in Blood by Automated counon 09-18-2023 WBC corrected for nucl RBC Auto (Bld) [#/Vol] 12.4 10 3/uL 4.0-11.0 [facility] Lymphocytes Auto (Bld) [#/Vo l]on 09-18-2023 Lymphocytes (Bld) [#/Vol] 2.4 10 3/uL 1.2-3.8 [facility] Lymphocytes/100 WBC Auto (Bl d)on 09-18-2023 Lymphocytes/100 WBC (Bld) 19.6 % 20.5-60.0 [facility] MCH Auto (RBC) [Entitic mass ]on 09-18-2023 MCH (RBC) [Entitic mass] 22.2 pg 25.9-34.0 [facility] MCHC Auto (RBC) [Mass/Vol]on 09-18-2023 MCHC (RBC) [Mass/Vol] 29.4 g/dL 29.9-35.2 [facility] MCV Auto (RBC) [Entitic vol] on 09-18-2023 MCV (RBC) [Entitic vol] 75.3 fL 80.0-94.0 [facility] Monocytes Auto (Bld) [#/Vol] on 09-18-2023 Monocytes (Bld) [#/Vol] 1.2 10 3/uL 0.3-0.8 [facility] Monocytes/100 WBC Auto (Bld) on 09-18-2023 Monocytes/100 WBC (Bld) 10.0 % 1.7-12.0 [facility] Neutrophils Auto (Bld) [#/Vo l]on 09-18-2023 Neutrophils (Bld) [#/Vol] 8.2 10 3/uL 1.4-6.5 [facility] Neutrophils/100 WBC Auto (Bl d)on 09-18-2023 Neutrophils/100 WBC (Bld) 66.6 % 43.0-75.0 [facility] No Panel Informationon 09-17 Eosinophils # (Auto) 0.3 10 3/uL 0.0-0.7 [facility] Immature Granulocyte # (Auto) 0.07 10 3/uL 0.00-0.03 [facility] Platelet mean volume Auto (B ld) [Entitic vol]on 09-18-2023 Platelet mean volume (Bld) [Entitic vol] 10.9 fL 9.5-13.5 [facility] Platelets Auto (Bld) [#/Vol] on 09-18-2023 Platelets (Bld) [#/Vol] 300 10 3/uL 150-450 [facility] Prothrombin time (PT)on 09-03 PT Coag (PPP) [Time] 11.4 s 9.0-11.6 [facility] RBC Auto (Bld) [#/Vol]on RBC (Bld) [#/Vol] 4.65 10 6/uL 4.70-6.10 [facility] Serum or plasma anion gap de terminationon 09-18-2023 Anion gap [Moles/Vol] 15.5 mmol/L [facility] - Microbiology an d Antimicrobial susceptibilityOrdered By: Jenaro Lynch on 08-10-2023 Microscopic observation Gram stain Nom (Unsp spec) [facility] No Panel Informationon 08-09 Fungal Smear Result [facility] Miscellaneous Test Comment See comment [facility] Comment on above: Specimen Source: JONO TRT - Foot Right - Foot Rt - 604.000 No Panel InformationOrdered By: Jenaro Lynch on 08-10-2023 Acid Fast Culture [facility] Acid Fast Smear [facility] AFB Specimen Processing [facility] Tissue Culture [facility] Basophils Auto (Bld) [#/Vol] on 08-07-2023 Basophils (Bld) [#/Vol] 0.1 10 3/uL 0.0-0.1 [facility] Basophils/100 WBC Auto (Bld) on 08-07-2023 Basophils/100 WBC (Bld) 0.7 % 0.2-2.0 [facility] Eosinophils/100 WBC Auto (Bl d)on 08-07-2023 Eosinophils/100 WBC (Bld) 3.9 % 0.9-7.0 [facility] Erythrocyte distribution wid th Auto (RBC) [Ratio]on 08-07-2023 Erythrocyte distribution width (RBC) [Ratio] 16.9 % 11.0-15.0 [facility] Estimated glomerular filtrat ion rate (GFR) non- Americanon 08-07-2023 GFR/1.73 sq M.predicted among non-blacks MDRD (S/P/Bld) [Vol rate/Area] 42 mL/min/{1.73_m2} >=60 [facility] Globulin Calc (S) [Mass/Vol] on 08-07-2023 Globulin (S) [Mass/Vol] 4.0 g/dL [facility] Hematocrit Auto (Bld) [Volum e fraction]on 08-07-2023 Hematocrit (Bld) [Volume fraction] 31.5 % 42.0-54.0 [facility] Hemoglobin [Mass/volume] in Bloodon 08-07-2023 Hemoglobin (Bld) [Mass/Vol] 9.4 g/dL 14.0-18.0 [facility] Laboratory - Chemistry and C hemistry - challengeon 08-07-2023 Albumin [Mass/Vol] 2.1 g/dL 3.4-5.0 [facility] ALP [Catalytic activity/Vol] 144 U/L 46-116 [facility] ALT [Catalytic activity/Vol] 21 U/L 16-63 [facility] AST [Catalytic activity/Vol] 25 U/L 15-37 [facility] Bilirubin [Mass/Vol] 0.4 mg/dL 0.2-1.0 [facility] Calcium [Mass/Vol] 8.1 mg/dL 8.5-10.1 [facility] Chloride [Moles/Vol] 102 mmol/L 98-107 [facility] CO2 [Moles/Vol] 24.7 mmol/L 21.0-32.0 [facility] Creatinine [Mass/Vol] 1.70 mg/dL 0.70-1.30 [facility] GFR/1.73 sq M.predicted MDRD (S/P/Bld) [Vol rate/Area] 50 mL/min/{1.73_m2} >=60 [facility] Glucose [Mass/Vol] 188 mg/dL 74-106 [facility] Potassium [Moles/Vol] 4.6 mmol/L 3.5-5.1 [facility] Protein [Mass/Vol] 6.1 g/dL 6.4-8.2 [facility] Sodium [Moles/Vol] 135 mmol/L 136-145 [facility] Urea nitrogen [Mass/Vol] 33.0 mg/dL 7.0-18.0 [facility] Urea nitrogen/Creatinine [Mass ratio] 19.4 mg/mg [facility] Laboratory - Hematology and Cell countson 08-07-2023 Immature granulocytes/100 WBC (Bld) 0.7 % 0.0-0.5 [facility] Leukocytes [#/volume] correc jorge for nucleated erythrocytes in Blood by Automated counon 08-07-2023 WBC corrected for nucl RBC Auto (Bld) [#/Vol] 12.0 10 3/uL 4.0-11.0 [facility] Lymphocytes Auto (Bld) [#/Vo l]on 08-07-2023 Lymphocytes (Bld) [#/Vol] 1.5 10 3/uL 1.2-3.8 [facility] Lymphocytes/100 WBC Auto (Bl d)on 08-07-2023 Lymphocytes/100 WBC (Bld) 12.4 % 20.5-60.0 [facility] MCH Auto (RBC) [Entitic mass ]on 08-07-2023 MCH (RBC) [Entitic mass] 22.5 pg 25.9-34.0 [facility] MCHC Auto (RBC) [Mass/Vol]on 08-07-2023 MCHC (RBC) [Mass/Vol] 29.8 g/dL 29.9-35.2 [facility] MCV Auto (RBC) [Entitic vol] on 08-07-2023 MCV (RBC) [Entitic vol] 75.4 fL 80.0-94.0 [facility] Monocytes Auto (Bld) [#/Vol] on 08-07-2023 Monocytes (Bld) [#/Vol] 1.2 10 3/uL 0.3-0.8 [facility] Monocytes/100 WBC Auto (Bld) on 08-07-2023 Monocytes/100 WBC (Bld) 10.1 % 1.7-12.0 [facility] Neutrophils Auto (Bld) [#/Vo l]on 08-07-2023 Neutrophils (Bld) [#/Vol] 8.7 10 3/uL 1.4-6.5 [facility] Neutrophils/100 WBC Auto (Bl d)on 08-07-2023 Neutrophils/100 WBC (Bld) 72.2 % 43.0-75.0 [facility] No Panel Informationon 08-06 Eosinophils # (Auto) 0.5 10 3/uL 0.0-0.7 [facility] Immature Granulocyte # (Auto) 0.09 10 3/uL 0.00-0.03 [facility] Platelet mean volume Auto (B ld) [Entitic vol]on 08-07-2023 Platelet mean volume (Bld) [Entitic vol] 11.7 fL 9.5-13.5 [facility] Platelets Auto (Bld) [#/Vol] on 08-07-2023 Platelets (Bld) [#/Vol] 222 10 3/uL 150-450 [facility] RBC Auto (Bld) [#/Vol]on RBC (Bld) [#/Vol] 4.18 10 6/uL 4.70-6.10 [facility] Serum or plasma albumin/glob ulin mass ratioon 08-07-2023 Albumin/Globulin [Mass ratio] 0.5 {ratio} [facility] Serum or plasma anion gap de terminationon 08-07-2023 Anion gap [Moles/Vol] 12.9 mmol/L [facility] Basophils Auto (Bld) [#/Vol] on 08-06-2023 Basophils (Bld) [#/Vol] 0.1 10 3/uL 0.0-0.1 [facility] Basophils/100 WBC Auto (Bld) on 08-06-2023 Basophils/100 WBC (Bld) 0.7 % 0.2-2.0 [facility] Eosinophils/100 WBC Auto (Bl d)on 08-06-2023 Eosinophils/100 WBC (Bld) 3.3 % 0.9-7.0 [facility] Erythrocyte distribution wid th Auto (RBC) [Ratio]on 08-06-2023 Erythrocyte distribution width (RBC) [Ratio] 17.0 % 11.0-15.0 [facility] Estimated glomerular filtrat ion rate (GFR) non- Americanon 08-06-2023 GFR/1.73 sq M.predicted among non-blacks MDRD (S/P/Bld) [Vol rate/Area] 36 mL/min/{1.73_m2} >=60 [facility] Globulin Calc (S) [Mass/Vol] on 08-06-2023 Globulin (S) [Mass/Vol] 4.0 g/dL [facility] Hematocrit Auto (Bld) [Volum e fraction]on 08-06-2023 Hematocrit (Bld) [Volume fraction] 30.1 % 42.0-54.0 [facility] Hemoglobin [Mass/volume] in Bloodon 08-06-2023 Hemoglobin (Bld) [Mass/Vol] 8.8 g/dL 14.0-18.0 [facility] Laboratory - Chemistry and C hemistry - challengeon 08-06-2023 Albumin [Mass/Vol] 2.0 g/dL 3.4-5.0 [facility] ALP [Catalytic activity/Vol] 127 U/L 46-116 [facility] ALT [Catalytic activity/Vol] 14 U/L 16-63 [facility] AST [Catalytic activity/Vol] 16 U/L 15-37 [facility] Bilirubin [Mass/Vol] 0.4 mg/dL 0.2-1.0 [facility] Calcium [Mass/Vol] 7.9 mg/dL 8.5-10.1 [facility] Chloride [Moles/Vol] 99 mmol/L 98-107 [facility] CO2 [Moles/Vol] 25.0 mmol/L 21.0-32.0 [facility] Creatinine [Mass/Vol] 1.95 mg/dL 0.70-1.30 [facility] GFR/1.73 sq M.predicted MDRD (S/P/Bld) [Vol rate/Area] 43 mL/min/{1.73_m2} >=60 [facility] Glucose [Mass/Vol] 297 mg/dL 74-106 [facility] Potassium [Moles/Vol] 4.4 mmol/L 3.5-5.1 [facility] Protein [Mass/Vol] 6.0 g/dL 6.4-8.2 [facility] Sodium [Moles/Vol] 133 mmol/L 136-145 [facility] Urea nitrogen [Mass/Vol] 28.0 mg/dL 7.0-18.0 [facility] Urea nitrogen/Creatinine [Mass ratio] 14.4 mg/mg [facility] Laboratory - Hematology and Cell countson 08-06-2023 Immature granulocytes/100 WBC (Bld) 0.4 % 0.0-0.5 [facility] Leukocytes [#/volume] correc jorge for nucleated erythrocytes in Blood by Automated counon 08-06-2023 WBC corrected for nucl RBC Auto (Bld) [#/Vol] 10.1 10 3/uL 4.0-11.0 [facility] Lymphocytes Auto (Bld) [#/Vo l]on 08-06-2023 Lymphocytes (Bld) [#/Vol] 1.5 10 3/uL 1.2-3.8 [facility] Lymphocytes/100 WBC Auto (Bl d)on 08-06-2023 Lymphocytes/100 WBC (Bld) 14.4 % 20.5-60.0 [facility] MCH Auto (RBC) [Entitic mass ]on 08-06-2023 MCH (RBC) [Entitic mass] 22.5 pg 25.9-34.0 [facility] MCHC Auto (RBC) [Mass/Vol]on 08-06-2023 MCHC (RBC) [Mass/Vol] 29.2 g/dL 29.9-35.2 [facility] MCV Auto (RBC) [Entitic vol] on 08-06-2023 MCV (RBC) [Entitic vol] 77.0 fL 80.0-94.0 [facility] Monocytes Auto (Bld) [#/Vol] on 08-06-2023 Monocytes (Bld) [#/Vol] 1.1 10 3/uL 0.3-0.8 [facility] Monocytes/100 WBC Auto (Bld) on 08-06-2023 Monocytes/100 WBC (Bld) 10.4 % 1.7-12.0 [facility] Neutrophils Auto (Bld) [#/Vo l]on 08-06-2023 Neutrophils (Bld) [#/Vol] 7.2 10 3/uL 1.4-6.5 [facility] Neutrophils/100 WBC Auto (Bl d)on 08-06-2023 Neutrophils/100 WBC (Bld) 70.8 % 43.0-75.0 [facility] No Panel Informationon 08-05 Vancomycin Level Trough 13.6 ug/mL 5.0-20.0 [facility] Eosinophils # (Auto) 0.3 10 3/uL 0.0-0.7 [facility] Immature Granulocyte # (Auto) 0.04 10 3/uL 0.00-0.03 [facility] Platelet mean volume Auto (B ld) [Entitic vol]on 08-06-2023 Platelet mean volume (Bld) [Entitic vol] 12.2 fL 9.5-13.5 [facility] Platelets Auto (Bld) [#/Vol] on 08-06-2023 Platelets (Bld) [#/Vol] 190 10 3/uL 150-450 [facility] RBC Auto (Bld) [#/Vol]on RBC (Bld) [#/Vol] 3.91 10 6/uL 4.70-6.10 [facility] Serum or plasma albumin/glob ulin mass ratioon 08-06-2023 Albumin/Globulin [Mass ratio] 0.5 {ratio} [facility] Serum or plasma anion gap de terminationon 08-06-2023 Anion gap [Moles/Vol] 13.4 mmol/L [facility] Automated epithelial cells c ount in urine sediment (number/area)on 08-05-2023 Epithelial cells Auto (Urine sed) [#/Area] RARE #/LPF NONE/RARE [facility] Automated leukocytes count i n urine sediment (number/area)on 08-05-2023 WBC Auto (Urine sed) [#/Area] NONE SEEN #/HPF 0-2 [facility] Automated urine specific gra vity by refractometryon 08-05-2023 Specific gravity Refractometry automated (U) [Rel density] <=1.005 1.005-1.02 5 [facility] Basophils Auto (Bld) [#/Vol] on 08-05-2023 Basophils (Bld) [#/Vol] 0.1 10 3/uL 0.0-0.1 [facility] Basophils/100 WBC Auto (Bld) on 08-05-2023 Basophils/100 WBC (Bld) 0.7 % 0.2-2.0 [facility] Bilirubin Auto test strip (U ) [Mass/Vol]on 08-05-2023 Bilirubin (U) [Mass/Vol] Negative NEGATIVE [facility] Casts typing in urine sedime nt by light microscopyon 08-05-2023 Casts LM Nom (Urine sed) NONE SEEN #/LPF NONE SEEN [facility] Color Auto (U)on 08-05-2023 Color (U) LT. YELLOW YELLOW [facility] Eosinophils/100 WBC Auto (Bl d)on 08-05-2023 Eosinophils/100 WBC (Bld) 2.5 % 0.9-7.0 [facility] Erythrocyte distribution wid th Auto (RBC) [Ratio]on 08-05-2023 Erythrocyte distribution width (RBC) [Ratio] 16.8 % 11.0-15.0 [facility] Estimated glomerular filtrat ion rate (GFR) non- Americanon 08-05-2023 GFR/1.73 sq M.predicted among non-blacks MDRD (S/P/Bld) [Vol rate/Area] 42 mL/min/{1.73_m2} >=60 [facility] Globulin Calc (S) [Mass/Vol] on 08-05-2023 Globulin (S) [Mass/Vol] 4.1 g/dL [facility] Glucose mean value [Mass/vol ume] in Blood Estimated from glycated hemoglobinon 08-05-2023 Average glucose Estimated from glycated hemoglobin (Bld) [Mass/Vol] 214 mg/dL [facility] Hematocrit Auto (Bld) [Volum e fraction]on 08-05-2023 Hematocrit (Bld) [Volume fraction] 31.8 % 42.0-54.0 [facility] Hemoglobin [Mass/volume] in Bloodon 08-05-2023 Hemoglobin (Bld) [Mass/Vol] 9.4 g/dL 14.0-18.0 [facility] Ketones Auto test strip (U) [Mass/Vol]on 08-05-2023 Ketones (U) [Mass/Vol] Negative NEGATIVE [facility] - Chemistry and C hemistry - challengeon 08-05-2023 Albumin [Mass/Vol] 2.3 g/dL 3.4-5.0 [facility] ALP [Catalytic activity/Vol] 111 U/L 46-116 [facility] ALT [Catalytic activity/Vol] 11 U/L 16-63 [facility] AST [Catalytic activity/Vol] 11 U/L 15-37 [facility] Bilirubin [Mass/Vol] 0.5 mg/dL 0.2-1.0 [facility] Calcium [Mass/Vol] 8.1 mg/dL 8.5-10.1 [facility] Chloride [Moles/Vol] 101 mmol/L 98-107 [facility] CO2 [Moles/Vol] 25.6 mmol/L 21.0-32.0 [facility] Creatinine [Mass/Vol] 1.68 mg/dL 0.70-1.30 [facility] GFR/1.73 sq M.predicted MDRD (S/P/Bld) [Vol rate/Area] 51 mL/min/{1.73_m2} >=60 [facility] Glucose [Mass/Vol] 111 mg/dL 74-106 [facility] Potassium [Moles/Vol] 3.7 mmol/L 3.5-5.1 [facility] Protein [Mass/Vol] 6.4 g/dL 6.4-8.2 [facility] Sodium [Moles/Vol] 138 mmol/L 136-145 [facility] Urea nitrogen [Mass/Vol] 17.0 mg/dL 7.0-18.0 [facility] Urea nitrogen/Creatinine [Mass ratio] 10.1 mg/mg [facility] Laboratory - Hematology and Cell countson 08-05-2023 HbA1c (Bld) [Mass fraction] 9.1 % 4.5-6.2 [facility] Comment on above: ADA RECOMMENDED LIMI T 4.0 - 6.0ADA THERAPEUTIC TARGET < 7.0ACTION SUGGESTED> 7.0 Immature granulocytes/100 WBC (Bld) 0.4 % 0.0-0.5 [facility] Laboratory - Microbiology an d Antimicrobial susceptibilityOrdered By: Jenaro Lynch on 08-05-2023 Microscopic observation Gram stain Nom (Unsp spec) [facility] Leukocytes [#/volume] correc jorge for nucleated erythrocytes in Blood by Automated counon 08-05-2023 WBC corrected for nucl RBC Auto (Bld) [#/Vol] 12.3 10 3/uL 4.0-11.0 [facility] Lymphocytes Auto (Bld) [#/Vo l]on 08-05-2023 Lymphocytes (Bld) [#/Vol] 1.5 10 3/uL 1.2-3.8 [facility] Lymphocytes/100 WBC Auto (Bl d)on 08-05-2023 Lymphocytes/100 WBC (Bld) 11.8 % 20.5-60.0 [facility] MCH Auto (RBC) [Entitic mass ]on 08-05-2023 MCH (RBC) [Entitic mass] 22.4 pg 25.9-34.0 [facility] MCHC Auto (RBC) [Mass/Vol]on 08-05-2023 MCHC (RBC) [Mass/Vol] 29.6 g/dL 29.9-35.2 [facility] MCV Auto (RBC) [Entitic vol] on 08-05-2023 MCV (RBC) [Entitic vol] 75.9 fL 80.0-94.0 [facility] Monocytes Auto (Bld) [#/Vol] on 08-05-2023 Monocytes (Bld) [#/Vol] 1.3 10 3/uL 0.3-0.8 [facility] Monocytes/100 WBC Auto (Bld) on 08-05-2023 Monocytes/100 WBC (Bld) 10.7 % 1.7-12.0 [facility] Mucus LM Ql (Urine sed)on Mucus Ql (Urine sed) NONE SEEN NONE SEEN [facility] Neutrophils Auto (Bld) [#/Vo l]on 08-05-2023 Neutrophils (Bld) [#/Vol] 9.1 10 3/uL 1.4-6.5 [facility] Neutrophils/100 WBC Auto (Bl d)on 08-05-2023 Neutrophils/100 WBC (Bld) 73.9 % 43.0-75.0 [facility] No Panel Informationon 08-04 Eosinophils # (Auto) 0.3 10 3/uL 0.0-0.7 [facility] Immature Granulocyte # (Auto) 0.05 10 3/uL 0.00-0.03 [facility] Platelet mean volume Auto (B ld) [Entitic vol]on 08-05-2023 Platelet mean volume (Bld) [Entitic vol] 11.2 fL 9.5-13.5 [facility] Platelets Auto (Bld) [#/Vol] on 08-05-2023 Platelets (Bld) [#/Vol] 184 10 3/uL 150-450 [facility] Protein Auto test strip (U) [Mass/Vol]on 08-05-2023 Protein (U) [Mass/Vol] Negative NEG/TRACE Fi [facility] RBC Auto (Bld) [#/Vol]on RBC (Bld) [#/Vol] 4.19 10 6/uL 4.70-6.10 [facility] Serum or plasma albumin/glob ulin mass ratioon 08-05-2023 Albumin/Globulin [Mass ratio] 0.6 {ratio} [facility] Serum or plasma anion gap de terminationon 08-05-2023 Anion gap [Moles/Vol] 15.1 mmol/L Fi [facility] Specific gravity Auto test s trip (U) [Rel density]on 08-05-2023 Specific gravity (U) [Rel density] CLEAR CLEAR [facility] Urine bacteria detection by automated methodon 08-05-2023 Bacteria Auto Ql (U) TRACE #/HPF NONE SEEN [facility] Urine glucose measurement by test strip (mass/volume)on 08-05-2023 Glucose Test strip (U) [Mass/Vol] >=1000 mg/dL NEGATIVE [facility] Urine hemoglobin detection b y automated test stripon 08-05-2023 Hemoglobin Auto test strip Ql (U) Negative NEGATIVE [facility] Urine nitrite detection by a utomated test stripon 08-05-2023 Nitrite Auto test strip Ql (U) Negative NEGATIVE [facility] Urine sediment crystal ident ification by light microscopyon 08-05-2023 Crystals LM Nom (Urine sed) None Seen #/HPF None Seen [facility] Urine sediment leukocyte cou nt by microscopy (number/high power field)on 08-05-2023 WBC LM.HPF (Urine sed) [#/Area] NONE SEEN #/HPF NONE SEEN [facility] Urobilinogen Auto test strip (U) [Mass/Vol]on 08-05-2023 Urobilinogen Qn (U) 0.2 {Brendan'U}/dL 0.2-1.0 [facility] pH Auto test strip (U)on pH (U) 6.0 [pH] 5.0-9.0 [facility] Basophils Auto (Bld) [#/Vol] on 08-04-2023 Basophils (Bld) [#/Vol] 0.1 10 3/uL 0.0-0.1 [facility] Basophils/100 WBC Auto (Bld) on 08-04-2023 Basophils/100 WBC (Bld) 0.8 % 0.2-2.0 [facility] Eosinophils/100 WBC Auto (Bl d)on 08-04-2023 Eosinophils/100 WBC (Bld) 2.8 % 0.9-7.0 [facility] Erythrocyte distribution wid th Auto (RBC) [Ratio]on 08-04-2023 Erythrocyte distribution width (RBC) [Ratio] 16.9 % 11.0-15.0 [facility] Estimated glomerular filtrat ion rate (GFR) non- Americanon 08-04-2023 GFR/1.73 sq M.predicted among non-blacks MDRD (S/P/Bld) [Vol rate/Area] 33 mL/min/{1.73_m2} >=60 [facility] Globulin Calc (S) [Mass/Vol] on 08-04-2023 Globulin (S) [Mass/Vol] 4.4 g/dL [facility] Hematocrit Auto (Bld) [Volum e fraction]on 08-04-2023 Hematocrit (Bld) [Volume fraction] 32.6 % 42.0-54.0 [facility] Hemoglobin [Mass/volume] in Bloodon 08-04-2023 Hemoglobin (Bld) [Mass/Vol] 9.6 g/dL 14.0-18.0 [facility] INR in Platelet poor plasma by Coagulation assayon 08-04-2023 INR Coag (PPP) [Relative time] 1.05 {INR} [facility] Comment on above: DESIRED INR:2.0-3.0 CONDITIONS NOT LISTED BELOW2.5-3.5 FOR PROSTHETIC HEART VALVE REPLACEMENT2.5-3.5 RECURRENT THROMBOSIS Laboratory - Chemistry and C hemistry - challengeon 08-04-2023 Albumin [Mass/Vol] 2.4 g/dL 3.4-5.0 [facility] ALP [Catalytic activity/Vol] 109 U/L 46-116 [facility] ALT [Catalytic activity/Vol] 9 U/L 16-63 [facility] AST [Catalytic activity/Vol] U/L 15-37 [facility] Bilirubin [Mass/Vol] 0.4 mg/dL 0.2-1.0 [facility] Calcium [Mass/Vol] 8.0 mg/dL 8.5-10.1 [facility] Chloride [Moles/Vol] 96 mmol/L 98-107 [facility] CO2 [Moles/Vol] 29.2 mmol/L 21.0-32.0 [facility] Creatinine [Mass/Vol] 2.06 mg/dL 0.70-1.30 [facility] GFR/1.73 sq M.predicted MDRD (S/P/Bld) [Vol rate/Area] 40 mL/min/{1.73_m2} >=60 [facility] Glucose [Mass/Vol] 329 mg/dL 74-106 [facility] Potassium [Moles/Vol] 3.5 mmol/L 3.5-5.1 [facility] Protein [Mass/Vol] 6.8 g/dL 6.4-8.2 [facility] Sodium [Moles/Vol] 132 mmol/L 136-145 [facility] Urea nitrogen [Mass/Vol] 20.0 mg/dL 7.0-18.0 [facility] Urea nitrogen/Creatinine [Mass ratio] 9.7 mg/mg [facility] Laboratory - Hematology and Cell countson 08-04-2023 ESR (Bld) [Velocity] 89 mm/h <=20 [facility] Immature granulocytes/100 WBC (Bld) 0.3 % 0.0-0.5 [facility] - Microbiology an d Antimicrobial susceptibilityOrdered By: Jenaro Lynch on 08-04-2023 Microscopic observation Gram stain Nom (Unsp spec) [facility] Leukocytes [#/volume] correc jorge for nucleated erythrocytes in Blood by Automated counon 08-04-2023 WBC corrected for nucl RBC Auto (Bld) [#/Vol] 11.6 10 3/uL 4.0-11.0 [facility] Lymphocytes Auto (Bld) [#/Vo l]on 08-04-2023 Lymphocytes (Bld) [#/Vol] 1.7 10 3/uL 1.2-3.8 [facility] Lymphocytes/100 WBC Auto (Bl d)on 08-04-2023 Lymphocytes/100 WBC (Bld) 14.9 % 20.5-60.0 [facility] MCH Auto (RBC) [Entitic mass ]on 08-04-2023 MCH (RBC) [Entitic mass] 22.3 pg 25.9-34.0 [facility] MCHC Auto (RBC) [Mass/Vol]on 08-04-2023 MCHC (RBC) [Mass/Vol] 29.4 g/dL 29.9-35.2 [facility] MCV Auto (RBC) [Entitic vol] on 08-04-2023 MCV (RBC) [Entitic vol] 75.8 fL 80.0-94.0 [facility] Monocytes Auto (Bld) [#/Vol] on 08-04-2023 Monocytes (Bld) [#/Vol] 1.2 10 3/uL 0.3-0.8 [facility] Monocytes/100 WBC Auto (Bld) on 08-04-2023 Monocytes/100 WBC (Bld) 10.4 % 1.7-12.0 [facility] Neutrophils Auto (Bld) [#/Vo l]on 08-04-2023 Neutrophils (Bld) [#/Vol] 8.2 10 3/uL 1.4-6.5 [facility] Neutrophils/100 WBC Auto (Bl d)on 08-04-2023 Neutrophils/100 WBC (Bld) 70.8 % 43.0-75.0 [facility] No Panel InformationOrdered By: Jenaro Lynch on 08-04-2023 Blood Culture 2 [facility] Blood Culture 1 [facility] Wound Culture [facility] No Panel Informationon 08-03 Aerobic & Anaerobic Susceptibility [facility] Miscellaneous Test Comment See comment [facility] Comment on above: Specimen Source: JONO T - Foot - Foot - 603.950 C-Reactive Protein, Quantitative 11.62 mg/dL <=0.50 [facility] Eosinophils # (Auto) 0.3 10 3/uL 0.0-0.7 [facility] Immature Granulocyte # (Auto) 0.04 10 3/uL 0.00-0.03 [facility] Platelet mean volume Auto (B ld) [Entitic vol]on 08-04-2023 Platelet mean volume (Bld) [Entitic vol] 11.5 fL 9.5-13.5 [facility] Platelets Auto (Bld) [#/Vol] on 08-04-2023 Platelets (Bld) [#/Vol] 206 10 3/uL 150-450 [facility] Prothrombin time (PT)on PT Coag (PPP) [Time] 11.1 s 9.0-11.6 [facility] RBC Auto (Bld) [#/Vol]on RBC (Bld) [#/Vol] 4.30 10 6/uL 4.70-6.10 [facility] Serum or plasma albumin/glob ulin mass ratioon 08-04-2023 Albumin/Globulin [Mass ratio] 0.5 {ratio} [facility] Serum or plasma anion gap de terminationon 08-04-2023 Anion gap [Moles/Vol] 10.3 mmol/L [facility] Serum procalcitonin measurem enton 08-04-2023 Procalcitonin [Mass/Vol] 0.10 ng/mL 0.00-0.50 [facility] Basophils Auto (Bld) [#/Vol] on 08-03-2023 Basophils (Bld) [#/Vol] 0.1 10 3/uL 0.0-0.1 [facility] Basophils/100 WBC Auto (Bld) on 08-03-2023 Basophils/100 WBC (Bld) 0.7 % 0.2-2.0 [facility] Eosinophils/100 WBC Auto (Bl d)on 08-03-2023 Eosinophils/100 WBC (Bld) 1.8 % 0.9-7.0 [facility] Erythrocyte distribution wid th Auto (RBC) [Ratio]on 08-03-2023 Erythrocyte distribution width (RBC) [Ratio] 17.0 % 11.0-15.0 [facility] Estimated glomerular filtrat ion rate (GFR) non- Americanon 08-03-2023 GFR/1.73 sq M.predicted among non-blacks MDRD (S/P/Bld) [Vol rate/Area] 27 mL/min/{1.73_m2} >=60 [facility] Globulin Calc (S) [Mass/Vol] on 08-03-2023 Globulin (S) [Mass/Vol] 5.0 g/dL [facility] Hematocrit Auto (Bld) [Volum e fraction]on 08-03-2023 Hematocrit (Bld) [Volume fraction] 38.9 % 42.0-54.0 [facility] Hemoglobin [Mass/volume] in Bloodon 08-03-2023 Hemoglobin (Bld) [Mass/Vol] 11.8 g/dL 14.0-18.0 [facility] Laboratory - Chemistry and C hemistry - challengeon 08-03-2023 Lactate [Moles/Vol] 1.6 mmol/L 0.4-2.0 [facility] Albumin [Mass/Vol] 3.3 g/dL 3.4-5.0 [facility] ALP [Catalytic activity/Vol] 134 U/L 46-116 [facility] ALT [Catalytic activity/Vol] 13 U/L 16-63 [facility] AST [Catalytic activity/Vol] U/L 15-37 [facility] Bilirubin [Mass/Vol] 0.6 mg/dL 0.2-1.0 [facility] Calcium [Mass/Vol] 9.3 mg/dL 8.5-10.1 [facility] Chloride [Moles/Vol] 92 mmol/L 98-107 [facility] CO2 [Moles/Vol] 31.0 mmol/L 21.0-32.0 [facility] Creatinine [Mass/Vol] 2.45 mg/dL 0.70-1.30 [facility] GFR/1.73 sq M.predicted MDRD (S/P/Bld) [Vol rate/Area] 33 mL/min/{1.73_m2} >=60 [facility] Glucose [Mass/Vol] 310 mg/dL 74-106 [facility] Potassium [Moles/Vol] 3.7 mmol/L 3.5-5.1 [facility] Protein [Mass/Vol] 8.3 g/dL 6.4-8.2 [facility] Sodium [Moles/Vol] 133 mmol/L 136-145 [facility] Urea nitrogen [Mass/Vol] 23.0 mg/dL 7.0-18.0 [facility] Urea nitrogen/Creatinine [Mass ratio] 9.4 mg/mg [facility] Laboratory - Hematology and Cell countson 08-03-2023 ESR (Bld) [Velocity] 118 mm/h <=20 [facility] Immature granulocytes/100 WBC (Bld) 0.4 % 0.0-0.5 [facility] Leukocytes [#/volume] correc jorge for nucleated erythrocytes in Blood by Automated counon 08-03-2023 WBC corrected for nucl RBC Auto (Bld) [#/Vol] 14.6 10 3/uL 4.0-11.0 [facility] Lymphocytes Auto (Bld) [#/Vo l]on 08-03-2023 Lymphocytes (Bld) [#/Vol] 2.1 10 3/uL 1.2-3.8 [facility] Lymphocytes/100 WBC Auto (Bl d)on 08-03-2023 Lymphocytes/100 WBC (Bld) 14.3 % 20.5-60.0 [facility] MCH Auto (RBC) [Entitic mass ]on 08-03-2023 MCH (RBC) [Entitic mass] 22.6 pg 25.9-34.0 [facility] MCHC Auto (RBC) [Mass/Vol]on 08-03-2023 MCHC (RBC) [Mass/Vol] 30.3 g/dL 29.9-35.2 [facility] MCV Auto (RBC) [Entitic vol] on 08-03-2023 MCV (RBC) [Entitic vol] 74.4 fL 80.0-94.0 [facility] Monocytes Auto (Bld) [#/Vol] on 08-03-2023 Monocytes (Bld) [#/Vol] 1.4 10 3/uL 0.3-0.8 [facility] Monocytes/100 WBC Auto (Bld) on 08-03-2023 Monocytes/100 WBC (Bld) 9.4 % 1.7-12.0 [facility] Neutrophils Auto (Bld) [#/Vo l]on 08-03-2023 Neutrophils (Bld) [#/Vol] 10.7 10 3/uL 1.4-6.5 [facility] Neutrophils/100 WBC Auto (Bl d)on 08-03-2023 Neutrophils/100 WBC (Bld) 73.4 % 43.0-75.0 [facility] No Panel Informationon C-Reactive Protein, Quantitative 14.63 mg/dL <=0.50 [facility] Eosinophils # (Auto) 0.3 10 3/uL 0.0-0.7 [facility] Immature Granulocyte # (Auto) 0.06 10 3/uL 0.00-0.03 [facility] Venous Blood Partial Pressure CO2 44.8 mm[Hg] 40.0-52.0 [facility] Venous Blood pH 7.432 7.330-7.43 0 [facility] No Panel InformationOrdered By: Jenaro Lynch on 08-03-2023 Blood Culture 2 [facility] Blood Culture 1 [facility] Platelet mean volume Auto (B ld) [Entitic vol]on 08-03-2023 Platelet mean volume (Bld) [Entitic vol] 11.4 fL 9.5-13.5 [facility] Platelets Auto (Bld) [#/Vol] on 08-03-2023 Platelets (Bld) [#/Vol] 252 10 3/uL 150-450 [facility] RBC Auto (Bld) [#/Vol]on RBC (Bld) [#/Vol] 5.23 10 6/uL 4.70-6.10 [facility] Serum or plasma albumin/glob ulin mass ratioon 08-03-2023 Albumin/Globulin [Mass ratio] 0.7 {ratio} [facility] Serum or plasma anion gap de terminationon 08-03-2023 Anion gap [Moles/Vol] 13.7 mmol/L [facility] US venous duplex LE BIon US venous duplex LE BI [facility] [place] [address] Ultrasound Report Signed Patient: Solomon Feldman SR MR#: [id number] : 1965 Acct:[id number] Age/Sex: 57 / M ADM Date: 07/12/23 Loc: ER Room: Type: DEP ER Attending Dr: Ordering Provider: Nancy Wilson [...] Howard Boss MD07/13/2023 11:56 AM Dictation Location: [place] [address] Tech: Nancy Pantoja Transcribed By: BOB 07/13/23 1156 Dictated By: Howard Boss MD 07/13/23 1156 Signed By: 07/13/23 1156 Normal [facility] US venous duplex UE LTon US venous duplex UE LT [facility] [address] [place] [id number] Ultrasound Report Signed Patient: Solomon Feldman SR MR#: [id number] : 1965 Acct:[id number] Age/Sex: 57 / M ADM Date: 07/12/23 Loc: ER Room: Type: DEP ER Attending Dr: Ordering Provider: Nancy Wilson [...] Howard Boss MD07/13/2023 11:56 AM Dictation Location: [place] [address] Tech: Nancy Pantoja Transcribed By: BOB 07/13/23 1156 Dictated By: Howard Boss MD 07/13/23 1155 Signed By: 07/13/23 1156 Normal [facility] Activated partial thrombopla stin time (aPTT) in platelet poor plasma by coagulation aOrdered By: Nancy Wilson on 07-12-2023 aPTT Coag (PPP) [Time] 29.4 s 25.1-36.5 [facility] Comment on above: A hematocrit value g reater than 55% may lead to inaccurate results in coagulation testing. Patients having hematocrit values >55% require a special collection tube for coagulation studies. Please contact the laboratory at [phone] for redraw instructions. Alanine aminotransferase [En zymatic activity/volume] in Serum or PlasmaOrdered By: Nancy Wilson on 07-12-2023 ALT [Catalytic activity/Vol] 9 U/L 7-52 [facility] Albumin [Mass/volume] in Ser um or Plasma by Bromocresol green (BCG) dye binding methoOrdered By: Nancy Wilson on 07-12-2023 Albumin BCG dye [Mass/Vol] 3.9 g/dL 3.5-5.7 [facility] Alkaline phosphatase [Enzyma tic activity/volume] in Serum or PlasmaOrdered By: Nancy Wilson on 07-12-2023 ALP [Catalytic activity/Vol] 106 U/L 34-104 [facility] Aspartate aminotransferase [ Enzymatic activity/volume] in Serum or PlasmaOrdered By: Nancy Wilson on 07-12-2023 AST [Catalytic activity/Vol] 8 U/L 13-39 [facility] B-Type Natriuretic Peptideon 07-12-2023 Natriuretic peptide B (Bld) [Mass/Vol] 34.0 pg/mL Normal 5-100 [facility] Comment on above: Result Comment: PERF ORMED BY: [place] [id number] PATHOLOGIST SENIOR GAMEMASTER CLIFFORD LOBATO M.D. Performed By: #### P TT, CBC, PT, BNP, CMP, HS TROP, CK #### [facility] [address] [place] [address] [facility] Basophils Auto (Bld) [#/Vol] Ordered By: Nancy Wilson on 07-12-2023 Basophils (Bld) [#/Vol] 0.1 10*3/uL 0.0-0.2 [facility] Basophils/100 WBC Auto (Bld) Ordered By: Nancy Wilson on 07-12-2023 Basophils/100 WBC (Bld) 1.1 % . [facility] Bilirubin.total [Mass/volume ] in Serum or PlasmaOrdered By: Nancy Wilson on 07-12-2023 Bilirubin [Mass/Vol] 0.4 mg/dL 0.3-1.0 [facility] Calcium [Mass/volume] in Ser um or PlasmaOrdered By: Nancy Wilson on 07-12-2023 Calcium [Mass/Vol] 8.5 mg/dL 8.6-10.3 [facility] Carbon dioxide, total [Moles /volume] in Serum or PlasmaOrdered By: Nancy Wilson on 07-12-2023 CO2 [Moles/Vol] 24.5 mmol/L 21.0-31.0 [facility] Chloride [Moles/volume] in S ilia or PlasmaOrdered By: Nancy Wilson on 07-12-2023 Chloride [Moles/Vol] 102 mmol/L 98-107 [facility] Complete Blood Count Auto Di ffon 07-12-2023 Basophils (Bld) [#/Vol] 0.1 10*3/uL Normal 0.0-0.2 [facility] Comment on above: Result Comment: PERF ORMED BY: [facility] [address] [place] [id number] PATHOLOGIST SENIOR GAMEMASTER CLIFFORD LOBATO M.D. Performed By: #### P TT, CBC, PT, BNP, CMP, HS TROP, CK #### [address] Basophils/100 WBC (Bld) 1.1 % Normal . [facility] Comment on above: Performed By: #### P TT, CBC, PT, BNP, CMP, HS TROP, CK #### [address] Eosinophils (Bld) [#/Vol] 0.3 10*3/uL Normal 0.0-0.45 [facility] Comment on above: Performed By: #### P TT, CBC, PT, BNP, CMP, HS TROP, CK #### [address] Eosinophils/100 WBC (Bld) 3.3 % Normal . [facility] Comment on above: Performed By: #### P TT, CBC, PT, BNP, CMP, HS TROP, CK #### [address] Erythrocyte distribution width (RBC) [Ratio] 17.1 % High 12.0-14.8 [facility] Comment on above: Performed By: #### P TT, CBC, PT, BNP, CMP, HS TROP, CK #### [address] Hematocrit (Bld) [Volume fraction] 32.7 % Low 38.8-50.0 [facility] Comment on above: Performed By: #### P TT, CBC, PT, BNP, CMP, HS TROP, CK #### [address] Hemoglobin (Bld) [Mass/Vol] 10.6 g/dL Low 13.0-17.0 [facility] Comment on above: Performed By: #### P TT, CBC, PT, BNP, CMP, HS TROP, CK #### [place] [address] [place] Lymphocytes (Bld) [#/Vol] 1.9 10*3/uL Normal 1.00-4.8 [facility] Comment on above: Performed By: #### P TT, CBC, PT, BNP, CMP, HS TROP, CK #### [address] Lymphocytes/100 WBC (Bld) 20.0 % Normal . [facility] Comment on above: Performed By: #### P TT, CBC, PT, BNP, CMP, HS TROP, CK #### [address] MCH (RBC) [Entitic mass] 22.8 pg Low 27.5-35.2 [facility] Comment on above: Performed By: #### P TT, CBC, PT, BNP, CMP, HS TROP, CK #### [address] MCV (RBC) [Entitic vol] 70.6 fL Low 83.5-101 [facility] Comment on above: Performed By: #### P TT, CBC, PT, BNP, CMP, HS TROP, CK #### [address] Mean Corpuscular HGB Conc 32.4 g/dL Low 32.5-35.6 [facility] Comment on above: Performed By: #### P TT, CBC, PT, BNP, CMP, HS TROP, CK #### [address] Monocytes (Bld) [#/Vol] 1.0 10*3/uL High 0.0-0.8 [facility] Comment on above: Performed By: #### P TT, CBC, PT, BNP, CMP, HS TROP, CK #### [address] Monocytes/100 WBC (Bld) 18.12 % Normal 0.00-20.00 [facility] Comment on above: Performed By: #### P TT, CBC, PT, BNP, CMP, HS TROP, CK #### [address] Monocytes/100 WBC (Bld) 10.2 % Normal . [facility] Comment on above: Performed By: #### P TT, CBC, PT, BNP, CMP, HS TROP, CK #### [address] Neutrophils (Bld) [#/Vol] 6.2 10*3/uL Normal 1.8-7.7 [facility] Comment on above: Performed By: #### P TT, CBC, PT, BNP, CMP, HS TROP, CK #### [address] Neutrophils/100 WBC (Bld) 65.4 % Normal . [facility] Comment on above: Performed By: #### P TT, CBC, PT, BNP, CMP, HS TROP, CK #### [address] NRBC% 0.1 /100{WBC} Normal 0-0.5 [facility] Comment on above: Performed By: #### P TT, CBC, PT, BNP, CMP, HS TROP, CK #### [address] Platelet mean volume (Bld) [Entitic vol] 9.1 fL Normal 6.6-10.1 [facility] Comment on above: Performed By: #### P TT, CBC, PT, BNP, CMP, HS TROP, CK #### [place] [address] [place] Platelets (Bld) [#/Vol] 233 10*3/uL Normal 150-450 [facility] Comment on above: Performed By: #### P TT, CBC, PT, BNP, CMP, HS TROP, CK #### [place] [address] [place] RBC (Bld) [#/Vol] 4.63 10*6/uL Normal 3.90-5.[address] [facility] Comment on above: Performed By: #### P TT, CBC, PT, BNP, CMP, HS TROP, CK #### [address] WBC (Bld) [#/Vol] 9.5 10*3/uL Normal 4.1-10.5 [facility] Comment on above: Performed By: #### P TT, CBC, PT, BNP, CMP, HS TROP, CK #### [address] Comprehensive Metabolic Pane guy 07-12-2023 Albumin [Mass/Vol] 3.9 g/dL Normal 3.5-5.7 [facility] Comment on above: Performed By: #### P TT, CBC, PT, BNP, CMP, HS TROP, CK #### [address] Albumin/Globulin [Mass ratio] 1.3 {ratio} Normal [facility] Comment on above: Performed By: #### P TT, CBC, PT, BNP, CMP, HS TROP, CK #### [address] ALP [Catalytic activity/Vol] 106 U/L High 34-104 [facility] Comment on above: Performed By: #### P TT, CBC, PT, BNP, CMP, HS TROP, CK #### [address] ALT [Catalytic activity/Vol] 9 U/L Normal 7-52 [facility] Comment on above: Performed By: #### P TT, CBC, PT, BNP, CMP, HS TROP, CK #### [address] Anion gap [Moles/Vol] 13.4 mmol/L Normal 6.0-15.0 [facility] Comment on above: Performed By: #### P TT, CBC, PT, BNP, CMP, HS TROP, CK #### [address] AST [Catalytic activity/Vol] 8 U/L Low 13-39 [facility] Comment on above: Performed By: #### P TT, CBC, PT, BNP, CMP, HS TROP, CK #### [facility] [address] Bilirubin [Mass/Vol] 0.4 mg/dL Normal 0.3-1.0 [facility] Comment on above: Performed By: #### P TT, CBC, PT, BNP, CMP, HS TROP, CK #### [address] Calcium [Mass/Vol] 8.5 mg/dL Low 8.6-10.3 [facility] Comment on above: Performed By: #### P TT, CBC, PT, BNP, CMP, HS TROP, CK #### [address] Chloride [Moles/Vol] 102 mmol/L Normal 98-107 [facility] Comment on above: Performed By: #### P TT, CBC, PT, BNP, CMP, HS TROP, CK #### [address] CO2 [Moles/Vol] 24.5 mmol/L Normal 21.0-31.0 The [facility] Comment on above: Performed By: #### P TT, CBC, PT, BNP, CMP, HS TROP, CK #### [address] Creatinine [Mass/Vol] 1.82 mg/dL High 0.70-1.30 [facility] Comment on above: Performed By: #### P TT, CBC, PT, BNP, CMP, HS TROP, CK #### [address] Creatinine Clr Calc Pharmacy 54.64 Normal [facility] Comment on above: Result Comment: PERF ORMED BY: [place] [address] PATHOLOGIST SENIOR GAMEMASTER CLIFFORD LOBATO M.D. Performed By: #### P TT, CBC, PT, BNP, CMP, HS TROP, CK #### [address] GFR/1.73 sq M.predicted MDRD (S/P/Bld) [Vol rate/Area] 42.789 mL/min/{1.73_m2} Normal [facility] Comment on above: Performed By: #### P TT, CBC, PT, BNP, CMP, HS TROP, CK #### [facility] [address] Globulin (S) [Mass/Vol] 3.1 g/dL Normal [facility] Comment on above: Performed By: #### P TT, CBC, PT, BNP, CMP, HS TROP, CK #### [address] Glucose [Mass/Vol] 302 mg/dL High 70-100 [facility] Comment on above: Result Comment: [facility] Glucose Reference Range is dependent on time and content of last meal. Glucose of more than 200 mg/dL in a nonstressed, ambulatory subject supports the diagnosis of Diabetes Mellitus. ADA recommended reference range Performed By: #### P TT, CBC, PT, BNP, CMP, HS TROP, CK #### [address] Potassium [Moles/Vol] 3.9 mmol/L Normal 3.5-5.1 [facility] Comment on above: Performed By: #### P TT, CBC, PT, BNP, CMP, HS TROP, CK #### [address] Protein [Mass/Vol] 7.0 g/dL Normal 6.4-8.9 [facility] Comment on above: Performed By: #### P TT, CBC, PT, BNP, CMP, HS TROP, CK #### [facility] [address] [place] [address] [place] Sodium [Moles/Vol] 136 mmol/L Normal 136-145 [facility] Comment on above: Performed By: #### P TT, CBC, PT, BNP, CMP, HS TROP, CK #### [address] Urea nitrogen [Mass/Vol] 16 mg/dL Normal 7-25 [facility] Comment on above: Performed By: #### P TT, CBC, PT, BNP, CMP, HS TROP, CK #### [facility] [address] [place] [id number] [place] Creatine Kinaseon 07-12-2023 CK [Catalytic activity/Vol] 55 U/L Normal [facility] Comment on above: Performed By: #### P TT, CBC, PT, BNP, CMP, HS TROP, CK #### [facility] [address] Creatine kinase [Enzymatic a ctivity/volume] in Serum or PlasmaOrdered By: Nancy Wilson on 07-12-2023 CK [Catalytic activity/Vol] 55 U/L [facility] Creatinine [Mass/volume] in Serum or PlasmaOrdered By: Nancy Wilson on 07-12-2023 Creatinine [Mass/Vol] 1.82 mg/dL 0.70-1.30 [facility] ECG 12 lead ECGon 07-12-2023 ECG 12 lead ECG [facility] Main [place] [address] [place] [address] Electrocardiograph Report Signed Patient: Solomon Feldman SR MR#: [id number] : 1965 Acct:[id number] Age/Sex: 57 / M ADM Date: 07/12/23 Loc: ER Room: Type: [facility] ER Attending Dr: Ordering Provider: [...] Nancy Wilson MD 01/26 0135 Normal [facility] Eosinophils Auto (Bld) [#/Vo l]Ordered By: Nancy Wilson on 07-12-2023 Eosinophils (Bld) [#/Vol] 0.3 10*3/uL 0.0-0.45 [facility] Eosinophils/100 WBC Auto (Bl d)Ordered By: Nancy Wilson on 07-12-2023 Eosinophils/100 WBC (Bld) 3.3 % . [facility] Erythrocyte distribution wid th Auto (RBC) [Ratio]Ordered By: Nancy Wilson on 07-12-2023 Erythrocyte distribution width (RBC) [Ratio] 17.1 % 12.0-14.8 [facility] Globulin Calc (S) [Mass/Vol] Ordered By: Nancy Wilson on 07-12-2023 Globulin (S) [Mass/Vol] 3.1 g/dL [facility] Glucose [Mass/volume] in Ser um or PlasmaOrdered By: Nancy Wilson on 07-12-2023 Glucose [Mass/Vol] 302 mg/dL 70-100 [facility] Comment on above: ADA recommended refe rence rangeRandom Glucose Reference Range is dependent on time and content of last meal. Glucose of more than 200 mg/dL in a nonstressed, ambulatory subject supports the diagnosis of Diabetes Mellitus. Hematocrit Auto (Bld) [Volum e fraction]Ordered By: Nancy Wilson on 07-12-2023 Hematocrit (Bld) [Volume fraction] 32.7 % 38.8-50.0 [facility] Hemoglobin [Mass/volume] in BloodOrdered By: Nancy Wilson on 07-12-2023 Hemoglobin (Bld) [Mass/Vol] 10.6 g/dL 13.0-17.0 [facility] INR in Platelet poor plasma by Coagulation assayOrdered By: Nancy Wilson on 07-12-2023 INR Coag (PPP) [Relative time] 1.1 {INR} [facility] Comment on above: INR Therapeutic Rang e [...] RBC Auto (Bld) [#/Vol] 9.5 10*3/uL 4.1-10.5 [facility] Lymphocytes Auto (Bld) [#/Vo l]Ordered By: Nancy Wilson on 07-12-2023 Lymphocytes (Bld) [#/Vol] 1.9 10*3/uL 1.00-4.8 [facility] Lymphocytes/100 WBC Auto (Bl d)Ordered By: Nancy Wilson on 07-12-2023 Lymphocytes/100 WBC (Bld) 20.0 % . [facility] MCH Auto (RBC) [Entitic mass ]Ordered By: Nancy Wilson on 07-12-2023 MCH (RBC) [Entitic mass] 22.8 pg 27.5-35.2 [facility] MCHC Auto (RBC) [Mass/Vol]Or dered By: Nancy Wilson on 07-12-2023 MCHC (RBC) [Mass/Vol] 32.4 g/dL 32.5-35.6 [facility] MCV Auto (RBC) [Entitic vol] Ordered By: Nancy Wilson on 07-12-2023 MCV (RBC) [Entitic vol] 70.6 fL 83.5-101 [facility] Monocyte distribution width [Entitic volume] in Blood by AutomatedOrdered By: Nancy Wilson on 07-12-2023 Monocyte distribution width Auto (Bld) [Entitic vol] 18.12 % 0.00-20.00 [facility] Monocytes Auto (Bld) [#/Vol] Ordered By: Nancy Wilson on 07-12-2023 Monocytes (Bld) [#/Vol] 1.0 10*3/uL 0.0-0.8 [facility] Monocytes/100 WBC Auto (Bld) Ordered By: Nancy Wilson on 07-12-2023 Monocytes/100 WBC (Bld) 10.2 % . [facility] Natriuretic peptide B [Mass/ Vol]Ordered By: Nancy Wilson on 07-12-2023 Natriuretic peptide B (Bld) [Mass/Vol] 34.0 pg/mL 5-100 [facility] Neutrophils Auto (Bld) [#/Vo l]Ordered By: Nancy Wilson on 07-12-2023 Neutrophils (Bld) [#/Vol] 6.2 10*3/uL 1.8-7.7 [facility] Neutrophils/100 WBC Auto (Bl d)Ordered By: Nancy Wilson on 07-12-2023 Neutrophils/100 WBC (Bld) 65.4 % . [facility] No Panel InformationOrdered By: Nancy Wilson on 07-12-2023 Estimated GFR (CKD-EPI) 42.789 mL/Min [facility] Creatinine Clearance (Chem 54.64 [facility] Nucleated erythrocytes [Pres ence] in Blood by Automated countOrdered By: Nancy Wilson on 07-12-2023 Nucleated RBC Auto Ql (Bld) 0.1 /100{WBC} 0-0.5 [facility] Partial Thromboplastin Timeo n 07-12-2023 aPTT Coag (Bld) [Time] 29.4 s Normal 25.1-36.5 [facility] Comment on above: Result Comment: A he matocrit value greater than 55% may lead to inaccurate results in coagulation testing. Patients having hematocrit values >55% require a special collection tube for coagulation studies. Please contact the laboratory at [phone] for redraw instructions. PERFORMED BY: [facility] [address] [place] [address] PATHOLOGIST SENIOR GAMEMASTER CLIFFORD LOBATO M.D. Performed By: #### P TT, CBC, PT, BNP, CMP, HS TROP, CK ####[facility] [address] [place] [address] [facility] Platelet mean volume Auto (B ld) [Entitic vol]Ordered By: Nancy Wilson on 07-12-2023 Platelet mean volume (Bld) [Entitic vol] 9.1 fL 6.6-10.1 [facility] Platelets Auto (Bld) [#/Vol] Ordered By: Nancy Wilson on 07-12-2023 Platelets (Bld) [#/Vol] 233 10*3/uL 150-450 [facility] Potassium [Moles/volume] in Serum or PlasmaOrdered By: Nancy Wilson on 07-12-2023 Potassium [Moles/Vol] 3.9 mmol/L 3.5-5.1 [facility] Protein [Mass/volume] in Ser um or PlasmaOrdered By: Nancy Wilson on 07-12-2023 Protein [Mass/Vol] 7.0 g/dL 6.4-8.9 [facility] Prothrombin Time INRon 07-12 INR Coag (PPP) [Relative time] 1.1 {INR} Normal [facility] Comment on above: Result Comment: [...] CMP, HS TROP, CK #### [facility] [address] PT Coag (PPP) [Time] 12.1 s Normal 9.0-12.9 [facility] Comment on above: Result Comment: A he matocrit value greater than 55% may lead to inaccurate results in coagulation testing. Patients having hematocrit values >55% require a special collection tube for coagulation studies. Please contact the laboratory at [phone] for redraw instructions. Performed By: #### P TT, CBC, PT, BNP, CMP, HS TROP, CK #### [facility] [address] [place] [id number] [facility] Prothrombin time (PT)Ordered By: Nancy Wilson on 07-12-2023 PT Coag (PPP) [Time] 12.1 s 9.0-12.9 [facility] Comment on above: A hematocrit value g reater than 55% may lead to inaccurate results in coagulation testing. Patients having hematocrit values >55% require a special collection tube for coagulation studies. Please contact the laboratory at [phone] for redraw instructions. RBC Auto (Bld) [#/Vol]Ordere d By: Nancy Wilson on 07-12-2023 RBC (Bld) [#/Vol] 4.63 10*6/uL 3.90-5.60 [facility] Serum or plasma albumin/glob ulin mass ratioOrdered By: Nancy Wilson on 07-12-2023 Albumin/Globulin [Mass ratio] 1.3 {ratio} [facility] Serum or plasma anion gap de terminationOrdered By: Nancy Wilson on 07-12-2023 Anion gap [Moles/Vol] 13.4 mmol/L 6.0-15.0 [facility] Sodium [Moles/volume] in Ser um or PlasmaOrdered By: Nancy Wilson on 07-12-2023 Sodium [Moles/Vol] 136 mmol/L 136-145 [facility] Troponin I High Sensitivityo n 07-12-2023 Troponin I High Sensitivity 4.6 pg/mL Normal 0.0-20.0 [facility] Comment on above: Result Comment: PERF ORMED BY: [place] [address] PATHOLOGIST SENIOR GAMEMASTER CLIFFORD LOBATO M.D. Performed By: #### P TT, CBC, PT, BNP, CMP, HS TROP, CK #### [address] Troponin I.cardiac [Mass/vol ume] in Serum or Plasma by Detection limit <= 0.01 ng/Ordered By: Nancy Wilson on 07-12-2023 Troponin I.cardiac DL <= 0.01 ng/mL [Mass/Vol] 4.6 pg/mL 0.0-20.0 [facility] Urea nitrogen [Mass/volume] in Serum or PlasmaOrdered By: Nancy Wilson on 07-12-2023 Urea nitrogen [Mass/Vol] 16 mg/dL 7-25 [facility] WBC Auto (Bld) [#/Vol]Ordere d By: Nancy Wilson on 07-12-2023 WBC (Bld) [#/Vol] 9.5 10*3/uL 4.1-10.5 [facility] XR chest 1V portableon 07-12 XR chest 1V portable [facility] [place] [address] [place] [address] XRay Report Signed Patient: Solomon Feldman SR MR#: [id number] : 1965 Acct:[id number] Age/Sex: 57 / M ADM Date: 07/12/23 [...] Sudeep Lind M.D.07/12/2023 5:08 PM Dictation Location: [place] [address] Transcribed By: [facility] 07/12/23 1708 Dictated By: Sudeep Lind DO 07/12/231706 Signed By: 07/12/238 Normal [facility] Patient Educationon 12-29-20 23 Patient Education Urology Benign Prostatic Hyperplasia [...] Follow these instructions at home: ? Take reci-gxw-rzghahs and prescription medicines only as told by [...] the medicine (more content not included)... Normal [facility] Retail - Clinical Noteon Retail - Clinical Note [id number]#1.00TIFF [facility] Urology Office/Clinic Noteon 06-02-2023 Urology Office/Clinic Note Chief Complaint S/p to Cysto HPI Staff Sp [place] [facility] [place] Has not noticed any difference- [...] Contact Information SOLEDAD HERRERA, Yeyo Blum, URL [address] [place] [address]- Additional Instructions: 1 month w/ cath volumes [...] heart failure) (more content not included)... Normal [facility] Comment on above: Result Comment: Elec tronically Signed By: Yeyo ROWE MD\.br\Date and Time Signed: 06/02/23 12:16 EST\.br\Electronically Co-Signed By: Mattie Foster\.br\Date and Time Co-Signed: 06/02/23 12:04 EST Patient Educationon 05-03-20 Patient Education Normal [facility] Pathology Noteon 05-01-2023 Pathology Note [id number]#1.00TIFF Normal [facility] Lab Reportson 04-14-2023 Lab Reports [id number]#1.00TIFF Normal [facility] Operative Reporton Operative Report [id number]#1.00TIFF Normal [facility] Patient Correspondenceon Patient Correspondence [id number]#1.00TIFF Normal [facility] Lab Reportson 03-31-2023 Lab Reports [id number]#1.00TIFF Normal [facility] RAD - MISCon 03-31-2023 RAD - MISC [id number]#1.00TIFF Normal [facility] Patient Correspondenceon Patient Correspondence [id number]#1.00TIFF Normal [facility] Formson 03-23-2023 Forms [id number]#1.00TIFF [facility] A1C HEMOGLOBINon 03-15-2023 HbA1c (Bld) [Mass fraction] 7.5 % [facility] Other HbA1c (Bld) [Mass fraction]o n 03-15-2023 A1C HEMOGLOBIN [facility] Other Lab Reportson 03-09-2023 Lab Reports [id number]#1.00TIFF [facility] Consultation Noteon 02-27-20 Consultation Note [id number]#1.00CD:12 7 [facility] Consent for Procedure/Surger yon 02-15-2023 Consent for Procedure/Surgery [id number]#1.00CD:12 7 [facility] Office Visit (Cardiology)on 02-15-2023 Follow-up visit [...] in adult [employer] Weight [employer]; Status:Complete; Done: [id number] Patient Instructions Please bring all medicines, vitamins, [...] Sia HERRERA, (more content not included)... Normal [employer] Tobacco Screening.on 023 Fall risk assessment c) Not medically indicated [facility] 250 DO Work Phone: Tobacco use status CP b) No [facility] 250 DO Work Phone: Tobacco Screening. Yes [facility] 250 DO Work Phone: Consent for Procedure/Surger yon 02-14-2023 Consent for Procedure/Surgery [id number]#1.00CD:1 27 [facility] Consent for Procedure/Surgery [id number]#1.00CD:1 27 [facility] Consent for Treatmenton 02-03 Consent for Treatment [id number]#1.00CD:12 7 [facility] IntraOperative Documentson 0 02-14-2023 IntraOperative Documents [id number]#1.00CD:1 27 [facility] IntraOperative Documents [id number]#1.00CD:1 27 [facility] Main OR Intraoperative Recor don 02-14-2023 Main OR Intraoperative Record IntraOp Document Type FTURO Summary Primary Physician: Yeyo ROWE MD Finalized Date/Time: 02/14/23 10:18:58 Pt. Name: MATTEO CHRISTIAN, SOLOMON Aceves/Sex: 1965 Male Med Rec #: [id number] Physician: Yeyo ROWE MD Financial #: [id number] Pt. Type: O Room/Bed: / Admit/Disch: 02/14/23 [...] Nguyen CST Role Performed Surgeon - Primary Steward/Stewardess Lounge - Primary Scrub - Primary Time In 02/14/23 09:29:00 02/14/23 09:29:00 02/14/23 09:29:00 Time Out 02/14/23 09:49:00 02/14/23 09:49:00 02/14/23 09:49:00 Procedure CYSTOSCOPY LOCAL(.) CYSTOSCOPY LOCAL(.) CYSTOSCOPY LOCAL(.) Comments Last Modified By: Mauricio STERN, Chandrika Martínez RN, Chandrika Martínez RN, Chandrika Martin 02/14/23 09:45:25 02/14/23 09:45:25 02/14/23 09:45:25 Surgical [...] 09:45 Chandrika Martínez RN 02/14/23 10:18 Normal [facility] Main OR Preoperative Recordo n 02-14-2023 Main OR Preoperative Record Holding Area Document Type FTURO Summary Primary Physician: Yeyo ROWE MD Finalized Date/Time: 02/14/23 09:01:37 Pt. Name: SOLOMON FELDMAN SR/Sex: 1965 Male Med Rec #: [id number] Physician: Yeyo ROWE MD Financial #: [id number] Pt. Type: O Room/Bed: / Admit/Disch: 02/14/23 [...] By: Sheri Bolivar RN 02/14/23 09:01 Normal [facility] Operative Reporton 3 Operative Report Patient: Joe [...] with antibiotic coverage, Follow up arranged. Normal [facility] Comment on above: Result Comment: [...] including vitamins, herbs, eye drops, creams, and ebjb-gsb-tcmepfn medicines. ? Any problems you or family [...] tells you to take them. ? Taking tdqg-lao-abmhyhv medicines, vitamins, herbs, and supplements. Surgery safety [...] health care (more content not included)... Normal [facility] Progress Note-Physicianon Progress Note-Physician Patient: [...] mg = 1 tab(s), PRN, SubLingual, q5min Neffs 325 mg-5 mg oral tablet 1 tab(s), [...] 278.00 / Possible Fibromyalgia / SNOMED CT [id number] 927887V98R4 / Confirmed Restless leg / ICD-9-CM 333.94 / Confirmed Arthritis / SNOMED CT [id number]-E [id number] / Confirmed Hyperlipidemia / SNOMED CT 55628635 / Confirmed Smoker / SNOMED CT [id number]-Q SE5C2827HW6 / Confirmed Added secondary to documentation in Social History. Asthma / SNOMED CT 295300030 / Confirmed COPD type A / SNOMED CT 128237157 / Confirmed Head ache / SNOMED CT 88000133 / Confirmed Heart attack / SNOMED CT 52463178 / Confirmed Heart disease / SNOMED CT 72833800 / Confirmed Heart murmur / SNOMED CT 548306116 / Confirmed Urinary retention / SNOMED CT 427187578 / Confirmed BPH with obstruction/lower urinary tract symptoms / SNOMED CT 5717558262 / Confirmed Orchitis / SNOMED CT 365234806 / Confirmed Gross hematuria / SNOMED CT 357807076 / Confirmed Tobacco use / SNOMED CT [id number]-L2A5-4 31949MF4MX3 / Confirmed Added secondary to social history documentation. Histories Past Medical History: Active Fibromyalgia ([id number]- 3925539Q33U8) Restless leg (333.94) Arthritis (23JW9872-9U8Y-10G5-6K2R- WOE3D636J772) Hyperlipidemia (36318088) Resolved HTN [Hypertension] (401.9): Resolved. NIDDM (250.00): Resolved. GERD [Gastroesophageal reflux disease] (530.81): Resolved. CHF (congestive heart failure) ([id number]-3O9H-2Y10- W669758Q6K74): Resolved. IA (myocardial infarction) (947Y5RVS-05E8-0A2Q-4L24- 53415Y45K1SV): Resolved. Family History: Diabetes mellitus Mother Heart disease Mother Alcoholism Brother Drug addiction Brother Acute myocardial infarction Mother Grandparent Procedure history: Bilateral Eye Surgery. Comments: 07/10/2014 17:25 ALESHA - [facility] STERN, Kati bilateral cataracts with iol implants Bilateral Carpal Tunnel Surgery. cardiac stents. Appendectomy (776860534). Colonoscopy (831070389). Cataract extraction and insertion of intraocular lens (9372276454). Procedure on back (778584728). Social History Social & Psychosocial Habits Alcohol [...] procedure such (more content not included)... Normal [facility] Comment on above: Result Comment: Elec tronically Signed By: SOLEDAD HERRERA, Yeyo Nolasco.livia\Date and Time Signed: 02/14/23 09:58 EDT Consent for Treatmenton Consent for Treatment [id number]#1.00CD:12 7 Normal [facility] Ambulatory Visit Summaryon 0 01-30-2023 Ambulatory Visit Summary SOLOMON FELDMAN SR :1965 Visit Date:01/30/2023 Ambulatory Visit Instructions Your Diagnosis Urinary retention Gross hematuria BPH with obstruction/lower urinary tract symptoms Orchitis Your Care Team Attending Physician - Yeyo ROWE MD Primary Care Physician - JENARO LYNCH DO This Is Your Medications List Contact prescribing physician if questions or concerns acetaminophen-hydrocodone (Neffs 325 mg-5 mg oral tablet) albuterol (ProAir [...] Follow Up with SOLEDAD HERRERA, Yeyo Blum, URL When: Comments: sched cysto/uros Where: [facility] [address] , [place] [address] [phone] Medications What How Much When Instructions Unchanged acetaminophen-hydrocodone (Neffs 325 mg-5 mg oral tablet) 1 Tablets [...] or vivian (more content not included)... Normal [place] [facility] Patient Educationon 01-31-20 Patient Education Urology [...] including vitamins, herbs, eye drops, creams, and tqcy-lfk-otmkrth medicines. ? Whether you are or may [...] results be (more content not included)... Normal [facility] Urology Office/Clinic Noteon 01-30-2023 Urology [...] [facility] [address], [place] [address] [phone] Additional Instructions: sched cysto/uros Patient Education Urodynamic [...] failure) GERD [Gastroesophageal reflux disease] HTN [Hypertension] IA (myocardial infarction) NIDDM Procedure/Surgical History Appendectomy, Bilateral [...] mg, BID (more content not included)... Normal [facility] Comment on above: Result Comment: Elec tronically Signed By: Saima Sutton\.livia\Date and Time Signed: 01/30/23 11:38 EDT [facility] CARDIAC STRESS/REST INJE CTIONon 01-25-2023 [facility] CARDIAC STRESS/REST INJECTION Patient Name: SOLOMON FELDMAN STUDY: MYOCARDIAL PERFUSION STRESS TEST WITH EXERCISE CONVERTED TO LEXISCAN Performing facility: [facility], [address] [place] [address], [address], [place], [place] [address] Provider: Dolores Feldman RN, [employer] PCP: Dr. Jenaro Lynch Supervising provider: Pascale Arnold MD, [facility] INDICATION: Anginal equivalent CAD; HISTORY: Gender: M; Age: 57 y/o ; Height: 182.88 cm; Weight: 97.0009500 kg. High Cholesterol; CAD; Diabetes; HTN; Palpitations; Chest Pain; Quit smoking unknown years ago. COMPARISON: Previous nuclear testing completed at [facility]. ACCESSION NUMBER(S): [id number]; [id number]; [id number] ORDERING CLINICIAN: DOLORES FELDMAN TECHNIQUE: ONE DAY [...] Electronically signed by: PASCALE ARNOLD MD Normal [facility] No Panel Informationon 01-25 Normal [facility] [facility] [address] DO Work Phone: [...] contact the office if new symptoms arise. 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 Normal [employer] Tobacco Screening.on 023 Adult depression screening assessment No [facility] 600 DO Work Phone: Tobacco use status [facility] b) No [facility] 600 DO Work Phone: Ambulatory Visit Summaryon 0 12-28-2022 Ambulatory Visit Summary SOLOMON FELDMAN SR :1965 Visit Date:12/28/2022 Ambulatory Visit Instructions Your Care Team Attending Physician - Yeyo ROWE MD Primary Care Physician - JENARO LYNCH DO This Is Your Medications List acetaminophen-hydrocodone (Neffs 325 mg-5 mg oral tablet) albuterol (ProAir [...] HERRERA, Yeyo Blum Where: [facility] Alanine aminotransferase [En zymatic activity/volume] in Serum or PlasmaOrdered By: Jenaro Lynch on 09-27-2022 ALT [Catalytic activity/Vol] 15 U/L 7-52 [facility] Albumin [Mass/volume] in Ser um or Plasma by Bromocresol green (BCG) dye binding methoOrdered By: Jenaro Lynch on 09-27-2022 Albumin BCG dye [Mass/Vol] 4.1 g/dL 3.5-5.7 [facility] Alkaline phosphatase [Enzyma tic activity/volume] in Serum or PlasmaOrdered By: Jenaro Lynch on 09-27-2022 ALP [Catalytic activity/Vol] 116 U/L 34-104 [facility] Aspartate aminotransferase [ Enzymatic activity/volume] in Serum or PlasmaOrdered By: Jenaro Lynch on 09-27-2022 AST [Catalytic activity/Vol] 15 U/L 13-39 [facility] Basophils Auto (Bld) [#/Vol] Ordered By: Jenaro Lynch on 09-27-2022 Basophils (Bld) [#/Vol] 0.1 10*3/uL 0.0-0.2 [facility] Basophils/100 WBC Auto (Bld) Ordered By: Jenaro Lynch on 09-27-2022 Basophils/100 WBC (Bld) 1.1 % . [facility] Bilirubin.total [Mass/volume ] in Serum or PlasmaOrdered By: Jenaro Lynch on 09-27-2022 Bilirubin [Mass/Vol] 0.4 mg/dL 0.3-1.0 [facility] Calcium [Mass/volume] in Ser um or PlasmaOrdered By: Jenaro Lynch on 09-27-2022 Calcium [Mass/Vol] 8.8 mg/dL 8.6-10.3 [facility] Carbon dioxide, total [Moles /volume] in Serum or PlasmaOrdered By: Jenaro Lynch on 09-27-2022 CO2 [Moles/Vol] 27.2 mmol/L 21.0-31.0 [facility] Chloride [Moles/volume] in S ilia or PlasmaOrdered By: Jenaro Lynch on 09-27-2022 Chloride [Moles/Vol] 99 mmol/L 98-107 [facility] Cholesterol [Mass/volume] in Serum or PlasmaOrdered By: Jenaro Lynch on 09-27-2022 Cholesterol [Mass/Vol] 104 mg/dL 140-200 [facility] Comment on above: Chol less than 200 m g/dl low riskChol 201-239 mg/dl borderline riskChol 240 mg/dl and greater high risk Cholesterol in LDL Calc [Mas s/Vol]Ordered By: Jenaro Lynch on 09-27-2022 Cholesterol in LDL [Mass/Vol] TNP [facility] Comment on above: Test not performed Cholesterol in LDL [Mass/vol ume] in Serum or PlasmaOrdered By: Jenaro Lynch on 09-27-2022 Cholesterol in LDL [Mass/Vol] 38 mg/dL 0-100 [facility] Comment on above: LDL ATP III CLASSIFI CATIONLDL less than 100 mg/dL OptimalLDL 100-129 mg/dL Near or above optimalLDL 130-159 mg/dL Borderline highLDL 160-189 mg/dL HighLDL greater than 189 mg/dL Very high Cholesterol in VLDL Calc [Ma ss/Vol]Ordered By: Jenaro Lynch on 09-27-2022 Cholesterol in VLDL [Mass/Vol] 99 mg/dL [facility] Creatinine [Mass/volume] in Serum or PlasmaOrdered By: Jenaro Lynch on 09-27-2022 Creatinine [Mass/Vol] 1.84 mg/dL 0.70-1.30 [facility] Eosinophils Auto (Bld) [#/Vo l]Ordered By: Jenaro Lynch on 09-27-2022 Eosinophils (Bld) [#/Vol] 0.7 10*3/uL 0.0-0.45 [facility] Eosinophils/100 WBC Auto (Bl d)Ordered By: Jenaro Lynch on 09-27-2022 Eosinophils/100 WBC (Bld) 5.9 % . [facility] Erythrocyte distribution wid th Auto (RBC) [Ratio]Ordered By: Jenaro Lynch on 09-27-2022 Erythrocyte distribution width (RBC) [Ratio] 16.0 % 12.0-14.8 [facility] Globulin Calc (S) [Mass/Vol] Ordered By: Jenaro Lynch on 09-27-2022 Globulin (S) [Mass/Vol] 2.9 g/dL [facility] Glucose [Mass/volume] in Ser um or PlasmaOrdered By: Jenaro Lynch on 09-27-2022 Glucose [Mass/Vol] 225 mg/dL 70-100 [facility] Comment on above: ADA recommended refe rence rangeRandom Glucose Reference Range is dependent on time and content of last meal. Glucose of more than 200 mg/dL in a nonstressed, ambulatory subject supports the diagnosis of Diabetes Mellitus. Hematocrit Auto (Bld) [Volum e fraction]Ordered By: Jenaro Lynch on 09-27-2022 Hematocrit (Bld) [Volume fraction] 41.0 % 38.8-50.0 [facility] Hemoglobin [Mass/volume] in BloodOrdered By: Jenaro Lynch on 09-27-2022 Hemoglobin (Bld) [Mass/Vol] 13.2 g/dL 13.0-17.0 [facility] Leukocytes [#/volume] correc jorge for nucleated erythrocytes in Blood by Automated counOrdered By: Jenaro Lynch on 09-27-2022 WBC corrected for nucl RBC Auto (Bld) [#/Vol] 12.4 10*3/uL 4.1-10.5 [facility] Lymphocytes Auto (Bld) [#/Vo l]Ordered By: Jenaro Lynch on 09-27-2022 Lymphocytes (Bld) [#/Vol] 2.3 10*3/uL 1.00-4.8 [facility] Lymphocytes/100 WBC Auto (Bl d)Ordered By: Jenaro Lynch on 09-27-2022 Lymphocytes/100 WBC (Bld) 18.2 % . [facility] MCH Auto (RBC) [Entitic mass ]Ordered By: Jenaro Lynch on 09-27-2022 MCH (RBC) [Entitic mass] 23.9 pg 27.5-35.2 [facility] MCHC Auto (RBC) [Mass/Vol]Or dered By: Jenaro Lynch on 09-27-2022 MCHC (RBC) [Mass/Vol] 32.2 g/dL 32.5-35.6 [facility] MCV Auto (RBC) [Entitic vol] Ordered By: Jenaro Lynch on 09-27-2022 MCV (RBC) [Entitic vol] 74.3 fL 83.5-101 [facility] Monocytes Auto (Bld) [#/Vol] Ordered By: Jenaro Lynch on 09-27-2022 Monocytes (Bld) [#/Vol] 1.0 10*3/uL 0.0-0.8 [facility] Monocytes/100 WBC Auto (Bld) Ordered By: Jenaro Lynch on 09-27-2022 Monocytes/100 WBC (Bld) 7.9 % . [facility] Neutrophils Auto (Bld) [#/Vo l]Ordered By: Jenaro Lynch on 09-27-2022 Neutrophils (Bld) [#/Vol] 8.3 10*3/uL 1.8-7.7 [facility] Neutrophils/100 WBC Auto (Bl d)Ordered By: Jenaro Lynch on 09-27-2022 Neutrophils/100 WBC (Bld) 66.9 % . [facility] No Panel InformationOrdered By: Jenaro Lynch on 09-27-2022 Estimated GFR (CKD-EPI) 42.232 mL/Min [facility] Creatinine Clearance (Chem N/A [facility] Nucleated erythrocytes [Pres ence] in Blood by Automated countOrdered By: Jenaro Lynch on 09-27-2022 Nucleated RBC Auto Ql (Bld) 0.1 /100{WBC} 0-0.5 [facility] Platelet mean volume Auto (B ld) [Entitic vol]Ordered By: Jenaro Lynch on 09-27-2022 Platelet mean volume (Bld) [Entitic vol] 9.1 fL 6.6-10.1 [facility] Platelets Auto (Bld) [#/Vol] Ordered By: Jenaro Lynch on 09-27-2022 Platelets (Bld) [#/Vol] 209 10*3/uL 150-450 [facility] Potassium [Moles/volume] in Serum or PlasmaOrdered By: Jenaro Lynch on 09-27-2022 Potassium [Moles/Vol] 4.3 mmol/L 3.5-5.1 [facility] Protein [Mass/volume] in Ser um or PlasmaOrdered By: Jenaro Lynch on 09-27-2022 Protein [Mass/Vol] 7.0 g/dL 6.4-8.9 [facility] RBC Auto (Bld) [#/Vol]Ordere d By: Jenaro Lynch on 09-27-2022 RBC (Bld) [#/Vol] 5.52 10*6/uL 3.90-5.60 [facility] Serum or plasma albumin/glob ulin mass ratioOrdered By: Jenaro Lynch on 09-27-2022 Albumin/Globulin [Mass ratio] 1.4 {ratio} [facility] Serum or plasma anion gap de terminationOrdered By: Jenaro Lynch on 09-27-2022 Anion gap [Moles/Vol] 14.1 mmol/L 6.0-15.0 [facility] Serum or plasma high density lipoprotein (HDL) cholesterol measurementOrdered By: Jenaro Lynch on 09-27-2022 Cholesterol in HDL [Mass/Vol] 21 mg/dL 29-71 [facility] Comment on above: HDL CHOL ATP-III CLA SSIFICATION Cardiovascular RiskHDL > or equal to 60 mg/dL LOWHDL < 40 mg/dL HIGH Serum or plasma total choles terol/high density lipoprotein (HDL) cholesterol mass ratOrdered By: Jenaro Lynch on 09-27-2022 Cholesterol.total/Chol esterol in HDL [Mass ratio] 5.0 {ratio} <5.0 [facility] Sodium [Moles/volume] in Ser um or PlasmaOrdered By: Jenaro Lynch on 09-27-2022 Sodium [Moles/Vol] 136 mmol/L 136-145 [facility] Thyrotropin [Units/volume] i n Serum or PlasmaOrdered By: Jenaro Lynch on 09-27-2022 TSH Qn 3.62 m[IU]/L 0.45-5.33 [facility] Triglyceride [Mass/volume] i n Serum or PlasmaOrdered By: Jenaro Lynch on 09-27-2022 Triglyceride [Mass/Vol] 497 mg/dL 0-149 [facility] Comment on above: If the triglyceride result [...] 09-27-2022 Urea nitrogen [Mass/Vol] 15 mg/dL 7-25 [facility] WBC Auto (Bld) [#/Vol]Ordere d By: Jenaro Lynch on 09-27-2022 WBC (Bld) [#/Vol] 12.4 10*3/uL 4.1-10.5 [facility] A1C HEMOGLOBINon 02-15-2022 HbA1c (Bld) [Mass fraction] % [facility] Other HbA1c (Bld) [Mass fraction]o n 02-15-2022 A1C HEMOGLOBIN [facility] Other Tobacco Screening.on 022 Adult depression screening assessment No [facility] 250 DO Work Phone: Tobacco use status [facility] b) No [facility] 250 DO Work Phone: A1C HEMOGLOBINon 07-27-2021 HbA1c (Bld) [Mass fraction] 11.8 % [facility] Other HbA1c (Bld) [Mass fraction]o n 07-27-2021 A1C HEMOGLOBIN [facility] Other Vital Signs Date Time Vital Sign Value Performing Clinician Facility 10-24-2023 10:56-0400 Body height 182.9 cm Raulito Inman MD Work Phone: [facility] 10-24-2023 10:56-0400 Diastolic blood pressure 86 mm[Hg] Raulito Inman MD Work Phone: [facility] 10-24-2023 10:56-0400 Heart rate 104 /min Raulito Inman MD Work Phone: [facility] 10-24-2023 10:56-0400 Systolic blood pressure 134 mm[Hg] Raulito Inman MD Work Phone: [facility] 10-23-2023 09:37-0400 Blood Pressure Location Padmini Montes [facility] 10-23-2023 09:37-0400 Diastolic blood pressure 82 mm[Hg] Padmini Mont[facility] 10-23-2023 09:37-0400 Heart rate 107 /min Padmini Montes [facility] 10-23-2023 09:37-0400 SaO2% (BldA) [Mass fraction] 98 % Padmini Montes [facility] 10-23-2023 09:37-0400 Systolic blood pressure 130 mm[Hg] Padmini Montes [facility] 07-31-2023 12:00-0500 Diastolic blood pressure 63 mm[Hg] DO Jenaro Lynch Work Phone: [facility] 07-31-2023 12:00-0500 Heart rate 75 /min DO Jenaro Kuns Work Phone: [facility] 07-31-2023 12:00-0500 Systolic blood pressure 108 mm[Hg] DO Jenaro Kuns Work Phone: [facility] 07-31-2023 08:33-0500 Respiratory rate 18 /min DO Jenaro Kuns Work Phone: [facility] 07-12-2023 18:03-0500 Diastolic blood pressure 73 mm[Hg] DO Jenaor Kuns Work Phone: [facility] 07-12-2023 18:03-0500 Heart rate 76 /min DO Jenaro Kuns Work Phone: [facility] 07-12-2023 18:03-0500 Respiratory rate 20 /min DO Jenaro Kuns Work Phone: [facility] 07-12-2023 18:03-0500 SaO2% (BldA) [Mass fraction] 98 % DO Jenaro Kuns Work Phone: [facility] 07-12-2023 18:03-0500 Systolic blood pressure 125 mm[Hg] DO Jenaro Kuns Work Phone: [facility] 07-12-2023 16:15-0500 Body height 182.88 cm DO Jenaro Kuns Work Phone: [facility] 07-12-2023 16:15-0500 Body temperature 98.9 [degF] DO Jenaro Kuns Work Phone: [facility] 07-12-2023 16:15-0500 Body weight 99.25 kg DO Jenaro Kuns Work Phone: [facility] 06-02-2023 10:56-0500 Blood Pressure Location Yeyo ROWE [facility] 06-02-2023 10:56-0500 Body temperature 96.98 [degF] Yeyo ROWE [facility] 06-02-2023 10:56-0500 Diastolic blood pressure 84 mm[Hg] Yeyo ROWE [facility] 06-02-2023 10:56-0500 Heart rate 68 /min Yeyo ROWE [facility] 06-02-2023 10:56-0500 Systolic blood pressure 124 mm[Hg] Yeyo ROWE [facility] 04-06-2023 13:15-0400 Body height 180.34 cm Jenaro Lynch Other [facility] Other 04-06-2023 13:15-0400 Body mass index (BMI) [Ratio] 29.43 kg/m2 Jenaro Lynch Other [facility] Other 04-06-2023 13:15-0400 Body weight 95.71 kg Jenaro Lynch Other [facility] Other 04-06-2023 13:15-0400 Diastolic blood pressure 70 mm[Hg] Jenaro Lynch Other [facility] Other 04-06-2023 13:15-0400 Respiratory rate 18 /min Jenaro Lynch Other [facility] Other 04-06-2023 13:15-0400 SaO2% (BldA) [Mass fraction] 97 % Jenaro Lynch Other [facility] Other 04-06-2023 13:15-0400 Systolic blood pressure 100 mm[Hg] Jenaro Lynch Other [facility] Other 03-15-2023 08:30-0400 Body height 180.34 cm Jenaro Lynch Other [facility] Other 03-15-2023 08:30-0400 Body mass index (BMI) [Ratio] 29.01 kg/m2 Jenaro Lynch Other [facility] Other 03-15-2023 08:30-0400 Body weight 94.35 kg Jenaro Lynch Other [facility] Other 03-15-2023 08:30-0400 Diastolic blood pressure 62 mm[Hg] Jenaro Lynch Other [facility] Other 03-15-2023 08:30-0400 Respiratory rate 16 /min Jenaro Lynch Other [facility] Other 03-15-2023 08:30-0400 SaO2% (BldA) [Mass fraction] 97 % Jenaro Lynch Other [facility] Other 03-15-2023 08:30-0400 Systolic blood pressure 88 mm[Hg] Jenaro Lynch Other [facility] Other 02-15-2023 10:04-0400 Body height 182.88 cm Jenaro Lynch Work Phone: [facility] 250 DO Work Phone: 02-15-2023 10:04-0400 Body mass index (BMI) [Ratio] 28.62 kg/m2 Jenaro Lynch Work Phone: [facility] 250 DO Work Phone: 02-15-2023 10:04-0400 Body surface area Derived from formula 2.18 m2 Jenaro Lynch Work Phone: [facility] 250 DO Work Phone: 02-15-2023 10:04-0400 Body weight 95.71 kg Jenaro Lynch Work Phone: [facility] 250 DO Work Phone: 02-15-2023 10:04-0400 Diastolic blood pressure 70 mm[Hg] Jenaro Lynch Work Phone: [facility] 250 DO Work Phone: 02-15-2023 10:04-0400 Heart rate 76 /min Jenaro Lynch Work Phone: [facility] 250 DO Work Phone: 02-15-2023 10:04-0400 Systolic blood pressure 102 mm[Hg] Jenaro Lynch Work Phone: [facility] 250 DO Work Phone: 01-30-2023 10:23-0400 Blood Pressure Location Yeyo ROWE [facility] 01-30-2023 10:23-0400 Diastolic blood pressure 74 mm[Hg] Yeyo ROWE [facility] 01-30-2023 10:23-0400 Heart rate 68 /min Yeyo ROWE [facility] 01-30-2023 10:23-0400 Respiratory rate 16 /min Yeyo ROWE [facility] 01-30-2023 10:23-0400 Systolic blood pressure 130 mm[Hg] Yeyo ROWE [facility] 01-11-2023 15:08-0400 Body height 180.34 cm Jenaro Lynch Work Phone: [facility] 600 DO Work Phone: 01-11-2023 15:08-0400 Body mass index (BMI) [Ratio] 30.13 kg/m2 Jenaro Lynch Work Phone: [facility] 600 DO Work Phone: 01-11-2023 15:08-0400 Body surface area Derived from formula 2.18 m2 Jenaro Lynch Work Phone: [facility] 600 DO Work Phone: 01-11-2023 15:08-0400 Body weight 97.98 kg Jenrao Lynch Work Phone: [facility] 600 DO Work Phone: 01-11-2023 15:08-0400 Diastolic blood pressure 86 mm[Hg] Jenaro Lynch Work Phone: [facility] 600 DO Work Phone: 01-11-2023 15:08-0400 Heart rate 74 /min Jenaro Lynch Work Phone: [facility] 600 DO Work Phone: 01-11-2023 15:08-0400 Systolic blood pressure 122 mm[Hg] Jenaro Lynch Work Phone: [facility] 600 DO Work Phone: 12-01-2022 12:45-0400 Body height 180.34 cm Jenaro Lynch Other [facility] Other 12-01-2022 12:45-0400 Body mass index (BMI) [Ratio] 29.73 kg/m2 Jenarogorge Fraustojoe Other [facility] Other 12-01-2022 12:45-0400 Body weight 96.71 kg Jenaro Syed Other [facility] Other 12-01-2022 12:45-0400 Diastolic blood pressure 70 mm[Hg] Jenaro Syed Other [facility] Other 12-01-2022 12:45-0400 Respiratory rate 18 /min Jenaro Lynch Other [facility] Other 12-01-2022 12:45-0400 SaO2% (BldA) [Mass fraction] 94 % Jenaro Fraustojoe Other [facility] Other 12-01-2022 12:45-0400 Systolic blood pressure 122 mm[Hg] Jenarogorge Lynch Other [facility] Other 11-23-2022 11:38-0400 Blood Pressure Location Yeyo ROWE [facility] 11-23-2022 11:38-0400 Diastolic blood pressure 85 mm[Hg] Yeyo ROWE [facility] 11-23-2022 11:38-0400 Heart rate 76 /min Yeyo ROWE [facility] 11-23-2022 11:38-0400 Systolic blood pressure 130 mm[Hg] Yeyo ROWE [facility] 07-04-2022 10:30-0500 Body height 180.34 cm Jenaro Lynch Other [facility] Other 07-04-2022 10:30-0500 Body mass index (BMI) [Ratio] 29.43 kg/m2 Jenaro Lynch Other [facility] Other 07-04-2022 10:30-0500 Body weight 95.71 kg Jenaro Lynch Other [facility] Other 07-04-2022 10:30-0500 Diastolic blood pressure 86 mm[Hg] Jenaro Syed Other [facility] Other 07-04-2022 10:30-0500 Respiratory rate 16 /min Jenaro Fraustojoe Other [facility] Other 07-04-2022 10:30-0500 Systolic blood pressure 146 mm[Hg] Jenaro Syed Other [facility] Other 02-15-2022 13:45-0400 Body height 180.34 cm Jenaro Lynch Other [facility] Other 02-15-2022 13:45-0400 Body mass index (BMI) [Ratio] 30.12 kg/m2 Jenarogorge Fraustojoe Other [facility] Other 02-15-2022 13:45-0400 Body weight 97.98 kg Jenaro Fraustojoe Other [facility] Other 02-15-2022 13:45-0400 Diastolic blood pressure 62 mm[Hg] Jenaro Lynch Other [facility] Other 02-15-2022 13:45-0400 Respiratory rate 16 /min Jenaro Lynch Other [facility] Other 02-15-2022 13:45-0400 SaO2% (BldA) [Mass fraction] 96 % Jenaro Lynch Other [facility] Other 02-15-2022 13:45-0400 Systolic blood pressure 100 mm[Hg] Jenaro Lynch Other [facility] Other 10-26-2021 10:01-0400 Body height 180.34 cm Jenaro Mari Lynch Work Phone: [employer] [facility] [employer] 250 DO Work Phone: 10-26-2021 10:01-0400 Body mass index (BMI) [Ratio] 29.99 kg/m2 Jenaro Lynch Work Phone: [employer] [facility] [employer] 250 DO Work Phone: 10-26-2021 10:01-0400 Body surface area Derived from formula 2.17 m2 Jenaro Lynch Work Phone: [employer] [facility] [employer] 250 DO Work Phone: 10-26-2021 10:01-0400 Body weight 97.52 kg Jenaro Mari Lynch Work Phone: [facility] 250 DO Work Phone: 10-26-2021 10:01-0400 Diastolic blood pressure 70 mm[Hg] Jenaro Mari Lynch Work Phone: [employer] [facility] 250 DO Work Phone: 10-26-2021 10:01-0400 Heart rate 68 /min Jenaro Mari Lynch Work Phone: [facility] [employer] 250 DO Work Phone: 10-26-2021 10:01-0400 Systolic blood pressure 104 mm[Hg] Jenaro Lynch Work Phone: [facility] 250 DO Work Phone: 10-19-2021 12:20-0400 Body height 180.34 cm Azjuan [employer] Other [facility] Other 10-19-2021 12:20-0400 Body mass index (BMI) [Ratio] 30.65 kg/m2 Aziz [employer] Other [facility] Other 10-19-2021 12:20-0400 Body temperature 96.8 [degF] Azjuan [employer] Other [facility] Other 10-19-2021 12:20-0400 Body weight 99.7 kg Aziz [employer] Other [facility] Other 10-19-2021 12:20-0400 Diastolic blood pressure 71 mm[Hg] Aziz [employer] Other [facility] Other 10-19-2021 12:20-0400 Respiratory rate 18 /min Azjuan [employer] Other [facility] Other 10-19-2021 12:20-0400 SaO2% (BldA) [Mass fraction] 98 % Aziz Bakhous Other [facility] Other 10-19-2021 12:20-0400 Systolic blood pressure 111 mm[Hg] Aziz Bakhous Other [facility] Other 07-27-2021 14:00-0500 Body height 180.34 cm Jenaro Fraustos Other [facility] Other 07-27-2021 14:00-0500 Body mass index (BMI) [Ratio] 30.4 kg/m2 Jenaro Syed Other [facility] Other 07-27-2021 14:00-0500 Body weight 98.88 kg Jenaro Syed Other [facility] Other 07-27-2021 14:00-0500 Diastolic blood pressure 76 mm[Hg] Jenaro Lynch Other [facility] Other 07-27-2021 14:00-0500 Respiratory rate 18 /min Jenaro Syed Other [facility] Other 07-27-2021 14:00-0500 SaO2% (BldA) [Mass fraction] 98 % Jenaro Syed Other [facility] Other 07-27-2021 14:00-0500 Systolic blood pressure 112 mm[Hg] Jenaro Syed Other [facility] Other Encounters Encounter Date Encounter Type Care Provider Facility Start: 02-12-2024 ambulatory Yeyo Ley ty:CAL [facility] Start: 11-30-2023 End: 11-30-2023 ambulatory [facility] Start: 11-23-2023 End: 11-23-2023 ambulatory ROSIE Brian [facility] Start: 11-15-2023 End: 11-15-2023 ambulatory MAAME Hooker [facility] Start: 11-14-2023 End: 11-14-2023 Evaluation and management of inpatient [facility] Start: 11-07-2023 End: 11-14-2023 Evaluation and management of inpatient ROSIE Brian [facility] Start: 11-07-2023 End: 11-14-2023 Evaluation and management of inpatient PADMINI MONTES [facility] Start: 10-24-2023 End: 10-24-2023 ambulatory [facility] Start: 10-24-2023 End: 10-24-2023 Encounter for preprocedural cardiovascular examination [facility] Start: 10-24-2023 End: 10-24-2023 Office outpatient visit 25 minutes Raulito Inman MD Work Phone: [facility] Comment on above: History of PTCA; Hyperlipidemia, unspecified hyperlipidemia type; Encounter for pre-operative cardiovascular clearance; Former smoker Start: 10-24-2023 End: 10-24-2023 Patient encounter status Raulito Inman MD Work Phone: [facility] Work Phone: Start: 10-23-2023 End: 10-23-2023 ambulatory XXXX NONE [facility] Start: 10-23-2023 End: 10-23-2023 Patient encounter procedure Padmini Montes [facility] Start: 10-19-2023 End: 10-20-2023 ambulatory Padmini Montes [facility] Start: 10-19-2023 ambulatory Padmini Montes Facili ty[facility] Start: 10-19-2023 End: 10-19-2023 Patient encounter procedure Padmini Montes [facility] Start: 10-18-2023 End: 10-18-2023 ambulatory [facility] Start: 10-06-2023 Non-patient / Non-visit DO Phillip Lynch Work Phone[facility] Work Phone: Start: 10-05-2023 End: 10-05-2023 ambulatory [facility] Facility:[facility] Start: 10-05-2023 End: 10-05-2023 ambulatory DO Jenaro Kuns Work Phone: [facility] Work Phone: Start: 10-05-2023 End: 10-05-2023 Departed Referred DO Jenaro Kuns Work Phone: [facility] Start: 10-05-2023 Non-patient / Non-visit DO Phillip an Kuns Work Phone: [facility] Work Phone: Start: 10-04-2023 Non-patient / Non-visit DO Phillip an Kuns Work Phone: [facility] Work Phone: Start: 10-03-2023 Non-patient / Non-visit DO Phillip an Kuns Work Phone: [facility] Work Phone: Start: 10-02-2023 End: 10-02-2023 ambulatory [facility] Facility:[facility] Start: 10-02-2023 End: 10-02-2023 ambulatory DO Jenaro Kuns Work Phone: [facility] Work Phone: Start: 10-02-2023 End: 10-02-2023 Departed Referred DO Jenaro Kuns Work Phone: [facility] Start: 10-02-2023 Non-patient / Non-visit DO Phillip an Kuns Work Phone: [facility] Work Phone: Start: 10-01-2023 Non-patient / Non-visit DO Phillip an Kuns Work Phone: [facility] Work Phone: Start: 09-30-2023 Non-patient / Non-visit DO Phillip an Kuns Work Phone: [facility] Work Phone: Start: 09-27-2023 Non-patient / Non-visit DO Phillip an Kuns Work Phone: [facility] Work Phone: Start: 09-21-2023 End: 09-21-2023 ambulatory Jenaro Jetts Facility:[facility] Start: 09-21-2023 End: 09-21-2023 ambulatory DO Jenaro Jetts Work Phone: [facility] Work Phone: Start: 09-21-2023 End: 09-21-2023 Departed Referred DO Jenaro Jetts Work Phone: [facility] Start: 09-21-2023 Non-patient / Non-visit DO Phillip an Kuns Work Phone: [facility] Work Phone: Start: 09-18-2023 Non-patient / Non-visit DO Phillip an Kuns Work Phone: [facility] Work Phone: Start: 09-08-2023 End: 09-08-2023 ambulatory Yeyo ROWE Facility:[facility] Start: 09-08-2023 End: 09-08-2023 Patient encounter procedure Yeyo ROWE [facility] Start: 08-10-2023 Non-patient / Non-visit DO Phillip an Kuns Work Phone: [facility] Work Phone: Start: 08-08-2023 Non-patient / Non-visit DO Phillip an Kuns Work Phone: [facility] Work Phone: Start: 08-07-2023 Non-patient / Non-visit DO Phillip an Kuns Work Phone: [facility] Work Phone: Start: 08-06-2023 Non-patient / Non-visit DO Phillip an Kuns Work Phone: [facility] Work Phone: Start: 08-05-2023 Non-patient / Non-visit DO Phillip an Kuns Work Phone: [facility] Work Phone: Start: 08-04-2023 Non-patient / Non-visit DO Phillip an Kuns Work Phone: [facility] Work Phone: Start: 08-03-2023 Non-patient / Non-visit DO Phillip an Kuns Work Phone: [facility] Work Phone: Start: 07-31-2023 ambulatory Jenaro Lynch Facility:[facility] Start: 07-31-2023 Registered Recurring DO Jenarogorge Fraustojoe Work Phone: [facility]In[facility] - O/P Work Phone: Start: 07-26-2023 Non-patient / Non-visit DO Phillip an Kuns Work Phone: [facility] Work Phone: Start: 07-12-2023 End: 07-12-2023 Emergency department patient visit Jenaro Lynch Facility:[facility] Start: 07-12-2023 End: 07-12-2023 Emergency department patient visit DO Jenaro Lynch Work Phone: [facility] Work Phone: Start: 07-07-2023 End: 07-07-2023 ambulatory Jenaro Fraustojoe Other [place] Other Start: 07-07-2023 Telephone encounter [facility] Start: 07-03-2023 End: 07-03-2023 ambulatory Yeyo ROWE Facility:[facility] Start: 06-26-2023 End: 06-26-2023 ambulatory Jenaro Lynch Other [place] Other Start: 06-26-2023 Telephone encounter Jenaro Lynch [facility] Start: 06-02-2023 End: 06-02-2023 ambulatory Yeyo ROWE Facility:[facility] Start: 06-02-2023 End: 06-02-2023 Patient encounter procedure Yeyo ROWE [facility] [place] Start: 05-16-2023 End: 05-16-2023 ambulatory Jenaro Lynch Other [place] Other Start: 05-16-2023 Telephone encounter Jenaro Lynch [facility] Start: 05-03-2023 End: 05-03-2023 ambulatory Yeyo ROWE Facility:[facility] Start: 05-03-2023 End: 05-03-2023 Patient encounter procedure Yeyo ROWE [facility] Start: 04-28-2023 End: 04-28-2023 ambulatory Jenaro Lynch Other [place] Other Start: 04-28-2023 Telephone encounter Jenaro Lynch [facility] Start: 04-18-2023 End: 04-18-2023 ambulatory Yeyo ROWE Facility: [place] Start: 04-18-2023 End: 04-18-2023 Patient encounter procedure Yeyo ROWE [facility] Start: 04-17-2023 ambulatory Yeyo ROWE Facili ty:[facility] [place] Start: 04-13-2023 End: 04-13-2023 ambulatory Yeyo ROWE Facility:[id number] Start: 04-11-2023 End: 04-11-2023 ambulatory Jenaro Lynch Other [place] Other Start: 04-11-2023 Telephone encounter Jenaro Lynch [facility] [place] Start: 04-06-2023 End: 04-06-2023 ambulatory Jenaro Lynch Other [place] Other Start: 04-06-2023 Encounter for other preprocedural examination Jenaro Lynch [facility] [place] Start: 04-06-2023 Office outpatient vi sit 25 minutes Jenaro Lynch [facility] [place] Start: 03-28-2023 End: 03-28-2023 ambulatory Jenaro Lynch Other [place] Other Start: 03-28-2023 Telephone encounter Jenaro Lynch [facility] [place] Start: 03-20-2023 ambulatory Yeyo ROWE Facili ty:[facility] Start: 03-15-2023 End: 03-15-2023 ambulatory Yeyo ROWE [place] Other Start: 03-15-2023 Office outpatient vi sit 25 minutes Jenaro Lynch [facility] [place] Start: 03-10-2023 End: 03-10-2023 ambulatory Jenaro Lynch Other [place] Other Start: 03-10-2023 Telephone encounter Jenaro Lynch [facility] [place] Start: 02-15-2023 Office outpatient vi sit 15 minutes Jenaro Lynch Work Phone: [facility] 250 DO Work Phone: Start: 02-15-2023 ambulatory Dolores Feldman Facility:[id number] Start: 02-14-2023 End: 02-14-2023 ambulatory Yeyo ROWE [facility] Start: 02-14-2023 End: 02-14-2023 Patient encounter procedure Yeyo Viktoria [facility] Start: 02-08-2023 End: 02-08-2023 ambulatory Yeyo ROWE [facility] Start: 02-08-2023 End: 02-08-2023 Patient encounter procedure Yeyo Viktoria [facility] Start: 01-30-2023 End: 01-30-2023 ambulatory Yeyo ROWE Facility:[facility] Start: 01-30-2023 End: 01-30-2023 Patient encounter procedure Yeyo R ROWE [facility] Start: 01-25-[address] Jenaro Lynch Facility:[id number] Start: 01-17-2023 End: 01-17-2023 ambulatory Jenaro Lynch Other [facility] Other Start: 01-17-2023 Telephone encounter Jenaro Lynch [facility] [place] Start: 01-11-2023 Office outpatient vi sit 25 minutes Jenaro Lynch Work Phone: [facility] 600 DO Work Phone: Start: 01-11-2023 ambulatory Dolores Feldman Facility:[id number] Start: 12-28-2022 End: 12-28-2022 ambulatory Yeyo ROWE Facility:[facility] Start: 12-28-2022 End: 12-28-2022 Patient encounter procedure Yeyo ROWE [facility] Start: 12-21-2022 ambulatory Yeyo ROWE Facili ty:[facility] Start: 12-01-2022 End: 12-01-2022 ambulatory Jenaro Lynch Other [place] Other Start: 12-01-2022 Office outpatient vi sit 25 minutes Jenaro Lynch [facility] [place] Start: 11-30-2022 ambulatory Yeyo ROWE Facility :[facility] Start: 11-23-2022 End: 11-23-2022 Patient encounter procedure Yeoy ROWE [facility] [place] Start: 10-07-2022 End: 10-07-2022 ambulatory Jenaro Lynch Other [place] Other Start: 10-07-2022 Telephone encounter Jenaro Lynch [facility] [place] Start: 09-27-2022 End: 09-27-2022 ambulatory DO Jenaro Lynch Work Phone: [facility] Work Phone: Start: 09-27-2022 End: 09-27-2022 Patient encounter procedure DO Jenaro Lynch Work Phone: [facility] [place] Work Phone: Start: 09-21-2022 End: 09-21-2022 ambulatory Jenaro Lynch Other [place] Other Start: 09-21-2022 Telephone encounter Jenaro Lynch [facility] [place] Start: 09-14-2022 End: 09-14-2022 ambulatory Jenaro Lynch Other [place] Other Start: 09-14-2022 Telephone encounter Jenaro Lynch [facility] [place] Start: 09-02-2022 End: 09-02-2022 Patient encounter procedure DO Jenaro Lynch Work Phone: [facility] [place] Work Phone: Start: 08-25-2022 End: 08-25-2022 ambulatory Doris Barnes Other [place] Other Start: 08-25-2022 Telephone encounter Doris Barnes [facility] Start: 08-22-2022 End: 08-22-2022 ambulatory Jenaro Lynch Other [place] Other Start: 08-22-2022 Telephone encounter Jenaro Lynch [facility] [place] Start: 08-05-2022 End: 08-05-2022 ambulatory Jenaro Lynch Other [place] Other Start: 08-05-2022 Telephone encounter Jenaro Lynch [facility] [place] Start: 08-04-2022 End: 08-04-2022 ambulatory Jenaro Lynch Other [place] Other Start: 08-04-2022 Telephone encounter Jenaro Lynch [facility] [place] Start: 07-28-2022 End: 07-28-2022 ambulatory Jenaro Lynch Other [place] Other Start: 07-28-2022 Telephone encounter Jenaro Lynch [facility] Start: 07-25-2022 End: 07-25-2022 ambulatory Jenaro Lynch Other [place] Other Start: 07-25-2022 Nursing evaluation o f patient and report Jenaro Lynch [facility] [place] Start: 07-19-2022 End: 07-19-2022 ambulatory Jenaro Lynch Other [place] Other Start: 07-19-2022 Telephone encounter Jenaro Lynch [facility] [place] Start: 07-15-2022 End: 07-15-2022 ambulatory Jenaro Fraustojoe Other [place] Other Start: 07-15-2022 Telephone encounter Jenaro Lynch [facility] [place] Start: 07-13-2022 End: 07-13-2022 ambulatory Jenaro Lynch Other [place] Other Start: 07-13-2022 Nursing evaluation o f patient and report Jenaro Lynch [facility] [place] Start: 07-12-[address] Raulito gutierrez [facility] Facility: Start: 07-05-2022 End: 07-05-2022 ambulatory Jenaro Lynch Other [place] Other Start: 07-05-2022 Telephone encounter Jenaro Lynch [facility] [place] Start: 07-05-2022 Rx Renewal Jenaro Lynch Work Phone: [facility] 250 DO Work Phone: Start: 07-04-2022 End: 07-04-2022 ambulatory Jenaro Lynch Other [place] Other Start: 07-04-2022 Office outpatient vi sit 25 minutes Jenaro Lynch [facility] [place] Start: 06-30-2022 End: 06-30-2022 ambulatory Jenaro Lynch Other [place] Other Start: 06-30-2022 Telephone encounter Jenaro Lynch [facility] [place] Start: 05-25-2022 End: 05-25-2022 ambulatory Jenaro Lynch Other [place] Other Start: 05-25-2022 Telephone encounter Jenarogorge Lynch [facility] [place] Start: 04-25-2022 End: 04-25-2022 ambulatory Jenarogorge Lynch Other [place] Other Start: 04-25-2022 Telephone encounter Jenaro Lynch [facility] [place] Start: 04-19-2022 End: 04-19-2022 ambulatory Jenarogorge Lycnh Other [place] Other Start: 04-19-2022 Telephone encounter Jenaro Lynch [facility] [place] Start: 03-22-2022 End: 03-22-2022 ambulatory Jenarogorge Lynch Other [place] Other Start: 03-22-2022 Telephone encounter Jenarogorge Lynch [facility] [place] Start: 03-01-2022 End: 03-01-2022 ambulatory Jenaro Lynch Other [place] Other Start: 03-01-2022 Telephone encounter Jenaro Lynch [facility] [place] Start: 02-18-2022 End: 02-18-2022 ambulatory Jenaro Lynch Other [place] Other Start: 02-18-2022 Telephone encounter Jenarogorge Lynch [facility] [place] Start: 02-15-2022 End: 02-15-2022 ambulatory Verona Abhit Other [place] Other Start: 02-15-2022 Office outpatient vi sit 25 minutes Jenaro Jettjoe [facility] [place] Start: 02-15-2022 Telephone encounter Verona Moet [facility] Start: 01-21-2022 End: 01-21-2022 ambulatory Jenaro Lynch Other [place] Other Start: 01-21-2022 Telephone encounter Jenaro Lynch [facility] [place] Start: 01-19-2022 End: 01-19-2022 ambulatory Jenaro Lynch Other [place] Other Start: 01-19-2022 Telephone encounter Jenaro Lynch [facility] [place] Start: 01-13-2022 End: 01-13-2022 ambulatory Jenarogorge Lynch Other [place] Other Start: 01-13-2022 Telephone encounter Jenarogorge Lynch [facility] [place] Start: 12-23-2021 End: 12-23-2021 ambulatory Jenaro Jettjoe Other [place] Other Start: 12-23-2021 Telephone encounter Jenarogorge Lynch [facility] [place] Start: 11-24-2021 End: 11-24-2021 ambulatory Jenarogorge Lynch Other [place] Other Start: 11-24-2021 Telephone encounter Jenaro Lynch [facility] [place] Start: 11-03-2021 Rx Renewal Jenaro Lynch Work Phone: [facility] 250 DO Work Phone: Start: 10-26-2021 Office outpatient vi sit 25 minutes Jenaro Lynch Work Phone: [facility] 250 DO Work Phone: Start: 10-25-2021 End: 10-25-2021 ambulatory Jenaro Lynch Other [place] Other Start: 10-25-2021 Telephone encounter Jenaro Lynch [facility] [place] Start: 10-19-2021 End: 10-19-2021 ambulatory Amina Fagan Other [place] Other Start: 10-19-2021 Office outpatient vi sit 25 minutes Azjuan Kinseys [facility] Start: 10-18-2021 End: 10-18-2021 ambulatory Azjuan Kinseys Other [place] Other Start: 10-18-2021 Telephone encounter Amina Kinseys [facility] Start: 10-12-2021 End: 10-13-2021 ambulatory DUARTESANDY HENRY . Facility: Start: 10-08-2021 End: 10-08-2021 ambulatory Jenaro Lynch Other [place] Other Start: 10-08-2021 Telephone encounter Jenaro Lynch [facility] [place] Start: 09-22-2021 End: 09-22-2021 ambulatory Jenaro Lynch Other [place] Other Start: 09-22-2021 Telephone encounter Jenaro Lynch [facility] [place] Start: 09-21-2021 End: 09-21-2021 ambulatory Jenaro Lynch Other [place] Other Start: 09-21-2021 Telephone encounter Jenaro Lynch [facility] [place] Start: 08-09-2021 End: 08-09-2021 ambulatory Jenaro Lynch Other [place] Other Start: 08-09-2021 Telephone encounter Jenaro Lynch [facility] [place] Start: 08-02-2021 End: 08-02-2021 ambulatory Jenaro Lynch Other [place] Other Start: 08-02-2021 Telephone encounter Jenaro Lynch [facility] [place] Start: 07-27-2021 End: 07-27-2021 ambulatory Jenaro Lynch Other [place] Other Start: 07-27-2021 Office outpatient vi sit 25 minutes [facility] Start: 06-23-2021 End: 06-23-2021 ambulatory Jenaro Lynch Other [facility] Other Start: 06-23-2021 Telephone encounter Jenaro Lynch [facility] Start: 06-22-2021 Rx Renewal Jenaro Lynch Work Phone: [facility] 250 DO Work Phone: Start: 05-03-2021 End: 05-03-2021 ambulatory Jenaro Lynch Other [facility] Other Start: 05-03-2021 Telephone encounter Jenaro Lynch [facility] Procedures Date Procedure Procedure Detail [...] Phone: Start: 09-30-2023 Blood Culture 2 DO Brya n Syed Work Phone: Start: 09-30-2023 Wound Culture DO [...] Start: 04-13-2023 Transurethral prostatectomy Yeyoneel ROWE Start: 03-27-2023 History of percutane ous [...] procedure 10/21/2024 8:00 AM EDT Office Visit [facility] [address] [address] [place] [id number] Dolores Feldman K, [employer] [address] [facility] [address] [place] [address] [facility] Start: 02-04-2024 Influenza vaccination Influenza Vaccine (Season Ended) [facility] Start: 11-15-2023 FUV, Provider: Raulito Inman, Status: Pen, Time: 2:40 PM FUV, Provider: Raulito Inman, Status: Pen, Time: 2:40 PM [facility] 250 DO Work Phone: Start: 10-02-2023 Acid Fast Culture Acid Fast Culture [facility] Start: 09-30-2023 Blood Culture 1 Blood Culture 1 [facility] Start: 09-30-2023 Blood Culture 2 Blood Culture 2 [facility] Start: 09-30-2023 Wound Culture Wound Culture [facility] Start: 09-21-2023 Abscess Culture Abscess Culture [facility] Start: 08-10-2023 Acid Fast Culture Acid Fast Culture [facility] Start: 08-05-2023 Wound Culture Wound Culture [facility] Start: 07-12-2023 Duplex scan of lower limb veins US venous duplex LE BI [facility] Start: 07-12-2023 US Lower extremity vein - bilateral [facility] Start: 07-12-2023 Duplex scan veins of upper limb US venous duplex UE LT [facility] Start: 07-12-2023 US Upper extremity vein - left [facility] Start: 02-15-2023 FUV, Provider: Dolores Velazquez, Status: Pen, Time: 10:00 AM FUV, Provider: Dolores Velazquez, Status: Pen, Time: 10:[address] [facility] 600 DO Work Phone: Start: 02-03-2023 COVID-19 Vaccine ( season) COVID-19 Vaccine ( season) [facility] Start: 01-25-2023 STRESS NUC, Provider: [facility] NUCLEAR 01,[id number], Status: Pen, Time: 8:30 AM STRESS NUC, Provider: [facility] NUCLEAR 01,[id number], Status: Pen, Time: 8:30 AM -[facility] 600 DO Work Phone: Start: 07-12-2022 FUV, Provider: Raulito Inman, Status: Pen, Time: 9:20 AM FUV, Provider: Raulito Inman, Status: Pen, Time: 9:20 AM -[facility] 250 DO Work Phone: Start: 10-26-2021 FUV, Provider: Raulito Inman, Status: Pen, Time: 9:30 AM FUV, Provider: Raulito Inman, Status: Pen, Time: 9:30 AM -[facility] 250 DO Work Phone: Start: 03-05-2019 Pneumococcal Vaccine: Pediatrics (0 to 5 Years) and At-Risk Patients (6 to 64 Years) (2 of 2 - PCV) Pneumococcal Vaccine: Pediatrics (0 to 5 Years) and At-Risk Patients (6 to 64 Years) (2 of 2 - PCV) [facility] Start: 2015 Zoster Vaccines (1 of 2) Zoster Vaccines (1 of 2) [facility] Start: 1987 DTaP/Tdap/Td Vaccines (1 - Tdap) DTaP/Tdap/Td Vaccines (1 - Tdap) [facility] Start: 1984 Hepatitis B Vaccines (1 of 3 - 19+ 3-dose series) Hepatitis B Vaccines (1 of 3 - 19+ 3-dose series) [facility] Start: 1984 Urine screening for protein Diabetes: Urine Protein Screening [facility] Start: 1983 Hepatitis C screening Hepatitis C Screening [facility] Start: 1975 Diabetic foot examination Diabetes: Foot Exam [facility] Start: 1975 Glaucoma screening Diabetes: Retinopathy Screening [facility] Start: 1966 MMR Vaccines (1 of 1 - Standard series) MMR Vaccines (1 of 1 - Standard series) [facility] Start: 1965 Hemoglobin A1c measurement Diabetes: Hemoglobin A1C [facility] Start: 1965 HIV screening HIV Screening [facility] Start: 1965 Lipid panel Lipid Panel [facility] Start: 1965 Screening for malignant neoplasm of colon [facility] Start: 1965 Yearly Adult Physical Yearly Adult Physical [facility] Patient Education Dependent Edema (DC) [facility] Work Phone: Patient referral [facility] Work Phone: Immunizations Immunization Date Immunization Notes Care Provider Sachin pettit 11-13-2020 Pfizer-BioNTech COVI D-19 Vacc 30 MCG/0.3ML Intramuscular Suspension Jenaro Lynch Work Phone: [facility] 10-23-2020 Pfizer-BioNTech COVI D-19 Vacc 30 MCG/0.3ML Intramuscular Suspension Jenaro Lynch Work Phone: [facility] 01-14-2019 influenza, seasonal, injectable Jenaro Lynch Other [facility] 01-14-2019 influenza virus vacc ine, unspecified formulation Yeyo ROWE [facility] 04-02-2018 influenza virus vacc ine, unspecified formulation Yeyo ROWE [facility] 04-02-2018 influenza, injectabl e, quadrivalent, preservative free DO Jenaro Lynch Work Phone: [facility] 03-05-2018 influenza virus vacc ine, unspecified formulation Jenaro Lynch Work Phone: [facility] 250 DO Work Phone: 03-05-2018 pneumococcal polysaccharide vaccine, 23 valent [facility] Work Phone: 03-07-2016 influenza virus vacc ine, unspecified formulation Yeyo ROWE [facility] 03-07-2016 influenza, injectabl e, quadrivalent, preservative free [facility] Work Phone: 02-22-2016 pneumococcal polysaccharide vaccine, 23 valent Jenaro Lynch Work Phone: [facility] Payers Date Payer Category Payer Unknown 2023 Self-pay [id number] 2022 Private Health Insurance [id number] 2022 Private Health Insurance [id number] 2022 Private Health Insurance [id number] 2022 Medicaid [id number] 1965 Unknown [id number] 2.16.84 0.1.038601.3.579.2.593 1965 Unknown [id number] 2.16.8 40.1.933477.3.579.2.1068 1965 Unknown [id number] 2.16. 840.1.041117.3.579.2.356 1965 Unknown [id number] 2.16. 840.1.398792.3.579.2.356 1965 Unknown [id number] 2.16. 840.1.299047.3.579.2.356 1965 Unknown [id number] 2.16.8 40.1.295406.3.579.2.1244 1965 Unknown [id number] 2.16.8 40.1.222388.3.579.2.727 1965 Unknown [id number] 2.16.8 40.1.711607.3.579.2.1285 1965 Unknown [id number] 2.16.8 40.1.448657.3.579.2.1285 1965 Unknown [id number] 2.16.8 40.1.777954.3.579.2.1285 1965 Unknown [id number] 2.16.8 40.1.427933.3.579.2.1285 1965 Unknown [id number] 2.16.8 40.1.816966.3.579.2.1285 1965 Unknown [id number] 2.16.8 40.1.142517.3.579.2.1285 1965 Unknown [id number] 2.16.8 40.1.890166.3.579.2.1285 1965 Unknown [id number] 2.16.8 40.1.503665.3.579.2.1285 1965 Unknown [id number] 2.16.8 40.1.029495.3.579.2.7 1965 Unknown [id number] 2.16.8 40.1.942451.3.579.2.727 1965 Unknown [id number] 2.16.8 40.1.954167.3.579.2. 1965 Unknown [id number] 2.16.8 40.1.740595.3.579.2.727 1965 Unknown [id number] 2.16.8 40.1.804485.3.579.2.7 1965 Unknown [id number] 2.16.8 40.1.970379.3.579.2.727 1965 Unknown [id number] 2.16.8 40.1.410577.3.579.2.727 1965 Unknown [id number] 2.16.8 40.1.083322.3.579.2.727 1965 Unknown [id number] 2.16.8 40.1.445386.3.579.2.727 1965 Unknown [id number] 2.16.8 40.1.534345.3.579.2.727 1965 Unknown [id number] 2.16.8 40.1.984112.3.579.2.727 1965 Unknown [id number] 2.16.8 40.1.030957.3.579.2.727 1965 Unknown [id number] 2.16.8 40.1.159910.3.579.2.727 1965 Unknown [id number] 2.16.8 40.1.160300.3.579.2.727 1965 Unknown [id number] 2.16.8 40.1.405201.3.579.2.727 1965 Unknown [id number] 2.16.8 40.1.395491.3.579.2.727 1965 Unknown [id number] 2.16.8 40.1.060764.3.579.2.1286 1959 Unknown [id number] 2.1 6.840.1.783011.19 Unknown [id number] 2.16.8 40.1.412653.3.579.2.531 Unknown [id number] 2.16.8 40.1.459972.3.579.2.531 Unknown [id number] 2.16.8 40.1.994324.3.579.2.531 Unknown [id number] 2.16.8 40.1.743193.3.579.2.531 Unknown [id number] 2.16.8 40.1.732575.3.579.2.531 Social History Date Type Detail Facility Start: 03-05-2024 Caffeine use Caffeine use [facility] Other Comment on above: 2 cups coffee, 4-6 c ups tea daily, occaional soda; qauit 07/2020; Start: 08-08-2023 Sex Assigned At F [facility] Start: 07-14-2020 End: 07-12-2023 Tobacco smoking status NHIS Smoker (finding) [facility] Start: 1965 Sex Assigned At Male F [facility] Start: 11-23-2022 End: 10-23-2023 Tobacco smoking status Heavy tobacco smoker (finding) [facility] Tobacco smoking status Never [facility] Start: 10-24-2023 Tobacco smoking stat us NHIS Ex-smoker [facility] End: 06-05-2020 History of tobacco use Cigarette Smoker [facility] Work Phone: Start: 10-24-2023 Tobacco use and exposure Smokeless tobacco non-user [facility] Work Phone: Start: 10-24-2023 Alcoholic beverage intake Lifetime non-drinker (finding) [facility] Work Phone: Start: 1965 Sex assigned at Not on file U [facility] Work Phone: Start: 10-14-2023 End: 10-24-2023 Exposure to SARS-CoV-2 (event) Not sure [facility] Medical Equipment Procedure Code Equipment Code [...] bilia ry stentMultiple peripheral artery stent, bare-metal [id number] [facility] Start: 07-14-2020 Functional Status Date Assessment Result Facility 10-23-2023 Functional Status No [facility] 06-02-2023 Functional Status N/A [facility] 02-14-2023 Functional Status N/A [facility] 01-30-2023 Functional Status N/A [facility] 11-23-2022 Functional Status N/A [facility] Clinical Notes 06-23-2021 to 10-24-2023 Raulito Inman MD - 10/24/2023 10:20 AM EDTPatient Instructions Note Date & Type Note Facility 10-24-2023 Note Sinus tachycardia Rightward axis Poor anterior R wave progression QTc 481 ms [facility] 10-24-2023 History of Present illness Narrative [...] Attestation By signing my name below, IRosemary LPN , Scribe attest that this documentation has been [...] discussion and plan. documented in this encounter [facility] Work Phone: 10-24-2023 Instructions Rosemary Benavides [...] a cardiac standpoint documented in this encounter [facility] Work Phone: 07-13-2023 Hospital Discharge instructions Follow Up Care 07/13/2023 12:04:02 With:SOLEDAD HERRERA, Yeyo Blum, URL Address: [address] [place] [address]- When: Unknown [facility] 06-26-2023 Evaluation note Encounter Date Diagnosis Assessment Notes Jun, Hyperlipidemia (ICD-10 - E78.5) [facility] Other [id number] Hospital Discharge instructions Patient Education 06/02/2023 11:57:43 [...] urethra. Follow these instructions at home: Take lzzh-yev-bpgwhyk and prescription medicines only as told by [...] provider. Document Revised: 12/08/2021 Document Reviewed: 12/08/2021 [email or web address] Patient Education 2022 [email or web address]. Follow Up Care 06/01/2023 14:05:36 With:SOLEDAD HERRERA, Yeyo Blum, URL Address: [address] [place] [address]- When: Unknown [facility] 12-12-2023 Evaluation note* Encounter Date Diagnosis Assessment Notes Treatment Notes Treatment Clinical Notes May, 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) [facility] Other 11-24-2023 Evaluation note* Encounter Date Diagnosis Assessment Notes Treatment Notes Treatment Clinical Notes Apr, Diabetic nephropathy (ICD-10 - E11.21) [facility] Other 11-07-2023 Evaluation note* Encounter Date Diagnosis Assessment Notes Treatment Notes Treatment Clinical Notes Apr, Left arm pain (ICD-10 - M79.602) [facility] Other 11-02-2023 Evaluation note* Encounter Date Diagnosis [...] and to have his surgery as scheduled. 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 [facility] Other 10-09-2023 Note [id number] Discharge instructions Patient Education [...] including vitamins, herbs, eye drops, creams, and umys-awb-nlcvlfb medicines. Any problems you or family members [...] provider tells you to take them. Taking pbtd-njo-wwfmenq medicines, vitamins, herbs, and supplements. Surgery safety [...] provider. Document Revised: 02/15/2022 Document Reviewed: 02/15/2022 [email or web address] Patient Education 2022 icomply. [facility]09-12-2023 Note [id number]:127[facility] 02-14-2023 [id number]:127[facility]08-28-2023 Hospital Discharge instructions Patient Education [...] including vitamins, herbs, eye drops, creams, and tivw-scj-arqpbgp medicines. ?Whether you are or may be [...] provider. Document Revised: 02/02/2022 Document Reviewed: 12/25/2020 [email or web address] Patient Education 2022 [email or web address] 01/30/2023 11:22:30 Cystoscopy Cystoscopy Cystoscopy is [...] including vitamins, herbs, eye drops, creams, and haga-ths-vraugsh medicines. Any problems you or family members [...] provider tells you to take them. Taking rkcm-krf-jnvxglu medicines, vitamins, herbs, and supplements. Tests You [...] Follow these instructions at home: Medicines Take jpdi-ree-syxauja and prescription medicines only as told by [...] provider. Document Revised: 02/02/2022 Document Reviewed: 01/01/2021 [email or web address] Patient Education 2022 [email or web address]. 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 [facility] Other 06-21-2023 Hospital Discharge instructions Patient Education [...] provider. Document Revised: 08/11/2021 Document Reviewed: 05/07/2021 [email or web address] Patient Education 2021 [email or web address]. Follow Up Care 09/14/2022 14:23:26 With:SOLEDAD HERRERA, Yeyo Blum, URL Address: [facility] [address], [place] [address]- When: Unknown [facility] 05-05-2023 Evaluation note* Encounter Date Diagnosis Assessment Notes Treatment Notes Treatment Clinical Notes October, Erectile dysfunction, unspecified erectile dysfunction type (ICD-10 - N52.9) [facility] Other 04-19-2023 Evaluation note* Encounter Date Diagnosis Assessment Notes Treatment Notes Treatment Clinical Notes Sep, 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) [facility] Other 04-12-2023 Evaluation note* Encounter Date Diagnosis Assessment Notes Treatment Notes Treatment Clinical Notes Sep, 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) Sep, 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) [facility] Other 03-20-2023 Evaluation note* Encounter Date Diagnosis Assessment Notes Treatment Notes Treatment Clinical Notes Aug, Diabetic nephropathy (ICD-10 - E11.21) [facility] Other 03-03-2023 Evaluation note* Encounter Date Diagnosis Assessment Notes Treatment Notes Treatment Clinical Notes Aug, Pain in right leg (ICD-10 - M79.604) [facility] Other 03-02-2023 Evaluation note* Encounter Date Diagnosis Assessment Notes Treatment Notes Treatment Clinical Notes Aug, Pain in right leg (ICD-10 - M79.604) [facility] Other 02-20-2023 Evaluation note* Encounter Date Diagnosis Assessment Notes Treatment Notes Treatment Clinical Notes Jul, Intractable episodic headache, unspecified headache type (ICD-10 - R51.9) [facility] Other 02-14-2023 Evaluation note* Encounter Date Diagnosis Assessment Notes Treatment Notes Treatment Clinical Notes Jul, Acute intractable headache, unspecified headache type (ICD-10 - R51.9) [facility] Other 02-08-2023 Evaluation note* Encounter Date Diagnosis Assessment Notes Treatment Notes Treatment Clinical Notes Jul, Headache (ICD-10 - R51.9) [facility] Other 01-30-2023 Evaluation note* Encounter Date Diagnosis [...] medication and we will continue to monitor. [facility] Other 12-21-2022 Evaluation note* Encounter Date Diagnosis Assessment Notes Treatment Notes Treatment Clinical Notes May, Diabetic nephropathy (ICD-10 - E11.21) [facility] Other 11-21-2022 Evaluation note* Encounter Date Diagnosis Assessment Notes Treatment Notes Treatment Clinical Notes Apr, Diabetic nephropathy (ICD-10 - E11.21) [facility] Other 11-15-2022 Evaluation note* Encounter Date Diagnosis Assessment Notes Treatment Notes Treatment Clinical Notes Apr, Pain in right leg (ICD-10 - M79.604) [facility] Other 10-18-2022 Evaluation note* Encounter Date Diagnosis Assessment Notes Treatment Notes Treatment Clinical Notes Mar, Diabetic nephropathy (ICD-10 - E11.21) [facility] Other 09-13-2022 Evaluation note* Encounter Date Diagnosis Assessment Notes Treatment Notes Treatment Clinical Notes Feb, Hypertensive chronic kidney disease with stage 1 through stage 4 chronic kidney disease, or unspecified chronic kidney disease (ICD-10 - I12.9) [facility] Other 09-13-2022 Evaluation note* Encounter Date Diagnosis [...] Atherosclerotic hear t disease of [place] coronary artery without angina pectoris (ICD-10 - [...] is to continue to follow with the purchasing director as scheduled. Feb, Pain in right leg [...] denies any urinary issues at this time. 13 Sep, 2022 Gout (ICD-10 - M10.9) U gualberto level [...] Noted upon review of blood work results. [facility] Other 08-19-2022 Evaluation note* Encounter Date Diagnosis Assessment Notes Treatment Notes Treatment Clinical Notes Jan, Diabetic nephropathy (ICD-10 - E11.21) [facility] Other 08-17-2022 Evaluation note* Encounter Date Diagnosis Assessment Notes Treatment Notes Treatment Clinical Notes Jan, Diabetic nephropathy (ICD-10 - E11.21) [facility] Other 07-21-2022 Evaluation note* Encounter Date Diagnosis Assessment Notes Treatment Notes Treatment Clinical Notes Dec, Diabetic nephropathy (ICD-10 - E11.21) [facility] Other 06-22-2022 Evaluation note* Encounter Date Diagnosis Assessment Notes Treatment Notes Treatment Clinical Notes Nov, Diabetic nephropathy (ICD-10 - E11.21) [facility] Other 05-23-2022 Evaluation note* Encounter Date Diagnosis Assessment Notes Treatment Notes Treatment Clinical Notes October, Diabetic nephropathy (ICD-10 - E11.21) [facility] Other 05-17-2022 Evaluation note* Encounter Date Diagnosis [...] 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 Inman. For this October, Other He did quit smoking since July 2020 [facility] Other 05-16-2022 Evaluation note* Encounter Date Diagnosis Assessment Notes Treatment Notes Treatment Clinical Notes October, Hypertensive chronic kidney disease with stage 1 through stage 4 chronic kidney disease, or unspecified chronic kidney disease (ICD-10 - I12.9) October, Stage 3 chronic kidney disease, unspecified whether stage 3a or 3b CKD (ICD-10 - N18.30) [facility] Other 05-06-2022 Evaluation note* Encounter Date Diagnosis Assessment Notes Treatment Notes Treatment Clinical Notes October, Pain in right leg (ICD-10 - M79.604) October, Pain in left leg (ICD-10 - M79.605) [facility] Other 04-20-2022 Evaluation note* Encounter Date Diagnosis Assessment Notes Treatment Notes Treatment Clinical Notes Sep, Diabetic nephropathy (ICD-10 - E11.21) [facility] Other 04-19-2022 Evaluation note* Encounter Date Diagnosis Assessment Notes Treatment Notes Treatment Clinical Notes Sep, Anxiety (ICD-10 - F41.9) Sep, Hypertensive chronic kidney disease with stage 1 through stage 4 chronic kidney disease, or unspecified chronic kidney disease (ICD-10 - I12.9) [facility] Other 03-07-2022 Evaluation note* Encounter Date Diagnosis Assessment Notes Treatment Notes Treatment Clinical Notes Aug, Anxiety (ICD-10 - F41.9) [facility] Other 02-22-2022 Evaluation note* Encounter Date Diagnosis [...] 12 pound weight loss from last visit. [facility] Other [id number] Evaluation note* Encounter Date Diagnosis Assessment Notes Treatment Notes Treatment Clinical Notes Jun, Diabetic nephropathy (ICD-10 - E11.21) [place] [employer] Other Evaluation + Plan note Future Appointments Appointment Date:12/21/2022 11:00:00 AM Scheduled Provider: Location:[facility] Appointment Type:URO Nurse Visit Appointment Date:01/30/2023 10:30:00 AM Scheduled Provider:Yeyo ROWE MD Location:[facility] Appointment Type:URO Office Visit [facility] Evaluation + Plan note Future Appointments Appointment Date:01/30/2023 10:15:00 AM Scheduled Provider:Yeyo ROWE MD Location:[facility] Appointment Type:URO Office Visit [facility] Evaluation + Plan note Future Appointments Appointment Date:02/01/2023 10:00:00 AM Scheduled Provider: Location:[facility] Appointment Type:Urology CALL PAT FT Appointment Date:02/08/2023 09:00:00 AM Scheduled Provider: Location:[facility] Appointment Type:Urology FT Appointment Date:02/14/2023 09:15:00 AM Scheduled Provider: Location:[facility] Appointment Type:Urology FT [facility] evaluation + Plan note Future Appointments Appointment Date:02/14/2023 09:15:00 AM Scheduled Provider: Location:[facility] Future Appointments Appointment Date:03/20/2023 08:45:00 AM Scheduled Provider: Location:[facility] Appointment Type:URO Nurse Visit Appointment Date:04/05/2023 08:00:00 AM Scheduled Provider:Yeyo ROWE MD [facility] Future Appointments Appointment Date:05/03/2023 08:45:00 AM Scheduled Provider:Yeyo ROWE MD [facility] Appointment Type:URO Office Visit [facility] Evaluation + Plan note Future Appointments Appointment Date:07/03/2023 10:15:00 AM Scheduled Provider:Yeyo ROWE MD Location:[facility] Appointment Type:URO Office Visit [facility] evaluation + Plan note Future Appointments Appointment Date:10/23/2023 09:30:00 AM Scheduled Provider:Padmini Montes MD Location[facility] App[facility]FT[facility] noteNo InformationNort [employer] Other Evaluation noteNo assessment information available [facility] Work Phone: Evaluhzkmr note* Diagnosis History of PTCA Postsurgical percutaneous transluminal coronary angioplasty status Hyperlipidemia, unspecified hyperlipidemia type Encounter for pre-operative cardiovascular clearance Former smoker Personal history of tobacco use, presenting hazards to health documented in this encounter [facility] Work Phone: Histlyz general Narrative - Reported* Type Description Date [...] hydrocele repair 08/2016 Surgical History cardiac cath [facility] 04/02/18 Surgical History Lt LE iliac DSA, angioplasty & stenting 09/27/2018 Surgical History Left Angiogram with one stent - Dr. Boss 07/2020 Hospitalization History Deep Depression, Anxiety; [facility] 11-11-10 Hospitalization History [facility] hypoxemia and hyper capnic respirtory failure 11/11/16 Hospitalization History chest pain [facility] 04/02/18 [facility] Other History of Present illness NarrativeReturns in [...] impact [facility] blood [facility] Work Phone: History of Present [...] regimen. He denies medication side effects. [facility] 600 DO Work Phone: History of Present [...] medication regimen. He denies medication side effects. [facility] [employer] 250 DO Work Phone: Hospital course Narrative No data available for this section [facility] [employer] Hospital Discharge instructions No data available for this section [facility] [employer] Progress note No data available for this section [facility] [employer] Chief Complaint SOLOMON FELDMAN is being seen [...] Referral Specialty Diagnoses / Procedures Referred By Contac t Referred To Contact Diagnoses Encounter for pre-operative cardiovascular clearance Procedures ECG 12 Lead Raulito Inman MD [address] [facility] 2, [address] [address] Referral ID Status Reason Start Date Expiration Date V isits Requested Visits Authorized [id number] Authorized 10/24/2023 10/23/2024 1 1 Specialty Diagnoses / Procedures Referred By Brett mandujano Referred To Contact Cardiology Diagnoses History of PTCA Procedures Follow Up In Cardiology Raulito Inman MD [address] [facility] [address], [address] [place] [address] Referral ID Status Reason Start Date Expiration Date V isits Requested Visits Authorized [id number] Authorized 10/24/2023 10/23/2024 1 1 Reason CANCELLED consult and treat; previous patient of Dr. Sharpe last seen in 2020; persisting intractable headaches Diagnosis 1 Acute intractable he adache, unspecified headache type (R51.9) Referral Organization [facility] [place] Referring Provider First Name Jenaro Referring Provider Last Name Syed Referring Provider Specialty Family Jono hunter Referred Organization [facility] Referred Provider Lyssa Sharpe Referred Address [address] [facility] [facility],[place], [place],[address] Referred Provider Specialty Neurology Referral Priority Routine [...] 07/28/2022 10:23:53 AM >Spoke with Marilynn at [facility] and patient has been scheduled and [facility] 10:27:39 AM >Telephone encounter was sent Reason 03/31/22 @ 2:45pm consult and treat Diagnosis 1 Type 2 diabetes bobby itus with circulatory disorder (E11.59) Referral Organization [facility] [place] Referring Provider First Name Jenaro Referring Provider Last Name Syed Referring Provider Specialty Family Prac dale Referred Organization [facility] Referred Provider Doris Barnes Referred Address [address] [facility] [address],[facility] [address],[place], [place],[address] Referred Provider Specialty Nurse Jono calderon Referral Priority Routine Referral Appointment Date 2022-03-31 General Notes Fore, [place] M 022 02:28:10 PM >Received today and sent [...] ECG 12 Lead Raulito Inman MD [address] [place] [address] Referral ID Status Reason Start Date Expiration Date V isits Requested Visits Authorized [id number] Authorized 10/24/2023 10/23/2024 1 1 Care Teams (unrecognized sec tion and content) Team Status: Active Member Role Status Dates Jenaro Lynch DO Primary Care Provider Active Team Status: Inactive Member Role Status Dates Jenaro Lynch DO Primary Care Provider Active Shana Mclaughlin PA-C Attending Provider Active Team Status: Inactive Member Role Status Dates Jenaro Lynch DO Primary Care Provider Active Jenaro Lynch DO [facility] Attending Provider Active Team Status: Inactive [...] September 21, 2023 End: September 21, 2023 Paual Elias DPM MS Attending Provider Active Start: [...] Status: Inactive Member Role Status Dates Paula lEias DPM MS Attending Provider Active Start: October [...] Provider Active Sta rt: October 06, 2023 [employer]er Relationship Specialty Start Date End Date Jenaro [...] content) DATE CREATED AUTHOR 11/11/2022 [facility] DATE CREATED AUTHOR AUTHOR'S ORGANIZ ATION [facility]/2023 [facility] DATE CREATED AUTHOR AUTHOR'S ORGANIZ ATION 02/16/2023 [facility] DATE CREATED AUTHOR AUTHOR'S ORGANIZ ATION 02/16/2023 [facility] DATE CREATED AUTHOR AUTHOR'S ORGANIZ ATION 10/12/2023 [facility] DATE CREATED AUTHOR AUTHOR'S ORGANIZ ATION [facility]/22/2023 [facility] DATE CREATED AUTHOR AUTHOR'S ORGANIZ ATION 10/26/2023 [facility] DATE CREATED AUTHOR AUTHOR'S ORGANIZ ATION 10/26/2023 [facility] DATE CREATED AUTHOR AUTHOR'S ORGANIZ ATION 11/16/2023 [facility] DATE CREATED AUTHOR AUTHOR'S ORGANIZ ATION 11/25/2023 [facility] DATE CREATED AUTHOR AUTHOR'S ORGANIZ ATION 11/29/2023 Dameron Lonoke [facility] DATE CREATED AUTHOR AUTHOR'S ORGANIZ ATION 12/01/2023 [facility] FOR RECORDS PERTAINING TO PATIENTS WHO ARE [...] BASED ON THE PRIMARY CLINICAL RECORDS. [facility]. provides no warranty or guarantee of the accuracy or completeness of information in this document.
--- NOTE | 2023-12-09 12:26 | ECG_ITS ---
[facility] Test Date: 2023-12-09 Pat Name: MYRA FELIPE Department: Room: - Gender: Male Clinical Nurse Reviewer: : 1965 Requested By: [id number] Order Number: [id number] Reading MD: Measurements Intervals [place] Rate: 108 P: -[id number] OR: -40597 QRS: 118 QRSD: 90 T: 44 QT: 342 QTc: 406 Interpretive Statements 1420 Undetermined rhythm (Possible supraventricular tachycardia) 9[address]23 ST depression, possible digitalis effect 5120 Possible right ventricular hypertrophy 0102 ARTIFACT PRESENT 9150 abnormal ECG No previous ECG available for comparison
[2023-12-09] MEDS: 0.9 % SODIUM CHLORIDE 1,000 ML 1000 ML IV (12:32)
--- NOTE | 2023-12-09 12:33 | XR_ITS ---
[address] [address] Patient Name: MYRA FELIPE MRN: [id number] date: 1965 Sex: M Assigned Patient Location: ER Current Patient Location: ER Accession/Order Number: [id number] Exam Date: 12/09/2023 13:03 Report Date: 12/09/2023 14:14 At the request of: CLARICE CHARLTON Procedure: XR chest 1V EXAM: XR chest 1V INDICATION: shortness of breath. COMPARISON: Chest radiograph 09/30/2023 TECHNIQUE: Single frontal view of the chest FINDINGS: Normal cardiomediastinal contours. No acute infiltrative process. No pleural effusion or pneumothorax. No acute osseous abnormality. XR/XR chest 1V IMPRESSION: No acute cardiopulmonary process. Electronically authenticated by: KATINA IVAN Date: 12/09/2023 14:14
[2023-12-09] MEDS: ONDANSETRON PF 4 MG/2 ML VIAL IV (12:50)
[2023-12-09 12:53] LABS: Basophils Absolute Auto 0.1 10^3/uL (0.0-0.1); Eosinophils Absolute Auto 0.2 10^3/uL (0.0-0.7); Eosinophils Percent Auto 1.6 % (0.9-7.0); Hematocrit 39.2 % (42.0-54.0); Hemoglobin 12.2 g/dL (14.0-18.0); Immature Granulocytes Abs Auto 0.03 10^3/uL (0.00-0.03); Immature Granulocytes Pct Auto 0.3 % (0.0-0.5); Lymphocytes Absolute Auto 1.5 10^3/uL (1.2-3.8); Lymphocytes Percent Auto 15.7 % (20.5-60.0); Mean Corpuscular HGB Conc 31.1 g/dL (29.9-35.2); Mean Corpuscular Hemoglobin 25.6 pg (25.9-34.0); Mean Corpuscular Volume 82.4 fL (80.0-94.0); Mean Platelet Volume 10.7 fL (9.5-13.5); Monocytes Absolute Auto 0.9 10^3/uL (0.3-0.8); Monocytes Percent Auto 9.1 % (1.7-12.0); Neutrophils Absolute Auto 6.7 10^3/uL (1.4-6.5); Neutrophils Percent Auto 72.3 % (43.0-75.0); Platelet Count 294 10^3/uL (150-450); Red Blood Count 4.76 10^6/uL (4.70-6.10); Red Cell Distribution Width 17.7 % (11.0-15.0); White Blood Count 9.3 10^3/uL (4.0-11.0)
[2023-12-09 13:17] LABS: Alanine Aminotransferase 13 U/L (16-63); Albumin Globulin Ratio 0.8; Albumin Level 3.5 g/dL (3.4-5.0); Alkaline Phosphatase 141 U/L (46-116); Anion Gap 18.1; Aspartate Amino Transferase 8 U/L (15-37); BUN Creatinine Ratio 9.2; Bilirubin Total 0.7 mg/dL (0.2-1.0); Calcium 9.6 mg/dL (8.5-10.1); Carbon Dioxide 21.7 mmol/L (21.0-32.0); Chloride 99 mmol/L (98-107); Estimated GFR (African America 38 (>=60); Estimated GFR (Non-African Ame 31 (>=60); Globulin 4.6 g/dL; Glucose 191 mg/dL (74-106); Magnesium 1.6 mg/dL (1.8-2.4); Potassium 3.8 mmol/L (3.5-5.1); Sodium 135 mmol/L (136-145); Total Protein 8.1 g/dL (6.4-8.2); Troponin I High Sensitivity 8.7 pg/mL (4.0-76.1)
[2023-12-09 13:21] LABS: D Dimer 3.76 mg/L FEU (<=0.59)
[2023-12-09 13:22] LABS: Lactate/Lactic Acid 5.3 mmol/L (0.4-2.0)
--- NOTE | 2023-12-09 13:36 | CT_ITS ---
The [address] [address] Patient Name: MYRA FELIPE MRN: [id number] date: 1965 Sex: M Assigned Patient Location: ER Current Patient Location: ER Accession/Order Number: [id number] Exam Date: 12/09/2023 14:44 Report Date: 12/09/2023 15:24 At the request of: CLARICE CHARLTON Procedure: CT abdomen pelvis wo con EXAM: CT abdomen pelvis wo con INDICATION: small bowel obstruction. COMPARISON: CT runoff 11/02/2023. TECHNIQUE: Multiple contiguous axial CT images of the abdomen and pelvis were obtained without the use of intravenous contrast. Sagittal and coronal reconstructions were performed. Dose reduction techniques were achieved by using: automated exposure control and/or adjustment of mA and /or kV according to patient size and/or use of iterative reconstruction technique. FINDINGS: Evaluation of visceral organs limited by noncontrast technique. LOWER CHEST: Stable nodules in the lingula, largest measuring 7 mm. ABDOMEN AND PELVIS: LIVER: Numerous calcified granulomas. BILIARY SYSTEM: Normal gallbladder. No biliary ductal dilatation. PANCREAS: Unremarkable. SPLEEN: Numerous calcified granulomas. ADRENAL GLANDS: Normal. URINARY SYSTEM: Small bilateral renal cysts. No hydronephrosis or urolithiasis. Normal bladder. REPRODUCTIVE: Unremarkable. GASTROINTESTINAL TRACT: Normal caliber bowel. No bowel wall thickening or inflammation. Appendectomy. VESSELS: Nonaneurysmal abdominal aorta with mild atherosclerotic calcifications. Bilateral common/external iliac artery stents in place. Right femoral artery stent placed in the interim. LYMPH NODES: No adenopathy. PERITONEUM: No ascites or pneumoperitoneum. MUSCULOSKELETAL: SOFT TISSUES: Right inguinal soft tissue inflammatory stranding and 1.3 cm fluid collection. BONES: No acute osseous abnormality or suspicious osseous lesion. STRONG: (series:image) CT/CT abdomen pelvis wo con IMPRESSION: 1. No acute abdominal or pelvic process identified. 2. Interval right femoral artery stent placement. Postsurgical inflammation in the right inguinal subcutaneous soft tissues and a small fluid collection, likely a seroma or hematoma. Electronically authenticated by: KATINA IVAN Date: 12/09/2023 15:24
[2023-12-09] MEDS: MAGNESIUM SULFATE IN WATER 2 GM/50 ML PREMIX IV (13:41)
--- NOTE | 2023-12-09 13:57 | ED.GENADUL1 ---
HPI HPI - General Adult General Chief complaint: Nausea/Vomiting/Diarrhea Stated complaint: FEVER, CHILLS Time Seen by Provider: 12/09/23 12:25 Source: patient Mode of arrival: walk-in Limitations: no limitations History of Present Illness HPI narrative: Patient arriving to us with 2 to 3 days history of nausea and vomiting and not tolerating anything p.o., had this 1 episode of diarrhea before arrival. No blood in stool or urine. The patient when was in the room he mentioned that he also is having shortness of breath but it seems that this just started and it was mostly secondary to anxiety. No cough no fever no other complaints. The patient also had a chronic right foot ulcer that he is getting evaluated chronically for and the last time he had any wound check was 2 weeks ago No fever or chills at home Related Data Home Medications ?Medication ?Instructions ?Recorded ?Confirmed empagliflozin 10 mg tablet 10 mg PO BID 03/03/23 12/09/23 (Jardiance) metformin 1,000 mg tablet 1,000 mg PO DAILY 03/03/23 12/09/23 nitroglycerin 0.4 mg sublingual 0.4 mg sublingual Q5M PRN chest 03/03/23 12/09/23 tablet pain omeprazole 40 mg capsule,delayed 40 mg PO DAILY 03/03/23 12/09/23 release pregabalin 200 mg capsule 200 mg PO TID 03/03/23 12/09/23 fremanezumab-vfrm 225 mg/1.5 mL 225 mg subcut .QMonth 08/03/23 12/09/23 subcutaneous auto-injector (Ajovy) isosorbide mononitrate 30 mg 30 mg PO DAILY 08/03/23 12/09/23 tablet,extended release 24 hr albuterol sulfate 90 mcg/actuation 2 inh inhalation Q8H PRN shortness 12/09/23 12/09/23 aerosol inhaler (Proventil HFA) of breath or wheezing amitriptyline 100 mg tablet 25 mg PO DAILY 12/09/23 12/09/23 aspirin 81 mg tablet,delayed 81 mg PO DAILY 12/09/23 12/09/23 release atorvastatin 80 mg tablet 80 mg PO DAILY 12/09/23 12/09/23 clopidogrel 75 mg tablet 75 mg PO DAILY 12/09/23 12/09/23 dulaglutide 0.75 mg/0.5 mL 0.75 mg subcut QWEEK 12/09/23 12/09/23 subcutaneous pen [facility]) metoprolol tartrate 100 mg tablet 50 mg PO BID 12/09/23 12/09/23 omeprazole 40 mg capsule,delayed 40 mg PO DAILY 12/09/23 12/09/23 release rimegepant 75 mg disintegrating mg 12/09/23 tablet (Nurtec ODT) ropinirole 2 mg tablet,extended 2 mg PO DAILY 12/09/23 12/09/23 release 24 hr sildenafil 100 mg tablet 100 mg PO Q24H PRN erectile 12/09/23 12/09/23 dysfunction sitagliptin phosphate 100 mg 100 mg PO DAILY 12/09/23 12/09/23 tablet (Januvia) sitagliptin phosphate 100 mg 100 mg PO DAILY 12/09/23 12/09/23 tablet (Januvia) tamsulosin 0.4 mg capsule 0.4 mg PO BID 12/09/23 12/09/23 tiotropium bromide 1.25 2 inh inhalation QAM 12/09/23 12/09/23 mcg/actuation mist for inhalation (Spiriva Respimat) tramadol 50 mg tablet 50 mg PO Q8H 12/09/23 12/09/23 valsartan 160 1 tab PO DAILY 12/09/23 12/09/23 mg-hydrochlorothiazide 12.5 mg tablet (Diovan HCT) Allergies Allergy/AdvReac Type Severity Reaction Status Date / Time Penicillins Allergy Severe Swelling Verified 11/15/23 06:06 of Lip/Tongue/Throat bee venom protein (honey bee) Allergy Swelling Verified 11/15/23 06:06 of Lip/Tongue/Throat latex Allergy Rash Verified 11/15/23 06:06 Opioid HPI Opioid Management Most Recent Opioid Data: Last Pain Scale 8 12/10/23 06:21 Last Pain Intensity 9 03/04/23 10:36 Last Pain Assessment 12/10/23 06:00 Last MAR Pain Assessment 12/10/23 06:21 Last ORT Total Score 0 12/09/23 18:16 Last ORT Risk Category Low Risk 12/09/23 18:16 Ur Phencyclidine Scrn Negative (NEGATIVE) 03/03/23 17:24 Review of Systems ROS Status of ROS 10 or more systems reviewed and unremarkable except as noted in history and below [facility] Medical History (Updated 12/09/23 @ 16:57 by Delfina Farah MD) Ulcer of right foot with necrosis of bone ?L97.514 - Non-pressure chronic ulcer of other part of right foot with necrosis of bone (ICD-10) Acute osteomyelitis of right foot ?M86.171 - Other acute osteomyelitis, right ankle and foot (ICD-10) Hypocalcemia ?E83.51 - Hypocalcemia (ICD-10) Hypomagnesemia ?E83.42 - Hypomagnesemia (ICD-10) Sepsis ?A41.9 - Sepsis, unspecified organism (ICD-10) Wound of foot ?S91.309A - Unspecified open wound, unspecified foot, initial encounter (ICD-10) Abscess of right foot ?L02.611 - Cutaneous abscess of right foot (ICD-10) Chronic ulcer of right foot ?L97.519 - Non-pressure chronic ulcer of other part of right foot with unspecified severity (ICD-10) Anticoagulated ?Z79.01 - 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 control 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 (current) use of anticoagulants (ICD-10) Diabetic infection of right foot ?E11.628 - Type 2 diabetes mellitus with other skin complications (ICD-10) ?L08.9 - Local infection of the skin and subcutaneous tissue, unspecified (ICD-10) Puncture wound of right foot ?S91.331A - Puncture wound without foreign body, right foot, initial encounter (ICD-10) Cellulitis of foot, right ?L03.115 - Cellulitis of right lower limb (ICD-10) ROEL (acute kidney injury) ?N17.9 - Acute kidney failure, unspecified (ICD-10) Sepsis ?A41.9 - Sepsis, unspecified organism (ICD-10) CHF (congestive heart failure) ?I50.9 - Heart failure, unspecified (ICD-10) Migraine headache ?G43.909 - Migraine, unspecified, not intractable, without status migrainosus (ICD-10) Tobacco abuse ?Z72.0 - Tobacco use (ICD-10) DM2 (diabetes mellitus, type 2) ?E11.9 - Type 2 diabetes mellitus without complications (ICD-10) Carpal tunnel syndrome ?G56.00 - Carpal tunnel syndrome, unspecified upper limb (ICD-10) Back pain ?M54.9 - Dorsalgia, unspecified (ICD-10) Arthritis ?M19.90 - Unspecified osteoarthritis, unspecified site (ICD-10) Restless leg ?G25.81 - Restless legs syndrome (ICD-10) GERD (gastroesophageal reflux disease) ?K21.9 - Gastro-esophageal reflux disease without esophagitis (ICD-10) High cholesterol ?E78.00 - Pure hypercholesterolemia, unspecified (ICD-10) Myocardial infarction ?I21.9 - Acute myocardial infarction, unspecified (ICD-10) Coronary artery disease ?I25.10 - Atherosclerotic heart disease of [place] coronary artery without angina pectoris (ICD-10) BPH with obstruction/lower urinary tract symptoms ?N40.1 - Benign prostatic hyperplasia with lower urinary tract symptoms (ICD-10) ?N13.8 - Other obstructive and reflux uropathy (ICD-10) Dementia ?F03.90 - Unspecified dementia, unspecified severity, without behavioral disturbance, psychotic disturbance, mood disturbance, and anxiety (ICD-10) CKD stage 4 due to type 2 diabetes mellitus ?E11.22 - Type 2 diabetes mellitus with diabetic chronic kidney disease (ICD-10) ?N18.4 - Chronic kidney disease, stage 4 (severe) (ICD-10) Hyperlipidemia ?E78.5 - Hyperlipidemia, unspecified (ICD-10) Polyp of prostate with urinary obstruction ?N40.1 - Benign prostatic hyperplasia with lower urinary tract symptoms (ICD-10) ?N13.8 - Other obstructive and reflux uropathy (ICD-10) Femoral artery stenosis ?I70.209 - Unspecified atherosclerosis of [place] arteries of extremities, unspecified extremity (ICD-10) Glaucoma ?H40.9 - Unspecified glaucoma (ICD-10) Carpal tunnel syndrome, bilateral ?G56.03 - Carpal tunnel syndrome, bilateral upper limbs (ICD-10) Gout ?M10.9 - Gout, unspecified (ICD-10) COPD (chronic obstructive pulmonary disease) ?J44.9 - Chronic obstructive pulmonary disease, unspecified (ICD-10) Neuropathy ?G62.9 - Polyneuropathy, unspecified (ICD-10) Chronic kidney disease ?N18.9 - Chronic kidney disease, unspecified (ICD-10) Hypertension ?I10 - Essential (primary) hypertension (ICD-10) Weakness ?R53.1 - Weakness (ICD-10) Surgical History (Updated 09/15/23 @ 10:12 by Shana George NP) H/O foot surgery (08/10/23) ?Z98.890 - Other specified postprocedural states (ICD-10) S/P TURP (04/13/23) ?Z90.79 - Acquired absence of other genital organ(s) (ICD-10) H/O foot surgery (08/05/23) ?Z98.890 - Other specified postprocedural states (ICD-10) History of heart artery stent ?Z95.5 - Presence of coronary angioplasty implant and graft (ICD-10) History of spinal surgery ?Z98.890 - Other specified postprocedural states (ICD-10) History of colonoscopy ?Z98.890 - Other specified postprocedural states (ICD-10) History of carpal tunnel release ?Z98.890 - Other specified postprocedural states (ICD-10) History of cataract extraction ?Z98.49 - Cataract extraction status, unspecified eye (ICD-10) History of appendectomy ?Z90.49 - Acquired absence of other specified parts of digestive tract (ICD-10) History of heart artery stent ?Z95.5 - Presence of coronary angioplasty implant and graft (ICD-10) Family History (Updated 03/03/23 @ 18:46 by Darling Sharma RN) Mother Family history of CHF (congestive heart failure) Family history of diabetes mellitus Family history of hypertension Grandfather Family history of CHF (congestive heart failure) Family history of diabetes mellitus Family history of hypertension Family history of myocardial infarction Grandmother Family history of hypertension Social History (Updated 12/09/23 @ 17:38 by Marybel Stevens LPN) Within the past year, how often did you have a drink containing alcohol: never Score interpretation: A score less than 4 is consistent with normal alcohol consumption. Smoking status: Current every day smoker What tobacco products do you use: cigarettes Cigarettes per day: 20 Years smoked: 42 Smoking pack-years: 42.00 Non-prescribed substance use: denies use Previous occupational history: DISABLED Highest level of school completed/degree received: Associate degree: occupational, technical, vocational program In a typical week, how many times do you talk on the telephone with family, friends, or neighbors: never How often do you get together with friends or relatives: never Do you belong to any clubs or organizations such as alevism groups unions, fraternal or athletic groups, or school groups: no Little interest or pleasure in doing things: not at all Feeling down, depressed, or hopeless: not at all Do you think of yourself as: straight/heterosexual Gender Identity: male Exam Narrative Exam Narrative: Nurses notes and vital signs reviewed and patient is not hypoxic. General: Well-appearing and in no apparent distress. Skin: Warm, dry, no pallor noted. No rash. Head: Normocephalic, atraumatic. Neck: Supple, non-tender. Eye: Pupils are equal, round and EOMI. No scleral icterus. Ears, Nose, Mouth, and Throat: TM are clear, no nasal mucosal hypertrophy. Oral mucosa is moist, no posterior oropharynx erythema, uvula is mid-line Cardiovascular: Regular Rate and Rhythm without murmur, gallop or rub. Respiratory: No accessory muscle use or respiratory distress. Lungs are clear to auscultation, no wheezing, rales or rhonchi Chest Wall: no tenderness Back: No midline thoracic or lumbar vertebral tenderness. 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 Normal bowel sounds. No masses appreciated. Discomfort upon palpation of the lower abdomen no rebound, guarding, or rigidity noted. Neurological: A&O x4. No cranial nerve dysfunction observed. No truncal ataxia. Moves all extremities. Sensation intact. Psychiatric: Cooperative and interactive. Normal mood and affect. Constitutional Vital Signs, click to edit/add: Last Vital Signs Temp 98.8 F 12/10/23 04:34 Pulse 84 12/10/23 04:34 Resp 18 12/10/23 04:34 BP 113/65 12/10/23 04:34 Pulse Ox 97 12/10/23 04:34 O2 Del Method Room Air 12/10/23 04:34 Course Vital Signs Vital signs: Vital Signs Pulse Rate 109 H 12/09/23 12:16 Respiratory Rate 28 H 12/09/23 12:16 Pulse Oximetry 99 12/09/23 12:16 Temperature 98.8 F 12/10/23 04:34 Pulse Rate 84 12/10/23 04:34 Respiratory Rate 18 12/10/23 04:34 Blood Pressure 113/65 12/10/23 04:34 Pulse Oximetry 97 12/10/23 04:34 Oxygen Delivery Method Room Air 12/10/23 04:34 Medical Decision Making MDM Narrative Medical decision making narrative: EKG showing sinus rhythm with a heart rate of [address] elevation or depression The patient CBC shows no leukocytosis chemistry showing acute kidney injury compared to the patient baseline with a lactic acid around 5 Chest x-ray and CAT scan showed no acute pathology Evaluation of the patient's right lower leg ulcer shows a possible dehiscence of the wound and he might need to be evaluated by podiatry when admitted to Patient will be admitted for hydration and observation by , and he is agreeable of the above-mentioned plan Lab Data Labs: Lab Results 12/09/23 12/09/23 12/09/23 Range/Units 12:30 14:30 15:00 WBC 9.3 (4.0-11.0) 10^3/uL RBC 4.76 (4.70-6.10) 10^6/uL Hgb 12.2 L (14.0-18.0) g/dL Hct 39.2 L (42.0-54.0) % MCV 82.4 (80.0-94.0) fL MCH 25.6 L (25.9-34.0) pg MCHC 31.1 (29.9-35.2) g/dL RDW 17.7 H (11.0-15.0) % Plt Count 294 (150-450) 10^3/uL MPV 10.7 (9.5-13.5) fL Neut % (Auto) 72.3 (43.0-75.0) % Lymph % (Auto) 15.7 L (20.5-60.0) % [place] % (Auto) 9.1 (1.7-12.0) % Eos % (Auto) 1.6 (0.9-7.0) % Baso % (Auto) 1.0 (0.2-2.0) % Neut # (Auto) 6.7 H (1.4-6.5) 10^3/uL Lymph # (Auto) 1.5 (1.2-3.8) 10^3/uL [place] # (Auto) 0.9 H (0.3-0.8) 10^3/uL Eos # (Auto) 0.2 (0.0-0.7) 10^3/uL Baso # (Auto) 0.1 (0.0-0.1) 10^3/uL Abs Immat Gran (auto) 0.03 (0.00-0.03) 10^3/uL Imm/Tot Granulo (auto) 0.3 (0.0-0.5) % D-Dimer 3.76 H* (<=0.59) mg/L FEU Sodium 135 L (136-145) mmol/L Potassium 3.8 (3.5-5.1) mmol/L Chloride 99 (98-107) mmol/L Carbon Dioxide 21.7 (21.0-32.0) mmol/L Anion Gap 18.1 BUN 20.0 H (7.0-18.0) mg/dL Creatinine 2.17 H (0.70-1.30) mg/dL Est GFR ( Amer) 38 L (>=60) Est GFR (Non-Af Amer) 31 L (>=60) BUN/Creatinine Ratio 9.2 Glucose 191 H (74-106) mg/dL Lactate 5.3 H* (0.4-2.0) mmol/L Calcium 9.6 (8.5-10.1) mg/dL Magnesium 1.6 L (1.8-2.4) mg/dL Total Bilirubin 0.7 (0.2-1.0) mg/dL AST 8 L (15-37) U/L ALT 13 L (16-63) U/L Alkaline Phosphatase 141 H (46-116) U/L Troponin I High Sens 8.7 (4.0-76.1) pg/mL Total Protein 8.1 (6.4-8.2) g/dL Albumin 3.5 (3.4-5.0) g/dL Globulin 4.6 g/dL Albumin/Globulin Ratio 0.8 Urine Color Yellow (YELLOW) Urine Clarity Clear (CLEAR) Urine pH 6.5 (5.0-9.0) Ur Specific [place] 1.020 (1.005-1.025) Urine Protein Negative (NEG/TRACE) mg/dL Urine Glucose (UA) 500 A (NEGATIVE) mg/dL Urine Ketones Negative (NEGATIVE) mg/dL Urine Occult Blood Negative (NEGATIVE) Urine Nitrite Negative (NEGATIVE) Urine Bilirubin Negative (NEGATIVE) Urine Urobilinogen 0.2 (0.2-1.0) EU/dL Ur Leukocyte Esterase Negative (NEGATIVE) SARS-CoV-2 Ag (CV2AG) Negative (NEGATIVE) 12/09/23 Range/Units 15:31 WBC (4.0-11.0) 10^3/uL RBC (4.70-6.10) 10^6/uL Hgb (14.0-18.0) g/dL Hct (42.0-54.0) % MCV (80.0-94.0) fL MCH (25.9-34.0) pg MCHC (29.9-35.2) g/dL RDW (11.0-15.0) % Plt Count (150-450) 10^3/uL MPV (9.5-13.5) fL Neut % (Auto) (43.0-75.0) % Lymph % (Auto) (20.5-60.0) % [place] % (Auto) (1.7-12.0) % Eos % (Auto) (0.9-7.0) % Baso % (Auto) (0.2-2.0) % Neut # (Auto) (1.4-6.5) 10^3/uL Lymph # (Auto) (1.2-3.8) 10^3/uL [place] # (Auto) (0.3-0.8) 10^3/uL Eos # (Auto) (0.0-0.7) 10^3/uL Baso # (Auto) (0.0-0.1) 10^3/uL Abs Immat Gran (auto) (0.00-0.03) 10^3/uL Imm/Tot Granulo (auto) (0.0-0.5) % D-Dimer (<=0.59) mg/L FEU Sodium (136-145) mmol/L Potassium (3.5-5.1) mmol/L Chloride (98-107) mmol/L Carbon Dioxide (21.0-32.0) mmol/L Anion Gap BUN (7.0-18.0) mg/dL Creatinine (0.70-1.30) mg/dL Est GFR ( Amer) (>=60) Est GFR (Non-Af Amer) (>=60) BUN/Creatinine Ratio Glucose (74-106) mg/dL Lactate 2.9 H* (0.4-2.0) mmol/L Calcium (8.5-10.1) mg/dL Magnesium (1.8-2.4) mg/dL Total Bilirubin (0.2-1.0) mg/dL AST (15-37) U/L ALT (16-63) U/L Alkaline Phosphatase (46-116) U/L Troponin I High Sens (4.0-76.1) pg/mL Total Protein (6.4-8.2) g/dL Albumin (3.4-5.0) g/dL Globulin g/dL Albumin/Globulin Ratio Urine Color (YELLOW) Urine Clarity (CLEAR) Urine pH (5.0-9.0) Ur Specific [place] (1.005-1.025) Urine Protein (NEG/TRACE) mg/dL Urine Glucose (UA) (NEGATIVE) mg/dL Urine Ketones (NEGATIVE) mg/dL Urine Occult Blood (NEGATIVE) Urine Nitrite (NEGATIVE) Urine Bilirubin (NEGATIVE) Urine Urobilinogen (0.2-1.0) EU/dL Ur Leukocyte Esterase (NEGATIVE) SARS-CoV-2 Ag (CV2AG) (NEGATIVE) Discharge Plan Discharge Chief Complaint: Nausea/Vomiting/Diarrhea Clinical Impression: ROEL (acute kidney injury), Intractable nausea, Acidosis, lactic Foot osteomyelitis Qualifiers: Osteomyelitis type: other Laterality: right Qualified Code(s): M86.8X7 - Other osteomyelitis, ankle and foot Patient Disposition: Admitted as Observation Time of Disposition Decision: 16:57 Condition: Good Discharge Date/Time: 12/09/23 17:55
[2023-12-09 15:13] LABS: Internal Control Within Normal Limits; SARS-CoV-2 Ag NEGATIVE (NEGATIVE)
[2023-12-09 15:14] LABS: Bilirubin Urine NEGATIVE (NEGATIVE); Blood Urine NEGATIVE (NEGATIVE); Clarity Urine CLEAR (CLEAR); Color Urine YELLOW (YELLOW); Glucose Urine UA 500 mg/dL (NEGATIVE); Ketones Urine NEGATIVE (NEGATIVE); Leukocyte Esterase Urine NEGATIVE (NEGATIVE); Nitrite Urine NEGATIVE (NEGATIVE); Protein Urine NEGATIVE (NEG/TRACE); Urine Microscopic Indicated NO; Urobilinogen Urine 0.2 EU/dL (0.2-1.0); pH Urine 6.5 (5.0-9.0)
[2023-12-09 16:03] LABS: Lactate/Lactic Acid 2.9 mmol/L (0.4-2.0)
--- NOTE | 2023-12-09 16:57 | ECG_ITS ---
[facility] Test Date: 2023-12-09 Pat Name: MYRA FELIPE Department: Room: - Gender: Male Dot Etcher: : 1965 Requested By: [id number] Order Number: [id number] Reading MD: CABRERA COOK Measurements Intervals [place] Rate: 92 P: 30 [place]: 162 QRS: 93 QRSD: 102 T: 51 QT: 376 QTc: 426 Interpretive Statements 1100 Sinus rhythm 7102 Moderate right axis deviation 8102 Low QRS voltage in chest leads 9120 atypical ECG Compared to ECG 12/09/2023 12:16:36 Right-axis deviation now present Low QRS voltage now present ST (T wave) deviation no longer present Electronically Signed On 12-10-2023 7:17:41 EDT by CABRERA COOK
--- OUTSIDE RECORDS SUMMARY | 2023-12-09 18:15 | XMS_ITS | CCD ---
Author Organization [facility] Care Team Providers Care Scheduling Assistant Name Role Phone Jenaro Lynch Unavailable Unavailable [...] Dolores Feldman Referring Unavailable Syed, Dr. Jenaro iSerra Primary Care Unavailkita Inman II, Dr. Raulito Sierra Referring Unavailable Syed, Dr. Jenaro Sierra Primary Care Unavailkita Inman II, Dr. Raulito Sierra Attending Unavailable DO Jeanro Lynch Primary Care Provider MD Nancy Wilson Emergency Provider [phone] DO Jenaro Lynch Primary Care Provider MD Nancy Wilson Emergency Provider JERARDO Mclaughlin Attending Provider JERARDO Mclaughlin Referring Provider Curt, LINDSEY Hooker Attending Provider Curt, Paula [...] Provider Jenaro Lynch DO Primary Care Provider [phone] RAULITO INMAN Attending Unavailable KUNS, JENARO SIERRA Primary Care Unavailable ROWE, Yeyo Blum Attending [...] Eruption of skin (disorder) [facility] (20 sources) Penicillins; Translations: [Penicillins] Allergy to drug (finding) 11-05-19 14 Anaphylactoid reaction (disorder) [facility] (20 sources) Acetaminophen / oxyCODONE Drug Allergy vomiting [facility] [place] Other (20 sources) tamsulosin; Translations: [TAMSULOSIN] Drug Allergy 07-14-19 21 hives [facility] (20 sources) PENICIILIN Propensity to adverse reactions SWELLING OF AIRWAY [facility] [place] Other (9 sources) Acetaminophen; Translations: [acetaminophen] Drug Allergy 07-14-19 21 Vomiting [facility] (10 sources) oxyCODONE; Translations: [Oxycodone] Drug Allergy 02-08-20 17 Vomiting [facility] (1 source) Penicillins Drug allergy (disorder) 09-23-19 14 [facility] (16 sources) Penicillin G; Translations: [penicillin G benzathine] Drug Allergy [facility] (8 sources) Penicillin Drug Allergy anaphylaxis [facility] [place] Other (1 source) Penicillins Drug allergy (disorder) 07-31-19 24 [facility] (1 source) tamsulosin Drug Allergy 07-31-19 24 [facility] (1 source) Latex Allergy to substance 03-27-20 23 Unknown [facility] (1 source) Penicillins Drug Allergy 03-27-20 23 Anaphylaxis [facility] Work Phone: (4 sources) Isosorbide; Translations: [ISOSORBIDE [...] 1:00am July 14, 2020 12:39pm Start: 10-10-2014 [place] 325 mg-5 mg oral tablet 1 tab(s), [...] tablet Indications: Other forms of angina pectoris ([facility]) TAKE 1 TABLET BY MOUTH EVERY DAY [...] 27, 2023 3:54pm take 2 tablets by [facility] twice daily before mealtime omeprazole OTC [...] BID, # 60 cap(s), Refills(s) 11, Pharmacy: [facility]/pharmacy #[id number], 182, cm, 06/02/23 11:00:00 EST, Height/Length Dosing, 94, kg, 06/02/23 11:00:00 EST, Weight Dosing Start Date: 06/26/23 Status: Ordered Start: 02-14-2023 take 1 capsule by [facility] twice daily tamsulosin 0.4 mg Cap 0.4 mg = 1 cap(s), Oral, BID, # 60 cap(s), Refills(s) 3, Pharmacy: [facility]/pharmacy #[id number], 182, cm, 02/14/23 8:58:00 EDT, Height/Length Dosing, 94, kg, 01/30/23 10:24:00 EDT, Weight Dosing Start Date: 02/14/23 Status: Ordered take 1 capsule by [facility] once daily Tamsulosin HCl - 0.4 MG Oral Capsule TAKE 1 CAPSULE Daily Quantity: 0 Refills: 0 Ordered: 15-Feb-2023 DO [facility] (20 sources) Start: 01-27-2014 Start: 01-27-2014 [facility] as d irected Use as directed. Jan, Active Tiotropium Brohman (Spiriva With Handihaler) 18 mcg capsule, w/inhalation device (4 sources) Start: 07-12-2023 take 1 capsule by inhalation once daily Tiotropium Brohman (Spiriva With Handihaler) 18 mcg capsule, w/inhalation device Active 1 CAP INHALATION Daily July 12, 2023 1:00am puncture 1 cap using device; one dose = 2 inhalations Start: 07-12-2023 take 1 capsule by in halation once daily Tiotropium Brohman (Spiriva With Handihaler) 18 mcg capsule, w/inhalation [...] Ordered Start: 07-04-2022 take 1 tablet by [facility] every twelve hours tiZANidine HCl 4 MG 1 tablet as needed Orally Twice a day Jun, Active take 2 tablets by [facility] at bedtime tiZANidine HCl - 4 [...] procedure, # 2 cap(s), Refills(s) 0, Pharmacy: [facility]/pharmacy #[id number], 182, cm, 01/30/23 10:24:00 EDT, Height/Length [...] take 1 tablet by mouth once daily Olmesartan-[place] chlorothiazide (Benicar Hct) 40-12.5 mg Tablet Discontinued [...] [Coronary atherosclerosis of unspecified type of vessel, creek or graft] Onset: 2 Resolved: 2 Chronic [...] limb due to atherosclerosis; Translations: [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, right leg] [...] sources) Long-term current use of insulin; Translations: [nursing home (current) use of insulin] Episodic Other and [...] Range Facility Outside Operativeon 11-28-19 Outside Operative [id number]#1.00TIFF Normal [facility] Physician Orderon 11-28-2023 Physician Order [id number]#1.00TIFF Normal [facility] Progress Note-Physicianon Progress Note-Physician [id number]#1.00TIFF Normal [facility] BASIC METABOLIC PANLon 11-13 Anion gap [Moles/Vol] 10 mmol/L Normal 5-15 [facility] Comment on above: Performed By: #### C KENDALL CANALES, , [address] ####[facility] ([id number])[address], [place] [address] Calcium [Mass/Vol] 8.8 mg/dL Normal 8.5-10.5 [facility] Comment on above: Performed By: #### C KENDALL CANALES, 61748-1, 2777-1 ####[facility] ([id number])[address], [address], [place] [address] Chloride [Moles/Vol] 99 mmol/L Normal 98-109 [facility] Comment on above: Performed By: #### C ALLY [facility], , 2776-06 ####[facility] ([id number])[address], [address], [place] [address] CO2 [Moles/Vol] 26 mmol/L Normal 22-32 [facility] Comment on above: Performed By: #### C KENDALL CANALES, , 2776-06 ####[facility] ([id number])[address], [address] [place] [address] Creatinine [Mass/Vol] 1.61 mg/dL High 0.60-1.30 [facility] Comment on above: Result Comment: METH OD TRACEABLE TO IDMS STANDARD Performed By: #### KENDALL AHUJA, , 2776-06 ####[facility] ([id number])[address], [address], [place] [address] GFR/1.73 sq M.predicted among non-blacks MDRD (S/P/Bld) [Vol rate/Area] 49 mL/min/{1.73_m2} Low >59 [facility] Comment on above: Result Comment: Reported eGFR is based on the CKD-EPI 2020 equation that does not use a race coefficient. Performed By: #### C KENDALL CANALES, , 2776-06 ####[facility] ([id number])[address] [address] [address] Glucose [Mass/Vol] 184 mg/dL High 65-99 [facility] Comment on above: Performed By: #### KENDALL AHUJA, , 2776-06 ####[facility] ([id number])[address], [address] [place] [address] Potassium [Moles/Vol] 4.0 mmol/L Normal 3.5-5.0 [facility] Comment on above: Performed By: #### C ALLY, [facility], , 2776-06 ####[facility] ([id number])[address] [address], [place] [address] Sodium [Moles/Vol] 135 mmol/L Normal 134-146 [facility] Comment on above: Performed By: #### C ALLY, [facility], , 2776-06 ####[facility] ([id number])[address] [address], [place] [address] Urea nitrogen [Mass/Vol] 23 mg/dL Normal 5-23 [facility] Comment on above: Performed By: #### C ALLY, [facility], , 2776-06 ####[facility] ([id number])[address] [address], [place] [address] COMPLETE BLOOD COUNTon 11-13 Erythrocyte distribution width (RBC) [Ratio] 22.8 % High 11.5-15.0 [facility] Comment on above: Performed By: #### C ALLY, [facility], , 2776-06 ####[facility] ([id number])[address] [address], [place] [address] Hematocrit (Bld) [Volume fraction] 25.1 % Low 39-49 [facility] Comment on above: Performed By: #### C ALLY, [facility], , 2776-06 ####[facility] ([id number])[address] [address], [place] [address] Hemoglobin (Bld) [Mass/Vol] 8.1 g/dL Low 13.0-17.0 [facility] Comment on above: Performed By: #### C ALLY, BMP, , 2776-06 ####[facility] ([id number])[address] [address], [place] [address] MCH (RBC) [Entitic mass] 25.1 pg Low 27-34 [facility] Comment on above: Performed By: #### C ALLY, BMP, , 2776-06 ####[facility] ([id number])[address], [address], [place] [address] MCHC (RBC) [Mass/Vol] 32.4 g/dL Normal 32-36 [facility] Comment on above: Performed By: #### C ALLY, BMP, , 2776-06 ####[facility] ([id number])[address], [address] [address] MCV (RBC) [Entitic vol] 77 fL Low 80-100 [facility] Comment on above: Performed By: #### Snehal CANALES, KENDALL, , 2776-06 ####[facility] ([id number])[address], [address] [place] [place] [address] Platelet mean volume (Bld) [Entitic vol] 8.8 fL Normal 7-12 [facility] Comment on above: Performed By: #### Snehal CANALES, [facility], , 2776-06 ####[facility] ([id number])[address] [address] [place] [address] Platelets (Bld) [#/Vol] 232 10*3/uL Normal 150-450 [facility] Comment on above: Performed By: #### Snehal CANALES, BMP, , 2776-06 ####[facility] ([id number])[address], [address], [place] [address] RBC COUNT 3.25 X10E12/L Low 4.10-5.70 [facility] Comment on above: Performed By: #### Snehal CANALES, BMP, , 2776-06 ####[facility] ([id number])[address], [address], [place] [address] WBC (Bld) [#/Vol] 8.4 10*3/uL Normal 4.0-11.0 [facility] Comment on above: Performed By: #### C ALLY, KENDALL, , 1 ####[facility] ([id number])[address], [address], [place] [address] Glucose Glucometer (BldC) [M ass/Vol]on 11-14-2023 Glucose [Mass/Vol] 173 mg/dL High 65-99 [facility] Glucose [Mass/Vol] 279 mg/dL High 65-99 [facility] Glucose [Mass/Vol] 249 mg/dL High 65-99 [facility] MAGNESIUMon 11-14-2023 Magnesium [Mass/Vol] 2.1 mg/dL Normal 1.8-2.6 [facility] Comment on above: Performed By: #### 1 9123-9 ####[facility] ([id number])[address], [address], [place] [address] Magnesium [Mass/Vol] mg/dL Critically low 1.8-2.6 [facility] Comment on above: Performed By: #### 1 9123-9 ####[facility] ([id number])[address], [address], [place] [address] Magnesium [Mass/Vol] 1.7 mg/dL Low 1.8-2.6 [facility] Comment on above: Performed By: #### C ALLY, KENDALL, , 1 ####[facility] ([id number])[address], [place] [address] PHOSPHORUSon 11-14-2023 Phosphate [Mass/Vol] 3.6 mg/dL Normal 2.4-4.9 [facility] Comment on above: Performed By: #### C ALLY, KENDALL, , 1 ####[facility] ([id number])[address], [address] [place] [address] BASIC METABOLIC PANLon 11-12 Anion gap [Moles/Vol] 10 mmol/L Normal 5-15 [facility] Comment on above: Performed By: #### C ALLY, KENDALL, , 2776-06 ####[facility] ([id number])[address], [address], [place] [address] Calcium [Mass/Vol] 8.9 mg/dL Normal 8.5-10.5 [facility] Comment on above: Performed By: #### Snehal CANALES, KENDALL, , 2776-06 ####[facility] ([id number])[address], [address], [place] [address] Chloride [Moles/Vol] 98 mmol/L Normal 98-109 [facility] Comment on above: Performed By: #### Snehal CANALES, KENDALL, , 2776-06 ####[facility] ([id number])[address] [address], [place] [address] CO2 [Moles/Vol] 27 mmol/L Normal 22-32 [facility] Comment on above: Performed By: #### Snehal CANALES, KENDALL, , 2776-06 ####[facility] ([id number])[address] [address], [place] [address] Creatinine [Mass/Vol] 1.47 mg/dL High 0.60-1.30 [facility] Comment on above: Result Comment: METH OD TRACEABLE TO IDMS STANDARD Performed By: #### KENDALL AHUJA, , 2776-06 ####[facility] ([id number])[address], [address], [place] [address] GFR/1.73 sq M.predicted among non-blacks MDRD (S/P/Bld) [Vol rate/Area] 55 mL/min/{1.73_m2} Low >59 [facility] Comment on above: Result Comment: Reported eGFR is based on the CKD-EPI 2020 equation that does not use a race coefficient. Performed By: #### C ALLY [facility], , 2776-06 ####[facility] ([id number])[address], [address], [place] [address] Glucose [Mass/Vol] 164 mg/dL High 65-99 [facility] Comment on above: Performed By: #### C ALLY, [facility], , 2776-06 ####[facility] ([id number])[address] [address] [place] [address] Potassium [Moles/Vol] 3.8 mmol/L Normal 3.5-5.0 [facility] Comment on above: Performed By: #### C ALLY, [facility], , 2776-06 ####[facility] ([id number])[address] [address], [place] [address] Sodium [Moles/Vol] 135 mmol/L Normal 134-146 [facility] Comment on above: Performed By: #### Snehal CANALES, [facility], , 2776-06 ####[facility] ([id number])[address] [address] [place] [address] Urea nitrogen [Mass/Vol] 26 mg/dL High 5-23 [facility] Comment on above: Performed By: #### C ALLY, [facility], , 2776-06 ####[facility] ([id number])[address] [address] [address] COMPLETE BLOOD COUNTon 11-12 Erythrocyte distribution width (RBC) [Ratio] 23.2 % High 11.5-15.0 [facility] Comment on above: Performed By: #### C ALLY, [facility], , 2776-06 ####[facility] ([id number])[address] [address], [place] [address] Hematocrit (Bld) [Volume fraction] 24.7 % Low 39-49 [facility] Comment on above: Performed By: #### Snehal CANALES, [facility], , 2776-06 ####[facility] ([id number])[address], [address], [place] [address] Hemoglobin (Bld) [Mass/Vol] 8.2 g/dL Low 13.0-17.0 [facility] Comment on above: Performed By: #### C ALLY, [facility], , 2776-06 ####[facility] ([id number])[address], [address], [place] [address] MCH (RBC) [Entitic mass] 25.7 pg Low 27-34 [facility] Comment on above: Performed By: #### Snehal CANALES, [facility], , 2776-06 ####[facility] ([id number])[address], [place] [address] MCHC (RBC) [Mass/Vol] 33.4 g/dL Normal 32-36 [facility] Comment on above: Performed By: #### Snehal CANALES, BMP, , 2776-06 ####[facility] ([id number])[address], [address], [place] [address] MCV (RBC) [Entitic vol] 77 fL Low 80-100 [facility] Comment on above: Performed By: #### Snehal CANALES, BMP, , 2776-06 ####[facility] ([id number])[address], [address] [place] [address] Platelet mean volume (Bld) [Entitic vol] 8.8 fL Normal 7-12 [facility] Comment on above: Performed By: #### Snehal CANALES, BMP, , 2776-06 ####[facility] ([id number])[address], [address], [place] [address] Platelets (Bld) [#/Vol] 207 10*3/uL Normal 150-450 [facility] Comment on above: Performed By: #### C ALLY, KENDALL, , 2776-06 ####[facility] ([id number])[address], [address], [place] [address] RBC COUNT 3.21 X10E12/L Low 4.10-5.70 [facility] Comment on above: Performed By: #### KENDALL AHUJA, , 2776-06 ####[facility] ([id number])[address] [place] [address] WBC (Bld) [#/Vol] 8.1 10*3/uL Normal 4.0-11.0 [facility] Comment on above: Performed By: #### KENDALL AHUJA, , 2776-06 ####[facility] ([id number])[address], [address] [place] [address] Glucose Glucometer (dC) [M ass/Vol]on 11-13-2023 Glucose [Mass/Vol] 230 mg/dL High 65-99 [facility] Glucose [Mass/Vol] 225 mg/dL High 65-99 [facility] Glucose [Mass/Vol] 331 mg/dL High 65-99 [facility] Glucose [Mass/Vol] 190 mg/dL High 65-99 [facility] MAGNESIUMon 11-13-2023 Magnesium [Mass/Vol] 2.1 mg/dL Normal 1.8-2.6 [facility] Comment on above: Performed By: #### Snehal CANALES, KENDALL, , 2776-06 ####[facility] ([id number])[address], [address], [place] [address] PHOSPHORUSon 11-13-2023 Phosphate [Mass/Vol] 3.8 mg/dL Normal 2.4-4.9 [facility] Comment on above: Performed By: #### Snehal CANALES BMP, 76061-5, 2777-1 ####[facility] ([id number])[address], [address] [place] [address] BASIC METABOLIC PANLon 11-11 Anion gap [Moles/Vol] 11 mmol/L Normal 5-15 [facility] Comment on above: Performed By: #### Snehal CANALES, BMP #### [facility] ([id number]) [address], [address] [place] [address] Calcium [Mass/Vol] 9.0 mg/dL Normal 8.5-10.5 [facility] Comment on above: Performed By: #### Snehal CANALES, BMP #### [facility] ([id number]) [address], [address] [place] [address] Chloride [Moles/Vol] 98 mmol/L Normal 98-109 [facility] Comment on above: Performed By: #### Snehal CANALES, BMP #### [facility] ([id number]) [address], [address] [place] [address] CO2 [Moles/Vol] 25 mmol/L Normal 22-32 [facility] Comment on above: Performed By: #### Snehal CANALES, BMP #### [facility] ([id number]) [address], [address] [place] [address] Creatinine [Mass/Vol] 1.40 mg/dL High 0.60-1.30 [facility] Comment on above: Result Comment: METH OD TRACEABLE TO IDMS STANDARD Performed By: #### Snehal CANALES, BMP #### [facility] ([id number]) [address], [address] [place] [address] GFR/1.73 sq M.predicted among non-blacks MDRD (S/P/Bld) [Vol rate/Area] 58 mL/min/{1.73_m2} Low >59 [facility] Comment on above: Result Comment: Reported eGFR is based on the CKD-EPI 2020 equation that does not use a race coefficient. Performed By: #### Snehal CANALES, BMP #### [facility] ([id number]) [address], [address] [place] [address] Glucose [Mass/Vol] 194 mg/dL High 65-99 [facility] Comment on above: Performed By: #### Snehal CANALES, BMP #### [facility] ([id number]) [address], [address] [place] [address] Potassium [Moles/Vol] 4.0 mmol/L Normal 3.5-5.0 [facility] Comment on above: Performed By: #### Snehal CANALES, BMP #### [facility] ([id number]) [address], [address] [place] [address] Sodium [Moles/Vol] 134 mmol/L Normal 134-146 [facility] Comment on above: Performed By: #### Snehal CANALES, BMP #### [facility] ([id number]) [address], [address] [place] [address] Urea nitrogen [Mass/Vol] 23 mg/dL Normal 5-23 [facility] Comment on above: Performed By: #### Snehal CANALES, BMP #### [facility] ([id number]) [address], [address] [place] [address] COMPLETE BLOOD COUNTon 11-11 Erythrocyte distribution width (RBC) [Ratio] 24.1 % High 11.5-15.0 [facility] Comment on above: Performed By: #### Snehal CANALES, BMP #### [facility] ([id number]) [address] [address] [place] [address] Hematocrit (Bld) [Volume fraction] 25.8 % Low 39-49 [facility] Comment on above: Performed By: #### Snehal CANALES, BMP #### [facility] ([id number]) [address], [address] [place] [address] Hemoglobin (Bld) [Mass/Vol] 8.6 g/dL Low 13.0-17.0 [facility] Comment on above: Performed By: #### C ALLY, BMP #### [facility] ([id number]) [address], [address] [place] [address] MCH (RBC) [Entitic mass] 25.7 pg Low 27-34 [facility] Comment on above: Performed By: #### C ALLY, BMP #### [facility] ([id number]) [address], [address] [place] [address] MCHC (RBC) [Mass/Vol] 33.5 g/dL Normal 32-36 [facility] Comment on above: Performed By: #### Snehal CANALES, BMP #### [facility] ([id number]) [address], [address] [place] [address] MCV (RBC) [Entitic vol] 77 fL Low 80-100 [facility] Comment on above: Performed By: #### C ALLY, BMP #### [facility] ([id number]) [address], [address] [place] [address] Platelet mean volume (Bld) [Entitic vol] 9.2 fL Normal 7-12 [facility] Comment on above: Performed By: #### C ALLY, BMP #### [facility] ([id number]) [address] [place] [address] Platelets (Bld) [#/Vol] 185 10*3/uL Normal 150-450 [facility] Comment on above: Performed By: #### C ALLY, BMP #### [facility] ([id number]) [address], [address] [place] [address] RBC COUNT 3.37 X10E12/L Low 4.10-5.70 [facility] Comment on above: Performed By: #### Snehal CANALES, BMP #### [facility] ([id number]) [address] [place] [address] WBC (Bld) [#/Vol] 10.0 10*3/uL Normal 4.0-11.0 [facility] Comment on above: Performed By: #### Snehal CANALES, BMP #### [facility] ([id number]) [address] [place] [address] Glucose Glucometer (BldC) [M ass/Vol]on 11-12-2023 Glucose [Mass/Vol] 230 mg/dL High 65-99 [facility] Glucose [Mass/Vol] 280 mg/dL High 65-99 [facility] Glucose [Mass/Vol] 268 mg/dL High 65-99 [facility] Glucose [Mass/Vol] 220 mg/dL High 65-99 [facility] Glucose [Mass/Vol] 205 mg/dL High 65-99 [facility] MAGNESIUMon 11-12-2023 Magnesium [Mass/Vol] 1.8 mg/dL Normal 1.8-2.6 [facility] Comment on above: Performed By: #### Snehal CANALES, BMP #### [facility] ([id number]) [address], [address] [place] [address] PHOSPHORUSon 11-12-2023 Phosphate [Mass/Vol] 3.8 mg/dL Normal 2.4-4.9 [facility] Comment on above: Performed By: #### Snehal CANALES, BMP #### [facility] ([id number]) [address], [address] [place] [address] BASIC METABOLIC PANLon 11-10 Anion gap [Moles/Vol] 8 mmol/L Normal 5-15 [facility] Comment on above: Performed By: #### Snehal CANALES, BMP #### [facility] ([id number]) [address], [address] [place] [address] Calcium [Mass/Vol] 8.7 mg/dL Normal 8.5-10.5 [facility] Comment on above: Performed By: #### C ALLY, BMP #### [facility] ([id number]) [address], [address] [place] [address] Chloride [Moles/Vol] 99 mmol/L Normal 98-109 [facility] Comment on above: Performed By: #### C ALLY, BMP #### [facility] ([id number]) [address], [address] [place] [address] CO2 [Moles/Vol] 26 mmol/L Normal 22-32 [facility] Comment on above: Performed By: #### Snehal CANALES, BMP #### [facility] ([id number]) [address], [address] [place] [address] Creatinine [Mass/Vol] 1.45 mg/dL High 0.60-1.30 [facility] Comment on above: Result Comment: METH OD TRACEABLE TO IDMS STANDARD Performed By: #### C ALLY, BMP #### [facility] ([id number]) 0 [address] [place] [address] GFR/1.73 sq M.predicted among non-blacks MDRD (S/P/Bld) [Vol rate/Area] 56 mL/min/{1.73_m2} Low >59 [facility] Comment on above: Result Comment: Reported eGFR is based on the CKD-EPI 2020 equation that does not use a race coefficient. Performed By: #### C ALLY, BMP #### [facility] ([id number]) [address] [place] [address] Glucose [Mass/Vol] 153 mg/dL High 65-99 [facility] Comment on above: Performed By: #### C ALLY, BMP #### [facility] ([id number]) [address] [place] [address] Potassium [Moles/Vol] 3.9 mmol/L Normal 3.5-5.0 [facility] Comment on above: Performed By: #### C ALLY, BMP #### [facility] ([id number]) [address] [place] [address] Sodium [Moles/Vol] 133 mmol/L Low 134-146 [facility] Comment on above: Performed By: #### C ALLY, BMP #### [facility] ([id number]) [address] [place] [address] Urea nitrogen [Mass/Vol] 27 mg/dL High 5-23 [facility] Comment on above: Performed By: #### C ALLY, BMP #### [facility] ([id number]) [address] [place] [address] COMPLETE BLOOD COUNTon 11-10 Erythrocyte distribution width (RBC) [Ratio] 24.2 % High 11.5-15.0 [facility] Comment on above: Performed By: #### C ALLY, BMP #### [facility] ([id number]) [address] [place] [address] Hematocrit (Bld) [Volume fraction] 25.1 % Low 39-49 [facility] Comment on above: Performed By: #### C ALLY, BMP #### [facility] ([id number]) [address] [place] [address] Hemoglobin (Bld) [Mass/Vol] 8.2 g/dL Low 13.0-17.0 [facility] Comment on above: Performed By: #### C ALLY, BMP #### [facility] ([id number]) [address] [place] [address] MCH (RBC) [Entitic mass] 25.5 pg Low 27-34 [facility] Comment on above: Performed By: #### C ALLY, BMP #### [facility] ([id number]) [address] [place] [address] MCHC (RBC) [Mass/Vol] 32.7 g/dL Normal 32-36 [facility] Comment on above: Performed By: #### C ALLY, BMP #### [facility] ([id number]) [address] [place] [address] MCV (RBC) [Entitic vol] 78 fL Low 80-100 [facility] Comment on above: Performed By: #### C ALLY, BMP #### [facility] ([id number]) [address] [place] [address] Platelet mean volume (Bld) [Entitic vol] 9.0 fL Normal 7-12 [facility] Comment on above: Performed By: #### C ALLY, BMP #### [facility] ([id number]) [address] [place] [address] Platelets (Bld) [#/Vol] 152 10*3/uL Normal 150-450 [facility] Comment on above: Performed By: #### C ALLY, BMP #### [facility] ([id number]) [address] [place] [address] RBC COUNT 3.22 X10E12/L Low 4.10-5.70 [facility] Comment on above: Performed By: #### C ALLY, BMP #### [facility] ([id number]) [address] [place] [address] WBC (Bld) [#/Vol] 9.8 10*3/uL Normal 4.0-11.0 [facility] Comment on above: Performed By: #### C ALLY, BMP #### [facility] ([id number]) [address] [place] [address] Glucose Glucometer (BldC) [M ass/Vol]on 11-11-2023 Glucose [Mass/Vol] 184 mg/dL High 65-99 [facility] Glucose [Mass/Vol] 179 mg/dL High 65-99 [facility] Glucose [Mass/Vol] 222 mg/dL High 65-99 [facility] Glucose [Mass/Vol] 303 mg/dL High 65-99 [facility] MAGNESIUMon 11-11-2023 Magnesium [Mass/Vol] 2.4 mg/dL Normal 1.8-2.6 [facility] Comment on above: Performed By: #### Snehal CANALES BMP #### [facility] ([id number]) [address] [place] [address] Magnesium [Mass/Vol] 1.9 mg/dL Normal 1.8-2.6 [facility] Comment on above: Performed By: #### Snehal CANALES BMP #### [facility] ([id number]) [address] [place] [address] PHOSPHORUSon 11-11-2023 Phosphate [Mass/Vol] 3.2 mg/dL Normal 2.4-4.9 [facility] Comment on above: Performed By: #### Snehal CANALES BMP #### [facility] ([id number]) [address] [place] [address] BASIC METABOLIC PANLon 11-09 Anion gap [Moles/Vol] 6 mmol/L Normal 5-15 [facility] Comment on above: Performed By: #### KENDALL AHUJA, , [address] ####[facility] ([id number])[address], [place] [address] Calcium [Mass/Vol] 8.5 mg/dL Normal 8.5-10.5 [facility] Comment on above: Performed By: #### KENDALL AHUJA, , 2776-06 ####[facility] ([id number])[address], [place] [address] Chloride [Moles/Vol] 102 mmol/L Normal 98-109 [facility] Comment on above: Performed By: #### C ALLY, KENDALL, , 2776-06 ####[facility] ([id number])[address], [place] [address] CO2 [Moles/Vol] 26 mmol/L Normal 22-32 [facility] Comment on above: Performed By: #### C ALLY, [facility], , 2776-06 ####[facility] ([id number])[address] [address], [place] [address] Creatinine [Mass/Vol] 1.59 mg/dL High 0.60-1.30 [facility] Comment on above: Result Comment: METH OD TRACEABLE TO IDMS STANDARD Performed By: #### C ALLY, [facility], , 2776-06 ####[facility] ([id number])[address] [address] GFR/1.73 sq M.predicted among non-blacks MDRD (S/P/Bld) [Vol rate/Area] 50 mL/min/{1.73_m2} Low >59 [facility] Comment on above: Result Comment: Reported eGFR is based on the CKD-EPI 2020 equation that does not use a race coefficient. Performed By: #### C ALLY, KENDALL, , 2776-06 ####[facility] ([id number])[address] [address], [place] [address] Glucose [Mass/Vol] 145 mg/dL High 65-99 [facility] Comment on above: Performed By: #### Snehal CANALES, KENDALL, , 2776-06 ####[facility] ([id number])[address] [address] [place] [address] Potassium [Moles/Vol] 3.9 mmol/L Normal 3.5-5.0 [facility] Comment on above: Performed By: #### C ALLY, KENDALL, , 2776-06 ####[facility] ([id number])[address] [place] [address] Sodium [Moles/Vol] 134 mmol/L Normal 134-146 [facility] Comment on above: Performed By: #### C ALLY, [facility], , 2776-06 ####[facility] ([id number])[address] [address] Urea nitrogen [Mass/Vol] 23 mg/dL Normal 5-23 [facility] Comment on above: Performed By: #### Snehal CANALES, KENDALL, , 2776-06 ####[facility] ([id number])[address] [address] COMPLETE BLOOD COUNTon 11-09 Erythrocyte distribution width (RBC) [Ratio] 24.9 % High 11.5-15.0 [facility] Comment on above: Performed By: #### Snehal CANALES, KENDALL, , 2776-06 ####[facility] ([id number])[address] [address] Hematocrit (Bld) [Volume fraction] 24.5 % Low 39-49 [facility] Comment on above: Performed By: #### Snehal CANALES, BMP, , 2776-06 ####[facility] ([id number])[address] [address] Hemoglobin (Bld) [Mass/Vol] 7.9 g/dL Low 13.0-17.0 [facility] Comment on above: Performed By: #### Snehal CANALES, BMP, , 2776-06 ####[facility] ([id number])[address] [place] [address] MCH (RBC) [Entitic mass] 25.4 pg Low 27-34 [facility] Comment on above: Performed By: #### C KENDALL CANALES, , 2776-06 ####[facility] ([id number])[address] [place] [address] MCHC (RBC) [Mass/Vol] 32.4 g/dL Normal 32-36 [facility] Comment on above: Performed By: #### C ALLY, KENDALL, , 2776-06 ####[facility] ([id number])[address], [place] [address] MCV (RBC) [Entitic vol] 78 fL Low 80-100 [facility] Comment on above: Performed By: #### KENDALL AHUJA, , 2776-06 ####[facility] ([id number])[address] [address], [place] [address] Platelet mean volume (Bld) [Entitic vol] 9.1 fL Normal 7-12 [facility] Comment on above: Performed By: #### KENDALL AHUJA, , 2776-06 ####[facility] ([id number])[address], [place] [address] Platelets (Bld) [#/Vol] 142 10*3/uL Low 150-450 [facility] Comment on above: Performed By: #### Snehal CANALES, KENDALL, , 2776-06 ####[facility] ([id number])[address] [place] [address] RBC COUNT 3.14 X10E12/L Low 4.10-5.70 [facility] Comment on above: Performed By: #### Snehal CANALES BMP, , 2776-06 ####[facility] ([id number])[address], [place] [address] WBC (Bld) [#/Vol] 9.7 10*3/uL Normal 4.0-11.0 [facility] Comment on above: Performed By: #### KENDALL AHUJA, , 2776-06 ####[facility] ([id number])[address], [place] [address] Glucose Glucometer (BldC) [M ass/Vol]on 11-10-2023 Glucose [Mass/Vol] 168 mg/dL High 65-99 [facility] Glucose [Mass/Vol] 245 mg/dL High 65-99 [facility] Glucose [Mass/Vol] 155 mg/dL High 65-99 [facility] Glucose [Mass/Vol] 153 mg/dL High 65-99 [facility] MAGNESIUMon 11-10-2023 Magnesium [Mass/Vol] 2.2 mg/dL Normal 1.8-2.6 [facility] Comment on above: Performed By: #### KENDALL AHUJA #### [facility] ([id number]) [address] [place] [address] Magnesium [Mass/Vol] 1.8 mg/dL Normal 1.8-2.6 [facility] Comment on above: Performed By: #### KENDALL AHUJA, , 2776-06 ####[facility] ([id number])[address] [place] [address] PHOSPHORUSon 11-10-2023 Phosphate [Mass/Vol] 3.1 mg/dL Normal 2.4-4.9 [facility] Comment on above: Performed By: #### KENDALL AHUJA, , 2776-06 ####[facility] ([id number])[address], [place] [address] BASIC METABOLIC PANLon 11-08 Anion gap [Moles/Vol] 9 mmol/L Normal 5-15 [facility] Comment on above: Performed By: #### C BC, 2639-3, BMP, 2156-6, 10293-5, 2776-1 ####[facility] ([id number])[address] [place] [address] Calcium [Mass/Vol] 8.4 mg/dL Low 8.5-10.5 [facility] Comment on above: Performed By: #### Snehal CANALES, 2639-3, BMP, 2156-6, 12231-6, 2776-1 ####[facility] ([id number])[address] [place] [address] Chloride [Moles/Vol] 104 mmol/L Normal 98-109 [facility] Comment on above: Performed By: #### Snehal CANALES, 2639-3, BMP, 2156-6, , 2776-1 ####[facility] ([id number])[address], [place] [address] CO2 [Moles/Vol] 25 mmol/L Normal 22-32 [facility] Comment on above: Performed By: #### Snehal CANALES, 2639-3, BMP, 2156-6, 02785-5, 2776-1 ####[facility] ([id number])[address] [place] [place] [address] Creatinine [Mass/Vol] 1.35 mg/dL High 0.60-1.30 [facility] Comment on above: Result Comment: METH OD TRACEABLE TO IDMS STANDARD Performed By: #### Snehal BC, 2639-3, BMP, 2156-6, 70421-3, 2776-1 ####[facility] ([id number])[address], [place] [address] GFR/1.73 sq M.predicted among non-blacks MDRD (S/P/Bld) [Vol rate/Area] 61 mL/min/{1.73_m2} Normal >59 [facility] Comment on above: Result Comment: Reported eGFR is based on the CKD-EPI 2020 equation that does not use a race coefficient. Performed By: #### C BC, 2639-3, BMP, 2157-6, 41597-3, 2776- ####[facility] ([id number])[address], [place] [address] Glucose [Mass/Vol] 217 mg/dL High 65-99 [facility] Comment on above: Performed By: #### C ALLY, 2639-3, BMP, 2156-6, 39067-3, 2776- ####[facility] ([id number])[address], [place] [address] Potassium [Moles/Vol] 4.2 mmol/L Normal 3.5-5.0 [facility] Comment on above: Performed By: #### Snehal CANALES, 2639-3, BMP, 2156-6, 01501-9, 2776-1 ####[facility] ([id number])[address] [address], [place] [address] Sodium [Moles/Vol] 138 mmol/L Normal 134-146 [facility] Comment on above: Performed By: #### Snehal BC, 2639-3, BMP, 2156-6, 37096-5, 2776-1 ####[facility] ([id number])[address] [address], [place] [address] Urea nitrogen [Mass/Vol] 23 mg/dL Normal 5-23 [facility] Comment on above: Performed By: #### C BC, 2639-3, BMP, 215-6, 52573-0, 2776-1 ####[facility] ([id number])[address], [place] [address] CK [Catalytic activity/Vol]o n 11-09-2023 CPK 44 U/L Normal 24-195 [facility] Comment on above: Performed By: #### 2 157-6, 2638-3 ####[facility] ([id number])[address], [place] [address] CPK 30 U/L Normal 24-195 [facility] Comment on above: Performed By: #### C BC, 2639-3, BMP, 2156-11, , 1 ####[facility] ([id number])[address] [place] [address] COMPLETE BLOOD COUNTon 11-08 Erythrocyte distribution width (RBC) [Ratio] 24.9 % High 11.5-15.0 [facility] Comment on above: Performed By: #### C ALLY, 2638-3, BMP, 2156-11, , 2776-06 ####[facility] ([id number])[address], [place] [address] Hematocrit (Bld) [Volume fraction] 26.8 % Low 39-49 [facility] Comment on above: Performed By: #### C BC, 2638-3, BMP, 2156-11, , 1 ####[facility] ([id number])[address] [place] [address] Hemoglobin (Bld) [Mass/Vol] 8.7 g/dL Low 13.0-17.0 [facility] Comment on above: Performed By: #### C BC, 9-3, BMP, 2156-11, , 2776-06 ####[facility] ([id number])[address] [place] [address] MCH (RBC) [Entitic mass] 24.8 pg Low 27-34 [facility] Comment on above: Performed By: #### C BC, 2639-3, BMP, 2156-6, 58969-9, 2776- ####[facility] ([id number])[address] [place] [address] MCHC (RBC) [Mass/Vol] 32.6 g/dL Normal 32-36 [facility] Comment on above: Performed By: #### Snehal CANALES, 2639-3, BMP, 2156-6, 83727-4, 2776- ####[facility] ([id number])[address] [place] [address] MCV (RBC) [Entitic vol] 76 fL Low 80-100 [facility] Comment on above: Performed By: #### Snehal CANALES, 2639-3, BMP, 2156-, 47593-3, 2776- ####[facility] ([id number])[address] [place] [address] Platelet mean volume (Bld) [Entitic vol] 9.3 fL Normal 7-12 [facility] Comment on above: Performed By: #### Snehal CANALES, 2639-3, BMP, 2156-, , 2776-06 ####[facility] ([id number])[address] [address] [place] [address] Platelets (Bld) [#/Vol] 184 10*3/uL Normal 150-450 [facility] Comment on above: Performed By: #### Snehal BC, 2639-3, BMP, 2156-6, 56926-9, 2776- ####[facility] ([id number])[address] [address] [place] [address] RBC COUNT 3.53 X10E12/L Low 4.10-5.70 [facility] Comment on above: Performed By: #### Snehal CANALES, 2639-3, BMP, 2156-6, , 2776-1 ####[facility] ([id number])[address] [place] [address] WBC (Bld) [#/Vol] 11.0 10*3/uL Normal 4.0-11.0 [facility] Comment on above: Performed By: #### C ALLY, 2639-3, BMP, 2156-11, , 2776-1 ####[facility] ([id number])[address] [address] [place] [address] Glucose Glucometer (BldC) [M ass/Vol]on 11-09-2023 Glucose [Mass/Vol] 243 mg/dL High 65-99 [facility] Glucose [Mass/Vol] 184 mg/dL High 65-99 [facility] Glucose [Mass/Vol] 199 mg/dL High 65-99 [facility] Glucose [Mass/Vol] 218 mg/dL High 65-99 [facility] Heparin unfractionated Chrom ogenic method Qn (PPP)on 11-09-2023 ANTI XA UFH 0.15 IU/mL Low 0.30-0.70 [facility] Comment on above: Result Comment: Opti mal time for testing is 6 hrs post dosage This test is specific for monitoring patients on UFH, and is not recommended for use with other Anti-Xa medications. Performed By: #### 3 274-8 ####[facility] ([id number])[address] [address] [place] [address] MAGNESIUMon 11-09-2023 Magnesium [Mass/Vol] 2.2 mg/dL Normal 1.8-2.6 [facility] Comment on above: Performed By: #### C BC, 2639-3, BMP, 2156-11, , 1 ####[facility] ([id number])[address] [place] [address] Myoglobin [Mass/Vol]on 11-08 SERUM MYOGLOBIN 97.7 ng/mL Normal 17.4-105.7 [facility] Comment on above: Performed By: #### 2 157-6, 2639-3 ####[facility] ([id number])[address], [place] [address] SERUM MYOGLOBIN 51.7 ng/mL Normal 17.4-105.7 [facility] Comment on above: Performed By: #### C BC, 2639-3, BMP, 2156-11, 05984-5, 2776-1 ####[facility] ([id number])[address] [address] PHOSPHORUSon 11-09-2023 Phosphate [Mass/Vol] 4.4 mg/dL Normal 2.4-4.9 [facility] Comment on above: Performed By: #### C BC, 2639-3, BMP, 2156-11, , 2776-1 ####[facility] ([id number])[address] [place] [address] BASIC METABOLIC PANLon 11-07 Anion gap [Moles/Vol] 9 mmol/L Normal 5-15 [facility] Comment on above: Performed By: #### P INR #### [facility] ([id number]) [address] [place] [address] Calcium [Mass/Vol] 8.4 mg/dL Low 8.5-10.5 [facility] Comment on above: Performed By: #### P INR #### [facility] ([id number]) [address] [place] [address] Chloride [Moles/Vol] 106 mmol/L Normal 98-109 [facility] Comment on above: Performed By: #### P INR #### [facility] ([id number]) [address] [place] [address] CO2 [Moles/Vol] 24 mmol/L Normal 22-32 [facility] Comment on above: Performed By: #### P INR #### [facility] ([id number]) [address] [place] [address] Creatinine [Mass/Vol] 1.30 mg/dL Normal 0.60-1.30 [facility] Comment on above: Result Comment: METH OD TRACEABLE TO IDMS STANDARD Performed By: #### P INR #### [facility] ([id number]) [address] [place] [address] GFR/1.73 sq M.predicted among non-blacks MDRD (S/P/Bld) [Vol rate/Area] 64 mL/min/{1.73_m2} Normal >59 [facility] Comment on above: Result Comment: Reported eGFR is based on the CKD-EPI 2020 equation that does not use a race coefficient. Performed By: #### P INR #### [facility] ([id number]) [address] [place] [address] Glucose [Mass/Vol] 163 mg/dL High 65-99 [facility] Comment on above: Performed By: #### P INR #### [facility] ([id number]) [address] [place] [address] Potassium [Moles/Vol] 4.1 mmol/L Normal 3.5-5.0 [facility] Comment on above: Performed By: #### P INR #### [facility] ([id number]) [address] [place] [address] Sodium [Moles/Vol] 139 mmol/L Normal 134-146 [facility] Comment on above: Performed By: #### P INR #### [facility] ([id number]) [address] [place] [address] Urea nitrogen [Mass/Vol] 23 mg/dL Normal 5-23 [facility] Comment on above: Performed By: #### P INR #### [facility] ([id number]) [address] [place] [address] Anion gap [Moles/Vol] 9 mmol/L Normal 5-15 [facility] Comment on above: Performed By: #### C BC, BMP #### [facility] ([id number]) [address] [place] [address] Calcium [Mass/Vol] 8.8 mg/dL Normal 8.5-10.5 [facility] Comment on above: Performed By: #### C BC, BMP #### [facility] ([id number]) [address] [place] [address] Chloride [Moles/Vol] 104 mmol/L Normal 98-109 [facility] Comment on above: Performed By: #### C BC, BMP #### [facility] ([id number]) [address] [place] [address] CO2 [Moles/Vol] 25 mmol/L Normal 22-32 [facility] Comment on above: Performed By: #### C BC, BMP #### [facility] ([id number]) [address] [place] [address] Creatinine [Mass/Vol] 1.70 mg/dL High 0.60-1.30 [facility] Comment on above: Result Comment: METH OD TRACEABLE TO IDMS STANDARD Performed By: #### C BC, BMP #### [facility] ([id number]) [address] [place] [address] GFR/1.73 sq M.predicted among non-blacks MDRD (S/P/Bld) [Vol rate/Area] 46 mL/min/{1.73_m2} Low >59 [facility] Comment on above: Result Comment: Reported eGFR is based on the CKD-EPI 2020 equation that does not use a race coefficient. Performed By: #### C ALLY, BMP #### [facility] ([id number]) [address], [address] [place] [address] Glucose [Mass/Vol] 111 mg/dL High 65-99 [facility] Comment on above: Performed By: #### C BC, BMP #### [facility] ([id number]) [address] [place] [address] Potassium [Moles/Vol] 3.8 mmol/L Normal 3.5-5.0 [facility] Comment on above: Performed By: #### C ALLY, BMP #### [facility] ([id number]) [address] [place] [address] Sodium [Moles/Vol] 138 mmol/L Normal 134-146 [facility] Comment on above: Performed By: #### C ALLY, BMP #### [facility] ([id number]) [address], [address] [place] [address] Urea nitrogen [Mass/Vol] 28 mg/dL High 5-23 [facility] Comment on above: Performed By: #### C ALLY, BMP #### [facility] ([id number]) [address], [address] [place] [address] CK [Catalytic activity/Vol]o n 11-08-2023 CPK 26 U/L Normal 24-195 [facility] Comment on above: Performed By: #### P INR #### [facility] ([id number]) [address] [place] [address] COMPLETE BLOOD COUNTon 11-07 Erythrocyte distribution width (RBC) [Ratio] 24.8 % High 11.5-15.0 [facility] Comment on above: Performed By: #### P INR #### [facility] ([id number]) [address] [place] [address] Hematocrit (Bld) [Volume fraction] 29.3 % Low 39-49 [facility] Comment on above: Performed By: #### P INR #### [facility] ([id number]) [address] [address] [place] [address] Hemoglobin (Bld) [Mass/Vol] 9.6 g/dL Low 13.0-17.0 [facility] Comment on above: Performed By: #### P INR #### [facility] ([id number]) [address] [address] [place] [address] MCH (RBC) [Entitic mass] 24.9 pg Low 27-34 [facility] Comment on above: Performed By: #### P INR #### [facility] ([id number]) [address] [address] [place] [address] MCHC (RBC) [Mass/Vol] 32.7 g/dL Normal 32-36 [facility] Comment on above: Performed By: #### P INR #### [facility] ([id number]) [address] [address] [place] [address] MCV (RBC) [Entitic vol] 76 fL Low 80-100 [facility] Comment on above: Performed By: #### P INR #### [facility] ([id number]) [address] [address] [place] [address] Platelet mean volume (Bld) [Entitic vol] 8.7 fL Normal 7-12 [facility] Comment on above: Performed By: #### P INR #### [facility] ([id number]) [address] [address] [place] [address] Platelets (Bld) [#/Vol] 169 10*3/uL Normal 150-450 [facility] Comment on above: Performed By: #### P INR #### [facility] ([id number]) [address], [address] [place] [address] RBC COUNT 3.85 X10E12/L Low 4.10-5.70 [facility] Comment on above: Performed By: #### P INR #### [facility] ([id number]) [address], [address] [place] [address] WBC (Bld) [#/Vol] 13.5 10*3/uL High 4.0-11.0 [facility] Comment on above: Performed By: #### P INR #### [facility] ([id number]) [address], [address] [place] [address] Erythrocyte distribution width (RBC) [Ratio] 25.2 % High 11.5-15.0 [facility] Comment on above: Performed By: #### C BC, BMP #### [facility] ([id number]) [address], [address] [place] [address] Hematocrit (Bld) [Volume fraction] 33.0 % Low 39-49 [facility] Comment on above: Performed By: #### C BC, BMP #### [facility] ([id number]) [address], [address] [place] [address] Hemoglobin (Bld) [Mass/Vol] 10.8 g/dL Low 13.0-17.0 [facility] Comment on above: Performed By: #### C BC, BMP #### [facility] ([id number]) [address], [address] [place] [address] MCH (RBC) [Entitic mass] 25.0 pg Low 27-34 [facility] Comment on above: Performed By: #### C BC, BMP #### [facility] ([id number]) [address], [address] [place] [address] MCHC (RBC) [Mass/Vol] 32.8 g/dL Normal 32-36 [facility] Comment on above: Performed By: #### C ALLY, BMP #### [facility] ([id number]) [address], [address] [place] [address] MCV (RBC) [Entitic vol] 76 fL Low 80-100 [facility] Comment on above: Performed By: #### C ALLY, BMP #### [facility] ([id number]) [address], [address] [place] [address] Platelet mean volume (Bld) [Entitic vol] 8.8 fL Normal 7-12 [facility] Comment on above: Performed By: #### C ALLY, BMP #### [facility] ([id number]) [address] [place] [address] Platelets (Bld) [#/Vol] 172 10*3/uL Normal 150-450 [facility] Comment on above: Performed By: #### Snehal CANALES, BMP #### [facility] ([id number]) [address] [place] [address] RBC COUNT 4.33 X10E12/L Normal 4.10-5.70 [facility] Comment on above: Performed By: #### Snehal CANALES, BMP #### [facility] ([id number]) [address] [place] [address] WBC (Bld) [#/Vol] 9.3 10*3/uL Normal 4.0-11.0 [facility] Comment on above: Performed By: #### Snehal CANALES, BMP #### [facility] ([id number]) [address], [address] [place] [address] Glucose Glucometer (BldC) [M ass/Vol]on 11-08-2023 Glucose [Mass/Vol] 162 mg/dL High 65-99 [facility] Glucose [Mass/Vol] 96 mg/dL Normal 65-99 [facility] Glucose [Mass/Vol] 142 mg/dL High 65-99 [facility] Glucose [Mass/Vol] 114 mg/dL High 65-99 [facility] Lactate (P ekaterina) [Moles/Vol]o n 11-08-2023 LACTATE W/REFLEX 1.0 mmol/L Normal 0.4-2.0 [facility] Comment on above: Result Comment: Result did not trigger repeat Lactate, re-order if needed. Performed By: #### P INR #### [facility] ([id number]) [address], [address] [place] [address] MAGNESIUMon 11-08-2023 Magnesium [Mass/Vol] 1.7 mg/dL Low 1.8-2.6 [facility] Comment on above: Performed By: #### P INR #### [facility] ([id number]) [address], [address] [place] [address] Myoglobin [Mass/Vol]on 11-07 SERUM MYOGLOBIN 33.1 ng/mL Normal 17.4-105.7 [facility] Comment on above: Performed By: #### P INR #### [facility] ([id number]) [address], [address] [place] [address] PHOSPHORUSon 11-08-2023 Phosphate [Mass/Vol] 4.0 mg/dL Normal 2.4-4.9 [facility] Comment on above: Performed By: #### P INR #### [facility] ([id number]) [address], [address] [place] [address] PROTIME AND INRon 11-08-2023 INR Coag (PPP) [Relative time] 1.3 {INR} High 0.8-1.1 [facility] Comment on above: Performed By: #### P INR #### [facility] ([id number]) [address], [address] [place] [address] PT Coag (PPP) [Time] 14.7 s High 9.8-13.2 [facility] Comment on above: Performed By: #### P INR #### [facility] ([id number]) [address] [place] [address] RAPID CARDIACon 11-08-2023 COURTNEY'S TEST Normal [facility] Comment on above: Performed By: #### A FAB5 #### [facility] ([id number]) [address] [place] [address] Base excess Calc (Bld) [Moles/Vol] 0.1 mmol/L Normal 0.0-2.0 [facility] Comment on above: Performed By: #### A FAB5 #### [facility] ([id number]) [address] [place] [address] Body temperature 98.6 [degF] Normal 37.0 [facility] Comment on above: Performed By: #### A FAB5 #### [facility] ([id number]) [address] [place] [address] Glucose [Mass/Vol] 117 mg/dL High 65-99 [facility] Comment on above: Performed By: #### A FAB5 #### [facility] ([id number]) [address] [place] [address] HCO3 (Bld) [Moles/Vol] 24.8 mmol/L Normal 22-26 [facility] Comment on above: Performed By: #### A FAB5 #### [facility] ([id number]) [address] [place] [address] Hematocrit (Bld) [Volume fraction] 31 % Low 39-49 [facility] Comment on above: Performed By: #### A FAB5 #### [facility] ([id number]) [address] [place] [address] Hemoglobin (Bld) [Mass/Vol] 10.2 g/dL Low 13.0-17.0 [facility] Comment on above: Performed By: #### A FAB5 #### [facility] ([id number]) [address] [place] [address] INSP. O2 CONC. 100 % Normal [facility] Comment on above: Performed By: #### A FAB5 #### [facility] ([id number]) [address] [place] [address] IONIZED CALCIUM 4.8 mg/dL Normal 4.5-5.3 [facility] Comment on above: Performed By: #### A FAB5 #### [facility] ([id number]) [address] [place] [address] Oxygen (Bld) [Partial pressure] 167 mm[Hg] High 80-100 [facility] Comment on above: Performed By: #### A FAB5 #### [facility] ([id number]) [address] [place] [address] Oxygen saturation in Blood 100.8 % Normal >90 [facility] Comment on above: Performed By: #### A FAB5 #### [facility] ([id number]) [address] [place] [address] PCO2 39.7 MMHG Normal 35-45 [facility] Comment on above: Performed By: #### A FAB5 #### [facility] ([id number]) [address] [place] [address] pH (Bld) 7.404 [pH] Normal 7.350-7.45 0 [facility] Comment on above: Performed By: #### A FAB5 #### [facility] ([id number]) [address] [place] [address] Potassium [Moles/Vol] 3.8 mmol/L Normal 3.5-5.0 [facility] Comment on above: Performed By: #### A FAB5 #### [facility] ([id number]) [address] [place] [address] SAMPLE SITE KECIA Normal [facility] Comment on above: Performed By: #### A FAB5 #### [facility] ([id number]) [address] [place] [address] SAMPLE TYPE Arterial Normal [facility] Comment on above: Performed By: #### A FAB5 #### [facility] ([id number]) [address] [place] [address] RAPID CARDIAC W/ NAon 2023 COURTNEY'S TEST Normal [facility] Comment on above: Performed By: #### P INR #### [facility] ([id number]) [address], [address] [place] [address] Base excess Calc (Bld) [Moles/Vol] 0.2 mmol/L Normal 0.0-2.0 [facility] Comment on above: Performed By: #### P INR #### [facility] ([id number]) [address], [address] [place] [address] Body temperature 98.6 [degF] Normal 37.0 [facility] Comment on above: Performed By: #### P INR #### [facility] ([id number]) [address] [place] [address] Glucose [Mass/Vol] 125 mg/dL High 65-99 [facility] Comment on above: Performed By: #### P INR #### [facility] ([id number]) [address] [place] [address] HCO3 (Bld) [Moles/Vol] 25.3 mmol/L Normal 22-26 [facility] Comment on above: Performed By: #### P INR #### [facility] ([id number]) [address], [address] [place] [address] Hematocrit (Bld) [Volume fraction] 31 % Low 39-49 [facility] Comment on above: Performed By: #### P INR #### [facility] ([id number]) [address], [address] [place] [address] Hemoglobin (Bld) [Mass/Vol] 10.0 g/dL Low 13.0-17.0 [facility] Comment on above: Performed By: #### P INR #### [facility] ([id number]) [address], [address] [place] [address] INSP. O2 CONC. 50 % Normal [facility] Comment on above: Performed By: #### P INR #### [facility] ([id number]) [address] [place] [address] IONIZED CALCIUM 4.7 mg/dL Normal 4.5-5.3 [facility] Comment on above: Performed By: #### P INR #### [facility] ([id number]) [address], [address] [place] [address] Oxygen (Bld) [Partial pressure] 131 mm[Hg] High 80-100 [facility] Comment on above: Performed By: #### P INR #### [facility] ([id number]) [address] [place] [address] Oxygen saturation in Blood 99.9 % Normal >90 [facility] Comment on above: Performed By: #### P INR #### [facility] ([id number]) [address] [place] [address] PCO2 42.7 MMHG Normal 35-45 [facility] Comment on above: Performed By: #### P INR #### [facility] ([id number]) [address], [address] [place] [address] pH (Bld) 7.381 [pH] Normal 7.350-7.45 0 [facility] Comment on above: Performed By: #### P INR #### [facility] ([id number]) [address] [place] [address] Potassium [Moles/Vol] 3.7 mmol/L Normal 3.5-5.0 [facility] Comment on above: Performed By: #### P INR #### [facility] ([id number]) [address] [place] [address] SAMPLE SITE KECIA Normal [facility] Comment on above: Performed By: #### P INR #### [facility] ([id number]) [address] [place] [address] SAMPLE TYPE Arterial Normal [facility] Comment on above: Performed By: #### P INR #### [facility] ([id number]) [address] [place] [address] Sodium [Moles/Vol] 139 mmol/L Normal 134-146 [facility] Comment on above: Performed By: #### P INR #### [facility] ([id number]) [address] [place] [address] aPTT Coag (PPP) [Time]on aPTT Coag (Bld) [Time] 30 s Normal 26-37 [facility] Comment on above: Performed By: #### P INR #### [facility] ([id number]) [address] [place] [address] Glucose Glucometer (BldC) [M ass/Vol]on 11-07-2023 Glucose [Mass/Vol] 150 mg/dL High 65-99 [facility] Glucose [Mass/Vol] 58 mg/dL Low 65-99 [facility] POC [id number] 11-07-2023 Chloride [Moles/Vol] 98 mmol/L Normal 98-109 [facility] Comment on above: Performed By: #### I ELGBC #### [facility] ([id number]) [address] [place] [address] CO2 [Moles/Vol] 31 mmol/L Normal 22-32 [facility] Comment on above: Performed By: #### I ELGBC #### [facility] ([id number]) [address] [place] [address] Creatinine [Mass/Vol] 1.9 mg/dL High 0.7-1.2 [facility] Comment on above: Result Comment: METH OD TRACEABLE TO IDMS STANDARD Performed By: #### I [facility] #### [facility] ([id number]) [address] [place] [address] GFR/1.73 sq M.predicted among non-blacks MDRD (S/P/Bld) [Vol rate/Area] 40 mL/min/{1.73_m2} Low >59 [facility] Comment on above: Result Comment: Reported eGFR is based on the CKD-EPI 1 equation that does not use a race coefficient. Performed By: #### I [facility] #### [facility] ([id number]) [address] [place] [address] Glucose [Mass/Vol] 72 mg/dL Normal 65-99 [facility] Comment on above: Performed By: #### I [facility] #### [facility] ([id number]) [address] [place] [address] Potassium [Moles/Vol] 3.6 mmol/L Normal 3.5-5.0 [facility] Comment on above: Performed By: #### I ELGBC #### [facility] ([id number]) [address] [place] [address] Sodium [Moles/Vol] 139 mmol/L Normal 134-146 [facility] Comment on above: Performed By: #### I ELGB #### [facility] ([id number]) [address] [place] [address] Urea nitrogen [Mass/Vol] 31 mg/dL High 6-23 [facility] Comment on above: Performed By: #### I [facility] #### [facility] ([id number]) [address] [place] [address] PROTIME AND INRon 11-07-2023 INR Coag (PPP) [Relative time] 1.3 {INR} High 0.8-1.1 [facility] Comment on above: Performed By: #### P INR #### [facility] ([id number]) [address], [address] [place] [address] PT Coag (PPP) [Time] 14.5 s High 9.8-13.2 [facility] Comment on above: Performed By: #### P INR #### [facility] ([id number]) [address] [place] [address] ECG 12 Leadon 10-24-2023 [facility] Work Phone: Consent for Treatmenton 10-04 Consent for Treatment [id number]#1.00TIFF Normal [facility] V[facility] Office/Cl inic Noteon [...] 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 Normal [facility] Comment on above: Result Comment: Elec [...] MD Transcribed by: HASEEB Technologist: TARAN Chatman [facility] CHEMISTRYOrdered By: SYSTEM SYSTEM on [...] 370 Contrast amount in ml's: 150 Normal [facility] Consent for Treatmenton 10-03 Consent for Treatment [id number]#1.00TIFF Normal [facility] Creatinineon 10-19-2023 Creatinine [Mass/Vol] 1.6 mg/dL High 0.5-1.3 [facility] Comment on above: Performed By: #### [id number] #### [facility] [address] [place] [address] Physician Orderon 10-19-2023 Physician Order [id number]#1.00TIFF Normal [facility] eGFRon 10-19-2023 eGFR 50 mL/min/1.73 m2 Low >=59 [facility] Comment on above: Order Comment: Order added by Discern Expert. Performed By: #### 1 [id number] #### [facility] [address] [place] [address] Outside Progress Noteon 10-03 Outside Progress Note [id number]#1.00TIFF Normal [facility] Physician Orderon 10-18-2023 Physician Order [id number]#1.00TIF F Normal [facility] Physician Order [id number]#1.00TIFF Normal [facility] Basophils Auto (Bld) [#/Vol] on 10-06-2023 Basophils (Bld) [#/Vol] 0.0 10 3/uL 0.0-0.1 [facility] Basophils/100 WBC Auto (Bld) on 10-06-2023 Basophils/100 WBC (Bld) 0.3 % 0.2-2.0 [facility] Eosinophils/100 WBC Auto (Bl d)on 10-06-2023 Eosinophils/100 WBC (Bld) 1.9 % 0.9-7.0 [facility] Erythrocyte distribution wid th Auto (RBC) [Ratio]on 10-06-2023 Erythrocyte distribution width (RBC) [Ratio] 19.9 % 11.0-15.0 [facility] Estimated glomerular filtrat ion rate (GFR) non- Americanon 10-06-2023 GFR/1.73 sq M.predicted among non-blacks MDRD (S/P/Bld) [Vol rate/Area] 42 mL/min/{1.73_m2} >=60 [facility] Globulin Calc (S) [Mass/Vol] on 10-06-2023 Globulin (S) [Mass/Vol] 4.3 g/dL [facility] Hematocrit Auto (Bld) [Volum e fraction]on 10-06-2023 Hematocrit (Bld) [Volume fraction] 28.3 % 42.0-54.0 [facility] Hemoglobin [Mass/volume] in Bloodon 10-06-2023 Hemoglobin (Bld) [Mass/Vol] 8.4 g/dL 14.0-18.0 [facility] - Chemistry and C hemistry - challengeon 10-06-2023 Albumin [Mass/Vol] 2.1 g/dL 3.4-5.0 [facility] ALP [Catalytic activity/Vol] 133 U/L 46-116 [facility] ALT [Catalytic activity/Vol] 18 U/L 16-63 [facility] AST [Catalytic activity/Vol] 20 U/L 15-37 [facility] Bilirubin [Mass/Vol] 0.3 mg/dL 0.2-1.0 [facility] Calcium [Mass/Vol] 9.4 mg/dL 8.5-10.1 [facility] Chloride [Moles/Vol] 103 mmol/L 98-107 [facility] CO2 [Moles/Vol] 23.7 mmol/L 21.0-32.0 [facility] Creatinine [Mass/Vol] 1.67 mg/dL 0.70-1.30 [facility] GFR/1.73 sq M.predicted MDRD (S/P/Bld) [Vol rate/Area] 52 mL/min/{1.73_m2} >=60 [facility] Glucose [Mass/Vol] 91 mg/dL 74-106 [facility] Magnesium [Mass/Vol] 1.6 mg/dL 1.8-2.4 [facility] Potassium [Moles/Vol] 4.8 mmol/L 3.5-5.1 [facility] Protein [Mass/Vol] 6.4 g/dL 6.4-8.2 [facility] Sodium [Moles/Vol] 136 mmol/L 136-145 [facility] Urea nitrogen [Mass/Vol] 29.0 mg/dL 7.0-18.0 [facility] Urea nitrogen/Creatinine [Mass ratio] 17.4 mg/mg [facility] - Hematology and Cell countson 10-06-2023 ESR (Bld) [Velocity] mm/h <=20 [facility] Immature granulocytes/100 WBC (Bld) 1.5 % 0.0-0.5 [facility] Leukocytes [#/volume] correc jorge for nucleated erythrocytes in Blood by Automated counon 10-06-2023 WBC corrected for nucl RBC Auto (Bld) [#/Vol] 11.6 10 3/uL 4.0-11.0 [facility] Lymphocytes Auto (Bld) [#/Vo l]on 10-06-2023 Lymphocytes (Bld) [#/Vol] 1.5 10 3/uL 1.2-3.8 [facility] Lymphocytes/100 WBC Auto (Bl d)on 10-06-2023 Lymphocytes/100 WBC (Bld) 12.9 % 20.5-60.0 [facility] MCH Auto (RBC) [Entitic mass ]on 10-06-2023 MCH (RBC) [Entitic mass] 22.5 pg 25.9-34.0 [facility] MCHC Auto (RBC) [Mass/Vol]on 10-06-2023 MCHC (RBC) [Mass/Vol] 29.7 g/dL 29.9-35.2 [facility] MCV Auto (RBC) [Entitic vol] on 10-06-2023 MCV (RBC) [Entitic vol] 75.9 fL 80.0-94.0 [facility] Monocytes Auto (Bld) [#/Vol] on 10-06-2023 Monocytes (Bld) [#/Vol] 1.3 10 3/uL 0.3-0.8 [facility] Monocytes/100 WBC Auto (Bld) on 10-06-2023 Monocytes/100 WBC (Bld) 10.9 % 1.7-12.0 [facility] Neutrophils Auto (Bld) [#/Vo l]on 10-06-2023 Neutrophils (Bld) [#/Vol] 8.4 10 3/uL 1.4-6.5 [facility] Neutrophils/100 WBC Auto (Bl d)on 10-06-2023 Neutrophils/100 WBC (Bld) 72.5 % 43.0-75.0 [facility] No Panel Informationon 10-05 Eosinophils # (Auto) 0.2 10 3/uL 0.0-0.7 [facility] Immature Granulocyte # (Auto) 0.17 10 3/uL 0.00-0.03 [facility] Platelet mean volume Auto (B ld) [Entitic vol]on 10-06-2023 Platelet mean volume (Bld) [Entitic vol] 10.3 fL 9.5-13.5 [facility] Platelets Auto (Bld) [#/Vol] on 10-06-2023 Platelets (Bld) [#/Vol] 233 10 3/uL 150-450 [facility] RBC Auto (Bld) [#/Vol]on RBC (Bld) [#/Vol] 3.73 10 6/uL 4.70-6.10 [facility] Serum or plasma albumin/glob ulin mass ratioon 10-06-2023 Albumin/Globulin [Mass ratio] 0.5 {ratio} [facility] Serum or plasma anion gap de terminationon 10-06-2023 Anion gap [Moles/Vol] 14.1 mmol/L [facility] Basophils Auto (Bld) [#/Vol] on 10-05-2023 Basophils (Bld) [#/Vol] 0.1 10 3/uL 0.0-0.1 [facility] Basophils/100 WBC Auto (Bld) on 10-05-2023 Basophils/100 WBC (Bld) 0.6 % 0.2-2.0 [facility] Eosinophils/100 WBC Auto (Bl d)on 10-05-2023 Eosinophils/100 WBC (Bld) 3.3 % 0.9-7.0 [facility] Erythrocyte distribution wid th Auto (RBC) [Ratio]on 10-05-2023 Erythrocyte distribution width (RBC) [Ratio] 19.6 % 11.0-15.0 [facility] Estimated glomerular filtrat ion rate (GFR) non- Americanon 10-05-2023 GFR/1.73 sq M.predicted among non-blacks MDRD (S/P/Bld) [Vol rate/Area] 41 mL/min/{1.73_m2} >=60 [facility] Globulin Calc (S) [Mass/Vol] on 10-05-2023 Globulin (S) [Mass/Vol] 4.7 g/dL [facility] Hematocrit Auto (Bld) [Volum e fraction]on 10-05-2023 Hematocrit (Bld) [Volume fraction] 29.9 % 42.0-54.0 [facility] Hemoglobin [Mass/volume] in Bloodon 10-05-2023 Hemoglobin (Bld) [Mass/Vol] 9.0 g/dL 14.0-18.0 [facility] Guy 10-05-2023 L Specimen: [id number] Received: 10/06/23 [id number] Spec Type: Surgical Subm Dr: Paula Elias DPM, [place] Tissues: A DIGIT AMPUTATION (RT 2,3,4 AND 5 METATARSAL AM) Procedures: HE/6, Gross/Micro L4, Decalcification Age/ Patient Sex Location Account Attending Physician Solomon Feldman SR 58/M LABELL [id number] Paula Elias DPM, MS SPEC NUM: [id number] RECD: 10/06/23 STATUS: [employer] NUM: [id number] SHAKIRA: 10/05/[address]: Paula Elias DPM, MS ENTERED: 10/06/23 [facility] DR: Jericho Carey SPEC TYPE: Surgical DEPT: [...] specimen demonstrates firm, yellow spongy bone matrix. [employer] sections are submitted as follows: A1: Skin and soft tissue margins A2: Second digit, bone margin; #1 proximal phalangeal margin (following decal) A3: Third digit, bone margin; #2 proximal phalangeal margin (following decal) A4: Fourth digit, bone margin; #3 proximal phalangeal margin (following decal) A5: Fifth digit, bone margin; #4 proximal phalangeal margin (following decal) Specimen: [id number] Received: 10/06/23 Status: COLTON Nath Num: [id number] Spec Type: Surgical Subm Dr: Paula Elias,[place], [place] Tissues: A DIGIT AMPUTATION (RT 2,3,4 AND 5 METATARSAL AM) Procedures: HE/6, Gross/Micro L4, Decalcification Patient: Solomon Feldman [id number] (Continued) Specimen: [id number] Received: 10/06/23 (Continued) Gross Description (Continued) Signed (signature on file) Padmini Linn MD 10/10/23 1542 Specimen: [id number] Received: 10/06/23 Status: COLTON Nath Num: [id number] Spec Type: Surgical Subm Dr: Paula Elias,[place], [place] Tissues: A DIGIT AMPUTATION (RT 2,3,4 AND 5 METATARSAL AM) Procedures: /Ramirez, Gross/Micro L4, Decalcification Patient: Solomon Feldman SR [id number] (Continued) Specimen: [id number] Received: 10/06/23 (Continued) Gross Description (Continued) A6: Full-thickness section to include skin, underlying soft tissue and bone (following decal) Clinical history: None given CPT Codes 77511 FOREFOOT AND DIGITS Specimen: [id number] Received: 10/06/23 Status: COLTON Nath Num: [id number] Spec Type: Surgical Subm Dr: Paula Elias,[place], [place] Tissues: A DIGIT AMPUTATION (RT 2,3,4 AND 5 METATARSAL AM) Procedures: HE/6, Gross/Micro L4, Decalcification Patient: Solomon Feldman SR [id number] (Continued) Signed (signature on file) Padmini Linn MD 10/10/23 1542 Normal [facility] Laboratory - Chemistry and C hemistry - challengeon 10-05-2023 Albumin [Mass/Vol] 2.2 g/dL 3.4-5.0 [facility] ALP [Catalytic activity/Vol] 140 U/L 46-116 [facility] ALT [Catalytic activity/Vol] 18 U/L 16-63 [facility] AST [Catalytic activity/Vol] 22 U/L 15-37 [facility] Bilirubin [Mass/Vol] 0.5 mg/dL 0.2-1.0 [facility] Calcium [Mass/Vol] 9.2 mg/dL 8.5-10.1 [facility] Chloride [Moles/Vol] 100 mmol/L 98-107 [facility] CO2 [Moles/Vol] 22.6 mmol/L 21.0-32.0 [facility] Creatinine [Mass/Vol] 1.74 mg/dL 0.70-1.30 [facility] GFR/1.73 sq M.predicted MDRD (S/P/Bld) [Vol rate/Area] 49 mL/min/{1.73_m2} >=60 [facility] Glucose [Mass/Vol] 162 mg/dL 74-106 [facility] Magnesium [Mass/Vol] 1.7 mg/dL 1.8-2.4 [facility] Potassium [Moles/Vol] 5.3 mmol/L 3.5-5.1 [facility] Protein [Mass/Vol] 6.9 g/dL 6.4-8.2 [facility] Sodium [Moles/Vol] 133 mmol/L 136-145 [facility] Urea nitrogen [Mass/Vol] 30.0 mg/dL 7.0-18.0 [facility] Urea nitrogen/Creatinine [Mass ratio] 17.2 mg/mg [facility] Laboratory - Hematology and Cell countson 10-05-2023 ESR (Bld) [Velocity] 130 mm/h <=20 [facility] Immature granulocytes/100 WBC (Bld) 1.3 % 0.0-0.5 [facility] Leukocytes [#/volume] correc jorge for nucleated erythrocytes in Blood by Automated counon 10-05-2023 WBC corrected for nucl RBC Auto (Bld) [#/Vol] 12.6 10 3/uL 4.0-11.0 [facility] Lymphocytes Auto (Bld) [#/Vo l]on 10-05-2023 Lymphocytes (Bld) [#/Vol] 1.3 10 3/uL 1.2-3.8 [facility] Lymphocytes/100 WBC Auto (Bl d)on 10-05-2023 Lymphocytes/100 WBC (Bld) 10.1 % 20.5-60.0 [facility] MCH Auto (RBC) [Entitic mass ]on 10-05-2023 MCH (RBC) [Entitic mass] 22.7 pg 25.9-34.0 [facility] MCHC Auto (RBC) [Mass/Vol]on 10-05-2023 MCHC (RBC) [Mass/Vol] 30.1 g/dL 29.9-35.2 [facility] MCV Auto (RBC) [Entitic vol] on 10-05-2023 MCV (RBC) [Entitic vol] 75.3 fL 80.0-94.0 [facility] Monocytes Auto (Bld) [#/Vol] on 10-05-2023 Monocytes (Bld) [#/Vol] 1.4 10 3/uL 0.3-0.8 [facility] Monocytes/100 WBC Auto (Bld) on 10-05-2023 Monocytes/100 WBC (Bld) 10.9 % 1.7-12.0 [facility] Neutrophils Auto (Bld) [#/Vo l]on 10-05-2023 Neutrophils (Bld) [#/Vol] 9.3 10 3/uL 1.4-6.5 [facility] Neutrophils/100 WBC Auto (Bl d)on 10-05-2023 Neutrophils/100 WBC (Bld) 73.8 % 43.0-75.0 [facility] No Panel Informationon 10-04 Eosinophils # (Auto) 0.4 10 3/uL 0.0-0.7 [facility] Immature Granulocyte # (Auto) 0.16 10 3/uL 0.00-0.03 [facility] Platelet mean volume Auto (B ld) [Entitic vol]on 10-05-2023 Platelet mean volume (Bld) [Entitic vol] 11.3 fL 9.5-13.5 [facility] Platelets Auto (Bld) [#/Vol] on 10-05-2023 Platelets (Bld) [#/Vol] 203 10 3/uL 150-450 [facility] RBC Auto (Bld) [#/Vol]on RBC (Bld) [#/Vol] 3.97 10 6/uL 4.70-6.10 [facility] Serum or plasma albumin/glob ulin mass ratioon 10-05-2023 Albumin/Globulin [Mass ratio] 0.5 {ratio} [facility] Serum or plasma anion gap de terminationon 10-05-2023 Anion gap [Moles/Vol] 15.7 mmol/L [facility] Basophils Auto (Bld) [#/Vol] on 10-04-2023 Basophils (Bld) [#/Vol] 0.1 10 3/uL 0.0-0.1 [facility] Basophils/100 WBC Auto (Bld) on 10-04-2023 Basophils/100 WBC (Bld) 0.5 % 0.2-2.0 [facility] Eosinophils/100 WBC Auto (Bl d)on 10-04-2023 Eosinophils/100 WBC (Bld) 3.6 % 0.9-7.0 [facility] Erythrocyte distribution wid th Auto (RBC) [Ratio]on 10-04-2023 Erythrocyte distribution width (RBC) [Ratio] 19.6 % 11.0-15.0 [facility] Estimated glomerular filtrat ion rate (GFR) non- Americanon 10-04-2023 GFR/1.73 sq M.predicted among non-blacks MDRD (S/P/Bld) [Vol rate/Area] 44 mL/min/{1.73_m2} >=60 [facility] Globulin Calc (S) [Mass/Vol] on 10-04-2023 Globulin (S) [Mass/Vol] 4.3 g/dL [facility] Hematocrit Auto (Bld) [Volum e fraction]on 10-04-2023 Hematocrit (Bld) [Volume fraction] 26.8 % 42.0-54.0 [facility] Hemoglobin [Mass/volume] in Bloodon 10-04-2023 Hemoglobin (Bld) [Mass/Vol] 7.9 g/dL 14.0-18.0 [facility] Laboratory - Chemistry and C hemistry - challengeon 10-04-2023 Albumin [Mass/Vol] 1.9 g/dL 3.4-5.0 [facility] ALP [Catalytic activity/Vol] 135 U/L 46-116 [facility] ALT [Catalytic activity/Vol] 16 U/L 16-63 [facility] AST [Catalytic activity/Vol] 19 U/L 15-37 [facility] Bilirubin [Mass/Vol] 0.4 mg/dL 0.2-1.0 [facility] Calcium [Mass/Vol] 7.8 mg/dL 8.5-10.1 [facility] Chloride [Moles/Vol] 102 mmol/L 98-107 [facility] CO2 [Moles/Vol] 25.0 mmol/L 21.0-32.0 [facility] Creatinine [Mass/Vol] 1.61 mg/dL 0.70-1.30 [facility] GFR/1.73 sq M.predicted MDRD (S/P/Bld) [Vol rate/Area] 54 mL/min/{1.73_m2} >=60 [facility] Glucose [Mass/Vol] 136 mg/dL 74-106 [facility] Magnesium [Mass/Vol] 1.7 mg/dL 1.8-2.4 [facility] Potassium [Moles/Vol] 5.1 mmol/L 3.5-5.1 [facility] Protein [Mass/Vol] 6.2 g/dL 6.4-8.2 [facility] Sodium [Moles/Vol] 134 mmol/L 136-145 [facility] Urea nitrogen [Mass/Vol] 25.0 mg/dL 7.0-18.0 [facility] Urea nitrogen/Creatinine [Mass ratio] 15.5 mg/mg [facility] Laboratory - Hematology and Cell countson 10-04-2023 ESR (Bld) [Velocity] 117 mm/h <=20 [facility] Immature granulocytes/100 WBC (Bld) 0.9 % 0.0-0.5 [facility] Leukocytes [#/volume] correc jorge for nucleated erythrocytes in Blood by Automated counon 10-04-2023 WBC corrected for nucl RBC Auto (Bld) [#/Vol] 11.5 10 3/uL 4.0-11.0 [facility] Lymphocytes Auto (Bld) [#/Vo l]on 10-04-2023 Lymphocytes (Bld) [#/Vol] 1.3 10 3/uL 1.2-3.8 [facility] Lymphocytes/100 WBC Auto (Bl d)on 10-04-2023 Lymphocytes/100 WBC (Bld) 10.9 % 20.5-60.0 [facility] MCH Auto (RBC) [Entitic mass ]on 10-04-2023 MCH (RBC) [Entitic mass] 22.4 pg 25.9-34.0 [facility] MCHC Auto (RBC) [Mass/Vol]on 10-04-2023 MCHC (RBC) [Mass/Vol] 29.5 g/dL 29.9-35.2 [facility] MCV Auto (RBC) [Entitic vol] on 10-04-2023 MCV (RBC) [Entitic vol] 75.9 fL 80.0-94.0 [facility] Monocytes Auto (Bld) [#/Vol] on 10-04-2023 Monocytes (Bld) [#/Vol] 1.4 10 3/uL 0.3-0.8 [facility] Monocytes/100 WBC Auto (Bld) on 10-04-2023 Monocytes/100 WBC (Bld) 12.4 % 1.7-12.0 [facility] Neutrophils Auto (Bld) [#/Vo l]on 10-04-2023 Neutrophils (Bld) [#/Vol] 8.3 10 3/uL 1.4-6.5 [facility] Neutrophils/100 WBC Auto (Bl d)on 10-04-2023 Neutrophils/100 WBC (Bld) 71.7 % 43.0-75.0 [facility] No Panel Informationon 10-03 Eosinophils # (Auto) 0.4 10 3/uL 0.0-0.7 [facility] Immature Granulocyte # (Auto) 0.10 10 3/uL 0.00-0.03 [facility] Platelet mean volume Auto (B ld) [Entitic vol]on 10-04-2023 Platelet mean volume (Bld) [Entitic vol] 11.5 fL 9.5-13.5 [facility] Platelets Auto (Bld) [#/Vol] on 10-04-2023 Platelets (Bld) [#/Vol] 154 10 3/uL 150-450 [facility] RBC Auto (Bld) [#/Vol]on RBC (Bld) [#/Vol] 3.53 10 6/uL 4.70-6.10 [facility] Serum or plasma albumin/glob ulin mass ratioon 10-04-2023 Albumin/Globulin [Mass ratio] 0.4 {ratio} [facility] Serum or plasma anion gap de terminationon 10-04-2023 Anion gap [Moles/Vol] 12.1 [facility] Basophils Auto (Bld) [#/Vol] on 10-03-2023 Basophils (Bld) [#/Vol] 0.1 10 3/uL 0.0-0.1 [facility] Basophils/100 WBC Auto (Bld) on 10-03-2023 Basophils/100 WBC (Bld) 0.7 % 0.2-2.0 [facility] Eosinophils/100 WBC Auto (Bl d)on 10-03-2023 Eosinophils/100 WBC (Bld) 2.7 % 0.9-7.0 [facility] Erythrocyte distribution wid th Auto (RBC) [Ratio]on 10-03-2023 Erythrocyte distribution width (RBC) [Ratio] 19.2 % 11.0-15.0 [facility] Estimated glomerular filtrat ion rate (GFR) non- Americanon 10-03-2023 GFR/1.73 sq M.predicted among non-blacks MDRD (S/P/Bld) [Vol rate/Area] 46 mL/min/{1.73_m2} >=60 [facility] Globulin Calc (S) [Mass/Vol] on 10-03-2023 Globulin (S) [Mass/Vol] 4.1 g/dL [facility] Hematocrit Auto (Bld) [Volum e fraction]on 10-03-2023 Hematocrit (Bld) [Volume fraction] 26.4 % 42.0-54.0 [facility] Hemoglobin [Mass/volume] in Bloodon 10-03-2023 Hemoglobin (Bld) [Mass/Vol] 8.1 g/dL 14.0-18.0 [facility] Laboratory - Chemistry and C hemistry - challengeon 10-03-2023 Albumin [Mass/Vol] 1.9 g/dL 3.4-5.0 [facility] ALP [Catalytic activity/Vol] 140 U/L 46-116 [facility] ALT [Catalytic activity/Vol] 17 U/L 16-63 [facility] AST [Catalytic activity/Vol] 21 U/L 15-37 [facility] Bilirubin [Mass/Vol] 0.3 mg/dL 0.2-1.0 [facility] Calcium [Mass/Vol] 6.7 mg/dL 8.5-10.1 [facility] Chloride [Moles/Vol] 101 mmol/L 98-107 [facility] CO2 [Moles/Vol] 23.9 mmol/L 21.0-32.0 [facility] Creatinine [Mass/Vol] 1.57 mg/dL 0.70-1.30 [facility] GFR/1.73 sq M.predicted MDRD (S/P/Bld) [Vol rate/Area] 55 mL/min/{1.73_m2} >=60 [facility] Glucose [Mass/Vol] 142 mg/dL 74-106 [facility] Magnesium [Mass/Vol] 1.3 mg/dL 1.8-2.4 [facility] Potassium [Moles/Vol] 4.8 mmol/L 3.5-5.1 [facility] Protein [Mass/Vol] 6.0 g/dL 6.4-8.2 [facility] Sodium [Moles/Vol] 134 mmol/L 136-145 [facility] Urea nitrogen [Mass/Vol] 23.0 mg/dL 7.0-18.0 [facility] Urea nitrogen/Creatinine [Mass ratio] 14.6 mg/mg [facility] Laboratory - Hematology and Cell countson 10-03-2023 ESR (Bld) [Velocity] mm/h <=20 [facility] Immature granulocytes/100 WBC (Bld) 1.0 % 0.0-0.5 [facility] Leukocytes [#/volume] correc jorge for nucleated erythrocytes in Blood by Automated counon 10-03-2023 WBC corrected for nucl RBC Auto (Bld) [#/Vol] 11.6 10 3/uL 4.0-11.0 [facility] Lymphocytes Auto (Bld) [#/Vo l]on 10-03-2023 Lymphocytes (Bld) [#/Vol] 1.4 10 3/uL 1.2-3.8 [facility] Lymphocytes/100 WBC Auto (Bl d)on 10-03-2023 Lymphocytes/100 WBC (Bld) 12.1 % 20.5-60.0 [facility] MCH Auto (RBC) [Entitic mass ]on 10-03-2023 MCH (RBC) [Entitic mass] 23.2 pg 25.9-34.0 [facility] MCHC Auto (RBC) [Mass/Vol]on 10-03-2023 MCHC (RBC) [Mass/Vol] 30.7 g/dL 29.9-35.2 [facility] MCV Auto (RBC) [Entitic vol] on 10-03-2023 MCV (RBC) [Entitic vol] 75.6 fL 80.0-94.0 [facility] Monocytes Auto (Bld) [#/Vol] on 10-03-2023 Monocytes (Bld) [#/Vol] 1.3 10 3/uL 0.3-0.8 [facility] Monocytes/100 WBC Auto (Bld) on 10-03-2023 Monocytes/100 WBC (Bld) 10.8 % 1.7-12.0 [facility] Neutrophils Auto (Bld) [#/Vo l]on 10-03-2023 Neutrophils (Bld) [#/Vol] 8.5 10 3/uL 1.4-6.5 [facility] Neutrophils/100 WBC Auto (Bl d)on 10-03-2023 Neutrophils/100 WBC (Bld) 72.7 % 43.0-75.0 [facility] No Panel Informationon 10-02 Eosinophils # (Auto) 0.3 10 3/uL 0.0-0.7 [facility] Immature Granulocyte # (Auto) 0.12 10 3/uL 0.00-0.03 [facility] Platelet mean volume Auto (B ld) [Entitic vol]on 10-03-2023 Platelet mean volume (Bld) [Entitic vol] 11.3 fL 9.5-13.5 [facility] Platelets Auto (Bld) [#/Vol] on 10-03-2023 Platelets (Bld) [#/Vol] 141 10 3/uL 150-450 [facility] RBC Auto (Bld) [#/Vol]on RBC (Bld) [#/Vol] 3.49 10 6/uL 4.70-6.10 [facility] Serum or plasma albumin/glob ulin mass ratioon 10-03-2023 Albumin/Globulin [Mass ratio] 0.5 {ratio} [facility] Serum or plasma anion gap de terminationon 10-03-2023 Anion gap [Moles/Vol] 13.9 mmol/L [facility] Basophils Auto (Bld) [#/Vol] on 10-02-2023 Basophils (Bld) [#/Vol] 0.0 10 3/uL 0.0-0.1 [facility] Basophils/100 WBC Auto (Bld) on 10-02-2023 Basophils/100 WBC (Bld) 0.4 % 0.2-2.0 [facility] Eosinophils/100 WBC Auto (Bl d)on 10-02-2023 Eosinophils/100 WBC (Bld) 2.2 % 0.9-7.0 [facility] Erythrocyte distribution wid th Auto (RBC) [Ratio]on 10-02-2023 Erythrocyte distribution width (RBC) [Ratio] 19.3 % 11.0-15.0 [facility] Estimated glomerular filtrat ion rate (GFR) non- Americanon 10-02-2023 GFR/1.73 sq M.predicted among non-blacks MDRD (S/P/Bld) [Vol rate/Area] 41 mL/min/{1.73_m2} >=60 [facility] Globulin Calc (S) [Mass/Vol] on 10-02-2023 Globulin (S) [Mass/Vol] 4.2 g/dL [facility] Hematocrit Auto (Bld) [Volum e fraction]on 10-02-2023 Hematocrit (Bld) [Volume fraction] 26.1 % 42.0-54.0 [facility] Hemoglobin [Mass/volume] in Bloodon 10-02-2023 Hemoglobin (Bld) [Mass/Vol] 7.8 g/dL 14.0-18.0 [facility] Guy 10-02-2023 L Specimen: [id number] Received: 10/03/23 Status: COLTON Nath Num: [id number] Spec Type: Surgical Subm Dr: Paula Elias DPM, MS Tissues: A DIGIT AMPUTATION (FIRST METATARSAL RT FOOT) Procedures: HE/2, Gross/Micro L4, Decalcification Age/ Patient Sex Location Account Attending Physician Solomon Feldman SR 58/M LABELL [id number] Paula Elias DPM, MS SPEC NUM: [id number] RECD: 10/03/23 STATUS: [employer] NUM: [id number] SHAKIRA: 10/02/[address]: Paula Elias DPM, [...] firm yellow- pink spongy bone matrix. 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 Clinical history: Right diabetic foot infection CPT Codes 41746 Specimen: [id number] Received: 10/03/23 Status: COLTON Nath Num: [id number] Spec Type: Surgical Subm Dr: Paula Elias,DPSarika, MS Tissues: A DIGIT AMPUTATION (FIRST METATARSAL RT FOOT) Procedures: LULU/Karli, Gross/Micro L4, Decalcification Patient: Solomon Feldman SR [id number] (Continued) Signed (signature on file) Padmini Linn MD 10/05/23 1426 Normal [facility] Laboratory - Chemistry and C hemistry - challengeon 10-02-2023 Albumin [Mass/Vol] 2.1 g/dL 3.4-5.0 [facility] ALP [Catalytic activity/Vol] 131 U/L 46-116 [facility] ALT [Catalytic activity/Vol] 17 U/L 16-63 [facility] AST [Catalytic activity/Vol] 13 U/L 15-37 [facility] Bilirubin [Mass/Vol] 0.3 mg/dL 0.2-1.0 [facility] Calcium [Mass/Vol] 6.6 mg/dL 8.5-10.1 [facility] Chloride [Moles/Vol] 105 mmol/L 98-107 [facility] CO2 [Moles/Vol] 24.3 mmol/L 21.0-32.0 [facility] Creatinine [Mass/Vol] 1.72 mg/dL 0.70-1.30 [facility] GFR/1.73 sq M.predicted MDRD (S/P/Bld) [Vol rate/Area] 50 mL/min/{1.73_m2} >=60 [facility] Glucose [Mass/Vol] 156 mg/dL 74-106 [facility] Magnesium [Mass/Vol] 1.5 mg/dL 1.8-2.4 [facility] Potassium [Moles/Vol] 4.0 mmol/L 3.5-5.1 [facility] Protein [Mass/Vol] 6.3 g/dL 6.4-8.2 [facility] Sodium [Moles/Vol] 139 mmol/L 136-145 [facility] Urea nitrogen [Mass/Vol] 27.0 mg/dL 7.0-18.0 [facility] Urea nitrogen/Creatinine [Mass ratio] 15.7 mg/mg [facility] Laboratory - Hematology and Cell countson 10-02-2023 Immature granulocytes/100 WBC (Bld) 0.4 % 0.0-0.5 [facility] ESR (Bld) [Velocity] 110 mm/h <=20 [facility] Laboratory - Microbiology an d Antimicrobial susceptibilityOrdered By: Truman Bryant on 10-02-2023 Microscopic observation Gram stain Nom (Unsp spec) [facility] Leukocytes [#/volume] correc jorge for nucleated erythrocytes in Blood by Automated counon 10-02-2023 WBC corrected for nucl RBC Auto (Bld) [#/Vol] 8.5 10 3/uL 4.0-11.0 [facility] Lymphocytes Auto (Bld) [#/Vo l]on 10-02-2023 Lymphocytes (Bld) [#/Vol] 1.5 10 3/uL 1.2-3.8 [facility] Lymphocytes/100 WBC Auto (Bl d)on 10-02-2023 Lymphocytes/100 WBC (Bld) 17.3 % 20.5-60.0 [facility] MCH Auto (RBC) [Entitic mass ]on 10-02-2023 MCH (RBC) [Entitic mass] 22.5 pg 25.9-34.0 [facility] MCHC Auto (RBC) [Mass/Vol]on 10-02-2023 MCHC (RBC) [Mass/Vol] 29.9 g/dL 29.9-35.2 [facility] MCV Auto (RBC) [Entitic vol] on 10-02-2023 MCV (RBC) [Entitic vol] 75.2 fL 80.0-94.0 [facility] Monocytes Auto (Bld) [#/Vol] on 10-02-2023 Monocytes (Bld) [#/Vol] 0.8 10 3/uL 0.3-0.8 [facility] Monocytes/100 WBC Auto (Bld) on 10-02-2023 Monocytes/100 WBC (Bld) 9.1 % 1.7-12.0 [facility] Neutrophils Auto (Bld) [#/Vo l]on 10-02-2023 Neutrophils (Bld) [#/Vol] 6.0 10 3/uL 1.4-6.5 [facility] Neutrophils/100 WBC Auto (Bl d)on 10-02-2023 Neutrophils/100 WBC (Bld) 70.6 % 43.0-75.0 [facility] No Panel Informationon 10-01 Eosinophils # (Auto) 0.2 10 3/uL 0.0-0.7 [facility] Immature Granulocyte # (Auto) 0.03 10 3/uL 0.00-0.03 [facility] Fungal Smear Result [facility] Miscellaneous Test Comment See comment [facility] Comment on above: Specimen Source: JONO TRT - Foot Right - Foot Rt - [id number] No Panel InformationOrdered By: Truman Bryant on 10-02-2023 Tissue Culture [facility] No Panel InformationOrdered By: Paula Elias on 10-02-2023 Acid Fast Smear [facility] AFB Specimen Processing [facility] Platelet mean volume Auto (B ld) [Entitic vol]on 10-02-2023 Platelet mean volume (Bld) [Entitic vol] 10.6 fL 9.5-13.5 [facility] Platelets Auto (Bld) [#/Vol] on 10-02-2023 Platelets (Bld) [#/Vol] 142 10 3/uL 150-450 [facility] RBC Auto (Bld) [#/Vol]on RBC (Bld) [#/Vol] 3.47 10 6/uL 4.70-6.10 [facility] Serum or plasma albumin/glob ulin mass ratioon 10-02-2023 Albumin/Globulin [Mass ratio] 0.5 {ratio} [facility] Serum or plasma anion gap de terminationon 10-02-2023 Anion gap [Moles/Vol] 13.7 [facility] Basophils Auto (Bld) [#/Vol] on 10-01-2023 Basophils (Bld) [#/Vol] 0.0 10 3/uL 0.0-0.1 [facility] Basophils/100 WBC Auto (Bld) on 10-01-2023 Basophils/100 WBC (Bld) 0.4 % 0.2-2.0 [facility] Eosinophils/100 WBC Auto (Bl d)on 10-01-2023 Eosinophils/100 WBC (Bld) 1.7 % 0.9-7.0 [facility] Erythrocyte distribution wid th Auto (RBC) [Ratio]on 10-01-2023 Erythrocyte distribution width (RBC) [Ratio] 18.5 % 11.0-15.0 [facility] Estimated glomerular filtrat ion rate (GFR) non- Americanon 10-01-2023 GFR/1.73 sq M.predicted among non-blacks MDRD (S/P/Bld) [Vol rate/Area] 27 mL/min/{1.73_m2} >=60 [facility] Globulin Calc (S) [Mass/Vol] on 10-01-2023 Globulin (S) [Mass/Vol] 4.0 g/dL [facility] Hematocrit Auto (Bld) [Volum e fraction]on 10-01-2023 Hematocrit (Bld) [Volume fraction] 26.5 % 42.0-54.0 [facility] Hemoglobin [Mass/volume] in Bloodon 10-01-2023 Hemoglobin (Bld) [Mass/Vol] 8.0 g/dL 14.0-18.0 [facility] Laboratory - Chemistry and C hemistry - challengeon 10-01-2023 Lactate [Moles/Vol] 1.8 mmol/L 0.4-2.0 [facility] Albumin [Mass/Vol] 1.9 g/dL 3.4-5.0 [facility] ALP [Catalytic activity/Vol] 113 U/L 46-116 [facility] ALT [Catalytic activity/Vol] 17 U/L 16-63 [facility] AST [Catalytic activity/Vol] 14 U/L 15-37 [facility] Bilirubin [Mass/Vol] 0.3 mg/dL 0.2-1.0 [facility] Calcium [Mass/Vol] 5.7 mg/dL 8.5-10.1 [facility] Comment on above: RESULTS CALLED TO Patricio Genao(RN)@BY SKY AndersonT at 0619 Chloride [Moles/Vol] 102 mmol/L 98-107 [facility] CO2 [Moles/Vol] 20.4 mmol/L 21.0-32.0 [facility] Creatinine [Mass/Vol] 2.46 mg/dL 0.70-1.30 [facility] GFR/1.73 sq M.predicted MDRD (S/P/Bld) [Vol rate/Area] 33 mL/min/{1.73_m2} >=60 [facility] Glucose [Mass/Vol] 67 mg/dL 74-106 [facility] Magnesium [Mass/Vol] 0.8 mg/dL 1.8-2.4 [facility] Comment on above: RESULTS CALLED TO Patricio Genao (RN)@BY SKY WayT at 0601 Potassium [Moles/Vol] 3.1 mmol/L 3.5-5.1 [facility] Protein [Mass/Vol] 5.9 g/dL 6.4-8.2 [facility] Sodium [Moles/Vol] 138 mmol/L 136-145 [facility] Urea nitrogen [Mass/Vol] 28.0 mg/dL 7.0-18.0 [facility] Urea nitrogen/Creatinine [Mass ratio] 11.4 mg/mg [facility] Laboratory - Hematology and Cell countson 10-01-2023 ESR (Bld) [Velocity] 96 mm/h <=20 [facility] Immature granulocytes/100 WBC (Bld) 0.6 % 0.0-0.5 [facility] Leukocytes [#/volume] correc jorge for nucleated erythrocytes in Blood by Automated counon 10-01-2023 WBC corrected for nucl RBC Auto (Bld) [#/Vol] 10.0 10 3/uL 4.0-11.0 [facility] Lymphocytes Auto (Bld) [#/Vo l]on 10-01-2023 Lymphocytes (Bld) [#/Vol] 1.3 10 3/uL 1.2-3.8 [facility] Lymphocytes/100 WBC Auto (Bl d)on 10-01-2023 Lymphocytes/100 WBC (Bld) 12.8 % 20.5-60.0 [facility] MCH Auto (RBC) [Entitic mass ]on 10-01-2023 MCH (RBC) [Entitic mass] 22.4 pg 25.9-34.0 [facility] MCHC Auto (RBC) [Mass/Vol]on 10-01-2023 MCHC (RBC) [Mass/Vol] 30.2 g/dL 29.9-35.2 [facility] MCV Auto (RBC) [Entitic vol] on 10-01-2023 MCV (RBC) [Entitic vol] 74.2 fL 80.0-94.0 [facility] Monocytes Auto (Bld) [#/Vol] on 10-01-2023 Monocytes (Bld) [#/Vol] 0.7 10 3/uL 0.3-0.8 [facility] Monocytes/100 WBC Auto (Bld) on 10-01-2023 Monocytes/100 WBC (Bld) 6.9 % 1.7-12.0 [facility] Neutrophils Auto (Bld) [#/Vo l]on 10-01-2023 Neutrophils (Bld) [#/Vol] 7.8 10 3/uL 1.4-6.5 [facility] Neutrophils/100 WBC Auto (Bl d)on 10-01-2023 Neutrophils/100 WBC (Bld) 77.6 % 43.0-75.0 [facility] No Panel Informationon 09-30 C-Reactive Protein, Quantitative 10.58 mg/dL <=0.50 [facility] Eosinophils # (Auto) 0.2 10 3/uL 0.0-0.7 [facility] Immature Granulocyte # (Auto) 0.06 10 3/uL 0.00-0.03 [facility] Troponin I High Sensitivity 8.3 pg/mL 4.0-76.1 [facility] Comment on above: CUT-OFF POINTS [...] Blood Partial Pressure CO2 30.4 mm[Hg] 40.0-52.0 [facility] Venous Blood pH 7.421 7.330-7.43 0 [facility] Platelet mean volume Auto (B ld) [Entitic vol]on 10-01-2023 Platelet mean volume (Bld) [Entitic vol] 11.2 fL 9.5-13.5 [facility] Platelets Auto (Bld) [#/Vol] on 10-01-2023 Platelets (Bld) [#/Vol] 164 10 3/uL 150-450 [facility] RBC Auto (Bld) [#/Vol]on RBC (Bld) [#/Vol] 3.57 10 6/uL 4.70-6.10 [facility] Serum or plasma albumin/glob ulin mass ratioon 10-01-2023 Albumin/Globulin [Mass ratio] 0.5 {ratio} [facility] Serum or plasma anion gap de terminationon 10-01-2023 Anion gap [Moles/Vol] 18.7 mmol/[facility] epithelial cells c ount in urine sediment (number/area)on 09-30-2023 Epithelial cells Auto (Urine sed) [#/Area] NONE SEEN #/LPF NONE/RARE [facility] Automated leukocytes count i n urine sediment (number/area)on 09-30-2023 WBC Auto (Urine sed) [#/Area] NONE SEEN #/HPF 0-2 [facility] Automated urine specific gra vity by refractometryon 09-30-2023 Specific gravity Refractometry automated (U) [Rel density] <=1.005 1.005-1.02 5 [facility] Basophils Auto (Bld) [#/Vol] on 09-30-2023 Basophils (Bld) [#/Vol] 0.1 10 3/uL 0.0-0.1 [facility] Basophils/100 WBC Auto (Bld) on 09-30-2023 Basophils/100 WBC (Bld) 0.4 % 0.2-2.0 [facility] Bilirubin Auto test strip (U ) [Mass/Vol]on 09-30-2023 Bilirubin (U) [Mass/Vol] Negative NEGATIVE [facility] Casts typing in urine sedime nt by light microscopyon 09-30-2023 Casts LM Nom (Urine sed) NONE SEEN #/LPF NONE SEEN [facility] Color Auto (U)on 09-30-2023 Color (U) LT. YELLOW YELLOW [facility] Eosinophils/100 WBC Auto (Bl d)on 09-30-2023 Eosinophils/100 WBC (Bld) 1.4 % 0.9-7.0 [facility] Erythrocyte distribution wid th Auto (RBC) [Ratio]on 09-30-2023 Erythrocyte distribution width (RBC) [Ratio] 19.0 % 11.0-15.0 [facility] Estimated glomerular filtrat ion rate (GFR) non- Americanon 09-30-2023 GFR/1.73 sq M.predicted among non-blacks MDRD (S/P/Bld) [Vol rate/Area] 19 mL/min/{1.73_m2} >=60 [facility] Globulin Calc (S) [Mass/Vol] on 09-30-2023 Globulin (S) [Mass/Vol] 4.8 g/dL [facility] Hematocrit Auto (Bld) [Volum e fraction]on 09-30-2023 Hematocrit (Bld) [Volume fraction] 32.9 % 42.0-54.0 [facility] Hemoglobin [Mass/volume] in Bloodon 09-30-2023 Hemoglobin (Bld) [Mass/Vol] 10.0 g/dL 14.0-18.0 [facility] INR in Platelet poor plasma by Coagulation assayon 09-30-2023 INR Coag (PPP) [Relative time] 1.23 {INR} [facility] Comment on above: DESIRED INR:2.0-3.0 CONDITIONS NOT LISTED BELOW2.5-3.5 FOR PROSTHETIC HEART VALVE REPLACEMENT2.5-3.5 RECURRENT THROMBOSIS Ketones Auto test strip (U) [Mass/Vol]on 09-30-2023 Ketones (U) [Mass/Vol] Negative NEGATIVE [facility] Laboratory - Chemistry and C hemistry - challengeon 09-30-2023 Lactate [Moles/Vol] 4.2 mmol/L 0.4-2.0 [facility] Comment on above: RESULTS CALLED TO Patricio Genao (RN)@BY SOFIYA Way at 2312 Albumin [Mass/Vol] 2.4 g/dL 3.4-5.0 [facility] ALP [Catalytic activity/Vol] 145 U/L 46-116 [facility] ALT [Catalytic activity/Vol] 17 U/L 16-63 [facility] AST [Catalytic activity/Vol] 21 U/L 15-37 [facility] Bilirubin [Mass/Vol] 0.4 mg/dL 0.2-1.0 [facility] Calcium [Mass/Vol] 5.8 mg/dL 8.5-10.1 [facility] Comment on above: RESULTS CALLED TO GIOVANNA CASTANON @BY Verona Hanson at 1645 Chloride [Moles/Vol] 97 mmol/L 98-107 [facility] CO2 [Moles/Vol] 18.3 mmol/L 21.0-32.0 [facility] Creatinine [Mass/Vol] 3.43 mg/dL 0.70-1.30 [facility] GFR/1.73 sq M.predicted MDRD (S/P/Bld) [Vol rate/Area] 22 mL/min/{1.73_m2} >=60 [facility] Glucose [Mass/Vol] 208 mg/dL 74-106 [facility] Magnesium [Mass/Vol] 0.5 mg/dL 1.8-2.4 [facility] Comment on above: RESULTS CALLED TO Giovanna Castanon @BY Marybel Hawkins MLT [id number] Natriuretic peptide B (Bld) [Mass/Vol] 611.0 pg/mL <=900.0 [facility] Potassium [Moles/Vol] 3.9 mmol/L 3.5-5.1 [facility] Protein [Mass/Vol] 7.2 g/dL 6.4-8.2 [facility] Sodium [Moles/Vol] 137 mmol/L 136-145 [facility] Urea nitrogen [Mass/Vol] 34.0 mg/dL 7.0-18.0 [facility] Urea nitrogen/Creatinine [Mass ratio] 9.9 mg/mg [facility] Laboratory - Hematology and Cell countson 09-30-2023 ESR (Bld) [Velocity] 130 mm/h <=20 [facility] Immature granulocytes/100 WBC (Bld) 0.6 % 0.0-0.5 [facility] Leukocytes [#/volume] correc jorge for nucleated erythrocytes in Blood by Automated counon 09-30-2023 WBC corrected for nucl RBC Auto (Bld) [#/Vol] 13.9 10 3/uL 4.0-11.0 [facility] Lymphocytes Auto (Bld) [#/Vo l]on 09-30-2023 Lymphocytes (Bld) [#/Vol] 1.4 10 3/uL 1.2-3.8 [facility] Lymphocytes/100 WBC Auto (Bl d)on 09-30-2023 Lymphocytes/100 WBC (Bld) 10.1 % 20.5-60.0 [facility] MCH Auto (RBC) [Entitic mass ]on 09-30-2023 MCH (RBC) [Entitic mass] 22.7 pg 25.9-34.0 [facility] MCHC Auto (RBC) [Mass/Vol]on 09-30-2023 MCHC (RBC) [Mass/Vol] 30.4 g/dL 29.9-35.2 [facility] MCV Auto (RBC) [Entitic vol] on 09-30-2023 MCV (RBC) [Entitic vol] 74.6 fL 80.0-94.0 [facility] Monocytes Auto (Bld) [#/Vol] on 09-30-2023 Monocytes (Bld) [#/Vol] 0.9 10 3/uL 0.3-0.8 [facility] Monocytes/100 WBC Auto (Bld) on 09-30-2023 Monocytes/100 WBC (Bld) 6.7 % 1.7-12.0 [facility] Mucus LM Ql (Urine sed)on Mucus Ql (Urine sed) NONE SEEN NONE SEEN [facility] Neutrophils Auto (Bld) [#/Vo l]on 09-30-2023 Neutrophils (Bld) [#/Vol] 11.2 10 3/uL 1.4-6.5 [facility] Neutrophils/100 WBC Auto (Bl d)on 09-30-2023 Neutrophils/100 WBC (Bld) 80.8 % 43.0-75.0 [facility] No Panel Informationon 09-29 Troponin I High Sensitivity 7.9 pg/mL 4.0-76.1 [facility] Comment on above: CUT-OFF POINTS [...] Blood Partial Pressure CO2 29.6 mm[Hg] 40.0-52.0 [facility] Venous Blood pH 7.405 7.330-7.43 0 [facility] Urine Culture [facility]lexed [facility] C-Reactive Protein, Quantitative 14.76 mg/dL <=0.50 [facility] Eosinophils # (Auto) 0.2 10 3/uL 0.0-0.7 [facility] Immature Granulocyte # (Auto) 0.09 10 3/uL 0.00-0.03 [facility] No Panel InformationOrdered By: Chandrika Castanon on 09-30-2023 Blood Culture 2 [facility] Wound Culture [facility] Blood Culture 1 [facility] Platelet mean volume Auto (B ld) [Entitic vol]on 09-30-2023 Platelet mean volume (Bld) [Entitic vol] 10.9 fL 9.5-13.5 [facility] Platelets Auto (Bld) [#/Vol] on 09-30-2023 Platelets (Bld) [#/Vol] 227 10 3/uL 150-450 [facility] Protein Auto test strip (U) [Mass/Vol]on 09-30-2023 Protein (U) [Mass/Vol] Negative NEG/TRACE [facility] Prothrombin time (PT)on 09-04 PT Coag (PPP) [Time] 12.9 s 9.0-11.6 [facility] RBC Auto (Bld) [#/Vol]on RBC (Bld) [#/Vol] 4.41 10 6/uL 4.70-6.10 [facility] Serum or plasma albumin/glob ulin mass ratioon 09-30-2023 Albumin/Globulin [Mass ratio] 0.5 {ratio} [facility] Serum or plasma anion gap de terminationon 09-30-2023 Anion gap [Moles/Vol] 25.6 mmol/L [facility] Specific gravity Auto test s trip (U) [Rel density]on 09-30-2023 Specific gravity (U) [Rel density] CLEAR CLEAR [facility] Urine bacteria detection by automated methodon 09-30-2023 Bacteria Auto Ql (U) NONE SEEN #/HPF NONE SEEN [facility] Urine glucose measurement by test strip (mass/volume)on 09-30-2023 Glucose Test strip (U) [Mass/Vol] 500 mg/dL NEGATIVE [facility] Urine hemoglobin detection b y automated test stripon 09-30-2023 Hemoglobin Auto test strip Ql (U) TRACE-I NEGATIVE [facility] Urine nitrite detection by a utomated test stripon 09-30-2023 Nitrite Auto test strip Ql (U) Negative NEGATIVE [facility] Urine sediment crystal ident ification by light microscopyon 09-30-2023 Crystals LM Nom (Urine sed) None Seen #/HPF None Seen [facility] Urine sediment leukocyte cou nt by microscopy (number/high power field)on 09-30-2023 WBC LM.HPF (Urine sed) [#/Area] NONE SEEN #/HPF NONE SEEN [facility] Urobilinogen Auto test strip (U) [Mass/Vol]on 09-30-2023 Urobilinogen Qn (U) 0.2 {Brendan'U}/dL 0.2-1.0 [facility] pH Auto test strip (U)on pH (U) 5.5 [pH] 5.0-9.0 [facility] Guy 09-21-2023 L Specimen: [id number] Received: 09/21/23 Status: COLTON Nath Num: [id number] Spec Type: Surgical Subm Dr: Paula Elias DPM, MS Tissues: A Bone Fragments - Other than Path Fracture Procedures: HE, Gross/Micro L3, Decalcification Age/ Patient Sex Location Account Attending Physician Solomon Feldman SR 58/M LABELL [id number] Paula Elias DPM, MS SPEC NUM: [id number] RECD: 09/21/23 STATUS: COLTON NATH NUM: [id number] SHAKIRA: 09/21/[address]: Paula Elias DPM, MS ENTERED: 09/21/23 [facility] DR: SPEC TYPE: Surgical DEPT: RAMSEY MARCANO ENTERED BY: [id number] RECV BY: [id number] ORDERED: HE, Gross/Micro L3, Decalcification ORDERED: HE, [...] excisional debridement with skin substitute. CPT Codes 98614, 90320 Specimen: [id number] Received: 09/21/23 Status: COLTON Tayler Num: [id number] Spec Type: Surgical Subm Dr: Paula Eilas,LINDSEY, MS Tissues: A Bone Fragments - Other than Path Fracture Procedures: LULU, Gross/Micro L3, Decalcification Patient: Solomon Feldman SR [id number] (Continued) Signed (signature on file) Victor Hugo Sotelo MD 09/26/23 1571 Normal [facility] Laboratory - Microbiology an d Antimicrobial susceptibilityOrdered By: Jenaro Lynch on 09-21-2023 Microscopic observation Gram stain Nom (Unsp spec) [facility] Activated partial thrombopla stin time (aPTT) in platelet poor plasma by coagulation aon 09-18-2023 aPTT Coag (PPP) [Time] 32.0 s 22.3-36.2 [facility] Basophils Auto (Bld) [#/Vol] on 09-18-2023 Basophils (Bld) [#/Vol] 0.1 10 3/uL 0.0-0.1 [facility] Basophils/100 WBC Auto (Bld) on 09-18-2023 Basophils/100 WBC (Bld) 0.9 % 0.2-2.0 [facility] Eosinophils/100 WBC Auto (Bl d)on 09-18-2023 Eosinophils/100 WBC (Bld) 2.3 % 0.9-7.0 [facility] Erythrocyte distribution wid th Auto (RBC) [Ratio]on 09-18-2023 Erythrocyte distribution width (RBC) [Ratio] 18.8 % 11.0-15.0 [facility] Estimated glomerular filtrat ion rate (GFR) non- Americanon 09-18-2023 GFR/1.73 sq M.predicted among non-blacks MDRD (S/P/Bld) [Vol rate/Area] 27 mL/min/{1.73_m2} >=60 [facility] Hematocrit Auto (Bld) [Volum e fraction]on 09-18-2023 Hematocrit (Bld) [Volume fraction] 35.0 % 42.0-54.0 [facility] Hemoglobin [Mass/volume] in Bloodon 09-18-2023 Hemoglobin (Bld) [Mass/Vol] 10.3 g/dL 14.0-18.0 [facility] INR in Platelet poor plasma by Coagulation assayon 09-18-2023 INR Coag (PPP) [Relative time] 1.08 {INR} [facility] Comment on above: DESIRED INR:2.0-3.0 CONDITIONS NOT LISTED BELOW2.5-3.5 FOR PROSTHETIC HEART VALVE REPLACEMENT2.5-3.5 RECURRENT THROMBOSIS Laboratory - Chemistry and C hemistry - challengeon 09-18-2023 Calcium [Mass/Vol] 8.9 mg/dL 8.5-10.1 [facility] Chloride [Moles/Vol] 97 mmol/L 98-107 [facility] CO2 [Moles/Vol] 28.2 mmol/L 21.0-32.0 [facility] Creatinine [Mass/Vol] 2.47 mg/dL 0.70-1.30 [facility] GFR/1.73 sq M.predicted MDRD (S/P/Bld) [Vol rate/Area] 33 mL/min/{1.73_m2} >=60 [facility] Glucose [Mass/Vol] 200 mg/dL 74-106 [facility] Potassium [Moles/Vol] 3.7 mmol/L 3.5-5.1 [facility] Sodium [Moles/Vol] 137 mmol/L 136-145 [facility] Urea nitrogen [Mass/Vol] 23.0 mg/dL 7.0-18.0 [facility] Urea nitrogen/Creatinine [Mass ratio] 9.3 mg/mg [facility] Laboratory - Hematology and Cell countson 09-18-2023 Immature granulocytes/100 WBC (Bld) 0.6 % 0.0-0.5 [facility] Leukocytes [#/volume] correc jorge for nucleated erythrocytes in Blood by Automated counon 09-18-2023 WBC corrected for nucl RBC Auto (Bld) [#/Vol] 12.4 10 3/uL 4.0-11.0 [facility] Lymphocytes Auto (Bld) [#/Vo l]on 09-18-2023 Lymphocytes (Bld) [#/Vol] 2.4 10 3/uL 1.2-3.8 [facility] Lymphocytes/100 WBC Auto (Bl d)on 09-18-2023 Lymphocytes/100 WBC (Bld) 19.6 % 20.5-60.0 [facility] MCH Auto (RBC) [Entitic mass ]on 09-18-2023 MCH (RBC) [Entitic mass] 22.2 pg 25.9-34.0 [facility] MCHC Auto (RBC) [Mass/Vol]on 09-18-2023 MCHC (RBC) [Mass/Vol] 29.4 g/dL 29.9-35.2 [facility] MCV Auto (RBC) [Entitic vol] on 09-18-2023 MCV (RBC) [Entitic vol] 75.3 fL 80.0-94.0 [facility] Monocytes Auto (Bld) [#/Vol] on 09-18-2023 Monocytes (Bld) [#/Vol] 1.2 10 3/uL 0.3-0.8 [facility] Monocytes/100 WBC Auto (Bld) on 09-18-2023 Monocytes/100 WBC (Bld) 10.0 % 1.7-12.0 [facility] Neutrophils Auto (Bld) [#/Vo l]on 09-18-2023 Neutrophils (Bld) [#/Vol] 8.2 10 3/uL 1.4-6.5 [facility] Neutrophils/100 WBC Auto (Bl d)on 09-18-2023 Neutrophils/100 WBC (Bld) 66.6 % 43.0-75.0 [facility] No Panel Informationon 09-17 Eosinophils # (Auto) 0.3 10 3/uL 0.0-0.7 [facility] Immature Granulocyte # (Auto) 0.07 10 3/uL 0.00-0.03 [facility] Platelet mean volume Auto (B ld) [Entitic vol]on 09-18-2023 Platelet mean volume (Bld) [Entitic vol] 10.9 fL 9.5-13.5 [facility] Platelets Auto (Bld) [#/Vol] on 09-18-2023 Platelets (Bld) [#/Vol] 300 10 3/uL 150-450 [facility] Prothrombin time (PT)on 09-03 PT Coag (PPP) [Time] 11.4 s 9.0-11.6 [facility] RBC Auto (Bld) [#/Vol]on RBC (Bld) [#/Vol] 4.65 10 6/uL 4.70-6.10 [facility] Serum or plasma anion gap de terminationon 09-18-2023 Anion gap [Moles/Vol] 15.5 mmol/L [facility] - Microbiology an d Antimicrobial susceptibilityOrdered By: Jenaro Lynch on 08-10-2023 Microscopic observation Gram stain Nom (Unsp spec) [facility] No Panel Informationon 08-09 Fungal Smear Result [facility] Miscellaneous Test Comment See comment [facility] Comment on above: Specimen Source: JONO TRT - Foot Right - Foot Rt - 604.000 No Panel InformationOrdered By: Jenaro Lynch on 08-10-2023 Acid Fast Culture [facility] Acid Fast Smear [facility] AFB Specimen Processing [facility] Tissue Culture [facility] Basophils Auto (Bld) [#/Vol] on 08-07-2023 Basophils (Bld) [#/Vol] 0.1 10 3/uL 0.0-0.1 [facility] Basophils/100 WBC Auto (Bld) on 08-07-2023 Basophils/100 WBC (Bld) 0.7 % 0.2-2.0 [facility] Eosinophils/100 WBC Auto (Bl d)on 08-07-2023 Eosinophils/100 WBC (Bld) 3.9 % 0.9-7.0 [facility] Erythrocyte distribution wid th Auto (RBC) [Ratio]on 08-07-2023 Erythrocyte distribution width (RBC) [Ratio] 16.9 % 11.0-15.0 [facility] Estimated glomerular filtrat ion rate (GFR) non- Americanon 08-07-2023 GFR/1.73 sq M.predicted among non-blacks MDRD (S/P/Bld) [Vol rate/Area] 42 mL/min/{1.73_m2} >=60 [facility] Globulin Calc (S) [Mass/Vol] on 08-07-2023 Globulin (S) [Mass/Vol] 4.0 g/dL [facility] Hematocrit Auto (Bld) [Volum e fraction]on 08-07-2023 Hematocrit (Bld) [Volume fraction] 31.5 % 42.0-54.0 [facility] Hemoglobin [Mass/volume] in Bloodon 08-07-2023 Hemoglobin (Bld) [Mass/Vol] 9.4 g/dL 14.0-18.0 [facility] Laboratory - Chemistry and C hemistry - challengeon 08-07-2023 Albumin [Mass/Vol] 2.1 g/dL 3.4-5.0 [facility] ALP [Catalytic activity/Vol] 144 U/L 46-116 [facility] ALT [Catalytic activity/Vol] 21 U/L 16-63 [facility] AST [Catalytic activity/Vol] 25 U/L 15-37 [facility] Bilirubin [Mass/Vol] 0.4 mg/dL 0.2-1.0 [facility] Calcium [Mass/Vol] 8.1 mg/dL 8.5-10.1 [facility] Chloride [Moles/Vol] 102 mmol/L 98-107 [facility] CO2 [Moles/Vol] 24.7 mmol/L 21.0-32.0 [facility] Creatinine [Mass/Vol] 1.70 mg/dL 0.70-1.30 [facility] GFR/1.73 sq M.predicted MDRD (S/P/Bld) [Vol rate/Area] 50 mL/min/{1.73_m2} >=60 [facility] Glucose [Mass/Vol] 188 mg/dL 74-106 [facility] Potassium [Moles/Vol] 4.6 mmol/L 3.5-5.1 [facility] Protein [Mass/Vol] 6.1 g/dL 6.4-8.2 [facility] Sodium [Moles/Vol] 135 mmol/L 136-145 [facility] Urea nitrogen [Mass/Vol] 33.0 mg/dL 7.0-18.0 [facility] Urea nitrogen/Creatinine [Mass ratio] 19.4 mg/mg [facility] Laboratory - Hematology and Cell countson 08-07-2023 Immature granulocytes/100 WBC (Bld) 0.7 % 0.0-0.5 [facility] Leukocytes [#/volume] correc jorge for nucleated erythrocytes in Blood by Automated counon 08-07-2023 WBC corrected for nucl RBC Auto (Bld) [#/Vol] 12.0 10 3/uL 4.0-11.0 [facility] Lymphocytes Auto (Bld) [#/Vo l]on 08-07-2023 Lymphocytes (Bld) [#/Vol] 1.5 10 3/uL 1.2-3.8 [facility] Lymphocytes/100 WBC Auto (Bl d)on 08-07-2023 Lymphocytes/100 WBC (Bld) 12.4 % 20.5-60.0 [facility] MCH Auto (RBC) [Entitic mass ]on 08-07-2023 MCH (RBC) [Entitic mass] 22.5 pg 25.9-34.0 [facility] MCHC Auto (RBC) [Mass/Vol]on 08-07-2023 MCHC (RBC) [Mass/Vol] 29.8 g/dL 29.9-35.2 [facility] MCV Auto (RBC) [Entitic vol] on 08-07-2023 MCV (RBC) [Entitic vol] 75.4 fL 80.0-94.0 [facility] Monocytes Auto (Bld) [#/Vol] on 08-07-2023 Monocytes (Bld) [#/Vol] 1.2 10 3/uL 0.3-0.8 [facility] Monocytes/100 WBC Auto (Bld) on 08-07-2023 Monocytes/100 WBC (Bld) 10.1 % 1.7-12.0 [facility] Neutrophils Auto (Bld) [#/Vo l]on 08-07-2023 Neutrophils (Bld) [#/Vol] 8.7 10 3/uL 1.4-6.5 [facility] Neutrophils/100 WBC Auto (Bl d)on 08-07-2023 Neutrophils/100 WBC (Bld) 72.2 % 43.0-75.0 [facility] No Panel Informationon 08-06 Eosinophils # (Auto) 0.5 10 3/uL 0.0-0.7 [facility] Immature Granulocyte # (Auto) 0.09 10 3/uL 0.00-0.03 [facility] Platelet mean volume Auto (B ld) [Entitic vol]on 08-07-2023 Platelet mean volume (Bld) [Entitic vol] 11.7 fL 9.5-13.5 [facility] Platelets Auto (Bld) [#/Vol] on 08-07-2023 Platelets (Bld) [#/Vol] 222 10 3/uL 150-450 [facility] RBC Auto (Bld) [#/Vol]on RBC (Bld) [#/Vol] 4.18 10 6/uL 4.70-6.10 [facility] Serum or plasma albumin/glob ulin mass ratioon 08-07-2023 Albumin/Globulin [Mass ratio] 0.5 {ratio} [facility] Serum or plasma anion gap de terminationon 08-07-2023 Anion gap [Moles/Vol] 12.9 mmol/L [facility] Basophils Auto (Bld) [#/Vol] on 08-06-2023 Basophils (Bld) [#/Vol] 0.1 10 3/uL 0.0-0.1 [facility] Basophils/100 WBC Auto (Bld) on 08-06-2023 Basophils/100 WBC (Bld) 0.7 % 0.2-2.0 [facility] Eosinophils/100 WBC Auto (Bl d)on 08-06-2023 Eosinophils/100 WBC (Bld) 3.3 % 0.9-7.0 [facility] Erythrocyte distribution wid th Auto (RBC) [Ratio]on 08-06-2023 Erythrocyte distribution width (RBC) [Ratio] 17.0 % 11.0-15.0 [facility] Estimated glomerular filtrat ion rate (GFR) non- Americanon 08-06-2023 GFR/1.73 sq M.predicted among non-blacks MDRD (S/P/Bld) [Vol rate/Area] 36 mL/min/{1.73_m2} >=60 [facility] Globulin Calc (S) [Mass/Vol] on 08-06-2023 Globulin (S) [Mass/Vol] 4.0 g/dL [facility] Hematocrit Auto (Bld) [Volum e fraction]on 08-06-2023 Hematocrit (Bld) [Volume fraction] 30.1 % 42.0-54.0 [facility] Hemoglobin [Mass/volume] in Bloodon 08-06-2023 Hemoglobin (Bld) [Mass/Vol] 8.8 g/dL 14.0-18.0 [facility] Laboratory - Chemistry and C hemistry - challengeon 08-06-2023 Albumin [Mass/Vol] 2.0 g/dL 3.4-5.0 [facility] ALP [Catalytic activity/Vol] 127 U/L 46-116 [facility] ALT [Catalytic activity/Vol] 14 U/L 16-63 [facility] AST [Catalytic activity/Vol] 16 U/L 15-37 [facility] Bilirubin [Mass/Vol] 0.4 mg/dL 0.2-1.0 [facility] Calcium [Mass/Vol] 7.9 mg/dL 8.5-10.1 [facility] Chloride [Moles/Vol] 99 mmol/L 98-107 [facility] CO2 [Moles/Vol] 25.0 mmol/L 21.0-32.0 [facility] Creatinine [Mass/Vol] 1.95 mg/dL 0.70-1.30 [facility] GFR/1.73 sq M.predicted MDRD (S/P/Bld) [Vol rate/Area] 43 mL/min/{1.73_m2} >=60 [facility] Glucose [Mass/Vol] 297 mg/dL 74-106 [facility] Potassium [Moles/Vol] 4.4 mmol/L 3.5-5.1 [facility] Protein [Mass/Vol] 6.0 g/dL 6.4-8.2 [facility] Sodium [Moles/Vol] 133 mmol/L 136-145 [facility] Urea nitrogen [Mass/Vol] 28.0 mg/dL 7.0-18.0 [facility] Urea nitrogen/Creatinine [Mass ratio] 14.4 mg/mg [facility] Laboratory - Hematology and Cell countson 08-06-2023 Immature granulocytes/100 WBC (Bld) 0.4 % 0.0-0.5 [facility] Leukocytes [#/volume] correc jorge for nucleated erythrocytes in Blood by Automated counon 08-06-2023 WBC corrected for nucl RBC Auto (Bld) [#/Vol] 10.1 10 3/uL 4.0-11.0 [facility] Lymphocytes Auto (Bld) [#/Vo l]on 08-06-2023 Lymphocytes (Bld) [#/Vol] 1.5 10 3/uL 1.2-3.8 [facility] Lymphocytes/100 WBC Auto (Bl d)on 08-06-2023 Lymphocytes/100 WBC (Bld) 14.4 % 20.5-60.0 [facility] MCH Auto (RBC) [Entitic mass ]on 08-06-2023 MCH (RBC) [Entitic mass] 22.5 pg 25.9-34.0 [facility] MCHC Auto (RBC) [Mass/Vol]on 08-06-2023 MCHC (RBC) [Mass/Vol] 29.2 g/dL 29.9-35.2 [facility] MCV Auto (RBC) [Entitic vol] on 08-06-2023 MCV (RBC) [Entitic vol] 77.0 fL 80.0-94.0 [facility] Monocytes Auto (Bld) [#/Vol] on 08-06-2023 Monocytes (Bld) [#/Vol] 1.1 10 3/uL 0.3-0.8 [facility] Monocytes/100 WBC Auto (Bld) on 08-06-2023 Monocytes/100 WBC (Bld) 10.4 % 1.7-12.0 [facility] Neutrophils Auto (Bld) [#/Vo l]on 08-06-2023 Neutrophils (Bld) [#/Vol] 7.2 10 3/uL 1.4-6.5 [facility] Neutrophils/100 WBC Auto (Bl d)on 08-06-2023 Neutrophils/100 WBC (Bld) 70.8 % 43.0-75.0 [facility] No Panel Informationon 08-05 Vancomycin Level Trough 13.6 ug/mL 5.0-20.0 [facility] Eosinophils # (Auto) 0.3 10 3/uL 0.0-0.7 [facility] Immature Granulocyte # (Auto) 0.04 10 3/uL 0.00-0.03 [facility] Platelet mean volume Auto (B ld) [Entitic vol]on 08-06-2023 Platelet mean volume (Bld) [Entitic vol] 12.2 fL 9.5-13.5 [facility] Platelets Auto (Bld) [#/Vol] on 08-06-2023 Platelets (Bld) [#/Vol] 190 10 3/uL 150-450 [facility] RBC Auto (Bld) [#/Vol]on RBC (Bld) [#/Vol] 3.91 10 6/uL 4.70-6.10 [facility] Serum or plasma albumin/glob ulin mass ratioon 08-06-2023 Albumin/Globulin [Mass ratio] 0.5 {ratio} [facility] Serum or plasma anion gap de terminationon 08-06-2023 Anion gap [Moles/Vol] 13.4 mmol[facility] Automated epithelial cells c ount in urine sediment (number/area)on 08-05-2023 Epithelial cells Auto (Urine sed) [#/Area] RARE #/LPF NONE/RARE [facility] Automated leukocytes count i n urine sediment (number/area)on 08-05-2023 WBC Auto (Urine sed) [#/Area] NONE SEEN #/HPF 0-2 [facility] Automated urine specific gra vity by refractometryon 08-05-2023 Specific gravity Refractometry automated (U) [Rel density] <=1.005 1.005-1.02 5 [facility] Basophils Auto (Bld) [#/Vol] on 08-05-2023 Basophils (Bld) [#/Vol] 0.1 10 3/uL 0.0-0.1 [facility] Basophils/100 WBC Auto (Bld) on 08-05-2023 Basophils/100 WBC (Bld) 0.7 % 0.2-2.0 [facility] Bilirubin Auto test strip (U ) [Mass/Vol]on 08-05-2023 Bilirubin (U) [Mass/Vol] Negative NEGATIVE [facility] Casts typing in urine sedime nt by light microscopyon 08-05-2023 Casts LM Nom (Urine sed) NONE SEEN #/LPF NONE SEEN [facility] Color Auto (U)on 08-05-2023 Color (U) LT. YELLOW YELLOW [facility] Eosinophils/100 WBC Auto (Bl d)on 08-05-2023 Eosinophils/100 WBC (Bld) 2.5 % 0.9-7.0 [facility] Erythrocyte distribution wid th Auto (RBC) [Ratio]on 08-05-2023 Erythrocyte distribution width (RBC) [Ratio] 16.8 % 11.0-15.0 [facility] Estimated glomerular filtrat ion rate (GFR) non- Americanon 08-05-2023 GFR/1.73 sq M.predicted among non-blacks MDRD (S/P/Bld) [Vol rate/Area] 42 mL/min/{1.73_m2} >=60 [facility] Globulin Calc (S) [Mass/Vol] on 08-05-2023 Globulin (S) [Mass/Vol] 4.1 g/dL [facility] Glucose mean value [Mass/vol ume] in Blood Estimated from glycated hemoglobinon 08-05-2023 Average glucose Estimated from glycated hemoglobin (Bld) [Mass/Vol] 214 mg/dL [facility] Hematocrit Auto (Bld) [Volum e fraction]on 08-05-2023 Hematocrit (Bld) [Volume fraction] 31.8 % 42.0-54.0 [facility] Hemoglobin [Mass/volume] in Bloodon 08-05-2023 Hemoglobin (Bld) [Mass/Vol] 9.4 g/dL 14.0-18.0 [facility] Ketones Auto test strip (U) [Mass/Vol]on 08-05-2023 Ketones (U) [Mass/Vol] Negative NEGATIVE [facility] - Chemistry and C hemistry - challengeon 08-05-2023 Albumin [Mass/Vol] 2.3 g/dL 3.4-5.0 [facility] ALP [Catalytic activity/Vol] 111 U/L 46-116 [facility] ALT [Catalytic activity/Vol] 11 U/L 16-63 [facility] AST [Catalytic activity/Vol] 11 U/L 15-37 [facility] Bilirubin [Mass/Vol] 0.5 mg/dL 0.2-1.0 [facility] Calcium [Mass/Vol] 8.1 mg/dL 8.5-10.1 [facility] Chloride [Moles/Vol] 101 mmol/L 98-107 [facility] CO2 [Moles/Vol] 25.6 mmol/L 21.0-32.0 [facility] Creatinine [Mass/Vol] 1.68 mg/dL 0.70-1.30 [facility] GFR/1.73 sq M.predicted MDRD (S/P/Bld) [Vol rate/Area] 51 mL/min/{1.73_m2} >=60 [facility] Glucose [Mass/Vol] 111 mg/dL 74-106 [facility] Potassium [Moles/Vol] 3.7 mmol/L 3.5-5.1 [facility] Protein [Mass/Vol] 6.4 g/dL 6.4-8.2 [facility] Sodium [Moles/Vol] 138 mmol/L 136-145 [facility] Urea nitrogen [Mass/Vol] 17.0 mg/dL 7.0-18.0 [facility] Urea nitrogen/Creatinine [Mass ratio] 10.1 mg/mg [facility] Laboratory - Hematology and Cell countson 08-05-2023 HbA1c (Bld) [Mass fraction] 9.1 % 4.5-6.2 [facility] Comment on above: ADA RECOMMENDED LIMI T 4.0 - 6.0ADA THERAPEUTIC TARGET < 7.0ACTION SUGGESTED> 7.0 Immature granulocytes/100 WBC (Bld) 0.4 % 0.0-0.5 [facility] Laboratory - Microbiology an d Antimicrobial susceptibilityOrdered By: Jenaro Lynch on 08-05-2023 Microscopic observation Gram stain Nom (Unsp spec) [facility] Leukocytes [#/volume] correc jorge for nucleated erythrocytes in Blood by Automated counon 08-05-2023 WBC corrected for nucl RBC Auto (Bld) [#/Vol] 12.3 10 3/uL 4.0-11.0 [facility] Lymphocytes Auto (Bld) [#/Vo l]on 08-05-2023 Lymphocytes (Bld) [#/Vol] 1.5 10 3/uL 1.2-3.8 [facility] Lymphocytes/100 WBC Auto (Bl d)on 08-05-2023 Lymphocytes/100 WBC (Bld) 11.8 % 20.5-60.0 [facility] MCH Auto (RBC) [Entitic mass ]on 08-05-2023 MCH (RBC) [Entitic mass] 22.4 pg 25.9-34.0 [facility] MCHC Auto (RBC) [Mass/Vol]on 08-05-2023 MCHC (RBC) [Mass/Vol] 29.6 g/dL 29.9-35.2 [facility] MCV Auto (RBC) [Entitic vol] on 08-05-2023 MCV (RBC) [Entitic vol] 75.9 fL 80.0-94.0 [facility] Monocytes Auto (Bld) [#/Vol] on 08-05-2023 Monocytes (Bld) [#/Vol] 1.3 10 3/uL 0.3-0.8 [facility] Monocytes/100 WBC Auto (Bld) on 08-05-2023 Monocytes/100 WBC (Bld) 10.7 % 1.7-12.0 [facility] Mucus LM Ql (Urine sed)on Mucus Ql (Urine sed) NONE SEEN NONE SEEN [facility] Neutrophils Auto (Bld) [#/Vo l]on 08-05-2023 Neutrophils (Bld) [#/Vol] 9.1 10 3/uL 1.4-6.5 [facility] Neutrophils/100 WBC Auto (Bl d)on 08-05-2023 Neutrophils/100 WBC (Bld) 73.9 % 43.0-75.0 [facility] No Panel Informationon 08-04 Eosinophils # (Auto) 0.3 10 3/uL 0.0-0.7 [facility] Immature Granulocyte # (Auto) 0.05 10 3/uL 0.00-0.03 [facility] Platelet mean volume Auto (B ld) [Entitic vol]on 08-05-2023 Platelet mean volume (Bld) [Entitic vol] 11.2 fL 9.5-13.5 [facility] Platelets Auto (Bld) [#/Vol] on 08-05-2023 Platelets (Bld) [#/Vol] 184 10 3/uL 150-450 [facility] Protein Auto test strip (U) [Mass/Vol]on 08-05-2023 Protein (U) [Mass/Vol] Negative NEG/TRACE [facility] RBC Auto (Bld) [#/Vol]on RBC (Bld) [#/Vol] 4.19 10 6/uL 4.70-6.10 [facility] Serum or plasma albumin/glob ulin mass ratioon 08-05-2023 Albumin/Globulin [Mass ratio] 0.6 {ratio} [facility] Serum or plasma anion gap de terminationon 08-05-2023 Anion gap [Moles/Vol] 15.1 mmol/L [facility] Specific gravity Auto test s trip (U) [Rel density]on 08-05-2023 Specific gravity (U) [Rel density] CLEAR CLEAR [facility] Urine bacteria detection by automated methodon 08-05-2023 Bacteria Auto Ql (U) TRACE #/HPF NONE SEEN [facility] Urine glucose measurement by test strip (mass/volume)on 08-05-2023 Glucose Test strip (U) [Mass/Vol] >=1000 mg/dL NEGATIVE [facility] Urine hemoglobin detection b y automated test stripon 08-05-2023 Hemoglobin Auto test strip Ql (U) Negative NEGATIVE [facility] Urine nitrite detection by a utomated test stripon 08-05-2023 Nitrite Auto test strip Ql (U) Negative NEGATIVE [facility] Urine sediment crystal ident ification by light microscopyon 08-05-2023 Crystals LM Nom (Urine sed) None Seen #/HPF None Seen [facility] Urine sediment leukocyte cou nt by microscopy (number/high power field)on 08-05-2023 WBC LM.HPF (Urine sed) [#/Area] NONE SEEN #/HPF NONE SEEN [facility] Urobilinogen Auto test strip (U) [Mass/Vol]on 08-05-2023 Urobilinogen Qn (U) 0.2 {Brendan'U}/dL 0.2-1.0 [facility] pH Auto test strip (U)on pH (U) 6.0 [pH] 5.0-9.0 [facility] Basophils Auto (Bld) [#/Vol] on 08-04-2023 Basophils (Bld) [#/Vol] 0.1 10 3/uL 0.0-0.1 [facility] Basophils/100 WBC Auto (Bld) on 08-04-2023 Basophils/100 WBC (Bld) 0.8 % 0.2-2.0 [facility] Eosinophils/100 WBC Auto (Bl d)on 08-04-2023 Eosinophils/100 WBC (Bld) 2.8 % 0.9-7.0 [facility] Erythrocyte distribution wid th Auto (RBC) [Ratio]on 08-04-2023 Erythrocyte distribution width (RBC) [Ratio] 16.9 % 11.0-15.0 [facility] Estimated glomerular filtrat ion rate (GFR) non- Americanon 08-04-2023 GFR/1.73 sq M.predicted among non-blacks MDRD (S/P/Bld) [Vol rate/Area] 33 mL/min/{1.73_m2} >=60 [facility] Globulin Calc (S) [Mass/Vol] on 08-04-2023 Globulin (S) [Mass/Vol] 4.4 g/dL [facility] Hematocrit Auto (Bld) [Volum e fraction]on 08-04-2023 Hematocrit (Bld) [Volume fraction] 32.6 % 42.0-54.0 [facility] Hemoglobin [Mass/volume] in Bloodon 08-04-2023 Hemoglobin (Bld) [Mass/Vol] 9.6 g/dL 14.0-18.0 [facility] INR in Platelet poor plasma by Coagulation assayon 08-04-2023 INR Coag (PPP) [Relative time] 1.05 {INR} [facility] Comment on above: DESIRED INR:2.0-3.0 CONDITIONS NOT LISTED BELOW2.5-3.5 FOR PROSTHETIC HEART VALVE REPLACEMENT2.5-3.5 RECURRENT THROMBOSIS Laboratory - Chemistry and C hemistry - challengeon 08-04-2023 Albumin [Mass/Vol] 2.4 g/dL 3.4-5.0 [facility] ALP [Catalytic activity/Vol] 109 U/L 46-116 [facility] ALT [Catalytic activity/Vol] 9 U/L 16-63 [facility] AST [Catalytic activity/Vol] U/L 15-37 [facility] Bilirubin [Mass/Vol] 0.4 mg/dL 0.2-1.0 [facility] Calcium [Mass/Vol] 8.0 mg/dL 8.5-10.1 [facility] Chloride [Moles/Vol] 96 mmol/L 98-107 [facility] CO2 [Moles/Vol] 29.2 mmol/L 21.0-32.0 [facility] Creatinine [Mass/Vol] 2.06 mg/dL 0.70-1.30 [facility] GFR/1.73 sq M.predicted MDRD (S/P/Bld) [Vol rate/Area] 40 mL/min/{1.73_m2} >=60 [facility] Glucose [Mass/Vol] 329 mg/dL 74-106 [facility] Potassium [Moles/Vol] 3.5 mmol/L 3.5-5.1 [facility] Protein [Mass/Vol] 6.8 g/dL 6.4-8.2 [facility] Sodium [Moles/Vol] 132 mmol/L 136-145 [facility] Urea nitrogen [Mass/Vol] 20.0 mg/dL 7.0-18.0 [facility] Urea nitrogen/Creatinine [Mass ratio] 9.7 mg/mg [facility] Laboratory - Hematology and Cell countson 08-04-2023 ESR (Bld) [Velocity] 89 mm/h <=20 [facility] Immature granulocytes/100 WBC (Bld) 0.3 % 0.0-0.5 [facility] Laboratory - Microbiology an d Antimicrobial susceptibilityOrdered By: Jenaro Lynch on 08-04-2023 Microscopic observation Gram stain Nom (Unsp spec) [facility] Leukocytes [#/volume] correc jorge for nucleated erythrocytes in Blood by Automated counon 08-04-2023 WBC corrected for nucl RBC Auto (Bld) [#/Vol] 11.6 10 3/uL 4.0-11.0 [facility] Lymphocytes Auto (Bld) [#/Vo l]on 08-04-2023 Lymphocytes (Bld) [#/Vol] 1.7 10 3/uL 1.2-3.8 [facility] Lymphocytes/100 WBC Auto (Bl d)on 08-04-2023 Lymphocytes/100 WBC (Bld) 14.9 % 20.5-60.0 [facility] MCH Auto (RBC) [Entitic mass ]on 08-04-2023 MCH (RBC) [Entitic mass] 22.3 pg 25.9-34.0 [facility] MCHC Auto (RBC) [Mass/Vol]on 08-04-2023 MCHC (RBC) [Mass/Vol] 29.4 g/dL 29.9-35.2 [facility] MCV Auto (RBC) [Entitic vol] on 08-04-2023 MCV (RBC) [Entitic vol] 75.8 fL 80.0-94.0 [facility] Monocytes Auto (Bld) [#/Vol] on 08-04-2023 Monocytes (Bld) [#/Vol] 1.2 10 3/uL 0.3-0.8 [facility] Monocytes/100 WBC Auto (Bld) on 08-04-2023 Monocytes/100 WBC (Bld) 10.4 % 1.7-12.0 [facility] Neutrophils Auto (Bld) [#/Vo l]on 08-04-2023 Neutrophils (Bld) [#/Vol] 8.2 10 3/uL 1.4-6.5 [facility] Neutrophils/100 WBC Auto (Bl d)on 08-04-2023 Neutrophils/100 WBC (Bld) 70.8 % 43.0-75.0 [facility] No Panel InformationOrdered By: Jenaro Lynch on 08-04-2023 Blood Culture 2 [facility] Blood Culture 1 [facility] Wound Culture [facility] No Panel Informationon 08-03 Aerobic & Anaerobic Susceptibility [facility] Miscellaneous Test Comment See comment [facility] Comment on above: Specimen Source: JONO T - Foot - Foot - 603.950 C-Reactive Protein, Quantitative 11.62 mg/dL <=0.50 [facility] Eosinophils # (Auto) 0.3 10 3/uL 0.0-0.7 [facility] Immature Granulocyte # (Auto) 0.04 10 3/uL 0.00-0.03 [facility] Platelet mean volume Auto (B ld) [Entitic vol]on 08-04-2023 Platelet mean volume (Bld) [Entitic vol] 11.5 fL 9.5-13.5 [facility] Platelets Auto (Bld) [#/Vol] on 08-04-2023 Platelets (Bld) [#/Vol] 206 10 3/uL 150-450 [facility] Prothrombin time (PT)on PT Coag (PPP) [Time] 11.1 s 9.0-11.6 [facility] RBC Auto (Bld) [#/Vol]on RBC (Bld) [#/Vol] 4.30 10 6/uL 4.70-6.10 [facility] Serum or plasma albumin/glob ulin mass ratioon 08-04-2023 Albumin/Globulin [Mass ratio] 0.5 {ratio} [facility] Serum or plasma anion gap de terminationon 08-04-2023 Anion gap [Moles/Vol] 10.3 mmol/L [facility] Serum procalcitonin measurem enton 08-04-2023 Procalcitonin [Mass/Vol] 0.10 ng/mL 0.00-0.50 [facility] Basophils Auto (Bld) [#/Vol] on 08-03-2023 Basophils (Bld) [#/Vol] 0.1 10 3/uL 0.0-0.1 [facility] Basophils/100 WBC Auto (Bld) on 08-03-2023 Basophils/100 WBC (Bld) 0.7 % 0.2-2.0 [facility] Eosinophils/100 WBC Auto (Bl d)on 08-03-2023 Eosinophils/100 WBC (Bld) 1.8 % 0.9-7.0 [facility] Erythrocyte distribution wid th Auto (RBC) [Ratio]on 08-03-2023 Erythrocyte distribution width (RBC) [Ratio] 17.0 % 11.0-15.0 [facility] Estimated glomerular filtrat ion rate (GFR) non- Americanon 08-03-2023 GFR/1.73 sq M.predicted among non-blacks MDRD (S/P/Bld) [Vol rate/Area] 27 mL/min/{1.73_m2} >=60 [facility] Globulin Calc (S) [Mass/Vol] on 08-03-2023 Globulin (S) [Mass/Vol] 5.0 g/dL [facility] Hematocrit Auto (Bld) [Volum e fraction]on 08-03-2023 Hematocrit (Bld) [Volume fraction] 38.9 % 42.0-54.0 [facility] Hemoglobin [Mass/volume] in Bloodon 08-03-2023 Hemoglobin (Bld) [Mass/Vol] 11.8 g/dL 14.0-18.0 [facility] Laboratory - Chemistry and C hemistry - challengeon 08-03-2023 Lactate [Moles/Vol] 1.6 mmol/L 0.4-2.0 [facility] Albumin [Mass/Vol] 3.3 g/dL 3.4-5.0 [facility] ALP [Catalytic activity/Vol] 134 U/L 46-116 [facility] ALT [Catalytic activity/Vol] 13 U/L 16-63 [facility] AST [Catalytic activity/Vol] U/L 15-37 [facility] Bilirubin [Mass/Vol] 0.6 mg/dL 0.2-1.0 [facility] Calcium [Mass/Vol] 9.3 mg/dL 8.5-10.1 [facility] Chloride [Moles/Vol] 92 mmol/L 98-107 [facility] CO2 [Moles/Vol] 31.0 mmol/L 21.0-32.0 [facility] Creatinine [Mass/Vol] 2.45 mg/dL 0.70-1.30 [facility] GFR/1.73 sq M.predicted MDRD (S/P/Bld) [Vol rate/Area] 33 mL/min/{1.73_m2} >=60 [facility] Glucose [Mass/Vol] 310 mg/dL 74-106 [facility] Potassium [Moles/Vol] 3.7 mmol/L 3.5-5.1 [facility] Protein [Mass/Vol] 8.3 g/dL 6.4-8.2 [facility] Sodium [Moles/Vol] 133 mmol/L 136-145 [facility] Urea nitrogen [Mass/Vol] 23.0 mg/dL 7.0-18.0 [facility] Urea nitrogen/Creatinine [Mass ratio] 9.4 mg/mg [facility] Laboratory - Hematology and Cell countson 08-03-2023 ESR (Bld) [Velocity] 118 mm/h <=20 [facility] Immature granulocytes/100 WBC (Bld) 0.4 % 0.0-0.5 [facility] Leukocytes [#/volume] correc jorge for nucleated erythrocytes in Blood by Automated counon 08-03-2023 WBC corrected for nucl RBC Auto (Bld) [#/Vol] 14.6 10 3/uL 4.0-11.0 [facility] Lymphocytes Auto (Bld) [#/Vo l]on 08-03-2023 Lymphocytes (Bld) [#/Vol] 2.1 10 3/uL 1.2-3.8 [facility] Lymphocytes/100 WBC Auto (Bl d)on 08-03-2023 Lymphocytes/100 WBC (Bld) 14.3 % 20.5-60.0 [facility] MCH Auto (RBC) [Entitic mass ]on 08-03-2023 MCH (RBC) [Entitic mass] 22.6 pg 25.9-34.0 [facility] MCHC Auto (RBC) [Mass/Vol]on 08-03-2023 MCHC (RBC) [Mass/Vol] 30.3 g/dL 29.9-35.2 [facility] MCV Auto (RBC) [Entitic vol] on 08-03-2023 MCV (RBC) [Entitic vol] 74.4 fL 80.0-94.0 [facility] Monocytes Auto (Bld) [#/Vol] on 08-03-2023 Monocytes (Bld) [#/Vol] 1.4 10 3/uL 0.3-0.8 [facility] Monocytes/100 WBC Auto (Bld) on 08-03-2023 Monocytes/100 WBC (Bld) 9.4 % 1.7-12.0 [facility] Neutrophils Auto (Bld) [#/Vo l]on 08-03-2023 Neutrophils (Bld) [#/Vol] 10.7 10 3/uL 1.4-6.5 [facility] Neutrophils/100 WBC Auto (Bl d)on 08-03-2023 Neutrophils/100 WBC (Bld) 73.4 % 43.0-75.0 [facility] No Panel Informationon C-Reactive Protein, Quantitative 14.63 mg/dL <=0.50 [facility] Eosinophils # (Auto) 0.3 10 3/uL 0.0-0.7 [facility] Immature Granulocyte # (Auto) 0.06 10 3/uL 0.00-0.03 [facility] Venous Blood Partial Pressure CO2 44.8 mm[Hg] 40.0-52.0 [facility] Venous Blood pH 7.432 7.330-7.43 0 [facility] No Panel InformationOrdered By: Jenaro Lynch on 08-03-2023 Blood Culture 2 [facility] Blood Culture 1 [facility] Platelet mean volume Auto (B ld) [Entitic vol]on 08-03-2023 Platelet mean volume (Bld) [Entitic vol] 11.4 fL 9.5-13.5 [facility] Platelets Auto (Bld) [#/Vol] on 08-03-2023 Platelets (Bld) [#/Vol] 252 10 3/uL 150-450 [facility] RBC Auto (Bld) [#/Vol]on RBC (Bld) [#/Vol] 5.23 10 6/uL 4.70-6.10 [facility] Serum or plasma albumin/glob ulin mass ratioon 08-03-2023 Albumin/Globulin [Mass ratio] 0.7 {ratio} [facility] Serum or plasma anion gap de terminationon 08-03-2023 Anion gap [Moles/Vol] 13.7 mmol/L [facility] US venous duplex LE BIon US venous duplex LE BI [facility] [place] [address] Ultrasound Report Signed Patient: Solomon Feldman SR MR#: [id number] : 1965 Acct:[id number] Age/Sex: 57 / M ADM Date: 07/12/23 [...] MD07/13/2023 11:56 AM Dictation Location: [place] [address] Tech: Nancy Pantoja Transcribed By: BOB 07/13/23 1156 Dictated By: Howard Boss MD 07/13/23 1156 Signed By: 07/13/23 1156 Normal [facility] US venous duplex UE LTon US venous duplex UE LT [facility] [address] [place] [id number] Ultrasound Report Signed Patient: Solomon Feldman SR MR#: [id number] : 1965 Acct:[id number] Age/Sex: 57 / M ADM Date: 07/12/23 [...] MD07/13/2023 11:56 AM Dictation Location: [place] [address] Tech: Nancy Pantoja Transcribed By: BOB 07/13/23 1156 Dictated By: Howard Boss MD 07/13/23 1155 Signed By: 07/13/23 1156 Normal [facility] Activated partial thrombopla stin time (aPTT) in platelet poor plasma by coagulation aOrdered By: Nancy Wilson on 07-12-2023 aPTT Coag (PPP) [Time] 29.4 s 25.1-36.5 [facility] Comment on above: A hematocrit value g reater than 55% may lead to inaccurate results in coagulation testing. Patients having hematocrit values >55% require a special collection tube for coagulation studies. Please contact the laboratory at [phone] for redraw instructions. Alanine aminotransferase [En zymatic activity/volume] in Serum or PlasmaOrdered By: Nancy Wilson on 07-12-2023 ALT [Catalytic activity/Vol] 9 U/L 7-52 [facility] Albumin [Mass/volume] in Ser um or Plasma by Bromocresol green (BCG) dye binding methoOrdered By: Nancy Wilson on 07-12-2023 Albumin BCG dye [Mass/Vol] 3.9 g/dL 3.5-5.7 [facility] Alkaline phosphatase [Enzyma tic activity/volume] in Serum or PlasmaOrdered By: Nancy Wilson on 07-12-2023 ALP [Catalytic activity/Vol] 106 U/L 34-104 [facility] Aspartate aminotransferase [ Enzymatic activity/volume] in Serum or PlasmaOrdered By: Nancy Wilson on 07-12-2023 AST [Catalytic activity/Vol] 8 U/L 13-39 [facility] B-Type Natriuretic Peptideon 07-12-2023 Natriuretic peptide B (Bld) [Mass/Vol] 34.0 pg/mL Normal 5-100 [facility] Comment on above: Result Comment: PERF ORMED BY: [place] [id number] PATHOLOGIST [employer] CLIFFORD LOBATO M.D. Performed By: #### P TT, CBC, PT, BNP, CMP, HS TROP, CK #### [facility] [address] [place] [address] [facility] Basophils Auto (Bld) [#/Vol] Ordered By: Nancy Wilson on 07-12-2023 Basophils (Bld) [#/Vol] 0.1 10*3/uL 0.0-0.2 [facility] Basophils/100 WBC Auto (Bld) Ordered By: Nancy Wilson on 07-12-2023 Basophils/100 WBC (Bld) 1.1 % . [facility] Bilirubin.total [Mass/volume ] in Serum or PlasmaOrdered By: Nancy Wilson on 07-12-2023 Bilirubin [Mass/Vol] 0.4 mg/dL 0.3-1.0 [facility] Calcium [Mass/volume] in Ser um or PlasmaOrdered By: Nancy Wilson on 07-12-2023 Calcium [Mass/Vol] 8.5 mg/dL 8.6-10.3 [facility] Carbon dioxide, total [Moles /volume] in Serum or PlasmaOrdered By: Nancy Wilson on 07-12-2023 CO2 [Moles/Vol] 24.5 mmol/L 21.0-31.0 [facility] Chloride [Moles/volume] in S ilia or PlasmaOrdered By: Nancy Wilson on 07-12-2023 Chloride [Moles/Vol] 102 mmol/L 98-107 [facility] Complete Blood Count Auto Di ffon 07-12-2023 Basophils (Bld) [#/Vol] 0.1 10*3/uL Normal 0.0-0.2 [facility] Comment on above: Result Comment: PERF ORMED BY: [facility] [address] [place] [id number] PATHOLOGIST [employer] CLIFFORD LOBATO M.D. Performed By: #### P TT, CBC, PT, BNP, CMP, HS TROP, CK #### [address] Basophils/100 WBC (Bld) 1.1 % Normal . [facility] Comment on above: Performed By: #### P TT, CBC, PT, BNP, CMP, HS TROP, CK #### [address] Eosinophils (Bld) [#/Vol] 0.3 10*3/uL Normal 0.0-0.45 [facility] Comment on above: Performed By: #### P TT, CBC, PT, BNP, CMP, HS TROP, CK #### [address] Eosinophils/100 WBC (Bld) 3.3 % Normal . [facility] Comment on above: Performed By: #### P TT, CBC, PT, BNP, CMP, HS TROP, CK #### [address] Erythrocyte distribution width (RBC) [Ratio] 17.1 % High 12.0-14.8 [facility] Comment on above: Performed By: #### P TT, CBC, PT, BNP, CMP, HS TROP, CK #### [address] Hematocrit (Bld) [Volume fraction] 32.7 % Low 38.8-50.0 [facility] Comment on above: Performed By: #### P TT, CBC, PT, BNP, CMP, HS TROP, CK #### [address] Hemoglobin (Bld) [Mass/Vol] 10.6 g/dL Low 13.0-17.0 [facility] Comment on above: Performed By: #### P TT, CBC, PT, BNP, CMP, HS TROP, CK #### [place] [address] [place] Lymphocytes (Bld) [#/Vol] 1.9 10*3/uL Normal 1.00-4.8 [facility] Comment on above: Performed By: #### P TT, CBC, PT, BNP, CMP, HS TROP, CK #### [address] Lymphocytes/100 WBC (Bld) 20.0 % Normal . [facility] Comment on above: Performed By: #### P TT, CBC, PT, BNP, CMP, HS TROP, CK #### [address] MCH (RBC) [Entitic mass] 22.8 pg Low 27.5-35.2 [facility] Comment on above: Performed By: #### P TT, CBC, PT, BNP, CMP, HS TROP, CK #### [address] MCV (RBC) [Entitic vol] 70.6 fL Low 83.5-101 [facility] Comment on above: Performed By: #### P TT, CBC, PT, BNP, CMP, HS TROP, CK #### [address] Mean Corpuscular HGB Conc 32.4 g/dL Low 32.5-35.6 [facility] Comment on above: Performed By: #### P TT, CBC, PT, BNP, CMP, HS TROP, CK #### [address] Monocytes (Bld) [#/Vol] 1.0 10*3/uL High 0.0-0.8 [facility] Comment on above: Performed By: #### P TT, CBC, PT, BNP, CMP, HS TROP, CK #### [address] Monocytes/100 WBC (Bld) 18.12 % Normal 0.00-20.00 [facility] Comment on above: Performed By: #### P TT, CBC, PT, BNP, CMP, HS TROP, CK #### [address] Monocytes/100 WBC (Bld) 10.2 % Normal . [facility] Comment on above: Performed By: #### P TT, CBC, PT, BNP, CMP, HS TROP, CK #### [address] Neutrophils (Bld) [#/Vol] 6.2 10*3/uL Normal 1.8-7.7 [facility] Comment on above: Performed By: #### P TT, CBC, PT, BNP, CMP, HS TROP, CK #### [address] Neutrophils/100 WBC (Bld) 65.4 % Normal . [facility] Comment on above: Performed By: #### P TT, CBC, PT, BNP, CMP, HS TROP, CK #### [address] NRBC% 0.1 /100{WBC} Normal 0-0.5 [facility] Comment on above: Performed By: #### P TT, CBC, PT, BNP, CMP, HS TROP, CK #### [address] Platelet mean volume (Bld) [Entitic vol] 9.1 fL Normal 6.6-10.1 [facility] Comment on above: Performed By: #### P TT, CBC, PT, BNP, CMP, HS TROP, CK #### [place] [address] [place] Platelets (Bld) [#/Vol] 233 10*3/uL Normal 150-450 [facility] Comment on above: Performed By: #### P TT, CBC, PT, BNP, CMP, HS TROP, CK #### [place] [address] [place] RBC (Bld) [#/Vol] 4.63 10*6/uL Normal 3.90-5.60 [facility] Comment on above: Performed By: #### P TT, CBC, PT, BNP, CMP, HS TROP, CK #### [address] WBC (Bld) [#/Vol] 9.5 10*3/uL Normal 4.1-10.5 The [facility] Comment on above: Performed By: #### P TT, CBC, PT, BNP, CMP, HS TROP, CK #### [address] Comprehensive Metabolic Pane guy 07-12-2023 Albumin [Mass/Vol] 3.9 g/dL Normal 3.5-5.7 The [facility] Comment on above: Performed By: #### P TT, CBC, PT, BNP, CMP, HS TROP, CK #### [address] Albumin/Globulin [Mass ratio] 1.3 {ratio} Normal [facility] Comment on above: Performed By: #### P TT, CBC, PT, BNP, CMP, HS TROP, CK #### [address] ALP [Catalytic activity/Vol] 106 U/L High 34-104 [facility] Comment on above: Performed By: #### P TT, CBC, PT, BNP, CMP, HS TROP, CK #### [address] ALT [Catalytic activity/Vol] 9 U/L Normal 7-52 [facility] Comment on above: Performed By: #### P TT, CBC, PT, BNP, CMP, HS TROP, CK #### [address] Anion gap [Moles/Vol] 13.4 mmol/L Normal 6.0-15.0 Th e [facility] Comment on above: Performed By: #### P TT, CBC, PT, BNP, CMP, HS TROP, CK #### [address] AST [Catalytic activity/Vol] 8 U/L Low 13-39 The [facility] Comment on above: Performed By: #### P TT, CBC, PT, BNP, CMP, HS TROP, CK #### [facility] [address] Bilirubin [Mass/Vol] 0.4 mg/dL Normal 0.3-1.0 [facility] Comment on above: Performed By: #### P TT, CBC, PT, BNP, CMP, HS TROP, CK #### [address] Calcium [Mass/Vol] 8.5 mg/dL Low 8.6-10.3 The [facility] Comment on above: Performed By: #### P TT, CBC, PT, BNP, CMP, HS TROP, CK #### [address] Chloride [Moles/Vol] 102 mmol/L Normal 98-107 [facility] Comment on above: Performed By: #### P TT, CBC, PT, BNP, CMP, HS TROP, CK #### [address] CO2 [Moles/Vol] 24.5 mmol/L Normal 21.0-31.0 [facility] Comment on above: Performed By: #### P TT, CBC, PT, BNP, CMP, HS TROP, CK #### [address] Creatinine [Mass/Vol] 1.82 mg/dL High 0.70-1.30 [facility] Comment on above: Performed By: #### P TT, CBC, PT, BNP, CMP, HS TROP, CK #### [address] Creatinine Clr Calc Pharmacy 54.64 Normal [facility] Comment on above: Result Comment: PERF ORMED BY: [place] [id number] PATHOLOGIST [employer] OPERATOR CLIFFORD LOBATO M.D. Performed By: #### P TT, CBC, PT, BNP, CMP, HS TROP, CK #### [address] GFR/1.73 sq M.predicted MDRD (S/P/Bld) [Vol rate/Area] 42.789 mL/min/{1.73_m2} Normal [facility] Comment on above: Performed By: #### P TT, CBC, PT, BNP, CMP, HS TROP, CK #### [facility] [address] Globulin (S) [Mass/Vol] 3.1 g/dL Normal The [facility] Comment on above: Performed By: #### P TT, CBC, PT, BNP, CMP, HS TROP, CK #### [address] Glucose [Mass/Vol] 302 mg/dL High 70-100 The [facility] Comment on above: Result Comment: [facility] Glucose Reference Range is dependent on time and content of last meal. Glucose of more than 200 mg/dL in a nonstressed, ambulatory subject supports the diagnosis of Diabetes Mellitus. ADA recommended reference range Performed By: #### P TT, CBC, PT, BNP, CMP, HS TROP, CK #### [address] Potassium [Moles/Vol] 3.9 mmol/L Normal 3.5-5.1 [facility] Comment on above: Performed By: #### P TT, CBC, PT, BNP, CMP, HS TROP, CK #### [address] Protein [Mass/Vol] 7.0 g/dL Normal 6.4-8.9 The [facility] Comment on above: Performed By: #### P TT, CBC, PT, BNP, CMP, HS TROP, CK #### [facility] [address] [place] [address] [place] Sodium [Moles/Vol] 136 mmol/L Normal 136-145 The [facility] Comment on above: Performed By: #### P TT, CBC, PT, BNP, CMP, HS TROP, CK #### [address] Urea nitrogen [Mass/Vol] 16 mg/dL Normal 7-25 [facility] Comment on above: Performed By: #### P TT, CBC, PT, BNP, CMP, HS TROP, CK #### [facility] [address] [place] [id number] [place] Creatine Kinaseon 07-12-2023 CK [Catalytic activity/Vol] 55 U/L Normal [facility] Comment on above: Performed By: #### P TT, CBC, PT, BNP, CMP, HS TROP, CK #### [facility] [address] Creatine kinase [Enzymatic a ctivity/volume] in Serum or PlasmaOrdered By: Nancy Wilson on 07-12-2023 CK [Catalytic activity/Vol] 55 U/L [facility] Creatinine [Mass/volume] in Serum or PlasmaOrdered By: Nancy Wilson on 07-12-2023 Creatinine [Mass/Vol] 1.82 mg/dL 0.70-1.30 [facility] ECG 12 lead ECGon 07-12-2023 ECG 12 lead ECG [facility] Main [place] [address] [place] [address] Electrocardiograph Report Signed Patient: Solomon Feldman SR MR#: [id number] : 1965 Acct:[id number] Age/Sex: 57 / M ADM Date: 07/12/23 Loc: ER Room: Type: [facility] ER Attending Dr: Ordering Provider: Nancy [...] MD 01/26 0135 Normal [facility] Eosinophils Auto (Bld) [#/Vo l]Ordered By: Nancy Wilson on 07-12-2023 Eosinophils (Bld) [#/Vol] 0.3 10*3/uL 0.0-0.45 [facility] Eosinophils/100 WBC Auto (Bl d)Ordered By: Nancy Wilson on 07-12-2023 Eosinophils/100 WBC (Bld) 3.3 % . [facility] Erythrocyte distribution wid th Auto (RBC) [Ratio]Ordered By: Nancy Wilson on 07-12-2023 Erythrocyte distribution width (RBC) [Ratio] 17.1 % 12.0-14.8 [facility] Globulin Calc (S) [Mass/Vol] Ordered By: Nancy Wilson on 07-12-2023 Globulin (S) [Mass/Vol] 3.1 g/dL [facility] Glucose [Mass/volume] in Ser um or PlasmaOrdered By: Nancy Wilson on 07-12-2023 Glucose [Mass/Vol] 302 mg/dL 70-100 [facility] Comment on above: ADA recommended refe rence rangeRandom Glucose Reference Range is dependent on time and content of last meal. Glucose of more than 200 mg/dL in a nonstressed, ambulatory subject supports the diagnosis of Diabetes Mellitus. Hematocrit Auto (Bld) [Volum e fraction]Ordered By: Nancy Wilson on 07-12-2023 Hematocrit (Bld) [Volume fraction] 32.7 % 38.8-50.0 [facility] Hemoglobin [Mass/volume] in BloodOrdered By: Nancy Wilson on 07-12-2023 Hemoglobin (Bld) [Mass/Vol] 10.6 g/dL 13.0-17.0 [facility] INR in Platelet poor plasma by Coagulation assayOrdered By: Nancy Wilson on 07-12-2023 INR Coag (PPP) [Relative time] 1.1 {INR} [facility] Comment on above: INR Therapeutic [...] RBC Auto (Bld) [#/Vol] 9.5 10*3/uL 4.1-10.5 [facility] Lymphocytes Auto (Bld) [#/Vo l]Ordered By: Nancy Wilson on 07-12-2023 Lymphocytes (Bld) [#/Vol] 1.9 10*3/uL 1.00-4.8 [facility] Lymphocytes/100 WBC Auto (Bl d)Ordered By: Nancy Wilson on 07-12-2023 Lymphocytes/100 WBC (Bld) 20.0 % . [facility] MCH Auto (RBC) [Entitic mass ]Ordered By: Nancy Wilson on 07-12-2023 MCH (RBC) [Entitic mass] 22.8 pg 27.5-35.2 [facility] MCHC Auto (RBC) [Mass/Vol]Or dered By: Nancy Wilson on 07-12-2023 MCHC (RBC) [Mass/Vol] 32.4 g/dL 32.5-35.6 [facility] MCV Auto (RBC) [Entitic vol] Ordered By: Nancy Wilson on 07-12-2023 MCV (RBC) [Entitic vol] 70.6 fL 83.5-101 [facility] Monocyte distribution width [Entitic volume] in Blood by AutomatedOrdered By: Nancy Wilson on 07-12-2023 Monocyte distribution width Auto (Bld) [Entitic vol] 18.12 % 0.00-20.00 [facility] Monocytes Auto (Bld) [#/Vol] Ordered By: Nancy Wilson on 07-12-2023 Monocytes (Bld) [#/Vol] 1.0 10*3/uL 0.0-0.8 [facility] Monocytes/100 WBC Auto (Bld) Ordered By: Nancy Wilson on 07-12-2023 Monocytes/100 WBC (Bld) 10.2 % . [facility] Natriuretic peptide B [Mass/ Vol]Ordered By: Nancy Wilson on 07-12-2023 Natriuretic peptide B (Bld) [Mass/Vol] 34.0 pg/mL 5-100 [facility] Neutrophils Auto (Bld) [#/Vo l]Ordered By: Nancy Wilson on 07-12-2023 Neutrophils (Bld) [#/Vol] 6.2 10*3/uL 1.8-7.7 [facility] Neutrophils/100 WBC Auto (Bl d)Ordered By: Nancy Wilson on 07-12-2023 Neutrophils/100 WBC (Bld) 65.4 % . [facility] No Panel InformationOrdered By: Nancy Wilson on 07-12-2023 Estimated GFR (CKD-EPI) 42.789 mL/Min [facility] Creatinine Clearance (Chem 54.64 [facility] Nucleated erythrocytes [Pres ence] in Blood by Automated countOrdered By: Nancy Wilson on 07-12-2023 Nucleated RBC Auto Ql (Bld) 0.1 /100{WBC} 0-0.5 [facility] Partial Thromboplastin Timeo n 07-12-2023 aPTT Coag (Bld) [Time] 29.4 s Normal 25.1-36.5 Th e [facility] Comment on above: Result Comment: A he matocrit value greater than 55% may lead to inaccurate results in coagulation testing. Patients having hematocrit values >55% require a special collection tube for coagulation studies. Please contact the laboratory at [phone] for redraw instructions. PERFORMED BY: [facility] [address] [place] [address] PATHOLOGIST [employer] OPERATOR CLIFFORD LOBATO M.D. Performed By: #### P TT, CBC, PT, BNP, CMP, HS TROP, CK ####[facility] [id number] [place] [address] [facility] Platelet mean volume Auto (B ld) [Entitic vol]Ordered By: Nancy Wilson on 07-12-2023 Platelet mean volume (Bld) [Entitic vol] 9.1 fL 6.6-10.1 [facility] Platelets Auto (Bld) [#/Vol] Ordered By: Nancy Wilson on 07-12-2023 Platelets (Bld) [#/Vol] 233 10*3/uL 150-450 [facility] Potassium [Moles/volume] in Serum or PlasmaOrdered By: Nancy Wilson on 07-12-2023 Potassium [Moles/Vol] 3.9 mmol/L 3.5-5.1 [facility] Protein [Mass/volume] in Ser um or PlasmaOrdered By: Nancy Wilson on 07-12-2023 Protein [Mass/Vol] 7.0 g/dL 6.4-8.9 [facility] Prothrombin Time INRon 07-12 INR Coag (PPP) [Relative time] 1.1 {INR} Normal [facility] Comment on above: Result Comment: [...] PT, BNP, CMP, HS TROP, CK #### [facility] [address] PT Coag (PPP) [Time] 12.1 s Normal 9.0-12.9 [facility] Comment on above: Result Comment: A he matocrit value greater than 55% may lead to inaccurate results in coagulation testing. Patients having hematocrit values >55% require a special collection tube for coagulation studies. Please contact the laboratory at [phone] for redraw instructions. Performed By: #### P TT, CBC, PT, BNP, CMP, HS TROP, CK #### [facility] [address] [place] [id number] [facility] Prothrombin time (PT)Ordered By: Nancy Wilson on 07-12-2023 PT Coag (PPP) [Time] 12.1 s 9.0-12.9 [facility] Comment on above: A hematocrit value g reater than 55% may lead to inaccurate results in coagulation testing. Patients having hematocrit values >55% require a special collection tube for coagulation studies. Please contact the laboratory at [phone] for redraw instructions. RBC Auto (Bld) [#/Vol]Ordere d By: Nancy Wilson on 07-12-2023 RBC (Bld) [#/Vol] 4.63 10*6/uL 3.90-5.60 [facility] Serum or plasma albumin/glob ulin mass ratioOrdered By: Nancy Wilson on 07-12-2023 Albumin/Globulin [Mass ratio] 1.3 {ratio} [facility] Serum or plasma anion gap de terminationOrdered By: Nancy Wilson on 07-12-2023 Anion gap [Moles/Vol] 13.4 mmol/L 6.0-15.0 [facility] Sodium [Moles/volume] in Ser um or PlasmaOrdered By: Nancy Wilson on 07-12-2023 Sodium [Moles/Vol] 136 mmol/L 136-145 [facility] Troponin I High Sensitivityo n 07-12-2023 Troponin I High Sensitivity 4.6 pg/mL Normal 0.0-20.0 [facility] Comment on above: Result Comment: PERF ORMED BY: [place] [id number] PATHOLOGIST [employer] OPERATOR CLIFFORD LOBATO M.D. Performed By: #### P TT, CBC, PT, BNP, CMP, HS TROP, CK #### [address] Troponin I.cardiac [Mass/vol ume] in Serum or Plasma by Detection limit <= 0.01 ng/Ordered By: Nancy Wilson on 07-12-2023 Troponin I.cardiac DL <= 0.01 ng/mL [Mass/Vol] 4.6 pg/mL 0.0-20.0 [facility] Urea nitrogen [Mass/volume] in Serum or PlasmaOrdered By: Nancy Wilson on 07-12-2023 Urea nitrogen [Mass/Vol] 16 mg/dL 7-25 [facility] WBC Auto (Bld) [#/Vol]Ordere d By: Nancy Wilson on 07-12-2023 WBC (Bld) [#/Vol] 9.5 10*3/uL 4.1-10.5 [facility] XR chest 1V portableon 07-12 XR chest 1V portable [facility] Main [place] [address] [place] [address] XRay Report Signed Patient: Solomon Feldman SR MR#: [id number] : 1965 Acct:[id number] Age/Sex: 57 / M ADM Date: 07/12/23 [...] Sudeep Lind M.D.07/12/2023 5:08 PM Dictation Location: [place] [address] Transcribed By: [facility] 07/12/23 1708 Dictated By: Sudeep Lind DO 07/12/231706 Signed By: 07/12/238 Normal [facility] Patient Educationon 12-29-20 23 Patient [...] Follow these instructions at home: ? Take rtyj-cso-duzatug and prescription medicines only as told by [...] the medicine (more content not included)... Normal [facility] Retail - Clinical Noteon Retail - Clinical Note [id number]#1.00TIFF [facility] Urology Office/Clinic Noteon 06-02-2023 Urology Office/Clinic Note Chief Complaint S/p to Cysto HPI Staff Sp to Cysto done @ [facility] on 02/14/23- Has not [...] Contact Information SOLEDAD HERRERA, Yeyo Blum, [address] [place] [address]- Additional Instructions: 1 month w/ cath volumes [...] heart failure) (more content not included)... Normal [facility] Comment on above: Result Comment: Elec tronically Signed By: Yeyo ROWE MD\.br\Date and Time Signed: 06/02/23 12:16 EST\.br\Electronically Co-Signed By: Mattie Foster\.br\Date and Time Co-Signed: 06/02/23 12:04 EST Patient Educationon 05-03-20 Patient Education Normal [facility] Pathology Noteon 05-01-2023 Pathology Note [id number]#1.00TIFF Normal [facility] Lab Reportson 04-14-2023 Lab Reports [id number]#1.00TIFF Normal [facility] Operative Reporton Operative Report [id number]#1.00TIFF Normal [facility] Patient Correspondenceon Patient Correspondence [id number]#1.00TIFF Normal [facility] Lab Reportson 03-31-2023 Lab Reports [id number]#1.00TIFF Normal [facility] RAD - MISCon 03-31-2023 RAD - MISC [id number]#1.00TIFF Normal [facility] Patient Correspondenceon Patient Correspondence [id number]#1.00TIFF Normal [facility] Formson 03-23-2023 Forms [id number]#1.00TIFF [facility] A1C HEMOGLOBINon 03-15-2023 HbA1c (Bld) [Mass fraction] 7.5 % [facility] Other HbA1c (Bld) [Mass fraction]o n 03-15-2023 A1C HEMOGLOBIN [facility] [place] Other Lab Reportson 03-09-2023 Lab Reports [id number]#1.00TIFF [facility] Consultation Noteon 02-27-20 Consultation Note [id number]#1.00CD:12 7 [facility] Consent for Procedure/Surger yon 02-15-2023 Consent for Procedure/Surgery [id number]#1.00CD:12 7 [facility] Office Visit (Cardiology)on 02-15-2023 Follow-up visit [...] in adult Healthy Weight Tips; Status:Complete; Done: [id number] Patient Instructions Please bring all medicines, vitamins, [...] Sia HERRERA, (more content not included)... Normal Invoiceable Tobacco Screening.on 023 Fall risk assessment c) Not medically indicated [facility] 250 DO Work Phone: Tobacco use status CP b) No [facility] 250 DO Work Phone: Tobacco Screening. Yes [facility] 250 DO Work Phone: Consent for Procedure/Surger yon 02-14-2023 Consent for Procedure/Surgery [id number]#1.00CD:1 27 [facility] Consent for Procedure/Surgery [id number]#1.00CD:1 27 [facility] Consent for Treatmenton 02-03 Consent for Treatment [id number]#1.00CD:12 7 [facility] IntraOperative Documentson 0 02-14-2023 IntraOperative Documents [id number]#1.00CD:1 27 [facility] IntraOperative Documents [id number]#1.00CD:1 27 [facility] Main OR Intraoperative Recor don 02-14-2023 Main OR Intraoperative Record IntraOp Document Type FTURO Summary Primary Physician: Yeyo ROWE MD Finalized Date/Time: 02/14/23 10:18:58 Pt. Name: MATTEO CHRISTIAN, SOLOMON Aceves/Sex: 1965 Male Med Rec #: [id number] Physician: Yeyo ROWE MD Financial #: [id number] Pt. Type: O Room/Bed: / Admit/Disch: 02/14/23 [...] Nguyen CST Role Performed Surgeon - Primary Thermal Engineer - Primary Scrub - Primary Time In [...] 09:45 Chandrika Martínez RN 02/14/23 10:18 Normal [facility] Main OR Preoperative Recordo n 02-14-2023 Main OR Preoperative Record Holding Area Document Type FTURO Summary Primary Physician: Yeyo ROWE MD Finalized Date/Time: 02/14/23 09:01:37 Pt. Name: SOLOMON FELDMAN SR/Sex: 1965 Male Med Rec #: [id number] Physician: Yeyo ROWE MD Financial #: [id number] Pt. Type: O Room/Bed: / Admit/Disch: 02/14/23 [...] By: Sheri Bolivar RN 02/14/23 09:01 Normal [facility] Operative Reporton 3 Operative Report Patient: [...] with antibiotic coverage, Follow up arranged. Normal [facility] Comment on above: Result Comment: Elec [...] including vitamins, herbs, eye drops, creams, and ibpi-xcf-hptfqcd medicines. ? Any problems you or family [...] tells you to take them. ? Taking gfbv-mnk-minoxum medicines, vitamins, herbs, and supplements. Surgery safety [...] health care (more content not included)... Normal [facility] Progress Note-Physicianon Progress Note-Physician Patient: SOLOMON [...] mg = 1 tab(s), PRN, SubLingual, q5min Meridian 325 mg-5 mg oral tablet 1 tab(s), [...] 278.00 / Possible Fibromyalgia / SNOMED CT [id number]-0911-10F5-4 022037W92X3 / Confirmed Restless leg / ICD-9-CM 333.94 / Confirmed Arthritis / SNOMED CT 39FK2571-6H8G-91D5-0H6N-B AS0A920X987 / Confirmed Hyperlipidemia / SNOMED CT 71061895 / Confirmed Smoker / SNOMED CT J315BX4K-7183-02C2-8061-E XS9C7396EK2 / Confirmed Added secondary to documentation in Social History. Asthma / SNOMED CT 353158699 / Confirmed COPD type A / SNOMED CT 890276073 / Confirmed Head ache / SNOMED CT 47456942 / Confirmed Heart attack / SNOMED CT 51891707 / Confirmed Heart disease / SNOMED CT 69149395 / Confirmed Heart murmur / SNOMED CT 805851812 / Confirmed Urinary retention / SNOMED CT 407317686 / Confirmed BPH with obstruction/lower urinary tract symptoms / SNOMED CT 8445889196 / Confirmed Orchitis / SNOMED CT 203987478 / Confirmed Gross hematuria / SNOMED CT 632368274 / Confirmed Tobacco use / SNOMED CT PEFS3843-2082-2A33-R0L1-5 46735QO8IQ9 / Confirmed Added secondary to social history documentation. Histories Past Medical History: Active Fibromyalgia (K5I682S5-A61I-5082-28M5- 3621028X97R0) Restless leg (333.94) Arthritis (95EU6420-7A7J-07H6-7T3W- ZQI6D044B316) Hyperlipidemia (59680794) Resolved HTN [Hypertension] (401.9): Resolved. NIDDM (250.00): Resolved. GERD [Gastroesophageal reflux disease] (530.81): Resolved. CHF (congestive heart failure) (C8507705-0P9Z-5G9P-3B27- I885986E8N27): Resolved. NC (myocardial infarction) (413H7XNZ-42W9-9T6W-9T12- 42191C43E9NW): Resolved. Family History: Diabetes mellitus Mother Heart disease Mother Alcoholism Brother Drug addiction Brother Acute myocardial infarction Mother Grandparent Procedure history: Bilateral Eye Surgery. Comments: 07/10/2014 17:25 ALES[facility] - [facility], Kati bilateral cataracts with iol implants Bilateral Carpal Tunnel Surgery. cardiac stents. Appendectomy (433368029). Colonoscopy (467545255). Cataract extraction and insertion of intraocular lens (4483099577). Procedure on back (005902202). Social History Social & Psychosocial Habits Alcohol [...] procedure such (more content not included)... Normal [facility] Comment on above: Result Comment: Elec tronically Signed By: SOLEDAD HERRERA, Yeyo Nolasco.livia\Date and Time Signed: 02/14/23 09:58 EDT Consent for Treatmenton Consent for Treatment [id number]#1.00CD:12 7 Normal [facility] Ambulatory Visit Summaryon 0 01-30-2023 Ambulatory Visit Summary SOLOMON FELDMAN SR :1965 Visit Date:01/30/2023 Ambulatory Visit Instructions Your Diagnosis Urinary retention Gross hematuria BPH with obstruction/lower urinary tract symptoms Orchitis Your Care Team Attending Physician - Yeyo ROWE MD Primary Care Physician - JENARO LYNCH DO This Is Your Medications List Contact prescribing physician if questions or concerns acetaminophen-hydrocodone (Meridian 325 mg-5 mg oral tablet) albuterol (ProAir [...] [facility] [address] , [place] [address] [phone] Medications What How Much When Instructions Unchanged acetaminophen-hydrocodone (Meridian 325 mg-5 mg oral tablet) 1 Tablets [...] vivian (more content not included)... Normal [facility] Patient Educationon 01-31-20 Patient Education [...] including vitamins, herbs, eye drops, creams, and cwxs-qaf-dldsbil medicines. ? Whether you are or may [...] results be (more content not included)... Normal [facility] Urology Office/Clinic Noteon 01-30-2023 Urology Office/Clinic [...] [facility] [address], [place] [address] [phone] Additional Instructions: sched cysto/uros Patient Education Urodynamic [...] failure) GERD [Gastroesophageal reflux disease] HTN [Hypertension] NC (myocardial infarction) NIDDM Procedure/Surgical History Appendectomy, Bilateral [...] mg, BID (more content not included)... Normal [facility] Comment on above: Result Comment: Elec tronically Signed By: Saima Sutton\.livia\Date and Time Signed: 01/30/23 11:38 EDT [facility] CARDIAC STRESS/REST INJE CTIONon 01-25-2023 [facility] CARDIAC STRESS/REST INJECTION Patient Name: SOLOMON FELDMAN STUDY: MYOCARDIAL PERFUSION STRESS TEST WITH EXERCISE CONVERTED TO LEXISCAN Performing facility: [facility], [address] [place] [address], [address], [place], [place] [address] Provider: Dolores Feldman RN, HISTORY DEPARTMENT CHAIR PCP: Dr. Jenaro Lynch Supervising provider: Pascale Arnold MD, [facility] INDICATION: Anginal equivalent CAD; HISTORY: Gender: M; Age: 57 y/o ; Height: 182.88 cm; Weight: 97.1263806 kg. High Cholesterol; CAD; Diabetes; HTN; Palpitations; Chest Pain; Quit smoking unknown years ago. COMPARISON: Previous nuclear testing completed at [facility]. ACCESSION NUMBER(S): [id number]; [id number]; [id number] ORDERING CLINICIAN: DOLORES FELDMAN TECHNIQUE: ONE DAY [...] Electronically signed by: PASCALE ARNOLD MD Normal [facility] No Panel Informationon 01-25 Normal [facility] 250 DO Work Phone: Office [...] contact the office if new symptoms arise. 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 Normal Invoiceable Tobacco Screening.on 023 Adult depression screening assessment No [facility] [employer] 600 DO Work Phone: Tobacco use status [facility] b) No [facility] [employer] 600 DO Work Phone: Ambulatory Visit Summaryon 0 12-28-2022 Ambulatory Visit Summary SOLOMON FELDMAN SR :1965 Visit Date:12/28/2022 Ambulatory Visit Instructions Your Care Team Attending Physician - Yeyo ROWE MD Primary Care Physician - JENARO LYNCH DO This Is Your Medications List acetaminophen-hydrocodone (Meridian 325 mg-5 mg oral tablet) albuterol (ProAir [...] HERRERA, Yeyo Blum Where: [facility] Alanine aminotransferase [En zymatic activity/volume] in Serum or PlasmaOrdered By: Jenaro Lynch on 09-27-2022 ALT [Catalytic activity/Vol] 15 U/L 7-52 [facility] Albumin [Mass/volume] in Ser um or Plasma by Bromocresol green (BCG) dye binding methoOrdered By: Jenaro Lynch on 09-27-2022 Albumin BCG dye [Mass/Vol] 4.1 g/dL 3.5-5.7 [facility] Alkaline phosphatase [Enzyma tic activity/volume] in Serum or PlasmaOrdered By: Jenaro Lynch on 09-27-2022 ALP [Catalytic activity/Vol] 116 U/L 34-104 [facility] Aspartate aminotransferase [ Enzymatic activity/volume] in Serum or PlasmaOrdered By: Jenaro Lynch on 09-27-2022 AST [Catalytic activity/Vol] 15 U/L 13-39 [facility] Basophils Auto (Bld) [#/Vol] Ordered By: Jenaro Lynch on 09-27-2022 Basophils (Bld) [#/Vol] 0.1 10*3/uL 0.0-0.2 [facility] Basophils/100 WBC Auto (Bld) Ordered By: Jenaro Lynch on 09-27-2022 Basophils/100 WBC (Bld) 1.1 % . [facility] Bilirubin.total [Mass/volume ] in Serum or PlasmaOrdered By: Jenaro Lynch on 09-27-2022 Bilirubin [Mass/Vol] 0.4 mg/dL 0.3-1.0 [facility] Calcium [Mass/volume] in Ser um or PlasmaOrdered By: Jenaro Lynch on 09-27-2022 Calcium [Mass/Vol] 8.8 mg/dL 8.6-10.3 [facility] Carbon dioxide, total [Moles /volume] in Serum or PlasmaOrdered By: Jenaro Lynch on 09-27-2022 CO2 [Moles/Vol] 27.2 mmol/L 21.0-31.0 [facility] Chloride [Moles/volume] in S ilia or PlasmaOrdered By: Jenaro Lynch on 09-27-2022 Chloride [Moles/Vol] 99 mmol/L 98-107 [facility] Cholesterol [Mass/volume] in Serum or PlasmaOrdered By: Jenaro Lynch on 09-27-2022 Cholesterol [Mass/Vol] 104 mg/dL 140-200 [facility] Comment on above: Chol less than 200 m g/dl low riskChol 201-239 mg/dl borderline riskChol 240 mg/dl and greater high risk Cholesterol in LDL Calc [Mas s/Vol]Ordered By: Jenaro Lynch on 09-27-2022 Cholesterol in LDL [Mass/Vol] TNP [facility] Comment on above: Test not performed Cholesterol in LDL [Mass/vol ume] in Serum or PlasmaOrdered By: Jenaro Lynch on 09-27-2022 Cholesterol in LDL [Mass/Vol] 38 mg/dL 0-100 [facility] Comment on above: LDL ATP III CLASSIFI CATIONLDL less than 100 mg/dL OptimalLDL 100-129 mg/dL Near or above optimalLDL 130-159 mg/dL Borderline highLDL 160-189 mg/dL HighLDL greater than 189 mg/dL Very high Cholesterol in VLDL Calc [Ma ss/Vol]Ordered By: Jenaro Lynch on 09-27-2022 Cholesterol in VLDL [Mass/Vol] 99 mg/dL [facility] Creatinine [Mass/volume] in Serum or PlasmaOrdered By: Jenaro Lynch on 09-27-2022 Creatinine [Mass/Vol] 1.84 mg/dL 0.70-1.30 [facility] Eosinophils Auto (Bld) [#/Vo l]Ordered By: Jenaro Lynch on 09-27-2022 Eosinophils (Bld) [#/Vol] 0.7 10*3/uL 0.0-0.45 [facility] Eosinophils/100 WBC Auto (Bl d)Ordered By: Jenaro Lynch on 09-27-2022 Eosinophils/100 WBC (Bld) 5.9 % . [facility] Erythrocyte distribution wid th Auto (RBC) [Ratio]Ordered By: Jenaro Lynch on 09-27-2022 Erythrocyte distribution width (RBC) [Ratio] 16.0 % 12.0-14.8 [facility] Globulin Calc (S) [Mass/Vol] Ordered By: Jenaro Lynch on 09-27-2022 Globulin (S) [Mass/Vol] 2.9 g/dL [facility] Glucose [Mass/volume] in Ser um or PlasmaOrdered By: Jenaro Lynch on 09-27-2022 Glucose [Mass/Vol] 225 mg/dL 70-100 [facility] Comment on above: ADA recommended refe rence rangeRandom Glucose Reference Range is dependent on time and content of last meal. Glucose of more than 200 mg/dL in a nonstressed, ambulatory subject supports the diagnosis of Diabetes Mellitus. Hematocrit Auto (Bld) [Volum e fraction]Ordered By: Jenaro Lynch on 09-27-2022 Hematocrit (Bld) [Volume fraction] 41.0 % 38.8-50.0 [facility] Hemoglobin [Mass/volume] in BloodOrdered By: Jenaro Lynch on 09-27-2022 Hemoglobin (Bld) [Mass/Vol] 13.2 g/dL 13.0-17.0 [facility] Leukocytes [#/volume] correc jorge for nucleated erythrocytes in Blood by Automated counOrdered By: Jenaro Lynch on 09-27-2022 WBC corrected for nucl RBC Auto (Bld) [#/Vol] 12.4 10*3/uL 4.1-10.5 [facility] Lymphocytes Auto (Bld) [#/Vo l]Ordered By: Jenaro Lynch on 09-27-2022 Lymphocytes (Bld) [#/Vol] 2.3 10*3/uL 1.00-4.8 [facility] Lymphocytes/100 WBC Auto (Bl d)Ordered By: Jenaro Lynch on 09-27-2022 Lymphocytes/100 WBC (Bld) 18.2 % . [facility] MCH Auto (RBC) [Entitic mass ]Ordered By: Jenaro Lynch on 09-27-2022 MCH (RBC) [Entitic mass] 23.9 pg 27.5-35.2 [facility] MCHC Auto (RBC) [Mass/Vol]Or dered By: Jenaro Lynch on 09-27-2022 MCHC (RBC) [Mass/Vol] 32.2 g/dL 32.5-35.6 [facility] MCV Auto (RBC) [Entitic vol] Ordered By: Jenaro Lynch on 09-27-2022 MCV (RBC) [Entitic vol] 74.3 fL 83.5-101 [facility] Monocytes Auto (Bld) [#/Vol] Ordered By: Jenaro Lynch on 09-27-2022 Monocytes (Bld) [#/Vol] 1.0 10*3/uL 0.0-0.8 [facility] Monocytes/100 WBC Auto (Bld) Ordered By: Jenaro Lynch on 09-27-2022 Monocytes/100 WBC (Bld) 7.9 % . [facility] Neutrophils Auto (Bld) [#/Vo l]Ordered By: Jenaro Lynch on 09-27-2022 Neutrophils (Bld) [#/Vol] 8.3 10*3/uL 1.8-7.7 [facility] Neutrophils/100 WBC Auto (Bl d)Ordered By: Jenaro Lynch on 09-27-2022 Neutrophils/100 WBC (Bld) 66.9 % . [facility] No Panel InformationOrdered By: Jenaro Lynch on 09-27-2022 Estimated GFR (CKD-EPI) 42.232 mL/Min [facility] Creatinine Clearance (Chem N/A [facility] Nucleated erythrocytes [Pres ence] in Blood by Automated countOrdered By: Jenaro Lynch on 09-27-2022 Nucleated RBC Auto Ql (Bld) 0.1 /100{WBC} 0-0.5 [facility] Platelet mean volume Auto (B ld) [Entitic vol]Ordered By: Jenaro Lynch on 09-27-2022 Platelet mean volume (Bld) [Entitic vol] 9.1 fL 6.6-10.1 [facility] Platelets Auto (Bld) [#/Vol] Ordered By: Jenaro Lynch on 09-27-2022 Platelets (Bld) [#/Vol] 209 10*3/uL 150-450 [facility] Potassium [Moles/volume] in Serum or PlasmaOrdered By: Jenaro Lynch on 09-27-2022 Potassium [Moles/Vol] 4.3 mmol/L 3.5-5.1 [facility] Protein [Mass/volume] in Ser um or PlasmaOrdered By: Jenaro Lynch on 09-27-2022 Protein [Mass/Vol] 7.0 g/dL 6.4-8.9 [facility] RBC Auto (Bld) [#/Vol]Ordere d By: Jenaro Lynch on 09-27-2022 RBC (Bld) [#/Vol] 5.52 10*6/uL 3.90-5.60 [facility] Serum or plasma albumin/glob ulin mass ratioOrdered By: Jenaro Lynch on 09-27-2022 Albumin/Globulin [Mass ratio] 1.4 {ratio} [facility] Serum or plasma anion gap de terminationOrdered By: Jenaro Lynch on 09-27-2022 Anion gap [Moles/Vol] 14.1 mmol/L 6.0-15.0 [facility] Serum or plasma high density lipoprotein (HDL) cholesterol measurementOrdered By: Jenaro Lynch on 09-27-2022 Cholesterol in HDL [Mass/Vol] 21 mg/dL 29-71 [facility] Comment on above: HDL CHOL ATP-III CLA SSIFICATION Cardiovascular RiskHDL > or equal to 60 mg/dL LOWHDL < 40 mg/dL HIGH Serum or plasma total choles terol/high density lipoprotein (HDL) cholesterol mass ratOrdered By: Jenaro Lynch on 09-27-2022 Cholesterol.total/Chol esterol in HDL [Mass ratio] 5.0 {ratio} <5.0 [facility] Sodium [Moles/volume] in Ser um or PlasmaOrdered By: Jenaro Lynch on 09-27-2022 Sodium [Moles/Vol] 136 mmol/L 136-145 [facility] Thyrotropin [Units/volume] i n Serum or PlasmaOrdered By: Jenaro Lynch on 09-27-2022 TSH Qn 3.62 m[IU]/L 0.45-5.33 [facility] Triglyceride [Mass/volume] i n Serum or PlasmaOrdered By: Jenaro Lynch on 09-27-2022 Triglyceride [Mass/Vol] 497 mg/dL 0-149 [facility] Comment on above: If the [...] on 09-27-2022 Urate [Mass/Vol] 6.2 mg/dL 2.4-7.6 [facility] Urea nitrogen [Mass/volume] in Serum or PlasmaOrdered By: Jenaro Lynch on 09-27-2022 Urea nitrogen [Mass/Vol] 15 mg/dL 7-25 [facility] WBC Auto (Bld) [#/Vol]Ordere d By: Jenaro Lynch on 09-27-2022 WBC (Bld) [#/Vol] 12.4 10*3/uL 4.1-10.5 [facility] A1C HEMOGLOBINon 02-15-2022 HbA1c (Bld) [Mass fraction] % [employer] Other HbA1c (Bld) [Mass fraction]o n 02-15-2022 A1C HEMOGLOBIN [facility] [place] Other Tobacco Screening.on 022 Adult depression screening assessment No [facility] DO Work Phone: Tobacco use status [facility] b) No [facility] DO Work Phone: A1C HEMOGLOBINon 07-27-2021 HbA1c (Bld) [Mass fraction] 11.8 % [facility] [place] Other HbA1c (Bld) [Mass fraction]o n 07-27-2021 A1C HEMOGLOBIN [facility] [place] Other Vital Signs Date Time Vital Sign Value Performing Clinician Facility 10-24-2023 10:56-0400 Body height 182.9 cm Raulito Inman MD Work Phone: [facility] 10-24-2023 10:56-0400 Diastolic blood pressure 86 mm[Hg] Raulito Inman MD Work Phone: [facility] 10-24-2023 10:56-0400 Heart rate 104 /min Raulito Inman MD Work Phone: [facility] 10-24-2023 10:56-0400 Systolic blood pressure 134 mm[Hg] Raulito Inman MD Work Phone: [facility] 10-23-2023 09:37-0400 Blood Pressure Location Padmini Montes [facility] 10-23-2023 09:37-0400 Diastolic blood pressure 82 mm[Hg] Padmin[facility] 10-23-2023 09:37-0400 Heart rate 107 /min Padmini Montes [facility] 10-23-2023 09:37-0400 SaO2% (BldA) [Mass fraction] 98 % [facility]admin[facility] 10-23-2023 09:37-0400 Systolic blood pressure 130 mm[Hg] Padmini Montes [facility] 07-31-2023 12:00-0500 Diastolic blood pressure 63 mm[Hg] DO Jenaro Lynch Work Phone: [facility] 07-31-2023 12:00-0500 Heart rate 75 /min DO Jenaro Kuns Work Phone: [facility] 07-31-2023 12:00-0500 Systolic blood pressure 108 mm[Hg] DO Jenaro Kuns Work Phone: [facility] 07-31-2023 08:33-0500 Respiratory rate 18 /min DO Jenaro Kuns Work Phone: [facility] 07-12-2023 18:03-0500 Diastolic blood pressure 73 mm[Hg] DO Jenaro Kuns Work Phone: [facility] 07-12-2023 18:03-0500 Heart rate 76 /min DO Jenaro Kuns Work Phone: [facility] 07-12-2023 18:03-0500 Respiratory rate 20 /min DO Jenaro Kuns Work Phone: [facility] 07-12-2023 18:03-0500 SaO2% (BldA) [Mass fraction] 98 % DO Jenaro Kuns Work Phone: [facility] 07-12-2023 18:03-0500 Systolic blood pressure 125 mm[Hg] DO Jenaro Kuns Work Phone: [facility] 07-12-2023 16:15-0500 Body height 182.88 cm DO Jenaro Kuns Work Phone: [facility] 07-12-2023 16:15-0500 Body temperature 98.9 [degF] DO Jenaro Kuns Work Phone: [facility] 07-12-2023 16:15-0500 Body weight 99.25 kg DO Jenaro Kuns Work Phone: [facility] 06-02-2023 10:56-0500 Blood Pressure Location Yeyo ROWE [facility] 06-02-2023 10:56-0500 Body temperature 96.98 [degF] Yeyo ROWE [facility] 06-02-2023 10:56-0500 Diastolic blood pressure 84 mm[Hg] Yeyo ROWE [facility] 06-02-2023 10:56-0500 Heart rate 68 /min Yeyo ROW[facility] 06-02-2023 10:56-0500 Systolic blood pressure 124 mm[Hg] Yeyo ROWE [facility] 04-06-2023 13:15-0400 Body height 180.34 cm Jenaro Lynch Other [employer] Other 04-06-2023 13:15-0400 Body mass index (BMI) [Ratio] 29.43 kg/m2 Jenaro Lynch Other [employer] Other 04-06-2023 13:15-0400 Body weight 95.71 kg Jenaro Lynch Other [employer] Other 04-06-2023 13:15-0400 Diastolic blood pressure 70 mm[Hg] Jenaro Lynch Other [employer] Other 04-06-2023 13:15-0400 Respiratory rate 18 /min Jenaro Lynch Other [employer] Other 04-06-2023 13:15-0400 SaO2% (BldA) [Mass fraction] 97 % Jenaro Lynch Other [employer] Other 04-06-2023 13:15-0400 Systolic blood pressure 100 mm[Hg] Jenaro Lynch Other [employer] Other 03-15-2023 08:30-0400 Body height 180.34 cm Jenaro Lynch Other [employer] Other 03-15-2023 08:30-0400 Body mass index (BMI) [Ratio] 29.01 kg/m2 Jenaro Lynch Other [employer] Other 03-15-2023 08:30-0400 Body weight 94.35 kg Jenaro Lynch Other [employer] Other 03-15-2023 08:30-0400 Diastolic blood pressure 62 mm[Hg] Jenaro Lynch Other [employer] Other 03-15-2023 08:30-0400 Respiratory rate 16 /min Jenaro Lynch Other [employer] Other 03-15-2023 08:30-0400 SaO2% (BldA) [Mass fraction] 97 % Jenaro Lynch Other [employer] Other 03-15-2023 08:30-0400 Systolic blood pressure 88 mm[Hg] Jenaro Lynch Other [employer] Other 02-15-2023 10:04-0400 Body height 182.88 cm Jenaro Lynch Work Phone: [facility] DO Work Phone: 02-15-2023 10:04-0400 Body mass index (BMI) [Ratio] 28.62 kg/m2 Jenaro Lynch Work Phone: [facility] 250 DO Work Phone: 02-15-2023 10:04-0400 Body surface area Derived from formula 2.18 m2 Jenaro Lynch Work Phone: [facility] 250 DO Work Phone: 02-15-2023 10:04-0400 Body weight 95.71 kg Jenaro Lynch Work Phone: [facility] 250 DO Work Phone: 02-15-2023 10:04-0400 Diastolic blood pressure 70 mm[Hg] Jenaro Lynch Work Phone: [facility] 250 DO Work Phone: 02-15-2023 10:04-0400 Heart rate 76 /min Jenaro Lynch Work Phone: [facility] 250 DO Work Phone: 02-15-2023 10:04-0400 Systolic blood pressure 102 mm[Hg] Jenaro Lynch Work Phone: [facility] 250 DO Work Phone: 01-30-2023 10:23-0400 Blood Pressure Location Yeyo ROWE [facility] 01-30-2023 10:23-0400 Diastolic blood pressure 74 mm[Hg] Yeyo ROWE [facility] 01-30-2023 10:23-0400 Heart rate 68 /min Yeyo ROWE [facility] 01-30-2023 10:23-0400 Respiratory rate 16 /min Yeyo ROWE [facility] 01-30-2023 10:23-0400 Systolic blood pressure 130 mm[Hg] Yeyo ROWE [facility] 01-11-2023 15:08-0400 Body height 180.34 cm Jenaro Lynch Work Phone: [facility] 600 DO Work Phone: 01-11-2023 15:08-0400 Body mass index (BMI) [Ratio] 30.13 kg/m2 Jenaro Lynch Work Phone: [facility] DO Work Phone: 01-11-2023 15:08-0400 Body surface area Derived from formula 2.18 m2 Jenaro Lynch Work Phone: [facility] DO Work Phone: 01-11-2023 15:08-0400 Body weight 97.98 kg Jenaro Lynch Work Phone: [facility] DO Work Phone: 01-11-2023 15:08-0400 Diastolic blood pressure 86 mm[Hg] Jenaro Lynch Work Phone: [facility] DO Work Phone: 01-11-2023 15:08-0400 Heart rate 74 /min Jenaro Lynch Work Phone: [facility] DO Work Phone: 01-11-2023 15:08-0400 Systolic blood pressure 122 mm[Hg] Jenaro Lynch Work Phone: [facility] DO Work Phone: 12-01-2022 12:45-0400 Body height 180.34 cm Jenaro Lynch Other [employer] Other 12-01-2022 12:45-0400 Body mass index (BMI) [Ratio] 29.73 kg/m2 Jenarogorge Fraustojoe Other [employer] Other 12-01-2022 12:45-0400 Body weight 96.71 kg Jenaro Syed Other [employer] Other 12-01-2022 12:45-0400 Diastolic blood pressure 70 mm[Hg] Jenaro Syed Other [employer] Other 12-01-2022 12:45-0400 Respiratory rate 18 /min Jenaro Lynch Other [employer] Other 12-01-2022 12:45-0400 SaO2% (BldA) [Mass fraction] 94 % Jenaro Fraustojoe Other [employer] Other 12-01-2022 12:45-0400 Systolic blood pressure 122 mm[Hg] Jenarogorge Lynch Other [employer] Other 11-23-2022 11:38-0400 Blood Pressure Location Yeyo ROW[facility] 11-23-2022 11:38-0400 Diastolic blood pressure 85 mm[Hg] Yeyo ROWE [facility] 11-23-2022 11:38-0400 Heart rate 76 /min Yeyo ROWE [facility] 11-23-2022 11:38-0400 Systolic blood pressure 130 mm[Hg] Yeyo ROWE [facility] 07-04-2022 10:30-0500 Body height 180.34 cm Jenaro Lynch Other [employer] Other 07-04-2022 10:30-0500 Body mass index (BMI) [Ratio] 29.43 kg/m2 Jenaro Lynch Other [employer] Other 07-04-2022 10:30-0500 Body weight 95.71 kg Jenaro Lynch Other [employer] Other 07-04-2022 10:30-0500 Diastolic blood pressure 86 mm[Hg] Jenaro Syed Other [employer] Other 07-04-2022 10:30-0500 Respiratory rate 16 /min Jenaro Fraustojoe Other [employer] Other 07-04-2022 10:30-0500 Systolic blood pressure 146 mm[Hg] Jenaro Syed Other [employer] Other 02-15-2022 13:45-0400 Body height 180.34 cm Jenaro Lynch Other [employer] Other 02-15-2022 13:45-0400 Body mass index (BMI) [Ratio] 30.12 kg/m2 Jenarogorge Fraustojoe Other [employer] Other 02-15-2022 13:45-0400 Body weight 97.98 kg Jenaro Fraustojoe Other [employer] Other 02-15-2022 13:45-0400 Diastolic blood pressure 62 mm[Hg] Jenaro Lynch Other [employer] Other 02-15-2022 13:45-0400 Respiratory rate 16 /min Jenaro Lynch Other [facility] [place] Other 02-15-2022 13:45-0400 SaO2% (BldA) [Mass fraction] 96 % Jenaro Lynch Other [facility] [place] Other 02-15-2022 13:45-0400 Systolic blood pressure 100 mm[Hg] Jenaro Lynch Other [facility] [place] Other 10-26-2021 10:01-0400 Body height 180.34 cm Jenaro Mari Lynch Work Phone: [facility] DO Work Phone: 10-26-2021 10:01-0400 Body mass index (BMI) [Ratio] 29.99 kg/m2 Jenaro Lynch Work Phone: [facility] [place] [facility] DO Work Phone: 10-26-2021 10:01-0400 Body surface area Derived from formula 2.17 m2 Jenaro Lynch Work Phone: [facility] 250 DO Work Phone: 10-26-2021 10:01-0400 Body weight 97.52 kg Jenaro Mari Lynch Work Phone: [facility] DO Work Phone: 10-26-2021 10:01-0400 Diastolic blood pressure 70 mm[Hg] Jenaro Mari Lynch Work Phone: [facility] [facility] DO Work Phone: 10-26-2021 10:01-0400 Heart rate 68 /min Jenaro Mari Lynch Work Phone: [facility] DO Work Phone: 10-26-2021 10:01-0400 Systolic blood pressure 104 mm[Hg] Jenaro Lynch Work Phone: [facility] DO Work Phone: 10-19-2021 12:20-0400 Body height 180.34 cm Azjuan [employer] Other [employer] Other 10-19-2021 12:20-0400 Body mass index (BMI) [Ratio] 30.65 kg/m2 [employer]iz [employer] Other [employer] Other 10-19-2021 12:20-0400 Body temperature 96.8 [degF] Azjuan [employer] Other [employer] Other 10-19-2021 12:20-0400 Body weight 99.7 kg [employer]iz [employer] Other [employer] Other 10-19-2021 12:20-0400 Diastolic blood pressure 71 mm[Hg] Aziz [employer] Other [employer] Other 10-19-2021 12:20-0400 Respiratory rate 18 /min [employer]juan [employer] Other [employer] Other 10-19-2021 12:20-0400 SaO2% (BldA) [Mass fraction] 98 % Aziz Bakhous Other [employer] Other 10-19-2021 12:20-0400 Systolic blood pressure 111 mm[Hg] Aziz Bakhous Other [employer] Other 07-27-2021 14:00-0500 Body height 180.34 cm Jenaro Fraustos Other [employer] Other 07-27-2021 14:00-0500 Body mass index (BMI) [Ratio] 30.4 kg/m2 Jenaro Syed Other [employer] Other 07-27-2021 14:00-0500 Body weight 98.88 kg Jenaro Syed Other [employer] Other 07-27-2021 14:00-0500 Diastolic blood pressure 76 mm[Hg] Jenaro Lynch Other [employer] Other 07-27-2021 14:00-0500 Respiratory rate 18 /min Jenaro Syed Other [employer] Other 07-27-2021 14:00-0500 SaO2% (BldA) [Mass fraction] 98 % Jenaro Syed Other [employer] Other 07-27-2021 14:00-0500 Systolic blood pressure 112 mm[Hg] Jenaro Syed Other [employer] Other Encounters Encounter Date Encounter Type Care Provider Facility Start: 02-12-2024 ambulatory Yeyo Ley ty:[facility] Start: 11-30-2023 End: 11-30-2023 ambulatory [facility] Start: 11-23-2023 End: 11-23-[address] [facility] Start: 11-15-2023 End: 11-15-2023 ambulatory MAAME Hooker [facility] Start: 11-14-2023 End: 11-14-2023 Evaluation and management of inpatient [facility] Start: 11-07-2023 End: 11-14-2023 Evaluation and management of inpatient ROSIE Brian [facility] Start: 11-07-2023 End: 11-14-2023 Evaluation and management of inpatient PADMINI MONTES [facility] Start: 10-24-2023 End: 10-24-2023 ambulatory [facility] Start: 10-24-2023 End: 10-24-2023 Encounter for preprocedural cardiovascular examination [facility] Start: 10-24-2023 End: 10-24-2023 Office outpatient visit 25 minutes Raulito Inman MD Work Phone: [facility] Comment on above: History of PTCA; Hyperlipidemia, unspecified hyperlipidemia type; Encounter for pre-operative cardiovascular clearance; Former smoker Start: 10-24-2023 End: 10-24-2023 Patient encounter status Raulito Inman MD Work Phone: [facility] Work Phone: Start: 10-23-2023 End: 10-23-2023 ambulatory XXXX NONE Facility:[facility] Start: 10-23-2023 End: 10-23-2023 Patient encounter procedure Padmini Montes [facility] Start: 10-19-2023 End: 10-20-2023 ambulatory Padmini Montes Facility:[facility] Start: 10-19-2023 ambulatory Padmini Montes Facili ty:[facility] Start: 10-19-2023 End: 10-19-2023 Patient encounter procedure Padmini Montes [facility] Start: 10-18-2023 End: 10-18-2023 [facility] Start: 10-06-2023 Non-patient / Non-visit DO Phillip Lynch Work Phone: [facility] Work Phone: Start: 10-05-2023 End: 10-05-2023 ambulatory [facility] Facility:[facility] Start: 10-05-2023 End: 10-05-2023 ambulatory DO Jenaro Kuns Work Phone: [facility] Work Phone: Start: 10-05-2023 End: 10-05-2023 Departed Referred DO Jenaro Kuns Work Phone: [facility] Start: 10-05-2023 Non-patient / Non-visit DO Phillip an Kuns Work Phone: [facility] Work Phone: Start: 10-04-2023 Non-patient / Non-visit DO Phillip an Kuns Work Phone: [facility] Work Phone: Start: 10-03-2023 Non-patient / Non-visit DO Phillip an Kuns Work Phone: [facility] Work Phone: Start: 10-02-2023 End: 10-02-2023 ambulatory [facility] Facility:[facility] Start: 10-02-2023 End: 10-02-2023 ambulatory DO Jenaro Kuns Work Phone: [facility] Work Phone: Start: 10-02-2023 End: 10-02-2023 Departed Referred DO Jenaro Kuns Work Phone: [facility] Start: 10-02-2023 Non-patient / Non-visit DO Phillip an Kuns Work Phone: [facility] Work Phone: Start: 10-01-2023 Non-patient / Non-visit DO Phillip an Kuns Work Phone: [facility] Work Phone: Start: 09-30-2023 Non-patient / Non-visit DO Phillip an Kuns Work Phone: [facility] Work Phone: Start: 09-27-2023 Non-patient / Non-visit DO Phillip an Kuns Work Phone: [facility] Work Phone: Start: 09-21-2023 End: 09-21-2023 ambulatory Jenaro Jetts Facility:[facility] Start: 09-21-2023 End: 09-21-2023 ambulatory DO Jenaro Jetts Work Phone: [facility] Work Phone: Start: 09-21-2023 End: 09-21-2023 Departed Referred DO Jenaro Jetts Work Phone: [facility]-LAB Path Spec [facility] Start: 09-21-2023 Non-patient / Non-visit DO Phillip an Kuns Work Phone: [facility] Work Phone: Start: 09-18-2023 Non-patient / Non-visit DO Phillip an Kuns Work Phone: [facility] Work Phone: Start: 09-08-2023 End: 09-08-2023 ambulatory Yeyo ROWE Facility:[facility] Start: 09-08-2023 End: 09-08-2023 Patient encounter procedure Yeyo ROWE [facility] Start: 08-10-2023 Non-patient / Non-visit DO Phillip an Kuns Work Phone: [facility] Work Phone: Start: 08-08-2023 Non-patient / Non-visit DO Phillip an Kuns Work Phone: [facility] Work Phone: Start: 08-07-2023 Non-patient / Non-visit DO Phillip an Kuns Work Phone: [facility] Work Phone: Start: 08-06-2023 Non-patient / Non-visit DO Phillip an Kuns Work Phone: [facility] Work Phone: Start: 08-05-2023 Non-patient / Non-visit DO Phillip an Kuns Work Phone: [facility] Work Phone: Start: 08-04-2023 Non-patient / Non-visit DO Phillip an Kuns Work Phone: [facility] Work Phone: Start: 08-03-2023 Non-patient / Non-visit DO Phillip an Kuns Work Phone: [facility] Work Phone: Start: 07-31-2023 ambulatory Jenaro Lynch Facility:[facility] Start: 07-31-2023 Registered Recurring DO Jenarogorge Fraustojoe Work Phone: [facility]-Infusion Therapy - O/P Work Phone: Start: 07-26-2023 Non-patient / Non-visit DO Phillip an Kuns Work Phone: [facility] Work Phone: Start: 07-12-2023 End: 07-12-2023 Emergency department patient visit Jenaro Lynch Facility:[facility] Start: 07-12-2023 End: 07-12-2023 Emergency department patient visit DO Jenaro Lynch Work Phone: [facility] Work Phone: Start: 07-07-2023 End: 07-07-2023 ambulatory Jenaro Fraustojoe Other [employer] Other Start: 07-07-2023 Telephone encounter Jen[facility] Start: 07-03-2023 End: 07-03-2023 ambulatory Yeyo ROWE Facility:[facility] Start: 06-26-2023 End: 06-26-2023 ambulatory Jenaro Lynch Other [employer] Other Start: 06-26-2023 Telephone encounter Jenaro Lynch [facility] Start: 06-02-2023 End: 06-02-2023 ambulatory Yeyo ROWE Facility:[facility] Start: 06-02-2023 End: 06-02-2023 Patient encounter procedure Yeyo ROWE [facility] Start: 05-16-2023 End: 05-16-2023 ambulatory Jenaro Lynch Other [employer] Other Start: 05-16-2023 Telephone encounter Jenaro Lynch [facility] Start: 05-03-2023 End: 05-03-2023 ambulatory Yeyo ROWE Facility:[facility] Start: 05-03-2023 End: 05-03-2023 Patient encounter procedure Yeyo ROWE [facility] Start: 04-28-2023 End: 04-28-2023 ambulatory Jenaro Lynch Other [employer] Other Start: 04-28-2023 Telephone encounter Jenaro Lynch [facility] Start: 04-18-2023 End: 04-18-2023 ambulatory Yeyo ROWE Facility: [place] Start: 04-18-2023 End: 04-18-2023 Patient encounter procedure Yeyo ROWE [facility] Start: 04-17-2023 ambulatory Yeyo ROWE Facili ty:[facility] [place] Start: 04-13-2023 End: 04-13-2023 ambulatory Yeyo ROWE Facility:CD:[id number] Start: 04-11-2023 End: 04-11-2023 ambulatory Jenaro Lynch Other [employer] Other Start: 04-11-2023 Telephone encounter Jenaro Lynch [facility] [place] Start: 04-06-2023 End: 04-06-2023 ambulatory Jenaro Lynch Other [employer] Other Start: 04-06-2023 Encounter for other preprocedural examination Jenaro Lynch [facility] [place] Start: 04-06-2023 Office outpatient vi sit 25 minutes Jenaro Lynch [facility] [place] Start: 03-28-2023 End: 03-28-2023 ambulatory Jenaro Lynch Other [employer] Other Start: 03-28-2023 Telephone encounter Jenaro Lynch [facility] [place] Start: 03-20-2023 ambulatory Yeyo ROWE Facili ty:[facility] Start: 03-15-2023 End: 03-15-2023 ambulatory Yeyo ROWE [employer] Other Start: 03-15-2023 Office outpatient vi sit 25 minutes Jenaro Lynch [facility] [place] Start: 03-10-2023 End: 03-10-2023 ambulatory Jenaro Lynch Other [employer] Other Start: 03-10-2023 Telephone encounter Jenaro Lynch [facility] [place] Start: 02-15-2023 Office outpatient vi sit 15 minutes Jenaro Lynch Work Phone: [facility] 250 DO Work Phone: Start: 02-15-2023 ambulatory Dolores Feldman Facility:[id number] Start: 02-14-2023 End: 02-14-2023 ambulatory Yeyo ROWE Facility:[facility] Start: 02-14-2023 End: 02-14-2023 Patient encounter procedure Yeyo Viktoria [facility] Start: 02-08-2023 End: 02-08-2023 ambulatory Yeyo ROWE Facility:[facility] Start: 02-08-2023 End: 02-08-2023 Patient encounter procedure Yeyo Viktoria [facility] Start: 01-30-2023 End: 01-30-2023 ambulatory Yeyo ROWE Facility:[facility] Start: 01-30-2023 End: 01-30-2023 Patient encounter procedure Yeyo R ROWE [facility] Start: 01-25-[address] Jenaro Lynch Facility:[id number] Start: 01-17-2023 End: 01-17-2023 ambulatory Jenaro Lynch Other [facility] Other Start: 01-17-2023 Telephone encounter Jenaro Lynch [facility] [place] Start: 01-11-2023 Office outpatient vi sit 25 minutes Jenaro Lynch Work Phone: [facility] 600 DO Work Phone: Start: 01-11-2023 ambulatory Dolores Feldman Facility:[id number] Start: 12-28-2022 End: 12-28-2022 ambulatory Yeyo ROWE Facility:[facility] Start: 12-28-2022 End: 12-28-2022 Patient encounter procedure Yeyo ROWE [facility] Start: 12-21-2022 ambulatory Yeyo ROWE Facili ty:[facility] Start: 12-01-2022 End: 12-01-2022 ambulatory Jenaro Lynch Other [employer] Other Start: 12-01-2022 Office outpatient vi sit 25 minutes Jenaro Lynch [facility] [place] Start: 11-30-2022 ambulatory Yeyo ROWE Facility :[facility] Start: 11-23-2022 End: 11-23-2022 Patient encounter procedure Yeyo ROWE [facility] [place] Start: 10-07-2022 End: 10-07-2022 ambulatory Jenaro Lynch Other [employer] Other Start: 10-07-2022 Telephone encounter Jenaro Lynch [facility] [place] Start: 09-27-2022 End: 09-27-2022 ambulatory DO Jenaro Lynch Work Phone: [facility] Work Phone: Start: 09-27-2022 End: 09-27-2022 Patient encounter procedure DO Jenaro Lynch Work Phone: [facility]-Lab [facility] [place] Work Phone: Start: 09-21-2022 End: 09-21-2022 ambulatory Jenaro Lynch Other [employer] Other Start: 09-21-2022 Telephone encounter Jenaro Lynch [facility] [place] Start: 09-14-2022 End: 09-14-2022 ambulatory Jenaro Lynch Other [employer] Other Start: 09-14-2022 Telephone encounter Jenaro Lynch [facility] [place] Start: 09-02-2022 End: 09-02-2022 Patient encounter procedure DO Jenaro Lynch Work Phone: [facility] [place] Work Phone: Start: 08-25-2022 End: 08-25-2022 ambulatory Doris Barnes Other [employer] Other Start: 08-25-2022 Telephone encounter Doris Barnes [facility] Start: 08-22-2022 End: 08-22-2022 ambulatory Jenaro Lynch Other [employer] Other Start: 08-22-2022 Telephone encounter Jenaro Lynch [facility] [place] Start: 08-05-2022 End: 08-05-2022 ambulatory Jenaro Lynch Other [employer] Other Start: 08-05-2022 Telephone encounter Jenaro Lynch [facility] [place] Start: 08-04-2022 End: 08-04-2022 ambulatory Jenaro Lynch Other [employer] Other Start: 08-04-2022 Telephone encounter Jenaro Lynch [facility] [place] Start: 07-28-2022 End: 07-28-2022 ambulatory Jenaro Lynch Other [employer] Other Start: 07-28-2022 Telephone encounter Jenaro Lynch [facility] Start: 07-25-2022 End: 07-25-2022 ambulatory Jenaro Lynch Other [employer] Other Start: 07-25-2022 Nursing evaluation o f patient and report Jenaro Lynch [facility] [place] Start: 07-19-2022 End: 07-19-2022 ambulatory Jenaro Lynch Other [employer] Other Start: 07-19-2022 Telephone encounter Jenaro Lynch [facility] [place] Start: 07-15-2022 End: 07-15-2022 ambulatory Jenaro Fraustojoe Other [employer] Other Start: 07-15-2022 Telephone encounter Jenaro Lynch [facility] [place] Start: 07-13-2022 End: 07-13-2022 ambulatory Jenaro Lynch Other [employer] Other Start: 07-13-2022 Nursing evaluation o f patient and report Jenaro Lynch [facility] [place] Start: 07-12-[address] Raulito gutierrez [facility] Facility: Start: 07-05-2022 End: 07-05-2022 ambulatory Jenaro Lynch Other [employer] Other Start: 07-05-2022 Telephone encounter Jenaro Lynch [facility] [place] Start: 07-05-2022 Rx Renewal Jenaro Lynch Work Phone: [facility] 250 DO Work Phone: Start: 07-04-2022 End: 07-04-2022 ambulatory Jenaro Lynch Other [employer] Other Start: 07-04-2022 Office outpatient vi sit 25 minutes Jenaro Lynch [facility] [place] Start: 06-30-2022 End: 06-30-2022 ambulatory Jenaro Lynch Other [employer] Other Start: 06-30-2022 Telephone encounter Jenaro Lynch [facility] [place] Start: 05-25-2022 End: 05-25-2022 ambulatory Jenaro Lynch Other [employer] Other Start: 05-25-2022 Telephone encounter Jenarogorge Lynch [facility] [place] Start: 04-25-2022 End: 04-25-2022 ambulatory Jenarogorge Lynch Other [employer] Other Start: 04-25-2022 Telephone encounter Jenaro Lynch [facility] [place] Start: 04-19-2022 End: 04-19-2022 ambulatory Jenarogorge Lynch Other [employer] Other Start: 04-19-2022 Telephone encounter Jenaro Lynch [facility] [place] Start: 03-22-2022 End: 03-22-2022 ambulatory Jenarogorge Lynch Other [employer] Other Start: 03-22-2022 Telephone encounter Jenarogorge Lynch [facility] [place] Start: 03-01-2022 End: 03-01-2022 ambulatory Jenaro Lynch Other [employer] Other Start: 03-01-2022 Telephone encounter Jenaro Lynch [facility] [place] Start: 02-18-2022 End: 02-18-2022 ambulatory Jenaro Lynch Other [employer] Other Start: 02-18-2022 Telephone encounter Jenarogorge yLnch [facility] [place] Start: 02-15-2022 End: 02-15-2022 ambulatory Verona Abhit Other [employer] Other Start: 02-15-2022 Office outpatient vi sit 25 minutes Jenaro Jettjoe [facility] [place] Start: 02-15-2022 Telephone encounter Verona Moet [facility] Start: 01-21-2022 End: 01-21-2022 ambulatory Jenaro Lynch Other [employer] Other Start: 01-21-2022 Telephone encounter Jenaro Lynch [facility] [place] Start: 01-19-2022 End: 01-19-2022 ambulatory Jenaro Lynch Other [employer] Other Start: 01-19-2022 Telephone encounter Jenaro Lynch [facility] [place] Start: 01-13-2022 End: 01-13-2022 ambulatory Jenarogorge Lynch Other [employer] Other Start: 01-13-2022 Telephone encounter Jenarogorge Lynch [facility] [place] Start: 12-23-2021 End: 12-23-2021 ambulatory Jenaro Jettjoe Other [employer] Other Start: 12-23-2021 Telephone encounter Jenarogorge Lynch [facility] [place] Start: 11-24-2021 End: 11-24-2021 ambulatory Jenarogorge Lynch Other [employer] Other Start: 11-24-2021 Telephone encounter Jenaro Lynch [facility] [place] Start: 11-03-2021 Rx Renewal Jenaro Lynch Work Phone: [facility] 250 DO Work Phone: Start: 10-26-2021 Office outpatient vi sit 25 minutes Jenaro Lynch Work Phone: [facility] 250 DO Work Phone: Start: 10-25-2021 End: 10-25-2021 ambulatory Jenaro Lynch Other [employer] Other Start: 10-25-2021 Telephone encounter Jenaro Lynch [facility] [place] Start: 10-19-2021 End: 10-19-2021 ambulatory Amina Fagan Other [employer] Other Start: 10-19-2021 Office outpatient vi sit 25 minutes Azjuan Kinseys [facility] Start: 10-18-2021 End: 10-18-2021 ambulatory Azjuan Kinseys Other [employer] Other Start: 10-18-2021 Telephone encounter Amina Kinseys [facility] Start: 10-12-2021 End: 10-13-2021 ambulatory DUARTESANDY HENRY . Facility: Start: 10-08-2021 End: 10-08-2021 ambulatory Jenaro Lynch Other [employer] Other Start: 10-08-2021 Telephone encounter Jenaro Lynch [facility] [place] Start: 09-22-2021 End: 09-22-2021 ambulatory Jenaro Lynch Other [employer] Other Start: 09-22-2021 Telephone encounter Jenaro Lynch [facility] [place] Start: 09-21-2021 End: 09-21-2021 ambulatory Jenaro Lynch Other [employer] Other Start: 09-21-2021 Telephone encounter Jenaro Lynch [facility] [place] Start: 08-09-2021 End: 08-09-2021 ambulatory Jenaro Lynch Other [employer] Other Start: 08-09-2021 Telephone encounter Jenaro Lynch [facility] [place] Start: 08-02-2021 End: 08-02-2021 ambulatory Jenaro Lynch Other [employer] Other Start: 08-02-2021 Telephone encounter Jenaro Lynch [facility] [place] Start: 07-27-2021 End: 07-27-2021 ambulatory Jenaro Lynch Other [employer] Other Start: 07-27-2021 Office outpatient vi sit 25 minutes [facility] Start: 06-23-2021 End: 06-23-2021 ambulatory Jenaro Lynch Other [facility] Other Start: 06-23-2021 Telephone encounter Jenaro Lynch [facility] Start: 06-22-2021 Rx Renewal Jenaro Lynch Work Phone: [facility] 250 DO Work Phone: Start: 05-03-2021 End: 05-03-2021 ambulatory Jenaro Lynch Other [facility] Other Start: 05-03-2021 Telephone encounter Jenaro Lynch [facility] Procedures Date Procedure Procedure Detail Performing Clinician Start: 10-24-2023 Ecg routine ecg w/le ast 12 lds w/i&r Raulito Inman MD Work Phone: Start: 10-02-2023 Acid Fast Smear DO Jose Anegl Lynch Work Phone: Start: 10-02-2023 AFB Specimen [...] procedure 10/21/2024 8:00 AM EDT Office Visit [facility] [address] [address] [place] [id number] 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, 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 [address] [facility] [address] [place] [address] [facility] Start: 02-04-2024 Influenza vaccination Influenza Vaccine (Season Ended) [facility] Start: 11-15-2023 FUV, Provider: Raulito Inman, Status: Pen, Time: 2:40 PM FUV, Provider: Raulito Inman, Status: Pen, Time: 2:40 PM [facility] 250 DO Work Phone: Start: 10-02-2023 Acid Fast Culture Acid Fast Culture [facility] Start: 09-30-2023 Blood Culture 1 Blood Culture 1 [facility] Start: 09-30-2023 Blood Culture 2 Blood Culture 2 [facility] Start: 09-30-2023 Wound Culture Wound Culture [facility] Start: 09-21-2023 Abscess Culture Abscess Culture [facility] Start: 08-10-2023 Acid Fast Culture Acid Fast Culture [facility] Start: 08-05-2023 Wound Culture Wound Culture [facility] Start: 07-12-2023 Duplex scan of lower limb veins US venous duplex LE BI [facility] Start: 07-12-2023 US Lower extremity vein - bilateral [facility] Start: 07-12-2023 Duplex scan veins of upper limb US venous duplex UE LT [facility] Start: 07-12-2023 US Upper extremity vein - left [facility] Start: 02-15-2023 FUV, Provider: Dolores Velazquez, Status: Pen, Time: 10:00 AM FUV, Provider: Dolores Velazquez, Status: Pen, Time: 10:00 AM [facility] 600 DO Work Phone: Start: 02-03-2023 COVID-19 Vaccine ( season) COVID-19 Vaccine ( season) [facility] Start: 01-25-2023 STRESS NUC, Provider: [facility] NUCLEAR 01,[id number], Status: Pen, Time: 8:30 AM STRESS NUC, Provider: [facility] NUCLEAR 01,[id number], Status: Pen, Time: 8:30 AM -[facility] 600 DO Work Phone: Start: 07-12-2022 FUV, Provider: Raulito Inman, Status: Pen, Time: 9:20 AM FUV, Provider: Raulito Inman, Status: Pen, Time: 9:20 AM -[facility] 250 DO Work Phone: Start: 10-26-2021 FUV, Provider: Raulito Inman, Status: Pen, Time: 9:30 AM FUV, Provider: Raulito Inman, Status: Pen, Time: 9:30 AM -[facility] 250 DO Work Phone: Start: 03-05-2019 Pneumococcal Vaccine: Pediatrics (0 to 5 Years) and At-Risk Patients (6 to 64 Years) (2 of 2 - PCV) Pneumococcal Vaccine: Pediatrics (0 to 5 Years) and At-Risk Patients (6 to 64 Years) (2 of 2 - PCV) [facility] Start: 2015 Zoster Vaccines (1 of 2) Zoster Vaccines (1 of 2) [facility] Start: 1987 DTaP/Tdap/Td Vaccines (1 - Tdap) DTaP/Tdap/Td Vaccines (1 - Tdap) [facility] Start: 1984 Hepatitis B Vaccines (1 of 3 - 19+ 3-dose series) Hepatitis B Vaccines (1 of 3 - 19+ 3-dose series) [facility] Start: 1984 Urine screening for protein Diabetes: Urine Protein Screening [facility] Start: 1983 Hepatitis C screening Hepatitis C Screening [facility] Start: 1975 Diabetic foot examination Diabetes: Foot Exam [facility] Start: 1975 Glaucoma screening Diabetes: Retinopathy Screening [facility] Start: 1966 MMR Vaccines (1 of 1 - Standard series) MMR Vaccines (1 of 1 - Standard series) [facility] Start: 1965 Hemoglobin A1c measurement Diabetes: Hemoglobin A1C [facility] Start: 1965 HIV screening HIV Screening [facility] Start: 1965 Lipid panel Lipid Panel [facility] Start: 1965 Screening for malignant neoplasm of colon [facility] Start: 1965 Yearly Adult Physical Yearly Adult Physical [facility] Patient Education Dependent Edema (DC) [facility] Work Phone: Patient referral [facility] Work Phone: Immunizations Immunization Date Immunization Notes Care Provider Sachin pettit 11-13-2020 Pfizer-BioNTech COVI D-19 Vacc 30 MCG/0.3ML Intramuscular Suspension Jenaro Lynch Work Phone: [facility] 10-23-2020 Pfizer-BioNTech COVI D-19 Vacc 30 MCG/0.3ML Intramuscular Suspension Jenaro Lynch Work Phone: [facility] 01-14-2019 influenza, seasonal, injectable Jenaro Lynch Other [facility] 01-14-2019 influenza virus vacc ine, unspecified formulation Yeyo ROWE [facility] 04-02-2018 influenza virus vacc ine, unspecified formulation Yeyo ROWE [facility] 04-02-2018 influenza, injectabl e, quadrivalent, preservative free DO Jenaro Lynch Work Phone: [facility] 03-05-2018 influenza virus vacc ine, unspecified formulation Jenaro Lynch Work Phone: [facility] 250 DO Work Phone: 03-05-2018 pneumococcal polysaccharide vaccine, 23 valent [facility] Work Phone: 03-07-2016 influenza virus vacc ine, unspecified formulation Yeyo ROWE [facility] 03-07-2016 influenza, injectabl e, quadrivalent, preservative free [facility] Work Phone: 02-22-2016 pneumococcal polysaccharide vaccine, 23 valent Jenaro Lynch Work Phone: [facility] Payers Date Payer Category Payer Unknown 2023 Self-pay [id number] 2022 Private Health Insurance [id number] 2022 Private Health Insurance [id number] 2022 Private Health Insurance [id number] 2022 Medicaid [id number] 1965 Unknown [id number] 2.16.84 0.1.907165.3.579.2.593 1965 Unknown [id number] 2.16.8 40.1.975203.3.579.2.1068 1965 Unknown [id number] 2.16. 840.1.359960.3.579.2.356 1965 Unknown [id number] 2.16. 840.1.362334.3.579.2.356 1965 Unknown [id number] 2.16. 840.1.050758.3.579.2.356 1965 Unknown [id number] 2.16.8 40.1.095695.3.579.2.1244 1965 Unknown [id number] 2.16.8 40.1.348250.3.579.2.727 1965 Unknown [id number] 2.16.8 40.1.802131.3.579.2.1285 1965 Unknown [id number] 2.16.8 40.1.770936.3.579.2.1285 1965 Unknown [id number] 2.16.8 40.1.359087.3.579.2.1285 1965 Unknown [id number] 2.16.8 40.1.512258.3.579.2.1285 1965 Unknown [id number] 2.16.8 40.1.149308.3.579.2.1285 1965 Unknown [id number] 2.16.8 40.1.298759.3.579.2.1285 1965 Unknown [id number] 2.16.8 40.1.118951.3.579.2.1285 1965 Unknown [id number] 2.16.8 40.1.222103.3.579.2.1285 1965 Unknown [id number] 2.16.8 40.1.422678.3.579.2.7 1965 Unknown [id number] 2.16.8 40.1.302750.3.579.2.727 1965 Unknown [id number] 2.16.8 40.1.982524.3.579.2. 1965 Unknown [id number] 2.16.8 40.1.280387.3.579.2.727 1965 Unknown [id number] 2.16.8 40.1.996283.3.579.2.7 1965 Unknown [id number] 2.16.8 40.1.169717.3.579.2.727 1965 Unknown [id number] 2.16.8 40.1.504361.3.579.2.727 1965 Unknown [id number] 2.16.8 40.1.026160.3.579.2.727 1965 Unknown [id number] 2.16.8 40.1.297266.3.579.2.727 1965 Unknown [id number] 2.16.8 40.1.116798.3.579.2.727 1965 Unknown [id number] 2.16.8 40.1.394121.3.579.2.727 1965 Unknown [id number] 2.16.8 40.1.614587.3.579.2.727 1965 Unknown [id number] 2.16.8 40.1.572851.3.579.2.727 1965 Unknown [id number] 2.16.8 40.1.131671.3.579.2.727 1965 Unknown [id number] 2.16.8 40.1.397943.3.579.2.727 1965 Unknown [id number] 2.16.8 40.1.907628.3.579.2.727 1965 Unknown [id number] 2.16.8 40.1.564355.3.579.2.1286 1959 Unknown [id number] 2.1 6.840.1.412077.19 Unknown [id number] 2.16.8 40.1.674500.3.579.2.531 Unknown [id number] 2.16.8 40.1.002538.3.579.2.531 Unknown [id number] 2.16.8 40.1.254076.3.579.2.531 Unknown [id number] 2.16.8 40.1.066727.3.579.2.531 Unknown [id number] Social History Date Type Detail Facility Start: 03-05-2024 Caffeine use Caffeine use [employer] Other Comment on above: 2 cups coffee, 4-6 c ups tea daily, occaional soda; qauit 07/2020; Start: 08-08-2023 Sex Assigned At F [facility] Start: 07-14-2020 End: 07-12-2023 Tobacco smoking status NHIS Smoker (finding) [facility] Start: 1965 Sex Assigned At Male F [facility] Start: 11-23-2022 End: 10-23-2023 Tobacco smoking status Heavy tobacco smoker (finding) [facility] Tobacco smoking status Never [facility] Start: 10-24-2023 Tobacco smoking stat us NHIS Ex-smoker [facility] End: 06-05-2020 History of tobacco use Cigarette Smoker [facility] Work Phone: Start: 10-24-2023 Tobacco use and exposure Smokeless tobacco non-user [facility] Work Phone: Start: 10-24-2023 Alcoholic beverage intake Lifetime non-drinker (finding) [facility] Work Phone: Start: 1965 Sex assigned at Not on file [facility] Work Phone: Start: 10-14-2023 End: 10-24-2023 Exposure to SARS-CoV-2 (event) Not sure [facility] Medical Equipment Procedure Code Equipment Code [...] bilia ry stentMultiple peripheral artery stent, bare-metal [id number] [facility] Start: 07-14-2020 Functional Status Date Assessment Result Facility 10-23-2023 Functional Status No [facility] 06-02-2023 Functional Status N/A [facility] 02-14-2023 Functional Status N/A [facility] 01-30-2023 Functional Status N/A [facility] 11-23-2022 Functional Status N/A [facility] [place] Clinical Notes 06-23-2021 to 10-24-2023 Raulito Inman MD - 10/24/2023 10:20 AM EDTPatient Instructions Note Date & Type Note Facility 10-24-2023 Note Sinus tachycardia Rightward axis Poor anterior R wave progression QTc 481 ms [facility] 10-24-2023 History of Present illness [...] discussion and plan. documented in this encounter [facility] Work Phone: 10-24-2023 Instructions Rosemary Benavides [...] a cardiac standpoint documented in this encounter [facility] Work Phone: 07-13-2023 Hospital Discharge instructions Follow Up Care 07/13/2023 12:04:02 With:SOLEDAD HERRERA, Yeyo Blum, URL Address: [address] [place] [address]- When: Unknown [facility] 06-26-2023 Evaluation note Encounter Date Diagnosis Assessment Notes Jun, Hyperlipidemia (ICD-10 - E78.5) [employer] Other [id number] Hospital Discharge instructions Patient Education 06/02/2023 11:57:43 [...] urethra. Follow these instructions at home: Take pefz-zgw-uzimoup and prescription medicines only as told by [...] provider. Document Revised: 12/08/2021 Document Reviewed: 12/08/2021 [employer] Patient Education 2022 [employer]. Follow Up Care 06/01/2023 14:05:36 With:SOLEDAD HERRERA, Yeyo Blum, URL Address: [address] [place] [address]- When: Unknown [facility] 12-12-2023 Evaluation note* Encounter Date Diagnosis Assessment Notes Treatment Notes Treatment Clinical Notes May, 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) [facility] Other 11-24-2023 Evaluation note* Encounter Date Diagnosis Assessment Notes Treatment Notes Treatment Clinical Notes Apr, Diabetic nephropathy (ICD-10 - E11.21) [employer] Other 11-07-2023 Evaluation note* Encounter Date Diagnosis Assessment Notes Treatment Notes Treatment Clinical Notes Apr, Left arm pain (ICD-10 - M79.602) [employer] Other 11-02-2023 Evaluation note* Encounter Date Diagnosis [...] and to have his surgery as scheduled. 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 He was found to have developed [...] to continue to montior this at home. [employer] Other 10-09-2023 Note [id number] Discharge instructions Patient Education [...] including vitamins, herbs, eye drops, creams, and lhnb-tho-ksnyzoe medicines. Any problems you or family members [...] provider tells you to take them. Taking yqzn-zwq-wgaulug medicines, vitamins, herbs, and supplements. Surgery safety [...] provider. Document Revised: 02/15/2022 Document Reviewed: 02/15/2022 [employer] Patient Education 2022 [employer]. [facility]09-12-2023 Note [id number]:127[facility] 02-14-2023 [id number]:127[facility]08-28-2023 Hospital Discharge instructions Patient Education 01/30/2023 [...] including vitamins, herbs, eye drops, creams, and wuix-jwk-zehcvfp medicines. ?Whether you are or may be [...] provider. Document Revised: 02/02/2022 Document Reviewed: 12/25/2020 [employer] Patient Education 2022 [employer] 01/30/2023 11:22:30 Cystoscopy Cystoscopy Cystoscopy is [...] including vitamins, herbs, eye drops, creams, and msba-vhu-chwgojn medicines. Any problems you or family members [...] provider tells you to take them. Taking vwlf-mhn-mlqetih medicines, vitamins, herbs, and supplements. Tests You [...] Follow these instructions at home: Medicines Take waqm-msk-tjqjlsg and prescription medicines only as told by [...] provider. Document Revised: 02/02/2022 Document Reviewed: 01/01/2021 [employer] Patient Education 2022 [employer]. Follow Up Care 11/23/2022 13:02:56 With:SOLEDAD HERRERA, Yeyo Blum, URL Address: [facility] [address] [place] [phone] When: Unknown Comments:sched cysto/uros [facility] 08-15-2023 Evaluation note* Encounter Date Diagnosis Assessment Notes Treatment Notes Treatment Clinical Notes Jan, Diabetic nephropathy (ICD-10 - E11.21) [employer] Other 06-29-2023 Evaluation note* Encounter Date Diagnosis [...] reviewed. 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 [employer] Other 06-21-2023 Hospital Discharge instructions Patient Education [...] provider. Document Revised: 08/11/2021 Document Reviewed: 05/07/2021 [employer] Patient Education 2021 [employer]. [facility] Up [facility] 09/14/2022 14:23:26 With:SOLEDAD HERRERA, Yeyo Blum, URL Address: [facility] [address], [place] [address]- When: Unknown [facility] [place] 05-05-2023 Evaluation note* Encounter Date Diagnosis Assessment Notes Treatment Notes Treatment Clinical Notes October, Erectile dysfunction, unspecified erectile dysfunction type (ICD-10 - N52.9) [employer] Other 04-19-2023 Evaluation note* Encounter Date Diagnosis Assessment Notes Treatment Notes Treatment Clinical Notes Sep, 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) [employer] Other 04-12-2023 Evaluation note* Encounter Date Diagnosis Assessment Notes Treatment Notes Treatment Clinical Notes Sep, 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) Sep, 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) [employer] Other 03-20-2023 Evaluation note* Encounter Date Diagnosis Assessment Notes Treatment Notes Treatment Clinical Notes Aug, Diabetic nephropathy (ICD-10 - E11.21) [employer] Other 03-03-2023 Evaluation note* Encounter Date Diagnosis Assessment Notes Treatment Notes Treatment Clinical Notes Aug, Pain in right leg (ICD-10 - M79.604) [employer] Other 03-02-2023 Evaluation note* Encounter Date Diagnosis Assessment Notes Treatment Notes Treatment Clinical Notes Aug, Pain in right leg (ICD-10 - M79.604) [employer] Other 02-20-2023 Evaluation note* Encounter Date Diagnosis Assessment Notes Treatment Notes Treatment Clinical Notes Jul, Intractable episodic headache, unspecified headache type (ICD-10 - R51.9) [employer] Other 02-14-2023 Evaluation note* Encounter Date Diagnosis Assessment Notes Treatment Notes Treatment Clinical Notes Jul, Acute intractable headache, unspecified headache type (ICD-10 - R51.9) [employer] Other 02-08-2023 Evaluation note* Encounter Date Diagnosis Assessment Notes Treatment Notes Treatment Clinical Notes Jul, Headache (ICD-10 - R51.9) [employer] Other 01-30-2023 Evaluation note* Encounter Date Diagnosis [...] medication and we will continue to monitor. [employer] Other 12-21-2022 Evaluation note* Encounter Date Diagnosis Assessment Notes Treatment Notes Treatment Clinical Notes May, Diabetic nephropathy (ICD-10 - E11.21) [employer] Other 11-21-2022 Evaluation note* Encounter Date Diagnosis Assessment Notes Treatment Notes Treatment Clinical Notes Apr, Diabetic nephropathy (ICD-10 - E11.21) [employer] Other 11-15-2022 Evaluation note* Encounter Date Diagnosis Assessment Notes Treatment Notes Treatment Clinical Notes Apr, Pain in right leg (ICD-10 - M79.604) [employer] Other 10-18-2022 Evaluation note* Encounter Date Diagnosis Assessment Notes Treatment Notes Treatment Clinical Notes Mar, Diabetic nephropathy (ICD-10 - E11.21) [employer] Other 09-13-2022 Evaluation note* Encounter Date Diagnosis Assessment Notes Treatment Notes Treatment Clinical Notes Feb, Hypertensive chronic kidney disease with stage 1 through stage 4 chronic kidney disease, or unspecified chronic kidney disease (ICD-10 - I12.9) [employer] Other 09-13-2022 Evaluation note* Encounter Date Diagnosis [...] scheduled. 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 Feb, Pain in right leg [...] Noted upon review of blood work results. [employer] Other 08-19-2022 Evaluation note* Encounter Date Diagnosis Assessment Notes Treatment Notes Treatment Clinical Notes Jan, Diabetic nephropathy (ICD-10 - E11.21) [employer] Other 08-17-2022 Evaluation note* Encounter Date Diagnosis Assessment Notes Treatment Notes Treatment Clinical Notes Jan, Diabetic nephropathy (ICD-10 - E11.21) [employer] Other 07-21-2022 Evaluation note* Encounter Date Diagnosis Assessment Notes Treatment Notes Treatment Clinical Notes Dec, Diabetic nephropathy (ICD-10 - E11.21) [employer] Other 06-22-2022 Evaluation note* Encounter Date Diagnosis Assessment Notes Treatment Notes Treatment Clinical Notes Nov, Diabetic nephropathy (ICD-10 - E11.21) [employer] Other 05-23-2022 Evaluation note* Encounter Date Diagnosis Assessment Notes Treatment Notes Treatment Clinical Notes October, Diabetic nephropathy (ICD-10 - E11.21) [employer] Other 05-17-2022 Evaluation note* Encounter Date Diagnosis [...] E11.59) October, 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 Inman. For this October, Other He did quit smoking since July 2020 [employer] Other 05-16-2022 Evaluation note* Encounter Date Diagnosis Assessment Notes Treatment Notes Treatment Clinical Notes October, Hypertensive chronic kidney disease with stage 1 through stage 4 chronic kidney disease, or unspecified chronic kidney disease (ICD-10 - I12.9) October, Stage 3 chronic kidney disease, unspecified whether stage 3a or 3b CKD (ICD-10 - N18.30) [employer] Other 05-06-2022 Evaluation note* Encounter Date Diagnosis Assessment Notes Treatment Notes Treatment Clinical Notes October, Pain in right leg (ICD-10 - M79.604) October, Pain in left leg (ICD-10 - M79.605) [employer] Other 04-20-2022 Evaluation note* Encounter Date Diagnosis Assessment Notes Treatment Notes Treatment Clinical Notes Sep, Diabetic nephropathy (ICD-10 - E11.21) [employer] Other 04-19-2022 Evaluation note* Encounter Date Diagnosis Assessment Notes Treatment Notes Treatment Clinical Notes Sep, Anxiety (ICD-10 - F41.9) Sep, Hypertensive chronic kidney disease with stage 1 through stage 4 chronic kidney disease, or unspecified chronic kidney disease (ICD-10 - I12.9) [employer] Other 03-07-2022 Evaluation note* Encounter Date Diagnosis Assessment Notes Treatment Notes Treatment Clinical Notes Aug, Anxiety (ICD-10 - F41.9) [employer] Other 02-22-2022 Evaluation note* Encounter Date Diagnosis [...] 12 pound weight loss from last visit. [employer] Other [id number] Evaluation note* Encounter Date Diagnosis Assessment Notes Treatment Notes Treatment Clinical Notes Jun, Diabetic nephropathy (ICD-10 - E11.21) [place] [email or web address] Other Evaluation + Plan note Future Appointments Appointment Date:12/21/2022 11:00:00 AM Scheduled Provider: Location:[facility] Appointment Type:URO Nurse Visit Appointment Date:01/30/2023 10:30:00 AM Scheduled Provider:Yeyo ROWE MD Location:[facility] Appointment Type:URO Office Visit [facility] Evaluation + Plan note Future Appointments Appointment Date:01/30/2023 10:15:00 AM Scheduled Provider:Yeyo ROWE MD Location:[facility] Appointment Type:URO Office Visit [facility] Evaluation + Plan note Future Appointments Appointment Date:02/01/2023 10:00:00 AM Scheduled Provider: Location:[facility] Appointment Type:Urology CALL PAT FT Appointment Date:02/08/2023 09:00:00 AM Scheduled Provider: Location:[facility] Appointment Type:Urology FT Appointment Date:02/14/2023 09:15:00 AM Scheduled Provider: Location:[facility] Appointment Type:Urology FT [facility] evaluation + Plan note Future Appointments Appointment Date:02/14/2023 09:15:00 AM Scheduled Provider: Location:[facility] App[facility]ments Appointment Date:03/20/2023 08:45:00 AM Scheduled Provider: Location:[facility] Appointment Type:URO Nurse Visit Appointment Date:04/05/2023 08:00:00 AM Scheduled Provider:[facility] App[facility]ments Appointment Date:05/03/2023 08:45:00 AM Scheduled Provider:[facility]OWE [facility] Evaluation + Plan note Future Appointments Appointment Date:07/03/2023 10:15:00 AM Scheduled Provider:Yeyo ROWE MD Location:[facility] Appointment Type:URO Office Visit [facility] evaluation + Plan note Future Appointments Appointment Date:10/23/2023 09:30:00 AM Scheduled Provider:Padmini Montes MD [facility] noteNo InformationNort [email or web address] Other Evaluation noteNo assessment information available [facility] Work Phone: Evaludztjq note* Diagnosis History of PTCA Postsurgical percutaneous transluminal coronary angioplasty status Hyperlipidemia, unspecified hyperlipidemia type Encounter for pre-operative cardiovascular clearance Former smoker Personal history of tobacco use, presenting hazards to health documented in this encounter [facility] Work Phone: Hishhqy general Narrative - Reported* Type Description Date [...] 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 He denies medication side effects. [facility] 600 DO Work Phone: History of [...] medication regimen. He denies medication side effects. [facility] 250 DO Work Phone: Hospital course Narrative No data available for this section [facility] Discharge instructions No data available for this section [facility] [place] Progress note No data available for this section [facility] [place] Chief Complaint SOLOMON FELDMAN is being seen [...] ECG 12 Lead Raulito Inman MD [address] [facility] 2, [address] [address] Referral ID Status Reason Start Date Expiration Date V isits Requested Visits Authorized [id number] Authorized 10/24/2023 10/23/2024 1 1 Specialty Diagnoses / Procedures Referred By Brett mandujano Referred To Contact Cardiology Diagnoses History of PTCA Procedures Follow Up In Cardiology Raulito Inman MD [address] [facility], [address] [place] [address] Referral ID Status Reason Start Date Expiration Date V isits Requested Visits Authorized [id number] Authorized 10/24/2023 10/23/2024 1 1 Reason CANCELLED consult and treat; previous patient of Dr. Sharpe last seen in 2020; persisting intractable headaches Diagnosis 1 Acute intractable he adache, unspecified headache type (R51.9) Referral Organization [facility] [place] Referring Provider First Name Jenaro Referring Provider Last Name Syed Referring Provider Specialty Family Jono hunter Referred Organization [facility] Referred Provider Lyssa Sharpe Referred Address [address] [facility],[place],[address] Referred Provider Specialty Neurology Referral Priority Routine [...] 10:23:53 AM >Spoke with Marilynn at [facility] and patient has been scheduled and [facility] 10:27:39 AM >Telephone encounter was sent Reason 03/31/22 @ 2:45pm consult and treat Diagnosis 1 Type 2 diabetes bobby itus with circulatory disorder (E11.59) Referral Organization [facility] [place] Referring Provider First Name Jenaro Referring Provider Last Name Syed Referring Provider Specialty Family Prac dale Referred Organization [facility] Referred Provider Doris Barnes Referred Address [address] [facility] [address],[place], [place],[address] Referred Provider Specialty Nurse Jono calderon Referral [...] ECG 12 Lead Raulito Inman MD [address] [place] [address] Referral ID Status Reason Start Date Expiration Date V isits Requested Visits Authorized [id number] Authorized 10/24/2023 10/23/2024 1 1 Care Teams (unrecognized sec tion and content) Team Status: Active Member Role Status Dates Jenaro Lynch DO Primary Care Provider Active Team Status: Inactive Member Role Status Dates Jenaor Lynch DO Primary Care Provider Active Shana Mclaughlin PA-C Attending Provider Active Team Status: Inactive Member Role Status Dates Jenaro Lynch DO Primary Care Provider Active Jenaro Lynch DO [facility] Attending Provider Active Team Status: Inactive [...] Provider Active Sta rt: October 06, 2023 Scheduling Assistant Relationship Specialty Start Date End Date Jenaro [...] DATE CREATED AUTHOR AUTHOR'S ORGANIZ ATION 01/27/2023 [facility] DATE CREATED AUTHOR AUTHOR'S ORGANIZ ATION 02/16/2023 [facility] DATE CREATED AUTHOR AUTHOR'S ORGANIZ ATION 02/16/2023 [employer] DATE CREATED AUTHOR AUTHOR'S ORGANIZ ATION 10/12/2023 [facility] DATE CREATED AUTHOR AUTHOR'S ORGANIZ ATION 10/22/2023 [facility] DATE CREATED AUTHOR AUTHOR'S ORGANIZ ATION 10/26/2023 [facility] DATE CREATED AUTHOR AUTHOR'S ORGANIZ ATION 10/26/2023 [facility] DATE CREATED AUTHOR AUTHOR'S ORGANIZ ATION 11/16/2023 [facility] DATE CREATED AUTHOR AUTHOR'S ORGANIZ ATION 11/25/[address] [facility] DATE CREATED AUTHOR AUTHOR'S ORGANIZ ATION 11/29/2023 [facility] DATE CREATED AUTHOR AUTHOR'S ORGANIZ ATION 12/01/2023 [facility] [employer] FOR RECORDS PERTAINING TO [...] BE BASED ON THE PRIMARY CLINICAL RECORDS. [employer] [facility]. provides no warranty or guarantee of the accuracy or completeness of information in this document.
[2023-12-09 19:35] LABS: Glucometer 77 mg/dL (74-106)
[2023-12-09] MEDS: 0.9 % SODIUM CHLORIDE 1,000 ML 100 ML IV (21:32)
[2023-12-09] MEDS: PREGABALIN 100 MG CAPSULE 200 MG PO (21:33)
[2023-12-09] MEDS: TRAMADOL HCL 50 MG TABLET PO (21:33)
[2023-12-09] MEDS: METOPROLOL TARTRATE 100 MG TABLET 50 MG PO (21:33)
[2023-12-09] MEDS: TAMSULOSIN HCL 0.4 MG CAPSULE PO (21:33)
--- NOTE | 2023-12-10 00:47 | PC.NURSE ---
Reached out to hospitalist at this time for additional pain management
[2023-12-10] MEDS: MORPHINE SULFATE 2 MG/ML SYRINGE IV ×2 (02:45→08:57)
[2023-12-10 04:34] VITALS: BP 113/65; PULSE 84; TEMP 37.1; O2SAT 97
[2023-12-10 05:08] LABS: Basophils Absolute Auto 0.1 10^3/uL (0.0-0.1); Basophils Percent Auto 0.9 % (0.2-2.0); Eosinophils Absolute Auto 0.3 10^3/uL (0.0-0.7); Eosinophils Percent Auto 2.6 % (0.9-7.0); Hematocrit 34.2 % (42.0-54.0); Hemoglobin 10.5 g/dL (14.0-18.0); Immature Granulocytes Abs Auto 0.03 10^3/uL (0.00-0.03); Immature Granulocytes Pct Auto 0.3 % (0.0-0.5); Lymphocytes Absolute Auto 1.5 10^3/uL (1.2-3.8); Lymphocytes Percent Auto 15.8 % (20.5-60.0); Mean Corpuscular HGB Conc 30.7 g/dL (29.9-35.2); Mean Corpuscular Hemoglobin 25.1 pg (25.9-34.0); Mean Corpuscular Volume 81.6 fL (80.0-94.0); Mean Platelet Volume 10.2 fL (9.5-13.5); Monocytes Absolute Auto 1.2 10^3/uL (0.3-0.8); Monocytes Percent Auto 11.9 % (1.7-12.0); Neutrophils Absolute Auto 6.7 10^3/uL (1.4-6.5); Neutrophils Percent Auto 68.5 % (43.0-75.0); Platelet Count 240 10^3/uL (150-450); Red Blood Count 4.19 10^6/uL (4.70-6.10); Red Cell Distribution Width 17.7 % (11.0-15.0); White Blood Count 9.8 10^3/uL (4.0-11.0)
[2023-12-10 05:38] LABS: Alanine Aminotransferase 11 U/L (16-63); Albumin Globulin Ratio 0.7; Albumin Level 2.8 g/dL (3.4-5.0); Alkaline Phosphatase 119 U/L (46-116); Anion Gap 9.3; Aspartate Amino Transferase 10 U/L (15-37); BUN Creatinine Ratio 11.5; Bilirubin Total 0.4 mg/dL (0.2-1.0); Calcium 8.4 mg/dL (8.5-10.1); Chloride 101 mmol/L (98-107); Estimated GFR (African America 46 (>=60); Estimated GFR (Non-African Ame 38 (>=60); Globulin 3.9 g/dL; Glucose 113 mg/dL (74-106); Potassium 3.3 mmol/L (3.5-5.1); Sodium 134 mmol/L (136-145); Total Protein 6.7 g/dL (6.4-8.2)
[2023-12-10] MEDS: 0.9 % SODIUM CHLORIDE 1,000 ML 100 ML IV (06:21)
[2023-12-10] MEDS: TRAMADOL HCL 50 MG TABLET PO (06:21)
[2023-12-10] MEDS: OMEPRAZOLE 40 MG CAPSULE.DR PO (06:22)
[2023-12-10] MEDS: PREGABALIN 100 MG CAPSULE 200 MG PO (06:22)
[2023-12-10 08:00] VITALS: BP 121/77; PULSE 75; TEMP 36.9; O2SAT 98
[2023-12-10] MEDS: CLOPIDOGREL BISULFATE 75 MG TABLET PO (09:02)
[2023-12-10] MEDS: LOSARTAN POTASSIUM 50 MG TABLET 100 MG PO (09:03)
[2023-12-10] MEDS: ATORVASTATIN CALCIUM 40 MG TABLET 80 MG PO (09:03)
[2023-12-10] MEDS: METFORMIN HCL 500 MG TABLET 1000 MG PO (09:03)
[2023-12-10] MEDS: ASPIRIN 81 MG TABLET.DR PO (09:03)
[2023-12-10] MEDS: HYDROCHLOROTHIAZIDE 25 MG TABLET 12.5 MG PO (09:03)
[2023-12-10] MEDS: ISOSORBIDE MONONITRATE 30 MG TAB.ER.24H PO (09:03)
[2023-12-10] MEDS: AMITRIPTYLINE HCL 25 MG TABLET PO (09:03)
[2023-12-10] MEDS: SITAGLIPTIN PHOSPHATE 50 MG TABLET 100 MG PO (09:04)
[2023-12-10] MEDS: METOPROLOL TARTRATE 100 MG TABLET 50 MG PO (09:04)
[2023-12-10] MEDS: TAMSULOSIN HCL 0.4 MG CAPSULE PO (09:04)
[2023-12-10] MEDS: IPRATROPIUM BROMIDE 0.5 MG/2.5 ML VIAL.NEB IH (11:36)
[2023-12-10 11:38] VITALS: PULSE 71; O2SAT 100
[2023-12-10 12:13] LABS: Glucometer 190 mg/dL (74-106)
[2023-12-10 12:17] VITALS: BP 101/63; PULSE 74; TEMP 36.8; O2SAT 97
--- NOTE | 2023-12-10 13:56 | PM.HP ---
HPI H&P: HPI History of Present Illness Chief complaint: ROEL, LACTIC ACIDOSIS Narrative: 58 y/o male to ER with nausea and vomiting. [place] very shaky and broke out in sweat. Severe nausea and emesis. Mild abdominal pain. To ER and WBC normal. Labs showed ROEL and elevated lactate. UA and chest x-ray normal. CT abdomen normal. No sign of infection but appeared dehydrated and admitted. Started IV fluids. Significantly improved overnight. No further nausea or emesis. Tolerating liquids and ate breakfast. Afebrile and normal WBC. Opioid HPI Opioid Management Most Recent Pain and Opioid Data: Last Pain Scale 7 12/10/23 12:15 Last Pain Intensity 9 03/04/23 10:36 Last Pain Assessment 12/10/23 12:15 Last MAR Pain Assessment 12/10/23 10:09 Last ORT Total Score 0 12/09/23 18:16 Last ORT Risk Category Low Risk 12/09/23 18:16 Ur Phencyclidine Scrn Negative (NEGATIVE) 03/03/23 17:24 Review of Systems ROS Constitutional Reports: fatigue; Denies: fever or chills Cardiovascular Denies: chest pain, palpitations or edema Respiratory Denies: shortness of breath, cough or wheezing Gastrointestinal Reports: abdominal pain, nausea and vomiting; Denies: diarrhea Genitourinary Denies: painful urination [facility] Medical History (Updated 12/10/23 @ 09:56 by Darrell Navarrete MD) Post-op bleeding Acute pain of right hip ?M25.551 - Pain in right hip (ICD-10) Foot osteomyelitis ?M86.9 - Osteomyelitis, unspecified (ICD-10) Ulcer of right foot with necrosis of bone ?L97.514 - Non-pressure chronic ulcer of other part of right foot with necrosis of bone (ICD-10) Acute osteomyelitis of right foot ?M86.171 - Other acute osteomyelitis, right ankle and foot (ICD-10) Hypocalcemia ?E83.51 - Hypocalcemia (ICD-10) Hypomagnesemia ?E83.42 - Hypomagnesemia (ICD-10) Sepsis ?A41.9 - Sepsis, unspecified organism (ICD-10) Wound of foot ?S91.309A - Unspecified open wound, unspecified foot, initial encounter (ICD-10) Abscess of right foot ?L02.611 - Cutaneous abscess of right foot (ICD-10) 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 (ICD-10) Diabetic infection of right foot ?E11.628 - Type 2 diabetes mellitus with other skin complications (ICD-10) ?L08.9 - Local infection of the skin and subcutaneous tissue, unspecified (ICD-10) Puncture wound of right foot ?S91.331A - Puncture wound without foreign body, right foot, initial encounter (ICD-10) Cellulitis of foot, right ?L03.115 - Cellulitis of right lower limb (ICD-10) ROEL (acute kidney injury) ?N17.9 - Acute kidney failure, unspecified (ICD-10) Sepsis ?A41.9 - Sepsis, unspecified organism (ICD-10) CHF (congestive heart failure) ?I50.9 - Heart failure, unspecified (ICD-10) Migraine headache ?G43.909 - Migraine, unspecified, not intractable, without status migrainosus (ICD-10) Tobacco abuse ?Z72.0 - Tobacco use (ICD-10) Carpal tunnel syndrome ?G56.00 - Carpal tunnel syndrome, unspecified upper limb (ICD-10) Back pain ?M54.9 - Dorsalgia, unspecified (ICD-10) Arthritis ?M19.90 - Unspecified osteoarthritis, unspecified site (ICD-10) Restless leg ?G25.81 - Restless legs syndrome (ICD-10) GERD (gastroesophageal reflux disease) ?K21.9 - Gastro-esophageal reflux disease without esophagitis (ICD-10) High cholesterol ?E78.00 - Pure hypercholesterolemia, unspecified (ICD-10) Myocardial infarction ?I21.9 - Acute myocardial infarction, unspecified (ICD-10) BPH with obstruction/lower urinary tract symptoms ?N40.1 - Benign prostatic hyperplasia with lower urinary tract symptoms (ICD-10) ?N13.8 - Other obstructive and reflux uropathy (ICD-10) Dementia ?F03.90 - Unspecified dementia, unspecified severity, without behavioral disturbance, psychotic disturbance, mood disturbance, and anxiety (ICD-10) CKD stage 4 due to type 2 diabetes mellitus ?E11.22 - Type 2 diabetes mellitus with diabetic chronic kidney disease (ICD-10) ?N18.4 - Chronic kidney disease, stage 4 (severe) (ICD-10) Hyperlipidemia ?E78.5 - Hyperlipidemia, unspecified (ICD-10) Polyp of prostate with urinary obstruction ?N40.1 - Benign prostatic hyperplasia with lower urinary tract symptoms (ICD-10) ?N13.8 - Other obstructive and reflux uropathy (ICD-10) Femoral artery stenosis ?I70.209 - Unspecified atherosclerosis of [place] arteries of extremities, unspecified extremity (ICD-10) Glaucoma ?H40.9 - Unspecified glaucoma (ICD-10) Carpal tunnel syndrome, bilateral ?G56.03 - Carpal tunnel syndrome, bilateral upper limbs (ICD-10) Gout ?M10.9 - Gout, unspecified (ICD-10) Neuropathy ?G62.9 - Polyneuropathy, unspecified (ICD-10) Chronic kidney disease ?N18.9 - Chronic kidney disease, unspecified (ICD-10) Weakness ?R53.1 - Weakness (ICD-10) Surgical History (Updated 09/15/23 @ 10:12 by Shana George NP) H/O foot surgery (08/10/23) ?Z98.890 - Other specified postprocedural states (ICD-10) S/P TURP (04/13/23) ?Z90.79 - Acquired absence of other genital organ(s) (ICD-10) H/O foot surgery (08/05/23) ?Z98.890 - Other specified postprocedural states (ICD-10) History of heart artery stent ?Z95.5 - Presence of coronary angioplasty implant and graft (ICD-10) History of spinal surgery ?Z98.890 - Other specified postprocedural states (ICD-10) History of colonoscopy ?Z98.890 - Other specified postprocedural states (ICD-10) History of carpal tunnel release ?Z98.890 - Other specified postprocedural states (ICD-10) History of cataract extraction ?Z98.49 - Cataract extraction status, unspecified eye (ICD-10) History of appendectomy ?Z90.49 - Acquired absence of other specified parts of digestive tract (ICD-10) History of heart artery stent ?Z95.5 - Presence of coronary angioplasty implant and graft (ICD-10) Family History (Updated 03/03/23 @ 18:46 by Darling Sharma RN) Mother Family history of CHF (congestive heart failure) Family history of diabetes mellitus Family history of hypertension Grandfather Family history of CHF (congestive heart failure) Family history of diabetes mellitus Family history of hypertension Family history of myocardial infarction Grandmother Family history of hypertension Social History (Updated 12/09/23 @ 17:38 by Marybel Stevens LPN) Within the past year, how often did you have a drink containing alcohol: never Score interpretation: A score less than 4 is consistent with normal alcohol consumption. Smoking status: Current every day smoker What tobacco products do you use: cigarettes Cigarettes per day: 20 Years smoked: 42 Smoking pack-years: 42.00 Non-prescribed substance use: denies use Previous occupational history: DISABLED Highest level of school completed/degree received: Associate degree: occupational, technical, vocational program In a typical week, how many times do you talk on the telephone with family, friends, or neighbors: never How often do you get together with friends or relatives: never Do you belong to any clubs or organizations such as islam groups unions, [employer] or athletic groups, or school groups: no Little interest or pleasure in doing things: not at all Feeling down, depressed, or hopeless: not at all Do you think of yourself as: straight/heterosexual Gender Identity: male Meds Home Medications and Allergies Home Medications ?Medication ?Instructions ?Recorded ?Confirmed ?Type empagliflozin 10 mg tablet 10 mg PO DAILY 03/03/23 12/10/23 History (Jardiance) metformin 1,000 mg tablet 1,000 mg PO BID 03/03/23 12/10/23 History nitroglycerin 0.4 mg sublingual 0.4 mg sublingual Q5M PRN chest 03/03/23 12/09/23 History tablet pain omeprazole 40 mg capsule,delayed 40 mg PO DAILY 03/03/23 12/09/23 History release pregabalin 200 mg capsule 200 mg PO TID 03/03/23 12/09/23 History fremanezumab-vfrm 225 mg/1.5 mL 225 mg subcut .QMonth 08/03/23 12/09/23 History subcutaneous auto-injector (Ajovy) isosorbide mononitrate 30 mg 30 mg PO DAILY 08/03/23 12/09/23 History tablet,extended release 24 hr albuterol sulfate 90 mcg/actuation 2 inh inhalation Q8H PRN shortness 12/09/23 12/09/23 History aerosol inhaler (Proventil HFA) of breath or wheezing aspirin 81 mg tablet,delayed 81 mg PO DAILY 12/09/23 12/09/23 History release atorvastatin 80 mg tablet 80 mg PO DAILY 12/09/23 12/09/23 History clopidogrel 75 mg tablet 75 mg PO DAILY 12/09/23 12/09/23 History dulaglutide 0.75 mg/0.5 mL 0.75 mg subcut QWEEK 12/09/23 12/09/23 History subcutaneous pen injector (Trulicity) metoprolol tartrate 100 mg tablet 50 mg PO BID 12/09/23 12/09/23 History rimegepant 75 mg disintegrating 75 mg PO Q2H PRN migraine headache 12/09/23 12/10/23 History tablet (Nurtec ODT) sildenafil 100 mg tablet 100 mg PO Q24H PRN erectile 12/09/23 12/09/23 History dysfunction sitagliptin phosphate 100 mg 100 mg PO DAILY 12/09/23 12/09/23 History tablet (Januvia) tamsulosin 0.4 mg capsule 0.4 mg PO BID 12/09/23 12/09/23 History tiotropium bromide 1.25 2 inh inhalation QAM 12/09/23 12/09/23 History mcg/actuation mist for inhalation (Spiriva Respimat) tramadol 50 mg tablet 50 mg PO Q8H 12/09/23 12/09/23 History valsartan 160 1 tab PO DAILY 12/09/23 12/09/23 History mg-hydrochlorothiazide 12.5 mg tablet (Diovan HCT) amitriptyline 25 mg tablet 25 mg PO DAILY 12/10/23 12/10/23 History budesonide-formoterol HFA 160 2 inh inhalation BID 12/10/23 12/10/23 History mcg-4.5 mcg/actuation aerosol inhaler (Symbicort) furosemide 40 mg tablet (Lasix) 40 mg PO DAILY 12/10/23 12/10/23 History glimepiride 2 mg tablet 2 mg PO BIDWM 12/10/23 12/10/23 History ropinirole 1 mg tablet 1 mg PO TID 12/10/23 12/10/23 History Allergies Allergy/AdvReac Type Severity Reaction Status Date / Time Penicillins Allergy Severe Swelling Verified 11/15/23 06:06 of Lip/Tongue/Throat bee venom protein (honey bee) Allergy Swelling Verified 11/15/23 06:06 of Lip/Tongue/Throat latex Allergy Rash Verified 11/15/23 06:06 Exam Constitutional Vital Signs, click to edit/add: Last Vital Signs Temp 98.2 F 12/10/23 12:17 Pulse 74 12/10/23 12:17 Resp 16 12/10/23 12:17 BP 101/63 12/10/23 12:17 Pulse Ox 97 12/10/23 12:17 O2 Del Method Room Air 12/10/23 12:17 Documenting provider has reviewed patient's vital signs: yes Common normals: no apparent distress, oriented x3 and alert HENMT Common normals: normocephalic Eye Common normals: PERRL and EOMs intact bilaterally Respiratory Common normals: normal respiratory effort and clear to auscultation bilaterally Cardio Common normals: regular rate, regular rhythm, no gallops, no murmurs and no rub GI Common normals: Normal to inspection, nondistended, normoactive bowel sounds present and non-tender Extremity Common normals: no pedal edema Results Labs Labs: Short CBC 12/10/23 Range/Units 04:52 WBC 9.8 (4.0-11.0) 10^3/uL Hgb 10.5 L (14.0-18.0) g/dL Hct 34.2 L (42.0-54.0) % Plt Count 240 (150-450) 10^3/uL BMP 12/10/23 04:52 Sodium 134 L Potassium 3.3 L Chloride 101 Carbon Dioxide 27.0 BUN 21.0 H Creatinine 1.83 H Glucose 113 H Calcium 8.4 L Liver Function 12/10/23 Range/Units 04:52 Total Bilirubin 0.4 (0.2-1.0) mg/dL AST 10 L (15-37) U/L ALT 11 L (16-63) U/L Alkaline Phosphatase 119 H (46-116) U/L Albumin 2.8 L (3.4-5.0) g/dL Urine 12/09/23 Range/Units 14:30 Urine Color Yellow (YELLOW) Urine Clarity Clear (CLEAR) Urine pH 6.5 (5.0-9.0) Ur Specific [place] 1.020 (1.005-1.025) Urine Protein Negative (NEG/TRACE) mg/dL Urine Glucose (UA) 500 A (NEGATIVE) mg/dL Assessment and Plan Assessment and Plan (1) Dehydration: (2) ROEL (acute kidney injury): (3) Intractable nausea: (4) Acidosis, lactic: (5) DM2 (diabetes mellitus, type 2): (6) Hypertension: (7) COPD (chronic obstructive pulmonary disease): (8) Coronary artery disease: (9) Chronic ulcer of right foot: (10) CKD stage 3b, GFR 30-44 ml/min: Plan Presented with nausea and vomiting of unclear etiology. Symptoms improved and responded well to IV fluids. Tolerating oral intake and labs improved. Feels well and discharge home. Resume home medication without change. Follow with podiatry as scheduled. Follow up with PCP in 1-2 weeks.
--- NOTE | 2023-12-11 14:05 | CM.DCFOLLOWU ---
Person spoke with: pt's How are you feeling? still having pain How is your pain? still having pain, but is bearable Did you understand your discharge instructions? yes Do you have any questions about your discharge instructions? no Were you given any prescriptions at discharge? no Were you able to get your prescriptions filled? N/A Do you understand how to take your medications as ordered? yes Do you have any questions about your follow up appointment and do you plan to keep your follow up appointment? follow up with Curt scheduled, will schedule follow up with PCP Is there anything else that you would like to discuss? no Questions/Comments/Concerns/Other: none
== END 2023-12-10 12:48 | disposition home health service (06) ==
LOC: ER 16:57 → MS 18:12
PROVIDERS: Admitting Provider Family Medicine; Emergency Provider Emergency Medicine; PCP Family Medicine; Visit Provider Family Medicine
DX: E86.0 Dehydration (principal); N17.9 Acute kidney failure, unspecified; R11.0 Nausea; E87.20 Acidosis, unspecified; J44.9 Chronic obstructive pulmonary disease, unspecified; I25.10 Atherosclerotic heart disease of native coronary artery without angina pectoris; E11.22 Type 2 diabetes mellitus with diabetic chronic kidney disease; I12.9 Hypertensive chronic kidney disease with stage 1 through stage 4 chronic kidney disease, or unspecified chronic kidney disease; N18.32 Chronic kidney disease, stage 3b; L97.919 Non-pressure chronic ulcer of unspecified part of right lower leg with unspecified severity; Z79.84 Long term (current) use of oral hypoglycemic drugs; F17.210 Nicotine dependence, cigarettes, uncomplicated; Z89.431 Acquired absence of right foot
CPT/HCPCS: 36415; 71045; 74176; 80053; 81003; 82948; 83605; 83735; 84484; 85025; 85378; 87811; 93005; 94640; 96361; 96365; 96375; 96376; 99285; 99406; G0378; J2270; J2405; J3475

== ENCOUNTER 2023-12-12 15:42 | Outpatient (OUT) | payer OTHER, SELFPAY | END 2023-12-12 15:43 | disposition home or self-care (01) | LOC: WC 15:42 | PROVIDERS: PCP Family Medicine; Visit Provider Podiatrist Foot & Ankle Surgery | DX: T87.89 Other complications of amputation stump (principal) | CPT/HCPCS: 11043 ==

== ENCOUNTER 2023-12-13 11:30 | Outpatient (OUT) | payer OTHER, SELFPAY | END 2023-12-13 11:31 | disposition home or self-care (01) | LOC: PST 11:30 | PROVIDERS: PCP Family Medicine; Visit Provider Podiatrist Foot & Ankle Surgery | DX: Z01.818 Encounter for other preprocedural examination (principal); T87.81 Dehiscence of amputation stump; T81.31XA Disruption of external operation (surgical) wound, not elsewhere classified, initial encounter ==

== ENCOUNTER 2023-12-15 06:26 | Day surgery (SDC) | payer OTHER, SELFPAY ==
[2023-12-15 06:30] VITALS: BP 88/60; PULSE 132; TEMP 36.2; O2SAT 100; BMI 25.2
[2023-12-15 06:47] LABS: Glucometer 169 mg/dL (74-106)
[2023-12-15] MEDS: LACTATED RINGER'S SOLUTION 1,000 ML 50 ML IV ×2 (07:01→09:15)
[2023-12-15] MEDS: VANCOMYCIN HCL 1,000 MG in 0.9 % SODIUM CHLORIDE 250 ML 250 MG IV (07:24)
[2023-12-15] MEDS: BUPIVACAINE HCL 0.5% PF 50 MG/10 ML VIAL INJ (08:00)
[2023-12-15] MEDS: THROMBIN (RECOMBINANT) TOPICAL 5,000 UNIT/5 ML VIAL 10000 UNIT TOPICAL (09:04)
[2023-12-15] MEDS: SURGIFOAM GEL SPONGE SIZE 100 1 EACH TOPICAL (09:07)
--- NOTE | 2023-12-15 09:16 | PM.ORONB ---
Brief Operative Note Date of procedure: 12/15/23 Pre-op diagnosis general: Right foot osteomyelitis, diabetic foot ulcer with bone necrosis, status post transmetatarsal amputation now with surgical dehiscence, type 2 diabetes with peripheral neuropathy and foot ulcer Post-op diagnosis: same as pre-op Procedure: Procedures performed: Revision of right transmetatarsal amputation with application of external tissue vibrator equipment tester and short leg splint Indications for procedure: Patient is a 58-year-old male with multiple medical comorbidities who I was first introduced to in August of this year from when he sustained a puncture wound in his right forefoot. He required I&D of an abscess on 08/10/2023 and ultimately went on to a staged transmetatarsal amputation with the final stage being performed on 10/05/2023. He was recently seen in our wound center by Dr. Ellsworth who noted worsening dehiscence of his surgical incision but also a pressure wound from his dorsal hindfoot/anterior ankle secondary to an Omero wrap being placed too tight. Today in the preoperative holding area he has been comfortable and denies local and systemic signs of infection. We discussed the potential risks and benefits of surgical debridement and the above procedures and patient would like to proceed with surgery. Intraoperative findings: Full-thickness wound noted on the distal stump over dehisced incision but also a full-thickness wound noted on the dorsal midfoot extending to the anterior ankle. No acute signs of infection but significant amount of fibrotic tissue and eschar. Wound did communicate down to the first metatarsal and bone quality was Somewhat soft but normal color. Preoperative wound measurements 15.8 x 15.2 x 2.5 cm. Procedure in detail: Patient was identified preoperative holding by myself which time correct side and site were marked and consent was obtained. Patient was brought back to the operating theater placed on table in supine position IV sedation was performed and the right lower extremities prepped and draped in usual sterile fashion. Formal timeout was performed. With attention to the wound on the right foot the wound was excisionally debrided with a scalpel and forceps then further debrided with a Versajet until only healthy viable soft tissue was noted. Further due to exposure of the first metatarsal decision was made to revise the transmetatarsal amputation which was done so with a sagittal saw shortening his metatarsals by 1 to 2 cm each. The resected bone was sent to pathology for analysis. Surgical site was irrigated with copious saline and hemostasis was controlled on the field with Maria M powder, Gelfoam and a temporary pressure dressing. Once hemostasis was controlled the distal stump incision was then closed with skin suture loosely and without skin tension however the wound that extended up his medial column was not able to be closed and due to his significant amount of oozing I decided not to put a wound VAC on alternatively used a soft tissue vibrator equipment tester. Using the Dermaclose device The 6 anchors were placed on the periphery of the medial wound aspect 3 on the dorsal and 3 on the plantar sides and were held in place by toshia. Then the tensioning device was employed accordingly which significantly decreased the wound size however full closure was not able to be obtained therefore was packed open with sterile gauze packing. Then a nonadherent dry sterile dressing was applied. Then multiple layers of cast padding were applied from the forefoot to the popliteal fossa followed by a loose layer of Omero wrap's and additional layers of cast padding then a plaster posterior splint was applied and held in place by an additional layer of Omero wrap's. Patient tolerated the procedure and anesthesia well was transferred to the recovery room with vital signs stable. Postoperative plan: Discharged home under family's care. Nonweightbearing to the right lower extremity. Follow-up in 3 to 5 days for dressing change Plan is to keep the soft tissue vibrator equipment tester in place for 2 to 3 weeks then we may consider converting him to a wound VAC. Anesthesia: [facility] Surgeon: Fredy Elias Mail Handler Assistant: Franklin Trejo Estimated blood loss (mL): 100 Tourniquet time (min): 0 Pathology: other (bone from metatarsals) Condition: stable Disposition: PACU
[2023-12-15 09:47] VITALS: BP 93/68; PULSE 114; TEMP 37.2; O2SAT 100
--- NOTE | 2023-12-15 09:53 | XR_ITS ---
The [address] [address] Patient Name: MYRA FELIPE MRN: [id number] date: 1965 Sex: M Assigned Patient Location: [facility] Current Patient Location: Accession/Order Number: [id number] Exam Date: 12/15/2023 10:05 Report Date: 12/15/2023 15:22 At the request of: DUARTE MORALES Procedure: XR foot RT min 3V PROCEDURE: XR foot RT min 3V COMPARISON: 11/15/2023 HISTORY: postop xr pacu FINDINGS: BONES:Interval revision of the forefoot amputation now at the base of the first through fifth metatarsals. There is permanent pattern of the bones with cortical thinning consistent with osteopenia. No acute fracture, dislocation or lytic change. Enthesopathic spurring of the calcaneus SOFT TISSUES:Soft tissue swelling. Multiple surgical anchors EFFUSION:None visible. OTHER: Negative. XR/XR foot RT min 3V IMPRESSION: Revision of forefoot amputation Electronically authenticated by: EVAN HODGES Date: 12/15/2023 15:22
[2023-12-15 09:55] LABS: Glucometer 171 mg/dL (74-106)
[2023-12-15 10:02] VITALS: BP 88/62; PULSE 110; O2SAT 100
[2023-12-15 10:17] VITALS: BP 93/68; PULSE 115; O2SAT 100
== END 2023-12-15 10:30 | disposition home or self-care (01) ==
PROVIDERS: PCP Family Medicine; Visit Provider Podiatrist Foot & Ankle Surgery
PROC: (CPT 400; principal; 2023-12-15 07:30)
DX: T87.81 Dehiscence of amputation stump (principal); F17.210 Nicotine dependence, cigarettes, uncomplicated; Z79.84 Long term (current) use of oral hypoglycemic drugs; Z79.85 Long-term (current) use of injectable non-insulin antidiabetic drugs; J44.9 Chronic obstructive pulmonary disease, unspecified; E78.5 Hyperlipidemia, unspecified; I25.10 Atherosclerotic heart disease of native coronary artery without angina pectoris; I25.2 Old myocardial infarction; Z95.5 Presence of coronary angioplasty implant and graft; K21.9 Gastro-esophageal reflux disease without esophagitis; N18.4 Chronic kidney disease, stage 4 (severe); I12.9 Hypertensive chronic kidney disease with stage 1 through stage 4 chronic kidney disease, or unspecified chronic kidney disease; N40.0 Benign prostatic hyperplasia without lower urinary tract symptoms; E11.40 Type 2 diabetes mellitus with diabetic neuropathy, unspecified; E11.319 Type 2 diabetes mellitus with unspecified diabetic retinopathy without macular edema; E11.69 Type 2 diabetes mellitus with other specified complication; M86.8X7 Other osteomyelitis, ankle and foot; E11.621 Type 2 diabetes mellitus with foot ulcer; L97.514 Non-pressure chronic ulcer of other part of right foot with necrosis of bone
CPT/HCPCS: 11960; 28805; 36415; 73630; 82948; 88305; 88311; J0131; J0665; J1100; J2250; J2371; J2704; J3010; J3370

== ENCOUNTER 2023-12-19 08:56 | Outpatient (OUT) | payer OTHER, MEDICAID, SELFPAY | END 2023-12-19 08:57 | disposition home or self-care (01) | LOC: WC 08:56 | PROVIDERS: PCP Family Medicine; Visit Provider Podiatrist Foot & Ankle Surgery | DX: T87.89 Other complications of amputation stump (principal) | CPT/HCPCS: G0463 ==

== ENCOUNTER 2023-12-21 19:36 | Inpatient (IN) | payer OTHER, SELFPAY ==
[2023-12-21] VITALS (23 sets, daily range): BP systolic 90–133; BP diastolic 49–69; PULSE 90–108; TEMP 36.6–36.7; O2SAT 97–100; BMI 28.2; BMI 27.1
--- NOTE | 2023-12-21 19:41 | ECG_ITS ---
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
--- NOTE | 2023-12-21 19:44 | ED_ITS ---
HPI HPI - General Adult General Chief complaint: Shortness of Breath/Dyspnea Stated complaint: DIFF BREATHING Time Seen by Provider: 12/21/23 19:41 Source: patient and EMR Mode of arrival: ambulance History of Present Illness HPI narrative: Patient is a 58-year-old male who presents to the emergency department by EMS for low blood pressure and generalized weakness. Patient states for the last 3 days he has had a sensation of feeling dizzy, weak with increased shortness of breath and chest tightness. He has a longstanding history of coronary artery disease, peripheral vascular disease, COPD. He is a regular smoker. He states for the last 2 months he has had a wound to his right foot. He had a transmetatarsal amputation and toe amputation from the right foot and currently has an open wound that is being managed by podiatry. He states several weeks ago he had a vessel bypass and stenting done to the right thigh by vascular surgery in [place]. He has 4 stents in his heart. He states the right leg has been doing well with no complications. He has had no fevers or significant upper respiratory symptoms. EMS reports that the patient was hypotensive on their arrival at 80/50. On blood pressure recheck, his systolic blood pressure had improved so EMS did not give any fluids. He currently takes aspirin and Plavix daily. He denies any recent medication adjustments. He states he feels more short of breath in the last 3 days and feels pressure in his chest. No neck or back pain. No abdominal pain Related Data Home Medications ?Medication ?Instructions ?Recorded ?Confirmed empagliflozin 10 mg tablet 10 mg PO DAILY 03/03/23 12/21/23 (Jardiance) metformin 1,000 mg tablet 1,000 mg PO BID 03/03/23 12/21/23 nitroglycerin 0.4 mg sublingual 0.4 mg sublingual Q5M PRN chest 03/03/23 12/21/23 tablet pain omeprazole 40 mg capsule,delayed 40 mg PO DAILY 03/03/23 12/21/23 release pregabalin 200 mg capsule 200 mg PO TID 03/03/23 12/21/23 fremanezumab-vfrm 225 mg/1.5 mL 225 mg subcut .QMonth 08/03/23 12/21/23 subcutaneous auto-injector (Ajovy) isosorbide mononitrate 30 mg 30 mg PO DAILY 08/03/23 12/21/23 tablet,extended release 24 hr albuterol sulfate 90 mcg/actuation 2 inh inhalation Q8H PRN shortness 12/09/23 12/21/23 aerosol inhaler (Proventil HFA) of breath or wheezing aspirin 81 mg tablet,delayed 81 mg PO DAILY 12/09/23 12/21/23 release atorvastatin 80 mg tablet 80 mg PO DAILY 12/09/23 12/21/23 clopidogrel 75 mg tablet 75 mg PO DAILY 12/09/23 12/21/23 dulaglutide 0.75 mg/0.5 mL 0.75 mg subcut QWEEK 12/09/23 12/21/23 subcutaneous pen injector (Trulicity) metoprolol tartrate 100 mg tablet 50 mg PO BID 12/09/23 12/21/23 rimegepant 75 mg disintegrating 75 mg PO Q2H PRN migraine headache 12/09/23 12/21/23 tablet (Nurtec ODT) sildenafil 100 mg tablet 100 mg PO Q24H PRN erectile 12/09/23 12/21/23 dysfunction sitagliptin phosphate 100 mg 100 mg PO DAILY 12/09/23 12/21/23 tablet (Januvia) tamsulosin 0.4 mg capsule 0.4 mg PO BID 12/09/23 12/21/23 tiotropium bromide 1.25 2 inh inhalation QAM 12/09/23 12/21/23 mcg/actuation mist for inhalation (Spiriva Respimat) valsartan 160 1 tab PO DAILY 12/09/23 12/21/23 mg-hydrochlorothiazide 12.5 mg tablet (Diovan HCT) amitriptyline 25 mg tablet 25 mg PO DAILY 12/10/23 12/21/23 budesonide-formoterol HFA 160 2 inh inhalation BID 12/10/23 12/21/23 mcg-4.5 mcg/actuation aerosol inhaler (Symbicort) furosemide 40 mg tablet (Lasix) 40 mg PO DAILY 12/10/23 12/21/23 glimepiride 2 mg tablet 2 mg PO BIDWM 12/10/23 12/21/23 ropinirole 1 mg tablet 1 mg PO TID 12/10/23 12/21/23 Previous Rx's ?Medication ?Instructions ?Recorded doxycycline hyclate 50 mg capsule 50 mg PO BID 7 days #14 caps 12/15/23 Allergies Allergy/AdvReac Type Severity Reaction Status Date / Time Penicillins Allergy Severe Swelling Verified 12/21/23 19:44 of Lip/Tongue/Throat bee venom protein (honey bee) Allergy Swelling Verified 12/21/23 19:44 of Lip/Tongue/Throat latex Allergy Rash Verified 12/21/23 19:44 Opioid HPI Opioid Management Most Recent Opioid Data: Last Pain Scale 8 12/21/23 20:39 Last Pain Intensity 9 03/04/23 10:36 Last Pain Assessment 12/22/23 06:00 Last ORT Total Score 0 12/21/23 23:25 Last ORT Risk Category Low Risk 12/21/23 23:25 Ur Phencyclidine Scrn Negative (NEGATIVE) 03/03/23 17:24 PFSH PFSH Medical History (Updated 12/21/23 @ 21:29 by CARSON Blackman) CKD stage 3b, GFR 30-44 ml/min ?N18.32 - Chronic kidney disease, stage 3b (ICD-10) Chronic ulcer of right foot ?L97.519 - Non-pressure chronic ulcer of other part of right foot with unspecified severity (ICD-10) DM2 (diabetes mellitus, type 2) ?E11.9 - Type 2 diabetes mellitus without complications (ICD-10) Coronary artery disease ?I25.10 - Atherosclerotic heart disease of [place] coronary artery without angina pectoris (ICD-10) COPD (chronic obstructive pulmonary disease) ?J44.9 - Chronic obstructive pulmonary disease, unspecified (ICD-10) Hypertension ?I10 - Essential (primary) hypertension (ICD-10) Post-op bleeding Acute pain of right hip ?M25.551 - Pain in right hip (ICD-10) Foot osteomyelitis ?M86.9 - Osteomyelitis, unspecified (ICD-10) Ulcer of right foot with necrosis of bone ?L97.514 - Non-pressure chronic ulcer of other part of right foot with necrosis of bone (ICD-10) Acute osteomyelitis of right foot ?M86.171 - Other acute osteomyelitis, right ankle and foot (ICD-10) Hypocalcemia ?E83.51 - Hypocalcemia (ICD-10) Hypomagnesemia ?E83.42 - Hypomagnesemia (ICD-10) Sepsis ?A41.9 - Sepsis, unspecified organism (ICD-10) Wound of foot ?S91.309A - Unspecified open wound, unspecified foot, initial encounter (ICD- 10) Abscess of right foot ?L02.611 - Cutaneous abscess of right foot (ICD-10) Anticoagulated ?Z79.01 - care home (current) use of anticoagulants (ICD-10) Diabetic infection of right foot ?E11.628 - Type 2 diabetes mellitus with other skin complications (ICD-10) ?L08.9 - Local infection of the skin and subcutaneous tissue, unspecified (ICD-10) Puncture wound of right foot ?S91.331A - Puncture wound without foreign body, right foot, initial encounter (ICD-10) Cellulitis of foot, right ?L03.115 - Cellulitis of right lower limb (ICD-10) ROEL (acute kidney injury) ?N17.9 - Acute kidney failure, unspecified (ICD-10) Sepsis ?A41.9 - Sepsis, unspecified organism (ICD-10) CHF (congestive heart failure) ?I50.9 - Heart failure, unspecified (ICD-10) Migraine headache ?G43.909 - Migraine, unspecified, not intractable, without status migrainosus (ICD-10) Tobacco abuse ?Z72.0 - Tobacco use (ICD-10) Carpal tunnel syndrome ?G56.00 - Carpal tunnel syndrome, unspecified upper limb (ICD-10) Back pain ?M54.9 - Dorsalgia, unspecified (ICD-10) Arthritis ?M19.90 - Unspecified osteoarthritis, unspecified site (ICD-10) Restless leg ?G25.81 - Restless legs syndrome (ICD-10) GERD (gastroesophageal reflux disease) ?K21.9 - Gastro-esophageal reflux disease without esophagitis (ICD-10) High cholesterol ?E78.00 - Pure hypercholesterolemia, unspecified (ICD-10) Myocardial infarction ?I21.9 - Acute myocardial infarction, unspecified (ICD-10) BPH with obstruction/lower urinary tract symptoms ?N40.1 - Benign prostatic hyperplasia with lower urinary tract symptoms (ICD- 10) ?N13.8 - Other obstructive and reflux uropathy (ICD-10) Dementia ?F03.90 - Unspecified dementia, unspecified severity, without behavioral disturbance, psychotic disturbance, mood disturbance, and anxiety (ICD-10) CKD stage 4 due to type 2 diabetes mellitus ?E11.22 - Type 2 diabetes mellitus with diabetic chronic kidney disease (ICD- 10) ?N18.4 - Chronic kidney disease, stage 4 (severe) (ICD-10) Hyperlipidemia ?E78.5 - Hyperlipidemia, unspecified (ICD-10) Polyp of prostate with urinary obstruction ?N40.1 - Benign prostatic hyperplasia with lower urinary tract symptoms (ICD- 10) ?N13.8 - Other obstructive and reflux uropathy (ICD-10) Femoral artery stenosis ?I70.209 - Unspecified atherosclerosis of [place] arteries of extremities, unspecified extremity (ICD-10) Glaucoma ?H40.9 - Unspecified glaucoma (ICD-10) Carpal tunnel syndrome, bilateral ?G56.03 - Carpal tunnel syndrome, bilateral upper limbs (ICD-10) Gout ?M10.9 - Gout, unspecified (ICD-10) Neuropathy ?G62.9 - Polyneuropathy, unspecified (ICD-10) Chronic kidney disease ?N18.9 - Chronic kidney disease, unspecified (ICD-10) Weakness ?R53.1 - Weakness (ICD-10) Surgical History (Updated 09/15/23 @ 10:12 by Shana George NP) H/O foot surgery (08/10/23) ?Z98.890 - Other specified postprocedural states (ICD-10) S/P TURP (04/13/23) ?Z90.79 - Acquired absence of other genital organ(s) (ICD-10) H/O foot surgery (08/05/23) ?Z98.890 - Other specified postprocedural states (ICD-10) History of heart artery stent ?Z95.5 - Presence of coronary angioplasty implant and graft (ICD-10) History of spinal surgery ?Z98.890 - Other specified postprocedural states (ICD-10) History of colonoscopy ?Z98.890 - Other specified postprocedural states (ICD-10) History of carpal tunnel release ?Z98.890 - Other specified postprocedural states (ICD-10) History of cataract extraction ?Z98.49 - Cataract extraction status, unspecified eye (ICD-10) History of appendectomy ?Z90.49 - Acquired absence of other specified parts of digestive tract (ICD- 10) History of heart artery stent ?Z95.5 - Presence of coronary angioplasty implant and graft (ICD-10) Family History (Updated 03/03/23 @ 18:46 by Darling Sharma RN) Mother Family history of CHF (congestive heart failure) Family history of diabetes mellitus Family history of hypertension Grandfather Family history of CHF (congestive heart failure) Family history of diabetes mellitus Family history of hypertension Family history of myocardial infarction Grandmother Family history of hypertension Social History (Updated 12/09/23 @ 17:38 by Marybel Stevens LPN) Within the past year, how often did you have a drink containing alcohol: never Score interpretation: A score less than 4 is consistent with normal alcohol consumption. Smoking status: Current every day smoker What tobacco products do you use: cigarettes Cigarettes per day: 20 Years smoked: 42 Smoking pack-years: 42.00 Non-prescribed substance use: denies use Previous occupational history: DISABLED Highest level of school completed/degree received: Associate degree: occupational, technical, vocational program In a typical week, how many times do you talk on the telephone with family, friends, or neighbors: never How often do you get together with friends or relatives: never Do you belong to any clubs or organizations such as christianity groups unions, [employer] or athletic groups, or school groups: no Little interest or pleasure in doing things: not at all Feeling down, depressed, or hopeless: not at all Do you think of yourself as: straight/heterosexual Gender Identity: male Exam Constitutional Vital Signs, click to edit/add: Last Vital Signs Temp 97.8 F 12/22/23 06:00 Pulse 107 H 12/22/23 06:00 Resp 16 12/22/23 06:00 BP 110/61 12/22/23 06:00 Pulse Ox 96 12/22/23 06:00 O2 Del Method Room Air 12/22/23 06:00 Course Vital Signs Vital signs: Vital Signs Temperature 98.0 F 12/21/23 19:38 Pulse Rate 97 H 12/21/23 19:38 Respiratory Rate 17 12/21/23 19:38 Blood Pressure 99/49 12/21/23 19:38 Pulse Oximetry 100 12/21/23 19:38 Oxygen Delivery Method Room Air 12/21/23 19:38 Temperature 97.8 F 12/22/23 06:00 Pulse Rate 107 H 12/22/23 06:00 Respiratory Rate 16 12/22/23 06:00 Blood Pressure 110/61 12/22/23 06:00 Pulse Oximetry 96 12/22/23 06:00 Oxygen Delivery Method Room Air 12/22/23 06:00 Medical Decision Making MDM Narrative Medical decision making narrative: On arrival to the emergency department, the patient had a blood pressure of 99/40. He is awake and alert. He was given IV fluids, fentanyl and Zofran for chest discomfort to avoid nitroglycerin. Solu-Medrol and breathing treatment given in the ER as well. Laboratory studies reviewed and noted showing the patient has acute kidney injury with normal troponin and BNP. He is not a candidate for CT angio of the chest based on his renal function. Chest x-ray was obtained. Patient with a normal EKG at this time. Blood pressure on reevaluation is 113/68. Patient was noted to have blood sugar on lab studies of 56 and was given juice in the ER for low blood sugar. Discussed with the hospitalist service, patient will be admitted for acute kidney injury, dehydration, COPD exacerbation. Repeat troponin is pending prior to the patient going up to the floor but we plan for admission for inpatient, telemetry. Patient is stable at time of admission with improved blood pressure and stable vital signs. SUPERVISED APC VISIT, PHYSICIAN ATTESTATION: Based on the medical record the care appears appropriate. ? Medical Records Medical records reviewed: Yes I reviewed the patient's medical records Lab Data Lab results reviewed: Yes I reviewed the patient's lab results Labs: Lab Results 12/21/23 12/21/23 12/21/23 Range/Units 19:45 19:50 21:40 WBC 12.6 H (4.0-11.0) 10^3/uL RBC 3.48 L (4.70-6.10) 10^6/uL Hgb 8.6 L (14.0-18.0) g/dL Hct 28.2 L (42.0-54.0) % MCV 81.0 (80.0-94.0) fL MCH 24.7 L (25.9-34.0) pg MCHC 30.5 (29.9-35.2) g/dL RDW 16.6 H (11.0-15.0) % Plt Count 502 H (150-450) 10^3/uL MPV 10.2 (9.5-13.5) fL Neut % (Auto) 62.5 (43.0-75.0) % Lymph % (Auto) 26.6 (20.5-60.0) % Stanley % (Auto) 4.9 (1.7-12.0) % Eos % (Auto) 4.2 (0.9-7.0) % Baso % (Auto) 0.8 (0.2-2.0) % Neut # (Auto) 7.9 H (1.4-6.5) 10^3/uL Lymph # (Auto) 3.4 (1.2-3.8) 10^3/uL Stanley # (Auto) 0.6 (0.3-0.8) 10^3/uL Eos # (Auto) 0.5 (0.0-0.7) 10^3/uL Baso # (Auto) 0.1 (0.0-0.1) 10^3/uL Abs Immat Gran (auto) 0.13 H (0.00-0.03) 10^3/uL Imm/Tot Granulo (auto) 1.0 H (0.0-0.5) % PT 11.1 (9.0-11.6) sec INR 1.05 APTT 26.6 (22.3-36.2) sec VBG pH 7.448 H (7.330-7.430) VBG pCO2 39.8 L (40.0-52.0) mmHg Sodium 138 (136-145) mmol/L Potassium 3.3 L (3.5-5.1) mmol/L Chloride 99 (98-107) mmol/L Carbon Dioxide 29.9 (21.0-32.0) mmol/L Anion Gap 12.4 BUN 29.0 H (7.0-18.0) mg/dL Creatinine 2.79 H (0.70-1.30) mg/dL Est GFR ( Amer) 29 L (>=60) Est GFR (Non-Af Amer) 23 L (>=60) BUN/Creatinine Ratio 10.4 Glucose 56 L (74-106) mg/dL Lactate 1.6 (0.4-2.0) mmol/L Calcium 7.8 L (8.5-10.1) mg/dL Total Bilirubin 0.3 (0.2-1.0) mg/dL AST 10 L (15-37) U/L ALT 13 L (16-63) U/L Alkaline Phosphatase 132 H (46-116) U/L Troponin I High Sens 6.4 5.1 (4.0-76.1) pg/mL NT-Pro-B Natriuret Pep 222.0 (<=900.0) pg/mL Total Protein 6.8 (6.4-8.2) g/dL Albumin 2.8 L (3.4-5.0) g/dL Globulin 4.0 g/dL Albumin/Globulin Ratio 0.7 POC Glucose 137 H (74-106) mg/dL Imaging Data Chest x-ray: Attestation: I have reviewed the pertinent imaging results. Radiologist's impression: ITS Impressions Chest X-Ray 12/21/23 20:31 IMPRESSION: No acute cardiopulmonary process. Electronically authenticated by: CHINYERE VALDEZ Date: 12/21/2023 21:53 ECG Data Attestation: I personally reviewed and interpreted this ECG as follows: (Normal sinus rhythm at a rate of 89, no acute ST elevation or ectopy. EKG reviewed by attending physician) Discharge Plan Discharge Chief Complaint: Shortness of Breath/Dyspnea Clinical Impression: Weakness, Dehydration, ROEL (acute kidney injury), Shortness of breath, COPD exacerbation Patient Disposition: Admitted As Inpatient Time of Disposition Decision: 21:29 Condition: Good Discharge Date/Time: 12/21/23 23:00
--- OUTSIDE RECORDS SUMMARY | 2023-12-21 19:49 | XMS_ITS | CCD ---
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 Jenaro Orona Primary Care UnavailDolores [...] Unavailable DO Jenaro Lynch Primary Care Provider [phone] MD Nancy Wilson Emergency Provider [phone] DO Jenaro Lynch Primary Care Provider MD Nancy Wilson Emergency Provider JERARDO Mclaughlin Attending Provider [phone] JERARDO Mclaughlin Referring Provider LINDSEY Elias Attending Provider DO Jenaro Lynch Primary Care Provider [phone] Jenaro Lynch DO Primary Care Provider RAULITO INMAN Attending Unavailable JENARO LYNCH Primary Care Unavailable ROWE, Yeyo Blum Attending Unavailable Simno, Mohamed F. Referring Unavailable Simon, Mohamed F. Attending Unavailable Simon, Mohamed F. Admitting Unavailable SIMON, MOHAMED F Attending Unavailable HIGHLANDER, PAULA Hooker Referring Unavailable SIMON, MOHAMED F Admitting Unavailable SIMON, MOHAMED F Attending Unavailable ONLY), [facility] (INPATIENT Consult ing Unavailable DERISO, ROSIE Brian Referring Unavailable BROOKENS, MAAME Hooker Referring Unavailable DERISO, ROSIE C Referring Unavailable [...] Attending Unavailable ROWE, Yeyo R Attending Unavailable SIMON, MOHAMED F Attending Unavailable DO Jenaro Lynch Primary Care Provider Jenaro Lynch Primary Care Unavailable Shana Mclaughlin Referring Unavailable Shana Mclaughlin Attending Unavailable Shana Mclaughlin Admitting Unavailable Jenaro Lynch Primary Care Unavailable Nancy Wilson Attending Unavailable Nancy Wilson Admitting Unavailable Highlander, Paula Hooker Admitting Unavailable Highlander, Paula Hooker Attending Unavailable Highlbhavin, Paula Hooker Attending Unavailable Highlander, Paula Hooker Admitting Unavailable Highlander, Paula Hooker Attending Unavailable Paula Elias Admitting Unavailable Jenaro Lynch Primary Care Unavailable Paula Elias Attending Unavailable Paula Elias Admitting Unavailable Allergies Allergy Classification Reported Allergen(s) Allergy Type Date of Onset Reaction(s) Facility (20 sources) natural latex rubber; Translations: [LATEX] Allergy to substance (finding) 03-27-20 23 Itching (finding), Eruption of skin (disorder) [facility] (20 sources) Penicillins; Translations: [Penicillins] Allergy to drug (finding) 11-05-19 14 Anaphylactoid reaction (disorder) [facility] (20 sources) Acetaminophen / oxyCODONE Drug Allergy vomiting [facility] Other (20 sources) tamsulosin; Translations: [TAMSULOSIN] Drug Allergy 07-14-19 21 hives [facility] (20 sources) PENICIILIN Propensity to adverse reactions SWELLING OF AIRWAY [facility] Other (10 sources) Acetaminophen; Translations: [ACETAMINOPHEN] Drug Allergy 07-14-19 21 Vomiting [facility] (11 sources) oxyCODONE; Translations: [Oxycodone] Drug Allergy 02-08-20 17 Vomiting [facility] (1 source) Penicillins Drug allergy (disorder) 09-23-19 14 [facility] Repository (16 sources) Penicillin G; Translations: [penicillin G benzathine] Drug Allergy [facility] (8 sources) Penicillin Drug Allergy anaphylaxis [facility] Other (1 source) Latex Allergy to substance 03-27-20 23 Unknown [facility] (1 source) Penicillins Drug Allergy 03-27-20 23 Anaphylaxis [facility] Work Phone: (4 sources) Isosorbide; Translations: [ISOSORBIDE MONONITRATE] Drug Allergy 08-05-19 15 [facility] Repository (1 source) Penicillins Drug allergy (disorder) 07-31-19 24 [facility] Repository (1 source) tamsulosin Drug Allergy 07-31-19 24 [facility] Repository Medications Current Medications Medication [...] 1:00am July 14, 2020 12:39pm Start: 10-10-2014 [place] 325 mg-5 mg oral tablet 1 tab(s), [...] 1 tablet by kalie th once daily amitriptyline (Elavil) 100 mg tablet [...] formoterol fumarate 0.0045 mg/actuat metered dose inhaler (5 sources) Corticosteroid, beta2-Adrenergic Agonist Start: 07-12-2023 Budesonide-Formoterol [...] Cotransporter 2 Inhibitor Start: 11-24-19 take 1 tablet by mouth once daily [...] sulfate 142 mg extended release oral tablet (11 sources) Start: 07-26-2023 Ferrous Sulfat e (Slow [...] Active 1.5 ml fremanezumab-vfrm 150 mg/ml auto-injector (6 sources) Start: 07-18-2023 Ajovy Autoinje ctor 225 mg/1.5 mL auto-injector Inject 1 Pen (225 mg) under the skin every 30 (thirty) days. 07/18/2023 Active Start: 07-12-2023 Fremanezumab-V frm (Ajovy Autoinjector) 225 mg/1.5 mL auto-injector Active 225 MG SUBCUT Q30D July 12, 2023 1:00am furosemide 40 mg oral tablet (12 sources) Loop Diuretic Start: 07-26-2023 End: 07-25-2024 [...] tablet (20 sources) Nitrate Vasodilator Start: take 30 mg by mouth once daily [...] 2018 12:00am take 1 tablet by kalie th every [...] tablet (20 sources) Nitrate Vasodilator Start: 11-03-2021 Nitroglyce rin (Nitrostat) 0.4 mg tablet, sublingual Active 0.4 MG SUBLINGUAL every 5 to 15 minutes July 12, 2023 1:00am do not exceed 3 doses per episode Start: 07-10-2014 End: 03-13-2019 Nitroglycerin Discontinued 0 .4 MG SUBLINGUAL every 5 to 15 minutes April 01, 2018 12:00am March 13, 2019 8:00am Nitroglycerin 0. 4 MG as directed Sublingual Active ProAir HFA 108 (90 Base) MCG/ACT (20 sources) Start: 12-04-2017 take 2 puff(s) by inhalation every four hours as needed ProAir HFA 108 (90 Base) MCG/ACT 2 puffs as needed Inhalation Q4H PRN PRN Dec, Active Start: 12-04-2017 take 2 puff(s) by inhalation e very four hours as needed rimegepant 75 mg disintegrating oral tablet (5 sources) Start: 07-12-2023 take 1 tablet by [...] 1:00am tamsulosin hydrochloride 0.4 mg oral capsule (16 sources) alpha-Adrenergic Saida Start: 06-26-2023 take 0.4 mg by mouth twice daily Tamsulosin Active 0.4 MG PO Twice daily July 12, 2023 1:00am Start: 02-14-2023 take 1 capsule by [facility] twice daily tamsulosin 0.4 mg Cap 0.4 mg = 1 cap(s), Oral, BID, # 60 cap(s), Refills(s) 3, Pharmacy: [facility]/pharmacy #[id number], 182, cm, 02/14/23 8:58:00 EDT, Height/Length Dosing, 94, kg, 01/30/23 10:24:00 EDT, Weight Dosing Start Date: 02/14/23 Status: Ordered take 1 capsule by [facility] once daily Tamsulosin HCl - 0.4 MG Oral Capsule TAKE 1 CAPSULE Daily Quantity: 0 Refills: 0 Ordered: 15-Feb-2023 DO Active TENS Unit (20 sources) Start: 01-27-2014 Start: 01-27-2014 TENS Unit as d irected Use as directed. Jan, Active Tiotropium [place] (Spiriva With Handihaler) 18 mcg capsule, w/inhalation device (5 sources) Start: 07-12-2023 take 1 capsule by inhalation once daily Tiotropium [place] (Spiriva With Handihaler) 18 mcg capsule, w/inhalation device Active 1 CAP INHALATION Daily July 12, 2023 1:00am puncture 1 cap using device; one dose = 2 inhalations Start: 07-12-2023 take 1 capsule by in halation once daily Tiotropium [place] (Spiriva With Handihaler) 18 mcg capsule, w/inhalation [...] Jun, Active take 2 tablets by [facility] at bedtime tiZANidine HCl - 4 MG Oral Tablet TAKE 2 TABLETS AT BEDTIME. Quantity: 0 Refills: 0 Ordered: 11-Jan-2023 DO Active traMADol hydrochloride 50 mg oral tablet (19 sources) Opioid Agonist Start: 07-26-2023 take 1 [...] Sig (Original) alogliptin 25 mg oral tablet (12 sources) Start: 07-14-2020 End: 07-12-2023 take 1 [...] 2020 9:18am ALPRAZolam 0.5 mg oral tablet (18 sources) Benzodiazepine Start: 08-08-2019 End: 07-14-2020 take [...] (Therapy completed) amLODIPine 10 mg oral tablet (20 sources) Dihydropyridine Calcium Channel Saida Start: 04-01-2018 [...] Ordered busPIRone hydrochloride 10 mg oral tablet (6 sources) Start: 03-13-2019 End: 07-24-2019 take 10 [...] 11:24am dicyclomine hydrochloride 20 mg oral tablet (15 sources) Anticholinergic Start: 05-22-2020 End: 07-12-2023 take [...] procedure, # 2 cap(s), Refills(s) 0, Pharmacy: [facility]/pharmacy #[id number], 182, cm, 01/30/23 10:24:00 EDT, Height/Length Dosing, 94, kg, 01/30/23 10:24:00 EDT, Weight Dosing Start Date: 01/30/23 Status: Ordered hydroCHLOROthiazide 25 mg / losartan potassium 100 mg oral tablet (6 sources) Thiazide Diuretic, Angiotensin 2 Receptor Saida Start: 04-01-2018 End: 03-13-2019 take 1 tablet by mouth once daily Losartan-Hydroch lorothiazide Discontinued 1 TAB PO Daily April 01, 2018 12:00am March 13, 2019 8:00am hydroCHLOROthiazide 12.5 mg / olmesartan medoxomil 40 mg oral tablet (6 sources) Thiazide Diuretic, Angiotensin 2 Receptor Saida Start: 07-24-2019 End: 07-14-2020 take 1 tablet by mouth once daily Olmesartan-Dakota chlorothiazide (Benicar Hct) 40-12.5 mg Tablet Discontinued 1 TAB PO Daily July 24, 2019 1:00am July 14, 2020 12:39pm Ketorolac (20 sources) Nonsteroidal Anti-inflammatory Drug, Cyclooxygenase Inhibitor Start: 01-15-2018 Toradol per 15 mg Jan, 2 cc Start: 01-05-2018 Toradol per 15 mg Jan, 2 cc Start: 01-04-2018 Toradol per 15 mg Jan, 2 cc lansoprazole 30 mg delayed release oral capsule (6 sources) Proton Pump Inhibitor Start: 07-24-2019 End: 07-14-2020 take 1 capsule by mouth twice daily Lansoprazole (Prevacid) 30 mg Capsule,Delayed Release(Dr/Ec) Discontinued 30 MG PO Twice daily July 24, 2019 1:00am July 14, 2020 12:39pm olmesartan medoxomil 5 mg oral tablet (12 sources) Angiotensin 2 Receptor Saida Start: 03-13-2019 End: 07-24-2019 take 1 tablet by mouth once daily Olmesartan (Benicar) 5 mg Tablet Discontinued 5 MG PO Daily June 28, 2019 1:00am July 24, 2019 2:52pm omeprazole 40 mg delayed release oral capsule [...] 2019 1:00am Start: 01-02-2018 End: 10-24-2023 take 1 capsule by mouth once daily Omeprazole Discontinued 40 MG PO Daily July 26, 2023 1:00am September 27, 2023 3:58pm FreeTextSi capsule Orally Once a day; Note: Source Status: Taking; Refills: 1; Qty: 90 Capsule; Provider: Syed Guerra take 2 tablets by [facility] twice daily before mealtime omeprazole OTC (PriLOSEC OTC) 20 mg EC tablet Take 2 tablets (40 mg) by mouth 2 times a day before meals. Do not crush, chew, or split. Active pregabalin 200 mg oral capsule (20 sources) Start: 01-24-2011 End: 12-05-2023 take 1 capsule by mouth three times daily Pregabalin (Lyrica) 200 mg capsule Discontinued 200 MG PO Three times daily 270 90 September 27, 2023 3:57pm September 28, 2023 10:19am 12 hr ranolazine 1000 mg extended release oral tablet (20 sources) Anti-anginal Start: 07-10-2014 End: 07-14-2020 take [...] mg traZODone hydrochloride 50 mg oral tablet (6 sources) Serotonin Reuptake Inhibitor Start: 07-24-2019 End: 07-14-2020 take 50 mg by mouth at bedtime Trazodone Discontinued 50 MG PO Bedtime July 24, 2019 1:00am July 14, 2020 12:40pm Triamcinolone (20 sources) Corticosteroid Start: 10-02-2013 KENALOG - 10 mg Sep, 1 cc varenicline 1 mg oral tablet (6 sources) Partial Cholinergic Nicotinic Agonist Start: 07-14-2020 [...] [Coronary atherosclerosis of unspecified type of vessel, [place] or graft] Onset: 2 Resolved: 2 [...] limb due to atherosclerosis; Translations: [Atherosclerosis of [place] arteries of extremities with gangrene, right leg] [...] with vomiting, unspecified] Episodic Nonspecific chest pain (6 sources) Chest pain; Translations: [Chest pain, unspecified] 04-01-2018 Episodic Nutritional deficiencies (20 sources) Vitamin D deficiency; Translations: [Vitamin D deficiency, unspecified] Onset: 2 Resolved: 2 Chronic Osteoarthritis (14 sources) Arthritis 01-16-2013 Chronic Other acquired deformities (20 sources) Contracture of joint of hand; Translations: [Contracture, 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 Other aftercare (20 sources) Long-term current use of insulin; 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: [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] Episodic Other and [...] Translations: [Insomnia, unspecified] Episodic Residual codes; unclassified (6 sources) FH: premature coronary heart disease; Translations: [...] 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 ([facility]) [I70.261] Onset: 4 Unclassified (1 source) New [...] Test Name Value Interpretation Reference Range Facility [facility] 12-15-2023 L Specimen: [id number] Received: 12/15/23 Status: COLTON Nath Num: [id number] Spec Type: Surgical Subm Dr: Paula Elias DPM, MS Tissues: A DIGIT AMPUTATION (RT METATARSAL) Procedures: HE/3, Gross/Micro L4, Decalcification Age/ Patient Sex Location Account Attending Physician Solomon Feldman SR 58/M LABELL [id number] Paula Elias DPM, MS SPEC NUM: [id number] RECD: 12/15/23 STATUS: COLTON NATH NUM: [id number] SHAKIRA: 12/15/[address]: Paula Elias DPM, MS ENTERED: 12/15/23 [facility] DR: Aurelio,Jericho SPEC TYPE: Surgical DEPT: RAMSEY MARCANO ORDERED: HE/3, Gross/Micro L4, Decalcification ORDERED: HE/3, Gross/Micro L4, Decalcification Pathological Diagnosis Right metatarsal bone, right TMA revision excision: -Moderate nonhealing chronic wound of the fibroadipose tenosynovial soft tissue of the right foot -Patchy mild to moderate chronic injuries of all examined bony margins, including patchy mild to moderate chronic inflammation of the medullary spaces with associated serous degeneration and granulation tissue?like stromal responses, and occasional small foci of osteonecrosis also apparent, otherwise without any obvious or significant acute inflammation, or acute osteomyelitis identified Clinical Information Disruption of surgical wound Gross Description Received in formalin labeled with the patient's name, date of and right metatarsals are 5 undesignated shaved proximal phalangeal bones ranging from 2.5 x 2.2 x 0.9 cm to 0.9 x 0.9 x 0.3 cm. Each of the arbitrarily designated detached proximal phalanges is inked along its margin as follows: #1-red, #2-black, #3-orange, #4-green and #5-blue. Sectioning into each fragment reveals firm unremarkable yellow spongy bone matrix. No lesions or areas of necrosis are present. Each margin is shaved and submitted following decalcification as follows: Specimen: [id number] Received: 12/15/23 Status: COLTON Yaplinda Num: [id number] Spec Type: Surgical Subm Dr: Paula Elias,LINDSEY, MS Tissues: A DIGIT AMPUTATION (RT METATARSAL) Procedures: HE/3, Gross/Micro L4, Decalcification Patient: Solomon Feldman SR [id number] (Continued) Specimen: [id number] Received: 12/15/23 (Continued) Gross Description (Continued) Signed (signature on file) Victor Hugo Sotelo MD 07/1206 Specimen: [id number] Received: 12/15/23 Status: COLTON Nath Num: [id number] Spec Type: Surgical Subm Dr: Paula Elias,LINDSEY, MS Tissues: A DIGIT AMPUTATION (RT METATARSAL) Procedures: HE/3, Gross/Micro L4, Decalcification Patient: Solomon Feldman SR [id number] (Continued) Specimen: [id number] Received: 12/15/23 (Continued) Gross Description (Continued) A1: Margin #1 A2: Margins #2, #3 A3: Margins #4, #5 TW Microscopic Description Microscopic examinations are performed supporting the above interpretation CPT Codes 97403, 78934 Specimen: [id number] Received: 12/15/23 Status: COLTON Nath Num: [id number] Spec Type: Surgical Subm Dr: Paula Elias,LINDSEY, MS Tissues: A DIGIT AMPUTATION (RT METATARSAL) Procedures: HE/3, Gross/Micro L4, Decalcification Patient: Solomon Feldman SR [id number] (Continued) Signed (signature on file) Chin-Jerry Sotelo MD 12/20/23 1207 Normal [facility] Basophils Auto (Bld) [#/Vol] on 12-10-2023 Basophils (Bld) [#/Vol] 0.1 10 3/uL 0.0-0.1 [facility] Basophils/100 WBC Auto (Bld) on 12-10-2023 Basophils/100 WBC (Bld) 0.9 % 0.2-2.0 [facility] Eosinophils/100 WBC Auto (Bl d)on 12-10-2023 Eosinophils/100 WBC (Bld) 2.6 % 0.9-7.0 [facility] Erythrocyte distribution wid th Auto (RBC) [Ratio]on 12-10-2023 Erythrocyte distribution width (RBC) [Ratio] 17.7 % High 11.0-15.0 [facility] Estimated glomerular filtrat ion rate (GFR) non- Americanon 12-10-2023 GFR/1.73 sq M.predicted among non-blacks MDRD (S/P/Bld) [Vol rate/Area] 38 mL/min/{1.73_m2} Low >=60 [facility] Globulin Calc (S) [Mass/Vol] on 12-10-2023 Globulin (S) [Mass/Vol] 3.9 g/dL [facility] Hematocrit Auto (Bld) [Volum e fraction]on 12-10-2023 Hematocrit (Bld) [Volume fraction] 34.2 % Low 42.0-54.0 [facility] Hemoglobin [Mass/volume] in Bloodon 12-10-2023 Hemoglobin (Bld) [Mass/Vol] 10.5 g/dL Low 14.0-18.0 [facility] Laboratory - Chemistry and C hemistry - challengeon 12-10-2023 Albumin [Mass/Vol] 2.8 g/dL Low 3.4-5.0 [facility] ALP [Catalytic activity/Vol] 119 U/L High 46-116 [facility] ALT [Catalytic activity/Vol] 11 U/L Low 16-63 [facility] AST [Catalytic activity/Vol] 10 U/L Low 15-37 [facility] Bilirubin [Mass/Vol] 0.4 mg/dL 0.2-1.0 [facility] Calcium [Mass/Vol] 8.4 mg/dL Low 8.5-10.1 [facility] Chloride [Moles/Vol] 101 mmol/L 98-107 [facility] CO2 [Moles/Vol] 27.0 mmol/L 21.0-32.0 [facility] Creatinine [Mass/Vol] 1.83 mg/dL High 0.70-1.30 [facility] GFR/1.73 sq M.predicted MDRD (S/P/Bld) [Vol rate/Area] 46 mL/min/{1.73_m2} Low >=60 [facility] Glucose [Mass/Vol] 113 mg/dL High 74-106 [facility] Potassium [Moles/Vol] 3.3 mmol/L Low 3.5-5.1 [facility] Protein [Mass/Vol] 6.7 g/dL 6.4-8.2 [facility] Sodium [Moles/Vol] 134 mmol/L Low 136-145 [facility] Urea nitrogen [Mass/Vol] 21.0 mg/dL High 7.0-18.0 [facility] Urea nitrogen/Creatinine [Mass ratio] 11.5 mg/mg [facility] Laboratory - Hematology and Cell countson 12-10-2023 Immature granulocytes/100 WBC (Bld) 0.3 % 0.0-0.5 [facility] Leukocytes [#/volume] correc jorge for nucleated erythrocytes in Blood by Automated counon 12-10-2023 WBC corrected for nucl RBC Auto (Bld) [#/Vol] 9.8 10 3/uL 4.0-11.0 [facility] Lymphocytes Auto (Bld) [#/Vo l]on 12-10-2023 Lymphocytes (Bld) [#/Vol] 1.5 10 3/uL 1.2-3.8 [facility] Lymphocytes/100 WBC Auto (Bl d)on 12-10-2023 Lymphocytes/100 WBC (Bld) 15.8 % Low 20.5-60.0 [facility] MCH Auto (RBC) [Entitic mass ]on 12-10-2023 MCH (RBC) [Entitic mass] 25.1 pg Low 25.9-34.0 [facility] MCHC Auto (RBC) [Mass/Vol]on 12-10-2023 MCHC (RBC) [Mass/Vol] 30.7 g/dL 29.9-35.2 [facility] MCV Auto (RBC) [Entitic vol] on 12-10-2023 MCV (RBC) [Entitic vol] 81.6 fL 80.0-94.0 [facility] Monocytes Auto (Bld) [#/Vol] on 12-10-2023 Monocytes (Bld) [#/Vol] 1.2 10 3/uL High 0.3-0.8 [facility] Monocytes/100 WBC Auto (Bld) on 12-10-2023 Monocytes/100 WBC (Bld) 11.9 % 1.7-12.0 [facility] Neutrophils Auto (Bld) [#/Vo l]on 12-10-2023 Neutrophils (Bld) [#/Vol] 6.7 10 3/uL High 1.4-6.5 [facility] Neutrophils/100 WBC Auto (Bl d)on 12-10-2023 Neutrophils/100 WBC (Bld) 68.5 % 43.0-75.0 [facility] No Panel Informationon 12-09 Eosinophils # (Auto) 0.3 10 3/uL 0.0-0.7 [facility] Immature Granulocyte # (Auto) 0.03 10 3/uL 0.00-0.03 [facility] Platelet mean volume Auto (B ld) [Entitic vol]on 12-10-2023 Platelet mean volume (Bld) [Entitic vol] 10.2 fL 9.5-13.5 [facility] Platelets Auto (Bld) [#/Vol] on 12-10-2023 Platelets (Bld) [#/Vol] 240 10 3/uL 150-450 [facility] RBC Auto (Bld) [#/Vol]on RBC (Bld) [#/Vol] 4.19 10 6/uL Low 4.70-6.10 [facility] Serum or plasma albumin/glob ulin mass ratioon 12-10-2023 Albumin/Globulin [Mass ratio] 0.7 {ratio} [facility] Serum or plasma anion gap de terminationon 12-10-2023 Anion gap [Moles/Vol] 9.3 mmol/L [facility] Basophils Auto (Bld) [#/Vol] on 12-09-2023 Basophils (Bld) [#/Vol] 0.1 10 3/uL 0.0-0.1 [facility] Basophils/100 WBC Auto (Bld) on 12-09-2023 Basophils/100 WBC (Bld) 1.0 % 0.2-2.0 [facility] Eosinophils/100 WBC Auto (Bl d)on 12-09-2023 Eosinophils/100 WBC (Bld) 1.6 % 0.9-7.0 [facility] Erythrocyte distribution wid th Auto (RBC) [Ratio]on 12-09-2023 Erythrocyte distribution width (RBC) [Ratio] 17.7 % High 11.0-15.0 [facility] Estimated glomerular filtrat ion rate (GFR) non- Americanon 12-09-2023 GFR/1.73 sq M.predicted among non-blacks MDRD (S/P/Bld) [Vol rate/Area] 31 mL/min/{1.73_m2} Low >=60 [facility] Fibrin D-dimer [Presence] in Platelet poor plasma by Latex agglutinationon 12-09-2023 Fibrin D-dimer LA Ql (PPP) 3.76 mg/L FEU High <=0.59 [facility] Comment on above: RESULTS CALLED TO DR Perkins in D-Dimer concentration observed withthromboembolic events can be variable due to localization,size, and age of the thrombus. Therefore, a thromboembolicevent cannot be diagnosed with certainty on the basis of thereference range. D-Dimers may also be elevated for a varietyof disorders including advanced age, , coronarydisease, cancer, liver disease, infection, inflammation,hematoma, DIC, trauma, post-surgery, diabetes, thrombolyticor anticoagulant therapy, stress, and generalizedhospitalization. Globulin Calc (S) [Mass/Vol] on 12-09-2023 Globulin (S) [Mass/Vol] 4.6 g/dL [facility] Hematocrit Auto (Bld) [Volum e fraction]on 12-09-2023 Hematocrit (Bld) [Volume fraction] 39.2 % Low 42.0-54.0 [facility] Hemoglobin [Mass/volume] in Bloodon 12-09-2023 Hemoglobin (Bld) [Mass/Vol] 12.2 g/dL Low 14.0-18.0 [facility] Laboratory - Chemistry and C hemistry - challengeon 12-09-2023 Lactate [Moles/Vol] 2.9 mmol/L High 0.4-2.0 [facility] Comment on above: RESULTS CALLED TO RM SHARPE RN Bilirubin Ql (U) Negative NEGATIVE [facility] Glucose (U) [Mass/Vol] 500 mg/dL Abnormal NEGATIVE [facility] Ketones Ql (U) Negative NEGATIVE [facility] pH (U) 6.5 [pH] 5.0-9.0 [facility] Specific gravity (U) [Rel density] 1.020 1.005-1.02 5 [facility] Urobilinogen Qn (U) 0.2 {Brendan'U}/dL 0.2-1.0 [facility] Albumin [Mass/Vol] 3.5 g/dL 3.4-5.0 [facility] ALP [Catalytic activity/Vol] 141 U/L High 46-116 [facility] ALT [Catalytic activity/Vol] 13 U/L Low 16-63 [facility] AST [Catalytic activity/Vol] 8 U/L Low 15-37 [facility] Bilirubin [Mass/Vol] 0.7 mg/dL 0.2-1.0 [facility] Calcium [Mass/Vol] 9.6 mg/dL 8.5-10.1 [facility] Chloride [Moles/Vol] 99 mmol/L 98-107 [facility] CO2 [Moles/Vol] 21.7 mmol/L 21.0-32.0 [facility] Creatinine [Mass/Vol] 2.17 mg/dL High 0.70-1.30 [facility] GFR/1.73 sq M.predicted MDRD (S/P/Bld) [Vol rate/Area] 38 mL/min/{1.73_m2} Low >=60 [facility] Glucose [Mass/Vol] 191 mg/dL High 74-106 [facility] Magnesium [Mass/Vol] 1.6 mg/dL Low 1.8-2.4 [facility] Potassium [Moles/Vol] 3.8 mmol/L 3.5-5.1 [facility] Protein [Mass/Vol] 8.1 g/dL 6.4-8.2 [facility] Sodium [Moles/Vol] 135 mmol/L Low 136-145 [facility] Urea nitrogen [Mass/Vol] 20.0 mg/dL High 7.0-18.0 [facility] Urea nitrogen/Creatinine [Mass ratio] 9.2 mg/mg [facility] Laboratory - Hematology and Cell countson 12-09-2023 Immature granulocytes/100 WBC (Bld) 0.3 % 0.0-0.5 [facility] Laboratory - Microbiology an d Antimicrobial susceptibilityon 12-09-2023 SARS-CoV-2 (COVID-19) RNA NELLY+probe Ql (Unsp spec) Negative NEGATIVE [facility] Comment on above: This test has not be en FDA cleared or approved, but has beenauthorized by the FDA under an Emergency Use Authorization(EUA) for use by authorized laboratories certified underIA that meet the requirements to perform moderate or highcomplexity testing. This test has been authorized only forthe detection of proteins from SARS-CoV-2, not for any otherviruses or pathogens. The emergency use of this test isauthorized for the duration of the declaration thatcircumstances exist justifying the authorization ofemergency use of in vitro diagnostic tests for detectionand/or diagnosis of Covid-19 under section 564(b)(1) of theAct, 21 U.S.C. 360bbb-3(b)(1), unless the declaration isterminated or authorization is revoked sooner. Laboratory - Specimen inform ationon 12-09-2023 Appearance (U) CLEAR CLEAR [facility] Color (U) YELLOW YELLOW [facility] Laboratory - Urinalysison Leukocyte esterase Test strip Ql (U) Negative NEGATIVE [facility] Nitrite Ql (U) Negative NEGATIVE [facility] Protein Ql (U) Negative NEG/TRACE [facility] Leukocytes [#/volume] correc jorge for nucleated erythrocytes in Blood by Automated counon 12-09-2023 WBC corrected for nucl RBC Auto (Bld) [#/Vol] 9.3 10 3/uL 4.0-11.0 [facility] Lymphocytes Auto (Bld) [#/Vo l]on 12-09-2023 Lymphocytes (Bld) [#/Vol] 1.5 10 3/uL 1.2-3.8 [facility] Lymphocytes/100 WBC Auto (Bl d)on 12-09-2023 Lymphocytes/100 WBC (Bld) 15.7 % Low 20.5-60.0 [facility] MCH Auto (RBC) [Entitic mass ]on 12-09-2023 MCH (RBC) [Entitic mass] 25.6 pg Low 25.9-34.0 [facility] MCHC Auto (RBC) [Mass/Vol]on 12-09-2023 MCHC (RBC) [Mass/Vol] 31.1 g/dL 29.9-35.2 [facility] MCV Auto (RBC) [Entitic vol] on 12-09-2023 MCV (RBC) [Entitic vol] 82.4 fL 80.0-94.0 [facility] Monocytes Auto (Bld) [#/Vol] on 12-09-2023 Monocytes (Bld) [#/Vol] 0.9 10 3/uL High 0.3-0.8 [facility] Monocytes/100 WBC Auto (Bld) on 12-09-2023 Monocytes/100 WBC (Bld) 9.1 % 1.7-12.0 [facility] Neutrophils Auto (Bld) [#/Vo l]on 12-09-2023 Neutrophils (Bld) [#/Vol] 6.7 10 3/uL High 1.4-6.5 [facility] Neutrophils/100 WBC Auto (Bl d)on 12-09-2023 Neutrophils/100 WBC (Bld) 72.3 % 43.0-75.0 [facility] No Panel Informationon 12-08 Urine Microscopic Review NO [facility] Urine Occult Blood Negative NEGATIVE [facility] Eosinophils # (Auto) 0.2 10 3/uL 0.0-0.7 [facility] Immature Granulocyte # (Auto) 0.03 10 3/uL 0.00-0.03 [facility] Troponin I High Sensitivity 8.7 pg/mL 4.0-76.1 [facility] Comment on above: CUT-OFF POINTS [...] IN CONJUNCTIONWITH OTHER DIAGNOSTIC AND CLINICAL INFORMATION. Platelet mean volume Auto (B ld) [Entitic vol]on 12-09-2023 Platelet mean volume (Bld) [Entitic vol] 10.7 fL 9.5-13.5 [facility] Platelets Auto (Bld) [#/Vol] on 12-09-2023 Platelets (Bld) [#/Vol] 294 10 3/uL 150-450 [facility] RBC Auto (Bld) [#/Vol]on RBC (Bld) [#/Vol] 4.76 10 6/uL 4.70-6.10 [facility] Serum or plasma albumin/glob ulin mass ratioon 12-09-2023 Albumin/Globulin [Mass ratio] 0.8 {ratio} [facility] Serum or plasma anion gap de terminationon 12-09-2023 Anion gap [Moles/Vol] 18.1 mmol/L [facility] Outside Operativeon 11-28-19 24 Outside Operative [id number]#1.00TIFF Normal [facility] Physician Orderon 11-28-2023 Physician Order [id number]#1.00TIFF Normal [facility] Basophils Auto (Bld) [#/Vol] on 11-26-2023 Basophils (Bld) [#/Vol] 0.1 10 3/uL 0.0-0.1 [facility] Basophils/100 WBC Auto (Bld) on 11-26-2023 Basophils/100 WBC (Bld) 1.1 % 0.2-2.0 [facility] Eosinophils/100 WBC Auto (Bl d)on 11-26-2023 Eosinophils/100 WBC (Bld) 3.5 % 0.9-7.0 [facility] Erythrocyte distribution wid th Auto (RBC) [Ratio]on 11-26-2023 Erythrocyte distribution width (RBC) [Ratio] 20.0 % High 11.0-15.0 [facility] Estimated glomerular filtrat ion rate (GFR) non- Americanon 11-26-2023 GFR/1.73 sq M.predicted among non-blacks MDRD (S/P/Bld) [Vol rate/Area] 41 mL/min/{1.73_m2} Low >=60 [facility] Globulin Calc (S) [Mass/Vol] on 11-26-2023 Globulin (S) [Mass/Vol] 4.2 g/dL [facility] Hematocrit Auto (Bld) [Volum e fraction]on 11-26-2023 Hematocrit (Bld) [Volume fraction] 33.1 % Low 42.0-54.0 [facility] Hemoglobin [Mass/volume] in Bloodon 11-26-2023 Hemoglobin (Bld) [Mass/Vol] 9.8 g/dL Low 14.0-18.0 [facility] Laboratory - Chemistry and C hemistry - challengeon 11-26-2023 Albumin [Mass/Vol] 3.2 g/dL Low 3.4-5.0 [facility] ALP [Catalytic activity/Vol] 143 U/L High 46-116 [facility] ALT [Catalytic activity/Vol] 16 U/L 16-63 [facility] AST [Catalytic activity/Vol] 14 U/L Low 15-37 [facility] Bilirubin [Mass/Vol] 0.5 mg/dL 0.2-1.0 [facility] Calcium [Mass/Vol] 9.1 mg/dL 8.5-10.1 [facility] Chloride [Moles/Vol] 101 mmol/L 98-107 [facility] CO2 [Moles/Vol] 24.2 mmol/L 21.0-32.0 [facility] Creatinine [Mass/Vol] 1.72 mg/dL High 0.70-1.30 [facility] GFR/1.73 sq M.predicted MDRD (S/P/Bld) [Vol rate/Area] 50 mL/min/{1.73_m2} Low >=60 [facility] Glucose [Mass/Vol] 132 mg/dL High 74-106 [facility] Lactate [Moles/Vol] 3.6 mmol/L High 0.4-2.0 [facility] Comment on above: RESULTS CALLED TO DR CROOK/YASMIN Potassium [Moles/Vol] 3.7 mmol/L 3.5-5.1 [facility] Protein [Mass/Vol] 7.4 g/dL 6.4-8.2 [facility] Sodium [Moles/Vol] 138 mmol/L 136-145 [facility] Urea nitrogen [Mass/Vol] 26.0 mg/dL High 7.0-18.0 [facility] Urea nitrogen/Creatinine [Mass ratio] 15.1 mg/mg [facility] Laboratory - Hematology and Cell countson 11-26-2023 ESR (Bld) [Velocity] 96 mm/h High <=20 [facility] Immature granulocytes/100 WBC (Bld) 0.4 % 0.0-0.5 [facility] Leukocytes [#/volume] correc jorge for nucleated erythrocytes in Blood by Automated counon 11-26-2023 WBC corrected for nucl RBC Auto (Bld) [#/Vol] 9.1 10 3/uL 4.0-11.0 [facility] Lymphocytes Auto (Bld) [#/Vo l]on 11-26-2023 Lymphocytes (Bld) [#/Vol] 2.1 10 3/uL 1.2-3.8 [facility] Lymphocytes/100 WBC Auto (Bl d)on 11-26-2023 Lymphocytes/100 WBC (Bld) 23.4 % 20.5-60.0 [facility] MCH Auto (RBC) [Entitic mass ]on 11-26-2023 MCH (RBC) [Entitic mass] 24.8 pg Low 25.9-34.0 [facility] MCHC Auto (RBC) [Mass/Vol]on 11-26-2023 MCHC (RBC) [Mass/Vol] 29.6 g/dL Low 29.9-35.2 [facility] MCV Auto (RBC) [Entitic vol] on 11-26-2023 MCV (RBC) [Entitic vol] 83.8 fL 80.0-94.0 [facility] Monocytes Auto (Bld) [#/Vol] on 11-26-2023 Monocytes (Bld) [#/Vol] 0.8 10 3/uL 0.3-0.8 [facility] Monocytes/100 WBC Auto (Bld) on 11-26-2023 Monocytes/100 WBC (Bld) 8.5 % 1.7-12.0 [facility] Neutrophils Auto (Bld) [#/Vo l]on 11-26-2023 Neutrophils (Bld) [#/Vol] 5.7 10 3/uL 1.4-6.5 [facility] Neutrophils/100 WBC Auto (Bl d)on 11-26-2023 Neutrophils/100 WBC (Bld) 63.1 % 43.0-75.0 [facility] No Panel InformationOrdered By: HERNAN CROOK on 11-26-2023 Blood Culture 2 [facility] Blood Culture 1 [facility] No Panel Informationon 11-25 C-Reactive Protein, Quantitative <0.50 mg/dL <=0.50 [facility] Eosinophils # (Auto) 0.3 10 3/uL 0.0-0.7 [facility] Immature Granulocyte # (Auto) 0.04 10 3/uL High 0.00-0.03 [facility] Platelet mean volume Auto (B ld) [Entitic vol]on 11-26-2023 Platelet mean volume (Bld) [Entitic vol] 10.4 fL 9.5-13.5 [facility] Platelets Auto (Bld) [#/Vol] on 11-26-2023 Platelets (Bld) [#/Vol] 371 10 3/uL 150-450 [facility] RBC Auto (Bld) [#/Vol]on RBC (Bld) [#/Vol] 3.95 10 6/uL Low 4.70-6.10 [facility] Serum or plasma albumin/glob ulin mass ratioon 11-26-2023 Albumin/Globulin [Mass ratio] 0.8 {ratio} [facility] Serum or plasma anion gap de terminationon 11-26-2023 Anion gap [Moles/Vol] 16.5 mmol/L [facility] Progress Note-Physicianon Progress Note-Physician [id number]#1.00TIFF Normal [facility] Basophils Auto (Bld) [#/Vol] on 11-15-2023 Basophils (Bld) [#/Vol] 0.1 10 3/uL 0.0-0.1 [facility] Basophils/100 WBC Auto (Bld) on 11-15-2023 Basophils/100 WBC (Bld) 0.8 % 0.2-2.0 [facility] Eosinophils/100 WBC Auto (Bl d)on 11-15-2023 Eosinophils/100 WBC (Bld) 5.9 % 0.9-7.0 [facility] Erythrocyte distribution wid th Auto (RBC) [Ratio]on 11-15-2023 Erythrocyte distribution width (RBC) [Ratio] 20.6 % High 11.0-15.0 [facility] Estimated glomerular filtrat ion rate (GFR) non- Americanon 11-15-2023 GFR/1.73 sq M.predicted among non-blacks MDRD (S/P/Bld) [Vol rate/Area] 44 mL/min/{1.73_m2} Low >=60 [facility] Globulin Calc (S) [Mass/Vol] on 11-15-2023 Globulin (S) [Mass/Vol] 4.7 g/dL [facility] Hematocrit Auto (Bld) [Volum e fraction]on 11-15-2023 Hematocrit (Bld) [Volume fraction] 27.6 % Low 42.0-54.0 [facility] Hemoglobin [Mass/volume] in Bloodon 11-15-2023 Hemoglobin (Bld) [Mass/Vol] 8.5 g/dL Low 14.0-18.0 [facility] Laboratory - Chemistry and C hemistry - challengeon 11-15-2023 Albumin [Mass/Vol] 2.4 g/dL Low 3.4-5.0 [facility] ALP [Catalytic activity/Vol] 194 U/L High 46-116 [facility] ALT [Catalytic activity/Vol] 22 U/L 16-63 [facility] AST [Catalytic activity/Vol] 25 U/L 15-37 [facility] Bilirubin [Mass/Vol] 0.9 mg/dL 0.2-1.0 [facility] Calcium [Mass/Vol] 8.9 mg/dL 8.5-10.1 [facility] Chloride [Moles/Vol] 97 mmol/L Low 98-107 [facility] CO2 [Moles/Vol] 26.6 mmol/L 21.0-32.0 [facility] Creatinine [Mass/Vol] 1.63 mg/dL High 0.70-1.30 [facility] GFR/1.73 sq M.predicted MDRD (S/P/Bld) [Vol rate/Area] 53 mL/min/{1.73_m2} Low >=60 [facility] Glucose [Mass/Vol] 226 mg/dL High 74-106 [facility] Lactate [Moles/Vol] 1.4 mmol/L 0.4-2.0 [facility] Potassium [Moles/Vol] 4.1 mmol/L 3.5-5.1 [facility] Protein [Mass/Vol] 7.1 g/dL 6.4-8.2 [facility] Sodium [Moles/Vol] 135 mmol/L Low 136-145 [facility] Urea nitrogen [Mass/Vol] 24.0 mg/dL High 7.0-18.0 [facility] Urea nitrogen/Creatinine [Mass ratio] 14.7 mg/mg [facility] Laboratory - Hematology and Cell countson 11-15-2023 Immature granulocytes/100 WBC (Bld) 0.6 % High 0.0-0.5 [facility] Leukocytes [#/volume] correc jorge for nucleated erythrocytes in Blood by Automated counon 11-15-2023 WBC corrected for nucl RBC Auto (Bld) [#/Vol] 9.5 10 3/uL 4.0-11.0 [facility] Lymphocytes Auto (Bld) [#/Vo l]on 11-15-2023 Lymphocytes (Bld) [#/Vol] 1.3 10 3/uL 1.2-3.8 [facility] Lymphocytes/100 WBC Auto (Bl d)on 11-15-2023 Lymphocytes/100 WBC (Bld) 14.1 % Low 20.5-60.0 [facility] MCH Auto (RBC) [Entitic mass ]on 11-15-2023 MCH (RBC) [Entitic mass] 24.9 pg Low 25.9-34.0 [facility] MCHC Auto (RBC) [Mass/Vol]on 11-15-2023 MCHC (RBC) [Mass/Vol] 30.8 g/dL 29.9-35.2 [facility] MCV Auto (RBC) [Entitic vol] on 11-15-2023 MCV (RBC) [Entitic vol] 80.9 fL 80.0-94.0 [facility] Monocytes Auto (Bld) [#/Vol] on 11-15-2023 Monocytes (Bld) [#/Vol] 1.1 10 3/uL High 0.3-0.8 [facility] Monocytes/100 WBC Auto (Bld) on 11-15-2023 Monocytes/100 WBC (Bld) 11.9 % 1.7-12.0 [facility] Neutrophils Auto (Bld) [#/Vo l]on 11-15-2023 Neutrophils (Bld) [#/Vol] 6.4 10 3/uL 1.4-6.5 [facility] Neutrophils/100 WBC Auto (Bl d)on 11-15-2023 Neutrophils/100 WBC (Bld) 66.7 % 43.0-75.0 [facility] No Panel InformationOrdered By: Fely Marker on 11-15-2023 Blood Culture 2 [facility] Blood Culture 1 [facility] No Panel Informationon 11-14 Eosinophils # (Auto) 0.6 10 3/uL 0.0-0.7 [facility] Immature Granulocyte # (Auto) 0.06 10 3/uL High 0.00-0.03 [facility] Platelet mean volume Auto (B ld) [Entitic vol]on 11-15-2023 Platelet mean volume (Bld) [Entitic vol] 10.8 fL 9.5-13.5 [facility] Platelets Auto (Bld) [#/Vol] on 11-15-2023 Platelets (Bld) [#/Vol] 338 10 3/uL 150-450 [facility] RBC Auto (Bld) [#/Vol]on RBC (Bld) [#/Vol] 3.41 10 6/uL Low 4.70-6.10 [facility] Serum or plasma albumin/glob ulin mass ratioon 11-15-2023 Albumin/Globulin [Mass ratio] 0.5 {ratio} [facility] Serum or plasma anion gap de terminationon 11-15-2023 Anion gap [Moles/Vol] 15.5 mmol/L [facility] BASIC METABOLIC PANLon 11-13 Anion gap [Moles/Vol] 10 mmol/L Normal 5-15 [facility] Comment on above: Performed By: #### C ALLY [facility], , 2776-06 ####[facility] ([id number])[address], [address] [address] Calcium [Mass/Vol] 8.8 mg/dL Normal 8.5-10.5 [facility] Comment on above: Performed By: #### C KENDALL CANALES, , 2776-06 ####[facility] ([id number])[address], [place] [address] Chloride [Moles/Vol] 99 mmol/L Normal 98-109 [facility] Comment on above: Performed By: #### C KENDALL CANALES, , 2776-06 ####[facility] ([id number])[address], [address], [place] [address] CO2 [Moles/Vol] 26 mmol/L Normal 22-32 [facility] Comment on above: Performed By: #### C ALLY [facility], , 2776-06 ####[facility] ([id number])[address], [place] [address] Creatinine [Mass/Vol] 1.61 mg/dL High 0.60-1.30 [facility] Comment on above: Result Comment: METH OD TRACEABLE TO IDMS STANDARD Performed By: #### C KENDALL CANALES, , 2776-06 ####[facility] ([id number])[address] [place] [address] GFR/1.73 sq M.predicted among non-blacks MDRD (S/P/Bld) [Vol rate/Area] 49 mL/min/{1.73_m2} Low >59 [facility] Comment on above: Result Comment: Reported eGFR is based on the CKD-EPI 2020 equation that does not use a race coefficient. Performed By: #### C KENDALL CANALES, , 2776-06 ####[facility] ([id number])[address] [place] [address] Glucose [Mass/Vol] 184 mg/dL High 65-99 [facility] Comment on above: Performed By: #### C KENDALL CANALES, , 2776-06 ####[facility] ([id number])[address], [place] [address] Potassium [Moles/Vol] 4.0 mmol/L Normal 3.5-5.0 [facility] Comment on above: Performed By: #### C KENDALL CANALES, , 2776-06 ####[facility] ([id number])[address], [place] [address] Sodium [Moles/Vol] 135 mmol/L Normal 134-146 [facility] Comment on above: Performed By: #### C KENDALL CANALES, , 2776-06 ####[facility] ([id number])[address] [place] [address] Urea nitrogen [Mass/Vol] 23 mg/dL Normal 5-23 [facility] Comment on above: Performed By: #### C ALLY, [facility], , 2776-06 ####[facility] ([id number])[address], [address] [address] COMPLETE BLOOD COUNTon 11-13 Erythrocyte distribution width (RBC) [Ratio] 22.8 % High 11.5-15.0 [facility] Comment on above: Performed By: #### C ALLY, [facility], , 2776-06 ####[facility] ([id number])[address] [address] Hematocrit (Bld) [Volume fraction] 25.1 % Low 39-49 [facility] Comment on above: Performed By: #### C ALLY, [facility], , 2776-06 ####[facility] ([id number])[address] [place] [address] Hemoglobin (Bld) [Mass/Vol] 8.1 g/dL Low 13.0-17.0 [facility] Comment on above: Performed By: #### Snehal CANALES, [facility], , 2776-06 ####[facility] ([id number])[address] [place] [address] MCH (RBC) [Entitic mass] 25.1 pg Low 27-34 [facility] Comment on above: Performed By: #### Snehal BC, [facility], , 2776-06 ####[facility] ([id number])[address] [place] [address] MCHC (RBC) [Mass/Vol] 32.4 g/dL Normal 32-36 [facility] Comment on above: Performed By: #### C ALLY, [facility], , 2776-06 ####[facility] ([id number])[address], [address], [place] [address] MCV (RBC) [Entitic vol] 77 fL Low 80-100 [facility] Comment on above: Performed By: #### Snehal CANALES [facility], , 2776-06 ####[facility] ([id number])[address] [address] Platelet mean volume (Bld) [Entitic vol] 8.8 fL Normal 7-12 [facility] Comment on above: Performed By: #### Snehal CANALES, [facility], , 2776-06 ####[facility] ([id number])[address], [address], [place] [address] Platelets (Bld) [#/Vol] 232 10*3/uL Normal 150-450 [facility] Comment on above: Performed By: #### Snehal CANALES [facility], , 2776-06 ####[facility] ([id number])[address], [address], [place] [address] RBC COUNT 3.25 X10E12/L Low 4.10-5.70 [facility] Comment on above: Performed By: #### Snehal CANALES [facility], , 2776-06 ####[facility] ([id number])[address] [address] WBC (Bld) [#/Vol] 8.4 10*3/uL Normal 4.0-11.0 [facility] Comment on above: Performed By: #### Snehal CANALES, BMP, , 2776-06 ####[facility] ([id number])[address], [address], [place] [address] Glucose Glucometer (BldC) [M ass/Vol]on 11-14-2023 Glucose [Mass/Vol] 173 mg/dL High 65-99 [facility] Glucose [Mass/Vol] 279 mg/dL High 65-99 [facility] Glucose [Mass/Vol] 249 mg/dL High 65-99 [facility] MAGNESIUMon 11-14-2023 Magnesium [Mass/Vol] 2.1 mg/dL Normal 1.8-2.6 [facility] Comment on above: Performed By: #### 1 9123-9 ####[facility] ([id number])[address] [place] [address] Magnesium [Mass/Vol] mg/dL Critically low 1.8-2.6 [facility] Comment on above: Performed By: #### 1 9123-9 ####[facility] ([id number])[address], [address] [place] [address] Magnesium [Mass/Vol] 1.7 mg/dL Low 1.8-2.6 [facility] Comment on above: Performed By: #### C KENDALL CANALES, , 2777-1 ####[facility] ([id number])[address], [address], [place] [address] PHOSPHORUSon 11-14-2023 Phosphate [Mass/Vol] 3.6 mg/dL Normal 2.4-4.9 [facility] Comment on above: Performed By: #### C KENDALL CANALES, , 7-1 ####[facility] ([id number])[address], [address], [place] [address] BASIC METABOLIC PANLon 11-12 Anion gap [Moles/Vol] 10 mmol/L Normal 5-15 [facility] Comment on above: Performed By: #### C KENDALL CANALES, , 2777-1 ####[facility] ([id number])[address], [address], [place] [address] Calcium [Mass/Vol] 8.9 mg/dL Normal 8.5-10.5 [facility] Comment on above: Performed By: #### C KENDALL CANALES, , 2776-06 ####[facility] ([id number])[address] [address] Chloride [Moles/Vol] 98 mmol/L Normal 98-109 [facility] Comment on above: Performed By: #### Snehal CANALES, [facility], , 2776-06 ####[facility] ([id number])[address], [address] [address] CO2 [Moles/Vol] 27 mmol/L Normal 22-32 [facility] Comment on above: Performed By: #### KENDALL AHUJA, , 2776-06 ####[facility] ([id number])[address], [address] [place] [address] Creatinine [Mass/Vol] 1.47 mg/dL High 0.60-1.30 [facility] Comment on above: Result Comment: METH OD TRACEABLE TO IDMS STANDARD Performed By: #### KENDALL AHUJA, , 2776-06 ####[facility] ([id number])[address] [address] GFR/1.73 sq M.predicted among non-blacks MDRD (S/P/Bld) [Vol rate/Area] 55 mL/min/{1.73_m2} Low >59 [facility] Comment on above: Result Comment: Reported eGFR is based on the CKD-EPI 2020 equation that does not use a race coefficient. Performed By: #### KENDALL AHUJA, , 2776-06 ####[facility] ([id number])[address], [place] [address] Glucose [Mass/Vol] 164 mg/dL High 65-99 [facility] Comment on above: Performed By: #### C ALLY, [facility], , 2776-06 ####[facility] ([id number])[address], [place] [address] Potassium [Moles/Vol] 3.8 mmol/L Normal 3.5-5.0 [facility] Comment on above: Performed By: #### Snehal CANALES, [facility], , 2776-06 ####[facility] ([id number])[address], [place] [address] Sodium [Moles/Vol] 135 mmol/L Normal 134-146 [facility] Comment on above: Performed By: #### Snehal ACNALES, [facility], , 2776-06 ####[facility] ([id number])[address], [place] [address] Urea nitrogen [Mass/Vol] 26 mg/dL High 5-23 [facility] Comment on above: Performed By: #### Snehal CANALES, [facility], , 2776-06 ####[facility] ([id number])[address], [place] [address] COMPLETE BLOOD COUNTon 11-12 Erythrocyte distribution width (RBC) [Ratio] 23.2 % High 11.5-15.0 [facility] Comment on above: Performed By: #### Snehal CANALES, [facility], , 2776-06 ####[facility] ([id number])[address], [place] [address] Hematocrit (Bld) [Volume fraction] 24.7 % Low 39-49 [facility] Comment on above: Performed By: #### Snehal CANALES, BMP, , 2776-06 ####[facility] ([id number])[address], [place] [address] Hemoglobin (Bld) [Mass/Vol] 8.2 g/dL Low 13.0-17.0 [facility] Comment on above: Performed By: #### C ALLY, [facility], , 2776-06 ####[facility] ([id number])[address], [place] [address] MCH (RBC) [Entitic mass] 25.7 pg Low 27-34 [facility] Comment on above: Performed By: #### Snehal CANALES, [facility], , 2776-06 ####[facility] ([id number])[address], [place] [address] MCHC (RBC) [Mass/Vol] 33.4 g/dL Normal 32-36 [facility] [facility] Comment on above: Performed By: #### KENDALL AHUJA, , 2776-06 ####[facility] ([id number])[address], [place] [address] MCV (RBC) [Entitic vol] 77 fL Low 80-100 [facility] Comment on above: Performed By: #### Snehal CANALES [facility], , 2776-06 ####[facility] ([id number])[address], [place] [address] Platelet mean volume (Bld) [Entitic vol] 8.8 fL Normal 7-12 [facility] Comment on above: Performed By: #### Snehal CANALES, BMP, , 2776-06 ####[facility] ([id number])[address], [address], [place] [address] Platelets (Bld) [#/Vol] 207 10*3/uL Normal 150-450 [facility] Comment on above: Performed By: #### Snehal CANALES, BMP, , 2776-06 ####[facility] ([id number])[address], [address], [place] [address] RBC COUNT 3.21 X10E12/L Low 4.10-5.70 [facility] Comment on above: Performed By: #### KENDALL AHUJA, , 2776-06 ####[facility] ([id number])[address], [address] [place] [address] WBC (Bld) [#/Vol] 8.1 10*3/uL Normal 4.0-11.0 [facility] Comment on above: Performed By: #### KENDALL AHUJA, , 2776-06 ####[facility] ([id number])[address], [address] [place] [address] Glucose Glucometer (BldC) [M ass/Vol]on 11-13-2023 Glucose [Mass/Vol] 230 mg/dL High 65-99 [facility] Glucose [Mass/Vol] 225 mg/dL High 65-99 [facility] Glucose [Mass/Vol] 331 mg/dL High 65-99 [facility] Glucose [Mass/Vol] 190 mg/dL High 65-99 [facility] MAGNESIUMon 11-13-2023 Magnesium [Mass/Vol] 2.1 mg/dL Normal 1.8-2.6 [facility] Comment on above: Performed By: #### KENDALL AHUJA, , 2776-06 ####[facility] ([id number])[address], [address] [place] [address] PHOSPHORUSon 11-13-2023 Phosphate [Mass/Vol] 3.8 mg/dL Normal 2.4-4.9 [facility] Comment on above: Performed By: #### KENDALL AHUJA, , 2776-06 ####[facility] ([id number])[address], [address] [place] [address] BASIC METABOLIC PANLon 11-11 Anion gap [Moles/Vol] 11 mmol/L Normal 5-15 [facility] Comment on above: Performed By: #### C ALLY, BMP #### [facility] ([id number]) [address], [address] [place] [address] Calcium [Mass/Vol] 9.0 mg/dL Normal 8.5-10.5 [facility] Comment on above: Performed By: #### C ALLY, BMP #### [facility] ([id number]) [address], [address] [place] [address] Chloride [Moles/Vol] 98 mmol/L Normal 98-109 [facility] Comment on above: Performed By: #### C ALLY, BMP #### [facility] ([id number]) [address], [address] [place] [address] CO2 [Moles/Vol] 25 mmol/L Normal 22-32 [facility] Comment on above: Performed By: #### C ALLY, BMP #### [facility] ([id number]) [address], [address] [place] [address] Creatinine [Mass/Vol] 1.40 mg/dL High 0.60-1.30 [facility] Comment on above: Result Comment: METH OD TRACEABLE TO IDMS STANDARD Performed By: #### C ALLY, BMP #### [facility] ([id number]) [address], [address] [place] [address] GFR/1.73 sq M.predicted among non-blacks MDRD (S/P/Bld) [Vol rate/Area] 58 mL/min/{1.73_m2} Low >59 [facility] Comment on above: Result Comment: Reported eGFR is based on the CKD-EPI 2020 equation that does not use a race coefficient. Performed By: #### C ALLY, BMP #### [facility] ([id number]) [address], [address] [place] [address] Glucose [Mass/Vol] 194 mg/dL High 65-99 [facility] Comment on above: Performed By: #### C ALLY, BMP #### [facility] ([id number]) [address] [address] [place] [address] Potassium [Moles/Vol] 4.0 mmol/L Normal 3.5-5.0 [facility] Comment on above: Performed By: #### C ALLY, BMP #### [facility] ([id number]) [address], [address] [place] [address] Sodium [Moles/Vol] 134 mmol/L Normal 134-146 [facility] Comment on above: Performed By: #### C ALLY, BMP #### [facility] ([id number]) [address] [address] [place] [address] Urea nitrogen [Mass/Vol] 23 mg/dL Normal 5-23 [facility] Comment on above: Performed By: #### C ALLY, BMP #### [facility] ([id number]) [address], [address] [place] [address] COMPLETE BLOOD COUNTon 11-11 Erythrocyte distribution width (RBC) [Ratio] 24.1 % High 11.5-15.0 [facility] Comment on above: Performed By: #### C ALLY, BMP #### [facility] ([id number]) [address], [address] [place] [address] Hematocrit (Bld) [Volume fraction] 25.8 % Low 39-49 [facility] Comment on above: Performed By: #### C ALLY, BMP #### [facility] ([id number]) [address] [address] [place] [address] Hemoglobin (Bld) [Mass/Vol] 8.6 g/dL Low 13.0-17.0 [facility] Comment on above: Performed By: #### C ALLY, BMP #### [facility] ([id number]) [address] [address] [place] [address] MCH (RBC) [Entitic mass] 25.7 pg Low 27-34 [facility] Comment on above: Performed By: #### Snehal CANALES, BMP #### [facility] ([id number]) [address], [address] [place] [address] MCHC (RBC) [Mass/Vol] 33.5 g/dL Normal 32-36 [facility] Comment on above: Performed By: #### Snehal CANALES, BMP #### [facility] ([id number]) [address], [address] [place] [address] MCV (RBC) [Entitic vol] 77 fL Low 80-100 [facility] Comment on above: Performed By: #### Snehal CANALES, BMP #### [facility] ([id number]) [address], [address] [place] [address] Platelet mean volume (Bld) [Entitic vol] 9.2 fL Normal 7-12 [facility] Comment on above: Performed By: #### Snehal CANALES, BMP #### [facility] ([id number]) [address], [address] [place] [address] Platelets (Bld) [#/Vol] 185 10*3/uL Normal 150-450 [facility] Comment on above: Performed By: #### Snehal CANALES, BMP #### [facility] ([id number]) [address], [address] [place] [address] RBC COUNT 3.37 X10E12/L Low 4.10-5.70 [facility] Comment on above: Performed By: #### Snehal CANALES, BMP #### [facility] ([id number]) [address], [address] [place] [address] WBC (Bld) [#/Vol] 10.0 10*3/uL Normal 4.0-11.0 [facility] Comment on above: Performed By: #### Snehal CANALES, BMP #### [facility] ([id number]) [address], [address] [place] [address] Glucose Glucometer (BldC) [M ass/Vol]on 11-12-2023 Glucose [Mass/Vol] 230 mg/dL High 65-99 [facility] Glucose [Mass/Vol] 280 mg/dL High 65-99 [facility] Glucose [Mass/Vol] 268 mg/dL High 65-99 [facility] Glucose [Mass/Vol] 220 mg/dL High 65-99 [facility] Glucose [Mass/Vol] 205 mg/dL High 65-99 [facility] MAGNESIUMon 11-12-2023 Magnesium [Mass/Vol] 1.8 mg/dL Normal 1.8-2.6 [facility] Comment on above: Performed By: #### Snehal CANALES, BMP #### [facility] ([id number]) [address] [place] [address] PHOSPHORUSon 11-12-2023 Phosphate [Mass/Vol] 3.8 mg/dL Normal 2.4-4.9 [facility] Comment on above: Performed By: #### Snehal CANALES, BMP #### [facility] ([id number]) [address] [place] [address] BASIC METABOLIC PANLon 11-10 Anion gap [Moles/Vol] 8 mmol/L Normal 5-15 [facility] Comment on above: Performed By: #### Snehal CANALES, BMP #### [facility] ([id number]) [address], [address] [place] [address] Calcium [Mass/Vol] 8.7 mg/dL Normal 8.5-10.5 [facility] Comment on above: Performed By: #### Snehal CANALES, BMP #### [facility] ([id number]) [address], [address] [place] [address] Chloride [Moles/Vol] 99 mmol/L Normal 98-109 [facility] Comment on above: Performed By: #### C ALYL, BMP #### [facility] ([id number]) [address], [address] [place] [address] CO2 [Moles/Vol] 26 mmol/L Normal 22-32 [facility] Comment on above: Performed By: #### C ALLY, BMP #### [facility] ([id number]) [address] [place] [address] Creatinine [Mass/Vol] 1.45 mg/dL High 0.60-1.30 [facility] Comment on above: Result Comment: METH OD TRACEABLE TO IDMS STANDARD Performed By: #### C ALLY, BMP #### [facility] ([id number]) [address] [place] [address] GFR/1.73 sq M.predicted among non-blacks MDRD (S/P/Bld) [Vol rate/Area] 56 mL/min/{1.73_m2} Low >59 [facility] Comment on above: Result Comment: Reported eGFR is based on the CKD-EPI 2020 equation that does not use a race coefficient. Performed By: #### Snehal CANALES, BMP #### [facility] ([id number]) [address] [place] [address] Glucose [Mass/Vol] 153 mg/dL High 65-99 [facility] Comment on above: Performed By: #### C ALLY, BMP #### [facility] ([id number]) [address] [place] [address] Potassium [Moles/Vol] 3.9 mmol/L Normal 3.5-5.0 [facility] Comment on above: Performed By: #### C ALLY, BMP #### [facility] ([id number]) [address] [place] [address] Sodium [Moles/Vol] 133 mmol/L Low 134-146 [facility] Comment on above: Performed By: #### C ALLY, BMP #### [facility] ([id number]) [address], [address] [place] [address] Urea nitrogen [Mass/Vol] 27 mg/dL High 5-23 [facility] Comment on above: Performed By: #### C ALLY, BMP #### [facility] ([id number]) [address], [address] [place] [address] COMPLETE BLOOD COUNTon 11-10 Erythrocyte distribution width (RBC) [Ratio] 24.2 % High 11.5-15.0 [facility] Comment on above: Performed By: #### C ALLY, BMP #### [facility] ([id number]) [address], [address] [place] [address] Hematocrit (Bld) [Volume fraction] 25.1 % Low 39-49 [facility] Comment on above: Performed By: #### C ALLY, BMP #### [facility] ([id number]) [address], [address] [place] [address] Hemoglobin (Bld) [Mass/Vol] 8.2 g/dL Low 13.0-17.0 [facility] Comment on above: Performed By: #### C ALLY, BMP #### [facility] ([id number]) [address], [address] [place] [address] MCH (RBC) [Entitic mass] 25.5 pg Low 27-34 [facility] Comment on above: Performed By: #### C ALLY, BMP #### [facility] ([id number]) [address], [address] [place] [address] MCHC (RBC) [Mass/Vol] 32.7 g/dL Normal 32-36 [facility] Comment on above: Performed By: #### C ALLY, BMP #### [facility] ([id number]) [address] [place] [address] MCV (RBC) [Entitic vol] 78 fL Low 80-100 [facility] Comment on above: Performed By: #### Snehal CANALES, BMP #### [facility] ([id number]) [address], [address] [place] [address] Platelet mean volume (Bld) [Entitic vol] 9.0 fL Normal 7-12 [facility] Comment on above: Performed By: #### Snehal CANALES, BMP #### [facility] ([id number]) [address] [place] [address] Platelets (Bld) [#/Vol] 152 10*3/uL Normal 150-450 [facility] Comment on above: Performed By: #### Snehal CANALES, BMP #### [facility] ([id number]) [address], [address] [place] [address] RBC COUNT 3.22 X10E12/L Low 4.10-5.70 [facility] Comment on above: Performed By: #### Snehal CANALES, BMP #### [facility] ([id number]) [address], [address] [place] [address] WBC (Bld) [#/Vol] 9.8 10*3/uL Normal 4.0-11.0 [facility] Comment on above: Performed By: #### Snehal CANALES, BMP #### [facility] ([id number]) [address], [address] [place] [address] Glucose Glucometer (dC) [M ass/Vol]on 11-11-2023 Glucose [Mass/Vol] 184 mg/dL High 65-99 [facility] Glucose [Mass/Vol] 179 mg/dL High 65-99 [facility] Glucose [Mass/Vol] 222 mg/dL High 65-99 [facility] Glucose [Mass/Vol] 303 mg/dL High 65-99 [facility] MAGNESIUMon 11-11-2023 Magnesium [Mass/Vol] 2.4 mg/dL Normal 1.8-2.6 [facility] Comment on above: Performed By: #### Snehal CANALES, BMP #### [facility] ([id number]) [address] [place] [address] Magnesium [Mass/Vol] 1.9 mg/dL Normal 1.8-2.6 [facility] Comment on above: Performed By: #### Snehal CANALES, BMP #### [facility] ([id number]) [address], [address] [place] [address] PHOSPHORUSon 11-11-2023 Phosphate [Mass/Vol] 3.2 mg/dL Normal 2.4-4.9 [facility] Comment on above: Performed By: #### Snehal CANALES BMP #### [facility] ([id number]) [address] [place] [address] BASIC METABOLIC PANLon 11-09 Anion gap [Moles/Vol] 6 mmol/L Normal 5-15 [facility] Comment on above: Performed By: #### KENDALL AHUJA, , 7-1 ####[facility] ([id number])[address] [place] [address] Calcium [Mass/Vol] 8.5 mg/dL Normal 8.5-10.5 [facility] Comment on above: Performed By: #### KENDALL AHUJA, , 7-1 ####[facility] ([id number])[address] [place] [address] Chloride [Moles/Vol] 102 mmol/L Normal 98-109 [facility] Comment on above: Performed By: #### KENDALL AHUJA, , 2777- ####[facility] ([id number])[address] [address] [address] CO2 [Moles/Vol] 26 mmol/L Normal 22-32 [facility] Comment on above: Performed By: #### KENDALL AHUJA, , 2776-06 ####[facility] ([id number])[address], [place] [address] Creatinine [Mass/Vol] 1.59 mg/dL High 0.60-1.30 [facility] Comment on above: Result Comment: METH OD TRACEABLE TO IDMS STANDARD Performed By: #### C KENDALL CANALES, , 2776-06 ####[facility] ([id number])[address] [address] [address] GFR/1.73 sq M.predicted among non-blacks MDRD (S/P/Bld) [Vol rate/Area] 50 mL/min/{1.73_m2} Low >59 [facility] Comment on above: Result Comment: Reported eGFR is based on the CKD-EPI 2020 equation that does not use a race coefficient. Performed By: #### KENDALL AHUJA, , 2776-06 ####[facility] ([id number])[address] [address] [place] [address] Glucose [Mass/Vol] 145 mg/dL High 65-99 [facility] Comment on above: Performed By: #### KENDALL AHUJA, , 2776-06 ####[facility] ([id number])[address] [address] [address] Potassium [Moles/Vol] 3.9 mmol/L Normal 3.5-5.0 [facility] Comment on above: Performed By: #### KENDALL AHUJA, , 2776-06 ####[facility] ([id number])[address] [address], [place] [address] Sodium [Moles/Vol] 134 mmol/L Normal 134-146 [facility] Comment on above: Performed By: #### C BC, [facility], , 2776-06 ####[facility] ([id number])[address] [address] [place] [address] Urea nitrogen [Mass/Vol] 23 mg/dL Normal 5-23 [facility] Comment on above: Performed By: #### C BC, [facility], , 2776-06 ####[facility] ([id number])[address] [address] COMPLETE BLOOD COUNTon 11-09 Erythrocyte distribution width (RBC) [Ratio] 24.9 % High 11.5-15.0 [facility] Comment on above: Performed By: #### Snehal CANALES, [facility], , 2776-06 ####[facility] ([id number])[address] [address] Hematocrit (Bld) [Volume fraction] 24.5 % Low 39-49 [facility] Comment on above: Performed By: #### Snehal CANALES, [facility], , 2776-06 ####[facility] ([id number])[address] [address] Hemoglobin (Bld) [Mass/Vol] 7.9 g/dL Low 13.0-17.0 [facility] Comment on above: Performed By: #### Snehal BC, BMP, , 2776-06 ####[facility] ([id number])[address] [address] MCH (RBC) [Entitic mass] 25.4 pg Low 27-34 [facility] Comment on above: Performed By: #### C BC, BMP, , 2776-06 ####[facility] ([id number])[address] [address] MCHC (RBC) [Mass/Vol] 32.4 g/dL Normal 32-36 [facility] Comment on above: Performed By: #### KENDALL AHUJA, , 2776-06 ####[facility] ([id number])[address] [address] [address] MCV (RBC) [Entitic vol] 78 fL Low 80-100 [facility] Comment on above: Performed By: #### KENDALL AHUJA, , 2776-06 ####[facility] ([id number])[address], [place] [address] Platelet mean volume (Bld) [Entitic vol] 9.1 fL Normal 7-12 [facility] Comment on above: Performed By: #### KENDALL AHUJA, , 2776-06 ####[facility] ([id number])[address] [address] [place] [address] Platelets (Bld) [#/Vol] 142 10*3/uL Low 150-450 [facility] Comment on above: Performed By: #### KENDALL AHUJA, , 2776-06 ####[facility] ([id number])[address] [address], [place] [address] RBC COUNT 3.14 X10E12/L Low 4.10-5.70 [facility] Comment on above: Performed By: #### KENDALL AHUJA, , 2776-06 ####[facility] ([id number])[address] [place] [address] WBC (Bld) [#/Vol] 9.7 10*3/uL Normal 4.0-11.0 [facility] Comment on above: Performed By: #### KENDALL AHUJA, , 2776-06 ####[facility] ([id number])[address], [place] [address] Glucose Glucometer (BldC) [M ass/Vol]on 11-10-2023 Glucose [Mass/Vol] 168 mg/dL High 65-99 [facility] Glucose [Mass/Vol] 245 mg/dL High 65-99 [facility] Glucose [Mass/Vol] 155 mg/dL High 65-99 [facility] Glucose [Mass/Vol] 153 mg/dL High 65-99 [facility] MAGNESIUMon 11-10-2023 Magnesium [Mass/Vol] 2.2 mg/dL Normal 1.8-2.6 [facility] Comment on above: Performed By: #### Snehal CANALES, BMP #### [facility] ([id number]) [address] [place] [address] Magnesium [Mass/Vol] 1.8 mg/dL Normal 1.8-2.6 [facility] Comment on above: Performed By: #### Snehal CANALES, KENDALL, , 1 ####[facility] ([id number])[address], [place] [address] PHOSPHORUSon 11-10-2023 Phosphate [Mass/Vol] 3.1 mg/dL Normal 2.4-4.9 [facility] Comment on above: Performed By: #### Snehal CANALES, KENDALL, , 1 ####[facility] ([id number])[address] [address] BASIC METABOLIC PANLon 11-08 Anion gap [Moles/Vol] 9 mmol/L Normal 5-15 [facility] Comment on above: Performed By: #### Snehal CANALES, 2639-3, BMP, 2156-6, , 2776-1 ####[facility] ([id number])[address] [place] [address], [place] [address] Calcium [Mass/Vol] 8.4 mg/dL Low 8.5-10.5 [facility] Comment on above: Performed By: #### C BC, 2639-3, BMP, 2156-6, , 2776- ####[facility] ([id number])[address] [place] [address] Chloride [Moles/Vol] 104 mmol/L Normal 98-109 [facility] Comment on above: Performed By: #### C BC, 2639-3, BMP, 2156-6, , 2776- ####[facility] ([id number])[address], [address] [place] [address] CO2 [Moles/Vol] 25 mmol/L Normal 22-32 [facility] Comment on above: Performed By: #### C BC, 2639-3, BMP, 2156-6, , 1 ####[facility] ([id number])[address], [address] [place] [address] Creatinine [Mass/Vol] 1.35 mg/dL High 0.60-1.30 [facility] Comment on above: Result Comment: METH OD TRACEABLE TO IDMS STANDARD Performed By: #### C BC, 2639-3, BMP, 2156-6, , 1 ####[facility] ([id number])[address] [address] GFR/1.73 sq M.predicted among non-blacks MDRD (S/P/Bld) [Vol rate/Area] 61 mL/min/{1.73_m2} Normal >59 [facility] Comment on above: Result Comment: Reported eGFR is based on the CKD-EPI 2020 equation that does not use a race coefficient. Performed By: #### C BC, 2639-3, BMP, 2156-6, 79697-6, 2776-1 ####[facility] ([id number])[address], [address], [place] [address] Glucose [Mass/Vol] 217 mg/dL High 65-99 [facility] Comment on above: Performed By: #### C ALLY, 2639-3, BMP, 2156-, , 2776-1 ####[facility] ([id number])[address], [address], [place] [address] Potassium [Moles/Vol] 4.2 mmol/L Normal 3.5-5.0 [facility] Comment on above: Performed By: #### C ALLY, 2639-3, BMP, 2156-11, , 2776-1 ####[facility] ([id number])[address], [address], [place] [address] Sodium [Moles/Vol] 138 mmol/L Normal 134-146 [facility] Comment on above: Performed By: #### C ALLY, 2639-3, BMP, 2156-11, , 1 ####[facility] ([id number])[address], [place] [address] Urea nitrogen [Mass/Vol] 23 mg/dL Normal 5-23 [facility] Comment on above: Performed By: #### C ALLY, 2639-3, BMP, 2156-11, , 2776-1 ####[facility] ([id number])[address], [place] [address] CK [Catalytic activity/Vol]o n 11-09-2023 CPK 44 U/L Normal 24-195 [facility] Comment on above: Performed By: #### 2 157-6, 9-3 ####[facility] ([id number])[address], [address], [place] [address] CPK 30 U/L Normal 24-195 [facility] Comment on above: Performed By: #### C BC, 2639-3, BMP, 2156-6, , 1 ####[facility] ([id number])[address], [address] [place] [address] COMPLETE BLOOD COUNTon 11-08 Erythrocyte distribution width (RBC) [Ratio] 24.9 % High 11.5-15.0 [facility] Comment on above: Performed By: #### C BC, 2639-3, BMP, 2156-6, , 2776-06 ####[facility] ([id number])[address], [address] [place] [address] Hematocrit (Bld) [Volume fraction] 26.8 % Low 39-49 [facility] Comment on above: Performed By: #### Snehal BC, 2639-3, BMP, 2156-11, , 2776-06 ####[facility] ([id number])[address], [address] [place] [address] Hemoglobin (Bld) [Mass/Vol] 8.7 g/dL Low 13.0-17.0 [facility] Comment on above: Performed By: #### C ALLY, 2639-3, BMP, 2156-11, , 1 ####[facility] ([id number])[address], [address] [place] [address]71 MCH (RBC) [Entitic mass] 24.8 pg Low 27-34 [facility] Comment on above: Performed By: #### C BC, 2639-3, BMP, 2156-, , 1 ####[facility] ([id number])[address], [address] [place] [address]30 MCHC (RBC) [Mass/Vol] 32.6 g/dL Normal 32-36 [facility] Comment on above: Performed By: #### C BC, 2639-3, BMP, 2156-11, , 2776-06 ####[facility] ([id number])[address], [address] [place] [address] 39666 MCV (RBC) [Entitic vol] 76 fL Low 80-100 [facility] Comment on above: Performed By: #### Snehal CANALES, 2639-3, BMP, 2156-6, , 2776- ####[facility] ([id number])[address], [address] [place] [address] 58796 Platelet mean volume (Bld) [Entitic vol] 9.3 fL Normal 7-12 [facility] Comment on above: Performed By: #### Snehal CANALES, 2639-3, BMP, 2156-, , 2776-06 ####[facility] ([id number])[address] [address] [place] [address] Platelets (Bld) [#/Vol] 184 10*3/uL Normal 150-450 [facility] Comment on above: Performed By: #### Snehal CANALES, 2639-3, BMP, 2156-11, , 2776-06 ####[facility] ([id number])[address] [address] [place] [address]86 RBC COUNT 3.53 X10E12/L Low 4.10-5.70 [facility] Comment on above: Performed By: #### Snehal CANALES, 2639-3, BMP, 2156-11, , 2776- ####[facility] ([id number])[address] [address] [place] [address] 22340 WBC (Bld) [#/Vol] 11.0 10*3/uL Normal 4.0-11.0 [facility] Comment on above: Performed By: #### Snehal CANALES, 2639-3, BMP, 2156-, , 2776- ####[facility] ([id number])[address], [address], [place] [address] Glucose Glucometer (BldC) [M ass/Vol]on 11-09-2023 Glucose [Mass/Vol] 243 mg/dL High 65-99 [facility] Glucose [Mass/Vol] 184 mg/dL High 65-99 [facility] Glucose [Mass/Vol] 199 mg/dL High 65-99 [facility] Glucose [Mass/Vol] 218 mg/dL High 65-99 [facility] Heparin unfractionated Chrom ogenic method Qn (PPP)on 11-09-2023 ANTI XA UFH 0.15 IU/mL Low 0.30-0.70 [facility] Comment on above: Result Comment: Opti mal time for testing is 6 hrs post dosage This test is specific for monitoring patients on UFH, and is not recommended for use with other Anti-Xa medications. Performed By: #### 3 274-8 ####[facility] ([id number])[address], [address] [place] [address] MAGNESIUMon 11-09-2023 Magnesium [Mass/Vol] 2.2 mg/dL Normal 1.8-2.6 [facility] Comment on above: Performed By: #### C BC, 2639-3, BMP, 2157-6, 63920-0, 2777-1 ####[facility] ([id number])[address], [address] [place] [address] 05795 Myoglobin [Mass/Vol]on 11-08 SERUM MYOGLOBIN 97.7 ng/mL Normal 17.4-105.7 [facility] Comment on above: Performed By: #### 2 157-6, 2639-3 ####[facility] ([id number])[address], [address] [address] SERUM MYOGLOBIN 51.7 ng/mL Normal 17.4-105.7 [facility] Comment on above: Performed By: #### C BC, 2639-3, BMP, 2156-6, 91711-9, 2777-1 ####[facility] ([id number])[address], [address], [place] [address] PHOSPHORUSon 11-09-2023 Phosphate [Mass/Vol] 4.4 mg/dL Normal 2.4-4.9 [facility] Comment on above: Performed By: #### C BC, 2639-3, BMP, 2156-11, , 2776-1 ####[facility] ([id number])[address] [place] [address] BASIC METABOLIC PANLon 11-07 Anion gap [Moles/Vol] 9 mmol/L Normal 5-15 [facility] Comment on above: Performed By: #### P INR #### [facility] ([id number]) [address], [address] [place] [address] Calcium [Mass/Vol] 8.4 mg/dL Low 8.5-10.5 [facility] Comment on above: Performed By: #### P INR #### [facility] ([id number]) [address], [address] [place] [address] Chloride [Moles/Vol] 106 mmol/L Normal 98-109 [facility] Comment on above: Performed By: #### P INR #### [facility] ([id number]) [address], [address] [place] [address] CO2 [Moles/Vol] 24 mmol/L Normal 22-32 [facility] Comment on above: Performed By: #### P INR #### [facility] ([id number]) [address], [address] [place] [address] Creatinine [Mass/Vol] 1.30 mg/dL Normal 0.60-1.30 [facility] Comment on above: Result Comment: METH OD TRACEABLE TO IDMS STANDARD Performed By: #### P INR #### [facility] ([id number]) [address], [address] [place] [address] GFR/1.73 sq M.predicted among non-blacks MDRD (S/P/Bld) [Vol rate/Area] 64 mL/min/{1.73_m2} Normal >59 [facility] Comment on above: Result Comment: Reported eGFR is based on the CKD-EPI 2020 equation that does not use a race coefficient. Performed By: #### P INR #### [facility] ([id number]) [address], [address] [place] [address] Glucose [Mass/Vol] 163 mg/dL High 65-99 [facility] Comment on above: Performed By: #### P INR #### [facility] ([id number]) [address], [address] [place] [address] Potassium [Moles/Vol] 4.1 mmol/L Normal 3.5-5.0 [facility] Comment on above: Performed By: #### P INR #### [facility] ([id number]) [address], [address] [place] [address] Sodium [Moles/Vol] 139 mmol/L Normal 134-146 [facility] Comment on above: Performed By: #### P INR #### [facility] ([id number]) [address], [address] [place] [address] Urea nitrogen [Mass/Vol] 23 mg/dL Normal 5-23 [facility] Comment on above: Performed By: #### P INR #### [facility] ([id number]) [address], [address] [place] [address] Anion gap [Moles/Vol] 9 mmol/L Normal 5-15 [facility] Comment on above: Performed By: #### C BC, BMP #### [facility] ([id number]) [address], [address] [place] [address] Calcium [Mass/Vol] 8.8 mg/dL Normal 8.5-10.5 [facility] Comment on above: Performed By: #### C ALLY, BMP #### [facility] ([id number]) [address], [address] [place] [address] Chloride [Moles/Vol] 104 mmol/L Normal 98-109 [facility] Comment on above: Performed By: #### C ALLY, BMP #### [facility] ([id number]) [address] [address] [place] [address] CO2 [Moles/Vol] 25 mmol/L Normal 22-32 [facility] Comment on above: Performed By: #### C ALLY, BMP #### [facility] ([id number]) [address] [address] [place] [address] Creatinine [Mass/Vol] 1.70 mg/dL High 0.60-1.30 [facility] Comment on above: Result Comment: METH OD TRACEABLE TO IDMS STANDARD Performed By: #### Snehal CANALES, BMP #### [facility] ([id number]) [address], [address] [place] [address] GFR/1.73 sq M.predicted among non-blacks MDRD (S/P/Bld) [Vol rate/Area] 46 mL/min/{1.73_m2} Low >59 [facility] Comment on above: Result Comment: Reported eGFR is based on the CKD-EPI 2020 equation that does not use a race coefficient. Performed By: #### C ALLY, BMP #### [facility] ([id number]) [address] [address] [place] [address] Glucose [Mass/Vol] 111 mg/dL High 65-99 [facility] Comment on above: Performed By: #### Snehal CANALES, BMP #### [facility] ([id number]) [address], [address] [place] [address] Potassium [Moles/Vol] 3.8 mmol/L Normal 3.5-5.0 [facility] Comment on above: Performed By: #### C BC, BMP #### [facility] ([id number]) [address], [address] [place] [address] Sodium [Moles/Vol] 138 mmol/L Normal 134-146 [facility] Comment on above: Performed By: #### C BC, BMP #### [facility] ([id number]) [address] [place] [address] Urea nitrogen [Mass/Vol] 28 mg/dL High 5-23 [facility] Comment on above: Performed By: #### C BC, BMP #### [facility] ([id number]) [address], [address] [place] [address] CK [Catalytic activity/Vol]o n 11-08-2023 CPK 26 U/L Normal 24-195 [facility] Comment on above: Performed By: #### P INR #### [facility] ([id number]) [address] [place] [address] COMPLETE BLOOD COUNTon 11-07 Erythrocyte distribution width (RBC) [Ratio] 24.8 % High 11.5-15.0 [facility] Comment on above: Performed By: #### P INR #### [facility] ([id number]) [address] [place] [address] Hematocrit (Bld) [Volume fraction] 29.3 % Low 39-49 [facility] Comment on above: Performed By: #### P INR #### [facility] ([id number]) [address], [address] [place] [address] Hemoglobin (Bld) [Mass/Vol] 9.6 g/dL Low 13.0-17.0 [facility] Comment on above: Performed By: #### P INR #### [facility] ([id number]) [address], [address] [place] [address] MCH (RBC) [Entitic mass] 24.9 pg Low 27-34 [facility] Comment on above: Performed By: #### P INR #### [facility] ([id number]) [address], [address] [place] [address] MCHC (RBC) [Mass/Vol] 32.7 g/dL Normal 32-36 [facility] Comment on above: Performed By: #### P INR #### [facility] ([id number]) [address], [address] [place] [address] MCV (RBC) [Entitic vol] 76 fL Low 80-100 [facility] Comment on above: Performed By: #### P INR #### [facility] ([id number]) [address], [address] [place] [address] Platelet mean volume (Bld) [Entitic vol] 8.7 fL Normal 7-12 [facility] Comment on above: Performed By: #### P INR #### [facility] ([id number]) [address], [address] [place] [address] Platelets (Bld) [#/Vol] 169 10*3/uL Normal 150-450 [facility] Comment on above: Performed By: #### P INR #### [facility] ([id number]) [address], [address] [place] [address] RBC COUNT 3.85 X10E12/L Low 4.10-5.70 [facility] Comment on above: Performed By: #### P INR #### [facility] ([id number]) [address], [address] [place] [address] WBC (Bld) [#/Vol] 13.5 10*3/uL High 4.0-11.0 [facility] Comment on above: Performed By: #### P INR #### [facility] ([id number]) [address], [address] [place] [address] Erythrocyte distribution width (RBC) [Ratio] 25.2 % High 11.5-15.0 [facility] Comment on above: Performed By: #### C BC, BMP #### [facility] ([id number]) [address], [address] [place] [address] Hematocrit (Bld) [Volume fraction] 33.0 % Low 39-49 [facility] Comment on above: Performed By: #### C BC, BMP #### [facility] ([id number]) [address], [address] [place] [address] Hemoglobin (Bld) [Mass/Vol] 10.8 g/dL Low 13.0-17.0 [facility] Comment on above: Performed By: #### C BC, BMP #### [facility] ([id number]) [address], [address] [place] [address] MCH (RBC) [Entitic mass] 25.0 pg Low 27-34 [facility] Comment on above: Performed By: #### C BC, BMP #### [facility] ([id number]) [address], [address] [place] [address] MCHC (RBC) [Mass/Vol] 32.8 g/dL Normal 32-36 [facility] Comment on above: Performed By: #### C BC, BMP #### [facility] ([id number]) [address] [place] [address] MCV (RBC) [Entitic vol] 76 fL Low 80-100 [facility] Comment on above: Performed By: #### C BC, BMP #### [facility] ([id number]) [address], [address] [place] [address] Platelet mean volume (Bld) [Entitic vol] 8.8 fL Normal 7-12 [facility] Comment on above: Performed By: #### C ALLY, BMP #### [facility] ([id number]) [address], [address] [place] [address] Platelets (Bld) [#/Vol] 172 10*3/uL Normal 150-450 [facility] Comment on above: Performed By: #### C ALLY, BMP #### [facility] ([id number]) [address], [address] [place] [address] RBC COUNT 4.33 X10E12/L Normal 4.10-5.70 [facility] Comment on above: Performed By: #### C ALLY, BMP #### [facility] ([id number]) [address], [address] [place] [address] WBC (Bld) [#/Vol] 9.3 10*3/uL Normal 4.0-11.0 [facility] Comment on above: Performed By: #### C ALLY, BMP #### [facility] ([id number]) [address], [address] [place] [address] Glucose Glucometer (dC) [M ass/Vol]on 11-08-2023 Glucose [Mass/Vol] 162 mg/dL High 65-99 [facility] Glucose [Mass/Vol] 96 mg/dL Normal 65-99 [facility] Glucose [Mass/Vol] 142 mg/dL High 65-99 [facility] Glucose [Mass/Vol] 114 mg/dL High 65-99 [facility] Lactate (P ekaterina) [Moles/Vol]o n 11-08-2023 LACTATE W/REFLEX 1.0 mmol/L Normal 0.4-2.0 [facility] Comment on above: Result Comment: Result did not trigger repeat Lactate, re-order if needed. Performed By: #### P INR #### [facility] ([id number]) [address], [address] [place] [address] MAGNESIUMon 11-08-2023 Magnesium [Mass/Vol] 1.7 mg/dL Low 1.8-2.6 [facility] Comment on above: Performed By: #### P INR #### [facility] ([id number]) [address], [address] [place] [address] Myoglobin [Mass/Vol]on 11-07 SERUM MYOGLOBIN 33.1 ng/mL Normal 17.4-105.7 [facility] Comment on above: Performed By: #### P INR #### [facility] ([id number]) [address], [address] [place] [address] PHOSPHORUSon 11-08-2023 Phosphate [Mass/Vol] 4.0 mg/dL Normal 2.4-4.9 [facility] Comment on above: Performed By: #### P INR #### [facility] ([id number]) [address] [address] [place] [address] PROTIME AND INRon 11-08-2023 INR Coag (PPP) [Relative time] 1.3 {INR} High 0.8-1.1 [facility] Comment on above: Performed By: #### P INR #### [facility] ([id number]) [address], [address] [place] [address] PT Coag (PPP) [Time] 14.7 s High 9.8-13.2 [facility] Comment on above: Performed By: #### P INR #### [facility] ([id number]) [address], [address] [place] [address] RAPID CARDIACon 11-08-2023 COURTNEY'S TEST Normal [facility] Comment on above: Performed By: #### A FAB5 #### [facility] ([id number]) [address] [place] [address] Base excess Calc (Bld) [Moles/Vol] 0.1 mmol/L Normal 0.0-2.0 [facility] Comment on above: Performed By: #### A FAB5 #### [facility] ([id number]) [address] [place] [address] Body temperature 98.6 [degF] Normal 37.0 [facility] Comment on above: Performed By: #### A FAB5 #### [facility] ([id number]) [address] [place] [address] Glucose [Mass/Vol] 117 mg/dL High 65-99 [facility] Comment on above: Performed By: #### A FAB5 #### [facility] ([id number]) [address] [place] [address] HCO3 (Bld) [Moles/Vol] 24.8 mmol/L Normal 22-26 [facility] Comment on above: Performed By: #### A FAB5 #### [facility] ([id number]) [address] [place] [address] Hematocrit (Bld) [Volume fraction] 31 % Low 39-49 [facility] Comment on above: Performed By: #### A FAB5 #### [facility] ([id number]) [address] [place] [address] Hemoglobin (Bld) [Mass/Vol] 10.2 g/dL Low 13.0-17.0 [facility] Comment on above: Performed By: #### A FAB5 #### [facility] ([id number]) [address] [place] [address] INSP. O2 CONC. 100 % Normal [facility] Comment on above: Performed By: #### A FAB5 #### [facility] ([id number]) [address] [place] [address] IONIZED CALCIUM 4.8 mg/dL Normal 4.5-5.3 [facility] Comment on above: Performed By: #### A FAB5 #### [facility] ([id number]) [address] [place] [address] Oxygen (Bld) [Partial pressure] 167 mm[Hg] High 80-100 [facility] Comment on above: Performed By: #### A FAB5 #### [facility] ([id number]) [address] [place] [address] Oxygen saturation in Blood 100.8 % Normal >90 [facility] Comment on above: Performed By: #### A FAB5 #### [facility] ([id number]) [address] [place] [address] PCO2 39.7 MMHG Normal 35-45 [facility] Comment on above: Performed By: #### A FAB5 #### [facility] ([id number]) [address] [place] [address] pH (Bld) 7.404 [pH] Normal 7.350-7.45 0 [facility] Comment on above: Performed By: #### A FAB5 #### [facility] ([id number]) [address] [place] [address] Potassium [Moles/Vol] 3.8 mmol/L Normal 3.5-5.0 [facility] Comment on above: Performed By: #### A FAB5 #### [facility] ([id number]) [address] [place] [address] SAMPLE SITE KECIA Normal [facility] Comment on above: Performed By: #### A FAB5 #### [facility] ([id number]) [address] [place] [address] SAMPLE TYPE Arterial Normal [facility] Comment on above: Performed By: #### A FAB5 #### [facility] ([id number]) [address] [place] [address] RAPID CARDIAC W/ NAon 2023 COURTNEY'S TEST Normal [facility] Comment on above: Performed By: #### P INR #### [facility] ([id number]) [address] [place] [address] Base excess Calc (Bld) [Moles/Vol] 0.2 mmol/L Normal 0.0-2.0 [facility] Comment on above: Performed By: #### P INR #### [facility] ([id number]) [address] [place] [address] Body temperature 98.6 [degF] Normal 37.0 [facility] Comment on above: Performed By: #### P INR #### [facility] ([id number]) [address] [place] [address] Glucose [Mass/Vol] 125 mg/dL High 65-99 [facility] Comment on above: Performed By: #### P INR #### [facility] ([id number]) [address] [place] [address] HCO3 (Bld) [Moles/Vol] 25.3 mmol/L Normal 22-26 [facility] Comment on above: Performed By: #### P INR #### [facility] ([id number]) [address] [place] [address] Hematocrit (Bld) [Volume fraction] 31 % Low 39-49 [facility] Comment on above: Performed By: #### P INR #### [facility] ([id number]) [address] [place] [address] Hemoglobin (Bld) [Mass/Vol] 10.0 g/dL Low 13.0-17.0 [facility] Comment on above: Performed By: #### P INR #### [facility] ([id number]) [address], [address] [place] [address] INSP. O2 CONC. 50 % Normal [facility] Comment on above: Performed By: #### P INR #### [facility] ([id number]) [address] [place] [address] IONIZED CALCIUM 4.7 mg/dL Normal 4.5-5.3 [facility] Comment on above: Performed By: #### P INR #### [facility] ([id number]) [address] [place] [address] Oxygen (Bld) [Partial pressure] 131 mm[Hg] High 80-100 [facility] Comment on above: Performed By: #### P INR #### [facility] ([id number]) [address] [place] [address] Oxygen saturation in Blood 99.9 % Normal >90 [facility] Comment on above: Performed By: #### P INR #### [facility] ([id number]) [address] [place] [address] PCO2 42.7 MMHG Normal 35-45 [facility] Comment on above: Performed By: #### P INR #### [facility] ([id number]) [address] [place] [address] pH (Bld) 7.381 [pH] Normal 7.350-7.45 0 [facility] Comment on above: Performed By: #### P INR #### [facility] ([id number]) [address] [place] [address] Potassium [Moles/Vol] 3.7 mmol/L Normal 3.5-5.0 [facility] Comment on above: Performed By: #### P INR #### [facility] ([id number]) [address] [place] [address] SAMPLE SITE KECIA Normal [facility] Comment on above: Performed By: #### P INR #### [facility] ([id number]) [address] [place] [address] SAMPLE TYPE Arterial Normal [facility] Comment on above: Performed By: #### P INR #### [facility] ([id number]) [address], [address] [place] [address] Sodium [Moles/Vol] 139 mmol/L Normal 134-146 [facility] Comment on above: Performed By: #### P INR #### [facility] ([id number]) [address], [address] [place] [address] aPTT Coag (PPP) [Time]on aPTT Coag (Bld) [Time] 30 s Normal 26-37 [facility] Comment on above: Performed By: #### P INR #### [facility] ([id number]) [address], [address] [place] [address] Glucose Glucometer (BldC) [M ass/Vol]on 11-07-2023 Glucose [Mass/Vol] 150 mg/dL High 65-99 [facility] Glucose [Mass/Vol] 58 mg/dL Low 65-99 [facility] POC [id number] 11-07-2023 Chloride [Moles/Vol] 98 mmol/L Normal 98-109 [facility] Comment on above: Performed By: #### I ELGBC #### [facility] ([id number]) [address] [place] [address] CO2 [Moles/Vol] 31 mmol/L Normal 22-32 [facility] Comment on above: Performed By: #### I ELGBC #### [facility] ([id number]) [address] [place] [address] Creatinine [Mass/Vol] 1.9 mg/dL High 0.7-1.2 [facility] Comment on above: Result Comment: METH OD TRACEABLE TO IDMS STANDARD Performed By: #### I [facility] #### [facility] ([id number]) [address] [place] [address] GFR/1.73 sq M.predicted among non-blacks MDRD (S/P/Bld) [Vol rate/Area] 40 mL/min/{1.73_m2} Low >59 [facility] Comment on above: Result Comment: Reported eGFR is based on the CKD-EPI 2020 equation that does not use a race coefficient. Performed By: #### I [facility] #### [facility] ([id number]) [address] [place] [address] Glucose [Mass/Vol] 72 mg/dL Normal 65-99 [facility] Comment on above: Performed By: #### I [facility] #### [facility] [facility] ([id number]) [address] [place] [address] Potassium [Moles/Vol] 3.6 mmol/L Normal 3.5-5.0 [facility] Comment on above: Performed By: #### I [facility] #### [facility] ([id number]) [address] [place] [address] Sodium [Moles/Vol] 139 mmol/L Normal 134-146 [facility] Comment on above: Performed By: #### I [facility] #### [facility] ([id number]) [address] [place] [address] Urea nitrogen [Mass/Vol] 31 mg/dL High 6-23 [facility] Comment on above: Performed By: #### I [facility] #### [facility] ([id number]) [address] [place] [address] PROTIME AND INRon 11-07-2023 INR Coag (PPP) [Relative time] 1.3 {INR} High 0.8-1.1 [facility] Comment on above: Performed By: #### P INR #### [facility] ([id number]) [address], [address] [place] [address] PT Coag (PPP) [Time] 14.5 s High 9.8-13.2 [facility] Comment on above: Performed By: #### P INR #### [facility] ([id number]) [address], [address] [place] [address] ECG 12 Leadon 10-24-2023 [facility] Work Phone: Consent for Treatmenton 10-04 Consent for Treatment [id number]#1.00TIFF Normal [facility] Heart and Vascular Office/Cl inic Noteon [...] lower 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 Normal [facility] Comment on above: Result Comment: Elec [...] MD Transcribed by: HASEEB Technologist: TARAN Camarillo [facility] CHEMISTRYOrdered By: SYSTEM SYSTEM on 10-19-2023 [...] 370 Contrast amount in ml's: 150 Normal [facility] Consent for Treatmenton 10-03 Consent for Treatment [id number]#1.00TIFF Normal [facility] Creatinineon 10-19-2023 Creatinine [Mass/Vol] 1.6 mg/dL High 0.5-1.3 [facility] Comment on above: Performed By: #### [id number] #### [facility] [address] [place] [address] Physician Orderon 10-19-2023 Physician Order [id number]#1.00TIFF Normal [facility] eGFRon 10-19-2023 eGFR 50 mL/min/1.73 m2 Low >=59 [facility] Comment on above: Order Comment: Order added by Discern Expert. Performed By: #### 1 [id number] #### [facility] [address] [place] [address] Outside Progress Noteon 10-03 Outside Progress Note [id number]#1.00TIFF Normal [facility] Physician Orderon 10-18-2023 Physician Order [id number]#1.00TIF F Normal [facility] Physician Order [id number]#1.00TIFF Normal [facility] Basophils Auto (Bld) [#/Vol] on 10-06-2023 Basophils (Bld) [#/Vol] 0.0 10 3/uL 0.0-0.1 [facility] Basophils/100 WBC Auto (Bld) on 10-06-2023 Basophils/100 WBC (Bld) 0.3 % 0.2-2.0 [facility] Eosinophils/100 WBC Auto (Bl d)on 10-06-2023 Eosinophils/100 WBC (Bld) 1.9 % 0.9-7.0 [facility] Erythrocyte distribution wid th Auto (RBC) [Ratio]on 10-06-2023 Erythrocyte distribution width (RBC) [Ratio] 19.9 % High 11.0-15.0 [facility] Estimated glomerular filtrat ion rate (GFR) non- Americanon 10-06-2023 GFR/1.73 sq M.predicted among non-blacks MDRD (S/P/Bld) [Vol rate/Area] 42 mL/min/{1.73_m2} Low >=60 [facility] Globulin Calc (S) [Mass/Vol] on 10-06-2023 Globulin (S) [Mass/Vol] 4.3 g/dL [facility] Hematocrit Auto (Bld) [Volum e fraction]on 10-06-2023 Hematocrit (Bld) [Volume fraction] 28.3 % Low 42.0-54.0 [facility] Hemoglobin [Mass/volume] in Bloodon 10-06-2023 Hemoglobin (Bld) [Mass/Vol] 8.4 g/dL Low 14.0-18.0 [facility] Laboratory - Chemistry and C hemistry - challengeon 10-06-2023 Albumin [Mass/Vol] 2.1 g/dL Low 3.4-5.0 [facility] ALP [Catalytic activity/Vol] 133 U/L High 46-116 [facility] ALT [Catalytic activity/Vol] 18 U/L 16-63 [facility] AST [Catalytic activity/Vol] 20 U/L 15-37 [facility] Bilirubin [Mass/Vol] 0.3 mg/dL 0.2-1.0 [facility] Calcium [Mass/Vol] 9.4 mg/dL 8.5-10.1 [facility] Chloride [Moles/Vol] 103 mmol/L 98-107 [facility] CO2 [Moles/Vol] 23.7 mmol/L 21.0-32.0 [facility] Creatinine [Mass/Vol] 1.67 mg/dL High 0.70-1.30 [facility] GFR/1.73 sq M.predicted MDRD (S/P/Bld) [Vol rate/Area] 52 mL/min/{1.73_m2} Low >=60 [facility] Glucose [Mass/Vol] 91 mg/dL 74-106 [facility] Magnesium [Mass/Vol] 1.6 mg/dL Low 1.8-2.4 [facility] Potassium [Moles/Vol] 4.8 mmol/L 3.5-5.1 [facility] Protein [Mass/Vol] 6.4 g/dL 6.4-8.2 [facility] Sodium [Moles/Vol] 136 mmol/L 136-145 [facility] Urea nitrogen [Mass/Vol] 29.0 mg/dL High 7.0-18.0 [facility] Urea nitrogen/Creatinine [Mass ratio] 17.4 mg/mg [facility] Laboratory - Hematology and Cell countson 10-06-2023 ESR (Bld) [Velocity] mm/h High <=20 [facility] Immature granulocytes/100 WBC (Bld) 1.5 % High 0.0-0.5 [facility] Leukocytes [#/volume] correc jorge for nucleated erythrocytes in Blood by Automated counon 10-06-2023 WBC corrected for nucl RBC Auto (Bld) [#/Vol] 11.6 10 3/uL High 4.0-11.0 [facility] Lymphocytes Auto (Bld) [#/Vo l]on 10-06-2023 Lymphocytes (Bld) [#/Vol] 1.5 10 3/uL 1.2-3.8 [facility] Lymphocytes/100 WBC Auto (Bl d)on 10-06-2023 Lymphocytes/100 WBC (Bld) 12.9 % Low 20.5-60.0 [facility] MCH Auto (RBC) [Entitic mass ]on 10-06-2023 MCH (RBC) [Entitic mass] 22.5 pg Low 25.9-34.0 [facility] MCHC Auto (RBC) [Mass/Vol]on 10-06-2023 MCHC (RBC) [Mass/Vol] 29.7 g/dL Low 29.9-35.2 [facility] MCV Auto (RBC) [Entitic vol] on 10-06-2023 MCV (RBC) [Entitic vol] 75.9 fL Low 80.0-94.0 [facility] Monocytes Auto (Bld) [#/Vol] on 10-06-2023 Monocytes (Bld) [#/Vol] 1.3 10 3/uL High 0.3-0.8 [facility] Monocytes/100 WBC Auto (Bld) on 10-06-2023 Monocytes/100 WBC (Bld) 10.9 % 1.7-12.0 [facility] Neutrophils Auto (Bld) [#/Vo l]on 10-06-2023 Neutrophils (Bld) [#/Vol] 8.4 10 3/uL High 1.4-6.5 [facility] Neutrophils/100 WBC Auto (Bl d)on 10-06-2023 Neutrophils/100 WBC (Bld) 72.5 % 43.0-75.0 [facility] No Panel Informationon 10-05 Eosinophils # (Auto) 0.2 10 3/uL 0.0-0.7 [facility] Immature Granulocyte # (Auto) 0.17 10 3/uL High 0.00-0.03 [facility] Platelet mean volume Auto (B ld) [Entitic vol]on 10-06-2023 Platelet mean volume (Bld) [Entitic vol] 10.3 fL 9.5-13.5 [facility] Platelets Auto (Bld) [#/Vol] on 10-06-2023 Platelets (Bld) [#/Vol] 233 10 3/uL 150-450 [facility] RBC Auto (Bld) [#/Vol]on RBC (Bld) [#/Vol] 3.73 10 6/uL Low 4.70-6.10 [facility] Serum or plasma albumin/glob ulin mass ratioon 10-06-2023 Albumin/Globulin [Mass ratio] 0.5 {ratio} [facility] Serum or plasma anion gap de terminationon 10-06-2023 Anion gap [Moles/Vol] 14.1 mmol/L [facility] Basophils Auto (Bld) [#/Vol] on 10-05-2023 Basophils (Bld) [#/Vol] 0.1 10 3/uL 0.0-0.1 [facility] Basophils/100 WBC Auto (Bld) on 10-05-2023 Basophils/100 WBC (Bld) 0.6 % 0.2-2.0 [facility] Eosinophils/100 WBC Auto (Bl d)on 10-05-2023 Eosinophils/100 WBC (Bld) 3.3 % 0.9-7.0 [facility] Erythrocyte distribution wid th Auto (RBC) [Ratio]on 10-05-2023 Erythrocyte distribution width (RBC) [Ratio] 19.6 % High 11.0-15.0 [facility] Estimated glomerular filtrat ion rate (GFR) non- Americanon 10-05-2023 GFR/1.73 sq M.predicted among non-blacks MDRD (S/P/Bld) [Vol rate/Area] 41 mL/min/{1.73_m2} Low >=60 [facility] Globulin Calc (S) [Mass/Vol] on 10-05-2023 Globulin (S) [Mass/Vol] 4.7 g/dL [facility] Hematocrit Auto (Bld) [Volum e fraction]on 10-05-2023 Hematocrit (Bld) [Volume fraction] 29.9 % Low 42.0-54.0 [facility] Hemoglobin [Mass/volume] in Bloodon 10-05-2023 Hemoglobin (Bld) [Mass/Vol] 9.0 g/dL Low 14.0-18.0 [facility] Guy 10-05-2023 L Specimen: [id number] Received: 10/06/23 Status: COLTON Nath Num: [id number] Spec Type: Surgical Subm Dr: Paula Elias DPM, MS Tissues: A DIGIT AMPUTATION (RT 2,3,4 AND 5 METATARSAL AM) Procedures: HE/6, Gross/Micro L4, Decalcification Age/ Patient Sex Location Account Attending Physician Solomon Feldman SR 58/M LABELL [id number] Paula Elias DPM, MS SPEC NUM: [id number] RECD: 10/06/23 STATUS: COLTON NATH NUM: [id number] SHAKIRA: 10/05/[address]: Paula Elias DPM, MS ENTERED: 10/06/[address]: Aurelio,Jericho SPEC TYPE: Surgical DEPT: RAMSEY [...] specimen demonstrates firm, yellow spongy bone matrix. [employer] sections are submitted as follows: A1: Skin and soft tissue margins A2: Second digit, bone margin; #1 proximal phalangeal margin (following decal) A3: Third digit, bone margin; #2 proximal phalangeal margin (following decal) A4: Fourth digit, bone margin; #3 proximal phalangeal margin (following decal) A5: Fifth digit, bone margin; #4 proximal phalangeal margin (following decal) Specimen: [id number] Received: 10/06/23 Status: COLTON Tayler Num: [id number] Spec Type: Surgical Subm Dr: Paula Elias,LINDSEY, MS Tissues: A DIGIT AMPUTATION (RT 2,3,4 AND 5 METATARSAL AM) Procedures: LULU/Ramirez, Gross/Micro L4, Decalcification Patient: Solomon Feldman SR [id number] (Continued) Specimen: [id number] Received: 10/06/23 (Continued) Gross Description (Continued) Signed (signature on file) Padmini Linn MD 10/10/23 1542 Specimen: [id number] Received: 10/06/23 Status: COLTON Tayler Num: [id number] Spec Type: Surgical Subm Dr: Paula Elias,LINDSEY, MS Tissues: A DIGIT AMPUTATION (RT 2,3,4 AND 5 METATARSAL AM) Procedures: HE/6, Gross/Micro L4, Decalcification Patient: Solomon Feldman SR [id number] (Continued) Specimen: [id number] Received: 10/06/23 (Continued) Gross Description (Continued) A6: Full-thickness section to include skin, underlying soft tissue and bone (following decal) Clinical history: None given CPT Codes 73706 FOREFOOT AND DIGITS Specimen: [id number] Received: 10/06/23-4350 Status: COLTON Nath Num: [id number] Spec Type: Surgical Subm Dr: Paula Elias DPM, MS Tissues: A DIGIT AMPUTATION (RT 2,3,4 AND 5 METATARSAL AM) Procedures: HE/6, Gross/Micro L4, Decalcification Patient: Solomon Feldman SR [id number] (Continued) Signed (signature on file) Padmini Linn MD 10/10/23 1542 Normal [facility] Laboratory - Chemistry and C hemistry - challengeon 10-05-2023 Albumin [Mass/Vol] 2.2 g/dL Low 3.4-5.0 [facility] ALP [Catalytic activity/Vol] 140 U/L High 46-116 [facility] ALT [Catalytic activity/Vol] 18 U/L 16-63 [facility] AST [Catalytic activity/Vol] 22 U/L 15-37 [facility] Bilirubin [Mass/Vol] 0.5 mg/dL 0.2-1.0 [facility] Calcium [Mass/Vol] 9.2 mg/dL 8.5-10.1 [facility] Chloride [Moles/Vol] 100 mmol/L 98-107 [facility] CO2 [Moles/Vol] 22.6 mmol/L 21.0-32.0 [facility] Creatinine [Mass/Vol] 1.74 mg/dL High 0.70-1.30 [facility] GFR/1.73 sq M.predicted MDRD (S/P/Bld) [Vol rate/Area] 49 mL/min/{1.73_m2} Low >=60 [facility] Glucose [Mass/Vol] 162 mg/dL High 74-106 [facility] Magnesium [Mass/Vol] 1.7 mg/dL Low 1.8-2.4 [facility] Potassium [Moles/Vol] 5.3 mmol/L High 3.5-5.1 [facility] Protein [Mass/Vol] 6.9 g/dL 6.4-8.2 [facility] Sodium [Moles/Vol] 133 mmol/L Low 136-145 [facility] Urea nitrogen [Mass/Vol] 30.0 mg/dL High 7.0-18.0 [facility] Urea nitrogen/Creatinine [Mass ratio] 17.2 mg/mg [facility] Laboratory - Hematology and Cell countson 10-05-2023 ESR (Bld) [Velocity] 130 mm/h High <=20 [facility] Immature granulocytes/100 WBC (Bld) 1.3 % High 0.0-0.5 [facility] Leukocytes [#/volume] correc jorge for nucleated erythrocytes in Blood by Automated counon 10-05-2023 WBC corrected for nucl RBC Auto (Bld) [#/Vol] 12.6 10 3/uL High 4.0-11.0 [facility] Lymphocytes Auto (Bld) [#/Vo l]on 10-05-2023 Lymphocytes (Bld) [#/Vol] 1.3 10 3/uL 1.2-3.8 [facility] Lymphocytes/100 WBC Auto (Bl d)on 10-05-2023 Lymphocytes/100 WBC (Bld) 10.1 % Low 20.5-60.0 [facility] MCH Auto (RBC) [Entitic mass ]on 10-05-2023 MCH (RBC) [Entitic mass] 22.7 pg Low 25.9-34.0 [facility] MCHC Auto (RBC) [Mass/Vol]on 10-05-2023 MCHC (RBC) [Mass/Vol] 30.1 g/dL 29.9-35.2 [facility] MCV Auto (RBC) [Entitic vol] on 10-05-2023 MCV (RBC) [Entitic vol] 75.3 fL Low 80.0-94.0 [facility] Monocytes Auto (Bld) [#/Vol] on 10-05-2023 Monocytes (Bld) [#/Vol] 1.4 10 3/uL High 0.3-0.8 [facility] Monocytes/100 WBC Auto (Bld) on 10-05-2023 Monocytes/100 WBC (Bld) 10.9 % 1.7-12.0 [facility] Neutrophils Auto (Bld) [#/Vo l]on 10-05-2023 Neutrophils (Bld) [#/Vol] 9.3 10 3/uL High 1.4-6.5 [facility] Neutrophils/100 WBC Auto (Bl d)on 10-05-2023 Neutrophils/100 WBC (Bld) 73.8 % 43.0-75.0 [facility] No Panel Informationon 10-04 Eosinophils # (Auto) 0.4 10 3/uL 0.0-0.7 [facility] Immature Granulocyte # (Auto) 0.16 10 3/uL High 0.00-0.03 [facility] Platelet mean volume Auto (B ld) [Entitic vol]on 10-05-2023 Platelet mean volume (Bld) [Entitic vol] 11.3 fL 9.5-13.5 [facility] Platelets Auto (Bld) [#/Vol] on 10-05-2023 Platelets (Bld) [#/Vol] 203 10 3/uL 150-450 [facility] RBC Auto (Bld) [#/Vol]on RBC (Bld) [#/Vol] 3.97 10 6/uL Low 4.70-6.10 [facility] Serum or plasma albumin/glob ulin mass ratioon 10-05-2023 Albumin/Globulin [Mass ratio] 0.5 {ratio} [facility] Serum or plasma anion gap de terminationon 10-05-2023 Anion gap [Moles/Vol] 15.7 mmol/L [facility] Basophils Auto (Bld) [#/Vol] on 10-04-2023 Basophils (Bld) [#/Vol] 0.1 10 3/uL 0.0-0.1 [facility] Basophils/100 WBC Auto (Bld) on 10-04-2023 Basophils/100 WBC (Bld) 0.5 % 0.2-2.0 [facility] Eosinophils/100 WBC Auto (Bl d)on 10-04-2023 Eosinophils/100 WBC (Bld) 3.6 % 0.9-7.0 [facility] Erythrocyte distribution wid th Auto (RBC) [Ratio]on 10-04-2023 Erythrocyte distribution width (RBC) [Ratio] 19.6 % High 11.0-15.0 [facility] Estimated glomerular filtrat ion rate (GFR) non- Americanon 10-04-2023 GFR/1.73 sq M.predicted among non-blacks MDRD (S/P/Bld) [Vol rate/Area] 44 mL/min/{1.73_m2} Low >=60 [facility] Globulin Calc (S) [Mass/Vol] on 10-04-2023 Globulin (S) [Mass/Vol] 4.3 g/dL [facility] Hematocrit Auto (Bld) [Volum e fraction]on 10-04-2023 Hematocrit (Bld) [Volume fraction] 26.8 % Low 42.0-54.0 [facility] Hemoglobin [Mass/volume] in Bloodon 10-04-2023 Hemoglobin (Bld) [Mass/Vol] 7.9 g/dL Low 14.0-18.0 [facility] Laboratory - Chemistry and C hemistry - challengeon 10-04-2023 Albumin [Mass/Vol] 1.9 g/dL Low 3.4-5.0 [facility] ALP [Catalytic activity/Vol] 135 U/L High 46-116 [facility] ALT [Catalytic activity/Vol] 16 U/L 16-63 [facility] AST [Catalytic activity/Vol] 19 U/L 15-37 [facility] Bilirubin [Mass/Vol] 0.4 mg/dL 0.2-1.0 [facility] Calcium [Mass/Vol] 7.8 mg/dL Low 8.5-10.1 [facility] Chloride [Moles/Vol] 102 mmol/L 98-107 [facility] CO2 [Moles/Vol] 25.0 mmol/L 21.0-32.0 [facility] Creatinine [Mass/Vol] 1.61 mg/dL High 0.70-1.30 [facility] GFR/1.73 sq M.predicted MDRD (S/P/Bld) [Vol rate/Area] 54 mL/min/{1.73_m2} Low >=60 [facility] Glucose [Mass/Vol] 136 mg/dL High 74-106 [facility] Magnesium [Mass/Vol] 1.7 mg/dL Low 1.8-2.4 [facility] Potassium [Moles/Vol] 5.1 mmol/L 3.5-5.1 [facility] Protein [Mass/Vol] 6.2 g/dL Low 6.4-8.2 [facility] Sodium [Moles/Vol] 134 mmol/L Low 136-145 [facility] Urea nitrogen [Mass/Vol] 25.0 mg/dL High 7.0-18.0 [facility] Urea nitrogen/Creatinine [Mass ratio] 15.5 mg/mg [facility] Laboratory - Hematology and Cell countson 10-04-2023 ESR (Bld) [Velocity] 117 mm/h High <=20 [facility] Immature granulocytes/100 WBC (Bld) 0.9 % High 0.0-0.5 [facility] Leukocytes [#/volume] correc jorge for nucleated erythrocytes in Blood by Automated counon 10-04-2023 WBC corrected for nucl RBC Auto (Bld) [#/Vol] 11.5 10 3/uL High 4.0-11.0 [facility] Lymphocytes Auto (Bld) [#/Vo l]on 10-04-2023 Lymphocytes (Bld) [#/Vol] 1.3 10 3/uL 1.2-3.8 [facility] Lymphocytes/100 WBC Auto (Bl d)on 10-04-2023 Lymphocytes/100 WBC (Bld) 10.9 % Low 20.5-60.0 [facility] MCH Auto (RBC) [Entitic mass ]on 10-04-2023 MCH (RBC) [Entitic mass] 22.4 pg Low 25.9-34.0 [facility] MCHC Auto (RBC) [Mass/Vol]on 10-04-2023 MCHC (RBC) [Mass/Vol] 29.5 g/dL Low 29.9-35.2 [facility] MCV Auto (RBC) [Entitic vol] on 10-04-2023 MCV (RBC) [Entitic vol] 75.9 fL Low 80.0-94.0 [facility] Monocytes Auto (Bld) [#/Vol] on 10-04-2023 Monocytes (Bld) [#/Vol] 1.4 10 3/uL High 0.3-0.8 [facility] Monocytes/100 WBC Auto (Bld) on 10-04-2023 Monocytes/100 WBC (Bld) 12.4 % High 1.7-12.0 [facility] Neutrophils Auto (Bld) [#/Vo l]on 10-04-2023 Neutrophils (Bld) [#/Vol] 8.3 10 3/uL High 1.4-6.5 [facility] Neutrophils/100 WBC Auto (Bl d)on 10-04-2023 Neutrophils/100 WBC (Bld) 71.7 % 43.0-75.0 [facility] No Panel Informationon 10-03 Eosinophils # (Auto) 0.4 10 3/uL 0.0-0.7 [facility] Immature Granulocyte # (Auto) 0.10 10 3/uL High 0.00-0.03 [facility] Platelet mean volume Auto (B ld) [Entitic vol]on 10-04-2023 Platelet mean volume (Bld) [Entitic vol] 11.5 fL 9.5-13.5 [facility] Platelets Auto (Bld) [#/Vol] on 10-04-2023 Platelets (Bld) [#/Vol] 154 10 3/uL 150-450 [facility] RBC Auto (Bld) [#/Vol]on RBC (Bld) [#/Vol] 3.53 10 6/uL Low 4.70-6.10 [facility] Serum or plasma albumin/glob ulin mass ratioon 10-04-2023 Albumin/Globulin [Mass ratio] 0.4 {ratio} [facility] Serum or plasma anion gap de terminationon 10-04-2023 Anion gap [Moles/Vol] 12.1 mmol/L [facility] Basophils Auto (Bld) [#/Vol] on 10-03-2023 Basophils (Bld) [#/Vol] 0.1 10 3/uL 0.0-0.1 [facility] Basophils/100 WBC Auto (Bld) on 10-03-2023 Basophils/100 WBC (Bld) 0.7 % 0.2-2.0 [facility] Eosinophils/100 WBC Auto (Bl d)on 10-03-2023 Eosinophils/100 WBC (Bld) 2.7 % 0.9-7.0 [facility] Erythrocyte distribution wid th Auto (RBC) [Ratio]on 10-03-2023 Erythrocyte distribution width (RBC) [Ratio] 19.2 % High 11.0-15.0 [facility] Estimated glomerular filtrat ion rate (GFR) non- Americanon 10-03-2023 GFR/1.73 sq M.predicted among non-blacks MDRD (S/P/Bld) [Vol rate/Area] 46 mL/min/{1.73_m2} Low >=60 [facility] Globulin Calc (S) [Mass/Vol] on 10-03-2023 Globulin (S) [Mass/Vol] 4.1 g/dL [facility] Hematocrit Auto (Bld) [Volum e fraction]on 10-03-2023 Hematocrit (Bld) [Volume fraction] 26.4 % Low 42.0-54.0 [facility] Hemoglobin [Mass/volume] in Bloodon 10-03-2023 Hemoglobin (Bld) [Mass/Vol] 8.1 g/dL Low 14.0-18.0 [facility] Laboratory - Chemistry and C hemistry - challengeon 10-03-2023 Albumin [Mass/Vol] 1.9 g/dL Low 3.4-5.0 [facility] ALP [Catalytic activity/Vol] 140 U/L High 46-116 [facility] ALT [Catalytic activity/Vol] 17 U/L 16-63 [facility] AST [Catalytic activity/Vol] 21 U/L 15-37 [facility] Bilirubin [Mass/Vol] 0.3 mg/dL 0.2-1.0 [facility] Calcium [Mass/Vol] 6.7 mg/dL Low 8.5-10.1 [facility] Chloride [Moles/Vol] 101 mmol/L 98-107 [facility] CO2 [Moles/Vol] 23.9 mmol/L 21.0-32.0 [facility] Creatinine [Mass/Vol] 1.57 mg/dL High 0.70-1.30 [facility] GFR/1.73 sq M.predicted MDRD (S/P/Bld) [Vol rate/Area] 55 mL/min/{1.73_m2} Low >=60 [facility] Glucose [Mass/Vol] 142 mg/dL High 74-106 [facility] Magnesium [Mass/Vol] 1.3 mg/dL Low 1.8-2.4 [facility] Potassium [Moles/Vol] 4.8 mmol/L 3.5-5.1 [facility] Protein [Mass/Vol] 6.0 g/dL Low 6.4-8.2 [facility] Sodium [Moles/Vol] 134 mmol/L Low 136-145 [facility] Urea nitrogen [Mass/Vol] 23.0 mg/dL High 7.0-18.0 [facility] Urea nitrogen/Creatinine [Mass ratio] 14.6 mg/mg [facility] Laboratory - Hematology and Cell countson 10-03-2023 ESR (Bld) [Velocity] mm/h High <=20 [facility] Immature granulocytes/100 WBC (Bld) 1.0 % High 0.0-0.5 [facility] Leukocytes [#/volume] correc jorge for nucleated erythrocytes in Blood by Automated counon 10-03-2023 WBC corrected for nucl RBC Auto (Bld) [#/Vol] 11.6 10 3/uL High 4.0-11.0 [facility] Lymphocytes Auto (Bld) [#/Vo l]on 10-03-2023 Lymphocytes (Bld) [#/Vol] 1.4 10 3/uL 1.2-3.8 [facility] Lymphocytes/100 WBC Auto (Bl d)on 10-03-2023 Lymphocytes/100 WBC (Bld) 12.1 % Low 20.5-60.0 [facility] MCH Auto (RBC) [Entitic mass ]on 10-03-2023 MCH (RBC) [Entitic mass] 23.2 pg Low 25.9-34.0 [facility] MCHC Auto (RBC) [Mass/Vol]on 10-03-2023 MCHC (RBC) [Mass/Vol] 30.7 g/dL 29.9-35.2 [facility] MCV Auto (RBC) [Entitic vol] on 10-03-2023 MCV (RBC) [Entitic vol] 75.6 fL Low 80.0-94.0 [facility] Monocytes Auto (Bld) [#/Vol] on 10-03-2023 Monocytes (Bld) [#/Vol] 1.3 10 3/uL High 0.3-0.8 [facility] Monocytes/100 WBC Auto (Bld) on 10-03-2023 Monocytes/100 WBC (Bld) 10.8 % 1.7-12.0 [facility] Neutrophils Auto (Bld) [#/Vo l]on 10-03-2023 Neutrophils (Bld) [#/Vol] 8.5 10 3/uL High 1.4-6.5 [facility] Neutrophils/100 WBC Auto (Bl d)on 10-03-2023 Neutrophils/100 WBC (Bld) 72.7 % 43.0-75.0 [facility] No Panel Informationon 10-02 Eosinophils # (Auto) 0.3 10 3/uL 0.0-0.7 [facility] Immature Granulocyte # (Auto) 0.12 10 3/uL High 0.00-0.03 [facility] Platelet mean volume Auto (B ld) [Entitic vol]on 10-03-2023 Platelet mean volume (Bld) [Entitic vol] 11.3 fL 9.5-13.5 [facility] Platelets Auto (Bld) [#/Vol] on 10-03-2023 Platelets (Bld) [#/Vol] 141 10 3/uL Low 150-450 [facility] RBC Auto (Bld) [#/Vol]on RBC (Bld) [#/Vol] 3.49 10 6/uL Low 4.70-6.10 [facility] Serum or plasma albumin/glob ulin mass ratioon 10-03-2023 Albumin/Globulin [Mass ratio] 0.5 {ratio} [facility] Serum or plasma anion gap de terminationon 10-03-2023 Anion gap [Moles/Vol] 13.9 mmol/L [facility] Basophils Auto (Bld) [#/Vol] on 10-02-2023 Basophils (Bld) [#/Vol] 0.0 10 3/uL 0.0-0.1 [facility] Basophils/100 WBC Auto (Bld) on 10-02-2023 Basophils/100 WBC (Bld) 0.4 % 0.2-2.0 [facility] Eosinophils/100 WBC Auto (Bl d)on 10-02-2023 Eosinophils/100 WBC (Bld) 2.2 % 0.9-7.0 [facility] Erythrocyte distribution wid th Auto (RBC) [Ratio]on 10-02-2023 Erythrocyte distribution width (RBC) [Ratio] 19.3 % High 11.0-15.0 [facility] Estimated glomerular filtrat ion rate (GFR) non- Americanon 10-02-2023 GFR/1.73 sq M.predicted among non-blacks MDRD (S/P/Bld) [Vol rate/Area] 41 mL/min/{1.73_m2} Low >=60 [facility] Globulin Calc (S) [Mass/Vol] on 10-02-2023 Globulin (S) [Mass/Vol] 4.2 g/dL [facility] Hematocrit Auto (Bld) [Volum e fraction]on 10-02-2023 Hematocrit (Bld) [Volume fraction] 26.1 % Low 42.0-54.0 [facility] Hemoglobin [Mass/volume] in Bloodon 10-02-2023 Hemoglobin (Bld) [Mass/Vol] 7.8 g/dL Low 14.0-18.0 [facility] Guy 10-02-2023 L Specimen: [id number] Received: 10/03/23 Status: COLTON Nath Num: [id number] Spec Type: Surgical Subm Dr: Paula Elias DPM, MS Tissues: A DIGIT AMPUTATION (FIRST METATARSAL RT FOOT) Procedures: HE/2, Gross/Micro L4, Decalcification Age/ Patient Sex Location Account Attending Physician Solomon Feldman 58/M LABELL [id number] Paula Elias DPM, MS SPEC NUM: [id number] RECD: 10/03/23 STATUS: [facility] NUM: [id number] SHAKIRA: 10/02/[address]: Paula Elias DPM, [...] firm yellow- pink spongy bone matrix. A circulation representative longitudinal section is bisected and submitted following decalcification in cassettes A1?A2. Clinical history: Right diabetic foot infection CPT Codes 60582 Specimen: [id number] Received: 10/03/23 Status: COLTON Nath Num: [id number] Spec Type: Surgical Subm Dr: Paula Elias,LINDSEY, MS Tissues: A DIGIT AMPUTATION (FIRST METATARSAL RT FOOT) Procedures: TOÑITO, Gross/Micro L4, Decalcification Patient: Solomon Feldman SR [id number] (Continued) Signed (signature on file) Padmini Linn MD 10/05/23 1426 Normal [facility] Laboratory - Chemistry and C hemistry - challengeon 10-02-2023 Albumin [Mass/Vol] 2.1 g/dL Low 3.4-5.0 [facility] ALP [Catalytic activity/Vol] 131 U/L High 46-116 [facility] ALT [Catalytic activity/Vol] 17 U/L 16-63 [facility] AST [Catalytic activity/Vol] 13 U/L Low 15-37 [facility] Bilirubin [Mass/Vol] 0.3 mg/dL 0.2-1.0 [facility] Calcium [Mass/Vol] 6.6 mg/dL Low 8.5-10.1 [facility] Chloride [Moles/Vol] 105 mmol/L 98-107 [facility] CO2 [Moles/Vol] 24.3 mmol/L 21.0-32.0 [facility] Creatinine [Mass/Vol] 1.72 mg/dL High 0.70-1.30 [facility] GFR/1.73 sq M.predicted MDRD (S/P/Bld) [Vol rate/Area] 50 mL/min/{1.73_m2} Low >=60 [facility] Glucose [Mass/Vol] 156 mg/dL High 74-106 [facility] Magnesium [Mass/Vol] 1.5 mg/dL Low 1.8-2.4 [facility] Potassium [Moles/Vol] 4.0 mmol/L 3.5-5.1 [facility] Protein [Mass/Vol] 6.3 g/dL Low 6.4-8.2 [facility] Sodium [Moles/Vol] 139 mmol/L 136-145 [facility] Urea nitrogen [Mass/Vol] 27.0 mg/dL High 7.0-18.0 [facility] Urea nitrogen/Creatinine [Mass ratio] 15.7 mg/mg [facility] Laboratory - Hematology and Cell countson 10-02-2023 Immature granulocytes/100 WBC (Bld) 0.4 % 0.0-0.5 [facility] ESR (Bld) [Velocity] 110 mm/h High <=20 [facility] Laboratory - Microbiology an d Antimicrobial susceptibilityOrdered By: Truman Bryant on 10-02-2023 Microscopic observation Gram stain Nom (Unsp spec) [facility] Leukocytes [#/volume] correc jorge for nucleated erythrocytes in Blood by Automated counon 10-02-2023 WBC corrected for nucl RBC Auto (Bld) [#/Vol] 8.5 10 3/uL 4.0-11.0 [facility] Lymphocytes Auto (Bld) [#/Vo l]on 10-02-2023 Lymphocytes (Bld) [#/Vol] 1.5 10 3/uL 1.2-3.8 [facility] Lymphocytes/100 WBC Auto (Bl d)on 10-02-2023 Lymphocytes/100 WBC (Bld) 17.3 % Low 20.5-60.0 [facility] MCH Auto (RBC) [Entitic mass ]on 10-02-2023 MCH (RBC) [Entitic mass] 22.5 pg Low 25.9-34.0 [facility] MCHC Auto (RBC) [Mass/Vol]on 10-02-2023 MCHC (RBC) [Mass/Vol] 29.9 g/dL 29.9-35.2 [facility] MCV Auto (RBC) [Entitic vol] on 10-02-2023 MCV (RBC) [Entitic vol] 75.2 fL Low 80.0-94.0 [facility] Monocytes Auto (Bld) [#/Vol] on 10-02-2023 Monocytes (Bld) [#/Vol] 0.8 10 3/uL 0.3-0.8 [facility] Monocytes/100 WBC Auto (Bld) on 10-02-2023 Monocytes/100 WBC (Bld) 9.1 % 1.7-12.0 [facility] Neutrophils Auto (Bld) [#/Vo l]on 10-02-2023 Neutrophils (Bld) [#/Vol] 6.0 10 3/uL 1.4-6.5 [facility] Neutrophils/100 WBC Auto (Bl d)on 10-02-2023 Neutrophils/100 WBC (Bld) 70.6 % 43.0-75.0 [facility] No Panel Informationon 10-01 Eosinophils # (Auto) 0.2 10 3/uL 0.0-0.7 [facility] Immature Granulocyte # (Auto) 0.03 10 3/uL 0.00-0.03 [facility] Fungal Smear Result [facility] Miscellaneous Test Comment See comment [facility] Comment on above: Specimen Source: JONO TRT - Foot Right - Foot Rt - 604.000 No Panel InformationOrdered By: Truman Bryant on 10-02-2023 Tissue Culture [facility] No Panel InformationOrdered By: Paula Elias on 10-02-2023 Acid Fast Smear [facility] AF[employer] Specimen Processing [facility] Platelet mean volume Auto (B ld) [Entitic vol]on 10-02-2023 Platelet mean volume (Bld) [Entitic vol] 10.6 fL 9.5-13.5 [facility] Platelets Auto (Bld) [#/Vol] on 10-02-2023 Platelets (Bld) [#/Vol] 142 10 3/uL Low 150-450 [facility] RBC Auto (Bld) [#/Vol]on RBC (Bld) [#/Vol] 3.47 10 6/uL Low 4.70-6.10 [facility] Serum or plasma albumin/glob ulin mass ratioon 10-02-2023 Albumin/Globulin [Mass ratio] 0.5 {ratio} [facility] Serum or plasma anion gap de terminationon 10-02-2023 Anion gap [Moles/Vol] 13.7 mmol/L [facility] Basophils Auto (Bld) [#/Vol] on 10-01-2023 Basophils (Bld) [#/Vol] 0.0 10 3/uL 0.0-0.1 [facility] Basophils/100 WBC Auto (Bld) on 10-01-2023 Basophils/100 WBC (Bld) 0.4 % 0.2-2.0 [facility] Eosinophils/100 WBC Auto (Bl d)on 10-01-2023 Eosinophils/100 WBC (Bld) 1.7 % 0.9-7.0 [facility] Erythrocyte distribution wid th Auto (RBC) [Ratio]on 10-01-2023 Erythrocyte distribution width (RBC) [Ratio] 18.5 % High 11.0-15.0 [facility] Estimated glomerular filtrat ion rate (GFR) non- Americanon 10-01-2023 GFR/1.73 sq M.predicted among non-blacks MDRD (S/P/Bld) [Vol rate/Area] 27 mL/min/{1.73_m2} Low >=60 [facility] Globulin Calc (S) [Mass/Vol] on 10-01-2023 Globulin (S) [Mass/Vol] 4.0 g/dL [facility] Hematocrit Auto (Bld) [Volum e fraction]on 10-01-2023 Hematocrit (Bld) [Volume fraction] 26.5 % Low 42.0-54.0 [facility] Hemoglobin [Mass/volume] in Bloodon 10-01-2023 Hemoglobin (Bld) [Mass/Vol] 8.0 g/dL Low 14.0-18.0 [facility] Laboratory - Chemistry and C hemistry - challengeon 10-01-2023 Lactate [Moles/Vol] 1.8 mmol/L 0.4-2.0 [facility] Albumin [Mass/Vol] 1.9 g/dL Low 3.4-5.0 [facility] ALP [Catalytic activity/Vol] 113 U/L 46-116 [facility] ALT [Catalytic activity/Vol] 17 U/L 16-63 [facility] AST [Catalytic activity/Vol] 14 U/L Low 15-37 [facility] Bilirubin [Mass/Vol] 0.3 mg/dL 0.2-1.0 [facility] Calcium [Mass/Vol] 5.7 mg/dL Low 8.5-10.1 [facility] Comment on above: RESULTS CALLED TO Patricio Genao(RN)@BY Marybel Hawkins MLT at 0619 Chloride [Moles/Vol] 102 mmol/L 98-107 [facility] CO2 [Moles/Vol] 20.4 mmol/L Low 21.0-32.0 [facility] Creatinine [Mass/Vol] 2.46 mg/dL High 0.70-1.30 [facility] GFR/1.73 sq M.predicted MDRD (S/P/Bld) [Vol rate/Area] 33 mL/min/{1.73_m2} Low >=60 [facility] Glucose [Mass/Vol] 67 mg/dL Low 74-106 [facility] Magnesium [Mass/Vol] 0.8 mg/dL Low 1.8-2.4 [facility] Comment on above: RESULTS CALLED TO Patricio Genao (RN)@BY [address] Way at 0601 Potassium [Moles/Vol] 3.1 mmol/L Low 3.5-5.1 [facility] Protein [Mass/Vol] 5.9 g/dL Low 6.4-8.2 [facility] Sodium [Moles/Vol] 138 mmol/L 136-145 [facility] Urea nitrogen [Mass/Vol] 28.0 mg/dL High 7.0-18.0 [facility] Urea nitrogen/Creatinine [Mass ratio] 11.4 mg/mg [facility] Laboratory - Hematology and Cell countson 10-01-2023 ESR (Bld) [Velocity] 96 mm/h High <=20 [facility] Immature granulocytes/100 WBC (Bld) 0.6 % High 0.0-0.5 [facility] Leukocytes [#/volume] correc jorge for nucleated erythrocytes in Blood by Automated counon 10-01-2023 WBC corrected for nucl RBC Auto (Bld) [#/Vol] 10.0 10 3/uL 4.0-11.0 [facility] Lymphocytes Auto (Bld) [#/Vo l]on 10-01-2023 Lymphocytes (Bld) [#/Vol] 1.3 10 3/uL 1.2-3.8 [facility] Lymphocytes/100 WBC Auto (Bl d)on 10-01-2023 Lymphocytes/100 WBC (Bld) 12.8 % Low 20.5-60.0 [facility] MCH Auto (RBC) [Entitic mass ]on 10-01-2023 MCH (RBC) [Entitic mass] 22.4 pg Low 25.9-34.0 [facility] MCHC Auto (RBC) [Mass/Vol]on 10-01-2023 MCHC (RBC) [Mass/Vol] 30.2 g/dL 29.9-35.2 [facility] MCV Auto (RBC) [Entitic vol] on 10-01-2023 MCV (RBC) [Entitic vol] 74.2 fL Low 80.0-94.0 [facility] Monocytes Auto (Bld) [#/Vol] on 10-01-2023 Monocytes (Bld) [#/Vol] 0.7 10 3/uL 0.3-0.8 [facility] Monocytes/100 WBC Auto (Bld) on 10-01-2023 Monocytes/100 WBC (Bld) 6.9 % 1.7-12.0 [facility] Neutrophils Auto (Bld) [#/Vo l]on 10-01-2023 Neutrophils (Bld) [#/Vol] 7.8 10 3/uL High 1.4-6.5 [facility] Neutrophils/100 WBC Auto (Bl d)on 10-01-2023 Neutrophils/100 WBC (Bld) 77.6 % High 43.0-75.0 [facility] No Panel Informationon 09-30 C-Reactive Protein, Quantitative 10.58 mg/dL High <=0.50 [facility] Eosinophils # (Auto) 0.2 10 3/uL 0.0-0.7 [facility] Immature Granulocyte # (Auto) 0.06 10 3/uL High 0.00-0.03 [facility] Troponin I High Sensitivity 8.3 pg/mL 4.0-76.1 [facility] Comment on above: CUT-OFF POINTS [...] Venous Blood Partial Pressure CO2 30.4 mm[Hg] Low 40.0-52.0 [facility] Venous Blood pH 7.421 7.330-7.43 0 [facility] Platelet mean volume Auto (B ld) [Entitic vol]on 10-01-2023 Platelet mean volume (Bld) [Entitic vol] 11.2 fL 9.5-13.5 [facility] Platelets Auto (Bld) [#/Vol] on 10-01-2023 Platelets (Bld) [#/Vol] 164 10 3/uL 150-450 [facility] RBC Auto (Bld) [#/Vol]on RBC (Bld) [#/Vol] 3.57 10 6/uL Low 4.70-6.10 [facility] Serum or plasma albumin/glob ulin mass ratioon 10-01-2023 Albumin/Globulin [Mass ratio] 0.5 {ratio} [facility] Serum or plasma anion gap de terminationon 10-01-2023 Anion gap [Moles/Vol] 18.7 mmol/L [facility] Automated epithelial cells c ount in urine sediment (number/area)on 09-30-2023 Epithelial cells Auto (Urine sed) [#/Area] NONE SEEN #/LPF NONE/RARE [facility] Automated leukocytes count i n urine sediment (number/area)on 09-30-2023 WBC Auto (Urine sed) [#/Area] NONE SEEN #/HPF 0-2 [facility] Automated urine specific gra vity by refractometryon 09-30-2023 Specific gravity Refractometry automated (U) [Rel density] <=1.005 Abnormal 1.005-1.02 5 [facility] Basophils Auto (Bld) [#/Vol] on 09-30-2023 Basophils (Bld) [#/Vol] 0.1 10 3/uL 0.0-0.1 [facility] Basophils/100 WBC Auto (Bld) on 09-30-2023 Basophils/100 WBC (Bld) 0.4 % 0.2-2.0 [facility] Bilirubin Auto test strip (U ) [Mass/Vol]on 09-30-2023 Bilirubin (U) [Mass/Vol] Negative NEGATIVE [facility] Casts typing in urine sedime nt by light microscopyon 09-30-2023 Casts LM Nom (Urine sed) NONE SEEN #/LPF NONE SEEN [facility] Color Auto (U)on 09-30-2023 Color (U) LT. YELLOW YELLOW [facility] Eosinophils/100 WBC Auto (Bl d)on 09-30-2023 Eosinophils/100 WBC (Bld) 1.4 % 0.9-7.0 [facility] Erythrocyte distribution wid th Auto (RBC) [Ratio]on 09-30-2023 Erythrocyte distribution width (RBC) [Ratio] 19.0 % High 11.0-15.0 [facility] Estimated glomerular filtrat ion rate (GFR) non- Americanon 09-30-2023 GFR/1.73 sq M.predicted among non-blacks MDRD (S/P/Bld) [Vol rate/Area] 19 mL/min/{1.73_m2} Low >=60 [facility] Globulin Calc (S) [Mass/Vol] on 09-30-2023 Globulin (S) [Mass/Vol] 4.8 g/dL [facility] Hematocrit Auto (Bld) [Volum e fraction]on 09-30-2023 Hematocrit (Bld) [Volume fraction] 32.9 % Low 42.0-54.0 [facility] Hemoglobin [Mass/volume] in Bloodon 09-30-2023 Hemoglobin (Bld) [Mass/Vol] 10.0 g/dL Low 14.0-18.0 [facility] INR in Platelet poor plasma by Coagulation assayon 09-30-2023 INR Coag (PPP) [Relative time] 1.23 {INR} [facility] Comment on above: DESIRED INR:2.0-3.0 CONDITIONS NOT LISTED BELOW2.5-3.5 FOR PROSTHETIC HEART VALVE REPLACEMENT2.5-3.5 RECURRENT THROMBOSIS Ketones Auto test strip (U) [Mass/Vol]on 09-30-2023 Ketones (U) [Mass/Vol] Negative NEGATIVE [facility] Laboratory - Chemistry and C hemistry - challengeon 09-30-2023 Lactate [Moles/Vol] 4.2 mmol/L High 0.4-2.0 [facility] Comment on above: RESULTS CALLED TO Patricio Genao (RN)@BY [address] at 2312 Albumin [Mass/Vol] 2.4 g/dL Low 3.4-5.0 [facility] ALP [Catalytic activity/Vol] 145 U/L High 46-116 [facility] ALT [Catalytic activity/Vol] 17 U/L 16-63 [facility] AST [Catalytic activity/Vol] 21 U/L 15-37 [facility] Bilirubin [Mass/Vol] 0.4 mg/dL 0.2-1.0 [facility] Calcium [Mass/Vol] 5.8 mg/dL Low 8.5-10.1 [facility] Comment on above: RESULTS CALLED TO GIOVANNA CASTANON @BY Verona Hanson at 1645 Chloride [Moles/Vol] 97 mmol/L Low 98-107 [facility] CO2 [Moles/Vol] 18.3 mmol/L Low 21.0-32.0 [facility] Creatinine [Mass/Vol] 3.43 mg/dL High 0.70-1.30 [facility] GFR/1.73 sq M.predicted MDRD (S/P/Bld) [Vol rate/Area] 22 mL/min/{1.73_m2} Low >=60 [facility] Glucose [Mass/Vol] 208 mg/dL High 74-106 [facility] Magnesium [Mass/Vol] 0.5 mg/dL Low 1.8-2.4 [facility] Comment on above: RESULTS CALLED TO Giovanna Morleyey @BY Marybel Hawkins, [employer] AR[employer] [id number] Natriuretic peptide B (Bld) [Mass/Vol] 611.0 pg/mL <=900.0 [facility] Potassium [Moles/Vol] 3.9 mmol/L 3.5-5.1 [facility] Protein [Mass/Vol] 7.2 g/dL 6.4-8.2 [facility] Sodium [Moles/Vol] 137 mmol/L 136-145 [facility] Urea nitrogen [Mass/Vol] 34.0 mg/dL High 7.0-18.0 [facility] Urea nitrogen/Creatinine [Mass ratio] 9.9 mg/mg [facility] Laboratory - Hematology and Cell countson 09-30-2023 ESR (Bld) [Velocity] 130 mm/h High <=20 [facility] Immature granulocytes/100 WBC (Bld) 0.6 % High 0.0-0.5 [facility] Leukocytes [#/volume] correc jorge for nucleated erythrocytes in Blood by Automated counon 09-30-2023 WBC corrected for nucl RBC Auto (Bld) [#/Vol] 13.9 10 3/uL High 4.0-11.0 [facility] Lymphocytes Auto (Bld) [#/Vo l]on 09-30-2023 Lymphocytes (Bld) [#/Vol] 1.4 10 3/uL 1.2-3.8 [facility] Lymphocytes/100 WBC Auto (Bl d)on 09-30-2023 Lymphocytes/100 WBC (Bld) 10.1 % Low 20.5-60.0 [facility] MCH Auto (RBC) [Entitic mass ]on 09-30-2023 MCH (RBC) [Entitic mass] 22.7 pg Low 25.9-34.0 [facility] MCHC Auto (RBC) [Mass/Vol]on 09-30-2023 MCHC (RBC) [Mass/Vol] 30.4 g/dL 29.9-35.2 [facility] MCV Auto (RBC) [Entitic vol] on 09-30-2023 MCV (RBC) [Entitic vol] 74.6 fL Low 80.0-94.0 [facility] Monocytes Auto (Bld) [#/Vol] on 09-30-2023 Monocytes (Bld) [#/Vol] 0.9 10 3/uL High 0.3-0.8 [facility] Monocytes/100 WBC Auto (Bld) on 09-30-2023 Monocytes/100 WBC (Bld) 6.7 % 1.7-12.0 [facility] Mucus LM Ql (Urine sed)on Mucus Ql (Urine sed) NONE SEEN NONE SEEN [facility] Neutrophils Auto (Bld) [#/Vo l]on 09-30-2023 Neutrophils (Bld) [#/Vol] 11.2 10 3/uL High 1.4-6.5 [facility] Neutrophils/100 WBC Auto (Bl d)on 09-30-2023 Neutrophils/100 WBC (Bld) 80.8 % High 43.0-75.0 [facility] No Panel Informationon 09-29 Troponin I High Sensitivity 7.9 pg/mL 4.0-76.1 [facility] Comment on above: CUT-OFF POINTS [...] Venous Blood Partial Pressure CO2 29.6 mm[Hg] Low 40.0-52.0 [facility] Venous Blood pH 7.405 7.330-7.43 0 [facility] Urine Culture Reflexed NO [facility] C-Reactive Protein, Quantitative 14.76 mg/dL High <=0.50 [facility] Eosinophils # (Auto) 0.2 10 3/uL 0.0-0.7 [facility] Immature Granulocyte # (Auto) 0.09 10 3/uL High 0.00-0.03 [facility] No Panel InformationOrdered By: Chandrika Castanon on 09-30-2023 Blood Culture 2 [facility] Wound Culture [facility] Blood Culture 1 [facility] Platelet mean volume Auto (B ld) [Entitic vol]on 09-30-2023 Platelet mean volume (Bld) [Entitic vol] 10.9 fL 9.5-13.5 [facility] Platelets Auto (Bld) [#/Vol] on 09-30-2023 Platelets (Bld) [#/Vol] 227 10 3/uL 150-450 [facility] Protein Auto test strip (U) [Mass/Vol]on 09-30-2023 Protein (U) [Mass/Vol] Negative NEG/TRACE [facility] Prothrombin time (PT)on 09-04 PT Coag (PPP) [Time] 12.9 s High 9.0-11.6 [facility] RBC Auto (Bld) [#/Vol]on RBC (Bld) [#/Vol] 4.41 10 6/uL Low 4.70-6.10 [facility] Serum or plasma albumin/glob ulin mass ratioon 09-30-2023 Albumin/Globulin [Mass ratio] 0.5 {ratio} [facility] Serum or plasma anion gap de terminationon 09-30-2023 Anion gap [Moles/Vol] 25.6 mmol/L [facility] Specific gravity Auto test s trip (U) [Rel density]on 09-30-2023 Specific gravity (U) [Rel density] CLEAR CLEAR [facility] Urine bacteria detection by automated methodon 09-30-2023 Bacteria Auto Ql (U) NONE SEEN #/HPF NONE SEEN [facility] Urine glucose measurement by test strip (mass/volume)on 09-30-2023 Glucose Test strip (U) [Mass/Vol] 500 mg/dL Abnormal NEGATIVE [facility] Urine hemoglobin detection b y automated test stripon 09-30-2023 Hemoglobin Auto test strip Ql (U) TRACE-I NEGATIVE [facility] Urine nitrite detection by a utomated test stripon 09-30-2023 Nitrite Auto test strip Ql (U) Negative NEGATIVE [facility] Urine sediment crystal ident ification by light microscopyon 09-30-2023 Crystals LM Nom (Urine sed) None Seen #/HPF None Seen [facility] Urine sediment leukocyte cou nt by microscopy (number/high power field)on 09-30-2023 WBC LM.HPF (Urine sed) [#/Area] NONE SEEN #/HPF NONE SEEN [facility] Urobilinogen Auto test strip (U) [Mass/Vol]on 09-30-2023 Urobilinogen Qn (U) 0.2 {Brendan'U}/dL 0.2-1.0 [facility] pH Auto test strip (U)on pH (U) 5.5 [pH] 5.0-9.0 [facility] Guy 09-21-2023 L Specimen: [id number] Received: 09/21/23 Status: COLTON Nath Num: [id number] Spec Type: Surgical Subm Dr: Paula Elias DPM, MS Tissues: A Bone Fragments - Other than Path Fracture Procedures: HE, Gross/Micro L3, Decalcification Age/ Patient Sex Location Account Attending Physician Solomon Feldman SR 58/M LABELL [id number] Paula Elias DPM, MS SPEC NUM: [id number] RECD: 09/21/23 STATUS: COLTON YAPLinda NUM: [id number] SHAKIRA: 09/21/[address]: Paula Elias DPM, MS ENTERED: 09/21/23 [facility] DR: SPEC TYPE: Surgical DEPT: RAMSEY MARCANO ENTERED BY: [id number] RECV BY: [id number] ORDERED: HE, Gross/Micro L3, Decalcification ORDERED: HE, [...] excisional debridement with skin substitute. CPT Codes 66796, 37775 Specimen: [id number] Received: 09/21/23 Status: COLTON Nath Num: [id number] Spec Type: Surgical Subm Dr: Paula Elias DPM, MS Tissues: A Bone Fragments - Other than Path Fracture Procedures: Pham LAWSON/Joana L3, Decalcification Patient: Solomon Feldman SR [id number] (Continued) Signed (signature on file) Victor Hugo Sotelo MD 09/26/23 0843 Normal [facility] Laboratory - Microbiology an d Antimicrobial susceptibilityOrdered By: Jenaro Lynch on 09-21-2023 Microscopic observation Gram stain Nom (Unsp spec) [facility] Activated partial thrombopla stin time (aPTT) in platelet poor plasma by coagulation aon 09-18-2023 aPTT Coag (PPP) [Time] 32.0 s 22.3-36.2 [facility] Basophils Auto (Bld) [#/Vol] on 09-18-2023 Basophils (Bld) [#/Vol] 0.1 10 3/uL 0.0-0.1 [facility] Basophils/100 WBC Auto (Bld) on 09-18-2023 Basophils/100 WBC (Bld) 0.9 % 0.2-2.0 [facility] Eosinophils/100 WBC Auto (Bl d)on 09-18-2023 Eosinophils/100 WBC (Bld) 2.3 % 0.9-7.0 [facility] Erythrocyte distribution wid th Auto (RBC) [Ratio]on 09-18-2023 Erythrocyte distribution width (RBC) [Ratio] 18.8 % High 11.0-15.0 [facility] Estimated glomerular filtrat ion rate (GFR) non- Americanon 09-18-2023 GFR/1.73 sq M.predicted among non-blacks MDRD (S/P/Bld) [Vol rate/Area] 27 mL/min/{1.73_m2} Low >=60 [facility] Hematocrit Auto (Bld) [Volum e fraction]on 09-18-2023 Hematocrit (Bld) [Volume fraction] 35.0 % Low 42.0-54.0 [facility] Hemoglobin [Mass/volume] in Bloodon 09-18-2023 Hemoglobin (Bld) [Mass/Vol] 10.3 g/dL Low 14.0-18.0 [facility] INR in Platelet poor plasma by Coagulation assayon 09-18-2023 INR Coag (PPP) [Relative time] 1.08 {INR} [facility] Comment on above: DESIRED INR:2.0-3.0 CONDITIONS NOT LISTED BELOW2.5-3.5 FOR PROSTHETIC HEART VALVE REPLACEMENT2.5-3.5 RECURRENT THROMBOSIS Laboratory - Chemistry and C hemistry - challengeon 09-18-2023 Calcium [Mass/Vol] 8.9 mg/dL 8.5-10.1 [facility] Chloride [Moles/Vol] 97 mmol/L Low 98-107 [facility] CO2 [Moles/Vol] 28.2 mmol/L 21.0-32.0 [facility] Creatinine [Mass/Vol] 2.47 mg/dL High 0.70-1.30 [facility] GFR/1.73 sq M.predicted MDRD (S/P/Bld) [Vol rate/Area] 33 mL/min/{1.73_m2} Low >=60 [facility] Glucose [Mass/Vol] 200 mg/dL High 74-106 [facility] Potassium [Moles/Vol] 3.7 mmol/L 3.5-5.1 [facility] Sodium [Moles/Vol] 137 mmol/L 136-145 [facility] Urea nitrogen [Mass/Vol] 23.0 mg/dL High 7.0-18.0 [facility] Urea nitrogen/Creatinine [Mass ratio] 9.3 mg/mg [facility] Laboratory - Hematology and Cell countson 09-18-2023 Immature granulocytes/100 WBC (Bld) 0.6 % High 0.0-0.5 [facility] Leukocytes [#/volume] correc jorge for nucleated erythrocytes in Blood by Automated counon 09-18-2023 WBC corrected for nucl RBC Auto (Bld) [#/Vol] 12.4 10 3/uL High 4.0-11.0 [facility] Lymphocytes Auto (Bld) [#/Vo l]on 09-18-2023 Lymphocytes (Bld) [#/Vol] 2.4 10 3/uL 1.2-3.8 [facility] Lymphocytes/100 WBC Auto (Bl d)on 09-18-2023 Lymphocytes/100 WBC (Bld) 19.6 % Low 20.5-60.0 [facility] MCH Auto (RBC) [Entitic mass ]on 09-18-2023 MCH (RBC) [Entitic mass] 22.2 pg Low 25.9-34.0 [facility] MCHC Auto (RBC) [Mass/Vol]on 09-18-2023 MCHC (RBC) [Mass/Vol] 29.4 g/dL Low 29.9-35.2 [facility] MCV Auto (RBC) [Entitic vol] on 09-18-2023 MCV (RBC) [Entitic vol] 75.3 fL Low 80.0-94.0 [facility] Monocytes Auto (Bld) [#/Vol] on 09-18-2023 Monocytes (Bld) [#/Vol] 1.2 10 3/uL High 0.3-0.8 [facility] Monocytes/100 WBC Auto (Bld) on 09-18-2023 Monocytes/100 WBC (Bld) 10.0 % 1.7-12.0 [facility] Neutrophils Auto (Bld) [#/Vo l]on 09-18-2023 Neutrophils (Bld) [#/Vol] 8.2 10 3/uL High 1.4-6.5 [facility] Neutrophils/100 WBC Auto (Bl d)on 09-18-2023 Neutrophils/100 WBC (Bld) 66.6 % 43.0-75.0 [facility] No Panel Informationon 09-17 Eosinophils # (Auto) 0.3 10 3/uL 0.0-0.7 [facility] Immature Granulocyte # (Auto) 0.07 10 3/uL High 0.00-0.03 [facility] Platelet mean volume Auto (B ld) [Entitic vol]on 09-18-2023 Platelet mean volume (Bld) [Entitic vol] 10.9 fL 9.5-13.5 [facility] Platelets Auto (Bld) [#/Vol] on 09-18-2023 Platelets (Bld) [#/Vol] 300 10 3/uL 150-450 [facility] Prothrombin time (PT)on 09-03 PT Coag (PPP) [Time] 11.4 s 9.0-11.6 [facility] RBC Auto (Bld) [#/Vol]on RBC (Bld) [#/Vol] 4.65 10 6/uL Low 4.70-6.10 [facility] Serum or plasma anion gap de terminationon 09-18-2023 Anion gap [Moles/Vol] 15.5 mmol/L [facility] - Microbiology an d Antimicrobial susceptibilityOrdered By: Jenaro Lynch on 08-10-2023 Microscopic observation Gram stain Nom (Unsp spec) [facility] No Panel Informationon 08-09 Fungal Smear Result [facility] Miscellaneous Test Comment See comment [facility] Comment on above: Specimen Source: JONO TRT - Foot Right - Foot Rt - 604.000 No Panel InformationOrdered By: Jenaro Lynch on 08-10-2023 Acid Fast Culture [facility] Acid Fast Smear [facility] AFB Specimen Processing [facility] Tissue Culture [facility] Basophils Auto (Bld) [#/Vol] on 08-07-2023 Basophils (Bld) [#/Vol] 0.1 10 3/uL 0.0-0.1 [facility] Basophils/100 WBC Auto (Bld) on 08-07-2023 Basophils/100 WBC (Bld) 0.7 % 0.2-2.0 [facility] Eosinophils/100 WBC Auto (Bl d)on 08-07-2023 Eosinophils/100 WBC (Bld) 3.9 % 0.9-7.0 [facility] Erythrocyte distribution wid th Auto (RBC) [Ratio]on 08-07-2023 Erythrocyte distribution width (RBC) [Ratio] 16.9 % 11.0-15.0 [facility] Estimated glomerular filtrat ion rate (GFR) non- Americanon 08-07-2023 GFR/1.73 sq M.predicted among non-blacks MDRD (S/P/Bld) [Vol rate/Area] 42 mL/min/{1.73_m2} >=60 [facility] Globulin Calc (S) [Mass/Vol] on 08-07-2023 Globulin (S) [Mass/Vol] 4.0 g/dL [facility] Hematocrit Auto (Bld) [Volum e fraction]on 08-07-2023 Hematocrit (Bld) [Volume fraction] 31.5 % 42.0-54.0 [facility] Hemoglobin [Mass/volume] in Bloodon 08-07-2023 Hemoglobin (Bld) [Mass/Vol] 9.4 g/dL 14.0-18.0 [facility] Laboratory - Chemistry and C hemistry - challengeon 08-07-2023 Albumin [Mass/Vol] 2.1 g/dL 3.4-5.0 [facility] ALP [Catalytic activity/Vol] 144 U/L 46-116 [facility] ALT [Catalytic activity/Vol] 21 U/L 16-63 [facility] AST [Catalytic activity/Vol] 25 U/L 15-37 [facility] Bilirubin [Mass/Vol] 0.4 mg/dL 0.2-1.0 [facility] Calcium [Mass/Vol] 8.1 mg/dL 8.5-10.1 [facility] Chloride [Moles/Vol] 102 mmol/L 98-107 [facility] CO2 [Moles/Vol] 24.7 mmol/L 21.0-32.0 [facility] Creatinine [Mass/Vol] 1.70 mg/dL 0.70-1.30 [facility] GFR/1.73 sq M.predicted MDRD (S/P/Bld) [Vol rate/Area] 50 mL/min/{1.73_m2} >=60 [facility] Glucose [Mass/Vol] 188 mg/dL 74-106 [facility] Potassium [Moles/Vol] 4.6 mmol/L 3.5-5.1 [facility] Protein [Mass/Vol] 6.1 g/dL 6.4-8.2 [facility] Sodium [Moles/Vol] 135 mmol/L 136-145 [facility] Urea nitrogen [Mass/Vol] 33.0 mg/dL 7.0-18.0 [facility] Urea nitrogen/Creatinine [Mass ratio] 19.4 mg/mg [facility] Laboratory - Hematology and Cell countson 08-07-2023 Immature granulocytes/100 WBC (Bld) 0.7 % 0.0-0.5 [facility] Leukocytes [#/volume] correc jorge for nucleated erythrocytes in Blood by Automated counon 08-07-2023 WBC corrected for nucl RBC Auto (Bld) [#/Vol] 12.0 10 3/uL 4.0-11.0 [facility] Lymphocytes Auto (Bld) [#/Vo l]on 08-07-2023 Lymphocytes (Bld) [#/Vol] 1.5 10 3/uL 1.2-3.8 [facility] Lymphocytes/100 WBC Auto (Bl d)on 08-07-2023 Lymphocytes/100 WBC (Bld) 12.4 % 20.5-60.0 [facility] MCH Auto (RBC) [Entitic mass ]on 08-07-2023 MCH (RBC) [Entitic mass] 22.5 pg 25.9-34.0 [facility] MCHC Auto (RBC) [Mass/Vol]on 08-07-2023 MCHC (RBC) [Mass/Vol] 29.8 g/dL 29.9-35.2 [facility] MCV Auto (RBC) [Entitic vol] on 08-07-2023 MCV (RBC) [Entitic vol] 75.4 fL 80.0-94.0 [facility] Monocytes Auto (Bld) [#/Vol] on 08-07-2023 Monocytes (Bld) [#/Vol] 1.2 10 3/uL 0.3-0.8 [facility] Monocytes/100 WBC Auto (Bld) on 08-07-2023 Monocytes/100 WBC (Bld) 10.1 % 1.7-12.0 [facility] Neutrophils Auto (Bld) [#/Vo l]on 08-07-2023 Neutrophils (Bld) [#/Vol] 8.7 10 3/uL 1.4-6.5 [facility] Neutrophils/100 WBC Auto (Bl d)on 08-07-2023 Neutrophils/100 WBC (Bld) 72.2 % 43.0-75.0 [facility] No Panel Informationon 08-06 Eosinophils # (Auto) 0.5 10 3/uL 0.0-0.7 [facility] Immature Granulocyte # (Auto) 0.09 10 3/uL 0.00-0.03 [facility] Platelet mean volume Auto (B ld) [Entitic vol]on 08-07-2023 Platelet mean volume (Bld) [Entitic vol] 11.7 fL 9.5-13.5 [facility] Platelets Auto (Bld) [#/Vol] on 08-07-2023 Platelets (Bld) [#/Vol] 222 10 3/uL 150-450 [facility] RBC Auto (Bld) [#/Vol]on RBC (Bld) [#/Vol] 4.18 10 6/uL 4.70-6.10 [facility] Serum or plasma albumin/glob ulin mass ratioon 08-07-2023 Albumin/Globulin [Mass ratio] 0.5 {ratio} [facility] Serum or plasma anion gap de terminationon 08-07-2023 Anion gap [Moles/Vol] 12.9 mmol/L [facility] Basophils Auto (Bld) [#/Vol] on 08-06-2023 Basophils (Bld) [#/Vol] 0.1 10 3/uL 0.0-0.1 [facility] Basophils/100 WBC Auto (Bld) on 08-06-2023 Basophils/100 WBC (Bld) 0.7 % 0.2-2.0 [facility] Eosinophils/100 WBC Auto (Bl d)on 08-06-2023 Eosinophils/100 WBC (Bld) 3.3 % 0.9-7.0 [facility] Erythrocyte distribution wid th Auto (RBC) [Ratio]on 08-06-2023 Erythrocyte distribution width (RBC) [Ratio] 17.0 % 11.0-15.0 [facility] Estimated glomerular filtrat ion rate (GFR) non- Americanon 08-06-2023 GFR/1.73 sq M.predicted among non-blacks MDRD (S/P/Bld) [Vol rate/Area] 36 mL/min/{1.73_m2} >=60 [facility] Globulin Calc (S) [Mass/Vol] on 08-06-2023 Globulin (S) [Mass/Vol] 4.0 g/dL [facility] Hematocrit Auto (Bld) [Volum e fraction]on 08-06-2023 Hematocrit (Bld) [Volume fraction] 30.1 % 42.0-54.0 [facility] Hemoglobin [Mass/volume] in Bloodon 08-06-2023 Hemoglobin (Bld) [Mass/Vol] 8.8 g/dL 14.0-18.0 [facility] Laboratory - Chemistry and C hemistry - challengeon 08-06-2023 Albumin [Mass/Vol] 2.0 g/dL 3.4-5.0 [facility] ALP [Catalytic activity/Vol] 127 U/L 46-116 [facility] ALT [Catalytic activity/Vol] 14 U/L 16-63 [facility] AST [Catalytic activity/Vol] 16 U/L 15-37 [facility] Bilirubin [Mass/Vol] 0.4 mg/dL 0.2-1.0 [facility] Calcium [Mass/Vol] 7.9 mg/dL 8.5-10.1 [facility] Chloride [Moles/Vol] 99 mmol/L 98-107 [facility] CO2 [Moles/Vol] 25.0 mmol/L 21.0-32.0 [facility] Creatinine [Mass/Vol] 1.95 mg/dL 0.70-1.30 [facility] GFR/1.73 sq M.predicted MDRD (S/P/Bld) [Vol rate/Area] 43 mL/min/{1.73_m2} >=60 [facility] Glucose [Mass/Vol] 297 mg/dL 74-106 [facility] Potassium [Moles/Vol] 4.4 mmol/L 3.5-5.1 [facility] Protein [Mass/Vol] 6.0 g/dL 6.4-8.2 [facility] Sodium [Moles/Vol] 133 mmol/L 136-145 [facility] Urea nitrogen [Mass/Vol] 28.0 mg/dL 7.0-18.0 [facility] Urea nitrogen/Creatinine [Mass ratio] 14.4 mg/mg [facility] Laboratory - Hematology and Cell countson 08-06-2023 Immature granulocytes/100 WBC (Bld) 0.4 % 0.0-0.5 [facility] Leukocytes [#/volume] correc jorge for nucleated erythrocytes in Blood by Automated counon 08-06-2023 WBC corrected for nucl RBC Auto (Bld) [#/Vol] 10.1 10 3/uL 4.0-11.0 [facility] Lymphocytes Auto (Bld) [#/Vo l]on 08-06-2023 Lymphocytes (Bld) [#/Vol] 1.5 10 3/uL 1.2-3.8 [facility] Lymphocytes/100 WBC Auto (Bl d)on 08-06-2023 Lymphocytes/100 WBC (Bld) 14.4 % 20.5-60.0 [facility] MCH Auto (RBC) [Entitic mass ]on 08-06-2023 MCH (RBC) [Entitic mass] 22.5 pg 25.9-34.0 [facility] MCHC Auto (RBC) [Mass/Vol]on 08-06-2023 MCHC (RBC) [Mass/Vol] 29.2 g/dL 29.9-35.2 [facility] MCV Auto (RBC) [Entitic vol] on 08-06-2023 MCV (RBC) [Entitic vol] 77.0 fL 80.0-94.0 [facility] Monocytes Auto (Bld) [#/Vol] on 08-06-2023 Monocytes (Bld) [#/Vol] 1.1 10 3/uL 0.3-0.8 [facility] Monocytes/100 WBC Auto (Bld) on 08-06-2023 Monocytes/100 WBC (Bld) 10.4 % 1.7-12.0 [facility] Neutrophils Auto (Bld) [#/Vo l]on 08-06-2023 Neutrophils (Bld) [#/Vol] 7.2 10 3/uL 1.4-6.5 [facility] Neutrophils/100 WBC Auto (Bl d)on 08-06-2023 Neutrophils/100 WBC (Bld) 70.8 % 43.0-75.0 [facility] No Panel Informationon 08-05 Vancomycin Level Trough 13.6 ug/mL 5.0-20.0 [facility] Eosinophils # (Auto) 0.3 10 3/uL 0.0-0.7 [facility] Immature Granulocyte # (Auto) 0.04 10 3/uL 0.00-0.03 [facility] Platelet mean volume Auto (B ld) [Entitic vol]on 08-06-2023 Platelet mean volume (Bld) [Entitic vol] 12.2 fL 9.5-13.5 [facility] Platelets Auto (Bld) [#/Vol] on 08-06-2023 Platelets (Bld) [#/Vol] 190 10 3/uL 150-450 [facility] RBC Auto (Bld) [#/Vol]on RBC (Bld) [#/Vol] 3.91 10 6/uL 4.70-6.10 [facility] Serum or plasma albumin/glob ulin mass ratioon 08-06-2023 Albumin/Globulin [Mass ratio] 0.5 {ratio} [facility] Serum or plasma anion gap de terminationon 08-06-2023 Anion gap [Moles/Vol] 13.4 mmol/L [facility] Automated epithelial cells c ount in urine sediment (number/area)on 08-05-2023 Epithelial cells Auto (Urine sed) [#/Area] RARE #/LPF NONE/RARE [facility] Automated leukocytes count i n urine sediment (number/area)on 08-05-2023 WBC Auto (Urine sed) [#/Area] NONE SEEN #/HPF 0-2 [facility] Automated urine specific gra vity by refractometryon 08-05-2023 Specific gravity Refractometry automated (U) [Rel density] <=1.005 1.005-1.02 5 [facility] Basophils Auto (Bld) [#/Vol] on 08-05-2023 Basophils (Bld) [#/Vol] 0.1 10 3/uL 0.0-0.1 [facility] Basophils/100 WBC Auto (Bld) on 08-05-2023 Basophils/100 WBC (Bld) 0.7 % 0.2-2.0 [facility] Bilirubin Auto test strip (U ) [Mass/Vol]on 08-05-2023 Bilirubin (U) [Mass/Vol] Negative NEGATIVE [facility] Casts typing in urine sedime nt by light microscopyon 08-05-2023 Casts LM Nom (Urine sed) NONE SEEN #/LPF NONE SEEN [facility] Color Auto (U)on 08-05-2023 Color (U) LT. YELLOW YELLOW [facility] Eosinophils/100 WBC Auto (Bl d)on 08-05-2023 Eosinophils/100 WBC (Bld) 2.5 % 0.9-7.0 [facility] Erythrocyte distribution wid th Auto (RBC) [Ratio]on 08-05-2023 Erythrocyte distribution width (RBC) [Ratio] 16.8 % 11.0-15.0 [facility] Estimated glomerular filtrat ion rate (GFR) non- Americanon 08-05-2023 GFR/1.73 sq M.predicted among non-blacks MDRD (S/P/Bld) [Vol rate/Area] 42 mL/min/{1.73_m2} >=60 [facility] Globulin Calc (S) [Mass/Vol] on 08-05-2023 Globulin (S) [Mass/Vol] 4.1 g/dL [facility] Glucose mean value [Mass/vol ume] in Blood Estimated from glycated hemoglobinon 08-05-2023 Average glucose Estimated from glycated hemoglobin (Bld) [Mass/Vol] 214 mg/dL [facility] Hematocrit Auto (Bld) [Volum e fraction]on 08-05-2023 Hematocrit (Bld) [Volume fraction] 31.8 % 42.0-54.0 [facility] Hemoglobin [Mass/volume] in Bloodon 08-05-2023 Hemoglobin (Bld) [Mass/Vol] 9.4 g/dL 14.0-18.0 [facility] Ketones Auto test strip (U) [Mass/Vol]on 08-05-2023 Ketones (U) [Mass/Vol] Negative NEGATIVE [facility] - Chemistry and C hemistry - challengeon 08-05-2023 Albumin [Mass/Vol] 2.3 g/dL 3.4-5.0 [facility] ALP [Catalytic activity/Vol] 111 U/L 46-116 [facility] ALT [Catalytic activity/Vol] 11 U/L 16-63 [facility] AST [Catalytic activity/Vol] 11 U/L 15-37 [facility] Bilirubin [Mass/Vol] 0.5 mg/dL 0.2-1.0 [facility] Calcium [Mass/Vol] 8.1 mg/dL 8.5-10.1 [facility] Chloride [Moles/Vol] 101 mmol/L 98-107 [facility] CO2 [Moles/Vol] 25.6 mmol/L 21.0-32.0 [facility] Creatinine [Mass/Vol] 1.68 mg/dL 0.70-1.30 [facility] GFR/1.73 sq M.predicted MDRD (S/P/Bld) [Vol rate/Area] 51 mL/min/{1.73_m2} >=60 [facility] Glucose [Mass/Vol] 111 mg/dL 74-106 [facility] Potassium [Moles/Vol] 3.7 mmol/L 3.5-5.1 [facility] Protein [Mass/Vol] 6.4 g/dL 6.4-8.2 [facility] Sodium [Moles/Vol] 138 mmol/L 136-145 [facility] Urea nitrogen [Mass/Vol] 17.0 mg/dL 7.0-18.0 [facility] Urea nitrogen/Creatinine [Mass ratio] 10.1 mg/mg [facility] Laboratory - Hematology and Cell countson 08-05-2023 HbA1c (Bld) [Mass fraction] 9.1 % 4.5-6.2 [facility] Comment on above: ADA RECOMMENDED LIMI T 4.0 - 6.0ADA THERAPEUTIC TARGET < 7.0ACTION SUGGESTED> 7.0 Immature granulocytes/100 WBC (Bld) 0.4 % 0.0-0.5 [facility] Laboratory - Microbiology an d Antimicrobial susceptibilityOrdered By: Jenaro Lynch on 08-05-2023 Microscopic observation Gram stain Nom (Unsp spec) [facility] Leukocytes [#/volume] correc jorge for nucleated erythrocytes in Blood by Automated counon 08-05-2023 WBC corrected for nucl RBC Auto (Bld) [#/Vol] 12.3 10 3/uL 4.0-11.0 [facility] Lymphocytes Auto (Bld) [#/Vo l]on 08-05-2023 Lymphocytes (Bld) [#/Vol] 1.5 10 3/uL 1.2-3.8 [facility] Lymphocytes/100 WBC Auto (Bl d)on 08-05-2023 Lymphocytes/100 WBC (Bld) 11.8 % 20.5-60.0 [facility] MCH Auto (RBC) [Entitic mass ]on 08-05-2023 MCH (RBC) [Entitic mass] 22.4 pg 25.9-34.0 [facility] MCHC Auto (RBC) [Mass/Vol]on 08-05-2023 MCHC (RBC) [Mass/Vol] 29.6 g/dL 29.9-35.2 [facility] MCV Auto (RBC) [Entitic vol] on 08-05-2023 MCV (RBC) [Entitic vol] 75.9 fL 80.0-94.0 [facility] Monocytes Auto (Bld) [#/Vol] on 08-05-2023 Monocytes (Bld) [#/Vol] 1.3 10 3/uL 0.3-0.8 [facility] Monocytes/100 WBC Auto (Bld) on 08-05-2023 Monocytes/100 WBC (Bld) 10.7 % 1.7-12.0 [facility] Mucus LM Ql (Urine sed)on Mucus Ql (Urine sed) NONE SEEN NONE SEEN [facility] Neutrophils Auto (Bld) [#/Vo l]on 08-05-2023 Neutrophils (Bld) [#/Vol] 9.1 10 3/uL 1.4-6.5 [facility] Neutrophils/100 WBC Auto (Bl d)on 08-05-2023 Neutrophils/100 WBC (Bld) 73.9 % 43.0-75.0 [facility] No Panel Informationon 08-04 Eosinophils # (Auto) 0.3 10 3/uL 0.0-0.7 [facility] Immature Granulocyte # (Auto) 0.05 10 3/uL 0.00-0.03 [facility] Platelet mean volume Auto (B ld) [Entitic vol]on 08-05-2023 Platelet mean volume (Bld) [Entitic vol] 11.2 fL 9.5-13.5 [facility] Platelets Auto (Bld) [#/Vol] on 08-05-2023 Platelets (Bld) [#/Vol] 184 10 3/uL 150-450 [facility] Protein Auto test strip (U) [Mass/Vol]on 08-05-2023 Protein (U) [Mass/Vol] Negative NEG/TRACE [facility] RBC Auto (Bld) [#/Vol]on RBC (Bld) [#/Vol] 4.19 10 6/uL 4.70-6.10 [facility] Serum or plasma albumin/glob ulin mass ratioon 08-05-2023 Albumin/Globulin [Mass ratio] 0.6 {ratio} [facility] Serum or plasma anion gap de terminationon 08-05-2023 Anion gap [Moles/Vol] 15.1 mmol/L [facility] Specific gravity Auto test s trip (U) [Rel density]on 08-05-2023 Specific gravity (U) [Rel density] CLEAR CLEAR [facility] Urine bacteria detection by automated methodon 08-05-2023 Bacteria Auto Ql (U) TRACE #/HPF NONE SEEN [facility] Urine glucose measurement by test strip (mass/volume)on 08-05-2023 Glucose Test strip (U) [Mass/Vol] >=1000 mg/dL NEGATIVE [facility] Urine hemoglobin detection b y automated test stripon 08-05-2023 Hemoglobin Auto test strip Ql (U) Negative NEGATIVE [facility] Urine nitrite detection by a utomated test stripon 08-05-2023 Nitrite Auto test strip Ql (U) Negative NEGATIVE [facility] Urine sediment crystal ident ification by light microscopyon 08-05-2023 Crystals LM Nom (Urine sed) None Seen #/HPF None Seen [facility] Urine sediment leukocyte cou nt by microscopy (number/high power field)on 08-05-2023 WBC LM.HPF (Urine sed) [#/Area] NONE SEEN #/HPF NONE SEEN [facility] Urobilinogen Auto test strip (U) [Mass/Vol]on 08-05-2023 Urobilinogen Qn (U) 0.2 {Brendan'U}/dL 0.2-1.0 [facility] pH Auto test strip (U)on pH (U) 6.0 [pH] 5.0-9.0 [facility] Basophils Auto (Bld) [#/Vol] on 08-04-2023 Basophils (Bld) [#/Vol] 0.1 10 3/uL 0.0-0.1 [facility] Basophils/100 WBC Auto (Bld) on 08-04-2023 Basophils/100 WBC (Bld) 0.8 % 0.2-2.0 [facility] Eosinophils/100 WBC Auto (Bl d)on 08-04-2023 Eosinophils/100 WBC (Bld) 2.8 % 0.9-7.0 [facility] Erythrocyte distribution wid th Auto (RBC) [Ratio]on 08-04-2023 Erythrocyte distribution width (RBC) [Ratio] 16.9 % 11.0-15.0 [facility] Estimated glomerular filtrat ion rate (GFR) non- Americanon 08-04-2023 GFR/1.73 sq M.predicted among non-blacks MDRD (S/P/Bld) [Vol rate/Area] 33 mL/min/{1.73_m2} >=60 [facility] Globulin Calc (S) [Mass/Vol] on 08-04-2023 Globulin (S) [Mass/Vol] 4.4 g/dL [facility] Hematocrit Auto (Bld) [Volum e fraction]on 08-04-2023 Hematocrit (Bld) [Volume fraction] 32.6 % 42.0-54.0 [facility] Hemoglobin [Mass/volume] in Bloodon 08-04-2023 Hemoglobin (Bld) [Mass/Vol] 9.6 g/dL 14.0-18.0 [facility] INR in Platelet poor plasma by Coagulation assayon 08-04-2023 INR Coag (PPP) [Relative time] 1.05 {INR} [facility] Comment on above: DESIRED INR:2.0-3.0 CONDITIONS NOT LISTED BELOW2.5-3.5 FOR PROSTHETIC HEART VALVE REPLACEMENT2.5-3.5 RECURRENT THROMBOSIS Laboratory - Chemistry and C hemistry - challengeon 08-04-2023 Albumin [Mass/Vol] 2.4 g/dL 3.4-5.0 [facility] ALP [Catalytic activity/Vol] 109 U/L 46-116 [facility] ALT [Catalytic activity/Vol] 9 U/L 16-63 [facility] AST [Catalytic activity/Vol] U/L 15-37 [facility] Bilirubin [Mass/Vol] 0.4 mg/dL 0.2-1.0 [facility] Calcium [Mass/Vol] 8.0 mg/dL 8.5-10.1 [facility] Chloride [Moles/Vol] 96 mmol/L 98-107 [facility] CO2 [Moles/Vol] 29.2 mmol/L 21.0-32.0 [facility] Creatinine [Mass/Vol] 2.06 mg/dL 0.70-1.30 [facility] GFR/1.73 sq M.predicted MDRD (S/P/Bld) [Vol rate/Area] 40 mL/min/{1.73_m2} >=60 [facility] Glucose [Mass/Vol] 329 mg/dL 74-106 [facility] Potassium [Moles/Vol] 3.5 mmol/L 3.5-5.1 [facility] Protein [Mass/Vol] 6.8 g/dL 6.4-8.2 [facility] Sodium [Moles/Vol] 132 mmol/L 136-145 [facility] Urea nitrogen [Mass/Vol] 20.0 mg/dL 7.0-18.0 [facility] Urea nitrogen/Creatinine [Mass ratio] 9.7 mg/mg [facility] Laboratory - Hematology and Cell countson 08-04-2023 ESR (Bld) [Velocity] 89 mm/h <=20 [facility] Immature granulocytes/100 WBC (Bld) 0.3 % 0.0-0.5 [facility] Laboratory - Microbiology an d Antimicrobial susceptibilityOrdered By: Jenaro Lynch on 08-04-2023 Microscopic observation Gram stain Nom (Unsp spec) [facility] Leukocytes [#/volume] correc jorge for nucleated erythrocytes in Blood by Automated counon 08-04-2023 WBC corrected for nucl RBC Auto (Bld) [#/Vol] 11.6 10 3/uL 4.0-11.0 [facility] Lymphocytes Auto (Bld) [#/Vo l]on 08-04-2023 Lymphocytes (Bld) [#/Vol] 1.7 10 3/uL 1.2-3.8 [facility] Lymphocytes/100 WBC Auto (Bl d)on 08-04-2023 Lymphocytes/100 WBC (Bld) 14.9 % 20.5-60.0 [facility] MCH Auto (RBC) [Entitic mass ]on 08-04-2023 MCH (RBC) [Entitic mass] 22.3 pg 25.9-34.0 [facility] MCHC Auto (RBC) [Mass/Vol]on 08-04-2023 MCHC (RBC) [Mass/Vol] 29.4 g/dL 29.9-35.2 [facility] MCV Auto (RBC) [Entitic vol] on 08-04-2023 MCV (RBC) [Entitic vol] 75.8 fL 80.0-94.0 [facility] Monocytes Auto (Bld) [#/Vol] on 08-04-2023 Monocytes (Bld) [#/Vol] 1.2 10 3/uL 0.3-0.8 [facility] Monocytes/100 WBC Auto (Bld) on 08-04-2023 Monocytes/100 WBC (Bld) 10.4 % 1.7-12.0 [facility] Neutrophils Auto (Bld) [#/Vo l]on 08-04-2023 Neutrophils (Bld) [#/Vol] 8.2 10 3/uL 1.4-6.5 [facility] Neutrophils/100 WBC Auto (Bl d)on 08-04-2023 Neutrophils/100 WBC (Bld) 70.8 % 43.0-75.0 [facility] No Panel InformationOrdered By: Jenaro Lynch on 08-04-2023 Blood Culture 2 [facility] Blood Culture 1 [facility] Wound Culture [facility] No Panel Informationon 08-03 Aerobic & Anaerobic Susceptibility [facility] Miscellaneous Test Comment See comment [facility] Comment on above: Specimen Source: JONO T - Foot - Foot - 603.950 C-Reactive Protein, Quantitative 11.62 mg/dL <=0.50 [facility] Eosinophils # (Auto) 0.3 10 3/uL 0.0-0.7 [facility] Immature Granulocyte # (Auto) 0.04 10 3/uL 0.00-0.03 [facility] Platelet mean volume Auto (B ld) [Entitic vol]on 08-04-2023 Platelet mean volume (Bld) [Entitic vol] 11.5 fL 9.5-13.5 [facility] Platelets Auto (Bld) [#/Vol] on 08-04-2023 Platelets (Bld) [#/Vol] 206 10 3/uL 150-450 [facility] Prothrombin time (PT)on PT Coag (PPP) [Time] 11.1 s 9.0-11.6 [facility] RBC Auto (Bld) [#/Vol]on RBC (Bld) [#/Vol] 4.30 10 6/uL 4.70-6.10 [facility] Serum or plasma albumin/glob ulin mass ratioon 08-04-2023 Albumin/Globulin [Mass ratio] 0.5 {ratio} [facility] Serum or plasma anion gap de terminationon 08-04-2023 Anion gap [Moles/Vol] 10.3 mmol/L [facility] Serum procalcitonin measurem enton 08-04-2023 Procalcitonin [Mass/Vol] 0.10 ng/mL 0.00-0.50 [facility] Basophils Auto (Bld) [#/Vol] on 08-03-2023 Basophils (Bld) [#/Vol] 0.1 10 3/uL 0.0-0.1 [facility] Basophils/100 WBC Auto (Bld) on 08-03-2023 Basophils/100 WBC (Bld) 0.7 % 0.2-2.0 [facility] Eosinophils/100 WBC Auto (Bl d)on 08-03-2023 Eosinophils/100 WBC (Bld) 1.8 % 0.9-7.0 [facility] Erythrocyte distribution wid th Auto (RBC) [Ratio]on 08-03-2023 Erythrocyte distribution width (RBC) [Ratio] 17.0 % 11.0-15.0 [facility] Estimated glomerular filtrat ion rate (GFR) non- Americanon 08-03-2023 GFR/1.73 sq M.predicted among non-blacks MDRD (S/P/Bld) [Vol rate/Area] 27 mL/min/{1.73_m2} >=60 [facility] Globulin Calc (S) [Mass/Vol] on 08-03-2023 Globulin (S) [Mass/Vol] 5.0 g/dL [facility] Hematocrit Auto (Bld) [Volum e fraction]on 08-03-2023 Hematocrit (Bld) [Volume fraction] 38.9 % 42.0-54.0 [facility] Hemoglobin [Mass/volume] in Bloodon 08-03-2023 Hemoglobin (Bld) [Mass/Vol] 11.8 g/dL 14.0-18.0 [facility] Laboratory - Chemistry and C hemistry - challengeon 08-03-2023 Lactate [Moles/Vol] 1.6 mmol/L 0.4-2.0 [facility] Albumin [Mass/Vol] 3.3 g/dL 3.4-5.0 [facility] ALP [Catalytic activity/Vol] 134 U/L 46-116 [facility] ALT [Catalytic activity/Vol] 13 U/L 16-63 [facility] AST [Catalytic activity/Vol] U/L 15-37 [facility] Bilirubin [Mass/Vol] 0.6 mg/dL 0.2-1.0 [facility] Calcium [Mass/Vol] 9.3 mg/dL 8.5-10.1 [facility] Chloride [Moles/Vol] 92 mmol/L 98-107 [facility] CO2 [Moles/Vol] 31.0 mmol/L 21.0-32.0 [facility] Creatinine [Mass/Vol] 2.45 mg/dL 0.70-1.30 [facility] GFR/1.73 sq M.predicted MDRD (S/P/Bld) [Vol rate/Area] 33 mL/min/{1.73_m2} >=60 [facility] Glucose [Mass/Vol] 310 mg/dL 74-106 [facility] Potassium [Moles/Vol] 3.7 mmol/L 3.5-5.1 [facility] Protein [Mass/Vol] 8.3 g/dL 6.4-8.2 [facility] Sodium [Moles/Vol] 133 mmol/L 136-145 [facility] Urea nitrogen [Mass/Vol] 23.0 mg/dL 7.0-18.0 [facility] Urea nitrogen/Creatinine [Mass ratio] 9.4 mg/mg [facility] Laboratory - Hematology and Cell countson 08-03-2023 ESR (Bld) [Velocity] 118 mm/h <=20 [facility] Immature granulocytes/100 WBC (Bld) 0.4 % 0.0-0.5 [facility] Leukocytes [#/volume] correc jorge for nucleated erythrocytes in Blood by Automated counon 08-03-2023 WBC corrected for nucl RBC Auto (Bld) [#/Vol] 14.6 10 3/uL 4.0-11.0 [facility] Lymphocytes Auto (Bld) [#/Vo l]on 08-03-2023 Lymphocytes (Bld) [#/Vol] 2.1 10 3/uL 1.2-3.8 [facility] Lymphocytes/100 WBC Auto (Bl d)on 08-03-2023 Lymphocytes/100 WBC (Bld) 14.3 % 20.5-60.0 [facility] MCH Auto (RBC) [Entitic mass ]on 08-03-2023 MCH (RBC) [Entitic mass] 22.6 pg 25.9-34.0 [facility] MCHC Auto (RBC) [Mass/Vol]on 08-03-2023 MCHC (RBC) [Mass/Vol] 30.3 g/dL 29.9-35.2 [facility] MCV Auto (RBC) [Entitic vol] on 08-03-2023 MCV (RBC) [Entitic vol] 74.4 fL 80.0-94.0 [facility] Monocytes Auto (Bld) [#/Vol] on 08-03-2023 Monocytes (Bld) [#/Vol] 1.4 10 3/uL 0.3-0.8 [facility] Monocytes/100 WBC Auto (Bld) on 08-03-2023 Monocytes/100 WBC (Bld) 9.4 % 1.7-12.0 [facility] Neutrophils Auto (Bld) [#/Vo l]on 08-03-2023 Neutrophils (Bld) [#/Vol] 10.7 10 3/uL 1.4-6.5 [facility] Neutrophils/100 WBC Auto (Bl d)on 08-03-2023 Neutrophils/100 WBC (Bld) 73.4 % 43.0-75.0 [facility] No Panel Informationon C-Reactive Protein, Quantitative 14.63 mg/dL <=0.50 [facility] Eosinophils # (Auto) 0.3 10 3/uL 0.0-0.7 [facility] Immature Granulocyte # (Auto) 0.06 10 3/uL 0.00-0.03 [facility] Venous Blood Partial Pressure CO2 44.8 mm[Hg] 40.0-52.0 [facility] Venous Blood pH 7.432 7.330-7.43 0 [facility] No Panel InformationOrdered By: Jenaro Lynch on 08-03-2023 Blood Culture 2 [facility] Blood Culture 1 [facility] Platelet mean volume Auto (B ld) [Entitic vol]on 08-03-2023 Platelet mean volume (Bld) [Entitic vol] 11.4 fL 9.5-13.5 [facility] Platelets Auto (Bld) [#/Vol] on 08-03-2023 Platelets (Bld) [#/Vol] 252 10 3/uL 150-450 [facility] RBC Auto (Bld) [#/Vol]on RBC (Bld) [#/Vol] 5.23 10 6/uL 4.70-6.10 [facility] Serum or plasma albumin/glob ulin mass ratioon 08-03-2023 Albumin/Globulin [Mass ratio] 0.7 {ratio} [facility] Serum or plasma anion gap de terminationon 08-03-2023 Anion gap [Moles/Vol] 13.7 mmol/L [facility] US venous duplex LE BIon US venous duplex LE BI [facility] [place] [address] Ultrasound Report Signed Patient: Solomon Feldman SR MR#: [id number] : 1965 Acct:[id number] Age/Sex: 57 / M ADM Date: 07/12/23 Loc: ER Room: Type: [facility] ER Attending Dr: Ordering Provider: Nancy [...] Howard Boss MD07/13/2023 11:56 AM Dictation Location: [place] [address] Tech: Nancy Pantoja Transcribed By: BOB 07/13/23 1156 Dictated By: Howard Boss MD 07/13/23 1156 Signed By: 07/13/23 1156 Normal [facility] US venous duplex UE LTon US venous duplex UE LT [facility] Main [address] [address] Ultrasound Report Signed Patient: Solomon Feldman SR MR#: [id number] : 1965 Acct:[id number] Age/Sex: 57 / M ADM Date: 07/12/23 Loc: ER Room: Type: [facility] ER Attending Dr: Ordering Provider: Nancy [...] Howard Boss MD07/13/2023 11:56 AM Dictation Location: [place] [address] Tech: Nancy Pantoja Transcribed By: BOB 07/13/23 1156 Dictated By: Howard Boss MD 07/13/23 1155 Signed By: 07/13/23 1156 Normal [facility] Activated partial thrombopla stin time (aPTT) in platelet poor plasma by coagulation aOrdered By: Nancy Wilson on 07-12-2023 aPTT Coag (PPP) [Time] 29.4 s 25.1-36.5 [facility] Comment on above: A hematocrit value g reater than 55% may lead to inaccurate results in coagulation testing. Patients having hematocrit values >55% require a special collection tube for coagulation studies. Please contact the laboratory at [phone] for redraw instructions. Alanine aminotransferase [En zymatic activity/volume] in Serum or PlasmaOrdered By: Nancy Wilosn on 07-12-2023 ALT [Catalytic activity/Vol] 9 U/L Normal 7-52 [facility] Comment on above: Performed By: #### P TT, CBC, PT, BNP, CMP, HS TROP, CK #### [facility] [address] [place] [address] Albumin [Mass/volume] in Ser um or Plasma by Bromocresol green (BCG) dye binding methoOrdered By: Nancy Wilson on 07-12-2023 Albumin BCG dye [Mass/Vol] 3.9 g/dL 3.5-5.7 [facility] Alkaline phosphatase [Enzyma tic activity/volume] in Serum or PlasmaOrdered By: Nancy Wilson on 07-12-2023 ALP [Catalytic activity/Vol] 106 U/L High 34-104 [facility] Comment on above: Performed By: #### P TT, CBC, PT, BNP, CMP, HS TROP, CK #### [address] Aspartate aminotransferase [ Enzymatic activity/volume] in Serum or PlasmaOrdered By: Nancy Wilson on 07-12-2023 AST [Catalytic activity/Vol] 8 U/L Low 13-39 [facility] Comment on above: Performed By: #### P TT, CBC, PT, BNP, CMP, HS TROP, CK #### [address] Automated basophil %Ordered By: Nancy Wilson on 07-12-2023 Basophils/100 WBC (Bld) 1.1 % Normal . [facility] Comment on above: Performed By: #### P TT, CBC, PT, BNP, CMP, HS TROP, CK #### [address] Automated basophil countOrde red By: Nancy Wilson on 07-12-2023 Basophils (Bld) [#/Vol] 0.1 10*3/uL Normal 0.0-0.2 [facility] Comment on above: Result Comment: PERF ORMED BY: [place] [address] PATHOLOGIST SEARCH PLANNER CLIFFORD LOBATO M.D. Performed By: #### P TT, CBC, PT, BNP, CMP, HS TROP, CK #### [address] Automated blood monocyte cou ntOrdered By: Nancy Wilson on 07-12-2023 Monocytes (Bld) [#/Vol] 1.0 10*3/uL High 0.0-0.8 [facility] Comment on above: Performed By: #### P TT, CBC, PT, BNP, CMP, HS TROP, CK #### [address] Automated eosinophil %Ordere d By: Nancy Wilson on 07-12-2023 Eosinophils/100 WBC (Bld) 3.3 % Normal . [facility] Comment on above: Performed By: #### P TT, CBC, PT, BNP, CMP, HS TROP, CK #### [address] Automated eosinophil countOr dered By: Nancy Wilson on 07-12-2023 Eosinophils (Bld) [#/Vol] 0.3 10*3/uL Normal 0.0-0.45 [facility] Comment on above: Performed By: #### P TT, CBC, PT, BNP, CMP, HS TROP, CK #### [address] Automated monocyte %Ordered By: Nancy Wilson on 07-12-2023 Monocytes/100 WBC (Bld) 10.2 % Normal . [facility] Comment on above: Performed By: #### P TT, CBC, PT, BNP, CMP, HS TROP, CK #### [address] Automated neutrophil %Ordere d By: Nancy Wilson on 07-12-2023 Neutrophils/100 WBC (Bld) 65.4 % Normal . [facility] Comment on above: Performed By: #### P TT, CBC, PT, BNP, CMP, HS TROP, CK #### [address] BNP ser/plasOrdered By: Laith Wilson on 07-12-2023 Natriuretic peptide B (Bld) [Mass/Vol] 34.0 pg/mL Normal 5-100 [facility] Comment on above: Result Comment: PERF ORMED BY: [place] [address] PATHOLOGIST SE[employer]ANNER CLIFFORD LOBATO M.D. Performed By: #### P TT, CBC, PT, BNP, CMP, HS TROP, CK #### [address] Bilirubin.total [Mass/volume ] in Serum or PlasmaOrdered By: Nancy Wilson on 07-12-2023 Bilirubin [Mass/Vol] 0.4 mg/dL Normal 0.3-1.0 [facility] Comment on above: Performed By: #### P TT, CBC, PT, BNP, CMP, HS TROP, CK #### [facility] [address] Calcium [Mass/volume] in Ser um or PlasmaOrdered By: Nancy Wilson on 07-12-2023 Calcium [Mass/Vol] 8.5 mg/dL Low 8.6-10.3 [facility] Comment on above: Performed By: #### P TT, CBC, PT, BNP, CMP, HS TROP, CK #### [address] Carbon dioxide, total [Moles /volume] in Serum or PlasmaOrdered By: Nancy Wilson on 07-12-2023 CO2 [Moles/Vol] 24.5 mmol/L Normal 21.0-31.0 [facility] Comment on above: Performed By: #### P TT, CBC, PT, BNP, CMP, HS TROP, CK #### [address] Chloride [Moles/volume] in S ilia or PlasmaOrdered By: Nancy Wilson on 07-12-2023 Chloride [Moles/Vol] 102 mmol/L Normal 98-107 [facility] Comment on above: Performed By: #### P TT, CBC, PT, BNP, CMP, HS TROP, CK #### [address] Complete Blood Count Auto Di ffon 07-12-2023 Mean Corpuscular HGB Conc 32.4 g/dL Low 32.5-35.6 [facility] Comment on above: Performed By: #### P TT, CBC, PT, BNP, CMP, HS TROP, CK #### [address] Monocytes/100 WBC (Bld) 18.12 % Normal 0.00-20.00 [facility] Comment on above: Performed By: #### P TT, CBC, PT, BNP, CMP, HS TROP, CK #### [address] NRBC% 0.1 /100{WBC} Normal 0-0.5 [facility] Comment on above: Performed By: #### P TT, CBC, PT, BNP, CMP, HS TROP, CK #### [address] Comprehensive Metabolic Pane guy 07-12-2023 Albumin [Mass/Vol] 3.9 g/dL Normal 3.5-5.7 [facility] Comment on above: Performed By: #### P TT, CBC, PT, BNP, CMP, HS TROP, CK #### [address] Creatinine Clr Calc Pharmacy 54.64 Normal [facility] Comment on above: Result Comment: PERF ORMED BY: [place] [address] PATHOLOGIST SE[employer]NER CLIFFORD LOBATO M.D. Performed By: #### P TT, CBC, PT, BNP, CMP, HS TROP, CK #### [address] GFR/1.73 sq M.predicted MDRD (S/P/Bld) [Vol rate/Area] 42.789 mL/min/{1.73_m2} Normal [facility] Comment on above: Performed By: #### P TT, CBC, PT, BNP, CMP, HS TROP, CK #### [address] Creatine kinase [Enzymatic a ctivity/volume] in Serum or PlasmaOrdered By: Nancy Wilson on 07-12-2023 CK [Catalytic activity/Vol] 55 U/L Normal 30-223 [facility] Comment on above: Performed By: #### P TT, CBC, PT, BNP, CMP, HS TROP, CK #### [facility] [address] Creatinine [Mass/volume] in Serum or PlasmaOrdered By: Nancy Wilson on 07-12-2023 Creatinine [Mass/Vol] 1.82 mg/dL High 0.70-1.30 [facility] Comment on above: Performed By: #### P TT, CBC, PT, BNP, CMP, HS TROP, CK #### [facility] [address] ECG 12 lead ECGon 07-12-2023 ECG 12 lead ECG [facility] Main [place] [address] [place] [address] Electrocardiograph Report Signed Patient: Solomon Feldman SR MR#: [id number] 2849 : 1965 Acct:[id number] Age/Sex: 57 / M ADM Date: 07/12/23 Loc: ER Room: Type: [facility] ER Attending Dr: Ordering Provider: Nancy [...] Nancy Wilson MD 01/26 0135 Normal [facility] Erythrocyte distribution wid th [Ratio] by Automated countOrdered By: Nancy Wilson on 07-12-2023 Erythrocyte distribution width (RBC) [Ratio] 17.1 % High 12.0-14.8 [facility] Comment on above: Performed By: #### P TT, CBC, PT, BNP, CMP, HS TROP, CK #### [facility] [address] Erythrocytes [#/volume] in B lood by Automated countOrdered By: Nancy Wilson on 07-12-2023 RBC (Bld) [#/Vol] 4.63 10*6/uL Normal 3.90-5.60 [facility] Comment on above: Performed By: #### P TT, CBC, PT, BNP, CMP, HS TROP, CK #### [facility] [address] Glucose [Mass/volume] in Ser um or PlasmaOrdered By: Nancy Wilson on 07-12-2023 Glucose [Mass/Vol] 302 mg/dL High 70-100 [facility] Comment on above: ADA recommended refe rence rangeRandom Glucose Reference Range is dependent on time and content of last meal. Glucose of more than 200 mg/dL in a nonstressed, ambulatory subject supports the diagnosis of Diabetes Mellitus. Result Comment: Gunpowder om Glucose Reference Range is dependent on time and content of last meal. Glucose of more than 200 mg/dL in a nonstressed, ambulatory subject supports the diagnosis of Diabetes Mellitus. ADA recommended reference range Performed By: #### P TT, CBC, PT, BNP, CMP, HS TROP, CK #### [facility] [address] Hematocrit [Volume Fraction] of Blood by Automated countOrdered By: Nancy Wilson on 07-12-2023 Hematocrit (Bld) [Volume fraction] 32.7 % Low 38.8-50.0 [facility] Comment on above: Performed By: #### P TT, CBC, PT, BNP, CMP, HS TROP, CK #### [facility] [address] Hemoglobin [Mass/volume] in BloodOrdered By: Nancy Wilson on 07-12-2023 Hemoglobin (Bld) [Mass/Vol] 10.6 g/dL Low 13.0-17.0 [facility] Comment on above: Performed By: #### P TT, CBC, PT, BNP, CMP, HS TROP, CK #### [facility] [address] INR in Platelet poor plasma by Coagulation assayOrdered By: Nancy Wilson on 07-12-2023 INR Coag (PPP) [Relative time] 1.1 {INR} Normal [facility] Comment on above: INR Therapeutic [...] with mechanical heart valves: 3 - 4.5 Result Comment: INR Therapeutic Range A) Pre- [...] PT, BNP, CMP, HS TROP, CK #### [facility] [address] Leukocytes [#/volume] correc jorge for nucleated erythrocytes in Blood by Automated counOrdered By: Nancy Wilson on 07-12-2023 WBC corrected for nucl RBC Auto (Bld) [#/Vol] 9.5 10*3/uL 4.1-10.5 [facility] Leukocytes [#/volume] in Blo od by Automated countOrdered By: Nancy Wilson on 07-12-2023 WBC (Bld) [#/Vol] 9.5 10*3/uL Normal 4.1-10.5 [facility] Comment on above: Performed By: #### P TT, CBC, PT, BNP, CMP, HS TROP, CK #### [place] [address] [place] Lymphocytes [#/volume] in Bl ood by Automated countOrdered By: Nancy Wilsno on 07-12-2023 Lymphocytes (Bld) [#/Vol] 1.9 10*3/uL Normal 1.00-4.8 [facility] Comment on above: Performed By: #### P TT, CBC, PT, BNP, CMP, HS TROP, CK #### [facility] [address] [place] [address] Lymphocytes/100 leukocytes i n Blood by Automated countOrdered By: Nancy Wilson on 07-12-2023 Lymphocytes/100 WBC (Bld) 20.0 % Normal . [facility] Comment on above: Performed By: #### P TT, CBC, PT, BNP, CMP, HS TROP, CK #### [address] MCH [Entitic mass] by Automa jorge countOrdered By: Nancy Wilson on 07-12-2023 MCH (RBC) [Entitic mass] 22.8 pg Low 27.5-35.2 [facility] Comment on above: Performed By: #### P TT, CBC, PT, BNP, CMP, HS TROP, CK #### [facility] [address] [place] [address] MCHC Auto (RBC) [Mass/Vol]Or dered By: Nancy Wilson on 07-12-2023 MCHC (RBC) [Mass/Vol] 32.4 g/dL 32.5-35.6 [facility] MCV [Entitic volume] by Auto mated countOrdered By: Nancy Wilson on 07-12-2023 MCV (RBC) [Entitic vol] 70.6 fL Low 83.5-101 [facility] Comment on above: Performed By: #### P TT, CBC, PT, BNP, CMP, HS TROP, CK #### [address] Monocyte distribution width [Entitic volume] in Blood by AutomatedOrdered By: Nnacy Wilson on 07-12-2023 Monocyte distribution width Auto (Bld) [Entitic vol] 18.12 % 0.00-20.00 [facility] Neutrophils [#/volume] in Bl ood by Automated countOrdered By: Nancy Wilson on 07-12-2023 Neutrophils (Bld) [#/Vol] 6.2 10*3/uL Normal 1.8-7.7 [facility] Comment on above: Performed By: #### P TT, CBC, PT, BNP, CMP, HS TROP, CK #### [facility] [address] [place] [address] No Panel InformationOrdered By: Nancy Wilson on 07-12-2023 Estimated GFR (CKD-EPI) 42.789 mL/Min [facility] Creatinine Clearance (Chem 54.64 [facility] Nucleated erythrocytes [Pres ence] in Blood by Automated countOrdered By: Nancy Wilson on 07-12-2023 Nucleated RBC Auto Ql (Bld) 0.1 /100{WBC} 0-0.5 [facility] Partial Thromboplastin Timeo n 07-12-2023 aPTT Coag (Bld) [Time] 29.4 s Normal 25.1-36.5 [facility] Comment on above: Result Comment: A he matocrit value greater than 55% may lead to inaccurate results in coagulation testing. Patients having hematocrit values >55% require a special collection tube for coagulation studies. Please contact the laboratory at [phone] for redraw instructions. PERFORMED BY: [place] [address] PATHOLOGIST SEARCH PLANNER CLIFFORD LOBATO M.D. Performed By: #### P TT, CBC, PT, BNP, CMP, HS TROP, CK ####[facility] [id number] [place] [address] Platelet mean volume [Entiti c volume] in Blood by Automated countOrdered By: Nancy Wilson on 07-12-2023 Platelet mean volume (Bld) [Entitic vol] 9.1 fL Normal 6.6-10.1 [facility] Comment on above: Performed By: #### P TT, CBC, PT, BNP, CMP, HS TROP, CK #### [facility] [address] [place] [address] Platelets [#/volume] in Bloo d by Automated countOrdered By: Nancy Wilson on 07-12-2023 Platelets (Bld) [#/Vol] 233 10*3/uL Normal 150-450 [facility] Comment on above: Performed By: #### P TT, CBC, PT, BNP, CMP, HS TROP, CK #### [facility] [address] Potassium [Moles/volume] in Serum or PlasmaOrdered By: Nancy Wilson on 07-12-2023 Potassium [Moles/Vol] 3.9 mmol/L Normal 3.5-5.1 [facility] Comment on above: Performed By: #### P TT, CBC, PT, BNP, CMP, HS TROP, CK #### [facility] [address] Protein [Mass/volume] in Ser um or PlasmaOrdered By: Nancy Wilson on 07-12-2023 Protein [Mass/Vol] 7.0 g/dL Normal 6.4-8.9 [facility] Comment on above: Performed By: #### P TT, CBC, PT, BNP, CMP, HS TROP, CK #### [address] Prothrombin time (PT)Ordered By: Nancy Wilson on 07-12-2023 PT Coag (PPP) [Time] 12.1 s Normal 9.0-12.9 [facility] Comment on above: A hematocrit value g reater than 55% may lead to inaccurate results in coagulation testing. Patients having hematocrit values >55% require a special collection tube for coagulation studies. Please contact the laboratory at [phone] for redraw instructions. Result Comment: A he matocrit value greater than 55% may lead to inaccurate results in coagulation testing. Patients having hematocrit values >55% require a special collection tube for coagulation studies. Please contact the laboratory at [phone] for redraw instructions. Performed By: #### P TT, CBC, PT, BNP, CMP, HS TROP, CK #### [facility] [address] Serum globulin measurement b y calculation (mass/volume)Ordered By: Nancy Wilson on 07-12-2023 Globulin (S) [Mass/Vol] 3.1 g/dL Normal [facility] Comment on above: Performed By: #### P TT, CBC, PT, BNP, CMP, HS TROP, CK #### [address] Serum or plasma albumin/glob ulin mass ratioOrdered By: Nancy Wilson on 07-12-2023 Albumin/Globulin [Mass ratio] 1.3 {ratio} Normal [facility] Comment on above: Performed By: #### P TT, CBC, PT, BNP, CMP, HS TROP, CK #### [address] Serum or plasma anion gap de terminationOrdered By: Nacny Wilson on 07-12-2023 Anion gap [Moles/Vol] 13.4 mmol/L Normal 6.0-15.0 [facility] Comment on above: Performed By: #### P TT, CBC, PT, BNP, CMP, HS TROP, CK #### [address] Sodium [Moles/volume] in Ser um or PlasmaOrdered By: Nancy Wilson on 07-12-2023 Sodium [Moles/Vol] 136 mmol/L Normal 136-145 [facility] Comment on above: Performed By: #### P TT, CBC, PT, BNP, CMP, HS TROP, CK #### [address] Troponin I High Sensitivityo n 07-12-2023 Troponin I High Sensitivity 4.6 pg/mL Normal 0.0-20.0 [facility] Comment on above: Result Comment: PERF ORMED BY: [place] [address] PATHOLOGIST SEARCH PLANNER CLIFFORD LOBATO M.D. Performed By: #### P TT, CBC, PT, BNP, CMP, HS TROP, CK #### [address] Troponin I.cardiac [Mass/vol ume] in Serum or Plasma by Detection limit <= 0.01 ng/Ordered By: Nancy Wilson on 07-12-2023 Troponin I.cardiac DL <= 0.01 ng/mL [Mass/Vol] 4.6 pg/mL 0.0-20.0 [facility] Urea nitrogen [Mass/volume] in Serum or PlasmaOrdered By: Nancy Wilson on 07-12-2023 Urea nitrogen [Mass/Vol] 16 mg/dL Normal 7-25 [facility] Comment on above: Performed By: #### P TT, CBC, PT, BNP, CMP, HS TROP, CK #### [facility] [address] [place] [id number] [facility] XR chest 1V portableon 07-12 XR chest 1V portable [facility] [address] [place] [address] [place] [address] XRay Report Signed Patient: Solomon Feldman SR MR#: [id number] 2849 : 1965 Acct:[id number] Age/Sex: 57 / M ADM Date: 07/12/23 [...] Sudeep Lind M.D.07/12/2023 5:08 PM Dictation Location: [place] [address] Transcribed By: [facility] 07/12/23 1708 Dictated By: Sudeep Lind DO 07/12/23 170 Signed By: 07/12/238 Normal [facility] Patient Educationon 06-02-20 23 Patient [...] Follow these instructions at home: ? Take [id number] and prescription medicines only as told by [...] the medicine (more content not included)... Normal [facility] Retail - Clinical Noteon Retail - Clinical Note [id number] Normal [facility] Urology Office/Clinic Noteon 06-02-2023 Urology Office/Clinic Note Chief Complaint S/p to Cysto HPI Staff Sp to Cysto done @ [facility] on 02/14/23- Has not [...] Contact Information SOLEDAD HERRERA, Yeyo Blum, URL [address] [place] [address]- Additional Instructions: 1 month w/ cath volumes [...] heart failure) (more content not included)... Normal [facility] Comment on above: Result Comment: Elec tronically Signed By: Yeyo ROWE MD\.br\Date and Time Signed: 06/02/23 12:16 EST\.br\Electronically Co-Signed By: Mattie Foster.br\Date and Time Co-Signed: 06/02/23 12:04 EST Patient Educationon 05-03-20 23 Patient Education Normal [facility] Pathology Noteon 05-01-2023 Pathology Note [id number]#1.00TIFF [facility] Lab Reportson 04-14-2023 Lab Reports [id number]#1.00TIFF Normal [facility] Operative Reporton Operative Report [id number]#1.00TIFF Normal [facility] Patient Correspondenceon Patient Correspondence [id number]#1.00TIFF [facility] Lab Reportson 03-31-2023 Lab Reports [id number]#1.00TIFF [facility] RAD - MISCon 03-31-2023 RAD - MISC [id number]#1.00TIFF [facility] Patient Correspondenceon Patient Correspondence [id number]#1.00TIFF [facility] Formson 03-23-2023 Forms [id number]#1.00TIFF [facility] A1C HEMOGLOBINon 03-15-2023 HbA1c (Bld) [Mass fraction] 7.5 % [facility] Other HbA1c (Bld) [Mass fraction]o n 03-15-2023 A1C HEMOGLOBIN [employer] Other Lab Reportson 03-09-2023 Lab Reports [id number]#1.00TIFF [facility] Consultation Noteon 02-27-20 23 Consultation Note [id number]#1.00CD:12 7 [facility] Consent for Procedure/Surger yon 02-15-2023 Consent for Procedure/Surgery [id number]#1.00CD:12 7 [facility] Office Visit (Cardiology)on 02-15-2023 Follow-up [...] in adult Healthy Weight Tips; Status:Complete; Done: [id number] Patient Instructions Please bring all medicines, vitamins, [...] Sia HERRERA, (more content not included)... Normal [facility] Tobacco Screening.on 023 Fall risk assessment c) Not medically indicated [facility] 250 DO Work Phone: Tobacco use status [facility] b) No [facility] 250 DO Work Phone: Tobacco Screening. Yes [facility] 250 DO Work Phone: Consent for Procedure/Surger yon 02-14-2023 Consent for Procedure/Surgery [id number]#1.00CD:1 27 [facility] Consent for Procedure/Surgery [id number]#1.00CD:1 27 [facility] Consent for Treatmenton 02-03 Consent for Treatment [id number]#1.00CD:12 7 [facility] IntraOperative Documentson 0 02-14-2023 IntraOperative Documents [id number]#1.00CD:1 27 [facility] IntraOperative Documents [id number]#1.00CD:1 27 [facility] Main OR Intraoperative Recor don 02-14-2023 Main OR Intraoperative Record IntraOp Document Type FTURO Summary Primary Physician: Yeyo ROWE MD Finalized Date/Time: 02/14/23 10:18:58 Pt. Name: GASTON CHRISTIAN, SOLOMON Navarro./Sex: 1965 Male Med Rec #: [id number] Physician: Yeyo ROWE MD Financial #: [id number] Pt. Type: O Room/Bed: / Admit/Disch: 02/14/23 [...] Sheri Daniel Role Performed Surgeon - Primary Door Glass Installer - Primary Scrub - Primary Time In 02/14/23 09:29:00 02/14/23 09:29:00 02/14/23 09:29:00 Time Out 02/14/23 09:49:00 02/14/23 09:49:00 02/14/23 09:49:00 Procedure CYSTOSCOPY LOCAL(.) CYSTOSCOPY LOCAL(.) CYSTOSCOPY LOCAL(.) Comments Last Modified By: Mauricio STERNChandrika RN, Chandrika Carrillo RN 02/14/23 09:45:25 02/14/23 [...] 09:45 Chandrika Martínez RN 02/14/23 10:18 Normal [facility] Main OR Preoperative Recordo n 02-14-2023 Main OR Preoperative Record Holding Area Document Type FTURO Summary Primary Physician: Yeyo ROWE MD Finalized Date/Time: 02/14/23 09:01:37 Pt. Name: SOLOMON FELDMAN SR/Sex: 1965 Male Med Rec #: [id number] Physician: Yeyo ROWE MD Financial #: [id number] Pt. Type: O Room/Bed: / Admit/Disch: 02/14/23 [...] By: Sheri Bolivar RN 02/14/23 09:01 Normal [facility] Operative Reporton Operative Report Patient: Joe [...] with antibiotic coverage, Follow up arranged. Normal [facility] Comment on above: Result Comment: Michael walker Signed By: SOLEDAD HERRERA, Yyeo Vazquez\Date and Time Signed: 02/14/23 09:52 EDT Patient [...] including vitamins, herbs, eye drops, creams, and waxe-qev-wrgvgia medicines. ? Any problems you or family [...] tells you to take them. ? Taking omib-acx-ovwrggb medicines, vitamins, herbs, and supplements. Surgery safety [...] health care (more content not included)... Normal [facility] Progress Note-Physicianon Progress Note-Physician Patient: SOLOMON [...] mg = 1 tab(s), PRN, SubLingual, q5min [place] 325 mg-5 mg oral tablet 1 tab(s), [...] 278.00 / Possible Fibromyalgia / SNOMED CT [id number]-5137-29W8-9 788945E21E0 / Confirmed Restless leg / ICD-9-CM 333.94 / Confirmed Arthritis / SNOMED CT [id number]-34N1-5J6S-W [id number] / Confirmed Hyperlipidemia / SNOMED CT 95045164 / Confirmed Smoker / SNOMED CT O337VK1L-2783-86H3-3230-C YL2U6212ZL8 / Confirmed Added secondary to documentation in Social History. Asthma / SNOMED CT 369350749 / Confirmed COPD type A / SNOMED CT 663954332 / Confirmed Head ache / SNOMED CT 18431715 / Confirmed Heart attack / SNOMED CT 90165260 / Confirmed Heart disease / SNOMED CT 35884848 / Confirmed Heart murmur / SNOMED CT 291890757 / Confirmed Urinary retention / SNOMED CT 167265251 / Confirmed BPH with obstruction/lower urinary tract symptoms / SNOMED CT 8232973643 / Confirmed Orchitis / SNOMED CT 481072192 / Confirmed Gross hematuria / SNOMED CT 707792474 / Confirmed Tobacco use / SNOMED CT LNMP3734-8642-4O69-U7W0-8 99040KL4AA0 / Confirmed Added secondary to social history documentation. Histories Past Medical History: Active Fibromyalgia ([id number]-0220-18T2- 4908960H64A1) Restless leg (333.94) Arthritis (79YX4268-4B2X-83E4-0G0D- YKB6T144E407) Hyperlipidemia (96778980) Resolved HTN [Hypertension] (401.9): Resolved. NIDDM (250.00): Resolved. GERD [Gastroesophageal reflux disease] (530.81): Resolved. CHF (congestive heart failure) (C5017850-5K2Y-6D8P-9N06- Q721186D0L58): Resolved. HI (myocardial infarction) (035O9WGD-07Y5-4J9B-9W41- 66443R71N8TY): Resolved. Family History: Diabetes mellitus Mother Heart disease Mother Alcoholism Brother Drug addiction Brother Acute myocardial infarction Mother Grandparent Procedure history: Bilateral Eye Surgery. Comments: 07/10/2014 17:25 ALESHA Cormier RN, Kati bilateral cataracts with iol implants Bilateral Carpal Tunnel Surgery. cardiac stents. Appendectomy (191908192). Colonoscopy (000998962). Cataract extraction and insertion of intraocular lens (0524078073). Procedure on back (777180087). Social History Social & Psychosocial Habits Alcohol [...] procedure such (more content not included)... Normal [facility] Comment on above: Result Comment: Elec tronically Signed By: SOLEDAD HERRERA, Yeyo Blum\.br\Date and Time Signed: 02/14/23 09:58 EDT Consent for Treatmenton Consent for Treatment [id number]#1.00CD:12 7 Normal [facility] Ambulatory Visit Summaryon 0 01-30-2023 Ambulatory Visit Summary SOLOMON FELDMAN SR :1965 Visit Date:01/30/2023 Ambulatory Visit Instructions Your Diagnosis Urinary retention Gross hematuria BPH with obstruction/lower urinary tract symptoms Orchitis Your Care Team Attending Physician - Yeyo ROWE MD Primary Care Physician - JENARO LYNCH DO This Is Your Medications List Contact prescribing physician if questions or concerns acetaminophen-hydrocodone ([place] 325 mg-5 mg oral tablet) albuterol (ProAir [...] sched cysto/uros Where: [facility] [address], [place] [id number] [phone] Medications What How Much When Instructions Unchanged acetaminophen-hydrocodone ([place] 325 mg-5 mg oral tablet) 1 Tablets [...] or vivian (more content not included)... Normal [facility] Patient Educationon 01-31-20 Patient Education Urology [...] including vitamins, herbs, eye drops, creams, and zylx-yco-qbbydtm medicines. ? Whether you are or may [...] results be (more content not included)... Normal [facility] Urology Office/Clinic Noteon 01-30-2023 Urology Office/Clinic [...] URL [facility] [address], [place] [id number] [phone] Additional Instructions: sched cysto/uros Patient Education Urodynamic Testing Cystoscopy I, Sharri Mora, personally scribed for Dr. oRwe on 01/30/2023 11:24:26. . Documentation recorded by [...] mg, BID (more content not included)... Normal [facility] Comment on above: Result Comment: Elec tronically Signed By: Saima Sutton.br\Date and Time Signed: 01/30/23 11:38 EDT [facility] CARDIAC STRESS/REST INJE ELISAIONon 01-25-2023 [facility] CARDIAC STRESS/REST INJECTION Patient Name: SOLOMON FELDMAN STUDY: MYOCARDIAL PERFUSION STRESS TEST WITH EXERCISE CONVERTED TO LEXISCAN Performing facility: [facility], [address] [place] [address], [address], [place] [address] [facility] Provider: Dolores Feldman RN, VP STRATEGY PCP: Dr. Jenaro Lynch Supervising provider: Pascale Arnold MD, [facility] INDICATION: Anginal equivalent CAD; HISTORY: Gender: M; Age: 57 y/o ; Height: 182.88 cm; Weight: 97.7158115 kg. High Cholesterol; CAD; Diabetes; HTN; Palpitations; Chest Pain; Quit smoking unknown years ago. COMPARISON: Previous nuclear testing completed at [facility]. ACCESSION NUMBER(S): [id number]; [id number]; [id number] ORDERING CLINICIAN: DOOLRES FELDMAN TECHNIQUE: ONE DAY protocol. Stress injection: [...] signed by: PASCALE ARNOLD MD Normal [facility] No Panel Informationon 01-25 Normal [facility] 250 DO Work [...] Med Order; Status:Hold For - Scheduling; Requested for:[id number]; Radiologist to Determine Optimal Study : Y [...] contact the office if new symptoms arise. 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 He currently [...] Cataract surg (more content not included)... Normal [facility] Tobacco Screening.on 023 Adult depression screening assessment No [facility] [employer] 600 DO Work Phone: Tobacco use status [facility] b) No [facility] [employer] 600 DO Work Phone: Ambulatory Visit Summaryon 0 12-28-2022 Ambulatory Visit Summary SOLOMON FELDMAN SR :1965 Visit Date:12/28/2022 Ambulatory Visit Instructions Your Care Team Attending Physician - Yeyo ROWE MD Primary Care Physician - JENARO LYNCH DO This Is Your Medications List acetaminophen-hydrocodone ([place] 325 mg-5 mg oral tablet) albuterol (ProAir [...] Yeyo Blum Where: [facility] Alanine aminotransferase [En zymatic activity/volume] in Serum or PlasmaOrdered By: Jenaro Lynch on 09-27-2022 ALT [Catalytic activity/Vol] 15 U/L 7-52 [facility] Albumin [Mass/volume] in Ser um or Plasma by Bromocresol green (BCG) dye binding methoOrdered By: Jenaro Lynch on 09-27-2022 Albumin BCG dye [Mass/Vol] 4.1 g/dL 3.5-5.7 [facility] Alkaline phosphatase [Enzyma tic activity/volume] in Serum or PlasmaOrdered By: Jenaro Lynch on 09-27-2022 ALP [Catalytic activity/Vol] 116 U/L 34-104 [facility] Aspartate aminotransferase [ Enzymatic activity/volume] in Serum or PlasmaOrdered By: Jenaro Lynch on 09-27-2022 AST [Catalytic activity/Vol] 15 U/L 13-39 [facility] Basophils Auto (Bld) [#/Vol] Ordered By: Jenaro Lynch on 09-27-2022 Basophils (Bld) [#/Vol] 0.1 10*3/uL 0.0-0.2 [facility] Basophils/100 WBC Auto (Bld) Ordered By: Jenaro Lynch on 09-27-2022 Basophils/100 WBC (Bld) 1.1 % . [facility] Bilirubin.total [Mass/volume ] in Serum or PlasmaOrdered By: Jenaro Lynch on 09-27-2022 Bilirubin [Mass/Vol] 0.4 mg/dL 0.3-1.0 [facility] Calcium [Mass/volume] in Ser um or PlasmaOrdered By: Jenaro Lynch on 09-27-2022 Calcium [Mass/Vol] 8.8 mg/dL 8.6-10.3 [facility] Carbon dioxide, total [Moles /volume] in Serum or PlasmaOrdered By: Jenaro Lynch on 09-27-2022 CO2 [Moles/Vol] 27.2 mmol/L 21.0-31.0 [facility] Chloride [Moles/volume] in S ilia or PlasmaOrdered By: Jenaro Lynch on 09-27-2022 Chloride [Moles/Vol] 99 mmol/L 98-107 [facility] Cholesterol [Mass/volume] in Serum or PlasmaOrdered By: Jenaro Lynch on 09-27-2022 Cholesterol [Mass/Vol] 104 mg/dL 140-200 [facility] Comment on above: Chol less than 200 m g/dl low riskChol 201-239 mg/dl borderline riskChol 240 mg/dl and greater high risk Cholesterol in LDL Calc [Mas s/Vol]Ordered By: Jenaro Lynch on 09-27-2022 Cholesterol in LDL [Mass/Vol] TNP [facility] Comment on above: Test not performed Cholesterol in LDL [Mass/vol ume] in Serum or PlasmaOrdered By: Jenaro Lynch on 09-27-2022 Cholesterol in LDL [Mass/Vol] 38 mg/dL 0-100 [facility] Comment on above: LDL ATP III CLASSIFI CATIONLDL less than 100 mg/dL OptimalLDL 100-129 mg/dL Near or above optimalLDL 130-159 mg/dL Borderline highLDL 160-189 mg/dL HighLDL greater than 189 mg/dL Very high Cholesterol in VLDL Calc [Ma ss/Vol]Ordered By: Jenaro Lynch on 09-27-2022 Cholesterol in VLDL [Mass/Vol] 99 mg/dL [facility] Creatinine [Mass/volume] in Serum or PlasmaOrdered By: Jenaro Lynch on 09-27-2022 Creatinine [Mass/Vol] 1.84 mg/dL 0.70-1.30 [facility] Eosinophils Auto (Bld) [#/Vo l]Ordered By: Jenaro Lynch on 09-27-2022 Eosinophils (Bld) [#/Vol] 0.7 10*3/uL 0.0-0.45 [facility] Eosinophils/100 WBC Auto (Bl d)Ordered By: Jenaro Lynch on 09-27-2022 Eosinophils/100 WBC (Bld) 5.9 % . [facility] Erythrocyte distribution wid th Auto (RBC) [Ratio]Ordered By: Jenaro Lynch on 09-27-2022 Erythrocyte distribution width (RBC) [Ratio] 16.0 % 12.0-14.8 [facility] Globulin Calc (S) [Mass/Vol] Ordered By: Jenaro Lynch on 09-27-2022 Globulin (S) [Mass/Vol] 2.9 g/dL [facility] Glucose [Mass/volume] in Ser um or PlasmaOrdered By: Jenaro Lynch on 09-27-2022 Glucose [Mass/Vol] 225 mg/dL 70-100 [facility] Comment on above: ADA recommended refe rence rangeRandom Glucose Reference Range is dependent on time and content of last meal. Glucose of more than 200 mg/dL in a nonstressed, ambulatory subject supports the diagnosis of Diabetes Mellitus. Hematocrit Auto (Bld) [Volum e fraction]Ordered By: Jenaro Lynch on 09-27-2022 Hematocrit (Bld) [Volume fraction] 41.0 % 38.8-50.0 [facility] Hemoglobin [Mass/volume] in BloodOrdered By: Jenaro Lynch on 09-27-2022 Hemoglobin (Bld) [Mass/Vol] 13.2 g/dL 13.0-17.0 [facility] Leukocytes [#/volume] correc jorge for nucleated erythrocytes in Blood by Automated counOrdered By: Jenaro Lynch on 09-27-2022 WBC corrected for nucl RBC Auto (Bld) [#/Vol] 12.4 10*3/uL 4.1-10.5 [facility] Lymphocytes Auto (Bld) [#/Vo l]Ordered By: Jenaro Lynch on 09-27-2022 Lymphocytes (Bld) [#/Vol] 2.3 10*3/uL 1.00-4.8 [facility] Lymphocytes/100 WBC Auto (Bl d)Ordered By: Jenaro Lynch on 09-27-2022 Lymphocytes/100 WBC (Bld) 18.2 % . [facility] MCH Auto (RBC) [Entitic mass ]Ordered By: Jenaro Lynch on 09-27-2022 MCH (RBC) [Entitic mass] 23.9 pg 27.5-35.2 [facility] MCHC Auto (RBC) [Mass/Vol]Or dered By: Jenaro Lynch on 09-27-2022 MCHC (RBC) [Mass/Vol] 32.2 g/dL 32.5-35.6 [facility] MCV Auto (RBC) [Entitic vol] Ordered By: Jenaro Lynch on 09-27-2022 MCV (RBC) [Entitic vol] 74.3 fL 83.5-101 [facility] Monocytes Auto (Bld) [#/Vol] Ordered By: Jenaro Lynch on 09-27-2022 Monocytes (Bld) [#/Vol] 1.0 10*3/uL 0.0-0.8 [facility] Monocytes/100 WBC Auto (Bld) Ordered By: Jenaro Lynch on 09-27-2022 Monocytes/100 WBC (Bld) 7.9 % . [facility] Neutrophils Auto (Bld) [#/Vo l]Ordered By: Jenaro Lynch on 09-27-2022 Neutrophils (Bld) [#/Vol] 8.3 10*3/uL 1.8-7.7 [facility] Neutrophils/100 WBC Auto (Bl d)Ordered By: Jenaro Lynch on 09-27-2022 Neutrophils/100 WBC (Bld) 66.9 % . [facility] No Panel InformationOrdered By: Jenaro Lynch on 09-27-2022 Estimated GFR (CKD-EPI) 42.232 mL/Min [facility] Creatinine Clearance (Chem N/A [facility] Nucleated erythrocytes [Pres ence] in Blood by Automated countOrdered By: Jenaro Lynch on 09-27-2022 Nucleated RBC Auto Ql (Bld) 0.1 /100{WBC} 0-0.5 [facility] Platelet mean volume Auto (B ld) [Entitic vol]Ordered By: Jenaro Lynch on 09-27-2022 Platelet mean volume (Bld) [Entitic vol] 9.1 fL 6.6-10.1 [facility] Platelets Auto (Bld) [#/Vol] Ordered By: Jenaro Lynch on 09-27-2022 Platelets (Bld) [#/Vol] 209 10*3/uL 150-450 [facility] Potassium [Moles/volume] in Serum or PlasmaOrdered By: Jenaro Lynch on 09-27-2022 Potassium [Moles/Vol] 4.3 mmol/L 3.5-5.1 [facility] Protein [Mass/volume] in Ser um or PlasmaOrdered By: Jenaro Lynch on 09-27-2022 Protein [Mass/Vol] 7.0 g/dL 6.4-8.9 [facility] RBC Auto (Bld) [#/Vol]Ordere d By: Jenaro Lynch on 09-27-2022 RBC (Bld) [#/Vol] 5.52 10*6/uL 3.90-5.60 [facility] Serum or plasma albumin/glob ulin mass ratioOrdered By: Jenaro Lynch on 09-27-2022 Albumin/Globulin [Mass ratio] 1.4 {ratio} [facility] Serum or plasma anion gap de terminationOrdered By: Jenaro Lynch on 09-27-2022 Anion gap [Moles/Vol] 14.1 mmol/L 6.0-15.0 [facility] Serum or plasma high density lipoprotein (HDL) cholesterol measurementOrdered By: Jenaro Lynch on 09-27-2022 Cholesterol in HDL [Mass/Vol] 21 mg/dL 29- [facility] Comment on above: HDL CHOL ATP-III CLA SSIFICATION Cardiovascular RiskHDL > or equal to 60 mg/dL LOWHDL < 40 mg/dL HIGH Serum or plasma total choles terol/high density lipoprotein (HDL) cholesterol mass ratOrdered By: Jenaro Lynch on 09-27-2022 Cholesterol.total/Chol esterol in HDL [Mass ratio] 5.0 {ratio} <5.0 [facility] Sodium [Moles/volume] in Ser um or PlasmaOrdered By: Jenaro Lynch on 09-27-2022 Sodium [Moles/Vol] 136 mmol/L 136-145 [facility] Thyrotropin [Units/volume] i n Serum or PlasmaOrdered By: Jenaro Lynch on 09-27-2022 TSH Qn 3.62 m[IU]/L 0.45-5.33 [facility] Triglyceride [Mass/volume] i n Serum or PlasmaOrdered By: Jenaro Lynch on 09-27-2022 Triglyceride [Mass/Vol] 497 mg/dL 0-149 [facility] Comment on above: If the [...] on 09-27-2022 Urate [Mass/Vol] 6.2 mg/dL 2.4-7.6 [facility] Urea nitrogen [Mass/volume] in Serum or PlasmaOrdered By: Jenaro Lynch on 09-27-2022 Urea nitrogen [Mass/Vol] 15 mg/dL 12-27 [facility] WBC Auto (Bld) [#/Vol]Ordere d By: Jenaro Lynch on 09-27-2022 WBC (Bld) [#/Vol] 12.4 10*3/uL 4.1-10.5 [facility] A1C HEMOGLOBINon 02-15-2022 HbA1c (Bld) [Mass fraction] % fsboWOW [facility] [employer] Other HbA1c (Bld) [Mass fraction]o n 02-15-2022 A1C HEMOGLOBIN Oral [employer] Other Tobacco Screening.on 022 Adult depression screening assessment No [facility] 250 DO Work Phone: Tobacco use status [facility] b) No [facility] 250 DO Work Phone: A1C HEMOGLOBINon 07-27-2021 HbA1c (Bld) [Mass fraction] 11.8 % fsboWOW [facility] [employer] Other HbA1c (Bld) [Mass fraction]o n 07-27-2021 A1C HEMOGLOBIN [employer] Other Vital Signs Date Time Vital Sign Value Performing Clinician Facility 10-24-2023 10:56-0400 Body height 182.9 cm Raulito Inman MD Work Phone: [facility] 10-24-2023 10:56-0400 Diastolic blood pressure 86 mm[Hg] Raulito Inman MD Work Phone: [facility] 10-24-2023 10:56-0400 Heart rate 104 /min Raulito Inman MD Work Phone: [facility] 10-24-2023 10:56-0400 Systolic blood pressure 134 mm[Hg] Raulito Inman MD Work Phone: [facility] 10-23-2023 09:37-0400 Blood Pressure Location Padmini Montes [facility] 10-23-2023 09:37-0400 Diastolic blood pressure 82 mm[Hg] Padmini Montes [facility] 10-23-2023 09:37-0400 Heart rate 107 /min Padmini Montes [facility] 10-23-2023 09:37-0400 SaO2% (BldA) [Mass fraction] 98 % Padmini Montes [facility] 10-23-2023 09:37-0400 Systolic blood pressure 130 mm[Hg] Padmini Montes [facility] 07-31-2023 12:00-0500 Diastolic blood pressure 63 mm[Hg] DO Jenaro Kuns Work Phone: [facility] 07-31-2023 12:00-0500 Heart rate 75 /min DO Jenaro Kuns Work Phone: [facility] 07-31-2023 12:00-0500 Systolic blood pressure 108 mm[Hg] DO Jenaro Kuns Work Phone: [facility] 07-31-2023 08:33-0500 Respiratory rate 18 /min DO Jenaro Kuns Work Phone: [facility] 07-12-2023 18:03-0500 Diastolic blood pressure 73 mm[Hg] DO Jenaro Kuns Work Phone: [facility] 07-12-2023 18:03-0500 Heart rate 76 /min DO Jenaro Kuns Work Phone: [facility] 07-12-2023 18:03-0500 Respiratory rate 20 /min DO Jenaro Kuns Work Phone: [facility] 07-12-2023 18:03-0500 SaO2% (BldA) [Mass fraction] 98 % DO Jenaro Kuns Work Phone: [facility] 07-12-2023 18:03-0500 Systolic blood pressure 125 mm[Hg] DO Jenaro Kuns Work Phone: [facility] 07-12-2023 16:15-0500 Body height 182.88 cm DO Jenaro Kuns Work Phone: [facility] 07-12-2023 16:15-0500 Body temperature 98.9 [degF] DO Jenaro Lynch Work Phone: [facility] 07-12-2023 16:15-0500 Body weight 99.25 kg DO Jenaro Lynch Work Phone: [facility] 06-02-2023 10:56-0500 Blood Pressure Location Yeyo ROWE [facility] 06-02-2023 10:56-0500 Body temperature 96.98 [degF] Yeyo ROWE [facility] 06-02-2023 10:56-0500 Diastolic blood pressure 84 mm[Hg] Yeyo ROWE [facility] 06-02-2023 10:56-0500 Heart rate 68 /min Yeyo ROWE [facility] 06-02-2023 10:56-0500 Systolic blood pressure 124 mm[Hg] Yeyo ROWE [facility] 04-06-2023 13:15-0400 Body height 180.34 cm Jenaro Lynch Other [facility] Other 04-06-2023 13:15-0400 Body mass index (BMI) [Ratio] 29.43 kg/m2 Jenaro Lynch Other [facility] Other 04-06-2023 13:15-0400 Body weight 95.71 kg Jenaro Lynch Other [facility] Other 04-06-2023 13:15-0400 Diastolic blood pressure 70 mm[Hg] Jenaro Lynch Other [facility] Other 04-06-2023 13:15-0400 Respiratory rate 18 /min Jenarogorge Fraustojoe Other [facility] Other 04-06-2023 13:15-0400 SaO2% (BldA) [Mass fraction] 97 % Jenaro Jettjoe Other [facility] Other 04-06-2023 13:15-0400 Systolic blood pressure 100 mm[Hg] Jenaro Lynch Other [facility] Other 03-15-2023 08:30-0400 Body height 180.34 cm Jenaro Lynch Other [facility] Other 03-15-2023 08:30-0400 Body mass index (BMI) [Ratio] 29.01 kg/m2 Jenaro Lynch Other [facility] Other 03-15-2023 08:30-0400 Body weight 94.35 kg Jenaro Lynch Other [facility] Other 03-15-2023 08:30-0400 Diastolic blood pressure 62 mm[Hg] Jenaro Lynch Other [facility] Other 03-15-2023 08:30-0400 Respiratory rate 16 /min Jenaro Lynch Other [facility] Other 03-15-2023 08:30-0400 SaO2% (BldA) [Mass fraction] 97 % Jenaro Lynch Other [employer] Other 03-15-2023 08:30-0400 Systolic blood pressure 88 mm[Hg] Jenaro Lynch Other [employer] Other 02-15-2023 10:04-0400 Body height 182.88 cm Jenaro Lynch Work Phone: [facility] 250 DO Work Phone: 02-15-2023 10:04-0400 Body mass index (BMI) [Ratio] 28.62 kg/m2 Jenaro Lynch Work Phone: [facility] 250 DO Work Phone: 02-15-2023 10:04-0400 Body surface area Derived from formula 2.18 m2 Jenaro Lynch Work Phone: [facility] 250 DO Work Phone: 02-15-2023 10:04-0400 Body weight 95.71 kg Jenaro Lynch Work Phone: [facility] 250 DO Work Phone: 02-15-2023 10:04-0400 Diastolic blood pressure 70 mm[Hg] Jenaro Lynch Work Phone: [facility] 250 DO Work Phone: 02-15-2023 10:04-0400 Heart rate 76 /min Jenaro Lynch Work Phone: [facility] 250 DO Work Phone: 02-15-2023 10:04-0400 Systolic blood pressure 102 mm[Hg] Jenaro Lynch Work Phone: [facility] 250 DO Work Phone: 01-30-2023 10:23-0400 Blood Pressure Location Yeyo ROWE [facility] 01-30-2023 10:23-0400 Diastolic blood pressure 74 mm[Hg] Yeyo ROWE [facility] 01-30-2023 10:23-0400 Heart rate 68 /min Yeyo ROWE [facility] 01-30-2023 10:23-0400 Respiratory rate 16 /min Yeyo ROWE [facility] 01-30-2023 10:23-0400 Systolic blood pressure 130 mm[Hg] Yeyo ROWE [facility] 01-11-2023 15:08-0400 Body height 180.34 cm Jenaro Lynch Work Phone: [facility] [employer] 600 DO Work Phone: 01-11-2023 15:08-0400 Body mass index (BMI) [Ratio] 30.13 kg/m2 Jenaro Lynch Work Phone: [facility] [employer] 600 DO Work Phone: 01-11-2023 15:08-0400 Body surface area Derived from formula 2.18 m2 Jenaro Lynch Work Phone: [facility] [employer] 600 DO Work Phone: 01-11-2023 15:08-0400 Body weight 97.98 kg Jenaro Lynch Work Phone: [facility] [employer] 600 DO Work Phone: 01-11-2023 15:08-0400 Diastolic blood pressure 86 mm[Hg] Jenaro Lynch Work Phone: [facility] 600 DO Work Phone: 01-11-2023 15:08-0400 Heart rate 74 /min Jenaro Lynch Work Phone: [facility] [employer] 600 DO Work Phone: 01-11-2023 15:08-0400 Systolic blood pressure 122 mm[Hg] Jenaro Lynch Work Phone: [facility] 600 DO Work Phone: 12-01-2022 12:45-0400 Body height 180.34 cm Jenaro Lynch Other [facility] [employer] Other 12-01-2022 12:45-0400 Body mass index (BMI) [Ratio] 29.73 kg/m2 Jenaro Lynch Other [facility] [employer] Other 12-01-2022 12:45-0400 Body weight 96.71 kg Jenaro Lynch Other [facility] [employer] Other 12-01-2022 12:45-0400 Diastolic blood pressure 70 mm[Hg] Jenaro Lynch Other [facility] [employer] Other 12-01-2022 12:45-0400 Respiratory rate 18 /min Jenaro Lynch Other [facility] [employer] Other 12-01-2022 12:45-0400 SaO2% (BldA) [Mass fraction] 94 % Jenaro Lynch Other [facility] [employer] Other 12-01-2022 12:45-0400 Systolic blood pressure 122 mm[Hg] Jenaro Lynch Other [employer] Other 11-23-2022 11:38-0400 Blood Pressure Location Yeyo ROWE [facility] 11-23-2022 11:38-0400 Diastolic blood pressure 85 mm[Hg] Yeyo ROWE [facility] 11-23-2022 11:38-0400 Heart rate 76 /min Yeyo ROWE [facility] 11-23-2022 11:38-0400 Systolic blood pressure 130 mm[Hg] Yeyo ROWE [facility] 07-04-2022 10:30-0500 Body height 180.34 cm Jenaro Lynch Other [facility] Other 07-04-2022 10:30-0500 Body mass index (BMI) [Ratio] 29.43 kg/m2 Jenaro Lynch Other [facility] Other 07-04-2022 10:30-0500 Body weight 95.71 kg Jenaro Lynch Other [facility] [employer] Other 07-04-2022 10:30-0500 Diastolic blood pressure 86 mm[Hg] Jenaro Lynch Other [employer] Other 07-04-2022 10:30-0500 Respiratory rate 16 /min Jenaro Lynch Other [facility] [employer] Other 07-04-2022 10:30-0500 Systolic blood pressure 146 mm[Hg] Jenaro Lynch Other [employer] Other 02-15-2022 13:45-0400 Body height 180.34 cm Jenaro Lynch Other [employer] Other 02-15-2022 13:45-0400 Body mass index (BMI) [Ratio] 30.12 kg/m2 Jenaro Lynch Other [employer] Other 02-15-2022 13:45-0400 Body weight 97.98 kg Jenaro Jettjoe Other [facility] [employer] Other 02-15-2022 13:45-0400 Diastolic blood pressure 62 mm[Hg] Jenaro Lynch Other [facility] [employer] Other 02-15-2022 13:45-0400 Respiratory rate 16 /min Jenaro Lynch Other [facility] [employer] Other 02-15-2022 13:45-0400 SaO2% (BldA) [Mass fraction] 96 % Jenaro Lynch Other [facility] [employer] Other 02-15-2022 13:45-0400 Systolic blood pressure 100 mm[Hg] Jenaro Lynch Other [facility] [employer] Other 10-26-2021 10:01-0400 Body height 180.34 cm Jenaro Guerra Syed Work Phone: [facility] 250 DO Work Phone: 10-26-2021 10:01-0400 Body mass index (BMI) [Ratio] 29.99 kg/m2 Jenaro Guerra Syed Work Phone: [facility] 250 DO Work Phone: 10-26-2021 10:01-0400 Body surface area Derived from formula 2.17 m2 Jenaro Fraustojoe Work Phone: [facility] 250 DO Work Phone: 10-26-2021 10:01-0400 Body weight 97.52 kg Jenaro Fraustojoe Work Phone: [facility] 250 DO Work Phone: 10-26-2021 10:01-0400 Diastolic blood pressure 70 mm[Hg] Jenaro Lynch Work Phone: [facility] [employer] 250 DO Work Phone: 10-26-2021 10:01-0400 Heart rate 68 /min Jenaro Lynch Work Phone: [facility] [employer] 250 DO Work Phone: 10-26-2021 10:01-0400 Systolic blood pressure 104 mm[Hg] Jenaro Lynch Work Phone: [facility] [employer] 250 DO Work Phone: 10-19-2021 12:20-0400 Body height 180.34 cm Amina [employer] Other [employer] Other 10-19-2021 12:20-0400 Body mass index (BMI) [Ratio] 30.65 kg/m2 Amina [employer] Other [facility] Other 10-19-2021 12:20-0400 Body temperature 96.8 [degF] Amina [employer] Other [employer] Other 10-19-2021 12:20-0400 Body weight 99.7 kg Amina [employer] Other [facility] [employer] Other 10-19-2021 12:20-0400 Diastolic blood pressure 71 mm[Hg] Amina [employer] Other [facility] Other 10-19-2021 12:20-0400 Respiratory rate 18 /min Amina [employer] Other [facility] Other 10-19-2021 12:20-0400 SaO2% (BldA) [Mass fraction] 98 % Azjuan Bakhoujoe Other [employer] Other 10-19-2021 12:20-0400 Systolic blood pressure 111 mm[Hg] Amina Kinseyjoe Other [employer] Other 07-27-2021 14:00-0500 Body height 180.34 cm Jenaro Lynch Other [employer] Other 07-27-2021 14:00-0500 Body mass index (BMI) [Ratio] 30.4 kg/m2 Jenaro Lynch Other [facility] [employer] Other 07-27-2021 14:00-0500 Body weight 98.88 kg Jenaro Lynch Other [facility] [employer] Other 07-27-2021 14:00-0500 Diastolic blood pressure 76 mm[Hg] Jenaro Lynch Other [employer] Other 07-27-2021 14:00-0500 Respiratory rate 18 /min Jenaro Lynch Other [facility] Other 07-27-2021 14:00-0500 SaO2% (BldA) [Mass fraction] 98 % Jenaro Lynch Other [employer] Other 07-27-2021 14:00-0500 Systolic blood pressure 112 mm[Hg] Jenaro Lynch Other [employer] Other Encounters Encounter Date Encounter Type Care Provider Facility Start: 02-12-2024 ambulatory Yeyo Ley ty:[facility] Start: 12-15-2023 End: 12-15-2023 ambulatory DO Jenaro Lynch Work Phone: [facility] Work Phone: Start: 12-15-2023 End: 12-15-2023 Departed Referred DO Jenaro Fraustos Work Phone: [facility] Start: 12-10-2023 Non-patient / Non-visit DO Phillip an Kuns Work Phone: [facility] [place] Work Phone: Start: 12-09-2023 Non-patient / Non-visit DO Phillip an Kuns Work Phone: [facility] Work Phone: Start: 11-30-2023 End: 11-30-2023 ambulatory [facility] Start: 11-26-2023 Non-patient / Non-visit DO Phillip an Kuns Work Phone: [facility] Work Phone: Start: 11-23-2023 End: 11-23-2023 ambulatory [facility] Start: 11-15-2023 End: 11-15-2023 ambulatory MAAME Hooker [facility] Start: 11-15-2023 Non-patient / Non-visit DO Phillip an Kuns Work Phone: [facility] Work Phone: Start: 11-14-2023 End: 11-14-2023 Evaluation and management of inpatient [facility] Start: 11-07-2023 End: 11-14-2023 Evaluation and management of inpatient [facility] Start: 11-07-2023 End: 11-14-2023 Evaluation and management of inpatient [facility] Start: 10-24-2023 End: 10-24-2023 ambulatory [facility] Start: 10-24-2023 End: 10-24-2023 Encounter for preprocedural cardiovascular examination RAULITO INMAN [facility] Start: 10-24-2023 End: 10-24-2023 Office outpatient visit 25 minutes Raulito Inman MD Work Phone: [facility] Comment on above: History of PTCA; Hyperlipidemia, unspecified hyperlipidemia type; Encounter for pre-operative cardiovascular clearance; Former smoker Start: 10-24-2023 End: 10-24-2023 Patient encounter status Raulito Inman MD Work Phone: [facility] Work Phone: Start: 10-23-2023 End: 10-23-2023 ambulatory XXXX NONE Facility:[facility] Start: 10-23-2023 End: 10-23-2023 Patient encounter procedure Padmini Montes [facility] Start: 10-19-2023 End: 10-20-2023 ambulatory Padmini Montes Facility:[facility] Start: 10-19-2023 ambulatory Padmini Montes Facili ty:[facility] Start: 10-19-2023 End: 10-19-2023 Patient encounter procedure Padmini Montes [facility] Start: 10-18-2023 End: 10-18-2023 ambulatory PADMINI MONTES [facility] Start: 10-06-2023 Non-patient / Non-visit DO Phillip Lynch Work Phone: [facility] Work Phone: Start: 10-05-2023 End: 10-05-2023 ambulatory DO Jenaro Lynch Work Phone: [facility] Work Phone: Start: 10-05-2023 End: 10-05-2023 Departed Referred DO Jenaro Lynch Work Phone: [facility] Start: 10-05-2023 Non-patient / Non-visit DO Phillip an Kuns Work Phone: [facility] Work Phone: Start: 10-04-2023 Non-patient / Non-visit DO Phillip an Kuns Work Phone: [facility] Work Phone: Start: 10-03-2023 Non-patient / Non-visit DO Phillip an Kuns Work Phone: [facility] Work Phone: Start: 10-02-2023 End: 10-02-2023 ambulatory DO Jenaro Kuns Work Phone: [facility] Work Phone: Start: 10-02-2023 End: 10-02-2023 Departed Referred DO Jenaro Fraustos Work Phone: [facility] [place] [facility] Start: 10-02-2023 Non-patient / Non-visit DO Phillip an Kuns Work Phone: [facility] Work Phone: Start: 10-01-2023 Non-patient / Non-visit DO Phillip an Kuns Work Phone: [facility] Work Phone: Start: 09-30-2023 Non-patient / Non-visit DO Phillip an Kuns Work Phone: [facility] Work Phone: Start: 09-27-2023 Non-patient / Non-visit DO Phillip an Kuns Work Phone: [facility] Work Phone: Start: 09-21-2023 End: 09-21-2023 ambulatory DO Jenaro Kuns Work Phone: [facility] Work Phone: Start: 09-21-2023 End: 09-21-2023 Departed Referred DO Jenaro Kuns Work Phone: [facility] Start: 09-21-2023 Non-patient / Non-visit DO Phillip an Kuns Work Phone: [facility] [place] Work Phone: Start: 09-18-2023 Non-patient / Non-visit DO Phillip an Kuns Work Phone: [facility] [place] Work Phone: Start: 09-08-2023 End: 09-08-2023 ambulatory Yeyo ROWE Facility:[facility] Start: 09-08-2023 End: 09-08-2023 Patient encounter procedure Yeyo ROWE [facility] Start: 08-10-2023 Non-patient / Non-visit DO Phillip an Kuns Work Phone: [facility] Work Phone: Start: 08-08-2023 Non-patient / Non-visit DO Phillip an Kuns Work Phone: [facility] Work Phone: Start: 08-07-2023 Non-patient / Non-visit DO Phillip an Kuns Work Phone: [facility] Work Phone: Start: 08-06-2023 Non-patient / Non-visit DO Phillip an Kuns Work Phone: [facility] Work Phone: Start: 08-05-2023 Non-patient / Non-visit DO Phillip an Kuns Work Phone: [facility] Work Phone: Start: 08-04-2023 Non-patient / Non-visit DO Phillip Lynch Work Phone: [facility] Work Phone: Start: 08-03-2023 Non-patient / Non-visit DO Phillip Lynch Work Phone: [facility] Work Phone: Start: 07-31-2023 Registered Recurring DO Jenaro Lynch Work Phone: [facility] Work Phone: Start: 07-31-2023 ambulatory Jenaro Lynch Facility:[facility] Start: 07-26-2023 Non-patient / Non-visit DO Phillip gorge Syed Work Phone: [facility] Work Phone: Start: 07-12-2023 End: 07-12-2023 Emergency department patient visit DO Jenaro Lynch Work Phone: [facility] Work Phone: Start: 07-07-2023 End: 07-07-2023 ambulatory Jenaro Lynch Other [facility] [employer] Other Start: 07-07-2023 Telephone encounter Jenaro Lynch [facility] Start: 07-03-2023 End: 07-03-2023 ambulatory Yeyo ROWE Facility:[facility] Start: 06-26-2023 End: 06-26-2023 ambulatory Jenaro Lynch Other [facility] [employer] Other Start: 06-26-2023 Telephone encounter [facility] Start: 06-02-2023 End: 06-02-2023 ambulatory Yeyo ROWE Facility: [facility] Start: 06-02-2023 End: 06-02-2023 Patient encounter procedure Yeyo Blum ROWE [facility] [place] Start: 05-16-2023 End: 05-16-2023 ambulatory Jenaro Lynch Other [facility] Other Start: 05-16-2023 Telephone encounter Jenaro Lynch [facility] Start: 05-03-2023 End: 05-03-2023 ambulatory Yeyo ROWE Facility: [place] Start: 05-03-2023 End: 05-03-2023 Patient encounter procedure Yeyo R ROWE [facility] Start: 04-28-2023 End: 04-28-2023 ambulatory Jenaro Lynch Other [employer] Other Start: 04-28-2023 Telephone encounter Jenaro Lynch [facility] Start: 04-18-2023 End: 04-18-2023 ambulatory Yeyo Viktoria SOLEDAD Facility:[facility] [place] Start: 04-18-2023 End: 04-18-2023 Patient encounter procedure Yeyo R ROWE [facility] Start: 04-17-2023 ambulatory Yeyo ROWE Facili ty:[facility] Start: 04-13-2023 End: 04-13-2023 ambulatory Yeyo ROWE Facility:[id number] Start: 04-11-2023 End: 04-11-2023 ambulatory Jenaro Lynch Other [employer] Other Start: 04-11-2023 Telephone encounter Jenaro Lynch [facility] Start: 04-06-2023 End: 04-06-2023 ambulatory Jenaro Lynch Other [employer] Other Start: 04-06-2023 Encounter for other preprocedural examination Jenaro Syed [facility] Start: 04-06-2023 Office outpatient vi sit 25 minutes [facility]ed [facility] Start: 03-28-2023 End: 03-28-2023 ambulatory Jenaro Lynch Other [facility] [employer] Other Start: 03-28-2023 Telephone encounter Jenaro Lynch [facility] Start: 03-20-2023 ambulatory Yeyo ROWE Facili ty:[facility] Start: 03-15-2023 End: 03-15-2023 ambulatory Yeyo ROWE [facility] [employer] Other Start: 03-15-2023 Office outpatient vi sit 25 minutes Jenaro Lynch [facility] Start: 03-10-2023 End: 03-10-2023 ambulatory Jenaro Fraustojoe Other [employer] Other Start: 03-10-2023 Telephone encounter Jenaro Lynch [facility] Start: 02-15-2023 Office outpatient vi sit 15 minutes Jenaro Lynch Work Phone: [facility] 250 DO Work Phone: Start: 02-15-2023 ambulatory Dolores Feldman Facility:[id number] Start: 02-14-2023 End: 02-14-2023 ambulatory Yeyo ROWE Facility:[facility] Start: 02-14-2023 End: 02-14-2023 Patient encounter procedure Yeyo ROWE [facility] Start: 02-08-2023 End: 02-08-2023 ambulatory Yeyo ROWE Facility:[facility] Start: 02-08-2023 End: 02-08-2023 Patient encounter procedure Yeyo ROWE [facility] Start: 01-30-2023 End: 01-30-2023 ambulatory Yeyo ROWE Facility:[facility] Start: 01-30-2023 End: 01-30-2023 Patient encounter procedure Yeyo ROWE [facility] Start: 01-25-[address] Jenaro Lynch Facility:[id number] Start: 01-17-2023 End: 01-17-2023 ambulatory Jenaro Lynch Other [employer] Other Start: 01-17-2023 Telephone encounter Jenaro Lynch [facility] Start: 01-11-2023 Office outpatient vi sit 25 minutes Jenaro Lynch Work Phone: [facility] 600 DO Work Phone: Start: 01-11-2023 ambulatory Dolores Feldman Facility:[id number] Start: 12-28-2022 End: 12-28-2022 ambulatory Yeyo ROWE Facility:[facility] [place] Start: 12-28-2022 End: 12-28-2022 Patient encounter procedure Yeyo ROWE [facility] Start: 12-21-2022 ambulatory Yeyo ROWE Facili ty:[facility] [place] Start: 12-01-2022 End: 12-01-2022 ambulatory Jenaro Lynch Other [employer] Other Start: 12-01-2022 Office outpatient vi sit 25 minutes Jenaro Lynch [facility] Start: 11-30-2022 ambulatory Yeyo ROWE Facility :[facility] [place] Start: 11-23-2022 End: 11-23-2022 Patient encounter procedure Yeyo ROWE [facility] Start: 10-07-2022 End: 10-07-2022 ambulatory Jenaro Lynch Other [employer] Other Start: 10-07-2022 Telephone encounter Jenaro Lynch [facility] Start: 09-27-2022 End: 09-27-2022 ambulatory DO Jenaro Fraustojoe Work Phone: [facility] Work Phone: Start: 09-27-2022 End: 09-27-2022 Patient encounter procedure DO Jenaro Lynch Work Phone: [facility] [place] Work Phone: Start: 09-21-2022 End: 09-21-2022 ambulatory Jenaro Lynch Other [employer] Other Start: 09-21-2022 Telephone encounter Jenaro Lynch [facility] Start: 09-14-2022 End: 09-14-2022 ambulatory Jenaro Lynch Other [employer] Other Start: 09-14-2022 Telephone encounter Jenaro Lynch [facility] Start: 09-02-2022 End: 09-02-2022 Patient encounter procedure DO Jenarogorge Fraustojoe Work Phone: [facility] [place] Work Phone: Start: 08-25-2022 End: 08-25-2022 ambulatory Tona Mapus Other [employer] Other Start: 08-25-2022 Telephone encounter Doris Marianous [employer] Start: 08-22-2022 End: 08-22-2022 ambulatory Jenaro Lynch Other [employer] Other Start: 08-22-2022 Telephone encounter Jenaro Lynch [facility] Start: 08-05-2022 End: 08-05-2022 ambulatory Jenaro Lynch Other [employer] Other Start: 08-05-2022 Telephone encounter Jenaro Lynch [facility] Start: 08-04-2022 End: 08-04-2022 ambulatory Jenaro Lynch Other [employer] Other Start: 08-04-2022 Telephone encounter Jenaro Lynch [facility] Start: 07-28-2022 End: 07-28-2022 ambulatory Jenaro Lynch Other [employer] Other Start: 07-28-2022 Telephone encounter Jenaro Lynch [employer] Start: 07-25-2022 End: 07-25-2022 ambulatory Jenarogorge Lynch Other [employer] Other Start: 07-25-2022 Nursing evaluation o f patient and report Jenaro Lynch [facility] Start: 07-19-2022 End: 07-19-2022 ambulatory Jenaro Lynch Other [employer] Other Start: 07-19-2022 Telephone encounter Jenaro Lynch [facility] Start: 07-15-2022 End: 07-15-2022 ambulatory Jenarogorge Lynch Other [employer] Other Start: 07-15-2022 Telephone encounter Jenaro Lynch [facility] Start: 07-13-2022 End: 07-13-2022 ambulatory Jenarogorge Lynch Other [employer] Other Start: 07-13-2022 Nursing evaluation o f patient and report Jenaro Lynch [facility] [place] Start: 02-07-[address] [facility] Start: 07-05-2022 End: 07-05-2022 ambulatory Jenaro Lynch Other [employer] Other Start: 07-05-2022 Telephone encounter Jenaro Lynch [facility] Start: 07-05-2022 Rx Renewal Jenaro yLnch Work Phone: [facility] 250 DO Work Phone: Start: 07-04-2022 End: 07-04-2022 ambulatory Jenaro Lynch Other [employer] Other Start: 07-04-2022 Office outpatient vi sit 25 minutes Jenaro Lynch [facility] [place] Start: 06-30-2022 End: 06-30-2022 ambulatory Jenaro Lynch Other [employer] Other Start: 06-30-2022 Telephone encounter Jenaro Lynch [facility] Start: 05-25-2022 End: 05-25-2022 ambulatory Jenaro Lynch Other [employer] Other Start: 05-25-2022 Telephone encounter Jenaro Lynch [facility] Start: 04-25-2022 End: 04-25-2022 ambulatory Jenaro Lynch Other [employer] Other Start: 04-25-2022 Telephone encounter Jenaro Lynch [facility] Start: 04-19-2022 End: 04-19-2022 ambulatory Jenaro Lynch Other [employer] Other Start: 04-19-2022 Telephone encounter Jenaro Lynch [facility] Start: 03-22-2022 End: 03-22-2022 ambulatory Jenaro Lynch Other [employer] Other Start: 03-22-2022 Telephone encounter Jenarogorge Lynch [facility] Start: 03-01-2022 End: 03-01-2022 ambulatory Jenaro Jettjoe Other [employer] Other Start: 03-01-2022 Telephone encounter Jenarogorge Lynch [facility] Start: 02-18-2022 End: 02-18-2022 ambulatory Jenaro Jettjoe Other [employer] Other Start: 02-18-2022 Telephone encounter Jenarogorge Lynch [facility] Start: 02-15-2022 End: 02-15-2022 ambulatory Verona Whaley Other [employer] [employer] Other Start: 02-15-2022 Office outpatient vi sit 25 minutes Jenaro Lynch [facility] Start: 02-15-2022 Telephone encounter Verona Whaley [facility] Start: 01-21-2022 End: 01-21-2022 ambulatory Jenaro Fraustojoe Other [employer] Other Start: 01-21-2022 Telephone encounter Jenarogorge Lynch [facility] Start: 01-19-2022 End: 01-19-2022 ambulatory Jenaro Fraustojoe Other [facility] [employer] Other Start: 01-19-2022 Telephone encounter Jenarogorge Lynch [facility] Start: 01-13-2022 End: 01-13-2022 ambulatory Jenaro Fraustojoe Other [employer] [employer] Other Start: 01-13-2022 Telephone encounter Jenaro Syed [facility] Start: 12-23-2021 End: 12-23-2021 ambulatory Jenaro Lynch Other [facility] Other Start: 12-23-2021 Telephone encounter Jenaro Fraustojoe [facility] Family [facility] [place] Start: 11-24-2021 End: 11-24-2021 ambulatory Jenarogorge Lynch Other [facility] Start: 11-24-2021 Telephone encounter Jenarogorge Lynch [facility] [place] Start: 11-03-2021 Rx Renewal Jenaro Lynch Work Phone: [facility] [place] 250 DO Work Phone: Start: 10-26-2021 Office outpatient vi sit 25 minutes Jenaro Lynch Work Phone: [facility] [place] 250 DO Work Phone: Start: 10-25-2021 End: 10-25-2021 ambulatory Jenaro Syed [facility] Other Start: 10-25-2021 Telephone encounter Jenaro Lynch [facility] [place] Start: 10-19-2021 End: 10-19-2021 ambulatory Azjuan Kinseys Other [facility] Other Start: 10-19-2021 Office outpatient vi sit 25 minutes Aziz Bakhous [facility] Start: 10-18-2021 End: 10-18-2021 ambulatory Aziz Bakhous [facility] Other Start: 10-18-2021 Telephone encounter Azjuan Kinseys [facility] Start: 10-12-2021 End: 10-13-2021 ambulatory DUARTE HENRY . Facility: Start: 10-08-2021 End: 10-08-2021 ambulatory Jenarogorge Lynch [facility] Other Start: 10-08-2021 Telephone encounter Jenarogorge Fraustojoe [facility] [place] Start: 09-22-2021 End: 09-22-2021 ambulatory Jenaro Lynch [facility] Other Start: 09-22-2021 Telephone encounter Jenaro Lynch [facility] [place] Start: 09-21-2021 End: 09-21-2021 ambulatory Jenaro Lynch [facility] Other Start: 09-21-2021 Telephone encounter Jenaro Lynch [facility] [place] Start: 08-09-2021 End: 08-09-2021 ambulatory Jenaro Lynch [facility] Other Start: 08-09-2021 Telephone encounter Jenaro Lynch [facility] [place] Start: 08-02-2021 End: 08-02-2021 ambulatory Jenaro Lynch [facility] Other Start: 08-02-2021 Telephone encounter Jenaro Lynch [facility] [place] Start: 07-27-2021 End: 07-27-2021 ambulatory Jenaro Lynch [facility] Other Start: 07-27-2021 Office outpatient vi sit 25 minutes Jenaro Lynch [facility] [place] Start: 06-23-2021 End: 06-23-2021 ambulatory Jenaro Lynch [facility] Other Start: 06-23-2021 Telephone encounter Jenaro Lynch [facility] Start: 06-22-2021 Rx Renewal Jenaro Lynch Work Phone: [facility] 250 DO Work Phone: Start: 05-03-2021 End: 05-03-2021 ambulatory Jenaro Lynch Other [facility] Other Start: 05-03-2021 Telephone encounter Jenaro Lynch [facility] Procedures Date Procedure Procedure Detail Performing Clinician Start: 11-26-2023 Blood Culture 1 DO Jose Angel Lynch Work Phone: Start: 11-26-2023 Blood Culture 2 DO Jose Angel Lynch Work Phone: Start: 11-15-2023 Blood Culture 1 DO Jose Angel Lynch Work Phone: Start: 11-15-2023 Blood Culture 2 DO Jose Angel Lynch Work Phone: Start: 10-24-2023 Ecg routine ecg w/le ast [...] Start: 08-10-2023 Acid Fast Smear DO Jose Agnel Lynch Work Phone: Start: 08-10-2023 AFB Specimen [...] with iol implants Cardiac catheterization Jose Angel Fraustojoe Work Phone: cardiac stents Yeyo DELA CRUZ [...] procedure 10/21/2024 8:00 AM EDT Office Visit [facility] [address] [place] [address] Dolores Feldman, BATTERY CHARGER TESTER-VP STRATEGY [address] [place] [address] [facility] Start: 02-04-2024 Influenza vaccination Influenza Vaccine (Season Ended) [facility] Start: 11-15-2023 FUV, Provider: Raulito Inman, Status: Pen, Time: 2:40 PM FUV, Provider: Raulito Inman, Status: Pen, Time: 2:40 PM [facility] 250 DO Work Phone: Start: 10-02-2023 Acid Fast Culture Acid Fast Culture [facility] Start: 09-30-2023 Blood Culture 1 Blood Culture 1 [facility] Start: 09-30-2023 Blood Culture 2 Blood Culture 2 [facility] Start: 09-30-2023 Wound Culture Wound Culture [facility] Start: 09-21-2023 Abscess Culture Abscess Culture [facility] Start: 08-10-2023 Acid Fast Culture Acid Fast Culture [facility] Start: 08-05-2023 Wound Culture Wound Culture [facility] Start: 07-12-2023 Duplex scan of lower limb veins US venous duplex LE BI [facility] Start: 07-12-2023 US Lower extremity vein - bilateral [facility] Start: 07-12-2023 Duplex scan veins of upper limb US venous duplex UE LT [facility] Start: 07-12-2023 US Upper extremity vein - left [facility] Start: 02-15-2023 FUV, Provider: Dolores Velazquez, Status: Pen, Time: 10:00 AM FUV, Provider: Dolores Velazquez, Status: Pen, Time: 10:00 AM [facility] Work Phone: Start: 02-03-2023 COVID-19 Vaccine ( season) COVID-19 Vaccine ( season) [facility] Start: 01-25-2023 STRESS NUC, Provider: CHARISSE HHVI NUCLEAR [id number], Status: Pen, Time: 8:30 AM STRESS NUC, Provider: CHARISSE HHVI NUCLEAR [id number], Status: Pen, Time: 8:30 AM [facility] 600 DO Work Phone: Start: 07-12-2022 FUV, Provider: Raulito Inman, Status: Pen, Time: 9:20 AM FUV, Provider: Raulito Inman, Status: Pen, Time: 9:20 AM [facility] 250 DO Work Phone: Start: 10-26-2021 FUV, Provider: Raulito Inman, Status: Pen, Time: 9:30 AM FUV, Provider: Raulito Inman, Status: Pen, Time: 9:30 AM [facility] 250 DO Work Phone: Start: 03-05-2019 Pneumococcal Vaccine: Pediatrics (0 to 5 Years) and At-Risk Patients (6 to 64 Years) (2 of 2 - PCV) Pneumococcal Vaccine: Pediatrics (0 to 5 Years) and At-Risk Patients (6 to 64 Years) (2 of 2 - PCV) [facility] Start: 2015 Zoster Vaccines (1 of 2) Zoster Vaccines (1 of 2) [facility] Start: 1987 DTaP/Tdap/Td Vaccines (1 - Tdap) DTaP/Tdap/Td Vaccines (1 - Tdap) [facility] Start: 1984 Hepatitis B Vaccines (1 of 3 - 19+ 3-dose series) Hepatitis B Vaccines (1 of 3 - 19+ 3-dose series) [facility] Start: 1984 Urine screening for protein Diabetes: Urine Protein Screening [facility] Start: 1983 Hepatitis C screening Hepatitis C Screening [facility] Start: 1975 Diabetic foot examination Diabetes: Foot Exam [facility] Start: 1975 Glaucoma screening Diabetes: Retinopathy Screening [facility] Start: 1966 MMR Vaccines (1 of 1 - Standard series) MMR Vaccines (1 of 1 - Standard series) [facility] Start: 1965 Hemoglobin A1c measurement Diabetes: Hemoglobin A1C [facility] Start: 1965 HIV screening HIV Screening [facility] Start: 1965 Lipid panel Lipid Panel [facility] Start: 1965 Screening for malignant neoplasm of colon [facility] Start: 1965 Yearly Adult Physical Yearly Adult Physical [facility] Patient Education Dependent Edema (DC) [facility] Work Phone: Patient referral [facility] Work Phone: Immunizations Immunization Date Immunization Notes Care Provider Sachin pettit 11-13-2020 Pfizer-BioNTech COVI D-19 Vacc 30 MCG/0.3ML Intramuscular Suspension Jenaro Lynch Work Phone: [facility] 10-23-2020 Pfizer-BioNTech COVI D-19 Vacc 30 MCG/0.3ML Intramuscular Suspension Jenaro Lynch Work Phone: [facility] 01-14-2019 influenza, seasonal, injectable Jenaro Lynch Other [facility] 01-14-2019 influenza virus vacc ine, unspecified formulation Yeyo ROWE [facility] 04-02-2018 influenza virus vacc ine, unspecified formulation Yeyo ROWE [facility] 04-02-2018 influenza, injectabl e, quadrivalent, preservative free DO Jenaro Lynch Work Phone: [facility] 03-05-2018 influenza virus vacc ine, unspecified formulation Jenaro Lynch Work Phone: [facility] Work Phone: 03-05-2018 pneumococcal polysaccharide vaccine, 23 valent Jenaro Lynch Work Phone: [facility] Work Phone: 03-07-2016 influenza virus vacc ine, unspecified formulation Yeyo ROWE [facility] 03-07-2016 influenza, injectabl e, quadrivalent, preservative free Jenaro Lynch Work Phone: [facility] 600 DO Work Phone: 02-22-2016 pneumococcal polysaccharide vaccine, 23 valent Jenaro Lynch Work Phone: [facility] Payers Date Payer Category Payer Unknown 2023 Self-pay [id number] 2022 Private Health Insurance [id number] 2022 Private Health Insurance [id number] 2022 Private Health Insurance [id number] 2022 Medicaid [id number] 1965 Unknown [id number] 2.16.84 0.1.882524.3.579.2.593 1965 Unknown [id number] 2.16.8 40.1.410208.3.579.2.1068 1965 Unknown [id number] 2.16. 840.1.655312.3.579.2.356 1965 Unknown [id number] 2.16. 840.1.926423.3.579.2.356 1965 Unknown [id number] 2.16. 840.1.810148.3.579.2.356 1965 Unknown [id number] 2.16.8 40.1.808420.3.579.2.1244 1965 Unknown [id number] 2.16.8 40.1.861823.3.579.2.727 1965 Unknown [id number] 2.16.8 40.1.756762.3.579.2.1286 1965 Unknown [id number] 2.16.8 40.1.918996.3.579.2.1286 1965 Unknown [id number] 2.16.8 40.1.553071.3.579.2.128 1965 Unknown [id number] 2.16.8 40.1.648151.3.579.2.1285 1965 Unknown [id number] 2.16.8 40.1.161072.3.579.2.1285 1965 Unknown [id number] 2.16.8 40.1.856323.3.579.2.1285 1965 Unknown [id number] 2.16.8 40.1.254005.3.579.2.1285 1965 Unknown [id number] 2.16.8 40.1.678355.3.579.2.1285 1965 Unknown [id number] 2.16.8 40.1.981728.3.579.2. 1965 Unknown [id number] 2.16.8 40.1.773497.3.579.2. 1965 Unknown [id number] 2.16.8 40.1.830140.3.579.2. 1965 Unknown [id number] 2.16.8 40.1.798175.3.579.2.7 1965 Unknown [id number] 2.16.8 40.1.023760.3.579.2.72 1965 Unknown [id number] 2.16.8 40.1.560112.3.579.2.727 1965 Unknown [id number] 2.16.8 40.1.631620.3.579.2.72 1965 Unknown [id number] 2.16.8 40.1.607622.3.579.2.72 1965 Unknown [id number] 2.16.8 40.1.305961.3.579.2.72 1965 Unknown [id number] 2.16.8 40.1.372831.3.579.2.727 1965 Unknown [id number] 2.16.8 40.1.220570.3.579.2.727 1965 Unknown [id number] 2.16.8 40.1.838242.3.579.2.727 1965 Unknown [id number] 2.16.8 40.1.659165.3.579.2.727 1965 Unknown [id number] 2.16.8 40.1.364096.3.579.2.727 1965 Unknown [id number] 2.16.8 40.1.036865.3.579.2.727 1965 Unknown [id number] 2.16.8 40.1.824020.3.579.2.727 1965 Unknown [id number] 2.16.8 40.1.911784.3.579.2.1286 1959 Unknown [id number] 2.1 6.840.1.898554.19 Unknown [id number] 2.16.8 40.1.945213.3.579.2.531 Unknown [id number] 2.16.8 40.1.440031.3.579.2.531 Unknown [id number] 2.16.8 40.1.966407.3.579.2.531 Unknown [id number] 2.16.8 40.1.631493.3.579.2.531 Unknown [id number] 2.16.8 40.1.719352.3.579.2.531 Unknown [id number] 2.16.8 40.1.539483.3.579.2.531 Social History Date Type Detail Facility Start: 08-08-2023 Caffeine use Caffeine use [facility] Other Comment on above: 2 cups coffee, 4-6 c ups tea daily, occaional soda; qauit 07/2020; Start: 08-08-2023 Sex Assigned At F [facility] Start: 07-14-2020 End: 07-12-2023 Tobacco smoking status NHIS Smoker (finding) [facility] Start: 1965 Sex Assigned At Male F [facility] Start: 11-23-2022 End: 10-23-2023 Tobacco smoking status Heavy tobacco smoker (finding) [facility] Tobacco smoking status Never [facility] Start: 10-24-2023 Tobacco smoking stat us NHIS Ex-smoker [facility] End: 06-05-2020 History of tobacco use Cigarette Smoker [facility] Work Phone: Start: 10-24-2023 Tobacco use and exposure Smokeless tobacco non-user [facility] Work Phone: Start: 10-24-2023 Alcoholic beverage intake Lifetime non-drinker (finding) [facility] Work Phone: Start: 1965 Sex assigned at Not on file [facility] Work Phone: Start: 10-14-2023 End: 10-24-2023 Exposure to SARS-CoV-2 (event) Not sure [facility] Medical Equipment Procedure Code Equipment Code [...] bilia ry stentMultiple peripheral artery stent, bare-metal ()[id number] FDA Start: 07-14-2020 Functional Status Date Assessment Result Facility 10-23-2023 Functional Status No [facility] 06-02-2023 Functional Status N/A [facility] 02-14-2023 Functional Status N/A [facility] 01-30-2023 Functional Status N/A [facility] 11-23-2022 Functional Status N/A [facility] Clinical Notes 06-23-2021 to 10-24-2023 Raulito Inman MD - 10/24/2023 10:20 AM EDTPatient Instructions Note Date & Type Note Facility 10-24-2023 Note Sinus tachycardia Rightward axis Poor anterior R wave progression QTc 481 ms [facility]PA 10-24-2023 History of Present illness Narrative Subjective [...] Scribe Attestation By signing my name below, Rosemary Watkins LPN , Scribe attest that this documentation [...] discussion and plan. documented in this encounter [facility] Work Phone: 10-24-2023 Instructions Rosemary Benavides [...] a cardiac standpoint documented in this encounter [facility] Work Phone: 07-13-2023 Hospital Discharge instructions Follow Up Care 07/13/2023 12:04:02 With:SOLEDAD HERRERA, Yeyo Blum, URL Address: [address] [place] [address]- When: Unknown [facility] 06-26-2023 Evaluation note Encounter Date Diagnosis Assessment Notes Jun, Hyperlipidemia (ICD-10 - E78.5) [facility] Other [id number] Hospital Discharge instructions Patient Education 06/02/2023 11:57:43 [...] urethra. Follow these instructions at home: Take hokh-nox-rcojjwn and prescription medicines only as told by [...] provider. Document Revised: 12/08/2021 Document Reviewed: 12/08/2021 [employer] Patient Education 2022 [employer]. [facility] 06/01/2023 14:05:36 With:SOLEDAD HERRERA, Yeyo Blum, URL Address: [address] [place] [address]- When: Unknown [facility]-12[facility] Evaluation note* Encounter Date Diagnosis Assessment Notes Treatment Notes Treatment Clinical Notes May, 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) [facility] Other 11-24-2023 Evaluation note* Encounter Date Diagnosis Assessment Notes Treatment Notes Treatment Clinical Notes Apr, Diabetic nephropathy (ICD-10 - E11.21) [facility] Other 11-07-2023 Evaluation note* Encounter Date Diagnosis Assessment Notes Treatment Notes Treatment Clinical Notes Apr, Left arm pain (ICD-10 - M79.602) [facility] Other 11-02-2023 Evaluation note* Encounter Date Diagnosis [...] and to have his surgery as scheduled. 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 He was found to have developed [...] to continue to montior this at home. [facility] Other 10-09-2023 Note [id number] 02-14-2023 Hospital Discharge instructions Patient Education [...] including vitamins, herbs, eye drops, creams, and uesd-iwr-zyysehv medicines. Any problems you or family members [...] provider tells you to take them. Taking bukn-iix-gheheud medicines, vitamins, herbs, and supplements. Surgery safety [...] provider. Document Revised: 02/15/2022 Document Reviewed: 02/15/2022 [employer] Patient Education 2022 Where[employer]. [facility]09-12-2023 Note [id number]:127[facility] 02-14-2023 [id number]:127[facility]08-28-2023 Hospital Discharge instructions Patient Education 01/30/2023 [...] including vitamins, herbs, eye drops, creams, and qjqr-xay-rhqshnh medicines. ?Whether you are or may be [...] provider. Document Revised: 02/02/2022 Document Reviewed: 12/25/2020 [employer] Patient Education 2022 [employer]. 01/30/2023 11:22:30 Cystoscopy Cystoscopy Cystoscopy is a [...] including vitamins, herbs, eye drops, creams, and pyev-sqq-kstvyso medicines. Any problems you or family members [...] provider tells you to take them. Taking dimq-yxh-mhfakpj medicines, vitamins, herbs, and supplements. Tests You [...] Follow these instructions at home: Medicines Take jwjf-jpu-fbnssdv and prescription medicines only as told by [...] provider. Document Revised: 02/02/2022 Document Reviewed: 01/01/2021 [employer] Patient Education 2022 Where[employer]. Follow Up Care 11/23/2022 13:02:56 With:SOLEDAD HERRERA, Yeyo Blum, URL Address: [facility] [address] [place] [id number]- [phone] When: Unknown Comments:sched cysto/uros [facility] Aurelio 08-15-2023 Evaluation note* Encounter Date Diagnosis Assessment Notes Treatment Notes Treatment Clinical Notes Jan, Diabetic nephropathy (ICD-10 - E11.21) [facility] Other 06-29-2023 Evaluation note* Encounter Date Diagnosis [...] reviewed. 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 [facility] Other 06-21-2023 Hospital Discharge instructions Patient Education [...] provider. Document Revised: 08/11/2021 Document Reviewed: 05/07/2021 [employer] Patient Education 2021 WhereNet. Follow Up Care 09/14/2022 14:23:26 With:SOLEDAD HERRERA, Yeyo Blum, URL Address: [facility] [address] [place] [address]- When: Unknown [facility] 05-05-2023 Evaluation note* Encounter Date Diagnosis Assessment Notes Treatment Notes Treatment Clinical Notes October, Erectile dysfunction, unspecified erectile dysfunction type (ICD-10 - N52.9) [facility] Other 04-19-2023 Evaluation note* Encounter Date Diagnosis Assessment Notes Treatment Notes Treatment Clinical Notes Sep, 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) [facility] Other 04-12-2023 Evaluation note* Encounter Date Diagnosis Assessment Notes Treatment Notes Treatment Clinical Notes Sep, 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) Sep, 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) [facility] Other 03-20-2023 Evaluation note* Encounter Date Diagnosis Assessment Notes Treatment Notes Treatment Clinical Notes Aug, Diabetic nephropathy (ICD-10 - E11.21) [facility] 03-03-2023 Evaluation note* Encounter Date Diagnosis Assessment Notes Treatment Notes Treatment Clinical Notes Aug, Pain in right leg (ICD-10 - M79.604) [facility] 03-02-2023 Evaluation note* Encounter Date Diagnosis Assessment Notes Treatment Notes Treatment Clinical Notes Aug, Pain in right leg (ICD-10 - M79.604) [facility] 02-20-2023 Evaluation note* Encounter Date Diagnosis Assessment Notes Treatment Notes Treatment Clinical Notes Jul, Intractable episodic headache, unspecified headache type (ICD-10 - R51.9) [facility] Other 02-14-2023 Evaluation note* Encounter Date Diagnosis Assessment Notes Treatment Notes Treatment Clinical Notes Jul, Acute intractable headache, unspecified headache type (ICD-10 - R51.9) [facility] 02-08-2023 Evaluation note* Encounter Date Diagnosis Assessment Notes Treatment Notes Treatment Clinical Notes Jul, Headache (ICD-10 - R51.9) [facility] 01-30-2023 Evaluation note* Encounter Date Diagnosis [...] medication and we will continue to monitor. [facility] Other 12-21-2022 Evaluation note* Encounter Date Diagnosis Assessment Notes Treatment Notes Treatment Clinical Notes May, Diabetic nephropathy (ICD-10 - E11.21) [facility] Other 11-21-2022 Evaluation note* Encounter Date Diagnosis Assessment Notes Treatment Notes Treatment Clinical Notes Apr, Diabetic nephropathy (ICD-10 - E11.21) [facility] 11-15-2022 Evaluation note* Encounter Date Diagnosis Assessment Notes Treatment Notes Treatment Clinical Notes Apr, Pain in right leg (ICD-10 - M79.604) [facility] 10-18-2022 Evaluation note* Encounter Date Diagnosis Assessment Notes Treatment Notes Treatment Clinical Notes Mar, Diabetic nephropathy (ICD-10 - E11.21) [facility] 09-13-2022 Evaluation note* Encounter Date Diagnosis Assessment Notes Treatment Notes Treatment Clinical Notes Feb, Hypertensive chronic kidney disease with stage 1 through stage 4 chronic kidney disease, or unspecified chronic kidney disease (ICD-10 - I12.9) [facility] Other 09-13-2022 Evaluation note* Encounter Date Diagnosis [...] scheduled. Feb, Atherosclerotic hear t disease of [place] coronary artery without angina pectoris (ICD-10 [...] is to continue to follow with the statistical consultant as scheduled. Feb, Pain in right leg [...] Noted upon review of blood work results. [facility] Other 08-19-2022 Evaluation note* Encounter Date Diagnosis Assessment Notes Treatment Notes Treatment Clinical Notes Jan, Diabetic nephropathy (ICD-10 - E11.21) [facility] 08-17-2022 Evaluation note* Encounter Date Diagnosis Assessment Notes Treatment Notes Treatment Clinical Notes Jan, Diabetic nephropathy (ICD-10 - E11.21) [facility] 07-21-2022 Evaluation note* Encounter Date Diagnosis Assessment Notes Treatment Notes Treatment Clinical Notes Dec, Diabetic nephropathy (ICD-10 - E11.21) [facility] 06-22-2022 Evaluation note* Encounter Date Diagnosis Assessment Notes Treatment Notes Treatment Clinical Notes Nov, Diabetic nephropathy (ICD-10 - E11.21) [facility] 05-23-2022 Evaluation note* Encounter Date Diagnosis Assessment Notes Treatment Notes Treatment Clinical Notes October, Diabetic nephropathy (ICD-10 - E11.21) [facility] 05-17-2022 Evaluation note* Encounter Date Diagnosis [...] E11.59) October, 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 Inman. For this October, Other He did quit smoking since July 2020 [facility] Other 05-16-2022 Evaluation note* Encounter Date Diagnosis Assessment Notes Treatment Notes Treatment Clinical Notes October, Hypertensive chronic kidney disease with stage 1 through stage 4 chronic kidney disease, or unspecified chronic kidney disease (ICD-10 - I12.9) October, Stage 3 chronic kidney disease, unspecified whether stage 3a or 3b CKD (ICD-10 - N18.30) [facility] Other 05-06-2022 Evaluation note* Encounter Date Diagnosis Assessment Notes Treatment Notes Treatment Clinical Notes October, Pain in right leg (ICD-10 - M79.604) October, Pain in left leg (ICD-10 - M79.605) [facility] Other 04-20-2022 Evaluation note* Encounter Date Diagnosis Assessment Notes Treatment Notes Treatment Clinical Notes Sep, Diabetic nephropathy (ICD-10 - E11.21) [facility] Other 04-19-2022 Evaluation note* Encounter Date Diagnosis Assessment Notes Treatment Notes Treatment Clinical Notes Sep, Anxiety (ICD-10 - F41.9) Sep, Hypertensive chronic kidney disease with stage 1 through stage 4 chronic kidney disease, or unspecified chronic kidney disease (ICD-10 - I12.9) [facility] 03-07-2022 Evaluation note* Encounter Date Diagnosis Assessment Notes Treatment Notes Treatment Clinical Notes Aug, Anxiety (ICD-10 - F41.9) [facility] Other 02-22-2022 Evaluation note* Encounter Date Diagnosis [...] 12 pound weight loss from last visit. [facility] Other [id number] Evaluation note* Encounter Date Diagnosis Assessment Notes Treatment Notes Treatment Clinical Notes Jun, Diabetic nephropathy (ICD-10 - E11.21) Oral IntenseDebate Other Evaluation + Plan note Future Appointments Appointment Date:12/21/2022 11:00:00 AM Scheduled Provider: Location:[facility] Appointment Type:URO Nurse Visit Appointment Date:01/30/2023 10:30:00 AM Scheduled Provider:Yey[facility] ROWE [facility] Office Visit [facility] Evaluation + Plan note Future Appointments Appointment Date:01/30/2023 10:15:00 AM Scheduled Provider:Yeyo ROWE MD Location:[facility] Appointment Type:URO Office Visit [facility] [employer] Evaluation + Plan note Future Appointments Appointment Date:02/01/2023 10:00:00 AM Scheduled Provider: Location:[facility] Appointment Type:Urology CALL PAT FT Appointment Date:02/08/2023 09:00:00 AM Scheduled Provider: Location:[facility] Appointment Type:Urology FT Appointment Date:02/14/2023 09:15:00 AM Scheduled Provider: Location:[facility] Appointment Type:Urology FT [facility] evaluation + Plan note Future Appointments Appointment Date:02/14/2023 09:15:00 AM Scheduled Provider: Location:[facility] Future Appointments Appointment Date:03/20/2023 08:45:00 AM Scheduled Provider: Location:[facility] Appointment Type:URO Nurse Visit Appointment Date:04/05/2023 08:00:00 AM Scheduled Provider:Yeyo ROWE MD Location:[facility] Future Appointments Appointment Date:05/03/2023 08:45:00 AM Scheduled Provider:Yeyo ROWE MD Location:[facility] Appointment Type:URO Office Visit [facility] Evaluation + Plan note Future Appointments Appointment Date:07/03/2023 10:15:00 AM Scheduled Provider:Yeyo ROWE MD Location:[facility] Appointment Type:URO Office Visit [facility] evaluation + Plan note Future Appointments Appointment Date:10/23/2023 09:30:00 AM Scheduled Provider:Padmini Montes MD [facility] noteNo InformationNort IntenseDebate Other Evaluation noteNo assessment information available [facility] Work Phone: Evaluation note* Diagnosis History of PTCA Postsurgical percutaneous transluminal coronary angioplasty status Hyperlipidemia, unspecified hyperlipidemia type Encounter for pre-operative cardiovascular clearance Former smoker Personal history of tobacco use, presenting hazards to health documented in this encounter [facility] Work Phone: Hismqea general Narrative - Reported* Type Description Date [...] Heart stent placed by Dr. Bowie at [facility] 07/26/15 Surgical History Left knee arthroscopy 11/2015 Surgical History carpal tunnel release, right an d left 08/2016 Surgical History hydrocele repair 08/2016 Surgical History cardiac cath [facility] [place] [place] 04/02/18 Surgical History Lt LE iliac DSA, angioplasty & stenting 09/27/2018 Surgical History Left Angiogram with one stent - Dr. Boss 07/2020 Hospitalization History Deep Depression, Anxiety; [facility] 11-11-10 Hospitalization History [facility] [place] [place] hypoxemia and hyper capnic respirtory failure 11/11/16 Hospitalization History chest pain [facility] [place] [place] 04/02/18 [facility] Other History of Present illness NarrativeReturns in [...] impact on blood pressure and diabetes [facility] Work Phone: History of Present [...] regimen. He denies medication side effects. [facility] 600 DO Work Phone: History of [...] medication regimen. He denies medication side effects. [facility] 250 DO Work Phone: Hospital course Narrative No data available for this section [facility] Discharge instructions No data available for this section [facility] Progress note No data available for this section [facility] Chief Complaint SOLOMON FELDMAN is being seen [...] Unknown Not Specified Unknown Heart disease Unknown Relationship Condition Age at Onset Recorded Date/T yary mother Heart disease Unknown Peripheral arterial disease Unknown father Unknown grandparent Unknown mother Unknown Heart disease Unknown Reason for Referral Specialty Diagnoses / Procedures Referred By Contac t Referred To Contact Diagnoses Encounter for pre-operative cardiovascular clearance Procedures ECG 12 Lead Raulito Inman MD [address] [address] Referral ID Status Reason Start Date Expiration Date V isits Requested Visits Authorized [id number] Authorized 10/24/2023 10/23/2024 1 1 Specialty Diagnoses / Procedures Referred By Brett mandujano Referred To Contact Cardiology Diagnoses History of PTCA Procedures Follow Up In Cardiology Raulito Inman MD [address] [facility] [address] [place] [address] Referral ID Status Reason Start Date Expiration Date V isits Requested Visits Authorized [id number] Authorized 10/24/2023 10/23/2024 1 1 Reason CANCELLED consult and treat; previous patient of Dr. Sharpe last seen in 2020; persisting intractable headaches Diagnosis 1 Acute intractable he adache, unspecified headache type (R51.9) Referral Organization [facility] Referring Provider First Name Jenaro Referring Provider Last Name Syed Referring Provider Specialty Family Jono hunter Referred Organization [facility] Referred Provider Lyssa Sharpe Referred Address [address],[place], [place],[address] Referred Provider Specialty Neurology Referral Priority Routine [...] 07/28/2022 10:23:53 AM >Spoke with Marilynn at [facility] and patient has been scheduled and [facility]22 10:27:39 AM >Telephone encounter was sent Reason 03/31/22 @ 2:45pm consult and treat Diagnosis 1 Type 2 diabetes bobby itus with circulatory disorder (E11.59) Referral Organization [facility] [place] Referring Provider First Name Jenaro Referring Provider Last Name Syed Referring Provider Specialty Family Prac dale Referred Organization [facility] Referred Provider Doris Barnes Referred Address [address],[place], [place],[address] Referred Provider Specialty Nurse Jono calderon Referral [...] Amb Documentation Unknown Amb Documentation Unknown Unknown Chief Complaint Unknown Amb Documentation Unknown Unknown Unknown Advance Directives No Advanced Directives [...] CYNTHIA Specialty Diagnoses / Procedures Referred By Conttoshia t Referred To Contact Diagnoses Encounter for pre-operative cardiovascular clearance Procedures ECG 12 Lead Raulito Inman MD [address] [facility] [address] [address] Referral ID Status Reason Start Date Expiration Date V isits Requested Visits Authorized [id number] Authorized 10/24/2023 10/23/2024 1 1 Care Teams [...] Active Jenaro Lynch DO [facility] Attending Provider Active Team Status: Inactive Member Role Status Dates Jenaro Lynch DO Primary Care Provider Active Sta rt: July 12, 2023 End: July 12, 2023 Nancy Wilson MD Emergency Provider Active St art: July 12, 2023 End: July 12, 2023 Team Status: Active Member Role Status Dates Jenaro Lynch DO Primary Care Provider Active Sta rt: July 26, 2023 Mariely Davis , RMA Attending Provider Active Start: July 26, 2023 [...] Provider Active Sta rt: October 06, 2023 [employer] Relationship Specialty Start Date End Date Jenaro Lynch DO PCP - General 04/17/19 Team Status: Active Member Role Status Dates Fely Nguyen DO Attending Provider Active Start: November 15, 2023 Team Status: Active Member Role Status Dates Hernan Crook Attending Provider Active Start: November 26, 2023 Team Status: Active Member Role Status Dates Delfina Farah MD Attending Provider Active Sta rt: December 09, 2023 Team Status: Active Member Role Status Dates Darrell Navarrete MD Attending Provider Active Star t: December 10, 2023 Team Status: Inactive Member Role Status Dates Paula Elias DPM MS Attending Provider Active Start: December 15, 2023 End: December 15, 2023 Goals (unrecognized section and content) Goals [...] DATE CREATED AUTHOR AUTHOR'S ORGANIZ ATION 01/27/2023 [facility] DATE CREATED AUTHOR AUTHOR'S ORGANIZ ATION 02/16/2023 [facility] DATE CREATED AUTHOR AUTHOR'S ORGANIZ ATION 02/16/2023 [facility] DATE CREATED AUTHOR AUTHOR'S ORGANIZ ATION 10/22/2023 [facility] DATE CREATED AUTHOR AUTHOR'S ORGANIZ ATION 10/26/2023 [facility] DATE CREATED AUTHOR AUTHOR'S ORGANIZ ATION 10/26/2023 [facility] DATE CREATED AUTHOR AUTHOR'S ORGANIZ ATION 11/16/2023 [facility] DATE CREATED AUTHOR AUTHOR'S ORGANIZ ATION 11/25/2023 [facility] DATE CREATED AUTHOR AUTHOR'S ORGANIZ ATION 11/29/2023 [facility] DATE CREATED AUTHOR AUTHOR'S ORGANIZ ATION 12/01/2023 [facility] DATE CREATED AUTHOR AUTHOR'S ORGANIZ ATION 12/21/2023 [facility] FOR RECORDS PERTAINING TO PATIENTS [...] BE BASED ON THE PRIMARY CLINICAL RECORDS. [facility] [employer] [facility]. provides no warranty or guarantee of the accuracy or completeness of information in this document.
[2023-12-21 19:54] LABS: Glucometer 137 mg/dL (74-106)
[2023-12-21 20:04] LABS: PCO2 VBG 39.8 mmHg (40.0-52.0); pH VBG 7.448 (7.330-7.430)
[2023-12-21 20:05] LABS: Basophils Absolute Auto 0.1 10^3/uL (0.0-0.1); Basophils Percent Auto 0.8 % (0.2-2.0); Eosinophils Absolute Auto 0.5 10^3/uL (0.0-0.7); Eosinophils Percent Auto 4.2 % (0.9-7.0); Hematocrit 28.2 % (42.0-54.0); Hemoglobin 8.6 g/dL (14.0-18.0); Immature Granulocytes Abs Auto 0.13 10^3/uL (0.00-0.03); Lymphocytes Absolute Auto 3.4 10^3/uL (1.2-3.8); Lymphocytes Percent Auto 26.6 % (20.5-60.0); Mean Corpuscular HGB Conc 30.5 g/dL (29.9-35.2); Mean Corpuscular Hemoglobin 24.7 pg (25.9-34.0); Mean Platelet Volume 10.2 fL (9.5-13.5); Monocytes Absolute Auto 0.6 10^3/uL (0.3-0.8); Monocytes Percent Auto 4.9 % (1.7-12.0); Neutrophils Absolute Auto 7.9 10^3/uL (1.4-6.5); Neutrophils Percent Auto 62.5 % (43.0-75.0); Platelet Count 502 10^3/uL (150-450); Red Blood Count 3.48 10^6/uL (4.70-6.10); Red Cell Distribution Width 16.6 % (11.0-15.0); White Blood Count 12.6 10^3/uL (4.0-11.0)
[2023-12-21] MEDS: 0.9 % SODIUM CHLORIDE 1,000 ML 1000 ML IV (20:09)
[2023-12-21] MEDS: ONDANSETRON PF 4 MG/2 ML VIAL IV (20:09)
[2023-12-21] MEDS: FENTANYL CITRATE/PF 100 MCG/2 ML VIAL 50 MCG IV (20:09)
[2023-12-21] MEDS: ASPIRIN 81 MG TAB.CHEW 162 MG PO (20:09)
[2023-12-21] MEDS: METHYLPREDNISOLONE SOD SUCC PF 125 MG/2 ML VIAL IVP (20:10)
[2023-12-21] MEDS: ALBUTEROL SULFATE 2.5 MG/3 ML VIAL NEB IH (20:11)
[2023-12-21 20:22] LABS: Lactate/Lactic Acid 1.6 mmol/L (0.4-2.0)
[2023-12-21 20:29] LABS: Alanine Aminotransferase 13 U/L (16-63); Albumin Globulin Ratio 0.7; Albumin Level 2.8 g/dL (3.4-5.0); Alkaline Phosphatase 132 U/L (46-116); Anion Gap 12.4; Aspartate Amino Transferase 10 U/L (15-37); BUN Creatinine Ratio 10.4; Bilirubin Total 0.3 mg/dL (0.2-1.0); Calcium 7.8 mg/dL (8.5-10.1); Carbon Dioxide 29.9 mmol/L (21.0-32.0); Chloride 99 mmol/L (98-107); Estimated GFR (African America 29 (>=60); Estimated GFR (Non-African Ame 23 (>=60); Glucose 56 mg/dL (74-106); Potassium 3.3 mmol/L (3.5-5.1); Sodium 138 mmol/L (136-145); Total Protein 6.8 g/dL (6.4-8.2); Troponin I High Sensitivity 6.4 pg/mL (4.0-76.1)
[2023-12-21 20:31] LABS: INR 1.05; Partial Thromboplastin Time 26.6 sec (22.3-36.2); Prothrombin Time 11.1 sec (9.0-11.6)
--- NOTE | 2023-12-21 20:31 | XR_ITS ---
[address] [address] Patient Name: MYRA FELIPE MRN: [id number] date: 1965 Sex: M Assigned Patient Location: ER Current Patient Location: ED.MAIN Accession/Order Number: [id number] Exam Date: 12/21/2023 20:37 Report Date: 12/21/2023 21:53 At the request of: ULISITO LIANG Procedure: XR chest 1V EXAMINATION: XR chest 1V, , 12/21/2023 8:37 PM EDT INDICATION: weakness HISTORY: Ordering Provider Reason for Exam: weakness Technologist Note: Additional: COMPARISON: None. TECHNIQUE: Chest x-ray: One view. FINDINGS: No pneumothorax, pleural effusion or focal airspace consolidation. Heart is normal in size. Bony thorax is unremarkable. XR/XR chest 1V IMPRESSION: No acute cardiopulmonary process. Electronically authenticated by: CHINYERE VALDEZ Date: 12/21/2023 21:53
[2023-12-21 22:04] LABS: Troponin I High Sensitivity 5.1 pg/mL (4.0-76.1)
--- OUTSIDE RECORDS SUMMARY | 2023-12-21 23:10 | XMS_ITS | CCD ---
Author Organization [facility] CliniSysd Care Team Providers Care Haulage Boss Name Role Phone Jenaro Lynch Unavailable Unavailable Unavailable Jenaro Lynch Unavailable Amina aFgan Unavailable Emily Whaleyn Unavailable MontserratAkin kapoor Unavailable DO Jenaro Lynch Primary Care Provider [phone] JERARDO Mclaughlin Attending Provider DO Jenaro Lynch Attending Provider [phone] SAM ., DUARTE Attending Unavailable ELAINE Hernandez, DUARTE Admitting Unavailable CONOR, DR LYSSA Blum Consulting Unavailable SYED, DR EASON Primary Care Unavailable DUARTE MÁRQUEZ Consulting Unavailable JENARO LYNCH Primary Care Physician [phone] Syed, Dr. Jenaro Orona Primary Care UnavailDolores [...] Care Provider MD Nancy Wilson Emergency Provider [phone] DO Jenaro Lynch Primary Care Provider MD Nancy Wilson Emergency Provider [phone] JERARDO Mclaughlin Attending Provider JERARDO Mclaughlin Referring Provider LINDSEY Elias Attending Provider DO Jenaro Lynch Primary Care Provider Jenaro Lynch DO Primary [...] skin (disorder) [facility] (20 sources) Penicillins; Translations: [Penicillins] Allergy to drug (finding) 11-05-19 14 Anaphylactoid reaction (disorder) [facility] (20 sources) Acetaminophen / oxyCODONE Drug Allergy vomiting [facility] Other (20 sources) tamsulosin; Translations: [TAMSULOSIN] Drug Allergy 07-14-19 21 hives [facility] (20 sources) PENICIILIN Propensity to adverse reactions SWELLING OF AIRWAY [facility] Other (10 sources) Acetaminophen; Translations: [ACETAMINOPHEN] Drug Allergy 07-14-19 21 Vomiting [facility] (11 sources) oxyCODONE; Translations: [Oxycodone] Drug Allergy 02-08-20 17 Vomiting [facility] (1 source) Penicillins Drug allergy (disorder) 09-23-19 14 [facility] Repository (16 sources) Penicillin G; Translations: [penicillin G benzathine] Drug Allergy [facility] (8 sources) Penicillin Drug Allergy anaphylaxis [facility] Other (1 source) Latex Allergy to substance 03-27-20 23 Unknown [facility] (1 source) Penicillins Drug Allergy 03-27-20 23 Anaphylaxis [facility] Work Phone: (4 sources) Isosorbide; Translations: [ISOSORBIDE MONONITRATE] Drug Allergy 08-05-19 15 [facility] Repository (1 source) Penicillins Drug allergy (disorder) 07-31-19 24 [facility] Repository (1 source) tamsulosin Drug Allergy 07-31-19 24 [facility] Repository Medications Current Medications Medication Drug Class(es) [...] 1:00am July 14, 2020 12:39pm Start: 10-10-2014 Ophir 325 mg-5 mg oral tablet 1 tab(s), [...] 1:00am Start: 02-14-2023 take 1 capsule by [facility] twice daily tamsulosin 0.4 mg Cap 0.4 mg = 1 cap(s), Oral, BID, # 60 cap(s), Refills(s) 3, Pharmacy: [facility]/pharmacy #[id number], 182, cm, 02/14/23 8:58:00 EDT, Height/Length Dosing, 94, kg, 01/30/23 10:24:00 EDT, Weight Dosing Start Date: 02/14/23 Status: Ordered take 1 capsule by [facility] once daily Tamsulosin HCl - 0.4 MG Oral Capsule TAKE 1 CAPSULE Daily Quantity: 0 Refills: 0 Ordered: 15-Feb-2023 DO [facility] (20 sources) Start: 01-27-2014 Start: 01-27-2014 [facility] as d irected Use as directed. Jan, Active Tiotropium [place] (Spiriva With Handihaler) 18 mcg capsule, w/inhalation device (5 sources) Start: 07-12-2023 take 1 capsule by inhalation once daily Tiotropium [place] (Spiriva With Handihaler) 18 mcg capsule, w/inhalation device Active 1 CAP INHALATION Daily July 12, 2023 1:00am puncture 1 cap using device; one dose = 2 inhalations Start: 07-12-2023 take 1 capsule by in halation once daily Tiotropium [place] (Spiriva With Handihaler) 18 mcg capsule, w/inhalation [...] Jun, Active take 2 tablets by mo [facility] at bedtime tiZANidine HCl [...] take 1 tablet by mouth once daily Olmesartan-Mckinnon chlorothiazide (Benicar Hct) 40-12.5 mg Tablet Discontinued [...] Provider: Syed Guerra take 2 tablets by [facility] twice daily before mealtime omeprazole OTC (PriLOSEC [...] [Coronary atherosclerosis of unspecified type of vessel, tribal or graft] Onset: 2 Resolved: 2 Chronic [...] limb due to atherosclerosis; Translations: [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, right leg] [...] sources) Long-term current use of insulin; 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] Episodic Other and [...] 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] Onset: 4 Unclassified (1 source) New [...] Test Name Value Interpretation Reference Range Facility [facility] 12-15-2023 L Specimen: [id number] Received: 12/15/23 Status: COLTON Nath Num: [id number] Spec Type: Surgical Subm Dr: Paula Elias DPM, MS Tissues: A DIGIT AMPUTATION (RT METATARSAL) Procedures: HE/3, Gross/Micro L4, Decalcification Age/ Patient Sex Location Account Attending Physician Solomon Feldman SR 58/M LABELL [id number] Paula Elias DPM, MS SPEC NUM: [id number] RECD: 12/15/23 STATUS: COLTON NATH NUM: [id number] SHAKIRA: 12/15/[address]: Paula Elias DPM, MS ENTERED: 12/15/[address] [facility] [address]: Aurelio,Jericho SPEC TYPE: Surgical DEPT: [...] and submitted following decalcification as follows: Specimen: [id number] Received: 12/15/23 Status: COLTON Yaplinda Num: [id number] Spec Type: Surgical Subm Dr: Paula Elias,LINDSEY, MS Tissues: A DIGIT AMPUTATION (RT METATARSAL) Procedures: HE/3, Gross/Micro L4, Decalcification Patient: Solomon Feldman SR [id number] (Continued) Specimen: [id number] Received: 12/15/23 (Continued) Gross Description (Continued) Signed (signature on file) Victor Hugo Sotelo MD 07/1206 Specimen: [id number] Received: 12/15/23 Status: COLTON Nath Num: [id number] Spec Type: Surgical Subm Dr: Paula Elias,LINDSEY, MS Tissues: A DIGIT AMPUTATION (RT METATARSAL) Procedures: HE/3, Gross/Micro L4, Decalcification Patient: Solomon Feldman SR [id number] (Continued) Specimen: [id number] Received: 12/15/23 (Continued) Gross Description (Continued) A1: Margin #1 A2: Margins #2, #3 A3: Margins #4, #5 TW Microscopic Description Microscopic examinations are performed supporting the above interpretation CPT Codes 92558, 60455 Specimen: [id number] Received: 12/15/23 Status: COLTON Nath Num: [id number] Spec Type: Surgical Subm Dr: Paula Elias,LINDSEY, MS Tissues: A DIGIT AMPUTATION (RT METATARSAL) Procedures: HE/3, Gross/Micro L4, Decalcification Patient: Solomon Feldman SR [id number] (Continued) Signed (signature on file) Chin-Jerry Sotelo MD 12/20/23 1207 Normal [facility] Basophils Auto (Bld) [#/Vol] on 12-10-2023 Basophils (Bld) [#/Vol] 0.1 10 3/uL 0.0-0.1 [facility] Basophils/100 WBC Auto (Bld) on 12-10-2023 Basophils/100 WBC (Bld) 0.9 % 0.2-2.0 [facility] Eosinophils/100 WBC Auto (Bl d)on 12-10-2023 Eosinophils/100 WBC (Bld) 2.6 % 0.9-7.0 [facility] Erythrocyte distribution wid th Auto (RBC) [Ratio]on 12-10-2023 Erythrocyte distribution width (RBC) [Ratio] 17.7 % High 11.0-15.0 [facility] Estimated glomerular filtrat ion rate (GFR) non- Americanon 12-10-2023 GFR/1.73 sq M.predicted among non-blacks MDRD (S/P/Bld) [Vol rate/Area] 38 mL/min/{1.73_m2} Low >=60 [facility] Globulin Calc (S) [Mass/Vol] on 12-10-2023 Globulin (S) [Mass/Vol] 3.9 g/dL [facility] Hematocrit Auto (Bld) [Volum e fraction]on 12-10-2023 Hematocrit (Bld) [Volume fraction] 34.2 % Low 42.0-54.0 [facility] Hemoglobin [Mass/volume] in Bloodon 12-10-2023 Hemoglobin (Bld) [Mass/Vol] 10.5 g/dL Low 14.0-18.0 [facility] Laboratory - Chemistry and C hemistry - challengeon 12-10-2023 Albumin [Mass/Vol] 2.8 g/dL Low 3.4-5.0 [facility] ALP [Catalytic activity/Vol] 119 U/L High 46-116 [facility] ALT [Catalytic activity/Vol] 11 U/L Low 16-63 [facility] AST [Catalytic activity/Vol] 10 U/L Low 15-37 [facility] Bilirubin [Mass/Vol] 0.4 mg/dL 0.2-1.0 [facility] Calcium [Mass/Vol] 8.4 mg/dL Low 8.5-10.1 [facility] Chloride [Moles/Vol] 101 mmol/L 98-107 [facility] CO2 [Moles/Vol] 27.0 mmol/L 21.0-32.0 [facility] Creatinine [Mass/Vol] 1.83 mg/dL High 0.70-1.30 [facility] GFR/1.73 sq M.predicted MDRD (S/P/Bld) [Vol rate/Area] 46 mL/min/{1.73_m2} Low >=60 [facility] Glucose [Mass/Vol] 113 mg/dL High 74-106 [facility] Potassium [Moles/Vol] 3.3 mmol/L Low 3.5-5.1 [facility] Protein [Mass/Vol] 6.7 g/dL 6.4-8.2 [facility] Sodium [Moles/Vol] 134 mmol/L Low 136-145 [facility] Urea nitrogen [Mass/Vol] 21.0 mg/dL High 7.0-18.0 [facility] Urea nitrogen/Creatinine [Mass ratio] 11.5 mg/mg [facility] Laboratory - Hematology and Cell countson 12-10-2023 Immature granulocytes/100 WBC (Bld) 0.3 % 0.0-0.5 [facility] Leukocytes [#/volume] correc jorge for nucleated erythrocytes in Blood by Automated counon 12-10-2023 WBC corrected for nucl RBC Auto (Bld) [#/Vol] 9.8 10 3/uL 4.0-11.0 [facility] Lymphocytes Auto (Bld) [#/Vo l]on 12-10-2023 Lymphocytes (Bld) [#/Vol] 1.5 10 3/uL 1.2-3.8 [facility] Lymphocytes/100 WBC Auto (Bl d)on 12-10-2023 Lymphocytes/100 WBC (Bld) 15.8 % Low 20.5-60.0 [facility] MCH Auto (RBC) [Entitic mass ]on 12-10-2023 MCH (RBC) [Entitic mass] 25.1 pg Low 25.9-34.0 [facility] MCHC Auto (RBC) [Mass/Vol]on 12-10-2023 MCHC (RBC) [Mass/Vol] 30.7 g/dL 29.9-35.2 [facility] MCV Auto (RBC) [Entitic vol] on 12-10-2023 MCV (RBC) [Entitic vol] 81.6 fL 80.0-94.0 [facility] Monocytes Auto (Bld) [#/Vol] on 12-10-2023 Monocytes (Bld) [#/Vol] 1.2 10 3/uL High 0.3-0.8 [facility] Monocytes/100 WBC Auto (Bld) on 12-10-2023 Monocytes/100 WBC (Bld) 11.9 % 1.7-12.0 [facility] Neutrophils Auto (Bld) [#/Vo l]on 12-10-2023 Neutrophils (Bld) [#/Vol] 6.7 10 3/uL High 1.4-6.5 [facility] Neutrophils/100 WBC Auto (Bl d)on 12-10-2023 Neutrophils/100 WBC (Bld) 68.5 % 43.0-75.0 [facility] No Panel Informationon 12-09 Eosinophils # (Auto) 0.3 10 3/uL 0.0-0.7 [facility] Immature Granulocyte # (Auto) 0.03 10 3/uL 0.00-0.03 [facility] Platelet mean volume Auto (B ld) [Entitic vol]on 12-10-2023 Platelet mean volume (Bld) [Entitic vol] 10.2 fL 9.5-13.5 [facility] Platelets Auto (Bld) [#/Vol] on 12-10-2023 Platelets (Bld) [#/Vol] 240 10 3/uL 150-450 [facility] RBC Auto (Bld) [#/Vol]on RBC (Bld) [#/Vol] 4.19 10 6/uL Low 4.70-6.10 [facility] Serum or plasma albumin/glob ulin mass ratioon 12-10-2023 Albumin/Globulin [Mass ratio] 0.7 {ratio} [facility] Serum or plasma anion gap de terminationon 12-10-2023 Anion gap [Moles/Vol] 9.3 mmol/L [facility] Basophils Auto (Bld) [#/Vol] on 12-09-2023 Basophils (Bld) [#/Vol] 0.1 10 3/uL 0.0-0.1 [facility] Basophils/100 WBC Auto (Bld) on 12-09-2023 Basophils/100 WBC (Bld) 1.0 % 0.2-2.0 [facility] Eosinophils/100 WBC Auto (Bl d)on 12-09-2023 Eosinophils/100 WBC (Bld) 1.6 % 0.9-7.0 [facility] Erythrocyte distribution wid th Auto (RBC) [Ratio]on 12-09-2023 Erythrocyte distribution width (RBC) [Ratio] 17.7 % High 11.0-15.0 [facility] Estimated glomerular filtrat ion rate (GFR) non- Americanon 12-09-2023 GFR/1.73 sq M.predicted among non-blacks MDRD (S/P/Bld) [Vol rate/Area] 31 mL/min/{1.73_m2} Low >=60 [facility] Fibrin D-dimer [Presence] in Platelet poor plasma by Latex agglutinationon 12-09-2023 Fibrin D-dimer LA Ql (PPP) 3.76 mg/L FEU High <=0.59 [facility] Comment on above: RESULTS CALLED TO DR [...] on 12-09-2023 Globulin (S) [Mass/Vol] 4.6 g/dL [facility] Hematocrit Auto (Bld) [Volum e fraction]on 12-09-2023 Hematocrit (Bld) [Volume fraction] 39.2 % Low 42.0-54.0 [facility] Hemoglobin [Mass/volume] in Bloodon 12-09-2023 Hemoglobin (Bld) [Mass/Vol] 12.2 g/dL Low 14.0-18.0 [facility] Laboratory - Chemistry and C hemistry - challengeon 12-09-2023 Lactate [Moles/Vol] 2.9 mmol/L High 0.4-2.0 [facility] Comment on above: RESULTS CALLED TO RM SHARPE RN Bilirubin Ql (U) Negative NEGATIVE [facility] Glucose (U) [Mass/Vol] 500 mg/dL Abnormal [facility] Ketones Ql (U) Negative NEGATIVE [facility] pH (U) 6.5 [pH] 5.0-9.0 [facility] Specific gravity (U) [Rel density] 1.020 1.005-1.02 5 [facility] Urobilinogen Qn (U) 0.2 {Brendan'U}/dL 0.2-1.0 [facility] Albumin [Mass/Vol] 3.5 g/dL 3.4-5.0 [facility] ALP [Catalytic activity/Vol] 141 U/L High 46-116 [facility] ALT [Catalytic activity/Vol] 13 U/L Low 16-63 [facility] AST [Catalytic activity/Vol] 8 U/L Low 15-37 [facility] Bilirubin [Mass/Vol] 0.7 mg/dL 0.2-1.0 [facility] Calcium [Mass/Vol] 9.6 mg/dL 8.5-10.1 [facility] Chloride [Moles/Vol] 99 mmol/L 98-107 [facility] CO2 [Moles/Vol] 21.7 mmol/L 21.0-32.0 [facility] Creatinine [Mass/Vol] 2.17 mg/dL High 0.70-1.30 [facility] GFR/1.73 sq M.predicted MDRD (S/P/Bld) [Vol rate/Area] 38 mL/min/{1.73_m2} Low >=60 [facility] Glucose [Mass/Vol] 191 mg/dL High 74-106 [facility] Magnesium [Mass/Vol] 1.6 mg/dL Low 1.8-2.4 [facility] Potassium [Moles/Vol] 3.8 mmol/L 3.5-5.1 [facility] Protein [Mass/Vol] 8.1 g/dL 6.4-8.2 [facility] Sodium [Moles/Vol] 135 mmol/L Low 136-145 [facility] Urea nitrogen [Mass/Vol] 20.0 mg/dL High 7.0-18.0 [facility] Urea nitrogen/Creatinine [Mass ratio] 9.2 mg/mg [facility] Laboratory - Hematology and Cell countson 12-09-2023 Immature granulocytes/100 WBC (Bld) 0.3 % 0.0-0.5 [facility] Laboratory - Microbiology an d Antimicrobial susceptibilityon 12-09-2023 SARS-CoV-2 (COVID-19) RNA NELLY+probe Ql (Unsp spec) Negative NEGATIVE [facility] Comment on above: This test has not [...] inform ationon 12-09-2023 Appearance (U) CLEAR CLEAR [facility] Color (U) YELLOW YELLOW [facility] Laboratory - Urinalysison Leukocyte esterase Test strip Ql (U) Negative NEGATIVE [facility] Nitrite Ql (U) Negative NEGATIVE [facility] Protein Ql (U) Negative NEG/TRACE [facility] Leukocytes [#/volume] correc jorge for nucleated erythrocytes in Blood by Automated counon 12-09-2023 WBC corrected for nucl RBC Auto (Bld) [#/Vol] 9.3 10 3/uL 4.0-11.0 [facility] Lymphocytes Auto (Bld) [#/Vo l]on 12-09-2023 Lymphocytes (Bld) [#/Vol] 1.5 10 3/uL 1.2-3.8 [facility] Lymphocytes/100 WBC Auto (Bl d)on 12-09-2023 Lymphocytes/100 WBC (Bld) 15.7 % Low 20.5-60.0 [facility] MCH Auto (RBC) [Entitic mass ]on 12-09-2023 MCH (RBC) [Entitic mass] 25.6 pg Low 25.9-34.0 [facility] MCHC Auto (RBC) [Mass/Vol]on 12-09-2023 MCHC (RBC) [Mass/Vol] 31.1 g/dL 29.9-35.2 [facility] MCV Auto (RBC) [Entitic vol] on 12-09-2023 MCV (RBC) [Entitic vol] 82.4 fL 80.0-94.0 [facility] Monocytes Auto (Bld) [#/Vol] on 12-09-2023 Monocytes (Bld) [#/Vol] 0.9 10 3/uL High 0.3-0.8 [facility] Monocytes/100 WBC Auto (Bld) on 12-09-2023 Monocytes/100 WBC (Bld) 9.1 % 1.7-12.0 [facility] Neutrophils Auto (Bld) [#/Vo l]on 12-09-2023 Neutrophils (Bld) [#/Vol] 6.7 10 3/uL High 1.4-6.5 [facility] Neutrophils/100 WBC Auto (Bl d)on 12-09-2023 Neutrophils/100 WBC (Bld) 72.3 % 43.0-75.0 [facility] No Panel Informationon 12-08 Urine Microscopic Review NO [facility] Urine Occult Blood Negative NEGATIVE [facility] Eosinophils # (Auto) 0.2 10 3/uL 0.0-0.7 [facility] Immature Granulocyte # (Auto) 0.03 10 3/uL 0.00-0.03 [facility] Troponin I High Sensitivity 8.7 pg/mL 4.0-76.1 [facility] Comment on above: CUT-OFF POINTS HAVE BEEN [...] volume (Bld) [Entitic vol] 10.7 fL 9.5-13.5 [facility] Platelets Auto (Bld) [#/Vol] on 12-09-2023 Platelets (Bld) [#/Vol] 294 10 3/uL 150-450 [facility] RBC Auto (Bld) [#/Vol]on RBC (Bld) [#/Vol] 4.76 10 6/uL 4.70-6.10 [facility] Serum or plasma albumin/glob ulin mass ratioon 12-09-2023 Albumin/Globulin [Mass ratio] 0.8 {ratio} [facility] Serum or plasma anion gap de terminationon 12-09-2023 Anion gap [Moles/Vol] 18.1 mmol/L [facility] Outside Operativeon 11-28-19 24 Outside Operative [id number]#1.00TIFF Normal [facility] Physician Orderon 11-28-2023 Physician Order [id number]#1.00TIFF Normal [facility] Basophils Auto (Bld) [#/Vol] on 11-26-2023 Basophils (Bld) [#/Vol] 0.1 10 3/uL 0.0-0.1 [facility] Basophils/100 WBC Auto (Bld) on 11-26-2023 Basophils/100 WBC (Bld) 1.1 % 0.2-2.0 [facility] Eosinophils/100 WBC Auto (Bl d)on 11-26-2023 Eosinophils/100 WBC (Bld) 3.5 % 0.9-7.0 [facility] Erythrocyte distribution wid th Auto (RBC) [Ratio]on 11-26-2023 Erythrocyte distribution width (RBC) [Ratio] 20.0 % High 11.0-15.0 [facility] Estimated glomerular filtrat ion rate (GFR) non- Americanon 11-26-2023 GFR/1.73 sq M.predicted among non-blacks MDRD (S/P/Bld) [Vol rate/Area] 41 mL/min/{1.73_m2} Low >=60 [facility] Globulin Calc (S) [Mass/Vol] on 11-26-2023 Globulin (S) [Mass/Vol] 4.2 g/dL [facility] Hematocrit Auto (Bld) [Volum e fraction]on 11-26-2023 Hematocrit (Bld) [Volume fraction] 33.1 % Low 42.0-54.0 [facility] Hemoglobin [Mass/volume] in Bloodon 11-26-2023 Hemoglobin (Bld) [Mass/Vol] 9.8 g/dL Low 14.0-18.0 [facility] Laboratory - Chemistry and C hemistry - challengeon 11-26-2023 Albumin [Mass/Vol] 3.2 g/dL Low 3.4-5.0 [facility] ALP [Catalytic activity/Vol] 143 U/L High 46-116 [facility] ALT [Catalytic activity/Vol] 16 U/L 16-63 [facility] AST [Catalytic activity/Vol] 14 U/L Low 15-37 [facility] Bilirubin [Mass/Vol] 0.5 mg/dL 0.2-1.0 [facility] Calcium [Mass/Vol] 9.1 mg/dL 8.5-10.1 [facility] Chloride [Moles/Vol] 101 mmol/L 98-107 [facility] CO2 [Moles/Vol] 24.2 mmol/L 21.0-32.0 [facility] Creatinine [Mass/Vol] 1.72 mg/dL High 0.70-1.30 [facility] GFR/1.73 sq M.predicted MDRD (S/P/Bld) [Vol rate/Area] 50 mL/min/{1.73_m2} Low >=60 [facility] Glucose [Mass/Vol] 132 mg/dL High 74-106 [facility] Lactate [Moles/Vol] 3.6 mmol/L High 0.4-2.0 [facility] Comment on above: RESULTS CALLED TO DR CROOK/YASMIN Potassium [Moles/Vol] 3.7 mmol/L 3.5-5.1 [facility] Protein [Mass/Vol] 7.4 g/dL 6.4-8.2 [facility] Sodium [Moles/Vol] 138 mmol/L 136-145 [facility] Urea nitrogen [Mass/Vol] 26.0 mg/dL High 7.0-18.0 [facility] Urea nitrogen/Creatinine [Mass ratio] 15.1 mg/mg [facility] Laboratory - Hematology and Cell countson 11-26-2023 ESR (Bld) [Velocity] 96 mm/h High <=20 [facility] Immature granulocytes/100 WBC (Bld) 0.4 % 0.0-0.5 [facility] Leukocytes [#/volume] correc jorge for nucleated erythrocytes in Blood by Automated counon 11-26-2023 WBC corrected for nucl RBC Auto (Bld) [#/Vol] 9.1 10 3/uL 4.0-11.0 [facility] Lymphocytes Auto (Bld) [#/Vo l]on 11-26-2023 Lymphocytes (Bld) [#/Vol] 2.1 10 3/uL 1.2-3.8 [facility] Lymphocytes/100 WBC Auto (Bl d)on 11-26-2023 Lymphocytes/100 WBC (Bld) 23.4 % 20.5-60.0 [facility] MCH Auto (RBC) [Entitic mass ]on 11-26-2023 MCH (RBC) [Entitic mass] 24.8 pg Low 25.9-34.0 [facility] MCHC Auto (RBC) [Mass/Vol]on 11-26-2023 MCHC (RBC) [Mass/Vol] 29.6 g/dL Low 29.9-35.2 [facility] MCV Auto (RBC) [Entitic vol] on 11-26-2023 MCV (RBC) [Entitic vol] 83.8 fL 80.0-94.0 [facility] Monocytes Auto (Bld) [#/Vol] on 11-26-2023 Monocytes (Bld) [#/Vol] 0.8 10 3/uL 0.3-0.8 [facility] Monocytes/100 WBC Auto (Bld) on 11-26-2023 Monocytes/100 WBC (Bld) 8.5 % 1.7-12.0 [facility] Neutrophils Auto (Bld) [#/Vo l]on 11-26-2023 Neutrophils (Bld) [#/Vol] 5.7 10 3/uL 1.4-6.5 [facility] Neutrophils/100 WBC Auto (Bl d)on 11-26-2023 Neutrophils/100 WBC (Bld) 63.1 % 43.0-75.0 [facility] No Panel InformationOrdered By: HERNAN RCOOK on 11-26-2023 Blood Culture 2 [facility] Blood Culture 1 [facility] No Panel Informationon 11-25 C-Reactive Protein, Quantitative <0.50 mg/dL <=0.50 [facility] Eosinophils # (Auto) 0.3 10 3/uL 0.0-0.7 [facility] Immature Granulocyte # (Auto) 0.04 10 3/uL High 0.00-0.03 [facility] Platelet mean volume Auto (B ld) [Entitic vol]on 11-26-2023 Platelet mean volume (Bld) [Entitic vol] 10.4 fL 9.5-13.5 [facility] Platelets Auto (Bld) [#/Vol] on 11-26-2023 Platelets (Bld) [#/Vol] 371 10 3/uL 150-450 [facility] RBC Auto (Bld) [#/Vol]on RBC (Bld) [#/Vol] 3.95 10 6/uL Low 4.70-6.10 [facility] Serum or plasma albumin/glob ulin mass ratioon 11-26-2023 Albumin/Globulin [Mass ratio] 0.8 {ratio} [facility] Serum or plasma anion gap de terminationon 11-26-2023 Anion gap [Moles/Vol] 16.5 mmol/L [facility] Progress Note-Physicianon Progress Note-Physician [id number]#1.00TIFF Normal [facility] Basophils Auto (Bld) [#/Vol] on 11-15-2023 Basophils (Bld) [#/Vol] 0.1 10 3/uL 0.0-0.1 [facility] Basophils/100 WBC Auto (Bld) on 11-15-2023 Basophils/100 WBC (Bld) 0.8 % 0.2-2.0 [facility] Eosinophils/100 WBC Auto (Bl d)on 11-15-2023 Eosinophils/100 WBC (Bld) 5.9 % 0.9-7.0 [facility] Erythrocyte distribution wid th Auto (RBC) [Ratio]on 11-15-2023 Erythrocyte distribution width (RBC) [Ratio] 20.6 % High 11.0-15.0 [facility] Estimated glomerular filtrat ion rate (GFR) non- Americanon 11-15-2023 GFR/1.73 sq M.predicted among non-blacks MDRD (S/P/Bld) [Vol rate/Area] 44 mL/min/{1.73_m2} Low >=60 [facility] Globulin Calc (S) [Mass/Vol] on 11-15-2023 Globulin (S) [Mass/Vol] 4.7 g/dL [facility] Hematocrit Auto (Bld) [Volum e fraction]on 11-15-2023 Hematocrit (Bld) [Volume fraction] 27.6 % Low 42.0-54.0 [facility] Hemoglobin [Mass/volume] in Bloodon 11-15-2023 Hemoglobin (Bld) [Mass/Vol] 8.5 g/dL Low 14.0-18.0 [facility] Laboratory - Chemistry and C hemistry - challengeon 11-15-2023 Albumin [Mass/Vol] 2.4 g/dL Low 3.4-5.0 [facility] ALP [Catalytic activity/Vol] 194 U/L High 46-116 [facility] ALT [Catalytic activity/Vol] 22 U/L 16-63 [facility] AST [Catalytic activity/Vol] 25 U/L 15-37 [facility] Bilirubin [Mass/Vol] 0.9 mg/dL 0.2-1.0 [facility] Calcium [Mass/Vol] 8.9 mg/dL 8.5-10.1 [facility] Chloride [Moles/Vol] 97 mmol/L Low 98-107 [facility] CO2 [Moles/Vol] 26.6 mmol/L 21.0-32.0 [facility] Creatinine [Mass/Vol] 1.63 mg/dL High 0.70-1.30 [facility] GFR/1.73 sq M.predicted MDRD (S/P/Bld) [Vol rate/Area] 53 mL/min/{1.73_m2} Low >=60 [facility] Glucose [Mass/Vol] 226 mg/dL High 74-106 [facility] Lactate [Moles/Vol] 1.4 mmol/L 0.4-2.0 [facility] Potassium [Moles/Vol] 4.1 mmol/L 3.5-5.1 [facility] Protein [Mass/Vol] 7.1 g/dL 6.4-8.2 [facility] Sodium [Moles/Vol] 135 mmol/L Low 136-145 [facility] Urea nitrogen [Mass/Vol] 24.0 mg/dL High 7.0-18.0 [facility] Urea nitrogen/Creatinine [Mass ratio] 14.7 mg/mg [facility] Laboratory - Hematology and Cell countson 11-15-2023 Immature granulocytes/100 WBC (Bld) 0.6 % High 0.0-0.5 [facility] Leukocytes [#/volume] correc jorge for nucleated erythrocytes in Blood by Automated counon 11-15-2023 WBC corrected for nucl RBC Auto (Bld) [#/Vol] 9.5 10 3/uL 4.0-11.0 [facility] Lymphocytes Auto (Bld) [#/Vo l]on 11-15-2023 Lymphocytes (Bld) [#/Vol] 1.3 10 3/uL 1.2-3.8 [facility] Lymphocytes/100 WBC Auto (Bl d)on 11-15-2023 Lymphocytes/100 WBC (Bld) 14.1 % Low 20.5-60.0 [facility] MCH Auto (RBC) [Entitic mass ]on 11-15-2023 MCH (RBC) [Entitic mass] 24.9 pg Low 25.9-34.0 [facility] MCHC Auto (RBC) [Mass/Vol]on 11-15-2023 MCHC (RBC) [Mass/Vol] 30.8 g/dL 29.9-35.2 [facility] MCV Auto (RBC) [Entitic vol] on 11-15-2023 MCV (RBC) [Entitic vol] 80.9 fL 80.0-94.0 [facility] Monocytes Auto (Bld) [#/Vol] on 11-15-2023 Monocytes (Bld) [#/Vol] 1.1 10 3/uL High 0.3-0.8 [facility] Monocytes/100 WBC Auto (Bld) on 11-15-2023 Monocytes/100 WBC (Bld) 11.9 % 1.7-12.0 [facility] Neutrophils Auto (Bld) [#/Vo l]on 11-15-2023 Neutrophils (Bld) [#/Vol] 6.4 10 3/uL 1.4-6.5 [facility] Neutrophils/100 WBC Auto (Bl d)on 11-15-2023 Neutrophils/100 WBC (Bld) 66.7 % 43.0-75.0 [facility] No Panel InformationOrdered By: Fely Marker on 11-15-2023 Blood Culture 2 [facility] Blood Culture 1 [facility] No Panel Informationon 11-14 Eosinophils # (Auto) 0.6 10 3/uL 0.0-0.7 [facility] Immature Granulocyte # (Auto) 0.06 10 3/uL High 0.00-0.03 [facility] Platelet mean volume Auto (B ld) [Entitic vol]on 11-15-2023 Platelet mean volume (Bld) [Entitic vol] 10.8 fL 9.5-13.5 [facility] Platelets Auto (Bld) [#/Vol] on 11-15-2023 Platelets (Bld) [#/Vol] 338 10 3/uL 150-450 [facility] RBC Auto (Bld) [#/Vol]on RBC (Bld) [#/Vol] 3.41 10 6/uL Low 4.70-6.10 [facility] Serum or plasma albumin/glob ulin mass ratioon 11-15-2023 Albumin/Globulin [Mass ratio] 0.5 {ratio} [facility] Serum or plasma anion gap de terminationon 11-15-2023 Anion gap [Moles/Vol] 15.5 mmol/L [facility] BASIC METABOLIC PANLon 11-13 Anion gap [Moles/Vol] 10 mmol/L Normal 5-15 [facility] Comment on above: Performed By: #### C ALLY [facility], , 2776-06 ####[facility] ([id number])[address], [address], [place] [address] Calcium [Mass/Vol] 8.8 mg/dL Normal 8.5-10.5 [facility] Comment on above: Performed By: #### C KENDALL CANALES, , 2776-06 ####[facility] ([id number])[address], [place] [address] Chloride [Moles/Vol] 99 mmol/L Normal 98-109 [facility] Comment on above: Performed By: #### C KENDALL CANALES, , 2776-06 ####[facility] ([id number])[address], [address], [place] [address] CO2 [Moles/Vol] 26 mmol/L Normal 22-32 [facility] Comment on above: Performed By: #### C ALLY [facility], , 2776-06 ####[facility] ([id number])[address] [address], [place] [address] Creatinine [Mass/Vol] 1.61 mg/dL High 0.60-1.30 [facility] Comment on above: Result Comment: METH OD TRACEABLE TO IDMS STANDARD Performed By: #### C KENDALL CANALES, , 2776-06 ####[facility] ([id number])[address] [address] [place] [address] GFR/1.73 sq M.predicted among non-blacks MDRD (S/P/Bld) [Vol rate/Area] 49 mL/min/{1.73_m2} Low >59 [facility] Comment on above: Result Comment: Reported eGFR is based on the CKD-EPI 2020 equation that does not use a race coefficient. Performed By: #### C KENDALL CANALES, , 2776-06 ####[facility] ([id number])[address] [address] [place] [address] Glucose [Mass/Vol] 184 mg/dL High 65-99 [facility] Comment on above: Performed By: #### C KENDALL CANALES, , 2776-06 ####[facility] ([id number])[address] [address], [place] [address] Potassium [Moles/Vol] 4.0 mmol/L Normal 3.5-5.0 [facility] Comment on above: Performed By: #### C KENDALL CANALES, , 2776-06 ####[facility] ([id number])[address] [address], [place] [address] Sodium [Moles/Vol] 135 mmol/L Normal 134-146 [facility] Comment on above: Performed By: #### C KENDALL CANALES, , 2776-06 ####[facility] ([id number])[address], [address] [place] [address] Urea nitrogen [Mass/Vol] 23 mg/dL Normal 5-23 [facility] Comment on above: Performed By: #### C ALLY, [facility], , 2776-06 ####[facility] ([id number])[address], [address], [place] [address] COMPLETE BLOOD COUNTon 11-13 Erythrocyte distribution width (RBC) [Ratio] 22.8 % High 11.5-15.0 [facility] Comment on above: Performed By: #### C ALLY, [facility], , 2776-06 ####[facility] ([id number])[address] [address], [place] [address] Hematocrit (Bld) [Volume fraction] 25.1 % Low 39-49 [facility] Comment on above: Performed By: #### C ALLY, [facility], , 2776-06 ####[facility] ([id number])[address] [address] [place] [address] Hemoglobin (Bld) [Mass/Vol] 8.1 g/dL Low 13.0-17.0 [facility] Comment on above: Performed By: #### Snehal CANALES, [facility], , 2776-06 ####[facility] ([id number])[address] [address] [place] [address] MCH (RBC) [Entitic mass] 25.1 pg Low 27-34 [facility] Comment on above: Performed By: #### Snehal BC, [facility], , 2776-06 ####[facility] ([id number])[address], [address] [place] [address] MCHC (RBC) [Mass/Vol] 32.4 g/dL Normal 32-36 [facility] Comment on above: Performed By: #### C ALLY, [facility], , 2776-06 ####[facility] ([id number])[address], [address], [place] [address] MCV (RBC) [Entitic vol] 77 fL Low 80-100 [facility] Comment on above: Performed By: #### Snehal CANALES [facility], , 2776-06 ####[facility] ([id number])[address], [address] [place] [address] Platelet mean volume (Bld) [Entitic vol] 8.8 fL Normal 7-12 [facility] Comment on above: Performed By: #### Snehal CANALES, [facility], , 2776-06 ####[facility] ([id number])[address], [address], [place] [address] Platelets (Bld) [#/Vol] 232 10*3/uL Normal 150-450 [facility] Comment on above: Performed By: #### Snehal CANALES [facility], , 2776-06 ####[facility] ([id number])[address], [address], [place] [address] RBC COUNT 3.25 X10E12/L Low 4.10-5.70 [facility] Comment on above: Performed By: #### Snehal CANALES [facility], , 2776-06 ####[facility] ([id number])[address], [address] [place] [address] WBC (Bld) [#/Vol] 8.4 10*3/uL Normal 4.0-11.0 [facility] Comment on above: Performed By: #### Snehal CANALES, BMP, , 2776-06 ####[facility] ([id number])[address], [address], [place] [address] Glucose Glucometer (BldC) [M ass/Vol]on 11-14-2023 Glucose [Mass/Vol] 173 mg/dL High 65-99 [facility] Glucose [Mass/Vol] 279 mg/dL High 65-99 [facility] Glucose [Mass/Vol] 249 mg/dL High 65-99 [facility] MAGNESIUMon 11-14-2023 Magnesium [Mass/Vol] 2.1 mg/dL Normal 1.8-2.6 [facility] Comment on above: Performed By: #### 1 9123-9 ####[facility] ([id number])[address], [address] [place] [address] Magnesium [Mass/Vol] mg/dL Critically low 1.8-2.6 [facility] Comment on above: Performed By: #### 1 9123-9 ####[facility] ([id number])[address], [address] [place] [address] Magnesium [Mass/Vol] 1.7 mg/dL Low 1.8-2.6 [facility] Comment on above: Performed By: #### C KENDALL CANALES, , 2777-1 ####[facility] ([id number])[address], [address], [place] [address] PHOSPHORUSon 11-14-2023 Phosphate [Mass/Vol] 3.6 mg/dL Normal 2.4-4.9 [facility] Comment on above: Performed By: #### C KENDALL CANALES, , 7-1 ####[facility] ([id number])[address], [address], [place] [address] BASIC METABOLIC PANLon 11-12 Anion gap [Moles/Vol] 10 mmol/L Normal 5-15 [facility] Comment on above: Performed By: #### C KENDALL CANALES, , 2777-1 ####[facility] ([id number])[address], [address], [place] [address] Calcium [Mass/Vol] 8.9 mg/dL Normal 8.5-10.5 [facility] Comment on above: Performed By: #### C KENDALL CANALES, , 2776-06 ####[facility] ([id number])[address], [address], [place] [address] Chloride [Moles/Vol] 98 mmol/L Normal 98-109 [facility] Comment on above: Performed By: #### Snehal CANALES, [facility], , 2776-06 ####[facility] ([id number])[address], [address] [address] CO2 [Moles/Vol] 27 mmol/L Normal 22-32 [facility] Comment on above: Performed By: #### KENDALL AHUJA, , 2776-06 ####[facility] ([id number])[address], [address] [place] [address] Creatinine [Mass/Vol] 1.47 mg/dL High 0.60-1.30 [facility] Comment on above: Result Comment: METH OD TRACEABLE TO IDMS STANDARD Performed By: #### KENDALL AHUJA, , 2776-06 ####[facility] ([id number])[address] [address] GFR/1.73 sq M.predicted among non-blacks MDRD (S/P/Bld) [Vol rate/Area] 55 mL/min/{1.73_m2} Low >59 [facility] Comment on above: Result Comment: Reported eGFR is based on the CKD-EPI 2020 equation that does not use a race coefficient. Performed By: #### KENDALL AHUJA, , 2776-06 ####[facility] ([id number])[address] [address] [address] Glucose [Mass/Vol] 164 mg/dL High 65-99 [facility] Comment on above: Performed By: #### C ALLY, [facility], , 2776-06 ####[facility] ([id number])[address], [address], [place] [address] Potassium [Moles/Vol] 3.8 mmol/L Normal 3.5-5.0 [facility] Comment on above: Performed By: #### Snehal CANALES, [facility], , 2776-06 ####[facility] ([id number])[address], [address], [place] [address] Sodium [Moles/Vol] 135 mmol/L Normal 134-146 [facility] Comment on above: Performed By: #### Snehal CANALES, [facility], , 2776-06 ####[facility] ([id number])[address], [address], [place] [address] Urea nitrogen [Mass/Vol] 26 mg/dL High 5-23 [facility] Comment on above: Performed By: #### Snehal CANALES, [facility], , 2776-06 ####[facility] ([id number])[address], [address], [place] [address] COMPLETE BLOOD COUNTon 11-12 Erythrocyte distribution width (RBC) [Ratio] 23.2 % High 11.5-15.0 [facility] Comment on above: Performed By: #### Snehal CANALES, [facility], , 2776-06 ####[facility] ([id number])[address] [address], [place] [address] Hematocrit (Bld) [Volume fraction] 24.7 % Low 39-49 [facility] Comment on above: Performed By: #### Snehal CANALES, BMP, , 2776-06 ####[facility] ([id number])[address], [address], [place] [address] Hemoglobin (Bld) [Mass/Vol] 8.2 g/dL Low 13.0-17.0 [facility] Comment on above: Performed By: #### C ALLY, [facility], , 2776-06 ####[facility] ([id number])[address], [address], [place] [address] MCH (RBC) [Entitic mass] 25.7 pg Low 27-34 [facility] Comment on above: Performed By: #### Snehal CANALES, [facility], , 2776-06 ####[facility] ([id number])[address], [address], [place] [address] MCHC (RBC) [Mass/Vol] 33.4 g/dL Normal 32-36 [facility] Comment on above: Performed By: #### KENDALL AHUJA, , 2776-06 ####[facility] ([id number])[address], [address], [place] [address] MCV (RBC) [Entitic vol] 77 fL Low 80-100 [facility] Comment on above: Performed By: #### Snehal CANALES [facility], , 2776-06 ####[facility] ([id number])[address], [address], [place] [address] Platelet mean volume (Bld) [Entitic vol] 8.8 fL Normal 7-12 [facility] Comment on above: Performed By: #### Snehal CANALES, BMP, , 2776-06 ####[facility] ([id number])[address], [address], [place] [address] Platelets (Bld) [#/Vol] 207 10*3/uL Normal 150-450 [facility] Comment on above: Performed By: #### Snehal CANALES, BMP, , 2776-06 ####[facility] ([id number])[address], [address], [place] [address] RBC COUNT 3.21 X10E12/L Low 4.10-5.70 [facility] Comment on above: Performed By: #### KENDALL AHUJA, , 2776-06 ####[facility] ([id number])[address], [address] [place] [address] WBC (Bld) [#/Vol] 8.1 10*3/uL Normal 4.0-11.0 [facility] Comment on above: Performed By: #### KENDALL AHUJA, , 2776-06 ####[facility] ([id number])[address], [address] [place] [address] Glucose Glucometer (BldC) [M ass/Vol]on 11-13-2023 Glucose [Mass/Vol] 230 mg/dL High 65-99 [facility] Glucose [Mass/Vol] 225 mg/dL High 65-99 [facility] Glucose [Mass/Vol] 331 mg/dL High 65-99 [facility] Glucose [Mass/Vol] 190 mg/dL High 65-99 [facility] MAGNESIUMon 11-13-2023 Magnesium [Mass/Vol] 2.1 mg/dL Normal 1.8-2.6 [facility] Comment on above: Performed By: #### KENDALL AHUJA, , 2776-06 ####[facility] ([id number])[address], [address] [place] [address] PHOSPHORUSon 11-13-2023 Phosphate [Mass/Vol] 3.8 mg/dL Normal 2.4-4.9 [facility] Comment on above: Performed By: #### KENDALL AHUJA, , 2776-06 ####[facility] ([id number])[address], [address] [place] [address] BASIC METABOLIC PANLon 11-11 Anion gap [Moles/Vol] 11 mmol/L Normal 5-15 [facility] Comment on above: Performed By: #### C ALLY, BMP #### [facility] ([id number]) [address], [address] [place] [address] Calcium [Mass/Vol] 9.0 mg/dL Normal 8.5-10.5 [facility] Comment on above: Performed By: #### C ALLY, BMP #### [facility] ([id number]) [address], [address] [place] [address] Chloride [Moles/Vol] 98 mmol/L Normal 98-109 [facility] Comment on above: Performed By: #### C ALLY, BMP #### [facility] ([id number]) [address], [address] [place] [address] CO2 [Moles/Vol] 25 mmol/L Normal 22-32 [facility] Comment on above: Performed By: #### C ALLY, BMP #### [facility] ([id number]) [address], [address] [place] [address] Creatinine [Mass/Vol] 1.40 mg/dL High 0.60-1.30 [facility] Comment on above: Result Comment: METH OD TRACEABLE TO IDMS STANDARD Performed By: #### C ALLY, BMP #### [facility] ([id number]) [address], [address] [place] [address] GFR/1.73 sq M.predicted among non-blacks MDRD (S/P/Bld) [Vol rate/Area] 58 mL/min/{1.73_m2} Low >59 [facility] Comment on above: Result Comment: Reported eGFR is based on the CKD-EPI 2020 equation that does not use a race coefficient. Performed By: #### C ALLY, BMP #### [facility] ([id number]) [address], [address] [place] [address] Glucose [Mass/Vol] 194 mg/dL High 65-99 [facility] Comment on above: Performed By: #### C ALLY, BMP #### [facility] ([id number]) [address] [address] [place] [address] Potassium [Moles/Vol] 4.0 mmol/L Normal 3.5-5.0 [facility] Comment on above: Performed By: #### C ALLY, BMP #### [facility] ([id number]) [address], [address] [place] [address] Sodium [Moles/Vol] 134 mmol/L Normal 134-146 [facility] Comment on above: Performed By: #### C ALLY, BMP #### [facility] ([id number]) [address] [address] [place] [address] Urea nitrogen [Mass/Vol] 23 mg/dL Normal 5-23 [facility] Comment on above: Performed By: #### C ALLY, BMP #### [facility] ([id number]) [address], [address] [place] [address] COMPLETE BLOOD COUNTon 11-11 Erythrocyte distribution width (RBC) [Ratio] 24.1 % High 11.5-15.0 [facility] Comment on above: Performed By: #### C ALLY, BMP #### [facility] ([id number]) [address], [address] [place] [address] Hematocrit (Bld) [Volume fraction] 25.8 % Low 39-49 [facility] Comment on above: Performed By: #### C ALLY, BMP #### [facility] ([id number]) [address] [address] [place] [address] Hemoglobin (Bld) [Mass/Vol] 8.6 g/dL Low 13.0-17.0 [facility] Comment on above: Performed By: #### C ALLY, BMP #### [facility] ([id number]) [address] [address] [place] [address] MCH (RBC) [Entitic mass] 25.7 pg Low 27-34 [facility] Comment on above: Performed By: #### Snehal CANALES, BMP #### [facility] ([id number]) [address], [address] [place] [address] MCHC (RBC) [Mass/Vol] 33.5 g/dL Normal 32-36 [facility] Comment on above: Performed By: #### Snehal CANALES, BMP #### [facility] ([id number]) [address], [address] [place] [address] MCV (RBC) [Entitic vol] 77 fL Low 80-100 [facility] Comment on above: Performed By: #### Snehal CANALES, BMP #### [facility] ([id number]) [address], [address] [place] [address] Platelet mean volume (Bld) [Entitic vol] 9.2 fL Normal 7-12 [facility] Comment on above: Performed By: #### Snehal CANALES, BMP #### [facility] ([id number]) [address], [address] [place] [address] Platelets (Bld) [#/Vol] 185 10*3/uL Normal 150-450 [facility] Comment on above: Performed By: #### Snehal CANALES, BMP #### [facility] ([id number]) [address], [address] [place] [address] RBC COUNT 3.37 X10E12/L Low 4.10-5.70 [facility] Comment on above: Performed By: #### Snehal CANALES, BMP #### [facility] ([id number]) [address], [address] [place] [address] WBC (Bld) [#/Vol] 10.0 10*3/uL Normal 4.0-11.0 [facility] Comment on above: Performed By: #### Snehal CANALES, BMP #### [facility] ([id number]) [address], [address] [place] [address] Glucose Glucometer (BldC) [M ass/Vol]on 11-12-2023 Glucose [Mass/Vol] 230 mg/dL High 65-99 [facility] Glucose [Mass/Vol] 280 mg/dL High 65-99 [facility] Glucose [Mass/Vol] 268 mg/dL High 65-99 [facility] Glucose [Mass/Vol] 220 mg/dL High 65-99 [facility] Glucose [Mass/Vol] 205 mg/dL High 65-99 [facility] MAGNESIUMon 11-12-2023 Magnesium [Mass/Vol] 1.8 mg/dL Normal 1.8-2.6 [facility] Comment on above: Performed By: #### Snehal CANALES, BMP #### [facility] ([id number]) [address] [place] [address] PHOSPHORUSon 11-12-2023 Phosphate [Mass/Vol] 3.8 mg/dL Normal 2.4-4.9 [facility] Comment on above: Performed By: #### Snehal CANALES, BMP #### [facility] ([id number]) [address], [address] [place] [address] BASIC METABOLIC PANLon 11-10 Anion gap [Moles/Vol] 8 mmol/L Normal 5-15 [facility] Comment on above: Performed By: #### Snehal CANALES, BMP #### [facility] ([id number]) [address], [address] [place] [address] Calcium [Mass/Vol] 8.7 mg/dL Normal 8.5-10.5 [facility] Comment on above: Performed By: #### Snehal CANALES, BMP #### [facility] ([id number]) [address], [address] [place] [address] Chloride [Moles/Vol] 99 mmol/L Normal 98-109 [facility] Comment on above: Performed By: #### C ALLY, BMP #### [facility] ([id number]) [address], [address] [place] [address] CO2 [Moles/Vol] 26 mmol/L Normal 22-32 [facility] Comment on above: Performed By: #### C ALLY, BMP #### [facility] ([id number]) [address] [place] [address] Creatinine [Mass/Vol] 1.45 mg/dL High 0.60-1.30 [facility] Comment on above: Result Comment: METH OD TRACEABLE TO IDMS STANDARD Performed By: #### C ALLY, BMP #### [facility] ([id number]) [address] [place] [address] GFR/1.73 sq M.predicted among non-blacks MDRD (S/P/Bld) [Vol rate/Area] 56 mL/min/{1.73_m2} Low >59 [facility] Comment on above: Result Comment: Reported eGFR is based on the CKD-EPI 2020 equation that does not use a race coefficient. Performed By: #### Snehal CANALES, BMP #### [facility] ([id number]) [address], [address] [place] [address] Glucose [Mass/Vol] 153 mg/dL High 65-99 [facility] Comment on above: Performed By: #### C ALLY, BMP #### [facility] ([id number]) [address], [address] [place] [address] Potassium [Moles/Vol] 3.9 mmol/L Normal 3.5-5.0 [facility] Comment on above: Performed By: #### C ALLY, BMP #### [facility] ([id number]) [address] [place] [address] Sodium [Moles/Vol] 133 mmol/L Low 134-146 [facility] Comment on above: Performed By: #### C ALLY, BMP #### [facility] ([id number]) [address], [address] [place] [address] Urea nitrogen [Mass/Vol] 27 mg/dL High 5-23 [facility] Comment on above: Performed By: #### C ALLY, BMP #### [facility] ([id number]) [address], [address] [place] [address] COMPLETE BLOOD COUNTon 11-10 Erythrocyte distribution width (RBC) [Ratio] 24.2 % High 11.5-15.0 [facility] Comment on above: Performed By: #### C ALLY, BMP #### [facility] ([id number]) [address], [address] [place] [address] Hematocrit (Bld) [Volume fraction] 25.1 % Low 39-49 [facility] Comment on above: Performed By: #### C ALLY, BMP #### [facility] ([id number]) [address], [address] [place] [address] Hemoglobin (Bld) [Mass/Vol] 8.2 g/dL Low 13.0-17.0 [facility] Comment on above: Performed By: #### C ALLY, BMP #### [facility] ([id number]) [address], [address] [place] [address] MCH (RBC) [Entitic mass] 25.5 pg Low 27-34 [facility] Comment on above: Performed By: #### C ALLY, BMP #### [facility] ([id number]) [address], [address] [place] [address] MCHC (RBC) [Mass/Vol] 32.7 g/dL Normal 32-36 [facility] Comment on above: Performed By: #### C ALLY, BMP #### [facility] ([id number]) [address], [address] [place] [address] MCV (RBC) [Entitic vol] 78 fL Low 80-100 [facility] Comment on above: Performed By: #### Snehal CANALES, BMP #### [facility] ([id number]) [address], [address] [place] [address] Platelet mean volume (Bld) [Entitic vol] 9.0 fL Normal 7-12 [facility] Comment on above: Performed By: #### Snehal CANALES, BMP #### [facility] ([id number]) [address] [place] [address] Platelets (Bld) [#/Vol] 152 10*3/uL Normal 150-450 [facility] Comment on above: Performed By: #### Snehal CANALES, BMP #### [facility] ([id number]) [address], [address] [place] [address] RBC COUNT 3.22 X10E12/L Low 4.10-5.70 [facility] Comment on above: Performed By: #### Snehal CANALES, BMP #### [facility] ([id number]) [address], [address] [place] [address] WBC (Bld) [#/Vol] 9.8 10*3/uL Normal 4.0-11.0 [facility] Comment on above: Performed By: #### Snehal CANALES, BMP #### [facility] ([id number]) [address], [address] [place] [address] Glucose Glucometer (dC) [M ass/Vol]on 11-11-2023 Glucose [Mass/Vol] 184 mg/dL High 65-99 [facility] Glucose [Mass/Vol] 179 mg/dL High 65-99 [facility] Glucose [Mass/Vol] 222 mg/dL High 65-99 [facility] Glucose [Mass/Vol] 303 mg/dL High 65-99 [facility] MAGNESIUMon 11-11-2023 Magnesium [Mass/Vol] 2.4 mg/dL Normal 1.8-2.6 [facility] Comment on above: Performed By: #### Snehal CANALES, BMP #### [facility] ([id number]) [address] [place] [address] Magnesium [Mass/Vol] 1.9 mg/dL Normal 1.8-2.6 [facility] Comment on above: Performed By: #### Snehal CANALES, BMP #### [facility] ([id number]) [address], [address] [place] [address] PHOSPHORUSon 11-11-2023 Phosphate [Mass/Vol] 3.2 mg/dL Normal 2.4-4.9 [facility] Comment on above: Performed By: #### Snehal CANALES BMP #### [facility] ([id number]) [address] [place] [address] BASIC METABOLIC PANLon 11-09 Anion gap [Moles/Vol] 6 mmol/L Normal 5-15 [facility] Comment on above: Performed By: #### KENDALL AHUJA, , 7-1 ####[facility] ([id number])[address] [place] [address] Calcium [Mass/Vol] 8.5 mg/dL Normal 8.5-10.5 [facility] Comment on above: Performed By: #### KENDALL AHUJA, , 7-1 ####[facility] ([id number])[address] [place] [address] Chloride [Moles/Vol] 102 mmol/L Normal 98-109 [facility] Comment on above: Performed By: #### KENDALL AHUJA, , 2777- ####[facility] ([id number])[address] [address] [place] [address] CO2 [Moles/Vol] 26 mmol/L Normal 22-32 [facility] Comment on above: Performed By: #### KENDALL AHUJA, , 2776-06 ####[facility] ([id number])[address] [address], [place] [address] Creatinine [Mass/Vol] 1.59 mg/dL High 0.60-1.30 [facility] Comment on above: Result Comment: METH OD TRACEABLE TO IDMS STANDARD Performed By: #### C KENDALL CANALES, , 2776-06 ####[facility] ([id number])[address] [address], [place] [address] GFR/1.73 sq M.predicted among non-blacks MDRD (S/P/Bld) [Vol rate/Area] 50 mL/min/{1.73_m2} Low >59 [facility] Comment on above: Result Comment: Reported eGFR is based on the CKD-EPI 2020 equation that does not use a race coefficient. Performed By: #### KENDALL AHUJA, , 2776-06 ####[facility] ([id number])[address] [address] [place] [address] Glucose [Mass/Vol] 145 mg/dL High 65-99 [facility] Comment on above: Performed By: #### KENDALL AHUJA, , 2776-06 ####[facility] ([id number])[address] [address] [place] [address] Potassium [Moles/Vol] 3.9 mmol/L Normal 3.5-5.0 [facility] Comment on above: Performed By: #### KENDALL AHUJA, , 2776-06 ####[facility] ([id number])[address] [address], [place] [address] Sodium [Moles/Vol] 134 mmol/L Normal 134-146 [facility] Comment on above: Performed By: #### C BC, [facility], , 2776-06 ####[facility] ([id number])[address] [address] [place] [address] Urea nitrogen [Mass/Vol] 23 mg/dL Normal 5-23 [facility] Comment on above: Performed By: #### C BC, [facility], , 2776-06 ####[facility] ([id number])[address] [address] COMPLETE BLOOD COUNTon 11-09 Erythrocyte distribution width (RBC) [Ratio] 24.9 % High 11.5-15.0 [facility] Comment on above: Performed By: #### Snehal CANALES, [facility], , 2776-06 ####[facility] ([id number])[address] [address] Hematocrit (Bld) [Volume fraction] 24.5 % Low 39-49 [facility] Comment on above: Performed By: #### Snehal CANALES, [facility], , 2776-06 ####[facility] ([id number])[address] [address] Hemoglobin (Bld) [Mass/Vol] 7.9 g/dL Low 13.0-17.0 [facility] Comment on above: Performed By: #### Snehal BC, BMP, , 2776-06 ####[facility] ([id number])[address] [address] MCH (RBC) [Entitic mass] 25.4 pg Low 27-34 [facility] Comment on above: Performed By: #### C BC, BMP, , 2776-06 ####[facility] ([id number])[address] [address] MCHC (RBC) [Mass/Vol] 32.4 g/dL Normal 32-36 [facility] Comment on above: Performed By: #### KENDALL AHUJA, , 2776-06 ####[facility] ([id number])[address] [address], [place] [address] MCV (RBC) [Entitic vol] 78 fL Low 80-100 [facility] Comment on above: Performed By: #### KENDALL AHUJA, , 2776-06 ####[facility] ([id number])[address] [address] Platelet mean volume (Bld) [Entitic vol] 9.1 fL Normal 7-12 [facility] Comment on above: Performed By: #### KENDALL AHUJA, , 2776-06 ####[facility] ([id number])[address] [address] [place] [address] Platelets (Bld) [#/Vol] 142 10*3/uL Low 150-450 [facility] Comment on above: Performed By: #### KENDALL AHUJA, , 2776-06 ####[facility] ([id number])[address] [address] [address] RBC COUNT 3.14 X10E12/L Low 4.10-5.70 [facility] Comment on above: Performed By: #### KENDALL AHUJA, , 2776-06 ####[facility] ([id number])[address] [place] [address] WBC (Bld) [#/Vol] 9.7 10*3/uL Normal 4.0-11.0 [facility] Comment on above: Performed By: #### KENDALL AHUJA, , 2776-06 ####[facility] ([id number])[address] [address] Glucose Glucometer (BldC) [M ass/Vol]on 11-10-2023 Glucose [Mass/Vol] 168 mg/dL High 65-99 [facility] Glucose [Mass/Vol] 245 mg/dL High 65-99 [facility] Glucose [Mass/Vol] 155 mg/dL High 65-99 [facility] Glucose [Mass/Vol] 153 mg/dL High 65-99 [facility] MAGNESIUMon 11-10-2023 Magnesium [Mass/Vol] 2.2 mg/dL Normal 1.8-2.6 [facility] Comment on above: Performed By: #### Snehal CANALES, BMP #### [facility] ([id number]) [address], [address] [place] [address] Magnesium [Mass/Vol] 1.8 mg/dL Normal 1.8-2.6 [facility] Comment on above: Performed By: #### Snehal CANALES, KENDALL, , 1 ####[facility] ([id number])[address] [address] PHOSPHORUSon 11-10-2023 Phosphate [Mass/Vol] 3.1 mg/dL Normal 2.4-4.9 [facility] Comment on above: Performed By: #### Snehal CANALES, KENDALL, , 1 ####[facility] ([id number])[address], [place] [address] BASIC METABOLIC PANLon 11-08 Anion gap [Moles/Vol] 9 mmol/L Normal 5-15 [facility] Comment on above: Performed By: #### Snehal CANALES, 2639-3, BMP, 2156-6, , 2776-1 ####[facility] ([id number])[address] [place] [address], [place] [address] Calcium [Mass/Vol] 8.4 mg/dL Low 8.5-10.5 [facility] Comment on above: Performed By: #### C BC, 2639-3, BMP, 2156-6, , 2776- ####[facility] ([id number])[address], [address] [place] [address] Chloride [Moles/Vol] 104 mmol/L Normal 98-109 [facility] Comment on above: Performed By: #### C BC, 2639-3, BMP, 2156-6, , 2776- ####[facility] ([id number])[address], [address] [place] [address] CO2 [Moles/Vol] 25 mmol/L Normal 22-32 [facility] Comment on above: Performed By: #### C BC, 2639-3, BMP, 2156-6, , 1 ####[facility] ([id number])[address], [address] [place] [address] Creatinine [Mass/Vol] 1.35 mg/dL High 0.60-1.30 [facility] Comment on above: Result Comment: METH OD TRACEABLE TO IDMS STANDARD Performed By: #### C BC, 2639-3, BMP, 2156-6, , 1 ####[facility] ([id number])[address] [address] GFR/1.73 sq M.predicted among non-blacks MDRD (S/P/Bld) [Vol rate/Area] 61 mL/min/{1.73_m2} Normal >59 [facility] Comment on above: Result Comment: Reported eGFR is based on the CKD-EPI 2020 equation that does not use a race coefficient. Performed By: #### C BC, 2639-3, BMP, 2156-6, 23583-8, 2776-1 ####[facility] ([id number])[address], [place] [address] Glucose [Mass/Vol] 217 mg/dL High 65-99 [facility] Comment on above: Performed By: #### C ALLY, 2639-3, BMP, 2156-, , 2776-1 ####[facility] ([id number])[address], [place] [address] Potassium [Moles/Vol] 4.2 mmol/L Normal 3.5-5.0 [facility] Comment on above: Performed By: #### C ALLY, 2639-3, BMP, 2156-11, , 2776-1 ####[facility] ([id number])[address], [place] [address] Sodium [Moles/Vol] 138 mmol/L Normal 134-146 [facility] Comment on above: Performed By: #### C ALLY, 2639-3, BMP, 2156-11, , 1 ####[facility] ([id number])[address], [place] [address] Urea nitrogen [Mass/Vol] 23 mg/dL Normal 5-23 [facility] Comment on above: Performed By: #### C ALLY, 2639-3, BMP, 2156-11, , 2776-1 ####[facility] ([id number])[address], [place] [address] CK [Catalytic activity/Vol]o n 11-09-2023 CPK 44 U/L Normal 24-195 [facility] Comment on above: Performed By: #### 2 157-6, 9-3 ####[facility] ([id number])[address], [address], [place] [address] CPK 30 U/L Normal 24-195 [facility] Comment on above: Performed By: #### C BC, 2639-3, BMP, 2156-6, , 1 ####[facility] ([id number])[address], [address] [place] [address] COMPLETE BLOOD COUNTon 11-08 Erythrocyte distribution width (RBC) [Ratio] 24.9 % High 11.5-15.0 [facility] Comment on above: Performed By: #### C BC, 2639-3, BMP, 2156-6, , 2776-06 ####[facility] ([id number])[address], [address] [place] [address] Hematocrit (Bld) [Volume fraction] 26.8 % Low 39-49 [facility] Comment on above: Performed By: #### Snehal BC, 2639-3, BMP, 2156-11, , 2776-06 ####[facility] ([id number])[address] [place] [address] Hemoglobin (Bld) [Mass/Vol] 8.7 g/dL Low 13.0-17.0 [facility] Comment on above: Performed By: #### C ALLY, 2639-3, BMP, 2156-11, , 1 ####[facility] ([id number])[address] [place] [address] MCH (RBC) [Entitic mass] 24.8 pg Low 27-34 [facility] Comment on above: Performed By: #### C BC, 2639-3, BMP, 2156-, , 1 ####[facility] ([id number])[address] [place] [address] MCHC (RBC) [Mass/Vol] 32.6 g/dL Normal 32-36 [facility] Comment on above: Performed By: #### C BC, 2639-3, BMP, 2156-11, , 2776-06 ####[facility] ([id number])[address], [address] [place] [address] MCV (RBC) [Entitic vol] 76 fL Low 80-100 [facility] Comment on above: Performed By: #### Snehal CANALES, 2639-3, BMP, 2156-6, , 2776- ####[facility] ([id number])[address] [place] [address] Platelet mean volume (Bld) [Entitic vol] 9.3 fL Normal 7-12 [facility] Comment on above: Performed By: #### Snehal CANALES, 2639-3, BMP, 2156-, , 2776-06 ####[facility] ([id number])[address] [address] [place] [address] Platelets (Bld) [#/Vol] 184 10*3/uL Normal 150-450 [facility] Comment on above: Performed By: #### Snehal CANALES, 2639-3, BMP, 2156-11, , 2776-06 ####[facility] ([id number])[address] [address] [place] [address] RBC COUNT 3.53 X10E12/L Low 4.10-5.70 [facility] Comment on above: Performed By: #### Snehal CANALES, 2639-3, BMP, 2156-11, , 2776- ####[facility] ([id number])[address] [address] [place] [address] WBC (Bld) [#/Vol] 11.0 10*3/uL Normal 4.0-11.0 [facility] Comment on above: Performed By: #### Snehal CANALES, 2639-3, BMP, 2156-, , 2776- ####[facility] ([id number])[address] [address] Glucose Glucometer (BldC) [M ass/Vol]on 11-09-2023 Glucose [Mass/Vol] 243 mg/dL High 65-99 [facility] Glucose [Mass/Vol] 184 mg/dL High 65-99 [facility] Glucose [Mass/Vol] 199 mg/dL High 65-99 [facility] Glucose [Mass/Vol] 218 mg/dL High 65-99 [facility] Heparin unfractionated Chrom ogenic method Qn (PPP)on 11-09-2023 ANTI XA UFH 0.15 IU/mL Low 0.30-0.70 [facility] Comment on above: Result Comment: Opti mal time for testing is 6 hrs post dosage This test is specific for monitoring patients on UFH, and is not recommended for use with other Anti-Xa medications. Performed By: #### 3 274-8 ####[facility] ([id number])[address] [place] [address] MAGNESIUMon 11-09-2023 Magnesium [Mass/Vol] 2.2 mg/dL Normal 1.8-2.6 [facility] Comment on above: Performed By: #### C BC, 2639-3, BMP, 2157-6, 03684-0, 2777-1 ####[facility] ([id number])[address] [place] [address] Myoglobin [Mass/Vol]on 11-08 SERUM MYOGLOBIN 97.7 ng/mL Normal 17.4-105.7 [facility] Comment on above: Performed By: #### 2 157-6, 2639-3 ####[facility] ([id number])[address], [place] [address] SERUM MYOGLOBIN 51.7 ng/mL Normal 17.4-105.7 [facility] Comment on above: Performed By: #### C BC, 2639-3, BMP, 2156-6, 10659-5, 2777-1 ####[facility] ([id number])[address], [place] [address] PHOSPHORUSon 11-09-2023 Phosphate [Mass/Vol] 4.4 mg/dL Normal 2.4-4.9 [facility] Comment on above: Performed By: #### C BC, 2639-3, BMP, 2156-11, , 2776-1 ####[facility] ([id number])[address] [place] [address] BASIC METABOLIC PANLon 11-07 Anion gap [Moles/Vol] 9 mmol/L Normal 5-15 [facility] Comment on above: Performed By: #### P INR #### [facility] ([id number]) [address] [place] [address] Calcium [Mass/Vol] 8.4 mg/dL Low 8.5-10.5 [facility] Comment on above: Performed By: #### P INR #### [facility] ([id number]) [address] [place] [address] Chloride [Moles/Vol] 106 mmol/L Normal 98-109 [facility] Comment on above: Performed By: #### P INR #### [facility] ([id number]) [address] [place] [address] CO2 [Moles/Vol] 24 mmol/L Normal 22-32 [facility] Comment on above: Performed By: #### P INR #### [facility] ([id number]) [address] [place] [address] Creatinine [Mass/Vol] 1.30 mg/dL Normal 0.60-1.30 [facility] Comment on above: Result Comment: METH OD TRACEABLE TO IDMS STANDARD Performed By: #### P INR #### [facility] ([id number]) [address] [place] [address] GFR/1.73 sq M.predicted among non-blacks MDRD (S/P/Bld) [Vol rate/Area] 64 mL/min/{1.73_m2} Normal >59 [facility] Comment on above: Result Comment: Reported eGFR is based on the CKD-EPI 2020 equation that does not use a race coefficient. Performed By: #### P INR #### [facility] ([id number]) [address] [place] [address] Glucose [Mass/Vol] 163 mg/dL High 65-99 [facility] Comment on above: Performed By: #### P INR #### [facility] ([id number]) [address] [place] [address] Potassium [Moles/Vol] 4.1 mmol/L Normal 3.5-5.0 [facility] Comment on above: Performed By: #### P INR #### [facility] ([id number]) [address] [place] [address] Sodium [Moles/Vol] 139 mmol/L Normal 134-146 [facility] Comment on above: Performed By: #### P INR #### [facility] ([id number]) [address] [place] [address] Urea nitrogen [Mass/Vol] 23 mg/dL Normal 5-23 [facility] Comment on above: Performed By: #### P INR #### [facility] ([id number]) [address] [place] [address] Anion gap [Moles/Vol] 9 mmol/L Normal 5-15 [facility] Comment on above: Performed By: #### C BC, BMP #### [facility] ([id number]) [address] [place] [address] Calcium [Mass/Vol] 8.8 mg/dL Normal 8.5-10.5 [facility] Comment on above: Performed By: #### C ALLY, BMP #### [facility] ([id number]) [address], [address] [place] [address] Chloride [Moles/Vol] 104 mmol/L Normal 98-109 [facility] Comment on above: Performed By: #### C ALLY, BMP #### [facility] ([id number]) [address] [address] [place] [address] CO2 [Moles/Vol] 25 mmol/L Normal 22-32 [facility] Comment on above: Performed By: #### C ALLY, BMP #### [facility] ([id number]) [address] [address] [place] [address] Creatinine [Mass/Vol] 1.70 mg/dL High 0.60-1.30 [facility] Comment on above: Result Comment: METH OD TRACEABLE TO IDMS STANDARD Performed By: #### Snehal CANALES, BMP #### [facility] ([id number]) [address], [address] [place] [address] GFR/1.73 sq M.predicted among non-blacks MDRD (S/P/Bld) [Vol rate/Area] 46 mL/min/{1.73_m2} Low >59 [facility] Comment on above: Result Comment: Reported eGFR is based on the CKD-EPI 2020 equation that does not use a race coefficient. Performed By: #### C ALLY, BMP #### [facility] ([id number]) [address] [address] [place] [address] Glucose [Mass/Vol] 111 mg/dL High 65-99 [facility] Comment on above: Performed By: #### Snehal CANALES, BMP #### [facility] ([id number]) [address], [address] [place] [address] Potassium [Moles/Vol] 3.8 mmol/L Normal 3.5-5.0 [facility] Comment on above: Performed By: #### C BC, BMP #### [facility] ([id number]) [address], [address] [place] [address] Sodium [Moles/Vol] 138 mmol/L Normal 134-146 [facility] Comment on above: Performed By: #### C BC, BMP #### [facility] ([id number]) [address], [address] [place] [address] Urea nitrogen [Mass/Vol] 28 mg/dL High 5-23 [facility] Comment on above: Performed By: #### C BC, BMP #### [facility] ([id number]) [address], [address] [place] [address] CK [Catalytic activity/Vol]o n 11-08-2023 CPK 26 U/L Normal 24-195 [facility] Comment on above: Performed By: #### P INR #### [facility] ([id number]) [address] [place] [address] COMPLETE BLOOD COUNTon 11-07 Erythrocyte distribution width (RBC) [Ratio] 24.8 % High 11.5-15.0 [facility] Comment on above: Performed By: #### P INR #### [facility] ([id number]) [address] [place] [address] Hematocrit (Bld) [Volume fraction] 29.3 % Low 39-49 [facility] Comment on above: Performed By: #### P INR #### [facility] ([id number]) [address] [place] [address] Hemoglobin (Bld) [Mass/Vol] 9.6 g/dL Low 13.0-17.0 [facility] Comment on above: Performed By: #### P INR #### [facility] ([id number]) [address] [place] [address] MCH (RBC) [Entitic mass] 24.9 pg Low 27-34 [facility] Comment on above: Performed By: #### P INR #### [facility] ([id number]) [address], [address] [place] [address] MCHC (RBC) [Mass/Vol] 32.7 g/dL Normal 32-36 [facility] Comment on above: Performed By: #### P INR #### [facility] ([id number]) [address], [address] [place] [address] MCV (RBC) [Entitic vol] 76 fL Low 80-100 [facility] Comment on above: Performed By: #### P INR #### [facility] ([id number]) [address], [address] [place] [address] Platelet mean volume (Bld) [Entitic vol] 8.7 fL Normal 7-12 [facility] Comment on above: Performed By: #### P INR #### [facility] ([id number]) [address], [address] [place] [address] Platelets (Bld) [#/Vol] 169 10*3/uL Normal 150-450 [facility] Comment on above: Performed By: #### P INR #### [facility] ([id number]) [address], [address] [place] [address] RBC COUNT 3.85 X10E12/L Low 4.10-5.70 [facility] Comment on above: Performed By: #### P INR #### [facility] ([id number]) [address], [address] [place] [address] WBC (Bld) [#/Vol] 13.5 10*3/uL High 4.0-11.0 [facility] Comment on above: Performed By: #### P INR #### [facility] ([id number]) [address] [place] [address] Erythrocyte distribution width (RBC) [Ratio] 25.2 % High 11.5-15.0 [facility] Comment on above: Performed By: #### C BC, BMP #### [facility] ([id number]) [address], [address] [place] [address] Hematocrit (Bld) [Volume fraction] 33.0 % Low 39-49 [facility] Comment on above: Performed By: #### C BC, BMP #### [facility] ([id number]) [address], [address] [place] [address] Hemoglobin (Bld) [Mass/Vol] 10.8 g/dL Low 13.0-17.0 [facility] Comment on above: Performed By: #### C BC, BMP #### [facility] ([id number]) [address], [address] [place] [address] MCH (RBC) [Entitic mass] 25.0 pg Low 27-34 [facility] Comment on above: Performed By: #### C BC, BMP #### [facility] ([id number]) [address], [address] [place] [address] MCHC (RBC) [Mass/Vol] 32.8 g/dL Normal 32-36 [facility] Comment on above: Performed By: #### C BC, BMP #### [facility] ([id number]) [address] [place] [address] MCV (RBC) [Entitic vol] 76 fL Low 80-100 [facility] Comment on above: Performed By: #### C BC, BMP #### [facility] ([id number]) [address], [address] [place] [address] Platelet mean volume (Bld) [Entitic vol] 8.8 fL Normal 7-12 [facility] Comment on above: Performed By: #### C ALLY, BMP #### [facility] ([id number]) [address], [address] [place] [address] Platelets (Bld) [#/Vol] 172 10*3/uL Normal 150-450 [facility] Comment on above: Performed By: #### C ALLY, BMP #### [facility] ([id number]) [address], [address] [place] [address] RBC COUNT 4.33 X10E12/L Normal 4.10-5.70 [facility] Comment on above: Performed By: #### C ALLY, BMP #### [facility] ([id number]) [address], [address] [place] [address] WBC (Bld) [#/Vol] 9.3 10*3/uL Normal 4.0-11.0 [facility] Comment on above: Performed By: #### C ALLY, BMP #### [facility] ([id number]) [address], [address] [place] [address] Glucose Glucometer (dC) [M ass/Vol]on 11-08-2023 Glucose [Mass/Vol] 162 mg/dL High 65-99 [facility] Glucose [Mass/Vol] 96 mg/dL Normal 65-99 [facility] Glucose [Mass/Vol] 142 mg/dL High 65-99 [facility] Glucose [Mass/Vol] 114 mg/dL High 65-99 [facility] Lactate (P ekaterina) [Moles/Vol]o n 11-08-2023 LACTATE W/REFLEX 1.0 mmol/L Normal 0.4-2.0 [facility] Comment on above: Result Comment: Result did not trigger repeat Lactate, re-order if needed. Performed By: #### P INR #### [facility] ([id number]) [address], [address] [place] [address] MAGNESIUMon 11-08-2023 Magnesium [Mass/Vol] 1.7 mg/dL Low 1.8-2.6 [facility] Comment on above: Performed By: #### P INR #### [facility] ([id number]) [address], [address] [place] [address] Myoglobin [Mass/Vol]on 11-07 SERUM MYOGLOBIN 33.1 ng/mL Normal 17.4-105.7 [facility] Comment on above: Performed By: #### P INR #### [facility] ([id number]) [address], [address] [place] [address] PHOSPHORUSon 11-08-2023 Phosphate [Mass/Vol] 4.0 mg/dL Normal 2.4-4.9 [facility] Comment on above: Performed By: #### P INR #### [facility] ([id number]) [address] [address] [place] [address] PROTIME AND INRon 11-08-2023 INR Coag (PPP) [Relative time] 1.3 {INR} High 0.8-1.1 [facility] Comment on above: Performed By: #### P INR #### [facility] ([id number]) [address], [address] [place] [address] PT Coag (PPP) [Time] 14.7 s High 9.8-13.2 [facility] Comment on above: Performed By: #### P INR #### [facility] ([id number]) [address], [address] [place] [address] RAPID CARDIACon 11-08-2023 COURTNEY'S TEST Normal [facility] Comment on above: Performed By: #### A FAB5 #### [facility] ([id number]) [address] [place] [address] Base excess Calc (Bld) [Moles/Vol] 0.1 mmol/L Normal 0.0-2.0 [facility] Comment on above: Performed By: #### A FAB5 #### [facility] ([id number]) [address] [place] [address] Body temperature 98.6 [degF] Normal 37.0 [facility] Comment on above: Performed By: #### A FAB5 #### [facility] ([id number]) [address] [place] [address] Glucose [Mass/Vol] 117 mg/dL High 65-99 [facility] Comment on above: Performed By: #### A FAB5 #### [facility] ([id number]) [address] [place] [address] HCO3 (Bld) [Moles/Vol] 24.8 mmol/L Normal 22-[address] [facility] Comment on above: Performed By: #### A FAB5 #### [facility] ([id number]) [address] [place] [address] Hematocrit (Bld) [Volume fraction] 31 % Low 39-49 [facility] Comment on above: Performed By: #### A FAB5 #### [facility] ([id number]) [address] [place] [address] Hemoglobin (Bld) [Mass/Vol] 10.2 g/dL Low 13.0-17.0 [facility] Comment on above: Performed By: #### A FAB5 #### [facility] ([id number]) [address] [place] [address] INSP. O2 CONC. 100 % Normal [facility] Comment on above: Performed By: #### A FAB5 #### [facility] ([id number]) [address] [place] [address] IONIZED CALCIUM 4.8 mg/dL Normal 4.5-5.3 [facility] Comment on above: Performed By: #### A FAB5 #### [facility] ([id number]) [address] [place] [address] Oxygen (Bld) [Partial pressure] 167 mm[Hg] High 80-100 [facility] Comment on above: Performed By: #### A FAB5 #### [facility] ([id number]) [address] [place] [address] Oxygen saturation in Blood 100.8 % Normal >90 [facility] Comment on above: Performed By: #### A FAB5 #### [facility] ([id number]) [address] [place] [address] PCO2 39.7 MMHG Normal 35-45 [facility] Comment on above: Performed By: #### A FAB5 #### [facility] ([id number]) [address] [place] [address] pH (Bld) 7.404 [pH] Normal 7.350-7.45 0 [facility] Comment on above: Performed By: #### A FAB5 #### [facility] ([id number]) [address] [place] [address] Potassium [Moles/Vol] 3.8 mmol/L Normal 3.5-5.0 [facility] Comment on above: Performed By: #### A FAB5 #### [facility] ([id number]) [address] [place] [address] SAMPLE SITE KECIA Normal [facility] Comment on above: Performed By: #### A FAB5 #### [facility] ([id number]) [address] [place] [address] SAMPLE TYPE Arterial Normal [facility] Comment on above: Performed By: #### A FAB5 #### [facility] ([id number]) [address] [place] [address] RAPID CARDIAC W/ NAon 2023 COURTNEY'S TEST Normal [facility] Comment on above: Performed By: #### P INR #### [facility] ([id number]) [address] [place] [address] Base excess Calc (Bld) [Moles/Vol] 0.2 mmol/L Normal 0.0-2.0 [facility] Comment on above: Performed By: #### P INR #### [facility] ([id number]) [address], [address] [place] [address] Body temperature 98.6 [degF] Normal 37.0 [facility] Comment on above: Performed By: #### P INR #### [facility] ([id number]) [address], [address] [place] [address] Glucose [Mass/Vol] 125 mg/dL High 65-99 [facility] Comment on above: Performed By: #### P INR #### [facility] ([id number]) [address], [address] [place] [address] HCO3 (Bld) [Moles/Vol] 25.3 mmol/L Normal 22-[address] [facility] Comment on above: Performed By: #### P INR #### [facility] ([id number]) [address] [place] [address] Hematocrit (Bld) [Volume fraction] 31 % Low 39-49 [facility] Comment on above: Performed By: #### P INR #### [facility] ([id number]) [address], [address] [place] [address] Hemoglobin (Bld) [Mass/Vol] 10.0 g/dL Low 13.0-17.0 [facility] Comment on above: Performed By: #### P INR #### [facility] ([id number]) [address], [address] [place] [address] INSP. O2 CONC. 50 % Normal [facility] Comment on above: Performed By: #### P INR #### [facility] ([id number]) [address], [address] [place] [address] IONIZED CALCIUM 4.7 mg/dL Normal 4.5-5.3 [facility] Comment on above: Performed By: #### P INR #### [facility] ([id number]) [address], [address] [place] [address] Oxygen (Bld) [Partial pressure] 131 mm[Hg] High 80-100 [facility] Comment on above: Performed By: #### P INR #### [facility] ([id number]) [address], [address] [place] [address] Oxygen saturation in Blood 99.9 % Normal >90 [facility] Comment on above: Performed By: #### P INR #### [facility] ([id number]) [address], [address] [place] [address] PCO2 42.7 MMHG Normal 35-45 [facility] Comment on above: Performed By: #### P INR #### [facility] ([id number]) [address], [address] [place] [address] pH (Bld) 7.381 [pH] Normal 7.350-7.45 0 [facility] Comment on above: Performed By: #### P INR #### [facility] ([id number]) [address] [place] [address] Potassium [Moles/Vol] 3.7 mmol/L Normal 3.5-5.0 [facility] Comment on above: Performed By: #### P INR #### [facility] ([id number]) [address], [address] [place] [address] SAMPLE SITE KECIA Normal [facility] Comment on above: Performed By: #### P INR #### [facility] ([id number]) [address] [place] [address] SAMPLE TYPE Arterial Normal [facility] Comment on above: Performed By: #### P INR #### [facility] ([id number]) [address] [place] [address] Sodium [Moles/Vol] 139 mmol/L Normal 134-146 [facility] Comment on above: Performed By: #### P INR #### [facility] ([id number]) [address] [place] [address] aPTT Coag (PPP) [Time]on aPTT Coag (Bld) [Time] 30 s Normal 26-37 [facility] Comment on above: Performed By: #### P INR #### [facility] ([id number]) [address] [place] [address] Glucose Glucometer (BldC) [M ass/Vol]on 11-07-2023 Glucose [Mass/Vol] 150 mg/dL High 65-99 [facility] Glucose [Mass/Vol] 58 mg/dL Low 65-99 [facility] POC [id number] 11-07-2023 Chloride [Moles/Vol] 98 mmol/L Normal 98-109 [facility] Comment on above: Performed By: #### I ELGBC #### [facility] ([id number]) [address] [place] [address] CO2 [Moles/Vol] 31 mmol/L Normal 22-32 [facility] Comment on above: Performed By: #### I ELGBC #### [facility] ([id number]) [address] [place] [place] [address] Creatinine [Mass/Vol] 1.9 mg/dL High 0.7-1.2 [facility] Comment on above: Result Comment: METH OD TRACEABLE TO IDMS STANDARD Performed By: #### I [facility] #### [facility] ([id number]) [address] [place] [address] GFR/1.73 sq M.predicted among non-blacks MDRD (S/P/Bld) [Vol rate/Area] 40 mL/min/{1.73_m2} Low >59 [facility] Comment on above: Result Comment: Reported eGFR is based on the CKD-EPI 2020 equation that does not use a race coefficient. Performed By: #### I [facility] #### [facility] ([id number]) [address] [place] [address] Glucose [Mass/Vol] 72 mg/dL Normal 65-99 [facility] Comment on above: Performed By: #### I [facility] #### [facility] ([id number]) [address] [place] [address] Potassium [Moles/Vol] 3.6 mmol/L Normal 3.5-5.0 [facility] Comment on above: Performed By: #### I [facility] #### [facility] ([id number]) [address] [place] [address] Sodium [Moles/Vol] 139 mmol/L Normal 134-146 [facility] Comment on above: Performed By: #### I [facility] #### [facility] ([id number]) [address] [place] [address] Urea nitrogen [Mass/Vol] 31 mg/dL High 6-23 [facility] Comment on above: Performed By: #### I [facility] #### [facility] ([id number]) [address] [place] [address] PROTIME AND INRon 11-07-2023 INR Coag (PPP) [Relative time] 1.3 {INR} High 0.8-1.1 [facility] Comment on above: Performed By: #### P INR #### [facility] ([id number]) [address] [place] [address] PT Coag (PPP) [Time] 14.5 s High 9.8-13.2 [facility] Comment on above: Performed By: #### P INR #### 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 Normal [facility] Comment on above: Result Comment: Elec [...] to severely abnormal, worsening distally. Ordering Provider: Padimni Montes FINAL REPORT Dictated: 10/20/2023 12:31 pm Christiano Guillen MD Signed (Electronic Signature): 10/20/2023 12:31 pm Signed by: Christiano Guillen MD Transcribed by: HASEEB Technologist: TARAN [place] [facility] CHEMISTRYOrdered By: SYSTEM SYSTEM on 10-19-2023 [...] 370 Contrast amount in ml's: [address] [facility] Consent for Treatmenton 10-03 Consent for Treatment [id number]#1.00TIFF Normal [facility] Creatinineon 10-19-2023 Creatinine [Mass/Vol] 1.6 mg/dL High 0.5-1.3 [facility] Comment on above: Performed By: #### 2 [id number] #### [facility] [address] [place] [address] Physician Orderon 10-19-2023 Physician Order [id number]#1.00TIFF Normal [facility] eGFRon 10-19-2023 eGFR 50 mL/min/1.73 m2 Low >=[address] [facility] Comment on above: Order Comment: Order added by Discern Expert. Performed By: #### 1 [id number] #### [facility] [address] [place] [address] Outside Progress Noteon 10-03 Outside Progress Note [id number]#1.00TIFF Normal [facility] Physician Orderon 10-18-2023 Physician Order [id number]#1.00TIF F Normal [facility] Physician Order [id number]#1.00TIFF Normal [facility] Basophils Auto (Bld) [#/Vol] on 10-06-2023 Basophils (Bld) [#/Vol] 0.0 10 3/uL 0.0-0.1 [facility] Basophils/100 WBC Auto (Bld) on 10-06-2023 Basophils/100 WBC (Bld) 0.3 % 0.2-2.0 [facility] Eosinophils/100 WBC Auto (Bl d)on 10-06-2023 Eosinophils/100 WBC (Bld) 1.9 % 0.9-7.0 [facility] Erythrocyte distribution wid th Auto (RBC) [Ratio]on 10-06-2023 Erythrocyte distribution width (RBC) [Ratio] 19.9 % High 11.0-15.0 [facility] Estimated glomerular filtrat ion rate (GFR) non- Americanon 10-06-2023 GFR/1.73 sq M.predicted among non-blacks MDRD (S/P/Bld) [Vol rate/Area] 42 mL/min/{1.73_m2} Low >=60 [facility] Globulin Calc (S) [Mass/Vol] on 10-06-2023 Globulin (S) [Mass/Vol] 4.3 g/dL [facility] Hematocrit Auto (Bld) [Volum e fraction]on 10-06-2023 Hematocrit (Bld) [Volume fraction] 28.3 % Low 42.0-54.0 [facility] Hemoglobin [Mass/volume] in Bloodon 10-06-2023 Hemoglobin (Bld) [Mass/Vol] 8.4 g/dL Low 14.0-18.0 [facility] Laboratory - Chemistry and C hemistry - challengeon 10-06-2023 Albumin [Mass/Vol] 2.1 g/dL Low 3.4-5.0 [facility] ALP [Catalytic activity/Vol] 133 U/L High 46-116 [facility] ALT [Catalytic activity/Vol] 18 U/L 16-63 [facility] AST [Catalytic activity/Vol] 20 U/L 15-37 [facility] Bilirubin [Mass/Vol] 0.3 mg/dL 0.2-1.0 [facility] Calcium [Mass/Vol] 9.4 mg/dL 8.5-10.1 [facility] Chloride [Moles/Vol] 103 mmol/L 98-107 [facility] CO2 [Moles/Vol] 23.7 mmol/L 21.0-32.0 [facility] Creatinine [Mass/Vol] 1.67 mg/dL High 0.70-1.30 [facility] GFR/1.73 sq M.predicted MDRD (S/P/Bld) [Vol rate/Area] 52 mL/min/{1.73_m2} Low >=60 [facility] Glucose [Mass/Vol] 91 mg/dL 74-106 [facility] Magnesium [Mass/Vol] 1.6 mg/dL Low 1.8-2.4 [facility] Potassium [Moles/Vol] 4.8 mmol/L 3.5-5.1 [facility] Protein [Mass/Vol] 6.4 g/dL 6.4-8.2 [facility] Sodium [Moles/Vol] 136 mmol/L 136-145 [facility] Urea nitrogen [Mass/Vol] 29.0 mg/dL High 7.0-18.0 [facility] Urea nitrogen/Creatinine [Mass ratio] 17.4 mg/mg [facility] - Hematology and Cell countson 10-06-2023 ESR (Bld) [Velocity] mm/h High <=20 [facility] Immature granulocytes/100 WBC (Bld) 1.5 % High 0.0-0.5 [facility] Leukocytes [#/volume] correc jorge for nucleated erythrocytes in Blood by Automated counon 10-06-2023 WBC corrected for nucl RBC Auto (Bld) [#/Vol] 11.6 10 3/uL High 4.0-11.0 [facility] Lymphocytes Auto (Bld) [#/Vo l]on 10-06-2023 Lymphocytes (Bld) [#/Vol] 1.5 10 3/uL 1.2-3.8 [facility] Lymphocytes/100 WBC Auto (Bl d)on 10-06-2023 Lymphocytes/100 WBC (Bld) 12.9 % Low 20.5-60.0 [facility] MCH Auto (RBC) [Entitic mass ]on 10-06-2023 MCH (RBC) [Entitic mass] 22.5 pg Low 25.9-34.0 [facility] MCHC Auto (RBC) [Mass/Vol]on 10-06-2023 MCHC (RBC) [Mass/Vol] 29.7 g/dL Low 29.9-35.2 [facility] MCV Auto (RBC) [Entitic vol] on 10-06-2023 MCV (RBC) [Entitic vol] 75.9 fL Low 80.0-94.0 [facility] Monocytes Auto (Bld) [#/Vol] on 10-06-2023 Monocytes (Bld) [#/Vol] 1.3 10 3/uL High 0.3-0.8 [facility] Monocytes/100 WBC Auto (Bld) on 10-06-2023 Monocytes/100 WBC (Bld) 10.9 % 1.7-12.0 [facility] Neutrophils Auto (Bld) [#/Vo l]on 10-06-2023 Neutrophils (Bld) [#/Vol] 8.4 10 3/uL High 1.4-6.5 [facility] Neutrophils/100 WBC Auto (Bl d)on 10-06-2023 Neutrophils/100 WBC (Bld) 72.5 % 43.0-75.0 [facility] No Panel Informationon 10-05 Eosinophils # (Auto) 0.2 10 3/uL 0.0-0.7 [facility] Immature Granulocyte # (Auto) 0.17 10 3/uL High 0.00-0.03 [facility] Platelet mean volume Auto (B ld) [Entitic vol]on 10-06-2023 Platelet mean volume (Bld) [Entitic vol] 10.3 fL 9.5-13.5 [facility] Platelets Auto (Bld) [#/Vol] on 10-06-2023 Platelets (Bld) [#/Vol] 233 10 3/uL 150-450 [facility] RBC Auto (Bld) [#/Vol]on RBC (Bld) [#/Vol] 3.73 10 6/uL Low 4.70-6.10 [facility] Serum or plasma albumin/glob ulin mass ratioon 10-06-2023 Albumin/Globulin [Mass ratio] 0.5 {ratio} [facility] Serum or plasma anion gap de terminationon 10-06-2023 Anion gap [Moles/Vol] 14.1 mmol/[facility] Auto (Bld) [#/Vol] on 10-05-2023 Basophils (Bld) [#/Vol] 0.1 10 3/uL 0.0-0.1 [facility] Basophils/100 WBC Auto (Bld) on 10-05-2023 Basophils/100 WBC (Bld) 0.6 % 0.2-2.0 [facility] Eosinophils/100 WBC Auto (Bl d)on 10-05-2023 Eosinophils/100 WBC (Bld) 3.3 % 0.9-7.0 [facility] Erythrocyte distribution wid th Auto (RBC) [Ratio]on 10-05-2023 Erythrocyte distribution width (RBC) [Ratio] 19.6 % High 11.0-15.0 [facility] Estimated glomerular filtrat ion rate (GFR) non- Americanon 10-05-2023 GFR/1.73 sq M.predicted among non-blacks MDRD (S/P/Bld) [Vol rate/Area] 41 mL/min/{1.73_m2} Low >=60 [facility] Globulin Calc (S) [Mass/Vol] on 10-05-2023 Globulin (S) [Mass/Vol] 4.7 g/dL [facility] Hematocrit Auto (Bld) [Volum e fraction]on 10-05-2023 Hematocrit (Bld) [Volume fraction] 29.9 % Low 42.0-54.0 [facility] Hemoglobin [Mass/volume] in Bloodon 10-05-2023 Hemoglobin (Bld) [Mass/Vol] 9.0 g/dL Low 14.0-18.0 [facility] Guy 10-05-2023 L Specimen: [id number] Received: 10/06/23 Status: COLTON Nath Num: [id number] Spec Type: Surgical Subm Dr: Paula Elias DPM, MS Tissues: A DIGIT AMPUTATION (RT 2,3,4 AND 5 METATARSAL AM) Procedures: HE/6, Gross/Micro L4, Decalcification Age/ Patient Sex Location Account Attending Physician Solomon Feldman SR 58/M LABELL [id number] Paula Elias DPM, MS SPEC NUM: [id number] RECD: 10/06/23 STATUS: [facility] NATH NUM: [id number] SHAKIRA: 10/05/[address]: Paula Elias DPM, [...] specimen demonstrates firm, yellow spongy bone matrix. Director Underwriter Sales sections are submitted as follows: A1: Skin and soft tissue margins A2: Second digit, bone margin; #1 proximal phalangeal margin (following decal) A3: Third digit, bone margin; #2 proximal phalangeal margin (following decal) A4: Fourth digit, bone margin; #3 proximal phalangeal margin (following decal) A5: Fifth digit, bone margin; #4 proximal phalangeal margin (following decal) Specimen: [id number] Received: 10/06/23 Status: COLTON Tayler Num: [id number] Spec Type: Surgical Subm Dr: Paula Elias,LINDSEY, MS Tissues: A DIGIT AMPUTATION (RT 2,3,4 AND 5 METATARSAL AM) Procedures: LULU/Ramirez, Gross/Micro L4, Decalcification Patient: Solomon Feldman SR [id number] (Continued) Specimen: [id number] Received: 10/06/23 (Continued) Gross Description (Continued) Signed (signature on file) Padmini Linn MD 10/10/23 1542 Specimen: [id number] Received: 10/06/23 Status: COLTON Tayler Num: [id number] Spec Type: Surgical Subm Dr: Paula Elias,LINDSEY, MS Tissues: A DIGIT AMPUTATION (RT 2,3,4 AND 5 METATARSAL AM) Procedures: HE/6, Gross/Micro L4, Decalcification Patient: Solomon Feldman SR [id number] (Continued) Specimen: [id number] Received: 10/06/23 (Continued) Gross Description (Continued) A6: Full-thickness section to include skin, underlying soft tissue and bone (following decal) Clinical history: None given CPT Codes 52383 FOREFOOT AND DIGITS Specimen: [id number] Received: 10/06/23-6969 Status: COLTON Nath Num: [id number] Spec Type: Surgical Subm Dr: Paula Elias DPM, MS Tissues: A DIGIT AMPUTATION (RT 2,3,4 AND 5 METATARSAL AM) Procedures: HE/6, Gross/Micro L4, Decalcification Patient: Solomon Feldman SR [id number] (Continued) Signed (signature on file) Padmini Linn MD 10/10/23 1542 Normal [facility] Laboratory - Chemistry and C hemistry - challengeon 10-05-2023 Albumin [Mass/Vol] 2.2 g/dL Low 3.4-5.0 [facility] ALP [Catalytic activity/Vol] 140 U/L High 46-116 [facility] ALT [Catalytic activity/Vol] 18 U/L 16-63 [facility] AST [Catalytic activity/Vol] 22 U/L 15-37 [facility] Bilirubin [Mass/Vol] 0.5 mg/dL 0.2-1.0 [facility] Calcium [Mass/Vol] 9.2 mg/dL 8.5-10.1 [facility] Chloride [Moles/Vol] 100 mmol/L 98-107 [facility] CO2 [Moles/Vol] 22.6 mmol/L 21.0-32.0 [facility] Creatinine [Mass/Vol] 1.74 mg/dL High 0.70-1.30 [facility] GFR/1.73 sq M.predicted MDRD (S/P/Bld) [Vol rate/Area] 49 mL/min/{1.73_m2} Low >=60 [facility] Glucose [Mass/Vol] 162 mg/dL High 74-106 [facility] Magnesium [Mass/Vol] 1.7 mg/dL Low 1.8-2.4 [facility] Potassium [Moles/Vol] 5.3 mmol/L High 3.5-5.1 [facility] Protein [Mass/Vol] 6.9 g/dL 6.4-8.2 [facility] Sodium [Moles/Vol] 133 mmol/L Low 136-145 [facility] Urea nitrogen [Mass/Vol] 30.0 mg/dL High 7.0-18.0 [facility] Urea nitrogen/Creatinine [Mass ratio] 17.2 mg/mg [facility] Laboratory - Hematology and Cell countson 10-05-2023 ESR (Bld) [Velocity] 130 mm/h High <=20 [facility] Immature granulocytes/100 WBC (Bld) 1.3 % High 0.0-0.5 [facility] Leukocytes [#/volume] correc jorge for nucleated erythrocytes in Blood by Automated counon 10-05-2023 WBC corrected for nucl RBC Auto (Bld) [#/Vol] 12.6 10 3/uL High 4.0-11.0 [facility] Lymphocytes Auto (Bld) [#/Vo l]on 10-05-2023 Lymphocytes (Bld) [#/Vol] 1.3 10 3/uL 1.2-3.8 [facility] Lymphocytes/100 WBC Auto (Bl d)on 10-05-2023 Lymphocytes/100 WBC (Bld) 10.1 % Low 20.5-60.0 [facility] MCH Auto (RBC) [Entitic mass ]on 10-05-2023 MCH (RBC) [Entitic mass] 22.7 pg Low 25.9-34.0 [facility] MCHC Auto (RBC) [Mass/Vol]on 10-05-2023 MCHC (RBC) [Mass/Vol] 30.1 g/dL 29.9-35.2 [facility] MCV Auto (RBC) [Entitic vol] on 10-05-2023 MCV (RBC) [Entitic vol] 75.3 fL Low 80.0-94.0 [facility] Monocytes Auto (Bld) [#/Vol] on 10-05-2023 Monocytes (Bld) [#/Vol] 1.4 10 3/uL High 0.3-0.8 [facility] Monocytes/100 WBC Auto (Bld) on 10-05-2023 Monocytes/100 WBC (Bld) 10.9 % 1.7-12.0 [facility] Neutrophils Auto (Bld) [#/Vo l]on 10-05-2023 Neutrophils (Bld) [#/Vol] 9.3 10 3/uL High 1.4-6.5 [facility] Neutrophils/100 WBC Auto (Bl d)on 10-05-2023 Neutrophils/100 WBC (Bld) 73.8 % 43.0-75.0 [facility] No Panel Informationon 10-04 Eosinophils # (Auto) 0.4 10 3/uL 0.0-0.7 [facility] Immature Granulocyte # (Auto) 0.16 10 3/uL High 0.00-0.03 [facility] Platelet mean volume Auto (B ld) [Entitic vol]on 10-05-2023 Platelet mean volume (Bld) [Entitic vol] 11.3 fL 9.5-13.5 [facility] Platelets Auto (Bld) [#/Vol] on 10-05-2023 Platelets (Bld) [#/Vol] 203 10 3/uL 150-450 [facility] RBC Auto (Bld) [#/Vol]on RBC (Bld) [#/Vol] 3.97 10 6/uL Low 4.70-6.10 [facility] Serum or plasma albumin/glob ulin mass ratioon 10-05-2023 Albumin/Globulin [Mass ratio] 0.5 {ratio} [facility] Serum or plasma anion gap de terminationon 10-05-2023 Anion gap [Moles/Vol] 15.7 [facility] Basophils Auto (Bld) [#/Vol] on 10-04-2023 Basophils (Bld) [#/Vol] 0.1 10 3/uL 0.0-0.1 [facility] Basophils/100 WBC Auto (Bld) on 10-04-2023 Basophils/100 WBC (Bld) 0.5 % 0.2-2.0 [facility] Eosinophils/100 WBC Auto (Bl d)on 10-04-2023 Eosinophils/100 WBC (Bld) 3.6 % 0.9-7.0 [facility] Erythrocyte distribution wid th Auto (RBC) [Ratio]on 10-04-2023 Erythrocyte distribution width (RBC) [Ratio] 19.6 % High 11.0-15.0 [facility] Estimated glomerular filtrat ion rate (GFR) non- Americanon 10-04-2023 GFR/1.73 sq M.predicted among non-blacks MDRD (S/P/Bld) [Vol rate/Area] 44 mL/min/{1.73_m2} Low >=60 [facility] Globulin Calc (S) [Mass/Vol] on 10-04-2023 Globulin (S) [Mass/Vol] 4.3 g/dL [facility] Hematocrit Auto (Bld) [Volum e fraction]on 10-04-2023 Hematocrit (Bld) [Volume fraction] 26.8 % Low 42.0-54.0 [facility] Hemoglobin [Mass/volume] in Bloodon 10-04-2023 Hemoglobin (Bld) [Mass/Vol] 7.9 g/dL Low 14.0-18.0 [facility] Laboratory - Chemistry and C hemistry - challengeon 10-04-2023 Albumin [Mass/Vol] 1.9 g/dL Low 3.4-5.0 [facility] ALP [Catalytic activity/Vol] 135 U/L High 46-116 [facility] ALT [Catalytic activity/Vol] 16 U/L 16-63 [facility] AST [Catalytic activity/Vol] 19 U/L 15-37 [facility] Bilirubin [Mass/Vol] 0.4 mg/dL 0.2-1.0 [facility] Calcium [Mass/Vol] 7.8 mg/dL Low 8.5-10.1 [facility] Chloride [Moles/Vol] 102 mmol/L 98-107 [facility] CO2 [Moles/Vol] 25.0 mmol/L 21.0-32.0 [facility] Creatinine [Mass/Vol] 1.61 mg/dL High 0.70-1.30 [facility] GFR/1.73 sq M.predicted MDRD (S/P/Bld) [Vol rate/Area] 54 mL/min/{1.73_m2} Low >=60 [facility] Glucose [Mass/Vol] 136 mg/dL High 74-106 [facility] Magnesium [Mass/Vol] 1.7 mg/dL Low 1.8-2.4 [facility] Potassium [Moles/Vol] 5.1 mmol/L 3.5-5.1 [facility] Protein [Mass/Vol] 6.2 g/dL Low 6.4-8.2 [facility] Sodium [Moles/Vol] 134 mmol/L Low 136-145 [facility] Urea nitrogen [Mass/Vol] 25.0 mg/dL High 7.0-18.0 [facility] Urea nitrogen/Creatinine [Mass ratio] 15.5 mg/mg [facility] Laboratory - Hematology and Cell countson 10-04-2023 ESR (Bld) [Velocity] 117 mm/h High <=20 [facility] Immature granulocytes/100 WBC (Bld) 0.9 % High 0.0-0.5 [facility] Leukocytes [#/volume] correc jorge for nucleated erythrocytes in Blood by Automated counon 10-04-2023 WBC corrected for nucl RBC Auto (Bld) [#/Vol] 11.5 10 3/uL High 4.0-11.0 [facility] Lymphocytes Auto (Bld) [#/Vo l]on 10-04-2023 Lymphocytes (Bld) [#/Vol] 1.3 10 3/uL 1.2-3.8 [facility] Lymphocytes/100 WBC Auto (Bl d)on 10-04-2023 Lymphocytes/100 WBC (Bld) 10.9 % Low 20.5-60.0 [facility] MCH Auto (RBC) [Entitic mass ]on 10-04-2023 MCH (RBC) [Entitic mass] 22.4 pg Low 25.9-34.0 [facility] MCHC Auto (RBC) [Mass/Vol]on 10-04-2023 MCHC (RBC) [Mass/Vol] 29.5 g/dL Low 29.9-35.2 [facility] MCV Auto (RBC) [Entitic vol] on 10-04-2023 MCV (RBC) [Entitic vol] 75.9 fL Low 80.0-94.0 [facility] Monocytes Auto (Bld) [#/Vol] on 10-04-2023 Monocytes (Bld) [#/Vol] 1.4 10 3/uL High 0.3-0.8 [facility] Monocytes/100 WBC Auto (Bld) on 10-04-2023 Monocytes/100 WBC (Bld) 12.4 % High 1.7-12.0 [facility] Neutrophils Auto (Bld) [#/Vo l]on 10-04-2023 Neutrophils (Bld) [#/Vol] 8.3 10 3/uL High 1.4-6.5 [facility] Neutrophils/100 WBC Auto (Bl d)on 10-04-2023 Neutrophils/100 WBC (Bld) 71.7 % 43.0-75.0 [facility] No Panel Informationon 10-03 Eosinophils # (Auto) 0.4 10 3/uL 0.0-0.7 [facility] Immature Granulocyte # (Auto) 0.10 10 3/uL High 0.00-0.03 [facility] Platelet mean volume Auto (B ld) [Entitic vol]on 10-04-2023 Platelet mean volume (Bld) [Entitic vol] 11.5 fL 9.5-13.5 [facility] Platelets Auto (Bld) [#/Vol] on 10-04-2023 Platelets (Bld) [#/Vol] 154 10 3/uL 150-450 [facility] RBC Auto (Bld) [#/Vol]on RBC (Bld) [#/Vol] 3.53 10 6/uL Low 4.70-6.10 [facility] Serum or plasma albumin/glob ulin mass ratioon 10-04-2023 Albumin/Globulin [Mass ratio] 0.4 {ratio} [facility] Serum or plasma anion gap de terminationon 10-04-2023 Anion gap [Moles/Vol] 12.1 mmol/L [facility] Basophils Auto (Bld) [#/Vol] on 10-03-2023 Basophils (Bld) [#/Vol] 0.1 10 3/uL 0.0-0.1 [facility] Basophils/100 WBC Auto (Bld) on 10-03-2023 Basophils/100 WBC (Bld) 0.7 % 0.2-2.0 [facility] Eosinophils/100 WBC Auto (Bl d)on 10-03-2023 Eosinophils/100 WBC (Bld) 2.7 % 0.9-7.0 [facility] Erythrocyte distribution wid th Auto (RBC) [Ratio]on 10-03-2023 Erythrocyte distribution width (RBC) [Ratio] 19.2 % High 11.0-15.0 [facility] Estimated glomerular filtrat ion rate (GFR) non- Americanon 10-03-2023 GFR/1.73 sq M.predicted among non-blacks MDRD (S/P/Bld) [Vol rate/Area] 46 mL/min/{1.73_m2} Low >=60 [facility] Globulin Calc (S) [Mass/Vol] on 10-03-2023 Globulin (S) [Mass/Vol] 4.1 g/dL [facility] Hematocrit Auto (Bld) [Volum e fraction]on 10-03-2023 Hematocrit (Bld) [Volume fraction] 26.4 % Low 42.0-54.0 [facility] Hemoglobin [Mass/volume] in Bloodon 10-03-2023 Hemoglobin (Bld) [Mass/Vol] 8.1 g/dL Low 14.0-18.0 [facility] Laboratory - Chemistry and C hemistry - challengeon 10-03-2023 Albumin [Mass/Vol] 1.9 g/dL Low 3.4-5.0 [facility] ALP [Catalytic activity/Vol] 140 U/L High 46-116 [facility] ALT [Catalytic activity/Vol] 17 U/L 16-63 [facility] AST [Catalytic activity/Vol] 21 U/L 15-37 [facility] Bilirubin [Mass/Vol] 0.3 mg/dL 0.2-1.0 [facility] Calcium [Mass/Vol] 6.7 mg/dL Low 8.5-10.1 [facility] Chloride [Moles/Vol] 101 mmol/L 98-107 [facility] CO2 [Moles/Vol] 23.9 mmol/L 21.0-32.0 [facility] Creatinine [Mass/Vol] 1.57 mg/dL High 0.70-1.30 [facility] GFR/1.73 sq M.predicted MDRD (S/P/Bld) [Vol rate/Area] 55 mL/min/{1.73_m2} Low >=60 [facility] Glucose [Mass/Vol] 142 mg/dL High 74-106 [facility] Magnesium [Mass/Vol] 1.3 mg/dL Low 1.8-2.4 [facility] Potassium [Moles/Vol] 4.8 mmol/L 3.5-5.1 [facility] Protein [Mass/Vol] 6.0 g/dL Low 6.4-8.2 [facility] Sodium [Moles/Vol] 134 mmol/L Low 136-145 [facility] Urea nitrogen [Mass/Vol] 23.0 mg/dL High 7.0-18.0 [facility] Urea nitrogen/Creatinine [Mass ratio] 14.6 mg/mg [facility] Laboratory - Hematology and Cell countson 10-03-2023 ESR (Bld) [Velocity] mm/h High <=20 [facility] Immature granulocytes/100 WBC (Bld) 1.0 % High 0.0-0.5 [facility] Leukocytes [#/volume] correc jorge for nucleated erythrocytes in Blood by Automated counon 10-03-2023 WBC corrected for nucl RBC Auto (Bld) [#/Vol] 11.6 10 3/uL High 4.0-11.0 [facility] Lymphocytes Auto (Bld) [#/Vo l]on 10-03-2023 Lymphocytes (Bld) [#/Vol] 1.4 10 3/uL 1.2-3.8 [facility] Lymphocytes/100 WBC Auto (Bl d)on 10-03-2023 Lymphocytes/100 WBC (Bld) 12.1 % Low 20.5-60.0 [facility] MCH Auto (RBC) [Entitic mass ]on 10-03-2023 MCH (RBC) [Entitic mass] 23.2 pg Low 25.9-34.0 [facility] MCHC Auto (RBC) [Mass/Vol]on 10-03-2023 MCHC (RBC) [Mass/Vol] 30.7 g/dL 29.9-35.2 [facility] MCV Auto (RBC) [Entitic vol] on 10-03-2023 MCV (RBC) [Entitic vol] 75.6 fL Low 80.0-94.0 [facility] Monocytes Auto (Bld) [#/Vol] on 10-03-2023 Monocytes (Bld) [#/Vol] 1.3 10 3/uL High 0.3-0.8 [facility] Monocytes/100 WBC Auto (Bld) on 10-03-2023 Monocytes/100 WBC (Bld) 10.8 % 1.7-12.0 [facility] Neutrophils Auto (Bld) [#/Vo l]on 10-03-2023 Neutrophils (Bld) [#/Vol] 8.5 10 3/uL High 1.4-6.5 [facility] Neutrophils/100 WBC Auto (Bl d)on 10-03-2023 Neutrophils/100 WBC (Bld) 72.7 % 43.0-75.0 [facility] No Panel Informationon 10-02 Eosinophils # (Auto) 0.3 10 3/uL 0.0-0.7 [facility] Immature Granulocyte # (Auto) 0.12 10 3/uL High 0.00-0.03 [facility] Platelet mean volume Auto (B ld) [Entitic vol]on 10-03-2023 Platelet mean volume (Bld) [Entitic vol] 11.3 fL 9.5-13.5 [facility] Platelets Auto (Bld) [#/Vol] on 10-03-2023 Platelets (Bld) [#/Vol] 141 10 3/uL Low 150-450 [facility] RBC Auto (Bld) [#/Vol]on RBC (Bld) [#/Vol] 3.49 10 6/uL Low 4.70-6.10 [facility] Serum or plasma albumin/glob ulin mass ratioon 10-03-2023 Albumin/Globulin [Mass ratio] 0.5 {ratio} [facility] Serum or plasma anion gap de terminationon 10-03-2023 Anion gap [Moles/Vol] 13.9 mmol/L [facility] Basophils Auto (Bld) [#/Vol] on 10-02-2023 Basophils (Bld) [#/Vol] 0.0 10 3/uL 0.0-0.1 [facility] Basophils/100 WBC Auto (Bld) on 10-02-2023 Basophils/100 WBC (Bld) 0.4 % 0.2-2.0 [facility] Eosinophils/100 WBC Auto (Bl d)on 10-02-2023 Eosinophils/100 WBC (Bld) 2.2 % 0.9-7.0 [facility] Erythrocyte distribution wid th Auto (RBC) [Ratio]on 10-02-2023 Erythrocyte distribution width (RBC) [Ratio] 19.3 % High 11.0-15.0 [facility] Estimated glomerular filtrat ion rate (GFR) non- Americanon 10-02-2023 GFR/1.73 sq M.predicted among non-blacks MDRD (S/P/Bld) [Vol rate/Area] 41 mL/min/{1.73_m2} Low >=60 [facility] Globulin Calc (S) [Mass/Vol] on 10-02-2023 Globulin (S) [Mass/Vol] 4.2 g/dL [facility] Hematocrit Auto (Bld) [Volum e fraction]on 10-02-2023 Hematocrit (Bld) [Volume fraction] 26.1 % Low 42.0-54.0 [facility] Hemoglobin [Mass/volume] in Bloodon 10-02-2023 Hemoglobin (Bld) [Mass/Vol] 7.8 g/dL Low 14.0-18.0 [facility] Guy 10-02-2023 L Specimen: [id number] Received: 10/03/23 Status: COLTON Nath Num: [id number] Spec Type: Surgical Subm Dr: Paula Elias DPM, MS Tissues: A DIGIT AMPUTATION (FIRST METATARSAL RT FOOT) Procedures: HE/2, Gross/Micro L4, Decalcification Age/ Patient Sex Location Account Attending Physician Solomon Feldman 58/M LABELL [id number] Paula Elias DPM, MS SPEC NUM: [id number] RECD: 10/03/23 STATUS: [facility] NUM: [id number] SHAKIRA: 10/02/[address]: Paula Elias DPM, [...] firm yellow- pink spongy bone matrix. 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 Clinical history: Right diabetic foot infection CPT Codes 06911 Specimen: [id number] Received: 10/03/23 Status: COLTON Nath Num: [id number] Spec Type: Surgical Subm Dr: Paula Elias,LINDSEY, MS Tissues: A DIGIT AMPUTATION (FIRST METATARSAL RT FOOT) Procedures: TOÑITO, Gross/Micro L4, Decalcification Patient: Solomon Feldman SR [id number] (Continued) Signed (signature on file) Padmini Linn MD 10/05/23 1426 Normal [facility] Laboratory - Chemistry and C hemistry - challengeon 10-02-2023 Albumin [Mass/Vol] 2.1 g/dL Low 3.4-5.0 [facility] ALP [Catalytic activity/Vol] 131 U/L High 46-116 [facility] ALT [Catalytic activity/Vol] 17 U/L 16-63 [facility] AST [Catalytic activity/Vol] 13 U/L Low 15-37 [facility] Bilirubin [Mass/Vol] 0.3 mg/dL 0.2-1.0 [facility] Calcium [Mass/Vol] 6.6 mg/dL Low 8.5-10.1 [facility] Chloride [Moles/Vol] 105 mmol/L 98-107 [facility] CO2 [Moles/Vol] 24.3 mmol/L 21.0-32.0 [facility] Creatinine [Mass/Vol] 1.72 mg/dL High 0.70-1.30 [facility] GFR/1.73 sq M.predicted MDRD (S/P/Bld) [Vol rate/Area] 50 mL/min/{1.73_m2} Low >=60 [facility] Glucose [Mass/Vol] 156 mg/dL High 74-106 [facility] Magnesium [Mass/Vol] 1.5 mg/dL Low 1.8-2.4 [facility] Potassium [Moles/Vol] 4.0 mmol/L 3.5-5.1 [facility] Protein [Mass/Vol] 6.3 g/dL Low 6.4-8.2 [facility] Sodium [Moles/Vol] 139 mmol/L 136-145 [facility] Urea nitrogen [Mass/Vol] 27.0 mg/dL High 7.0-18.0 [facility] Urea nitrogen/Creatinine [Mass ratio] 15.7 mg/mg [facility] Laboratory - Hematology and Cell countson 10-02-2023 Immature granulocytes/100 WBC (Bld) 0.4 % 0.0-0.5 [facility] ESR (Bld) [Velocity] 110 mm/h High <=20 [facility] Laboratory - Microbiology an d Antimicrobial susceptibilityOrdered By: Truman Bryant on 10-02-2023 Microscopic observation Gram stain Nom (Unsp spec) [facility] Leukocytes [#/volume] correc jorge for nucleated erythrocytes in Blood by Automated counon 10-02-2023 WBC corrected for nucl RBC Auto (Bld) [#/Vol] 8.5 10 3/uL 4.0-11.0 [facility] Lymphocytes Auto (Bld) [#/Vo l]on 10-02-2023 Lymphocytes (Bld) [#/Vol] 1.5 10 3/uL 1.2-3.8 [facility] Lymphocytes/100 WBC Auto (Bl d)on 10-02-2023 Lymphocytes/100 WBC (Bld) 17.3 % Low 20.5-60.0 [facility] MCH Auto (RBC) [Entitic mass ]on 10-02-2023 MCH (RBC) [Entitic mass] 22.5 pg Low 25.9-34.0 [facility] MCHC Auto (RBC) [Mass/Vol]on 10-02-2023 MCHC (RBC) [Mass/Vol] 29.9 g/dL 29.9-35.2 [facility] MCV Auto (RBC) [Entitic vol] on 10-02-2023 MCV (RBC) [Entitic vol] 75.2 fL Low 80.0-94.0 [facility] Monocytes Auto (Bld) [#/Vol] on 10-02-2023 Monocytes (Bld) [#/Vol] 0.8 10 3/uL 0.3-0.8 [facility] Monocytes/100 WBC Auto (Bld) on 10-02-2023 Monocytes/100 WBC (Bld) 9.1 % 1.7-12.0 [facility] Neutrophils Auto (Bld) [#/Vo l]on 10-02-2023 Neutrophils (Bld) [#/Vol] 6.0 10 3/uL 1.4-6.5 [facility] Neutrophils/100 WBC Auto (Bl d)on 10-02-2023 Neutrophils/100 WBC (Bld) 70.6 % 43.0-75.0 [facility] No Panel Informationon 10-01 Eosinophils # (Auto) 0.2 10 3/uL 0.0-0.7 [facility] Immature Granulocyte # (Auto) 0.03 10 3/uL 0.00-0.03 [facility] Fungal Smear Result [facility] Miscellaneous Test Comment See comment [facility] Comment on above: Specimen Source: JNOO TRT - Foot Right - Foot Rt - 604.000 No Panel InformationOrdered By: Truman Bryant on 10-02-2023 Tissue Culture [facility] No Panel InformationOrdered By: Paula Elias on 10-02-2023 Acid Fast Smear [facility] AFB Specimen Processing [facility] Platelet mean volume Auto (B ld) [Entitic vol]on 10-02-2023 Platelet mean volume (Bld) [Entitic vol] 10.6 fL 9.5-13.5 [facility] Platelets Auto (Bld) [#/Vol] on 10-02-2023 Platelets (Bld) [#/Vol] 142 10 3/uL Low 150-450 [facility] RBC Auto (Bld) [#/Vol]on RBC (Bld) [#/Vol] 3.47 10 6/uL Low 4.70-6.10 [facility] Serum or plasma albumin/glob ulin mass ratioon 10-02-2023 Albumin/Globulin [Mass ratio] 0.5 {ratio} [facility] Serum or plasma anion gap de terminationon 10-02-2023 Anion gap [Moles/Vol] 13.7 mmol/L [facility] Basophils Auto (Bld) [#/Vol] on 10-01-2023 Basophils (Bld) [#/Vol] 0.0 10 3/uL 0.0-0.1 [facility] Basophils/100 WBC Auto (Bld) on 10-01-2023 Basophils/100 WBC (Bld) 0.4 % 0.2-2.0 [facility] Eosinophils/100 WBC Auto (Bl d)on 10-01-2023 Eosinophils/100 WBC (Bld) 1.7 % 0.9-7.0 [facility] Erythrocyte distribution wid th Auto (RBC) [Ratio]on 10-01-2023 Erythrocyte distribution width (RBC) [Ratio] 18.5 % High 11.0-15.0 [facility] Estimated glomerular filtrat ion rate (GFR) non- Americanon 10-01-2023 GFR/1.73 sq M.predicted among non-blacks MDRD (S/P/Bld) [Vol rate/Area] 27 mL/min/{1.73_m2} Low >=60 [facility] Globulin Calc (S) [Mass/Vol] on 10-01-2023 Globulin (S) [Mass/Vol] 4.0 g/dL [facility] Hematocrit Auto (Bld) [Volum e fraction]on 10-01-2023 Hematocrit (Bld) [Volume fraction] 26.5 % Low 42.0-54.0 [facility] Hemoglobin [Mass/volume] in Bloodon 10-01-2023 Hemoglobin (Bld) [Mass/Vol] 8.0 g/dL Low 14.0-18.0 [facility] Laboratory - Chemistry and C hemistry - challengeon 10-01-2023 Lactate [Moles/Vol] 1.8 mmol/L 0.4-2.0 [facility] Albumin [Mass/Vol] 1.9 g/dL Low 3.4-5.0 [facility] ALP [Catalytic activity/Vol] 113 U/L 46-116 [facility] ALT [Catalytic activity/Vol] 17 U/L 16-63 [facility] AST [Catalytic activity/Vol] 14 U/L Low 15-37 [facility] Bilirubin [Mass/Vol] 0.3 mg/dL 0.2-1.0 [facility] Calcium [Mass/Vol] 5.7 mg/dL Low 8.5-10.1 [facility] Comment on above: RESULTS CALLED TO Patricio Genao(RN)@BY Marybel Hawkins MLT at 0619 Chloride [Moles/Vol] 102 mmol/L 98-107 [facility] CO2 [Moles/Vol] 20.4 mmol/L Low 21.0-32.0 [facility] Creatinine [Mass/Vol] 2.46 mg/dL High 0.70-1.30 [facility] GFR/1.73 sq M.predicted MDRD (S/P/Bld) [Vol rate/Area] 33 mL/min/{1.73_m2} Low >=60 [facility] Glucose [Mass/Vol] 67 mg/dL Low 74-106 [facility] Magnesium [Mass/Vol] 0.8 mg/dL Low 1.8-2.4 [facility] Comment on above: RESULTS CALLED TO Patricio Genao (RN)@BY [address] at 0601 Potassium [Moles/Vol] 3.1 mmol/L Low 3.5-5.1 [facility] Protein [Mass/Vol] 5.9 g/dL Low 6.4-8.2 [facility] Sodium [Moles/Vol] 138 mmol/L 136-145 [facility] [facility] Urea nitrogen [Mass/Vol] 28.0 mg/dL High 7.0-18.0 [facility] Urea nitrogen/Creatinine [Mass ratio] 11.4 mg/mg [facility] Laboratory - Hematology and Cell countson 10-01-2023 ESR (Bld) [Velocity] 96 mm/h High <=20 [facility] Immature granulocytes/100 WBC (Bld) 0.6 % High 0.0-0.5 [facility] Leukocytes [#/volume] correc jorge for nucleated erythrocytes in Blood by Automated counon 10-01-2023 WBC corrected for nucl RBC Auto (Bld) [#/Vol] 10.0 10 3/uL 4.0-11.0 [facility] Lymphocytes Auto (Bld) [#/Vo l]on 10-01-2023 Lymphocytes (Bld) [#/Vol] 1.3 10 3/uL 1.2-3.8 [facility] Lymphocytes/100 WBC Auto (Bl d)on 10-01-2023 Lymphocytes/100 WBC (Bld) 12.8 % Low 20.5-60.0 [facility] MCH Auto (RBC) [Entitic mass ]on 10-01-2023 MCH (RBC) [Entitic mass] 22.4 pg Low 25.9-34.0 [facility] MCHC Auto (RBC) [Mass/Vol]on 10-01-2023 MCHC (RBC) [Mass/Vol] 30.2 g/dL 29.9-35.2 [facility] MCV Auto (RBC) [Entitic vol] on 10-01-2023 MCV (RBC) [Entitic vol] 74.2 fL Low 80.0-94.0 [facility] Monocytes Auto (Bld) [#/Vol] on 10-01-2023 Monocytes (Bld) [#/Vol] 0.7 10 3/uL 0.3-0.8 [facility] Monocytes/100 WBC Auto (Bld) on 10-01-2023 Monocytes/100 WBC (Bld) 6.9 % 1.7-12.0 [facility] Neutrophils Auto (Bld) [#/Vo l]on 10-01-2023 Neutrophils (Bld) [#/Vol] 7.8 10 3/uL High 1.4-6.5 [facility] Neutrophils/100 WBC Auto (Bl d)on 10-01-2023 Neutrophils/100 WBC (Bld) 77.6 % High 43.0-75.0 [facility] No Panel Informationon 09-30 C-Reactive Protein, Quantitative 10.58 mg/dL High <=0.50 [facility] Eosinophils # (Auto) 0.2 10 3/uL 0.0-0.7 [facility] Immature Granulocyte # (Auto) 0.06 10 3/uL High 0.00-0.03 [facility] Troponin I High Sensitivity 8.3 pg/mL 4.0-76.1 [facility] Comment on above: CUT-OFF POINTS HAVE BEEN [...] Partial Pressure CO2 30.4 mm[Hg] Low 40.0-52.0 [facility] Venous Blood pH 7.421 7.330-7.43 0 [facility] Platelet mean volume Auto (B ld) [Entitic vol]on 10-01-2023 Platelet mean volume (Bld) [Entitic vol] 11.2 fL 9.5-13.5 [facility] Platelets Auto (Bld) [#/Vol] on 10-01-2023 Platelets (Bld) [#/Vol] 164 10 3/uL 150-450 [facility] RBC Auto (Bld) [#/Vol]on RBC (Bld) [#/Vol] 3.57 10 6/uL Low 4.70-6.10 [facility] Serum or plasma albumin/glob ulin mass ratioon 10-01-2023 Albumin/Globulin [Mass ratio] 0.5 {ratio} [facility] Serum or plasma anion gap de terminationon 10-01-2023 Anion gap [Moles/Vol] 18.7 mmol/L [facility] Automated epithelial cells c ount in urine sediment (number/area)on 09-30-2023 Epithelial cells Auto (Urine sed) [#/Area] NONE SEEN #/LPF NONE/RARE [facility] Automated leukocytes count i n urine sediment (number/area)on 09-30-2023 WBC Auto (Urine sed) [#/Area] NONE SEEN #/HPF 0-2 [facility] Automated urine specific gra vity by refractometryon 09-30-2023 Specific gravity Refractometry automated (U) [Rel density] <=1.005 Abnormal 1.005-1.02 5 [facility] Basophils Auto (Bld) [#/Vol] on 09-30-2023 Basophils (Bld) [#/Vol] 0.1 10 3/uL 0.0-0.1 [facility] Basophils/100 WBC Auto (Bld) on 09-30-2023 Basophils/100 WBC (Bld) 0.4 % 0.2-2.0 [facility] Bilirubin Auto test strip (U ) [Mass/Vol]on 09-30-2023 Bilirubin (U) [Mass/Vol] Negative NEGATIVE [facility] Casts typing in urine sedime nt by light microscopyon 09-30-2023 Casts LM Nom (Urine sed) NONE SEEN #/LPF NONE SEEN [facility] Color Auto (U)on 09-30-2023 Color (U) LT. YELLOW YELLOW [facility] Eosinophils/100 WBC Auto (Bl d)on 09-30-2023 Eosinophils/100 WBC (Bld) 1.4 % 0.9-7.0 [facility] Erythrocyte distribution wid th Auto (RBC) [Ratio]on 09-30-2023 Erythrocyte distribution width (RBC) [Ratio] 19.0 % High 11.0-15.0 [facility] Estimated glomerular filtrat ion rate (GFR) non- Americanon 09-30-2023 GFR/1.73 sq M.predicted among non-blacks MDRD (S/P/Bld) [Vol rate/Area] 19 mL/min/{1.73_m2} Low >=60 [facility] Globulin Calc (S) [Mass/Vol] on 09-30-2023 Globulin (S) [Mass/Vol] 4.8 g/dL [facility] Hematocrit Auto (Bld) [Volum e fraction]on 09-30-2023 Hematocrit (Bld) [Volume fraction] 32.9 % Low 42.0-54.0 [facility] Hemoglobin [Mass/volume] in Bloodon 09-30-2023 Hemoglobin (Bld) [Mass/Vol] 10.0 g/dL Low 14.0-18.0 [facility] INR in Platelet poor plasma by Coagulation assayon 09-30-2023 INR Coag (PPP) [Relative time] 1.23 {INR} [facility] Comment on above: DESIRED INR:2.0-3.0 CONDITIONS NOT LISTED BELOW2.5-3.5 FOR PROSTHETIC HEART VALVE REPLACEMENT2.5-3.5 RECURRENT THROMBOSIS Ketones Auto test strip (U) [Mass/Vol]on 09-30-2023 Ketones (U) [Mass/Vol] Negative NEGATIVE Fi [facility] Laboratory - Chemistry and C hemistry - challengeon 09-30-2023 Lactate [Moles/Vol] 4.2 mmol/L High 0.4-2.0 [facility] Comment on above: RESULTS CALLED TO Patricio Genao (RN)@BY [address] at 2312 Albumin [Mass/Vol] 2.4 g/dL Low 3.4-5.0 [facility] ALP [Catalytic activity/Vol] 145 U/L High 46-116 [facility] ALT [Catalytic activity/Vol] 17 U/L 16-63 [facility] AST [Catalytic activity/Vol] 21 U/L 15-37 [facility] Bilirubin [Mass/Vol] 0.4 mg/dL 0.2-1.0 [facility] Calcium [Mass/Vol] 5.8 mg/dL Low 8.5-10.1 [facility] Comment on above: RESULTS CALLED TO GIOVANNA CASTANON @BY Verona Hanson at 1645 Chloride [Moles/Vol] 97 mmol/L Low 98-107 [facility] CO2 [Moles/Vol] 18.3 mmol/L Low 21.0-32.0 [facility] Creatinine [Mass/Vol] 3.43 mg/dL High 0.70-1.30 [facility] GFR/1.73 sq M.predicted MDRD (S/P/Bld) [Vol rate/Area] 22 mL/min/{1.73_m2} Low >=60 [facility] Glucose [Mass/Vol] 208 mg/dL High 74-106 [facility] Magnesium [Mass/Vol] 0.5 mg/dL Low 1.8-2.4 [facility] Comment on above: RESULTS CALLED TO Giovanna Morleyey @BY Marybel Hawkins, TORCH [employer]TER [id number] Natriuretic peptide B (Bld) [Mass/Vol] 611.0 pg/mL <=900.0 [facility] Potassium [Moles/Vol] 3.9 mmol/L 3.5-5.1 [facility] Protein [Mass/Vol] 7.2 g/dL 6.4-8.2 [facility] Sodium [Moles/Vol] 137 mmol/L 136-145 [facility] Urea nitrogen [Mass/Vol] 34.0 mg/dL High 7.0-18.0 [facility] Urea nitrogen/Creatinine [Mass ratio] 9.9 mg/mg [facility] Laboratory - Hematology and Cell countson 09-30-2023 ESR (Bld) [Velocity] 130 mm/h High <=20 [facility] Immature granulocytes/100 WBC (Bld) 0.6 % High 0.0-0.5 [facility] Leukocytes [#/volume] correc jorge for nucleated erythrocytes in Blood by Automated counon 09-30-2023 WBC corrected for nucl RBC Auto (Bld) [#/Vol] 13.9 10 3/uL High 4.0-11.0 [facility] Lymphocytes Auto (Bld) [#/Vo l]on 09-30-2023 Lymphocytes (Bld) [#/Vol] 1.4 10 3/uL 1.2-3.8 [facility] Lymphocytes/100 WBC Auto (Bl d)on 09-30-2023 Lymphocytes/100 WBC (Bld) 10.1 % Low 20.5-60.0 [facility] MCH Auto (RBC) [Entitic mass ]on 09-30-2023 MCH (RBC) [Entitic mass] 22.7 pg Low 25.9-34.0 [facility] MCHC Auto (RBC) [Mass/Vol]on 09-30-2023 MCHC (RBC) [Mass/Vol] 30.4 g/dL 29.9-35.2 [facility] MCV Auto (RBC) [Entitic vol] on 09-30-2023 MCV (RBC) [Entitic vol] 74.6 fL Low 80.0-94.0 [facility] Monocytes Auto (Bld) [#/Vol] on 09-30-2023 Monocytes (Bld) [#/Vol] 0.9 10 3/uL High 0.3-0.8 [facility] Monocytes/100 WBC Auto (Bld) on 09-30-2023 Monocytes/100 WBC (Bld) 6.7 % 1.7-12.0 [facility] Mucus LM Ql (Urine sed)on Mucus Ql (Urine sed) NONE SEEN NONE SEEN [facility] Neutrophils Auto (Bld) [#/Vo l]on 09-30-2023 Neutrophils (Bld) [#/Vol] 11.2 10 3/uL High 1.4-6.5 [facility] Neutrophils/100 WBC Auto (Bl d)on 09-30-2023 Neutrophils/100 WBC (Bld) 80.8 % High 43.0-75.0 [facility] No Panel Informationon 09-29 Troponin I High Sensitivity 7.9 pg/mL 4.0-76.1 [facility] Comment on above: CUT-OFF POINTS HAVE BEEN [...] Partial Pressure CO2 29.6 mm[Hg] Low 40.0-52.0 [facility] Venous Blood pH 7.405 7.330-7.43 0 [facility] Urine Culture Reflexed NO [facility] C-Reactive Protein, Quantitative 14.76 mg/dL High <=0.50 [facility] Eosinophils # (Auto) 0.2 10 3/uL 0.0-0.7 [facility] Immature Granulocyte # (Auto) 0.09 10 3/uL High 0.00-0.03 [facility] No Panel InformationOrdered By: Chandrika Castanon on 09-30-2023 Blood Culture 2 [facility] Wound Culture [facility] Blood Culture 1 [facility] Platelet mean volume Auto (B ld) [Entitic vol]on 09-30-2023 Platelet mean volume (Bld) [Entitic vol] 10.9 fL 9.5-13.5 [facility] Platelets Auto (Bld) [#/Vol] on 09-30-2023 Platelets (Bld) [#/Vol] 227 10 3/uL 150-450 [facility] Protein Auto test strip (U) [Mass/Vol]on 09-30-2023 Protein (U) [Mass/Vol] Negative NEG/TRACE [facility] Prothrombin time (PT)on 09-04 PT Coag (PPP) [Time] 12.9 s High 9.0-11.6 [facility] RBC Auto (Bld) [#/Vol]on RBC (Bld) [#/Vol] 4.41 10 6/uL Low 4.70-6.10 [facility] Serum or plasma albumin/glob ulin mass ratioon 09-30-2023 Albumin/Globulin [Mass ratio] 0.5 {ratio} [facility] Serum or plasma anion gap de terminationon 09-30-2023 Anion gap [Moles/Vol] 25.6 mmol/L [facility] Specific gravity Auto test s trip (U) [Rel density]on 09-30-2023 Specific gravity (U) [Rel density] CLEAR CLEAR [facility] Urine bacteria detection by automated methodon 09-30-2023 Bacteria Auto Ql (U) NONE SEEN #/HPF NONE SEEN [facility] Urine glucose measurement by test strip (mass/volume)on 09-30-2023 Glucose Test strip (U) [Mass/Vol] 500 mg/dL Abnormal NEGATIVE [facility] Urine hemoglobin detection b y automated test stripon 09-30-2023 Hemoglobin Auto test strip Ql (U) TRACE-I NEGATIVE [facility] Urine nitrite detection by a utomated test stripon 09-30-2023 Nitrite Auto test strip Ql (U) Negative NEGATIVE [facility] Urine sediment crystal ident ification by light microscopyon 09-30-2023 Crystals LM Nom (Urine sed) None Seen #/HPF None Seen [facility] Urine sediment leukocyte cou nt by microscopy (number/high power field)on 09-30-2023 WBC LM.HPF (Urine sed) [#/Area] NONE SEEN #/HPF NONE SEEN [facility] Urobilinogen Auto test strip (U) [Mass/Vol]on 09-30-2023 Urobilinogen Qn (U) 0.2 {Brendan'U}/dL 0.2-1.0 [facility] pH Auto test strip (U)on pH (U) 5.5 [pH] 5.0-9.0 [facility] Guy 09-21-2023 L Specimen: [id number] Received: 09/21/23 Status: COLTON Nath Num: [id number] Spec Type: Surgical Subm Dr: Paula Elias DPM, MS Tissues: A Bone Fragments - Other than Path Fracture Procedures: HE, Gross/Micro L3, Decalcification Age/ Patient Sex Location Account Attending Physician Solomon Feldman SR 58/M LABELL [id number] Paula Elias DPM, MS SPEC NUM: [id number] RECD: 09/21/23 STATUS: COLTON YAPLinda NUM: [id number] SHAKIRA: 09/21/[address]: Paula Elias DPM, MS ENTERED: 09/21/[address] [facility] [address]: SPEC TYPE: Surgical DEPT: RAMSEY MARCANO ENTERED BY: [id number] RECV BY: [id number] ORDERED: HE, Gross/Micro L3, Decalcification ORDERED: HE, [...] excisional debridement with skin substitute. CPT Codes 88825, 67802 Specimen: [id number] Received: 09/21/23 Status: COLTON Nath Num: [id number] Spec Type: Surgical Subm Dr: Paula Elias DPM, MS Tissues: A Bone Fragments - Other than Path Fracture Procedures: Pham LAWSON/Joana L3, Decalcification Patient: Solomon Feldman SR [id number] (Continued) Signed (signature on file) Victor Hugo Sotelo MD 09/26/23 0843 Normal [facility] Laboratory - Microbiology an d Antimicrobial susceptibilityOrdered By: Jenaro Lynch on 09-21-2023 Microscopic observation Gram stain Nom (Unsp spec) [facility] Activated partial thrombopla stin time (aPTT) in platelet poor plasma by coagulation aon 09-18-2023 aPTT Coag (PPP) [Time] 32.0 s 22.3-36.2 [facility] Basophils Auto (Bld) [#/Vol] on 09-18-2023 Basophils (Bld) [#/Vol] 0.1 10 3/uL 0.0-0.1 [facility] Basophils/100 WBC Auto (Bld) on 09-18-2023 Basophils/100 WBC (Bld) 0.9 % 0.2-2.0 [facility] Eosinophils/100 WBC Auto (Bl d)on 09-18-2023 Eosinophils/100 WBC (Bld) 2.3 % 0.9-7.0 [facility] Erythrocyte distribution wid th Auto (RBC) [Ratio]on 09-18-2023 Erythrocyte distribution width (RBC) [Ratio] 18.8 % High 11.0-15.0 [facility] Estimated glomerular filtrat ion rate (GFR) non- Americanon 09-18-2023 GFR/1.73 sq M.predicted among non-blacks MDRD (S/P/Bld) [Vol rate/Area] 27 mL/min/{1.73_m2} Low >=60 [facility] Hematocrit Auto (Bld) [Volum e fraction]on 09-18-2023 Hematocrit (Bld) [Volume fraction] 35.0 % Low 42.0-54.0 [facility] Hemoglobin [Mass/volume] in Bloodon 09-18-2023 Hemoglobin (Bld) [Mass/Vol] 10.3 g/dL Low 14.0-18.0 [facility] INR in Platelet poor plasma by Coagulation assayon 09-18-2023 INR Coag (PPP) [Relative time] 1.08 {INR} [facility] Comment on above: DESIRED INR:2.0-3.0 CONDITIONS NOT LISTED BELOW2.5-3.5 FOR PROSTHETIC HEART VALVE REPLACEMENT2.5-3.5 RECURRENT THROMBOSIS Laboratory - Chemistry and C hemistry - challengeon 09-18-2023 Calcium [Mass/Vol] 8.9 mg/dL 8.5-10.1 [facility] Chloride [Moles/Vol] 97 mmol/L Low 98-107 [facility] CO2 [Moles/Vol] 28.2 mmol/L 21.0-32.0 [facility] Creatinine [Mass/Vol] 2.47 mg/dL High 0.70-1.30 [facility] GFR/1.73 sq M.predicted MDRD (S/P/Bld) [Vol rate/Area] 33 mL/min/{1.73_m2} Low >=60 [facility] Glucose [Mass/Vol] 200 mg/dL High 74-106 [facility] Potassium [Moles/Vol] 3.7 mmol/L 3.5-5.1 [facility] Sodium [Moles/Vol] 137 mmol/L 136-145 [facility] Urea nitrogen [Mass/Vol] 23.0 mg/dL High 7.0-18.0 [facility] Urea nitrogen/Creatinine [Mass ratio] 9.3 mg/mg [facility] Laboratory - Hematology and Cell countson 09-18-2023 Immature granulocytes/100 WBC (Bld) 0.6 % High 0.0-0.5 [facility] Leukocytes [#/volume] correc jorge for nucleated erythrocytes in Blood by Automated counon 09-18-2023 WBC corrected for nucl RBC Auto (Bld) [#/Vol] 12.4 10 3/uL High 4.0-11.0 [facility] Lymphocytes Auto (Bld) [#/Vo l]on 09-18-2023 Lymphocytes (Bld) [#/Vol] 2.4 10 3/uL 1.2-3.8 [facility] Lymphocytes/100 WBC Auto (Bl d)on 09-18-2023 Lymphocytes/100 WBC (Bld) 19.6 % Low 20.5-60.0 [facility] MCH Auto (RBC) [Entitic mass ]on 09-18-2023 MCH (RBC) [Entitic mass] 22.2 pg Low 25.9-34.0 [facility] MCHC Auto (RBC) [Mass/Vol]on 09-18-2023 MCHC (RBC) [Mass/Vol] 29.4 g/dL Low 29.9-35.2 [facility] MCV Auto (RBC) [Entitic vol] on 09-18-2023 MCV (RBC) [Entitic vol] 75.3 fL Low 80.0-94.0 [facility] Monocytes Auto (Bld) [#/Vol] on 09-18-2023 Monocytes (Bld) [#/Vol] 1.2 10 3/uL High 0.3-0.8 [facility] Monocytes/100 WBC Auto (Bld) on 09-18-2023 Monocytes/100 WBC (Bld) 10.0 % 1.7-12.0 [facility] Neutrophils Auto (Bld) [#/Vo l]on 09-18-2023 Neutrophils (Bld) [#/Vol] 8.2 10 3/uL High 1.4-6.5 [facility] Neutrophils/100 WBC Auto (Bl d)on 09-18-2023 Neutrophils/100 WBC (Bld) 66.6 % 43.0-75.0 [facility] No Panel Informationon 09-17 Eosinophils # (Auto) 0.3 10 3/uL 0.0-0.7 [facility] Immature Granulocyte # (Auto) 0.07 10 3/uL High 0.00-0.03 [facility] Platelet mean volume Auto (B ld) [Entitic vol]on 09-18-2023 Platelet mean volume (Bld) [Entitic vol] 10.9 fL 9.5-13.5 [facility] Platelets Auto (Bld) [#/Vol] on 09-18-2023 Platelets (Bld) [#/Vol] 300 10 3/uL 150-450 [facility] Prothrombin time (PT)on 09-03 PT Coag (PPP) [Time] 11.4 s 9.0-11.6 [facility] RBC Auto (Bld) [#/Vol]on RBC (Bld) [#/Vol] 4.65 10 6/uL Low 4.70-6.10 [facility] Serum or plasma anion gap de terminationon 09-18-2023 Anion gap [Moles/Vol] 15.5 mmol/L [facility] - Microbiology an d Antimicrobial susceptibilityOrdered By: Jenaro Lynch on 08-10-2023 Microscopic observation Gram stain Nom (Unsp spec) [facility] No Panel Informationon 08-09 Fungal Smear Result [facility] Miscellaneous Test Comment See comment [facility] Comment on above: Specimen Source: JONO TRT - Foot Right - Foot Rt - [id number] No Panel InformationOrdered By: Jenaro Lynch on 08-10-2023 Acid Fast Culture [facility] Acid Fast Smear [facility] AFB Specimen Processing [facility] Tissue Culture [facility] Basophils Auto (Bld) [#/Vol] on 08-07-2023 Basophils (Bld) [#/Vol] 0.1 10 3/uL 0.0-0.1 [facility] Basophils/100 WBC Auto (Bld) on 08-07-2023 Basophils/100 WBC (Bld) 0.7 % 0.2-2.0 [facility] Eosinophils/100 WBC Auto (Bl d)on 08-07-2023 Eosinophils/100 WBC (Bld) 3.9 % 0.9-7.0 [facility] Erythrocyte distribution wid th Auto (RBC) [Ratio]on 08-07-2023 Erythrocyte distribution width (RBC) [Ratio] 16.9 % 11.0-15.0 [facility] Estimated glomerular filtrat ion rate (GFR) non- Americanon 08-07-2023 GFR/1.73 sq M.predicted among non-blacks MDRD (S/P/Bld) [Vol rate/Area] 42 mL/min/{1.73_m2} >=60 [facility] Globulin Calc (S) [Mass/Vol] on 08-07-2023 Globulin (S) [Mass/Vol] 4.0 g/dL [facility] Hematocrit Auto (Bld) [Volum e fraction]on 08-07-2023 Hematocrit (Bld) [Volume fraction] 31.5 % 42.0-54.0 [facility] Hemoglobin [Mass/volume] in Bloodon 08-07-2023 Hemoglobin (Bld) [Mass/Vol] 9.4 g/dL 14.0-18.0 [facility] Laboratory - Chemistry and C hemistry - challengeon 08-07-2023 Albumin [Mass/Vol] 2.1 g/dL 3.4-5.0 [facility] ALP [Catalytic activity/Vol] 144 U/L 46-116 [facility] ALT [Catalytic activity/Vol] 21 U/L 16-63 [facility] AST [Catalytic activity/Vol] 25 U/L 15-37 [facility] Bilirubin [Mass/Vol] 0.4 mg/dL 0.2-1.0 [facility] Calcium [Mass/Vol] 8.1 mg/dL 8.5-10.1 [facility] Chloride [Moles/Vol] 102 mmol/L 98-107 [facility] CO2 [Moles/Vol] 24.7 mmol/L 21.0-32.0 [facility] Creatinine [Mass/Vol] 1.70 mg/dL 0.70-1.30 [facility] GFR/1.73 sq M.predicted MDRD (S/P/Bld) [Vol rate/Area] 50 mL/min/{1.73_m2} >=60 [facility] Glucose [Mass/Vol] 188 mg/dL 74-106 [facility] Potassium [Moles/Vol] 4.6 mmol/L 3.5-5.1 [facility] Protein [Mass/Vol] 6.1 g/dL 6.4-8.2 [facility] Sodium [Moles/Vol] 135 mmol/L 136-145 [facility] Urea nitrogen [Mass/Vol] 33.0 mg/dL 7.0-18.0 [facility] Urea nitrogen/Creatinine [Mass ratio] 19.4 mg/mg [facility] Laboratory - Hematology and Cell countson 08-07-2023 Immature granulocytes/100 WBC (Bld) 0.7 % 0.0-0.5 [facility] Leukocytes [#/volume] correc jorge for nucleated erythrocytes in Blood by Automated counon 08-07-2023 WBC corrected for nucl RBC Auto (Bld) [#/Vol] 12.0 10 3/uL 4.0-11.0 [facility] Lymphocytes Auto (Bld) [#/Vo l]on 08-07-2023 Lymphocytes (Bld) [#/Vol] 1.5 10 3/uL 1.2-3.8 [facility] Lymphocytes/100 WBC Auto (Bl d)on 08-07-2023 Lymphocytes/100 WBC (Bld) 12.4 % 20.5-60.0 [facility] MCH Auto (RBC) [Entitic mass ]on 08-07-2023 MCH (RBC) [Entitic mass] 22.5 pg 25.9-34.0 [facility] MCHC Auto (RBC) [Mass/Vol]on 08-07-2023 MCHC (RBC) [Mass/Vol] 29.8 g/dL 29.9-35.2 [facility] MCV Auto (RBC) [Entitic vol] on 08-07-2023 MCV (RBC) [Entitic vol] 75.4 fL 80.0-94.0 [facility] Monocytes Auto (Bld) [#/Vol] on 08-07-2023 Monocytes (Bld) [#/Vol] 1.2 10 3/uL 0.3-0.8 [facility] Monocytes/100 WBC Auto (Bld) on 08-07-2023 Monocytes/100 WBC (Bld) 10.1 % 1.7-12.0 [facility] Neutrophils Auto (Bld) [#/Vo l]on 08-07-2023 Neutrophils (Bld) [#/Vol] 8.7 10 3/uL 1.4-6.5 [facility] Neutrophils/100 WBC Auto (Bl d)on 08-07-2023 Neutrophils/100 WBC (Bld) 72.2 % 43.0-75.0 [facility] No Panel Informationon 08-06 Eosinophils # (Auto) 0.5 10 3/uL 0.0-0.7 [facility] Immature Granulocyte # (Auto) 0.09 10 3/uL 0.00-0.03 [facility] Platelet mean volume Auto (B ld) [Entitic vol]on 08-07-2023 Platelet mean volume (Bld) [Entitic vol] 11.7 fL 9.5-13.5 [facility] Platelets Auto (Bld) [#/Vol] on 08-07-2023 Platelets (Bld) [#/Vol] 222 10 3/uL 150-450 [facility] RBC Auto (Bld) [#/Vol]on RBC (Bld) [#/Vol] 4.18 10 6/uL 4.70-6.10 [facility] Serum or plasma albumin/glob ulin mass ratioon 08-07-2023 Albumin/Globulin [Mass ratio] 0.5 {ratio} [facility] Serum or plasma anion gap de terminationon 08-07-2023 Anion gap [Moles/Vol] 12.9 mmol/L [facility] Basophils Auto (Bld) [#/Vol] on 08-06-2023 Basophils (Bld) [#/Vol] 0.1 10 3/uL 0.0-0.1 [facility] Basophils/100 WBC Auto (Bld) on 08-06-2023 Basophils/100 WBC (Bld) 0.7 % 0.2-2.0 [facility] Eosinophils/100 WBC Auto (Bl d)on 08-06-2023 Eosinophils/100 WBC (Bld) 3.3 % 0.9-7.0 [facility] Erythrocyte distribution wid th Auto (RBC) [Ratio]on 08-06-2023 Erythrocyte distribution width (RBC) [Ratio] 17.0 % 11.0-15.0 [facility] Estimated glomerular filtrat ion rate (GFR) non- Americanon 08-06-2023 GFR/1.73 sq M.predicted among non-blacks MDRD (S/P/Bld) [Vol rate/Area] 36 mL/min/{1.73_m2} >=60 [facility] Globulin Calc (S) [Mass/Vol] on 08-06-2023 Globulin (S) [Mass/Vol] 4.0 g/dL [facility] Hematocrit Auto (Bld) [Volum e fraction]on 08-06-2023 Hematocrit (Bld) [Volume fraction] 30.1 % 42.0-54.0 [facility] Hemoglobin [Mass/volume] in Bloodon 08-06-2023 Hemoglobin (Bld) [Mass/Vol] 8.8 g/dL 14.0-18.0 [facility] Laboratory - Chemistry and C hemistry - challengeon 08-06-2023 Albumin [Mass/Vol] 2.0 g/dL 3.4-5.0 [facility] ALP [Catalytic activity/Vol] 127 U/L 46-116 [facility] ALT [Catalytic activity/Vol] 14 U/L 16-63 [facility] AST [Catalytic activity/Vol] 16 U/L 15-37 [facility] Bilirubin [Mass/Vol] 0.4 mg/dL 0.2-1.0 [facility] Calcium [Mass/Vol] 7.9 mg/dL 8.5-10.1 [facility] Chloride [Moles/Vol] 99 mmol/L 98-107 [facility] CO2 [Moles/Vol] 25.0 mmol/L 21.0-32.0 [facility] Creatinine [Mass/Vol] 1.95 mg/dL 0.70-1.30 [facility] GFR/1.73 sq M.predicted MDRD (S/P/Bld) [Vol rate/Area] 43 mL/min/{1.73_m2} >=60 [facility] Glucose [Mass/Vol] 297 mg/dL 74-106 [facility] Potassium [Moles/Vol] 4.4 mmol/L 3.5-5.1 [facility] Protein [Mass/Vol] 6.0 g/dL 6.4-8.2 [facility] Sodium [Moles/Vol] 133 mmol/L 136-145 [facility] Urea nitrogen [Mass/Vol] 28.0 mg/dL 7.0-18.0 [facility] Urea nitrogen/Creatinine [Mass ratio] 14.4 mg/mg [facility] Laboratory - Hematology and Cell countson 08-06-2023 Immature granulocytes/100 WBC (Bld) 0.4 % 0.0-0.5 [facility] Leukocytes [#/volume] correc jorge for nucleated erythrocytes in Blood by Automated counon 08-06-2023 WBC corrected for nucl RBC Auto (Bld) [#/Vol] 10.1 10 3/uL 4.0-11.0 [facility] Lymphocytes Auto (Bld) [#/Vo l]on 08-06-2023 Lymphocytes (Bld) [#/Vol] 1.5 10 3/uL 1.2-3.8 [facility] Lymphocytes/100 WBC Auto (Bl d)on 08-06-2023 Lymphocytes/100 WBC (Bld) 14.4 % 20.5-60.0 [facility] MCH Auto (RBC) [Entitic mass ]on 08-06-2023 MCH (RBC) [Entitic mass] 22.5 pg 25.9-34.0 [facility] MCHC Auto (RBC) [Mass/Vol]on 08-06-2023 MCHC (RBC) [Mass/Vol] 29.2 g/dL 29.9-35.2 [facility] MCV Auto (RBC) [Entitic vol] on 08-06-2023 MCV (RBC) [Entitic vol] 77.0 fL 80.0-94.0 [facility] Monocytes Auto (Bld) [#/Vol] on 08-06-2023 Monocytes (Bld) [#/Vol] 1.1 10 3/uL 0.3-0.8 [facility] Monocytes/100 WBC Auto (Bld) on 08-06-2023 Monocytes/100 WBC (Bld) 10.4 % 1.7-12.0 [facility] Neutrophils Auto (Bld) [#/Vo l]on 08-06-2023 Neutrophils (Bld) [#/Vol] 7.2 10 3/uL 1.4-6.5 [facility] Neutrophils/100 WBC Auto (Bl d)on 08-06-2023 Neutrophils/100 WBC (Bld) 70.8 % 43.0-75.0 [facility] No Panel Informationon 08-05 Vancomycin Level Trough 13.6 ug/mL 5.0-20.0 [facility] Eosinophils # (Auto) 0.3 10 3/uL 0.0-0.7 [facility] Immature Granulocyte # (Auto) 0.04 10 3/uL 0.00-0.03 [facility] Platelet mean volume Auto (B ld) [Entitic vol]on 08-06-2023 Platelet mean volume (Bld) [Entitic vol] 12.2 fL 9.5-13.5 [facility] Platelets Auto (Bld) [#/Vol] on 08-06-2023 Platelets (Bld) [#/Vol] 190 10 3/uL 150-450 [facility] RBC Auto (Bld) [#/Vol]on RBC (Bld) [#/Vol] 3.91 10 6/uL 4.70-6.10 [facility] Serum or plasma albumin/glob ulin mass ratioon 08-06-2023 Albumin/Globulin [Mass ratio] 0.5 {ratio} [facility] Serum or plasma anion gap de terminationon 08-06-2023 Anion gap [Moles/Vol] 13.4 mmol/L Fi [facility] Automated epithelial cells c ount in urine sediment (number/area)on 08-05-2023 Epithelial cells Auto (Urine sed) [#/Area] RARE #/LPF NONE/RARE [facility] Automated leukocytes count i n urine sediment (number/area)on 08-05-2023 WBC Auto (Urine sed) [#/Area] NONE SEEN #/HPF 0-2 [facility] Automated urine specific gra vity by refractometryon 08-05-2023 Specific gravity Refractometry automated (U) [Rel density] <=1.005 1.005-1.02 5 [facility] Basophils Auto (Bld) [#/Vol] on 08-05-2023 Basophils (Bld) [#/Vol] 0.1 10 3/uL 0.0-0.1 [facility] Basophils/100 WBC Auto (Bld) on 08-05-2023 Basophils/100 WBC (Bld) 0.7 % 0.2-2.0 [facility] Bilirubin Auto test strip (U ) [Mass/Vol]on 08-05-2023 Bilirubin (U) [Mass/Vol] Negative NEGATIVE [facility] Casts typing in urine sedime nt by light microscopyon 08-05-2023 Casts LM Nom (Urine sed) NONE SEEN #/LPF NONE SEEN [facility] Color Auto (U)on 08-05-2023 Color (U) LT. YELLOW YELLOW [facility] Eosinophils/100 WBC Auto (Bl d)on 08-05-2023 Eosinophils/100 WBC (Bld) 2.5 % 0.9-7.0 [facility] Erythrocyte distribution wid th Auto (RBC) [Ratio]on 08-05-2023 Erythrocyte distribution width (RBC) [Ratio] 16.8 % 11.0-15.0 [facility] Estimated glomerular filtrat ion rate (GFR) non- Americanon 08-05-2023 GFR/1.73 sq M.predicted among non-blacks MDRD (S/P/Bld) [Vol rate/Area] 42 mL/min/{1.73_m2} >=60 [facility] Globulin Calc (S) [Mass/Vol] on 08-05-2023 Globulin (S) [Mass/Vol] 4.1 g/dL [facility] Glucose mean value [Mass/vol ume] in Blood Estimated from glycated hemoglobinon 08-05-2023 Average glucose Estimated from glycated hemoglobin (Bld) [Mass/Vol] 214 mg/dL [facility] Hematocrit Auto (Bld) [Volum e fraction]on 08-05-2023 Hematocrit (Bld) [Volume fraction] 31.8 % 42.0-54.0 [facility] Hemoglobin [Mass/volume] in Bloodon 08-05-2023 Hemoglobin (Bld) [Mass/Vol] 9.4 g/dL 14.0-18.0 [facility] Ketones Auto test strip (U) [Mass/Vol]on 08-05-2023 Ketones (U) [Mass/Vol] Negative NEGATIVE [facility] - Chemistry and C hemistry - challengeon 08-05-2023 Albumin [Mass/Vol] 2.3 g/dL 3.4-5.0 [facility] ALP [Catalytic activity/Vol] 111 U/L 46-116 [facility] ALT [Catalytic activity/Vol] 11 U/L 16-63 [facility] AST [Catalytic activity/Vol] 11 U/L 15-37 [facility] Bilirubin [Mass/Vol] 0.5 mg/dL 0.2-1.0 [facility] Calcium [Mass/Vol] 8.1 mg/dL 8.5-10.1 [facility] Chloride [Moles/Vol] 101 mmol/L 98-107 [facility] CO2 [Moles/Vol] 25.6 mmol/L 21.0-32.0 [facility] Creatinine [Mass/Vol] 1.68 mg/dL 0.70-1.30 [facility] GFR/1.73 sq M.predicted MDRD (S/P/Bld) [Vol rate/Area] 51 mL/min/{1.73_m2} >=60 [facility] Glucose [Mass/Vol] 111 mg/dL 74-106 [facility] Potassium [Moles/Vol] 3.7 mmol/L 3.5-5.1 [facility] Protein [Mass/Vol] 6.4 g/dL 6.4-8.2 [facility] Sodium [Moles/Vol] 138 mmol/L 136-145 [facility] Urea nitrogen [Mass/Vol] 17.0 mg/dL 7.0-18.0 [facility] Urea nitrogen/Creatinine [Mass ratio] 10.1 mg/mg [facility] Laboratory - Hematology and Cell countson 08-05-2023 HbA1c (Bld) [Mass fraction] 9.1 % 4.5-6.2 [facility] Comment on above: ADA RECOMMENDED LIMI T 4.0 - 6.0ADA THERAPEUTIC TARGET < 7.0ACTION SUGGESTED> 7.0 Immature granulocytes/100 WBC (Bld) 0.4 % 0.0-0.5 [facility] Laboratory - Microbiology an d Antimicrobial susceptibilityOrdered By: Jenaro Lynch on 08-05-2023 Microscopic observation Gram stain Nom (Unsp spec) [facility] Leukocytes [#/volume] correc jorge for nucleated erythrocytes in Blood by Automated counon 08-05-2023 WBC corrected for nucl RBC Auto (Bld) [#/Vol] 12.3 10 3/uL 4.0-11.0 [facility] Lymphocytes Auto (Bld) [#/Vo l]on 08-05-2023 Lymphocytes (Bld) [#/Vol] 1.5 10 3/uL 1.2-3.8 [facility] Lymphocytes/100 WBC Auto (Bl d)on 08-05-2023 Lymphocytes/100 WBC (Bld) 11.8 % 20.5-60.0 [facility] MCH Auto (RBC) [Entitic mass ]on 08-05-2023 MCH (RBC) [Entitic mass] 22.4 pg 25.9-34.0 [facility] MCHC Auto (RBC) [Mass/Vol]on 08-05-2023 MCHC (RBC) [Mass/Vol] 29.6 g/dL 29.9-35.2 [facility] MCV Auto (RBC) [Entitic vol] on 08-05-2023 MCV (RBC) [Entitic vol] 75.9 fL 80.0-94.0 [facility] Monocytes Auto (Bld) [#/Vol] on 08-05-2023 Monocytes (Bld) [#/Vol] 1.3 10 3/uL 0.3-0.8 [facility] Monocytes/100 WBC Auto (Bld) on 08-05-2023 Monocytes/100 WBC (Bld) 10.7 % 1.7-12.0 [facility] Mucus LM Ql (Urine sed)on Mucus Ql (Urine sed) NONE SEEN NONE SEEN [facility] Neutrophils Auto (Bld) [#/Vo l]on 08-05-2023 Neutrophils (Bld) [#/Vol] 9.1 10 3/uL 1.4-6.5 [facility] Neutrophils/100 WBC Auto (Bl d)on 08-05-2023 Neutrophils/100 WBC (Bld) 73.9 % 43.0-75.0 [facility] No Panel Informationon 08-04 Eosinophils # (Auto) 0.3 10 3/uL 0.0-0.7 [facility] Immature Granulocyte # (Auto) 0.05 10 3/uL 0.00-0.03 [facility] Platelet mean volume Auto (B ld) [Entitic vol]on 08-05-2023 Platelet mean volume (Bld) [Entitic vol] 11.2 fL 9.5-13.5 [facility] Platelets Auto (Bld) [#/Vol] on 08-05-2023 Platelets (Bld) [#/Vol] 184 10 3/uL 150-450 [facility] Protein Auto test strip (U) [Mass/Vol]on 08-05-2023 Protein (U) [Mass/Vol] Negative NEG/TRACE Fi [facility] RBC Auto (Bld) [#/Vol]on RBC (Bld) [#/Vol] 4.19 10 6/uL 4.70-6.10 [facility] Serum or plasma albumin/glob ulin mass ratioon 08-05-2023 Albumin/Globulin [Mass ratio] 0.6 {ratio} [facility] Serum or plasma anion gap de terminationon 08-05-2023 Anion gap [Moles/Vol] 15.1 mmol/L Fi [facility] Specific gravity Auto test s trip (U) [Rel density]on 08-05-2023 Specific gravity (U) [Rel density] CLEAR CLEAR [facility] Urine bacteria detection by automated methodon 08-05-2023 Bacteria Auto Ql (U) TRACE #/HPF NONE SEEN [facility] Urine glucose measurement by test strip (mass/volume)on 08-05-2023 Glucose Test strip (U) [Mass/Vol] >=1000 mg/dL NEGATIVE [facility] Urine hemoglobin detection b y automated test stripon 08-05-2023 Hemoglobin Auto test strip Ql (U) Negative NEGATIVE [facility] Urine nitrite detection by a utomated test stripon 08-05-2023 Nitrite Auto test strip Ql (U) Negative NEGATIVE [facility] Urine sediment crystal ident ification by light microscopyon 08-05-2023 Crystals LM Nom (Urine sed) None Seen #/HPF None Seen [facility] Urine sediment leukocyte cou nt by microscopy (number/high power field)on 08-05-2023 WBC LM.HPF (Urine sed) [#/Area] NONE SEEN #/HPF NONE SEEN [facility] Urobilinogen Auto test strip (U) [Mass/Vol]on 08-05-2023 Urobilinogen Qn (U) 0.2 {Brendan'U}/dL 0.2-1.0 [facility] pH Auto test strip (U)on pH (U) 6.0 [pH] 5.0-9.0 [facility] Basophils Auto (Bld) [#/Vol] on 08-04-2023 Basophils (Bld) [#/Vol] 0.1 10 3/uL 0.0-0.1 [facility] Basophils/100 WBC Auto (Bld) on 08-04-2023 Basophils/100 WBC (Bld) 0.8 % 0.2-2.0 [facility] Eosinophils/100 WBC Auto (Bl d)on 08-04-2023 Eosinophils/100 WBC (Bld) 2.8 % 0.9-7.0 [facility] Erythrocyte distribution wid th Auto (RBC) [Ratio]on 08-04-2023 Erythrocyte distribution width (RBC) [Ratio] 16.9 % 11.0-15.0 [facility] Estimated glomerular filtrat ion rate (GFR) non- Americanon 08-04-2023 GFR/1.73 sq M.predicted among non-blacks MDRD (S/P/Bld) [Vol rate/Area] 33 mL/min/{1.73_m2} >=60 [facility] Globulin Calc (S) [Mass/Vol] on 08-04-2023 Globulin (S) [Mass/Vol] 4.4 g/dL [facility] Hematocrit Auto (Bld) [Volum e fraction]on 08-04-2023 Hematocrit (Bld) [Volume fraction] 32.6 % 42.0-54.0 [facility] Hemoglobin [Mass/volume] in Bloodon 08-04-2023 Hemoglobin (Bld) [Mass/Vol] 9.6 g/dL 14.0-18.0 [facility] INR in Platelet poor plasma by Coagulation assayon 08-04-2023 INR Coag (PPP) [Relative time] 1.05 {INR} [facility] Comment on above: DESIRED INR:2.0-3.0 CONDITIONS NOT LISTED BELOW2.5-3.5 FOR PROSTHETIC HEART VALVE REPLACEMENT2.5-3.5 RECURRENT THROMBOSIS Laboratory - Chemistry and C hemistry - challengeon 08-04-2023 Albumin [Mass/Vol] 2.4 g/dL 3.4-5.0 [facility] ALP [Catalytic activity/Vol] 109 U/L 46-116 [facility] ALT [Catalytic activity/Vol] 9 U/L 16-63 [facility] AST [Catalytic activity/Vol] U/L 15-37 [facility] Bilirubin [Mass/Vol] 0.4 mg/dL 0.2-1.0 [facility] Calcium [Mass/Vol] 8.0 mg/dL 8.5-10.1 [facility] Chloride [Moles/Vol] 96 mmol/L 98-107 [facility] CO2 [Moles/Vol] 29.2 mmol/L 21.0-32.0 [facility] Creatinine [Mass/Vol] 2.06 mg/dL 0.70-1.30 [facility] GFR/1.73 sq M.predicted MDRD (S/P/Bld) [Vol rate/Area] 40 mL/min/{1.73_m2} >=60 [facility] Glucose [Mass/Vol] 329 mg/dL 74-106 [facility] Potassium [Moles/Vol] 3.5 mmol/L 3.5-5.1 [facility] Protein [Mass/Vol] 6.8 g/dL 6.4-8.2 [facility] Sodium [Moles/Vol] 132 mmol/L 136-145 [facility] Urea nitrogen [Mass/Vol] 20.0 mg/dL 7.0-18.0 [facility] Urea nitrogen/Creatinine [Mass ratio] 9.7 mg/mg [facility] Laboratory - Hematology and Cell countson 08-04-2023 ESR (Bld) [Velocity] 89 mm/h <=20 [facility] Immature granulocytes/100 WBC (Bld) 0.3 % 0.0-0.5 [facility] Laboratory - Microbiology an d Antimicrobial susceptibilityOrdered By: Jenaro Lynch on 08-04-2023 Microscopic observation Gram stain Nom (Unsp spec) [facility] Leukocytes [#/volume] correc jorge for nucleated erythrocytes in Blood by Automated counon 08-04-2023 WBC corrected for nucl RBC Auto (Bld) [#/Vol] 11.6 10 3/uL 4.0-11.0 [facility] Lymphocytes Auto (Bld) [#/Vo l]on 08-04-2023 Lymphocytes (Bld) [#/Vol] 1.7 10 3/uL 1.2-3.8 [facility] Lymphocytes/100 WBC Auto (Bl d)on 08-04-2023 Lymphocytes/100 WBC (Bld) 14.9 % 20.5-60.0 [facility] MCH Auto (RBC) [Entitic mass ]on 08-04-2023 MCH (RBC) [Entitic mass] 22.3 pg 25.9-34.0 [facility] MCHC Auto (RBC) [Mass/Vol]on 08-04-2023 MCHC (RBC) [Mass/Vol] 29.4 g/dL 29.9-35.2 [facility] MCV Auto (RBC) [Entitic vol] on 08-04-2023 MCV (RBC) [Entitic vol] 75.8 fL 80.0-94.0 [facility] Monocytes Auto (Bld) [#/Vol] on 08-04-2023 Monocytes (Bld) [#/Vol] 1.2 10 3/uL 0.3-0.8 [facility] Monocytes/100 WBC Auto (Bld) on 08-04-2023 Monocytes/100 WBC (Bld) 10.4 % 1.7-12.0 [facility] Neutrophils Auto (Bld) [#/Vo l]on 08-04-2023 Neutrophils (Bld) [#/Vol] 8.2 10 3/uL 1.4-6.5 [facility] Neutrophils/100 WBC Auto (Bl d)on 08-04-2023 Neutrophils/100 WBC (Bld) 70.8 % 43.0-75.0 [facility] No Panel InformationOrdered By: Jenaro Lynch on 08-04-2023 Blood Culture 2 [facility] Blood Culture 1 [facility] Wound Culture [facility] No Panel Informationon 08-03 Aerobic & Anaerobic Susceptibility [facility] Miscellaneous Test Comment See comment [facility] Comment on above: Specimen Source: JONO T - Foot - Foot - 603.950 C-Reactive Protein, Quantitative 11.62 mg/dL <=0.50 [facility] Eosinophils # (Auto) 0.3 10 3/uL 0.0-0.7 [facility] Immature Granulocyte # (Auto) 0.04 10 3/uL 0.00-0.03 [facility] Platelet mean volume Auto (B ld) [Entitic vol]on 08-04-2023 Platelet mean volume (Bld) [Entitic vol] 11.5 fL 9.5-13.5 [facility] Platelets Auto (Bld) [#/Vol] on 08-04-2023 Platelets (Bld) [#/Vol] 206 10 3/uL 150-450 [facility] Prothrombin time (PT)on PT Coag (PPP) [Time] 11.1 s 9.0-11.6 [facility] RBC Auto (Bld) [#/Vol]on RBC (Bld) [#/Vol] 4.30 10 6/uL 4.70-6.10 [facility] Serum or plasma albumin/glob ulin mass ratioon 08-04-2023 Albumin/Globulin [Mass ratio] 0.5 {ratio} [facility] Serum or plasma anion gap de terminationon 08-04-2023 Anion gap [Moles/Vol] 10.3 mmol/L [facility] Serum procalcitonin measurem enton 08-04-2023 Procalcitonin [Mass/Vol] 0.10 ng/mL 0.00-0.50 [facility] Basophils Auto (Bld) [#/Vol] on 08-03-2023 Basophils (Bld) [#/Vol] 0.1 10 3/uL 0.0-0.1 [facility] Basophils/100 WBC Auto (Bld) on 08-03-2023 Basophils/100 WBC (Bld) 0.7 % 0.2-2.0 [facility] Eosinophils/100 WBC Auto (Bl d)on 08-03-2023 Eosinophils/100 WBC (Bld) 1.8 % 0.9-7.0 [facility] Erythrocyte distribution wid th Auto (RBC) [Ratio]on 08-03-2023 Erythrocyte distribution width (RBC) [Ratio] 17.0 % 11.0-15.0 [facility] Estimated glomerular filtrat ion rate (GFR) non- Americanon 08-03-2023 GFR/1.73 sq M.predicted among non-blacks MDRD (S/P/Bld) [Vol rate/Area] 27 mL/min/{1.73_m2} >=60 [facility] Globulin Calc (S) [Mass/Vol] on 08-03-2023 Globulin (S) [Mass/Vol] 5.0 g/dL [facility] Hematocrit Auto (Bld) [Volum e fraction]on 08-03-2023 Hematocrit (Bld) [Volume fraction] 38.9 % 42.0-54.0 [facility] Hemoglobin [Mass/volume] in Bloodon 08-03-2023 Hemoglobin (Bld) [Mass/Vol] 11.8 g/dL 14.0-18.0 [facility] Laboratory - Chemistry and C hemistry - challengeon 08-03-2023 Lactate [Moles/Vol] 1.6 mmol/L 0.4-2.0 [facility] Albumin [Mass/Vol] 3.3 g/dL 3.4-5.0 [facility] ALP [Catalytic activity/Vol] 134 U/L 46-116 [facility] ALT [Catalytic activity/Vol] 13 U/L 16-63 [facility] AST [Catalytic activity/Vol] U/L 15-37 [facility] Bilirubin [Mass/Vol] 0.6 mg/dL 0.2-1.0 [facility] Calcium [Mass/Vol] 9.3 mg/dL 8.5-10.1 [facility] Chloride [Moles/Vol] 92 mmol/L 98-107 [facility] CO2 [Moles/Vol] 31.0 mmol/L 21.0-32.0 [facility] Creatinine [Mass/Vol] 2.45 mg/dL 0.70-1.30 [facility] GFR/1.73 sq M.predicted MDRD (S/P/Bld) [Vol rate/Area] 33 mL/min/{1.73_m2} >=60 [facility] Glucose [Mass/Vol] 310 mg/dL 74-106 [facility] Potassium [Moles/Vol] 3.7 mmol/L 3.5-5.1 [facility] Protein [Mass/Vol] 8.3 g/dL 6.4-8.2 [facility] Sodium [Moles/Vol] 133 mmol/L 136-145 [facility] Urea nitrogen [Mass/Vol] 23.0 mg/dL 7.0-18.0 [facility] Urea nitrogen/Creatinine [Mass ratio] 9.4 mg/mg [facility] Laboratory - Hematology and Cell countson 08-03-2023 ESR (Bld) [Velocity] 118 mm/h <=20 [facility] Immature granulocytes/100 WBC (Bld) 0.4 % 0.0-0.5 [facility] Leukocytes [#/volume] correc jorge for nucleated erythrocytes in Blood by Automated counon 08-03-2023 WBC corrected for nucl RBC Auto (Bld) [#/Vol] 14.6 10 3/uL 4.0-11.0 [facility] Lymphocytes Auto (Bld) [#/Vo l]on 08-03-2023 Lymphocytes (Bld) [#/Vol] 2.1 10 3/uL 1.2-3.8 [facility] Lymphocytes/100 WBC Auto (Bl d)on 08-03-2023 Lymphocytes/100 WBC (Bld) 14.3 % 20.5-60.0 [facility] MCH Auto (RBC) [Entitic mass ]on 08-03-2023 MCH (RBC) [Entitic mass] 22.6 pg 25.9-34.0 [facility] MCHC Auto (RBC) [Mass/Vol]on 08-03-2023 MCHC (RBC) [Mass/Vol] 30.3 g/dL 29.9-35.2 [facility] MCV Auto (RBC) [Entitic vol] on 08-03-2023 MCV (RBC) [Entitic vol] 74.4 fL 80.0-94.0 [facility] Monocytes Auto (Bld) [#/Vol] on 08-03-2023 Monocytes (Bld) [#/Vol] 1.4 10 3/uL 0.3-0.8 [facility] Monocytes/100 WBC Auto (Bld) on 08-03-2023 Monocytes/100 WBC (Bld) 9.4 % 1.7-12.0 [facility] Neutrophils Auto (Bld) [#/Vo l]on 08-03-2023 Neutrophils (Bld) [#/Vol] 10.7 10 3/uL 1.4-6.5 [facility] Neutrophils/100 WBC Auto (Bl d)on 08-03-2023 Neutrophils/100 WBC (Bld) 73.4 % 43.0-75.0 [facility] No Panel Informationon C-Reactive Protein, Quantitative 14.63 mg/dL <=0.50 [facility] Eosinophils # (Auto) 0.3 10 3/uL 0.0-0.7 [facility] Immature Granulocyte # (Auto) 0.06 10 3/uL 0.00-0.03 [facility] Venous Blood Partial Pressure CO2 44.8 mm[Hg] 40.0-52.0 [facility] Venous Blood pH 7.432 7.330-7.43 0 [facility] No Panel InformationOrdered By: Jenaro Lynch on 08-03-2023 Blood Culture 2 [facility] Blood Culture 1 [facility] Platelet mean volume Auto (B ld) [Entitic vol]on 08-03-2023 Platelet mean volume (Bld) [Entitic vol] 11.4 fL 9.5-13.5 [facility] Platelets Auto (Bld) [#/Vol] on 08-03-2023 Platelets (Bld) [#/Vol] 252 10 3/uL 150-450 [facility] RBC Auto (Bld) [#/Vol]on RBC (Bld) [#/Vol] 5.23 10 6/uL 4.70-6.10 [facility] Serum or plasma albumin/glob ulin mass ratioon 08-03-2023 Albumin/Globulin [Mass ratio] 0.7 {ratio} [facility] Serum or plasma anion gap de terminationon 08-03-2023 Anion gap [Moles/Vol] 13.7 mmol/L Fi [facility] US venous duplex LE BIon US venous duplex LE BI [facility] [place] [address] Ultrasound Report Signed Patient: Solomon Feldman SR MR#: [id number] : 1965 Acct:[id number] Age/Sex: 57 / M ADM Date: 07/12/23 [...] Howard Boss MD07/13/2023 11:56 AM Dictation Location: [place] [address] Tech: Nancy Pantoja Transcribed By: BOB 07/13/23 1156 Dictated By: Howard Boss MD 07/13/23 1156 Signed By: 07/13/23 1156 Normal [facility] US venous duplex UE LTon US venous duplex UE LT [facility] Main [address] [address] Ultrasound Report Signed Patient: Solomon Feldman SR MR#: [id number] : 1965 Acct:[id number] Age/Sex: 57 / M ADM Date: 07/12/23 [...] Howard Boss MD07/13/2023 11:56 AM Dictation Location: [place] [address] Tech: Nancy Pantoja Transcribed By: BOB 07/13/23 1156 Dictated By: Howard Boss MD 07/13/23 1155 Signed By: 07/13/23 1156 Normal [facility] Activated partial thrombopla stin time (aPTT) in platelet poor plasma by coagulation aOrdered By: Nancy Wilson on 07-12-2023 aPTT Coag (PPP) [Time] 29.4 s 25.1-36.5 [facility] Comment on above: A hematocrit value g reater than 55% may lead to inaccurate results in coagulation testing. Patients having hematocrit values >55% require a special collection tube for coagulation studies. Please contact the laboratory at [phone] for redraw instructions. Alanine aminotransferase [En zymatic activity/volume] in Serum or PlasmaOrdered By: Nancy Wilson on 07-12-2023 ALT [Catalytic activity/Vol] 9 U/L Normal 7-52 [facility] Comment on above: Performed By: #### P TT, CBC, PT, BNP, CMP, HS TROP, CK #### [facility] [address] [place] [address] Albumin [Mass/volume] in Ser um or Plasma by Bromocresol green (BCG) dye binding methoOrdered By: Nancy Wilson on 07-12-2023 Albumin BCG dye [Mass/Vol] 3.9 g/dL 3.5-5.7 [facility] Alkaline phosphatase [Enzyma tic activity/volume] in Serum or PlasmaOrdered By: Nancy Wilson on 07-12-2023 ALP [Catalytic activity/Vol] 106 U/L High 34-104 [facility] Comment on above: Performed By: #### P TT, CBC, PT, BNP, CMP, HS TROP, CK #### [address] Aspartate aminotransferase [ Enzymatic activity/volume] in Serum or PlasmaOrdered By: Nancy Wilson on 07-12-2023 AST [Catalytic activity/Vol] 8 U/L Low 13-39 [facility] Comment on above: Performed By: #### P TT, CBC, PT, BNP, CMP, HS TROP, CK #### [address] Automated basophil %Ordered By: Nancy Wilson on 07-12-2023 Basophils/100 WBC (Bld) 1.1 % Normal . [facility] Comment on above: Performed By: #### P TT, CBC, PT, BNP, CMP, HS TROP, CK #### [address] Automated basophil countOrde red By: Nancy Wilson on 07-12-2023 Basophils (Bld) [#/Vol] 0.1 10*3/uL Normal 0.0-0.2 [facility] Comment on above: Result Comment: PERF ORMED BY: [place] [address] PATHOLOGIST MANNEQUIN MOUNTER CLIFFORD LOBATO M.D. Performed By: #### P TT, CBC, PT, BNP, CMP, HS TROP, CK #### [address] Automated blood monocyte cou ntOrdered By: Nancy Wilson on 07-12-2023 Monocytes (Bld) [#/Vol] 1.0 10*3/uL High 0.0-0.8 [facility] Comment on above: Performed By: #### P TT, CBC, PT, BNP, CMP, HS TROP, CK #### [address] Automated eosinophil %Ordere d By: Nancy Wilson on 07-12-2023 Eosinophils/100 WBC (Bld) 3.3 % Normal . [facility] Comment on above: Performed By: #### P TT, CBC, PT, BNP, CMP, HS TROP, CK #### [address] Automated eosinophil countOr dered By: Nancy Wilson on 07-12-2023 Eosinophils (Bld) [#/Vol] 0.3 10*3/uL Normal 0.0-0.45 [facility] Comment on above: Performed By: #### P TT, CBC, PT, BNP, CMP, HS TROP, CK #### [address] Automated monocyte %Ordered By: Nancy Wilson on 07-12-2023 Monocytes/100 WBC (Bld) 10.2 % Normal . [facility] Comment on above: Performed By: #### P TT, CBC, PT, BNP, CMP, HS TROP, CK #### [address] Automated neutrophil %Ordere d By: Nancy Wilson on 07-12-2023 Neutrophils/100 WBC (Bld) 65.4 % Normal . [facility] Comment on above: Performed By: #### P TT, CBC, PT, BNP, CMP, HS TROP, CK #### [address] BNP ser/plasOrdered By: Laith Wilson on 07-12-2023 Natriuretic peptide B (Bld) [Mass/Vol] 34.0 pg/mL Normal 5-100 [facility] Comment on above: Result Comment: PERF ORMED BY: [place] [address] PATHOLOGIST MANNEQUIN MOUNTER CLIFFORD LOBATO M.D. Performed By: #### P TT, CBC, PT, BNP, CMP, HS TROP, CK #### [address] Bilirubin.total [Mass/volume ] in Serum or PlasmaOrdered By: Nancy Wilson on 07-12-2023 Bilirubin [Mass/Vol] 0.4 mg/dL Normal 0.3-1.0 [facility] Comment on above: Performed By: #### P TT, CBC, PT, BNP, CMP, HS TROP, CK #### [facility] [address] Calcium [Mass/volume] in Ser um or PlasmaOrdered By: Nancy Wilson on 07-12-2023 Calcium [Mass/Vol] 8.5 mg/dL Low 8.6-10.3 [facility] Comment on above: Performed By: #### P TT, CBC, PT, BNP, CMP, HS TROP, CK #### [address] Carbon dioxide, total [Moles /volume] in Serum or PlasmaOrdered By: Nancy Wilson on 07-12-2023 CO2 [Moles/Vol] 24.5 mmol/L Normal 21.0-31.0 [facility] Comment on above: Performed By: #### P TT, CBC, PT, BNP, CMP, HS TROP, CK #### [address] Chloride [Moles/volume] in S ilia or PlasmaOrdered By: Nancy Wilson on 07-12-2023 Chloride [Moles/Vol] 102 mmol/L Normal 98-107 [facility] Comment on above: Performed By: #### P TT, CBC, PT, BNP, CMP, HS TROP, CK #### [address] Complete Blood Count Auto Di ffon 07-12-2023 Mean Corpuscular HGB Conc 32.4 g/dL Low 32.5-35.6 [facility] Comment on above: Performed By: #### P TT, CBC, PT, BNP, CMP, HS TROP, CK #### [address] Monocytes/100 WBC (Bld) 18.12 % Normal 0.00-20.00 [facility] Comment on above: Performed By: #### P TT, CBC, PT, BNP, CMP, HS TROP, CK #### [address] NRBC% 0.1 /100{WBC} Normal 0-0.5 [facility] Comment on above: Performed By: #### P TT, CBC, PT, BNP, CMP, HS TROP, CK #### [address] Comprehensive Metabolic Pane guy 07-12-2023 Albumin [Mass/Vol] 3.9 g/dL Normal 3.5-5.7 [facility] Comment on above: Performed By: #### P TT, CBC, PT, BNP, CMP, HS TROP, CK #### [address] Creatinine Clr Calc Pharmacy 54.64 Normal [facility] Comment on above: Result Comment: PERF ORMED BY: [place] [address] PATHOLOGIST MANNEQUIN MOUNTER CLIFFORD LOBATO M.D. Performed By: #### P TT, CBC, PT, BNP, CMP, HS TROP, CK #### [address] GFR/1.73 sq M.predicted MDRD (S/P/Bld) [Vol rate/Area] 42.789 mL/min/{1.73_m2} Normal [facility] Comment on above: Performed By: #### P TT, CBC, PT, BNP, CMP, HS TROP, CK #### [address] Creatine kinase [Enzymatic a ctivity/volume] in Serum or PlasmaOrdered By: Nancy Wilson on 07-12-2023 CK [Catalytic activity/Vol] 55 U/L Normal 30-223 [facility] Comment on above: Performed By: #### P TT, CBC, PT, BNP, CMP, HS TROP, CK #### [facility] [address] Creatinine [Mass/volume] in Serum or PlasmaOrdered By: Nancy Wilson on 07-12-2023 Creatinine [Mass/Vol] 1.82 mg/dL High 0.70-1.30 [facility] Comment on above: Performed By: #### P TT, CBC, PT, BNP, CMP, HS TROP, CK #### [facility] [address] ECG 12 lead ECGon 07-12-2023 ECG [address] [facility] Main [place] [address] [place] [address] Electrocardiograph Report Signed Patient: Solomon Feldman SR MR#: [id number] : 1965 Acct:[id number] Age/Sex: 57 / M ADM Date: 07/12/23 [...] [facility] Erythrocyte distribution wid th [Ratio] by Automated countOrdered By: Nancy Wilson on 07-12-2023 Erythrocyte distribution width (RBC) [Ratio] 17.1 % High 12.0-14.8 [facility] Comment on above: Performed By: #### P TT, CBC, PT, BNP, CMP, HS TROP, CK #### [facility] [address] Erythrocytes [#/volume] in B lood by Automated countOrdered By: Nancy Wilson on 07-12-2023 RBC (Bld) [#/Vol] 4.63 10*6/uL Normal 3.90-5.60 [facility] Comment on above: Performed By: #### P TT, CBC, PT, BNP, CMP, HS TROP, CK #### [facility] [address] Glucose [Mass/volume] in Ser um or PlasmaOrdered By: Nancy Wilson on 07-12-2023 Glucose [Mass/Vol] 302 mg/dL High 70-100 [facility] Comment on above: ADA recommended refe rence rangeRandom Glucose Reference Range is dependent on time and content of last meal. Glucose of more than 200 mg/dL in a nonstressed, ambulatory subject supports the diagnosis of Diabetes Mellitus. Result Comment: [place] om Glucose Reference Range is dependent on time and content of last meal. Glucose of more than 200 mg/dL in a nonstressed, ambulatory subject supports the diagnosis of Diabetes Mellitus. ADA recommended reference range Performed By: #### P TT, CBC, PT, BNP, CMP, HS TROP, CK #### [facility] [address] Hematocrit [Volume Fraction] of Blood by Automated countOrdered By: Nancy Wilson on 07-12-2023 Hematocrit (Bld) [Volume fraction] 32.7 % Low 38.8-50.0 [facility] Comment on above: Performed By: #### P TT, CBC, PT, BNP, CMP, HS TROP, CK #### [facility] [address] Hemoglobin [Mass/volume] in BloodOrdered By: Nancy Wilson on 07-12-2023 Hemoglobin (Bld) [Mass/Vol] 10.6 g/dL Low 13.0-17.0 [facility] Comment on above: Performed By: #### P TT, CBC, PT, BNP, CMP, HS TROP, CK #### [facility] [address] INR in Platelet poor plasma by Coagulation assayOrdered By: Nancy Wilson on 07-12-2023 INR Coag (PPP) [Relative time] 1.1 {INR} Normal [facility] Comment on above: INR Therapeutic Rang e [...] PT, BNP, CMP, HS TROP, CK #### [facility] [address] Leukocytes [#/volume] correc jorge for nucleated erythrocytes in Blood by Automated counOrdered By: Nancy Wilson on 07-12-2023 WBC corrected for nucl RBC Auto (Bld) [#/Vol] 9.5 10*3/uL 4.1-10.5 [facility] Leukocytes [#/volume] in Blo od by Automated countOrdered By: Nancy Wilson on 07-12-2023 WBC (Bld) [#/Vol] 9.5 10*3/uL Normal 4.1-10.5 [facility] Comment on above: Performed By: #### P TT, CBC, PT, BNP, CMP, HS TROP, CK #### [place] [address] [place] Lymphocytes [#/volume] in Bl ood by Automated countOrdered By: Nancy Wilson on 07-12-2023 Lymphocytes (Bld) [#/Vol] 1.9 10*3/uL Normal 1.00-4.8 [facility] Comment on above: Performed By: #### P TT, CBC, PT, BNP, CMP, HS TROP, CK #### [facility] [address] [place] [address] Lymphocytes/100 leukocytes i n Blood by Automated countOrdered By: Nancy Wilson on 07-12-2023 Lymphocytes/100 WBC (Bld) 20.0 % Normal . [facility] Comment on above: Performed By: #### P TT, CBC, PT, BNP, CMP, HS TROP, CK #### [address] MCH [Entitic mass] by Automa jorge countOrdered By: Nancy Wilson on 07-12-2023 MCH (RBC) [Entitic mass] 22.8 pg Low 27.5-35.2 [facility] Comment on above: Performed By: #### P TT, CBC, PT, BNP, CMP, HS TROP, CK #### [facility] [address] [place] [address] MCHC Auto (RBC) [Mass/Vol]Or dered By: Nancy Wilson on 07-12-2023 MCHC (RBC) [Mass/Vol] 32.4 g/dL 32.5-35.6 [facility] MCV [Entitic volume] by Auto mated countOrdered By: Nancy Wilson on 07-12-2023 MCV (RBC) [Entitic vol] 70.6 fL Low 83.5-101 [facility] Comment on above: Performed By: #### P TT, CBC, PT, BNP, CMP, HS TROP, CK #### [address] Monocyte distribution width [Entitic volume] in Blood by AutomatedOrdered By: Nancy Wilson on 07-12-2023 Monocyte distribution width Auto (Bld) [Entitic vol] 18.12 % 0.00-20.00 [facility] Neutrophils [#/volume] in Bl ood by Automated countOrdered By: Nancy Wilson on 07-12-2023 Neutrophils (Bld) [#/Vol] 6.2 10*3/uL Normal 1.8-7.7 [facility] Comment on above: Performed By: #### P TT, CBC, PT, BNP, CMP, HS TROP, CK #### [facility] [address] [place] [address] No Panel InformationOrdered By: Nancy Wilson on 07-12-2023 Estimated GFR (CKD-EPI) 42.789 mL/Min [facility] Creatinine Clearance (Chem 54.64 [facility] Nucleated erythrocytes [Pres ence] in Blood by Automated countOrdered By: Nancy Wilson on 07-12-2023 Nucleated RBC Auto Ql (Bld) 0.1 /100{WBC} 0-0.5 [facility] Partial Thromboplastin Timeo n 07-12-2023 aPTT Coag (Bld) [Time] 29.4 s Normal 25.1-36.5 [facility] Comment on above: Result Comment: A he matocrit value greater than 55% may lead to inaccurate results in coagulation testing. Patients having hematocrit values >55% require a special collection tube for coagulation studies. Please contact the laboratory at [phone] for redraw instructions. PERFORMED BY: [place] [address] PATHOLOGIST MANNEQUIN MOUNTER CLIFFORD LOBATO M.D. Performed By: #### P TT, CBC, PT, BNP, CMP, HS TROP, CK ####[facility] [address] [place] [address] Platelet mean volume [Entiti c volume] in Blood by Automated countOrdered By: Nancy Wilson on 07-12-2023 Platelet mean volume (Bld) [Entitic vol] 9.1 fL Normal 6.6-10.1 [facility] Comment on above: Performed By: #### P TT, CBC, PT, BNP, CMP, HS TROP, CK #### [facility] [address] [place] [address] Platelets [#/volume] in Bloo d by Automated countOrdered By: Nancy Wilson on 07-12-2023 Platelets (Bld) [#/Vol] 233 10*3/uL Normal 150-450 [facility] Comment on above: Performed By: #### P TT, CBC, PT, BNP, CMP, HS TROP, CK #### [facility] [address] Potassium [Moles/volume] in Serum or PlasmaOrdered By: Nancy Wilson on 07-12-2023 Potassium [Moles/Vol] 3.9 mmol/L Normal 3.5-5.1 [facility] Comment on above: Performed By: #### P TT, CBC, PT, BNP, CMP, HS TROP, CK #### [facility] [address] Protein [Mass/volume] in Ser um or PlasmaOrdered By: Nancy Wilson on 07-12-2023 Protein [Mass/Vol] 7.0 g/dL Normal 6.4-8.9 [facility] Comment on above: Performed By: #### P TT, CBC, PT, BNP, CMP, HS TROP, CK #### [address] Prothrombin time (PT)Ordered By: Nancy Wilson on 07-12-2023 PT Coag (PPP) [Time] 12.1 s Normal 9.0-12.9 [facility] Comment on above: A hematocrit value g reater than 55% may lead to inaccurate results in coagulation testing. Patients having hematocrit values >55% require a special collection tube for coagulation studies. Please contact the laboratory at [phone] for redraw instructions. Result Comment: A he matocrit value greater than 55% may lead to inaccurate results in coagulation testing. Patients having hematocrit values >55% require a special collection tube for coagulation studies. Please contact the laboratory at [phone] for redraw instructions. Performed By: #### P TT, CBC, PT, BNP, CMP, HS TROP, CK #### [facility] [address] Serum globulin measurement b y calculation (mass/volume)Ordered By: Nancy Wilson on 07-12-2023 Globulin (S) [Mass/Vol] 3.1 g/dL Normal [facility] Comment on above: Performed By: #### P TT, CBC, PT, BNP, CMP, HS TROP, CK #### [address] Serum or plasma albumin/glob ulin mass ratioOrdered By: Nancy Wilson on 07-12-2023 Albumin/Globulin [Mass ratio] 1.3 {ratio} Normal [facility] Comment on above: Performed By: #### P TT, CBC, PT, BNP, CMP, HS TROP, CK #### [address] Serum or plasma anion gap de terminationOrdered By: Nancy Wilson on 07-12-2023 Anion gap [Moles/Vol] 13.4 mmol/L Normal 6.0-15.0 [facility] Comment on above: Performed By: #### P TT, CBC, PT, BNP, CMP, HS TROP, CK #### [address] Sodium [Moles/volume] in Ser um or PlasmaOrdered By: Nancy Wilson on 07-12-2023 Sodium [Moles/Vol] 136 mmol/L Normal 136-145 [facility] Comment on above: Performed By: #### P TT, CBC, PT, BNP, CMP, HS TROP, CK #### [address] Troponin I High Sensitivityo n 07-12-2023 Troponin I High Sensitivity 4.6 pg/mL Normal 0.0-20.0 [facility] Comment on above: Result Comment: PERF ORMED BY: [place] [address] PATHOLOGIST MANNEQUIN MOUNTER CLIFFORD LOBATO M.D. Performed By: #### P TT, CBC, PT, BNP, CMP, HS TROP, CK #### [address] Troponin I.cardiac [Mass/vol ume] in Serum or Plasma by Detection limit <= 0.01 ng/Ordered By: Nancy Wilson on 07-12-2023 Troponin I.cardiac DL <= 0.01 ng/mL [Mass/Vol] 4.6 pg/mL 0.0-20.0 [facility] Urea nitrogen [Mass/volume] in Serum or PlasmaOrdered By: Nancy Wilson on 07-12-2023 Urea nitrogen [Mass/Vol] 16 mg/dL Normal 7-25 [facility] Comment on above: Performed By: #### P TT, CBC, PT, BNP, CMP, HS TROP, CK #### [facility] [address] [place] [id number] [facility] XR chest 1V portableon 07-12 XR chest 1V portable [facility] Main [place] [address] [place] [address] XRay Report Signed Patient: Solomon Feldman SR MR#: [id number] : 1965 Acct:[id number] Age/Sex: 57 / M ADM Date: 07/12/23 [...] Sudeep Lind M.D.07/12/2023 5:08 PM Dictation Location: [place] [address] Transcribed By: [facility] 07/12/23 1708 Dictated By: Sudeep Lind DO 07/12/23 170 Signed By: 07/12/238 Normal [facility] Patient Educationon 06-02-20 23 Patient [...] Follow these instructions at home: ? Take vaco-hhs-xgkkvvx and prescription medicines only as told by [...] the medicine (more content not included)... Normal [facility] Retail - Clinical Noteon Retail - Clinical Note [id number]#1.00TIFF Normal [facility] Urology Office/Clinic Noteon 06-02-2023 Urology Office/Clinic [...] Contact Information SOLEDAD HERRERA, Yeyo Blum, URL [address] [place] [address]- Additional Instructions: 1 month w/ cath volumes [...] heart failure) (more content not included)... Normal [facility] Comment on above: Result Comment: Elec tronically Signed By: Yeyo ROWE MD\.br\Date and Time Signed: 06/02/23 12:16 EST\.br\Electronically Co-Signed By: Mattie Foster.br\Date and Time Co-Signed: 06/02/23 12:04 EST Patient Educationon 05-03-[address] [facility] Pathology Noteon 05-01-2023 Pathology Note [id number]#1.00TIFF [facility] Lab Reportson 04-14-2023 Lab Reports [id number]#1.00TIFF Normal [facility] Operative Reporton Operative Report [id number]#1.00TIFF Normal [facility] Patient Correspondenceon Patient Correspondence [id number]#1.00TIFF [facility] Lab Reportson 03-31-2023 Lab Reports [id number]#1.00TIFF [facility] RAD - MISCon 03-31-2023 RAD - MISC [id number]#1.00TIFF [facility] Patient Correspondenceon Patient Correspondence [id number]#1.00TIFF [facility] Formson 03-23-2023 Forms [id number]#1.00TIFF [facility] A1C HEMOGLOBINon 03-15-2023 HbA1c (Bld) [Mass fraction] 7.5 % [facility] Other HbA1c (Bld) [Mass fraction]o n 03-15-2023 A1C HEMOGLOBIN [employer] Other Lab Reportson 03-09-2023 Lab Reports [id number]#1.00TIFF [facility] Consultation Noteon 02-27-20 23 Consultation Note [id number]#1.00CD:12 7 [facility] Consent for Procedure/Surger yon 02-15-2023 Consent for Procedure/Surgery [id number]#1.00CD:12 7 [facility] Office Visit (Cardiology)on 02-15-2023 Follow-up [...] in adult Healthy Weight Tips; Status:Complete; Done: 42Eml2017 Patient Instructions Please bring all medicines, vitamins, [...] Sia HERRERA, (more content not included)... Normal [facility] Tobacco Screening.on 023 Fall risk assessment c) Not medically indicated [facility] 250 DO Work Phone: Tobacco use status [facility] b) No [facility] 250 DO Work Phone: Tobacco Screening. Yes [facility] 250 DO Work Phone: Consent for Procedure/Surger yon 02-14-2023 Consent for Procedure/Surgery [id number]#1.00CD:1 27 [facility] Consent for Procedure/Surgery [id number]#1.00CD:1 27 [facility] Consent for Treatmenton 02-03 Consent for Treatment [id number]#1.00CD:12 7 [facility] IntraOperative Documentson 0 02-14-2023 IntraOperative Documents [id number]#1.00CD:1 27 [facility] IntraOperative Documents [id number]#1.00CD:1 27 [facility] Main OR Intraoperative Recor don 02-14-2023 Main OR Intraoperative Record IntraOp Document Type FTURO Summary Primary Physician: Yeyo ROWE MD Finalized Date/Time: 02/14/23 10:18:58 Pt. Name: GASTON CHRISTIAN, SOLOMON Navarro./Sex: 1965 Male Med Rec #: [id number] Physician: Yeyo ROWE MD Financial #: [id number] Pt. Type: O Room/Bed: / Admit/Disch: 02/14/23 [...] Sheri Daniel Role Performed Surgeon - Primary Dobby Looms Pegger - Primary Scrub - Primary Time In [...] Martínez RN Document Signatures Signed By: Chandrika Mratínez RN 02/14/23 09:45 Chandrika Martínez RN 02/14/23 10:[address] [facility] Main OR Preoperative Recordo n 02-14-2023 Main OR Preoperative Record Holding Area Document Type FTURO Summary Primary Physician: Yeyo ROWE MD Finalized Date/Time: 02/14/23 09:01:37 Pt. Name: SOLOMON FELDMAN SR/Sex: 1965 Male Med Rec #: [id number] Physician: Yeyo ROWE MD Financial #: [id number] Pt. Type: O Room/Bed: / Admit/Disch: 02/14/23 [...] By: Sheri Bolivar RN 02/14/23 09:[address] [facility] Operative Reporton Operative Report Patient: Joe [...] with antibiotic coverage, Follow up arranged. Normal [facility] Comment on above: Result Comment: Michael walker Signed By: SOLEDAD HERRERA, Yeyo Vazquez\Date and Time Signed: 02/14/23 09:52 EDT [...] including vitamins, herbs, eye drops, creams, and eyny-xto-trxloum medicines. ? Any problems you or family [...] tells you to take them. ? Taking idph-eon-pnrjvir medicines, vitamins, herbs, and supplements. Surgery safety [...] health care (more content not included)... Normal [facility] Progress Note-Physicianon Progress Note-Physician Patient: SOLOMON [...] mg = 1 tab(s), PRN, SubLingual, q5min Ophir 325 mg-5 mg oral tablet 1 tab(s), [...] 278.00 / Possible Fibromyalgia / SNOMED CT [id number]-7869-97K5-2 500491B27X2 / Confirmed Restless leg / ICD-9-CM 333.94 / Confirmed Arthritis / SNOMED CT 68TB9246-5K1M-99J2-4X0A-I QX4J407E148 / Confirmed Hyperlipidemia / SNOMED CT 80135182 / Confirmed Smoker / SNOMED CT I203WZ6P-9487-40S0-2346-Y TU9D4509JL2 / Confirmed Added secondary to documentation in Social History. Asthma / SNOMED CT 597607817 / Confirmed COPD type A / SNOMED CT 489707353 / Confirmed Head ache / SNOMED CT 02556288 / Confirmed Heart attack / SNOMED CT 24785490 / Confirmed Heart disease / SNOMED CT 55216338 / Confirmed Heart murmur / SNOMED CT 483212732 / Confirmed Urinary retention / SNOMED CT 439926986 / Confirmed BPH with obstruction/lower urinary tract symptoms / SNOMED CT 9318918359 / Confirmed Orchitis / SNOMED CT 333425647 / Confirmed Gross hematuria / SNOMED CT 139089207 / Confirmed Tobacco use / SNOMED CT YSOW9903-3630-7M42-K5E9-5 35336VC3OY0 / Confirmed Added secondary to social history documentation. Histories Past Medical History: Active Fibromyalgia ([id number]-6962-51N7- 9352593Y92I3) Restless leg (333.94) Arthritis (86VO1950-9K5W-33X3-8U3G- WYR5A176C012) Hyperlipidemia (43848218) Resolved HTN [Hypertension] (401.9): Resolved. NIDDM (250.00): Resolved. GERD [Gastroesophageal reflux disease] (530.81): Resolved. CHF (congestive heart failure) (T9880752-5P4Z-3P2Z-7Q24- L603529U7L93): Resolved. ME (myocardial infarction) (429G3JPC-83N0-7U5O-5V22- 34323X14F8FL): Resolved. Family History: Diabetes mellitus Mother Heart disease Mother Alcoholism Brother Drug addiction Brother Acute myocardial infarction Mother Grandparent Procedure history: Bilateral Eye Surgery. Comments: 07/10/2014 17:25 ALESHA Cormier RN, Kati bilateral cataracts with iol implants Bilateral Carpal Tunnel Surgery. cardiac stents. Appendectomy (831379861). Colonoscopy (281335444). Cataract extraction and insertion of intraocular lens (1307496928). Procedure on back (855296557). Social History Social & Psychosocial Habits Alcohol [...] procedure such (more content not included)... Normal [facility] Comment on above: Result Comment: Elec tronically Signed By: SOLEDAD HERRERA, Yeyo Blum\.br\Date and Time Signed: 02/14/23 09:58 EDT Consent for Treatmenton Consent for Treatment [id number]#1.00CD:[address] [facility] Ambulatory Visit Summaryon 0 01-30-2023 Ambulatory Visit Summary SOLOMON FELDMAN SR :1965 Visit Date:01/30/2023 Ambulatory Visit Instructions Your Diagnosis Urinary retention Gross hematuria BPH with obstruction/lower urinary tract symptoms Orchitis Your Care Team Attending Physician - Yeyo ROWE MD Primary Care Physician - JENARO LYNCH DO This Is Your Medications List Contact prescribing physician if questions or concerns acetaminophen-hydrocodone (Ophir 325 mg-5 mg oral tablet) albuterol (ProAir [...] Urology [address], [place] [id number] Medications What How Much When Instructions Unchanged acetaminophen-hydrocodone (Ophir 325 mg-5 mg oral tablet) 1 Tablets [...] or vivian (more content not included)... Normal [facility] Patient Educationon 01-31-20 Patient Education Urology [...] including vitamins, herbs, eye drops, creams, and uskd-tfh-xnqjhmi medicines. ? Whether you are or may [...] results be (more content not included)... Normal [facility] Urology Office/Clinic Noteon 01-30-2023 Urology Office/Clinic [...] Urology [address], [place] [phone] Additional Instructions: sched cysto/uros Patient Education Urodynamic [...] failure) GERD [Gastroesophageal reflux disease] HTN [Hypertension] ME (myocardial infarction) NIDDM Procedure/Surgical History Appendectomy, Bilateral [...] mg, BID (more content not included)... Normal [facility] Comment on above: Result Comment: Elec tronically Signed By: Saima Sutton.br\Date and Time Signed: 01/30/23 11:38 EDT [facility] C[facility] STR[facility]REST INJE ELISAIONon 01-25-2023 [facility]REST INJECTION Patient Name: SOLOMON FELDMAN STUDY: MYOCARDIAL PERFUSION STRESS TEST WITH EXERCISE CONVERTED TO LEXISCAN Performing facility: [facility], [address] [place] [address], [address], [place] [address] [facility] Provider: Dolores Feldman RN, PHARMACEUTICAL WORKER PCP: Dr. Jenaro Lynch Supervising provider: Pascale Arnold MD, [facility] INDICATION: Anginal equivalent CAD; HISTORY: Gender: M; Age: 57 y/o ; Height: 182.88 cm; Weight: 97.4785769 kg. High Cholesterol; CAD; Diabetes; HTN; Palpitations; Chest Pain; Quit smoking unknown years ago. COMPARISON: Previous nuclear [facility] completed at [facility]. ACCESSION NUMBER(S): [id number]; [id number]; [id number] ORDERING CLINICIAN: DOLORES FELDMAN TECHNIQUE: ONE DAY [...] Electronically signed by: PASCALE ARNOLD MD Normal [facility] No Panel Informationon 01-25 Normal [facility] 250 DO Work Phone: Office [...] Med Order; Status:Hold For - Scheduling; Requested for:[id number]; Radiologist to Determine Optimal Study : Y [...] contact the office if new symptoms arise. 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 Normal [place] Tobacco Screening.on 023 Adult depression screening assessment No [facility] [email or web address] 600 DO Work Phone: Tobacco use status [facility] b) No [facility] [employer] [address] DO Work Phone: Ambulatory Visit Summaryon 0 12-28-2022 Ambulatory Visit Summary SOLOMON FELDMAN SR :1965 Visit Date:12/28/2022 Ambulatory Visit Instructions Your Care Team Attending Physician - Yeyo ROWE MD Primary Care Physician - JENARO LYNCH DO This Is Your Medications List acetaminophen-hydrocodone (Ophir 325 mg-5 mg oral tablet) albuterol (ProAir [...] HERRERA, Yeyo Blum Where: [facility] Alanine aminotransferase [En zymatic activity/volume] in Serum or PlasmaOrdered By: Jenaro Lynch on 09-27-2022 ALT [Catalytic activity/Vol] 15 U/L 7-52 [facility] Albumin [Mass/volume] in Ser um or Plasma by Bromocresol green (BCG) dye binding methoOrdered By: Jenaro Lynch on 09-27-2022 Albumin BCG dye [Mass/Vol] 4.1 g/dL 3.5-5.7 [facility] Alkaline phosphatase [Enzyma tic activity/volume] in Serum or PlasmaOrdered By: Jenaro Lynch on 09-27-2022 ALP [Catalytic activity/Vol] 116 U/L 34-104 [facility] Aspartate aminotransferase [ Enzymatic activity/volume] in Serum or PlasmaOrdered By: Jenaro Lynch on 09-27-2022 AST [Catalytic activity/Vol] 15 U/L 13-39 [facility] Basophils Auto (Bld) [#/Vol] Ordered By: Jenaro Lynch on 09-27-2022 Basophils (Bld) [#/Vol] 0.1 10*3/uL 0.0-0.2 [facility] Basophils/100 WBC Auto (Bld) Ordered By: Jenaro Lynch on 09-27-2022 Basophils/100 WBC (Bld) 1.1 % . [facility] Bilirubin.total [Mass/volume ] in Serum or PlasmaOrdered By: Jenaro Lynch on 09-27-2022 Bilirubin [Mass/Vol] 0.4 mg/dL 0.3-1.0 [facility] Calcium [Mass/volume] in Ser um or PlasmaOrdered By: Jenaro Lynch on 09-27-2022 Calcium [Mass/Vol] 8.8 mg/dL 8.6-10.3 [facility] Carbon dioxide, total [Moles /volume] in Serum or PlasmaOrdered By: Jenaro Lynch on 09-27-2022 CO2 [Moles/Vol] 27.2 mmol/L 21.0-31.0 [facility] Chloride [Moles/volume] in S ilia or PlasmaOrdered By: Jenaro Lynch on 09-27-2022 Chloride [Moles/Vol] 99 mmol/L 98-107 [facility] Cholesterol [Mass/volume] in Serum or PlasmaOrdered By: Jenaro Lynch on 09-27-2022 Cholesterol [Mass/Vol] 104 mg/dL 140-200 [facility] Comment on above: Chol less than 200 m g/dl low riskChol 201-239 mg/dl borderline riskChol 240 mg/dl and greater high risk Cholesterol in LDL Calc [Mas s/Vol]Ordered By: Jenaro Lynch on 09-27-2022 Cholesterol in LDL [Mass/Vol] TNP [facility] Comment on above: Test not performed Cholesterol in LDL [Mass/vol ume] in Serum or PlasmaOrdered By: Jenaro Lynch on 09-27-2022 Cholesterol in LDL [Mass/Vol] 38 mg/dL 0-100 [facility] Comment on above: LDL ATP III CLASSIFI CATIONLDL less than 100 mg/dL OptimalLDL 100-129 mg/dL Near or above optimalLDL 130-159 mg/dL Borderline highLDL 160-189 mg/dL HighLDL greater than 189 mg/dL Very high Cholesterol in VLDL Calc [Ma ss/Vol]Ordered By: Jenaro Lynch on 09-27-2022 Cholesterol in VLDL [Mass/Vol] 99 mg/dL [facility] Creatinine [Mass/volume] in Serum or PlasmaOrdered By: Jenaro Lynch on 09-27-2022 Creatinine [Mass/Vol] 1.84 mg/dL 0.70-1.30 [facility] Eosinophils Auto (Bld) [#/Vo l]Ordered By: Jenaro Lynch on 09-27-2022 Eosinophils (Bld) [#/Vol] 0.7 10*3/uL 0.0-0.45 [facility] Eosinophils/100 WBC Auto (Bl d)Ordered By: Jenaro Lynch on 09-27-2022 Eosinophils/100 WBC (Bld) 5.9 % . [facility] Erythrocyte distribution wid th Auto (RBC) [Ratio]Ordered By: Jenaro Lynch on 09-27-2022 Erythrocyte distribution width (RBC) [Ratio] 16.0 % 12.0-14.8 [facility] Globulin Calc (S) [Mass/Vol] Ordered By: Jenaro Lynch on 09-27-2022 Globulin (S) [Mass/Vol] 2.9 g/dL [facility] Glucose [Mass/volume] in Ser um or PlasmaOrdered By: Jenaro Lynch on 09-27-2022 Glucose [Mass/Vol] 225 mg/dL 70-100 [facility] Comment on above: ADA recommended refe rence rangeRandom Glucose Reference Range is dependent on time and content of last meal. Glucose of more than 200 mg/dL in a nonstressed, ambulatory subject supports the diagnosis of Diabetes Mellitus. Hematocrit Auto (Bld) [Volum e fraction]Ordered By: Jenaro Lynch on 09-27-2022 Hematocrit (Bld) [Volume fraction] 41.0 % 38.8-50.0 [facility] Hemoglobin [Mass/volume] in BloodOrdered By: Jenaro Lynch on 09-27-2022 Hemoglobin (Bld) [Mass/Vol] 13.2 g/dL 13.0-17.0 [facility] Leukocytes [#/volume] correc jorge for nucleated erythrocytes in Blood by Automated counOrdered By: Jenaro Lynch on 09-27-2022 WBC corrected for nucl RBC Auto (Bld) [#/Vol] 12.4 10*3/uL 4.1-10.5 [facility] Lymphocytes Auto (Bld) [#/Vo l]Ordered By: Jenaro Lynch on 09-27-2022 Lymphocytes (Bld) [#/Vol] 2.3 10*3/uL 1.00-4.8 [facility] Lymphocytes/100 WBC Auto (Bl d)Ordered By: Jenaro Lynch on 09-27-2022 Lymphocytes/100 WBC (Bld) 18.2 % . [facility] MCH Auto (RBC) [Entitic mass ]Ordered By: Jenaro Lynch on 09-27-2022 MCH (RBC) [Entitic mass] 23.9 pg 27.5-35.2 [facility] MCHC Auto (RBC) [Mass/Vol]Or dered By: Jenaro Lynch on 09-27-2022 MCHC (RBC) [Mass/Vol] 32.2 g/dL 32.5-35.6 [facility] MCV Auto (RBC) [Entitic vol] Ordered By: Jenaro Lynch on 09-27-2022 MCV (RBC) [Entitic vol] 74.3 fL 83.5-101 [facility] Monocytes Auto (Bld) [#/Vol] Ordered By: Jenaro Lynch on 09-27-2022 Monocytes (Bld) [#/Vol] 1.0 10*3/uL 0.0-0.8 [facility] Monocytes/100 WBC Auto (Bld) Ordered By: Jenaro Lynch on 09-27-2022 Monocytes/100 WBC (Bld) 7.9 % . [facility] Neutrophils Auto (Bld) [#/Vo l]Ordered By: Jenaro Lynch on 09-27-2022 Neutrophils (Bld) [#/Vol] 8.3 10*3/uL 1.8-7.7 [facility] Neutrophils/100 WBC Auto (Bl d)Ordered By: Jenaro Lynch on 09-27-2022 Neutrophils/100 WBC (Bld) 66.9 % . [facility] No Panel InformationOrdered By: Jenaro Lynch on 09-27-2022 Estimated GFR (CKD-EPI) 42.232 mL/Min [facility] Creatinine Clearance (Chem N/A [facility] Nucleated erythrocytes [Pres ence] in Blood by Automated countOrdered By: Jenaro Lynch on 09-27-2022 Nucleated RBC Auto Ql (Bld) 0.1 /100{WBC} 0-0.5 [facility] Platelet mean volume Auto (B ld) [Entitic vol]Ordered By: Jenaro Lynch on 09-27-2022 Platelet mean volume (Bld) [Entitic vol] 9.1 fL 6.6-10.1 [facility] Platelets Auto (Bld) [#/Vol] Ordered By: Jenaro Lynch on 09-27-2022 Platelets (Bld) [#/Vol] 209 10*3/uL 150-450 [facility] Potassium [Moles/volume] in Serum or PlasmaOrdered By: Jenaro Lynch on 09-27-2022 Potassium [Moles/Vol] 4.3 mmol/L 3.5-5.1 [facility] Protein [Mass/volume] in Ser um or PlasmaOrdered By: Jenaro Lynch on 09-27-2022 Protein [Mass/Vol] 7.0 g/dL 6.4-8.9 [facility] RBC Auto (Bld) [#/Vol]Ordere d By: Jenaro Lynch on 09-27-2022 RBC (Bld) [#/Vol] 5.52 10*6/uL 3.90-5.60 [facility] Serum or plasma albumin/glob ulin mass ratioOrdered By: Jenaro Lynch on 09-27-2022 Albumin/Globulin [Mass ratio] 1.4 {ratio} [facility] Serum or plasma anion gap de terminationOrdered By: Jenaro Lynch on 09-27-2022 Anion gap [Moles/Vol] 14.1 mmol/L 6.0-15.0 [facility] Serum or plasma high density lipoprotein (HDL) cholesterol measurementOrdered By: Jenaro Lynch on 09-27-2022 Cholesterol in HDL [Mass/Vol] 21 mg/dL 29- [facility] Comment on above: HDL CHOL ATP-III CLA SSIFICATION Cardiovascular RiskHDL > or equal to 60 mg/dL LOWHDL < 40 mg/dL HIGH Serum or plasma total choles terol/high density lipoprotein (HDL) cholesterol mass ratOrdered By: Jenaro Lynch on 09-27-2022 Cholesterol.total/Chol esterol in HDL [Mass ratio] 5.0 {ratio} <5.0 [facility] Sodium [Moles/volume] in Ser um or PlasmaOrdered By: Jenaro Lynch on 09-27-2022 Sodium [Moles/Vol] 136 mmol/L 136-145 [facility] Thyrotropin [Units/volume] i n Serum or PlasmaOrdered By: Jenaro Lynch on 09-27-2022 TSH Qn 3.62 m[IU]/L 0.45-5.33 [facility] Triglyceride [Mass/volume] i n Serum or PlasmaOrdered By: Jenaro Lynch on 09-27-2022 Triglyceride [Mass/Vol] 497 mg/dL 0-149 [facility] Comment on above: If the triglyceride result [...] on 09-27-2022 Urate [Mass/Vol] 6.2 mg/dL 2.4-7.6 [facility] Urea nitrogen [Mass/volume] in Serum or PlasmaOrdered By: Jenaro Lynch on 09-27-2022 Urea nitrogen [Mass/Vol] 15 mg/dL 12-27 [facility] WBC Auto (Bld) [#/Vol]Ordere d By: Jenaro Lynch on 09-27-2022 WBC (Bld) [#/Vol] 12.4 10*3/uL 4.1-10.5 [facility] A1C HEMOGLOBINon 02-15-2022 HbA1c (Bld) [Mass fraction] % [facility] [employer] Other HbA1c (Bld) [Mass fraction]o n 02-15-2022 A1C HEMOGLOBIN [place] [employer] Other Tobacco Screening.on 022 Adult depression screening assessment No [facility] [address] DO Work Phone: Tobacco use status [facility]PH[facility] b) No -[facility] [address] DO Work Phone: A1C HEMOGLOBINon 07-27-2021 HbA1c (Bld) [Mass fraction] 11.8 % [facility] [employer] Other HbA1c (Bld) [Mass fraction]o n 07-27-2021 A1C HEMOGLOBIN [employer] Other Vital Signs Date Time Vital Sign Value Performing Clinician Facility 10-24-2023 10:56-0400 Body height 182.9 cm Raulito Inman MD Work Phone: [facility] 10-24-2023 10:56-0400 Diastolic blood pressure 86 mm[Hg] Raulito Inman MD Work Phone: [facility] 10-24-2023 10:56-0400 Heart rate 104 /min Raulito Inman MD Work Phone: [facility] 10-24-2023 10:56-0400 Systolic blood pressure 134 mm[Hg] Raulito Inman MD Work Phone: [facility] 10-23-2023 09:37-0400 Blood Pressure Location Padmini Montes [facility] 10-23-2023 09:37-0400 Diastolic blood pressure 82 mm[Hg] Padmini Montes [facility] 10-23-2023 09:37-0400 Heart rate 107 /min Padmini Montes [facility] 10-23-2023 09:37-0400 SaO2% (BldA) [Mass fraction] 98 % Padmini Montes [facility] 10-23-2023 09:37-0400 Systolic blood pressure 130 mm[Hg] Padmini Montes [facility] 07-31-2023 12:00-0500 Diastolic blood pressure 63 mm[Hg] DO Jenaro Kuns Work Phone: [facility] 07-31-2023 12:00-0500 Heart rate 75 /min DO Jenaro Kuns Work Phone: [facility] 07-31-2023 12:00-0500 Systolic blood pressure 108 mm[Hg] DO Jenaro Kuns Work Phone: [facility] 07-31-2023 08:33-0500 Respiratory rate 18 /min DO Jenaro Kuns Work Phone: [facility] 07-12-2023 18:03-0500 Diastolic blood pressure 73 mm[Hg] DO Jenaro Kuns Work Phone: [facility] 07-12-2023 18:03-0500 Heart rate 76 /min DO Jenaro Kuns Work Phone: [facility] 07-12-2023 18:03-0500 Respiratory rate 20 /min DO Jenaro Kuns Work Phone: [facility] 07-12-2023 18:03-0500 SaO2% (BldA) [Mass fraction] 98 % DO Jenaro Kuns Work Phone: [facility] 07-12-2023 18:03-0500 Systolic blood pressure 125 mm[Hg] DO Jenaro Kuns Work Phone: [facility] 07-12-2023 16:15-0500 Body height 182.88 cm DO Jenaro Kuns Work Phone: [facility] 07-12-2023 16:15-0500 Body temperature 98.9 [degF] DO Jenaro Lynch Work Phone: [facility] 07-12-2023 16:15-0500 Body weight 99.25 kg DO Jenaro Lynch Work Phone: [facility] 06-02-2023 10:56-0500 Blood Pressure Location Yeyo ROWE [facility] 06-02-2023 10:56-0500 Body temperature 96.98 [degF] Yeyo ROWE [facility] 06-02-2023 10:56-0500 Diastolic blood pressure 84 mm[Hg] Yeyo ROWE [facility] 06-02-2023 10:56-0500 Heart rate 68 /min Yeyo ROWE [facility] 06-02-2023 10:56-0500 Systolic blood pressure 124 mm[Hg] Yeyo ROWE [facility] 04-06-2023 13:15-0400 Body height 180.34 cm Jenaro Lynch Other [facility] Other 04-06-2023 13:15-0400 Body mass index (BMI) [Ratio] 29.43 kg/m2 Jenaro Lynch Other [facility] Other 04-06-2023 13:15-0400 Body weight 95.71 kg Jenaro Lynch Other [facility] Other 04-06-2023 13:15-0400 Diastolic blood pressure 70 mm[Hg] Jenaro Lynch Other [facility] Other 04-06-2023 13:15-0400 Respiratory rate 18 /min Jenarogorge Fraustojoe Other [facility] Other 04-06-2023 13:15-0400 SaO2% (BldA) [Mass fraction] 97 % Jenaro Jettjoe Other [facility] Other 04-06-2023 13:15-0400 Systolic blood pressure 100 mm[Hg] Jenaro Lynch Other [facility] Other 03-15-2023 08:30-0400 Body height 180.34 cm Jenaro Lynch Other [facility] Other 03-15-2023 08:30-0400 Body mass index (BMI) [Ratio] 29.01 kg/m2 Jenaro Lynch Other [facility] Other 03-15-2023 08:30-0400 Body weight 94.35 kg Jenaro Lynch Other [facility] Other 03-15-2023 08:30-0400 Diastolic blood pressure 62 mm[Hg] Jenaro Lynch Other [facility] Other 03-15-2023 08:30-0400 Respiratory rate 16 /min Jenaro Lynch Other [facility] Other 03-15-2023 08:30-0400 SaO2% (BldA) [Mass fraction] 97 % Jenaro Lynch Other [facility] Other 03-15-2023 08:30-0400 Systolic blood pressure 88 mm[Hg] Jenaro Lynch Other [facility] Other 02-15-2023 10:04-0400 Body height 182.88 cm Jenaro Lynch Work Phone: [facility] [address] DO Work Phone: 02-15-2023 10:04-0400 Body mass index (BMI) [Ratio] 28.62 kg/m2 Jenaro Lynch Work Phone: [facility] [address] DO Work Phone: 02-15-2023 10:04-0400 Body surface area Derived from formula 2.18 m2 Jenaro Lynch Work Phone: [facility] [address] DO Work Phone: 02-15-2023 10:04-0400 Body weight 95.71 kg Jenaro Lynch Work Phone: [facility] [address] DO Work Phone: 02-15-2023 10:04-0400 Diastolic blood pressure 70 mm[Hg] Jenaro Lynch Work Phone: [facility] [address] DO Work Phone: 02-15-2023 10:04-0400 Heart rate 76 /min Jenaro Lynch Work Phone: [facility] [address] DO Work Phone: 02-15-2023 10:04-0400 Systolic blood pressure 102 mm[Hg] Jenaro Lynch Work Phone: [facility] [address] DO Work Phone: 01-30-2023 10:23-0400 Blood Pressure Location Yeyo ROWE [facility] 01-30-2023 10:23-0400 Diastolic blood pressure 74 mm[Hg] Yeyo ROWE [facility] 01-30-2023 10:23-0400 Heart rate 68 /min Yeyo ROWE [facility] 01-30-2023 10:23-0400 Respiratory rate 16 /min Yeyo ROWE [facility] 01-30-2023 10:23-0400 Systolic blood pressure 130 mm[Hg] Yeyo ROWE [facility] 01-11-2023 15:08-0400 Body height 180.34 cm Jenaro Lynch Work Phone: [facility] [employer] 600 DO Work Phone: 01-11-2023 15:08-0400 Body mass index (BMI) [Ratio] 30.13 kg/m2 Jenaro Lynch Work Phone: [facility] [employer] 600 DO Work Phone: 01-11-2023 15:08-0400 Body surface area Derived from formula 2.18 m2 Jenaro Lynch Work Phone: [facility] [employer] [address] DO Work Phone: 01-11-2023 15:08-0400 Body weight 97.98 kg Jenaro Lynch Work Phone: [facility] [employer] [address] DO Work Phone: 01-11-2023 15:08-0400 Diastolic blood pressure 86 mm[Hg] Jenaro Lynch Work Phone: [facility] [address] DO Work Phone: 01-11-2023 15:08-0400 Heart rate 74 /min Jenaro Lynch Work Phone: [facility] [employer] [address] DO Work Phone: 01-11-2023 15:08-0400 Systolic blood pressure 122 mm[Hg] Jenaro Lynch Work Phone: [facility] [address] DO Work Phone: 12-01-2022 12:45-0400 Body height 180.34 cm Jenaro Lynch Other [facility] [employer] Other 12-01-2022 12:45-0400 Body mass index (BMI) [Ratio] 29.73 kg/m2 Jenaro Lynch Other [facility] [employer] Other 12-01-2022 12:45-0400 Body weight 96.71 kg Jenaro Lynch Other [facility] [employer] Other 12-01-2022 12:45-0400 Diastolic blood pressure 70 mm[Hg] Jenaro Lynch Other [facility] [employer] Other 12-01-2022 12:45-0400 Respiratory rate 18 /min Jenaro Lynch Other [facility] [employer] Other 12-01-2022 12:45-0400 SaO2% (BldA) [Mass fraction] 94 % Jenaro Lynch Other [facility] [employer] Other 12-01-2022 12:45-0400 Systolic blood pressure 122 mm[Hg] Jenaro Lynch Other [place] [employer] Other 11-23-2022 11:38-0400 Blood Pressure Location Yeyo ROWE [facility] 11-23-2022 11:38-0400 Diastolic blood pressure 85 mm[Hg] Yeyo ROWE [facility] 11-23-2022 11:38-0400 Heart rate 76 /min Yeyo ROWE [facility] 11-23-2022 11:38-0400 Systolic blood pressure 130 mm[Hg] Yeyo ROWE [facility] 07-04-2022 10:30-0500 Body height 180.34 cm Jenaro Lynch Other [facility] Other 07-04-2022 10:30-0500 Body mass index (BMI) [Ratio] 29.43 kg/m2 Jenaro Lynch Other [facility] Other 07-04-2022 10:30-0500 Body weight 95.71 kg Jenaro Lynch Other [facility] Other 07-04-2022 10:30-0500 Diastolic blood pressure 86 mm[Hg] Jenaro Lynch Other [facility] Other 07-04-2022 10:30-0500 Respiratory rate 16 /min Jenaro Lynch Other [facility] Other 07-04-2022 10:30-0500 Systolic blood pressure 146 mm[Hg] Jenaro Lynch Other [facility] Other 02-15-2022 13:45-0400 Body height 180.34 cm Jenaro Lynch Other [facility] Other 02-15-2022 13:45-0400 Body mass index (BMI) [Ratio] 30.12 kg/m2 Jenaro Lynch Other [facility] Other 02-15-2022 13:45-0400 Body weight 97.98 kg Jenaro Jettjoe Other [facility] [employer] Other 02-15-2022 13:45-0400 Diastolic blood pressure 62 mm[Hg] Jenaro Lynch Other [facility] [employer] Other 02-15-2022 13:45-0400 Respiratory rate 16 /min Jenaro Lynch Other [facility] [employer] Other 02-15-2022 13:45-0400 SaO2% (BldA) [Mass fraction] 96 % Jenaro Lynch Other [facility] [employer] Other 02-15-2022 13:45-0400 Systolic blood pressure 100 mm[Hg] Jenaro Lynch Other [facility] [employer] Other 10-26-2021 10:01-0400 Body height 180.34 cm Jenaro Guerra Syed Work Phone: [facility] [address] DO Work Phone: 10-26-2021 10:01-0400 Body mass index (BMI) [Ratio] 29.99 kg/m2 Jenaro Guerra Syed Work Phone: [facility] [address] DO Work Phone: 10-26-2021 10:01-0400 Body surface area Derived from formula 2.17 m2 Jenaro Fraustojoe Work Phone: [facility] [address] DO Work Phone: 10-26-2021 10:01-0400 Body weight 97.52 kg Jenaro Fraustojoe Work Phone: [facility] [address] DO Work Phone: 10-26-2021 10:01-0400 Diastolic blood pressure 70 mm[Hg] Jenaro Lynch Work Phone: [facility] [employer] 250 DO Work Phone: 10-26-2021 10:01-0400 Heart rate 68 /min Jenaro Lynch Work Phone: [facility] [employer] 250 DO Work Phone: 10-26-2021 10:01-0400 Systolic blood pressure 104 mm[Hg] Jenaro Lynch Work Phone: [facility] [employer] 250 DO Work Phone: 10-19-2021 12:20-0400 Body height 180.34 cm Amina Kinsey[employer]DSave Other [facility] Other 10-19-2021 12:20-0400 Body mass index (BMI) [Ratio] 30.65 kg/m2 Amina [employer] Other [facility] Other 10-19-2021 12:20-0400 Body temperature 96.8 [degF] Amina KinseyMDSave Other [facility] Other 10-19-2021 12:20-0400 Body weight 99.7 kg Amina [employer] Other [facility] Other 10-19-2021 12:20-0400 Diastolic blood pressure 71 mm[Hg] Amina [employer] Other [facility] Other 10-19-2021 12:20-0400 Respiratory rate 18 /min Amina [employer] Other [facility] Other 10-19-2021 12:20-0400 SaO2% (BldA) [Mass fraction] 98 % Azjuan Bakhoujoe Other [facility] Other 10-19-2021 12:20-0400 Systolic blood pressure 111 mm[Hg] Amina Kinsyejoe Other [facility] Other 07-27-2021 14:00-0500 Body height 180.34 cm Jenaro Lynch Other [facility] Other 07-27-2021 14:00-0500 Body mass index (BMI) [Ratio] 30.4 kg/m2 Jenaro Lynch Other [facility] Other 07-27-2021 14:00-0500 Body weight 98.88 kg Jenaro Lynch Other [facility] Other 07-27-2021 14:00-0500 Diastolic blood pressure 76 mm[Hg] Jenaro Lynch Other [facility] Other 07-27-2021 14:00-0500 Respiratory rate 18 /min Jenaro Lynch Other [facility] Other 07-27-2021 14:00-0500 SaO2% (BldA) [Mass fraction] 98 % Jenaro Lynch Other [facility] Other 07-27-2021 14:00-0500 Systolic blood pressure 112 mm[Hg] Jenaro Lynch Other [facility] Other Encounters Encounter Date Encounter Type Care Provider Facility Start: 02-12-2024 ambulatory Yeyo Ley ty:CAL [facility] Start: 12-15-2023 End: 12-15-2023 ambulatory DO Jenaro Lynch Work Phone: [facility] Work Phone: Start: 12-15-2023 End: 12-15-2023 Departed Referred DO Jenaro Fraustos Work Phone: [facility] Start: 12-10-2023 Non-patient / Non-visit DO Phillip an Kuns Work Phone: [facility] Work Phone: Start: 12-09-2023 Non-patient / Non-visit DO Phillip an Kuns Work Phone: [facility] Work Phone: Start: 11-30-2023 End: 11-30-2023 ambulatory [facility] Start: 11-26-2023 Non-patient / Non-visit DO Phillip an Kuns Work Phone: [facility] Work Phone: Start: 11-23-2023 End: 11-23-2023 ambulatory [facility] Start: 11-15-2023 End: 11-15-2023 ambulatory MA[facility] Start: 11-15-2023 Non-patient / Non-visit DO Phillip an Kuns Work Phone: [facility] Work Phone: Start: 11-14-2023 End: 11-14-2023 Evaluation and management of inpatient [facility] Start: 11-07-2023 End: 11-14-2023 Evaluation and management of inpatient [facility] Start: 11-07-2023 End: 11-14-2023 Evaluation and management of inpatient [facility] Start: 10-24-2023 End: 10-24-2023 ambulatory [facility] Start: 10-24-2023 End: 10-24-2023 Encounter for preprocedural cardiovascular examination RAULITO INMAN [facility]ulatory Start: 10-24-2023 End: 10-24-2023 Office outpatient visit 25 minutes Raulito Inman MD Work Phone: [facility] Comment on above: History of PTCA; Hyperlipidemia, unspecified hyperlipidemia type; Encounter for pre-operative cardiovascular clearance; Former smoker Start: 10-24-2023 End: 10-24-2023 Patient encounter status Raulito Inman MD Work Phone: [facility] Work Phone: Start: 10-23-2023 End: 10-23-2023 ambulatory XXXX NONE Facility:[facility] Start: 10-23-2023 End: 10-23-2023 Patient encounter procedure Padmini Montes [facility] Start: 10-19-2023 End: 10-20-2023 ambulatory Padmini Montes Facility:[facility] Start: 10-19-2023 ambulatory Padmini Montes Facili ty:[facility] Start: 10-19-2023 End: 10-19-2023 Patient encounter procedure Padmini Montes [facility] Start: 10-18-2023 End: 10-18-2023 ambulatory PADMINI MONTES [facility] Start: 10-06-2023 Non-patient / Non-visit DO Phillip Lynch Work Phone: [facility] Work Phone: Start: 10-05-2023 End: 10-05-2023 ambulatory DO Jenaro Lynch Work Phone: [facility] Work Phone: Start: 10-05-2023 End: 10-05-2023 Departed Referred DO Jenaro Lynch Work Phone: [facility] Start: 10-05-2023 Non-patient / Non-visit DO Phillip an Kuns Work Phone: [facility] Work Phone: Start: 10-04-2023 Non-patient / Non-visit DO Phillip an Kuns Work Phone: [facility] Work Phone: Start: 10-03-2023 Non-patient / Non-visit DO Phillip an Kuns Work Phone: [facility] Work Phone: Start: 10-02-2023 End: 10-02-2023 ambulatory DO Jenaro Kuns Work Phone: [facility] Work Phone: Start: 10-02-2023 End: 10-02-2023 Departed Referred DO Jenaro Fraustos Work Phone: [facility] Start: 10-02-2023 Non-patient / Non-visit DO Phillip an Kuns Work Phone: [facility] Work Phone: Start: 10-01-2023 Non-patient / Non-visit DO Phillip an Kuns Work Phone: [facility] Work Phone: Start: 09-30-2023 Non-patient / Non-visit DO Phillip an Kuns Work Phone: [facility] Work Phone: Start: 09-27-2023 Non-patient / Non-visit DO Phillip an Kuns Work Phone: [facility] Work Phone: Start: 09-21-2023 End: 09-21-2023 ambulatory DO Jenaro Kuns Work Phone: [facility] Work Phone: Start: 09-21-2023 End: 09-21-2023 Departed Referred DO Jenaro Kuns Work Phone: [facility] Start: 09-21-2023 Non-patient / Non-visit DO Phillip an Kuns Work Phone: [facility] Work Phone: Start: 09-18-2023 Non-patient / Non-visit DO Phillip an Kuns Work Phone: [facility] Work Phone: Start: 09-08-2023 End: 09-08-2023 ambulatory Yeyo ROWE Facility:[facility] Start: 09-08-2023 End: 09-08-2023 Patient encounter procedure Yeyo ROWE [facility] Start: 08-10-2023 Non-patient / Non-visit DO Phillip an Kuns Work Phone: [facility] Work Phone: Start: 08-08-2023 Non-patient / Non-visit DO Phillip an Kuns Work Phone: [facility] Work Phone: Start: 08-07-2023 Non-patient / Non-visit DO Phillip an Kuns Work Phone: [facility] Work Phone: Start: 08-06-2023 Non-patient / Non-visit DO Phillip an Kuns Work Phone: [facility] Work Phone: Start: 08-05-2023 Non-patient / Non-visit DO Phillip an Kuns Work Phone: [facility] Work Phone: Start: 08-04-2023 Non-patient / Non-visit DO Phillip Lynch Work Phone: [facility] Work Phone: Start: 08-03-2023 Non-patient / Non-visit DO Phillip Lynch Work Phone: [facility] Work Phone: Start: 07-31-2023 Registered Recurring DO Jenaro Lynch Work Phone: [facility] - [facility]/P Work Phone: Start: 07-31-2023 ambulatory Jenaro Lynch Facility:[facility] Start: 07-26-2023 Non-patient / Non-visit DO Phillip gorge Syed Work Phone: [facility] Work Phone: Start: 07-12-2023 End: 07-12-2023 Emergency department patient visit DO Jenaro Lynch Work Phone: [facility] Work Phone: Start: 07-07-2023 End: 07-07-2023 ambulatory Jenaro Lynch Other [facility] Other Start: 07-07-20[address] Jenaro Lynch [facility] Start: 07-03-2023 End: 07-03-2023 ambulatory Yeyo ROWE Facility:[facility] Start: 06-26-2023 End: 06-26-2023 ambulatory Jenaro Lynch Other [facility] Other Start: 06-26-2023 Telephone encounter Jenaro [facility] Start: 06-02-2023 End: 06-02-2023 ambulatory Yeyo ROEW Facility: [facility] Start: 06-02-2023 End: 06-02-2023 Patient encounter procedure Yeyo Blum ROWE [facility] Start: 05-16-2023 End: 05-16-2023 ambulatory Jenaro Lynch Other [facility] Other Start: 05-16-[address] Jenaro Lynch [facility] Start: 05-03-2023 End: 05-03-2023 ambulatory Yeyo ROWE Facility: [facility] Start: 05-03-2023 End: 05-03-2023 Patient encounter procedure Yeyo R ROWE [facility] Start: 04-28-2023 End: 04-28-2023 ambulatory Jenaro Lynch Other [facility] Other Start: 04-28-[address] Jenaro Lynch [facility] Start: 04-18-2023 End: 04-18-2023 ambulatory Yeyo Viktoria SOLEDAD Facility:[facility] Start: 04-18-2023 End: 04-18-2023 Patient encounter procedure Yeyo R ROWE [facility] Start: 04-17-2023 ambulatory Yeyo ROWE Facili ty:[facility] Start: 04-13-2023 End: 04-13-2023 ambulatory Yeyo ROWE Facility:[id number] Start: 04-11-2023 End: 04-11-2023 ambulatory Jenaro Lynch Other [facility] Other Start: 04-11-[address] Jenaro Lynch [facility] Start: 04-06-2023 End: 04-06-2023 ambulatory Jenaro Lynch Other [place] [employer] Other Start: 04-06-2023 Encounter for other preprocedural examination Jenaro Syed [facility] Start: 04-06-2023 Office outpatient vi sit 25 minutes Jenaro Syed [facility] Start: 03-28-2023 End: 03-28-2023 ambulatory Jenaro Lynch Other [facility] Other Start: 03-28-2023 Telephone encounter Jenaro Lynch [facility] Start: 03-20-2023 ambulatory Yeyo ROWE Facili ty:[facility] Start: 03-15-2023 End: 03-15-2023 ambulatory Yeyo ROWE [facility] Other Start: 03-15-2023 Office outpatient vi sit [address] [facility] Start: 03-10-2023 End: 03-10-2023 ambulatory Jenaro Fraustojoe Other [facility] Other Start: 03-10-2023 Telephone encounter Jenaro Lynch [facility] Start: 02-15-2023 Office outpatient vi sit 15 minutes Jenaro Lynch Work Phone: [facility] 250 DO Work Phone: Start: 02-15-2023 ambulatory Dolores Feldman Facility:[id number] Start: 02-14-2023 End: 02-14-2023 ambulatory Yeyo ROWE Facility:[facility] Start: 02-14-2023 End: 02-14-2023 Patient encounter procedure Yeyo ROWE [facility] Start: 02-08-2023 End: 02-08-2023 ambulatory Yeyo ROWE Facility:[facility] Start: 02-08-2023 End: 02-08-2023 Patient encounter procedure Yeyo ROWE [facility] Start: 01-30-2023 End: 01-30-2023 ambulatory Yeyo ROWE Facility:[facility] Start: 01-30-2023 End: 01-30-2023 Patient encounter procedure Yeyo ROWE [facility] Start: 01-25-[address] Jenaro Lnych Facility:[id number] Start: 01-17-2023 End: 01-17-2023 ambulatory Jenaro Lynch Other [facility] Other Start: 01-17-[address] Jenaro Lynch [facility] Start: 01-11-2023 Office outpatient vi sit 25 minutes Jenaro Lynch Work Phone: [facility] 600 DO Work Phone: Start: 01-11-2023 ambulatory Dolores Feldman Facility:[id number] Start: 12-28-2022 End: 12-28-2022 ambulatory Yeyo ROWE Facility:[facility] Start: 12-28-2022 End: 12-28-2022 Patient encounter procedure Yeyo ROWE [facility] Start: 12-21-2022 ambulatory Yeyo ROWE Facili ty:[facility] Start: 12-01-2022 End: 12-01-2022 ambulatory Jenaro Lynch Other [facility] Other Start: 12-01-2022 Office outpatient vi sit [address] [facility] Start: 11-30-2022 ambulatory Yeyo ROWE Facility :[facility] Start: 11-23-2022 End: 11-23-2022 Patient encounter procedure Yeyo ROWE [facility] Start: 10-07-2022 End: 10-07-2022 ambulatory Jenaro Lynch Other [facility] Other Start: 10-07-2022 Telephone encounter Jenaro Lynch [facility] Start: 09-27-2022 End: 09-27-2022 ambulatory DO Jenaro Fraustojoe Work Phone: [facility] Work Phone: Start: 09-27-2022 End: 09-27-2022 Patient encounter procedure DO Jenaro Lynch Work Phone: [facility] [place] Work Phone: Start: 09-21-2022 End: 09-21-2022 ambulatory Jenaro Lynch Other [facility] Other Start: 09-21-2022 Telephone encounter Jenaro Lynch [facility] Start: 09-14-2022 End: 09-14-2022 ambulatory Jenaro Lynch Other [facility] Other Start: 09-14-2022 Telephone encounter Jenaro Lynch [facility] Start: 09-02-2022 End: 09-02-2022 Patient encounter procedure DO Jenarogorge Fraustojoe Work Phone: [facility] [place] Work Phone: Start: 08-25-2022 End: 08-25-2022 ambulatory Tona Mapus Other [facility] Other Start: 08-25-2022 Telephone encounter Doris Marianous [facility] Start: 08-22-2022 End: 08-22-2022 ambulatory Jenaro Lynch Other [facility] Other Start: 08-22-2022 Telephone encounter Jenaro Lynch [facility] Start: 08-05-2022 End: 08-05-2022 ambulatory Jenaro Lynch Other [facility] Other Start: 08-05-2022 Telephone encounter Jenaro Lynch [facility] Start: 08-04-2022 End: 08-04-2022 ambulatory Jenaro Lynch Other [facility] Other Start: 08-04-2022 Telephone encounter Jenaro Lynch [facility] Start: 07-28-2022 End: 07-28-2022 ambulatory Jenaro Lynch Other [facility] Other Start: 07-28-2022 Telephone encounter Jenaro Lynch [facility] Start: 07-25-2022 End: 07-25-2022 ambulatory Jenarogorge Lynch Other [facility] Other Start: 07-25-2022 Nursing evaluation o f patient and report Jenaro Lynch [facility] Start: 07-19-2022 End: 07-19-2022 ambulatory Jenaro Lynch Other [facility] Other Start: 07-19-2022 Telephone encounter Jenaro Lynch [facility] Start: 07-15-2022 End: 07-15-2022 ambulatory Jenarogorge Lynch Other [facility] Other Start: 07-15-2022 Telephone encounter Jenaro Lynch [facility] Start: 07-13-2022 End: 07-13-2022 ambulatory Jenarogorge Lynch Other [facility] Other Start: 07-13-2022 Nursing evaluation o f patient and report Jenaro Lynch [facility] Start: 02-07-[address] Raulito gutierrez [facility] Facility: Start: 07-05-2022 End: 07-05-2022 ambulatory Jenaro Lynch Other [facility] Other Start: 07-05-2022 Telephone encounter Jenaro Lynch [facility] Start: 07-05-2022 Rx Renewal Jenaro Lynch Work Phone: [facility] 250 DO Work Phone: Start: 07-04-2022 End: 07-04-2022 ambulatory Jenaro Lynch Other [facility] Other Start: 07-04-2022 Office outpatient vi sit 25 minutes Jenaro Lynch [facility] Start: 06-30-2022 End: 06-30-2022 ambulatory Jenaro Lynch Other [facility] Other Start: 06-30-2022 Telephone encounter Jenaro Lynch [facility] Start: 05-25-2022 End: 05-25-2022 ambulatory Jenaro Lynch Other [facility] Other Start: 05-25-2022 Telephone encounter Jenaro Lynch [facility] Start: 04-25-2022 End: 04-25-2022 ambulatory Jenaro Lynch Other [facility] Other Start: 04-25-2022 Telephone encounter Jenaro Lynch [facility] Start: 04-19-2022 End: 04-19-2022 ambulatory Jenaro Lynch Other [facility] Other Start: 04-19-2022 Telephone encounter Jenaro Lynch [facility] Start: 03-22-2022 End: 03-22-2022 ambulatory Jenaro Lynch Other [facility] Other Start: 03-22-2022 Telephone encounter Jenarogorge Lynch [facility] Start: 03-01-2022 End: 03-01-2022 ambulatory Jenaro Jettjoe Other [facility] Other Start: 03-01-2022 Telephone encounter Jenarogorge Lynch [facility] Start: 02-18-2022 End: 02-18-2022 ambulatory Jenaro Jettjoe Other [facility] Other Start: 02-18-2022 Telephone encounter Jenarogorge Lynch [facility] Start: 02-15-2022 End: 02-15-2022 ambulatory Verona Whaley Other [facility] Other Start: 02-15-2022 Office outpatient vi sit 25 minutes Jenaro Lynch [facility] Start: 02-15-2022 Telephone encounter Verona Whaley [facility] Start: 01-21-2022 End: 01-21-2022 ambulatory Jenaro Fraustojoe Other [facility] Other Start: 01-21-2022 Telephone encounter Jenarogorge Lynch [facility] Start: 01-19-2022 End: 01-19-2022 ambulatory Jenaro Fraustojoe Other [facility] Other Start: 01-19-2022 Telephone encounter Jenarogorge Lynch [facility] Start: 01-13-2022 End: 01-13-2022 ambulatory Jenaro Fraustojoe Other [facility] Other Start: 01-13-2022 Telephone encounter Jenaro Syed [facility] Start: 12-23-2021 End: 12-23-2021 ambulatory Jenaro Lynch Other [facility] Other Start: 12-23-2021 Telephone encounter Jenaro Fraustojoe [facility] Start: 11-24-2021 End: 11-24-2021 ambulatory Jenarogorge Lynch Other [facility] Other Start: 11-24-2021 Telephone encounter Jenarogorge Lynch [facility] Start: 11-03-2021 Rx Renewal Jenaro Lynch Work Phone: [facility] [employer] 250 DO Work Phone: Start: 10-26-2021 Office outpatient vi sit 25 minutes Jenaro Lynch Work Phone: [facility] [employer] 250 DO Work Phone: Start: 10-25-2021 End: 10-25-2021 ambulatory Jenaro Syed Other [facility] Other Start: 10-25-2021 Telephone encounter Jenaro Lynch [facility] Start: 10-19-2021 End: 10-19-2021 ambulatory Azjuan Kinseys Other [facility] Other Start: 10-19-2021 Office outpatient vi sit 25 minutes Aziz Bakhous [facility] Start: 10-18-2021 End: 10-18-2021 ambulatory Aziz Bakhous Other [facility] Other Start: 10-18-2021 Telephone encounter Azjuan Kinseys [facility] Start: 10-12-2021 End: 10-13-2021 ambulatory DUARTE HENRY . Facility: Start: 10-08-2021 End: 10-08-2021 ambulatory Jenarogorge Lynch Other [facility] Other Start: 10-08-2021 Telephone encounter Jenarogorge Fraustojoe [facility] Start: 09-22-2021 End: 09-22-2021 ambulatory Jenaro Lynch Other [facility] Other Start: 09-22-2021 Telephone encounter Jenaro Lynch [facility] Start: 09-21-2021 End: 09-21-2021 ambulatory Jenaro Lynch Other [facility] Other Start: 09-21-2021 Telephone encounter Jenaro Lynch [facility] Start: 08-09-2021 End: 08-09-2021 ambulatory Jenaro Lynch Other [facility] Other Start: 08-09-2021 Telephone encounter Jenaro Lynch [facility] Start: 08-02-2021 End: 08-02-2021 ambulatory Jenaro Lynch Other [facility] Other Start: 08-02-2021 Telephone encounter Jenaro Lynch [facility] Start: 07-27-2021 End: 07-27-2021 ambulatory Jenaro Lynch Other [facility] Other Start: 07-27-2021 Office outpatient vi sit 25 minutes Jenaro Lynch [facility] Start: 06-23-2021 End: 06-23-2021 ambulatory Jenaro Lynch Other [facility] Other Start: 06-23-2021 Telephone encounter Jenaro Lynch [facility] Start: 06-22-2021 Rx Renewal Jenaro Lynch Work Phone: [facility] 250 DO Work Phone: Start: 05-03-2021 End: 05-03-2021 ambulatory Jenaro Lynch Other [facility] Other Start: 05-03-2021 Telephone [address] Jenaro Lynch [facility] Procedures Date Procedure Procedure Detail Performing Clinician [...] 10-02-2023 Acid Fast Smear DO Jose Angel Lynhc Work Phone: Start: 10-02-2023 AFB Specimen Processing [...] procedure 10/21/2024 8:00 AM EDT Office Visit [facility] [address] [place] [address] Dolores Feldman, DOCTOR OF VETERINARY MEDICINE-PHARMACEUTICAL WORKER [address] [place] [address] [facility] Start: 02-04-2024 Influenza vaccination Influenza Vaccine (Season Ended) [facility] Start: 11-15-2023 FUV, Provider: Raulito Inman, Status: Pen, Time: 2:40 PM FUV, Provider: Raulito Inman, Status: Pen, Time: 2:40 PM [facility] 250 DO Work Phone: Start: 10-02-2023 Acid Fast Culture Acid Fast Culture [facility] Start: 09-30-2023 Blood Culture 1 Blood Culture 1 [facility] Start: 09-30-2023 Blood Culture 2 Blood Culture 2 [facility] Start: 09-30-2023 Wound Culture Wound Culture [facility] Start: 09-21-2023 Abscess Culture Abscess Culture [facility] Start: 08-10-2023 Acid Fast Culture Acid Fast Culture [facility] Start: 08-05-2023 Wound Culture Wound Culture [facility] Start: 07-12-2023 Duplex scan of lower limb veins US venous duplex LE BI [facility] Start: 07-12-2023 US Lower extremity vein - bilateral [facility] Start: 07-12-2023 Duplex scan veins of upper limb US venous duplex UE LT [facility] Start: 07-12-2023 US Upper extremity vein - left [facility] Start: 02-15-2023 FUV, Provider: Dolores Velazquez, Status: Pen, Time: 10:00 AM FUV, Provider: Dolores Velazquez, Status: Pen, [facility]: 10:[facility] Start: 02-03-2023 COVID-19 Vaccine ( season) COVID-19 Vaccine ( season) [facility] Start: 01-25-2023 STRESS NUC, Provider: [facility]IS[facility] NUCLEAR 01,[id number], Status: Pen, Time: 8:30 AM STRESS NUC, Provider: CHARIS[facility] NUCLEAR 01,[id number], Status: Pen, Time: 8:30 AM [facility] 600 DO Work Phone: Start: 07-12-2022 FUV, Provider: Raulito Inman, Status: Pen, Time: 9:20 AM FUV, Provider: Raulito Inmna, Status: Pen, Time: 9:20 AM [facility] 250 DO Work Phone: Start: 10-26-2021 FUV, Provider: Raulito Inman, Status: Pen, Time: 9:30 AM FUV, Provider: Raulito Inman, Status: Pen, Time: 9:30 AM [facility] 250 DO Work Phone: Start: 03-05-2019 Pneumococcal Vaccine: Pediatrics (0 to 5 Years) and At-Risk Patients (6 to 64 Years) (2 of 2 - PCV) Pneumococcal Vaccine: Pediatrics (0 to 5 Years) and At-Risk Patients (6 to 64 Years) (2 of 2 - PCV) [facility] Start: 2015 Zoster Vaccines (1 of 2) Zoster Vaccines (1 of 2) [facility] Start: 1987 DTaP/Tdap/Td Vaccines (1 - Tdap) DTaP/Tdap/Td Vaccines (1 - Tdap) [facility] Start: 1984 Hepatitis B Vaccines (1 of 3 - 19+ 3-dose series) Hepatitis B Vaccines (1 of 3 - 19+ 3-dose series) [facility] Start: 1984 Urine screening for protein Diabetes: Urine Protein Screening [facility] Start: 1983 Hepatitis C screening Hepatitis C Screening [facility] Start: 1975 Diabetic foot examination Diabetes: Foot Exam [facility] Start: 1975 Glaucoma screening Diabetes: Retinopathy Screening [facility] Start: 1966 MMR Vaccines (1 of 1 - Standard series) MMR Vaccines (1 of 1 - Standard series) [facility] Start: 1965 Hemoglobin A1c measurement Diabetes: Hemoglobin A1C [facility] Start: 1965 HIV screening HIV Screening [facility] Start: 1965 Lipid panel Lipid Panel [facility] Start: 1965 Screening for malignant neoplasm of colon [facility] Start: 1965 Yearly Adult Physical Yearly Adult Physical [facility] Patient Education Dependent Edema (DC) [facility] Work Phone: Patient referral [facility] Work Phone: Immunizations Immunization Date Immunization Notes Care Provider Sachin pettit 11-13-2020 Pfizer-BioNTech COVI D-19 Vacc 30 MCG/0.3ML Intramuscular Suspension Jenaro Lynch Work Phone: [facility] 10-23-2020 Pfizer-BioNTech COVI D-19 Vacc 30 MCG/0.3ML Intramuscular Suspension Jenaro Lynch Work Phone: [facility] 01-14-2019 influenza, seasonal, injectable Jenaro Lynch Other [facility] 01-14-2019 influenza virus vacc ine, unspecified formulation Yeyo ROWE [facility] 04-02-2018 influenza virus vacc ine, unspecified formulation Yeyo ROWE [facility] 04-02-2018 influenza, injectabl e, quadrivalent, preservative free DO Jenaro Lynch Work Phone: [facility] 03-05-2018 influenza virus vacc ine, unspecified formulation [facility]: 03-05-2018 pneumococcal polysaccharide vaccine, 23 valent [facility] Work Phone: 03-07-2016 influenza virus vacc ine, unspecified formulation Yeyo ROWE [facility] 03-07-2016 influenza, injectabl e, quadrivalent, preservative free Jenaro Lynch Work Phone: [facility] 600 DO Work Phone: 02-22-2016 pneumococcal polysaccharide vaccine, 23 valent Jenaro Lynch Work Phone: [facility] Payers Date Payer Category Payer Unknown 2023 Self-pay [id number] 2022 Private Health Insurance [id number] 2022 Private Health Insurance [id number] 2022 Private Health Insurance [id number] 2022 Medicaid [id number] 1965 Unknown [id number] 2.16.84 0.1.760187.3.579.2.593 1965 Unknown [id number] 2.16.8 40.1.240754.3.579.2.1068 1965 Unknown [id number] 2.16. 840.1.425259.3.579.2.356 1965 Unknown [id number] 2.16. 840.1.349501.3.579.2.356 1965 Unknown [id number] 2.16. 840.1.380011.3.579.2.356 1965 Unknown [id number] 2.16.8 40.1.256508.3.579.2.1244 1965 Unknown [id number] 2.16.8 40.1.830997.3.579.2.727 1965 Unknown [id number] 2.16.8 40.1.331385.3.579.2.1286 1965 Unknown [id number] 2.16.8 40.1.523102.3.579.2.1286 1965 Unknown [id number] 2.16.8 40.1.343205.3.579.2.128 1965 Unknown [id number] 2.16.8 40.1.465752.3.579.2.1285 1965 Unknown [id number] 2.16.8 40.1.600600.3.579.2.1285 1965 Unknown [id number] 2.16.8 40.1.209486.3.579.2.1285 1965 Unknown [id number] 2.16.8 40.1.686163.3.579.2.1285 1965 Unknown [id number] 2.16.8 40.1.112142.3.579.2.1285 1965 Unknown [id number] 2.16.8 40.1.396564.3.579.2. 1965 Unknown [id number] 2.16.8 40.1.749923.3.579.2. 1965 Unknown [id number] 2.16.8 40.1.139641.3.579.2. 1965 Unknown [id number] 2.16.8 40.1.295952.3.579.2.7 1965 Unknown [id number] 2.16.8 40.1.103262.3.579.2.72 1965 Unknown [id number] 2.16.8 40.1.922576.3.579.2.727 1965 Unknown [id number] 2.16.8 40.1.861955.3.579.2.72 1965 Unknown [id number] 2.16.8 40.1.613157.3.579.2.72 1965 Unknown [id number] 2.16.8 40.1.759093.3.579.2.72 1965 Unknown [id number] 2.16.8 40.1.476920.3.579.2.727 1965 Unknown [id number] 2.16.8 40.1.432748.3.579.2.727 1965 Unknown [id number] 2.16.8 40.1.109724.3.579.2.727 1965 Unknown [id number] 2.16.8 40.1.571239.3.579.2.727 1965 Unknown [id number] 2.16.8 40.1.167483.3.579.2.727 1965 Unknown [id number] 2.16.8 40.1.590399.3.579.2.727 1965 Unknown [id number] 2.16.8 40.1.108403.3.579.2.727 1965 Unknown [id number] 2.16.8 40.1.238120.3.579.2.1286 1959 Unknown [id number] 2.1 6.840.1.806857.19 Unknown [id number] 2.16.8 40.1.395305.3.579.2.531 Unknown [id number] 2.16.8 40.1.651041.3.579.2.531 Unknown [id number] 2.16.8 40.1.678756.3.579.2.531 Unknown [id number] 2.16.8 40.1.766106.3.579.2.531 Unknown [id number] 2.16.8 40.1.332472.3.579.2.531 Unknown [id number] 2.16.8 40.1.467765.3.579.2.531 Social History Date Type Detail Facility Start: 08-08-2023 Caffeine use Caffeine use [employer] Other Comment on above: 2 cups coffee, 4-6 c ups tea daily, occaional soda; qauit 07/2020; Start: 08-08-2023 Sex Assigned At F [facility] Start: 07-14-2020 End: 07-12-2023 Tobacco smoking status NHIS Smoker (finding) [facility] Start: 1965 Sex Assigned At Male [facility] Start: 11-23-2022 End: 10-23-2023 Tobacco smoking status Heavy tobacco smoker (finding) [facility] Tobacco smoking status Never [facility] Start: 10-24-2023 Tobacco smoking stat us NHIS Ex-smoker [facility] End: 06-05-2020 History of tobacco use Cigarette Smoker [facility] Work Phone: Start: 10-24-2023 Tobacco use and exposure Smokeless tobacco non-user [facility] Work Phone: Start: 10-24-2023 Alcoholic beverage intake Lifetime non-drinker (finding) [facility] Work Phone: Start: 1965 Sex assigned at Not on file [facility] Work Phone: Start: 10-14-2023 End: 10-24-2023 Exposure to SARS-CoV-2 (event) Not sure [facility] Medical Equipment Procedure Code Equipment [...] bilia ry stentMultiple peripheral artery stent, bare-metal ()[id number] FDA Start: 07-14-2020 Functional Status Date Assessment Result Facility 10-23-2023 Functional Status No [facility] 06-02-2023 Functional Status N/A [facility] 02-14-2023 Functional Status N/A [facility] 01-30-2023 Functional Status N/A [facility] 11-23-2022 Functional Status N/A [facility] Charisse Clinical Notes 06-23-2021 to 10-24-2023 Raulito [...] discussion and plan. documented in this encounter [facility] Work Phone: 10-24-2023 Instructions Rosemary [...] a cardiac standpoint documented in this encounter [facility] Work Phone: 07-13-2023 Hospital Discharge instructions Follow Up Care 07/13/2023 12:04:02 With:SOLEDAD HERRERA, Yeyo Blum, URL Address: [address] [place] [address]- When: Unknown [facility] 06-26-2023 Evaluation note Encounter Date Diagnosis Assessment Notes Jun, Hyperlipidemia (ICD-10 - E78.5) [facility] Other [id number] Hospital Discharge instructions Patient Education 06/02/2023 11:57:43 [...] urethra. Follow these instructions at home: Take mbok-jeo-dnzvyoe and prescription medicines only as told by [...] provider. Document Revised: 12/08/2021 Document Reviewed: 12/08/2021 Surveypal Patient Education 2022 [employer]. Follow Up Care 06/01/2023 14:05:36 With:SOLEDAD HERRERA, Yeyo Blum, URL Address: [address] [place] [address]- When: Unknown [facility]12[facility] Evaluation note* Encounter Date Diagnosis Assessment Notes Treatment Notes Treatment Clinical Notes May, 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) [facility] Other 11-24-2023 Evaluation note* Encounter Date Diagnosis Assessment Notes Treatment Notes Treatment Clinical Notes Apr, Diabetic nephropathy (ICD-10 - E11.21) [facility] Other 11-07-2023 Evaluation note* Encounter Date Diagnosis Assessment Notes Treatment Notes Treatment Clinical Notes Apr, Left arm pain (ICD-10 - M79.602) [facility] Other 11-02-2023 Evaluation note* Encounter Date Diagnosis [...] and to have his surgery as scheduled. 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. He was found to have developed [...] to continue to montior this at home. [facility] Other 10-09-2023 Note [id number] 02-14-2023 Hospital Discharge instructions Patient [...] including vitamins, herbs, eye drops, creams, and xlto-lxf-wxyhxxo medicines. Any problems you or family members [...] provider tells you to take them. Taking xfov-nhj-hifdlac medicines, vitamins, herbs, and supplements. Surgery safety [...] provider. Document Revised: 02/15/2022 Document Reviewed: 02/15/2022 Surveypal Patient Education 2022 [employer]. [facility]09-12-2023 Note [id number]:127[facility] 02-14-2023 [id number]:127[facility]08-28-2023 Hospital Discharge instructions Patient Education [...] including vitamins, herbs, eye drops, creams, and kpok-zel-avbiidn medicines. ?Whether you are or may be [...] provider. Document Revised: 02/02/2022 Document Reviewed: 12/25/2020 Surveypal Patient Education 2022 [employer]. 01/30/2023 11:22:30 Cystoscopy Cystoscopy Cystoscopy is a [...] including vitamins, herbs, eye drops, creams, and gqew-rqn-hazwonr medicines. Any problems you or family members [...] provider tells you to take them. Taking kjne-jlr-lnpwkhb medicines, vitamins, herbs, and supplements. Tests You [...] Follow these instructions at home: Medicines Take gocm-ojf-nlyyaif and prescription medicines only as told by [...] provider. Document Revised: 02/02/2022 Document Reviewed: 01/01/2021 Surveypal Patient Education 2022 [employer]. Follow Up Care 11/23/2022 13:02:56 With:SOLEDAD HERRERA, Yeyo Blum, URL Address: [facility] [address] [place] [address]- [phone] When: Unknown Comments:sched cysto/uros [facility] 08-15-2023 Evaluation note* Encounter Date Diagnosis Assessment Notes Treatment Notes Treatment Clinical Notes Jan, Diabetic nephropathy (ICD-10 - E11.21) [facility] Other 06-29-2023 Evaluation note* Encounter Date Diagnosis [...] reviewed. 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 [facility] Other 06-21-2023 Hospital Discharge instructions Patient Education [...] provider. Document Revised: 08/11/2021 Document Reviewed: 05/07/2021 Surveypal Patient Education 2021 [employer]. [facility] 09/14/2022 14:23:26 With:SOLEDAD HERRERA, Yeyo Blum, URL Address: [facility] [address] [place] [address]- When: Unknown [facility] 05-05-2023 Evaluation note* Encounter Date Diagnosis Assessment Notes Treatment Notes Treatment Clinical Notes October, Erectile dysfunction, unspecified erectile dysfunction type (ICD-10 - N52.9) [facility] Other 04-19-2023 Evaluation note* Encounter Date Diagnosis Assessment Notes Treatment Notes Treatment Clinical Notes Sep, 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) [facility] Other 04-12-2023 Evaluation note* Encounter Date Diagnosis Assessment Notes Treatment Notes Treatment Clinical Notes Sep, 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) Sep, 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) [facility] Other 03-20-2023 Evaluation note* Encounter Date Diagnosis Assessment Notes Treatment Notes Treatment Clinical Notes Aug, Diabetic nephropathy (ICD-10 - E11.21) [facility] Other 03-03-2023 Evaluation note* Encounter Date Diagnosis Assessment Notes Treatment Notes Treatment Clinical Notes Aug, Pain in right leg (ICD-10 - M79.604) [facility] Other 03-02-2023 Evaluation note* Encounter Date Diagnosis Assessment Notes Treatment Notes Treatment Clinical Notes Aug, Pain in right leg (ICD-10 - M79.604) [facility] Other 02-20-2023 Evaluation note* Encounter Date Diagnosis Assessment Notes Treatment Notes Treatment Clinical Notes Jul, Intractable episodic headache, unspecified headache type (ICD-10 - R51.9) [facility] Other 02-14-2023 Evaluation note* Encounter Date Diagnosis Assessment Notes Treatment Notes Treatment Clinical Notes Jul, Acute intractable headache, unspecified headache type (ICD-10 - R51.9) [facility] Other 02-08-2023 Evaluation note* Encounter Date Diagnosis Assessment Notes Treatment Notes Treatment Clinical Notes Jul, Headache (ICD-10 - R51.9) [facility] Other 01-30-2023 Evaluation note* Encounter Date Diagnosis [...] medication and we will continue to monitor. [facility] Other 12-21-2022 Evaluation note* Encounter Date Diagnosis Assessment Notes Treatment Notes Treatment Clinical Notes May, Diabetic nephropathy (ICD-10 - E11.21) [facility] Other 11-21-2022 Evaluation note* Encounter Date Diagnosis Assessment Notes Treatment Notes Treatment Clinical Notes Apr, Diabetic nephropathy (ICD-10 - E11.21) [facility] Other 11-15-2022 Evaluation note* Encounter Date Diagnosis Assessment Notes Treatment Notes Treatment Clinical Notes Apr, Pain in right leg (ICD-10 - M79.604) [facility] Other 10-18-2022 Evaluation note* Encounter Date Diagnosis Assessment Notes Treatment Notes Treatment Clinical Notes Mar, Diabetic nephropathy (ICD-10 - E11.21) [facility] Other 09-13-2022 Evaluation note* Encounter Date Diagnosis Assessment Notes Treatment Notes Treatment Clinical Notes Feb, Hypertensive chronic kidney disease with stage 1 through stage 4 chronic kidney disease, or unspecified chronic kidney disease (ICD-10 - I12.9) [facility] Other 09-13-2022 Evaluation note* Encounter Date Diagnosis [...] scheduled. 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 Feb, Pain in right leg [...] Noted upon review of blood work results. [facility] Other 08-19-2022 Evaluation note* Encounter Date Diagnosis Assessment Notes Treatment Notes Treatment Clinical Notes Jan, Diabetic nephropathy (ICD-10 - E11.21) [facility] Other 08-17-2022 Evaluation note* Encounter Date Diagnosis Assessment Notes Treatment Notes Treatment Clinical Notes Jan, Diabetic nephropathy (ICD-10 - E11.21) [facility] Other 07-21-2022 Evaluation note* Encounter Date Diagnosis Assessment Notes Treatment Notes Treatment Clinical Notes Dec, Diabetic nephropathy (ICD-10 - E11.21) [facility] Other 06-22-2022 Evaluation note* Encounter Date Diagnosis Assessment Notes Treatment Notes Treatment Clinical Notes Nov, Diabetic nephropathy (ICD-10 - E11.21) [facility] Other 05-23-2022 Evaluation note* Encounter Date Diagnosis Assessment Notes Treatment Notes Treatment Clinical Notes October, Diabetic nephropathy (ICD-10 - E11.21) [facility] Other 05-17-2022 Evaluation note* Encounter Date Diagnosis [...] E11.59) October, 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 Inman. For this October, Other He did quit smoking since July 2020 [facility] Other 05-16-2022 Evaluation note* Encounter Date Diagnosis Assessment Notes Treatment Notes Treatment Clinical Notes October, Hypertensive chronic kidney disease with stage 1 through stage 4 chronic kidney disease, or unspecified chronic kidney disease (ICD-10 - I12.9) October, Stage 3 chronic kidney disease, unspecified whether stage 3a or 3b CKD (ICD-10 - N18.30) [facility] Other 05-06-2022 Evaluation note* Encounter Date Diagnosis Assessment Notes Treatment Notes Treatment Clinical Notes October, Pain in right leg (ICD-10 - M79.604) October, Pain in left leg (ICD-10 - M79.605) [facility] Other 04-20-2022 Evaluation note* Encounter Date Diagnosis Assessment Notes Treatment Notes Treatment Clinical Notes Sep, Diabetic nephropathy (ICD-10 - E11.21) [facility] Other 04-19-2022 Evaluation note* Encounter Date Diagnosis Assessment Notes Treatment Notes Treatment Clinical Notes Sep, Anxiety (ICD-10 - F41.9) Sep, Hypertensive chronic kidney disease with stage 1 through stage 4 chronic kidney disease, or unspecified chronic kidney disease (ICD-10 - I12.9) [facility] Other 03-07-2022 Evaluation note* Encounter Date Diagnosis Assessment Notes Treatment Notes Treatment Clinical Notes Aug, Anxiety (ICD-10 - F41.9) [facility] Other 02-22-2022 Evaluation note* Encounter Date Diagnosis [...] 12 pound weight loss from last visit. [facility] Other [phone] Evaluation note* Encounter Date Diagnosis Assessment Notes Treatment Notes Treatment Clinical Notes Jun, Diabetic nephropathy (ICD-10 - E11.21) [place] [facility] Other Evaluation + Plan note Future Appointments Appointment Date:12/21/2022 11:00:00 AM Scheduled Provider: Location:[facility] Appointment Type:URO Nurse Visit Appointment Date:01/30/2023 10:30:00 AM Scheduled Provider:[facility]E [facility] Office [facility] ITYZ Evaluation + Plan note Future Appointments Appointment Date:01/30/2023 10:15:00 AM Scheduled Provider:Yeyo ROWE MD Location:[facility] Appointment Type:URO Office Visit [facility] ITYZ Evaluation + Plan note Future Appointments Appointment Date:02/01/2023 10:00:00 AM Scheduled Provider: Location:[facility] Appointment Type:Urology CALL PAT FT Appointment Date:02/08/2023 09:00:00 AM Scheduled Provider: Location:[facility] Appointment Type:Urology FT Appointment Date:02/14/2023 09:15:00 AM Scheduled Provider: Location:[facility] Appointment Type:Urology FT [facility] evaluation + Plan note Future Appointments Appointment Date:02/14/2023 09:15:00 AM Scheduled Provider: Location:[facility]ments Appointment Date:03/20/2023 08:45:00 AM Scheduled Provider: Location:[facility] Appointment Type:URO Nurse Visit Appointment Date:04/05/2023 08:00:00 AM Scheduled Provider:Yeyo ROWE MD Location:[facility] App[facility]ments Appointment Date:05/03/2023 08:45:00 AM Scheduled Provider:Yeyo ROWE MD Location:[facility] Appointment Type:URO Office Visit [facility] Evaluation + Plan note Future Appointments Appointment Date:07/03/2023 10:15:00 AM Scheduled Provider:Yeyo ROWE MD Location:[facility] Appointment Type:URO Office Visit [facility] evaluation + Plan note Future Appointments Appointment Date:10/23/2023 09:30:00 AM Scheduled Provider:Padmini Montes MD [facility] InformationNort [facility] Other Evaluation noteNo assessment information available [facility] Work Phone: Evaluation note* Diagnosis History of PTCA Postsurgical percutaneous transluminal coronary angioplasty status Hyperlipidemia, unspecified hyperlipidemia type Encounter for pre-operative cardiovascular clearance Former smoker Personal history of tobacco use, presenting hazards to health documented in this encounter [facility] Work Phone: [facility] general Narrative - Reported* Type Description Date [...] placed by [facility]. Bowie at [facility] 07/26/15 Surgical History Left knee arthroscopy 11/2015 Surgical History carpal tunnel release, right an d left 08/2016 Surgical History hydrocele repair 08/2016 Surgical History cardiac cath [facility] 04/02/18 Surgical History Lt LE iliac DSA, angioplasty & stenting 09/27/2018 Surgical History Left Angiogram with one stent - Dr. Boss 07/2020 Hospitalization History Deep Depression, Anxiety; [facility] 11-11-10 Hospitalization History [facility] hypoxemia and hyper capnic respirtory failure 11/11/16 Hospitalization History chest pain [facility] 04/02/18 [facility] Other History of Present illness NarrativeReturns in [...] medication regimen. He denies medication side effects. [facility] 600 DO Work Phone: History of [...] medication regimen. He denies medication side effects. [facility] 250 DO Work Phone: Hospital course Narrative No data available for this section [facility] Discharge instructions No data available for this section [facility] note No data available for this section [facility] Chief Complaint SOLOMON FELDMAN is being seen [...] ECG 12 Lead Raulito Inman MD [address] [address] Referral ID Status Reason Start Date Expiration Date V isits Requested Visits Authorized [id number] Authorized 10/24/2023 10/23/2024 1 1 Specialty Diagnoses / Procedures Referred By Brett mandujano Referred To Contact Cardiology Diagnoses History of PTCA Procedures Follow Up In Cardiology Raulito Inman MD [address] [facility] [place] [address] Referral ID Status Reason Start Date Expiration Date V isits Requested Visits Authorized [id number] Authorized 10/24/2023 10/23/2024 1 1 Reason CANCELLED consult and treat; previous patient of Dr. Sharpe last seen in 2020; persisting intractable headaches Diagnosis 1 Acute intractable he adache, unspecified headache type (R51.9) Referral Organization [facility] Referring Provider First Name Jenaro Referring Provider Last Name Syed Referring Provider Specialty Family Jono hunter Referred Organization [facility] Referred Provider Lyssa Sharpe Referred Address [address] [facility],[place], [place],[address] Referred Provider Specialty Neurology Referral Priority Routine [...] 07/28/2022 10:23:53 AM >Spoke with Marilynn at [facility] and patient has been scheduled and [facility] 10:27:39 AM >Telephone encounter was sent Reason 03/31/22 @ 2:45pm consult and treat Diagnosis 1 Type 2 diabetes bobby itus with circulatory disorder (E11.59) Referral Organization [facility] Referring Provider First Name Jenaro Referring Provider Last Name Syed Referring Provider Specialty Family Prac dale Referred Organization [facility] Referred Provider Doris Barnes Referred Address [address],[place], [place],[address] Referred Provider Specialty Nurse Jono calderon Referral [...] ECG 12 Lead Raulito Inman MD [address] [facility] [address] [address] Referral ID Status Reason Start Date Expiration Date V isits Requested Visits Authorized [id number] Authorized 10/24/2023 10/23/2024 1 1 Care Teams (unrecognized sec tion and content) Team Status: Active Member Role Status Dates Jenaro Lynch DO Primary Care Provider Active Team Status: Inactive Member Role Status Dates Jenaro Lynch DO Primary Care Provider Active Shana Mclaughlin PA-C Attending Provider Active Team Status: Inactive Member Role Status Dates Jenaro Lynch DO Primary Care Provider Active Jenaro Lynch DO [facility] Attending Provider Active Team Status: [...] Provider Active Sta rt: October 06, 2023 [employer] Relationship Specialty Start Date End Date Jenaro [...] DATE CREATED AUTHOR AUTHOR'S ORGANIZ ATION 01/27/2023 [facility] DATE CREATED AUTHOR AUTHOR'S ORGANIZ ATION 02/16/2023 [facility] DATE CREATED AUTHOR AUTHOR'S ORGANIZ ATION 02/16/2023 [facility] DATE CREATED AUTHOR AUTHOR'S ORGANIZ ATION 10/22/2023 [place] [facility] DATE CREATED AUTHOR AUTHOR'S ORGANIZ ATION 10/26/2023 [facility] DATE CREATED AUTHOR AUTHOR'S ORGANIZ ATION 10/26/2023 [facility] DATE CREATED AUTHOR AUTHOR'S ORGANIZ ATION 11/16/2023 [facility] DATE CREATED AUTHOR AUTHOR'S ORGANIZ ATION 11/25/2023 [facility] DATE CREATED AUTHOR AUTHOR'S ORGANIZ ATION 11/29/2023 [facility] DATE CREATED AUTHOR AUTHOR'S ORGANIZ ATION [facility]20[facility] DATE CREATED AUTHOR AUTHOR'S ORGANIZ ATION 12/21/2023 [facility] FOR RECORDS PERTAINING TO PATIENTS [...] BE BASED ON THE PRIMARY CLINICAL RECORDS. [facility]. provides no warranty or guarantee of the accuracy or completeness of information in this document.
[2023-12-21 23:34] LABS: Glucometer 268 mg/dL (74-106)
[2023-12-21] MEDS: INSULIN ASPART 300 UNIT/3 ML PEN SUBQ (23:50)
[2023-12-21] MEDS: HEPARIN SODIUM (PORCINE) 5,000 UNIT/ML VIAL 5000 UNIT SUBQ (23:50)
[2023-12-21] MEDS: 0.9 % SODIUM CHLORIDE 1,000 ML 75 ML IV (23:50)
[2023-12-21] MEDS: ROPINIROLE HCL 1 MG TABLET PO (23:51)
[2023-12-22] VITALS (21 sets, daily range): BP systolic 106–118; BP diastolic 55–66; PULSE 90–115; TEMP 36.6–36.8; O2SAT 95–100
[2023-12-22] MEDS: IPRATROPIUM BROMIDE 0.5 MG/2.5 ML VIAL.NEB IH (04:28)
[2023-12-22] MEDS: ALBUTEROL SULFATE 2.5 MG/3 ML VIAL NEB IH (04:28)
[2023-12-22] MEDS: ROPINIROLE HCL 1 MG TABLET PO ×3 (05:31→22:10)
[2023-12-22 05:47] LABS: Basophils Percent Auto 0.2 % (0.2-2.0); Eosinophils Percent Auto 0.1 % (0.9-7.0); Hematocrit 25.4 % (42.0-54.0); Hemoglobin 7.6 g/dL (14.0-18.0); Immature Granulocytes Abs Auto 0.11 10^3/uL (0.00-0.03); Immature Granulocytes Pct Auto 0.9 % (0.0-0.5); Lymphocytes Absolute Auto 0.9 10^3/uL (1.2-3.8); Lymphocytes Percent Auto 7.6 % (20.5-60.0); Mean Corpuscular HGB Conc 29.9 g/dL (29.9-35.2); Mean Corpuscular Hemoglobin 24.4 pg (25.9-34.0); Mean Corpuscular Volume 81.7 fL (80.0-94.0); Mean Platelet Volume 10.5 fL (9.5-13.5); Monocytes Absolute Auto 0.2 10^3/uL (0.3-0.8); Monocytes Percent Auto 1.4 % (1.7-12.0); Neutrophils Absolute Auto 10.5 10^3/uL (1.4-6.5); Neutrophils Percent Auto 89.8 % (43.0-75.0); Platelet Count 400 10^3/uL (150-450); Red Blood Count 3.11 10^6/uL (4.70-6.10); Red Cell Distribution Width 16.5 % (11.0-15.0); White Blood Count 11.7 10^3/uL (4.0-11.0)
[2023-12-22 06:10] LABS: Alanine Aminotransferase 15 U/L (16-63); Albumin Globulin Ratio 0.6; Albumin Level 2.3 g/dL (3.4-5.0); Alkaline Phosphatase 143 U/L (46-116); Anion Gap 17.6; Aspartate Amino Transferase 9 U/L (15-37); BUN Creatinine Ratio 10.3; Bilirubin Total 0.2 mg/dL (0.2-1.0); Calcium 7.2 mg/dL (8.5-10.1); Carbon Dioxide 20.1 mmol/L (21.0-32.0); Chloride 96 mmol/L (98-107); Estimated GFR (African America 29 (>=60); Estimated GFR (Non-African Ame 24 (>=60); Globulin 3.8 g/dL; Phosphorus 2.7 mg/dL (2.6-4.7); Potassium 4.7 mmol/L (3.5-5.1); Sodium 129 mmol/L (136-145); Total Protein 6.1 g/dL (6.4-8.2)
[2023-12-22 06:24] LABS: Glucose 632 mg/dL (74-106)
[2023-12-22 06:25] LABS: Magnesium 0.9 mg/dL (1.8-2.4)
[2023-12-22 07:45] LABS: Anion Gap 17.1; BUN Creatinine Ratio 9.6; Calcium 7.2 mg/dL (8.5-10.1); Carbon Dioxide 21.7 mmol/L (21.0-32.0); Chloride 95 mmol/L (98-107); Estimated GFR (African America 28 (>=60); Estimated GFR (Non-African Ame 23 (>=60); Potassium 4.8 mmol/L (3.5-5.1); Sodium 129 mmol/L (136-145)
[2023-12-22 07:57] LABS: Glucose 683 mg/dL (74-106)
[2023-12-22] MEDS: POTASSIUM CHLORIDE 10 MEQ ER TABLET PO ×2 (08:20→22:11)
[2023-12-22] MEDS: JUVEN PACKET 1 PACKET PO ×2 (08:20→22:10)
[2023-12-22] MEDS: ATORVASTATIN CALCIUM 40 MG TABLET 80 MG PO (08:20)
[2023-12-22] MEDS: ENSURE HP 237 ML LIQUID PO ×2 (08:20→22:09)
[2023-12-22] MEDS: OMEPRAZOLE 40 MG CAPSULE.DR PO (08:20)
[2023-12-22] MEDS: HEPARIN SODIUM (PORCINE) 5,000 UNIT/ML VIAL 5000 UNIT SUBQ ×2 (08:20→22:10)
[2023-12-22] MEDS: GLIMEPIRIDE 2 MG TABLET PO ×2 (08:21→16:12)
[2023-12-22] MEDS: TAMSULOSIN HCL 0.4 MG CAPSULE PO ×2 (08:21→22:11)
[2023-12-22] MEDS: CLOPIDOGREL BISULFATE 75 MG TABLET PO (08:21)
[2023-12-22] MEDS: ISOSORBIDE MONONITRATE 30 MG TAB.ER.24H PO (08:21)
[2023-12-22] MEDS: MAGNESIUM OXIDE 400 MG TABLET PO ×2 (08:21→22:10)
[2023-12-22] MEDS: METOPROLOL TARTRATE 100 MG TABLET 50 MG PO ×2 (08:22→22:10)
[2023-12-22] MEDS: ASPIRIN 81 MG TABLET.DR PO (08:22)
[2023-12-22] MEDS: AMITRIPTYLINE HCL 25 MG TABLET PO (08:22)
[2023-12-22] MEDS: INSULIN ASPART 300 UNIT/3 ML PEN SUBQ ×4 (08:23→22:13)
--- NOTE | 2023-12-22 08:59 | CM.NOTE ---
Rounds made with Dr. Bryant. Dr. Bryant to add HHN and continue with current plan of care. Mr. Feldman in agreement.
[2023-12-22 09:43] LABS: Bilirubin Urine NEGATIVE (NEGATIVE); Blood Urine NEGATIVE (NEGATIVE); Clarity Urine CLEAR (CLEAR); Color Urine LT. YELLOW (YELLOW); Glucose Urine UA >=1000 mg/dL (NEGATIVE); Ketones Urine NEGATIVE (NEGATIVE); Leukocyte Esterase Urine NEGATIVE (NEGATIVE); Nitrite Urine NEGATIVE (NEGATIVE); Protein Urine NEGATIVE (NEG/TRACE); Specific Gravity Urine <=1.005 (1.005-1.025); Urobilinogen Urine 0.2 EU/dL (0.2-1.0); pH Urine 6.5 (5.0-9.0)
[2023-12-22 09:58] LABS: Bacteria Urine NONE SEEN #/HPF (NONE SEEN); Cast Seen? NONE SEEN #/LPF (NONE SEEN); Crystals Seen? None Seen #/HPF (None Seen); Mucus Urine NONE SEEN (NONE SEEN); RBC Urine 0-2 #/HPF (0-2); Squamous Epithelial Cell Urine NONE SEEN #/LPF (NONE/RARE); WBC Urine 0-2 #/HPF (NONE SEEN)
[2023-12-22] MEDS: MAGNESIUM SULFATE IN WATER 4 GM/100 ML PIGGYBACK IV (09:59)
--- NOTE | 2023-12-22 10:13 | P.HP_ITS ---
HPI H&P: HPI History of Present Illness Chief complaint: DIFF BREATHING ROEL COPD EXACERBATION WEAKNESS Narrative: Pt presented to the emergency room with increasing coug, and weakness . In ER with sinus tachycardia, respiratory distress, Hypotension, acute kidney injury with acute exacerbation of COPD due to bronchitis When I saw the patient on the med surg floor, pt was with some mild conversational dyspnea wtih cough throughout the evaluation Opioid HPI Opioid Management Most Recent Pain and Opioid Data: Last Pain Scale 0 12/22/23 10:04 Last Pain Intensity 9 03/04/23 10:36 Last Pain Assessment 12/22/23 10:04 Last ORT Total Score 0 12/21/23 23:25 Last ORT Risk Category Low Risk 12/21/23 23:25 Ur Phencyclidine Scrn Negative (NEGATIVE) 03/03/23 17:24 Review of Systems ROS Status of ROS 10 or more systems reviewed and unremark able except as noted in history and below [facility] Medical History (Updated 12/22/23 @ 10:18 by Truman Bryant MD) CKD stage 3b, GFR 30-44 ml/min ?N18.32 - Chronic kidney disease, stage 3b (ICD-10) Chronic ulcer of right foot ?L97.519 - Non-pressure chronic ulcer of other part of right foot with unspecified severity (ICD-10) DM2 (diabetes mellitus, type 2) ?E11.9 - Type 2 diabetes mellitus without complications (ICD-10) Coronary artery disease ?I25.10 - Atherosclerotic heart disease of [place] coronary artery without angina pectoris (ICD-10) COPD (chronic obstructive pulmonary disease) ?J44.9 - Chronic obstructive pulmonary disease, unspecified (ICD-10) Hypertension ?I10 - Essential (primary) hypertension (ICD-10) Post-op bleeding Acute pain of right hip ?M25.551 - Pain in right hip (ICD-10) Foot osteomyelitis ?M86.9 - Osteomyelitis, unspecified (ICD-10) Ulcer of right foot with necrosis of bone ?L97.514 - Non-pressure chronic ulcer of other part of right foot with necrosis of bone (ICD-10) Acute osteomyelitis of right foot ?M86.171 - Other acute osteomyelitis, right ankle and foot (ICD-10) Hypocalcemia ?E83.51 - Hypocalcemia (ICD-10) Hypomagnesemia ?E83.42 - Hypomagnesemia (ICD-10) Sepsis ?A41.9 - Sepsis, unspecified organism (ICD-10) Wound of foot ?S91.309A - Unspecified open wound, unspecified foot, initial encounter (ICD- 10) Abscess of right foot ?L02.611 - Cutaneous abscess of right foot (ICD-10) Anticoagulated ?Z79.01 - alf (current) use of anticoagulants (ICD-10) Diabetic infection of right foot ?E11.628 - Type 2 diabetes mellitus with other skin complications (ICD-10) ?L08.9 - Local infection of the skin and subcutaneous tissue, unspecified (ICD-10) Puncture wound of right foot ?S91.331A - Puncture wound without foreign body, right foot, initial encounter (ICD-10) Cellulitis of foot, right ?L03.115 - Cellulitis of right lower limb (ICD-10) ROEL (acute kidney injury) ?N17.9 - Acute kidney failure, unspecified (ICD-10) Sepsis ?A41.9 - Sepsis, unspecified organism (ICD-10) CHF (congestive heart failure) ?I50.9 - Heart failure, unspecified (ICD-10) Migraine headache ?G43.909 - Migraine, unspecified, not intractable, without status migrainosus (ICD-10) Tobacco abuse ?Z72.0 - Tobacco use (ICD-10) Carpal tunnel syndrome ?G56.00 - Carpal tunnel syndrome, unspecified upper limb (ICD-10) Back pain ?M54.9 - Dorsalgia, unspecified (ICD-10) Arthritis ?M19.90 - Unspecified osteoarthritis, unspecified site (ICD-10) Restless leg ?G25.81 - Restless legs syndrome (ICD-10) GERD (gastroesophageal reflux disease) ?K21.9 - Gastro-esophageal reflux disease without esophagitis (ICD-10) High cholesterol ?E78.00 - Pure hypercholesterolemia, unspecified (ICD-10) Myocardial infarction ?I21.9 - Acute myocardial infarction, unspecified (ICD-10) BPH with obstruction/lower urinary tract symptoms ?N40.1 - Benign prostatic hyperplasia with lower urinary tract symptoms (ICD- 10) ?N13.8 - Other obstructive and reflux uropathy (ICD-10) Dementia ?F03.90 - Unspecified dementia, unspecified severity, without behavioral disturbance, psychotic disturbance, mood disturbance, and anxiety (ICD-10) CKD stage 4 due to type 2 diabetes mellitus ?E11.22 - Type 2 diabetes mellitus with diabetic chronic kidney disease (ICD-10) ?N18.4 - Chronic kidney disease, stage 4 (severe) (ICD-10) Hyperlipidemia ?E78.5 - Hyperlipidemia, unspecified (ICD-10) Polyp of prostate with urinary obstruction ?N40.1 - Benign prostatic hyperplasia with lower urinary tract symptoms (ICD- 10) ?N13.8 - Other obstructive and reflux uropathy (ICD-10) Femoral artery stenosis ?I70.209 - Unspecified atherosclerosis of [place] arteries of extremities, unspecified extremity (ICD-10) Glaucoma ?H40.9 - Unspecified glaucoma (ICD-10) Carpal tunnel syndrome, bilateral ?G56.03 - Carpal tunnel syndrome, bilateral upper limbs (ICD-10) Gout ?M10.9 - Gout, unspecified (ICD-10) Neuropathy ?G62.9 - Polyneuropathy, unspecified (ICD-10) Chronic kidney disease ?N18.9 - Chronic kidney disease, unspecified (ICD-10) Weakness ?R53.1 - Weakness (ICD-10) Surgical History (Updated 09/15/23 @ 10:12 by Shana George NP) H/O foot surgery (08/10/23) ?Z98.890 - Other specified postprocedural states (ICD-10) S/P TURP (04/13/23) ?Z90.79 - Acquired absence of other genital organ(s) (ICD-10) H/O foot surgery (08/05/23) ?Z98.890 - Other specified postprocedural states (ICD-10) History of heart artery stent ?Z95.5 - Presence of coronary angioplasty implant and graft (ICD-10) History of spinal surgery ?Z98.890 - Other specified postprocedural states (ICD-10) History of colonoscopy ?Z98.890 - Other specified postprocedural states (ICD-10) History of carpal tunnel release ?Z98.890 - Other specified postprocedural states (ICD-10) History of cataract extraction ?Z98.49 - Cataract extraction status, unspecified eye (ICD-10) History of appendectomy ?Z90.49 - Acquired absence of other specified parts of digestive tract (ICD- 10) History of heart artery stent ?Z95.5 - Presence of coronary angioplasty implant and graft (ICD-10) Family History (Updated 03/03/23 @ 18:46 by Darling Sharma RN) Mother Family history of CHF (congestive heart failure) Family history of diabetes mellitus Family history of hypertension Grandfather Family history of CHF (congestive heart failure) Family history of diabetes mellitus Family history of hypertension Family history of myocardial infarction Grandmother Family history of hypertension Social History (Updated 12/09/23 @ 17:38 by Marybel Stevens LPN) Within the past year, how often did you have a drink containing alcohol: never Score interpretation: A score less than 4 is consistent with normal alcohol consumption. Smoking status: Current every day smoker What tobacco products do you use: cigarettes Cigarettes per day: 20 Years smoked: 42 Smoking pack-years: 42.00 Non-prescribed substance use: denies use Previous occupational history: DISABLED Highest level of school completed/degree received: Associate degree: occupational, technical, vocational program In a typical week, how many times do you talk on the telephone with family, friends, or neighbors: never How often do you get together with friends or relatives: never Do you belong to any clubs or organizations such as mormonism groups unions, [id number] or athletic groups, or school groups: no Little interest or pleasure in doing things: not at all Feeling down, depressed, or hopeless: not at all Do you think of yourself as: straight/heterosexual Gender Identity: male Meds Home Medications and Allergies Home Medications ?Medication ?Instructions ?Recorded ?Confirmed ?Type empagliflozin 10 mg tablet 10 mg PO DAILY 03/03/23 12/21/23 History (Jardiance) metformin 1,000 mg tablet 1,000 mg PO BID 03/03/23 12/21/23 History nitroglycerin 0.4 mg sublingual 0.4 mg sublingual Q5M PRN chest 03/03/23 12/21/23 History tablet pain omeprazole 40 mg capsule,delayed 40 mg PO DAILY 03/03/23 12/21/23 History release pregabalin 200 mg capsule 200 mg PO TID 03/03/23 12/21/23 History fremanezumab-vfrm 225 mg/1.5 mL 225 mg subcut .QMonth 08/03/23 12/21/23 History subcutaneous auto-injector (Ajovy) isosorbide mononitrate 30 mg 30 mg PO DAILY 08/03/23 12/21/23 History tablet,extended release 24 hr albuterol sulfate 90 mcg/actuation 2 inh inhalation Q8H PRN shortness 12/09/23 12/21/23 History aerosol inhaler (Proventil HFA) of breath or wheezing aspirin 81 mg tablet,delayed 81 mg PO DAILY 12/09/23 12/21/23 History release atorvastatin 80 mg tablet 80 mg PO DAILY 12/09/23 12/21/23 History clopidogrel 75 mg tablet 75 mg PO DAILY 12/09/23 12/21/23 History dulaglutide 0.75 mg/0.5 mL 0.75 mg subcut QWEEK 12/09/23 12/21/23 History subcutaneous pen injector (Bharathi) metoprolol tartrate 100 mg tablet 50 mg PO BID 12/09/23 12/21/23 History rimegepant 75 mg disintegrating 75 mg PO Q2H PRN migraine headache 12/09/23 12/21/23 History tablet (Nurtec ODT) sildenafil 100 mg tablet 100 mg PO Q24H PRN erectile 12/09/23 12/21/23 History dysfunction sitagliptin phosphate 100 mg 100 mg PO DAILY 12/09/23 12/21/23 History tablet (Januvia) tamsulosin 0.4 mg capsule 0.4 mg PO BID 12/09/23 12/21/23 History tiotropium bromide 1.25 2 inh inhalation QAM 12/09/23 12/21/23 History mcg/actuation mist for inhalation (Spiriva Respimat) valsartan 160 1 tab PO DAILY 12/09/23 12/21/23 History mg-hydrochlorothiazide 12.5 mg tablet (Diovan HCT) amitriptyline 25 mg tablet 25 mg PO DAILY 12/10/23 12/21/23 History budesonide-formoterol HFA 160 2 inh inhalation BID 12/10/23 12/21/23 History mcg-4.5 mcg/actuation aerosol inhaler (Symbicort) furosemide 40 mg tablet (Lasix) 40 mg PO DAILY 12/10/23 12/21/23 History glimepiride 2 mg tablet 2 mg PO BIDWM 12/10/23 12/21/23 History ropinirole 1 mg tablet 1 mg PO TID 12/10/23 12/21/23 History doxycycline hyclate 50 mg capsule 50 mg PO BID 7 days #14 caps 12/15/23 12/21/23 Rx Allergies Allergy/AdvReac Type Severity Reaction Status Date / Time Penicillins Allergy Severe Swelling Verified 12/21/23 19:44 of Lip/Tongue/Throat bee venom protein (honey bee) Allergy Swelling Verified 12/21/23 19:44 of Lip/Tongue/Throat latex Allergy Rash Verified 12/21/23 19:44 Exam Constitutional Vital Signs, click to edit/add: Last Vital Signs Temp 98.2 F 12/22/23 08:05 Pulse 106 H 12/22/23 08:05 Resp 12 12/22/23 08:05 BP 118/66 12/22/23 08:05 Pulse Ox 98 12/22/23 08:05 O2 Del Method Room Air 12/22/23 08:05 Documenting provider has reviewed patient's vital signs: yes Common normals: apparent distress (mild resp distress) Chest Common normals: inspection of chest normal Respiratory Common normals: no use of accessory muscles; abnormal respiratory effort (mild resp distress) and not clear to ascultation bilaterally Auscultation: rhonchi and wheezes Cardio Common normals: regular rate and regular rhythm GI Common normals: Normal to inspection, nondistended, normoactive bowel sounds present Extremity Common normals: normal to inspection (Dressing on foot) Results Labs Labs: Short CBC 12/21/23 12/22/23 Range/Units 19:50 05:17 WBC 12.6 H 11.7 H (4.0-11.0) 10^3/uL Hgb 8.6 L 7.6 L (14.0-18.0) g/dL Hct 28.2 L 25.4 L (42.0-54.0) % Plt Count 502 H 400 (150-450) 10^3/uL BMP 12/21/23 12/22/23 12/22/23 19:50 05:17 07:24 Sodium 138 129 L 129 L Potassium 3.3 L 4.7 4.8 Chloride 99 96 L 95 L Carbon Dioxide 29.9 20.1 L 21.7 BUN 29.0 H 28.0 H 27.0 H Creatinine 2.79 H 2.73 H 2.80 H Glucose 56 L 632 H* 683 H* Calcium 7.8 L 7.2 L 7.2 L Liver Function 12/21/23 12/22/23 Range/Units 19:50 05:17 Total Bilirubin 0.3 0.2 (0.2-1.0) mg/dL AST 10 L 9 L (15-37) U/L ALT 13 L 15 L (16-63) U/L Alkaline Phosphatase 132 H 143 H (46-116) U/L Albumin 2.8 L 2.3 L (3.4-5.0) g/dL Urine 12/22/23 Range/Units 09:30 Urine Color Lt. yellow (YELLOW) Urine Clarity Clear (CLEAR) Urine pH 6.5 (5.0-9.0) Ur Specific [place] <=1.005 A (1.005-1.025) Urine Protein Negative (NEG/TRACE) mg/dL Urine Glucose (UA) >=1000 A (NEGATIVE) mg/dL ABG ABG results: 12/21/23 19:50 VBG pH 7.448 H VBG pCO2 39.8 L Assessment and Plan Assessment and Plan (1) COPD exacerbation: (2) Shortness of breath: (3) Dehydration: (4) Acute renal failure: (5) Weakness: (6) Chronic ulcer of right foot: (7) DM2 (diabetes mellitus, type 2): (8) Hypertension: (9) Hypomagnesemia: (10) CHF (congestive heart failure): Plan Admission findings: Tachycardia, respiratory distress, Hypotension, Acute renal failure, leukocytosis due to dehydration due to acute exacerbation of COPD due to acute bronchitis Acute exacerbation COPD: due to acute bronchitis - holding off oin IV steroids due to severe hyperglycemia, Aerosols, IV AB, Sputum Cx Uncontrolled DM _ sugar over 600 this am - changed diet to 1800 Acute renal failure - baseling creatinine of 1.57 - 2.79 on admission - is 177.7% above baseline - gentle hydration due to hx CHF Iron deficiency anemia - also check occ blood Moderate PCM - Diet management Hypokalemia -supplement Hyponatremia - due to dehydration - monitor daily Diabetic foot ulcer - currently with open wound - cont with routine dressing changes Admission status: Pt with acute renal failure and acute exacerbation of COPD - medically necessary treatment will last more than 2 midnights - inpatient status
[2023-12-22] MEDS: BUDESONIDE 0.5 MG/2 ML AMPULE NEB IH ×2 (11:01→23:10)
[2023-12-22] MEDS: IPRATROPIUM/ALBUTEROL SULFATE 3 ML AMPUL.NEB IH ×3 (11:01→23:10)
[2023-12-22 11:41] LABS: Glucometer 505 mg/dL (74-106)
--- NOTE | 2023-12-22 12:09 | SWNOTE1 ---
SW reviewed therapy notes and pt had voiced he was independent with knee scooter and using a walker, no skilled needs identified for pt.
[2023-12-22] MEDS: LEVOFLOXACIN IN DEXTROSE 5 % 750 MG/150 ML IV.SOLN 100 MG IV (12:11)
[2023-12-22] MEDS: 0.9 % SODIUM CHLORIDE 1,000 ML 75 ML IV (13:46)
[2023-12-22] MEDS: ACETAMINOPHEN 500 MG TABLET 1000 MG PO (13:46)
[2023-12-22] MEDS: PREGABALIN 100 MG CAPSULE 200 MG PO ×2 (13:46→22:10)
[2023-12-22 16:04] LABS: Glucometer 362 mg/dL (74-106)
[2023-12-22] MEDS: TRAMADOL HCL 50 MG TABLET PO ×2 (16:13→23:49)
[2023-12-22 22:10] LABS: Glucometer 358 mg/dL (74-106)
[2023-12-22] MEDS: TEMAZEPAM 15 MG CAPSULE PO (23:49)
[2023-12-23] VITALS (11 sets, daily range): BP systolic 116–132; BP diastolic 63–79; PULSE 71–100; TEMP 36.4–36.6; O2SAT 96–99
[2023-12-23] MEDS: 0.9 % SODIUM CHLORIDE 1,000 ML 75 ML IV (03:08)
[2023-12-23] MEDS: IPRATROPIUM/ALBUTEROL SULFATE 3 ML AMPUL.NEB IH ×2 (04:48→10:40)
[2023-12-23] MEDS: TRAMADOL HCL 50 MG TABLET PO (05:32)
[2023-12-23] MEDS: PREGABALIN 100 MG CAPSULE 200 MG PO (05:32)
[2023-12-23] MEDS: ROPINIROLE HCL 1 MG TABLET PO (05:32)
[2023-12-23 06:24] LABS: Basophils Absolute Auto 0.1 10^3/uL (0.0-0.1); Basophils Percent Auto 0.4 % (0.2-2.0); Eosinophils Absolute Auto 0.1 10^3/uL (0.0-0.7); Hemoglobin 7.1 g/dL (14.0-18.0); Immature Granulocytes Abs Auto 0.12 10^3/uL (0.00-0.03); Immature Granulocytes Pct Auto 0.9 % (0.0-0.5); Lymphocytes Absolute Auto 2.1 10^3/uL (1.2-3.8); Lymphocytes Percent Auto 15.7 % (20.5-60.0); Mean Corpuscular HGB Conc 30.1 g/dL (29.9-35.2); Mean Corpuscular Volume 83.1 fL (80.0-94.0); Mean Platelet Volume 10.3 fL (9.5-13.5); Monocytes Absolute Auto 0.6 10^3/uL (0.3-0.8); Monocytes Percent Auto 4.7 % (1.7-12.0); Neutrophils Absolute Auto 10.3 10^3/uL (1.4-6.5); Neutrophils Percent Auto 77.3 % (43.0-75.0); Platelet Count 373 10^3/uL (150-450); Red Blood Count 2.84 10^6/uL (4.70-6.10); Red Cell Distribution Width 16.4 % (11.0-15.0); White Blood Count 13.3 10^3/uL (4.0-11.0)
[2023-12-23 06:26] LABS: Hematocrit 23.6 % (42.0-54.0)
[2023-12-23 06:30] LABS: Magnesium 1.5 mg/dL (1.8-2.4)
[2023-12-23 06:36] LABS: Alanine Aminotransferase 13 U/L (16-63); Albumin Globulin Ratio 0.7; Albumin Level 2.2 g/dL (3.4-5.0); Alkaline Phosphatase 127 U/L (46-116); Aspartate Amino Transferase 10 U/L (15-37); Bilirubin Total 0.2 mg/dL (0.2-1.0); Calcium 7.4 mg/dL (8.5-10.1); Carbon Dioxide 23.4 mmol/L (21.0-32.0); Chloride 103 mmol/L (98-107); Estimated GFR (African America 45 (>=60); Estimated GFR (Non-African Ame 37 (>=60); Globulin 3.3 g/dL; Glucose 357 mg/dL (74-106); Potassium 4.4 mmol/L (3.5-5.1); Sodium 136 mmol/L (136-145); Total Protein 5.5 g/dL (6.4-8.2)
[2023-12-23 07:24] LABS: Glucometer 420 mg/dL (74-106)
[2023-12-23] MEDS: INSULIN ASPART 300 UNIT/3 ML PEN SUBQ ×2 (07:45→11:39)
[2023-12-23] MEDS: GLIMEPIRIDE 2 MG TABLET PO (07:56)
[2023-12-23] MEDS: ISOSORBIDE MONONITRATE 30 MG TAB.ER.24H PO (07:59)
[2023-12-23] MEDS: ATORVASTATIN CALCIUM 40 MG TABLET 80 MG PO (08:00)
[2023-12-23] MEDS: MAGNESIUM OXIDE 400 MG TABLET PO (08:00)
[2023-12-23] MEDS: OMEPRAZOLE 40 MG CAPSULE.DR PO (08:00)
[2023-12-23] MEDS: ASPIRIN 81 MG TABLET.DR PO (08:00)
[2023-12-23] MEDS: METOPROLOL TARTRATE 100 MG TABLET 50 MG PO (08:01)
[2023-12-23] MEDS: POTASSIUM CHLORIDE 10 MEQ ER TABLET PO (08:01)
[2023-12-23] MEDS: AMITRIPTYLINE HCL 25 MG TABLET PO (08:01)
[2023-12-23] MEDS: HEPARIN SODIUM (PORCINE) 5,000 UNIT/ML VIAL 5000 UNIT SUBQ (08:01)
[2023-12-23] MEDS: TAMSULOSIN HCL 0.4 MG CAPSULE PO (08:01)
[2023-12-23] MEDS: CLOPIDOGREL BISULFATE 75 MG TABLET PO (08:02)
[2023-12-23] MEDS: JUVEN PACKET 1 PACKET PO (08:03)
[2023-12-23] MEDS: ENSURE HP 237 ML LIQUID PO (08:07)
[2023-12-23] MEDS: CANAGLIFLOZIN 100 MG TABLET PO (08:07)
--- NOTE | 2023-12-23 08:11 | PM.PN ---
Progress Note: Subjective Subjective Interval history: Patient resting in bed, no current concerns or issues. Reports less weak, breathing is improved, no shortness of breath or chest pain. Exam Narrative Exam Narrative: General: Patient is alert, and oriented to person, place and time with normal affect, proper hygiene Skin: no visible rashes, or ulcers, right foot dressing is c/d/i Head: atraumatic, acephalic Eyes: PERRLA, no nystagmus present, conjunctiva clear, no scleral icterus Ears: normal gross auditory acuity Nose: symmetric, no discharge, no maxillary or frontal sinus tenderness Mouth/Throat: no dentition Heart: Normal rate and rhythm, no murmurs/rubs/gallops Lungs: no audible wheezes, crackles and normal breath sounds all lung loredo Abdomen: Normal audible bowel sounds, no distension, No palpable masses, no organomegaly, no rebound/guarding/ or rigidity Musculoskeletal: no swelling bilateral lower extremities Neuro: CN II-X grossly intact Constitutional Vital Signs, click to edit/add: Last Vital Signs Temp 97.8 F 12/23/23 03:58 Pulse 86 12/23/23 08:00 Resp 16 12/23/23 07:59 BP 122/63 12/23/23 03:58 Pulse Ox 96 12/23/23 04:45 O2 Del Method Room Air 12/23/23 04:45 Progress Note: Objective Labs Labs: Short CBC 12/23/23 Range/Units 05:59 WBC 13.3 H (4.0-11.0) 10^3/uL Hgb 7.1 L (14.0-18.0) g/dL Hct 23.6 L* (42.0-54.0) % Plt Count 373 (150-450) 10^3/uL BMP 12/23/23 05:59 Sodium 136 Potassium 4.4 Chloride 103 Carbon Dioxide 23.4 BUN 30.0 H Creatinine 1.88 H Glucose 357 H Calcium 7.4 L Liver Function 12/23/23 Range/Units 05:59 Total Bilirubin 0.2 (0.2-1.0) mg/dL AST 10 L (15-37) U/L ALT 13 L (16-63) U/L Alkaline Phosphatase 127 H (46-116) U/L Albumin 2.2 L (3.4-5.0) g/dL Urine 12/22/23 Range/Units 09:30 Urine Color Lt. yellow (YELLOW) Urine Clarity Clear (CLEAR) Urine pH 6.5 (5.0-9.0) Ur Specific [place] <=1.005 A (1.005-1.025) Urine Protein Negative (NEG/TRACE) mg/dL Urine Glucose (UA) >=1000 A (NEGATIVE) mg/dL Progress Note: A&P Assessment and Plan (1) COPD exacerbation: Assessment and Plan: No steroids due to hyperglycemia, ha1c was 9.0 recently. continue neb treatments, opep, IV antibiotics, awaiting sputum and blood cultures. (2) Shortness of breath: Assessment and Plan: improving Chest X-ray negative for pneumonia. (3) Dehydration: Assessment and Plan: continue with IVF hydration (4) Acute renal failure: Assessment and Plan: baseline creatinine of 1.57 - 2.79 on admission, down to 1.88, continue gentle hydration (5) Weakness: Assessment and Plan: due to the above, monitor, pt/ot (6) Chronic ulcer of right foot: Assessment and Plan: consult wound for further recs, sees podiatry as outpatient (7) DM2 (diabetes mellitus, type 2): Assessment and Plan: monitor, SSI as needed and continue home meds (8) Hypertension: Assessment and Plan: continue valsartan, hctz, metoprolol, isosorbide Qualifiers: Hypertension type: secondary to endocrine disorders Qualified Code(s): I15.2 - Hypertension secondary to endocrine disorders (9) Hypomagnesemia: Assessment and Plan: replace as needed. (10) CHF (congestive heart failure): Assessment and Plan: no acute exacerbation, continue lasix and home meds, monitor closely with IVF on board. Qualifiers: Heart failure type: unspecified Heart failure chronicity: chronic Qualified Code(s): I50.9 - Heart failure, unspecified (11) CKD stage 3b, GFR 30-44 ml/min: (12) Femoral artery stenosis: Assessment and Plan: continue plavix Plan Patient is a full code Patient is improving. hopeful discharge in the next 1-2 days.
[2023-12-23] MEDS: MAGNESIUM SULFATE IN WATER 2 GM/50 ML PREMIX IV (08:19)
[2023-12-23] MEDS: BUDESONIDE 0.5 MG/2 ML AMPULE NEB IH (10:40)
[2023-12-23 11:37] LABS: Glucometer 246 mg/dL (74-106)
--- NOTE | 2023-12-23 12:39 | PM.CN ---
Consult Note: [facility] Data of Consult Consult date: 12/23/23 Requesting Physician: Clair Bello DO Primary Care Provider: Jenaro Valadez DO Consult Narrative Reason for consult: Right foot ulcer Narrative: Patient is a 58-year-old male with type 2 diabetes, peripheral neuropathy and is status post right transmetatarsal amputation which was performed on 10/02/23. His recovery was complicated by development of a secondary wound from a tight Omero wrap over his dorsal ankle as well as by surgical dehiscence. Revision of his amputation with application of external soft tissue surgical supply assistant was then performed on 12/15/2023. He was admitted 2 days ago for acute kidney failure and COPD exacerbation. I was consulted to evaluate his right foot. At bedside patient converses well and relates to a normal appetite. He relates that he feels much better since being admitted. He denies pain in his right foot or ankle. He denies nausea, vomiting, fever, chills, calf pain or chest pain in the last 24 hours. cc:: CC: Clair Bello DO Review of Systems ROS Status of ROS 10 or more systems reviewed and unremarkable except as noted in history and below [facility] Medical History (Updated 12/23/23 @ 12:46 by Fredy Elias DPM) CKD stage 3b, GFR 30-44 ml/min ?N18.32 - Chronic kidney disease, stage 3b (ICD-10) Chronic ulcer of right foot ?L97.519 - Non-pressure chronic ulcer of other part of right foot with unspecified severity (ICD-10) DM2 (diabetes mellitus, type 2) ?E11.9 - Type 2 diabetes mellitus without complications (ICD-10) Coronary artery disease ?I25.10 - Atherosclerotic heart disease of [place] coronary artery without angina pectoris (ICD-10) COPD (chronic obstructive pulmonary disease) ?J44.9 - Chronic obstructive pulmonary disease, unspecified (ICD-10) Hypertension ?I10 - Essential (primary) hypertension (ICD-10) Post-op bleeding Acute pain of right hip ?M25.551 - Pain in right hip (ICD-10) Foot osteomyelitis ?M86.9 - Osteomyelitis, unspecified (ICD-10) Ulcer of right foot with necrosis of bone ?L97.514 - Non-pressure chronic ulcer of other part of right foot with necrosis of bone (ICD-10) Hypocalcemia ?E83.51 - Hypocalcemia (ICD-10) Hypomagnesemia ?E83.42 - Hypomagnesemia (ICD-10) Sepsis ?A41.9 - Sepsis, unspecified organism (ICD-10) Wound of foot ?S91.309A - Unspecified open wound, unspecified foot, initial encounter (ICD-10) Abscess of right foot ?L02.611 - Cutaneous abscess of right foot (ICD-10) Anticoagulated ?Z79.01 - terminal clerk (current) use of anticoagulants (ICD-10) Diabetic infection of right foot ?E11.628 - Type 2 diabetes mellitus with other skin complications (ICD-10) ?L08.9 - Local infection of the skin and subcutaneous tissue, unspecified (ICD-10) Puncture wound of right foot ?S91.331A - Puncture wound without foreign body, right foot, initial encounter (ICD-10) Cellulitis of foot, right ?L03.115 - Cellulitis of right lower limb (ICD-10) ROEL (acute kidney injury) ?N17.9 - Acute kidney failure, unspecified (ICD-10) Sepsis ?A41.9 - Sepsis, unspecified organism (ICD-10) CHF (congestive heart failure) ?I50.9 - Heart failure, unspecified (ICD-10) Migraine headache ?G43.909 - Migraine, unspecified, not intractable, without status migrainosus (ICD-10) Tobacco abuse ?Z72.0 - Tobacco use (ICD-10) Carpal tunnel syndrome ?G56.00 - Carpal tunnel syndrome, unspecified upper limb (ICD-10) Back pain ?M54.9 - Dorsalgia, unspecified (ICD-10) Arthritis ?M19.90 - Unspecified osteoarthritis, unspecified site (ICD-10) Restless leg ?G25.81 - Restless legs syndrome (ICD-10) GERD (gastroesophageal reflux disease) ?K21.9 - Gastro-esophageal reflux disease without esophagitis (ICD-10) High cholesterol ?E78.00 - Pure hypercholesterolemia, unspecified (ICD-10) Myocardial infarction ?I21.9 - Acute myocardial infarction, unspecified (ICD-10) BPH with obstruction/lower urinary tract symptoms ?N40.1 - Benign prostatic hyperplasia with lower urinary tract symptoms (ICD-10) ?N13.8 - Other obstructive and reflux uropathy (ICD-10) Dementia ?F03.90 - Unspecified dementia, unspecified severity, without behavioral disturbance, psychotic disturbance, mood disturbance, and anxiety (ICD-10) CKD stage 4 due to type 2 diabetes mellitus ?E11.22 - Type 2 diabetes mellitus with diabetic chronic kidney disease (ICD-10) ?N18.4 - Chronic kidney disease, stage 4 (severe) (ICD-10) Hyperlipidemia ?E78.5 - Hyperlipidemia, unspecified (ICD-10) Polyp of prostate with urinary obstruction ?N40.1 - Benign prostatic hyperplasia with lower urinary tract symptoms (ICD-10) ?N13.8 - Other obstructive and reflux uropathy (ICD-10) Femoral artery stenosis ?I70.209 - Unspecified atherosclerosis of [place] arteries of extremities, unspecified extremity (ICD-10) Glaucoma ?H40.9 - Unspecified glaucoma (ICD-10) Carpal tunnel syndrome, bilateral ?G56.03 - Carpal tunnel syndrome, bilateral upper limbs (ICD-10) Gout ?M10.9 - Gout, unspecified (ICD-10) Neuropathy ?G62.9 - Polyneuropathy, unspecified (ICD-10) Chronic kidney disease ?N18.9 - Chronic kidney disease, unspecified (ICD-10) Weakness ?R53.1 - Weakness (ICD-10) Surgical History (Updated 09/15/23 @ 10:12 by Shana George NP) H/O foot surgery (08/10/23) ?Z98.890 - Other specified postprocedural states (ICD-10) S/P TURP (04/13/23) ?Z90.79 - Acquired absence of other genital organ(s) (ICD-10) H/O foot surgery (08/05/23) ?Z98.890 - Other specified postprocedural states (ICD-10) History of heart artery stent ?Z95.5 - Presence of coronary angioplasty implant and graft (ICD-10) History of spinal surgery ?Z98.890 - Other specified postprocedural states (ICD-10) History of colonoscopy ?Z98.890 - Other specified postprocedural states (ICD-10) History of carpal tunnel release ?Z98.890 - Other specified postprocedural states (ICD-10) History of cataract extraction ?Z98.49 - Cataract extraction status, unspecified eye (ICD-10) History of appendectomy ?Z90.49 - Acquired absence of other specified parts of digestive tract (ICD-10) History of heart artery stent ?Z95.5 - Presence of coronary angioplasty implant and graft (ICD-10) Family History (Updated 03/03/23 @ 18:46 by Darling Sharma RN) Mother Family history of CHF (congestive heart failure) Family history of diabetes mellitus Family history of hypertension Grandfather Family history of CHF (congestive heart failure) Family history of diabetes mellitus Family history of hypertension Family history of myocardial infarction Grandmother Family history of hypertension Social History (Updated 12/09/23 @ 17:38 by Marybel Stevens LPN) Within the past year, how often did you have a drink containing alcohol: never Score interpretation: A score less than 4 is consistent with normal alcohol consumption. Smoking status: Current every day smoker What tobacco products do you use: cigarettes Cigarettes per day: 20 Years smoked: 42 Smoking pack-years: 42.00 Non-prescribed substance use: denies use Previous occupational history: DISABLED Highest level of school completed/degree received: Associate degree: occupational, technical, vocational program In a typical week, how many times do you talk on the telephone with family, friends, or neighbors: never How often do you get together with friends or relatives: never Do you belong to any clubs or organizations such as evangelical groups unions, [employer] or athletic groups, or school groups: no Little interest or pleasure in doing things: not at all Feeling down, depressed, or hopeless: not at all Do you think of yourself as: straight/heterosexual Gender Identity: male Meds Home Medications and Allergies Home Medications ?Medication ?Instructions ?Recorded ?Confirmed ?Type empagliflozin 10 mg tablet 10 mg PO DAILY 03/03/23 12/21/23 History (Jardiance) metformin 1,000 mg tablet 1,000 mg PO BID 03/03/23 12/21/23 History nitroglycerin 0.4 mg sublingual 0.4 mg sublingual Q5M PRN chest 03/03/23 12/21/23 History tablet pain omeprazole 40 mg capsule,delayed 40 mg PO DAILY 03/03/23 12/21/23 History release pregabalin 200 mg capsule 200 mg PO TID 03/03/23 12/21/23 History fremanezumab-vfrm 225 mg/1.5 mL 225 mg subcut .QMonth 08/03/23 12/21/23 History subcutaneous auto-injector (Ajovy) isosorbide mononitrate 30 mg 30 mg PO DAILY 08/03/23 12/21/23 History tablet,extended release 24 hr albuterol sulfate 90 mcg/actuation 2 inh inhalation Q8H PRN shortness 12/09/23 12/21/23 History aerosol inhaler (Proventil HFA) of breath or wheezing aspirin 81 mg tablet,delayed 81 mg PO DAILY 12/09/23 12/21/23 History release atorvastatin 80 mg tablet 80 mg PO DAILY 12/09/23 12/21/23 History clopidogrel 75 mg tablet 75 mg PO DAILY 12/09/23 12/21/23 History dulaglutide 0.75 mg/0.5 mL 0.75 mg subcut QWEEK 12/09/23 12/21/23 History subcutaneous pen injector (Trulicity) metoprolol tartrate 100 mg tablet 50 mg PO BID 12/09/23 12/21/23 History rimegepant 75 mg disintegrating 75 mg PO Q2H PRN migraine headache 12/09/23 12/21/23 History tablet (Nurtec ODT) sildenafil 100 mg tablet 100 mg PO Q24H PRN erectile 12/09/23 12/21/23 History dysfunction sitagliptin phosphate 100 mg 100 mg PO DAILY 12/09/23 12/21/23 History tablet (Januvia) tamsulosin 0.4 mg capsule 0.4 mg PO BID 12/09/23 12/21/23 History valsartan 160 1 tab PO DAILY 12/09/23 12/21/23 History mg-hydrochlorothiazide 12.5 mg tablet (Diovan HCT) amitriptyline 25 mg tablet 25 mg PO DAILY 12/10/23 12/21/23 History budesonide-formoterol HFA 160 2 inh inhalation BID 12/10/23 12/21/23 History mcg-4.5 mcg/actuation aerosol inhaler (Symbicort) furosemide 40 mg tablet (Lasix) 40 mg PO DAILY 12/10/23 12/21/23 History glimepiride 2 mg tablet 2 mg PO BIDWM 12/10/23 12/21/23 History ropinirole 1 mg tablet 1 mg PO TID 12/10/23 12/21/23 History doxycycline hyclate 50 mg capsule 50 mg PO BID 7 days #14 caps 12/15/23 12/21/23 Rx tiotropium bromide 2.5 2 puff inhalation DAILY 12/22/23 12/22/23 History mcg/actuation mist for inhalation (Spiriva Respimat) Allergies Allergy/AdvReac Type Severity Reaction Status Date / Time Penicillins Allergy Severe Swelling Verified 12/21/23 19:44 of Lip/Tongue/Throat bee venom protein (honey bee) Allergy Swelling Verified 12/21/23 19:44 of Lip/Tongue/Throat latex Allergy Rash Verified 12/21/23 19:44 Exam Narrative Exam Narrative: Splint from the right foot was removed noting and intact external soft tissue surgical supply assistant and intact sutures over his TMA stump. There remains a fibrogranular wound over his anterior ankle and dorsal medial foot with no tendon or bone exposure. There is no erythema or purulent drainage. No pain on palpation. He is able to dorsiflex and plantarflex the ankle without pain. No swelling and no calf pain on squeeze Constitutional Vital Signs, click to edit/add: Last Vital Signs Temp 97.6 F 12/23/23 08:00 Pulse 90 12/23/23 12:00 Resp 16 12/23/23 08:00 BP 132/79 12/23/23 08:00 Pulse Ox 99 12/23/23 10:40 O2 Del Method Room Air 12/23/23 10:40 Results Labs Labs: Short CBC 12/23/23 Range/Units 05:59 WBC 13.3 H (4.0-11.0) 10^3/uL Hgb 7.1 L (14.0-18.0) g/dL Hct 23.6 L* (42.0-54.0) % Plt Count 373 (150-450) 10^3/uL BMP 12/23/23 05:59 Sodium 136 Potassium 4.4 Chloride 103 Carbon Dioxide 23.4 BUN 30.0 H Creatinine 1.88 H Glucose 357 H Calcium 7.4 L Liver Function 12/23/23 Range/Units 05:59 Total Bilirubin 0.2 (0.2-1.0) mg/dL AST 10 L (15-37) U/L ALT 13 L (16-63) U/L Alkaline Phosphatase 127 H (46-116) U/L Albumin 2.2 L (3.4-5.0) g/dL ABG ABG results: 12/21/23 19:50 VBG pH 7.448 H VBG pCO2 39.8 L Assessment and Plan Assessment and Plan (1) COPD exacerbation: (2) Shortness of breath: (3) Dehydration: (4) Acute renal failure: (5) Weakness: (6) Chronic ulcer of right foot: Qualifiers: Non-pressure ulcer stage: with fat layer exposed Qualified Code(s): L97.512 - Non-pressure chronic ulcer of other part of right foot with fat layer exposed (7) DM2 (diabetes mellitus, type 2): (8) Hypertension: Qualifiers: Hypertension type: secondary to endocrine disorders Qualified Code(s): I15.2 - Hypertension secondary to endocrine disorders (9) Hypomagnesemia: (10) CHF (congestive heart failure): Qualifiers: Heart failure type: unspecified Heart failure chronicity: chronic Qualified Code(s): I50.9 - Heart failure, unspecified (11) CKD stage 3b, GFR 30-44 ml/min: (12) Femoral artery stenosis: (13) Acute osteomyelitis of right foot: Plan Patient seen and evaluated at bedside. There is no evidence of acute infection and the sutures and soft tissue surgical supply assistant remain intact. There appears to be improvement in wound size and appearance. The right foot wound was then dressed with Xeroform, 4 x 4's, Kerlix and multiple layers of cast padding applied over his stump extending to the popliteal fossa followed by Omero wrap's and additional layers of cast padding followed by a plaster posterior splint which was held in place by Omero wrap's. After application of the multilayer modified Byrd splint patient related that it was comfortable and care was taken to pad the tissue surgical supply assistant to prevent secondary skin injury. The the ankle was held in neutral position until the splint dried. Continue strict nonweightbearing Okay to discharge home from podiatry perspective Follow-up in the wound center next week I discussed the plan and prognosis. Patient still has a full-thickness wound over his tibialis anterior tendon which is concerning but fortunately the tendon is not exposed. Once the tissue surgical supply assistant is removed (likely in the next 1 to 2 weeks) patient will likely require debridement as well as possible wound VAC and possible allogenic skin substitute. He remains at high risk for complication including secondary infection, need for additional surgery and major amputation. He is scheduled to follow-up with Dr. Montes for additional revascularization. Patient and understand the plan and all questions were answered to their satisfaction
--- NOTE | 2023-12-23 13:59 | PM.DS1 ---
DS: Providers Provider Date of admission: 12/21/23 23:05 Primary care physician: Jenaro Valadez DO Consults: 12/22/23 06:18 Consult to Pharmacy Routine Consulting Provider: Reason for consultation: Please [place] me when Med Rec is Updated Has provider been notified: No 12/22/23 09:33 Occupational Therapy Eval and Treat Routine Reason for consultation: if needed for rehab Has provider been notified: No Physical Therapy Eval and Treat Routine Reason for consultation: eval and treat Has provider been notified: No 12/22/23 16:10 Consult to Podiatry Routine Consulting Provider: Fredy Elias Reason for consultation: wound Has provider been notified: Yes DS: Diagnosis Discharge Diagnosis (1) COPD exacerbation: (2) Shortness of breath: (3) Dehydration: (4) Acute renal failure: (5) Weakness: (6) Chronic ulcer of right foot: Qualifiers: Non-pressure ulcer stage: with fat layer exposed Qualified Code(s): L97.512 - Non-pressure chronic ulcer of other part of right foot with fat layer exposed (7) DM2 (diabetes mellitus, type 2): (8) Hypertension: Qualifiers: Hypertension type: secondary to endocrine disorders Qualified Code(s): I15.2 - Hypertension secondary to endocrine disorders (9) Hypomagnesemia: (10) CHF (congestive heart failure): Qualifiers: Heart failure type: unspecified Heart failure chronicity: chronic Qualified Code(s): I50.9 - Heart failure, unspecified (11) CKD stage 3b, GFR 30-44 ml/min: (12) Femoral artery stenosis: (13) Acute osteomyelitis of right foot: DS: Summary Hospital Course Hospital Course: please see progress noted dated 12/23/23, stop doxycycline and resume Levaquin 250mg daily x 5 days. Return to the ER with any worsening signs or symptoms. Call Monday to get follow up appointment with PCP for CBC and BMP recheck. Follow up wound clinic as scheduled. Status at Discharge Functional status at discharge: uses cane/walker Time Spent with Patient Time attestation: Total time spent providing and/or coordinating discharge services: Time spent: greater than 30 minutes Exam Narrative Exam Narrative: no changes to progress note exam dated 12/23/23 Constitutional Vital Signs, click to edit/add: Last Vital Signs Temp 97.5 F L 12/23/23 12:00 Pulse 78 12/23/23 12:00 Resp 16 12/23/23 12:00 BP 116/67 12/23/23 12:00 Pulse Ox 99 12/23/23 12:00 O2 Del Method Room Air 12/23/23 12:00 DS: Data Data Completed and Pending Labs on day of discharge: Labs from last 24 hours 12/23/23 12/23/23 12/23/23 11:35 07:23 05:59 WBC 13.3 H RBC 2.84 L Hgb 7.1 L Hct 23.6 L* MCV 83.1 MCH 25.0 L MCHC 30.1 RDW 16.4 H Plt Count 373 MPV 10.3 Neut % (Auto) 77.3 H Lymph % (Auto) 15.7 L Robertson % (Auto) 4.7 Eos % (Auto) 1.0 Baso % (Auto) 0.4 Neut # (Auto) 10.3 H Lymph # (Auto) 2.1 Robertson # (Auto) 0.6 Eos # (Auto) 0.1 Baso # (Auto) 0.1 Abs Immat Gran (auto) 0.12 H Imm/Tot Granulo (auto) 0.9 H Sodium 136 Potassium 4.4 Chloride 103 Carbon Dioxide 23.4 Anion Gap 14.0 BUN 30.0 H Creatinine 1.88 H Est GFR ( Amer) 45 L Est GFR (Non-Af Amer) 37 L BUN/Creatinine Ratio 16.0 Glucose 357 H Calcium 7.4 L Magnesium 1.5 L Total Bilirubin 0.2 AST 10 L ALT 13 L Alkaline Phosphatase 127 H Total Protein 5.5 L Albumin 2.2 L Globulin 3.3 Albumin/Globulin Ratio 0.7 POC Glucose 246 H 420 H 12/22/23 12/22/23 22:09 16:02 WBC RBC Hgb Hct MCV MCH MCHC RDW Plt Count MPV Neut % (Auto) Lymph % (Auto) Robertson % (Auto) Eos % (Auto) Baso % (Auto) Neut # (Auto) Lymph # (Auto) Robertson # (Auto) Eos # (Auto) Baso # (Auto) Abs Immat Gran (auto) Imm/Tot Granulo (auto) Sodium Potassium Chloride Carbon Dioxide Anion Gap BUN Creatinine Est GFR ( Amer) Est GFR (Non-Af Amer) BUN/Creatinine Ratio Glucose Calcium Magnesium Total Bilirubin AST ALT Alkaline Phosphatase Total Protein Albumin Globulin Albumin/Globulin Ratio POC Glucose 358 H 362 H Discharge Plan Discharge Disposition: Home, Self-Care Condition: Good Discharge Medications: New levofloxacin 250 mg tablet 250 mg PO DAILY Qty: 5 0RF Continued Jardiance 10 mg tablet 10 mg PO DAILY metformin 1,000 mg tablet 1,000 mg PO BID nitroglycerin 0.4 mg tablet, sublingual 0.4 mg sublingual Q5M PRN (Reason: chest pain) omeprazole 40 mg capsule,delayed release(DR/EC) 40 mg PO DAILY pregabalin 200 mg capsule 200 mg PO TID Ajovy Autoinjector 225 mg/1.5 mL auto-injector 225 mg SUBCUT .QMonth isosorbide mononitrate 30 mg tablet extended release 24 hr 30 mg PO DAILY Hold Instructions: DC metoprolol tartrate 100 mg tablet 50 mg PO BID tamsulosin 0.4 mg capsule 0.4 mg PO BID aspirin 81 mg tablet,delayed release (DR/EC) 81 mg PO DAILY atorvastatin 80 mg tablet 80 mg PO DAILY clopidogrel 75 mg tablet 75 mg PO DAILY albuterol sulfate [Proventil HFA] 90 mcg/actuation HFA aerosol inhaler 2 inh inhalation Q8H PRN (Reason: shortness of breath or wheezing) sildenafil 100 mg tablet 100 mg PO Q24H PRN (Reason: erectile dysfunction) Nurtec ODT 75 mg tablet,disintegrating 75 mg PO Q2H PRN (Reason: migraine headache) Rx Instructions: max of 2 tabs in 24 hours Trulicity 0.75 mg/0.5 mL pen injector 0.75 mg subcut QWEEK Patient Comments: tuesdays Januvia 100 mg tablet 100 mg PO DAILY valsartan-hydrochlorothiazide [Diovan HCT] 160-12.5 mg tablet 1 tab PO DAILY amitriptyline 25 mg tablet 25 mg PO DAILY ropinirole 1 mg tablet 1 mg PO TID furosemide [Lasix] 40 mg tablet 40 mg PO DAILY budesonide-formoterol [Symbicort] 160-4.5 mcg/actuation HFA aerosol inhaler 2 inh inhalation BID glimepiride 2 mg tablet 2 mg PO BIDWM Spiriva Respimat 2.5 mcg/actuation mist 2 puff INHALATION DAILY Discontinued doxycycline hyclate 50 mg capsule 50 mg PO BID 7 Days Qty: 14 0RF Patient Comments: FILLED 12/15/23 FOR 7 DAYS Activity: ambulate only with your walker and other Activity Detail: NWB on the left Diet: advance to your usual diet Print Language: Korean Forms: Portal Instructions Follow Up Appointments: Call Monday to set up appointment with PCP, will need BMP and CBC within 1 week follow up in Wound clinic as scheduled. Discharge location: Home
--- NOTE | 2023-12-25 13:18 | CM.DCFOLLOWU ---
1st attempt 12/25/23
--- NOTE | 2023-12-26 11:43 | CM.DCFOLLOWU ---
2nd attempt 12/26/23
--- NOTE | 2023-12-27 13:54 | CM.DCFOLLOWU ---
Person spoke with: patient's How are you feeling? well How is your pain? none Did you understand your discharge instructions? yes Do you have any questions about your discharge instructions? no Were you given any prescriptions at discharge? yes Were you able to get your prescriptions filled? yes Do you understand how to take your medications as ordered? yes Do you have any questions about your follow up appointment and do you plan to keep your follow up appointment? no questions, follows scheduled by Is there anything else that you would like to discuss? no Questions/Comments/Concerns/Other: none
== END 2023-12-23 14:40 | disposition home or self-care (01) | DRG 145 ==
LOC: ER 21:33 → MS 23:07
PROVIDERS: Family Medicine; Physician Assistant; Registered Nurse; Admitting Provider Family Medicine; Emergency Provider Internal Medicine; PCP Family Medicine; Visit Provider Family Medicine
DX: J20.9 Acute bronchitis, unspecified (principal); J44.0 Chronic obstructive pulmonary disease with (acute) lower respiratory infection; J44.1 Chronic obstructive pulmonary disease with (acute) exacerbation; N17.9 Acute kidney failure, unspecified; E86.0 Dehydration; R00.0 Tachycardia, unspecified; R06.03 Acute respiratory distress; I95.9 Hypotension, unspecified; I25.10 Atherosclerotic heart disease of native coronary artery without angina pectoris; E11.65 Type 2 diabetes mellitus with hyperglycemia; D50.9 Iron deficiency anemia, unspecified; E44.0 Moderate protein-calorie malnutrition; I13.0 Hypertensive heart and chronic kidney disease with heart failure and stage 1 through stage 4 chronic kidney disease, or unspecified chronic kidney disease; N18.31 Chronic kidney disease, stage 3a; I50.9 Heart failure, unspecified; E87.6 Hypokalemia; L97.519 Non-pressure chronic ulcer of other part of right foot with unspecified severity; E11.42 Type 2 diabetes mellitus with diabetic polyneuropathy; I15.2 Hypertension secondary to endocrine disorders; E87.1 Hypo-osmolality and hyponatremia; R53.1 Weakness; E11.22 Type 2 diabetes mellitus with diabetic chronic kidney disease; I70.209 Unspecified atherosclerosis of native arteries of extremities, unspecified extremity; F03.90 Unspecified dementia, unspecified severity, without behavioral disturbance, psychotic disturbance, mood disturbance, and anxiety; E78.00 Pure hypercholesterolemia, unspecified; N40.1 Benign prostatic hyperplasia with lower urinary tract symptoms; N13.8 Other obstructive and reflux uropathy; I25.2 Old myocardial infarction; M10.9 Gout, unspecified; G25.81 Restless legs syndrome; Z98.890 Other specified postprocedural states; Z90.79 Acquired absence of other genital organ(s); Z95.5 Presence of coronary angioplasty implant and graft; Z90.49 Acquired absence of other specified parts of digestive tract; Z98.49 Cataract extraction status, unspecified eye; Z89.431 Acquired absence of right foot; F17.210 Nicotine dependence, cigarettes, uncomplicated; Z79.82 Long term (current) use of aspirin; Z79.02 Long term (current) use of antithrombotics/antiplatelets; Z68.27 Body mass index [BMI] 27.0-27.9, adult; Z79.84 Long term (current) use of oral hypoglycemic drugs; Z79.899 Other long term (current) drug therapy; Z79.85 Long-term (current) use of injectable non-insulin antidiabetic drugs
CPT/HCPCS: 36415; 71045; 80048; 80053; 81001; 82800; 82948; 83605; 83735; 83880; 84100; 84484; 85025; 85610; 85730; 87040; 87070; 87086; 93005; 94640; 94667; 94668; 94761; 96361; 96365; 96366; 96367; 96372; 96375; 97165; 99285; G0328; J2405; J2919; J3010; J3475

== ENCOUNTER 2023-12-26 15:56 | Outpatient (OUT) | payer OTHER, SELFPAY | END 2023-12-26 15:57 | disposition home or self-care (01) | LOC: WC 15:56 | PROVIDERS: PCP Family Medicine; Visit Provider Podiatrist Foot & Ankle Surgery | DX: T87.89 Other complications of amputation stump (principal) | CPT/HCPCS: G0463 ==

== ENCOUNTER 2023-12-30 18:01 | Observation (INO) | payer OTHER, SELFPAY ==
[2023-12-30] VITALS (21 sets, daily range): BP systolic 83–110; BP diastolic 56–64; PULSE 68–99; TEMP 36.4–36.7; O2SAT 86–100; BMI 28.2; BMI 26.6
--- NOTE | 2023-12-30 18:13 | XR_ITS ---
The [address] [address] Patient Name: MYRA FELIPE MRN: [id number] date: 1965 Sex: M Assigned Patient Location: ER Current Patient Location: ED.MAIN Accession/Order Number: [id number] Exam Date: 12/30/2023 18:23 Report Date: 12/30/2023 19:37 At the request of: JONATHAN CASON Procedure: XR chest 1V EXAM: XR chest 1V HISTORY: Chest pain COMPARISON: 12/21/2023 and earlier chest x-ray, CT abdomen pelvis including the lung bases 12/09/2023. TECHNIQUE: AP portable upright chest x-ray. FINDINGS: Lung markings prominent related to poor inspiration but no infiltrate or edema or other acute process seen. Heart size normal for technique. No pleural effusion or pneumothorax. XR/XR chest 1V IMPRESSION: Stable chest x-ray, no acute findings Electronically authenticated by: VANESSA BAPTISTE Date: 12/30/2023 19:37
--- NOTE | 2023-12-30 18:13 | ECG_ITS ---
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
--- NOTE | 2023-12-30 18:13 | ED.CHESTPAI1 ---
HPI - Chest Pain General Chief Complaint: Chest Pain Stated Complaint: DEHYDRATION Time Seen by Provider: 12/30/23 18:07 Source: patient Mode of arrival: ambulance Limitations: other Limitations comment: Drowsy History of Present Illness HPI narrative: 58-year-old male presents to the emergency department for chest pain and shortness of breath. He has been having this for several days. When he walks across the room he gets a pressure in his chest and he gets more short of breath. He has a history of CAD and has 4 stents. No fever or injury or cough. He does not complain of back pain. Related Data Home Medications ?Medication ?Instructions ?Recorded ?Confirmed empagliflozin 10 mg tablet 10 mg PO DAILY 03/03/23 12/30/23 (Jardiance) metformin 1,000 mg tablet 1,000 mg PO BID 03/03/23 12/30/23 nitroglycerin 0.4 mg sublingual 0.4 mg sublingual Q5M PRN chest 03/03/23 12/30/23 tablet pain omeprazole 40 mg capsule,delayed 40 mg PO DAILY 03/03/23 12/30/23 release pregabalin 200 mg capsule 200 mg PO TID 03/03/23 12/30/23 fremanezumab-vfrm 225 mg/1.5 mL 225 mg subcut .QMonth 08/03/23 12/30/23 subcutaneous auto-injector (Ajovy) isosorbide mononitrate 30 mg 30 mg PO DAILY 08/03/23 12/30/23 tablet,extended release 24 hr albuterol sulfate 90 mcg/actuation 2 inh inhalation Q8H PRN shortness 12/09/23 12/30/23 aerosol inhaler (Proventil HFA) of breath or wheezing aspirin 81 mg tablet,delayed 81 mg PO DAILY 12/09/23 12/30/23 release atorvastatin 80 mg tablet 80 mg PO DAILY 12/09/23 12/30/23 clopidogrel 75 mg tablet 75 mg PO DAILY 12/09/23 12/30/23 dulaglutide 0.75 mg/0.5 mL 0.75 mg subcut QWEEK 12/09/23 12/30/23 subcutaneous pen injector (Bharathi) metoprolol tartrate 100 mg tablet 50 mg PO BID 12/09/23 12/30/23 rimegepant 75 mg disintegrating 75 mg PO Q2H PRN migraine headache 12/09/23 12/30/23 tablet (Nurtec ODT) sildenafil 100 mg tablet 100 mg PO Q24H PRN erectile 12/09/23 12/30/23 dysfunction sitagliptin phosphate 100 mg 100 mg PO DAILY 12/09/23 12/30/23 tablet (Januvia) tamsulosin 0.4 mg capsule 0.4 mg PO BID 12/09/23 12/30/23 valsartan 160 1 tab PO DAILY 12/09/23 12/30/23 mg-hydrochlorothiazide 12.5 mg tablet (Diovan HCT) amitriptyline 25 mg tablet 25 mg PO DAILY 12/10/23 12/30/23 budesonide-formoterol HFA 160 2 inh inhalation BID 12/10/23 12/30/23 mcg-4.5 mcg/actuation aerosol inhaler (Symbicort) furosemide 40 mg tablet (Lasix) 40 mg PO DAILY 12/10/23 12/30/23 glimepiride 2 mg tablet 2 mg PO BIDWM 12/10/23 12/30/23 ropinirole 1 mg tablet 1 mg PO TID 12/10/23 12/30/23 tiotropium bromide 2.5 2 puff inhalation DAILY 12/22/23 12/30/23 mcg/actuation mist for inhalation (Spiriva Respimat) Previous Rx's ?Medication ?Instructions ?Recorded levofloxacin 250 mg tablet 250 mg PO DAILY #5 tabs 12/23/23 hydrocodone 5 mg-acetaminophen 325 1 tab PO Q8H PRN pain 7 days #21 12/26/23 mg tablet tabs Allergies Allergy/AdvReac Type Severity Reaction Status Date / Time Penicillins Allergy Severe Swelling Verified 12/21/23 19:44 of Lip/Tongue/Throat bee venom protein (honey bee) Allergy Swelling Verified 12/21/23 19:44 of Lip/Tongue/Throat latex Allergy Rash Verified 12/21/23 19:44 Review of Systems ROS Narrative A ten point review of systems is negative except as noted above. [facility] Medical History (Updated 12/30/23 @ 18:35 by Jacky Camacho MD) Acute osteomyelitis of right foot ?M86.171 - Other acute osteomyelitis, right ankle and foot (ICD-10) CKD stage 3b, GFR 30-44 ml/min ?N18.32 - Chronic kidney disease, stage 3b (ICD-10) Chronic ulcer of right foot ?L97.519 - Non-pressure chronic ulcer of other part of right foot with unspecified severity (ICD-10) DM2 (diabetes mellitus, type 2) ?E11.9 - Type 2 diabetes mellitus without complications (ICD-10) Coronary artery disease ?I25.10 - Atherosclerotic heart disease of [place] coronary artery without angina pectoris (ICD-10) COPD (chronic obstructive pulmonary disease) ?J44.9 - Chronic obstructive pulmonary disease, unspecified (ICD-10) Hypertension ?I10 - Essential (primary) hypertension (ICD-10) Post-op bleeding Acute pain of right hip ?M25.551 - Pain in right hip (ICD-10) Foot osteomyelitis ?M86.9 - Osteomyelitis, unspecified (ICD-10) Ulcer of right foot with necrosis of bone ?L97.514 - Non-pressure chronic ulcer of other part of right foot with necrosis of bone (ICD-10) Hypocalcemia ?E83.51 - Hypocalcemia (ICD-10) Hypomagnesemia ?E83.42 - Hypomagnesemia (ICD-10) Sepsis ?A41.9 - Sepsis, unspecified organism (ICD-10) Wound of foot ?S91.309A - Unspecified open wound, unspecified foot, initial encounter (ICD-10) Abscess of right foot ?L02.611 - Cutaneous abscess of right foot (ICD-10) Anticoagulated ?Z79.01 - long term care social worker (current) use of anticoagulants (ICD-10) Diabetic infection of right foot ?E11.628 - Type 2 diabetes mellitus with other skin complications (ICD-10) ?L08.9 - Local infection of the skin and subcutaneous tissue, unspecified (ICD-10) Puncture wound of right foot ?S91.331A - Puncture wound without foreign body, right foot, initial encounter (ICD-10) Cellulitis of foot, right ?L03.115 - Cellulitis of right lower limb (ICD-10) ROEL (acute kidney injury) ?N17.9 - Acute kidney failure, unspecified (ICD-10) Sepsis ?A41.9 - Sepsis, unspecified organism (ICD-10) CHF (congestive heart failure) ?I50.9 - Heart failure, unspecified (ICD-10) Migraine headache ?G43.909 - Migraine, unspecified, not intractable, without status migrainosus (ICD-10) Tobacco abuse ?Z72.0 - Tobacco use (ICD-10) Carpal tunnel syndrome ?G56.00 - Carpal tunnel syndrome, unspecified upper limb (ICD-10) Back pain ?M54.9 - Dorsalgia, unspecified (ICD-10) Arthritis ?M19.90 - Unspecified osteoarthritis, unspecified site (ICD-10) Restless leg ?G25.81 - Restless legs syndrome (ICD-10) GERD (gastroesophageal reflux disease) ?K21.9 - Gastro-esophageal reflux disease without esophagitis (ICD-10) High cholesterol ?E78.00 - Pure hypercholesterolemia, unspecified (ICD-10) Myocardial infarction ?I21.9 - Acute myocardial infarction, unspecified (ICD-10) BPH with obstruction/lower urinary tract symptoms ?N40.1 - Benign prostatic hyperplasia with lower urinary tract symptoms (ICD-10) ?N13.8 - Other obstructive and reflux uropathy (ICD-10) Dementia ?F03.90 - Unspecified dementia, unspecified severity, without behavioral disturbance, psychotic disturbance, mood disturbance, and anxiety (ICD-10) CKD stage 4 due to type 2 diabetes mellitus ?E11.22 - Type 2 diabetes mellitus with diabetic chronic kidney disease (ICD-10) ?N18.4 - Chronic kidney disease, stage 4 (severe) (ICD-10) Hyperlipidemia ?E78.5 - Hyperlipidemia, unspecified (ICD-10) Polyp of prostate with urinary obstruction ?N40.1 - Benign prostatic hyperplasia with lower urinary tract symptoms (ICD-10) ?N13.8 - Other obstructive and reflux uropathy (ICD-10) Femoral artery stenosis ?I70.209 - Unspecified atherosclerosis of [place] arteries of extremities, unspecified extremity (ICD-10) Glaucoma ?H40.9 - Unspecified glaucoma (ICD-10) Carpal tunnel syndrome, bilateral ?G56.03 - Carpal tunnel syndrome, bilateral upper limbs (ICD-10) Gout ?M10.9 - Gout, unspecified (ICD-10) Neuropathy ?G62.9 - Polyneuropathy, unspecified (ICD-10) Chronic kidney disease ?N18.9 - Chronic kidney disease, unspecified (ICD-10) Weakness ?R53.1 - Weakness (ICD-10) Surgical History (Updated 09/15/23 @ 10:12 by Shana George NP) H/O foot surgery (08/10/23) ?Z98.890 - Other specified postprocedural states (ICD-10) S/P TURP (04/13/23) ?Z90.79 - Acquired absence of other genital organ(s) (ICD-10) H/O foot surgery (08/05/23) ?Z98.890 - Other specified postprocedural states (ICD-10) History of heart artery stent ?Z95.5 - Presence of coronary angioplasty implant and graft (ICD-10) History of spinal surgery ?Z98.890 - Other specified postprocedural states (ICD-10) History of colonoscopy ?Z98.890 - Other specified postprocedural states (ICD-10) History of carpal tunnel release ?Z98.890 - Other specified postprocedural states (ICD-10) History of cataract extraction ?Z98.49 - Cataract extraction status, unspecified eye (ICD-10) History of appendectomy ?Z90.49 - Acquired absence of other specified parts of digestive tract (ICD-10) History of heart artery stent ?Z95.5 - Presence of coronary angioplasty implant and graft (ICD-10) Family History (Updated 03/03/23 @ 18:46 by Darling Sharma RN) Mother Family history of CHF (congestive heart failure) Family history of diabetes mellitus Family history of hypertension Grandfather Family history of CHF (congestive heart failure) Family history of diabetes mellitus Family history of hypertension Family history of myocardial infarction Grandmother Family history of hypertension Social History (Updated 12/09/23 @ 17:38 by Marybel Stevens LPN) Within the past year, how often did you have a drink containing alcohol: never Score interpretation: A score less than 4 is consistent with normal alcohol consumption. Smoking status: Current every day smoker What tobacco products do you use: cigarettes Cigarettes per day: 20 Years smoked: 42 Smoking pack-years: 42.00 Non-prescribed substance use: denies use Previous occupational history: DISABLED Highest level of school completed/degree received: Associate degree: occupational, technical, vocational program In a typical week, how many times do you talk on the telephone with family, friends, or neighbors: never How often do you get together with friends or relatives: never Do you belong to any clubs or organizations such as moravian groups unions, fraternal or athletic groups, or school groups: no Little interest or pleasure in doing things: not at all Feeling down, depressed, or hopeless: not at all Do you think of yourself as: straight/heterosexual Gender Identity: male Exam Narrative Exam Narrative: Nurses note and vital signs reviewed and patient is not hypoxic. General: The patient appears well and in no apparent distress. Patient is resting comfortably on cart. Skin: Warm, dry, no pallor noted. There is no rash noted. Head: Normocephalic, atraumatic Eye: Normal conjunctiva, no drainage, Ears, Nose, Mouth, and Throat: oral mucosa is moist. Nares patent. Cardiovascular: Regular Rate and Rhythm Respiratory: Patient is in no distress, no accessory muscle use, lungs are clear to auscultation, no wheezing, rales or rhonchi. 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 Neurological: A&O x4, normal speech Psychiatric: Cooperative Constitutional Vital Signs, click to edit/add: Last Vital Signs Temp 98.1 F 12/30/23 18:02 Pulse 96 H 12/30/23 18:20 Resp 15 12/30/23 18:20 BP 98/58 12/30/23 18:07 Pulse Ox 100 12/30/23 18:25 O2 Del Method Room Air 12/30/23 18:05 Course Vital Signs Vital signs: Vital Signs Temperature 98.1 F 12/30/23 18:02 Pulse Rate 97 H 12/30/23 18:02 Respiratory Rate 18 12/30/23 18:02 Blood Pressure 108/63 12/30/23 18:02 Pulse Oximetry 99 12/30/23 18:02 Oxygen Delivery Method Room Air 12/30/23 18:02 Temperature 98.1 F 12/30/23 18:02 Pulse Rate 96 H 12/30/23 18:20 Respiratory Rate 15 12/30/23 18:20 Blood Pressure 98/58 12/30/23 18:07 Pulse Oximetry 100 12/30/23 18:25 Oxygen Delivery Method Room Air 12/30/23 18:05 MDM - Chest Pain MDM Narrative Medical decision making narrative: Tests are ordered and the patient is signed out to Dr. Montiel at change of shift. Differential Diagnosis Differential diagnosis: Likely pneumothorax, unstable angina pectoris, atypical chest pain, st elevation myocardial infarction, chest pain and other (COPD exacerbation) Lab Data Attestation: I reviewed the patient's lab results. Labs: Lab Results 12/30/23 Range/Units 18:15 WBC 10.7 (4.0-11.0) 10^3/uL RBC 3.49 L (4.70-6.10) 10^6/uL Hgb 8.5 L (14.0-18.0) g/dL Hct 27.1 L (42.0-54.0) % MCV 77.7 L (80.0-94.0) fL MCH 24.4 L (25.9-34.0) pg MCHC 31.4 (29.9-35.2) g/dL RDW 15.9 H (11.0-15.0) % Plt Count 368 (150-450) 10^3/uL MPV 10.4 (9.5-13.5) fL Neut % (Auto) 66.4 (43.0-75.0) % Lymph % (Auto) 21.5 (20.5-60.0) % [place] % (Auto) 8.4 (1.7-12.0) % Eos % (Auto) 2.3 (0.9-7.0) % Baso % (Auto) 0.7 (0.2-2.0) % Neut # (Auto) 7.1 H (1.4-6.5) 10^3/uL Lymph # (Auto) 2.3 (1.2-3.8) 10^3/uL [place] # (Auto) 0.9 H (0.3-0.8) 10^3/uL Eos # (Auto) 0.3 (0.0-0.7) 10^3/uL Baso # (Auto) 0.1 (0.0-0.1) 10^3/uL Abs Immat Gran (auto) 0.07 H (0.00-0.03) 10^3/uL Imm/Tot Granulo (auto) 0.7 H (0.0-0.5) % ECG Data Attestation: I personally reviewed and interpreted this ECG as follows: (EKG on my interpretation shows normal sinus rhythm with a rate of 94 and no acute change) Discharge Plan Discharge Patient Disposition: Still a Patient
[2023-12-30 18:21] LABS: Basophils Absolute Auto 0.1 10^3/uL (0.0-0.1); Basophils Percent Auto 0.7 % (0.2-2.0); Eosinophils Absolute Auto 0.3 10^3/uL (0.0-0.7); Eosinophils Percent Auto 2.3 % (0.9-7.0); Hematocrit 27.1 % (42.0-54.0); Hemoglobin 8.5 g/dL (14.0-18.0); Immature Granulocytes Abs Auto 0.07 10^3/uL (0.00-0.03); Immature Granulocytes Pct Auto 0.7 % (0.0-0.5); Lymphocytes Absolute Auto 2.3 10^3/uL (1.2-3.8); Lymphocytes Percent Auto 21.5 % (20.5-60.0); Mean Corpuscular HGB Conc 31.4 g/dL (29.9-35.2); Mean Corpuscular Hemoglobin 24.4 pg (25.9-34.0); Mean Corpuscular Volume 77.7 fL (80.0-94.0); Mean Platelet Volume 10.4 fL (9.5-13.5); Monocytes Absolute Auto 0.9 10^3/uL (0.3-0.8); Monocytes Percent Auto 8.4 % (1.7-12.0); Neutrophils Absolute Auto 7.1 10^3/uL (1.4-6.5); Neutrophils Percent Auto 66.4 % (43.0-75.0); Platelet Count 368 10^3/uL (150-450); Red Blood Count 3.49 10^6/uL (4.70-6.10); Red Cell Distribution Width 15.9 % (11.0-15.0); White Blood Count 10.7 10^3/uL (4.0-11.0)
[2023-12-30] MEDS: ASPIRIN 81 MG TAB.CHEW 324 MG PO (18:32)
[2023-12-30] MEDS: 0.9 % SODIUM CHLORIDE 500 ML IV (18:34)
[2023-12-30 18:38] LABS: Anion Gap 13.4; BUN Creatinine Ratio 9.9; Calcium 9.2 mg/dL (8.5-10.1); Carbon Dioxide 27.2 mmol/L (21.0-32.0); Chloride 95 mmol/L (98-107); Estimated GFR (African America 37 (>=60); Estimated GFR (Non-African Ame 30 (>=60); Glucose 193 mg/dL (74-106); Potassium 3.6 mmol/L (3.5-5.1); Sodium 132 mmol/L (136-145); Troponin I High Sensitivity 6.8 pg/mL (4.0-76.1)
--- OUTSIDE RECORDS SUMMARY | 2023-12-30 18:46 | XMS_ITS | CCD ---
Author Organization [facility] Care Team Providers Care Surg Nurse Name Role Phone Jenaro Lynch Unavailable Unavailable Unavailable Jenaro Lynch Unavailable Norris Faganjuan Unavailable Verona Whaley Unavailable Doris Barnes Unavailable DO Jenaro Lynch Primary Care Provider [phone] JERARDO Mclaughlin Attending Provider DO Jenaro Lynch Attending Provider ELAINE ., DUARTE Attending Unavailable ELAINE Hernandez, DUARTE Admitting Unavailable DR LYSSA PERDOMO Consulting Unavailable SYED, DR EASON Primary Care Unavailable DUARTE MÁRQUEZ Consulting Unavailable JENARO LYNCH Primary Care Physician [phone] Syed, Dr. Jenaro Orona Primary Care UnavailDolores [...] Provider DO Jenaro Lynch Primary Care Provider [phone] MD Nancy Wilson Emergency Provider [phone] JERARDO Mclaughlin Attending Provider JERARDO Mclaughlin Referring Provider Curt, LINDSEY Hooker Attending Provider DO Jenaro Lynch Primary Care Provider Jenaro Lynch DO Primary Care Provider ROWE, Rigo R Attending Unavailable Simon, Mohamed F. Referring Unavailable Simon, Mohamed F. Attending Unavailable Simon, Mohamed F. Admitting Unavailable SIMON, MOHAMED F Attending Unavailable HIGHLANDER, PAULA Hooker Referring Unavailable SIMON, MOHAMED F Admitting Unavailable SIMON, MOHAMED F Attending Unavailable ONLY), IP WOUND CARE SERVICES (INPATIENT Consult ing Unavailable DERISO, ROSIE C Referring Unavailable BROOKENS, MAAME Hooker Referring Unavailable DERISO, ROSIE C Referring Unavailable ROWE, Rigo R Attending Unavailable ROWE, Rigo R Attending Unavailable ROWE, Rigo R Attending Unavailable ROWE, Rigo R Attending Unavailable ROWE, Rigo R Attending Unavailable NONE, XXXX Referring Unavailable Simon, Mohamed F. Admitting Unavailable Simon, Mohamed F. Attending Unavailable ROWE, Rigo R Attending Unavailable ROWE, Rigo R Attending Unavailable ROWE, Rigo R Attending Unavailable ROWE, Rigo R Attending Unavailable ROWE, Rigo R Referring Unavailable ROWE, Rigo R Admitting Unavailable ROWE, Rigo R Attending Unavailable ROWE, Rigo R Referring Unavailable ROWE, Rigo R Admitting Unavailable Simon, Mohamed F. Admitting Unavailable Simno, Mohamed F. Attending Unavailable Simon, Mohamed F. Referring Unavailable ROWE, Rigo R Attending Unavailable ROWE, Rigo R Referring Unavailable ROWE, Rigo R Attending Unavailable ROWE, Rigo R Attending Unavailable ROWE, Rigo R Attending Unavailable ROWE, Rigo R Attending Unavailable Kuns, DO Jenaro Primary Care Provider [phone] Jenaro Lynch Primary Care Unavailable Shana Mclaughlin Referring Unavailable Shana Mclaughlin Attending Unavailable Shana Mclaughlin Admitting Unavailable Jenaro Lynch Primary Care Unavailable Nancy Wilson Attending Unavailable Nancy Wilson Admitting Unavailable Faithander, Paula Hooker Admitting Unavailable Highlander, Paula Hooker Attending Unavailable Highlbhavin, Paula Hooker Attending Unavailable Highlbhavin, Paula Hooker Admitting Unavailable Highlander, Paula Hooker Attending Unavailable Highlbhavin, Paula Hooker Admitting Unavailable KunJenaro diaz Primary Care Unavailable Paula Elias Attending Unavailable Paula Elias Admitting Unavailable PADMINI MONTES Attending Unavailable PADMINI MONTES Attending Unavailable RAULITO INMAN Attending Unavailable JENARO LYNCH RIGO Primary Care Unavailable Allergies Allergy Classification Reported Allergen(s) Allergy Type Date of Onset Reaction(s) Facility (20 sources) natural latex rubber; Translations: [Latex] Allergy to substance (finding) 03-27-20 23 Itching (finding), Eruption of skin (disorder) [facility] (20 sources) Penicillins; Translations: [Penicillins] Allergy to drug (finding) 11-05-19 14 Anaphylactoid reaction (disorder) [facility] (20 sources) Acetaminophen / oxyCODONE Drug Allergy vomiting [facility] Other (20 sources) tamsulosin; Translations: [TAMSULOSIN] Drug Allergy 07-14-19 21 hives [facility] (20 sources) PENICIILIN Propensity to adverse reactions SWELLING OF AIRWAY [facility] Other (10 sources) Acetaminophen; Translations: [ACETAMINOPHEN] Drug Allergy 07-14-19 21 Vomiting [facility] (11 sources) oxyCODONE; Translations: [Oxycodone] Drug Allergy 02-08-20 17 Vomiting [facility] (1 source) Penicillins Drug allergy (disorder) 09-23-19 14 [facility] Repository (16 sources) Penicillin G; Translations: [penicillin G benzathine] Drug Allergy [facility] (8 sources) Penicillin Drug Allergy anaphylaxis [facility] Other (1 source) Latex Allergy to substance 03-27-20 23 Unknown [facility] (1 source) Penicillins Drug Allergy 03-27-20 23 Anaphylaxis [facility] Work Phone: (4 sources) Isosorbide; Translations: [ISOSORBIDE MONONITRATE] Drug Allergy 08-05-19 15 [facility] Repository (1 source) Penicillins Drug allergy (disorder) 07-31-19 24 [facility] Repository (1 source) tamsulosin Drug Allergy 07-31-19 [facility] Repository Medications Current Medications Medication Drug [...] 1:00am July 14, 2020 12:39pm Start: 10-10-2014 [place] 325 mg-5 mg oral tablet 1 tab(s), [...] 30 Refills: 6 Ordered: 11-Jan-2023 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 Start : 11-Jan-2023 Active new start Start: [...] 1:00am Start: 02-14-2023 take 1 capsule by [facility] twice daily tamsulosin 0.4 mg Cap 0.4 mg = 1 cap(s), Oral, BID, # 60 cap(s), Refills(s) 3, Pharmacy: [facility]/pharmacy #[id number], 182, cm, 02/14/23 8:58:00 EDT, Height/Length Dosing, 94, kg, 01/30/23 10:24:00 EDT, Weight Dosing Start Date: 02/14/23 Status: Ordered take 1 capsule by [facility] once daily Tamsulosin HCl - 0.4 MG Oral Capsule TAKE 1 CAPSULE Daily Quantity: 0 Refills: 0 Ordered: 15-Feb-2023 DO [facility] (20 sources) Start: 01-27-2014 Start: 01-27-2014 [facility] as d irected Use as directed. Jan, Active Tiotropium Steger (Spiriva With Handihaler) 18 mcg capsule, w/inhalation device (5 sources) Start: 07-12-2023 take 1 capsule by inhalation once daily Tiotropium Steger (Spiriva With Handihaler) 18 mcg capsule, w/inhalation device Active 1 CAP INHALATION Daily July 12, 2023 1:00am puncture 1 cap using device; one dose = 2 inhalations Start: 07-12-2023 take 1 capsule by in halation once daily Tiotropium Steger (Spiriva With Handihaler) 18 mcg capsule, w/inhalation [...] Start: 07-04-2022 take 1 tablet by kalie every twelve hours tiZANidine HCl 4 MG 1 tablet as needed Orally Twice a day Jun, Active take 2 tablets by [facility] at bedtime tiZANidine HCl - 4 MG [...] Taking; Refills: 0; Provider: Syed Guerra Start: 09-25-2023 take 1 tablet by kalie th every [...] # 2 cap(s), Refills(s) 0, Pharmacy: [facility]/pharmacy #[id number], 182, cm, 01/30/23 10:24:00 [...] take 1 tablet by mouth once daily Olmesartan-[place] chlorothiazide (Benicar Hct) 40-12.5 mg Tablet Discontinued [...] Provider: Syed Guerra take 2 tablets by mo uth twice daily before mealtime omeprazole OTC (PriLOSEC [...] [Coronary atherosclerosis of unspecified type of vessel, [place] or graft] Onset: 2 Resolved: 2 Chronic [...] limb due to atherosclerosis; Translations: [Atherosclerosis of [place] arteries of extremities with gangrene, right leg] [...] sources) Long-term current use of insulin; Translations: [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 insulin] Episodic Other and [...] Test Name Value Interpretation Reference Range Facility [facility] 12-15-2023 L Specimen: [id number] Received: 12/15/23 Status: SOUDaniel Req Num: [id number] Spec Type: Surgical Subm Dr: Paula Elias DPM, MS Tissues: A DIGIT AMPUTATION (RT METATARSAL) Procedures: HE/3, Gross/Micro L4, Decalcification Age/ Patient Sex Location Account Attending Physician Solomon Feldman SR 58/M LABELL [id number] Paula Elias DPM, MS SPEC NUM: [id number] RECD: 12/15/23 STATUS: COLTON NATH NUM: [id number] SHAKIRA: 12/15/[address]: Paula Elias DPM, MS ENTERED: 12/15/[address]: Jericho Carey SPEC TYPE: Surgical [...] and submitted following decalcification as follows: Specimen: [id number] Received: 12/15/23 Status: COLTON Yapcindy Num: [id number] Spec Type: Surgical Subm Dr: Paula Elias,LINDSEY, MS Tissues: A DIGIT AMPUTATION (RT METATARSAL) Procedures: HE/3, Gross/Micro L4, Decalcification Patient: Solomon Feldman SR [id number] (Continued) Specimen: [id number] Received: 12/15/23 (Continued) Gross Description (Continued) Signed (signature on file) Chin-Jerry Sotelo, MD 12/20/23 1207 Specimen: [id number] Received: 12/15/23 Status: COLTON Nath Num: [id number] Spec Type: Surgical Subm Dr: Paula Elias,LINDSEY, MS Tissues: A DIGIT AMPUTATION (RT METATARSAL) Procedures: HE/3, Gross/Micro L4, Decalcification Patient: Solomon Fledman SR [id number] (Continued) Specimen: [id number] Received: 12/15/23 (Continued) Gross Description (Continued) A1: Margin #1 A2: Margins #2, #3 A3: Margins #4, #5 TW Microscopic Description Microscopic examinations are performed supporting the above interpretation CPT Codes 05303, 73829 Specimen: [id number] Received: 12/15/23 Status: COLTON Nath Num: [id number] Spec Type: Surgical Subm Dr: Paula Elias,LINDSEY, MS Tissues: A DIGIT AMPUTATION (RT METATARSAL) Procedures: HE/3, Gross/Micro L4, Decalcification Patient: Solomon Feldman SR [id number] (Continued) Signed (signature on file) Victor Hugo Sotelo MD 12/20/23 7248 Normal [facility] Basophils Auto (Bld) [#/Vol] on 12-10-2023 Basophils (Bld) [#/Vol] 0.1 10 3/uL 0.0-0.1 [facility] Basophils/100 WBC Auto (Bld) on 12-10-2023 Basophils/100 WBC (Bld) 0.9 % 0.2-2.0 [facility] Eosinophils/100 WBC Auto (Bl d)on 12-10-2023 Eosinophils/100 WBC (Bld) 2.6 % 0.9-7.0 [facility] Erythrocyte distribution wid th Auto (RBC) [Ratio]on 12-10-2023 Erythrocyte distribution width (RBC) [Ratio] 17.7 % High 11.0-15.0 [facility] Estimated glomerular filtrat ion rate (GFR) non- Americanon 12-10-2023 GFR/1.73 sq M.predicted among non-blacks MDRD (S/P/Bld) [Vol rate/Area] 38 mL/min/{1.73_m2} Low >=60 [facility] Globulin Calc (S) [Mass/Vol] on 12-10-2023 Globulin (S) [Mass/Vol] 3.9 g/dL [facility] Hematocrit Auto (Bld) [Volum e fraction]on 12-10-2023 Hematocrit (Bld) [Volume fraction] 34.2 % Low 42.0-54.0 [facility] Hemoglobin [Mass/volume] in Bloodon 12-10-2023 Hemoglobin (Bld) [Mass/Vol] 10.5 g/dL Low 14.0-18.0 [facility] Laboratory - Chemistry and C hemistry - challengeon 12-10-2023 Albumin [Mass/Vol] 2.8 g/dL Low 3.4-5.0 [facility] ALP [Catalytic activity/Vol] 119 U/L High 46-116 [facility] ALT [Catalytic activity/Vol] 11 U/L Low 16-63 [facility] AST [Catalytic activity/Vol] 10 U/L Low 15-37 [facility] Bilirubin [Mass/Vol] 0.4 mg/dL 0.2-1.0 [facility] Calcium [Mass/Vol] 8.4 mg/dL Low 8.5-10.1 [facility] Chloride [Moles/Vol] 101 mmol/L 98-107 [facility] CO2 [Moles/Vol] 27.0 mmol/L 21.0-32.0 [facility] Creatinine [Mass/Vol] 1.83 mg/dL High 0.70-1.30 [facility] GFR/1.73 sq M.predicted MDRD (S/P/Bld) [Vol rate/Area] 46 mL/min/{1.73_m2} Low >=60 [facility] Glucose [Mass/Vol] 113 mg/dL High 74-106 [facility] Potassium [Moles/Vol] 3.3 mmol/L Low 3.5-5.1 [facility] Protein [Mass/Vol] 6.7 g/dL 6.4-8.2 [facility] Sodium [Moles/Vol] 134 mmol/L Low 136-145 [facility] Urea nitrogen [Mass/Vol] 21.0 mg/dL High 7.0-18.0 [facility] Urea nitrogen/Creatinine [Mass ratio] 11.5 mg/mg [facility] Laboratory - Hematology and Cell countson 12-10-2023 Immature granulocytes/100 WBC (Bld) 0.3 % 0.0-0.5 [facility] Leukocytes [#/volume] correc jorge for nucleated erythrocytes in Blood by Automated counon 12-10-2023 WBC corrected for nucl RBC Auto (Bld) [#/Vol] 9.8 10 3/uL 4.0-11.0 [facility] Lymphocytes Auto (Bld) [#/Vo l]on 12-10-2023 Lymphocytes (Bld) [#/Vol] 1.5 10 3/uL 1.2-3.8 [facility] Lymphocytes/100 WBC Auto (Bl d)on 12-10-2023 Lymphocytes/100 WBC (Bld) 15.8 % Low 20.5-60.0 [facility] MCH Auto (RBC) [Entitic mass ]on 12-10-2023 MCH (RBC) [Entitic mass] 25.1 pg Low 25.9-34.0 [facility] MCHC Auto (RBC) [Mass/Vol]on 12-10-2023 MCHC (RBC) [Mass/Vol] 30.7 g/dL 29.9-35.2 [facility] MCV Auto (RBC) [Entitic vol] on 12-10-2023 MCV (RBC) [Entitic vol] 81.6 fL 80.0-94.0 [facility] Monocytes Auto (Bld) [#/Vol] on 12-10-2023 Monocytes (Bld) [#/Vol] 1.2 10 3/uL High 0.3-0.8 [facility] Monocytes/100 WBC Auto (Bld) on 12-10-2023 Monocytes/100 WBC (Bld) 11.9 % 1.7-12.0 [facility] Neutrophils Auto (Bld) [#/Vo l]on 12-10-2023 Neutrophils (Bld) [#/Vol] 6.7 10 3/uL High 1.4-6.5 [facility] Neutrophils/100 WBC Auto (Bl d)on 12-10-2023 Neutrophils/100 WBC (Bld) 68.5 % 43.0-75.0 [facility] No Panel Informationon 12-09 Eosinophils # (Auto) 0.3 10 3/uL 0.0-0.7 [facility] Immature Granulocyte # (Auto) 0.03 10 3/uL 0.00-0.03 [facility] Platelet mean volume Auto (B ld) [Entitic vol]on 12-10-2023 Platelet mean volume (Bld) [Entitic vol] 10.2 fL 9.5-13.5 [facility] Platelets Auto (Bld) [#/Vol] on 12-10-2023 Platelets (Bld) [#/Vol] 240 10 3/uL 150-450 [facility] RBC Auto (Bld) [#/Vol]on RBC (Bld) [#/Vol] 4.19 10 6/uL Low 4.70-6.10 [facility] Serum or plasma albumin/glob ulin mass ratioon 12-10-2023 Albumin/Globulin [Mass ratio] 0.7 {ratio} [facility] Serum or plasma anion gap de terminationon 12-10-2023 Anion gap [Moles/Vol] 9.3 mmol/L [facility] Basophils Auto (Bld) [#/Vol] on 12-09-2023 Basophils (Bld) [#/Vol] 0.1 10 3/uL 0.0-0.1 [facility] Basophils/100 WBC Auto (Bld) on 12-09-2023 Basophils/100 WBC (Bld) 1.0 % 0.2-2.0 [facility] Eosinophils/100 WBC Auto (Bl d)on 12-09-2023 Eosinophils/100 WBC (Bld) 1.6 % 0.9-7.0 [facility] Erythrocyte distribution wid th Auto (RBC) [Ratio]on 12-09-2023 Erythrocyte distribution width (RBC) [Ratio] 17.7 % High 11.0-15.0 [facility] Estimated glomerular filtrat ion rate (GFR) non- Americanon 12-09-2023 GFR/1.73 sq M.predicted among non-blacks MDRD (S/P/Bld) [Vol rate/Area] 31 mL/min/{1.73_m2} Low >=60 [facility] Fibrin D-dimer [Presence] in Platelet poor plasma by Latex agglutinationon 12-09-2023 Fibrin D-dimer LA Ql (PPP) 3.76 mg/L FEU High <=0.59 [facility] Comment on above: RESULTS CALLED TO [...] on 12-09-2023 Globulin (S) [Mass/Vol] 4.6 g/dL [facility] Hematocrit Auto (Bld) [Volum e fraction]on 12-09-2023 Hematocrit (Bld) [Volume fraction] 39.2 % Low 42.0-54.0 [facility] Hemoglobin [Mass/volume] in Bloodon 12-09-2023 Hemoglobin (Bld) [Mass/Vol] 12.2 g/dL Low 14.0-18.0 [facility] Laboratory - Chemistry and C hemistry - challengeon 12-09-2023 Lactate [Moles/Vol] 2.9 mmol/L High 0.4-2.0 [facility] Comment on above: RESULTS CALLED TO RM SHARPE RN Bilirubin Ql (U) Negative NEGATIVE [facility] Glucose (U) [Mass/Vol] 500 mg/dL Abnormal [facility] Ketones Ql (U) Negative NEGATIVE [facility] pH (U) 6.5 [pH] 5.0-9.0 [facility] Specific gravity (U) [Rel density] 1.020 1.005-1.02 5 [facility] Urobilinogen Qn (U) 0.2 {Brendan'U}/dL 0.2-1.0 [facility] Albumin [Mass/Vol] 3.5 g/dL 3.4-5.0 [facility] ALP [Catalytic activity/Vol] 141 U/L High 46-116 [facility] ALT [Catalytic activity/Vol] 13 U/L Low 16-63 [facility] AST [Catalytic activity/Vol] 8 U/L Low 15-37 [facility] Bilirubin [Mass/Vol] 0.7 mg/dL 0.2-1.0 [facility] Calcium [Mass/Vol] 9.6 mg/dL 8.5-10.1 [facility] Chloride [Moles/Vol] 99 mmol/L 98-107 [facility] CO2 [Moles/Vol] 21.7 mmol/L 21.0-32.0 [facility] Creatinine [Mass/Vol] 2.17 mg/dL High 0.70-1.30 [facility] GFR/1.73 sq M.predicted MDRD (S/P/Bld) [Vol rate/Area] 38 mL/min/{1.73_m2} Low >=60 [facility] Glucose [Mass/Vol] 191 mg/dL High 74-106 [facility] Magnesium [Mass/Vol] 1.6 mg/dL Low 1.8-2.4 [facility] Potassium [Moles/Vol] 3.8 mmol/L 3.5-5.1 [facility] Protein [Mass/Vol] 8.1 g/dL 6.4-8.2 [facility] Sodium [Moles/Vol] 135 mmol/L Low 136-145 [facility] Urea nitrogen [Mass/Vol] 20.0 mg/dL High 7.0-18.0 [facility] Urea nitrogen/Creatinine [Mass ratio] 9.2 mg/mg [facility] Laboratory - Hematology and Cell countson 12-09-2023 Immature granulocytes/100 WBC (Bld) 0.3 % 0.0-0.5 [facility] Laboratory - Microbiology an d Antimicrobial susceptibilityon 12-09-2023 SARS-CoV-2 (COVID-19) RNA NELLY+probe Ql (Unsp spec) Negative NEGATIVE [facility] Comment on above: This test has not [...] inform ationon 12-09-2023 Appearance (U) CLEAR CLEAR [facility] Color (U) YELLOW YELLOW [facility] Laboratory - Urinalysison Leukocyte esterase Test strip Ql (U) Negative NEGATIVE [facility] Nitrite Ql (U) Negative NEGATIVE [facility] Protein Ql (U) Negative NEG/TRACE [facility] Leukocytes [#/volume] correc jorge for nucleated erythrocytes in Blood by Automated counon 12-09-2023 WBC corrected for nucl RBC Auto (Bld) [#/Vol] 9.3 10 3/uL 4.0-11.0 [facility] Lymphocytes Auto (Bld) [#/Vo l]on 12-09-2023 Lymphocytes (Bld) [#/Vol] 1.5 10 3/uL 1.2-3.8 [facility] Lymphocytes/100 WBC Auto (Bl d)on 12-09-2023 Lymphocytes/100 WBC (Bld) 15.7 % Low 20.5-60.0 [facility] MCH Auto (RBC) [Entitic mass ]on 12-09-2023 MCH (RBC) [Entitic mass] 25.6 pg Low 25.9-34.0 [facility] MCHC Auto (RBC) [Mass/Vol]on 12-09-2023 MCHC (RBC) [Mass/Vol] 31.1 g/dL 29.9-35.2 [facility] MCV Auto (RBC) [Entitic vol] on 12-09-2023 MCV (RBC) [Entitic vol] 82.4 fL 80.0-94.0 [facility] Monocytes Auto (Bld) [#/Vol] on 12-09-2023 Monocytes (Bld) [#/Vol] 0.9 10 3/uL High 0.3-0.8 [facility] Monocytes/100 WBC Auto (Bld) on 12-09-2023 Monocytes/100 WBC (Bld) 9.1 % 1.7-12.0 [facility] Neutrophils Auto (Bld) [#/Vo l]on 12-09-2023 Neutrophils (Bld) [#/Vol] 6.7 10 3/uL High 1.4-6.5 [facility] Neutrophils/100 WBC Auto (Bl d)on 12-09-2023 Neutrophils/100 WBC (Bld) 72.3 % 43.0-75.0 [facility] No Panel Informationon 12-08 Urine Microscopic Review NO [facility] Urine Occult Blood Negative NEGATIVE [facility] Eosinophils # (Auto) 0.2 10 3/uL 0.0-0.7 [facility] Immature Granulocyte # (Auto) 0.03 10 3/uL 0.00-0.03 [facility] Troponin I High Sensitivity 8.7 pg/mL 4.0-76.1 [facility] Comment on above: CUT-OFF POINTS HAVE [...] volume (Bld) [Entitic vol] 10.7 fL 9.5-13.5 [facility] Platelets Auto (Bld) [#/Vol] on 12-09-2023 Platelets (Bld) [#/Vol] 294 10 3/uL 150-450 [facility] RBC Auto (Bld) [#/Vol]on RBC (Bld) [#/Vol] 4.76 10 6/uL 4.70-6.10 [facility] Serum or plasma albumin/glob ulin mass ratioon 12-09-2023 Albumin/Globulin [Mass ratio] 0.8 {ratio} [facility] Serum or plasma anion gap de terminationon 12-09-2023 Anion gap [Moles/Vol] 18.1 mmol/L [facility] Outside Operativeon 11-28-19 24 Outside Operative [id number]#1.00TIFF Normal [facility] Physician Orderon 11-28-2023 Physician Order [id number]#1.00TIFF Normal [facility] Basophils Auto (Bld) [#/Vol] on 11-26-2023 Basophils (Bld) [#/Vol] 0.1 10 3/uL 0.0-0.1 [facility] Basophils/100 WBC Auto (Bld) on 11-26-2023 Basophils/100 WBC (Bld) 1.1 % 0.2-2.0 [facility] Eosinophils/100 WBC Auto (Bl d)on 11-26-2023 Eosinophils/100 WBC (Bld) 3.5 % 0.9-7.0 [facility] Erythrocyte distribution wid th Auto (RBC) [Ratio]on 11-26-2023 Erythrocyte distribution width (RBC) [Ratio] 20.0 % High 11.0-15.0 [facility] Estimated glomerular filtrat ion rate (GFR) non- Americanon 11-26-2023 GFR/1.73 sq M.predicted among non-blacks MDRD (S/P/Bld) [Vol rate/Area] 41 mL/min/{1.73_m2} Low >=60 [facility] Globulin Calc (S) [Mass/Vol] on 11-26-2023 Globulin (S) [Mass/Vol] 4.2 g/dL [facility] Hematocrit Auto (Bld) [Volum e fraction]on 11-26-2023 Hematocrit (Bld) [Volume fraction] 33.1 % Low 42.0-54.0 [facility] Hemoglobin [Mass/volume] in Bloodon 11-26-2023 Hemoglobin (Bld) [Mass/Vol] 9.8 g/dL Low 14.0-18.0 [facility] Laboratory - Chemistry and C hemistry - challengeon 11-26-2023 Albumin [Mass/Vol] 3.2 g/dL Low 3.4-5.0 [facility] ALP [Catalytic activity/Vol] 143 U/L High 46-116 [facility] ALT [Catalytic activity/Vol] 16 U/L 16-63 [facility] AST [Catalytic activity/Vol] 14 U/L Low 15-37 [facility] Bilirubin [Mass/Vol] 0.5 mg/dL 0.2-1.0 [facility] Calcium [Mass/Vol] 9.1 mg/dL 8.5-10.1 [facility] Chloride [Moles/Vol] 101 mmol/L 98-107 [facility] CO2 [Moles/Vol] 24.2 mmol/L 21.0-32.0 [facility] Creatinine [Mass/Vol] 1.72 mg/dL High 0.70-1.30 [facility] GFR/1.73 sq M.predicted MDRD (S/P/Bld) [Vol rate/Area] 50 mL/min/{1.73_m2} Low >=60 [facility] Glucose [Mass/Vol] 132 mg/dL High 74-106 [facility] Lactate [Moles/Vol] 3.6 mmol/L High 0.4-2.0 [facility] Comment on above: RESULTS CALLED TO DR CROOK/YASMIN Potassium [Moles/Vol] 3.7 mmol/L 3.5-5.1 [facility] Protein [Mass/Vol] 7.4 g/dL 6.4-8.2 [facility] Sodium [Moles/Vol] 138 mmol/L 136-145 [facility] Urea nitrogen [Mass/Vol] 26.0 mg/dL High 7.0-18.0 [facility] Urea nitrogen/Creatinine [Mass ratio] 15.1 mg/mg [facility] Laboratory - Hematology and Cell countson 11-26-2023 ESR (Bld) [Velocity] 96 mm/h High <=20 [facility] Immature granulocytes/100 WBC (Bld) 0.4 % 0.0-0.5 [facility] Leukocytes [#/volume] correc jorge for nucleated erythrocytes in Blood by Automated counon 11-26-2023 WBC corrected for nucl RBC Auto (Bld) [#/Vol] 9.1 10 3/uL 4.0-11.0 [facility] Lymphocytes Auto (Bld) [#/Vo l]on 11-26-2023 Lymphocytes (Bld) [#/Vol] 2.1 10 3/uL 1.2-3.8 [facility] Lymphocytes/100 WBC Auto (Bl d)on 11-26-2023 Lymphocytes/100 WBC (Bld) 23.4 % 20.5-60.0 [facility] MCH Auto (RBC) [Entitic mass ]on 11-26-2023 MCH (RBC) [Entitic mass] 24.8 pg Low 25.9-34.0 [facility] MCHC Auto (RBC) [Mass/Vol]on 11-26-2023 MCHC (RBC) [Mass/Vol] 29.6 g/dL Low 29.9-35.2 [facility] MCV Auto (RBC) [Entitic vol] on 11-26-2023 MCV (RBC) [Entitic vol] 83.8 fL 80.0-94.0 [facility] Monocytes Auto (Bld) [#/Vol] on 11-26-2023 Monocytes (Bld) [#/Vol] 0.8 10 3/uL 0.3-0.8 [facility] Monocytes/100 WBC Auto (Bld) on 11-26-2023 Monocytes/100 WBC (Bld) 8.5 % 1.7-12.0 [facility] Neutrophils Auto (Bld) [#/Vo l]on 11-26-2023 Neutrophils (Bld) [#/Vol] 5.7 10 3/uL 1.4-6.5 [facility] Neutrophils/100 WBC Auto (Bl d)on 11-26-2023 Neutrophils/100 WBC (Bld) 63.1 % 43.0-75.0 [facility] No Panel InformationOrdered By: HERNAN CROOK on 11-26-2023 Blood Culture 2 [facility] Blood Culture 1 [facility] No Panel Informationon 11-25 C-Reactive Protein, Quantitative <0.50 mg/dL <=0.50 [facility] Eosinophils # (Auto) 0.3 10 3/uL 0.0-0.7 [facility] Immature Granulocyte # (Auto) 0.04 10 3/uL High 0.00-0.03 [facility] Platelet mean volume Auto (B ld) [Entitic vol]on 11-26-2023 Platelet mean volume (Bld) [Entitic vol] 10.4 fL 9.5-13.5 [facility] Platelets Auto (Bld) [#/Vol] on 11-26-2023 Platelets (Bld) [#/Vol] 371 10 3/uL 150-450 [facility] RBC Auto (Bld) [#/Vol]on RBC (Bld) [#/Vol] 3.95 10 6/uL Low 4.70-6.10 [facility] Serum or plasma albumin/glob ulin mass ratioon 11-26-2023 Albumin/Globulin [Mass ratio] 0.8 {ratio} [facility] Serum or plasma anion gap de terminationon 11-26-2023 Anion gap [Moles/Vol] 16.5 mmol/L [facility] Progress Note-Physicianon Progress Note-Physician [id number]#[id number] Normal [place] [facility] Basophils Auto (Bld) [#/Vol] on 11-15-2023 Basophils (Bld) [#/Vol] 0.1 10 3/uL 0.0-0.1 [facility] Basophils/100 WBC Auto (Bld) on 11-15-2023 Basophils/100 WBC (Bld) 0.8 % 0.2-2.0 [facility] Eosinophils/100 WBC Auto (Bl d)on 11-15-2023 Eosinophils/100 WBC (Bld) 5.9 % 0.9-7.0 [facility] Erythrocyte distribution wid th Auto (RBC) [Ratio]on 11-15-2023 Erythrocyte distribution width (RBC) [Ratio] 20.6 % High 11.0-15.0 [facility] Estimated glomerular filtrat ion rate (GFR) non- Americanon 11-15-2023 GFR/1.73 sq M.predicted among non-blacks MDRD (S/P/Bld) [Vol rate/Area] 44 mL/min/{1.73_m2} Low >=60 [facility] Globulin Calc (S) [Mass/Vol] on 11-15-2023 Globulin (S) [Mass/Vol] 4.7 g/dL [facility] Hematocrit Auto (Bld) [Volum e fraction]on 11-15-2023 Hematocrit (Bld) [Volume fraction] 27.6 % Low 42.0-54.0 [facility] Hemoglobin [Mass/volume] in Bloodon 11-15-2023 Hemoglobin (Bld) [Mass/Vol] 8.5 g/dL Low 14.0-18.0 [facility] Laboratory - Chemistry and C hemistry - challengeon 11-15-2023 Albumin [Mass/Vol] 2.4 g/dL Low 3.4-5.0 [facility] ALP [Catalytic activity/Vol] 194 U/L High 46-116 [facility] ALT [Catalytic activity/Vol] 22 U/L 16-63 [facility] AST [Catalytic activity/Vol] 25 U/L 15-37 [facility] Bilirubin [Mass/Vol] 0.9 mg/dL 0.2-1.0 [facility] Calcium [Mass/Vol] 8.9 mg/dL 8.5-10.1 [facility] Chloride [Moles/Vol] 97 mmol/L Low 98-107 [facility] CO2 [Moles/Vol] 26.6 mmol/L 21.0-32.0 [facility] Creatinine [Mass/Vol] 1.63 mg/dL High 0.70-1.30 [facility] GFR/1.73 sq M.predicted MDRD (S/P/Bld) [Vol rate/Area] 53 mL/min/{1.73_m2} Low >=60 [facility] Glucose [Mass/Vol] 226 mg/dL High 74-106 [facility] Lactate [Moles/Vol] 1.4 mmol/L 0.4-2.0 [facility] Potassium [Moles/Vol] 4.1 mmol/L 3.5-5.1 [facility] Protein [Mass/Vol] 7.1 g/dL 6.4-8.2 [facility] Sodium [Moles/Vol] 135 mmol/L Low 136-145 [facility] Urea nitrogen [Mass/Vol] 24.0 mg/dL High 7.0-18.0 [facility] Urea nitrogen/Creatinine [Mass ratio] 14.7 mg/mg [facility] Laboratory - Hematology and Cell countson 11-15-2023 Immature granulocytes/100 WBC (Bld) 0.6 % High 0.0-0.5 [facility] Leukocytes [#/volume] correc jorge for nucleated erythrocytes in Blood by Automated counon 11-15-2023 WBC corrected for nucl RBC Auto (Bld) [#/Vol] 9.5 10 3/uL 4.0-11.0 [facility] Lymphocytes Auto (Bld) [#/Vo l]on 11-15-2023 Lymphocytes (Bld) [#/Vol] 1.3 10 3/uL 1.2-3.8 [facility] Lymphocytes/100 WBC Auto (Bl d)on 11-15-2023 Lymphocytes/100 WBC (Bld) 14.1 % Low 20.5-60.0 [facility] MCH Auto (RBC) [Entitic mass ]on 11-15-2023 MCH (RBC) [Entitic mass] 24.9 pg Low 25.9-34.0 [facility] MCHC Auto (RBC) [Mass/Vol]on 11-15-2023 MCHC (RBC) [Mass/Vol] 30.8 g/dL 29.9-35.2 [facility] MCV Auto (RBC) [Entitic vol] on 11-15-2023 MCV (RBC) [Entitic vol] 80.9 fL 80.0-94.0 [facility] Monocytes Auto (Bld) [#/Vol] on 11-15-2023 Monocytes (Bld) [#/Vol] 1.1 10 3/uL High 0.3-0.8 [facility] Monocytes/100 WBC Auto (Bld) on 11-15-2023 Monocytes/100 WBC (Bld) 11.9 % 1.7-12.0 [facility] Neutrophils Auto (Bld) [#/Vo l]on 11-15-2023 Neutrophils (Bld) [#/Vol] 6.4 10 3/uL 1.4-6.5 [facility] Neutrophils/100 WBC Auto (Bl d)on 11-15-2023 Neutrophils/100 WBC (Bld) 66.7 % 43.0-75.0 [facility] No Panel InformationOrdered By: Fely Marker on 11-15-2023 Blood Culture 2 [facility] Blood Culture 1 [facility] No Panel Informationon 11-14 Eosinophils # (Auto) 0.6 10 3/uL 0.0-0.7 [facility] Immature Granulocyte # (Auto) 0.06 10 3/uL High 0.00-0.03 [facility] Platelet mean volume Auto (B ld) [Entitic vol]on 11-15-2023 Platelet mean volume (Bld) [Entitic vol] 10.8 fL 9.5-13.5 [facility] Platelets Auto (Bld) [#/Vol] on 11-15-2023 Platelets (Bld) [#/Vol] 338 10 3/uL 150-450 [facility] RBC Auto (Bld) [#/Vol]on RBC (Bld) [#/Vol] 3.41 10 6/uL Low 4.70-6.10 [facility] Serum or plasma albumin/glob ulin mass ratioon 11-15-2023 Albumin/Globulin [Mass ratio] 0.5 {ratio} [facility] Serum or plasma anion gap de terminationon 11-15-2023 Anion gap [Moles/Vol] 15.5 mmol/L [facility] BASIC METABOLIC PANLon 11-13 Anion gap [Moles/Vol] 10 mmol/L Normal 5-15 [facility] Comment on above: Performed By: #### C [facility], , 2776-06 ####[facility] ([id number])[address], [place] [address] Calcium [Mass/Vol] 8.8 mg/dL Normal 8.5-10.5 [facility] Comment on above: Performed By: #### C ALLY [facility], , 2776-06 ####[facility] ([id number])[address], [address] [place] [address] Chloride [Moles/Vol] 99 mmol/L Normal 98-109 [facility] Comment on above: Performed By: #### C ALLY [facility], , 2776-06 ####[facility] ([id number])[address], [address] [place] [address] CO2 [Moles/Vol] 26 mmol/L Normal 22-32 [facility] Comment on above: Performed By: #### C KENDALL CANALES, , 2776-06 ####[facility] ([id number])[address], [address], [place] [address] Creatinine [Mass/Vol] 1.61 mg/dL High 0.60-1.[address] [facility] Comment on above: Result Comment: METH OD TRACEABLE TO IDMS STANDARD Performed By: #### C KENDALL CANALES, , 2776-06 ####[facility] ([id number])[address] [address] GFR/1.73 sq M.predicted among non-blacks MDRD (S/P/Bld) [Vol rate/Area] 49 mL/min/{1.73_m2} Low >59 [facility] Comment on above: Result Comment: Reported eGFR is based on the CKD-EPI 2020 equation that does not use a race coefficient. Performed By: #### C KENDALL CANALES, , 2776-06 ####[facility] ([id number])[address] [address], [place] [address] Glucose [Mass/Vol] 184 mg/dL High 65-99 [facility] Comment on above: Performed By: #### KENDALL AHUJA, , 2776-06 ####[facility] ([id number])[address] [address], [place] [address] Potassium [Moles/Vol] 4.0 mmol/L Normal 3.5-5.[address] [facility] Comment on above: Performed By: #### KENADLL AHUJA, , 2776-06 ####[facility] ([id number])[address] [address] [place] [address] Sodium [Moles/Vol] 135 mmol/L Normal 134-146 [facility] Comment on above: Performed By: #### C ALLY, [facility], , 2776-06 ####[facility] ([id number])[address] [address] [place] [address] Urea nitrogen [Mass/Vol] 23 mg/dL Normal 5-23 [facility] Comment on above: Performed By: #### C ALLY, [facility], , 2776-06 ####[facility] ([id number])[address] [address] [place] [address] COMPLETE BLOOD COUNTon 11-13 Erythrocyte distribution width (RBC) [Ratio] 22.8 % High 11.5-15.0 [facility] Comment on above: Performed By: #### C ALLY, [facility], , 2776-06 ####[facility] ([id number])[address] [address] Hematocrit (Bld) [Volume fraction] 25.1 % Low 39-49 [facility] Comment on above: Performed By: #### C ALLY, [facility], , 2776-06 ####[facility] ([id number])[address] [address] [place] [address] Hemoglobin (Bld) [Mass/Vol] 8.1 g/dL Low 13.0-17.0 [facility] Comment on above: Performed By: #### Snehal CANALES, [facility], , 2776-06 ####[facility] ([id number])[address] [address] [place] [address] MCH (RBC) [Entitic mass] 25.1 pg Low 27-34 [facility] Comment on above: Performed By: #### C BC, BMP, , 2776-06 ####[facility] ([id number])[address] [address] [place] [address] MCHC (RBC) [Mass/Vol] 32.4 g/dL Normal 32-[address] [facility] Comment on above: Performed By: #### C ALLY, BMP, , 2776-06 ####[facility] ([id number])[address], [address], [place] [address] MCV (RBC) [Entitic vol] 77 fL Low 80-100 [facility] Comment on above: Performed By: #### Snehal CANALES, BMP, , 2776-06 ####[facility] ([id number])[address], [address], [place] [address] Platelet mean volume (Bld) [Entitic vol] 8.8 fL Normal 7-12 [facility] Comment on above: Performed By: #### Snehal CANALES, BMP, , 2776-06 ####[facility] ([id number])[address], [address], [place] [address] Platelets (Bld) [#/Vol] 232 10*3/uL Normal 150-450 [facility] Comment on above: Performed By: #### Snehal CANALES, BMP, , 2776-06 ####[facility] ([id number])[address], [address], [place] [address] RBC COUNT 3.25 X10E12/L Low 4.10-5.70 [facility] Comment on above: Performed By: #### Snehal CANALES, BMP, , 2776-06 ####[facility] ([id number])[address], [address], [place] [address] WBC (Bld) [#/Vol] 8.4 10*3/uL Normal 4.0-11.0 [facility] Comment on above: Performed By: #### Snehal CANALES, BMP, , 2776-06 ####[facility] ([id number])[address], [address], [place] [address] Glucose Glucometer (BldC) [M ass/Vol]on 11-14-2023 Glucose [Mass/Vol] 173 mg/dL High 65-99 [facility] Glucose [Mass/Vol] 279 mg/dL High 65-99 [facility] Glucose [Mass/Vol] 249 mg/dL High 65-99 [facility] MAGNESIUMon 11-14-2023 Magnesium [Mass/Vol] 2.1 mg/dL Normal 1.8-2.6 [facility] Comment on above: Performed By: #### 1 9123-9 ####[facility] ([id number])[address], [address] [place] [address] Magnesium [Mass/Vol] mg/dL Critically low 1.8-2.6 [facility] Comment on above: Performed By: #### 1 9123-9 ####[facility] ([id number])[address] [address] [place] [address] Magnesium [Mass/Vol] 1.7 mg/dL Low 1.8-2.6 [facility] Comment on above: Performed By: #### C KENDALL CANALES, , 1 ####[facility] ([id number])[address], [address] [place] [address] PHOSPHORUSon 11-14-2023 Phosphate [Mass/Vol] 3.6 mg/dL Normal 2.4-4.9 [facility] Comment on above: Performed By: #### KENDALL AHUJA, , 1 ####[facility] ([id number])[address], [address] [place] [address] BASIC METABOLIC PANLon 11-12 Anion gap [Moles/Vol] 10 mmol/L Normal 5-[address] [facility] Comment on above: Performed By: #### KENDALL AHUJA, , 2776-06 ####[facility] ([id number])[address], [address], [place] [address] Calcium [Mass/Vol] 8.9 mg/dL Normal 8.5-10.5 [facility] Comment on above: Performed By: #### C ALLY, KENDALL, , 2776-06 ####[facility] ([id number])[address] [address] [place] [address] Chloride [Moles/Vol] 98 mmol/L Normal 98-109 [facility] Comment on above: Performed By: #### Snehal CANALES, KENDALL, , 2776-06 ####[facility] ([id number])[address] [address], [place] [address] CO2 [Moles/Vol] 27 mmol/L Normal 22-32 [facility] Comment on above: Performed By: #### Snehal CANALES, KENDALL, , 2776-06 ####[facility] ([id number])[address] [address] [place] [address] Creatinine [Mass/Vol] 1.47 mg/dL High 0.60-1.[address] [facility] Comment on above: Result Comment: METH OD TRACEABLE TO IDMS STANDARD Performed By: #### Snehal CANALES, KENDALL, , 2776-06 ####[facility] ([id number])[address] [address] [place] [address] GFR/1.73 sq M.predicted among non-blacks MDRD (S/P/Bld) [Vol rate/Area] 55 mL/min/{1.73_m2} Low >59 [facility] Comment on above: Result Comment: Reported eGFR is based on the CKD-EPI 2020 equation that does not use a race coefficient. Performed By: #### Snehal CANALES, KENDALL, , 2776-06 ####[facility] ([id number])[address] [address], [place] [address] Glucose [Mass/Vol] 164 mg/dL High 65-99 [facility] Comment on above: Performed By: #### C ALLY, [facility], , 2776-06 ####[facility] ([id number])[address], [address], [place] [address] Potassium [Moles/Vol] 3.8 mmol/L Normal 3.5-5.[address] [facility] Comment on above: Performed By: #### C ALLY, [facility], , 2776-06 ####[facility] ([id number])[address], [address], [place] [address] Sodium [Moles/Vol] 135 mmol/L Normal 134-146 [facility] Comment on above: Performed By: #### Snehal CANALES, [facility], , 2776-06 ####[facility] ([id number])[address], [address], [place] [address] Urea nitrogen [Mass/Vol] 26 mg/dL High 5-23 [facility] Comment on above: Performed By: #### Snehal CANALES, [facility], , 2776-06 ####[facility] ([id number])[address] [address] COMPLETE BLOOD COUNTon 11-12 Erythrocyte distribution width (RBC) [Ratio] 23.2 % High 11.5-15.0 [facility] Comment on above: Performed By: #### Snehal CANALES, KENDALL, , 2776-06 ####[facility] ([id number])[address] [address] Hematocrit (Bld) [Volume fraction] 24.7 % Low 39-49 [facility] Comment on above: Performed By: #### Snehal CANALES, BMP, , 2776-06 ####[facility] ([id number])[address], [place] [address] Hemoglobin (Bld) [Mass/Vol] 8.2 g/dL Low 13.0-17.0 [facility] Comment on above: Performed By: #### Snehal CANALES, BMP, , 2776-06 ####[facility] ([id number])[address], [address] [place] [address] MCH (RBC) [Entitic mass] 25.7 pg Low 27-34 [facility] Comment on above: Performed By: #### Snehal CANALES, KENDALL, , 2776-06 ####[facility] ([id number])[address], [address], [place] [address] MCHC (RBC) [Mass/Vol] 33.4 g/dL Normal 32-[address] [facility] Comment on above: Performed By: #### Snehal CANALES, KENDALL, , 2776-06 ####[facility] ([id number])[address], [address] [place] [address] MCV (RBC) [Entitic vol] 77 fL Low 80-100 [facility] Comment on above: Performed By: #### Snehal CANALES, KENDALL, , 2776-06 ####[facility] ([id number])[address], [address], [place] [address] Platelet mean volume (Bld) [Entitic vol] 8.8 fL Normal 7-12 [facility] Comment on above: Performed By: #### Snehal CANALES, KENDALL, , 2776-06 ####[facility] ([id number])[address], [address], [place] [address] Platelets (Bld) [#/Vol] 207 10*3/uL Normal 150-450 [facility] Comment on above: Performed By: #### KENDALL AHUJA, , 2776-06 ####[facility] ([id number])[address], [address], [place] [address] RBC COUNT 3.21 X10E12/L Low 4.10-5.70 [facility] Comment on above: Performed By: #### C KENDALL CANALES, , 2776-06 ####[facility] ([id number])[address], [address] [place] [address] WBC (Bld) [#/Vol] 8.1 10*3/uL Normal 4.0-11.0 [facility] Comment on above: Performed By: #### KENDALL AHUJA, , 2776-06 ####[facility] ([id number])[address], [address] [place] [address] Glucose Glucometer (BldC) [M ass/Vol]on 11-13-2023 Glucose [Mass/Vol] 230 mg/dL High 65-99 [facility] Glucose [Mass/Vol] 225 mg/dL High 65-99 [facility] Glucose [Mass/Vol] 331 mg/dL High 65-99 [facility] Glucose [Mass/Vol] 190 mg/dL High 65-99 [facility] MAGNESIUMon 11-13-2023 Magnesium [Mass/Vol] 2.1 mg/dL Normal 1.8-2.6 [facility] Comment on above: Performed By: #### C KENDALL CANALES, , 2776-06 ####[facility] ([id number])[address], [address] [place] [address] PHOSPHORUSon 11-13-2023 Phosphate [Mass/Vol] 3.8 mg/dL Normal 2.4-4.9 [facility] Comment on above: Performed By: #### KENDALL AHUJA, , 2776-06 ####[facility] ([id number])[address], [address] [place] [address] BASIC METABOLIC PANLon 11-11 Anion gap [Moles/Vol] 11 mmol/L Normal 5-[address] [facility] Comment on above: Performed By: #### C ALLY, BMP #### [facility] ([id number]) [address], [address] [place] [address] Calcium [Mass/Vol] 9.0 mg/dL Normal 8.5-10.5 [facility] Comment on above: Performed By: #### C ALLY, BMP #### [facility] ([id number]) [address], [address] [place] [address] Chloride [Moles/Vol] 98 mmol/L Normal 98-109 [facility] Comment on above: Performed By: #### Snehal CANALES, BMP #### [facility] ([id number]) [address], [address] [place] [address] CO2 [Moles/Vol] 25 mmol/L Normal 22-32 [facility] Comment on above: Performed By: #### Snehal CANALES, BMP #### [facility] ([id number]) [address], [address] [place] [address] Creatinine [Mass/Vol] 1.40 mg/dL High 0.60-1.[address] [facility] Comment on above: Result Comment: METH OD TRACEABLE TO IDMS STANDARD Performed By: #### C ALLY, BMP #### [facility] ([id number]) [address], [address] [place] [address] GFR/1.73 sq M.predicted among non-blacks MDRD (S/P/Bld) [Vol rate/Area] 58 mL/min/{1.73_m2} Low >59 [facility] Comment on above: Result Comment: Reported eGFR is based on the CKD-EPI 2020 equation that does not use a race coefficient. Performed By: #### C ALLY, BMP #### [facility] ([id number]) [address], [address] [place] [address] Glucose [Mass/Vol] 194 mg/dL High 65-99 [facility] Comment on above: Performed By: #### C ALLY, BMP #### [facility] ([id number]) [address], [address] [place] [address] Potassium [Moles/Vol] 4.0 mmol/L Normal 3.5-5.[address] [facility] Comment on above: Performed By: #### C ALLY, BMP #### [facility] ([id number]) [address], [address] [place] [address] Sodium [Moles/Vol] 134 mmol/L Normal 134-146 [facility] Comment on above: Performed By: #### C ALLY, BMP #### [facility] ([id number]) [address], [address] [place] [address] Urea nitrogen [Mass/Vol] 23 mg/dL Normal 5-23 [facility] Comment on above: Performed By: #### C ALLY, BMP #### [facility] ([id number]) [address], [address] [place] [address] COMPLETE BLOOD COUNTon 11-11 Erythrocyte distribution width (RBC) [Ratio] 24.1 % High 11.5-15.0 [facility] Comment on above: Performed By: #### C ALLY, BMP #### [facility] ([id number]) [address], [address] [place] [address] Hematocrit (Bld) [Volume fraction] 25.8 % Low 39-49 [facility] Comment on above: Performed By: #### C ALLY, BMP #### [facility] ([id number]) [address], [address] [place] [address] Hemoglobin (Bld) [Mass/Vol] 8.6 g/dL Low 13.0-17.0 [facility] Comment on above: Performed By: #### C ALLY, BMP #### [facility] ([id number]) [address], [address] [place] [address] MCH (RBC) [Entitic mass] 25.7 pg Low 27-34 [facility] Comment on above: Performed By: #### C ALLY, BMP #### [facility] ([id number]) [address], [address] [place] [address] MCHC (RBC) [Mass/Vol] 33.5 g/dL Normal 32-[address] [facility] Comment on above: Performed By: #### C ALLY, BMP #### [facility] ([id number]) [address], [address] [place] [address] MCV (RBC) [Entitic vol] 77 fL Low 80-100 [facility] Comment on above: Performed By: #### C ALLY, BMP #### [facility] ([id number]) [address], [address] [place] [address] Platelet mean volume (Bld) [Entitic vol] 9.2 fL Normal 7-12 [facility] Comment on above: Performed By: #### C ALLY, BMP #### [facility] ([id number]) [address], [address] [place] [address] Platelets (Bld) [#/Vol] 185 10*3/uL Normal 150-450 [facility] Comment on above: Performed By: #### C ALLY, BMP #### [facility] ([id number]) [address], [address] [place] [address] RBC COUNT 3.37 X10E12/L Low 4.10-5.70 [facility] Comment on above: Performed By: #### C ALLY, BMP #### [facility] ([id number]) [address], [address] [place] [address] WBC (Bld) [#/Vol] 10.0 10*3/uL Normal 4.0-11.0 [facility] Comment on above: Performed By: #### Snehal CANALES, BMP #### [facility] ([id number]) [address] [place] [address] Glucose Glucometer (BldC) [M ass/Vol]on 11-12-2023 Glucose [Mass/Vol] 230 mg/dL High 65-99 [facility] Glucose [Mass/Vol] 280 mg/dL High 65-99 [facility] Glucose [Mass/Vol] 268 mg/dL High 65-99 [facility] Glucose [Mass/Vol] 220 mg/dL High 65-99 [facility] Glucose [Mass/Vol] 205 mg/dL High 65-99 [facility] MAGNESIUMon 11-12-2023 Magnesium [Mass/Vol] 1.8 mg/dL Normal 1.8-2.6 [facility] Comment on above: Performed By: #### Snehal CANALES, BMP #### [facility] ([id number]) [address], [address] [place] [address] PHOSPHORUSon 11-12-2023 Phosphate [Mass/Vol] 3.8 mg/dL Normal 2.4-4.9 [facility] Comment on above: Performed By: #### Snehal CANALES, BMP #### [facility] ([id number]) [address], [address] [place] [address] BASIC METABOLIC PANLon 11-10 Anion gap [Moles/Vol] 8 mmol/L Normal 5-[address] [facility] Comment on above: Performed By: #### Snehal CANALES, BMP #### [facility] ([id number]) [address], [address] [place] [address] Calcium [Mass/Vol] 8.7 mg/dL Normal 8.5-10.5 [facility] Comment on above: Performed By: #### Snehal CANALES, BMP #### [facility] ([id number]) [address], [address] [place] [address] Chloride [Moles/Vol] 99 mmol/L Normal 98-109 [facility] Comment on above: Performed By: #### C ALLY, BMP #### [facility] ([id number]) [address], [address] [place] [address] CO2 [Moles/Vol] 26 mmol/L Normal 22-32 [facility] Comment on above: Performed By: #### C ALLY, BMP #### [facility] ([id number]) [address] [address] [place] [address] Creatinine [Mass/Vol] 1.45 mg/dL High 0.60-1.[address] [facility] Comment on above: Result Comment: METH OD TRACEABLE TO IDMS STANDARD Performed By: #### C ALLY, BMP #### [facility] ([id number]) [address] [address] GFR/1.73 sq M.predicted among non-blacks MDRD (S/P/Bld) [Vol rate/Area] 56 mL/min/{1.73_m2} Low >59 [facility] Comment on above: Result Comment: Reported eGFR is based on the CKD-EPI 2020 equation that does not use a race coefficient. Performed By: #### C ALLY, BMP #### [facility] ([id number]) [address], [address] [place] [address] Glucose [Mass/Vol] 153 mg/dL High 65-99 [facility] Comment on above: Performed By: #### C ALLY, BMP #### [facility] ([id number]) [address] [address] [place] [address] Potassium [Moles/Vol] 3.9 mmol/L Normal 3.5-5.[address] [facility] Comment on above: Performed By: #### Snehal CANALES, BMP #### [facility] ([id number]) [address], [address] [place] [address] Sodium [Moles/Vol] 133 mmol/L Low 134-146 [facility] Comment on above: Performed By: #### C ALLY, BMP #### [facility] ([id number]) [address], [address] [place] [address] Urea nitrogen [Mass/Vol] 27 mg/dL High 5-23 [facility] Comment on above: Performed By: #### C ALLY, BMP #### [facility] ([id number]) [address], [address] [place] [address] COMPLETE BLOOD COUNTon 11-10 Erythrocyte distribution width (RBC) [Ratio] 24.2 % High 11.5-15.0 [facility] Comment on above: Performed By: #### C ALLY, BMP #### [facility] ([id number]) [address], [address] [place] [address] Hematocrit (Bld) [Volume fraction] 25.1 % Low 39-49 [facility] Comment on above: Performed By: #### Snehal CANALES, BMP #### [facility] ([id number]) [address], [address] [place] [address] Hemoglobin (Bld) [Mass/Vol] 8.2 g/dL Low 13.0-17.0 [facility] Comment on above: Performed By: #### C ALLY, BMP #### [facility] ([id number]) [address], [address] [place] [address] MCH (RBC) [Entitic mass] 25.5 pg Low 27-34 [facility] Comment on above: Performed By: #### C ALLY, BMP #### [facility] ([id number]) [address], [address] [place] [address] MCHC (RBC) [Mass/Vol] 32.7 g/dL Normal 32-[address] [facility] Comment on above: Performed By: #### C ALLY, BMP #### [facility] ([id number]) [address], [address] [place] [address] MCV (RBC) [Entitic vol] 78 fL Low 80-100 [facility] Comment on above: Performed By: #### C ALLY, BMP #### [facility] ([id number]) [address], [address] [place] [address] Platelet mean volume (Bld) [Entitic vol] 9.0 fL Normal 7-12 [facility] Comment on above: Performed By: #### C ALLY, BMP #### [facility] ([id number]) [address], [address] [place] [address] Platelets (Bld) [#/Vol] 152 10*3/uL Normal 150-450 [facility] Comment on above: Performed By: #### Snehal CANALES, BMP #### [facility] ([id number]) [address], [address] [place] [address] RBC COUNT 3.22 X10E12/L Low 4.10-5.70 [facility] Comment on above: Performed By: #### Snehal CANALES, BMP #### [facility] ([id number]) [address], [address] [place] [address] WBC (Bld) [#/Vol] 9.8 10*3/uL Normal 4.0-11.0 [facility] Comment on above: Performed By: #### Snehal CANALES, BMP #### [facility] ([id number]) [address], [address] [place] [address] Glucose Glucometer (BldC) [M ass/Vol]on 11-11-2023 Glucose [Mass/Vol] 184 mg/dL High 65-99 [facility] Glucose [Mass/Vol] 179 mg/dL High 65-99 [facility] Glucose [Mass/Vol] 222 mg/dL High 65-99 [facility] Glucose [Mass/Vol] 303 mg/dL High 65-99 [facility] MAGNESIUMon 11-11-2023 Magnesium [Mass/Vol] 2.4 mg/dL Normal 1.8-2.6 [facility] Comment on above: Performed By: #### Snehal CANALES BMP #### [facility] ([id number]) [address], [address] [place] [address] Magnesium [Mass/Vol] 1.9 mg/dL Normal 1.8-2.6 [facility] Comment on above: Performed By: #### Snehal CANALES BMP #### [facility] ([id number]) [address], [address] [place] [address] PHOSPHORUSon 11-11-2023 Phosphate [Mass/Vol] 3.2 mg/dL Normal 2.4-4.9 [facility] Comment on above: Performed By: #### Snehal CANALES BMP #### [facility] ([id number]) [address], [address] [place] [address] BASIC METABOLIC PANLon 11-09 Anion gap [Moles/Vol] 6 mmol/L Normal 5-[address] [facility] Comment on above: Performed By: #### KENDALL AHUJA, , 2776-06 ####[facility] ([id number])[address], [address], [place] [address] Calcium [Mass/Vol] 8.5 mg/dL Normal 8.5-10.5 [facility] Comment on above: Performed By: #### KENDALL AHUJA, , 2776-06 ####[facility] ([id number])[address], [address], [place] [address] Chloride [Moles/Vol] 102 mmol/L Normal 98-109 [facility] Comment on above: Performed By: #### KENDALL AHUJA, , 2777-1 ####[facility] ([id number])[address] [address] [place] [address] CO2 [Moles/Vol] 26 mmol/L Normal 22-32 [facility] Comment on above: Performed By: #### C KENDALL CANALES, , 2776-06 ####[facility] ([id number])[address] [address] [place] [address] Creatinine [Mass/Vol] 1.59 mg/dL High 0.60-1.[address] [facility] Comment on above: Result Comment: METH OD TRACEABLE TO IDMS STANDARD Performed By: #### C ALLY [facility], , 2776-06 ####[facility] ([id number])[address] [address], [place] [address] GFR/1.73 sq M.predicted among non-blacks MDRD (S/P/Bld) [Vol rate/Area] 50 mL/min/{1.73_m2} Low >59 [facility] Comment on above: Result Comment: Reported eGFR is based on the CKD-EPI 2020 equation that does not use a race coefficient. Performed By: #### KENDALL AHUJA, , 2776-06 ####[facility] ([id number])[address] [address], [place] [address] Glucose [Mass/Vol] 145 mg/dL High 65-99 [facility] Comment on above: Performed By: #### KENDALL AHUJA, , 2776-06 ####[facility] ([id number])[address] [address] [place] [address] Potassium [Moles/Vol] 3.9 mmol/L Normal 3.5-5.[address] [facility] Comment on above: Performed By: #### KENDALL AHUJA, , 2776-06 ####[facility] ([id number])[address], [address] [place] [address] Sodium [Moles/Vol] 134 mmol/L Normal 134-146 [facility] Comment on above: Performed By: #### C ALLY, [facility], , 2776-06 ####[facility] ([id number])[address], [address] [place] [address] Urea nitrogen [Mass/Vol] 23 mg/dL Normal 5-23 [facility] Comment on above: Performed By: #### C ALLY, [facility], , 2776-06 ####[facility] ([id number])[address], [address] [address] COMPLETE BLOOD COUNTon 11-09 Erythrocyte distribution width (RBC) [Ratio] 24.9 % High 11.5-15.0 [facility] Comment on above: Performed By: #### Snehal CANALES, [facility], , 2776-06 ####[facility] ([id number])[address] [address] [place] [address] Hematocrit (Bld) [Volume fraction] 24.5 % Low 39-49 [facility] Comment on above: Performed By: #### Snehal CANALES, [facility], , 2776-06 ####[facility] ([id number])[address] [address] [place] [address] Hemoglobin (Bld) [Mass/Vol] 7.9 g/dL Low 13.0-17.0 [facility] Comment on above: Performed By: #### Snehal CANALES, BMP, , 2776-06 ####[facility] ([id number])[address] [address] MCH (RBC) [Entitic mass] 25.4 pg Low 27-34 [facility] Comment on above: Performed By: #### Snehal CANALES, BMP, , 2776-06 ####[facility] ([id number])[address], [place] [address] MCHC (RBC) [Mass/Vol] 32.4 g/dL Normal 32-[address] [facility] Comment on above: Performed By: #### Snehal CANALES, EKNDALL, , 2776-06 ####[facility] ([id number])[address], [place] [address] MCV (RBC) [Entitic vol] 78 fL Low 80-100 [facility] Comment on above: Performed By: #### Snehal CANALES, KENDALL, , 2776-06 ####[facility] ([id number])[address], [address], [place] [address] Platelet mean volume (Bld) [Entitic vol] 9.1 fL Normal 7-12 [facility] Comment on above: Performed By: #### Snehal CANALES, KENDALL, , 2776-06 ####[facility] ([id number])[address] [address] [place] [address] Platelets (Bld) [#/Vol] 142 10*3/uL Low 150-450 [facility] Comment on above: Performed By: #### KENDALL AHUJA, , 2776-06 ####[facility] ([id number])[address], [address], [place] [address] RBC COUNT 3.14 X10E12/L Low 4.10-5.70 [facility] Comment on above: Performed By: #### Snehal CANALES, BMP, , 2776-06 ####[facility] ([id number])[address], [address] [place] [address], [place] [address] WBC (Bld) [#/Vol] 9.7 10*3/uL Normal 4.0-11.0 [facility] Comment on above: Performed By: #### Snehal CANALES BMP, , 2776-06 ####[facility] ([id number])[address], [place] [address] Glucose Glucometer (BldC) [M ass/Vol]on 11-10-2023 Glucose [Mass/Vol] 168 mg/dL High 65-99 [facility] Glucose [Mass/Vol] 245 mg/dL High 65-99 [facility] Glucose [Mass/Vol] 155 mg/dL High 65-99 [facility] Glucose [Mass/Vol] 153 mg/dL High 65-99 [facility] MAGNESIUMon 11-10-2023 Magnesium [Mass/Vol] 2.2 mg/dL Normal 1.8-2.6 [facility] Comment on above: Performed By: #### Snehal CANALES, BMP #### [facility] ([id number]) [address], [address] [place] [address] Magnesium [Mass/Vol] 1.8 mg/dL Normal 1.8-2.6 [facility] Comment on above: Performed By: #### Snehal CANALES, KENDALL, , 2776-06 ####[facility] ([id number])[address], [address], [place] [address] PHOSPHORUSon 11-10-2023 Phosphate [Mass/Vol] 3.1 mg/dL Normal 2.4-4.9 [facility] Comment on above: Performed By: #### Snehal CANALES, KENDALL, , 1 ####[facility] ([id number])[address], [place] [address] BASIC METABOLIC PANLon 11-08 Anion gap [Moles/Vol] 9 mmol/L Normal 5-[address] [facility] Comment on above: Performed By: #### Snehal CANALES, 2639-3, BMP, 7-6, , 7-1 ####[facility] ([id number])[address] [place] [address] Calcium [Mass/Vol] 8.4 mg/dL Low 8.5-10.5 [facility] Comment on above: Performed By: #### C BC, 2639-3, BMP, 2156-6, , 2776-06 ####[facility] ([id number])[address] [address] [place] [address] Chloride [Moles/Vol] 104 mmol/L Normal 98-109 [facility] Comment on above: Performed By: #### C ALLY, 2639-3, BMP, 2156-6, , 2776-06 ####[facility] ([id number])[address] [address] CO2 [Moles/Vol] 25 mmol/L Normal 22-32 [facility] Comment on above: Performed By: #### C ALLY, 2639-3, BMP, 2156-11, , 2776-06 ####[facility] ([id number])[address] [address] Creatinine [Mass/Vol] 1.35 mg/dL High 0.60-1.[address] [facility] Comment on above: Result Comment: METH OD TRACEABLE TO IDMS STANDARD Performed By: #### C ALLY, 2639-3, BMP, 2156-11, , 2776-06 ####[facility] ([id number])[address] [address] GFR/1.73 sq M.predicted among non-blacks MDRD (S/P/Bld) [Vol rate/Area] 61 mL/min/{1.73_m2} Normal >59 [facility] Comment on above: Result Comment: Reported eGFR is based on the CKD-EPI 2020 equation that does not use a race coefficient. Performed By: #### C BC, 2639-3, BMP, 2156-11, , 2776-06 ####[facility] ([id number])[address], [place] [address] Glucose [Mass/Vol] 217 mg/dL High 65-99 [facility] Comment on above: Performed By: #### C ALLY, 2639-3, BMP, 2156-6, , 2776- ####[facility] ([id number])[address], [place] [address] Potassium [Moles/Vol] 4.2 mmol/L Normal 3.5-5.[address] [facility] Comment on above: Performed By: #### C ALLY, 2639-3, BMP, 2156-11, , 2776-06 ####[facility] ([id number])[address], [place] [address] Sodium [Moles/Vol] 138 mmol/L Normal 134-146 [facility] Comment on above: Performed By: #### C ALLY, 2639-3, BMP, 2156-, , 2776-06 ####[facility] ([id number])[address], [place] [address] Urea nitrogen [Mass/Vol] 23 mg/dL Normal 5-23 [facility] Comment on above: Performed By: #### Snehal CANALES, 2639-3, BMP, 2156-11, , 2776-06 ####[facility] ([id number])[address], [place] [address] CK [Catalytic activity/Vol]o n 11-09-2023 CPK 44 U/L Normal 24-195 [facility] Comment on above: Performed By: #### 2 157-6, 2639-3 ####[facility] ([id number])[address], [place] [address] CPK 30 U/L Normal 24-195 [facility] Comment on above: Performed By: #### C BC, 2639-3, BMP, 2156-6, , 1 ####[facility] ([id number])[address], [address] [place] [address] COMPLETE BLOOD COUNTon 11-08 Erythrocyte distribution width (RBC) [Ratio] 24.9 % High 11.5-15.0 [facility] Comment on above: Performed By: #### C BC, 2639-3, BMP, 2156-6, , 2776-06 ####[facility] ([id number])[address], [address] [place] [address] Hematocrit (Bld) [Volume fraction] 26.8 % Low 39-49 [facility] Comment on above: Performed By: #### Snehal BC, 2639-3, BMP, 2156-, , 2776-06 ####[facility] ([id number])[address], [place] [address] Hemoglobin (Bld) [Mass/Vol] 8.7 g/dL Low 13.0-17.0 [facility] Comment on above: Performed By: #### Snehal BC, 2639-3, BMP, 2156-, , 1 ####[facility] ([id number])[address] [address] [place] [address] MCH (RBC) [Entitic mass] 24.8 pg Low 27-34 [facility] Comment on above: Performed By: #### C BC, 2639-3, BMP, 2156-, , 1 ####[facility] ([id number])[address] [address] [place] [address] MCHC (RBC) [Mass/Vol] 32.6 g/dL Normal 32-[address] [facility] Comment on above: Performed By: #### C ALLY, 2639-3, BMP, 2156-, , 2776-06 ####[facility] ([id number])[address], [address] [place] [address] MCV (RBC) [Entitic vol] 76 fL Low 80-100 [facility] Comment on above: Performed By: #### Snehal CANALES, 2639-3, BMP, 2156-11, , 2776-06 ####[facility] ([id number])[address] [address] [place] [address] Platelet mean volume (Bld) [Entitic vol] 9.3 fL Normal 7-12 [facility] Comment on above: Performed By: #### Snehal CANALES, 9-3, BMP, 2156-, , 2776-06 ####[facility] ([id number])[address] [address] [place] [address] Platelets (Bld) [#/Vol] 184 10*3/uL Normal 150-450 [facility] Comment on above: Performed By: #### Snehal CANALES, 2639-3, BMP, 2156-11, , 2776-06 ####[facility] ([id number])[address] [address] [place] [address] RBC COUNT 3.53 X10E12/L Low 4.10-5.70 [facility] Comment on above: Performed By: #### C ALLY, 2639-3, BMP, 2156-, , 2776- ####[facility] ([id number])[address] [address] WBC (Bld) [#/Vol] 11.0 10*3/uL Normal 4.0-11.0 [facility] Comment on above: Performed By: #### Snehal CANALES, 2639-3, BMP, 2156-11, , 2776- ####[facility] ([id number])[address], [address] [place] [address] Glucose Glucometer (BldC) [M ass/Vol]on 11-09-2023 Glucose [Mass/Vol] 243 mg/dL High 65-99 [facility] Glucose [Mass/Vol] 184 mg/dL High 65-99 [facility] Glucose [Mass/Vol] 199 mg/dL High 65-99 [facility] Glucose [Mass/Vol] 218 mg/dL High 65-99 [facility] Heparin unfractionated Chrom ogenic method Qn (PPP)on 11-09-2023 ANTI XA UFH 0.15 IU/mL Low 0.30-0.70 [facility] Comment on above: Result Comment: Opti mal time for testing is 6 hrs post dosage This test is specific for monitoring patients on UFH, and is not recommended for use with other Anti-Xa medications. Performed By: #### 3 274-8 ####[facility] ([id number])[address] [place] [address] MAGNESIUMon 11-09-2023 Magnesium [Mass/Vol] 2.2 mg/dL Normal 1.8-2.6 [facility] Comment on above: Performed By: #### C BC, 2639-3, [facility], 2156-11, , 2776-06 ####[facility] ([id number])[address], [address] [place] [address] Myoglobin [Mass/Vol]on 11-08 SERUM MYOGLOBIN 97.7 ng/mL Normal 17.4-105.7 [facility] Comment on above: Performed By: #### 2 157-6, 2639-3 ####[facility] ([id number])[address], [address] [place] [address] SERUM MYOGLOBIN 51.7 ng/mL Normal 17.4-105.7 [facility] Comment on above: Performed By: #### C BC, 2639-3, BMP, 2156-11, , 2777-1 ####[facility] ([id number])[address], [place] [address] PHOSPHORUSon 11-09-2023 Phosphate [Mass/Vol] 4.4 mg/dL Normal 2.4-4.9 [facility] Comment on above: Performed By: #### C BC, 2639-3, BMP, 2156-11, , 2776-1 ####[facility] ([id number])[address], [place] [address] BASIC METABOLIC PANLon 11-07 Anion gap [Moles/Vol] 9 mmol/L Normal 5-[address] [facility] Comment on above: Performed By: #### P INR #### [facility] ([id number]) [address], [address] [place] [address] Calcium [Mass/Vol] 8.4 mg/dL Low 8.5-10.5 [facility] Comment on above: Performed By: #### P INR #### [facility] ([id number]) [address] [place] [address] Chloride [Moles/Vol] 106 mmol/L Normal 98-109 [facility] Comment on above: Performed By: #### P INR #### [facility] ([id number]) [address] [place] [address] CO2 [Moles/Vol] 24 mmol/L Normal 22-32 [facility] Comment on above: Performed By: #### P INR #### [facility] ([id number]) [address], [address] [place] [address] Creatinine [Mass/Vol] 1.30 mg/dL Normal 0.60-1.[address] [facility] Comment on above: Result Comment: METH OD TRACEABLE TO IDMS STANDARD Performed By: #### P INR #### [facility] ([id number]) [address], [address] [place] [address] GFR/1.73 sq M.predicted among non-blacks MDRD (S/P/Bld) [Vol rate/Area] 64 mL/min/{1.73_m2} Normal >59 [facility] Comment on above: Result Comment: Reported eGFR is based on the CKD-EPI 2020 equation that does not use a race coefficient. Performed By: #### P INR #### [facility] ([id number]) [address], [address] [place] [address] Glucose [Mass/Vol] 163 mg/dL High 65-99 [facility] Comment on above: Performed By: #### P INR #### [facility] ([id number]) [address], [address] [place] [address] Potassium [Moles/Vol] 4.1 mmol/L Normal 3.5-5.[address] [facility] Comment on above: Performed By: #### P INR #### [facility] ([id number]) [address], [address] [place] [address] Sodium [Moles/Vol] 139 mmol/L Normal 134-146 [facility] Comment on above: Performed By: #### P INR #### [facility] ([id number]) [address], [address] [place] [address] Urea nitrogen [Mass/Vol] 23 mg/dL Normal 5-23 [facility] Comment on above: Performed By: #### P INR #### [facility] ([id number]) [address], [address] [place] [address] Anion gap [Moles/Vol] 9 mmol/L Normal 5-[address] [facility] Comment on above: Performed By: #### C BC, BMP #### [facility] ([id number]) [address], [address] [place] [address] Calcium [Mass/Vol] 8.8 mg/dL Normal 8.5-10.5 [facility] Comment on above: Performed By: #### C ALLY, BMP #### [facility] ([id number]) [address], [address] [place] [address] Chloride [Moles/Vol] 104 mmol/L Normal 98-109 [facility] Comment on above: Performed By: #### C ALLY, BMP #### [facility] ([id number]) [address], [address] [place] [address] CO2 [Moles/Vol] 25 mmol/L Normal 22-32 [facility] Comment on above: Performed By: #### C ALLY, BMP #### [facility] ([id number]) [address], [address] [place] [address] Creatinine [Mass/Vol] 1.70 mg/dL High 0.60-1.[address] [facility] Comment on above: Result Comment: METH OD TRACEABLE TO IDMS STANDARD Performed By: #### C ALLY, BMP #### [facility] ([id number]) [address], [address] [place] [address] GFR/1.73 sq M.predicted among non-blacks MDRD (S/P/Bld) [Vol rate/Area] 46 mL/min/{1.73_m2} Low >59 [facility] Comment on above: Result Comment: Reported eGFR is based on the CKD-EPI 2020 equation that does not use a race coefficient. Performed By: #### C ALLY, BMP #### [facility] ([id number]) [address], [address] [place] [address] Glucose [Mass/Vol] 111 mg/dL High 65-99 [facility] Comment on above: Performed By: #### C ALLY, BMP #### [facility] ([id number]) [address], [address] [place] [address] Potassium [Moles/Vol] 3.8 mmol/L Normal 3.5-5.[address] [facility] Comment on above: Performed By: #### C BC, BMP #### [facility] ([id number]) [address], [address] [place] [address] Sodium [Moles/Vol] 138 mmol/L Normal 134-146 [facility] Comment on above: Performed By: #### C BC, BMP #### [facility] ([id number]) [address], [address] [place] [address] Urea nitrogen [Mass/Vol] 28 mg/dL High 5-23 [facility] Comment on above: Performed By: #### C BC, BMP #### [facility] ([id number]) [address], [address] [place] [address] CK [Catalytic activity/Vol]o n 11-08-2023 CPK 26 U/L Normal 24-195 [facility] Comment on above: Performed By: #### P INR #### [facility] ([id number]) [address], [address] [place] [address] COMPLETE BLOOD COUNTon 11-07 Erythrocyte distribution width (RBC) [Ratio] 24.8 % High 11.5-15.0 [facility] Comment on above: Performed By: #### P INR #### [facility] ([id number]) [address], [address] [place] [address] Hematocrit (Bld) [Volume fraction] 29.3 % Low 39-49 [facility] Comment on above: Performed By: #### P INR #### [facility] ([id number]) [address], [address] [place] [address] Hemoglobin (Bld) [Mass/Vol] 9.6 g/dL Low 13.0-17.0 [facility] Comment on above: Performed By: #### P INR #### [facility] ([id number]) [address], [address] [place] [address] MCH (RBC) [Entitic mass] 24.9 pg Low 27-34 [facility] Comment on above: Performed By: #### P INR #### [facility] ([id number]) [address], [address] [place] [address] MCHC (RBC) [Mass/Vol] 32.7 g/dL Normal 32-[address] [facility] Comment on above: Performed By: #### P INR #### [facility] ([id number]) [address], [address] [place] [address] MCV (RBC) [Entitic vol] 76 fL Low 80-100 [facility] Comment on above: Performed By: #### P INR #### [facility] ([id number]) [address], [address] [place] [address] Platelet mean volume (Bld) [Entitic vol] 8.7 fL Normal 7-12 [facility] Comment on above: Performed By: #### P INR #### [facility] ([id number]) [address], [address] [place] [address] Platelets (Bld) [#/Vol] 169 10*3/uL Normal 150-450 [facility] Comment on above: Performed By: #### P INR #### [facility] ([id number]) [address], [address] [place] [address] RBC COUNT 3.85 X10E12/L Low 4.10-5.70 [facility] Comment on above: Performed By: #### P INR #### [facility] ([id number]) [address], [address] [place] [address] WBC (Bld) [#/Vol] 13.5 10*3/uL High 4.0-11.0 [facility] Comment on above: Performed By: #### P INR #### [facility] ([id number]) [address], [address] [place] [address] Erythrocyte distribution width (RBC) [Ratio] 25.2 % High 11.5-15.0 [facility] Comment on above: Performed By: #### C BC, BMP #### [facility] ([id number]) [address], [address] [place] [address] Hematocrit (Bld) [Volume fraction] 33.0 % Low 39-49 [facility] Comment on above: Performed By: #### C BC, BMP #### [facility] ([id number]) [address], [address] [place] [address] Hemoglobin (Bld) [Mass/Vol] 10.8 g/dL Low 13.0-17.0 [facility] Comment on above: Performed By: #### C BC, BMP #### [facility] ([id number]) [address], [address] [place] [address] MCH (RBC) [Entitic mass] 25.0 pg Low 27-34 [facility] Comment on above: Performed By: #### C BC, BMP #### [facility] ([id number]) [address], [address] [place] [address] MCHC (RBC) [Mass/Vol] 32.8 g/dL Normal 32-[address] [facility] Comment on above: Performed By: #### C BC, BMP #### [facility] ([id number]) [address], [address] [place] [address] MCV (RBC) [Entitic vol] 76 fL Low 80-100 [facility] Comment on above: Performed By: #### C BC, BMP #### [facility] ([id number]) [address], [address] [place] [address] Platelet mean volume (Bld) [Entitic vol] 8.8 fL Normal 7-12 [facility] Comment on above: Performed By: #### Snehal CANALES, BMP #### [facility] ([id number]) [address], [facility] [address] [place] [address] Platelets (Bld) [#/Vol] 172 10*3/uL Normal 150-450 [facility] Comment on above: Performed By: #### Snehal CANALES, BMP #### [facility] ([id number]) [address], [address] [place] [address] RBC COUNT 4.33 X10E12/L Normal 4.10-5.70 [facility] Comment on above: Performed By: #### Snehal CANALES, BMP #### [facility] ([id number]) [address], [facility] [address] [place] [address] WBC (Bld) [#/Vol] 9.3 10*3/uL Normal 4.0-11.0 [facility] Comment on above: Performed By: #### Snehal CANALES, BMP #### [facility] ([id number]) [address], [facility] [address] [place] [address] Glucose Glucometer (dC) [M ass/Vol]on 11-08-2023 Glucose [Mass/Vol] 162 mg/dL High 65-99 [facility] Glucose [Mass/Vol] 96 mg/dL Normal 65-99 [facility] Glucose [Mass/Vol] 142 mg/dL High 65-99 [facility] Glucose [Mass/Vol] 114 mg/dL High 65-99 [facility] Lactate (P ekaterina) [Moles/Vol]o n 11-08-2023 LACTATE W/REFLEX 1.0 mmol/L Normal 0.4-2.0 [facility] Comment on above: Result Comment: Result did not trigger repeat Lactate, re-order if needed. Performed By: #### P INR #### [facility] ([id number]) [address], [address] [place] [address] MAGNESIUMon 11-08-2023 Magnesium [Mass/Vol] 1.7 mg/dL Low 1.8-2.6 [facility] Comment on above: Performed By: #### P INR #### [facility] ([id number]) [address], [address] [place] [address] Myoglobin [Mass/Vol]on 11-07 SERUM MYOGLOBIN 33.1 ng/mL Normal 17.4-105.7 [facility] Comment on above: Performed By: #### P INR #### [facility] ([id number]) [address], [address] [place] [address] PHOSPHORUSon 11-08-2023 Phosphate [Mass/Vol] 4.0 mg/dL Normal 2.4-4.9 [facility] Comment on above: Performed By: #### P INR #### [facility] ([id number]) [address], [address] [place] [address] PROTIME AND INRon 11-08-2023 INR Coag (PPP) [Relative time] 1.3 {INR} High 0.8-1.1 [facility] Comment on above: Performed By: #### P INR #### [facility] ([id number]) [address], [address] [place] [address] PT Coag (PPP) [Time] 14.7 s High 9.8-13.2 [facility] Comment on above: Performed By: #### P INR #### [facility] ([id number]) [address], [address] [place] [address] RAPID CARDIACon 11-08-2023 COURTNEY'S TEST Normal [facility] Comment on above: Performed By: #### A FAB5 #### [facility] ([id number]) [address] [place] [address] Base excess Calc (Bld) [Moles/Vol] 0.1 mmol/L Normal 0.0-2.0 [facility] Comment on above: Performed By: #### A FAB5 #### [facility] ([id number]) [address] [place] [address] Body temperature 98.6 [degF] Normal 37.0 [facility] Comment on above: Performed By: #### A FAB5 #### [facility] ([id number]) [address] [place] [address] Glucose [Mass/Vol] 117 mg/dL High 65-99 [facility] Comment on above: Performed By: #### A FAB5 #### [facility] ([id number]) [address] [place] [address] HCO3 (Bld) [Moles/Vol] 24.8 mmol/L Normal 22-26 [facility] Comment on above: Performed By: #### A FAB5 #### [facility] ([id number]) [address] [place] [address] Hematocrit (Bld) [Volume fraction] 31 % Low 39-49 [facility] Comment on above: Performed By: #### A FAB5 #### [facility] ([id number]) [address] [place] [address] Hemoglobin (Bld) [Mass/Vol] 10.2 g/dL Low 13.0-17.0 [facility] Comment on above: Performed By: #### A FAB5 #### [facility] ([id number]) [address] [place] [address] INSP. O2 CONC. 100 % Normal [facility] Comment on above: Performed By: #### A FAB5 #### [facility] ([id number]) [address] [place] [address] IONIZED CALCIUM 4.8 mg/dL Normal 4.5-5.3 [facility] Comment on above: Performed By: #### A FAB5 #### [facility] ([id number]) [address] [place] [address] Oxygen (Bld) [Partial pressure] 167 mm[Hg] High 80-100 [facility] Comment on above: Performed By: #### A FAB5 #### [facility] ([id number]) [address] [place] [address] Oxygen saturation in Blood 100.8 % Normal >90 [facility] Comment on above: Performed By: #### A FAB5 #### [facility] ([id number]) [address] [place] [address] PCO2 39.7 MMHG Normal 35-45 [facility] Comment on above: Performed By: #### A FAB5 #### [facility] ([id number]) [address] [place] [address] pH (Bld) 7.404 [pH] Normal 7.350-7.45 0 [facility] Comment on above: Performed By: #### A FAB5 #### [facility] ([id number]) [address] [place] [address] Potassium [Moles/Vol] 3.8 mmol/L Normal 3.5-5.[address] [facility] Comment on above: Performed By: #### A FAB5 #### [facility] ([id number]) [address] [place] [address] SAMPLE SITE KECIA Normal [facility] Comment on above: Performed By: #### A FAB5 #### [facility] ([id number]) [address] [place] [address] SAMPLE TYPE Arterial Normal [facility] Comment on above: Performed By: #### A FAB5 #### [facility] ([id number]) [address] [place] [address] RAPID CARDIAC W/ NAon 2023 COURTNEY'S TEST Normal [facility] Comment on above: Performed By: #### P INR #### [facility] ([id number]) [address] [place] [address] Base excess Calc (Bld) [Moles/Vol] 0.2 mmol/L Normal 0.0-2.0 [facility] Comment on above: Performed By: #### P INR #### [facility] ([id number]) [address], [address] [place] [address] Body temperature 98.6 [degF] Normal 37.0 [facility] Comment on above: Performed By: #### P INR #### [facility] ([id number]) [address], [address] [place] [address] Glucose [Mass/Vol] 125 mg/dL High 65-99 [facility] Comment on above: Performed By: #### P INR #### [facility] ([id number]) [address] [place] [address] HCO3 (Bld) [Moles/Vol] 25.3 mmol/L Normal 22-26 [facility] Comment on above: Performed By: #### P INR #### [facility] ([id number]) [address], [address] [place] [address] Hematocrit (Bld) [Volume fraction] 31 % Low 39-49 [facility] Comment on above: Performed By: #### P INR #### [facility] ([id number]) [address], [address] [place] [address] Hemoglobin (Bld) [Mass/Vol] 10.0 g/dL Low 13.0-17.0 [facility] Comment on above: Performed By: #### P INR #### [facility] ([id number]) [address], [address] [place] [address] INSP. O2 CONC. 50 % Normal [facility] Comment on above: Performed By: #### P INR #### [facility] ([id number]) [address], [address] [place] [address] IONIZED CALCIUM 4.7 mg/dL Normal 4.5-5.3 [facility] Comment on above: Performed By: #### P INR #### [facility] ([id number]) [address] [place] [address], [address] [place] [address] Oxygen (Bld) [Partial pressure] 131 mm[Hg] High 80-100 [facility] Comment on above: Performed By: #### P INR #### [facility] ([id number]) [address] [facility] [place] [address] Oxygen saturation in Blood 99.9 % Normal >90 [facility] Comment on above: Performed By: #### P INR #### [facility] ([id number]) [address] [facility] [place] [address] PCO2 42.7 MMHG Normal 35-45 [facility] Comment on above: Performed By: #### P INR #### [facility] ([id number]) [address], [address] [place] [address] pH (Bld) 7.381 [pH] Normal 7.350-7.45 0 [facility] Comment on above: Performed By: #### P INR #### [facility] ([id number]) [address] [facility] [place] [address] Potassium [Moles/Vol] 3.7 mmol/L Normal 3.5-5.[address] [facility] Comment on above: Performed By: #### P INR #### [facility] ([id number]) [address], [address] [place] [address] SAMPLE SITE KECIA Normal [facility] Comment on above: Performed By: #### P INR #### [facility] ([id number]) [address], [address] [place] [address] SAMPLE TYPE Arterial Normal [facility] Comment on above: Performed By: #### P INR #### [facility] ([id number]) [address] [place] [address] Sodium [Moles/Vol] 139 mmol/L Normal 134-146 [facility] Comment on above: Performed By: #### P INR #### [facility] ([id number]) [address] [place] [address] aPTT Coag (PPP) [Time]on aPTT Coag (Bld) [Time] 30 s Normal 26-37 [facility] Comment on above: Performed By: #### P INR #### [facility] ([id number]) [address] [place] [address] Glucose Glucometer (BldC) [M ass/Vol]on 11-07-2023 Glucose [Mass/Vol] 150 mg/dL High 65-99 [facility] Glucose [Mass/Vol] 58 mg/dL Low 65-99 [facility] POC DMSE7ds 11-07-2023 Chloride [Moles/Vol] 98 mmol/L Normal 98-109 [facility] Comment on above: Performed By: #### I ELGBC #### [facility] ([id number]) [address] [place] [address] CO2 [Moles/Vol] 31 mmol/L Normal 22-32 [facility] Comment on above: Performed By: #### I ELGBC #### [facility] ([id number]) [address] [place] [address] Creatinine [Mass/Vol] 1.9 mg/dL High 0.7-1.[address] [facility] Comment on above: Result Comment: METH OD TRACEABLE TO IDMS STANDARD Performed By: #### I [facility] #### [facility] ([id number]) [address] [place] [address] GFR/1.73 sq M.predicted among non-blacks MDRD (S/P/Bld) [Vol rate/Area] 40 mL/min/{1.73_m2} Low >59 [facility] Comment on above: Result Comment: Reported eGFR is based on the CKD-EPI 2020 equation that does not use a race coefficient. Performed By: #### I [facility] #### [facility] ([id number]) [address] [place] [address] Glucose [Mass/Vol] 72 mg/dL Normal 65-99 [facility] Comment on above: Performed By: #### I [facility] #### [facility] ([id number]) [address] [place] [address] Potassium [Moles/Vol] 3.6 mmol/L Normal 3.5-5.[address] [facility] Comment on above: Performed By: #### I [facility] #### [facility] ([id number]) [address] [place] [address] Sodium [Moles/Vol] 139 mmol/L Normal 134-146 [facility] Comment on above: Performed By: #### I ELGB #### [facility] ([id number]) [address] [place] [address] Urea nitrogen [Mass/Vol] 31 mg/dL High 6-23 [facility] Comment on above: Performed By: #### I ELGB #### [facility] ([id number]) [address] [place] [address] PROTIME AND INRon 06-04-2024 INR Coag (PPP) [Relative time] 1.3 {INR} High 0.8-1.1 [facility] Comment on above: Performed By: #### P INR #### [facility] ([id number]) [address] [place] [address] PT Coag (PPP) [Time] 14.5 s High 9.8-13.2 [facility] Comment on above: Performed By: #### P INR #### 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 Normal [facility] Comment on above: Result Comment: Elec tronically Signed By: Simon HERRERAPadmini\.br\Date and Time Signed: 10/23/23 10:35 EDT US [...] MD Transcribed by: HASEEB Technologist: TARAN [facility] CHEMISTRYOrdered By: SYSTEM SYSTEM on 10-19-2023 [...] 370 Contrast amount in ml's: 150 Normal [facility] Consent for Treatmenton 10-03 Consent for Treatment [id number]#1.00TIFF Normal [facility] Creatinineon 10-19-2023 Creatinine [Mass/Vol] 1.6 mg/dL High 0.5-1.3 [facility] Comment on above: Performed By: #### 2 [id number] #### [facility] [address] [place] [address] Physician Orderon 10-19-2023 Physician Order [id number]#1.00TIFF Normal [facility] eGFRon 10-19-2023 eGFR 50 mL/min/1.73 m2 Low >=59 [facility] Comment on above: Order Comment: Order added by Discern Expert. Performed By: #### 1 [id number] #### [facility] [address] [place] [address] Outside Progress Noteon 10-03 Outside Progress Note [id number]#1.00TIFF Normal [facility] Physician Orderon 10-18-2023 Physician Order [id number]#1.00TIF F Normal [facility] Physician Order [id number]#1.00TIFF Normal [facility] Basophils Auto (Bld) [#/Vol] on 10-06-2023 Basophils (Bld) [#/Vol] 0.0 10 3/uL 0.0-0.1 [facility] Basophils/100 WBC Auto (Bld) on 10-06-2023 Basophils/100 WBC (Bld) 0.3 % 0.2-2.0 [facility] Eosinophils/100 WBC Auto (Bl d)on 10-06-2023 Eosinophils/100 WBC (Bld) 1.9 % 0.9-7.0 [facility] Erythrocyte distribution wid th Auto (RBC) [Ratio]on 10-06-2023 Erythrocyte distribution width (RBC) [Ratio] 19.9 % High 11.0-15.0 [facility] Estimated glomerular filtrat ion rate (GFR) non- Americanon 10-06-2023 GFR/1.73 sq M.predicted among non-blacks MDRD (S/P/Bld) [Vol rate/Area] 42 mL/min/{1.73_m2} Low >=60 [facility] Globulin Calc (S) [Mass/Vol] on 10-06-2023 Globulin (S) [Mass/Vol] 4.3 g/dL [facility] Hematocrit Auto (Bld) [Volum e fraction]on 10-06-2023 Hematocrit (Bld) [Volume fraction] 28.3 % Low 42.0-54.0 [facility] Hemoglobin [Mass/volume] in Bloodon 10-06-2023 Hemoglobin (Bld) [Mass/Vol] 8.4 g/dL Low 14.0-18.0 [facility] - Chemistry and C hemistry - challengeon 10-06-2023 Albumin [Mass/Vol] 2.1 g/dL Low 3.4-5.0 [facility] ALP [Catalytic activity/Vol] 133 U/L High 46-116 [facility] ALT [Catalytic activity/Vol] 18 U/L 16-63 [facility] AST [Catalytic activity/Vol] 20 U/L 15-37 [facility] Bilirubin [Mass/Vol] 0.3 mg/dL 0.2-1.0 [facility] Calcium [Mass/Vol] 9.4 mg/dL 8.5-10.1 [facility] Chloride [Moles/Vol] 103 mmol/L 98-107 [facility] CO2 [Moles/Vol] 23.7 mmol/L 21.0-32.0 [facility] Creatinine [Mass/Vol] 1.67 mg/dL High 0.70-1.30 [facility] GFR/1.73 sq M.predicted MDRD (S/P/Bld) [Vol rate/Area] 52 mL/min/{1.73_m2} Low >=60 [facility] Glucose [Mass/Vol] 91 mg/dL 74-106 [facility] Magnesium [Mass/Vol] 1.6 mg/dL Low 1.8-2.4 [facility] Potassium [Moles/Vol] 4.8 mmol/L 3.5-5.1 [facility] Protein [Mass/Vol] 6.4 g/dL 6.4-8.2 [facility] Sodium [Moles/Vol] 136 mmol/L 136-145 [facility] Urea nitrogen [Mass/Vol] 29.0 mg/dL High 7.0-18.0 [facility] Urea nitrogen/Creatinine [Mass ratio] 17.4 mg/mg [facility] - Hematology and Cell countson 10-06-2023 ESR (Bld) [Velocity] mm/h High <=20 [facility] Immature granulocytes/100 WBC (Bld) 1.5 % High 0.0-0.5 [facility] Leukocytes [#/volume] correc jorge for nucleated erythrocytes in Blood by Automated counon 10-06-2023 WBC corrected for nucl RBC Auto (Bld) [#/Vol] 11.6 10 3/uL High 4.0-11.0 [facility] Lymphocytes Auto (Bld) [#/Vo l]on 10-06-2023 Lymphocytes (Bld) [#/Vol] 1.5 10 3/uL 1.2-3.8 [facility] Lymphocytes/100 WBC Auto (Bl d)on 10-06-2023 Lymphocytes/100 WBC (Bld) 12.9 % Low 20.5-60.0 [facility] MCH Auto (RBC) [Entitic mass ]on 10-06-2023 MCH (RBC) [Entitic mass] 22.5 pg Low 25.9-34.0 [facility] MCHC Auto (RBC) [Mass/Vol]on 10-06-2023 MCHC (RBC) [Mass/Vol] 29.7 g/dL Low 29.9-35.2 [facility] MCV Auto (RBC) [Entitic vol] on 10-06-2023 MCV (RBC) [Entitic vol] 75.9 fL Low 80.0-94.0 [facility] Monocytes Auto (Bld) [#/Vol] on 10-06-2023 Monocytes (Bld) [#/Vol] 1.3 10 3/uL High 0.3-0.8 [facility] Monocytes/100 WBC Auto (Bld) on 10-06-2023 Monocytes/100 WBC (Bld) 10.9 % 1.7-12.0 [facility] Neutrophils Auto (Bld) [#/Vo l]on 10-06-2023 Neutrophils (Bld) [#/Vol] 8.4 10 3/uL High 1.4-6.5 [facility] Neutrophils/100 WBC Auto (Bl d)on 10-06-2023 Neutrophils/100 WBC (Bld) 72.5 % 43.0-75.0 [facility] No Panel Informationon 10-05 Eosinophils # (Auto) 0.2 10 3/uL 0.0-0.7 [facility] Immature Granulocyte # (Auto) 0.17 10 3/uL High 0.00-0.03 [facility] Platelet mean volume Auto (B ld) [Entitic vol]on 10-06-2023 Platelet mean volume (Bld) [Entitic vol] 10.3 fL 9.5-13.5 [facility] Platelets Auto (Bld) [#/Vol] on 10-06-2023 Platelets (Bld) [#/Vol] 233 10 3/uL 150-450 [facility] RBC Auto (Bld) [#/Vol]on RBC (Bld) [#/Vol] 3.73 10 6/uL Low 4.70-6.10 [facility] Serum or plasma albumin/glob ulin mass ratioon 10-06-2023 Albumin/Globulin [Mass ratio] 0.5 {ratio} [facility] Serum or plasma anion gap de terminationon 10-06-2023 Anion gap [Moles/Vol] 14.1 mmol/L Fi [facility] Basophils Auto (Bld) [#/Vol] on 10-05-2023 Basophils (Bld) [#/Vol] 0.1 10 3/uL 0.0-0.1 [facility] Basophils/100 WBC Auto (Bld) on 10-05-2023 Basophils/100 WBC (Bld) 0.6 % 0.2-2.0 [facility] Eosinophils/100 WBC Auto (Bl d)on 10-05-2023 Eosinophils/100 WBC (Bld) 3.3 % 0.9-7.0 [facility] Erythrocyte distribution wid th Auto (RBC) [Ratio]on 10-05-2023 Erythrocyte distribution width (RBC) [Ratio] 19.6 % High 11.0-15.0 [facility] Estimated glomerular filtrat ion rate (GFR) non- Americanon 10-05-2023 GFR/1.73 sq M.predicted among non-blacks MDRD (S/P/Bld) [Vol rate/Area] 41 mL/min/{1.73_m2} Low >=60 [facility] Globulin Calc (S) [Mass/Vol] on 10-05-2023 Globulin (S) [Mass/Vol] 4.7 g/dL [facility] Hematocrit Auto (Bld) [Volum e fraction]on 10-05-2023 Hematocrit (Bld) [Volume fraction] 29.9 % Low 42.0-54.0 [facility] Hemoglobin [Mass/volume] in Bloodon 10-05-2023 Hemoglobin (Bld) [Mass/Vol] 9.0 g/dL Low 14.0-18.0 [facility] Guy 10-05-2023 L Specimen: [id number] Received: 10/06/23 Status: [facility] Nath Num: [id number] Spec Type: Surgical Subm Dr: Paula Elias DPM, MS Tissues: A DIGIT AMPUTATION (RT 2,3,4 AND 5 METATARSAL AM) Procedures: HE/6, Gross/Micro L4, Decalcification Age/ Patient Sex Location Account Attending Physician Solomon Feldman SR 58/M LABELL [id number] Paula Elias DPM, MS SPEC NUM: [id number] RECD: 10/06/23 STATUS: [facility] NUM: [id number] SHAKIRA: 10/05/[address]: Paula Elias DPM, [...] specimen demonstrates firm, yellow spongy bone matrix. Product Mgr sections are submitted as follows: A1: Skin and soft tissue margins A2: Second digit, bone margin; #1 proximal phalangeal margin (following decal) A3: Third digit, bone margin; #2 proximal phalangeal margin (following decal) A4: Fourth digit, bone margin; #3 proximal phalangeal margin (following decal) A5: Fifth digit, bone margin; #4 proximal phalangeal margin (following decal) Specimen: [id number] Received: 10/06/23 Status: [facility] N[facility] Num: [id number] Spec Type: Surgical Subm Dr: Puala Elias,LINDSEY, MS Tissues: A DIGIT AMPUTATION (RT 2,3,4 AND 5 METATARSAL AM) Procedures: LULU/Ramirez, Gross/Micro L4, Decalcification Patient: Solomon Feldman SR [id number] (Continued) Specimen: [id number] Received: 10/06/23 (Continued) Gross Description (Continued) Signed (signature on file) Padmini Linn MD 10/10/23 1542 Specimen: [id number] Received: 10/06/23 Status: [facility] N[facility] Num: [id number] Spec Type: Surgical Subm Dr: Paula Elias DPM, MS Tissues: A DIGIT AMPUTATION (RT 2,3,4 AND 5 METATARSAL AM) Procedures: HE/6, Gross/Micro L4, Decalcification Patient: Solomon Feldman SR [id number] (Continued) Specimen: [id number] Received: 10/06/23 (Continued) Gross Description (Continued) A6: Full-thickness section to include skin, underlying soft tissue and bone (following decal) Clinical history: None given CPT Codes 43622 FOREFOOT AND DIGITS Specimen: [id number] Received: 10/06/23 Status: [facility] N[facility] Num: [id number] Spec Type: Surgical Subm Dr: Paula Elias,LINDSEY, MS Tissues: A DIGIT AMPUTATION (RT 2,3,4 AND 5 METATARSAL AM) Procedures: HE/6, Gross/Micro L4, Decalcification Patient: Solomon Feldman SR [id number] (Continued) Signed (signature on file) Padmini Linn MD 10/10/23 1542 Normal [facility] Laboratory - Chemistry and C hemistry - challengeon 10-05-2023 Albumin [Mass/Vol] 2.2 g/dL Low 3.4-5.0 [facility] ALP [Catalytic activity/Vol] 140 U/L High 46-116 [facility] ALT [Catalytic activity/Vol] 18 U/L 16-63 [facility] AST [Catalytic activity/Vol] 22 U/L 15-37 [facility] Bilirubin [Mass/Vol] 0.5 mg/dL 0.2-1.0 [facility] Calcium [Mass/Vol] 9.2 mg/dL 8.5-10.1 [facility] Chloride [Moles/Vol] 100 mmol/L 98-107 [facility] CO2 [Moles/Vol] 22.6 mmol/L 21.0-32.0 [facility] Creatinine [Mass/Vol] 1.74 mg/dL High 0.70-1.30 [facility] GFR/1.73 sq M.predicted MDRD (S/P/Bld) [Vol rate/Area] 49 mL/min/{1.73_m2} Low >=60 [facility] Glucose [Mass/Vol] 162 mg/dL High 74-106 [facility] Magnesium [Mass/Vol] 1.7 mg/dL Low 1.8-2.4 [facility] Potassium [Moles/Vol] 5.3 mmol/L High 3.5-5.1 [facility] Protein [Mass/Vol] 6.9 g/dL 6.4-8.2 [facility] Sodium [Moles/Vol] 133 mmol/L Low 136-145 [facility] Urea nitrogen [Mass/Vol] 30.0 mg/dL High 7.0-18.0 [facility] Urea nitrogen/Creatinine [Mass ratio] 17.2 mg/mg [facility] Laboratory - Hematology and Cell countson 10-05-2023 ESR (Bld) [Velocity] 130 mm/h High <=20 [facility] Immature granulocytes/100 WBC (Bld) 1.3 % High 0.0-0.5 [facility] Leukocytes [#/volume] correc jorge for nucleated erythrocytes in Blood by Automated counon 10-05-2023 WBC corrected for nucl RBC Auto (Bld) [#/Vol] 12.6 10 3/uL High 4.0-11.0 [facility] Lymphocytes Auto (Bld) [#/Vo l]on 10-05-2023 Lymphocytes (Bld) [#/Vol] 1.3 10 3/uL 1.2-3.8 [facility] Lymphocytes/100 WBC Auto (Bl d)on 10-05-2023 Lymphocytes/100 WBC (Bld) 10.1 % Low 20.5-60.0 [facility] MCH Auto (RBC) [Entitic mass ]on 10-05-2023 MCH (RBC) [Entitic mass] 22.7 pg Low 25.9-34.0 [facility] MCHC Auto (RBC) [Mass/Vol]on 10-05-2023 MCHC (RBC) [Mass/Vol] 30.1 g/dL 29.9-35.2 [facility] MCV Auto (RBC) [Entitic vol] on 10-05-2023 MCV (RBC) [Entitic vol] 75.3 fL Low 80.0-94.0 [facility] Monocytes Auto (Bld) [#/Vol] on 10-05-2023 Monocytes (Bld) [#/Vol] 1.4 10 3/uL High 0.3-0.8 [facility] Monocytes/100 WBC Auto (Bld) on 10-05-2023 Monocytes/100 WBC (Bld) 10.9 % 1.7-12.0 [facility] Neutrophils Auto (Bld) [#/Vo l]on 10-05-2023 Neutrophils (Bld) [#/Vol] 9.3 10 3/uL High 1.4-6.5 [facility] Neutrophils/100 WBC Auto (Bl d)on 10-05-2023 Neutrophils/100 WBC (Bld) 73.8 % 43.0-75.0 [facility] No Panel Informationon 10-04 Eosinophils # (Auto) 0.4 10 3/uL 0.0-0.7 [facility] Immature Granulocyte # (Auto) 0.16 10 3/uL High 0.00-0.03 [facility] Platelet mean volume Auto (B ld) [Entitic vol]on 10-05-2023 Platelet mean volume (Bld) [Entitic vol] 11.3 fL 9.5-13.5 [facility] Platelets Auto (Bld) [#/Vol] on 10-05-2023 Platelets (Bld) [#/Vol] 203 10 3/uL 150-450 [facility] RBC Auto (Bld) [#/Vol]on RBC (Bld) [#/Vol] 3.97 10 6/uL Low 4.70-6.10 [facility] Serum or plasma albumin/glob ulin mass ratioon 10-05-2023 Albumin/Globulin [Mass ratio] 0.5 {ratio} [facility] Serum or plasma anion gap de terminationon 10-05-2023 Anion gap [Moles/Vol] 15.7 mmol/L Fi [facility] Basophils Auto (Bld) [#/Vol] on 10-04-2023 Basophils (Bld) [#/Vol] 0.1 10 3/uL 0.0-0.1 [facility] Basophils/100 WBC Auto (Bld) on 10-04-2023 Basophils/100 WBC (Bld) 0.5 % 0.2-2.0 [facility] Eosinophils/100 WBC Auto (Bl d)on 10-04-2023 Eosinophils/100 WBC (Bld) 3.6 % 0.9-7.0 [facility] Erythrocyte distribution wid th Auto (RBC) [Ratio]on 10-04-2023 Erythrocyte distribution width (RBC) [Ratio] 19.6 % High 11.0-15.0 [facility] Estimated glomerular filtrat ion rate (GFR) non- Americanon 10-04-2023 GFR/1.73 sq M.predicted among non-blacks MDRD (S/P/Bld) [Vol rate/Area] 44 mL/min/{1.73_m2} Low >=60 [facility] Globulin Calc (S) [Mass/Vol] on 10-04-2023 Globulin (S) [Mass/Vol] 4.3 g/dL [facility] Hematocrit Auto (Bld) [Volum e fraction]on 10-04-2023 Hematocrit (Bld) [Volume fraction] 26.8 % Low 42.0-54.0 [facility] Hemoglobin [Mass/volume] in Bloodon 10-04-2023 Hemoglobin (Bld) [Mass/Vol] 7.9 g/dL Low 14.0-18.0 [facility] Laboratory - Chemistry and C hemistry - challengeon 10-04-2023 Albumin [Mass/Vol] 1.9 g/dL Low 3.4-5.0 [facility] ALP [Catalytic activity/Vol] 135 U/L High 46-116 [facility] ALT [Catalytic activity/Vol] 16 U/L 16-63 [facility] AST [Catalytic activity/Vol] 19 U/L 15-37 [facility] Bilirubin [Mass/Vol] 0.4 mg/dL 0.2-1.0 [facility] Calcium [Mass/Vol] 7.8 mg/dL Low 8.5-10.1 [facility] Chloride [Moles/Vol] 102 mmol/L 98-107 [facility] CO2 [Moles/Vol] 25.0 mmol/L 21.0-32.0 [facility] Creatinine [Mass/Vol] 1.61 mg/dL High 0.70-1.30 [facility] GFR/1.73 sq M.predicted MDRD (S/P/Bld) [Vol rate/Area] 54 mL/min/{1.73_m2} Low >=60 [facility] Glucose [Mass/Vol] 136 mg/dL High 74-106 [facility] Magnesium [Mass/Vol] 1.7 mg/dL Low 1.8-2.4 [facility] Potassium [Moles/Vol] 5.1 mmol/L 3.5-5.1 [facility] Protein [Mass/Vol] 6.2 g/dL Low 6.4-8.2 [facility] Sodium [Moles/Vol] 134 mmol/L Low 136-145 [facility] Urea nitrogen [Mass/Vol] 25.0 mg/dL High 7.0-18.0 [facility] Urea nitrogen/Creatinine [Mass ratio] 15.5 mg/mg [facility] Laboratory - Hematology and Cell countson 10-04-2023 ESR (Bld) [Velocity] 117 mm/h High <=20 [facility] Immature granulocytes/100 WBC (Bld) 0.9 % High 0.0-0.5 [facility] Leukocytes [#/volume] correc jorge for nucleated erythrocytes in Blood by Automated counon 10-04-2023 WBC corrected for nucl RBC Auto (Bld) [#/Vol] 11.5 10 3/uL High 4.0-11.0 [facility] Lymphocytes Auto (Bld) [#/Vo l]on 10-04-2023 Lymphocytes (Bld) [#/Vol] 1.3 10 3/uL 1.2-3.8 [facility] Lymphocytes/100 WBC Auto (Bl d)on 10-04-2023 Lymphocytes/100 WBC (Bld) 10.9 % Low 20.5-60.0 [facility] MCH Auto (RBC) [Entitic mass ]on 10-04-2023 MCH (RBC) [Entitic mass] 22.4 pg Low 25.9-34.0 [facility] MCHC Auto (RBC) [Mass/Vol]on 10-04-2023 MCHC (RBC) [Mass/Vol] 29.5 g/dL Low 29.9-35.2 [facility] MCV Auto (RBC) [Entitic vol] on 10-04-2023 MCV (RBC) [Entitic vol] 75.9 fL Low 80.0-94.0 [facility] Monocytes Auto (Bld) [#/Vol] on 10-04-2023 Monocytes (Bld) [#/Vol] 1.4 10 3/uL High 0.3-0.8 [facility] Monocytes/100 WBC Auto (Bld) on 10-04-2023 Monocytes/100 WBC (Bld) 12.4 % High 1.7-12.0 [facility] Neutrophils Auto (Bld) [#/Vo l]on 10-04-2023 Neutrophils (Bld) [#/Vol] 8.3 10 3/uL High 1.4-6.5 [facility] Neutrophils/100 WBC Auto (Bl d)on 10-04-2023 Neutrophils/100 WBC (Bld) 71.7 % 43.0-75.0 [facility] No Panel Informationon 10-03 Eosinophils # (Auto) 0.4 10 3/uL 0.0-0.7 [facility] Immature Granulocyte # (Auto) 0.10 10 3/uL High 0.00-0.03 [facility] Platelet mean volume Auto (B ld) [Entitic vol]on 10-04-2023 Platelet mean volume (Bld) [Entitic vol] 11.5 fL 9.5-13.5 [facility] Platelets Auto (Bld) [#/Vol] on 10-04-2023 Platelets (Bld) [#/Vol] 154 10 3/uL 150-450 [facility] RBC Auto (Bld) [#/Vol]on RBC (Bld) [#/Vol] 3.53 10 6/uL Low 4.70-6.10 [facility] Serum or plasma albumin/glob ulin mass ratioon 10-04-2023 Albumin/Globulin [Mass ratio] 0.4 {ratio} [facility] Serum or plasma anion gap de terminationon 10-04-2023 Anion gap [Moles/Vol] 12.1 [facility] Auto (Bld) [#/Vol] on 10-03-2023 Basophils (Bld) [#/Vol] 0.1 10 3/uL 0.0-0.1 [facility] Basophils/100 WBC Auto (Bld) on 10-03-2023 Basophils/100 WBC (Bld) 0.7 % 0.2-2.0 [facility] Eosinophils/100 WBC Auto (Bl d)on 10-03-2023 Eosinophils/100 WBC (Bld) 2.7 % 0.9-7.0 [facility] Erythrocyte distribution wid th Auto (RBC) [Ratio]on 10-03-2023 Erythrocyte distribution width (RBC) [Ratio] 19.2 % High 11.0-15.0 [facility] Estimated glomerular filtrat ion rate (GFR) non- Americanon 10-03-2023 GFR/1.73 sq M.predicted among non-blacks MDRD (S/P/Bld) [Vol rate/Area] 46 mL/min/{1.73_m2} Low >=60 [facility] Globulin Calc (S) [Mass/Vol] on 10-03-2023 Globulin (S) [Mass/Vol] 4.1 g/dL [facility] Hematocrit Auto (Bld) [Volum e fraction]on 10-03-2023 Hematocrit (Bld) [Volume fraction] 26.4 % Low 42.0-54.0 [facility] Hemoglobin [Mass/volume] in Bloodon 10-03-2023 Hemoglobin (Bld) [Mass/Vol] 8.1 g/dL Low 14.0-18.0 [facility] Laboratory - Chemistry and C hemistry - challengeon 10-03-2023 Albumin [Mass/Vol] 1.9 g/dL Low 3.4-5.0 [facility] ALP [Catalytic activity/Vol] 140 U/L High 46-116 [facility] ALT [Catalytic activity/Vol] 17 U/L 16-63 [facility] AST [Catalytic activity/Vol] 21 U/L 15-37 [facility] Bilirubin [Mass/Vol] 0.3 mg/dL 0.2-1.0 [facility] Calcium [Mass/Vol] 6.7 mg/dL Low 8.5-10.1 [facility] Chloride [Moles/Vol] 101 mmol/L 98-107 [facility] CO2 [Moles/Vol] 23.9 mmol/L 21.0-32.0 [facility] Creatinine [Mass/Vol] 1.57 mg/dL High 0.70-1.30 [facility] GFR/1.73 sq M.predicted MDRD (S/P/Bld) [Vol rate/Area] 55 mL/min/{1.73_m2} Low >=60 [facility] Glucose [Mass/Vol] 142 mg/dL High 74-106 [facility] Magnesium [Mass/Vol] 1.3 mg/dL Low 1.8-2.4 [facility] Potassium [Moles/Vol] 4.8 mmol/L 3.5-5.1 [facility] Protein [Mass/Vol] 6.0 g/dL Low 6.4-8.2 [facility] Sodium [Moles/Vol] 134 mmol/L Low 136-145 [facility] Urea nitrogen [Mass/Vol] 23.0 mg/dL High 7.0-18.0 [facility] Urea nitrogen/Creatinine [Mass ratio] 14.6 mg/mg [facility] Laboratory - Hematology and Cell countson 10-03-2023 ESR (Bld) [Velocity] mm/h High <=20 [facility] Immature granulocytes/100 WBC (Bld) 1.0 % High 0.0-0.5 [facility] Leukocytes [#/volume] correc jorge for nucleated erythrocytes in Blood by Automated counon 10-03-2023 WBC corrected for nucl RBC Auto (Bld) [#/Vol] 11.6 10 3/uL High 4.0-11.0 [facility] Lymphocytes Auto (Bld) [#/Vo l]on 10-03-2023 Lymphocytes (Bld) [#/Vol] 1.4 10 3/uL 1.2-3.8 [facility] Lymphocytes/100 WBC Auto (Bl d)on 10-03-2023 Lymphocytes/100 WBC (Bld) 12.1 % Low 20.5-60.0 [facility] MCH Auto (RBC) [Entitic mass ]on 10-03-2023 MCH (RBC) [Entitic mass] 23.2 pg Low 25.9-34.0 [facility] MCHC Auto (RBC) [Mass/Vol]on 10-03-2023 MCHC (RBC) [Mass/Vol] 30.7 g/dL 29.9-35.2 [facility] MCV Auto (RBC) [Entitic vol] on 10-03-2023 MCV (RBC) [Entitic vol] 75.6 fL Low 80.0-94.0 [facility] Monocytes Auto (Bld) [#/Vol] on 10-03-2023 Monocytes (Bld) [#/Vol] 1.3 10 3/uL High 0.3-0.8 [facility] Monocytes/100 WBC Auto (Bld) on 10-03-2023 Monocytes/100 WBC (Bld) 10.8 % 1.7-12.0 [facility] Neutrophils Auto (Bld) [#/Vo l]on 10-03-2023 Neutrophils (Bld) [#/Vol] 8.5 10 3/uL High 1.4-6.5 [facility] Neutrophils/100 WBC Auto (Bl d)on 10-03-2023 Neutrophils/100 WBC (Bld) 72.7 % 43.0-75.0 [facility] No Panel Informationon 10-02 Eosinophils # (Auto) 0.3 10 3/uL 0.0-0.7 [facility] Immature Granulocyte # (Auto) 0.12 10 3/uL High 0.00-0.03 [facility] Platelet mean volume Auto (B ld) [Entitic vol]on 10-03-2023 Platelet mean volume (Bld) [Entitic vol] 11.3 fL 9.5-13.5 [facility] Platelets Auto (Bld) [#/Vol] on 10-03-2023 Platelets (Bld) [#/Vol] 141 10 3/uL Low 150-450 [facility] RBC Auto (Bld) [#/Vol]on RBC (Bld) [#/Vol] 3.49 10 6/uL Low 4.70-6.10 [facility] Serum or plasma albumin/glob ulin mass ratioon 10-03-2023 Albumin/Globulin [Mass ratio] 0.5 {ratio} [facility] Serum or plasma anion gap de terminationon 10-03-2023 Anion gap [Moles/Vol] 13.9 mmol/L [facility] Basophils Auto (Bld) [#/Vol] on 10-02-2023 Basophils (Bld) [#/Vol] 0.0 10 3/uL 0.0-0.1 [facility] Basophils/100 WBC Auto (Bld) on 10-02-2023 Basophils/100 WBC (Bld) 0.4 % 0.2-2.0 [facility] Eosinophils/100 WBC Auto (Bl d)on 10-02-2023 Eosinophils/100 WBC (Bld) 2.2 % 0.9-7.0 [facility] Erythrocyte distribution wid th Auto (RBC) [Ratio]on 10-02-2023 Erythrocyte distribution width (RBC) [Ratio] 19.3 % High 11.0-15.0 [facility] Estimated glomerular filtrat ion rate (GFR) non- Americanon 10-02-2023 GFR/1.73 sq M.predicted among non-blacks MDRD (S/P/Bld) [Vol rate/Area] 41 mL/min/{1.73_m2} Low >=60 [facility] Globulin Calc (S) [Mass/Vol] on 10-02-2023 Globulin (S) [Mass/Vol] 4.2 g/dL [facility] Hematocrit Auto (Bld) [Volum e fraction]on 10-02-2023 Hematocrit (Bld) [Volume fraction] 26.1 % Low 42.0-54.0 [facility] Hemoglobin [Mass/volume] in Bloodon 10-02-2023 Hemoglobin (Bld) [Mass/Vol] 7.8 g/dL Low 14.0-18.0 [facility] Guy 10-02-2023 L Specimen: [id number] Received: 10/03/23 Status: [facility] Num: [id number] Spec Type: Surgical Subm Dr: Paula Elias DPM, MS Tissues: A DIGIT AMPUTATION (FIRST METATARSAL RT FOOT) Procedures: HE/2, Gross/Micro L4, Decalcification Age/ Patient Sex Location Account Attending Physician Solomon Feldman SR 58/M LABELL [id number] Paula Elias DPM, MS SPEC NUM: [id number] RECD: 10/03/23 STATUS: [facility] NUM: [id number] SHAKIRA: 10/02/[address]: Paula Elias DPM, MS ENTERED: 10/03/[address]: Aurelio,Lab SPEC TYPE: Surgical DEPT: [facility]SE[facility] MARCANO ORDERED: , Gross/Micro L4, Decalcification ORDERED: , Gross/Micro L4, Decalcification Pathological Diagnosis First metatarsal, [...] firm yellow- pink spongy bone matrix. A student services representative longitudinal section is bisected and submitted following decalcification in cassettes A1?A2. Clinical history: Right diabetic foot infection CPT Codes 66979 Specimen: [id number] Received: 10/03/23 Status: [facility] Nath Num: [id number] Spec Type: Surgical Subm Dr: Paula Elias,DPSarika, MS Tissues: A DIGIT AMPUTATION (FIRST METATARSAL RT FOOT) Procedures: HE/2, Gross/Micro L4, Decalcification Patient: Solomon Feldman SR [id number] (Continued) Signed (signature on file) Padmini Linn MD 10/05/23 1426 Normal [facility] Laboratory - Chemistry and C hemistry - challengeon 10-02-2023 Albumin [Mass/Vol] 2.1 g/dL Low 3.4-5.0 [facility] ALP [Catalytic activity/Vol] 131 U/L High 46-116 [facility] ALT [Catalytic activity/Vol] 17 U/L 16-63 [facility] AST [Catalytic activity/Vol] 13 U/L Low 15-37 [facility] Bilirubin [Mass/Vol] 0.3 mg/dL 0.2-1.0 [facility] Calcium [Mass/Vol] 6.6 mg/dL Low 8.5-10.1 [facility] Chloride [Moles/Vol] 105 mmol/L 98-107 [facility] CO2 [Moles/Vol] 24.3 mmol/L 21.0-32.0 [facility] Creatinine [Mass/Vol] 1.72 mg/dL High 0.70-1.30 [facility] GFR/1.73 sq M.predicted MDRD (S/P/Bld) [Vol rate/Area] 50 mL/min/{1.73_m2} Low >=60 [facility] Glucose [Mass/Vol] 156 mg/dL High 74-106 [facility] Magnesium [Mass/Vol] 1.5 mg/dL Low 1.8-2.4 [facility] Potassium [Moles/Vol] 4.0 mmol/L 3.5-5.1 [facility] Protein [Mass/Vol] 6.3 g/dL Low 6.4-8.2 [facility] Sodium [Moles/Vol] 139 mmol/L 136-145 [facility] Urea nitrogen [Mass/Vol] 27.0 mg/dL High 7.0-18.0 [facility] Urea nitrogen/Creatinine [Mass ratio] 15.7 mg/mg [facility] Laboratory - Hematology and Cell countson 10-02-2023 Immature granulocytes/100 WBC (Bld) 0.4 % 0.0-0.5 [facility] ESR (Bld) [Velocity] 110 mm/h High <=20 [facility] - Microbiology an d Antimicrobial susceptibilityOrdered By: Truman Bryant on 10-02-2023 Microscopic observation Gram stain Nom (Unsp spec) [facility] Leukocytes [#/volume] correc jorge for nucleated erythrocytes in Blood by Automated counon 10-02-2023 WBC corrected for nucl RBC Auto (Bld) [#/Vol] 8.5 10 3/uL 4.0-11.0 [facility] Lymphocytes Auto (Bld) [#/Vo l]on 10-02-2023 Lymphocytes (Bld) [#/Vol] 1.5 10 3/uL 1.2-3.8 [facility] Lymphocytes/100 WBC Auto (Bl d)on 10-02-2023 Lymphocytes/100 WBC (Bld) 17.3 % Low 20.5-60.0 [facility] MCH Auto (RBC) [Entitic mass ]on 10-02-2023 MCH (RBC) [Entitic mass] 22.5 pg Low 25.9-34.0 [facility] MCHC Auto (RBC) [Mass/Vol]on 10-02-2023 MCHC (RBC) [Mass/Vol] 29.9 g/dL 29.9-35.2 [facility] MCV Auto (RBC) [Entitic vol] on 10-02-2023 MCV (RBC) [Entitic vol] 75.2 fL Low 80.0-94.0 [facility] Monocytes Auto (Bld) [#/Vol] on 10-02-2023 Monocytes (Bld) [#/Vol] 0.8 10 3/uL 0.3-0.8 [facility] Monocytes/100 WBC Auto (Bld) on 10-02-2023 Monocytes/100 WBC (Bld) 9.1 % 1.7-12.0 [facility] Neutrophils Auto (Bld) [#/Vo l]on 10-02-2023 Neutrophils (Bld) [#/Vol] 6.0 10 3/uL 1.4-6.5 [facility] Neutrophils/100 WBC Auto (Bl d)on 10-02-2023 Neutrophils/100 WBC (Bld) 70.6 % 43.0-75.0 [facility] No Panel Informationon 10-01 Eosinophils # (Auto) 0.2 10 3/uL 0.0-0.7 [facility] Immature Granulocyte # (Auto) 0.03 10 3/uL 0.00-0.03 [facility] Fungal Smear Result [facility] Miscellaneous Test Comment See comment [facility] Comment on above: Specimen Source: JONO TRT - Foot Right - Foot Rt - 604.000 No Panel InformationOrdered By: Truman Bryant on 10-02-2023 Tissue Culture [facility] No Panel InformationOrdered By: Paula Elias on 10-02-2023 Acid Fast Smear [facility] AFB Specimen Processing [facility] Platelet mean volume Auto (B ld) [Entitic vol]on 10-02-2023 Platelet mean volume (Bld) [Entitic vol] 10.6 fL 9.5-13.5 [facility] Platelets Auto (Bld) [#/Vol] on 10-02-2023 Platelets (Bld) [#/Vol] 142 10 3/uL Low 150-450 [facility] RBC Auto (Bld) [#/Vol]on RBC (Bld) [#/Vol] 3.47 10 6/uL Low 4.70-6.10 [facility] Serum or plasma albumin/glob ulin mass ratioon 10-02-2023 Albumin/Globulin [Mass ratio] 0.5 {ratio} [facility] Serum or plasma anion gap de terminationon 10-02-2023 Anion gap [Moles/Vol] 13.7 mmol/L Fi relandVidant Pungo [facility] Auto (Bld) [#/Vol] on 10-01-2023 Basophils (Bld) [#/Vol] 0.0 10 3/uL 0.0-0.1 [facility] Basophils/100 WBC Auto (Bld) on 10-01-2023 Basophils/100 WBC (Bld) 0.4 % 0.2-2.0 [facility] Eosinophils/100 WBC Auto (Bl d)on 10-01-2023 Eosinophils/100 WBC (Bld) 1.7 % 0.9-7.0 [facility] Erythrocyte distribution wid th Auto (RBC) [Ratio]on 10-01-2023 Erythrocyte distribution width (RBC) [Ratio] 18.5 % High 11.0-15.0 [facility] Estimated glomerular filtrat ion rate (GFR) non- Americanon 10-01-2023 GFR/1.73 sq M.predicted among non-blacks MDRD (S/P/Bld) [Vol rate/Area] 27 mL/min/{1.73_m2} Low >=60 [facility] Globulin Calc (S) [Mass/Vol] on 10-01-2023 Globulin (S) [Mass/Vol] 4.0 g/dL [facility] Hematocrit Auto (Bld) [Volum e fraction]on 10-01-2023 Hematocrit (Bld) [Volume fraction] 26.5 % Low 42.0-54.0 [facility] Hemoglobin [Mass/volume] in Bloodon 10-01-2023 Hemoglobin (Bld) [Mass/Vol] 8.0 g/dL Low 14.0-18.0 [facility] Laboratory - Chemistry and C hemistry - challengeon 10-01-2023 Lactate [Moles/Vol] 1.8 mmol/L 0.4-2.0 [facility] Albumin [Mass/Vol] 1.9 g/dL Low 3.4-5.0 [facility] ALP [Catalytic activity/Vol] 113 U/L 46-116 [facility] ALT [Catalytic activity/Vol] 17 U/L 16-63 [facility] AST [Catalytic activity/Vol] 14 U/L Low 15-37 [facility] Bilirubin [Mass/Vol] 0.3 mg/dL 0.2-1.0 [facility] Calcium [Mass/Vol] 5.7 mg/dL Low 8.5-10.1 [facility] Comment on above: RESULTS CALLED TO Patricio OlguinRN)@BY Marybel Hawkins MLT at 0619 Chloride [Moles/Vol] 102 mmol/L 98-107 [facility] CO2 [Moles/Vol] 20.4 mmol/L Low 21.0-32.0 [facility] Creatinine [Mass/Vol] 2.46 mg/dL High 0.70-1.30 [facility] GFR/1.73 sq M.predicted MDRD (S/P/Bld) [Vol rate/Area] 33 mL/min/{1.73_m2} Low >=60 [facility] Glucose [Mass/Vol] 67 mg/dL Low 74-106 [facility] Magnesium [Mass/Vol] 0.8 mg/dL Low 1.8-2.4 [facility] Comment on above: RESULTS CALLED TO Patricio CORREA)@BY SOFI[address] Way at 0601 Potassium [Moles/Vol] 3.1 mmol/L Low 3.5-5.1 [facility] Protein [Mass/Vol] 5.9 g/dL Low 6.4-8.2 [facility] Sodium [Moles/Vol] 138 mmol/L 136-145 [facility] Urea nitrogen [Mass/Vol] 28.0 mg/dL High 7.0-18.0 [facility] Urea nitrogen/Creatinine [Mass ratio] 11.4 mg/mg [facility] Laboratory - Hematology and Cell countson 10-01-2023 ESR (Bld) [Velocity] 96 mm/h High <=20 [facility] Immature granulocytes/100 WBC (Bld) 0.6 % High 0.0-0.5 [facility] Leukocytes [#/volume] correc jorge for nucleated erythrocytes in Blood by Automated counon 10-01-2023 WBC corrected for nucl RBC Auto (Bld) [#/Vol] 10.0 10 3/uL 4.0-11.0 [facility] Lymphocytes Auto (Bld) [#/Vo l]on 10-01-2023 Lymphocytes (Bld) [#/Vol] 1.3 10 3/uL 1.2-3.8 [facility] Lymphocytes/100 WBC Auto (Bl d)on 10-01-2023 Lymphocytes/100 WBC (Bld) 12.8 % Low 20.5-60.0 [facility] MCH Auto (RBC) [Entitic mass ]on 10-01-2023 MCH (RBC) [Entitic mass] 22.4 pg Low 25.9-34.0 [facility] MCHC Auto (RBC) [Mass/Vol]on 10-01-2023 MCHC (RBC) [Mass/Vol] 30.2 g/dL 29.9-35.2 [facility] MCV Auto (RBC) [Entitic vol] on 10-01-2023 MCV (RBC) [Entitic vol] 74.2 fL Low 80.0-94.0 [facility] Monocytes Auto (Bld) [#/Vol] on 10-01-2023 Monocytes (Bld) [#/Vol] 0.7 10 3/uL 0.3-0.8 [facility] Monocytes/100 WBC Auto (Bld) on 10-01-2023 Monocytes/100 WBC (Bld) 6.9 % 1.7-12.0 [facility] Neutrophils Auto (Bld) [#/Vo l]on 10-01-2023 Neutrophils (Bld) [#/Vol] 7.8 10 3/uL High 1.4-6.5 [facility] Neutrophils/100 WBC Auto (Bl d)on 10-01-2023 Neutrophils/100 WBC (Bld) 77.6 % High 43.0-75.0 [facility] No Panel Informationon 09-30 C-Reactive Protein, Quantitative 10.58 mg/dL High <=0.50 [facility] Eosinophils # (Auto) 0.2 10 3/uL 0.0-0.7 [facility] Immature Granulocyte # (Auto) 0.06 10 3/uL High 0.00-0.03 [facility] Troponin I High Sensitivity 8.3 pg/mL 4.0-76.1 [facility] Comment on above: CUT-OFF POINTS HAVE [...] Partial Pressure CO2 30.4 mm[Hg] Low 40.0-52.0 [facility] Venous Blood pH 7.421 7.330-7.43 0 [facility] Platelet mean volume Auto (B ld) [Entitic vol]on 10-01-2023 Platelet mean volume (Bld) [Entitic vol] 11.2 fL 9.5-13.5 [facility] Platelets Auto (Bld) [#/Vol] on 10-01-2023 Platelets (Bld) [#/Vol] 164 10 3/uL 150-450 [facility] RBC Auto (Bld) [#/Vol]on RBC (Bld) [#/Vol] 3.57 10 6/uL Low 4.70-6.10 [facility] Serum or plasma albumin/glob ulin mass ratioon 10-01-2023 Albumin/Globulin [Mass ratio] 0.5 {ratio} [facility] Serum or plasma anion gap de terminationon 10-01-2023 Anion gap [Moles/Vol] 18.7 mmol/L Fi [facility] Automated epithelial cells c ount in urine sediment (number/area)on 09-30-2023 Epithelial cells Auto (Urine sed) [#/Area] NONE SEEN #/LPF NONE/RARE [facility] Automated leukocytes count i n urine sediment (number/area)on 09-30-2023 WBC Auto (Urine sed) [#/Area] NONE SEEN #/HPF 0-2 [facility] Automated urine specific gra vity by refractometryon 09-30-2023 Specific gravity Refractometry automated (U) [Rel density] <=1.005 Abnormal 1.005-1.02 5 [facility] Basophils Auto (Bld) [#/Vol] on 09-30-2023 Basophils (Bld) [#/Vol] 0.1 10 3/uL 0.0-0.1 [facility] Basophils/100 WBC Auto (Bld) on 09-30-2023 Basophils/100 WBC (Bld) 0.4 % 0.2-2.0 [facility] Bilirubin Auto test strip (U ) [Mass/Vol]on 09-30-2023 Bilirubin (U) [Mass/Vol] Negative NEGATIVE [facility] Casts typing in urine sedime nt by light microscopyon 09-30-2023 Casts LM Nom (Urine sed) NONE SEEN #/LPF NONE SEEN [facility] Color Auto (U)on 09-30-2023 Color (U) LT. YELLOW YELLOW [facility] Eosinophils/100 WBC Auto (Bl d)on 09-30-2023 Eosinophils/100 WBC (Bld) 1.4 % 0.9-7.0 [facility] Erythrocyte distribution wid th Auto (RBC) [Ratio]on 09-30-2023 Erythrocyte distribution width (RBC) [Ratio] 19.0 % High 11.0-15.0 [facility] Estimated glomerular filtrat ion rate (GFR) non- Americanon 09-30-2023 GFR/1.73 sq M.predicted among non-blacks MDRD (S/P/Bld) [Vol rate/Area] 19 mL/min/{1.73_m2} Low >=60 [facility] Globulin Calc (S) [Mass/Vol] on 09-30-2023 Globulin (S) [Mass/Vol] 4.8 g/dL [facility] Hematocrit Auto (Bld) [Volum e fraction]on 09-30-2023 Hematocrit (Bld) [Volume fraction] 32.9 % Low 42.0-54.0 [facility] Hemoglobin [Mass/volume] in Bloodon 09-30-2023 Hemoglobin (Bld) [Mass/Vol] 10.0 g/dL Low 14.0-18.0 [facility] INR in Platelet poor plasma by Coagulation assayon 09-30-2023 INR Coag (PPP) [Relative time] 1.23 {INR} [facility] Comment on above: DESIRED INR:2.0-3.0 CONDITIONS NOT LISTED BELOW2.5-3.5 FOR PROSTHETIC HEART VALVE REPLACEMENT2.5-3.5 RECURRENT THROMBOSIS Ketones Auto test strip (U) [Mass/Vol]on 09-30-2023 Ketones (U) [Mass/Vol] Negative NEGATIVE Fi [facility] Laboratory - Chemistry and C hemistry - challengeon 09-30-2023 Lactate [Moles/Vol] 4.2 mmol/L High 0.4-2.0 [facility] Comment on above: RESULTS CALLED TO Patricio Genao (RN)@BY [address] Way at 2312 Albumin [Mass/Vol] 2.4 g/dL Low 3.4-5.0 [facility] ALP [Catalytic activity/Vol] 145 U/L High 46-116 [facility] ALT [Catalytic activity/Vol] 17 U/L 16-63 [facility] AST [Catalytic activity/Vol] 21 U/L 15-37 [facility] Bilirubin [Mass/Vol] 0.4 mg/dL 0.2-1.0 [facility] Calcium [Mass/Vol] 5.8 mg/dL Low 8.5-10.1 [facility] Comment on above: RESULTS CALLED TO GIOVANNA CASTANON @BY Verona Hanson at 1645 Chloride [Moles/Vol] 97 mmol/L Low 98-107 [facility] CO2 [Moles/Vol] 18.3 mmol/L Low 21.0-32.0 [facility] Creatinine [Mass/Vol] 3.43 mg/dL High 0.70-1.30 [facility] GFR/1.73 sq M.predicted MDRD (S/P/Bld) [Vol rate/Area] 22 mL/min/{1.73_m2} Low >=60 [facility] Glucose [Mass/Vol] 208 mg/dL High 74-106 [facility] Magnesium [Mass/Vol] 0.5 mg/dL Low 1.8-2.4 [facility] Comment on above: RESULTS CALLED TO Giovanna Castanon @BY Marybel Hawkins MLT [phone] Natriuretic peptide B (Bld) [Mass/Vol] 611.0 pg/mL <=900.0 [facility] Potassium [Moles/Vol] 3.9 mmol/L 3.5-5.1 [facility] Protein [Mass/Vol] 7.2 g/dL 6.4-8.2 [facility] Sodium [Moles/Vol] 137 mmol/L 136-145 [facility] Urea nitrogen [Mass/Vol] 34.0 mg/dL High 7.0-18.0 [facility] Urea nitrogen/Creatinine [Mass ratio] 9.9 mg/mg [facility] Laboratory - Hematology and Cell countson 09-30-2023 ESR (Bld) [Velocity] 130 mm/h High <=20 [facility] Immature granulocytes/100 WBC (Bld) 0.6 % High 0.0-0.5 [facility] Leukocytes [#/volume] correc jorge for nucleated erythrocytes in Blood by Automated counon 09-30-2023 WBC corrected for nucl RBC Auto (Bld) [#/Vol] 13.9 10 3/uL High 4.0-11.0 [facility] Lymphocytes Auto (Bld) [#/Vo l]on 09-30-2023 Lymphocytes (Bld) [#/Vol] 1.4 10 3/uL 1.2-3.8 [facility] Lymphocytes/100 WBC Auto (Bl d)on 09-30-2023 Lymphocytes/100 WBC (Bld) 10.1 % Low 20.5-60.0 [facility] MCH Auto (RBC) [Entitic mass ]on 09-30-2023 MCH (RBC) [Entitic mass] 22.7 pg Low 25.9-34.0 [facility] MCHC Auto (RBC) [Mass/Vol]on 09-30-2023 MCHC (RBC) [Mass/Vol] 30.4 g/dL 29.9-35.2 [facility] MCV Auto (RBC) [Entitic vol] on 09-30-2023 MCV (RBC) [Entitic vol] 74.6 fL Low 80.0-94.0 [facility] Monocytes Auto (Bld) [#/Vol] on 09-30-2023 Monocytes (Bld) [#/Vol] 0.9 10 3/uL High 0.3-0.8 [facility] Monocytes/100 WBC Auto (Bld) on 09-30-2023 Monocytes/100 WBC (Bld) 6.7 % 1.7-12.0 [facility] Mucus LM Ql (Urine sed)on Mucus Ql (Urine sed) NONE SEEN NONE SEEN [facility] Neutrophils Auto (Bld) [#/Vo l]on 09-30-2023 Neutrophils (Bld) [#/Vol] 11.2 10 3/uL High 1.4-6.5 [facility] Neutrophils/100 WBC Auto (Bl d)on 09-30-2023 Neutrophils/100 WBC (Bld) 80.8 % High 43.0-75.0 [facility] No Panel Informationon 09-29 Troponin I High Sensitivity 7.9 pg/mL 4.0-76.1 [facility] Comment on above: CUT-OFF POINTS HAVE [...] Partial Pressure CO2 29.6 mm[Hg] Low 40.0-52.0 [facility] Venous Blood pH 7.405 7.330-7.43 0 [facility] Urine Culture [facility]ed [facility] C-Reactive Protein, Quantitative 14.76 mg/dL High <=0.50 [facility] Eosinophils # (Auto) 0.2 10 3/uL 0.0-0.7 [facility] Immature Granulocyte # (Auto) 0.09 10 3/uL High 0.00-0.03 [facility] No Panel InformationOrdered By: Chandrika Castanon on 09-30-2023 Blood Culture 2 [facility] Wound Culture [facility] Blood Culture 1 [facility] Platelet mean volume Auto (B ld) [Entitic vol]on 09-30-2023 Platelet mean volume (Bld) [Entitic vol] 10.9 fL 9.5-13.5 [facility] Platelets Auto (Bld) [#/Vol] on 09-30-2023 Platelets (Bld) [#/Vol] 227 10 3/uL 150-450 [facility] Protein Auto test strip (U) [Mass/Vol]on 09-30-2023 Protein (U) [Mass/Vol] Negative NEG/TRACE [facility] Prothrombin time (PT)on 09-04 PT Coag (PPP) [Time] 12.9 s High 9.0-11.6 [facility] RBC Auto (Bld) [#/Vol]on RBC (Bld) [#/Vol] 4.41 10 6/uL Low 4.70-6.10 [facility] Serum or plasma albumin/glob ulin mass ratioon 09-30-2023 Albumin/Globulin [Mass ratio] 0.5 {ratio} [facility] Serum or plasma anion gap de terminationon 09-30-2023 Anion gap [Moles/Vol] 25.6 mmol/L Fi [facility] Specific gravity Auto test s trip (U) [Rel density]on 09-30-2023 Specific gravity (U) [Rel density] CLEAR CLEAR [facility] Urine bacteria detection by automated methodon 09-30-2023 Bacteria Auto Ql (U) NONE SEEN #/HPF NONE SEEN [facility] Urine glucose measurement by test strip (mass/volume)on 09-30-2023 Glucose Test strip (U) [Mass/Vol] 500 mg/dL Abnormal NEGATIVE [facility] Urine hemoglobin detection b y automated test stripon 09-30-2023 Hemoglobin Auto test strip Ql (U) TRACE-I NEGATIVE [facility] Urine nitrite detection by a utomated test stripon 04-27-2024 Nitrite Auto test strip Ql (U) Negative NEGATIVE [facility] Urine sediment crystal ident ification by light microscopyon 09-30-2023 Crystals LM Nom (Urine sed) None Seen #/HPF None Seen [facility] Urine sediment leukocyte cou nt by microscopy (number/high power field)on 09-30-2023 WBC LM.HPF (Urine sed) [#/Area] NONE SEEN #/HPF NONE SEEN [facility] Urobilinogen Auto test strip (U) [Mass/Vol]on 09-30-2023 Urobilinogen Qn (U) 0.2 {Brendan'U}/dL 0.2-1.0 [facility] pH Auto test strip (U)on pH (U) 5.5 [pH] 5.0-9.0 [facility] Guy 09-21-2023 L Specimen: [id number] Received: 09/21/23 Status: SOUDaniel Req Num: [id number] Spec Type: Surgical Subm Dr: Paula Elias DPM, MS Tissues: A Bone Fragments - Other than Path Fracture Procedures: HE, Gross/Micro L3, Decalcification Age/ Patient Sex Location Account Attending Physician Solomon Feldman SR 58/M LABELL [id number] Paula Elias DPM, MS SPEC NUM: [id number] RECD: 09/21/23 STATUS: COLTON YAP NUM: [id number] SHAKIRA: 09/21/[address]: Paula Elias DPM, MS ENTERED: 09/21/[address] [facility] [address]: SPEC TYPE: Surgical DEPT: RAMSEY MARCANO ENTERED BY: [id number] RECV BY: [id number] ORDERED: HE, Gross/Micro L3, Decalcification ORDERED: HE, [...] excisional debridement with skin substitute. CPT Codes 51269, 55173 Specimen: [id number] Received: 09/21/23 Status: COLTON Nath Num: [id number] Spec Type: Surgical Subm Dr: Paula Elias,DPSarika, MS Tissues: A Bone Fragments - Other than Path Fracture Procedures: LULU, Gross/Micro L3, Decalcification Patient: Solomon Feldman SR [id number] (Continued) Signed (signature on file) Victor Hugo Sotelo MD 09/26/23 0843 Normal [facility] Laboratory - Microbiology an d Antimicrobial susceptibilityOrdered By: Jenaro Lynch on 09-21-2023 Microscopic observation Gram stain Nom (Unsp spec) [facility] Activated partial thrombopla stin time (aPTT) in platelet poor plasma by coagulation aon 09-18-2023 aPTT Coag (PPP) [Time] 32.0 s 22.3-36.[address] [facility] Basophils Auto (Bld) [#/Vol] on 09-18-2023 Basophils (Bld) [#/Vol] 0.1 10 3/uL 0.0-0.1 [facility] Basophils/100 WBC Auto (Bld) on 09-18-2023 Basophils/100 WBC (Bld) 0.9 % 0.2-2.0 [facility] Eosinophils/100 WBC Auto (Bl d)on 09-18-2023 Eosinophils/100 WBC (Bld) 2.3 % 0.9-7.0 [facility] Erythrocyte distribution wid th Auto (RBC) [Ratio]on 09-18-2023 Erythrocyte distribution width (RBC) [Ratio] 18.8 % High 11.0-15.0 [facility] Estimated glomerular filtrat ion rate (GFR) non- Americanon 09-18-2023 GFR/1.73 sq M.predicted among non-blacks MDRD (S/P/Bld) [Vol rate/Area] 27 mL/min/{1.73_m2} Low >=60 [facility] Hematocrit Auto (Bld) [Volum e fraction]on 09-18-2023 Hematocrit (Bld) [Volume fraction] 35.0 % Low 42.0-54.0 [facility] Hemoglobin [Mass/volume] in Bloodon 09-18-2023 Hemoglobin (Bld) [Mass/Vol] 10.3 g/dL Low 14.0-18.0 [facility] INR in Platelet poor plasma by Coagulation assayon 09-18-2023 INR Coag (PPP) [Relative time] 1.08 {INR} [facility] Comment on above: DESIRED INR:2.0-3.0 CONDITIONS NOT LISTED BELOW2.5-3.5 FOR PROSTHETIC HEART VALVE REPLACEMENT2.5-3.5 RECURRENT THROMBOSIS Laboratory - Chemistry and C hemistry - challengeon 09-18-2023 Calcium [Mass/Vol] 8.9 mg/dL 8.5-10.1 [facility] Chloride [Moles/Vol] 97 mmol/L Low 98-107 [facility] CO2 [Moles/Vol] 28.2 mmol/L 21.0-32.0 [facility] Creatinine [Mass/Vol] 2.47 mg/dL High 0.70-1.30 [facility] GFR/1.73 sq M.predicted MDRD (S/P/Bld) [Vol rate/Area] 33 mL/min/{1.73_m2} Low >=60 [facility] Glucose [Mass/Vol] 200 mg/dL High 74-106 [facility] Potassium [Moles/Vol] 3.7 mmol/L 3.5-5.1 [facility] Sodium [Moles/Vol] 137 mmol/L 136-145 [facility] Urea nitrogen [Mass/Vol] 23.0 mg/dL High 7.0-18.0 [facility] Urea nitrogen/Creatinine [Mass ratio] 9.3 mg/mg [facility] Laboratory - Hematology and Cell countson 09-18-2023 Immature granulocytes/100 WBC (Bld) 0.6 % High 0.0-0.5 [facility] Leukocytes [#/volume] correc jorge for nucleated erythrocytes in Blood by Automated counon 09-18-2023 WBC corrected for nucl RBC Auto (Bld) [#/Vol] 12.4 10 3/uL High 4.0-11.0 [facility] Lymphocytes Auto (Bld) [#/Vo l]on 09-18-2023 Lymphocytes (Bld) [#/Vol] 2.4 10 3/uL 1.2-3.8 [facility] Lymphocytes/100 WBC Auto (Bl d)on 09-18-2023 Lymphocytes/100 WBC (Bld) 19.6 % Low 20.5-60.0 [facility] MCH Auto (RBC) [Entitic mass ]on 09-18-2023 MCH (RBC) [Entitic mass] 22.2 pg Low 25.9-34.0 [facility] MCHC Auto (RBC) [Mass/Vol]on 09-18-2023 MCHC (RBC) [Mass/Vol] 29.4 g/dL Low 29.9-35.2 [facility] MCV Auto (RBC) [Entitic vol] on 09-18-2023 MCV (RBC) [Entitic vol] 75.3 fL Low 80.0-94.0 [facility] Monocytes Auto (Bld) [#/Vol] on 09-18-2023 Monocytes (Bld) [#/Vol] 1.2 10 3/uL High 0.3-0.8 [facility] Monocytes/100 WBC Auto (Bld) on 09-18-2023 Monocytes/100 WBC (Bld) 10.0 % 1.7-12.0 [facility] Neutrophils Auto (Bld) [#/Vo l]on 09-18-2023 Neutrophils (Bld) [#/Vol] 8.2 10 3/uL High 1.4-6.5 [facility] Neutrophils/100 WBC Auto (Bl d)on 09-18-2023 Neutrophils/100 WBC (Bld) 66.6 % 43.0-75.0 [facility] No Panel Informationon 09-17 Eosinophils # (Auto) 0.3 10 3/uL 0.0-0.7 [facility] Immature Granulocyte # (Auto) 0.07 10 3/uL High 0.00-0.03 [facility] Platelet mean volume Auto (B ld) [Entitic vol]on 09-18-2023 Platelet mean volume (Bld) [Entitic vol] 10.9 fL 9.5-13.5 [facility] Platelets Auto (Bld) [#/Vol] on 09-18-2023 Platelets (Bld) [#/Vol] 300 10 3/uL 150-450 [facility] Prothrombin time (PT)on 09-03 PT Coag (PPP) [Time] 11.4 s 9.0-11.6 [facility] RBC Auto (Bld) [#/Vol]on RBC (Bld) [#/Vol] 4.65 10 6/uL Low 4.70-6.10 [facility] Serum or plasma anion gap de terminationon 09-18-2023 Anion gap [Moles/Vol] 15.5 mmol/L [facility] - Microbiology an d Antimicrobial susceptibilityOrdered By: Jenaro Lynch on 08-10-2023 Microscopic observation Gram stain Nom (Unsp spec) [facility] No Panel Informationon 08-09 Fungal Smear Result [facility] Miscellaneous Test Comment See comment [facility] Comment on above: Specimen Source: JONO TRT - Foot Right - Foot Rt - [id number] No Panel InformationOrdered By: Jenaro Lynch on 08-10-2023 Acid Fast Culture [facility] Acid Fast Smear [facility] AFB Specimen Processing [facility] Tissue Culture [facility] Basophils Auto (Bld) [#/Vol] on 08-07-2023 Basophils (Bld) [#/Vol] 0.1 10 3/uL 0.0-0.1 [facility] Basophils/100 WBC Auto (Bld) on 08-07-2023 Basophils/100 WBC (Bld) 0.7 % 0.2-2.0 [facility] Eosinophils/100 WBC Auto (Bl d)on 08-07-2023 Eosinophils/100 WBC (Bld) 3.9 % 0.9-7.0 [facility] Erythrocyte distribution wid th Auto (RBC) [Ratio]on 08-07-2023 Erythrocyte distribution width (RBC) [Ratio] 16.9 % 11.0-15.0 [facility] Estimated glomerular filtrat ion rate (GFR) non- Americanon 08-07-2023 GFR/1.73 sq M.predicted among non-blacks MDRD (S/P/Bld) [Vol rate/Area] 42 mL/min/{1.73_m2} >=60 [facility] Globulin Calc (S) [Mass/Vol] on 08-07-2023 Globulin (S) [Mass/Vol] 4.0 g/dL [facility] Hematocrit Auto (Bld) [Volum e fraction]on 08-07-2023 Hematocrit (Bld) [Volume fraction] 31.5 % 42.0-54.0 [facility] Hemoglobin [Mass/volume] in Bloodon 08-07-2023 Hemoglobin (Bld) [Mass/Vol] 9.4 g/dL 14.0-18.0 [facility] Laboratory - Chemistry and C hemistry - challengeon 08-07-2023 Albumin [Mass/Vol] 2.1 g/dL 3.4-5.0 [facility] ALP [Catalytic activity/Vol] 144 U/L 46-116 [facility] ALT [Catalytic activity/Vol] 21 U/L 16-63 [facility] AST [Catalytic activity/Vol] 25 U/L 15-37 [facility] Bilirubin [Mass/Vol] 0.4 mg/dL 0.2-1.0 [facility] Calcium [Mass/Vol] 8.1 mg/dL 8.5-10.1 [facility] Chloride [Moles/Vol] 102 mmol/L 98-107 [facility] CO2 [Moles/Vol] 24.7 mmol/L 21.0-32.0 [facility] Creatinine [Mass/Vol] 1.70 mg/dL 0.70-1.30 [facility] GFR/1.73 sq M.predicted MDRD (S/P/Bld) [Vol rate/Area] 50 mL/min/{1.73_m2} >=60 [facility] Glucose [Mass/Vol] 188 mg/dL 74-106 [facility] Potassium [Moles/Vol] 4.6 mmol/L 3.5-5.1 [facility] Protein [Mass/Vol] 6.1 g/dL 6.4-8.2 [facility] Sodium [Moles/Vol] 135 mmol/L 136-145 [facility] Urea nitrogen [Mass/Vol] 33.0 mg/dL 7.0-18.0 [facility] Urea nitrogen/Creatinine [Mass ratio] 19.4 mg/mg [facility] Laboratory - Hematology and Cell countson 08-07-2023 Immature granulocytes/100 WBC (Bld) 0.7 % 0.0-0.5 [facility] Leukocytes [#/volume] correc jorge for nucleated erythrocytes in Blood by Automated counon 08-07-2023 WBC corrected for nucl RBC Auto (Bld) [#/Vol] 12.0 10 3/uL 4.0-11.0 [facility] Lymphocytes Auto (Bld) [#/Vo l]on 08-07-2023 Lymphocytes (Bld) [#/Vol] 1.5 10 3/uL 1.2-3.8 [facility] Lymphocytes/100 WBC Auto (Bl d)on 08-07-2023 Lymphocytes/100 WBC (Bld) 12.4 % 20.5-60.0 [facility] MCH Auto (RBC) [Entitic mass ]on 08-07-2023 MCH (RBC) [Entitic mass] 22.5 pg 25.9-34.0 [facility] MCHC Auto (RBC) [Mass/Vol]on 08-07-2023 MCHC (RBC) [Mass/Vol] 29.8 g/dL 29.9-35.2 [facility] MCV Auto (RBC) [Entitic vol] on 08-07-2023 MCV (RBC) [Entitic vol] 75.4 fL 80.0-94.0 [facility] Monocytes Auto (Bld) [#/Vol] on 08-07-2023 Monocytes (Bld) [#/Vol] 1.2 10 3/uL 0.3-0.8 [facility] Monocytes/100 WBC Auto (Bld) on 08-07-2023 Monocytes/100 WBC (Bld) 10.1 % 1.7-12.0 [facility] Neutrophils Auto (Bld) [#/Vo l]on 08-07-2023 Neutrophils (Bld) [#/Vol] 8.7 10 3/uL 1.4-6.5 [facility] Neutrophils/100 WBC Auto (Bl d)on 08-07-2023 Neutrophils/100 WBC (Bld) 72.2 % 43.0-75.0 [facility] No Panel Informationon 08-06 Eosinophils # (Auto) 0.5 10 3/uL 0.0-0.7 [facility] Immature Granulocyte # (Auto) 0.09 10 3/uL 0.00-0.03 [facility] Platelet mean volume Auto (B ld) [Entitic vol]on 08-07-2023 Platelet mean volume (Bld) [Entitic vol] 11.7 fL 9.5-13.5 [facility] Platelets Auto (Bld) [#/Vol] on 08-07-2023 Platelets (Bld) [#/Vol] 222 10 3/uL 150-450 [facility] RBC Auto (Bld) [#/Vol]on RBC (Bld) [#/Vol] 4.18 10 6/uL 4.70-6.10 [facility] Serum or plasma albumin/glob ulin mass ratioon 08-07-2023 Albumin/Globulin [Mass ratio] 0.5 {ratio} [facility] Serum or plasma anion gap de terminationon 08-07-2023 Anion gap [Moles/Vol] 12.9 [facility] Basophils Auto (Bld) [#/Vol] on 08-06-2023 Basophils (Bld) [#/Vol] 0.1 10 3/uL 0.0-0.1 [facility] Basophils/100 WBC Auto (Bld) on 08-06-2023 Basophils/100 WBC (Bld) 0.7 % 0.2-2.0 [facility] Eosinophils/100 WBC Auto (Bl d)on 08-06-2023 Eosinophils/100 WBC (Bld) 3.3 % 0.9-7.0 [facility] Erythrocyte distribution wid th Auto (RBC) [Ratio]on 08-06-2023 Erythrocyte distribution width (RBC) [Ratio] 17.0 % 11.0-15.0 [facility] Estimated glomerular filtrat ion rate (GFR) non- Americanon 08-06-2023 GFR/1.73 sq M.predicted among non-blacks MDRD (S/P/Bld) [Vol rate/Area] 36 mL/min/{1.73_m2} >=60 [facility] Globulin Calc (S) [Mass/Vol] on 08-06-2023 Globulin (S) [Mass/Vol] 4.0 g/dL [facility] Hematocrit Auto (Bld) [Volum e fraction]on 08-06-2023 Hematocrit (Bld) [Volume fraction] 30.1 % 42.0-54.0 [facility] Hemoglobin [Mass/volume] in Bloodon 08-06-2023 Hemoglobin (Bld) [Mass/Vol] 8.8 g/dL 14.0-18.0 [facility] Laboratory - Chemistry and C hemistry - challengeon 08-06-2023 Albumin [Mass/Vol] 2.0 g/dL 3.4-5.0 [facility] ALP [Catalytic activity/Vol] 127 U/L 46-116 [facility] ALT [Catalytic activity/Vol] 14 U/L 16-63 [facility] AST [Catalytic activity/Vol] 16 U/L 15-37 [facility] Bilirubin [Mass/Vol] 0.4 mg/dL 0.2-1.0 [facility] Calcium [Mass/Vol] 7.9 mg/dL 8.5-10.1 [facility] Chloride [Moles/Vol] 99 mmol/L 98-107 [facility] CO2 [Moles/Vol] 25.0 mmol/L 21.0-32.0 [facility] Creatinine [Mass/Vol] 1.95 mg/dL 0.70-1.30 [facility] GFR/1.73 sq M.predicted MDRD (S/P/Bld) [Vol rate/Area] 43 mL/min/{1.73_m2} >=60 [facility] Glucose [Mass/Vol] 297 mg/dL 74-106 [facility] Potassium [Moles/Vol] 4.4 mmol/L 3.5-5.1 [facility] Protein [Mass/Vol] 6.0 g/dL 6.4-8.2 [facility] Sodium [Moles/Vol] 133 mmol/L 136-145 [facility] Urea nitrogen [Mass/Vol] 28.0 mg/dL 7.0-18.0 [facility] Urea nitrogen/Creatinine [Mass ratio] 14.4 mg/mg [facility] Laboratory - Hematology and Cell countson 08-06-2023 Immature granulocytes/100 WBC (Bld) 0.4 % 0.0-0.5 [facility] Leukocytes [#/volume] correc jorge for nucleated erythrocytes in Blood by Automated counon 08-06-2023 WBC corrected for nucl RBC Auto (Bld) [#/Vol] 10.1 10 3/uL 4.0-11.0 [facility] Lymphocytes Auto (Bld) [#/Vo l]on 08-06-2023 Lymphocytes (Bld) [#/Vol] 1.5 10 3/uL 1.2-3.8 [facility] Lymphocytes/100 WBC Auto (Bl d)on 08-06-2023 Lymphocytes/100 WBC (Bld) 14.4 % 20.5-60.0 [facility] MCH Auto (RBC) [Entitic mass ]on 08-06-2023 MCH (RBC) [Entitic mass] 22.5 pg 25.9-34.0 [facility] MCHC Auto (RBC) [Mass/Vol]on 08-06-2023 MCHC (RBC) [Mass/Vol] 29.2 g/dL 29.9-35.2 [facility] MCV Auto (RBC) [Entitic vol] on 08-06-2023 MCV (RBC) [Entitic vol] 77.0 fL 80.0-94.0 [facility] Monocytes Auto (Bld) [#/Vol] on 08-06-2023 Monocytes (Bld) [#/Vol] 1.1 10 3/uL 0.3-0.8 [facility] Monocytes/100 WBC Auto (Bld) on 08-06-2023 Monocytes/100 WBC (Bld) 10.4 % 1.7-12.0 [facility] Neutrophils Auto (Bld) [#/Vo l]on 08-06-2023 Neutrophils (Bld) [#/Vol] 7.2 10 3/uL 1.4-6.5 [facility] Neutrophils/100 WBC Auto (Bl d)on 08-06-2023 Neutrophils/100 WBC (Bld) 70.8 % 43.0-75.0 [facility] No Panel Informationon 08-05 Vancomycin Level Trough 13.6 ug/mL 5.0-20.0 [facility] Eosinophils # (Auto) 0.3 10 3/uL 0.0-0.7 [facility] Immature Granulocyte # (Auto) 0.04 10 3/uL 0.00-0.03 [facility] Platelet mean volume Auto (B ld) [Entitic vol]on 08-06-2023 Platelet mean volume (Bld) [Entitic vol] 12.2 fL 9.5-13.5 [facility] Platelets Auto (Bld) [#/Vol] on 08-06-2023 Platelets (Bld) [#/Vol] 190 10 3/uL 150-450 [facility] RBC Auto (Bld) [#/Vol]on RBC (Bld) [#/Vol] 3.91 10 6/uL 4.70-6.10 [facility] Serum or plasma albumin/glob ulin mass ratioon 08-06-2023 Albumin/Globulin [Mass ratio] 0.5 {ratio} [facility] Serum or plasma anion gap de terminationon 08-06-2023 Anion gap [Moles/Vol] 13.4 [facility] Automated epithelial cells c ount in urine sediment (number/area)on 08-05-2023 Epithelial cells Auto (Urine sed) [#/Area] RARE #/LPF NONE/RARE [facility] Automated leukocytes count i n urine sediment (number/area)on 08-05-2023 WBC Auto (Urine sed) [#/Area] NONE SEEN #/HPF 0-2 [facility] Automated urine specific gra vity by refractometryon 08-05-2023 Specific gravity Refractometry automated (U) [Rel density] <=1.005 1.005-1.02 5 [facility] Basophils Auto (Bld) [#/Vol] on 08-05-2023 Basophils (Bld) [#/Vol] 0.1 10 3/uL 0.0-0.1 [facility] Basophils/100 WBC Auto (Bld) on 08-05-2023 Basophils/100 WBC (Bld) 0.7 % 0.2-2.0 [facility] Bilirubin Auto test strip (U ) [Mass/Vol]on 08-05-2023 Bilirubin (U) [Mass/Vol] Negative NEGATIVE [facility] Casts typing in urine sedime nt by light microscopyon 08-05-2023 Casts LM Nom (Urine sed) NONE SEEN #/LPF NONE SEEN [facility] Color Auto (U)on 08-05-2023 Color (U) LT. YELLOW YELLOW [facility] Eosinophils/100 WBC Auto (Bl d)on 08-05-2023 Eosinophils/100 WBC (Bld) 2.5 % 0.9-7.0 [facility] Erythrocyte distribution wid th Auto (RBC) [Ratio]on 08-05-2023 Erythrocyte distribution width (RBC) [Ratio] 16.8 % 11.0-15.0 [facility] Estimated glomerular filtrat ion rate (GFR) non- Americanon 08-05-2023 GFR/1.73 sq M.predicted among non-blacks MDRD (S/P/Bld) [Vol rate/Area] 42 mL/min/{1.73_m2} >=60 [facility] Globulin Calc (S) [Mass/Vol] on 08-05-2023 Globulin (S) [Mass/Vol] 4.1 g/dL [facility] Glucose mean value [Mass/vol ume] in Blood Estimated from glycated hemoglobinon 08-05-2023 Average glucose Estimated from glycated hemoglobin (Bld) [Mass/Vol] 214 mg/dL [facility] Hematocrit Auto (Bld) [Volum e fraction]on 08-05-2023 Hematocrit (Bld) [Volume fraction] 31.8 % 42.0-54.0 [facility] Hemoglobin [Mass/volume] in Bloodon 08-05-2023 Hemoglobin (Bld) [Mass/Vol] 9.4 g/dL 14.0-18.0 [facility] Ketones Auto test strip (U) [Mass/Vol]on 08-05-2023 Ketones (U) [Mass/Vol] Negative NEGATIVE [facility] - Chemistry and C hemistry - challengeon 08-05-2023 Albumin [Mass/Vol] 2.3 g/dL 3.4-5.0 [facility] ALP [Catalytic activity/Vol] 111 U/L 46-116 [facility] ALT [Catalytic activity/Vol] 11 U/L 16-63 [facility] AST [Catalytic activity/Vol] 11 U/L 15-37 [facility] Bilirubin [Mass/Vol] 0.5 mg/dL 0.2-1.0 [facility] Calcium [Mass/Vol] 8.1 mg/dL 8.5-10.1 [facility] Chloride [Moles/Vol] 101 mmol/L 98-107 [facility] CO2 [Moles/Vol] 25.6 mmol/L 21.0-32.0 [facility] Creatinine [Mass/Vol] 1.68 mg/dL 0.70-1.30 [facility] GFR/1.73 sq M.predicted MDRD (S/P/Bld) [Vol rate/Area] 51 mL/min/{1.73_m2} >=60 [facility] Glucose [Mass/Vol] 111 mg/dL 74-106 [facility] Potassium [Moles/Vol] 3.7 mmol/L 3.5-5.1 [facility] Protein [Mass/Vol] 6.4 g/dL 6.4-8.2 [facility] Sodium [Moles/Vol] 138 mmol/L 136-145 [facility] Urea nitrogen [Mass/Vol] 17.0 mg/dL 7.0-18.0 [facility] Urea nitrogen/Creatinine [Mass ratio] 10.1 mg/mg [facility] Laboratory - Hematology and Cell countson 08-05-2023 HbA1c (Bld) [Mass fraction] 9.1 % 4.5-6.2 [facility] Comment on above: ADA RECOMMENDED LIMI T 4.0 - 6.0ADA THERAPEUTIC TARGET < 7.0ACTION SUGGESTED> 7.0 Immature granulocytes/100 WBC (Bld) 0.4 % 0.0-0.5 [facility] Laboratory - Microbiology an d Antimicrobial susceptibilityOrdered By: Jenaro Lynch on 08-05-2023 Microscopic observation Gram stain Nom (Unsp spec) [facility] Leukocytes [#/volume] correc jorge for nucleated erythrocytes in Blood by Automated counon 08-05-2023 WBC corrected for nucl RBC Auto (Bld) [#/Vol] 12.3 10 3/uL 4.0-11.0 [facility] Lymphocytes Auto (Bld) [#/Vo l]on 08-05-2023 Lymphocytes (Bld) [#/Vol] 1.5 10 3/uL 1.2-3.8 [facility] Lymphocytes/100 WBC Auto (Bl d)on 08-05-2023 Lymphocytes/100 WBC (Bld) 11.8 % 20.5-60.0 [facility] MCH Auto (RBC) [Entitic mass ]on 08-05-2023 MCH (RBC) [Entitic mass] 22.4 pg 25.9-34.0 [facility] MCHC Auto (RBC) [Mass/Vol]on 08-05-2023 MCHC (RBC) [Mass/Vol] 29.6 g/dL 29.9-35.2 [facility] MCV Auto (RBC) [Entitic vol] on 08-05-2023 MCV (RBC) [Entitic vol] 75.9 fL 80.0-94.0 [facility] Monocytes Auto (Bld) [#/Vol] on 08-05-2023 Monocytes (Bld) [#/Vol] 1.3 10 3/uL 0.3-0.8 [facility] Monocytes/100 WBC Auto (Bld) on 08-05-2023 Monocytes/100 WBC (Bld) 10.7 % 1.7-12.0 [facility] Mucus LM Ql (Urine sed)on Mucus Ql (Urine sed) NONE SEEN NONE SEEN [facility] Neutrophils Auto (Bld) [#/Vo l]on 08-05-2023 Neutrophils (Bld) [#/Vol] 9.1 10 3/uL 1.4-6.5 [facility] Neutrophils/100 WBC Auto (Bl d)on 08-05-2023 Neutrophils/100 WBC (Bld) 73.9 % 43.0-75.0 [facility] No Panel Informationon 08-04 Eosinophils # (Auto) 0.3 10 3/uL 0.0-0.7 [facility] Immature Granulocyte # (Auto) 0.05 10 3/uL 0.00-0.03 [facility] Platelet mean volume Auto (B ld) [Entitic vol]on 08-05-2023 Platelet mean volume (Bld) [Entitic vol] 11.2 fL 9.5-13.5 [facility] Platelets Auto (Bld) [#/Vol] on 08-05-2023 Platelets (Bld) [#/Vol] 184 10 3/uL 150-450 [facility] Protein Auto test strip (U) [Mass/Vol]on 08-05-2023 Protein (U) [Mass/Vol] Negative NEG/TRACE Fi [facility] RBC Auto (Bld) [#/Vol]on RBC (Bld) [#/Vol] 4.19 10 6/uL 4.70-6.10 [facility] Serum or plasma albumin/glob ulin mass ratioon 08-05-2023 Albumin/Globulin [Mass ratio] 0.6 {ratio} [facility] Serum or plasma anion gap de terminationon 08-05-2023 Anion gap [Moles/Vol] 15.1 mmol/L Fi [facility] Specific gravity Auto test s trip (U) [Rel density]on 08-05-2023 Specific gravity (U) [Rel density] CLEAR CLEAR [facility] Urine bacteria detection by automated methodon 08-05-2023 Bacteria Auto Ql (U) TRACE #/HPF NONE SEEN [facility] Urine glucose measurement by test strip (mass/volume)on 08-05-2023 Glucose Test strip (U) [Mass/Vol] >=1000 mg/dL NEGATIVE [facility] Urine hemoglobin detection b y automated test stripon 08-05-2023 Hemoglobin Auto test strip Ql (U) Negative NEGATIVE [facility] Urine nitrite detection by a utomated test stripon 08-05-2023 Nitrite Auto test strip Ql (U) Negative NEGATIVE [facility] Urine sediment crystal ident ification by light microscopyon 08-05-2023 Crystals LM Nom (Urine sed) None Seen #/HPF None Seen [facility] Urine sediment leukocyte cou nt by microscopy (number/high power field)on 08-05-2023 WBC LM.HPF (Urine sed) [#/Area] NONE SEEN #/HPF NONE SEEN [facility] Urobilinogen Auto test strip (U) [Mass/Vol]on 08-05-2023 Urobilinogen Qn (U) 0.2 {Brendan'U}/dL 0.2-1.0 [facility] pH Auto test strip (U)on pH (U) 6.0 [pH] 5.0-9.0 [facility] Basophils Auto (Bld) [#/Vol] on 08-04-2023 Basophils (Bld) [#/Vol] 0.1 10 3/uL 0.0-0.1 [facility] Basophils/100 WBC Auto (Bld) on 08-04-2023 Basophils/100 WBC (Bld) 0.8 % 0.2-2.0 [facility] Eosinophils/100 WBC Auto (Bl d)on 08-04-2023 Eosinophils/100 WBC (Bld) 2.8 % 0.9-7.0 [facility] Erythrocyte distribution wid th Auto (RBC) [Ratio]on 08-04-2023 Erythrocyte distribution width (RBC) [Ratio] 16.9 % 11.0-15.0 [facility] Estimated glomerular filtrat ion rate (GFR) non- Americanon 08-04-2023 GFR/1.73 sq M.predicted among non-blacks MDRD (S/P/Bld) [Vol rate/Area] 33 mL/min/{1.73_m2} >=60 [facility] Globulin Calc (S) [Mass/Vol] on 08-04-2023 Globulin (S) [Mass/Vol] 4.4 g/dL [facility] Hematocrit Auto (Bld) [Volum e fraction]on 08-04-2023 Hematocrit (Bld) [Volume fraction] 32.6 % 42.0-54.0 [facility] Hemoglobin [Mass/volume] in Bloodon 08-04-2023 Hemoglobin (Bld) [Mass/Vol] 9.6 g/dL 14.0-18.0 [facility] INR in Platelet poor plasma by Coagulation assayon 08-04-2023 INR Coag (PPP) [Relative time] 1.05 {INR} [facility] Comment on above: DESIRED INR:2.0-3.0 CONDITIONS NOT LISTED BELOW2.5-3.5 FOR PROSTHETIC HEART VALVE REPLACEMENT2.5-3.5 [facility] THROMBOSIS Laboratory - Chemistry and C hemistry - challengeon 08-04-2023 Albumin [Mass/Vol] 2.4 g/dL 3.4-5.0 [facility] ALP [Catalytic activity/Vol] 109 U/L 46-116 [facility] ALT [Catalytic activity/Vol] 9 U/L 16-63 [facility] AST [Catalytic activity/Vol] U/L 15-37 [facility] Bilirubin [Mass/Vol] 0.4 mg/dL 0.2-1.0 [facility] Calcium [Mass/Vol] 8.0 mg/dL 8.5-10.1 [facility] Chloride [Moles/Vol] 96 mmol/L 98-107 [facility] CO2 [Moles/Vol] 29.2 mmol/L 21.0-32.0 [facility] Creatinine [Mass/Vol] 2.06 mg/dL 0.70-1.30 [facility] GFR/1.73 sq M.predicted MDRD (S/P/Bld) [Vol rate/Area] 40 mL/min/{1.73_m2} >=60 [facility] Glucose [Mass/Vol] 329 mg/dL 74-106 [facility] Potassium [Moles/Vol] 3.5 mmol/L 3.5-5.1 [facility] Protein [Mass/Vol] 6.8 g/dL 6.4-8.2 [facility] Sodium [Moles/Vol] 132 mmol/L 136-145 [facility] Urea nitrogen [Mass/Vol] 20.0 mg/dL 7.0-18.0 [facility] Urea nitrogen/Creatinine [Mass ratio] 9.7 mg/mg [facility] Laboratory - Hematology and Cell countson 08-04-2023 ESR (Bld) [Velocity] 89 mm/h <=20 [facility] Immature granulocytes/100 WBC (Bld) 0.3 % 0.0-0.5 [facility] Laboratory - Microbiology an d Antimicrobial susceptibilityOrdered By: Jenaro Lynch on 08-04-2023 Microscopic observation Gram stain Nom (Unsp spec) [facility] Leukocytes [#/volume] correc jorge for nucleated erythrocytes in Blood by Automated counon 08-04-2023 WBC corrected for nucl RBC Auto (Bld) [#/Vol] 11.6 10 3/uL 4.0-11.0 [facility] Lymphocytes Auto (Bld) [#/Vo l]on 08-04-2023 Lymphocytes (Bld) [#/Vol] 1.7 10 3/uL 1.2-3.8 [facility] Lymphocytes/100 WBC Auto (Bl d)on 08-04-2023 Lymphocytes/100 WBC (Bld) 14.9 % 20.5-60.0 [facility] MCH Auto (RBC) [Entitic mass ]on 08-04-2023 MCH (RBC) [Entitic mass] 22.3 pg 25.9-34.0 [facility] MCHC Auto (RBC) [Mass/Vol]on 08-04-2023 MCHC (RBC) [Mass/Vol] 29.4 g/dL 29.9-35.2 [facility] MCV Auto (RBC) [Entitic vol] on 08-04-2023 MCV (RBC) [Entitic vol] 75.8 fL 80.0-94.0 [facility] Monocytes Auto (Bld) [#/Vol] on 08-04-2023 Monocytes (Bld) [#/Vol] 1.2 10 3/uL 0.3-0.8 [facility] Monocytes/100 WBC Auto (Bld) on 08-04-2023 Monocytes/100 WBC (Bld) 10.4 % 1.7-12.0 [facility] Neutrophils Auto (Bld) [#/Vo l]on 08-04-2023 Neutrophils (Bld) [#/Vol] 8.2 10 3/uL 1.4-6.5 [facility] Neutrophils/100 WBC Auto (Bl d)on 08-04-2023 Neutrophils/100 WBC (Bld) 70.8 % 43.0-75.0 [facility] No Panel InformationOrdered By: Jenaro Lynch on 08-04-2023 Blood Culture 2 [facility] Blood Culture 1 [facility] Wound Culture [facility] No Panel Informationon 08-03 Aerobic & Anaerobic Susceptibility [facility] Miscellaneous Test Comment See comment [facility] Comment on above: Specimen Source: JONO T - Foot - Foot - 603.950 C-Reactive Protein, Quantitative 11.62 mg/dL <=0.50 [facility] Eosinophils # (Auto) 0.3 10 3/uL 0.0-0.7 [facility] Immature Granulocyte # (Auto) 0.04 10 3/uL 0.00-0.03 [facility] Platelet mean volume Auto (B ld) [Entitic vol]on 08-04-2023 Platelet mean volume (Bld) [Entitic vol] 11.5 fL 9.5-13.5 [facility] Platelets Auto (Bld) [#/Vol] on 08-04-2023 Platelets (Bld) [#/Vol] 206 10 3/uL 150-450 [facility] Prothrombin time (PT)on PT Coag (PPP) [Time] 11.1 s 9.0-11.6 [facility] RBC Auto (Bld) [#/Vol]on RBC (Bld) [#/Vol] 4.30 10 6/uL 4.70-6.10 [facility] Serum or plasma albumin/glob ulin mass ratioon 08-04-2023 Albumin/Globulin [Mass ratio] 0.5 {ratio} [facility] Serum or plasma anion gap de terminationon 08-04-2023 Anion gap [Moles/Vol] 10[facility]3 [facility] Serum procalcitonin measurem enton 08-04-2023 Procalcitonin [Mass/Vol] 0.10 ng/mL 0.00-0.50 [facility] Basophils Auto (Bld) [#/Vol] on 08-03-2023 Basophils (Bld) [#/Vol] 0.1 10 3/uL 0.0-0.1 [facility] Basophils/100 WBC Auto (Bld) on 08-03-2023 Basophils/100 WBC (Bld) 0.7 % 0.2-2.0 [facility] Eosinophils/100 WBC Auto (Bl d)on 08-03-2023 Eosinophils/100 WBC (Bld) 1.8 % 0.9-7.0 [facility] Erythrocyte distribution wid th Auto (RBC) [Ratio]on 08-03-2023 Erythrocyte distribution width (RBC) [Ratio] 17.0 % 11.0-15.0 [facility] Estimated glomerular filtrat ion rate (GFR) non- Americanon 08-03-2023 GFR/1.73 sq M.predicted among non-blacks MDRD (S/P/Bld) [Vol rate/Area] 27 mL/min/{1.73_m2} >=60 [facility] Globulin Calc (S) [Mass/Vol] on 08-03-2023 Globulin (S) [Mass/Vol] 5.0 g/dL [facility] Hematocrit Auto (Bld) [Volum e fraction]on 08-03-2023 Hematocrit (Bld) [Volume fraction] 38.9 % 42.0-54.0 [facility] Hemoglobin [Mass/volume] in Bloodon 08-03-2023 Hemoglobin (Bld) [Mass/Vol] 11.8 g/dL 14.0-18.0 [facility] Laboratory - Chemistry and C hemistry - challengeon 08-03-2023 Lactate [Moles/Vol] 1.6 mmol/L 0.4-2.0 [facility] Albumin [Mass/Vol] 3.3 g/dL 3.4-5.0 [facility] ALP [Catalytic activity/Vol] 134 U/L 46-116 [facility] ALT [Catalytic activity/Vol] 13 U/L 16-63 [facility] AST [Catalytic activity/Vol] U/L 15-37 [facility] Bilirubin [Mass/Vol] 0.6 mg/dL 0.2-1.0 [facility] Calcium [Mass/Vol] 9.3 mg/dL 8.5-10.1 [facility] Chloride [Moles/Vol] 92 mmol/L 98-107 [facility] CO2 [Moles/Vol] 31.0 mmol/L 21.0-32.0 [facility] Creatinine [Mass/Vol] 2.45 mg/dL 0.70-1.30 [facility] GFR/1.73 sq M.predicted MDRD (S/P/Bld) [Vol rate/Area] 33 mL/min/{1.73_m2} >=60 [facility] Glucose [Mass/Vol] 310 mg/dL 74-106 [facility] Potassium [Moles/Vol] 3.7 mmol/L 3.5-5.1 [facility] Protein [Mass/Vol] 8.3 g/dL 6.4-8.2 [facility] Sodium [Moles/Vol] 133 mmol/L 136-145 [facility] Urea nitrogen [Mass/Vol] 23.0 mg/dL 7.0-18.0 [facility] Urea nitrogen/Creatinine [Mass ratio] 9.4 mg/mg [facility] Laboratory - Hematology and Cell countson 08-03-2023 ESR (Bld) [Velocity] 118 mm/h <=20 [facility] Immature granulocytes/100 WBC (Bld) 0.4 % 0.0-0.5 [facility] Leukocytes [#/volume] correc jorge for nucleated erythrocytes in Blood by Automated counon 08-03-2023 WBC corrected for nucl RBC Auto (Bld) [#/Vol] 14.6 10 3/uL 4.0-11.0 [facility] Lymphocytes Auto (Bld) [#/Vo l]on 08-03-2023 Lymphocytes (Bld) [#/Vol] 2.1 10 3/uL 1.2-3.8 [facility] Lymphocytes/100 WBC Auto (Bl d)on 08-03-2023 Lymphocytes/100 WBC (Bld) 14.3 % 20.5-60.0 [facility] MCH Auto (RBC) [Entitic mass ]on 08-03-2023 MCH (RBC) [Entitic mass] 22.6 pg 25.9-34.0 [facility] MCHC Auto (RBC) [Mass/Vol]on 08-03-2023 MCHC (RBC) [Mass/Vol] 30.3 g/dL 29.9-35.2 [facility] MCV Auto (RBC) [Entitic vol] on 08-03-2023 MCV (RBC) [Entitic vol] 74.4 fL 80.0-94.0 [facility] Monocytes Auto (Bld) [#/Vol] on 08-03-2023 Monocytes (Bld) [#/Vol] 1.4 10 3/uL 0.3-0.8 [facility] Monocytes/100 WBC Auto (Bld) on 08-03-2023 Monocytes/100 WBC (Bld) 9.4 % 1.7-12.0 [facility] Neutrophils Auto (Bld) [#/Vo l]on 08-03-2023 Neutrophils (Bld) [#/Vol] 10.7 10 3/uL 1.4-6.5 [facility] Neutrophils/100 WBC Auto (Bl d)on 08-03-2023 Neutrophils/100 WBC (Bld) 73.4 % 43.0-75.0 [facility] No Panel Informationon C-Reactive Protein, Quantitative 14.63 mg/dL <=0.50 [facility] Eosinophils # (Auto) 0.3 10 3/uL 0.0-0.7 [facility] Immature Granulocyte # (Auto) 0.06 10 3/uL 0.00-0.03 [facility] Venous Blood Partial Pressure CO2 44.8 mm[Hg] 40.0-52.0 [facility] Venous Blood pH 7.432 7.330-7.43 0 [facility] No Panel InformationOrdered By: Jenaro Lynch on 08-03-2023 Blood Culture 2 [facility] Blood Culture 1 [facility] Platelet mean volume Auto (B ld) [Entitic vol]on 08-03-2023 Platelet mean volume (Bld) [Entitic vol] 11.4 fL 9.5-13.5 [facility] Platelets Auto (Bld) [#/Vol] on 08-03-2023 Platelets (Bld) [#/Vol] 252 10 3/uL 150-450 [facility] RBC Auto (Bld) [#/Vol]on RBC (Bld) [#/Vol] 5.23 10 6/uL 4.70-6.10 [facility] Serum or plasma albumin/glob ulin mass ratioon 08-03-2023 Albumin/Globulin [Mass ratio] 0.7 {ratio} [facility] [facility] Serum or plasma anion gap de terminationon 08-03-2023 Anion gap [Moles/Vol] 13.7 mmol/L [facility] US venous duplex LE BIon US venous duplex LE BI [facility] [place] [address] Ultrasound Report Signed Patient: Solomon Feldman SR MR#: [id number] : 1965 Acct:[id number] Age/Sex: 57 / M ADM Date: 07/12/23 Loc: ER Room: Type: [facility] ER Attending Dr: Ordering Provider: Nancy [...] Howard Boss MD07/13/2023 11:56 AM Dictation Location: [place] [address] Tech: Nancy Pantoja Transcribed By: BOB 07/13/23 1156 Dictated By: Howard Boss MD 07/13/23 1156 Signed By: 07/13/23 1156 Normal [facility] US venous duplex UE LTon US venous duplex UE LT [facility] Main [place] [id number] Ultrasound Report Signed Patient: Solomon Feldman SR MR#: [id number] : 1965 Acct:[id number] Age/Sex: 57 / M ADM Date: 07/12/23 Loc: ER Room: Type: [facility] ER Attending Dr: Ordering Provider: Nancy [...] Howard Boss MD07/13/2023 11:56 AM Dictation Location: [place] [address] Tech: Nancy Pantoja Transcribed By: BOB 07/13/23 [...] coagulation studies. Please contact the laboratory at [phone] for redraw instructions. Alanine aminotransferase [En zymatic activity/volume] in Serum or PlasmaOrdered By: Nancy Wilson on 07-12-2023 ALT [Catalytic activity/Vol] 9 U/L Normal 7-52 [facility] Comment on above: Performed By: #### P TT, CBC, PT, BNP, CMP, HS TROP, CK #### [facility] [address] Albumin [Mass/volume] in Ser um or Plasma by Bromocresol green (BCG) dye binding methoOrdered By: Nancy Wilson on 07-12-2023 Albumin BCG dye [Mass/Vol] 3.9 g/dL 3.5-5.7 [facility] Alkaline phosphatase [Enzyma tic activity/volume] in Serum or PlasmaOrdered By: Nancy Wilson on 07-12-2023 ALP [Catalytic activity/Vol] 106 U/L High 34-104 [facility] Comment on above: Performed By: #### P TT, CBC, PT, BNP, CMP, HS TROP, CK #### [address] Aspartate aminotransferase [ Enzymatic activity/volume] in Serum or PlasmaOrdered By: Nancy Wilson on 07-12-2023 AST [Catalytic activity/Vol] 8 U/L Low 13-39 [facility] Comment on above: Performed By: #### P TT, CBC, PT, BNP, CMP, HS TROP, CK #### [address] Automated basophil %Ordered By: Nancy Wilson on 07-12-2023 Basophils/100 WBC (Bld) 1.1 % Normal . [facility] Comment on above: Performed By: #### P TT, CBC, PT, BNP, CMP, HS TROP, CK #### [address] Automated basophil countOrde red By: Nancy Wilson on 07-12-2023 Basophils (Bld) [#/Vol] 0.1 10*3/uL Normal 0.0-0.2 [facility] Comment on above: Result Comment: PERF ORMED BY: [place] [address] PATHOLOGIST TRAFFIC OFFICER CLIFFORD LOBATO M.D. Performed By: #### P TT, CBC, PT, BNP, CMP, HS TROP, CK #### [address] Automated blood monocyte cou ntOrdered By: Nancy Wilson on 02-07-2024 Monocytes (Bld) [#/Vol] 1.0 10*3/uL High 0.0-0.8 [facility] Comment on above: Performed By: #### P TT, CBC, PT, BNP, CMP, HS TROP, CK #### [address] Automated eosinophil %Ordere d By: Nancy Wilson on 07-12-2023 Eosinophils/100 WBC (Bld) 3.3 % Normal . [facility] Comment on above: Performed By: #### P TT, CBC, PT, BNP, CMP, HS TROP, CK #### [address] Automated eosinophil countOr dered By: Nancy Wilson on 07-12-2023 Eosinophils (Bld) [#/Vol] 0.3 10*3/uL Normal 0.0-0.45 [facility] Comment on above: Performed By: #### P TT, CBC, PT, BNP, CMP, HS TROP, CK #### [address] Automated monocyte %Ordered By: Nancy Wilson on 07-12-2023 Monocytes/100 WBC (Bld) 10.2 % Normal . [facility] Comment on above: Performed By: #### P TT, CBC, PT, BNP, CMP, HS TROP, CK #### [address] Automated neutrophil %Ordere d By: Nancy Wilson on 07-12-2023 Neutrophils/100 WBC (Bld) 65.4 % Normal . [facility] Comment on above: Performed By: #### P TT, CBC, PT, BNP, CMP, HS TROP, CK #### [address] BNP ser/plasOrdered By: Laith Wilson on 07-12-2023 Natriuretic peptide B (Bld) [Mass/Vol] 34.0 pg/mL Normal 5-100 [facility] Comment on above: Result Comment: PERF ORMED BY: [place] [address] PATHOLOGIST TRAFFIC OFFICER CLIFFORD LOBATO M.D. Performed By: #### P TT, CBC, PT, BNP, CMP, HS TROP, CK #### [facility] [address] Bilirubin.total [Mass/volume ] in Serum or PlasmaOrdered By: Nancy Wilson on 07-12-2023 Bilirubin [Mass/Vol] 0.4 mg/dL Normal 0.3-1.0 [facility] Comment on above: Performed By: #### P TT, CBC, PT, BNP, CMP, HS TROP, CK #### [facility] [address] Calcium [Mass/volume] in Ser um or PlasmaOrdered By: Nancy Wilson on 07-12-2023 Calcium [Mass/Vol] 8.5 mg/dL Low 8.6-10.3 [facility] Comment on above: Performed By: #### P TT, CBC, PT, BNP, CMP, HS TROP, CK #### [address] Carbon dioxide, total [Moles /volume] in Serum or PlasmaOrdered By: Nancy Wilson on 07-12-2023 CO2 [Moles/Vol] 24.5 mmol/L Normal 21.0-31.0 [facility] Comment on above: Performed By: #### P TT, CBC, PT, BNP, CMP, HS TROP, CK #### [address] Chloride [Moles/volume] in S ilia or PlasmaOrdered By: Nancy Wilson on 07-12-2023 Chloride [Moles/Vol] 102 mmol/L Normal 98-107 [facility] Comment on above: Performed By: #### P TT, CBC, PT, BNP, CMP, HS TROP, CK #### [address] Complete Blood Count Auto Di ffon 07-12-2023 Mean Corpuscular HGB Conc 32.4 g/dL Low 32.5-35.6 [facility] Comment on above: Performed By: #### P TT, CBC, PT, BNP, CMP, HS TROP, CK #### [address] Monocytes/100 WBC (Bld) 18.12 % Normal 0.00-20.00 [facility] Comment on above: Performed By: #### P TT, CBC, PT, BNP, CMP, HS TROP, CK #### [address] NRBC% 0.1 /100{WBC} Normal 0-0.5 [facility] Comment on above: Performed By: #### P TT, CBC, PT, BNP, CMP, HS TROP, CK #### [address] Comprehensive Metabolic Pane guy 07-12-2023 Albumin [Mass/Vol] 3.9 g/dL Normal 3.5-5.7 [facility] Comment on above: Performed By: #### P TT, CBC, PT, BNP, CMP, HS TROP, CK #### [address] Creatinine Clr Calc Pharmacy 54.64 Normal [facility] Comment on above: Result Comment: PERF ORMED BY: [place] [address] PATHOLOGIST TRAFFIC OFFICER CLIFFORD LOBATO M.D. Performed By: #### P TT, CBC, PT, BNP, CMP, HS TROP, CK #### [address] GFR/1.73 sq M.predicted MDRD (S/P/Bld) [Vol rate/Area] 42.789 mL/min/{1.73_m2} Normal [facility] Comment on above: Performed By: #### P TT, CBC, PT, BNP, CMP, HS TROP, CK #### [address] Creatine kinase [Enzymatic a ctivity/volume] in Serum or PlasmaOrdered By: Nancy Wilson on 07-12-2023 CK [Catalytic activity/Vol] 55 U/L Normal 30-223 [facility] Comment on above: Performed By: #### P TT, CBC, PT, BNP, CMP, HS TROP, CK #### [facility] [address] Creatinine [Mass/volume] in Serum or PlasmaOrdered By: Nancy Wilson on 07-12-2023 Creatinine [Mass/Vol] 1.82 mg/dL High 0.70-1.30 [facility] Comment on above: Performed By: #### P TT, CBC, PT, BNP, CMP, HS TROP, CK #### [facility] [address] ECG 12 lead ECGon 07-12-2023 ECG 12 lead ECG [facility] Main [place] [address] [place] [address] Electrocardiograph Report Signed Patient: Solomon Feldman SR MR#: [id number] : 1965 Acct:[id number] Age/Sex: 57 / M ADM Date: 07/12/23 Loc: ER Room: Type: [facility] ER Attending Dr: Ordering Provider: Nancy [...] 07/13/2023 1:35:01 AM Referred By: Electronically Signed By:NANYC WILSON MD Transcribed By: MUS Signed By Nancy Wilson MD 01/26 0135 Normal [facility] Erythrocyte distribution wid th [Ratio] by Automated countOrdered By: Nancy Wilson on 07-12-2023 Erythrocyte distribution width (RBC) [Ratio] 17.1 % High 12.0-14.8 [facility] Comment on above: Performed By: #### P TT, CBC, PT, BNP, CMP, HS TROP, CK #### [facility] [address] [place] [address] [place] Erythrocytes [#/volume] in B lood by Automated countOrdered By: Nancy Wilson on 07-12-2023 RBC (Bld) [#/Vol] 4.63 10*6/uL Normal 3.90-5.60 [facility] Comment on above: Performed By: #### P TT, CBC, PT, BNP, CMP, HS TROP, CK #### [facility] [address] Glucose [Mass/volume] in Ser um or PlasmaOrdered By: Nancy Wilson on 07-12-2023 Glucose [Mass/Vol] 302 mg/dL High 70-100 [facility] Comment on above: ADA recommended refe rence rangeRandom Glucose Reference Range is dependent on time and content of last meal. Glucose of more than 200 mg/dL in a nonstressed, ambulatory subject supports the diagnosis of Diabetes Mellitus. Result Comment: Carbon om Glucose Reference Range is dependent on time and content of last meal. Glucose of more than 200 mg/dL in a nonstressed, ambulatory subject supports the diagnosis of Diabetes Mellitus. ADA recommended reference range Performed By: #### P TT, CBC, PT, BNP, CMP, HS TROP, CK #### [facility] [address] [place] [address] [place] Hematocrit [Volume Fraction] of Blood by Automated countOrdered By: Nancy Wilson on 07-12-2023 Hematocrit (Bld) [Volume fraction] 32.7 % Low 38.8-50.0 [facility] Comment on above: Performed By: #### P TT, CBC, PT, BNP, CMP, HS TROP, CK #### [facility] [address] Hemoglobin [Mass/volume] in BloodOrdered By: Nancy Wilson on 07-12-2023 Hemoglobin (Bld) [Mass/Vol] 10.6 g/dL Low 13.0-17.0 [facility] Comment on above: Performed By: #### P TT, CBC, PT, BNP, CMP, HS TROP, CK #### [facility] [address] INR in Platelet poor plasma by Coagulation assayOrdered By: Nancy Wilson on 07-12-2023 INR Coag (PPP) [Relative time] 1.1 {INR} Normal [facility] Comment on above: INR Therapeutic Rang [...] PT, BNP, CMP, HS TROP, CK #### [address] Leukocytes [#/volume] correc jorge for nucleated erythrocytes in Blood by Automated counOrdered By: Nancy Wilson on 07-12-2023 WBC corrected for nucl RBC Auto (Bld) [#/Vol] 9.5 10*3/uL 4.1-10.5 [facility] Leukocytes [#/volume] in Blo od by Automated countOrdered By: Nancy Wilson on 07-12-2023 WBC (Bld) [#/Vol] 9.5 10*3/uL Normal 4.1-10.5 [facility] Comment on above: Performed By: #### P TT, CBC, PT, BNP, CMP, HS TROP, CK #### [address] Lymphocytes [#/volume] in Bl ood by Automated countOrdered By: Nancy Wilson on 07-12-2023 Lymphocytes (Bld) [#/Vol] 1.9 10*3/uL Normal 1.00-4.8 [facility] Comment on above: Performed By: #### P TT, CBC, PT, BNP, CMP, HS TROP, CK #### [facility] [address] [place] [address] Lymphocytes/100 leukocytes i n Blood by Automated countOrdered By: Nancy Wilson on 07-12-2023 Lymphocytes/100 WBC (Bld) 20.0 % Normal . [facility] Comment on above: Performed By: #### P TT, CBC, PT, BNP, CMP, HS TROP, CK #### [address] MCH [Entitic mass] by Automa ojrge countOrdered By: Nancy Wilson on 07-12-2023 MCH (RBC) [Entitic mass] 22.8 pg Low 27.5-35.2 [facility] Comment on above: Performed By: #### P TT, CBC, PT, BNP, CMP, HS TROP, CK #### [address] MCHC Auto (RBC) [Mass/Vol]Or dered By: Nancy Wilson on 07-12-2023 MCHC (RBC) [Mass/Vol] 32.4 g/dL 32.5-35.6 [facility] MCV [Entitic volume] by Auto mated countOrdered By: Nancy Wilson on 07-12-2023 MCV (RBC) [Entitic vol] 70.6 fL Low 83.5-101 [facility] Comment on above: Performed By: #### P TT, CBC, PT, BNP, CMP, HS TROP, CK #### [address] Monocyte distribution width [Entitic volume] in Blood by AutomatedOrdered By: Nancy Wilson on 07-12-2023 Monocyte distribution width Auto (Bld) [Entitic vol] 18.12 % 0.00-20.00 [facility] Neutrophils [#/volume] in Bl ood by Automated countOrdered By: Nancy Wilson on 07-12-2023 Neutrophils (Bld) [#/Vol] 6.2 10*3/uL Normal 1.8-7.7 [facility] Comment on above: Performed By: #### P TT, CBC, PT, BNP, CMP, HS TROP, CK #### [facility] [address] [place] [address] No Panel InformationOrdered By: Nancy Wilson on 07-12-2023 Estimated GFR (CKD-EPI) 42.789 mL/Min [facility] Creatinine Clearance (Chem 54.64 [facility] Nucleated erythrocytes [Pres ence] in Blood by Automated countOrdered By: Nancy Wilson on 07-12-2023 Nucleated RBC Auto Ql (Bld) 0.1 /100{WBC} 0-0.5 [facility] Partial Thromboplastin Timeo n 07-12-2023 aPTT Coag (Bld) [Time] 29.4 s Normal 25.1-36.5 [facility] Comment on above: Result Comment: A he matocrit value greater than 55% may lead to inaccurate results in coagulation testing. Patients having hematocrit values >55% require a special collection tube for coagulation studies. Please contact the laboratory at [phone] for redraw instructions. PERFORMED BY: [place] [address] PATHOLOGIST TRAFFIC OFFICER CLIFFORD LOBATO M.D. Performed By: #### P TT, CBC, PT, BNP, CMP, HS TROP, CK ####[facility] [address] [place] [address] Platelet mean volume [Entiti c volume] in Blood by Automated countOrdered By: Nancy Wilson on 07-12-2023 Platelet mean volume (Bld) [Entitic vol] 9.1 fL Normal 6.6-10.1 [facility] Comment on above: Performed By: #### P TT, CBC, PT, BNP, CMP, HS TROP, CK #### [facility] [address] [place] [address] Platelets [#/volume] in Bloo d by Automated countOrdered By: Nancy Wilson on 07-12-2023 Platelets (Bld) [#/Vol] 233 10*3/uL Normal 150-450 [facility] Comment on above: Performed By: #### P TT, CBC, PT, BNP, CMP, HS TROP, CK #### [facility] [address] Potassium [Moles/volume] in Serum or PlasmaOrdered By: Nancy Wilson on 07-12-2023 Potassium [Moles/Vol] 3.9 mmol/L Normal 3.5-5.1 [facility] Comment on above: Performed By: #### P TT, CBC, PT, BNP, CMP, HS TROP, CK #### [facility] [address] Protein [Mass/volume] in Ser um or PlasmaOrdered By: Nancy Wilson on 07-12-2023 Protein [Mass/Vol] 7.0 g/dL Normal 6.4-8.9 [facility] Comment on above: Performed By: #### P TT, CBC, PT, BNP, CMP, HS TROP, CK #### [address] Prothrombin time (PT)Ordered By: Nancy Wilson on 07-12-2023 PT Coag (PPP) [Time] 12.1 s Normal 9.0-12.9 [facility] Comment on above: A hematocrit value g reater than 55% may lead to inaccurate results in coagulation testing. Patients having hematocrit values >55% require a special collection tube for coagulation studies. Please contact the laboratory at [phone] for redraw instructions. Result Comment: A he matocrit value greater than 55% may lead to inaccurate results in coagulation testing. Patients having hematocrit values >55% require a special collection tube for coagulation studies. Please contact the laboratory at [phone] for redraw instructions. Performed By: #### P TT, CBC, PT, BNP, CMP, HS TROP, CK #### [address] Serum globulin measurement b y calculation (mass/volume)Ordered By: Nancy Wilson on 07-12-2023 Globulin (S) [Mass/Vol] 3.1 g/dL Normal [facility] Comment on above: Performed By: #### P TT, CBC, PT, BNP, CMP, HS TROP, CK #### [address] Serum or plasma albumin/glob ulin mass ratioOrdered By: Nancy Wilson on 07-12-2023 Albumin/Globulin [Mass ratio] 1.3 {ratio} Normal [facility] Comment on above: Performed By: #### P TT, CBC, PT, BNP, CMP, HS TROP, CK #### [address] Serum or plasma anion gap de terminationOrdered By: Nancy Wilson on 07-12-2023 Anion gap [Moles/Vol] 13.4 mmol/L Normal 6.0-15.0 [facility] Comment on above: Performed By: #### P TT, CBC, PT, BNP, CMP, HS TROP, CK #### [address] Sodium [Moles/volume] in Ser um or PlasmaOrdered By: Nancy Wilson on 07-12-2023 Sodium [Moles/Vol] 136 mmol/L Normal 136-145 [facility] Comment on above: Performed By: #### P TT, CBC, PT, BNP, CMP, HS TROP, CK #### [address] Troponin I High Sensitivityo n 07-12-2023 Troponin I High Sensitivity 4.6 pg/mL Normal 0.0-20.0 [facility] Comment on above: Result Comment: PERF ORMED BY: [place] [address] PATHOLOGIST TRAFFIC OFFICER CLIFFORD LOBATO M.D. Performed By: #### P TT, CBC, PT, BNP, CMP, HS TROP, CK #### [address] Troponin I.cardiac [Mass/vol ume] in Serum or Plasma by Detection limit <= 0.01 ng/Ordered By: Nancy Wilson on 07-12-2023 Troponin I.cardiac DL <= 0.01 ng/mL [Mass/Vol] 4.6 pg/mL 0.0-20.0 [facility] Urea nitrogen [Mass/volume] in Serum or PlasmaOrdered By: Nancy Wilson on 07-12-2023 Urea nitrogen [Mass/Vol] 16 mg/dL Normal 7-25 [facility] Comment on above: Performed By: #### P TT, CBC, PT, BNP, CMP, HS TROP, CK #### [facility] [address] XR chest 1V portableon 07-12 XR chest 1V portable [facility] [place] [address] [place] [address] XRay Report Signed Patient: Solomon Feldman SR MR#: [id number] : 1965 Acct:[id number] Age/Sex: 57 / M ADM Date: 07/12/23 [...] Sudeep Lind M.D.07/12/2023 5:08 PM Dictation Location: [place] [address] Transcribed By: [facility] 07/12/23 170 Dictated By: Sudeep Lind DO 07/12/231706 Signed By: 07/12/231707 Normal [facility] Patient Educationon 06-02-20 23 Patient [...] Follow these instructions at home: ? Take cmup-hut-xityeuj and prescription medicines only as told by [...] from the medicine (more content not included)... [facility] Retail - Clinical Noteon Retail - Clinical Note [id number]#1.00TIFF [facility] Urology Office/Clinic Noteon 06-02-2023 Urology Office/Clinic Note Chief Complaint S/p to Cysto HPI Staff Sp to Cysto done [place] [facility]- Has not noticed any difference- [...] Follow-up With When Contact Information SOLEDAD HERRERA, Rigo Blum, [address] [place] [address]- Additional Instructions: 1 month w/ cath volumes [...] heart failure) (more content not included)... [facility] Comment on above: Result Comment: Elec tronically Signed By: Rigo ROWE MD\.br\Date and Time Signed: 06/02/23 12:16 EST\.br\Electronically Co-Signed By: Mattie Foster.br\Date and Time Co-Signed: 06/02/23 12:04 EST Patient Educationon 05-03-[address] [facility] Pathology Noteon 05-01-2023 Pathology Note [id number]#1.00TIFF [facility] Lab Reportson 04-14-2023 Lab Reports [id number]#1.00TIFF [facility] Operative Reporton Operative Report [id number]#1.00TIFF [facility] Patient Correspondenceon Patient Correspondence [id number]#1.00TIFF [facility] Lab Reportson 03-31-2023 Lab Reports [id number]#1.00TIFF [facility] RAD - MISCon 03-31-2023 RAD - MISC [id number]#1.00TIFF [facility] Patient Correspondenceon Patient Correspondence [id number]#1.00TIFF [facility] Formson 03-23-2023 Forms [id number]#1.00TIFF [facility] A1C HEMOGLOBINon 03-15-2023 HbA1c (Bld) [Mass fraction] 7.5 % [employer] Other HbA1c (Bld) [Mass fraction]o n 03-15-2023 A1C HEMOGLOBIN [employer] Other Lab Reportson 03-09-2023 Lab Reports [id number]#1.00TIFF [facility] Consultation Noteon 02-27-20 23 Consultation Note [id number]#1.00CD:[address] [facility] Consent for Procedure/Surger yon 02-15-2023 Consent for Procedure/Surgery [id number]#1.00CD:[address] [facility] Office Visit (Cardiology)on 02-15-2023 Follow-up visit [...] in adult Healthy Weight Tips; Status:Complete; Done: [id number] Patient Instructions Please bring all medicines, vitamins, [...] History of Complete colonoscopy Managed By: Sia HERERRA, (more content not included)... Normal [facility] Tobacco Screening.on 023 Fall risk assessment c) Not medically indicated [facility] y 250 DO Work Phone: Tobacco use status CP b) No [facility] 250 DO Work Phone: Tobacco Screening. Yes [facility] 250 DO Work Phone: Consent for Procedure/Surger yon 02-14-2023 Consent for Procedure/Surgery [id number]#1.00CD:[address] [facility] Consent for Procedure/Surgery [id number]#1.00CD:[address] [facility] Consent for Treatmenton 02-03 Consent for Treatment [id number]#1.00CD:[address] [facility] IntraOperative Documentson 0 02-14-2023 IntraOperative Documents [id number]#1.00CD:[address] [facility] IntraOperative Documents [id number]#1.00CD:[address] [facility] Main [place] Intraoperative Recor don 02-14-2023 Main OR Intraoperative Record IntraOp Document Type FTURO Summary Primary Physician: Rigo ROWE MD Finalized Date/Time: 02/14/23 10:18:58 Pt. Name: MATTEO CHRISTIAN, SOLOMON Aceves/Sex: 1965 Male Med Rec #: [id number] Physician: Rigo ROWE MD Financial #: [id number] Pt. Type: O Room/Bed: / Admit/Disch: 02/14/23 08:34:46 - Institution: Case Times FTURO Entry 1 Patient Times In Room 02/14/23 09:29:00 Out Room 02/14/23 09:49:00 Procedure Times Start 02/14/23 09:42:00 Stop 02/14/23 09:45:00 Anesthesia Times Last Modified By: Mauricio STERN, Chandrika Martin 02/14/23 09:45:24 Case Attendance FTURO Entry 1 Entry 2 Entry 3 Case Attendee SOLEDAD HERRERA, Rigo Martínez RN, Chandrika Yin [facility], Sheri Daniel Role Performed Surgeon - Primary Engine Assembler - Primary Scrub - Primary Time In [...] Description CYSTOSCOPY Primary Procedure Yes Primary Surgeon Rigo ROWE MD Start 02/14/23 09:42:00 Stop 02/14/23 [...] Position Verified Availability Equipment, Medication Time Out Rigo ROWE MD, Verified (If Participants Chandrika Martínez [...] 09:45 Chandrika Martínez RN 02/14/23 10:18 Normal [facility] Main OR Preoperative Recordo n 02-14-2023 Main OR Preoperative Record Holding Area Document Type FTURO Summary Primary Physician: Rigo ROWE MD Finalized Date/Time: 02/14/23 09:01:37 Pt. Name: SOLOMON FELDMAN SR/Sex: 1965 Male Med Rec #: [id number] Physician: Rigo ROWE MD Financial #: [id number] Pt. Type: O Room/Bed: / Admit/Disch: 02/14/23 [...] By: Sheri Bolivar RN 02/14/23 09:01 Normal [facility] Operative Reporton Operative Report Patient: Joe FELDMAN SR Age: 57 years Sex: Male : 1965 Associated Diagnoses: None Author: Rigo ROWE MD Procedure Operative Information Details: Date/ [...] with antibiotic coverage, Follow up arranged. [facility] Comment on above: Result Comment: Elec tronically Signed By: SOLEDAD HERRERA, Rigo Nolasco.livia\Date and Time Signed: 02/14/23 09:52 EDT Patient [...] including vitamins, herbs, eye drops, creams, and xgdi-xke-kszdjqp medicines. ? Any problems you or family [...] tells you to take them. ? Taking pvho-nnb-aayxtxx medicines, vitamins, herbs, and supplements. Surgery safety [...] health care (more content not included)... Normal [facility] Progress Note-Physicianon Progress Note-Physician Patient: SOLOMON FELDMAN SR Age: 57 years Sex: Male : 1965 Associated Diagnoses: None Author: SOLEDAD HERRERA, Rigo Blum X this gentleman has BPH with [...] mg = 1 tab(s), PRN, SubLingual, q5min [place] 325 mg-5 mg oral tablet 1 tab(s), [...] 278.00 / Possible Fibromyalgia / SNOMED CT [id number] / Confirmed Restless leg / ICD-9-CM 333.94 / Confirmed Arthritis / SNOMED CT [id number] IY4D289Q262 / Confirmed Hyperlipidemia / SNOMED CT 29095277 / Confirmed Smoker / SNOMED CT [id number]-P [id number] / Confirmed Added secondary to documentation in Social History. Asthma / SNOMED CT 886220998 / Confirmed COPD type A / SNOMED CT 649624426 / Confirmed Head ache / SNOMED CT 67704970 / Confirmed Heart attack / SNOMED CT 67490114 / Confirmed Heart disease / SNOMED CT 34649013 / Confirmed Heart murmur / SNOMED CT 559461341 / Confirmed Urinary retention / SNOMED CT 099501306 / Confirmed BPH with obstruction/lower urinary tract symptoms / SNOMED CT 6105497774 / Confirmed Orchitis / SNOMED CT 879025424 / Confirmed Gross hematuria / SNOMED CT 646051125 / Confirmed Tobacco use / SNOMED CT [id number]-X0U3-0 31985FY7AC3 / Confirmed Added secondary to social history documentation. Histories Past Medical History: Active Fibromyalgia ([id number]- 3682991A10U7) Restless leg (333.94) Arthritis ([id number]- [id number]) Hyperlipidemia (75457651) Resolved HTN [Hypertension] (401.9): Resolved. NIDDM (250.00): Resolved. GERD [Gastroesophageal reflux disease] (530.81): Resolved. CHF (congestive heart failure) ([id number]- R275825J6B26): Resolved. NJ (myocardial infarction) (086D1LVD-[id number]-9T71- [id number]): Resolved. Family History: Diabetes mellitus Mother Heart disease Mother Alcoholism Brother Drug addiction Brother Acute myocardial infarction Mother Grandparent Procedure history: Bilateral Eye Surgery. Comments: 07/10/2014 17:25 ALESHA Cormeir RN, Kati bilateral cataracts with iol implants Bilateral Carpal Tunnel Surgery. cardiac stents. Appendectomy (051502718). Colonoscopy (587403491). Cataract extraction and insertion of intraocular lens (0825015625). Procedure on back (131066260). Social History Social & Psychosocial Habits Alcohol [...] procedure such (more content not included)... [facility] Comment on above: Result Comment: Elec tronically Signed By: SOLEDAD HERRERA, Rigo Blum\.br\Date and Time Signed: 02/14/23 09:58 EDT Consent for Treatmenton Consent for Treatment [id number]:12 7 [facility] Ambulatory Visit Summaryon 0 01-30-2023 Ambulatory Visit Summary MATTEO CHRISTIAN, SOLOMON Daniel :1965 Visit Date:01/30/2023 Ambulatory Visit Instructions Your Diagnosis Urinary retention Gross hematuria BPH with obstruction/lower urinary tract symptoms Orchitis Your Care Team Attending Physician - SOLEDAD HERRERA, Rigo Blum Primary Care Physician - JENARO LYNCH DO This Is Your Medications List Contact prescribing physician if questions or concerns acetaminophen-hydrocodone ([place] 325 mg-5 mg oral tablet) albuterol (ProAir [...] [facility] [address], [place] [address] [phone] Medications What How Much When Instructions Unchanged acetaminophen-hydrocodone ([place] 325 mg-5 mg oral tablet) 1 Tablets [...] or vivian (more content not included)... [facility] Patient Educationon 01-31-20 23 Patient Education [...] including vitamins, herbs, eye drops, creams, and [id number] medicines. ? Whether you are or may [...] results be (more content not included)... [facility] Urology Office/Clinic Noteon 01-30-2023 Urology Office/Clinic [...] Follow-up With When Contact Information SOLEDAD HERRERA, Rigo Blum, URL [facility] [address], [place] [address] [phone] Additional Instructions: sched cysto/uros Patient Education Urodynamic [...] failure) GERD [Gastroesophageal reflux disease] HTN [Hypertension] NJ (myocardial infarction) NIDDM Procedure/Surgical History Appendectomy, Bilateral [...] mg, BID (more content not included)... [facility] Comment on above: Result Comment: Elec tronically Signed By: Saima Sutton\.br\Date and Time Signed: 01/30/23 11:38 EDT [facility] CARDIAC STRESS/REST INJE CTIONon 01-25-2023 [facility] CARDIAC STRESS/REST INJECTION Patient Name: SOLOMON FELDMAN STUDY: MYOCARDIAL PERFUSION STRESS TEST WITH EXERCISE CONVERTED TO LEXISCAN Performing facility: [facility], [address] [place] [address], [address], [place], [place] [address] Provider: Dolores Feldman RN, PRESIDENT PCP: Dr. Jenaro Lynch Supervising provider: Pascale Arnold MD, [facility] INDICATION: Anginal equivalent CAD; HISTORY: Gender: M; Age: 57 y/o ; Height: 182.88 cm; Weight: 97.7486230 kg. High Cholesterol; CAD; Diabetes; HTN; Palpitations; Chest Pain; Quit smoking unknown years ago. COMPARISON: Previous nuclear testing completed at [facility]. ACCESSION NUMBER(S): [id number]; [id number]; [id number] ORDERING CLINICIAN: DOLORES FELDMAN TECHNIQUE: ONE DAY [...] Health Center No Panel Informationon 01-25 Normal [facility] [address] DO Work Phone: [...] Med Order; Status:Hold For - Scheduling; Requested for:[id number]; Radiologist to Determine Optimal Study : Y [...] contact the office if new symptoms arise. [employer] after procedure Chief Complaint Routine f/u: 'I [...] Cataract surg (more content not included)... Normal [facility] Tobacco Screening.on 023 Adult depression screening assessment No [facility] 600 DO Work Phone: Tobacco use status CPHS b) No [facility] [address] DO Work Phone: Ambulatory Visit Summaryon 0 12-28-2022 Ambulatory Visit Summary MATTEO CHRISTIAN, SOLOMON Daniel :1965 Visit Date:12/28/2022 Ambulatory Visit Instructions Your Care Team Attending Physician - SOLEDAD HERRERA, Rigo Blum Primary Care Physician - JENARO LYNCH DO This Is Your Medications List acetaminophen-hydrocodone ([place] 325 mg-5 mg oral tablet) albuterol (ProAir [...] Monday 10:15 AM EDT With: SOLEDAD HERRERA, Rigo Blum Where: [facility] Alanine aminotransferase [En zymatic activity/volume] in Serum or PlasmaOrdered By: Jenaro Lynch on 09-27-2022 ALT [Catalytic activity/Vol] 15 U/L 7-52 [facility] Albumin [Mass/volume] in Ser um or Plasma by Bromocresol green (BCG) dye binding methoOrdered By: Jenaro Lynch on 09-27-2022 Albumin BCG dye [Mass/Vol] 4.1 g/dL 3.5-5.7 [facility] Alkaline phosphatase [Enzyma tic activity/volume] in Serum or PlasmaOrdered By: Jenaro Lynch on 09-27-2022 ALP [Catalytic activity/Vol] 116 U/L 34-104 [facility] Aspartate aminotransferase [ Enzymatic activity/volume] in Serum or PlasmaOrdered By: Jenaro Lynch on 04-25-2023 AST [Catalytic activity/Vol] 15 U/L 13-39 [facility] Basophils Auto (Bld) [#/Vol] Ordered By: Jenaro Lynch on 09-27-2022 Basophils (Bld) [#/Vol] 0.1 10*3/uL 0.0-0.2 [facility] Basophils/100 WBC Auto (Bld) Ordered By: Jenaro Lynch on 09-27-2022 Basophils/100 WBC (Bld) 1.1 % . [facility] Bilirubin.total [Mass/volume ] in Serum or PlasmaOrdered By: Jenaro Lynch on 09-27-2022 Bilirubin [Mass/Vol] 0.4 mg/dL 0.3-1.0 [facility] Calcium [Mass/volume] in Ser um or PlasmaOrdered By: Jenaro Lynch on 09-27-2022 Calcium [Mass/Vol] 8.8 mg/dL 8.6-10.3 [facility] Carbon dioxide, total [Moles /volume] in Serum or PlasmaOrdered By: Jenaro Lynch on 09-27-2022 CO2 [Moles/Vol] 27.2 mmol/L 21.0-31.0 [facility] Chloride [Moles/volume] in S ilia or PlasmaOrdered By: Jenaro Lynch on 09-27-2022 Chloride [Moles/Vol] 99 mmol/L 98-107 [facility] Cholesterol [Mass/volume] in Serum or PlasmaOrdered By: Jenaro Lynch on 09-27-2022 Cholesterol [Mass/Vol] 104 mg/dL 140-200 [facility] Comment on above: Chol less than 200 m g/dl low riskChol 201-239 mg/dl borderline riskChol 240 mg/dl and greater high risk Cholesterol in LDL Calc [Mas s/Vol]Ordered By: Jenaro Lynch on 09-27-2022 Cholesterol in LDL [Mass/Vol] TNP [facility] Comment on above: Test not performed Cholesterol in LDL [Mass/vol ume] in Serum or PlasmaOrdered By: Jenaro Lynch on 09-27-2022 Cholesterol in LDL [Mass/Vol] 38 mg/dL 0-100 [facility] Comment on above: LDL ATP III CLASSIFI CATIONLDL less than 100 mg/dL OptimalLDL 100-129 mg/dL Near or above optimalLDL 130-159 mg/dL Borderline highLDL 160-189 mg/dL HighLDL greater than 189 mg/dL Very high Cholesterol in VLDL Calc [Ma ss/Vol]Ordered By: Jenaro Lynch on 09-27-2022 Cholesterol in VLDL [Mass/Vol] 99 mg/dL [facility] Creatinine [Mass/volume] in Serum or PlasmaOrdered By: Jenaro Lynch on 09-27-2022 Creatinine [Mass/Vol] 1.84 mg/dL 0.70-1.30 [facility] Eosinophils Auto (Bld) [#/Vo l]Ordered By: Jenaro Lynch on 09-27-2022 Eosinophils (Bld) [#/Vol] 0.7 10*3/uL 0.0-0.45 [facility] Eosinophils/100 WBC Auto (Bl d)Ordered By: Jenaro Lynch on 09-27-2022 Eosinophils/100 WBC (Bld) 5.9 % . [facility] Erythrocyte distribution wid th Auto (RBC) [Ratio]Ordered By: Jenaro Lynch on 09-27-2022 Erythrocyte distribution width (RBC) [Ratio] 16.0 % 12.0-14.8 [facility] Globulin Calc (S) [Mass/Vol] Ordered By: Jenaro Lynch on 09-27-2022 Globulin (S) [Mass/Vol] 2.9 g/dL [facility] Glucose [Mass/volume] in Ser um or PlasmaOrdered By: Jenaro Lynch on 09-27-2022 Glucose [Mass/Vol] 225 mg/dL 70-100 [facility] Comment on above: ADA recommended refe rence rangeRandom Glucose Reference Range is dependent on time and content of last meal. Glucose of more than 200 mg/dL in a nonstressed, ambulatory subject supports the diagnosis of Diabetes Mellitus. Hematocrit Auto (Bld) [Volum e fraction]Ordered By: Jenaro Lynch on 09-27-2022 Hematocrit (Bld) [Volume fraction] 41.0 % 38.8-50.0 [facility] Hemoglobin [Mass/volume] in BloodOrdered By: Jenaro Lynch on 09-27-2022 Hemoglobin (Bld) [Mass/Vol] 13.2 g/dL 13.0-17.0 [facility] Leukocytes [#/volume] correc jorge for nucleated erythrocytes in Blood by Automated counOrdered By: Jenaro Lynch on 09-27-2022 WBC corrected for nucl RBC Auto (Bld) [#/Vol] 12.4 10*3/uL 4.1-10.5 [facility] Lymphocytes Auto (Bld) [#/Vo l]Ordered By: Jenaro Lynch on 09-27-2022 Lymphocytes (Bld) [#/Vol] 2.3 10*3/uL 1.00-4.8 [facility] Lymphocytes/100 WBC Auto (Bl d)Ordered By: Jenaro Lynch on 09-27-2022 Lymphocytes/100 WBC (Bld) 18.2 % . [facility] MCH Auto (RBC) [Entitic mass ]Ordered By: Jenaro Lynch on 09-27-2022 MCH (RBC) [Entitic mass] 23.9 pg 27.5-35.2 [facility] MCHC Auto (RBC) [Mass/Vol]Or dered By: Jenaro Lynch on 09-27-2022 MCHC (RBC) [Mass/Vol] 32.2 g/dL 32.5-35.6 [facility] MCV Auto (RBC) [Entitic vol] Ordered By: Jenaro Lynch on 09-27-2022 MCV (RBC) [Entitic vol] 74.3 fL 83.5-101 [facility] Monocytes Auto (Bld) [#/Vol] Ordered By: Jenaro Lynch on 09-27-2022 Monocytes (Bld) [#/Vol] 1.0 10*3/uL 0.0-0.8 [facility] Monocytes/100 WBC Auto (Bld) Ordered By: Jenaro Lynch on 09-27-2022 Monocytes/100 WBC (Bld) 7.9 % . [facility] Neutrophils Auto (Bld) [#/Vo l]Ordered By: Jenaro Lynch on 09-27-2022 Neutrophils (Bld) [#/Vol] 8.3 10*3/uL 1.8-7.7 [facility] Neutrophils/100 WBC Auto (Bl d)Ordered By: Jenaro Lynch on 09-27-2022 Neutrophils/100 WBC (Bld) 66.9 % . [facility] No Panel InformationOrdered By: Jenaro Lynch on 09-27-2022 Estimated GFR (CKD-EPI) 42.232 mL/Min [facility] Creatinine Clearance (Chem N/A [facility] Nucleated erythrocytes [Pres ence] in Blood by Automated countOrdered By: Jenaro Lynch on 09-27-2022 Nucleated RBC Auto Ql (Bld) 0.1 /100{WBC} 0-0.5 [facility] Platelet mean volume Auto (B ld) [Entitic vol]Ordered By: Jenrao Lynch on 09-27-2022 Platelet mean volume (Bld) [Entitic vol] 9.1 fL 6.6-10.1 [facility] Platelets Auto (Bld) [#/Vol] Ordered By: Jenaro Lynch on 09-27-2022 Platelets (Bld) [#/Vol] 209 10*3/uL 150-450 [facility] Potassium [Moles/volume] in Serum or PlasmaOrdered By: Jenaro Lynch on 09-27-2022 Potassium [Moles/Vol] 4.3 mmol/L 3.5-5.1 [facility] Protein [Mass/volume] in Ser um or PlasmaOrdered By: Jenaro Lynch on 09-27-2022 Protein [Mass/Vol] 7.0 g/dL 6.4-8.9 [facility] RBC Auto (Bld) [#/Vol]Ordere d By: Jenaro Lynch on 09-27-2022 RBC (Bld) [#/Vol] 5.52 10*6/uL 3.90-5.60 [facility] Serum or plasma albumin/glob ulin mass ratioOrdered By: Jenaro Lynch on 09-27-2022 Albumin/Globulin [Mass ratio] 1.4 {ratio} [facility] Serum or plasma anion gap de terminationOrdered By: Jenaro Lynch on 09-27-2022 Anion gap [Moles/Vol] 14.1 mmol/L 6.0-15.0 [facility] Serum or plasma high density lipoprotein (HDL) cholesterol measurementOrdered By: Jenaro Lynch on 09-27-2022 Cholesterol in HDL [Mass/Vol] 21 mg/dL 29-71 [facility] Comment on above: HDL CHOL ATP-III CLA SSIFICATION Cardiovascular RiskHDL > or equal to 60 mg/dL LOWHDL < 40 mg/dL HIGH Serum or plasma total choles terol/high density lipoprotein (HDL) cholesterol mass ratOrdered By: Jenaro Lynch on 09-27-2022 Cholesterol.total/Chol esterol in HDL [Mass ratio] 5.0 {ratio} <5.0 [facility] Sodium [Moles/volume] in Ser um or PlasmaOrdered By: Jenaro Lynch on 09-27-2022 Sodium [Moles/Vol] 136 mmol/L 136-145 [facility] Thyrotropin [Units/volume] i n Serum or PlasmaOrdered By: Jenaro Lynch on 09-27-2022 TSH Qn 3.62 m[IU]/L 0.45-5.33 [facility] Triglyceride [Mass/volume] i n Serum or PlasmaOrdered By: Jenaro Lynch on 09-27-2022 Triglyceride [Mass/Vol] 497 mg/dL 0-149 [facility] Comment on above: If the triglyceride [...] on 09-27-2022 Urate [Mass/Vol] 6.2 mg/dL 2.4-7.6 [facility] Urea nitrogen [Mass/volume] in Serum or PlasmaOrdered By: Jenaro Lynch on 09-27-2022 Urea nitrogen [Mass/Vol] 15 mg/dL 12-27 [facility] WBC Auto (Bld) [#/Vol]Ordere d By: Jenaro Lynch on 09-27-2022 WBC (Bld) [#/Vol] 12.4 10*3/uL 4.1-10.5 [facility] A1C HEMOGLOBINon 02-15-2022 HbA1c (Bld) [Mass fraction] % [employer] Other HbA1c (Bld) [Mass fraction]o n 02-15-2022 A1C HEMOGLOBIN [employer] Other Tobacco Screening.on 022 Adult depression screening assessment No -[facility] [address] DO Work Phone: Tobacco use status CPHS b) No -[facility] [address] DO Work Phone: A1C HEMOGLOBINon 07-27-2021 HbA1c (Bld) [Mass fraction] 11.8 % [employer] Other HbA1c (Bld) [Mass fraction]o n 07-27-2021 A1C HEMOGLOBIN [employer] Other Vital Signs Date Time Vital Sign Value Performing Clinician Facility 10-24-2023 10:56-0400 Body height 182.9 cm Raulito Inman MD Work Phone: [facility] 10-24-2023 10:56-0400 Diastolic blood pressure 86 mm[Hg] Raulito Inman MD Work Phone: [facility] 10-24-2023 10:56-0400 Heart rate 104 /min Raulito Inman MD Work Phone: [facility] 10-24-2023 10:56-0400 Systolic blood pressure 134 mm[Hg] Raulito Inman MD Work Phone: [facility] 10-23-2023 09:37-0400 Blood Pressure Location Padmini Montes [facility] 10-23-2023 09:37-0400 Diastolic blood pressure 82 mm[Hg] Padmini Montes [facility] 10-23-2023 09:37-0400 Heart rate 107 /min Padmini Montes [facility] 10-23-2023 09:37-0400 SaO2% (BldA) [Mass fraction] 98 % Padmini Montes [facility] 10-23-2023 09:37-0400 Systolic blood pressure 130 mm[Hg] Padmini Montes [facility] 07-31-2023 12:00-0500 Diastolic blood pressure 63 mm[Hg] DO Jenaro Kuns Work Phone: [facility] 07-31-2023 12:00-0500 Heart rate 75 /min DO Jenaro Kuns Work Phone: [facility] 07-31-2023 12:00-0500 Systolic blood pressure 108 mm[Hg] DO Jenaro Kuns Work Phone: [facility] 07-31-2023 08:33-0500 Respiratory rate 18 /min DO Jenaro Kuns Work Phone: [facility] 07-12-2023 18:03-0500 Diastolic blood pressure 73 mm[Hg] DO Jenaro Kuns Work Phone: [facility] 07-12-2023 18:03-0500 Heart rate 76 /min DO Jenaro Kuns Work Phone: [facility] 07-12-2023 18:03-0500 Respiratory rate 20 /min DO Jenaro Kuns Work Phone: [facility] 07-12-2023 18:03-0500 SaO2% (BldA) [Mass fraction] 98 % DO Jenaro Kuns Work Phone: [facility] 07-12-2023 18:03-0500 Systolic blood pressure 125 mm[Hg] DO Jenaro Kuns Work Phone: [facility] 07-12-2023 16:15-0500 Body height 182.88 cm DO Jenaro Kuns Work Phone: [facility] 07-12-2023 16:15-0500 Body temperature 98.9 [degF] DO Jenaro Lynch Work Phone: [facility] 07-12-2023 16:15-0500 Body weight 99.25 kg DO Jenaro Lynch Work Phone: [facility] 06-02-2023 10:56-0500 Blood Pressure Location Rigo ROWE [facility] 06-02-2023 10:56-0500 Body temperature 96.98 [degF] Rigo ROWE [facility] 06-02-2023 10:56-0500 Diastolic blood pressure 84 mm[Hg] Rigo ROWE [facility] 06-02-2023 10:56-0500 Heart rate 68 /min Rigo ROWE [facility] 06-02-2023 10:56-0500 Systolic blood pressure 124 mm[Hg] Rigo ROWE [facility] 04-06-2023 13:15-0400 Body height 180.34 cm Jenaro Lynch Other [employer] Other 04-06-2023 13:15-0400 Body mass index (BMI) [Ratio] 29.43 kg/m2 Jenaro Lynch Other [employer] Other 04-06-2023 13:15-0400 Body weight 95.71 kg Jenaro Lynch Other [employer] Other 04-06-2023 13:15-0400 Diastolic blood pressure 70 mm[Hg] Jenaro Lynch Other [employer] Other 04-06-2023 13:15-0400 Respiratory rate 18 /min Jenaro Lynch Other [employer] Other 04-06-2023 13:15-0400 SaO2% (BldA) [Mass fraction] 97 % Jenaro Lynch Other [employer] Other 04-06-2023 13:15-0400 Systolic blood pressure 100 mm[Hg] Jenaro Lynch Other [employer] Other 03-15-2023 08:30-0400 Body height 180.34 cm Jenaro Lynch Other [employer] Other 03-15-2023 08:30-0400 Body mass index (BMI) [Ratio] 29.01 kg/m2 Jenaro Lynch Other [employer] Other 03-15-2023 08:30-0400 Body weight 94.35 kg Jenaro Lynch Other [employer] Other 03-15-2023 08:30-0400 Diastolic blood pressure 62 mm[Hg] Jenaro Lynch Other [employer] Other 03-15-2023 08:30-0400 Respiratory rate 16 /min Jenaro Lynch Other [employer] Other 03-15-2023 08:30-0400 SaO2% (BldA) [Mass fraction] 97 % Jenaro Lynch Other [employer] Other 03-15-2023 08:30-0400 Systolic blood pressure 88 mm[Hg] Jenaro Lynch Other [facility] [employer] Other 02-15-2023 10:04-0400 Body height 182.88 cm Jenaro Lynch Work Phone: [facility] 250 DO Work Phone: 02-15-2023 10:04-0400 Body mass index (BMI) [Ratio] 28.62 kg/m2 Jenaro Lynch Work Phone: [facility] 250 DO Work Phone: 02-15-2023 10:04-0400 Body surface area Derived from formula 2.18 m2 Jenaro Lynch Work Phone: [facility] 250 DO Work Phone: 02-15-2023 10:04-0400 Body weight 95.71 kg Jenaro Lynch Work Phone: [facility] 250 DO Work Phone: 02-15-2023 10:04-0400 Diastolic blood pressure 70 mm[Hg] Jenaro Lynch Work Phone: [facility] 250 DO Work Phone: 02-15-2023 10:04-0400 Heart rate 76 /min Jenaro Lynch Work Phone: [facility] 250 DO Work Phone: 02-15-2023 10:04-0400 Systolic blood pressure 102 mm[Hg] Jenaro Lynch Work Phone: [facility] 250 DO Work Phone: 01-30-2023 10:23-0400 Blood Pressure Location Rigo SOLEDAD [facility] 01-30-2023 10:23-0400 Diastolic blood pressure 74 mm[Hg] Rigo ROWE [facility] 01-30-2023 10:23-0400 Heart rate 68 /min Rigo ROWE [facility] 01-30-2023 10:23-0400 Respiratory rate 16 /min Rigo ROWE [facility] 01-30-2023 10:23-0400 Systolic blood pressure 130 mm[Hg] Rigo ROWE [facility] 01-11-2023 15:08-0400 Body height 180.34 cm Jenaro Lynch Work Phone: [facility] 600 DO Work Phone: 01-11-2023 15:08-0400 Body mass index (BMI) [Ratio] 30.13 kg/m2 Jenaro Lynch Work Phone: [facility] 600 DO Work Phone: 01-11-2023 15:08-0400 Body surface area Derived from formula 2.18 m2 Jenaro Lynch Work Phone: [facility] 600 DO Work Phone: 01-11-2023 15:08-0400 Body weight 97.98 kg Jenaro Lynch Work Phone: [facility] 600 DO Work Phone: 01-11-2023 15:08-0400 Diastolic blood pressure 86 mm[Hg] Jenaro Lynch Work Phone: [facility] 600 DO Work Phone: 01-11-2023 15:08-0400 Heart rate 74 /min Jenaro Lynch Work Phone: [facility] [employer] 600 DO Work Phone: 01-11-2023 15:08-0400 Systolic blood pressure 122 mm[Hg] Jenaro Lynch Work Phone: [facility] [employer] 600 DO Work Phone: 12-01-2022 12:45-0400 Body height 180.34 cm Jenaro Lynch Other [employer] Other 12-01-2022 12:45-0400 Body mass index (BMI) [Ratio] 29.73 kg/m2 Jenaro Lynch Other [employer] Other 12-01-2022 12:45-0400 Body weight 96.71 kg Jenaro Lynch Other [employer] Other 12-01-2022 12:45-0400 Diastolic blood pressure 70 mm[Hg] Jenaro Lynch Other [employer] Other 12-01-2022 12:45-0400 Respiratory rate 18 /min Jenaro Lynch Other [employer] Other 12-01-2022 12:45-0400 SaO2% (BldA) [Mass fraction] 94 % Jenaro Lynch Other [employer] Other 12-01-2022 12:45-0400 Systolic blood pressure 122 mm[Hg] Jenaro Lynch Other [employer] Other 11-23-2022 11:38-0400 Blood Pressure Location Rigo ROWE [facility] 11-23-2022 11:38-0400 Diastolic blood pressure 85 mm[Hg] Rigo ROWE [facility] 11-23-2022 11:38-0400 Heart rate 76 /min Rigo ROWE [facility] 11-23-2022 11:38-0400 Systolic blood pressure 130 mm[Hg] Rigo ROWE [facility] 07-04-2022 10:30-0500 Body height 180.34 cm Jenaro Lynch Other [employer] [facility] [employer] Other 07-04-2022 10:30-0500 Body mass index (BMI) [Ratio] 29.43 kg/m2 Jenaro Lynch Other [employer] Other 07-04-2022 10:30-0500 Body weight 95.71 kg Jenaro Lynch Other [employer] Other 07-04-2022 10:30-0500 Diastolic blood pressure 86 mm[Hg] Jenaro Lynch Other [employer] Other 07-04-2022 10:30-0500 Respiratory rate 16 /min Jenaro Lynch Other [employer] Other 07-04-2022 10:30-0500 Systolic blood pressure 146 mm[Hg] Jenaro Lynch Other [employer] Other 02-15-2022 13:45-0400 Body height 180.34 cm Jenaro Lynch Other [employer] Other 02-15-2022 13:45-0400 Body mass index (BMI) [Ratio] 30.12 kg/m2 Jenaro Lynch Other [employer] Other 02-15-2022 13:45-0400 Body weight 97.98 kg Jenaro Lynch Other [employer] Other 02-15-2022 13:45-0400 Diastolic blood pressure 62 mm[Hg] Jenaro Lynhc Other [employer] Other 02-15-2022 13:45-0400 Respiratory rate 16 /min Jenaro Lynch Other [employer] Other 02-15-2022 13:45-0400 SaO2% (BldA) [Mass fraction] 96 % Jenaro Lynch Other [employer] Other 02-15-2022 13:45-0400 Systolic blood pressure 100 mm[Hg] Jenaro Lynch Other [employer] Other 10-26-2021 10:01-0400 Body height 180.34 cm Jenaro Lynch Work Phone: [facility] [employer] 250 DO Work Phone: 10-26-2021 10:01-0400 Body mass index (BMI) [Ratio] 29.99 kg/m2 Jenaro Lynch Work Phone: [facility] [employer] 250 DO Work Phone: 10-26-2021 10:01-0400 Body surface area Derived from formula 2.17 m2 Jenaro Lynch Work Phone: [facility] [employer] 250 DO Work Phone: 10-26-2021 10:01-0400 Body weight 97.52 kg Jenaro Lynch Work Phone: [facility] 250 DO Work Phone: 10-26-2021 10:01-0400 Diastolic blood pressure 70 mm[Hg] Jenaro Lynch Work Phone: [facility] 250 DO Work Phone: 10-26-2021 10:01-0400 Heart rate 68 /min Jenaro Lynch Work Phone: [facility] 250 DO Work Phone: 10-26-2021 10:01-0400 Systolic blood pressure 104 mm[Hg] Jenaro Lynch Work Phone: [facility] 250 DO Work Phone: 10-19-2021 12:20-0400 Body height 180.34 cm Amina [employer] Other [facility] [employer] Other 10-19-2021 12:20-0400 Body mass index (BMI) [Ratio] 30.65 kg/m2 [employer] Other [employer] Other 10-19-2021 12:20-0400 Body temperature 96.8 [degF] Amina [employer] Other [employer] Other 10-19-2021 12:20-0400 Body weight 99.7 kg [employer] Other [employer] Other 10-19-2021 12:20-0400 Diastolic blood pressure 71 mm[Hg] [employer] Other [employer] Other 10-19-2021 12:20-0400 Respiratory rate 18 /min [employer] Other [employer] Other 10-19-2021 12:20-0400 SaO2% (BldA) [Mass fraction] 98 % Amina Fagan Other [employer] Other 10-19-2021 12:20-0400 Systolic blood pressure 111 mm[Hg] Amina Fagan Other [employer] Other 07-27-2021 14:00-0500 Body height 180.34 cm Jenaro Lynch Other [employer] Other 07-27-2021 14:00-0500 Body mass index (BMI) [Ratio] 30.4 kg/m2 Jenaro Lynch Other [employer] Other 07-27-2021 14:00-0500 Body weight 98.88 kg Jenaro Lynch Other [employer] Other 07-27-2021 14:00-0500 Diastolic blood pressure 76 mm[Hg] Jenaro Lynch Other [employer] Other 07-27-2021 14:00-0500 Respiratory rate 18 /min Jenaro Lynch Other [employer] Other 07-27-2021 14:00-0500 SaO2% (BldA) [Mass fraction] 98 % Jenaro Lynch Other [employer] Other 07-27-2021 14:00-0500 Systolic blood pressure 112 mm[Hg] Jenaro Lynch Other [employer] Other Encounters Encounter Date Encounter Type Care Provider Facility Start: 02-12-2024 ambulatory Rigo Ley ty:[facility] Start: 12-21-2023 End: 12-21-2023 ambulatory [facility] Start: 12-15-2023 End: 12-15-2023 ambulatory DO Jenaro Kuns Work Phone: [facility] Work Phone: Start: 12-15-2023 End: 12-15-2023 Departed Referred DO Jenaro Kuns Work Phone: [facility] Start: 12-10-2023 Non-patient / Non-visit DO Phillip an Kuns Work Phone: [facility] Work Phone: Start: 12-09-2023 Non-patient / Non-visit DO Phillip an Kuns Work Phone: [facility] Work Phone: Start: 11-30-2023 End: 11-30-2023 ambulatory [facility] Start: 11-26-2023 Non-patient / Non-visit DO Phillip an Kuns Work Phone: [facility] Work Phone: Start: 11-23-2023 End: 11-23-2023 ambulatory [facility] Start: 11-15-2023 End: 11-15-2023 ambulatory MAAME Hooker [facility] Start: 11-15-2023 Non-patient / Non-visit DO Phillip an Kuns Work Phone: [facility] Work Phone: Start: 11-14-2023 End: 11-14-2023 Evaluation and management of inpatient [facility] Start: 11-07-2023 End: 11-14-2023 Evaluation and management of inpatient [facility] Start: 11-07-2023 End: 11-14-2023 Evaluation [facility] management [facility] Start: 10-24-2023 End: 10-24-2023 ambulatory [facility] Ambulatory Start: 10-24-2023 End: 10-24-2023 Encounter for preprocedural cardiovascular examination [facility] Start: 10-24-2023 End: 10-24-2023 Office outpatient visit 25 minutes Raulito Inman MD Work Phone: [facility] Comment on above: History of PTCA; Hyperlipidemia, unspecified hyperlipidemia type; Encounter for pre-operative cardiovascular clearance; Former smoker Start: 10-24-2023 End: 10-24-2023 Patient encounter status Raulito Inman MD Work Phone: [facility] Work Phone: Start: 10-23-2023 End: 10-23-2023 ambulatory XXXX NONE Facility:[facility] Start: 10-23-2023 End: 10-23-2023 Patient encounter procedure Padmini Montes [facility] Start: 10-19-2023 End: 10-20-2023 ambulatory Padmini Montes Facility:[facility] Start: 10-19-2023 ambulatory Padmini Montes Facili ty:[facility] Start: 10-19-2023 End: 10-19-2023 Patient encounter procedure Padmini Montes [facility] Start: 10-18-2023 End: 10-18-2023 [facility] Start: 10-06-2023 Non-patient / Non-visit DO Phillip Lynch Work Phone: [facility] Work Phone: Start: 10-05-2023 End: 10-05-2023 ambulatory DO Jenaro Lynch Work Phone: [facility] Work Phone: Start: 10-05-2023 End: 10-05-2023 Departed Referred DO Jenarogorge Fraustos Work Phone: [facility] Start: 10-05-2023 Non-patient / Non-visit DO Phillip an Kuns Work Phone: [facility] Work Phone: Start: 10-04-2023 Non-patient / Non-visit DO Phillip an Kuns Work Phone: [facility] Work Phone: Start: 10-03-2023 Non-patient / Non-visit DO Phillip an Kuns Work Phone: [facility] Work Phone: Start: 10-02-2023 End: 10-02-2023 ambulatory DO Jenarogorge Fraustos Work Phone: [facility] Work Phone: Start: 10-02-2023 End: 10-02-2023 Departed Referred DO Jenaro Jetts Work Phone: [facility]-LAB Path Spec [facility] Start: 10-02-2023 Non-patient / Non-visit DO Pihllip an Kuns Work Phone: [facility] Work Phone: Start: 10-01-2023 Non-patient / Non-visit DO Phillip an Kuns Work Phone: [facility] Work Phone: Start: 09-30-2023 Non-patient / Non-visit DO Phillip an Kuns Work Phone: [facility] Work Phone: Start: 09-27-2023 Non-patient / Non-visit DO Phillip an Kuns Work Phone: [facility] Work Phone: Start: 09-21-2023 End: 09-21-2023 ambulatory DO Jenaro Kuns Work Phone: [facility] Work Phone: Start: 09-21-2023 End: 09-21-2023 Departed Referred DO Jenaro Kuns Work Phone: [facility] Start: 09-21-2023 Non-patient / Non-visit DO Phillip an Kuns Work Phone: [facility] Work Phone: Start: 09-18-2023 Non-patient / Non-visit DO Phillip an Kuns Work Phone: [facility] Work Phone: Start: 09-08-2023 End: 09-08-2023 ambulatory Rigo ROWE Facility:[facility] Start: 09-08-2023 End: 09-08-2023 Patient encounter procedure Rigo ROWE [facility] Start: 08-10-2023 Non-patient / Non-visit DO Phillip an Kuns Work Phone: [facility] Work Phone: Start: 08-08-2023 Non-patient / Non-visit DO Phillip an Kuns Work Phone: [facility] Work Phone: Start: 08-07-2023 Non-patient / Non-visit DO Phillip an Kuns Work Phone: [facility] Work Phone: Start: 08-06-2023 Non-patient / Non-visit DO Phillip an Kuns Work Phone: [facility] Work Phone: Start: 08-05-2023 Non-patient / Non-visit DO Phillip an Jetts Work Phone: [facility] Work Phone: Start: 08-04-2023 Non-patient / Non-visit DO Phillip an Kuns Work Phone: [facility] Work Phone: Start: 08-03-2023 Non-patient / Non-visit DO Phillip an Jetts Work Phone: [facility] Work Phone: Start: 07-31-2023 Registered Recurring DO Jenaro Fraustos Work Phone: [facility]-Infusion Therapy - O/P Work Phone: Start: 07-31-2023 ambulatory Jenaro Lynch Facility:[facility] Start: 07-26-2023 Non-patient / Non-visit DO Phillip Fraustos Work Phone: [facility] Work Phone: Start: 07-12-2023 End: 07-12-2023 Emergency department patient visit DO Jenaro Lynch Work Phone: [facility]-Emergency Room Work Phone: Start: 07-07-2023 End: 07-07-2023 ambulatory Jenaro Lynch Other [facility] [employer] Other Start: 07-07-2023 Telephone encounter Jenaro Lynch [facility] [place] Start: 07-03-2023 End: 07-03-2023 ambulatory Rigo ROWE Facility:[facility] Start: 06-26-2023 End: 06-26-2023 ambulatory Jenaro Lynch Other [facility] [employer] Other Start: 06-26-2023 Telephone encounter Jen[address]ogorge Fraustojoe [facility] Start: 06-02-2023 End: 06-02-2023 ambulatory Rigo ROWE Facility:[facility] Start: 06-02-2023 End: 06-02-2023 Patient encounter procedure Rigo Viktoria ROWE [facility] Start: 05-16-2023 End: 05-16-2023 ambulatory Jenarogorge Lynch Other [employer] Other Start: 05-16-2023 Telephone encounter Jenaro Syed [facility] Start: 05-03-2023 End: 05-03-2023 ambulatory Rigo ROWE Facility:[facility] Start: 05-03-2023 End: 05-03-2023 Patient encounter procedure Rigo Viktoria [facility]EDAD [facility] Start: 04-28-2023 End: 04-28-2023 ambulatory Jenaro Jettjoe Other [employer] Other Start: 04-28-2023 Telephone encounter Jenaro Syed [facility] Start: 04-18-2023 End: 04-18-2023 ambulatory Rigo ROWE Facility:[facility] Start: 04-18-2023 End: 04-18-2023 Patient encounter procedure Rigo Viktoria SOLEDAD [facility] Start: 04-17-2023 ambulatory Rigo ROWE Facili ty:[facility] Start: 04-13-2023 End: 04-13-2023 ambulatory Rigo ROWE Facility:[id number] Start: 04-11-2023 End: 04-11-2023 ambulatory Jenaro Lynch Other [employer] Other Start: 04-11-2023 Telephone encounter Jenaro Lynch [facility] [place] Start: 04-06-2023 End: 04-06-2023 ambulatory Jenaro Lynch Other [employer] Other Start: 04-06-2023 Encounter for other preprocedural examination Jenarogorge Lynch [facility] [place] Start: 04-06-2023 Office outpatient vi sit 25 minutes Jenaro Lynch [facility] [place] Start: 03-28-2023 End: 03-28-2023 ambulatory Jenarogorge Lynch Other [employer] Other Start: 03-28-2023 Telephone encounter [facility] Start: 03-20-2023 ambulatory Rigo ROWE Facili ty:[facility] Start: 03-15-2023 End: 03-15-2023 ambulatory Rigo ROWE [facility] [employer] Other Start: 03-15-2023 Office outpatient vi sit 25 minutes Jenarogorge [facility] Start: 03-10-2023 End: 03-10-2023 ambulatory Jenaro Jettjoe Other [employer] Other Start: 03-10-2023 Telephone encounter [facility] Start: 02-15-2023 Office outpatient vi sit 15 minutes Jenaro Lynch Work Phone: [facility] 250 DO Work Phone: Start: 02-15-2023 ambulatory Dolores Feldman Facility:[id number] Start: 02-14-2023 End: 02-14-2023 ambulatory Rigo ROWE Facility[facility] Start: 02-14-2023 End: 02-14-2023 Patient encounter procedure Rigo ROWE [facility] Start: 02-08-2023 End: 02-08-2023 ambulatory Rigo ROWE Facility:[facility] Start: 02-08-2023 End: 02-08-2023 Patient encounter procedure Rigo R SOLEDAD [facility] Start: 01-30-2023 End: 01-30-2023 ambulatory Rigo Viktoria ROWE Facility:[facility] Start: 01-30-2023 End: 01-30-2023 Patient encounter procedure Rigo R ROWE [facility] Start: 01-25-[address] Jenaro Lynch Facility:[id number] Start: 01-17-2023 End: 01-17-2023 ambulatory Jenaro Lynch Other [employer] Other Start: 01-17-[address]23 [address] Jenaro Lynch [facility] Start: 01-11-2023 Office outpatient vi sit 25 minutes Jenaro Lynch Work Phone: [facility] 600 DO Work Phone: Start: 01-11-2023 ambulatory Dolores Feldman Facility:[id number] Start: 12-28-2022 End: 12-28-2022 ambulatory Rigo ROWE Facility:[facility] Start: 12-28-2022 End: 12-28-2022 Patient encounter procedure Rigo R SOLEDAD [facility] [place] Start: 12-21-2022 ambulatory Rigo ROWE Facili ty:[facility] [place] Start: 12-01-2022 End: 12-01-2022 ambulatory Jenaro Lynch Other [employer] Other Start: 12-01-2022 Office outpatient vi sit [address] [facility] Start: 11-30-2022 ambulatory Rigo ROWE Facility :[facility] Start: 11-23-2022 End: 11-23-2022 Patient encounter procedure Rigo Blum SOLEDAD [facility] Start: 10-07-2022 End: 10-07-2022 ambulatory Jenaro Lynch Other [employer] Other Start: 10-07-2022 Telephone encounter Jenaro Lynch [facility] [place] Start: 09-27-2022 End: 09-27-2022 ambulatory DO Jenaro Lynch Work Phone: [facility] Work Phone: Start: 09-27-2022 End: 09-27-2022 Patient encounter procedure DO Jenaro Lynch Work Phone: [facility] [place] Work Phone: Start: 09-21-2022 End: 09-21-2022 ambulatory Jenaro Lynch Other [employer] Other Start: 09-21-2022 Telephone encounter Jenaro Lynch [facility] [place] Start: 09-14-2022 End: 09-14-2022 ambulatory Jenaro Lynch Other [employer] Other Start: 09-14-2022 Telephone encounter Jenaro Lynch [facility] [place] Start: 09-02-2022 End: 09-02-2022 Patient encounter procedure DO Jenaro Lynch Work Phone: [facility] [place] Work Phone: Start: 08-25-2022 End: 08-25-2022 ambulatory Tondra Marianous Other [employer] Other Start: 08-25-2022 Telephone encounter Doris Barnes [facility] [employer] Start: 08-22-2022 End: 08-22-2022 ambulatory Jenaro Lynch Other [employer] Other Start: 08-22-2022 Telephone encounter Jenaro Lynch [facility] [place] Start: 08-05-2022 End: 08-05-2022 ambulatory Jenarogorge Lynch Other [employer] Other Start: 08-05-2022 Telephone encounter Jenarogorge Lynch [facility] [place] Start: 08-04-2022 End: 08-04-2022 ambulatory Jenarogorge Lynch Other [employer] Other Start: 08-04-2022 Telephone encounter Jenaro Lynch [facility] [place] Start: 07-28-2022 End: 07-28-2022 ambulatory Jenarogorge Lynch Other [employer] Other Start: 07-28-2022 Telephone encounter Jenaro Lynch [facility] [employer] Start: 07-25-2022 End: 07-25-2022 ambulatory Jenarogorge Lynch Other [employer] Other Start: 07-25-2022 Nursing evaluation o f patient and report Jenarogorge Lynch [facility] [place] Start: 07-19-2022 End: 07-19-2022 ambulatory Jenarogorge Lynch Other [employer] Other Start: 07-19-2022 Telephone encounter Jenaro Lynch [facility] [place] Start: 07-15-2022 End: 07-15-2022 ambulatory Jenarogorge Lynch Other [employer] Other Start: 07-15-2022 Telephone encounter Jenarogorge Lynch [facility] [place] Start: 07-13-2022 End: 07-13-2022 ambulatory Jenaro Fraustojoe Other [employer] Other Start: 07-13-2022 Nursing evaluation o f patient and report Jenaro Lynch [facility] [place] Start: 07-12-[address] [facility]: Start: 07-05-2022 End: 07-05-2022 ambulatory Jenaro Lynch Other [employer] Other Start: 07-05-2022 Telephone encounter Jenaro Lynch [facility] [place] Start: 07-05-2022 Rx Renewal Jenaro Lynch Work Phone: [facility] 250 DO Work Phone: Start: 07-04-2022 End: 07-04-2022 ambulatory Jenaro Lynch Other [employer] Other Start: 07-04-2022 Office outpatient vi sit 25 minutes Jenaro Lynch [facility] Start: 06-30-2022 End: 06-30-2022 ambulatory Jenaro Lynch Other [employer] Other Start: 06-30-2022 Telephone encounter Jenaro Lynch [facility] [place] Start: 05-25-2022 End: 05-25-2022 ambulatory Jenaro Lynch Other [employer] Other Start: 05-25-2022 Telephone encounter Jenaro Lynch [facility] [place] Start: 04-25-2022 End: 04-25-2022 ambulatory Jenaro Lynch Other [employer] Other Start: 04-25-2022 Telephone encounter Jenaro Lynch [facility] [place] Start: 04-19-2022 End: 04-19-2022 ambulatory Jenaro Lynch Other [employer] Other Start: 04-19-2022 Telephone encounter Jenaro Lynch [facility] [place] Start: 03-22-2022 End: 03-22-2022 ambulatory Jenaro Lynch Other [employer] Other Start: 03-22-2022 Telephone encounter Jenaro Lynch [facility] [place] Start: 03-01-2022 End: 03-01-2022 ambulatory Jenaro Lynch Other [employer] Other Start: 03-01-2022 Telephone encounter Jenaro Lynch [facility] [place] Start: 02-18-2022 End: 02-18-2022 ambulatory Jenaro Lynch Other [employer] Other Start: 02-18-2022 Telephone encounter Jenaro Lynch [facility] [place] Start: 02-15-2022 End: 02-15-2022 ambulatory Verona Abhit Other [employer] Other Start: 02-15-2022 Office outpatient vi sit 25 minutes Jenaro Lynch [facility] [place] Start: 02-15-2022 Telephone encounter Verona Whaley [facility] Start: 01-21-2022 End: 01-21-2022 ambulatory Jenaro Lynch Other [employer] Other Start: 01-21-2022 Telephone encounter Jenaro Lynch [facility] [place] Start: 01-19-2022 End: 01-19-2022 ambulatory Jenaro Lynch Other [employer] Other Start: 01-19-2022 Telephone encounter Jenaro Lynch [facility] [place] Start: 01-13-2022 End: 01-13-2022 ambulatory Jenaro Lynch Other [employer] Other Start: 01-13-2022 Telephone encounter Jenaro Lynch [facility] [place] Start: 12-23-2021 End: 12-23-2021 ambulatory Jenaro Lynch Other [employer] Other Start: 12-23-[address] Lynch [facility] Start: 11-24-2021 End: 11-24-2021 ambulatory Jenaro Lynch Other [employer] Other Start: 11-24-2021 Telephone encounter Jenarogorge Lynch [facility] Start: 11-03-2021 Rx Renewal Jenaro Lynch Work Phone: [facility] [employer] 250 DO Work Phone: Start: 10-26-2021 Office outpatient vi sit 25 minutes Jenaro Lynch Work Phone: [facility] [employer] 250 DO Work Phone: Start: 10-25-2021 End: 10-25-2021 ambulatory Jenaro Syed Other [employer] Other Start: 10-25-2021 Telephone encounter Jenaro Syed [facility] Start: 10-19-2021 End: 10-19-2021 ambulatory Azjuan Amelies Other [employer] Other Start: 10-19-2021 Office outpatient vi sit 25 minutes Aziz Bakhous [facility] Ne[facility] Start: 10-18-2021 End: 10-18-2021 ambulatory Aziz Bakhous Other [employer] Other Start: 10-18-2021 Telephone encounter Azjuan Chavohous [facility] Ne[facility] Start: 10-12-2021 End: 10-13-2021 ambulatory DUARTE HENRY . Facility: Start: 10-08-2021 End: 10-08-2021 ambulatory Jenaro Lynch Other [employer] Other Start: 10-08-2021 Telephone encounter Jenaro Lynch [facility] [place] Start: 09-22-2021 End: 09-22-2021 ambulatory Jenaro Lynch Other [employer] Other Start: 09-22-2021 Telephone encounter Jenaro Lynch [facility] [place] Start: 09-21-2021 End: 09-21-2021 ambulatory Jenaro Lynch Other [employer] Other Start: 09-21-2021 Telephone encounter Jenaro Lynch [facility] [place] Start: 08-09-2021 End: 08-09-2021 ambulatory Jenaro Lynch Other [employer] Other Start: 08-09-2021 Telephone encounter Jenaro Lynch [facility] [place] Start: 08-02-2021 End: 08-02-2021 ambulatory Jenaro Lynch Other [employer] Other Start: 08-02-2021 Telephone encounter Jenaro Lynch [facility] [place] Start: 07-27-2021 End: 07-27-2021 ambulatory Jenaro Lynch Other [employer] Other Start: 07-27-2021 Office outpatient vi sit 25 minutes Jenaro Lynch [facility] [place] Start: 06-23-2021 End: 06-23-2021 ambulatory Jenaro Lynch Other [employer] Other Start: 06-23-2021 Telephone encounter Jenaro Lynch [facility] Start: 06-22-2021 Rx Renewal Jenaro Lynch Work Phone: [facility] [address] DO Work Phone: Start: 05-03-2021 End: 05-03-2021 ambulatory Jenaro Lynch Other [facility] [employer] Other Start: 05-03-2021 Telephone encounter Jenaro Lynch [facility] [place] Procedures Date Procedure Procedure Detail Performing Clinician [...] Duplex scan veins of upper limb DO Jenrao Lynch Work Phone: Start: 07-12-2023 Plain chest X-ray DO Livia Lynch Work Phone: Start: 04-13-2023 Transurethral prostatectomy Rigo ROWE Start: 03-27-2023 History of percutane ous transluminal coronary angioplasty History of PTCA Raulito Inman MD Work Phone: Start: 02-14-2023 Transurethral cystoscopy Rigo ROWE Start: 09-02-2022 MRI of head DO Jenaro shi Work Phone: Start: 06-05-2006 Total colonoscopy Jenaro Lynch Work Phone: Appendectomy Jenaro Mari Lynch Work Phone: Appendectomy Rigo ROWE Bilateral Carpal Timothy uli Surgery Rigo ROWE Bilateral Eye Surgery 1 Patr genaro ROWE Comment on above: bilateral cataracts with iol implants Cardiac catheterization Jose Angel Lynch Work Phone: cardiac stents Rigo Diaz Cataract extraction and insertion of intraocular lens Rigo ROWE Cataract surgery Jenaro diaz Work Phone: Colonoscopy Rigo ROWE Decompression of med byron nerve Jenaro Lynch Work Phone: History of percutane ous transluminal coronary angioplasty History of PTCA Jenaro Lynch Work Phone: History of percutane ous transluminal coronary angioplasty History of PTCA Raulito Inman MD Work Phone: Procedure on back Jenaro ramirez Work Phone: Comment on above: nerve ablation; Procedure on back Rigo MIRTA MAHERJoe Scrotum and testicle operation Jenaro Lynch Work Phone: Plan of Treatment Date Care Activity Detail Author Start: 10-21-2024 End: 10-21-2024 Patient encounter procedure 10/21/2024 8:00 AM EDT Office Visit [facility] [address] [facility] [address] [place] [address] Dolores Feldman, 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-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 [address] [place] [address] [facility] Start: 02-04-2024 Influenza vaccination Influenza Vaccine (Season Ended) [facility] Start: 11-15-2023 FUV, Provider: Raulito Inman, Status: Pen, Time: 2:40 PM FUV, Provider: Raulito Inman, Status: Pen, Time: 2:40 PM [facility] 250 DO Work Phone: Start: 10-02-2023 Acid Fast Culture Acid Fast Culture [facility] Start: 09-30-2023 Blood Culture 1 Blood Culture 1 [facility] Start: 09-30-2023 Blood Culture 2 Blood Culture 2 [facility] Start: 09-30-2023 Wound Culture Wound Culture [facility] [facility] Start: 09-21-2023 Abscess Culture Abscess Culture [facility] Start: 08-10-2023 Acid Fast Culture Acid Fast Culture [facility] Start: 08-05-2023 Wound Culture Wound Culture [facility] Start: 07-12-2023 Duplex scan of lower limb veins US venous duplex LE BI [facility] Start: 07-12-2023 US Lower extremity vein - bilateral [facility] Start: 07-12-2023 Duplex scan veins of upper limb US venous duplex UE LT [facility] Start: 07-12-2023 US Upper extremity vein - left [facility] Start: 02-15-2023 FUV, Provider: Dolores Velazquez, Status: Pen, Time: 10:00 AM FUV, Provider: Dolores Velazquez, Status: Pen, Time: 10:00 AM [facility] 600 DO Work Phone: Start: 02-03-2023 COVID-19 Vaccine ( season) COVID-19 Vaccine ( season) [facility] Start: 01-25-2023 STRESS NUC, Provider: CHARISSE HHVI NUCLEAR ,[id number], Status: Pen, Time: 8:30 AM STRESS NUC, Provider: CHARISSE HHVI NUCLEAR 01,[id number], Status: Pen, Time: 8:30 AM [facility] 600 DO Work Phone: Start: 07-12-2022 FUV, Provider: Raulito Inman, Status: Pen, Time: 9:20 AM FUV, Provider: Raulito Inman, Status: Pen, Time: 9:20 AM [facility] 250 DO Work Phone: Start: 10-26-2021 FUV, Provider: Raulito Inman, Status: Pen, Time: 9:30 AM FUV, Provider: Raulito Inman, Status: Pen, Time: 9:30 AM [facility] 250 DO Work Phone: Start: 03-05-2019 Pneumococcal Vaccine: Pediatrics (0 to 5 Years) and At-Risk Patients (6 to 64 Years) (2 of 2 - PCV) Pneumococcal Vaccine: Pediatrics (0 to 5 Years) and At-Risk Patients (6 to 64 Years) (2 of 2 - PCV) [facility] Start: 2015 Zoster Vaccines (1 of 2) Zoster Vaccines (1 of 2) [facility] Start: 1987 DTaP/Tdap/Td Vaccines (1 - Tdap) DTaP/Tdap/Td Vaccines (1 - Tdap) [facility] Start: 1984 Hepatitis B Vaccines (1 of 3 - 19+ 3-dose series) Hepatitis B Vaccines (1 of 3 - 19+ 3-dose series) [facility] Start: 1984 Urine screening for protein Diabetes: Urine Protein Screening [facility] Start: 1983 Hepatitis C screening Hepatitis C Screening [facility] Start: 1975 Diabetic foot examination Diabetes: Foot Exam [facility] Start: 1975 Glaucoma screening Diabetes: Retinopathy Screening [facility] Start: 1966 MMR Vaccines (1 of 1 - Standard series) MMR Vaccines (1 of 1 - Standard series) [facility] Start: 1965 Hemoglobin A1c measurement Diabetes: Hemoglobin A1C [facility] Start: 1965 HIV screening HIV Screening [facility] Start: 1965 Lipid panel Lipid Panel [facility] Start: 1965 Screening for malignant neoplasm of colon [facility] Start: 1965 Yearly Adult Physical Yearly Adult Physical [facility] Patient Education Dependent Edema (DC) [facility] Work Phone: Patient referral [facility] Work Phone: Immunizations Immunization Date Immunization Notes Care Provider Fa wilver 11-13-2020 Pfizer-BioNTech COVI D-19 Vacc 30 MCG/0.3ML Intramuscular Suspension Jenaro Lynch Work Phone: [facility] 10-23-2020 Pfizer-BioNTech COVI D-19 Vacc 30 MCG/0.3ML Intramuscular Suspension Jenaro Lynch Work Phone: [facility] 01-14-2019 influenza, seasonal, injectable Jenaro Lynch Other [facility] 01-14-2019 influenza virus vacc ine, unspecified formulation Rigo ROWE [facility] 04-02-2018 influenza virus vacc ine, unspecified formulation Rigo ROWE [facility] 04-02-2018 influenza, injectabl e, quadrivalent, preservative free DO Jenaro Lynch Work Phone: [facility] 03-05-2018 influenza virus vacc ine, unspecified formulation Jenaro Lynch Work Phone: [facility] [employer] 250 DO Work Phone: 03-05-2018 pneumococcal polysaccharide vaccine, 23 valent [facility] Work Phone: 03-07-2016 influenza virus vacc ine, unspecified formulation Rigo ROWE [facility] 03-07-2016 influenza, injectabl e, quadrivalent, preservative free Jenaro Lynch Work Phone: [facility] 600 DO Work Phone: 02-22-2016 pneumococcal polysaccharide vaccine, 23 valent Jenaro Lynch Work Phone: [facility] Payers Date Payer Category Payer Unknown 2023 Self-pay [id number] 2022 Private Health Insurance [id number] 2022 Private Health Insurance [id number] 2022 Private Health Insurance [id number] 2022 Medicaid [id number] 1965 Unknown [id number] 2.16.84 0.1.909525.3.579.2.593 1965 Unknown [id number] 2.16.8 40.1.719407.3.579.2.1068 1965 Unknown [id number] 2.16. 840.1.020077.3.579.2.356 1965 Unknown [id number] 2.16. 840.1.302710.3.579.2.356 1965 Unknown [id number] 2.16. 840.1.218631.3.579.2.356 1965 Unknown [id number] 2.16.8 40.1.986639.3.579.2.727 1965 Unknown [id number] 2.16.8 40.1.176091.3.579.2.1286 1965 Unknown [id number] 2.16.8 40.1.788742.3.579.2.1285 1965 Unknown [id number] 2.16.8 40.1.842797.3.579.2.1285 1965 Unknown [id number] 2.16.8 40.1.124930.3.579.2.1285 1965 Unknown [id number] 2.16.8 40.1.210695.3.579.2.1285 1965 Unknown [id number] 2.16.8 40.1.573713.3.579.2.1285 1965 Unknown [id number] 2.16.8 40.1.126307.3.579.2.1285 1965 Unknown [id number] 2.16.8 40.1.628426.3.579.2.1285 1965 Unknown [id number] 2.16.8 40.1.003348.3.579.2. 1965 Unknown [id number] 2.16.8 40.1.610883.3.579.2. 1965 Unknown [id number] 2.16.8 40.1.588298.3.579.2. 1965 Unknown [id number] 2.16.8 40.1.102464.3.579.2. 1965 Unknown [id number] 2.16.8 40.1.939372.3.579.2. 1965 Unknown [id number] 2.16.8 40.1.676144.3.579.2. 1965 Unknown [id number] 2.16.8 40.1.396737.3.579.2. 1965 Unknown [id number] 2.16.8 40.1.586474.3.579.2. 1965 Unknown [id number] 2.16.8 40.1.226509.3.579.2. 1965 Unknown [id number] 2.16.8 40.1.022381.3.579.2.727 1965 Unknown [id number] 2.16.8 40.1.400062.3.579.2.727 1965 Unknown [id number] 2.16.8 40.1.252131.3.579.2.727 1965 Unknown [id number] 2.16.8 40.1.243571.3.579.2.727 1965 Unknown [id number] 2.16.8 40.1.338465.3.579.2.727 1965 Unknown [id number] .16.8 40.1.719436.3.579.2.727 1965 Unknown [id number] 2.16.8 40.1.065213.3.579.2.727 1965 Unknown [id number] 2.16.8 40.1.096671.3.579.2.1286 1965 Unknown [id number] 2.16.8 40.1.094826.3.579.2.1286 1965 Unknown [id number] 2.16.8 40.1.177898.3.579.2.1244 1959 Unknown [id number] 2.1 6.840.1.266893.19 Unknown [id number] 2.16.8 40.1.690149.3.579.2.531 Unknown [id number] 2.16.8 40.1.056789.3.579.2.531 Unknown [id number] 2.16.8 40.1.602200.3.579.2.531 Unknown [id number] 2.16.8 40.1.287759.3.579.2.531 Unknown [id number] 2.16.8 40.1.427237.3.579.2.531 Unknown [id number] 2.16.8 40.1.146542.3.579.2.531 Social History Date Type Detail Facility Start: 08-08-2023 Caffeine use Caffeine use [employer] Other Comment on above: 2 cups coffee, 4-6 c ups tea daily, occaional soda; qauit 07/2020; Start: 08-08-2023 Sex Assigned At F [facility] Start: 07-14-2020 End: 07-12-2023 Tobacco smoking status NHIS Smoker (finding) [facility] Start: 1965 Sex Assigned At Male F [facility] Start: 11-23-2022 End: 10-23-2023 Tobacco smoking status Heavy tobacco smoker (finding) [facility] Tobacco smoking status Never [facility] Start: 10-24-2023 Tobacco smoking stat us NHIS Ex-smoker [facility] End: 06-05-2020 History of tobacco use Cigarette Smoker [facility] Work Phone: Start: 10-24-2023 Tobacco use and exposure Smokeless tobacco non-user [facility] Work Phone: Start: 10-24-2023 Alcoholic beverage intake Lifetime non-drinker (finding) [facility] Work Phone: Start: 1965 Sex assigned at Not on file [facility] Work Phone: Start: 10-14-2023 End: 10-24-2023 Exposure to SARS-CoV-2 (event) Not sure [facility] Medical Equipment Procedure Code Equipment [...] bilia ry stentMultiple peripheral artery stent, bare-metal [id number] FDA Start: 07-14-2020 Functional Status Date Assessment Result Facility 10-23-2023 Functional Status No [facility] 06-02-2023 Functional Status N/A [facility] 02-14-2023 Functional Status N/A [facility] 01-30-2023 Functional Status N/A [facility] 11-23-2022 Functional Status N/A [facility] Clinical Notes 06-23-2021 to 10-24-2023 Raulito Inman MD - 10/24/2023 10:20 AM EDTPatient Instructions Note Date & Type Note Facility 10-24-2023 Note Sinus tachycardia Rightward axis Poor anterior R wave progression QTc 481 ms [facility] 10-24-2023 History of Present illness Narrative [...] discussion and plan. documented in this encounter [facility] Work Phone: 10-24-2023 Instructions Rosemary [...] a cardiac standpoint documented in this encounter [facility] Work Phone: 07-13-2023 Hospital Discharge instructions Follow Up Care 07/13/2023 12:04:02 With:SOLEDAD HERRERA, Rigo Blum, URL Address: [address] [place], [place] [id number]- When: Unknown [facility] 06-26-2023 Evaluation note Encounter Date Diagnosis Assessment Notes Jun, Hyperlipidemia (ICD-10 - E78.5) [employer] Other [id number] Hospital Discharge instructions Patient Education 06/02/2023 11:57:43 [...] urethra. Follow these instructions at home: Take kjba-die-hyjnzfm and prescription medicines only as told by [...] provider. Document Revised: 12/08/2021 Document Reviewed: 12/08/2021 [employer] Patient Education 2022 [employer]. Follow Up Care 06/01/2023 14:05:36 With:SOLEDAD HERRERA, Rigo Blum, URL Address: [address] [place], [place] [id number]- When: Unknown [facility] 12-12-2023 Evaluation note* Encounter Date Diagnosis Assessment Notes Treatment Notes Treatment Clinical Notes May, 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) [employer] Other 11-24-2023 Evaluation note* Encounter Date Diagnosis Assessment Notes Treatment Notes Treatment Clinical Notes Apr, Diabetic nephropathy (ICD-10 - E11.21) [employer] Other 11-07-2023 Evaluation note* Encounter Date Diagnosis Assessment Notes Treatment Notes Treatment Clinical Notes Apr, Left arm pain (ICD-10 - M79.602) [facility] Other 11-02-2023 Evaluation note* Encounter Date Diagnosis [...] and to have his surgery as scheduled. 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 He was found to have developed the [...] to continue to montior this at home. [employer] Other 10-09-2023 Note [id number] Discharge instructions Patient Education [...] including vitamins, herbs, eye drops, creams, and pthy-wmq-lyqhbew medicines. Any problems you or family members [...] provider tells you to take them. Taking wrfo-kyv-muecpbz medicines, vitamins, herbs, and supplements. Surgery safety [...] provider. Document Revised: 02/15/2022 Document Reviewed: 02/15/2022 [employer] Patient Education 2022 [employer]. [facility] Note [id number]:127[facility] 02-14-2023 [id number]:127[facility]08-28-2023 Hospital Discharge instructions Patient Education 01/30/2023 [...] including vitamins, herbs, eye drops, creams, and bayt-aac-hccjsxz medicines. ?Whether you are or may be [...] provider. Document Revised: 02/02/2022 Document Reviewed: 12/25/2020 [employer] Patient Education 2022 [employer]. 01/30/2023 11:22:30 Cystoscopy Cystoscopy Cystoscopy is a [...] including vitamins, herbs, eye drops, creams, and pjbt-zds-oxckghv medicines. Any problems you or family members [...] provider tells you to take them. Taking zsec-vkz-wcszuzw medicines, vitamins, herbs, and supplements. Tests You [...] Follow these instructions at home: Medicines Take uuyk-dlz-ciuvmkl and prescription medicines only as told by [...] provider. Document Revised: 02/02/2022 Document Reviewed: 01/01/2021 [employer] Patient Education 2022 [employer]. Follow Up Care 11/23/2022 13:02:56 With:SOLEDAD HERRERA, Rigo Blum, URL Address: [facility] [address], [place] [address] [phone] When: Unknown Comments:sched cysto/uros [facility] 08-15-2023 Evaluation note* Encounter Date Diagnosis Assessment Notes Treatment Notes Treatment Clinical Notes Jan, Diabetic nephropathy (ICD-10 - E11.21) [facility] Other 06-29-2023 Evaluation note* Encounter Date Diagnosis [...] reviewed. 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 [employer] Other 06-21-2023 Hospital Discharge instructions Patient Education [...] provider. Document Revised: 08/11/2021 Document Reviewed: 05/07/2021 [employer] Patient Education 2021 [employer]. Follow Up Care 09/14/2022 14:23:26 With:SOLEDAD HERRERA, Rigo Blum, URL Address: [facility] [address], [place] [address]- When: Unknown 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) Sep, 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) [facility] Other 03-20-2023 Evaluation note* Encounter Date Diagnosis Assessment Notes Treatment Notes Treatment Clinical Notes Aug, Diabetic nephropathy (ICD-10 - E11.21) [facility] Other 03-03-2023 Evaluation note* Encounter Date Diagnosis Assessment Notes Treatment Notes Treatment Clinical Notes Aug, Pain in right leg (ICD-10 - M79.604) [facility] Other 03-02-2023 Evaluation note* Encounter Date Diagnosis Assessment Notes Treatment Notes Treatment Clinical Notes Aug, Pain in right leg (ICD-10 - M79.604) [facility] Other 02-20-2023 Evaluation note* Encounter Date Diagnosis Assessment Notes Treatment Notes Treatment Clinical Notes Jul, Intractable episodic headache, unspecified headache type (ICD-10 - R51.9) [employer] Other 02-14-2023 Evaluation note* Encounter Date Diagnosis Assessment Notes Treatment Notes Treatment Clinical Notes Jul, Acute intractable headache, unspecified headache type (ICD-10 - R51.9) [employer] Other 02-08-2023 Evaluation note* Encounter Date Diagnosis Assessment Notes Treatment Notes Treatment Clinical Notes Jul, Headache (ICD-10 - R51.9) [employer] Other 01-30-2023 Evaluation note* Encounter Date Diagnosis [...] medication and we will continue to monitor. [employer] Other 12-21-2022 Evaluation note* Encounter Date Diagnosis Assessment Notes Treatment Notes Treatment Clinical Notes May, Diabetic nephropathy (ICD-10 - E11.21) [facility] Other 11-21-2022 Evaluation note* Encounter Date Diagnosis Assessment Notes Treatment Notes Treatment Clinical Notes Apr, Diabetic nephropathy (ICD-10 - E11.21) [facility] Other 11-15-2022 Evaluation note* Encounter Date Diagnosis Assessment Notes Treatment Notes Treatment Clinical Notes Apr, Pain in right leg (ICD-10 - M79.604) [employer] Other 10-18-2022 Evaluation note* Encounter Date Diagnosis Assessment Notes Treatment Notes Treatment Clinical Notes Mar, Diabetic nephropathy (ICD-10 - E11.21) [facility] Other 09-13-2022 Evaluation note* Encounter Date Diagnosis Assessment Notes Treatment Notes Treatment Clinical Notes Feb, Hypertensive chronic kidney disease with stage 1 through stage 4 chronic kidney disease, or unspecified chronic kidney disease (ICD-10 - I12.9) [facility] Other 09-13-2022 Evaluation note* Encounter Date Diagnosis [...] scheduled. Feb, Atherosclerotic hear t disease of [place] coronary artery without angina pectoris (ICD-10 - [...] is to continue to follow with the [facility] as scheduled. Feb, Pain in right leg [...] Noted upon review of blood work results. [employer] Other 08-19-2022 Evaluation note* Encounter Date Diagnosis Assessment Notes Treatment Notes Treatment Clinical Notes Jan, Diabetic nephropathy (ICD-10 - E11.21) [employer] Other 08-17-2022 Evaluation note* Encounter Date Diagnosis Assessment Notes Treatment Notes Treatment Clinical Notes Jan, Diabetic nephropathy (ICD-10 - E11.21) [employer] Other 07-21-2022 Evaluation note* Encounter Date Diagnosis Assessment Notes Treatment Notes Treatment Clinical Notes Dec, Diabetic nephropathy (ICD-10 - E11.21) [employer] Other 06-22-2022 Evaluation note* Encounter Date Diagnosis Assessment Notes Treatment Notes Treatment Clinical Notes Nov, Diabetic nephropathy (ICD-10 - E11.21) [employer] Other 05-23-2022 Evaluation note* Encounter Date Diagnosis Assessment Notes Treatment Notes Treatment Clinical Notes October, Diabetic nephropathy (ICD-10 - E11.21) [employer] Other 05-17-2022 Evaluation note* Encounter Date Diagnosis [...] E11.59) October, 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 Inman. For this October, Other He did quit smoking since July 2020 [employer] Other 05-16-2022 Evaluation note* Encounter Date Diagnosis Assessment Notes Treatment Notes Treatment Clinical Notes October, Hypertensive chronic kidney disease with stage 1 through stage 4 chronic kidney disease, or unspecified chronic kidney disease (ICD-10 - I12.9) October, Stage 3 chronic kidney disease, unspecified whether stage 3a or 3b CKD (ICD-10 - N18.30) [employer] Other 05-06-2022 Evaluation note* Encounter Date Diagnosis Assessment Notes Treatment Notes Treatment Clinical Notes October, Pain in right leg (ICD-10 - M79.604) October, Pain in left leg (ICD-10 - M79.605) [employer] Other 04-20-2022 Evaluation note* Encounter Date Diagnosis Assessment Notes Treatment Notes Treatment Clinical Notes Sep, Diabetic nephropathy (ICD-10 - E11.21) [facility] Other 04-19-2022 Evaluation note* Encounter Date Diagnosis Assessment Notes Treatment Notes Treatment Clinical Notes Sep, Anxiety (ICD-10 - F41.9) Sep, Hypertensive chronic kidney disease with stage 1 through stage 4 chronic kidney disease, or unspecified chronic kidney disease (ICD-10 - I12.9) [employer] Other 03-07-2022 Evaluation note* Encounter Date Diagnosis Assessment Notes Treatment Notes Treatment Clinical Notes Aug, Anxiety (ICD-10 - F41.9) [facility] Other 02-22-2022 Evaluation note* Encounter Date Diagnosis [...] 12 pound weight loss from last visit. [employer] Other [id number] Evaluation note* Encounter Date Diagnosis Assessment Notes Treatment Notes Treatment Clinical Notes Jun, Diabetic nephropathy (ICD-10 - E11.21) [employer] Other Evaluation + Plan note Future Appointments Appointment Date:12/21/2022 11:00:00 AM Scheduled Provider: Location:[facility] Appointment Type:URO Nurse Visit Appointment Date:01/30/2023 10:30:00 AM Scheduled Provider:Rigo ROWE MD Location:[facility] Appointment Type:URO Office Visit [facility] Evaluation + Plan note Future Appointments Appointment Date:01/30/2023 10:15:00 AM Scheduled Provider:Rigo ROWE MD Location:[facility] Appointment Type:URO Office Visit [facility] Evaluation + Plan note Future Appointments Appointment Date:02/01/2023 10:00:00 AM Scheduled Provider: Location:[facility] Appointment Type:Urology CALL PAT FT Appointment Date:02/08/2023 09:00:00 AM Scheduled Provider: Location:[facility] Appointment Type:Urology FT Appointment Date:02/14/2023 09:15:00 AM Scheduled Provider: Location:[facility] Appointment Type:Urology FT [facility] evaluation + Plan note Future Appointments Appointment Date:02/14/2023 09:15:00 AM Scheduled Provider: Location:[facility]ments Appointment Date:03/20/2023 08:45:00 AM Scheduled Provider: Location:[facility] Appointment Type:URO Nurse Visit Appointment Date:04/05/2023 08:00:00 AM Scheduled Provider:Rigo ROWE MD Location:[facility] App[facility] Future Appointments Appointment Date:05/03/2023 08:45:00 AM Scheduled Provider:Rigo ROWE MD Location:[facility] Appointment Type:URO Office Visit [facility] Evaluation + Plan note Future Appointments Appointment Date:07/03/2023 10:15:00 AM Scheduled Provider:Rigo ROWE MD Location:[facility] Appointment Type:URO Office Visit [facility] evaluation + Plan note Future Appointments Appointment Date:10/23/2023 09:30:00 AM Scheduled Provider:Padmini Montes MD [facility] Appointment Type:Vascular Follow Up (FT) [facility]No [facility] [employer] Other [employer]q noteNo assessment information available [facility] Work Phone: Evaluation note* Diagnosis History of PTCA Postsurgical percutaneous transluminal coronary angioplasty status Hyperlipidemia, unspecified hyperlipidemia type Encounter for pre-operative cardiovascular clearance Former smoker Personal history of tobacco use, presenting hazards to health documented in this encounter [facility] Work Phone: History general Narrative [...] hydrocele repair 08/2016 Surgical History cardiac cath [facility] 04/02/18 Surgical History Lt LE iliac DSA, angioplasty & stenting 09/27/2018 Surgical History Left Angiogram with one stent - Dr. Boss 07/2020 Hospitalization History Deep Depression, Anxiety; [facility] 11-11-10 Hospitalization History [facility] hypoxemia and hyper capnic respirtory failure 11/11/16 Hospitalization History chest pain [facility] 04/02/18 [facility] [employer] Other History of Present illness NarrativeReturns in [...] impact on blood pressure and diabetes were reviewed-[facility] 250 DO Work Phone: History [...] medication regimen. He denies medication side effects. [facility] [employer] 250 DO Work Phone: Hospital course Narrative No data available for this section [facility] [employer] Hospital Discharge instructions No data available for this section [facility] [employer] Progress note No data available for this section [facility] [employer] Chief Complaint SOLOMON FELDMAN is being seen [...] ECG 12 Lead Raulito Inman MD [address] [facility] Home [address], [address] [address] Referral ID Status Reason Start Date Expiration Date V isits Requested Visits Authorized [id number] Authorized 10/24/2023 10/23/2024 1 1 Specialty Diagnoses / Procedures Referred By Brett mandujano Referred To Contact Cardiology Diagnoses History of PTCA Procedures Follow Up In Cardiology Raulito Inman MD [address] [facility] [address], [address] [address] Referral ID Status Reason Start Date Expiration Date V isits Requested Visits Authorized [id number] Authorized 10/24/2023 10/23/2024 1 1 Reason CANCELLED consult and treat; previous patient of Dr. Sharpe last seen in 2020; persisting intractable headaches Diagnosis 1 Acute intractable he adache, unspecified headache type (R51.9) Referral Organization [facility] [place] Referring Provider First Name Jenaro Referring Provider Last Name Syed Referring Provider Specialty Family [place] Referred Organization [facility] Referred Provider Lyssa Sharpe Referred Address [address] [place] [phone] Referred Provider Specialty Neurology Referral Priority Routine [facility]08 AM >Received today. [facility] request us to fill out their form and attach to Referral and send it to them and they will call patient to schedule. 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) Referral Organization [facility] [place] Referring Provider First Name Jenaro Referring Provider Last Name ySed Referring Provider Specialty Family [place] Referred Organization [facility] Referred Provider Doris Barnes Referred Address [address],[place], [place],[address] Referred Provider Specialty Nurse Jono calderon Referral [...] ECG 12 Lead Raulito Inman MD [facility] [facility] [address], [address] [address] Referral ID Status Reason Start Date Expiration Date V isits Requested Visits Authorized [id number] Authorized 10/24/2023 10/23/2024 1 1 Care Teams (unrecognized sec tion and content) Team Status: Active Member Role Status Dates Jenaro Lynch DO Primary Care Provider Active Team Status: Inactive Member Role Status Dates Jenaro Lynch , Primary Care Provider Active Shana Mclaughlin PA-C Attending Provider Active Team Status: Inactive Member Role Status Dates Jenaro Lynch , Primary Care Provider Active Jenaro Lynch DO [facility] Attending Provider Active Team Status: Inactive Member Role Status Dates Jenaro Kuns , DO Primary Care Provider Active Sta [...] Provider Active Sta rt: October 06, 2023 Surg Nurse Relationship Specialty Start Date End Date Jenaro [...] and content) DATE CREATED AUTHOR [facility]/11/2022 [facility] DATE CREATED AUTHOR AUTHOR'S ORGANIZ ATION 01/27/2023 [facility] DATE CREATED AUTHOR AUTHOR'S ORGANIZ ATION 02/16/2023 [facility] DATE CREATED AUTHOR AUTHOR'S ORGANIZ ATION 02/16/2023 [employer] DATE CREATED AUTHOR AUTHOR'S ORGANIZ ATION 10/22/2023 [facility] DATE CREATED AUTHOR AUTHOR'S ORGANIZ ATION 10/26/2023 [facility] DATE CREATED AUTHOR AUTHOR'S ORGANIZ ATION 11/16/2023 [facility] DATE CREATED AUTHOR AUTHOR'S ORGANIZ ATION 11/25/2023 [facility] DATE CREATED AUTHOR AUTHOR'S ORGANIZ ATION 11/29/2023 [facility] DATE CREATED AUTHOR AUTHOR'S ORGANIZ ATION 12/21/2023 [facility] DATE CREATED AUTHOR AUTHOR'S ORGANIZ ATION [facility]/20[facility] DATE CREATED AUTHOR AUTHOR'S ORGANIZ ATION 12/28/2023 [facility] FOR RECORDS PERTAINING TO PATIENTS WHO ARE [...] BE BASED ON THE PRIMARY CLINICAL RECORDS. [facility]. provides no warranty or guarantee of the accuracy or completeness of information in this document.
[2023-12-30 20:48] LABS: Troponin I High Sensitivity 5.7 pg/mL (4.0-76.1)
--- OUTSIDE RECORDS SUMMARY | 2023-12-30 21:36 | XMS_ITS | CCD ---
Author Organization [facility] Care Team Providers Care Patent Paralegal Name Role Phone Jenaro Lynch Unavailable Unavailable Unavailable Jenaro Lynch Unavailable Norris Faganjuan Unavailable Verona Whaley Unavailable Doris Barnes Unavailable DO Jenaro Lynch Primary Care Provider [phone] JERARDO Mclaughlin Attending Provider [phone] DO Jenaro Lynch Attending Provider ELAINE ., DUARET Attending Unavailable ELAINE Hernandez, DUARTE Admitting Unavailable DR LYSSA PERDOMO Consulting Unavailable SYED, DR EASON Primary Care Unavailable DUARTE MÁRQUEZ Consulting Unavailable JENARO LYNCH Primary Care Physician [phone] Syed, Dr. Jenaro Orona Primary Care UnavailDolores [...] Unavailable DO Jenaro Lynch Primary Care Provider [phone] MD Nancy Wilson Emergency Provider [phone] DO Jenaro Lynch Primary Care Provider MD Nancy Wilson Emergency Provider JERARDO Mclaughlin Attending Provider [phone] JERARDO Mclaughlin Referring Provider Crut, LINDSEY Hooker Attending Provider DO Jenaro Lynch Primary Care Provider Jenaro Lynch DO Primary Care Provider [phone] ROWE, Rigo R Attending Unavailable Simon, Mohamed [...] Unavailable Kuns, DO Jenaro Primary Care Provider Jenaro Lynch Primary Care Unavailable Shana Mclaughlin Referring Unavailable Shana Mclaughlin Attending Unavailable Shana Mclaughlin Admitting Unavailable Jenaro Lynch Primary Care Unavailable Nancy Wilson Attending Unavailable Nancy Wilson Admitting Unavailable Faithander, Paula Hooker Admitting Unavailable Highlander, Paula Hooker Attending Unavailable Highlbhavin, Paula Hooker Attending Unavailable Highlbhavin, Paula Hooker Admitting Unavailable Highlander, Paula Hooker Attending Unavailable Highlbhvain, Paula Hooker Admitting Unavailable KunJenaro diaz Primary [...] Eruption of skin (disorder) [facility] (20 sources) Penicillins; Translations: [Penicillins] Allergy to drug (finding) 11-05-19 14 Anaphylactoid reaction (disorder) [facility] (20 sources) Acetaminophen / oxyCODONE Drug Allergy vomiting [facility] [employer] Other (20 sources) tamsulosin; Translations: [TAMSULOSIN] Drug Allergy 07-14-19 21 hives [facility] (20 sources) PENICIILIN Propensity to adverse reactions SWELLING OF AIRWAY [facility] [employer] Other (10 sources) Acetaminophen; Translations: [ACETAMINOPHEN] Drug Allergy 07-14-19 21 Vomiting [facility] (11 sources) oxyCODONE; Translations: [Oxycodone] Drug Allergy 02-08-20 17 Vomiting [facility] (1 source) Penicillins Drug allergy (disorder) 09-23-19 14 [facility] (16 sources) Penicillin G; Translations: [penicillin G benzathine] Drug Allergy [facility] (8 sources) Penicillin Drug Allergy anaphylaxis [facility] [employer] Other (1 source) Latex Allergy to substance 03-27-20 23 Unknown [facility] (1 source) Penicillins Drug Allergy 03-27-20 23 Anaphylaxis [facility] Work Phone: (4 sources) Isosorbide; Translations: [ISOSORBIDE MONONITRATE] Drug Allergy 08-05-19 15 [facility] (1 source) Penicillins Drug allergy (disorder) 07-31-19 24 [facility] (1 source) tamsulosin Drug Allergy 07-31-19 [facility] Repository Medications Current Medications Medication Drug [...] 1:00am July 14, 2020 12:39pm Start: 10-10-2014 [place] 325 mg-5 mg oral tablet 1 tab(s), [...] 30 Refills: 6 Ordered: 11-Jan-2023 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 INTERNSHIPDolores Start : 11-Jan-2023 Active new start Start: [...] 1:00am Start: 02-14-2023 take 1 capsule by [facility] twice daily tamsulosin 0.4 mg Cap 0.4 mg = 1 cap(s), Oral, BID, # 60 cap(s), Refills(s) 3, Pharmacy: [facility]/pharmacy #[id number], 182, cm, 02/14/23 8:58:00 EDT, Height/Length Dosing, 94, kg, 01/30/23 10:24:00 EDT, Weight Dosing Start Date: 02/14/23 Status: Ordered take 1 capsule by [facility] once daily Tamsulosin HCl - 0.4 MG Oral Capsule TAKE 1 CAPSULE Daily Quantity: 0 Refills: 0 Ordered: 15-Feb-2023 DO [facility] (20 sources) Start: 01-27-2014 Start: 01-27-2014 [facility] as d irected Use as directed. Jan, Active Tiotropium [place] (Spiriva With Handihaler) 18 mcg capsule, w/inhalation device (5 sources) Start: 07-12-2023 take 1 capsule by inhalation once daily Tiotropium [place] (Spiriva With Handihaler) 18 mcg capsule, w/inhalation device Active 1 CAP INHALATION Daily July 12, 2023 1:00am puncture 1 cap using device; one dose = 2 inhalations Start: 07-12-2023 take 1 capsule by in halation once daily Tiotropium [place] (Spiriva With Handihaler) 18 mcg capsule, w/inhalation [...] Jun, Active take 2 tablets by [facility] at bedtime tiZANidine HCl - 4 MG [...] take 1 tablet by mouth once daily Olmesartan-[place] chlorothiazide (Benicar Hct) 40-12.5 mg Tablet Discontinued [...] of unspecified type of vessel, [place] or graft] Onset: 2 Resolved: 2 Chronic [...] to atherosclerosis; 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, right leg] [...] sources) Long-term current use of insulin; 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] Episodic Other [...] Test Name Value Interpretation Reference Range Facility [facility] 12-15-2023 L Specimen: [id number] Received: 12/15/23 Status: SOUDaniel Req Num: [id number] Spec Type: Surgical Subm Dr: Paula Elias DPM, MS Tissues: A DIGIT AMPUTATION (RT METATARSAL) Procedures: HE/3, Gross/Micro L4, Decalcification Age/ Patient Sex Location Account Attending Physician Solomon Feldman SR 58/M LABELL [id number] Paula Elias DPM, MS SPEC NUM: [id number] RECD: 12/15/23 STATUS: COLTON NATH NUM: [id number] SHAKIRA: 12/15/[address]: Paula Elias DPM, [...] and submitted following decalcification as follows: Specimen: [id number] Received: 12/15/23 Status: COLTON Yapcindy Num: [id number] Spec Type: Surgical Subm Dr: Paula Elias,LINDSEY, MS Tissues: A DIGIT AMPUTATION (RT METATARSAL) Procedures: HE/3, Gross/Micro L4, Decalcification Patient: Solomon Feldman SR [id number] (Continued) Specimen: [id number] Received: 12/15/23 (Continued) Gross Description (Continued) Signed (signature on file) Chin-Jerry Sotelo, MD 12/20/23 1207 Specimen: [id number] Received: 12/15/23 Status: COLTON Nath Num: [id number] Spec Type: Surgical Subm Dr: Paula Elias,LINDSEY, MS Tissues: A DIGIT AMPUTATION (RT METATARSAL) Procedures: HE/3, Gross/Micro L4, Decalcification Patient: Solomon Feldman SR [id number] (Continued) Specimen: [id number] Received: 12/15/23 (Continued) Gross Description (Continued) A1: Margin #1 A2: Margins #2, #3 A3: Margins #4, #5 TW Microscopic Description Microscopic examinations are performed supporting the above interpretation CPT Codes 09657, 90559 Specimen: [id number] Received: 12/15/23 Status: COLTON Nath Num: [id number] Spec Type: Surgical Subm Dr: Paula Elias,LINDSEY, MS Tissues: A DIGIT AMPUTATION (RT METATARSAL) Procedures: HE/3, Gross/Micro L4, Decalcification Patient: Solomon Feldman SR [id number] (Continued) Signed (signature on file) Victor Hugo Sotelo MD 12/20/23 0260 Normal [facility] Basophils Auto (Bld) [#/Vol] on 12-10-2023 Basophils (Bld) [#/Vol] 0.1 10 3/uL 0.0-0.1 [facility] Basophils/100 WBC Auto (Bld) on 12-10-2023 Basophils/100 WBC (Bld) 0.9 % 0.2-2.0 [facility] Eosinophils/100 WBC Auto (Bl d)on 12-10-2023 Eosinophils/100 WBC (Bld) 2.6 % 0.9-7.0 [facility] Erythrocyte distribution wid th Auto (RBC) [Ratio]on 12-10-2023 Erythrocyte distribution width (RBC) [Ratio] 17.7 % High 11.0-15.0 [facility] Estimated glomerular filtrat ion rate (GFR) non- Americanon 12-10-2023 GFR/1.73 sq M.predicted among non-blacks MDRD (S/P/Bld) [Vol rate/Area] 38 mL/min/{1.73_m2} Low >=60 [facility] Globulin Calc (S) [Mass/Vol] on 12-10-2023 Globulin (S) [Mass/Vol] 3.9 g/dL [facility] Hematocrit Auto (Bld) [Volum e fraction]on 12-10-2023 Hematocrit (Bld) [Volume fraction] 34.2 % Low 42.0-54.0 [facility] Hemoglobin [Mass/volume] in Bloodon 12-10-2023 Hemoglobin (Bld) [Mass/Vol] 10.5 g/dL Low 14.0-18.0 [facility] Laboratory - Chemistry and C hemistry - challengeon 12-10-2023 Albumin [Mass/Vol] 2.8 g/dL Low 3.4-5.0 [facility] ALP [Catalytic activity/Vol] 119 U/L High 46-116 [facility] ALT [Catalytic activity/Vol] 11 U/L Low 16-63 [facility] AST [Catalytic activity/Vol] 10 U/L Low 15-37 [facility] Bilirubin [Mass/Vol] 0.4 mg/dL 0.2-1.0 [facility] Calcium [Mass/Vol] 8.4 mg/dL Low 8.5-10.1 [facility] Chloride [Moles/Vol] 101 mmol/L 98-107 [facility] CO2 [Moles/Vol] 27.0 mmol/L 21.0-32.0 [facility] Creatinine [Mass/Vol] 1.83 mg/dL High 0.70-1.30 [facility] GFR/1.73 sq M.predicted MDRD (S/P/Bld) [Vol rate/Area] 46 mL/min/{1.73_m2} Low >=60 [facility] Glucose [Mass/Vol] 113 mg/dL High 74-106 [facility] Potassium [Moles/Vol] 3.3 mmol/L Low 3.5-5.1 [facility] Protein [Mass/Vol] 6.7 g/dL 6.4-8.2 [facility] Sodium [Moles/Vol] 134 mmol/L Low 136-145 [facility] Urea nitrogen [Mass/Vol] 21.0 mg/dL High 7.0-18.0 [facility] Urea nitrogen/Creatinine [Mass ratio] 11.5 mg/mg [facility] Laboratory - Hematology and Cell countson 12-10-2023 Immature granulocytes/100 WBC (Bld) 0.3 % 0.0-0.5 [facility] Leukocytes [#/volume] correc jorge for nucleated erythrocytes in Blood by Automated counon 12-10-2023 WBC corrected for nucl RBC Auto (Bld) [#/Vol] 9.8 10 3/uL 4.0-11.0 [facility] Lymphocytes Auto (Bld) [#/Vo l]on 12-10-2023 Lymphocytes (Bld) [#/Vol] 1.5 10 3/uL 1.2-3.8 [facility] Lymphocytes/100 WBC Auto (Bl d)on 12-10-2023 Lymphocytes/100 WBC (Bld) 15.8 % Low 20.5-60.0 [facility] MCH Auto (RBC) [Entitic mass ]on 12-10-2023 MCH (RBC) [Entitic mass] 25.1 pg Low 25.9-34.0 [facility] MCHC Auto (RBC) [Mass/Vol]on 12-10-2023 MCHC (RBC) [Mass/Vol] 30.7 g/dL 29.9-35.2 [facility] MCV Auto (RBC) [Entitic vol] on 12-10-2023 MCV (RBC) [Entitic vol] 81.6 fL 80.0-94.0 [facility] Monocytes Auto (Bld) [#/Vol] on 12-10-2023 Monocytes (Bld) [#/Vol] 1.2 10 3/uL High 0.3-0.8 [facility] Monocytes/100 WBC Auto (Bld) on 12-10-2023 Monocytes/100 WBC (Bld) 11.9 % 1.7-12.0 [facility] Neutrophils Auto (Bld) [#/Vo l]on 12-10-2023 Neutrophils (Bld) [#/Vol] 6.7 10 3/uL High 1.4-6.5 [facility] Neutrophils/100 WBC Auto (Bl d)on 12-10-2023 Neutrophils/100 WBC (Bld) 68.5 % 43.0-75.0 [facility] No Panel Informationon 12-09 Eosinophils # (Auto) 0.3 10 3/uL 0.0-0.7 [facility] Immature Granulocyte # (Auto) 0.03 10 3/uL 0.00-0.03 [facility] Platelet mean volume Auto (B ld) [Entitic vol]on 12-10-2023 Platelet mean volume (Bld) [Entitic vol] 10.2 fL 9.5-13.5 [facility] Platelets Auto (Bld) [#/Vol] on 12-10-2023 Platelets (Bld) [#/Vol] 240 10 3/uL 150-450 [facility] RBC Auto (Bld) [#/Vol]on RBC (Bld) [#/Vol] 4.19 10 6/uL Low 4.70-6.10 [facility] Serum or plasma albumin/glob ulin mass ratioon 12-10-2023 Albumin/Globulin [Mass ratio] 0.7 {ratio} [facility] Serum or plasma anion gap de terminationon 12-10-2023 Anion gap [Moles/Vol] 9.3 mmol/L [facility] Basophils Auto (Bld) [#/Vol] on 12-09-2023 Basophils (Bld) [#/Vol] 0.1 10 3/uL 0.0-0.1 [facility] Basophils/100 WBC Auto (Bld) on 12-09-2023 Basophils/100 WBC (Bld) 1.0 % 0.2-2.0 [facility] Eosinophils/100 WBC Auto (Bl d)on 12-09-2023 Eosinophils/100 WBC (Bld) 1.6 % 0.9-7.0 [facility] Erythrocyte distribution wid th Auto (RBC) [Ratio]on 12-09-2023 Erythrocyte distribution width (RBC) [Ratio] 17.7 % High 11.0-15.0 [facility] Estimated glomerular filtrat ion rate (GFR) non- Americanon 12-09-2023 GFR/1.73 sq M.predicted among non-blacks MDRD (S/P/Bld) [Vol rate/Area] 31 mL/min/{1.73_m2} Low >=60 [facility] Fibrin D-dimer [Presence] in Platelet poor plasma by Latex agglutinationon 12-09-2023 Fibrin D-dimer LA Ql (PPP) 3.76 mg/L FEU High <=0.59 [facility] Comment on above: RESULTS CALLED TO [...] on 12-09-2023 Globulin (S) [Mass/Vol] 4.6 g/dL [facility] Hematocrit Auto (Bld) [Volum e fraction]on 12-09-2023 Hematocrit (Bld) [Volume fraction] 39.2 % Low 42.0-54.0 [facility] Hemoglobin [Mass/volume] in Bloodon 12-09-2023 Hemoglobin (Bld) [Mass/Vol] 12.2 g/dL Low 14.0-18.0 [facility] Laboratory - Chemistry and C hemistry - challengeon 12-09-2023 Lactate [Moles/Vol] 2.9 mmol/L High 0.4-2.0 [facility] Comment on above: RESULTS CALLED TO RM SHARPE RN Bilirubin Ql (U) Negative NEGATIVE [facility] Glucose (U) [Mass/Vol] 500 mg/dL [facility]normal [facility] Ketones Ql (U) Negative NEGATIVE [facility] pH (U) 6.5 [pH] 5.0-9.0 [facility] Specific gravity (U) [Rel density] 1.020 1.005-1.02 5 [facility] Urobilinogen Qn (U) 0.2 {Brendan'U}/dL 0.2-1.0 [facility] Albumin [Mass/Vol] 3.5 g/dL 3.4-5.0 [facility] ALP [Catalytic activity/Vol] 141 U/L High 46-116 [facility] ALT [Catalytic activity/Vol] 13 U/L Low 16-63 [facility] AST [Catalytic activity/Vol] 8 U/L Low 15-37 [facility] Bilirubin [Mass/Vol] 0.7 mg/dL 0.2-1.0 [facility] Calcium [Mass/Vol] 9.6 mg/dL 8.5-10.1 [facility] Chloride [Moles/Vol] 99 mmol/L 98-107 [facility] CO2 [Moles/Vol] 21.7 mmol/L 21.0-32.0 [facility] Creatinine [Mass/Vol] 2.17 mg/dL High 0.70-1.30 [facility] GFR/1.73 sq M.predicted MDRD (S/P/Bld) [Vol rate/Area] 38 mL/min/{1.73_m2} Low >=60 [facility] Glucose [Mass/Vol] 191 mg/dL High 74-106 [facility] Magnesium [Mass/Vol] 1.6 mg/dL Low 1.8-2.4 [facility] Potassium [Moles/Vol] 3.8 mmol/L 3.5-5.1 [facility] Protein [Mass/Vol] 8.1 g/dL 6.4-8.2 [facility] Sodium [Moles/Vol] 135 mmol/L Low 136-145 [facility] Urea nitrogen [Mass/Vol] 20.0 mg/dL High 7.0-18.0 [facility] Urea nitrogen/Creatinine [Mass ratio] 9.2 mg/mg [facility] Laboratory - Hematology and Cell countson 12-09-2023 Immature granulocytes/100 WBC (Bld) 0.3 % 0.0-0.5 [facility] - Microbiology an d Antimicrobial susceptibilityon 12-09-2023 SARS-CoV-2 (COVID-19) RNA NELLY+probe Ql (Unsp spec) Negative NEGATIVE [facility] Comment on above: This test has [...] inform ationon 12-09-2023 Appearance (U) CLEAR CLEAR [facility] Color (U) YELLOW YELLOW [facility] Laboratory - Urinalysison Leukocyte esterase Test strip Ql (U) Negative NEGATIVE [facility] Nitrite Ql (U) Negative NEGATIVE [facility] Protein Ql (U) Negative NEG/TRACE [facility] Leukocytes [#/volume] correc jorge for nucleated erythrocytes in Blood by Automated counon 12-09-2023 WBC corrected for nucl RBC Auto (Bld) [#/Vol] 9.3 10 3/uL 4.0-11.0 [facility] Lymphocytes Auto (Bld) [#/Vo l]on 12-09-2023 Lymphocytes (Bld) [#/Vol] 1.5 10 3/uL 1.2-3.8 [facility] Lymphocytes/100 WBC Auto (Bl d)on 12-09-2023 Lymphocytes/100 WBC (Bld) 15.7 % Low 20.5-60.0 [facility] MCH Auto (RBC) [Entitic mass ]on 12-09-2023 MCH (RBC) [Entitic mass] 25.6 pg Low 25.9-34.0 [facility] MCHC Auto (RBC) [Mass/Vol]on 12-09-2023 MCHC (RBC) [Mass/Vol] 31.1 g/dL 29.9-35.2 [facility] MCV Auto (RBC) [Entitic vol] on 12-09-2023 MCV (RBC) [Entitic vol] 82.4 fL 80.0-94.0 [facility] Monocytes Auto (Bld) [#/Vol] on 12-09-2023 Monocytes (Bld) [#/Vol] 0.9 10 3/uL High 0.3-0.8 [facility] Monocytes/100 WBC Auto (Bld) on 12-09-2023 Monocytes/100 WBC (Bld) 9.1 % 1.7-12.0 [facility] Neutrophils Auto (Bld) [#/Vo l]on 12-09-2023 Neutrophils (Bld) [#/Vol] 6.7 10 3/uL High 1.4-6.5 [facility] Neutrophils/100 WBC Auto (Bl d)on 12-09-2023 Neutrophils/100 WBC (Bld) 72.3 % 43.0-75.0 [facility] No Panel Informationon 12-08 Urine Microscopic Review NO [facility] Urine Occult Blood Negative NEGATIVE [facility] Eosinophils # (Auto) 0.2 10 3/uL 0.0-0.7 [facility] Immature Granulocyte # (Auto) 0.03 10 3/uL 0.00-0.03 [facility] Troponin I High Sensitivity 8.7 pg/mL 4.0-76.1 [facility] Comment on above: CUT-OFF POINTS HAVE [...] volume (Bld) [Entitic vol] 10.7 fL 9.5-13.5 [facility] Platelets Auto (Bld) [#/Vol] on 12-09-2023 Platelets (Bld) [#/Vol] 294 10 3/uL 150-450 [facility] RBC Auto (Bld) [#/Vol]on RBC (Bld) [#/Vol] 4.76 10 6/uL 4.70-6.10 [facility] Serum or plasma albumin/glob ulin mass ratioon 12-09-2023 Albumin/Globulin [Mass ratio] 0.8 {ratio} [facility] Serum or plasma anion gap de terminationon 12-09-2023 Anion gap [Moles/Vol] 18.1 mmol/L [facility] Outside Operativeon 11-28-19 24 Outside Operative [id number]#1.00TIFF Normal [facility] Physician Orderon 11-28-2023 Physician Order [id number]#1.00TIFF Normal [facility] Basophils Auto (Bld) [#/Vol] on 11-26-2023 Basophils (Bld) [#/Vol] 0.1 10 3/uL 0.0-0.1 [facility] Basophils/100 WBC Auto (Bld) on 11-26-2023 Basophils/100 WBC (Bld) 1.1 % 0.2-2.0 [facility] Eosinophils/100 WBC Auto (Bl d)on 11-26-2023 Eosinophils/100 WBC (Bld) 3.5 % 0.9-7.0 [facility] Erythrocyte distribution wid th Auto (RBC) [Ratio]on 11-26-2023 Erythrocyte distribution width (RBC) [Ratio] 20.0 % High 11.0-15.0 [facility] Estimated glomerular filtrat ion rate (GFR) non- Americanon 11-26-2023 GFR/1.73 sq M.predicted among non-blacks MDRD (S/P/Bld) [Vol rate/Area] 41 mL/min/{1.73_m2} Low >=60 [facility] Globulin Calc (S) [Mass/Vol] on 11-26-2023 Globulin (S) [Mass/Vol] 4.2 g/dL [facility] Hematocrit Auto (Bld) [Volum e fraction]on 11-26-2023 Hematocrit (Bld) [Volume fraction] 33.1 % Low 42.0-54.0 [facility] Hemoglobin [Mass/volume] in Bloodon 11-26-2023 Hemoglobin (Bld) [Mass/Vol] 9.8 g/dL Low 14.0-18.0 [facility] Laboratory - Chemistry and C hemistry - challengeon 11-26-2023 Albumin [Mass/Vol] 3.2 g/dL Low 3.4-5.0 [facility] ALP [Catalytic activity/Vol] 143 U/L High 46-116 [facility] ALT [Catalytic activity/Vol] 16 U/L 16-63 [facility] AST [Catalytic activity/Vol] 14 U/L Low 15-37 [facility] Bilirubin [Mass/Vol] 0.5 mg/dL 0.2-1.0 [facility] Calcium [Mass/Vol] 9.1 mg/dL 8.5-10.1 [facility] Chloride [Moles/Vol] 101 mmol/L 98-107 [facility] CO2 [Moles/Vol] 24.2 mmol/L 21.0-32.0 [facility] Creatinine [Mass/Vol] 1.72 mg/dL High 0.70-1.30 [facility] GFR/1.73 sq M.predicted MDRD (S/P/Bld) [Vol rate/Area] 50 mL/min/{1.73_m2} Low >=60 [facility] Glucose [Mass/Vol] 132 mg/dL High 74-106 [facility] Lactate [Moles/Vol] 3.6 mmol/L High 0.4-2.0 [facility] Comment on above: RESULTS CALLED TO DR CROOK/YASMIN Potassium [Moles/Vol] 3.7 mmol/L 3.5-5.1 [facility] Protein [Mass/Vol] 7.4 g/dL 6.4-8.2 [facility] Sodium [Moles/Vol] 138 mmol/L 136-145 [facility] Urea nitrogen [Mass/Vol] 26.0 mg/dL High 7.0-18.0 [facility] Urea nitrogen/Creatinine [Mass ratio] 15.1 mg/mg [facility] Laboratory - Hematology and Cell countson 11-26-2023 ESR (Bld) [Velocity] 96 mm/h High <=20 [facility] Immature granulocytes/100 WBC (Bld) 0.4 % 0.0-0.5 [facility] Leukocytes [#/volume] correc jorge for nucleated erythrocytes in Blood by Automated counon 11-26-2023 WBC corrected for nucl RBC Auto (Bld) [#/Vol] 9.1 10 3/uL 4.0-11.0 [facility] Lymphocytes Auto (Bld) [#/Vo l]on 11-26-2023 Lymphocytes (Bld) [#/Vol] 2.1 10 3/uL 1.2-3.8 [facility] Lymphocytes/100 WBC Auto (Bl d)on 11-26-2023 Lymphocytes/100 WBC (Bld) 23.4 % 20.5-60.0 [facility] MCH Auto (RBC) [Entitic mass ]on 11-26-2023 MCH (RBC) [Entitic mass] 24.8 pg Low 25.9-34.0 [facility] MCHC Auto (RBC) [Mass/Vol]on 11-26-2023 MCHC (RBC) [Mass/Vol] 29.6 g/dL Low 29.9-35.2 [facility] MCV Auto (RBC) [Entitic vol] on 11-26-2023 MCV (RBC) [Entitic vol] 83.8 fL 80.0-94.0 [facility] Monocytes Auto (Bld) [#/Vol] on 11-26-2023 Monocytes (Bld) [#/Vol] 0.8 10 3/uL 0.3-0.8 [facility] Monocytes/100 WBC Auto (Bld) on 11-26-2023 Monocytes/100 WBC (Bld) 8.5 % 1.7-12.0 [facility] Neutrophils Auto (Bld) [#/Vo l]on 11-26-2023 Neutrophils (Bld) [#/Vol] 5.7 10 3/uL 1.4-6.5 [facility] Neutrophils/100 WBC Auto (Bl d)on 11-26-2023 Neutrophils/100 WBC (Bld) 63.1 % 43.0-75.0 [facility] No Panel InformationOrdered By: HERNAN CROOK on 11-26-2023 Blood Culture 2 [facility] Blood Culture 1 [facility] No Panel Informationon 11-25 C-Reactive Protein, Quantitative <0.50 mg/dL <=0.50 [facility] Eosinophils # (Auto) 0.3 10 3/uL 0.0-0.7 [facility] Immature Granulocyte # (Auto) 0.04 10 3/uL High 0.00-0.03 [facility] Platelet mean volume Auto (B ld) [Entitic vol]on 11-26-2023 Platelet mean volume (Bld) [Entitic vol] 10.4 fL 9.5-13.5 [facility] Platelets Auto (Bld) [#/Vol] on 11-26-2023 Platelets (Bld) [#/Vol] 371 10 3/uL 150-450 [facility] RBC Auto (Bld) [#/Vol]on RBC (Bld) [#/Vol] 3.95 10 6/uL Low 4.70-6.10 [facility] Serum or plasma albumin/glob ulin mass ratioon 11-26-2023 Albumin/Globulin [Mass ratio] 0.8 {ratio} [facility] Serum or plasma anion gap de terminationon 11-26-2023 Anion gap [Moles/Vol] 16.5 mmol/L [facility] Progress Note-Physicianon Progress Note-Physician [id number]#1.00TIFF Normal [place] [facility] Basophils Auto (Bld) [#/Vol] on 11-15-2023 Basophils (Bld) [#/Vol] 0.1 10 3/uL 0.0-0.1 [facility] Basophils/100 WBC Auto (Bld) on 11-15-2023 Basophils/100 WBC (Bld) 0.8 % 0.2-2.0 [facility] Eosinophils/100 WBC Auto (Bl d)on 11-15-2023 Eosinophils/100 WBC (Bld) 5.9 % 0.9-7.0 [facility] Erythrocyte distribution wid th Auto (RBC) [Ratio]on 11-15-2023 Erythrocyte distribution width (RBC) [Ratio] 20.6 % High 11.0-15.0 [facility] Estimated glomerular filtrat ion rate (GFR) non- Americanon 11-15-2023 GFR/1.73 sq M.predicted among non-blacks MDRD (S/P/Bld) [Vol rate/Area] 44 mL/min/{1.73_m2} Low >=60 [facility] Globulin Calc (S) [Mass/Vol] on 11-15-2023 Globulin (S) [Mass/Vol] 4.7 g/dL [facility] Hematocrit Auto (Bld) [Volum e fraction]on 11-15-2023 Hematocrit (Bld) [Volume fraction] 27.6 % Low 42.0-54.0 [facility] Hemoglobin [Mass/volume] in Bloodon 11-15-2023 Hemoglobin (Bld) [Mass/Vol] 8.5 g/dL Low 14.0-18.0 [facility] Laboratory - Chemistry and C hemistry - challengeon 11-15-2023 Albumin [Mass/Vol] 2.4 g/dL Low 3.4-5.0 [facility] ALP [Catalytic activity/Vol] 194 U/L High 46-116 [facility] ALT [Catalytic activity/Vol] 22 U/L 16-63 [facility] AST [Catalytic activity/Vol] 25 U/L 15-37 [facility] Bilirubin [Mass/Vol] 0.9 mg/dL 0.2-1.0 [facility] Calcium [Mass/Vol] 8.9 mg/dL 8.5-10.1 [facility] Chloride [Moles/Vol] 97 mmol/L Low 98-107 [facility] CO2 [Moles/Vol] 26.6 mmol/L 21.0-32.0 [facility] Creatinine [Mass/Vol] 1.63 mg/dL High 0.70-1.30 [facility] GFR/1.73 sq M.predicted MDRD (S/P/Bld) [Vol rate/Area] 53 mL/min/{1.73_m2} Low >=60 [facility] Glucose [Mass/Vol] 226 mg/dL High 74-106 [facility] Lactate [Moles/Vol] 1.4 mmol/L 0.4-2.0 [facility] Potassium [Moles/Vol] 4.1 mmol/L 3.5-5.1 [facility] Protein [Mass/Vol] 7.1 g/dL 6.4-8.2 [facility] Sodium [Moles/Vol] 135 mmol/L Low 136-145 [facility] Urea nitrogen [Mass/Vol] 24.0 mg/dL High 7.0-18.0 [facility] Urea nitrogen/Creatinine [Mass ratio] 14.7 mg/mg [facility] - Hematology and Cell countson 11-15-2023 Immature granulocytes/100 WBC (Bld) 0.6 % High 0.0-0.5 [facility] Leukocytes [#/volume] correc jorge for nucleated erythrocytes in Blood by Automated counon 11-15-2023 WBC corrected for nucl RBC Auto (Bld) [#/Vol] 9.5 10 3/uL 4.0-11.0 [facility] Lymphocytes Auto (Bld) [#/Vo l]on 11-15-2023 Lymphocytes (Bld) [#/Vol] 1.3 10 3/uL 1.2-3.8 [facility] Lymphocytes/100 WBC Auto (Bl d)on 11-15-2023 Lymphocytes/100 WBC (Bld) 14.1 % Low 20.5-60.0 [facility] MCH Auto (RBC) [Entitic mass ]on 11-15-2023 MCH (RBC) [Entitic mass] 24.9 pg Low 25.9-34.0 [facility] MCHC Auto (RBC) [Mass/Vol]on 11-15-2023 MCHC (RBC) [Mass/Vol] 30.8 g/dL 29.9-35.2 [facility] MCV Auto (RBC) [Entitic vol] on 11-15-2023 MCV (RBC) [Entitic vol] 80.9 fL 80.0-94.0 [facility] Monocytes Auto (Bld) [#/Vol] on 11-15-2023 Monocytes (Bld) [#/Vol] 1.1 10 3/uL High 0.3-0.8 [facility] Monocytes/100 WBC Auto (Bld) on 11-15-2023 Monocytes/100 WBC (Bld) 11.9 % 1.7-12.0 [facility] Neutrophils Auto (Bld) [#/Vo l]on 11-15-2023 Neutrophils (Bld) [#/Vol] 6.4 10 3/uL 1.4-6.5 [facility] Neutrophils/100 WBC Auto (Bl d)on 11-15-2023 Neutrophils/100 WBC (Bld) 66.7 % 43.0-75.0 [facility] No Panel InformationOrdered By: Fely Marker on 11-15-2023 Blood Culture 2 [facility] Blood Culture 1 [facility] No Panel Informationon 11-14 Eosinophils # (Auto) 0.6 10 3/uL 0.0-0.7 [facility] Immature Granulocyte # (Auto) 0.06 10 3/uL High 0.00-0.03 [facility] Platelet mean volume Auto (B ld) [Entitic vol]on 11-15-2023 Platelet mean volume (Bld) [Entitic vol] 10.8 fL 9.5-13.5 [facility] Platelets Auto (Bld) [#/Vol] on 11-15-2023 Platelets (Bld) [#/Vol] 338 10 3/uL 150-450 [facility] RBC Auto (Bld) [#/Vol]on RBC (Bld) [#/Vol] 3.41 10 6/uL Low 4.70-6.10 [facility] Serum or plasma albumin/glob ulin mass ratioon 11-15-2023 Albumin/Globulin [Mass ratio] 0.5 {ratio} [facility] Serum or plasma anion gap de terminationon 11-15-2023 Anion gap [Moles/Vol] 15.5 mmol/L [facility] BASIC METABOLIC PANLon 11-13 Anion gap [Moles/Vol] 10 mmol/L Normal 5-[address] [facility] Comment on above: Performed By: #### [facility], , 2776-06 ####[facility] ([id number])[address], [place] [address] Calcium [Mass/Vol] 8.8 mg/dL Normal 8.5-10.5 [facility] Comment on above: Performed By: #### C [facility], , 2776-06 ####[facility] ([id number])[address], [address] [place] [address] Chloride [Moles/Vol] 99 mmol/L Normal 98-109 [facility] Comment on above: Performed By: #### C [facility], , 2776-06 ####[facility] ([id number])[address], [address] [place] [address] CO2 [Moles/Vol] 26 mmol/L Normal 22-32 [facility] Comment on above: Performed By: #### C KENDALL CANALES, , 2776-06 ####[facility] ([id number])[address], [address], [place] [address] Creatinine [Mass/Vol] 1.61 mg/dL High 0.60-1.30 [facility] Comment on above: Result Comment: METH OD TRACEABLE TO IDMS STANDARD Performed By: #### C KENDALL CANALES, , 2776-06 ####[facility] ([id number])[address] [address] GFR/1.73 sq M.predicted among non-blacks MDRD (S/P/Bld) [Vol rate/Area] 49 mL/min/{1.73_m2} Low >59 [facility] Comment on above: Result Comment: Reported eGFR is based on the CKD-EPI 2020 equation that does not use a race coefficient. Performed By: #### C KENDALL CANALES, , 2776-06 ####[facility] ([id number])[address] [address], [place] [address] Glucose [Mass/Vol] 184 mg/dL High 65-99 [facility] Comment on above: Performed By: #### KENDALL AHUJA, , 2776-06 ####[facility] ([id number])[address] [address], [place] [address] Potassium [Moles/Vol] 4.0 mmol/L Normal 3.5-5.0 [facility] Comment on above: Performed By: #### KENDALL AHUJA, , 2776-06 ####[facility] ([id number])[address] [address] [place] [address] Sodium [Moles/Vol] 135 mmol/L Normal 134-146 [facility] Comment on above: Performed By: #### C ALLY[facility], , 2776-06 ####[facility] ([id number])[address] [address] [place] [address] Urea nitrogen [Mass/Vol] 23 mg/dL Normal 5-23 [facility] Comment on above: Performed By: #### C ALLY[facility], , 2776-06 ####[facility] ([id number])[address] [address] [place] [address] COMPLETE BLOOD COUNTon 11-13 Erythrocyte distribution width (RBC) [Ratio] 22.8 % High 11.5-15.0 [facility] Comment on above: Performed By: #### C ALLY[facility], , 2776-06 ####[facility] ([id number])[address] [address] Hematocrit (Bld) [Volume fraction] 25.1 % Low 39-49 [facility] Comment on above: Performed By: #### C ALLY[facility], , 2776-06 ####[facility] ([id number])[address] [address] [place] [address] Hemoglobin (Bld) [Mass/Vol] 8.1 g/dL Low 13.0-17.0 [facility] Comment on above: Performed By: #### Snehal CANALES, [facility], , 2776-06 ####[facility] ([id number])[address] [address] [place] [address] MCH (RBC) [Entitic mass] 25.1 pg Low 27-34 [facility] Comment on above: Performed By: #### C BC, BMP, , 2776-06 ####[facility] ([id number])[address] [address] [place] [address] MCHC (RBC) [Mass/Vol] 32.4 g/dL Normal 32-36 [facility] Comment on above: Performed By: #### C ALLY, BMP, , 2776-06 ####[facility] ([id number])[address], [place] [address] MCV (RBC) [Entitic vol] 77 fL Low 80-100 [facility] Comment on above: Performed By: #### Snehal CANALES, BMP, , 2776-06 ####[facility] ([id number])[address], [address], [place] [address] Platelet mean volume (Bld) [Entitic vol] 8.8 fL Normal 7-12 [facility] Comment on above: Performed By: #### Snehal CANALES, BMP, , 2776-06 ####[facility] ([id number])[address], [address], [place] [address] Platelets (Bld) [#/Vol] 232 10*3/uL Normal 150-450 [facility] Comment on above: Performed By: #### Snehal CANALES, BMP, , 2776-06 ####[facility] ([id number])[address], [address], [place] [address] RBC COUNT 3.25 X10E12/L Low 4.10-5.70 [facility] Comment on above: Performed By: #### Snehal CANALES, BMP, , 2776-06 ####[facility] ([id number])[address], [address], [place] [address] WBC (Bld) [#/Vol] 8.4 10*3/uL Normal 4.0-11.0 [facility] Comment on above: Performed By: #### Snehal CANALES, BMP, , 2776-06 ####[facility] ([id number])[address], [address], [place] [address] Glucose Glucometer (BldC) [M ass/Vol]on 11-14-2023 Glucose [Mass/Vol] 173 mg/dL High 65-99 [facility] Glucose [Mass/Vol] 279 mg/dL High 65-99 [facility] Glucose [Mass/Vol] 249 mg/dL High 65-99 [facility] MAGNESIUMon 11-14-2023 Magnesium [Mass/Vol] 2.1 mg/dL Normal 1.8-2.6 [facility] Comment on above: Performed By: #### 1 9123-9 ####[facility] ([id number])[address], [address] [place] [address] Magnesium [Mass/Vol] mg/dL Critically low 1.8-2.6 [facility] Comment on above: Performed By: #### 1 9123-9 ####[facility] ([id number])[address] [address] [place] [address] Magnesium [Mass/Vol] 1.7 mg/dL Low 1.8-2.6 [facility] Comment on above: Performed By: #### C KENDALL CANALES, , 1 ####[facility] ([id number])[address], [address] [place] [address] PHOSPHORUSon 11-14-2023 Phosphate [Mass/Vol] 3.6 mg/dL Normal 2.4-4.9 [facility] Comment on above: Performed By: #### KENDALL AHUJA, , 1 ####[facility] ([id number])[address], [address] [place] [address] BASIC METABOLIC PANLon 11-12 Anion gap [Moles/Vol] 10 mmol/L Normal 5-15 [facility] Comment on above: Performed By: #### KENDALL AHUJA, , 2776-06 ####[facility] ([id number])[address], [address], [place] [address] Calcium [Mass/Vol] 8.9 mg/dL Normal 8.5-10.5 [facility] Comment on above: Performed By: #### C ALLY, KENDALL, , 2776-06 ####[facility] ([id number])[address] [address] [place] [address] Chloride [Moles/Vol] 98 mmol/L Normal 98-109 [facility] Comment on above: Performed By: #### Snehal CANALES, KENDALL, , 2776-06 ####[facility] ([id number])[address] [address], [place] [address] CO2 [Moles/Vol] 27 mmol/L Normal 22-32 [facility] Comment on above: Performed By: #### Snehal CANALES, KENDALL, , 2776-06 ####[facility] ([id number])[address] [address] [place] [address] Creatinine [Mass/Vol] 1.47 mg/dL High 0.60-1.30 [facility] Comment on above: Result Comment: METH OD TRACEABLE TO IDMS STANDARD Performed By: #### Snehal CANALES, KENDALL, , 2776-06 ####[facility] ([id number])[address] [address] [place] [address] GFR/1.73 sq M.predicted among non-blacks MDRD (S/P/Bld) [Vol rate/Area] 55 mL/min/{1.73_m2} Low >59 [facility] Comment on above: Result Comment: Reported eGFR is based on the CKD-EPI 2020 equation that does not use a race coefficient. Performed By: #### Snehal CANALES, KENDALL, , 2776-06 ####[facility] ([id number])[address] [address], [place] [address] Glucose [Mass/Vol] 164 mg/dL High 65-99 [facility] Comment on above: Performed By: #### C [facility], , 2776-06 ####[facility] ([id number])[address], [place] [address] Potassium [Moles/Vol] 3.8 mmol/L Normal 3.5-5.0 [facility] Comment on above: Performed By: #### C [facility], , 2776-06 ####[facility] ([id number])[address], [address], [place] [address] Sodium [Moles/Vol] 135 mmol/L Normal 134-146 [facility] Comment on above: Performed By: #### Snehal CANALES, [facility], , 2776-06 ####[facility] ([id number])[address], [address], [place] [address] Urea nitrogen [Mass/Vol] 26 mg/dL High 5-23 [facility] Comment on above: Performed By: #### Snehal CANALES, [facility], , 2776-06 ####[facility] ([id number])[address] [address] COMPLETE BLOOD COUNTon 11-12 Erythrocyte distribution width (RBC) [Ratio] 23.2 % High 11.5-15.0 [facility] Comment on above: Performed By: #### Snehal CANALES, KENDALL, , 2776-06 ####[facility] ([id number])[address] [address] Hematocrit (Bld) [Volume fraction] 24.7 % Low 39-49 [facility] Comment on above: Performed By: #### Snehal CANALES, BMP, , 2776-06 ####[facility] ([id number])[address], [place] [address] Hemoglobin (Bld) [Mass/Vol] 8.2 g/dL Low 13.0-17.0 [facility] Comment on above: Performed By: #### Snehal CANALES, BMP, , 2776-06 ####[facility] ([id number])[address], [address] [place] [address] MCH (RBC) [Entitic mass] 25.7 pg Low 27-34 [facility] Comment on above: Performed By: #### Snehal CANALES, KENDALL, , 2776-06 ####[facility] ([id number])[address], [address], [place] [address] MCHC (RBC) [Mass/Vol] 33.4 g/dL Normal 32-36 [facility] Comment on above: Performed By: #### Snehal CANALES, KENDALL, , 2776-06 ####[facility] ([id number])[address], [address] [place] [address] MCV (RBC) [Entitic vol] 77 fL Low 80-100 [facility] Comment on above: Performed By: #### Snehal CANALES, KENDALL, , 2776-06 ####[facility] ([id number])[address], [address], [place] [address] Platelet mean volume (Bld) [Entitic vol] 8.8 fL Normal 7-12 [facility] Comment on above: Performed By: #### Snehal CANALES, KENDALL, , 2776-06 ####[facility] ([id number])[address], [address], [place] [address] Platelets (Bld) [#/Vol] 207 10*3/uL Normal 150-450 [facility] Comment on above: Performed By: #### KENDALL AHUJA, , 2776-06 ####[facility] ([id number])[address], [address], [place] [address] RBC COUNT 3.21 X10E12/L Low 4.10-5.70 [facility] Comment on above: Performed By: #### C KENDALL CANALES, , 2776-06 ####[facility] ([id number])[address], [address] [place] [address] WBC (Bld) [#/Vol] 8.1 10*3/uL Normal 4.0-11.0 [facility] Comment on above: Performed By: #### KENDALL AHUJA, , 2776-06 ####[facility] ([id number])[address], [address] [place] [address] Glucose Glucometer (BldC) [M ass/Vol]on 11-13-2023 Glucose [Mass/Vol] 230 mg/dL High 65-99 [facility] Glucose [Mass/Vol] 225 mg/dL High 65-99 [facility] Glucose [Mass/Vol] 331 mg/dL High 65-99 [facility] Glucose [Mass/Vol] 190 mg/dL High 65-99 [facility] MAGNESIUMon 11-13-2023 Magnesium [Mass/Vol] 2.1 mg/dL Normal 1.8-2.6 [facility] Comment on above: Performed By: #### C KENDALL CANALES, , 2776-06 ####[facility] ([id number])[address], [address] [place] [address] PHOSPHORUSon 11-13-2023 Phosphate [Mass/Vol] 3.8 mg/dL Normal 2.4-4.9 [facility] Comment on above: Performed By: #### KENDALL AHUJA, , 2776-06 ####[facility] ([id number])[address], [address] [place] [address] BASIC METABOLIC PANLon 11-11 Anion gap [Moles/Vol] 11 mmol/L Normal 5-15 [facility] Comment on above: Performed By: #### C ALLY, BMP #### [facility] ([id number]) [address], [address] [place] [address] Calcium [Mass/Vol] 9.0 mg/dL Normal 8.5-10.5 [facility] Comment on above: Performed By: #### C ALLY, BMP #### [facility] ([id number]) [address], [address] [place] [address] Chloride [Moles/Vol] 98 mmol/L Normal 98-109 [facility] Comment on above: Performed By: #### Snehal CANALES, BMP #### [facility] ([id number]) [address], [address] [place] [address] CO2 [Moles/Vol] 25 mmol/L Normal 22-32 [facility] Comment on above: Performed By: #### Snehal CANALES, BMP #### [facility] ([id number]) [address], [address] [place] [address] Creatinine [Mass/Vol] 1.40 mg/dL High 0.60-1.30 [facility] Comment on above: Result Comment: METH OD TRACEABLE TO IDMS STANDARD Performed By: #### C ALLY, BMP #### [facility] ([id number]) [address], [address] [place] [address] GFR/1.73 sq M.predicted among non-blacks MDRD (S/P/Bld) [Vol rate/Area] 58 mL/min/{1.73_m2} Low >59 [facility] Comment on above: Result Comment: Reported eGFR is based on the CKD-EPI 2020 equation that does not use a race coefficient. Performed By: #### C ALLY, BMP #### [facility] ([id number]) [address], [address] [place] [address] Glucose [Mass/Vol] 194 mg/dL High 65-99 [facility] Comment on above: Performed By: #### C ALLY, BMP #### [facility] ([id number]) [address], [address] [place] [address] Potassium [Moles/Vol] 4.0 mmol/L Normal 3.5-5.0 [facility] Comment on above: Performed By: #### C ALLY, BMP #### [facility] ([id number]) [address] [place] [address] Sodium [Moles/Vol] 134 mmol/L Normal 134-146 [facility] Comment on above: Performed By: #### C ALLY, BMP #### [facility] ([id number]) [address], [address] [place] [address] Urea nitrogen [Mass/Vol] 23 mg/dL Normal 5-23 [facility] Comment on above: Performed By: #### C ALLY, BMP #### [facility] ([id number]) [address], [address] [place] [address] COMPLETE BLOOD COUNTon 11-11 Erythrocyte distribution width (RBC) [Ratio] 24.1 % High 11.5-15.0 [facility] Comment on above: Performed By: #### C ALLY, BMP #### [facility] ([id number]) [address], [address] [place] [address] Hematocrit (Bld) [Volume fraction] 25.8 % Low 39-49 [facility] Comment on above: Performed By: #### C ALLY, BMP #### [facility] ([id number]) [address], [address] [place] [address] Hemoglobin (Bld) [Mass/Vol] 8.6 g/dL Low 13.0-17.0 [facility] Comment on above: Performed By: #### C ALLY, BMP #### [facility] ([id number]) [address], [address] [place] [address] MCH (RBC) [Entitic mass] 25.7 pg Low 27-34 [facility] Comment on above: Performed By: #### C ALLY, BMP #### [facility] ([id number]) [address], [address] [place] [address] MCHC (RBC) [Mass/Vol] 33.5 g/dL Normal 32-36 [facility] Comment on above: Performed By: #### C ALLY, BMP #### [facility] ([id number]) [address], [address] [place] [address] MCV (RBC) [Entitic vol] 77 fL Low 80-100 [facility] Comment on above: Performed By: #### C ALLY, BMP #### [facility] ([id number]) [address], [address] [place] [address] Platelet mean volume (Bld) [Entitic vol] 9.2 fL Normal 7-12 [facility] Comment on above: Performed By: #### C ALLY, BMP #### [facility] ([id number]) [address] [place] [address] Platelets (Bld) [#/Vol] 185 10*3/uL Normal 150-450 [facility] Comment on above: Performed By: #### C ALLY, BMP #### [facility] ([id number]) [address], [address] [place] [address] RBC COUNT 3.37 X10E12/L Low 4.10-5.70 [facility] Comment on above: Performed By: #### C ALLY, BMP #### [facility] ([id number]) [address], [address] [place] [address] WBC (Bld) [#/Vol] 10.0 10*3/uL Normal 4.0-11.0 [facility] Comment on above: Performed By: #### Snehal CANALES, BMP #### [facility] ([id number]) [address] [place] [address] Glucose Glucometer (BldC) [M ass/Vol]on 11-12-2023 Glucose [Mass/Vol] 230 mg/dL High 65-99 [facility] Glucose [Mass/Vol] 280 mg/dL High 65-99 [facility] Glucose [Mass/Vol] 268 mg/dL High 65-99 [facility] Glucose [Mass/Vol] 220 mg/dL High 65-99 [facility] Glucose [Mass/Vol] 205 mg/dL High 65-99 [facility] MAGNESIUMon 11-12-2023 Magnesium [Mass/Vol] 1.8 mg/dL Normal 1.8-2.6 [facility] Comment on above: Performed By: #### Snehal CANALES, BMP #### [facility] ([id number]) [address], [address] [place] [address] PHOSPHORUSon 11-12-2023 Phosphate [Mass/Vol] 3.8 mg/dL Normal 2.4-4.9 [facility] Comment on above: Performed By: #### Snehal CANALES, BMP #### [facility] ([id number]) [address], [address] [place] [address] BASIC METABOLIC PANLon 11-10 Anion gap [Moles/Vol] 8 mmol/L Normal 5-15 [facility] Comment on above: Performed By: #### Snehal CANALES, BMP #### [facility] ([id number]) [address] [place] [address] Calcium [Mass/Vol] 8.7 mg/dL Normal 8.5-10.5 [facility] Comment on above: Performed By: #### Snehal CANLAES, BMP #### [facility] ([id number]) [address], [address] [place] [address] Chloride [Moles/Vol] 99 mmol/L Normal 98-109 [facility] Comment on above: Performed By: #### C ALLY, BMP #### [facility] ([id number]) [address], [address] [place] [address] CO2 [Moles/Vol] 26 mmol/L Normal 22-32 [facility] Comment on above: Performed By: #### C ALLY, BMP #### [facility] ([id number]) [address] [address] [place] [address] Creatinine [Mass/Vol] 1.45 mg/dL High 0.60-1.30 [facility] Comment on above: Result Comment: METH OD TRACEABLE TO IDMS STANDARD Performed By: #### C ALLY, BMP #### [facility] ([id number]) [address] [address] GFR/1.73 sq M.predicted among non-blacks MDRD (S/P/Bld) [Vol rate/Area] 56 mL/min/{1.73_m2} Low >59 [facility] Comment on above: Result Comment: Reported eGFR is based on the CKD-EPI 2020 equation that does not use a race coefficient. Performed By: #### C ALLY, BMP #### [facility] ([id number]) [address] [place] [address] Glucose [Mass/Vol] 153 mg/dL High 65-99 [facility] Comment on above: Performed By: #### C ALLY, BMP #### [facility] ([id number]) [address] [address] [place] [address] Potassium [Moles/Vol] 3.9 mmol/L Normal 3.5-5.0 [facility] Comment on above: Performed By: #### Snehal CANALES, BMP #### [facility] ([id number]) [address], [address] [place] [address] Sodium [Moles/Vol] 133 mmol/L Low 134-146 [facility] Comment on above: Performed By: #### C ALLY, BMP #### [facility] ([id number]) [address], [address] [place] [address] Urea nitrogen [Mass/Vol] 27 mg/dL High 5-23 [facility] Comment on above: Performed By: #### C ALLY, BMP #### [facility] ([id number]) [address], [address] [place] [address] COMPLETE BLOOD COUNTon 11-10 Erythrocyte distribution width (RBC) [Ratio] 24.2 % High 11.5-15.0 [facility] Comment on above: Performed By: #### C ALLY, BMP #### [facility] ([id number]) [address], [address] [place] [address] Hematocrit (Bld) [Volume fraction] 25.1 % Low 39-49 [facility] Comment on above: Performed By: #### Snehal CANALES, BMP #### [facility] ([id number]) [address], [address] [place] [address] Hemoglobin (Bld) [Mass/Vol] 8.2 g/dL Low 13.0-17.0 [facility] Comment on above: Performed By: #### C ALLY, BMP #### [facility] ([id number]) [address], [address] [place] [address] MCH (RBC) [Entitic mass] 25.5 pg Low 27-34 [facility] Comment on above: Performed By: #### C ALLY, BMP #### [facility] ([id number]) [address], [address] [place] [address] MCHC (RBC) [Mass/Vol] 32.7 g/dL Normal 32-36 [facility] Comment on above: Performed By: #### C ALLY, BMP #### [facility] ([id number]) [address], [address] [place] [address] MCV (RBC) [Entitic vol] 78 fL Low 80-100 [facility] Comment on above: Performed By: #### C ALLY, BMP #### [facility] ([id number]) [address] [place] [address] Platelet mean volume (Bld) [Entitic vol] 9.0 fL Normal 7-12 [facility] Comment on above: Performed By: #### C ALLY, BMP #### [facility] ([id number]) 0 [address] [place] [address] Platelets (Bld) [#/Vol] 152 10*3/uL Normal 150-450 [facility] Comment on above: Performed By: #### Snehal CANALES, BMP #### [facility] ([id number]) [address] [place] [address] RBC COUNT 3.22 X10E12/L Low 4.10-5.70 [facility] Comment on above: Performed By: #### Snehal CANALES, BMP #### [facility] ([id number]) [address], [address] [place] [address] WBC (Bld) [#/Vol] 9.8 10*3/uL Normal 4.0-11.0 [facility] Comment on above: Performed By: #### Snehal CANALES, BMP #### [facility] ([id number]) [address] [place] [address] Glucose Glucometer (BldC) [M ass/Vol]on 11-11-2023 Glucose [Mass/Vol] 184 mg/dL High 65-99 [facility] Glucose [Mass/Vol] 179 mg/dL High 65-99 [facility] Glucose [Mass/Vol] 222 mg/dL High 65-99 [facility] Glucose [Mass/Vol] 303 mg/dL High 65-99 [facility] MAGNESIUMon 11-11-2023 Magnesium [Mass/Vol] 2.4 mg/dL Normal 1.8-2.6 [facility] Comment on above: Performed By: #### Snehal CANALES BMP #### [facility] ([id number]) [address] [place] [address] Magnesium [Mass/Vol] 1.9 mg/dL Normal 1.8-2.6 [facility] Comment on above: Performed By: #### Snehal CANALES BMP #### [facility] ([id number]) [address] [place] [address] PHOSPHORUSon 11-11-2023 Phosphate [Mass/Vol] 3.2 mg/dL Normal 2.4-4.9 [facility] Comment on above: Performed By: #### Snehal CANALES BMP #### [facility] ([id number]) [address] [place] [address] BASIC METABOLIC PANLon 11-09 Anion gap [Moles/Vol] 6 mmol/L Normal 5-15 [facility] Comment on above: Performed By: #### KENDALL AHUJA, , 2776-06 ####[facility] ([id number])[address], [place] [address] Calcium [Mass/Vol] 8.5 mg/dL Normal 8.5-10.5 [facility] Comment on above: Performed By: #### KENDALL AHUJA, , 2776-06 ####[facility] ([id number])[address], [place] [address] Chloride [Moles/Vol] 102 mmol/L Normal 98-109 [facility] Comment on above: Performed By: #### KENDALL AHUJA, , 2777-1 ####[facility] ([id number])[address] [address] [place] [address] CO2 [Moles/Vol] 26 mmol/L Normal 22-32 [facility] Comment on above: Performed By: #### C KENDALL CANALES, , 2776-06 ####[facility] ([id number])[address] [address] [address] Creatinine [Mass/Vol] 1.59 mg/dL High 0.60-1.30 [facility] Comment on above: Result Comment: METH OD TRACEABLE TO IDMS STANDARD Performed By: #### C ALLY [facility], , 2776-06 ####[facility] ([id number])[address] [address], [place] [address] GFR/1.73 sq M.predicted among non-blacks MDRD (S/P/Bld) [Vol rate/Area] 50 mL/min/{1.73_m2} Low >59 [facility] Comment on above: Result Comment: Reported eGFR is based on the CKD-EPI 2020 equation that does not use a race coefficient. Performed By: #### KENDALL AHUJA, , 2776-06 ####[facility] ([id number])[address] [address], [place] [address] Glucose [Mass/Vol] 145 mg/dL High 65-99 [facility] Comment on above: Performed By: #### KENDALL AHUJA, , 2776-06 ####[facility] ([id number])[address] [address] [place] [address] Potassium [Moles/Vol] 3.9 mmol/L Normal 3.5-5.0 [facility] Comment on above: Performed By: #### KENDALL AHUJA, , 2776-06 ####[facility] ([id number])[address], [address] [place] [address] Sodium [Moles/Vol] 134 mmol/L Normal 134-146 [facility] Comment on above: Performed By: #### C ALLY[facility], , 2776-06 ####[facility] ([id number])[address] [place] [address] Urea nitrogen [Mass/Vol] 23 mg/dL Normal 5-23 [facility] Comment on above: Performed By: #### C ALLY, [facility], , 2776-06 ####[facility] ([id number])[address] [address] COMPLETE BLOOD COUNTon 11-09 Erythrocyte distribution width (RBC) [Ratio] 24.9 % High 11.5-15.0 [facility] Comment on above: Performed By: #### Snehal CANALES, [facility], , 2776-06 ####[facility] ([id number])[address] [address] [place] [address] Hematocrit (Bld) [Volume fraction] 24.5 % Low 39-49 [facility] Comment on above: Performed By: #### Snehal CANALES, [facility], , 2776-06 ####[facility] ([id number])[address] [address] [place] [address] Hemoglobin (Bld) [Mass/Vol] 7.9 g/dL Low 13.0-17.0 [facility] Comment on above: Performed By: #### Snehal CANALES, BMP, , 2776-06 ####[facility] ([id number])[address] [address] MCH (RBC) [Entitic mass] 25.4 pg Low 27-34 [facility] Comment on above: Performed By: #### Snehal CANALES, BMP, , 2776-06 ####[facility] ([id number])[address], [place] [address] MCHC (RBC) [Mass/Vol] 32.4 g/dL Normal 32-36 [facility] Comment on above: Performed By: #### Snehal CANALES, KENDALL, , 2776-06 ####[facility] ([id number])[address], [place] [address] MCV (RBC) [Entitic vol] 78 fL Low 80-100 [facility] Comment on above: Performed By: #### Snehal CANALES, KENDALL, , 2776-06 ####[facility] ([id number])[address], [place] [address] Platelet mean volume (Bld) [Entitic vol] 9.1 fL Normal 7-12 [facility] Comment on above: Performed By: #### Snehal CANALES, KENDALL, , 2776-06 ####[facility] ([id number])[address] [address] [place] [address] Platelets (Bld) [#/Vol] 142 10*3/uL Low 150-450 [facility] Comment on above: Performed By: #### KENDALL AHUJA, , 2776-06 ####[facility] ([id number])[address], [place] [address] RBC COUNT 3.14 X10E12/L Low 4.10-5.70 [facility] Comment on above: Performed By: #### Snehal CANALES, BMP, , 2776-06 ####[facility] ([id number])[address], [address] [place] [address], [place] [address] WBC (Bld) [#/Vol] 9.7 10*3/uL Normal 4.0-11.0 [facility] Comment on above: Performed By: #### Snehal CANALES BMP, , 2776-06 ####[facility] ([id number])[address], [place] [address] Glucose Glucometer (BldC) [M ass/Vol]on 11-10-2023 Glucose [Mass/Vol] 168 mg/dL High 65-99 [facility] Glucose [Mass/Vol] 245 mg/dL High 65-99 [facility] Glucose [Mass/Vol] 155 mg/dL High 65-99 [facility] Glucose [Mass/Vol] 153 mg/dL High 65-99 [facility] MAGNESIUMon 11-10-2023 Magnesium [Mass/Vol] 2.2 mg/dL Normal 1.8-2.6 [facility] Comment on above: Performed By: #### Snehal CANALES, BMP #### [facility] ([id number]) [address], [address] [place] [address] Magnesium [Mass/Vol] 1.8 mg/dL Normal 1.8-2.6 [facility] Comment on above: Performed By: #### Snehal CANALES, KENDALL, , 2776-06 ####[facility] ([id number])[address], [place] [address] PHOSPHORUSon 11-10-2023 Phosphate [Mass/Vol] 3.1 mg/dL Normal 2.4-4.9 [facility] Comment on above: Performed By: #### Snehal CANALES, KENDALL, , 1 ####[facility] ([id number])[address], [place] [address] BASIC METABOLIC PANLon 11-08 Anion gap [Moles/Vol] 9 mmol/L Normal 5-15 [facility] Comment on above: Performed By: #### Snehal CANALES, 2639-3, BMP, 7-6, , 7-1 ####[facility] ([id number])[address] [place] [address] Calcium [Mass/Vol] 8.4 mg/dL Low 8.5-10.5 [facility] Comment on above: Performed By: #### C BC, 2639-3, BMP, 2156-6, , 2776-06 ####[facility] ([id number])[address] [address] [place] [address] Chloride [Moles/Vol] 104 mmol/L Normal 98-109 [facility] Comment on above: Performed By: #### C ALLY, 2639-3, BMP, 2156-6, , 2776-06 ####[facility] ([id number])[address] [address] CO2 [Moles/Vol] 25 mmol/L Normal 22-32 [facility] Comment on above: Performed By: #### C ALLY, 2639-3, BMP, 2156-11, , 2776-06 ####[facility] ([id number])[address] [address] Creatinine [Mass/Vol] 1.35 mg/dL High 0.60-1.30 [facility] Comment on above: Result Comment: METH OD TRACEABLE TO IDMS STANDARD Performed By: #### C ALLY, 2639-3, BMP, 2156-11, , 2776-06 ####[facility] ([id number])[address] [address] GFR/1.73 sq M.predicted among non-blacks MDRD (S/P/Bld) [Vol rate/Area] 61 mL/min/{1.73_m2} Normal >59 [facility] Comment on above: Result Comment: Reported eGFR is based on the CKD-EPI 2020 equation that does not use a race coefficient. Performed By: #### C BC, 2639-3, BMP, 2156-11, , 2776-06 ####[facility] ([id number])[address], [place] [address] Glucose [Mass/Vol] 217 mg/dL High 65-99 [facility] Comment on above: Performed By: #### C ALLY, 2639-3, BMP, 2156-6, , 2776- ####[facility] ([id number])[address], [place] [address] Potassium [Moles/Vol] 4.2 mmol/L Normal 3.5-5.0 [facility] Comment on above: Performed By: #### C ALLY, 2639-3, BMP, 2156-11, , 2776-06 ####[facility] ([id number])[address], [place] [address] Sodium [Moles/Vol] 138 mmol/L Normal 134-146 [facility] Comment on above: Performed By: #### C ALLY, 2639-3, BMP, 2156-, , 2776-06 ####[facility] ([id number])[address], [place] [address] Urea nitrogen [Mass/Vol] 23 mg/dL Normal 5-23 [facility] Comment on above: Performed By: #### Snehal CANALES, 2639-3, BMP, 2156-11, , 2776-06 ####[facility] ([id number])[address], [place] [address] CK [Catalytic activity/Vol]o n 11-09-2023 CPK 44 U/L Normal 24-195 [facility] Comment on above: Performed By: #### 2 157-6, 2639-3 ####[facility] ([id number])[address], [place] [address] CPK 30 U/L Normal 24-195 [facility] Comment on above: Performed By: #### C BC, 2639-3, BMP, 2156-6, , 1 ####[facility] ([id number])[address] [place] [address] COMPLETE BLOOD COUNTon 11-08 Erythrocyte distribution width (RBC) [Ratio] 24.9 % High 11.5-15.0 [facility] Comment on above: Performed By: #### C BC, 2639-3, BMP, 2156-6, , 2776-06 ####[facility] ([id number])[address] [place] [address] Hematocrit (Bld) [Volume fraction] 26.8 % Low 39-49 [facility] Comment on above: Performed By: #### Snehal BC, 2639-3, BMP, 2156-, , 2776-06 ####[facility] ([id number])[address], [place] [address] Hemoglobin (Bld) [Mass/Vol] 8.7 g/dL Low 13.0-17.0 [facility] Comment on above: Performed By: #### Snehal BC, 2639-3, BMP, 2156-, , 1 ####[facility] ([id number])[address] [address] [place] [address] MCH (RBC) [Entitic mass] 24.8 pg Low 27-34 [facility] Comment on above: Performed By: #### C BC, 2639-3, BMP, 2156-, , 1 ####[facility] ([id number])[address] [address] [place] [address] MCHC (RBC) [Mass/Vol] 32.6 g/dL Normal 32-36 [facility] Comment on above: Performed By: #### C ALLY, 2639-3, BMP, 2156-, , 2776-06 ####[facility] ([id number])[address] [place] [address] MCV (RBC) [Entitic vol] 76 fL Low 80-100 [facility] Comment on above: Performed By: #### Snehal CANALES, 2639-3, BMP, 2156-11, , 2776-06 ####[facility] ([id number])[address] [address] [place] [address] Platelet mean volume (Bld) [Entitic vol] 9.3 fL Normal 7-12 [facility] Comment on above: Performed By: #### Snehal CANALES, 9-3, BMP, 2156-, , 2776-06 ####[facility] ([id number])[address] [address] [place] [address] Platelets (Bld) [#/Vol] 184 10*3/uL Normal 150-450 [facility] Comment on above: Performed By: #### Snehal CANALES, 2639-3, BMP, 2156-11, , 2776-06 ####[facility] ([id number])[address] [address] [place] [address] RBC COUNT 3.53 X10E12/L Low 4.10-5.70 [facility] Comment on above: Performed By: #### C ALLY, 2639-3, BMP, 2156-, , 2776- ####[facility] ([id number])[address] [address] WBC (Bld) [#/Vol] 11.0 10*3/uL Normal 4.0-11.0 [facility] Comment on above: Performed By: #### Snehal CANALES, 2639-3, BMP, 2156-11, , 2776- ####[facility] ([id number])[address] [place] [address] Glucose Glucometer (BldC) [M ass/Vol]on 11-09-2023 Glucose [Mass/Vol] 243 mg/dL High 65-99 [facility] Glucose [Mass/Vol] 184 mg/dL High 65-99 [facility] Glucose [Mass/Vol] 199 mg/dL High 65-99 [facility] Glucose [Mass/Vol] 218 mg/dL High 65-99 [facility] Heparin unfractionated Chrom ogenic method Qn (PPP)on 11-09-2023 ANTI XA UFH 0.15 IU/mL Low 0.30-0.70 [facility] Comment on above: Result Comment: Opti mal time for testing is 6 hrs post dosage This test is specific for monitoring patients on UFH, and is not recommended for use with other Anti-Xa medications. Performed By: #### 3 274-8 ####[facility] ([id number])[address] [place] [address] MAGNESIUMon 11-09-2023 Magnesium [Mass/Vol] 2.2 mg/dL Normal 1.8-2.6 [facility] Comment on above: Performed By: #### C BC, 2639-3, [facility], 2156-11, , 2776-06 ####[facility] ([id number])[address] [place] [address] Myoglobin [Mass/Vol]on 11-08 SERUM MYOGLOBIN 97.7 ng/mL Normal 17.4-105.7 [facility] Comment on above: Performed By: #### 2 157-6, 2639-3 ####[facility] ([id number])[address] [place] [address] SERUM MYOGLOBIN 51.7 ng/mL Normal 17.4-105.7 [facility] Comment on above: Performed By: #### C BC, 2639-3, BMP, 2156-11, , 2777-1 ####[facility] ([id number])[address], [place] [address] PHOSPHORUSon 11-09-2023 Phosphate [Mass/Vol] 4.4 mg/dL Normal 2.4-4.9 [facility] Comment on above: Performed By: #### C BC, 2639-3, BMP, 2156-11, , 2776-1 ####[facility] ([id number])[address], [place] [address] BASIC METABOLIC PANLon 11-07 Anion gap [Moles/Vol] 9 mmol/L Normal 5-15 [facility] Comment on above: Performed By: #### P INR #### [facility] ([id number]) [address] [place] [address] Calcium [Mass/Vol] 8.4 mg/dL Low 8.5-10.5 [facility] Comment on above: Performed By: #### P INR #### [facility] ([id number]) [address] [place] [address] Chloride [Moles/Vol] 106 mmol/L Normal 98-109 [facility] Comment on above: Performed By: #### P INR #### [facility] ([id number]) [address] [place] [address] CO2 [Moles/Vol] 24 mmol/L Normal 22-32 [facility] Comment on above: Performed By: #### P INR #### [facility] ([id number]) [address] [place] [address] Creatinine [Mass/Vol] 1.30 mg/dL Normal 0.60-1.30 [facility] Comment on above: Result Comment: METH OD TRACEABLE TO IDMS STANDARD Performed By: #### P INR #### [facility] ([id number]) [address] [place] [address] GFR/1.73 sq M.predicted among non-blacks MDRD (S/P/Bld) [Vol rate/Area] 64 mL/min/{1.73_m2} Normal >59 [facility] Comment on above: Result Comment: Reported eGFR is based on the CKD-EPI 2020 equation that does not use a race coefficient. Performed By: #### P INR #### [facility] ([id number]) [address] [place] [address] Glucose [Mass/Vol] 163 mg/dL High 65-99 [facility] Comment on above: Performed By: #### P INR #### [facility] ([id number]) [address] [place] [address] Potassium [Moles/Vol] 4.1 mmol/L Normal 3.5-5.0 [facility] Comment on above: Performed By: #### P INR #### [facility] ([id number]) [address] [place] [address] Sodium [Moles/Vol] 139 mmol/L Normal 134-146 [facility] Comment on above: Performed By: #### P INR #### [facility] ([id number]) [address] [place] [address] Urea nitrogen [Mass/Vol] 23 mg/dL Normal 5-23 [facility] Comment on above: Performed By: #### P INR #### [facility] ([id number]) [address] [place] [address] Anion gap [Moles/Vol] 9 mmol/L Normal 5-15 [facility] Comment on above: Performed By: #### C BC, BMP #### [facility] ([id number]) [address] [place] [address] Calcium [Mass/Vol] 8.8 mg/dL Normal 8.5-10.5 [facility] Comment on above: Performed By: #### C ALLY, BMP #### [facility] ([id number]) [address] [place] [address] Chloride [Moles/Vol] 104 mmol/L Normal 98-109 [facility] Comment on above: Performed By: #### C ALLY, BMP #### [facility] ([id number]) [address] [place] [address] CO2 [Moles/Vol] 25 mmol/L Normal 22-32 [facility] Comment on above: Performed By: #### C ALLY, BMP #### [facility] ([id number]) [address] [place] [address] Creatinine [Mass/Vol] 1.70 mg/dL High 0.60-1.30 [facility] Comment on above: Result Comment: METH OD TRACEABLE TO IDMS STANDARD Performed By: #### C ALLY, BMP #### [facility] ([id number]) [address] [place] [address] GFR/1.73 sq M.predicted among non-blacks MDRD (S/P/Bld) [Vol rate/Area] 46 mL/min/{1.73_m2} Low >59 [facility] Comment on above: Result Comment: Reported eGFR is based on the CKD-EPI 2020 equation that does not use a race coefficient. Performed By: #### C ALLY, BMP #### [facility] ([id number]) [address] [place] [address] Glucose [Mass/Vol] 111 mg/dL High 65-99 [facility] Comment on above: Performed By: #### C ALLY, BMP #### [facility] ([id number]) [address] [place] [address] Potassium [Moles/Vol] 3.8 mmol/L Normal 3.5-5.0 [facility] Comment on above: Performed By: #### C BC, BMP #### [facility] ([id number]) [address] [place] [address] Sodium [Moles/Vol] 138 mmol/L Normal 134-146 [facility] Comment on above: Performed By: #### C BC, BMP #### [facility] ([id number]) [address] [place] [address] Urea nitrogen [Mass/Vol] 28 mg/dL High 5-23 [facility] Comment on above: Performed By: #### C BC, BMP #### [facility] ([id number]) [address] [place] [address] CK [Catalytic activity/Vol]o n 11-08-2023 CPK 26 U/L Normal 24-195 [facility] Comment on above: Performed By: #### P INR #### [facility] ([id number]) [address] [place] [address] COMPLETE BLOOD COUNTon 11-07 Erythrocyte distribution width (RBC) [Ratio] 24.8 % High 11.5-15.0 [facility] Comment on above: Performed By: #### P INR #### [facility] ([id number]) [address] [place] [address] Hematocrit (Bld) [Volume fraction] 29.3 % Low 39-49 [facility] Comment on above: Performed By: #### P INR #### [facility] ([id number]) [address] [place] [address] Hemoglobin (Bld) [Mass/Vol] 9.6 g/dL Low 13.0-17.0 [facility] Comment on above: Performed By: #### P INR #### [facility] ([id number]) [address] [place] [address] MCH (RBC) [Entitic mass] 24.9 pg Low 27-34 [facility] Comment on above: Performed By: #### P INR #### [facility] ([id number]) [address] [place] [address] MCHC (RBC) [Mass/Vol] 32.7 g/dL Normal 32-36 [facility] Comment on above: Performed By: #### P INR #### [facility] ([id number]) [address] [place] [address] MCV (RBC) [Entitic vol] 76 fL Low 80-100 [facility] Comment on above: Performed By: #### P INR #### [facility] ([id number]) [address] [place] [address] Platelet mean volume (Bld) [Entitic vol] 8.7 fL Normal 7-12 [facility] Comment on above: Performed By: #### P INR #### [facility] ([id number]) [address] [place] [address] Platelets (Bld) [#/Vol] 169 10*3/uL Normal 150-450 [facility] Comment on above: Performed By: #### P INR #### [facility] ([id number]) [address], [address] [place] [address] RBC COUNT 3.85 X10E12/L Low 4.10-5.70 [facility] Comment on above: Performed By: #### P INR #### [facility] ([id number]) [address], [address] [place] [address] WBC (Bld) [#/Vol] 13.5 10*3/uL High 4.0-11.0 [facility] Comment on above: Performed By: #### P INR #### [facility] ([id number]) [address] [place] [address] Erythrocyte distribution width (RBC) [Ratio] 25.2 % High 11.5-15.0 [facility] Comment on above: Performed By: #### C BC, BMP #### [facility] ([id number]) [address], [address] [place] [address] Hematocrit (Bld) [Volume fraction] 33.0 % Low 39-49 [facility] Comment on above: Performed By: #### C BC, BMP #### [facility] ([id number]) [address] [place] [address] Hemoglobin (Bld) [Mass/Vol] 10.8 g/dL Low 13.0-17.0 [facility] Comment on above: Performed By: #### C BC, BMP #### [facility] ([id number]) [address] [place] [address] MCH (RBC) [Entitic mass] 25.0 pg Low 27-34 [facility] Comment on above: Performed By: #### C BC, BMP #### [facility] ([id number]) [address], [address] [place] [address] MCHC (RBC) [Mass/Vol] 32.8 g/dL Normal 32-36 [facility] Comment on above: Performed By: #### C BC, BMP #### [facility] ([id number]) [address], [address] [place] [address] MCV (RBC) [Entitic vol] 76 fL Low 80-100 [facility] Comment on above: Performed By: #### C BC, BMP #### [facility] ([id number]) [address], [address] [place] [address] Platelet mean volume (Bld) [Entitic vol] 8.8 fL Normal 7-12 [facility] Comment on above: Performed By: #### Snehal CANALES, BMP #### [facility] ([id number]) [address], [facility] [address] [place] [address] Platelets (Bld) [#/Vol] 172 10*3/uL Normal 150-450 [facility] Comment on above: Performed By: #### Snehal CANALES, BMP #### [facility] ([id number]) [address], [address] [place] [address] RBC COUNT 4.33 X10E12/L Normal 4.10-5.70 [facility] Comment on above: Performed By: #### Snehal CANALES, BMP #### [facility] ([id number]) [address], [facility] [address] [place] [address] WBC (Bld) [#/Vol] 9.3 10*3/uL Normal 4.0-11.0 [facility] Comment on above: Performed By: #### Snehal CANALES, BMP #### [facility] ([id number]) [address], [facility] [address] [place] [address] Glucose Glucometer (dC) [M ass/Vol]on 11-08-2023 Glucose [Mass/Vol] 162 mg/dL High 65-99 [facility] Glucose [Mass/Vol] 96 mg/dL Normal 65-99 [facility] Glucose [Mass/Vol] 142 mg/dL High 65-99 [facility] Glucose [Mass/Vol] 114 mg/dL High 65-99 [facility] Lactate (P ekaterina) [Moles/Vol]o n 11-08-2023 LACTATE W/REFLEX 1.0 mmol/L Normal 0.4-2.0 [facility] Comment on above: Result Comment: Result did not trigger repeat Lactate, re-order if needed. Performed By: #### P INR #### [facility] ([id number]) [address] [place] [address] MAGNESIUMon 11-08-2023 Magnesium [Mass/Vol] 1.7 mg/dL Low 1.8-2.6 [facility] Comment on above: Performed By: #### P INR #### [facility] ([id number]) [address], [address] [place] [address] Myoglobin [Mass/Vol]on 11-07 SERUM MYOGLOBIN 33.1 ng/mL Normal 17.4-105.7 [facility] Comment on above: Performed By: #### P INR #### [facility] ([id number]) [address], [address] [place] [address] PHOSPHORUSon 11-08-2023 Phosphate [Mass/Vol] 4.0 mg/dL Normal 2.4-4.9 [facility] Comment on above: Performed By: #### P INR #### [facility] ([id number]) [address], [address] [place] [address] PROTIME AND INRon 11-08-2023 INR Coag (PPP) [Relative time] 1.3 {INR} High 0.8-1.1 [facility] Comment on above: Performed By: #### P INR #### [facility] ([id number]) [address], [address] [place] [address] PT Coag (PPP) [Time] 14.7 s High 9.8-13.2 [facility] Comment on above: Performed By: #### P INR #### [facility] ([id number]) [address], [address] [place] [address] RAPID CARDIACon 11-08-[address] [facility] Comment on above: Performed By: #### A FAB5 #### [facility] ([id number]) [address] [place] [address] Base excess Calc (Bld) [Moles/Vol] 0.1 mmol/L Normal 0.0-2.0 [facility] Comment on above: Performed By: #### A FAB5 #### [facility] ([id number]) [address] [place] [address] Body temperature 98.6 [degF] Normal 37.0 [facility] Comment on above: Performed By: #### A FAB5 #### [facility] ([id number]) [address] [place] [address] Glucose [Mass/Vol] 117 mg/dL High 65-99 [facility] Comment on above: Performed By: #### A FAB5 #### [facility] ([id number]) [address] [place] [address] HCO3 (Bld) [Moles/Vol] 24.8 mmol/L Normal 22-26 [facility] Comment on above: Performed By: #### A FAB5 #### [facility] ([id number]) [address] [place] [address] Hematocrit (Bld) [Volume fraction] 31 % Low 39-49 [facility] Comment on above: Performed By: #### A FAB5 #### [facility] ([id number]) [address] [place] [address] Hemoglobin (Bld) [Mass/Vol] 10.2 g/dL Low 13.0-17.0 [facility] Comment on above: Performed By: #### A FAB5 #### [facility] ([id number]) [address] [place] [address] INSP. O2 CONC. 100 % Normal [facility] Comment on above: Performed By: #### A FAB5 #### [facility] ([id number]) [address] [place] [address] IONIZED CALCIUM 4.8 mg/dL Normal 4.5-5.3 [facility] Comment on above: Performed By: #### A FAB5 #### [facility] ([id number]) [address] [place] [address] Oxygen (Bld) [Partial pressure] 167 mm[Hg] High 80-100 [facility] Comment on above: Performed By: #### A FAB5 #### [facility] ([id number]) [address] [place] [address] Oxygen saturation in Blood 100.8 % Normal >90 [facility] Comment on above: Performed By: #### A FAB5 #### [facility] ([id number]) [address] [place] [address] PCO2 39.7 MMHG Normal 35-45 [facility] Comment on above: Performed By: #### A FAB5 #### [facility] ([id number]) [address] [place] [address] pH (Bld) 7.404 [pH] Normal 7.350-7.[address] [facility] Comment on above: Performed By: #### A FAB5 #### [facility] ([id number]) [address] [place] [address] Potassium [Moles/Vol] 3.8 mmol/L Normal 3.5-5.0 [facility] Comment on above: Performed By: #### A FAB5 #### [facility] ([id number]) [address] [place] [address] SAMPLE SITE KECIA Normal [facility] Comment on above: Performed By: #### A FAB5 #### [facility] ([id number]) [address] [place] [address] SAMPLE TYPE Arterial Normal [facility] Comment on above: Performed By: #### A FAB5 #### [facility] ([id number]) [address] [place] [address] RAPID CARDIAC W/ NAon [address] [facility] Comment on above: Performed By: #### P INR #### [facility] ([id number]) [address] [place] [address] Base excess Calc (Bld) [Moles/Vol] 0.2 mmol/L Normal 0.0-2.0 [facility] Comment on above: Performed By: #### P INR #### [facility] ([id number]) [address] [place] [address] Body temperature 98.6 [degF] Normal 37.0 [facility] Comment on above: Performed By: #### P INR #### [facility] ([id number]) [address] [place] [address] Glucose [Mass/Vol] 125 mg/dL High 65-99 [facility] Comment on above: Performed By: #### P INR #### [facility] ([id number]) [address], [address] [place] [address] HCO3 (Bld) [Moles/Vol] 25.3 mmol/L Normal 22-26 [facility] Comment on above: Performed By: #### P INR #### [facility] ([id number]) [address], [address] [place] [address] Hematocrit (Bld) [Volume fraction] 31 % Low 39-49 [facility] Comment on above: Performed By: #### P INR #### [facility] ([id number]) [address], [address] [place] [address] Hemoglobin (Bld) [Mass/Vol] 10.0 g/dL Low 13.0-17.0 [facility] Comment on above: Performed By: #### P INR #### [facility] ([id number]) [address], [address] [place] [address] INSP. O2 CONC. 50 % Normal [facility] Comment on above: Performed By: #### P INR #### [facility] ([id number]) [address], [address] [place] [address] IONIZED CALCIUM 4.7 mg/dL Normal 4.5-5.3 [facility] Comment on above: Performed By: #### P INR #### [facility] ([id number]) [address] [place] [address], [address] [place] [address] Oxygen (Bld) [Partial pressure] 131 mm[Hg] High 80-100 [facility] Comment on above: Performed By: #### P INR #### [facility] ([id number]) [address] [facility] [place] [address] Oxygen saturation in Blood 99.9 % Normal >90 [facility] Comment on above: Performed By: #### P INR #### [facility] ([id number]) [address] [facility], [address] [place] [address] PCO2 42.7 MMHG Normal 35-45 [facility] Comment on above: Performed By: #### P INR #### [facility] ([id number]) [address], [address] [place] [address] pH (Bld) 7.381 [pH] Normal 7.350-7.[address] [facility] Comment on above: Performed By: #### P INR #### [facility] ([id number]) [address] [facility], [address] [place] [address] Potassium [Moles/Vol] 3.7 mmol/L Normal 3.5-5.0 [facility] Comment on above: Performed By: #### P INR #### [facility] ([id number]) [address], [address] [place] [address] SAMPLE SITE KECIA Normal [facility] Comment on above: Performed By: #### P INR #### [facility] ([id number]) [address], [address] [place] [address] SAMPLE TYPE Arterial Normal [facility] Comment on above: Performed By: #### P INR #### [facility] ([id number]) [address] [place] [address] Sodium [Moles/Vol] 139 mmol/L Normal 134-146 [facility] Comment on above: Performed By: #### P INR #### [facility] ([id number]) [address] [place] [address] aPTT Coag (PPP) [Time]on aPTT Coag (Bld) [Time] 30 s Normal 26-37 [facility] Comment on above: Performed By: #### P INR #### [facility] ([id number]) [address] [place] [address] Glucose Glucometer (BldC) [M ass/Vol]on 11-07-2023 Glucose [Mass/Vol] 150 mg/dL High 65-99 [facility] Glucose [Mass/Vol] 58 mg/dL Low 65-99 [facility] POC [id number] 11-07-2023 Chloride [Moles/Vol] 98 mmol/L Normal 98-109 [facility] Comment on above: Performed By: #### I ELGBC #### [facility] ([id number]) [address] [place] [address] CO2 [Moles/Vol] 31 mmol/L Normal 22-32 [facility] Comment on above: Performed By: #### I ELGBC #### [facility] ([id number]) [address] [place] [address] Creatinine [Mass/Vol] 1.9 mg/dL High 0.7-1.2 [facility] Comment on above: Result Comment: METH OD TRACEABLE TO IDMS STANDARD Performed By: #### [facility] #### [facility] ([id number]) [address] [place] [address] GFR/1.73 sq M.predicted among non-blacks MDRD (S/P/Bld) [Vol rate/Area] 40 mL/min/{1.73_m2} Low >59 [facility] Comment on above: Result Comment: Reported eGFR is based on the CKD-EPI 2020 equation that does not use a race coefficient. Performed By: #### [facility] #### [facility] ([id number]) [address] [place] [address] Glucose [Mass/Vol] 72 mg/dL Normal 65-99 [facility] Comment on above: Performed By: #### I [facility] #### [facility] ([id number]) [address] [place] [address] Potassium [Moles/Vol] 3.6 mmol/L Normal 3.5-5.0 [facility] Comment on above: Performed By: #### I [facility] #### [facility] ([id number]) [address] [place] [address] Sodium [Moles/Vol] 139 mmol/L Normal 134-146 [facility] Comment on above: Performed By: #### I ELGB #### [facility] ([id number]) [address] [place] [address] Urea nitrogen [Mass/Vol] 31 mg/dL High 6-23 [facility] Comment on above: Performed By: #### I ELGB #### [facility] ([id number]) [address] [place] [address] PROTIME AND INRon 06-04-2024 INR Coag (PPP) [Relative time] 1.3 {INR} High 0.8-1.1 [facility] Comment on above: Performed By: #### P INR #### [facility] ([id number]) [address] [place] [address] PT Coag (PPP) [Time] 14.5 s High 9.8-13.2 [facility] Comment on above: Performed By: #### P INR #### 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 Normal [facility] Comment on above: Result Comment: Elec tronically [...] by: HASEEB Technologist: TARAN [place] [facility] CHEMISTRYOrdered By: SYSTEM SYSTEM on 10-19-2023 Creatinine [...] amount in ml's: 150 Normal [facility] Consent for Treatmenton 10-03 Consent for Treatment [id number]#1.00TIFF Normal [facility] Creatinineon 10-19-2023 Creatinine [Mass/Vol] 1.6 mg/dL High 0.5-1.3 [facility] Comment on above: Performed By: #### 2 [id number] #### [facility] [address] [place] [address] Physician Orderon 10-19-2023 Physician Order [id number]#1.00TIFF Normal [facility] eGFRon 10-19-2023 eGFR 50 mL/min/1.73 m2 Low >=59 [facility] Comment on above: Order Comment: Order added by Discern Expert. Performed By: #### 1 [id number] #### [facility] [address] [place] [address] Outside Progress Noteon 10-03 Outside Progress Note [id number]#1.00TIFF Normal [facility] Physician Orderon 10-18-2023 Physician Order [id number]#1.00TIF F Normal [facility] Physician Order [id number]#1.00TIFF Normal [facility] Basophils Auto (Bld) [#/Vol] on 10-06-2023 Basophils (Bld) [#/Vol] 0.0 10 3/uL 0.0-0.1 [facility] Basophils/100 WBC Auto (Bld) on 10-06-2023 Basophils/100 WBC (Bld) 0.3 % 0.2-2.0 [facility] Eosinophils/100 WBC Auto (Bl d)on 10-06-2023 Eosinophils/100 WBC (Bld) 1.9 % 0.9-7.0 [facility] Erythrocyte distribution wid th Auto (RBC) [Ratio]on 10-06-2023 Erythrocyte distribution width (RBC) [Ratio] 19.9 % High 11.0-15.0 [facility] Estimated glomerular filtrat ion rate (GFR) non- Americanon 10-06-2023 GFR/1.73 sq M.predicted among non-blacks MDRD (S/P/Bld) [Vol rate/Area] 42 mL/min/{1.73_m2} Low >=60 [facility] Globulin Calc (S) [Mass/Vol] on 10-06-2023 Globulin (S) [Mass/Vol] 4.3 g/dL [facility] Hematocrit Auto (Bld) [Volum e fraction]on 10-06-2023 Hematocrit (Bld) [Volume fraction] 28.3 % Low 42.0-54.0 [facility] Hemoglobin [Mass/volume] in Bloodon 10-06-2023 Hemoglobin (Bld) [Mass/Vol] 8.4 g/dL Low 14.0-18.0 [facility] Laboratory - Chemistry and C hemistry - challengeon 10-06-2023 Albumin [Mass/Vol] 2.1 g/dL Low 3.4-5.0 [facility] ALP [Catalytic activity/Vol] 133 U/L High 46-116 [facility] ALT [Catalytic activity/Vol] 18 U/L 16-63 [facility] AST [Catalytic activity/Vol] 20 U/L 15-37 [facility] Bilirubin [Mass/Vol] 0.3 mg/dL 0.2-1.0 [facility] Calcium [Mass/Vol] 9.4 mg/dL 8.5-10.1 [facility] Chloride [Moles/Vol] 103 mmol/L 98-107 [facility] CO2 [Moles/Vol] 23.7 mmol/L 21.0-32.0 [facility] Creatinine [Mass/Vol] 1.67 mg/dL High 0.70-1.30 [facility] GFR/1.73 sq M.predicted MDRD (S/P/Bld) [Vol rate/Area] 52 mL/min/{1.73_m2} Low >=60 [facility] Glucose [Mass/Vol] 91 mg/dL 74-106 [facility] Magnesium [Mass/Vol] 1.6 mg/dL Low 1.8-2.4 [facility] Potassium [Moles/Vol] 4.8 mmol/L 3.5-5.1 [facility] Protein [Mass/Vol] 6.4 g/dL 6.4-8.2 [facility] Sodium [Moles/Vol] 136 mmol/L 136-145 [facility] Urea nitrogen [Mass/Vol] 29.0 mg/dL High 7.0-18.0 [facility] Urea nitrogen/Creatinine [Mass ratio] 17.4 mg/mg [facility] - Hematology and Cell countson 10-06-2023 ESR (Bld) [Velocity] mm/h High <=20 [facility] Immature granulocytes/100 WBC (Bld) 1.5 % High 0.0-0.5 [facility] Leukocytes [#/volume] correc jorge for nucleated erythrocytes in Blood by Automated counon 10-06-2023 WBC corrected for nucl RBC Auto (Bld) [#/Vol] 11.6 10 3/uL High 4.0-11.0 [facility] Lymphocytes Auto (Bld) [#/Vo l]on 10-06-2023 Lymphocytes (Bld) [#/Vol] 1.5 10 3/uL 1.2-3.8 [facility] Lymphocytes/100 WBC Auto (Bl d)on 10-06-2023 Lymphocytes/100 WBC (Bld) 12.9 % Low 20.5-60.0 [facility] MCH Auto (RBC) [Entitic mass ]on 10-06-2023 MCH (RBC) [Entitic mass] 22.5 pg Low 25.9-34.0 [facility] MCHC Auto (RBC) [Mass/Vol]on 10-06-2023 MCHC (RBC) [Mass/Vol] 29.7 g/dL Low 29.9-35.2 [facility] MCV Auto (RBC) [Entitic vol] on 10-06-2023 MCV (RBC) [Entitic vol] 75.9 fL Low 80.0-94.0 [facility] Monocytes Auto (Bld) [#/Vol] on 10-06-2023 Monocytes (Bld) [#/Vol] 1.3 10 3/uL High 0.3-0.8 [facility] Monocytes/100 WBC Auto (Bld) on 10-06-2023 Monocytes/100 WBC (Bld) 10.9 % 1.7-12.0 [facility] Neutrophils Auto (Bld) [#/Vo l]on 10-06-2023 Neutrophils (Bld) [#/Vol] 8.4 10 3/uL High 1.4-6.5 [facility] Neutrophils/100 WBC Auto (Bl d)on 10-06-2023 Neutrophils/100 WBC (Bld) 72.5 % 43.0-75.0 [facility] No Panel Informationon 10-05 Eosinophils # (Auto) 0.2 10 3/uL 0.0-0.7 [facility] Immature Granulocyte # (Auto) 0.17 10 3/uL High 0.00-0.03 [facility] Platelet mean volume Auto (B ld) [Entitic vol]on 10-06-2023 Platelet mean volume (Bld) [Entitic vol] 10.3 fL 9.5-13.5 [facility] Platelets Auto (Bld) [#/Vol] on 10-06-2023 Platelets (Bld) [#/Vol] 233 10 3/uL 150-450 [facility] RBC Auto (Bld) [#/Vol]on RBC (Bld) [#/Vol] 3.73 10 6/uL Low 4.70-6.10 [facility] Serum or plasma albumin/glob ulin mass ratioon 10-06-2023 Albumin/Globulin [Mass ratio] 0.5 {ratio} [facility] Serum or plasma anion gap de terminationon 10-06-2023 Anion gap [Moles/Vol] 14.1 mmol/L [facility] Basophils Auto (Bld) [#/Vol] on 10-05-2023 Basophils (Bld) [#/Vol] 0.1 10 3/uL 0.0-0.1 [facility] Basophils/100 WBC Auto (Bld) on 10-05-2023 Basophils/100 WBC (Bld) 0.6 % 0.2-2.0 [facility] Eosinophils/100 WBC Auto (Bl d)on 10-05-2023 Eosinophils/100 WBC (Bld) 3.3 % 0.9-7.0 [facility] Erythrocyte distribution wid th Auto (RBC) [Ratio]on 10-05-2023 Erythrocyte distribution width (RBC) [Ratio] 19.6 % High 11.0-15.0 [facility] Estimated glomerular filtrat ion rate (GFR) non- Americanon 10-05-2023 GFR/1.73 sq M.predicted among non-blacks MDRD (S/P/Bld) [Vol rate/Area] 41 mL/min/{1.73_m2} Low >=60 [facility] Globulin Calc (S) [Mass/Vol] on 10-05-2023 Globulin (S) [Mass/Vol] 4.7 g/dL [facility] Hematocrit Auto (Bld) [Volum e fraction]on 10-05-2023 Hematocrit (Bld) [Volume fraction] 29.9 % Low 42.0-54.0 [facility] Hemoglobin [Mass/volume] in Bloodon 10-05-2023 Hemoglobin (Bld) [Mass/Vol] 9.0 g/dL Low 14.0-18.0 [facility] Guy 10-05-2023 L Specimen: [id number] Received: 10/06/23 Status: COL[place] Nath Num: [id number] Spec Type: Surgical Subm Dr: Paula Elias DPM, MS Tissues: A DIGIT AMPUTATION (RT 2,3,4 AND 5 METATARSAL AM) Procedures: HE/6, Gross/Micro L4, Decalcification Age/ Patient Sex Location Account Attending Physician Solomon Feldman SR 58/M LABELL [id number] Paula Elias DPM, MS SPEC NUM: [id number] RECD: 10/06/23 STATUS: [place] NATH NUM: [id number] SHAKIRA: 10/05/[address]: Paula Elias DPM, [...] specimen demonstrates firm, yellow spongy bone matrix. Technical Implementation Lead sections are submitted as follows: A1: Skin and soft tissue margins A2: Second digit, bone margin; #1 proximal phalangeal margin (following decal) A3: Third digit, bone margin; #2 proximal phalangeal margin (following decal) A4: Fourth digit, bone margin; #3 proximal phalangeal margin (following decal) A5: Fifth digit, bone margin; #4 proximal phalangeal margin (following decal) Specimen: [id number] Received: 10/06/23 Status: [place] Nath Num: [id number] Spec Type: Surgical Subm Dr: Paula Elias,LINDSEY, MS Tissues: A DIGIT AMPUTATION (RT 2,3,4 AND 5 METATARSAL AM) Procedures: LULU/Ramirez, Gross/Micro L4, Decalcification Patient: Solomon Feldman SR [id number] (Continued) Specimen: [id number] Received: 10/06/23 (Continued) Gross Description (Continued) Signed (signature on file) Padmini Linn MD 10/10/23 1542 Specimen: [id number] Received: 10/06/23 Status: [place] Nath Num: [id number] Spec Type: Surgical Subm Dr: Paula Elias DPM, MS Tissues: A DIGIT AMPUTATION (RT 2,3,4 AND 5 METATARSAL AM) Procedures: HE/6, Gross/Micro L4, Decalcification Patient: Solomon Feldman SR [id number] (Continued) Specimen: [id number] Received: 10/06/23 (Continued) Gross Description (Continued) A6: Full-thickness section to include skin, underlying soft tissue and bone (following decal) Clinical history: None given CPT Codes 59163 FOREFOOT AND DIGITS Specimen: [id number] Received: 10/06/23 Status: [place] Nath Num: [id number] Spec Type: Surgical Subm Dr: Paula Elias,LINDSEY, MS Tissues: A DIGIT AMPUTATION (RT 2,3,4 AND 5 METATARSAL AM) Procedures: HE/6, Gross/Micro L4, Decalcification Patient: Solomon Feldman SR [id number] (Continued) Signed (signature on file) Padmini Linn MD 10/10/23 1542 Normal [facility] - Chemistry and C hemistry - challengeon 10-05-2023 Albumin [Mass/Vol] 2.2 g/dL Low 3.4-5.0 [facility] ALP [Catalytic activity/Vol] 140 U/L High 46-116 [facility] ALT [Catalytic activity/Vol] 18 U/L 16-63 [facility] AST [Catalytic activity/Vol] 22 U/L 15-37 [facility] Bilirubin [Mass/Vol] 0.5 mg/dL 0.2-1.0 [facility] Calcium [Mass/Vol] 9.2 mg/dL 8.5-10.1 [facility] Chloride [Moles/Vol] 100 mmol/L 98-107 [facility] CO2 [Moles/Vol] 22.6 mmol/L 21.0-32.0 [facility] Creatinine [Mass/Vol] 1.74 mg/dL High 0.70-1.30 [facility] GFR/1.73 sq M.predicted MDRD (S/P/Bld) [Vol rate/Area] 49 mL/min/{1.73_m2} Low >=60 [facility] Glucose [Mass/Vol] 162 mg/dL High 74-106 [facility] Magnesium [Mass/Vol] 1.7 mg/dL Low 1.8-2.4 [facility] Potassium [Moles/Vol] 5.3 mmol/L High 3.5-5.1 [facility] Protein [Mass/Vol] 6.9 g/dL 6.4-8.2 [facility] Sodium [Moles/Vol] 133 mmol/L Low 136-145 [facility] Urea nitrogen [Mass/Vol] 30.0 mg/dL High 7.0-18.0 [facility] Urea nitrogen/Creatinine [Mass ratio] 17.2 mg/mg [facility] Laboratory - Hematology and Cell countson 10-05-2023 ESR (Bld) [Velocity] 130 mm/h High <=20 [facility] Immature granulocytes/100 WBC (Bld) 1.3 % High 0.0-0.5 [facility] Leukocytes [#/volume] correc jorge for nucleated erythrocytes in Blood by Automated counon 10-05-2023 WBC corrected for nucl RBC Auto (Bld) [#/Vol] 12.6 10 3/uL High 4.0-11.0 [facility] Lymphocytes Auto (Bld) [#/Vo l]on 10-05-2023 Lymphocytes (Bld) [#/Vol] 1.3 10 3/uL 1.2-3.8 [facility] Lymphocytes/100 WBC Auto (Bl d)on 10-05-2023 Lymphocytes/100 WBC (Bld) 10.1 % Low 20.5-60.0 [facility] MCH Auto (RBC) [Entitic mass ]on 10-05-2023 MCH (RBC) [Entitic mass] 22.7 pg Low 25.9-34.0 [facility] MCHC Auto (RBC) [Mass/Vol]on 10-05-2023 MCHC (RBC) [Mass/Vol] 30.1 g/dL 29.9-35.2 [facility] MCV Auto (RBC) [Entitic vol] on 10-05-2023 MCV (RBC) [Entitic vol] 75.3 fL Low 80.0-94.0 [facility] Monocytes Auto (Bld) [#/Vol] on 10-05-2023 Monocytes (Bld) [#/Vol] 1.4 10 3/uL High 0.3-0.8 [facility] Monocytes/100 WBC Auto (Bld) on 10-05-2023 Monocytes/100 WBC (Bld) 10.9 % 1.7-12.0 [facility] Neutrophils Auto (Bld) [#/Vo l]on 10-05-2023 Neutrophils (Bld) [#/Vol] 9.3 10 3/uL High 1.4-6.5 [facility] Neutrophils/100 WBC Auto (Bl d)on 10-05-2023 Neutrophils/100 WBC (Bld) 73.8 % 43.0-75.0 [facility] No Panel Informationon 10-04 Eosinophils # (Auto) 0.4 10 3/uL 0.0-0.7 [facility] Immature Granulocyte # (Auto) 0.16 10 3/uL High 0.00-0.03 [facility] Platelet mean volume Auto (B ld) [Entitic vol]on 10-05-2023 Platelet mean volume (Bld) [Entitic vol] 11.3 fL 9.5-13.5 [facility] Platelets Auto (Bld) [#/Vol] on 10-05-2023 Platelets (Bld) [#/Vol] 203 10 3/uL 150-450 [facility] RBC Auto (Bld) [#/Vol]on RBC (Bld) [#/Vol] 3.97 10 6/uL Low 4.70-6.10 [facility] Serum or plasma albumin/glob ulin mass ratioon 10-05-2023 Albumin/Globulin [Mass ratio] 0.5 {ratio} [facility] Serum or plasma anion gap de terminationon 10-05-2023 Anion gap [Moles/Vol] 15.7 mmol/L [facility] Basophils Auto (Bld) [#/Vol] on 10-04-2023 Basophils (Bld) [#/Vol] 0.1 10 3/uL 0.0-0.1 [facility] Basophils/100 WBC Auto (Bld) on 10-04-2023 Basophils/100 WBC (Bld) 0.5 % 0.2-2.0 [facility] Eosinophils/100 WBC Auto (Bl d)on 10-04-2023 Eosinophils/100 WBC (Bld) 3.6 % 0.9-7.0 [facility] Erythrocyte distribution wid th Auto (RBC) [Ratio]on 10-04-2023 Erythrocyte distribution width (RBC) [Ratio] 19.6 % High 11.0-15.0 [facility] Estimated glomerular filtrat ion rate (GFR) non- Americanon 10-04-2023 GFR/1.73 sq M.predicted among non-blacks MDRD (S/P/Bld) [Vol rate/Area] 44 mL/min/{1.73_m2} Low >=60 [facility] Globulin Calc (S) [Mass/Vol] on 10-04-2023 Globulin (S) [Mass/Vol] 4.3 g/dL [facility] Hematocrit Auto (Bld) [Volum e fraction]on 10-04-2023 Hematocrit (Bld) [Volume fraction] 26.8 % Low 42.0-54.0 [facility] Hemoglobin [Mass/volume] in Bloodon 10-04-2023 Hemoglobin (Bld) [Mass/Vol] 7.9 g/dL Low 14.0-18.0 [facility] Laboratory - Chemistry and C hemistry - challengeon 10-04-2023 Albumin [Mass/Vol] 1.9 g/dL Low 3.4-5.0 [facility] ALP [Catalytic activity/Vol] 135 U/L High 46-116 [facility] ALT [Catalytic activity/Vol] 16 U/L 16-63 [facility] AST [Catalytic activity/Vol] 19 U/L 15-37 [facility] Bilirubin [Mass/Vol] 0.4 mg/dL 0.2-1.0 [facility] Calcium [Mass/Vol] 7.8 mg/dL Low 8.5-10.1 [facility] Chloride [Moles/Vol] 102 mmol/L 98-107 [facility] CO2 [Moles/Vol] 25.0 mmol/L 21.0-32.0 [facility] Creatinine [Mass/Vol] 1.61 mg/dL High 0.70-1.30 [facility] GFR/1.73 sq M.predicted MDRD (S/P/Bld) [Vol rate/Area] 54 mL/min/{1.73_m2} Low >=60 [facility] Glucose [Mass/Vol] 136 mg/dL High 74-106 [facility] Magnesium [Mass/Vol] 1.7 mg/dL Low 1.8-2.4 [facility] Potassium [Moles/Vol] 5.1 mmol/L 3.5-5.1 [facility] Protein [Mass/Vol] 6.2 g/dL Low 6.4-8.2 [facility] Sodium [Moles/Vol] 134 mmol/L Low 136-145 [facility] Urea nitrogen [Mass/Vol] 25.0 mg/dL High 7.0-18.0 [facility] Urea nitrogen/Creatinine [Mass ratio] 15.5 mg/mg [facility] Laboratory - Hematology and Cell countson 10-04-2023 ESR (Bld) [Velocity] 117 mm/h High <=20 [facility] Immature granulocytes/100 WBC (Bld) 0.9 % High 0.0-0.5 [facility] Leukocytes [#/volume] correc jorge for nucleated erythrocytes in Blood by Automated counon 10-04-2023 WBC corrected for nucl RBC Auto (Bld) [#/Vol] 11.5 10 3/uL High 4.0-11.0 [facility] Lymphocytes Auto (Bld) [#/Vo l]on 10-04-2023 Lymphocytes (Bld) [#/Vol] 1.3 10 3/uL 1.2-3.8 [facility] Lymphocytes/100 WBC Auto (Bl d)on 10-04-2023 Lymphocytes/100 WBC (Bld) 10.9 % Low 20.5-60.0 [facility] MCH Auto (RBC) [Entitic mass ]on 10-04-2023 MCH (RBC) [Entitic mass] 22.4 pg Low 25.9-34.0 [facility] MCHC Auto (RBC) [Mass/Vol]on 10-04-2023 MCHC (RBC) [Mass/Vol] 29.5 g/dL Low 29.9-35.2 [facility] MCV Auto (RBC) [Entitic vol] on 10-04-2023 MCV (RBC) [Entitic vol] 75.9 fL Low 80.0-94.0 [facility] Monocytes Auto (Bld) [#/Vol] on 10-04-2023 Monocytes (Bld) [#/Vol] 1.4 10 3/uL High 0.3-0.8 [facility] Monocytes/100 WBC Auto (Bld) on 10-04-2023 Monocytes/100 WBC (Bld) 12.4 % High 1.7-12.0 [facility] Neutrophils Auto (Bld) [#/Vo l]on 10-04-2023 Neutrophils (Bld) [#/Vol] 8.3 10 3/uL High 1.4-6.5 [facility] Neutrophils/100 WBC Auto (Bl d)on 10-04-2023 Neutrophils/100 WBC (Bld) 71.7 % 43.0-75.0 [facility] No Panel Informationon 10-03 Eosinophils # (Auto) 0.4 10 3/uL 0.0-0.7 [facility] Immature Granulocyte # (Auto) 0.10 10 3/uL High 0.00-0.03 [facility] Platelet mean volume Auto (B ld) [Entitic vol]on 10-04-2023 Platelet mean volume (Bld) [Entitic vol] 11.5 fL 9.5-13.5 [facility] Platelets Auto (Bld) [#/Vol] on 10-04-2023 Platelets (Bld) [#/Vol] 154 10 3/uL 150-450 [facility] RBC Auto (Bld) [#/Vol]on RBC (Bld) [#/Vol] 3.53 10 6/uL Low 4.70-6.10 [facility] Serum or plasma albumin/glob ulin mass ratioon 10-04-2023 Albumin/Globulin [Mass ratio] 0.4 {ratio} [facility] Serum or plasma anion gap de terminationon 10-04-2023 Anion gap [Moles/Vol] 12.1 [facility] Basophils Auto (Bld) [#/Vol] on 10-03-2023 Basophils (Bld) [#/Vol] 0.1 10 3/uL 0.0-0.1 [facility] Basophils/100 WBC Auto (Bld) on 10-03-2023 Basophils/100 WBC (Bld) 0.7 % 0.2-2.0 [facility] Eosinophils/100 WBC Auto (Bl d)on 10-03-2023 Eosinophils/100 WBC (Bld) 2.7 % 0.9-7.0 [facility] Erythrocyte distribution wid th Auto (RBC) [Ratio]on 10-03-2023 Erythrocyte distribution width (RBC) [Ratio] 19.2 % High 11.0-15.0 [facility] Estimated glomerular filtrat ion rate (GFR) non- Americanon 10-03-2023 GFR/1.73 sq M.predicted among non-blacks MDRD (S/P/Bld) [Vol rate/Area] 46 mL/min/{1.73_m2} Low >=60 [facility] Globulin Calc (S) [Mass/Vol] on 10-03-2023 Globulin (S) [Mass/Vol] 4.1 g/dL [facility] Hematocrit Auto (Bld) [Volum e fraction]on 10-03-2023 Hematocrit (Bld) [Volume fraction] 26.4 % Low 42.0-54.0 [facility] Hemoglobin [Mass/volume] in Bloodon 10-03-2023 Hemoglobin (Bld) [Mass/Vol] 8.1 g/dL Low 14.0-18.0 [facility] Laboratory - Chemistry and C hemistry - challengeon 10-03-2023 Albumin [Mass/Vol] 1.9 g/dL Low 3.4-5.0 [facility] ALP [Catalytic activity/Vol] 140 U/L High 46-116 [facility] ALT [Catalytic activity/Vol] 17 U/L 16-63 [facility] AST [Catalytic activity/Vol] 21 U/L 15-37 [facility] Bilirubin [Mass/Vol] 0.3 mg/dL 0.2-1.0 [facility] Calcium [Mass/Vol] 6.7 mg/dL Low 8.5-10.1 [facility] Chloride [Moles/Vol] 101 mmol/L 98-107 [facility] CO2 [Moles/Vol] 23.9 mmol/L 21.0-32.0 [facility] Creatinine [Mass/Vol] 1.57 mg/dL High 0.70-1.30 [facility] GFR/1.73 sq M.predicted MDRD (S/P/Bld) [Vol rate/Area] 55 mL/min/{1.73_m2} Low >=60 [facility] Glucose [Mass/Vol] 142 mg/dL High 74-106 [facility] Magnesium [Mass/Vol] 1.3 mg/dL Low 1.8-2.4 [facility] Potassium [Moles/Vol] 4.8 mmol/L 3.5-5.1 [facility] Protein [Mass/Vol] 6.0 g/dL Low 6.4-8.2 [facility] Sodium [Moles/Vol] 134 mmol/L Low 136-145 [facility] Urea nitrogen [Mass/Vol] 23.0 mg/dL High 7.0-18.0 [facility] Urea nitrogen/Creatinine [Mass ratio] 14.6 mg/mg [facility] Laboratory - Hematology and Cell countson 10-03-2023 ESR (Bld) [Velocity] mm/h High <=20 [facility] Immature granulocytes/100 WBC (Bld) 1.0 % High 0.0-0.5 [facility] Leukocytes [#/volume] correc jorge for nucleated erythrocytes in Blood by Automated counon 10-03-2023 WBC corrected for nucl RBC Auto (Bld) [#/Vol] 11.6 10 3/uL High 4.0-11.0 [facility] Lymphocytes Auto (Bld) [#/Vo l]on 10-03-2023 Lymphocytes (Bld) [#/Vol] 1.4 10 3/uL 1.2-3.8 [facility] Lymphocytes/100 WBC Auto (Bl d)on 10-03-2023 Lymphocytes/100 WBC (Bld) 12.1 % Low 20.5-60.0 [facility] MCH Auto (RBC) [Entitic mass ]on 10-03-2023 MCH (RBC) [Entitic mass] 23.2 pg Low 25.9-34.0 [facility] MCHC Auto (RBC) [Mass/Vol]on 10-03-2023 MCHC (RBC) [Mass/Vol] 30.7 g/dL 29.9-35.2 [facility] MCV Auto (RBC) [Entitic vol] on 10-03-2023 MCV (RBC) [Entitic vol] 75.6 fL Low 80.0-94.0 [facility] Monocytes Auto (Bld) [#/Vol] on 10-03-2023 Monocytes (Bld) [#/Vol] 1.3 10 3/uL High 0.3-0.8 [facility] Monocytes/100 WBC Auto (Bld) on 10-03-2023 Monocytes/100 WBC (Bld) 10.8 % 1.7-12.0 [facility] Neutrophils Auto (Bld) [#/Vo l]on 10-03-2023 Neutrophils (Bld) [#/Vol] 8.5 10 3/uL High 1.4-6.5 [facility] Neutrophils/100 WBC Auto (Bl d)on 10-03-2023 Neutrophils/100 WBC (Bld) 72.7 % 43.0-75.0 [facility] No Panel Informationon 10-02 Eosinophils # (Auto) 0.3 10 3/uL 0.0-0.7 [facility] Immature Granulocyte # (Auto) 0.12 10 3/uL High 0.00-0.03 [facility] Platelet mean volume Auto (B ld) [Entitic vol]on 10-03-2023 Platelet mean volume (Bld) [Entitic vol] 11.3 fL 9.5-13.5 [facility] Platelets Auto (Bld) [#/Vol] on 10-03-2023 Platelets (Bld) [#/Vol] 141 10 3/uL Low 150-450 [facility] RBC Auto (Bld) [#/Vol]on RBC (Bld) [#/Vol] 3.49 10 6/uL Low 4.70-6.10 [facility] Serum or plasma albumin/glob ulin mass ratioon 10-03-2023 Albumin/Globulin [Mass ratio] 0.5 {ratio} [facility] Serum or plasma anion gap de terminationon 10-03-2023 Anion gap [Moles/Vol] 13.9 mmol/L [facility] Basophils Auto (Bld) [#/Vol] on 10-02-2023 Basophils (Bld) [#/Vol] 0.0 10 3/uL 0.0-0.1 [facility] Basophils/100 WBC Auto (Bld) on 10-02-2023 Basophils/100 WBC (Bld) 0.4 % 0.2-2.0 [facility] Eosinophils/100 WBC Auto (Bl d)on 10-02-2023 Eosinophils/100 WBC (Bld) 2.2 % 0.9-7.0 [facility] Erythrocyte distribution wid th Auto (RBC) [Ratio]on 10-02-2023 Erythrocyte distribution width (RBC) [Ratio] 19.3 % High 11.0-15.0 [facility] Estimated glomerular filtrat ion rate (GFR) non- Americanon 10-02-2023 GFR/1.73 sq M.predicted among non-blacks MDRD (S/P/Bld) [Vol rate/Area] 41 mL/min/{1.73_m2} Low >=60 [facility] Globulin Calc (S) [Mass/Vol] on 10-02-2023 Globulin (S) [Mass/Vol] 4.2 g/dL [facility] Hematocrit Auto (Bld) [Volum e fraction]on 10-02-2023 Hematocrit (Bld) [Volume fraction] 26.1 % Low 42.0-54.0 [facility] Hemoglobin [Mass/volume] in Bloodon 10-02-2023 Hemoglobin (Bld) [Mass/Vol] 7.8 g/dL Low 14.0-18.0 [facility] Guy 10-02-2023 L Specimen: [id number] Received: 10/03/23 Status: [facility] Num: [id number] Spec Type: Surgical Subm Dr: Paula Elias DPM, MS Tissues: A DIGIT AMPUTATION (FIRST METATARSAL RT FOOT) Procedures: HE/2, Gross/Micro L4, Decalcification Age/ Patient Sex Location Account Attending Physician Solomon Feldman SR 58/M LABELL [id number] Paula Elias DPM, MS SPEC NUM: [id number] RECD: 10/03/23 STATUS: [facility] NUM: [id number] SHAKIRA: 10/02/[address]: Paula Elias DPM, [...] firm yellow- pink spongy bone matrix. A insurance verification representative longitudinal section is bisected and submitted following decalcification in cassettes A1?A2. Clinical history: Right diabetic foot infection CPT Codes 70107 Specimen: [id number] Received: 10/03/23 Status: [facility] Num: [id number] Spec Type: Surgical Subm Dr: Paula Elias,DPSarika, MS Tissues: A DIGIT AMPUTATION (FIRST METATARSAL RT FOOT) Procedures: HE/2, Gross/Micro L4, Decalcification Patient: Solomon Feldman SR [id number] (Continued) Signed (signature on file) Padmini Linn MD 10/05/23 1426 Normal [facility] Laboratory - Chemistry and C hemistry - challengeon 10-02-2023 Albumin [Mass/Vol] 2.1 g/dL Low 3.4-5.0 [facility] ALP [Catalytic activity/Vol] 131 U/L High 46-116 [facility] ALT [Catalytic activity/Vol] 17 U/L 16-63 [facility] AST [Catalytic activity/Vol] 13 U/L Low 15-37 [facility] Bilirubin [Mass/Vol] 0.3 mg/dL 0.2-1.0 [facility] Calcium [Mass/Vol] 6.6 mg/dL Low 8.5-10.1 [facility] Chloride [Moles/Vol] 105 mmol/L 98-107 [facility] CO2 [Moles/Vol] 24.3 mmol/L 21.0-32.0 [facility] Creatinine [Mass/Vol] 1.72 mg/dL High 0.70-1.30 [facility] GFR/1.73 sq M.predicted MDRD (S/P/Bld) [Vol rate/Area] 50 mL/min/{1.73_m2} Low >=60 [facility] Glucose [Mass/Vol] 156 mg/dL High 74-106 [facility] Magnesium [Mass/Vol] 1.5 mg/dL Low 1.8-2.4 [facility] Potassium [Moles/Vol] 4.0 mmol/L 3.5-5.1 [facility] Protein [Mass/Vol] 6.3 g/dL Low 6.4-8.2 [facility] Sodium [Moles/Vol] 139 mmol/L 136-145 [facility] Urea nitrogen [Mass/Vol] 27.0 mg/dL High 7.0-18.0 [facility] Urea nitrogen/Creatinine [Mass ratio] 15.7 mg/mg [facility] Laboratory - Hematology and Cell countson 10-02-2023 Immature granulocytes/100 WBC (Bld) 0.4 % 0.0-0.5 [facility] ESR (Bld) [Velocity] 110 mm/h High <=20 [facility] Laboratory - Microbiology an d Antimicrobial susceptibilityOrdered By: Truman Bryant on 10-02-2023 Microscopic observation Gram stain Nom (Unsp spec) [facility] Leukocytes [#/volume] correc jorge for nucleated erythrocytes in Blood by Automated counon 10-02-2023 WBC corrected for nucl RBC Auto (Bld) [#/Vol] 8.5 10 3/uL 4.0-11.0 [facility] Lymphocytes Auto (Bld) [#/Vo l]on 10-02-2023 Lymphocytes (Bld) [#/Vol] 1.5 10 3/uL 1.2-3.8 [facility] Lymphocytes/100 WBC Auto (Bl d)on 10-02-2023 Lymphocytes/100 WBC (Bld) 17.3 % Low 20.5-60.0 [facility] MCH Auto (RBC) [Entitic mass ]on 10-02-2023 MCH (RBC) [Entitic mass] 22.5 pg Low 25.9-34.0 [facility] MCHC Auto (RBC) [Mass/Vol]on 10-02-2023 MCHC (RBC) [Mass/Vol] 29.9 g/dL 29.9-35.2 [facility] MCV Auto (RBC) [Entitic vol] on 10-02-2023 MCV (RBC) [Entitic vol] 75.2 fL Low 80.0-94.0 [facility] Monocytes Auto (Bld) [#/Vol] on 10-02-2023 Monocytes (Bld) [#/Vol] 0.8 10 3/uL 0.3-0.8 [facility] Monocytes/100 WBC Auto (Bld) on 10-02-2023 Monocytes/100 WBC (Bld) 9.1 % 1.7-12.0 [facility] Neutrophils Auto (Bld) [#/Vo l]on 10-02-2023 Neutrophils (Bld) [#/Vol] 6.0 10 3/uL 1.4-6.5 [facility] Neutrophils/100 WBC Auto (Bl d)on 10-02-2023 Neutrophils/100 WBC (Bld) 70.6 % 43.0-75.0 [facility] No Panel Informationon 10-01 Eosinophils # (Auto) 0.2 10 3/uL 0.0-0.7 [facility] Immature Granulocyte # (Auto) 0.03 10 3/uL 0.00-0.03 [facility] Fungal Smear Result [facility] Miscellaneous Test Comment See comment [facility] Comment on above: Specimen Source: JONO TRT - Foot Right - Foot Rt - [id number] No Panel InformationOrdered By: Truman Bryant on 10-02-2023 Tissue Culture [facility] No Panel InformationOrdered By: Paula Elias on 10-02-2023 Acid Fast Smear [facility] AF[employer] Specimen Processing [facility] Platelet mean volume Auto (B ld) [Entitic vol]on 10-02-2023 Platelet mean volume (Bld) [Entitic vol] 10.6 fL 9.5-13.5 [facility] Platelets Auto (Bld) [#/Vol] on 10-02-2023 Platelets (Bld) [#/Vol] 142 10 3/uL Low 150-450 [facility] RBC Auto (Bld) [#/Vol]on RBC (Bld) [#/Vol] 3.47 10 6/uL Low 4.70-6.10 [facility] Serum or plasma albumin/glob ulin mass ratioon 10-02-2023 Albumin/Globulin [Mass ratio] 0.5 {ratio} [facility] Serum or plasma anion gap de terminationon 10-02-2023 Anion gap [Moles/Vol] 13.7 [facility] Bas[facility] Auto (Bld) [#/Vol] on 10-01-2023 Basophils (Bld) [#/Vol] 0.0 10 3/uL 0.0-0.1 [facility] Basophils/100 WBC Auto (Bld) on 10-01-2023 Basophils/100 WBC (Bld) 0.4 % 0.2-2.0 [facility] Eosinophils/100 WBC Auto (Bl d)on 10-01-2023 Eosinophils/100 WBC (Bld) 1.7 % 0.9-7.0 [facility] Erythrocyte distribution wid th Auto (RBC) [Ratio]on 10-01-2023 Erythrocyte distribution width (RBC) [Ratio] 18.5 % High 11.0-15.0 [facility] Estimated glomerular filtrat ion rate (GFR) non- Americanon 10-01-2023 GFR/1.73 sq M.predicted among non-blacks MDRD (S/P/Bld) [Vol rate/Area] 27 mL/min/{1.73_m2} Low >=60 [facility] Globulin Calc (S) [Mass/Vol] on 10-01-2023 Globulin (S) [Mass/Vol] 4.0 g/dL [facility] Hematocrit Auto (Bld) [Volum e fraction]on 10-01-2023 Hematocrit (Bld) [Volume fraction] 26.5 % Low 42.0-54.0 [facility] Hemoglobin [Mass/volume] in Bloodon 10-01-2023 Hemoglobin (Bld) [Mass/Vol] 8.0 g/dL Low 14.0-18.0 [facility] Laboratory - Chemistry and C hemistry - challengeon 10-01-2023 Lactate [Moles/Vol] 1.8 mmol/L 0.4-2.0 [facility] Albumin [Mass/Vol] 1.9 g/dL Low 3.4-5.0 [facility] ALP [Catalytic activity/Vol] 113 U/L 46-116 [facility] ALT [Catalytic activity/Vol] 17 U/L 16-63 [facility] AST [Catalytic activity/Vol] 14 U/L Low 15-37 [facility] Bilirubin [Mass/Vol] 0.3 mg/dL 0.2-1.0 [facility] Calcium [Mass/Vol] 5.7 mg/dL Low 8.5-10.1 [facility] Comment on above: RESULTS CALLED TO Patricio OlguinRN)@BY Marybel Hawkins MLT at 0619 Chloride [Moles/Vol] 102 mmol/L 98-107 [facility] CO2 [Moles/Vol] 20.4 mmol/L Low 21.0-32.0 [facility] Creatinine [Mass/Vol] 2.46 mg/dL High 0.70-1.30 [facility] GFR/1.73 sq M.predicted MDRD (S/P/Bld) [Vol rate/Area] 33 mL/min/{1.73_m2} Low >=60 [facility] Glucose [Mass/Vol] 67 mg/dL Low 74-106 [facility] Magnesium [Mass/Vol] 0.8 mg/dL Low 1.8-2.4 [facility] Comment on above: RESULTS CALLED TO Patricio CORREA)@BY [address] at 0601 Potassium [Moles/Vol] 3.1 mmol/L Low 3.5-5.1 [facility] Protein [Mass/Vol] 5.9 g/dL Low 6.4-8.2 [facility] Sodium [Moles/Vol] 138 mmol/L 136-145 [facility] Urea nitrogen [Mass/Vol] 28.0 mg/dL High 7.0-18.0 [facility] Urea nitrogen/Creatinine [Mass ratio] 11.4 mg/mg [facility] Laboratory - Hematology and Cell countson 10-01-2023 ESR (Bld) [Velocity] 96 mm/h High <=20 [facility] Immature granulocytes/100 WBC (Bld) 0.6 % High 0.0-0.5 [facility] Leukocytes [#/volume] correc jorge for nucleated erythrocytes in Blood by Automated counon 10-01-2023 WBC corrected for nucl RBC Auto (Bld) [#/Vol] 10.0 10 3/uL 4.0-11.0 [facility] Lymphocytes Auto (Bld) [#/Vo l]on 10-01-2023 Lymphocytes (Bld) [#/Vol] 1.3 10 3/uL 1.2-3.8 [facility] Lymphocytes/100 WBC Auto (Bl d)on 10-01-2023 Lymphocytes/100 WBC (Bld) 12.8 % Low 20.5-60.0 [facility] MCH Auto (RBC) [Entitic mass ]on 10-01-2023 MCH (RBC) [Entitic mass] 22.4 pg Low 25.9-34.0 [facility] MCHC Auto (RBC) [Mass/Vol]on 10-01-2023 MCHC (RBC) [Mass/Vol] 30.2 g/dL 29.9-35.2 [facility] MCV Auto (RBC) [Entitic vol] on 10-01-2023 MCV (RBC) [Entitic vol] 74.2 fL Low 80.0-94.0 [facility] Monocytes Auto (Bld) [#/Vol] on 10-01-2023 Monocytes (Bld) [#/Vol] 0.7 10 3/uL 0.3-0.8 [facility] Monocytes/100 WBC Auto (Bld) on 10-01-2023 Monocytes/100 WBC (Bld) 6.9 % 1.7-12.0 [facility] Neutrophils Auto (Bld) [#/Vo l]on 10-01-2023 Neutrophils (Bld) [#/Vol] 7.8 10 3/uL High 1.4-6.5 [facility] Neutrophils/100 WBC Auto (Bl d)on 10-01-2023 Neutrophils/100 WBC (Bld) 77.6 % High 43.0-75.0 [facility] No Panel Informationon 09-30 C-Reactive Protein, Quantitative 10.58 mg/dL High <=0.50 [facility] Eosinophils # (Auto) 0.2 10 3/uL 0.0-0.7 [facility] Immature Granulocyte # (Auto) 0.06 10 3/uL High 0.00-0.03 [facility] Troponin I High Sensitivity 8.3 pg/mL 4.0-76.1 [facility] Comment on above: CUT-OFF POINTS HAVE [...] Partial Pressure CO2 30.4 mm[Hg] Low 40.0-52.0 [facility] Venous Blood pH 7.421 7.330-7.43 0 [facility] Platelet mean volume Auto (B ld) [Entitic vol]on 10-01-2023 Platelet mean volume (Bld) [Entitic vol] 11.2 fL 9.5-13.5 [facility] Platelets Auto (Bld) [#/Vol] on 10-01-2023 Platelets (Bld) [#/Vol] 164 10 3/uL 150-450 [facility] RBC Auto (Bld) [#/Vol]on RBC (Bld) [#/Vol] 3.57 10 6/uL Low 4.70-6.10 [facility] Serum or plasma albumin/glob ulin mass ratioon 10-01-2023 Albumin/Globulin [Mass ratio] 0.5 {ratio} [facility] Serum or plasma anion gap de terminationon 10-01-2023 Anion gap [Moles/Vol] 18.7 mmol/L [facility] Automated epithelial cells c ount in urine sediment (number/area)on 09-30-2023 Epithelial cells Auto (Urine sed) [#/Area] NONE SEEN #/LPF NONE/RARE [facility] Automated leukocytes count i n urine sediment (number/area)on 09-30-2023 WBC Auto (Urine sed) [#/Area] NONE SEEN #/HPF 0-2 [facility] Automated urine specific gra vity by refractometryon 09-30-2023 Specific gravity Refractometry automated (U) [Rel density] <=1.005 Abnormal 1.005-1.02 5 [facility] Basophils Auto (Bld) [#/Vol] on 09-30-2023 Basophils (Bld) [#/Vol] 0.1 10 3/uL 0.0-0.1 [facility] Basophils/100 WBC Auto (Bld) on 09-30-2023 Basophils/100 WBC (Bld) 0.4 % 0.2-2.0 [facility] Bilirubin Auto test strip (U ) [Mass/Vol]on 09-30-2023 Bilirubin (U) [Mass/Vol] Negative NEGATIVE [facility] Casts typing in urine sedime nt by light microscopyon 09-30-2023 Casts LM Nom (Urine sed) NONE SEEN #/LPF NONE SEEN [facility] Color Auto (U)on 09-30-2023 Color (U) LT. YELLOW YELLOW [facility] Eosinophils/100 WBC Auto (Bl d)on 09-30-2023 Eosinophils/100 WBC (Bld) 1.4 % 0.9-7.0 [facility] Erythrocyte distribution wid th Auto (RBC) [Ratio]on 09-30-2023 Erythrocyte distribution width (RBC) [Ratio] 19.0 % High 11.0-15.0 [facility] Estimated glomerular filtrat ion rate (GFR) non- Americanon 09-30-2023 GFR/1.73 sq M.predicted among non-blacks MDRD (S/P/Bld) [Vol rate/Area] 19 mL/min/{1.73_m2} Low >=60 [facility] Globulin Calc (S) [Mass/Vol] on 09-30-2023 Globulin (S) [Mass/Vol] 4.8 g/dL [facility] Hematocrit Auto (Bld) [Volum e fraction]on 09-30-2023 Hematocrit (Bld) [Volume fraction] 32.9 % Low 42.0-54.0 [facility] Hemoglobin [Mass/volume] in Bloodon 09-30-2023 Hemoglobin (Bld) [Mass/Vol] 10.0 g/dL Low 14.0-18.0 [facility] INR in Platelet poor plasma by Coagulation assayon 09-30-2023 INR Coag (PPP) [Relative time] 1.23 {INR} [facility] Comment on above: DESIRED INR:2.0-3.0 CONDITIONS NOT LISTED BELOW2.5-3.5 FOR PROSTHETIC HEART VALVE REPLACEMENT2.5-3.5 RECURRENT THROMBOSIS Ketones Auto test strip (U) [Mass/Vol]on 09-30-2023 Ketones (U) [Mass/Vol] Negative NEGATIVE [facility] Laboratory - Chemistry and C hemistry - challengeon 09-30-2023 Lactate [Moles/Vol] 4.2 mmol/L High 0.4-2.0 [facility] Comment on above: RESULTS CALLED TO Patricio Genao (RN)@BY [address] at 2312 Albumin [Mass/Vol] 2.4 g/dL Low 3.4-5.0 [facility] ALP [Catalytic activity/Vol] 145 U/L High 46-116 [facility] ALT [Catalytic activity/Vol] 17 U/L 16-63 [facility] AST [Catalytic activity/Vol] 21 U/L 15-37 [facility] Bilirubin [Mass/Vol] 0.4 mg/dL 0.2-1.0 [facility] Calcium [Mass/Vol] 5.8 mg/dL Low 8.5-10.1 [facility] Comment on above: RESULTS CALLED TO GIOVANNA CASTANON @BY [place] at 1645 Chloride [Moles/Vol] 97 mmol/L Low 98-107 [facility] CO2 [Moles/Vol] 18.3 mmol/L Low 21.0-32.0 [facility] Creatinine [Mass/Vol] 3.43 mg/dL High 0.70-1.30 [facility] GFR/1.73 sq M.predicted MDRD (S/P/Bld) [Vol rate/Area] 22 mL/min/{1.73_m2} Low >=60 [facility] Glucose [Mass/Vol] 208 mg/dL High 74-106 [facility] Magnesium [Mass/Vol] 0.5 mg/dL Low 1.8-2.4 [facility] Comment on above: RESULTS CALLED TO Giovanna Castanon @BY Marybel Hawkins MLT [id number] Natriuretic peptide B (Bld) [Mass/Vol] 611.0 pg/mL <=900.0 [facility] Potassium [Moles/Vol] 3.9 mmol/L 3.5-5.1 [facility] Protein [Mass/Vol] 7.2 g/dL 6.4-8.2 [facility] Sodium [Moles/Vol] 137 mmol/L 136-145 [facility] Urea nitrogen [Mass/Vol] 34.0 mg/dL High 7.0-18.0 [facility] Urea nitrogen/Creatinine [Mass ratio] 9.9 mg/mg [facility] - Hematology and Cell countson 09-30-2023 ESR (Bld) [Velocity] 130 mm/h High <=20 [facility] Immature granulocytes/100 WBC (Bld) 0.6 % High 0.0-0.5 [facility] Leukocytes [#/volume] correc jorge for nucleated erythrocytes in Blood by Automated counon 09-30-2023 WBC corrected for nucl RBC Auto (Bld) [#/Vol] 13.9 10 3/uL High 4.0-11.0 [facility] Lymphocytes Auto (Bld) [#/Vo l]on 09-30-2023 Lymphocytes (Bld) [#/Vol] 1.4 10 3/uL 1.2-3.8 [facility] Lymphocytes/100 WBC Auto (Bl d)on 09-30-2023 Lymphocytes/100 WBC (Bld) 10.1 % Low 20.5-60.0 [facility] MCH Auto (RBC) [Entitic mass ]on 09-30-2023 MCH (RBC) [Entitic mass] 22.7 pg Low 25.9-34.0 [facility] MCHC Auto (RBC) [Mass/Vol]on 09-30-2023 MCHC (RBC) [Mass/Vol] 30.4 g/dL 29.9-35.2 [facility] MCV Auto (RBC) [Entitic vol] on 09-30-2023 MCV (RBC) [Entitic vol] 74.6 fL Low 80.0-94.0 [facility] Monocytes Auto (Bld) [#/Vol] on 09-30-2023 Monocytes (Bld) [#/Vol] 0.9 10 3/uL High 0.3-0.8 [facility] Monocytes/100 WBC Auto (Bld) on 09-30-2023 Monocytes/100 WBC (Bld) 6.7 % 1.7-12.0 [facility] Mucus LM Ql (Urine sed)on Mucus Ql (Urine sed) NONE SEEN NONE SEEN [facility] Neutrophils Auto (Bld) [#/Vo l]on 09-30-2023 Neutrophils (Bld) [#/Vol] 11.2 10 3/uL High 1.4-6.5 [facility] Neutrophils/100 WBC Auto (Bl d)on 09-30-2023 Neutrophils/100 WBC (Bld) 80.8 % High 43.0-75.0 [facility] No Panel Informationon 09-29 Troponin I High Sensitivity 7.9 pg/mL 4.0-76.1 [facility] Comment on above: CUT-OFF POINTS HAVE [...] Partial Pressure CO2 29.6 mm[Hg] Low 40.0-52.0 [facility] Venous Blood pH 7.405 7.330-7.43 0 [facility] U[facility] Protein, Quantitative 14.76 mg/dL High <=0.50 [facility] Eosinophils # (Auto) 0.2 10 3/uL 0.0-0.7 [facility] Immature Granulocyte # (Auto) 0.09 10 3/uL High 0.00-0.03 [facility] No Panel InformationOrdered By: Chandrika Castanon on 09-30-2023 Blood Culture 2 [facility] Wound Culture [facility] Blood Culture 1 [facility] Platelet mean volume Auto (B ld) [Entitic vol]on 09-30-2023 Platelet mean volume (Bld) [Entitic vol] 10.9 fL 9.5-13.5 [facility] Platelets Auto (Bld) [#/Vol] on 09-30-2023 Platelets (Bld) [#/Vol] 227 10 3/uL 150-450 [facility] Protein Auto test strip (U) [Mass/Vol]on 09-30-2023 Protein (U) [Mass/Vol] Negative NEG/TRACE [facility] Prothrombin time (PT)on 09-04 PT Coag (PPP) [Time] 12.9 s High 9.0-11.6 [facility] RBC Auto (Bld) [#/Vol]on RBC (Bld) [#/Vol] 4.41 10 6/uL Low 4.70-6.10 [facility] Serum or plasma albumin/glob ulin mass ratioon 09-30-2023 Albumin/Globulin [Mass ratio] 0.5 {ratio} [facility] Serum or plasma anion gap de terminationon 09-30-2023 Anion gap [Moles/Vol] 25.6 mmol/L Fi [facility] Specific gravity Auto test s trip (U) [Rel density]on 09-30-2023 Specific gravity (U) [Rel density] CLEAR CLEAR [facility] Urine bacteria detection by automated methodon 09-30-2023 Bacteria Auto Ql (U) NONE SEEN #/HPF NONE SEEN [facility] Urine glucose measurement by test strip (mass/volume)on 09-30-2023 Glucose Test strip (U) [Mass/Vol] 500 mg/dL Abnormal NEGATIVE [facility] Urine hemoglobin detection b y automated test stripon 09-30-2023 Hemoglobin Auto test strip Ql (U) TRACE-I NEGATIVE [facility] Urine nitrite detection by a utomated test stripon 04-27-2024 Nitrite Auto test strip Ql (U) Negative NEGATIVE [facility] Urine sediment crystal ident ification by light microscopyon 09-30-2023 Crystals LM Nom (Urine sed) None Seen #/HPF None Seen [facility] Urine sediment leukocyte cou nt by microscopy (number/high power field)on 09-30-2023 WBC LM.HPF (Urine sed) [#/Area] NONE SEEN #/HPF NONE SEEN [facility] Urobilinogen Auto test strip (U) [Mass/Vol]on 09-30-2023 Urobilinogen Qn (U) 0.2 {Brendan'U}/dL 0.2-1.0 [facility] pH Auto test strip (U)on pH (U) 5.5 [pH] 5.0-9.0 [facility] Guy 09-21-2023 L Specimen: [id number] Received: 09/21/23 Status: SOUDaniel Req Num: [id number] Spec Type: Surgical Subm Dr: Paula Elias DPM, MS Tissues: A Bone Fragments - Other than Path Fracture Procedures: HE, Gross/Micro L3, Decalcification Age/ Patient Sex Location Account Attending Physician Solomon Feldman SR 58/M LABELL [id number] Paula Elias DPM, MS SPEC NUM: [id number] RECD: 09/21/23 STATUS: COLTON YAP NUM: [id number] SHAKIRA: 09/21/[address]: Paula Elias DPM, MS ENTERED: 09/21/[address] [facility] [address]: SPEC TYPE: Surgical DEPT: RAMSEY MARCANO ENTERED BY: [id number] RECV BY: [id number] ORDERED: HE, Gross/Micro L3, Decalcification ORDERED: HE, [...] excisional debridement with skin substitute. CPT Codes 86039, 70439 Specimen: [id number] Received: 09/21/23 Status: COLTON Nath Num: [id number] Spec Type: Surgical Subm Dr: Paula Elias,DPSarika, MS Tissues: A Bone Fragments - Other than Path Fracture Procedures: LULU, Gross/Micro L3, Decalcification Patient: Solomon Feldman SR [id number] (Continued) Signed (signature on file) Victor Hugo Sotelo MD 09/26/23 0843 Normal [facility] Laboratory - Microbiology an d Antimicrobial susceptibilityOrdered By: Jenaro Lynch on 09-21-2023 Microscopic observation Gram stain Nom (Unsp spec) [facility] Activated partial thrombopla stin time (aPTT) in platelet poor plasma by coagulation aon 09-18-2023 aPTT Coag (PPP) [Time] 32.0 s 22.3-36.2 [facility] Basophils Auto (Bld) [#/Vol] on 09-18-2023 Basophils (Bld) [#/Vol] 0.1 10 3/uL 0.0-0.1 [facility] Basophils/100 WBC Auto (Bld) on 09-18-2023 Basophils/100 WBC (Bld) 0.9 % 0.2-2.0 [facility] Eosinophils/100 WBC Auto (Bl d)on 09-18-2023 Eosinophils/100 WBC (Bld) 2.3 % 0.9-7.0 [facility] Erythrocyte distribution wid th Auto (RBC) [Ratio]on 09-18-2023 Erythrocyte distribution width (RBC) [Ratio] 18.8 % High 11.0-15.0 [facility] Estimated glomerular filtrat ion rate (GFR) non- Americanon 09-18-2023 GFR/1.73 sq M.predicted among non-blacks MDRD (S/P/Bld) [Vol rate/Area] 27 mL/min/{1.73_m2} Low >=60 [facility] Hematocrit Auto (Bld) [Volum e fraction]on 09-18-2023 Hematocrit (Bld) [Volume fraction] 35.0 % Low 42.0-54.0 [facility] Hemoglobin [Mass/volume] in Bloodon 09-18-2023 Hemoglobin (Bld) [Mass/Vol] 10.3 g/dL Low 14.0-18.0 [facility] INR in Platelet poor plasma by Coagulation assayon 09-18-2023 INR Coag (PPP) [Relative time] 1.08 {INR} [facility] Comment on above: DESIRED INR:2.0-3.0 CONDITIONS NOT LISTED BELOW2.5-3.5 FOR PROSTHETIC HEART VALVE REPLACEMENT2.5-3.5 RECURRENT THROMBOSIS Laboratory - Chemistry and C hemistry - challengeon 09-18-2023 Calcium [Mass/Vol] 8.9 mg/dL 8.5-10.1 [facility] Chloride [Moles/Vol] 97 mmol/L Low 98-107 [facility] CO2 [Moles/Vol] 28.2 mmol/L 21.0-32.0 [facility] Creatinine [Mass/Vol] 2.47 mg/dL High 0.70-1.30 [facility] GFR/1.73 sq M.predicted MDRD (S/P/Bld) [Vol rate/Area] 33 mL/min/{1.73_m2} Low >=60 [facility] Glucose [Mass/Vol] 200 mg/dL High 74-106 [facility] Potassium [Moles/Vol] 3.7 mmol/L 3.5-5.1 [facility] Sodium [Moles/Vol] 137 mmol/L 136-145 [facility] Urea nitrogen [Mass/Vol] 23.0 mg/dL High 7.0-18.0 [facility] Urea nitrogen/Creatinine [Mass ratio] 9.3 mg/mg [facility] Laboratory - Hematology and Cell countson 09-18-2023 Immature granulocytes/100 WBC (Bld) 0.6 % High 0.0-0.5 [facility] Leukocytes [#/volume] correc jorge for nucleated erythrocytes in Blood by Automated counon 09-18-2023 WBC corrected for nucl RBC Auto (Bld) [#/Vol] 12.4 10 3/uL High 4.0-11.0 [facility] Lymphocytes Auto (Bld) [#/Vo l]on 09-18-2023 Lymphocytes (Bld) [#/Vol] 2.4 10 3/uL 1.2-3.8 [facility] Lymphocytes/100 WBC Auto (Bl d)on 09-18-2023 Lymphocytes/100 WBC (Bld) 19.6 % Low 20.5-60.0 [facility] MCH Auto (RBC) [Entitic mass ]on 09-18-2023 MCH (RBC) [Entitic mass] 22.2 pg Low 25.9-34.0 [facility] MCHC Auto (RBC) [Mass/Vol]on 09-18-2023 MCHC (RBC) [Mass/Vol] 29.4 g/dL Low 29.9-35.2 [facility] MCV Auto (RBC) [Entitic vol] on 09-18-2023 MCV (RBC) [Entitic vol] 75.3 fL Low 80.0-94.0 [facility] Monocytes Auto (Bld) [#/Vol] on 09-18-2023 Monocytes (Bld) [#/Vol] 1.2 10 3/uL High 0.3-0.8 [facility] Monocytes/100 WBC Auto (Bld) on 09-18-2023 Monocytes/100 WBC (Bld) 10.0 % 1.7-12.0 [facility] Neutrophils Auto (Bld) [#/Vo l]on 09-18-2023 Neutrophils (Bld) [#/Vol] 8.2 10 3/uL High 1.4-6.5 [facility] Neutrophils/100 WBC Auto (Bl d)on 09-18-2023 Neutrophils/100 WBC (Bld) 66.6 % 43.0-75.0 [facility] No Panel Informationon 09-17 Eosinophils # (Auto) 0.3 10 3/uL 0.0-0.7 [facility] Immature Granulocyte # (Auto) 0.07 10 3/uL High 0.00-0.03 [facility] Platelet mean volume Auto (B ld) [Entitic vol]on 09-18-2023 Platelet mean volume (Bld) [Entitic vol] 10.9 fL 9.5-13.5 [facility] Platelets Auto (Bld) [#/Vol] on 09-18-2023 Platelets (Bld) [#/Vol] 300 10 3/uL 150-450 [facility] Prothrombin time (PT)on 09-03 PT Coag (PPP) [Time] 11.4 s 9.0-11.6 [facility] RBC Auto (Bld) [#/Vol]on RBC (Bld) [#/Vol] 4.65 10 6/uL Low 4.70-6.10 [facility] Serum or plasma anion gap de terminationon 09-18-2023 Anion gap [Moles/Vol] 15.5 mmol/L [facility] - Microbiology an d Antimicrobial susceptibilityOrdered By: Jenaro Lynch on 08-10-2023 Microscopic observation Gram stain Nom (Unsp spec) [facility] No Panel Informationon 08-09 Fungal Smear Result [facility] Miscellaneous Test Comment See comment [facility] Comment on above: Specimen Source: JONO TRT - Foot Right - Foot Rt - [id number] No Panel InformationOrdered By: Jenaro Lynch on 08-10-2023 Acid Fast Culture [facility] Acid Fast Smear [facility] AFB Specimen Processing [facility] Tissue Culture [facility] Basophils Auto (Bld) [#/Vol] on 08-07-2023 Basophils (Bld) [#/Vol] 0.1 10 3/uL 0.0-0.1 [facility] Basophils/100 WBC Auto (Bld) on 08-07-2023 Basophils/100 WBC (Bld) 0.7 % 0.2-2.0 [facility] Eosinophils/100 WBC Auto (Bl d)on 08-07-2023 Eosinophils/100 WBC (Bld) 3.9 % 0.9-7.0 [facility] Erythrocyte distribution wid th Auto (RBC) [Ratio]on 08-07-2023 Erythrocyte distribution width (RBC) [Ratio] 16.9 % 11.0-15.0 [facility] Estimated glomerular filtrat ion rate (GFR) non- Americanon 08-07-2023 GFR/1.73 sq M.predicted among non-blacks MDRD (S/P/Bld) [Vol rate/Area] 42 mL/min/{1.73_m2} >=60 [facility] Globulin Calc (S) [Mass/Vol] on 08-07-2023 Globulin (S) [Mass/Vol] 4.0 g/dL [facility] Hematocrit Auto (Bld) [Volum e fraction]on 08-07-2023 Hematocrit (Bld) [Volume fraction] 31.5 % 42.0-54.0 [facility] Hemoglobin [Mass/volume] in Bloodon 08-07-2023 Hemoglobin (Bld) [Mass/Vol] 9.4 g/dL 14.0-18.0 [facility] Laboratory - Chemistry and C hemistry - challengeon 08-07-2023 Albumin [Mass/Vol] 2.1 g/dL 3.4-5.0 [facility] ALP [Catalytic activity/Vol] 144 U/L 46-116 [facility] ALT [Catalytic activity/Vol] 21 U/L 16-63 [facility] AST [Catalytic activity/Vol] 25 U/L 15-37 [facility] Bilirubin [Mass/Vol] 0.4 mg/dL 0.2-1.0 [facility] Calcium [Mass/Vol] 8.1 mg/dL 8.5-10.1 [facility] Chloride [Moles/Vol] 102 mmol/L 98-107 [facility] CO2 [Moles/Vol] 24.7 mmol/L 21.0-32.0 [facility] Creatinine [Mass/Vol] 1.70 mg/dL 0.70-1.30 [facility] GFR/1.73 sq M.predicted MDRD (S/P/Bld) [Vol rate/Area] 50 mL/min/{1.73_m2} >=60 [facility] Glucose [Mass/Vol] 188 mg/dL 74-106 [facility] Potassium [Moles/Vol] 4.6 mmol/L 3.5-5.1 [facility] Protein [Mass/Vol] 6.1 g/dL 6.4-8.2 [facility] Sodium [Moles/Vol] 135 mmol/L 136-145 [facility] Urea nitrogen [Mass/Vol] 33.0 mg/dL 7.0-18.0 [facility] Urea nitrogen/Creatinine [Mass ratio] 19.4 mg/mg [facility] Laboratory - Hematology and Cell countson 08-07-2023 Immature granulocytes/100 WBC (Bld) 0.7 % 0.0-0.5 [facility] Leukocytes [#/volume] correc jorge for nucleated erythrocytes in Blood by Automated counon 08-07-2023 WBC corrected for nucl RBC Auto (Bld) [#/Vol] 12.0 10 3/uL 4.0-11.0 [facility] Lymphocytes Auto (Bld) [#/Vo l]on 08-07-2023 Lymphocytes (Bld) [#/Vol] 1.5 10 3/uL 1.2-3.8 [facility] Lymphocytes/100 WBC Auto (Bl d)on 08-07-2023 Lymphocytes/100 WBC (Bld) 12.4 % 20.5-60.0 [facility] MCH Auto (RBC) [Entitic mass ]on 08-07-2023 MCH (RBC) [Entitic mass] 22.5 pg 25.9-34.0 [facility] MCHC Auto (RBC) [Mass/Vol]on 08-07-2023 MCHC (RBC) [Mass/Vol] 29.8 g/dL 29.9-35.2 [facility] MCV Auto (RBC) [Entitic vol] on 08-07-2023 MCV (RBC) [Entitic vol] 75.4 fL 80.0-94.0 [facility] Monocytes Auto (Bld) [#/Vol] on 08-07-2023 Monocytes (Bld) [#/Vol] 1.2 10 3/uL 0.3-0.8 [facility] Monocytes/100 WBC Auto (Bld) on 08-07-2023 Monocytes/100 WBC (Bld) 10.1 % 1.7-12.0 [facility] Neutrophils Auto (Bld) [#/Vo l]on 08-07-2023 Neutrophils (Bld) [#/Vol] 8.7 10 3/uL 1.4-6.5 [facility] Neutrophils/100 WBC Auto (Bl d)on 08-07-2023 Neutrophils/100 WBC (Bld) 72.2 % 43.0-75.0 [facility] No Panel Informationon 08-06 Eosinophils # (Auto) 0.5 10 3/uL 0.0-0.7 [facility] Immature Granulocyte # (Auto) 0.09 10 3/uL 0.00-0.03 [facility] Platelet mean volume Auto (B ld) [Entitic vol]on 08-07-2023 Platelet mean volume (Bld) [Entitic vol] 11.7 fL 9.5-13.5 [facility] Platelets Auto (Bld) [#/Vol] on 08-07-2023 Platelets (Bld) [#/Vol] 222 10 3/uL 150-450 [facility] RBC Auto (Bld) [#/Vol]on RBC (Bld) [#/Vol] 4.18 10 6/uL 4.70-6.10 [facility] Serum or plasma albumin/glob ulin mass ratioon 08-07-2023 Albumin/Globulin [Mass ratio] 0.5 {ratio} [facility] Serum or plasma anion gap de terminationon 08-07-2023 Anion gap [Moles/Vol] 12.9 mmol/L [facility] Basophils Auto (Bld) [#/Vol] on 08-06-2023 Basophils (Bld) [#/Vol] 0.1 10 3/uL 0.0-0.1 [facility] Basophils/100 WBC Auto (Bld) on 08-06-2023 Basophils/100 WBC (Bld) 0.7 % 0.2-2.0 [facility] Eosinophils/100 WBC Auto (Bl d)on 08-06-2023 Eosinophils/100 WBC (Bld) 3.3 % 0.9-7.0 [facility] Erythrocyte distribution wid th Auto (RBC) [Ratio]on 08-06-2023 Erythrocyte distribution width (RBC) [Ratio] 17.0 % 11.0-15.0 [facility] Estimated glomerular filtrat ion rate (GFR) non- Americanon 08-06-2023 GFR/1.73 sq M.predicted among non-blacks MDRD (S/P/Bld) [Vol rate/Area] 36 mL/min/{1.73_m2} >=60 [facility] Globulin Calc (S) [Mass/Vol] on 08-06-2023 Globulin (S) [Mass/Vol] 4.0 g/dL [facility] Hematocrit Auto (Bld) [Volum e fraction]on 08-06-2023 Hematocrit (Bld) [Volume fraction] 30.1 % 42.0-54.0 [facility] Hemoglobin [Mass/volume] in Bloodon 08-06-2023 Hemoglobin (Bld) [Mass/Vol] 8.8 g/dL 14.0-18.0 [facility] Laboratory - Chemistry and C hemistry - challengeon 08-06-2023 Albumin [Mass/Vol] 2.0 g/dL 3.4-5.0 [facility] ALP [Catalytic activity/Vol] 127 U/L 46-116 [facility] ALT [Catalytic activity/Vol] 14 U/L 16-63 [facility] AST [Catalytic activity/Vol] 16 U/L 15-37 [facility] Bilirubin [Mass/Vol] 0.4 mg/dL 0.2-1.0 [facility] Calcium [Mass/Vol] 7.9 mg/dL 8.5-10.1 [facility] Chloride [Moles/Vol] 99 mmol/L 98-107 [facility] CO2 [Moles/Vol] 25.0 mmol/L 21.0-32.0 [facility] Creatinine [Mass/Vol] 1.95 mg/dL 0.70-1.30 [facility] GFR/1.73 sq M.predicted MDRD (S/P/Bld) [Vol rate/Area] 43 mL/min/{1.73_m2} >=60 [facility] Glucose [Mass/Vol] 297 mg/dL 74-106 [facility] Potassium [Moles/Vol] 4.4 mmol/L 3.5-5.1 [facility] Protein [Mass/Vol] 6.0 g/dL 6.4-8.2 [facility] Sodium [Moles/Vol] 133 mmol/L 136-145 [facility] Urea nitrogen [Mass/Vol] 28.0 mg/dL 7.0-18.0 [facility] Urea nitrogen/Creatinine [Mass ratio] 14.4 mg/mg [facility] Laboratory - Hematology and Cell countson 08-06-2023 Immature granulocytes/100 WBC (Bld) 0.4 % 0.0-0.5 [facility] Leukocytes [#/volume] correc jorge for nucleated erythrocytes in Blood by Automated counon 08-06-2023 WBC corrected for nucl RBC Auto (Bld) [#/Vol] 10.1 10 3/uL 4.0-11.0 [facility] Lymphocytes Auto (Bld) [#/Vo l]on 08-06-2023 Lymphocytes (Bld) [#/Vol] 1.5 10 3/uL 1.2-3.8 [facility] Lymphocytes/100 WBC Auto (Bl d)on 08-06-2023 Lymphocytes/100 WBC (Bld) 14.4 % 20.5-60.0 [facility] MCH Auto (RBC) [Entitic mass ]on 08-06-2023 MCH (RBC) [Entitic mass] 22.5 pg 25.9-34.0 [facility] MCHC Auto (RBC) [Mass/Vol]on 08-06-2023 MCHC (RBC) [Mass/Vol] 29.2 g/dL 29.9-35.2 [facility] MCV Auto (RBC) [Entitic vol] on 08-06-2023 MCV (RBC) [Entitic vol] 77.0 fL 80.0-94.0 [facility] Monocytes Auto (Bld) [#/Vol] on 08-06-2023 Monocytes (Bld) [#/Vol] 1.1 10 3/uL 0.3-0.8 [facility] Monocytes/100 WBC Auto (Bld) on 08-06-2023 Monocytes/100 WBC (Bld) 10.4 % 1.7-12.0 [facility] Neutrophils Auto (Bld) [#/Vo l]on 08-06-2023 Neutrophils (Bld) [#/Vol] 7.2 10 3/uL 1.4-6.5 [facility] Neutrophils/100 WBC Auto (Bl d)on 08-06-2023 Neutrophils/100 WBC (Bld) 70.8 % 43.0-75.0 [facility] No Panel Informationon 08-05 Vancomycin Level Trough 13.6 ug/mL 5.0-20.0 [facility] Eosinophils # (Auto) 0.3 10 3/uL 0.0-0.7 [facility] Immature Granulocyte # (Auto) 0.04 10 3/uL 0.00-0.03 [facility] Platelet mean volume Auto (B ld) [Entitic vol]on 08-06-2023 Platelet mean volume (Bld) [Entitic vol] 12.2 fL 9.5-13.5 [facility] Platelets Auto (Bld) [#/Vol] on 08-06-2023 Platelets (Bld) [#/Vol] 190 10 3/uL 150-450 [facility] RBC Auto (Bld) [#/Vol]on RBC (Bld) [#/Vol] 3.91 10 6/uL 4.70-6.10 [facility] Serum or plasma albumin/glob ulin mass ratioon 08-06-2023 Albumin/Globulin [Mass ratio] 0.5 {ratio} [facility] Serum or plasma anion gap de terminationon 08-06-2023 Anion gap [Moles/Vol] 13.4 mmol/L [facility] Automated epithelial cells c ount in urine sediment (number/area)on 08-05-2023 Epithelial cells Auto (Urine sed) [#/Area] RARE #/LPF NONE/RARE [facility] Automated leukocytes count i n urine sediment (number/area)on 08-05-2023 WBC Auto (Urine sed) [#/Area] NONE SEEN #/HPF 0-2 [facility] Automated urine specific gra vity by refractometryon 08-05-2023 Specific gravity Refractometry automated (U) [Rel density] <=1.005 1.005-1.02 5 [facility] Basophils Auto (Bld) [#/Vol] on 08-05-2023 Basophils (Bld) [#/Vol] 0.1 10 3/uL 0.0-0.1 [facility] Basophils/100 WBC Auto (Bld) on 08-05-2023 Basophils/100 WBC (Bld) 0.7 % 0.2-2.0 [facility] Bilirubin Auto test strip (U ) [Mass/Vol]on 08-05-2023 Bilirubin (U) [Mass/Vol] Negative NEGATIVE [facility] Casts typing in urine sedime nt by light microscopyon 08-05-2023 Casts LM Nom (Urine sed) NONE SEEN #/LPF NONE SEEN [facility] Color Auto (U)on 08-05-2023 Color (U) LT. YELLOW YELLOW [facility] Eosinophils/100 WBC Auto (Bl d)on 08-05-2023 Eosinophils/100 WBC (Bld) 2.5 % 0.9-7.0 [facility] Erythrocyte distribution wid th Auto (RBC) [Ratio]on 08-05-2023 Erythrocyte distribution width (RBC) [Ratio] 16.8 % 11.0-15.0 [facility] Estimated glomerular filtrat ion rate (GFR) non- Americanon 08-05-2023 GFR/1.73 sq M.predicted among non-blacks MDRD (S/P/Bld) [Vol rate/Area] 42 mL/min/{1.73_m2} >=60 [facility] Globulin Calc (S) [Mass/Vol] on 08-05-2023 Globulin (S) [Mass/Vol] 4.1 g/dL [facility] Glucose mean value [Mass/vol ume] in Blood Estimated from glycated hemoglobinon 08-05-2023 Average glucose Estimated from glycated hemoglobin (Bld) [Mass/Vol] 214 mg/dL [facility] Hematocrit Auto (Bld) [Volum e fraction]on 08-05-2023 Hematocrit (Bld) [Volume fraction] 31.8 % 42.0-54.0 [facility] Hemoglobin [Mass/volume] in Bloodon 08-05-2023 Hemoglobin (Bld) [Mass/Vol] 9.4 g/dL 14.0-18.0 [facility] Ketones Auto test strip (U) [Mass/Vol]on 08-05-2023 Ketones (U) [Mass/Vol] Negative NEGATIVE [facility] - Chemistry and C hemistry - challengeon 08-05-2023 Albumin [Mass/Vol] 2.3 g/dL 3.4-5.0 [facility] ALP [Catalytic activity/Vol] 111 U/L 46-116 [facility] ALT [Catalytic activity/Vol] 11 U/L 16-63 [facility] AST [Catalytic activity/Vol] 11 U/L 15-37 [facility] Bilirubin [Mass/Vol] 0.5 mg/dL 0.2-1.0 [facility] Calcium [Mass/Vol] 8.1 mg/dL 8.5-10.1 [facility] Chloride [Moles/Vol] 101 mmol/L 98-107 [facility] CO2 [Moles/Vol] 25.6 mmol/L 21.0-32.0 [facility] Creatinine [Mass/Vol] 1.68 mg/dL 0.70-1.30 [facility] GFR/1.73 sq M.predicted MDRD (S/P/Bld) [Vol rate/Area] 51 mL/min/{1.73_m2} >=60 [facility] Glucose [Mass/Vol] 111 mg/dL 74-106 [facility] Potassium [Moles/Vol] 3.7 mmol/L 3.5-5.1 [facility] Protein [Mass/Vol] 6.4 g/dL 6.4-8.2 [facility] Sodium [Moles/Vol] 138 mmol/L 136-145 [facility] Urea nitrogen [Mass/Vol] 17.0 mg/dL 7.0-18.0 [facility] Urea nitrogen/Creatinine [Mass ratio] 10.1 mg/mg [facility] Laboratory - Hematology and Cell countson 08-05-2023 HbA1c (Bld) [Mass fraction] 9.1 % 4.5-6.2 [facility] Comment on above: ADA RECOMMENDED LIMI T 4.0 - 6.0ADA THERAPEUTIC TARGET < 7.0ACTION SUGGESTED> 7.0 Immature granulocytes/100 WBC (Bld) 0.4 % 0.0-0.5 [facility] Laboratory - Microbiology an d Antimicrobial susceptibilityOrdered By: Jenaro Lynch on 08-05-2023 Microscopic observation Gram stain Nom (Unsp spec) [facility] Leukocytes [#/volume] correc jorge for nucleated erythrocytes in Blood by Automated counon 08-05-2023 WBC corrected for nucl RBC Auto (Bld) [#/Vol] 12.3 10 3/uL 4.0-11.0 [facility] Lymphocytes Auto (Bld) [#/Vo l]on 08-05-2023 Lymphocytes (Bld) [#/Vol] 1.5 10 3/uL 1.2-3.8 [facility] Lymphocytes/100 WBC Auto (Bl d)on 08-05-2023 Lymphocytes/100 WBC (Bld) 11.8 % 20.5-60.0 [facility] MCH Auto (RBC) [Entitic mass ]on 08-05-2023 MCH (RBC) [Entitic mass] 22.4 pg 25.9-34.0 [facility] MCHC Auto (RBC) [Mass/Vol]on 08-05-2023 MCHC (RBC) [Mass/Vol] 29.6 g/dL 29.9-35.2 [facility] MCV Auto (RBC) [Entitic vol] on 08-05-2023 MCV (RBC) [Entitic vol] 75.9 fL 80.0-94.0 [facility] Monocytes Auto (Bld) [#/Vol] on 08-05-2023 Monocytes (Bld) [#/Vol] 1.3 10 3/uL 0.3-0.8 [facility] Monocytes/100 WBC Auto (Bld) on 08-05-2023 Monocytes/100 WBC (Bld) 10.7 % 1.7-12.0 [facility] Mucus LM Ql (Urine sed)on Mucus Ql (Urine sed) NONE SEEN NONE SEEN [facility] Neutrophils Auto (Bld) [#/Vo l]on 08-05-2023 Neutrophils (Bld) [#/Vol] 9.1 10 3/uL 1.4-6.5 [facility] Neutrophils/100 WBC Auto (Bl d)on 08-05-2023 Neutrophils/100 WBC (Bld) 73.9 % 43.0-75.0 [facility] No Panel Informationon 08-04 Eosinophils # (Auto) 0.3 10 3/uL 0.0-0.7 [facility] Immature Granulocyte # (Auto) 0.05 10 3/uL 0.00-0.03 [facility] Platelet mean volume Auto (B ld) [Entitic vol]on 08-05-2023 Platelet mean volume (Bld) [Entitic vol] 11.2 fL 9.5-13.5 [facility] Platelets Auto (Bld) [#/Vol] on 08-05-2023 Platelets (Bld) [#/Vol] 184 10 3/uL 150-450 [facility] Protein Auto test strip (U) [Mass/Vol]on 08-05-2023 Protein (U) [Mass/Vol] Negative NEG/TRACE [facility] RBC Auto (Bld) [#/Vol]on RBC (Bld) [#/Vol] 4.19 10 6/uL 4.70-6.10 [facility] Serum or plasma albumin/glob ulin mass ratioon 08-05-2023 Albumin/Globulin [Mass ratio] 0.6 {ratio} [facility] Serum or plasma anion gap de terminationon 08-05-2023 Anion gap [Moles/Vol] 15.1 mmol/L [facility] Specific gravity Auto test s trip (U) [Rel density]on 08-05-2023 Specific gravity (U) [Rel density] CLEAR CLEAR [facility] Urine bacteria detection by automated methodon 08-05-2023 Bacteria Auto Ql (U) TRACE #/HPF NONE SEEN [facility] Urine glucose measurement by test strip (mass/volume)on 08-05-2023 Glucose Test strip (U) [Mass/Vol] >=1000 mg/dL NEGATIVE [facility] Urine hemoglobin detection b y automated test stripon 08-05-2023 Hemoglobin Auto test strip Ql (U) Negative NEGATIVE [facility] Urine nitrite detection by a utomated test stripon 08-05-2023 Nitrite Auto test strip Ql (U) Negative NEGATIVE [facility] Urine sediment crystal ident ification by light microscopyon 08-05-2023 Crystals LM Nom (Urine sed) None Seen #/HPF None Seen [facility] Urine sediment leukocyte cou nt by microscopy (number/high power field)on 08-05-2023 WBC LM.HPF (Urine sed) [#/Area] NONE SEEN #/HPF NONE SEEN [facility] Urobilinogen Auto test strip (U) [Mass/Vol]on 08-05-2023 Urobilinogen Qn (U) 0.2 {Brendan'U}/dL 0.2-1.0 [facility] pH Auto test strip (U)on pH (U) 6.0 [pH] 5.0-9.0 [facility] Basophils Auto (Bld) [#/Vol] on 08-04-2023 Basophils (Bld) [#/Vol] 0.1 10 3/uL 0.0-0.1 [facility] Basophils/100 WBC Auto (Bld) on 08-04-2023 Basophils/100 WBC (Bld) 0.8 % 0.2-2.0 [facility] Eosinophils/100 WBC Auto (Bl d)on 08-04-2023 Eosinophils/100 WBC (Bld) 2.8 % 0.9-7.0 [facility] Erythrocyte distribution wid th Auto (RBC) [Ratio]on 08-04-2023 Erythrocyte distribution width (RBC) [Ratio] 16.9 % 11.0-15.0 [facility] Estimated glomerular filtrat ion rate (GFR) non- Americanon 08-04-2023 GFR/1.73 sq M.predicted among non-blacks MDRD (S/P/Bld) [Vol rate/Area] 33 mL/min/{1.73_m2} >=60 [facility] Globulin Calc (S) [Mass/Vol] on 08-04-2023 Globulin (S) [Mass/Vol] 4.4 g/dL [facility] Hematocrit Auto (Bld) [Volum e fraction]on 08-04-2023 Hematocrit (Bld) [Volume fraction] 32.6 % 42.0-54.0 [facility] Hemoglobin [Mass/volume] in Bloodon 08-04-2023 Hemoglobin (Bld) [Mass/Vol] 9.6 g/dL 14.0-18.0 [facility] INR in Platelet poor plasma by Coagulation assayon 08-04-2023 INR Coag (PPP) [Relative time] 1.05 {INR} [facility] Comment on above: DESIRED INR:2.0-3.0 CONDITIONS NOT LISTED BELOW2.5-3.5 FOR PROSTHETIC HEART VALVE REPLACEMENT2.5-3.5 RECURRENT THROMBOSIS Laboratory - Chemistry and C hemistry - challengeon 08-04-2023 Albumin [Mass/Vol] 2.4 g/dL 3.4-5.0 [facility] ALP [Catalytic activity/Vol] 109 U/L 46-116 [facility] ALT [Catalytic activity/Vol] 9 U/L 16-63 [facility] AST [Catalytic activity/Vol] U/L 15-37 [facility] Bilirubin [Mass/Vol] 0.4 mg/dL 0.2-1.0 [facility] Calcium [Mass/Vol] 8.0 mg/dL 8.5-10.1 [facility] Chloride [Moles/Vol] 96 mmol/L 98-107 [facility] CO2 [Moles/Vol] 29.2 mmol/L 21.0-32.0 [facility] Creatinine [Mass/Vol] 2.06 mg/dL 0.70-1.30 [facility] GFR/1.73 sq M.predicted MDRD (S/P/Bld) [Vol rate/Area] 40 mL/min/{1.73_m2} >=60 [facility] Glucose [Mass/Vol] 329 mg/dL 74-106 [facility] Potassium [Moles/Vol] 3.5 mmol/L 3.5-5.1 [facility] Protein [Mass/Vol] 6.8 g/dL 6.4-8.2 [facility] Sodium [Moles/Vol] 132 mmol/L 136-145 [facility] Urea nitrogen [Mass/Vol] 20.0 mg/dL 7.0-18.0 [facility] Urea nitrogen/Creatinine [Mass ratio] 9.7 mg/mg [facility] Laboratory - Hematology and Cell countson 08-04-2023 ESR (Bld) [Velocity] 89 mm/h <=20 [facility] Immature granulocytes/100 WBC (Bld) 0.3 % 0.0-0.5 [facility] Laboratory - Microbiology an d Antimicrobial susceptibilityOrdered By: Jenaro Lynch on 08-04-2023 Microscopic observation Gram stain Nom (Unsp spec) [facility] Leukocytes [#/volume] correc jorge for nucleated erythrocytes in Blood by Automated counon 08-04-2023 WBC corrected for nucl RBC Auto (Bld) [#/Vol] 11.6 10 3/uL 4.0-11.0 [facility] Lymphocytes Auto (Bld) [#/Vo l]on 08-04-2023 Lymphocytes (Bld) [#/Vol] 1.7 10 3/uL 1.2-3.8 [facility] Lymphocytes/100 WBC Auto (Bl d)on 08-04-2023 Lymphocytes/100 WBC (Bld) 14.9 % 20.5-60.0 [facility] MCH Auto (RBC) [Entitic mass ]on 08-04-2023 MCH (RBC) [Entitic mass] 22.3 pg 25.9-34.0 [facility] MCHC Auto (RBC) [Mass/Vol]on 08-04-2023 MCHC (RBC) [Mass/Vol] 29.4 g/dL 29.9-35.2 [facility] MCV Auto (RBC) [Entitic vol] on 08-04-2023 MCV (RBC) [Entitic vol] 75.8 fL 80.0-94.0 [facility] Monocytes Auto (Bld) [#/Vol] on 08-04-2023 Monocytes (Bld) [#/Vol] 1.2 10 3/uL 0.3-0.8 [facility] Monocytes/100 WBC Auto (Bld) on 08-04-2023 Monocytes/100 WBC (Bld) 10.4 % 1.7-12.0 [facility] Neutrophils Auto (Bld) [#/Vo l]on 08-04-2023 Neutrophils (Bld) [#/Vol] 8.2 10 3/uL 1.4-6.5 [facility] Neutrophils/100 WBC Auto (Bl d)on 08-04-2023 Neutrophils/100 WBC (Bld) 70.8 % 43.0-75.0 [facility] No Panel InformationOrdered By: Jenaro Lynch on 08-04-2023 Blood Culture 2 [facility] Blood Culture 1 [facility] Wound Culture [facility] No Panel Informationon 08-03 Aerobic & Anaerobic Susceptibility [facility] Miscellaneous Test Comment See comment [facility] Comment on above: Specimen Source: JONO T - Foot - Foot - 603.950 C-Reactive Protein, Quantitative 11.62 mg/dL <=0.50 [facility] Eosinophils # (Auto) 0.3 10 3/uL 0.0-0.7 [facility] Immature Granulocyte # (Auto) 0.04 10 3/uL 0.00-0.03 [facility] Platelet mean volume Auto (B ld) [Entitic vol]on 08-04-2023 Platelet mean volume (Bld) [Entitic vol] 11.5 fL 9.5-13.5 [facility] Platelets Auto (Bld) [#/Vol] on 08-04-2023 Platelets (Bld) [#/Vol] 206 10 3/uL 150-450 [facility] Prothrombin time (PT)on PT Coag (PPP) [Time] 11.1 s 9.0-11.6 [facility] RBC Auto (Bld) [#/Vol]on RBC (Bld) [#/Vol] 4.30 10 6/uL 4.70-6.10 [facility] Serum or plasma albumin/glob ulin mass ratioon 08-04-2023 Albumin/Globulin [Mass ratio] 0.5 {ratio} [facility] Serum or plasma anion gap de terminationon 08-04-2023 Anion gap [Moles/Vol] 10.3 [facility] Serum procalcitonin measurem enton 08-04-2023 Procalcitonin [Mass/Vol] 0.10 ng/mL 0.00-0.50 [facility] Basophils Auto (Bld) [#/Vol] on 08-03-2023 Basophils (Bld) [#/Vol] 0.1 10 3/uL 0.0-0.1 [facility] Basophils/100 WBC Auto (Bld) on 08-03-2023 Basophils/100 WBC (Bld) 0.7 % 0.2-2.0 [facility] Eosinophils/100 WBC Auto (Bl d)on 08-03-2023 Eosinophils/100 WBC (Bld) 1.8 % 0.9-7.0 [facility] Erythrocyte distribution wid th Auto (RBC) [Ratio]on 08-03-2023 Erythrocyte distribution width (RBC) [Ratio] 17.0 % 11.0-15.0 [facility] Estimated glomerular filtrat ion rate (GFR) non- Americanon 08-03-2023 GFR/1.73 sq M.predicted among non-blacks MDRD (S/P/Bld) [Vol rate/Area] 27 mL/min/{1.73_m2} >=60 [facility] Globulin Calc (S) [Mass/Vol] on 08-03-2023 Globulin (S) [Mass/Vol] 5.0 g/dL [facility] Hematocrit Auto (Bld) [Volum e fraction]on 08-03-2023 Hematocrit (Bld) [Volume fraction] 38.9 % 42.0-54.0 [facility] Hemoglobin [Mass/volume] in Bloodon 08-03-2023 Hemoglobin (Bld) [Mass/Vol] 11.8 g/dL 14.0-18.0 [facility] Laboratory - Chemistry and C hemistry - challengeon 08-03-2023 Lactate [Moles/Vol] 1.6 mmol/L 0.4-2.0 [facility] Albumin [Mass/Vol] 3.3 g/dL 3.4-5.0 [facility] ALP [Catalytic activity/Vol] 134 U/L 46-116 [facility] ALT [Catalytic activity/Vol] 13 U/L 16-63 [facility] AST [Catalytic activity/Vol] U/L 15-37 [facility] Bilirubin [Mass/Vol] 0.6 mg/dL 0.2-1.0 [facility] Calcium [Mass/Vol] 9.3 mg/dL 8.5-10.1 [facility] Chloride [Moles/Vol] 92 mmol/L 98-107 [facility] CO2 [Moles/Vol] 31.0 mmol/L 21.0-32.0 [facility] Creatinine [Mass/Vol] 2.45 mg/dL 0.70-1.30 [facility] GFR/1.73 sq M.predicted MDRD (S/P/Bld) [Vol rate/Area] 33 mL/min/{1.73_m2} >=60 [facility] Glucose [Mass/Vol] 310 mg/dL 74-106 [facility] Potassium [Moles/Vol] 3.7 mmol/L 3.5-5.1 [facility] Protein [Mass/Vol] 8.3 g/dL 6.4-8.2 [facility] Sodium [Moles/Vol] 133 mmol/L 136-145 [facility] Urea nitrogen [Mass/Vol] 23.0 mg/dL 7.0-18.0 [facility] Urea nitrogen/Creatinine [Mass ratio] 9.4 mg/mg [facility] Laboratory - Hematology and Cell countson 08-03-2023 ESR (Bld) [Velocity] 118 mm/h <=20 [facility] Immature granulocytes/100 WBC (Bld) 0.4 % 0.0-0.5 [facility] Leukocytes [#/volume] correc jorge for nucleated erythrocytes in Blood by Automated counon 08-03-2023 WBC corrected for nucl RBC Auto (Bld) [#/Vol] 14.6 10 3/uL 4.0-11.0 [facility] Lymphocytes Auto (Bld) [#/Vo l]on 08-03-2023 Lymphocytes (Bld) [#/Vol] 2.1 10 3/uL 1.2-3.8 [facility] Lymphocytes/100 WBC Auto (Bl d)on 08-03-2023 Lymphocytes/100 WBC (Bld) 14.3 % 20.5-60.0 [facility] MCH Auto (RBC) [Entitic mass ]on 08-03-2023 MCH (RBC) [Entitic mass] 22.6 pg 25.9-34.0 [facility] MCHC Auto (RBC) [Mass/Vol]on 08-03-2023 MCHC (RBC) [Mass/Vol] 30.3 g/dL 29.9-35.2 [facility] MCV Auto (RBC) [Entitic vol] on 08-03-2023 MCV (RBC) [Entitic vol] 74.4 fL 80.0-94.0 [facility] Monocytes Auto (Bld) [#/Vol] on 08-03-2023 Monocytes (Bld) [#/Vol] 1.4 10 3/uL 0.3-0.8 [facility] Monocytes/100 WBC Auto (Bld) on 08-03-2023 Monocytes/100 WBC (Bld) 9.4 % 1.7-12.0 [facility] Neutrophils Auto (Bld) [#/Vo l]on 08-03-2023 Neutrophils (Bld) [#/Vol] 10.7 10 3/uL 1.4-6.5 [facility] Neutrophils/100 WBC Auto (Bl d)on 08-03-2023 Neutrophils/100 WBC (Bld) 73.4 % 43.0-75.0 [facility] No Panel Informationon C-Reactive Protein, Quantitative 14.63 mg/dL <=0.50 [facility] Eosinophils # (Auto) 0.3 10 3/uL 0.0-0.7 [facility] Immature Granulocyte # (Auto) 0.06 10 3/uL 0.00-0.03 [facility] Venous Blood Partial Pressure CO2 44.8 mm[Hg] 40.0-52.0 [facility] Venous Blood pH 7.432 7.330-7.43 0 [facility] No Panel InformationOrdered By: Jenaro Lynch on 08-03-2023 Blood Culture 2 [facility] Blood Culture 1 [facility] Platelet mean volume Auto (B ld) [Entitic vol]on 08-03-2023 Platelet mean volume (Bld) [Entitic vol] 11.4 fL 9.5-13.5 [facility] Platelets Auto (Bld) [#/Vol] on 08-03-2023 Platelets (Bld) [#/Vol] 252 10 3/uL 150-450 [facility] RBC Auto (Bld) [#/Vol]on RBC (Bld) [#/Vol] 5.23 10 6/uL 4.70-6.10 [facility] Serum or plasma albumin/glob ulin mass ratioon 08-03-2023 Albumin/Globulin [Mass ratio] 0.7 {ratio} [facility] Serum or plasma anion gap de terminationon 08-03-2023 Anion gap [Moles/Vol] 13.7 mmol/L [facility] US venous duplex LE BIon US venous duplex LE BI [facility] [place] [address] Ultrasound Report Signed Patient: Solomon Feldman SR MR#: [id number] : 1965 Acct:[id number] Age/Sex: 57 / M ADM Date: 07/12/23 [...] Howard Boss MD07/13/2023 11:56 AM Dictation Location: [place] [address] Tech: Nancy Pantoja Transcribed By: BOB 07/13/23 1156 Dictated By: Howard Boss MD 07/13/23 1156 Signed By: 07/13/23 1156 Normal [facility] US venous duplex UE LTon US venous duplex UE LT [facility] Main [place] [id number] Ultrasound Report Signed Patient: Solomon Feldman SR MR#: [id number] : 1965 Acct:[id number] Age/Sex: 57 / M ADM Date: 07/12/23 [...] Howard Boss MD07/13/2023 11:56 AM Dictation Location: [place] [address] Tech: Nancy Pantoja Transcribed By: BOB 07/13/23 1156 Dictated By: Howard Boss MD 07/13/23 1155 Signed By: 07/13/23 1156 Normal [facility] Activated partial thrombopla stin time (aPTT) in platelet poor plasma by coagulation aOrdered By: Nancy Wilson on 07-12-2023 aPTT Coag (PPP) [Time] 29.4 s 25.1-36.5 [facility] Comment on above: A hematocrit value g reater than 55% may lead to inaccurate results in coagulation testing. Patients having hematocrit values >55% require a special collection tube for coagulation studies. Please contact the laboratory at [phone] for redraw instructions. Alanine aminotransferase [En zymatic activity/volume] in Serum or PlasmaOrdered By: Nancy Wilson on 07-12-2023 ALT [Catalytic activity/Vol] 9 U/L Normal 7-52 [facility] Comment on above: Performed By: #### P TT, CBC, PT, BNP, CMP, HS TROP, CK #### [facility] [address] Albumin [Mass/volume] in Ser um or Plasma by Bromocresol green (BCG) dye binding methoOrdered By: Nancy Wilson on 07-12-2023 Albumin BCG dye [Mass/Vol] 3.9 g/dL 3.5-5.7 [facility] Alkaline phosphatase [Enzyma tic activity/volume] in Serum or PlasmaOrdered By: Nancy Wilson on 07-12-2023 ALP [Catalytic activity/Vol] 106 U/L High 34-104 [facility] Comment on above: Performed By: #### P TT, CBC, PT, BNP, CMP, HS TROP, CK #### [address] Aspartate aminotransferase [ Enzymatic activity/volume] in Serum or PlasmaOrdered By: Nancy Wilson on 07-12-2023 AST [Catalytic activity/Vol] 8 U/L Low 13-39 [facility] Comment on above: Performed By: #### P TT, CBC, PT, BNP, CMP, HS TROP, CK #### [address] Automated basophil %Ordered By: Nancy Wilson on 07-12-2023 Basophils/100 WBC (Bld) 1.1 % Normal . [facility] Comment on above: Performed By: #### P TT, CBC, PT, BNP, CMP, HS TROP, CK #### [address] Automated basophil countOrde red By: Nancy Wilson on 07-12-2023 Basophils (Bld) [#/Vol] 0.1 10*3/uL Normal 0.0-0.2 [facility] Comment on above: Result Comment: PERF ORMED BY: [place] [address] PATHOLOGIST [employer]ODITY SUPERVISOR CLIFFORD LOBATO M.D. Performed By: #### P TT, CBC, PT, BNP, CMP, HS TROP, CK #### [address] Automated blood monocyte cou ntOrdered By: Nancy Wilson on 02-07-2024 Monocytes (Bld) [#/Vol] 1.0 10*3/uL High 0.0-0.8 [facility] Comment on above: Performed By: #### P TT, CBC, PT, BNP, CMP, HS TROP, CK #### [address] Automated eosinophil %Ordere d By: Nancy Wilson on 07-12-2023 Eosinophils/100 WBC (Bld) 3.3 % Normal . [facility] Comment on above: Performed By: #### P TT, CBC, PT, BNP, CMP, HS TROP, CK #### [address] Automated eosinophil countOr dered By: Nancy Wilson on 07-12-2023 Eosinophils (Bld) [#/Vol] 0.3 10*3/uL Normal 0.0-0.45 [facility] Comment on above: Performed By: #### P TT, CBC, PT, BNP, CMP, HS TROP, CK #### [address] Automated monocyte %Ordered By: Nancy Wilson on 07-12-2023 Monocytes/100 WBC (Bld) 10.2 % Normal . [facility] Comment on above: Performed By: #### P TT, CBC, PT, BNP, CMP, HS TROP, CK #### [address] Automated neutrophil %Ordere d By: Nancy Wilson on 07-12-2023 Neutrophils/100 WBC (Bld) 65.4 % Normal . [facility] Comment on above: Performed By: #### P TT, CBC, PT, BNP, CMP, HS TROP, CK #### [address] BNP ser/plasOrdered By: Laith Wilson on 07-12-2023 Natriuretic peptide B (Bld) [Mass/Vol] 34.0 pg/mL Normal 5-100 [facility] Comment on above: Result Comment: PERF ORMED BY: [place] [address] PATHOLOGIST [employer]ODITY SUPERVISOR CLIFFORD LOBATO M.D. Performed By: #### P TT, CBC, PT, BNP, CMP, HS TROP, CK #### [facility] [address] Bilirubin.total [Mass/volume ] in Serum or PlasmaOrdered By: Nancy Wilson on 07-12-2023 Bilirubin [Mass/Vol] 0.4 mg/dL Normal 0.3-1.0 [facility] Comment on above: Performed By: #### P TT, CBC, PT, BNP, CMP, HS TROP, CK #### [facility] [address] Calcium [Mass/volume] in Ser um or PlasmaOrdered By: Nancy Wilson on 07-12-2023 Calcium [Mass/Vol] 8.5 mg/dL Low 8.6-10.3 [facility] Comment on above: Performed By: #### P TT, CBC, PT, BNP, CMP, HS TROP, CK #### [address] Carbon dioxide, total [Moles /volume] in Serum or PlasmaOrdered By: aNncy Wilson on 07-12-2023 CO2 [Moles/Vol] 24.5 mmol/L Normal 21.0-31.0 [facility] Comment on above: Performed By: #### P TT, CBC, PT, BNP, CMP, HS TROP, CK #### [address] Chloride [Moles/volume] in S ilia or PlasmaOrdered By: Nancy Wilson on 07-12-2023 Chloride [Moles/Vol] 102 mmol/L Normal 98-107 [facility] Comment on above: Performed By: #### P TT, CBC, PT, BNP, CMP, HS TROP, CK #### [address] Complete Blood Count Auto Di ffon 07-12-2023 Mean Corpuscular HGB Conc 32.4 g/dL Low 32.5-35.6 [facility] Comment on above: Performed By: #### P TT, CBC, PT, BNP, CMP, HS TROP, CK #### [address] Monocytes/100 WBC (Bld) 18.12 % Normal 0.00-20.00 [facility] Comment on above: Performed By: #### P TT, CBC, PT, BNP, CMP, HS TROP, CK #### [address] NRBC% 0.1 /100{WBC} Normal 0-0.[address] [facility] Comment on above: Performed By: #### P TT, CBC, PT, BNP, CMP, HS TROP, CK #### [address] Comprehensive Metabolic Pane guy 07-12-2023 Albumin [Mass/Vol] 3.9 g/dL Normal 3.5-5.7 [facility] Comment on above: Performed By: #### P TT, CBC, PT, BNP, CMP, HS TROP, CK #### [address] Creatinine Clr Calc Pharmacy 54.64 Normal [facility] Comment on above: Result Comment: PERF ORMED BY: [place] [address] PATHOLOGIST COMMODITY SUPERVISOR CLIFFORD LOBATO M.D. Performed By: #### P TT, CBC, PT, BNP, CMP, HS TROP, CK #### [address] GFR/1.73 sq M.predicted MDRD (S/P/Bld) [Vol rate/Area] 42.789 mL/min/{1.73_m2} Normal [facility] Comment on above: Performed By: #### P TT, CBC, PT, BNP, CMP, HS TROP, CK #### [address] Creatine kinase [Enzymatic a ctivity/volume] in Serum or PlasmaOrdered By: Nancy Wilson on 07-12-2023 CK [Catalytic activity/Vol] 55 U/L Normal 30-223 [facility] Comment on above: Performed By: #### P TT, CBC, PT, BNP, CMP, HS TROP, CK #### [facility] [address] Creatinine [Mass/volume] in Serum or PlasmaOrdered By: Nancy Wilson on 07-12-2023 Creatinine [Mass/Vol] 1.82 mg/dL High 0.70-1.30 [facility] Comment on above: Performed By: #### P TT, CBC, PT, BNP, CMP, HS TROP, CK #### [facility] [address] ECG 12 lead ECGon 07-12-2023 ECG 12 lead ECG [facility] Main [place] [address] [place] [address] Electrocardiograph Report Signed Patient: Solomon Feldman SR MR#: [id number] : 1965 Acct:[id number] Age/Sex: 57 / M ADM Date: 07/12/23 [...] Nancy Wilson MD 01/26 0135 Normal [facility] Erythrocyte distribution wid th [Ratio] by Automated countOrdered By: Nancy Wilson on 07-12-2023 Erythrocyte distribution width (RBC) [Ratio] 17.1 % High 12.0-14.8 [facility] Comment on above: Performed By: #### P TT, CBC, PT, BNP, CMP, HS TROP, CK #### [facility] [address] [place] [address] [place] Erythrocytes [#/volume] in B lood by Automated countOrdered By: Nancy Wilson on 07-12-2023 RBC (Bld) [#/Vol] 4.63 10*6/uL Normal 3.90-5.60 [facility] Comment on above: Performed By: #### P TT, CBC, PT, BNP, CMP, HS TROP, CK #### [facility] [address] Glucose [Mass/volume] in Ser um or PlasmaOrdered By: Nancy Wilson on 07-12-2023 Glucose [Mass/Vol] 302 mg/dL High 70-100 [facility] Comment on above: ADA recommended refe rence rangeRandom Glucose Reference Range is dependent on time and content of last meal. Glucose of more than 200 mg/dL in a nonstressed, ambulatory subject supports the diagnosis of Diabetes Mellitus. Result Comment: [place] om Glucose Reference Range is dependent on time and content of last meal. Glucose of more than 200 mg/dL in a nonstressed, ambulatory subject supports the diagnosis of Diabetes Mellitus. ADA recommended reference range Performed By: #### P TT, CBC, PT, BNP, CMP, HS TROP, CK #### [facility] [address] [place] [address] [place] Hematocrit [Volume Fraction] of Blood by Automated countOrdered By: Nancy Wilson on 07-12-2023 Hematocrit (Bld) [Volume fraction] 32.7 % Low 38.8-50.0 [facility] Comment on above: Performed By: #### P TT, CBC, PT, BNP, CMP, HS TROP, CK #### [facility] [address] Hemoglobin [Mass/volume] in BloodOrdered By: Nancy Wilson on 07-12-2023 Hemoglobin (Bld) [Mass/Vol] 10.6 g/dL Low 13.0-17.0 [facility] Comment on above: Performed By: #### P TT, CBC, PT, BNP, CMP, HS TROP, CK #### [facility] [address] INR in Platelet poor plasma by Coagulation assayOrdered By: Nancy Wilson on 07-12-2023 INR Coag (PPP) [Relative time] 1.1 {INR} Normal [facility] Comment on above: INR Therapeutic Rang [...] PT, BNP, CMP, HS TROP, CK #### [address] Leukocytes [#/volume] correc jorge for nucleated erythrocytes in Blood by Automated counOrdered By: Nancy Wilson on 07-12-2023 WBC corrected for nucl RBC Auto (Bld) [#/Vol] 9.5 10*3/uL 4.1-10.5 [facility] Leukocytes [#/volume] in Blo od by Automated countOrdered By: Nancy Wilson on 07-12-2023 WBC (Bld) [#/Vol] 9.5 10*3/uL Normal 4.1-10.5 [facility] Comment on above: Performed By: #### P TT, CBC, PT, BNP, CMP, HS TROP, CK #### [address] Lymphocytes [#/volume] in Bl ood by Automated countOrdered By: Nancy Wilson on 07-12-2023 Lymphocytes (Bld) [#/Vol] 1.9 10*3/uL Normal 1.00-4.8 [facility] Comment on above: Performed By: #### P TT, CBC, PT, BNP, CMP, HS TROP, CK #### [facility] [address] [place] [address] Lymphocytes/100 leukocytes i n Blood by Automated countOrdered By: Nancy Wilson on 07-12-2023 Lymphocytes/100 WBC (Bld) 20.0 % Normal . [facility] Comment on above: Performed By: #### P TT, CBC, PT, BNP, CMP, HS TROP, CK #### [address] MCH [Entitic mass] by Automa jorge countOrdered By: Nancy Wilson on 07-12-2023 MCH (RBC) [Entitic mass] 22.8 pg Low 27.5-35.2 [facility] Comment on above: Performed By: #### P TT, CBC, PT, BNP, CMP, HS TROP, CK #### [address] MCHC Auto (RBC) [Mass/Vol]Or dered By: Nancy Wilson on 07-12-2023 MCHC (RBC) [Mass/Vol] 32.4 g/dL 32.5-35.6 [facility] MCV [Entitic volume] by Auto mated countOrdered By: Nancy Wilson on 07-12-2023 MCV (RBC) [Entitic vol] 70.6 fL Low 83.5-101 [facility] Comment on above: Performed By: #### P TT, CBC, PT, BNP, CMP, HS TROP, CK #### [address] Monocyte distribution width [Entitic volume] in Blood by AutomatedOrdered By: Nancy Wilson on 07-12-2023 Monocyte distribution width Auto (Bld) [Entitic vol] 18.12 % 0.00-20.00 [facility] Neutrophils [#/volume] in Bl ood by Automated countOrdered By: Nancy Wilson on 07-12-2023 Neutrophils (Bld) [#/Vol] 6.2 10*3/uL Normal 1.8-7.7 [facility] Comment on above: Performed By: #### P TT, CBC, PT, BNP, CMP, HS TROP, CK #### [facility] [address] [place] [address] No Panel InformationOrdered By: Nancy Wilson on 07-12-2023 Estimated GFR (CKD-EPI) 42.789 mL/Min [facility] Creatinine Clearance (Chem 54.64 [facility] Nucleated erythrocytes [Pres ence] in Blood by Automated countOrdered By: Nancy Wilson on 07-12-2023 Nucleated RBC Auto Ql (Bld) 0.1 /100{WBC} 0-0.5 [facility] Partial Thromboplastin Timeo n 07-12-2023 aPTT Coag (Bld) [Time] 29.4 s Normal 25.1-36.5 [facility] Comment on above: Result Comment: A he matocrit value greater than 55% may lead to inaccurate results in coagulation testing. Patients having hematocrit values >55% require a special collection tube for coagulation studies. Please contact the laboratory at [phone] for redraw instructions. PERFORMED BY: [place] [address] PATHOLOGIST COMMODITY SUPERVISOR CILFFORD LOBATO M.D. Performed By: #### P TT, CBC, PT, BNP, CMP, HS TROP, CK ####[facility] [address] [place] [address] Platelet mean volume [Entiti c volume] in Blood by Automated countOrdered By: Nancy Wilson on 07-12-2023 Platelet mean volume (Bld) [Entitic vol] 9.1 fL Normal 6.6-10.1 [facility] Comment on above: Performed By: #### P TT, CBC, PT, BNP, CMP, HS TROP, CK #### [facility] [address] [place] [address] Platelets [#/volume] in Bloo d by Automated countOrdered By: Nancy Wilson on 07-12-2023 Platelets (Bld) [#/Vol] 233 10*3/uL Normal 150-450 [facility] Comment on above: Performed By: #### P TT, CBC, PT, BNP, CMP, HS TROP, CK #### [facility] [address] Potassium [Moles/volume] in Serum or PlasmaOrdered By: Nancy Wilson on 07-12-2023 Potassium [Moles/Vol] 3.9 mmol/L Normal 3.5-5.1 [facility] Comment on above: Performed By: #### P TT, CBC, PT, BNP, CMP, HS TROP, CK #### [facility] [address] Protein [Mass/volume] in Ser um or PlasmaOrdered By: Nancy Wilson on 07-12-2023 Protein [Mass/Vol] 7.0 g/dL Normal 6.4-8.9 [facility] Comment on above: Performed By: #### P TT, CBC, PT, BNP, CMP, HS TROP, CK #### [address] Prothrombin time (PT)Ordered By: Nancy Wilson on 07-12-2023 PT Coag (PPP) [Time] 12.1 s Normal 9.0-12.9 [facility] Comment on above: A hematocrit value g reater than 55% may lead to inaccurate results in coagulation testing. Patients having hematocrit values >55% require a special collection tube for coagulation studies. Please contact the laboratory at [phone] for redraw instructions. Result Comment: A he matocrit value greater than 55% may lead to inaccurate results in coagulation testing. Patients having hematocrit values >55% require a special collection tube for coagulation studies. Please contact the laboratory at [phone] for redraw instructions. Performed By: #### P TT, CBC, PT, BNP, CMP, HS TROP, CK #### [address] Serum globulin measurement b y calculation (mass/volume)Ordered By: Nancy Wilson on 07-12-2023 Globulin (S) [Mass/Vol] 3.1 g/dL Normal [facility] Comment on above: Performed By: #### P TT, CBC, PT, BNP, CMP, HS TROP, CK #### [address] Serum or plasma albumin/glob ulin mass ratioOrdered By: Nancy Wilson on 07-12-2023 Albumin/Globulin [Mass ratio] 1.3 {ratio} Normal [facility] Comment on above: Performed By: #### P TT, CBC, PT, BNP, CMP, HS TROP, CK #### [address] Serum or plasma anion gap de terminationOrdered By: Nancy Wilson on 07-12-2023 Anion gap [Moles/Vol] 13.4 mmol/L Normal 6.0-15.0 [facility] Comment on above: Performed By: #### P TT, CBC, PT, BNP, CMP, HS TROP, CK #### [address] Sodium [Moles/volume] in Ser um or PlasmaOrdered By: Nancy Wilson on 07-12-2023 Sodium [Moles/Vol] 136 mmol/L Normal 136-145 [facility] Comment on above: Performed By: #### P TT, CBC, PT, BNP, CMP, HS TROP, CK #### [address] Troponin I High Sensitivityo n 07-12-2023 Troponin I High Sensitivity 4.6 pg/mL Normal 0.0-20.0 [facility] Comment on above: Result Comment: PERF ORMED BY: [place] [address] PATHOLOGIST COMMODITY SUPERVISOR CLIFFORD LOBATO M.D. Performed By: #### P TT, CBC, PT, BNP, CMP, HS TROP, CK #### [address] Troponin I.cardiac [Mass/vol ume] in Serum or Plasma by Detection limit <= 0.01 ng/Ordered By: Nancy Wilson on 07-12-2023 Troponin I.cardiac DL <= 0.01 ng/mL [Mass/Vol] 4.6 pg/mL 0.0-20.0 [facility] Urea nitrogen [Mass/volume] in Serum or PlasmaOrdered By: Nancy Wilson on 07-12-2023 Urea nitrogen [Mass/Vol] 16 mg/dL Normal 7-25 [facility] Comment on above: Performed By: #### P TT, CBC, PT, BNP, CMP, HS TROP, CK #### [facility] [address] XR chest 1V portableon 07-12 XR chest 1V portable [facility] Main [place] [address] [place] [address] XRay Report Signed Patient: Solomon Feldman SR MR#: [id number] : 1965 Acct:[id number] Age/Sex: 57 / M ADM Date: 07/12/23 [...] M.D.07/12/2023 5:08 PM Dictation Location: [place] [address] Transcribed By: [facility] 07/12/23 170 Dictated By: Sudeep Lind DO 07/12/231706 Signed By: 07/12/231707 Normal [facility] Patient Educationon 06-02-20 23 [...] Follow these instructions at home: ? Take ddgj-esq-frtyvtq and prescription medicines only as told by [...] the medicine (more content not included)... [facility] Retail - Clinical Noteon Retail - Clinical Note [id number]#1.00TIFF [facility] Urology Office/Clinic Noteon 06-02-2023 Urology Office/Clinic Note Chief Complaint S/p to Cysto HPI Staff Sp to Cysto done [place] [facility] [place]- Has not noticed any difference- [...] Contact Information SOLEDAD HERRERA, Rigo Blum, [address] [place] [address]- Additional Instructions: 1 month w/ cath volumes [...] (more content not included)... Normal [facility] Comment on above: Result Comment: Elec tronically Signed By: Rigo ROWE MD\.br\Date and Time Signed: 06/02/23 12:16 EST\.br\Electronically Co-Signed By: Mattie Foster.br\Date and Time Co-Signed: 06/02/23 12:04 EST Patient Educationon 05-03-[address] [facility] Pathology Noteon 05-01-2023 Pathology Note [id number]#1.00TIFF [facility] Lab Reportson 04-14-2023 Lab Reports [id number]#1.00TIFF Normal [facility] Operative Reporton Operative Report [id number]#1.00TIFF [facility] Patient Correspondenceon Patient Correspondence [id number]#1.00TIFF [facility] Lab Reportson 03-31-2023 Lab Reports [id number]#1.00TIFF [facility] RAD - MISCon 03-31-2023 RAD - MISC [id number]#1.00TIFF [facility] Patient Correspondenceon Patient Correspondence [id number]#1.00TIFF [facility] Formson 03-23-2023 Forms [id number]#[address].00[address]FF [facility] A1C HEMOGLOBINon 03-15-2023 HbA1c (Bld) [Mass fraction] 7.5 % CSS99 Other HbA1c (Bld) [Mass fraction]o n 03-15-2023 A1C HEMOGLOBIN [employer] Other Lab Reportson 03-09-2023 Lab Reports [id number]#1.00TIFF [facility] Consultation Noteon 02-27-20 23 Consultation Note [id number]#1.00CD:[address] [facility] Consent for Procedure/Surger yon 02-15-2023 Consent for Procedure/Surgery [id number]#1.00CD:[address] [facility] Office Visit (Cardiology)on 02-15-2023 Follow-up visit [...] in adult Healthy Weight Tips; Status:Complete; Done: [id number] Patient Instructions Please bring all medicines, vitamins, [...] Sia HERRERA, (more content not included)... Normal [facility] Tobacco Screening.on 023 Fall risk assessment c) Not medically indicated [facility] 250 DO Work Phone: Tobacco use status CP b) No [facility] 250 DO Work Phone: Tobacco Screening. Yes [facility] 250 DO Work Phone: Consent for Procedure/Surger yon 02-14-2023 Consent for Procedure/Surgery [id number]#1.00CD:[address] [facility] Consent for Procedure/Surgery [id number]#1.00CD:[address] [facility] Consent for Treatmenton 02-03 Consent for Treatment [id number]#1.00CD:[address] [facility] IntraOperative Documentson 0 02-14-2023 IntraOperative Documents [id number]#1.00CD:[address] [facility] IntraOperative Documents [id number]#1.00CD:[address] [facility] Main OR Intraoperative Recor don 02-14-2023 Main OR Intraoperative Record IntraOp Document Type FTURO Summary Primary Physician: Rigo ROWE MD Finalized Date/Time: 02/14/23 10:18:58 Pt. Name: MATTEO CHRISTIAN, SOLOMON Aceves/Sex: 1965 Male Med Rec #: [id number] Physician: Rigo ROWE MD Financial #: [id number] Pt. Type: O Room/Bed: / Admit/Disch: 02/14/23 08:34:46 - Institution: Case Times FTURO Entry 1 Patient Times In Room 02/14/23 09:29:00 Out Room 02/14/23 09:49:00 Procedure Times Start 02/14/23 09:42:00 Stop 02/14/23 09:45:00 Anesthesia Times Last Modified By: Mauricio STERN, Chandrika Martin 02/14/23 09:45:24 Case Attendance FTURO Entry 1 Entry 2 Entry 3 Case Attendee SOLEDAD HERRERA, Rigo Martínez RN, Chandrika Yin [facility], Sheri Daniel Role Performed Surgeon - Primary Almond Blancher Hand - Primary Scrub - Primary Time In [...] Martínez RN 02/14/23 10:18 Normal [facility] Main OR Preoperative Recordo n 02-14-2023 Main OR Preoperative Record Holding Area Document Type FTURO Summary Primary Physician: Rigo ROWE MD Finalized Date/Time: 02/14/23 09:01:37 Pt. Name: SOLOMON FELDMAN SR/Sex: 1965 Male Med Rec #: [id number] Physician: Rigo ROWE MD Financial #: [id number] Pt. Type: O Room/Bed: / Admit/Disch: 02/14/23 [...] Bolivar RN 02/14/23 09:01 Normal [facility] Operative Reporton Operative Report Patient: Joe FELDMAN [...] coverage, Follow up arranged. Normal [facility] Comment on above: Result Comment: Elec tronically [...] including vitamins, herbs, eye drops, creams, and uxdy-ums-wawcqsc medicines. ? Any problems you or family [...] tells you to take them. ? Taking weji-cuh-dlvuhtc medicines, vitamins, herbs, and supplements. Surgery safety [...] (more content not included)... Normal [facility] Progress Note-Physicianon Progress Note-Physician Patient: SOLOMON FELDMAN [...] mg = 1 tab(s), PRN, SubLingual, q5min [place] 325 mg-5 mg oral tablet 1 tab(s), [...] 278.00 / Possible Fibromyalgia / SNOMED CT [id number]-6083-69D9-0 749425H17C5 / Confirmed Restless leg / ICD-9-CM 333.94 / Confirmed Arthritis / SNOMED CT 02IU0361-1B1B-62O5-1C3Z-C [id number] / Confirmed Hyperlipidemia / SNOMED CT 26555266 / Confirmed Smoker / SNOMED CT D821WI1W-5381-69Q3-3144-Y GX0K9853GG3 / Confirmed Added secondary to documentation in Social History. Asthma / SNOMED CT 924269571 / Confirmed COPD type A / SNOMED CT 994707194 / Confirmed Head ache / SNOMED CT 66666470 / Confirmed Heart attack / SNOMED CT 33795854 / Confirmed Heart disease / SNOMED CT 07670384 / Confirmed Heart murmur / SNOMED CT 556058382 / Confirmed Urinary retention / SNOMED CT 707519517 / Confirmed BPH with obstruction/lower urinary tract symptoms / SNOMED CT 7233416733 / Confirmed Orchitis / SNOMED CT 516375320 / Confirmed Gross hematuria / SNOMED CT 755947684 / Confirmed Tobacco use / SNOMED CT HEQL4936-8795-5L91-G8Z7-0 67549SY6DT9 / Confirmed Added secondary to social history documentation. Histories Past Medical History: Active Fibromyalgia (A9O907A5-H83S-0934-51R0- 3782733T99G8) Restless leg (333.94) Arthritis (45MR4299-0I7Q-69Q3-2I5K- GRX3I080M903) Hyperlipidemia (92825459) Resolved HTN [Hypertension] (401.9): Resolved. NIDDM (250.00): Resolved. GERD [Gastroesophageal reflux disease] (530.81): Resolved. CHF (congestive heart failure) (U8254954-3V8A-7Q7W-5R23- L922715B2H30): Resolved. CA (myocardial infarction) (856B2BPB-81Q1-3I9C-4G96- 44740Z89P0JY): Resolved. Family History: Diabetes mellitus Mother Heart disease Mother Alcoholism Brother Drug addiction Brother Acute myocardial infarction Mother Grandparent Procedure history: Bilateral Eye Surgery. Comments: 07/10/2014 17:25 ALESHA Cormier RN, Kati bilateral cataracts with iol implants Bilateral Carpal Tunnel Surgery. cardiac stents. Appendectomy (690820742). Colonoscopy (417469838). Cataract extraction and insertion of intraocular lens (4275640878). Procedure on back (171985169). Social History Social & Psychosocial Habits Alcohol [...] (more content not included)... Normal [facility] Comment on above: Result Comment: Elec tronically Signed By: SOLEDAD HERRERA, Rigo Blum\.br\Date and Time Signed: 02/14/23 09:58 EDT Consent for Treatmenton Consent for Treatment [id number]#1.00CD:12 7 Normal [facility] Ambulatory Visit Summaryon 0 01-30-2023 Ambulatory Visit Summary MATTEO CHRISTIAN, OSLOMON Daniel :1965 Visit Date:01/30/2023 Ambulatory Visit Instructions Your Diagnosis Urinary retention Gross hematuria BPH with obstruction/lower urinary tract symptoms Orchitis Your Care Team Attending Physician - SOLEDAD HERRERA, Rigo Blum Primary Care Physician - JENARO LYNCH DO This Is Your Medications List Contact prescribing physician if questions or concerns acetaminophen-hydrocodone ([place] 325 mg-5 mg oral tablet) albuterol (ProAir [...] [facility] [address], [place] [address]- [phone] Medications What How Much When Instructions Unchanged acetaminophen-hydrocodone ([place] 325 mg-5 mg oral tablet) 1 Tablets [...] (more content not included)... Normal [facility] Patient Educationon 01-31-20 23 Patient Education Urology [...] including vitamins, herbs, eye drops, creams, and jgcz-vpl-rikaiak medicines. ? Whether you are or may [...] (more content not included)... Normal [facility] Urology Office/Clinic Noteon 01-30-2023 Urology Office/Clinic Note [...] [facility] [address], [place] [address] [phone] Additional Instructions: sched cysto/uros Patient Education Urodynamic [...] failure) GERD [Gastroesophageal reflux disease] HTN [Hypertension] CA (myocardial infarction) NIDDM Procedure/Surgical History Appendectomy, Bilateral [...] (more content not included)... Normal [facility] Comment on above: Result Comment: Elec tronically Signed By: Saima Sutton\.br\Date and Time Signed: 01/30/23 11:38 EDT [facility] CARDIAC STRESS/REST INJE CTIONon 01-25-2023 [facility] CARDIAC STRESS/REST INJECTION Patient Name: SOLOMON FELDMAN STUDY: MYOCARDIAL PERFUSION STRESS TEST WITH EXERCISE CONVERTED TO LEXISCAN Performing facility: [facility], [address] [place] [address], [address], [place], [place] [address] Provider: Dolores Feldman RN, RN INTERNSHIP PCP: Dr. Jenaro Lynch Supervising provider: Pascale Arnold MD, [facility] INDICATION: Anginal equivalent CAD; HISTORY: Gender: M; Age: 57 y/o ; Height: 182.88 cm; Weight: 97.0211665 kg. High Cholesterol; CAD; Diabetes; HTN; Palpitations; Chest Pain; Quit smoking unknown years ago. COMPARISON: Previous nuclear testing completed at [facility]. ACCESSION NUMBER(S): [id number]; [id number]; [id number] ORDERING CLINICIAN: DOLORES FELDMAN TECHNIQUE: ONE DAY [...] Electronically signed by: PASCALE ARNOLD MD Normal [facility] No Panel Informationon 01-25 Normal [facility] 250 DO Work Phone: [...] Med Order; Status:Hold For - Scheduling; Requested for:[id number]; Radiologist to Determine Optimal Study : Y [...] contact the office if new symptoms arise. 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 Normal [facility] Tobacco Screening.on 023 Adult depression screening assessment No [facility] 600 DO Work Phone: Tobacco use status CPHS b) No [facility] 600 DO Work Phone: Ambulatory Visit Summaryon 0 12-28-2022 Ambulatory Visit Summary MATTEO CHRISTIAN, SOLOMON Daniel :1965 Visit Date:12/28/2022 Ambulatory Visit Instructions Your Care Team Attending Physician - SOLEDAD HERRERA, Rigo Blum Primary Care Physician - JENARO LYNCH DO This Is Your Medications List acetaminophen-hydrocodone ([place] 325 mg-5 mg oral tablet) albuterol (ProAir [...] HERRERA, Rigo Blum Where: [facility] Alanine aminotransferase [En zymatic activity/volume] in Serum or PlasmaOrdered By: Jenaro Lynch on 09-27-2022 ALT [Catalytic activity/Vol] 15 U/L 7-52 [facility] Albumin [Mass/volume] in Ser um or Plasma by Bromocresol green (BCG) dye binding methoOrdered By: Jenaro Lynch on 09-27-2022 Albumin BCG dye [Mass/Vol] 4.1 g/dL 3.5-5.7 [facility] Alkaline phosphatase [Enzyma tic activity/volume] in Serum or PlasmaOrdered By: Jenaro Lynch on 09-27-2022 ALP [Catalytic activity/Vol] 116 U/L 34-104 [facility] Aspartate aminotransferase [ Enzymatic activity/volume] in Serum or PlasmaOrdered By: Jenaro Lynch on 04-25-2023 AST [Catalytic activity/Vol] 15 U/L 13-39 [facility] Basophils Auto (Bld) [#/Vol] Ordered By: Jenaro Lynch on 09-27-2022 Basophils (Bld) [#/Vol] 0.1 10*3/uL 0.0-0.2 [facility] Basophils/100 WBC Auto (Bld) Ordered By: Jenaro Lynch on 09-27-2022 Basophils/100 WBC (Bld) 1.1 % . [facility] Bilirubin.total [Mass/volume ] in Serum or PlasmaOrdered By: Jenaro Lynch on 09-27-2022 Bilirubin [Mass/Vol] 0.4 mg/dL 0.3-1.0 [facility] Calcium [Mass/volume] in Ser um or PlasmaOrdered By: Jenaro Lynch on 09-27-2022 Calcium [Mass/Vol] 8.8 mg/dL 8.6-10.3 [facility] Carbon dioxide, total [Moles /volume] in Serum or PlasmaOrdered By: Jenaro Lynch on 09-27-2022 CO2 [Moles/Vol] 27.2 mmol/L 21.0-31.0 [facility] Chloride [Moles/volume] in S ilia or PlasmaOrdered By: Jenaro Lynch on 09-27-2022 Chloride [Moles/Vol] 99 mmol/L 98-107 [facility] Cholesterol [Mass/volume] in Serum or PlasmaOrdered By: Jenaro Lynch on 09-27-2022 Cholesterol [Mass/Vol] 104 mg/dL 140-200 [facility] Comment on above: Chol less than 200 m g/dl low riskChol 201-239 mg/dl borderline riskChol 240 mg/dl and greater high risk Cholesterol in LDL Calc [Mas s/Vol]Ordered By: Jenaro Lynhc on 09-27-2022 Cholesterol in LDL [Mass/Vol] TNP [facility] Comment on above: Test not performed Cholesterol in LDL [Mass/vol ume] in Serum or PlasmaOrdered By: Jenaro Lynch on 09-27-2022 Cholesterol in LDL [Mass/Vol] 38 mg/dL 0-100 [facility] Comment on above: LDL ATP III CLASSIFI CATIONLDL less than 100 mg/dL OptimalLDL 100-129 mg/dL Near or above optimalLDL 130-159 mg/dL Borderline highLDL 160-189 mg/dL HighLDL greater than 189 mg/dL Very high Cholesterol in VLDL Calc [Ma ss/Vol]Ordered By: Jenaro Lynch on 09-27-2022 Cholesterol in VLDL [Mass/Vol] 99 mg/dL [facility] Creatinine [Mass/volume] in Serum or PlasmaOrdered By: Jenaro Lynch on 09-27-2022 Creatinine [Mass/Vol] 1.84 mg/dL 0.70-1.30 [facility] Eosinophils Auto (Bld) [#/Vo l]Ordered By: Jenaro Lynch on 09-27-2022 Eosinophils (Bld) [#/Vol] 0.7 10*3/uL 0.0-0.45 [facility] Eosinophils/100 WBC Auto (Bl d)Ordered By: Jenaro Lynch on 09-27-2022 Eosinophils/100 WBC (Bld) 5.9 % . [facility] Erythrocyte distribution wid th Auto (RBC) [Ratio]Ordered By: Jenaro Lynch on 09-27-2022 Erythrocyte distribution width (RBC) [Ratio] 16.0 % 12.0-14.8 [facility] Globulin Calc (S) [Mass/Vol] Ordered By: Jenaro Lynch on 09-27-2022 Globulin (S) [Mass/Vol] 2.9 g/dL [facility] Glucose [Mass/volume] in Ser um or PlasmaOrdered By: Jenaro Lynch on 09-27-2022 Glucose [Mass/Vol] 225 mg/dL 70-100 [facility] Comment on above: ADA recommended refe rence rangeRandom Glucose Reference Range is dependent on time and content of last meal. Glucose of more than 200 mg/dL in a nonstressed, ambulatory subject supports the diagnosis of Diabetes Mellitus. Hematocrit Auto (Bld) [Volum e fraction]Ordered By: Jenaro Lynch on 09-27-2022 Hematocrit (Bld) [Volume fraction] 41.0 % 38.8-50.0 [facility] Hemoglobin [Mass/volume] in BloodOrdered By: Jenaro Lynch on 09-27-2022 Hemoglobin (Bld) [Mass/Vol] 13.2 g/dL 13.0-17.0 [facility] Leukocytes [#/volume] correc jorge for nucleated erythrocytes in Blood by Automated counOrdered By: Jenaro Lynch on 09-27-2022 WBC corrected for nucl RBC Auto (Bld) [#/Vol] 12.4 10*3/uL 4.1-10.5 [facility] Lymphocytes Auto (Bld) [#/Vo l]Ordered By: Jenaro Lynch on 09-27-2022 Lymphocytes (Bld) [#/Vol] 2.3 10*3/uL 1.00-4.8 [facility] Lymphocytes/100 WBC Auto (Bl d)Ordered By: Jenaro Lynch on 09-27-2022 Lymphocytes/100 WBC (Bld) 18.2 % . [facility] MCH Auto (RBC) [Entitic mass ]Ordered By: Jenaro Lynch on 09-27-2022 MCH (RBC) [Entitic mass] 23.9 pg 27.5-35.2 [facility] MCHC Auto (RBC) [Mass/Vol]Or dered By: Jenaro Lynch on 09-27-2022 MCHC (RBC) [Mass/Vol] 32.2 g/dL 32.5-35.6 [facility] MCV Auto (RBC) [Entitic vol] Ordered By: Jenaro Lynch on 09-27-2022 MCV (RBC) [Entitic vol] 74.3 fL 83.5-101 [facility] Monocytes Auto (Bld) [#/Vol] Ordered By: Jenaro Lynch on 09-27-2022 Monocytes (Bld) [#/Vol] 1.0 10*3/uL 0.0-0.8 [facility] Monocytes/100 WBC Auto (Bld) Ordered By: Jenaro Lynch on 09-27-2022 Monocytes/100 WBC (Bld) 7.9 % . [facility] Neutrophils Auto (Bld) [#/Vo l]Ordered By: Jenaro Lynch on 09-27-2022 Neutrophils (Bld) [#/Vol] 8.3 10*3/uL 1.8-7.7 [facility] Neutrophils/100 WBC Auto (Bl d)Ordered By: Jenaro Lynch on 09-27-2022 Neutrophils/100 WBC (Bld) 66.9 % . [facility] No Panel InformationOrdered By: Jenaro Lynch on 09-27-2022 Estimated GFR (CKD-EPI) 42.232 mL/Min [facility] Creatinine Clearance (Chem N/A [facility] Nucleated erythrocytes [Pres ence] in Blood by Automated countOrdered By: Jenaro Lynch on 09-27-2022 Nucleated RBC Auto Ql (Bld) 0.1 /100{WBC} 0-0.5 [facility] Platelet mean volume Auto (B ld) [Entitic vol]Ordered By: Jenaro Lynch on 09-27-2022 Platelet mean volume (Bld) [Entitic vol] 9.1 fL 6.6-10.1 [facility] Platelets Auto (Bld) [#/Vol] Ordered By: Jenaro Lynch on 09-27-2022 Platelets (Bld) [#/Vol] 209 10*3/uL 150-450 [facility] Potassium [Moles/volume] in Serum or PlasmaOrdered By: Jenaro Lynch on 09-27-2022 Potassium [Moles/Vol] 4.3 mmol/L 3.5-5.1 [facility] Protein [Mass/volume] in Ser um or PlasmaOrdered By: Jenaro Lynch on 09-27-2022 Protein [Mass/Vol] 7.0 g/dL 6.4-8.9 [facility] RBC Auto (Bld) [#/Vol]Ordere d By: Jenaro Lynch on 09-27-2022 RBC (Bld) [#/Vol] 5.52 10*6/uL 3.90-5.60 [facility] Serum or plasma albumin/glob ulin mass ratioOrdered By: Jenaro Lynch on 09-27-2022 Albumin/Globulin [Mass ratio] 1.4 {ratio} [facility] Serum or plasma anion gap de terminationOrdered By: Jenaro Lynch on 09-27-2022 Anion gap [Moles/Vol] 14.1 mmol/L 6.0-15.0 [facility] Serum or plasma high density lipoprotein (HDL) cholesterol measurementOrdered By: Jenaro Lynch on 09-27-2022 Cholesterol in HDL [Mass/Vol] 21 mg/dL 29-71 [facility] Comment on above: HDL CHOL ATP-III CLA SSIFICATION Cardiovascular RiskHDL > or equal to 60 mg/dL LOWHDL < 40 mg/dL HIGH Serum or plasma total choles terol/high density lipoprotein (HDL) cholesterol mass ratOrdered By: Jenaro Lynch on 09-27-2022 Cholesterol.total/Chol esterol in HDL [Mass ratio] 5.0 {ratio} <5.0 [facility] Sodium [Moles/volume] in Ser um or PlasmaOrdered By: Jenaro Lynch on 09-27-2022 Sodium [Moles/Vol] 136 mmol/L 136-145 [facility] Thyrotropin [Units/volume] i n Serum or PlasmaOrdered By: Jenaro Lynch on 09-27-2022 TSH Qn 3.62 m[IU]/L 0.45-5.33 [facility] Triglyceride [Mass/volume] i n Serum or PlasmaOrdered By: Jenaro Lynch on 09-27-2022 Triglyceride [Mass/Vol] 497 mg/dL 0-149 [facility] Comment on above: If the triglyceride [...] on 09-27-2022 Urate [Mass/Vol] 6.2 mg/dL 2.4-7.6 [facility] Urea nitrogen [Mass/volume] in Serum or PlasmaOrdered By: Jenaro Lynch on 09-27-2022 Urea nitrogen [Mass/Vol] 15 mg/dL 12-27 [facility] WBC Auto (Bld) [#/Vol]Ordere d By: Jenaro Lynch on 09-27-2022 WBC (Bld) [#/Vol] 12.4 10*3/uL 4.1-10.5 [facility] A1C HEMOGLOBINon 02-15-2022 HbA1c (Bld) [Mass fraction] % CSS99 Other HbA1c (Bld) [Mass fraction]o n 02-15-2022 A1C HEMOGLOBIN [employer] Other Tobacco Screening.on 022 Adult depression screening assessment No -[facility] [facility] 250 DO Work Phone: Tobacco use status CPHS b) No -[facility] 250 DO Work Phone: A1C HEMOGLOBINon 07-27-2021 HbA1c (Bld) [Mass fraction] 11.8 % CSS99 Other HbA1c (Bld) [Mass fraction]o n 07-27-2021 A1C HEMOGLOBIN [employer] Other Vital Signs Date Time Vital Sign Value Performing Clinician Facility 10-24-2023 10:56-0400 Body height 182.9 cm Raulito Inman MD Work Phone: [facility] 10-24-2023 10:56-0400 Diastolic blood pressure 86 mm[Hg] Raulito Inman MD Work Phone: [facility] 10-24-2023 10:56-0400 Heart rate 104 /min Raulito Inman MD Work Phone: [facility] 10-24-2023 10:56-0400 Systolic blood pressure 134 mm[Hg] Raulito Inman MD Work Phone: [facility] 10-23-2023 09:37-0400 Blood Pressure Location Padmini Montes [facility] 10-23-2023 09:37-0400 Diastolic blood pressure 82 mm[Hg] Padmini Montes [facility] 10-23-2023 09:37-0400 Heart rate 107 /min Padmini Montes [facility] 10-23-2023 09:37-0400 SaO2% (BldA) [Mass fraction] 98 % Padmini Montes [facility] 10-23-2023 09:37-0400 Systolic blood pressure 130 mm[Hg] Padmini Montes [facility] 07-31-2023 12:00-0500 Diastolic blood pressure 63 mm[Hg] DO Jenaro Kuns Work Phone: [facility] 07-31-2023 12:00-0500 Heart rate 75 /min DO Jenaro Kuns Work Phone: [facility] 07-31-2023 12:00-0500 Systolic blood pressure 108 mm[Hg] DO Jenaro Kuns Work Phone: [facility] 07-31-2023 08:33-0500 Respiratory rate 18 /min DO Jenaro Kuns Work Phone: [facility] 07-12-2023 18:03-0500 Diastolic blood pressure 73 mm[Hg] DO Jenaro Kuns Work Phone: [facility] 07-12-2023 18:03-0500 Heart rate 76 /min DO Jenaro Kuns Work Phone: [facility] 07-12-2023 18:03-0500 Respiratory rate 20 /min DO Jenaro Kuns Work Phone: [facility] 07-12-2023 18:03-0500 SaO2% (BldA) [Mass fraction] 98 % DO Jenaro Kuns Work Phone: [facility] 07-12-2023 18:03-0500 Systolic blood pressure 125 mm[Hg] DO Jenaro Kuns Work Phone: [facility] 07-12-2023 16:15-0500 Body height 182.88 cm DO Jenaro Kuns Work Phone: [facility] 07-12-2023 16:15-0500 Body temperature 98.9 [degF] DO Jenaro Lynch Work Phone: [facility] 07-12-2023 16:15-0500 Body weight 99.25 kg DO Jenaro Lynch Work Phone: [facility] 06-02-2023 10:56-0500 Blood Pressure Location Rigo ROWE [facility] 06-02-2023 10:56-0500 Body temperature 96.98 [degF] Rigo RWOE [facility] 06-02-2023 10:56-0500 Diastolic blood pressure 84 mm[Hg] Rigo ROWE [facility] 06-02-2023 10:56-0500 Heart rate 68 /min Rigo ROWE [facility] 06-02-2023 10:56-0500 Systolic blood pressure 124 mm[Hg] Rigo ROWE [facility] 04-06-2023 13:15-0400 Body height 180.34 cm Jenaro Lynch Other [employer] Other 04-06-2023 13:15-0400 Body mass index (BMI) [Ratio] 29.43 kg/m2 Jenaro Lynch Other [employer] Other 04-06-2023 13:15-0400 Body weight 95.71 kg Jenaro Lynch Other [employer] Other 04-06-2023 13:15-0400 Diastolic blood pressure 70 mm[Hg] Jenaro Lynch Other [employer] Other 04-06-2023 13:15-0400 Respiratory rate 18 /min Jenaro Lynch Other [employer] Other 04-06-2023 13:15-0400 SaO2% (BldA) [Mass fraction] 97 % Jenaro Lynch Other [employer] Other 04-06-2023 13:15-0400 Systolic blood pressure 100 mm[Hg] Jenaro Lynch Other [employer] Other 03-15-2023 08:30-0400 Body height 180.34 cm Jenaro Lynch Other [employer] Other 03-15-2023 08:30-0400 Body mass index (BMI) [Ratio] 29.01 kg/m2 Jenaro Lynch Other [employer] Other 03-15-2023 08:30-0400 Body weight 94.35 kg Jenaro Lynch Other [employer] Other 03-15-2023 08:30-0400 Diastolic blood pressure 62 mm[Hg] Jenaro Lynch Other [employer] Other 03-15-2023 08:30-0400 Respiratory rate 16 /min Jenaro Lynch Other [employer] Other 03-15-2023 08:30-0400 SaO2% (BldA) [Mass fraction] 97 % Jenaro Lynch Other [employer] Other 03-15-2023 08:30-0400 Systolic blood pressure 88 mm[Hg] Jenaro Lynch Other [facility] [employer] Other 02-15-2023 10:04-0400 Body height 182.88 cm Jenaro Lynch Work Phone: [facility] 250 DO Work Phone: 02-15-2023 10:04-0400 Body mass index (BMI) [Ratio] 28.62 kg/m2 Jenaro Lynch Work Phone: [facility] 250 DO Work Phone: 02-15-2023 10:04-0400 Body surface area Derived from formula 2.18 m2 Jenaro Lynch Work Phone: [facility] 250 DO Work Phone: 02-15-2023 10:04-0400 Body weight 95.71 kg Jenaro Lynch Work Phone: [facility] 250 DO Work Phone: 02-15-2023 10:04-0400 Diastolic blood pressure 70 mm[Hg] Jenaro Lynch Work Phone: [facility] 250 DO Work Phone: 02-15-2023 10:04-0400 Heart rate 76 /min Jenaro Lynch Work Phone: [facility] 250 DO Work Phone: 02-15-2023 10:04-0400 Systolic blood pressure 102 mm[Hg] Jenaro Lynch Work Phone: [facility] 250 DO Work Phone: 01-30-2023 10:23-0400 Blood Pressure Location Rigo SOLEDAD [facility] 01-30-2023 10:23-0400 Diastolic blood pressure 74 mm[Hg] Rigo ROWE [facility] 01-30-2023 10:23-0400 Heart rate 68 /min Rigo ROWE [facility] 01-30-2023 10:23-0400 Respiratory rate 16 /min Rigo ROWE [facility] 01-30-2023 10:23-0400 Systolic blood pressure 130 mm[Hg] Rigo ROWE [facility] 01-11-2023 15:08-0400 Body height 180.34 cm Jenaro Lynch Work Phone: [facility] 600 DO Work Phone: 01-11-2023 15:08-0400 Body mass index (BMI) [Ratio] 30.13 kg/m2 Jenaro Lynch Work Phone: [facility] 600 DO Work Phone: 01-11-2023 15:08-0400 Body surface area Derived from formula 2.18 m2 Jenaro Lynch Work Phone: [facility] 600 DO Work Phone: 01-11-2023 15:08-0400 Body weight 97.98 kg Jenaro Lynch Work Phone: [facility] 600 DO Work Phone: 01-11-2023 15:08-0400 Diastolic blood pressure 86 mm[Hg] Jenaro Lynch Work Phone: [facility] 600 DO Work Phone: 01-11-2023 15:08-0400 Heart rate 74 /min Jenaro Lynch Work Phone: [facility] 600 DO Work Phone: 01-11-2023 15:08-0400 Systolic blood pressure 122 mm[Hg] Jenaro Lynch Work Phone: [facility] [place] 600 DO Work Phone: 12-01-2022 12:45-0400 Body height 180.34 cm Jenaro Lynch Other [employer] Other 12-01-2022 12:45-0400 Body mass index (BMI) [Ratio] 29.73 kg/m2 Jenaro Lynch Other [employer] Other 12-01-2022 12:45-0400 Body weight 96.71 kg Jenaro Lynch Other [employer] Other 12-01-2022 12:45-0400 Diastolic blood pressure 70 mm[Hg] Jenaro Lynch Other [employer] Other 12-01-2022 12:45-0400 Respiratory rate 18 /min Jenaro Lynch Other [employer] Other 12-01-2022 12:45-0400 SaO2% (BldA) [Mass fraction] 94 % Jenaro Lynch Other [employer] Other 12-01-2022 12:45-0400 Systolic blood pressure 122 mm[Hg] Jenaro Lynch Other [employer] Other 11-23-2022 11:38-0400 Blood Pressure Location Rigo ROWE [facility] 11-23-2022 11:38-0400 Diastolic blood pressure 85 mm[Hg] Rigo ROWE [facility] 11-23-2022 11:38-0400 Heart rate 76 /min Rigo ROWE [facility] 11-23-2022 11:38-0400 Systolic blood pressure 130 mm[Hg] Rigo ROWE [facility] 07-04-2022 10:30-0500 Body height 180.34 cm Jenaro Lynch Other [employer] [facility] [employer] Other 07-04-2022 10:30-0500 Body mass index (BMI) [Ratio] 29.43 kg/m2 Jenaro Lynch Other [employer] Other 07-04-2022 10:30-0500 Body weight 95.71 kg Jenaro Lynch Other [employer] Other 07-04-2022 10:30-0500 Diastolic blood pressure 86 mm[Hg] Jenaro Lynch Other [employer] Other 07-04-2022 10:30-0500 Respiratory rate 16 /min Jenaro Lynch Other [employer] Other 07-04-2022 10:30-0500 Systolic blood pressure 146 mm[Hg] Jenaro Lynch Other [employer] Other 02-15-2022 13:45-0400 Body height 180.34 cm Jenaro Lynch Other [employer] Other 02-15-2022 13:45-0400 Body mass index (BMI) [Ratio] 30.12 kg/m2 Jenaro Lynch Other [employer] Other 02-15-2022 13:45-0400 Body weight 97.98 kg Jenaro Lynch Other [employer] Other 02-15-2022 13:45-0400 Diastolic blood pressure 62 mm[Hg] Jenaro Lynch Other [employer] Other 02-15-2022 13:45-0400 Respiratory rate 16 /min Jenaro Lynch Other [employer] Other 02-15-2022 13:45-0400 SaO2% (BldA) [Mass fraction] 96 % Jenaro Lynch Other [employer] Other 02-15-2022 13:45-0400 Systolic blood pressure 100 mm[Hg] Jenaro Lynch Other [employer] Other 10-26-2021 10:01-0400 Body height 180.34 cm Jenaro Lynch Work Phone: [facility] 250 DO Work Phone: 10-26-2021 10:01-0400 Body mass index (BMI) [Ratio] 29.99 kg/m2 Jenaro Lynch Work Phone: [facility] [employer] 250 DO Work Phone: 10-26-2021 10:01-0400 Body surface area Derived from formula 2.17 m2 Jenaro Lynch Work Phone: [facility] [employer] 250 DO Work Phone: 10-26-2021 10:01-0400 Body weight 97.52 kg Jenaro Lynch Work Phone: [facility] 250 DO Work Phone: 10-26-2021 10:01-0400 Diastolic blood pressure 70 mm[Hg] Jenaro Lynch Work Phone: [facility] 250 DO Work Phone: 10-26-2021 10:01-0400 Heart rate 68 /min Jenaro Lynch Work Phone: [facility] 250 DO Work Phone: 10-26-2021 10:01-0400 Systolic blood pressure 104 mm[Hg] Jenaro Lynch Work Phone: [facility] [facility] 250 DO Work Phone: 10-19-2021 12:20-0400 Body height 180.34 cm Amina Rutanet Other [facility] [employer] Other 10-19-2021 12:20-0400 Body mass index (BMI) [Ratio] 30.65 kg/m2 [place] [employer] Other [employer] Other 10-19-2021 12:20-0400 Body temperature 96.8 [degF] Amina Rutanet Other [employer] Other 10-19-2021 12:20-0400 Body weight 99.7 kg [place] [employer] Other [employer] Other 10-19-2021 12:20-0400 Diastolic blood pressure 71 mm[Hg] [place] [employer] Other [employer] Other 10-19-2021 12:20-0400 Respiratory rate 18 /min [place] [employer] Other [employer] Other 10-19-2021 12:20-0400 SaO2% (BldA) [Mass fraction] 98 % Amina Fagan Other [employer] Other 10-19-2021 12:20-0400 Systolic blood pressure 111 mm[Hg] Amina Fagan Other [employer] Other 07-27-2021 14:00-0500 Body height 180.34 cm Jenaro Lynch Other [employer] Other 07-27-2021 14:00-0500 Body mass index (BMI) [Ratio] 30.4 kg/m2 Jenaro Lynch Other [employer] Other 07-27-2021 14:00-0500 Body weight 98.88 kg Jenaro Lynch Other [employer] Other 07-27-2021 14:00-0500 Diastolic blood pressure 76 mm[Hg] Jenaro Lynch Other [employer] Other 07-27-2021 14:00-0500 Respiratory rate 18 /min Jenaro Lynch Other [employer] Other 07-27-2021 14:00-0500 SaO2% (BldA) [Mass fraction] 98 % Jenaro Lynch Other [employer] Other 07-27-2021 14:00-0500 Systolic blood pressure 112 mm[Hg] Jenaro Lynch Other [employer] Other Encounters Encounter Date Encounter Type Care Provider Facility Start: 02-12-2024 ambulatory Rigo Ley ty:[facility] Start: 12-21-2023 End: 12-21-2023 ambulatory [facility] Start: 12-15-2023 End: 12-15-2023 ambulatory DO Jenaro Kuns Work Phone: [facility] Work Phone: Start: 12-15-2023 End: 12-15-2023 Departed Referred DO Jenaro Kuns Work Phone: [facility] Start: 12-10-2023 Non-patient / Non-visit DO Phillip an Kuns Work Phone: [facility] Work Phone: Start: 12-09-2023 Non-patient / Non-visit DO Phillip an Kuns Work Phone: [facility] Work Phone: Start: 11-30-2023 End: 11-30-2023 ambulatory [facility] Start: 11-26-2023 Non-patient / Non-visit DO Phillip an Kuns Work Phone: [facility] Work Phone: Start: 11-23-2023 End: 11-23-2023 ambulatory [facility] Start: 11-15-2023 End: 11-15-2023 ambulatory MAAME Hooker [facility] Start: 11-15-2023 Non-patient / Non-visit DO Phillip an Kuns Work Phone: [facility] Work Phone: Start: 11-14-2023 End: 11-14-2023 Evaluation and management of inpatient [facility] Start: 11-07-2023 End: 11-14-2023 Evaluation and management of inpatient [facility] Start: 11-07-2023 End: 11-14-2023 [facility] Start: 10-24-2023 End: 10-24-[address] [facility] Start: 10-24-2023 End: 10-24-2023 Encounter for preprocedural cardiovascular examination [facility] Start: 10-24-2023 End: 10-24-2023 Office outpatient visit 25 minutes Raulito Inman MD Work Phone: [facility] Comment on above: History of PTCA; Hyperlipidemia, unspecified hyperlipidemia type; Encounter for pre-operative cardiovascular clearance; Former smoker Start: 10-24-2023 End: 10-24-2023 Patient encounter status Raulito Inman MD Work Phone: [facility] Work Phone: Start: 10-23-2023 End: 10-23-2023 ambulatory XXXX NONE Facility:[facility] Start: 10-23-2023 End: 10-23-2023 Patient encounter procedure Padmini Montes [facility] Start: 10-19-2023 End: 10-20-2023 ambulatory Padmini Montes Facility:[facility] Start: 10-19-2023 ambulatory Padmini Montes Facili ty:[facility] Start: 10-19-2023 End: 10-19-2023 Patient encounter procedure Padmini Montes [facility] Start: 10-18-2023 End: 10-18-2023 [facility] Start: 10-06-2023 Non-patient / Non-visit DO Phillip Lynch Work Phone: [facility] Work Phone: Start: 10-05-2023 End: 10-05-2023 ambulatory DO Jenaro Lynch Work Phone: [facility] Work Phone: Start: 10-05-2023 End: 10-05-2023 Departed Referred DO Jenarogorge Fraustos Work Phone: [facility] Start: 10-05-2023 Non-patient / Non-visit DO Phillip an Kuns Work Phone: [facility] Work Phone: Start: 10-04-2023 Non-patient / Non-visit DO Phillip an Kuns Work Phone: [facility] Work Phone: Start: 10-03-2023 Non-patient / Non-visit DO Phillip an Kuns Work Phone: [facility] Work Phone: Start: 10-02-2023 End: 10-02-2023 ambulatory DO Jenarogorge Fraustos Work Phone: [facility] Work Phone: Start: 10-02-2023 End: 10-02-2023 Departed Referred DO Jenaro Jetts Work Phone: [facility] Start: 10-02-2023 Non-patient / Non-visit DO Phillip an Kuns Work Phone: [facility] Work Phone: Start: 10-01-2023 Non-patient / Non-visit DO Phillip an Kuns Work Phone: [facility] Work Phone: Start: 09-30-2023 Non-patient / Non-visit DO Phillip an Kuns Work Phone: [facility] Work Phone: Start: 09-27-2023 Non-patient / Non-visit DO Phillip an Kuns Work Phone: [facility] Work Phone: Start: 09-21-2023 End: 09-21-2023 ambulatory DO Jenaro Kuns Work Phone: [facility] Work Phone: Start: 09-21-2023 End: 09-21-2023 Departed Referred DO Jenaro Kuns Work Phone: [facility] Start: 09-21-2023 Non-patient / Non-visit DO Phillip an Kuns Work Phone: [facility] Work Phone: Start: 09-18-2023 Non-patient / Non-visit DO Phillip an Kuns Work Phone: [facility] Work Phone: Start: 09-08-2023 End: 09-08-2023 ambulatory Rigo ROWE Facility:[facility] Start: 09-08-2023 End: 09-08-2023 Patient encounter procedure Rigo ROWE [facility] Start: 08-10-2023 Non-patient / Non-visit DO Phillip an Kuns Work Phone: [facility] Work Phone: Start: 08-08-2023 Non-patient / Non-visit DO Phillip an Kuns Work Phone: [facility] Work Phone: Start: 08-07-2023 Non-patient / Non-visit DO Phillip an Kuns Work Phone: [facility] Work Phone: Start: 08-06-2023 Non-patient / Non-visit DO Phillip an Kuns Work Phone: [facility] Work Phone: Start: 08-05-2023 Non-patient / Non-visit DO Phillip an Jetts Work Phone: [facility] Work Phone: Start: 08-04-2023 Non-patient / Non-visit DO Phillip an Kuns Work Phone: [facility] Work Phone: Start: 08-03-2023 Non-patient / Non-visit DO Phillip an Jetts Work Phone: [facility] Work Phone: Start: 07-31-2023 Registered Recurring DO Jenaro Fraustos Work Phone: [facility]-Infusion Therapy - O/P Work Phone: Start: 07-31-2023 ambulatory Jenaro Lynch Facility:[facility] Start: 07-26-2023 Non-patient / Non-visit DO Phillip Fraustos Work Phone: [facility] Work Phone: Start: 07-12-2023 End: 07-12-2023 Emergency department patient visit DO Jenaro Lynch Work Phone: [facility]-Emergency Room Work Phone: Start: 07-07-2023 End: 07-07-2023 ambulatory Jenaro Lynch Other [facility] [employer] Other Start: 07-07-2023 Telephone encounter Jenaro Lynch [facility] [place] Start: 07-03-2023 End: 07-03-2023 ambulatory Rigo ROWE Facility:[facility] Start: 06-26-2023 End: 06-26-2023 ambulatory Jenaro Lynch Other [facility] [employer] Other Start: 06-26-2023 Telephone encounter Jenarogorge Fraustojoe [facility] Start: 06-02-2023 End: 06-02-2023 ambulatory Rigo ROWE Facility:[facility] Start: 06-02-2023 End: 06-02-2023 Patient encounter procedure Rigo Viktoria ROWE [facility] Start: 05-16-2023 End: 05-16-2023 ambulatory Jenarogorge Lynch Other [employer] Other Start: 05-16-2023 Telephone encounter Jenaro Syed [facility] Start: 05-03-2023 End: 05-03-2023 ambulatory Rigo ROWE Facility:[facility] Start: 05-03-2023 End: 05-03-2023 Patient encounter procedure Rigo Viktoria SOLEDAD [facility] Start: 04-28-2023 End: 04-28-2023 ambulatory Jenaro Jettjoe Other [employer] Other Start: 04-28-2023 Telephone encounter Jenaro Syed [facility] Start: 04-18-2023 End: 04-18-2023 ambulatory Rigo ROWE Facility:[facility] Start: 04-18-2023 End: 04-18-2023 Patient encounter procedure Rigo Viktoria SOLEDAD [facility] Start: 04-17-2023 ambulatory Rigo ROWE Facili ty:[facility] Start: 04-13-2023 End: 04-13-2023 ambulatory Rigo ROWE Facility:[id number] Start: 04-11-2023 End: 04-11-2023 ambulatory Jenaro Lynch Other [employer] Other Start: 04-11-2023 Telephone encounter Jenaro Lynch [facility] [place] Start: 04-06-2023 End: 04-06-2023 ambulatory Jenaro Lynch Other [employer] Other Start: 04-06-2023 Encounter for other preprocedural examination Jenarogorge Lynch [facility] [place] Start: 04-06-2023 Office outpatient vi sit 25 minutes Jenaro Lynch [facility] [place] Start: 03-28-2023 End: 03-28-2023 ambulatory Jenarogorge Lynch Other [employer] Other Start: 03-28-2023 Tele[facility] Start: 03-20-2023 ambulatory Rigo ROWE Facili ty:[facility] Start: 03-15-2023 End: 03-15-2023 ambulatory Rigo ROWE [facility] [employer] Other Start: 03-15-2023 Office outpatient vi sit 25 minutes [facility]orge [facility] Start: 03-10-2023 End: 03-10-2023 ambulatory Jenaro Jettjoe Other [employer] Other Start: 03-10-2023 Telephone encounter [facility] Start: 02-15-2023 Office outpatient vi sit 15 minutes Jenaro Lynch Work Phone: [facility] 250 DO Work Phone: Start: 02-15-2023 ambulatory Dolores Feldman Facility:[id number] Start: 02-14-2023 End: 02-14-2023 ambulatory Rigo ROWE Facility:[facility] Start: 02-14-2023 End: 02-14-2023 Patient encounter procedure Rigo ROWE [facility] Start: 02-08-2023 End: 02-08-2023 ambulatory Rigo ROWE Facility:[facility] Start: 02-08-2023 End: 02-08-2023 Patient encounter procedure Rigo R SOLEDAD [facility] Start: 01-30-2023 End: 01-30-2023 ambulatory Irgo Viktoria ROWE Facility:[facility] Start: 01-30-2023 End: 01-30-2023 Patient encounter procedure Rigo R ROWE [facility] [place] Start: 01-25-[address] Jenaro Lynch Facility:[id number] Start: 01-17-2023 End: 01-17-2023 ambulatory Jenaro Lynch Other [employer] Other Start: 01-17-2023 Telephone encounter Jenaro Lynch [facility] Start: 01-11-2023 Office outpatient vi sit 25 minutes Jenaro Lynch Work Phone: [facility] 600 DO Work Phone: Start: 01-11-2023 ambulatory Dolores Feldman Facility:[id number] Start: 12-28-2022 End: 12-28-2022 ambulatory Rigo ROWE Facility:[facility] Start: 12-28-2022 End: 12-28-2022 Patient encounter procedure Rigo R SOLEDAD [facility] [place] Start: 12-21-2022 ambulatory Rigo ROWE Facili ty:[facility] [place] Start: 12-01-2022 End: 12-01-2022 ambulatory Jenaro Lynch Other [employer] Other Start: 12-01-2022 Office outpatient vi sit 25 minutes Jenaro Lynch [facility] Start: 11-30-2022 ambulatory Rigo ROWE Facility :[facility] Start: 11-23-2022 End: 11-23-2022 Patient encounter procedure Rigo Blum SLOEDAD [facility] Start: 10-07-2022 End: 10-07-2022 ambulatory Jenaro Lynch Other [employer] Other Start: 10-07-2022 Telephone encounter Jenaro Lynch [facility] [place] Start: 09-27-2022 End: 09-27-2022 ambulatory DO Jenaro Lynch Work Phone: [facility] Work Phone: Start: 09-27-2022 End: 09-27-2022 Patient encounter procedure DO Jenaro Lynch Work Phone: [facility] [place] Work Phone: Start: 09-21-2022 End: 09-21-2022 ambulatory Jenaro Lynch Other [employer] Other Start: 09-21-2022 Telephone encounter Jenaro Lynch [facility] [place] Start: 09-14-2022 End: 09-14-2022 ambulatory Jenaro Lynch Other [employer] Other Start: 09-14-2022 Telephone encounter Jenaro Lynch [facility] [place] Start: 09-02-2022 End: 09-02-2022 Patient encounter procedure DO Jenaro Lynch Work Phone: [facility] [place] Work Phone: Start: 08-25-2022 End: 08-25-2022 ambulatory Tondra Marianous Other [employer] Other Start: 08-25-2022 Telephone encounter Doris Barnes [facility] [employer] Start: 08-22-2022 End: 08-22-2022 ambulatory Jenaro Lynch Other [employer] Other Start: 08-22-2022 Telephone encounter Jenaro Lynch [facility] Start: 08-05-2022 End: 08-05-2022 ambulatory Jenarogorge Lynch Other [facility] Other Start: 08-05-2022 Telephone encounter Jenarogorge Lynch [facility] Start: 08-04-2022 End: 08-04-2022 ambulatory Jenarogorge Lynch Other [facility] Other Start: 08-04-2022 Telephone encounter Jenaro Lynch [facility] Start: 07-28-2022 End: 07-28-2022 ambulatory Jenarogorge Lynch Other [facility] Other Start: 07-28-2022 Telephone encounter Jenaro Lynch [facility] [employer] [facility] Start: 07-25-2022 End: 07-25-2022 ambulatory Jenarogorge Lynch Other CSS[facility] Other Start: 07-25-2022 Nursing evaluation o f patient and report Jenarogorge Lynch [facility] Start: 07-19-2022 End: 07-19-2022 ambulatory Jenarogorge Lynch Other [facility] Other Start: 07-19-2022 Telephone encounter Jenaro Lynch [facility] Start: 07-15-2022 End: 07-15-2022 ambulatory Jenarogorge Lynch Other [facility] Other Start: 07-15-2022 Telephone encounter Jenarogorge Lynch [facility] Start: 07-13-2022 End: 07-13-2022 ambulatory Jenaro Fraustojoe Other [facility] Other Start: 07-13-2022 Nursing evaluation o f patient and report Jenaro Lynch [facility] [place] Start: 07-12-[address] [facility] Start: 07-05-2022 End: 07-05-2022 ambulatory Jenaro Lynch Other CSS[facility] Other Start: 07-05-2022 Telephone encounter Jenaro Lynch [facility] [place] Start: 07-05-2022 Rx Renewal Jenaro Lynch Work Phone: [facility] 250 DO Work Phone: Start: 07-04-2022 End: 07-04-2022 ambulatory Jenaro Lynch Other CSS[facility] Other Start: 07-04-2022 Office outpatient vi sit 25 minutes Jenaro Lynch [facility] Start: 06-30-2022 End: 06-30-2022 ambulatory Jenaro Lynch Other CSS[facility] Other Start: 06-30-2022 Telephone encounter Jenaro Lynch [facility] [place] Start: 05-25-2022 End: 05-25-2022 ambulatory Jenaro Lynch Other [facility] Other Start: 05-25-2022 Telephone encounter Jenaro Lynch [facility] [place] Start: 04-25-2022 End: 04-25-2022 ambulatory Jenaro Lynch Other [facility] Other Start: 04-25-2022 Telephone encounter Jenaro Lynch [facility] [place] Start: 04-19-2022 End: 04-19-2022 ambulatory Jenaro Lynch Other [facility] Other Start: 04-19-2022 Telephone encounter Jenaro Lynch [facility] Start: 03-22-2022 End: 03-22-2022 ambulatory Jenaro Lynch Other [facility] Other Start: 03-22-2022 Telephone encounter Jenaro Lynch [facility] Start: 03-01-2022 End: 03-01-2022 ambulatory Jenaro Lynch Other [facility] Other Start: 03-01-2022 Telephone encounter Jenaro Lynch [facility] [place] Start: 02-18-2022 End: 02-18-2022 ambulatory Jenaro Lynch Other [facility] Other Start: 02-18-2022 Telephone encounter Jenaro Lynch [facility] [place] Start: 02-15-2022 End: 02-15-2022 ambulatory Verona Abhit Other [facility] Other Start: 02-15-2022 Office outpatient vi sit 25 minutes Jenaro Lynch [facility] [place] Start: 02-15-2022 Telephone encounter Verona Whaley [facility] Start: 01-21-2022 End: 01-21-2022 ambulatory Jenaro Lynch Other [facility] Other Start: 01-21-2022 Telephone encounter Jenaro Lynch [facility] [place] Start: 01-19-2022 End: 01-19-2022 ambulatory Jenaro Lynch Other [facility] Other Start: 01-19-2022 Telephone encounter Jenaro Lynch [facility] Start: 01-13-2022 End: 01-13-2022 ambulatory Jenaro Lynch Other [facility] Other Start: 01-13-2022 Telephone encounter Jenaro Lynch [facility] Start: 12-23-2021 End: 12-23-2021 ambulatory Jenaro Lynch Other [facility] Other Start: 12-23-2021 Telephone encounter Jenaro Lynch [facility] Start: 11-24-2021 End: 11-24-2021 ambulatory Jenaro Lynch Other CSS[facility] Other Start: 11-24-2021 Telephone encounter Jenarogorge Lynch [facility] Start: 11-03-2021 Rx Renewal Jenaro Lynch Work Phone: [facility] 250 DO Work Phone: Start: 10-26-2021 Office outpatient vi sit 25 minutes Jenaro Lynch Work Phone: [facility] 250 DO Work Phone: Start: 10-25-2021 End: 10-25-2021 ambulatory Jenaro Syed Other [facility] Other Start: 10-25-2021 Telephone encounter Jenaro Syed [facility] Start: 10-19-2021 End: 10-19-2021 ambulatory Azjuan Amelies Other [facility] Other Start: 10-19-2021 Office outpatient vi sit 25 minutes Aziz Bakhous [facility] Start: 10-18-2021 End: 10-18-2021 ambulatory Aziz Bakhous Other CSS[facility] Other Start: 10-18-2021 Telephone encounter Azjuan Chavohous [facility] Start: 10-12-2021 End: 10-13-2021 ambulatory DUARTE HENRY . Facility: Start: 10-08-2021 End: 10-08-2021 ambulatory Jenaro Lynch Other [facility] Other Start: 10-08-2021 Telephone encounter Jenaro Lynch [facility] Start: 09-22-2021 End: 09-22-2021 ambulatory Jenaro Lynch Other [facility] Other Start: 09-22-2021 Telephone encounter Jenaro Lynch [facility] Start: 09-21-2021 End: 09-21-2021 ambulatory Jenaro Lynch Other [facility] Other Start: 09-21-2021 Telephone encounter Jenaro Lynch [facility] Start: 08-09-2021 End: 08-09-2021 ambulatory Jenaro Lynch Other [facility] Other Start: 08-09-2021 Telephone encounter Jenaro Lynch [facility] Start: 08-02-2021 End: 08-02-2021 ambulatory Jenaro Lynch Other [facility] Other Start: 08-02-2021 Telephone encounter Jenaro Lynch [facility] Start: 07-27-2021 End: 07-27-2021 ambulatory Jenaro Lynch Other [facility] Other Start: 07-27-2021 Office outpatient vi sit 25 minutes Jenaro Lynch [facility] Start: 06-23-2021 End: 06-23-2021 ambulatory Jenaro Lynch Other [facility] Other Start: 06-23-2021 Telephone encounter Jenaro Lynch [facility] Start: 06-22-2021 Rx Renewal Jenaro Lynch Work Phone: [facility] [address] DO Work Phone: Start: 05-03-2021 End: 05-03-2021 ambulatory Jenaro Lynch Other [facility] [employer] Other Start: 05-03-2021 Telephone encounter Jenaro Lynch [facility] [place] Procedures Date Procedure Procedure Detail Performing Clinician [...] Cataract surgery Jenaro diaz Work Phone: Colonoscopy Riog ROWE Decompression of med byron nerve Jenaro [...] procedure 10/21/2024 8:00 AM EDT Office Visit [facility] [address] [facility] [address] [place] [address] Dolores Feldman, [employer] [address] [place] [address] [facility] Start: 02-04-2024 Influenza vaccination Influenza Vaccine (Season Ended) [facility] Start: 11-15-2023 FUV, Provider: Raulito Inman, Status: Pen, Time: 2:40 PM FUV, Provider: Raulito Inman, Status: Pen, Time: 2:40 PM [facility] 250 DO Work Phone: Start: 10-02-2023 Acid Fast Culture Acid Fast Culture [facility] Start: 09-30-2023 Blood Culture 1 Blood Culture 1 [facility] Start: 09-30-2023 Blood Culture 2 Blood Culture 2 [facility] Start: 09-30-2023 Wound Culture Wound Culture [facility] Start: 09-21-2023 Abscess Culture Abscess Culture [facility] Start: 08-10-2023 Acid Fast Culture Acid Fast Culture [facility] Start: 08-05-2023 Wound Culture Wound Culture [facility] Start: 07-12-2023 Duplex scan of lower limb veins US venous duplex LE BI [facility] Start: 07-12-2023 US Lower extremity vein - bilateral [facility] Start: 07-12-2023 Duplex scan veins of upper limb US venous duplex UE LT [facility] Start: 07-12-2023 US Upper extremity vein - left [facility] Start: 02-15-2023 FUV, Provider: Dolores Velazquez, Status: Pen, Time: 10:00 AM FUV, Provider: Dolores Velazquez, Status: Pen, Time: 10:00 AM [facility] 600 DO Work Phone: Start: 02-03-2023 COVID-19 Vaccine ( season) COVID-19 Vaccine ( season) [facility] Start: 01-25-2023 STRESS NUC, Provider: CHARISSE HHVI NUCLEAR ,[id number], Status: Pen, Time: 8:30 AM STRESS NUC, Provider: CHARISSE HHVI NUCLEAR 01,[id number], Status: Pen, Time: 8:30 AM [facility] 600 DO Work Phone: Start: 07-12-2022 FUV, Provider: Raulito Inman, Status: Pen, Time: 9:20 AM FUV, Provider: Raulito Inman, Status: Pen, Time: 9:20 AM [facility] 250 DO Work Phone: Start: 10-26-2021 FUV, Provider: Raulito Inman, Status: Pen, Time: 9:30 AM FUV, Provider: Raulito Inman, Status: Pen, Time: 9:30 AM [facility] 250 DO Work Phone: Start: 03-05-2019 Pneumococcal Vaccine: Pediatrics (0 to 5 Years) and At-Risk Patients (6 to 64 Years) (2 of 2 - PCV) Pneumococcal Vaccine: Pediatrics (0 to 5 Years) and At-Risk Patients (6 to 64 Years) (2 of 2 - PCV) [facility] Start: 2015 Zoster Vaccines (1 of 2) Zoster Vaccines (1 of 2) [facility] Start: 1987 DTaP/Tdap/Td Vaccines (1 - Tdap) DTaP/Tdap/Td Vaccines (1 - Tdap) [facility] Start: 1984 Hepatitis B Vaccines (1 of 3 - 19+ 3-dose series) Hepatitis B Vaccines (1 of 3 - 19+ 3-dose series) [facility] Start: 1984 Urine screening for protein Diabetes: Urine Protein Screening [facility] Start: 1983 Hepatitis C screening Hepatitis C Screening [facility] Start: 1975 Diabetic foot examination Diabetes: Foot Exam [facility] Start: 1975 Glaucoma screening Diabetes: Retinopathy Screening [facility] Start: 1966 MMR Vaccines (1 of 1 - Standard series) MMR Vaccines (1 of 1 - Standard series) [facility] Start: 1965 Hemoglobin A1c measurement Diabetes: Hemoglobin A1C [facility] Start: 1965 HIV screening HIV Screening [facility] Start: 1965 Lipid panel Lipid Panel [facility] Start: 1965 Screening for malignant neoplasm of colon [facility] Start: 1965 Yearly Adult Physical Yearly Adult Physical [facility] Patient Education Dependent Edema (DC) [facility] Work Phone: Patient referral [facility] Work Phone: Immunizations Immunization Date Immunization Notes Care Provider Fa wilver 11-13-2020 Pfizer-BioNTech COVI D-19 Vacc 30 MCG/0.3ML Intramuscular Suspension Jenaro Lynch Work Phone: [facility] 10-23-2020 Pfizer-BioNTech COVI D-19 Vacc 30 MCG/0.3ML Intramuscular Suspension Jenaro Lynch Work Phone: [facility] 01-14-2019 influenza, seasonal, injectable Jenaro Lynch Other [facility] 01-14-2019 influenza virus vacc ine, unspecified formulation Rigo ROWE [facility] 04-02-2018 influenza virus vacc ine, unspecified formulation Rigo ROWE [facility] 04-02-2018 influenza, injectabl e, quadrivalent, preservative free DO Jenaro Lynch Work Phone: [facility] 03-05-2018 influenza virus vacc ine, unspecified formulation Jenaro Lynch Work Phone: [facility] [address] 250 DO Work Phone: 03-05-2018 pneumococcal polysaccharide vaccine, 23 valent [facility] Work Phone: 03-07-2016 influenza virus vacc ine, unspecified formulation Rigo ROWE [facility] 03-07-2016 influenza, injectabl e, quadrivalent, preservative free Jenaro Lynch Work Phone: [facility] 600 DO Work Phone: 02-22-2016 pneumococcal polysaccharide vaccine, 23 valent Jenaro Lynch Work Phone: [facility] Payers Date Payer Category Payer Unknown 2023 Self-pay [id number] 2022 Private Health Insurance [id number] 2022 Private Health Insurance [id number] 2022 Private Health Insurance [id number] 2022 Medicaid [id number] 1965 Unknown [id number] 2.16.84 0.1.094665.3.579.2.593 1965 Unknown [id number] 2.16.8 40.1.382216.3.579.2.1068 1965 Unknown [id number] 2.16. 840.1.736550.3.579.2.356 1965 Unknown [id number] 2.16. 840.1.875567.3.579.2.356 1965 Unknown [id number] 2.16. 840.1.113288.3.579.2.356 1965 Unknown [id number] 2.16.8 40.1.011233.3.579.2.727 1965 Unknown [id number] 2.16.8 40.1.787597.3.579.2.1286 1965 Unknown [id number] 2.16.8 40.1.821208.3.579.2.1285 1965 Unknown [id number] 2.16.8 40.1.129035.3.579.2.1285 1965 Unknown [id number] 2.16.8 40.1.518441.3.579.2.1285 1965 Unknown [id number] 2.16.8 40.1.048257.3.579.2.1285 1965 Unknown [id number] 2.16.8 40.1.610039.3.579.2.1285 1965 Unknown [id number] 2.16.8 40.1.073999.3.579.2.1285 1965 Unknown [id number] 2.16.8 40.1.648485.3.579.2.1285 1965 Unknown [id number] 2.16.8 40.1.909479.3.579.2. 1965 Unknown [id number] 2.16.8 40.1.951680.3.579.2. 1965 Unknown [id number] 2.16.8 40.1.896577.3.579.2. 1965 Unknown [id number] 2.16.8 40.1.388813.3.579.2. 1965 Unknown [id number] 2.16.8 40.1.295904.3.579.2. 1965 Unknown [id number] 2.16.8 40.1.996115.3.579.2. 1965 Unknown [id number] 2.16.8 40.1.394514.3.579.2. 1965 Unknown [id number] 2.16.8 40.1.494884.3.579.2. 1965 Unknown [id number] 2.16.8 40.1.176614.3.579.2. 1965 Unknown [id number] 2.16.8 40.1.068401.3.579.2.727 1965 Unknown [id number] 2.16.8 40.1.700745.3.579.2.727 1965 Unknown [id number] 2.16.8 40.1.520416.3.579.2.727 1965 Unknown [id number] 2.16.8 40.1.250188.3.579.2.727 1965 Unknown [id number] 2.16.8 40.1.049319.3.579.2.727 1965 Unknown [id number] .16.8 40.1.120462.3.579.2.727 1965 Unknown [id number] 2.16.8 40.1.440936.3.579.2.727 1965 Unknown [id number] 2.16.8 40.1.768887.3.579.2.1286 1965 Unknown [id number] 2.16.8 40.1.700638.3.579.2.1286 1965 Unknown [id number] 2.16.8 40.1.714674.3.579.2.1244 1959 Unknown [id number] 2.1 6.840.1.288103.19 Unknown [id number] 2.16.8 40.1.472388.3.579.2.531 Unknown [id number] 2.16.8 40.1.508934.3.579.2.531 Unknown [id number] 2.16.8 40.1.106745.3.579.2.531 Unknown [id number] 2.16.8 40.1.376924.3.579.2.531 Unknown [id number] 2.16.8 40.1.209833.3.579.2.531 Unknown [id number] 2.16.8 40.1.362020.3.579.2.531 Social History Date Type Detail Facility Start: 08-08-2023 Caffeine use Caffeine use [employer] Other Comment on above: 2 cups coffee, 4-6 c ups tea daily, occaional soda; qauit 07/2020; Start: 08-08-2023 [address] F [facility] Start: 07-14-2020 End: 07-12-2023 Tobacco smoking status NHIS Smoker (finding) [facility] Start: 1965 Sex Assigned At Male F [facility] Start: 11-23-2022 End: 10-23-2023 Tobacco smoking status Heavy tobacco smoker (finding) [facility] Tobacco smoking status Never [facility] Start: 10-24-2023 Tobacco smoking stat us NHIS Ex-smoker [facility] End: 06-05-2020 History of tobacco use Cigarette Smoker [facility] Work Phone: Start: 10-24-2023 Tobacco use and exposure Smokeless tobacco non-user [facility] Work Phone: Start: 10-24-2023 Alcoholic beverage intake Lifetime non-drinker (finding) [facility] Work Phone: Start: 1965 Sex assigned at Not on file [facility] Work Phone: Start: 10-14-2023 End: 10-24-2023 Exposure to SARS-CoV-2 (event) Not sure [facility] Medical Equipment Procedure Code Equipment Code [...] bilia ry stentMultiple peripheral artery stent, bare-metal [id number] FDA Start: 07-14-2020 Functional Status Date Assessment Result Facility 10-23-2023 Functional Status No [facility] 06-02-2023 Functional Status N/A [facility] 02-14-2023 Functional Status N/A [facility] 01-30-2023 Functional Status N/A [facility] 11-23-2022 Functional Status N/A [facility] Clinical Notes 06-23-2021 to 10-24-2023 Raulito Inman MD - 10/24/2023 10:20 AM EDTPatient Instructions Note Date & Type Note Facility 10-24-2023 Note Sinus tachycardia Rightward axis Poor anterior R wave progression QTc 481 ms [facility] 10-24-2023 History of Present illness Narrative Subjective [...] discussion and plan. documented in this encounter [facility] Work Phone: 10-24-2023 Instructions Rosemary Benavides [...] a cardiac standpoint documented in this encounter [facility] Work Phone: 07-13-2023 Hospital Discharge instructions Follow Up Care 07/13/2023 12:04:02 With:SOLEDAD HERRERA, Rigo Blum, URL Address: [address] [place], [place] [id number]- When: Unknown [facility] 06-26-2023 Evaluation note Encounter Date Diagnosis Assessment Notes Jun, Hyperlipidemia (ICD-10 - E78.5) [facility] Other [id number] Hospital Discharge instructions Patient Education 06/02/2023 11:57:43 [...] urethra. Follow these instructions at home: Take gtyn-ayj-wfzvnse and prescription medicines only as told by [...] provider. Document Revised: 12/08/2021 Document Reviewed: 12/08/2021 [employer] Patient Education 2022 Viss. [facility] 06/01/2023 14:05:36 With:SOLEDAD HERRERA, Rigo Blum, URL Address: [address] [place], [place] [id number]- When: Unknown [facility] 12-12-2023 Evaluation note* Encounter Date Diagnosis Assessment Notes Treatment Notes Treatment Clinical Notes May, 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) [facility] Other 11-24-2023 Evaluation note* Encounter Date Diagnosis Assessment Notes Treatment Notes Treatment Clinical Notes Apr, Diabetic nephropathy (ICD-10 - E11.21) [facility] Other 11-07-2023 Evaluation note* Encounter Date Diagnosis Assessment Notes Treatment Notes Treatment Clinical Notes Apr, Left arm pain (ICD-10 - M79.602) [facility] Other 11-02-2023 Evaluation note* Encounter Date Diagnosis [...] and to have his surgery as scheduled. 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 He was found to have [...] to continue to montior this at home. [facility] Other 10-09-2023 Note [id number] Discharge instructions Patient Education 02/14/2023 [...] including vitamins, herbs, eye drops, creams, and wlpa-rgo-qkyigtx medicines. Any problems you or family members [...] provider tells you to take them. Taking jmhy-yca-wkqyoju medicines, vitamins, herbs, and supplements. Surgery safety [...] provider. Document Revised: 02/15/2022 Document Reviewed: 02/15/2022 [employer] Patient Education 2022 Viss. [facility]09-12-2023 Note [id number]:127[facility] 02-14-2023 [id number]:127[facility]08-28-2023 Hospital Discharge instructions Patient Education 01/30/2023 11:22:32 [...] including vitamins, herbs, eye drops, creams, and sosv-dql-qbqsixk medicines. ?Whether you are or may be [...] provider. Document Revised: 02/02/2022 Document Reviewed: 12/25/2020 [employer] Patient Education 2022 Viss. 01/30/2023 11:22:30 Cystoscopy Cystoscopy Cystoscopy is a [...] including vitamins, herbs, eye drops, creams, and wowf-ajo-bdrlfqx medicines. Any problems you or family members [...] provider tells you to take them. Taking jzvz-lbq-tboomau medicines, vitamins, herbs, and supplements. Tests You [...] Follow these instructions at home: Medicines Take pcld-bnr-wtfbeen and prescription medicines only as told by [...] provider. Document Revised: 02/02/2022 Document Reviewed: 01/01/2021 My Own [employer] Patient Education 2022 Viss. 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 [facility] Other 06-21-2023 Hospital Discharge instructions Patient Education [...] provider. Document Revised: 08/11/2021 Document Reviewed: 05/07/2021 My Own [employer] Patient Education 2021 Viss. [facility] 09/14/2022 14:23:26 With:SOLEDAD HERRERA, Rigo Blum, URL Address: [facility] [address], [place] [address]- When: Unknown [facility] 05-05-2023 Evaluation note* Encounter Date Diagnosis Assessment Notes Treatment Notes Treatment Clinical Notes October, Erectile dysfunction, unspecified erectile dysfunction type (ICD-10 - N52.9) [facility] Other 04-19-2023 Evaluation note* Encounter Date Diagnosis Assessment Notes Treatment Notes Treatment Clinical Notes Sep, 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) [facility] Other 04-12-2023 Evaluation note* Encounter Date Diagnosis Assessment Notes Treatment Notes Treatment Clinical Notes Sep, 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) Sep, 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) [facility] Other 03-20-2023 Evaluation note* Encounter Date Diagnosis Assessment Notes Treatment Notes Treatment Clinical Notes Aug, Diabetic nephropathy (ICD-10 - E11.21) [facility] Other 03-03-2023 Evaluation note* Encounter Date Diagnosis Assessment Notes Treatment Notes Treatment Clinical Notes Aug, Pain in right leg (ICD-10 - M79.604) [facility] Other 03-02-2023 Evaluation note* Encounter Date Diagnosis Assessment Notes Treatment Notes Treatment Clinical Notes Aug, Pain in right leg (ICD-10 - M79.604) [facility] Other 02-20-2023 Evaluation note* Encounter Date Diagnosis Assessment Notes Treatment Notes Treatment Clinical Notes Jul, Intractable episodic headache, unspecified headache type (ICD-10 - R51.9) [facility] Other 02-14-2023 Evaluation note* Encounter Date Diagnosis Assessment Notes Treatment Notes Treatment Clinical Notes Jul, Acute intractable headache, unspecified headache type (ICD-10 - R51.9) [facility] Other 02-08-2023 Evaluation note* Encounter Date Diagnosis Assessment Notes Treatment Notes Treatment Clinical Notes Jul, Headache (ICD-10 - R51.9) [facility] Other 01-30-2023 Evaluation note* Encounter Date Diagnosis [...] medication and we will continue to monitor. [facility] Other 12-21-2022 Evaluation note* Encounter Date Diagnosis Assessment Notes Treatment Notes Treatment Clinical Notes May, Diabetic nephropathy (ICD-10 - E11.21) [facility] Other 11-21-2022 Evaluation note* Encounter Date Diagnosis Assessment Notes Treatment Notes Treatment Clinical Notes Apr, Diabetic nephropathy (ICD-10 - E11.21) [facility] Other 11-15-2022 Evaluation note* Encounter Date Diagnosis Assessment Notes Treatment Notes Treatment Clinical Notes Apr, Pain in right leg (ICD-10 - M79.604) [facility] Other 10-18-2022 Evaluation note* Encounter Date Diagnosis Assessment Notes Treatment Notes Treatment Clinical Notes Mar, Diabetic nephropathy (ICD-10 - E11.21) CSS99 Other 09-13-2022 Evaluation note* Encounter Date Diagnosis Assessment Notes Treatment Notes Treatment Clinical Notes Feb, Hypertensive chronic kidney disease with stage 1 through stage 4 chronic kidney disease, or unspecified chronic kidney disease (ICD-10 - I12.9) CSS99 Other 09-13-2022 Evaluation note* Encounter Date Diagnosis [...] Atherosclerotic hear t disease of [place] coronary artery without angina pectoris (ICD-10 - [...] is to continue to follow with the newborn photographer as scheduled. Feb, Pain in right leg [...] Noted upon review of blood work results. CSS99 Other 08-19-2022 Evaluation note* Encounter Date Diagnosis Assessment Notes Treatment Notes Treatment Clinical Notes Jan, Diabetic nephropathy (ICD-10 - E11.21) CSS99 Other 08-17-2022 Evaluation note* Encounter Date Diagnosis Assessment Notes Treatment Notes Treatment Clinical Notes Jan, Diabetic nephropathy (ICD-10 - E11.21) CSS99 Other 07-21-2022 Evaluation note* Encounter Date Diagnosis Assessment Notes Treatment Notes Treatment Clinical Notes Dec, Diabetic nephropathy (ICD-10 - E11.21) CSS99 Other 06-22-2022 Evaluation note* Encounter Date Diagnosis Assessment Notes Treatment Notes Treatment Clinical Notes Nov, Diabetic nephropathy (ICD-10 - E11.21) CSS99 Other 05-23-2022 Evaluation note* Encounter Date Diagnosis Assessment Notes Treatment Notes Treatment Clinical Notes October, Diabetic nephropathy (ICD-10 - E11.21) CSS99 Other 05-17-2022 Evaluation note* Encounter Date Diagnosis [...] 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 Inman. For this October, Other He did quit smoking since July 2020 CSS99 Other 05-16-2022 Evaluation note* Encounter Date Diagnosis Assessment Notes Treatment Notes Treatment Clinical Notes October, Hypertensive chronic kidney disease with stage 1 through stage 4 chronic kidney disease, or unspecified chronic kidney disease (ICD-10 - I12.9) October, Stage 3 chronic kidney disease, unspecified whether stage 3a or 3b CKD (ICD-10 - N18.30) CSS99 Other 05-06-2022 Evaluation note* Encounter Date Diagnosis Assessment Notes Treatment Notes Treatment Clinical Notes October, Pain in right leg (ICD-10 - M79.604) October, Pain in left leg (ICD-10 - M79.605) CSS99 Other 04-20-2022 Evaluation note* Encounter Date Diagnosis Assessment Notes Treatment Notes Treatment Clinical Notes Sep, Diabetic nephropathy (ICD-10 - E11.21) CSS99 Other 04-19-2022 Evaluation note* Encounter Date Diagnosis Assessment Notes Treatment Notes Treatment Clinical Notes Sep, Anxiety (ICD-10 - F41.9) Sep, Hypertensive chronic kidney disease with stage 1 through stage 4 chronic kidney disease, or unspecified chronic kidney disease (ICD-10 - I12.9) CSS99 Other 03-07-2022 Evaluation note* Encounter Date Diagnosis Assessment Notes Treatment Notes Treatment Clinical Notes Aug, Anxiety (ICD-10 - F41.9) CSS99 Other 02-22-2022 Evaluation note* Encounter Date Diagnosis [...] 12 pound weight loss from last visit. CSS99 Other [id number] Evaluation note* Encounter Date Diagnosis Assessment Notes Treatment Notes Treatment Clinical Notes Jun, Diabetic nephropathy (ICD-10 - E11.21) CSS99 Other Evaluation + Plan note Future Appointments Appointment Date:12/21/2022 11:00:00 AM Scheduled Provider: Location:[facility] Appointment Type:URO Nurse Visit Appointment Date:01/30/2023 10:30:00 AM Scheduled Provider:Rigo ROWE MD Location:[facility] Appointment Type:URO Office Visit [facility] Evaluation + Plan note Future Appointments Appointment Date:01/30/2023 10:15:00 AM Scheduled Provider:Rigo ROWE MD Location:[facility] Appointment Type:URO Office Visit [facility] Evaluation + Plan note Future Appointments Appointment Date:02/01/2023 10:00:00 AM Scheduled Provider: Location:[facility] Appointment Type:Urology CALL PAT FT Appointment Date:02/08/2023 09:00:00 AM Scheduled Provider: Location:[facility] Appointment Type:Urology FT Appointment Date:02/14/2023 09:15:00 AM Scheduled Provider: Location:[facility] Appointment Type:Urology FT [facility] evaluation + Plan note Future Appointments Appointment Date:02/14/2023 09:15:00 AM Scheduled Provider: Location:[facility] App[facility]ments Appointment Date:03/20/2023 08:45:00 AM Scheduled Provider: Location:[facility] Appointment Type:URO Nurse Visit Appointment Date:04/05/2023 08:00:00 AM Scheduled Provider:Rigo ROWE MD [facility] Future Appointments Appointment Date:05/03/2023 08:45:00 AM Scheduled Provider:Rigo ROWE MD Location:[facility] Appointment Type:URO Office Visit [facility] Evaluation + Plan note Future Appointments Appointment Date:07/03/2023 10:15:00 AM Scheduled Provider:Rigo ROWE MD Location:[facility] Appointment Type:URO Office Visit [facility] evaluation + Plan note Future Appointments Appointment Date:10/23/2023 09:30:00 AM Scheduled Provider:Padmini Montes MD Location[facility] Appointment Type:Vascular Follow Up (FT) [facility] noteNo InformationNocarondelet health [employer] Other evaluytrqf noteNo assessment information available [facility] Work Phone: Evaluation note* Diagnosis History of PTCA Postsurgical percutaneous transluminal coronary angioplasty status Hyperlipidemia, unspecified hyperlipidemia type Encounter for pre-operative cardiovascular clearance Former smoker Personal history of tobacco use, presenting hazards to health documented in this encounter [facility] Work Phone: History general Narrative - [...] hydrocele repair 08/2016 Surgical History cardiac cath [facility] 04/02/18 Surgical History Lt LE iliac DSA, angioplasty & stenting 09/27/2018 Surgical History Left Angiogram with one stent - Dr. Boss 07/2020 Hospitalization History Deep Depression, Anxiety; [facility] 11-11-10 Hospitalization History [facility] hypoxemia and hyper capnic respirtory failure 11/11/16 Hospitalization History chest pain [facility] 04/02/18 [employer] [facility] [employer] Other History of Present illness NarrativeReturns in [...] impact on blood pressure and diabetes were reviewed-[facility] [address] DO Work Phone: History [...] medication regimen. He denies medication side effects. [facility] 600 DO Work Phone: History of Present [...] medication regimen. He denies medication side effects. [facility] [address] DO Work Phone: Hospital course Narrative No data available for this section [facility] Discharge instructions No data available for this section [facility] [employer] Progress note No data available for this section [facility] [employer] Chief Complaint SOLOMON FELDMAN is being seen [...] ECG 12 Lead Raulito Inman MD [address] [facility] [address], [address] [address] Referral ID Status Reason Start Date Expiration Date V isits Requested Visits Authorized [id number] Authorized 10/24/2023 10/23/2024 1 1 Specialty Diagnoses / Procedures Referred By Brett mandujano Referred To Contact Cardiology Diagnoses History of PTCA Procedures Follow Up In Cardiology Raulito Inman MD [address] [facility] [address], [address] [address] Referral ID Status Reason Start Date Expiration Date V isits Requested Visits Authorized [id number] Authorized 10/24/2023 10/23/2024 1 1 Reason CANCELLED consult and treat; previous patient of Dr. Sharpe last seen in 2020; persisting intractable headaches Diagnosis 1 Acute intractable he adache, unspecified headache type (R51.9) Referral Organization [facility] [employer] [place] Referring Provider First Name Jenaro Referring Provider Last Name Syed Referring Provider Specialty Family [place] Referred Organization [facility] Referred Provider Lyssa Sharpe Referred Address [address] [place] [id number] Referred Provider Specialty Neurology Referral Priority Routine [facility] Notes [facility] 10:[facility]08 AM >Received today. [facility] request us to fill out their form and attach to Referral and send it to them and they will call patient to schedule. Referral was sent P2P and fax insurance card since it would not let me attach to referral [facility] 07/28/2022 10:23:53 AM >Spoke with Marilynn at [facility] and patient has been scheduled and cancelled the appt for 07/26/22 [facility] 07/28/2022 10:27:39 AM >Telephone encounter was sent Reason 03/31/22 @ 2:45pm consult and treat Diagnosis 1 Type 2 diabetes bobby itus with circulatory disorder (E11.59) Referral Organization [facility] [place] Referring Provider First Name Jenaro Referring Provider Last Name Syed Referring Provider Specialty Family [place] Referred Organization 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 Specialty Start Date End Date Jenaro [...] and content) DATE CREATED AUTHOR 11/11/2022 [facility] DATE CREATED AUTHOR AUTHOR'S ORGANIZ ATION 01/27/2023 [facility] DATE CREATED AUTHOR AUTHOR'S ORGANIZ ATION 02/16/2023 [facility] DATE CREATED AUTHOR AUTHOR'S ORGANIZ ATION 02/16/2023 [employer] DATE CREATED AUTHOR AUTHOR'S ORGANIZ ATION 10/22/2023 [facility] DATE CREATED AUTHOR AUTHOR'S ORGANIZ ATION 10/26/2023 [facility] DATE CREATED AUTHOR AUTHOR'S ORGANIZ ATION 11/16/2023 [facility] DATE CREATED AUTHOR AUTHOR'S ORGANIZ ATION 11/25/2023 [facility] DATE CREATED AUTHOR AUTHOR'S ORGANIZ ATION 11/29/2023 [facility] DATE CREATED AUTHOR AUTHOR'S ORGANIZ ATION 12/21/2023 [facility] DATE CREATED AUTHOR AUTHOR'S ORGANIZ ATION [facility] DATE CREATED AUTHOR AUTHOR'S ORGANIZ ATION 12/28/2023 [facility] FOR RECORDS PERTAINING TO PATIENTS [...] BE BASED ON THE PRIMARY CLINICAL RECORDS. [place] [employer] [facility] [facility] provides no warranty or guarantee of the accuracy or completeness of information in this document.
[2023-12-30 21:52] LABS: Glucometer 258 mg/dL (74-106)
[2023-12-30] MEDS: ATORVASTATIN CALCIUM 40 MG TABLET 80 MG PO (22:46)
[2023-12-30] MEDS: ROPINIROLE HCL 1 MG TABLET PO (22:47)
[2023-12-30] MEDS: INSULIN ASPART 300 UNIT/3 ML PEN SUBQ (22:47)
[2023-12-30] MEDS: TAMSULOSIN HCL 0.4 MG CAPSULE PO (22:47)
[2023-12-31] VITALS (8 sets, daily range): BP systolic 102–114; BP diastolic 61–68; PULSE 92–112; TEMP 36.6–36.7; O2SAT 96–98
[2023-12-31] MEDS: IPRATROPIUM BROMIDE 0.5 MG/2.5 ML VIAL.NEB 2 MG IH (04:54)
[2023-12-31] MEDS: ALBUTEROL SULFATE 2.5 MG/3 ML VIAL NEB IH (04:55)
[2023-12-31] MEDS: ROPINIROLE HCL 1 MG TABLET PO (05:02)
[2023-12-31] MEDS: PREGABALIN 100 MG CAPSULE 200 MG PO (05:02)
--- NOTE | 2023-12-31 06:00 | ECG_ITS ---
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
[2023-12-31 07:41] LABS: Glucometer 482 mg/dL (74-106)
[2023-12-31 07:42] LABS: Hematocrit 25.6 % (42.0-54.0); Mean Corpuscular HGB Conc 31.3 g/dL (29.9-35.2); Mean Corpuscular Hemoglobin 24.3 pg (25.9-34.0); Mean Corpuscular Volume 77.8 fL (80.0-94.0); Mean Platelet Volume 10.4 fL (9.5-13.5); Platelet Count 297 10^3/uL (150-450); Red Blood Count 3.29 10^6/uL (4.70-6.10); Red Cell Distribution Width 15.9 % (11.0-15.0); White Blood Count 8.1 10^3/uL (4.0-11.0)
[2023-12-31 07:51] LABS: Estimated Average Glucose 163 mg/dL; Glycohemoglobin A1C 7.3 % (4.5-6.2)
[2023-12-31] MEDS: INSULIN ASPART 300 UNIT/3 ML PEN SUBQ ×2 (08:04→11:44)
[2023-12-31 08:10] LABS: Chol HDL Ratio 4.9; Cholesterol 127 mg/dL (<=200); HDL Cholesterol 26 mg/dL (40-60); Triglycerides 270 mg/dL (<=150)
[2023-12-31 08:13] LABS: Alanine Aminotransferase 21 U/L (16-63); Albumin Globulin Ratio 0.6; Albumin Level 2.4 g/dL (3.4-5.0); Alkaline Phosphatase 172 U/L (46-116); Anion Gap 12.4; Aspartate Amino Transferase 8 U/L (15-37); BUN Creatinine Ratio 9.5; Bilirubin Total 0.2 mg/dL (0.2-1.0); Calcium 8.4 mg/dL (8.5-10.1); Carbon Dioxide 30.5 mmol/L (21.0-32.0); Chloride 98 mmol/L (98-107); Estimated GFR (African America 37 (>=60); Estimated GFR (Non-African Ame 31 (>=60); Globulin 3.9 g/dL; Glucose 348 mg/dL (74-106); Potassium 3.9 mmol/L (3.5-5.1); Sodium 137 mmol/L (136-145); Total Protein 6.3 g/dL (6.4-8.2); Troponin I High Sensitivity 5.8 pg/mL (4.0-76.1)
[2023-12-31 08:16] LABS: Thyroid Stimulating Hormone 3.218 uIU/mL (0.358-3.740)
[2023-12-31] MEDS: TAMSULOSIN HCL 0.4 MG CAPSULE PO (08:43)
[2023-12-31] MEDS: AMITRIPTYLINE HCL 25 MG TABLET PO (08:43)
[2023-12-31] MEDS: FUROSEMIDE 40 MG TABLET PO (08:43)
[2023-12-31] MEDS: OMEPRAZOLE 40 MG CAPSULE.DR PO (08:43)
[2023-12-31] MEDS: ASPIRIN 81 MG TABLET.DR PO (08:43)
[2023-12-31] MEDS: ISOSORBIDE MONONITRATE 30 MG TAB.ER.24H PO (08:43)
[2023-12-31] MEDS: CLOPIDOGREL BISULFATE 75 MG TABLET PO (08:43)
[2023-12-31] MEDS: METOPROLOL TARTRATE 100 MG TABLET 50 MG PO (08:43)
[2023-12-31] MEDS: CANAGLIFLOZIN 100 MG TABLET PO (08:43)
[2023-12-31 10:34] LABS: Percent Iron Saturation 2.8 %
--- NOTE | 2023-12-31 11:00 | P.HP_ITS ---
HPI H&P: HPI History of Present Illness Chief complaint: CHEST PAIN Narrative: HPI and Hospital Course: 58 y o with prior hx of CAD, PVD, T2 DM presents with exertional chest pressure and SOB for 1 months. His symptoms improve after rest. He came to ED last night and was admitted for observation. His cardiac enzymes are negative (trop). No acute changes noted on EKG. He is Chest pain free currently. 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 He has prior hx of CAD with last PCI about 4-5 years ago and no recent cardiac testing according to the patient. He is also quite anemia with Hb of 8 but denies overt signs and symptoms of bleeding. He has an appt with cardiology tomorrow. 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 Patient educated on worrisome signs and symptoms that should prompt him to seek care in ED. Opioid HPI Opioid Management Most Recent Pain and Opioid Data: Last Pain Scale 8 12/31/23 10:00 Last Pain Intensity 9 03/04/23 10:36 Last Pain Assessment 12/31/23 10:00 Last ED Pain Assessment 12/30/23 18:06 Last ORT Total Score 0 12/30/23 21:42 Last ORT Risk Category Low Risk 12/30/23 21:42 Ur Phencyclidine Scrn Negative (NEGATIVE) 03/03/23 17:24 Review of Systems ROS Status of ROS 10 or more systems reviewed and unremark able except as noted in history and below [facility] Medical History (Updated 12/31/23 @ 11:09 by Shaikh Germaine MD) Anemia ?D64.9 - Anemia, unspecified (ICD-10) Acute osteomyelitis of right foot ?M86.171 - Other acute osteomyelitis, right ankle and foot (ICD-10) CKD stage 3b, GFR 30-44 ml/min ?N18.32 - Chronic kidney disease, stage 3b (ICD-10) Chronic ulcer of right foot ?L97.519 - Non-pressure chronic ulcer of other part of right foot with unspecified severity (ICD-10) DM2 (diabetes mellitus, type 2) ?E11.9 - Type 2 diabetes mellitus without complications (ICD-10) Coronary artery disease ?I25.10 - Atherosclerotic heart disease of [place] coronary artery without angina pectoris (ICD-10) COPD (chronic obstructive pulmonary disease) ?J44.9 - Chronic obstructive pulmonary disease, unspecified (ICD-10) Hypertension ?I10 - Essential (primary) hypertension (ICD-10) Post-op bleeding Acute pain of right hip ?M25.551 - Pain in right hip (ICD-10) Foot osteomyelitis ?M86.9 - Osteomyelitis, unspecified (ICD-10) Ulcer of right foot with necrosis of bone ?L97.514 - Non-pressure chronic ulcer of other part of right foot with necrosis of bone (ICD-10) Hypocalcemia ?E83.51 - Hypocalcemia (ICD-10) Hypomagnesemia ?E83.42 - Hypomagnesemia (ICD-10) Sepsis ?A41.9 - Sepsis, unspecified organism (ICD-10) Wound of foot ?S91.309A - Unspecified open wound, unspecified foot, initial encounter (ICD- 10) Abscess of right foot ?L02.611 - Cutaneous abscess of right foot (ICD-10) Anticoagulated ?Z79.01 - ferry terminal agent (current) use of anticoagulants (ICD-10) Diabetic infection of right foot ?E11.628 - Type 2 diabetes mellitus with other skin complications (ICD-10) ?L08.9 - Local infection of the skin and subcutaneous tissue, unspecified (ICD-10) Puncture wound of right foot ?S91.331A - Puncture wound without foreign body, right foot, initial encounter (ICD-10) Cellulitis of foot, right ?L03.115 - Cellulitis of right lower limb (ICD-10) ROEL (acute kidney injury) ?N17.9 - Acute kidney failure, unspecified (ICD-10) Sepsis ?A41.9 - Sepsis, unspecified organism (ICD-10) CHF (congestive heart failure) ?I50.9 - Heart failure, unspecified (ICD-10) Migraine headache ?G43.909 - Migraine, unspecified, not intractable, without status migrainosus (ICD-10) Tobacco abuse ?Z72.0 - Tobacco use (ICD-10) Carpal tunnel syndrome ?G56.00 - Carpal tunnel syndrome, unspecified upper limb (ICD-10) Back pain ?M54.9 - Dorsalgia, unspecified (ICD-10) Arthritis ?M19.90 - Unspecified osteoarthritis, unspecified site (ICD-10) Restless leg ?G25.81 - Restless legs syndrome (ICD-10) GERD (gastroesophageal reflux disease) ?K21.9 - Gastro-esophageal reflux disease without esophagitis (ICD-10) High cholesterol ?E78.00 - Pure hypercholesterolemia, unspecified (ICD-10) Myocardial infarction ?I21.9 - Acute myocardial infarction, unspecified (ICD-10) BPH with obstruction/lower urinary tract symptoms ?N40.1 - Benign prostatic hyperplasia with lower urinary tract symptoms (ICD- 10) ?N13.8 - Other obstructive and reflux uropathy (ICD-10) Dementia ?F03.90 - Unspecified dementia, unspecified severity, without behavioral disturbance, psychotic disturbance, mood disturbance, and anxiety (ICD-10) CKD stage 4 due to type 2 diabetes mellitus ?E11.22 - Type 2 diabetes mellitus with diabetic chronic kidney disease (ICD- 10) ?N18.4 - Chronic kidney disease, stage 4 (severe) (ICD-10) Hyperlipidemia ?E78.5 - Hyperlipidemia, unspecified (ICD-10) Polyp of prostate with urinary obstruction ?N40.1 - Benign prostatic hyperplasia with lower urinary tract symptoms (ICD- 10) ?N13.8 - Other obstructive and reflux uropathy (ICD-10) Femoral artery stenosis ?I70.209 - Unspecified atherosclerosis of [place] arteries of extremities, unspecified extremity (ICD-10) Glaucoma ?H40.9 - Unspecified glaucoma (ICD-10) Carpal tunnel syndrome, bilateral ?G56.03 - Carpal tunnel syndrome, bilateral upper limbs (ICD-10) Gout ?M10.9 - Gout, unspecified (ICD-10) Neuropathy ?G62.9 - Polyneuropathy, unspecified (ICD-10) Chronic kidney disease ?N18.9 - Chronic kidney disease, unspecified (ICD-10) Weakness ?R53.1 - Weakness (ICD-10) Surgical History H/O foot surgery (08/10/23) ?Z98.890 - Other specified postprocedural states (ICD-10) S/P TURP (11/09/23) ?Z90.79 - Acquired absence of other genital organ(s) (ICD-10) H/O foot surgery (08/05/23) ?Z98.890 - Other specified postprocedural states (ICD-10) History of heart artery stent ?Z95.5 - Presence of coronary angioplasty implant and graft (ICD-10) History of spinal surgery ?Z98.890 - Other specified postprocedural states (ICD-10) History of colonoscopy ?Z98.890 - Other specified postprocedural states (ICD-10) History of carpal tunnel release ?Z98.890 - Other specified postprocedural states (ICD-10) History of cataract extraction ?Z98.49 - Cataract extraction status, unspecified eye (ICD-10) History of appendectomy ?Z90.49 - Acquired absence of other specified parts of digestive tract (ICD- 10) History of heart artery stent ?Z95.5 - Presence of coronary angioplasty implant and graft (ICD-10) Family History Mother Family history of CHF (congestive heart failure) Family history of diabetes mellitus Family history of hypertension Grandfather Family history of CHF (congestive heart failure) Family history of diabetes mellitus Family history of hypertension Family history of myocardial infarction Grandmother Family history of hypertension Social History (Updated 12/30/23 @ 21:58 by Sheri Peralta RN) Within the past year, how often did you have a drink containing alcohol: never Within the past year, how often did you have six or more drinks on one occasion: never Score interpretation: A score less than 4 is consistent with normal alcohol consumption. Smoking status: Current every day smoker What tobacco products do you use: cigarettes Cigarettes per day: 20 Years smoked: 42 Smoking pack-years: 42.00 Nicotine containing products detail: Approx 1 pack QOD Non-prescribed substance use: denies use Previous occupational history: DISABLED Known occupational exposures/hazards: No Highest level of school completed/degree received: high school graduate Are you now , , , , never or living with a partner: In a typical week, how many times do you talk on the telephone with family, friends, or neighbors: once per week How often do you get together with friends or relatives: once per week How often do you attend lutheran or congregational services: never Do you belong to any clubs or organizations such as lutheran groups unions, fraternal or athletic groups, or school groups: no Total score: 1 Score interpretation: A score of less than or equal to 1 indicates the most socially isolated. Little interest or pleasure in doing things: not at all Feeling down, depressed, or hopeless: not at all Feel stressed/tense/nervous/anxious/difficulty sleeping: not at all Due to disability, difficulty making decisions: No Do you think of yourself as: straight/heterosexual Gender Identity: male Meds Home Medications and Allergies Home Medications ?Medication ?Instructions ?Recorded ?Confirmed ?Type empagliflozin 10 mg tablet 10 mg PO DAILY 03/03/23 12/30/23 History (Jardiance) metformin 1,000 mg tablet 1,000 mg PO BID 03/03/23 12/30/23 History nitroglycerin 0.4 mg sublingual 0.4 mg sublingual Q5M PRN chest 03/03/23 12/30/23 History tablet pain omeprazole 40 mg capsule,delayed 40 mg PO DAILY 03/03/23 12/30/23 History release pregabalin 200 mg capsule 200 mg PO TID 03/03/23 12/30/23 History fremanezumab-vfrm 225 mg/1.5 mL 225 mg subcut .QMonth 08/03/23 12/30/23 History subcutaneous auto-injector (Ajovy) isosorbide mononitrate 30 mg 30 mg PO DAILY 08/03/23 12/30/23 History tablet,extended release 24 hr albuterol sulfate 90 mcg/actuation 2 inh inhalation Q8H PRN shortness 12/09/23 12/30/23 History aerosol inhaler (Proventil HFA) of breath or wheezing aspirin 81 mg tablet,delayed 81 mg PO DAILY 12/09/23 12/30/23 History release atorvastatin 80 mg tablet 80 mg PO DAILY 12/09/23 12/30/23 History clopidogrel 75 mg tablet 75 mg PO DAILY 12/09/23 12/30/23 History dulaglutide 0.75 mg/0.5 mL 0.75 mg subcut QWEEK 12/09/23 12/30/23 History subcutaneous pen injector (Bharathi) metoprolol tartrate 100 mg tablet 50 mg PO BID 12/09/23 12/30/23 History rimegepant 75 mg disintegrating 75 mg PO Q2H PRN migraine headache 12/09/23 12/30/23 History tablet (Nurtec ODT) sildenafil 100 mg tablet 100 mg PO Q24H PRN erectile 12/09/23 12/30/23 History dysfunction sitagliptin phosphate 100 mg 100 mg PO DAILY 12/09/23 12/30/23 History tablet (Januvia) tamsulosin 0.4 mg capsule 0.4 mg PO BID 12/09/23 12/30/23 History valsartan 160 1 tab PO DAILY 12/09/23 12/30/23 History mg-hydrochlorothiazide 12.5 mg tablet (Diovan HCT) amitriptyline 25 mg tablet 25 mg PO DAILY 12/10/23 12/30/23 History budesonide-formoterol HFA 160 2 inh inhalation BID 12/10/23 12/30/23 History mcg-4.5 mcg/actuation aerosol inhaler (Symbicort) furosemide 40 mg tablet (Lasix) 40 mg PO DAILY 12/10/23 12/30/23 History glimepiride 2 mg tablet 2 mg PO BIDWM 12/10/23 12/30/23 History ropinirole 1 mg tablet 1 mg PO TID 12/10/23 12/30/23 History tiotropium bromide 2.5 2 puff inhalation DAILY 12/22/23 12/30/23 History mcg/actuation mist for inhalation (Spiriva Respimat) hydrocodone 5 mg-acetaminophen 325 1 tab PO Q8H PRN pain 7 days #21 12/26/23 12/30/23 Rx mg tablet tabs Allergies Allergy/AdvReac Type Severity Reaction Status Date / Time Penicillins Allergy Severe Swelling Verified 12/21/23 19:44 of Lip/Tongue/Throat bee venom protein (honey bee) Allergy Swelling Verified 12/21/23 19:44 of Lip/Tongue/Throat latex Allergy Rash Verified 12/21/23 19:44 Exam Constitutional Vital Signs, click to edit/add: Last Vital Signs Temp 98.1 F 12/31/23 08:42 Pulse 105 H 12/31/23 09:59 Resp 18 12/31/23 08:42 BP 114/68 12/31/23 08:42 Pulse Ox 98 12/31/23 08:42 O2 Del Method Room Air 12/31/23 08:42 Documenting provider has reviewed patient's vital signs: yes Common normals: no apparent distress and oriented x3 General appearance: cooperative Respiratory Common normals: normal respiratory effort and clear to auscultation bilaterally Effort & inspection: able to speak in complete sentences Auscultation: clear to auscultation bilaterally Cardio Common normals: regular rate, S1 normal heart sound and S2 normal heart sound Rate: regular rate Heart sounds: S1 normal and S2 normal GI Common normals: Normal to inspection, nondistended, normoactive bowel sounds present, soft to palpation, non-tender and no hepatosplenomegaly Palpation: soft and no hepatosplenomegaly Neuro Common normals: oriented x3, moves all extremities and no focal motor deficits Psych Common normals: mental status grossly normal, denies hallucinations, denies homicidal ideation and denies suicidal ideation Results Labs Labs: Short CBC 12/30/23 12/31/23 Range/Units 18:15 07:15 WBC 10.7 8.1 (4.0-11.0) 10^3/uL Hgb 8.5 L 8.0 L (14.0-18.0) g/dL Hct 27.1 L 25.6 L (42.0-54.0) % Plt Count 368 297 (150-450) 10^3/uL BMP 12/30/23 12/31/23 18:15 07:15 Sodium 132 L 137 Potassium 3.6 3.9 Chloride 95 L 98 Carbon Dioxide 27.2 30.5 BUN 22.0 H 21.0 H Creatinine 2.23 H 2.22 H Glucose 193 H 348 H Calcium 9.2 8.4 L Liver Function 12/31/23 Range/Units 07:15 Total Bilirubin 0.2 (0.2-1.0) mg/dL AST 8 L (15-37) U/L ALT 21 (16-63) U/L Alkaline Phosphatase 172 H (46-116) U/L Albumin 2.4 L (3.4-5.0) g/dL Assessment and Plan Assessment and Plan (1) Chest pain: Assessment and Plan: Exertional Chest pain and SOB. No acute ischemic changes on EKG and troponin x 3 is negative. Symptoms ongoing for 1 month. Will need to follow up with cardiology - has an appt tomorrow. Qualifiers: Chest pain type: chest pain due to myocardial ischemia Ischemic chest pain type: stable angina pectoris Qualified Code(s): I20.89 - Other forms of angina pectoris (2) DM2 (diabetes mellitus, type 2): Assessment and Plan: His medications need adjustment due to his CKD. He should not be on metformin due to his CKD 4. Glipizide instead of glimepiride should be used if sulfonylureas are needed to achieve good glycemic control as its not renally excreted. Januvia should also be renally dosed. 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 Use nitroglycerin as needed. F/u with Cardiology tomorrow. C/w ASA, plavix. Qualifiers: Coronary Disease-Associated Artery/Lesion type: [place] artery [place] vs. transplanted heart: [place] heart Associated angina: with stable angina Qualified Code(s): I25.118 - Atherosclerotic heart disease of [place] coronary artery with other forms of angina pectoris (4) CKD stage 4 due to type 2 diabetes mellitus: Assessment and Plan: Recommended to follow up with Nephrology. (5) COPD (chronic obstructive pulmonary disease): Assessment and Plan: cw symbicort, spiriva. No active bronchospasm. Qualifiers: COPD type: unspecified COPD Qualified Code(s): J44.9 - Chronic obstructive pulmonary disease, unspecified (6) Hypertension: Assessment and Plan: Will d/c HCTZ as GFR is close 30. C/w valsartan, lopressor, imdur Qualifiers: Hypertension type: secondary to endocrine disorders Qualified Code(s): I15.2 - Hypertension secondary to endocrine disorders (7) BPH with obstruction/lower urinary tract symptoms: Assessment and Plan: C/w flomax (8) Anemia: Assessment and Plan: Chronic, no evidence of overt bleeding. Likely due to CKD and anemia of chronic disease. Will benefit from Epoetin - needs to f/u with nephrology. Qualifiers: Anemia type: due to chronic kidney disease Chronic kidney disease stage: stage 4 (severe) Qualified Code(s): N18.4 - Chronic kidney disease, stage 4 (severe); D63.1 - Anemia in chronic kidney disease (9) Hyperlipidemia: Assessment and Plan: C/w statin Qualifiers: Hyperlipidemia type: unspecified Qualified Code(s): E78.5 - Hyperlipidemia, unspecified
[2023-12-31] MEDS: HYDROCODONE/ACET 5-325 MG TABLET 1 TAB PO (11:44)
[2023-12-31 11:47] LABS: Glucometer 388 mg/dL (74-106)
[2024-01-01 13:10] LABS: Transferrin 241 mg/dL (177-329)
--- NOTE | 2024-01-01 14:02 | CM.DCFOLLOWU ---
1st attempt 01/01/24
== END 2023-12-31 12:01 | disposition home or self-care (01) ==
LOC: ER 20:04 → MS 21:32
PROVIDERS: Emergency Medicine; Family Medicine; Registered Nurse; Admitting Provider Internal Medicine; Emergency Provider Internal Medicine; PCP Family Medicine; Visit Provider Internal Medicine
DX: I25.118 Atherosclerotic heart disease of native coronary artery with other forms of angina pectoris (principal); E11.22 Type 2 diabetes mellitus with diabetic chronic kidney disease; N18.4 Chronic kidney disease, stage 4 (severe); J44.9 Chronic obstructive pulmonary disease, unspecified; N40.1 Benign prostatic hyperplasia with lower urinary tract symptoms; D63.1 Anemia in chronic kidney disease; E11.51 Type 2 diabetes mellitus with diabetic peripheral angiopathy without gangrene; E78.5 Hyperlipidemia, unspecified; Z79.899 Other long term (current) drug therapy; F17.210 Nicotine dependence, cigarettes, uncomplicated; Z95.5 Presence of coronary angioplasty implant and graft; Z79.82 Long term (current) use of aspirin; Z79.02 Long term (current) use of antithrombotics/antiplatelets; Z79.84 Long term (current) use of oral hypoglycemic drugs
CPT/HCPCS: 36415; 71045; 80048; 80053; 80061; 82607; 82728; 82746; 82948; 83036; 83540; 83550; 84443; 84466; 84484; 85025; 85027; 93005; 94640; 99285; G0378

== ENCOUNTER 2024-01-04 15:24 | Outpatient (OUT) | payer OTHER, SELFPAY ==
--- OUTSIDE RECORDS SUMMARY | 2024-01-04 15:48 | XMS_ITS | CCD ---
Author Organization [facility] CliniSymo Care Team Providers Care Head Teacher Name Role Phone Jenaro Lynch Unavailable Unavailable Unavailable Jenaro Lynch Unavailable Norris Faganjuan Unavailable Verona Whaley Unavailable Doris Barnes Unavailable DO Jenaro Lynch Primary Care Provider JERARDO Mclaughlin Attending Provider DO Jenaro Lynch Attending Provider [phone] ELAINE ., DUARTE Attending Unavailable ELAINE Hernandez, [...] Referring Unavailable Dr. Jenaro Lynch Primary Care Unavailmaría Inman II, Dr. Raulito Orona Referring Unavailable Dr. Jenaro Lynch Primary Care Unavailmaría Inman II, Dr. Raulito Orona Attending Unavailable DO Jenaro Lynch Primary Care Provider [phone] MD Nancy Wilson Emergency Provider [phone] DO Jenaro Lynch Primary Care Provider MD Nancy Wilson Emergency Provider [phone] JERARDO Mclaughlin Attending Provider JERARDO Mclaughlin Referring Provider [phone] Curt, LINDSEY Hooker Attending Provider [phone] DO Jenaro Lynch Primary Care Provider Jenaro Lynch DO Primary Care Provider [phone] ROWE, Yeyo R Attending Unavailable Simon, Mohamed [...] Attending Unavailable ROWE, Yeyo R Attending Unavailable Kuns, DO Jenaro Primary Care Provider [phone] Jenaro Lynhc Primary Care Unavailable Shana Mclaughlin Referring Unavailable Shana Mclaughlin Attending Unavailable Shana Mclaughlin Admitting Unavailable Jenaro Lynch Primary Care Unavailable Nancy Wilson Attending Unavailable Nancy Wilson Admitting Unavailable Highlander, Paula Hooker Admitting Unavailable Highlander, Paula Hooker Attending Unavailable Highlander, Paula Hooker Attending Unavailable Highlander, Paula Hooker Admitting Unavailable Highlander, Paula Hooker Attending Unavailable Highlander, Paula Hooker Admitting Unavailable KunJenaro diaz Primary Care Unavailable Highlander, Peter D Attending Unavailable Paula Elias Admitting Unavailable PADMINI MONTES Attending Unavailable PADMINI MONTES Attending Unavailable RAULITO INMAN Attending Unavailable JENARO LYNCH Primary Care Unavailable BERNARD DE LA CRUZ Attending Unavailable JENARO LYNCH Primary Care Unavailable Allergies Allergy Classification Reported Allergen(s) Allergy Type Date of Onset Reaction(s) Facility (20 sources) natural latex rubber; Translations: [Latex] Allergy to substance (finding) 03-27-20 23 Itching (finding), Eruption of skin (disorder) [facility] (20 sources) Penicillins; Translations: [Penicillins] Allergy to drug (finding) 11-05-19 14 Anaphylactoid reaction (disorder) [facility] (20 sources) Acetaminophen / oxyCODONE Drug Allergy vomiting [facility] Other (20 sources) tamsulosin; Translations: [TAMSULOSIN] Drug Allergy 07-14-19 21 hives [facility] (20 sources) PENICIILIN Propensity to adverse reactions SWELLING OF AIRWAY [facility] Other (10 sources) Acetaminophen; Translations: [ACETAMINOPHEN] Drug Allergy 07-14-19 21 Vomiting [facility] (11 sources) oxyCODONE; Translations: [Oxycodone] Drug Allergy 02-08-20 17 Vomiting [facility] (1 source) Penicillins Drug allergy (disorder) 09-23-19 14 [facility] Repository (16 sources) Penicillin G; Translations: [penicillin G benzathine] Drug Allergy [facility] (8 sources) Penicillin Drug Allergy anaphylaxis [facility] Other (1 source) Latex Allergy to substance 03-27-20 23 Unknown [facility] (1 source) Penicillins Drug Allergy 03-27-20 23 Anaphylaxis [facility] Work Phone: (4 sources) Isosorbide; Translations: [ISOSORBIDE MONONITRATE] Drug Allergy 08-05-19 15 [facility] Repository (1 source) Penicillins Drug allergy (disorder) 07-31-19 24 [facility] Repository (1 source) tamsulosin Drug Allergy 07-31-19 [facility] Repository Medications Current Medications Medication Drug Class(es) [...] 1:00am July 14, 2020 12:39pm Start: 10-10-2014 [place] 325 mg-5 mg oral tablet 1 [...] 1:00am Start: 11-23-2022 take 1 tablet by once daily amitriptyline (Elavil) 100 mg tablet [...] 20 MG PO Every morning 5 July 12, 2023 1:00am Start: 03-13-2019 End: [...] 30 Refills: 6 Ordered: 11-Jan-2023 Julius Feldman APRNLibbyCOMMUNITY ARTISTDolores Start : 11-Jan-2023 Active new start Start: [...] 1:00am Start: 02-14-2023 take 1 capsule by [facility] twice daily tamsulosin 0.4 mg Cap 0.4 mg = 1 cap(s), Oral, BID, # 60 cap(s), Refills(s) 3, Pharmacy: [facility]/pharmacy #[id number], 182, cm, 02/14/23 8:58:00 EDT, Height/Length Dosing, 94, kg, 01/30/23 10:24:00 EDT, Weight Dosing Start Date: 02/14/23 Status: Ordered take 1 capsule by mo [facility] once daily Tamsulosin HCl - 0.4 MG Oral Capsule TAKE 1 CAPSULE Daily Quantity: 0 Refills: 0 Ordered: 15-Feb-2023 DO Active [facility] (20 sources) Start: 01-27-2014 Start: 01-27-2014 [facility] as d irected Use as directed. Jan, Active Tiotropium [place] (Spiriva With Handihaler) 18 mcg capsule, w/inhalation device (5 sources) Start: 07-12-2023 take 1 capsule by inhalation once daily Tiotropium [place] (Spiriva With Handihaler) 18 mcg capsule, w/inhalation device Active 1 CAP INHALATION Daily July 12, 2023 1:00am puncture 1 cap using device; one dose = 2 inhalations Start: 07-12-2023 take 1 capsule by in halation once daily Tiotropium [place] (Spiriva With Handihaler) 18 mcg capsule, w/inhalation [...] Ordered Start: 07-04-2022 [facility] twelve hours tiZANidine HCl 4 MG 1 tablet as needed Orally Twice a day Jun, Active take 2 tablets by mo [facility] at bedtime tiZANidine HCl - 4 MG [...] procedure, # 2 cap(s), Refills(s) 0, Pharmacy: [facility]/pharmacy #[id number], 182, cm, 01/30/23 10:24:00 EDT, [...] take 1 tablet by mouth once daily Olmesartan-Hood chlorothiazide (Benicar Hct) 40-12.5 mg Tablet Discontinued [...] Syed Guerra take 2 tablets by mo ut twice [...] 2 Chronic obstructive pulmonary disease and bronchiectasis (16 sources) Pulmonary emphysema; Translations: [Unspecified chronic bronchitis] Onset: 4 11-23-2022 Chronic Congestive heart failure; nonhypertensive (14 sources) Congestive heart failure 10-10-2014 Chronic Coronary atherosclerosis and other heart disease (20 sources) Disorder of coronary artery; Translations: [Coronary atherosclerosis of unspecified type of vessel, [place] or graft] Onset: 2 Resolved: 2 Chronic [...] sources) Hypertensive disorder; Translations: [Essential (primary) hypertension] Onset: 4 04-02-2018 Chronic Gangrene (3 sources) 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; Translations: [Atherosclerosis of [place] arteries of extremities with gangrene, right leg] [...] Long-term current use of insulin; 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] Episodic Other and [...] lung; Translations: [Solitary pulmonary nodule] Episodic Other lower respiratory disease (2 sources) Shortness of breath; Translations: [Shortness of breath] Onset: 4 Episodic Other male genital disorders (20 sources) [...] Pain in left leg Onset: 10-08-2021 Resolved: 05-06-2022 Episodic Other connective tissue disease (1 source) [...] Test Name Value Interpretation Reference Range Facility [facility] 12-15-2023 L Specimen: [id number] Received: 12/15/23 Status: COLTON Nath Num: [id number] Spec Type: Surgical Subm Dr: Paula Elias DPM, MS Tissues: A DIGIT AMPUTATION (RT METATARSAL) Procedures: HE/3, Gross/Micro L4, Decalcification Age/ Patient Sex Location Account Attending Physician Solomon Feldman 58/M LABELL [id number] Paula Elias DPM, MS SPEC NUM: [id number] RECD: 12/15/23 STATUS: COLTON NATH NUM: [id number] SHAKIRA: 12/15/[address]: Paula Elias DPM, MS ENTERED: 12/15/[address]: Aurelio,Lab SPEC TYPE: Surgical DEPT: RAMSEY [...] and submitted following decalcification as follows: Specimen: [id number] Received: 12/15/23 Status: COLTON Tayler Num: [id number] Spec Type: Surgical Subm Dr: Paula Elias,LINDSEY, MS Tissues: A DIGIT AMPUTATION (RT METATARSAL) Procedures: LULU/Keegan, Gross/Micro L4, Decalcification Patient: Solomon Feldman SR [id number] (Continued) Specimen: [id number] Received: 12/15/23 (Continued) Gross Description (Continued) Signed (signature on file) Victor Hugo Sotelo MD 12/20/23 1207 Specimen: [id number] Received: 12/15/23 Status: COLTON Tayler Num: [id number] Spec Type: Surgical Subm Dr: Paula Elias,LINDSEY, MS Tissues: A DIGIT AMPUTATION (RT METATARSAL) Procedures: HE/3, Gross/Micro L4, Decalcification Patient: Solomon Feldman SR [id number] (Continued) Specimen: [id number] Received: 12/15/23 (Continued) Gross Description (Continued) A1: Margin #1 A2: Margins #2, #3 A3: Margins #4, #5 TW Microscopic Description Microscopic examinations are performed supporting the above interpretation CPT Codes 27063, 21291 Specimen: [id number] Received: 12/15/23 Status: COLTON Nath Num: [id number] Spec Type: Surgical Subm Dr: Paula Elias DPM, MS Tissues: A DIGIT AMPUTATION (RT METATARSAL) Procedures: HE/3, Gross/Micro L4, Decalcification Patient: Solomon Feldman SR [id number] (Continued) Signed (signature on file) Victor Hugo Sotelo MD 12/20/23 1207 Normal [facility] Basophils Auto (Bld) [#/Vol] on 12-10-2023 Basophils (Bld) [#/Vol] 0.1 10 3/uL 0.0-0.1 [facility] Basophils/100 WBC Auto (Bld) on 12-10-2023 Basophils/100 WBC (Bld) 0.9 % 0.2-2.0 [facility] Eosinophils/100 WBC Auto (Bl d)on 12-10-2023 Eosinophils/100 WBC (Bld) 2.6 % 0.9-7.0 [facility] Erythrocyte distribution wid th Auto (RBC) [Ratio]on 12-10-2023 Erythrocyte distribution width (RBC) [Ratio] 17.7 % High 11.0-15.0 [facility] Estimated glomerular filtrat ion rate (GFR) non- Americanon 12-10-2023 GFR/1.73 sq M.predicted among non-blacks MDRD (S/P/Bld) [Vol rate/Area] 38 mL/min/{1.73_m2} Low >=60 [facility] Globulin Calc (S) [Mass/Vol] on 12-10-2023 Globulin (S) [Mass/Vol] 3.9 g/dL [facility] Hematocrit Auto (Bld) [Volum e fraction]on 12-10-2023 Hematocrit (Bld) [Volume fraction] 34.2 % Low 42.0-54.0 [facility] Hemoglobin [Mass/volume] in Bloodon 12-10-2023 Hemoglobin (Bld) [Mass/Vol] 10.5 g/dL Low 14.0-18.0 [facility] Laboratory - Chemistry and C hemistry - challengeon 12-10-2023 Albumin [Mass/Vol] 2.8 g/dL Low 3.4-5.0 [facility] ALP [Catalytic activity/Vol] 119 U/L High 46-116 [facility] ALT [Catalytic activity/Vol] 11 U/L Low 16-63 [facility] AST [Catalytic activity/Vol] 10 U/L Low 15-37 [facility] Bilirubin [Mass/Vol] 0.4 mg/dL 0.2-1.0 [facility] Calcium [Mass/Vol] 8.4 mg/dL Low 8.5-10.1 [facility] Chloride [Moles/Vol] 101 mmol/L 98-107 [facility] CO2 [Moles/Vol] 27.0 mmol/L 21.0-32.0 [facility] Creatinine [Mass/Vol] 1.83 mg/dL High 0.70-1.30 [facility] GFR/1.73 sq M.predicted MDRD (S/P/Bld) [Vol rate/Area] 46 mL/min/{1.73_m2} Low >=60 [facility] Glucose [Mass/Vol] 113 mg/dL High 74-106 [facility] Potassium [Moles/Vol] 3.3 mmol/L Low 3.5-5.1 [facility] Protein [Mass/Vol] 6.7 g/dL 6.4-8.2 [facility] Sodium [Moles/Vol] 134 mmol/L Low 136-145 [facility] Urea nitrogen [Mass/Vol] 21.0 mg/dL High 7.0-18.0 [facility] Urea nitrogen/Creatinine [Mass ratio] 11.5 mg/mg [facility] Laboratory - Hematology and Cell countson 12-10-2023 Immature granulocytes/100 WBC (Bld) 0.3 % 0.0-0.5 [facility] Leukocytes [#/volume] correc jorge for nucleated erythrocytes in Blood by Automated counon 12-10-2023 WBC corrected for nucl RBC Auto (Bld) [#/Vol] 9.8 10 3/uL 4.0-11.0 [facility] Lymphocytes Auto (Bld) [#/Vo l]on 12-10-2023 Lymphocytes (Bld) [#/Vol] 1.5 10 3/uL 1.2-3.8 [facility] Lymphocytes/100 WBC Auto (Bl d)on 12-10-2023 Lymphocytes/100 WBC (Bld) 15.8 % Low 20.5-60.0 [facility] MCH Auto (RBC) [Entitic mass ]on 12-10-2023 MCH (RBC) [Entitic mass] 25.1 pg Low 25.9-34.0 [facility] MCHC Auto (RBC) [Mass/Vol]on 12-10-2023 MCHC (RBC) [Mass/Vol] 30.7 g/dL 29.9-35.2 [facility] MCV Auto (RBC) [Entitic vol] on 12-10-2023 MCV (RBC) [Entitic vol] 81.6 fL 80.0-94.0 [facility] Monocytes Auto (Bld) [#/Vol] on 12-10-2023 Monocytes (Bld) [#/Vol] 1.2 10 3/uL High 0.3-0.8 [facility] Monocytes/100 WBC Auto (Bld) on 12-10-2023 Monocytes/100 WBC (Bld) 11.9 % 1.7-12.0 [facility] Neutrophils Auto (Bld) [#/Vo l]on 12-10-2023 Neutrophils (Bld) [#/Vol] 6.7 10 3/uL High 1.4-6.5 [facility] Neutrophils/100 WBC Auto (Bl d)on 12-10-2023 Neutrophils/100 WBC (Bld) 68.5 % 43.0-75.0 [facility] No Panel Informationon 12-09 Eosinophils # (Auto) 0.3 10 3/uL 0.0-0.7 [facility] Immature Granulocyte # (Auto) 0.03 10 3/uL 0.00-0.03 [facility] Platelet mean volume Auto (B ld) [Entitic vol]on 12-10-2023 Platelet mean volume (Bld) [Entitic vol] 10.2 fL 9.5-13.5 [facility] Platelets Auto (Bld) [#/Vol] on 12-10-2023 Platelets (Bld) [#/Vol] 240 10 3/uL 150-450 [facility] RBC Auto (Bld) [#/Vol]on RBC (Bld) [#/Vol] 4.19 10 6/uL Low 4.70-6.10 [facility] Serum or plasma albumin/glob ulin mass ratioon 12-10-2023 Albumin/Globulin [Mass ratio] 0.7 {ratio} [facility] Serum or plasma anion gap de terminationon 12-10-2023 Anion gap [Moles/Vol] 9.3 mmol/L [facility] Basophils Auto (Bld) [#/Vol] on 12-09-2023 Basophils (Bld) [#/Vol] 0.1 10 3/uL 0.0-0.1 [facility] Basophils/100 WBC Auto (Bld) on 12-09-2023 Basophils/100 WBC (Bld) 1.0 % 0.2-2.0 [facility] Eosinophils/100 WBC Auto (Bl d)on 12-09-2023 Eosinophils/100 WBC (Bld) 1.6 % 0.9-7.0 [facility] Erythrocyte distribution wid th Auto (RBC) [Ratio]on 12-09-2023 Erythrocyte distribution width (RBC) [Ratio] 17.7 % High 11.0-15.0 [facility] Estimated glomerular filtrat ion rate (GFR) non- Americanon 12-09-2023 GFR/1.73 sq M.predicted among non-blacks MDRD (S/P/Bld) [Vol rate/Area] 31 mL/min/{1.73_m2} Low >=60 [facility] Fibrin D-dimer [Presence] in Platelet poor plasma by Latex agglutinationon 12-09-2023 Fibrin D-dimer LA Ql (PPP) 3.76 mg/L FEU High <=0.59 [facility] Comment on above: RESULTS CALLED TO DR [...] on 12-09-2023 Globulin (S) [Mass/Vol] 4.6 g/dL [facility] Hematocrit Auto (Bld) [Volum e fraction]on 12-09-2023 Hematocrit (Bld) [Volume fraction] 39.2 % Low 42.0-54.0 [facility] Hemoglobin [Mass/volume] in Bloodon 12-09-2023 Hemoglobin (Bld) [Mass/Vol] 12.2 g/dL Low 14.0-18.0 [facility] Laboratory - Chemistry and C hemistry - challengeon 12-09-2023 Lactate [Moles/Vol] 2.9 mmol/L High 0.4-2.0 [facility] Comment on above: RESULTS CALLED TO RM SHARPE RN Bilirubin Ql (U) Negative NEGATIVE [facility] Glucose (U) [Mass/Vol] 500 mg/dL Abnormal NEGATIVE [facility] Ketones Ql (U) Negative NEGATIVE [facility] pH (U) 6.5 [pH] 5.0-9.0 [facility] Specific gravity (U) [Rel density] 1.020 1.005-1.02 5 [facility] Urobilinogen Qn (U) 0.2 {Brendan'U}/dL 0.2-1.0 [facility] Albumin [Mass/Vol] 3.5 g/dL 3.4-5.0 [facility] ALP [Catalytic activity/Vol] 141 U/L High 46-116 [facility] ALT [Catalytic activity/Vol] 13 U/L Low 16-63 [facility] AST [Catalytic activity/Vol] 8 U/L Low 15-37 [facility] Bilirubin [Mass/Vol] 0.7 mg/dL 0.2-1.0 [facility] Calcium [Mass/Vol] 9.6 mg/dL 8.5-10.1 [facility] Chloride [Moles/Vol] 99 mmol/L 98-107 [facility] CO2 [Moles/Vol] 21.7 mmol/L 21.0-32.0 [facility] Creatinine [Mass/Vol] 2.17 mg/dL High 0.70-1.30 [facility] GFR/1.73 sq M.predicted MDRD (S/P/Bld) [Vol rate/Area] 38 mL/min/{1.73_m2} Low >=60 [facility] Glucose [Mass/Vol] 191 mg/dL High 74-106 [facility] Magnesium [Mass/Vol] 1.6 mg/dL Low 1.8-2.4 [facility] Potassium [Moles/Vol] 3.8 mmol/L 3.5-5.1 [facility] Protein [Mass/Vol] 8.1 g/dL 6.4-8.2 [facility] Sodium [Moles/Vol] 135 mmol/L Low 136-145 [facility] Urea nitrogen [Mass/Vol] 20.0 mg/dL High 7.0-18.0 [facility] Urea nitrogen/Creatinine [Mass ratio] 9.2 mg/mg [facility] Laboratory - Hematology and Cell countson 12-09-2023 Immature granulocytes/100 WBC (Bld) 0.3 % 0.0-0.5 [facility] Laboratory - Microbiology an d Antimicrobial susceptibilityon 12-09-2023 SARS-CoV-2 (COVID-19) RNA NELLY+probe Ql (Unsp spec) Negative NEGATIVE [facility] Comment on above: This test has not [...] inform ationon 12-09-2023 Appearance (U) CLEAR CLEAR [facility] Color (U) YELLOW YELLOW [facility] Laboratory - Urinalysison Leukocyte esterase Test strip Ql (U) Negative NEGATIVE [facility] Nitrite Ql (U) Negative NEGATIVE [facility] Protein Ql (U) Negative NEG/TRACE [facility] Leukocytes [#/volume] correc jorge for nucleated erythrocytes in Blood by Automated counon 12-09-2023 WBC corrected for nucl RBC Auto (Bld) [#/Vol] 9.3 10 3/uL 4.0-11.0 [facility] Lymphocytes Auto (Bld) [#/Vo l]on 12-09-2023 Lymphocytes (Bld) [#/Vol] 1.5 10 3/uL 1.2-3.8 [facility] Lymphocytes/100 WBC Auto (Bl d)on 12-09-2023 Lymphocytes/100 WBC (Bld) 15.7 % Low 20.5-60.0 [facility] MCH Auto (RBC) [Entitic mass ]on 12-09-2023 MCH (RBC) [Entitic mass] 25.6 pg Low 25.9-34.0 [facility] MCHC Auto (RBC) [Mass/Vol]on 12-09-2023 MCHC (RBC) [Mass/Vol] 31.1 g/dL 29.9-35.2 [facility] MCV Auto (RBC) [Entitic vol] on 12-09-2023 MCV (RBC) [Entitic vol] 82.4 fL 80.0-94.0 [facility] Monocytes Auto (Bld) [#/Vol] on 12-09-2023 Monocytes (Bld) [#/Vol] 0.9 10 3/uL High 0.3-0.8 [facility] Monocytes/100 WBC Auto (Bld) on 12-09-2023 Monocytes/100 WBC (Bld) 9.1 % 1.7-12.0 [facility] Neutrophils Auto (Bld) [#/Vo l]on 12-09-2023 Neutrophils (Bld) [#/Vol] 6.7 10 3/uL High 1.4-6.5 [facility] Neutrophils/100 WBC Auto (Bl d)on 12-09-2023 Neutrophils/100 WBC (Bld) 72.3 % 43.0-75.0 [facility] No Panel Informationon 12-08 Urine Microscopic Review NO [facility] Urine Occult Blood Negative NEGATIVE [facility] Eosinophils # (Auto) 0.2 10 3/uL 0.0-0.7 [facility] Immature Granulocyte # (Auto) 0.03 10 3/uL 0.00-0.03 [facility] Troponin I High Sensitivity 8.7 pg/mL 4.0-76.1 [facility] Comment on above: CUT-OFF POINTS HAVE BEEN ESTABLISHED BASED ON THE FOURTHIVERSAL DEFINITION OF MYOCARDIAL INFARCTION. THE UPPERREFERENCE LIMIT [...] volume (Bld) [Entitic vol] 10.7 fL 9.5-13.5 [facility] Platelets Auto (Bld) [#/Vol] on 12-09-2023 Platelets (Bld) [#/Vol] 294 10 3/uL 150-450 [facility] RBC Auto (Bld) [#/Vol]on RBC (Bld) [#/Vol] 4.76 10 6/uL 4.70-6.10 [facility] Serum or plasma albumin/glob ulin mass ratioon 12-09-2023 Albumin/Globulin [Mass ratio] 0.8 {ratio} [facility] Serum or plasma anion gap de terminationon 12-09-2023 Anion gap [Moles/Vol] 18.1 mmol/L [facility] Outside Operativeon 11-28-19 24 Outside Operative [id number]#1.00TIFF Normal [facility] Physician Orderon 11-28-2023 Physician Order [id number]#1.00TIFF Normal [facility] Basophils Auto (Bld) [#/Vol] on 11-26-2023 Basophils (Bld) [#/Vol] 0.1 10 3/uL 0.0-0.1 [facility] Basophils/100 WBC Auto (Bld) on 11-26-2023 Basophils/100 WBC (Bld) 1.1 % 0.2-2.0 [facility] Eosinophils/100 WBC Auto (Bl d)on 11-26-2023 Eosinophils/100 WBC (Bld) 3.5 % 0.9-7.0 [facility] Erythrocyte distribution wid th Auto (RBC) [Ratio]on 11-26-2023 Erythrocyte distribution width (RBC) [Ratio] 20.0 % High 11.0-15.0 [facility] Estimated glomerular filtrat ion rate (GFR) non- Americanon 11-26-2023 GFR/1.73 sq M.predicted among non-blacks MDRD (S/P/Bld) [Vol rate/Area] 41 mL/min/{1.73_m2} Low >=60 [facility] Globulin Calc (S) [Mass/Vol] on 11-26-2023 Globulin (S) [Mass/Vol] 4.2 g/dL [facility] Hematocrit Auto (Bld) [Volum e fraction]on 11-26-2023 Hematocrit (Bld) [Volume fraction] 33.1 % Low 42.0-54.0 [facility] Hemoglobin [Mass/volume] in Bloodon 11-26-2023 Hemoglobin (Bld) [Mass/Vol] 9.8 g/dL Low 14.0-18.0 [facility] Laboratory - Chemistry and C hemistry - challengeon 11-26-2023 Albumin [Mass/Vol] 3.2 g/dL Low 3.4-5.0 [facility] ALP [Catalytic activity/Vol] 143 U/L High 46-116 [facility] ALT [Catalytic activity/Vol] 16 U/L 16-63 [facility] AST [Catalytic activity/Vol] 14 U/L Low 15-37 [facility] Bilirubin [Mass/Vol] 0.5 mg/dL 0.2-1.0 [facility] Calcium [Mass/Vol] 9.1 mg/dL 8.5-10.1 [facility] Chloride [Moles/Vol] 101 mmol/L 98-107 [facility] CO2 [Moles/Vol] 24.2 mmol/L 21.0-32.0 [facility] Creatinine [Mass/Vol] 1.72 mg/dL High 0.70-1.30 [facility] GFR/1.73 sq M.predicted MDRD (S/P/Bld) [Vol rate/Area] 50 mL/min/{1.73_m2} Low >=60 [facility] Glucose [Mass/Vol] 132 mg/dL High 74-106 [facility] Lactate [Moles/Vol] 3.6 mmol/L High 0.4-2.0 [facility] Comment on above: RESULTS CALLED TO DR CROOK/YASMIN Potassium [Moles/Vol] 3.7 mmol/L 3.5-5.1 [facility] Protein [Mass/Vol] 7.4 g/dL 6.4-8.2 [facility] Sodium [Moles/Vol] 138 mmol/L 136-145 [facility] Urea nitrogen [Mass/Vol] 26.0 mg/dL High 7.0-18.0 [facility] Urea nitrogen/Creatinine [Mass ratio] 15.1 mg/mg [facility] Laboratory - Hematology and Cell countson 11-26-2023 ESR (Bld) [Velocity] 96 mm/h High <=20 [facility] Immature granulocytes/100 WBC (Bld) 0.4 % 0.0-0.5 [facility] Leukocytes [#/volume] correc jorge for nucleated erythrocytes in Blood by Automated counon 11-26-2023 WBC corrected for nucl RBC Auto (Bld) [#/Vol] 9.1 10 3/uL 4.0-11.0 [facility] Lymphocytes Auto (Bld) [#/Vo l]on 11-26-2023 Lymphocytes (Bld) [#/Vol] 2.1 10 3/uL 1.2-3.8 [facility] Lymphocytes/100 WBC Auto (Bl d)on 11-26-2023 Lymphocytes/100 WBC (Bld) 23.4 % 20.5-60.0 [facility] MCH Auto (RBC) [Entitic mass ]on 11-26-2023 MCH (RBC) [Entitic mass] 24.8 pg Low 25.9-34.0 [facility] MCHC Auto (RBC) [Mass/Vol]on 11-26-2023 MCHC (RBC) [Mass/Vol] 29.6 g/dL Low 29.9-35.2 [facility] MCV Auto (RBC) [Entitic vol] on 11-26-2023 MCV (RBC) [Entitic vol] 83.8 fL 80.0-94.0 [facility] Monocytes Auto (Bld) [#/Vol] on 11-26-2023 Monocytes (Bld) [#/Vol] 0.8 10 3/uL 0.3-0.8 [facility] Monocytes/100 WBC Auto (Bld) on 11-26-2023 Monocytes/100 WBC (Bld) 8.5 % 1.7-12.0 [facility] Neutrophils Auto (Bld) [#/Vo l]on 11-26-2023 Neutrophils (Bld) [#/Vol] 5.7 10 3/uL 1.4-6.5 [facility] Neutrophils/100 WBC Auto (Bl d)on 11-26-2023 Neutrophils/100 WBC (Bld) 63.1 % 43.0-75.0 [facility] No Panel InformationOrdered By: HERNAN CROOK on 11-26-2023 Blood Culture 2 [facility] Blood Culture 1 [facility] No Panel Informationon 11-25 C-Reactive Protein, Quantitative <0.50 mg/dL <=0.50 [facility] Eosinophils # (Auto) 0.3 10 3/uL 0.0-0.7 [facility] Immature Granulocyte # (Auto) 0.04 10 3/uL High 0.00-0.03 [facility] Platelet mean volume Auto (B ld) [Entitic vol]on 11-26-2023 Platelet mean volume (Bld) [Entitic vol] 10.4 fL 9.5-13.5 [facility] Platelets Auto (Bld) [#/Vol] on 11-26-2023 Platelets (Bld) [#/Vol] 371 10 3/uL 150-450 [facility] RBC Auto (Bld) [#/Vol]on RBC (Bld) [#/Vol] 3.95 10 6/uL Low 4.70-6.10 [facility] Serum or plasma albumin/glob ulin mass ratioon 11-26-2023 Albumin/Globulin [Mass ratio] 0.8 {ratio} [facility] Serum or plasma anion gap de terminationon 11-26-2023 Anion gap [Moles/Vol] 16.5 mmol/L [facility] Progress Note-Physicianon Progress Note-Physician [id number]#[id number] Normal [facility] Basophils Auto (Bld) [#/Vol] on 11-15-2023 Basophils (Bld) [#/Vol] 0.1 10 3/uL 0.0-0.1 [facility] Basophils/100 WBC Auto (Bld) on 11-15-2023 Basophils/100 WBC (Bld) 0.8 % 0.2-2.0 [facility] Eosinophils/100 WBC Auto (Bl d)on 11-15-2023 Eosinophils/100 WBC (Bld) 5.9 % 0.9-7.0 [facility] Erythrocyte distribution wid th Auto (RBC) [Ratio]on 11-15-2023 Erythrocyte distribution width (RBC) [Ratio] 20.6 % High 11.0-15.0 [facility] Estimated glomerular filtrat ion rate (GFR) non- Americanon 11-15-2023 GFR/1.73 sq M.predicted among non-blacks MDRD (S/P/Bld) [Vol rate/Area] 44 mL/min/{1.73_m2} Low >=60 [facility] Globulin Calc (S) [Mass/Vol] on 11-15-2023 Globulin (S) [Mass/Vol] 4.7 g/dL [facility] Hematocrit Auto (Bld) [Volum e fraction]on 11-15-2023 Hematocrit (Bld) [Volume fraction] 27.6 % Low 42.0-54.0 [facility] Hemoglobin [Mass/volume] in Bloodon 11-15-2023 Hemoglobin (Bld) [Mass/Vol] 8.5 g/dL Low 14.0-18.0 [facility] Laboratory - Chemistry and C hemistry - challengeon 11-15-2023 Albumin [Mass/Vol] 2.4 g/dL Low 3.4-5.0 [facility] ALP [Catalytic activity/Vol] 194 U/L High 46-116 [facility] ALT [Catalytic activity/Vol] 22 U/L 16-63 [facility] AST [Catalytic activity/Vol] 25 U/L 15-37 [facility] Bilirubin [Mass/Vol] 0.9 mg/dL 0.2-1.0 [facility] Calcium [Mass/Vol] 8.9 mg/dL 8.5-10.1 [facility] Chloride [Moles/Vol] 97 mmol/L Low 98-107 [facility] CO2 [Moles/Vol] 26.6 mmol/L 21.0-32.0 [facility] Creatinine [Mass/Vol] 1.63 mg/dL High 0.70-1.30 [facility] GFR/1.73 sq M.predicted MDRD (S/P/Bld) [Vol rate/Area] 53 mL/min/{1.73_m2} Low >=60 [facility] Glucose [Mass/Vol] 226 mg/dL High 74-106 [facility] Lactate [Moles/Vol] 1.4 mmol/L 0.4-2.0 [facility] Potassium [Moles/Vol] 4.1 mmol/L 3.5-5.1 [facility] Protein [Mass/Vol] 7.1 g/dL 6.4-8.2 [facility] Sodium [Moles/Vol] 135 mmol/L Low 136-145 [facility] Urea nitrogen [Mass/Vol] 24.0 mg/dL High 7.0-18.0 [facility] Urea nitrogen/Creatinine [Mass ratio] 14.7 mg/mg [facility] Laboratory - Hematology and Cell countson 11-15-2023 Immature granulocytes/100 WBC (Bld) 0.6 % High 0.0-0.5 [facility] Leukocytes [#/volume] correc jorge for nucleated erythrocytes in Blood by Automated counon 11-15-2023 WBC corrected for nucl RBC Auto (Bld) [#/Vol] 9.5 10 3/uL 4.0-11.0 [facility] Lymphocytes Auto (Bld) [#/Vo l]on 11-15-2023 Lymphocytes (Bld) [#/Vol] 1.3 10 3/uL 1.2-3.8 [facility] Lymphocytes/100 WBC Auto (Bl d)on 11-15-2023 Lymphocytes/100 WBC (Bld) 14.1 % Low 20.5-60.0 [facility] MCH Auto (RBC) [Entitic mass ]on 11-15-2023 MCH (RBC) [Entitic mass] 24.9 pg Low 25.9-34.0 [facility] MCHC Auto (RBC) [Mass/Vol]on 11-15-2023 MCHC (RBC) [Mass/Vol] 30.8 g/dL 29.9-35.2 [facility] MCV Auto (RBC) [Entitic vol] on 11-15-2023 MCV (RBC) [Entitic vol] 80.9 fL 80.0-94.0 [facility] Monocytes Auto (Bld) [#/Vol] on 11-15-2023 Monocytes (Bld) [#/Vol] 1.1 10 3/uL High 0.3-0.8 [facility] Monocytes/100 WBC Auto (Bld) on 11-15-2023 Monocytes/100 WBC (Bld) 11.9 % 1.7-12.0 [facility] Neutrophils Auto (Bld) [#/Vo l]on 11-15-2023 Neutrophils (Bld) [#/Vol] 6.4 10 3/uL 1.4-6.5 [facility] Neutrophils/100 WBC Auto (Bl d)on 11-15-2023 Neutrophils/100 WBC (Bld) 66.7 % 43.0-75.0 [facility] No Panel InformationOrdered By: Fely Marker on 11-15-2023 Blood Culture 2 [facility] Blood Culture 1 [facility] No Panel Informationon 11-14 Eosinophils # (Auto) 0.6 10 3/uL 0.0-0.7 [facility] Immature Granulocyte # (Auto) 0.06 10 3/uL High 0.00-0.03 [facility] Platelet mean volume Auto (B ld) [Entitic vol]on 11-15-2023 Platelet mean volume (Bld) [Entitic vol] 10.8 fL 9.5-13.5 [facility] Platelets Auto (Bld) [#/Vol] on 11-15-2023 Platelets (Bld) [#/Vol] 338 10 3/uL 150-450 [facility] RBC Auto (Bld) [#/Vol]on RBC (Bld) [#/Vol] 3.41 10 6/uL Low 4.70-6.10 [facility] Serum or plasma albumin/glob ulin mass ratioon 11-15-2023 Albumin/Globulin [Mass ratio] 0.5 {ratio} [facility] Serum or plasma anion gap de terminationon 11-15-2023 Anion gap [Moles/Vol] 15.5 mmol/L [facility] BASIC METABOLIC PANLon 11-13 Anion gap [Moles/Vol] 10 mmol/L Normal 5-15 [facility] Comment on above: Performed By: #### C ALLY [facility], , 2776-06 ####[facility] ([id number])[address], [place] [address] Calcium [Mass/Vol] 8.8 mg/dL Normal 8.5-10.5 [facility] Comment on above: Performed By: #### C EKNDALL CANALES, , 2776-06 ####[facility] ([id number])[address], [address], [place] [address] Chloride [Moles/Vol] 99 mmol/L Normal 98-109 [facility] Comment on above: Performed By: #### C KENDALL CANALES, , 2776-06 ####[facility] ([id number])[address], [address] [address] CO2 [Moles/Vol] 26 mmol/L Normal 22-32 [facility] Comment on above: Performed By: #### KENDALL AHUJA, , 2776-06 ####[facility] ([id number])[address], [address], [place] [address] Creatinine [Mass/Vol] 1.61 mg/dL High 0.60-1.30 [facility] Comment on above: Result Comment: METH OD TRACEABLE TO IDMS STANDARD Performed By: #### KENDALL AHUJA, , 2776-06 ####[facility] ([id number])[address] [address] GFR/1.73 sq M.predicted among non-blacks MDRD (S/P/Bld) [Vol rate/Area] 49 mL/min/{1.73_m2} Low >59 [facility] Comment on above: Result Comment: Reported eGFR is based on the CKD-EPI 2020 equation that does not use a race coefficient. Performed By: #### C KENDALL CANALES, , 2776-06 ####[facility] ([id number])[address] [address], [place] [address] Glucose [Mass/Vol] 184 mg/dL High 65-99 [facility] Comment on above: Performed By: #### KENDALL AHUJA, , 2776-06 ####[facility] ([id number])[address] [address] [address] Potassium [Moles/Vol] 4.0 mmol/L Normal 3.5-5.0 [facility] Comment on above: Performed By: #### C ALLY [facility], , 2776-06 ####[facility] ([id number])[address] [address], [place] [address] Sodium [Moles/Vol] 135 mmol/L Normal 134-146 [facility] Comment on above: Performed By: #### C , [facility], , 2776-06 ####[facility] ([id number])[address] [address], [place] [address] Urea nitrogen [Mass/Vol] 23 mg/dL Normal 5-23 [facility] Comment on above: Performed By: #### C ALLY, [facility], , 2776-06 ####[facility] ([id number])[address] [address], [place] [address] COMPLETE BLOOD COUNTon 11-13 Erythrocyte distribution width (RBC) [Ratio] 22.8 % High 11.5-15.0 [facility] Comment on above: Performed By: #### C ALLY, [facility], , 2776-06 ####[facility] ([id number])[address] [address], [place] [address] Hematocrit (Bld) [Volume fraction] 25.1 % Low 39-49 [facility] Comment on above: Performed By: #### C ALLY, [facility], , 2776-06 ####[facility] ([id number])[address] [address], [place] [address] Hemoglobin (Bld) [Mass/Vol] 8.1 g/dL Low 13.0-17.0 [facility] Comment on above: Performed By: #### C ALLY, [facility], , 2776-06 ####[facility] ([id number])[address] [address], [place] [address] MCH (RBC) [Entitic mass] 25.1 pg Low 27-34 [facility] Comment on above: Performed By: #### Snehal CANALES, KENDALL, , 2776-06 ####[facility] ([id number])[address], [address] [address] MCHC (RBC) [Mass/Vol] 32.4 g/dL Normal 32-36 [facility] Comment on above: Performed By: #### Snehal CANALES, KENDALL, , 2776-06 ####[facility] ([id number])[address], [address] [address] MCV (RBC) [Entitic vol] 77 fL Low 80-100 [facility] Comment on above: Performed By: #### Snehal CANALES, KENDALL, , 2776-06 ####[facility] ([id number])[address], [address] [address] Platelet mean volume (Bld) [Entitic vol] 8.8 fL Normal 7-12 [facility] Comment on above: Performed By: #### Snehal CANALES, KENDALL, , 2776-06 ####[facility] ([id number])[address], [address] [address] Platelets (Bld) [#/Vol] 232 10*3/uL Normal 150-450 [facility] Comment on above: Performed By: #### KENDALL AHUJA, , 2776-06 ####[facility] ([id number])[address], [address] [address] RBC COUNT 3.25 X10E12/L Low 4.10-5.70 [facility] Comment on above: Performed By: #### Snehal CANALES, BMP, , 2776-06 ####[facility] ([id number])[address], [address] [address] WBC (Bld) [#/Vol] 8.4 10*3/uL Normal 4.0-11.0 [facility] Comment on above: Performed By: #### C ALLY, KENDALL, , 1 ####[facility] ([id number])[address], [address] [address] Glucose Glucometer (BldC) [M ass/Vol]on 11-14-2023 Glucose [Mass/Vol] 173 mg/dL High 65-99 [facility] Glucose [Mass/Vol] 279 mg/dL High 65-99 [facility] Glucose [Mass/Vol] 249 mg/dL High 65-99 [facility] MAGNESIUMon 11-14-2023 Magnesium [Mass/Vol] 2.1 mg/dL Normal 1.8-2.6 [facility] Comment on above: Performed By: #### 1 9123-9 ####[facility] ([id number])[address], [address], [place] [address] Magnesium [Mass/Vol] mg/dL Critically low 1.8-2.6 [facility] Comment on above: Performed By: #### 1 9123-9 ####[facility] ([id number])[address], [address], [place] [address] Magnesium [Mass/Vol] 1.7 mg/dL Low 1.8-2.6 [facility] Comment on above: Performed By: #### C ALLY, KENDALL, , 2776-06 ####[facility] ([id number])[address], [address], [place] [address] PHOSPHORUSon 11-14-2023 Phosphate [Mass/Vol] 3.6 mg/dL Normal 2.4-4.9 [facility] Comment on above: Performed By: #### C KENDALL CANALES, , 1 ####[facility] ([id number])[address], [place] [address] BASIC METABOLIC PANLon 11-12 Anion gap [Moles/Vol] 10 mmol/L Normal 5-15 [facility] Comment on above: Performed By: #### Snehal CANALES, BMP, , 2776-06 ####[facility] ([id number])[address], [address] [address] Calcium [Mass/Vol] 8.9 mg/dL Normal 8.5-10.5 [facility] Comment on above: Performed By: #### C ALLY, KENDALL, , 2776-06 ####[facility] ([id number])[address], [address] [address] Chloride [Moles/Vol] 98 mmol/L Normal 98-109 [facility] Comment on above: Performed By: #### Snehal CANALES, KENDALL, , 2776-06 ####[facility] ([id number])[address], [address], [place] [address] CO2 [Moles/Vol] 27 mmol/L Normal 22-32 [facility] Comment on above: Performed By: #### Snehal CANALES, KENDALL, , 2776-06 ####[facility] ([id number])[address], [address], [place] [address] Creatinine [Mass/Vol] 1.47 mg/dL High 0.60-1.30 [facility] Comment on above: Result Comment: METH OD TRACEABLE TO IDMS STANDARD Performed By: #### Snehal CANALES, KENDALL, , 2776-06 ####[facility] ([id number])[address], [address] [address] GFR/1.73 sq M.predicted among non-blacks MDRD (S/P/Bld) [Vol rate/Area] 55 mL/min/{1.73_m2} Low >59 [facility] Comment on above: Result Comment: Reported eGFR is based on the CKD-EPI 2020 equation that does not use a race coefficient. Performed By: #### C KENDALL CANALES, , 2776-06 ####[facility] ([id number])[address] [address] [place] [address] Glucose [Mass/Vol] 164 mg/dL High 65-99 [facility] Comment on above: Performed By: #### KENDALL AHUJA, , 2776-06 ####[facility] ([id number])[address] [address], [place] [address] Potassium [Moles/Vol] 3.8 mmol/L Normal 3.5-5.0 [facility] Comment on above: Performed By: #### KENDALL AHUJA, , 2776-06 ####[facility] ([id number])[address] [address] [address] Sodium [Moles/Vol] 135 mmol/L Normal 134-146 [facility] Comment on above: Performed By: #### KENDALL AHUJA, , 2776-06 ####[facility] ([id number])[address] [address] [address] Urea nitrogen [Mass/Vol] 26 mg/dL High 5-23 [facility] Comment on above: Performed By: #### KENDALL AHUJA, , 2776-06 ####[facility] ([id number])[address] [address] [address] COMPLETE BLOOD COUNTon 11-12 Erythrocyte distribution width (RBC) [Ratio] 23.2 % High 11.5-15.0 [facility] Comment on above: Performed By: #### KENDALL AHUJA, , 2776-06 ####[facility] ([id number])[address] [address] [address] Hematocrit (Bld) [Volume fraction] 24.7 % Low 39-49 [facility] Comment on above: Performed By: #### C ALLY, [facility], , 2776-06 ####[facility] ([id number])[address], [address], [place] [address] Hemoglobin (Bld) [Mass/Vol] 8.2 g/dL Low 13.0-17.0 [facility] Comment on above: Performed By: #### C ALLY, [facility], , 2776-06 ####[facility] ([id number])[address], [place] [address] MCH (RBC) [Entitic mass] 25.7 pg Low 27-34 [facility] Comment on above: Performed By: #### Snehal CANALES, [facility], , 2776-06 ####[facility] ([id number])[address], [address], [place] [address] MCHC (RBC) [Mass/Vol] 33.4 g/dL Normal 32-36 [facility] Comment on above: Performed By: #### Snehal CANALES, BMP, , 2776-06 ####[facility] ([id number])[address] [address] MCV (RBC) [Entitic vol] 77 fL Low 80-100 [facility] Comment on above: Performed By: #### Snehal CANALES, BMP, , 2776-06 ####[facility] ([id number])[address] [address], [place] [address] Platelet mean volume (Bld) [Entitic vol] 8.8 fL Normal 7-12 [facility] Comment on above: Performed By: #### Snehal CANALES, BMP, , 2776-06 ####[facility] ([id number])[address], [address] [place] [address] Platelets (Bld) [#/Vol] 207 10*3/uL Normal 150-450 [facility] Comment on above: Performed By: #### KENDALL AHUJA, , 2776-06 ####[facility] ([id number])[address], [address], [place] [address] RBC COUNT 3.21 X10E12/L Low 4.10-5.70 [facility] Comment on above: Performed By: #### KENDALL AHUJA, , 2776-06 ####[facility] ([id number])[address], [address] [place] [address] WBC (Bld) [#/Vol] 8.1 10*3/uL Normal 4.0-11.0 [facility] Comment on above: Performed By: #### KENDALL AHUJA, , 2776-06 ####[facility] ([id number])[address], [address] [place] [address] Glucose Glucometer (dC) [M ass/Vol]on 11-13-2023 Glucose [Mass/Vol] 230 mg/dL High 65-99 [facility] Glucose [Mass/Vol] 225 mg/dL High 65-99 [facility] Glucose [Mass/Vol] 331 mg/dL High 65-99 [facility] Glucose [Mass/Vol] 190 mg/dL High 65-99 [facility] MAGNESIUMon 11-13-2023 Magnesium [Mass/Vol] 2.1 mg/dL Normal 1.8-2.6 [facility] Comment on above: Performed By: #### KENDALL AHUJA, , 2776-06 ####[facility] ([id number])[address], [address] [place] [address] PHOSPHORUSon 11-13-2023 Phosphate [Mass/Vol] 3.8 mg/dL Normal 2.4-4.9 [facility] Comment on above: Performed By: #### C ALLY, BMP, [address]59[address]-0, 2777-1 ####[facility] ([id number])[address], [address], [place] [address] BASIC METABOLIC PANLon 11-11 Anion gap [Moles/Vol] 11 mmol/L Normal 5-15 [facility] Comment on above: Performed By: #### Snehal CANALES, BMP #### [facility] ([id number]) [address], [address] [place] [address] Calcium [Mass/Vol] 9.0 mg/dL Normal 8.5-10.5 [facility] Comment on above: Performed By: #### Snehal CANALES, BMP #### [facility] ([id number]) [address], [address] [place] [address] Chloride [Moles/Vol] 98 mmol/L Normal 98-109 [facility] Comment on above: Performed By: #### Snehal CANALES, BMP #### [facility] ([id number]) [address], [address] [place] [address] CO2 [Moles/Vol] 25 mmol/L Normal 22-32 [facility] Comment on above: Performed By: #### Snehal CANALES, BMP #### [facility] ([id number]) [address], [address] [place] [address] Creatinine [Mass/Vol] 1.40 mg/dL High 0.60-1.30 [facility] Comment on above: Result Comment: METH OD TRACEABLE TO IDMS STANDARD Performed By: #### Snehal CANALES, BMP #### [facility] ([id number]) [address], [address] [place] [address] GFR/1.73 sq M.predicted among non-blacks MDRD (S/P/Bld) [Vol rate/Area] 58 mL/min/{1.73_m2} Low >59 [facility] Comment on above: Result Comment: Reported eGFR is based on the CKD-EPI 2020 equation that does not use a race coefficient. Performed By: #### C ALLY, BMP #### [facility] ([id number]) [address], [address] [place] [address] Glucose [Mass/Vol] 194 mg/dL High 65-99 [facility] Comment on above: Performed By: #### C ALLY, BMP #### [facility] ([id number]) [address], [address] [place] [address] Potassium [Moles/Vol] 4.0 mmol/L Normal 3.5-5.0 [facility] Comment on above: Performed By: #### Snehal CANALES, BMP #### [facility] ([id number]) [address], [address] [place] [address] Sodium [Moles/Vol] 134 mmol/L Normal 134-146 [facility] [place] Comment on above: Performed By: #### Snehal CANALES, BMP #### [facility] ([id number]) [address], [address] [place] [address] Urea nitrogen [Mass/Vol] 23 mg/dL Normal 5-23 [facility] Comment on above: Performed By: #### Snehal CANALES, BMP #### [facility] ([id number]) [address], [address] [place] [address] COMPLETE BLOOD COUNTon 11-11 Erythrocyte distribution width (RBC) [Ratio] 24.1 % High 11.5-15.0 [facility] Comment on above: Performed By: #### Snehal CANALES, BMP #### [facility] ([id number]) [address] [address] [place] [address] Hematocrit (Bld) [Volume fraction] 25.8 % Low 39-49 [facility] Comment on above: Performed By: #### Snehal CANALES, BMP #### [facility] ([id number]) [address], [address] [place] [address] Hemoglobin (Bld) [Mass/Vol] 8.6 g/dL Low 13.0-17.0 [facility] Comment on above: Performed By: #### C ALLY, BMP #### [facility] ([id number]) [address], [address] [place] [address] MCH (RBC) [Entitic mass] 25.7 pg Low 27-34 [facility] Comment on above: Performed By: #### Snehal CANALES, BMP #### [facility] ([id number]) [address], [address] [place] [address] MCHC (RBC) [Mass/Vol] 33.5 g/dL Normal 32-36 [facility] Comment on above: Performed By: #### Snehal CANALES, BMP #### [facility] ([id number]) [address], [address] [place] [address] MCV (RBC) [Entitic vol] 77 fL Low 80-100 [facility] Comment on above: Performed By: #### Snehal CANALES, BMP #### [facility] ([id number]) [address], [address] [place] [address] Platelet mean volume (Bld) [Entitic vol] 9.2 fL Normal 7-12 [facility] Comment on above: Performed By: #### Snehal CANALES, BMP #### [facility] ([id number]) [address], [address] [place] [address] Platelets (Bld) [#/Vol] 185 10*3/uL Normal 150-450 [facility] Comment on above: Performed By: #### Snehal CANALES, BMP #### [facility] ([id number]) [address], [address] [place] [address] RBC COUNT 3.37 X10E12/L Low 4.10-5.70 [facility] Comment on above: Performed By: #### C ALLY, BMP #### [facility] ([id number]) [address], [address] [place] [address] WBC (Bld) [#/Vol] 10.0 10*3/uL Normal 4.0-11.0 [facility] Comment on above: Performed By: #### C ALLY, BMP #### [facility] ([id number]) [address], [address] [place] [address] Glucose Glucometer (BldC) [M ass/Vol]on 11-12-2023 Glucose [Mass/Vol] 230 mg/dL High 65-99 [facility] Glucose [Mass/Vol] 280 mg/dL High 65-99 [facility] Glucose [Mass/Vol] 268 mg/dL High 65-99 [facility] Glucose [Mass/Vol] 220 mg/dL High 65-99 [facility] Glucose [Mass/Vol] 205 mg/dL High 65-99 [facility] MAGNESIUMon 11-12-2023 Magnesium [Mass/Vol] 1.8 mg/dL Normal 1.8-2.6 [facility] Comment on above: Performed By: #### Snehal CANALES, BMP #### [facility] ([id number]) [address], [address] [place] [address] PHOSPHORUSon 11-12-2023 Phosphate [Mass/Vol] 3.8 mg/dL Normal 2.4-4.9 [facility] Comment on above: Performed By: #### Snehal CANALES, BMP #### [facility] ([id number]) [address], [address] [place] [address] BASIC METABOLIC PANLon 11-10 Anion gap [Moles/Vol] 8 mmol/L Normal 5-15 [facility] Comment on above: Performed By: #### Snehal CANALES, BMP #### [facility] ([id number]) [address], [address] [place] [address] Calcium [Mass/Vol] 8.7 mg/dL Normal 8.5-10.5 [facility] Comment on above: Performed By: #### C ALLY, BMP #### [facility] ([id number]) [address], [address] [place] [address] Chloride [Moles/Vol] 99 mmol/L Normal 98-109 [facility] Comment on above: Performed By: #### C ALLY, BMP #### [facility] ([id number]) [address], [address] [place] [address] CO2 [Moles/Vol] 26 mmol/L Normal 22-32 [facility] Comment on above: Performed By: #### C ALLY, BMP #### [facility] ([id number]) [address] [place] [address] Creatinine [Mass/Vol] 1.45 mg/dL High 0.60-1.30 [facility] Comment on above: Result Comment: METH OD TRACEABLE TO IDMS STANDARD Performed By: #### C ALLY, BMP #### [facility] ([id number]) [address] [address] GFR/1.73 sq M.predicted among non-blacks MDRD (S/P/Bld) [Vol rate/Area] 56 mL/min/{1.73_m2} Low >59 [facility] Comment on above: Result Comment: Reported eGFR is based on the CKD-EPI 1 equation that does not use a race coefficient. Performed By: #### C ALLY, BMP #### [facility] ([id number]) [address], [address] [place] [address] Glucose [Mass/Vol] 153 mg/dL High 65-99 [facility] Comment on above: Performed By: #### C ALLY, BMP #### [facility] ([id number]) [address] [place] [address] Potassium [Moles/Vol] 3.9 mmol/L Normal 3.5-5.0 [facility] Comment on above: Performed By: #### C ALLY, BMP #### [facility] ([id number]) [address], [address] [place] [address] Sodium [Moles/Vol] 133 mmol/L Low 134-146 [facility] Comment on above: Performed By: #### C ALLY, BMP #### [facility] ([id number]) [address], [address] [place] [address] Urea nitrogen [Mass/Vol] 27 mg/dL High 5-23 [facility] Comment on above: Performed By: #### C ALLY, BMP #### [facility] ([id number]) [address], [address] [place] [address] COMPLETE BLOOD COUNTon 11-10 Erythrocyte distribution width (RBC) [Ratio] 24.2 % High 11.5-15.0 [facility] Comment on above: Performed By: #### C ALLY, BMP #### [facility] ([id number]) [address], [address] [place] [address] Hematocrit (Bld) [Volume fraction] 25.1 % Low 39-49 [facility] Comment on above: Performed By: #### C ALLY, BMP #### [facility] ([id number]) [address], [address] [place] [address] Hemoglobin (Bld) [Mass/Vol] 8.2 g/dL Low 13.0-17.0 [facility] Comment on above: Performed By: #### C ALLY, BMP #### [facility] ([id number]) [address], [address] [place] [address] MCH (RBC) [Entitic mass] 25.5 pg Low 27-34 [facility] Comment on above: Performed By: #### C ALLY, BMP #### [facility] ([id number]) [address], [address] [place] [address] MCHC (RBC) [Mass/Vol] 32.7 g/dL Normal 32-36 [facility] Comment on above: Performed By: #### C ALLY, BMP #### [facility] ([id number]) [address], [address] [place] [address] MCV (RBC) [Entitic vol] 78 fL Low 80-100 [facility] Comment on above: Performed By: #### C ALLY, BMP #### [facility] ([id number]) [address], [address] [place] [address] Platelet mean volume (Bld) [Entitic vol] 9.0 fL Normal 7-12 [facility] Comment on above: Performed By: #### C ALLY, BMP #### [facility] ([id number]) [address], [address] [place] [address] Platelets (Bld) [#/Vol] 152 10*3/uL Normal 150-450 [facility] Comment on above: Performed By: #### C ALLY, BMP #### [facility] ([id number]) [address], [address] [place] [address] RBC COUNT 3.22 X10E12/L Low 4.10-5.70 [facility] Comment on above: Performed By: #### C ALLY, BMP #### [facility] ([id number]) [address], [address] [place] [address] WBC (Bld) [#/Vol] 9.8 10*3/uL Normal 4.0-11.0 [facility] Comment on above: Performed By: #### C ALLY, BMP #### [facility] ([id number]) [address], [address] [place] [address] Glucose Glucometer (BldC) [M ass/Vol]on 11-11-2023 Glucose [Mass/Vol] 184 mg/dL High 65-99 [facility] Glucose [Mass/Vol] 179 mg/dL High 65-99 [facility] Glucose [Mass/Vol] 222 mg/dL High 65-99 [facility] Glucose [Mass/Vol] 303 mg/dL High 65-99 [facility] MAGNESIUMon 11-11-2023 Magnesium [Mass/Vol] 2.4 mg/dL Normal 1.8-2.6 [facility] Comment on above: Performed By: #### Snehal CANALES, BMP #### [facility] ([id number]) [address], [address] [place] [address] Magnesium [Mass/Vol] 1.9 mg/dL Normal 1.8-2.6 [facility] Comment on above: Performed By: #### Snehal CANALES, BMP #### [facility] ([id number]) [address], [address] [place] [address] PHOSPHORUSon 11-11-2023 Phosphate [Mass/Vol] 3.2 mg/dL Normal 2.4-4.9 [facility] Comment on above: Performed By: #### Snehal CANALES, BMP #### [facility] ([id number]) [address], [address] [place] [address] BASIC METABOLIC PANLon 11-09 Anion gap [Moles/Vol] 6 mmol/L Normal 5-15 [facility] Comment on above: Performed By: #### KENDALL AHUJA, 63103-3, 2777-1 ####[facility] ([id number])[address], [address], [place] [address] Calcium [Mass/Vol] 8.5 mg/dL Normal 8.5-10.5 [facility] Comment on above: Performed By: #### KENDALL AHUJA, , 2777-1 ####[facility] ([id number])[address], [address], [place] [address] Chloride [Moles/Vol] 102 mmol/L Normal 98-109 [facility] Comment on above: Performed By: #### C ALLY, [facility], , 2776-06 ####[facility] ([id number])[address], [address], [place] [address] CO2 [Moles/Vol] 26 mmol/L Normal 22-32 [facility] Comment on above: Performed By: #### C ALLY [facility], , 2776-06 ####[facility] ([id number])[address], [address], [place] [address] Creatinine [Mass/Vol] 1.59 mg/dL High 0.60-1.30 [facility] Comment on above: Result Comment: METH OD TRACEABLE TO IDMS STANDARD Performed By: #### C ALLY [facility], , 2776-06 ####[facility] ([id number])[address] [address] [address] GFR/1.73 sq M.predicted among non-blacks MDRD (S/P/Bld) [Vol rate/Area] 50 mL/min/{1.73_m2} Low >59 [facility] Comment on above: Result Comment: Reported eGFR is based on the CKD-EPI 2020 equation that does not use a race coefficient. Performed By: #### C ALLY [facility], , 2776-06 ####[facility] ([id number])[address], [address], [place] [address] Glucose [Mass/Vol] 145 mg/dL High 65-99 [facility] Comment on above: Performed By: #### KENDALL AHUJA, , 2776-06 ####[facility] ([id number])[address], [address], [place] [address] Potassium [Moles/Vol] 3.9 mmol/L Normal 3.5-5.0 [facility] Comment on above: Performed By: #### C ALLY, [facility], , 2776-06 ####[facility] ([id number])[address], [place] [address] Sodium [Moles/Vol] 134 mmol/L Normal 134-146 [facility] Comment on above: Performed By: #### Snehal CANALES, [facility], , 2776-06 ####[facility] ([id number])[address], [place] [address] Urea nitrogen [Mass/Vol] 23 mg/dL Normal 5-23 [facility] Comment on above: Performed By: #### Snehal CANALES, [facility], , 2776-06 ####[facility] ([id number])[address], [place] [address] COMPLETE BLOOD COUNTon 11-09 Erythrocyte distribution width (RBC) [Ratio] 24.9 % High 11.5-15.0 [facility] Comment on above: Performed By: #### Snehal CANALES, [facility], , 2776-06 ####[facility] ([id number])[address] [address], [place] [address] Hematocrit (Bld) [Volume fraction] 24.5 % Low 39-49 [facility] Comment on above: Performed By: #### Snehal CANALES, BMP, , 2776-06 ####[facility] ([id number])[address] [address], [place] [address] Hemoglobin (Bld) [Mass/Vol] 7.9 g/dL Low 13.0-17.0 [facility] Comment on above: Performed By: #### Snehal CANALES, BMP, , 2776-06 ####[facility] ([id number])[address], [address] [address] MCH (RBC) [Entitic mass] 25.4 pg Low 27-34 [facility] Comment on above: Performed By: #### C ALLY, BMP, , 2776-06 ####[facility] ([id number])[address], [address] [address] MCHC (RBC) [Mass/Vol] 32.4 g/dL Normal 32-36 [facility] Comment on above: Performed By: #### C ALLY, BMP, , 2776-06 ####[facility] ([id number])[address], [address] [address] MCV (RBC) [Entitic vol] 78 fL Low 80-100 [facility] Comment on above: Performed By: #### Snehal CANALES, KENDALL, , 2776-06 ####[facility] ([id number])[address], [address] [address] Platelet mean volume (Bld) [Entitic vol] 9.1 fL Normal 7-12 [facility] Comment on above: Performed By: #### Snehal CANALES, BMP, , 2776-06 ####[facility] ([id number])[address], [address] [address] Platelets (Bld) [#/Vol] 142 10*3/uL Low 150-450 [facility] Comment on above: Performed By: #### Snehal CANALES, BMP, , 2776-06 ####[facility] ([id number])[address], [address] [address] RBC COUNT 3.14 X10E12/L Low 4.10-5.70 [facility] Comment on above: Performed By: #### Snehal CANALES BMP, , 2776-06 ####[facility] ([id number])[address], [place] [address] WBC (Bld) [#/Vol] 9.7 10*3/uL Normal 4.0-11.0 [facility] Comment on above: Performed By: #### KENDALL AHUJA, , 2776-06 ####[facility] ([id number])[address], [place] [address] Glucose Glucometer (BldC) [M ass/Vol]on 11-10-2023 Glucose [Mass/Vol] 168 mg/dL High 65-99 [facility] Glucose [Mass/Vol] 245 mg/dL High 65-99 [facility] Glucose [Mass/Vol] 155 mg/dL High 65-99 [facility] Glucose [Mass/Vol] 153 mg/dL High 65-99 [facility] MAGNESIUMon 11-10-2023 Magnesium [Mass/Vol] 2.2 mg/dL Normal 1.8-2.6 [facility] Comment on above: Performed By: #### Snehal CANALES BMP #### [facility] ([id number]) [address], [address] [place] [address] Magnesium [Mass/Vol] 1.8 mg/dL Normal 1.8-2.6 [facility] Comment on above: Performed By: #### KENDALL AHUJA, , 2776-06 ####[facility] ([id number])[address], [address], [place] [address] PHOSPHORUSon 11-10-2023 Phosphate [Mass/Vol] 3.1 mg/dL Normal 2.4-4.9 [facility] Comment on above: Performed By: #### KENDALL AHUJA, 2776-06 ####[facility] ([id number])[address], [place] [address] BASIC METABOLIC PANLon 11-08 Anion gap [Moles/Vol] 9 mmol/L Normal 5-15 [facility] Comment on above: Performed By: #### C BC, 2639-3, BMP, 2156-6, , 2776-1 ####[facility] ([id number])[address], [address] [address] Calcium [Mass/Vol] 8.4 mg/dL Low 8.5-10.5 [facility] Comment on above: Performed By: #### C BC, 2639-3, BMP, 2156-6, , 2776-1 ####[facility] ([id number])[address], [address], [place] [address] Chloride [Moles/Vol] 104 mmol/L Normal 98-109 [facility] Comment on above: Performed By: #### Snehal CANALES, 2639-3, BMP, 2156-11, , 1 ####[facility] ([id number])[address], [address], [place] [address] CO2 [Moles/Vol] 25 mmol/L Normal 22-32 [facility] Comment on above: Performed By: #### Snehal BC, 2639-3, BMP, 2156-11, , 1 ####[facility] ([id number])[address], [address], [place] [address] Creatinine [Mass/Vol] 1.35 mg/dL High 0.60-1.30 [facility] Comment on above: Result Comment: METH OD TRACEABLE TO IDMS STANDARD Performed By: #### Snehal BC, 2639-3, BMP, 2156-11, , 2776-1 ####[facility] ([id number])[address], [address], [place] [address] GFR/1.73 sq M.predicted among non-blacks MDRD (S/P/Bld) [Vol rate/Area] 61 mL/min/{1.73_m2} Normal >59 [facility] Comment on above: Result Comment: Reported eGFR is based on the CKD-EPI 2020 equation that does not use a race coefficient. Performed By: #### C BC, 2639-3, BMP, 2156-6, 04806-8, 2776- ####[facility] ([id number])[address], [address], [place] [address] Glucose [Mass/Vol] 217 mg/dL High 65-99 [facility] Comment on above: Performed By: #### C ALLY, 2639-3, BMP, 2156-6, , 2776- ####[facility] ([id number])[address] [address] [place] [address] Potassium [Moles/Vol] 4.2 mmol/L Normal 3.5-5.0 [facility] Comment on above: Performed By: #### Snehal CANALES, 2639-3, BMP, 2156-, , 2776-1 ####[facility] ([id number])[address] [address] [place] [address] Sodium [Moles/Vol] 138 mmol/L Normal 134-146 [facility] Comment on above: Performed By: #### Snehal CANALES, 2639-3, BMP, 2156-6, , 2776- ####[facility] ([id number])[address] [address], [place] [address] Urea nitrogen [Mass/Vol] 23 mg/dL Normal 5-23 [facility] Comment on above: Performed By: #### C BC, 2639-3, BMP, 2156-6, , 2776-1 ####[facility] ([id number])[address], [address], [place] [address] CK [Catalytic activity/Vol]o n 11-09-2023 CPK 44 U/L Normal 24-195 [facility] Comment on above: Performed By: #### 2 157-6, 9-3 ####[facility] ([id number])[address], [address] [place] [address] CPK 30 U/L Normal 24-195 [facility] Comment on above: Performed By: #### C BC, 2639-3, BMP, 2156-11, , 1 ####[facility] ([id number])[address], [address] [place] [address] COMPLETE BLOOD COUNTon 11-08 Erythrocyte distribution width (RBC) [Ratio] 24.9 % High 11.5-15.0 [facility] Comment on above: Performed By: #### C BC, 2639-3, BMP, 2156-11, , 2776-06 ####[facility] ([id number])[address] [address] [place] [address] Hematocrit (Bld) [Volume fraction] 26.8 % Low 39-49 [facility] Comment on above: Performed By: #### C BC, 2639-3, BMP, 2156-11, , 1 ####[facility] ([id number])[address] [address] [place] [address] Hemoglobin (Bld) [Mass/Vol] 8.7 g/dL Low 13.0-17.0 [facility] Comment on above: Performed By: #### C BC, 2639-3, BMP, 2156-11, , 2776- ####[facility] ([id number])[address] [address] MCH (RBC) [Entitic mass] 24.8 pg Low 27-34 [facility] Comment on above: Performed By: #### C BC, 2639-3, BMP, 2156-11, , 2776-06 ####[facility] ([id number])[address] [address] [place] [address] MCHC (RBC) [Mass/Vol] 32.6 g/dL Normal 32-36 [facility] Comment on above: Performed By: #### Snehal CANALES, 2639-3, BMP, 2156-, , 2776- ####[facility] ([id number])[address], [address] [place] [address] MCV (RBC) [Entitic vol] 76 fL Low 80-100 [facility] Comment on above: Performed By: #### Snehal CANALES, 2639-3, BMP, 2156-11, , 2776-06 ####[facility] ([id number])[address] [address] [place] [address] Platelet mean volume (Bld) [Entitic vol] 9.3 fL Normal 7-12 [facility] Comment on above: Performed By: #### Snehal CANALES, 2639-3, BMP, 2156-11, , 2776-06 ####[facility] ([id number])[address] [address] Platelets (Bld) [#/Vol] 184 10*3/uL Normal 150-450 [facility] Comment on above: Performed By: #### Snehal CANALES, 2639-3, BMP, 2156-11, , 2776-06 ####[facility] ([id number])[address] [address] RBC COUNT 3.53 X10E12/L Low 4.10-5.70 [facility] Comment on above: Performed By: #### Snehal CANLAES, 2639-3, BMP, 2156-, , 2776- ####[facility] ([id number])[address], [address] [place] [address] WBC (Bld) [#/Vol] 11.0 10*3/uL Normal 4.0-11.0 [facility] Comment on above: Performed By: #### C ALLY, 2639-3, BMP, 2156-11, , 2776-06 ####[facility] ([id number])[address] [place] [address] Glucose Glucometer (BldC) [M ass/Vol]on 11-09-2023 Glucose [Mass/Vol] 243 mg/dL High 65-99 [facility] Glucose [Mass/Vol] 184 mg/dL High 65-99 [facility] Glucose [Mass/Vol] 199 mg/dL High 65-99 [facility] Glucose [Mass/Vol] 218 mg/dL High 65-99 [facility] Heparin unfractionated Chrom ogenic method Qn (PPP)on 11-09-2023 ANTI XA UFH 0.15 IU/mL Low 0.30-0.70 [facility] Comment on above: Result Comment: Opti mal time for testing is 6 hrs post dosage This test is specific for monitoring patients on UFH, and is not recommended for use with other Anti-Xa medications. Performed By: #### 3 274-8 ####[facility] ([id number])[address] [address] [place] [address] MAGNESIUMon 11-09-2023 Magnesium [Mass/Vol] 2.2 mg/dL Normal 1.8-2.6 [facility] Comment on above: Performed By: #### C BC, 2639-3, BMP, 2156-11, , 2776-06 ####[facility] ([id number])[address], [address] [place] [address] Myoglobin [Mass/Vol]on 11-08 SERUM MYOGLOBIN 97.7 ng/mL Normal 17.4-105.7 [facility] Comment on above: Performed By: #### 2 157-6, 2639-3 ####[facility] ([id number])[address], [place] [address] SERUM MYOGLOBIN 51.7 ng/mL Normal 17.4-105.7 [facility] Comment on above: Performed By: #### C BC, 2639-3, BMP, 2156-, 25183-4, 2776-1 ####[facility] ([id number])[address], [address], [place] [address] PHOSPHORUSon 11-09-2023 Phosphate [Mass/Vol] 4.4 mg/dL Normal 2.4-4.9 [facility] Comment on above: Performed By: #### C BC, 2639-3, BMP, 2156-, , 2777-1 ####[facility] ([id number])[address], [address], [place] [address] BASIC METABOLIC PANLon 11-07 Anion gap [Moles/Vol] 9 mmol/L Normal 5-15 [facility] Comment on above: Performed By: #### P INR #### [facility] ([id number]) [address], [address] [place] [address] Calcium [Mass/Vol] 8.4 mg/dL Low 8.5-10.5 [facility] Comment on above: Performed By: #### P INR #### [facility] ([id number]) [address], [address] [place] [address] Chloride [Moles/Vol] 106 mmol/L Normal 98-109 [facility] Comment on above: Performed By: #### P INR #### [facility] ([id number]) [address], [address] [place] [address] CO2 [Moles/Vol] 24 mmol/L Normal 22-32 [facility] Comment on above: Performed By: #### P INR #### [facility] ([id number]) [address], [address] [place] [address] Creatinine [Mass/Vol] 1.30 mg/dL Normal 0.60-1.30 [facility] Comment on above: Result Comment: METH OD TRACEABLE TO IDMS STANDARD Performed By: #### P INR #### [facility] ([id number]) [address], [address] [place] [address] GFR/1.73 sq M.predicted among non-blacks MDRD (S/P/Bld) [Vol rate/Area] 64 mL/min/{1.73_m2} Normal >59 [facility] Comment on above: Result Comment: Reported eGFR is based on the CKD-EPI 2020 equation that does not use a race coefficient. Performed By: #### P INR #### [facility] ([id number]) [address], [address] [place] [address] Glucose [Mass/Vol] 163 mg/dL High 65-99 [facility] Comment on above: Performed By: #### P INR #### [facility] ([id number]) [address], [address] [place] [address] Potassium [Moles/Vol] 4.1 mmol/L Normal 3.5-5.0 [facility] Comment on above: Performed By: #### P INR #### [facility] ([id number]) [address], [address] [place] [address] Sodium [Moles/Vol] 139 mmol/L Normal 134-146 [facility] [facility] Comment on above: Performed By: #### P INR #### [facility] ([id number]) [address], [address] [place] [address] Urea nitrogen [Mass/Vol] 23 mg/dL Normal 5-23 [facility] Comment on above: Performed By: #### P INR #### [facility] ([id number]) [address], [address] [place] [address] Anion gap [Moles/Vol] 9 mmol/L Normal 5-15 [facility] Comment on above: Performed By: #### C BC, BMP #### [facility] ([id number]) [address], [address] [place] [address] Calcium [Mass/Vol] 8.8 mg/dL Normal 8.5-10.5 [facility] Comment on above: Performed By: #### C ALLY, BMP #### [facility] ([id number]) [address], [address] [place] [address] Chloride [Moles/Vol] 104 mmol/L Normal 98-109 [facility] Comment on above: Performed By: #### C BC, BMP #### [facility] ([id number]) [address], [address] [place] [address] CO2 [Moles/Vol] 25 mmol/L Normal 22-32 [facility] Comment on above: Performed By: #### C ALLY, BMP #### [facility] ([id number]) [address], [address] [place] [address] Creatinine [Mass/Vol] 1.70 mg/dL High 0.60-1.30 [facility] Comment on above: Result Comment: METH OD TRACEABLE TO IDMS STANDARD Performed By: #### C BC, BMP #### [facility] ([id number]) [address], [address] [place] [address] GFR/1.73 sq M.predicted among non-blacks MDRD (S/P/Bld) [Vol rate/Area] 46 mL/min/{1.73_m2} Low >59 [facility] Comment on above: Result Comment: Reported eGFR is based on the CKD-EPI 2020 equation that does not use a race coefficient. Performed By: #### C ALLY, BMP #### [facility] ([id number]) [address], [address] [place] [address] Glucose [Mass/Vol] 111 mg/dL High 65-99 [facility] Comment on above: Performed By: #### C BC, BMP #### [facility] ([id number]) [address], [address] [place] [address] Potassium [Moles/Vol] 3.8 mmol/L Normal 3.5-5.0 [facility] Comment on above: Performed By: #### C BC, BMP #### [facility] ([id number]) [address], [address] [place] [address] Sodium [Moles/Vol] 138 mmol/L Normal 134-146 [facility] Comment on above: Performed By: #### C BC, BMP #### [facility] ([id number]) [address], [address] [place] [address] Urea nitrogen [Mass/Vol] 28 mg/dL High 5-23 [facility] Comment on above: Performed By: #### C BC, BMP #### [facility] ([id number]) [address], [address] [place] [address] CK [Catalytic activity/Vol]o n 11-08-2023 CPK 26 U/L Normal 24-195 [facility] Comment on above: Performed By: #### P INR #### [facility] ([id number]) [address], [address] [place] [address] COMPLETE BLOOD COUNTon 11-07 Erythrocyte distribution width (RBC) [Ratio] 24.8 % High 11.5-15.0 [facility] Comment on above: Performed By: #### P INR #### [facility] ([id number]) [address], [address] [place] [address] Hematocrit (Bld) [Volume fraction] 29.3 % Low 39-49 [facility] Comment on above: Performed By: #### P INR #### [facility] ([id number]) [address], [address] [place] [address] Hemoglobin (Bld) [Mass/Vol] 9.6 g/dL Low 13.0-17.0 [facility] Comment on above: Performed By: #### P INR #### [facility] ([id number]) [address], [address] [place] [address] MCH (RBC) [Entitic mass] 24.9 pg Low 27-34 [facility] Comment on above: Performed By: #### P INR #### [facility] ([id number]) [address], [address] [place] [address] MCHC (RBC) [Mass/Vol] 32.7 g/dL Normal 32-36 [facility] Comment on above: Performed By: #### P INR #### [facility] ([id number]) [address], [address] [place] [address] MCV (RBC) [Entitic vol] 76 fL Low 80-100 [facility] Comment on above: Performed By: #### P INR #### [facility] ([id number]) [address], [address] [place] [address] Platelet mean volume (Bld) [Entitic vol] 8.7 fL Normal 7-12 [facility] Comment on above: Performed By: #### P INR #### [facility] ([id number]) [address], [address] [place] [address] Platelets (Bld) [#/Vol] 169 10*3/uL Normal 150-450 [facility] Comment on above: Performed By: #### P INR #### [facility] ([id number]) [address], [address] [place] [address] RBC COUNT 3.85 X10E12/L Low 4.10-5.70 [facility] Comment on above: Performed By: #### P INR #### [facility] ([id number]) [address], [address] [place] [address] WBC (Bld) [#/Vol] 13.5 10*3/uL High 4.0-11.0 [facility] Comment on above: Performed By: #### P INR #### [facility] ([id number]) [address], [address] [place] [address] Erythrocyte distribution width (RBC) [Ratio] 25.2 % High 11.5-15.0 [facility] Comment on above: Performed By: #### C BC, BMP #### [facility] ([id number]) [address], [address] [place] [address] Hematocrit (Bld) [Volume fraction] 33.0 % Low 39-49 [facility] Comment on above: Performed By: #### C BC, BMP #### [facility] ([id number]) [address], [address] [place] [address] Hemoglobin (Bld) [Mass/Vol] 10.8 g/dL Low 13.0-17.0 [facility] Comment on above: Performed By: #### C BC, BMP #### [facility] ([id number]) [address], [address] [place] [address] MCH (RBC) [Entitic mass] 25.0 pg Low 27-34 [facility] Comment on above: Performed By: #### C BC, BMP #### [facility] ([id number]) [address], [address] [place] [address] MCHC (RBC) [Mass/Vol] 32.8 g/dL Normal 32-36 [facility] Comment on above: Performed By: #### C BC, BMP #### [facility] ([id number]) [address], [address] [place] [address] MCV (RBC) [Entitic vol] 76 fL Low 80-100 [facility] Comment on above: Performed By: #### Snehal CANALES, BMP #### [facility] ([id number]) [address], [address] [place] [address] Platelet mean volume (Bld) [Entitic vol] 8.8 fL Normal 7-12 [facility] Comment on above: Performed By: #### Snehal CANALES, BMP #### [facility] ([id number]) [address], [address] [place] [address] Platelets (Bld) [#/Vol] 172 10*3/uL Normal 150-450 [facility] Comment on above: Performed By: #### Snehal CANALES, BMP #### [facility] ([id number]) [address], [address] [place] [address] RBC COUNT 4.33 X10E12/L Normal 4.10-5.70 [facility] Comment on above: Performed By: #### Snehal CANALES, BMP #### [facility] ([id number]) [address], [address] [place] [address] WBC (Bld) [#/Vol] 9.3 10*3/uL Normal 4.0-11.0 [facility] Comment on above: Performed By: #### Snehal CANALES, BMP #### [facility] ([id number]) [address], [address] [place] [address] Glucose Glucometer (dC) [M ass/Vol]on 11-08-2023 Glucose [Mass/Vol] 162 mg/dL High 65-99 [facility] Glucose [Mass/Vol] 96 mg/dL Normal 65-99 [facility] Glucose [Mass/Vol] 142 mg/dL High 65-99 [facility] Glucose [Mass/Vol] 114 mg/dL High 65-99 [facility] Lactate (P ekaterina) [Moles/Vol]o n 11-08-2023 LACTATE W/REFLEX 1.0 mmol/L Normal 0.4-2.0 [facility] Comment on above: Result Comment: Result did not trigger repeat Lactate, re-order if needed. Performed By: #### P INR #### [facility] ([id number]) [address], [address] [place] [address] MAGNESIUMon 11-08-2023 Magnesium [Mass/Vol] 1.7 mg/dL Low 1.8-2.6 [facility] Comment on above: Performed By: #### P INR #### [facility] ([id number]) [address], [address] [place] [address] Myoglobin [Mass/Vol]on 11-07 SERUM MYOGLOBIN 33.1 ng/mL Normal 17.4-105.7 [facility] Comment on above: Performed By: #### P INR #### [facility] ([id number]) [address], [address] [place] [address] PHOSPHORUSon 11-08-2023 Phosphate [Mass/Vol] 4.0 mg/dL Normal 2.4-4.9 [facility] Comment on above: Performed By: #### P INR #### [facility] ([id number]) [address], [address] [place] [address] PROTIME AND INRon 11-08-2023 INR Coag (PPP) [Relative time] 1.3 {INR} High 0.8-1.1 [facility] Comment on above: Performed By: #### P INR #### [facility] ([id number]) [address], [address] [place] [address] PT Coag (PPP) [Time] 14.7 s High 9.8-13.2 [facility] Comment on above: Performed By: #### P INR #### [facility] ([id number]) [address] [place] [address] RAPID CARDIACon 11-08-2023 COURTNEY'S TEST Normal [facility] Comment on above: Performed By: #### A FAB5 #### [facility] ([id number]) [address] [place] [address] Base excess Calc (Bld) [Moles/Vol] 0.1 mmol/L Normal 0.0-2.0 [facility] Comment on above: Performed By: #### A FAB5 #### [facility] ([id number]) [address] [place] [address] Body temperature 98.6 [degF] Normal 37.0 [facility] Comment on above: Performed By: #### A FAB5 #### [facility] ([id number]) [address] [place] [address] Glucose [Mass/Vol] 117 mg/dL High 65-99 [facility] Comment on above: Performed By: #### A FAB5 #### [facility] ([id number]) [address] [place] [address] HCO3 (Bld) [Moles/Vol] 24.8 mmol/L Normal 22-26 [facility] Comment on above: Performed By: #### A FAB5 #### [facility] ([id number]) [address] [place] [address] Hematocrit (Bld) [Volume fraction] 31 % Low 39-49 [facility] Comment on above: Performed By: #### A FAB5 #### [facility] ([id number]) [address] [place] [address] Hemoglobin (Bld) [Mass/Vol] 10.2 g/dL Low 13.0-17.0 [facility] Comment on above: Performed By: #### A FAB5 #### [facility] ([id number]) [address] [place] [address] INSP. O2 CONC. 100 % Normal [facility] Comment on above: Performed By: #### A FAB5 #### [facility] ([id number]) [address] [place] [address] IONIZED CALCIUM 4.8 mg/dL Normal 4.5-5.3 [facility] Comment on above: Performed By: #### A FAB5 #### [facility] ([id number]) [address] [place] [address] Oxygen (Bld) [Partial pressure] 167 mm[Hg] High 80-100 [facility] Comment on above: Performed By: #### A FAB5 #### [facility] ([id number]) [address] [place] [address] Oxygen saturation in Blood 100.8 % Normal >90 [facility] Comment on above: Performed By: #### A FAB5 #### [facility] ([id number]) [address] [place] [address] PCO2 39.7 MMHG Normal 35-45 [facility] Comment on above: Performed By: #### A FAB5 #### [facility] ([id number]) [address] [place] [address] pH (Bld) 7.404 [pH] Normal 7.350-7.45 0 [facility] Comment on above: Performed By: #### A FAB5 #### [facility] ([id number]) [address] [place] [address] Potassium [Moles/Vol] 3.8 mmol/L Normal 3.5-5.0 [facility] Comment on above: Performed By: #### A FAB5 #### [facility] ([id number]) [address] [place] [address] SAMPLE SITE KECIA Normal [facility] Comment on above: Performed By: #### A FAB5 #### [facility] ([id number]) [address] [place] [address] SAMPLE TYPE Arterial Normal [facility] Comment on above: Performed By: #### A FAB5 #### [facility] ([id number]) [address] [place] [address] RAPID CARDIAC W/ NAon 2023 COURTNEY'S TEST Normal [facility] Comment on above: Performed By: #### P INR #### [facility] ([id number]) [address], [address] [place] [address] Base excess Calc (Bld) [Moles/Vol] 0.2 mmol/L Normal 0.0-2.0 [facility] Comment on above: Performed By: #### P INR #### [facility] ([id number]) [address], [address] [place] [address] Body temperature 98.6 [degF] Normal 37.0 [facility] Comment on above: Performed By: #### P INR #### [facility] ([id number]) [address], [address] [place] [address] Glucose [Mass/Vol] 125 mg/dL High 65-99 [facility] Comment on above: Performed By: #### P INR #### [facility] ([id number]) [address], [address] [place] [address] HCO3 (Bld) [Moles/Vol] 25.3 mmol/L Normal 22-26 [facility] Comment on above: Performed By: #### P INR #### [facility] ([id number]) [address], [address] [place] [address] Hematocrit (Bld) [Volume fraction] 31 % Low 39-49 [facility] Comment on above: Performed By: #### P INR #### [facility] ([id number]) [address], [address] [place] [address] Hemoglobin (Bld) [Mass/Vol] 10.0 g/dL Low 13.0-17.0 [facility] Comment on above: Performed By: #### P INR #### [facility] ([id number]) [address], [address] [place] [address] INSP. O2 CONC. 50 % Normal [facility] Comment on above: Performed By: #### P INR #### [facility] ([id number]) [address], [address] [place] [address] IONIZED CALCIUM 4.7 mg/dL Normal 4.5-5.3 [facility] Comment on above: Performed By: #### P INR #### [facility] ([id number]) [address], [address] [place] [address] Oxygen (Bld) [Partial pressure] 131 mm[Hg] High 80-100 [facility] Comment on above: Performed By: #### P INR #### [facility] ([id number]) [address] [place] [address] Oxygen saturation in Blood 99.9 % Normal >90 [facility] Comment on above: Performed By: #### P INR #### [facility] ([id number]) [address], [address] [place] [address] PCO2 42.7 MMHG Normal 35-45 [facility] Comment on above: Performed By: #### P INR #### [facility] ([id number]) [address], [address] [place] [address] pH (Bld) 7.381 [pH] Normal 7.350-7.45 0 [facility] Comment on above: Performed By: #### P INR #### [facility] ([id number]) [address], [address] [place] [address] Potassium [Moles/Vol] 3.7 mmol/L Normal 3.5-5.0 [facility] Comment on above: Performed By: #### P INR #### [facility] ([id number]) [address], [address] [place] [address] SAMPLE SITE KECIA Normal [facility] Comment on above: Performed By: #### P INR #### [facility] ([id number]) [address], [address] [place] [address] SAMPLE TYPE Arterial Normal [facility] Comment on above: Performed By: #### P INR #### [facility] ([id number]) [address], [address] [place] [address] Sodium [Moles/Vol] 139 mmol/L Normal 134-146 [facility] Comment on above: Performed By: #### P INR #### [facility] ([id number]) [address] [place] [address] aPTT Coag (PPP) [Time]on aPTT Coag (Bld) [Time] 30 s Normal 26-37 [facility] Comment on above: Performed By: #### P INR #### [facility] ([id number]) [address], [address] [place] [address] Glucose Glucometer (BldC) [M ass/Vol]on 11-07-2023 Glucose [Mass/Vol] 150 mg/dL High 65-99 [facility] Glucose [Mass/Vol] 58 mg/dL Low 65-99 [facility] POC [id number] 11-07-2023 Chloride [Moles/Vol] 98 mmol/L Normal 98-109 [facility] Comment on above: Performed By: #### I ELGBC #### [facility] ([id number]) [address] [place] [address] CO2 [Moles/Vol] 31 mmol/L Normal 22-32 [facility] Comment on above: Performed By: #### I ELGBC #### [facility] ([id number]) [address] [place] [address] Creatinine [Mass/Vol] 1.9 mg/dL High 0.7-1.2 [facility] Comment on above: Result Comment: METH OD TRACEABLE TO IDMS STANDARD Performed By: #### I [facility] #### [facility] ([id number]) [address] [place] [address] GFR/1.73 sq M.predicted among non-blacks MDRD (S/P/Bld) [Vol rate/Area] 40 mL/min/{1.73_m2} Low >59 [facility] Comment on above: Result Comment: Reported eGFR is based on the CKD-EPI 2020 equation that does not use a race coefficient. Performed By: #### I ELGB #### [facility] ([id number]) [address] [place] [address] Glucose [Mass/Vol] 72 mg/dL Normal 65-99 [facility] Comment on above: Performed By: #### I ELGB #### [facility] ([id number]) [address] [place] [address] Potassium [Moles/Vol] 3.6 mmol/L Normal 3.5-5.0 [facility] Comment on above: Performed By: #### I ELGBC #### [facility] ([id number]) [address] [place] [address] Sodium [Moles/Vol] 139 mmol/L Normal 134-146 [facility] Comment on above: Performed By: #### I ELGBC #### [facility] ([id number]) [address] [place] [address] Urea nitrogen [Mass/Vol] 31 mg/dL High 6-23 [facility] Comment on above: Performed By: #### I ELGB #### [facility] ([id number]) [address] [place] [address] PROTIME AND INRon 11-07-2023 INR Coag (PPP) [Relative time] 1.3 {INR} High 0.8-1.1 [facility] Comment on above: Performed By: #### P INR #### [facility] ([id number]) [address], [address] [place] [address] PT Coag (PPP) [Time] 14.5 s High 9.8-13.2 [facility] Comment on above: Performed By: #### P INR #### [facility] ([id number]) [address], [address] [place] [address] ECG 12 Leadon 10-24-2023 [facility] Work Phone: Consent for Treatmenton 10-04 Consent for Treatment [id number]#1.00TIFF Normal [facility] Office/Cl inic Noteon [...] 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 Normal [facility] Comment on above: Result Comment: Elec [...] MD Transcribed by: HASEEB Technologist: TARAN Chatman [facility] CHEMISTRYOrdered By: SYSTEM SYSTEM on 10-19-2023 Creatinine [...] 370 Contrast amount in ml's: 150 Normal [facility] Consent for Treatmenton 10-03 Consent for Treatment [id number]#1.00TIFF Normal [facility] Creatinineon 10-19-2023 Creatinine [Mass/Vol] 1.6 mg/dL High 0.5-1.3 [facility] Comment on above: Performed By: #### [id number] #### [facility] [address] [place] [address] Physician Orderon 10-19-2023 Physician Order [id number]#1.00TIFF Normal [facility] eGFRon 10-19-2023 eGFR 50 mL/min/1.73 m2 Low >=59 [facility] Comment on above: Order Comment: Order added by Discern Expert. Performed By: #### 1 [id number] #### [facility] [address] [place] [address] Outside Progress Noteon 10-03 Outside Progress Note [id number]#1.00TIFF Normal [facility] Physician Orderon 10-18-2023 Physician Order [id number]#1.00TIF F Normal [facility] Physician Order [id number]#1.00TIFF Normal [facility] Basophils Auto (Bld) [#/Vol] on 10-06-2023 Basophils (Bld) [#/Vol] 0.0 10 3/uL 0.0-0.1 [facility] Basophils/100 WBC Auto (Bld) on 10-06-2023 Basophils/100 WBC (Bld) 0.3 % 0.2-2.0 [facility] Eosinophils/100 WBC Auto (Bl d)on 10-06-2023 Eosinophils/100 WBC (Bld) 1.9 % 0.9-7.0 [facility] Erythrocyte distribution wid th Auto (RBC) [Ratio]on 10-06-2023 Erythrocyte distribution width (RBC) [Ratio] 19.9 % High 11.0-15.0 [facility] Estimated glomerular filtrat ion rate (GFR) non- Americanon 10-06-2023 GFR/1.73 sq M.predicted among non-blacks MDRD (S/P/Bld) [Vol rate/Area] 42 mL/min/{1.73_m2} Low >=60 [facility] Globulin Calc (S) [Mass/Vol] on 10-06-2023 Globulin (S) [Mass/Vol] 4.3 g/dL [facility] Hematocrit Auto (Bld) [Volum e fraction]on 10-06-2023 Hematocrit (Bld) [Volume fraction] 28.3 % Low 42.0-54.0 [facility] Hemoglobin [Mass/volume] in Bloodon 10-06-2023 Hemoglobin (Bld) [Mass/Vol] 8.4 g/dL Low 14.0-18.0 [facility] Laboratory - Chemistry and C hemistry - challengeon 10-06-2023 Albumin [Mass/Vol] 2.1 g/dL Low 3.4-5.0 [facility] ALP [Catalytic activity/Vol] 133 U/L High 46-116 [facility] ALT [Catalytic activity/Vol] 18 U/L 16-63 [facility] AST [Catalytic activity/Vol] 20 U/L 15-37 [facility] Bilirubin [Mass/Vol] 0.3 mg/dL 0.2-1.0 [facility] Calcium [Mass/Vol] 9.4 mg/dL 8.5-10.1 [facility] Chloride [Moles/Vol] 103 mmol/L 98-107 [facility] CO2 [Moles/Vol] 23.7 mmol/L 21.0-32.0 [facility] Creatinine [Mass/Vol] 1.67 mg/dL High 0.70-1.30 [facility] GFR/1.73 sq M.predicted MDRD (S/P/Bld) [Vol rate/Area] 52 mL/min/{1.73_m2} Low >=60 [facility] Glucose [Mass/Vol] 91 mg/dL 74-106 [facility] Magnesium [Mass/Vol] 1.6 mg/dL Low 1.8-2.4 [facility] Potassium [Moles/Vol] 4.8 mmol/L 3.5-5.1 [facility] Protein [Mass/Vol] 6.4 g/dL 6.4-8.2 [facility] Sodium [Moles/Vol] 136 mmol/L 136-145 [facility] Urea nitrogen [Mass/Vol] 29.0 mg/dL High 7.0-18.0 [facility] Urea nitrogen/Creatinine [Mass ratio] 17.4 mg/mg [facility] Laboratory - Hematology and Cell countson 10-06-2023 ESR (Bld) [Velocity] mm/h High <=20 [facility] Immature granulocytes/100 WBC (Bld) 1.5 % High 0.0-0.5 [facility] Leukocytes [#/volume] correc jorge for nucleated erythrocytes in Blood by Automated counon 10-06-2023 WBC corrected for nucl RBC Auto (Bld) [#/Vol] 11.6 10 3/uL High 4.0-11.0 [facility] Lymphocytes Auto (Bld) [#/Vo l]on 10-06-2023 Lymphocytes (Bld) [#/Vol] 1.5 10 3/uL 1.2-3.8 [facility] Lymphocytes/100 WBC Auto (Bl d)on 10-06-2023 Lymphocytes/100 WBC (Bld) 12.9 % Low 20.5-60.0 [facility] MCH Auto (RBC) [Entitic mass ]on 10-06-2023 MCH (RBC) [Entitic mass] 22.5 pg Low 25.9-34.0 [facility] MCHC Auto (RBC) [Mass/Vol]on 10-06-2023 MCHC (RBC) [Mass/Vol] 29.7 g/dL Low 29.9-35.2 [facility] MCV Auto (RBC) [Entitic vol] on 10-06-2023 MCV (RBC) [Entitic vol] 75.9 fL Low 80.0-94.0 [facility] Monocytes Auto (Bld) [#/Vol] on 10-06-2023 Monocytes (Bld) [#/Vol] 1.3 10 3/uL High 0.3-0.8 [facility] Monocytes/100 WBC Auto (Bld) on 10-06-2023 Monocytes/100 WBC (Bld) 10.9 % 1.7-12.0 [facility] Neutrophils Auto (Bld) [#/Vo l]on 10-06-2023 Neutrophils (Bld) [#/Vol] 8.4 10 3/uL High 1.4-6.5 [facility] Neutrophils/100 WBC Auto (Bl d)on 10-06-2023 Neutrophils/100 WBC (Bld) 72.5 % 43.0-75.0 [facility] No Panel Informationon 10-05 Eosinophils # (Auto) 0.2 10 3/uL 0.0-0.7 [facility] Immature Granulocyte # (Auto) 0.17 10 3/uL High 0.00-0.03 [facility] Platelet mean volume Auto (B ld) [Entitic vol]on 10-06-2023 Platelet mean volume (Bld) [Entitic vol] 10.3 fL 9.5-13.5 [facility] Platelets Auto (Bld) [#/Vol] on 10-06-2023 Platelets (Bld) [#/Vol] 233 10 3/uL 150-450 [facility] RBC Auto (Bld) [#/Vol]on RBC (Bld) [#/Vol] 3.73 10 6/uL Low 4.70-6.10 [facility] Serum or plasma albumin/glob ulin mass ratioon 10-06-2023 Albumin/Globulin [Mass ratio] 0.5 {ratio} [facility] Serum or plasma anion gap de terminationon 10-06-2023 Anion gap [Moles/Vol] 14.1 mmol/L [facility] Basophils Auto (Bld) [#/Vol] on 10-05-2023 Basophils (Bld) [#/Vol] 0.1 10 3/uL 0.0-0.1 [facility] Basophils/100 WBC Auto (Bld) on 10-05-2023 Basophils/100 WBC (Bld) 0.6 % 0.2-2.0 [facility] Eosinophils/100 WBC Auto (Bl d)on 10-05-2023 Eosinophils/100 WBC (Bld) 3.3 % 0.9-7.0 [facility] Erythrocyte distribution wid th Auto (RBC) [Ratio]on 10-05-2023 Erythrocyte distribution width (RBC) [Ratio] 19.6 % High 11.0-15.0 [facility] Estimated glomerular filtrat ion rate (GFR) non- Americanon 10-05-2023 GFR/1.73 sq M.predicted among non-blacks MDRD (S/P/Bld) [Vol rate/Area] 41 mL/min/{1.73_m2} Low >=60 [facility] Globulin Calc (S) [Mass/Vol] on 10-05-2023 Globulin (S) [Mass/Vol] 4.7 g/dL [facility] Hematocrit Auto (Bld) [Volum e fraction]on 10-05-2023 Hematocrit (Bld) [Volume fraction] 29.9 % Low 42.0-54.0 [facility] Hemoglobin [Mass/volume] in Bloodon 10-05-2023 Hemoglobin (Bld) [Mass/Vol] 9.0 g/dL Low 14.0-18.0 [facility] Guy 10-05-2023 L Specimen: [id number] Received: 10/06/23 Status: [facility] Recindy Num: [id number] Spec Type: Surgical Subm Dr: Paula Elias DPM, MS Tissues: A DIGIT AMPUTATION (RT 2,3,4 AND 5 METATARSAL AM) Procedures: HE/6, Gross/Micro L4, Decalcification Age/ Patient Sex Location Account Attending Physician Solomon Feldman SR 58/M LABELL [id number] Paula Elias DPM, MS SPEC NUM: [id number] RECD: 10/06/23 STATUS: [place] NATH NUM: [id number] SHAKIRA: 10/05/[address]: Paula Elias DPM, MS ENTERED: 10/06/[address] [facility] [address]: Jericho Carey SPEC TYPE: Surgical [...] specimen demonstrates firm, yellow spongy bone matrix. 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: A1: Skin and soft tissue margins A2: Second digit, bone margin; #1 proximal phalangeal margin (following decal) A3: Third digit, bone margin; #2 proximal phalangeal margin (following decal) A4: Fourth digit, bone margin; #3 proximal phalangeal margin (following decal) A5: Fifth digit, bone margin; #4 proximal phalangeal margin (following decal) Specimen: [id number] Received: 10/06/23 Status: COL[facility] Nath Num: [id number] Spec Type: Surgical Subm Dr: Paula Elias,LINDSEY, MS Tissues: A DIGIT AMPUTATION (RT 2,3,4 AND 5 METATARSAL AM) Procedures: HE/6, Gross/Micro L4, Decalcification Patient: Solomon Feldman SR [id number] (Continued) Specimen: [id number] Received: 10/06/23 (Continued) Gross Description (Continued) Signed (signature on file) Padmini Linn MD 10/10/23 1542 Specimen: [id number] Received: 10/06/23 Status: COL[facility] Nath Num: [id number] Spec Type: Surgical Subm Dr: Paula Elias,LINDSEY, MS Tissues: A DIGIT AMPUTATION (RT 2,3,4 AND 5 METATARSAL AM) Procedures: LULU/Ramirez, Gross/Micro L4, Decalcification Patient: Solomon Feldman SR [id number] (Continued) Specimen: [id number] Received: 10/06/23 (Continued) Gross Description (Continued) A6: Full-thickness section to include skin, underlying soft tissue and bone (following decal) Clinical history: None given CPT Codes 11614 FOREFOOT AND DIGITS Specimen: [id number] Received: 10/06/23 Status: [facility] Nath Num: [id number] Spec Type: Surgical Subm Dr: Paula Elias,LINDSEY, MS Tissues: A DIGIT AMPUTATION (RT 2,3,4 AND 5 METATARSAL AM) Procedures: HE/Ramirez, Gross/Micro L4, Decalcification Patient: Solomon Feldman SR [id number] (Continued) Signed (signature on file) Padmini Linn MD 10/10/23 1542 Normal [facility] Laboratory - Chemistry and C hemistry - challengeon 10-05-2023 Albumin [Mass/Vol] 2.2 g/dL Low 3.4-5.0 [facility] ALP [Catalytic activity/Vol] 140 U/L High 46-116 [facility] ALT [Catalytic activity/Vol] 18 U/L 16-63 [facility] AST [Catalytic activity/Vol] 22 U/L 15-37 [facility] Bilirubin [Mass/Vol] 0.5 mg/dL 0.2-1.0 [facility] Calcium [Mass/Vol] 9.2 mg/dL 8.5-10.1 [facility] Chloride [Moles/Vol] 100 mmol/L 98-107 [facility] CO2 [Moles/Vol] 22.6 mmol/L 21.0-32.0 [facility] Creatinine [Mass/Vol] 1.74 mg/dL High 0.70-1.30 [facility] GFR/1.73 sq M.predicted MDRD (S/P/Bld) [Vol rate/Area] 49 mL/min/{1.73_m2} Low >=60 [facility] Glucose [Mass/Vol] 162 mg/dL High 74-106 [facility] Magnesium [Mass/Vol] 1.7 mg/dL Low 1.8-2.4 [facility] Potassium [Moles/Vol] 5.3 mmol/L High 3.5-5.1 [facility] Protein [Mass/Vol] 6.9 g/dL 6.4-8.2 [facility] Sodium [Moles/Vol] 133 mmol/L Low 136-145 [facility] Urea nitrogen [Mass/Vol] 30.0 mg/dL High 7.0-18.0 [facility] Urea nitrogen/Creatinine [Mass ratio] 17.2 mg/mg [facility] Laboratory - Hematology and Cell countson 10-05-2023 ESR (Bld) [Velocity] 130 mm/h High <=20 [facility] Immature granulocytes/100 WBC (Bld) 1.3 % High 0.0-0.5 [facility] Leukocytes [#/volume] correc jorge for nucleated erythrocytes in Blood by Automated counon 10-05-2023 WBC corrected for nucl RBC Auto (Bld) [#/Vol] 12.6 10 3/uL High 4.0-11.0 [facility] Lymphocytes Auto (Bld) [#/Vo l]on 10-05-2023 Lymphocytes (Bld) [#/Vol] 1.3 10 3/uL 1.2-3.8 [facility] Lymphocytes/100 WBC Auto (Bl d)on 10-05-2023 Lymphocytes/100 WBC (Bld) 10.1 % Low 20.5-60.0 [facility] MCH Auto (RBC) [Entitic mass ]on 10-05-2023 MCH (RBC) [Entitic mass] 22.7 pg Low 25.9-34.0 [facility] MCHC Auto (RBC) [Mass/Vol]on 10-05-2023 MCHC (RBC) [Mass/Vol] 30.1 g/dL 29.9-35.2 [facility] MCV Auto (RBC) [Entitic vol] on 10-05-2023 MCV (RBC) [Entitic vol] 75.3 fL Low 80.0-94.0 [facility] Monocytes Auto (Bld) [#/Vol] on 10-05-2023 Monocytes (Bld) [#/Vol] 1.4 10 3/uL High 0.3-0.8 [facility] Monocytes/100 WBC Auto (Bld) on 10-05-2023 Monocytes/100 WBC (Bld) 10.9 % 1.7-12.0 [facility] Neutrophils Auto (Bld) [#/Vo l]on 10-05-2023 Neutrophils (Bld) [#/Vol] 9.3 10 3/uL High 1.4-6.5 [facility] Neutrophils/100 WBC Auto (Bl d)on 10-05-2023 Neutrophils/100 WBC (Bld) 73.8 % 43.0-75.0 [facility] No Panel Informationon 10-04 Eosinophils # (Auto) 0.4 10 3/uL 0.0-0.7 [facility] Immature Granulocyte # (Auto) 0.16 10 3/uL High 0.00-0.03 [facility] Platelet mean volume Auto (B ld) [Entitic vol]on 10-05-2023 Platelet mean volume (Bld) [Entitic vol] 11.3 fL 9.5-13.5 [facility] Platelets Auto (Bld) [#/Vol] on 10-05-2023 Platelets (Bld) [#/Vol] 203 10 3/uL 150-450 [facility] RBC Auto (Bld) [#/Vol]on RBC (Bld) [#/Vol] 3.97 10 6/uL Low 4.70-6.10 [facility] Serum or plasma albumin/glob ulin mass ratioon 10-05-2023 Albumin/Globulin [Mass ratio] 0.5 {ratio} [facility] Serum or plasma anion gap de terminationon 10-05-2023 Anion gap [Moles/Vol] 15.7 mmol/L [facility] Basophils Auto (Bld) [#/Vol] on 10-04-2023 Basophils (Bld) [#/Vol] 0.1 10 3/uL 0.0-0.1 [facility] Basophils/100 WBC Auto (Bld) on 10-04-2023 Basophils/100 WBC (Bld) 0.5 % 0.2-2.0 [facility] Eosinophils/100 WBC Auto (Bl d)on 10-04-2023 Eosinophils/100 WBC (Bld) 3.6 % 0.9-7.0 [facility] Erythrocyte distribution wid th Auto (RBC) [Ratio]on 10-04-2023 Erythrocyte distribution width (RBC) [Ratio] 19.6 % High 11.0-15.0 [facility] Estimated glomerular filtrat ion rate (GFR) non- Americanon 10-04-2023 GFR/1.73 sq M.predicted among non-blacks MDRD (S/P/Bld) [Vol rate/Area] 44 mL/min/{1.73_m2} Low >=60 [facility] Globulin Calc (S) [Mass/Vol] on 10-04-2023 Globulin (S) [Mass/Vol] 4.3 g/dL [facility] Hematocrit Auto (Bld) [Volum e fraction]on 10-04-2023 Hematocrit (Bld) [Volume fraction] 26.8 % Low 42.0-54.0 [facility] Hemoglobin [Mass/volume] in Bloodon 10-04-2023 Hemoglobin (Bld) [Mass/Vol] 7.9 g/dL Low 14.0-18.0 [facility] Laboratory - Chemistry and C hemistry - challengeon 10-04-2023 Albumin [Mass/Vol] 1.9 g/dL Low 3.4-5.0 [facility] ALP [Catalytic activity/Vol] 135 U/L High 46-116 [facility] ALT [Catalytic activity/Vol] 16 U/L 16-63 [facility] AST [Catalytic activity/Vol] 19 U/L 15-37 [facility] Bilirubin [Mass/Vol] 0.4 mg/dL 0.2-1.0 [facility] Calcium [Mass/Vol] 7.8 mg/dL Low 8.5-10.1 [facility] Chloride [Moles/Vol] 102 mmol/L 98-107 [facility] CO2 [Moles/Vol] 25.0 mmol/L 21.0-32.0 [facility] Creatinine [Mass/Vol] 1.61 mg/dL High 0.70-1.30 [facility] GFR/1.73 sq M.predicted MDRD (S/P/Bld) [Vol rate/Area] 54 mL/min/{1.73_m2} Low >=60 [facility] Glucose [Mass/Vol] 136 mg/dL High 74-106 [facility] Magnesium [Mass/Vol] 1.7 mg/dL Low 1.8-2.4 [facility] Potassium [Moles/Vol] 5.1 mmol/L 3.5-5.1 [facility] Protein [Mass/Vol] 6.2 g/dL Low 6.4-8.2 [facility] Sodium [Moles/Vol] 134 mmol/L Low 136-145 [facility] Urea nitrogen [Mass/Vol] 25.0 mg/dL High 7.0-18.0 [facility] Urea nitrogen/Creatinine [Mass ratio] 15.5 mg/mg [facility] Laboratory - Hematology and Cell countson 10-04-2023 ESR (Bld) [Velocity] 117 mm/h High <=20 [facility] Immature granulocytes/100 WBC (Bld) 0.9 % High 0.0-0.5 [facility] Leukocytes [#/volume] correc jorge for nucleated erythrocytes in Blood by Automated counon 10-04-2023 WBC corrected for nucl RBC Auto (Bld) [#/Vol] 11.5 10 3/uL High 4.0-11.0 [facility] Lymphocytes Auto (Bld) [#/Vo l]on 10-04-2023 Lymphocytes (Bld) [#/Vol] 1.3 10 3/uL 1.2-3.8 [facility] Lymphocytes/100 WBC Auto (Bl d)on 10-04-2023 Lymphocytes/100 WBC (Bld) 10.9 % Low 20.5-60.0 [facility] MCH Auto (RBC) [Entitic mass ]on 10-04-2023 MCH (RBC) [Entitic mass] 22.4 pg Low 25.9-34.0 [facility] MCHC Auto (RBC) [Mass/Vol]on 10-04-2023 MCHC (RBC) [Mass/Vol] 29.5 g/dL Low 29.9-35.2 [facility] MCV Auto (RBC) [Entitic vol] on 10-04-2023 MCV (RBC) [Entitic vol] 75.9 fL Low 80.0-94.0 [facility] Monocytes Auto (Bld) [#/Vol] on 10-04-2023 Monocytes (Bld) [#/Vol] 1.4 10 3/uL High 0.3-0.8 [facility] Monocytes/100 WBC Auto (Bld) on 10-04-2023 Monocytes/100 WBC (Bld) 12.4 % High 1.7-12.0 [facility] Neutrophils Auto (Bld) [#/Vo l]on 10-04-2023 Neutrophils (Bld) [#/Vol] 8.3 10 3/uL High 1.4-6.5 [facility] Neutrophils/100 WBC Auto (Bl d)on 10-04-2023 Neutrophils/100 WBC (Bld) 71.7 % 43.0-75.0 [facility] No Panel Informationon 10-03 Eosinophils # (Auto) 0.4 10 3/uL 0.0-0.7 [facility] Immature Granulocyte # (Auto) 0.10 10 3/uL High 0.00-0.03 [facility] Platelet mean volume Auto (B ld) [Entitic vol]on 10-04-2023 Platelet mean volume (Bld) [Entitic vol] 11.5 fL 9.5-13.5 [facility] Platelets Auto (Bld) [#/Vol] on 10-04-2023 Platelets (Bld) [#/Vol] 154 10 3/uL 150-450 [facility] RBC Auto (Bld) [#/Vol]on RBC (Bld) [#/Vol] 3.53 10 6/uL Low 4.70-6.10 [facility] Serum or plasma albumin/glob ulin mass ratioon 10-04-2023 Albumin/Globulin [Mass ratio] 0.4 {ratio} [facility] Serum or plasma anion gap de terminationon 10-04-2023 Anion gap [Moles/Vol] 12.1 mmol/L [facility] Basophils Auto (Bld) [#/Vol] on 10-03-2023 Basophils (Bld) [#/Vol] 0.1 10 3/uL 0.0-0.1 [facility] Basophils/100 WBC Auto (Bld) on 10-03-2023 Basophils/100 WBC (Bld) 0.7 % 0.2-2.0 [facility] Eosinophils/100 WBC Auto (Bl d)on 10-03-2023 Eosinophils/100 WBC (Bld) 2.7 % 0.9-7.0 [facility] Erythrocyte distribution wid th Auto (RBC) [Ratio]on 10-03-2023 Erythrocyte distribution width (RBC) [Ratio] 19.2 % High 11.0-15.0 [facility] Estimated glomerular filtrat ion rate (GFR) non- Americanon 10-03-2023 GFR/1.73 sq M.predicted among non-blacks MDRD (S/P/Bld) [Vol rate/Area] 46 mL/min/{1.73_m2} Low >=60 [facility] Globulin Calc (S) [Mass/Vol] on 10-03-2023 Globulin (S) [Mass/Vol] 4.1 g/dL [facility] Hematocrit Auto (Bld) [Volum e fraction]on 10-03-2023 Hematocrit (Bld) [Volume fraction] 26.4 % Low 42.0-54.0 [facility] Hemoglobin [Mass/volume] in Bloodon 10-03-2023 Hemoglobin (Bld) [Mass/Vol] 8.1 g/dL Low 14.0-18.0 [facility] Laboratory - Chemistry and C hemistry - challengeon 10-03-2023 Albumin [Mass/Vol] 1.9 g/dL Low 3.4-5.0 [facility] ALP [Catalytic activity/Vol] 140 U/L High 46-116 [facility] ALT [Catalytic activity/Vol] 17 U/L 16-63 [facility] AST [Catalytic activity/Vol] 21 U/L 15-37 [facility] Bilirubin [Mass/Vol] 0.3 mg/dL 0.2-1.0 [facility] Calcium [Mass/Vol] 6.7 mg/dL Low 8.5-10.1 [facility] Chloride [Moles/Vol] 101 mmol/L 98-107 [facility] CO2 [Moles/Vol] 23.9 mmol/L 21.0-32.0 [facility] Creatinine [Mass/Vol] 1.57 mg/dL High 0.70-1.30 [facility] GFR/1.73 sq M.predicted MDRD (S/P/Bld) [Vol rate/Area] 55 mL/min/{1.73_m2} Low >=60 [facility] Glucose [Mass/Vol] 142 mg/dL High 74-106 [facility] Magnesium [Mass/Vol] 1.3 mg/dL Low 1.8-2.4 [facility] Potassium [Moles/Vol] 4.8 mmol/L 3.5-5.1 [facility] Protein [Mass/Vol] 6.0 g/dL Low 6.4-8.2 [facility] Sodium [Moles/Vol] 134 mmol/L Low 136-145 [facility] Urea nitrogen [Mass/Vol] 23.0 mg/dL High 7.0-18.0 [facility] Urea nitrogen/Creatinine [Mass ratio] 14.6 mg/mg [facility] Laboratory - Hematology and Cell countson 10-03-2023 ESR (Bld) [Velocity] mm/h High <=20 [facility] Immature granulocytes/100 WBC (Bld) 1.0 % High 0.0-0.5 [facility] Leukocytes [#/volume] correc jorge for nucleated erythrocytes in Blood by Automated counon 10-03-2023 WBC corrected for nucl RBC Auto (Bld) [#/Vol] 11.6 10 3/uL High 4.0-11.0 [facility] Lymphocytes Auto (Bld) [#/Vo l]on 10-03-2023 Lymphocytes (Bld) [#/Vol] 1.4 10 3/uL 1.2-3.8 [facility] Lymphocytes/100 WBC Auto (Bl d)on 10-03-2023 Lymphocytes/100 WBC (Bld) 12.1 % Low 20.5-60.0 [facility] MCH Auto (RBC) [Entitic mass ]on 10-03-2023 MCH (RBC) [Entitic mass] 23.2 pg Low 25.9-34.0 [facility] MCHC Auto (RBC) [Mass/Vol]on 10-03-2023 MCHC (RBC) [Mass/Vol] 30.7 g/dL 29.9-35.2 [facility] MCV Auto (RBC) [Entitic vol] on 10-03-2023 MCV (RBC) [Entitic vol] 75.6 fL Low 80.0-94.0 [facility] Monocytes Auto (Bld) [#/Vol] on 10-03-2023 Monocytes (Bld) [#/Vol] 1.3 10 3/uL High 0.3-0.8 [facility] Monocytes/100 WBC Auto (Bld) on 10-03-2023 Monocytes/100 WBC (Bld) 10.8 % 1.7-12.0 [facility] Neutrophils Auto (Bld) [#/Vo l]on 10-03-2023 Neutrophils (Bld) [#/Vol] 8.5 10 3/uL High 1.4-6.5 [facility] Neutrophils/100 WBC Auto (Bl d)on 10-03-2023 Neutrophils/100 WBC (Bld) 72.7 % 43.0-75.0 [facility] No Panel Informationon 10-02 Eosinophils # (Auto) 0.3 10 3/uL 0.0-0.7 [facility] Immature Granulocyte # (Auto) 0.12 10 3/uL High 0.00-0.03 [facility] Platelet mean volume Auto (B ld) [Entitic vol]on 10-03-2023 Platelet mean volume (Bld) [Entitic vol] 11.3 fL 9.5-13.5 [facility] Platelets Auto (Bld) [#/Vol] on 10-03-2023 Platelets (Bld) [#/Vol] 141 10 3/uL Low 150-450 [facility] RBC Auto (Bld) [#/Vol]on RBC (Bld) [#/Vol] 3.49 10 6/uL Low 4.70-6.10 [facility] Serum or plasma albumin/glob ulin mass ratioon 10-03-2023 Albumin/Globulin [Mass ratio] 0.5 {ratio} [facility] Serum or plasma anion gap de terminationon 10-03-2023 Anion gap [Moles/Vol] 13.9 mmol/L [facility] Basophils Auto (Bld) [#/Vol] on 10-02-2023 Basophils (Bld) [#/Vol] 0.0 10 3/uL 0.0-0.1 [facility] Basophils/100 WBC Auto (Bld) on 10-02-2023 Basophils/100 WBC (Bld) 0.4 % 0.2-2.0 [facility] Eosinophils/100 WBC Auto (Bl d)on 10-02-2023 Eosinophils/100 WBC (Bld) 2.2 % 0.9-7.0 [facility] Erythrocyte distribution wid th Auto (RBC) [Ratio]on 10-02-2023 Erythrocyte distribution width (RBC) [Ratio] 19.3 % High 11.0-15.0 [facility] Estimated glomerular filtrat ion rate (GFR) non- Americanon 10-02-2023 GFR/1.73 sq M.predicted among non-blacks MDRD (S/P/Bld) [Vol rate/Area] 41 mL/min/{1.73_m2} Low >=60 [facility] Globulin Calc (S) [Mass/Vol] on 10-02-2023 Globulin (S) [Mass/Vol] 4.2 g/dL [facility] Hematocrit Auto (Bld) [Volum e fraction]on 10-02-2023 Hematocrit (Bld) [Volume fraction] 26.1 % Low 42.0-54.0 [facility] Hemoglobin [Mass/volume] in Bloodon 10-02-2023 Hemoglobin (Bld) [Mass/Vol] 7.8 g/dL Low 14.0-18.0 [facility] Guy 10-02-2023 L Specimen: [id number] Received: 10/03/23 Status: SOUT Req Num: [id number] Spec Type: Surgical Subm Dr: Paula Elias DPM, MS Tissues: A DIGIT AMPUTATION (FIRST METATARSAL RT FOOT) Procedures: HE/2, Gross/Micro L4, Decalcification Age/ Patient Sex Location Account Attending Physician Solomon Feldman SR 58/M LABELL [id number] Paula Elias DPM, MS SPEC NUM: [id number] RECD: 10/03/23 STATUS: [place] NATH NUM: [id number] SHAKIRA: 10/02/[address]: Paula Elias DPM, MS ENTERED: 10/03/[address] [facility] [address]: Jericho Carey SPEC TYPE: Surgical [...] firm yellow- pink spongy bone matrix. 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 Clinical history: Right diabetic foot infection CPT Codes 81671 Specimen: [id number] Received: 10/03/23 Status: COLTON Nath Num: [id number] Spec Type: Surgical Subm Dr: Paula Elias DPM, MS Tissues: A DIGIT AMPUTATION (FIRST METATARSAL RT FOOT) Procedures: HE/2, Gross/Micro L4, Decalcification Patient: Solomon Feldman María CHRITSIAN [id number] (Continued) Signed (signature on file) Padmini Linn MD 10/05/23 1426 Normal [facility] Laboratory - Chemistry and C hemistry - challengeon 10-02-2023 Albumin [Mass/Vol] 2.1 g/dL Low 3.4-5.0 [facility] ALP [Catalytic activity/Vol] 131 U/L High 46-116 [facility] ALT [Catalytic activity/Vol] 17 U/L 16-63 [facility] AST [Catalytic activity/Vol] 13 U/L Low 15-37 [facility] Bilirubin [Mass/Vol] 0.3 mg/dL 0.2-1.0 [facility] Calcium [Mass/Vol] 6.6 mg/dL Low 8.5-10.1 [facility] Chloride [Moles/Vol] 105 mmol/L 98-107 [facility] CO2 [Moles/Vol] 24.3 mmol/L 21.0-32.0 [facility] Creatinine [Mass/Vol] 1.72 mg/dL High 0.70-1.30 [facility] GFR/1.73 sq M.predicted MDRD (S/P/Bld) [Vol rate/Area] 50 mL/min/{1.73_m2} Low >=60 [facility] Glucose [Mass/Vol] 156 mg/dL High 74-106 [facility] Magnesium [Mass/Vol] 1.5 mg/dL Low 1.8-2.4 [facility] Potassium [Moles/Vol] 4.0 mmol/L 3.5-5.1 [facility] Protein [Mass/Vol] 6.3 g/dL Low 6.4-8.2 [facility] Sodium [Moles/Vol] 139 mmol/L 136-145 [facility] Urea nitrogen [Mass/Vol] 27.0 mg/dL High 7.0-18.0 [facility] Urea nitrogen/Creatinine [Mass ratio] 15.7 mg/mg [facility] Laboratory - Hematology and Cell countson 10-02-2023 Immature granulocytes/100 WBC (Bld) 0.4 % 0.0-0.5 [facility] ESR (Bld) [Velocity] 110 mm/h High <=20 [facility] Laboratory - Microbiology an d Antimicrobial susceptibilityOrdered By: Truman Bryant on 10-02-2023 Microscopic observation Gram stain Nom (Unsp spec) [facility] Leukocytes [#/volume] correc jorge for nucleated erythrocytes in Blood by Automated counon 10-02-2023 WBC corrected for nucl RBC Auto (Bld) [#/Vol] 8.5 10 3/uL 4.0-11.0 [facility] Lymphocytes Auto (Bld) [#/Vo l]on 10-02-2023 Lymphocytes (Bld) [#/Vol] 1.5 10 3/uL 1.2-3.8 [facility] Lymphocytes/100 WBC Auto (Bl d)on 10-02-2023 Lymphocytes/100 WBC (Bld) 17.3 % Low 20.5-60.0 [facility] MCH Auto (RBC) [Entitic mass ]on 10-02-2023 MCH (RBC) [Entitic mass] 22.5 pg Low 25.9-34.0 [facility] MCHC Auto (RBC) [Mass/Vol]on 10-02-2023 MCHC (RBC) [Mass/Vol] 29.9 g/dL 29.9-35.2 [facility] MCV Auto (RBC) [Entitic vol] on 10-02-2023 MCV (RBC) [Entitic vol] 75.2 fL Low 80.0-94.0 [facility] Monocytes Auto (Bld) [#/Vol] on 10-02-2023 Monocytes (Bld) [#/Vol] 0.8 10 3/uL 0.3-0.8 [facility] Monocytes/100 WBC Auto (Bld) on 10-02-2023 Monocytes/100 WBC (Bld) 9.1 % 1.7-12.0 [facility] Neutrophils Auto (Bld) [#/Vo l]on 10-02-2023 Neutrophils (Bld) [#/Vol] 6.0 10 3/uL 1.4-6.5 [facility] Neutrophils/100 WBC Auto (Bl d)on 10-02-2023 Neutrophils/100 WBC (Bld) 70.6 % 43.0-75.0 [facility] No Panel Informationon 10-01 Eosinophils # (Auto) 0.2 10 3/uL 0.0-0.7 [facility] Immature Granulocyte # (Auto) 0.03 10 3/uL 0.00-0.03 [facility] Fungal Smear Result [facility] Miscellaneous Test Comment See comment [facility] Comment on above: Specimen Source: JONO TRT - Foot Right - Foot Rt - 604.000 No Panel InformationOrdered By: Truman Bryant on 10-02-2023 Tissue Culture [facility] No Panel InformationOrdered By: Paula Elias on 10-02-2023 Acid Fast Smear [facility] AFB Specimen Processing [facility] Platelet mean volume Auto (B ld) [Entitic vol]on 10-02-2023 Platelet mean volume (Bld) [Entitic vol] 10.6 fL 9.5-13.5 [facility] Platelets Auto (Bld) [#/Vol] on 10-02-2023 Platelets (Bld) [#/Vol] 142 10 3/uL Low 150-450 [facility] RBC Auto (Bld) [#/Vol]on RBC (Bld) [#/Vol] 3.47 10 6/uL Low 4.70-6.10 [facility] Serum or plasma albumin/glob ulin mass ratioon 10-02-2023 Albumin/Globulin [Mass ratio] 0.5 {ratio} [facility] Serum or plasma anion gap de terminationon 10-02-2023 Anion gap [Moles/Vol] 13.7 mmol/L [facility] Basophils Auto (Bld) [#/Vol] on 10-01-2023 Basophils (Bld) [#/Vol] 0.0 10 3/uL 0.0-0.1 [facility] Basophils/100 WBC Auto (Bld) on 10-01-2023 Basophils/100 WBC (Bld) 0.4 % 0.2-2.0 [facility] Eosinophils/100 WBC Auto (Bl d)on 10-01-2023 Eosinophils/100 WBC (Bld) 1.7 % 0.9-7.0 [facility] Erythrocyte distribution wid th Auto (RBC) [Ratio]on 10-01-2023 Erythrocyte distribution width (RBC) [Ratio] 18.5 % High 11.0-15.0 [facility] Estimated glomerular filtrat ion rate (GFR) non- Americanon 10-01-2023 GFR/1.73 sq M.predicted among non-blacks MDRD (S/P/Bld) [Vol rate/Area] 27 mL/min/{1.73_m2} Low >=60 [facility] Globulin Calc (S) [Mass/Vol] on 10-01-2023 Globulin (S) [Mass/Vol] 4.0 g/dL [facility] Hematocrit Auto (Bld) [Volum e fraction]on 10-01-2023 Hematocrit (Bld) [Volume fraction] 26.5 % Low 42.0-54.0 [facility] Hemoglobin [Mass/volume] in Bloodon 10-01-2023 Hemoglobin (Bld) [Mass/Vol] 8.0 g/dL Low 14.0-18.0 [facility] Laboratory - Chemistry and C hemistry - challengeon 10-01-2023 Lactate [Moles/Vol] 1.8 mmol/L 0.4-2.0 [facility] Albumin [Mass/Vol] 1.9 g/dL Low 3.4-5.0 [facility] ALP [Catalytic activity/Vol] 113 U/L 46-116 [facility] ALT [Catalytic activity/Vol] 17 U/L 16-63 [facility] AST [Catalytic activity/Vol] 14 U/L Low 15-37 [facility] Bilirubin [Mass/Vol] 0.3 mg/dL 0.2-1.0 [facility] Calcium [Mass/Vol] 5.7 mg/dL Low 8.5-10.1 [facility] Comment on above: RESULTS CALLED TO Patricio Genao(RN)@BY Marybel Hawkins MLT at 0619 Chloride [Moles/Vol] 102 mmol/L 98-107 [facility] CO2 [Moles/Vol] 20.4 mmol/L Low 21.0-32.0 [facility] Creatinine [Mass/Vol] 2.46 mg/dL High 0.70-1.30 [facility] GFR/1.73 sq M.predicted MDRD (S/P/Bld) [Vol rate/Area] 33 mL/min/{1.73_m2} Low >=60 [facility] Glucose [Mass/Vol] 67 mg/dL Low 74-106 [facility] Magnesium [Mass/Vol] 0.8 mg/dL Low 1.8-2.4 [facility] Comment on above: RESULTS CALLED TO Patricio CORREA)@BY SOFI[address] Way at 0601 Potassium [Moles/Vol] 3.1 mmol/L Low 3.5-5.1 [facility] Protein [Mass/Vol] 5.9 g/dL Low 6.4-8.2 [facility] Sodium [Moles/Vol] 138 mmol/L 136-145 [facility] Urea nitrogen [Mass/Vol] 28.0 mg/dL High 7.0-18.0 [facility] Urea nitrogen/Creatinine [Mass ratio] 11.4 mg/mg [facility] Laboratory - Hematology and Cell countson 10-01-2023 ESR (Bld) [Velocity] 96 mm/h High <=20 [facility] Immature granulocytes/100 WBC (Bld) 0.6 % High 0.0-0.5 [facility] Leukocytes [#/volume] correc jorge for nucleated erythrocytes in Blood by Automated counon 10-01-2023 WBC corrected for nucl RBC Auto (Bld) [#/Vol] 10.0 10 3/uL 4.0-11.0 [facility] Lymphocytes Auto (Bld) [#/Vo l]on 10-01-2023 Lymphocytes (Bld) [#/Vol] 1.3 10 3/uL 1.2-3.8 [facility] Lymphocytes/100 WBC Auto (Bl d)on 10-01-2023 Lymphocytes/100 WBC (Bld) 12.8 % Low 20.5-60.0 [facility] MCH Auto (RBC) [Entitic mass ]on 10-01-2023 MCH (RBC) [Entitic mass] 22.4 pg Low 25.9-34.0 [facility] MCHC Auto (RBC) [Mass/Vol]on 10-01-2023 MCHC (RBC) [Mass/Vol] 30.2 g/dL 29.9-35.2 [facility] MCV Auto (RBC) [Entitic vol] on 10-01-2023 MCV (RBC) [Entitic vol] 74.2 fL Low 80.0-94.0 [facility] Monocytes Auto (Bld) [#/Vol] on 10-01-2023 Monocytes (Bld) [#/Vol] 0.7 10 3/uL 0.3-0.8 [facility] Monocytes/100 WBC Auto (Bld) on 10-01-2023 Monocytes/100 WBC (Bld) 6.9 % 1.7-12.0 [facility] Neutrophils Auto (Bld) [#/Vo l]on 10-01-2023 Neutrophils (Bld) [#/Vol] 7.8 10 3/uL High 1.4-6.5 [facility] Neutrophils/100 WBC Auto (Bl d)on 10-01-2023 Neutrophils/100 WBC (Bld) 77.6 % High 43.0-75.0 [facility] No Panel Informationon 09-30 C-Reactive Protein, Quantitative 10.58 mg/dL High <=0.50 [facility] Eosinophils # (Auto) 0.2 10 3/uL 0.0-0.7 [facility] Immature Granulocyte # (Auto) 0.06 10 3/uL High 0.00-0.03 [facility] Troponin I High Sensitivity 8.3 pg/mL 4.0-76.1 [facility] Comment on above: CUT-OFF POINTS HAVE BEEN [...] Partial Pressure CO2 30.4 mm[Hg] Low 40.0-52.0 [facility] Venous Blood pH 7.421 7.330-7.43 0 [facility] Platelet mean volume Auto (B ld) [Entitic vol]on 10-01-2023 Platelet mean volume (Bld) [Entitic vol] 11.2 fL 9.5-13.5 [facility] Platelets Auto (Bld) [#/Vol] on 10-01-2023 Platelets (Bld) [#/Vol] 164 10 3/uL 150-450 [facility] RBC Auto (Bld) [#/Vol]on RBC (Bld) [#/Vol] 3.57 10 6/uL Low 4.70-6.10 [facility] Serum or plasma albumin/glob ulin mass ratioon 10-01-2023 Albumin/Globulin [Mass ratio] 0.5 {ratio} [facility] Serum or plasma anion gap de terminationon 10-01-2023 Anion gap [Moles/Vol] 18.7 mmol/L [facility] Automated epithelial cells c ount in urine sediment (number/area)on 09-30-2023 Epithelial cells Auto (Urine sed) [#/Area] NONE SEEN #/LPF NONE/RARE [facility] Automated leukocytes count i n urine sediment (number/area)on 09-30-2023 WBC Auto (Urine sed) [#/Area] NONE SEEN #/HPF 0-2 [facility] Automated urine specific gra vity by refractometryon 09-30-2023 Specific gravity Refractometry automated (U) [Rel density] <=1.005 Abnormal 1.005-1.02 5 [facility] Basophils Auto (Bld) [#/Vol] on 09-30-2023 Basophils (Bld) [#/Vol] 0.1 10 3/uL 0.0-0.1 [facility] Basophils/100 WBC Auto (Bld) on 09-30-2023 Basophils/100 WBC (Bld) 0.4 % 0.2-2.0 [facility] Bilirubin Auto test strip (U ) [Mass/Vol]on 09-30-2023 Bilirubin (U) [Mass/Vol] Negative NEGATIVE [facility] Casts typing in urine sedime nt by light microscopyon 09-30-2023 Casts LM Nom (Urine sed) NONE SEEN #/LPF NONE SEEN [facility] Color Auto (U)on 09-30-2023 Color (U) LT. YELLOW YELLOW [facility] Eosinophils/100 WBC Auto (Bl d)on 09-30-2023 Eosinophils/100 WBC (Bld) 1.4 % 0.9-7.0 [facility] Erythrocyte distribution wid th Auto (RBC) [Ratio]on 09-30-2023 Erythrocyte distribution width (RBC) [Ratio] 19.0 % High 11.0-15.0 [facility] Estimated glomerular filtrat ion rate (GFR) non- Americanon 09-30-2023 GFR/1.73 sq M.predicted among non-blacks MDRD (S/P/Bld) [Vol rate/Area] 19 mL/min/{1.73_m2} Low >=60 [facility] Globulin Calc (S) [Mass/Vol] on 09-30-2023 Globulin (S) [Mass/Vol] 4.8 g/dL [facility] Hematocrit Auto (Bld) [Volum e fraction]on 09-30-2023 Hematocrit (Bld) [Volume fraction] 32.9 % Low 42.0-54.0 [facility] Hemoglobin [Mass/volume] in Bloodon 09-30-2023 Hemoglobin (Bld) [Mass/Vol] 10.0 g/dL Low 14.0-18.0 [facility] INR in Platelet poor plasma by Coagulation assayon 09-30-2023 INR Coag (PPP) [Relative time] 1.23 {INR} [facility] Comment on above: DESIRED INR:2.0-3.0 CONDITIONS NOT LISTED BELOW2.5-3.5 FOR PROSTHETIC HEART VALVE REPLACEMENT2.5-3.5 RECURRENT THROMBOSIS Ketones Auto test strip (U) [Mass/Vol]on 09-30-2023 Ketones (U) [Mass/Vol] Negative NEGATIVE Fi [facility] Laboratory - Chemistry and C hemistry - challengeon 09-30-2023 Lactate [Moles/Vol] 4.2 mmol/L High 0.4-2.0 [facility] Comment on above: RESULTS CALLED TO Patricio Genao (RN)@BY [address] Way at 2312 Albumin [Mass/Vol] 2.4 g/dL Low 3.4-5.0 [facility] ALP [Catalytic activity/Vol] 145 U/L High 46-116 [facility] ALT [Catalytic activity/Vol] 17 U/L 16-63 [facility] AST [Catalytic activity/Vol] 21 U/L 15-37 [facility] Bilirubin [Mass/Vol] 0.4 mg/dL 0.2-1.0 [facility] Calcium [Mass/Vol] 5.8 mg/dL Low 8.5-10.1 [facility] Comment on above: RESULTS CALLED TO GIOVANNA CASTANON @BY Verona Hanson at 1645 Chloride [Moles/Vol] 97 mmol/L Low 98-107 [facility] CO2 [Moles/Vol] 18.3 mmol/L Low 21.0-32.0 [facility] Creatinine [Mass/Vol] 3.43 mg/dL High 0.70-1.30 [facility] GFR/1.73 sq M.predicted MDRD (S/P/Bld) [Vol rate/Area] 22 mL/min/{1.73_m2} Low >=60 [facility] Glucose [Mass/Vol] 208 mg/dL High 74-106 [facility] Magnesium [Mass/Vol] 0.5 mg/dL Low 1.8-2.4 [facility] Comment on above: RESULTS CALLED TO Giovanna Castanon @BY Marybel Hawkins, [employer] [id number] Natriuretic peptide B (Bld) [Mass/Vol] 611.0 pg/mL <=900.0 [facility] Potassium [Moles/Vol] 3.9 mmol/L 3.5-5.1 [facility] Protein [Mass/Vol] 7.2 g/dL 6.4-8.2 [facility] Sodium [Moles/Vol] 137 mmol/L 136-145 [facility] Urea nitrogen [Mass/Vol] 34.0 mg/dL High 7.0-18.0 [facility] Urea nitrogen/Creatinine [Mass ratio] 9.9 mg/mg [facility] Laboratory - Hematology and Cell countson 09-30-2023 ESR (Bld) [Velocity] 130 mm/h High <=20 [facility] Immature granulocytes/100 WBC (Bld) 0.6 % High 0.0-0.5 [facility] Leukocytes [#/volume] correc jorge for nucleated erythrocytes in Blood by Automated counon 09-30-2023 WBC corrected for nucl RBC Auto (Bld) [#/Vol] 13.9 10 3/uL High 4.0-11.0 [facility] Lymphocytes Auto (Bld) [#/Vo l]on 09-30-2023 Lymphocytes (Bld) [#/Vol] 1.4 10 3/uL 1.2-3.8 [facility] Lymphocytes/100 WBC Auto (Bl d)on 09-30-2023 Lymphocytes/100 WBC (Bld) 10.1 % Low 20.5-60.0 [facility] MCH Auto (RBC) [Entitic mass ]on 09-30-2023 MCH (RBC) [Entitic mass] 22.7 pg Low 25.9-34.0 [facility] MCHC Auto (RBC) [Mass/Vol]on 09-30-2023 MCHC (RBC) [Mass/Vol] 30.4 g/dL 29.9-35.2 [facility] MCV Auto (RBC) [Entitic vol] on 09-30-2023 MCV (RBC) [Entitic vol] 74.6 fL Low 80.0-94.0 [facility] Monocytes Auto (Bld) [#/Vol] on 09-30-2023 Monocytes (Bld) [#/Vol] 0.9 10 3/uL High 0.3-0.8 [facility] Monocytes/100 WBC Auto (Bld) on 09-30-2023 Monocytes/100 WBC (Bld) 6.7 % 1.7-12.0 [facility] Mucus LM Ql (Urine sed)on Mucus Ql (Urine sed) NONE SEEN NONE SEEN [facility] Neutrophils Auto (Bld) [#/Vo l]on 09-30-2023 Neutrophils (Bld) [#/Vol] 11.2 10 3/uL High 1.4-6.5 [facility] Neutrophils/100 WBC Auto (Bl d)on 09-30-2023 Neutrophils/100 WBC (Bld) 80.8 % High 43.0-75.0 [facility] No Panel Informationon 09-29 Troponin I High Sensitivity 7.9 pg/mL 4.0-76.1 [facility] Comment on above: CUT-OFF POINTS HAVE BEEN [...] Partial Pressure CO2 29.6 mm[Hg] Low 40.0-52.0 [facility] Venous Blood pH 7.405 7.330-7.43 0 [facility] Urine Culture Reflexed NO Fi [facility] C-Reactive Protein, Quantitative 14.76 mg/dL High <=0.50 [facility] Eosinophils # (Auto) 0.2 10 3/uL 0.0-0.7 [facility] Immature Granulocyte # (Auto) 0.09 10 3/uL High 0.00-0.03 [facility] No Panel InformationOrdered By: Chandrika Castanon on 09-30-2023 Blood Culture 2 [facility] Wound Culture [facility] Blood Culture 1 [facility] Platelet mean volume Auto (B ld) [Entitic vol]on 09-30-2023 Platelet mean volume (Bld) [Entitic vol] 10.9 fL 9.5-13.5 [facility] Platelets Auto (Bld) [#/Vol] on 09-30-2023 Platelets (Bld) [#/Vol] 227 10 3/uL 150-450 [facility] Protein Auto test strip (U) [Mass/Vol]on 09-30-2023 Protein (U) [Mass/Vol] Negative NEG/TRACE [facility] Prothrombin time (PT)on 09-04 PT Coag (PPP) [Time] 12.9 s High 9.0-11.6 [facility] RBC Auto (Bld) [#/Vol]on RBC (Bld) [#/Vol] 4.41 10 6/uL Low 4.70-6.10 [facility] Serum or plasma albumin/glob ulin mass ratioon 09-30-2023 Albumin/Globulin [Mass ratio] 0.5 {ratio} [facility] Serum or plasma anion gap de terminationon 09-30-2023 Anion gap [Moles/Vol] 25.6 mmol/L [facility] Specific gravity Auto test s trip (U) [Rel density]on 09-30-2023 Specific gravity (U) [Rel density] CLEAR CLEAR [facility] Urine bacteria detection by automated methodon 09-30-2023 Bacteria Auto Ql (U) NONE SEEN #/HPF NONE SEEN [facility] Urine glucose measurement by test strip (mass/volume)on 09-30-2023 Glucose Test strip (U) [Mass/Vol] 500 mg/dL Abnormal NEGATIVE [facility] Urine hemoglobin detection b y automated test stripon 09-30-2023 Hemoglobin Auto test strip Ql (U) TRACE-I NEGATIVE [facility] Urine nitrite detection by a utomated test stripon 09-30-2023 Nitrite Auto test strip Ql (U) Negative NEGATIVE [facility] Urine sediment crystal ident ification by light microscopyon 09-30-2023 Crystals LM Nom (Urine sed) None Seen #/HPF None Seen [facility] Urine sediment leukocyte cou nt by microscopy (number/high power field)on 09-30-2023 WBC LM.HPF (Urine sed) [#/Area] NONE SEEN #/HPF NONE SEEN [facility] Urobilinogen Auto test strip (U) [Mass/Vol]on 09-30-2023 Urobilinogen Qn (U) 0.2 {Brendan'U}/dL 0.2-1.0 [facility] pH Auto test strip (U)on pH (U) 5.5 [pH] 5.0-9.0 [facility] Guy 09-21-2023 L Specimen: [id number] Received: 09/21/23 Status: COLTON Nath Num: [id number] Spec Type: Surgical Subm Dr: Paula Elias DPM, MS Tissues: A Bone Fragments - Other than Path Fracture Procedures: HE, Gross/Micro L3, Decalcification Age/ Patient Sex Location Account Attending Physician Solomon Feldman SR 58/M LABELL [id number] Paula Elias DPM, MS SPEC NUM: [id number] RECD: 09/21/23 STATUS: FRANCISCODaniel NATH NUM: [id number] SHAKIRA: 09/21/[address]: Paula Elias DPM, MS ENTERED: 09/21/[address]: SPEC TYPE: Surgical DEPT: RAMSEY MARCANO ENTERED BY: [id number] RECV BY: [id number] ORDERED: HE, Gross/Micro L3, Decalcification ORDERED: HE, [...] excisional debridement with skin substitute. CPT Codes 70674, 98572 Specimen: [id number] Received: 09/21/23 Status: COLTON Nath Num: [id number] Spec Type: Surgical Subm Dr: Paula Elias DPM, MS Tissues: A Bone Fragments - Other than Path Fracture Procedures: LULU Gross/Micro L3, Decalcification Patient: Solomon Feldman SR [id number] (Continued) Signed (signature on file) Victor Hugo Sotelo MD 09/26/23 0843 Normal [facility] Laboratory - Microbiology an d Antimicrobial susceptibilityOrdered By: Jenaro Lynch on 09-21-2023 Microscopic observation Gram stain Nom (Unsp spec) [facility] Activated partial thrombopla stin time (aPTT) in platelet poor plasma by coagulation aon 09-18-2023 aPTT Coag (PPP) [Time] 32.0 s 22.3-36.2 [facility] Basophils Auto (Bld) [#/Vol] on 09-18-2023 Basophils (Bld) [#/Vol] 0.1 10 3/uL 0.0-0.1 [facility] Basophils/100 WBC Auto (Bld) on 09-18-2023 Basophils/100 WBC (Bld) 0.9 % 0.2-2.0 [facility] Eosinophils/100 WBC Auto (Bl d)on 09-18-2023 Eosinophils/100 WBC (Bld) 2.3 % 0.9-7.0 [facility] Erythrocyte distribution wid th Auto (RBC) [Ratio]on 09-18-2023 Erythrocyte distribution width (RBC) [Ratio] 18.8 % High 11.0-15.0 [facility] Estimated glomerular filtrat ion rate (GFR) non- Americanon 09-18-2023 GFR/1.73 sq M.predicted among non-blacks MDRD (S/P/Bld) [Vol rate/Area] 27 mL/min/{1.73_m2} Low >=60 [facility] Hematocrit Auto (Bld) [Volum e fraction]on 09-18-2023 Hematocrit (Bld) [Volume fraction] 35.0 % Low 42.0-54.0 [facility] Hemoglobin [Mass/volume] in Bloodon 09-18-2023 Hemoglobin (Bld) [Mass/Vol] 10.3 g/dL Low 14.0-18.0 [facility] INR in Platelet poor plasma by Coagulation assayon 09-18-2023 INR Coag (PPP) [Relative time] 1.08 {INR} [facility] Comment on above: DESIRED INR:2.0-3.0 CONDITIONS NOT LISTED BELOW2.5-3.5 FOR PROSTHETIC HEART VALVE REPLACEMENT2.5-3.5 RECURRENT THROMBOSIS Laboratory - Chemistry and C hemistry - challengeon 09-18-2023 Calcium [Mass/Vol] 8.9 mg/dL 8.5-10.1 [facility] Chloride [Moles/Vol] 97 mmol/L Low 98-107 [facility] CO2 [Moles/Vol] 28.2 mmol/L 21.0-32.0 [facility] Creatinine [Mass/Vol] 2.47 mg/dL High 0.70-1.30 [facility] GFR/1.73 sq M.predicted MDRD (S/P/Bld) [Vol rate/Area] 33 mL/min/{1.73_m2} Low >=60 [facility] Glucose [Mass/Vol] 200 mg/dL High 74-106 [facility] Potassium [Moles/Vol] 3.7 mmol/L 3.5-5.1 [facility] Sodium [Moles/Vol] 137 mmol/L 136-145 [facility] Urea nitrogen [Mass/Vol] 23.0 mg/dL High 7.0-18.0 [facility] Urea nitrogen/Creatinine [Mass ratio] 9.3 mg/mg [facility] Laboratory - Hematology and Cell countson 09-18-2023 Immature granulocytes/100 WBC (Bld) 0.6 % High 0.0-0.5 [facility] Leukocytes [#/volume] correc jorge for nucleated erythrocytes in Blood by Automated counon 09-18-2023 WBC corrected for nucl RBC Auto (Bld) [#/Vol] 12.4 10 3/uL High 4.0-11.0 [facility] Lymphocytes Auto (Bld) [#/Vo l]on 09-18-2023 Lymphocytes (Bld) [#/Vol] 2.4 10 3/uL 1.2-3.8 [facility] Lymphocytes/100 WBC Auto (Bl d)on 09-18-2023 Lymphocytes/100 WBC (Bld) 19.6 % Low 20.5-60.0 [facility] MCH Auto (RBC) [Entitic mass ]on 09-18-2023 MCH (RBC) [Entitic mass] 22.2 pg Low 25.9-34.0 [facility] MCHC Auto (RBC) [Mass/Vol]on 09-18-2023 MCHC (RBC) [Mass/Vol] 29.4 g/dL Low 29.9-35.2 [facility] MCV Auto (RBC) [Entitic vol] on 09-18-2023 MCV (RBC) [Entitic vol] 75.3 fL Low 80.0-94.0 [facility] Monocytes Auto (Bld) [#/Vol] on 09-18-2023 Monocytes (Bld) [#/Vol] 1.2 10 3/uL High 0.3-0.8 [facility] Monocytes/100 WBC Auto (Bld) on 09-18-2023 Monocytes/100 WBC (Bld) 10.0 % 1.7-12.0 [facility] Neutrophils Auto (Bld) [#/Vo l]on 09-18-2023 Neutrophils (Bld) [#/Vol] 8.2 10 3/uL High 1.4-6.5 [facility] Neutrophils/100 WBC Auto (Bl d)on 09-18-2023 Neutrophils/100 WBC (Bld) 66.6 % 43.0-75.0 [facility] No Panel Informationon 09-17 Eosinophils # (Auto) 0.3 10 3/uL 0.0-0.7 [facility] Immature Granulocyte # (Auto) 0.07 10 3/uL High 0.00-0.03 [facility] Platelet mean volume Auto (B ld) [Entitic vol]on 09-18-2023 Platelet mean volume (Bld) [Entitic vol] 10.9 fL 9.5-13.5 [facility] Platelets Auto (Bld) [#/Vol] on 09-18-2023 Platelets (Bld) [#/Vol] 300 10 3/uL 150-450 [facility] Prothrombin time (PT)on 09-03 PT Coag (PPP) [Time] 11.4 s 9.0-11.6 [facility] RBC Auto (Bld) [#/Vol]on RBC (Bld) [#/Vol] 4.65 10 6/uL Low 4.70-6.10 [facility] Serum or plasma anion gap de terminationon 09-18-2023 Anion gap [Moles/Vol] 15.5 mmol/L [facility] - Microbiology an d Antimicrobial susceptibilityOrdered By: Jenaro Lynch on 08-10-2023 Microscopic observation Gram stain Nom (Unsp spec) [facility] No Panel Informationon 08-09 Fungal Smear Result [facility] Miscellaneous Test Comment See comment [facility] Comment on above: Specimen Source: JONO TRT - Foot Right - Foot Rt - 604.000 No Panel InformationOrdered By: Jenaro Lynch on 08-10-2023 Acid Fast Culture [facility] Acid Fast Smear [facility] AFB Specimen Processing [facility] Tissue Culture [facility] Basophils Auto (Bld) [#/Vol] on 08-07-2023 Basophils (Bld) [#/Vol] 0.1 10 3/uL 0.0-0.1 [facility] Basophils/100 WBC Auto (Bld) on 08-07-2023 Basophils/100 WBC (Bld) 0.7 % 0.2-2.0 [facility] Eosinophils/100 WBC Auto (Bl d)on 08-07-2023 Eosinophils/100 WBC (Bld) 3.9 % 0.9-7.0 [facility] Erythrocyte distribution wid th Auto (RBC) [Ratio]on 08-07-2023 Erythrocyte distribution width (RBC) [Ratio] 16.9 % 11.0-15.0 [facility] Estimated glomerular filtrat ion rate (GFR) non- Americanon 08-07-2023 GFR/1.73 sq M.predicted among non-blacks MDRD (S/P/Bld) [Vol rate/Area] 42 mL/min/{1.73_m2} >=60 [facility] Globulin Calc (S) [Mass/Vol] on 08-07-2023 Globulin (S) [Mass/Vol] 4.0 g/dL [facility] Hematocrit Auto (Bld) [Volum e fraction]on 08-07-2023 Hematocrit (Bld) [Volume fraction] 31.5 % 42.0-54.0 [facility] Hemoglobin [Mass/volume] in Bloodon 08-07-2023 Hemoglobin (Bld) [Mass/Vol] 9.4 g/dL 14.0-18.0 [facility] Laboratory - Chemistry and C hemistry - challengeon 08-07-2023 Albumin [Mass/Vol] 2.1 g/dL 3.4-5.0 [facility] ALP [Catalytic activity/Vol] 144 U/L 46-116 [facility] ALT [Catalytic activity/Vol] 21 U/L 16-63 [facility] AST [Catalytic activity/Vol] 25 U/L 15-37 [facility] Bilirubin [Mass/Vol] 0.4 mg/dL 0.2-1.0 [facility] Calcium [Mass/Vol] 8.1 mg/dL 8.5-10.1 [facility] Chloride [Moles/Vol] 102 mmol/L 98-107 [facility] CO2 [Moles/Vol] 24.7 mmol/L 21.0-32.0 [facility] Creatinine [Mass/Vol] 1.70 mg/dL 0.70-1.30 [facility] GFR/1.73 sq M.predicted MDRD (S/P/Bld) [Vol rate/Area] 50 mL/min/{1.73_m2} >=60 [facility] Glucose [Mass/Vol] 188 mg/dL 74-106 [facility] Potassium [Moles/Vol] 4.6 mmol/L 3.5-5.1 [facility] Protein [Mass/Vol] 6.1 g/dL 6.4-8.2 [facility] Sodium [Moles/Vol] 135 mmol/L 136-145 [facility] Urea nitrogen [Mass/Vol] 33.0 mg/dL 7.0-18.0 [facility] Urea nitrogen/Creatinine [Mass ratio] 19.4 mg/mg [facility] Laboratory - Hematology and Cell countson 08-07-2023 Immature granulocytes/100 WBC (Bld) 0.7 % 0.0-0.5 [facility] Leukocytes [#/volume] correc jorge for nucleated erythrocytes in Blood by Automated counon 08-07-2023 WBC corrected for nucl RBC Auto (Bld) [#/Vol] 12.0 10 3/uL 4.0-11.0 [facility] Lymphocytes Auto (Bld) [#/Vo l]on 08-07-2023 Lymphocytes (Bld) [#/Vol] 1.5 10 3/uL 1.2-3.8 [facility] Lymphocytes/100 WBC Auto (Bl d)on 08-07-2023 Lymphocytes/100 WBC (Bld) 12.4 % 20.5-60.0 [facility] MCH Auto (RBC) [Entitic mass ]on 08-07-2023 MCH (RBC) [Entitic mass] 22.5 pg 25.9-34.0 [facility] MCHC Auto (RBC) [Mass/Vol]on 08-07-2023 MCHC (RBC) [Mass/Vol] 29.8 g/dL 29.9-35.2 [facility] MCV Auto (RBC) [Entitic vol] on 08-07-2023 MCV (RBC) [Entitic vol] 75.4 fL 80.0-94.0 [facility] Monocytes Auto (Bld) [#/Vol] on 08-07-2023 Monocytes (Bld) [#/Vol] 1.2 10 3/uL 0.3-0.8 [facility] Monocytes/100 WBC Auto (Bld) on 08-07-2023 Monocytes/100 WBC (Bld) 10.1 % 1.7-12.0 [facility] Neutrophils Auto (Bld) [#/Vo l]on 08-07-2023 Neutrophils (Bld) [#/Vol] 8.7 10 3/uL 1.4-6.5 [facility] Neutrophils/100 WBC Auto (Bl d)on 08-07-2023 Neutrophils/100 WBC (Bld) 72.2 % 43.0-75.0 [facility] No Panel Informationon 08-06 Eosinophils # (Auto) 0.5 10 3/uL 0.0-0.7 [facility] Immature Granulocyte # (Auto) 0.09 10 3/uL 0.00-0.03 [facility] Platelet mean volume Auto (B ld) [Entitic vol]on 08-07-2023 Platelet mean volume (Bld) [Entitic vol] 11.7 fL 9.5-13.5 [facility] Platelets Auto (Bld) [#/Vol] on 08-07-2023 Platelets (Bld) [#/Vol] 222 10 3/uL 150-450 [facility] RBC Auto (Bld) [#/Vol]on RBC (Bld) [#/Vol] 4.18 10 6/uL 4.70-6.10 [facility] Serum or plasma albumin/glob ulin mass ratioon 08-07-2023 Albumin/Globulin [Mass ratio] 0.5 {ratio} [facility] Serum or plasma anion gap de terminationon 08-07-2023 Anion gap [Moles/Vol] 12.9 mmol/L Fi [facility] Basophils Auto (Bld) [#/Vol] on 08-06-2023 Basophils (Bld) [#/Vol] 0.1 10 3/uL 0.0-0.1 [facility] Basophils/100 WBC Auto (Bld) on 08-06-2023 Basophils/100 WBC (Bld) 0.7 % 0.2-2.0 [facility] Eosinophils/100 WBC Auto (Bl d)on 08-06-2023 Eosinophils/100 WBC (Bld) 3.3 % 0.9-7.0 [facility] Erythrocyte distribution wid th Auto (RBC) [Ratio]on 08-06-2023 Erythrocyte distribution width (RBC) [Ratio] 17.0 % 11.0-15.0 [facility] Estimated glomerular filtrat ion rate (GFR) non- Americanon 08-06-2023 GFR/1.73 sq M.predicted among non-blacks MDRD (S/P/Bld) [Vol rate/Area] 36 mL/min/{1.73_m2} >=60 [facility] Globulin Calc (S) [Mass/Vol] on 08-06-2023 Globulin (S) [Mass/Vol] 4.0 g/dL [facility] Hematocrit Auto (Bld) [Volum e fraction]on 08-06-2023 Hematocrit (Bld) [Volume fraction] 30.1 % 42.0-54.0 [facility] Hemoglobin [Mass/volume] in Bloodon 08-06-2023 Hemoglobin (Bld) [Mass/Vol] 8.8 g/dL 14.0-18.0 [facility] Laboratory - Chemistry and C hemistry - challengeon 08-06-2023 Albumin [Mass/Vol] 2.0 g/dL 3.4-5.0 [facility] ALP [Catalytic activity/Vol] 127 U/L 46-116 [facility] ALT [Catalytic activity/Vol] 14 U/L 16-63 [facility] AST [Catalytic activity/Vol] 16 U/L 15-37 [facility] Bilirubin [Mass/Vol] 0.4 mg/dL 0.2-1.0 [facility] Calcium [Mass/Vol] 7.9 mg/dL 8.5-10.1 [facility] Chloride [Moles/Vol] 99 mmol/L 98-107 [facility] CO2 [Moles/Vol] 25.0 mmol/L 21.0-32.0 [facility] Creatinine [Mass/Vol] 1.95 mg/dL 0.70-1.30 [facility] GFR/1.73 sq M.predicted MDRD (S/P/Bld) [Vol rate/Area] 43 mL/min/{1.73_m2} >=60 [facility] Glucose [Mass/Vol] 297 mg/dL 74-106 [facility] Potassium [Moles/Vol] 4.4 mmol/L 3.5-5.1 [facility] Protein [Mass/Vol] 6.0 g/dL 6.4-8.2 [facility] Sodium [Moles/Vol] 133 mmol/L 136-145 [facility] Urea nitrogen [Mass/Vol] 28.0 mg/dL 7.0-18.0 [facility] Urea nitrogen/Creatinine [Mass ratio] 14.4 mg/mg [facility] Laboratory - Hematology and Cell countson 08-06-2023 Immature granulocytes/100 WBC (Bld) 0.4 % 0.0-0.5 [facility] Leukocytes [#/volume] correc jorge for nucleated erythrocytes in Blood by Automated counon 08-06-2023 WBC corrected for nucl RBC Auto (Bld) [#/Vol] 10.1 10 3/uL 4.0-11.0 [facility] Lymphocytes Auto (Bld) [#/Vo l]on 08-06-2023 Lymphocytes (Bld) [#/Vol] 1.5 10 3/uL 1.2-3.8 [facility] Lymphocytes/100 WBC Auto (Bl d)on 08-06-2023 Lymphocytes/100 WBC (Bld) 14.4 % 20.5-60.0 [facility] MCH Auto (RBC) [Entitic mass ]on 08-06-2023 MCH (RBC) [Entitic mass] 22.5 pg 25.9-34.0 [facility] MCHC Auto (RBC) [Mass/Vol]on 08-06-2023 MCHC (RBC) [Mass/Vol] 29.2 g/dL 29.9-35.2 [facility] MCV Auto (RBC) [Entitic vol] on 08-06-2023 MCV (RBC) [Entitic vol] 77.0 fL 80.0-94.0 [facility] Monocytes Auto (Bld) [#/Vol] on 08-06-2023 Monocytes (Bld) [#/Vol] 1.1 10 3/uL 0.3-0.8 [facility] Monocytes/100 WBC Auto (Bld) on 08-06-2023 Monocytes/100 WBC (Bld) 10.4 % 1.7-12.0 [facility] Neutrophils Auto (Bld) [#/Vo l]on 08-06-2023 Neutrophils (Bld) [#/Vol] 7.2 10 3/uL 1.4-6.5 [facility] Neutrophils/100 WBC Auto (Bl d)on 08-06-2023 Neutrophils/100 WBC (Bld) 70.8 % 43.0-75.0 [facility] No Panel Informationon 08-05 Vancomycin Level Trough 13.6 ug/mL 5.0-20.0 [facility] Eosinophils # (Auto) 0.3 10 3/uL 0.0-0.7 [facility] Immature Granulocyte # (Auto) 0.04 10 3/uL 0.00-0.03 [facility] Platelet mean volume Auto (B ld) [Entitic vol]on 08-06-2023 Platelet mean volume (Bld) [Entitic vol] 12.2 fL 9.5-13.5 [facility] Platelets Auto (Bld) [#/Vol] on 08-06-2023 Platelets (Bld) [#/Vol] 190 10 3/uL 150-450 [facility] RBC Auto (Bld) [#/Vol]on RBC (Bld) [#/Vol] 3.91 10 6/uL 4.70-6.10 [facility] Serum or plasma albumin/glob ulin mass ratioon 08-06-2023 Albumin/Globulin [Mass ratio] 0.5 {ratio} [facility] Serum or plasma anion gap de terminationon 08-06-2023 Anion gap [Moles/Vol] 13.4 mmol[facility] Automated epithelial cells c ount in urine sediment (number/area)on 08-05-2023 Epithelial cells Auto (Urine sed) [#/Area] RARE #/LPF NONE/RARE [facility] Automated leukocytes count i n urine sediment (number/area)on 08-05-2023 WBC Auto (Urine sed) [#/Area] NONE SEEN #/HPF 0-2 [facility] Automated urine specific gra vity by refractometryon 08-05-2023 Specific gravity Refractometry automated (U) [Rel density] <=1.005 1.005-1.02 5 [facility] Basophils Auto (Bld) [#/Vol] on 08-05-2023 Basophils (Bld) [#/Vol] 0.1 10 3/uL 0.0-0.1 [facility] Basophils/100 WBC Auto (Bld) on 08-05-2023 Basophils/100 WBC (Bld) 0.7 % 0.2-2.0 [facility] Bilirubin Auto test strip (U ) [Mass/Vol]on 08-05-2023 Bilirubin (U) [Mass/Vol] Negative NEGATIVE [facility] Casts typing in urine sedime nt by light microscopyon 08-05-2023 Casts LM Nom (Urine sed) NONE SEEN #/LPF NONE SEEN [facility] Color Auto (U)on 08-05-2023 Color (U) LT. YELLOW YELLOW [facility] Eosinophils/100 WBC Auto (Bl d)on 08-05-2023 Eosinophils/100 WBC (Bld) 2.5 % 0.9-7.0 [facility] Erythrocyte distribution wid th Auto (RBC) [Ratio]on 08-05-2023 Erythrocyte distribution width (RBC) [Ratio] 16.8 % 11.0-15.0 [facility] Estimated glomerular filtrat ion rate (GFR) non- Americanon 08-05-2023 GFR/1.73 sq M.predicted among non-blacks MDRD (S/P/Bld) [Vol rate/Area] 42 mL/min/{1.73_m2} >=60 [facility] Globulin Calc (S) [Mass/Vol] on 08-05-2023 Globulin (S) [Mass/Vol] 4.1 g/dL [facility] Glucose mean value [Mass/vol ume] in Blood Estimated from glycated hemoglobinon 08-05-2023 Average glucose Estimated from glycated hemoglobin (Bld) [Mass/Vol] 214 mg/dL [facility] Hematocrit Auto (Bld) [Volum e fraction]on 08-05-2023 Hematocrit (Bld) [Volume fraction] 31.8 % 42.0-54.0 [facility] Hemoglobin [Mass/volume] in Bloodon 08-05-2023 Hemoglobin (Bld) [Mass/Vol] 9.4 g/dL 14.0-18.0 [facility] Ketones Auto test strip (U) [Mass/Vol]on 08-05-2023 Ketones (U) [Mass/Vol] Negative NEGATIVE [facility] Laboratory - Chemistry and C hemistry - challengeon 08-05-2023 Albumin [Mass/Vol] 2.3 g/dL 3.4-5.0 [facility] ALP [Catalytic activity/Vol] 111 U/L 46-116 [facility] ALT [Catalytic activity/Vol] 11 U/L 16-63 [facility] AST [Catalytic activity/Vol] 11 U/L 15-37 [facility] Bilirubin [Mass/Vol] 0.5 mg/dL 0.2-1.0 [facility] Calcium [Mass/Vol] 8.1 mg/dL 8.5-10.1 [facility] Chloride [Moles/Vol] 101 mmol/L 98-107 [facility] CO2 [Moles/Vol] 25.6 mmol/L 21.0-32.0 [facility] Creatinine [Mass/Vol] 1.68 mg/dL 0.70-1.30 [facility] GFR/1.73 sq M.predicted MDRD (S/P/Bld) [Vol rate/Area] 51 mL/min/{1.73_m2} >=60 [facility] Glucose [Mass/Vol] 111 mg/dL 74-106 [facility] Potassium [Moles/Vol] 3.7 mmol/L 3.5-5.1 [facility] Protein [Mass/Vol] 6.4 g/dL 6.4-8.2 [facility] Sodium [Moles/Vol] 138 mmol/L 136-145 [facility] Urea nitrogen [Mass/Vol] 17.0 mg/dL 7.0-18.0 [facility] Urea nitrogen/Creatinine [Mass ratio] 10.1 mg/mg [facility] Laboratory - Hematology and Cell countson 08-05-2023 HbA1c (Bld) [Mass fraction] 9.1 % 4.5-6.2 [facility] Comment on above: ADA RECOMMENDED LIMI T 4.0 - 6.0ADA THERAPEUTIC TARGET < 7.0ACTION SUGGESTED> 7.0 Immature granulocytes/100 WBC (Bld) 0.4 % 0.0-0.5 [facility] Laboratory - Microbiology an d Antimicrobial susceptibilityOrdered By: Jenaro Lynch on 08-05-2023 Microscopic observation Gram stain Nom (Unsp spec) [facility] Leukocytes [#/volume] correc jorge for nucleated erythrocytes in Blood by Automated counon 08-05-2023 WBC corrected for nucl RBC Auto (Bld) [#/Vol] 12.3 10 3/uL 4.0-11.0 [facility] Lymphocytes Auto (Bld) [#/Vo l]on 08-05-2023 Lymphocytes (Bld) [#/Vol] 1.5 10 3/uL 1.2-3.8 [facility] Lymphocytes/100 WBC Auto (Bl d)on 08-05-2023 Lymphocytes/100 WBC (Bld) 11.8 % 20.5-60.0 [facility] MCH Auto (RBC) [Entitic mass ]on 08-05-2023 MCH (RBC) [Entitic mass] 22.4 pg 25.9-34.0 [facility] MCHC Auto (RBC) [Mass/Vol]on 08-05-2023 MCHC (RBC) [Mass/Vol] 29.6 g/dL 29.9-35.2 [facility] MCV Auto (RBC) [Entitic vol] on 08-05-2023 MCV (RBC) [Entitic vol] 75.9 fL 80.0-94.0 [facility] Monocytes Auto (Bld) [#/Vol] on 08-05-2023 Monocytes (Bld) [#/Vol] 1.3 10 3/uL 0.3-0.8 [facility] Monocytes/100 WBC Auto (Bld) on 08-05-2023 Monocytes/100 WBC (Bld) 10.7 % 1.7-12.0 [facility] Mucus LM Ql (Urine sed)on Mucus Ql (Urine sed) NONE SEEN NONE SEEN [facility] Neutrophils Auto (Bld) [#/Vo l]on 08-05-2023 Neutrophils (Bld) [#/Vol] 9.1 10 3/uL 1.4-6.5 [facility] Neutrophils/100 WBC Auto (Bl d)on 08-05-2023 Neutrophils/100 WBC (Bld) 73.9 % 43.0-75.0 [facility] No Panel Informationon 08-04 Eosinophils # (Auto) 0.3 10 3/uL 0.0-0.7 [facility] Immature Granulocyte # (Auto) 0.05 10 3/uL 0.00-0.03 [facility] Platelet mean volume Auto (B ld) [Entitic vol]on 08-05-2023 Platelet mean volume (Bld) [Entitic vol] 11.2 fL 9.5-13.5 [facility] Platelets Auto (Bld) [#/Vol] on 08-05-2023 Platelets (Bld) [#/Vol] 184 10 3/uL 150-450 [facility] Protein Auto test strip (U) [Mass/Vol]on 08-05-2023 Protein (U) [Mass/Vol] Negative NEG/TRACE [facility] RBC Auto (Bld) [#/Vol]on RBC (Bld) [#/Vol] 4.19 10 6/uL 4.70-6.10 [facility] Serum or plasma albumin/glob ulin mass ratioon 08-05-2023 Albumin/Globulin [Mass ratio] 0.6 {ratio} [facility] Serum or plasma anion gap de terminationon 08-05-2023 Anion gap [Moles/Vol] 15.1 mmol/L Fi [facility] Specific gravity Auto test s trip (U) [Rel density]on 08-05-2023 Specific gravity (U) [Rel density] CLEAR CLEAR [facility] Urine bacteria detection by automated methodon 08-05-2023 Bacteria Auto Ql (U) TRACE #/HPF NONE SEEN [facility] Urine glucose measurement by test strip (mass/volume)on 08-05-2023 Glucose Test strip (U) [Mass/Vol] >=1000 mg/dL NEGATIVE [facility] Urine hemoglobin detection b y automated test stripon 08-05-2023 Hemoglobin Auto test strip Ql (U) Negative NEGATIVE [facility] Urine nitrite detection by a utomated test stripon 08-05-2023 Nitrite Auto test strip Ql (U) Negative NEGATIVE [facility] Urine sediment crystal ident ification by light microscopyon 08-05-2023 Crystals LM Nom (Urine sed) None Seen #/HPF None Seen [facility] Urine sediment leukocyte cou nt by microscopy (number/high power field)on 08-05-2023 WBC LM.HPF (Urine sed) [#/Area] NONE SEEN #/HPF NONE SEEN [facility] Urobilinogen Auto test strip (U) [Mass/Vol]on 08-05-2023 Urobilinogen Qn (U) 0.2 {Brednan'U}/dL 0.2-1.0 [facility] pH Auto test strip (U)on pH (U) 6.0 [pH] 5.0-9.0 [facility] Basophils Auto (Bld) [#/Vol] on 08-04-2023 Basophils (Bld) [#/Vol] 0.1 10 3/uL 0.0-0.1 [facility] Basophils/100 WBC Auto (Bld) on 08-04-2023 Basophils/100 WBC (Bld) 0.8 % 0.2-2.0 [facility] Eosinophils/100 WBC Auto (Bl d)on 08-04-2023 Eosinophils/100 WBC (Bld) 2.8 % 0.9-7.0 [facility] Erythrocyte distribution wid th Auto (RBC) [Ratio]on 08-04-2023 Erythrocyte distribution width (RBC) [Ratio] 16.9 % 11.0-15.0 [facility] Estimated glomerular filtrat ion rate (GFR) non- Americanon 08-04-2023 GFR/1.73 sq M.predicted among non-blacks MDRD (S/P/Bld) [Vol rate/Area] 33 mL/min/{1.73_m2} >=60 [facility] Globulin Calc (S) [Mass/Vol] on 08-04-2023 Globulin (S) [Mass/Vol] 4.4 g/dL [facility] Hematocrit Auto (Bld) [Volum e fraction]on 08-04-2023 Hematocrit (Bld) [Volume fraction] 32.6 % 42.0-54.0 [facility] Hemoglobin [Mass/volume] in Bloodon 08-04-2023 Hemoglobin (Bld) [Mass/Vol] 9.6 g/dL 14.0-18.0 [facility] INR in Platelet poor plasma by Coagulation assayon 08-04-2023 INR Coag (PPP) [Relative time] 1.05 {INR} [facility] Comment on above: DESIRED INR:2.0-3.0 CONDITIONS NOT LISTED BELOW2.5-3.5 FOR PROSTHETIC HEART VALVE REPLACEMENT2.5-3.5 RECURRENT THROMBOSIS Laboratory - Chemistry and C hemistry - challengeon 08-04-2023 Albumin [Mass/Vol] 2.4 g/dL 3.4-5.0 [facility] ALP [Catalytic activity/Vol] 109 U/L 46-116 [facility] ALT [Catalytic activity/Vol] 9 U/L 16-63 [facility] AST [Catalytic activity/Vol] U/L 15-37 [facility] Bilirubin [Mass/Vol] 0.4 mg/dL 0.2-1.0 [facility] Calcium [Mass/Vol] 8.0 mg/dL 8.5-10.1 [facility] Chloride [Moles/Vol] 96 mmol/L 98-107 [facility] CO2 [Moles/Vol] 29.2 mmol/L 21.0-32.0 [facility] Creatinine [Mass/Vol] 2.06 mg/dL 0.70-1.30 [facility] GFR/1.73 sq M.predicted MDRD (S/P/Bld) [Vol rate/Area] 40 mL/min/{1.73_m2} >=60 [facility] Glucose [Mass/Vol] 329 mg/dL 74-106 [facility] Potassium [Moles/Vol] 3.5 mmol/L 3.5-5.1 [facility] Protein [Mass/Vol] 6.8 g/dL 6.4-8.2 [facility] Sodium [Moles/Vol] 132 mmol/L 136-145 [facility] Urea nitrogen [Mass/Vol] 20.0 mg/dL 7.0-18.0 [facility] Urea nitrogen/Creatinine [Mass ratio] 9.7 mg/mg [facility] Laboratory - Hematology and Cell countson 08-04-2023 ESR (Bld) [Velocity] 89 mm/h <=20 [facility] Immature granulocytes/100 WBC (Bld) 0.3 % 0.0-0.5 [facility] Laboratory - Microbiology an d Antimicrobial susceptibilityOrdered By: Jenaro Lynch on 08-04-2023 Microscopic observation Gram stain Nom (Unsp spec) [facility] Leukocytes [#/volume] correc jorge for nucleated erythrocytes in Blood by Automated counon 08-04-2023 WBC corrected for nucl RBC Auto (Bld) [#/Vol] 11.6 10 3/uL 4.0-11.0 [facility] Lymphocytes Auto (Bld) [#/Vo l]on 08-04-2023 Lymphocytes (Bld) [#/Vol] 1.7 10 3/uL 1.2-3.8 [facility] Lymphocytes/100 WBC Auto (Bl d)on 08-04-2023 Lymphocytes/100 WBC (Bld) 14.9 % 20.5-60.0 [facility] MCH Auto (RBC) [Entitic mass ]on 08-04-2023 MCH (RBC) [Entitic mass] 22.3 pg 25.9-34.0 [facility] MCHC Auto (RBC) [Mass/Vol]on 08-04-2023 MCHC (RBC) [Mass/Vol] 29.4 g/dL 29.9-35.2 [facility] MCV Auto (RBC) [Entitic vol] on 08-04-2023 MCV (RBC) [Entitic vol] 75.8 fL 80.0-94.0 [facility] Monocytes Auto (Bld) [#/Vol] on 08-04-2023 Monocytes (Bld) [#/Vol] 1.2 10 3/uL 0.3-0.8 [facility] Monocytes/100 WBC Auto (Bld) on 08-04-2023 Monocytes/100 WBC (Bld) 10.4 % 1.7-12.0 [facility] Neutrophils Auto (Bld) [#/Vo l]on 08-04-2023 Neutrophils (Bld) [#/Vol] 8.2 10 3/uL 1.4-6.5 [facility] Neutrophils/100 WBC Auto (Bl d)on 08-04-2023 Neutrophils/100 WBC (Bld) 70.8 % 43.0-75.0 [facility] No Panel InformationOrdered By: Jenaro Lynch on 08-04-2023 Blood Culture 2 [facility] Blood Culture 1 [facility] Wound Culture [facility] No Panel Informationon 08-03 Aerobic & Anaerobic Susceptibility [facility] Miscellaneous Test Comment See comment [facility] Comment on above: Specimen Source: JONO T - Foot - Foot - 603.950 C-Reactive Protein, Quantitative 11.62 mg/dL <=0.50 [facility] Eosinophils # (Auto) 0.3 10 3/uL 0.0-0.7 [facility] Immature Granulocyte # (Auto) 0.04 10 3/uL 0.00-0.03 [facility] Platelet mean volume Auto (B ld) [Entitic vol]on 08-04-2023 Platelet mean volume (Bld) [Entitic vol] 11.5 fL 9.5-13.5 [facility] Platelets Auto (Bld) [#/Vol] on 08-04-2023 Platelets (Bld) [#/Vol] 206 10 3/uL 150-450 [facility] Prothrombin time (PT)on PT Coag (PPP) [Time] 11.1 s 9.0-11.6 [facility] RBC Auto (Bld) [#/Vol]on RBC (Bld) [#/Vol] 4.30 10 6/uL 4.70-6.10 [facility] Serum or plasma albumin/glob ulin mass ratioon 08-04-2023 Albumin/Globulin [Mass ratio] 0.5 {ratio} [facility] Serum or plasma anion gap de terminationon 08-04-2023 Anion gap [Moles/Vol] 10.3 mmol[facility] Serum procalcitonin measurem enton 08-04-2023 Procalcitonin [Mass/Vol] 0.10 ng/mL 0.00-0.50 [facility] Basophils Auto (Bld) [#/Vol] on 08-03-2023 Basophils (Bld) [#/Vol] 0.1 10 3/uL 0.0-0.1 [facility] Basophils/100 WBC Auto (Bld) on 08-03-2023 Basophils/100 WBC (Bld) 0.7 % 0.2-2.0 [facility] Eosinophils/100 WBC Auto (Bl d)on 08-03-2023 Eosinophils/100 WBC (Bld) 1.8 % 0.9-7.0 [facility] Erythrocyte distribution wid th Auto (RBC) [Ratio]on 08-03-2023 Erythrocyte distribution width (RBC) [Ratio] 17.0 % 11.0-15.0 [facility] Estimated glomerular filtrat ion rate (GFR) non- Americanon 08-03-2023 GFR/1.73 sq M.predicted among non-blacks MDRD (S/P/Bld) [Vol rate/Area] 27 mL/min/{1.73_m2} >=60 [facility] Globulin Calc (S) [Mass/Vol] on 08-03-2023 Globulin (S) [Mass/Vol] 5.0 g/dL [facility] Hematocrit Auto (Bld) [Volum e fraction]on 08-03-2023 Hematocrit (Bld) [Volume fraction] 38.9 % 42.0-54.0 [facility] Hemoglobin [Mass/volume] in Bloodon 08-03-2023 Hemoglobin (Bld) [Mass/Vol] 11.8 g/dL 14.0-18.0 [facility] Laboratory - Chemistry and C hemistry - challengeon 08-03-2023 Lactate [Moles/Vol] 1.6 mmol/L 0.4-2.0 [facility] Albumin [Mass/Vol] 3.3 g/dL 3.4-5.0 [facility] ALP [Catalytic activity/Vol] 134 U/L 46-116 [facility] ALT [Catalytic activity/Vol] 13 U/L 16-63 [facility] AST [Catalytic activity/Vol] U/L 15-37 [facility] Bilirubin [Mass/Vol] 0.6 mg/dL 0.2-1.0 [facility] Calcium [Mass/Vol] 9.3 mg/dL 8.5-10.1 [facility] Chloride [Moles/Vol] 92 mmol/L 98-107 [facility] CO2 [Moles/Vol] 31.0 mmol/L 21.0-32.0 [facility] Creatinine [Mass/Vol] 2.45 mg/dL 0.70-1.30 [facility] GFR/1.73 sq M.predicted MDRD (S/P/Bld) [Vol rate/Area] 33 mL/min/{1.73_m2} >=60 [facility] Glucose [Mass/Vol] 310 mg/dL 74-106 [facility] Potassium [Moles/Vol] 3.7 mmol/L 3.5-5.1 [facility] Protein [Mass/Vol] 8.3 g/dL 6.4-8.2 [facility] Sodium [Moles/Vol] 133 mmol/L 136-145 [facility] Urea nitrogen [Mass/Vol] 23.0 mg/dL 7.0-18.0 [facility] Urea nitrogen/Creatinine [Mass ratio] 9.4 mg/mg [facility] Laboratory - Hematology and Cell countson 08-03-2023 ESR (Bld) [Velocity] 118 mm/h <=20 [facility] Immature granulocytes/100 WBC (Bld) 0.4 % 0.0-0.5 [facility] Leukocytes [#/volume] correc jorge for nucleated erythrocytes in Blood by Automated counon 08-03-2023 WBC corrected for nucl RBC Auto (Bld) [#/Vol] 14.6 10 3/uL 4.0-11.0 [facility] Lymphocytes Auto (Bld) [#/Vo l]on 08-03-2023 Lymphocytes (Bld) [#/Vol] 2.1 10 3/uL 1.2-3.8 [facility] Lymphocytes/100 WBC Auto (Bl d)on 08-03-2023 Lymphocytes/100 WBC (Bld) 14.3 % 20.5-60.0 [facility] MCH Auto (RBC) [Entitic mass ]on 08-03-2023 MCH (RBC) [Entitic mass] 22.6 pg 25.9-34.0 [facility] MCHC Auto (RBC) [Mass/Vol]on 08-03-2023 MCHC (RBC) [Mass/Vol] 30.3 g/dL 29.9-35.2 [facility] MCV Auto (RBC) [Entitic vol] on 08-03-2023 MCV (RBC) [Entitic vol] 74.4 fL 80.0-94.0 [facility] Monocytes Auto (Bld) [#/Vol] on 08-03-2023 Monocytes (Bld) [#/Vol] 1.4 10 3/uL 0.3-0.8 [facility] Monocytes/100 WBC Auto (Bld) on 08-03-2023 Monocytes/100 WBC (Bld) 9.4 % 1.7-12.0 [facility] Neutrophils Auto (Bld) [#/Vo l]on 08-03-2023 Neutrophils (Bld) [#/Vol] 10.7 10 3/uL 1.4-6.5 [facility] Neutrophils/100 WBC Auto (Bl d)on 08-03-2023 Neutrophils/100 WBC (Bld) 73.4 % 43.0-75.0 [facility] No Panel Informationon C-Reactive Protein, Quantitative 14.63 mg/dL <=0.50 [facility] Eosinophils # (Auto) 0.3 10 3/uL 0.0-0.7 [facility] Immature Granulocyte # (Auto) 0.06 10 3/uL 0.00-0.03 [facility] Venous Blood Partial Pressure CO2 44.8 mm[Hg] 40.0-52.0 [facility] Venous Blood pH 7.432 7.330-7.43 0 [facility] No Panel InformationOrdered By: Jenaro Lynch on 08-03-2023 Blood Culture 2 [facility] Blood Culture 1 [facility] Platelet mean volume Auto (B ld) [Entitic vol]on 08-03-2023 Platelet mean volume (Bld) [Entitic vol] 11.4 fL 9.5-13.5 [facility] Platelets Auto (Bld) [#/Vol] on 08-03-2023 Platelets (Bld) [#/Vol] 252 10 3/uL 150-450 [facility] RBC Auto (Bld) [#/Vol]on RBC (Bld) [#/Vol] 5.23 10 6/uL 4.70-6.10 [facility] Serum or plasma albumin/glob ulin mass ratioon 08-03-2023 Albumin/Globulin [Mass ratio] 0.7 {ratio} [facility] Serum or plasma anion gap de terminationon 08-03-2023 Anion gap [Moles/Vol] 13.7 mmol/L Fi [facility] US venous duplex LE BIon US venous duplex LE BI [facility] [place] [address] Ultrasound Report Signed Patient: Solomon Feldman SR MR#: [id number] : 1965 Acct:[id number] Age/Sex: 57 / M ADM Date: 07/12/23 Loc: ER Room: Type: [facility] ER Attending Dr: Ordering Provider: Nancy Wilson [...] Howard Boss MD07/13/2023 11:56 AM Dictation Location: [place] [address] Tech: Nancy Pantoja Transcribed By: BOB 07/13/23 1156 Dictated By: Howard Boss MD 07/13/23 1156 Signed By: 07/13/23 1156 Normal [facility] US venous duplex UE LTon US venous duplex UE LT [facility] Main [place] [id number] Ultrasound Report Signed Patient: Solomon Feldman SR MR#: [id number] : 1965 Acct:[id number] Age/Sex: 57 / M ADM Date: 07/12/23 Loc: ER Room: Type: [facility] ER Attending Dr: Ordering Provider: Nancy Wilson [...] Howard Boss MD07/13/2023 11:56 AM Dictation Location: [place] [address] Tech: Nancy Pantoja Transcribed By: BOB 07/13/23 1156 Dictated By: Howard Boss MD 07/13/23 1155 Signed By: 07/13/23 1156 Normal [facility] Activated partial thrombopla stin time (aPTT) in platelet poor plasma by coagulation aOrdered By: Nancy Wilson on 07-12-2023 aPTT Coag (PPP) [Time] 29.4 s 25.1-36.5 [facility] Comment on above: A hematocrit value g reater than 55% may lead to inaccurate results in coagulation testing. Patients having hematocrit values >55% require a special collection tube for coagulation studies. Please contact the laboratory at [phone] for redraw instructions. Alanine aminotransferase [En zymatic activity/volume] in Serum or PlasmaOrdered By: Nancy Wilson on 07-12-2023 ALT [Catalytic activity/Vol] 9 U/L Normal 7-52 [facility] Comment on above: Performed By: #### P TT, CBC, PT, BNP, CMP, HS TROP, CK #### [address] Albumin [Mass/volume] in Ser um or Plasma by Bromocresol green (BCG) dye binding methoOrdered By: Nancy Wilson on 07-12-2023 Albumin BCG dye [Mass/Vol] 3.9 g/dL 3.5-5.7 [facility] Alkaline phosphatase [Enzyma tic activity/volume] in Serum or PlasmaOrdered By: Nancy Wilson on 07-12-2023 ALP [Catalytic activity/Vol] 106 U/L High 34-104 [facility] Comment on above: Performed By: #### P TT, CBC, PT, BNP, CMP, HS TROP, CK #### [facility] [address] [place] [address] Aspartate aminotransferase [ Enzymatic activity/volume] in Serum or PlasmaOrdered By: Nancy Wilson on 07-12-2023 AST [Catalytic activity/Vol] 8 U/L Low 13-39 [facility] Comment on above: Performed By: #### P TT, CBC, PT, BNP, CMP, HS TROP, CK #### [address] Automated basophil %Ordered By: Nancy Wilson on 07-12-2023 Basophils/100 WBC (Bld) 1.1 % Normal . [facility] Comment on above: Performed By: #### P TT, CBC, PT, BNP, CMP, HS TROP, CK #### [facility] [address] [place] [address] Automated basophil countOrde red By: Nancy Wilson on 07-12-2023 Basophils (Bld) [#/Vol] 0.1 10*3/uL Normal 0.0-0.2 [facility] Comment on above: Result Comment: PERF ORMED BY: [place] [address] PATHOLOGIST [employer]OOD HATCHERY MANAGER CLIFFORD LOBATO M.D. Performed By: #### P TT, CBC, PT, BNP, CMP, HS TROP, CK #### [address] Automated blood monocyte cou ntOrdered By: Nancy Wilson on 07-12-2023 Monocytes (Bld) [#/Vol] 1.0 10*3/uL High 0.0-0.8 [facility] Comment on above: Performed By: #### P TT, CBC, PT, BNP, CMP, HS TROP, CK #### [address] Automated eosinophil %Ordere d By: Nancy Wilson on 07-12-2023 Eosinophils/100 WBC (Bld) 3.3 % Normal . [facility] Comment on above: Performed By: #### P TT, CBC, PT, BNP, CMP, HS TROP, CK #### [address] Automated eosinophil countOr dered By: Nancy Wilson on 07-12-2023 Eosinophils (Bld) [#/Vol] 0.3 10*3/uL Normal 0.0-0.45 [facility] Comment on above: Performed By: #### P TT, CBC, PT, BNP, CMP, HS TROP, CK #### [address] Automated monocyte %Ordered By: Nancy Wilson on 07-12-2023 Monocytes/100 WBC (Bld) 10.2 % Normal . [facility] Comment on above: Performed By: #### P TT, CBC, PT, BNP, CMP, HS TROP, CK #### [address] Automated neutrophil %Ordere d By: Nancy Wilson on 07-12-2023 Neutrophils/100 WBC (Bld) 65.4 % Normal . [facility] Comment on above: Performed By: #### P TT, CBC, PT, BNP, CMP, HS TROP, CK #### [address] BNP ser/plasOrdered By: Laith Wilson on 07-12-2023 Natriuretic peptide B (Bld) [Mass/Vol] 34.0 pg/mL Normal 5-100 [facility] Comment on above: Result Comment: PERF ORMED BY: [place] [address] PATHOLOGIST BROOD HATCHERY MANAGER CLIFFORD LOBATO M.D. Performed By: #### P TT, CBC, PT, BNP, CMP, HS TROP, CK #### [address] Bilirubin.total [Mass/volume ] in Serum or PlasmaOrdered By: Nancy Wilson on 07-12-2023 Bilirubin [Mass/Vol] 0.4 mg/dL Normal 0.3-1.0 [facility] Comment on above: Performed By: #### P TT, CBC, PT, BNP, CMP, HS TROP, CK #### [address] Calcium [Mass/volume] in Ser um or PlasmaOrdered By: Nancy Wilson on 07-12-2023 Calcium [Mass/Vol] 8.5 mg/dL Low 8.6-10.3 [facility] Comment on above: Performed By: #### P TT, CBC, PT, BNP, CMP, HS TROP, CK #### [place] [address] [place] Carbon dioxide, total [Moles /volume] in Serum or PlasmaOrdered By: Nancy Wilson on 07-12-2023 CO2 [Moles/Vol] 24.5 mmol/L Normal 21.0-31.0 [facility] Comment on above: Performed By: #### P TT, CBC, PT, BNP, CMP, HS TROP, CK #### [facility] [address] [place] [address] [place] Chloride [Moles/volume] in S ilia or PlasmaOrdered By: Nancy Wilson on 07-12-2023 Chloride [Moles/Vol] 102 mmol/L Normal 98-107 [facility] Comment on above: Performed By: #### P TT, CBC, PT, BNP, CMP, HS TROP, CK #### [address] Complete Blood Count Auto Di ffon 07-12-2023 Mean Corpuscular HGB Conc 32.4 g/dL Low 32.5-35.6 [facility] Comment on above: Performed By: #### P TT, CBC, PT, BNP, CMP, HS TROP, CK #### [address] Monocytes/100 WBC (Bld) 18.12 % Normal 0.00-20.00 [facility] Comment on above: Performed By: #### P TT, CBC, PT, BNP, CMP, HS TROP, CK #### [address] NRBC% 0.1 /100{WBC} Normal 0-0.5 [facility] Comment on above: Performed By: #### P TT, CBC, PT, BNP, CMP, HS TROP, CK #### [address] Comprehensive Metabolic Pane guy 07-12-2023 Albumin [Mass/Vol] 3.9 g/dL Normal 3.5-5.7 [facility] Comment on above: Performed By: #### P TT, CBC, PT, BNP, CMP, HS TROP, CK #### [address] Creatinine Clr Calc Pharmacy 54.64 Normal [facility] Comment on above: Result Comment: PERF ORMED BY: [place] [address] PATHOLOGIST BROOD HATCHERY MANAGER CLIFFORD LOBATO M.D. Performed By: #### P TT, CBC, PT, BNP, CMP, HS TROP, CK #### [address] GFR/1.73 sq M.predicted MDRD (S/P/Bld) [Vol rate/Area] 42.789 mL/min/{1.73_m2} Normal [facility] Comment on above: Performed By: #### P TT, CBC, PT, BNP, CMP, HS TROP, CK #### [facility] [address] Creatine kinase [Enzymatic a ctivity/volume] in Serum or PlasmaOrdered By: Nancy Wilson on 07-12-2023 CK [Catalytic activity/Vol] 55 U/L Normal 30-223 [facility] Comment on above: Performed By: #### P TT, CBC, PT, BNP, CMP, HS TROP, CK #### [facility] [address] Creatinine [Mass/volume] in Serum or PlasmaOrdered By: Nancy Wilson on 07-12-2023 Creatinine [Mass/Vol] 1.82 mg/dL High 0.70-1.30 [facility] Comment on above: Performed By: #### P TT, CBC, PT, BNP, CMP, HS TROP, CK #### [facility] [address] ECG 12 lead ECGon 07-12-2023 ECG 12 lead ECG [facility] [place] [address] [place] [address] Electrocardiograph Report Signed Patient: Solomon Feldman SR MR#: [id number] : 1965 Acct:[id number] Age/Sex: 57 / M ADM Date: 07/12/23 Loc: ER Room: Type: [facility] ER Attending Dr: Ordering Provider: Nancy Wilson [...] Nancy Wilson MD 01/26 0135 Normal [facility] Erythrocyte distribution wid th [Ratio] by Automated countOrdered By: Nancy Wilson on 07-12-2023 Erythrocyte distribution width (RBC) [Ratio] 17.1 % High 12.0-14.8 [facility] Comment on above: Performed By: #### P TT, CBC, PT, BNP, CMP, HS TROP, CK #### [facility] [address] Erythrocytes [#/volume] in B lood by Automated countOrdered By: Nancy Wilson on 07-12-2023 RBC (Bld) [#/Vol] 4.63 10*6/uL Normal 3.90-5.60 [facility] Comment on above: Performed By: #### P TT, CBC, PT, BNP, CMP, HS TROP, CK #### [facility] [address] Glucose [Mass/volume] in Ser um or PlasmaOrdered By: Nancy Wilson on 07-12-2023 Glucose [Mass/Vol] 302 mg/dL High 70-100 [facility] Comment on above: ADA recommended refe rence rangeRandom Glucose Reference Range is dependent on time and content of last meal. Glucose of more than 200 mg/dL in a nonstressed, ambulatory subject supports the diagnosis of Diabetes Mellitus. Result Comment: [place] om Glucose Reference Range is dependent on time and content of last meal. Glucose of more than 200 mg/dL in a nonstressed, ambulatory subject supports the diagnosis of Diabetes Mellitus. ADA recommended reference range Performed By: #### P TT, CBC, PT, BNP, CMP, HS TROP, CK #### [facility] [address] [place] [address] [place] Hematocrit [Volume Fraction] of Blood by Automated countOrdered By: Nancy Wilson on 07-12-2023 Hematocrit (Bld) [Volume fraction] 32.7 % Low 38.8-50.0 [facility] Comment on above: Performed By: #### P TT, CBC, PT, BNP, CMP, HS TROP, CK #### [facility] [address] Hemoglobin [Mass/volume] in BloodOrdered By: Nancy Wilson on 07-12-2023 Hemoglobin (Bld) [Mass/Vol] 10.6 g/dL Low 13.0-17.0 [facility] Comment on above: Performed By: #### P TT, CBC, PT, BNP, CMP, HS TROP, CK #### [facility] [address] INR in Platelet poor plasma by Coagulation assayOrdered By: Nancy Wilson on 07-12-2023 INR Coag (PPP) [Relative time] 1.1 {INR} Normal [facility] Comment on above: INR Therapeutic Rang e [...] PT, BNP, CMP, HS TROP, CK #### [facility] [address] Leukocytes [#/volume] correc jorge for nucleated erythrocytes in Blood by Automated counOrdered By: Nancy Wilson on 07-12-2023 WBC corrected for nucl RBC Auto (Bld) [#/Vol] 9.5 10*3/uL 4.1-10.5 [facility] Leukocytes [#/volume] in Blo od by Automated countOrdered By: Nancy Wilson on 07-12-2023 WBC (Bld) [#/Vol] 9.5 10*3/uL Normal 4.1-10.5 [facility] Comment on above: Performed By: #### P TT, CBC, PT, BNP, CMP, HS TROP, CK #### [facility] [address] [place] [address] Lymphocytes [#/volume] in Bl ood by Automated countOrdered By: Nancy Wilson on 07-12-2023 Lymphocytes (Bld) [#/Vol] 1.9 10*3/uL Normal 1.00-4.8 [facility] Comment on above: Performed By: #### P TT, CBC, PT, BNP, CMP, HS TROP, CK #### [facility] [address] Lymphocytes/100 leukocytes i n Blood by Automated countOrdered By: Nancy Wilson on 07-12-2023 Lymphocytes/100 WBC (Bld) 20.0 % Normal . [facility] Comment on above: Performed By: #### P TT, CBC, PT, BNP, CMP, HS TROP, CK #### [address] MCH [Entitic mass] by Automa jorge countOrdered By: Nancy Wilson on 07-12-2023 MCH (RBC) [Entitic mass] 22.8 pg Low 27.5-35.2 [facility] Comment on above: Performed By: #### P TT, CBC, PT, BNP, CMP, HS TROP, CK #### [address] MCHC Auto (RBC) [Mass/Vol]Or dered By: Nancy Wilson on 07-12-2023 MCHC (RBC) [Mass/Vol] 32.4 g/dL 32.5-35.6 [facility] MCV [Entitic volume] by Auto mated countOrdered By: Nancy Wilson on 07-12-2023 MCV (RBC) [Entitic vol] 70.6 fL Low 83.5-101 [facility] Comment on above: Performed By: #### P TT, CBC, PT, BNP, CMP, HS TROP, CK #### [address] Monocyte distribution width [Entitic volume] in Blood by AutomatedOrdered By: Nancy Wilson on 07-12-2023 Monocyte distribution width Auto (Bld) [Entitic vol] 18.12 % 0.00-20.00 [facility] Neutrophils [#/volume] in Bl ood by Automated countOrdered By: Nancy Wilson on 07-12-2023 Neutrophils (Bld) [#/Vol] 6.2 10*3/uL Normal 1.8-7.7 [facility] Comment on above: Performed By: #### P TT, CBC, PT, BNP, CMP, HS TROP, CK #### [facility] [address] No Panel InformationOrdered By: Nancy Wilson on 07-12-2023 Estimated GFR (CKD-EPI) 42.789 mL/Min [facility] Creatinine Clearance (Chem 54.64 [facility] Nucleated erythrocytes [Pres ence] in Blood by Automated countOrdered By: Nancy Wilson on 07-12-2023 Nucleated RBC Auto Ql (Bld) 0.1 /100{WBC} 0-0.5 [facility] Partial Thromboplastin Timeo n 07-12-2023 aPTT Coag (Bld) [Time] 29.4 s Normal 25.1-36.5 [facility] Comment on above: Result Comment: A he matocrit value greater than 55% may lead to inaccurate results in coagulation testing. Patients having hematocrit values >55% require a special collection tube for coagulation studies. Please contact the laboratory at [phone] for redraw instructions. PERFORMED BY: [facility] [address] [place] [address] PATHOLOGIST BROOD HATCHERY MANAGER CLIFFORD LOBATO M.D. Performed By: #### P TT, CBC, PT, BNP, CMP, HS TROP, CK ####[facility] Platelet mean volume [Entiti c volume] in Blood by Automated countOrdered By: Nancy Wilson on 07-12-2023 Platelet mean volume (Bld) [Entitic vol] 9.1 fL Normal 6.6-10.1 [facility] Comment on above: Performed By: #### P TT, CBC, PT, BNP, CMP, HS TROP, CK #### [facility] [address] Platelets [#/volume] in Bloo d by Automated countOrdered By: Nancy Wilson on 07-12-2023 Platelets (Bld) [#/Vol] 233 10*3/uL Normal 150-450 [facility] Comment on above: Performed By: #### P TT, CBC, PT, BNP, CMP, HS TROP, CK #### [facility] [address] Potassium [Moles/volume] in Serum or PlasmaOrdered By: Nancy Wilson on 07-12-2023 Potassium [Moles/Vol] 3.9 mmol/L Normal 3.5-5.1 [facility] Comment on above: Performed By: #### P TT, CBC, PT, BNP, CMP, HS TROP, CK #### [address] Protein [Mass/volume] in Ser um or PlasmaOrdered By: Nancy Wilson on 07-12-2023 Protein [Mass/Vol] 7.0 g/dL Normal 6.4-8.9 [facility] Comment on above: Performed By: #### P TT, CBC, PT, BNP, CMP, HS TROP, CK #### [address] Prothrombin time (PT)Ordered By: Nancy Wilson on 07-12-2023 PT Coag (PPP) [Time] 12.1 s Normal 9.0-12.9 [facility] Comment on above: A hematocrit value g reater than 55% may lead to inaccurate results in coagulation testing. Patients having hematocrit values >55% require a special collection tube for coagulation studies. Please contact the laboratory at [phone] for redraw instructions. Result Comment: A he matocrit value greater than 55% may lead to inaccurate results in coagulation testing. Patients having hematocrit values >55% require a special collection tube for coagulation studies. Please contact the laboratory at [phone] for redraw instructions. Performed By: #### P TT, CBC, PT, BNP, CMP, HS TROP, CK #### [address] Serum globulin measurement b y calculation (mass/volume)Ordered By: Nancy Wilson on 07-12-2023 Globulin (S) [Mass/Vol] 3.1 g/dL [facility] Comment on above: Performed By: #### P TT, CBC, PT, BNP, CMP, HS TROP, CK #### [address] Serum or plasma albumin/glob ulin mass ratioOrdered By: Nancy Wilson on 07-12-2023 Albumin/Globulin [Mass ratio] 1.3 {ratio} [facility] Comment on above: Performed By: #### P TT, CBC, PT, BNP, CMP, HS TROP, CK #### [address] Serum or plasma anion gap de terminationOrdered By: Nancy Wilson on 07-12-2023 Anion gap [Moles/Vol] 13.4 mmol/L Normal 6.0-15.0 [facility] Comment on above: Performed By: #### P TT, CBC, PT, BNP, CMP, HS TROP, CK #### [address] Sodium [Moles/volume] in Ser um or PlasmaOrdered By: Nancy Wilson on 07-12-2023 Sodium [Moles/Vol] 136 mmol/L Normal 136-145 [facility] Comment on above: Performed By: #### P TT, CBC, PT, BNP, CMP, HS TROP, CK #### [address] Troponin I High Sensitivityo n 07-12-2023 Troponin I High Sensitivity 4.6 pg/mL Normal 0.0-20.0 [facility] Comment on above: Result Comment: PERF ORMED BY: [place] [address] PATHOLOGIST BROOD HATCHERY MANAGER CLIFFORD LOBATO M.D. Performed By: #### P TT, CBC, PT, BNP, CMP, HS TROP, CK #### [address] [place] [address] [facility] Troponin I.cardiac [Mass/vol ume] in Serum or Plasma by Detection limit <= 0.01 ng/Ordered By: Nancy Wilson on 07-12-2023 Troponin I.cardiac DL <= 0.01 ng/mL [Mass/Vol] 4.6 pg/mL 0.0-20.0 [facility] Urea nitrogen [Mass/volume] in Serum or PlasmaOrdered By: Nancy Wilson on 07-12-2023 Urea nitrogen [Mass/Vol] 16 mg/dL Normal 7-25 [facility] Comment on above: Performed By: #### P TT, CBC, PT, BNP, CMP, HS TROP, CK #### [facility] [address] [place], [place] [id number] [facility] XR chest 1V portableon 07-12 XR chest 1V portable [facility] [place] [address] [place] [address] XRay Report Signed Patient: Solomon Feldman MR#: [id number] : 1965 Acct:[id number] Age/Sex: 57 / M ADM Date: 07/12/23 [...] Sudeep Lind M.D.07/12/2023 5:08 PM Dictation Location: [place] [address] Transcribed By: [facility] 07/12/231707 Dictated By: Sudeep Lind DO 07/12/231706 Signed By: 07/12/231707 Normal [facility] Patient Educationon 29-20 23 Patient Education Urology Benign Prostatic Hyperplasia [...] Follow these instructions at home: ? Take ehsa-jnd-ylfofoy and prescription medicines only as told by [...] the medicine (more content not included)... Normal [facility] Retail - Clinical Noteon Retail - Clinical Note [id number]#1.00TIFF Normal [facility] Urology Office/Clinic Noteon 06-02-2023 Urology Office/Clinic Note Chief Complaint S/p to Cysto HPI Staff Sp to Cysto done @ [facility] on 02/14/23- Has not noticed any difference- [...] Contact Information Yeyo ROWE MD, URL [address] [place] [address]- Additional Instructions: 1 month w/ cath volumes [...] heart failure) (more content not included)... Normal [facility] Comment on above: Result Comment: Elec tronically Signed By: Yeyo ROWE MD\.br\Date and Time Signed: 06/02/23 12:16 EST\.br\Electronically Co-Signed By: Mattie Foster\.br\Date and Time Co-Signed: 06/02/23 12:04 EST Patient Educationon 05-03-20 Patient Education Normal [facility] Pathology Noteon 05-01-2023 Pathology Note [id number]#1.00TIFF [facility] 04-14-2023 Lab Reports [id number]#1.00TIFF [facility] Operative Reporton Operative Report [id number]#1.00TIFF [facility] Patient Correspondenceon Patient Correspondence [id number]#1.00TIFF [facility] 03-31-2023 Lab Reports [id number]#1.00TIFF [facility] RAD - MISCon 03-31-2023 RAD - MISC [id number]#1.00TIFF [facility] Patient Correspondenceon Patient Correspondence [id number]#1.00TIFF [facility] Formson 03-23-2023 Forms [id number]#1.00TIFF [facility] A1C HEMOGLOBINon 03-15-2023 HbA1c (Bld) [Mass fraction] 7.5 % [place] [place] Other HbA1c (Bld) [Mass fraction]o n 03-15-2023 A1C HEMOGLOBIN [employer] [facility] Other Lab Reportson 03-09-2023 Lab Reports [id number] [facility] Consultation Noteon 02-27-20 Consultation Note [id number]#1.00CD:12 7 [facility] Consent for Procedure/Surger yon 02-15-2023 Consent for Procedure/Surgery [id number]#1.00CD:12 7 [facility] Office Visit (Cardiology)on 02-15-2023 Follow-up visit Diagnoses/Problems [...] in adult Healthy Weight Tips; Status:Complete; Done: [id number] Patient Instructions Please bring all medicines, vitamins, [...] Sia HERRERA, (more content not included)... Normal [facility] Tobacco Screening.on 023 Fall risk assessment c) Not medically indicated [facility] DO Work Phone: Tobacco use status [facility] b) No [facility] 250 DO Work Phone: Tobacco Screening. Yes [facility] 250 DO Work Phone: Consent for Procedure/Surger yon 02-14-2023 Consent for Procedure/Surgery [id number]#1.00CD:1 27 [facility] Consent for Procedure/Surgery [id number]#1.00CD:1 27 [facility] Consent for Treatmenton 02-03 Consent for Treatment [id number]#1.00CD:12 7 [facility] IntraOperative Documentson 0 02-14-2023 IntraOperative Documents [id number]#1.00CD:1 27 [facility] IntraOperative Documents [id number]#1.00CD:1 27 [facility] Main OR Intraoperative Recor don 02-14-2023 Main OR Intraoperative Record IntraOp Document Type FTURO Summary Primary Physician: Yeyo ROWE MD Finalized Date/Time: 02/14/23 10:18:58 Pt. Name: SOLOMON FELDMAN SR/Sex: 1965 Male Med Rec #: [id number] Physician: Yeyo ROWE MD Financial #: [id number] Pt. Type: O Room/Bed: / Admit/Disch: 02/14/23 08:34:46 - Institution: Case Times FTURO Entry 1 Patient Times In Room 02/14/23 09:29:00 Out Room 02/14/23 09:49:00 Procedure Times Start 02/14/23 09:42:00 Stop 02/14/23 09:45:00 Anesthesia Times Last Modified By: Mauricio STERN, Chandrika Martin 02/14/23 09:45:24 Case Attendance FTURO Entry 1 Entry 2 Entry 3 Case Attendee Yeyo ROWE MD, RN, Chandrika Yin [facility], Sheri Daniel Role Performed Surgeon - Primary Wardrobe Mistress - Primary Scrub - Primary Time In 02/14/23 09:29:00 02/14/23 09:29:00 02/14/23 09:29:00 Time Out 02/14/23 09:49:00 02/14/23 09:49:00 02/14/23 09:49:00 Procedure CYSTOSCOPY LOCAL(.) CYSTOSCOPY LOCAL(.) CYSTOSCOPY LOCAL(.) Comments Last Modified By: Chandrika Martínez RN, RN, Amy J Crosby RN, Amy J 02/14/23 09:45:25 02/14/23 09:45:25 02/14/23 09:45:25 Surgical [...] Out Yeyo ROWE MD, Verified (If Participants Mauricio STERN, Chandrika Martin, Applicable) Sheri Yin CST Time Out Complete [...] 09:45 Chandrika Martínez RN 02/14/23 10:18 Normal [facility] Main OR Preoperative Recordo n 02-14-2023 Main OR Preoperative Record Holding Area Document Type FTURO Summary Primary Physician: Yeyo ROWE MD Finalized Date/Time: 02/14/23 09:01:37 Pt. Name: SOLOMON FELDMAN SR/Sex: 1965 Male Med Rec #: [id number] Physician: Yeyo ROWE MD Financial #: [id number] Pt. Type: O Room/Bed: / Admit/Disch: 02/14/23 [...] By: Sheri Bolivar RN 02/14/23 09:01 Normal [facility] Operative Reporton Operative Report Patient: Joe [...] with antibiotic coverage, Follow up arranged. Normal [facility] Comment on above: Result Comment: Elec [...] including vitamins, herbs, eye drops, creams, and izjj-egf-vinaxjh medicines. ? Any problems you or family [...] tells you to take them. ? Taking dowo-oqv-adcgdti medicines, vitamins, herbs, and supplements. Surgery safety [...] health care (more content not included)... Normal [facility] Progress Note-Physicianon Progress Note-Physician Patient: SOLOMON [...] mg = 1 tab(s), PRN, SubLingual, q5min [place] 325 mg-5 mg oral tablet 1 [...] 278.00 / Possible Fibromyalgia / SNOMED CT [id number] / Confirmed Restless leg / ICD-9-CM 333.94 / Confirmed Arthritis / SNOMED CT [id number]-27S5-6H3E-I [id number] / Confirmed Hyperlipidemia / SNOMED CT 22246527 / Confirmed Smoker / SNOMED CT L927IC5D-2761-41I6-2885-P DN1J4112CI2 / Confirmed Added secondary to documentation in Social History. Asthma / SNOMED CT 161468938 / Confirmed COPD type A / SNOMED CT 882877421 / Confirmed Head ache / SNOMED CT 68458895 / Confirmed Heart attack / SNOMED CT 51295676 / Confirmed Heart disease / SNOMED CT 74017289 / Confirmed Heart murmur / SNOMED CT 257328900 / Confirmed Urinary retention / SNOMED CT 004148297 / Confirmed BPH with obstruction/lower urinary tract symptoms / SNOMED CT 5332120333 / Confirmed Orchitis / SNOMED CT 281887649 / Confirmed Gross hematuria / SNOMED CT 989534732 / Confirmed Tobacco use / SNOMED CT ERKU7546-3637-1O77-K3V2-5 51000QT6NN2 / Confirmed Added secondary to social history documentation. Histories Past Medical History: Active Fibromyalgia ([id number]- 0563416A14B3) Restless leg (333.94) Arthritis ([id number]- VFP2L666W950) Hyperlipidemia (98340495) Resolved HTN [Hypertension] (401.9): Resolved. NIDDM (250.00): Resolved. GERD [Gastroesophageal reflux disease] (530.81): Resolved. CHF (congestive heart failure) (A6753283-4U3S-4M7D-9J30- M861397U0U76): Resolved. TN (myocardial infarction) (930U4SRP-42H7-3U0Q-3O70- 62155D74A9OX): Resolved. Family History: Diabetes mellitus Mother Heart disease Mother Alcoholism Brother Drug addiction Brother Acute myocardial infarction Mother Grandparent Procedure history: Bilateral Eye Surgery. Comments: 07/10/2014 17:25 Kati Causey RN bilateral cataracts with iol implants Bilateral Carpal Tunnel Surgery. cardiac stents. Appendectomy (167751287). Colonoscopy (902600379). Cataract extraction and insertion of intraocular lens (2435482760). Procedure on back (259706080). Social History Social & Psychosocial Habits Alcohol [...] procedure such (more content not included)... Normal [facility] Comment on above: Result Comment: Elec tronically Signed By: SOLEDAD HERRERA, Yeyo Blum\.br\Date and Time Signed: 02/14/23 09:58 EDT Consent for Treatmenton 09-0 Consent for Treatment [id number]#1.00CD:12 7 Normal [facility] Ambulatory Visit Summaryon 0 01-30-2023 Ambulatory Visit Summary GASTON CHRISTIAN, SOLOMON Daniel :1965 Visit Date:01/30/2023 Ambulatory Visit Instructions Your Diagnosis Urinary retention Gross hematuria BPH with obstruction/lower urinary tract symptoms Orchitis Your Care Team Attending Physician - Yeyo ROWE MD Primary Care Physician - JENARO LYNCH DO This Is Your Medications List Contact prescribing physician if questions or concerns acetaminophen-hydrocodone ([place] 325 mg-5 mg oral tablet) albuterol [...] [facility] [address], [place] [address] [id number] Medications What How Much When Instructions Unchanged acetaminophen-hydrocodone ([place] 325 mg-5 mg oral tablet) 1 [...] or vivian (more content not included)... Normal [facility] Patient Educationon 01-31-20 Patient Education Urology [...] including vitamins, herbs, eye drops, creams, and khce-rnu-egduesv medicines. ? Whether you are or may [...] results be (more content not included)... Normal [facility] Urology Office/Clinic Noteon 01-30-2023 Urology Office/Clinic [...] Yeyo Blum, URL [facility] [address] [place] [address] [phone] Additional Instructions: sched cysto/uros Patient Education Urodynamic [...] failure) GERD [Gastroesophageal reflux disease] HTN [Hypertension] TN (myocardial infarction) NIDDM Procedure/Surgical History Appendectomy, Bilateral [...] mg, BID (more content not included)... Normal [facility] Comment on above: Result Comment: Elec tronically Signed By: Saima Sutton\.br\Date and Time Signed: 01/30/23 11:38 EDT [facility] CARDIAC STRESS/REST INJE CTIONon 01-25-2023 [facility] CARDIAC STRESS/REST INJECTION Patient Name: SOLOMON FELDMAN STUDY: MYOCARDIAL PERFUSION STRESS TEST WITH EXERCISE CONVERTED TO LEXISCAN Performing facility: [facility], [address] [place] [address], [address], [address] Provider: Dolores Feldman RN, COMMUNITY ARTIST PCP: Dr. Jenaro Lynch Supervising provider: Pascale Arnold MD, [facility] INDICATION: Anginal equivalent CAD; HISTORY: Gender: M; Age: 57 y/o ; Height: 182.88 cm; Weight: 97.9657274 kg. High Cholesterol; CAD; Diabetes; HTN; Palpitations; Chest Pain; Quit smoking unknown years ago. COMPARISON: Previous nuclear testing completed at [facility]. ACCESSION NUMBER(S): [id number]; [id number]; [id number] ORDERING CLINICIAN: DOLORES FELDMAN TECHNIQUE: ONE DAY [...] Electronically signed by: PASCALE ARNOLD MD Normal [facility] No Panel Informationon 01-25 Normal -[facility] [facility] 250 DO Work Phone: Office Visit [...] contact the office if new symptoms arise. 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 Normal [facility] Tobacco Screening.on 023 Adult depression screening assessment No [facility] [employer] 600 DO Work Phone: Tobacco use status [facility] b) No [facility] [employer] 600 DO Work Phone: Ambulatory Visit Summaryon 0 12-28-2022 Ambulatory Visit Summary SOLOMON FELDMAN SR :1965 Visit Date:12/28/2022 Ambulatory Visit Instructions Your Care Team Attending Physician - Yeyo ROWE MD Primary Care Physician - JENARO LYNCH DO This Is Your Medications List acetaminophen-hydrocodone ([place] 325 mg-5 mg oral tablet) albuterol [...] ROWE MD Where: [facility] Alanine aminotransferase [En zymatic activity/volume] in Serum or PlasmaOrdered By: Jenaro Lynch on 09-27-2022 ALT [Catalytic activity/Vol] 15 U/L 7-52 [facility] Albumin [Mass/volume] in Ser um or Plasma by Bromocresol green (BCG) dye binding methoOrdered By: Jenaro Lynch on 09-27-2022 Albumin BCG dye [Mass/Vol] 4.1 g/dL 3.5-5.7 [facility] Alkaline phosphatase [Enzyma tic activity/volume] in Serum or PlasmaOrdered By: Jenaro Lynch on 09-27-2022 ALP [Catalytic activity/Vol] 116 U/L 34-104 [facility] Aspartate aminotransferase [ Enzymatic activity/volume] in Serum or PlasmaOrdered By: Jenaro Lynch on 09-27-2022 AST [Catalytic activity/Vol] 15 U/L 13-39 [facility] Basophils Auto (Bld) [#/Vol] Ordered By: Jenaro Lynch on 09-27-2022 Basophils (Bld) [#/Vol] 0.1 10*3/uL 0.0-0.2 [facility] Basophils/100 WBC Auto (Bld) Ordered By: Jenaro Lynch on 09-27-2022 Basophils/100 WBC (Bld) 1.1 % . [facility] Bilirubin.total [Mass/volume ] in Serum or PlasmaOrdered By: Jenaro Lynch on 09-27-2022 Bilirubin [Mass/Vol] 0.4 mg/dL 0.3-1.0 [facility] Calcium [Mass/volume] in Ser um or PlasmaOrdered By: Jenaro Lynch on 09-27-2022 Calcium [Mass/Vol] 8.8 mg/dL 8.6-10.3 [facility] Carbon dioxide, total [Moles /volume] in Serum or PlasmaOrdered By: Jenaro Lynch on 09-27-2022 CO2 [Moles/Vol] 27.2 mmol/L 21.0-31.0 [facility] Chloride [Moles/volume] in S ilia or PlasmaOrdered By: Jenaro Lynch on 09-27-2022 Chloride [Moles/Vol] 99 mmol/L 98-107 [facility] Cholesterol [Mass/volume] in Serum or PlasmaOrdered By: Jenaro Lynch on 09-27-2022 Cholesterol [Mass/Vol] 104 mg/dL 140-200 [facility] Comment on above: Chol less than 200 m g/dl low riskChol 201-239 mg/dl borderline riskChol 240 mg/dl and greater high risk Cholesterol in LDL Calc [Mas s/Vol]Ordered By: Jenaro Lynch on 09-27-2022 Cholesterol in LDL [Mass/Vol] TNP [facility] Comment on above: Test not performed Cholesterol in LDL [Mass/vol ume] in Serum or PlasmaOrdered By: Jenaro Lynch on 09-27-2022 Cholesterol in LDL [Mass/Vol] 38 mg/dL 0-100 [facility] Comment on above: LDL ATP III CLASSIFI CATIONLDL less than 100 mg/dL OptimalLDL 100-129 mg/dL Near or above optimalLDL 130-159 mg/dL Borderline highLDL 160-189 mg/dL HighLDL greater than 189 mg/dL Very high Cholesterol in VLDL Calc [Ma ss/Vol]Ordered By: Jenaro Lynch on 09-27-2022 Cholesterol in VLDL [Mass/Vol] 99 mg/dL [facility] Creatinine [Mass/volume] in Serum or PlasmaOrdered By: Jenaro Lynch on 09-27-2022 Creatinine [Mass/Vol] 1.84 mg/dL 0.70-1.30 [facility] Eosinophils Auto (Bld) [#/Vo l]Ordered By: Jenaro Lynch on 09-27-2022 Eosinophils (Bld) [#/Vol] 0.7 10*3/uL 0.0-0.45 [facility] Eosinophils/100 WBC Auto (Bl d)Ordered By: Jenaro Lynch on 09-27-2022 Eosinophils/100 WBC (Bld) 5.9 % . [facility] Erythrocyte distribution wid th Auto (RBC) [Ratio]Ordered By: Jenaro Lynch on 09-27-2022 Erythrocyte distribution width (RBC) [Ratio] 16.0 % 12.0-14.8 [facility] Globulin Calc (S) [Mass/Vol] Ordered By: Jenaro Lynch on 09-27-2022 Globulin (S) [Mass/Vol] 2.9 g/dL [facility] Glucose [Mass/volume] in Ser um or PlasmaOrdered By: Jenaro Lynch on 09-27-2022 Glucose [Mass/Vol] 225 mg/dL 70-100 [facility] Comment on above: ADA recommended refe rence rangeRandom Glucose Reference Range is dependent on time and content of last meal. Glucose of more than 200 mg/dL in a nonstressed, ambulatory subject supports the diagnosis of Diabetes Mellitus. Hematocrit Auto (Bld) [Volum e fraction]Ordered By: Jenaro Lynch on 09-27-2022 Hematocrit (Bld) [Volume fraction] 41.0 % 38.8-50.0 [facility] Hemoglobin [Mass/volume] in BloodOrdered By: Jenaro Lynch on 09-27-2022 Hemoglobin (Bld) [Mass/Vol] 13.2 g/dL 13.0-17.0 [facility] Leukocytes [#/volume] correc jorge for nucleated erythrocytes in Blood by Automated counOrdered By: Jenaro Lynch on 09-27-2022 WBC corrected for nucl RBC Auto (Bld) [#/Vol] 12.4 10*3/uL 4.1-10.5 [facility] Lymphocytes Auto (Bld) [#/Vo l]Ordered By: Jenaro Lynch on 09-27-2022 Lymphocytes (Bld) [#/Vol] 2.3 10*3/uL 1.00-4.8 [facility] Lymphocytes/100 WBC Auto (Bl d)Ordered By: Jenaro Lynch on 09-27-2022 Lymphocytes/100 WBC (Bld) 18.2 % . [facility] MCH Auto (RBC) [Entitic mass ]Ordered By: Jenaro Lynch on 09-27-2022 MCH (RBC) [Entitic mass] 23.9 pg 27.5-35.2 [facility] MCHC Auto (RBC) [Mass/Vol]Or dered By: Jenaro Lynch on 09-27-2022 MCHC (RBC) [Mass/Vol] 32.2 g/dL 32.5-35.6 [facility] MCV Auto (RBC) [Entitic vol] Ordered By: Jenaro Lynch on 09-27-2022 MCV (RBC) [Entitic vol] 74.3 fL 83.5-101 [facility] Monocytes Auto (Bld) [#/Vol] Ordered By: Jenaro Lynch on 09-27-2022 Monocytes (Bld) [#/Vol] 1.0 10*3/uL 0.0-0.8 [facility] Monocytes/100 WBC Auto (Bld) Ordered By: Jenaro Lynch on 09-27-2022 Monocytes/100 WBC (Bld) 7.9 % . [facility] Neutrophils Auto (Bld) [#/Vo l]Ordered By: Jenaro Lynch on 09-27-2022 Neutrophils (Bld) [#/Vol] 8.3 10*3/uL 1.8-7.7 [facility] Neutrophils/100 WBC Auto (Bl d)Ordered By: Jenaro Lynch on 09-27-2022 Neutrophils/100 WBC (Bld) 66.9 % . [facility] No Panel InformationOrdered By: Jenaro Lynch on 09-27-2022 Estimated GFR (CKD-EPI) 42.232 mL/Min [facility] Creatinine Clearance (Chem N/A [facility] Nucleated erythrocytes [Pres ence] in Blood by Automated countOrdered By: Jenaro Lynch on 09-27-2022 Nucleated RBC Auto Ql (Bld) 0.1 /100{WBC} 0-0.5 [facility] Platelet mean volume Auto (B ld) [Entitic vol]Ordered By: Jenaro Lynch on 09-27-2022 Platelet mean volume (Bld) [Entitic vol] 9.1 fL 6.6-10.1 [facility] Platelets Auto (Bld) [#/Vol] Ordered By: Jenaro Lynch on 09-27-2022 Platelets (Bld) [#/Vol] 209 10*3/uL 150-450 [facility] Potassium [Moles/volume] in Serum or PlasmaOrdered By: Jenaro Lynch on 09-27-2022 Potassium [Moles/Vol] 4.3 mmol/L 3.5-5.1 [facility] Protein [Mass/volume] in Ser um or PlasmaOrdered By: Jenaro Lynch on 09-27-2022 Protein [Mass/Vol] 7.0 g/dL 6.4-8.9 [facility] RBC Auto (Bld) [#/Vol]Ordere d By: Jenaro Lynch on 09-27-2022 RBC (Bld) [#/Vol] 5.52 10*6/uL 3.90-5.60 [facility] Serum or plasma albumin/glob ulin mass ratioOrdered By: Jenaro Lynch on 09-27-2022 Albumin/Globulin [Mass ratio] 1.4 {ratio} [facility] Serum or plasma anion gap de terminationOrdered By: Jenaro Lynch on 09-27-2022 Anion gap [Moles/Vol] 14.1 mmol/L 6.0-15.0 [facility] Serum or plasma high density lipoprotein (HDL) cholesterol measurementOrdered By: Jenaro Lynch on 09-27-2022 Cholesterol in HDL [Mass/Vol] 21 mg/dL 29-71 [facility] Comment on above: HDL CHOL ATP-III CLA SSIFICATION Cardiovascular RiskHDL > or equal to 60 mg/dL LOWHDL < 40 mg/dL HIGH Serum or plasma total choles terol/high density lipoprotein (HDL) cholesterol mass ratOrdered By: Jenaro Lynch on 09-27-2022 Cholesterol.total/Chol esterol in HDL [Mass ratio] 5.0 {ratio} <5.0 [facility] Sodium [Moles/volume] in Ser um or PlasmaOrdered By: Jenaro Lynch on 09-27-2022 Sodium [Moles/Vol] 136 mmol/L 136-145 [facility] Thyrotropin [Units/volume] i n Serum or PlasmaOrdered By: Jenaro Lynch on 09-27-2022 TSH Qn 3.62 m[IU]/L 0.45-5.33 [facility] Triglyceride [Mass/volume] i n Serum or PlasmaOrdered By: Jenaro Lynch on 09-27-2022 Triglyceride [Mass/Vol] 497 mg/dL 0-149 [facility] Comment on above: If the triglyceride result [...] Urate [Mass/Vol] 6.2 mg/dL 2.4-7.6 [facility] Urea nitrogen [Mass/volume] in Serum or PlasmaOrdered By: Jenaro Lynch on 09-27-2022 Urea nitrogen [Mass/Vol] 15 mg/dL 12-27 [facility] WBC Auto (Bld) [#/Vol]Ordere d By: Jenaro Lynch on 09-27-2022 WBC (Bld) [#/Vol] 12.4 10*3/uL 4.1-10.5 [facility] A1C HEMOGLOBINon 02-15-2022 HbA1c (Bld) [Mass fraction] % [place] Other HbA1c (Bld) [Mass fraction]o n 02-15-2022 A1C HEMOGLOBIN [employer] Other Tobacco Screening.on 022 Adult depression screening assessment No [facility] 250 DO Work Phone: Tobacco use status [facility] b) No [facility] 250 DO Work Phone: A1C HEMOGLOBINon 07-27-2021 HbA1c (Bld) [Mass fraction] 11.8 % [place] Other HbA1c (Bld) [Mass fraction]o n 07-27-2021 A1C HEMOGLOBIN [employer] Other Vital Signs Date Time Vital Sign Value Performing Clinician Facility 10-24-2023 10:56-0400 Body height 182.9 cm Raulito Inman MD Work Phone: [facility] 10-24-2023 10:56-0400 Diastolic blood pressure 86 mm[Hg] Raulito Inman MD Work Phone: [facility] 10-24-2023 10:56-0400 Heart rate 104 /min Raulito Inman MD Work Phone: [facility] 10-24-2023 10:56-0400 Systolic blood pressure 134 mm[Hg] Raulito Inman MD Work Phone: [facility] 10-23-2023 09:37-0400 Blood Pressure Location Padmini Montes [facility] 10-23-2023 09:37-0400 Diastolic blood pressure 82 mm[Hg] Padmini Montes [facility] 10-23-2023 09:37-0400 Heart rate 107 /min Padmini Montes [facility] 10-23-2023 09:37-0400 SaO2% (BldA) [Mass fraction] 98 % Padmini Montes [facility] 10-23-2023 09:37-0400 Systolic blood pressure 130 mm[Hg] Padmini Montes [facility] 07-31-2023 12:00-0500 Diastolic blood pressure 63 mm[Hg] DO Jenaro Kuns Work Phone: [facility] 07-31-2023 12:00-0500 Heart rate 75 /min DO Jenaro Kuns Work Phone: [facility] 07-31-2023 12:00-0500 Systolic blood pressure 108 mm[Hg] DO Jenaro Kuns Work Phone: [facility] 07-31-2023 08:33-0500 Respiratory rate 18 /min DO Jenaro Kuns Work Phone: [facility] 07-12-2023 18:03-0500 Diastolic blood pressure 73 mm[Hg] DO Jenaro Kuns Work Phone: [facility] 07-12-2023 18:03-0500 Heart rate 76 /min DO Jenaro Kuns Work Phone: [facility] 07-12-2023 18:03-0500 Respiratory rate 20 /min DO Jenaro Kuns Work Phone: [facility] 07-12-2023 18:03-0500 SaO2% (BldA) [Mass fraction] 98 % DO Jenaro Kuns Work Phone: [facility] 07-12-2023 18:03-0500 Systolic blood pressure 125 mm[Hg] DO Jenaro Lynch Work Phone: [facility] 07-12-2023 16:15-0500 Body height 182.88 cm DO Jenaro Lynch Work Phone: [facility] 07-12-2023 16:15-0500 Body temperature 98.9 [degF] DO Jenaro Lynhc Work Phone: [facility] 07-12-2023 16:15-0500 Body weight 99.25 kg DO Jenaro Lynch Work Phone: [facility] 06-02-2023 10:56-0500 Blood Pressure Location Yeyo ROWE [facility] 06-02-2023 10:56-0500 Body temperature 96.98 [degF] Yeyoneel ROWE [facility] 06-02-2023 10:56-0500 Diastolic blood pressure 84 mm[Hg] Yeyo ROWE [facility] 06-02-2023 10:56-0500 Heart rate 68 /min Yeyo ROWE [facility] 06-02-2023 10:56-0500 Systolic blood pressure 124 mm[Hg] Yeyo ROWE [facility] 04-06-2023 13:15-0400 Body height 180.34 cm Jenaro Lynch Other [facility] Other 04-06-2023 13:15-0400 Body mass index (BMI) [Ratio] 29.43 kg/m2 Jenaro Lynch Other [facility] Other 04-06-2023 13:15-0400 Body weight 95.71 kg Jenaro Syed Other [facility] Other 04-06-2023 13:15-0400 Diastolic blood pressure 70 mm[Hg] Jenaro Lynch Other [employer] [facility] Other 04-06-2023 13:15-0400 Respiratory rate 18 /min Jenaro Lynch Other [employer] [facility] Other 04-06-2023 13:15-0400 SaO2% (BldA) [Mass fraction] 97 % Jenaro Lynch Other [employer] [facility] Other 04-06-2023 13:15-0400 Systolic blood pressure 100 mm[Hg] Jenaro Lynch Other [employer] [facility] Other 03-15-2023 08:30-0400 Body height 180.34 cm Jenaro Lynch Other [employer] [facility] Other 03-15-2023 08:30-0400 Body mass index (BMI) [Ratio] 29.01 kg/m2 Jenaro Lynch Other [employer] [facility] Other 03-15-2023 08:30-0400 Body weight 94.35 kg Jenaro Lynch Other [employer] Other 03-15-2023 08:30-0400 Diastolic blood pressure 62 mm[Hg] Jenaro Lynch Other [employer] Other 03-15-2023 08:30-0400 Respiratory rate 16 /min Jenaro Lynch Other [employer] Other 03-15-2023 08:30-0400 SaO2% (BldA) [Mass fraction] 97 % Jenaro Lynch Other [facility] Other 03-15-2023 08:30-0400 Systolic blood pressure 88 mm[Hg] Jenaro Jettjoe Other [facility] [facility] Other 02-15-2023 10:04-0400 Body height 182.88 cm Jenaro Lynch [facility] DO Work Phone: 02-15-2023 10:04-0400 Body mass index (BMI) [Ratio] 28.62 kg/m2 Jenaro Mari Lynch Work Phone: [facility] 250 DO Work Phone: 02-15-2023 10:04-0400 Body surface area Derived from formula 2.18 m2 Jenarogorge Lynch Work Phone: [facility] 250 DO Work Phone: 02-15-2023 10:04-0400 Body weight 95.71 kg Jenaro Lynch Work Phone: [facility] 250 DO Work Phone: 02-15-2023 10:04-0400 Diastolic blood pressure 70 mm[Hg] Jenaro Mari Lynch Work Phone: [facility] 250 DO Work Phone: 02-15-2023 10:04-0400 Heart rate 76 /min Jenaro Guerra Syed Work Phone: [facility] 250 DO Work Phone: 02-15-2023 10:04-0400 Systolic blood pressure 102 mm[Hg] Jenaro Fraustojoe Work Phone: [facility] 250 DO Work Phone: 01-30-2023 10:23-0400 Blood Pressure Location Yeyo ROWE [facility] 01-30-2023 10:23-0400 Diastolic blood pressure 74 mm[Hg] Yeyo ROWE [facility] 01-30-2023 10:23-0400 Heart rate 68 /min Yeyo ROWE [facility] 01-30-2023 10:23-0400 Respiratory rate 16 /min Yeyo ROWE [facility] 01-30-2023 10:23-0400 Systolic blood pressure 130 mm[Hg] Yeyo ROWE [facility] 01-11-2023 15:08-0400 Body height 180.34 cm Jenaro Lynch Work Phone: [facility] [place] 600 DO Work Phone: 01-11-2023 15:08-0400 Body mass index (BMI) [Ratio] 30.13 kg/m2 Jenaro Lynch Work Phone: [facility] [place] 600 DO Work Phone: 01-11-2023 15:08-0400 Body surface area Derived from formula 2.18 m2 Jenaro Lynch Work Phone: [facility] 600 DO Work Phone: 01-11-2023 15:08-0400 Body weight 97.98 kg Jenaro Lynch Work Phone: [facility] 600 DO Work Phone: 01-11-2023 15:08-0400 Diastolic blood pressure 86 mm[Hg] Jenarogorge Lynch Work Phone: [facility] [employer] 600 DO Work Phone: 01-11-2023 15:08-0400 Heart rate 74 /min Jenaro Lynch Work Phone: [facility] [employer] 600 DO Work Phone: 01-11-2023 15:08-0400 Systolic blood pressure 122 mm[Hg] Jenaro Lynch Work Phone: [facility] [employer] 600 DO Work Phone: 12-01-2022 12:45-0400 Body height 180.34 cm Jenaro Lynch Other [employer] Other 12-01-2022 12:45-0400 Body mass index (BMI) [Ratio] 29.73 kg/m2 Jenaro Lynch Other [employer] Other 12-01-2022 12:45-0400 Body weight 96.71 kg Jenaro Lynch Other [employer] Other 12-01-2022 12:45-0400 Diastolic blood pressure 70 mm[Hg] Jenaro Lynch Other [employer] Other 12-01-2022 12:45-0400 Respiratory rate 18 /min Jenaro Lynch Other [employer] Other 12-01-2022 12:45-0400 SaO2% (BldA) [Mass fraction] 94 % Jenaro Lynch Other [employer] Other 12-01-2022 12:45-0400 Systolic blood pressure 122 mm[Hg] Jenaro Lynch Other [employer] Other 11-23-2022 11:38-0400 Blood Pressure Location Yeyo ROWE [facility] 11-23-2022 11:38-0400 Diastolic blood pressure 85 mm[Hg] Yeyo ROWE [facility] 11-23-2022 11:38-0400 Heart rate 76 /min Yeyo ROWE [facility] 11-23-2022 11:38-0400 Systolic blood pressure 130 mm[Hg] Yeyo ROWE [facility] 07-04-2022 10:30-0500 Body height 180.34 cm Jenaro Lynch Other [employer] Other 07-04-2022 10:30-0500 Body mass index (BMI) [Ratio] 29.43 kg/m2 Jenaro Lynch Other [employer] Other 07-04-2022 10:30-0500 Body weight 95.71 kg Jenaro Lynch Other [employer] Other 07-04-2022 10:30-0500 Diastolic blood pressure 86 mm[Hg] Jenaro Lynch Other [employer] Other 07-04-2022 10:30-0500 Respiratory rate 16 /min Jenaro Lynch Other [employer] Other 07-04-2022 10:30-0500 Systolic blood pressure 146 mm[Hg] Jenaro Lynch Other [employer] Other 02-15-2022 13:45-0400 Body height 180.34 cm Jenaro Lynch Other [employer] Other 02-15-2022 13:45-0400 Body mass index (BMI) [Ratio] 30.12 kg/m2 Jenaro Lynch Other [employer] Other 02-15-2022 13:45-0400 Body weight 97.98 kg Jenaro Lynch Other [employer] Other 02-15-2022 13:45-0400 Diastolic blood pressure 62 mm[Hg] Jenaro Lynch Other [employer] Other 02-15-2022 13:45-0400 Respiratory rate 16 /min Jenaro Lynch Other [employer] Other 02-15-2022 13:45-0400 SaO2% (BldA) [Mass fraction] 96 % Jenaro Lynch Other [employer] Other 02-15-2022 13:45-0400 Systolic blood pressure 100 mm[Hg] Jenaro Lynch Other [employer] Other 10-26-2021 10:01-0400 Body height 180.34 cm Jenaro Lynch Work Phone: [employer] 250 DO Work Phone: 10-26-2021 10:01-0400 Body mass index (BMI) [Ratio] 29.99 kg/m2 Jenaro Lynch Work Phone: [employer] 250 DO Work Phone: 10-26-2021 10:01-0400 Body surface area Derived from formula 2.17 m2 Jenaro Lynch Work Phone: [facility] 250 DO Work Phone: 10-26-2021 10:01-0400 Body weight 97.52 kg Jenaro Lynch Work Phone: [facility] 250 DO Work Phone: 10-26-2021 10:01-0400 Diastolic blood pressure 70 mm[Hg] Jenaro Lynch Work Phone: [facility] 250 DO Work Phone: 10-26-2021 10:01-0400 Heart rate 68 /min Jenaro Lynch Work Phone: [facility] 250 DO Work Phone: 10-26-2021 10:01-0400 Systolic blood pressure 104 mm[Hg] Jenaro Lynch Work Phone: [facility] [place] 250 DO Work Phone: 10-19-2021 12:20-0400 Body height 180.34 cm Amina Sophia [employer] Other [facility] Other 10-19-2021 12:20-0400 Body mass index (BMI) [Ratio] 30.65 kg/m2 [employer] Other [place] [employer] Other 10-19-2021 12:20-0400 Body temperature 96.8 [degF] [employer] Other [employer] Other 10-19-2021 12:20-0400 Body weight 99.7 kg Amina [employer] Other [place] [employer] Other 10-19-2021 12:20-0400 Diastolic blood pressure 71 mm[Hg] [employer] Other [employer] Other 10-19-2021 12:20-0400 Respiratory rate 18 /min Amina Fagan Other [employer] Other 10-19-2021 12:20-0400 SaO2% (BldA) [Mass fraction] 98 % Amina Fagan Other [employer] Other 10-19-2021 12:20-0400 Systolic blood pressure 111 mm[Hg] Amina Fagan Other [employer] Other 07-27-2021 14:00-0500 Body height 180.34 cm Jenaro Lynch Other [employer] Other 07-27-2021 14:00-0500 Body mass index (BMI) [Ratio] 30.4 kg/m2 Jenaro Lynch Other [employer] Other 07-27-2021 14:00-0500 Body weight 98.88 kg Jenaro Lynch Other [employer] Other 07-27-2021 14:00-0500 Diastolic blood pressure 76 mm[Hg] Jenaro Lynch Other [employer] Other 07-27-2021 14:00-0500 Respiratory rate 18 /min Jenaro Lynch Other [employer] Other 07-27-2021 14:00-0500 SaO2% (BldA) [Mass fraction] 98 % Jenaro Lynch Other [employer] Other 07-27-2021 14:00-0500 Systolic blood pressure 112 mm[Hg] Jenaro Lynch Other [facility] Other Encounters Encounter Date Encounter Type Care Provider Facility Start: 02-12-2024 ambulatory Yeyo Ley ty:[facility] Start: 01-01-2024 End: 01-01-2024 ambulatory [facility] Start: 12-21-2023 End: 12-21-2023 ambulatory [facility] Start: 12-15-2023 End: 12-15-2023 ambulatory DO Jenaro Lynch Work Phone: [facility] Work Phone: Start: 12-15-2023 End: 12-15-2023 Departed Referred DO Jenaro Lynch Work Phone: [facility] [place] [facility] Start: 12-10-2023 Non-patient / Non-visit DO Phillip Fraustos Work Phone: [facility] [employer] [facility] Work Phone: Start: 12-09-2023 Non-patient / Non-visit DO Phillip an Kuns Work Phone: [facility] Work Phone: Start: 11-30-2023 End: 11-30-2023 ambulatory [facility] Start: 11-26-2023 Non-patient / Non-visit DO Phillip pennington Kuns Work Phone: [facility] Work Phone: Start: 11-23-2023 End: 11-23-2023 ambulatory [facility] Start: 11-15-2023 End: 11-15-2023 ambulatory MAAME Hooker [facility] Start: 11-15-2023 Non-patient / Non-visit DO Phillip pennington Kuns Work Phone: [facility] Work Phone: Start: 11-14-2023 End: 11-14-2023 Evaluation and management of inpatient PADMINI MONTES [facility] Start: 11-07-2023 End: 11-14-2023 Evaluation and management of inpatient ROSIE Brian [facility] Start: 11-07-2023 End: 11-14-2023 Evaluation and management of inpatient PADMINI MONTES [facility] Start: 10-24-2023 End: 10-24-2023 ambulatory [facility] Start: 10-24-2023 End: 10-24-2023 Encounter for preprocedural cardiovascular examination [facility] Start: 10-24-2023 End: 10-24-2023 Office outpatient visit 25 minutes Raulito Inman MD Work Phone: [facility] Comment on above: History of PTCA; Hyperlipidemia, unspecified hyperlipidemia type; Encounter for pre-operative cardiovascular clearance; Former smoker Start: 10-24-2023 End: 10-24-2023 Patient encounter status Raulito Inman MD Work Phone: [facility] Work Phone: Start: 10-23-2023 End: 10-23-2023 ambulatory XXXX NONE Facility:[facility] Start: 10-23-2023 End: 10-23-2023 Patient encounter procedure Padmini Montes [facility] Start: 10-19-2023 End: 10-20-2023 ambulatory Padmini Montes Facility:[facility] Start: 10-19-2023 ambulatory Padmini Montes Facili ty:[facility] Start: 10-19-2023 End: 10-19-2023 Patient encounter procedure Padmini Montes [facility] Start: 10-18-2023 End: 10-18-2023 [facility] Start: 10-06-2023 Non-patient / Non-visit DO Phillip an Kuns Work Phone: [facility] Work Phone: Start: 10-05-2023 End: 10-05-2023 ambulatory DO Jenaro Kuns Work Phone: [facility] Work Phone: Start: 10-05-2023 End: 10-05-2023 Departed Referred DO Jenaro Kuns Work Phone: [facility] Start: 10-05-2023 Non-patient / Non-visit DO Phillip an Kuns Work Phone: [facility] Work Phone: Start: 10-04-2023 Non-patient / Non-visit DO Phillip an Kuns Work Phone: [facility] Work Phone: Start: 10-03-2023 Non-patient / Non-visit DO Phillip an Kuns Work Phone: [facility] Work Phone: Start: 10-02-2023 End: 10-02-2023 ambulatory DO Jenaro Kuns Work Phone: [facility] Work Phone: Start: 10-02-2023 End: 10-02-2023 Departed Referred DO Jenaro Kuns Work Phone: [facility] Start: 10-02-2023 Non-patient / Non-visit DO Phillip an Kuns Work Phone: [facility] Work Phone: Start: 10-01-2023 Non-patient / Non-visit DO Phillip an Kuns Work Phone: [facility] Work Phone: Start: 09-30-2023 Non-patient / Non-visit DO Phillip an Kuns Work Phone: [facility] Work Phone: Start: 09-27-2023 Non-patient / Non-visit DO Phillip an Kuns Work Phone: [facility] Work Phone: Start: 09-21-2023 End: 09-21-2023 ambulatory DO Jenaro Fraustos Work Phone: [facility] Work Phone: Start: 09-21-2023 End: 09-21-2023 Departed Referred DO Jenaro Kuns Work Phone: [facility] Start: 09-21-2023 Non-patient / Non-visit DO Phillip an Kuns Work Phone: [facility] Work Phone: Start: 09-18-2023 Non-patient / Non-visit DO Phillip an Kuns Work Phone: [facility] Work Phone: Start: 09-08-2023 End: 09-08-2023 ambulatory Yeyo ROWE Facility:[facility] Start: 09-08-2023 End: 09-08-2023 Patient encounter procedure Yeyo ROWE [facility] Start: 08-10-2023 Non-patient / Non-visit DO Phillip an Kuns Work Phone: [facility] Work Phone: Start: 08-08-2023 Non-patient / Non-visit DO Phillip an Kuns Work Phone: [facility] Work Phone: Start: 08-07-2023 Non-patient / Non-visit DO Phillip an Kuns Work Phone: [facility] Work Phone: Start: 08-06-2023 Non-patient / Non-visit DO Phillip an Kuns Work Phone: [facility] Work Phone: Start: 08-05-2023 Non-patient / Non-visit DO Phillip an Kuns Work Phone: [facility] Work Phone: Start: 08-04-2023 Non-patient / Non-visit DO Phillip an Kuns Work Phone: [facility] Work Phone: Start: 08-03-2023 Non-patient / Non-visit DO Phillip an Kuns Work Phone: [facility] Work Phone: Start: 07-31-2023 Registered Recurring DO Jenarogorge Fraustos Work Phone: [facility] Work Phone: Start: 07-31-2023 ambulatory Jenaro Lynch Facility:[facility] Start: 07-26-2023 Non-patient / Non-visit DO Phillip an Kuns Work Phone: [facility] [employer] Work Phone: Start: 07-12-2023 End: 07-12-2023 Emergency department patient visit DO Jenarogorge Fraustos Work Phone: [facility] Work Phone: Start: 07-07-2023 End: 07-07-2023 ambulatory Jenaro Lynch Other [facility] Other Start: 07-07-2023 Telephone encounter Jnearo Fraustojoe [facility] Start: 07-03-2023 End: 07-03-2023 ambulatory Yeyo ROWE Facility:[facility] Start: 06-26-2023 End: 06-26-2023 ambulatory Jenaro Jettjoe Other [employer] Other Start: 06-26-2023 Telephone encounter Jenarogorge Fraustojoe [facility] Start: 06-02-2023 End: 06-02-2023 ambulatory Yeyo ROWE Facility:[facility] Start: 06-02-2023 End: 06-02-2023 Patient encounter procedure Yeyo ROWE [facility] Start: 05-16-2023 End: 05-16-2023 ambulatory Jenaro Lynch Other [employer] Other Start: 05-16-2023 Telephone encounter Jenaro [facility] Start: 05-03-2023 End: 05-03-2023 ambulatory Yeyo ROWE Facility:[facility] Start: 05-03-2023 End: 05-03-2023 Patient encounter procedure Yeyo ROWE [facility] Start: 04-28-2023 End: 04-28-2023 ambulatory Jenaro Fraustojoe Other [employer] Other Start: 04-28-2023 Telephone encounter Jenaro Syed [facility] Start: 04-18-2023 End: 04-18-2023 ambulatory Yeyo ROWE Facility:[facility] [place] Start: 04-18-2023 End: 04-18-2023 Patient encounter procedure Yeyo ROWE [facility] Start: 04-17-2023 ambulatory Yeyo ROWE Facili ty:[facility] [place] Start: 04-13-2023 End: 04-13-2023 ambulatory Yeyoneel ROWE Facility:CD:[id number] Start: 04-11-2023 End: 04-11-2023 ambulatory Jenarogorge Lynch Other [employer] Other Start: 04-11-2023 Telephone encounter Jenaro Lynch [facility] Start: 04-06-2023 End: 04-06-2023 ambulatory Jenaro Lynch Other [employer] Other Start: 04-06-2023 Encounter for other preprocedural examination Jenaro Lynch [facility] Start: 04-06-2023 Office outpatient vi sit 25 minutes Jenaro Lynch [facility] [place] Start: 03-28-2023 End: 03-28-2023 ambulatory Jenaro Lynch Other [employer] Other Start: 03-28-2023 Telephone encounter Jenaro Lynch [facility] [place] Start: 03-20-2023 ambulatory Yeyo ROWE Facili ty:[facility] Start: 03-15-2023 End: 03-15-2023 ambulatory Yeyo Viktoria ROWE [place] [employer] Other Start: 03-15-2023 Office outpatient vi sit 25 minutes Jenaro Lynch [facility] Start: 03-10-2023 End: 03-10-2023 ambulatory Jenaro Lynch Other [employer] Other Start: 03-10-2023 Telephone encounter Jenaro Lynch [facility] Start: 02-15-2023 Office outpatient vi sit 15 minutes Jenaro Lynch Work Phone: [facility] 250 DO Work Phone: Start: 02-15-2023 ambulatory Dolores Feldman Facility:[id number] Start: 02-14-2023 End: 02-14-2023 ambulatory Yeyo ROWE Facility:[facility] Start: 02-14-2023 End: 02-14-2023 Patient encounter procedure Yeyo ROWE [facility] Start: 02-08-2023 End: 02-08-2023 ambulatory Yeyo ROWE Facility:[facility] Start: 02-08-2023 End: 02-08-2023 Patient encounter procedure Yeyo ROWE [facility] Start: 01-30-2023 End: 01-30-2023 ambulatory Yeyo ROWE Facility:[facility] Start: 01-30-2023 End: 01-30-2023 Patient encounter procedure Yeyo ROWE [facility] Start: 01-25-[address] Jenaro Lynch Facility:[id number] Start: 01-17-2023 End: 01-17-2023 ambulatory Jenaro Lynch Other [facility] Other Start: 01-17-2023 Telephone encounter Jenaro Lynch [facility] Start: 01-11-2023 Office outpatient vi sit 25 minutes Jenaro Lynch Work Phone: [facility] 600 DO Work Phone: Start: 01-11-2023 ambulatory Dolores Gaston Facility:[id number] Start: 12-28-2022 End: 12-28-2022 ambulatory Yeyo ROWE Facility:[facility] [place] Start: 12-28-2022 End: 12-28-2022 Patient encounter procedure Yeyo ROWE [facility] [place] Start: 12-21-2022 ambulatory Yeyoneel ROWE Facili ty:[facility] [place] Start: 12-01-2022 End: 12-01-2022 ambulatory Jenaro Lynch Other [employer] Other Start: 12-01-2022 Office outpatient vi sit 25 minutes Jenaro Lynch [facility] Start: 11-30-2022 ambulatory Yeyoneel ROWE Facility :[facility] [place] Start: 11-23-2022 End: 11-23-2022 Patient encounter procedure Yeyo ROWE [facility] Start: 10-07-2022 End: 10-07-2022 ambulatory Jenaro Lynch Other [employer] Other Start: 10-07-2022 Telephone encounter Jenaro Lynch [facility] Start: 09-27-2022 End: 09-27-2022 ambulatory DO Jenaro Lynch Work Phone: [facility] Work Phone: Start: 09-27-2022 End: 09-27-2022 Patient encounter procedure DO Jenaro Lynch Work Phone: [facility] [place] Work Phone: Start: 09-21-2022 End: 09-21-2022 ambulatory Jenaro Lynch Other [employer] Other Start: 09-21-2022 Telephone encounter Jenaro Lynch [facility] Start: 09-14-2022 End: 09-14-2022 ambulatory Jenaro Lynch Other [employer] Other Start: 09-14-2022 Telephone encounter Jenaro Lynch [facility] Start: 09-02-2022 End: 09-02-2022 Patient encounter procedure DO Jenaro Lynch Work Phone: [facility] [place] Work Phone: Start: 08-25-2022 End: 08-25-2022 ambulatory Doris Barnes Other [employer] Other Start: 08-25-2022 Telephone encounter Doris Barnes [facility] Start: 08-22-2022 End: 08-22-2022 ambulatory Jenaro Lynch Other [employer] Other Start: 08-22-2022 Telephone encounter Jenaro Lynch [facility] [place] Start: 08-05-2022 End: 08-05-2022 ambulatory Jenaro Lynch Other [employer] Other Start: 08-05-2022 Telephone encounter Jenaro Lynch [facility] [place] Start: 08-04-2022 End: 08-04-2022 ambulatory Jenaro Lynch Other [employer] Other Start: 08-04-2022 Telephone encounter Jenaro Lynch [facility] [place] Start: 07-28-2022 End: 07-28-2022 ambulatory Jenaro Fraustojoe Other [employer] Other Start: 07-28-2022 Telephone encounter Jenaro Jettjoe [facility] [employer] Start: 07-25-2022 End: 07-25-2022 ambulatory Jenaro Lynch Other [employer] Other Start: 07-25-2022 Nursing evaluation o f patient and report Jenaro Lynch [facility] [place] Start: 07-19-2022 End: 07-19-2022 ambulatory Jenaro Lynch Other [employer] Other Start: 07-19-2022 Telephone encounter Jenaro Lynch [facility] [place] Start: 07-15-2022 End: 07-15-2022 ambulatory Jenaro Lynch Other [employer] Other Start: 07-15-2022 Telephone encounter Jenaro Lynch [facility] [place] Start: 07-13-2022 End: 07-13-2022 ambulatory Jenaro Lynch Other [employer] Other Start: 07-13-2022 Nursing evaluation o f patient and report Jenaro Lynch [facility] Start: 07-12-[address] Raulito gutierrez [facility] Facility: Start: 07-05-2022 End: 07-05-2022 ambulatory Jenaro Lynch Other [employer] Other Start: 07-05-2022 Telephone encounter Jenaro Lynch [facility] Start: 07-05-2022 Rx Renewal Jenaro Lynch Work Phone: [facility] 250 DO Work Phone: Start: 07-04-2022 End: 07-04-2022 ambulatory Jenaro Lynch Other [employer] Other Start: 07-04-2022 Office outpatient vi sit 25 minutes Jenaro Lynch [facility] Start: 06-30-2022 End: 06-30-2022 ambulatory Jenaro Lynch Other [employer] Other Start: 06-30-2022 Telephone encounter Jenaro Lynch [facility] Start: 05-25-2022 End: 05-25-2022 ambulatory Jenaro Lynch Other [employer] Other Start: 05-25-2022 Telephone encounter Jenaro Lynch [facility] Start: 04-25-2022 End: 04-25-2022 ambulatory Jenaro Lynch Other [employer] Other Start: 04-25-2022 Telephone encounter Jenarogorge Lynch [facility] [place] Start: 04-19-2022 End: 04-19-2022 ambulatory Jenarogorge Lynch Other [employer] Other Start: 04-19-2022 Telephone encounter Jenarogorge Lynch [facility] [place] Start: 03-22-2022 End: 03-22-2022 ambulatory Jenarogorge Lynch Other [employer] Other Start: 03-22-2022 Telephone encounter Jenarogorge Lynch [facility] [place] Start: 03-01-2022 End: 03-01-2022 ambulatory Jenarogorge Lynch Other [employer] Other Start: 03-01-2022 Telephone encounter Jenarogorge Fraustojoe [facility] [place] Start: 02-18-2022 End: 02-18-2022 ambulatory Jenarogorge Lynch Other [employer] Other Start: 02-18-2022 Telephone encounter Jenarogorge yLnch [facility] [place] Start: 02-15-2022 End: 02-15-2022 ambulatory Verona Whaley Other [employer] Other Start: 02-15-2022 Office outpatient vi sit 25 minutes Jenaro Lynch [facility] [place] Start: 02-15-2022 Telephone encounter Verona Whaley [facility] Start: 01-21-2022 End: 01-21-2022 ambulatory Jenaro Lynch Other [employer] Other Start: 01-21-2022 Telephone encounter Jenaro Lynch [facility] [place] Start: 01-19-2022 End: 01-19-2022 ambulatory Jenaro Lynch Other [employer] Other Start: 01-19-2022 Telephone encounter Jenaro Lynch [facility] [place] Start: 01-13-2022 End: 01-13-2022 ambulatory Jenaro Lynch Other [employer] Other Start: 01-13-2022 Telephone encounter Jenaro Lynch [facility] [place] Start: 12-23-2021 End: 12-23-2021 ambulatory Jenaro Lynch Other [employer] Other Start: 12-23-2021 Telephone encounter Jenaro Lynch [facility] [place] Start: 11-24-2021 End: 11-24-2021 ambulatory Jenarogorge Lynch Other [employer] Other Start: 11-24-2021 Telephone encounter Jenaro Lynch [facility] [place] Start: 11-03-2021 Rx Renewal Jenaro Lynch Work Phone: [facility] 250 DO Work Phone: Start: 10-26-2021 Office outpatient vi sit 25 minutes Jenaro Mari Jettjoe Work Phone: [facility] [facility] 250 DO Work Phone: Start: 10-25-2021 End: 10-25-2021 ambulatory Jenarogorge Lynch Other [facility] Other Start: 10-25-2021 Telephone encounter Jenarogorge Lynch [facility] [place] Start: 10-19-2021 End: 10-19-2021 ambulatory Aziz Bakhous Other [facility] Other Start: 10-19-2021 Office outpatient vi sit 25 minutes Aziz Bakhous [facility] Start: 10-18-2021 End: 10-18-2021 ambulatory Aziz Bakhous Other [facility] Other Start: 10-18-2021 Telephone encounter Amina Fagan [facility] Start: 10-12-2021 End: 10-13-2021 ambulatory DUARTE HENRY . Facility: Start: 10-08-2021 End: 10-08-2021 ambulatory Jenaro Lynch Other [facility] Other Start: 10-08-2021 Telephone encounter Jenaro Lynch [facility] [place] Start: 09-22-2021 End: 09-22-2021 ambulatory Jenaro Lynch Other [facility] Other Start: 09-22-2021 Telephone encounter Jenaro Lynch [facility] [place] Start: 09-21-2021 End: 09-21-2021 ambulatory Jenaro Lynch Other [facility] Other Start: 09-21-2021 Telephone encounter Jenaro Lynch [facility] [place] Start: 08-09-2021 End: 08-09-2021 ambulatory Jenaro Lynch Other [facility] Other Start: 08-09-2021 Telephone encounter Jenaro Fraustos [facility] [place] Start: 08-02-2021 End: 08-02-2021 ambulatory Jenaro Lynch Other [facility] Other Start: 08-02-2021 Telephone encounter Jenaro Fraustos [facility] [place] Start: 07-27-2021 End: 07-27-2021 ambulatory Jenaro Fraustos Other [facility] Other Start: 07-27-2021 Office outpatient vi sit 25 minutes Jenaro Fraustos [facility] [place] Start: 06-23-2021 End: 06-23-2021 ambulatory Jenaro Fraustos Other [facility] Other Start: 06-23-2021 Telephone encounter Jenaro Lynch [facility] Start: 06-22-2021 Rx Renewal Jenaro Lynch Work Phone: [facility] 250 DO Work Phone: Start: 05-03-2021 End: 05-03-2021 ambulatory Jenaro Lynch Other [facility] Other Start: 05-03-2021 Telephone encounter Jenaro Lynch [facility] [place] Procedures Date Procedure Procedure Detail Performing Clinician Start: 11-26-2023 Blood Culture 1 DO Phillipmaría guerra Syed Work Phone: Start: 11-26-2023 Blood Culture 2 DO Jose Angel charlie Syed Work Phone: Start: 11-15-2023 Blood Culture 1 DO Jose Angel charlie Syed Work Phone: Start: 11-15-2023 Blood Culture 2 [...] procedure 10/21/2024 8:00 AM EDT Office Visit [facility] [address] [facility] [address] [place] [address] Dolores Feldman, PATHOLOGY ASSISTANT-COMMUNITY ARTIST [address] [facility] [address] [place] [address] [facility] Start: 02-04-2024 Influenza vaccination Influenza Vaccine (Season Ended) [facility] Start: 11-15-2023 FUV, Provider: Raulito Inman, Status: Pen, Time: 2:40 PM FUV, Provider: Raulito Inman, Status: Pen, Time: 2:40 PM [facility] 250 DO Work Phone: Start: 10-02-2023 Acid Fast Culture Acid Fast Culture [facility] Start: 09-30-2023 Blood Culture 1 Blood Culture 1 [facility] Start: 09-30-2023 Blood Culture 2 Blood Culture 2 [facility] Start: 09-30-2023 Wound Culture Wound Culture [facility] Start: 09-21-2023 Abscess Culture Abscess Culture [facility] Start: 08-10-2023 Acid Fast Culture Acid Fast Culture [facility] Start: 08-05-2023 Wound Culture Wound Culture [facility] Start: 07-12-2023 Duplex scan of lower limb veins US venous duplex LE BI [facility] Start: 07-12-2023 US Lower extremity vein - bilateral [facility] Start: 07-12-2023 Duplex scan veins of upper limb US venous duplex UE LT [facility] Start: 07-12-2023 US Upper extremity vein - left [facility] Start: 02-15-2023 FUV, Provider: Dolores Velazquez, Status: Pen, Time: 10:00 AM FUV, Provider: Dolores Velazquez, Status: Pen, Time: 10:00 AM [facility] 600 DO Work Phone: Start: 02-03-2023 COVID-19 Vaccine ( season) COVID-19 Vaccine ( season) [facility] Start: 01-25-2023 STRESS NUC, Provider: CHARISSE HHVI NUCLEAR 01,[id number], Status: Pen, Time: 8:30 AM STRESS NUC, Provider: CHARISSE HHVI NUCLEAR 01,[id number], Status: Pen, Time: 8:30 AM [facility] 600 DO Work Phone: Start: 07-12-2022 FUV, Provider: Raulito Inman, Status: Pen, Time: 9:20 AM FUV, Provider: Raulito Inman, Status: Pen, Time: 9:20 AM -[facility] 250 DO Work Phone: Start: 10-26-2021 FUV, Provider: Raulito Inman, Status: Pen, Time: 9:30 AM FUV, Provider: Raulito Inman, Status: Pen, Time: 9:30 AM -[facility] 250 DO Work Phone: Start: 03-05-2019 Pneumococcal Vaccine: Pediatrics (0 to 5 Years) and At-Risk Patients (6 to 64 Years) (2 of 2 - PCV) Pneumococcal Vaccine: Pediatrics (0 to 5 Years) and At-Risk Patients (6 to 64 Years) (2 of 2 - PCV) [facility] Start: 2015 Zoster Vaccines (1 of 2) Zoster Vaccines (1 of 2) [facility] Start: 1987 DTaP/Tdap/Td Vaccines (1 - Tdap) DTaP/Tdap/Td Vaccines (1 - Tdap) [facility] Start: 1984 Hepatitis B Vaccines (1 of 3 - 19+ 3-dose series) Hepatitis B Vaccines (1 of 3 - 19+ 3-dose series) [facility] Start: 1984 Urine screening for protein Diabetes: Urine Protein Screening [facility] Start: 1983 Hepatitis C screening Hepatitis C Screening [facility] Start: 1975 Diabetic foot examination Diabetes: Foot Exam [facility] Start: 1975 Glaucoma screening Diabetes: Retinopathy Screening [facility] Start: 1966 MMR Vaccines (1 of 1 - Standard series) MMR Vaccines (1 of 1 - Standard series) [facility] Start: 1965 Hemoglobin A1c measurement Diabetes: Hemoglobin A1C [facility] Start: 1965 HIV screening HIV Screening [facility] Start: 1965 Lipid panel Lipid Panel [facility] Start: 1965 Screening for malignant neoplasm of colon [facility] Start: 1965 Yearly Adult Physical Yearly Adult Physical [facility] Patient Education Dependent Edema (DC) [facility] Work Phone: Patient referral [facility] Work Phone: Immunizations Immunization Date Immunization Notes Care Provider Sachin pettit 11-13-2020 Pfizer-BioNTech COVI D-19 Vacc 30 MCG/0.3ML Intramuscular Suspension Jenaro Lynch Work Phone: [facility] 10-23-2020 Pfizer-BioNTech COVI D-19 Vacc 30 MCG/0.3ML Intramuscular Suspension Jenaro Lynch Work Phone: [facility] 01-14-2019 influenza, seasonal, injectable Jenaro Lynch Other [facility] 01-14-2019 influenza virus vacc ine, unspecified formulation Yeyo ROWE [facility] 04-02-2018 influenza virus vacc ine, unspecified formulation Yeyo ROWE [facility] 04-02-2018 influenza, injectabl e, quadrivalent, preservative free DO Jenaro Lynch Work Phone: [facility] 03-05-2018 influenza virus vacc ine, unspecified formulation Jenaro Lynch Work Phone: [facility] 250 DO Work Phone: 03-05-2018 pneumococcal polysaccharide vaccine, 23 valent Jenaro Lynch Work Phone: [facility] 250 DO Work Phone: 03-07-2016 influenza virus vacc ine, unspecified formulation Yeyo ROWE [facility] 03-07-2016 influenza, injectabl e, quadrivalent, preservative free Jenaro Lynch Work Phone: [facility] 600 DO Work Phone: 02-22-2016 pneumococcal polysaccharide vaccine, 23 valent Jenaro Lynch Work Phone: [facility] Payers Date Payer Category Payer Unknown 2023 Self-pay [id number] 2022 Private Health Insurance [id number] 2022 Private Health Insurance [id number] 2022 Private Health Insurance [id number] 2022 Medicaid [id number] 1965 Unknown [id number] 2.16.84 0.1.148195.3.579.2.593 1965 Unknown [id number] 2.16.8 40.1.553093.3.579.2.1068 1965 Unknown [id number] 2.16. 840.1.828516.3.579.2.356 1965 Unknown [id number] 2.16. 840.1.967161.3.579.2.356 1965 Unknown [id number] 2.16. 840.1.464972.3.579.2.356 1965 Unknown [id number] 2.16.8 40.1.060159.3.579.2.72 1965 Unknown [id number] 2.16.8 40.1.954837.3.579.2.128 1965 Unknown [id number] 2.16.8 40.1.678590.3.579.2.128 1965 Unknown [id number] 2.16.8 40.1.769483.3.579.2.1285 1965 Unknown [id number] 2.16.8 40.1.612290.3.579.2.1285 1965 Unknown [id number] 2.16.8 40.1.279328.3.579.2.1285 1965 Unknown [id number] 2.16.8 40.1.168769.3.579.2.1285 1965 Unknown [id number] 2.16.8 40.1.122892.3.579.2.1285 1965 Unknown [id number] 2.16.8 40.1.497108.3.579.2.128 1965 Unknown [id number] 2.16.8 40.1.954359.3.579.2.727 1965 Unknown [id number] 2.16.8 40.1.174870.3.579.2. 1965 Unknown [id number] 2.16.8 40.1.059990.3.579.2.727 1965 Unknown [id number] 2.16.8 40.1.953093.3.579.2. 1965 Unknown [id number] 2.16.8 40.1.783566.3.579.2.727 1965 Unknown [id number] 2.16.8 40.1.508293.3.579.2.727 1965 Unknown [id number] 2.16.8 40.1.628537.3.579.2.727 1965 Unknown [id number] 2.16.8 40.1.012198.3.579.2.727 1965 Unknown [id number] 2.16.8 40.1.454981.3.579.2.727 1965 Unknown [id number] 2.16.8 40.1.657154.3.579.2.72 1965 Unknown [id number] 2.16.8 40.1.624377.3.579.2.727 1965 Unknown [id number] 2.16.8 40.1.505580.3.579.2.727 1965 Unknown [id number] 2.16.8 40.1.551911.3.579.2.727 1965 Unknown [id number] 2.16.8 40.1.710989.3.579.2.727 1965 Unknown [id number] 2.16.8 40.1.697323.3.579.2. 1965 Unknown [id number] 2.16.8 40.1.948207.3.579.2.7 1965 Unknown [id number] 2.16.8 40.1.806277.3.579.2.1286 1965 Unknown [id number] 2.16.8 40.1.646334.3.579.2.1286 1965 Unknown [id number] 2.16.8 40.1.728942.3.579.2.4 1965 Unknown [id number] 2.16.8 40.1.640251.3.579.2.1244 1959 Unknown [id number] 2.1 6.840.1.772042.19 Unknown [id number] 2.16.8 40.1.464099.3.579.2.531 Unknown [id number] 2.16.8 40.1.710337.3.579.2.531 Unknown [id number] 2.16.8 40.1.740752.3.579.2.531 Unknown [id number] 2.16.8 40.1.539742.3.579.2.531 Unknown [id number] 2.16.8 40.1.229271.3.579.2.531 Unknown [id number] 2.16.8 40.1.761612.3.579.2.531 Social History Date Type Detail Facility Start: 08-08-2023 Caffeine use Caffeine use [facility] Other Comment on above: 2 cups coffee, 4-6 c ups tea daily, occaional soda; qauit 07/2020; Start: 08-08-2023 Sex Assigned At F [facility] Start: 07-14-2020 End: 07-12-2023 Tobacco smoking status NHIS Smoker (finding) [facility] Start: 1965 Sex Assigned At Male F [facility] Start: 11-23-2022 End: 10-23-2023 Tobacco smoking status Heavy tobacco smoker (finding) [facility] Tobacco smoking status Never [facility] Start: 10-24-2023 Tobacco smoking stat us NHIS Ex-smoker [facility] End: 06-05-2020 History of tobacco use Cigarette Smoker [facility] Work Phone: Start: 10-24-2023 Tobacco use and exposure Smokeless tobacco non-user [facility] Work Phone: Start: 10-24-2023 Alcoholic beverage intake Lifetime non-drinker (finding) [facility] Work Phone: Start: 1965 Sex assigned at Not on file [facility] Work Phone: Start: 10-14-2023 End: 10-24-2023 Exposure to SARS-CoV-2 (event) Not sure [facility] Medical Equipment Procedure Code Equipment Code Equipment [...] bilia ry stentMultiple peripheral artery stent, bare-metal [id number] [facility] Start: 07-14-2020 Functional Status Date Assessment Result Facility 10-23-2023 Functional Status No [facility] 06-02-2023 Functional Status N/A [facility] 02-14-2023 Functional Status N/A [facility] 01-30-2023 Functional Status N/A [facility] 11-23-2022 Functional Status N/A [facility] Clinical Notes 06-23-2021 to 10-24-2023 Raulito Inman MD - 10/24/2023 10:20 AM EDTPatient Instructions Note Date & Type Note Facility 10-24-2023 Note Sinus tachycardia Rightward axis Poor anterior R wave progression QTc 481 ms [facility] 10-24-2023 History of Present illness Narrative [...] discussion and plan. documented in this encounter [facility] Work Phone: 10-24-2023 Instructions Rosemary Benavides LPN [...] a cardiac standpoint documented in this encounter [facility] Work Phone: 07-13-2023 Hospital Discharge instructions Follow Up Care 07/13/2023 12:04:02 With:SOLEDAD HERRERA, Yeyo Blum, URL Address: [address] [place] [address]- When: Unknown [facility] 06-26-2023 Evaluation note Encounter Date Diagnosis Assessment Notes Jun, Hyperlipidemia (ICD-10 - E78.5) [facility] Other 12-29-2023 Hospital Discharge instructions Patient Education [...] urethra. Follow these instructions at home: Take gnnb-muw-vmzdomg and prescription medicines only as told by [...] provider. Document Revised: 12/08/2021 Document Reviewed: 12/08/2021 [email or web address] Patient Education 2022 [employer]. [facility] 06/01/2023 14:05:36 With:SOLEDAD HERRERA, Yeyo lBum, URL Address: [address] [place] [address]- When: Unknown [facility] 12-12-2023 Evaluation note* Encounter Date Diagnosis Assessment Notes Treatment Notes Treatment Clinical Notes May, 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) [facility] Other 11-24-2023 Evaluation note* Encounter Date Diagnosis Assessment Notes Treatment Notes Treatment Clinical Notes Apr, Diabetic nephropathy (ICD-10 - E11.21) [facility] Other 11-07-2023 Evaluation note* Encounter Date Diagnosis Assessment Notes Treatment Notes Treatment Clinical Notes Apr, Left arm pain (ICD-10 - M79.602) [facility] Other 11-02-2023 Evaluation note* Encounter Date Diagnosis [...] and to have his surgery as scheduled. 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 He was found to have [...] to continue to montior this at home. [facility] Other 10-09-2023 Note [id number] 02-14-2023 Hospital Discharge instructions Patient [...] including vitamins, herbs, eye drops, creams, and ifkw-yls-uesbpqa medicines. Any problems you or family members [...] provider tells you to take them. Taking semb-fzz-hiqzphx medicines, vitamins, herbs, and supplements. Surgery safety [...] provider. Document Revised: 02/15/2022 Document Reviewed: 02/15/2022 [email or web address] Patient Education 2022 [employer]. [facility]09-12-2023 Note [id number]:127[facility] 02-14-2023 [id number]:127[facility]08-28-2023 Hospital Discharge instructions Patient Education 01/30/2023 [...] including vitamins, herbs, eye drops, creams, and gbkt-obl-bcnyago medicines. ?Whether you are or may be [...] provider. Document Revised: 02/02/2022 Document Reviewed: 12/25/2020 [email or web address] Patient Education 2022 [email or web address] 01/30/2023 11:22:30 Cystoscopy Cystoscopy Cystoscopy is [...] including vitamins, herbs, eye drops, creams, and tfxv-bna-ttmazkv medicines. Any problems you or family members [...] provider tells you to take them. Taking cxvm-dzl-kkgedbf medicines, vitamins, herbs, and supplements. Tests You [...] Follow these instructions at home: Medicines Take kvft-foj-iofjvzr and prescription medicines only as told by [...] provider. Document Revised: 02/02/2022 Document Reviewed: 01/01/2021 [email or web address] Patient Education 2022 [employer]. [facility] Up [facility] 11/23/2022 13:02:56 With:SOLEDAD HERRERA, Yeyo Blum, URL Address: [facility] [address] [place] [address]- [phone] When: Unknown Comments:sched cysto/uros [facility] 08-15-2023 Evaluation note* Encounter Date Diagnosis Assessment Notes Treatment Notes Treatment Clinical Notes Jan, Diabetic nephropathy (ICD-10 - E11.21) [facility] Other 06-29-2023 Evaluation note* Encounter Date Diagnosis [...] reviewed. 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 [facility] Other 06-21-2023 Hospital Discharge instructions Patient Education [...] provider. Document Revised: 08/11/2021 Document Reviewed: 05/07/2021 [email or web address] Patient Education 2021 [employer]. [facility] 09/14/2022 14:23:26 With:SOLEDAD HERRERA, Yeyo Blum, URL Address: [facility] [address] , [place] [address]- When: Unknown [facility] 05-05-2023 Evaluation note* Encounter Date Diagnosis Assessment Notes Treatment Notes Treatment Clinical Notes October, Erectile dysfunction, unspecified erectile dysfunction type (ICD-10 - N52.9) [facility] Other 04-19-2023 Evaluation note* Encounter Date Diagnosis Assessment Notes Treatment Notes Treatment Clinical Notes Sep, 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) [facility] Other 04-12-2023 Evaluation note* Encounter Date Diagnosis Assessment Notes Treatment Notes Treatment Clinical Notes Sep, 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) Sep, 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) [facility] Other 03-20-2023 Evaluation note* Encounter Date Diagnosis Assessment Notes Treatment Notes Treatment Clinical Notes Aug, Diabetic nephropathy (ICD-10 - E11.21) [facility] Other 03-03-2023 Evaluation note* Encounter Date Diagnosis Assessment Notes Treatment Notes Treatment Clinical Notes Aug, Pain in right leg (ICD-10 - M79.604) [facility] Other 03-02-2023 Evaluation note* Encounter Date Diagnosis Assessment Notes Treatment Notes Treatment Clinical Notes Aug, Pain in right leg (ICD-10 - M79.604) [facility] Other 02-20-2023 Evaluation note* Encounter Date Diagnosis Assessment Notes Treatment Notes Treatment Clinical Notes Jul, Intractable episodic headache, unspecified headache type (ICD-10 - R51.9) [facility] Other 02-14-2023 Evaluation note* Encounter Date Diagnosis Assessment Notes Treatment Notes Treatment Clinical Notes Jul, Acute intractable headache, unspecified headache type (ICD-10 - R51.9) [facility] Other 02-08-2023 Evaluation note* Encounter Date Diagnosis Assessment Notes Treatment Notes Treatment Clinical Notes Jul, Headache (ICD-10 - R51.9) [facility] Other 01-30-2023 Evaluation note* Encounter Date Diagnosis Assessment Notes Treatment Notes Treatment Clinical Notes 30 Ramon, 2023 Acute intractable headache, unspecified headache type (ICD-10 [...] medication and we will continue to monitor. [facility] Other 12-21-2022 Evaluation note* Encounter Date Diagnosis Assessment Notes Treatment Notes Treatment Clinical Notes May, Diabetic nephropathy (ICD-10 - E11.21) [facility] Other 11-21-2022 Evaluation note* Encounter Date Diagnosis Assessment Notes Treatment Notes Treatment Clinical Notes Apr, Diabetic nephropathy (ICD-10 - E11.21) [facility] Other 11-15-2022 Evaluation note* Encounter Date Diagnosis Assessment Notes Treatment Notes Treatment Clinical Notes Apr, Pain in right leg (ICD-10 - M79.604) [facility] Other 10-18-2022 Evaluation note* Encounter Date Diagnosis Assessment Notes Treatment Notes Treatment Clinical Notes Mar, Diabetic nephropathy (ICD-10 - E11.21) [facility] Other 09-13-2022 Evaluation note* Encounter Date Diagnosis Assessment Notes Treatment Notes Treatment Clinical Notes Feb, Hypertensive chronic kidney disease with stage 1 through stage 4 chronic kidney disease, or unspecified chronic kidney disease (ICD-10 - I12.9) [facility] Other 09-13-2022 Evaluation note* Encounter Date Diagnosis [...] scheduled. 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 Feb, Pain in right leg [...] Noted upon review of blood work results. [facility] Other 08-19-2022 Evaluation note* Encounter Date Diagnosis Assessment Notes Treatment Notes Treatment Clinical Notes Jan, Diabetic nephropathy (ICD-10 - E11.21) [facility] Other 08-17-2022 Evaluation note* Encounter Date Diagnosis Assessment Notes Treatment Notes Treatment Clinical Notes Jan, Diabetic nephropathy (ICD-10 - E11.21) [facility] Other 07-21-2022 Evaluation note* Encounter Date Diagnosis Assessment Notes Treatment Notes Treatment Clinical Notes Dec, Diabetic nephropathy (ICD-10 - E11.21) [facility] Other 06-22-2022 Evaluation note* Encounter Date Diagnosis Assessment Notes Treatment Notes Treatment Clinical Notes Nov, Diabetic nephropathy (ICD-10 - E11.21) [facility] Other 05-23-2022 Evaluation note* Encounter Date Diagnosis Assessment Notes Treatment Notes Treatment Clinical Notes October, Diabetic nephropathy (ICD-10 - E11.21) [facility] Other 05-17-2022 Evaluation note* Encounter Date Diagnosis [...] E11.59) October, 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 Inman. For this October, Other He did quit smoking since July 2020 [facility] Other 05-16-2022 Evaluation note* Encounter Date Diagnosis Assessment Notes Treatment Notes Treatment Clinical Notes October, Hypertensive chronic kidney disease with stage 1 through stage 4 chronic kidney disease, or unspecified chronic kidney disease (ICD-10 - I12.9) October, Stage 3 chronic kidney disease, unspecified whether stage 3a or 3b CKD (ICD-10 - N18.30) [facility] Other 05-06-2022 Evaluation note* Encounter Date Diagnosis Assessment Notes Treatment Notes Treatment Clinical Notes October, Pain in right leg (ICD-10 - M79.604) October, Pain in left leg (ICD-10 - M79.605) [facility] Other 04-20-2022 Evaluation note* Encounter Date Diagnosis Assessment Notes Treatment Notes Treatment Clinical Notes Sep, Diabetic nephropathy (ICD-10 - E11.21) [facility] Other 04-19-2022 Evaluation note* Encounter Date Diagnosis Assessment Notes Treatment Notes Treatment Clinical Notes Sep, Anxiety (ICD-10 - F41.9) Sep, Hypertensive chronic kidney disease with stage 1 through stage 4 chronic kidney disease, or unspecified chronic kidney disease (ICD-10 - I12.9) [facility] Other 03-07-2022 Evaluation note* Encounter Date Diagnosis Assessment Notes Treatment Notes Treatment Clinical Notes Aug, Anxiety (ICD-10 - F41.9) [facility] Other 02-22-2022 Evaluation note* Encounter Date Diagnosis [...] 12 pound weight loss from last visit. [facility] Other [id number] Evaluation note* Encounter Date Diagnosis Assessment Notes Treatment Notes Treatment Clinical Notes Jun, Diabetic nephropathy (ICD-10 - E11.21) [facility] Other Evaluation + Plan note Future Appointments Appointment Date:12/21/2022 11:00:00 AM Scheduled Provider: Location:[facility] Appointment Type:URO Nurse Visit Appointment Date:01/30/2023 10:30:00 AM Scheduled Provider:Yeyo ROWE MD Location:[facility] Appointment Type:URO Office Visit [facility] Evaluation + Plan note Future Appointments Appointment Date:01/30/2023 10:15:00 AM Scheduled Provider:Yeyo ROWE MD Location:[facility] Appointment Type:URO Office Visit [facility] [place] Evaluation + Plan note Future Appointments Appointment Date:02/01/2023 10:00:00 AM Scheduled Provider: Location:[facility] Appointment Type:Urology CALL PAT FT Appointment Date:02/08/2023 09:00:00 AM Scheduled Provider: Location:[facility] Appointment Type:Urology FT Appointment Date:02/14/2023 09:15:00 AM Scheduled Provider: Location:[facility] Appointment Type:Urology FT [facility] evaluation + Plan note Future Appointments Appointment Date:02/14/2023 09:15:00 AM Scheduled Provider: Location:[facility] Future Appointments Appointment Date:03/20/2023 08:45:00 AM Scheduled Provider: Location:[facility] Appointment Type:URO Nurse Visit Appointment Date:04/05/2023 08:00:00 AM Scheduled Provider:Yeyo ROWE MD Location:[facility] Appointment Type:URO Office Visit [facility] + Plan note Future Appointments Appointment Date:05/03/2023 08:45:00 AM Scheduled Provider:Yeyo ROWE MD Location:[facility] Appointment Type:URO Office Visit [facility] Evaluation + Plan note Future Appointments Appointment Date:07/03/2023 10:15:00 AM Scheduled Provider:Yeyo ROWE MD Location:[facility] Appointment Type:URO Office Visit [facility] evaluation + Plan note Future Appointments Appointment Date:10/23/2023 09:30:00 AM Scheduled Provider:Padmini Montes MD Location[facility] Appointment Type:Vascular Follow Up (FT) [facility] noteNo InformationNort iDiDiD Other evalubawgs noteNo assessment information available [facility] Work Phone: evaluation note* Diagnosis History of PTCA Postsurgical percutaneous transluminal coronary angioplasty status Hyperlipidemia, unspecified hyperlipidemia type Encounter for pre-operative cardiovascular clearance Former smoker Personal history of tobacco use, presenting hazards to health documented in this encounter [facility] Work Phone: History general Narrative - Reported* [...] Heart stent placed by Dr. Bowie at [facility] 07/26/15 Surgical History Left knee arthroscopy 11/2015 Surgical History carpal tunnel release, right an d left 08/2016 Surgical History hydrocele repair 08/[address] [facility] 04/02/18 Surgical History Lt LE iliac DSA, angioplasty & stenting 09/27/2018 Surgical History Left Angiogram with one stent - Dr. Boss 07/2020 Hospitalization History Deep Depression, Anxiety; [facility] 11-11-[address] [facility] hypoxemia and hyper capnic respirtory failure 11/11/16 Hospitalization History chest pain [facility] 04/02/18 [place] Other History of Present illness NarrativeReturns in [...] impact on blood pressure and diabetes [facility] Work Phone: History of Present [...] medication regimen. He denies medication side effects. [facility] 600 DO Work Phone: History of [...] medication regimen. He denies medication side effects. [facility] 250 DO Work Phone: Hospital course Narrative No data available for this section [facility] Discharge instructions No data available for this section [facility] note No data available for this section [facility] Chief Complaint SOLOMON FELDMAN is being seen [...] Procedures ECG 12 Lead Raulito Inman MD [address] [place] [address], [address] [address] Referral ID Status Reason Start Date Expiration Date V isits Requested Visits Authorized [id number] Authorized 10/24/2023 10/23/2024 1 1 Specialty Diagnoses / Procedures Referred By Brett mandujano Referred To Contact Cardiology Diagnoses History of PTCA Procedures Follow Up In Cardiology Raulito Inman MD [address] [place] [address], [address] [address] Referral ID Status Reason Start Date Expiration Date V isits Requested Visits Authorized [id number] Authorized 10/24/2023 10/23/2024 1 1 Reason CANCELLED consult and treat; previous patient of Dr. Sharpe last seen in 2020; persisting intractable headaches Diagnosis 1 Acute intractable he adache, unspecified headache type (R51.9) Referral Organization [facility] Referring Provider First Name Jenaro Referring Provider Last Name Syed Referring Provider Specialty Family Pr[place] Referred Organization [facility] Referred Provider Lyssa Sharpe Referred Address [address] [place], [place],[address] Referred Provider Specialty Neurology Referral Priority Routine General Notes Verona Burton Sarika 023 10:19:08 AM >Received today. [facility] request us to fill out their form and attach to Referral and send it to them and they will call patient to schedule. 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 DATE CREATED AUTHOR AUTHOR'S ORGANIZ ATION 01/27/2023 [facility] DATE CREATED AUTHOR AUTHOR'S ORGANIZ ATION 02/16/2023 [facility] DATE CREATED AUTHOR AUTHOR'S ORGANIZ ATION 02/16/2023 [facility] DATE CREATED AUTHOR AUTHOR'S ORGANIZ ATION 10/22/2023 [facility] DATE CREATED AUTHOR AUTHOR'S ORGANIZ ATION 10/26/2023 [facility] DATE CREATED AUTHOR AUTHOR'S ORGANIZ ATION 11/16/2023 [facility] DATE CREATED AUTHOR AUTHOR'S ORGANIZ ATION 11/25/2023 [facility] DATE CREATED AUTHOR AUTHOR'S ORGANIZ ATION 11/29/2023 [facility] DATE CREATED AUTHOR AUTHOR'S ORGANIZ ATION 12/21/2023 [facility] DATE CREATED AUTHOR AUTHOR'S ORGANIZ ATION 12/24/2023 [facility] DATE CREATED AUTHOR AUTHOR'S JOHN DAVIS 01/02/[address] [facility] FOR RECORDS PERTAINING TO PATIENTS [...] BE BASED ON THE PRIMARY CLINICAL RECORDS. [facility]. provides no warranty or guarantee of the accuracy or completeness of information in this document.
== END 2024-01-04 15:25 | disposition home or self-care (01) ==
LOC: WC 15:24
PROVIDERS: PCP Family Medicine; Visit Provider Physician Assistant
DX: T87.89 Other complications of amputation stump (principal)
CPT/HCPCS: 29515

== ENCOUNTER 2024-01-10 15:41 | Outpatient (OUT) | payer OTHER, SELFPAY | END 2024-01-10 15:42 | disposition home or self-care (01) | LOC: WC 15:41 | PROVIDERS: PCP Family Medicine; Visit Provider Podiatrist Foot & Ankle Surgery | DX: T87.89 Other complications of amputation stump (principal) | CPT/HCPCS: G0463 ==

== ENCOUNTER 2024-01-12 10:20 | Outpatient (OUT) | payer OTHER, SELFPAY ==
--- OUTSIDE RECORDS SUMMARY | 2024-01-12 10:27 | XMS_ITS | CCD ---
Author Organization [facility] Inform ion [facility] Care Team Providers Care Pharmaceutical Assistant Name Role Phone Jenaro Lynch Unavailable Unavailable Unavailable Jenaro Lynch Unavailable Norris Faganjuan Unavailable Judd Verona Unavailable Cameron Akin Unavailable DO Jenaro Lynch Primary Care Provider JERARDO Mclaughlin Attending Provider [phone] DO Jnearo Lynch Attending Provider [phone] ELAINE ., DUARTE Attending Unavailable ELAINE .DUARTE Admitting Unavailable DR LYSSA PERDOMO Consulting Unavailable SYED, DR EASON Primary Care Unavailable DUARTE MÁRQUEZ Consulting Unavailable JENARO LYNCH Primary Care Physician [phone] Syed, Dr. Jenaro Orona Primary Care UnavailDolores Vaughn Attending Unavailable Dolores Feldman Attending Unavailable Dolores Feldman Referring Unavailable Syed, Dr. Jenaro Orona Primary Care UnavailDolroes Vaughn Attending Unavailable Dolores Feldman Referring Unavailable Syed, Dr. Jenaro Orona Primary Care Unavailmaría Inman II, Dr. Raulito Orona Referring Unavailable Syed, Dr. Jenaro Orona Primary Care Unavailmaría Inman II, Dr. Rauilto Orona Attending Unavailable DO Jenaro Lynch Primary Care Provider MD Nancy Wilson Emergency Provider DO Jenaro Lynch Primary Care Provider [phone] MD Nancy Wilson Emergency Provider JERARDO Mclaughlin Attending Provider [phone] JERARDO Mclaughlin Referring Provider LINDSEY Soto Attending Provider DO Jenaro Lynch Primary Care Provider Jenaro Lynch DO Primary Care Provider SIMON, MOHAMED F Attending Unavailable PAULA SOTO Referring Unavailable SIMON, MOHAMED F Admitting Unavailable [...] Attending Unavailable ROWE, Yeyo R Attending Unavailable KunDO Jenaro diaz Primary Care Provider [phone] SIMON, MOHAMED F Attending Unavailable SIMON, MOHAMED F Attending Unavailable RAULTIO INMAN Attending Unavailable JENARO LYNCH Primary Care Unavailable BERNARD DE LA CRUZ Attending Unavailable JENARO LYNCH Primary Care Unavailable Jenaro Lynch Primary Care Unavailable Shana Mclaughlin Admitting Unavailable LowShana serrano Attending Unavailable Shana Mclaughlin Referring Unavailable Jenaro Lynch Primary Care Unavailable Nancy Wilson Admitting Unavailable Nancy Wilson Attending Unavailable Paula Soto Admitting Unavailable Curt, Paula Hooker Attending Unavailable Paula Soto Admitting Unavailable Paula Soto Attending Unavailable Paula Soto Admitting Unavailable Paula Soto Attending Unavailable Jenaro Lynch Primary Care Unavailable Paula Soto Admitting Unavailable Paula Soto Attending Unavailable Yeyo ROWE Attending Unavailable Simon, Mohamed F. Admitting Unavailable Simon, Mohamed F. Attending Unavailable Simon, Mohamed F. Referring Unavailable Simon, Mohamed F. Admitting Unavailable Simon, Mohamed F. Attending Unavailable Simon, Mohamed F. Referring Unavailable Simon, Mohamed F. Admitting Unavailable Simon, Mohamed F. Attending Unavailable Simon, Mohamed F. Referring Unavailable Allergies Allergy Classification Reported Allergen(s) Allergy Type Date of Onset Reaction(s) Facility (20 sources) natural latex rubber; Translations: [LATEX] Allergy to substance (finding) 03-27-20 23 Itching (finding), Eruption of skin (disorder) [facility] (20 sources) Penicillins; Translations: [Penicillins] Allergy to drug (finding) 11-05-19 14 Anaphylactoid reaction (disorder) [facility] (20 sources) Acetaminophen / oxyCODONE Drug Allergy vomiting [facility] [employer] Other (20 sources) tamsulosin; Translations: [TAMSULOSIN] Drug Allergy 07-14-19 21 hives [facility] (20 sources) PENICIILIN Propensity to adverse reactions SWELLING OF AIRWAY [facility] [employer] Other (10 sources) Acetaminophen; Translations: [ACETAMINOPHEN] Drug Allergy 07-14-19 21 Vomiting [facility] (11 sources) oxyCODONE; Translations: [Oxycodone] Drug Allergy 02-08-20 17 Vomiting [facility] (1 source) Penicillins Drug allergy (disorder) 09-23-19 14 [facility] Repository (16 sources) Penicillin G; Translations: [penicillin G benzathine] Drug Allergy [facility] (8 sources) Penicillin Drug Allergy anaphylaxis [facility] [employer] Other (1 source) Latex Allergy to substance 03-27-20 Unknown [facility] (1 source) Penicillins Drug Allergy 03-27-20 23 Anaphylaxis [facility] Work Phone: (4 sources) Isosorbide; Translations: [ISOSORBIDE MONONITRATE] Drug Allergy 08-05-19 [facility] (1 source) Penicillins Drug allergy (disorder) 07-31-19 [facility] Repository (1 source) tamsulosin Drug Allergy 07-31-19 [facility] Repository Medications Current Medications Medication [...] 1:00am July 14, 2020 12:39pm Start: 10-10-2014 [place] 325 mg-5 mg oral tablet 1 tab(s), [...] inhaler (5 sources) Corticosteroid, beta2-Adrenergic Agonist Start: 02-07-2024 Budesonide-Formoterol (Symbicort) 160-4.5 mcg/actuation HFA aerosol inhaler [...] 30 Refills: 6 Ordered: 11-Jan-2023 Julius Feldman TERELLDolores Start : 11-Jan-2023 Active new start Start: [...] tablet by kalie every twelve hours metFORMIN (Glucophage) 1,000 mg [...] Status: Ordered take 1 capsule by mo [facility] once daily Tamsulosin HCl - 0.4 MG Oral Capsule TAKE 1 CAPSULE Daily Quantity: 0 Refills: 0 Ordered: 15-Feb-2023 DO [facility] (20 sources) Start: 01-27-2014 Start: 01-27-2014 [facility] as d irected Use as directed. Jan, Active Tiotropium Peacham (Spiriva With Handihaler) 18 mcg capsule, w/inhalation device (5 sources) Start: 07-12-2023 take 1 capsule by inhalation once daily Tiotropium Peacham (Spiriva With Handihaler) 18 mcg capsule, w/inhalation device Active 1 CAP INHALATION Daily July 12, 2023 1:00am puncture 1 cap using device; one dose = 2 inhalations Start: 07-12-2023 take 1 capsule by in halation once daily Tiotropium Peacham (Spiriva With Handihaler) 18 mcg capsule, w/inhalation [...] Ordered Start: 07-04-2022 [facility] tiZANidine HCl 4 MG 1 tablet as needed Orally Twice a day Jun, Active take 2 tablets by mo [facility] at bedtime tiZANidine HCl - 4 [...] take 1 tablet by mouth once daily Olmesartan-Shallotte chlorothiazide (Benicar Hct) 40-12.5 mg Tablet Discontinued [...] Provider: Syed Guerra take 2 tablets by [facility] twice daily before mealtime omeprazole OTC (PriLOSEC [...] [Coronary atherosclerosis of unspecified type of vessel, mcgrath or graft] Onset: 2 Resolved: 2 Chronic [...] limb due to atherosclerosis; Translations: [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, right leg] [...] Test Name Value Interpretation Reference Range Facility [facility] 01-08-2024 Anion gap [Moles/Vol] 13 mmol/L Normal 6-16 [facility] Comment on above: Performed By: #### 2 [id number] #### [facility] [address] [place] [address] Calcium [Mass/Vol] 9.1 mg/dL Normal 8.9-11.1 [facility] Comment on above: Performed By: #### 2 [id number] #### [facility] [address] [place] [address] Chloride [Moles/Vol] 103 mmol/L Normal 101-111 [facility] Comment on above: Performed By: #### 2 [id number] #### [facility] [address] [place] [address] CO2 [Moles/Vol] 25 mmol/L Normal 21-31 [facility] Comment on above: Performed By: #### 2 [id number] #### [facility] [address] [place] [address] Creatinine [Mass/Vol] 1.9 mg/dL High 0.5-1.3 [facility] Comment on above: Performed By: #### 2 [id number] #### [facility] [address] [place] [address] Glucose [Mass/Vol] 138 mg/dL Normal 55-199 [facility] Comment on above: Performed By: #### 2 [id number] #### [facility] [address] [place] [address] Potassium [Moles/Vol] 4.2 mmol/L Normal 3.5-5.3 [facility] Comment on above: Performed By: #### 2 [id number] #### [facility] [address] [place] [address] Sodium [Moles/Vol] 137 mmol/L Normal 135-145 [facility] Comment on above: Performed By: #### 2 [id number] #### [facility] [address] [place] [address] Urea nitrogen [Mass/Vol] 26 mg/dL High 5-21 [facility] Comment on above: Performed By: #### 2 [id number] #### [facility] [address] [place] [address] Urea nitrogen/Creatinine [Mass ratio] 14 No Units Normal 10-20 [facility] Comment on above: Performed By: #### 2 [id number] #### [facility] [address] [place] [address] CBC w/ Auto Diffon 4 Basophils/100 WBC (Bld) 1.2 % Normal 0.0-2.0 [facility] Comment on above: Performed By: #### 2 [id number] #### [facility] [address] [place] [address] Basophils/Leukocytes Auto (Bld) [Pure # fraction] 0.1 E9/L Normal 0.0-0.2 [facility] Comment on above: Performed By: #### 2 [id number] #### [facility] [address] [place] [address] Eosinophils (Bld) [#/Vol] 0.4 E9/L Normal 0.0-0.5 [facility] Comment on above: Performed By: #### 2 [id number] #### [facility] [address] [place] [address] Eosinophils/100 WBC (Bld) 4.3 % Normal 0.0-8.0 [facility] Comment on above: Performed By: #### 2 [id number] #### [facility] [address] [place] [address] Erythrocyte distribution width (RBC) [Ratio] 17.3 % High 10.9-14.2 [facility] Comment on above: Performed By: #### 2 [id number] #### [facility] [address] [place] [address] Hematocrit (Bld) [Volume fraction] 26.8 % Low 37.7-49.0 [facility] Comment on above: Performed By: #### 2 [id number] #### [facility] [address] [place] [address] Hemoglobin (Bld) [Mass/Vol] 8.8 g/dL Low 13.5-17.5 [facility] Comment on above: Performed By: #### 2 [id number] #### [facility] [address] [place] [address] Hypochromia Auto Ql (Bld) PRESENT Invalid Interpretation Code [facility] Comment on above: Performed By: #### 2 [id number] #### [facility] [address] [place] [address] Lymphocytes (Bld) [#/Vol] 2.3 E9/L Normal 1.0-4.0 [facility] Comment on above: Performed By: #### 2 [id number] #### [facility] [address] [place] [address] Lymphocytes/100 WBC (Bld) 22.6 % Normal 14.0-50.0 [facility] Comment on above: Performed By: #### 2 [id number] #### [facility] [address] [place] [address] MCH (RBC) [Entitic mass] 24.5 pg Low 27.0-34.0 [facility] Comment on above: Performed By: #### 2 [id number] #### [facility] [address] [place] [address] MCHC (RBC) [Mass/Vol] 33.0 g/dL Normal 31.4-36.0 [facility] Comment on above: Performed By: #### 2 [id number] #### [facility] [address] [place] [address] MCV (RBC) [Entitic vol] 74.2 fL Low 80.0-100.0 [facility] Comment on above: Performed By: #### 2 [id number] #### [facility] [address] [place] [address] Microcytes Ql (Bld) PRESENT Invalid Interpretation Code [facility] Comment on above: Performed By: #### 2 [id number] #### [facility] [address] [place] [address] Monocytes (Bld) [#/Vol] 0.9 E9/L Normal 0.2-1.0 [facility] Comment on above: Performed By: #### 2 [id number] #### [facility] [address] [place] [address] Neutrophils (Bld) [#/Vol] 6.6 E9/L Normal 2.0-7.5 [facility] Comment on above: Performed By: #### 2 [id number] #### [facility] [address] [place] [address] Neutrophils/100 WBC (Bld) 63.4 % Normal 36.0-75.0 [facility] Comment on above: Performed By: #### 2 [id number] #### [facility] [address] [place] [address] Platelet 377.0 E9/L Normal 150.0-500. 0 [facility] Comment on above: Performed By: #### 2 [id number] #### [facility] [address] [place] [address] Platelet mean volume (Bld) [Entitic vol] 8.7 fL Normal 6.4-10.8 [facility] Comment on above: Performed By: #### 2 [id number] #### [facility] [address] [place] [address] RBC (Bld) [#/Vol] 3.6 E12/L Low 4.3-5.9 [facility] Comment on above: Performed By: #### 2 [id number] #### [facility] [address] [place] [address] RBC size Nom (Bld) SEE MORPHOLOGY Invalid Interpretation Code [facility] Comment on above: Performed By: #### 2 [id number] #### [facility] [address] [place] [address] WBC corrected for nucl RBC Auto (Bld) [#/Vol] 10.4 E9/L Normal 4.0-11.0 [facility] Comment on above: Performed By: #### 2 [id number] #### [facility] [address] [place] [address] Inpatient Clinical Summaryon 01-08-2024 Inpatient Clinical Summary Inpatient Clinical Summary [address] [address] Clinical Summary Person Information: Name: SOLOMON FELDMAN SR Age: 58 Years : 1965 Sex: Male PCP: JENARO LYNCH DO Marital Status: Race: White Ethnicity: Non- or Language: Mongolian Visit Id: Visit Reason: I70.261 Speciality: Acuity: Enc Type: Ambulatory/Same Day Surgery Med Service: Surgery Arrival: 01/08/2024 11:49:03 Discharge: Dispo Type: Address: [address] [place] [id number] Provider Notes: Diagnosis: Problems Active Gross hematuria Orchitis BPH with obstruction/lower urinary tract symptoms Urinary retention Heart murmur Heart disease Heart attack Head ache COPD type A Asthma Smoker Hyperlipidemia Restless leg Arthritis Fibromyalgia Smoking Status: Current Every Day Smoker Functional Status: Sensory Deficits: Uncorrected visual impairment History of Falls: Mobility Assistance Prior to Admission: Independent ADLs: Independent Current Level of Assistance for Self-Care/Mobility: Cognitive Status: Allergies penicillin G benzathine Latex (Rash) (Itching) penicillins (Anaphylactoid reaction) Measurements: Height: 182 cm Weight: 99.5 kg Blood Pressure: Not Valued / Not Valued BMI: 30.04 kg/m2 Procedures Angiogram Transmetatarsal amputation of foot (01/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 amitriptyline (amitriptyline 100 mg oral tablet) By Mouth once a day (at bedtime). amlodipine (Norvasc 5 mg Tab) 1 Tablets By Mouth every day. aspirin (Aspirin 81 mg Tab-EC) atorvastatin (Lipitor 80 mg Tab) 1 Tablets By Mouth every day. clopidogrel (Plavix 75 mg Tab) 1 Tablets By Mouth every day. dulaglutide (Trulicity Pen 1.5 mg/0.5 mL subcutaneous solution) empagliflozin (Jardiance 10 mg oral tablet) By Mouth once a day (in the morning). famotidine (famotidine 40 mg Tab) 1 Tablets By Mouth once a day (at bedtime). fenofibrate (fenofibrate 160 mg oral tablet) 1 Tablets By Mouth every day. glimepiride (Amaryl 2 mg Tab) 1 Tablets By Mouth 2 times a day. hydrochlorothiazide-valsa rtan (hydrochlorothiazide-vals jorge 12.5 mg-160 mg Tab) By Mouth every day. isosorbide mononitrate (Imdur 60 mg ER Tab) 1 Tablets By Mouth once a day (in the morning). Refills: 0. metformin 1,000 Milligram By Mouth 2 times a day. metoprolol 100 Milligram 2 times a day. nitroglycerin (NitroStat 0.4 mg Tab) 1 Tablets Sublingual every 5 minutes as needed for chest pain. omeprazole (Prilosec) By Mouth every day. pregabalin (Lyrica) 200 Milligram By Mouth 3 times a day. ranolazine (Ranexa 1000 mg oral tablet, extended release) 1 Tablets By Mouth 2 times a day. ropinirole (Requip) 1 Milligram By Mouth 3 times a day. sitagliptin (Januvia 100 mg Tab) By Mouth every day. tamsulosin (tamsulosin 0.4 mg Cap) 1 Capsules By Mouth 2 times a day. Refills: 11. tiotropium (Spiriva 18 mcg Cap) 1 Capsules Inhalation every day. Using only ONE capsule, have the patient inhale twice. tizanidine (tizanidine 4 mg oral capsule) By Mouth 3 times a day. Care Team Members: Attending Physician: Padmini Montes MD Consulting Physician: Referring Physician: Padmini Montes MD Follow up: With: Address: When: Padmini Montes [address] [place], [place] [id number] Business (1) Comments: Call for followup appointment Type Location Start [facility] Office Visit [facility] 02/12/2024 1:15 PM 02/12/2024 1:30 PM Confirmed Patient Education Information: CV - Cardiovascular PCI Discharge Instructions (CUSTOM) [facility] Inpatient Patient Summaryon 01-08-2024 Inpatient Patient Summary Inpatient Patient Summary [address] [address] Patient Discharge Instructions PERSON INFORMATION Name: GASTON CHRISTIAN SOLOMON Daniel Date of : 1965 Current Date: 01/08/2024 16:24:43 PHYSICIANS Admitting Physician: Padmini Montes MD Primary Care Physician: JENARO LYNCH DO PCP Comment: Discharge Diagnosis: Condition at Discharge: Improved FELDMAN SOLOMON CHRISTIAN has been given the following list of follow-up instructions, prescriptions, and patient education materials: PATIENT FOLLOW-UP INFORMATION Diet: Discharge Activity: Discharge Restrictions: No driving for 24 hrs, Do not operate machinery or tools, Do not make important decisions for 24 hours, Do not drink alcoholic beverages for 24 hours Wound Care Instructions: Remove dressing as instructed Remove Your Dressing In Days Call Your Doctor For: IF UNABLE TO CONTACT YOUR PHYSICIAN AND YOU FEEL IT IS AN EMERGENCY, GO TO THE NEAREST EMERGENCY ROOM OR CALL 911 Home Treatment: Devices/Equipment: None, Cane, Wheelchair Special Services: Additional Instructions: Primary Care Physician to provide the following pending test results: None Follow up: With: Address: When: Padmini [place] [address] Business (1) Comments: Call for followup appointment In the event that this physician does not participate in your insurance network, please consult with your insurance company to find a nearby participating provider. Type Location Start [facility] Office Visit [facility] 02/12/2024 1:15 PM 02/12/2024 1:30 PM Confirmed Comment: I, GASTON CHRISTIAN, SOLOMON Daniel, have received the attached patient education materials/instructions and have verbalized understanding: Patient Signature ____ Date Clinican/Nurse Signature Date HERE ARE THE MEDICATION CHANGES THAT OCCURRED DURING YOUR HOSPITAL STAY Medications to Continue with No Changes Other Medications albuterol (ProAir HFA) Inhalation every 6 hours. Last Dose: Next Dose: amitriptyline (amitriptyline 100 mg oral tablet) By Mouth once a day (at bedtime). Last Dose: Next Dose: amlodipine (Norvasc 5 mg Tab) 1 Tablets By Mouth every day. Last Dose: Next Dose: aspirin (Aspirin 81 mg Tab-EC) Last Dose: Next Dose: atorvastatin (Lipitor 80 mg Tab) 1 Tablets By Mouth every day. Last Dose: Next Dose: clopidogrel (Plavix 75 mg Tab) 1 Tablets By Mouth every day. Last Dose: Next Dose: dulaglutide (Trulicity Pen 1.5 mg/0.5 mL subcutaneous solution) Last Dose: Next Dose: empagliflozin (Jardiance 10 mg oral tablet) By Mouth once a day (in the morning). Last Dose: Next Dose: famotidine (famotidine 40 mg Tab) 1 Tablets By Mouth once a day (at bedtime). Last Dose: Next Dose: fenofibrate (fenofibrate 160 mg oral tablet) 1 Tablets By Mouth every day. Last Dose: Next Dose: glimepiride (Amaryl 2 mg Tab) 1 Tablets By Mouth 2 times a day. Last Dose: Next Dose: hydrochlorothiazide-valsa rtan (hydrochlorothiazide-vals jorge 12.5 mg-160 mg Tab) By Mouth every day. Last Dose: Next Dose: isosorbide mononitrate (Imdur 60 mg ER Tab) 1 Tablets By Mouth once a day (in the morning). Refills: 0. Last Dose: Next Dose: metformin 1,000 Milligram By Mouth 2 times a day. Last Dose: Next Dose: metoprolol 100 Milligram 2 times a day. Last Dose: Next Dose: nitroglycerin (NitroStat 0.4 mg Tab) 1 Tablets Sublingual every 5 minutes as needed for chest pain. Last Dose: Next Dose: omeprazole (Prilosec) By Mouth every day. Last Dose: Next Dose: pregabalin (Lyrica) 200 Milligram By Mouth 3 times a day. Last Dose: Next Dose: ranolazine (Ranexa 1000 mg oral tablet, extended release) 1 Tablets By Mouth 2 times a day. Last Dose: Next Dose: ropinirole (Requip) 1 Milligram By Mouth 3 times a day. Last Dose: Next Dose: sitagliptin (Januvia 100 mg Tab) By Mouth every day. Last Dose: Next Dose: tamsulosin (tamsulosin 0.4 mg Cap) 1 Capsules By (more content not included)... Normal [facility] Interdisciplinary Note - Ayo singon 01-08-2024 Interdisciplinary Note - Nursing Interdisciplinary Note - Nursing 1200-Right foot dressing removed, noted moderate amount of seropurlent drainage with foul smelling odor, noted 75% slough and 25% granulation. assessed wound and aware. 1500-Spoke with office and received current dressing orders to apply when patient leaves today. 1649-Right foot dressing reapplied. Saline saturated 4x4 applied to open area from right TMA site and covered with kerlex. Cast padding and KATHERYN applied. Reapplied 1/2 cast that patient arrived with and covered with cast padding and KATHERYN. Normal [facility] eGFRon 01-08-2024 eGFR 40 mL/min/1.73 m2 Low >=59 [facility] Comment on above: Order Comment: Order added by Discern Expert. Performed By: #### 1 [id number] #### [facility] [address] [place] [address] [facility] 12-15-2023 L Specimen: [id number] Received: 12/15/23 Status: COLTON hPam Num: [id number] Spec Type: Surgical Subm Dr: Paula Soto,DPM, MS Tissues: A DIGIT AMPUTATION (RT METATARSAL) Procedures: HE/3, Gross/Micro L4, Decalcification Age/ Patient Sex Location Account Attending Physician Solomon Feldman SR 58/M LABELL [id number] Paula Soto DPM, MS SPEC NUM: [id number] RECD: 12/15/23 STATUS: COLTON PHAM NUM: [id number] SHAKIRA: 12/15/23 [facility] DR: Paula Soto DPM, MS ENTERED: 12/15/[address] [facility] [address]: Aurelio,Lab SPEC TYPE: Surgical DEPT: RAMSEY [...] and submitted following decalcification as follows: Specimen: [id number] Received: 12/15/23 Status: COLTON Nath Num: [id number] Spec Type: Surgical Subm Dr: Paula Soto DPM, MS Tissues: A DIGIT AMPUTATION (RT METATARSAL) Procedures: 3, Gross/Micro L4, Decalcification Patient: GastonSolomon María CHRISTIAN [id number] (Continued) Specimen: [id number] Received: 12/15/23 (Continued) Gross Description (Continued) Signed (signature on file) Victor Hugo Sotelo MD 12/20/23 1207 Specimen: [id number] Received: 12/15/23 Status: COLTON Nath Num: [id number] Spec Type: Surgical Subm Dr: Paula Soto DPM, MS Tissues: A DIGIT AMPUTATION (RT METATARSAL) Procedures: 3, Gross/Micro L4, Decalcification Patient: Solomon Feldman SR [id number] (Continued) Specimen: [id number] Received: 12/15/23 (Continued) Gross Description (Continued) A1: Margin #1 A2: Margins #2, #3 A3: Margins #4, #5 TW Microscopic Description Microscopic examinations are performed supporting the above interpretation CPT Codes 83118, 53392 Specimen: [id number] Received: 12/15/23 Status: COLTON Nath Num: [id number] Spec Type: Surgical Subm Dr: Paula Soto,DPM, MS Tissues: A DIGIT AMPUTATION (RT METATARSAL) Procedures: HE/3, Gross/Micro L4, Decalcification Patient: Solomon Feldman [id number] (Continued) Signed (signature on file) Ryan-Jerry Sotelo MD 12/20/23 1207 Normal [facility] Basophils Auto (Bld) [#/Vol] on 12-10-2023 Basophils (Bld) [#/Vol] 0.1 10 3/uL 0.0-0.1 [facility] Basophils/100 WBC Auto (Bld) on 12-10-2023 Basophils/100 WBC (Bld) 0.9 % 0.2-2.0 [facility] Eosinophils/100 WBC Auto (Bl d)on 12-10-2023 Eosinophils/100 WBC (Bld) 2.6 % 0.9-7.0 [facility] Erythrocyte distribution wid th Auto (RBC) [Ratio]on 12-10-2023 Erythrocyte distribution width (RBC) [Ratio] 17.7 % High 11.0-15.0 [facility] Estimated glomerular filtrat ion rate (GFR) non- Americanon 12-10-2023 GFR/1.73 sq M.predicted among non-blacks MDRD (S/P/Bld) [Vol rate/Area] 38 mL/min/{1.73_m2} Low >=60 [facility] Globulin Calc (S) [Mass/Vol] on 12-10-2023 Globulin (S) [Mass/Vol] 3.9 g/dL [facility] Hematocrit Auto (Bld) [Volum e fraction]on 12-10-2023 Hematocrit (Bld) [Volume fraction] 34.2 % Low 42.0-54.0 [facility] Hemoglobin [Mass/volume] in Bloodon 12-10-2023 Hemoglobin (Bld) [Mass/Vol] 10.5 g/dL Low 14.0-18.0 [facility] Laboratory - Chemistry and C hemistry - challengeon 12-10-2023 Albumin [Mass/Vol] 2.8 g/dL Low 3.4-5.0 [facility] ALP [Catalytic activity/Vol] 119 U/L High 46-116 [facility] ALT [Catalytic activity/Vol] 11 U/L Low 16-63 [facility] AST [Catalytic activity/Vol] 10 U/L Low 15-37 [facility] Bilirubin [Mass/Vol] 0.4 mg/dL 0.2-1.0 [facility] Calcium [Mass/Vol] 8.4 mg/dL Low 8.5-10.1 [facility] Chloride [Moles/Vol] 101 mmol/L 98-107 [facility] CO2 [Moles/Vol] 27.0 mmol/L 21.0-32.0 [facility] Creatinine [Mass/Vol] 1.83 mg/dL High 0.70-1.30 [facility] GFR/1.73 sq M.predicted MDRD (S/P/Bld) [Vol rate/Area] 46 mL/min/{1.73_m2} Low >=60 [facility] Glucose [Mass/Vol] 113 mg/dL High 74-106 [facility] Potassium [Moles/Vol] 3.3 mmol/L Low 3.5-5.1 [facility] Protein [Mass/Vol] 6.7 g/dL 6.4-8.2 [facility] Sodium [Moles/Vol] 134 mmol/L Low 136-145 [facility] Urea nitrogen [Mass/Vol] 21.0 mg/dL High 7.0-18.0 [facility] Urea nitrogen/Creatinine [Mass ratio] 11.5 mg/mg [facility] Laboratory - Hematology and Cell countson 12-10-2023 Immature granulocytes/100 WBC (Bld) 0.3 % 0.0-0.5 [facility] Leukocytes [#/volume] correc jorge for nucleated erythrocytes in Blood by Automated counon 12-10-2023 WBC corrected for nucl RBC Auto (Bld) [#/Vol] 9.8 10 3/uL 4.0-11.0 [facility] Lymphocytes Auto (Bld) [#/Vo l]on 12-10-2023 Lymphocytes (Bld) [#/Vol] 1.5 10 3/uL 1.2-3.8 [facility] Lymphocytes/100 WBC Auto (Bl d)on 12-10-2023 Lymphocytes/100 WBC (Bld) 15.8 % Low 20.5-60.0 [facility] MCH Auto (RBC) [Entitic mass ]on 12-10-2023 MCH (RBC) [Entitic mass] 25.1 pg Low 25.9-34.0 [facility] MCHC Auto (RBC) [Mass/Vol]on 12-10-2023 MCHC (RBC) [Mass/Vol] 30.7 g/dL 29.9-35.2 [facility] MCV Auto (RBC) [Entitic vol] on 12-10-2023 MCV (RBC) [Entitic vol] 81.6 fL 80.0-94.0 [facility] Monocytes Auto (Bld) [#/Vol] on 12-10-2023 Monocytes (Bld) [#/Vol] 1.2 10 3/uL High 0.3-0.8 [facility] Monocytes/100 WBC Auto (Bld) on 12-10-2023 Monocytes/100 WBC (Bld) 11.9 % 1.7-12.0 [facility] Neutrophils Auto (Bld) [#/Vo l]on 12-10-2023 Neutrophils (Bld) [#/Vol] 6.7 10 3/uL High 1.4-6.5 [facility] Neutrophils/100 WBC Auto (Bl d)on 12-10-2023 Neutrophils/100 WBC (Bld) 68.5 % 43.0-75.0 [facility] No Panel Informationon 12-09 Eosinophils # (Auto) 0.3 10 3/uL 0.0-0.7 [facility] Immature Granulocyte # (Auto) 0.03 10 3/uL 0.00-0.03 [facility] Platelet mean volume Auto (B ld) [Entitic vol]on 12-10-2023 Platelet mean volume (Bld) [Entitic vol] 10.2 fL 9.5-13.5 [facility] Platelets Auto (Bld) [#/Vol] on 12-10-2023 Platelets (Bld) [#/Vol] 240 10 3/uL 150-450 [facility] RBC Auto (Bld) [#/Vol]on RBC (Bld) [#/Vol] 4.19 10 6/uL Low 4.70-6.10 [facility] Serum or plasma albumin/glob ulin mass ratioon 12-10-2023 Albumin/Globulin [Mass ratio] 0.7 {ratio} [facility] Serum or plasma anion gap de terminationon 12-10-2023 Anion gap [Moles/Vol] 9.3 mmol/L [facility] Basophils Auto (Bld) [#/Vol] on 12-09-2023 Basophils (Bld) [#/Vol] 0.1 10 3/uL 0.0-0.1 [facility] Basophils/100 WBC Auto (Bld) on 12-09-2023 Basophils/100 WBC (Bld) 1.0 % 0.2-2.0 [facility] Eosinophils/100 WBC Auto (Bl d)on 12-09-2023 Eosinophils/100 WBC (Bld) 1.6 % 0.9-7.0 [facility] Erythrocyte distribution wid th Auto (RBC) [Ratio]on 12-09-2023 Erythrocyte distribution width (RBC) [Ratio] 17.7 % High 11.0-15.0 [facility] Estimated glomerular filtrat ion rate (GFR) non- Americanon 12-09-2023 GFR/1.73 sq M.predicted among non-blacks MDRD (S/P/Bld) [Vol rate/Area] 31 mL/min/{1.73_m2} Low >=60 [facility] Fibrin D-dimer [Presence] in Platelet poor plasma by Latex agglutinationon 12-09-2023 Fibrin D-dimer LA Ql (PPP) 3.76 mg/L FEU High <=0.59 [facility] Comment on above: RESULTS CALLED TO DR Ortegaases in D-Dimer concentration observed withthromboembolic events can [...] on 12-09-2023 Globulin (S) [Mass/Vol] 4.6 g/dL [facility] Hematocrit Auto (Bld) [Volum e fraction]on 12-09-2023 Hematocrit (Bld) [Volume fraction] 39.2 % Low 42.0-54.0 [facility] Hemoglobin [Mass/volume] in Bloodon 12-09-2023 Hemoglobin (Bld) [Mass/Vol] 12.2 g/dL Low 14.0-18.0 [facility] Laboratory - Chemistry and C hemistry - challengeon 12-09-2023 Lactate [Moles/Vol] 2.9 mmol/L High 0.4-2.0 [facility] Comment on above: RESULTS CALLED TO RM SHARPE RN Bilirubin Ql (U) Negative NEGATIVE [facility] Glucose (U) [Mass/Vol] 500 mg/dL [facility] Ketones Ql (U) Negative NEGATIVE [facility] pH (U) 6.5 [pH] 5.0-9.0 [facility] Specific gravity (U) [Rel density] 1.020 1.005-1.02 5 [facility] Urobilinogen Qn (U) 0.2 {Brendan'U}/dL 0.2-1.0 [facility] Albumin [Mass/Vol] 3.5 g/dL 3.4-5.0 [facility] ALP [Catalytic activity/Vol] 141 U/L High 46-116 [facility] ALT [Catalytic activity/Vol] 13 U/L Low 16-63 [facility] AST [Catalytic activity/Vol] 8 U/L Low 15-37 [facility] Bilirubin [Mass/Vol] 0.7 mg/dL 0.2-1.0 [facility] Calcium [Mass/Vol] 9.6 mg/dL 8.5-10.1 [facility] Chloride [Moles/Vol] 99 mmol/L 98-107 [facility] CO2 [Moles/Vol] 21.7 mmol/L 21.0-32.0 [facility] Creatinine [Mass/Vol] 2.17 mg/dL High 0.70-1.30 [facility] GFR/1.73 sq M.predicted MDRD (S/P/Bld) [Vol rate/Area] 38 mL/min/{1.73_m2} Low >=60 [facility] Glucose [Mass/Vol] 191 mg/dL High 74-106 [facility] Magnesium [Mass/Vol] 1.6 mg/dL Low 1.8-2.4 [facility] Potassium [Moles/Vol] 3.8 mmol/L 3.5-5.1 [facility] Protein [Mass/Vol] 8.1 g/dL 6.4-8.2 [facility] Sodium [Moles/Vol] 135 mmol/L Low 136-145 [facility] Urea nitrogen [Mass/Vol] 20.0 mg/dL High 7.0-18.0 [facility] Urea nitrogen/Creatinine [Mass ratio] 9.2 mg/mg [facility] Laboratory - Hematology and Cell countson 12-09-2023 Immature granulocytes/100 WBC (Bld) 0.3 % 0.0-0.5 [facility] Laboratory - Microbiology an d Antimicrobial susceptibilityon 12-09-2023 SARS-CoV-2 (COVID-19) RNA NELLY+probe Ql (Unsp spec) Negative NEGATIVE [facility] Comment on above: This test has [...] inform ationon 12-09-2023 Appearance (U) CLEAR CLEAR [facility] Color (U) YELLOW YELLOW [facility] Laboratory - Urinalysison Leukocyte esterase Test strip Ql (U) Negative NEGATIVE [facility] Nitrite Ql (U) Negative NEGATIVE [facility] Protein Ql (U) Negative NEG/TRACE [facility] Leukocytes [#/volume] correc jorge for nucleated erythrocytes in Blood by Automated counon 12-09-2023 WBC corrected for nucl RBC Auto (Bld) [#/Vol] 9.3 10 3/uL 4.0-11.0 [facility] Lymphocytes Auto (Bld) [#/Vo l]on 12-09-2023 Lymphocytes (Bld) [#/Vol] 1.5 10 3/uL 1.2-3.8 [facility] Lymphocytes/100 WBC Auto (Bl d)on 12-09-2023 Lymphocytes/100 WBC (Bld) 15.7 % Low 20.5-60.0 [facility] MCH Auto (RBC) [Entitic mass ]on 12-09-2023 MCH (RBC) [Entitic mass] 25.6 pg Low 25.9-34.0 [facility] MCHC Auto (RBC) [Mass/Vol]on 12-09-2023 MCHC (RBC) [Mass/Vol] 31.1 g/dL 29.9-35.2 [facility] MCV Auto (RBC) [Entitic vol] on 12-09-2023 MCV (RBC) [Entitic vol] 82.4 fL 80.0-94.0 [facility] Monocytes Auto (Bld) [#/Vol] on 12-09-2023 Monocytes (Bld) [#/Vol] 0.9 10 3/uL High 0.3-0.8 [facility] Monocytes/100 WBC Auto (Bld) on 12-09-2023 Monocytes/100 WBC (Bld) 9.1 % 1.7-12.0 [facility] Neutrophils Auto (Bld) [#/Vo l]on 12-09-2023 Neutrophils (Bld) [#/Vol] 6.7 10 3/uL High 1.4-6.5 [facility] Neutrophils/100 WBC Auto (Bl d)on 12-09-2023 Neutrophils/100 WBC (Bld) 72.3 % 43.0-75.0 [facility] No Panel Informationon 12-08 Urine Microscopic Review NO [facility] Urine Occult Blood Negative NEGATIVE [facility] Eosinophils # (Auto) 0.2 10 3/uL 0.0-0.7 [facility] Immature Granulocyte # (Auto) 0.03 10 3/uL 0.00-0.03 [facility] Troponin I High Sensitivity 8.7 pg/mL 4.0-76.1 [facility] Comment on above: CUT-OFF POINTS [...] volume (Bld) [Entitic vol] 10.7 fL 9.5-13.5 [facility] Platelets Auto (Bld) [#/Vol] on 12-09-2023 Platelets (Bld) [#/Vol] 294 10 3/uL 150-450 [facility] RBC Auto (Bld) [#/Vol]on RBC (Bld) [#/Vol] 4.76 10 6/uL 4.70-6.10 [facility] Serum or plasma albumin/glob ulin mass ratioon 12-09-2023 Albumin/Globulin [Mass ratio] 0.8 {ratio} [facility] Serum or plasma anion gap de terminationon 12-09-2023 Anion gap [Moles/Vol] 18.1 mmol/L [facility] Outside Operativeon 11-28-19 24 Outside Operative [id number]#1.00TIFF Normal [facility] Physician Orderon 11-28-2023 Physician Order [id number]#1.00TIFF Normal [facility] Basophils Auto (Bld) [#/Vol] on 11-26-2023 Basophils (Bld) [#/Vol] 0.1 10 3/uL 0.0-0.1 [facility] Basophils/100 WBC Auto (Bld) on 11-26-2023 Basophils/100 WBC (Bld) 1.1 % 0.2-2.0 [facility] Eosinophils/100 WBC Auto (Bl d)on 11-26-2023 Eosinophils/100 WBC (Bld) 3.5 % 0.9-7.0 [facility] Erythrocyte distribution wid th Auto (RBC) [Ratio]on 11-26-2023 Erythrocyte distribution width (RBC) [Ratio] 20.0 % High 11.0-15.0 [facility] Estimated glomerular filtrat ion rate (GFR) non- Americanon 11-26-2023 GFR/1.73 sq M.predicted among non-blacks MDRD (S/P/Bld) [Vol rate/Area] 41 mL/min/{1.73_m2} Low >=60 [facility] Globulin Calc (S) [Mass/Vol] on 11-26-2023 Globulin (S) [Mass/Vol] 4.2 g/dL [facility] Hematocrit Auto (Bld) [Volum e fraction]on 11-26-2023 Hematocrit (Bld) [Volume fraction] 33.1 % Low 42.0-54.0 [facility] Hemoglobin [Mass/volume] in Bloodon 11-26-2023 Hemoglobin (Bld) [Mass/Vol] 9.8 g/dL Low 14.0-18.0 [facility] Laboratory - Chemistry and C hemistry - challengeon 11-26-2023 Albumin [Mass/Vol] 3.2 g/dL Low 3.4-5.0 [facility] ALP [Catalytic activity/Vol] 143 U/L High 46-116 [facility] ALT [Catalytic activity/Vol] 16 U/L 16-63 [facility] AST [Catalytic activity/Vol] 14 U/L Low 15-37 [facility] Bilirubin [Mass/Vol] 0.5 mg/dL 0.2-1.0 [facility] Calcium [Mass/Vol] 9.1 mg/dL 8.5-10.1 [facility] Chloride [Moles/Vol] 101 mmol/L 98-107 [facility] CO2 [Moles/Vol] 24.2 mmol/L 21.0-32.0 [facility] Creatinine [Mass/Vol] 1.72 mg/dL High 0.70-1.30 [facility] GFR/1.73 sq M.predicted MDRD (S/P/Bld) [Vol rate/Area] 50 mL/min/{1.73_m2} Low >=60 [facility] Glucose [Mass/Vol] 132 mg/dL High 74-106 [facility] Lactate [Moles/Vol] 3.6 mmol/L High 0.4-2.0 [facility] Comment on above: RESULTS CALLED TO DR CROOK/YASMIN Potassium [Moles/Vol] 3.7 mmol/L 3.5-5.1 [facility] Protein [Mass/Vol] 7.4 g/dL 6.4-8.2 [facility] Sodium [Moles/Vol] 138 mmol/L 136-145 [facility] Urea nitrogen [Mass/Vol] 26.0 mg/dL High 7.0-18.0 [facility] Urea nitrogen/Creatinine [Mass ratio] 15.1 mg/mg [facility] Laboratory - Hematology and Cell countson 11-26-2023 ESR (Bld) [Velocity] 96 mm/h High <=20 [facility] Immature granulocytes/100 WBC (Bld) 0.4 % 0.0-0.5 [facility] Leukocytes [#/volume] correc jorge for nucleated erythrocytes in Blood by Automated counon 11-26-2023 WBC corrected for nucl RBC Auto (Bld) [#/Vol] 9.1 10 3/uL 4.0-11.0 [facility] Lymphocytes Auto (Bld) [#/Vo l]on 11-26-2023 Lymphocytes (Bld) [#/Vol] 2.1 10 3/uL 1.2-3.8 [facility] Lymphocytes/100 WBC Auto (Bl d)on 11-26-2023 Lymphocytes/100 WBC (Bld) 23.4 % 20.5-60.0 [facility] MCH Auto (RBC) [Entitic mass ]on 11-26-2023 MCH (RBC) [Entitic mass] 24.8 pg Low 25.9-34.0 [facility] MCHC Auto (RBC) [Mass/Vol]on 11-26-2023 MCHC (RBC) [Mass/Vol] 29.6 g/dL Low 29.9-35.2 [facility] MCV Auto (RBC) [Entitic vol] on 11-26-2023 MCV (RBC) [Entitic vol] 83.8 fL 80.0-94.0 [facility] Monocytes Auto (Bld) [#/Vol] on 11-26-2023 Monocytes (Bld) [#/Vol] 0.8 10 3/uL 0.3-0.8 [facility] Monocytes/100 WBC Auto (Bld) on 11-26-2023 Monocytes/100 WBC (Bld) 8.5 % 1.7-12.0 [facility] Neutrophils Auto (Bld) [#/Vo l]on 11-26-2023 Neutrophils (Bld) [#/Vol] 5.7 10 3/uL 1.4-6.5 [facility] Neutrophils/100 WBC Auto (Bl d)on 11-26-2023 Neutrophils/100 WBC (Bld) 63.1 % 43.0-75.0 [facility] No Panel InformationOrdered By: HERNAN CROOK on 11-26-2023 Blood Culture 2 [facility] Blood Culture 1 [facility] No Panel Informationon 11-25 C-Reactive Protein, Quantitative <0.50 mg/dL <=0.50 [facility] Eosinophils # (Auto) 0.3 10 3/uL 0.0-0.7 [facility] Immature Granulocyte # (Auto) 0.04 10 3/uL High 0.00-0.03 [facility] Platelet mean volume Auto (B ld) [Entitic vol]on 11-26-2023 Platelet mean volume (Bld) [Entitic vol] 10.4 fL 9.5-13.5 [facility] Platelets Auto (Bld) [#/Vol] on 11-26-2023 Platelets (Bld) [#/Vol] 371 10 3/uL 150-450 [facility] RBC Auto (Bld) [#/Vol]on RBC (Bld) [#/Vol] 3.95 10 6/uL Low 4.70-6.10 [facility] Serum or plasma albumin/glob ulin mass ratioon 11-26-2023 Albumin/Globulin [Mass ratio] 0.8 {ratio} [facility] Serum or plasma anion gap de terminationon 11-26-2023 Anion gap [Moles/Vol] 16.5 mmol/L [facility] Progress Note-Physicianon Progress Note-Physician [id number]#1.00TIFF Normal [facility] Basophils Auto (Bld) [#/Vol] on 11-15-2023 Basophils (Bld) [#/Vol] 0.1 10 3/uL 0.0-0.1 [facility] Basophils/100 WBC Auto (Bld) on 11-15-2023 Basophils/100 WBC (Bld) 0.8 % 0.2-2.0 [facility] Eosinophils/100 WBC Auto (Bl d)on 11-15-2023 Eosinophils/100 WBC (Bld) 5.9 % 0.9-7.0 [facility] Erythrocyte distribution wid th Auto (RBC) [Ratio]on 11-15-2023 Erythrocyte distribution width (RBC) [Ratio] 20.6 % High 11.0-15.0 [facility] Estimated glomerular filtrat ion rate (GFR) non- Americanon 11-15-2023 GFR/1.73 sq M.predicted among non-blacks MDRD (S/P/Bld) [Vol rate/Area] 44 mL/min/{1.73_m2} Low >=60 [facility] Globulin Calc (S) [Mass/Vol] on 11-15-2023 Globulin (S) [Mass/Vol] 4.7 g/dL [facility] Hematocrit Auto (Bld) [Volum e fraction]on 11-15-2023 Hematocrit (Bld) [Volume fraction] 27.6 % Low 42.0-54.0 [facility] Hemoglobin [Mass/volume] in Bloodon 11-15-2023 Hemoglobin (Bld) [Mass/Vol] 8.5 g/dL Low 14.0-18.0 [facility] Laboratory - Chemistry and C hemistry - challengeon 11-15-2023 Albumin [Mass/Vol] 2.4 g/dL Low 3.4-5.0 [facility] ALP [Catalytic activity/Vol] 194 U/L High 46-116 [facility] ALT [Catalytic activity/Vol] 22 U/L 16-63 [facility] AST [Catalytic activity/Vol] 25 U/L 15-37 [facility] Bilirubin [Mass/Vol] 0.9 mg/dL 0.2-1.0 [facility] Calcium [Mass/Vol] 8.9 mg/dL 8.5-10.1 [facility] Chloride [Moles/Vol] 97 mmol/L Low 98-107 [facility] CO2 [Moles/Vol] 26.6 mmol/L 21.0-32.0 [facility] Creatinine [Mass/Vol] 1.63 mg/dL High 0.70-1.30 [facility] GFR/1.73 sq M.predicted MDRD (S/P/Bld) [Vol rate/Area] 53 mL/min/{1.73_m2} Low >=60 [facility] Glucose [Mass/Vol] 226 mg/dL High 74-106 [facility] Lactate [Moles/Vol] 1.4 mmol/L 0.4-2.0 [facility] Potassium [Moles/Vol] 4.1 mmol/L 3.5-5.1 [facility] Protein [Mass/Vol] 7.1 g/dL 6.4-8.2 [facility] Sodium [Moles/Vol] 135 mmol/L Low 136-145 [facility] Urea nitrogen [Mass/Vol] 24.0 mg/dL High 7.0-18.0 [facility] Urea nitrogen/Creatinine [Mass ratio] 14.7 mg/mg [facility] Laboratory - Hematology and Cell countson 11-15-2023 Immature granulocytes/100 WBC (Bld) 0.6 % High 0.0-0.5 [facility] Leukocytes [#/volume] correc jorge for nucleated erythrocytes in Blood by Automated counon 11-15-2023 WBC corrected for nucl RBC Auto (Bld) [#/Vol] 9.5 10 3/uL 4.0-11.0 [facility] Lymphocytes Auto (Bld) [#/Vo l]on 11-15-2023 Lymphocytes (Bld) [#/Vol] 1.3 10 3/uL 1.2-3.8 [facility] Lymphocytes/100 WBC Auto (Bl d)on 11-15-2023 Lymphocytes/100 WBC (Bld) 14.1 % Low 20.5-60.0 [facility] MCH Auto (RBC) [Entitic mass ]on 11-15-2023 MCH (RBC) [Entitic mass] 24.9 pg Low 25.9-34.0 [facility] MCHC Auto (RBC) [Mass/Vol]on 11-15-2023 MCHC (RBC) [Mass/Vol] 30.8 g/dL 29.9-35.2 [facility] MCV Auto (RBC) [Entitic vol] on 11-15-2023 MCV (RBC) [Entitic vol] 80.9 fL 80.0-94.0 [facility] Monocytes Auto (Bld) [#/Vol] on 11-15-2023 Monocytes (Bld) [#/Vol] 1.1 10 3/uL High 0.3-0.8 [facility] Monocytes/100 WBC Auto (Bld) on 11-15-2023 Monocytes/100 WBC (Bld) 11.9 % 1.7-12.0 [facility] Neutrophils Auto (Bld) [#/Vo l]on 11-15-2023 Neutrophils (Bld) [#/Vol] 6.4 10 3/uL 1.4-6.5 [facility] Neutrophils/100 WBC Auto (Bl d)on 11-15-2023 Neutrophils/100 WBC (Bld) 66.7 % 43.0-75.0 [facility] No Panel InformationOrdered By: Fely Marker on 11-15-2023 Blood Culture 2 [facility] Blood Culture 1 [facility] No Panel Informationon 11-14 Eosinophils # (Auto) 0.6 10 3/uL 0.0-0.7 [facility] Immature Granulocyte # (Auto) 0.06 10 3/uL High 0.00-0.03 [facility] Platelet mean volume Auto (B ld) [Entitic vol]on 11-15-2023 Platelet mean volume (Bld) [Entitic vol] 10.8 fL 9.5-13.5 [facility] Platelets Auto (Bld) [#/Vol] on 11-15-2023 Platelets (Bld) [#/Vol] 338 10 3/uL 150-450 [facility] RBC Auto (Bld) [#/Vol]on RBC (Bld) [#/Vol] 3.41 10 6/uL Low 4.70-6.10 [facility] Serum or plasma albumin/glob ulin mass ratioon 11-15-2023 Albumin/Globulin [Mass ratio] 0.5 {ratio} [facility] Serum or plasma anion gap de terminationon 11-15-2023 Anion gap [Moles/Vol] 15.5 mmol/L [facility] BASIC METABOLIC PANLon 11-13 Anion gap [Moles/Vol] 10 mmol/L Normal 5-15 [facility] Comment on above: Performed By: #### Snehal CANALES, KENDALL, , 2776-06 ####[facility] ([id number] [address] Calcium [Mass/Vol] 8.8 mg/dL Normal 8.5-10.5 [facility] Comment on above: Performed By: #### Snehal CANALES, KENDALL, , 2776-06 ####[facility] ([id number])[address], [address] [address] Chloride [Moles/Vol] 99 mmol/L Normal 98-109 [facility] Comment on above: Performed By: #### Snehal CANALES, KENDALL, , 2776-06 ####[facility] ([id number])[address], [address] [address] CO2 [Moles/Vol] 26 mmol/L Normal 22-32 [facility] Comment on above: Performed By: #### Snehal CANALES, KENDALL, , 2776-06 ####[facility] ([id number])[address], [address], [place] [address] Creatinine [Mass/Vol] 1.61 mg/dL High 0.60-1.30 [facility] Comment on above: Result Comment: METH OD TRACEABLE TO IDMS STANDARD Performed By: #### Snehal CANALES, BMP, , 2776-06 ####[facility] ([id number])[address], [address] [address] GFR/1.73 sq M.predicted among non-blacks MDRD (S/P/Bld) [Vol rate/Area] 49 mL/min/{1.73_m2} Low >59 [facility] Comment on above: Result Comment: Reported eGFR is based on the CKD-EPI 2020 equation that does not use a race coefficient. Performed By: #### C KENDALL CANALES, , 2776-06 ####[facility] ([id number])[address], [address] [place] [address] Glucose [Mass/Vol] 184 mg/dL High 65-99 [facility] Comment on above: Performed By: #### C KENDALL CANALES, , 2776-06 ####[facility] ([id number])[address], [address] [place] [address] Potassium [Moles/Vol] 4.0 mmol/L Normal 3.5-5.0 [facility] Comment on above: Performed By: #### KENDALL AHUJA, , 2776-06 ####[facility] ([id number])[address], [address] [place] [address] Sodium [Moles/Vol] 135 mmol/L Normal 134-146 [facility] Comment on above: Performed By: #### Snehal CANALES [facility], , 2776-06 ####[facility] ([id number])[address], [address] [address] Urea nitrogen [Mass/Vol] 23 mg/dL Normal 5-23 [facility] Comment on above: Performed By: #### KENDALL AHUJA, , 2776-06 ####[facility] ([id number])[address], [address] [address] COMPLETE BLOOD COUNTon 11-13 Erythrocyte distribution width (RBC) [Ratio] 22.8 % High 11.5-15.0 [facility] Comment on above: Performed By: #### KENDALL AHUJA, , 2776-06 ####[facility] ([id number])[address], [address] [place] [address] Hematocrit (Bld) [Volume fraction] 25.1 % Low 39-49 [facility] Comment on above: Performed By: #### C ALLY, BMP, , 2776-06 ####[facility] ([id number])[address], [address] [address] Hemoglobin (Bld) [Mass/Vol] 8.1 g/dL Low 13.0-17.0 [facility] Comment on above: Performed By: #### C ALLY, BMP, , 2776-06 ####[facility] ([id number])[address], [address] [address] MCH (RBC) [Entitic mass] 25.1 pg Low 27-34 [facility] Comment on above: Performed By: #### Snehal CANALES, [facility], , 2776-06 ####[facility] ([id number])[address], [address] [address] MCHC (RBC) [Mass/Vol] 32.4 g/dL Normal 32-36 [facility] Comment on above: Performed By: #### KENDALL AHUJA, , 2776-06 ####[facility] ([id number])[address], [address] [place] [address] MCV (RBC) [Entitic vol] 77 fL Low 80-100 [facility] Comment on above: Performed By: #### Snehal CANALES, BMP, , 2776-06 ####[facility] ([id number])[address], [address] [place] [address] Platelet mean volume (Bld) [Entitic vol] 8.8 fL Normal 7-12 [facility] Comment on above: Performed By: #### Snehal BC, BMP, , 2776-06 ####[facility] ([id number])[address], [address] [place] [place] [address] Platelets (Bld) [#/Vol] 232 10*3/uL Normal 150-450 [facility] Comment on above: Performed By: #### C ALLY, [facility], , 2776-06 ####[facility] ([id number])[address], [address] [place] [place] [address] RBC COUNT 3.25 X10E12/L Low 4.10-5.70 [facility] Comment on above: Performed By: #### C ALLY, [facility], , 2776-06 ####[facility] ([id number])[address], [address] [address] WBC (Bld) [#/Vol] 8.4 10*3/uL Normal 4.0-11.0 [facility] Comment on above: Performed By: #### C ALLY, [facility], , 2776-06 ####[facility] ([id number])[address], [address] [address] Glucose Glucometer (BldC) [M ass/Vol]on 11-14-2023 Glucose [Mass/Vol] 173 mg/dL High 65-99 [facility] Glucose [Mass/Vol] 279 mg/dL High 65-99 [facility] Glucose [Mass/Vol] 249 mg/dL High 65-99 [facility] MAGNESIUMon 11-14-2023 Magnesium [Mass/Vol] 2.1 mg/dL Normal 1.8-2.6 [facility] Comment on above: Performed By: #### 1 9123-9 ####[facility] ([id number])[address], [address] [place] [address] Magnesium [Mass/Vol] mg/dL Critically low 1.8-2.6 [facility] Comment on above: Performed By: #### 1 9123-9 ####[facility] ([id number])[address], [address], [place] [address] Magnesium [Mass/Vol] 1.7 mg/dL Low 1.8-2.6 [facility] Comment on above: Performed By: #### C KENDALL CANALES, , 2776-06 ####[facility] ([id number])[address], [address], [place] [address] PHOSPHORUSon 11-14-2023 Phosphate [Mass/Vol] 3.6 mg/dL Normal 2.4-4.9 [facility] Comment on above: Performed By: #### C KENDALL CANALES, , 2776-06 ####[facility] ([id number])[address], [address], [place] [address] BASIC METABOLIC PANLon 11-12 Anion gap [Moles/Vol] 10 mmol/L Normal 5-15 [facility] Comment on above: Performed By: #### KENDALL AHUJA, , 2776-06 ####[facility] ([id number])[address], [place] [address] Calcium [Mass/Vol] 8.9 mg/dL Normal 8.5-10.5 [facility] Comment on above: Performed By: #### KENDALL AHUJA, , 2776-06 ####[facility] ([id number])[address], [address], [place] [address] Chloride [Moles/Vol] 98 mmol/L Normal 98-109 [facility] Comment on above: Performed By: #### KENDALL AHUJA, , 2776-06 ####[facility] ([id number])[address], [address], [place] [address] CO2 [Moles/Vol] 27 mmol/L Normal 22-32 [facility] Comment on above: Performed By: #### C ALLY, KENDALL, , 2776-06 ####[facility] ([id number])[address], [address] [place] [place] [address] Creatinine [Mass/Vol] 1.47 mg/dL High 0.60-1.30 [facility] Comment on above: Result Comment: METH OD TRACEABLE TO IDMS STANDARD Performed By: #### C KENDALL CANALES, , 2776-06 ####[facility] ([id number])[address] [address], [place] [address] GFR/1.73 sq M.predicted among non-blacks MDRD (S/P/Bld) [Vol rate/Area] 55 mL/min/{1.73_m2} Low >59 [facility] Comment on above: Result Comment: Reported eGFR is based on the CKD-EPI 2020 equation that does not use a race coefficient. Performed By: #### C KENDALL CANALES, , 2776-06 ####[facility] ([id number])[address] [address] [address] Glucose [Mass/Vol] 164 mg/dL High 65-99 [facility] Comment on above: Performed By: #### KENDALL AHUJA, , 2776-06 ####[facility] ([id number])[address] [address] [place] [place] [address] Potassium [Moles/Vol] 3.8 mmol/L Normal 3.5-5.0 [facility] Comment on above: Performed By: #### C KENDALL CANALES, , 2776-06 ####[facility] ([id number])[address] [address] [place] [place] [address] Sodium [Moles/Vol] 135 mmol/L Normal 134-146 [facility] Comment on above: Performed By: #### C KENDALL CANALES, , 2776-06 ####[facility] ([id number])[address], [address] [address] Urea nitrogen [Mass/Vol] 26 mg/dL High 5-23 [facility] Comment on above: Performed By: #### C , [facility], , 2776-06 ####[facility] ([id number])[address], [address] [address] COMPLETE BLOOD COUNTon 11-12 Erythrocyte distribution width (RBC) [Ratio] 23.2 % High 11.5-15.0 [facility] Comment on above: Performed By: #### Snehal CANALES, [facility], , 2776-06 ####[facility] ([id number])[address], [address], [place] [address] Hematocrit (Bld) [Volume fraction] 24.7 % Low 39-49 [facility] Comment on above: Performed By: #### Snehal CANALES, [facility], , 2776-06 ####[facility] ([id number])[address] [address] [address] Hemoglobin (Bld) [Mass/Vol] 8.2 g/dL Low 13.0-17.0 [facility] Comment on above: Performed By: #### Snehal CANALES, [facility], , 2776-06 ####[facility] ([id number])[address] [address] [address] MCH (RBC) [Entitic mass] 25.7 pg Low 27-34 [facility] Comment on above: Performed By: #### Snehal BC, [facility], , 2776-06 ####[facility] ([id number])[address], [address] [place] [place] [address] MCHC (RBC) [Mass/Vol] 33.4 g/dL Normal 32-36 [facility] Comment on above: Performed By: #### C ALLY, [facility], , 2776-06 ####[facility] ([id number])[address], [address], [place] [address] MCV (RBC) [Entitic vol] 77 fL Low 80-100 [facility] Comment on above: Performed By: #### Snehal CANALES, KENDALL, , 2776-06 ####[facility] ([id number])[address] [address] Platelet mean volume (Bld) [Entitic vol] 8.8 fL Normal 7-12 [facility] Comment on above: Performed By: #### Snehal CANALES, KENDALL, , 2776-06 ####[facility] ([id number])[address], [address] [address] Platelets (Bld) [#/Vol] 207 10*3/uL Normal 150-450 [facility] Comment on above: Performed By: #### KENDALL AHUJA, , 2776-06 ####[facility] ([id number])[address] [address], [place] [address] RBC COUNT 3.21 X10E12/L Low 4.10-5.70 [facility] Comment on above: Performed By: #### KENDALL AHUJA, , 2776-06 ####[facility] ([id number])[address] [address] [place] [place] [address] WBC (Bld) [#/Vol] 8.1 10*3/uL Normal 4.0-11.0 [facility] Comment on above: Performed By: #### KENDALL AHUJA, , 2776-06 ####[facility] ([id number])[address], [address], [place] [address] Glucose Glucometer (BldC) [M ass/Vol]on 11-13-2023 Glucose [Mass/Vol] 230 mg/dL High 65-99 [facility] Glucose [Mass/Vol] 225 mg/dL High 65-99 [facility] Glucose [Mass/Vol] 331 mg/dL High 65-99 [facility] Glucose [Mass/Vol] 190 mg/dL High 65-99 [facility] MAGNESIUMon 11-13-2023 Magnesium [Mass/Vol] 2.1 mg/dL Normal 1.8-2.6 [facility] Comment on above: Performed By: #### KENDALL AHUJA, , 2777-1 ####[facility] ([id number])[address] [address] PHOSPHORUSon 11-13-2023 Phosphate [Mass/Vol] 3.8 mg/dL Normal 2.4-4.9 [facility] Comment on above: Performed By: #### KENDALL AHUJA, , 2777-1 ####[facility] ([id number])[address] [address] BASIC METABOLIC PANLon 11-11 Anion gap [Moles/Vol] 11 mmol/L Normal 5-15 [facility] Comment on above: Performed By: #### Snehal CANALES BMP #### [facility] ([id number]) [address], [address] [place] [address] Calcium [Mass/Vol] 9.0 mg/dL Normal 8.5-10.5 [facility] Comment on above: Performed By: #### Snehal CANALES, BMP #### [facility] ([id number]) [address], [address] [place] [address] Chloride [Moles/Vol] 98 mmol/L Normal 98-109 [facility] Comment on above: Performed By: #### Snehal CANALES, BMP #### [facility] ([id number]) [address], [address] [place] [address] CO2 [Moles/Vol] 25 mmol/L Normal 22-32 [facility] Comment on above: Performed By: #### Snehal CANALES, BMP #### [facility] ([id number]) [address], [facility] [address] [place] [address] Creatinine [Mass/Vol] 1.40 mg/dL High 0.60-1.30 [facility] Comment on above: Result Comment: METH OD TRACEABLE TO IDMS STANDARD Performed By: #### C ALLY, BMP #### [facility] ([id number]) [address], [facility] [address] [place] [address] GFR/1.73 sq M.predicted among non-blacks MDRD (S/P/Bld) [Vol rate/Area] 58 mL/min/{1.73_m2} Low >59 [facility] Comment on above: Result Comment: Reported eGFR is based on the CKD-EPI 2020 equation that does not use a race coefficient. Performed By: #### Snehal CANALES, BMP #### [facility] ([id number]) [address], [address] [place] [address] Glucose [Mass/Vol] 194 mg/dL High 65-99 [facility] Comment on above: Performed By: #### Snehal CANALES, BMP #### [facility] ([id number]) [address], [address] [place] [address] Potassium [Moles/Vol] 4.0 mmol/L Normal 3.5-5.0 [facility] Comment on above: Performed By: #### Snehal CANALES, BMP #### [facility] ([id number]) [address], [address] [place] [address] Sodium [Moles/Vol] 134 mmol/L Normal 134-146 [facility] Comment on above: Performed By: #### Snehal CANALES, BMP #### [facility] ([id number]) [address], [address] [place] [address] Urea nitrogen [Mass/Vol] 23 mg/dL Normal 5-23 [facility] Comment on above: Performed By: #### C ALLY, BMP #### [facility] ([id number]) [address], [address] [place] [address] COMPLETE BLOOD COUNTon 11-11 Erythrocyte distribution width (RBC) [Ratio] 24.1 % High 11.5-15.0 [facility] Comment on above: Performed By: #### C ALLY, BMP #### [facility] ([id number]) [address], [address] [place] [address] Hematocrit (Bld) [Volume fraction] 25.8 % Low 39-49 [facility] Comment on above: Performed By: #### Snehal CANALES, BMP #### [facility] ([id number]) [address], [address] [place] [address] Hemoglobin (Bld) [Mass/Vol] 8.6 g/dL Low 13.0-17.0 [facility] Comment on above: Performed By: #### C ALLY, BMP #### [facility] ([id number]) [address], [address] [place] [address] MCH (RBC) [Entitic mass] 25.7 pg Low 27-34 [facility] Comment on above: Performed By: #### Snehal CANALES, BMP #### [facility] ([id number]) [address], [address] [place] [address] MCHC (RBC) [Mass/Vol] 33.5 g/dL Normal 32-36 [facility] Comment on above: Performed By: #### C ALLY, BMP #### [facility] ([id number]) [address], [address] [place] [address] MCV (RBC) [Entitic vol] 77 fL Low 80-100 [facility] Comment on above: Performed By: #### Snehal CANALES, BMP #### [facility] ([id number]) [address], [address] [place] [address] Platelet mean volume (Bld) [Entitic vol] 9.2 fL Normal 7-12 [facility] Comment on above: Performed By: #### Snehal CANALES, BMP #### [facility] ([id number]) [address], [address] [place] [address] Platelets (Bld) [#/Vol] 185 10*3/uL Normal 150-450 [facility] Comment on above: Performed By: #### Snehal CANALES, BMP #### [facility] ([id number]) [address], [address] [place] [address] RBC COUNT 3.37 X10E12/L Low 4.10-5.70 [facility] Comment on above: Performed By: #### Snehal CANALES, BMP #### [facility] ([id number]) [address], [address] [place] [address] WBC (Bld) [#/Vol] 10.0 10*3/uL Normal 4.0-11.0 [facility] Comment on above: Performed By: #### Snehal CANALES, BMP #### [facility] ([id number]) [address], [address] [place] [address] Glucose Glucometer (dC) [M ass/Vol]on 11-12-2023 Glucose [Mass/Vol] 230 mg/dL High 65-99 [facility] Glucose [Mass/Vol] 280 mg/dL High 65-99 [facility] Glucose [Mass/Vol] 268 mg/dL High 65-99 [facility] Glucose [Mass/Vol] 220 mg/dL High 65-99 [facility] Glucose [Mass/Vol] 205 mg/dL High 65-99 [facility] MAGNESIUMon 11-12-2023 Magnesium [Mass/Vol] 1.8 mg/dL Normal 1.8-2.6 [facility] Comment on above: Performed By: #### Snehal CANALES, BMP #### [facility] ([id number]) [address] [place] [address] PHOSPHORUSon 11-12-2023 Phosphate [Mass/Vol] 3.8 mg/dL Normal 2.4-4.9 [facility] Comment on above: Performed By: #### Snehal CANALES, BMP #### [facility] ([id number]) [address], [address] [place] [address] BASIC METABOLIC PANLon 11-10 Anion gap [Moles/Vol] 8 mmol/L Normal 5-15 [facility] Comment on above: Performed By: #### Snehal CANALES, BMP #### [facility] ([id number]) [address], [address] [place] [address] Calcium [Mass/Vol] 8.7 mg/dL Normal 8.5-10.5 [facility] Comment on above: Performed By: #### Snehal CANALES, BMP #### [facility] ([id number]) [address] [place] [address] Chloride [Moles/Vol] 99 mmol/L Normal 98-109 [facility] Comment on above: Performed By: #### Snehal CANALES, BMP #### [facility] ([id number]) [address] [place] [address] CO2 [Moles/Vol] 26 mmol/L Normal 22-32 [facility] Comment on above: Performed By: #### Snehal CANALES, BMP #### [facility] ([id number]) [address], [address] [place] [address] Creatinine [Mass/Vol] 1.45 mg/dL High 0.60-1.30 [facility] Comment on above: Result Comment: METH OD TRACEABLE TO IDMS STANDARD Performed By: #### Snehal CANALES, BMP #### [facility] ([id number]) [address], [address] [place] [address] GFR/1.73 sq M.predicted among non-blacks MDRD (S/P/Bld) [Vol rate/Area] 56 mL/min/{1.73_m2} Low >59 [facility] Comment on above: Result Comment: Reported eGFR is based on the CKD-EPI 2020 equation that does not use a race coefficient. Performed By: #### C ALLY, BMP #### [facility] ([id number]) [address], [address] [place] [address] Glucose [Mass/Vol] 153 mg/dL High 65-99 [facility] Comment on above: Performed By: #### C ALLY, BMP #### [facility] ([id number]) [address] [place] [address] Potassium [Moles/Vol] 3.9 mmol/L Normal 3.5-5.0 [facility] Comment on above: Performed By: #### C ALLY, BMP #### [facility] ([id number]) [address], [address] [place] [address] Sodium [Moles/Vol] 133 mmol/L Low 134-146 [facility] Comment on above: Performed By: #### C ALLY, BMP #### [facility] ([id number]) [address], [address] [place] [address] Urea nitrogen [Mass/Vol] 27 mg/dL High 5-23 [facility] Comment on above: Performed By: #### C ALLY, BMP #### [facility] ([id number]) [address], [address] [place] [address] COMPLETE BLOOD COUNTon 11-10 Erythrocyte distribution width (RBC) [Ratio] 24.2 % High 11.5-15.0 [facility] Comment on above: Performed By: #### C ALLY, BMP #### [facility] ([id number]) [address], [address] [place] [address] Hematocrit (Bld) [Volume fraction] 25.1 % Low 39-49 [facility] Comment on above: Performed By: #### C ALLY, BMP #### [facility] ([id number]) [address] [place] [address] Hemoglobin (Bld) [Mass/Vol] 8.2 g/dL Low 13.0-17.0 [facility] Comment on above: Performed By: #### Snehal CANALES, BMP #### [facility] ([id number]) [address] [place] [address] MCH (RBC) [Entitic mass] 25.5 pg Low 27-34 [facility] Comment on above: Performed By: #### Snehal CANALES, BMP #### [facility] ([id number]) [address] [place] [address] MCHC (RBC) [Mass/Vol] 32.7 g/dL Normal 32-36 [facility] Comment on above: Performed By: #### Snehal CANALES, BMP #### [facility] ([id number]) [address], [address] [place] [address] MCV (RBC) [Entitic vol] 78 fL Low 80-100 [facility] Comment on above: Performed By: #### Snehal CANALES, BMP #### [facility] ([id number]) [address], [address] [place] [address] Platelet mean volume (Bld) [Entitic vol] 9.0 fL Normal 7-12 [facility] Comment on above: Performed By: #### Snehal CANALES, BMP #### [facility] ([id number]) [address] [place] [address] Platelets (Bld) [#/Vol] 152 10*3/uL Normal 150-450 [facility] Comment on above: Performed By: #### Snehal CANALES, BMP #### [facility] ([id number]) [address], [address] [place] [address] RBC COUNT 3.22 X10E12/L Low 4.10-5.70 [facility] Comment on above: Performed By: #### Snehal CANALES, BMP #### [facility] ([id number]) [address] [place] [address] WBC (Bld) [#/Vol] 9.8 10*3/uL Normal 4.0-11.0 [facility] Comment on above: Performed By: #### Snehal CANALES, BMP #### [facility] ([id number]) [address] [place] [address] Glucose Glucometer (BldC) [M ass/Vol]on 11-11-2023 Glucose [Mass/Vol] 184 mg/dL High 65-99 [facility] Glucose [Mass/Vol] 179 mg/dL High 65-99 [facility] Glucose [Mass/Vol] 222 mg/dL High 65-99 [facility] Glucose [Mass/Vol] 303 mg/dL High 65-99 [facility] MAGNESIUMon 11-11-2023 Magnesium [Mass/Vol] 2.4 mg/dL Normal 1.8-2.6 [facility] Comment on above: Performed By: #### Snehal CANALES, BMP #### [facility] ([id number]) [address], [address] [place] [address] Magnesium [Mass/Vol] 1.9 mg/dL Normal 1.8-2.6 [facility] Comment on above: Performed By: #### Snehal CANALES, BMP #### [facility] ([id number]) [address], [address] [place] [address] PHOSPHORUSon 11-11-2023 Phosphate [Mass/Vol] 3.2 mg/dL Normal 2.4-4.9 [facility] Comment on above: Performed By: #### Snehal CANALES, BMP #### [facility] ([id number]) [address], [address] [place] [address] BASIC METABOLIC PANLon 11-09 Anion gap [Moles/Vol] 6 mmol/L Normal 5-15 [facility] Comment on above: Performed By: #### Snehal CANALES, BMP, , 2776-06 ####[facility] ([id number])[address], [address], [place] [address] Calcium [Mass/Vol] 8.5 mg/dL Normal 8.5-10.5 [facility] Comment on above: Performed By: #### Snehal CANALES, BMP, , 2776-06 ####[facility] ([id number])[address], [address], [place] [address] Chloride [Moles/Vol] 102 mmol/L Normal 98-109 [facility] Comment on above: Performed By: #### Snehal CANALES, BMP, , 2776-06 ####[facility] ([id number])[address], [place] [address] CO2 [Moles/Vol] 26 mmol/L Normal 22-32 [facility] Comment on above: Performed By: #### Snehal CANALES, BMP, , 2776-06 ####[facility] ([id number])[address], [address], [place] [address] Creatinine [Mass/Vol] 1.59 mg/dL High 0.60-1.30 [facility] Comment on above: Result Comment: METH OD TRACEABLE TO IDMS STANDARD Performed By: #### C ALLY, BMP, , 2776-06 ####[facility] ([id number])[address], [address], [place] [address] GFR/1.73 sq M.predicted among non-blacks MDRD (S/P/Bld) [Vol rate/Area] 50 mL/min/{1.73_m2} Low >59 [facility] Comment on above: Result Comment: Reported eGFR is based on the CKD-EPI 2020 equation that does not use a race coefficient. Performed By: #### KENDALL AHUJA, , 2776-06 ####[facility] ([id number])[address] [address], [place] [address] Glucose [Mass/Vol] 145 mg/dL High 65-99 [facility] Comment on above: Performed By: #### KENDALL AHUJA, , 2776-06 ####[facility] ([id number])[address] [address] Potassium [Moles/Vol] 3.9 mmol/L Normal 3.5-5.0 [facility] Comment on above: Performed By: #### KENDALL AHUJA, , 2776-06 ####[facility] ([id number])[address] [address] Sodium [Moles/Vol] 134 mmol/L Normal 134-146 [facility] Comment on above: Performed By: #### KENDALL AHUJA, , 2776-06 ####[facility] ([id number])[address] [address] Urea nitrogen [Mass/Vol] 23 mg/dL Normal 5-23 [facility] Comment on above: Performed By: #### KENDALL AHUJA, , 2776-06 ####[facility] ([id number])[address] [address] COMPLETE BLOOD COUNTon 11-09 Erythrocyte distribution width (RBC) [Ratio] 24.9 % High 11.5-15.0 [facility] Comment on above: Performed By: #### C ALLY, [facility], , 2776-06 ####[facility] ([id number])[address], [address] [place] [place] [address] Hematocrit (Bld) [Volume fraction] 24.5 % Low 39-49 [facility] Comment on above: Performed By: #### C ALLY, [facility], , 2776-06 ####[facility] ([id number])[address], [address] [place] [address] Hemoglobin (Bld) [Mass/Vol] 7.9 g/dL Low 13.0-17.0 [facility] Comment on above: Performed By: #### Snehal CANALES, [facility], , 2776-06 ####[facility] ([id number])[address], [address] [place] [address] MCH (RBC) [Entitic mass] 25.4 pg Low 27-34 [facility] Comment on above: Performed By: #### C ALLY, [facility], , 2776-06 ####[facility] ([id number])[address], [address] [place] [address] MCHC (RBC) [Mass/Vol] 32.4 g/dL Normal 32-36 [facility] Comment on above: Performed By: #### Snehal CANALES [facility], , 2776-06 ####[facility] ([id number])[address], [address] [place] [address] MCV (RBC) [Entitic vol] 78 fL Low 80-100 [facility] Comment on above: Performed By: #### Snehal CANALES, [facility], , 2776-06 ####[facility] ([id number])[address], [address] [place] [place] [address] Platelet mean volume (Bld) [Entitic vol] 9.1 fL Normal 7-12 [facility] Comment on above: Performed By: #### Snehal CANALES, KENDALL, , 2776-06 ####[facility] ([id number])[address], [address] [place] [address] Platelets (Bld) [#/Vol] 142 10*3/uL Low 150-450 [facility] Comment on above: Performed By: #### KENDALL AHUJA, , 2776-06 ####[facility] ([id number])[address], [address], [place] [address] RBC COUNT 3.14 X10E12/L Low 4.10-5.70 [facility] Comment on above: Performed By: #### KENDALL AHUJA, , 2776-06 ####[facility] ([id number])[address], [address] [place] [address] WBC (Bld) [#/Vol] 9.7 10*3/uL Normal 4.0-11.0 [facility] Comment on above: Performed By: #### KENDALL AHUJA, , 1 ####[facility] ([id number])[address], [address] [place] [address] Glucose Glucometer (BldC) [M ass/Vol]on 11-10-2023 Glucose [Mass/Vol] 168 mg/dL High 65-99 [facility] Glucose [Mass/Vol] 245 mg/dL High 65-99 [facility] Glucose [Mass/Vol] 155 mg/dL High 65-99 [facility] Glucose [Mass/Vol] 153 mg/dL High 65-99 [facility] MAGNESIUMon 11-10-2023 Magnesium [Mass/Vol] 2.2 mg/dL Normal 1.8-2.6 [facility] Comment on above: Performed By: #### Snehal CANALES, BMP #### [facility] ([id number]) [address], [address] [place] [address] Magnesium [Mass/Vol] 1.8 mg/dL Normal 1.8-2.6 [facility] Comment on above: Performed By: #### Snehal BC, BMP, , 1 ####[facility] ([id number])[address], [address], [place] [address] PHOSPHORUSon 11-10-2023 Phosphate [Mass/Vol] 3.1 mg/dL Normal 2.4-4.9 [facility] Comment on above: Performed By: #### Snehal CANALES, BMP, , 2776-06 ####[facility] ([id number])[address], [address], [place] [address] BASIC METABOLIC PANLon 11-08 Anion gap [Moles/Vol] 9 mmol/L Normal 5-15 [facility] Comment on above: Performed By: #### Snehal CANALES, 2639-3, BMP, 2156-11, , 2776-06 ####[facility] ([id number])[address], [address], [place] [address] Calcium [Mass/Vol] 8.4 mg/dL Low 8.5-10.5 [facility] Comment on above: Performed By: #### Snehal CANALES, 2639-3, BMP, 2156-11, , 2776-06 ####[facility] ([id number])[address], [address], [place] [address] Chloride [Moles/Vol] 104 mmol/L Normal 98-109 [facility] Comment on above: Performed By: #### Snehal CANALES, 2639-3, BMP, 2156-11, , 2776-06 ####[facility] ([id number])[address], [address], [place] [address] CO2 [Moles/Vol] 25 mmol/L Normal 22-32 [facility] Comment on above: Performed By: #### C BC, 2639-3, BMP, 7-6, 17298-0, 2776- ####[facility] ([id number])[address], [address], [place] [address] Creatinine [Mass/Vol] 1.35 mg/dL High 0.60-1.30 [facility] Comment on above: Result Comment: METH OD TRACEABLE TO IDMS STANDARD Performed By: #### C BC, 2639-3, BMP, 2156-6, 92652-6, 2776- ####[facility] ([id number])[address] [address] GFR/1.73 sq M.predicted among non-blacks MDRD (S/P/Bld) [Vol rate/Area] 61 mL/min/{1.73_m2} Normal >59 [facility] Comment on above: Result Comment: Reported eGFR is based on the CKD-EPI 2020 equation that does not use a race coefficient. Performed By: #### C BC, 2639-3, BMP, 2156-6, , 2776-1 ####[facility] ([id number])[address] [address] [place] [address] Glucose [Mass/Vol] 217 mg/dL High 65-99 [facility] Comment on above: Performed By: #### C BC, 2639-3, BMP, 215-6, 15922-3, 2776- ####[facility] ([id number])[address] [address] Potassium [Moles/Vol] 4.2 mmol/L Normal 3.5-5.0 [facility] Comment on above: Performed By: #### Snehal BC, 2639-3, BMP, 2157-6, 97334-2, 2776-1 ####[facility] ([id number])[address] [address] [place] [address] Sodium [Moles/Vol] 138 mmol/L Normal 134-146 [facility] Comment on above: Performed By: #### C BC, 2639-3, BMP, 2156-6, , 1 ####[facility] ([id number])[address], [address] [place] [address] Urea nitrogen [Mass/Vol] 23 mg/dL Normal 5-23 [facility] Comment on above: Performed By: #### C BC, 2639-3, BMP, 2156-11, , 2776-06 ####[facility] ([id number])[address] [address] [place] [address] CK [Catalytic activity/Vol]o n 11-09-2023 CPK 44 U/L Normal 24-195 [facility] Comment on above: Performed By: #### 2 157-6, 2638-3 ####[facility] ([id number])[address] [address] CPK 30 U/L Normal 24-195 [facility] Comment on above: Performed By: #### C BC, 2639-3, BMP, 2156-11, , 1 ####[facility] ([id number])[address] [address] COMPLETE BLOOD COUNTon 11-08 Erythrocyte distribution width (RBC) [Ratio] 24.9 % High 11.5-15.0 [facility] Comment on above: Performed By: #### C BC, 2639-3, BMP, 2156-11, , 2776-06 ####[facility] ([id number])[address] [address] [place] [address] Hematocrit (Bld) [Volume fraction] 26.8 % Low 39-49 [facility] Comment on above: Performed By: #### C ALLY, 2639-3, BMP, 2156-11, , 2776-06 ####[facility] ([id number])[address], [address], [place] [address] Hemoglobin (Bld) [Mass/Vol] 8.7 g/dL Low 13.0-17.0 [facility] Comment on above: Performed By: #### C ALLY, 2639-3, BMP, 2156-11, , 2776-06 ####[facility] ([id number])[address], [address] [place] [address] MCH (RBC) [Entitic mass] 24.8 pg Low 27-34 [facility] Comment on above: Performed By: #### Snehal CANALES, 2639-3, BMP, 2156-11, , 2776-06 ####[facility] ([id number])[address], [address], [place] [address] MCHC (RBC) [Mass/Vol] 32.6 g/dL Normal 32-36 [facility] Comment on above: Performed By: #### C ALLY, 2639-3, BMP, 2156-11, , 2776-06 ####[facility] ([id number])[address], [address] [place] [address] MCV (RBC) [Entitic vol] 76 fL Low 80-100 [facility] Comment on above: Performed By: #### Snehal CANALES, 2639-3, BMP, 2156-11, , 2776-06 ####[facility] ([id number])[address], [address] [place] [address] Platelet mean volume (Bld) [Entitic vol] 9.3 fL Normal 7-12 [facility] Comment on above: Performed By: #### Snehal CANALES, 2639-3, BMP, 2156-11, , 2776-06 ####[facility] ([id number])[address], [address] [place] [address] Platelets (Bld) [#/Vol] 184 10*3/uL Normal 150-450 [facility] Comment on above: Performed By: #### Snehal CANALES, 2639-3, [facility], 2156-11, , 2776-06 ####[facility] ([id number])[address], [address] [place] [address] RBC COUNT 3.53 X10E12/L Low 4.10-5.70 [facility] Comment on above: Performed By: #### Snehal CANALES, 2639-3, [facility], 2156-11, , 2776-06 ####[facility] ([id number])[address], [address] [address] WBC (Bld) [#/Vol] 11.0 10*3/uL Normal 4.0-11.0 [facility] Comment on above: Performed By: #### Snehal CANALES, 2639-3, [facility], 2156-11, , 2776-06 ####[facility] ([id number])[address] [address] Glucose Glucometer (BldC) [M ass/Vol]on 11-09-2023 Glucose [Mass/Vol] 243 mg/dL High 65-99 [facility] Glucose [Mass/Vol] 184 mg/dL High 65-99 [facility] Glucose [Mass/Vol] 199 mg/dL High 65-99 [facility] Glucose [Mass/Vol] 218 mg/dL High 65-99 [facility] Heparin unfractionated Chrom ogenic method Qn (PPP)on 11-09-2023 ANTI XA UFH 0.15 IU/mL Low 0.30-0.70 [facility] Comment on above: Result Comment: Opti mal time for testing is 6 hrs post dosage This test is specific for monitoring patients on UFH, and is not recommended for use with other Anti-Xa medications. Performed By: #### 3 274-8 ####[facility] ([id number])[address], [address] [place] [address] MAGNESIUMon 11-09-2023 Magnesium [Mass/Vol] 2.2 mg/dL Normal 1.8-2.6 [facility] Comment on above: Performed By: #### C ALLY, 2639-3, BMP, 2156-11, , 7-1 ####[facility] ([id number])[address], [address], [place] [address] Myoglobin [Mass/Vol]on 11-08 SERUM MYOGLOBIN 97.7 ng/mL Normal 17.4-105.7 [facility] Comment on above: Performed By: #### 2 157-6, 2639-3 ####[facility] ([id number])[address], [address], [place] [address] SERUM MYOGLOBIN 51.7 ng/mL Normal 17.4-105.7 [facility] Comment on above: Performed By: #### Snehal CANALES, 2639-3, BMP, 2156-11, , 7-1 ####[facility] ([id number])[address], [address] [place] [address] PHOSPHORUSon 11-09-2023 Phosphate [Mass/Vol] 4.4 mg/dL Normal 2.4-4.9 [facility] Comment on above: Performed By: #### C ALLY, 2639-3, BMP, 2156-11, , 7-1 ####[facility] ([id number])[address], [address] [place] [address] BASIC METABOLIC PANLon 11-07 Anion gap [Moles/Vol] 9 mmol/L Normal 5-15 [facility] Comment on above: Performed By: #### P INR #### [facility] ([id number]) [address], [address] [place] [address] Calcium [Mass/Vol] 8.4 mg/dL Low 8.5-10.5 [facility] Comment on above: Performed By: #### P INR #### [facility] ([id number]) [address], [address] [place] [address] Chloride [Moles/Vol] 106 mmol/L Normal 98-109 [facility] Comment on above: Performed By: #### P INR #### [facility] ([id number]) [address], [address] [place] [address] CO2 [Moles/Vol] 24 mmol/L Normal 22-32 [facility] Comment on above: Performed By: #### P INR #### [facility] ([id number]) [address], [address] [place] [address] Creatinine [Mass/Vol] 1.30 mg/dL Normal 0.60-1.30 [facility] Comment on above: Result Comment: METH OD TRACEABLE TO IDMS STANDARD Performed By: #### P INR #### [facility] ([id number]) [address], [address] [place] [address] GFR/1.73 sq M.predicted among non-blacks MDRD (S/P/Bld) [Vol rate/Area] 64 mL/min/{1.73_m2} Normal >59 [facility] Comment on above: Result Comment: Reported eGFR is based on the CKD-EPI 2020 equation that does not use a race coefficient. Performed By: #### P INR #### [facility] ([id number]) [address], [address] [place] [address] Glucose [Mass/Vol] 163 mg/dL High 65-99 [facility] Comment on above: Performed By: #### P INR #### [facility] ([id number]) [address] [place] [address] Potassium [Moles/Vol] 4.1 mmol/L Normal 3.5-5.0 [facility] Comment on above: Performed By: #### P INR #### [facility] ([id number]) [address] [place] [address] Sodium [Moles/Vol] 139 mmol/L Normal 134-146 [facility] Comment on above: Performed By: #### P INR #### [facility] ([id number]) [address], [address] [place] [address] Urea nitrogen [Mass/Vol] 23 mg/dL Normal 5-23 [facility] Comment on above: Performed By: #### P INR #### [facility] ([id number]) [address] [place] [address] Anion gap [Moles/Vol] 9 mmol/L Normal 5-15 [facility] Comment on above: Performed By: #### C BC, BMP #### [facility] ([id number]) [address] [place] [address] Calcium [Mass/Vol] 8.8 mg/dL Normal 8.5-10.5 [facility] Comment on above: Performed By: #### C BC, BMP #### [facility] ([id number]) [address] [place] [address] Chloride [Moles/Vol] 104 mmol/L Normal 98-109 [facility] Comment on above: Performed By: #### C BC, BMP #### [facility] ([id number]) [address], [address] [place] [address] CO2 [Moles/Vol] 25 mmol/L Normal 22-32 [facility] Comment on above: Performed By: #### C ALLY, BMP #### [facility] ([id number]) [address], [address] [place] [address] Creatinine [Mass/Vol] 1.70 mg/dL High 0.60-1.30 [facility] Comment on above: Result Comment: METH OD TRACEABLE TO IDMS STANDARD Performed By: #### C ALLY, BMP #### [facility] ([id number]) [address], [address] [place] [address] GFR/1.73 sq M.predicted among non-blacks MDRD (S/P/Bld) [Vol rate/Area] 46 mL/min/{1.73_m2} Low >59 [facility] Comment on above: Result Comment: Reported eGFR is based on the CKD-EPI 2020 equation that does not use a race coefficient. Performed By: #### C ALLY, BMP #### [facility] ([id number]) [address], [address] [place] [address] Glucose [Mass/Vol] 111 mg/dL High 65-99 [facility] Comment on above: Performed By: #### Snehal CANALES, BMP #### [facility] ([id number]) [address], [address] [place] [address] Potassium [Moles/Vol] 3.8 mmol/L Normal 3.5-5.0 [facility] Comment on above: Performed By: #### Snehal CANALES, BMP #### [facility] ([id number]) [address], [address] [place] [address] Sodium [Moles/Vol] 138 mmol/L Normal 134-146 [facility] Comment on above: Performed By: #### Snehal CANALES, BMP #### [facility] ([id number]) [address], [address] [place] [address] Urea nitrogen [Mass/Vol] 28 mg/dL High 5-23 [facility] Comment on above: Performed By: #### C BC, BMP #### [facility] ([id number]) [address], [address] [place] [address] CK [Catalytic activity/Vol]o n 11-08-2023 CPK 26 U/L Normal 24-195 [facility] Comment on above: Performed By: #### P INR #### [facility] ([id number]) [address], [address] [place] [address] COMPLETE BLOOD COUNTon 11-07 Erythrocyte distribution width (RBC) [Ratio] 24.8 % High 11.5-15.0 [facility] Comment on above: Performed By: #### P INR #### [facility] ([id number]) [address] [address] [place] [address] Hematocrit (Bld) [Volume fraction] 29.3 % Low 39-49 [facility] Comment on above: Performed By: #### P INR #### [facility] ([id number]) [address] [address] [place] [address] Hemoglobin (Bld) [Mass/Vol] 9.6 g/dL Low 13.0-17.0 [facility] Comment on above: Performed By: #### P INR #### [facility] ([id number]) [address], [address] [place] [address] MCH (RBC) [Entitic mass] 24.9 pg Low 27-34 [facility] Comment on above: Performed By: #### P INR #### [facility] ([id number]) [address], [address] [place] [address] MCHC (RBC) [Mass/Vol] 32.7 g/dL Normal 32-36 [facility] Comment on above: Performed By: #### P INR #### [facility] ([id number]) [address] [place] [address] MCV (RBC) [Entitic vol] 76 fL Low 80-100 [facility] Comment on above: Performed By: #### P INR #### [facility] ([id number]) [address], [address] [place] [address] Platelet mean volume (Bld) [Entitic vol] 8.7 fL Normal 7-12 [facility] Comment on above: Performed By: #### P INR #### [facility] ([id number]) [address], [facility] [address] [place] [address] Platelets (Bld) [#/Vol] 169 10*3/uL Normal 150-450 [facility] Comment on above: Performed By: #### P INR #### [facility] ([id number]) [address], [address] [place] [address] RBC COUNT 3.85 X10E12/L Low 4.10-5.70 [facility] Comment on above: Performed By: #### P INR #### [facility] ([id number]) [address], [facility] [address] [place] [address] WBC (Bld) [#/Vol] 13.5 10*3/uL High 4.0-11.0 [facility] Comment on above: Performed By: #### P INR #### [facility] ([id number]) [address], [address] [place] [address] Erythrocyte distribution width (RBC) [Ratio] 25.2 % High 11.5-15.0 [facility] Comment on above: Performed By: #### C BC, BMP #### [facility] ([id number]) [address], [address] [place] [address] Hematocrit (Bld) [Volume fraction] 33.0 % Low 39-49 [facility] Comment on above: Performed By: #### C BC, BMP #### [facility] ([id number]) [address], [address] [place] [address] Hemoglobin (Bld) [Mass/Vol] 10.8 g/dL Low 13.0-17.0 [facility] Comment on above: Performed By: #### Snehal CANALES, BMP #### [facility] ([id number]) [address], [address] [place] [address] MCH (RBC) [Entitic mass] 25.0 pg Low 27-34 [facility] Comment on above: Performed By: #### Snehal CANALES, BMP #### [facility] ([id number]) [address], [address] [place] [address] MCHC (RBC) [Mass/Vol] 32.8 g/dL Normal 32-36 [facility] Comment on above: Performed By: #### Snehal CANALES, BMP #### [facility] ([id number]) [address], [address] [place] [address] MCV (RBC) [Entitic vol] 76 fL Low 80-100 [facility] Comment on above: Performed By: #### Snehal CANALES, BMP #### [facility] ([id number]) [address], [address] [place] [address] Platelet mean volume (Bld) [Entitic vol] 8.8 fL Normal 7-12 [facility] Comment on above: Performed By: #### Snehal CANALES, BMP #### [facility] ([id number]) [address], [address] [place] [address] Platelets (Bld) [#/Vol] 172 10*3/uL Normal 150-450 [facility] Comment on above: Performed By: #### Snehal CANALES, BMP #### [facility] ([id number]) [address], [address] [place] [address] RBC COUNT 4.33 X10E12/L Normal 4.10-5.70 [facility] Comment on above: Performed By: #### C BC, BMP #### [facility] ([id number]) [address], [address] [address] WBC (Bld) [#/Vol] 9.3 10*3/uL Normal 4.0-11.0 [facility] Comment on above: Performed By: #### C ALLY, BMP #### [facility] ([id number]) [address], [address] [address] Glucose Glucometer (BldC) [M ass/Vol]on 11-08-2023 Glucose [Mass/Vol] 162 mg/dL High 65-99 [facility] Glucose [Mass/Vol] 96 mg/dL Normal 65-99 [facility] Glucose [Mass/Vol] 142 mg/dL High 65-99 [facility] Glucose [Mass/Vol] 114 mg/dL High 65-99 [facility] Lactate (P ekaterina) [Moles/Vol]o n 11-08-2023 LACTATE W/REFLEX 1.0 mmol/L Normal 0.4-2.0 [facility] Comment on above: Result Comment: Result did not trigger repeat Lactate, re-order if needed. Performed By: #### P INR #### [facility] ([id number]) [address] [address] MAGNESIUMon 11-08-2023 Magnesium [Mass/Vol] 1.7 mg/dL Low 1.8-2.6 [facility] Comment on above: Performed By: #### P INR #### [facility] ([id number]) [address], [address] [address] Myoglobin [Mass/Vol]on 11-07 SERUM MYOGLOBIN 33.1 ng/mL Normal 17.4-105.7 [facility] Comment on above: Performed By: #### P INR #### [facility] ([id number]) [address], [address] [place] [address] PHOSPHORUSon 11-08-2023 Phosphate [Mass/Vol] 4.0 mg/dL Normal 2.4-4.9 [facility] Comment on above: Performed By: #### P INR #### [facility] ([id number]) [address], [address] [place] [address] PROTIME AND INRon 11-08-2023 INR Coag (PPP) [Relative time] 1.3 {INR} High 0.8-1.1 [facility] Comment on above: Performed By: #### P INR #### [facility] ([id number]) [address], [address] [place] [address] PT Coag (PPP) [Time] 14.7 s High 9.8-13.2 [facility] [facility] Comment on above: Performed By: #### P INR #### [facility] ([id number]) [address] [place] [address] RAPID CARDIACon 11-08-2023 COURTNEY'S TEST Normal [facility] Comment on above: Performed By: #### A FAB5 #### [facility] ([id number]) [address] [place] [address] Base excess Calc (Bld) [Moles/Vol] 0.1 mmol/L Normal 0.0-2.0 [facility] Comment on above: Performed By: #### A FAB5 #### [facility] ([id number]) [address] [place] [address] Body temperature 98.6 [degF] Normal 37.0 [facility] Comment on above: Performed By: #### A FAB5 #### [facility] ([id number]) [address] [place] [address] Glucose [Mass/Vol] 117 mg/dL High 65-99 [facility] Comment on above: Performed By: #### A FAB5 #### [facility] ([id number]) [address] [place] [address] HCO3 (Bld) [Moles/Vol] 24.8 mmol/L Normal 22-26 [facility] Comment on above: Performed By: #### A FAB5 #### [facility] ([id number]) [address] [place] [address] Hematocrit (Bld) [Volume fraction] 31 % Low 39-49 [facility] Comment on above: Performed By: #### A FAB5 #### [facility] ([id number]) [address] [place] [address] Hemoglobin (Bld) [Mass/Vol] 10.2 g/dL Low 13.0-17.0 [facility] Comment on above: Performed By: #### A FAB5 #### [facility] ([id number]) [address] [place] [address] INSP. O2 CONC. 100 % Normal [facility] Comment on above: Performed By: #### A FAB5 #### [facility] ([id number]) [address] [place] [address] IONIZED CALCIUM 4.8 mg/dL Normal 4.5-5.3 [facility] Comment on above: Performed By: #### A FAB5 #### [facility] ([id number]) [address] [place] [address] Oxygen (Bld) [Partial pressure] 167 mm[Hg] High 80-100 [facility] Comment on above: Performed By: #### A FAB5 #### [facility] ([id number]) [address] [place] [address] Oxygen saturation in Blood 100.8 % Normal >90 [facility] Comment on above: Performed By: #### A FAB5 #### [facility] ([id number]) [address] [place] [address] PCO2 39.7 MMHG Normal 35-45 [facility] Comment on above: Performed By: #### A FAB5 #### [facility] ([id number]) [address] [place] [address] pH (Bld) 7.404 [pH] Normal 7.350-7.45 0 [facility] Comment on above: Performed By: #### A FAB5 #### [facility] ([id number]) [address] [place] [address] Potassium [Moles/Vol] 3.8 mmol/L Normal 3.5-5.0 [facility] Comment on above: Performed By: #### A FAB5 #### [facility] ([id number]) [address] [place] [address] SAMPLE SITE KECIA Normal [facility] Comment on above: Performed By: #### A FAB5 #### [facility] ([id number]) [address] [place] [address] SAMPLE TYPE Arterial Normal [facility] Comment on above: Performed By: #### A FAB5 #### [facility] ([id number]) [address] [place] [address] RAPID CARDIAC W/ NAon 2023 COURTNEY'S TEST Normal [facility] Comment on above: Performed By: #### P INR #### [facility] ([id number]) [address] [place] [address] Base excess Calc (Bld) [Moles/Vol] 0.2 mmol/L Normal 0.0-2.0 [facility] Comment on above: Performed By: #### P INR #### [facility] ([id number]) [address] [place] [address] Body temperature 98.6 [degF] Normal 37.0 [facility] Comment on above: Performed By: #### P INR #### [facility] ([id number]) [address], [address] [place] [address] Glucose [Mass/Vol] 125 mg/dL High 65-99 [facility] Comment on above: Performed By: #### P INR #### [facility] ([id number]) [address], [address] [place] [address] HCO3 (Bld) [Moles/Vol] 25.3 mmol/L Normal 22-[address] [facility] Comment on above: Performed By: #### P INR #### [facility] ([id number]) [address], [address] [place] [address] Hematocrit (Bld) [Volume fraction] 31 % Low 39-49 [facility] Comment on above: Performed By: #### P INR #### [facility] ([id number]) [address], [address] [place] [address] Hemoglobin (Bld) [Mass/Vol] 10.0 g/dL Low 13.0-17.0 [facility] Comment on above: Performed By: #### P INR #### [facility] ([id number]) [address], [address] [place] [address] INSP. O2 CONC. 50 % Normal [facility] Comment on above: Performed By: #### P INR #### [facility] ([id number]) [address], [address] [place] [address] IONIZED CALCIUM 4.7 mg/dL Normal 4.5-5.3 [facility] Comment on above: Performed By: #### P INR #### [facility] ([id number]) [address], [address] [place] [address] Oxygen (Bld) [Partial pressure] 131 mm[Hg] High 80-100 [facility] Comment on above: Performed By: #### P INR #### [facility] ([id number]) [address], [address] [place] [address] Oxygen saturation in Blood 99.9 % Normal >90 [facility] Comment on above: Performed By: #### P INR #### [facility] ([id number]) [address], [address] [place] [address] PCO2 42.7 MMHG Normal 35-45 [facility] Comment on above: Performed By: #### P INR #### [facility] ([id number]) [address], [address] [place] [address] pH (Bld) 7.381 [pH] Normal 7.350-7.45 0 [facility] Comment on above: Performed By: #### P INR #### [facility] ([id number]) [address], [address] [place] [address] Potassium [Moles/Vol] 3.7 mmol/L Normal 3.5-5.0 [facility] Comment on above: Performed By: #### P INR #### [facility] ([id number]) [address], [address] [place] [address] SAMPLE SITE KECIA Normal [facility] Comment on above: Performed By: #### P INR #### [facility] ([id number]) [address], [address] [place] [address] SAMPLE TYPE Arterial Normal [facility] Comment on above: Performed By: #### P INR #### [facility] ([id number]) [address], [address] [place] [address] Sodium [Moles/Vol] 139 mmol/L Normal 134-146 [facility] Comment on above: Performed By: #### P INR #### [facility] ([id number]) [address], [address] [place] [address] aPTT Coag (PPP) [Time]on aPTT Coag (Bld) [Time] 30 s Normal 26-37 Pr [facility] Comment on above: Performed By: #### P INR #### [facility] ([id number]) [address], [address] [place] [address] Glucose Glucometer (BldC) [M ass/Vol]on 11-07-2023 Glucose [Mass/Vol] 150 mg/dL High 65-99 [facility] Glucose [Mass/Vol] 58 mg/dL Low 65-99 [facility] POC [id number] 11-07-2023 Chloride [Moles/Vol] 98 mmol/L Normal 98-109 [facility] Comment on above: Performed By: #### I ELGBC #### [facility] ([id number]) [address] [place] [address] CO2 [Moles/Vol] 31 mmol/L Normal 22-32 [facility] Comment on above: Performed By: #### I ELGBC #### [facility] ([id number]) [address] [place] [address] Creatinine [Mass/Vol] 1.9 mg/dL High 0.7-1.2 [facility] Comment on above: Result Comment: METH OD TRACEABLE TO IDMS STANDARD Performed By: #### I ELGBC #### [facility] ([id number]) [address] [place] [address] GFR/1.73 sq M.predicted among non-blacks MDRD (S/P/Bld) [Vol rate/Area] 40 mL/min/{1.73_m2} Low >59 [facility] Comment on above: Result Comment: Reported eGFR is based on the CKD-EPI 2020 equation that does not use a race coefficient. Performed By: #### I ELGBC #### [facility] ([id number]) [address] [place] [address] Glucose [Mass/Vol] 72 mg/dL Normal 65-99 [facility] Comment on above: Performed By: #### I [facility] #### [facility] ([id number]) [address] [place] [address] Potassium [Moles/Vol] 3.6 mmol/L Normal 3.5-5.0 [facility] Comment on above: Performed By: #### I [facility] #### [facility] ([id number]) [address] [place] [address] Sodium [Moles/Vol] 139 mmol/L Normal 134-146 [facility] Comment on above: Performed By: #### I [facility] #### [facility] ([id number]) [address] [place] [address] Urea nitrogen [Mass/Vol] 31 mg/dL High 6-23 [facility] Comment on above: Performed By: #### I [facility] #### [facility] ([id number]) [address] [place] [address] PROTIME AND INRon 11-07-2023 INR Coag (PPP) [Relative time] 1.3 {INR} High 0.8-1.1 [facility] Comment on above: Performed By: #### P INR #### [facility] ([id number]) [address] [facility], [address] [place] [address] PT Coag (PPP) [Time] 14.5 s High 9.8-13.2 [facility] Comment on above: Performed By: #### P INR #### [facility] ([id number]) [address] [facility], [address] [place] [address] ECG 12 Leadon 10-24-2023 [facility] Work Phone: Consent for Treatmenton 10-04 Consent for Treatment [id number]#1.00TIFF Marquise Chatman [facility] Vascular Office/Cl inic Noteon [...] 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 Normal [facility] Comment on above: Result Comment: Elec tronically [...] MD Transcribed by: HASEEB Technologist: TARAN Camarillo [facility] CHEMISTRYOrdered By: SYSTEM SYSTEM on 10-19-2023 Creatinine [...] M Zuleta DO Transcribed by: HASEEB Technologist: RRB Technical Comments GFR (mL/min/1/73m2) 50 Contrast: Isovue 370 Contrast amount in ml's: 150 Normal [facility] Consent for Treatmenton 10-03 Consent for Treatment [id number]#1.00TIFF [facility] Creatinineon 10-19-2023 Creatinine [Mass/Vol] 1.6 mg/dL High 0.5-1.3 [facility] Comment on above: Performed By: #### 2 [id number] #### [facility] [address] [place] [address] Physician Orderon 10-19-2023 Physician Order [id number]#1.00TIFF [facility] eGFRon 10-19-2023 eGFR 50 mL/min/1.73 m2 Low >=59 [facility] Comment on above: Order Comment: Order added by Discern Expert. Performed By: #### 1 [id number] #### [facility] [address] [place] [address] Outside Progress Noteon 10-03 Outside Progress Note [id number]#1.00TIFF [facility] Physician Orderon 10-18-2023 Physician Order [id number]#1.00TIF F [facility] Physician Order [id number]#1.00TIFF [facility] Basophils Auto (Bld) [#/Vol] on 10-06-2023 Basophils (Bld) [#/Vol] 0.0 10 3/uL 0.0-0.1 [facility] Basophils/100 WBC Auto (Bld) on 10-06-2023 Basophils/100 WBC (Bld) 0.3 % 0.2-2.0 [facility] Eosinophils/100 WBC Auto (Bl d)on 10-06-2023 Eosinophils/100 WBC (Bld) 1.9 % 0.9-7.0 [facility] Erythrocyte distribution wid th Auto (RBC) [Ratio]on 10-06-2023 Erythrocyte distribution width (RBC) [Ratio] 19.9 % High 11.0-15.0 [facility] Estimated glomerular filtrat ion rate (GFR) non- Americanon 10-06-2023 GFR/1.73 sq M.predicted among non-blacks MDRD (S/P/Bld) [Vol rate/Area] 42 mL/min/{1.73_m2} Low >=60 [facility] Globulin Calc (S) [Mass/Vol] on 10-06-2023 Globulin (S) [Mass/Vol] 4.3 g/dL [facility] Hematocrit Auto (Bld) [Volum e fraction]on 10-06-2023 Hematocrit (Bld) [Volume fraction] 28.3 % Low 42.0-54.0 [facility] Hemoglobin [Mass/volume] in Bloodon 10-06-2023 Hemoglobin (Bld) [Mass/Vol] 8.4 g/dL Low 14.0-18.0 [facility] Laboratory - Chemistry and C hemistry - challengeon 10-06-2023 Albumin [Mass/Vol] 2.1 g/dL Low 3.4-5.0 [facility] ALP [Catalytic activity/Vol] 133 U/L High 46-116 [facility] ALT [Catalytic activity/Vol] 18 U/L 16-63 [facility] AST [Catalytic activity/Vol] 20 U/L 15-37 [facility] Bilirubin [Mass/Vol] 0.3 mg/dL 0.2-1.0 [facility] Calcium [Mass/Vol] 9.4 mg/dL 8.5-10.1 [facility] Chloride [Moles/Vol] 103 mmol/L 98-107 [facility] CO2 [Moles/Vol] 23.7 mmol/L 21.0-32.0 [facility] Creatinine [Mass/Vol] 1.67 mg/dL High 0.70-1.30 [facility] GFR/1.73 sq M.predicted MDRD (S/P/Bld) [Vol rate/Area] 52 mL/min/{1.73_m2} Low >=60 [facility] Glucose [Mass/Vol] 91 mg/dL 74-106 [facility] Magnesium [Mass/Vol] 1.6 mg/dL Low 1.8-2.4 [facility] Potassium [Moles/Vol] 4.8 mmol/L 3.5-5.1 [facility] Protein [Mass/Vol] 6.4 g/dL 6.4-8.2 [facility] Sodium [Moles/Vol] 136 mmol/L 136-145 [facility] Urea nitrogen [Mass/Vol] 29.0 mg/dL High 7.0-18.0 [facility] Urea nitrogen/Creatinine [Mass ratio] 17.4 mg/mg [facility] Laboratory - Hematology and Cell countson 10-06-2023 ESR (Bld) [Velocity] mm/h High <=20 [facility] Immature granulocytes/100 WBC (Bld) 1.5 % High 0.0-0.5 [facility] Leukocytes [#/volume] correc jorge for nucleated erythrocytes in Blood by Automated counon 10-06-2023 WBC corrected for nucl RBC Auto (Bld) [#/Vol] 11.6 10 3/uL High 4.0-11.0 [facility] Lymphocytes Auto (Bld) [#/Vo l]on 10-06-2023 Lymphocytes (Bld) [#/Vol] 1.5 10 3/uL 1.2-3.8 [facility] Lymphocytes/100 WBC Auto (Bl d)on 10-06-2023 Lymphocytes/100 WBC (Bld) 12.9 % Low 20.5-60.0 [facility] MCH Auto (RBC) [Entitic mass ]on 10-06-2023 MCH (RBC) [Entitic mass] 22.5 pg Low 25.9-34.0 [facility] MCHC Auto (RBC) [Mass/Vol]on 10-06-2023 MCHC (RBC) [Mass/Vol] 29.7 g/dL Low 29.9-35.2 [facility] MCV Auto (RBC) [Entitic vol] on 10-06-2023 MCV (RBC) [Entitic vol] 75.9 fL Low 80.0-94.0 [facility] Monocytes Auto (Bld) [#/Vol] on 10-06-2023 Monocytes (Bld) [#/Vol] 1.3 10 3/uL High 0.3-0.8 [facility] Monocytes/100 WBC Auto (Bld) on 10-06-2023 Monocytes/100 WBC (Bld) 10.9 % 1.7-12.0 [facility] Neutrophils Auto (Bld) [#/Vo l]on 10-06-2023 Neutrophils (Bld) [#/Vol] 8.4 10 3/uL High 1.4-6.5 [facility] Neutrophils/100 WBC Auto (Bl d)on 10-06-2023 Neutrophils/100 WBC (Bld) 72.5 % 43.0-75.0 [facility] No Panel Informationon 10-05 Eosinophils # (Auto) 0.2 10 3/uL 0.0-0.7 [facility] Immature Granulocyte # (Auto) 0.17 10 3/uL High 0.00-0.03 [facility] Platelet mean volume Auto (B ld) [Entitic vol]on 10-06-2023 Platelet mean volume (Bld) [Entitic vol] 10.3 fL 9.5-13.5 [facility] Platelets Auto (Bld) [#/Vol] on 10-06-2023 Platelets (Bld) [#/Vol] 233 10 3/uL 150-450 [facility] RBC Auto (Bld) [#/Vol]on RBC (Bld) [#/Vol] 3.73 10 6/uL Low 4.70-6.10 [facility] Serum or plasma albumin/glob ulin mass ratioon 10-06-2023 Albumin/Globulin [Mass ratio] 0.5 {ratio} [facility] Serum or plasma anion gap de terminationon 10-06-2023 Anion gap [Moles/Vol] 14.1 mmol/L [facility] Basophils Auto (Bld) [#/Vol] on 10-05-2023 Basophils (Bld) [#/Vol] 0.1 10 3/uL 0.0-0.1 [facility] Basophils/100 WBC Auto (Bld) on 10-05-2023 Basophils/100 WBC (Bld) 0.6 % 0.2-2.0 [facility] Eosinophils/100 WBC Auto (Bl d)on 10-05-2023 Eosinophils/100 WBC (Bld) 3.3 % 0.9-7.0 [facility] Erythrocyte distribution wid th Auto (RBC) [Ratio]on 10-05-2023 Erythrocyte distribution width (RBC) [Ratio] 19.6 % High 11.0-15.0 [facility] Estimated glomerular filtrat ion rate (GFR) non- Americanon 10-05-2023 GFR/1.73 sq M.predicted among non-blacks MDRD (S/P/Bld) [Vol rate/Area] 41 mL/min/{1.73_m2} Low >=60 [facility] Globulin Calc (S) [Mass/Vol] on 10-05-2023 Globulin (S) [Mass/Vol] 4.7 g/dL [facility] Hematocrit Auto (Bld) [Volum e fraction]on 10-05-2023 Hematocrit (Bld) [Volume fraction] 29.9 % Low 42.0-54.0 [facility] Hemoglobin [Mass/volume] in Bloodon 10-05-2023 Hemoglobin (Bld) [Mass/Vol] 9.0 g/dL Low 14.0-18.0 [facility] Guy 10-05-2023 L Specimen: [id number] Received: 10/06/23 Status: COLTON Nath Num: [id number] Spec Type: Surgical Subm Dr: Paula Soto DPM, MS Tissues: A DIGIT AMPUTATION (RT 2,3,4 AND 5 METATARSAL AM) Procedures: HE/6, Gross/Micro L4, Decalcification Age/ Patient Sex Location Account Attending Physician Solomon Feldman SR 58/M LABELL [id number] Paula Soto DPM, MS SPEC NUM: [id number] RECD: 10/06/23 STATUS: COLTON NATH NUM: [id number] SHAKIRA: 10/05/[address]: Paula Soto DPM, MS ENTERED: 10/06/23-13[address] [facility] [address]: Aurelio,Lab SPEC TYPE: Surgical DEPT: RAMSEY [...] specimen demonstrates firm, yellow spongy bone matrix. Kitchen Work Supervisor sections are submitted as follows: A1: Skin and soft tissue margins A2: Second digit, bone margin; #1 proximal phalangeal margin (following decal) A3: Third digit, bone margin; #2 proximal phalangeal margin (following decal) A4: Fourth digit, bone margin; #3 proximal phalangeal margin (following decal) A5: Fifth digit, bone margin; #4 proximal phalangeal margin (following decal) Specimen: [id number] Received: 10/06/23 Status: COLTON Nath Num: [id number] Spec Type: Surgical Subm Dr: Paula Soto,LINDSEY, [place] Tissues: A DIGIT AMPUTATION (RT 2,3,4 AND 5 METATARSAL AM) Procedures: HE/6, Gross/Micro L4, Decalcification Patient: Solomon Feldman SR [id number] (Continued) Specimen: [id number] Received: 10/06/23 (Continued) Gross Description (Continued) Signed (signature on file) [place]_ Padmini Linn MD 10/10/23 1542 Specimen: [id number] Received: 10/06/23 Status: COLTON Nath Num: [id number] Spec Type: Surgical Subm Dr: Paula Soto,LINDSYE, MS Tissues: A DIGIT AMPUTATION (RT 2,3,4 AND 5 METATARSAL AM) Procedures: HE/, Gross/Micro L4, Decalcification Patient: Solomon Feldman SR [id number] (Continued) Specimen: [id number] Received: 10/06/23 (Continued) Gross Description (Continued) A6: Full-thickness section to include skin, underlying soft tissue and bone (following decal) Clinical history: None given CPT Codes 33238 FOREFOOT AND DIGITS Specimen: [id number] Received: 10/06/23-130 Status: COLTON Nath Num: [id number] Spec Type: Surgical Subm Dr: Paula Soto,LINDSEY, MS Tissues: A DIGIT AMPUTATION (RT 2,3,4 AND 5 METATARSAL AM) Procedures: HE/6, Gross/Micro L4, Decalcification Patient: Solomon Feldman SR [id number] (Continued) Signed (signature on file) Padmini Linn MD 10/10/23 1542 Normal [facility] Laboratory - Chemistry and C hemistry - challengeon 10-05-2023 Albumin [Mass/Vol] 2.2 g/dL Low 3.4-5.0 [facility] ALP [Catalytic activity/Vol] 140 U/L High 46-116 [facility] ALT [Catalytic activity/Vol] 18 U/L 16-63 [facility] AST [Catalytic activity/Vol] 22 U/L 15-37 [facility] Bilirubin [Mass/Vol] 0.5 mg/dL 0.2-1.0 [facility] Calcium [Mass/Vol] 9.2 mg/dL 8.5-10.1 [facility] Chloride [Moles/Vol] 100 mmol/L 98-107 [facility] CO2 [Moles/Vol] 22.6 mmol/L 21.0-32.0 [facility] Creatinine [Mass/Vol] 1.74 mg/dL High 0.70-1.30 [facility] GFR/1.73 sq M.predicted MDRD (S/P/Bld) [Vol rate/Area] 49 mL/min/{1.73_m2} Low >=60 [facility] Glucose [Mass/Vol] 162 mg/dL High 74-106 [facility] Magnesium [Mass/Vol] 1.7 mg/dL Low 1.8-2.4 [facility] Potassium [Moles/Vol] 5.3 mmol/L High 3.5-5.1 [facility] Protein [Mass/Vol] 6.9 g/dL 6.4-8.2 [facility] Sodium [Moles/Vol] 133 mmol/L Low 136-145 [facility] Urea nitrogen [Mass/Vol] 30.0 mg/dL High 7.0-18.0 [facility] Urea nitrogen/Creatinine [Mass ratio] 17.2 mg/mg [facility] Laboratory - Hematology and Cell countson 10-05-2023 ESR (Bld) [Velocity] 130 mm/h High <=20 [facility] Immature granulocytes/100 WBC (Bld) 1.3 % High 0.0-0.5 [facility] Leukocytes [#/volume] correc jorge for nucleated erythrocytes in Blood by Automated counon 10-05-2023 WBC corrected for nucl RBC Auto (Bld) [#/Vol] 12.6 10 3/uL High 4.0-11.0 [facility] Lymphocytes Auto (Bld) [#/Vo l]on 10-05-2023 Lymphocytes (Bld) [#/Vol] 1.3 10 3/uL 1.2-3.8 [facility] Lymphocytes/100 WBC Auto (Bl d)on 10-05-2023 Lymphocytes/100 WBC (Bld) 10.1 % Low 20.5-60.0 [facility] MCH Auto (RBC) [Entitic mass ]on 10-05-2023 MCH (RBC) [Entitic mass] 22.7 pg Low 25.9-34.0 [facility] MCHC Auto (RBC) [Mass/Vol]on 10-05-2023 MCHC (RBC) [Mass/Vol] 30.1 g/dL 29.9-35.2 [facility] MCV Auto (RBC) [Entitic vol] on 10-05-2023 MCV (RBC) [Entitic vol] 75.3 fL Low 80.0-94.0 [facility] Monocytes Auto (Bld) [#/Vol] on 10-05-2023 Monocytes (Bld) [#/Vol] 1.4 10 3/uL High 0.3-0.8 [facility] Monocytes/100 WBC Auto (Bld) on 10-05-2023 Monocytes/100 WBC (Bld) 10.9 % 1.7-12.0 [facility] Neutrophils Auto (Bld) [#/Vo l]on 10-05-2023 Neutrophils (Bld) [#/Vol] 9.3 10 3/uL High 1.4-6.5 [facility] Neutrophils/100 WBC Auto (Bl d)on 10-05-2023 Neutrophils/100 WBC (Bld) 73.8 % 43.0-75.0 [facility] No Panel Informationon 10-04 Eosinophils # (Auto) 0.4 10 3/uL 0.0-0.7 [facility] Immature Granulocyte # (Auto) 0.16 10 3/uL High 0.00-0.03 [facility] Platelet mean volume Auto (B ld) [Entitic vol]on 10-05-2023 Platelet mean volume (Bld) [Entitic vol] 11.3 fL 9.5-13.5 [facility] Platelets Auto (Bld) [#/Vol] on 10-05-2023 Platelets (Bld) [#/Vol] 203 10 3/uL 150-450 [facility] RBC Auto (Bld) [#/Vol]on RBC (Bld) [#/Vol] 3.97 10 6/uL Low 4.70-6.10 [facility] Serum or plasma albumin/glob ulin mass ratioon 10-05-2023 Albumin/Globulin [Mass ratio] 0.5 {ratio} [facility] Serum or plasma anion gap de terminationon 10-05-2023 Anion gap [Moles/Vol] 15.7 [facility] Basophils Auto (Bld) [#/Vol] on 10-04-2023 Basophils (Bld) [#/Vol] 0.1 10 3/uL 0.0-0.1 [facility] Basophils/100 WBC Auto (Bld) on 10-04-2023 Basophils/100 WBC (Bld) 0.5 % 0.2-2.0 [facility] Eosinophils/100 WBC Auto (Bl d)on 10-04-2023 Eosinophils/100 WBC (Bld) 3.6 % 0.9-7.0 [facility] Erythrocyte distribution wid th Auto (RBC) [Ratio]on 10-04-2023 Erythrocyte distribution width (RBC) [Ratio] 19.6 % High 11.0-15.0 [facility] Estimated glomerular filtrat ion rate (GFR) non- Americanon 10-04-2023 GFR/1.73 sq M.predicted among non-blacks MDRD (S/P/Bld) [Vol rate/Area] 44 mL/min/{1.73_m2} Low >=60 [facility] Globulin Calc (S) [Mass/Vol] on 10-04-2023 Globulin (S) [Mass/Vol] 4.3 g/dL [facility] Hematocrit Auto (Bld) [Volum e fraction]on 10-04-2023 Hematocrit (Bld) [Volume fraction] 26.8 % Low 42.0-54.0 [facility] Hemoglobin [Mass/volume] in Bloodon 10-04-2023 Hemoglobin (Bld) [Mass/Vol] 7.9 g/dL Low 14.0-18.0 [facility] Laboratory - Chemistry and C hemistry - challengeon 10-04-2023 Albumin [Mass/Vol] 1.9 g/dL Low 3.4-5.0 [facility] ALP [Catalytic activity/Vol] 135 U/L High 46-116 [facility] ALT [Catalytic activity/Vol] 16 U/L 16-63 [facility] AST [Catalytic activity/Vol] 19 U/L 15-37 [facility] Bilirubin [Mass/Vol] 0.4 mg/dL 0.2-1.0 [facility] Calcium [Mass/Vol] 7.8 mg/dL Low 8.5-10.1 [facility] Chloride [Moles/Vol] 102 mmol/L 98-107 [facility] CO2 [Moles/Vol] 25.0 mmol/L 21.0-32.0 [facility] Creatinine [Mass/Vol] 1.61 mg/dL High 0.70-1.30 [facility] GFR/1.73 sq M.predicted MDRD (S/P/Bld) [Vol rate/Area] 54 mL/min/{1.73_m2} Low >=60 [facility] Glucose [Mass/Vol] 136 mg/dL High 74-106 [facility] Magnesium [Mass/Vol] 1.7 mg/dL Low 1.8-2.4 [facility] Potassium [Moles/Vol] 5.1 mmol/L 3.5-5.1 [facility] Protein [Mass/Vol] 6.2 g/dL Low 6.4-8.2 [facility] Sodium [Moles/Vol] 134 mmol/L Low 136-145 [facility] Urea nitrogen [Mass/Vol] 25.0 mg/dL High 7.0-18.0 [facility] Urea nitrogen/Creatinine [Mass ratio] 15.5 mg/mg [facility] Laboratory - Hematology and Cell countson 10-04-2023 ESR (Bld) [Velocity] 117 mm/h High <=20 [facility] Immature granulocytes/100 WBC (Bld) 0.9 % High 0.0-0.5 [facility] Leukocytes [#/volume] correc jorge for nucleated erythrocytes in Blood by Automated counon 10-04-2023 WBC corrected for nucl RBC Auto (Bld) [#/Vol] 11.5 10 3/uL High 4.0-11.0 [facility] Lymphocytes Auto (Bld) [#/Vo l]on 10-04-2023 Lymphocytes (Bld) [#/Vol] 1.3 10 3/uL 1.2-3.8 [facility] Lymphocytes/100 WBC Auto (Bl d)on 10-04-2023 Lymphocytes/100 WBC (Bld) 10.9 % Low 20.5-60.0 [facility] MCH Auto (RBC) [Entitic mass ]on 10-04-2023 MCH (RBC) [Entitic mass] 22.4 pg Low 25.9-34.0 [facility] MCHC Auto (RBC) [Mass/Vol]on 10-04-2023 MCHC (RBC) [Mass/Vol] 29.5 g/dL Low 29.9-35.2 [facility] MCV Auto (RBC) [Entitic vol] on 10-04-2023 MCV (RBC) [Entitic vol] 75.9 fL Low 80.0-94.0 [facility] Monocytes Auto (Bld) [#/Vol] on 10-04-2023 Monocytes (Bld) [#/Vol] 1.4 10 3/uL High 0.3-0.8 [facility] Monocytes/100 WBC Auto (Bld) on 10-04-2023 Monocytes/100 WBC (Bld) 12.4 % High 1.7-12.0 [facility] Neutrophils Auto (Bld) [#/Vo l]on 10-04-2023 Neutrophils (Bld) [#/Vol] 8.3 10 3/uL High 1.4-6.5 [facility] Neutrophils/100 WBC Auto (Bl d)on 10-04-2023 Neutrophils/100 WBC (Bld) 71.7 % 43.0-75.0 [facility] No Panel Informationon 10-03 Eosinophils # (Auto) 0.4 10 3/uL 0.0-0.7 [facility] Immature Granulocyte # (Auto) 0.10 10 3/uL High 0.00-0.03 [facility] Platelet mean volume Auto (B ld) [Entitic vol]on 10-04-2023 Platelet mean volume (Bld) [Entitic vol] 11.5 fL 9.5-13.5 [facility] Platelets Auto (Bld) [#/Vol] on 10-04-2023 Platelets (Bld) [#/Vol] 154 10 3/uL 150-450 [facility] RBC Auto (Bld) [#/Vol]on RBC (Bld) [#/Vol] 3.53 10 6/uL Low 4.70-6.10 [facility] Serum or plasma albumin/glob ulin mass ratioon 10-04-2023 Albumin/Globulin [Mass ratio] 0.4 {ratio} [facility] Serum or plasma anion gap de terminationon 10-04-2023 Anion gap [Moles/Vol] 12.1 mmol/L [facility] Basophils Auto (Bld) [#/Vol] on 10-03-2023 Basophils (Bld) [#/Vol] 0.1 10 3/uL 0.0-0.1 [facility] Basophils/100 WBC Auto (Bld) on 10-03-2023 Basophils/100 WBC (Bld) 0.7 % 0.2-2.0 [facility] Eosinophils/100 WBC Auto (Bl d)on 10-03-2023 Eosinophils/100 WBC (Bld) 2.7 % 0.9-7.0 [facility] Erythrocyte distribution wid th Auto (RBC) [Ratio]on 10-03-2023 Erythrocyte distribution width (RBC) [Ratio] 19.2 % High 11.0-15.0 [facility] Estimated glomerular filtrat ion rate (GFR) non- Americanon 10-03-2023 GFR/1.73 sq M.predicted among non-blacks MDRD (S/P/Bld) [Vol rate/Area] 46 mL/min/{1.73_m2} Low >=60 [facility] Globulin Calc (S) [Mass/Vol] on 10-03-2023 Globulin (S) [Mass/Vol] 4.1 g/dL [facility] Hematocrit Auto (Bld) [Volum e fraction]on 10-03-2023 Hematocrit (Bld) [Volume fraction] 26.4 % Low 42.0-54.0 [facility] Hemoglobin [Mass/volume] in Bloodon 10-03-2023 Hemoglobin (Bld) [Mass/Vol] 8.1 g/dL Low 14.0-18.0 [facility] Laboratory - Chemistry and C hemistry - challengeon 10-03-2023 Albumin [Mass/Vol] 1.9 g/dL Low 3.4-5.0 [facility] ALP [Catalytic activity/Vol] 140 U/L High 46-116 [facility] ALT [Catalytic activity/Vol] 17 U/L 16-63 [facility] AST [Catalytic activity/Vol] 21 U/L 15-37 [facility] Bilirubin [Mass/Vol] 0.3 mg/dL 0.2-1.0 [facility] Calcium [Mass/Vol] 6.7 mg/dL Low 8.5-10.1 [facility] Chloride [Moles/Vol] 101 mmol/L 98-107 [facility] CO2 [Moles/Vol] 23.9 mmol/L 21.0-32.0 [facility] Creatinine [Mass/Vol] 1.57 mg/dL High 0.70-1.30 [facility] GFR/1.73 sq M.predicted MDRD (S/P/Bld) [Vol rate/Area] 55 mL/min/{1.73_m2} Low >=60 [facility] Glucose [Mass/Vol] 142 mg/dL High 74-106 [facility] Magnesium [Mass/Vol] 1.3 mg/dL Low 1.8-2.4 [facility] Potassium [Moles/Vol] 4.8 mmol/L 3.5-5.1 [facility] Protein [Mass/Vol] 6.0 g/dL Low 6.4-8.2 [facility] Sodium [Moles/Vol] 134 mmol/L Low 136-145 [facility] Urea nitrogen [Mass/Vol] 23.0 mg/dL High 7.0-18.0 [facility] Urea nitrogen/Creatinine [Mass ratio] 14.6 mg/mg [facility] Laboratory - Hematology and Cell countson 10-03-2023 ESR (Bld) [Velocity] mm/h High <=20 [facility] Immature granulocytes/100 WBC (Bld) 1.0 % High 0.0-0.5 [facility] Leukocytes [#/volume] correc jorge for nucleated erythrocytes in Blood by Automated counon 10-03-2023 WBC corrected for nucl RBC Auto (Bld) [#/Vol] 11.6 10 3/uL High 4.0-11.0 [facility] Lymphocytes Auto (Bld) [#/Vo l]on 10-03-2023 Lymphocytes (Bld) [#/Vol] 1.4 10 3/uL 1.2-3.8 [facility] Lymphocytes/100 WBC Auto (Bl d)on 10-03-2023 Lymphocytes/100 WBC (Bld) 12.1 % Low 20.5-60.0 [facility] MCH Auto (RBC) [Entitic mass ]on 10-03-2023 MCH (RBC) [Entitic mass] 23.2 pg Low 25.9-34.0 [facility] MCHC Auto (RBC) [Mass/Vol]on 10-03-2023 MCHC (RBC) [Mass/Vol] 30.7 g/dL 29.9-35.2 [facility] MCV Auto (RBC) [Entitic vol] on 10-03-2023 MCV (RBC) [Entitic vol] 75.6 fL Low 80.0-94.0 [facility] Monocytes Auto (Bld) [#/Vol] on 10-03-2023 Monocytes (Bld) [#/Vol] 1.3 10 3/uL High 0.3-0.8 [facility] Monocytes/100 WBC Auto (Bld) on 10-03-2023 Monocytes/100 WBC (Bld) 10.8 % 1.7-12.0 [facility] Neutrophils Auto (Bld) [#/Vo l]on 10-03-2023 Neutrophils (Bld) [#/Vol] 8.5 10 3/uL High 1.4-6.5 [facility] Neutrophils/100 WBC Auto (Bl d)on 10-03-2023 Neutrophils/100 WBC (Bld) 72.7 % 43.0-75.0 [facility] No Panel Informationon 10-02 Eosinophils # (Auto) 0.3 10 3/uL 0.0-0.7 [facility] Immature Granulocyte # (Auto) 0.12 10 3/uL High 0.00-0.03 [facility] Platelet mean volume Auto (B ld) [Entitic vol]on 10-03-2023 Platelet mean volume (Bld) [Entitic vol] 11.3 fL 9.5-13.5 [facility] Platelets Auto (Bld) [#/Vol] on 10-03-2023 Platelets (Bld) [#/Vol] 141 10 3/uL Low 150-450 [facility] RBC Auto (Bld) [#/Vol]on RBC (Bld) [#/Vol] 3.49 10 6/uL Low 4.70-6.10 [facility] Serum or plasma albumin/glob ulin mass ratioon 10-03-2023 Albumin/Globulin [Mass ratio] 0.5 {ratio} [facility] Serum or plasma anion gap de terminationon 10-03-2023 Anion gap [Moles/Vol] 13.9 [facility] Basophils Auto (Bld) [#/Vol] on 10-02-2023 Basophils (Bld) [#/Vol] 0.0 10 3/uL 0.0-0.1 [facility] Basophils/100 WBC Auto (Bld) on 10-02-2023 Basophils/100 WBC (Bld) 0.4 % 0.2-2.0 [facility] Eosinophils/100 WBC Auto (Bl d)on 10-02-2023 Eosinophils/100 WBC (Bld) 2.2 % 0.9-7.0 [facility] Erythrocyte distribution wid th Auto (RBC) [Ratio]on 10-02-2023 Erythrocyte distribution width (RBC) [Ratio] 19.3 % High 11.0-15.0 [facility] Estimated glomerular filtrat ion rate (GFR) non- Americanon 10-02-2023 GFR/1.73 sq M.predicted among non-blacks MDRD (S/P/Bld) [Vol rate/Area] 41 mL/min/{1.73_m2} Low >=60 [facility] Globulin Calc (S) [Mass/Vol] on 10-02-2023 Globulin (S) [Mass/Vol] 4.2 g/dL [facility] Hematocrit Auto (Bld) [Volum e fraction]on 10-02-2023 Hematocrit (Bld) [Volume fraction] 26.1 % Low 42.0-54.0 [facility] Hemoglobin [Mass/volume] in Bloodon 10-02-2023 Hemoglobin (Bld) [Mass/Vol] 7.8 g/dL Low 14.0-18.0 [facility] Guy 10-02-2023 L Specimen: [id number] Received: 10/03/23 Status: COLTON Nath Num: [id number] Spec Type: Surgical Subm Dr: Paula Soto DPM, MS Tissues: A DIGIT AMPUTATION (FIRST METATARSAL RT FOOT) Procedures: HE/2, Gross/Micro L4, Decalcification Age/ Patient Sex Location Account Attending Physician Solomon Feldman SR 58/M LABELL [id number] Paula Soto DPM, MS SPEC NUM: [id number] RECD: 10/03/23 STATUS: COLTON YAP NUM: [id number] SHAKIRA: 10/02/[address]: Paula Soto DPM, MS ENTERED: 10/03/[address] [facility] DR: Aurelio,[place] SPEC TYPE: Surgical DEPT: [...] firm yellow- pink spongy bone matrix. A administrative representative longitudinal section is bisected and submitted following decalcification in cassettes A1?A2. Clinical history: Right diabetic foot infection CPT Codes 47483 Specimen: [id number] Received: 10/03/23 Status: COLTON Nath Num: [id number] Spec Type: Surgical Subm Dr: Paula Soto,LINDSEY, MS Tissues: A DIGIT AMPUTATION (FIRST METATARSAL RT FOOT) Procedures: HE/2, Gross/Micro L4, Decalcification Patient: Solomon Feldman SR [id number] (Continued) Signed (signature on file) Padmini Linn MD 10/05/23 2245 Normal [facility] Laboratory - Chemistry and C hemistry - challengeon 10-02-2023 Albumin [Mass/Vol] 2.1 g/dL Low 3.4-5.0 [facility] ALP [Catalytic activity/Vol] 131 U/L High 46-116 [facility] ALT [Catalytic activity/Vol] 17 U/L 16-63 [facility] AST [Catalytic activity/Vol] 13 U/L Low 15-37 [facility] Bilirubin [Mass/Vol] 0.3 mg/dL 0.2-1.0 [facility] Calcium [Mass/Vol] 6.6 mg/dL Low 8.5-10.1 [facility] Chloride [Moles/Vol] 105 mmol/L 98-107 [facility] CO2 [Moles/Vol] 24.3 mmol/L 21.0-32.0 [facility] Creatinine [Mass/Vol] 1.72 mg/dL High 0.70-1.30 [facility] GFR/1.73 sq M.predicted MDRD (S/P/Bld) [Vol rate/Area] 50 mL/min/{1.73_m2} Low >=60 [facility] Glucose [Mass/Vol] 156 mg/dL High 74-106 [facility] Magnesium [Mass/Vol] 1.5 mg/dL Low 1.8-2.4 [facility] Potassium [Moles/Vol] 4.0 mmol/L 3.5-5.1 [facility] Protein [Mass/Vol] 6.3 g/dL Low 6.4-8.2 [facility] Sodium [Moles/Vol] 139 mmol/L 136-145 [facility] Urea nitrogen [Mass/Vol] 27.0 mg/dL High 7.0-18.0 [facility] Urea nitrogen/Creatinine [Mass ratio] 15.7 mg/mg [facility] Laboratory - Hematology and Cell countson 10-02-2023 Immature granulocytes/100 WBC (Bld) 0.4 % 0.0-0.5 [facility] ESR (Bld) [Velocity] 110 mm/h High <=20 [facility] Laboratory - Microbiology an d Antimicrobial susceptibilityOrdered By: Truman Bryant on 10-02-2023 Microscopic observation Gram stain Nom (Unsp spec) [facility] Leukocytes [#/volume] correc jorge for nucleated erythrocytes in Blood by Automated counon 10-02-2023 WBC corrected for nucl RBC Auto (Bld) [#/Vol] 8.5 10 3/uL 4.0-11.0 [facility] Lymphocytes Auto (Bld) [#/Vo l]on 10-02-2023 Lymphocytes (Bld) [#/Vol] 1.5 10 3/uL 1.2-3.8 [facility] Lymphocytes/100 WBC Auto (Bl d)on 10-02-2023 Lymphocytes/100 WBC (Bld) 17.3 % Low 20.5-60.0 [facility] MCH Auto (RBC) [Entitic mass ]on 10-02-2023 MCH (RBC) [Entitic mass] 22.5 pg Low 25.9-34.0 [facility] MCHC Auto (RBC) [Mass/Vol]on 10-02-2023 MCHC (RBC) [Mass/Vol] 29.9 g/dL 29.9-35.2 [facility] MCV Auto (RBC) [Entitic vol] on 10-02-2023 MCV (RBC) [Entitic vol] 75.2 fL Low 80.0-94.0 [facility] Monocytes Auto (Bld) [#/Vol] on 10-02-2023 Monocytes (Bld) [#/Vol] 0.8 10 3/uL 0.3-0.8 [facility] Monocytes/100 WBC Auto (Bld) on 10-02-2023 Monocytes/100 WBC (Bld) 9.1 % 1.7-12.0 [facility] Neutrophils Auto (Bld) [#/Vo l]on 10-02-2023 Neutrophils (Bld) [#/Vol] 6.0 10 3/uL 1.4-6.5 [facility] Neutrophils/100 WBC Auto (Bl d)on 10-02-2023 Neutrophils/100 WBC (Bld) 70.6 % 43.0-75.0 [facility] No Panel Informationon 10-01 Eosinophils # (Auto) 0.2 10 3/uL 0.0-0.7 [facility] Immature Granulocyte # (Auto) 0.03 10 3/uL 0.00-0.03 [facility] Fungal Smear Result [facility] Miscellaneous Test Comment See comment [facility] Comment on above: Specimen Source: JONO TRT - Foot Right - Foot Rt - [id number] No Panel InformationOrdered By: Truman Bryant on 10-02-2023 Tissue Culture [facility] No Panel InformationOrdered By: Paula Soto on 10-02-2023 Acid Fast Smear [facility] AFB Specimen Processing [facility] Platelet mean volume Auto (B ld) [Entitic vol]on 10-02-2023 Platelet mean volume (Bld) [Entitic vol] 10.6 fL 9.5-13.5 [facility] Platelets Auto (Bld) [#/Vol] on 10-02-2023 Platelets (Bld) [#/Vol] 142 10 3/uL Low 150-450 [facility] RBC Auto (Bld) [#/Vol]on RBC (Bld) [#/Vol] 3.47 10 6/uL Low 4.70-6.10 [facility] Serum or plasma albumin/glob ulin mass ratioon 10-02-2023 Albumin/Globulin [Mass ratio] 0.5 {ratio} [facility] Serum or plasma anion gap de terminationon 10-02-2023 Anion gap [Moles/Vol] 13.7 [facility] Basophils Auto (Bld) [#/Vol] on 10-01-2023 Basophils (Bld) [#/Vol] 0.0 10 3/uL 0.0-0.1 [facility] Basophils/100 WBC Auto (Bld) on 10-01-2023 Basophils/100 WBC (Bld) 0.4 % 0.2-2.0 [facility] Eosinophils/100 WBC Auto (Bl d)on 10-01-2023 Eosinophils/100 WBC (Bld) 1.7 % 0.9-7.0 [facility] Erythrocyte distribution wid th Auto (RBC) [Ratio]on 10-01-2023 Erythrocyte distribution width (RBC) [Ratio] 18.5 % High 11.0-15.0 [facility] Estimated glomerular filtrat ion rate (GFR) non- Americanon 10-01-2023 GFR/1.73 sq M.predicted among non-blacks MDRD (S/P/Bld) [Vol rate/Area] 27 mL/min/{1.73_m2} Low >=60 [facility] Globulin Calc (S) [Mass/Vol] on 10-01-2023 Globulin (S) [Mass/Vol] 4.0 g/dL [facility] Hematocrit Auto (Bld) [Volum e fraction]on 10-01-2023 Hematocrit (Bld) [Volume fraction] 26.5 % Low 42.0-54.0 [facility] Hemoglobin [Mass/volume] in Bloodon 10-01-2023 Hemoglobin (Bld) [Mass/Vol] 8.0 g/dL Low 14.0-18.0 [facility] Laboratory - Chemistry and C hemistry - challengeon 10-01-2023 Lactate [Moles/Vol] 1.8 mmol/L 0.4-2.0 [facility] Albumin [Mass/Vol] 1.9 g/dL Low 3.4-5.0 [facility] ALP [Catalytic activity/Vol] 113 U/L 46-116 [facility] ALT [Catalytic activity/Vol] 17 U/L 16-63 [facility] AST [Catalytic activity/Vol] 14 U/L Low 15-37 [facility] Bilirubin [Mass/Vol] 0.3 mg/dL 0.2-1.0 [facility] Calcium [Mass/Vol] 5.7 mg/dL Low 8.5-10.1 [facility] Comment on above: RESULTS CALLED TO Patricio OlguinRN)@BY Marybel Hawkins MLT at 0619 Chloride [Moles/Vol] 102 mmol/L 98-107 [facility] CO2 [Moles/Vol] 20.4 mmol/L Low 21.0-32.0 [facility] Creatinine [Mass/Vol] 2.46 mg/dL High 0.70-1.30 [facility] GFR/1.73 sq M.predicted MDRD (S/P/Bld) [Vol rate/Area] 33 mL/min/{1.73_m2} Low >=60 [facility] Glucose [Mass/Vol] 67 mg/dL Low 74-106 [facility] Magnesium [Mass/Vol] 0.8 mg/dL Low 1.8-2.4 [facility] Comment on above: RESULTS CALLED TO Patricio CORREA)@BY [address] at 0601 Potassium [Moles/Vol] 3.1 mmol/L Low 3.5-5.1 [facility] Protein [Mass/Vol] 5.9 g/dL Low 6.4-8.2 [facility] Sodium [Moles/Vol] 138 mmol/L 136-145 [facility] Urea nitrogen [Mass/Vol] 28.0 mg/dL High 7.0-18.0 [facility] Urea nitrogen/Creatinine [Mass ratio] 11.4 mg/mg [facility] Laboratory - Hematology and Cell countson 10-01-2023 ESR (Bld) [Velocity] 96 mm/h High <=20 [facility] Immature granulocytes/100 WBC (Bld) 0.6 % High 0.0-0.5 [facility] Leukocytes [#/volume] correc jorge for nucleated erythrocytes in Blood by Automated counon 10-01-2023 WBC corrected for nucl RBC Auto (Bld) [#/Vol] 10.0 10 3/uL 4.0-11.0 [facility] Lymphocytes Auto (Bld) [#/Vo l]on 10-01-2023 Lymphocytes (Bld) [#/Vol] 1.3 10 3/uL 1.2-3.8 [facility] Lymphocytes/100 WBC Auto (Bl d)on 10-01-2023 Lymphocytes/100 WBC (Bld) 12.8 % Low 20.5-60.0 [facility] MCH Auto (RBC) [Entitic mass ]on 10-01-2023 MCH (RBC) [Entitic mass] 22.4 pg Low 25.9-34.0 [facility] MCHC Auto (RBC) [Mass/Vol]on 10-01-2023 MCHC (RBC) [Mass/Vol] 30.2 g/dL 29.9-35.2 [facility] MCV Auto (RBC) [Entitic vol] on 10-01-2023 MCV (RBC) [Entitic vol] 74.2 fL Low 80.0-94.0 [facility] Monocytes Auto (Bld) [#/Vol] on 10-01-2023 Monocytes (Bld) [#/Vol] 0.7 10 3/uL 0.3-0.8 [facility] Monocytes/100 WBC Auto (Bld) on 10-01-2023 Monocytes/100 WBC (Bld) 6.9 % 1.7-12.0 [facility] Neutrophils Auto (Bld) [#/Vo l]on 10-01-2023 Neutrophils (Bld) [#/Vol] 7.8 10 3/uL High 1.4-6.5 [facility] Neutrophils/100 WBC Auto (Bl d)on 10-01-2023 Neutrophils/100 WBC (Bld) 77.6 % High 43.0-75.0 [facility] No Panel Informationon 09-30 C-Reactive Protein, Quantitative 10.58 mg/dL High <=0.50 [facility] Eosinophils # (Auto) 0.2 10 3/uL 0.0-0.7 [facility] Immature Granulocyte # (Auto) 0.06 10 3/uL High 0.00-0.03 [facility] Troponin I High Sensitivity 8.3 pg/mL 4.0-76.1 [facility] Comment on above: CUT-OFF POINTS [...] Partial Pressure CO2 30.4 mm[Hg] Low 40.0-52.0 [facility] Venous Blood pH 7.421 7.330-7.43 0 [facility] Platelet mean volume Auto (B ld) [Entitic vol]on 10-01-2023 Platelet mean volume (Bld) [Entitic vol] 11.2 fL 9.5-13.5 [facility] Platelets Auto (Bld) [#/Vol] on 10-01-2023 Platelets (Bld) [#/Vol] 164 10 3/uL 150-450 [facility] RBC Auto (Bld) [#/Vol]on RBC (Bld) [#/Vol] 3.57 10 6/uL Low 4.70-6.10 [facility] Serum or plasma albumin/glob ulin mass ratioon 10-01-2023 Albumin/Globulin [Mass ratio] 0.5 {ratio} [facility] Serum or plasma anion gap de terminationon 10-01-2023 Anion gap [Moles/Vol] 18.7 mmol/[facility] epithelial cells c ount in urine sediment (number/area)on 09-30-2023 Epithelial cells Auto (Urine sed) [#/Area] NONE SEEN #/LPF NONE/RARE [facility] Automated leukocytes count i n urine sediment (number/area)on 09-30-2023 WBC Auto (Urine sed) [#/Area] NONE SEEN #/HPF 0-2 [facility] Automated urine specific gra vity by refractometryon 09-30-2023 Specific gravity Refractometry automated (U) [Rel density] <=1.005 Abnormal 1.005-1.02 5 [facility] Basophils Auto (Bld) [#/Vol] on 09-30-2023 Basophils (Bld) [#/Vol] 0.1 10 3/uL 0.0-0.1 [facility] Basophils/100 WBC Auto (Bld) on 09-30-2023 Basophils/100 WBC (Bld) 0.4 % 0.2-2.0 [facility] Bilirubin Auto test strip (U ) [Mass/Vol]on 09-30-2023 Bilirubin (U) [Mass/Vol] Negative NEGATIVE [facility] Casts typing in urine sedime nt by light microscopyon 09-30-2023 Casts LM Nom (Urine sed) NONE SEEN #/LPF NONE SEEN [facility] Color Auto (U)on 09-30-2023 Color (U) LT. YELLOW YELLOW [facility] Eosinophils/100 WBC Auto (Bl d)on 09-30-2023 Eosinophils/100 WBC (Bld) 1.4 % 0.9-7.0 [facility] Erythrocyte distribution wid th Auto (RBC) [Ratio]on 09-30-2023 Erythrocyte distribution width (RBC) [Ratio] 19.0 % High 11.0-15.0 [facility] Estimated glomerular filtrat ion rate (GFR) non- Americanon 09-30-2023 GFR/1.73 sq M.predicted among non-blacks MDRD (S/P/Bld) [Vol rate/Area] 19 mL/min/{1.73_m2} Low >=60 [facility] Globulin Calc (S) [Mass/Vol] on 09-30-2023 Globulin (S) [Mass/Vol] 4.8 g/dL [facility] Hematocrit Auto (Bld) [Volum e fraction]on 09-30-2023 Hematocrit (Bld) [Volume fraction] 32.9 % Low 42.0-54.0 [facility] Hemoglobin [Mass/volume] in Bloodon 09-30-2023 Hemoglobin (Bld) [Mass/Vol] 10.0 g/dL Low 14.0-18.0 [facility] INR in Platelet poor plasma by Coagulation assayon 09-30-2023 INR Coag (PPP) [Relative time] 1.23 {INR} [facility] Comment on above: DESIRED INR:2.0-3.0 CONDITIONS NOT LISTED BELOW2.5-3.5 FOR PROSTHETIC HEART VALVE REPLACEMENT2.5-3.5 RECURRENT THROMBOSIS Ketones Auto test strip (U) [Mass/Vol]on 09-30-2023 Ketones (U) [Mass/Vol] Negative NEGATIVE [facility] - Chemistry and C hemistry - challengeon 09-30-2023 Lactate [Moles/Vol] 4.2 mmol/L High 0.4-2.0 [facility] Comment on above: RESULTS CALLED TO Patricio CORREA)@BY JenniferBullinger, [employer] MANAGER at [phone] Albumin [Mass/Vol] 2.4 g/dL Low 3.4-5.0 [facility] ALP [Catalytic activity/Vol] 145 U/L High 46-116 [facility] ALT [Catalytic activity/Vol] 17 U/L 16-63 [facility] AST [Catalytic activity/Vol] 21 U/L 15-37 [facility] Bilirubin [Mass/Vol] 0.4 mg/dL 0.2-1.0 [facility] Calcium [Mass/Vol] 5.8 mg/dL Low 8.5-10.1 [facility] Comment on above: RESULTS CALLED TO AM Bartolome CASTANON @BY Verona Hanson at [phone] Chloride [Moles/Vol] 97 mmol/L Low 98-107 [facility] CO2 [Moles/Vol] 18.3 mmol/L Low 21.0-32.0 [facility] Creatinine [Mass/Vol] 3.43 mg/dL High 0.70-1.30 [facility] GFR/1.73 sq M.predicted MDRD (S/P/Bld) [Vol rate/Area] 22 mL/min/{1.73_m2} Low >=60 [facility] Glucose [Mass/Vol] 208 mg/dL High 74-106 [facility] Magnesium [Mass/Vol] 0.5 mg/dL Low 1.8-2.4 [facility] Comment on above: RESULTS CALLED TO Am bartolome Castanon @BY Marybel Hawkins, [employer] MANAGER [phone] Natriuretic peptide B (Bld) [Mass/Vol] 611.0 pg/mL <=900.0 [facility] Potassium [Moles/Vol] 3.9 mmol/L 3.5-5.1 [facility] Protein [Mass/Vol] 7.2 g/dL 6.4-8.2 [facility] Sodium [Moles/Vol] 137 mmol/L 136-145 [facility] Urea nitrogen [Mass/Vol] 34.0 mg/dL High 7.0-18.0 [facility] Urea nitrogen/Creatinine [Mass ratio] 9.9 mg/mg [facility] Laboratory - Hematology and Cell countson 09-30-2023 ESR (Bld) [Velocity] 130 mm/h High <=20 [facility] Immature granulocytes/100 WBC (Bld) 0.6 % High 0.0-0.5 [facility] Leukocytes [#/volume] correc jorge for nucleated erythrocytes in Blood by Automated counon 09-30-2023 WBC corrected for nucl RBC Auto (Bld) [#/Vol] 13.9 10 3/uL High 4.0-11.0 [facility] Lymphocytes Auto (Bld) [#/Vo l]on 09-30-2023 Lymphocytes (Bld) [#/Vol] 1.4 10 3/uL 1.2-3.8 [facility] Lymphocytes/100 WBC Auto (Bl d)on 09-30-2023 Lymphocytes/100 WBC (Bld) 10.1 % Low 20.5-60.0 [facility] MCH Auto (RBC) [Entitic mass ]on 09-30-2023 MCH (RBC) [Entitic mass] 22.7 pg Low 25.9-34.0 [facility] MCHC Auto (RBC) [Mass/Vol]on 09-30-2023 MCHC (RBC) [Mass/Vol] 30.4 g/dL 29.9-35.2 [facility] MCV Auto (RBC) [Entitic vol] on 09-30-2023 MCV (RBC) [Entitic vol] 74.6 fL Low 80.0-94.0 [facility] Monocytes Auto (Bld) [#/Vol] on 09-30-2023 Monocytes (Bld) [#/Vol] 0.9 10 3/uL High 0.3-0.8 [facility] Monocytes/100 WBC Auto (Bld) on 09-30-2023 Monocytes/100 WBC (Bld) 6.7 % 1.7-12.0 [facility] Mucus LM Ql (Urine sed)on Mucus Ql (Urine sed) NONE SEEN NONE SEEN [facility] Neutrophils Auto (Bld) [#/Vo l]on 09-30-2023 Neutrophils (Bld) [#/Vol] 11.2 10 3/uL High 1.4-6.5 [facility] Neutrophils/100 WBC Auto (Bl d)on 09-30-2023 Neutrophils/100 WBC (Bld) 80.8 % High 43.0-75.0 [facility] No Panel Informationon 09-29 Troponin I High Sensitivity 7.9 pg/mL 4.0-76.1 [facility] Comment on above: CUT-OFF POINTS [...] Partial Pressure CO2 29.6 mm[Hg] Low 40.0-52.0 [facility] Venous Blood pH 7.405 7.330-7.43 0 [facility] Urine Culture Reflexed NO [facility] C-Reactive Protein, Quantitative 14.76 mg/dL High <=0.50 [facility] Eosinophils # (Auto) 0.2 10 3/uL 0.0-0.7 [facility] Immature Granulocyte # (Auto) 0.09 10 3/uL High 0.00-0.03 [facility] No Panel InformationOrdered By: Chandrika Castanon on 09-30-2023 Blood Culture 2 [facility] Wound Culture [facility] Blood Culture 1 [facility] Platelet mean volume Auto (B ld) [Entitic vol]on 09-30-2023 Platelet mean volume (Bld) [Entitic vol] 10.9 fL 9.5-13.5 [facility] Platelets Auto (Bld) [#/Vol] on 09-30-2023 Platelets (Bld) [#/Vol] 227 10 3/uL 150-450 [facility] Protein Auto test strip (U) [Mass/Vol]on 09-30-2023 Protein (U) [Mass/Vol] Negative NEG/TRACE [facility] Prothrombin time (PT)on 09-04 PT Coag (PPP) [Time] 12.9 s High 9.0-11.6 [facility] RBC Auto (Bld) [#/Vol]on RBC (Bld) [#/Vol] 4.41 10 6/uL Low 4.70-6.10 [facility] Serum or plasma albumin/glob ulin mass ratioon 09-30-2023 Albumin/Globulin [Mass ratio] 0.5 {ratio} [facility] Serum or plasma anion gap de terminationon 09-30-2023 Anion gap [Moles/Vol] 25.6 mmol/L [facility] Specific gravity Auto test s trip (U) [Rel density]on 09-30-2023 Specific gravity (U) [Rel density] CLEAR CLEAR [facility] Urine bacteria detection by automated methodon 09-30-2023 Bacteria Auto Ql (U) NONE SEEN #/HPF NONE SEEN [facility] Urine glucose measurement by test strip (mass/volume)on 09-30-2023 Glucose Test strip (U) [Mass/Vol] 500 mg/dL Abnormal NEGATIVE [facility] Urine hemoglobin detection b y automated test stripon 09-30-2023 Hemoglobin Auto test strip Ql (U) TRACE-I NEGATIVE [facility] Urine nitrite detection by a utomated test stripon 09-30-2023 Nitrite Auto test strip Ql (U) Negative NEGATIVE [facility] Urine sediment crystal ident ification by light microscopyon 09-30-2023 Crystals LM Nom (Urine sed) None Seen #/HPF None Seen [facility] Urine sediment leukocyte cou nt by microscopy (number/high power field)on 09-30-2023 WBC LM.HPF (Urine sed) [#/Area] NONE SEEN #/HPF NONE SEEN [facility] Urobilinogen Auto test strip (U) [Mass/Vol]on 09-30-2023 Urobilinogen Qn (U) 0.2 {Brendan'U}/dL 0.2-1.0 [facility] pH Auto test strip (U)on pH (U) 5.5 [pH] 5.0-9.0 [facility] Guy 09-21-2023 L Specimen: [id number] Received: 09/21/23 Status: COTLON Nath Num: [id number] Spec Type: Surgical Subm Dr: Paula Soto DPM, MS Tissues: A Bone Fragments - Other than Path Fracture Procedures: HE, Gross/Micro L3, Decalcification Age/ Patient Sex Location Account Attending Physician FeldmanSolomon Daniel SR 58/M LABELL [id number] Paula Soto DPM, MS SPEC NUM: [id number] RECD: 09/21/23 STATUS: COLTON NATH NUM: [id number] SHAKIRA: 09/21/[address]: Paula Soto DPM, MS ENTERED: 09/21/[address] [facility] [address]: SPEC TYPE: Surgical DEPT: RAMSEY MARCANO ENTERED BY: [id number] RECV BY: [id number] ORDERED: HE, Gross/Micro L3, Decalcification ORDERED: HE, [...] excisional debridement with skin substitute. CPT Codes 76510, 65577 Specimen: [id number] Received: 09/21/23 Status: COLTON Nath Num: [id number] Spec Type: Surgical Subm Dr: Paula Soto,LINDSEY, MS Tissues: A Bone Fragments - Other than Path Fracture Procedures: HE, Gross/Micro L3, Decalcification Patient: Solomon Feldman [id number] (Continued) Signed (signature on file) Victor Hugo Sotelo MD 09/26/23 0843 Normal [facility] Laboratory - Microbiology an d Antimicrobial susceptibilityOrdered By: Jenaro Lynch on 09-21-2023 Microscopic observation Gram stain Nom (Unsp spec) [facility] Activated partial thrombopla stin time (aPTT) in platelet poor plasma by coagulation aon 09-18-2023 aPTT Coag (PPP) [Time] 32.0 s 22.3-36.2 [facility] Basophils Auto (Bld) [#/Vol] on 09-18-2023 Basophils (Bld) [#/Vol] 0.1 10 3/uL 0.0-0.1 [facility] Basophils/100 WBC Auto (Bld) on 09-18-2023 Basophils/100 WBC (Bld) 0.9 % 0.2-2.0 [facility] Eosinophils/100 WBC Auto (Bl d)on 09-18-2023 Eosinophils/100 WBC (Bld) 2.3 % 0.9-7.0 [facility] Erythrocyte distribution wid th Auto (RBC) [Ratio]on 09-18-2023 Erythrocyte distribution width (RBC) [Ratio] 18.8 % High 11.0-15.0 [facility] Estimated glomerular filtrat ion rate (GFR) non- Americanon 09-18-2023 GFR/1.73 sq M.predicted among non-blacks MDRD (S/P/Bld) [Vol rate/Area] 27 mL/min/{1.73_m2} Low >=60 [facility] Hematocrit Auto (Bld) [Volum e fraction]on 09-18-2023 Hematocrit (Bld) [Volume fraction] 35.0 % Low 42.0-54.0 [facility] Hemoglobin [Mass/volume] in Bloodon 09-18-2023 Hemoglobin (Bld) [Mass/Vol] 10.3 g/dL Low 14.0-18.0 [facility] INR in Platelet poor plasma by Coagulation assayon 09-18-2023 INR Coag (PPP) [Relative time] 1.08 {INR} [facility] Comment on above: DESIRED INR:2.0-3.0 CONDITIONS NOT LISTED BELOW2.5-3.5 FOR PROSTHETIC HEART VALVE REPLACEMENT2.5-3.5 RECURRENT THROMBOSIS Laboratory - Chemistry and C hemistry - challengeon 09-18-2023 Calcium [Mass/Vol] 8.9 mg/dL 8.5-10.1 [facility] Chloride [Moles/Vol] 97 mmol/L Low 98-107 [facility] CO2 [Moles/Vol] 28.2 mmol/L 21.0-32.0 [facility] Creatinine [Mass/Vol] 2.47 mg/dL High 0.70-1.30 [facility] GFR/1.73 sq M.predicted MDRD (S/P/Bld) [Vol rate/Area] 33 mL/min/{1.73_m2} Low >=60 [facility] Glucose [Mass/Vol] 200 mg/dL High 74-106 [facility] Potassium [Moles/Vol] 3.7 mmol/L 3.5-5.1 [facility] Sodium [Moles/Vol] 137 mmol/L 136-145 [facility] Urea nitrogen [Mass/Vol] 23.0 mg/dL High 7.0-18.0 [facility] Urea nitrogen/Creatinine [Mass ratio] 9.3 mg/mg [facility] Laboratory - Hematology and Cell countson 09-18-2023 Immature granulocytes/100 WBC (Bld) 0.6 % High 0.0-0.5 [facility] Leukocytes [#/volume] correc jorge for nucleated erythrocytes in Blood by Automated counon 09-18-2023 WBC corrected for nucl RBC Auto (Bld) [#/Vol] 12.4 10 3/uL High 4.0-11.0 [facility] Lymphocytes Auto (Bld) [#/Vo l]on 09-18-2023 Lymphocytes (Bld) [#/Vol] 2.4 10 3/uL 1.2-3.8 [facility] Lymphocytes/100 WBC Auto (Bl d)on 09-18-2023 Lymphocytes/100 WBC (Bld) 19.6 % Low 20.5-60.0 [facility] MCH Auto (RBC) [Entitic mass ]on 09-18-2023 MCH (RBC) [Entitic mass] 22.2 pg Low 25.9-34.0 [facility] MCHC Auto (RBC) [Mass/Vol]on 09-18-2023 MCHC (RBC) [Mass/Vol] 29.4 g/dL Low 29.9-35.2 [facility] MCV Auto (RBC) [Entitic vol] on 09-18-2023 MCV (RBC) [Entitic vol] 75.3 fL Low 80.0-94.0 [facility] Monocytes Auto (Bld) [#/Vol] on 09-18-2023 Monocytes (Bld) [#/Vol] 1.2 10 3/uL High 0.3-0.8 [facility] Monocytes/100 WBC Auto (Bld) on 09-18-2023 Monocytes/100 WBC (Bld) 10.0 % 1.7-12.0 [facility] Neutrophils Auto (Bld) [#/Vo l]on 09-18-2023 Neutrophils (Bld) [#/Vol] 8.2 10 3/uL High 1.4-6.5 [facility] Neutrophils/100 WBC Auto (Bl d)on 09-18-2023 Neutrophils/100 WBC (Bld) 66.6 % 43.0-75.0 [facility] No Panel Informationon 09-17 Eosinophils # (Auto) 0.3 10 3/uL 0.0-0.7 [facility] Immature Granulocyte # (Auto) 0.07 10 3/uL High 0.00-0.03 [facility] Platelet mean volume Auto (B ld) [Entitic vol]on 09-18-2023 Platelet mean volume (Bld) [Entitic vol] 10.9 fL 9.5-13.5 [facility] Platelets Auto (Bld) [#/Vol] on 09-18-2023 Platelets (Bld) [#/Vol] 300 10 3/uL 150-450 [facility] Prothrombin time (PT)on 09-03 PT Coag (PPP) [Time] 11.4 s 9.0-11.6 [facility] RBC Auto (Bld) [#/Vol]on RBC (Bld) [#/Vol] 4.65 10 6/uL Low 4.70-6.10 [facility] Serum or plasma anion gap de terminationon 09-18-2023 Anion gap [Moles/Vol] 15.5 mmol/L [facility] Laboratory - Microbiology an d Antimicrobial susceptibilityOrdered By: Jenaro Lynch on 08-10-2023 Microscopic observation Gram stain Nom (Unsp spec) [facility] No Panel Informationon 08-09 Fungal Smear Result [facility] Miscellaneous Test Comment See comment [facility] Comment on above: Specimen Source: JONO TRT - Foot Right - Foot Rt - 604.000 No Panel InformationOrdered By: Jenaro Lynch on 08-10-2023 Acid Fast Culture [facility] Acid Fast Smear [facility] AFB Specimen Processing [facility] Tissue Culture [facility] Basophils Auto (Bld) [#/Vol] on 08-07-2023 Basophils (Bld) [#/Vol] 0.1 10 3/uL 0.0-0.1 [facility] Basophils/100 WBC Auto (Bld) on 08-07-2023 Basophils/100 WBC (Bld) 0.7 % 0.2-2.0 [facility] Eosinophils/100 WBC Auto (Bl d)on 08-07-2023 Eosinophils/100 WBC (Bld) 3.9 % 0.9-7.0 [facility] Erythrocyte distribution wid th Auto (RBC) [Ratio]on 08-07-2023 Erythrocyte distribution width (RBC) [Ratio] 16.9 % 11.0-15.0 [facility] Estimated glomerular filtrat ion rate (GFR) non- Americanon 08-07-2023 GFR/1.73 sq M.predicted among non-blacks MDRD (S/P/Bld) [Vol rate/Area] 42 mL/min/{1.73_m2} >=60 [facility] Globulin Calc (S) [Mass/Vol] on 08-07-2023 Globulin (S) [Mass/Vol] 4.0 g/dL [facility] Hematocrit Auto (Bld) [Volum e fraction]on 08-07-2023 Hematocrit (Bld) [Volume fraction] 31.5 % 42.0-54.0 [facility] Hemoglobin [Mass/volume] in Bloodon 08-07-2023 Hemoglobin (Bld) [Mass/Vol] 9.4 g/dL 14.0-18.0 [facility] Laboratory - Chemistry and C hemistry - challengeon 08-07-2023 Albumin [Mass/Vol] 2.1 g/dL 3.4-5.0 [facility] ALP [Catalytic activity/Vol] 144 U/L 46-116 [facility] ALT [Catalytic activity/Vol] 21 U/L 16-63 [facility] AST [Catalytic activity/Vol] 25 U/L 15-37 [facility] Bilirubin [Mass/Vol] 0.4 mg/dL 0.2-1.0 [facility] Calcium [Mass/Vol] 8.1 mg/dL 8.5-10.1 [facility] Chloride [Moles/Vol] 102 mmol/L 98-107 [facility] CO2 [Moles/Vol] 24.7 mmol/L 21.0-32.0 [facility] Creatinine [Mass/Vol] 1.70 mg/dL 0.70-1.30 [facility] GFR/1.73 sq M.predicted MDRD (S/P/Bld) [Vol rate/Area] 50 mL/min/{1.73_m2} >=60 [facility] Glucose [Mass/Vol] 188 mg/dL 74-106 [facility] Potassium [Moles/Vol] 4.6 mmol/L 3.5-5.1 [facility] Protein [Mass/Vol] 6.1 g/dL 6.4-8.2 [facility] Sodium [Moles/Vol] 135 mmol/L 136-145 [facility] Urea nitrogen [Mass/Vol] 33.0 mg/dL 7.0-18.0 [facility] Urea nitrogen/Creatinine [Mass ratio] 19.4 mg/mg [facility] Laboratory - Hematology and Cell countson 08-07-2023 Immature granulocytes/100 WBC (Bld) 0.7 % 0.0-0.5 [facility] Leukocytes [#/volume] correc jorge for nucleated erythrocytes in Blood by Automated counon 08-07-2023 WBC corrected for nucl RBC Auto (Bld) [#/Vol] 12.0 10 3/uL 4.0-11.0 [facility] Lymphocytes Auto (Bld) [#/Vo l]on 08-07-2023 Lymphocytes (Bld) [#/Vol] 1.5 10 3/uL 1.2-3.8 [facility] Lymphocytes/100 WBC Auto (Bl d)on 08-07-2023 Lymphocytes/100 WBC (Bld) 12.4 % 20.5-60.0 [facility] MCH Auto (RBC) [Entitic mass ]on 08-07-2023 MCH (RBC) [Entitic mass] 22.5 pg 25.9-34.0 [facility] MCHC Auto (RBC) [Mass/Vol]on 08-07-2023 MCHC (RBC) [Mass/Vol] 29.8 g/dL 29.9-35.2 [facility] MCV Auto (RBC) [Entitic vol] on 08-07-2023 MCV (RBC) [Entitic vol] 75.4 fL 80.0-94.0 [facility] Monocytes Auto (Bld) [#/Vol] on 08-07-2023 Monocytes (Bld) [#/Vol] 1.2 10 3/uL 0.3-0.8 [facility] Monocytes/100 WBC Auto (Bld) on 08-07-2023 Monocytes/100 WBC (Bld) 10.1 % 1.7-12.0 [facility] Neutrophils Auto (Bld) [#/Vo l]on 08-07-2023 Neutrophils (Bld) [#/Vol] 8.7 10 3/uL 1.4-6.5 [facility] Neutrophils/100 WBC Auto (Bl d)on 08-07-2023 Neutrophils/100 WBC (Bld) 72.2 % 43.0-75.0 [facility] No Panel Informationon 08-06 Eosinophils # (Auto) 0.5 10 3/uL 0.0-0.7 [facility] Immature Granulocyte # (Auto) 0.09 10 3/uL 0.00-0.03 [facility] Platelet mean volume Auto (B ld) [Entitic vol]on 08-07-2023 Platelet mean volume (Bld) [Entitic vol] 11.7 fL 9.5-13.5 [facility] Platelets Auto (Bld) [#/Vol] on 08-07-2023 Platelets (Bld) [#/Vol] 222 10 3/uL 150-450 [facility] RBC Auto (Bld) [#/Vol]on RBC (Bld) [#/Vol] 4.18 10 6/uL 4.70-6.10 [facility] Serum or plasma albumin/glob ulin mass ratioon 08-07-2023 Albumin/Globulin [Mass ratio] 0.5 {ratio} [facility] Serum or plasma anion gap de terminationon 08-07-2023 Anion gap [Moles/Vol] 12.9 [facility] Basophils Auto (Bld) [#/Vol] on 08-06-2023 Basophils (Bld) [#/Vol] 0.1 10 3/uL 0.0-0.1 [facility] Basophils/100 WBC Auto (Bld) on 08-06-2023 Basophils/100 WBC (Bld) 0.7 % 0.2-2.0 [facility] Eosinophils/100 WBC Auto (Bl d)on 08-06-2023 Eosinophils/100 WBC (Bld) 3.3 % 0.9-7.0 [facility] Erythrocyte distribution wid th Auto (RBC) [Ratio]on 08-06-2023 Erythrocyte distribution width (RBC) [Ratio] 17.0 % 11.0-15.0 [facility] Estimated glomerular filtrat ion rate (GFR) non- Americanon 08-06-2023 GFR/1.73 sq M.predicted among non-blacks MDRD (S/P/Bld) [Vol rate/Area] 36 mL/min/{1.73_m2} >=60 [facility] Globulin Calc (S) [Mass/Vol] on 08-06-2023 Globulin (S) [Mass/Vol] 4.0 g/dL [facility] Hematocrit Auto (Bld) [Volum e fraction]on 08-06-2023 Hematocrit (Bld) [Volume fraction] 30.1 % 42.0-54.0 [facility] Hemoglobin [Mass/volume] in Bloodon 08-06-2023 Hemoglobin (Bld) [Mass/Vol] 8.8 g/dL 14.0-18.0 [facility] Laboratory - Chemistry and C hemistry - challengeon 08-06-2023 Albumin [Mass/Vol] 2.0 g/dL 3.4-5.0 [facility] ALP [Catalytic activity/Vol] 127 U/L 46-116 [facility] ALT [Catalytic activity/Vol] 14 U/L 16-63 [facility] AST [Catalytic activity/Vol] 16 U/L 15-37 [facility] Bilirubin [Mass/Vol] 0.4 mg/dL 0.2-1.0 [facility] Calcium [Mass/Vol] 7.9 mg/dL 8.5-10.1 [facility] Chloride [Moles/Vol] 99 mmol/L 98-107 [facility] CO2 [Moles/Vol] 25.0 mmol/L 21.0-32.0 [facility] Creatinine [Mass/Vol] 1.95 mg/dL 0.70-1.30 [facility] GFR/1.73 sq M.predicted MDRD (S/P/Bld) [Vol rate/Area] 43 mL/min/{1.73_m2} >=60 [facility] Glucose [Mass/Vol] 297 mg/dL 74-106 [facility] Potassium [Moles/Vol] 4.4 mmol/L 3.5-5.1 [facility] Protein [Mass/Vol] 6.0 g/dL 6.4-8.2 [facility] Sodium [Moles/Vol] 133 mmol/L 136-145 [facility] Urea nitrogen [Mass/Vol] 28.0 mg/dL 7.0-18.0 [facility] Urea nitrogen/Creatinine [Mass ratio] 14.4 mg/mg [facility] Laboratory - Hematology and Cell countson 08-06-2023 Immature granulocytes/100 WBC (Bld) 0.4 % 0.0-0.5 [facility] Leukocytes [#/volume] correc jorge for nucleated erythrocytes in Blood by Automated counon 08-06-2023 WBC corrected for nucl RBC Auto (Bld) [#/Vol] 10.1 10 3/uL 4.0-11.0 [facility] Lymphocytes Auto (Bld) [#/Vo l]on 08-06-2023 Lymphocytes (Bld) [#/Vol] 1.5 10 3/uL 1.2-3.8 [facility] Lymphocytes/100 WBC Auto (Bl d)on 08-06-2023 Lymphocytes/100 WBC (Bld) 14.4 % 20.5-60.0 [facility] MCH Auto (RBC) [Entitic mass ]on 08-06-2023 MCH (RBC) [Entitic mass] 22.5 pg 25.9-34.0 [facility] MCHC Auto (RBC) [Mass/Vol]on 08-06-2023 MCHC (RBC) [Mass/Vol] 29.2 g/dL 29.9-35.2 [facility] MCV Auto (RBC) [Entitic vol] on 08-06-2023 MCV (RBC) [Entitic vol] 77.0 fL 80.0-94.0 [facility] Monocytes Auto (Bld) [#/Vol] on 08-06-2023 Monocytes (Bld) [#/Vol] 1.1 10 3/uL 0.3-0.8 [facility] Monocytes/100 WBC Auto (Bld) on 08-06-2023 Monocytes/100 WBC (Bld) 10.4 % 1.7-12.0 [facility] Neutrophils Auto (Bld) [#/Vo l]on 08-06-2023 Neutrophils (Bld) [#/Vol] 7.2 10 3/uL 1.4-6.5 [facility] Neutrophils/100 WBC Auto (Bl d)on 08-06-2023 Neutrophils/100 WBC (Bld) 70.8 % 43.0-75.0 [facility] No Panel Informationon 08-05 Vancomycin Level Trough 13.6 ug/mL 5.0-20.0 [facility] Eosinophils # (Auto) 0.3 10 3/uL 0.0-0.7 [facility] Immature Granulocyte # (Auto) 0.04 10 3/uL 0.00-0.03 [facility] Platelet mean volume Auto (B ld) [Entitic vol]on 08-06-2023 Platelet mean volume (Bld) [Entitic vol] 12.2 fL 9.5-13.5 [facility] Platelets Auto (Bld) [#/Vol] on 08-06-2023 Platelets (Bld) [#/Vol] 190 10 3/uL 150-450 [facility] RBC Auto (Bld) [#/Vol]on RBC (Bld) [#/Vol] 3.91 10 6/uL 4.70-6.10 [facility] Serum or plasma albumin/glob ulin mass ratioon 08-06-2023 Albumin/Globulin [Mass ratio] 0.5 {ratio} [facility] Serum or plasma anion gap de terminationon 08-06-2023 Anion gap [Moles/Vol] 13.4 [facility] Automated epithelial cells c ount in urine sediment (number/area)on 08-05-2023 Epithelial cells Auto (Urine sed) [#/Area] RARE #/LPF NONE/RARE [facility] Automated leukocytes count i n urine sediment (number/area)on 08-05-2023 WBC Auto (Urine sed) [#/Area] NONE SEEN #/HPF 0-2 [facility] Automated urine specific gra vity by refractometryon 08-05-2023 Specific gravity Refractometry automated (U) [Rel density] <=1.005 1.005-1.02 5 [facility] Basophils Auto (Bld) [#/Vol] on 08-05-2023 Basophils (Bld) [#/Vol] 0.1 10 3/uL 0.0-0.1 [facility] Basophils/100 WBC Auto (Bld) on 08-05-2023 Basophils/100 WBC (Bld) 0.7 % 0.2-2.0 [facility] Bilirubin Auto test strip (U ) [Mass/Vol]on 08-05-2023 Bilirubin (U) [Mass/Vol] Negative NEGATIVE [facility] Casts typing in urine sedime nt by light microscopyon 08-05-2023 Casts LM Nom (Urine sed) NONE SEEN #/LPF NONE SEEN [facility] Color Auto (U)on 08-05-2023 Color (U) LT. YELLOW YELLOW [facility] Eosinophils/100 WBC Auto (Bl d)on 08-05-2023 Eosinophils/100 WBC (Bld) 2.5 % 0.9-7.0 [facility] Erythrocyte distribution wid th Auto (RBC) [Ratio]on 08-05-2023 Erythrocyte distribution width (RBC) [Ratio] 16.8 % 11.0-15.0 [facility] Estimated glomerular filtrat ion rate (GFR) non- Americanon 08-05-2023 GFR/1.73 sq M.predicted among non-blacks MDRD (S/P/Bld) [Vol rate/Area] 42 mL/min/{1.73_m2} >=60 [facility] Globulin Calc (S) [Mass/Vol] on 08-05-2023 Globulin (S) [Mass/Vol] 4.1 g/dL [facility] Glucose mean value [Mass/vol ume] in Blood Estimated from glycated hemoglobinon 08-05-2023 Average glucose Estimated from glycated hemoglobin (Bld) [Mass/Vol] 214 mg/dL [facility] Hematocrit Auto (Bld) [Volum e fraction]on 08-05-2023 Hematocrit (Bld) [Volume fraction] 31.8 % 42.0-54.0 [facility] Hemoglobin [Mass/volume] in Bloodon 08-05-2023 Hemoglobin (Bld) [Mass/Vol] 9.4 g/dL 14.0-18.0 [facility] Ketones Auto test strip (U) [Mass/Vol]on 08-05-2023 Ketones (U) [Mass/Vol] Negative NEGATIVE [facility] Laboratory - Chemistry and C hemistry - challengeon 08-05-2023 Albumin [Mass/Vol] 2.3 g/dL 3.4-5.0 [facility] ALP [Catalytic activity/Vol] 111 U/L 46-116 [facility] ALT [Catalytic activity/Vol] 11 U/L 16-63 [facility] AST [Catalytic activity/Vol] 11 U/L 15-37 [facility] Bilirubin [Mass/Vol] 0.5 mg/dL 0.2-1.0 [facility] Calcium [Mass/Vol] 8.1 mg/dL 8.5-10.1 [facility] Chloride [Moles/Vol] 101 mmol/L 98-107 [facility] CO2 [Moles/Vol] 25.6 mmol/L 21.0-32.0 [facility] Creatinine [Mass/Vol] 1.68 mg/dL 0.70-1.30 [facility] GFR/1.73 sq M.predicted MDRD (S/P/Bld) [Vol rate/Area] 51 mL/min/{1.73_m2} >=60 [facility] Glucose [Mass/Vol] 111 mg/dL 74-106 [facility] Potassium [Moles/Vol] 3.7 mmol/L 3.5-5.1 [facility] Protein [Mass/Vol] 6.4 g/dL 6.4-8.2 [facility] Sodium [Moles/Vol] 138 mmol/L 136-145 [facility] Urea nitrogen [Mass/Vol] 17.0 mg/dL 7.0-18.0 [facility] Urea nitrogen/Creatinine [Mass ratio] 10.1 mg/mg [facility] Laboratory - Hematology and Cell countson 08-05-2023 HbA1c (Bld) [Mass fraction] 9.1 % 4.5-6.2 [facility] Comment on above: ADA RECOMMENDED LIMI T 4.0 - 6.0ADA THERAPEUTIC TARGET < 7.0ACTION SUGGESTED> 7.0 Immature granulocytes/100 WBC (Bld) 0.4 % 0.0-0.5 [facility] Laboratory - Microbiology an d Antimicrobial susceptibilityOrdered By: Jenaro Lynch on 08-05-2023 Microscopic observation Gram stain Nom (Unsp spec) [facility] Leukocytes [#/volume] correc jorge for nucleated erythrocytes in Blood by Automated counon 08-05-2023 WBC corrected for nucl RBC Auto (Bld) [#/Vol] 12.3 10 3/uL 4.0-11.0 [facility] Lymphocytes Auto (Bld) [#/Vo l]on 08-05-2023 Lymphocytes (Bld) [#/Vol] 1.5 10 3/uL 1.2-3.8 [facility] Lymphocytes/100 WBC Auto (Bl d)on 08-05-2023 Lymphocytes/100 WBC (Bld) 11.8 % 20.5-60.0 [facility] MCH Auto (RBC) [Entitic mass ]on 08-05-2023 MCH (RBC) [Entitic mass] 22.4 pg 25.9-34.0 [facility] MCHC Auto (RBC) [Mass/Vol]on 08-05-2023 MCHC (RBC) [Mass/Vol] 29.6 g/dL 29.9-35.2 [facility] MCV Auto (RBC) [Entitic vol] on 08-05-2023 MCV (RBC) [Entitic vol] 75.9 fL 80.0-94.0 [facility] Monocytes Auto (Bld) [#/Vol] on 08-05-2023 Monocytes (Bld) [#/Vol] 1.3 10 3/uL 0.3-0.8 [facility] Monocytes/100 WBC Auto (Bld) on 08-05-2023 Monocytes/100 WBC (Bld) 10.7 % 1.7-12.0 [facility] Mucus LM Ql (Urine sed)on Mucus Ql (Urine sed) NONE SEEN NONE SEEN [facility] Neutrophils Auto (Bld) [#/Vo l]on 08-05-2023 Neutrophils (Bld) [#/Vol] 9.1 10 3/uL 1.4-6.5 [facility] Neutrophils/100 WBC Auto (Bl d)on 08-05-2023 Neutrophils/100 WBC (Bld) 73.9 % 43.0-75.0 [facility] No Panel Informationon 08-04 Eosinophils # (Auto) 0.3 10 3/uL 0.0-0.7 [facility] Immature Granulocyte # (Auto) 0.05 10 3/uL 0.00-0.03 [facility] Platelet mean volume Auto (B ld) [Entitic vol]on 08-05-2023 Platelet mean volume (Bld) [Entitic vol] 11.2 fL 9.5-13.5 [facility] Platelets Auto (Bld) [#/Vol] on 08-05-2023 Platelets (Bld) [#/Vol] 184 10 3/uL 150-450 [facility] Protein Auto test strip (U) [Mass/Vol]on 08-05-2023 Protein (U) [Mass/Vol] Negative NEG/TRACE [facility] RBC Auto (Bld) [#/Vol]on RBC (Bld) [#/Vol] 4.19 10 6/uL 4.70-6.10 [facility] Serum or plasma albumin/glob ulin mass ratioon 08-05-2023 Albumin/Globulin [Mass ratio] 0.6 {ratio} [facility] Serum or plasma anion gap de terminationon 08-05-2023 Anion gap [Moles/Vol] 15.1 mmol/L [facility] Specific gravity Auto test s trip (U) [Rel density]on 08-05-2023 Specific gravity (U) [Rel density] CLEAR CLEAR [facility] Urine bacteria detection by automated methodon 08-05-2023 Bacteria Auto Ql (U) TRACE #/HPF NONE SEEN [facility] Urine glucose measurement by test strip (mass/volume)on 08-05-2023 Glucose Test strip (U) [Mass/Vol] >=1000 mg/dL NEGATIVE [facility] Urine hemoglobin detection b y automated test stripon 08-05-2023 Hemoglobin Auto test strip Ql (U) Negative NEGATIVE [facility] Urine nitrite detection by a utomated test stripon 08-05-2023 Nitrite Auto test strip Ql (U) Negative NEGATIVE [facility] Urine sediment crystal ident ification by light microscopyon 08-05-2023 Crystals LM Nom (Urine sed) None Seen #/HPF None Seen [facility] Urine sediment leukocyte cou nt by microscopy (number/high power field)on 08-05-2023 WBC LM.HPF (Urine sed) [#/Area] NONE SEEN #/HPF NONE SEEN [facility] Urobilinogen Auto test strip (U) [Mass/Vol]on 08-05-2023 Urobilinogen Qn (U) 0.2 {Brendan'U}/dL 0.2-1.0 [facility] pH Auto test strip (U)on pH (U) 6.0 [pH] 5.0-9.0 [facility] Basophils Auto (Bld) [#/Vol] on 08-04-2023 Basophils (Bld) [#/Vol] 0.1 10 3/uL 0.0-0.1 [facility] Basophils/100 WBC Auto (Bld) on 08-04-2023 Basophils/100 WBC (Bld) 0.8 % 0.2-2.0 [facility] Eosinophils/100 WBC Auto (Bl d)on 08-04-2023 Eosinophils/100 WBC (Bld) 2.8 % 0.9-7.0 [facility] Erythrocyte distribution wid th Auto (RBC) [Ratio]on 08-04-2023 Erythrocyte distribution width (RBC) [Ratio] 16.9 % 11.0-15.0 [facility] Estimated glomerular filtrat ion rate (GFR) non- Americanon 08-04-2023 GFR/1.73 sq M.predicted among non-blacks MDRD (S/P/Bld) [Vol rate/Area] 33 mL/min/{1.73_m2} >=60 [facility] Globulin Calc (S) [Mass/Vol] on 08-04-2023 Globulin (S) [Mass/Vol] 4.4 g/dL [facility] Hematocrit Auto (Bld) [Volum e fraction]on 08-04-2023 Hematocrit (Bld) [Volume fraction] 32.6 % 42.0-54.0 [facility] Hemoglobin [Mass/volume] in Bloodon 08-04-2023 Hemoglobin (Bld) [Mass/Vol] 9.6 g/dL 14.0-18.0 [facility] INR in Platelet poor plasma by Coagulation assayon 08-04-2023 INR Coag (PPP) [Relative time] 1.05 {INR} [facility] Comment on above: DESIRED INR:2.0-3.0 CONDITIONS NOT LISTED BELOW2.5-3.5 FOR PROSTHETIC HEART VALVE REPLACEMENT2.5-3.5 RECURRENT THROMBOSIS Laboratory - Chemistry and C hemistry - challengeon 08-04-2023 Albumin [Mass/Vol] 2.4 g/dL 3.4-5.0 [facility] ALP [Catalytic activity/Vol] 109 U/L 46-116 [facility] ALT [Catalytic activity/Vol] 9 U/L 16-63 [facility] AST [Catalytic activity/Vol] U/L 15-37 [facility] Bilirubin [Mass/Vol] 0.4 mg/dL 0.2-1.0 [facility] Calcium [Mass/Vol] 8.0 mg/dL 8.5-10.1 [facility] Chloride [Moles/Vol] 96 mmol/L 98-107 [facility] CO2 [Moles/Vol] 29.2 mmol/L 21.0-32.0 [facility] Creatinine [Mass/Vol] 2.06 mg/dL 0.70-1.30 [facility] GFR/1.73 sq M.predicted MDRD (S/P/Bld) [Vol rate/Area] 40 mL/min/{1.73_m2} >=60 [facility] Glucose [Mass/Vol] 329 mg/dL 74-106 [facility] Potassium [Moles/Vol] 3.5 mmol/L 3.5-5.1 [facility] Protein [Mass/Vol] 6.8 g/dL 6.4-8.2 [facility] Sodium [Moles/Vol] 132 mmol/L 136-145 [facility] Urea nitrogen [Mass/Vol] 20.0 mg/dL 7.0-18.0 [facility] Urea nitrogen/Creatinine [Mass ratio] 9.7 mg/mg [facility] Laboratory - Hematology and Cell countson 08-04-2023 ESR (Bld) [Velocity] 89 mm/h <=20 [facility] Immature granulocytes/100 WBC (Bld) 0.3 % 0.0-0.5 [facility] Laboratory - Microbiology an d Antimicrobial susceptibilityOrdered By: Jenaro Lynch on 08-04-2023 Microscopic observation Gram stain Nom (Unsp spec) [facility] Leukocytes [#/volume] correc jorge for nucleated erythrocytes in Blood by Automated counon 08-04-2023 WBC corrected for nucl RBC Auto (Bld) [#/Vol] 11.6 10 3/uL 4.0-11.0 [facility] Lymphocytes Auto (Bld) [#/Vo l]on 08-04-2023 Lymphocytes (Bld) [#/Vol] 1.7 10 3/uL 1.2-3.8 [facility] Lymphocytes/100 WBC Auto (Bl d)on 08-04-2023 Lymphocytes/100 WBC (Bld) 14.9 % 20.5-60.0 [facility] MCH Auto (RBC) [Entitic mass ]on 08-04-2023 MCH (RBC) [Entitic mass] 22.3 pg 25.9-34.0 [facility] MCHC Auto (RBC) [Mass/Vol]on 08-04-2023 MCHC (RBC) [Mass/Vol] 29.4 g/dL 29.9-35.2 [facility] MCV Auto (RBC) [Entitic vol] on 08-04-2023 MCV (RBC) [Entitic vol] 75.8 fL 80.0-94.0 [facility] Monocytes Auto (Bld) [#/Vol] on 08-04-2023 Monocytes (Bld) [#/Vol] 1.2 10 3/uL 0.3-0.8 [facility] Monocytes/100 WBC Auto (Bld) on 08-04-2023 Monocytes/100 WBC (Bld) 10.4 % 1.7-12.0 [facility] Neutrophils Auto (Bld) [#/Vo l]on 08-04-2023 Neutrophils (Bld) [#/Vol] 8.2 10 3/uL 1.4-6.5 [facility] Neutrophils/100 WBC Auto (Bl d)on 08-04-2023 Neutrophils/100 WBC (Bld) 70.8 % 43.0-75.0 [facility] No Panel InformationOrdered By: Jenaro Lynch on 08-04-2023 Blood Culture 2 [facility] Blood Culture 1 [facility] Wound Culture [facility] No Panel Informationon 08-03 Aerobic & Anaerobic Susceptibility [facility] Miscellaneous Test Comment See comment [facility] Comment on above: Specimen Source: JONO T - Foot - Foot - 603.950 C-Reactive Protein, Quantitative 11.62 mg/dL <=0.50 [facility] Eosinophils # (Auto) 0.3 10 3/uL 0.0-0.7 [facility] Immature Granulocyte # (Auto) 0.04 10 3/uL 0.00-0.03 [facility] Platelet mean volume Auto (B ld) [Entitic vol]on 08-04-2023 Platelet mean volume (Bld) [Entitic vol] 11.5 fL 9.5-13.5 [facility] Platelets Auto (Bld) [#/Vol] on 08-04-2023 Platelets (Bld) [#/Vol] 206 10 3/uL 150-450 [facility] Prothrombin time (PT)on PT Coag (PPP) [Time] 11.1 s 9.0-11.6 [facility] RBC Auto (Bld) [#/Vol]on RBC (Bld) [#/Vol] 4.30 10 6/uL 4.70-6.10 [facility] Serum or plasma albumin/glob ulin mass ratioon 08-04-2023 Albumin/Globulin [Mass ratio] 0.5 {ratio} [facility] Serum or plasma anion gap de terminationon 08-04-2023 Anion gap [Moles/Vol] 10.3 [facility] Serum procalcitonin measurem enton 08-04-2023 Procalcitonin [Mass/Vol] 0.10 ng/mL 0.00-0.50 [facility] Basophils Auto (Bld) [#/Vol] on 08-03-2023 Basophils (Bld) [#/Vol] 0.1 10 3/uL 0.0-0.1 [facility] Basophils/100 WBC Auto (Bld) on 08-03-2023 Basophils/100 WBC (Bld) 0.7 % 0.2-2.0 [facility] Eosinophils/100 WBC Auto (Bl d)on 08-03-2023 Eosinophils/100 WBC (Bld) 1.8 % 0.9-7.0 [facility] Erythrocyte distribution wid th Auto (RBC) [Ratio]on 08-03-2023 Erythrocyte distribution width (RBC) [Ratio] 17.0 % 11.0-15.0 [facility] Estimated glomerular filtrat ion rate (GFR) non- Americanon 08-03-2023 GFR/1.73 sq M.predicted among non-blacks MDRD (S/P/Bld) [Vol rate/Area] 27 mL/min/{1.73_m2} >=60 [facility] Globulin Calc (S) [Mass/Vol] on 08-03-2023 Globulin (S) [Mass/Vol] 5.0 g/dL [facility] Hematocrit Auto (Bld) [Volum e fraction]on 08-03-2023 Hematocrit (Bld) [Volume fraction] 38.9 % 42.0-54.0 [facility] Hemoglobin [Mass/volume] in Bloodon 08-03-2023 Hemoglobin (Bld) [Mass/Vol] 11.8 g/dL 14.0-18.0 [facility] Laboratory - Chemistry and C hemistry - challengeon 08-03-2023 Lactate [Moles/Vol] 1.6 mmol/L 0.4-2.0 [facility] Albumin [Mass/Vol] 3.3 g/dL 3.4-5.0 [facility] ALP [Catalytic activity/Vol] 134 U/L 46-116 [facility] ALT [Catalytic activity/Vol] 13 U/L 16-63 [facility] AST [Catalytic activity/Vol] U/L 15-37 [facility] Bilirubin [Mass/Vol] 0.6 mg/dL 0.2-1.0 [facility] Calcium [Mass/Vol] 9.3 mg/dL 8.5-10.1 [facility] Chloride [Moles/Vol] 92 mmol/L 98-107 [facility] CO2 [Moles/Vol] 31.0 mmol/L 21.0-32.0 [facility] Creatinine [Mass/Vol] 2.45 mg/dL 0.70-1.30 [facility] GFR/1.73 sq M.predicted MDRD (S/P/Bld) [Vol rate/Area] 33 mL/min/{1.73_m2} >=60 [facility] Glucose [Mass/Vol] 310 mg/dL 74-106 [facility] Potassium [Moles/Vol] 3.7 mmol/L 3.5-5.1 [facility] Protein [Mass/Vol] 8.3 g/dL 6.4-8.2 [facility] Sodium [Moles/Vol] 133 mmol/L 136-145 [facility] Urea nitrogen [Mass/Vol] 23.0 mg/dL 7.0-18.0 [facility] Urea nitrogen/Creatinine [Mass ratio] 9.4 mg/mg [facility] Laboratory - Hematology and Cell countson 08-03-2023 ESR (Bld) [Velocity] 118 mm/h <=20 [facility] Immature granulocytes/100 WBC (Bld) 0.4 % 0.0-0.5 [facility] Leukocytes [#/volume] correc jorge for nucleated erythrocytes in Blood by Automated counon 08-03-2023 WBC corrected for nucl RBC Auto (Bld) [#/Vol] 14.6 10 3/uL 4.0-11.0 [facility] Lymphocytes Auto (Bld) [#/Vo l]on 08-03-2023 Lymphocytes (Bld) [#/Vol] 2.1 10 3/uL 1.2-3.8 [facility] Lymphocytes/100 WBC Auto (Bl d)on 08-03-2023 Lymphocytes/100 WBC (Bld) 14.3 % 20.5-60.0 [facility] MCH Auto (RBC) [Entitic mass ]on 08-03-2023 MCH (RBC) [Entitic mass] 22.6 pg 25.9-34.0 [facility] MCHC Auto (RBC) [Mass/Vol]on 08-03-2023 MCHC (RBC) [Mass/Vol] 30.3 g/dL 29.9-35.2 [facility] MCV Auto (RBC) [Entitic vol] on 08-03-2023 MCV (RBC) [Entitic vol] 74.4 fL 80.0-94.0 [facility] Monocytes Auto (Bld) [#/Vol] on 08-03-2023 Monocytes (Bld) [#/Vol] 1.4 10 3/uL 0.3-0.8 [facility] Monocytes/100 WBC Auto (Bld) on 08-03-2023 Monocytes/100 WBC (Bld) 9.4 % 1.7-12.0 [facility] Neutrophils Auto (Bld) [#/Vo l]on 08-03-2023 Neutrophils (Bld) [#/Vol] 10.7 10 3/uL 1.4-6.5 [facility] Neutrophils/100 WBC Auto (Bl d)on 08-03-2023 Neutrophils/100 WBC (Bld) 73.4 % 43.0-75.0 [facility] No Panel Informationon C-Reactive Protein, Quantitative 14.63 mg/dL <=0.50 [facility] Eosinophils # (Auto) 0.3 10 3/uL 0.0-0.7 [facility] Immature Granulocyte # (Auto) 0.06 10 3/uL 0.00-0.03 [facility] Venous Blood Partial Pressure CO2 44.8 mm[Hg] 40.0-52.0 [facility] Venous Blood pH 7.432 7.330-7.43 0 [facility] No Panel InformationOrdered By: Jenaro Lynch on 08-03-2023 Blood Culture 2 [facility] Blood Culture 1 [facility] Platelet mean volume Auto (B ld) [Entitic vol]on 08-03-2023 Platelet mean volume (Bld) [Entitic vol] 11.4 fL 9.5-13.5 [facility] Platelets Auto (Bld) [#/Vol] on 08-03-2023 Platelets (Bld) [#/Vol] 252 10 3/uL 150-450 [facility] RBC Auto (Bld) [#/Vol]on RBC (Bld) [#/Vol] 5.23 10 6/uL 4.70-6.10 [facility] Serum or plasma albumin/glob ulin mass ratioon 08-03-2023 Albumin/Globulin [Mass ratio] 0.7 {ratio} [facility] Serum or plasma anion gap de terminationon 08-03-2023 Anion gap [Moles/Vol] 13.7 mmol/L [facility] US venous duplex LE BIon US venous duplex LE BI [facility] Main [address] [address] Ultrasound Report Signed Patient: Solomon Feldman SR MR#: [id number] : 1965 Acct:[id number] Age/Sex: 57 / M ADM Date: 07/12/23 Loc: ER Room: Type: [facility] ER Attending Dr: Ordering Provider: [...] Howard Boss MD07/13/2023 11:56 AM Dictation Location: [place] [address] Tech: Nancy Pantoja Transcribed By: BOB 07/13/23 1156 Dictated By: Howard Boss MD 07/13/23 1156 Signed By: 07/13/23 1156 Normal [facility] US venous duplex UE LTon US venous duplex UE LT [facility] Main [place] [address] [place] [address] Ultrasound Report Signed Patient: Solomon Feldman SR MR#: [id number] : 1965 Acct:[id number] Age/Sex: 57 / M ADM Date: 07/12/23 Loc: ER Room: Type: [facility] ER Attending Dr: Ordering Provider: [...] Howard Boss MD07/13/2023 11:56 AM Dictation Location: [place] [address] Tech: Nancy Pantoja Transcribed By: BOB 07/13/23 1156 Dictated By: Howard Boss MD 07/13/23 1155 Signed By: 07/13/23 1156 Normal [facility] Activated partial thrombopla stin time (aPTT) in platelet poor plasma by coagulation aOrdered By: Nancy Wilson on 07-12-2023 aPTT Coag (PPP) [Time] 29.4 s 25.1-36.5 [facility] Comment on above: A hematocrit value g reater than 55% may lead to inaccurate results in coagulation testing. Patients having hematocrit values >55% require a special collection tube for coagulation studies. Please contact the laboratory at [phone] for redraw instructions. Alanine aminotransferase [En zymatic activity/volume] in Serum or PlasmaOrdered By: Nancy Wilson on 07-12-2023 ALT [Catalytic activity/Vol] 9 U/L Normal 7-52 [facility] Comment on above: Performed By: #### C BC, CMP, BNP, CK, HS TROP, PT, PTT #### [facility] [address] [place] [address] [place] Albumin [Mass/volume] in Ser um or Plasma by Bromocresol green (BCG) dye binding methoOrdered By: Nancy Wilson on 07-12-2023 Albumin BCG dye [Mass/Vol] 3.9 g/dL 3.5-5.7 [facility] Alkaline phosphatase [Enzyma tic activity/volume] in Serum or PlasmaOrdered By: Nancy Wilson on 07-12-2023 ALP [Catalytic activity/Vol] 106 U/L High 34-104 [facility] Comment on above: Performed By: #### C BC, CMP, BNP, CK, HS TROP, PT, PTT #### [facility] [address] [place] [id number] [place] Aspartate aminotransferase [ Enzymatic activity/volume] in Serum or PlasmaOrdered By: Nancy Wilson on 07-12-2023 AST [Catalytic activity/Vol] 8 U/L Low 13-39 [facility] Comment on above: Performed By: #### C BC, CMP, BNP, CK, HS TROP, PT, PTT #### [address] Automated basophil %Ordered By: Nancy Wilson on 07-12-2023 Basophils/100 WBC (Bld) 1.1 % Normal . [facility] Comment on above: Performed By: #### C BC, CMP, BNP, CK, HS TROP, PT, PTT #### [address] Automated basophil countOrde red By: Nancy Wilson on 07-12-2023 Basophils (Bld) [#/Vol] 0.1 10*3/uL Normal 0.0-0.2 [facility] Comment on above: Result Comment: PERF ORMED BY: [place] [address] PATHOLOGIST WINDOWS APPLICATION DEVELOPER CLIFFORD LOBATO M.D. Performed By: #### C BC, CMP, BNP, CK, HS TROP, PT, PTT #### [address] Automated blood monocyte cou ntOrdered By: Nancy Wilson on 07-12-2023 Monocytes (Bld) [#/Vol] 1.0 10*3/uL High 0.0-0.8 [facility] Comment on above: Performed By: #### C BC, CMP, BNP, CK, HS TROP, PT, PTT #### [address] Automated eosinophil %Ordere d By: Nancy Wilson on 07-12-2023 Eosinophils/100 WBC (Bld) 3.3 % Normal . [facility] Comment on above: Performed By: #### C BC, CMP, BNP, CK, HS TROP, PT, PTT #### [address] Automated eosinophil countOr dered By: Nancy Wilson on 07-12-2023 Eosinophils (Bld) [#/Vol] 0.3 10*3/uL Normal 0.0-0.45 [facility] Comment on above: Performed By: #### C BC, CMP, BNP, CK, HS TROP, PT, PTT #### [address] Automated monocyte %Ordered By: Nancy Wilson on 07-12-2023 Monocytes/100 WBC (Bld) 10.2 % Normal . [facility] Comment on above: Performed By: #### C BC, CMP, BNP, CK, HS TROP, PT, PTT #### [address] Automated neutrophil %Ordere d By: Nancy Wilson on 07-12-2023 Neutrophils/100 WBC (Bld) 65.4 % Normal . [facility] Comment on above: Performed By: #### C BC, CMP, BNP, CK, HS TROP, PT, PTT #### [address] BNP ser/plasOrdered By: Laith Wilson on 07-12-2023 Natriuretic peptide B (Bld) [Mass/Vol] 34.0 pg/mL Normal 5-100 [facility] Comment on above: Result Comment: PERF ORMED BY: [place] [address] PATHOLOGIST WINDOWS APPLICATION DEVELOPER CLIFFORD LOBATO M.D. Performed By: #### C BC, CMP, BNP, CK, HS TROP, PT, PTT #### [address] Bilirubin.total [Mass/volume ] in Serum or PlasmaOrdered By: Nancy Wilson on 07-12-2023 Bilirubin [Mass/Vol] 0.4 mg/dL Normal 0.3-1.0 [facility] Comment on above: Performed By: #### C BC, CMP, BNP, CK, HS TROP, PT, PTT #### [address] Calcium [Mass/volume] in Ser um or PlasmaOrdered By: Nancy Wilson on 07-12-2023 Calcium [Mass/Vol] 8.5 mg/dL Low 8.6-10.3 [facility] Comment on above: Performed By: #### C BC, CMP, BNP, CK, HS TROP, PT, PTT #### [address] Carbon dioxide, total [Moles /volume] in Serum or PlasmaOrdered By: Nancy Wilson on 07-12-2023 CO2 [Moles/Vol] 24.5 mmol/L Normal 21.0-31.0 [facility] Comment on above: Performed By: #### C BC, CMP, BNP, CK, HS TROP, PT, PTT #### [facility] [address] Chloride [Moles/volume] in S ilia or PlasmaOrdered By: Nancy Wilson on 07-12-2023 Chloride [Moles/Vol] 102 mmol/L Normal 98-107 [facility] Comment on above: Performed By: #### C BC, CMP, BNP, CK, HS TROP, PT, PTT #### [address] Complete Blood Count Auto Di ffon 07-12-2023 Mean Corpuscular HGB Conc 32.4 g/dL Low 32.5-35.6 [facility] Comment on above: Performed By: #### C BC, CMP, BNP, CK, HS TROP, PT, PTT #### [address] Monocytes/100 WBC (Bld) 18.12 % Normal 0.00-20.00 [facility] Comment on above: Performed By: #### C BC, CMP, BNP, CK, HS TROP, PT, PTT #### [address] NRBC% 0.1 /100{WBC} Normal 0-0.5 [facility] Comment on above: Performed By: #### C BC, CMP, BNP, CK, HS TROP, PT, PTT #### [address] Comprehensive Metabolic Pane guy 07-12-2023 Albumin [Mass/Vol] 3.9 g/dL Normal 3.5-5.7 [facility] Comment on above: Performed By: #### C BC, CMP, BNP, CK, HS TROP, PT, PTT #### [address] Creatinine Clr Calc Pharmacy 54.64 Normal [facility] Comment on above: Result Comment: PERF ORMED BY: [place] [address] PATHOLOGIST WINDOWS APPLICATION DEVELOPER CLIFFORD LOBATO M.D. Performed By: #### C BC, CMP, BNP, CK, HS TROP, PT, PTT #### [address] GFR/1.73 sq M.predicted MDRD (S/P/Bld) [Vol rate/Area] 42.789 mL/min/{1.73_m2} Normal [facility] Comment on above: Performed By: #### C BC, CMP, BNP, CK, HS TROP, PT, PTT #### [address] Creatine kinase [Enzymatic a ctivity/volume] in Serum or PlasmaOrdered By: Nancy Wilson on 07-12-2023 CK [Catalytic activity/Vol] 55 U/L Normal 30-223 [facility] Comment on above: Performed By: #### C BC, CMP, BNP, CK, HS TROP, PT, PTT #### [address] Creatinine [Mass/volume] in Serum or PlasmaOrdered By: Nancy Wilson on 07-12-2023 Creatinine [Mass/Vol] 1.82 mg/dL High 0.70-1.30 [facility] Comment on above: Performed By: #### C BC, CMP, BNP, CK, HS TROP, PT, PTT #### [address] ECG 12 lead ECGon 07-12-2023 ECG 12 lead ECG [facility] Main [place] [address] [place] [address] Electrocardiograph Report Signed Patient: FeldmanSolomon SR MR#: [id number] : 1965 Acct:[id number] Age/Sex: 57 / M ADM Date: 07/12/23 Loc: ER Room: Type: [facility] ER Attending Dr: Ordering Provider: [...] Nancy Wilson MD 01/26 0135 Normal [facility] Erythrocyte distribution wid th [Ratio] by Automated countOrdered By: Nancy Wilson on 07-12-2023 Erythrocyte distribution width (RBC) [Ratio] 17.1 % High 12.0-14.8 [facility] Comment on above: Performed By: #### C BC, CMP, BNP, CK, HS TROP, PT, PTT #### [facility] [address] Erythrocytes [#/volume] in B lood by Automated countOrdered By: Nancy Wilson on 07-12-2023 RBC (Bld) [#/Vol] 4.63 10*6/uL Normal 3.90-5.60 [facility] Comment on above: Performed By: #### C BC, CMP, BNP, CK, HS TROP, PT, PTT #### [facility] [address] Glucose [Mass/volume] in Ser um or PlasmaOrdered By: Nancy Wlison on 07-12-2023 Glucose [Mass/Vol] 302 mg/dL High 70-100 [facility] Comment on above: ADA recommended refe rence rangeRandom Glucose Reference Range is dependent on time and content of last meal. Glucose of more than 200 mg/dL in a nonstressed, ambulatory subject supports the diagnosis of Diabetes Mellitus. Result Comment: [place] Glucose Reference Range is dependent on time and content of last meal. Glucose of more than 200 mg/dL in a nonstressed, ambulatory subject supports the diagnosis of Diabetes Mellitus. ADA recommended reference range Performed By: #### C BC, CMP, BNP, CK, HS TROP, PT, PTT #### [address] Hematocrit [Volume Fraction] of Blood by Automated countOrdered By: Nancy Wilson on 07-12-2023 Hematocrit (Bld) [Volume fraction] 32.7 % Low 38.8-50.0 [facility] Comment on above: Performed By: #### C BC, CMP, BNP, CK, HS TROP, PT, PTT #### [address] Hemoglobin [Mass/volume] in BloodOrdered By: Nancy Wilson on 07-12-2023 Hemoglobin (Bld) [Mass/Vol] 10.6 g/dL Low 13.0-17.0 [facility] Comment on above: Performed By: #### C BC, CMP, BNP, CK, HS TROP, PT, PTT #### [address] INR in Platelet poor plasma by Coagulation assayOrdered By: Nancy Wilson on 07-12-2023 INR Coag (PPP) [Relative time] 1.1 {INR} Normal [facility] Comment on above: INR Therapeutic [...] valves: 3 - 4.5 Performed By: #### C BC, CMP, BNP, CK, HS TROP, PT, PTT #### [address] Leukocytes [#/volume] correc jorge for nucleated erythrocytes in Blood by Automated counOrdered By: Nancy Wilson on 07-12-2023 WBC corrected for nucl RBC Auto (Bld) [#/Vol] 9.5 10*3/uL 4.1-10.5 [facility] Leukocytes [#/volume] in Blo od by Automated countOrdered By: Nancy Wilson on 07-12-2023 WBC (Bld) [#/Vol] 9.5 10*3/uL Normal 4.1-10.5 [facility] Comment on above: Performed By: #### C BC, CMP, BNP, CK, HS TROP, PT, PTT #### [address] Lymphocytes [#/volume] in Bl ood by Automated countOrdered By: Nancy Wilson on 07-12-2023 Lymphocytes (Bld) [#/Vol] 1.9 10*3/uL Normal 1.00-4.8 [facility] Comment on above: Performed By: #### C BC, CMP, BNP, CK, HS TROP, PT, PTT #### [place] [address] [place] Lymphocytes/100 leukocytes i n Blood by Automated countOrdered By: Nancy Wilson on 07-12-2023 Lymphocytes/100 WBC (Bld) 20.0 % Normal . [facility] Comment on above: Performed By: #### C BC, CMP, BNP, CK, HS TROP, PT, PTT #### [place] [address] [place] MCH [Entitic mass] by Automa jorge countOrdered By: Nancy Wilson on 07-12-2023 MCH (RBC) [Entitic mass] 22.8 pg Low 27.5-35.2 [facility] Comment on above: Performed By: #### C BC, CMP, BNP, CK, HS TROP, PT, PTT #### [facility] [address] MCHC Auto (RBC) [Mass/Vol]Or dered By: Nancy Wilson on 07-12-2023 MCHC (RBC) [Mass/Vol] 32.4 g/dL 32.5-35.6 [facility] MCV [Entitic volume] by Auto mated countOrdered By: Nancy Wilson on 07-12-2023 MCV (RBC) [Entitic vol] 70.6 fL Low 83.5-101 [facility] Comment on above: Performed By: #### C BC, CMP, BNP, CK, HS TROP, PT, PTT #### [facility] [address] [place] [address] Monocyte distribution width [Entitic volume] in Blood by AutomatedOrdered By: Nancy Wilson on 07-12-2023 Monocyte distribution width Auto (Bld) [Entitic vol] 18.12 % 0.00-20.00 [facility] Neutrophils [#/volume] in Bl ood by Automated countOrdered By: Nancy Wilson on 07-12-2023 Neutrophils (Bld) [#/Vol] 6.2 10*3/uL Normal 1.8-7.7 [facility] Comment on above: Performed By: #### C BC, CMP, BNP, CK, HS TROP, PT, PTT #### [facility] [address] [place] [address] No Panel InformationOrdered By: Nancy Wilson on 07-12-2023 Estimated GFR (CKD-EPI) 42.789 mL/Min [facility] Creatinine Clearance (Chem 54.64 [facility] Nucleated erythrocytes [Pres ence] in Blood by Automated countOrdered By: Nancy Wilson on 07-12-2023 Nucleated RBC Auto Ql (Bld) 0.1 /100{WBC} 0-0.5 [facility] Partial Thromboplastin Timeo n 07-12-2023 aPTT Coag (Bld) [Time] 29.4 s Normal 25.1-36.5 [facility] Comment on above: Result Comment: A he matocrit value greater than 55% may lead to inaccurate results in coagulation testing. Patients having hematocrit values >55% require a special collection tube for coagulation studies. Please contact the laboratory at [phone] for redraw instructions. PERFORMED BY: [place] [address] PATHOLOGIST WINDOWS APPLICATION DEVELOPER CLIFFORD LOBATO M.D. Performed By: #### C BC, CMP, BNP, CK, HS TROP, PT, PTT ####[facility] [address] [place] [address] Platelet mean volume [Entiti c volume] in Blood by Automated countOrdered By: Nancy Wilson on 07-12-2023 Platelet mean volume (Bld) [Entitic vol] 9.1 fL Normal 6.6-10.1 [facility] Comment on above: Performed By: #### C BC, CMP, BNP, CK, HS TROP, PT, PTT #### [facility] [address] [place] [address] Platelets [#/volume] in Bloo d by Automated countOrdered By: Nancy Wilson on 07-12-2023 Platelets (Bld) [#/Vol] 233 10*3/uL Normal 150-450 [facility] Comment on above: Performed By: #### C BC, CMP, BNP, CK, HS TROP, PT, PTT #### [facility] [address] [place] [address] [place] Potassium [Moles/volume] in Serum or PlasmaOrdered By: Nancy Wilson on 07-12-2023 Potassium [Moles/Vol] 3.9 mmol/L Normal 3.5-5.1 [facility] Comment on above: Performed By: #### C BC, CMP, BNP, CK, HS TROP, PT, PTT #### [facility] [address] [place] [address] [place] Protein [Mass/volume] in Ser um or PlasmaOrdered By: Nancy Wilson on 07-12-2023 Protein [Mass/Vol] 7.0 g/dL Normal 6.4-8.9 [facility] Comment on above: Performed By: #### C BC, CMP, BNP, CK, HS TROP, PT, PTT #### [address] Prothrombin time (PT)Ordered By: Nancy Wilson on 07-12-2023 PT Coag (PPP) [Time] 12.1 s Normal 9.0-12.9 [facility] Comment on above: A hematocrit value g reater than 55% may lead to inaccurate results in coagulation testing. Patients having hematocrit values >55% require a special collection tube for coagulation studies. Please contact the laboratory at [phone] for redraw instructions. Result Comment: A he matocrit value greater than 55% may lead to inaccurate results in coagulation testing. Patients having hematocrit values >55% require a special collection tube for coagulation studies. Please contact the laboratory at [phone] for redraw instructions. Performed By: #### C BC, CMP, BNP, CK, HS TROP, PT, PTT #### [address] Serum globulin measurement b y calculation (mass/volume)Ordered By: Nancy Wilson on 07-12-2023 Globulin (S) [Mass/Vol] 3.1 g/dL [facility] Comment on above: Performed By: #### C BC, CMP, BNP, CK, HS TROP, PT, PTT #### [address] Serum or plasma albumin/glob ulin mass ratioOrdered By: Nancy Wilson on 07-12-2023 Albumin/Globulin [Mass ratio] 1.3 {ratio} [facility] Comment on above: Performed By: #### C BC, CMP, BNP, CK, HS TROP, PT, PTT #### [address] Serum or plasma anion gap de terminationOrdered By: Nancy Wilson on 07-12-2023 Anion gap [Moles/Vol] 13.4 mmol/L Normal 6.0-15.0 [facility] Comment on above: Performed By: #### C BC, CMP, BNP, CK, HS TROP, PT, PTT #### [address] [place] [address] [place] Sodium [Moles/volume] in Ser um or PlasmaOrdered By: Nancy Wilson on 07-12-2023 Sodium [Moles/Vol] 136 mmol/L Normal 136-145 [facility] Comment on above: Performed By: #### C BC, CMP, BNP, CK, HS TROP, PT, PTT #### [facility] [address] [place] [address] Troponin I High Sensitivityo n 07-12-2023 Troponin I High Sensitivity 4.6 pg/mL Normal 0.0-20.0 [facility] Comment on above: Result Comment: PERF ORMED BY: [place] [address] PATHOLOGIST WINDOWS APPLICATION DEVELOPER CLIFFORD LOBATO M.D. Performed By: #### C BC, CMP, BNP, CK, HS TROP, PT, PTT #### [address] Troponin I.cardiac [Mass/vol ume] in Serum or Plasma by Detection limit <= 0.01 ng/Ordered By: Nancy Wilson on 07-12-2023 Troponin I.cardiac DL <= 0.01 ng/mL [Mass/Vol] 4.6 pg/mL 0.0-20.0 [facility] Urea nitrogen [Mass/volume] in Serum or PlasmaOrdered By: Nancy Wilson on 07-12-2023 Urea nitrogen [Mass/Vol] 16 mg/dL Normal 7-25 [facility] Comment on above: Performed By: #### C BC, CMP, BNP, CK, HS TROP, PT, PTT #### [place] [address] [place] XR chest 1V portableon 07-12 XR chest 1V portable [facility] [place] [place] [address] XRay Report Signed Patient: Solomon Feldman SR MR#: [id number] : 1965 Acct:[id number] Age/Sex: 57 / M ADM Date: 07/12/23 [...] Sudeep Lind M.D.07/12/2023 5:08 PM Dictation Location: [place] [address] Transcribed By: [facility] 07/12/231707 Dictated By: Sudeep Lind DO 07/12/231706 Signed By: 07/12/231707 Normal [facility] Patient Educationon 06-02-20 23 [...] Follow these instructions at home: ? Take gpwq-vpi-mesqffl and prescription medicines only as told by [...] (more content not included)... Normal [facility] Retail - Clinical Noteon Retail - Clinical Note [id number]#1.00TIFF [facility] Urology Office/Clinic Noteon 06-02-2023 Urology Office/Clinic Note Chief Complaint S/p to Cysto HPI Staff Sp to Cysto done @ [facility] on 02/14/23- Has not noticed any difference- [...] Contact Information SOLEDAD HERRERA, Yeyo Blum, URL [facility] [place] [phone]- Additional Instructions: 1 month w/ cath volumes [...] (more content not included)... Normal [facility] Comment on above: Result Comment: Elec tronically Signed By: Yeyo ROWE MD\.br\Date and Time Signed: 06/02/23 12:16 EST\.br\Electronically Co-Signed By: Mattie Foster.br\Date and Time Co-Signed: 06/02/23 12:04 EST Patient Educationon 05-03-20 Patient Education Normal [facility] Pathology Noteon 05-01-2023 Pathology Note [id number]#1.00TIFF Normal [facility] Lab Reportson 04-14-2023 Lab Reports [id number]#1.00TIFF Normal [facility] Operative Reporton Operative Report [id number] Normal [facility] Patient Correspondenceon Patient Correspondence [id number]#1.00TIFF Normal [facility] Lab Reportson 03-31-2023 Lab Reports [id number]#1.00TIFF Normal [facility] RAD - MISCon 03-31-2023 RAD - MISC [id number]#1.00TIFF Normal [facility] Patient Correspondenceon Patient Correspondence [id number]#1.00TIFF Normal [facility] Formson 03-23-2023 Forms [id number]#1.00TIFF Normal [facility] A1C HEMOGLOBINon 03-15-2023 HbA1c (Bld) [Mass fraction] 7.5 % [facility] Other HbA1c (Bld) [Mass fraction]o n 03-15-2023 A1C HEMOGLOBIN [facility] Other Lab Reportson 03-09-2023 Lab Reports [id number]#1.00TIFF [facility] Consultation Noteon 02-27-20 Consultation Note [id number]#1.00CD:12 7 [facility] Consent for Procedure/Surger yon 02-15-2023 Consent for Procedure/Surgery [id number]#1.00CD:12 7 [facility] Office Visit (Cardiology)on 02-15-2023 Follow-up visit [...] in adult Healthy Weight Tips; Status:Complete; Done: [id number] Patient Instructions Please bring all medicines, vitamins, [...] Sia HERRERA, (more content not included)... Normal [facility] Tobacco Screening.on 023 Fall risk assessment c) Not medically indicated -[facility] y 250 DO Work Phone: Tobacco use status CP b) No -[facility] 250 DO Work Phone: Tobacco Screening. Yes [facility] 250 DO Work Phone: Consent for Procedure/Surger yon 02-14-2023 Consent for Procedure/Surgery [id number]#1.00CD:1 27 [facility] Consent for Procedure/Surgery [id number]#1.00CD:1 27 [facility] Consent for Treatmenton 02-03 Consent for Treatment [id number]#1.00CD:12 7 [facility] IntraOperative Documentson 0 02-14-2023 IntraOperative Documents [id number]#1.00CD:1 27 [facility] IntraOperative Documents [id number]#1.00CD:1 27 [facility] Main OR Intraoperative Recor don 02-14-2023 Main OR Intraoperative Record IntraOp Document Type FTURO Summary Primary Physician: Yeyo ROWE MD Finalized Date/Time: 02/14/23 10:18:58 Pt. Name: GASTON CHRISTIAN, SOLOMON Navarro./Sex: 1965 Male Med Rec #: [id number] Physician: Yeyo ROWE MD Financial #: [id number] Pt. Type: O Room/Bed: / Admit/Disch: 02/14/23 08:34:46 - Institution: Case Times FTURO Entry 1 Patient Times In Room 02/14/23 09:29:00 Out Room 02/14/23 09:49:00 Procedure Times Start 02/14/23 09:42:00 Stop 02/14/23 09:45:00 Anesthesia Times Last Modified By: Chandrika Martínez RN 02/14/23 09:45:24 Case Attendance FTURO Entry 1 Entry 2 Entry 3 Case Attendee SOLEDAD HERRERA, Yeyo Martínez RN, Chandrika Yin PROMOTIONAL DEMONSTRATOR, Sheri Daniel Role Performed Surgeon - Primary Cut Pressman - Primary Scrub - Primary Time In 02/14/23 09:29:00 02/14/23 09:29:00 02/14/23 09:29:00 Time Out 02/14/23 09:49:00 02/14/23 09:49:00 02/14/23 09:49:00 Procedure CYSTOSCOPY LOCAL(.) CYSTOSCOPY LOCAL(.) CYSTOSCOPY LOCAL(.) Comments Last Modified By: Mauricio RN, Chandrika Martínez RN, Chandrika Carrillo RN 02/14/23 [...] Martínez RN 02/14/23 10:18 Normal [facility] Main OR Preoperative Recordo n 02-14-2023 Main OR Preoperative Record Holding Area Document Type FTURO Summary Primary Physician: Yeyo ROWE MD Finalized Date/Time: 02/14/23 09:01:37 Pt. Name: SOLOMON FELDMAN SR/Sex: 1965 Male Med Rec #: [id number] Physician: Yeyo ROWE MD Financial #: [id number] Pt. Type: O Room/Bed: / Admit/Disch: 02/14/23 [...] glasses; ring x 1 Limitations: up ad senait Comment: Complaints of Pain: No Skin Integrity Warm, Dry Vitals - EU Blood Pressure 118/83 Pulse 93 bpm Respirations 16 br/min SPO2 96 % Additional None RN Reviewed Yes Specimens Collected Last Modified By: Sheri Bolivar RN 02/14/23 09:01:32 Finalized By: Osmel RN, Sheri Y Document Signatures Signed By: Sheri Bolivar RN 02/14/23 09:01 Normal [facility] Operative Reporton 3 Operative Report Patient: Joe [...] coverage, Follow up arranged. Normal [facility] Comment on above: Result Comment: Elec tronically [...] including vitamins, herbs, eye drops, creams, and tpzy-pyk-erssaiu medicines. ? Any problems you or family [...] tells you to take them. ? Taking pbvb-ibh-ufvzupu medicines, vitamins, herbs, and supplements. Surgery safety [...] (more content not included)... Normal [facility] Progress Note-Physicianon Progress Note-Physician Patient: SOLOMON FELDMAN [...] mg = 1 tab(s), PRN, SubLingual, q5min [place] 325 mg-5 mg oral tablet 1 tab(s), [...] 278.00 / Possible Fibromyalgia / SNOMED CT [id number] 099698Y49N4 / Confirmed Restless leg / ICD-9-CM 333.94 / Confirmed Arthritis / SNOMED CT [id number]-P [id number] / Confirmed Hyperlipidemia / SNOMED CT 87869129 / Confirmed Smoker / SNOMED CT [id number]-S [id number] / Confirmed Added secondary to documentation in Social History. Asthma / SNOMED CT 669171497 / Confirmed COPD type A / SNOMED CT 986722566 / Confirmed Head ache / SNOMED CT 44665097 / Confirmed Heart attack / SNOMED CT 24435023 / Confirmed Heart disease / SNOMED CT 30458431 / Confirmed Heart murmur / SNOMED CT 693243657 / Confirmed Urinary retention / SNOMED CT 028285814 / Confirmed BPH with obstruction/lower urinary tract symptoms / SNOMED CT 4361414420 / Confirmed Orchitis / SNOMED CT 295650644 / Confirmed Gross hematuria / SNOMED CT 040795948 / Confirmed Tobacco use / SNOMED CT [id number]-O7V3-7 21275AX0OM2 / Confirmed Added secondary to social history documentation. Histories Past Medical History: Active Fibromyalgia ([id number]- [id number]) Restless leg (333.94) Arthritis ([id number]-68R9-4Z1M- AXQ7R441W323) Hyperlipidemia (90750550) Resolved HTN [Hypertension] (401.9): Resolved. NIDDM (250.00): Resolved. GERD [Gastroesophageal reflux disease] (530.81): Resolved. CHF (congestive heart failure) ([id number]-7M7W-9T84- [id number]): Resolved. SC (myocardial infarction) (102R7VCF-89Y3-7I1K-2X22- 31254W10V9BU): Resolved. Family History: Diabetes mellitus Mother Heart disease Mother Alcoholism Brother Drug addiction Brother Acute myocardial infarction Mother Grandparent Procedure history: Bilateral Eye Surgery. Comments: 07/10/2014 17:25 ALESHA Cormier RN, Kait bilateral cataracts with iol implants Bilateral Carpal Tunnel Surgery. cardiac stents. Appendectomy ([id number]). Colonoscopy ([id number]). Cataract extraction and insertion of intraocular lens ([id number]). Procedure on back ([id number]). Social History Social & Psychosocial Habits Alcohol [...] (more content not included)... Normal [facility] Comment on above: Result Comment: Elec tronically Signed By: SOLEDAD HERRERA, Yeyo Blum\.br\Date and Time Signed: 02/14/23 09:58 EDT Consent for Treatmenton Consent for Treatment [id number] 7 [facility] Ambulatory Visit Summaryon 0 01-30-2023 Ambulatory Visit Summary SOLOMON FELDMAN SR :1965 Visit Date:01/30/2023 Ambulatory Visit Instructions Your Diagnosis Urinary retention Gross hematuria BPH with obstruction/lower urinary tract symptoms Orchitis Your Care Team Attending Physician - Yeyo ROWE MD Primary Care Physician - JENARO LYNCH DO This Is Your Medications List Contact prescribing physician if questions or concerns acetaminophen-hydrocodone (Shapleigh 325 mg-5 mg oral tablet) albuterol (ProAir [...] [facility] [address] , [place] [address] [phone] Medications What How Much When Instructions Unchanged acetaminophen-hydrocodone (Shapleigh 325 mg-5 mg oral tablet) 1 Tablets [...] questions or vivian (more content not included)... [facility] Patient Educationon 01-31-20 23 Patient Education [...] including vitamins, herbs, eye drops, creams, and teet-gvn-qmorjhb medicines. ? Whether you are or may [...] be (more content not included)... Normal [facility] Urology Office/Clinic Noteon 01-30-2023 Urology Office/Clinic [...] Blum, URL [facility] [address], [place] [address] [id number] Additional Instructions: sched cysto/uros Patient Education Urodynamic [...] failure) GERD [Gastroesophageal reflux disease] HTN [Hypertension] SC (myocardial infarction) NIDDM Procedure/Surgical History Appendectomy, Bilateral [...] (more content not included)... Normal [facility] Comment on above: Result Comment: Elec tronically Signed By: Saima Sutton\.br\Date and Time Signed: 01/30/23 11:38 EDT [facility] CARDIAC STRESS/REST INJE CTIONon 01-25-2023 [facility] CARDIAC STRESS/REST INJECTION Patient Name: SOLOMON FELDMAN STUDY: MYOCARDIAL PERFUSION STRESS TEST WITH EXERCISE CONVERTED TO LEXISCAN Performing facility: [facility], [address] [place] [address], [address], [place] [address] [facility] Provider: Dolores Feldman RN, HI TEACHER PCP: Dr. Jenaro Lynch Supervising provider: Pascale Arnold MD, [facility] INDICATION: Anginal equivalent CAD; HISTORY: Gender: M; Age: 57 y/o ; Height: 182.88 cm; Weight: 97.2299293 kg. High Cholesterol; CAD; Diabetes; HTN; Palpitations; Chest Pain; Quit smoking unknown years ago. COMPARISON: Previous nuclear testing completed at [facility]. ACCESSION NUMBER(S): [id number]; [id number]; [id number] ORDERING CLINICIAN: DOLORES FELDMAN TECHNIQUE: ONE DAY [...] Electronically signed by: PASCALE ARNOLD MD Normal [facility] No Panel Informationon 01-25 Normal [facility] 250 DO Work Phone: Office Visit [...] Med Order; Status:Hold For - Scheduling; Requested for:[id number]; Radiologist to Determine Optimal Study : Y [...] contact the office if new symptoms arise. 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 Normal [employer] Tobacco Screening.on 023 Adult depression screening assessment No [facility] 600 DO Work Phone: Tobacco use status CPHS b) No [facility] [employer] 600 DO Work Phone: Ambulatory Visit Summaryon 0 12-28-2022 Ambulatory Visit Summary GASTON CHRISTIAN, SOLOMON Daniel :1965 Visit Date:12/28/2022 Ambulatory Visit Instructions Your Care Team Attending Physician - Yeyo ROWE MD Primary Care Physician - JENARO LYNCH DO This Is Your Medications List acetaminophen-hydrocodone (Shapleigh 325 mg-5 mg oral tablet) albuterol (ProAir [...] HERRERA, Yeyo Blum Where: [facility] Aurelio Normal [facility] Alanine aminotransferase [En zymatic activity/volume] in Serum or PlasmaOrdered By: Jenaro Lynch on 09-27-2022 ALT [Catalytic activity/Vol] 15 U/L 7-52 [facility] Albumin [Mass/volume] in Ser um or Plasma by Bromocresol green (BCG) dye binding methoOrdered By: Jenaro Lynch on 09-27-2022 Albumin BCG dye [Mass/Vol] 4.1 g/dL 3.5-5.7 [facility] Alkaline phosphatase [Enzyma tic activity/volume] in Serum or PlasmaOrdered By: Jenaro Lynch on 09-27-2022 ALP [Catalytic activity/Vol] 116 U/L 34-104 [facility] Aspartate aminotransferase [ Enzymatic activity/volume] in Serum or PlasmaOrdered By: Jenaro Lynch on 09-27-2022 AST [Catalytic activity/Vol] 15 U/L 13-39 [facility] Basophils Auto (Bld) [#/Vol] Ordered By: Jenaro Lynch on 09-27-2022 Basophils (Bld) [#/Vol] 0.1 10*3/uL 0.0-0.2 [facility] Basophils/100 WBC Auto (Bld) Ordered By: Jenaro Lynch on 09-27-2022 Basophils/100 WBC (Bld) 1.1 % . [facility] Bilirubin.total [Mass/volume ] in Serum or PlasmaOrdered By: Jenaro Lynch on 09-27-2022 Bilirubin [Mass/Vol] 0.4 mg/dL 0.3-1.0 [facility] Calcium [Mass/volume] in Ser um or PlasmaOrdered By: Jenaro Lynch on 09-27-2022 Calcium [Mass/Vol] 8.8 mg/dL 8.6-10.3 [facility] Carbon dioxide, total [Moles /volume] in Serum or PlasmaOrdered By: Jenaro Lynch on 09-27-2022 CO2 [Moles/Vol] 27.2 mmol/L 21.0-31.0 [facility] Chloride [Moles/volume] in S ilia or PlasmaOrdered By: Jenaro Lynch on 09-27-2022 Chloride [Moles/Vol] 99 mmol/L 98-107 [facility] Cholesterol [Mass/volume] in Serum or PlasmaOrdered By: Jenaro Lynch on 09-27-2022 Cholesterol [Mass/Vol] 104 mg/dL 140-200 [facility] Comment on above: Chol less than 200 m g/dl low riskChol 201-239 mg/dl borderline riskChol 240 mg/dl and greater high risk Cholesterol in LDL Calc [Mas s/Vol]Ordered By: Jenaro Lynch on 09-27-2022 Cholesterol in LDL [Mass/Vol] TNP [facility] Comment on above: Test not performed Cholesterol in LDL [Mass/vol ume] in Serum or PlasmaOrdered By: Jenaro Lynch on 09-27-2022 Cholesterol in LDL [Mass/Vol] 38 mg/dL 0-100 [facility] Comment on above: LDL ATP III CLASSIFI CATIONLDL less than 100 mg/dL OptimalLDL 100-129 mg/dL Near or above optimalLDL 130-159 mg/dL Borderline highLDL 160-189 mg/dL HighLDL greater than 189 mg/dL Very high Cholesterol in VLDL Calc [Ma ss/Vol]Ordered By: Jenaro Lynch on 09-27-2022 Cholesterol in VLDL [Mass/Vol] 99 mg/dL [facility] Creatinine [Mass/volume] in Serum or PlasmaOrdered By: Jenaro Lynch on 09-27-2022 Creatinine [Mass/Vol] 1.84 mg/dL 0.70-1.30 [facility] Eosinophils Auto (Bld) [#/Vo l]Ordered By: Jenaro Lynch on 09-27-2022 Eosinophils (Bld) [#/Vol] 0.7 10*3/uL 0.0-0.45 [facility] Eosinophils/100 WBC Auto (Bl d)Ordered By: Jenaro Lynch on 09-27-2022 Eosinophils/100 WBC (Bld) 5.9 % . [facility] Erythrocyte distribution wid th Auto (RBC) [Ratio]Ordered By: Jenaro Lynch on 09-27-2022 Erythrocyte distribution width (RBC) [Ratio] 16.0 % 12.0-14.8 [facility] Globulin Calc (S) [Mass/Vol] Ordered By: Jenaro Lynch on 09-27-2022 Globulin (S) [Mass/Vol] 2.9 g/dL [facility] Glucose [Mass/volume] in Ser um or PlasmaOrdered By: Jenaro Lynch on 09-27-2022 Glucose [Mass/Vol] 225 mg/dL 70-100 [facility] Comment on above: ADA recommended refe rence rangeRandom Glucose Reference Range is dependent on time and content of last meal. Glucose of more than 200 mg/dL in a nonstressed, ambulatory subject supports the diagnosis of Diabetes Mellitus. Hematocrit Auto (Bld) [Volum e fraction]Ordered By: Jenaro Lynch on 09-27-2022 Hematocrit (Bld) [Volume fraction] 41.0 % 38.8-50.0 [facility] Hemoglobin [Mass/volume] in BloodOrdered By: Jenaro Lynch on 09-27-2022 Hemoglobin (Bld) [Mass/Vol] 13.2 g/dL 13.0-17.0 [facility] Leukocytes [#/volume] correc jorge for nucleated erythrocytes in Blood by Automated counOrdered By: Jenaro Lynch on 09-27-2022 WBC corrected for nucl RBC Auto (Bld) [#/Vol] 12.4 10*3/uL 4.1-10.5 [facility] Lymphocytes Auto (Bld) [#/Vo l]Ordered By: Jenaro Lynch on 09-27-2022 Lymphocytes (Bld) [#/Vol] 2.3 10*3/uL 1.00-4.8 [facility] Lymphocytes/100 WBC Auto (Bl d)Ordered By: Jenaro Lynch on 09-27-2022 Lymphocytes/100 WBC (Bld) 18.2 % . [facility] MCH Auto (RBC) [Entitic mass ]Ordered By: Jenaro Lynch on 09-27-2022 MCH (RBC) [Entitic mass] 23.9 pg 27.5-35.2 [facility] MCHC Auto (RBC) [Mass/Vol]Or dered By: Jenaro Lynch on 09-27-2022 MCHC (RBC) [Mass/Vol] 32.2 g/dL 32.5-35.6 [facility] MCV Auto (RBC) [Entitic vol] Ordered By: Jenaro Lynch on 09-27-2022 MCV (RBC) [Entitic vol] 74.3 fL 83.5-101 [facility] Monocytes Auto (Bld) [#/Vol] Ordered By: Jenaro Lynch on 09-27-2022 Monocytes (Bld) [#/Vol] 1.0 10*3/uL 0.0-0.8 [facility] Monocytes/100 WBC Auto (Bld) Ordered By: Jenaro Lynch on 09-27-2022 Monocytes/100 WBC (Bld) 7.9 % . [facility] Neutrophils Auto (Bld) [#/Vo l]Ordered By: Jenaro Lynch on 09-27-2022 Neutrophils (Bld) [#/Vol] 8.3 10*3/uL 1.8-7.7 [facility] Neutrophils/100 WBC Auto (Bl d)Ordered By: Jenaro Lynch on 09-27-2022 Neutrophils/100 WBC (Bld) 66.9 % . [facility] No Panel InformationOrdered By: Jenaro Lynch on 09-27-2022 Estimated GFR (CKD-EPI) 42.232 mL/Min [facility] Creatinine Clearance (Chem N/A [facility] Nucleated erythrocytes [Pres ence] in Blood by Automated countOrdered By: Jenaro Lynch on 09-27-2022 Nucleated RBC Auto Ql (Bld) 0.1 /100{WBC} 0-0.5 [facility] Platelet mean volume Auto (B ld) [Entitic vol]Ordered By: Jenaro Lynch on 09-27-2022 Platelet mean volume (Bld) [Entitic vol] 9.1 fL 6.6-10.1 [facility] Platelets Auto (Bld) [#/Vol] Ordered By: Jenaro Lynch on 09-27-2022 Platelets (Bld) [#/Vol] 209 10*3/uL 150-450 [facility] Potassium [Moles/volume] in Serum or PlasmaOrdered By: Jenaro Lynch on 09-27-2022 Potassium [Moles/Vol] 4.3 mmol/L 3.5-5.1 [facility] Protein [Mass/volume] in Ser um or PlasmaOrdered By: Jenaro Lynch on 09-27-2022 Protein [Mass/Vol] 7.0 g/dL 6.4-8.9 [facility] RBC Auto (Bld) [#/Vol]Ordere d By: Jenaro Lynch on 09-27-2022 RBC (Bld) [#/Vol] 5.52 10*6/uL 3.90-5.60 [facility] Serum or plasma albumin/glob ulin mass ratioOrdered By: Jenaro Lynch on 09-27-2022 Albumin/Globulin [Mass ratio] 1.4 {ratio} [facility] Serum or plasma anion gap de terminationOrdered By: Jenaro Lynch on 09-27-2022 Anion gap [Moles/Vol] 14.1 mmol/L 6.0-15.0 [facility] Serum or plasma high density lipoprotein (HDL) cholesterol measurementOrdered By: Jenaro Lynch on 09-27-2022 Cholesterol in HDL [Mass/Vol] 21 mg/dL 29-71 [facility] Comment on above: HDL CHOL ATP-III CLA SSIFICATION Cardiovascular RiskHDL > or equal to 60 mg/dL LOWHDL < 40 mg/dL HIGH Serum or plasma total choles terol/high density lipoprotein (HDL) cholesterol mass ratOrdered By: Jenaro Lynch on 09-27-2022 Cholesterol.total/Chol esterol in HDL [Mass ratio] 5.0 {ratio} <5.0 [facility] Sodium [Moles/volume] in Ser um or PlasmaOrdered By: Jnearo Lynch on 09-27-2022 Sodium [Moles/Vol] 136 mmol/L 136-145 [facility] Thyrotropin [Units/volume] i n Serum or PlasmaOrdered By: Jenaro Lynch on 09-27-2022 TSH Qn 3.62 m[IU]/L 0.45-5.33 [facility] Triglyceride [Mass/volume] i n Serum or PlasmaOrdered By: Jenaro Lynch on 09-27-2022 Triglyceride [Mass/Vol] 497 mg/dL 0-149 [facility] Comment on above: If the [...] Urate [Mass/Vol] 6.2 mg/dL 2.4-7.6 [facility] Urea nitrogen [Mass/volume] in Serum or PlasmaOrdered By: Jenaro Lynch on 09-27-2022 Urea nitrogen [Mass/Vol] 15 mg/dL 7-25 [facility] WBC Auto (Bld) [#/Vol]Ordere d By: Jenaro Lynch on 09-27-2022 WBC (Bld) [#/Vol] 12.4 10*3/uL 4.1-10.5 [facility] A1C HEMOGLOBINon 02-15-2022 HbA1c (Bld) [Mass fraction] % [employer] Other HbA1c (Bld) [Mass fraction]o n 02-15-2022 A1C HEMOGLOBIN [facility] [employer] Other Tobacco Screening.on 022 Adult depression screening assessment No [facility] 250 DO Work Phone: Tobacco use status CPHS b) No [facility] 250 DO Work Phone: A1C HEMOGLOBINon 07-27-2021 HbA1c (Bld) [Mass fraction] 11.8 % [employer] Other HbA1c (Bld) [Mass fraction]o n 07-27-2021 A1C HEMOGLOBIN [employer] Other Vital Signs Date Time Vital Sign [...] 10-23-2023 09:37-0400 Blood Pressure Location Padmini Montes [facility] 10-23-2023 09:37-0400 Diastolic blood pressure 82 mm[Hg] Padmini Montes [facility] 10-23-2023 09:37-0400 Heart rate 107 /min Padmini Montes [facility] 10-23-2023 09:37-0400 SaO2% (BldA) [Mass fraction] 98 % Padmini Montes [facility] 10-23-2023 09:37-0400 Systolic blood pressure 130 mm[Hg] Padmini Montes [facility] 07-31-2023 12:00-0500 Diastolic blood pressure 63 mm[Hg] DO Jenaro Lynch Work Phone: [facility] 07-31-2023 12:00-0500 Heart rate 75 /min DO Jenaro Lynch Work Phone: [facility] 07-31-2023 12:00-0500 Systolic blood pressure 108 mm[Hg] DO Jenaro Lynch Work Phone: [facility] 07-31-2023 08:33-0500 Respiratory rate 18 /min DO Jenarogorge Fraustos Work Phone: [facility] 07-12-2023 18:03-0500 Diastolic blood pressure 73 mm[Hg] DO Jenarogorge Fraustos Work Phone: [facility] 07-12-2023 18:03-0500 Heart rate 76 /min DO Jenarogorge Fraustos Work Phone: [facility] 07-12-2023 18:03-0500 Respiratory rate 20 /min DO Jenaro Fraustos Work Phone: [facility] 07-12-2023 18:03-0500 SaO2% (BldA) [Mass fraction] 98 % DO Jenaro Lynch Work Phone: [facility] 07-12-2023 18:03-0500 Systolic blood pressure 125 mm[Hg] DO Jenarogorge Fraustos Work Phone: [facility] 07-12-2023 16:15-0500 Body height 182.88 cm DO Jenaro Lynch Work Phone: [facility] 07-12-2023 16:15-0500 Body temperature 98.9 [degF] DO Jenaro Lynch Work Phone: [facility] 07-12-2023 16:15-0500 Body weight 99.25 kg DO Jenaro Lynch Work Phone: [facility] 06-02-2023 10:56-0500 Blood Pressure Location Yeyo ROWE [facility] 06-02-2023 10:56-0500 Body temperature 96.98 [degF] Yeyo ROWE [facility] 06-02-2023 10:56-0500 Diastolic blood pressure 84 mm[Hg] Yeyo ROWE [facility] 06-02-2023 10:56-0500 Heart rate 68 /min Yeyo ROWE [facility] 06-02-2023 10:56-0500 Systolic blood pressure 124 mm[Hg] Yeyo ROWE [facility] 04-06-2023 13:15-0400 Body height 180.34 cm Jenaro Lynch Other [employer] Other 04-06-2023 13:15-0400 Body mass index (BMI) [Ratio] 29.43 kg/m2 Jenaro Lynch Other [employer] Other 04-06-2023 13:15-0400 Body weight 95.71 kg Jenaro Lynch Other [employer] Other 04-06-2023 13:15-0400 Diastolic blood pressure 70 mm[Hg] eJnaro Lynch Other [employer] Other 04-06-2023 13:15-0400 Respiratory rate 18 /min Jenaro Lynch Other [employer] Other 04-06-2023 13:15-0400 SaO2% (BldA) [Mass fraction] 97 % Jenaro Lynch Other [employer] Other 04-06-2023 13:15-0400 Systolic blood pressure 100 mm[Hg] Jenaro Lynch Other [employer] Other 03-15-2023 08:30-0400 Body height 180.34 cm Jenaro Lynch Other [employer] Other 03-15-2023 08:30-0400 Body mass index (BMI) [Ratio] 29.01 kg/m2 Jenaro Lynch Other [employer] Other 03-15-2023 08:30-0400 Body weight 94.35 kg Jenaro Lynch Other [employer] Other 03-15-2023 08:30-0400 Diastolic blood pressure 62 mm[Hg] Jenaro Lynch Other [employer] Other 03-15-2023 08:30-0400 Respiratory rate 16 /min Jenaro Lynch Other [employer] Other 03-15-2023 08:30-0400 SaO2% (BldA) [Mass fraction] 97 % Jenaro Lynch Other [employer] Other 03-15-2023 08:30-0400 Systolic blood pressure 88 mm[Hg] Jenaro Lynch Other [employer] Other 02-15-2023 10:04-0400 Body height 182.88 cm Jenaro Lynch Work Phone: [employer] [place] [employer] 250 DO Work Phone: 02-15-2023 10:04-0400 Body mass index (BMI) [Ratio] 28.62 kg/m2 Jenaro Lynch Work Phone: [employer] [employer] 250 DO Work Phone: 02-15-2023 10:04-0400 Body surface area Derived from formula 2.18 m2 Jenaro Lynch Work Phone: [employer] [place] [employer] 250 DO Work Phone: 02-15-2023 10:04-0400 Body weight 95.71 kg Jenaro Mari Fraustos Work Phone: [facility] 250 DO Work Phone: 02-15-2023 10:04-0400 Diastolic blood pressure 70 mm[Hg] Jenaro Guerra Jetts Work Phone: [facility] 250 DO Work Phone: 02-15-2023 10:04-0400 Heart rate 76 /min Jenarogorge Fraustos Work Phone: [facility] 250 DO Work Phone: 02-15-2023 10:04-0400 Systolic blood pressure 102 mm[Hg] Jenaro Fraustos Work Phone: [facility] [employer] 250 DO Work Phone: 01-30-2023 10:23-0400 Blood Pressure Location Yeyo ROWE [facility] 01-30-2023 10:23-0400 Diastolic blood pressure 74 mm[Hg] Yeyo ROWE [facility] 01-30-2023 10:23-0400 Heart rate 68 /min Yeyo ROWE [facility] 01-30-2023 10:23-0400 Respiratory rate 16 /min Yeyo ROWE [facility] 01-30-2023 10:23-0400 Systolic blood pressure 130 mm[Hg] Yeyo ROWE [facility] 01-11-2023 15:08-0400 Body height 180.34 cm Jenaro Lynch Work Phone: [facility] 600 DO Work Phone: 01-11-2023 15:08-0400 Body mass index (BMI) [Ratio] 30.13 kg/m2 Jenaro Lynch Work Phone: [facility] 600 DO Work Phone: 01-11-2023 15:08-0400 Body surface area Derived from formula 2.18 m2 Jenaro Lynch Work Phone: [facility] [employer] 600 DO Work Phone: 01-11-2023 15:08-0400 Body weight 97.98 kg Jenaro Lynch Work Phone: [facility] 600 DO Work Phone: 01-11-2023 15:08-0400 Diastolic blood pressure 86 mm[Hg] Jenaro Lynch Work Phone: [facility] 600 DO Work Phone: 01-11-2023 15:08-0400 Heart rate 74 /min Jenaro Lynch Work Phone: [facility] 600 DO Work Phone: 01-11-2023 15:08-0400 Systolic blood pressure 122 mm[Hg] Jenaro Lynch Work Phone: [facility] 600 DO Work Phone: 12-01-2022 12:45-0400 Body height 180.34 cm Jenaro Lynch Other [employer] Other 12-01-2022 12:45-0400 Body mass index (BMI) [Ratio] 29.73 kg/m2 Jenaro Lynch Other [place] [employer] Other 12-01-2022 12:45-0400 Body weight 96.71 kg Jenaro Lynch Other [employer] Other 12-01-2022 12:45-0400 Diastolic blood pressure 70 mm[Hg] Jenaro Lynch Other [employer] Other 12-01-2022 12:45-0400 Respiratory rate 18 /min Jenaro Lynch Other [employer] Other 12-01-2022 12:45-0400 SaO2% (BldA) [Mass fraction] 94 % Jenaro Lynch Other [employer] Other 12-01-2022 12:45-0400 Systolic blood pressure 122 mm[Hg] Jenaor Lynch Other [employer] Other 11-23-2022 11:38-0400 Blood Pressure Location [employer] [facility] 11-23-2022 11:38-0400 Diastolic blood pressure 85 mm[Hg] Yeyo ROWE [facility] 11-23-2022 11:38-0400 Heart rate 76 /min [employer] [facility] 11-23-2022 11:38-0400 Systolic blood pressure 130 mm[Hg] Yeyo ROWE [facility] 07-04-2022 10:30-0500 Body height 180.34 cm Jenaro Lynch Other [employer] Other 07-04-2022 10:30-0500 Body mass index (BMI) [Ratio] 29.43 kg/m2 Jenaro Lynch Other [employer] Other 07-04-2022 10:30-0500 Body weight 95.71 kg Jenarogorge Fraustojoe Other [employer] Other 07-04-2022 10:30-0500 Diastolic blood pressure 86 mm[Hg] Jenaro Lynch Other [employer] Other 07-04-2022 10:30-0500 Respiratory rate 16 /min Jenaro Lynch Other [employer] Other 07-04-2022 10:30-0500 Systolic blood pressure 146 mm[Hg] Jenaro Lynch Other [employer] Other 02-15-2022 13:45-0400 Body height 180.34 cm Jenaro Lynch Other [employer] Other 02-15-2022 13:45-0400 Body mass index (BMI) [Ratio] 30.12 kg/m2 Jenaro Lynch Other [employer] Other 02-15-2022 13:45-0400 Body weight 97.98 kg Jenaro Lynch Other [employer] Other 02-15-2022 13:45-0400 Diastolic blood pressure 62 mm[Hg] Jenaro Lynch Other [employer] Other 02-15-2022 13:45-0400 Respiratory rate 16 /min Jenaro Lynch Other [employer] Other 02-15-2022 13:45-0400 SaO2% (BldA) [Mass fraction] 96 % Jenaro Lynch Other [employer] Other 02-15-2022 13:45-0400 Systolic blood pressure 100 mm[Hg] Jenaro Lynch Other [facility] [employer] Other 10-26-2021 10:01-0400 Body height 180.34 cm Jenaro Lynch Work Phone: [facility] 250 DO Work Phone: 10-26-2021 10:01-0400 Body mass index (BMI) [Ratio] 29.99 kg/m2 Jenaro Lynch Work Phone: [facility] 250 DO Work Phone: 10-26-2021 10:01-0400 Body surface area Derived from formula 2.17 m2 Jenaro Lynch Work Phone: [facility] 250 DO Work Phone: 10-26-2021 10:01-0400 Body weight 97.52 kg Jenaro Mari Syed Work Phone: [facility] 250 DO Work Phone: 10-26-2021 10:01-0400 Diastolic blood pressure 70 mm[Hg] Jenaro Lynch Work Phone: [facility] [employer] 250 DO Work Phone: 10-26-2021 10:01-0400 Heart rate 68 /min Jenaro Lynch Work Phone: [facility] 250 DO Work Phone: 10-26-2021 10:01-0400 Systolic blood pressure 104 mm[Hg] Jenaro Lynch Work Phone: [facility] 250 DO Work Phone: 10-19-2021 12:20-0400 Body height 180.34 cm Amina Fagan Other [employer] Other 10-19-2021 12:20-0400 Body mass index (BMI) [Ratio] 30.65 kg/m2 Amina Kinseys Other [employer] Other 10-19-2021 12:20-0400 Body temperature 96.8 [degF] Amina Fagan Other [employer] Other 10-19-2021 12:20-0400 Body weight 99.7 kg Amina Fagan Other [employer] Other 10-19-2021 12:20-0400 Diastolic blood pressure 71 mm[Hg] Amina Fagna Other [facility] Other 10-19-2021 12:20-0400 Respiratory rate 18 /min Amina Fagan Other [facility] Other 10-19-2021 12:20-0400 SaO2% (BldA) [Mass fraction] 98 % Amina Fagan Other [facility] Other 10-19-2021 12:20-0400 Systolic blood pressure 111 mm[Hg] Amina Fagan Other [facility] Other 07-27-2021 14:00-0500 Body height 180.34 cm Jenaro Lynch Other [facility] Other 07-27-2021 14:00-0500 Body mass index (BMI) [Ratio] 30.4 kg/m2 Jenaro Lynch Other [facility] Other 07-27-2021 14:00-0500 Body weight 98.88 kg Jenaro Lynch Other [facility] Other 07-27-2021 14:00-0500 Diastolic blood pressure 76 mm[Hg] Jenaro Lynch Other [facility] Other 07-27-2021 14:00-0500 Respiratory rate 18 /min Jenaro Lynch Other [facility] Other 07-27-2021 14:00-0500 SaO2% (BldA) [Mass fraction] 98 % Jenaro Lynch Other [facility] Other 07-27-2021 14:00-0500 Systolic blood pressure 112 mm[Hg] Jenaro Lynch Other [facility] Other Encounters Encounter Date Encounter Type Care Provider Facility Start: 02-12-2024 ambulatory Yeyo Ley ty:[facility] Start: 01-08-2024 End: 01-08-2024 ambulatory Padmini Montes Facility:[facility] Start: 01-01-2024 End: 01-01-2024 ambulatory [facility] Start: 12-21-2023 End: 12-21-2023 ambulatory [facility] Start: 12-15-2023 End: 12-15-2023 ambulatory DO Jenaro Lynch Work Phone: [facility] Work Phone: Start: 12-15-2023 End: 12-15-2023 Departed Referred DO Jenaro Lynch Work Phone: [facility] Start: 12-10-2023 Non-patient / Non-visit DO Phillip Lynch Work Phone: [facility] Work Phone: Start: 12-09-2023 Non-patient / Non-visit DO Phillip an Kuns Work Phone: [facility] Work Phone: Start: 11-30-2023 End: 11-30-2023 ambulatory [facility] Start: 11-26-2023 Non-patient / Non-visit DO Phillip an Kuns Work Phone: [facility] Work Phone: Start: 11-23-2023 End: 11-23-2023 ambulatory [facility] Start: 11-15-2023 End: 11-15-2023 ambulatory [facility] Start: 11-15-2023 Non-patient / Non-visit DO Phillip an Kuns Work Phone: [facility] Work Phone: Start: 11-14-2023 End: 11-14-2023 Evaluation and management of inpatient [facility] Start: 11-07-2023 End: 11-14-2023 Evaluation and management of inpatient [facility] Start: 11-07-2023 End: 11-14-2023 Evaluation and management of inpatient [facility] Start: 10-24-2023 End: 10-24-2023 ambulatory [facility] Ambulatory Start: 10-24-2023 End: 10-24-2023 Encounter for preprocedural cardiovascular examination [facility]ulatory Start: 10-24-2023 End: 10-24-2023 Office outpatient visit 25 minutes Raulito Inman MD Work Phone: [facility] Comment on above: History of PTCA; Hyperlipidemia, unspecified hyperlipidemia type; Encounter for pre-operative cardiovascular clearance; Former smoker Start: 10-24-2023 End: 10-24-2023 Patient encounter status Raulito Inman MD Work Phone: [facility] Work Phone: Start: 10-23-2023 End: 10-23-2023 ambulatory XXXX NONE Facility:[facility] Start: 10-23-2023 End: 10-23-2023 Patient encounter procedure Padmini Montes [facility] Start: 10-19-2023 End: 10-19-2023 ambulatory Padmini Montes Facility:[facility] Start: 10-19-2023 End: 10-19-2023 Patient encounter procedure Padmini Montes [facility] Start: 10-18-2023 End: 10-18-2023 ambulatory PADMINI MONTES [facility] Start: 10-06-2023 Non-patient / Non-visit DO Phillip an Kuns Work Phone: [facility] Work Phone: Start: 10-05-2023 End: 10-05-2023 ambulatory DO Jenaro Lynch Work Phone: [facility] Work Phone: Start: 10-05-2023 End: 10-05-2023 Departed Referred DO Jenaro Lynch Work Phone: [facility] Start: 10-05-2023 Non-patient / Non-visit DO Phillip an Kuns Work Phone: [facility] Work Phone: Start: 10-04-2023 Non-patient / Non-visit DO Phillip an Kuns Work Phone: [facility] Work Phone: Start: 10-03-2023 Non-patient / Non-visit DO Phillip an Kuns Work Phone: [facility] Work Phone: Start: 10-02-2023 End: 10-02-2023 ambulatory DO Jenaro Fraustos Work Phone: [facility] Work Phone: Start: 10-02-2023 End: 10-02-2023 Departed Referred DO Jenaro Lynch Work Phone: [facility] Path [facility] Start: 10-02-2023 Non-patient / Non-visit DO Phillip an Jetts Work Phone: [facility] Work Phone: Start: 10-01-2023 Non-patient / Non-visit DO Phillip an Jetts Work Phone: [facility] Work Phone: Start: 09-30-2023 Non-patient / Non-visit DO Phillip an Kuns Work Phone: [facility] Work Phone: Start: 09-27-2023 Non-patient / Non-visit DO Phillip an Kuns Work Phone: [facility] Work Phone: Start: 09-21-2023 End: 09-21-2023 ambulatory DO Jenaro Syed Work Phone: [facility] Work Phone: Start: 09-21-2023 End: 09-21-2023 Departed Referred DO Jenaro Lynch Work Phone: [facility] Start: 09-21-2023 Non-patient / Non-visit DO Phillip an Kuns Work Phone: [facility] Work Phone: Start: 09-18-2023 Non-patient / Non-visit DO Phillip an Kuns Work Phone: [facility] Work Phone: Start: 09-08-2023 End: 09-08-2023 ambulatory Yeyo R SOLEDAD Facility:[facility] Start: 09-08-2023 End: 09-08-2023 Patient encounter procedure Yeyo ROWE [facility] Start: 08-10-2023 Non-patient / Non-visit DO Phillip an Kuns Work Phone: [facility] Work Phone: Start: 08-08-2023 Non-patient / Non-visit DO Phillip an Kuns Work Phone: [facility] Work Phone: Start: 08-07-2023 Non-patient / Non-visit DO Phillip an Kuns Work Phone: [facility] Work Phone: Start: 08-06-2023 Non-patient / Non-visit DO Phillip an Kuns Work Phone: [facility] Work Phone: Start: 08-05-2023 Non-patient / Non-visit DO Phillip an Kuns Work Phone: [facility] Work Phone: Start: 08-04-2023 Non-patient / Non-visit DO Phillip an Kuns Work Phone: [facility] Work Phone: Start: 08-03-2023 Non-patient / Non-visit DO Phillip an Kuns Work Phone: [facility] Work Phone: Start: 07-31-2023 Registered Recurring DO Jenaro Syed Work Phone: [facility] - [facility]/P Work Phone: Start: 07-31-2023 ambulatory Jenaro Lynch Facility:[facility] Start: 07-26-2023 Non-patient / Non-visit DO Phillip gorge Jettjoe Work Phone: [facility] [employer] Work Phone: Start: 07-12-2023 End: 07-12-2023 Emergency department patient visit DO Jenaro Lynch Work Phone: [facility]-Emergency Room Work Phone: Start: 07-07-2023 End: 07-07-2023 ambulatory Jenaro Lynch Other [facility] [employer] Other Start: 07-07-2023 [facility] Start: 07-03-2023 End: 07-03-2023 ambulatory Yeyo ROWE Facility:[facility] Start: 06-26-2023 End: 06-26-2023 ambulatory Jenaro Lynch Other [place] [employer] Other Start: 06-26-2023 Telephone encounter Jenaro Lynch [facility] Start: 06-02-2023 End: 06-02-2023 ambulatory Yeyo ROWE Facility:[facility] Start: 06-02-2023 End: 06-02-2023 Patient encounter procedure Yeyo ROWE [facility] Start: 05-16-2023 End: 05-16-2023 ambulatory Jenaro Lynch Other [place] [employer] Other Start: 05-16-2023 Telephone encounter Jenaro Lynch [facility] Start: 05-03-2023 End: 05-03-2023 ambulatory Yeyoneel ROWE Facility:[facility] Start: 05-03-2023 End: 05-03-2023 Patient encounter procedure Yeyo ROWE [facility] Start: 04-28-2023 End: 04-28-2023 ambulatory Jenaro Lynch Other [facility] Other Start: 04-28-2023 Telephone encounter Jenaro [facility] Start: 04-18-2023 End: 04-18-2023 ambulatory Yeyoneel ROWE Facility:[facility] Start: 04-18-2023 End: 04-18-2023 Patient encounter procedure Yeyo ROWE [facility] Start: 04-17-2023 ambulatory Yeyo ROWE Facili ty:[facility] Start: 04-13-2023 End: 04-13-2023 ambulatory Yeyoneel ROWE Facility:[id number] Start: 04-11-2023 End: 04-11-2023 ambulatory Jenaro Lynch Other [facility] Other Start: 04-11-2023 Telephone encounter Jenaro Lynch [facility] Start: 04-06-2023 End: 04-06-2023 ambulatory Jenaro Lynch Other [facility] Other Start: 04-06-2023 Encounter for other preprocedural examination Jenaro Lynch [facility] Start: 04-06-2023 Office outpatient vi sit 25 minutes Jenaro Lynch [facility] Start: 03-28-2023 End: 03-28-2023 ambulatory Jenaro Lynch Other [facility] Other Start: 03-28-2023 Telephone encounter Jenaro Lynch [facility] Start: 03-20-2023 [facility] Start: 03-15-2023 End: 03-15-2023 ambulatory Yeyo ROWE [facility] [employer] Other Start: 03-15-2023 Office outpatient vi sit 25 minutes Jenaro Lynch [facility] Start: 03-10-2023 End: 03-10-2023 ambulatory Jenaro Lynch Other [facility] [employer] Other Start: 03-10-2023 Telephone encounter Jenaro Lynch [facility] Start: 02-15-2023 Office outpatient vi sit 15 minutes Jenaro Lynch Work Phone: [place] [address] DO Work Phone: Start: 02-15-2023 ambulatory Dolores Feldman Facility:[id number] Start: 02-14-2023 End: 02-14-2023 ambulatory Yeyo ROWE Facility:[facility] Start: 02-14-2023 End: 02-14-2023 Patient encounter procedure Yeyo ROWE [facility] Start: 02-08-2023 End: 02-08-2023 ambulatory Yeyo ROWE Facility:[facility] Start: 02-08-2023 End: 02-08-2023 Patient encounter procedure Yeyo ROWE [facility] Start: 01-30-2023 End: 01-30-2023 ambulatory Yeyo ROWE Facility:[facility] Start: 01-30-2023 End: 01-30-2023 Patient encounter procedure Yeyo ROWE [facility] Start: 01-25-[address] Jenaro Lynch Facility:[id number] Start: 01-17-2023 End: 01-17-2023 ambulatory Jenaro Lynch Other [facility] Other Start: 01-17-2023 Telephone encounter Jenaro Lynch [facility] Start: 01-11-2023 Office outpatient vi sit 25 minutes Jenaro Lynch Work Phone: [facility] 600 DO Work Phone: Start: 01-11-2023 ambulatory Dolores Feldman Facility:[id number] Start: 12-28-2022 End: 12-28-2022 ambulatory Yeyo ROWE Facility:[facility] Start: 12-28-2022 End: 12-28-2022 Patient encounter procedure Yeyo ROWE [facility] Start: 12-21-2022 ambulatory Yeyo ROWE Facili ty: [facility] Start: 12-01-2022 End: 12-01-2022 ambulatory Jenaro Lynch Other [facility] Other Start: 12-01-2022 Office outpatient vi sit 25 minutes Jenaro Lynch [facility] Start: 11-30-2022 ambulatory Yeyo ROWE Facility :[facility] Start: 11-23-2022 End: 11-23-2022 Patient encounter procedure Yeyo Viktoria SOLEDAD [facility] Start: 10-07-2022 End: 10-07-2022 ambulatory Jenaro Lynch Other [facility] Other Start: 10-07-2022 Telephone encounter Jenaro Lynch [facility] Start: 09-27-2022 End: 09-27-2022 ambulatory DO Jenaro Lynch Work Phone: [facility] Work Phone: Start: 09-27-2022 End: 09-27-2022 Patient encounter procedure DO Jenarogorge Fraustojoe Work Phone: [facility] Work Phone: Start: 09-21-2022 End: 09-21-2022 ambulatory Jenaro Lynch Other [facility] Other Start: 09-21-2022 Telephone encounter Jenaro Lynch [facility] Start: 09-14-2022 End: 09-14-2022 ambulatory Jenaro Lynch Other [facility] Other Start: 09-14-2022 Telephone encounter Jenaro Lynch [facility] Start: 09-02-2022 End: 09-02-2022 Patient encounter procedure DO Jenaro Lynch Work Phone: [facility] Work Phone: Start: 08-25-2022 End: 08-25-2022 ambulatory Tondra Mapus Other [facility] Other Start: 08-25-2022 Telephone encounter Tondra Mapus [facility] Start: 08-22-2022 End: 08-22-2022 ambulatory Jenaro Lynch Other [facility] Other Start: 08-22-2022 Telephone encounter Jenaro Lynch [facility] Start: 08-05-2022 End: 08-05-2022 ambulatory Jenaro Lynch Other [facility] Other Start: 08-05-2022 Telephone encounter Jenaro Lynch [facility] Start: 08-04-2022 End: 08-04-2022 ambulatory Jenaro Lynch Other [facility] Other Start: 08-04-2022 Telephone encounter Jenaro Lynch [facility] Start: 07-28-2022 End: 07-28-2022 ambulatory Jenaro Fraustojoe Other [facility] Other Start: 07-28-2022 Telephone encounter Jenaro Lynch [facility] Start: 07-25-2022 End: 07-25-2022 ambulatory Jenaro Fraustojoe Other [facility] Other Start: 07-25-2022 Nursing evaluation o f patient and report Jenaro Lynch [facility] Start: 07-19-2022 End: 07-19-2022 ambulatory Jenaro Lynch Other [facility] Other Start: 07-19-2022 Telephone encounter Jenaro Lynch [facility] Start: 07-15-2022 End: 07-15-2022 ambulatory Jenaro Lynch Other [facility] Other Start: 07-15-2022 Telephone encounter Jenaro Lynch [facility] Start: 07-13-2022 End: 07-13-2022 ambulatory Jenaro Lynch Other [facility] Other Start: 07-13-2022 Nursing evaluation o f patient and report Jenaro Lynch [facility] Start: 07-12-[address] Raulito gutierrez [facility] Facility: Start: 07-05-2022 End: 07-05-2022 ambulatory Jenaro Lynch Other [employer] Other Start: 07-05-2022 Telephone encounter Jenaro Lynch [facility] Start: 07-05-2022 Rx Renewal Jenaro Lynch Work Phone: [facility] 250 DO Work Phone: Start: 07-04-2022 End: 07-04-2022 ambulatory Jenarogorge Fraustos Other [facility] Other Start: 07-04-2022 Office outpatient vi sit 25 minutes Jenaro Fraustos [facility] Start: 06-30-2022 End: 06-30-2022 ambulatory Jenaro Jetts Other [facility] Other Start: 06-30-2022 Telephone encounter Jenaro Jetts [facility] Start: 05-25-2022 End: 05-25-2022 ambulatory Jenaro Fraustos Other [facility] Other Start: 05-25-2022 Telephone encounter Jenaro Jetts [facility] Start: 04-25-2022 End: 04-25-2022 ambulatory Jenaro Fraustos Other [facility] Other Start: 04-25-2022 Telephone encounter Jenaro Jetts [facility] Start: 04-19-2022 End: 04-19-2022 ambulatory Jenaro Jetts Other [facility] Other Start: 04-19-2022 Telephone encounter Jenarogorge Fraustos [facility] Start: 03-22-2022 End: 03-22-2022 ambulatory Jenaro Jetts Other [facility] Other Start: 03-22-2022 Telephone encounter Jenarogorge Fraustos [facility] Start: 03-01-2022 End: 03-01-2022 ambulatory Jenarogorge Fraustos Other [facility] Other Start: 03-01-2022 Telephone encounter Jenarogorge Fraustos [facility] Start: 02-18-2022 End: 02-18-2022 ambulatory Jenaro Fraustos Other [facility] Other Start: 02-18-2022 Telephone encounter Jenaro Lynch [facility] [place] Start: 02-15-2022 End: 02-15-2022 ambulatory Verona Whaley Other [facility] Other Start: 02-15-2022 Office outpatient vi sit 25 minutes Jenaro Lynch [facility] [place] Start: 02-15-2022 Telephone encounter Verona Whaley [facility] Start: 01-21-2022 End: 01-21-2022 ambulatory Jenaro Lynch Other [facility] Other Start: 01-21-2022 Telephone encounter Jenaro Lynch [facility] [place] Start: 01-19-2022 End: 01-19-2022 ambulatory Jenaro Lynch Other [facility] Other Start: 01-19-2022 Telephone encounter Jenaro Lynch [facility] [place] Start: 01-13-2022 End: 01-13-2022 ambulatory Jenaro Lynch Other [facility] Other Start: 01-13-2022 Telephone encounter Jenaro Lynch [facility] [place] Start: 12-23-2021 End: 12-23-2021 ambulatory Jenaro Lynch Other [facility] Other Start: 12-23-2021 Telephone encounter Jenaro Lynch [facility] [place] Start: 11-24-2021 End: 11-24-2021 ambulatory Jenaro Lynch Other [facility] Other Start: 11-24-2021 Telephone encounter Jenaor Lynch [facility] [place] Start: 11-03-2021 Rx Renewal Jenaro Lynch Work Phone: [facility] 250 DO Work Phone: Start: 10-26-2021 Office outpatient vi sit 25 minutes Jenaro Lynch Work Phone: [facility] 250 DO Work Phone: Start: 10-25-2021 End: 10-25-2021 ambulatory Jenaro Lynch Other [facility] Other Start: 10-25-2021 Telephone encounter Jenaro Lynch [facility] [place] Start: 10-19-2021 End: 10-19-2021 ambulatory Azjuan Bakdariuss Other [facility] Other Start: 10-19-2021 Office outpatient vi sit 25 minutes Aziz Bakhous [facility] Start: 10-18-2021 End: 10-18-2021 ambulatory Aziz Bakhous Other [facility] Other Start: 10-18-2021 Telephone encounter Aziz Bakhous [facility] Start: 10-12-2021 End: 10-13-2021 ambulatory DUARTE HENRY . Facility: Start: 10-08-2021 End: 10-08-2021 ambulatory Jenaro Lynch Other [facility] Other Start: 10-08-2021 Telephone encounter Jenaro Lynch [facility] Start: 09-22-2021 End: 09-22-2021 ambulatory Jenaro Lynch Other [facility] Other Start: 09-22-2021 Telephone encounter Jenaro Lynch [facility] Start: 09-21-2021 End: 09-21-2021 ambulatory Jenaro Lynch Other [facility] Other Start: 09-21-2021 Telephone encounter Jenaro Lynch [facility] Start: 08-09-2021 End: 08-09-2021 ambulatory Jenaro Lynch Other [facility] Other Start: 08-09-2021 Telephone encounter Jenaro Lynch [facility] [place] Start: 08-02-2021 End: 08-02-2021 ambulatory Jenaro Lynch Other [facility] Other Start: 08-02-2021 Telephone encounter Jenaro Lynch [facility] Start: 07-27-2021 End: 07-27-2021 ambulatory Jenaro Lynch Other [facility] Other Start: 07-27-2021 Office outpatient vi sit 25 minutes [facility] Start: 06-23-2021 End: 06-23-2021 ambulatory Jenaro Lynch Other [facility] Other Start: 06-23-2021 Telephone encounter Jenaro Lynch [facility] Start: 06-22-2021 Rx Renewal Jenaro Lynch Work Phone: [facility] 250 DO Work Phone: Start: 05-03-2021 End: 05-03-2021 ambulatory Jenaro Lynch Other [place] [employer] Other Start: 05-03-2021 Telephone encounter Jenaro Lynch [facility] Procedures Date Procedure Procedure Detail Performing Clinician Start: 11-26-2023 Blood Culture 1 DO Brya n Kuns Work Phone: Start: 11-26-2023 Blood Culture 2 DO Brya n Kuns Work Phone: Start: 11-15-2023 Blood Culture 1 DO Brya n Kuns Work Phone: Start: 11-15-2023 Blood Culture 2 DO Brya n Kuns Work Phone: Start: 10-24-2023 Ecg routine ecg [...] MD Work Phone: Procedure on back Jenaro Mari ramirez Work Phone: Comment on above: nerve ablation; Procedure on back Yeyo DOSHI Scrotum and testicle operation Jenaro Lynch Work Phone: Plan of Treatment Date Care Activity Detail Author Start: 10-21-2024 End: 10-21-2024 Patient encounter procedure 10/21/2024 8:00 AM EDT Office Visit [facility] [address] [id number] Dolores Feldman, [employer] 703 [facility] 2, [address] [address] [facility] Start: 02-04-2024 Influenza vaccination Influenza Vaccine (Season Ended) [facility] Start: 11-15-2023 FUV, Provider: Raulito Inman, Status: Pen, Time: 2:40 PM FUV, Provider: Raulito Inman, Status: Pen, Time: 2:40 PM [facility] 250 DO Work Phone: Start: 10-02-2023 Acid Fast Culture Acid Fast Culture [facility] Start: 09-30-2023 Blood Culture 1 Blood Culture 1 [facility] Start: 09-30-2023 Blood Culture 2 Blood Culture 2 [facility] Start: 09-30-2023 Wound Culture Wound Culture [facility] Start: 09-21-2023 Abscess Culture Abscess Culture [facility] Start: 08-10-2023 Acid Fast Culture Acid Fast Culture [facility] Start: 08-05-2023 Wound Culture Wound Culture [facility] Start: 07-12-2023 Duplex scan of lower limb veins US venous duplex LE BI [facility] Start: 07-12-2023 US Lower extremity vein - bilateral [facility] Start: 07-12-2023 Duplex scan veins of upper limb US venous duplex UE LT [facility] Start: 07-12-2023 US Upper extremity vein - left [facility] Start: 02-15-2023 FUV, Provider: Dolores Velazquez, Status: Pen, Time: 10:00 AM FUV, Provider: Dolores Velazquez, Status: Pen, [facility]: 10:00 [facility] Work [facility]: Start: 02-03-2023 COVID-19 Vaccine ( season) COVID-19 Vaccine ( season) [facility] Start: 01-25-2023 STRESS NUC, Provider: [facility] NUCLEAR 01,[id number], Status: Pen, Time: 8:30 AM STRESS NUC, Provider: [facility] NUCLEAR 01,[id number], Status: Pen, Time: 8:30 AM [facility] Work Phone: Start: 07-12-2022 FUV, Provider: Rualito Inman, Status: Pen, Time: 9:20 AM FUV, Provider: Raulito Inman, Status: Pen, Time: 9:20 AM [facility] [employer] 250 DO Work Phone: Start: 10-26-2021 FUV, Provider: Raulito Inman, Status: Pen, Time: 9:30 AM FUV, Provider: Raulito Inman, Status: Pen, Time: 9:30 AM [facility] 250 DO Work Phone: Start: 03-05-2019 Pneumococcal [...] 1983 Hepatitis C screening Hepatitis C Screening [facility] Start: 1975 Diabetic foot examination Diabetes: [...] 1965 Yearly Adult Physical Yearly Adult Physical [facility] Patient Education Dependent Edema (DC) [facility] Work Phone: Patient referral [facility] Work Phone: Immunizations Immunization Date Immunization Notes Care Provider Sachin pettit 11-13-2020 Pfizer-BioNTech COVI D-19 Vacc 30 MCG/0.3ML Intramuscular Suspension Jenaro Lynch Work Phone: [facility] 10-23-2020 Pfizer-[employer] COVI D-19 Vacc 30 MCG/0.3ML Intramuscular Suspension Jenaro Lynch Work Phone: [facility] 01-14-2019 influenza, seasonal, injectable Jenaro Lynch Other [facility] 01-14-2019 influenza virus vacc ine, unspecified formulation Yeyo ROWE [facility] 04-02-2018 influenza virus vacc ine, unspecified formulation Yeyo ROWE [facility] 04-02-2018 influenza, injectabl e, quadrivalent, preservative free DO Jenaro Lynch Work Phone: [facility] 03-05-2018 influenza virus vacc ine, unspecified formulation Jenaro Lynch Work Phone: [facility] 250 DO Work Phone: 03-05-2018 pneumococcal polysaccharide vaccine, 23 valent Jenaro Lynch Work Phone: [facility] 250 DO Work Phone: 03-07-2016 influenza virus vacc ine, unspecified formulation Yeyo ROWE [facility] 03-07-2016 influenza, injectabl e, quadrivalent, preservative free Jenaro Lynch Work Phone: [facility] 600 DO Work Phone: 02-22-2016 pneumococcal polysaccharide vaccine, 23 valent Jenaro Lynch Work Phone: [facility] Payers Date Payer Category Payer Unknown 2023 Self-pay [id number] 2022 Private Health Insurance [id number] 2022 Private Health Insurance [id number] 2022 Private Health Insurance [id number] 2022 Medicaid [id number] 1965 Unknown [id number] 2.16.84 0.1.664363.3.579.2.593 1965 Unknown [id number] 2.16.8 40.1.509275.3.579.2.1068 1965 Unknown [id number] 2.16. 840.1.016832.3.579.2.356 1965 Unknown [id number] 2.16. 840.1.270678.3.579.2.356 1965 Unknown [id number] 2.16. 840.1.347021.3.579.2.356 1965 Unknown [id number] 2.16.8 40.1.397367.3.579.2.1286 1965 Unknown [id number] 2.16.8 40.1.428250.3.579.2.1286 1965 Unknown [id number] 2.16.8 40.1.745116.3.579.2.1286 1965 Unknown [id number] 2.16.8 40.1.923918.3.579.2.128 1965 Unknown [id number] 2.16.8 40.1.996959.3.579.2.1286 1965 Unknown [id number] 2.16.8 40.1.136057.3.579.2.1286 1965 Unknown [id number] 2.16.8 40.1.400332.3.579.2.1286 1965 Unknown [id number] 2.16.8 40.1.112363.3.579.2.1286 1965 Unknown [id number] 2.16.8 40.1.195897.3.579.2.727 1965 Unknown [id number] 2.16.8 40.1.877836.3.579.2.727 1965 Unknown [id number] 2.16.8 40.1.649781.3.579.2.72 1965 Unknown [id number] 2.16.8 40.1.864002.3.579.2.72 1965 Unknown [id number] 2.16.8 40.1.075681.3.579.2.72 1965 Unknown [id number] 2.16.8 40.1.262203.3.579.2.72 1965 Unknown [id number] 2.16.8 40.1.158863.3.579.2 1965 Unknown [id number] 2.16.8 40.1.871754.3.579.2.72 1965 Unknown [id number] 2.16.8 40.1.324588.3.579.2 1965 Unknown [id number] 2.16.8 40.1.436179.3.579.2.727 1965 Unknown [id number] 2.16.8 40.1.121333.3.579.2.72 1965 Unknown [id number] 2.16.8 40.1.302389.3.579.2.72 1965 Unknown [id number] 2.16.8 40.1.170505.3.579.2.72 1965 Unknown [id number] 2.16.8 40.1.132333.3.579.2.72 1965 Unknown [id number] 2.16.8 40.1.242560.3.579.2.72 1965 Unknown [id number] 2.16.8 40.1.823538.3.579.2.727 1965 Unknown [id number] 2.16.8 40.1.722637.3.579.2.1286 1965 Unknown [id number] 2.16.8 40.1.837174.3.579.2.1286 1965 Unknown [id number] 2.16.8 40.1.384714.3.579.2.1244 1965 Unknown [id number] 2.16.8 40.1.903997.3.579.2.1244 1965 Unknown [id number] 2.16.8 40.1.946995.3.579.2.727 1965 Unknown [id number] 2.16.8 40.1.075590.3.579.2.727 1965 Unknown [id number] 2.16.8 40.1.854874.3.579.2.727 1959 Unknown [id number] 2.1 6.840.1.578971.19 Unknown [id number] 2.16.8 40.1.022006.3.579.2.531 Unknown [id number] 2.16.8 40.1.367534.3.579.2.531 Unknown [id number] 2.16.8 40.1.476137.3.579.2.531 Unknown [id number] 2.16.8 40.1.804208.3.579.2.531 Unknown [id number] 2.16.8 40.1.012100.3.579.2.531 Unknown [id number] 2.16.8 40.1.955327.3.579.2.531 Social History Date Type Detail Facility Start: 08-08-2023 Caffeine use Caffeine use [employer] Other Comment on above: 2 cups coffee, 4-6 c ups tea daily, occaional soda; qauit 07/2020; Start: 08-08-2023 Sex Assigned At F [facility] Start: 07-14-2020 End: 07-12-2023 Tobacco smoking status NHIS Smoker (finding) [facility] Start: 1965 Sex Assigned At Male F [facility] Start: 11-23-2022 End: 10-23-2023 Tobacco smoking status Heavy tobacco smoker (finding) [facility] Tobacco smoking status Never [facility] Start: 10-24-2023 Tobacco smoking stat us NHIS Ex-smoker [facility] End: 06-05-2020 History of tobacco use Cigarette Smoker [facility] Work Phone: Start: 10-24-2023 Tobacco use and exposure Smokeless tobacco non-user [facility] Work Phone: Start: 10-24-2023 Alcoholic beverage intake Lifetime non-drinker (finding) [facility] Work Phone: Start: 1965 Sex assigned at Not on file [facility] Work Phone: Start: 10-14-2023 End: [...] bilia ry stentMultiple peripheral artery stent, bare-metal ([id number] FDA Start: 07-14-2020 Functional Status Date Assessment Result Facility 10-23-2023 Functional Status No [facility] 06-02-2023 Functional Status N/A [facility] 02-14-2023 Functional Status N/A [facility] 01-30-2023 Functional Status N/A [facility] 11-23-2022 Functional Status N/A [facility] Clinical Notes 06-23-2021 to 01-08-2024 Raulito Inman MD - 10/24/2023 10:20 AM EDTPatient Instructions Note Date & Type Note Facility 01-08-2024 Note Patient Education - Text [place], [place] Cardiovascular PCI DISCHARGE INSTRUCTIONS Diet: ? Resume pre-procedure diet. ? Increase water intake the next 2 days to flush dye out of the body. Activity: If groin access: ? Limit activity today. Do not operate a vehicle, machinery or power tools. ? NO LIFTING OVER 10 POUNDS (a gallon of milk weighs 8 pounds) for 3 days. ? Limit climbing stairs, bending, squatting and stooping for 3 days. ? May resume driving in 24 hours. ? Let pain/discomfort guide your activity. If you are having pain, stop. ? No sexual activity for 1 week. ? Return to the Emergency Room if you have trouble breathing, walking or nausea and vomiting. Medications: ? Resume pre-procedure medication, unless otherwise directed. ? Hold the following medications for 48 hours post procedure: Actoplus Met Glucophage Glucophage XR Glucovance Avandamet Fortamet Apo-metformin Glycon Ady-metformin Glumetza Janumet Metaglip Riomet Glycomet ? Minimal pain, soreness and/or discomfort is expected. ? If you are prescribed an aspirin and/or antiplatelet (such as Plavix, Brilinta or Effient) do NOT stop taking these medications for any reason without talking to your strategic buyer Site Care: ? Do not remove dressing for 24 hours unless it becomes saturated, then replace. ? Keep site clean and dry; inspect site daily. ? Do not use any lotions, powders, or ointments at the groin or wrist site for 1 week. ? May shower 24 hours after the procedure. Clean site with soap and water. Pat dry and apply band aid. No tub baths, swimming or hot tubs for 3 days. Post Procedure: ? Soreness and tenderness to the site can last up to one week. ? Bruising may occur to site. ? A responsible adult should be with you for the first 24 hours after you arrive home. ? Keep follow-up appointment. ? Carry your stent card with you at all times. This provides information about your heart disease for any doctor who cares for you. ? No smoking for 24 hours as it increases the risk of developing blood clots. ? If you are interested in smoking cessation, contact [facility] at [phone], ext. [phone]. ? In the event you are unable to reach your physician, please call [facility] at [phone] and the sharples machine operator will assist you. Seek Medicare Care for: ? Bleeding: Apply continuous pressure to the site and Call 911. ? Should the arm or leg become cold, numb, blue or white call your physician immediately. ? Signs of infection are redness, warmth, swelling, getting more sore, colored drainage, fever or chills ? Chest pain ? Blood in your urine or stool ? Black tarry stools [facility] 01-08-2024 Note Progress Note-Physic byorn Procedure Airway Assessment: Class I: Visualization of the soft palate, fauces, uvula, anterior and posterior pillars Airway Abnormalities: none ASA Classification: ASA 3: A patient with severe systemic disease Risks/Benefits of IV Sedation: Have been explained IV Sedation Plan: _Patient agrees to IV sedation plan Assessment/Plan Ordered: hydrALAZINE, 10 mg = 0.5 mL, Injection, IV Push, q2hr PRN Other (see comment), Routine, Start date 01/08/24 16:00:00 EDT, Give for blood pressure of: SBP greater than 140 OR DBP greater than 90 if unable to give Lopressor., 01/08/24 16:00:00 EDT Basic Metabolic Panel Bedrest Cardiac Monitoring CBC w/ Auto Diff Communication Order Communication Order Discharge When Patient Meets Criteria eGFR Evaluate Need For Continued Telemetry Head of Bed Intake and Output Keep Limb Straight Neurological Assessment Notify Provider Notify Provider Notify Provider Notify Provider Vital Signs Oxygen - Wean Oxygen Saturation Saline Lock Removal Saline Lock When Drinking Well Site Check Site Check Site Check Up ad Senait Vital Signs Vital Signs Vital Signs [facility] Comment on above: Result Comment: Elec tronically Signed By: Simon HERRERA, Padmini Weathers\.br\Date and Time Signed: 01/08/24 16:02 EDT 10-24-2023 Note Sinus tachycardia Rightward axis Poor anterior R wave progression QTc 481 ms CPACS 10-24-2023 History of Present illness Narrative Subjective [...] Attestation By signing my name below, I, Helen Riley LPNibmaggie attest that this documentation has been prepared [...] 12:04:02 With:SOLEDAD HERRERA, Yeyo Blum, URL Address: [address] [place] [address]- When: Unknown [facility] 06-26-2023 Evaluation note Encounter Date Diagnosis Assessment Notes Jun, Hyperlipidemia (ICD-10 - E78.5) [facility] Other [id number] Hospital Discharge instructions Patient Education 06/02/2023 11:57:43 [...] urethra. Follow these instructions at home: Take pczv-itj-jmscgtm and prescription medicines only as told by [...] provider. Document Revised: 12/08/2021 Document Reviewed: 12/08/2021 [employer] Patient Education 2022 [employer]. Follow Up Care 06/01/2023 14:05:36 With:SOLEDAD HERRERA, Yeyo Blum, URL Address: [address] [place] [address]- When: Unknown [facility] 12-12-2023 Evaluation note* Encounter Date Diagnosis Assessment Notes Treatment Notes Treatment Clinical Notes May, 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) [facility] Other 11-24-2023 Evaluation note* Encounter Date Diagnosis Assessment Notes Treatment Notes Treatment Clinical Notes Apr, Diabetic nephropathy (ICD-10 - E11.21) [facility] Other 11-07-2023 Evaluation note* Encounter Date Diagnosis Assessment Notes Treatment Notes Treatment Clinical Notes Apr, Left arm pain (ICD-10 - M79.602) [facility] Other 11-02-2023 Evaluation note* Encounter Date Diagnosis [...] and to have his surgery as scheduled. 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 He was found to have developed [...] to continue to montior this at home. [facility] Other 10-09-2023 Note [id number] Discharge instructions Patient Education [...] including vitamins, herbs, eye drops, creams, and jipi-xyw-vchdbei medicines. Any problems you or family members [...] provider tells you to take them. Taking hdqi-yrb-sjhbjcu medicines, vitamins, herbs, and supplements. Surgery safety [...] provider. Document Revised: 02/15/2022 Document Reviewed: 02/15/2022 [employer] Patient Education 2022 [employer]. [facility]09-12-2023 Note [id number]:127[facility] 02-14-2023 [id number]:127[facility]08-28-2023 Hospital Discharge instructions Patient Education 01/30/2023 11:22:32 [...] including vitamins, herbs, eye drops, creams, and upek-oos-fexrjqk medicines. ?Whether you are or may be [...] provider. Document Revised: 02/02/2022 Document Reviewed: 12/25/2020 [employer] Patient Education 2022 [employer]. 01/30/2023 11:22:30 Cystoscopy Cystoscopy Cystoscopy is a [...] including vitamins, herbs, eye drops, creams, and gynu-etv-tpamsem medicines. Any problems you or family members [...] provider tells you to take them. Taking odpp-ibp-dbouajp medicines, vitamins, herbs, and supplements. Tests You [...] Follow these instructions at home: Medicines Take jhbh-zrt-ppxbypi and prescription medicines only as told by [...] provider. Document Revised: 02/02/2022 Document Reviewed: 01/01/2021 [employer] Patient Education 2022 [employer]. Follow Up Care 11/23/2022 13:02:56 With:SOLEDAD HERRERA, Yeyo Blum, URL Address: [facility] [address] , [place] [address]- [phone] When: Unknown Comments:sched cysto/uros [facility] 08-15-2023 Evaluation note* Encounter Date Diagnosis Assessment Notes Treatment Notes Treatment Clinical Notes Jan, Diabetic nephropathy (ICD-10 - E11.21) [facility] Other 06-29-2023 Evaluation note* Encounter Date Diagnosis [...] reviewed. 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 [facility] Other 06-21-2023 Hospital Discharge instructions Patient Education [...] provider. Document Revised: 08/11/2021 Document Reviewed: 05/07/2021 [employer] Patient Education 2021 [employer]. Follow Up Care 09/14/2022 14:23:26 With:SOLEDAD HERRERA, Yeyo Blum, URL Address: [facility] [address], [place] [address]- When: Unknown [facility] 05-05-2023 Evaluation note* Encounter Date Diagnosis Assessment Notes Treatment Notes Treatment Clinical Notes October, Erectile dysfunction, unspecified erectile dysfunction type (ICD-10 - N52.9) [facility] Other 04-19-2023 Evaluation note* Encounter Date Diagnosis Assessment Notes Treatment Notes Treatment Clinical Notes Sep, 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) [facility] Other 04-12-2023 Evaluation note* Encounter Date Diagnosis Assessment Notes Treatment Notes Treatment Clinical Notes Sep, 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) Sep, 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) [facility] Other 03-20-2023 Evaluation note* Encounter Date Diagnosis Assessment Notes Treatment Notes Treatment Clinical Notes Aug, Diabetic nephropathy (ICD-10 - E11.21) [facility] Other 03-03-2023 Evaluation note* Encounter Date Diagnosis Assessment Notes Treatment Notes Treatment Clinical Notes Aug, Pain in right leg (ICD-10 - M79.604) [facility] Other 03-02-2023 Evaluation note* Encounter Date Diagnosis Assessment Notes Treatment Notes Treatment Clinical Notes Aug, Pain in right leg (ICD-10 - M79.604) [facility] Other 02-20-2023 Evaluation note* Encounter Date Diagnosis Assessment Notes Treatment Notes Treatment Clinical Notes Jul, Intractable episodic headache, unspecified headache type (ICD-10 - R51.9) [facility] Other 02-14-2023 Evaluation note* Encounter Date Diagnosis Assessment Notes Treatment Notes Treatment Clinical Notes Jul, Acute intractable headache, unspecified headache type (ICD-10 - R51.9) [facility] Other 02-08-2023 Evaluation note* Encounter Date Diagnosis Assessment Notes Treatment Notes Treatment Clinical Notes Jul, Headache (ICD-10 - R51.9) [facility] Other 01-30-2023 Evaluation note* Encounter Date Diagnosis [...] patient encourged to follow through with Doris Barnse as scheduled tomorrow 07/05/22. Jun, Hypertensive chronic [...] medication and we will continue to monitor. [facility] Other 12-21-2022 Evaluation note* Encounter Date Diagnosis Assessment Notes Treatment Notes Treatment Clinical Notes May, Diabetic nephropathy (ICD-10 - E11.21) [facility] Other 11-21-2022 Evaluation note* Encounter Date Diagnosis Assessment Notes Treatment Notes Treatment Clinical Notes Apr, Diabetic nephropathy (ICD-10 - E11.21) [facility] Other 11-15-2022 Evaluation note* Encounter Date Diagnosis Assessment Notes Treatment Notes Treatment Clinical Notes Apr, Pain in right leg (ICD-10 - M79.604) [facility] Other 10-18-2022 Evaluation note* Encounter Date Diagnosis Assessment Notes Treatment Notes Treatment Clinical Notes Mar, Diabetic nephropathy (ICD-10 - E11.21) [facility] Other 09-13-2022 Evaluation note* Encounter Date Diagnosis Assessment Notes Treatment Notes Treatment Clinical Notes Feb, Hypertensive chronic kidney disease with stage 1 through stage 4 chronic kidney disease, or unspecified chronic kidney disease (ICD-10 - I12.9) [facility] Other 09-13-2022 Evaluation note* Encounter Date Diagnosis [...] scheduled. 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 Feb, Pain in right leg [...] Noted upon review of blood work results. [facility] Other 08-19-2022 Evaluation note* Encounter Date Diagnosis Assessment Notes Treatment Notes Treatment Clinical Notes Jan, Diabetic nephropathy (ICD-10 - E11.21) [facility] Other 08-17-2022 Evaluation note* Encounter Date Diagnosis Assessment Notes Treatment Notes Treatment Clinical Notes Jan, Diabetic nephropathy (ICD-10 - E11.21) [facility] Other 07-21-2022 Evaluation note* Encounter Date Diagnosis Assessment Notes Treatment Notes Treatment Clinical Notes Dec, Diabetic nephropathy (ICD-10 - E11.21) [facility] Other 06-22-2022 Evaluation note* Encounter Date Diagnosis Assessment Notes Treatment Notes Treatment Clinical Notes Nov, Diabetic nephropathy (ICD-10 - E11.21) [facility] Other 05-23-2022 Evaluation note* Encounter Date Diagnosis Assessment Notes Treatment Notes Treatment Clinical Notes October, Diabetic nephropathy (ICD-10 - E11.21) [facility] Other 05-17-2022 Evaluation note* Encounter Date Diagnosis [...] E11.59) October, 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 Inman. For this October, Other He did quit smoking since July 2020 [facility] Other 05-16-2022 Evaluation note* Encounter Date Diagnosis Assessment Notes Treatment Notes Treatment Clinical Notes October, Hypertensive chronic kidney disease with stage 1 through stage 4 chronic kidney disease, or unspecified chronic kidney disease (ICD-10 - I12.9) October, Stage 3 chronic kidney disease, unspecified whether stage 3a or 3b CKD (ICD-10 - N18.30) [facility] Other 05-06-2022 Evaluation note* Encounter Date Diagnosis Assessment Notes Treatment Notes Treatment Clinical Notes October, Pain in right leg (ICD-10 - M79.604) October, Pain in left leg (ICD-10 - M79.605) [facility] Other 04-20-2022 Evaluation note* Encounter Date Diagnosis Assessment Notes Treatment Notes Treatment Clinical Notes Sep, Diabetic nephropathy (ICD-10 - E11.21) [facility] Other 04-19-2022 Evaluation note* Encounter Date Diagnosis Assessment Notes Treatment Notes Treatment Clinical Notes Sep, Anxiety (ICD-10 - F41.9) Sep, Hypertensive chronic kidney disease with stage 1 through stage 4 chronic kidney disease, or unspecified chronic kidney disease (ICD-10 - I12.9) [facility] Other 03-07-2022 Evaluation note* Encounter Date Diagnosis Assessment Notes Treatment Notes Treatment Clinical Notes Aug, Anxiety (ICD-10 - F41.9) [facility] Other 02-22-2022 Evaluation note* Encounter Date Diagnosis [...] 12 pound weight loss from last visit. [facility] Other 01-19-2022 Evaluation note* Encounter Date Diagnosis Assessment Notes Treatment Notes Treatment Clinical Notes Jun, Diabetic nephropathy (ICD-10 - E11.21) [facility] Other Evaluation + Plan note Future Appointments Appointment Date:12/21/2022 11:00:00 AM Scheduled Provider: Location:[facility] Appointment Type:URO Nurse Visit Appointment Date:01/30/2023 10:30:00 AM Scheduled Provider:[facility]eyo R[facility]E [facility] Office [facility] Evaluation + Plan note Future Appointments Appointment Date:01/30/2023 10:15:00 AM Scheduled Provider:Yeyo ROWE MD [facility] Evaluation + Plan note Future Appointments Appointment Date:02/01/2023 10:00:00 AM Scheduled Provider: Location:[facility] Appointment Type:Urology CALL PAT FT Appointment Date:02/08/2023 09:00:00 AM Scheduled Provider: Location:[facility] Appointment Type:Urology FT Appointment Date:02/14/2023 09:15:00 AM Scheduled Provider: Location:[facility] Appointment Type:Urology FT [facility] evaluation + Plan note Future Appointments Appointment Date:02/14/2023 09:15:00 AM Scheduled Provider: Location:[facility] Future App[facility]ments Appointment Date:03/20/2023 08:45:00 AM Scheduled Provider: Location:[facility] Appointment Type:URO Nurse Visit Appointment Date:04/05/2023 08:00:00 AM Scheduled Provider:Yeyo ROWE MD Location:[facility] Appointment Type:URO [facility] Future Appointments Appointment Date:05/03/2023 08:45:00 AM Scheduled Provider:Yeyo ROWE MD Location:[facility] Appointment Type:URO Office Visit [facility] Evaluation + Plan note Future Appointments Appointment Date:07/03/2023 10:15:00 AM Scheduled Provider:Yeyo ROWE MD Location:[facility] Appointment Type:[facility]O [facility] Future Appointments Appointment Date:10/23/2023 09:30:00 AM Scheduled Provider:Padmini Montes [facility] noteNo InformationNorth [facility] Other Evaluation noteNo assessment information available [facility] Work Phone: Evaluation note* Diagnosis History of PTCA Postsurgical percutaneous transluminal coronary angioplasty status Hyperlipidemia, unspecified hyperlipidemia type Encounter for pre-operative cardiovascular clearance Former smoker Personal history of tobacco use, presenting hazards to health documented in this encounter [facility] Work Phone: History general Narrative - [...] hydrocele repair 08/2016 Surgical History cardiac cath [facility] 04/02/18 Surgical History Lt LE iliac DSA, angioplasty & stenting 09/27/2018 Surgical History Left Angiogram with one stent - Dr. Boss 07/2020 Hospitalization History Deep Depression, Anxiety; [facility] 11-11-10 Hospitalization History [facility] hypoxemia and hyper capnic respirtory failure 11/11/16 Hospitalization History chest pain [facility] 04/02/18 [facility] Other History of Present illness NarrativeReturns in [...] impact on blood pressure and diabetes [facility] 250 [facility] Work Phone: History of [...] medication regimen. He denies medication side effects. [facility] 600 DO Work Phone: [...] medication regimen. He denies medication side effects. -[facility] 250 DO Work Phone: Hospital course Narrative No data available for this section [facility] Hospital Discharge instructions No data available for this section [facility] Progress note No data available for this section [facility] Chief Complaint SOLOMON FELDMAN is being seen [...] ECG 12 Lead Raulito Inman MD [address], [address] [address] Referral ID Status Reason Start Date Expiration Date V isits Requested Visits Authorized [id number] Authorized 10/24/2023 10/23/2024 1 1 Specialty Diagnoses / Procedures Referred By Brett mandujano Referred To Contact Cardiology Diagnoses History of PTCA Procedures Follow Up In Cardiology Raulito Inman MD [address], [address] [address] Referral ID Status Reason Start Date Expiration Date V isits Requested Visits Authorized [id number] Authorized 10/24/2023 10/23/2024 1 1 Reason CANCELLED consult and treat; previous patient of Dr. Sharpe last seen in 2020; persisting intractable headaches Diagnosis 1 Acute intractable he adache, unspecified headache type (R51.9) [facility] Referring Provider First Name Jenaro Referring Provider Last Name Syed Referring Provider Specialty Family Jono hunter Referred Organization [facility] Referred Provider Lyssa Sharpe Referred Address [address] [facility],[place], [place],[address] Referred Provider Specialty Neurology Referral Priority Routine [facility] 10:19:08 AM >Received today. [facility] request us to fill out their form and attach to Referral and send it to them and they will call patient to schedule. Referral was sent P2P and fax insurance card since it would not let me attach to referral [facility] 07/28/2022 10:23:53 AM >Spoke with Marilynn at [facility] and patient has been scheduled and cancelled the appt for 07/26/22 [facility] 07/28/2022 10:27:39 AM >Telephone encounter was sent Reason 03/31/22 @ 2:45pm consult and treat Diagnosis 1 Type 2 diabetes bobby itus with circulatory disorder (E11.59) Referral Organization [facility] Keanu Referring Provider First Name Jenaro Referring Provider Last Name Syed Referring Provider Specialty [facility] Jono hunter Referred Organization [facility] Referred Provider Doris Barnes Referred Address [address],[place], [place],[address] Referred Provider Specialty Nurse Jono calderon Referral Priority Routine Referral Appointment Date 2022-03-31 General [facility] 02:28:10 PM >Received today and sent P2P [facility] 02/16/2022 07:50:21 AM >Patient has been [...] ECG 12 Lead Raulito Inman MD [address] [address] Referral ID Status Reason Start Date Expiration Date V isits Requested Visits Authorized [id number] Authorized 10/24/2023 10/23/2024 1 1 Care Teams (unrecognized sec tion and content) Team Status: Active Member Role Status Dates Jenaro Lynch DO Primary Care Provider Active Team Status: Inactive Member Role Status Dates Jenaro Lynch DO Primary Care Provider Active Shana Mclaughlin PA-C Attending Provider Active Team Status: Inactive Member Role Status Dates Jenaro Lynch DO Primary Care Provider Active Jenaro Lynch DO [facility] Attending Provider Active Team Status: Inactive Member Role Status Dates Jenaro Lynch DO Primary Care Provider Active Sta rt: July 12, 2023 End: July 12, 2023 Nancy Wilson MD Emergency Provider Active St art: July 12, 2023 End: July 12, 2023 Team Status: Active Member Role Status Dates Jenaro Lynch DO Primary Care Provider Active Sta rt: July 26, 2023 AHSLI Escobar Attending Provider Active Start: July 26, [...] 21, 2023 End: September 21, 2023 Paula Soto DPM MS Attending Provider Active Start: September [...] Status: Inactive Member Role Status Dates Paula Soto DPM MS Attending Provider Active Start: October [...] Status: Inactive Member Role Status Dates Paula Soto DPM MS Attending Provider Active Start: October 05, 2023 End: October 05, 2023 Team Status: Active Member Role Status Dates Truman Bryant MD Attending Provider Active Sta rt: October 06, 2023 Pharmaceutical Assistant Relationship Specialty Start Date End Date [...] Status: Inactive Member Role Status Dates Paula Soto DPM MS Attending Provider Active Start: December [...] DATE CREATED AUTHOR AUTHOR'S ORGANIZ ATION 01/27/2023 [facility] DATE CREATED AUTHOR AUTHOR'S ORGANIZ ATION 02/16/2023 [facility] DATE CREATED AUTHOR AUTHOR'S ORGANIZ ATION 02/16/2023 [facility] DATE CREATED AUTHOR AUTHOR'S ORGANIZ ATION 10/22/2023 [facility] DATE CREATED AUTHOR AUTHOR'S ORGANIZ ATION 11/16/2023 [facility] DATE CREATED AUTHOR AUTHOR'S ORGANIZ ATION 11/25/2023 [facility] DATE CREATED AUTHOR AUTHOR'S ORGANIZ ATION 11/29/2023 [place] [facility] DATE CREATED AUTHOR AUTHOR'S ORGANIZ ATION 12/24/2023 [facility] DATE CREATED AUTHOR AUTHOR'S ORGANIZ ATION 01/02/2024 [facility] DATE CREATED AUTHOR AUTHOR'S ORGANIZ ATION 01/05/2024 [facility] DATE CREATED AUTHOR AUTHOR'S ORGANIZ ATION 01/10/2024 [facility] FOR RECORDS PERTAINING TO PATIENTS WHO ARE [...] BE BASED ON THE PRIMARY CLINICAL RECORDS. [facility]. provides no warranty or guarantee of the accuracy or completeness of information in this document.
== END 2024-01-12 10:21 | disposition home or self-care (01) ==
LOC: WC 10:20
PROVIDERS: PCP Family Medicine; Visit Provider Podiatrist Foot & Ankle Surgery
DX: T87.89 Other complications of amputation stump (principal)
CPT/HCPCS: G0463

== ENCOUNTER 2024-01-15 16:18 | Outpatient (OUT) | payer OTHER, SELFPAY | END 2024-01-15 16:19 | disposition home or self-care (01) | LOC: WC 16:18 | PROVIDERS: PCP Family Medicine; Visit Provider Physician Assistant | DX: T87.89 Other complications of amputation stump (principal) | CPT/HCPCS: G0463 ==

== ENCOUNTER 2024-02-01 10:10 | Outpatient (OUT) | payer OTHER, SELFPAY ==
[2024-02-01 11:06] LABS: Basophils Absolute Auto 0.1 10^3/uL (0.0-0.1); Basophils Percent Auto 1.2 % (0.2-2.0); Eosinophils Absolute Auto 0.2 10^3/uL (0.0-0.7); Eosinophils Percent Auto 2.9 % (0.9-7.0); Hematocrit 28.7 % (42.0-54.0); Hemoglobin 8.7 g/dL (14.0-18.0); Immature Granulocytes Abs Auto 0.06 10^3/uL (0.00-0.03); Immature Granulocytes Pct Auto 0.7 % (0.0-0.5); Lymphocytes Absolute Auto 1.8 10^3/uL (1.2-3.8); Lymphocytes Percent Auto 21.5 % (20.5-60.0); Mean Corpuscular HGB Conc 30.3 g/dL (29.9-35.2); Mean Corpuscular Hemoglobin 22.3 pg (25.9-34.0); Mean Corpuscular Volume 73.6 fL (80.0-94.0); Mean Platelet Volume 10.4 fL (9.5-13.5); Monocytes Absolute Auto 0.7 10^3/uL (0.3-0.8); Monocytes Percent Auto 8.7 % (1.7-12.0); Neutrophils Absolute Auto 5.4 10^3/uL (1.4-6.5); Platelet Count 397 10^3/uL (150-450); Red Cell Distribution Width 16.4 % (11.0-15.0); White Blood Count 8.3 10^3/uL (4.0-11.0)
[2024-02-01 11:14] LABS: Anion Gap 14.6; BUN Creatinine Ratio 12.3; Carbon Dioxide 26.7 mmol/L (21.0-32.0); Chloride 100 mmol/L (98-107); Estimated GFR (African America 41 (>=60); Estimated GFR (Non-African Ame 34 (>=60); Glucose 268 mg/dL (74-106); Potassium 4.3 mmol/L (3.5-5.1); Sodium 137 mmol/L (136-145)
[2024-02-01 11:20] LABS: INR 1.02; Partial Thromboplastin Time 25.3 sec (22.3-36.2); Prothrombin Time 10.8 sec (9.0-11.6)
== END 2024-02-01 10:11 | disposition home or self-care (01) ==
LOC: PST 10:12
PROVIDERS: PCP Family Medicine; Visit Provider Student in an Organized Health Care Education/Training Program
DX: Z01.812 Encounter for preprocedural laboratory examination (principal); I70.261 Atherosclerosis of native arteries of extremities with gangrene, right leg
CPT/HCPCS: 80048; 85025; 85610; 85730

== ENCOUNTER 2024-02-08 12:49 | Day surgery (SDC) | payer OTHER, SELFPAY ==
[2024-02-01 10:23] VITALS: BP 110/71; PULSE 99; TEMP 36.3; O2SAT 100; BMI 26.9
[2024-02-08 13:27] VITALS: BP 135/79; PULSE 110; TEMP 36.1; O2SAT 100; BMI 26.9
[2024-02-08 13:29] LABS: Basophils Absolute Auto 0.1 10^3/uL (0.0-0.1); Basophils Percent Auto 0.7 % (0.2-2.0); Eosinophils Absolute Auto 0.3 10^3/uL (0.0-0.7); Eosinophils Percent Auto 3.1 % (0.9-7.0); Hematocrit 29.8 % (42.0-54.0); Hemoglobin 9.1 g/dL (14.0-18.0); Immature Granulocytes Abs Auto 0.04 10^3/uL (0.00-0.03); Immature Granulocytes Pct Auto 0.4 % (0.0-0.5); Lymphocytes Absolute Auto 1.6 10^3/uL (1.2-3.8); Lymphocytes Percent Auto 15.6 % (20.5-60.0); Mean Corpuscular HGB Conc 30.5 g/dL (29.9-35.2); Mean Corpuscular Hemoglobin 21.9 pg (25.9-34.0); Mean Corpuscular Volume 71.8 fL (80.0-94.0); Mean Platelet Volume 10.7 fL (9.5-13.5); Monocytes Absolute Auto 0.8 10^3/uL (0.3-0.8); Monocytes Percent Auto 7.5 % (1.7-12.0); Neutrophils Absolute Auto 7.4 10^3/uL (1.4-6.5); Neutrophils Percent Auto 72.7 % (43.0-75.0); Platelet Count 322 10^3/uL (150-450); Red Blood Count 4.15 10^6/uL (4.70-6.10); Red Cell Distribution Width 16.3 % (11.0-15.0); White Blood Count 10.1 10^3/uL (4.0-11.0)
[2024-02-08 13:37] LABS: Anion Gap 14.1; BUN Creatinine Ratio 11.4; Calcium 9.4 mg/dL (8.5-10.1); Carbon Dioxide 28.9 mmol/L (21.0-32.0); Chloride 99 mmol/L (98-107); Estimated GFR (African America 46 (>=60); Estimated GFR (Non-African Ame 38 (>=60); Glucose 184 mg/dL (74-106); Sodium 138 mmol/L (136-145)
[2024-02-08 13:50] LABS: INR 1.02; Partial Thromboplastin Time 25.6 sec (22.3-36.2); Prothrombin Time 10.8 sec (9.0-11.6)
[2024-02-08] MEDS: 0.9 % SODIUM CHLORIDE 1,000 ML 50 ML IV (13:55)
[2024-02-08] MEDS: CLINDAMYCIN PHOSPHATE/D5W 900 MG/50 ML PREMIX 100 MG IV (13:56)
--- NOTE | 2024-02-08 14:40 | PC.NURSE ---
pts surgery cancelled per due to pt being on Plavix until morning of surgery and pts hgb is 9.1. and both spoke with pts family regarding the risks of surgery and they agree to reschedule the procedure for a late date.
== END 2024-02-08 14:40 | disposition home or self-care (01) ==
PROVIDERS: Anesthesiology; PCP Family Medicine; Visit Provider Student in an Organized Health Care Education/Training Program
DX: I70.261 Atherosclerosis of native arteries of extremities with gangrene, right leg (principal); Z53.8 Procedure and treatment not carried out for other reasons
CPT/HCPCS: 27880; 36415; 80048; 80053; 85025; 85610; 85730; 86850; 86900; 86901; J0736

== ENCOUNTER 2024-04-12 17:14 | Emergency (ER) | payer OTHER, SELFPAY ==
--- OUTSIDE RECORDS SUMMARY | 2024-04-12 17:23 | XMS_ITS | CCD ---
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 Jenaro Orona Primary Care UnavailDolores Vaughn Attending Unavailable Dolores Pickard Attending Unavailable Dolores Pickard Referring Unavailable Syed, Dr. Jenaro Orona Primary Care UnavailDolores Vaughn Attending Unavailable Dolores Pickard Referring Unavailable Syed, Dr. Jenaro Orona Primary Care Unavailmaría Inman II, Dr. Raulito rOona Referring Unavailable Syed, Dr. Jenaro Orona Primary Care Unavailmaría Inman II, Dr. Raulito Orona Attending Unavailable DO Jenaro Lynch Primary Care Provider MD Nancy Wilson Emergency Provider DO Jenaro Lynch Primary Care Provider MD Nancy Wilson Emergency Provider [phone] JERARDO Mclaughlin Attending Provider JERARDO Mclaughlin Referring Provider LINDSEY Soto Attending Provider [phone] DO Jenaro Lynch Primary Care Provider [phone] Jenaro Lynch DO Primary Care Provider [phone] SIMONALBERT PENNINGTONAMED F Attending Unavailable PAULA SOTO Referring Unavailable SIMONPADMINI F Admitting Unavailable SIMON, PADMINI Rodriguez Attending Unavailable ONLY), IP [facility] (INPATIENT Consult ing Unavailable DERISO, ROSIE C Referring Unavailable MAAME RUCKER Referring Unavailable DERWILLIAM, ROSIE Snehal Referring Unavailable DO Jenaro Lynch Primary Care Provider BERNARD DE LA CRUZ Referring Unavailable JENARO LYNCH Primary Care Unavailable SimonPadmini pennington FMary Admitting Unavailable SimonPadmini pen[place] FMary Attending Unavailable Padmini Montes FMary Referring Unavailable MD Elan Antonio Attending Unavaila ble Padmini Montes Consulting Unavailable SimonPadmini [place] Consulting Unavailable SimonPadmini [place] Consulting Unavailable MD Padmini Montes Admitting Unavailable MD Padmini Montes Consulting Unavailable MD Padmini Montes Attending Unavailable MD Padmini Montes Referring Unavailable SimonPadmini Consulting Unavailable SimonPadmini penning[place] FMary Consulting Unavailable SimonPadmini penning[place] FMary Admitting Unavailable SimonPadmini [place] FMary Consulting Unavailable SimonPadmini [place] FMary Attending Unavailable SimonPadmini [place] FMary Referring Unavailable ROWEYeyo Attending Unavailable Yeyo ROWE Attending Unavailable MD Padmini Montes Admitting Unavailable MD Padmini Montes Attending Unavailable NONE, XXXX Referring Unavailable MD Padmini Montes Admitting Unavailable MD Padmini Montes Attending Unavailable MD Padmini Montes Referring Unavailable ROWE, Yeyo R Attending Unavailable ROWE, Yeyo R Attending Unavailable ROWE, Yeyo R Referring Unavailable ROWE, Yeyo R Attending Unavailable ROWE, Yeyo R Attending Unavailable ROWE, Yeyo R Attending Unavailable ROWE, Yeyo R Attending Unavailable ROWE, Yeyo R Attending Unavailable ROWE, Yeyo R Attending Unavailable Raulito Gilliland Attending Unavailable MD Padmini Montes Referring Unavailable Simon, MD Padmini Weathers Admitting Unavailable Simon, MD Padmini Weathers Attending Unavailable Simon, MD Padmini Weathers Referring Unavailable Simon, MD Padmini Weathers Admitting Unavailable Simon, MD Padmnii Weathers Attending Unavailable Yeyo ROWE Attending Unavailable Simon, MD Padmini Weathers Admitting Unavailable Simon, MD Padmini Weathers Attending Unavailable Simon, MD Padmini Weathers Referring Unavailable Simon, MD Padmini Rodriguez. Admitting Unavailable Simon, MD Padmini Weathers Attending Unavailable Simon, MD [place] F. Referring Unavailable Simon, Albertamed F. Admitting Unavailable Simon, Mohamed F. Consulting Unavailable Simon, Mohamed F. Referring Unavailable Raulito Gilliland Attending Unavailable Simon, Albertamed F. Consulting Unavailable Simon, Mohamed F. Consulting Unavailable LINDSEY Soto Attending Provider [phone] MD Kait Dan Emergency Provider DO Jenaro Lynch Primary Care Provider MD João Powell Admit Provider MD João Powell Attending Provider MD Kait Dan Emergency Provider DO Jenaro Lynch Primary Care Provider MD João Powell Admit Provider MD João Powell Attending Provider MD Lyssa Sharpe Other Provider [phone] MD Mike Burleson Other Provider [phone] SIMON, MOHAMED F Attending Unavailable SIMON, ALBERTAMED F Attending Unavailable LINDSEY Soto Attending Provider [phone] MD Kait Dan Emergency Provider DO Jenaro Lynch Primary Care Provider MD João Powell Admit Provider MD João Powell Attending Provider MD Lyssa Sharpe Other Provider MD Mike Burleson Other Provider DO Scottie Anh Emergency Provider DO Luther Dozier Other Provider MD Job James Other Provider MD Remberto Ervin Attending Provider Unavailable Primary Care Provider UnavailRAULITO Negro Attending Unavailable KUNS, JENARO P Primary Care Unavailable BERNARD DE LA CRUZ Attending Unavailable KUNS, JENARO P Primary Care Unavailable Yeyo ROWE Attending Unavailable MD Elan Antonio Attending Unavaila ble Highlander, Paula Hooker Admitting Unavailable Highlander, Paula Hooker Attending Unavailable Highlander, Paula Hooker Attending Unavailable Kuns, Jenaro Primary Care Unavailable Highlander, Paula Hooker Admitting Unavailable Highlander, Paula Hooker Attending Unavailable Highlander, Paula Hooker Admitting Unavailable Kuns, Jenaro Primary Care Unavailable Lowe, Shana Admitting Unavailable Lowe, Shana Attending Unavailable Lowe, Shana Referring Unavailable Andre, Mohamad Admitting Unavailable Andre, Elained Attending Unavailable Lyssa Sharpe Consulting Unavailable Kuns, Jenaro Primary Care Unavailable Mike Burleson Consulting Unavailable Kuns, Jenaro Primary Care Unavailable Luther Dozier Consulting Unavailable Andre, Mohamad Admitting Unavailable Remberto Ervin Attending Unavailable Job James Consulting Unavailable Mike Burleson Consulting Unavailable Jetts, Jenaro Primary Care Unavailable Nancy Wilson Admitting Unavailable Nancy Wilson Attending Unavailable Highlander, Paula Hooker Attending Unavailable Highlander, Paula Hooker Admitting Unavailable DO Anh Rubin Emergency Provider DO Luther Dozier Other Provider MD Job James Other Provider [phone] MD Remberto Ervin Attending Provider Allergies Allergy Classification Reported Allergen(s) Allergy Type Date of Onset Reaction(s) Facility (20 sources) natural latex rubber; Translations: [LATEX] Allergy to substance (finding) 03-27-20 Itching (finding), Eruption of skin (disorder) [facility] (20 sources) Penicillins; Translations: [Penicillins] Allergy to drug (finding) 11-05-19 14 Anaphylactoid reaction (disorder) [facility] (20 sources) Acetaminophen / oxyCODONE Drug Allergy 03-14-20 17 vomiting [facility] Other (20 sources) tamsulosin; Translations: [TAMSULOSIN] Drug Allergy 07-14-19 21 hives [facility] (20 sources) PENICIILIN Propensity to adverse reactions SWELLING OF AIRWAY [facility] Other (20 sources) Acetaminophen; Translations: [ACETAMINOPHEN] Drug Allergy 07-14-19 21 Vomiting [facility] (17 sources) oxyCODONE; Translations: [Oxycodone] Drug Allergy 02-08-20 17 Vomiting [facility] (1 source) Penicillins Drug allergy (disorder) 09-23-19 14 [facility] Rep[facility] (20 sources) Penicillin G; Translations: [penicillin G benzathine] Drug Allergy [facility] (8 sources) Penicillin Drug Allergy anaphylaxis [facility] Other (6 sources) Latex Allergy to substance 03-27-20 23 Unknown, Dermatitis, Itching, Rash [facility] (6 sources) Penicillins Drug Allergy 11-05-19 14 Anaphylaxis, Hives [facility] Work Phone: (4 sources) Isosorbide; Translations: [ISOSORBIDE MONONITRATE] Drug Allergy 08-05-19 15 [facility] (4 sources) Isosorbide Dinitrate Drug Allergy 08-05-19 15 Other (See Comments) [employer] [facility] (4 sources) Propoxyphene Drug Allergy 03-14-20 17 [facility] (1 source) Latex Drug allergy (disorder) 03-21-20 [facility] Repository (1 source) Penicillins Drug allergy (disorder) 03-21-20 [facility] Repository (1 source) tamsulosin Drug Allergy 07-31-19 24 [facility] Repository Medications Current Medications Medication Drug Class(es) Dates Sig (Normalized) Sig (Original) acetaminophen 325 mg oral tablet (9 sources) Start: 03-13-2024 take 2 tablets by mouth every eight hours Acetaminophen (Tylenol) 325 mg Tablet Active 650 MG PO Q8H 0 March 13, 2024 12:00am take 2 tablets by mo uth every eight hours as needed for pain and fever acetaminophen (TYLENOL EXTRA STRENGTH) 5 00 mg tablet Take 2 tablets (1,000 mg total) by mouth every 8 (eight) hours as needed for pain or fever. Active acetaminophen (T ylenol) 500 mg tablet Take by mouth every 8 hours if needed for mild pain (1 - 3). Active acetaminophen 325 mg / oxyCODONE hydrochloride 5 mg oral tablet (1 source) Opioid Agonist Start: 09-22-2023 take 1 tablet by mouth every four hours as needed oxyCODONE-acetaminophen (Percocet) 5-325 mg tablet Take 1 tablet by mouth every 4 hours if needed. 09/22/2023 Active [id number] 200 actuat albuterol 0.09 mg/actuat metered dose inhaler (20 sources) beta2-Adrene rgic Agonist Start: 11-23-2022 take 2 puff(s) by inhalation every four hours as needed albuterol (PROAIR HFA) 90 mcg/actuation inhaler Inhale 2 puffs every 4 (four) hours as needed. 11/23/2022 Active Start: 11-23-2022 ProAir HFA Inh alation, q6hr Start Date: 11/23/22 Status: Ordered Start: 06-28-2019 take 1 puff(s) by in halation every six hours Albuterol Sulfate (Proair Hfa) 90 mcg/actuation Hfa Aerosol Inhaler Active 2 PUFF INHALATION Every 6 hours June 28, 2019 1:00am Start: 06-28-2019 Start: 06-28-2019 take 1 puff(s) by in [...] Active take 2 puff(s) by in halation in the morning albuterol (PROVENTIL HFA;VENTOLIN HFA) 90 mcg/actuation inhaler Inhale 2 puffs in the morning and 2 puffs before bedtime. Active take 2 puff(s) by in halation [...] 0 Refills: 0 Ordered: 26-Oct-2021 DO Active ascorbic acid 500 mg oral tablet (1 source) Vitamin C take 1 tablet by mouth once daily ascorbic acid (Vitamin C) 500 mg tablet Take 1 tablet (500 mg) by mouth once daily. Active aspirin 81 mg delayed release oral tablet (20 sources) Platelet Aggregation Inhibitor, Nonsteroidal Anti-inflammatory Drug Start: 06-16-2023 take 1 tablet by mouth in the morning aspirin 81 mg Take 1 tablet (81 mg total) by mouth in the morning. 10/06/2023 Active Start: 06-22-2021 take 1 tablet by [...] 0 Start Date: 07/10/14 Status: Ordered atorvastatin 40 mg oral tablet (20 sources) HMG-CoA Reductase Inhibitor Start: 03-13-2024 take 1 tablet by mouth once daily in the evening Atorvastatin (Lipitor) 40 mg tablet Active 40 MG PO Every evening March 13, 2024 12:00am Start: 08-08-2019 End: 03-13-2024 take 80 mg by mouth once daily Atorvastatin Discontinu ed 80 MG PO Daily August 08, 2019 1:00am March 13, 2024 1:06pm Start: 07-10-2014 End: 07-24-2019 take 80 mg [...] and prn Sep, Active 120 actuat budesonide 0.08 mg/actuat / formoterol fumarate 0.0045 mg/actuat metered dose inhaler (14 sources) Corticosteroid, beta2-Adrenergic Agonist Start: 03-13-2024 take 1 puff(s) by inhalation twice daily Budesonide-Formoterol (Symbicort) 80-4.5 mcg/actuation Hfa Aerosol Inhaler Active 2 PUFF INHALATION Twice daily 0 March 13, 2024 12:00am Start: 03-13-2024 Start: 07-12-2023 End: 03-03-2024 Budesonide-Formoterol (Symbi leonid) 160-4.5 mcg/actuation HFA aerosol inhaler Discontinued 1 INH INHALATION Twice daily July 12, 2023 1:00am March 03, 2024 2:28pm Start: 07-12-2023 End: 03-03-2024 clarithromycin 500 mg oral tablet (6 sources) Macrolide Antimicrobial Start: 08-02-2021 take 1 tablet by mouth every twelve hours Clarithromycin 500 MG 1 tablet Orally every 12 hrs for 10 day(s) Jul, Active clopidogrel 75 mg oral tablet (20 sources) [id number] Platelet Inhibitor Start: 03-08-2024 take 75 mg by mouth once daily Clopidogrel Active 75 MG PO Daily March 08, 2024 12:00am Start: 07-10-2014 End: 03-06-2024 take 1 tablet by mouth once daily Clopidogrel (Plavix) 75 mg tablet Discontinued 75 MG PO Daily January 03, 2024 3:03pm March 06, 2024 12:39pm DULoxetine 30 mg delayed release oral capsule (9 sources) Serotonin and Norepinephrine Reuptake Inhibitor Start: 03-13-2024 take 30 mg by mouth once daily at bedtime Duloxetine Active 30 MG PO Daily at bedtime March 13, 2024 12:00am take 1 capsule by mouth in the m orning DULoxetine (CYMBALTA) 60 mg capsule Take 1 capsule (60 mg total) by mouth in the morning. Active empagliflozin 10 mg oral tablet (20 [...] Refills(s) 0 Start Date: 10/31/13 Status: Ordered ferrous sulfate 325 mg oral tablet (20 sources) Start: 03-06-2024 take 325 mg by mouth every other day Ferrous Sulfate Active 325 MG PO Q2D 15 March 06, 2024 12:00am Start: 07-26-2023 End: 03-03-2024 Ferrous Sulfate (Slow Fe) 13 7 mg (45 mg iron) tablet extended release Discontinued MG PO July 26, 2023 1:00am March 03, 2024 2:28pm Start: 07-26-2023 End: 03-03-2024 Start: 04-06-2023 take 1 tablet by kalie th three times weekly Slow Fe 142 (45 Fe) MG 1 tablet Orally Three times a Week for 30 day(s) Apr, Active take 1 tablet by kalie th once daily ferrous sulfate, 325 mg ferrous sulfate, tablet Take 1 tablet by mouth once daily. Active Flash Glucose Scanning Reade r (Freestyle Pedro 2 [place]) misc (3 sources) Start: 12-28-2023 Flash Glucose Scanning [place] (Freestyle Pedro 2 [place]) misc Active 0 .Route December 28, 2023 12:00am As directed Start: 12-28-2023 Flash Glucose Scanning [place] (Freestyle Pedro 2 [place]) misc Active 0 .ROUTE December 28, 2023 12:00am As directed Flash Glucose Sensor (Freest yle Pedro 2 Sensor) kit (3 sources) Start: 12-28-2023 Flash Glucose Sensor (Freestyle Pedro 2 Sensor) kit Active 0 .Route December 28, 2023 12:00am As directed Start: 12-28-2023 Flash Glucose Sensor (Freestyle Pedro 2 Sensor) kit Active 0 .ROUTE December 28, 2023 12:00am As directed 1.5 ml fremanezumab-vfrm 150 mg/ml auto-injector (17 sources) Start: 07-18-2023 inject 1.5 mL by subcutaneous injection every 30 days AJOVY AUTOINJECTOR 225 mg/1.5 mL Inject 1.5 mL (225 mg total) under the skin every 30 (thirty) days. 07/18/2023 Active Start: 07-12-2023 End: 03-03-2024 Fremanezumab-Vfrm (Ajovy Aut oinjector) 225 mg/1.5 mL auto-injector Discontinued 225 MG SUBCUT Q30D July 12, 2023 1:00am March 03, 2024 2:28pm hydroCHLOROthiazide 12.5 mg / valsartan 80 mg oral tablet (20 sources) Thiazide Diuretic, Angiotensin 2 Receptor Lamont Start: 03-13-2024 take 1 tablet by mouth once daily Valsartan-Hydrochlorothiazide (Diovan Hct) 80-12.5 mg tablet Active 1 TAB PO Daily March 13, 2024 12:00am Start: 03-13-2024 Start: 07-12-2023 End: 03-13-2024 Start: 11-23-2022 End: 03-13-2024 take 1 tablet by mouth once daily Valsartan-Hydrochlorothiazide Discontinued 1 TAB PO Daily July 12, 2023 1:00am March 13, 2024 1:06pm take 1 tablet by kalie th once daily Valsartan-hydroCHLOROthiazide 160-12.5 MG 1 tablet Orally Once a day Active take 1 tablet by kalie th every eight hours take 1 tablet by kalie th three times daily Valsartan-hydroCHLOROthiazide 160-12.5 MG 1 tablet Orally TID Active Insulin Aspart U-100 (Novolog Flexpen U-100 Insulin) 100 unit/mL (3 mL) Insulin Pen (1 source) Start: 03-13-2024 Insulin Aspart U-100 (Novolog Flexpen U-100 Insulin) 100 unit/mL (3 mL) Insulin Pen Active 0 UNIT SUBCUT 3X/Day with meals and bedtime 0 March 13, 2024 12:00am insulin lispro 100 unt/ml injectable solution (1 source) Insulin Analog insulin lispro (HumaLOG) 100 unit/mL injection Inject under the skin. Take as directed per insulin instructions. Active Insulin Syringe,Safety Needle (1 source) Start: 03-29-2024 Insulin Syringe,Safety Needle Active 0 .Route 100 March 29, 2024 12:00am As directed 24 hr isosorbide mononitrate 30 mg extended release oral tablet (20 sources) Nitrate Vasodilator Start: 03-08-2024 take 30 mg by mouth once daily Isosorbide Mononitrate Active 30 MG PO Daily March 08, 2024 12:00am Start: 01-11-2023 End: 03-06-2024 take 30 mg by mouth once daily Isosorbide Mononitrate Discontinued 30 MG PO Daily July 12, 2023 1:00am March 06, 2024 12:39pm Start: 07-11-2014 take 1 tablet by kalie [...] Active magnesium oxide 400 mg oral tablet (4 sources) Start: 03-13-2024 take 400 mg by mouth once daily Magnesium Oxide Active 400 MG PO Daily 0 March 13, 2024 12:00am Start: 03-13-2024 magnesium oxide (Mag-Ox) 400 mg tablet 1 tablet (400 mg) 3 times a day. Active metoprolol tartrate 25 mg oral tablet (20 sources) beta-Adrenergic Lamont Start: 03-13-2024 take 25 mg by mouth twice daily Metoprolol Tartrate Active 25 MG PO Twice daily 0 March 13, 2024 12:00am Hold for SBP Start: 03-08-2024 End: 03-13-2024 take 50 mg by mouth twice daily Metoprolol Tartrate Di scontinued 50 MG PO Twice daily March 08, 2024 12:00am March 13, 2024 1:06pm Start: 04-01-2018 End: 03-06-2024 take 50 mg by mouth twice daily Metoprolol Tartrate Di scontinued 50 MG PO Twice daily 180 September 27, 2023 3:55pm December 25, 2023 10:56am Start: 04-01-2018 End: 03-13-2024 take 12.5 mg by mouth twice daily Metoprolol Tartrate Discontinued 12.5 MG PO Twice daily 180 March 06, 2024 12:38pm March 08, 2024 2:53pm Start: 04-01-2018 take 100 mg by mouth [...] 0. 4 MG as directed Sublingual Active ONETOUCH ULTRA2 METER misc (5 sources) Start: 08-17-2023 ONETOUCH ULTRA 2 METER misc 1 Unit by subconjunctival route in the morning. 08/17/2023 Active pregabalin 50 mg oral capsule (20 sources) Start: 03-13-2024 take 50 mg by mouth twice daily Pregabalin Active 50 MG PO Twice daily 0 March 13, 2024 12:00am Start: 03-08-2024 End: 03-13-2024 take 1 capsule by mouth three times daily Pregabalin (Lyrica) 200 mg capsule Discontinued 200 MG PO Three times daily March 08, 2024 12:00am March 13, 2024 1:06pm Start: 01-24-2011 End: 03-06-2024 take 1 capsule by mouth three times daily Pregabalin (Lyrica) 200 mg capsule Discontinued 200 MG PO Three times daily 270 90 September 27, 2023 3:57pm September 28, 2023 10:19am ProAir HFA 108 (90 Base) MCG/ACT (20 sources) Start: 12-04-2017 take 2 puff(s) by inhalation every four hours as needed ProAir HFA 108 (90 Base) MCG/ACT 2 puffs as needed Inhalation Q4H PRN PRN Dec, Active Start: 12-04-2017 take 2 puff(s) by inhalation e very four hours as needed rOPINIRole 1 mg oral tablet (20 sources) Nonergot Dopamine Agonist Start: 03-13-2024 take 0.5 mg by mouth three times daily Ropinirole Active 0.5 MG PO Three times daily March 13, 2024 1:01pm Start: 01-24-2011 End: 03-13-2024 take 1 mg by mouth three times daily Ropinirole Discontinued 1 MG PO Three times daily January 24, 2024 12:28pm March 13, 2024 1:06pm tamsulosin hydrochloride 0.4 mg oral capsule (20 sources) alpha-Adrenergic Lamont Start: 03-08-2024 take 1 capsule by mouth twice daily Tamsulosin (Flomax) 0.4 mg capsule Active 0.4 MG PO Twice daily March 08, 2024 12:00am Start: 06-26-2023 End: 03-06-2024 take 0.4 mg by mouth twice daily Tamsulosin Discontinued 0.4 MG PO Twice daily July 12, 2023 1:00am March 06, 2024 4:20pm Start: 02-14-2023 take 1 capsule by mo ut twice daily tamsulosin 0.4 mg Cap 0.4 mg = 1 cap(s), Oral, BID, # 60 cap(s), Refills(s) 3, Pharmacy: [facility]/pharmacy #[id number], 182, cm, 02/14/23 8:58:00 [...] d irected Use as directed. Jan, Active tiotropium 0.018 mg inhalation powder (20 sources) Anticholinergic Start: 11-23-2022 take 1 capsule by inhalation once daily tiotropium (SPIRIVA WITH HANDIHALER) 18 mcg per inhalation capsule Place 1 capsule (18 mcg total) into inhaler and inhale once daily. 11/23/2022 Active Start: 11-23-2022 Spiriva 18 mcg Cap 18 [...] 0 Refills: 0 Ordered: 26-Oct-2021 DO Active Tiotropium [place] (Spiriva With Handihaler) 18 mcg capsule, w/inhalation device (11 sources) Start: 03-03-2024 take 1 capsule by inhalation once daily Tiotropium [place] (Spiriva With Handihaler) 18 mcg capsule, w/inhalation device Active 1 CAP INHALATION Daily March 03, 2024 12:00am puncture 1 cap using device; one dose = 2 inhalations Start: 07-12-2023 End: 03-03-2024 take 1 capsule by inhalation once daily Tiotropium [place] (Spiriva With Handihaler) 18 mcg capsule, w/inhalation device Discontinued 1 CAP INHALATION Daily July 12, 2023 1:00am March 03, 2024 2:29pm puncture 1 cap using device; one dose = 2 inhalations Start: 07-12-2023 take 1 capsule by in halation once daily Tiotropium [place] (Spiriva With Handihaler) 18 mcg capsule, w/inhalation device Active 1 CAP INHALATION Daily July 12, 2023 1:00am puncture 1 cap using device; one dose = 2 inhalations Start: 07-12-2023 take 1 capsule by in halation once daily Tiotropium [place] (Spiriva With Handihaler) 18 mcg capsule, w/inhalation device Active 1 CAP INHALATION Daily July 12, 2023 12:00am puncture 1 cap using device; one dose = 2 inhalations ubrogepant 100 mg oral tablet (6 sources) take 1 tablet by mouth once daily as needed ubrogepant 100 mg tablet Take 100 mg by mouth daily as needed. Active (20 sources) Start: 03-13-2024 Start: 03-08-2024 End: 03-13-2024 Start: 03-08-2024 Start: 03-06-2024 Start: 03-03-2024 Start: 03-03-2024 End: 03-08-2024 Start: 03-03-2024 End: 03-08-2024 Start: 03-03-2024 End: 03-08-2024 Start: 12-28-2023 Start: 12-25-2023 End: 12-28-2023 Start: 12-25-2023 End: 12-28-2023 Start: 12-05-2023 End: 03-06-2024 Start: 09-28-2023 End: 12-05-2023 Start: 09-27-2023 End: 09-28-2023 Start: 07-27-2023 End: 09-27-2023 Start: 07-26-2023 End: 07-27-2023 Start: 07-12-2023 End: 03-03-2024 Start: 07-14-2020 End: 07-12-2023 Start: 08-08-2019 End: 07-26-2023 Completed/Discontinued Medications Medication Drug Class(es) Dates Sig (Normalized) Sig (Original) acetaminophen 325 mg / HYDROcodone bitartrate 5 mg oral tablet (20 sources) Opioid Agonist Start: 07-26-2023 End: 03-03-2024 take 1 tablet by mouth four times daily as needed Hydrocodone-Acetami nophen Discontinued TAB PO July 26, 2023 1:00am March 03, 2024 2:28pm [employer] tablet Orally QID PRN; Note: Source Status: Refill; Refills: 0; Provider: Syed Guerra Start: 07-26-2023 End: 03-03-2024 Start: 04-11-2023 take 1 tablet by kalie th four times daily as needed HYDROcodone-Acetaminophen 5-325 MG 1 tablet Orally QID PRN Apr, Active Start: 11-11-2022 take 1 tablet by kalie th every twelve hours HYDROcodone-Acetaminophen 5-325 MG 1 tablet as needed Orally every 12 hrs Nov, Active Start: 08-04-2022 take 1 tablet by kalie th every six hours Start: 04-19-2022 take 1 tablet by kalie th every six hours HYDROcodone-Acetaminophen 5-325 MG 1 tablet as needed Orally every 6 hrs Apr, Active Start: 02-15-2022 take 1 tablet by kalie th every six hours HYDROcodone-Acetaminophen 5-325 MG 1 tablet as needed Orally every 6 hrs Feb, Active Start: 10-08-2021 take 1 tablet by kalie th every six hours Start: 07-24-2019 End: 07-14-2020 take 1 tablet by mouth every six hours Hydrocodone-Acetaminophen Discontinued 1 TAB PO Q6H July 24, 2019 1:00am July 14, 2020 12:39pm Start: 07-24-2019 End: 07-14-2020 Start: 10-10-2014 [place] 325 mg-5 mg oral tablet 1 tab(s), Oral, q4hr for pain, 12 tab(s), Refill(s) 0 Start Date: 10/10/14 Status: Ordered alogliptin 25 mg oral tablet (20 sources) Start: 07-14-2020 End: 07-12-2023 take 1 [...] 2020 9:18am ALPRAZolam 0.5 mg oral tablet (20 sources) Benzodiazepine Start: 08-08-2019 End: 07-14-2020 take 1 tablet by mouth once daily Alprazolam (Xanax) 0.5 mg Tablet Discontinued 0.5 MG PO Daily August 08, 2019 1:00am July 14, 2020 12:39pm Start: 03-13-2019 End: 07-24-2019 take 2 tablets by mouth once daily Alprazolam (Xanax) 0.5 mg Tablet Discontinued 1 MG PO Daily March 13, 2019 12:00am July 24, 2019 2:52pm Start: 03-13-2019 End: 07-24-2019 End: 10-24-2023 take 1 tablet by mouth three times daily as needed ALPRAZolam (Xanax) 0.5 mg tablet Take 1 tablet (0.5 mg) by mouth 3 times a day as needed. 10/24/2023 Discontinued (Therapy completed) amitriptyline hydrochloride 25 mg oral tablet (20 sources) Tricyclic Antidepressant Start: 07-12-2023 End: 03-06-2024 take 100 mg by mouth once daily Amitriptyline Discontinued 100 MG PO Daily July 12, 2023 1:00am March 06, 2024 12:39pm Start: 07-12-2023 End: 03-13-2024 take 25 mg by mouth once daily Amitriptyline Discontin ued 25 MG PO Daily March 08, 2024 12:00am March 13, 2024 1:06pm Start: 11-23-2022 take 1 tablet by kalie th once daily amitriptyline (Elavil) 100 mg tablet Take 1 tablet (100 mg) by mouth once daily. 09/03/2023 Active take 0.5-1 tablets b y mouth once daily at bedtime Amitriptyline HCl 25 MG 1/2-1 tab Orally QHS Active amLODIPine 10 mg oral tablet (20 sources) Dihydropyridine Calcium Channel Lamont Start: 04-01-2018 End: 07-24-2019 take 5 mg by mouth once daily Amlodipine Discontinued 5 MG PO Daily April 01, 2018 12:00am July 24, 2019 2:52pm Start: 10-31-2013 take 1 tablet by kalie th once daily Norvasc 5 mg Tab 5 mg = 1 tab(s), Oral, Daily, Refills(s) 0 Start Date: 10/31/13 Status: Ordered baclofen 10 mg oral tablet (6 sources) gamma-Aminobutyric Acid-ergic Agonist Start: 03-03-2024 End: 03-08-2024 take 10 mg by mouth every six hours Baclofen Discontinued 10 MG PO Every 6 hours March 03, 2024 12:00am March 08, 2024 6:25pm Blood-Glucose Meter,Continuous (Freestyle Pedro [facility] [place]) misc (3 sources) Start: 12-25-2023 End: 12-28-2023 Blood-Glucose Meter,Continuous (Freestyle Pedro 3 [place]) misc Discontinued 0 .Route 1 December 25, 2023 12:00am December 28, 2023 11:03am As directed Blood-Glucose Sensor (Freestyle Pedro 3 Sensor) device (3 sources) Start: 12-25-2023 End: 12-28-2023 Blood-Glucose Sensor (Freestyle Pedro 3 Sensor) device Discontinued 0 .Route 1 December 25, 2023 12:00am December 28, 2023 11:03am As directed busPIRone hydrochloride 10 mg oral tablet (12 sources) Start: 03-13-2019 End: 07-24-2019 take 10 mg by mouth twice daily Buspirone Discontinued 10 MG PO Twice daily March 13, 2019 12:00am July 24, 2019 2:52pm diazePAM 5 mg oral tablet (20 sources) Benzodiazepine Start: 07-26-2023 End: 03-03-2024 take 1 tablet by mouth once daily as needed Diazepam Discontinued 5 MG PO Daily July 26, 2023 1:00am March 03, 2024 2:28pm FreeTextSi tablet as needed Orally Once a day; Note: Source Status: Takingprn; Refills: 0; Provider: Syed Guerra Start: 05-21-2020 End: 07-12-2023 take 5 mg by mouth once daily Diazepam Discontinued 5 MG PO Daily July 14, 2020 1:00am July 12, 2023 6:30pm dicyclomine hydrochloride 20 mg oral tablet (20 sources) Anticholinergic Start: 05-22-2020 End: 07-12-2023 take [...] procedure, # 2 cap(s), Refills(s) 0, Pharmacy: [facility]/pharmacy #[id number], 182, cm, 01/30/23 10:24:00 EDT, Height/Length Dosing, 94, kg, 01/30/23 10:24:00 EDT, Weight Dosing Start Date: 01/30/23 Status: Ordered 0.5 ml dulaglutide 1.5 mg/ml auto-injector (20 sources) GLP-1 Receptor Agonist Start: 07-12-2023 End: 03-13-2024 Dulaglutide (Trulicity) 0.75 mg/0.5 mL pen injector Discontinued 0.75 MG SUBCUT every week July 12, 2023 1:00am March 13, 2024 1:06pm Start: 07-12-2023 End: 03-13-2024 inject 0.5 mL by subcutaneous injection every week dulaglutide 0.75 mg/0.5 mL pen injector Inject 0.5 mL (0.75 mg total) under the skin once a week. 07/12/2023 Active Start: 01-30-2023 Trulicity Pen 1.5 mg/0.5 mL subcutaneous solution Refills(s) 0 Start Date: 01/30/23 Status: Ordered Start: 07-27-2021 inject 0.5 mL by sub cutaneous injection every week Trulicity 1.5 MG/0.5ML 0.5ml Subcutaneous weekly please dispense 4 pens Jul, Active Start: 07-27-2021 inject 0.5 mL by sub cutaneous injection every week furosemide 20 mg oral tablet (20 sources) Loop Diuretic Start: 07-26-2023 End: 07-25-2024 take 1 tablet by mouth once daily furosemide (Lasix) 40 mg tablet Indications: Localized edema Take 1 tablet (40 mg) by mouth once daily. 90 tablet 1 07/26/2023 07/25/2024 Active Start: 07-12-2023 End: 03-08-2024 take 2 tablets by mouth once daily in the morning Furosemide (Lasix) 20 mg tablet Discontinued 40 MG PO Every morning March 03, 2024 12:00am March 08, 2024 6:26pm Start: 07-12-2023 End: 03-03-2024 take 1 tablet by mouth once daily in the morning Furosemide (Lasix) 20 mg tablet Discontinued 20 MG PO Every morning July 12, 2023 1:00am March 03, 2024 2:29pm Start: 03-13-2019 End: 07-14-2020 take 20 mg by mouth once daily Furosemide Discontinued 20 MG PO Daily March 13, 2019 12:00am July 14, 2020 12:39pm Start: 03-13-2019 End: 07-14-2020 glimepiride 2 mg oral tablet (20 sources) Sulfonylurea Start: 10-31-2013 End: 03-06-2024 take 2 mg by mouth twice daily Glimepiride Discontinued 2 MG PO Twice daily April 01, 2018 12:00am March 06, 2024 12:39pm hydroCHLOROthiazide 25 mg / losartan potassium 100 mg oral tablet (12 sources) Thiazide Diuretic, Angiotensin 2 Receptor Lamont Start: 04-01-2018 End: 03-13-2019 take 1 tablet by mouth once daily Losartan-Hydrochl orothiazide Discontinued 1 TAB PO Daily April 01, 2018 12:00am March 13, 2019 8:00am Start: 04-01-2018 End: 03-13-2019 hydroCHLOROthiazide 12.5 mg / olmesartan medoxomil 40 mg oral tablet (12 sources) Thiazide Diuretic, Angiotensin 2 Receptor Lamont Start: 07-24-2019 End: 07-14-2020 take 1 tablet by mouth once daily Olmesartan-Hydrochlorothiazide (Benicar Hct) 40-12.5 mg Tablet Discontinued 1 TAB PO Daily July 24, 2019 1:00am July 14, 2020 12:39pm Start: 07-24-2019 End: 07-14-2020 ibuprofen 200 mg oral tablet (20 sources) Nonsteroidal Anti-inflammatory Drug Start: 07-26-2023 End: 03-03-2024 take 1 tablet by mouth three times daily at mealtime as needed Ibuprofen Discontinued 200 MG PO Three times daily July 26, 2023 1:00am March 03, 2024 2:28pm FreeTextSi tablet with food or milk as needed Orally Three times a day; Note: Source Status: Taking; Provider: Syed Eason ( ) take 1 tablet by kalie three times daily at mealtime as needed Ibuprofen 200 MG 1 tablet with food or milk as needed Orally Three times a day Active 3 ml insulin glargine 100 unt/ml pen injector (6 sources) Insulin Analog Start: 03-03-2024 End: 03-08-2024 Insulin Glargine (Basaglar Kwikpen U-100 Insulin) 100 unit/mL (3 mL) insulin pen Discontinued 35 UNIT SUBCUT Every morning March 03, 2024 12:00am March 08, 2024 6:26pm Insulin Lispro (Humalog Kwikpen Insulin) 100 unit/mL insulin pen (3 sources) Start: 03-03-2024 End: 03-08-2024 Insulin Lispro (Humalog Kwikpen Insulin) 100 unit/mL insulin pen Discontinued 1 sliding scale dose SUBCUT As Directed March 03, 2024 12:00am March 08, 2024 6:26pm Start: 03-03-2024 Insulin Lispro (Humalog Kwikpen Insulin) 100 unit/mL insulin pen Active 1 sliding scale dose SUBCUT As Directed March 03, 2024 12:00am 200 actuat ipratropium bromide 0.017 mg/actuat metered dose inhaler (6 sources) Anticholinergic Start: 03-03-2024 End: 03-13-2024 Ipratropium [place] (Atrovent Hfa) 17 mcg/actuation HFA aerosol inhaler Discontinued 2 INH INHALATION Three times daily March 03, 2024 12:00am March 13, 2024 1:06pm Start: 03-03-2024 End: 03-13-2024 Ketorolac (20 sources) Nonsteroidal Anti-inflammatory Drug, Cyclooxygenase Inhibitor Start: 01-15-2018 Toradol p er 15 mg Jan, 2 cc Start: 01-05-2018 Toradol per 15 mg Jan, 2 cc Start: 01-04-2018 Toradol per 15 mg Jan, 2 cc lansoprazole 30 mg delayed release oral capsule (12 sources) Proton Pump Inhibitor Start: 07-24-2019 End: 07-14-2020 take 1 capsule by mouth twice daily Lansoprazole (Prevacid) 30 mg Capsule,Delayed Release(Dr/Ec) Discontinued 30 MG PO Twice daily July 24, 2019 1:00am July 14, 2020 12:39pm metFORMIN hydrochloride 1000 mg oral tablet (20 sources) Biguanide Start: 06-06-2012 End: 03-13-2024 take 1000 mg by mouth twice daily Metformin Discontinued 1000 MG PO Twice daily 180 90 January 03, 2024 3:03pm March 13, 2024 1:06pm take 1 tablet by kalie th every twelve hours metFORMIN (GLUCOPHAGE) 1000 mg tablet Ta ke 1 tablet (1,000 mg total) by mouth every 12 (twelve) hours. Active take 1 tablet by kalie th every twelve hours metFORMIN (Glucophage) 1,000 mg tablet T valeriano 1 tablet (1,000 mg) by mouth every 12 hours. Active Nutritional Supplements (Nut ra Pro High Protein) powder (3 sources) Start: 03-03-2024 End: 03-08-2024 Nutritional Supplements (Nut ra Pro High Protein) powder Discontinued 1 EACH PO Twice daily March 03, 2024 12:00am March 08, 2024 6:26pm Start: 03-03-2024 Nutritional Monk pplements (Nutra Pro High Protein) powder Active 1 EACH PO Twice daily March 03, 2024 12:00am olmesartan medoxomil 5 mg oral tablet (20 sources) Angiotensin 2 Receptor Lamont Start: 03-13-2019 End: 07-24-2019 take 1 tablet [...] July 24, 2019 1:00am Start: 01-02-2018 End: 03-08-2024 take 40 mg by mouth once daily Omeprazole Discontinued 40 MG PO Daily September 27, 2023 3:54pm March 08, 2024 2:54pm take 2 tablets by mo [facility] twice daily before mealtime omeprazole OTC (PriLOSEC OTC) 20 mg EC tablet Take 2 tablets (40 mg) by mouth 2 times a day before meals. Do not crush, chew, or split. Active oxyCODONE hydrochloride 10 mg oral tablet (6 sources) Opioid Agonist Start: 03-03-2024 End: 03-08-2024 take 10 mg by mouth every six hours Oxycodone Discontinued 10 MG PO Every 6 hours March 03, 2024 12:00am March 08, 2024 6:26pm polyethylene glycol 3350 46021 mg powder for oral solution (6 sources) Osmotic Laxative Start: 03-03-2024 End: 03-08-2024 Polyethylene Glycol 3350 (Clearlax) 17 gram/dose powder Discontinued 17 GM PO Daily March 03, 2024 12:00am March 08, 2024 6:26pm 12 hr ranolazine 1000 mg extended release oral tablet (20 sources) Anti-anginal Start: 07-10-2014 End: 07-14-2020 take 1 tablet by mouth twice daily Ranolazine (Ranexa) 1,000 mg Tablet Extended Release 12 Hr Discontinued 1000 MG PO Twice daily April 01, 2018 12:00am July 14, 2020 12:39pm rimegepant 75 mg disintegrating oral tablet (11 sources) Start: 07-12-2023 End: 03-13-2024 take 1 tablet by mouth once daily Rimegepant (Nurtec Odt) 75 mg tablet,disintegrati ng Discontinued 75 MG PO Daily July 12, 2023 1:00am March 13, 2024 1:06pm Sennosides (Senna Laxative) 8.6 mg tablet (3 sources) Start: 03-03-2024 End: 03-08-2024 take 1 tablet by mouth twice daily Sennosides (Senna Laxative) 8.6 mg tablet Discontinued 8.6 MG PO Twice daily March 03, 2024 12:00am March 08, 2024 6:26pm Start: 03-03-2024 take 1 tablet by [facility] twice daily Sennosides (Senna Laxative) 8.6 mg tablet Active 8.6 MG PO Twice daily March 03, 2024 12:00am sildenafil 100 mg oral tablet (20 sources) Phosphodiesterase 5 Inhibitor Start: 03-08-2024 End: 03-13-2024 Sildenafil (Viagra) 100 mg tablet Discontinued 100 MG PO Daily March 08, 2024 12:00am March 13, 2024 1:06pm administer 30 minutes to 4 hours before activity Start: 03-08-2024 End: 03-13-2024 Start: 05-07-2018 End: 03-03-2024 take 1 tablet by mouth once daily Sildenafil (Viagra) 100 mg Tablet Discontinued 100 MG PO Daily March 13, 2019 12:00am March 03, 2024 2:29pm SITagliptin 100 mg oral tablet (20 sources) Dipeptidyl Peptidase 4 Inhibitor Start: 07-09-2020 End: 03-03-2024 take 1 tablet by mouth once daily Sitagliptin Phosphate (Januvia) 100 mg tablet Discontinued 100 MG PO Daily July 12, 2023 1:00am March 03, 2024 2:29pm tiZANidine 4 mg oral capsule (20 sources) Central alpha-2 Adrenergic Agonist Start: 03-08-2024 End: 03-13-2024 take 4 mg by mouth once daily at bedtime Tizanidine Discontinued 4 MG PO Daily at bedtime March 08, 2024 12:00am March 13, 2024 1:06pm Start: 07-12-2023 End: 03-03-2024 take 4 mg by mouth once daily at bedtime Tizanidine Discontinued 4 MG PO Daily at bedtime July 12, 2023 1:00am March 03, 2024 2:29pm Start: 11-23-2022 End: 03-13-2024 take 1 capsule by mouth three times daily as needed for muscle spasms tiZANidine (ZANAFLEX) 4 mg capsule Take 1 capsule (4 mg total) by mouth 3 (three) times a day as needed for muscle spasms. 11/23/2022 Active Start: 07-04-2022 take 1 tablet by kalie every twelve hours tiZANidine HCl 4 MG 1 tablet as needed Orally Twice a day Jun, Active take 2 tablets by mo [facility] at bedtime tiZANidine HCl - 4 MG Oral Tablet TAKE 2 TABLETS AT BEDTIME. Quantity: 0 Refills: 0 Ordered: 11-Jan-2023 DO Active Toradol 30 mg/ml (20 sources) Start: 07-25-2022 Toradol 30 mg/ ml Jul, 60 mg Start: 07-18-2022 Toradol 30 mg/ ml Jul, 60 mg Start: 07-13-2022 Toradol 30 mg/ ml Jul, 60 mg Start: 07-04-2022 Toradol 30 mg/ ml Jun, 60 mg traMADol hydrochloride 50 mg oral tablet (20 sources) Opioid Agonist Start: 07-26-2023 End: 03-03-2024 take 1 tablet by mouth four times daily as needed Tramadol Discontinued 50 MG PO July 26, 2023 1:00am March 03, 2024 2:29pm FreeTextSi tablet as needed Orally QID; Note: [...] 13, 2019 12:00am July 24, 2019 2:52pm traZODone hydrochloride 50 mg oral tablet (12 sources) Serotonin Reuptake Inhibitor Start: 07-24-2019 End: 07-14-2020 take 50 mg by mouth at bedtime Trazodone Discontinued 50 MG PO Bedtime July 24, 2019 1:00am July 14, 2020 12:40pm Start: 07-24-2019 End: 07-14-2020 Triamcinolone (20 sources) Corticosteroid Start: 10-02-2013 KENALOG - 10 mg Sep, 1 cc varenicline 1 mg oral tablet (9 sources) Partial Cholinergic Nicotinic Agonist Start: 07-14-2020 [...] Chronic Acute myocardial infarction (20 sources) Myocardial infarction; Translations: [Acute myocardial infarction, unspecified] Onset: 4 10-10-2014 Chronic Anxiety disorders (20 sources) Anxiety; Translations: [Anxiety disorder, unspecified] Onset: 2 Resolved: 2 Chronic Asthma (20 sources) Asthmatic bronchitis; Translations: [Unspecified asthma, uncomplicated] Onset: 4 11-23-2022 Chronic Cardiac dysrhythmias (20 sources) Atrial fibrillation; Translations: [Unspecified atrial fibrillation] Onset: 4 01-03-2024 Chronic Chronic kidney disease (20 sources) Chronic kidney disease stage 3; Translations: [Chronic kidney disease, stage 3 (moderate)] Onset: 2 Resolved: 2 Chronic Chronic kidney disease (6 sources) Chronic kidney disease; Translations: [Stage 3 chronic kidney disease, unspecified whether stage 3a or 3b CKD] Onset: 2 Resolved: 2 Chronic obstructive pulmonary disease and bronchiectasis (20 sources) Pulmonary emphysema; Translations: [Chronic obstructive lung disease] Onset: 4 11-23-2022 Chronic Congestive heart failure; nonhypertensive (19 sources) Congestive heart failure; Translations: [Heart failure] Onset: 4 10-10-2014 Chronic Coronary atherosclerosis and other heart disease (20 sources) Disorder of coronary artery; Translations: [Coronary atherosclerosis of unspecified type of vessel, [place] or graft] Onset: 2 Resolved: 2 Chronic Deficiency and other anemia (10 sources) Anemia, unspecified; Translations: [Anemia, unspecified] Onset: 4 Episodic Deficiency and other anemia (9 sources) Anemia; Translations: [Anemia, unspecified] Onset: 4 03-03-2024 Episodic Diabetes mellitus with complications (20 sources) Peripheral vascular disorder due to diabetes mellitus; Translations: [Type 2 diabetes mellitus with other circulatory complications] Onset: 2 Resolved: 4 Chronic Diabetes mellitus without complication (20 sources) Diabetes mellitus; Translations: [Diabetes mellitus without mention of complication, type II or unspecified type, not stated as uncontrolled] Onset: 3 04-02-2018 Chronic Disorders of lipid metabolism (20 sources) Hyperlipidemia; Translations: [Other and unspecified hyperlipidemia] Onset: 6 Resolved: 2 Chronic Esophageal disorders (20 sources) Gastroesophageal reflux disease; Translations: [Gastro-esophageal reflux disease without esophagitis] Onset: 2 Resolved: 2 Chronic Essential hypertension (20 sources) Hypertensive disorder; Translations: [Essential (primary) hypertension] Onset: 4 04-02-2018 Chronic Gout and other crystal arthropathies (20 sources) Gout; Translations: [Gout, unspecified] Onset: 2 Resolved: 2 Chronic Headache; including migraine (5 sources) Migraine; Translations: [Migraine, unspecified, not intractable, without status migrainosus] Onset: 4 03-15-2024 Chronic Hyperplasia of prostate (20 sources) Benign prostatic hypertrophy with outflow obstruction; Translations: [Benign prostatic hyperplasia with lower urinary tract symptoms] Onset: 3 Chronic Hypertension with complications and secondary hypertension (20 sources) Hypertensive renal disease; Translations: [Hypertensive chronic kidney disease with stage 1 through stage 4 chronic kidney disease, or unspecified chronic kidney disease] Onset: 2 Resolved: 2 Chronic Infective arthritis and osteomyelitis (except that caused by tuberculosis or sexually transmitted disease) (5 sources) Osteomyelitis; Translations: [Osteomyelitis, unspecified] Onset: 4 10-06-2023 Chronic Inflammatory conditions of male genital organs (17 sources) Orchitis; Translations: [Orchitis] Onset: 3 Episodic Nausea and vomiting (20 sources) Nausea and vomiting; Translations: [Nausea with vomiting, unspecified] Episodic Nonspecific chest pain (17 sources) Chest pain; Translations: [Chest pain, unspecified] Onset: 4 04-01-2018 Episodic Nutritional deficiencies (20 sources) Vitamin D deficiency; Translations: [Vitamin D deficiency, unspecified] Onset: 2 Resolved: 2 Chronic Osteoarthritis (19 sources) Arthritis; Translations: [Unspecified osteoarthritis, unspecified site] Onset: 4 01-16-2013 Chronic Other acquired deformities (20 sources) Contracture of joint of hand; Translations: [Contracture, 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 Other aftercare (20 sources) Long-term current use of insulin; Translations: [MCFP (current) use of insulin] 01-03-2024 Episodic Other aftercare (6 sources) Follow-up orthopedic assessment; Translations: [Encounter for orthopedic aftercare following surgical amputation] Onset: 4 02-28-2024 Episodic Other and ill-defined heart disease (14 sources) Heart disease 11-23-2022 Chronic Other bone disease and musculoskeletal deformities (1 source) History of amputation of right leg through tibia and fibula; Translations: [Acquired absence of right leg below knee] 03-21-2024 Chronic Other circulatory disease (1 source) Other specified symptoms and signs involving the circulatory and respiratory systems; Translations: [Other specified symptoms and signs involving the circulatory and respiratory systems] Onset: 4 Episodic Other circulatory disease (4 sources) Low blood pressure; Translations: [Hypotension, unspecified] Onset: 4 03-15-2024 Episodic Other connective tissue disease (20 sources) Pain in limb; Translations: [Pain in leg, unspecified] Episodic Other connective tissue disease (5 sources) Pain in right leg Onset: 2 Resolved: 2 Episodic Other connective tissue disease (14 sources) 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 Other connective tissue disease (1 source) Pain in left arm Episodic Other connective tissue disease (11 sources) Fibromyalgia; Translations: [Fibromyalgia] Onset: 4 01-03-2024 Episodic Other connective tissue disease (5 sources) Spasm; Translations: [Other muscle spasm] Onset: 4 02-28-2024 Episodic Other diseases of bladder and urethra [...] sources) Restless legs; Translations: [Restless legs syndrome] Onset: 4 08-16-2013 Chronic Other hereditary and degenerative nervous system conditions (13 sources) Restless legs syndrome; Translations: [Restless legs syndrome (RLS)] Onset: 2 Resolved: 2 Chronic Other injuries and conditions due to external causes (4 sources) Hypothermia; Translations: [Hypothermia, initial encounter] 03-08-2024 Episodic Other injuries and conditions due to external causes (2 sources) Hypothermia, initial encounter; Translations: [Hypothermia] 03-08-2024 Episodic Other lower respiratory disease (20 sources) Solitary nodule of lung; Translations: [Solitary pulmonary nodule] Episodic Other lower respiratory disease (4 sources) Shortness of breath; Translations: [Shortness of [...] lower limbs] Chronic Other nervous system disorders (1 source) Carpal tunnel syndrome; Translations: [Carpal tunnel syndrome, unspecified upper limb] Onset: 4 10-06-2023 Chronic Other nervous system disorders (4 sources) Carpal tunnel syndrome of right wrist; Translations: [Carpal tunnel syndrome, right upper limb] Onset: 1 03-15-2024 Chronic Other nervous system disorders (4 sources) Polyneuropathy; Translations: [Polyneuropathy, unspecified] Onset: 1 03-15-2024 Chronic Other nervous system disorders (1 source) Other chronic pain; Translations: [Other chronic pain] Onset: 4 Chronic Other nervous system disorders (20 sources) [...] Chronic Other nutritional; endocrine; and metabolic disorders (3 sources) Hyperbilirubinemia; Translations: [Other disorders of bilirubin metabolism] 03-10-2024 Chronic Other nutritional; endocrine; and metabolic disorders (2 sources) Other disorders of bilirubin metabolism; Translations: [Jaundice, unspecified, not of ] Onset: 4 03-13-2024 Chronic Other nutritional; endocrine; and metabolic disorders (6 sources) Overweight in adulthood with body mass index of 25 or more but less than 30; Translations: [Overweight] Episodic Other screening for suspected conditions (not mental disorders or infectious disease) (4 sources) Imaging result abnormal; Translations: [Abnormal findings on diagnostic imaging of other specified body structures] 03-21-2024 Chronic Other screening for suspected conditions (not mental disorders or infectious disease) (20 sources) Patient encounter status; Translations: [Encounter for screening for malignant neoplasm of colon] Onset: 2 Resolved: 2 Episodic Peripheral and visceral atherosclerosis (20 sources) Intermittent claudication; Translations: [Peripheral vascular disease, unspecified] Onset: 4 11-08-2023 Chronic Residual codes; unclassified (5 sources) Sleep apnea; Translations: [Sleep apnea, unspecified] Onset: 5 10-30-2023 Chronic Residual codes; unclassified (20 sources) Edema of lower extremity; Translations: [Localized edema] Onset: 4 07-12-2023 Episodic Residual codes; unclassified (20 sources) Peripheral edema; Translations: [Edema, unspecified] Episodic Residual codes; unclassified (20 sources) Amnesia; Translations: [Other amnesia] Episodic Residual codes; unclassified (20 sources) Difficulty sleeping ; Translations: [Sleep disorder, unspecified] Episodic Residual codes; unclassified (20 sources) Insomnia; Translations: [Insomnia, unspecified] Episodic Residual codes; unclassified (12 sources) FH: premature coronary heart disease; Translations: [Family history of ischemic heart disease and other diseases of the circulatory system] 04-01-2018 Episodic Residual codes; unclassified (14 sources) Tobacco user 01-16-2013 Episodic Comment on above: Added secondary to s ocial history documentation. Residual codes; unclassified (2 sources) Other specified postprocedural states; Translations: [Other specified postprocedural states] Onset: 4 Episodic Residual codes; unclassified (1 source) Pain, unspecified; Translations: [Pain, unspecified] Onset: 4 Episodic Residual codes; unclassified (8 sources) Altered mental status; Translations: [Altered mental status, unspecified] Onset: 4 03-08-2024 Episodic Residual codes; unclassified (5 sources) Altered mental status, unspecified; Translations: [Altered mental status] Onset: 4 03-08-2024 Episodic Residual codes; unclassified (1 source) Disorientated; Translations: [Disorientation, unspecified] 03-15-2024 Episodic Spondylosis; intervertebral disc disorders; other back problems (20 sources) Degeneration of lumbar intervertebral disc; Translations: [Other intervertebral disc degeneration, lumbar region] Chronic Spondylosis; intervertebral disc disorders; other back problems (20 sources) Neck pain; Translations: [Cervicalgia] Onset: 4 01-03-2024 Episodic Substance-related disorders (20 sources) Smoker; Translations: [Nicotine dependence, unspecified, uncomplicated] Onset: 4 07-10-2014 Chronic Comment on above: Added secondary to d ocumentation in Social History. 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 ([facility]) [I70.261] Onset: 4 Unclassified (1 source) New Patient Onset: 4 Unclassified (1 source) 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 Onset: 4 Urinary tract infections (1 source) Urinary tract infection, site not specified Episodic Past or Other Problems Problem Classification Problem Date Documented Da te Episodic/Chronic Cardiac dysrhythmias (7 sources) Palpitations; Translations: [Palpitations] Onset: 03-27-2023 03-27-2023 Episodic Chronic ulcer of skin (5 sources) Pressure ulcer of right ankle, stage 3; Translations: [Pressure ulcer, ankle] Onset: 11-08-2023 Resolved: 02-28-2024 02-28-2024 Chronic Complications of surgical procedures or medical care (5 sources) Disorder of amputation stump; Translations: [Other complications of amputation stump] Onset: 11-08-2023 Resolved: 02-28-2024 02-28-2024 Episodic Coronary atherosclerosis and other heart disease (2 sources) Coronary angioplasty status; Translations: [Coronary angioplasty status] Onset: 03-27-2023 Episodic Gangrene (8 sources) 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; Translations: [Atherosclerosis of [place] arteries of extremities with gangrene, right leg] Onset: 10-18-2023 Resolved: 02-28-2024 Chronic Genitourinary symptoms and ill-defined conditions (20 sources) Retention of urine; Translations: [Retention of urine, unspecified] Onset: 11-23-2022 Episodic Headache; including migraine (20 sources) Headache; Translations: [Headache] Onset: 10-30-2023 11-23-2022 Episodic Headache; including migraine (5 sources) Headache; including migraine Heart valve disorders (19 sources) Heart murmur; Translations: [Cardiac murmur, unspecified] Onset: 10-30-2023 11-23-2022 Episodic Mood disorders (5 sources) Mood disorders Onset: 11-07-2023 11-07-2023 Neoplasms of unspecified nature or uncertain behavior (1 source) Neoplasm of uncertain behavior of skin Onset: 02-15-2022 Resolved: 02-15-2022 Episodic Other connective tissue disease (1 source) Pain in left leg Onset: 10-08-2021 Resolved: 10-08-2021 Episodic Other connective tissue disease (5 sources) Muscle weakness; Translations: [Muscle weakness (generalized)] Onset: 10-30-2023 10-30-2023 Episodic Other connective tissue disease (1 source) Other specified soft tissue disorders; Translations: [Other specified soft tissue disorders] Onset: 07-12-2023 Episodic Other hematologic conditions (1 source) Other abnormality of red blood cells Onset: 02-15-2022 Resolved: 02-15-2022 Episodic Other lower respiratory disease (4 sources) Other nonspecific abnormal finding of lung field; Translations: [OTH NONSPECIFIC ABN FIND LNG FIELD] Onset: 10-12-2021 Episodic Other male genital disorders (5 sources) Disorder of male genital organ; Translations: [Hydrocele, unspecified] Onset: 10-30-2023 10-30-2023 Episodic Other nervous system disorders (7 sources) Finding related to ability to move; Translations: [Other abnormalities of gait and mobility] Onset: 10-30-2023 10-30-2023 Episodic Other nervous system disorders (4 sources) Pain in limb - multiple; Translations: [Paresthesia of skin] Onset: 09-22-2020 03-15-2024 Episodic Other nervous system disorders (4 sources) Paresthesia of lower extremity; Translations: [Paresthesia of skin] Onset: 09-22-2020 03-15-2024 Episodic Other non-traumatic joint disorders (1 source) Pain in right hip Onset: 07-27-2021 Resolved: 07-27-2021 Episodic Other nutritional; endocrine; and metabolic disorders (1 source) Abnormal weight loss Onset: 07-27-2021 Resolved: 07-27-2021 Episodic Residual codes; unclassified (1 source) Insomnia, unspecified Onset: 07-27-2021 Resolved: 07-27-2021 Episodic Screening and history of mental health and substance abuse codes (10 sources) Ex-smoker; Translations: [Personal history of tobacco use] Onset: 10-24-2023 10-24-2023 Episodic Comment on above: qauit 07/2020; Septicemia (except in labor) (6 sources) Sepsis, unspecified organism; Translations: [Bacterial sepsis] Onset: 10-06-2023 Resolved: 10-10-2023 Episodic Skin and subcutaneous tissue infections (5 sources) Abscess of right foot; Translations: [Cutaneous abscess of right foot] Onset: 10-06-2023 Resolved: 02-28-2024 02-28-2024 Episodic Unclassified (1 source) History of amputation of right leg through tibia and fibula 03-21-2024 Results Test Name Value Interpretation Reference Range Facility Alanine aminotransferase [En zymatic activity/volume] in Serum or PlasmaOrdered By: João Powell on 03-13-2024 ALT [Catalytic activity/Vol] 38 U/L 7-52 [facility] Comment on above: Performed By: #### C MP, PHOS, MG, SCAN CBC #### [facility] [address] [place] [address] [place] Albumin [Mass/volume] in Ser um or Plasma by Bromocresol green (BCG) dye binding methoOrdered By: João Powell on 03-13-2024 Albumin BCG dye [Mass/Vol] 3.6 g/dL 3.5-5.7 [facility] Alkaline phosphatase [Enzyma tic activity/volume] in Serum or PlasmaOrdered By: João Powell on 03-13-2024 ALP [Catalytic activity/Vol] 313 U/L High 34-104 [facility] Comment on above: Performed By: #### C MP, PHOS, MG, SCAN CBC #### [facility] [address] [place] [address] [place] Aspartate aminotransferase [ Enzymatic activity/volume] in Serum or PlasmaOrdered By: João Powell on 03-13-2024 AST [Catalytic activity/Vol] 28 U/L 13-39 [facility] Comment on above: Performed By: #### C MP, PHOS, MG, SCAN CBC #### [facility] [address] [place] [address] [place] Automated basophil %Ordered By: João Powell on 03-13-2024 Basophils/100 WBC (Bld) 1.2 % . [facility] Comment on above: Performed By: #### C MP, PHOS, MG, SCAN CBC #### [facility] [address] [place] [address] [place] Automated basophil countOrde red By: João Powell on 03-13-2024 Basophils (Bld) [#/Vol] 0.1 10*3/uL 0.0-0.2 [facility] Comment on above: Result Comment: PERF ORMED BY: [place] [address] PATHOLOGIST DIRECTOR OF RECRUITMENT AND ADMISSIONS CLIFFORD LOBATO M.D. Performed By: #### C MP, PHOS, MG, SCAN CBC #### [facility] [address] [place] [address] Automated blood monocyte cou ntOrdered By: João Powell on 03-13-2024 Monocytes (Bld) [#/Vol] 0.9 10*3/uL High 0.0-0.8 [facility] Comment on above: Performed By: #### C MP, PHOS, MG, SCAN CBC #### [facility] [address] [place] [address] Automated eosinophil %Ordere d By: João Powell on 03-13-2024 Eosinophils/100 WBC (Bld) 3.0 % . [facility] Comment on above: Performed By: #### C MP, PHOS, MG, SCAN CBC #### [facility] [address] [place] [address] Automated eosinophil countOr dered By: João Powell on 03-13-2024 Eosinophils (Bld) [#/Vol] 0.2 10*3/uL 0.0-0.45 [facility] Comment on above: Performed By: #### C MP, PHOS, MG, SCAN CBC #### [facility] [address] [place] [address] Automated monocyte %Ordered By: João Powell on 03-13-2024 Monocytes/100 WBC (Bld) 14.4 % . [facility] Comment on above: Performed By: #### C MP, PHOS, MG, SCAN CBC #### [facility] [address] [place] [address] Automated neutrophil %Ordere d By: João Powell on 03-13-2024 Neutrophils/100 WBC (Bld) 66.7 % . [facility] Comment on above: Performed By: #### C MP, PHOS, MG, SCAN CBC #### [facility] [address] [place] [address] Bilirubin.total [Mass/volume ] in Serum or PlasmaOrdered By: João Powell on 03-13-2024 Bilirubin [Mass/Vol] 0.9 mg/dL 0.3-1.0 [facility] Comment on above: Performed By: #### C MP, PHOS, MG, SCAN CBC #### [facility] [address] [place] [address] Calcium [Mass/volume] in Ser um or PlasmaOrdered By: João Powell on 03-13-2024 Calcium [Mass/Vol] 9.1 mg/dL 8.6-10.3 [facility] Comment on above: Performed By: #### C MP, PHOS, MG, SCAN CBC #### [address] Capillary blood glucose ashley urement by glucometer (mass/volume)Ordered By: Remberto Ervin on 03-13-2024 Glucose [Mass/Vol] 155 mg/dL [facility] Comment on above: Result Comment: Vandiver om Glucose Reference Range is dependent on time and content of last meal. Glucose of more than 200 mg/dL in a nonstressed, ambulatory subject supports the diagnosis of Diabetes Mellitus. PERFORMED BY: [place] [address] PATHOLOGIST DIRECTOR OF RECRUITMENT AND ADMISSIONS CLIFFORD LOBATO M.D. Performed By: #### G LULS #### Point of Care testing , Random Glucose Refer ence Range is dependent on time and content of last meal. Glucose of more than 200 mg/dL in a nonstressed, ambulatory subject supports the diagnosis of Diabetes Mellitus. Carbon dioxide, total [Moles /volume] in Serum or PlasmaOrdered By: João Powell on 03-13-2024 CO2 [Moles/Vol] 23.9 mmol/L 21.0-31.0 [facility] Comment on above: Performed By: #### C MP, PHOS, MG, SCAN CBC #### [facility] [address] [place] [address] Chloride [Moles/volume] in S ilia or PlasmaOrdered By: João Powell on 03-13-2024 Chloride [Moles/Vol] 101 mmol/L 98-107 [facility] Comment on above: Performed By: #### C MP, PHOS, MG, SCAN CBC #### [address] Complete Blood Count Auto Di ffon 03-13-2024 Mean Corpuscular HGB Conc 31.7 g/dL Low 32.5-35.6 [facility] Comment on above: Performed By: #### C MP, PHOS, MG, SCAN CBC #### [facility] [address] [place] [address] NRBC% 0.1 /100{WBC} Normal 0-0.5 [facility] Comment on above: Performed By: #### C MP, PHOS, MG, SCAN CBC #### [address] Comprehensive Metabolic Pane guy 03-13-2024 Albumin [Mass/Vol] 3.6 g/dL Normal 3.5-5.7 [facility] Comment on above: Performed By: #### C MP, PHOS, MG, SCAN CBC #### [address] Creatinine Clr Calc Pharmacy 56.79 Normal [facility] Comment on above: Performed By: #### C MP, PHOS, MG, SCAN CBC #### [address] GFR/1.73 sq M.predicted MDRD (S/P/Bld) [Vol rate/Area] 53.205 mL/min/{1.73_m2} Normal [facility] Comment on above: Performed By: #### C MP, PHOS, MG, SCAN CBC #### [address] Creatinine [Mass/volume] in Serum or PlasmaOrdered By: João Powell on 03-13-2024 Creatinine [Mass/Vol] 1.51 mg/dL High 0.70-1.30 [facility] Comment on above: Performed By: #### C MP, PHOS, MG, SCAN CBC #### [address] Erythrocyte distribution wid th [Ratio] by Automated countOrdered By: João Powell on 03-13-2024 Erythrocyte distribution width (RBC) [Ratio] 24.5 % High 12.0-14.8 [facility] Comment on above: Performed By: #### C MP, PHOS, MG, SCAN CBC #### [address] Erythrocytes [#/volume] in B lood by Automated countOrdered By: João Powell on 03-13-2024 RBC (Bld) [#/Vol] 4.12 10*6/uL 3.90-5.60 [facility] Comment on above: Performed By: #### C MP, PHOS, MG, SCAN CBC #### [address] Glucose Poct Glucometerson 1 Glucose [Mass/Vol] 162 mg/dL Normal [facility] Comment on above: Result Comment: [facility] Glucose Reference Range is dependent on time and content of last meal. Glucose of more than 200 mg/dL in a nonstressed, ambulatory subject supports the diagnosis of Diabetes Mellitus. PERFORMED BY: [place] [address] PATHOLOGIST DIRECTOR OF RECRUITMENT AND ADMISSIONS CLIFFORD LOBATO M.D. Performed By: #### G LULS #### Point of Care testing , Glucose [Mass/volume] in Ser um or PlasmaOrdered By: João Powell on 03-13-2024 Glucose [Mass/Vol] 149 mg/dL High 70-100 [facility] Comment on above: Result Comment: [facility] Glucose Reference Range is dependent on time and content of last meal. Glucose of more than 200 mg/dL in a nonstressed, ambulatory subject supports the diagnosis of Diabetes Mellitus. ADA recommended reference range Performed By: #### C MP, PHOS, MG, SCAN CBC #### [facility] [address] ADA recommended refe rence rangeRandom Glucose Reference Range is dependent on time and content of last meal. Glucose of more than 200 mg/dL in a nonstressed, ambulatory subject supports the diagnosis of Diabetes Mellitus. Hematocrit [Volume Fraction] of Blood by Automated countOrdered By: João Powell on 03-13-2024 Hematocrit (Bld) [Volume fraction] 29.9 % Low 38.8-50.0 [facility] Comment on above: Performed By: #### C MP, PHOS, MG, SCAN CBC #### [facility] [address] [place] [address] Hemoglobin [Mass/volume] in BloodOrdered By: João Powell on 03-13-2024 Hemoglobin (Bld) [Mass/Vol] 9.5 g/dL Low 13.0-17.0 [facility] Comment on above: Performed By: #### C MP, PHOS, MG, SCAN CBC #### [facility] [address] [place] [address] Leukocytes [#/volume] correc jorge for nucleated erythrocytes in Blood by Automated counOrdered By: João Powell on 03-13-2024 WBC corrected for nucl RBC Auto (Bld) [#/Vol] 6.0 10*3/uL 4.1-10.5 [facility] Leukocytes [#/volume] in Blo od by Automated countOrdered By: João Powell on 03-13-2024 WBC (Bld) [#/Vol] 6.0 10*3/uL 4.1-10.5 [facility] Comment on above: Performed By: #### C MP, PHOS, MG, SCAN CBC #### [facility] [address] [place] [address] Lymphocytes [#/volume] in Bl ood by Automated countOrdered By: João Powell on 03-13-2024 Lymphocytes (Bld) [#/Vol] 0.9 10*3/uL Low 1.00-4.8 [facility] Comment on above: Performed By: #### C MP, PHOS, MG, SCAN CBC #### [address] Lymphocytes/100 leukocytes i n Blood by Automated countOrdered By: João Powell on 03-13-2024 Lymphocytes/100 WBC (Bld) 14.7 % . [facility] Comment on above: Performed By: #### C MP, PHOS, MG, SCAN CBC #### [address] MCH [Entitic mass] by Automa jorge countOrdered By: João Powell on 03-13-2024 MCH (RBC) [Entitic mass] 23.0 pg Low 27.5-35.2 [facility] Comment on above: Performed By: #### C MP, PHOS, MG, SCAN CBC #### [address] MCHC Auto (RBC) [Mass/Vol]Or dered By: João Powell on 03-13-2024 MCHC (RBC) [Mass/Vol] 31.7 g/dL Low 32.5-35.6 [facility] MCV [Entitic volume] by Auto mated countOrdered By: João Powell on 03-13-2024 MCV (RBC) [Entitic vol] 72.6 fL Low 83.5-101 [facility] Comment on above: Performed By: #### C MP, PHOS, MG, SCAN CBC #### [address] Magnesium [Mass/volume] in S ilia or PlasmaOrdered By: João Powell on 03-13-2024 Magnesium [Mass/Vol] 1.7 mg/dL Low 1.9-2.7 [facility] Comment on above: Result Comment: PERF ORMED BY: [place] [address] PATHOLOGIST DIRECTOR OF RECRUITMENT AND ADMISSIONS CLIFFORD LOBATO M.D. Performed By: #### C MP, PHOS, MG, SCAN CBC #### [address] Neutrophils [#/volume] in Bl ood by Automated countOrdered By: João Powell on 03-13-2024 Neutrophils (Bld) [#/Vol] 4.0 10*3/uL 1.8-7.7 [facility] Comment on above: Performed By: #### C MP, PHOS, MG, SCAN CBC #### [facility] [address] No Panel InformationOrdered By: João Powell on 03-13-2024 Estimated GFR (CKD-EPI) 53.205 mL/Min [facility] Creatinine Clearance (Chem 56.79 [facility] 53.205 mL/Min [facility] 56.79 [facility] Nucleated erythrocytes [Pres ence] in Blood by Automated countOrdered By: João Powell on 03-13-2024 Nucleated RBC Auto Ql (Bld) 0.1 /100{WBC} 0-0.5 [facility] Phosphate [Mass/volume] in S ilia or PlasmaOrdered By: João Powell on 03-13-2024 Phosphate [Mass/Vol] 3.0 mg/dL 2.5-4.5 [facility] Comment on above: Performed By: #### C MP, PHOS, MG, SCAN CBC #### [facility] [address] [place] [address] Platelet mean volume [Entiti c volume] in Blood by Automated countOrdered By: João Powell on 03-13-2024 Platelet mean volume (Bld) [Entitic vol] 8.9 fL 6.6-10.1 [facility] Comment on above: Performed By: #### C MP, PHOS, MG, SCAN CBC #### [facility] [address] [place] [address] Platelets [#/volume] in Bloo d by Automated countOrdered By: João Powell on 03-13-2024 Platelets (Bld) [#/Vol] 197 10*3/uL 150-450 [facility] Comment on above: Performed By: #### C MP, PHOS, MG, SCAN CBC #### [facility] [address] [place] [address] Potassium [Moles/volume] in Serum or PlasmaOrdered By: João Powell on 03-13-2024 Potassium [Moles/Vol] 3.9 mmol/L 3.5-5.1 [facility] Comment on above: Performed By: #### C MP, PHOS, MG, SCAN CBC #### [facility] [address] [place] [address] Protein [Mass/volume] in Ser um or PlasmaOrdered By: João Powell on 03-13-2024 Protein [Mass/Vol] 7.5 g/dL 6.4-8.9 [facility] Comment on above: Performed By: #### C MP, PHOS, MG, SCAN CBC #### [address] Serum globulin measurement b y calculation (mass/volume)Ordered By: João Powell on 03-13-2024 Globulin (S) [Mass/Vol] 3.9 g/dL [facility] Comment on above: Performed By: #### C MP, PHOS, MG, SCAN CBC #### [facility] [address] [place] [address] Serum or plasma albumin/glob ulin mass ratioOrdered By: João Powell on 03-13-2024 Albumin/Globulin [Mass ratio] 0.9 {ratio} [facility] Comment on above: Performed By: #### C MP, PHOS, MG, SCAN CBC #### [address] Serum or plasma anion gap de terminationOrdered By: João Powell on 03-13-2024 Anion gap [Moles/Vol] 13.0 mmol/L 6.0-15.0 [facility] Comment on above: Performed By: #### C MP, PHOS, MG, SCAN CBC #### [facility] [address] [place] [address] [place] Sodium [Moles/volume] in Ser um or PlasmaOrdered By: João Powell on 03-13-2024 Sodium [Moles/Vol] 134 mmol/L Low 136-145 [facility] Comment on above: Performed By: #### C MP, PHOS, MG, SCAN CBC #### [address] Urea nitrogen [Mass/volume] in Serum or PlasmaOrdered By: João Powell on 03-13-2024 Urea nitrogen [Mass/Vol] 18 mg/dL 7- [facility] Comment on above: Performed By: #### C MP, PHOS, MG, SCAN CBC #### [address] Complete Blood Count Auto Di ffon 03-12-2024 Basophils (Bld) [#/Vol] 0.0 10*3/uL Normal 0.0-0.2 [facility] Comment on above: Result Comment: PERF ORMED BY: [place] [address] PATHOLOGIST DIRECTOR OF RECRUITMENT AND ADMISSIONS CLIFFORD LOBATO M.D. Performed By: #### C MP, PHOS, MG, SCAN CBC #### [address] Basophils/100 WBC (Bld) 0.8 % Normal . [facility] Comment on above: Performed By: #### C MP, PHOS, MG, SCAN CBC #### [address] Eosinophils (Bld) [#/Vol] 0.1 10*3/uL Normal 0.0-0.45 [facility] Comment on above: Performed By: #### C MP, PHOS, MG, SCAN CBC #### [address] Eosinophils/100 WBC (Bld) 1.7 % Normal . [facility] Comment on above: Performed By: #### C MP, PHOS, MG, SCAN CBC #### [address] Erythrocyte distribution width (RBC) [Ratio] 24.0 % High 12.0-14.8 [facility] Comment on above: Performed By: #### C MP, PHOS, MG, SCAN CBC #### [address] Hematocrit (Bld) [Volume fraction] 28.0 % Low 38.8-50.0 [facility] Comment on above: Performed By: #### C MP, PHOS, MG, SCAN CBC #### [address] Hemoglobin (Bld) [Mass/Vol] 9.0 g/dL Low 13.0-17.0 [facility] Comment on above: Performed By: #### C MP, PHOS, MG, SCAN CBC #### [address] Lymphocytes (Bld) [#/Vol] 0.7 10*3/uL Low 1.00-4.8 [facility] Comment on above: Performed By: #### C MP, PHOS, MG, SCAN CBC #### [address] Lymphocytes/100 WBC (Bld) 12.6 % Normal . [facility] Comment on above: Performed By: #### C MP, PHOS, MG, SCAN CBC #### [address] MCH (RBC) [Entitic mass] 23.1 pg Low 27.5-35.2 [facility] Comment on above: Performed By: #### C MP, PHOS, MG, SCAN CBC #### [address] MCV (RBC) [Entitic vol] 72.1 fL Low 83.5-101 [facility] Comment on above: Performed By: #### C MP, PHOS, MG, SCAN CBC #### [address] Mean Corpuscular HGB Conc 32.1 g/dL Low 32.5-35.6 [facility] Comment on above: Performed By: #### C MP, PHOS, MG, SCAN CBC #### [address] Monocytes (Bld) [#/Vol] 1.0 10*3/uL High 0.0-0.8 [facility] Comment on above: Performed By: #### C MP, PHOS, MG, SCAN CBC #### [address] Monocytes/100 WBC (Bld) 16.2 % Normal . [facility] Comment on above: Performed By: #### C MP, PHOS, MG, SCAN CBC #### [address] Neutrophils (Bld) [#/Vol] 4.0 10*3/uL Normal 1.8-7.7 [facility] Comment on above: Performed By: #### C MP, PHOS, MG, SCAN CBC #### [address] Neutrophils/100 WBC (Bld) 68.7 % Normal . [facility] Comment on above: Performed By: #### C MP, PHOS, MG, SCAN CBC #### [address] NRBC% 0.1 /100{WBC} Normal 0-0.5 [facility] Comment on above: Performed By: #### C MP, PHOS, MG, SCAN CBC #### [address] Platelet mean volume (Bld) [Entitic vol] 8.8 fL Normal 6.6-10.[address] [facility] Comment on above: Performed By: #### C MP, PHOS, MG, SCAN CBC #### [place] [address] [place] Platelets (Bld) [#/Vol] 191 10*3/uL Normal 150-450 [facility] Comment on above: Performed By: #### C MP, PHOS, MG, SCAN CBC #### [place] [address] [place] RBC (Bld) [#/Vol] 3.89 10*6/uL Low 3.90-5.60 [facility] Comment on above: Performed By: #### C MP, PHOS, MG, SCAN CBC #### [address] WBC (Bld) [#/Vol] 5.9 10*3/uL Normal 4.1-10.5 [facility] Comment on above: Performed By: #### C MP, PHOS, MG, SCAN CBC #### [address] Comprehensive Metabolic Pane guy 03-12-2024 Albumin [Mass/Vol] 3.5 g/dL Normal 3.5-5.7 [facility] Comment on above: Performed By: #### C MP, PHOS, MG, SCAN CBC #### [address] Albumin/Globulin [Mass ratio] 0.9 {ratio} Normal [facility] Comment on above: Performed By: #### C MP, PHOS, MG, SCAN CBC #### [address] ALP [Catalytic activity/Vol] 328 U/L High 34-104 [facility] Comment on above: Performed By: #### C MP, PHOS, MG, SCAN CBC #### [address] ALT [Catalytic activity/Vol] 46 U/L Normal 7-52 [facility] Comment on above: Performed By: #### C MP, PHOS, MG, SCAN CBC #### [address] Anion gap [Moles/Vol] 14.2 mmol/L Normal 6.0-15.0 [facility] Comment on above: Performed By: #### C MP, PHOS, MG, SCAN CBC #### [address] AST [Catalytic activity/Vol] 34 U/L Normal 13-39 [facility] Comment on above: Performed By: #### C MP, PHOS, MG, SCAN CBC #### [address] Bilirubin [Mass/Vol] 1.0 mg/dL Normal 0.3-1.0 [facility] Comment on above: Performed By: #### C MP, PHOS, MG, SCAN CBC #### [address] Calcium [Mass/Vol] 9.1 mg/dL Normal 8.6-10.3 [facility] Comment on above: Performed By: #### C MP, PHOS, MG, SCAN CBC #### [address] Chloride [Moles/Vol] 104 mmol/L Normal 98-107 [facility] Comment on above: Performed By: #### C MP, PHOS, MG, SCAN CBC #### [address] CO2 [Moles/Vol] 21.7 mmol/L Normal 21.0-31.0 [facility] Comment on above: Performed By: #### C MP, PHOS, MG, SCAN CBC #### [address] [address] Creatinine [Mass/Vol] 1.46 mg/dL High 0.70-1.30 [facility] Comment on above: Performed By: #### C MP, PHOS, MG, SCAN CBC #### [address] Creatinine Clr Calc Pharmacy 58.74 Normal [facility] Comment on above: Performed By: #### C MP, PHOS, MG, SCAN CBC #### [place] [address] [place] GFR/1.73 sq M.predicted MDRD (S/P/Bld) [Vol rate/Area] 55.398 mL/min/{1.73_m2} Normal [facility] Comment on above: Performed By: #### C MP, PHOS, MG, SCAN CBC #### [place] [address] Globulin (S) [Mass/Vol] 3.7 g/dL Normal [facility] Comment on above: Performed By: #### C MP, PHOS, MG, SCAN CBC #### [facility] [address] Glucose [Mass/Vol] 167 mg/dL High 70-100 [facility] Comment on above: Result Comment: [place] Glucose Reference Range is dependent on time and content of last meal. Glucose of more than 200 mg/dL in a nonstressed, ambulatory subject supports the diagnosis of Diabetes Mellitus. ADA recommended reference range Performed By: #### C MP, PHOS, MG, SCAN CBC #### [address] Potassium [Moles/Vol] 3.9 mmol/L Normal 3.5-5.1 [facility] Comment on above: Performed By: #### C MP, PHOS, MG, SCAN CBC #### [address] Protein [Mass/Vol] 7.2 g/dL Normal 6.4-8.9 [facility] Comment on above: Performed By: #### C MP, PHOS, MG, SCAN CBC #### [place] [address] [place] Sodium [Moles/Vol] 136 mmol/L Normal 136-145 [facility] Comment on above: Performed By: #### C MP, PHOS, MG, SCAN CBC #### [place] [address] [place] Urea nitrogen [Mass/Vol] 19 mg/dL Normal 7-25 [facility] Comment on above: Performed By: #### C MP, PHOS, MG, SCAN CBC #### [address] Glucose Poct Glucometerson 1 Glucose [Mass/Vol] 174 mg/dL Normal [facility] Comment on above: Result Comment: [place] Glucose Reference Range is dependent on time and content of last meal. Glucose of more than 200 mg/dL in a nonstressed, ambulatory subject supports the diagnosis of Diabetes Mellitus. PERFORMED BY: [place] [address] PATHOLOGIST DIRECTOR OF RECRUITMENT AND ADMISSIONS CLIFFORD LOBATO M.D. Performed By: #### G LULS #### Point of Care testing , Glucose [Mass/Vol] 216 mg/dL Normal [facility] Comment on above: Result Comment: [facility] Glucose Reference Range is dependent on time and content of last meal. Glucose of more than 200 mg/dL in a nonstressed, ambulatory subject supports the diagnosis of Diabetes Mellitus. PERFORMED BY: [place] [address] PATHOLOGIST DIRECTOR OF RECRUITMENT AND ADMISSIONS CLIFFORD LOBATO M.D. Performed By: #### G LULS #### Point of Care testing , Glucose [Mass/Vol] 230 mg/dL Normal [facility] Comment on above: Result Comment: [facility] Glucose Reference Range is dependent on time and content of last meal. Glucose of more than 200 mg/dL in a nonstressed, ambulatory subject supports the diagnosis of Diabetes Mellitus. PERFORMED BY: [place] [address] PATHOLOGIST DIRECTOR OF RECRUITMENT AND ADMISSIONS CLIFFORD LOBATO M.D. Performed By: #### G LULS #### Point of Care testing , Glucose [Mass/Vol] 179 mg/dL Normal [facility] Comment on above: Result Comment: [facility] Glucose Reference Range is dependent on time and content of last meal. Glucose of more than 200 mg/dL in a nonstressed, ambulatory subject supports the diagnosis of Diabetes Mellitus. PERFORMED BY: [place] [address] PATHOLOGIST DIRECTOR OF RECRUITMENT AND ADMISSIONS CLIFFORD LOBATO M.D. Performed By: #### C MP, PHOS, MG, SCAN CBC #### [facility] [address] Magnesiumon 03-12-2024 Magnesium [Mass/Vol] 2.0 mg/dL Normal 1.9-2.7 [facility] Comment on above: Result Comment: PERF ORMED BY: [place] [address] PATHOLOGIST DIRECTOR OF RECRUITMENT AND ADMISSIONS CLIFFORD LOBAOT M.D. Performed By: #### C MP, PHOS, MG, SCAN CBC #### [address] Phosphoruson 03-12-2024 Phosphate [Mass/Vol] 2.5 mg/dL Normal 2.5-4.5 [facility] Comment on above: Performed By: #### C MP, PHOS, MG, SCAN CBC #### [address] Complete Blood Count Auto Di ffon 03-11-2024 Basophils (Bld) [#/Vol] 0.1 10*3/uL Normal 0.0-0.2 [facility] Comment on above: Result Comment: PERF ORMED BY: [place] [address] PATHOLOGIST DIRECTOR OF RECRUITMENT AND ADMISSIONS CLIFFORD LOBATO M.D. Performed By: #### C MP, PHOS, MG, SCAN CBC #### [address] Basophils/100 WBC (Bld) 0.6 % Normal . [facility] Comment on above: Performed By: #### C MP, PHOS, MG, SCAN CBC #### [address] Eosinophils (Bld) [#/Vol] 0.2 10*3/uL Normal 0.0-0.45 [facility] Comment on above: Performed By: #### C MP, PHOS, MG, SCAN CBC #### [address] Eosinophils/100 WBC (Bld) 2.7 % Normal . [facility] Comment on above: Performed By: #### C MP, PHOS, MG, SCAN CBC #### [address] Erythrocyte distribution width (RBC) [Ratio] 24.0 % High 12.0-14.8 [facility] Comment on above: Performed By: #### C MP, PHOS, MG, SCAN CBC #### [address] Hematocrit (Bld) [Volume fraction] 27.6 % Low 38.8-50.0 [facility] Comment on above: Performed By: #### C MP, PHOS, MG, SCAN CBC #### [address] Hemoglobin (Bld) [Mass/Vol] 8.8 g/dL Low 13.0-17.0 [facility] Comment on above: Performed By: #### C MP, PHOS, MG, SCAN CBC #### [address] Lymphocytes (Bld) [#/Vol] 0.5 10*3/uL Low 1.00-4.8 [facility] Comment on above: Performed By: #### C MP, PHOS, MG, SCAN CBC #### [address] Lymphocytes/100 WBC (Bld) 5.3 % Normal . [facility] Comment on above: Performed By: #### C MP, PHOS, MG, SCAN CBC #### [address] MCH (RBC) [Entitic mass] 23.1 pg Low 27.5-35.2 [facility] Comment on above: Performed By: #### C MP, PHOS, MG, SCAN CBC #### [address] MCV (RBC) [Entitic vol] 72.1 fL Low 83.5-101 [facility] Comment on above: Performed By: #### C MP, PHOS, MG, SCAN CBC #### [address] Mean Corpuscular HGB Conc 32.0 g/dL Low 32.5-35.6 [facility] Comment on above: Performed By: #### C MP, PHOS, MG, SCAN CBC #### [address] Monocytes (Bld) [#/Vol] 0.9 10*3/uL High 0.0-0.8 [facility] Comment on above: Performed By: #### C MP, PHOS, MG, SCAN CBC #### [address] Monocytes/100 WBC (Bld) 10.5 % Normal . [facility] Comment on above: Performed By: #### C MP, PHOS, MG, SCAN CBC #### [address] Neutrophils (Bld) [#/Vol] 7.3 10*3/uL Normal 1.8-7.7 [facility] Comment on above: Performed By: #### C MP, PHOS, MG, SCAN CBC #### [address] Neutrophils/100 WBC (Bld) 80.9 % Normal . [facility] Comment on above: Performed By: #### C MP, PHOS, MG, SCAN CBC #### [address] NRBC% 0.0 /100{WBC} Normal 0-0.5 [facility] Comment on above: Performed By: #### C MP, PHOS, MG, SCAN CBC #### [address] Platelet mean volume (Bld) [Entitic vol] 8.8 fL Normal 6.6-10.[address] [facility] Comment on above: Performed By: #### C MP, PHOS, MG, SCAN CBC #### [address] Platelets (Bld) [#/Vol] 201 10*3/uL Normal 150-450 [facility] Comment on above: Performed By: #### C MP, PHOS, MG, SCAN CBC #### [place] [address] [place] RBC (Bld) [#/Vol] 3.83 10*6/uL Low 3.90-5.60 [facility] Comment on above: Performed By: #### C MP, PHOS, MG, SCAN CBC #### [facility] [address] WBC (Bld) [#/Vol] 9.0 10*3/uL Normal 4.1-10.5 [facility] Comment on above: Performed By: #### C MP, PHOS, MG, SCAN CBC #### [facility] [address] Comprehensive Metabolic Pane guy 03-11-2024 Albumin [Mass/Vol] 3.5 g/dL Normal 3.5-5.7 [facility] Comment on above: Performed By: #### C MP, PHOS, MG, SCAN CBC #### [address] Albumin/Globulin [Mass ratio] 0.9 {ratio} Normal [facility] Comment on above: Performed By: #### C MP, PHOS, MG, SCAN CBC #### [address] ALP [Catalytic activity/Vol] 367 U/L High 34-104 [facility] Comment on above: Performed By: #### C MP, PHOS, MG, SCAN CBC #### [address] ALT [Catalytic activity/Vol] 59 U/L High 7-52 [facility] Comment on above: Performed By: #### C MP, PHOS, MG, SCAN CBC #### [address] Anion gap [Moles/Vol] 12.6 mmol/L Normal 6.0-15.0 [facility] Comment on above: Performed By: #### C MP, PHOS, MG, SCAN CBC #### [address] AST [Catalytic activity/Vol] 52 U/L High 13-39 [facility] Comment on above: Performed By: #### C MP, PHOS, MG, SCAN CBC #### [address] Bilirubin [Mass/Vol] 1.5 mg/dL High 0.3-1.0 [facility] Comment on above: Result Comment: Samp les from patients who have taken Naproxen have shown spurious elevation in Total Bilirubin levels. A metabolite of Naproxen, O-desmethylnaproxen, has been shown to interfere with the Jendrassik-Grof method for measuring Total Bilirubin. Performed By: #### C MP, PHOS, MG, SCAN CBC #### [address] Calcium [Mass/Vol] 8.8 mg/dL Normal 8.6-10.3 [facility] Comment on above: Performed By: #### C MP, PHOS, MG, SCAN CBC #### [address] Chloride [Moles/Vol] 104 mmol/L Normal 98-107 [facility] Comment on above: Performed By: #### C MP, PHOS, MG, SCAN CBC #### [address] CO2 [Moles/Vol] 23.0 mmol/L Normal 21.0-31.0 [facility] Comment on above: Performed By: #### C MP, PHOS, MG, SCAN CBC #### [address] Creatinine [Mass/Vol] 1.70 mg/dL High 0.70-1.30 [facility] Comment on above: Performed By: #### C MP, PHOS, MG, SCAN CBC #### [address] Creatinine Clr Calc Pharmacy 50.45 Normal [facility] Comment on above: Performed By: #### C MP, PHOS, MG, SCAN CBC #### [place] [address] [place] GFR/1.73 sq M.predicted MDRD (S/P/Bld) [Vol rate/Area] 46.151 mL/min/{1.73_m2} Normal [facility] Comment on above: Performed By: #### C MP, PHOS, MG, SCAN CBC #### [facility] [address] Globulin (S) [Mass/Vol] 3.7 g/dL Normal [facility] Comment on above: Performed By: #### C MP, PHOS, MG, SCAN CBC #### [address] Glucose [Mass/Vol] 150 mg/dL High 70-100 [facility] Comment on above: Result Comment: [facility] Glucose Reference Range is dependent on time and content of last meal. Glucose of more than 200 mg/dL in a nonstressed, ambulatory subject supports the diagnosis of Diabetes Mellitus. ADA recommended reference range Performed By: #### C MP, PHOS, MG, SCAN CBC #### [address] Potassium [Moles/Vol] 3.6 mmol/L Normal 3.5-5.1 [facility] Comment on above: Performed By: #### C MP, PHOS, MG, SCAN CBC #### [address] Protein [Mass/Vol] 7.2 g/dL Normal 6.4-8.9 [facility] Comment on above: Performed By: #### C MP, PHOS, MG, SCAN CBC #### [place] [address] [place] Sodium [Moles/Vol] 136 mmol/L Normal 136-145 [facility] Comment on above: Performed By: #### C MP, PHOS, MG, SCAN CBC #### [facility] [address] Urea nitrogen [Mass/Vol] 17 mg/dL Normal 7-25 [facility] Comment on above: Performed By: #### C MP, PHOS, MG, SCAN CBC #### [address] Glucose Poct Glucometerson 1 Glucose [Mass/Vol] 193 mg/dL Normal [facility] Comment on above: Result Comment: [place] Glucose Reference Range is dependent on time and content of last meal. Glucose of more than 200 mg/dL in a nonstressed, ambulatory subject supports the diagnosis of Diabetes Mellitus. PERFORMED BY: [place] [address] PATHOLOGIST DIRECTOR OF RECRUITMENT AND ADMISSIONS CLIFFORD LOBATO M.D. Performed By: #### C MP, PHOS, MG, SCAN CBC #### [address] Commemt1 Glu2: Cleaned Meter Normal [facility] Comment on above: Result Comment: PERF ORMED BY: [place] [address] PATHOLOGIST DIRECTOR OF RECRUITMENT AND ADMISSIONS CLIFFORD LOBATO M.D. Performed By: #### C MP, PHOS, MG, SCAN CBC #### [address] Glucose [Mass/Vol] 156 mg/dL Normal [facility] Comment on above: Result Comment: [facility] Glucose Reference Range is dependent on time and content of last meal. Glucose of more than 200 mg/dL in a nonstressed, ambulatory subject supports the diagnosis of Diabetes Mellitus. Performed By: #### C MP, PHOS, MG, SCAN CBC #### [address] Commemt1 Glu2: Cleaned Meter Normal [facility] Comment on above: Result Comment: PERF ORMED BY: [place] [address] PATHOLOGIST DIRECTOR OF RECRUITMENT AND ADMISSIONS CLIFFORD LOBATO M.D. Performed By: #### C MP, PHOS, MG, SCAN CBC #### [address] Glucose [Mass/Vol] 185 mg/dL Normal [facility] Comment on above: Result Comment: [place] Glucose Reference Range is dependent on time and content of last meal. Glucose of more than 200 mg/dL in a nonstressed, ambulatory subject supports the diagnosis of Diabetes Mellitus. Performed By: #### C MP, PHOS, MG, SCAN CBC #### [address] Glucose [Mass/Vol] 178 mg/dL Normal [facility] Comment on above: Result Comment: [place] Glucose Reference Range is dependent on time and content of last meal. Glucose of more than 200 mg/dL in a nonstressed, ambulatory subject supports the diagnosis of Diabetes Mellitus. PERFORMED BY: [place] [address] PATHOLOGIST DIRECTOR OF RECRUITMENT AND ADMISSIONS CLIFFORD LOBATO M.D. Performed By: #### C MP, PHOS, MG, SCAN CBC #### [address] Hep C Ab wRfx to Qnt PCRon 1 Hepatitis C Virus Antibody Non-Reactive Normal Non Reactive [facility] Comment on above: Performed By: #### C MP, PHOS, MG, SCAN CBC #### [address] Interpretation Hepatitis C Comment Normal . [facility] Comment on above: Result Comment: Not infected with HCV unless early or acute infection is suspected (which may be delayed in an immunocompromised individual), or other evidence exists to indicate HCV infection. Performed at: [facility] [id number] Supervisor [employer]: Uriel Borrero PhD, Phone: [phone] PERFORMED BY: [place] [address] PATHOLOGIST DIRECTOR OF RECRUITMENT AND ADMISSIONS CLIFFORD LOBATO M.D. Performed By: #### C MP, PHOS, MG, SCAN CBC #### [address] Hepatitis C virus IgG Ab [Pr esence] in Serum or Plasma by ImmunoassayOrdered By: Mike Burleson on 10-07-2024 HCV IgG IA Ql Non-Reactive Non Reactive [facility] MR abdomen wo/w conon 2023 MR abdomen wo/w con [facility] [place] [address] [place] [address] MRI Report Signed Patient: Solomon Pickard SR MR#: [id number] : 1965 Acct:[id number] Age/Sex: 58 / M ADM Date: 03/08/24 Loc: Room: [address] [place] [address] Type: ADM IN Attending Dr: João Powell MD Copies to: MD João Grant MD Ordering Provider: Mike Burleson MD Date of Service: 03/11/24 MR/MR abdomen wo/w con: r/o pancreatic lesions, ADD MRCP MRI OF THE ABDOMEN WITH AND WITHOUT CONTRAST: CLINICAL HISTORY: Elevated LFTs. Altered mental status COMPARISON: CT abdomen and pelvis 03/03/2024 TECHNIQUE: Multisequence, multiplanar imaging of the abdomen was obtained before and after the use of IV contrast. FINDINGS: The liver appears normal in contour and hepatic steatosis. No intrahepatic ductal dilatation is noted. No enhancing liver lesions are seen. Hepatic and portal veins appear patent. Calcified liver and splenic granulomas best seen on the prior CT study. Gallbladder appears unremarkable. No CBD dilatation is noted. No pancreatic divisum is present. The pancreas enhances homogeneously without evidence of mass or pancreatitis. Adrenal glands appear unremarkable. No enhancing renal mass or hydronephrosis. Cystic changes involving the kidneys. Abdominal aorta appears normal in caliber. No bulky lymphadenopathy or ascites. No pleural effusion. There appears be thickening involving the stomach wall. MR/MR abdomen wo/w con IMPRESSION: NO ACUTE ABDOMINAL PROCESS. HEPATIC STEATOSIS. THICKENING INVOLVING THE STOMACH WALL. CORRELATION WITH ENDOSCOPY IS SUGGESTED. Impression dictated by: Negro Marks Jr., D.O.03/11/2024 2:18 PM Dictation Location: [place] [address] Transcribed By: [facility] 03/11/24 1418 Dictated By: Negro Marks Jr, DO 03/11/24 1415 Signed By: 03/11/24 1418 Normal [facility] Magnesiumon 03-11-2024 Magnesium [Mass/Vol] 1.8 mg/dL Low 1.9-2.7 [facility] Comment on above: Result Comment: PERF ORMED BY: [place] [address] PATHOLOGIST DIRECTOR OF RECRUITMENT AND ADMISSIONS CLIFFORD LOBATO M.D. Performed By: #### C MP, PHOS, MG, SCAN CBC #### [facility] [address] [place] [address] No Panel InformationOrdered By: João Powell on 03-11-2024 Bedside Glucose Comment Glu2: cleaned meter [facility] Glu2: cleaned meter [facility] No Panel InformationOrdered By: Mike Burleson on 03-11-2024 Hepatitis C Interpretation Comment . [facility] Comment on above: Not infected with HC V unless early or acute infection issuspected (which may be delayed in an immunocompromisedindividual), or other evidence exists to indicate HCVinfection.Performed at: [facility] [place] [id number] Director: Uriel Borrero PhD, Phone: [phone] Comment . [facility] Phosphoruson 03-11-2024 Phosphate [Mass/Vol] 3.4 mg/dL Normal 2.5-4.5 [facility] Comment on above: Performed By: #### C MP, PHOS, MG, SCAN CBC #### [facility] [address] [place] [address] US liveron 03-11-2024 US liver [facility] [place] [address] [place] [address] Ultrasound Report Signed Patient: Solomon Pickard SR MR#: [id number] : 1965 Acct:[id number] Age/Sex: 58 / M ADM Date: 03/08/24 Loc: Room: [address] [place] [address] Type: ADM IN Attending Dr: João Powell MD Ordering Provider: oJão Powell MD Date of Service: 03/11/24 US/US liver: elevated LFTs Copies to: João Powell MD LIMITED ABDOMINAL ULTRASOUND: CLINICAL HISTORY: Elevated LFTs. COMPARISON: CT abdomen and pelvis 03/03/2024 TECHNIQUE: Grayscale and color Doppler images of the right upper quadrant organs were obtained. FINDINGS: Pancreas: Not visualized. Liver: Calcified granulomas. No solid mass or intrahepatic biliary duct dilatation. Gallbladder: Unremarkable. CBD: 3 mm. US/US liver IMPRESSION: NO ACUTE PROCESS. . Impression dictated by: Negro Marks Jr., D.O.03/11/2024 10:03 AM Dictation Location: [place] [address] Tech: Kait Stringer Transcribed By: PWS 03/11/24 1003 Dictated By: Negro Marks Jr DO 03/11/24 1002 Signed By: 03/11/24 1003 Normal [facility] Complete Blood Count Auto Di ffon 03-10-2024 Basophils (Bld) [#/Vol] 0.0 10*3/uL Normal 0.0-0.2 [facility] Comment on above: Result Comment: PERF ORMED BY: [place] [address] PATHOLOGIST DIRECTOR OF RECRUITMENT AND ADMISSIONS CLIFFORD LOBATO M.D. Performed By: #### C MP, PHOS, MG, SCAN CBC #### [address] Basophils/100 WBC (Bld) 0.3 % Normal . [facility] Comment on above: Performed By: #### C MP, PHOS, MG, SCAN CBC #### [address] Eosinophils (Bld) [#/Vol] 0.1 10*3/uL Normal 0.0-0.45 [facility] Comment on above: Performed By: #### C MP, PHOS, MG, SCAN CBC #### [place] [address] [place] Eosinophils/100 WBC (Bld) 0.8 % Normal . [facility] Comment on above: Performed By: #### C MP, PHOS, MG, SCAN CBC #### [facility] [address] [place] [address] Erythrocyte distribution width (RBC) [Ratio] 23.4 % High 12.0-14.8 [facility] Comment on above: Performed By: #### C MP, PHOS, MG, SCAN CBC #### [address] Hematocrit (Bld) [Volume fraction] 25.8 % Low 38.8-50.0 [facility] Comment on above: Performed By: #### C MP, PHOS, MG, SCAN CBC #### [address] Hemoglobin (Bld) [Mass/Vol] 8.4 g/dL Low 13.0-17.0 [facility] Comment on above: Performed By: #### C MP, PHOS, MG, SCAN CBC #### [address] Lymphocytes (Bld) [#/Vol] 0.7 10*3/uL Low 1.00-4.8 [facility] Comment on above: Performed By: #### C MP, PHOS, MG, SCAN CBC #### [address] Lymphocytes/100 WBC (Bld) 4.9 % Normal . [facility] Comment on above: Performed By: #### C MP, PHOS, MG, SCAN CBC #### [address] MCH (RBC) [Entitic mass] 23.1 pg Low 27.5-35.2 [facility] Comment on above: Performed By: #### C MP, PHOS, MG, SCAN CBC #### [address] MCV (RBC) [Entitic vol] 71.2 fL Low 83.5-101 [facility] Comment on above: Performed By: #### C MP, PHOS, MG, SCAN CBC #### [address] Mean Corpuscular HGB Conc 32.5 g/dL Normal 32.5-35.6 [facility] Comment on above: Performed By: #### C MP, PHOS, MG, SCAN CBC #### [address] Monocytes (Bld) [#/Vol] 1.5 10*3/uL High 0.0-0.8 [facility] Comment on above: Performed By: #### C MP, PHOS, MG, SCAN CBC #### [address] Monocytes/100 WBC (Bld) 10.6 % Normal . [facility] Comment on above: Performed By: #### C MP, PHOS, MG, SCAN CBC #### [address] Neutrophils (Bld) [#/Vol] 11.4 10*3/uL High 1.8-7.7 [facility] Comment on above: Performed By: #### C MP, PHOS, MG, SCAN CBC #### [address] Neutrophils/100 WBC (Bld) 83.4 % Normal . [facility] Comment on above: Performed By: #### C MP, PHOS, MG, SCAN CBC #### [address] NRBC% 0.2 /100{WBC} Normal 0-0.5 [facility] Comment on above: Performed By: #### C MP, PHOS, MG, SCAN CBC #### [place] [address] [place] Platelet mean volume (Bld) [Entitic vol] 8.9 fL Normal 6.6-10.[address] [facility] Comment on above: Performed By: #### C MP, PHOS, MG, SCAN CBC #### [place] [address] [place] Platelets (Bld) [#/Vol] 205 10*3/uL Normal 150-450 [facility] Comment on above: Performed By: #### C MP, PHOS, MG, SCAN CBC #### [place] [address] [place] RBC (Bld) [#/Vol] 3.62 10*6/uL Low 3.90-5.60 [facility] Comment on above: Performed By: #### C MP, PHOS, MG, SCAN CBC #### [address] WBC (Bld) [#/Vol] 13.7 10*3/uL High 4.1-10.5 [facility] Comment on above: Performed By: #### C MP, PHOS, MG, SCAN CBC #### [address] Comprehensive Metabolic Pane guy 03-10-2024 Albumin [Mass/Vol] 3.4 g/dL Low 3.5-5.7 [facility] Comment on above: Performed By: #### C MP, PHOS, MG, SCAN CBC #### [address] Albumin/Globulin [Mass ratio] 1.0 {ratio} Normal [facility] Comment on above: Performed By: #### C MP, PHOS, MG, SCAN CBC #### [address] ALP [Catalytic activity/Vol] 426 U/L High 34-104 [facility] Comment on above: Performed By: #### C MP, PHOS, MG, SCAN CBC #### [address] ALT [Catalytic activity/Vol] 78 U/L High 7-52 [facility] Comment on above: Performed By: #### C MP, PHOS, MG, SCAN CBC #### [facility] [address] [place] [address] Anion gap [Moles/Vol] 14.5 mmol/L Normal 6.0-15.0 Th [facility] Comment on above: Performed By: #### C MP, PHOS, MG, SCAN CBC #### [address] AST [Catalytic activity/Vol] 92 U/L High 13-39 [facility] Comment on above: Performed By: #### C MP, PHOS, MG, SCAN CBC #### [address] Bilirubin [Mass/Vol] 2.2 mg/dL High 0.3-1.0 [facility] Comment on above: Result Comment: Samp les from patients who have taken Naproxen have shown spurious elevation in Total Bilirubin levels. A metabolite of Naproxen, O-desmethylnaproxen, has been shown to interfere with the Jendrassik-Grof method for measuring Total Bilirubin. Performed By: #### C MP, PHOS, MG, SCAN CBC #### [address] Calcium [Mass/Vol] 8.3 mg/dL Low 8.6-10.3 [facility] Comment on above: Performed By: #### C MP, PHOS, MG, SCAN CBC #### [address] Chloride [Moles/Vol] 102 mmol/L Normal 98-107 [facility] Comment on above: Performed By: #### C MP, PHOS, MG, SCAN CBC #### [address] CO2 [Moles/Vol] 21.8 mmol/L Normal 21.0-31.0 [facility] Comment on above: Performed By: #### C MP, PHOS, MG, SCAN CBC #### [place] [address] [place] Creatinine [Mass/Vol] 1.81 mg/dL High 0.70-1.30 [facility] Comment on above: Performed By: #### C MP, PHOS, MG, SCAN CBC #### [place] [address] [place] Creatinine Clr Calc Pharmacy 47.38 Normal [facility] Comment on above: Performed By: #### C MP, PHOS, MG, SCAN CBC #### [place] [address] [place] GFR/1.73 sq M.predicted MDRD (S/P/Bld) [Vol rate/Area] 42.806 mL/min/{1.73_m2} Normal [facility] Comment on above: Performed By: #### C MP, PHOS, MG, SCAN CBC #### [address] Globulin (S) [Mass/Vol] 3.3 g/dL Normal [facility] Comment on above: Performed By: #### C MP, PHOS, MG, SCAN CBC #### [address] Glucose [Mass/Vol] 141 mg/dL High 70-100 [facility] Comment on above: Result Comment: [facility] Glucose Reference Range is dependent on time and content of last meal. Glucose of more than 200 mg/dL in a nonstressed, ambulatory subject supports the diagnosis of Diabetes Mellitus. ADA recommended reference range Performed By: #### C MP, PHOS, MG, SCAN CBC #### [address] Potassium [Moles/Vol] 3.3 mmol/L Low 3.5-5.1 [facility] Comment on above: Performed By: #### C MP, PHOS, MG, SCAN CBC #### [address] Protein [Mass/Vol] 6.7 g/dL Normal 6.4-8.9 [facility] Comment on above: Performed By: #### C MP, PHOS, MG, SCAN CBC #### [address] Sodium [Moles/Vol] 135 mmol/L Significant change down 136-145 [facility] Comment on above: Performed By: #### C MP, PHOS, MG, SCAN CBC #### [address] Urea nitrogen [Mass/Vol] 16 mg/dL Normal 7-25 [facility] Comment on above: Performed By: #### C MP, PHOS, MG, SCAN CBC #### [place] [id number] [facility] Gamma Glutamyl Transpeptidas keyla 03-10-2024 Amylase [Catalytic activity/Vol] 176 U/L High [facility] Comment on above: Result Comment: PERF ORMED BY: [place] [address] PATHOLOGIST DIRECTOR OF RECRUITMENT AND ADMISSIONS CLIFFORD LOBATO M.D. Performed By: #### C MP, PHOS, MG, SCAN CBC #### [place] [id number] [facility] Gamma glutamyl transferase [ Enzymatic activity/volume] in Serum or PlasmaOrdered By: João Powell on 03-10-2024 Gamma glutamyl transferase [Catalytic activity/Vol] 176 U/L [facility] Glucose Poct Glucometerson 1 Commemt1 Glu2: Cleaned Meter Normal [facility] Comment on above: Result Comment: PERF ORMED BY: [place] [address] PATHOLOGIST DIRECTOR OF RECRUITMENT AND ADMISSIONS CLIFFORD LOBATO M.D. Performed By: #### C MP, PHOS, MG, SCAN CBC #### [address] Glucose [Mass/Vol] 133 mg/dL Normal [facility] Comment on above: Result Comment: [facility] Glucose Reference Range is dependent on time and content of last meal. Glucose of more than 200 mg/dL in a nonstressed, ambulatory subject supports the diagnosis of Diabetes Mellitus. Performed By: #### C MP, PHOS, MG, SCAN CBC #### [address] Commemt1 Glu2: Cleaned Meter Normal [facility] Comment on above: Result Comment: PERF ORMED BY: [place] [address] PATHOLOGIST DIRECTOR OF RECRUITMENT AND ADMISSIONS CLIFFORD LOBATO M.D. Performed By: #### C MP, PHOS, MG, SCAN CBC #### [place] [id number] [place] Glucose [Mass/Vol] 294 mg/dL Normal [facility] Comment on above: Result Comment: [facility] Glucose Reference Range is dependent on time and content of last meal. Glucose of more than 200 mg/dL in a nonstressed, ambulatory subject supports the diagnosis of Diabetes Mellitus. Performed By: #### C MP, PHOS, MG, SCAN CBC #### [address] Glucose [Mass/Vol] 352 mg/dL Normal [facility] Comment on above: Result Comment: [place] Glucose Reference Range is dependent on time and content of last meal. Glucose of more than 200 mg/dL in a nonstressed, ambulatory subject supports the diagnosis of Diabetes Mellitus. PERFORMED BY: [place] [address] PATHOLOGIST DIRECTOR OF RECRUITMENT AND ADMISSIONS CLIFFORD LOBATO M.D. Performed By: #### C MP, PHOS, MG, SCAN CBC #### [address] Glucose [Mass/Vol] 174 mg/dL Normal [facility] Comment on above: Result Comment: [place] Glucose Reference Range is dependent on time and content of last meal. Glucose of more than 200 mg/dL in a nonstressed, ambulatory subject supports the diagnosis of Diabetes Mellitus. PERFORMED BY: [place] [address] PATHOLOGIST DIRECTOR OF RECRUITMENT AND ADMISSIONS CLIFFORD LOBATO M.D. Performed By: #### C MP, PHOS, MG, SCAN CBC #### [address] Magnesiumon 03-10-2024 Magnesium [Mass/Vol] 1.4 mg/dL Low 1.9-2.7 [facility] Comment on above: Result Comment: PERF ORMED BY: [place] [address] PATHOLOGIST DIRECTOR OF RECRUITMENT AND ADMISSIONS CLIFFORD LOBATO M.D. Performed By: #### C MP, PHOS, MG, SCAN CBC #### [address] T-icspae-I-Aspartate IgG, Se gladis 03-10-2024 F-ypxchm-HTyjjgvtqt IgG, Serum Negative Normal Negative [facility] Comment on above: Result Comment: This test was developed and its performance characteristics determined by [facility]. It has not been cleared or approved by the Food and Drug Administration. The [facility]-sponsored ExTINGUISH Trial (activity and safety of Inebilizumab in anti-NMDAR encephalitis) is actively recruiting patients. You may consider enrolling your patient in the clinical trial if the result of this test is positive. To learn more, or to refer your patient, call 870- [phone] ([phone], study hotline) or see ClinicalTrials.gov (study ID, [id number]). Performed at: [facility] [address] [id number] Supervisor [employer]: Chrissy Wong MD, Phone: [phone] PERFORMED BY: [facility] [address] [place] [id number] PATHOLOGIST DIRECTOR OF RECRUITMENT AND ADMISSIONS CLIFFORD LOBATO M.D. Performed By: #### G LULS #### Point of Care testing , No Panel InformationOrdered By: Job James on 03-10-2024 U-Ewdnuf-X-Aspartate Recept IgG Ab Negative Negative [facility] Comment on above: This test was develo ped and its performance characteristicsdetermined by [facility]. It has not been cleared orapproved by the Food and Drug Administration.The [facility]-sponsored ExTINGUISH Trial (activity and safety ofInebilizumab in anti-NMDAR encephalitis) is activelyrecruiting patients. You may consider enrolling yourpatient in the clinical trial if the result of this test ispositive. To learn more, or to refer your patient, call [phone] ([phone], study hotline) or seeinicalTrials.gov (study ID, [id number]).Performed at: [facility] [address] [id number] Director: Chrissy Wong MD, Phone: [phone] Negative Negative [facility] Phosphoruson 03-10-2024 Phosphate [Mass/Vol] 3.1 mg/dL Normal 2.5-4.5 [facility] Comment on above: Performed By: #### C MP, PHOS, MG, SCAN CBC #### [address] Complete Blood Count Auto Di ffon 03-09-2024 Basophils (Bld) [#/Vol] 0.1 10*3/uL Normal 0.0-0.2 [facility] Comment on above: Result Comment: PERF ORMED BY: [place] [address] PATHOLOGIST DIRECTOR OF RECRUITMENT AND ADMISSIONS CLIFFORD LOBATO M.D. Performed By: #### C MP, PHOS, MG, SCAN CBC #### [address] Basophils/100 WBC (Bld) 1.2 % Normal . [facility] Comment on above: Performed By: #### C MP, PHOS, MG, SCAN CBC #### [address] Eosinophils (Bld) [#/Vol] 0.2 10*3/uL Normal 0.0-0.45 [facility] Comment on above: Performed By: #### C MP, PHOS, MG, SCAN CBC #### [address] Eosinophils/100 WBC (Bld) 2.5 % Normal . [facility] Comment on above: Performed By: #### C MP, PHOS, MG, SCAN CBC #### [address] Erythrocyte distribution width (RBC) [Ratio] 21.9 % High 12.0-14.8 [facility] Comment on above: Performed By: #### C MP, PHOS, MG, SCAN CBC #### [address] Hematocrit (Bld) [Volume fraction] 27.8 % Low 38.8-50.0 [facility] Comment on above: Performed By: #### C MP, PHOS, MG, SCAN CBC #### [address] Hemoglobin (Bld) [Mass/Vol] 8.9 g/dL Low 13.0-17.0 [facility] Comment on above: Performed By: #### C MP, PHOS, MG, SCAN CBC #### [address] Lymphocytes (Bld) [#/Vol] 1.8 10*3/uL Normal 1.00-4.8 [facility] Comment on above: Performed By: #### C MP, PHOS, MG, SCAN CBC #### [address] Lymphocytes/100 WBC (Bld) 20.9 % Normal . [facility] Comment on above: Performed By: #### C MP, PHOS, MG, SCAN CBC #### [address] MCH (RBC) [Entitic mass] 22.7 pg Low 27.5-35.2 [facility] Comment on above: Performed By: #### C MP, PHOS, MG, SCAN CBC #### [address] MCV (RBC) [Entitic vol] 70.7 fL Low 83.5-101 [facility] Comment on above: Performed By: #### C MP, PHOS, MG, SCAN CBC #### [address] Mean Corpuscular HGB Conc 32.1 g/dL Low 32.5-35.6 [facility] Comment on above: Performed By: #### C MP, PHOS, MG, SCAN CBC #### [address] Monocytes (Bld) [#/Vol] 1.0 10*3/uL High 0.0-0.8 [facility] Comment on above: Performed By: #### C MP, PHOS, MG, SCAN CBC #### [address] Monocytes/100 WBC (Bld) 10.9 % Normal . [facility] Comment on above: Performed By: #### C MP, PHOS, MG, SCAN CBC #### [address] Neutrophils (Bld) [#/Vol] 5.6 10*3/uL Normal 1.8-7.7 [facility] Comment on above: Performed By: #### C MP, PHOS, MG, SCAN CBC #### [address] Neutrophils/100 WBC (Bld) 64.5 % Normal . [facility] Comment on above: Performed By: #### C MP, PHOS, MG, SCAN CBC #### [address] NRBC% 0.2 /100{WBC} Normal 0-0.5 [facility] Comment on above: Performed By: #### C MP, PHOS, MG, SCAN CBC #### [address] Platelet mean volume (Bld) [Entitic vol] 8.7 fL Normal 6.6-10.[address] [facility] Comment on above: Performed By: #### C MP, PHOS, MG, SCAN CBC #### [place] [address] [place] Platelets (Bld) [#/Vol] 265 10*3/uL Normal 150-450 [facility] Comment on above: Performed By: #### C MP, PHOS, MG, SCAN CBC #### [place] [address] [place] RBC (Bld) [#/Vol] 3.93 10*6/uL Normal 3.90-5.60 [facility] Comment on above: Performed By: #### C MP, PHOS, MG, SCAN CBC #### [place] [address] [place] WBC (Bld) [#/Vol] 8.8 10*3/uL Normal 4.1-10.5 [facility] Comment on above: Performed By: #### C MP, PHOS, MG, SCAN CBC #### [address] Comprehensive Metabolic Pane guy 03-09-2024 Albumin [Mass/Vol] 3.5 g/dL Normal 3.5-5.7 [facility] Comment on above: Performed By: #### C MP, PHOS, MG, SCAN CBC #### [address] Albumin/Globulin [Mass ratio] 1.0 {ratio} Normal [facility] Comment on above: Performed By: #### C MP, PHOS, MG, SCAN CBC #### [address] ALP [Catalytic activity/Vol] 110 U/L High 34-104 [facility] Comment on above: Performed By: #### C MP, PHOS, MG, SCAN CBC #### [address] ALT [Catalytic activity/Vol] 10 U/L Normal 7-52 [facility] Comment on above: Performed By: #### C MP, PHOS, MG, SCAN CBC #### [address] Anion gap [Moles/Vol] 14.9 mmol/L Normal 6.0-15.0 Th e [facility] Comment on above: Performed By: #### C MP, PHOS, MG, SCAN CBC #### [address] AST [Catalytic activity/Vol] 14 U/L Normal 13-39 [facility] Comment on above: Performed By: #### C MP, PHOS, MG, SCAN CBC #### [address] Bilirubin [Mass/Vol] 0.5 mg/dL Normal 0.3-1.0 [facility] Comment on above: Performed By: #### C MP, PHOS, MG, SCAN CBC #### [place] [address] [address] Calcium [Mass/Vol] 9.0 mg/dL Normal 8.6-10.3 [facility] Comment on above: Performed By: #### C MP, PHOS, MG, SCAN CBC #### [facility] [address] Chloride [Moles/Vol] 110 mmol/L High 98-107 [facility] Comment on above: Performed By: #### C MP, PHOS, MG, SCAN CBC #### [address] CO2 [Moles/Vol] 20.8 mmol/L Low 21.0-31.0 [facility] Comment on above: Performed By: #### C MP, PHOS, MG, SCAN CBC #### [address] Creatinine [Mass/Vol] 1.80 mg/dL High 0.70-1.30 [facility] Comment on above: Performed By: #### C MP, PHOS, MG, SCAN CBC #### [place] [address] [place] Creatinine Clr Calc Pharmacy 47.64 Normal [facility] Comment on above: Performed By: #### C MP, PHOS, MG, SCAN CBC #### [address] GFR/1.73 sq M.predicted MDRD (S/P/Bld) [Vol rate/Area] 43.092 mL/min/{1.73_m2} Normal [facility] Comment on above: Performed By: #### C MP, PHOS, MG, SCAN CBC #### [place] [address] [place] Globulin (S) [Mass/Vol] 3.5 g/dL Normal [facility] Comment on above: Performed By: #### C MP, PHOS, MG, SCAN CBC #### [place] [address] [place] Glucose [Mass/Vol] 91 mg/dL Normal 70-100 [facility] Comment on above: Result Comment: [facility] Glucose Reference Range is dependent on time and content of last meal. Glucose of more than 200 mg/dL in a nonstressed, ambulatory subject supports the diagnosis of Diabetes Mellitus. ADA recommended reference range Performed By: #### C MP, PHOS, MG, SCAN CBC #### [address] Potassium [Moles/Vol] 3.7 mmol/L Normal 3.5-5.1 [facility] Comment on above: Performed By: #### C MP, PHOS, MG, SCAN CBC #### [address] Protein [Mass/Vol] 7.0 g/dL Normal 6.4-8.9 [facility] Comment on above: Performed By: #### C MP, PHOS, MG, SCAN CBC #### [address] Sodium [Moles/Vol] 142 mmol/L Normal 136-145 [facility] Comment on above: Performed By: #### C MP, PHOS, MG, SCAN CBC #### [address] Urea nitrogen [Mass/Vol] 19 mg/dL Normal 7-25 [facility] Comment on above: Performed By: #### C MP, PHOS, MG, SCAN CBC #### [address] Glucose Poct Glucometerson 1 Glucose [Mass/Vol] 386 mg/dL Normal [facility] Comment on above: Result Comment: [facility] Glucose Reference Range is dependent on time and content of last meal. Glucose of more than 200 mg/dL in a nonstressed, ambulatory subject supports the diagnosis of Diabetes Mellitus. PERFORMED BY: [place] [address] PATHOLOGIST DIRECTOR OF RECRUITMENT AND ADMISSIONS CLIFFORD LOBATO M.D. Performed By: #### C MP, PHOS, MG, SCAN CBC #### [address] Commemt1 Glu2: Cleaned Meter Normal [facility] Comment on above: Result Comment: PERF ORMED BY: [place] [address] PATHOLOGIST DIRECTOR OF RECRUITMENT AND ADMISSIONS CLIFFORD LOBATO M.D. Performed By: #### C MP, PHOS, MG, SCAN CBC #### [address] Glucose [Mass/Vol] 128 mg/dL Normal [facility] Comment on above: Result Comment: [facility] Glucose Reference Range is dependent on time and content of last meal. Glucose of more than 200 mg/dL in a nonstressed, ambulatory subject supports the diagnosis of Diabetes Mellitus. Performed By: #### C MP, PHOS, MG, SCAN CBC #### [address] Glucose [Mass/Vol] 119 mg/dL Normal [facility] Comment on above: Result Comment: [place] Glucose Reference Range is dependent on time and content of last meal. Glucose of more than 200 mg/dL in a nonstressed, ambulatory subject supports the diagnosis of Diabetes Mellitus. PERFORMED BY: [place] [address] PATHOLOGIST DIRECTOR OF RECRUITMENT AND ADMISSIONS CLIFFORD LOBATO M.D. Performed By: #### C MP, PHOS, MG, SCAN CBC #### [address] Magnesiumon 03-09-2024 Magnesium [Mass/Vol] 1.5 mg/dL Low 1.9-2.7 [facility] Comment on above: Result Comment: PERF ORMED BY: [place] [address] PATHOLOGIST DIRECTOR OF RECRUITMENT AND ADMISSIONS CLIFFORD LOBATO M.D. Performed By: #### C MP, PHOS, MG, SCAN CBC #### [address] Phosphoruson 03-09-2024 Phosphate [Mass/Vol] 3.1 mg/dL Normal 2.5-4.5 [facility] Comment on above: Performed By: #### C MP, PHOS, MG, SCAN CBC #### [address] US renal BIon 03-09-2024 US renal BI [facility] [place] [address] [place] [address] Ultrasound Report Signed Patient: Solomon Pickard SR MR#: [id number] : 1965 Acct:[id number] Age/Sex: 58 / M ADM Date: 03/08/24 Loc: 3T Room: [address] [place] [address] Type: ADM IN Attending Dr: João Powell MD Ordering Provider: João Powell MD Date of Service: 03/09/24 US/US renal BI: ROEL Copies to: João Powell MD BILATERAL RENAL AND BLADDER ULTRASOUND CLINICAL HISTORY: Acute kidney injury COMPARISON: CT abdomen and pelvis 03/03/2024 FINDINGS: Estimation of renal size is approximately 10.41 cm on the right and 10.05 cm on the left. No contour deforming mass, shadowing stone or hydronephrosis. The urinary bladder is partially distended with a volume of 820.05 ml. No shadowing stone or focal lesion. US/US renal BI IMPRESSION: No acute findings. Impression dictated by: Negro Marks Jr., D.O.03/09/2024 3:59 PM Dictation Location: [place] [address] Tech: Marybel Casillas Transcribed By: BOB 03/09/24 1559 Dictated By: Negro Marks Jr, DO 03/09/24 1558 Signed By: 03/09/24 1559 Normal [facility] XR elbow LT 2Von 03-09-2024 XR elbow LT 2V [facility] [place] [address] XRay Report Signed Patient: Solomon Pickard SR MR#: [id number] : 1965 Acct:[id number] Age/Sex: 58 / M ADM Date: 03/08/24 Loc: 3T Room: [address] [place] [address] Type: ADM IN Attending Dr: João Powell MD Copies to: João Powell MD Ordering Provider: João Powell MD Date of Service: 03/09/24 XR/XR elbow LT 2V: s/p fall, left arm pain ([id number]) XR/XR shoulder LT min 2V*: s/p fall, left arm pain LEFT SHOULDER - - 3 views, left elbow 2 views CLINICAL HISTORY: Fall yesterday. Left shoulder and elbow pain. COMPARISON: None FINDINGS: Left shoulder: Mild degenerative changes of the AC and glenohumeral joints without acute bony process. Partially visualized right lung demonstrate questionable airspace disease versus overlapping shadows likely within the right lower lobe. Next Left elbow: No elbow joint effusion or acute bony process. IV site is in place. Olecranon spurring. XR/XR shoulder LT min 2V* IMPRESSION: MILD DEGENERATIVE CHANGES OF THE LEFT SHOULDER WITHOUT ACUTE BONY PROCESS. MILD DEGENERATIVE CHANGES INVOLVING THE LEFT ELBOW WITHOUT ACUTE BONY PROCESS. OVERLAPPING SHADOWS VERSUS AIRSPACE DISEASE INVOLVING THE VISUALIZED RIGHT LUNG. Impression dictated by: Negro Marks Jr., D.OMary03/09/2024 3:08 PM Dictation Location: [facility]15 Transcribed By: [facility] 03/09/24 1508 Dictated By: Negro Marks Jr, DO 03/09/24 1506 Signed By: 03/09/24 1508 Normal [facility] Activated partial thrombopla stin time (aPTT) in platelet poor plasma by coagulation aOrdered By: Anh Rubin on 03-08-2024 aPTT Coag (PPP) [Time] 29.6 s 25.1-36.5 [facility] Comment on above: A hematocrit value g reater than 55% may lead to inaccurate results in coagulation testing. Patients having hematocrit values >55% require a special collection tube for coagulation studies. Please contact the laboratory at [phone] for redraw instructions. Alanine aminotransferase [En zymatic activity/volume] in Serum or PlasmaOrdered By: Anh Rubin on 03-08-2024 ALT [Catalytic activity/Vol] 13 U/L Normal 7-52 [facility] Comment on above: Performed By: #### G LULS #### Point of Care testing , Albumin [Mass/volume] in Ser um or Plasma by Bromocresol green (BCG) dye binding methoOrdered By: Anh Rubin on 03-08-2024 Albumin BCG dye [Mass/Vol] 3.8 g/dL 3.5-5.7 [facility] Alkaline phosphatase [Enzyma tic activity/volume] in Serum or PlasmaOrdered By: Anh Rubin on 03-08-2024 ALP [Catalytic activity/Vol] 116 U/L High 34-104 [facility] Comment on above: Performed By: #### G LULS #### Point of Care testing , Ammonia [Moles/volume] in Pl asmaOrdered By: João Powell on 03-08-2024 Ammonia (P) [Moles/Vol] 33 umol/L 11-35 [facility] Comment on above: Result Comment: PERF ORMED BY: [place] [address] PATHOLOGIST DIRECTOR OF RECRUITMENT AND ADMISSIONS CLIFFORD LOBATO M.D. Performed By: #### C MP, PHOS, MG, SCAN CBC #### [facility] [address] [place] [address] Amphetamine Screen Ql (U)Ord ered By: Anh Rubin on 03-08-2024 Amphetamines Ql (U) Negative Negative [facility] Arterial Blood Gason 024 ABG Base Excess -1.4 mmol/L Normal -3.0-3.0 [facility] Comment on above: Performed By: #### C MP, PHOS, MG, SCAN CBC #### [facility] [address] [place] [address] ABG Frac Inspired O2 21 % Normal [facility] Comment on above: Performed By: #### C MP, PHOS, MG, SCAN CBC #### [facility] [address] [place] [address] ABG Oxygen Content 6.4 mmol/L Low 6.6-9.7 [facility] Comment on above: Performed By: #### C MP, PHOS, MG, SCAN CBC #### [address] ABG Oxygen Saturation 97.1 % Normal 95.0-100.0 [facility] Comment on above: Performed By: #### C MP, PHOS, MG, SCAN CBC #### [address] ABG PCO2 33.3 mm[Hg] Low 35.0-45.0 [facility] Comment on above: Performed By: #### C MP, PHOS, MG, SCAN CBC #### [address] ABG PH 7.44 Normal 7.35-7.45 [facility] Comment on above: Performed By: #### C MP, PHOS, MG, SCAN CBC #### [address] ABG PO2 92.6 mm[Hg] Normal 80.0-100.0 [facility] Comment on above: Performed By: #### C MP, PHOS, MG, SCAN CBC #### [address] Respiratory Critical Normal [facility] Comment on above: Result Comment: Crit ical Value called on: 03/08/2024 at 15:16 PERFORMED BY: [place] [address] PATHOLOGIST DIRECTOR OF RECRUITMENT AND ADMISSIONS CLIFFORD LOBATO M.D. Performed By: #### C MP, PHOS, MG, SCAN CBC #### [address] VBG Draw Site Left Radial Normal [facility] Comment on above: Performed By: #### C MP, PHOS, MG, SCAN CBC #### [address] Arterial Blood GasOrdered By : Anh Rubin on 03-08-2024 CO2 [Moles/Vol] 23.2 mmol/L 23.0-27.0 [facility] Comment on above: Performed By: #### C MP, PHOS, MG, SCAN CBC #### [facility] [address] HCO3 (Bld) [Moles/Vol] 22.2 mmol/L Low 23.0-29.0 [facility] Comment on above: Performed By: #### C MP, PHOS, MG, SCAN CBC #### [facility] [address] [place] [address] Aspartate aminotransferase [ Enzymatic activity/volume] in Serum or PlasmaOrdered By: Anh Rubin on 03-08-2024 AST [Catalytic activity/Vol] 14 U/L Normal 13-39 [facility] Comment on above: Performed By: #### G LULS #### Point of Care testing , Automated basophil %Ordered By: Anh Rubin on 03-08-2024 Basophils/100 WBC (Bld) 1.0 % Normal . [facility] Comment on above: Performed By: #### G LULS #### Point of Care testing , Automated basophil countOrde red By: Anh Rubin on 03-08-2024 Basophils (Bld) [#/Vol] 0.1 10*3/uL Normal 0.0-0.2 [facility] Comment on above: Result Comment: PERF ORMED BY: [place] [address] PATHOLOGIST DIRECTOR OF RECRUITMENT AND ADMISSIONS CLIFFORD LOBATO M.D. Performed By: #### G LULS #### Point of Care testing , Automated blood monocyte cou ntOrdered By: Anh Rubin on 03-08-2024 Monocytes (Bld) [#/Vol] 1.2 10*3/uL High 0.0-0.8 [facility] Comment on above: Performed By: #### G LULS #### Point of Care testing , Automated eosinophil %Ordere d By: Anh Rubin on 03-08-2024 Eosinophils/100 WBC (Bld) 3.3 % Normal . [facility] Comment on above: Performed By: #### G LULS #### Point of Care testing , Automated eosinophil countOr dered By: Anh Rubin on 03-08-2024 Eosinophils (Bld) [#/Vol] 0.3 10*3/uL Normal 0.0-0.45 [facility] Comment on above: Performed By: #### G LULS #### Point of Care testing , Automated monocyte %Ordered By: Anh Rubin on 03-08-2024 Monocytes/100 WBC (Bld) 13.2 % Normal . [facility] Comment on above: Performed By: #### G LULS #### Point of Care testing , Automated neutrophil %Ordere d By: Anh Rubin on 03-08-2024 Neutrophils/100 WBC (Bld) 69.4 % Normal . [facility] Comment on above: Performed By: #### G LULS #### Point of Care testing , Bacterial blood cultureOrder ed By: Anh Rubin on 03-08-2024 Bacteria identified Cx Nom (Bld) NO GROWTH 5 DAYS [facility] Bacteria identified Cx Nom (Bld) NO GROWTH 5 DAYS [facility] Barbiturates [Presence] in U rine by Screen methodOrdered By: Anh Rubin on 03-08-2024 Barbiturates Screen Ql (U) Negative Negative [facility] Benzodiazepines Screen Ql (U )Ordered By: Anh Rubin on 03-08-2024 Benzodiazepines Ql (U) Negative Negative [facility] Benzoylecgonine [Presence] i n Urine by Screen methodOrdered By: Anh Rubin on 03-08-2024 Benzoylecgonine Screen Ql (U) Negative Negative [facility] Bilirubin Test strip Ql (U)O rdered By: Anh Rubin on 03-08-2024 Bilirubin Ql (U) Negative Negative [facility] Bilirubin.total [Mass/volume ] in Serum or PlasmaOrdered By: Anh Rubin on 03-08-2024 Bilirubin [Mass/Vol] 0.4 mg/dL Normal 0.3-1.0 [facility] Comment on above: Performed By: #### G LULS #### Point of Care testing , BioFire Not Detectedon 03-08 BioFire Not Detected Not detected Normal Not Detecte [facility] Comment on above: Result Comment: This is a duplicate RP2.1 COVID (PCR) result to be used for statistical tracking purpose only. PERFORMED BY: [place] [address] PATHOLOGIST DIRECTOR OF RECRUITMENT AND ADMISSIONS CLIFFORD LOBATO M.D. Performed By: #### C MP, PHOS, MG, SCAN CBC #### [facility] [address] [place] [address] Blood Cultureon 03-08-2024 Bacteria identified Cx Nom (Bld) NO GROWTH 5 DAYS PERFORMED BY: [place] [address] PATHOLOGIST DIRECTOR OF RECRUITMENT AND ADMISSIONS CLIFFORD LOBATO M.D. Normal [facility] Comment on above: Performed By: #### C MP, PHOS, MG, SCAN CBC #### [facility] [address] [place] [address] Bacteria identified Cx Nom (Bld) NO GROWTH 5 DAYS PERFORMED BY: [place] [address] PATHOLOGIST DIRECTOR OF RECRUITMENT AND ADMISSIONS CLIFFORD LOBATO M.D. Normal [facility] Comment on above: Performed By: #### C MP, PHOS, MG, SCAN CBC #### [facility] [address] [place] [address] COVID-19 Detected/Not Detect edOrdered By: Anh Rubin on 03-08-2024 SARS-CoV-2 (COVID-19) RNA NELLY+non-probe Ql (Nph) Not detected Not Detecte [facility] Comment on above: This is a duplicate RP2.1 COVID (PCR) result to be used for statistical tracking purpose only. CT angio headon 03-08-2024 CT angio head [facility] [place] [address] CT Scan Report Signed Patient: Solomon Pickard SR MR#: [id number] : 1965 Acct:[id number] Age/Sex: 58 / M ADM Date: 03/08/24 Loc: ER Room: Type: [facility] ER Attending Dr: Copies to: Anh Rubin DO Ordering Provider: Anh Rubin DO Date of Service: 03/08/24 CT/CT head stroke alert wo con: stroke ([id number]) CT/CT angio head: f ([id number]) CT/CT angio neck: f CT head stroke alert wo con, CT angio neck, CT angio head 03/08/2024 2:15 PM SIGNS AND SYMPTOMS: Right pupil nonreactive. Altered mental status. TECHNIQUE: Multi-detector CT angiography axial slices of the head and neck were obtained before and during intravenous administration of IV contrast material. Sagittal, coronal, and 3-D reconstructions were performed and viewed on a separate workstation. CT was performed with one or more of the following dose reduction techniques: Automated exposure control, adjustment of the mA and/or kV according to patient size, or use of iterative reconstruction technique. Stenoses were measured using the NASCET criteria. COMPARISON: CT brain 03/03/2024 FINDINGS: Noncontrast head CT: There is no evidence of midline shift, intra or extra-axial fluid collection, hemorrhage or CT evidence of stroke. Cortical atrophy with chronic microvascular ischemic changes. Posterior fossa appears unremarkable. Visualized intraorbital contents demonstrate no acute findings. Visualized paranasal sinuses are clear. The surrounding soft tissues are normal. Findings were discussed with Dr. Rubin 2:30 PM 03/08/2024 CTA HEAD: Posterior inferior cerebellar arteries : patent Basilar artery: patent Superior cerebellar arteries: patent Posterior cerebral arteries: patent Intracranial segments of the internal carotid arteries: Moderate calcification without critical stenosis or occlusion. MCA: patent NELY: patent Anterior Communicating artery: patent Posterior Communicating arteries: Not clearly visualized. CTA NECK: Vertebral arteries : Right vertebral artery dominance. Mild calcification V4 segment right vertebral artery causing no critical stenosis or occlusion. Common Carotid arteries: patent Internal Carotid arteries: Mild calcification and soft plaquing involving the carotid bulbs. ICAs appear unremarkable. No gross central airway mass. No soft tissue swelling is seen. No lymphadenopathy. Osseous structures demonstrate degenerative change. CT/CT head stroke alert wo con IMPRESSION: No acute intracranial pathology. No evidence of critical stenosis, aneurysmal dilatation, dissection or occlusion. Impression dictated by: Negro Marks Jr., D.O.03/08/2024 2:41 PM Dictation Location: [place] [address] Transcribed By: [facility] 03/08/24 1441 Dictated By: Negro Marks Jr, DO 03/08/24 1425 Signed By: 03/08/24 1441 [facility] Calcium [Mass/volume] in Ser um or PlasmaOrdered By: Anh Rubin on 03-08-2024 Calcium [Mass/Vol] 9.6 mg/dL Normal 8.6-10.3 [facility] Comment on above: Performed By: #### G LULS #### Point of Care testing , Cannabinoids [Presence] in U rine by Screen methodOrdered By: Anh Rubin on 03-08-2024 Cannabinoids Screen Ql (U) Negative Negative [facility] Comment on above: These are unconfirme d results and should not be used for legal purposes. Drug Cut-Off Concentration: AMPH 1000 ng/mL JERMAINE 200 ng/mL SAVANNAH 200 ng/mL COCM 300 ng/mL OP 300 ng/mL PCP 25 ng/mL THC 20 ng/mL Capillary blood glucose ashley urement by glucometer (mass/volume)Ordered By: Anh Rubin on 03-08-2024 Glucose [Mass/Vol] 182 mg/dL Normal [facility] Comment on above: Result Comment: [facility] Glucose Reference Range is dependent on time and content of last meal. Glucose of more than 200 mg/dL in a nonstressed, ambulatory subject supports the diagnosis of Diabetes Mellitus. PERFORMED BY: [place] [address] PATHOLOGIST DIRECTOR OF RECRUITMENT AND ADMISSIONS CLIFFORD LOBATO M.D. Performed By: #### C MP, PHOS, MG, SCAN CBC #### [facility] [address] [place] [address] Carbon dioxide, total [Moles /volume] in Serum or PlasmaOrdered By: Anh Rubin on 03-08-2024 CO2 [Moles/Vol] 25.0 mmol/L Normal 21.0-31.0 [facility] Comment on above: Performed By: #### G LULS #### Point of Care testing , Chloride [Moles/volume] in S ilia or PlasmaOrdered By: Anh Rubin on 03-08-2024 Chloride [Moles/Vol] 106 mmol/L Normal 98-107 [facility] Comment on above: Performed By: #### G LULS #### Point of Care testing , Color of Urine by AutoOrdere d By: Anh Rubin on 03-08-2024 Color (U) Light-yellow Yellow [facility] Comment on above: Order Comment: Name Collection Type:: Straight Catheter Performed By: #### C MP, PHOS, MG, SCAN CBC #### [address] Complete Blood Count Auto Di ffon 03-08-2024 Mean Corpuscular HGB Conc 32.0 g/dL Low 32.5-35.6 [facility] Comment on above: Performed By: #### G LULS #### Point of Care testing , Monocytes/100 WBC (Bld) 18.68 % Normal 0.00-20.00 [facility] Comment on above: Performed By: #### G LULS #### Point of Care testing , NRBC% 0.2 /100{WBC} Normal 0-0.5 [facility] Comment on above: Performed By: #### G LULS #### Point of Care testing , Comprehensive Metabolic Pane guy 03-08-2024 Albumin [Mass/Vol] 3.8 g/dL Normal 3.5-5.7 [facility] Comment on above: Performed By: #### G LULS #### Point of Care testing , Creatinine Clr Calc Pharmacy 44.90 Normal [facility] Comment on above: Result Comment: PERF ORMED BY: [place] [address] PATHOLOGIST DIRECTOR OF RECRUITMENT AND ADMISSIONS CLIFFORD LOBATO M.D. Performed By: #### G LULS #### Point of Care testing , GFR/1.73 sq M.predicted MDRD (S/P/Bld) [Vol rate/Area] 40.131 mL/min/{1.73_m2} Normal [facility] Comment on above: Performed By: #### G LULS #### Point of Care testing , Creatine kinase [Enzymatic a ctivity/volume] in Serum or PlasmaOrdered By: Anh Rubin on 03-08-2024 CK [Catalytic activity/Vol] 181 U/L 30-223 [facility] Comment on above: Performed By: #### G LULS #### Point of Care testing , Creatinine [Mass/volume] in Serum or PlasmaOrdered By: Anh Rubin on 03-08-2024 Creatinine [Mass/Vol] 1.91 mg/dL High 0.70-1.30 [facility] Comment on above: Performed By: #### G LULS #### Point of Care testing , Drug Screen,Urineon 03-08-20 24 Amphetamine Screen,Urine Negative Normal Negative [facility] Comment on above: Performed By: #### C MP, PHOS, MG, SCAN CBC #### [address] Barbiturate Screen,Urine Negative Normal Negative [facility] Comment on above: Performed By: #### C MP, PHOS, MG, SCAN CBC #### [address] Benzodiazepines Screen,Urine Negative Normal Negative [facility] Comment on above: Performed By: #### C MP, PHOS, MG, SCAN CBC #### [address] Cannabinoid Screen,Urine Negative Normal Negative [facility] Comment on above: Result Comment: Thes e are unconfirmed results and should not be used for legal purposes. Drug Cut-Off Concentration: AMPH 1000 ng/mL JERMAINE 200 ng/mL SAVANNAH 200 ng/mL COCM 300 ng/mL OP 300 ng/mL PCP 25 ng/mL THC 20 ng/mL PERFORMED BY: [place] [address] PATHOLOGIST DIRECTOR OF RECRUITMENT AND ADMISSIONS CLIFFORD LOBATO M.D. Performed By: #### C MP, PHOS, MG, SCAN CBC #### [address] Cocaine Screen,Urine Negative Normal Negative [facility] Comment on above: Performed By: #### C MP, PHOS, MG, SCAN CBC #### [address] Opiate Screen,Urine Negative Normal Negative [facility] Comment on above: Performed By: #### C MP, PHOS, MG, SCAN CBC #### [facility] [address] [place] [address] Phencyclidine Screen,Urine Negative Normal Negative [facility] Comment on above: Performed By: #### C MP, PHOS, MG, SCAN CBC #### [facility] [address] [place] [address] [place] ECG 12 lead ECGon 03-08-2024 ECG 12 lead ECG [facility] [place] [address] [place] [address] Electrocardiograph Report Signed Patient: Solomon Pickard SR MR#: [id number] : 1965 Acct:[id number] Age/Sex: 58 / M ADM Date: 03/08/24 Loc: ER Room: Type: [facility] ER Attending Dr: Ordering Provider: Anh Rubin DO Date of Service: 03/08/2409/26/1414 ECG/ECG 12 lead ECG: Stroke Alert Copies to: Test Reason : Blood Pressure : */* mmHG Vent. Rate : 82 BPM Atrial Rate : 82 BPM P-R Int : 170 ms QRS Dur : 104 ms QT Int : 398 ms P-R-T Axes : 29 79 8 degrees QTcB Int : 464 ms Normal sinus rhythm with sinus arrhythmia Incomplete right bundle branch block Possible Inferior infarct , age undetermined Abnormal ECG When compared with ECG of 03-Mar-2024 13:46, [place] interval has decreased Incomplete right bundle branch block is now present Confirmed by ANH RUBIN DO ([id number]) on 03/08/2024 8:00:38 PM Referred By: Electronically Signed By: ANH RBUIN DO Transcribed By: MUS Signed By Anh Rubin DO 03/08 Normal [facility] Erythrocyte distribution wid th [Ratio] by Automated countOrdered By: Anh Rubin on 03-08-2024 Erythrocyte distribution width (RBC) [Ratio] 22.0 % High 12.0-14.8 [facility] Comment on above: Performed By: #### G LULS #### Point of Care testing , Erythrocytes [#/volume] in B lood by Automated countOrdered By: Anh Rubin on 03-08-2024 RBC (Bld) [#/Vol] 4.54 10*6/uL Normal 3.90-5.60 [facility] Comment on above: Performed By: #### G LULS #### Point of Care testing , Glucose [Mass/volume] in Ser um or PlasmaOrdered By: Anh Rubin on 03-08-2024 Glucose [Mass/Vol] 167 mg/dL High 70-100 [facility] Comment on above: Result Comment: [facility] Glucose Reference Range is dependent on time and content of last meal. Glucose of more than 200 mg/dL in a nonstressed, ambulatory subject supports the diagnosis of Diabetes Mellitus. ADA recommended reference range Performed By: #### G LULS #### Point of Care testing , Glucose [Mass/volume] in Uri ne by Test stripOrdered By: Anh Rubin on 03-08-2024 Glucose Test strip (U) [Mass/Vol] >=1000 mg/dL High Normal [facility] Hematocrit [Volume Fraction] of Blood by Automated countOrdered By: Anh Rubin on 03-08-2024 Hematocrit (Bld) [Volume fraction] 32.2 % Low 38.8-50.0 [facility] Comment on above: Performed By: #### G LULS #### Point of Care testing , Hemoglobin Test strip Ql (U) Ordered By: Anh Rubin on 03-08-2024 Hemoglobin Ql (U) Negative Negative [facility] Hemoglobin [Mass/volume] in BloodOrdered By: Anh Rubin on 03-08-2024 Hemoglobin (Bld) [Mass/Vol] 10.3 g/dL Low 13.0-17.0 [facility] Comment on above: Performed By: #### G LULS #### Point of Care testing , INR in Platelet poor plasma by Coagulation assayOrdered By: Anh Rubin on 03-08-2024 INR Coag (PPP) [Relative time] 1.1 {INR} [facility] Comment on above: Result Comment: INR [...] valves: 3 - 4.5 Performed By: #### G LULS #### Point of Care testing , INR Therapeutic Rang e A) Pre- and Peroperative OAT started two weeks before surgery. NOT HIP SURGERY: 1.5 - 2.5 HIP SURGERY: 2 - 3B) Primary and secondary prevention of venous THROMBOSIS: 2 - 3C) Active venous thrombosis, pulmonary embolismand prevention of recurrent venous thrombosis: 2 - 3D) Prevention of arterial thromboembolismincluding patients with mechanical heart valves: 3 - 4.5 Ketones [Presence] in Urine by Test stripOrdered By: Anh Rubin on 03-08-2024 Ketones Ql (U) Negative Negative [facility] Comment on above: Order Comment: Name Collection Type:: Straight Catheter Performed By: #### C MP, PHOS, MG, SCAN CBC #### [facility] [address] [place] [address] [place] Lactate [Moles/volume] in Se rum or PlasmaOrdered By: Anh Rubin on 03-08-2024 Lactate [Moles/Vol] 1.1 mmol/L 0.5-2.2 [facility] Comment on above: Result Comment: PERF ORMED BY: [place] [address] PATHOLOGIST DIRECTOR OF RECRUITMENT AND ADMISSIONS CLIFFORD LOBATO M.D. Performed By: #### C MP, PHOS, MG, SCAN CBC #### [facility] [address] [place] [address] [place] Leukocyte esterase [Presence ] in Urine by Test stripOrdered By: Anh Rubin on 03-08-2024 Leukocyte esterase Test strip Ql (U) Negative Negative [facility] Comment on above: Order Comment: Name Collection Type:: Straight Catheter Performed By: #### C MP, PHOS, MG, SCAN CBC #### [facility] [address] [place] [address] [place] Leukocytes [#/volume] correc jorge for nucleated erythrocytes in Blood by Automated counOrdered By: Anh Rubin on 03-08-2024 WBC corrected for nucl RBC Auto (Bld) [#/Vol] 8.9 10*3/uL 4.1-10.5 [facility] Leukocytes [#/volume] in Blo od by Automated countOrdered By: Anh Rubin on 03-08-2024 WBC (Bld) [#/Vol] 8.9 10*3/uL Normal 4.1-10.5 [facility] Comment on above: Performed By: #### G LULS #### Point of Care testing , Lymphocytes [#/volume] in Bl ood by Automated countOrdered By: Anh Rubin on 03-08-2024 Lymphocytes (Bld) [#/Vol] 1.2 10*3/uL Normal 1.00-4.8 [facility] Comment on above: Performed By: #### G LULS #### Point of Care testing , Lymphocytes/100 leukocytes i n Blood by Automated countOrdered By: Anh Rubin on 03-08-2024 Lymphocytes/100 WBC (Bld) 13.1 % Normal . [facility] Comment on above: Performed By: #### G LULS #### Point of Care testing , MCH [Entitic mass] by Automa jorge countOrdered By: Anh Rubin on 03-08-2024 MCH (RBC) [Entitic mass] 22.7 pg Low 27.5-35.2 [facility] Comment on above: Performed By: #### G LULS #### Point of Care testing , MCHC Auto (RBC) [Mass/Vol]Or dered By: Anh Rubin on 03-08-2024 MCHC (RBC) [Mass/Vol] 32.0 g/dL Low 32.5-35.6 [facility] MCV [Entitic volume] by Auto mated countOrdered By: Anh Rubin on 03-08-2024 MCV (RBC) [Entitic vol] 71.0 fL Low 83.5-101 [facility] Comment on above: Performed By: #### G LULS #### Point of Care testing , MR head/brain wo luis eon 03-08 MR head/brain wo [facility] [address] [address] MRI Report Signed Patient: Solomon Pickard SR MR#: [id number] : 1965 Acct:[id number] Age/Sex: 58 / M ADM Date: 03/08/24 Loc: 3T Room: [address] [place] [address] Type: ADM IN Attending Dr: João Powell MD Copies to: João Powell MD Ordering Provider: João Powell MD Date of Service: 03/08/24 MR/MR head/brain wo con: Suddena altered mental status? MRI the Brain without contrast TECHNIQUE: Multiplanar T1 and T2-weighted imaging of the brain. HISTORY: Altered mental status. Recent BKA surgery COMPARISON: Head CT 03/08/24 VENTRICLES: Unremarkable BRAIN VOLUME: Adequate volume of brain parenchyma identified. BRAIN PARENCHYMAL SIGNAL INTENSITY: Scattered foci of increased T2/FLAIR signal intensity of the brain parenchyma is consistent with chronic small vessel ischemic changes. BLEED: None MASS EFFECT: No mass effect DIFFUSION RESTRICTION: None GRADIENT ECHO PARENCHYMAL SIGNAL LOSS: None MIDBRAIN: The midbrain structures are unremarkable. MAIK: Unremarkable MEDULLA: Unremarkable INTERNAL AUDITORY CANALS: Unremarkable SINUSES: Unremarkable ORBITS: Grossly unremarkable MASTOIDS: Unremarkable ENHANCEMENT: No contrast enhancement given MR/MR head/brain wo con IMPRESSION: No acute intracranial process. Impression dictated by: Sudeep Lind M.D.03/08/2024 8:10 PM Dictation Location: [place] [address] Transcribed By: [facility] 03/08/242009 Dictated By: Sudeep Lind DO 03/08/242006 Signed By: 03/08/242009 Normal [facility] Monocyte distribution width [Entitic volume] in Blood by AutomatedOrdered By: Anh Rubin on 03-08-2024 Monocyte distribution width Auto (Bld) [Entitic vol] 18.68 % 0.00-20.00 [facility] Neutrophils [#/volume] in Bl ood by Automated countOrdered By: Anh Rubin on 03-08-2024 Neutrophils (Bld) [#/Vol] 6.2 10*3/uL Normal 1.8-7.7 [facility] Comment on above: Performed By: #### G LULS #### Point of Care testing , Nitrite Test strip Ql (U)Ord ered By: Anh Rubin on 03-08-2024 Nitrite Ql (U) Negative Negative [facility] No Panel InformationOrdered By: Anh Rubin on 03-08-2024 Arterial Blood Base Excess -1.4 mmol/L -3.0-3.0 [facility] Arterial Blood Oxygen Content 6.4 mmol/L Low 6.6-9.7 [facility] Arterial Blood Oxygen Saturation 97.1 % 95.0-100.0 [facility] Arterial Blood Partial Pressure CO2 33.3 mm[Hg] Low 35.0-45.0 [facility] Arterial Blood Partial Pressure O2 92.6 mm[Hg] 80.0-100.0 [facility] Arterial Blood pH 7.44 7.35-7.45 [facility] Blood Gas Critical Value See comment [facility] Comment on above: Critical Value gibbons d on: 03/08/2024 at 15:16 Blood Gas Sample Site Left radial [facility] FiO2 21 % [facility] 7.44 7.35-7.45 [facility] 33.3 mm[Hg] Low 35.0-45.0 [facility] 92.6 mm[Hg] 80.0-100.0 [facility] 22.2 mmol/L Low 23.0-29.0 [facility] -1.4 mmol/L -3.0-3.0 [facility] 97.1 % 95.0-100.0 [facility] 6.4 mmol/L Low 6.6-9.7 [facility] 23.2 mmol/L 23.0-27.0 [facility] 21 % [facility] Left radial [facility] See comment [facility] 40.131 mL/Min [facility] 44.90 [facility] Nucleated erythrocytes [Pres ence] in Blood by Automated countOrdered By: Anh Rubin on 03-08-2024 Nucleated RBC Auto Ql (Bld) 0.2 /100{WBC} 0-0.5 [facility] Opiates [Presence] in Urine by Screen methodOrdered By: Anh Rubin on 03-08-2024 Opiates Screen Ql (U) Negative Negative [facility] Partial Thromboplastin Timeo n 03-08-2024 aPTT Coag (Bld) [Time] 29.6 s Normal 25.1-36.5 Th e [facility] Comment on above: Result Comment: A he matocrit value greater than 55% may lead to inaccurate results in coagulation testing. Patients having hematocrit values >55% require a special collection tube for coagulation studies. Please contact the laboratory at [phone] for redraw instructions. PERFORMED BY: [facility] [place] [place] [address] PATHOLOGIST DIRECTOR OF RECRUITMENT AND ADMISSIONS CLIFFORD LOBATO M.D. Performed By: #### G LULS #### Point of Care testing , Phencyclidine Screen Ql (U)O rdered By: Anh Rubin on 03-08-2024 Phencyclidine Ql (U) Negative Negative [facility] Platelet mean volume [Entiti c volume] in Blood by Automated countOrdered By: Anh Rubin on 03-08-2024 Platelet mean volume (Bld) [Entitic vol] 8.2 fL Normal 6.6-10.1 [facility] Comment on above: Performed By: #### G LULS #### Point of Care testing , Platelets [#/volume] in Bloo d by Automated countOrdered By: Anh Rubin on 03-08-2024 Platelets (Bld) [#/Vol] 286 10*3/uL Normal 150-450 [facility] Comment on above: Performed By: #### G LULS #### Point of Care testing , Potassium [Moles/volume] in Serum or PlasmaOrdered By: Anh Rubin on 03-08-2024 Potassium [Moles/Vol] 4.1 mmol/L Normal 3.5-5.1 [facility] Comment on above: Performed By: #### G LULS #### Point of Care testing , Protein Test strip (U) [Mass /Vol]Ordered By: Anh Rubin on 03-08-2024 Protein (U) [Mass/Vol] Negative Negative [facility] Protein [Mass/volume] in Ser um or PlasmaOrdered By: Anh Rubin on 03-08-2024 Protein [Mass/Vol] 7.7 g/dL Normal 6.4-8.9 [facility] Comment on above: Performed By: #### G LULS #### Point of Care testing , Prothrombin time (PT)Ordered By: Anh Rubin on 03-08-2024 PT Coag (PPP) [Time] 13.0 s High 9.0-12.9 [facility] Comment on above: Result Comment: A he matocrit value greater than 55% may lead to inaccurate results in coagulation testing. Patients having hematocrit values >55% require a special collection tube for coagulation studies. Please contact the laboratory at [phone] for redraw instructions. Performed By: #### G LULS #### Point of Care testing , A hematocrit value g reater than 55% may lead to inaccurate results in coagulation testing. Patients having hematocrit values >55% require a special collection tube for coagulation studies. Please contact the laboratory at [phone] for redraw instructions. Respiratory (Upper) Panel, P CRon 03-08-2024 Respiratory (Upper) Panel, PCR Adenovirus Not detected Bordetella parapertussis Not detected Chlamydia pneumoniae Not detected Coronavirus 229E Not detected Coronavirus HKU1 Not detected Coronavirus NL63 Not detected Coronavirus OC43 Not detected Influenza A Not detected Influenza B Not detected Human Metapneumovirus Not detected Mycoplasma pneumoniae Not detected Parainfluenza Virus 1 Not detected Parainfluenza Virus 2 Not detected Parainfluenza Virus 3 Not detected Parainfluenza Virus 4 Not detected Bordetella pertussis-ptxP Not detected Human Rhino/Enterovirus Not detected Resp. Syncytial Virus Not detected COVID-19 Detected/Not Detected Not detected Blank Space ---- FLUA TEST INCLUDES Influenza A tests for the following clinically FLUA TEST INCLUDES significant subtypes: FLUA TEST INCLUDES - Influenza A FLUA TEST INCLUDES - Influenza A H1 FLUA TEST INCLUDES - Influenza A H1 2009 FLUA TEST INCLUDES - Influenza A H3 Blank Space ---- PERFORMED BY: [facility] [address] [place] [address] PATHOLOGIST DIRECTOR OF RECRUITMENT AND ADMISSIONS CLIFFORD LOBATO M.D. Normal [facility] Comment on above: Performed By: #### C MP, PHOS, MG, SCAN CBC #### [facility] [address] Respiratory pathogens DNA an d RNA panel - Nasopharynx by NELLY with non-probe detectionOrdered By: Anh Rubin on 03-08-2024 Respiratory pathogens DNA and RNA panel NELLY+non-probe (Nph) [facility] Serum globulin measurement b y calculation (mass/volume)Ordered By: Anh Rubin on 03-08-2024 Globulin (S) [Mass/Vol] 3.9 g/dL Normal [facility] Comment on above: Performed By: #### G LULS #### Point of Care testing , Serum or plasma albumin/glob ulin mass ratioOrdered By: Anh Rubin on 03-08-2024 Albumin/Globulin [Mass ratio] 1.0 {ratio} [facility] Comment on above: Performed By: #### G LULS #### Point of Care testing , Serum or plasma anion gap de terminationOrdered By: Anh Rubin on 03-08-2024 Anion gap [Moles/Vol] 14.1 mmol/L Normal 6.0-15.0 [facility] Comment on above: Performed By: #### G LULS #### Point of Care testing , Sodium [Moles/volume] in Ser um or PlasmaOrdered By: Anh Rubin on 03-08-2024 Sodium [Moles/Vol] 141 mmol/L Normal 136-145 [facility] Comment on above: Performed By: #### G LULS #### Point of Care testing , Specific gravity Test strip (U) [Rel density]Ordered By: Anh Rubin on 03-08-2024 Specific gravity (U) [Rel density] 1.013 1.001-1.03 0 [facility] Troponin I High Sensitivityo n 03-08-2024 Troponin I High Sensitivity 6.1 pg/mL Normal 0.0-20.0 [facility] Comment on above: Result Comment: PERF ORMED BY: [address] [place] [address] PATHOLOGIST DIRECTOR OF RECRUITMENT AND ADMISSIONS CLIFFORD LOBATO M.D. Performed By: #### G LULS #### Point of Care testing , Troponin I.cardiac [Mass/vol ume] in Serum or Plasma by Detection limit <= 0.01 ng/Ordered By: Anh Rubin on 03-08-2024 Troponin I.cardiac DL <= 0.01 ng/mL [Mass/Vol] 6.1 pg/mL 0.0-20.0 [facility] Urea nitrogen [Mass/volume] in Serum or PlasmaOrdered By: Ahn Rubin on 03-08-2024 Urea nitrogen [Mass/Vol] 19 mg/dL Normal 7-25 [facility] Comment on above: Performed By: #### G LULS #### Point of Care testing , Urinalysison 03-08-2024 Bilirubin,Urine Negative Normal Negative [facility] Comment on above: Order Comment: Name Collection Type:: Straight Catheter Performed By: #### C MP, PHOS, MG, SCAN CBC #### [facility] [address] Glucose Ql (U) >=1000 High Normal [facility] Comment on above: Order Comment: Name Collection Type:: Straight Catheter Performed By: #### C MP, PHOS, MG, SCAN CBC #### [facility] [address] [place] [address] [place] Nitrite,Urine Negative Normal Negative [facility] Comment on above: Order Comment: Name Collection Type:: Straight Catheter Performed By: #### C MP, PHOS, MG, SCAN CBC #### [facility] [address] Occult Blood,Urine Negative Normal Negative [facility] Comment on above: Order Comment: Name Collection Type:: Straight Catheter Result Comment: PERF ORMED BY: [address] [place] [address] PATHOLOGIST DIRECTOR OF RECRUITMENT AND ADMISSIONS CLIFFORD LOBATO M.D. Performed By: #### C MP, PHOS, MG, SCAN CBC #### [address] Protein,Urine Negative Normal Negative [facility] Comment on above: Order Comment: Name Collection Type:: Straight Catheter Performed By: #### C MP, PHOS, MG, SCAN CBC #### [address] Specificy [place],Urine 1.013 Normal 1.001-1.03 0 [facility] Comment on above: Order Comment: Name Collection Type:: Straight Catheter Performed By: #### C MP, PHOS, MG, SCAN CBC #### [address] Urobilinogen,Urine Normal Normal Normal [facility] Comment on above: Order Comment: Name Collection Type:: Straight Catheter Performed By: #### C MP, PHOS, MG, SCAN CBC #### [address] Urine appearanceOrdered By: Anh Ruibn on 03-08-2024 Appearance (U) Clear Clear [facility] Comment on above: Order Comment: Name Collection Type:: Straight Catheter Performed By: #### C MP, PHOS, MG, SCAN CBC #### [address] Urobilinogen Test strip (U) [Mass/Vol]Ordered By: Anh Rubin on 03-08-2024 Urobilinogen (U) [Mass/Vol] Normal mg/dL Normal [facility] XR chest 1V portableon 03-08 XR chest 1V portable [facility] [place] [address] XRay Report Signed Patient: Solomon Pickard MR#: [id number] : 1965 Acct:[id number] Age/Sex: 58 / M ADM Date: 03/08/24 Loc: Room: [address] [place] [address] Type: ADM IN Attending Dr: João Powell MD Copies to: DO João Rao MD Ordering Provider: Anh Rubin DO Date of Service: 03/08/24 XR/XR chest 1V portable: Neuro Symptoms/Deficit Plain film chest Single view HISTORY: Altered mental status COMPARISON: 03/03/24 FINDINGS: SUPPORT DEVICES: None POSTSURGICAL CHANGES: None HEART: Within normal limits PULMONARY CHAPIS: Within normal limits MEDIASTINUM: Unremarkable LUNGS AND PLEURA: No acute lung process, pleural effusion or pneumothorax identified. BONY STRUCTURES: Intact ADDITIONAL FINDINGS None XR/XR chest 1V portable IMPRESSION: No acute process. Impression dictated by: Sudeep Lind M.D.03/08/2024 6:08 PM Dictation Location: [place] [address] Transcribed By: BOB 03/08/241807 Dictated By: Sudeep Lind DO 03/08/241807 Signed By: 03/08/241807 Normal [facility] pH of Urine by Test stripOrd ered By: Anh Rubin on 03-08-2024 pH (U) 5.0 [pH] 5.0-9.0 [facility] Comment on above: Order Comment: Name Collection Type:: Straight Catheter Performed By: #### C MP, PHOS, MG, SCAN CBC #### [address] Alanine aminotransferase [En zymatic activity/volume] in Serum or PlasmaOrdered By: João Powell on 03-06-2024 ALT [Catalytic activity/Vol] 11 U/L 7-52 [facility] Comment on above: Performed By: #### G LULS #### Point of Care testing , Albumin [Mass/volume] in Ser um or Plasma by Bromocresol green (BCG) dye binding methoOrdered By: João Powell on 03-06-2024 Albumin BCG dye [Mass/Vol] 3.3 g/dL Low 3.5-5.7 [facility] Alkaline phosphatase [Enzyma tic activity/volume] in Serum or PlasmaOrdered By: João Powell on 03-06-2024 ALP [Catalytic activity/Vol] 101 U/L 34-104 [facility] Comment on above: Performed By: #### G LULS #### Point of Care testing , Anisocytosis [Presence] in B lood by Light microscopyOrdered By: João Powell on 03-06-2024 Anisocytosis Ql (Bld) Marked [facility] Comment on above: Performed By: #### G LULS #### Point of Care testing , Aspartate aminotransferase [ Enzymatic activity/volume] in Serum or PlasmaOrdered By: João Powell on 03-06-2024 AST [Catalytic activity/Vol] 14 U/L 13-39 [facility] Comment on above: Performed By: #### G LULS #### Point of Care testing , Basophils Auto (Bld) [#/Vol] Ordered By: João Powell on 03-06-2024 Basophils (Bld) [#/Vol] N/A [facility] Basophils/100 WBC Auto (Bld) Ordered By: João Powell on 03-06-2024 Basophils/100 WBC (Bld) N/A [facility] Basophils/100 leukocytes in Blood by Manual countOrdered By: João Powell on 03-06-2024 Basophils/100 WBC (Bld) 1 % 0-2 [facility] Comment on above: Performed By: #### G LULS #### Point of Care testing , Bilirubin.total [Mass/volume ] in Serum or PlasmaOrdered By: João Powell on 03-06-2024 Bilirubin [Mass/Vol] 0.4 mg/dL 0.3-1.0 [facility] Comment on above: Performed By: #### G LULS #### Point of Care testing , Calcium [Mass/volume] in Ser um or PlasmaOrdered By: João Powell on 03-06-2024 Calcium [Mass/Vol] 8.7 mg/dL 8.6-10.3 [facility] Comment on above: Performed By: #### G LULS #### Point of Care testing , Capillary blood glucose ashley urement by glucometer (mass/volume)Ordered By: João Powell on 03-06-2024 Glucose [Mass/Vol] 169 mg/dL [facility] Comment on above: Random Glucose Refer ence Range is dependent on time and content of last meal. Glucose of more than 200 mg/dL in a nonstressed, ambulatory subject supports the diagnosis of Diabetes Mellitus. Result Comment: Vandiver Glucose Reference Range is dependent on time and content of last meal. Glucose of more than 200 mg/dL in a nonstressed, ambulatory subject supports the diagnosis of Diabetes Mellitus. PERFORMED BY: [facility] [address] [place] [address] PATHOLOGIST DIRECTOR OF RECRUITMENT AND ADMISSIONS CLIFFORD LOBATO M.D. Performed By: #### C MP, PHOS, MG, SCAN CBC #### [facility] [address] Carbon dioxide, total [Moles /volume] in Serum or PlasmaOrdered By: João Powell on 03-06-2024 CO2 [Moles/Vol] 24.3 mmol/L 21.0-31.0 [facility] Comment on above: Performed By: #### G LULS #### Point of Care testing , Chloride [Moles/volume] in S ilia or PlasmaOrdered By: João Powell on 03-06-2024 Chloride [Moles/Vol] 107 mmol/L 98-107 [facility] Comment on above: Performed By: #### G LULS #### Point of Care testing , Comprehensive Metabolic Pane guy 03-06-2024 Albumin [Mass/Vol] 3.3 g/dL Low 3.5-5.7 [facility] Comment on above: Performed By: #### G LULS #### Point of Care testing , Creatinine Clr Calc Pharmacy 62.24 Normal [facility] Comment on above: Performed By: #### G LULS #### Point of Care testing , GFR/1.73 sq M.predicted MDRD (S/P/Bld) [Vol rate/Area] 57.276 mL/min/{1.73_m2} Normal [facility] Comment on above: Performed By: #### G LULS #### Point of Care testing , Creatinine [Mass/volume] in Serum or PlasmaOrdered By: João Powell on 03-06-2024 Creatinine [Mass/Vol] 1.42 mg/dL High 0.70-1.30 [facility] Comment on above: Performed By: #### G LULS #### Point of Care testing , Diff and CBCon 03-06-2024 Hypochromasia Slight Normal [facility] Comment on above: Performed By: #### G LULS #### Point of Care testing , Large Platelets Slight Normal [facility] Comment on above: Result Comment: PERF ORMED BY: [facility] [address] [place] [address] PATHOLOGIST DIRECTOR OF RECRUITMENT AND ADMISSIONS CLIFFORD LOBATO M.D. Performed By: #### G LULS #### Point of Care testing , Mean Corpuscular HGB Conc 32.0 g/dL Low 32.5-35.6 [facility] Comment on above: Performed By: #### G LULS #### Point of Care testing , Microcytosis Slight Normal [facility] Comment on above: Performed By: #### G LULS #### Point of Care testing , Platelet Estimate Normal Normal Normal [facility] Comment on above: Performed By: #### G LULS #### Point of Care testing , Polychromasia Slight Normal [facility] Comment on above: Performed By: #### G LULS #### Point of Care testing , Tear Drop Cells Slight Normal [facility] Comment on above: Performed By: #### G LULS #### Point of Care testing , Eosinophils Auto (Bld) [#/Vo l]Ordered By: João Powell on 03-06-2024 Eosinophils (Bld) [#/Vol] N/A [facility] Eosinophils/100 WBC Auto (Bl d)Ordered By: João Powell on 03-06-2024 Eosinophils/100 WBC (Bld) N/A [facility] Eosinophils/100 leukocytes i n Blood by Manual countOrdered By: João Powell on 03-06-2024 Eosinophils/100 WBC (Bld) 1 % 1-3 [facility] Comment on above: Performed By: #### G LULS #### Point of Care testing , Erythrocyte distribution wid th [Ratio] by Automated countOrdered By: João Powell on 03-06-2024 Erythrocyte distribution width (RBC) [Ratio] 21.1 % High 12.0-14.8 [facility] Comment on above: Performed By: #### G LULS #### Point of Care testing , Erythrocytes [#/volume] in B lood by Automated countOrdered By: João Powell on 03-06-2024 RBC (Bld) [#/Vol] 3.68 10*6/uL Low 3.90-5.60 [facility] Comment on above: Performed By: #### G LULS #### Point of Care testing , Glucose Poct Glucometerson 1 Glucose [Mass/Vol] 128 mg/dL Normal [facility] Comment on above: Result Comment: [facility]iver Glucose Reference Range is dependent on time and content of last meal. Glucose of more than 200 mg/dL in a nonstressed, ambulatory subject supports the diagnosis of Diabetes Mellitus. PERFORMED BY: [place] [address] PATHOLOGIST DIRECTOR OF RECRUITMENT AND ADMISSIONS CLIFFORD LOBATO M.D. Performed By: #### C MP, PHOS, MG, SCAN CBC #### [address] Glucose [Mass/volume] in Ser um or PlasmaOrdered By: João Powell on 03-06-2024 Glucose [Mass/Vol] 99 mg/dL 70-100 [facility] Comment on above: ADA recommended refe rence rangeRandom Glucose Reference Range is dependent on time and content of last meal. Glucose of more than 200 mg/dL in a nonstressed, ambulatory subject supports the diagnosis of Diabetes Mellitus. Result Comment: Vandiver om Glucose Reference Range is dependent on time and content of last meal. Glucose of more than 200 mg/dL in a nonstressed, ambulatory subject supports the diagnosis of Diabetes Mellitus. ADA recommended reference range Performed By: #### G LULS #### Point of Care testing , Hematocrit [Volume Fraction] of Blood by Automated countOrdered By: João Powell on 03-06-2024 Hematocrit (Bld) [Volume fraction] 25.8 % Low 38.8-50.0 [facility] Comment on above: Performed By: #### G LULS #### Point of Care testing , Hemoglobin [Mass/volume] in BloodOrdered By: João Powell on 03-06-2024 Hemoglobin (Bld) [Mass/Vol] 8.3 g/dL Low 13.0-17.0 [facility] Comment on above: Performed By: #### G LULS #### Point of Care testing , Hypochromia LM Ql (Bld)Order ed By: João Powell on 03-06-2024 Hypochromia Ql (Bld) Slight [facility] Leukocytes [#/volume] correc jorge for nucleated erythrocytes in Blood by Automated counOrdered By: João Powell on 03-06-2024 WBC corrected for nucl RBC Auto (Bld) [#/Vol] 6.8 10*3/uL 4.1-10.5 [facility] Leukocytes [#/volume] in Blo od by Automated countOrdered By: João Powell on 03-06-2024 WBC (Bld) [#/Vol] 6.8 10*3/uL 4.1-10.5 [facility] Comment on above: Performed By: #### G LULS #### Point of Care testing , Lymphocytes Auto (Bld) [#/Vo l]Ordered By: João Powell on 03-06-2024 Lymphocytes (Bld) [#/Vol] N/A [facility] Lymphocytes/100 WBC Auto (Bl d)Ordered By: João Powell on 03-06-2024 Lymphocytes/100 WBC (Bld) N/A [facility] Lymphocytes/100 leukocytes i n Blood by Manual countOrdered By: João Powell on 03-06-2024 Lymphocytes/100 WBC (Bld) 18 % 18-42 [facility] Comment on above: Performed By: #### G LULS #### Point of Care testing , MCH [Entitic mass] by Automa jorge countOrdered By: João Powell on 03-06-2024 MCH (RBC) [Entitic mass] 22.4 pg Low 27.5-35.2 [facility] Comment on above: Performed By: #### G LULS #### Point of Care testing , MCHC Auto (RBC) [Mass/Vol]Or dered By: João Powell on 03-06-2024 MCHC (RBC) [Mass/Vol] 32.0 g/dL Low 32.5-35.6 [facility] MCV [Entitic volume] by Auto mated countOrdered By: João Powell on 03-06-2024 MCV (RBC) [Entitic vol] 70.2 fL Low 83.5-101 [facility] Comment on above: Performed By: #### G LULS #### Point of Care testing , Magnesium [Mass/volume] in S ilia or PlasmaOrdered By: João Powell on 03-06-2024 Magnesium [Mass/Vol] 1.6 mg/dL Low 1.9-2.7 [facility] Comment on above: Result Comment: PERF ORMED BY: [facility] [address] [place] [address] PATHOLOGIST DIRECTOR OF RECRUITMENT AND ADMISSIONS CLIFFORD LOBATO M.D. Performed By: #### G LULS #### Point of Care testing , Manual blood segmented neutr ophils/100 leukocytesOrdered By: João Powell on 03-06-2024 Segmented neutrophils/100 WBC (Bld) 72 % High 50-70 [facility] Comment on above: Performed By: #### G LULS #### Point of Care testing , Microcytes LM Ql (Bld)Ordere d By: João Powell on 03-06-2024 Microcytes Ql (Bld) Slight [facility] Monocytes Auto (Bld) [#/Vol] Ordered By: João Powell on 03-06-2024 Monocytes (Bld) [#/Vol] N/A [facility] Monocytes/100 WBC Auto (Bld) Ordered By: João Powell on 03-06-2024 Monocytes/100 WBC (Bld) N/A [facility] Monocytes/100 leukocytes in Blood by Manual countOrdered By: João Powell on 03-06-2024 Monocytes/100 WBC (Bld) 8 % 2-11 [facility] Comment on above: Performed By: #### G LULS #### Point of Care testing , Neutrophils Auto (Bld) [#/Vo l]Ordered By: João Powell on 03-06-2024 Neutrophils (Bld) [#/Vol] N/A [facility] Neutrophils/100 WBC Auto (Bl d)Ordered By: João Powell on 03-06-2024 Neutrophils/100 WBC (Bld) N/A [facility] No Panel InformationOrdered By: João Powell on 03-06-2024 Estimated GFR (CKD-EPI) 57.276 mL/Min [facility] Creatinine Clearance (Chem 62.24 [facility] 57.276 mL/Min [facility] 62.24 [facility] Nucleated erythrocytes [Pres ence] in Blood by Automated countOrdered By: João Powell on 03-06-2024 Nucleated RBC Auto Ql (Bld) N/A [facility] Phosphate [Mass/volume] in S ilia or PlasmaOrdered By: João Powell on 03-06-2024 Phosphate [Mass/Vol] 3.2 mg/dL 2.5-4.5 [facility] Comment on above: Performed By: #### G LULS #### Point of Care testing , Platelet adequacy [Presence] in Blood by Light microscopyOrdered By: João Powell on 03-06-2024 Platelets LM Ql (Bld) Normal Normal [facility] Platelet mean volume [Entiti c volume] in Blood by Automated countOrdered By: João Powell on 03-06-2024 Platelet mean volume (Bld) [Entitic vol] 8.1 fL 6.6-10.1 [facility] Comment on above: Performed By: #### G LULS #### Point of Care testing , Platelet morphology finding [Identifier] in BloodOrdered By: João Powell on 03-06-2024 Platelet morphology finding Nom (Bld) N/A [facility] Platelets Large [Presence] i n Blood by Light microscopyOrdered By: João Powell on 03-06-2024 Platelets Large LM Ql (Bld) Slight [facility] Platelets [#/volume] in Bloo d by Automated countOrdered By: João Powell on 03-06-2024 Platelets (Bld) [#/Vol] 325 10*3/uL 150-450 [facility] Comment on above: Performed By: #### G LULS #### Point of Care testing , Polychromasia [Presence] in Blood by Light microscopyOrdered By: João Powell on 03-06-2024 Polychromasia LM Ql (Bld) [facility] Potassium [Moles/volume] in Serum or PlasmaOrdered By: João Powell on 03-06-2024 Potassium [Moles/Vol] 4.2 mmol/L 3.5-5.1 [facility] Comment on above: Performed By: #### G LULS #### Point of Care testing , Protein [Mass/volume] in Ser um or PlasmaOrdered By: João Powell on 03-06-2024 Protein [Mass/Vol] 6.1 g/dL Low 6.4-8.9 [facility] Comment on above: Performed By: #### G LULS #### Point of Care testing , RBC morphologyOrdered By: Derek Powell on 03-06-2024 RBC morphology finding Nom (Bld) N/A [facility] Serum globulin measurement b y calculation (mass/volume)Ordered By: João Powell on 03-06-2024 Globulin (S) [Mass/Vol] 2.8 g/dL [facility] Comment on above: Performed By: #### G LULS #### Point of Care testing , Serum or plasma albumin/glob ulin mass ratioOrdered By: João Powell on 03-06-2024 Albumin/Globulin [Mass ratio] 1.2 {ratio} [facility] Comment on above: Performed By: #### G LULS #### Point of Care testing , Serum or plasma anion gap de terminationOrdered By: João Powell on 03-06-2024 Anion gap [Moles/Vol] 9.9 mmol/L 6.0-15.0 [facility] Comment on above: Performed By: #### G LULS #### Point of Care testing , Sodium [Moles/volume] in Ser um or PlasmaOrdered By: João Powell on 03-06-2024 Sodium [Moles/Vol] 137 mmol/L 136-145 [facility] Comment on above: Performed By: #### G LULS #### Point of Care testing , Teardrop cell detectionOrder ed By: João Powell on 03-06-2024 Dacrocytes LM Ql (Bld) [facility] Urea nitrogen [Mass/volume] in Serum or PlasmaOrdered By: João Powell on 03-06-2024 Urea nitrogen [Mass/Vol] 17 mg/dL 7-25 [facility] Comment on above: Performed By: #### G LULS #### Point of Care testing , Complete Blood Count Auto Di ffon 03-05-2024 Basophils (Bld) [#/Vol] 0.1 10*3/uL Normal 0.0-0.2 [facility] Comment on above: Result Comment: PERF ORMED BY: [facility] [place] [address] PATHOLOGIST DIRECTOR OF RECRUITMENT AND ADMISSIONS CLIFFORD LOBATO M.D. Performed By: #### G LULS #### Point of Care testing , Basophils/100 WBC (Bld) 1.1 % Normal . [facility] Comment on above: Performed By: #### G LULS #### Point of Care testing , Eosinophils (Bld) [#/Vol] 0.2 10*3/uL Normal 0.0-0.45 [facility] Comment on above: Performed By: #### G LULS #### Point of Care testing , Eosinophils/100 WBC (Bld) 2.8 % Normal . [facility] Comment on above: Performed By: #### G LULS #### Point of Care testing , Erythrocyte distribution width (RBC) [Ratio] 21.4 % High 12.0-14.8 [facility] Comment on above: Performed By: #### G LULS #### Point of Care testing , Hematocrit (Bld) [Volume fraction] 26.8 % Low 38.8-50.0 [facility] Comment on above: Performed By: #### G LULS #### Point of Care testing , Hemoglobin (Bld) [Mass/Vol] 8.6 g/dL Low 13.0-17.0 [facility] Comment on above: Performed By: #### G LULS #### Point of Care testing , Lymphocytes (Bld) [#/Vol] 1.3 10*3/uL Normal 1.00-4.8 [facility] Comment on above: Performed By: #### G LULS #### Point of Care testing , Lymphocytes/100 WBC (Bld) 16.1 % Normal . [facility] Comment on above: Performed By: #### G LULS #### Point of Care testing , MCH (RBC) [Entitic mass] 22.4 pg Low 27.5-35.2 [facility] Comment on above: Performed By: #### G LULS #### Point of Care testing , MCV (RBC) [Entitic vol] 70.1 fL Low 83.5-101 [facility] Comment on above: Performed By: #### G LULS #### Point of Care testing , Mean Corpuscular HGB Conc 31.9 g/dL Low 32.5-35.6 [facility] Comment on above: Performed By: #### G LULS #### Point of Care testing , Monocytes (Bld) [#/Vol] 1.0 10*3/uL High 0.0-0.8 [facility] Comment on above: Performed By: #### G LULS #### Point of Care testing , Monocytes/100 WBC (Bld) 12.4 % Normal . [facility] Comment on above: Performed By: #### G LULS #### Point of Care testing , Neutrophils (Bld) [#/Vol] 5.6 10*3/uL Normal 1.8-7.7 [facility] Comment on above: Performed By: #### G LULS #### Point of Care testing , Neutrophils/100 WBC (Bld) 67.6 % Normal . [facility] Comment on above: Performed By: #### G LULS #### Point of Care testing , NRBC% 0.0 /100{WBC} Normal 0-0.5 [facility] Comment on above: Performed By: #### G LULS #### Point of Care testing , Platelet mean volume (Bld) [Entitic vol] 7.9 fL Normal 6.6-10.1 [facility] Comment on above: Performed By: #### G LULS #### Point of Care testing , Platelets (Bld) [#/Vol] 361 10*3/uL Normal 150-450 [facility] Comment on above: Performed By: #### G LULS #### Point of Care testing , RBC (Bld) [#/Vol] 3.83 10*6/uL Low 3.90-5.60 [facility] Comment on above: Performed By: #### G LULS #### Point of Care testing , WBC (Bld) [#/Vol] 8.3 10*3/uL Normal 4.1-10.5 [facility] Comment on above: Performed By: #### G LULS #### Point of Care testing , Comprehensive Metabolic Pane guy 03-05-2024 Albumin [Mass/Vol] 3.3 g/dL Low 3.5-5.7 [facility] Comment on above: Performed By: #### G LULS #### Point of Care testing , Albumin/Globulin [Mass ratio] 1.2 {ratio} Normal [facility] Comment on above: Performed By: #### G LULS #### Point of Care testing , ALP [Catalytic activity/Vol] 98 U/L Normal 34-104 [facility] Comment on above: Performed By: #### G LULS #### Point of Care testing , ALT [Catalytic activity/Vol] 10 U/L Normal 7-52 [facility] Comment on above: Performed By: #### G LULS #### Point of Care testing , Anion gap [Moles/Vol] 9.9 mmol/L Normal 6.0-15.0 [facility] Comment on above: Performed By: #### G LULS #### Point of Care testing , AST [Catalytic activity/Vol] 14 U/L Normal 13-39 [facility] Comment on above: Performed By: #### G LULS #### Point of Care testing , Bilirubin [Mass/Vol] 0.3 mg/dL Normal 0.3-1.0 [facility] Comment on above: Performed By: #### G LULS #### Point of Care testing , Calcium [Mass/Vol] 8.6 mg/dL Normal 8.6-10.3 [facility] Comment on above: Performed By: #### G LULS #### Point of Care testing , Chloride [Moles/Vol] 107 mmol/L Normal 98-107 [facility] Comment on above: Performed By: #### G LULS #### Point of Care testing , CO2 [Moles/Vol] 25.2 mmol/L Normal 21.0-31.0 [facility] Comment on above: Performed By: #### G LULS #### Point of Care testing , Creatinine [Mass/Vol] 1.49 mg/dL High 0.70-1.30 [facility] Comment on above: Performed By: #### G LULS #### Point of Care testing , Creatinine Clr Calc Pharmacy 59.31 Normal [facility] Comment on above: Performed By: #### G LULS #### Point of Care testing , GFR/1.73 sq M.predicted MDRD (S/P/Bld) [Vol rate/Area] 54.062 mL/min/{1.73_m2} Normal [facility] Comment on above: Performed By: #### G LULS #### Point of Care testing , Globulin (S) [Mass/Vol] 2.8 g/dL Normal [facility] Comment on above: Performed By: #### G LULS #### Point of Care testing , Glucose [Mass/Vol] 105 mg/dL High 70-100 [facility] Comment on above: Result Comment: Vandiver om Glucose Reference Range is dependent on time and content of last meal. Glucose of more than 200 mg/dL in a nonstressed, ambulatory subject supports the diagnosis of Diabetes Mellitus. ADA recommended reference range Performed By: #### G LULS #### Point of Care testing , Potassium [Moles/Vol] 4.1 mmol/L Normal 3.5-5.1 [facility] Comment on above: Performed By: #### G LULS #### Point of Care testing , Protein [Mass/Vol] 6.1 g/dL Low 6.4-8.9 [facility] Comment on above: Performed By: #### G LULS #### Point of Care testing , Sodium [Moles/Vol] 138 mmol/L Normal 136-145 [facility] Comment on above: Performed By: #### G LULS #### Point of Care testing , Urea nitrogen [Mass/Vol] 24 mg/dL Normal 7-25 [facility] Comment on above: Performed By: #### G LULS #### Point of Care testing , Glucose Poct Glucometerson 1 Glucose [Mass/Vol] 151 mg/dL Normal [facility] Comment on above: Result Comment: [facility]iver om Glucose Reference Range is dependent on time and content of last meal. Glucose of more than 200 mg/dL in a nonstressed, ambulatory subject supports the diagnosis of Diabetes Mellitus. PERFORMED BY: [address] [place] [address] PATHOLOGIST DIRECTOR OF RECRUITMENT AND ADMISSIONS CLIFFORD LOBATO M.D. Performed By: #### G LULS #### Point of Care testing , Glucose [Mass/Vol] 106 mg/dL Normal [facility] Comment on above: Result Comment: [facility]iver Glucose Reference Range is dependent on time and content of last meal. Glucose of more than 200 mg/dL in a nonstressed, ambulatory subject supports the diagnosis of Diabetes Mellitus. PERFORMED BY: [address] [address] PATHOLOGIST DIRECTOR OF RECRUITMENT AND ADMISSIONS CLIFFORD LOBATO M.D. Performed By: #### C MP, PHOS, MG, SCAN CBC #### [address] Glucose [Mass/Vol] 132 mg/dL Normal [facility] Comment on above: Result Comment: Vandiver om Glucose Reference Range is dependent on time and content of last meal. Glucose of more than 200 mg/dL in a nonstressed, ambulatory subject supports the diagnosis of Diabetes Mellitus. PERFORMED BY: [place] [address] PATHOLOGIST DIRECTOR OF RECRUITMENT AND ADMISSIONS CLIFFORD LOBATO M.D. Performed By: #### C MP, PHOS, MG, SCAN CBC #### [address] Commemt1 Glu2: Cleaned Meter Normal [facility] Comment on above: Result Comment: PERF ORMED BY: [place] [address] PATHOLOGIST DIRECTOR OF RECRUITMENT AND ADMISSIONS CLIFFORD LOBATO M.D. Performed By: #### C MP, PHOS, MG, SCAN CBC #### [address] Glucose [Mass/Vol] 151 mg/dL Normal [facility] Comment on above: Result Comment: Vandiver om Glucose Reference Range is dependent on time and content of last meal. Glucose of more than 200 mg/dL in a nonstressed, ambulatory subject supports the diagnosis of Diabetes Mellitus. Performed By: #### C MP, PHOS, MG, SCAN CBC #### [address] Magnesiumon 03-05-2024 Magnesium [Mass/Vol] 1.4 mg/dL Low 1.9-2.7 [facility] Comment on above: Result Comment: PERF ORMED BY: [place] [address] PATHOLOGIST DIRECTOR OF RECRUITMENT AND ADMISSIONS CLIFFORD LOBATO M.D. Performed By: #### G LULS #### Point of Care testing , No Panel InformationOrdered By: João Powell on 03-05-2024 Bedside Glucose Comment Glu2: cleaned meter [facility] Glu2: cleaned meter [facility] Phosphoruson 03-05-2024 Phosphate [Mass/Vol] 3.1 mg/dL Normal 2.5-4.5 [facility] Comment on above: Performed By: #### G LULS #### Point of Care testing , US carotid doppler BIon US carotid doppler BI [facility] [place] [address] Ultrasound Report Signed Patient: Solomon Pickard SR MR#: [id number] : 1965 Acct:[id number] Age/Sex: 58 / M ADM Date: 03/04/24 Loc: Room: [address] [place] [address] Type: ADM IN Attending Dr: João Powell MD Ordering Provider: Luther Dozier DO Date of Service: 03/04/24 US/US carotid doppler BI: syncope Copies to: DO João Freeman MD CAROTID DUPLEX INDICATION: Mental status change PROCEDURE: Color-flow duplex scanning is used to interrogate the extracranial carotid arterial system, as well as both vertebral arteries. The proximal right internal carotid artery shows a highest peak systolic velocity of 112 cm/s with an end-diastolic velocity of 24.4 cm/s . The mid internal carotid artery measures 137 cm/s peak systolic with an end-diastolic velocity of 25.6 cm/s . The distal segment measures 107 cm/s peak systolic with an end diastolic velocity of 9.68 cm/s . The velocities of the right common carotid artery are 141 cm/s peak systolic and 23.5 cm/s end- diastolic proximally and 146 cm/s peak systolic and 25.1 cm/s end-diastolic distally. The peak systolic velocity ratio of the internal to the common carotid artery is 0.94 . The right external carotid artery measures 138 cm/s peak systolic. The right vertebral artery is patent at 63.5 cm/s peak systolic and with antegrade flow. The proximal left internal carotid artery shows a highest peak systolic velocity of 115 cm/s with an end-diastolic velocity of 40.7 cm/s . The mid internal carotid artery measures 108 cm/s peak systolic with an end-diastolic velocity of 44.5 cm/s . The distal segment measures 122 cm/s peak systolic with an end diastolic velocity of 50.4 cm/s . The velocities of the left common carotid artery are 173 cm/s peak systolic and 35.7 cm/s end-diastolic proximally and 120 cm/s peak systolic and 27.1 cm/s end-diastolic distally. The peak systolic velocity ratio of the internal to the common carotid artery is 0.66 . The left external carotid artery measures 132 cm/s peak systolic. The left vertebral artery is patent at 102 cm/s peak systolic with antegrade flow. US/US carotid doppler BI IMPRESSION: NO HEMODYNAMICALLY SIGNIFICANT STENOSIS OF EITHER EXTRACRANIAL INTERNAL CAROTID ARTERY. BOTH VERTEBRAL ARTERIES ARE PATENT WITH ANTEGRADE FLOW. Impression dictated by: Sudeep North M.D.03/05/2024 10:21 AM Dictation Location: [place] [address] Tech: Marybel Savage Transcribed By: BOB 03/05/24 1021 Dictated By: Sudeep North MD 03/05/24 1019 Signed By: 03/05/24 1021 Normal [facility] ABO/Rh Retypeon 03-04-2024 ABO/RH Recheck Result Positive Normal [facility] Comment on above: Result Comment: PERF ORMED BY: [place] [address] PATHOLOGIST DIRECTOR OF RECRUITMENT AND ADMISSIONS CLIFFORD LOBATO M.D. Comprehensive Metabolic Pane guy 03-04-2024 Albumin [Mass/Vol] 3.3 g/dL Low 3.5-5.7 [facility] Comment on above: Performed By: #### C MP, PHOS, MG, SCAN CBC #### [address] Albumin/Globulin [Mass ratio] 1.1 {ratio} Normal [facility] Comment on above: Performed By: #### C MP, PHOS, MG, SCAN CBC #### [facility] [address] [place] [id number] [place] ALP [Catalytic activity/Vol] 105 U/L High 34-104 [facility] Comment on above: Performed By: #### C MP, PHOS, MG, SCAN CBC #### [address] ALT [Catalytic activity/Vol] 9 U/L Normal 7-52 [facility] Comment on above: Performed By: #### C MP, PHOS, MG, SCAN CBC #### [address] Anion gap [Moles/Vol] 11.1 mmol/L Normal 6.0-15.0 [facility] Comment on above: Performed By: #### C MP, PHOS, MG, SCAN CBC #### [address] AST [Catalytic activity/Vol] 11 U/L Low 13-39 [facility] Comment on above: Performed By: #### C MP, PHOS, MG, SCAN CBC #### [address] Bilirubin [Mass/Vol] 0.2 mg/dL Low 0.3-1.0 [facility] Comment on above: Performed By: #### C MP, PHOS, MG, SCAN CBC #### [address] Calcium [Mass/Vol] 8.3 mg/dL Low 8.6-10.3 [facility] Comment on above: Performed By: #### C MP, PHOS, MG, SCAN CBC #### [address] Chloride [Moles/Vol] 104 mmol/L Normal 98-107 [facility] Comment on above: Performed By: #### C MP, PHOS, MG, SCAN CBC #### [address] CO2 [Moles/Vol] 27.6 mmol/L Normal 21.0-31.0 [facility] Comment on above: Performed By: #### C MP, PHOS, MG, SCAN CBC #### [address] [place] [address] [place] Creatinine [Mass/Vol] 1.83 mg/dL High 0.70-1.30 [facility] Comment on above: Performed By: #### C MP, PHOS, MG, SCAN CBC #### [address] Creatinine Clr Calc Pharmacy 48.29 Normal [facility] Comment on above: Performed By: #### C MP, PHOS, MG, SCAN CBC #### [place] [address] [place] GFR/1.73 sq M.predicted MDRD (S/P/Bld) [Vol rate/Area] 42.245 mL/min/{1.73_m2} Normal [facility] Comment on above: Performed By: #### C MP, PHOS, MG, SCAN CBC #### [address] Globulin (S) [Mass/Vol] 2.9 g/dL Normal [facility] Comment on above: Performed By: #### C MP, PHOS, MG, SCAN CBC #### [address] Glucose [Mass/Vol] 150 mg/dL High 70-100 [facility] Comment on above: Result Comment: [facility] Glucose Reference Range is dependent on time and content of last meal. Glucose of more than 200 mg/dL in a nonstressed, ambulatory subject supports the diagnosis of Diabetes Mellitus. ADA recommended reference range Performed By: #### C MP, PHOS, MG, SCAN CBC #### [address] Potassium [Moles/Vol] 3.7 mmol/L Normal 3.5-5.1 [facility] Comment on above: Performed By: #### C MP, PHOS, MG, SCAN CBC #### [address] Protein [Mass/Vol] 6.2 g/dL Low 6.4-8.9 [facility] Comment on above: Performed By: #### C MP, PHOS, MG, SCAN CBC #### [facility] [address] Sodium [Moles/Vol] 139 mmol/L Normal 136-145 [facility] Comment on above: Performed By: #### C MP, PHOS, MG, SCAN CBC #### [facility] [address] Urea nitrogen [Mass/Vol] 36 mg/dL High 7-25 [facility] Comment on above: Performed By: #### C MP, PHOS, MG, SCAN CBC #### [facility] [address] ECH echo transthoracicon ECH echo transthoracic [facility] [place] [address] [place] [address] Echocardiogram Signed Patient: Solomon Pickard SR MR#: [id number] : 1965 Acct:[id number] Age/Sex: 58 / M ADM Date: 03/03/24 Loc: Room: [address] [place] [address] Type: ADM INOo Attending Dr: João Powell MD Ordering Provider: João Powell MD Date of Service: 03/03/24 ECH/ECH echo transthoracic: syncope Copies to: DO João Ramos MD A AM Patient Location: : 1965 Gender: Male (MM/DD/YYYY) Age: 58 Years Ordering Physician: João Powell Height: 71.65 in Weight: 200.629 lb Performed By: Kassi Read BSA: 2.13 m2 BP: 119 / 74 mmHg HR: 87 bpm Reason For Study: syncope History: PVD, Lung nodule, HTN, CKD, Afib, DC, HLD, DM, CHF, Smoker + -+ Interpretation Summary 58 y/o M with syncope Normal LV systolic function Mild proximal ascending aortic size, clinical follow up advised Procedure/Quality: A two-dimensional transthoracic echocardiogram with color flow and Doppler was performed. Left Ventricle: LV chamber size at upper normal limits with mild hypertrophy. Left ventricular systolic function is normal. Left Atrium: The left atrium appears normal in size. Right Atrium: The right atrium appears normal in size. Right Ventricle: The right ventricular systolic function is normal. Aortic Valve: The aortic valve is not well visualized. No hemodynamically significant valvular aortic stenosis. Mitral Valve: The mitral valve is normal in structure. Tricuspid Valve: There is mild tricuspid regurgitation. Pulmonic Valve: The pulmonic valve is not well visualized. Arteries: Aortic root size at upper normal limits. proximal ascending aortic size: mild ectasia. Pericardium/Pleura: Pericardium not visualized in its entirety. IVC/Hepatic Veins: IVC size: normal. MMode/2D Measurements Calculations IVSd (0.7-1.1 cm): 1.00 cm LVIDd (3.7-5.4 cm): 5.3 cm LVPWd (0.7-1.1 cm): 1.20 cm LVIDs (2.3-3.6 cm): 3.7 cm LA dimension (2.3-4.0 cm): 3.8 Ao root diam (2.0-3.2 cm): 3.2 cm cm FS: 30.2 % Ao root area: 8.0 cm2 EDV(Teich): 135.3 ml LVOT diam: 2.00 cm ESV(Teich): 58.1 ml LVOT area: 3.1 cm2 EF(Teich): 57.1 % LAV(MOD-sp2): 50.5 ml LAV(MOD-sp4): 35.7 ml LA A2 area: 20.0 cm2 LA A4 area: 15.3 cm2 LA length (vol): 5.2 cm LA vol: 50.0 ml LA vol index: 23.5 ml/m2 Doppler Measurements Calculations MV E max palmira: 116.0 cm/sec Ao V2 max: 161.0 cm/sec MV A max palmira: 102.0 cm/sec Ao max P.4 mmHg MV dec time: 0.16 sec Ao mean P.0 mmHg MV dec slope: 714.0 cm/sec?? Ao V2 mean: 106.0 cm/sec E/E' lat: 9.6 Ao V2 VTI: 33.2 cm E/E' med: 12.1 RON(I,D): 2.29 cm2 RON(V,D): 2.38 cm2 LV V1 max: 122.0 cm/sec LV V1 max P.0 mmHg LV V1 mean: 79.6 cm/sec LV V1 mean P.0 mmHg LV V1 VTI: 24.2 cm + + + + + --+ + : Electronically : : : : signed by: Maribel : : Radha : : : : on: 03/04/2024, : : : : 4:24 PM : + --+ + Transcribed By: SCV Performed At: 03/04/24 0911 Signed By: Maribel Garcia DO 03/04/24 1624 Normal [facility] Ferritin 03-04-2024 Ferritin Normal 23.9-336.2 [facility] Comment on above: Order Comment: Comme nt add Result Comment: Spec imen hemolyzed, redraw requested Performed By: #### G NELI #### Point of Care testing , Ferritin [Mass/volume] in Se rum or PlasmaOrdered By: João Powell on 03-04-2024 Ferritin [Mass/Vol] 7.7 ng/mL Low 23.9-336.2 [facility] Folate [Mass/volume] in Seru m or PlasmaOrdered By: João Powell on 03-04-2024 Folate [Mass/Vol] 7.8 ng/mL >5.9 [facility] Comment on above: Folate reference ran ge: >5.9 ng/mlThe WHO technical consultation on folate and vitamin [id number] has determined that folate concentrations lessthan 4 ng/ml are considered deficient. Glucose Poct Glucometerson 0 03-04-2024 Commemt1 Glu2: Cleaned Meter Normal [facility] Comment on above: Result Comment: PERF ORMED BY: [address] [place] [address] PATHOLOGIST DIRECTOR OF RECRUITMENT AND ADMISSIONS CLIFFORD LOBATO M.D. Performed By: #### C MP, PHOS, MG, SCAN CBC #### [facility] [address] Glucose [Mass/Vol] 213 mg/dL Normal [facility] Comment on above: Result Comment: [facility] Glucose Reference Range is dependent on time and content of last meal. Glucose of more than 200 mg/dL in a nonstressed, ambulatory subject supports the diagnosis of Diabetes Mellitus. Performed By: #### C MP, PHOS, MG, SCAN CBC #### [facility] [address] [place] [address] [place] Glucose [Mass/Vol] 279 mg/dL Normal [facility] Comment on above: Result Comment: [facility] Glucose Reference Range is dependent on time and content of last meal. Glucose of more than 200 mg/dL in a nonstressed, ambulatory subject supports the diagnosis of Diabetes Mellitus. PERFORMED BY: [facility] [address] [facility] [place] [address] PATHOLOGIST DIRECTOR OF RECRUITMENT AND ADMISSIONS CLIFFORD LOBATO M.D. Performed By: #### G LULS #### Point of Care testing , Glucose [Mass/Vol] 236 mg/dL Normal [facility] Comment on above: Result Comment: [facility]iver om Glucose Reference Range is dependent on time and content of last meal. Glucose of more than 200 mg/dL in a nonstressed, ambulatory subject supports the diagnosis of Diabetes Mellitus. PERFORMED BY: [facility] [address] [facility] [place] [address] PATHOLOGIST DIRECTOR OF RECRUITMENT AND ADMISSIONS CLIFFORD LOBATO M.D. Performed By: #### G LULS #### Point of Care testing , Glucose [Mass/Vol] 242 mg/dL Normal [facility] Comment on above: Result Comment: Vandiver Glucose Reference Range is dependent on time and content of last meal. Glucose of more than 200 mg/dL in a nonstressed, ambulatory subject supports the diagnosis of Diabetes Mellitus. PERFORMED BY: [facility] [address] [facility] [place] [address] PATHOLOGIST DIRECTOR OF RECRUITMENT AND ADMISSIONS CLIFFORD LOBATO M.D. Performed By: #### G LULS #### Point of Care testing , Iron [Mass/volume] in Serum or PlasmaOrdered By: João Powell on 03-04-2024 Iron [Mass/Vol] 13 ug/dL Low 50-212 [facility] Comment on above: Order Comment: Comme nt add Performed By: #### G LULS #### Point of Care testing , Iron and TIBC Profileon 02-05 % Iron Saturation 3.2 % Low 20-50 [facility] Comment on above: Order Comment: Comme nt add Performed By: #### G LULS #### Point of Care testing , Total Iron Binding Capacity 403 ug/dL Normal 255-450 [facility] Comment on above: Order Comment: Comme nt add Performed By: #### G LULS #### Point of Care testing , Iron binding capacity [Mass/ volume] in Serum or PlasmaOrdered By: João Powell on 03-04-2024 Iron binding capacity [Mass/Vol] 403 ug/dL 255-450 [facility] Iron saturation [Mass Fracti on] in Serum or PlasmaOrdered By: João Powell on 03-04-2024 Iron saturation [Mass fraction] 3.2 % Low 20-50 [facility] LeukoReduced RBCon LeukoReduced RBC TRANSFUSED 03/04/24 1657 Normal [facility] MR angio MR brain w/oon 02-05 MR angio MR brain w/o [facility] [place] [address] [place] [address] MRI Report Signed Patient: Solomon Pickard SR MR#: [id number] : 1965 Acct:[id number] Age/Sex: 58 / M ADM Date: 03/03/24 Loc: 3T Room: [address] [place] [address] Type: ADM INOo Attending Dr: João Powell MD Copies to: João Powell MD Ordering Provider: João Powell MD Date of Service: 03/04/24 MR/MR angio MR brain w/o: syncope and tremors MRA OF THE INTRACRANIAL CIRCULATION TECHNIQUE: 3-D [id number] imaging of the [place] of [place] obtained. HISTORY: Syncope. Lightheadedness. Altered mental status. The visualized carotid and the vertebrobasilar system are unremarkable. No abnormality of the anterior, middle and posterior cerebral arteries identified. No arterial occlusion, stenosis or dissection identified. No intracranial aneurysm identified. MR/MR angio MR brain w/o IMPRESSION: UNREMARKABLE MRA OF THE INTRACRANIAL CIRCULATION. MRI the Brain without contrast TECHNIQUE: Multiplanar T1 and T2-weighted imaging of the brain. HISTORY: Syncope COMPARISON: none VENTRICLES: Unremarkable BRAIN VOLUME: Mild atrophy BRAIN PARENCHYMAL SIGNAL INTENSITY: Nonspecific focus of increased T2/or signal intensity in the LEFT frontal periventricular white matter. BLEED: None MASS EFFECT: No mass effect DIFFUSION RESTRICTION: None GRADIENT ECHO PARENCHYMAL SIGNAL LOSS: None MIDBRAIN: The midbrain structures are unremarkable. MAIK: Unremarkable MEDULLA: Unremarkable INTERNAL AUDITORY CANALS: Unremarkable SINUSES: Unremarkable ORBITS: Grossly unremarkable MASTOIDS: Unremarkable ENHANCEMENT: No contrast enhancement given IMPRESSION: No acute intracranial process. Impression dictated by: Sudeep Lind M.D.03/04/2024 9:07 PM Dictation Location: [place] [address] Transcribed By: [facility] 03/04/242106 Dictated By: Sudeep Lind DO 03/04/242055 Signed By: 03/04/242106 Normal [facility] Magnesiumon 03-04-2024 Magnesium [Mass/Vol] 1.3 mg/dL Low 1.9-2.7 [facility] Comment on above: Result Comment: PERF ORMED BY: [place] [address] PATHOLOGIST DIRECTOR OF RECRUITMENT AND ADMISSIONS CLIFFORD LOBATO M.D. Performed By: #### C MP, PHOS, MG, SCAN CBC #### [address] Ovalocyte detectionOrdered B y: João Powell on 03-04-2024 Ovalocytes LM Ql (Bld) Slight Fi [facility] Phosphoruson 03-04-2024 Phosphate [Mass/Vol] 3.5 mg/dL Normal 2.5-4.5 [facility] Comment on above: Performed By: #### C MP, PHOS, MG, SCAN CBC #### [address] Redraw Ferritinon 03-04-2024 Redraw Ferritin 7.7 ng/mL Low 23.9-336.2 [facility] Comment on above: Performed By: #### G LULS #### Point of Care testing , Redraw Folateon 03-04-2024 Redraw Folate 7.8 ng/mL Normal >5.9 [facility] Comment on above: Result Comment: Aure te reference range: >5.9 ng/ml The WHO technical consultation on folate and vitamin b12 deficiencies has determined that folate concentrations less than 4 ng/ml are considered deficient. Performed By: #### G LULS #### Point of Care testing , Scan and CBCon 03-04-2024 Anisocytosis Ql (Bld) Moderate Normal [facility] Comment on above: Performed By: #### C MP, PHOS, MG, SCAN CBC #### [address] Basophils (Bld) [#/Vol] 0.1 10*3/uL Normal 0.0-0.2 [facility] Comment on above: Performed By: #### C MP, PHOS, MG, SCAN CBC #### [address] Basophils/100 WBC (Bld) 2.4 % Normal . [facility] Comment on above: Performed By: #### C MP, PHOS, MG, SCAN CBC #### [address] Eosinophils (Bld) [#/Vol] 0.2 10*3/uL Normal 0.0-0.45 [facility] Comment on above: Performed By: #### C MP, PHOS, MG, SCAN CBC #### [address] Eosinophils/100 WBC (Bld) 3.6 % Normal . [facility] Comment on above: Performed By: #### C MP, PHOS, MG, SCAN CBC #### [address] Erythrocyte distribution width (RBC) [Ratio] 20.8 % High 12.0-14.8 [facility] Comment on above: Performed By: #### C MP, PHOS, MG, SCAN CBC #### [address] Hematocrit (Bld) [Volume fraction] 23.7 % Low 38.8-50.0 [facility] Comment on above: Performed By: #### C MP, PHOS, MG, SCAN CBC #### [address] Hemoglobin (Bld) [Mass/Vol] 7.4 g/dL Low 13.0-17.0 [facility] Comment on above: Performed By: #### C MP, PHOS, MG, SCAN CBC #### [address] Hypochromasia Slight Normal [facility] Comment on above: Performed By: #### C MP, PHOS, MG, SCAN CBC #### [address] Lymphocytes (Bld) [#/Vol] 1.3 10*3/uL Normal 1.00-4.8 [facility] Comment on above: Performed By: #### C MP, PHOS, MG, SCAN CBC #### [address] Lymphocytes/100 WBC (Bld) 22.8 % Normal . [facility] Comment on above: Performed By: #### C MP, PHOS, MG, SCAN CBC #### [address] MCH (RBC) [Entitic mass] 21.8 pg Low 27.5-35.2 [facility] Comment on above: Performed By: #### C MP, PHOS, MG, SCAN CBC #### [address] MCV (RBC) [Entitic vol] 69.5 fL Low 83.5-101 [facility] Comment on above: Performed By: #### C MP, PHOS, MG, SCAN CBC #### [address] Mean Corpuscular HGB Conc 31.3 g/dL Low 32.5-35.6 [facility] Comment on above: Performed By: #### C MP, PHOS, MG, SCAN CBC #### [address] Monocytes (Bld) [#/Vol] 0.9 10*3/uL High 0.0-0.8 [facility] Comment on above: Performed By: #### C MP, PHOS, MG, SCAN CBC #### [address] Monocytes/100 WBC (Bld) 16.7 % Normal . [facility] Comment on above: Performed By: #### C MP, PHOS, MG, SCAN CBC #### [facility] [address] Neutrophils (Bld) [#/Vol] 3.0 10*3/uL Normal 1.8-7.7 [facility] Comment on above: Performed By: #### C MP, PHOS, MG, SCAN CBC #### [facility] [address] Neutrophils/100 WBC (Bld) 54.5 % Normal . [facility] Comment on above: Performed By: #### C MP, PHOS, MG, SCAN CBC #### [address] NRBC% 0.3 /100{WBC} Normal 0-0.5 [facility] Comment on above: Performed By: #### C MP, PHOS, MG, SCAN CBC #### [address] Ovalocytes Slight Normal [facility] Comment on above: Performed By: #### C MP, PHOS, MG, SCAN CBC #### [address] Platelet Estimate Normal Normal Normal [facility] Comment on above: Performed By: #### C MP, PHOS, MG, SCAN CBC #### [address] Platelet mean volume (Bld) [Entitic vol] 8.2 fL Normal 6.6-10.[address] [facility] Comment on above: Performed By: #### C MP, PHOS, MG, SCAN CBC #### [address] Platelet Morphology Normal Normal Normal [facility] Comment on above: Result Comment: PERF ORMED BY: [place] [address] PATHOLOGIST DIRECTOR OF RECRUITMENT AND ADMISSIONS CLIFFORD LOBATO M.D. Performed By: #### C MP, PHOS, MG, SCAN CBC #### [place] [address] [place] Platelets (Bld) [#/Vol] 394 10*3/uL Normal 150-450 [facility] Comment on above: Performed By: #### C MP, PHOS, MG, SCAN CBC #### [facility] [address] [place] [address] Polychromasia Slight Normal [facility] Comment on above: Performed By: #### C MP, PHOS, MG, SCAN CBC #### [facility] [address] [place] [address] RBC (Bld) [#/Vol] 3.41 10*6/uL Low 3.90-5.60 [facility] Comment on above: Performed By: #### C MP, PHOS, MG, SCAN CBC #### [facility] [address] [place] [address] WBC (Bld) [#/Vol] 5.5 10*3/uL Normal 4.1-10.5 [facility] Comment on above: Performed By: #### C MP, PHOS, MG, SCAN CBC #### [address] Thyroid Stimulating Hormoneo n 03-04-2024 Thyroid Stimulating Hormone Normal 0.45-5.33 [facility] Comment on above: Order Comment: Comme nt add Result Comment: Spec imen hemolyzed, redraw requested PERFORMED BY: [place] [address] PATHOLOGIST DIRECTOR OF RECRUITMENT AND ADMISSIONS CLIFFORD LOBATO M.D. Performed By: #### G LULS #### Point of Care testing , Thyrotropin [Units/volume] i n Serum or PlasmaOrdered By: João Powell on 03-04-2024 TSH Qn 2.90 m[IU]/L 0.45-5.33 [facility] Comment on above: Result Comment: PERF ORMED BY: [place] [address] PATHOLOGIST DIRECTOR OF RECRUITMENT AND ADMISSIONS CLIFFORD LOBATO M.D. Performed By: #### G LULS #### Point of Care testing , Transferrin [Mass/volume] in Serum or PlasmaOrdered By: João Powell on 03-04-2024 Transferrin [Mass/Vol] 288 mg/dL 203-362 [facility] Comment on above: Order Comment: Comme nt add Performed By: #### G LULS #### Point of Care testing , Type and Screenon 03-04-2024 ABO and Rh group Nom (Bld) Blood group O Rh(D) positive Normal [facility] Comment on above: Order Comment: Numbe r of units to transfuse now? 1 Result Comment: PERF ORMED BY: [address] [address] PATHOLOGIST DIRECTOR OF RECRUITMENT AND ADMISSIONS CLIFFORD LOBATO M.D. Vit. B12/Folate Profileon Folate Normal >5.9 [facility] Comment on above: Order Comment: Comme nt add Result Comment: Spec imen hemolyzed, redraw requested Folate reference range: >5.9 ng/ml The WHO technical consultation on folate and vitamin b12 deficiencies has determined that folate concentrations less than 4 ng/ml are considered deficient. PERFORMED BY: [address] [address] PATHOLOGIST DIRECTOR OF RECRUITMENT AND ADMISSIONS CLIFFORD LOBATO M.D. Performed By: #### G LULS #### Point of Care testing , Vitamin B12 Normal 180-944 [facility] Comment on above: Order Comment: Comme nt add Result Comment: Spec imen hemolyzed, redraw requested Performed By: #### G LULS #### Point of Care testing , Vitamin B12 ser/plasOrdered By: João Powell on 03-04-2024 Cobalamin (Vitamin B12) [Mass/Vol] 170 pg/mL Low 180-914 [facility] Comment on above: Performed By: #### G LULS #### Point of Care testing , XR knee RT 2Von 03-04-2024 XR knee RT 2V [facility] [place] [address] [place] [address] XRay Report Signed Patient: Solomon Pickard SR MR#: [id number] : 1965 Acct:[id number] Age/Sex: 58 / M ADM Date: 03/03/24 Loc: Room: [address] [place] [address] Type: ADM INOo Attending Dr: João Powell MD Copies to: João Powell MD Ordering Provider: João Powell MD Date of Service: 03/04/24 XR/XR knee RT 2V: stump infection? 2 views RIGHT knee plain film COMPARISON: No prior postop imaging. HISTORY: Possible infection. Amputation lower leg 3 weeks ago. ACUTE FINDINGS: No acute findings DEGENERATIVE CHANGE: Unremarkable SOFT TISSUE FINDINGS: Soft tissue swelling at the amputation site. This may be postsurgical. No subcutaneous air. JOINT EFFUSION: None POSTOP CHANGES: Number bony amputation. No acute bony erosive changes. BONE MINERALIZATION: Adequate XR/XR knee RT 2V IMPRESSION: Soft tissue swelling at the site of the BKA. No subcutaneous air. No acute bony erosion. Impression dictated by: Sudeep Lind M.D.03/04/2024 5:02 PM Dictation Location: [place] [address] Transcribed By: [facility] 03/04/241701 Dictated By: Sudeep Lind DO 03/04/241700 Signed By: 03/04/241701 Normal [facility] Anisocytosis [Presence] in B lood by Light microscopyOrdered By: Kait Dan on 03-03-2024 Anisocytosis Ql (Bld) Marked Normal [facility] Comment on above: Performed By: #### C MP, PHOS, MG, SCAN CBC #### [facility] [address] [place] [address] Automated basophil %Ordered By: Kait Dan on 03-03-2024 Basophils/100 WBC (Bld) 1.7 % Normal . [facility] Comment on above: Performed By: #### C MP, PHOS, MG, SCAN CBC #### [facility] [address] [place] [address] Automated basophil countOrde red By: Kait Dan on 03-03-2024 Basophils (Bld) [#/Vol] 0.1 10*3/uL Normal 0.0-0.2 [facility] Comment on above: Performed By: #### C MP, PHOS, MG, SCAN CBC #### [address] Automated blood monocyte cou ntOrdered By: Kait Dan on 03-03-2024 Monocytes (Bld) [#/Vol] 0.8 10*3/uL Normal 0.0-0.8 [facility] Comment on above: Performed By: #### C MP, PHOS, MG, SCAN CBC #### [address] Automated eosinophil %Ordere d By: Kait Dan on 03-03-2024 Eosinophils/100 WBC (Bld) 3.2 % Normal . [facility] Comment on above: Performed By: #### C MP, PHOS, MG, SCAN CBC #### [address] Automated eosinophil countOr dered By: Kait Dan on 03-03-2024 Eosinophils (Bld) [#/Vol] 0.2 10*3/uL Normal 0.0-0.45 [facility] Comment on above: Performed By: #### C MP, PHOS, MG, SCAN CBC #### [address] Automated monocyte %Ordered By: Kait Dan on 03-03-2024 Monocytes/100 WBC (Bld) 11.3 % Normal . [facility] Comment on above: Performed By: #### C MP, PHOS, MG, SCAN CBC #### [address] Automated neutrophil %Ordere d By: Kait Dan on 03-03-2024 Neutrophils/100 WBC (Bld) 65.6 % Normal . [facility] Comment on above: Performed By: #### C MP, PHOS, MG, SCAN CBC #### [address] BNP ser/plasOrdered By: Delfina Dan on 03-03-2024 Natriuretic peptide B (Bld) [Mass/Vol] 23.0 pg/mL 5-100 [facility] Comment on above: Result Comment: PERF ORMED BY: [place] [address] PATHOLOGIST DIRECTOR OF RECRUITMENT AND ADMISSIONS CLIFFORD LOBATO M.D. Performed By: #### C MP, PHOS, MG, SCAN CBC #### [facility] [address] [place] [address] Basic Metabolic Panelon 02-04 Creatinine Clr Calc Pharmacy 44.86 Normal [facility] Comment on above: Result Comment: PERF ORMED BY: [place] [address] PATHOLOGIST DIRECTOR OF RECRUITMENT AND ADMISSIONS CLIFFORD LOBATO M.D. Performed By: #### C MP, PHOS, MG, SCAN CBC #### [facility] [address] [place] [address] GFR/1.73 sq M.predicted MDRD (S/P/Bld) [Vol rate/Area] 38.669 mL/min/{1.73_m2} Normal [facility] Comment on above: Performed By: #### C MP, PHOS, MG, SCAN CBC #### [facility] [address] [place], [place] [id number] [facility] Bilirubin Test strip Ql (U)O rdered By: Kait Dan on 03-03-2024 Bilirubin Ql (U) Negative Negative [facility] COVID CepheidOrdered By: Jeremi Dan on 03-03-2024 SARS-CoV-2 (COVID-19) Ab IA Ql Negative Negative [facility] Comment on above: This is a duplicate Cepheid Xpert Xpress CoV-2/Flu/RSV Plus RNA by RT-PCR result to be used for statistical tracking purpose only. SARS-CoV-2 (COVID-19) RNA NELLY+probe Ql (Unsp spec) [facility] SARS-CoV-2 (COVID-19) RNA NELLY+probe Ql (Unsp spec) Negative Normal Negative [facility] Comment on above: Result Comment: This is a duplicate Cepheid Xpert Xpress CoV-2/Flu/RSV Plus RNA by RT-PCR result to be used for statistical tracking purpose only. PERFORMED BY: [address] [place] [address] PATHOLOGIST DIRECTOR OF RECRUITMENT AND ADMISSIONS CLIFFORD LOBATO M.D. Performed By: #### C DOMINIK, MG BERTHA, SCAN CBC #### [facility] [address] [place] [id number] [facility] COVID-19 / Flu A/B / RSV PCR on 03-03-2024 SARS-CoV-2 (COVID-19) RNA NELLY+probe Ql (Unsp spec) COVID-19 Cepheid Result Negative for SARS-CoV-2 RNA by RT-PCR Flu A Cepheid Result Negative for Flu A RNA by RT-PCR Flu B Cepheid Result Negative for Flu B RNA by RT-PCR RSV Cepheid Result Negative for RSV RNA by RT-PCR COVID19 Blank Space ---- Reference: Negative COVID19 Blank Space ---- Cepheid Disclaimer The Cepheid Xpert Xpress CoV-2/Flu/RSV Plus has Cepheid Disclaimer not been FDA cleared or approved; this test has Cepheid Disclaimer been authorized by FDA under an EUA for use by Cepheid Disclaimer authorized laboratories; this test has been Cepheid Disclaimer authorized only for the simultaneous qualitative Cepheid Disclaimer detection and differentiation of nucleic acids from Cepheid Disclaimer SARS-CoV-2, influenza A, influenza B, and Cepheid Disclaimer respiratory syncytial virus (RSV), and not for any Cepheid Disclaimer other viruses or pathogens; and this test is only Cepheid Disclaimer authorized for the duration of the declaration that Cepheid Disclaimer circumstances exist justifying the authorization of Cepheid Disclaimer emergency use of in vitro diagnostic tests for Cepheid Disclaimer detection and/or diagnosis of COVID-19 under Cepheid Disclaimer Section 564(b)(1) of the Act, 21 U.S.C. 360bbb- Cepheid Disclaimer 3(b)(1), unless the authorization is terminated or Cepheid Disclaimer revoked sooner. PERFORMED BY: [place] [address] PATHOLOGIST DIRECTOR OF RECRUITMENT AND ADMISSIONS CLIFFORD LOBATO M.D. Normal [facility] Comment on above: Performed By: #### C MP, PHOS, MG, SCAN CBC #### [address] abdomen pelvis w conon CT abdomen pelvis w con [facility] [place] [address] [place] [address] CT Scan Report Signed Patient: Solomon Pickard SR MR#: [id number] : 1965 Acct:[id number] Age/Sex: 58 / M ADM Date: 03/03/24 Loc: ER Room: Type: PRE ER Attending Dr: Copies to: Kait Dan MD Ordering Provider: Kait Dan MD Date of Service: 03/03/24 CT/CT abdomen pelvis w con: lower abd tenderness CT Abdomen and Pelvis withcontrast TECHNIQUE: Axial imaging with 2-D reconstruction.90 cc of Isovue-300. The CT exam was performed using one or more the following dose reduction techniques: Automated exposure control, adjustment of the MA and/or Kv according to patient size, or use of the iterative reconstruction technique. COMPARISON: 04/24/20 History: Fatigue. Lower abdominal pain. RIGHT BKA 3 weeks ago. LIMITATIONS: None LOWER THORAX Unremarkable LIVER: Unremarkable punctate calcifications consistent with remote granulomatous changes. GALLBLADDER: No gallbladder abnormality identified. BILE DUCTS: No dilatation SPLEEN: Unremarkable punctate calcifications consistent with remote granulomatous changes. 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 2.2 cm LEFT renal cyst. AORTA: No abdominal aortic aneurysm identified. Atherosclerosis. Bilateral iliac artery stents. RIGHT SFA bypass graft RETROPERITONEUM: No significant retroperitoneal abnormalities identified. MESENTERY:Unremarkable SMALL BOWEL: The small bowel loops are nondistended. APPENDIX: Appendectomy changes identified. COLON: Moderate constipation. URINARY BLADDER: Urinary bladder is unremarkable. REPRODUCTIVE SYSTEM: Reproductive structures are unremarkable. PNEUMOPERITONEUM: None PERITONEAL FLUID:None BONY STRUCTURES: Unremarkable ABDOMINAL WALL: Unremarkable CT/CT abdomen pelvis w con IMPRESSION: No acute findings. Moderate constipation. Impression dictated by: Sudeep Lind M.D.03/03/2024 3:01 PM Dictation Location: [facility] Transcribed By: BOB 03/03/24 1501 Dictated By: Sudeep Lind DO 03/03/24 1454 Signed By: 03/03/24 1501 Normal [facility] CT head/brain wo conon 03-03 CT head/brain wo con [facility] [place] [address] [place] [address] CT Scan Report Signed Patient: Solomon Pickard SR MR#: [id number] : 1965 Acct:[id number] Age/Sex: 58 / M ADM Date: 03/03/24 Loc: Room: [address] [place] [address] Type: ADM INOo Attending Dr: João Powell MD Copies to: MD João Easley MD Ordering Provider: Kait Dan MD Date of Service: 03/03/24 CT/CT head/brain wo con: syncopal episode Unenhanced head CT TECHNIQUE: Contiguous axial imaging of the head. The CT exam was performed using one or more the following dose reduction techniques: Automated exposure control, adjustment of the MA and/or Kv according to patient size, or use of the iterative reconstruction technique. COMPARISON: None HISTORY: Fatigue. Syncope. VENTRICLES: Within normal limits ATROPHY: Mild diffuse atrophy BRAIN PARENCHYMA: Decreased density of the white matter is most consistent with chronic small vessel disease. HEMORRHAGE: None HERNIATION: No mass effect or herniation INFARCTION: No recent vascular distribution infarction is seen. EXTRA-AXIAL FLUID COLLECTIONS None MIDBRAIN: Unremarkable MAIK: Unremarkable MEDULLA: Unremarkable SINUSES: Unremarkable ORBITS: Grossly unremarkable MASTOIDS: Unremarkable BONY STRUCTURES Intact ADDITIONAL FINDINGS: CT/CT head/brain wo con IMPRESSION: No acute findings. Impression dictated by: uSdeep Lind M.D.03/03/2024 5:50 PM Dictation Location: [facility]01 Transcribed By: [facility] 03/03/24 1750 Dictated By: Sudeep Lind DO 03/03/24 1746 Signed By: 03/03/24 1750 Normal [facility] Calcium [Mass/volume] in Ser um or PlasmaOrdered By: Kait Dan on 03-03-2024 Calcium [Mass/Vol] 8.6 mg/dL Normal 8.6-10.3 [facility] Comment on above: Performed By: #### C MP, PHOS, MG, SCAN CBC #### [facility] [address] Capillary blood glucose ashley urement by glucometer (mass/volume)Ordered By: Kait Dan on 03-03-2024 Glucose [Mass/Vol] 167 mg/dL Normal [facility] Comment on above: Random Glucose Refer ence Range is dependent on time and content of last meal. Glucose of more than 200 mg/dL in a nonstressed, ambulatory subject supports the diagnosis of Diabetes Mellitus. Result Comment: Vandiver Glucose Reference Range is dependent on time and content of last meal. Glucose of more than 200 mg/dL in a nonstressed, ambulatory subject supports the diagnosis of Diabetes Mellitus. PERFORMED BY: [address] [place] [address] PATHOLOGIST DIRECTOR OF RECRUITMENT AND ADMISSIONS CLIFFORD LOBATO M.D. Performed By: #### G LULS #### Point of Care testing , Carbon dioxide, total [Moles /volume] in Serum or PlasmaOrdered By: Kait Dan on 03-03-2024 CO2 [Moles/Vol] 24.3 mmol/L Normal 21.0-31.0 [facility] Comment on above: Performed By: #### C MP, PHOS, MG, SCAN CBC #### [facility] [address] [place] [address] [place] Chloride [Moles/volume] in S ilia or PlasmaOrdered By: Kait Dan on 03-03-2024 Chloride [Moles/Vol] 103 mmol/L Normal 98-107 [facility] Comment on above: Performed By: #### C MP, PHOS, MG, SCAN CBC #### [facility] [address] [place] [address] [place] Color of Urine by AutoOrdere d By: Kait Dan on 03-03-2024 Color (U) Colorless Yellow [facility] Comment on above: Order Comment: Name Collection Type:: Clean-Voided Midstream Performed By: #### C MP, PHOS, MG, SCAN CBC #### [facility] [address] [place] [address] [place] Creatinine [Mass/volume] in Serum or PlasmaOrdered By: Kait Dan on 03-03-2024 Creatinine [Mass/Vol] 1.97 mg/dL High 0.70-1.30 [facility] Comment on above: Performed By: #### C MP, PHOS, MG, SCAN CBC #### [facility] [address] [place] [address] [facility] ECG 12 lead ECGon 03-03-2024 ECG 12 lead ECG [facility] [place] [address] [place] [address] Electrocardiograph Report Signed Patient: Solomon Pickard MR#: [id number] : 1965 Acct:[id number] Age/Sex: 58 / M ADM Date: 03/03/24 Loc: ER Room: Type: [facility] ER Attending Dr: Ordering Provider: Kait Dan MD Date of Service: 03/03/24 ECG/ECG 12 lead ECG: Shortness of Breath/Dyspnea Copies to: Test Reason : Blood Pressure : 92/59 mmHG Vent. Rate : 84 BPM Atrial Rate : 84 BPM P-R Int : 236 ms QRS Dur : 98 ms QT Int : 366 ms P-R-T Axes : 45 78 21 degrees QTcB Int : 432 ms Sinus rhythm with 1st degree AV block Borderline ECG When compared with ECG of 12-Jul-2023 16:21, Sinus rhythm has replaced Junctional rhythm Confirmed by Kait Dan MD ([id number]) on 03/03/2024 5:35:37 PM Referred By: Electronically Signed By: Kait Dan MD Transcribed By: MUS Signed By Kait Dan MD 02/04 02/26 1735 Normal [facility] Erythrocyte distribution wid th [Ratio] by Automated countOrdered By: Kait Dan on 03-03-2024 Erythrocyte distribution width (RBC) [Ratio] 20.9 % High 12.0-14.8 [facility] Comment on above: Performed By: #### C MP, PHOS, MG, SCAN CBC #### [facility] [address] Erythrocytes [#/volume] in B lood by Automated countOrdered By: Kait Dan on 03-03-2024 RBC (Bld) [#/Vol] 3.58 10*6/uL Low 3.90-5.60 [facility] Comment on above: Performed By: #### C MP, PHOS, MG, SCAN CBC #### [facility] [address] Glucose Poct Glucometerson 0 03-03-2024 Commemt1 Glu2: Cleaned Meter Normal [facility] Comment on above: Result Comment: PERF ORMED BY: [facility] [address] [place] [address] PATHOLOGIST DIRECTOR OF RECRUITMENT AND ADMISSIONS CLIFFORD LOBATO M.D. Performed By: #### C MP, PHOS, MG, SCAN CBC #### [facility] [address] Glucose [Mass/Vol] 204 mg/dL Normal [facility] Comment on above: Result Comment: Vandiver om Glucose Reference Range is dependent on time and content of last meal. Glucose of more than 200 mg/dL in a nonstressed, ambulatory subject supports the diagnosis of Diabetes Mellitus. Performed By: #### C MP, PHOS, MG, SCAN CBC #### [facility] [address] Glucose [Mass/volume] in Ser um or PlasmaOrdered By: Kait Dan on 03-03-2024 Glucose [Mass/Vol] 142 mg/dL High 70-100 [facility] Comment on above: ADA recommended refe rence rangeRandom Glucose Reference Range is dependent on time and content of last meal. Glucose of more than 200 mg/dL in a nonstressed, ambulatory subject supports the diagnosis of Diabetes Mellitus. Result Comment: Vandiver om Glucose Reference Range is dependent on time and content of last meal. Glucose of more than 200 mg/dL in a nonstressed, ambulatory subject supports the diagnosis of Diabetes Mellitus. ADA recommended reference range Performed By: #### C MP, PHOS, MG, SCAN CBC #### [facility] [address] [place] [address] Glucose [Mass/volume] in Uri ne by Test stripOrdered By: Kait Dan on 03-03-2024 Glucose Test strip (U) [Mass/Vol] 500 mg/dL High Normal [facility] Hematocrit [Volume Fraction] of Blood by Automated countOrdered By: Kait Dan on 03-03-2024 Hematocrit (Bld) [Volume fraction] 24.7 % Low 38.8-50.0 [facility] Comment on above: Performed By: #### C MP, PHOS, MG, SCAN CBC #### [address] Hemoglobin Test strip Ql (U) Ordered By: Kait Dan on 03-03-2024 Hemoglobin Ql (U) Negative Negative [facility] Hemoglobin [Mass/volume] in BloodOrdered By: Kait Dan on 03-03-2024 Hemoglobin (Bld) [Mass/Vol] 7.8 g/dL Low 13.0-17.0 [facility] Comment on above: Performed By: #### C MP, PHOS, MG, SCAN CBC #### [facility] [address] [place] [address] [place] Hypochromia LM Ql (Bld)Order ed By: Kait Dan on 03-03-2024 Hypochromia Ql (Bld) Moderate [facility] Ketones [Presence] in Urine by Test stripOrdered By: Kait Dan on 03-03-2024 Ketones Ql (U) Negative Negative [facility] Comment on above: Order Comment: Name Collection Type:: Clean-Voided Midstream Performed By: #### C MP, PHOS, MG, SCAN CBC #### [facility] [address] [place] [address] Leukocyte esterase [Presence ] in Urine by Test stripOrdered By: Kait Dan on 03-03-2024 Leukocyte esterase Test strip Ql (U) Negative Negative [facility] Comment on above: Order Comment: Name Collection Type:: Clean-Voided Midstream Performed By: #### C MP, PHOS, MG, SCAN CBC #### [address] Leukocytes [#/volume] correc jorge for nucleated erythrocytes in Blood by Automated counOrdered By: Kait Dan on 03-03-2024 WBC corrected for nucl RBC Auto (Bld) [#/Vol] 7.2 10*3/uL 4.1-10.5 [facility] Leukocytes [#/volume] in Blo od by Automated countOrdered By: Kait Dan on 03-03-2024 WBC (Bld) [#/Vol] 7.2 10*3/uL Normal 4.1-10.5 [facility] Comment on above: Performed By: #### C MP, PHOS, MG, SCAN CBC #### [address] Lymphocytes [#/volume] in Bl ood by Automated countOrdered By: Kait Dan on 03-03-2024 Lymphocytes (Bld) [#/Vol] 1.3 10*3/uL Normal 1.00-4.8 [facility] Comment on above: Performed By: #### C MP, PHOS, MG, SCAN CBC #### [address] Lymphocytes/100 leukocytes i n Blood by Automated countOrdered By: Kait Dan on 03-03-2024 Lymphocytes/100 WBC (Bld) 18.2 % Normal . [facility] Comment on above: Performed By: #### C MP, PHOS, MG, SCAN CBC #### [place] [address] [place] MCH [Entitic mass] by Automa jorge countOrdered By: Kait Dan on 03-03-2024 MCH (RBC) [Entitic mass] 21.8 pg Low 27.5-35.2 [facility] Comment on above: Performed By: #### C MP, PHOS, MG, SCAN CBC #### [address] MCHC Auto (RBC) [Mass/Vol]Or dered By: Kait Dan on 03-03-2024 MCHC (RBC) [Mass/Vol] 31.6 g/dL Low 32.5-35.6 [facility] MCV [Entitic volume] by Auto mated countOrdered By: Kait Dan on 03-03-2024 MCV (RBC) [Entitic vol] 69.0 fL Low 83.5-101 [facility] Comment on above: Performed By: #### C MP, PHOS, MG, SCAN CBC #### [facility] [address] [place] [address] [place] Microcytes LM Ql (Bld)Ordere d By: Kait Dan on 03-03-2024 Microcytes Ql (Bld) Marked [facility] Monocyte distribution width [Entitic volume] in Blood by AutomatedOrdered By: Kait Dan on 03-03-2024 Monocyte distribution width Auto (Bld) [Entitic vol] 17.33 % 0.00-20.00 [facility] Neutrophils [#/volume] in Bl ood by Automated countOrdered By: Kait Dan on 03-03-2024 Neutrophils (Bld) [#/Vol] 4.7 10*3/uL Normal 1.8-7.7 [facility] Comment on above: Performed By: #### C MP, PHOS, MG, SCAN CBC #### [facility] [address] [place] [address] Nitrite Test strip Ql (U)Ord ered By: Kait Dan on 03-03-2024 Nitrite Ql (U) Negative Negative [facility] No Panel InformationOrdered By: Kait Dan on 03-03-2024 Estimated GFR (CKD-EPI) 38.669 mL/Min [facility] Creatinine Clearance (Chem 44.86 [facility] Nucleated erythrocytes [Pres ence] in Blood by Automated countOrdered By: Kait Dan on 03-03-2024 Nucleated RBC Auto Ql (Bld) 0.2 /100{WBC} 0-0.5 [facility] Platelet adequacy [Presence] in Blood by Light microscopyOrdered By: Kait Dan on 03-03-2024 Platelets LM Ql (Bld) Increased Normal [facility] Platelet mean volume [Entiti c volume] in Blood by Automated countOrdered By: Kait Dan on 03-03-2024 Platelet mean volume (Bld) [Entitic vol] 7.8 fL Normal 6.6-10.1 [facility] Comment on above: Performed By: #### C MP, PHOS, MG, SCAN CBC #### [facility] [address] Platelet morphology finding [Identifier] in BloodOrdered By: Kait Dan on 03-03-2024 Platelet morphology finding Nom (Bld) Normal Normal [facility] Platelets [#/volume] in Bloo d by Automated countOrdered By: Kait Dan on 03-03-2024 Platelets (Bld) [#/Vol] 452 10*3/uL High 150-450 [facility] Comment on above: Performed By: #### C MP, PHOS, MG, SCAN CBC #### [facility] [address] Polychromasia [Presence] in Blood by Light microscopyOrdered By: Kait Dan on 03-03-2024 Polychromasia LM Ql (Bld) Slight [facility] Potassium [Moles/volume] in Serum or PlasmaOrdered By: Kait Dan on 03-03-2024 Potassium [Moles/Vol] 3.9 mmol/L Normal 3.5-5.1 [facility] Comment on above: Performed By: #### C MP, PHOS, MG, SCAN CBC #### [facility] [address] Protein Test strip (U) [Mass /Vol]Ordered By: Kait Dan on 03-03-2024 Protein (U) [Mass/Vol] Negative Negative [facility] RBC morphologyOrdered By: Martha Dan on 03-03-2024 RBC morphology finding Nom (Bld) N/A [facility] Scan and CBCon 03-03-2024 Hypochromasia Moderate Normal [facility] Comment on above: Performed By: #### C MP, PHOS, MG, SCAN CBC #### [address] Mean Corpuscular HGB Conc 31.6 g/dL Low 32.5-35.6 [facility] Comment on above: Performed By: #### C MP, PHOS, MG, SCAN CBC #### [address] Microcytosis Marked Normal [facility] Comment on above: Performed By: #### C MP, PHOS, MG, SCAN CBC #### [address] Monocytes/100 WBC (Bld) 17.33 % Normal 0.00-20.00 [facility] Comment on above: Performed By: #### C MP, PHOS, MG, SCAN CBC #### [address] NRBC% 0.2 /100{WBC} Normal 0-0.5 [facility] Comment on above: Performed By: #### C MP, PHOS, MG, SCAN CBC #### [address] Platelet Estimate Increased Normal Normal [facility] Comment on above: Performed By: #### C MP, PHOS, MG, SCAN CBC #### [address] Platelet Morphology Normal Normal Normal [facility] Comment on above: Result Comment: PERF ORMED BY: [place] [address] PATHOLOGIST DIRECTOR OF RECRUITMENT AND ADMISSIONS CLIFFORD LOBATO M.D. Performed By: #### C MP, PHOS, MG, SCAN CBC #### [address] Polychromasia Slight Normal [facility] Comment on above: Performed By: #### C MP, PHOS, MG, SCAN CBC #### [address] Serum or plasma anion gap de terminationOrdered By: Kait Dan on 03-03-2024 Anion gap [Moles/Vol] 14.6 mmol/L Normal 6.0-15.0 [facility] Comment on above: Performed By: #### C MP, PHOS, MG, SCAN CBC #### [facility] [address] Sodium [Moles/volume] in Ser um or PlasmaOrdered By: Kait Dan on 03-03-2024 Sodium [Moles/Vol] 138 mmol/L Normal 136-145 [facility] Comment on above: Performed By: #### C MP, PHOS, MG, SCAN CBC #### [facility] [address] Specific gravity Test strip (U) [Rel density]Ordered By: Kait Dan on 03-03-2024 Specific gravity (U) [Rel density] 1.009 1.001-1.03 0 [facility] Troponin I High Sensitivityo n 03-03-2024 Troponin I High Sensitivity 4.5 pg/mL Normal 0.0-20.0 [facility] Comment on above: Result Comment: PERF ORMED BY: [place] [address] PATHOLOGIST DIRECTOR OF RECRUITMENT AND ADMISSIONS CLIFFORD LOBATO M.D. Performed By: #### G LULS #### Point of Care testing , Troponin I High Sensitivity 9.2 pg/mL Normal 0.0-20.0 [facility] Comment on above: Result Comment: PERF ORMED BY: [place] [address] PATHOLOGIST DIRECTOR OF RECRUITMENT AND ADMISSIONS CLIFFORD LOBATO M.D. Performed By: #### C MP, PHOS, MG, SCAN CBC #### [facility] [address] [place] [address] Troponin I.cardiac [Mass/vol ume] in Serum or Plasma by Detection limit <= 0.01 ng/Ordered By: Kait Dan on 03-03-2024 Troponin I.cardiac DL <= 0.01 ng/mL [Mass/Vol] 4.5 pg/mL 0.0-20.0 [facility] Urea nitrogen [Mass/volume] in Serum or PlasmaOrdered By: Kait Dan on 03-03-2024 Urea nitrogen [Mass/Vol] 46 mg/dL High 7-25 [facility] Comment on above: Performed By: #### C MP, PHOS, MG, SCAN CBC #### [facility] [address] Urinalysison 03-03-2024 Bilirubin,Urine Negative Normal Negative [facility] Comment on above: Order Comment: Name Collection Type:: Clean-Voided Midstream Performed By: #### C MP, PHOS, MG, SCAN CBC #### [facility] [address] Glucose Ql (U) 500 mg/dL High Normal [facility] Comment on above: Order Comment: Name Collection Type:: Clean-Voided Midstream Performed By: #### C MP, PHOS, MG, SCAN CBC #### [facility] [address] Nitrite,Urine Negative Normal Negative [facility] Comment on above: Order Comment: Name Collection Type:: Clean-Voided Midstream Performed By: #### C MP, PHOS, MG, SCAN CBC #### [address] Occult Blood,Urine Negative Normal Negative [facility] Comment on above: Order Comment: Name Collection Type:: Clean-Voided Midstream Result Comment: PERF ORMED BY: [place] [address] PATHOLOGIST DIRECTOR OF RECRUITMENT AND ADMISSIONS CLIFFORD LOBATO M.D. Performed By: #### C MP, PHOS, MG, SCAN CBC #### [place] [address] [place] Protein,Urine Negative Normal Negative [facility] Comment on above: Order Comment: Name Collection Type:: Clean-Voided Midstream Performed By: #### C MP, PHOS, MG, SCAN CBC #### [address] Specificy [place],Urine 1.009 Normal 1.001-1.03 0 [facility] Comment on above: Order Comment: Name Collection Type:: Clean-Voided Midstream Performed By: #### C MP, PHOS, MG, SCAN CBC #### [address] Urobilinogen,Urine Normal Normal Normal [facility] Comment on above: Order Comment: Name Collection Type:: Clean-Voided Midstream Performed By: #### C MP, PHOS, MG, SCAN CBC #### [facility] [address] [place] [address] Urine appearanceOrdered By: Kait Dan on 03-03-2024 Appearance (U) Clear Clear [facility] Comment on above: Order Comment: Name Collection Type:: Clean-Voided Midstream Performed By: #### C MP, PHOS, MG, SCAN CBC #### [address] Urobilinogen Test strip (U) [Mass/Vol]Ordered By: Kait Dan on 03-03-2024 Urobilinogen (U) [Mass/Vol] Normal mg/dL Normal [facility] XR chest 2V*on 03-03-2024 XR chest 2V* [facility] [place] [address] [place] [address] XRay Report Signed Patient: Solomon Pickard SR MR#: [id number] : 1965 Acct:[id number] Age/Sex: 58 / M ADM Date: 03/03/24 Loc: ER Room: Type: PRE ER Attending Dr: Copies to: Kait Dan MD Ordering Provider: Kait Dan MD Date of Service: 03/03/24 XR/XR chest 2V*: Shortness of Breath/Dyspnea Plain film chest 2 view HISTORY: Shortness of breath. COMPARISON: 07/12/23 FINDINGS: SUPPORT DEVICES: None POSTSURGICAL CHANGES: None HEART: Within normal limits PULMONARY CHAPIS: Within normal limits MEDIASTINUM: Unremarkable LUNGS AND PLEURA: No acute lung process, pleural effusion or pneumothorax identified. BONY STRUCTURES: Intact ADDITIONAL FINDINGS None XR/XR chest 2V* IMPRESSION: No acute process. Impression dictated by: Sudeep Lind M.D.03/03/2024 3:05 PM Dictation Location: [place] [address] Transcribed By: [facility] 03/03/24 1505 Dictated By: Sudeep Lind DO 03/03/24 1505 Signed By: 03/03/24 1505 Normal [facility] pH of Urine by Test stripOrd ered By: Kait Dan on 03-03-2024 pH (U) 5.0 [pH] 5.0-9.0 [facility] Comment on above: Order Comment: Name Collection Type:: Clean-Voided Midstream Performed By: #### C MP, PHOS, MG, SCAN CBC #### [address] Coding Queryon 02-22-2024 Coding Query Coding Query From: Rachelle Diaz RN To: Ben Corrigan III, DO; Sent: 02/20/2024 14:33:58 EDT ! Subject: Coding Query Due Date/Time: 02/21/2024 14:33:00 EDT Caller Name: PICKARD SOLOMON CHRISTIAN; Caller Number: H Documentation in the medical record indicates this patient has been admitted with or diagnosed as having: acute blood loss anemia The following is also documented in the medical record: 02/16 Progress note: 4. Anemia Acute Blood loss anemia, possibly post surgical loss hgb has remained stable post transfusion continue to monitor CBC today Throughout the course of the admission, documentation of this diagnosis has discontinued. Based on your medical judgment, please clarify the diagnosis and document any applicable treatment plan. The diagnosis: [___]Is a current diagnosis [___]Has been ruled out [___]Has been resolved [___]Other: In responding to this request, please exercise your independent professional judgement. The fact that a question is asked does not imply that any particular answer is desired or expected. 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 General Message Officeon General Message Office General Message O ffice --- --- --- --- --- --- --- --- --- From: [facility], DirectInbox To: SOLOMON PICKARD SR Sent: 02/22/24 02:30:41 AM EDT Subject: Discharge Summary Ready to View A summary regarding your recent visit is available in the Documents section of your health record. Normal [facility] Surgical Pathology Reporton 02-22-2024 Surgical Pathology Report [facility] [address] [place] [address]- Surgical Pathology Report Collected Date/Time: 02/12/2024 14:13 EDT Pathologist: Blair Blood MD Received Date/Time: 02/13/2024 07:26 EDT Simon HERRERA, Padmini Montes MD, Padmini Cain Surgical Pathology Report - 02/22/2024 14:10 EDT - Auth (Verified) Final Diagnosis RIGHT LOWER EXTREMITY, [id number]-[id number] AMPUTATION: - Gangrenous ulcer and artery atherosclerosis. - Seborrheic keratosis. - No evidence of osteomyelitis. - Resection margin uninvolved by acute inflammation. (Electronic Signature) Yan. Caitie MD 02/22/2024 14:10 Clinical Information Pre-Op Diagnosis: Atherosclerosis of [place] arteries of extremities with gangrene, right leg. 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 The toes are previously removed. Right foot portion measures 18 x 7.5 cm. The exposing bony segment measures 5.5 cm long. The dorsal part of the foot has a darker, rough, thickened appearance. From the top of the foot to the ankle measuring 9.5 x 3.5 cm. Sectioning tissue shows necrotic appearance. On the skin there is a pigmented lesion measuring 0.2 x 0.2 cm. Rn Picu sections are submitted in a total of ten cassettes: 1-5: Skin and soft tissue ulcerated areas 6-7: Artery 8: Bone near ulceration after decalcification 9-10: Bone from surgical margin after decalcification (DC) Gross of specimen was discussed with Dr. Dunne in Frozen Section Room at 1400. (DC) DC:MCA Microscopic Description Microscopic examination performed unless gross only specified. Normal [facility] Comment on above: Performed By: #### [id number] #### [facility] Laboratory [address] [place] [address] BMPon 02-21-2024 Anion gap [Moles/Vol] 8 mmol/L Normal 6-16 [facility] Comment on above: Performed By: #### 2 [id number] #### [facility] [address] [place] [address] Calcium [Mass/Vol] 8.6 mg/dL Low 8.9-11.1 [facility] Comment on above: Performed By: #### 2 [id number] #### [facility] [address] [place] [address] Chloride [Moles/Vol] 100 mmol/L Low 101-111 [facility] Comment on above: Performed By: #### 2 [id number] #### [facility] [address] [place] [address] CO2 [Moles/Vol] 30 mmol/L Normal 21-31 [facility] Comment on above: Performed By: #### 2 [id number] #### [facility] [address] [place] [address] Creatinine [Mass/Vol] 1.8 mg/dL High 0.5-1.3 [facility] Comment on above: Performed By: #### 2 [id number] #### [facility] [address] [place] [address] Glucose [Mass/Vol] 169 mg/dL Normal 55-199 [facility] Comment on above: Performed By: #### 2 [id number] #### [facility] [address] [place] [address] Potassium [Moles/Vol] 3.7 mmol/L Normal 3.5-5.3 [facility] Comment on above: Performed By: #### 2 [id number] #### [facility] [address] [place] [address] Sodium [Moles/Vol] 134 mmol/L Low 135-145 [facility] Comment on above: Performed By: #### 2 [id number] #### [facility] [address] [place] [address] Urea nitrogen [Mass/Vol] 26 mg/dL High 5-21 [facility] Comment on above: Performed By: #### 2 [id number] #### [facility] [address] [place] [address] Urea nitrogen/Creatinine [Mass ratio] 14 No Units Normal 10-20 [facility] Comment on above: Performed By: #### 2 [id number] #### [facility] [address] [place] [address] CBC w/ Auto Diffon 4 Basophils/100 WBC (Bld) 0.7 % Normal 0.0-2.0 [facility] Comment on above: Performed By: #### 2 [id number] #### [facility] [address] [place] [address] Basophils/Leukocytes Auto (Bld) [Pure # fraction] 0.1 E9/L Normal 0.0-0.2 [facility] [facility] Comment on above: Performed By: #### 2 [id number] #### [facility] [address] [place] [address] Eosinophils (Bld) [#/Vol] 0.4 E9/L Normal 0.0-0.5 [facility] Comment on above: Performed By: #### 2 [id number] #### [facility] [address] [place] [address] Eosinophils/100 WBC (Bld) 3.6 % Normal 0.0-8.0 [facility] Comment on above: Performed By: #### 2 [id number] #### [facility] [address] [place] [address] Erythrocyte distribution width (RBC) [Ratio] 21.4 % High 10.9-14.2 [facility] Comment on above: Performed By: #### 2 [id number] #### [facility] [address] [place] [address] Hematocrit (Bld) [Volume fraction] 25.6 % Low 37.7-49.0 [facility] Comment on above: Performed By: #### 2 [id number] #### [facility] [address] [place] [address] Hemoglobin (Bld) [Mass/Vol] 8.1 g/dL Low 13.5-17.5 [facility] Comment on above: Performed By: #### 2 [id number] #### [facility] [address] [place] [address] Hypochromia Auto Ql (Bld) PRESENT Invalid Interpretation Code [facility] Comment on above: Performed By: #### 2 [id number] #### [facility] [address] [place] [address] Lymphocytes (Bld) [#/Vol] 1.5 E9/L Normal 1.0-4.0 [facility] Comment on above: Performed By: #### 2 [id number] #### [facility] [address] [place] [address] Lymphocytes/100 WBC (Bld) 12.4 % Low 14.0-50.0 [facility] Comment on above: Performed By: #### 2 [id number] #### [facility] [address] [place] [address] MCH (RBC) [Entitic mass] 22.3 pg Low 27.0-34.0 [facility] Comment on above: Performed By: #### 2 [id number] #### [facility] [address] [place] [address] MCHC (RBC) [Mass/Vol] 31.5 g/dL Normal 31.4-36.0 [facility] Comment on above: Performed By: #### 2 [id number] #### [facility] [address] [place] [address] MCV (RBC) [Entitic vol] 70.7 fL Low 80.0-100.0 [facility] Comment on above: Performed By: #### 2 [id number] #### [facility] [address] [place] [address] Microcytes Ql (Bld) PRESENT Invalid Interpretation Code [facility] Comment on above: Performed By: #### 2 [id number] #### [facility] [address] [place] [address] Monocytes (Bld) [#/Vol] 1.1 E9/L High 0.2-1.0 [facility] Comment on above: Performed By: #### 2 [id number] #### [facility] [address] [place] [address] Neutrophils (Bld) [#/Vol] 9.3 E9/L High 2.0-7.5 [facility] Comment on above: Performed By: #### 2 [id number] #### [facility] [address] [place] [address] Neutrophils/100 WBC (Bld) 74.6 % Normal 36.0-75.0 [facility] Comment on above: Performed By: #### 2 [id number] #### [facility] [address] [place] [address] Platelet mean volume (Bld) [Entitic vol] 8.6 fL Normal 6.4-10.8 [facility] Comment on above: Performed By: #### 2 [id number] #### [facility] [address] [place] [address] Platelets (Bld) [#/Vol] 481.0 E9/L Normal 150.0-500. 0 [facility] Comment on above: Performed By: #### 2 [id number] #### [facility] [address] [place] [address] Platelets Large LM Ql (Bld) PRESENT Invalid Interpretation Code [facility] Comment on above: Performed By: #### 2 [id number] #### [facility] [address] [place] [address] RBC (Bld) [#/Vol] 3.6 E12/L Low 4.3-5.9 [facility] Comment on above: Performed By: #### 2 [id number] #### [facility] [address] [place] [address] RBC size Nom (Bld) NORMAL Invalid Interpretation Code [facility] Comment on above: Performed By: #### 2 [id number] #### [facility] [address] [place] [address] WBC corrected for nucl RBC Auto (Bld) [#/Vol] 12.5 E9/L High 4.0-11.0 [facility] Comment on above: Performed By: #### 2 [id number] #### [facility] [address] [place] [address] Capillary Glucose POCon 02-03 Glucose [Mass/Vol] 227 mg/dL High 55-99 [facility] Comment on above: Result Comment: Deon hathaway RN/ Performed By: #### 2 [id number] #### [facility] [address] [place] [address] Glucose [Mass/Vol] 177 mg/dL High 55-99 [facility] Comment on above: Result Comment: Deon hathaway RN/ Performed By: #### 2 [id number] #### [facility] [address] [place] [address] Glucose [Mass/Vol] 158 mg/dL High 55-99 [facility] Comment on above: Performed By: #### 2 [id number] #### 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 This Is Your Medications List Ensure Tenzin (Tenzin packet) albuterol (ProAir HFA) amitriptyline (amitriptyline 100 mg oral tablet) aspirin (aspirin 81 mg Oral EC Tab) atorvastatin (Lipitor 80 mg Tab) clopidogrel (Plavix 75 mg Tab) dulaglutide (Trulicity Pen 0.75 mg/0.5 mL subcutaneous solution) empagliflozin (Jardiance 10 mg oral tablet) furosemide (furosemide 40 mg Tab) glimepiride (Amaryl 2 mg Tab) hydrochlorothiazide-valsa rtan (hydrochlorothiazide-vals jorge 12.5 mg-160 mg Tab) insulin glargine (insulin glargine 100 units/mL SubQ Malaika 10 mL) insulin lispro isosorbide mononitrate (isosorbide mononitrate 30 mg ER Tab) metformin (metformin 1000 mg Tab) metoprolol (metoprolol tartrate 100 mg Tab) nicotine (nicotine 14 mg/24 hr Transderm ER Film) nitroglycerin (NitroStat 0.4 mg Tab) omeprazole (omeprazole 40 mg Cap-DR) oxycodone (oxyCODONE 5 mg Tab) polyethylene glycol 3350 (polyethylene glycol 3350 17 gram packet) pregabalin (pregabalin 200 mg Cap) rimegepant (Nurtec ODT 75 mg oral tablet, disintegrating) ropinirole (ropinirole 1 mg Tab) senna (senna 8.6 mg Tab) sitagliptin (Januvia 100 mg Tab) tamsulosin (tamsulosin 0.4 mg Cap) tiotropium (Spiriva 18 mcg Cap) [Image Removed: STOP]Stop taking these medications amlodipine (Norvasc 5 mg Tab) famotidine (famotidine 40 mg Tab) fenofibrate (fenofibrate 160 mg oral tablet) ranolazine (Ranexa 1000 mg oral tablet, extended release) tizanidine (tizanidine 4 mg oral capsule) Procedure History BKA - Below knee amputation (02/12/2024), Transmetatarsal amputation of foot (01/08/2024), TURP - Transurethral resection of prostate (04/13/2023), Cystoscopy (02/14/2023), Angiogram, Appendectomy, Bilateral Carpal Tunnel Surgery, Bilateral Eye Surgery, cardiac stents, Cataract extraction and insertion of intraocular lens, Colonoscopy, Procedure on back. Discharge Vitals Temperature (Axillary) 36.7 ?C Heart Rate (Monitored) 70 Blood Pressure 101/63 Weight 89.3 kg What to do next Instructions From Your Doctor Event Name Event Result Pending Diagnostic Test Results None Discharge Instructions Please return to ER if symptoms change or worsen. Please follow-up with Dr. Montes as instructed New Follow Up Appointments after Discharge Follow Up with JENARO LYNCH DO, FAM When: Where: [address] [place] [address]- Follow Up with Simon HERRERA, [facility] When: Within 2 weeks Comments: Call for followup appointment Where: [address] [place] [phone]- Medications What How Much When Instructions Next Dose New Ensure 237 Milliliter By Mouth Twice a day (with meals) Today at 5:00 PM New insulin glargine (insulin glargine 100 units/ mL SubQ Malaika 10 mL) 35 Units Subcutaneous At bedtime may need to decrease once pt continues with trulicity Tonight at bedtime New insulin lispro 0-10 Unit(s) Subcutaneous Four times a day (before meals and at bedtime) With meals New Tenzin (Tenzin packet) By Mouth 2 times a day Tonight at 9:00 PM New nicotine (nicotine 14 mg/ 24 hr Transderm ER Film) Transdermal Every day 02/22/2024 New oxycodone (oxyCODONE 5 mg Tab) 2 Tablets By Mouth Every 6 hours as needed for Pain Printed Prescription As needed after 6:00 PM New polyethylene glycol 3350 (polyethylene glycol 3350 17 gram packet) 1 Each By Mouth Every day 02/22/2024 New senna (senna 8.6 mg Tab) 1 Tablets By Mouth 2 times a day Tonight at 9:00 PM Changed amitriptyline (amitriptyline 100 mg oral tablet) 1 Tablets By Mouth Once a day (at bedtime) Tonight at bedtime Changed aspirin (aspirin 81 mg Oral EC Tab) 1 Tablets By Mouth Every day 02/22/2024 Changed dulaglutide (Trulicity Pen 0.75 mg/ 0.5 mL subcutaneous solution) 0.75 Milligram Subcutaneous Every week Resume weekly Changed hydrochlorothiazide-valsa rtan (hydrochlorothiazide-vals jorge 12.5 mg-160 mg Tab) 1 Tablets By Mouth Every day Resume 02/22/2024 Changed isosorbide mononitrate (isosorbide mononitrate 30 mg ER Tab) 1 Tablets By Mouth Once a day (in the morning) 02/22/2024 Changed metformin (metformin 1000 mg Tab) 1 Tablets By Mouth 2 times a day Resume tonight at 9:00 PM Changed metoprolol (metoprolol tartrate 100 mg Tab) 0.5 Tablets (more content not included)... Normal [facility] Inpatient Clinical Summaryon 02-21-2024 Inpatient Clinical Summary Inpatient Clinical Summary [place] [address] Clinical Summary Person Information: Name: SOLOMON PICKARD SR Age: 58 Years : 1965 Sex: Male PCP: JENARO LYNCH DO Marital Status: Race: White Ethnicity: Non- or Language: Dominican Visit Id: Visit Reason: I70.261 Speciality: Acuity: Enc Type: Inpatient Med Service: Medical Arrival: 02/12/2024 11:13:26 Discharge: Dispo Type: Address: [address] [place] [address] [address] [facility] [id number] Provider Notes: Diagnosis: 1:Hx of right BKA; 2:Leukocytosis; 3:Essential hypertension; 4:Hyperlipidemia; 5:Anemia; 6: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; 7:Stage 3 chronic kidney disease; 8:Coronary artery disease; 9:Tobacco abuse Problems Active Gross hematuria Orchitis BPH with obstruction/lower urinary tract symptoms Urinary retention Heart murmur Heart disease Heart attack Head ache COPD type A Asthma Smoker Hyperlipidemia Restless leg Arthritis Fibromyalgia Smoking Status: Current Every Day Smoker Functional Status: Sensory Deficits: History of Falls: Mobility Assistance Prior to Admission: ADLs: Minimal assistance Current Level of Assistance for Self-Care/Mobility: Cognitive Status: Allergies penicillin G benzathine Latex (Rash) (Itching) penicillins (Anaphylactoid reaction) Measurements: Height: 179.4 cm Weight: 89.3 kg Blood Pressure: 101 mmHg / 63 mmHg BMI: Procedures BKA - Below knee amputation (02/12/2024) Immunizations No Immunizations Documented This Visit Final Med List: albuterol (ProAir HFA) Inhalation every 6 hours as needed Shortness of breath or wheezing. amitriptyline (amitriptyline 100 mg oral tablet) 1 Tablets By Mouth once a day (at bedtime). aspirin (aspirin 81 mg Oral EC Tab) 1 Tablets By Mouth every day. atorvastatin (Lipitor 80 mg Tab) 1 Tablets By Mouth every day. clopidogrel (Plavix 75 mg Tab) 1 Tablets By Mouth every day. dulaglutide (Trulicity Pen 0.75 mg/0.5 mL subcutaneous solution) 0.75 Milligram Subcutaneous every week. empagliflozin (Jardiance 10 mg oral tablet) 1 Tablets By Mouth once a day (in the morning). Ensure 237 Milliliter By Mouth twice a day (with meals). furosemide (furosemide 40 mg Tab) 1 Tablets By Mouth every day. glimepiride (Amaryl 2 mg Tab) 1 Tablets By Mouth 2 times a day. hydrochlorothiazide-valsa rtan (hydrochlorothiazide-vals jorge 12.5 mg-160 mg Tab) 1 Tablets By Mouth every day. insulin glargine (insulin glargine 100 units/mL SubQ Malaika 10 mL) 35 Units Subcutaneous at bedtime. insulin lispro 0-10 Unit(s) Subcutaneous four times a day (before meals and at bedtime). isosorbide mononitrate (isosorbide mononitrate 30 mg ER Tab) 1 Tablets By Mouth once a day (in the morning). Tenzin (Tenzin packet) By Mouth 2 times a day. metformin (metformin 1000 mg Tab) 1 Tablets By Mouth 2 times a day. metoprolol (metoprolol tartrate 100 mg Tab) 0.5 Tablets By Mouth 2 times a day. nicotine (nicotine 14 mg/24 hr Transderm ER Film) Transdermal every day. nitroglycerin (NitroStat 0.4 mg Tab) 1 Tablets Sublingual every 5 minutes as needed for chest pain. omeprazole (omeprazole 40 mg Cap-DR) 1 Capsules By Mouth every day. oxycodone (oxyCODONE 5 mg Tab) 2 Tablets By Mouth every 6 hours as needed Pain. Refills: 0. polyethylene glycol 3350 (polyethylene glycol 3350 17 gram packet) 1 Each By Mouth every day. pregabalin (pregabalin 200 mg Cap) 1 Capsules By Mouth 3 times a day. rimegepant (Nurtec ODT 75 mg oral tablet, disintegrating) 1 Tablets By Mouth every 24 hours as needed Migraine headache. ropinirole (ropinirole 1 mg Tab) 1 Tablets By Mouth 3 times a day. senna (senna 8.6 mg Tab) 1 Tablets By Mouth 2 times a day. sitagliptin (Januvia 100 mg Tab) 1 Tablets By Mouth every day. tamsulosin (tamsulosin 0.4 mg Cap) 1 Capsules By Mouth 2 times a day. Refills: 11. tiotropium (Spiriva 18 mcg Cap) 1 Capsules Inhalation every day. Using only ONE capsule, have the patient inhale twice. Care Team Members: Attending Physician: Raulito Gilliland DO Consulting Physician: Padmini Montes MD Referring Physician: Padmini Montes MD Follow up: With: Address: When: JENARO LYNCH DO[address] [address] With: Address: When: Padmini Montes MD [address] [place] [id number] Within 2 weeks Comments: Call for followup appointment Patient Education Information: Living With an Amputation Normal 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; 7:Stage 3 chronic kidney disease; 8:Coronary artery disease; 9:Tobacco abuse Condition at Discharge: Improved SOLOMON PICKARD SR has been given the following list of follow-up instructions, prescriptions, and patient education materials: PATIENT FOLLOW-UP INFORMATION Diet: Discharge Activity: Discharge Restrictions: Wound Care Instructions: Remove Your Dressing In Days Call Your Doctor For: IF UNABLE TO CONTACT YOUR PHYSICIAN AND YOU FEEL IT IS AN EMERGENCY, GO TO THE NEAREST EMERGENCY ROOM OR CALL 911 Home Treatment: Devices/Equipment: None Special Services: Additional Instructions: Please return to ER if symptoms change or worsen. Please follow-up with Dr. Montes as instructed Primary Care Physician to provide the following pending test results: None Follow up: With: Address: When: JENARO LYNCH DO, [address] [address] With: Address: When: Padmini Montes MD [address] [place] [address] Within 2 weeks Comments: Call for followup appointment In the event that this physician does not participate in your insurance network, please consult with your insurance company to find a nearby participating provider. Comment: IGASTON SR, SCOTT A, have received the attached patient education materials/instructions and have verbalized understanding: Patient Signature ____ Date Clinican/Nurse Signature Date HERE ARE THE MEDICATION CHANGES THAT OCCURRED DURING YOUR HOSPITAL STAY New Medications Printed Prescriptions oxycodone (oxyCODONE 5 mg Tab) 2 Tablets By Mouth every 6 hours as needed Pain. Refills: 0. Last Dose: Next Dose: Other Medications Ensure 237 Milliliter By Mouth twice a day (with meals). Last Dose: Next Dose: insulin glargine (insulin glargine 100 units/mL SubQ Malaika 10 mL) 35 Units Subcutaneous at bedtime. Patient instructions: may need to decrease once pt continues with trulicity Last Dose: Next Dose: insulin lispro 0-10 Unit(s) Subcutaneous four times a day (before meals and at bedtime). Last Dose: Next Dose: Tenzin (Tenzin packet) By Mouth 2 times a day. Last Dose: Next Dose: nicotine (nicotine 14 mg/24 hr Transderm ER Film) Transdermal every day. Last Dose: Next Dose: polyethylene glycol 3350 (polyethylene glycol 3350 17 gram packet) 1 Each By Mouth every day. Last Dose: Next Dose: senna (senna 8.6 mg Tab) 1 Tablets By Mouth 2 times a day. Last Dose: Next Dose: Medications to Continue Taking That Have Changed Other Medications START: amitriptyline (amitriptyline 100 mg oral tablet) 1 Tablets By Mouth once a day (at bedtime). Last Dose: Next Dose: STOP: amitriptyline (amitriptyline 100 mg oral tablet) By Mouth once a day (at bedtime). START: aspirin (aspirin 81 mg Oral EC Tab) 1 Tablets By Mouth every day. Last Dose: Next Dose: STOP: aspirin (Aspirin 81 mg Tab-EC) START: dulaglutide (Trulicity Pen 0.75 mg/0.5 mL subcutaneous solution) 0.75 Milligram Subcutaneous every week. Last Dose: Next Dose: STOP: dulaglutide (Trulicity Pen 1.5 mg/0.5 mL subcutaneous solution) START: hydrochlorothiazide-valsa rtan (hydrochlorothiazide-vals jorge 12.5 mg-160 mg Tab) 1 Tablets By Mouth every day. Last Dose: Next Dose: STOP: hydrochlorothiazide-valsa rtan (hydrochlorothiazide-vals jorge 12.5 mg-160 mg Tab) By Mouth every day. START: isosorbide mononitrate (isosorbide mononitrate 30 mg ER Tab) 1 Tablets By Mouth once a day (in the morning). Last Dose: Next Dose: START: metformin (metformin 1000 mg Tab) 1 Tablets By Mouth 2 times a day. Last Dose: Next Dose: STOP: metformin 1,000 Milligram By Mouth 2 times a day. START: metoprolol (metoprolol tartrate 100 mg Tab) 0.5 Tablets By M (more content not included)... Normal [facility] Interdisciplinary Note - Jorge e Manageron 02-21-2024 Interdisciplinary Note - Thermostat Mechanic Interdisciplinary Note - Thermostat Mechanic Precert for [employer] has been obtained. Patient informed and his was also contacted. Both remain in agreement with the discharge plan. Patient's will arrive to [facility] [place] [place] by 1700 this evening and will transport patient to [facility] once he has finished his dinner. Hospitalist, RN, and CRM aware. [facility] Comment on above: Result Comment: Elec tronically Signed By: Evens SÁNCHEZ, Fely Martin\.br\Date and Time Signed: 02/21/24 18:08 EDT Interdisciplinary Note - Soc ial Workeron 02-21-2024 Interdisciplinary Note - Waterworks Employee Interdisciplinary Note - Waterworks Employee Precert for [employer] has been obtained. Patient informed and his was also contacted. Both remain in agreement with the discharge plan. Patient's will arrive to [facility] [place] [place] by 1700 this evening and will transport patient to [facility] once he has finished his dinner. Hospitalist, RN, and CRM aware. Normal [facility] Interdisciplinary Note - Waterworks Employee Interdisciplinary Note - Waterworks Employee Precert for [employer] has been obtained. Patient informed and his was also contacted. Both remain in agreement with the discharge plan. Patient's will arrive to [facility] [place] by 1700 this evening and will transport patient to [facility] once he has finished his dinner. Hospitalist, RN, and CRM aware. [facility] eGFRon 02-21-2024 eGFR 43 mL/min/1.73 m2 Low >=59 [facility] Comment on above: Order Comment: Order added by Discern Expert. Performed By: #### 1 [id number] #### [facility] [address] [place] [address] BMPon 02-20-2024 Anion gap [Moles/Vol] 15 mmol/L Normal 6-16 [facility] Comment on above: Performed By: #### 2 [id number] #### [facility] [address] [place] [address] Calcium [Mass/Vol] 9.4 mg/dL Normal 8.9-11.1 [facility] Comment on above: Performed By: #### 2 [id number] #### [facility] [address] [place] [address] Chloride [Moles/Vol] 97 mmol/L Low 101-111 [facility] Comment on above: Performed By: #### 2 [id number] #### [facility] [address] [place] [address] CO2 [Moles/Vol] 28 mmol/L Normal 21-31 [facility] Comment on above: Performed By: #### 2 [id number] #### [facility] [address] [place] [address] Creatinine [Mass/Vol] 1.8 mg/dL High 0.5-1.3 [facility] Comment on above: Performed By: #### 2 [id number] #### [facility] [address] [place] [address] Glucose [Mass/Vol] 259 mg/dL High 55-199 [facility] Comment on above: Performed By: #### 2 [id number] #### [facility] [address] [place] [address] Potassium [Moles/Vol] 3.9 mmol/L Normal 3.5-5.3 [facility] Comment on above: Performed By: #### 2 [id number] #### [facility] [address] [place] [address] Sodium [Moles/Vol] 136 mmol/L Normal 135-145 [facility] Comment on above: Performed By: #### 2 [id number] #### [facility] [address] [place] [address] Urea nitrogen [Mass/Vol] 27 mg/dL High 5-21 [facility] Comment on above: Performed By: #### 2 [id number] #### [facility] [address] [place] [address] Urea nitrogen/Creatinine [Mass ratio] 15 No Units Normal 10-20 [facility] Comment on above: Performed By: #### 2 [id number] #### [facility] [address] [place] [address] CBC w/ Auto Diffon 4 Basophils/100 WBC (Bld) 0.7 % Normal 0.0-2.0 [facility] Comment on above: Performed By: #### 2 [id number] #### [facility] [address] [place] [address] Basophils/Leukocytes Auto (Bld) [Pure # fraction] 0.1 E9/L Normal 0.0-0.2 [facility] Comment on above: Performed By: #### 2 [id number] #### [facility] [address] [place] [address] Eosinophils (Bld) [#/Vol] 0.2 E9/L Normal 0.0-0.5 [facility] Comment on above: Performed By: #### 2 [id number] #### [facility] [address] [place] [address] Eosinophils/100 WBC (Bld) 1.6 % Normal 0.0-8.0 [facility] Comment on above: Performed By: #### 2 [id number] #### [facility] [address] [place] [address] Erythrocyte distribution width (RBC) [Ratio] 21.6 % High 10.9-14.2 [facility] Comment on above: Performed By: #### 2 [id number] #### [facility] [address] [place] [address] Hematocrit (Bld) [Volume fraction] 27.5 % Low 37.7-49.0 [facility] Comment on above: Performed By: #### 2 [id number] #### [facility] [address] [place] [address] Hemoglobin (Bld) [Mass/Vol] 8.9 g/dL Low 13.5-17.5 [facility] Comment on above: Performed By: #### 2 [id number] #### [facility] [address] [place] [address] Hypochromia Auto Ql (Bld) PRESENT Invalid Interpretation Code [facility] Comment on above: Performed By: #### 2 [id number] #### [facility] [address] [place] [address] Lymphocytes (Bld) [#/Vol] 1.3 E9/L Normal 1.0-4.0 [facility] Comment on above: Performed By: #### 2 [id number] #### [facility] [address] [place] [address] Lymphocytes/100 WBC (Bld) 8.3 % Low 14.0-50.0 [facility] Comment on above: Performed By: #### 2 [id number] #### [facility] [address] [place] [address] MCH (RBC) [Entitic mass] 22.9 pg Low 27.0-34.0 [facility] Comment on above: Performed By: #### 2 [id number] #### [facility] [address] [place] [address] MCHC (RBC) [Mass/Vol] 32.2 g/dL Normal 31.4-36.0 [facility] Comment on above: Performed By: #### 2 [id number] #### [facility] [address] [place] [address] MCV (RBC) [Entitic vol] 70.9 fL Low 80.0-100.0 [facility] Comment on above: Performed By: #### 2 [id number] #### [facility] [address] [place] [address] Microcytes Ql (Bld) PRESENT Invalid Interpretation Code [facility] Comment on above: Performed By: #### 2 [id number] #### [facility] [address] [place] [address] Monocytes (Bld) [#/Vol] 1.2 E9/L High 0.2-1.0 [facility] Comment on above: Performed By: #### 2 [id number] #### [facility] [address] [place] [address] Neutrophils (Bld) [#/Vol] 12.7 E9/L High 2.0-7.5 [facility] Comment on above: Performed By: #### 2 [id number] #### [facility] [address] [place] [address] Neutrophils/100 WBC (Bld) 81.5 % High 36.0-75.0 [facility] Comment on above: Performed By: #### 2 [id number] #### [facility] [address] [place] [address] Platelet 521.0 E9/L High 150.0-500. 0 [facility] Comment on above: Performed By: #### 2 [id number] #### [facility] [address] [place] [address] Platelet mean volume (Bld) [Entitic vol] 8.6 fL Normal 6.4-10.8 [facility] Comment on above: Performed By: #### 2 [id number] #### [facility] [address] [place] [address] RBC (Bld) [#/Vol] 3.9 E12/L Low 4.3-5.9 [facility] Comment on above: Performed By: #### 2 [id number] #### [facility] [address] [place] [address] RBC size Nom (Bld) SEE MORPHOLOGY Invalid Interpretation Code [facility] Comment on above: Performed By: #### 2 [id number] #### [facility] [address] [place] [address] WBC corrected for nucl RBC Auto (Bld) [#/Vol] 15.6 E9/L High 4.0-11.0 [facility] Comment on above: Performed By: #### 2 [id number] #### [facility] [address] [place] [address] Capillary Glucose POCon 02-03 Glucose [Mass/Vol] 192 mg/dL High 55-99 [facility] Comment on above: Result Comment: Deon ETIENNE Performed By: #### 2 [id number] #### [facility] [address] [place] [address] Glucose [Mass/Vol] 180 mg/dL High 55-99 [facility] Comment on above: Result Comment: Deon ETIENNE Performed By: #### 2 [id number] #### [facility] [address] [place] [address] Glucose [Mass/Vol] 104 mg/dL High 55-99 [facility] Comment on above: Result Comment: Deon ETIENNE Performed By: #### 2 [id number] #### [facility] [address] [place] [address] Glucose [Mass/Vol] 165 mg/dL High 55-99 [facility] Comment on above: Result Comment: Deon ETIENNE Performed By: #### 2 [id number] #### [facility] [address] [place] [address] Glucose [Mass/Vol] 224 mg/dL High 55-99 [facility] Comment on above: Result Comment: Deon ETIENNE Performed By: #### 2 [id number] #### [facility] [address] [place] [address] Coding Queryon 02-20-2024 Coding Query Coding Query From: Rachelle Diaz RN To: Ben Corrigan III, DO; Sent: 02/20/2024 14:33:58 EDT ! Subject: Coding Query Due Date/Time: 02/21/2024 14:33:00 EDT Caller Name: SOLOMON PICKARD SR; Caller Number: H Documentation in the medical record indicates this patient has been admitted with or diagnosed as having: acute blood loss anemia The following is also documented in the medical record: 02/16 Progress note: 4. Anemia Acute Blood loss anemia, possibly post surgical loss hgb has remained stable post transfusion continue to monitor CBC today Throughout the course of the admission, documentation of this diagnosis has discontinued. Based on your medical judgment, please clarify the diagnosis and document any applicable treatment plan. The diagnosis: [___]Is a current diagnosis [___]Has been ruled out [___]Has been resolved [___]Other: In responding to this request, please exercise your independent professional judgement. The fact that a question is asked does not imply that any particular answer is desired or expected. Thank you!rachelle [phone] Normal [facility] Interdisciplinary Note - Jorge e Manageron 02-20-2024 Interdisciplinary Note - Thermostat Mechanic Interdisciplinary Note - Thermostat Mechanic This SW rounded with patient this morning. He is aware that precert is still pending for [facility] and SW will update him as soon as determination is received. SW will also update his . Call placed to patient's this afternoon and a message was left letting her know that the precert remains pending at this time. Normal [facility] Comment on above: Result Comment: Elec tronically Signed By: Fely Narvaez.br\Date and Time Signed: 02/20/24 15:25 EDT Interdisciplinary Note - Thermostat Mechanic Interdisciplinary Note - Thermostat Mechanic This SW rounded with patient this morning. He is aware that precert is still pending for [facility] and SW will update him as soon as determination is received. SW will also update his . Normal [facility] Comment on above: Result Comment: Elec tronically Signed By: Fely Narvaez.br\Date and Time Signed: 02/20/24 13:55 EDT eGFRon 02-20-2024 eGFR 43 mL/min/1.73 m2 Low >=59 [facility] Comment on above: Order Comment: Order added by Discern Expert. Performed By: #### 1 [id number] #### [facility] [address] [place] [address] BMPon 02-19-2024 Anion gap [Moles/Vol] 12 mmol/L Normal 6-16 [facility] Comment on above: Performed By: #### 2 [id number] #### [facility] [address] [place] [address] Calcium [Mass/Vol] 8.9 mg/dL Normal 8.9-11.1 [facility] Comment on above: Performed By: #### 2 [id number] #### [facility] [address] [place] [address] Chloride [Moles/Vol] 100 mmol/L Low 101-111 [facility] Comment on above: Performed By: #### 2 [id number] #### [facility] [address] [place] [address] CO2 [Moles/Vol] 28 mmol/L Normal 21-31 [facility] Comment on above: Performed By: #### 2 [id number] #### [facility] [address] [place] [address] Creatinine [Mass/Vol] 1.7 mg/dL High 0.5-1.3 [facility] Comment on above: Performed By: #### 2 [id number] #### [facility] [address] [place] [address] Glucose [Mass/Vol] 235 mg/dL High 55-199 [facility] Comment on above: Performed By: #### 2 [id number] #### [facility] [address] [place] [address] Potassium [Moles/Vol] 4.1 mmol/L Normal 3.5-5.3 [facility] Comment on above: Performed By: #### 2 [id number] #### [facility] [address] [place] [address] Sodium [Moles/Vol] 136 mmol/L Normal 135-145 [facility] Comment on above: Performed By: #### 2 [id number] #### [facility] [address] [place] [address] Urea nitrogen [Mass/Vol] 25 mg/dL High 5-21 [facility] Comment on above: Performed By: #### 2 [id number] #### [facility] [address] [place] [address] Urea nitrogen/Creatinine [Mass ratio] 15 No Units Normal 10-20 [facility] Comment on above: Performed By: #### 2 [id number] #### [facility] [address] [place] [address] CBC w/ Auto Diffon 4 Basophils/100 WBC (Bld) 1.6 % Normal 0.0-2.0 [facility] Comment on above: Performed By: #### 2 [id number] #### [facility] [address] [place] [address] Basophils/Leukocytes Auto (Bld) [Pure # fraction] 0.2 E9/L Normal 0.0-0.2 [facility] Comment on above: Performed By: #### 2 [id number] #### [facility] [address] [place] [address] Eosinophils (Bld) [#/Vol] 0.5 E9/L Normal 0.0-0.5 [facility] Comment on above: Performed By: #### 2 [id number] #### [facility] [address] [place] [address] Eosinophils/100 WBC (Bld) 5.1 % Normal 0.0-8.0 [facility] Comment on above: Performed By: #### 2 [id number] #### [facility] [address] [place] [address] Erythrocyte distribution width (RBC) [Ratio] 21.6 % High 10.9-14.2 [facility] Comment on above: Performed By: #### 2 [id number] #### [facility] [address] [place] [address] Hematocrit (Bld) [Volume fraction] 24.4 % Low 37.7-49.0 [facility] Comment on above: Performed By: #### 2 [id number] #### [facility] [address] [place] [address] Hemoglobin (Bld) [Mass/Vol] 7.9 g/dL Low 13.5-17.5 [facility] Comment on above: Performed By: #### 2 [id number] #### [facility] [address] [place] [address] Hypochromia Auto Ql (Bld) PRESENT Invalid Interpretation Code [facility] Comment on above: Performed By: #### 2 [id number] #### [facility] [address] [place] [address] Lymphocytes (Bld) [#/Vol] 1.9 E9/L Normal 1.0-4.0 [facility] Comment on above: Performed By: #### 2 [id number] #### [facility] [address] [place] [address] Lymphocytes/100 WBC (Bld) 18.4 % Normal 14.0-50.0 [facility] Comment on above: Performed By: #### 2 [id number] #### [facility] [address] [place] [address] MCH (RBC) [Entitic mass] 22.8 pg Low 27.0-34.0 [facility] Comment on above: Performed By: #### 2 [id number] #### [facility] [address] [place] [address] MCHC (RBC) [Mass/Vol] 32.3 g/dL Normal 31.4-36.0 [facility] Comment on above: Performed By: #### 2 [id number] #### [facility] [address] [place] [address] MCV (RBC) [Entitic vol] 70.4 fL Low 80.0-100.0 [facility] Comment on above: Performed By: #### 2 [id number] #### [facility] [address] [place] [address] Monocytes (Bld) [#/Vol] 1.0 E9/L Normal 0.2-1.0 [facility] Comment on above: Performed By: #### 2 [id number] #### [facility] [address] [place] [address] Neutrophils (Bld) [#/Vol] 6.7 E9/L Normal 2.0-7.5 [facility] Comment on above: Performed By: #### 2 [id number] #### [facility] [address] [place] [address] Neutrophils/100 WBC (Bld) 65.1 % Normal 36.0-75.0 [facility] Comment on above: Performed By: #### 2 [id number] #### [facility] [address] [place] [address] Platelet 444.0 E9/L Normal 150.0-500. 0 [facility] Comment on above: Performed By: #### 2 [id number] #### [facility] [address] [place] [address] Platelet mean volume (Bld) [Entitic vol] 8.1 fL Normal 6.4-10.8 [facility] Comment on above: Performed By: #### 2 [id number] #### [facility] [address] [place] [address] RBC (Bld) [#/Vol] 3.5 E12/L Low 4.3-5.9 [facility] Comment on above: Performed By: #### 2 [id number] #### [facility] [address] [place] [address] RBC size Nom (Bld) SEE MORPHOLOGY Invalid Interpretation Code [facility] Comment on above: Performed By: #### 2 [id number] #### [facility] [address] [place] [address] WBC corrected for nucl RBC Auto (Bld) [#/Vol] 10.3 E9/L Normal 4.0-11.0 [facility] Comment on above: Performed By: #### 2 [id number] #### [facility] [address] [place] [address] Capillary Glucose POCon 09-1 6-2024 Glucose [Mass/Vol] 250 mg/dL High 55-99 [facility] Comment on above: Result Comment: Deon hathaway RN/ Performed By: #### 2 [id number] #### [facility] [address] [place] [address] Glucose [Mass/Vol] 272 mg/dL High 55-99 [facility] Comment on above: Result Comment: Deon hathaway RN/ Performed By: #### 2 [id number] #### [facility] [address] [place] [address] Glucose [Mass/Vol] 277 mg/dL High 55-99 [facility] Comment on above: Result Comment: Deon hathaway RN/ Performed By: #### 2 [id number] #### [facility] [address] [place] [address] Glucose [Mass/Vol] 217 mg/dL High 55-99 [facility] Comment on above: Result Comment: Deon hathaway RN/ Performed By: #### 2 [id number] #### [facility] [address] [place] [address] Interdisciplinary Note - Jorge e Manageron 02-19-2024 Interdisciplinary Note - Thermostat Mechanic Interdisciplinary Note - Thermostat Mechanic This SW met with patient today to discuss discharge plans. Plan remains for patient to go to [facility] in [place] once precert is obtained. All updates have been sent to [facility] for the precert, which was submitted on Monday. Patient requested that SW contact his once precert is obtained, or before the end of the day if not obtained today. This SW made a tc to patient's and let her know that precert is still pending. She voiced understanding. Normal [facility] Comment on above: Result Comment: Elec tronically Signed By: Evens SÁNCHEZ, Fely Martin\.livia\Date and Time Signed: 02/19/24 15:59 EDT Interdisciplinary Note - Thermostat Mechanic Interdisciplinary Note - Thermostat Mechanic This SW met with patient today to discuss discharge plans. Plan remains for patient to go to [facility] in [place] once precert is obtained. All updates have been sent to [facility] for the precert, which was submitted on Monday. Patient requested that SW contact his once precert is obtained, or before the end of the day if not obtained today. Normal [facility] Comment on above: Result Comment: Elec tronically Signed By: Fely Narvaez\.br\Date and Time Signed: 02/19/24 10:44 EDT Operative Reporton Operative Report Operative Report SURGERY DATE: 02/12/2024 PREOPERATIVE DIAGNOSIS: Right forefoot gangrene POSTOPERATIVE DIAGNOSIS: Right forefoot gangrene OPERATION: Right below-knee amputation ANESTHESIA: General anesthesia INDICATIONS: This is a 58-year-old gentleman, a diabetic with forefoot gangrene status post transmetatarsal amputation and nonhealing. We discussed different options and it was elected to proceed with below-knee amputation. Informed consent was obtained. PROCEDURE: The patient was taken back to the Operating Room and placed in supine position. Appropriate cardiopulmonary monitors were set. Anesthesia was induced. The right leg was prepped and draped in the usual sterile surgical fashion. He had received antibiotics. After time-out and safety pause, a fishmouth incision configuration was created about 8 to 10 cm from the tibial tubercle. Skin and subcutaneous tissue and fascia were transected and dissected using electrocautery Bovie. We had a tourniquet up. The muscles were cut using Bovie and ligature. All the named vessels and potential bleeders were ligated using 2-0 Prolene sutures. Hemostasis was achieved. Then the bone was cut in the upper tibia and fibula using a bone saw. Hemostasis was achieved and the tourniquet was taken down and made sure there was no bleeding. Then the fascia was closed using interrupted 2-0 Vicryl and 0 Vicryl sutures, and the skin was stapled. The patient tolerated the procedure very well. No complications. All counts were correct. Sully Valdez Dictated: 02/12/2024 [id number] Transcribed: 02/13/2024 [facility] Comment on above: Result Comment: Elec tronically Signed By: Padmini Montes MD\.livia\Date and Time Signed: 02/19/24 09:51 EDT Operative Report Operative Report Patient: SOLOMON PICKARD SR Age: 58 years Sex: Male : 1965 Associated Diagnoses: None Author: MD Solomon Ahmad F Postoperative Information Date/ Time: 02/12/2024 15:00:00 Preoperative Diagnosis: Acute postoperative pain., Per surgeon request for post-op pain management. Postoperative Diagnosis: Acute postoperative pain, Per surgeon request for post-op pain management. Procedure: Femoral-Popliteal nerve block. Anesthesia Method: Local, Monitored anesthesia care. Performed by: MD Solomon Ahmad F. Medications Complications: None. Notes: The patient was interviewed and examined prior to the planned operation. Anesthesia options were discussed including femoral and popliteal nerve blocks for postoperative analgesia. This discussion included a description of the procedure, risks and benefits, as well as alternatives to the block. The patient's questions were addressed and the patient elected to proceed with the nerve blocks. After a timeout, the patient was placed in the supine position for the femoral block and prone for the popliteal block and monitored with continuous pulse oximetry, non-invasive blood pressure, and electrocardiography. The upper anterior thigh and posterior thigh were prepped with ChloraPrep and sterilely draped. Anatomical landmarks were identified with ultrasonographic guidance. A 2 x 22 gauge Stimuplex needle was inserted without pain or paresthesias. Loss of twitch was observed at _0.4_ mA. Following a negative attempted aspiration for blood, Ropivacaine 0.5% was slowly injected with a total volume of _30_ cc, at 5cc intervals, divided between the femoral and popliteal blocks. Periodic negative attempts at aspiration for blood were made at every 5cc interval as the local was injected. No pain or paresthesias were elicited with injection of the anesthetic. The patient tolerated the procedure well without complications.. Normal [facility] Comment on above: Result Comment: Elec tronically Signed By: MD Solomon Ahmad F\.br\Date and Time Signed: 02/19/24 08:36 EDT eGFRon 02-19-2024 eGFR 46 mL/min/1.73 m2 Low >=59 [facility] Comment on above: Order Comment: Order added by Discern Expert. Performed By: #### 1 [id number] #### [facility] [address] [place] [address] Capillary Glucose POCon 02-03 Glucose [Mass/Vol] 348 mg/dL High 55-99 [facility] Comment on above: Result Comment: Deon ETIENNE Performed By: #### 2 [id number] #### [facility] [address] [place] [address] Glucose [Mass/Vol] 323 mg/dL High 55-99 [facility] Comment on above: Result Comment: Deon ETIENNE Performed By: #### 2 [id number] #### [facility] [address] [place] [address] Glucose [Mass/Vol] 323 mg/dL High 55-99 [facility] Comment on above: Result Comment: Deon ETIENNE Performed By: #### 2 [id number] #### [facility] [address] [place] [address] Glucose [Mass/Vol] 210 mg/dL High 55-99 [facility] Comment on above: Result Comment: Deon ETIENNE Performed By: #### 2 [id number] #### [facility] [address] [place] [address] BMPon 02-17-2024 Anion gap [Moles/Vol] 13 mmol/L Normal 6-16 [facility] Comment on above: Performed By: #### 2 [id number] #### [facility] [address] [place] [address] Calcium [Mass/Vol] 9.3 mg/dL Normal 8.9-11.1 [facility] Comment on above: Performed By: #### 2 [id number] #### [facility] [address] [place] [address] Chloride [Moles/Vol] 98 mmol/L Low 101-111 [facility] Comment on above: Performed By: #### 2 [id number] #### [facility] [address] [place] [address] CO2 [Moles/Vol] 28 mmol/L Normal 21-31 [facility] Comment on above: Performed By: #### 2 [id number] #### [facility] [address] [place] [address] Creatinine [Mass/Vol] 1.8 mg/dL High 0.5-1.3 [facility] Comment on above: Performed By: #### 2 [id number] #### [facility] [address] [place] [address] Glucose [Mass/Vol] 374 mg/dL High 55-199 [facility] Comment on above: Performed By: #### 2 [id number] #### [facility] [address] [place] [address] Potassium [Moles/Vol] 4.6 mmol/L Normal 3.5-5.3 [facility] Comment on above: Performed By: #### 2 [id number] #### [facility] [address] [place] [address] Sodium [Moles/Vol] 134 mmol/L Low 135-145 [facility] Comment on above: Performed By: #### 2 [id number] #### [facility] [address] [place] [address] Urea nitrogen [Mass/Vol] 25 mg/dL High 5-21 [facility] Comment on above: Performed By: #### 2 [id number] #### [facility] [address] [place] [address] Urea nitrogen/Creatinine [Mass ratio] 14 No Units Normal 10-20 [facility] Comment on above: Performed By: #### 2 [id number] #### [facility] [address] [place] [address] CBC w/ Auto Diffon 4 Basophils/100 WBC (Bld) 1.0 % Normal 0.0-2.0 [facility] Comment on above: Performed By: #### 2 [id number] #### [facility] [address] [place] [address] Basophils/Leukocytes Auto (Bld) [Pure # fraction] 0.1 E9/L Normal 0.0-0.2 [facility] Comment on above: Performed By: #### 2 [id number] #### [facility] [address] [place] [address] Eosinophils (Bld) [#/Vol] 0.5 E9/L Normal 0.0-0.5 [facility] Comment on above: Performed By: #### 2 [id number] #### [facility] [address] [place] [address] Eosinophils/100 WBC (Bld) 5.0 % Normal 0.0-8.0 [facility] Comment on above: Performed By: #### 2 [id number] #### [facility] [address] [place] [address] Erythrocyte distribution width (RBC) [Ratio] 21.6 % High 10.9-14.2 [facility] Comment on above: Performed By: #### 2 [id number] #### [facility] [address] [place] [address] Hematocrit (Bld) [Volume fraction] 24.8 % Low 37.7-49.0 [facility] Comment on above: Performed By: #### 2 [id number] #### [facility] [address] [place] [address] Hemoglobin (Bld) [Mass/Vol] 8.5 g/dL Low 13.5-17.5 [facility] Comment on above: Performed By: #### 2 [id number] #### [facility] [address] [place] [address] Lymphocytes (Bld) [#/Vol] 1.6 E9/L Normal 1.0-4.0 [facility] Comment on above: Performed By: #### 2 [id number] #### [facility] [address] [place] [address] Lymphocytes/100 WBC (Bld) 15.2 % Normal 14.0-50.0 [facility] Comment on above: Performed By: #### 2 [id number] #### [facility] [address] [place] [address] MCH (RBC) [Entitic mass] 24.3 pg Low 27.0-34.0 [facility] Comment on above: Performed By: #### 2 [id number] #### [facility] [address] [place] [address] MCHC (RBC) [Mass/Vol] 34.2 g/dL Normal 31.4-36.0 [facility] Comment on above: Performed By: #### 2 [id number] #### [facility] [address] [place] [address] MCV (RBC) [Entitic vol] 70.9 fL Low 80.0-100.0 [facility] Comment on above: Performed By: #### 2 [id number] #### [facility] [address] [place] [address] Microcytes Ql (Bld) PRESENT Invalid Interpretation Code [facility] Comment on above: Performed By: #### 2 [id number] #### [facility] [address] [place] [address] Monocytes (Bld) [#/Vol] 1.1 E9/L High 0.2-1.0 [facility] Comment on above: Performed By: #### 2 [id number] #### [facility] [address] [place] [address] Neutrophils (Bld) [#/Vol] 7.1 E9/L Normal 2.0-7.5 [facility] Comment on above: Performed By: #### 2 [id number] #### [facility] [address] [place] [address] Neutrophils/100 WBC (Bld) 68.3 % Normal 36.0-75.0 [facility] Comment on above: Performed By: #### 2 [id number] #### [facility] [address] [place] [address] Platelet 395.0 E9/L Normal 150.0-500. 0 [facility] Comment on above: Performed By: #### 2 [id number] #### [facility] [address] [place] [address] Platelet mean volume (Bld) [Entitic vol] 8.2 fL Normal 6.4-10.8 [facility] Comment on above: Performed By: #### 2 [id number] #### [facility] [address] [place] [address] RBC (Bld) [#/Vol] 3.5 E12/L Low 4.3-5.9 [facility] Comment on above: Performed By: #### 2 [id number] #### [facility] [address] [place] [address] RBC size Nom (Bld) SEE MORPHOLOGY Invalid Interpretation Code [facility] Comment on above: Performed By: #### 2 [id number] #### [facility] [address] [place] [address] WBC corrected for nucl RBC Auto (Bld) [#/Vol] 10.4 E9/L Normal 4.0-11.0 [facility] Comment on above: Performed By: #### 2 [id number] #### [facility] [address] [place] [address] Capillary Glucose POCon 02-03 Glucose [Mass/Vol] 366 mg/dL High 55-99 [facility] Comment on above: Result Comment: Deon ETIENNE Performed By: #### 2 [id number] #### [facility] [address] [place] [address] Glucose [Mass/Vol] 314 mg/dL High 55-99 [facility] Comment on above: Result Comment: Deon ETIENNE Performed By: #### 2 [id number] #### [facility] [address] [place] [address] Glucose [Mass/Vol] 389 mg/dL High 55-99 [facility] Comment on above: Result Comment: Deon ETIENNE Performed By: #### 2 [id number] #### [facility] [address] [place] [address] Glucose [Mass/Vol] 298 mg/dL High 55-99 [facility] Comment on above: Result Comment: Deon hathaway RN/ Performed By: #### 2 [id number] #### [facility] [address] [place] [address] eGFRon 02-17-2024 eGFR 43 mL/min/1.73 m2 Low >=59 [facility] Comment on above: Order Comment: Order added by Discern Expert. Performed By: #### 1 [id number] #### [facility] [address] [place] [address] BMPon 02-16-2024 Anion gap [Moles/Vol] 12 mmol/L Normal 6-16 [facility] Comment on above: Performed By: #### 2 [id number] #### [facility] [address] [place] [address] Calcium [Mass/Vol] 8.5 mg/dL Low 8.9-11.1 [facility] Comment on above: Performed By: #### 2 [id number] #### [facility] [address] [place] [address] Chloride [Moles/Vol] 100 mmol/L Low 101-111 [facility] Comment on above: Performed By: #### 2 [id number] #### [facility] [address] [place] [address] CO2 [Moles/Vol] 27 mmol/L Normal 21-31 [facility] Comment on above: Performed By: #### 2 [id number] #### [facility] [address] [place] [address] Creatinine [Mass/Vol] 1.8 mg/dL High 0.5-1.3 [facility] Comment on above: Performed By: #### 2 [id number] #### [facility] [address] [place] [address] Glucose [Mass/Vol] 242 mg/dL High 55-199 [facility] Comment on above: Performed By: #### 2 [id number] #### [facility] [address] [place] [address] Potassium [Moles/Vol] 3.8 mmol/L Normal 3.5-5.3 [facility] Comment on above: Performed By: #### 2 [id number] #### [facility] [address] [place] [address] Sodium [Moles/Vol] 135 mmol/L Normal 135-145 [facility] Comment on above: Performed By: #### 2 [id number] #### [facility] [address] [place] [address] Urea nitrogen [Mass/Vol] 25 mg/dL High 5-21 [facility] Comment on above: Performed By: #### 2 [id number] #### [facility] [address] [place] [address] Urea nitrogen/Creatinine [Mass ratio] 14 No Units Normal 10-20 [facility] Comment on above: Performed By: #### 2 [id number] #### [facility] [address] [place] [address] CBC w/ Auto Diffon 4 Basophils/100 WBC (Bld) 0.7 % Normal 0.0-2.0 [facility] Comment on above: Performed By: #### 2 [id number] #### [facility] [address] [place] [address] Basophils/Leukocytes Auto (Bld) [Pure # fraction] 0.1 E9/L Normal 0.0-0.2 [facility] Comment on above: Performed By: #### 2 [id number] #### [facility] [address] [place] [address] Eosinophils (Bld) [#/Vol] 0.5 E9/L Normal 0.0-0.5 [facility] Comment on above: Performed By: #### 2 [id number] #### [facility] [address] [place] [address] Eosinophils/100 WBC (Bld) 4.2 % Normal 0.0-8.0 [facility] Comment on above: Performed By: #### 2 [id number] #### [facility] [address] [place] [address] Erythrocyte distribution width (RBC) [Ratio] 21.5 % High 10.9-14.2 [facility] Comment on above: Performed By: #### 2 [id number] #### [facility] [address] [place] [address] Hematocrit (Bld) [Volume fraction] 22.9 % Low 37.7-49.0 [facility] Comment on above: Performed By: #### 2 [id number] #### [facility] [address] [place] [address] Hemoglobin (Bld) [Mass/Vol] 7.6 g/dL Low 13.5-17.5 [facility] Comment on above: Performed By: #### 2 [id number] #### [facility] [address] [place] [address] Hypochromia Auto Ql (Bld) PRESENT Invalid Interpretation Code [facility] Comment on above: Performed By: #### 2 [id number] #### [facility] [address] [place] [address] Lymphocytes (Bld) [#/Vol] 1.4 E9/L Normal 1.0-4.0 [facility] Comment on above: Performed By: #### 2 [id number] #### [facility] [address] [place] [address] Lymphocytes/100 WBC (Bld) 12.7 % Low 14.0-50.0 [facility] Comment on above: Performed By: #### 2 [id number] #### [facility] [address] [place] [address] MCH (RBC) [Entitic mass] 23.4 pg Low 27.0-34.0 [facility] Comment on above: Performed By: #### 2 [id number] #### [facility] [address] [place] [address] MCHC (RBC) [Mass/Vol] 33.0 g/dL Normal 31.4-36.0 [facility] Comment on above: Performed By: #### 2 [id number] #### [facility] [address] [place] [address] MCV (RBC) [Entitic vol] 70.9 fL Low 80.0-100.0 [facility] Comment on above: Performed By: #### 2 [id number] #### [facility] [address] [place] [address] Microcytes Ql (Bld) PRESENT Invalid Interpretation Code [facility] Comment on above: Performed By: #### 2 [id number] #### [facility] [address] [place] [address] Monocytes (Bld) [#/Vol] 1.3 E9/L High 0.2-1.0 [facility] Comment on above: Performed By: #### 2 [id number] #### [facility] [address] [place] [address] Neutrophils (Bld) [#/Vol] 7.7 E9/L High 2.0-7.5 [facility] Comment on above: Performed By: #### 2 [id number] #### [facility] [address] [place] [address] Neutrophils/100 WBC (Bld) 70.1 % Normal 36.0-75.0 [facility] Comment on above: Performed By: #### 2 [id number] #### [facility] [address] [place] [address] Platelet 284.0 E9/L Normal 150.0-500. 0 [facility] Comment on above: Performed By: #### 2 [id number] #### [facility] [address] [place] [address] Platelet mean volume (Bld) [Entitic vol] 8.4 fL Normal 6.4-10.8 [facility] Comment on above: Performed By: #### 2 [id number] #### [facility] [address] [place] [address] RBC (Bld) [#/Vol] 3.2 E12/L Low 4.3-5.9 [facility] Comment on above: Performed By: #### 2 [id number] #### [facility] [address] [place] [address] RBC size Nom (Bld) SEE MORPHOLOGY Invalid Interpretation Code [facility] Comment on above: Performed By: #### 2 [id number] #### [facility] [address] [place] [address] WBC corrected for nucl RBC Auto (Bld) [#/Vol] 11.0 E9/L Normal 4.0-11.0 [facility] Comment on above: Performed By: #### 2 [id number] #### [facility] [address] [place] [address] Capillary Glucose POCon 02-03 Glucose [Mass/Vol] 266 mg/dL High 55-99 [facility] Comment on above: Result Comment: Deon hathaway RN/ Performed By: #### 2 [id number] #### [facility] [address] [place] [address] Glucose [Mass/Vol] 319 mg/dL High 55-99 [facility] Comment on above: Result Comment: Deon hathaway RN/ Performed By: #### 2 [id number] #### [facility] [address] [place] [address] Glucose [Mass/Vol] 403 mg/dL High 55-99 [facility] Comment on above: Result Comment: Deon hathaway RN/ Performed By: #### 2 [id number] #### [facility] [address] [place] [address] Glucose [Mass/Vol] 319 mg/dL High 55-99 [facility] Comment on above: Result Comment: Deon hathaway RN/ Performed By: #### 2 [id number] #### [facility] [address] [place] [address] Glucose [Mass/Vol] 253 mg/dL High 55-99 [facility] Comment on above: Result Comment: Deon hathaway RN/ Performed By: #### 2 [id number] #### [facility] [address] [place] [address] Coding Queryon 02-16-2024 Coding Query Coding Query From: Rachelle Diaz RN To: Elan Antonio MD; Sent: 02/13/2024 10:18:56 EDT ! Subject: Coding Query Due Date/Time: 02/14/2024 10:18:00 EDT Caller Name: SOLOMON PICKARD SR; Caller Number: H Documentation in the medical record indicates a diagnosis of Anemia with: Change in hematocrit or hemoglobin from 7.3 to 6.3 Other bleeding Blood transfusion of 2 PRBC units Other: H&P 4. Anemia Unspecified noted hgb of 7.3 post surgical intervention vitals are stable will order type and screen in am Based on your medical judgment, can you please clarify which, if any, of the following conditions are present? Select all that apply: [___]Acute blood loss anemia [___]Other: In responding to this request, please exercise your independent professional judgement. The fact that a question is asked does not imply that any particular answer is desired or expected. Thank you![id number] From: Elan Antonio MD To: Rachelle Diaz RN; Sent: 02/16/2024 18:24:47 EDT Subject: RE: Coding Query Caller Name: SOLOMON PICKARD SR; Caller Number: H Dx: acute blood loss anemia Normal [facility] Inpatient Clinical Summaryon 02-16-2024 Inpatient Clinical Summary Inpatient Clinical Summary [address] [address] Clinical Summary Person Information: Name: SOLOMON PICKARD SR Age: 58 Years : 1965 Sex: Male PCP: JENARO LYNCH DO Marital Status: Race: White Ethnicity: Non- or Language: Dominican Visit Id: Visit Reason: I70.261 Speciality: Acuity: Enc Type: Inpatient Med Service: Medical Arrival: 02/12/2024 11:13:26 Discharge: Dispo Type: Address: [address] [place] [address] [address] [facility] [id number] Provider Notes: Diagnosis: 1:Hx of right BKA; 2:Essential hypertension; 3:Hyperlipidemia; 4:Anemia; 5: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; 6:Stage 3 chronic kidney disease; 7:Coronary artery disease; 8:Tobacco abuse Problems Active Gross hematuria Orchitis BPH with obstruction/lower urinary tract symptoms Urinary retention Heart murmur Heart disease Heart attack Head ache COPD type A Asthma Smoker Hyperlipidemia Restless leg Arthritis Fibromyalgia Smoking Status: Current Every Day Smoker Functional Status: Sensory Deficits: History of Falls: Mobility Assistance Prior to Admission: ADLs: Minimal assistance Current Level of Assistance for Self-Care/Mobility: Cognitive Status: Allergies penicillin G benzathine Latex (Rash) (Itching) penicillins (Anaphylactoid reaction) Measurements: Height: 179.4 cm Weight: 94.5 kg Blood Pressure: 116 mmHg / 70 mmHg BMI: Procedures BKA - Below knee amputation (02/12/2024) Immunizations No Immunizations Documented This Visit Final Med List: albuterol (ProAir HFA) Inhalation every 6 hours as needed Shortness of breath or wheezing. amitriptyline (amitriptyline 100 mg oral tablet) 1 Tablets By Mouth once a day (at bedtime). aspirin (aspirin 81 mg Oral EC Tab) 1 Tablets By Mouth every day. atorvastatin (Lipitor 80 mg Tab) 1 Tablets By Mouth every day. clopidogrel (Plavix 75 mg Tab) 1 Tablets By Mouth every day. dulaglutide (Trulicity Pen 0.75 mg/0.5 mL subcutaneous solution) 0.75 Milligram Subcutaneous every week. empagliflozin (Jardiance 10 mg oral tablet) 1 Tablets By Mouth once a day (in the morning). furosemide (furosemide 40 mg Tab) 1 Tablets By Mouth every day. glimepiride (Amaryl 2 mg Tab) 1 Tablets By Mouth 2 times a day. hydrochlorothiazide-valsa rtan (hydrochlorothiazide-vals jorge 12.5 mg-160 mg Tab) 1 Tablets By Mouth every day. isosorbide mononitrate (isosorbide mononitrate 30 mg ER Tab) 1 Tablets By Mouth once a day (in the morning). metformin (metformin 1000 mg Tab) 1 Tablets By Mouth 2 times a day. metoprolol (metoprolol tartrate 100 mg Tab) 0.5 Tablets By Mouth 2 times a day. nitroglycerin (NitroStat 0.4 mg Tab) 1 Tablets Sublingual every 5 minutes as needed for chest pain. omeprazole (omeprazole 40 mg Cap-DR) 1 Capsules By Mouth every day. pregabalin (pregabalin 200 mg Cap) 1 Capsules By Mouth 3 times a day. rimegepant (Nurtec ODT 75 mg oral tablet, disintegrating) 1 Tablets By Mouth every 24 hours as needed Migraine headache. ropinirole (ropinirole 1 mg Tab) 1 Tablets By Mouth 3 times a day. sitagliptin (Januvia 100 mg Tab) 1 Tablets By Mouth every day. tamsulosin (tamsulosin 0.4 mg Cap) 1 Capsules By Mouth 2 times a day. Refills: 11. tiotropium (Spiriva 18 mcg Cap) 1 Capsules Inhalation every day. Using only ONE capsule, have the patient inhale twice. Care Team Members: Attending Physician: Padmini Montes MD Consulting Physician: Padmini Montes MD Referring Physician: Padmini Montes MD Follow up: Patient Education Information: Normal 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; 6:Stage 3 chronic kidney disease; 7:Coronary artery disease; 8:Tobacco abuse Condition at Discharge: SOLOMON PICKARD SR has been given the following list of follow-up instructions, prescriptions, and patient education materials: PATIENT FOLLOW-UP INFORMATION Diet: Discharge Activity: Discharge Restrictions: Wound Care Instructions: Remove Your Dressing In Days Call Your Doctor For: IF UNABLE TO CONTACT YOUR PHYSICIAN AND YOU FEEL IT IS AN EMERGENCY, GO TO THE NEAREST EMERGENCY ROOM OR CALL 911 Home Treatment: Devices/Equipment: None Special Services: Additional Instructions: Primary Care Physician to provide the following pending test results: Follow up: In the event that this physician does not participate in your insurance network, please consult with your insurance company to find a nearby participating provider. Comment: June, GASTON CHRISTIAN, SOLOMON Daniel, have received the attached patient education materials/instructions and have verbalized understanding: Patient Signature ____ Date Clinican/Nurse Signature Date HERE ARE THE MEDICATION CHANGES THAT OCCURRED DURING YOUR HOSPITAL STAY Medications to Continue Taking That Have Changed Other Medications START: amitriptyline (amitriptyline 100 mg oral tablet) 1 Tablets By Mouth once a day (at bedtime). Last Dose: Next Dose: STOP: amitriptyline (amitriptyline 100 mg oral tablet) By Mouth once a day (at bedtime). START: aspirin (aspirin 81 mg Oral EC Tab) 1 Tablets By Mouth every day. Last Dose: Next Dose: STOP: aspirin (Aspirin 81 mg Tab-EC) START: dulaglutide (Trulicity Pen 0.75 mg/0.5 mL subcutaneous solution) 0.75 Milligram Subcutaneous every week. Last Dose: Next Dose: STOP: dulaglutide (Trulicity Pen 1.5 mg/0.5 mL subcutaneous solution) START: hydrochlorothiazide-valsa rtan (hydrochlorothiazide-vals jorge 12.5 mg-160 mg Tab) 1 Tablets By Mouth every day. Last Dose: Next Dose: STOP: hydrochlorothiazide-valsa rtan (hydrochlorothiazide-vals jorge 12.5 mg-160 mg Tab) By Mouth every day. START: isosorbide mononitrate (isosorbide mononitrate 30 mg ER Tab) 1 Tablets By Mouth once a day (in the morning). Last Dose: Next Dose: START: metformin (metformin 1000 mg Tab) 1 Tablets By Mouth 2 times a day. Last Dose: Next Dose: STOP: metformin 1,000 Milligram By Mouth 2 times a day. START: metoprolol (metoprolol tartrate 100 mg Tab) 0.5 Tablets By Mouth 2 times a day. Last Dose: Next Dose: STOP: metoprolol 100 Milligram 2 times a day. START: omeprazole (omeprazole 40 mg Cap-DR) 1 Capsules By Mouth every day. Last Dose: Next Dose: STOP: omeprazole (Prilosec) By Mouth every day. START: pregabalin (pregabalin 200 mg Cap) 1 Capsules By Mouth 3 times a day. Last Dose: Next Dose: STOP: pregabalin (Lyrica) 200 Milligram By Mouth 3 times a day. START: ropinirole (ropinirole 1 mg Tab) 1 Tablets By Mouth 3 times a day. Last Dose: Next Dose: STOP: ropinirole (Requip) 1 Milligram By Mouth 3 times a day. START: sitagliptin (Januvia 100 mg Tab) 1 Tablets By Mouth every day. Last Dose: Next Dose: STOP: sitagliptin (Januvia 100 mg Tab) By Mouth every day. Medications to Continue with No Changes Other Medications albuterol (ProAir HFA) Inhalation every 6 hours as needed Shortness of breath or wheezing. Last Dose: Next Dose: atorvastatin (Lipitor 80 mg Tab) 1 Tablets By Mouth every day. Last Dose: Next Dose: clopidogrel (Plavix 75 mg Tab) 1 Tablets By Mouth every day. Last Dose: Next Dose: empagliflozin (Jardiance 10 mg oral tablet) 1 Tablets By Mouth once a day (in the morning). Last Dose: Next Dose: furosemide (furosemide 40 mg Tab) 1 Tablets By Mouth every day. Last Dose: (more content not included)... Normal [facility] Insurance Correspondence Off iceberto 02-16-2024 Insurance Correspondence Office Insurance Correspondence Office OPERATIVE NOTE Operative Report SURGERY DATE: 02/12/2024 PREOPERATIVE DIAGNOSIS: Right forefoot gangrene POSTOPERATIVE DIAGNOSIS: Right forefoot gangrene OPERATION: Right below-knee amputation ANESTHESIA: General anesthesia INDICATIONS: This is a 58-year-old gentleman, a diabetic with forefoot gangrene status post transmetatarsal amputation and nonhealing. We discussed different options and it was elected to proceed with below-knee amputation. Informed consent was obtained. PROCEDURE: The patient was taken back to the Operating Room and placed in supine position. Appropriate cardiopulmonary monitors were set. Anesthesia was induced. The right leg was prepped and draped in the usual sterile surgical fashion. He had received antibiotics. After time-out and safety pause, a fishmouth incision configuration was created about 8 to 10 cm from the tibial tubercle. Skin and subcutaneous tissue and fascia were transected and dissected using electrocautery Bovie. We had a tourniquet up. The muscles were cut using Bovie and ligature. All the named vessels and potential bleeders were ligated using 2-0 Prolene sutures. Hemostasis was achieved. Then the bone was cut in the upper tibia and fibula using a bone saw. Hemostasis was achieved and the tourniquet was taken down and made sure there was no bleeding. Then the fascia was closed using interrupted 2-0 Vicryl and 0 Vicryl sutures, and the skin was stapled. The patient tolerated the procedure very well. No complications. All counts were correct. Padmini Montes M.D. noe Dictated: 02/12/2024 [id number] Transcribed: 02/13/2024 [facility] Interdisciplinary Note - Jorge e Manageron 02-16-2024 Interdisciplinary Note - Thermostat Mechanic Interdisciplinary Note - Thermostat Mechanic This SW received notification from [facility] that patient's had called and wanted to cancel the Acute Rehab and proceed with [facility]. TC from Acute Rehab was received asking if this was accurate and if patient understood the difference between Acute Rehab and SNF. SW met with patient and his today to update them that Acute Rehab had received precert and that per Dr. Cantu, patient was ready to d/c as soon as precert was obtained; therefore if going to Acute Rehab, he would be discharged there today. SW also explained that if going to [facility], precert would have to be obtained. SW spent a lengthy amount of time going over the differences between the 2 faciliites with patient. He informed SW that his choice was to go to [facility], not Acute Rehab. SW notified Acute Rehab to withdraw their precert so SNF could obtain one. That has been done and precert is pending for SNF. SW also spoke to patient and his about Waiver services under Medicaid and encouraged patient's to discuss this with [facility] when she calls them about patient's insurance when she calls them in a few days. SW also recommended she consider looking into getting a ramp or at least a 2nd handrail on their steps since there are 3 steps to enter their home. Normal [facility] Comment on above: Result Comment: Elec tronically Signed By: Evens SÁNCHEZ, Fely Martin\.br\Date and Time Signed: 02/16/24 12:45 EDT eGFRon 02-16-2024 eGFR 43 mL/min/1.73 m2 Low >=59 [facility] Comment on above: Order Comment: Order added by Discern Expert. Performed By: #### 1 [id number] #### [facility] Laboratory [address] [place] [address] [facility] Anion gap [Moles/Vol] 9 mmol/L Normal 6-16 [facility] Comment on above: Performed By: #### 2 [id number] #### [facility] Laboratory [address] [place] [address] Calcium [Mass/Vol] 8.3 mg/dL Low 8.9-11.1 [facility] Comment on above: Performed By: #### 2 [id number] #### [facility] Laboratory [address] [place] [address] Chloride [Moles/Vol] 98 mmol/L Low 101-111 [facility] Comment on above: Performed By: #### 2 [id number] #### [facility] Laboratory [address] [place] [address] CO2 [Moles/Vol] 30 mmol/L Normal 21-31 [facility] Comment on above: Performed By: #### 2 [id number] #### [facility] Laboratory [address] [place] [address] Creatinine [Mass/Vol] 1.9 mg/dL High 0.5-1.3 [facility] Comment on above: Performed By: #### 2 [id number] #### [facility] Laboratory [address] [place] [address] Glucose [Mass/Vol] 319 mg/dL High 55-199 [facility] Comment on above: Performed By: #### 2 [id number] #### [facility] Laboratory [address] [place] [address] Potassium [Moles/Vol] 3.9 mmol/L Normal 3.5-5.3 [facility] Comment on above: Performed By: #### 2 [id number] #### [facility] Laboratory [address] [place] [address] Sodium [Moles/Vol] 133 mmol/L Low 135-145 [facility] Comment on above: Performed By: #### 2 [id number] #### [facility] Laboratory [address] [place] [address] Urea nitrogen [Mass/Vol] 25 mg/dL High 5-21 [facility] Comment on above: Performed By: #### 2 [id number] #### [facility] Laboratory [address] [place] [address] Urea nitrogen/Creatinine [Mass ratio] 13 No Units Normal 10-20 [facility] Comment on above: Performed By: #### 2 [id number] #### [facility] Laboratory [address] [place] [address] CBC w/Indiceson 02-15-2024 Erythrocyte distribution width (RBC) [Ratio] 20.9 % High 10.9-14.2 [facility] Comment on above: Performed By: #### 2 [id number] #### [facility] Laboratory [address] [place] [address] Hematocrit (Bld) [Volume fraction] 22.2 % Low 37.7-49.0 [facility] Comment on above: Performed By: #### 2 [id number] #### [facility] Laboratory [address] [place] [address] Hemoglobin (Bld) [Mass/Vol] 7.7 g/dL Low 13.5-17.5 [facility] Comment on above: Performed By: #### 2 [id number] #### [facility] Laboratory [address] [place] [address] MCH (RBC) [Entitic mass] 24.3 pg Low 27.0-34.0 [facility] Comment on above: Performed By: #### 2 [id number] #### [facility] Laboratory [address] [place] [address] MCHC (RBC) [Mass/Vol] 34.6 g/dL Normal 31.4-36.0 [facility] Comment on above: Performed By: #### 2 [id number] #### [facility] Laboratory [address] [place] [address] MCV (RBC) [Entitic vol] 70.2 fL Low 80.0-100.0 [facility] Comment on above: Performed By: #### 2 [id number] #### [facility] Laboratory [address] [place] [address] Platelet 239.0 E9/L Normal 150.0-500. 0 [facility] Comment on above: Performed By: #### 2 [id number] #### [facility] Laboratory [address] [place] [address] Platelet mean volume (Bld) [Entitic vol] 8.2 fL Normal 6.4-10.8 [facility] Comment on above: Performed By: #### 2 [id number] #### [facility] Laboratory [address] [place] [address] RBC (Bld) [#/Vol] 3.2 E12/L Low 4.3-5.9 [facility] Comment on above: Performed By: #### 2 [id number] #### [facility] Laboratory [address] [place] [address] RBC size Nom (Bld) NORMAL Invalid Interpretation Code [facility] Comment on above: Performed By: #### 2 [id number] #### [facility] Laboratory [address] [place] [address] WBC corrected for nucl RBC Auto (Bld) [#/Vol] 9.0 E9/L Normal 4.0-11.0 [facility] Comment on above: Performed By: #### 2 [id number] #### [facility] Laboratory [address] [place] [address] Capillary Glucose POCon 02-03 Glucose [Mass/Vol] 398 mg/dL High 55-99 [facility] Comment on above: Result Comment: Deon hathaway RN/ Performed By: #### 2 [id number] #### [facility] Laboratory [address] [place] [address] Glucose [Mass/Vol] 337 mg/dL High 55-99 [facility] Comment on above: Result Comment: Deon hathaway RN/ Performed By: #### 2 [id number] #### [facility] Laboratory [address] [place] [address] Glucose [Mass/Vol] 228 mg/dL High 55-99 [facility] Comment on above: Result Comment: Deon hathaway RN/ Performed By: #### 2 [id number] #### [facility] Laboratory [address] [place] [address] Glucose [Mass/Vol] 309 mg/dL High 55-99 [facility] Comment on above: Result Comment: Deon hathaway RN/ Performed By: #### 2 [id number] #### [facility] Laboratory [address] [place] [address] Interdisciplinary Note - Jorge e Manageron 02-15-2024 Interdisciplinary Note - Thermostat Mechanic Interdisciplinary Note - Thermostat Mechanic CRM to room 309 Patient is awake, alert and oriented. Patient is from home with his spouse. Patient verified PCP, DME and insurance. Patient is here as inpatient. Patient had Right BKA. Patient is assigned to Dr Antonio. Vascular Dr Montes did surgery. Patient is getting transfusion PRBC. Patient will need PT/OT added when appropriate. Patient would like rehab stay. Choices were [facility]. [facility] can accept. Patient was provided CRM contact, white board updated. CRM following DC date when [facility] can take per Dr Antonio patient is not ready for DC now drop in HGB, bleeding at stump and still on IV pain meds Rehab needs him on an oral regimen Normal [facility] Comment on above: Result Comment: Elec tronically Signed By: Raina Aguilar\.br\Date and Time Signed: 02/15/24 14:08 EDT Magnesiumon 02-15-2024 Magnesium [Mass/Vol] 1.7 mg/dL Normal 1.3-2.4 [facility] Comment on above: Performed By: #### 2 [id number] #### [facility] Laboratory [address] [place] [address] PT & PTTon 02-15-2024 aPTT Coag (PPP) [Time] 28.6 second(s) Normal 25.1-36.5 [facility] Comment on above: Result Comment: Para meter 15 days - 4 weeks 1 - 5 months 6 - 11 months 1 - 5 years 6 - 10 years 11 - 17 years PTT Mean: 35.4 (27.6-45.6) Mean: 33.5 (24.8-40.7) Mean: 32.4 (25.1-40.7) Mean: 31.6 (24.0-39.2) Mean: 31.6 (26.9-38.7) Mean: 31.0 (24.6-38.4) Pediatric Reference ranges were obtained from a study by brett Padilla al. prepared from 1437 samples obtained at 7 different centers using the same coagulation reagent and instrumentation as [facility] [place] [place]. Currently there are no coagulation studies available worldwide for children to 14 days, and no normal ranges. Heparin therapeutic range (represented by Anti-Factor Xa activity of 0.2 - 0.4 U/mL) corresponds to PTT of 56.6 - 109.0 sec. Performed By: #### 1 [id number] #### [facility] Laboratory [address] [place] [address] INR Coag (PPP) [Relative time] 1.09 {INR} Invalid Interpretation Code [facility] Comment on above: Result Comment: INR results are specifically intended to assess patients stabilized on long-term Anticoagulation therapy suggested INR?s ?Less Intensive Anticoagulation? 2.0 ? 3.0 Conventional Range 3.0 ? 4.5 Performed By: #### 1 [id number] #### [facility] Laboratory [address] [place] [address] PT Coag (PPP) [Time] 12.2 second(s) Normal 9.4-12.5 [facility] Comment on above: Result Comment: 15 d ays - 4 weeks 1 - 5 months 6 -11 months 1 ? 5 years 6 ? 10 years 11 -17 years Mean: 11.2 (9.5 ? 12.6) Mean: 11.0 (9.7 ? 12.8) Mean: 11.0 (9.8 ? 13.0) Mean: 11.3 (9.9 ? 13.4) Mean: 11.7 (10.0 ? 14.6) Mean: 11.8 (10.0 - 14.1) Pediatric Reference ranges were obtained from a study by Colby Umana et al. prepared from 1437 samples obtained at 7 different centers using the same coagulation reagent and instrumentation as [facility] [place] [place]. Currently there are no coagulation studies available worldwide for children to 14 days, and no normal ranges. Performed By: #### 1 [id number] #### [facility] Laboratory [address] [place] [address] Phosphoruson 02-15-2024 Phosphate [Mass/Vol] 3.8 mg/dL Normal 1.9-4.6 [facility] Comment on above: Performed By: #### 2 [id number] #### [facility] Laboratory [address] [place] [address] eGFRon 02-15-2024 eGFR 40 mL/min/1.73 m2 Low >=59 [facility] Comment on above: Order Comment: Order added by Discern Expert. Performed By: #### 1 [id number] #### [facility] Laboratory [address] [place] [address] BMPon 02-14-2024 Anion gap [Moles/Vol] 12 mmol/L Normal 6-16 [facility] Comment on above: Performed By: #### 2 [id number] #### [facility] Laboratory [address] [place] [address] Calcium [Mass/Vol] 8.3 mg/dL Low 8.9-11.1 [facility] Comment on above: Performed By: #### 2 [id number] #### [facility] Laboratory [address] [place] [address] Chloride [Moles/Vol] 96 mmol/L Low 101-111 [facility] Comment on above: Performed By: #### 2 [id number] #### [facility] Laboratory [address] [place] [address] CO2 [Moles/Vol] 28 mmol/L Normal 21-31 [facility] Comment on above: Performed By: #### 2 [id number] #### [facility] Laboratory [address] [place] [address] Creatinine [Mass/Vol] 1.8 mg/dL High 0.5-1.3 [facility] Comment on above: Performed By: #### 2 [id number] #### [facility] Laboratory [address] [place] [address] Glucose [Mass/Vol] 298 mg/dL High 55-199 [facility] Comment on above: Performed By: #### 2 [id number] #### [facility] Laboratory [address] [place] [address] Potassium [Moles/Vol] 3.7 mmol/L Normal 3.5-5.3 [facility] Comment on above: Performed By: #### 2 [id number] #### [facility] Laboratory [address] [place] [address] Sodium [Moles/Vol] 132 mmol/L Low 135-145 [facility] Comment on above: Performed By: #### 2 [id number] #### [facility] Laboratory [address] [place] [address] Urea nitrogen [Mass/Vol] 21 mg/dL Normal 5-21 [facility] Comment on above: Performed By: #### 2 [id number] #### [facility] Laboratory [address] [place] [address] Urea nitrogen/Creatinine [Mass ratio] 12 No Units Normal 10-20 [facility] Comment on above: Performed By: #### 2 [id number] #### [facility] Laboratory [address] [place] [address] CBC w/ Auto Diffon 4 Basophils/100 WBC (Bld) 1.9 % Normal 0.0-2.0 [facility] Comment on above: Performed By: #### 2 [id number] #### [facility] Laboratory [address] [place] [address] Basophils/Leukocytes Auto (Bld) [Pure # fraction] 0.2 E9/L Normal 0.0-0.2 [facility] Comment on above: Performed By: #### 2 [id number] #### [facility] Laboratory [address] [place] [address] Eosinophils (Bld) [#/Vol] 0.3 E9/L Normal 0.0-0.5 [facility] Comment on above: Performed By: #### 2 [id number] #### [facility] Laboratory [address] [place] [address] Eosinophils/100 WBC (Bld) 3.1 % Normal 0.0-8.0 [facility] Comment on above: Performed By: #### 2 [id number] #### [facility] Laboratory [address] [place] [address] Erythrocyte distribution width (RBC) [Ratio] 21.1 % High 10.9-14.2 [facility] Comment on above: Performed By: #### 2 [id number] #### [facility] Laboratory [address] [place] [address] Hematocrit (Bld) [Volume fraction] 26.4 % Low 37.7-49.0 [facility] Comment on above: Performed By: #### 2 [id number] #### [facility] Laboratory [address] [place] [address] Hemoglobin (Bld) [Mass/Vol] 8.5 g/dL Low 13.5-17.5 [facility] Comment on above: Performed By: #### 2 [id number] #### [facility] Laboratory [address] [place] [address] Hypochromia Auto Ql (Bld) PRESENT Invalid Interpretation Code [facility] Comment on above: Performed By: #### 2 [id number] #### [facility] Laboratory [address] [place] [address] Lymphocytes (Bld) [#/Vol] 1.1 E9/L Normal 1.0-4.0 [facility] Comment on above: Performed By: #### 2 [id number] #### [facility] Laboratory [address] [place] [address] Lymphocytes/100 WBC (Bld) 11.3 % Low 14.0-50.0 [facility] Comment on above: Performed By: #### 2 [id number] #### [facility] Laboratory [address] [place] [address] MCH (RBC) [Entitic mass] 23.3 pg Low 27.0-34.0 [facility] Comment on above: Performed By: #### 2 [id number] #### [facility] Laboratory [address] [place] [address] MCHC (RBC) [Mass/Vol] 32.4 g/dL Normal 31.4-36.0 [facility] Comment on above: Performed By: #### 2 [id number] #### [facility] Laboratory [address] [place] [address] MCV (RBC) [Entitic vol] 71.8 fL Low 80.0-100.0 [facility] Comment on above: Performed By: #### 2 [id number] #### [facility] Laboratory [address] [place] [address] Microcytes Ql (Bld) PRESENT Invalid Interpretation Code [facility] Comment on above: Performed By: #### 2 [id number] #### [facility] Laboratory [address] [place] [address] Monocytes (Bld) [#/Vol] 1.0 E9/L Normal 0.2-1.0 [facility] Comment on above: Performed By: #### 2 [id number] #### [facility] Laboratory [address] [place] [address] Neutrophils (Bld) [#/Vol] 7.5 E9/L Normal 2.0-7.5 [facility] Comment on above: Performed By: #### 2 [id number] #### [facility] Laboratory [address] [place] [address] Neutrophils/100 WBC (Bld) 74.1 % Normal 36.0-75.0 [facility] Comment on above: Performed By: #### 2 [id number] #### [facility] Laboratory [address] [place] [address] Platelet mean volume (Bld) [Entitic vol] 8.3 fL Normal 6.4-10.8 [facility] Comment on above: Performed By: #### 2 [id number] #### [facility] Laboratory [address] [place] [address] Platelets (Bld) [#/Vol] 244.0 E9/L Normal 150.0-500. 0 [facility] Comment on above: Performed By: #### 2 [id number] #### [facility] Laboratory [address] [place] [address] RBC (Bld) [#/Vol] 3.7 E12/L Low 4.3-5.9 [facility] Comment on above: Performed By: #### 2 [id number] #### [facility] [address] [place] [address] RBC size Nom (Bld) SEE MORPHOLOGY Invalid Interpretation Code [facility] Comment on above: Performed By: #### 2 [id number] #### [facility] [address] [place] [address] WBC corrected for nucl RBC Auto (Bld) [#/Vol] 10.2 E9/L Normal 4.0-11.0 [facility] Comment on above: Performed By: #### 2 [id number] #### [facility] Laboratory [address] [place] [address] Capillary Glucose POCon 02-03 Glucose [Mass/Vol] 269 mg/dL High 55-99 [facility] Comment on above: Result Comment: Deon hathaway RN/ Performed By: #### 2 [id number] #### [facility] Laboratory [address] [place] [address] Glucose [Mass/Vol] 279 mg/dL High -[address] [place] [address] Comment on above: Result Comment: Deon hathaway RN/ Performed By: #### 2 [id number] #### [facility] [address] [place] [address] Glucose [Mass/Vol] 285 mg/dL High -[address] [place] [address] Comment on above: Result Comment: Repe at Test Performed By: #### 2 [id number] #### [facility] Laboratory [address] [place] [address] Glucose [Mass/Vol] 242 mg/dL High 55-[address] [place] [address] Comment on above: Result Comment: Repe at Test Performed By: #### 2 [id number] #### [facility] [address] [place] [address] Interdisciplinary Note - Jorge e Manageron 02-14-2024 Interdisciplinary Note - Thermostat Mechanic Interdisciplinary Note - Thermostat Mechanic This SW rounded with patient in room 309 this morning. Patient is alert, oriented, and involved in his plan of care. He remains agreeable to going to 1) [facility] Acute Rehab - referral pending, 2) [facility] - they have accepted, or 3) [facility] - they have accepted. Acute Rehab is awaiting therapy notes to make their final determination. SW will update patient once determination is received. Patient did request that SW contact his , Yamileth, with an update this afternoon. TC made to Yamileth and she was updated on the above. She voiced that patient has been refusing her recommendation for [facility] Acute Rehab, however SW let her know that he was agreeable this morning. This SW had discussed the differences between Acute Rehab and SNF to patient. Normal [facility] Comment on above: Result Comment: Elec tronically Signed By: Fely Narvaez.br\Date and Time Signed: 02/14/24 12:15 EDT Interdisciplinary Note - Thermostat Mechanic Interdisciplinary Note - Thermostat Mechanic This SW rounded with patient in room 309 this morning. Patient is alert, oriented, and involved in his plan of care. He remains agreeable to going to 1) [facility] Acute Rehab - referral pending, 2) [facility] - they have accepted, or 3) [facility] - they have accepted. Acute Rehab is awaiting therapy notes to make their final determination. SW will update patient once determination is received. Patient did request that SW contact his , Yamileth, with an update this afternoon. Normal [facility] Comment on above: Result Comment: Elec tronically Signed By: Fely [email or web address].br\Date and Time Signed: 02/14/24 09:38 EDT Interdisciplinary Note - Maria Elena n 02-14-2024 Interdisciplinary Note - OT Interdisciplinary Note - OT OT AM-PAC six clicks score =SNF. 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 Pt requires setup A while seated for self care tasks. Pt is unable to engage in ADL transfers or functional mobilty at this time due to amputation of R LE and pain. SNF is recommended for dc to maximize pt safety and independence with all ADLs self care tasks and ADL transfers and functional mobility. OT to follow daily progressing as pt tolerates. Normal [facility] Magnesiumon 02-14-2024 Magnesium [Mass/Vol] 1.8 mg/dL Normal 1.3-2.4 [facility] Comment on above: Performed By: #### 2 [id number] #### [facility] Laboratory [address] [place] [address] PT & PTTon 02-14-2024 aPTT Coag (PPP) [Time] 28.8 second(s) Normal 25.1-36.5 [facility] Comment on above: Result Comment: Para meter 15 days - 4 weeks 1 - 5 months 6 - 11 months 1 - 5 years 6 - 10 years 11 - 17 years PTT Mean: 35.4 (27.6-45.6) Mean: 33.5 (24.8-40.7) Mean: 32.4 (25.1-40.7) Mean: 31.6 (24.0-39.2) Mean: 31.6 (26.9-38.7) Mean: 31.0 (24.6-38.4) Pediatric Reference ranges were obtained from a study by Colby Umana et al. prepared from 1437 samples obtained at 7 different centers using the same coagulation reagent and instrumentation as [facility] [place] [place]. Currently there are no coagulation studies available worldwide for children to 14 days, and no normal ranges. Heparin therapeutic range (represented by Anti-Factor Xa activity of 0.2 - 0.4 U/mL) corresponds to PTT of 56.6 - 109.0 sec. Performed By: #### 1 [id number] #### [facility] Laboratory [address] [place] [address] INR Coag (PPP) [Relative time] 1.04 {INR} Invalid Interpretation Code [facility] Comment on above: Result Comment: INR results are specifically intended to assess patients stabilized on long-term Anticoagulation therapy suggested INR?s ?Less Intensive Anticoagulation? 2.0 ? 3.0 Conventional Range 3.0 ? 4.5 Performed By: #### 1 [id number] #### [facility] Laboratory [address] [place] [address] PT Coag (PPP) [Time] 11.7 second(s) Normal 9.4-12.5 [facility] Comment on above: Result Comment: 15 d ays - 4 weeks 1 - 5 months 6 -11 months 1 ? 5 years 6 ? 10 years 11 -17 years Mean: 11.2 (9.5 ? 12.6) Mean: 11.0 (9.7 ? 12.8) Mean: 11.0 (9.8 ? 13.0) Mean: 11.3 (9.9 ? 13.4) Mean: 11.7 (10.0 ? 14.6) Mean: 11.8 (10.0 - 14.1) Pediatric Reference ranges were obtained from a study by Colby Umana et al. prepared from 1437 samples obtained at 7 different centers using the same coagulation reagent and instrumentation as [facility] [place] [place]. Currently there are no coagulation studies available worldwide for children to 14 days, and no normal ranges. Performed By: #### 1 [id number] #### [facility] Laboratory [address] [place] [address] Phosphoruson 02-14-2024 Phosphate [Mass/Vol] 3.8 mg/dL Normal 1.9-4.6 [facility] Comment on above: Performed By: #### 2 [id number] #### [facility] Laboratory [address] [place] [address] eGFRon 02-14-2024 eGFR 43 mL/min/1.73 m2 Low >=59 [facility] Comment on above: Order Comment: Order added by Discern Expert. Performed By: #### 1 [id number] #### [facility] Laboratory [address] [place] [address] BMP 02-13-2024 Anion gap [Moles/Vol] 11 mmol/L Normal 6-16 [facility] Comment on above: Performed By: #### 2 [id number] #### [facility] Laboratory [address] [place] [address] Calcium [Mass/Vol] 8.0 mg/dL Low 8.9-11.1 [facility] Comment on above: Performed By: #### 2 [id number] #### [facility] Laboratory [address] [place] [address] Chloride [Moles/Vol] 99 mmol/L Low 101-111 [facility] Comment on above: Performed By: #### 2 [id number] #### [facility] Laboratory [address] [place] [address] CO2 [Moles/Vol] 26 mmol/L Normal 21-31 [facility] Comment on above: Performed By: #### 2 [id number] #### [facility] Laboratory [address] [place] [address] Creatinine [Mass/Vol] 1.6 mg/dL High 0.5-1.3 [facility] Comment on above: Performed By: #### 2 [id number] #### [facility] Laboratory [address] [place] [address] Glucose [Mass/Vol] 234 mg/dL High 55-199 [facility] Comment on above: Performed By: #### 2 [id number] #### [facility] Laboratory [address] [place] [address] Potassium [Moles/Vol] 4.0 mmol/L Normal 3.5-5.3 [facility] Comment on above: Performed By: #### 2 [id number] #### [facility] Laboratory [address] [place] [address] Sodium [Moles/Vol] 132 mmol/L Low 135-145 [facility] Comment on above: Performed By: #### 2 [id number] #### [facility] Laboratory [address] [place] [address] Urea nitrogen [Mass/Vol] 19 mg/dL Normal 5-21 [facility] Comment on above: Performed By: #### 2 [id number] #### [facility] Laboratory [address] [place] [address] Urea nitrogen/Creatinine [Mass ratio] 12 No Units Normal 10-20 [facility] Comment on above: Performed By: #### 2 [id number] #### [facility] Laboratory [address] [place] [address] CBC w/Indiceson 02-13-2024 Erythrocyte distribution width (RBC) [Ratio] 18.8 % High 10.9-14.2 [facility] Comment on above: Performed By: #### 2 [id number] #### [facility] Laboratory [address] [place] [address] Hematocrit (Bld) [Volume fraction] 19.5 % Low 37.7-49.0 [facility] Comment on above: Performed By: #### 2 [id number] #### [facility] Laboratory [address] [place] [address] Hemoglobin (Bld) [Mass/Vol] 6.3 g/dL Abnormal 13.5-17.5 [facility] Comment on above: Result Comment: Crit ical Result Verified by Repeat Analysis Results called to CECI WELSH by BRAVO and read back on 02/13/2024 05:48:17. Performed By: #### 2 [id number] #### [facility] Laboratory [address] [place] [address] Hypochromia Auto Ql (Bld) PRESENT Invalid Interpretation Code [facility] Comment on above: Performed By: #### 2 [id number] #### [facility] Laboratory [address] [place] [address] MCH (RBC) [Entitic mass] 21.6 pg Low 27.0-34.0 [facility] Comment on above: Performed By: #### 2 [id number] #### [facility] Laboratory [address] [place] [address] MCHC (RBC) [Mass/Vol] 32.3 g/dL Normal 31.4-36.0 [facility] Comment on above: Performed By: #### 2 [id number] #### [facility] Laboratory [address] [place] [address] MCV (RBC) [Entitic vol] 67.0 fL Low 80.0-100.0 [facility] Comment on above: Performed By: #### 2 [id number] #### [facility] Laboratory [address] [place] [address] Microcytes Ql (Bld) PRESENT Invalid Interpretation Code [facility] Comment on above: Performed By: #### 2 [id number] #### [facility] Laboratory [address] [place] [address] Platelet 245.0 E9/L Normal 150.0-500. 0 [facility] Comment on above: Performed By: #### 2 [id number] #### [facility] Laboratory [address] [place] [address] Platelet mean volume (Bld) [Entitic vol] 8.2 fL Normal 6.4-10.8 [facility] Comment on above: Performed By: #### 2 [id number] #### [facility] Laboratory [address] [place] [address] RBC (Bld) [#/Vol] 2.9 E12/L Low 4.3-5.9 [facility] Comment on above: Performed By: #### 2 [id number] #### [facility] Laboratory [address] [place] [address] RBC size Nom (Bld) SEE MORPHOLOGY Invalid Interpretation Code [facility] Comment on above: Performed By: #### 2 [id number] #### [facility] Laboratory [address] [place] [address] WBC corrected for nucl RBC Auto (Bld) [#/Vol] 12.9 E9/L High 4.0-11.0 [facility] Comment on above: Performed By: #### 2 [id number] #### [facility] Laboratory [address] [place] [address] Capillary Glucose POCon 02-03 0-2023 Glucose [Mass/Vol] 332 mg/dL High 55-99 [facility] Comment on above: Result Comment: Deon ETIENNE Performed By: #### 2 [id number] #### [facility] Laboratory [address] [place] [address] Glucose [Mass/Vol] 194 mg/dL High 55-99 [facility] Comment on above: Result Comment: Deon ETIENNE Performed By: #### 2 [id number] #### [facility] Laboratory [address] [place] [address] Glucose [Mass/Vol] 195 mg/dL High 55-99 [facility] Comment on above: Result Comment: Deon ETIENNE Performed By: #### 2 [id number] #### [facility] Laboratory [address] [place] [address] Glucose [Mass/Vol] 194 mg/dL High 55-99 [facility] Comment on above: Result Comment: Deon ETIENNE Performed By: #### 2 [id number] #### [facility] Laboratory [address] [place] [address] Glucose [Mass/Vol] 324 mg/dL High 55-99 [facility] Comment on above: Result Comment: Deon hathaway RN/ Performed By: #### 2 [id number] #### [facility] Laboratory [address] [place] [address] Coding Queryon 02-13-2024 Coding Query Coding Query From: Rachelle Diaz RN To: Marisela HERRERA, Elan Robbins; Sent: 02/13/2024 10:18:56 EDT ! Subject: Coding Query Due Date/Time: 02/14/2024 10:18:00 EDT Caller Name: GASTON CHRISTIAN SOLOMON Daniel; Caller Number: H Documentation in the medical record indicates a diagnosis of Anemia with: Change in hematocrit or hemoglobin from 7.3 to 6.3 Other bleeding Blood transfusion of 2 PRBC units Other: H&P 4. Anemia Unspecified noted hgb of 7.3 post surgical intervention vitals are stable will order type and screen in am Based on your medical judgment, can you please clarify which, if any, of the following conditions are present? Select all that apply: [___]Acute blood loss anemia [___]Other: In responding to this request, please exercise your independent professional judgement. The fact that a question is asked does not imply that any particular answer is desired or expected. Thank you![email or web address] [id number] Normal [facility] Hct & Hgbon 02-13-2024 Hematocrit (Bld) [Volume fraction] 24.4 % Low 37.7-49.0 [facility] Comment on above: Performed By: #### 1 [id number] #### [facility] Laboratory [address] [place] [address] Hemoglobin (Bld) [Mass/Vol] 7.9 g/dL Low 13.5-17.5 [facility] Comment on above: Performed By: #### 1 [id number] #### [facility] Laboratory [address] [place] [address] [id number] 02-13-2024 HbA1c (Bld) [Mass fraction] 10.3 % High <=5.9 [facility] Comment on above: Performed By: #### 7 [id number] #### [facility] Laboratory [address] [place] [address] Interdisciplinary Note - Jorge e Manageron 02-13-2024 Interdisciplinary Note - Thermostat Mechanic Interdisciplinary Note - Thermostat Mechanic CRM to room 309 Patient is awake, alert and oriented. Patient is from home with his spouse. Patient verified PCP, DME and insurance. Patient is here as inpatient. Patient had Right BKA. Patient is assigned to Dr Antonio. Vascular Dr Montes did surgery. Patient is getting transfusion PRBC. Patient will need PT/OT added when appropriate. [place] Patient is unsure of choices yet. His spouse was doing some research. CRM did try to call Spouse at [phone] and left . CRM did leave printed SNF list in room. Patient was provided CRM contact, white board updated. CRM following DC date TBD. CRM will get updates at 10 AM from hospitalist called CRM choices [facility] and [facility] for rehab [facility] Comment on above: Result Comment: Elec tronically Signed By: Raina Aguilar\.br\Date and Time Signed: 02/13/24 13:10 EDT Interdisciplinary Note - Thermostat Mechanic Interdisciplinary Note - Thermostat Mechanic CRM to room 309 Patient is awake, alert and oriented. Patient is from home with his spouse. Patient verified PCP, DME and insurance. Patient is here as inpatient. Patient had Right BKA. Patient is assigned to Dr Antonio. Vascular Dr Montes did surgery. Patient is getting transfusion PRBC. Patient will need PT/OT added when appropriate. [place] Patient is unsure of choices yet. His spouse was doing some research. CRM did try to call Spouse at [phone] and left VM. CRM did leave printed SNF list in room. Patient was provided CRM contact, white board updated. CRM following DC date TBD. CRM will get updates at 10 AM from hospitalist [facility] Comment on above: Result Comment: Elec tronically Signed By: Raina Aguilar\.br\Date and Time Signed: 02/13/24 09:21 EDT Interdisciplinary Note - Maria Elena n 02-13-2024 Interdisciplinary Note - OT Interdisciplinary Note - OT 02/13/24: OT orders received, chart reviewed. Holding OT eval this date as Pt has critically low Hbg levels. Will try again with OT eval when Pt is medically appropriate. Normal [facility] Interdisciplinary Note - PTo n 02-13-2024 Interdisciplinary Note - PT Interdisciplinary Note - PT Order received and chart reviewed. Pt with critical Hgb levels at this time. Will hold and attempt tomorrow Normal [facility] Magnesiumon 02-13-2024 Magnesium [Mass/Vol] 1.3 mg/dL Normal 1.3-2.4 [facility] Comment on above: Performed By: #### 2 [id number] #### [facility] Laboratory [address] [place] [address] Main OR Intraoperative Recor don 02-13-2024 Main OR Intraoperative Record Main OR Intraoperative Record IntraOp Document Type FT Summary Primary Physician: Padmini Montes MD Finalized Date/Time: 02/13/24 13:38:10 Pt. Name: GASTON CHRISTIAN, SOLOMON Navarro./Sex: 1965 Male Med Rec #: [id number] Physician: Padmini Montes MD Financial #: [id number] Pt. Type: I Room/Bed: [place] [address] Admit/Disch: 02/12/24 11:13:26 - Institution: Case Times FT Entry 1 Patient Times In Room 02/12/24 13:26:00 Out Room 02/12/24 14:45:00 Procedure Times Start 02/12/24 13:54:00 Stop 02/12/24 14:36:00 Anesthesia Times Start 02/12/24 13:26:00 Stop 02/12/24 14:45:00 Last Modified By: Tyree Ruiz RN 02/12/24 14:44:51 General Comments: 02/13/24 Chart opened for charge review per Nemo Perez RN. [place] Case Attendance FT Entry 1 Entry 2 Entry 3 Case Attendee Lamonte MOON, Alexander Montes MD, Tyree Phipps RN Role Performed Anesthesiologist Surgeon - Primary Surveillance Systems Analyst - Primary Fiscal Services Manager Time In 02/12/24 13:26:00 02/12/24 13:45:00 02/12/24 13:26:00 Time Out 02/12/24 14:44:00 02/12/24 14:31:00 02/12/24 14:44:00 Procedure KNEE AMPUTATION KNEE AMPUTATION KNEE AMPUTATION BELOW(Right) BELOW(Right) BELOW(Right) Comments , anesthesia supervisor metal placing Last Modified By: Sara STERN, Tyree Ruiz RN, Tyree Ruiz RN, Tyree Simmons 02/12/24 14:44:09 02/12/24 14:44:09 02/12/24 14:44:09 Entry 4 Entry 5 Entry 6 Case Attendee Robinson RN, Jenise Jaquez CST, Radha Corona Role Performed Surveillance Systems Analyst - Primary GIS MANAGER/SA Scrub - Primary Time In 02/12/24 13:26:00 02/12/24 13:26:00 02/12/24 13:26:00 Time Out 02/12/24 14:44:00 02/12/24 14:44:00 02/12/24 14:44:00 Procedure KNEE AMPUTATION KNEE AMPUTATION KNEE AMPUTATION BELOW(Right) BELOW(Right) BELOW(Right) Comments in orientation Last Modified By: Sara STERN, Tyree Ruiz RN, Tyree Ruiz RN, Tyree Simmons 02/12/24 14:44:09 02/12/24 14:44:09 02/12/24 14:44:09 General Comments: Lima Puckett- hydrogen braze furnace operator, observing surgical case. Perioperative Protocols FT Pre-Care Text: Implements protective measures prior to operative or invasive procedure, confirms identity before the operative or invasive procedure, verifies operative procedure, surgical site, and laterality Entry 1 Procedure(s) KNEE AMPUTATION Patient Identity Birthday, Blood Band, BELOW(Right) Verified (select at ID Band Check, Patient least 2): Participation Consents / H and P Anesthesia Consent, Operative Site Present Verified H&P, Surgery/Procedure Marking Verified Consent, Transfusion Consent Surgical Site Yes Laterality Verified Yes Verified Procedure Verified Yes Correct Patient Yes Position Verified Availability Equipment, Medication Prep Dry n/a Verified (If Applicable) PreOp Antibiotic Yes Time Out Alexander Aburto CRNA, Given Participants Simon HERRERA, Padmini Weathers, Tyree Ruiz RN, Ott RN, Leonid Saenz CST, Gina Car Madison A Time Out Complete 02/12/24 13:53:00 Outcomes Met? Yes Last Modified By: Tyree Ruiz RN 02/12/24 13:54:39 Post-Care Text: The patient is free from signs and symptoms of injury caused by extraneous objects Allergy Information FT Pre-Care Text: Verifies allergies Entry 1 Allergies Reviewed? Yes Allergies Reviewed Self/Patient With Outcomes Met? Yes Last Modified By: Tyree Ruiz RN 02/12/24 12:46:25 Post-Care Text: The patient received appropriate medication(s) safely administered during the perioperative period Surgical Procedures FT Entry 1 Procedure Description Procedure KNEE AMPUTATION BELOW Modifiers Right Surgeon Description RIGHT BELOW THE KNEE AMPUTATION Primary Procedure Yes Primary Surgeon Padmini Montes MD Start 02/12/24 13:54:00 Stop 02/12/24 14:36:00 Anesthesia Type General Surgical Service Vascular Wound Class 4 - Dirty Last Modified By: Tyree Ruiz RN 02/12/24 14:44:21 General Case Data FT Pre-Care Text: Classifies surgical wound, implements aseptic technique, initiates traffic control Entry 1 Case Information OR OR 2 FT Case Level Level 4 Wound Class 4 - Dirty Specialty Vascular ASA Class 4 Preop Diagnosis I70.261-Atherosclerosis Postop Same 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 Postop Diagnosis I70.261-Atherosclerosis Outcomes Met? Yes of [place] arteries of extremities with gangrene, right leg. Last Modified By: Tyree Ruiz RN 02/12/24 14:03:41 Post-Care Text: The patient is free from signs and symptoms of infection Skin Assessment (Pre Procedure) FT Pre-Care Text: Implements protective measures to prevent skin/ tissue injury due to thermal or mechanical sources Evaluates for signs and symptoms of physical injury to skin and tissue Entry 1 Skin Integrity Intact, [place], Warm, & Skin Abnormality No Dry Outcomes Met? Yes Last Modified By: Tyree Ruiz RN 02/12/24 12:50:23 Post-Care Text: The patient is free from signs an (more content not included)... Normal [facility] PT & PTTon 02-13-2024 aPTT Coag (PPP) [Time] 27.5 second(s) Normal 25.1-36.5 [facility] Comment on above: Result Comment: Para meter 15 days - 4 weeks 1 - 5 months 6 - 11 months 1 - 5 years 6 - 10 years 11 - 17 years PTT Mean: 35.4 (27.6-45.6) Mean: 33.5 (24.8-40.7) Mean: 32.4 (25.1-40.7) Mean: 31.6 (24.0-39.2) Mean: 31.6 (26.9-38.7) Mean: 31.0 (24.6-38.4) Pediatric Reference ranges were obtained from a study by brett Padilla al. prepared from 1437 samples obtained at 7 different centers using the same coagulation reagent and instrumentation as [facility] [place] [place]. Currently there are no coagulation studies available worldwide for children to 14 days, and no normal ranges. Heparin therapeutic range (represented by Anti-Factor Xa activity of 0.2 - 0.4 U/mL) corresponds to PTT of 56.6 - 109.0 sec. Performed By: #### 1 [id number] #### [facility] Laboratory [address] [place] [address] INR Coag (PPP) [Relative time] 1.11 {INR} Invalid Interpretation Code [facility] Comment on above: Result Comment: INR results are specifically intended to assess patients stabilized on long-term Anticoagulation therapy suggested INR?s ?Less Intensive Anticoagulation? 2.0 ? 3.0 Conventional Range 3.0 ? 4.5 Performed By: #### 1 [id number] #### [facility] Laboratory [address] [place] [address] PT Coag (PPP) [Time] 12.5 second(s) Normal 9.4-12.5 [facility] Comment on above: Result Comment: 15 d ays - 4 weeks 1 - 5 months 6 -11 months 1 ? 5 years 6 ? 10 years 11 -17 years Mean: 11.2 (9.5 ? 12.6) Mean: 11.0 (9.7 ? 12.8) Mean: 11.0 (9.8 ? 13.0) Mean: 11.3 (9.9 ? 13.4) Mean: 11.7 (10.0 ? 14.6) Mean: 11.8 (10.0 - 14.1) Pediatric Reference ranges were obtained from a study by Colby Umana et al. prepared from 1437 samples obtained at 7 different centers using the same coagulation reagent and instrumentation as [facility] [place] [place]. Currently there are no coagulation studies available worldwide for children to 14 days, and no normal ranges. Performed By: #### 1 [id number] #### [facility] Laboratory [address] [place] [address] Phosphoruson 02-13-2024 Phosphate [Mass/Vol] 2.5 mg/dL Normal 1.9-4.6 [facility] Comment on above: Performed By: #### 2 [id number] #### [facility] Laboratory [address] [place] [address] RCOon 02-13-2024 # of Units 2 Invalid Interpretation Code [facility] Comment on above: Result Comment: 02/12 6:32 [id number] Blood product ready and called to Ceci Hoskins at 02/13/2024 06:32:44 EDT by [id number]. Performed By: #### 1 [id number] #### [facility] Laboratory [address] [place] [address] Date Required [id number] Invalid Interpretation Code [facility] Comment on above: Performed By: #### 1 [id number] #### [facility] Laboratory [address] [place] [address] Order to Transfuse Yes Normal [facility] Comment on above: Performed By: #### 1 [id number] #### [facility] Laboratory [address] [place] [address] Product Type None Required Invalid Interpretation Code [facility] Comment on above: Performed By: #### 1 [id number] #### [facility] Laboratory [address] [place] [address] eGFRon 02-13-2024 eGFR 49 mL/min/1.73 m2 Low >=59 [facility] Comment on above: Order Comment: Order added by Discern Expert. Performed By: #### 1 [id number] #### [facility] Laboratory [address] [place] [address] ABO/Rhon 02-12-2024 ABO/Rh Positive Invalid Interpretation Code [facility] Comment on above: Performed By: #### 2 [id number] #### [facility] Laboratory [address] [place] [address] ABO/Rh History Checkon 02-11 ABO/Rh History Check Type verified by second s Normal [facility] Comment on above: Performed By: #### 1 [id number] #### [facility] Laboratory [address] [place] [address] ABO/Rh Retypeon 02-12-2024 ABO/Rh Retype Interp Positive Invalid Interpretation Code [facility] Comment on above: Performed By: #### 1 [id number] #### [facility] Laboratory [address] [place] [address] ABSCon 02-12-2024 ABSC Gel Interp Negative Normal [facility] Comment on above: Performed By: #### 1 [id number] #### [facility] Laboratory [address] [place] [address] BMPon 02-12-2024 Anion gap [Moles/Vol] 12 mmol/L Normal 6-16 [facility] Comment on above: Performed By: #### 2 [id number] #### [facility] Laboratory [address] [place] [address] Calcium [Mass/Vol] 8.1 mg/dL Low 8.9-11.1 [facility] Comment on above: Performed By: #### 2 [id number] #### [facility] Laboratory [address] [place] [address] Chloride [Moles/Vol] 102 mmol/L Normal 101-111 [facility] Comment on above: Performed By: #### 2 [id number] #### [facility] Laboratory [address] [place] [address] CO2 [Moles/Vol] 26 mmol/L Normal 21-31 [facility] Comment on above: Performed By: #### 2 [id number] #### [facility] Laboratory [address] [place] [address] Creatinine [Mass/Vol] 1.5 mg/dL High 0.5-1.3 [facility] Comment on above: Performed By: #### 2 [id number] #### [facility] Laboratory [address] [place] [address] Glucose [Mass/Vol] 274 mg/dL High 55-199 [facility] Comment on above: Performed By: #### 2 [id number] #### [facility] Laboratory [address] [place] [address] Potassium [Moles/Vol] 4.5 mmol/L Normal 3.5-5.3 [facility] Comment on above: Performed By: #### 2 [id number] #### [facility] Laboratory [address] [place] [address] Sodium [Moles/Vol] 135 mmol/L Normal 135-145 [facility] Comment on above: Performed By: #### 2 [id number] #### [facility] Laboratory [address] [place] [address] Urea nitrogen [Mass/Vol] 16 mg/dL Normal 5-21 [facility] Comment on above: Performed By: #### 2 [id number] #### [facility] Laboratory [address] [place] [address] Urea nitrogen/Creatinine [Mass ratio] 11 No Units Normal 10-20 [facility] Comment on above: Performed By: #### 2 [id number] #### [facility] Laboratory [address] [place] [address] Blood Bank ID#on 02-12-2024 BBID# [id number] Invalid Interpretation Code [facility] Comment on above: Performed By: #### 1 [id number] #### [facility] Laboratory [address] [place] [address] CBC w/Indiceson 02-12-2024 Erythrocyte distribution width (RBC) [Ratio] 18.5 % High 10.9-14.2 [facility] Comment on above: Performed By: #### 2 [id number] #### [facility] Laboratory [address] [place] [address] Hematocrit (Bld) [Volume fraction] 23.5 % Low 37.7-49.0 [facility] Comment on above: Performed By: #### 2 [id number] #### [facility] Laboratory [address] [place] [address] Hemoglobin (Bld) [Mass/Vol] 7.2 g/dL Low 13.5-17.5 [facility] Comment on above: Performed By: #### 2 [id number] #### [facility] Laboratory [address] [place] [address] Hypochromia Auto Ql (Bld) PRESENT Invalid Interpretation Code [facility] Comment on above: Performed By: #### 2 [id number] #### [facility] Laboratory [address] [place] [address] MCH (RBC) [Entitic mass] 21.1 pg Low 27.0-34.0 [facility] Comment on above: Performed By: #### 2 [id number] #### [facility] Laboratory [address] [place] [address] MCHC (RBC) [Mass/Vol] 30.7 g/dL Low 31.4-36.0 [facility] Comment on above: Performed By: #### 2 [id number] #### [facility] Laboratory [address] [place] [address] MCV (RBC) [Entitic vol] 68.8 fL Low 80.0-100.0 [facility] Comment on above: Performed By: #### 2 [id number] #### [facility] Laboratory [address] [place] [address] Microcytes Ql (Bld) PRESENT Invalid Interpretation Code [facility] Comment on above: Performed By: #### 2 [id number] #### [facility] Laboratory [address] [place] [address] Platelet mean volume (Bld) [Entitic vol] 8.0 fL Normal 6.4-10.8 [facility] Comment on above: Performed By: #### 2 [id number] #### [facility] Laboratory [address] [place] [address] Platelets (Bld) [#/Vol] 244.0 E9/L Normal 150.0-500. 0 [facility] Comment on above: Performed By: #### 2 [id number] #### [facility] Laboratory [address] [place] [address] Polychromasia LM Ql (Bld) PRESENT Invalid Interpretation Code [facility] Comment on above: Performed By: #### 2 [id number] #### [facility] Laboratory [address] [place] [address] RBC (Bld) [#/Vol] 3.4 E12/L Low 4.3-5.9 [facility] Comment on above: Performed By: #### 2 [id number] #### [facility] Laboratory [address] [place] [address] RBC size Nom (Bld) NORMAL Invalid Interpretation Code [facility] Comment on above: Performed By: #### 2 [id number] #### [facility] Laboratory [address] [place] [address] Target cells LM Ql (Bld) PRESENT Invalid Interpretation Code [facility] Comment on above: Performed By: #### 2 [id number] #### [facility] Laboratory [address] [place] [address] WBC corrected for nucl RBC Auto (Bld) [#/Vol] 14.7 E9/L High 4.0-11.0 [facility] Comment on above: Performed By: #### 2 [id number] #### [facility] Laboratory [address] [place] [address] Capillary Glucose POCon Glucose [Mass/Vol] 441 mg/dL High 55-99 [facility] Comment on above: Result Comment: Deon hathaway RN/ Performed By: #### 2 [id number] #### [facility] Laboratory [address] [place] [address] Glucose [Mass/Vol] mg/dL Abnormal 55-99 [facility] Comment on above: Result Comment: Deon ETIENNE Performed By: #### 2 [id number] #### [facility] Laboratory [address] [place] [address] Glucose [Mass/Vol] mg/dL Abnormal 55-99 [facility] Comment on above: Result Comment: Deon hathaway RN/ Performed By: #### 2 [id number] #### [facility] Laboratory [address] [place] [address] Glucose [Mass/Vol] 259 mg/dL High 55-99 [facility] Comment on above: Result Comment: Repe at Test Performed By: #### 2 [id number] #### [facility] Laboratory [address] [place] [address] Glucose [Mass/Vol] 205 mg/dL High 55-99 [facility] Comment on above: Result Comment: Deon hathaway RN/ Performed By: #### 2 [id number] #### [facility] Laboratory [address] [place] [address] Glucoseon 02-12-2024 Glucose [Mass/Vol] 580 mg/dL Abnormal 55-199 [facility] Comment on above: Result Comment: Crit ical Result Verified by Repeat Analysis Critical Result [id number] Called to and read back by: CECI WELSH at: 02/12/2024 21:01:57 by:BRAVO Performed By: #### 2 [id number] #### [facility] Laboratory [address] [place] [address] Hct & Hgbon 02-12-2024 Hematocrit (Bld) [Volume fraction] 22.7 % Low 37.7-49.0 [facility] Comment on above: Performed By: #### 1 [id number] #### [facility] Laboratory [address] [place] [address] Hemoglobin (Bld) [Mass/Vol] 7.3 g/dL Low 13.5-17.5 [facility] Comment on above: Performed By: #### 1 [id number] #### [facility] Laboratory [address] [place] [address] Main OR Intraoperative Recor don 02-12-2024 Main OR Intraoperative Record Main OR Intraoperative Record IntraOp Document Type FT Summary Primary Physician: Padmini Montes MD Finalized Date/Time: 02/12/24 14:48:28 Pt. Name: GASTON CHRISTIAN SOLOMON Aceves/Sex: 1965 Male Med Rec #: [id number] Physician: Padmini Montes MD Financial #: [id number] Pt. Type: A Room/Bed: [place] [address] Admit/Disch: 02/12/24 11:13:26 - Institution: Case Times FT Entry 1 Patient Times In Room 02/12/24 13:26:00 Out Room 02/12/24 14:45:00 Procedure Times Start 02/12/24 13:54:00 Stop 02/12/24 14:36:00 Anesthesia Times Start 02/12/24 13:26:00 Stop 02/12/24 14:45:00 Last Modified By: Sara STERN, Tyree Simmons 02/12/24 14:44:51 Case Attendance FT Entry 1 Entry 2 Entry 3 Case Attendee Lamonte MOON, Alexander Montes MD, Padmini Ruiz RN, Tyree Simmons Role Performed Anesthesiologist Surgeon - Primary Surveillance Systems Analyst - Primary Fiscal Services Manager Time In 02/12/24 13:26:00 02/12/24 13:45:00 02/12/24 13:26:00 Time Out 02/12/24 14:44:00 02/12/24 14:31:00 02/12/24 14:44:00 Procedure KNEE AMPUTATION KNEE AMPUTATION KNEE AMPUTATION BELOW(Right) BELOW(Right) BELOW(Right) Comments , anesthesia supervisor metal placing Last Modified By: Sara STERN, Tyree Ruiz RN, Tyree Mancera RN 02/12/24 14:44:09 02/12/24 14:44:09 02/12/24 14:44:09 Entry 4 Entry 5 Entry 6 Case Attendee Robinson STERN, Jenise Jaquez CST, Radha Corona Role Performed Surveillance Systems Analyst - Primary GIS MANAGER/SA Scrub - Primary Time In 02/12/24 13:26:00 02/12/24 13:26:00 02/12/24 13:26:00 Time Out 02/12/24 14:44:00 02/12/24 14:44:00 02/12/24 14:44:00 Procedure KNEE AMPUTATION KNEE AMPUTATION KNEE AMPUTATION BELOW(Right) BELOW(Right) BELOW(Right) Comments in orientation Last Modified By: Sara STERN, Tyree Ruiz RN, Tyree Mancera RN 02/12/24 14:44:09 02/12/24 14:44:09 02/12/24 14:44:09 General Comments: Lima Puckett- hydrogen braze furnace operator, observing surgical case. Perioperative Protocols FT Pre-Care Text: Implements protective measures prior to operative or invasive procedure, confirms identity before the operative or invasive procedure, verifies operative procedure, surgical site, and laterality Entry 1 Procedure(s) KNEE AMPUTATION Patient Identity Birthday, Blood Band, BELOW(Right) Verified (select at ID Band Check, Patient least 2): Participation Consents / H and P Anesthesia Consent, Operative Site Present Verified H&P, Surgery/Procedure Marking Verified Consent, Transfusion Consent Surgical Site Yes Laterality Verified Yes Verified Procedure Verified Yes Correct Patient Yes Position Verified Availability Equipment, Medication Prep Dry n/a Verified (If Applicable) PreOp Antibiotic Yes Time Out Alexander Aburto CRNA, Given Participants Padmini Montes MD, Sara STERN, Robinson Gonzalez RN, Leonid Saenz CST, Wolf M, [place], [place] A Time Out Complete 02/12/24 13:53:00 Outcomes Met? Yes Last Modified By: Tyree Ruiz RN 02/12/24 13:54:39 Post-Care Text: The patient is free from signs and symptoms of injury caused by extraneous objects Allergy Information FT Pre-Care Text: Verifies allergies Entry 1 Allergies Reviewed? Yes Allergies Reviewed Self/Patient With Outcomes Met? Yes Last Modified By: Tyree Ruiz RN 02/12/24 12:46:25 Post-Care Text: The patient received appropriate medication(s) safely administered during the perioperative period Surgical Procedures FT Entry 1 Procedure Description Procedure KNEE AMPUTATION BELOW Modifiers Right Surgeon Description RIGHT BELOW THE KNEE AMPUTATION Primary Procedure Yes Primary Surgeon Padmini Montes MD Start 02/12/24 13:54:00 Stop 02/12/24 14:36:00 Anesthesia Type General Surgical Service Vascular Wound Class 4 - Dirty Last Modified By: Tyree Ruiz RN 02/12/24 14:44:21 General Case Data FT Pre-Care Text: Classifies surgical wound, implements aseptic technique, initiates traffic control Entry 1 Case Information OR OR 2 FT Case Level Level 4 Wound Class 4 - Dirty Specialty Vascular ASA Class 4 Preop Diagnosis I70.261-Atherosclerosis Postop Same 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 Postop Diagnosis I70.261-Atherosclerosis Outcomes Met? Yes of [place] arteries of extremities with gangrene, right leg. Last Modified By: Tyree Ruzi RN 02/12/24 14:03:41 Post-Care Text: The patient is free from signs and symptoms of infection Skin Assessment (Pre Procedure) FT Pre-Care Text: Implements protective measures to prevent skin/ tissue injury due to thermal or mechanical sources Evaluates for signs and symptoms of physical injury to skin and tissue Entry 1 Skin Integrity Intact, [place], Warm, & Skin Abnormality No Dry Outcomes Met? Yes Last Modified By: Tyree Ruiz RN 02/12/24 12:50:23 Post-Care Text: The patient is free from signs and symptoms of injury caused by extraneous objects Patient Positioning FT Pre-Ca (more content not included)... Normal [facility] Main OR PACU I Recordon Main OR PACU I Record Main OR PACU I Rec ord PACU Phase I Document Type FT Summary Primary Physician: Padmini Montes MD Finalized Date/Time: 02/12/24 17:14:55 Pt. Name: SOLOMON PICKARD SR/Sex: 1965 Male Med Rec #: [id number] Physician: Padmini Montes MD Financial #: [id number] Pt. Type: A Room/Bed: N309 Admit/Disch: 02/12/24 11:13:26 - Institution: Case Times PACU I FT Pre-Care Text: Identifies barriers to communication and implements measures to provide psychological support Develops individualized plan of care, and ensures continuity of care Maintains patient's dignity and privacy, and maintains patient confidentiality Identifies and reports philosophical, cultural, and spiritual beliefs and values Identifies individual values and wishes concerning care Implements aseptic technique, and administers prescribed antibiotic therapy and immunizing agents as ordered Evaluates postoperative tissue perfusion Implements thermoregulation measures, and monitors body temperature Evaluates postoperative respiratory status Evaluates postoperative cardiac status Evaluates postoperative neurological status Assesses pain control, collaborated in initiating patient-controlled analgesia and implements alternative methods of pain control Verifies allergies, administers prescribed medications and solutions, evaluates response to medications Entry 1 In PACU I 02/12/24 14:46:00 Discharge from PACU 02/12/24 16:15:00 I Outcomes Met? Yes Last Modified By: Lima Bolaños RN 02/12/24 17:14:21 Post-Care Text: The patient demonstrates knowledge of the expected response to the operative or invasive procedure The patient's care is consistent with the individualized perioperative plan of care The patient's right to privacy is maintained The patient's value system, lifestyle, ethnicity, and culture are considered, respected, and incorporated into the perioperative plan of care The patient participates in decisions affecting his or her perioperative plan of care The patient is free from signs and symptoms of infection The patient has wound/tissue perfusion consistent with or improved from baseline levels established preoperatively The patient is at or returning to normothermia at the conclusion of the immediate postoperative period The patient's respiratory function is consistent with or improved from baseline levels established preoperatively The patient's cardiovascular status is consistent with or improved from baseline levels established preoperatively The patient's cardiovascular status is consistent with or improved from baseline levels established preoperatively The patient demonstrates and/or reports adequate pain control throughout the perioperative period The patient received appropriate medication(s), safely administered during the perioperative period Acuity Level PACU I FT Entry 1 Start Time 02/12/24 14:46:00 Stop Time 02/12/24 16:15:00 Acuity Level Acuity Level I Last Modified By: Lima Bolaños RN 02/12/24 17:14:48 Finalized By: Lima Bolaños RN Document Signatures Signed By: Lima Bolaños RN 02/12/24 17:14 [facility] Main OR Preoperative Recordo n 02-12-2024 Main OR Preoperative Record Main OR Preoperative Record PreOp Document Type FT Summary Primary Physician: Padmini Montes MD Finalized Date/Time: 02/12/24 13:26:50 Pt. Name: GASTON CHRISTIAN SOLOMON Navarro./Sex: 1965 Male Med Rec #: [id number] Physician: Padmini Montes MD Financial #: [id number] Pt. Type: A Room/Bed: [facility] Admit/Disch: 02/12/24 11:13:26 - Institution: Case Times PreOp FT Pre-Care Text: Verifies consent for planned procedure, identifies individual values and wishes concerning care, includes family members in perioperative teaching Entry 1 Patient Times. In Pre Surgery 02/12/24 11:20:00 Out Pre Surgery 02/12/24 13:24:00 Outcomes Met? Yes Last Modified By: Tyree Ruiz RN 02/12/24 13:26:47 Post-Care Text: The patient participates in decisions affecting his or her perioperative plan of care Finalized By: Tyree Ruiz RN Document Signatures Signed By: Tyree Ruiz RN 02/12/24 13:26 Normal [facility] PT & PTTon 02-12-2024 aPTT Coag (PPP) [Time] 28.0 second(s) Normal 25.1-36.5 [facility] Comment on above: Result Comment: Para meter 15 days - 4 weeks 1 - 5 months 6 - 11 months 1 - 5 years 6 - 10 years 11 - 17 years PTT Mean: 35.4 (27.6-45.6) Mean: 33.5 (24.8-40.7) Mean: 32.4 (25.1-40.7) Mean: 31.6 (24.0-39.2) Mean: 31.6 (26.9-38.7) Mean: 31.0 (24.6-38.4) Pediatric Reference ranges were obtained from a study by Colby Umana et al. prepared from 1437 samples obtained at 7 different centers using the same coagulation reagent and instrumentation as [facility] [place] [place]. Currently there are no coagulation studies available worldwide for children to 14 days, and no normal ranges. Heparin therapeutic range (represented by Anti-Factor Xa activity of 0.2 - 0.4 U/mL) corresponds to PTT of 56.6 - 109.0 sec. Performed By: #### 1 [id number] #### [facility] Laboratory [address] [place] [address] INR Coag (PPP) [Relative time] 1.12 {INR} Invalid Interpretation Code [facility] Comment on above: Result Comment: INR results are specifically intended to assess patients stabilized on long-term Anticoagulation therapy suggested INR?s ?Less Intensive Anticoagulation? 2.0 ? 3.0 Conventional Range 3.0 ? 4.5 Performed By: #### 1 [id number] #### [facility] Laboratory [address] [place] [address] PT Coag (PPP) [Time] 12.6 second(s) High 9.4-12.5 [facility] Comment on above: Result Comment: 15 d ays - 4 weeks 1 - 5 months 6 -11 months 1 ? 5 years 6 ? 10 years 11 -17 years Mean: 11.2 (9.5 ? 12.6) Mean: 11.0 (9.7 ? 12.8) Mean: 11.0 (9.8 ? 13.0) Mean: 11.3 (9.9 ? 13.4) Mean: 11.7 (10.0 ? 14.6) Mean: 11.8 (10.0 - 14.1) Pediatric Reference ranges were obtained from a study by Colby Umana et al. prepared from 1437 samples obtained at 7 different centers using the same coagulation reagent and instrumentation as [facility] [place] [place]. Currently there are no coagulation studies available worldwide for children to 14 days, and no normal ranges. Performed By: #### 1 [id number] #### [facility] Laboratory [address] [place] [address] eGFRon 02-12-2024 eGFR 53 mL/min/1.73 m2 Low >=59 [facility] Comment on above: Order Comment: Order added by Discern Expert. Performed By: #### 1 [id number] #### [facility] Laboratory [address] [place] [address] Activated partial thrombopla stin time (aPTT) in platelet poor plasma by coagulation aon 02-08-2024 aPTT Coag (PPP) [Time] 25.6 s 22.3-36.2 [facility] Basophils Auto (Bld) [#/Vol] on 02-08-2024 Basophils (Bld) [#/Vol] 0.1 10 3/uL 0.0-0.1 [facility] Basophils/100 WBC Auto (Bld) on 02-08-2024 Basophils/100 WBC (Bld) 0.7 % 0.2-2.0 [facility] Eosinophils/100 WBC Auto (Bl d)on 02-08-2024 Eosinophils/100 WBC (Bld) 3.1 % 0.9-7.0 [facility] Erythrocyte distribution wid th Auto (RBC) [Ratio]on 02-08-2024 Erythrocyte distribution width (RBC) [Ratio] 16.3 % High 11.0-15.0 [facility] Estimated glomerular filtrat ion rate (GFR) non- Americanon 02-08-2024 GFR/1.73 sq M.predicted among non-blacks MDRD (S/P/Bld) [Vol rate/Area] 38 mL/min/{1.73_m2} Low >=60 [facility] Hematocrit Auto (Bld) [Volum e fraction]on 02-08-2024 Hematocrit (Bld) [Volume fraction] 29.8 % Low 42.0-54.0 [facility] Hemoglobin [Mass/volume] in Bloodon 02-08-2024 Hemoglobin (Bld) [Mass/Vol] 9.1 g/dL Low 14.0-18.0 [facility] INR in Platelet poor plasma by Coagulation assayon 02-08-2024 INR Coag (PPP) [Relative time] 1.02 {INR} [facility] Comment on above: DESIRED INR:2.0-3.0 CONDITIONS NOT LISTED BELOW2.5-3.5 FOR PROSTHETIC HEART VALVE REPLACEMENT2.5-3.5 RECURRENT THROMBOSIS Laboratory - Chemistry and C hemistry - challengeon 02-08-2024 Calcium [Mass/Vol] 9.4 mg/dL 8.5-10.1 [facility] Chloride [Moles/Vol] 99 mmol/L 98-107 [facility] CO2 [Moles/Vol] 28.9 mmol/L 21.0-32.0 [facility] Creatinine [Mass/Vol] 1.84 mg/dL High 0.70-1.30 [facility] GFR/1.73 sq M.predicted MDRD (S/P/Bld) [Vol rate/Area] 46 mL/min/{1.73_m2} Low >=60 [facility] Glucose [Mass/Vol] 184 mg/dL High 74-106 [facility] Potassium [Moles/Vol] 4.0 mmol/L 3.5-5.1 [facility] Sodium [Moles/Vol] 138 mmol/L 136-145 [facility] Urea nitrogen [Mass/Vol] 21.0 mg/dL High 7.0-18.0 [facility] Urea nitrogen/Creatinine [Mass ratio] 11.4 mg/mg [facility] Laboratory - Hematology and Cell countson 02-08-2024 Immature granulocytes/100 WBC (Bld) 0.4 % 0.0-0.5 [facility] Leukocytes [#/volume] correc jorge for nucleated erythrocytes in Blood by Automated counon 02-08-2024 WBC corrected for nucl RBC Auto (Bld) [#/Vol] 10.1 10 3/uL 4.0-11.0 [facility] Lymphocytes Auto (Bld) [#/Vo l]on 02-08-2024 Lymphocytes (Bld) [#/Vol] 1.6 10 3/uL 1.2-3.8 [facility] Lymphocytes/100 WBC Auto (Bl d)on 02-08-2024 Lymphocytes/100 WBC (Bld) 15.6 % Low 20.5-60.0 [facility] MCH Auto (RBC) [Entitic mass ]on 02-08-2024 MCH (RBC) [Entitic mass] 21.9 pg Low 25.9-34.0 [facility] MCHC Auto (RBC) [Mass/Vol]on 02-08-2024 MCHC (RBC) [Mass/Vol] 30.5 g/dL 29.9-35.2 [facility] MCV Auto (RBC) [Entitic vol] on 02-08-2024 MCV (RBC) [Entitic vol] 71.8 fL Low 80.0-94.0 [facility] Monocytes Auto (Bld) [#/Vol] on 02-08-2024 Monocytes (Bld) [#/Vol] 0.8 10 3/uL 0.3-0.8 [facility] Monocytes/100 WBC Auto (Bld) on 02-08-2024 Monocytes/100 WBC (Bld) 7.5 % 1.7-12.0 [facility] Neutrophils Auto (Bld) [#/Vo l]on 02-08-2024 Neutrophils (Bld) [#/Vol] 7.4 10 3/uL High 1.4-6.5 [facility] Neutrophils/100 WBC Auto (Bl d)on 02-08-2024 Neutrophils/100 WBC (Bld) 72.7 % 43.0-75.0 [facility] [facility] No Panel Informationon 02-07 Eosinophils # (Auto) 0.3 10 3/uL 0.0-0.7 [facility] Immature Granulocyte # (Auto) 0.04 10 3/uL High 0.00-0.03 [facility] 11.4 [facility] 0.3 10 3/uL 0.0-0.7 [facility] 21.0 mg/dL High 7.0-18.0 [facility] 9.4 mg/dL 8.5-10.1 [facility] 99 mmol/L 98-107 [facility] 28.9 mmol/L 21.0-32.0 [facility] 0.04 10 3/uL High 0.00-0.03 [facility] 1.84 mg/dL High 0.70-1.30 [facility] 0.4 % 0.0-0.5 [facility] 46 Low >=60 [facility] 184 mg/dL High 74-106 [facility] 4.0 mmol/L 3.5-5.1 [facility] 138 mmol/L 136-145 [facility] Platelet mean volume Auto (B ld) [Entitic vol]on 02-08-2024 Platelet mean volume (Bld) [Entitic vol] 10.7 fL 9.5-13.5 [facility] Platelets Auto (Bld) [#/Vol] on 02-08-2024 Platelets (Bld) [#/Vol] 322 10 3/uL 150-450 [facility] Prothrombin time (PT)on PT Coag (PPP) [Time] 10.8 s 9.0-11.6 [facility] RBC Auto (Bld) [#/Vol]on RBC (Bld) [#/Vol] 4.15 10 6/uL Low 4.70-6.10 [facility] Serum or plasma anion gap de terminationon 02-08-2024 Anion gap [Moles/Vol] 14.1 mmol/L Fi [facility] Activated partial thrombopla stin time (aPTT) in platelet poor plasma by coagulation aon 02-01-2024 aPTT Coag (PPP) [Time] 25.3 s 22.3-36.2 [facility] Basophils Auto (Bld) [#/Vol] on 02-01-2024 Basophils (Bld) [#/Vol] 0.1 10 3/uL 0.0-0.1 [facility] Basophils/100 WBC Auto (Bld) on 02-01-2024 Basophils/100 WBC (Bld) 1.2 % 0.2-2.0 [facility] Eosinophils/100 WBC Auto (Bl d)on 02-01-2024 Eosinophils/100 WBC (Bld) 2.9 % 0.9-7.0 [facility] Erythrocyte distribution wid th Auto (RBC) [Ratio]on 02-01-2024 Erythrocyte distribution width (RBC) [Ratio] 16.4 % High 11.0-15.0 [facility] Estimated glomerular filtrat ion rate (GFR) non- Americanon 02-01-2024 GFR/1.73 sq M.predicted among non-blacks MDRD (S/P/Bld) [Vol rate/Area] 34 mL/min/{1.73_m2} Low >=60 [facility] Hematocrit Auto (Bld) [Volum e fraction]on 02-01-2024 Hematocrit (Bld) [Volume fraction] 28.7 % Low 42.0-54.0 [facility] Hemoglobin [Mass/volume] in Bloodon 02-01-2024 Hemoglobin (Bld) [Mass/Vol] 8.7 g/dL Low 14.0-18.0 [facility] INR in Platelet poor plasma by Coagulation assayon 02-01-2024 INR Coag (PPP) [Relative time] 1.02 {INR} [facility] Comment on above: DESIRED INR:2.0-3.0 CONDITIONS NOT LISTED BELOW2.5-3.5 FOR PROSTHETIC HEART VALVE REPLACEMENT2.5-3.5 RECURRENT THROMBOSIS Laboratory - Chemistry and C hemistry - challengeon 02-01-2024 Calcium [Mass/Vol] 9.0 mg/dL 8.5-10.1 [facility] Chloride [Moles/Vol] 100 mmol/L 98-107 [facility] CO2 [Moles/Vol] 26.7 mmol/L 21.0-32.0 [facility] Creatinine [Mass/Vol] 2.03 mg/dL High 0.70-1.30 [facility] GFR/1.73 sq M.predicted MDRD (S/P/Bld) [Vol rate/Area] 41 mL/min/{1.73_m2} Low >=60 [facility] Glucose [Mass/Vol] 268 mg/dL High 74-106 [facility] Potassium [Moles/Vol] 4.3 mmol/L 3.5-5.1 [facility] Sodium [Moles/Vol] 137 mmol/L 136-145 [facility] Urea nitrogen [Mass/Vol] 25.0 mg/dL High 7.0-18.0 [facility] Urea nitrogen/Creatinine [Mass ratio] 12.3 mg/mg [facility] Laboratory - Hematology and Cell countson 02-01-2024 Immature granulocytes/100 WBC (Bld) 0.7 % High 0.0-0.5 [facility] Leukocytes [#/volume] correc jorge for nucleated erythrocytes in Blood by Automated counon 02-01-2024 WBC corrected for nucl RBC Auto (Bld) [#/Vol] 8.3 10 3/uL 4.0-11.0 [facility] Lymphocytes Auto (Bld) [#/Vo l]on 02-01-2024 Lymphocytes (Bld) [#/Vol] 1.8 10 3/uL 1.2-3.8 [facility] Lymphocytes/100 WBC Auto (Bl d)on 02-01-2024 Lymphocytes/100 WBC (Bld) 21.5 % 20.5-60.0 [facility] MCH Auto (RBC) [Entitic mass ]on 02-01-2024 MCH (RBC) [Entitic mass] 22.3 pg Low 25.9-34.0 [facility] MCHC Auto (RBC) [Mass/Vol]on 02-01-2024 MCHC (RBC) [Mass/Vol] 30.3 g/dL 29.9-35.2 [facility] MCV Auto (RBC) [Entitic vol] on 02-01-2024 MCV (RBC) [Entitic vol] 73.6 fL Low 80.0-94.0 [facility] Monocytes Auto (Bld) [#/Vol] on 02-01-2024 Monocytes (Bld) [#/Vol] 0.7 10 3/uL 0.3-0.8 [facility] Monocytes/100 WBC Auto (Bld) on 02-01-2024 Monocytes/100 WBC (Bld) 8.7 % 1.7-12.0 [facility] Neutrophils Auto (Bld) [#/Vo l]on 02-01-2024 Neutrophils (Bld) [#/Vol] 5.4 10 3/uL 1.4-6.5 [facility] Neutrophils/100 WBC Auto (Bl d)on 02-01-2024 Neutrophils/100 WBC (Bld) 65.0 % 43.0-75.0 [facility] No Panel Informationon 01-31 Eosinophils # (Auto) 0.2 10 3/uL 0.0-0.7 [facility] Immature Granulocyte # (Auto) 0.06 10 3/uL High 0.00-0.03 [facility] 12.3 [facility] 25.0 mg/dL High 7.0-18.0 [facility] 0.2 10 3/uL 0.0-0.7 [facility] 9.0 mg/dL 8.5-10.1 [facility] 100 mmol/L 98-107 [facility] 26.7 mmol/L 21.0-32.0 [facility] 2.03 mg/dL High 0.70-1.30 [facility] 0.06 10 3/uL High 0.00-0.03 [facility] 41 Low >=60 [facility] 0.7 % High 0.0-0.5 [facility] 268 mg/dL High 74-106 [facility] 4.3 mmol/L 3.5-5.1 [facility] 137 mmol/L 136-145 [facility] Platelet mean volume Auto (B ld) [Entitic vol]on 02-01-2024 Platelet mean volume (Bld) [Entitic vol] 10.4 fL 9.5-13.5 [facility] Platelets Auto (Bld) [#/Vol] on 02-01-2024 Platelets (Bld) [#/Vol] 397 10 3/uL 150-450 [facility] Prothrombin time (PT)on 01-04 PT Coag (PPP) [Time] 10.8 s 9.0-11.6 [facility] RBC Auto (Bld) [#/Vol]on RBC (Bld) [#/Vol] 3.90 10 6/uL Low 4.70-6.10 [facility] Serum or plasma anion gap de terminationon 02-01-2024 Anion gap [Moles/Vol] 14.6 mmol/L [facility] Provider Letteron 01-29-2024 Provider Letter Provider Letter January 29, 2024 SOLOMON PICKARD [address] [place] [address] [address] [place] [address] : 1965 Dear Solomon, We have been trying to reach you with no success. You have an appointment with Dr. Yeyo Rowe on February 12, 2024 which will need to be rescheduled since he will be out of the office that afternoon. Please contact the office at the number listed below to get this appointment rescheduled at your earliest convenience. Thank you for your prompt attention to this matter. Sincerely, [facility] [address], [place] [address] Marquise Chatman [facility] TRANSTHORACIC ECHO (TTE) COM Anaya 01-17-2024 TRANSTHORACIC ECHO (TTE) COMPLETE [address], [address], [place] [address] TRANSTHORACIC ECHOCARDIOGRAM REPORT Patient Name: SOLOMON PICKARD Reading Physician: [id number] Bernard De La Cruz MD Study Date: 01/17/2024 Ordering Provider: [id number] BERNARD DE LA CRUZ MRN/PID: [id number] Fellow: Nurse: Date of /Age: 2 1965 / 58 years Audio/Video Technician: Ольга Mars RDCS, T Gender: M Additional Staff: Height: 182.88 cm Admit Date: Weight: 95.71 kg Admission Status: BSA / BMI: 2.18 m2 / 28.62 kg/m2 Department Location: [facility] Blood Pressure: 102 /58 mmHg Study Type: TRANSTHORACIC ECHO (TTE) COMPLETE Diagnosis/ICD: Shortness of breath-R06.02 Indication: CAD, PTCA, COPD, Diabetes, Hyperlipidemia, Former Smoker, Hypotension, Peripheral Vascular Disease, 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 CPT Codes: Echo Complete w Full Doppler-[id number] Study Detail: The following Echo studies were performed: 2D, M-Mode, Doppler and color flow. PHYSICIAN INTERPRETATION: Left Ventricle: The left ventricular systolic function is normal, with a visually estimated ejection fraction of 60-65%. There are no regional wall motion abnormalities. The left ventricular cavity size is normal. Spectral Doppler shows an impaired relaxation pattern of left ventricular diastolic filling. Left Atrium: The left atrium is normal in size. Right Ventricle: The right ventricle is normal in size. There is normal right ventricular global systolic function. Right Atrium: The right atrium is normal in size. Aortic Valve: The aortic valve appears structurally normal. The aortic valve dimensionless index is 0.67. There is no evidence of aortic valve regurgitation. The peak instantaneous gradient of the aortic valve is 11.0 mmHg. The mean gradient of the aortic valve is 6.0 mmHg. Mitral Valve: The mitral valve is normal in structure. There is trace to mild mitral valve regurgitation. Tricuspid Valve: The tricuspid valve is structurally normal. No evidence of tricuspid regurgitation. Pulmonic Valve: The pulmonic valve is structurally normal. There is no indication of pulmonic valve regurgitation. Pericardium: There is no pericardial effusion noted. Aorta: The aortic root is normal. CONCLUSIONS: 1. The left ventricular systolic function is normal, with a visually estimated ejection fraction of 60-65%. 2. Spectral Doppler shows an impaired relaxation pattern of left ventricular diastolic filling. 3. There is normal right ventricular global systolic function. 4. Trace to mild mitral valve regurgitation. 5. No significant changes were noted when compared to previous study. 6. The patient mildly tachycardic throughout the study. QUANTITATIVE DATA SUMMARY: 2D MEASUREMENTS: Normal Ranges: Ao Root d: 3.50 cm (2.0-3.7cm) LAs: 3.50 cm (2.7-4.0cm) RVIDd: 3.16 cm (0.9-3.6cm) IVSd: 1.13 cm (0.6-1.1cm) LVPWd: 1.03 cm (0.6-1.1cm) LVIDd: 4.88 cm (3.9-5.9cm) LVIDs: 3.38 cm LV Mass Index: 89.1 g/m2 LV % FS 30.7 % LV SYSTOLIC FUNCTION BY 2D PLANIMETRY (MOD): Normal Ranges: EF-A4C View: 64 % (>=55%) EF-A2C View: 67 % EF-Biplane: 66 % EF-Visual: 63 % LV EF Reported: 63 % LV DIASTOLIC FUNCTION: Normal Ranges: MV Peak E: 0.94 m/s (0.7-1.2 m/s) MV Peak A: 1.17 m/s (0.42-0.7 m/s) E/A Ratio: 0.80 (1.0-2.2) MV e' 0.103 m/s (>8.0) MV lateral e' 0.13 m/s MV medial e' 0.08 m/s E/e' Ratio: 9.15 (<8.0) MITRAL VALVE: Normal Ranges: MV Vmax: 1.25 m/s (<=1.3m/s) MV peak P.2 mmHg (<5mmHg) MV mean P.0 mmHg (<48mmHg) AORTIC VALVE: Normal Ranges: AoV Vmax: 1.66 m/s (<=1.7m/s) AoV Peak P.0 mmHg (<20mmHg) AoV Mean P.0 mmHg (1.7-11.5mmHg) LVOT Max Palmira: 1.03 m/s (<=1.1m/s) AoV VTI: 24.50 cm (18-25cm) LVOT VTI: 16.50 cm LVOT Diameter: 2.40 cm (1.8-2.4cm) AoV Area, VTI: 3.05 cm2 (2.5-5.5cm2) AoV Area,Vmax: 2.81 cm2 (2.5-4.5cm2) AoV Dimensionless Index: 0.67 PULMONIC VALVE: Normal Ranges: PV Max Palmira: 0.9 m/s (0.6-0.9m/s) PV Max P.3 mmHg [id number] Bernard De La Cruz MD Electronically signed on 01/18/2024 at 11:32:19 AM Final [facility] Operative Reporton Operative Report Operative Report PREOPERATIVE DIAGNOSIS: Right lower extremity critical limb ischemia POSTOPERATIVE DIAGNOSIS: Same SURGERY DATE: 01/08/2024 PREOPERATIVE DIAGNOSIS: POSTOPERATIVE DIAGNOSIS: OPERATION: 1. Ultrasound-guided access and closure of the left common femoral artery 2. Placement of catheter in the abdominal aorta, aortogram, pelvic angiogram 3. Selective right lower extremity angiogram 4. Balloon angioplasty of high-grade stenosis at the distal anastomosis using a 6 mm drug-coated balloon 5. Balloon angioplasty of high-grade stenosis of plantar arch using 2 mm balloon ANESTHESIA: Conscious sedation done under my supervision total of 43 minutes FLUOROSCOPY: Time 11.9 minutes, contrast dye 5 mL, start time 1457, end time 1540, 35 mL of half and half INDICATION: This is a 58-year-old gentleman status post right transmetatarsal amputation. He had multilevel occlusive disease treated with iliofemoral endarterectomy, iliac stenting, and a femoral above-knee popliteal bypass. The wound improved significantly, and then recently there was deterioration in the healing, so we did noninvasive testing and we offered him angiogram and intervention. PROCEDURE: The patient was taken back to the Catheterization Laboratory and placed in supine position. Appropriate cardiopulmonary monitors were set. Anesthesia was induced. Under ultrasound guidance the common femoral artery was accessed using Seldinger maneuver. Conscious sedation was induced and then obtained a micro-access upsized to 5-Mongolian sheath, placed the catheter in the abdominal aorta. Aortogram, pelvic angiogram, CO2 angiogram were done followed by selective right lower extremity angiogram, selected the bypass and obtained an angiogram, and there was high-grade stenosis distal to the anastomosis, and then also there was high-grade stenosis just distal in the plantar arch. A wire was placed all the way down in the plantar arch, and that was treated with a 2 mm balloon and then 6 mm drug-coated balloon for the distal anastomosis. At the end we had excellent flow through a single runoff all the way down to the transmetatarsal amputation stump. It was the posterior tibialis. Access site was closed using Mynx closure. Heparin was given early in the case (7000) and reversed at the end with protamine. The patient tolerated the procedure very well. Padmini Montes M.D. ca Dictated: 01/08/2024 [id number] Transcribed: 01/08/2024 [facility] Comment on above: Result Comment: Elec tronically Signed By: Padmini Montes MD\.br\Date and Time Signed: 01/11/24 18:26 EDT Coding Queryon 01-10-2024 Coding Query Coding Query From: Viviane Azul To: Padmini Montes MD; Cc: Monique Saldivar; Sent: 01/10/2024 14:42:56 EDT ! Subject: Coding Query (Template) CODING COMMUNICATION: _XX_ Procedure information missing: Please document the Pre and Post-Op Diagnosis. Please feel free to contact the coding department with any questions. Thank you! Marybeth Camarillo [facility] BMPon 01-08-2024 Anion gap [Moles/Vol] 13 mmol/L Normal 6-16 [facility] Comment on above: Performed By: #### 2 [id number] #### [facility] Laboratory [address] [place] [address] Calcium [Mass/Vol] 9.1 mg/dL Normal 8.9-11.1 [facility] Comment on above: Performed By: #### 2 [id number] #### [facility] Laboratory [address] [place] [address] Chloride [Moles/Vol] 103 mmol/L Normal 101-111 [facility] Comment on above: Performed By: #### 2 [id number] #### [facility] Laboratory [address] [place] [address] CO2 [Moles/Vol] 25 mmol/L Normal 21-31 [facility] Comment on above: Performed By: #### 2 [id number] #### [facility] [address] [place] [address] Creatinine [Mass/Vol] 1.9 mg/dL High 0.5-1.3 [facility] Comment on above: Performed By: #### 2 [id number] #### [facility] Laboratory [address] [place] [address] Glucose [Mass/Vol] 138 mg/dL Normal 55-199 [facility] Comment on above: Performed By: #### 2 [id number] #### [facility] Laboratory [address] [place] [address] Potassium [Moles/Vol] 4.2 mmol/L Normal 3.5-5.3 [facility] Comment on above: Performed By: #### 2 [id number] #### [facility] Laboratory [address] [place] [address] Sodium [Moles/Vol] 137 mmol/L Normal 135-145 [facility] Comment on above: Performed By: #### 2 [id number] #### [facility] [address] [place] [address] Urea nitrogen [Mass/Vol] 26 mg/dL High 5-21 [facility] Comment on above: Performed By: #### 2 [id number] #### [facility] Laboratory [address] [place] [address] Urea nitrogen/Creatinine [Mass ratio] 14 No Units Normal 10-20 [facility] Comment on above: Performed By: #### 2 [id number] #### [facility] Laboratory [address] [place] [address] CBC w/ Auto Diffon 4 Basophils/100 WBC (Bld) 1.2 % Normal 0.0-2.0 [facility] Comment on above: Performed By: #### 2 [id number] #### [facility] [address] [place] [address] Basophils/Leukocytes Auto (Bld) [Pure # fraction] 0.1 E9/L Normal 0.0-0.2 [facility] Comment on above: Performed By: #### 2 [id number] #### [facility] Laboratory [address] [place] [address] Eosinophils (Bld) [#/Vol] 0.4 E9/L Normal 0.0-0.5 [facility] Comment on above: Performed By: #### 2 [id number] #### [facility] [address] [place] [address] Eosinophils/100 WBC (Bld) 4.3 % Normal 0.0-8.0 [facility] Comment on above: Performed By: #### 2 [id number] #### [facility] Laboratory [address] [place] [address] Erythrocyte distribution width (RBC) [Ratio] 17.3 % High 10.9-14.2 [facility] Comment on above: Performed By: #### 2 [id number] #### [facility] Laboratory [address] [place] [address] Hematocrit (Bld) [Volume fraction] 26.8 % Low 37.7-49.0 [facility] Comment on above: Performed By: #### 2 [id number] #### [facility] Laboratory [address] [place] [address] Hemoglobin (Bld) [Mass/Vol] 8.8 g/dL Low 13.5-17.5 [facility] Comment on above: Performed By: #### 2 [id number] #### [facility] Laboratory [address] [place] [address] Hypochromia Auto Ql (Bld) PRESENT Invalid Interpretation Code [facility] Comment on above: Performed By: #### 2 [id number] #### [facility] [address] [place] [address] Lymphocytes (Bld) [#/Vol] 2.3 E9/L Normal 1.0-4.0 [facility] Comment on above: Performed By: #### 2 [id number] #### [facility] [address] [place] [address] Lymphocytes/100 WBC (Bld) 22.6 % Normal 14.0-50.0 [facility] Comment on above: Performed By: #### 2 [id number] #### [facility] [address] [place] [address] MCH (RBC) [Entitic mass] 24.5 pg Low 27.0-34.0 [facility] Comment on above: Performed By: #### 2 [id number] #### [facility] [address] [place] [address] MCHC (RBC) [Mass/Vol] 33.0 g/dL Normal 31.4-36.0 [facility] Comment on above: Performed By: #### 2 [id number] #### [facility] [address] [place] [address] MCV (RBC) [Entitic vol] 74.2 fL Low 80.0-100.0 [facility] Comment on above: Performed By: #### 2 [id number] #### [facility] [address] [place] [address] Microcytes Ql (Bld) PRESENT Invalid Interpretation Code [facility] Comment on above: Performed By: #### 2 [id number] #### [facility] [address] [place] [address] Monocytes (Bld) [#/Vol] 0.9 E9/L Normal 0.2-1.0 [facility] Comment on above: Performed By: #### 2 [id number] #### [facility] [address] [place] [address] Neutrophils (Bld) [#/Vol] 6.6 E9/L Normal 2.0-7.5 [facility] Comment on above: Performed By: #### 2 [id number] #### [facility] [address] [place] [address] Neutrophils/100 WBC (Bld) 63.4 % Normal 36.0-75.0 [facility] Comment on above: Performed By: #### 2 [id number] #### [facility] [address] [place] [address] Platelet 377.0 E9/L Normal 150.0-500. 0 [facility] Comment on above: Performed By: #### 2 [id number] #### [facility] Laboratory [address] [place] [address] Platelet mean volume (Bld) [Entitic vol] 8.7 fL Normal 6.4-10.8 [facility] Comment on above: Performed By: #### 2 [id number] #### [facility] [address] [place] [address] RBC (Bld) [#/Vol] 3.6 E12/L Low 4.3-5.9 [facility] Comment on above: Performed By: #### 2 [id number] #### [facility] [address] [place] [address] RBC size Nom (Bld) SEE MORPHOLOGY Invalid Interpretation Code [facility] Comment on above: Performed By: #### 2 [id number] #### [facility] [address] [place] [address] WBC corrected for nucl RBC Auto (Bld) [#/Vol] 10.4 E9/L Normal 4.0-11.0 [facility] Comment on above: Performed By: #### 2 [id number] #### [facility] Laboratory [address] [place] [address] Inpatient Clinical Summaryon 01-08-2024 Inpatient Clinical Summary Inpatient Clinical Summary [address] [address] Clinical Summary Person Information: Name: SOLOMON PICKARD SR Age: 58 Years : 1965 Sex: Male PCP: JENARO LYNCH DO Marital Status: Race: White Ethnicity: Non- or Language: Dominican Visit Id: Visit Reason: I70.261 Speciality: Acuity: Enc Type: Ambulatory/Same Day Surgery Med Service: Surgery Arrival: 01/08/2024 11:49:03 Discharge: Dispo Type: Address: [address] [place] [address] [address] [facility] [id number] Provider Notes: Diagnosis: Problems Active Gross hematuria [...] Follow up: With: Address: When: Padmini Montes [address] [place] [id number] Business (1) Comments: Call for followup appointment Type Location Start [facility] Office Visit [facility] [place] [place] 02/12/2024 1:15 PM 02/12/2024 1:30 PM Confirmed Patient Education Information: CV - Cardiovascular PCI Discharge Instructions (CUSTOM) Normal [facility] Inpatient Patient Summaryon 01-08-2024 Inpatient Patient Summary Inpatient Patient Summary [place] [id number] Patient Discharge Instructions PERSON INFORMATION Name: SOLOMON PICKARD SR María Date of : 1965 Current Date: 01/08/2024 16:24:43 PHYSICIANS Admitting Physician: Padmini Montes MD Primary Care Physician: JENARO LNYCH DO PCP Comment: Discharge Diagnosis: Condition at Discharge: Improved SOLOMON PICKARD SR has been given the following list of [...] None Follow up: With: Address: When: Padmini Montes [address] [place] [address] Business (1) Comments: Call for followup appointment In the event that this physician does not participate in your insurance network, please consult with your insurance company to find a nearby participating provider. Type Location Start [facility] Office Visit [facility] [place] [place] 02/12/2024 1:15 PM 02/12/2024 1:30 PM Confirmed Comment: I, SOLOMON PICKARD SR, have received the attached patient education materials/instructions [...] Capsules By (more content not included)... Normal [facility] Interdisciplinary Note - Ayo shannon 01-08-2024 Interdisciplinary Note - Nursing Interdisciplinary Note [...] covered with cast padding and KATHERYN. Normal [facility] eGFRon 01-08-2024 eGFR 40 mL/min/1.73 m2 Low >=59 [facility] [facility] Comment on above: Order Comment: Order added by Discern Expert. Performed By: #### [id number] [facility] [address] [place] [address] Cholesterol in LDL Calc [Mas s/Vol]on 12-31-2023 Cholesterol in LDL [Mass/Vol] 47.0 mg/dL [facility] Comment on above: <100 mg/dl [id number] 0-129 mg/dl NEAR OR ABOVE [id number] mg/dl BORDERLINE [id number] mg/dl HIGH>190 mg/dl VERY HIGH Cholesterol in VLDL Calc [Ma ss/Vol]on 12-31-2023 Cholesterol in VLDL [Mass/Vol] 54.0 mg/dL [facility] Erythrocyte distribution wid th Auto (RBC) [Ratio]on 12-31-2023 Erythrocyte distribution width (RBC) [Ratio] 15.9 % High 11.0-15.0 [facility] Estimated glomerular filtrat ion rate (GFR) non- Americanon 12-31-2023 GFR/1.73 sq M.predicted among non-blacks MDRD (S/P/Bld) [Vol rate/Area] 31 mL/min/{1.73_m2} Low >=60 [facility] Globulin Calc (S) [Mass/Vol] on 12-31-2023 Globulin (S) [Mass/Vol] 3.9 g/dL [facility] Glucose mean value [Mass/vol ume] in Blood Estimated from glycated hemoglobinon 12-31-2023 Average glucose Estimated from glycated hemoglobin (Bld) [Mass/Vol] 163 mg/dL [facility] Hematocrit Auto (Bld) [Volum e fraction]on 12-31-2023 Hematocrit (Bld) [Volume fraction] 25.6 % Low 42.0-54.0 [facility] Hemoglobin [Mass/volume] in Bloodon 12-31-2023 Hemoglobin (Bld) [Mass/Vol] 8.0 g/dL Low 14.0-18.0 [facility] Iron binding capacity [Mass/ volume] in Serum or Plasmaon 12-31-2023 Iron binding capacity [Mass/Vol] 286.0 ug/dL 250.0-450. 0 [facility] Iron saturation [Mass Fracti on] in Serum or Plasmaon 12-31-2023 Iron saturation [Mass fraction] 2.8 % [facility] Laboratory - Chemistry and C hemistry - challengeon 12-31-2023 Cobalamin (Vitamin B12) [Mass/Vol] 156.0 pg/mL Low 193.0-986. 0 [facility] Ferritin [Mass/Vol] 16.0 ng/mL Low 26.0-388.0 [facility] Iron [Mass/Vol] 8.0 ug/dL Low 65.0-175.0 [facility] Transferrin [Mass/Vol] 241 mg/dL 177-329 [facility] Comment on above: Performed at: [facility] [address] [id number] Director: Uriel Borrero PhD, Phone: [phone] Albumin [Mass/Vol] 2.4 g/dL Low 3.4-5.0 [facility] ALP [Catalytic activity/Vol] 172 U/L High 46-116 [facility] ALT [Catalytic activity/Vol] 21 U/L 16-63 [facility] AST [Catalytic activity/Vol] 8 U/L Low 15-37 [facility] Bilirubin [Mass/Vol] 0.2 mg/dL 0.2-1.0 [facility] Calcium [Mass/Vol] 8.4 mg/dL Low 8.5-10.1 [facility] Chloride [Moles/Vol] 98 mmol/L 98-107 [facility] Cholesterol [Mass/Vol] 127 mg/dL <=200 [facility] Cholesterol in HDL [Mass/Vol] 26 mg/dL Low 40-60 [facility] Comment on above: > or =60 mg/dl - LOW CARDIOVASCULAR RISK<40 mg/dl - HIGH CARDIOVASCULAR RISK CO2 [Moles/Vol] 30.5 mmol/L 21.0-32.0 [facility] Creatinine [Mass/Vol] 2.22 mg/dL High 0.70-1.30 [facility] GFR/1.73 sq M.predicted MDRD (S/P/Bld) [Vol rate/Area] 37 mL/min/{1.73_m2} Low >=60 [facility] Glucose [Mass/Vol] 348 mg/dL High 74-106 [facility] Potassium [Moles/Vol] 3.9 mmol/L 3.5-5.1 [facility] Protein [Mass/Vol] 6.3 g/dL Low 6.4-8.2 [facility] Sodium [Moles/Vol] 137 mmol/L 136-145 [facility] Triglyceride [Mass/Vol] 270 mg/dL High <=150 [facility] TSH Qn 3.218 m[IU]/L 0.358-3.74 0 [facility] Urea nitrogen [Mass/Vol] 21.0 mg/dL High 7.0-18.0 [facility] Urea nitrogen/Creatinine [Mass ratio] 9.5 mg/mg [facility] Laboratory - Hematology and Cell countson 12-31-2023 HbA1c (Bld) [Mass fraction] 7.3 % High 4.5-6.2 [facility] Comment on above: ADA RECOMMENDED LIMI T 4.0 - 6.0ADA THERAPEUTIC TARGET < 7.0ACTION SUGGESTED> 7.0 Leukocytes [#/volume] correc jorge for nucleated erythrocytes in Blood by Automated counon 12-31-2023 WBC corrected for nucl RBC Auto (Bld) [#/Vol] 8.1 10 3/uL 4.0-11.0 [facility] MCH Auto (RBC) [Entitic mass ]on 12-31-2023 MCH (RBC) [Entitic mass] 24.3 pg Low 25.9-34.0 [facility] MCHC Auto (RBC) [Mass/Vol]on 12-31-2023 MCHC (RBC) [Mass/Vol] 31.3 g/dL 29.9-35.2 [facility] MCV Auto (RBC) [Entitic vol] on 12-31-2023 MCV (RBC) [Entitic vol] 77.8 fL Low 80.0-94.0 [facility] No Panel Informationon 12-30 Folate 5.6 ng/mL >3.0 [facility] Comment on above: A serum folate vivian ntration of less than 3.1 ng/mL isconsidered to represent clinical deficiency.Performed at: [facility] [id number] Director: Uriel Borrero PhD, Phone: [phone] 5.6 ng/mL >3.0 [facility] 241 mg/dL 177-329 [facility] 156.0 pg/mL Low 193.0-986. 0 [facility] 16.0 ng/mL Low 26.0-388.0 [facility] 8.0 ug/dL Low 65.0-175.0 [facility] Troponin I High Sensitivity 5.8 pg/mL 4.0-76.1 [facility] Comment on above: CUT-OFF POINTS HAVE [...] IN CONJUNCTIONWITH OTHER DIAGNOSTIC AND CLINICAL INFORMATION. 5.8 pg/mL 4.0-76.1 [facility] 3.218 u[iU]/mL 0.358-3.74 0 [facility] 7.3 % High 4.5-6.2 [facility] 127 mg/dL <=200 [facility] 26 mg/dL Low 40-60 [facility] 2.4 g/dL Low 3.4-5.0 [facility] 172 U/L High 46-116 [facility] 270 mg/dL High <=150 [facility] 21 U/L 16-63 [facility] 8 U/L Low 15-37 [facility] 9.5 [facility] 21.0 mg/dL High 7.0-18.0 [facility] 8.4 mg/dL Low 8.5-10.1 [facility] 98 mmol/L 98-107 [facility] 30.5 mmol/L 21.0-32.0 [facility] 2.22 mg/dL High 0.70-1.30 [facility] 37 Low >=60 [facility] 348 mg/dL High 74-106 [facility] 3.9 mmol/L 3.5-5.1 [facility] 137 mmol/L 136-145 [facility] 0.2 mg/dL 0.2-1.0 [facility] 6.3 g/dL Low 6.4-8.2 [facility] Platelet mean volume Auto (B ld) [Entitic vol]on 12-31-2023 Platelet mean volume (Bld) [Entitic vol] 10.4 fL 9.5-13.5 [facility] Platelets Auto (Bld) [#/Vol] on 12-31-2023 Platelets (Bld) [#/Vol] 297 10 3/uL 150-450 [facility] RBC Auto (Bld) [#/Vol]on RBC (Bld) [#/Vol] 3.29 10 6/uL Low 4.70-6.10 [facility] Serum or plasma albumin/glob ulin mass ratioon 12-31-2023 Albumin/Globulin [Mass ratio] 0.6 {ratio} [facility] Serum or plasma anion gap de terminationon 12-31-2023 Anion gap [Moles/Vol] 12.4 mmol/[facility] Serum or plasma total choles terol/high density lipoprotein (HDL) cholesterol mass stone 12-31-2023 Cholesterol.total/Chol esterol in HDL [Mass ratio] 4.9 {ratio} [facility] Comment on above: 3.3 - 4.4 LOW RISK4. 4 - 7.1 AVERAGE RISK7.1 - 11.0 MODERATE RISK>11.0 HIGH RISK Basophils Auto (Bld) [#/Vol] on 12-30-2023 Basophils (Bld) [#/Vol] 0.1 10 3/uL 0.0-0.1 [facility] Basophils/100 WBC Auto (Bld) on 12-30-2023 Basophils/100 WBC (Bld) 0.7 % 0.2-2.0 [facility] Eosinophils/100 WBC Auto (Bl d)on 12-30-2023 Eosinophils/100 WBC (Bld) 2.3 % 0.9-7.0 [facility] Erythrocyte distribution wid th Auto (RBC) [Ratio]on 12-30-2023 Erythrocyte distribution width (RBC) [Ratio] 15.9 % High 11.0-15.0 [facility] Estimated glomerular filtrat ion rate (GFR) non- Americanon 12-30-2023 GFR/1.73 sq M.predicted among non-blacks MDRD (S/P/Bld) [Vol rate/Area] 30 mL/min/{1.73_m2} Low >=60 [facility] Hematocrit Auto (Bld) [Volum e fraction]on 12-30-2023 Hematocrit (Bld) [Volume fraction] 27.1 % Low 42.0-54.0 [facility] Hemoglobin [Mass/volume] in Bloodon 12-30-2023 Hemoglobin (Bld) [Mass/Vol] 8.5 g/dL Low 14.0-18.0 [facility] Laboratory - Chemistry and C hemistry - challengeon 12-30-2023 Calcium [Mass/Vol] 9.2 mg/dL 8.5-10.1 [facility] Chloride [Moles/Vol] 95 mmol/L Low 98-107 [facility] CO2 [Moles/Vol] 27.2 mmol/L 21.0-32.0 [facility] Creatinine [Mass/Vol] 2.23 mg/dL High 0.70-1.30 [facility] GFR/1.73 sq M.predicted MDRD (S/P/Bld) [Vol rate/Area] 37 mL/min/{1.73_m2} Low >=60 [facility] Glucose [Mass/Vol] 193 mg/dL High 74-106 [facility] Potassium [Moles/Vol] 3.6 mmol/L 3.5-5.1 [facility] Sodium [Moles/Vol] 132 mmol/L Low 136-145 [facility] Urea nitrogen [Mass/Vol] 22.0 mg/dL High 7.0-18.0 [facility] Urea nitrogen/Creatinine [Mass ratio] 9.9 mg/mg [facility] Laboratory - Hematology and Cell countson 12-30-2023 Immature granulocytes/100 WBC (Bld) 0.7 % High 0.0-0.5 [facility] Leukocytes [#/volume] correc jorge for nucleated erythrocytes in Blood by Automated counon 12-30-2023 WBC corrected for nucl RBC Auto (Bld) [#/Vol] 10.7 10 3/uL 4.0-11.0 [facility] Lymphocytes Auto (Bld) [#/Vo l]on 12-30-2023 Lymphocytes (Bld) [#/Vol] 2.3 10 3/uL 1.2-3.8 [facility] Lymphocytes/100 WBC Auto (Bl d)on 12-30-2023 Lymphocytes/100 WBC (Bld) 21.5 % 20.5-60.0 [facility] MCH Auto (RBC) [Entitic mass ]on 12-30-2023 MCH (RBC) [Entitic mass] 24.4 pg Low 25.9-34.0 [facility] MCHC Auto (RBC) [Mass/Vol]on 12-30-2023 MCHC (RBC) [Mass/Vol] 31.4 g/dL 29.9-35.2 [facility] MCV Auto (RBC) [Entitic vol] on 12-30-2023 MCV (RBC) [Entitic vol] 77.7 fL Low 80.0-94.0 [facility] Monocytes Auto (Bld) [#/Vol] on 12-30-2023 Monocytes (Bld) [#/Vol] 0.9 10 3/uL High 0.3-0.8 [facility] Monocytes/100 WBC Auto (Bld) on 12-30-2023 Monocytes/100 WBC (Bld) 8.4 % 1.7-12.0 [facility] Neutrophils Auto (Bld) [#/Vo l]on 12-30-2023 Neutrophils (Bld) [#/Vol] 7.1 10 3/uL High 1.4-6.5 [facility] Neutrophils/100 WBC Auto (Bl d)on 12-30-2023 Neutrophils/100 WBC (Bld) 66.4 % 43.0-75.0 [facility] No Panel Informationon 12-29 Troponin I High Sensitivity 5.7 pg/mL 4.0-76.1 [facility] Comment on above: CUT-OFF POINTS HAVE [...] IN CONJUNCTIONWITH OTHER DIAGNOSTIC AND CLINICAL INFORMATION. 5.7 pg/mL 4.0-76.1 [facility] Eosinophils # (Auto) 0.3 10 3/uL 0.0-0.7 [facility] Immature Granulocyte # (Auto) 0.07 10 3/uL High 0.00-0.03 [facility] 9.9 [facility] 22.0 mg/dL High 7.0-18.0 [facility] 0.3 10 3/uL 0.0-0.7 [facility] 9.2 mg/dL 8.5-10.1 [facility] 95 mmol/L Low 98-107 [facility] 27.2 mmol/L 21.0-32.0 [facility] 2.23 mg/dL High 0.70-1.30 [facility] 0.07 10 3/uL High 0.00-0.03 [facility] 37 Low >=60 [facility] 0.7 % High 0.0-0.5 [facility] 193 mg/dL High 74-106 [facility] 3.6 mmol/L 3.5-5.1 [facility] 132 mmol/L Low 136-145 [facility] Platelet mean volume Auto (B ld) [Entitic vol]on 12-30-2023 Platelet mean volume (Bld) [Entitic vol] 10.4 fL 9.5-13.5 [facility] Platelets Auto (Bld) [#/Vol] on 12-30-2023 Platelets (Bld) [#/Vol] 368 10 3/uL 150-450 [facility] RBC Auto (Bld) [#/Vol]on RBC (Bld) [#/Vol] 3.49 10 6/uL Low 4.70-6.10 [facility] Serum or plasma anion gap de terminationon 12-30-2023 Anion gap [Moles/Vol] 13.4 mmol/[facility] Basophils Auto (Bld) [#/Vol] on 12-23-2023 Basophils (Bld) [#/Vol] 0.1 10 3/uL 0.0-0.1 [facility] Basophils/100 WBC Auto (Bld) on 12-23-2023 Basophils/100 WBC (Bld) 0.4 % 0.2-2.0 [facility] Eosinophils/100 WBC Auto (Bl d)on 12-23-2023 Eosinophils/100 WBC (Bld) 1.0 % 0.9-7.0 [facility] Erythrocyte distribution wid th Auto (RBC) [Ratio]on 12-23-2023 Erythrocyte distribution width (RBC) [Ratio] 16.4 % High 11.0-15.0 [facility] Estimated glomerular filtrat ion rate (GFR) non- Americanon 12-23-2023 GFR/1.73 sq M.predicted among non-blacks MDRD (S/P/Bld) [Vol rate/Area] 37 mL/min/{1.73_m2} Low >=60 [facility] Globulin Calc (S) [Mass/Vol] on 12-23-2023 Globulin (S) [Mass/Vol] 3.3 g/dL [facility] Hematocrit Auto (Bld) [Volum e fraction]on 12-23-2023 Hematocrit (Bld) [Volume fraction] 23.6 % Low 42.0-54.0 [facility] Comment on above: RESULTS CALLED TO MARYSE BOUDREAUX RN Hemoglobin [Mass/volume] in Bloodon 12-23-2023 Hemoglobin (Bld) [Mass/Vol] 7.1 g/dL Low 14.0-18.0 [facility] Laboratory - Chemistry and C hemistry - challengeon 12-23-2023 Albumin [Mass/Vol] 2.2 g/dL Low 3.4-5.0 [facility] ALP [Catalytic activity/Vol] 127 U/L High 46-116 [facility] ALT [Catalytic activity/Vol] 13 U/L Low 16-63 [facility] AST [Catalytic activity/Vol] 10 U/L Low 15-37 [facility] Bilirubin [Mass/Vol] 0.2 mg/dL 0.2-1.0 [facility] Calcium [Mass/Vol] 7.4 mg/dL Low 8.5-10.1 [facility] Chloride [Moles/Vol] 103 mmol/L 98-107 [facility] CO2 [Moles/Vol] 23.4 mmol/L 21.0-32.0 [facility] Creatinine [Mass/Vol] 1.88 mg/dL High 0.70-1.30 [facility] GFR/1.73 sq M.predicted MDRD (S/P/Bld) [Vol rate/Area] 45 mL/min/{1.73_m2} Low >=60 [facility] Glucose [Mass/Vol] 357 mg/dL High 74-106 [facility] Magnesium [Mass/Vol] 1.5 mg/dL Low 1.8-2.4 [facility] Potassium [Moles/Vol] 4.4 mmol/L 3.5-5.1 [facility] Protein [Mass/Vol] 5.5 g/dL Low 6.4-8.2 [facility] Sodium [Moles/Vol] 136 mmol/L 136-145 [facility] Urea nitrogen [Mass/Vol] 30.0 mg/dL High 7.0-18.0 [facility] Urea nitrogen/Creatinine [Mass ratio] 16.0 mg/mg [facility] Laboratory - Hematology and Cell countson 12-23-2023 Immature granulocytes/100 WBC (Bld) 0.9 % High 0.0-0.5 [facility] Leukocytes [#/volume] correc jorge for nucleated erythrocytes in Blood by Automated counon 12-23-2023 WBC corrected for nucl RBC Auto (Bld) [#/Vol] 13.3 10 3/uL High 4.0-11.0 [facility] Lymphocytes Auto (Bld) [#/Vo l]on 12-23-2023 Lymphocytes (Bld) [#/Vol] 2.1 10 3/uL 1.2-3.8 [facility] Lymphocytes/100 WBC Auto (Bl d)on 12-23-2023 Lymphocytes/100 WBC (Bld) 15.7 % Low 20.5-60.0 [facility] MCH Auto (RBC) [Entitic mass ]on 12-23-2023 MCH (RBC) [Entitic mass] 25.0 pg Low 25.9-34.0 [facility] MCHC Auto (RBC) [Mass/Vol]on 12-23-2023 MCHC (RBC) [Mass/Vol] 30.1 g/dL 29.9-35.2 [facility] MCV Auto (RBC) [Entitic vol] on 12-23-2023 MCV (RBC) [Entitic vol] 83.1 fL 80.0-94.0 [facility] Monocytes Auto (Bld) [#/Vol] on 12-23-2023 Monocytes (Bld) [#/Vol] 0.6 10 3/uL 0.3-0.8 [facility] Monocytes/100 WBC Auto (Bld) on 12-23-2023 Monocytes/100 WBC (Bld) 4.7 % 1.7-12.0 [facility] Neutrophils Auto (Bld) [#/Vo l]on 12-23-2023 Neutrophils (Bld) [#/Vol] 10.3 10 3/uL High 1.4-6.5 [facility] Neutrophils/100 WBC Auto (Bl d)on 12-23-2023 Neutrophils/100 WBC (Bld) 77.3 % High 43.0-75.0 [facility] No Panel Informationon 12-22 Eosinophils # (Auto) 0.1 10 3/uL 0.0-0.7 [facility] Immature Granulocyte # (Auto) 0.12 10 3/uL High 0.00-0.03 [facility] 1.5 mg/dL Low 1.8-2.4 [facility] 2.2 g/dL Low 3.4-5.0 [facility] 0.1 10 3/uL 0.0-0.7 [facility] 127 U/L High 46-116 [facility] 13 U/L Low 16-63 [facility] 10 U/L Low 15-37 [facility] 16.0 [facility] 0.12 10 3/uL High 0.00-0.03 [facility] 30.0 mg/dL High 7.0-18.0 [facility] 0.9 % High 0.0-0.5 [facility] 7.4 mg/dL Low 8.5-10.1 [facility] 103 mmol/L 98-107 [facility] 23.4 mmol/L 21.0-32.0 [facility] 1.88 mg/dL High 0.70-1.30 [facility] 45 Low >=60 [facility] 357 mg/dL High 74-106 [facility] 4.4 mmol/L 3.5-5.1 [facility] 136 mmol/L 136-145 [facility] 0.2 mg/dL 0.2-1.0 [facility] 5.5 g/dL Low 6.4-8.2 [facility] Platelet mean volume Auto (B ld) [Entitic vol]on 12-23-2023 Platelet mean volume (Bld) [Entitic vol] 10.3 fL 9.5-13.5 [facility] Platelets Auto (Bld) [#/Vol] on 12-23-2023 Platelets (Bld) [#/Vol] 373 10 3/uL 150-450 [facility] RBC Auto (Bld) [#/Vol]on RBC (Bld) [#/Vol] 2.84 10 6/uL Low 4.70-6.10 [facility] Serum or plasma albumin/glob ulin mass ratioon 12-23-2023 Albumin/Globulin [Mass ratio] 0.7 {ratio} [facility] Serum or plasma anion gap de terminationon 12-23-2023 Anion gap [Moles/Vol] 14.0 mmol/L Fi [facility] Basophils Auto (Bld) [#/Vol] on 12-22-2023 Basophils (Bld) [#/Vol] 0.0 10 3/uL 0.0-0.1 [facility] Basophils/100 WBC Auto (Bld) on 12-22-2023 Basophils/100 WBC (Bld) 0.2 % 0.2-2.0 [facility] Eosinophils/100 WBC Auto (Bl d)on 12-22-2023 Eosinophils/100 WBC (Bld) 0.1 % Low 0.9-7.0 [facility] Erythrocyte distribution wid th Auto (RBC) [Ratio]on 12-22-2023 Erythrocyte distribution width (RBC) [Ratio] 16.5 % High 11.0-15.0 [facility] Estimated glomerular filtrat ion rate (GFR) non- Americanon 12-22-2023 GFR/1.73 sq M.predicted among non-blacks MDRD (S/P/Bld) [Vol rate/Area] 23 mL/min/{1.73_m2} Low >=60 [facility] Globulin Calc (S) [Mass/Vol] on 12-22-2023 Globulin (S) [Mass/Vol] 3.8 g/dL [facility] Hematocrit Auto (Bld) [Volum e fraction]on 12-22-2023 Hematocrit (Bld) [Volume fraction] 25.4 % Low 42.0-54.0 [facility] Hemoglobin [Mass/volume] in Bloodon 12-22-2023 Hemoglobin (Bld) [Mass/Vol] 7.6 g/dL Low 14.0-18.0 [facility] Laboratory - Chemistry and C hemistry - challengeon 12-22-2023 Bilirubin Ql (U) Negative NEGATIVE [facility] Glucose (U) [Mass/Vol] mg/dL Abnormal NEGATIVE Fi [facility] Ketones Ql (U) Negative NEGATIVE [facility] pH (U) 6.5 [pH] 5.0-9.0 [facility] Specific gravity (U) [Rel density] <=1.005 Abnormal 1.005-1.02 5 [facility] Urobilinogen Qn (U) 0.2 {Brendan'U}/dL 0.2-1.0 [facility] Calcium [Mass/Vol] 7.2 mg/dL Low 8.5-10.1 [facility] Chloride [Moles/Vol] 95 mmol/L Low 98-107 [facility] CO2 [Moles/Vol] 21.7 mmol/L 21.0-32.0 [facility] Creatinine [Mass/Vol] 2.80 mg/dL High 0.70-1.30 [facility] GFR/1.73 sq M.predicted MDRD (S/P/Bld) [Vol rate/Area] 28 mL/min/{1.73_m2} Low >=60 [facility] Glucose [Mass/Vol] 683 mg/dL High 74-106 [facility] Comment on above: RESULTS CALLED TO Me Faraz Pickard RN Potassium [Moles/Vol] 4.8 mmol/L 3.5-5.1 [facility] Sodium [Moles/Vol] 129 mmol/L Low 136-145 [facility] Urea nitrogen [Mass/Vol] 27.0 mg/dL High 7.0-18.0 [facility] Urea nitrogen/Creatinine [Mass ratio] 9.6 mg/mg [facility] Albumin [Mass/Vol] 2.3 g/dL Low 3.4-5.0 [facility] ALP [Catalytic activity/Vol] 143 U/L High 46-116 [facility] ALT [Catalytic activity/Vol] 15 U/L Low 16-63 [facility] AST [Catalytic activity/Vol] 9 U/L Low 15-37 [facility] Bilirubin [Mass/Vol] 0.2 mg/dL 0.2-1.0 [facility] Magnesium [Mass/Vol] 0.9 mg/dL Low 1.8-2.4 [facility] Comment on above: RESULTS CALLED TO ADEBAYO SANTIAGO RN Natriuretic peptide B (Bld) [Mass/Vol] 322.0 pg/mL <=900.0 [facility] Protein [Mass/Vol] 6.1 g/dL Low 6.4-8.2 [facility] Laboratory - Hematology and Cell countson 12-22-2023 Immature granulocytes/100 WBC (Bld) 0.9 % High 0.0-0.5 [facility] Laboratory - Specimen inform ationon 12-22-2023 Appearance (U) CLEAR CLEAR [facility] Color (U) LT. YELLOW YELLOW [facility] Laboratory - Urinalysison Leukocyte esterase Test strip Ql (U) Negative NEGATIVE [facility] Mucus Ql (Urine sed) NONE SEEN NONE SEEN [facility] Nitrite Ql (U) Negative NEGATIVE [facility] Protein Ql (U) Negative NEG/TRACE [facility] Leukocytes [#/volume] correc jorge for nucleated erythrocytes in Blood by Automated counon 12-22-2023 WBC corrected for nucl RBC Auto (Bld) [#/Vol] 11.7 10 3/uL High 4.0-11.0 [facility] Lymphocytes Auto (Bld) [#/Vo l]on 12-22-2023 Lymphocytes (Bld) [#/Vol] 0.9 10 3/uL Low 1.2-3.8 [facility] Lymphocytes/100 WBC Auto (Bl d)on 12-22-2023 Lymphocytes/100 WBC (Bld) 7.6 % Low 20.5-60.0 [facility] MCH Auto (RBC) [Entitic mass ]on 12-22-2023 MCH (RBC) [Entitic mass] 24.4 pg Low 25.9-34.0 [facility] MCHC Auto (RBC) [Mass/Vol]on 12-22-2023 MCHC (RBC) [Mass/Vol] 29.9 g/dL 29.9-35.2 [facility] MCV Auto (RBC) [Entitic vol] on 12-22-2023 MCV (RBC) [Entitic vol] 81.7 fL 80.0-94.0 [facility] Monocytes Auto (Bld) [#/Vol] on 12-22-2023 Monocytes (Bld) [#/Vol] 0.2 10 3/uL Low 0.3-0.8 [facility] Monocytes/100 WBC Auto (Bld) on 12-22-2023 Monocytes/100 WBC (Bld) 1.4 % Low 1.7-12.0 [facility] Neutrophils Auto (Bld) [#/Vo l]on 12-22-2023 Neutrophils (Bld) [#/Vol] 10.5 10 3/uL High 1.4-6.5 [facility] Neutrophils/100 WBC Auto (Bl d)on 12-22-2023 Neutrophils/100 WBC (Bld) 89.8 % High 43.0-75.0 [facility] No Panel Informationon 12-21 Urine Bacteria NONE SEEN #/HPF NONE SEEN [facility] Urine Occult Blood Negative NEGATIVE [facility] Urine Other Casts NONE SEEN #/LPF NONE SEEN [facility] Urine Other Crystals None Seen #/HPF None Seen [facility] Urine RBC 0-2 #/HPF 0-2 [facility] Urine Squamous Epithelial Cells NONE SEEN #/LPF NONE/RARE [facility] Urine WBC 0-2 #/HPF Abnormal NONE SEEN [facility] NONE SEEN #/LPF NONE/RARE [facility] None Seen #/HPF NONE SEEN [facility] Negative NEG/TRACE [facility] CLEAR CLEAR [facility] LT. YELLOW YELLOW [facility] >=1000 mg/dL Abnormal NEGATIVE [facility] NONE SEEN NONE SEEN [facility] 6.5 5.0-9.0 [facility] 0-2 #/HPF Abnormal NONE SEEN [facility] <=1.005 Abnormal 1.005-1.02 5 [facility] 0.2 EU/dL 0.2-1.0 [facility] 9.6 [facility] 27.0 mg/dL High 7.0-18.0 [facility] 7.2 mg/dL Low 8.5-10.1 [facility] 95 mmol/L Low 98-107 [facility] 21.7 mmol/L 21.0-32.0 [facility] 2.80 mg/dL High 0.70-1.30 [facility] 28 Low >=60 [facility] 683 mg/dL High 74-106 [facility] 4.8 mmol/L 3.5-5.1 [facility] 129 mmol/L Low 136-145 [facility] Eosinophils # (Auto) 0.0 10 3/uL 0.0-0.7 [facility] Immature Granulocyte # (Auto) 0.11 10 3/uL High 0.00-0.03 [facility] Phosphorus Level 2.7 mg/dL 2.6-4.7 [facility] 322.0 pg/mL <=900.0 [facility] 0.9 mg/dL Low 1.8-2.4 [facility] 2.7 mg/dL 2.6-4.7 [facility] 0.0 10 3/uL 0.0-0.7 [facility] 2.3 g/dL Low 3.4-5.0 [facility] 143 U/L High 46-116 [facility] 15 U/L Low 16-63 [facility] 9 U/L Low 15-37 [facility] 0.11 10 3/uL High 0.00-0.03 [facility] 0.9 % High 0.0-0.5 [facility] 0.2 mg/dL 0.2-1.0 [facility] 6.1 g/dL Low 6.4-8.2 [facility] Platelet mean volume Auto (B ld) [Entitic vol]on 12-22-2023 Platelet mean volume (Bld) [Entitic vol] 10.5 fL 9.5-13.5 [facility] Platelets Auto (Bld) [#/Vol] on 12-22-2023 Platelets (Bld) [#/Vol] 400 10 3/uL 150-450 [facility] RBC Auto (Bld) [#/Vol]on RBC (Bld) [#/Vol] 3.11 10 6/uL Low 4.70-6.10 [facility] Serum or plasma albumin/glob ulin mass ratioon 12-22-2023 Albumin/Globulin [Mass ratio] 0.6 {ratio} [facility] Serum or plasma anion gap de terminationon 12-22-2023 Anion gap [Moles/Vol] 17.1 mmol/L Fi [facility] Activated partial thrombopla stin time (aPTT) in platelet poor plasma by coagulation aon 12-21-2023 aPTT Coag (PPP) [Time] 26.6 s 22.3-36.2 Fi [facility] Basophils Auto (Bld) [#/Vol] on 12-21-2023 Basophils (Bld) [#/Vol] 0.1 10 3/uL 0.0-0.1 [facility] Basophils/100 WBC Auto (Bld) on 12-21-2023 Basophils/100 WBC (Bld) 0.8 % 0.2-2.0 [facility] Eosinophils/100 WBC Auto (Bl d)on 12-21-2023 Eosinophils/100 WBC (Bld) 4.2 % 0.9-7.0 [facility] Erythrocyte distribution wid th Auto (RBC) [Ratio]on 12-21-2023 Erythrocyte distribution width (RBC) [Ratio] 16.6 % High 11.0-15.0 [facility] Estimated glomerular filtrat ion rate (GFR) non- Americanon 12-21-2023 GFR/1.73 sq M.predicted among non-blacks MDRD (S/P/Bld) [Vol rate/Area] 23 mL/min/{1.73_m2} Low >=60 [facility] Globulin Calc (S) [Mass/Vol] on 12-21-2023 Globulin (S) [Mass/Vol] 4.0 g/dL [facility] Hematocrit Auto (Bld) [Volum e fraction]on 12-21-2023 Hematocrit (Bld) [Volume fraction] 28.2 % Low 42.0-54.0 [facility] Hemoglobin [Mass/volume] in Bloodon 12-21-2023 Hemoglobin (Bld) [Mass/Vol] 8.6 g/dL Low 14.0-18.0 [facility] INR in Platelet poor plasma by Coagulation assayon 12-21-2023 INR Coag (PPP) [Relative time] 1.05 {INR} [facility] Comment on above: DESIRED INR:2.0-3.0 CONDITIONS NOT LISTED BELOW2.5-3.5 FOR PROSTHETIC HEART VALVE REPLACEMENT2.5-3.5 RECURRENT THROMBOSIS Laboratory - Chemistry and C hemistry - challengeon 12-21-2023 Albumin [Mass/Vol] 2.8 g/dL Low 3.4-5.0 [facility] ALP [Catalytic activity/Vol] 132 U/L High 46-116 [facility] ALT [Catalytic activity/Vol] 13 U/L Low 16-63 [facility] AST [Catalytic activity/Vol] 10 U/L Low 15-37 [facility] Bilirubin [Mass/Vol] 0.3 mg/dL 0.2-1.0 [facility] Calcium [Mass/Vol] 7.8 mg/dL Low 8.5-10.1 [facility] Chloride [Moles/Vol] 99 mmol/L 98-107 [facility] CO2 [Moles/Vol] 29.9 mmol/L 21.0-32.0 [facility] Creatinine [Mass/Vol] 2.79 mg/dL High 0.70-1.30 [facility] GFR/1.73 sq M.predicted MDRD (S/P/Bld) [Vol rate/Area] 29 mL/min/{1.73_m2} Low >=60 [facility] Glucose [Mass/Vol] 56 mg/dL Low 74-106 [facility] Lactate [Moles/Vol] 1.6 mmol/L 0.4-2.0 [facility] Natriuretic peptide B (Bld) [Mass/Vol] 222.0 pg/mL <=900.0 [facility] Potassium [Moles/Vol] 3.3 mmol/L Low 3.5-5.1 [facility] Protein [Mass/Vol] 6.8 g/dL 6.4-8.2 [facility] Sodium [Moles/Vol] 138 mmol/L 136-145 [facility] Urea nitrogen [Mass/Vol] 29.0 mg/dL High 7.0-18.0 [facility] Urea nitrogen/Creatinine [Mass ratio] 10.4 mg/mg [facility] Laboratory - Hematology and Cell countson 12-21-2023 Immature granulocytes/100 WBC (Bld) 1.0 % High 0.0-0.5 [facility] Leukocytes [#/volume] correc jorge for nucleated erythrocytes in Blood by Automated counon 12-21-2023 WBC corrected for nucl RBC Auto (Bld) [#/Vol] 12.6 10 3/uL High 4.0-11.0 [facility] Lymphocytes Auto (Bld) [#/Vo l]on 12-21-2023 Lymphocytes (Bld) [#/Vol] 3.4 10 3/uL 1.2-3.8 [facility] Lymphocytes/100 WBC Auto (Bl d)on 12-21-2023 Lymphocytes/100 WBC (Bld) 26.6 % 20.5-60.0 [facility] MCH Auto (RBC) [Entitic mass ]on 12-21-2023 MCH (RBC) [Entitic mass] 24.7 pg Low 25.9-34.0 [facility] MCHC Auto (RBC) [Mass/Vol]on 12-21-2023 MCHC (RBC) [Mass/Vol] 30.5 g/dL 29.9-35.2 [facility] MCV Auto (RBC) [Entitic vol] on 12-21-2023 MCV (RBC) [Entitic vol] 81.0 fL 80.0-94.0 [facility] Monocytes Auto (Bld) [#/Vol] on 12-21-2023 Monocytes (Bld) [#/Vol] 0.6 10 3/uL 0.3-0.8 [facility] Monocytes/100 WBC Auto (Bld) on 12-21-2023 Monocytes/100 WBC (Bld) 4.9 % 1.7-12.0 [facility] Neutrophils Auto (Bld) [#/Vo l]on 12-21-2023 Neutrophils (Bld) [#/Vol] 7.9 10 3/uL High 1.4-6.5 [facility] Neutrophils/100 WBC Auto (Bl d)on 12-21-2023 Neutrophils/100 WBC (Bld) 62.5 % 43.0-75.0 [facility] No Panel Informationon 12-20 Troponin I High Sensitivity 5.1 pg/mL 4.0-76.1 [facility] Comment on above: CUT-OFF POINTS HAVE [...] IN CONJUNCTIONWITH OTHER DIAGNOSTIC AND CLINICAL INFORMATION. 5.1 pg/mL 4.0-76.1 [facility] Eosinophils # (Auto) 0.5 10 3/uL 0.0-0.7 [facility] Immature Granulocyte # (Auto) 0.13 10 3/uL High 0.00-0.03 [facility] Venous Blood Partial Pressure CO2 39.8 mm[Hg] Low 40.0-52.0 [facility] Venous Blood pH 7.448 High 7.330-7.43 0 [facility] 222.0 pg/mL <=900.0 [facility] 1.6 mmol/L 0.4-2.0 [facility] 39.8 mm[Hg] Low 40.0-52.0 [facility] 7.448 High 7.330-7.43 0 [facility] 2.8 g/dL Low 3.4-5.0 [facility] 0.5 10 3/uL 0.0-0.7 [facility] 132 U/L High 46-116 [facility] 13 U/L Low 16-63 [facility] 10 U/L Low 15-37 [facility] 10.4 [facility] 0.13 10 3/uL High 0.00-0.03 [facility] 29.0 mg/dL High 7.0-18.0 [facility] 1.0 % High 0.0-0.5 [facility] 7.8 mg/dL Low 8.5-10.1 [facility] 99 mmol/L 98-107 [facility] 29.9 mmol/L 21.0-32.0 [facility] 2.79 mg/dL High 0.70-1.30 [facility] 29 Low >=60 [facility] 56 mg/dL Low 74-106 [facility] 3.3 mmol/L Low 3.5-5.1 [facility] 138 mmol/L 136-145 [facility] 0.3 mg/dL 0.2-1.0 [facility] 6.8 g/dL 6.4-8.2 [facility] No Panel InformationOrdered By: Марина Flores on 12-21-2023 Blood Culture 2 [facility] Blood Culture 1 [facility] Platelet mean volume Auto (B ld) [Entitic vol]on 12-21-2023 Platelet mean volume (Bld) [Entitic vol] 10.2 fL 9.5-13.5 [facility] Platelets Auto (Bld) [#/Vol] on 12-21-2023 Platelets (Bld) [#/Vol] 502 10 3/uL High 150-450 [facility] Prothrombin time (PT)on 12-03 PT Coag (PPP) [Time] 11.1 s 9.0-11.6 [facility] RBC Auto (Bld) [#/Vol]on RBC (Bld) [#/Vol] 3.48 10 6/uL Low 4.70-6.10 [facility] Serum or plasma albumin/glob ulin mass ratioon 12-21-2023 Albumin/Globulin [Mass ratio] 0.7 {ratio} [facility] Serum or plasma anion gap de terminationon 12-21-2023 Anion gap [Moles/Vol] 12.4 mmol/L [facility] Guy 12-15-2023 L Specimen: [id number] Received: 12/15/23 Status: COLTON Tayler Num: [id number] Spec Type: Surgical Subm Dr: Paula Soto,DPM, MS Tissues: A DIGIT AMPUTATION (RT METATARSAL) Procedures: HE/3, Gross/Micro L4, Decalcification Age/ Patient Sex Location Account Attending Physician Solomon Pickard SR 58/M LABELL [id number] Paula Soto DPM, MS SPEC NUM: [id number] RECD: 12/15/23 STATUS: COLTON NATH NUM: [id number] SHAKIRA: 12/15/[address]: Paula Soto DPM, MS ENTERED: 12/15/[address] [facility] [address]: Aurelio,Lab SPEC TYPE: Surgical DEPT: [...] and submitted following decalcification as follows: Specimen: [id number] Received: 12/15/23 Status: COLTON Tayler Num: [id number] Spec Type: Surgical Subm Dr: Paula Soto DPM, MS Tissues: A DIGIT AMPUTATION (RT METATARSAL) Procedures: , Gross/Micro L4, Decalcification Patient: GastonSolomon María SR [id number] (Continued) Specimen: [id number] Received: 12/15/23 (Continued) Gross Description (Continued) Signed (signature on file) Victor Hugo Sotelo MD 12/20/23 1207 Specimen: [id number] Received: 12/15/23 Status: COLTON Nath Num: [id number] Spec Type: Surgical Subm Dr: Paula Soto DPM, MS Tissues: A DIGIT AMPUTATION (RT METATARSAL) Procedures: , Gross/Micro L4, Decalcification Patient: Solomon Pickard SR [id number] (Continued) Specimen: [id number] Received: 12/15/23 (Continued) Gross Description (Continued) A1: Margin #1 A2: Margins #2, #3 A3: Margins #4, #5 TW Microscopic Description Microscopic examinations are performed supporting the above interpretation CPT Codes 57109, 89589 Specimen: [id number] Received: 12/15/23 Status: COLTON Nath Num: [id number] Spec Type: Surgical Subm Dr: Paula Soto,LINDSEY, MS Tissues: A DIGIT AMPUTATION (RT METATARSAL) Procedures: HE/3, Gross/Micro L4, Decalcification Patient: Solomon Pickard SR [id number] (Continued) Signed (signature on file) Chin-Jerry Sotelo MD 12/20/23 1207 Normal [facility] Basophils Auto (Bld) [#/Vol] on 12-10-2023 Basophils (Bld) [#/Vol] 0.1 10 3/uL 0.0-0.1 [facility] Basophils/100 WBC Auto (Bld) on 12-10-2023 Basophils/100 WBC (Bld) 0.9 % 0.2-2.0 [facility] Eosinophils/100 WBC Auto (Bl d)on 12-10-2023 Eosinophils/100 WBC (Bld) 2.6 % 0.9-7.0 [facility] Erythrocyte distribution wid th Auto (RBC) [Ratio]on 12-10-2023 Erythrocyte distribution width (RBC) [Ratio] 17.7 % High 11.0-15.0 [facility] Estimated glomerular filtrat ion rate (GFR) non- Americanon 12-10-2023 GFR/1.73 sq M.predicted among non-blacks MDRD (S/P/Bld) [Vol rate/Area] 38 mL/min/{1.73_m2} Low >=60 [facility] Globulin Calc (S) [Mass/Vol] on 12-10-2023 Globulin (S) [Mass/Vol] 3.9 g/dL [facility] Hematocrit Auto (Bld) [Volum e fraction]on 12-10-2023 Hematocrit (Bld) [Volume fraction] 34.2 % Low 42.0-54.0 [facility] Hemoglobin [Mass/volume] in Bloodon 12-10-2023 Hemoglobin (Bld) [Mass/Vol] 10.5 g/dL Low 14.0-18.0 [facility] Laboratory - Chemistry and C hemistry - challengeon 12-10-2023 Albumin [Mass/Vol] 2.8 g/dL Low 3.4-5.0 [facility] ALP [Catalytic activity/Vol] 119 U/L High 46-116 [facility] ALT [Catalytic activity/Vol] 11 U/L Low 16-63 [facility] AST [Catalytic activity/Vol] 10 U/L Low 15-37 [facility] Bilirubin [Mass/Vol] 0.4 mg/dL 0.2-1.0 [facility] Calcium [Mass/Vol] 8.4 mg/dL Low 8.5-10.1 [facility] Chloride [Moles/Vol] 101 mmol/L 98-107 [facility] CO2 [Moles/Vol] 27.0 mmol/L 21.0-32.0 [facility] Creatinine [Mass/Vol] 1.83 mg/dL High 0.70-1.30 [facility] GFR/1.73 sq M.predicted MDRD (S/P/Bld) [Vol rate/Area] 46 mL/min/{1.73_m2} Low >=60 [facility] Glucose [Mass/Vol] 113 mg/dL High 74-106 [facility] Potassium [Moles/Vol] 3.3 mmol/L Low 3.5-5.1 [facility] Protein [Mass/Vol] 6.7 g/dL 6.4-8.2 [facility] Sodium [Moles/Vol] 134 mmol/L Low 136-145 [facility] Urea nitrogen [Mass/Vol] 21.0 mg/dL High 7.0-18.0 [facility] Urea nitrogen/Creatinine [Mass ratio] 11.5 mg/mg [facility] Laboratory - Hematology and Cell countson 12-10-2023 Immature granulocytes/100 WBC (Bld) 0.3 % 0.0-0.5 [facility] Leukocytes [#/volume] correc jorge for nucleated erythrocytes in Blood by Automated counon 12-10-2023 WBC corrected for nucl RBC Auto (Bld) [#/Vol] 9.8 10 3/uL 4.0-11.0 [facility] Lymphocytes Auto (Bld) [#/Vo l]on 12-10-2023 Lymphocytes (Bld) [#/Vol] 1.5 10 3/uL 1.2-3.8 [facility] Lymphocytes/100 WBC Auto (Bl d)on 12-10-2023 Lymphocytes/100 WBC (Bld) 15.8 % Low 20.5-60.0 [facility] MCH Auto (RBC) [Entitic mass ]on 12-10-2023 MCH (RBC) [Entitic mass] 25.1 pg Low 25.9-34.0 [facility] MCHC Auto (RBC) [Mass/Vol]on 12-10-2023 MCHC (RBC) [Mass/Vol] 30.7 g/dL 29.9-35.2 [facility] MCV Auto (RBC) [Entitic vol] on 12-10-2023 MCV (RBC) [Entitic vol] 81.6 fL 80.0-94.0 [facility] Monocytes Auto (Bld) [#/Vol] on 12-10-2023 Monocytes (Bld) [#/Vol] 1.2 10 3/uL High 0.3-0.8 [facility] Monocytes/100 WBC Auto (Bld) on 12-10-2023 Monocytes/100 WBC (Bld) 11.9 % 1.7-12.0 [facility] Neutrophils Auto (Bld) [#/Vo l]on 12-10-2023 Neutrophils (Bld) [#/Vol] 6.7 10 3/uL High 1.4-6.5 [facility] Neutrophils/100 WBC Auto (Bl d)on 12-10-2023 Neutrophils/100 WBC (Bld) 68.5 % 43.0-75.0 [facility] No Panel Informationon 12-09 Eosinophils # (Auto) 0.3 10 3/uL 0.0-0.7 [facility] Immature Granulocyte # (Auto) 0.03 10 3/uL 0.00-0.03 [facility] 2.8 g/dL Low 3.4-5.0 [facility] 0.3 10 3/uL 0.0-0.7 [facility] 119 U/L High 46-116 [facility] 11 U/L Low 16-63 [facility] 10 U/L Low 15-37 [facility] 11.5 [facility] 0.03 10 3/uL 0.00-0.03 [facility] 21.0 mg/dL High 7.0-18.0 [facility] 0.3 % 0.0-0.5 [facility] 8.4 mg/dL Low 8.5-10.1 [facility] 101 mmol/L 98-107 [facility] 27.0 mmol/L 21.0-32.0 [facility] 1.83 mg/dL High 0.70-1.30 [facility] 46 Low >=60 [facility] 113 mg/dL High 74-106 [facility] 3.3 mmol/L Low 3.5-5.1 [facility] 134 mmol/L Low 136-145 [facility] 0.4 mg/dL 0.2-1.0 [facility] 6.7 g/dL 6.4-8.2 [facility] Platelet mean volume Auto (B ld) [Entitic vol]on 12-10-2023 Platelet mean volume (Bld) [Entitic vol] 10.2 fL 9.5-13.5 [facility] Platelets Auto (Bld) [#/Vol] on 12-10-2023 Platelets (Bld) [#/Vol] 240 10 3/uL 150-450 [facility] RBC Auto (Bld) [#/Vol]on RBC (Bld) [#/Vol] 4.19 10 6/uL Low 4.70-6.10 [facility] Serum or plasma albumin/glob ulin mass ratioon 12-10-2023 Albumin/Globulin [Mass ratio] 0.7 {ratio} [facility] Serum or plasma anion gap de terminationon 12-10-2023 Anion gap [Moles/Vol] 9.3 mmol/L [facility] Basophils Auto (Bld) [#/Vol] on 12-09-2023 Basophils (Bld) [#/Vol] 0.1 10 3/uL 0.0-0.1 [facility] Basophils/100 WBC Auto (Bld) on 12-09-2023 Basophils/100 WBC (Bld) 1.0 % 0.2-2.0 [facility] Eosinophils/100 WBC Auto (Bl d)on 12-09-2023 Eosinophils/100 WBC (Bld) 1.6 % 0.9-7.0 [facility] Erythrocyte distribution wid th Auto (RBC) [Ratio]on 12-09-2023 Erythrocyte distribution width (RBC) [Ratio] 17.7 % High 11.0-15.0 [facility] Estimated glomerular filtrat ion rate (GFR) non- Americanon 12-09-2023 GFR/1.73 sq M.predicted among non-blacks MDRD (S/P/Bld) [Vol rate/Area] 31 mL/min/{1.73_m2} Low >=60 [facility] Fibrin D-dimer [Presence] in Platelet poor plasma by Latex agglutinationon 12-09-2023 Fibrin D-dimer LA Ql (PPP) 3.76 mg/L FEU High <=0.59 [facility] Comment on above: RESULTS CALLED TO [...] on 12-09-2023 Globulin (S) [Mass/Vol] 4.6 g/dL [facility] Hematocrit Auto (Bld) [Volum e fraction]on 12-09-2023 Hematocrit (Bld) [Volume fraction] 39.2 % Low 42.0-54.0 [facility] Hemoglobin [Mass/volume] in Bloodon 12-09-2023 Hemoglobin (Bld) [Mass/Vol] 12.2 g/dL Low 14.0-18.0 [facility] Laboratory - Chemistry and C hemistry - challengeon 12-09-2023 Lactate [Moles/Vol] 2.9 mmol/L High 0.4-2.0 [facility] Comment on above: RESULTS CALLED TO RM SHARPE RN Bilirubin Ql (U) Negative NEGATIVE [facility] Glucose (U) [Mass/Vol] 500 mg/dL Abnormal [facility] Ketones Ql (U) Negative NEGATIVE [facility] pH (U) 6.5 [pH] 5.0-9.0 [facility] Specific gravity (U) [Rel density] 1.020 1.005-1.02 5 [facility] Urobilinogen Qn (U) 0.2 {Brendan'U}/dL 0.2-1.0 [facility] Albumin [Mass/Vol] 3.5 g/dL 3.4-5.0 [facility] ALP [Catalytic activity/Vol] 141 U/L High 46-116 [facility] ALT [Catalytic activity/Vol] 13 U/L Low 16-63 [facility] AST [Catalytic activity/Vol] 8 U/L Low 15-37 [facility] Bilirubin [Mass/Vol] 0.7 mg/dL 0.2-1.0 [facility] Calcium [Mass/Vol] 9.6 mg/dL 8.5-10.1 [facility] Chloride [Moles/Vol] 99 mmol/L 98-107 [facility] CO2 [Moles/Vol] 21.7 mmol/L 21.0-32.0 [facility] Creatinine [Mass/Vol] 2.17 mg/dL High 0.70-1.30 [facility] GFR/1.73 sq M.predicted MDRD (S/P/Bld) [Vol rate/Area] 38 mL/min/{1.73_m2} Low >=60 [facility] Glucose [Mass/Vol] 191 mg/dL High 74-106 [facility] Magnesium [Mass/Vol] 1.6 mg/dL Low 1.8-2.4 [facility] Potassium [Moles/Vol] 3.8 mmol/L 3.5-5.1 [facility] Protein [Mass/Vol] 8.1 g/dL 6.4-8.2 [facility] Sodium [Moles/Vol] 135 mmol/L Low 136-145 [facility] Urea nitrogen [Mass/Vol] 20.0 mg/dL High 7.0-18.0 [facility] Urea nitrogen/Creatinine [Mass ratio] 9.2 mg/mg [facility] Laboratory - Hematology and Cell countson 12-09-2023 Immature granulocytes/100 WBC (Bld) 0.3 % 0.0-0.5 [facility] Laboratory - Microbiology an d Antimicrobial susceptibilityon 12-09-2023 SARS-CoV-2 (COVID-19) RNA NELLY+probe Ql (Unsp spec) Negative NEGATIVE [facility] Comment on above: This test has [...] inform ationon 12-09-2023 Appearance (U) CLEAR CLEAR [facility] Color (U) YELLOW YELLOW [facility] Laboratory - Urinalysison Leukocyte esterase Test strip Ql (U) Negative NEGATIVE [facility] Nitrite Ql (U) Negative NEGATIVE [facility] Protein Ql (U) Negative NEG/TRACE [facility] Leukocytes [#/volume] correc jorge for nucleated erythrocytes in Blood by Automated counon 12-09-2023 WBC corrected for nucl RBC Auto (Bld) [#/Vol] 9.3 10 3/uL 4.0-11.0 [facility] Lymphocytes Auto (Bld) [#/Vo l]on 12-09-2023 Lymphocytes (Bld) [#/Vol] 1.5 10 3/uL 1.2-3.8 [facility] Lymphocytes/100 WBC Auto (Bl d)on 12-09-2023 Lymphocytes/100 WBC (Bld) 15.7 % Low 20.5-60.0 [facility] MCH Auto (RBC) [Entitic mass ]on 12-09-2023 MCH (RBC) [Entitic mass] 25.6 pg Low 25.9-34.0 [facility] MCHC Auto (RBC) [Mass/Vol]on 12-09-2023 MCHC (RBC) [Mass/Vol] 31.1 g/dL 29.9-35.2 [facility] MCV Auto (RBC) [Entitic vol] on 12-09-2023 MCV (RBC) [Entitic vol] 82.4 fL 80.0-94.0 [facility] Monocytes Auto (Bld) [#/Vol] on 12-09-2023 Monocytes (Bld) [#/Vol] 0.9 10 3/uL High 0.3-0.8 [facility] Monocytes/100 WBC Auto (Bld) on 12-09-2023 Monocytes/100 WBC (Bld) 9.1 % 1.7-12.0 [facility] Neutrophils Auto (Bld) [#/Vo l]on 12-09-2023 Neutrophils (Bld) [#/Vol] 6.7 10 3/uL High 1.4-6.5 [facility] Neutrophils/100 WBC Auto (Bl d)on 12-09-2023 Neutrophils/100 WBC (Bld) 72.3 % 43.0-75.0 [facility] No Panel Informationon 12-08 2.9 mmol/L High 0.4-2.0 [facility] Urine Microscopic Review NO [facility] Urine Occult Blood Negative NEGATIVE [facility] Negative NEG/TRACE [facility] NO [facility] CLEAR CLEAR [facility] YELLOW YELLOW [facility] 500 mg/dL Abnormal NEGATIVE [facility] 6.5 5.0-9.0 [facility] 1.020 1.005-1.02 5 [facility] 0.2 EU/dL 0.2-1.0 [facility] Eosinophils # (Auto) 0.2 10 3/uL 0.0-0.7 [facility] Immature Granulocyte # (Auto) 0.03 10 3/uL 0.00-0.03 [facility] Troponin I High Sensitivity 8.7 pg/mL 4.0-76.1 [facility] Comment on above: CUT-OFF POINTS HAVE [...] IN CONJUNCTIONWITH OTHER DIAGNOSTIC AND CLINICAL INFORMATION. 8.7 pg/mL 4.0-76.1 [facility] 1.6 mg/dL Low 1.8-2.4 [facility] 3.5 g/dL 3.4-5.0 [facility] 0.2 10 3/uL 0.0-0.7 [facility] 141 U/L High 46-116 [facility] 13 U/L Low 16-63 [facility] 8 U/L Low 15-37 [facility] 9.2 [facility] 0.03 10 3/uL 0.00-0.03 [facility] 20.0 mg/dL High 7.0-18.0 [facility] 0.3 % 0.0-0.5 [facility] 9.6 mg/dL 8.5-10.1 [facility] 99 mmol/L 98-107 [facility] 21.7 mmol/L 21.0-32.0 [facility] 2.17 mg/dL High 0.70-1.30 [facility] 38 Low >=60 [facility] 191 mg/dL High 74-106 [facility] 3.8 mmol/L 3.5-5.1 [facility] 135 mmol/L Low 136-145 [facility] 0.7 mg/dL 0.2-1.0 [facility] 8.1 g/dL 6.4-8.2 [facility] Platelet mean volume Auto (B ld) [Entitic vol]on 12-09-2023 Platelet mean volume (Bld) [Entitic vol] 10.7 fL 9.5-13.5 [facility] Platelets Auto (Bld) [#/Vol] on 12-09-2023 Platelets (Bld) [#/Vol] 294 10 3/uL 150-450 [facility] RBC Auto (Bld) [#/Vol]on RBC (Bld) [#/Vol] 4.76 10 6/uL 4.70-6.10 [facility] Serum or plasma albumin/glob ulin mass ratioon 12-09-2023 Albumin/Globulin [Mass ratio] 0.8 {ratio} [facility] Serum or plasma anion gap de terminationon 12-09-2023 Anion gap [Moles/Vol] 18.1 mmol/L [facility] Outside Operativeon 11-28-19 24 Outside Operative [id number]#1.00TIFF Normal [facility] Physician Orderon 11-28-2023 Physician Order [id number]#1.00TIFF Normal [facility] Basophils Auto (Bld) [#/Vol] on 11-26-2023 Basophils (Bld) [#/Vol] 0.1 10 3/uL 0.0-0.1 [facility] Basophils/100 WBC Auto (Bld) on 11-26-2023 Basophils/100 WBC (Bld) 1.1 % 0.2-2.0 [facility] Eosinophils/100 WBC Auto (Bl d)on 11-26-2023 Eosinophils/100 WBC (Bld) 3.5 % 0.9-7.0 [facility] Erythrocyte distribution wid th Auto (RBC) [Ratio]on 11-26-2023 Erythrocyte distribution width (RBC) [Ratio] 20.0 % High 11.0-15.0 [facility] Estimated glomerular filtrat ion rate (GFR) non- Americanon 11-26-2023 GFR/1.73 sq M.predicted among non-blacks MDRD (S/P/Bld) [Vol rate/Area] 41 mL/min/{1.73_m2} Low >=60 [facility] Globulin Calc (S) [Mass/Vol] on 11-26-2023 Globulin (S) [Mass/Vol] 4.2 g/dL [facility] Hematocrit Auto (Bld) [Volum e fraction]on 11-26-2023 Hematocrit (Bld) [Volume fraction] 33.1 % Low 42.0-54.0 [facility] Hemoglobin [Mass/volume] in Bloodon 11-26-2023 Hemoglobin (Bld) [Mass/Vol] 9.8 g/dL Low 14.0-18.0 [facility] Laboratory - Chemistry and C hemistry - challengeon 11-26-2023 Albumin [Mass/Vol] 3.2 g/dL Low 3.4-5.0 [facility] ALP [Catalytic activity/Vol] 143 U/L High 46-116 [facility] ALT [Catalytic activity/Vol] 16 U/L 16-63 [facility] AST [Catalytic activity/Vol] 14 U/L Low 15-37 [facility] Bilirubin [Mass/Vol] 0.5 mg/dL 0.2-1.0 [facility] Calcium [Mass/Vol] 9.1 mg/dL 8.5-10.1 [facility] Chloride [Moles/Vol] 101 mmol/L 98-107 [facility] CO2 [Moles/Vol] 24.2 mmol/L 21.0-32.0 [facility] Creatinine [Mass/Vol] 1.72 mg/dL High 0.70-1.30 [facility] GFR/1.73 sq M.predicted MDRD (S/P/Bld) [Vol rate/Area] 50 mL/min/{1.73_m2} Low >=60 [facility] Glucose [Mass/Vol] 132 mg/dL High 74-106 [facility] Lactate [Moles/Vol] 3.6 mmol/L High 0.4-2.0 [facility] Comment on above: RESULTS CALLED TO DR CROOK/YASMIN Potassium [Moles/Vol] 3.7 mmol/L 3.5-5.1 [facility] Protein [Mass/Vol] 7.4 g/dL 6.4-8.2 [facility] Sodium [Moles/Vol] 138 mmol/L 136-145 [facility] Urea nitrogen [Mass/Vol] 26.0 mg/dL High 7.0-18.0 [facility] Urea nitrogen/Creatinine [Mass ratio] 15.1 mg/mg [facility] Laboratory - Hematology and Cell countson 11-26-2023 ESR (Bld) [Velocity] 96 mm/h High <=20 [facility] Immature granulocytes/100 WBC (Bld) 0.4 % 0.0-0.5 [facility] Leukocytes [#/volume] correc jorge for nucleated erythrocytes in Blood by Automated counon 11-26-2023 WBC corrected for nucl RBC Auto (Bld) [#/Vol] 9.1 10 3/uL 4.0-11.0 [facility] Lymphocytes Auto (Bld) [#/Vo l]on 11-26-2023 Lymphocytes (Bld) [#/Vol] 2.1 10 3/uL 1.2-3.8 [facility] Lymphocytes/100 WBC Auto (Bl d)on 11-26-2023 Lymphocytes/100 WBC (Bld) 23.4 % 20.5-60.0 [facility] MCH Auto (RBC) [Entitic mass ]on 11-26-2023 MCH (RBC) [Entitic mass] 24.8 pg Low 25.9-34.0 [facility] MCHC Auto (RBC) [Mass/Vol]on 11-26-2023 MCHC (RBC) [Mass/Vol] 29.6 g/dL Low 29.9-35.2 [facility] MCV Auto (RBC) [Entitic vol] on 11-26-2023 MCV (RBC) [Entitic vol] 83.8 fL 80.0-94.0 [facility] Monocytes Auto (Bld) [#/Vol] on 11-26-2023 Monocytes (Bld) [#/Vol] 0.8 10 3/uL 0.3-0.8 [facility] Monocytes/100 WBC Auto (Bld) on 11-26-2023 Monocytes/100 WBC (Bld) 8.5 % 1.7-12.0 [facility] Neutrophils Auto (Bld) [#/Vo l]on 11-26-2023 Neutrophils (Bld) [#/Vol] 5.7 10 3/uL 1.4-6.5 [facility] Neutrophils/100 WBC Auto (Bl d)on 11-26-2023 Neutrophils/100 WBC (Bld) 63.1 % 43.0-75.0 [facility] No Panel InformationOrdered By: HERNAN CROOK on 11-26-2023 Blood Culture 2 [facility] Blood Culture 1 [facility] No Panel Informationon 11-25 C-Reactive Protein, Quantitative <0.50 mg/dL <=0.50 [facility] Eosinophils # (Auto) 0.3 10 3/uL 0.0-0.7 [facility] Immature Granulocyte # (Auto) 0.04 10 3/uL High 0.00-0.03 [facility] Platelet mean volume Auto (B ld) [Entitic vol]on 11-26-2023 Platelet mean volume (Bld) [Entitic vol] 10.4 fL 9.5-13.5 [facility] Platelets Auto (Bld) [#/Vol] on 11-26-2023 Platelets (Bld) [#/Vol] 371 10 3/uL 150-450 [facility] RBC Auto (Bld) [#/Vol]on RBC (Bld) [#/Vol] 3.95 10 6/uL Low 4.70-6.10 [facility] Serum or plasma albumin/glob ulin mass ratioon 11-26-2023 Albumin/Globulin [Mass ratio] 0.8 {ratio} [facility] Serum or plasma anion gap de terminationon 11-26-2023 Anion gap [Moles/Vol] 16.5 mmol/L [facility] Progress Note-Physicianon Progress Note-Physician [id number]#1.00TIFF Normal [facility] Basophils Auto (Bld) [#/Vol] on 11-15-2023 Basophils (Bld) [#/Vol] 0.1 10 3/uL 0.0-0.1 [facility] Basophils/100 WBC Auto (Bld) on 11-15-2023 Basophils/100 WBC (Bld) 0.8 % 0.2-2.0 [facility] Eosinophils/100 WBC Auto (Bl d)on 11-15-2023 Eosinophils/100 WBC (Bld) 5.9 % 0.9-7.0 [facility] Erythrocyte distribution wid th Auto (RBC) [Ratio]on 11-15-2023 Erythrocyte distribution width (RBC) [Ratio] 20.6 % High 11.0-15.0 [facility] Estimated glomerular filtrat ion rate (GFR) non- Americanon 11-15-2023 GFR/1.73 sq M.predicted among non-blacks MDRD (S/P/Bld) [Vol rate/Area] 44 mL/min/{1.73_m2} Low >=60 [facility] Globulin Calc (S) [Mass/Vol] on 11-15-2023 Globulin (S) [Mass/Vol] 4.7 g/dL [facility] Hematocrit Auto (Bld) [Volum e fraction]on 11-15-2023 Hematocrit (Bld) [Volume fraction] 27.6 % Low 42.0-54.0 [facility] Hemoglobin [Mass/volume] in Bloodon 06-12-2024 Hemoglobin (Bld) [Mass/Vol] 8.5 g/dL Low 14.0-18.0 [facility] Laboratory - Chemistry and C hemistry - challengeon 11-15-2023 Albumin [Mass/Vol] 2.4 g/dL Low 3.4-5.0 [facility] ALP [Catalytic activity/Vol] 194 U/L High 46-116 [facility] ALT [Catalytic activity/Vol] 22 U/L 16-63 [facility] AST [Catalytic activity/Vol] 25 U/L 15-37 [facility] Bilirubin [Mass/Vol] 0.9 mg/dL 0.2-1.0 [facility] Calcium [Mass/Vol] 8.9 mg/dL 8.5-10.1 [facility] Chloride [Moles/Vol] 97 mmol/L Low 98-107 [facility] CO2 [Moles/Vol] 26.6 mmol/L 21.0-32.0 [facility] Creatinine [Mass/Vol] 1.63 mg/dL High 0.70-1.30 [facility] GFR/1.73 sq M.predicted MDRD (S/P/Bld) [Vol rate/Area] 53 mL/min/{1.73_m2} Low >=60 [facility] Glucose [Mass/Vol] 226 mg/dL High 74-106 [facility] Lactate [Moles/Vol] 1.4 mmol/L 0.4-2.0 [facility] Potassium [Moles/Vol] 4.1 mmol/L 3.5-5.1 [facility] Protein [Mass/Vol] 7.1 g/dL 6.4-8.2 [facility] Sodium [Moles/Vol] 135 mmol/L Low 136-145 [facility] Urea nitrogen [Mass/Vol] 24.0 mg/dL High 7.0-18.0 [facility] Urea nitrogen/Creatinine [Mass ratio] 14.7 mg/mg [facility] Laboratory - Hematology and Cell countson 11-15-2023 Immature granulocytes/100 WBC (Bld) 0.6 % High 0.0-0.5 [facility] Leukocytes [#/volume] correc jorge for nucleated erythrocytes in Blood by Automated counon 11-15-2023 WBC corrected for nucl RBC Auto (Bld) [#/Vol] 9.5 10 3/uL 4.0-11.0 [facility] Lymphocytes Auto (Bld) [#/Vo l]on 11-15-2023 Lymphocytes (Bld) [#/Vol] 1.3 10 3/uL 1.2-3.8 [facility] Lymphocytes/100 WBC Auto (Bl d)on 11-15-2023 Lymphocytes/100 WBC (Bld) 14.1 % Low 20.5-60.0 [facility] MCH Auto (RBC) [Entitic mass ]on 11-15-2023 MCH (RBC) [Entitic mass] 24.9 pg Low 25.9-34.0 [facility] MCHC Auto (RBC) [Mass/Vol]on 11-15-2023 MCHC (RBC) [Mass/Vol] 30.8 g/dL 29.9-35.2 [facility] MCV Auto (RBC) [Entitic vol] on 11-15-2023 MCV (RBC) [Entitic vol] 80.9 fL 80.0-94.0 [facility] Monocytes Auto (Bld) [#/Vol] on 11-15-2023 Monocytes (Bld) [#/Vol] 1.1 10 3/uL High 0.3-0.8 [facility] Monocytes/100 WBC Auto (Bld) on 11-15-2023 Monocytes/100 WBC (Bld) 11.9 % 1.7-12.0 [facility] Neutrophils Auto (Bld) [#/Vo l]on 11-15-2023 Neutrophils (Bld) [#/Vol] 6.4 10 3/uL 1.4-6.5 [facility] Neutrophils/100 WBC Auto (Bl d)on 11-15-2023 Neutrophils/100 WBC (Bld) 66.7 % 43.0-75.0 [facility] No Panel InformationOrdered By: Fely Marker on 11-15-2023 Blood Culture 2 [facility] Blood Culture 1 [facility] No Panel Informationon 11-14 Eosinophils # (Auto) 0.6 10 3/uL 0.0-0.7 [facility] Immature Granulocyte # (Auto) 0.06 10 3/uL High 0.00-0.03 [facility] Platelet mean volume Auto (B ld) [Entitic vol]on 11-15-2023 Platelet mean volume (Bld) [Entitic vol] 10.8 fL 9.5-13.5 [facility] Platelets Auto (Bld) [#/Vol] on 11-15-2023 Platelets (Bld) [#/Vol] 338 10 3/uL 150-450 [facility] RBC Auto (Bld) [#/Vol]on RBC (Bld) [#/Vol] 3.41 10 6/uL Low 4.70-6.10 [facility] Serum or plasma albumin/glob ulin mass ratioon 11-15-2023 Albumin/Globulin [Mass ratio] 0.5 {ratio} [facility] Serum or plasma anion gap de terminationon 11-15-2023 Anion gap [Moles/Vol] 15.5 mmol/L Fi [facility] BASIC METABOLIC PANLon 11-13 Anion gap [Moles/Vol] 10 mmol/L Normal 5-15 [facility] Comment on above: Performed By: #### C KENDALL CANALES, , 2776-06 ####[facility] ([id number])[address], [place] [address] Calcium [Mass/Vol] 8.8 mg/dL Normal 8.5-10.5 [facility] Comment on above: Performed By: #### C KENDALL CANALES, , 2776-06 ####[facility] ([id number])[address], [address], [place] [address] Chloride [Moles/Vol] 99 mmol/L Normal 98-109 [facility] Comment on above: Performed By: #### C ALLY, KENDALL, , 2776-06 ####[facility] ([id number])[address] [address], [place] [address] CO2 [Moles/Vol] 26 mmol/L Normal 22-32 [facility] Comment on above: Performed By: #### C KENDALL CANALES, , 2776-06 ####[facility] ([id number])[address] [address], [place] [address] Creatinine [Mass/Vol] 1.61 mg/dL High 0.60-1.30 [facility] Comment on above: Result Comment: METH OD TRACEABLE TO IDMS STANDARD Performed By: #### C KENDALL CANALES, , 2776-06 ####[facility] ([id number])[address] [address], [place] [address] GFR/1.73 sq M.predicted among non-blacks MDRD (S/P/Bld) [Vol rate/Area] 49 mL/min/{1.73_m2} Low >59 [facility] Comment on above: Result Comment: Reported eGFR is based on the CKD-EPI 2020 equation that does not use a race coefficient. Performed By: #### C ALLY [facility], , 2776-06 ####[facility] ([id number])[address] [address], [place] [address] Glucose [Mass/Vol] 184 mg/dL High 65-99 [facility] Comment on above: Performed By: #### C KENDALL CANALES, , 2776-06 ####[facility] ([id number])[address] [address], [place] [address] Potassium [Moles/Vol] 4.0 mmol/L Normal 3.5-5.0 [facility] Comment on above: Performed By: #### KENDALL AHUJA, , 2776-06 ####[facility] ([id number])[address] [address], [place] [address] Sodium [Moles/Vol] 135 mmol/L Normal 134-146 [facility] Comment on above: Performed By: #### Snehal CANALES [facility], , 2776-06 ####[facility] ([id number])[address] [address] Urea nitrogen [Mass/Vol] 23 mg/dL Normal 5-23 [facility] Comment on above: Performed By: #### Snehal CANALES [facility], , 2776-06 ####[facility] ([id number])[address] [address] COMPLETE BLOOD COUNTon 11-13 Erythrocyte distribution width (RBC) [Ratio] 22.8 % High 11.5-15.0 [facility] Comment on above: Performed By: #### Snehal CANALES [facility], , 2776-06 ####[facility] ([id number])[address] [address] Hematocrit (Bld) [Volume fraction] 25.1 % Low 39-49 [facility] Comment on above: Performed By: #### Snehal CANALES [facility], , 2776-06 ####[facility] ([id number])[address] [address] Hemoglobin (Bld) [Mass/Vol] 8.1 g/dL Low 13.0-17.0 [facility] Comment on above: Performed By: #### Snehal CANALES [facility], , 2776-06 ####[facility] ([id number])[address] [address] MCH (RBC) [Entitic mass] 25.1 pg Low 27-34 [facility] Comment on above: Performed By: #### KENDALL AHUJA, , 2776-06 ####[facility] ([id number])[address] [address] [address] MCHC (RBC) [Mass/Vol] 32.4 g/dL Normal 32-36 [facility] Comment on above: Performed By: #### Snehal CANALES, KENDALL, , 2776-06 ####[facility] ([id number])[address] [address] MCV (RBC) [Entitic vol] 77 fL Low 80-100 [facility] Comment on above: Performed By: #### Snehal CANALES, KENDALL, , 2776-06 ####[facility] ([id number])[address] [address] Platelet mean volume (Bld) [Entitic vol] 8.8 fL Normal 7-12 [facility] Comment on above: Performed By: #### Snehal CANALES, KENDALL, , 2776-06 ####[facility] ([id number])[address] [address] [address] Platelets (Bld) [#/Vol] 232 10*3/uL Normal 150-450 [facility] Comment on above: Performed By: #### Snehal CANALES, BMP, , 2776-06 ####[facility] ([id number])[address] [address] RBC COUNT 3.25 X10E12/L Low 4.10-5.70 [facility] Comment on above: Performed By: #### Snehal CANALES, KENDALL, , 2776-06 ####[facility] ([id number])[address] [address] [address] WBC (Bld) [#/Vol] 8.4 10*3/uL Normal 4.0-11.0 [facility] Comment on above: Performed By: #### Snehal CANALES, BMP, , 2776-06 ####[facility] ([id number])[address], [place] [address] Glucose Glucometer (BldC) [M ass/Vol]on 11-14-2023 Glucose [Mass/Vol] 173 mg/dL High 65-99 [facility] Glucose [Mass/Vol] 279 mg/dL High 65-99 [facility] Glucose [Mass/Vol] 249 mg/dL High 65-99 [facility] MAGNESIUMon 11-14-2023 Magnesium [Mass/Vol] 2.1 mg/dL Normal 1.8-2.6 [facility] Comment on above: Performed By: #### 1 9123-9 ####[facility] ([id number])[address], [place] [address] Magnesium [Mass/Vol] mg/dL Critically low 1.8-2.6 [facility] Comment on above: Performed By: #### 1 9123-9 ####[facility] ([id number])[address], [place] [address] Magnesium [Mass/Vol] 1.7 mg/dL Low 1.8-2.6 [facility] Comment on above: Performed By: #### KENDALL AHUJA, , 2777-1 ####[facility] ([id number])[address], [place] [address] PHOSPHORUSon 11-14-2023 Phosphate [Mass/Vol] 3.6 mg/dL Normal 2.4-4.9 [facility] Comment on above: Performed By: #### KENDALL AHUJA, , 2777-1 ####[facility] ([id number])[address] [address] BASIC METABOLIC PANLon 11-12 Anion gap [Moles/Vol] 10 mmol/L Normal 5-15 [facility] Comment on above: Performed By: #### C KENDALL CANALES, , 2776-06 ####[facility] ([id number])[address] [address], [place] [address] Calcium [Mass/Vol] 8.9 mg/dL Normal 8.5-10.5 [facility] Comment on above: Performed By: #### C ALLY, [facility], , 2776-06 ####[facility] ([id number])[address] [address] Chloride [Moles/Vol] 98 mmol/L Normal 98-109 [facility] Comment on above: Performed By: #### Snehal CANALES, [facility], , 2776-06 ####[facility] ([id number])[address] [address] CO2 [Moles/Vol] 27 mmol/L Normal 22-32 [facility] Comment on above: Performed By: #### Snehal CANALES, [facility], , 2776-06 ####[facility] ([id number])[address] [address] Creatinine [Mass/Vol] 1.47 mg/dL High 0.60-1.30 [facility] Comment on above: Result Comment: METH OD TRACEABLE TO IDMS STANDARD Performed By: #### Snehal CANALES, [facility], , 2776-06 ####[facility] ([id number])[address] [address] GFR/1.73 sq M.predicted among non-blacks MDRD (S/P/Bld) [Vol rate/Area] 55 mL/min/{1.73_m2} Low >59 [facility] Comment on above: Result Comment: Reported eGFR is based on the CKD-EPI 2020 equation that does not use a race coefficient. Performed By: #### C ALLY, BMP, , 2776-06 ####[facility] ([id number])[address] [address] Glucose [Mass/Vol] 164 mg/dL High 65-99 [facility] Comment on above: Performed By: #### C KENDALL CANALES, , 2776-06 ####[facility] ([id number])[address], [place] [address] Potassium [Moles/Vol] 3.8 mmol/L Normal 3.5-5.0 [facility] Comment on above: Performed By: #### C ALLY, [facility], , 2776-06 ####[facility] ([id number])[address] [address] Sodium [Moles/Vol] 135 mmol/L Normal 134-146 [facility] Comment on above: Performed By: #### Snehal CANALES [facility], , 2776-06 ####[facility] ([id number])[address], [place] [address] Urea nitrogen [Mass/Vol] 26 mg/dL High 5-23 [facility] Comment on above: Performed By: #### KENDALL AHUJA, , 2776-06 ####[facility] ([id number])[address] [address], [place] [address] COMPLETE BLOOD COUNTon 11-12 Erythrocyte distribution width (RBC) [Ratio] 23.2 % High 11.5-15.0 [facility] Comment on above: Performed By: #### KENDALL AHUJA, , 2776-06 ####[facility] ([id number])[address], [place] [address] Hematocrit (Bld) [Volume fraction] 24.7 % Low 39-49 [facility] Comment on above: Performed By: #### KENDALL AHUJA, , 2776-06 ####[facility] ([id number])[address], [place] [address] Hemoglobin (Bld) [Mass/Vol] 8.2 g/dL Low 13.0-17.0 [facility] Comment on above: Performed By: #### C ALLY, BMP, , 2776-06 ####[facility] ([id number])[address], [place] [address] MCH (RBC) [Entitic mass] 25.7 pg Low 27-34 [facility] Comment on above: Performed By: #### Snehal CANALES, BMP, , 2776-06 ####[facility] ([id number])[address], [place] [address] MCHC (RBC) [Mass/Vol] 33.4 g/dL Normal 32-36 [facility] Comment on above: Performed By: #### Snehal CANALES, BMP, , 2776-06 ####[facility] ([id number])[address], [place] [address] MCV (RBC) [Entitic vol] 77 fL Low 80-100 [facility] Comment on above: Performed By: #### KENDALL AHUJA, , 2776-06 ####[facility] ([id number])[address], [place] [address] Platelet mean volume (Bld) [Entitic vol] 8.8 fL Normal 7-12 [facility] Comment on above: Performed By: #### Snehal CANALES, BMP, , 2776-06 ####[facility] ([id number])[address], [address], [place] [address] Platelets (Bld) [#/Vol] 207 10*3/uL Normal 150-450 [facility] Comment on above: Performed By: #### C ALLY BMP, , 2776-06 ####[facility] ([id number])[address], [place] [address] RBC COUNT 3.21 X10E12/L Low 4.10-5.70 [facility] Comment on above: Performed By: #### Snehal CANALES, KENDALL, , 2776-06 ####[facility] ([id number])[address], [address] [place] [address] WBC (Bld) [#/Vol] 8.1 10*3/uL Normal 4.0-11.0 [facility] Comment on above: Performed By: #### KENDALL AHUJA, , 2776-06 ####[facility] ([id number])[address], [address] [place] [address] Glucose Glucometer (BldC) [M ass/Vol]on 11-13-2023 Glucose [Mass/Vol] 230 mg/dL High 65-99 [facility] Glucose [Mass/Vol] 225 mg/dL High 65-99 [facility] Glucose [Mass/Vol] 331 mg/dL High 65-99 [facility] Glucose [Mass/Vol] 190 mg/dL High 65-99 [facility] MAGNESIUMon 11-13-2023 Magnesium [Mass/Vol] 2.1 mg/dL Normal 1.8-2.6 [facility] Comment on above: Performed By: #### C ALLY, KENDALL, , 2776-06 ####[facility] ([id number])[address] [place] [address] PHOSPHORUSon 11-13-2023 Phosphate [Mass/Vol] 3.8 mg/dL Normal 2.4-4.9 [facility] Comment on above: Performed By: #### Snehal CANALES, KENDALL, , 2776-06 ####[facility] ([id number])[address], [address], [place] [address] BASIC METABOLIC PANLon 11-11 Anion gap [Moles/Vol] 11 mmol/L Normal 5-15 [facility] Comment on above: Performed By: #### C ALLY, BMP #### [facility] ([id number]) [address], [address] [place] [address] Calcium [Mass/Vol] 9.0 mg/dL Normal 8.5-10.5 [facility] Comment on above: Performed By: #### C ALLY, BMP #### [facility] ([id number]) [address], [address] [place] [address] Chloride [Moles/Vol] 98 mmol/L Normal 98-109 [facility] Comment on above: Performed By: #### C ALLY, BMP #### [facility] ([id number]) [address] [address] [place] [address] CO2 [Moles/Vol] 25 mmol/L Normal 22-32 [facility] Comment on above: Performed By: #### C ALLY, BMP #### [facility] ([id number]) [address] [address] [place] [address] Creatinine [Mass/Vol] 1.40 mg/dL High 0.60-1.30 [facility] Comment on above: Result Comment: METH OD TRACEABLE TO IDMS STANDARD Performed By: #### C ALLY, BMP #### [facility] ([id number]) [address] [address] [place] [address] GFR/1.73 sq M.predicted among non-blacks MDRD (S/P/Bld) [Vol rate/Area] 58 mL/min/{1.73_m2} Low >59 [facility] Comment on above: Result Comment: Reported eGFR is based on the CKD-EPI 2020 equation that does not use a race coefficient. Performed By: #### C ALLY, BMP #### [facility] ([id number]) [address], [address] [place] [address] Glucose [Mass/Vol] 194 mg/dL High 65-99 [facility] Comment on above: Performed By: #### C ALLY, BMP #### [facility] ([id number]) [address], [address] [place] [address] Potassium [Moles/Vol] 4.0 mmol/L Normal 3.5-5.0 [facility] Comment on above: Performed By: #### C ALLY, BMP #### [facility] ([id number]) [address], [address] [place] [address] Sodium [Moles/Vol] 134 mmol/L Normal 134-146 [facility] Comment on above: Performed By: #### Snehal CANALES, BMP #### [facility] ([id number]) [address] [place] [address] Urea nitrogen [Mass/Vol] 23 mg/dL Normal 5-23 [facility] Comment on above: Performed By: #### Snehal CANALES, BMP #### [facility] ([id number]) [address] [place] [address] COMPLETE BLOOD COUNTon 11-11 Erythrocyte distribution width (RBC) [Ratio] 24.1 % High 11.5-15.0 [facility] Comment on above: Performed By: #### Snehal CANALES, BMP #### [facility] ([id number]) [address] [place] [address] Hematocrit (Bld) [Volume fraction] 25.8 % Low 39-49 [facility] Comment on above: Performed By: #### Snehal CANALES, BMP #### [facility] ([id number]) [address] [place] [address] Hemoglobin (Bld) [Mass/Vol] 8.6 g/dL Low 13.0-17.0 [facility] Comment on above: Performed By: #### C ALLY, BMP #### [facility] ([id number]) [address], [address] [place] [address] MCH (RBC) [Entitic mass] 25.7 pg Low 27-34 [facility] Comment on above: Performed By: #### C ALLY, BMP #### [facility] ([id number]) [address], [address] [place] [address] MCHC (RBC) [Mass/Vol] 33.5 g/dL Normal 32-36 [facility] Comment on above: Performed By: #### C ALLY, BMP #### [facility] ([id number]) [address], [address] [place] [address] MCV (RBC) [Entitic vol] 77 fL Low 80-100 [facility] Comment on above: Performed By: #### C ALLY, BMP #### [facility] ([id number]) [address], [address] [place] [address] Platelet mean volume (Bld) [Entitic vol] 9.2 fL Normal 7-12 [facility] Comment on above: Performed By: #### C ALLY, BMP #### [facility] ([id number]) [address], [address] [place] [address] Platelets (Bld) [#/Vol] 185 10*3/uL Normal 150-450 [facility] Comment on above: Performed By: #### C ALLY, BMP #### [facility] ([id number]) [address], [address] [place] [address] RBC COUNT 3.37 X10E12/L Low 4.10-5.70 [facility] Comment on above: Performed By: #### C ALLY, BMP #### [facility] ([id number]) [address], [address] [place] [address] WBC (Bld) [#/Vol] 10.0 10*3/uL Normal 4.0-11.0 [facility] Comment on above: Performed By: #### Snehal CANALES, BMP #### [facility] ([id number]) [address], [address] [place] [address] Glucose Glucometer (BldC) [M ass/Vol]on 11-12-2023 Glucose [Mass/Vol] 230 mg/dL High 65-99 [facility] Glucose [Mass/Vol] 280 mg/dL High 65-99 [facility] Glucose [Mass/Vol] 268 mg/dL High 65-99 [facility] Glucose [Mass/Vol] 220 mg/dL High 65-99 [facility] Glucose [Mass/Vol] 205 mg/dL High 65-99 [facility] MAGNESIUMon 11-12-2023 Magnesium [Mass/Vol] 1.8 mg/dL Normal 1.8-2.6 [facility] Comment on above: Performed By: #### Snehal CANALES, BMP #### [facility] ([id number]) [address] [place] [address] PHOSPHORUSon 11-12-2023 Phosphate [Mass/Vol] 3.8 mg/dL Normal 2.4-4.9 [facility] Comment on above: Performed By: #### Snehal CANALES, BMP #### [facility] ([id number]) [address] [place] [address] BASIC METABOLIC PANLon 11-10 Anion gap [Moles/Vol] 8 mmol/L Normal 5-15 [facility] Comment on above: Performed By: #### Snehal CANALES, BMP #### [facility] ([id number]) [address], [address] [place] [address] Calcium [Mass/Vol] 8.7 mg/dL Normal 8.5-10.5 [facility] Comment on above: Performed By: #### Snehal CANALES, BMP #### [facility] ([id number]) [address], [address] [place] [address] Chloride [Moles/Vol] 99 mmol/L Normal 98-109 [facility] Comment on above: Performed By: #### C ALLY, BMP #### [facility] ([id number]) [address], [address] [place] [address] CO2 [Moles/Vol] 26 mmol/L Normal 22-32 [facility] Comment on above: Performed By: #### C ALLY, BMP #### [facility] ([id number]) [address], [address] [place] [address] Creatinine [Mass/Vol] 1.45 mg/dL High 0.60-1.30 [facility] Comment on above: Result Comment: METH OD TRACEABLE TO IDMS STANDARD Performed By: #### Snehal CANALES, BMP #### [facility] ([id number]) [address] [place] [address] GFR/1.73 sq M.predicted among non-blacks MDRD (S/P/Bld) [Vol rate/Area] 56 mL/min/{1.73_m2} Low >59 [facility] Comment on above: Result Comment: Reported eGFR is based on the CKD-EPI 2020 equation that does not use a race coefficient. Performed By: #### C ALLY, BMP #### [facility] ([id number]) [address], [address] [place] [address] Glucose [Mass/Vol] 153 mg/dL High 65-99 [facility] Comment on above: Performed By: #### Snehal CANALES, BMP #### [facility] ([id number]) [address], [address] [place] [address] Potassium [Moles/Vol] 3.9 mmol/L Normal 3.5-5.0 [facility] Comment on above: Performed By: #### Snehal CANALES, BMP #### [facility] ([id number]) [address], [address] [place] [address] Sodium [Moles/Vol] 133 mmol/L Low 134-146 [facility] Comment on above: Performed By: #### C BC, BMP #### [facility] ([id number]) [address], [address] [place] [address] Urea nitrogen [Mass/Vol] 27 mg/dL High 5-23 [facility] Comment on above: Performed By: #### C ALLY, BMP #### [facility] ([id number]) [address] [place] [address] COMPLETE BLOOD COUNTon 11-10 Erythrocyte distribution width (RBC) [Ratio] 24.2 % High 11.5-15.0 [facility] Comment on above: Performed By: #### C ALLY, BMP #### [facility] ([id number]) [address] [place] [address] Hematocrit (Bld) [Volume fraction] 25.1 % Low 39-49 [facility] Comment on above: Performed By: #### C ALLY, BMP #### [facility] ([id number]) [address], [address] [place] [address] Hemoglobin (Bld) [Mass/Vol] 8.2 g/dL Low 13.0-17.0 [facility] Comment on above: Performed By: #### C ALLY, BMP #### [facility] ([id number]) [address], [address] [place] [address] MCH (RBC) [Entitic mass] 25.5 pg Low 27-34 [facility] Comment on above: Performed By: #### C ALLY, BMP #### [facility] ([id number]) [address], [address] [place] [address] MCHC (RBC) [Mass/Vol] 32.7 g/dL Normal 32-36 [facility] Comment on above: Performed By: #### C ALLY, BMP #### [facility] ([id number]) [address] [place] [address] MCV (RBC) [Entitic vol] 78 fL Low 80-100 [facility] Comment on above: Performed By: #### Snehal CANALES, BMP #### [facility] ([id number]) [address] [place] [address] Platelet mean volume (Bld) [Entitic vol] 9.0 fL Normal 7-12 [facility] Comment on above: Performed By: #### Snehal CANALES, BMP #### [facility] ([id number]) [address] [place] [address] Platelets (Bld) [#/Vol] 152 10*3/uL Normal 150-450 [facility] Comment on above: Performed By: #### Snehal CANALES, BMP #### [facility] ([id number]) [address] [place] [address] RBC COUNT 3.22 X10E12/L Low 4.10-5.70 [facility] Comment on above: Performed By: #### Snehal CANALES, BMP #### [facility] ([id number]) [address], [address] [place] [address] WBC (Bld) [#/Vol] 9.8 10*3/uL Normal 4.0-11.0 [facility] Comment on above: Performed By: #### Snehal CANALES, BMP #### [facility] ([id number]) [address] [place] [address] Glucose Glucometer (BldC) [M ass/Vol]on 11-11-2023 Glucose [Mass/Vol] 184 mg/dL High 65-99 [facility] Glucose [Mass/Vol] 179 mg/dL High 65-99 [facility] Glucose [Mass/Vol] 222 mg/dL High 65-99 [facility] Glucose [Mass/Vol] 303 mg/dL High 65-99 [facility] MAGNESIUMon 11-11-2023 Magnesium [Mass/Vol] 2.4 mg/dL Normal 1.8-2.6 [facility] Comment on above: Performed By: #### Snehal CANALES BMP #### [facility] ([id number]) [address] [place] [address] Magnesium [Mass/Vol] 1.9 mg/dL Normal 1.8-2.6 [facility] Comment on above: Performed By: #### Snehal CANALES BMP #### [facility] ([id number]) [address] [place] [address] PHOSPHORUSon 11-11-2023 Phosphate [Mass/Vol] 3.2 mg/dL Normal 2.4-4.9 [facility] Comment on above: Performed By: #### Snehal CANALES BMP #### [facility] ([id number]) [address] [place] [address] BASIC METABOLIC PANLon 11-09 Anion gap [Moles/Vol] 6 mmol/L Normal 5-15 [facility] Comment on above: Performed By: #### KENDALL AHUJA, , 2777 ####[facility] ([id number])[address], [place] [address] Calcium [Mass/Vol] 8.5 mg/dL Normal 8.5-10.5 [facility] Comment on above: Performed By: #### KENDALL AHUJA, , 277[address] ####[facility] ([id number])[address], [address], [place] [address] Chloride [Moles/Vol] 102 mmol/L Normal 98-109 [facility] Comment on above: Performed By: #### C ALLY [facility], , 2776-06 ####[facility] ([id number])[address] [address] CO2 [Moles/Vol] 26 mmol/L Normal 22-32 [facility] Comment on above: Performed By: #### C ALLY, KENDALL, , 2776-06 ####[facility] ([id number])[address] [address] Creatinine [Mass/Vol] 1.59 mg/dL High 0.60-1.30 [facility] Comment on above: Result Comment: METH OD TRACEABLE TO IDMS STANDARD Performed By: #### C ALLY [facility], , 2776-06 ####[facility] ([id number])[address] [address] GFR/1.73 sq M.predicted among non-blacks MDRD (S/P/Bld) [Vol rate/Area] 50 mL/min/{1.73_m2} Low >59 [facility] Comment on above: Result Comment: Reported eGFR is based on the CKD-EPI 2020 equation that does not use a race coefficient. Performed By: #### KENDALL AHUJA, , 2776-06 ####[facility] ([id number])[address] [address] Glucose [Mass/Vol] 145 mg/dL High 65-99 [facility] Comment on above: Performed By: #### C ALLY, [facility], , 2776-06 ####[facility] ([id number])[address] [address] Potassium [Moles/Vol] 3.9 mmol/L Normal 3.5-5.0 [facility] Comment on above: Performed By: #### KENDALL AHUJA, , 2776-06 ####[facility] ([id number])[address], [place] [address] Sodium [Moles/Vol] 134 mmol/L Normal 134-146 [facility] Comment on above: Performed By: #### C ALLY, KENDALL, , 2776-06 ####[facility] ([id number])[address], [place] [address] Urea nitrogen [Mass/Vol] 23 mg/dL Normal 5-23 [facility] Comment on above: Performed By: #### C ALLY, KENDALL, , 2776-06 ####[facility] ([id number])[address] [address] [place] [address] COMPLETE BLOOD COUNTon 11-09 Erythrocyte distribution width (RBC) [Ratio] 24.9 % High 11.5-15.0 [facility] Comment on above: Performed By: #### KENDALL AHUJA, , 2776-06 ####[facility] ([id number])[address] [address], [place] [address] Hematocrit (Bld) [Volume fraction] 24.5 % Low 39-49 [facility] Comment on above: Performed By: #### KENDALL AHUJA, , 2776-06 ####[facility] ([id number])[address] [address] [place] [address] Hemoglobin (Bld) [Mass/Vol] 7.9 g/dL Low 13.0-17.0 [facility] Comment on above: Performed By: #### Snehal CANALES, BMP, , 2776-06 ####[facility] ([id number])[address] [address], [place] [address] MCH (RBC) [Entitic mass] 25.4 pg Low 27-34 [facility] Comment on above: Performed By: #### C KENDALL CANALES, , 2776-06 ####[facility] ([id number])[address] [place] [address] MCHC (RBC) [Mass/Vol] 32.4 g/dL Normal 32-36 [facility] Comment on above: Performed By: #### Snehal CANALES, [facility], , 2776-06 ####[facility] ([id number])[address] [address] MCV (RBC) [Entitic vol] 78 fL Low 80-100 [facility] Comment on above: Performed By: #### Snehal CANALES, [facility], , 2776-06 ####[facility] ([id number])[address] [address] Platelet mean volume (Bld) [Entitic vol] 9.1 fL Normal 7-12 [facility] Comment on above: Performed By: #### Snehal CANALES, [facility], , 2776-06 ####[facility] ([id number])[address] [address] Platelets (Bld) [#/Vol] 142 10*3/uL Low 150-450 [facility] Comment on above: Performed By: #### Snehal CANALES, KENDALL, , 2776-06 ####[facility] ([id number])[address], [place] [address] RBC COUNT 3.14 X10E12/L Low 4.10-5.70 [facility] Comment on above: Performed By: #### Snehal CANALES, BMP, , 2776-06 ####[facility] ([id number])[address], [place] [address] WBC (Bld) [#/Vol] 9.7 10*3/uL Normal 4.0-11.0 [facility] Comment on above: Performed By: #### Snehal CANALES, KENDALL, , 2776-06 ####[facility] ([id number])[address], [place] [address] Glucose Glucometer (BldC) [M ass/Vol]on 11-10-2023 Glucose [Mass/Vol] 168 mg/dL High 65-99 [facility] Glucose [Mass/Vol] 245 mg/dL High 65-99 [facility] Glucose [Mass/Vol] 155 mg/dL High 65-99 [facility] Glucose [Mass/Vol] 153 mg/dL High 65-99 [facility] MAGNESIUMon 11-10-2023 Magnesium [Mass/Vol] 2.2 mg/dL Normal 1.8-2.6 [facility] Comment on above: Performed By: #### Snehal CANALES, BMP #### [facility] ([id number]) [address], [address] [place] [address] Magnesium [Mass/Vol] 1.8 mg/dL Normal 1.8-2.6 [facility] Comment on above: Performed By: #### Snehal CANALES, KENDALL, , 2776-06 ####[facility] ([id number])[address], [place] [address] PHOSPHORUSon 11-10-2023 Phosphate [Mass/Vol] 3.1 mg/dL Normal 2.4-4.9 [facility] Comment on above: Performed By: #### Snehal CANALES, KENDALL, , 2776-06 ####[facility] ([id number])[address], [place] [address] BASIC METABOLIC PANLon 11-08 Anion gap [Moles/Vol] 9 mmol/L Normal 5-15 [facility] Comment on above: Performed By: #### Snehal CANALES, 2639-3, BMP, 7-6, , 2776-06 ####[facility] ([id number])[address] [address], [place] [address] Calcium [Mass/Vol] 8.4 mg/dL Low 8.5-10.5 [facility] Comment on above: Performed By: #### Snehal CANALES, 2639-3, BMP, 2156-6, 45624-2, 2776-1 ####[facility] ([id number])[address] [address] [place] [address] Chloride [Moles/Vol] 104 mmol/L Normal 98-109 [facility] Comment on above: Performed By: #### Snehal CANALES, 2639-3, BMP, 2156-6, , 2776-1 ####[facility] ([id number])[address] [address] CO2 [Moles/Vol] 25 mmol/L Normal 22-32 [facility] Comment on above: Performed By: #### Snehal CANALES, 2639-3, BMP, 2156-6, , 2776-1 ####[facility] ([id number])[address] [address] Creatinine [Mass/Vol] 1.35 mg/dL High 0.60-1.30 [facility] Comment on above: Result Comment: METH OD TRACEABLE TO IDMS STANDARD Performed By: #### Snehal CANALES, 2639-3, BMP, 2156-6, 58205-0, 2776-1 ####[facility] ([id number])[address] [address] GFR/1.73 sq M.predicted among non-blacks MDRD (S/P/Bld) [Vol rate/Area] 61 mL/min/{1.73_m2} Normal >59 [facility] Comment on above: Result Comment: Reported eGFR is based on the CKD-EPI 2020 equation that does not use a race coefficient. Performed By: #### C ALLY, 2639-3, BMP, 2156-6, 77574-8, 2776-1 ####[facility] ([id number])[address], [place] [address] Glucose [Mass/Vol] 217 mg/dL High 65-99 [facility] Comment on above: Performed By: #### C BC, 2639-3, BMP, 2156-6, 99747-8, 2776- ####[facility] ([id number])[address] [address] Potassium [Moles/Vol] 4.2 mmol/L Normal 3.5-5.0 [facility] Comment on above: Performed By: #### C ALLY, 2639-3, BMP, 2156-6, 41585-0, 2776- ####[facility] ([id number])[address] [address] Sodium [Moles/Vol] 138 mmol/L Normal 134-146 [facility] Comment on above: Performed By: #### C ALLY, 2639-3, BMP, 2156-6, 18919-7, 2776-1 ####[facility] ([id number])[address] [address] Urea nitrogen [Mass/Vol] 23 mg/dL Normal 5-23 [facility] Comment on above: Performed By: #### C BC, 2639-3, BMP, 2156-6, 78784-8, 2776-1 ####[facility] ([id number])[address] [place] [address] CK [Catalytic activity/Vol]o n 11-09-2023 CPK 44 U/L Normal 24-195 [facility] Comment on above: Performed By: #### 2 157-6, 2639-3 ####[facility] ([id number])[address], [place] [address] CPK 30 U/L Normal 24-195 [facility] Comment on above: Performed By: #### C BC, 2639-3, BMP, 2156-11, , 1 ####[facility] ([id number])[address], [place] [address] COMPLETE BLOOD COUNTon 11-08 Erythrocyte distribution width (RBC) [Ratio] 24.9 % High 11.5-15.0 [facility] Comment on above: Performed By: #### Snehal CANALES, 2639-3, BMP, 2156-11, , 2776-06 ####[facility] ([id number])[address] [address], [place] [address] Hematocrit (Bld) [Volume fraction] 26.8 % Low 39-49 [facility] Comment on above: Performed By: #### Snehal CANALES, 2639-3, BMP, 2156-11, , 2776-06 ####[facility] ([id number])0 [address] [address], [place] [address] Hemoglobin (Bld) [Mass/Vol] 8.7 g/dL Low 13.0-17.0 [facility] Comment on above: Performed By: #### Snehal CANALES, 2639-3, BMP, 2156-11, , 2776-06 ####[facility] ([id number])[address] [address], [place] [address] MCH (RBC) [Entitic mass] 24.8 pg Low 27-34 [facility] Comment on above: Performed By: #### Snehal BC, 2639-3, BMP, 2156-11, , 1 ####[facility] ([id number])[address] [address] [place] [address] MCHC (RBC) [Mass/Vol] 32.6 g/dL Normal 32-36 [facility] Comment on above: Performed By: #### Snehal CANALES, 2639-3, BMP, 2156-, , 2776-06 ####[facility] ([id number])[address], [place] [address] MCV (RBC) [Entitic vol] 76 fL Low 80-100 [facility] Comment on above: Performed By: #### Snehal CANALES, 2639-3, BMP, 2156-, 07618-8, 2776- ####[facility] ([id number])[address] [place] [address] Platelet mean volume (Bld) [Entitic vol] 9.3 fL Normal 7-12 [facility] Comment on above: Performed By: #### Snehal CANALES, 2639-3, BMP, 2156-, , 2776-06 ####[facility] ([id number])[address] [address], [place] [address] Platelets (Bld) [#/Vol] 184 10*3/uL Normal 150-450 [facility] Comment on above: Performed By: #### Snehal CANALES, 2639-3, BMP, 2156-11, , 2776-06 ####[facility] ([id number])[address] [address] [place] [address] RBC COUNT 3.53 X10E12/L Low 4.10-5.70 [facility] Comment on above: Performed By: #### Snehal CANALES, 2639-3, BMP, 2156-, , 2776- ####[facility] ([id number])[address] [address] [place] [address], [place] [address] WBC (Bld) [#/Vol] 11.0 10*3/uL Normal 4.0-11.0 [facility] Comment on above: Performed By: #### C ALLY, 2639-3, BMP, 2156-11, , 2776-1 ####[facility] ([id number])[address], [address] [place] [address] Glucose Glucometer (BldC) [M ass/Vol]on 11-09-2023 Glucose [Mass/Vol] 243 mg/dL High 65-99 [facility] Glucose [Mass/Vol] 184 mg/dL High 65-99 [facility] Glucose [Mass/Vol] 199 mg/dL High 65-99 [facility] Glucose [Mass/Vol] 218 mg/dL High 65-99 [facility] Heparin unfractionated Chrom ogenic method Qn (PPP)on 11-09-2023 ANTI XA UFH 0.15 IU/mL Low 0.30-0.70 [facility] Comment on above: Result Comment: Opti mal time for testing is 6 hrs post dosage This test is specific for monitoring patients on UFH, and is not recommended for use with other Anti-Xa medications. Performed By: #### 3 274-8 ####[facility] ([id number])[address] [address] [place] [address] MAGNESIUMon 11-09-2023 Magnesium [Mass/Vol] 2.2 mg/dL Normal 1.8-2.6 [facility] Comment on above: Performed By: #### C ALLY, 2639-3, [facility], 2156-11, , 7-1 ####[facility] ([id number])[address], [address] [place] [address] Myoglobin [Mass/Vol]on 11-08 SERUM MYOGLOBIN 97.7 ng/mL Normal 17.4-105.7 [facility] Comment on above: Performed By: #### 2 157-6, 2639-3 ####[facility] ([id number])[address], [address] [place] [address] SERUM MYOGLOBIN 51.7 ng/mL Normal 17.4-105.7 [facility] Comment on above: Performed By: #### C BC, 2639-3, BMP, 2156-11, , 2776-06 ####[facility] ([id number])[address], [address] [address] PHOSPHORUSon 11-09-2023 Phosphate [Mass/Vol] 4.4 mg/dL Normal 2.4-4.9 [facility] Comment on above: Performed By: #### C BC, 2639-3, BMP, 2156-11, , 2776-06 ####[facility] ([id number])[address], [place] [address] BASIC METABOLIC PANLon 11-07 Anion gap [Moles/Vol] 9 mmol/L Normal 5-15 [facility] Comment on above: Performed By: #### P INR #### [facility] ([id number]) [address], [address] [place] [address] Calcium [Mass/Vol] 8.4 mg/dL Low 8.5-10.5 [facility] Comment on above: Performed By: #### P INR #### [facility] ([id number]) [address], [address] [place] [address] Chloride [Moles/Vol] 106 mmol/L Normal 98-109 [facility] Comment on above: Performed By: #### P INR #### [facility] ([id number]) [address], [address] [place] [address] CO2 [Moles/Vol] 24 mmol/L Normal 22-32 [facility] Comment on above: Performed By: #### P INR #### [facility] ([id number]) [address], [address] [place] [address] Creatinine [Mass/Vol] 1.30 mg/dL Normal 0.60-1.30 [facility] Comment on above: Result Comment: METH OD TRACEABLE TO IDMS STANDARD Performed By: #### P INR #### [facility] ([id number]) [address], [address] [place] [address] GFR/1.73 sq M.predicted among non-blacks MDRD (S/P/Bld) [Vol rate/Area] 64 mL/min/{1.73_m2} Normal >59 [facility] Comment on above: Result Comment: Reported eGFR is based on the CKD-EPI 2020 equation that does not use a race coefficient. Performed By: #### P INR #### [facility] ([id number]) [address], [address] [place] [address] Glucose [Mass/Vol] 163 mg/dL High 65-99 [facility] Comment on above: Performed By: #### P INR #### [facility] ([id number]) [address], [address] [place] [address] Potassium [Moles/Vol] 4.1 mmol/L Normal 3.5-5.0 [facility] Comment on above: Performed By: #### P INR #### [facility] ([id number]) [address], [address] [place] [address] Sodium [Moles/Vol] 139 mmol/L Normal 134-146 [facility] Comment on above: Performed By: #### P INR #### [facility] ([id number]) [address], [address] [place] [address] Urea nitrogen [Mass/Vol] 23 mg/dL Normal 5-23 [facility] Comment on above: Performed By: #### P INR #### [facility] ([id number]) [address], [address] [place] [address] Anion gap [Moles/Vol] 9 mmol/L Normal 5-15 [facility] Comment on above: Performed By: #### C ALLY, BMP #### [facility] ([id number]) [address], [address] [place] [address] Calcium [Mass/Vol] 8.8 mg/dL Normal 8.5-10.5 [facility] Comment on above: Performed By: #### C ALLY, BMP #### [facility] ([id number]) [address], [address] [place] [address] Chloride [Moles/Vol] 104 mmol/L Normal 98-109 [facility] Comment on above: Performed By: #### C ALLY, BMP #### [facility] ([id number]) [address], [address] [place] [address] CO2 [Moles/Vol] 25 mmol/L Normal 22-32 [facility] Comment on above: Performed By: #### C ALLY, BMP #### [facility] ([id number]) [address], [address] [place] [address] Creatinine [Mass/Vol] 1.70 mg/dL High 0.60-1.30 [facility] Comment on above: Result Comment: METH OD TRACEABLE TO IDMS STANDARD Performed By: #### C ALLY, BMP #### [facility] ([id number]) [address], [address] [place] [address] GFR/1.73 sq M.predicted among non-blacks MDRD (S/P/Bld) [Vol rate/Area] 46 mL/min/{1.73_m2} Low >59 [facility] Comment on above: Result Comment: Reported eGFR is based on the CKD-EPI 2020 equation that does not use a race coefficient. Performed By: #### C ALLY, BMP #### [facility] ([id number]) [address], [address] [place] [address] Glucose [Mass/Vol] 111 mg/dL High 65-99 [facility] Comment on above: Performed By: #### C BC, BMP #### [facility] ([id number]) [address], [address] [place] [address] Potassium [Moles/Vol] 3.8 mmol/L Normal 3.5-5.0 [facility] Comment on above: Performed By: #### C BC, BMP #### [facility] ([id number]) [address], [address] [place] [address] Sodium [Moles/Vol] 138 mmol/L Normal 134-146 [facility] Comment on above: Performed By: #### C BC, BMP #### [facility] ([id number]) [address], [address] [place] [address] Urea nitrogen [Mass/Vol] 28 mg/dL High 5-23 [facility] Comment on above: Performed By: #### C BC, BMP #### [facility] ([id number]) [address], [address] [place] [address] CK [Catalytic activity/Vol]o n 11-08-2023 CPK 26 U/L Normal 24-195 [facility] Comment on above: Performed By: #### P INR #### [facility] ([id number]) [address], [address] [place] [address] COMPLETE BLOOD COUNTon 11-07 Erythrocyte distribution width (RBC) [Ratio] 24.8 % High 11.5-15.0 [facility] Comment on above: Performed By: #### P INR #### [facility] ([id number]) [address], [address] [place] [address] Hematocrit (Bld) [Volume fraction] 29.3 % Low 39-49 [facility] Comment on above: Performed By: #### P INR #### [facility] ([id number]) [address], [address] [place] [address] Hemoglobin (Bld) [Mass/Vol] 9.6 g/dL Low 13.0-17.0 [facility] Comment on above: Performed By: #### P INR #### [facility] ([id number]) [address], [address] [place] [address] MCH (RBC) [Entitic mass] 24.9 pg Low 27-34 [facility] Comment on above: Performed By: #### P INR #### [facility] ([id number]) [address], [address] [place] [address] MCHC (RBC) [Mass/Vol] 32.7 g/dL Normal 32-36 [facility] Comment on above: Performed By: #### P INR #### [facility] ([id number]) [address], [address] [place] [address] MCV (RBC) [Entitic vol] 76 fL Low 80-100 [facility] Comment on above: Performed By: #### P INR #### [facility] ([id number]) [address], [address] [place] [address] Platelet mean volume (Bld) [Entitic vol] 8.7 fL Normal 7-12 [facility] Comment on above: Performed By: #### P INR #### [facility] ([id number]) [address], [address] [place] [address] Platelets (Bld) [#/Vol] 169 10*3/uL Normal 150-450 [facility] Comment on above: Performed By: #### P INR #### [facility] ([id number]) [address], [address] [place] [address] RBC COUNT 3.85 X10E12/L Low 4.10-5.70 [facility] Comment on above: Performed By: #### P INR #### [facility] ([id number]) [address], [address] [place] [address] WBC (Bld) [#/Vol] 13.5 10*3/uL High 4.0-11.0 [facility] Comment on above: Performed By: #### P INR #### [facility] ([id number]) [address], [address] [place] [address] Erythrocyte distribution width (RBC) [Ratio] 25.2 % High 11.5-15.0 [facility] Comment on above: Performed By: #### C BC, BMP #### [facility] ([id number]) [address], [address] [place] [address] Hematocrit (Bld) [Volume fraction] 33.0 % Low 39-49 [facility] Comment on above: Performed By: #### C BC, BMP #### [facility] ([id number]) [address], [address] [place] [address] Hemoglobin (Bld) [Mass/Vol] 10.8 g/dL Low 13.0-17.0 [facility] Comment on above: Performed By: #### C BC, BMP #### [facility] ([id number]) [address], [address] [place] [address] MCH (RBC) [Entitic mass] 25.0 pg Low 27-34 [facility] Comment on above: Performed By: #### C BC, BMP #### [facility] ([id number]) [address], [address] [place] [address] MCHC (RBC) [Mass/Vol] 32.8 g/dL Normal 32-36 [facility] Comment on above: Performed By: #### C BC, BMP #### [facility] ([id number]) [address], [address] [place] [address] MCV (RBC) [Entitic vol] 76 fL Low 80-100 [facility] Comment on above: Performed By: #### C ALLY, BMP #### [facility] ([id number]) [address] [address] Platelet mean volume (Bld) [Entitic vol] 8.8 fL Normal 7-12 [facility] Comment on above: Performed By: #### Snehal CANALES, BMP #### [facility] ([id number]) [address], [address] [address] Platelets (Bld) [#/Vol] 172 10*3/uL Normal 150-450 [facility] Comment on above: Performed By: #### Snehal CANALES, BMP #### [facility] ([id number]) [address], [address] [address] RBC COUNT 4.33 X10E12/L Normal 4.10-5.70 [facility] Comment on above: Performed By: #### Snehal CANALES, BMP #### [facility] ([id number]) [address], [address] [address] WBC (Bld) [#/Vol] 9.3 10*3/uL Normal 4.0-11.0 [facility] Comment on above: Performed By: #### Snehal CANALES, BMP #### [facility] ([id number]) [address], [address] [address] Glucose Glucometer (BldC) [M ass/Vol]on 11-08-2023 Glucose [Mass/Vol] 162 mg/dL High 65-99 [facility] Glucose [Mass/Vol] 96 mg/dL Normal 65-99 [facility] Glucose [Mass/Vol] 142 mg/dL High 65-99 [facility] Glucose [Mass/Vol] 114 mg/dL High 65-99 [facility] Lactate (P ekaterina) [Moles/Vol]o n 11-08-2023 LACTATE W/REFLEX 1.0 mmol/L Normal 0.4-2.0 [facility] Comment on above: Result Comment: Result did not trigger repeat Lactate, re-order if needed. Performed By: #### P INR #### [facility] ([id number]) [address], [address] [place] [address] MAGNESIUMon 11-08-2023 Magnesium [Mass/Vol] 1.7 mg/dL Low 1.8-2.6 [facility] Comment on above: Performed By: #### P INR #### [facility] ([id number]) [address], [address] [place] [address] Myoglobin [Mass/Vol]on 11-07 SERUM MYOGLOBIN 33.1 ng/mL Normal 17.4-105.7 [facility] Comment on above: Performed By: #### P INR #### [facility] ([id number]) [address], [address] [place] [address] PHOSPHORUSon 11-08-2023 Phosphate [Mass/Vol] 4.0 mg/dL Normal 2.4-4.9 [facility] Comment on above: Performed By: #### P INR #### [facility] ([id number]) [address], [address] [place] [address] PROTIME AND INRon 11-08-2023 INR Coag (PPP) [Relative time] 1.3 {INR} High 0.8-1.1 [facility] Comment on above: Performed By: #### P INR #### [facility] ([id number]) [address], [address] [place] [address] PT Coag (PPP) [Time] 14.7 s High 9.8-13.2 [facility] Comment on above: Performed By: #### P INR #### [facility] ([id number]) [address], [address] [place] [address] RAPID CARDIACon 11-08-2023 COURTNEY'S TEST Normal [facility] Comment on above: Performed By: #### A FAB5 #### [facility] ([id number]) [address] [place] [address] Base excess Calc (Bld) [Moles/Vol] 0.1 mmol/L Normal 0.0-2.0 [facility] Comment on above: Performed By: #### A FAB5 #### [facility] ([id number]) [address] [facility] [place] [address] Body temperature 98.6 [degF] Normal 37.0 [facility] Comment on above: Performed By: #### A FAB5 #### [facility] ([id number]) [address] [place] [address] Glucose [Mass/Vol] 117 mg/dL High 65-99 [facility] Comment on above: Performed By: #### A FAB5 #### [facility] ([id number]) [address] [place] [address] HCO3 (Bld) [Moles/Vol] 24.8 mmol/L Normal 22-26 [facility] Comment on above: Performed By: #### A FAB5 #### [facility] ([id number]) [address] [place] [address] Hematocrit (Bld) [Volume fraction] 31 % Low 39-49 [facility] Comment on above: Performed By: #### A FAB5 #### [facility] ([id number]) [address] [place] [address] Hemoglobin (Bld) [Mass/Vol] 10.2 g/dL Low 13.0-17.0 [facility] Comment on above: Performed By: #### A FAB5 #### [facility] ([id number]) [address] [place] [address] INSP. O2 CONC. 100 % Normal [facility] Comment on above: Performed By: #### A FAB5 #### [facility] ([id number]) [address] [place] [address] IONIZED CALCIUM 4.8 mg/dL Normal 4.5-5.3 [facility] Comment on above: Performed By: #### A FAB5 #### [facility] ([id number]) [address] [place] [address] Oxygen (Bld) [Partial pressure] 167 mm[Hg] High 80-100 [facility] Comment on above: Performed By: #### A FAB5 #### [facility] ([id number]) [address] [place] [address] Oxygen saturation in Blood 100.8 % Normal >90 [facility] Comment on above: Performed By: #### A FAB5 #### [facility] ([id number]) [address] [place] [address] PCO2 39.7 MMHG Normal 35-45 [facility] Comment on above: Performed By: #### A FAB5 #### [facility] ([id number]) [address] [place] [address] pH (Bld) 7.404 [pH] Normal 7.350-7.45 0 [facility] Comment on above: Performed By: #### A FAB5 #### [facility] ([id number]) [address] [place] [address] Potassium [Moles/Vol] 3.8 mmol/L Normal 3.5-5.0 [facility] Comment on above: Performed By: #### A FAB5 #### [facility] ([id number]) [address] [place] [address] SAMPLE SITE KECIA Normal [facility] Comment on above: Performed By: #### A FAB5 #### [facility] ([id number]) [address] [place] [address] SAMPLE TYPE Arterial Normal [facility] Comment on above: Performed By: #### A FAB5 #### [facility] ([id number]) [address] [facility] [place] [address] RAPID CARDIAC W/ NAon 2023 COURTNEY'S TEST Normal [facility] Comment on above: Performed By: #### P INR #### [facility] ([id number]) [address] [place] [address] Base excess Calc (Bld) [Moles/Vol] 0.2 mmol/L Normal 0.0-2.0 [facility] Comment on above: Performed By: #### P INR #### [facility] ([id number]) [address] [address] [place] [address] Body temperature 98.6 [degF] Normal 37.0 [facility] Comment on above: Performed By: #### P INR #### [facility] ([id number]) [address] [place] [address] Glucose [Mass/Vol] 125 mg/dL High 65-99 [facility] Comment on above: Performed By: #### P INR #### [facility] ([id number]) [address] [place] [address] HCO3 (Bld) [Moles/Vol] 25.3 mmol/L Normal 22-26 [facility] Comment on above: Performed By: #### P INR #### [facility] ([id number]) [address], [address] [place] [address] Hematocrit (Bld) [Volume fraction] 31 % Low 39-49 [facility] Comment on above: Performed By: #### P INR #### [facility] ([id number]) [address] [place] [address] Hemoglobin (Bld) [Mass/Vol] 10.0 g/dL Low 13.0-17.0 [facility] Comment on above: Performed By: #### P INR #### [facility] ([id number]) [address], [address] [place] [address] INSP. O2 CONC. 50 % Normal [facility] Comment on above: Performed By: #### P INR #### [facility] ([id number]) [address] [place] [address] IONIZED CALCIUM 4.7 mg/dL Normal 4.5-5.3 [facility] Comment on above: Performed By: #### P INR #### [facility] ([id number]) [address] [place] [address] Oxygen (Bld) [Partial pressure] 131 mm[Hg] High 80-100 [facility] Comment on above: Performed By: #### P INR #### [facility] ([id number]) [address] [place] [address] Oxygen saturation in Blood 99.9 % Normal >90 [facility] Comment on above: Performed By: #### P INR #### [facility] ([id number]) [address] [place] [address] PCO2 42.7 MMHG Normal 35-45 [facility] Comment on above: Performed By: #### P INR #### [facility] ([id number]) [address] [place] [address] pH (Bld) 7.381 [pH] Normal 7.350-7.45 0 [facility] Comment on above: Performed By: #### P INR #### [facility] ([id number]) [address] [place] [address] Potassium [Moles/Vol] 3.7 mmol/L Normal 3.5-5.0 [facility] Comment on above: Performed By: #### P INR #### [facility] ([id number]) [address] [place] [address] SAMPLE SITE KECIA Normal [facility] Comment on above: Performed By: #### P INR #### [facility] ([id number]) [address], [address] [place] [address] SAMPLE TYPE Arterial Normal [facility] Comment on above: Performed By: #### P INR #### [facility] ([id number]) [address] [place] [address] Sodium [Moles/Vol] 139 mmol/L Normal 134-146 [facility] Comment on above: Performed By: #### P INR #### [facility] ([id number]) [address] [place] [address] aPTT Coag (PPP) [Time]on aPTT Coag (Bld) [Time] 30 s Normal 26-37 [facility] Comment on above: Performed By: #### P INR #### [facility] ([id number]) [address] [place] [address] Glucose Glucometer (BldC) [M ass/Vol]on 11-07-2023 Glucose [Mass/Vol] 150 mg/dL High 65-99 [facility] Glucose [Mass/Vol] 58 mg/dL Low 65-99 [facility] POC [id number] 11-07-2023 Chloride [Moles/Vol] 98 mmol/L Normal 98-109 [facility] Comment on above: Performed By: #### I ELGBC #### [facility] ([id number]) [address] [place] [address] CO2 [Moles/Vol] 31 mmol/L Normal 22-32 [facility] Comment on above: Performed By: #### I ELGBC #### [facility] ([id number]) [address] [place] [address] Creatinine [Mass/Vol] 1.9 mg/dL High 0.7-1.2 [facility] Comment on above: Result Comment: METH OD TRACEABLE TO IDMS STANDARD Performed By: #### I ELGBC #### [facility] ([id number]) [address] [place] [address] GFR/1.73 sq M.predicted among non-blacks MDRD (S/P/Bld) [Vol rate/Area] 40 mL/min/{1.73_m2} Low >59 [facility] Comment on above: Result Comment: Reported eGFR is based on the CKD-EPI 2020 equation that does not use a race coefficient. Performed By: #### I ELGB #### [facility] ([id number]) [address] [place] [address] Glucose [Mass/Vol] 72 mg/dL Normal 65-99 [facility] Comment on above: Performed By: #### I ELGB #### [facility] ([id number]) [address] [place] [address] Potassium [Moles/Vol] 3.6 mmol/L Normal 3.5-5.0 [facility] Comment on above: Performed By: #### I ELGB #### [facility] ([id number]) [address] [place] [address] Sodium [Moles/Vol] 139 mmol/L Normal 134-146 [facility] Comment on above: Performed By: #### I ELGBC #### [facility] ([id number]) [address] [place] [address] Urea nitrogen [Mass/Vol] 31 mg/dL High 6-23 [facility] Comment on above: Performed By: #### I ELGBC #### [facility] ([id number]) [address] [place] [address] PROTIME AND INRon 11-07-2023 INR Coag (PPP) [Relative time] 1.3 {INR} High 0.8-1.1 [facility] Comment on above: Performed By: #### P INR #### [facility] ([id number]) [address] [place] [address] PT Coag (PPP) [Time] 14.5 s High 9.8-13.2 [facility] Comment on above: Performed By: #### P INR #### [facility] ([id number]) [address], [address] [place] [address] ECG 12 Leadon 10-24-2023 [facility] Work Phone: Consent for Treatmenton 10-04 Consent for Treatment [id number]#1.00TIFF Normal 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 Normal [facility] Comment on above: Result Comment: Elec tronically Signed By: Padmini Montes MD\.br\Date and Time Signed: 10/23/23 10:35 EDT US [...] Christiano Guillen MD Transcribed by: HASEEB Technologist: HW Normal [facility] CHEMISTRYOrdered By: [address] SYSTEM on 10-19-2023 Creatinine [Mass/Vol] 1.6 mg/dL [...] 370 Contrast amount in ml's: 150 Normal [facility] Consent for Treatmenton 10-03 Consent for Treatment [id number]#1.00TIFF Normal [facility] Creatinineon 10-19-2023 Creatinine [Mass/Vol] 1.6 mg/dL High 0.5-1.3 [facility] Comment on above: Performed By: #### 2 [id number] #### [facility] [address] [place] [address] Physician Orderon 10-19-2023 Physician Order [id number]#1.00TIFF Normal [facility] eGFRon 10-19-2023 eGFR 50 mL/min/1.73 m2 Low >=59 [facility] Comment on above: Order Comment: Order added by Discern Expert. Performed By: #### 1 [id number] #### [facility] [address] [place] [address] Outside Progress Noteon 10-03 Outside Progress Note [id number]#1.00TIFF Normal [facility] Physician Orderon 10-18-2023 Physician Order [id number]#1.00TIF F Normal [facility] Physician Order [id number]#1.00TIFF Normal [facility] Basophils Auto (Bld) [#/Vol] on 10-06-2023 Basophils (Bld) [#/Vol] 0.0 10 3/uL 0.0-0.1 [facility] Basophils/100 WBC Auto (Bld) on 10-06-2023 Basophils/100 WBC (Bld) 0.3 % 0.2-2.0 [facility] Eosinophils/100 WBC Auto (Bl d)on 10-06-2023 Eosinophils/100 WBC (Bld) 1.9 % 0.9-7.0 [facility] Erythrocyte distribution wid th Auto (RBC) [Ratio]on 10-06-2023 Erythrocyte distribution width (RBC) [Ratio] 19.9 % High 11.0-15.0 [facility] Estimated glomerular filtrat ion rate (GFR) non- Americanon 10-06-2023 GFR/1.73 sq M.predicted among non-blacks MDRD (S/P/Bld) [Vol rate/Area] 42 mL/min/{1.73_m2} Low >=60 [facility] Globulin Calc (S) [Mass/Vol] on 10-06-2023 Globulin (S) [Mass/Vol] 4.3 g/dL [facility] Hematocrit Auto (Bld) [Volum e fraction]on 10-06-2023 Hematocrit (Bld) [Volume fraction] 28.3 % Low 42.0-54.0 [facility] Hemoglobin [Mass/volume] in Bloodon 10-06-2023 Hemoglobin (Bld) [Mass/Vol] 8.4 g/dL Low 14.0-18.0 [facility] Laboratory - Chemistry and C hemistry - challengeon 10-06-2023 Albumin [Mass/Vol] 2.1 g/dL Low 3.4-5.0 [facility] ALP [Catalytic activity/Vol] 133 U/L High 46-116 [facility] ALT [Catalytic activity/Vol] 18 U/L 16-63 [facility] AST [Catalytic activity/Vol] 20 U/L 15-37 [facility] Bilirubin [Mass/Vol] 0.3 mg/dL 0.2-1.0 [facility] Calcium [Mass/Vol] 9.4 mg/dL 8.5-10.1 [facility] Chloride [Moles/Vol] 103 mmol/L 98-107 [facility] CO2 [Moles/Vol] 23.7 mmol/L 21.0-32.0 [facility] Creatinine [Mass/Vol] 1.67 mg/dL High 0.70-1.30 [facility] GFR/1.73 sq M.predicted MDRD (S/P/Bld) [Vol rate/Area] 52 mL/min/{1.73_m2} Low >=60 [facility] Glucose [Mass/Vol] 91 mg/dL 74-106 [facility] Magnesium [Mass/Vol] 1.6 mg/dL Low 1.8-2.4 [facility] Potassium [Moles/Vol] 4.8 mmol/L 3.5-5.1 [facility] Protein [Mass/Vol] 6.4 g/dL 6.4-8.2 [facility] Sodium [Moles/Vol] 136 mmol/L 136-145 [facility] Urea nitrogen [Mass/Vol] 29.0 mg/dL High 7.0-18.0 [facility] Urea nitrogen/Creatinine [Mass ratio] 17.4 mg/mg [facility] Laboratory - Hematology and Cell countson 10-06-2023 ESR (Bld) [Velocity] mm/h High <=20 [facility] Immature granulocytes/100 WBC (Bld) 1.5 % High 0.0-0.5 [facility] Leukocytes [#/volume] correc jorge for nucleated erythrocytes in Blood by Automated counon 10-06-2023 WBC corrected for nucl RBC Auto (Bld) [#/Vol] 11.6 10 3/uL High 4.0-11.0 [facility] Lymphocytes Auto (Bld) [#/Vo l]on 10-06-2023 Lymphocytes (Bld) [#/Vol] 1.5 10 3/uL 1.2-3.8 [facility] Lymphocytes/100 WBC Auto (Bl d)on 10-06-2023 Lymphocytes/100 WBC (Bld) 12.9 % Low 20.5-60.0 [facility] MCH Auto (RBC) [Entitic mass ]on 10-06-2023 MCH (RBC) [Entitic mass] 22.5 pg Low 25.9-34.0 [facility] MCHC Auto (RBC) [Mass/Vol]on 10-06-2023 MCHC (RBC) [Mass/Vol] 29.7 g/dL Low 29.9-35.2 [facility] MCV Auto (RBC) [Entitic vol] on 10-06-2023 MCV (RBC) [Entitic vol] 75.9 fL Low 80.0-94.0 [facility] Monocytes Auto (Bld) [#/Vol] on 10-06-2023 Monocytes (Bld) [#/Vol] 1.3 10 3/uL High 0.3-0.8 [facility] Monocytes/100 WBC Auto (Bld) on 10-06-2023 Monocytes/100 WBC (Bld) 10.9 % 1.7-12.0 [facility] Neutrophils Auto (Bld) [#/Vo l]on 10-06-2023 Neutrophils (Bld) [#/Vol] 8.4 10 3/uL High 1.4-6.5 [facility] Neutrophils/100 WBC Auto (Bl d)on 10-06-2023 Neutrophils/100 WBC (Bld) 72.5 % 43.0-75.0 [facility] No Panel Informationon 10-05 Eosinophils # (Auto) 0.2 10 3/uL 0.0-0.7 [facility] Immature Granulocyte # (Auto) 0.17 10 3/uL High 0.00-0.03 [facility] Platelet mean volume Auto (B ld) [Entitic vol]on 10-06-2023 Platelet mean volume (Bld) [Entitic vol] 10.3 fL 9.5-13.5 [facility] Platelets Auto (Bld) [#/Vol] on 10-06-2023 Platelets (Bld) [#/Vol] 233 10 3/uL 150-450 [facility] RBC Auto (Bld) [#/Vol]on RBC (Bld) [#/Vol] 3.73 10 6/uL Low 4.70-6.10 [facility] Serum or plasma albumin/glob ulin mass ratioon 10-06-2023 Albumin/Globulin [Mass ratio] 0.5 {ratio} [facility] Serum or plasma anion gap de terminationon 10-06-2023 Anion gap [Moles/Vol] 14.1 mmol/L [facility] Basophils Auto (Bld) [#/Vol] on 10-05-2023 Basophils (Bld) [#/Vol] 0.1 10 3/uL 0.0-0.1 [facility] Basophils/100 WBC Auto (Bld) on 10-05-2023 Basophils/100 WBC (Bld) 0.6 % 0.2-2.0 [facility] Eosinophils/100 WBC Auto (Bl d)on 10-05-2023 Eosinophils/100 WBC (Bld) 3.3 % 0.9-7.0 [facility] Erythrocyte distribution wid th Auto (RBC) [Ratio]on 10-05-2023 Erythrocyte distribution width (RBC) [Ratio] 19.6 % High 11.0-15.0 [facility] Estimated glomerular filtrat ion rate (GFR) non- Americanon 10-05-2023 GFR/1.73 sq M.predicted among non-blacks MDRD (S/P/Bld) [Vol rate/Area] 41 mL/min/{1.73_m2} Low >=60 [facility] Globulin Calc (S) [Mass/Vol] on 10-05-2023 Globulin (S) [Mass/Vol] 4.7 g/dL [facility] Hematocrit Auto (Bld) [Volum e fraction]on 10-05-2023 Hematocrit (Bld) [Volume fraction] 29.9 % Low 42.0-54.0 [facility] Hemoglobin [Mass/volume] in Bloodon 10-05-2023 Hemoglobin (Bld) [Mass/Vol] 9.0 g/dL Low 14.0-18.0 [facility] Guy 10-05-2023 L Specimen: [id number] Received: 10/06/23 Status: COLTON [facility] Num: [id number] Spec Type: Surgical Subm Dr: Paula Soto DPM, MS Tissues: A DIGIT AMPUTATION (RT 2,3,4 AND 5 METATARSAL AM) Procedures: HE/6, Gross/Micro L4, Decalcification Age/ Patient Sex Location Account Attending Physician Solomon Pickard 58/M [facility] [id number] Paula Soto DPM, MS SPEC NUM: [id number] RECD: 10/06/23 STATUS: COLTON YAP NUM: [id number] SHAKIRA: 10/05/[address]: Paula Soto DPM, MS ENTERED: 10/06/[address] [facility] [address]: Jericho Lion SPEC TYPE: Surgical DEPT: RAMSEY MARCANO ORDERED: [...] specimen demonstrates firm, yellow spongy bone matrix. Rn Picu sections are submitted as follows: A1: Skin and soft tissue margins A2: Second digit, bone margin; #1 proximal phalangeal margin (following decal) A3: Third digit, bone margin; #2 proximal phalangeal margin (following decal) A4: Fourth digit, bone margin; #3 proximal phalangeal margin (following decal) A5: Fifth digit, bone margin; #4 proximal phalangeal margin (following decal) Specimen: [id number] Received: 10/06/23 Status: COLTON Nath Num: [id number] Spec Type: Surgical Subm Dr: Paula Soto,LINDSEY, MS Tissues: A DIGIT AMPUTATION (RT 2,3,4 AND 5 METATARSAL AM) Procedures: LULU/Ramirez, Gross/Micro L4, Decalcification Patient: Solomon Pickard SR [id number] (Continued) Specimen: [id number] Received: 10/06/23 (Continued) Gross Description (Continued) Signed (signature on file) Padmini Linn MD 10/10/23 1542 Specimen: [id number] Received: 10/06/23 Status: COLTON Nath Num: [id number] Spec Type: Surgical Subm Dr: Paula Soto,LINDSEY, MS Tissues: A DIGIT AMPUTATION (RT 2,3,4 AND 5 METATARSAL AM) Procedures: HE/6, Gross/Micro L4, Decalcification Patient: Solomon Pickard SR [id number] (Continued) Specimen: [id number] Received: 10/06/23 (Continued) Gross Description (Continued) A6: Full-thickness section to include skin, underlying soft tissue and bone (following decal) Clinical history: None given CPT Codes 40081 FOREFOOT AND DIGITS Specimen: [id number] Received: 10/06/23 Status: COLTON Nath Num: [id number] Spec Type: Surgical Subm Dr: Paula Soto,LINDSEY, MS Tissues: A DIGIT AMPUTATION (RT 2,3,4 AND 5 METATARSAL AM) Procedures: HE/Ramirez, Gross/Micro L4, Decalcification Patient: Solomon Pickard SR [id number] (Continued) Signed (signature on file) Padmini Linn MD 10/10/23 1542 Normal [facility] Laboratory - Chemistry and C hemistry - challengeon 10-05-2023 Albumin [Mass/Vol] 2.2 g/dL Low 3.4-5.0 [facility] ALP [Catalytic activity/Vol] 140 U/L High 46-116 [facility] ALT [Catalytic activity/Vol] 18 U/L 16-63 [facility] AST [Catalytic activity/Vol] 22 U/L 15-37 [facility] Bilirubin [Mass/Vol] 0.5 mg/dL 0.2-1.0 [facility] Calcium [Mass/Vol] 9.2 mg/dL 8.5-10.1 [facility] Chloride [Moles/Vol] 100 mmol/L 98-107 [facility] CO2 [Moles/Vol] 22.6 mmol/L 21.0-32.0 [facility] Creatinine [Mass/Vol] 1.74 mg/dL High 0.70-1.30 [facility] GFR/1.73 sq M.predicted MDRD (S/P/Bld) [Vol rate/Area] 49 mL/min/{1.73_m2} Low >=60 [facility] Glucose [Mass/Vol] 162 mg/dL High 74-106 [facility] Magnesium [Mass/Vol] 1.7 mg/dL Low 1.8-2.4 [facility] Potassium [Moles/Vol] 5.3 mmol/L High 3.5-5.1 [facility] Protein [Mass/Vol] 6.9 g/dL 6.4-8.2 [facility] Sodium [Moles/Vol] 133 mmol/L Low 136-145 [facility] Urea nitrogen [Mass/Vol] 30.0 mg/dL High 7.0-18.0 [facility] Urea nitrogen/Creatinine [Mass ratio] 17.2 mg/mg [facility] Laboratory - Hematology and Cell countson 10-05-2023 ESR (Bld) [Velocity] 130 mm/h High <=20 [facility] Immature granulocytes/100 WBC (Bld) 1.3 % High 0.0-0.5 [facility] Leukocytes [#/volume] correc jorge for nucleated erythrocytes in Blood by Automated counon 10-05-2023 WBC corrected for nucl RBC Auto (Bld) [#/Vol] 12.6 10 3/uL High 4.0-11.0 [facility] Lymphocytes Auto (Bld) [#/Vo l]on 10-05-2023 Lymphocytes (Bld) [#/Vol] 1.3 10 3/uL 1.2-3.8 [facility] Lymphocytes/100 WBC Auto (Bl d)on 10-05-2023 Lymphocytes/100 WBC (Bld) 10.1 % Low 20.5-60.0 [facility] MCH Auto (RBC) [Entitic mass ]on 10-05-2023 MCH (RBC) [Entitic mass] 22.7 pg Low 25.9-34.0 [facility] MCHC Auto (RBC) [Mass/Vol]on 10-05-2023 MCHC (RBC) [Mass/Vol] 30.1 g/dL 29.9-35.2 [facility] MCV Auto (RBC) [Entitic vol] on 10-05-2023 MCV (RBC) [Entitic vol] 75.3 fL Low 80.0-94.0 [facility] Monocytes Auto (Bld) [#/Vol] on 10-05-2023 Monocytes (Bld) [#/Vol] 1.4 10 3/uL High 0.3-0.8 [facility] Monocytes/100 WBC Auto (Bld) on 10-05-2023 Monocytes/100 WBC (Bld) 10.9 % 1.7-12.0 [facility] Neutrophils Auto (Bld) [#/Vo l]on 10-05-2023 Neutrophils (Bld) [#/Vol] 9.3 10 3/uL High 1.4-6.5 [facility] Neutrophils/100 WBC Auto (Bl d)on 10-05-2023 Neutrophils/100 WBC (Bld) 73.8 % 43.0-75.0 [facility] No Panel Informationon 10-04 Eosinophils # (Auto) 0.4 10 3/uL 0.0-0.7 [facility] Immature Granulocyte # (Auto) 0.16 10 3/uL High 0.00-0.03 [facility] Platelet mean volume Auto (B ld) [Entitic vol]on 10-05-2023 Platelet mean volume (Bld) [Entitic vol] 11.3 fL 9.5-13.5 [facility] Platelets Auto (Bld) [#/Vol] on 10-05-2023 Platelets (Bld) [#/Vol] 203 10 3/uL 150-450 [facility] RBC Auto (Bld) [#/Vol]on RBC (Bld) [#/Vol] 3.97 10 6/uL Low 4.70-6.10 [facility] Serum or plasma albumin/glob ulin mass ratioon 10-05-2023 Albumin/Globulin [Mass ratio] 0.5 {ratio} [facility] Serum or plasma anion gap de terminationon 10-05-2023 Anion gap [Moles/Vol] 15.7 mmol/L [facility] Basophils Auto (Bld) [#/Vol] on 10-04-2023 Basophils (Bld) [#/Vol] 0.1 10 3/uL 0.0-0.1 [facility] Basophils/100 WBC Auto (Bld) on 10-04-2023 Basophils/100 WBC (Bld) 0.5 % 0.2-2.0 [facility] Eosinophils/100 WBC Auto (Bl d)on 10-04-2023 Eosinophils/100 WBC (Bld) 3.6 % 0.9-7.0 [facility] Erythrocyte distribution wid th Auto (RBC) [Ratio]on 10-04-2023 Erythrocyte distribution width (RBC) [Ratio] 19.6 % High 11.0-15.0 [facility] Estimated glomerular filtrat ion rate (GFR) non- Americanon 10-04-2023 GFR/1.73 sq M.predicted among non-blacks MDRD (S/P/Bld) [Vol rate/Area] 44 mL/min/{1.73_m2} Low >=60 [facility] Globulin Calc (S) [Mass/Vol] on 10-04-2023 Globulin (S) [Mass/Vol] 4.3 g/dL [facility] Hematocrit Auto (Bld) [Volum e fraction]on 10-04-2023 Hematocrit (Bld) [Volume fraction] 26.8 % Low 42.0-54.0 [facility] Hemoglobin [Mass/volume] in Bloodon 10-04-2023 Hemoglobin (Bld) [Mass/Vol] 7.9 g/dL Low 14.0-18.0 [facility] Laboratory - Chemistry and C hemistry - challengeon 10-04-2023 Albumin [Mass/Vol] 1.9 g/dL Low 3.4-5.0 [facility] ALP [Catalytic activity/Vol] 135 U/L High 46-116 [facility] ALT [Catalytic activity/Vol] 16 U/L 16-63 [facility] AST [Catalytic activity/Vol] 19 U/L 15-37 [facility] Bilirubin [Mass/Vol] 0.4 mg/dL 0.2-1.0 [facility] Calcium [Mass/Vol] 7.8 mg/dL Low 8.5-10.1 [facility] Chloride [Moles/Vol] 102 mmol/L 98-107 [facility] CO2 [Moles/Vol] 25.0 mmol/L 21.0-32.0 [facility] Creatinine [Mass/Vol] 1.61 mg/dL High 0.70-1.30 [facility] GFR/1.73 sq M.predicted MDRD (S/P/Bld) [Vol rate/Area] 54 mL/min/{1.73_m2} Low >=60 [facility] Glucose [Mass/Vol] 136 mg/dL High 74-106 [facility] Magnesium [Mass/Vol] 1.7 mg/dL Low 1.8-2.4 [facility] Potassium [Moles/Vol] 5.1 mmol/L 3.5-5.1 [facility] Protein [Mass/Vol] 6.2 g/dL Low 6.4-8.2 [facility] Sodium [Moles/Vol] 134 mmol/L Low 136-145 [facility] Urea nitrogen [Mass/Vol] 25.0 mg/dL High 7.0-18.0 [facility] Urea nitrogen/Creatinine [Mass ratio] 15.5 mg/mg [facility] Laboratory - Hematology and Cell countson 10-04-2023 ESR (Bld) [Velocity] 117 mm/h High <=20 [facility] Immature granulocytes/100 WBC (Bld) 0.9 % High 0.0-0.5 [facility] Leukocytes [#/volume] correc jorge for nucleated erythrocytes in Blood by Automated counon 10-04-2023 WBC corrected for nucl RBC Auto (Bld) [#/Vol] 11.5 10 3/uL High 4.0-11.0 [facility] Lymphocytes Auto (Bld) [#/Vo l]on 10-04-2023 Lymphocytes (Bld) [#/Vol] 1.3 10 3/uL 1.2-3.8 [facility] Lymphocytes/100 WBC Auto (Bl d)on 10-04-2023 Lymphocytes/100 WBC (Bld) 10.9 % Low 20.5-60.0 [facility] MCH Auto (RBC) [Entitic mass ]on 10-04-2023 MCH (RBC) [Entitic mass] 22.4 pg Low 25.9-34.0 [facility] MCHC Auto (RBC) [Mass/Vol]on 10-04-2023 MCHC (RBC) [Mass/Vol] 29.5 g/dL Low 29.9-35.2 [facility] MCV Auto (RBC) [Entitic vol] on 10-04-2023 MCV (RBC) [Entitic vol] 75.9 fL Low 80.0-94.0 [facility] Monocytes Auto (Bld) [#/Vol] on 10-04-2023 Monocytes (Bld) [#/Vol] 1.4 10 3/uL High 0.3-0.8 [facility] Monocytes/100 WBC Auto (Bld) on 10-04-2023 Monocytes/100 WBC (Bld) 12.4 % High 1.7-12.0 [facility] Neutrophils Auto (Bld) [#/Vo l]on 10-04-2023 Neutrophils (Bld) [#/Vol] 8.3 10 3/uL High 1.4-6.5 [facility] Neutrophils/100 WBC Auto (Bl d)on 10-04-2023 Neutrophils/100 WBC (Bld) 71.7 % 43.0-75.0 [facility] No Panel Informationon 10-03 Eosinophils # (Auto) 0.4 10 3/uL 0.0-0.7 [facility] Immature Granulocyte # (Auto) 0.10 10 3/uL High 0.00-0.03 [facility] Platelet mean volume Auto (B ld) [Entitic vol]on 10-04-2023 Platelet mean volume (Bld) [Entitic vol] 11.5 fL 9.5-13.5 [facility] Platelets Auto (Bld) [#/Vol] on 10-04-2023 Platelets (Bld) [#/Vol] 154 10 3/uL 150-450 [facility] RBC Auto (Bld) [#/Vol]on RBC (Bld) [#/Vol] 3.53 10 6/uL Low 4.70-6.10 [facility] Serum or plasma albumin/glob ulin mass ratioon 10-04-2023 Albumin/Globulin [Mass ratio] 0.4 {ratio} [facility] Serum or plasma anion gap de terminationon 10-04-2023 Anion gap [Moles/Vol] 12.1 [facility] Basophils Auto (Bld) [#/Vol] on 10-03-2023 Basophils (Bld) [#/Vol] 0.1 10 3/uL 0.0-0.1 [facility] Basophils/100 WBC Auto (Bld) on 10-03-2023 Basophils/100 WBC (Bld) 0.7 % 0.2-2.0 [facility] Eosinophils/100 WBC Auto (Bl d)on 10-03-2023 Eosinophils/100 WBC (Bld) 2.7 % 0.9-7.0 [facility] Erythrocyte distribution wid th Auto (RBC) [Ratio]on 10-03-2023 Erythrocyte distribution width (RBC) [Ratio] 19.2 % High 11.0-15.0 [facility] Estimated glomerular filtrat ion rate (GFR) non- Americanon 10-03-2023 GFR/1.73 sq M.predicted among non-blacks MDRD (S/P/Bld) [Vol rate/Area] 46 mL/min/{1.73_m2} Low >=60 [facility] Globulin Calc (S) [Mass/Vol] on 10-03-2023 Globulin (S) [Mass/Vol] 4.1 g/dL [facility] Hematocrit Auto (Bld) [Volum e fraction]on 10-03-2023 Hematocrit (Bld) [Volume fraction] 26.4 % Low 42.0-54.0 [facility] Hemoglobin [Mass/volume] in Bloodon 10-03-2023 Hemoglobin (Bld) [Mass/Vol] 8.1 g/dL Low 14.0-18.0 [facility] Laboratory - Chemistry and C hemistry - challengeon 10-03-2023 Albumin [Mass/Vol] 1.9 g/dL Low 3.4-5.0 [facility] ALP [Catalytic activity/Vol] 140 U/L High 46-116 [facility] ALT [Catalytic activity/Vol] 17 U/L 16-63 [facility] AST [Catalytic activity/Vol] 21 U/L 15-37 [facility] Bilirubin [Mass/Vol] 0.3 mg/dL 0.2-1.0 [facility] Calcium [Mass/Vol] 6.7 mg/dL Low 8.5-10.1 [facility] Chloride [Moles/Vol] 101 mmol/L 98-107 [facility] CO2 [Moles/Vol] 23.9 mmol/L 21.0-32.0 [facility] Creatinine [Mass/Vol] 1.57 mg/dL High 0.70-1.30 [facility] GFR/1.73 sq M.predicted MDRD (S/P/Bld) [Vol rate/Area] 55 mL/min/{1.73_m2} Low >=60 [facility] Glucose [Mass/Vol] 142 mg/dL High 74-106 [facility] Magnesium [Mass/Vol] 1.3 mg/dL Low 1.8-2.4 [facility] Potassium [Moles/Vol] 4.8 mmol/L 3.5-5.1 [facility] Protein [Mass/Vol] 6.0 g/dL Low 6.4-8.2 [facility] Sodium [Moles/Vol] 134 mmol/L Low 136-145 [facility] Urea nitrogen [Mass/Vol] 23.0 mg/dL High 7.0-18.0 [facility] Urea nitrogen/Creatinine [Mass ratio] 14.6 mg/mg [facility] Laboratory - Hematology and Cell countson 10-03-2023 ESR (Bld) [Velocity] mm/h High <=20 [facility] Immature granulocytes/100 WBC (Bld) 1.0 % High 0.0-0.5 [facility] Leukocytes [#/volume] correc jorge for nucleated erythrocytes in Blood by Automated counon 10-03-2023 WBC corrected for nucl RBC Auto (Bld) [#/Vol] 11.6 10 3/uL High 4.0-11.0 [facility] Lymphocytes Auto (Bld) [#/Vo l]on 10-03-2023 Lymphocytes (Bld) [#/Vol] 1.4 10 3/uL 1.2-3.8 [facility] Lymphocytes/100 WBC Auto (Bl d)on 10-03-2023 Lymphocytes/100 WBC (Bld) 12.1 % Low 20.5-60.0 [facility] MCH Auto (RBC) [Entitic mass ]on 10-03-2023 MCH (RBC) [Entitic mass] 23.2 pg Low 25.9-34.0 [facility] MCHC Auto (RBC) [Mass/Vol]on 10-03-2023 MCHC (RBC) [Mass/Vol] 30.7 g/dL 29.9-35.2 [facility] MCV Auto (RBC) [Entitic vol] on 10-03-2023 MCV (RBC) [Entitic vol] 75.6 fL Low 80.0-94.0 [facility] Monocytes Auto (Bld) [#/Vol] on 10-03-2023 Monocytes (Bld) [#/Vol] 1.3 10 3/uL High 0.3-0.8 [facility] Monocytes/100 WBC Auto (Bld) on 10-03-2023 Monocytes/100 WBC (Bld) 10.8 % 1.7-12.0 [facility] Neutrophils Auto (Bld) [#/Vo l]on 10-03-2023 Neutrophils (Bld) [#/Vol] 8.5 10 3/uL High 1.4-6.5 [facility] Neutrophils/100 WBC Auto (Bl d)on 10-03-2023 Neutrophils/100 WBC (Bld) 72.7 % 43.0-75.0 [facility] No Panel Informationon 10-02 Eosinophils # (Auto) 0.3 10 3/uL 0.0-0.7 [facility] Immature Granulocyte # (Auto) 0.12 10 3/uL High 0.00-0.03 [facility] Platelet mean volume Auto (B ld) [Entitic vol]on 10-03-2023 Platelet mean volume (Bld) [Entitic vol] 11.3 fL 9.5-13.5 [facility] Platelets Auto (Bld) [#/Vol] on 10-03-2023 Platelets (Bld) [#/Vol] 141 10 3/uL Low 150-450 [facility] RBC Auto (Bld) [#/Vol]on RBC (Bld) [#/Vol] 3.49 10 6/uL Low 4.70-6.10 [facility] Serum or plasma albumin/glob ulin mass ratioon 10-03-2023 Albumin/Globulin [Mass ratio] 0.5 {ratio} [facility] Serum or plasma anion gap de terminationon 10-03-2023 Anion gap [Moles/Vol] 13.9 mmol/L Fi [facility] Basophils Auto (Bld) [#/Vol] on 10-02-2023 Basophils (Bld) [#/Vol] 0.0 10 3/uL 0.0-0.1 [facility] Basophils/100 WBC Auto (Bld) on 10-02-2023 Basophils/100 WBC (Bld) 0.4 % 0.2-2.0 [facility] Eosinophils/100 WBC Auto (Bl d)on 10-02-2023 Eosinophils/100 WBC (Bld) 2.2 % 0.9-7.0 [facility] Erythrocyte distribution wid th Auto (RBC) [Ratio]on 10-02-2023 Erythrocyte distribution width (RBC) [Ratio] 19.3 % High 11.0-15.0 [facility] Estimated glomerular filtrat ion rate (GFR) non- Americanon 10-02-2023 GFR/1.73 sq M.predicted among non-blacks MDRD (S/P/Bld) [Vol rate/Area] 41 mL/min/{1.73_m2} Low >=60 [facility] Globulin Calc (S) [Mass/Vol] on 10-02-2023 Globulin (S) [Mass/Vol] 4.2 g/dL [facility] Hematocrit Auto (Bld) [Volum e fraction]on 10-02-2023 Hematocrit (Bld) [Volume fraction] 26.1 % Low 42.0-54.0 [facility] Hemoglobin [Mass/volume] in Bloodon 10-02-2023 Hemoglobin (Bld) [Mass/Vol] 7.8 g/dL Low 14.0-18.0 [facility] Guy 10-02-2023 L Specimen: [id number] Received: 10/03/23 Status: [facility] [place] Num: [id number] Spec Type: Surgical Subm Dr: Paula Soto DPM, MS Tissues: A DIGIT AMPUTATION (FIRST METATARSAL RT FOOT) Procedures: HE/2, Gross/Micro L4, Decalcification Age/ Patient Sex Location Account Attending Physician Solomon Pickard SR 58/M LABELL [id number] Paula Soto DPM, MS SPEC NUM: [id number] RECD: 10/03/23 STATUS: COLTON NATH NUM: [id number] SHAKIRA: 10/02/[address]: Paula Soto DPM, MS ENTERED: 10/03/[address]: Jericho Lion SPEC TYPE: Surgical DEPT: RAMSEY MARCANO ORDERED: HE/2, Gross/Micro L4, Decalcification ORDERED: , Gross/Micro L4, [...] firm yellow- pink spongy bone matrix. A desk representative longitudinal section is bisected and submitted following decalcification in cassettes A1?A2. Clinical history: Right diabetic foot infection CPT Codes 61254 Specimen: [id number] Received: 10/03/23 Status: COLTON Tayler Num: [id number] Spec Type: Surgical Subm Dr: Paula Soto,LINDSEY, MS Tissues: A DIGIT AMPUTATION (FIRST METATARSAL RT FOOT) Procedures: HE/2, Gross/Micro L4, Decalcification Patient: Solomon Pickard [id number] (Continued) Signed (signature on file) Padmini Linn MD 10/05/23 1426 Normal [facility] Laboratory - Chemistry and C hemistry - challengeon 10-02-2023 Albumin [Mass/Vol] 2.1 g/dL Low 3.4-5.0 [facility] ALP [Catalytic activity/Vol] 131 U/L High 46-116 [facility] ALT [Catalytic activity/Vol] 17 U/L 16-63 [facility] AST [Catalytic activity/Vol] 13 U/L Low 15-37 [facility] Bilirubin [Mass/Vol] 0.3 mg/dL 0.2-1.0 [facility] Calcium [Mass/Vol] 6.6 mg/dL Low 8.5-10.1 [facility] Chloride [Moles/Vol] 105 mmol/L 98-107 [facility] CO2 [Moles/Vol] 24.3 mmol/L 21.0-32.0 [facility] Creatinine [Mass/Vol] 1.72 mg/dL High 0.70-1.30 [facility] GFR/1.73 sq M.predicted MDRD (S/P/Bld) [Vol rate/Area] 50 mL/min/{1.73_m2} Low >=60 [facility] Glucose [Mass/Vol] 156 mg/dL High 74-106 [facility] Magnesium [Mass/Vol] 1.5 mg/dL Low 1.8-2.4 [facility] Potassium [Moles/Vol] 4.0 mmol/L 3.5-5.1 [facility] Protein [Mass/Vol] 6.3 g/dL Low 6.4-8.2 [facility] Sodium [Moles/Vol] 139 mmol/L 136-145 [facility] Urea nitrogen [Mass/Vol] 27.0 mg/dL High 7.0-18.0 [facility] Urea nitrogen/Creatinine [Mass ratio] 15.7 mg/mg [facility] Laboratory - Hematology and Cell countson 10-02-2023 Immature granulocytes/100 WBC (Bld) 0.4 % 0.0-0.5 [facility] ESR (Bld) [Velocity] 110 mm/h High <=20 [facility] Laboratory - Microbiology an d Antimicrobial susceptibilityOrdered By: Truman Bryant on 10-02-2023 Microscopic observation Gram stain Nom (Unsp spec) [facility] Leukocytes [#/volume] correc jorge for nucleated erythrocytes in Blood by Automated counon 10-02-2023 WBC corrected for nucl RBC Auto (Bld) [#/Vol] 8.5 10 3/uL 4.0-11.0 [facility] Lymphocytes Auto (Bld) [#/Vo l]on 10-02-2023 Lymphocytes (Bld) [#/Vol] 1.5 10 3/uL 1.2-3.8 [facility] Lymphocytes/100 WBC Auto (Bl d)on 10-02-2023 Lymphocytes/100 WBC (Bld) 17.3 % Low 20.5-60.0 [facility] MCH Auto (RBC) [Entitic mass ]on 10-02-2023 MCH (RBC) [Entitic mass] 22.5 pg Low 25.9-34.0 [facility] MCHC Auto (RBC) [Mass/Vol]on 10-02-2023 MCHC (RBC) [Mass/Vol] 29.9 g/dL 29.9-35.2 [facility] MCV Auto (RBC) [Entitic vol] on 10-02-2023 MCV (RBC) [Entitic vol] 75.2 fL Low 80.0-94.0 [facility] Monocytes Auto (Bld) [#/Vol] on 10-02-2023 Monocytes (Bld) [#/Vol] 0.8 10 3/uL 0.3-0.8 [facility] Monocytes/100 WBC Auto (Bld) on 10-02-2023 Monocytes/100 WBC (Bld) 9.1 % 1.7-12.0 [facility] Neutrophils Auto (Bld) [#/Vo l]on 10-02-2023 Neutrophils (Bld) [#/Vol] 6.0 10 3/uL 1.4-6.5 [facility] Neutrophils/100 WBC Auto (Bl d)on 10-02-2023 Neutrophils/100 WBC (Bld) 70.6 % 43.0-75.0 [facility] No Panel Informationon 10-01 Eosinophils # (Auto) 0.2 10 3/uL 0.0-0.7 [facility] Immature Granulocyte # (Auto) 0.03 10 3/uL 0.00-0.03 [facility] Fungal Smear Result [facility] Miscellaneous Test Comment See comment [facility] Comment on above: Specimen Source: JONO TRT - Foot Right - Foot Rt - [id number] No Panel InformationOrdered By: Truman Bryant on 10-02-2023 Tissue Culture [facility] No Panel InformationOrdered By: Paula Soto on 10-02-2023 Acid Fast Smear [facility] AFB Specimen Processing [facility] Platelet mean volume Auto (B ld) [Entitic vol]on 10-02-2023 Platelet mean volume (Bld) [Entitic vol] 10.6 fL 9.5-13.5 [facility] Platelets Auto (Bld) [#/Vol] on 10-02-2023 Platelets (Bld) [#/Vol] 142 10 3/uL Low 150-450 [facility] RBC Auto (Bld) [#/Vol]on RBC (Bld) [#/Vol] 3.47 10 6/uL Low 4.70-6.10 [facility] Serum or plasma albumin/glob ulin mass ratioon 10-02-2023 Albumin/Globulin [Mass ratio] 0.5 {ratio} [facility] Serum or plasma anion gap de terminationon 10-02-2023 Anion gap [Moles/Vol] 13.7 [facility] Basophils Auto (Bld) [#/Vol] on 10-01-2023 Basophils (Bld) [#/Vol] 0.0 10 3/uL 0.0-0.1 [facility] Basophils/100 WBC Auto (Bld) on 10-01-2023 Basophils/100 WBC (Bld) 0.4 % 0.2-2.0 [facility] Eosinophils/100 WBC Auto (Bl d)on 10-01-2023 Eosinophils/100 WBC (Bld) 1.7 % 0.9-7.0 [facility] Erythrocyte distribution wid th Auto (RBC) [Ratio]on 10-01-2023 Erythrocyte distribution width (RBC) [Ratio] 18.5 % High 11.0-15.0 [facility] Estimated glomerular filtrat ion rate (GFR) non- Americanon 10-01-2023 GFR/1.73 sq M.predicted among non-blacks MDRD (S/P/Bld) [Vol rate/Area] 27 mL/min/{1.73_m2} Low >=60 [facility] Globulin Calc (S) [Mass/Vol] on 10-01-2023 Globulin (S) [Mass/Vol] 4.0 g/dL [facility] Hematocrit Auto (Bld) [Volum e fraction]on 10-01-2023 Hematocrit (Bld) [Volume fraction] 26.5 % Low 42.0-54.0 [facility] Hemoglobin [Mass/volume] in Bloodon 10-01-2023 Hemoglobin (Bld) [Mass/Vol] 8.0 g/dL Low 14.0-18.0 [facility] Laboratory - Chemistry and C hemistry - challengeon 10-01-2023 Lactate [Moles/Vol] 1.8 mmol/L 0.4-2.0 [facility] Albumin [Mass/Vol] 1.9 g/dL Low 3.4-5.0 [facility] ALP [Catalytic activity/Vol] 113 U/L 46-116 [facility] ALT [Catalytic activity/Vol] 17 U/L 16-63 [facility] AST [Catalytic activity/Vol] 14 U/L Low 15-37 [facility] Bilirubin [Mass/Vol] 0.3 mg/dL 0.2-1.0 [facility] Calcium [Mass/Vol] 5.7 mg/dL Low 8.5-10.1 [facility] Comment on above: RESULTS CALLED TO Patricio Genao(RN)@BY SKY AndersonT at 0619 Chloride [Moles/Vol] 102 mmol/L 98-107 [facility] CO2 [Moles/Vol] 20.4 mmol/L Low 21.0-32.0 [facility] Creatinine [Mass/Vol] 2.46 mg/dL High 0.70-1.30 [facility] GFR/1.73 sq M.predicted MDRD (S/P/Bld) [Vol rate/Area] 33 mL/min/{1.73_m2} Low >=60 [facility] Glucose [Mass/Vol] 67 mg/dL Low 74-106 [facility] Magnesium [Mass/Vol] 0.8 mg/dL Low 1.8-2.4 [facility] Comment on above: RESULTS CALLED TO Patricio Genao (RN)@BY SOFI[address] Way at 0601 Potassium [Moles/Vol] 3.1 mmol/L Low 3.5-5.1 [facility] Protein [Mass/Vol] 5.9 g/dL Low 6.4-8.2 [facility] Sodium [Moles/Vol] 138 mmol/L 136-145 [facility] Urea nitrogen [Mass/Vol] 28.0 mg/dL High 7.0-18.0 [facility] Urea nitrogen/Creatinine [Mass ratio] 11.4 mg/mg [facility] Laboratory - Hematology and Cell countson 10-01-2023 ESR (Bld) [Velocity] 96 mm/h High <=20 [facility] Immature granulocytes/100 WBC (Bld) 0.6 % High 0.0-0.5 [facility] Leukocytes [#/volume] correc jorge for nucleated erythrocytes in Blood by Automated counon 10-01-2023 WBC corrected for nucl RBC Auto (Bld) [#/Vol] 10.0 10 3/uL 4.0-11.0 [facility] Lymphocytes Auto (Bld) [#/Vo l]on 10-01-2023 Lymphocytes (Bld) [#/Vol] 1.3 10 3/uL 1.2-3.8 [facility] Lymphocytes/100 WBC Auto (Bl d)on 10-01-2023 Lymphocytes/100 WBC (Bld) 12.8 % Low 20.5-60.0 [facility] MCH Auto (RBC) [Entitic mass ]on 10-01-2023 MCH (RBC) [Entitic mass] 22.4 pg Low 25.9-34.0 [facility] MCHC Auto (RBC) [Mass/Vol]on 10-01-2023 MCHC (RBC) [Mass/Vol] 30.2 g/dL 29.9-35.2 [facility] MCV Auto (RBC) [Entitic vol] on 10-01-2023 MCV (RBC) [Entitic vol] 74.2 fL Low 80.0-94.0 [facility] Monocytes Auto (Bld) [#/Vol] on 10-01-2023 Monocytes (Bld) [#/Vol] 0.7 10 3/uL 0.3-0.8 [facility] Monocytes/100 WBC Auto (Bld) on 10-01-2023 Monocytes/100 WBC (Bld) 6.9 % 1.7-12.0 [facility] Neutrophils Auto (Bld) [#/Vo l]on 10-01-2023 Neutrophils (Bld) [#/Vol] 7.8 10 3/uL High 1.4-6.5 [facility] Neutrophils/100 WBC Auto (Bl d)on 10-01-2023 Neutrophils/100 WBC (Bld) 77.6 % High 43.0-75.0 [facility] No Panel Informationon 09-30 C-Reactive Protein, Quantitative 10.58 mg/dL High <=0.50 [facility] Eosinophils # (Auto) 0.2 10 3/uL 0.0-0.7 [facility] Immature Granulocyte # (Auto) 0.06 10 3/uL High 0.00-0.03 [facility] Troponin I High Sensitivity 8.3 pg/mL 4.0-76.1 [facility] Comment on above: CUT-OFF POINTS HAVE [...] Partial Pressure CO2 30.4 mm[Hg] Low 40.0-52.0 [facility] Venous Blood pH 7.421 7.330-7.43 0 [facility] Platelet mean volume Auto (B ld) [Entitic vol]on 10-01-2023 Platelet mean volume (Bld) [Entitic vol] 11.2 fL 9.5-13.5 [facility] Platelets Auto (Bld) [#/Vol] on 10-01-2023 Platelets (Bld) [#/Vol] 164 10 3/uL 150-450 [facility] RBC Auto (Bld) [#/Vol]on RBC (Bld) [#/Vol] 3.57 10 6/uL Low 4.70-6.10 [facility] Serum or plasma albumin/glob ulin mass ratioon 10-01-2023 Albumin/Globulin [Mass ratio] 0.5 {ratio} [facility] Serum or plasma anion gap de terminationon 10-01-2023 Anion gap [Moles/Vol] 18.7 mmol/L [facility] Automated epithelial cells c ount in urine sediment (number/area)on 09-30-2023 Epithelial cells Auto (Urine sed) [#/Area] NONE SEEN #/LPF NONE/RARE [facility] Automated leukocytes count i n urine sediment (number/area)on 09-30-2023 WBC Auto (Urine sed) [#/Area] NONE SEEN #/HPF 0-2 [facility] Automated urine specific gra vity by refractometryon 09-30-2023 Specific gravity Refractometry automated (U) [Rel density] <=1.005 Abnormal 1.005-1.02 5 [facility] Basophils Auto (Bld) [#/Vol] on 09-30-2023 Basophils (Bld) [#/Vol] 0.1 10 3/uL 0.0-0.1 [facility] Basophils/100 WBC Auto (Bld) on 09-30-2023 Basophils/100 WBC (Bld) 0.4 % 0.2-2.0 [facility] Bilirubin Auto test strip (U ) [Mass/Vol]on 09-30-2023 Bilirubin (U) [Mass/Vol] Negative NEGATIVE [facility] Casts typing in urine sedime nt by light microscopyon 09-30-2023 Casts LM Nom (Urine sed) NONE SEEN #/LPF NONE SEEN [facility] Color Auto (U)on 09-30-2023 Color (U) LT. YELLOW YELLOW [facility] Eosinophils/100 WBC Auto (Bl d)on 09-30-2023 Eosinophils/100 WBC (Bld) 1.4 % 0.9-7.0 [facility] Erythrocyte distribution wid th Auto (RBC) [Ratio]on 09-30-2023 Erythrocyte distribution width (RBC) [Ratio] 19.0 % High 11.0-15.0 [facility] Estimated glomerular filtrat ion rate (GFR) non- Americanon 09-30-2023 GFR/1.73 sq M.predicted among non-blacks MDRD (S/P/Bld) [Vol rate/Area] 19 mL/min/{1.73_m2} Low >=60 [facility] Globulin Calc (S) [Mass/Vol] on 09-30-2023 Globulin (S) [Mass/Vol] 4.8 g/dL [facility] Hematocrit Auto (Bld) [Volum e fraction]on 09-30-2023 Hematocrit (Bld) [Volume fraction] 32.9 % Low 42.0-54.0 [facility] Hemoglobin [Mass/volume] in Bloodon 09-30-2023 Hemoglobin (Bld) [Mass/Vol] 10.0 g/dL Low 14.0-18.0 [facility] INR in Platelet poor plasma by Coagulation assayon 09-30-2023 INR Coag (PPP) [Relative time] 1.23 {INR} [facility] Comment on above: DESIRED INR:2.0-3.0 CONDITIONS NOT LISTED BELOW2.5-3.5 FOR PROSTHETIC HEART VALVE REPLACEMENT2.5-3.5 RECURRENT THROMBOSIS Ketones Auto test strip (U) [Mass/Vol]on 09-30-2023 Ketones (U) [Mass/Vol] Negative NEGATIVE Fi [facility] Laboratory - Chemistry and C hemistry - challengeon 09-30-2023 Lactate [Moles/Vol] 4.2 mmol/L High 0.4-2.0 [facility] Comment on above: RESULTS CALLED TO Patricio Genao (RN)@BY [address] at 2312 Albumin [Mass/Vol] 2.4 g/dL Low 3.4-5.0 [facility] ALP [Catalytic activity/Vol] 145 U/L High 46-116 [facility] ALT [Catalytic activity/Vol] 17 U/L 16-63 [facility] AST [Catalytic activity/Vol] 21 U/L 15-37 [facility] Bilirubin [Mass/Vol] 0.4 mg/dL 0.2-1.0 [facility] Calcium [Mass/Vol] 5.8 mg/dL Low 8.5-10.1 [facility] Comment on above: RESULTS CALLED TO GIOVANNA CASTANON @BY Verona Hanson at 1645 Chloride [Moles/Vol] 97 mmol/L Low 98-107 [facility] CO2 [Moles/Vol] 18.3 mmol/L Low 21.0-32.0 [facility] Creatinine [Mass/Vol] 3.43 mg/dL High 0.70-1.30 [facility] GFR/1.73 sq M.predicted MDRD (S/P/Bld) [Vol rate/Area] 22 mL/min/{1.73_m2} Low >=60 [facility] Glucose [Mass/Vol] 208 mg/dL High 74-106 [facility] Magnesium [Mass/Vol] 0.5 mg/dL Low 1.8-2.4 [facility] Comment on above: RESULTS CALLED TO Giovanna Castanon @BY Marybel Hawkins, VENDOR SPECIALIST [id number] Natriuretic peptide B (Bld) [Mass/Vol] 611.0 pg/mL <=900.0 [facility] Potassium [Moles/Vol] 3.9 mmol/L 3.5-5.1 [facility] Protein [Mass/Vol] 7.2 g/dL 6.4-8.2 [facility] Sodium [Moles/Vol] 137 mmol/L 136-145 [facility] Urea nitrogen [Mass/Vol] 34.0 mg/dL High 7.0-18.0 [facility] Urea nitrogen/Creatinine [Mass ratio] 9.9 mg/mg [facility] Laboratory - Hematology and Cell countson 09-30-2023 ESR (Bld) [Velocity] 130 mm/h High <=20 [facility] Immature granulocytes/100 WBC (Bld) 0.6 % High 0.0-0.5 [facility] Leukocytes [#/volume] correc jorge for nucleated erythrocytes in Blood by Automated counon 09-30-2023 WBC corrected for nucl RBC Auto (Bld) [#/Vol] 13.9 10 3/uL High 4.0-11.0 [facility] Lymphocytes Auto (Bld) [#/Vo l]on 09-30-2023 Lymphocytes (Bld) [#/Vol] 1.4 10 3/uL 1.2-3.8 [facility] Lymphocytes/100 WBC Auto (Bl d)on 09-30-2023 Lymphocytes/100 WBC (Bld) 10.1 % Low 20.5-60.0 [facility] MCH Auto (RBC) [Entitic mass ]on 09-30-2023 MCH (RBC) [Entitic mass] 22.7 pg Low 25.9-34.0 [facility] MCHC Auto (RBC) [Mass/Vol]on 09-30-2023 MCHC (RBC) [Mass/Vol] 30.4 g/dL 29.9-35.2 [facility] MCV Auto (RBC) [Entitic vol] on 09-30-2023 MCV (RBC) [Entitic vol] 74.6 fL Low 80.0-94.0 [facility] Monocytes Auto (Bld) [#/Vol] on 09-30-2023 Monocytes (Bld) [#/Vol] 0.9 10 3/uL High 0.3-0.8 [facility] Monocytes/100 WBC Auto (Bld) on 09-30-2023 Monocytes/100 WBC (Bld) 6.7 % 1.7-12.0 [facility] Mucus LM Ql (Urine sed)on Mucus Ql (Urine sed) NONE SEEN NONE SEEN [facility] Neutrophils Auto (Bld) [#/Vo l]on 09-30-2023 Neutrophils (Bld) [#/Vol] 11.2 10 3/uL High 1.4-6.5 [facility] Neutrophils/100 WBC Auto (Bl d)on 09-30-2023 Neutrophils/100 WBC (Bld) 80.8 % High 43.0-75.0 [facility] No Panel Informationon 09-29 Troponin I High Sensitivity 7.9 pg/mL 4.0-76.1 [facility] Comment on above: CUT-OFF POINTS HAVE [...] Partial Pressure CO2 29.6 mm[Hg] Low 40.0-52.0 [facility] Venous Blood pH 7.405 7.330-7.43 0 [facility] Urine Culture [facility] C-Reactive Protein, Quantitative 14.76 mg/dL High <=0.50 [facility] Eosinophils # (Auto) 0.2 10 3/uL 0.0-0.7 [facility] Immature Granulocyte # (Auto) 0.09 10 3/uL High 0.00-0.03 [facility] No Panel InformationOrdered By: Chandrika Castanon on 09-30-2023 Blood Culture 2 [facility] Wound Culture [facility] Blood Culture 1 [facility] Platelet mean volume Auto (B ld) [Entitic vol]on 09-30-2023 Platelet mean volume (Bld) [Entitic vol] 10.9 fL 9.5-13.5 [facility] Platelets Auto (Bld) [#/Vol] on 09-30-2023 Platelets (Bld) [#/Vol] 227 10 3/uL 150-450 [facility] Protein Auto test strip (U) [Mass/Vol]on 09-30-2023 Protein (U) [Mass/Vol] Negative NEG/TRACE [facility] Prothrombin time (PT)on 09-04 PT Coag (PPP) [Time] 12.9 s High 9.0-11.6 [facility] RBC Auto (Bld) [#/Vol]on RBC (Bld) [#/Vol] 4.41 10 6/uL Low 4.70-6.10 [facility] Serum or plasma albumin/glob ulin mass ratioon 09-30-2023 Albumin/Globulin [Mass ratio] 0.5 {ratio} [facility] Serum or plasma anion gap de terminationon 09-30-2023 Anion gap [Moles/Vol] 25.6 mmol/L [facility] Specific gravity Auto test s trip (U) [Rel density]on 09-30-2023 Specific gravity (U) [Rel density] CLEAR CLEAR [facility] Urine bacteria detection by automated methodon 09-30-2023 Bacteria Auto Ql (U) NONE SEEN #/HPF NONE SEEN [facility] Urine glucose measurement by test strip (mass/volume)on 09-30-2023 Glucose Test strip (U) [Mass/Vol] 500 mg/dL Abnormal NEGATIVE [facility] Urine hemoglobin detection b y automated test stripon 09-30-2023 Hemoglobin Auto test strip Ql (U) TRACE-I NEGATIVE [facility] Urine nitrite detection by a utomated test stripon 09-30-2023 Nitrite Auto test strip Ql (U) Negative NEGATIVE [facility] Urine sediment crystal ident ification by light microscopyon 09-30-2023 Crystals LM Nom (Urine sed) None Seen #/HPF None Seen [facility] Urine sediment leukocyte cou nt by microscopy (number/high power field)on 09-30-2023 WBC LM.HPF (Urine sed) [#/Area] NONE SEEN #/HPF NONE SEEN [facility] Urobilinogen Auto test strip (U) [Mass/Vol]on 09-30-2023 Urobilinogen Qn (U) 0.2 {Brendan'U}/dL 0.2-1.0 [facility] pH Auto test strip (U)on pH (U) 5.5 [pH] 5.0-9.0 [facility] Guy 09-21-2023 L Specimen: [id number] Received: 09/21/23 Status: SOUDaniel Req Num: [id number] Spec Type: Surgical Subm Dr: Paula Soto DPM, MS Tissues: A Bone Fragments - Other than Path Fracture Procedures: HE, Gross/Micro L3, Decalcification Age/ Patient Sex Location Account Attending Physician Solomon Pickard SR 58/M LABELL [id number] Paula Soto DPM, MS SPEC NUM: [id number] RECD: 09/21/23 STATUS: COLTON RELinda NUM: [id number] SHAKIRA: 09/21/[address]: Paula Soto DPM, MS ENTERED: 09/21/[address] [facility] [address]: SPEC TYPE: Surgical DEPT: RAMSEY MARCANO ENTERED BY: [id number] RECV BY: [id number] ORDERED: HE, Gross/Micro L3, Decalcification ORDERED: HE, [...] excisional debridement with skin substitute. CPT Codes 86617, 93756 Specimen: [id number] Received: 09/21/23 Status: COLTON Nath Num: [id number] Spec Type: Surgical Subm Dr: Paula Soto,LINDSEY, MS Tissues: A Bone Fragments - Other than Path Fracture Procedures: LULU, Gross/Micro L3, Decalcification Patient: Solomon Pickard SR [id number] (Continued) Signed (signature on file) Ryan-Jerry Sotelo MD 09/26/23 0843 Normal [facility] Laboratory - Microbiology an d Antimicrobial susceptibilityOrdered By: Jenaro Lynch on 09-21-2023 Microscopic observation Gram stain Nom (Unsp spec) [facility] Activated partial thrombopla stin time (aPTT) in platelet poor plasma by coagulation aon 09-18-2023 aPTT Coag (PPP) [Time] 32.0 s 22.3-36.2 [facility] Basophils Auto (Bld) [#/Vol] on 09-18-2023 Basophils (Bld) [#/Vol] 0.1 10 3/uL 0.0-0.1 [facility] Basophils/100 WBC Auto (Bld) on 09-18-2023 Basophils/100 WBC (Bld) 0.9 % 0.2-2.0 [facility] Eosinophils/100 WBC Auto (Bl d)on 09-18-2023 Eosinophils/100 WBC (Bld) 2.3 % 0.9-7.0 [facility] Erythrocyte distribution wid th Auto (RBC) [Ratio]on 09-18-2023 Erythrocyte distribution width (RBC) [Ratio] 18.8 % High 11.0-15.0 [facility] Estimated glomerular filtrat ion rate (GFR) non- Americanon 09-18-2023 GFR/1.73 sq M.predicted among non-blacks MDRD (S/P/Bld) [Vol rate/Area] 27 mL/min/{1.73_m2} Low >=60 [facility] Hematocrit Auto (Bld) [Volum e fraction]on 09-18-2023 Hematocrit (Bld) [Volume fraction] 35.0 % Low 42.0-54.0 [facility] Hemoglobin [Mass/volume] in Bloodon 09-18-2023 Hemoglobin (Bld) [Mass/Vol] 10.3 g/dL Low 14.0-18.0 [facility] INR in Platelet poor plasma by Coagulation assayon 09-18-2023 INR Coag (PPP) [Relative time] 1.08 {INR} [facility] Comment on above: DESIRED INR:2.0-3.0 CONDITIONS NOT LISTED BELOW2.5-3.5 FOR PROSTHETIC HEART VALVE REPLACEMENT2.5-3.5 RECURRENT THROMBOSIS Laboratory - Chemistry and C hemistry - challengeon 09-18-2023 Calcium [Mass/Vol] 8.9 mg/dL 8.5-10.1 [facility] Chloride [Moles/Vol] 97 mmol/L Low 98-107 [facility] CO2 [Moles/Vol] 28.2 mmol/L 21.0-32.0 [facility] Creatinine [Mass/Vol] 2.47 mg/dL High 0.70-1.30 [facility] GFR/1.73 sq M.predicted MDRD (S/P/Bld) [Vol rate/Area] 33 mL/min/{1.73_m2} Low >=60 [facility] Glucose [Mass/Vol] 200 mg/dL High 74-106 [facility] Potassium [Moles/Vol] 3.7 mmol/L 3.5-5.1 [facility] Sodium [Moles/Vol] 137 mmol/L 136-145 [facility] Urea nitrogen [Mass/Vol] 23.0 mg/dL High 7.0-18.0 [facility] Urea nitrogen/Creatinine [Mass ratio] 9.3 mg/mg [facility] Laboratory - Hematology and Cell countson 09-18-2023 Immature granulocytes/100 WBC (Bld) 0.6 % High 0.0-0.5 [facility] Leukocytes [#/volume] correc jorge for nucleated erythrocytes in Blood by Automated counon 09-18-2023 WBC corrected for nucl RBC Auto (Bld) [#/Vol] 12.4 10 3/uL High 4.0-11.0 [facility] Lymphocytes Auto (Bld) [#/Vo l]on 09-18-2023 Lymphocytes (Bld) [#/Vol] 2.4 10 3/uL 1.2-3.8 [facility] Lymphocytes/100 WBC Auto (Bl d)on 09-18-2023 Lymphocytes/100 WBC (Bld) 19.6 % Low 20.5-60.0 [facility] MCH Auto (RBC) [Entitic mass ]on 09-18-2023 MCH (RBC) [Entitic mass] 22.2 pg Low 25.9-34.0 [facility] MCHC Auto (RBC) [Mass/Vol]on 09-18-2023 MCHC (RBC) [Mass/Vol] 29.4 g/dL Low 29.9-35.2 [facility] MCV Auto (RBC) [Entitic vol] on 09-18-2023 MCV (RBC) [Entitic vol] 75.3 fL Low 80.0-94.0 [facility] Monocytes Auto (Bld) [#/Vol] on 09-18-2023 Monocytes (Bld) [#/Vol] 1.2 10 3/uL High 0.3-0.8 [facility] Monocytes/100 WBC Auto (Bld) on 09-18-2023 Monocytes/100 WBC (Bld) 10.0 % 1.7-12.0 [facility] Neutrophils Auto (Bld) [#/Vo l]on 09-18-2023 Neutrophils (Bld) [#/Vol] 8.2 10 3/uL High 1.4-6.5 [facility] Neutrophils/100 WBC Auto (Bl d)on 09-18-2023 Neutrophils/100 WBC (Bld) 66.6 % 43.0-75.0 [facility] No Panel Informationon 09-17 Eosinophils # (Auto) 0.3 10 3/uL 0.0-0.7 [facility] Immature Granulocyte # (Auto) 0.07 10 3/uL High 0.00-0.03 [facility] Platelet mean volume Auto (B ld) [Entitic vol]on 09-18-2023 Platelet mean volume (Bld) [Entitic vol] 10.9 fL 9.5-13.5 [facility] Platelets Auto (Bld) [#/Vol] on 09-18-2023 Platelets (Bld) [#/Vol] 300 10 3/uL 150-450 [facility] Prothrombin time (PT)on 09-03 PT Coag (PPP) [Time] 11.4 s 9.0-11.6 [facility] RBC Auto (Bld) [#/Vol]on RBC (Bld) [#/Vol] 4.65 10 6/uL Low 4.70-6.10 [facility] Serum or plasma anion gap de terminationon 09-18-2023 Anion gap [Moles/Vol] 15.5 mmol/L [facility] - Microbiology an d Antimicrobial susceptibilityOrdered By: Jenaro Lynch on 08-10-2023 Microscopic observation Gram stain Nom (Unsp spec) [facility] No Panel Informationon 08-09 Fungal Smear Result [facility] Miscellaneous Test Comment See comment [facility] Comment on above: Specimen Source: JONO TRT - Foot Right - Foot Rt - 604.000 No Panel InformationOrdered By: Jenaro Lynch on 08-10-2023 Acid Fast Culture [facility] Acid Fast Smear [facility] AFB Specimen Processing [facility] Tissue Culture [facility] Basophils Auto (Bld) [#/Vol] on 08-07-2023 Basophils (Bld) [#/Vol] 0.1 10 3/uL 0.0-0.1 [facility] Basophils/100 WBC Auto (Bld) on 08-07-2023 Basophils/100 WBC (Bld) 0.7 % 0.2-2.0 [facility] Eosinophils/100 WBC Auto (Bl d)on 08-07-2023 Eosinophils/100 WBC (Bld) 3.9 % 0.9-7.0 [facility] Erythrocyte distribution wid th Auto (RBC) [Ratio]on 08-07-2023 Erythrocyte distribution width (RBC) [Ratio] 16.9 % 11.0-15.0 [facility] Estimated glomerular filtrat ion rate (GFR) non- Americanon 08-07-2023 GFR/1.73 sq M.predicted among non-blacks MDRD (S/P/Bld) [Vol rate/Area] 42 mL/min/{1.73_m2} >=60 [facility] Globulin Calc (S) [Mass/Vol] on 08-07-2023 Globulin (S) [Mass/Vol] 4.0 g/dL [facility] Hematocrit Auto (Bld) [Volum e fraction]on 08-07-2023 Hematocrit (Bld) [Volume fraction] 31.5 % 42.0-54.0 [facility] Hemoglobin [Mass/volume] in Bloodon 08-07-2023 Hemoglobin (Bld) [Mass/Vol] 9.4 g/dL 14.0-18.0 [facility] Laboratory - Chemistry and C hemistry - challengeon 08-07-2023 Albumin [Mass/Vol] 2.1 g/dL 3.4-5.0 [facility] ALP [Catalytic activity/Vol] 144 U/L 46-116 [facility] ALT [Catalytic activity/Vol] 21 U/L 16-63 [facility] AST [Catalytic activity/Vol] 25 U/L 15-37 [facility] Bilirubin [Mass/Vol] 0.4 mg/dL 0.2-1.0 [facility] Calcium [Mass/Vol] 8.1 mg/dL 8.5-10.1 [facility] Chloride [Moles/Vol] 102 mmol/L 98-107 [facility] CO2 [Moles/Vol] 24.7 mmol/L 21.0-32.0 [facility] Creatinine [Mass/Vol] 1.70 mg/dL 0.70-1.30 [facility] GFR/1.73 sq M.predicted MDRD (S/P/Bld) [Vol rate/Area] 50 mL/min/{1.73_m2} >=60 [facility] Glucose [Mass/Vol] 188 mg/dL 74-106 [facility] Potassium [Moles/Vol] 4.6 mmol/L 3.5-5.1 [facility] Protein [Mass/Vol] 6.1 g/dL 6.4-8.2 [facility] Sodium [Moles/Vol] 135 mmol/L 136-145 [facility] Urea nitrogen [Mass/Vol] 33.0 mg/dL 7.0-18.0 [facility] Urea nitrogen/Creatinine [Mass ratio] 19.4 mg/mg [facility] Laboratory - Hematology and Cell countson 08-07-2023 Immature granulocytes/100 WBC (Bld) 0.7 % 0.0-0.5 [facility] Leukocytes [#/volume] correc jorge for nucleated erythrocytes in Blood by Automated counon 08-07-2023 WBC corrected for nucl RBC Auto (Bld) [#/Vol] 12.0 10 3/uL 4.0-11.0 [facility] Lymphocytes Auto (Bld) [#/Vo l]on 08-07-2023 Lymphocytes (Bld) [#/Vol] 1.5 10 3/uL 1.2-3.8 [facility] Lymphocytes/100 WBC Auto (Bl d)on 08-07-2023 Lymphocytes/100 WBC (Bld) 12.4 % 20.5-60.0 [facility] MCH Auto (RBC) [Entitic mass ]on 08-07-2023 MCH (RBC) [Entitic mass] 22.5 pg 25.9-34.0 [facility] MCHC Auto (RBC) [Mass/Vol]on 08-07-2023 MCHC (RBC) [Mass/Vol] 29.8 g/dL 29.9-35.2 [facility] MCV Auto (RBC) [Entitic vol] on 08-07-2023 MCV (RBC) [Entitic vol] 75.4 fL 80.0-94.0 [facility] Monocytes Auto (Bld) [#/Vol] on 08-07-2023 Monocytes (Bld) [#/Vol] 1.2 10 3/uL 0.3-0.8 [facility] Monocytes/100 WBC Auto (Bld) on 08-07-2023 Monocytes/100 WBC (Bld) 10.1 % 1.7-12.0 [facility] Neutrophils Auto (Bld) [#/Vo l]on 08-07-2023 Neutrophils (Bld) [#/Vol] 8.7 10 3/uL 1.4-6.5 [facility] Neutrophils/100 WBC Auto (Bl d)on 08-07-2023 Neutrophils/100 WBC (Bld) 72.2 % 43.0-75.0 [facility] No Panel Informationon 08-06 Eosinophils # (Auto) 0.5 10 3/uL 0.0-0.7 [facility] Immature Granulocyte # (Auto) 0.09 10 3/uL 0.00-0.03 [facility] Platelet mean volume Auto (B ld) [Entitic vol]on 08-07-2023 Platelet mean volume (Bld) [Entitic vol] 11.7 fL 9.5-13.5 [facility] Platelets Auto (Bld) [#/Vol] on 08-07-2023 Platelets (Bld) [#/Vol] 222 10 3/uL 150-450 [facility] RBC Auto (Bld) [#/Vol]on RBC (Bld) [#/Vol] 4.18 10 6/uL 4.70-6.10 [facility] Serum or plasma albumin/glob ulin mass ratioon 08-07-2023 Albumin/Globulin [Mass ratio] 0.5 {ratio} [facility] Serum or plasma anion gap de terminationon 08-07-2023 Anion gap [Moles/Vol] 12.9 mmol/L [facility] Basophils Auto (Bld) [#/Vol] on 08-06-2023 Basophils (Bld) [#/Vol] 0.1 10 3/uL 0.0-0.1 [facility] Basophils/100 WBC Auto (Bld) on 08-06-2023 Basophils/100 WBC (Bld) 0.7 % 0.2-2.0 [facility] Eosinophils/100 WBC Auto (Bl d)on 08-06-2023 Eosinophils/100 WBC (Bld) 3.3 % 0.9-7.0 [facility] Erythrocyte distribution wid th Auto (RBC) [Ratio]on 08-06-2023 Erythrocyte distribution width (RBC) [Ratio] 17.0 % 11.0-15.0 [facility] Estimated glomerular filtrat ion rate (GFR) non- Americanon 08-06-2023 GFR/1.73 sq M.predicted among non-blacks MDRD (S/P/Bld) [Vol rate/Area] 36 mL/min/{1.73_m2} >=60 [facility] Globulin Calc (S) [Mass/Vol] on 08-06-2023 Globulin (S) [Mass/Vol] 4.0 g/dL [facility] Hematocrit Auto (Bld) [Volum e fraction]on 08-06-2023 Hematocrit (Bld) [Volume fraction] 30.1 % 42.0-54.0 [facility] Hemoglobin [Mass/volume] in Bloodon 08-06-2023 Hemoglobin (Bld) [Mass/Vol] 8.8 g/dL 14.0-18.0 [facility] Laboratory - Chemistry and C hemistry - challengeon 08-06-2023 Albumin [Mass/Vol] 2.0 g/dL 3.4-5.0 [facility] ALP [Catalytic activity/Vol] 127 U/L 46-116 [facility] ALT [Catalytic activity/Vol] 14 U/L 16-63 [facility] AST [Catalytic activity/Vol] 16 U/L 15-37 [facility] Bilirubin [Mass/Vol] 0.4 mg/dL 0.2-1.0 [facility] Calcium [Mass/Vol] 7.9 mg/dL 8.5-10.1 [facility] Chloride [Moles/Vol] 99 mmol/L 98-107 [facility] CO2 [Moles/Vol] 25.0 mmol/L 21.0-32.0 [facility] Creatinine [Mass/Vol] 1.95 mg/dL 0.70-1.30 [facility] GFR/1.73 sq M.predicted MDRD (S/P/Bld) [Vol rate/Area] 43 mL/min/{1.73_m2} >=60 [facility] Glucose [Mass/Vol] 297 mg/dL 74-106 [facility] Potassium [Moles/Vol] 4.4 mmol/L 3.5-5.1 [facility] Protein [Mass/Vol] 6.0 g/dL 6.4-8.2 [facility] Sodium [Moles/Vol] 133 mmol/L 136-145 [facility] Urea nitrogen [Mass/Vol] 28.0 mg/dL 7.0-18.0 [facility] Urea nitrogen/Creatinine [Mass ratio] 14.4 mg/mg [facility] Laboratory - Hematology and Cell countson 08-06-2023 Immature granulocytes/100 WBC (Bld) 0.4 % 0.0-0.5 [facility] Leukocytes [#/volume] correc jorge for nucleated erythrocytes in Blood by Automated counon 08-06-2023 WBC corrected for nucl RBC Auto (Bld) [#/Vol] 10.1 10 3/uL 4.0-11.0 [facility] Lymphocytes Auto (Bld) [#/Vo l]on 08-06-2023 Lymphocytes (Bld) [#/Vol] 1.5 10 3/uL 1.2-3.8 [facility] Lymphocytes/100 WBC Auto (Bl d)on 08-06-2023 Lymphocytes/100 WBC (Bld) 14.4 % 20.5-60.0 [facility] MCH Auto (RBC) [Entitic mass ]on 08-06-2023 MCH (RBC) [Entitic mass] 22.5 pg 25.9-34.0 [facility] MCHC Auto (RBC) [Mass/Vol]on 08-06-2023 MCHC (RBC) [Mass/Vol] 29.2 g/dL 29.9-35.2 [facility] MCV Auto (RBC) [Entitic vol] on 08-06-2023 MCV (RBC) [Entitic vol] 77.0 fL 80.0-94.0 [facility] Monocytes Auto (Bld) [#/Vol] on 08-06-2023 Monocytes (Bld) [#/Vol] 1.1 10 3/uL 0.3-0.8 [facility] Monocytes/100 WBC Auto (Bld) on 08-06-2023 Monocytes/100 WBC (Bld) 10.4 % 1.7-12.0 [facility] Neutrophils Auto (Bld) [#/Vo l]on 08-06-2023 Neutrophils (Bld) [#/Vol] 7.2 10 3/uL 1.4-6.5 [facility] Neutrophils/100 WBC Auto (Bl d)on 08-06-2023 Neutrophils/100 WBC (Bld) 70.8 % 43.0-75.0 [facility] No Panel Informationon 08-05 Vancomycin Level Trough 13.6 ug/mL 5.0-20.0 [facility] Eosinophils # (Auto) 0.3 10 3/uL 0.0-0.7 [facility] Immature Granulocyte # (Auto) 0.04 10 3/uL 0.00-0.03 [facility] Platelet mean volume Auto (B ld) [Entitic vol]on 08-06-2023 Platelet mean volume (Bld) [Entitic vol] 12.2 fL 9.5-13.5 [facility] Platelets Auto (Bld) [#/Vol] on 08-06-2023 Platelets (Bld) [#/Vol] 190 10 3/uL 150-450 [facility] RBC Auto (Bld) [#/Vol]on RBC (Bld) [#/Vol] 3.91 10 6/uL 4.70-6.10 [facility] Serum or plasma albumin/glob ulin mass ratioon 08-06-2023 Albumin/Globulin [Mass ratio] 0.5 {ratio} [facility] Serum or plasma anion gap de terminationon 08-06-2023 Anion gap [Moles/Vol] 13.4 mmol/L [facility] Automated epithelial cells c ount in urine sediment (number/area)on 08-05-2023 Epithelial cells Auto (Urine sed) [#/Area] RARE #/LPF NONE/RARE [facility] Automated leukocytes count i n urine sediment (number/area)on 08-05-2023 WBC Auto (Urine sed) [#/Area] NONE SEEN #/HPF 0-2 [facility] Automated urine specific gra vity by refractometryon 08-05-2023 Specific gravity Refractometry automated (U) [Rel density] <=1.005 1.005-1.02 5 [facility] Basophils Auto (Bld) [#/Vol] on 08-05-2023 Basophils (Bld) [#/Vol] 0.1 10 3/uL 0.0-0.1 [facility] Basophils/100 WBC Auto (Bld) on 08-05-2023 Basophils/100 WBC (Bld) 0.7 % 0.2-2.0 [facility] Bilirubin Auto test strip (U ) [Mass/Vol]on 08-05-2023 Bilirubin (U) [Mass/Vol] Negative NEGATIVE [facility] Casts typing in urine sedime nt by light microscopyon 08-05-2023 Casts LM Nom (Urine sed) NONE SEEN #/LPF NONE SEEN [facility] Color Auto (U)on 08-05-2023 Color (U) LT. YELLOW YELLOW [facility] Eosinophils/100 WBC Auto (Bl d)on 08-05-2023 Eosinophils/100 WBC (Bld) 2.5 % 0.9-7.0 [facility] Erythrocyte distribution wid th Auto (RBC) [Ratio]on 08-05-2023 Erythrocyte distribution width (RBC) [Ratio] 16.8 % 11.0-15.0 [facility] Estimated glomerular filtrat ion rate (GFR) non- Americanon 08-05-2023 GFR/1.73 sq M.predicted among non-blacks MDRD (S/P/Bld) [Vol rate/Area] 42 mL/min/{1.73_m2} >=60 [facility] Globulin Calc (S) [Mass/Vol] on 08-05-2023 Globulin (S) [Mass/Vol] 4.1 g/dL [facility] Glucose mean value [Mass/vol ume] in Blood Estimated from glycated hemoglobinon 08-05-2023 Average glucose Estimated from glycated hemoglobin (Bld) [Mass/Vol] 214 mg/dL [facility] Hematocrit Auto (Bld) [Volum e fraction]on 08-05-2023 Hematocrit (Bld) [Volume fraction] 31.8 % 42.0-54.0 [facility] Hemoglobin [Mass/volume] in Bloodon 08-05-2023 Hemoglobin (Bld) [Mass/Vol] 9.4 g/dL 14.0-18.0 [facility] Ketones Auto test strip (U) [Mass/Vol]on 08-05-2023 Ketones (U) [Mass/Vol] Negative NEGATIVE [facility] - Chemistry and C hemistry - challengeon 08-05-2023 Albumin [Mass/Vol] 2.3 g/dL 3.4-5.0 [facility] ALP [Catalytic activity/Vol] 111 U/L 46-116 [facility] ALT [Catalytic activity/Vol] 11 U/L 16-63 [facility] AST [Catalytic activity/Vol] 11 U/L 15-37 [facility] Bilirubin [Mass/Vol] 0.5 mg/dL 0.2-1.0 [facility] Calcium [Mass/Vol] 8.1 mg/dL 8.5-10.1 [facility] Chloride [Moles/Vol] 101 mmol/L 98-107 [facility] CO2 [Moles/Vol] 25.6 mmol/L 21.0-32.0 [facility] Creatinine [Mass/Vol] 1.68 mg/dL 0.70-1.30 [facility] GFR/1.73 sq M.predicted MDRD (S/P/Bld) [Vol rate/Area] 51 mL/min/{1.73_m2} >=60 [facility] Glucose [Mass/Vol] 111 mg/dL 74-106 [facility] Potassium [Moles/Vol] 3.7 mmol/L 3.5-5.1 [facility] Protein [Mass/Vol] 6.4 g/dL 6.4-8.2 [facility] Sodium [Moles/Vol] 138 mmol/L 136-145 [facility] Urea nitrogen [Mass/Vol] 17.0 mg/dL 7.0-18.0 [facility] Urea nitrogen/Creatinine [Mass ratio] 10.1 mg/mg [facility] Laboratory - Hematology and Cell countson 08-05-2023 HbA1c (Bld) [Mass fraction] 9.1 % 4.5-6.2 [facility] Comment on above: ADA RECOMMENDED LIMI T 4.0 - 6.0ADA THERAPEUTIC TARGET < 7.0ACTION SUGGESTED> 7.0 Immature granulocytes/100 WBC (Bld) 0.4 % 0.0-0.5 [facility] Laboratory - Microbiology an d Antimicrobial susceptibilityOrdered By: Jenaro Lynch on 08-05-2023 Microscopic observation Gram stain Nom (Unsp spec) [facility] Leukocytes [#/volume] correc jorge for nucleated erythrocytes in Blood by Automated counon 08-05-2023 WBC corrected for nucl RBC Auto (Bld) [#/Vol] 12.3 10 3/uL 4.0-11.0 [facility] Lymphocytes Auto (Bld) [#/Vo l]on 08-05-2023 Lymphocytes (Bld) [#/Vol] 1.5 10 3/uL 1.2-3.8 [facility] Lymphocytes/100 WBC Auto (Bl d)on 08-05-2023 Lymphocytes/100 WBC (Bld) 11.8 % 20.5-60.0 [facility] MCH Auto (RBC) [Entitic mass ]on 08-05-2023 MCH (RBC) [Entitic mass] 22.4 pg 25.9-34.0 [facility] MCHC Auto (RBC) [Mass/Vol]on 08-05-2023 MCHC (RBC) [Mass/Vol] 29.6 g/dL 29.9-35.2 [facility] MCV Auto (RBC) [Entitic vol] on 08-05-2023 MCV (RBC) [Entitic vol] 75.9 fL 80.0-94.0 [facility] Monocytes Auto (Bld) [#/Vol] on 08-05-2023 Monocytes (Bld) [#/Vol] 1.3 10 3/uL 0.3-0.8 [facility] Monocytes/100 WBC Auto (Bld) on 08-05-2023 Monocytes/100 WBC (Bld) 10.7 % 1.7-12.0 [facility] Mucus LM Ql (Urine sed)on Mucus Ql (Urine sed) NONE SEEN NONE SEEN [facility] Neutrophils Auto (Bld) [#/Vo l]on 08-05-2023 Neutrophils (Bld) [#/Vol] 9.1 10 3/uL 1.4-6.5 [facility] Neutrophils/100 WBC Auto (Bl d)on 08-05-2023 Neutrophils/100 WBC (Bld) 73.9 % 43.0-75.0 [facility] No Panel Informationon 08-04 Eosinophils # (Auto) 0.3 10 3/uL 0.0-0.7 [facility] Immature Granulocyte # (Auto) 0.05 10 3/uL 0.00-0.03 [facility] Platelet mean volume Auto (B ld) [Entitic vol]on 08-05-2023 Platelet mean volume (Bld) [Entitic vol] 11.2 fL 9.5-13.5 [facility] Platelets Auto (Bld) [#/Vol] on 08-05-2023 Platelets (Bld) [#/Vol] 184 10 3/uL 150-450 [facility] Protein Auto test strip (U) [Mass/Vol]on 08-05-2023 Protein (U) [Mass/Vol] Negative NEG/TRACE [facility] RBC Auto (Bld) [#/Vol]on RBC (Bld) [#/Vol] 4.19 10 6/uL 4.70-6.10 [facility] Serum or plasma albumin/glob ulin mass ratioon 08-05-2023 Albumin/Globulin [Mass ratio] 0.6 {ratio} [facility] Serum or plasma anion gap de terminationon 08-05-2023 Anion gap [Moles/Vol] 15.1 mmol/L [facility] Specific gravity Auto test s trip (U) [Rel density]on 08-05-2023 Specific gravity (U) [Rel density] CLEAR CLEAR [facility] Urine bacteria detection by automated methodon 08-05-2023 Bacteria Auto Ql (U) TRACE #/HPF NONE SEEN [facility] Urine glucose measurement by test strip (mass/volume)on 08-05-2023 Glucose Test strip (U) [Mass/Vol] >=1000 mg/dL NEGATIVE [facility] Urine hemoglobin detection b y automated test stripon 08-05-2023 Hemoglobin Auto test strip Ql (U) Negative NEGATIVE [facility] Urine nitrite detection by a utomated test stripon 08-05-2023 Nitrite Auto test strip Ql (U) Negative NEGATIVE [facility] Urine sediment crystal ident ification by light microscopyon 08-05-2023 Crystals LM Nom (Urine sed) None Seen #/HPF None Seen [facility] Urine sediment leukocyte cou nt by microscopy (number/high power field)on 08-05-2023 WBC LM.HPF (Urine sed) [#/Area] NONE SEEN #/HPF NONE SEEN [facility] Urobilinogen Auto test strip (U) [Mass/Vol]on 08-05-2023 Urobilinogen Qn (U) 0.2 {Brendan'U}/dL 0.2-1.0 [facility] pH Auto test strip (U)on pH (U) 6.0 [pH] 5.0-9.0 [facility] Basophils Auto (Bld) [#/Vol] on 08-04-2023 Basophils (Bld) [#/Vol] 0.1 10 3/uL 0.0-0.1 [facility] Basophils/100 WBC Auto (Bld) on 08-04-2023 Basophils/100 WBC (Bld) 0.8 % 0.2-2.0 [facility] Eosinophils/100 WBC Auto (Bl d)on 08-04-2023 Eosinophils/100 WBC (Bld) 2.8 % 0.9-7.0 [facility] Erythrocyte distribution wid th Auto (RBC) [Ratio]on 08-04-2023 Erythrocyte distribution width (RBC) [Ratio] 16.9 % 11.0-15.0 [facility] Estimated glomerular filtrat ion rate (GFR) non- Americanon 08-04-2023 GFR/1.73 sq M.predicted among non-blacks MDRD (S/P/Bld) [Vol rate/Area] 33 mL/min/{1.73_m2} >=60 [facility] Globulin Calc (S) [Mass/Vol] on 08-04-2023 Globulin (S) [Mass/Vol] 4.4 g/dL [facility] Hematocrit Auto (Bld) [Volum e fraction]on 08-04-2023 Hematocrit (Bld) [Volume fraction] 32.6 % 42.0-54.0 [facility] Hemoglobin [Mass/volume] in Bloodon 08-04-2023 Hemoglobin (Bld) [Mass/Vol] 9.6 g/dL 14.0-18.0 [facility] INR in Platelet poor plasma by Coagulation assayon 08-04-2023 INR Coag (PPP) [Relative time] 1.05 {INR} [facility] Comment on above: DESIRED INR:2.0-3.0 CONDITIONS NOT LISTED BELOW2.5-3.5 FOR PROSTHETIC HEART VALVE REPLACEMENT2.5-3.5 RECURRENT THROMBOSIS Laboratory - Chemistry and C hemistry - challengeon 08-04-2023 Albumin [Mass/Vol] 2.4 g/dL 3.4-5.0 [facility] ALP [Catalytic activity/Vol] 109 U/L 46-116 [facility] ALT [Catalytic activity/Vol] 9 U/L 16-63 [facility] AST [Catalytic activity/Vol] U/L 15-37 [facility] Bilirubin [Mass/Vol] 0.4 mg/dL 0.2-1.0 [facility] Calcium [Mass/Vol] 8.0 mg/dL 8.5-10.1 [facility] Chloride [Moles/Vol] 96 mmol/L 98-107 [facility] CO2 [Moles/Vol] 29.2 mmol/L 21.0-32.0 [facility] Creatinine [Mass/Vol] 2.06 mg/dL 0.70-1.30 [facility] GFR/1.73 sq M.predicted MDRD (S/P/Bld) [Vol rate/Area] 40 mL/min/{1.73_m2} >=60 [facility] Glucose [Mass/Vol] 329 mg/dL 74-106 [facility] Potassium [Moles/Vol] 3.5 mmol/L 3.5-5.1 [facility] Protein [Mass/Vol] 6.8 g/dL 6.4-8.2 [facility] Sodium [Moles/Vol] 132 mmol/L 136-145 [facility] Urea nitrogen [Mass/Vol] 20.0 mg/dL 7.0-18.0 [facility] Urea nitrogen/Creatinine [Mass ratio] 9.7 mg/mg [facility] Laboratory - Hematology and Cell countson 08-04-2023 ESR (Bld) [Velocity] 89 mm/h <=20 [facility] Immature granulocytes/100 WBC (Bld) 0.3 % 0.0-0.5 [facility] Laboratory - Microbiology an d Antimicrobial susceptibilityOrdered By: Jenaro Lynch on 08-04-2023 Microscopic observation Gram stain Nom (Unsp spec) [facility] Leukocytes [#/volume] correc jorge for nucleated erythrocytes in Blood by Automated counon 08-04-2023 WBC corrected for nucl RBC Auto (Bld) [#/Vol] 11.6 10 3/uL 4.0-11.0 [facility] Lymphocytes Auto (Bld) [#/Vo l]on 08-04-2023 Lymphocytes (Bld) [#/Vol] 1.7 10 3/uL 1.2-3.8 [facility] Lymphocytes/100 WBC Auto (Bl d)on 08-04-2023 Lymphocytes/100 WBC (Bld) 14.9 % 20.5-60.0 [facility] MCH Auto (RBC) [Entitic mass ]on 08-04-2023 MCH (RBC) [Entitic mass] 22.3 pg 25.9-34.0 [facility] MCHC Auto (RBC) [Mass/Vol]on 08-04-2023 MCHC (RBC) [Mass/Vol] 29.4 g/dL 29.9-35.2 [facility] MCV Auto (RBC) [Entitic vol] on 08-04-2023 MCV (RBC) [Entitic vol] 75.8 fL 80.0-94.0 [facility] Monocytes Auto (Bld) [#/Vol] on 08-04-2023 Monocytes (Bld) [#/Vol] 1.2 10 3/uL 0.3-0.8 [facility] Monocytes/100 WBC Auto (Bld) on 08-04-2023 Monocytes/100 WBC (Bld) 10.4 % 1.7-12.0 [facility] Neutrophils Auto (Bld) [#/Vo l]on 08-04-2023 Neutrophils (Bld) [#/Vol] 8.2 10 3/uL 1.4-6.5 [facility] Neutrophils/100 WBC Auto (Bl d)on 08-04-2023 Neutrophils/100 WBC (Bld) 70.8 % 43.0-75.0 [facility] No Panel InformationOrdered By: Jenaro Lynch on 08-04-2023 Blood Culture 2 [facility] Blood Culture 1 [facility] Wound Culture [facility] No Panel Informationon 08-03 Aerobic & Anaerobic Susceptibility [facility] Miscellaneous Test Comment See comment [facility] Comment on above: Specimen Source: JONO T - Foot - Foot - 603.950 C-Reactive Protein, Quantitative 11.62 mg/dL <=0.50 [facility] Eosinophils # (Auto) 0.3 10 3/uL 0.0-0.7 [facility] Immature Granulocyte # (Auto) 0.04 10 3/uL 0.00-0.03 [facility] Platelet mean volume Auto (B ld) [Entitic vol]on 08-04-2023 Platelet mean volume (Bld) [Entitic vol] 11.5 fL 9.5-13.5 [facility] Platelets Auto (Bld) [#/Vol] on 08-04-2023 Platelets (Bld) [#/Vol] 206 10 3/uL 150-450 [facility] Prothrombin time (PT)on PT Coag (PPP) [Time] 11.1 s 9.0-11.6 [facility] RBC Auto (Bld) [#/Vol]on RBC (Bld) [#/Vol] 4.30 10 6/uL 4.70-6.10 [facility] Serum or plasma albumin/glob ulin mass ratioon 08-04-2023 Albumin/Globulin [Mass ratio] 0.5 {ratio} [facility] Serum or plasma anion gap de terminationon 08-04-2023 Anion gap [Moles/Vol] 10.3 mmol/L Fi [facility] Serum procalcitonin measurem enton 08-04-2023 Procalcitonin [Mass/Vol] 0.10 ng/mL 0.00-0.50 [facility] Basophils Auto (Bld) [#/Vol] on 08-03-2023 Basophils (Bld) [#/Vol] 0.1 10 3/uL 0.0-0.1 [facility] Basophils/100 WBC Auto (Bld) on 08-03-2023 Basophils/100 WBC (Bld) 0.7 % 0.2-2.0 [facility] Eosinophils/100 WBC Auto (Bl d)on 08-03-2023 Eosinophils/100 WBC (Bld) 1.8 % 0.9-7.0 [facility] Erythrocyte distribution wid th Auto (RBC) [Ratio]on 08-03-2023 Erythrocyte distribution width (RBC) [Ratio] 17.0 % 11.0-15.0 [facility] Estimated glomerular filtrat ion rate (GFR) non- Americanon 08-03-2023 GFR/1.73 sq M.predicted among non-blacks MDRD (S/P/Bld) [Vol rate/Area] 27 mL/min/{1.73_m2} >=60 [facility] Globulin Calc (S) [Mass/Vol] on 08-03-2023 Globulin (S) [Mass/Vol] 5.0 g/dL [facility] Hematocrit Auto (Bld) [Volum e fraction]on 08-03-2023 Hematocrit (Bld) [Volume fraction] 38.9 % 42.0-54.0 [facility] Hemoglobin [Mass/volume] in Bloodon 08-03-2023 Hemoglobin (Bld) [Mass/Vol] 11.8 g/dL 14.0-18.0 [facility] Laboratory - Chemistry and C hemistry - challengeon 08-03-2023 Lactate [Moles/Vol] 1.6 mmol/L 0.4-2.0 [facility] Albumin [Mass/Vol] 3.3 g/dL 3.4-5.0 [facility] ALP [Catalytic activity/Vol] 134 U/L 46-116 [facility] ALT [Catalytic activity/Vol] 13 U/L 16-63 [facility] AST [Catalytic activity/Vol] U/L 15-37 [facility] Bilirubin [Mass/Vol] 0.6 mg/dL 0.2-1.0 [facility] Calcium [Mass/Vol] 9.3 mg/dL 8.5-10.1 [facility] Chloride [Moles/Vol] 92 mmol/L 98-107 [facility] CO2 [Moles/Vol] 31.0 mmol/L 21.0-32.0 [facility] Creatinine [Mass/Vol] 2.45 mg/dL 0.70-1.30 [facility] GFR/1.73 sq M.predicted MDRD (S/P/Bld) [Vol rate/Area] 33 mL/min/{1.73_m2} >=60 [facility] Glucose [Mass/Vol] 310 mg/dL 74-106 [facility] Potassium [Moles/Vol] 3.7 mmol/L 3.5-5.1 [facility] Protein [Mass/Vol] 8.3 g/dL 6.4-8.2 [facility] Sodium [Moles/Vol] 133 mmol/L 136-145 [facility] Urea nitrogen [Mass/Vol] 23.0 mg/dL 7.0-18.0 [facility] Urea nitrogen/Creatinine [Mass ratio] 9.4 mg/mg [facility] Laboratory - Hematology and Cell countson 08-03-2023 ESR (Bld) [Velocity] 118 mm/h <=20 [facility] Immature granulocytes/100 WBC (Bld) 0.4 % 0.0-0.5 [facility] Leukocytes [#/volume] correc jorge for nucleated erythrocytes in Blood by Automated counon 08-03-2023 WBC corrected for nucl RBC Auto (Bld) [#/Vol] 14.6 10 3/uL 4.0-11.0 [facility] Lymphocytes Auto (Bld) [#/Vo l]on 08-03-2023 Lymphocytes (Bld) [#/Vol] 2.1 10 3/uL 1.2-3.8 [facility] Lymphocytes/100 WBC Auto (Bl d)on 08-03-2023 Lymphocytes/100 WBC (Bld) 14.3 % 20.5-60.0 [facility] MCH Auto (RBC) [Entitic mass ]on 08-03-2023 MCH (RBC) [Entitic mass] 22.6 pg 25.9-34.0 [facility] MCHC Auto (RBC) [Mass/Vol]on 08-03-2023 MCHC (RBC) [Mass/Vol] 30.3 g/dL 29.9-35.2 [facility] MCV Auto (RBC) [Entitic vol] on 08-03-2023 MCV (RBC) [Entitic vol] 74.4 fL 80.0-94.0 [facility] Monocytes Auto (Bld) [#/Vol] on 08-03-2023 Monocytes (Bld) [#/Vol] 1.4 10 3/uL 0.3-0.8 [facility] Monocytes/100 WBC Auto (Bld) on 08-03-2023 Monocytes/100 WBC (Bld) 9.4 % 1.7-12.0 [facility] Neutrophils Auto (Bld) [#/Vo l]on 08-03-2023 Neutrophils (Bld) [#/Vol] 10.7 10 3/uL 1.4-6.5 [facility] Neutrophils/100 WBC Auto (Bl d)on 08-03-2023 Neutrophils/100 WBC (Bld) 73.4 % 43.0-75.0 [facility] No Panel Informationon C-Reactive Protein, Quantitative 14.63 mg/dL <=0.50 [facility] Eosinophils # (Auto) 0.3 10 3/uL 0.0-0.7 [facility] Immature Granulocyte # (Auto) 0.06 10 3/uL 0.00-0.03 [facility] Venous Blood Partial Pressure CO2 44.8 mm[Hg] 40.0-52.0 [facility] Venous Blood pH 7.432 7.330-7.43 0 [facility] No Panel InformationOrdered By: Jenaro Lynch on 08-03-2023 Blood Culture 2 [facility] Blood Culture 1 [facility] Platelet mean volume Auto (B ld) [Entitic vol]on 08-03-2023 Platelet mean volume (Bld) [Entitic vol] 11.4 fL 9.5-13.5 [facility] Platelets Auto (Bld) [#/Vol] on 08-03-2023 Platelets (Bld) [#/Vol] 252 10 3/uL 150-450 [facility] RBC Auto (Bld) [#/Vol]on RBC (Bld) [#/Vol] 5.23 10 6/uL 4.70-6.10 [facility] Serum or plasma albumin/glob ulin mass ratioon 08-03-2023 Albumin/Globulin [Mass ratio] 0.7 {ratio} [facility] Serum or plasma anion gap de terminationon 08-03-2023 Anion gap [Moles/Vol] 13.7 mmol/L Fi [facility] US venous duplex LE BIon US venous duplex LE BI [facility] [place] [address] Ultrasound Report Signed Patient: Solomon Pickard SR MR#: [id number] : 1965 Acct:[id number] Age/Sex: 57 / M ADM Date: 07/12/23 Loc: ER Room: Type: [facility] ER Attending Dr: Ordering Provider: Nancy [...] [place] Boss MD07/13/2023 11:56 AM Dictation Location: [place] [address] Tech: Nancy Pantoja Transcribed By: BOB 07/13/23 1156 Dictated By: [place] Boss MD 07/13/23 1156 Signed By: 07/13/23 1156 Normal [facility] US venous duplex UE LTon US venous duplex UE LT [facility] [place] [address] Ultrasound Report Signed Patient: Solomon Pickard SR MR#: [id number] : 1965 Acct:[id number] Age/Sex: 57 / M ADM Date: 07/12/23 Loc: ER Room: Type: [facility] ER Attending Dr: Ordering Provider: Nancy [...] [place] Boss MD07/13/2023 11:56 AM Dictation Location: [place] [address] Tech: Nancy Pantoja Transcribed By: BOB 07/13/23 1156 Dictated By: [place] Boss MD 07/13/23 1155 Signed By: 07/13/23 1156 Normal [facility] Activated partial thrombopla stin time (aPTT) in platelet poor plasma by coagulation aOrdered By: Nancy Wilson on 07-12-2023 aPTT Coag (PPP) [Time] 29.4 s 25.1-36.5 [facility] Comment on above: A hematocrit value g reater than 55% may lead to inaccurate results in coagulation testing. Patients having hematocrit values >55% require a special collection tube for coagulation studies. Please contact the laboratory at [phone] for redraw instructions. Alanine aminotransferase [En zymatic activity/volume] in Serum or PlasmaOrdered By: Nancy Wilson on 07-12-2023 ALT [Catalytic activity/Vol] 9 U/L Normal 7-52 [facility] Comment on above: Performed By: #### G LULS #### Point of Care testing , Albumin [Mass/volume] in Ser um or Plasma by Bromocresol green (BCG) dye binding methoOrdered By: Nancy Wilson on 07-12-2023 Albumin BCG dye [Mass/Vol] 3.9 g/dL 3.5-5.7 [facility] Alkaline phosphatase [Enzyma tic activity/volume] in Serum or PlasmaOrdered By: Nancy Wilson on 07-12-2023 ALP [Catalytic activity/Vol] 106 U/L High 34-104 [facility] Comment on above: Performed By: #### G LULS #### Point of Care testing , Aspartate aminotransferase [ Enzymatic activity/volume] in Serum or PlasmaOrdered By: Nancy Wilson on 07-12-2023 AST [Catalytic activity/Vol] 8 U/L Low 13-39 [facility] Comment on above: Performed By: #### G LULS #### Point of Care testing , Automated basophil %Ordered By: Nancy Wilson on 07-12-2023 Basophils/100 WBC (Bld) 1.1 % Normal . [facility] Comment on above: Performed By: #### G LULS #### Point of Care testing , Automated basophil countOrde red By: Nancy Wilson on 07-12-2023 Basophils (Bld) [#/Vol] 0.1 10*3/uL Normal 0.0-0.2 [facility] Comment on above: Result Comment: PERF ORMED BY: [facility] [address] [place] [address] PATHOLOGIST DIRECTOR OF RECRUITMENT AND ADMISSIONS CLIFFORD LOBATO M.D. Performed By: #### G LULS #### Point of Care testing , Automated blood monocyte cou ntOrdered By: Nancy Wilson on 07-12-2023 Monocytes (Bld) [#/Vol] 1.0 10*3/uL High 0.0-0.8 [facility] Comment on above: Performed By: #### G LULS #### Point of Care testing , Automated eosinophil %Ordere d By: Nancy Wilson on 07-12-2023 Eosinophils/100 WBC (Bld) 3.3 % Normal . [facility] Comment on above: Performed By: #### G LULS #### Point of Care testing , Automated eosinophil countOr dered By: Nancy Wilson on 07-12-2023 Eosinophils (Bld) [#/Vol] 0.3 10*3/uL Normal 0.0-0.45 [facility] Comment on above: Performed By: #### G LULS #### Point of Care testing , Automated monocyte %Ordered By: Nancy Wilson on 07-12-2023 Monocytes/100 WBC (Bld) 10.2 % Normal . [facility] Comment on above: Performed By: #### G LULS #### Point of Care testing , Automated neutrophil %Ordere d By: Nancy Wilson on 07-12-2023 Neutrophils/100 WBC (Bld) 65.4 % Normal . [facility] Comment on above: Performed By: #### G LULS #### Point of Care testing , BNP ser/plasOrdered By: Laith Wilson on 07-12-2023 Natriuretic peptide B (Bld) [Mass/Vol] 34.0 pg/mL Normal 5-100 [facility] Comment on above: Result Comment: PERF ORMED BY: [facility] [address] [place] [address] PATHOLOGIST DIRECTOR OF RECRUITMENT AND ADMISSIONS CLIFFORD LOBATO M.D. Performed By: #### G LULS #### Point of Care testing , Bilirubin.total [Mass/volume ] in Serum or PlasmaOrdered By: Nancy Wilson on 07-12-2023 Bilirubin [Mass/Vol] 0.4 mg/dL Normal 0.3-1.0 [facility] Comment on above: Performed By: #### G LULS #### Point of Care testing , Calcium [Mass/volume] in Ser um or PlasmaOrdered By: Nancy Wilson on 07-12-2023 Calcium [Mass/Vol] 8.5 mg/dL Low 8.6-10.3 [facility] Comment on above: Performed By: #### G LULS #### Point of Care testing , Carbon dioxide, total [Moles /volume] in Serum or PlasmaOrdered By: Nancy Wilson on 07-12-2023 CO2 [Moles/Vol] 24.5 mmol/L Normal 21.0-31.0 [facility] Comment on above: Performed By: #### G LULS #### Point of Care testing , Chloride [Moles/volume] in S ilia or PlasmaOrdered By: Nancy Wilson on 07-12-2023 Chloride [Moles/Vol] 102 mmol/L Normal 98-107 [facility] Comment on above: Performed By: #### G LULS #### Point of Care testing , Complete Blood Count Auto Di ffon 07-12-2023 Mean Corpuscular HGB Conc 32.4 g/dL Low 32.5-35.6 [facility] Comment on above: Performed By: #### G LULS #### Point of Care testing , Monocytes/100 WBC (Bld) 18.12 % Normal 0.00-20.00 [facility] Comment on above: Performed By: #### G LULS #### Point of Care testing , NRBC% 0.1 /100{WBC} Normal 0-0.5 [facility] Comment on above: Performed By: #### G LULS #### Point of Care testing , Comprehensive Metabolic Pane guy 07-12-2023 Albumin [Mass/Vol] 3.9 g/dL Normal 3.5-5.7 [facility] Comment on above: Performed By: #### G LULS #### Point of Care testing , Creatinine Clr Calc Pharmacy 54.64 Normal [facility] Comment on above: Result Comment: PERF ORMED BY: [facility] [address] [place] [address] PATHOLOGIST DIRECTOR OF RECRUITMENT AND ADMISSIONS CLIFFORD LOBATO M.D. Performed By: #### G LULS #### Point of Care testing , GFR/1.73 sq M.predicted MDRD (S/P/Bld) [Vol rate/Area] 42.789 mL/min/{1.73_m2} Normal [facility] Comment on above: Performed By: #### G LULS #### Point of Care testing , Creatine kinase [Enzymatic a ctivity/volume] in Serum or PlasmaOrdered By: Nancy Wilson on 07-12-2023 CK [Catalytic activity/Vol] 55 U/L Normal 30-223 [facility] Comment on above: Performed By: #### G LULS #### Point of Care testing , Creatinine [Mass/volume] in Serum or PlasmaOrdered By: Nancy Wilson on 07-12-2023 Creatinine [Mass/Vol] 1.82 mg/dL High 0.70-1.30 [facility] Comment on above: Performed By: #### G LULS #### Point of Care testing , ECG 12 lead ECGon 07-12-2023 ECG 12 lead ECG [facility] [place] [address] [place] [address] Electrocardiograph Report Signed Patient: Solomon Pickard SR MR#: [id number] : 1965 Acct:[id number] Age/Sex: 57 / M ADM Date: 07/12/23 Loc: ER Room: Type: [facility] ER Attending Dr: Ordering Provider: Nancy [...] Nancy Wilson MD 01/26 0135 Normal [facility] Erythrocyte distribution wid th [Ratio] by Automated countOrdered By: Nancy Wilson on 07-12-2023 Erythrocyte distribution width (RBC) [Ratio] 17.1 % High 12.0-14.8 [facility] Comment on above: Performed By: #### G LULS #### Point of Care testing , Erythrocytes [#/volume] in B lood by Automated countOrdered By: Nancy Wilson on 07-12-2023 RBC (Bld) [#/Vol] 4.63 10*6/uL Normal 3.90-5.60 [facility] Comment on above: Performed By: #### G NELI #### Point of Care testing , Glucose [Mass/volume] in Ser um or PlasmaOrdered By: Nancy Wilson on 07-12-2023 Glucose [Mass/Vol] 302 mg/dL High 70-100 [facility] Comment on above: ADA recommended refe rence rangeRandom Glucose Reference Range is dependent on time and content of last meal. Glucose of more than 200 mg/dL in a nonstressed, ambulatory subject supports the diagnosis of Diabetes Mellitus. Result Comment: Vandiver om Glucose Reference Range is dependent on time and content of last meal. Glucose of more than 200 mg/dL in a nonstressed, ambulatory subject supports the diagnosis of Diabetes Mellitus. ADA recommended reference range Performed By: #### G ADRIANLS #### Point of Care testing , Hematocrit [Volume Fraction] of Blood by Automated countOrdered By: Nancy Wilson on 07-12-2023 Hematocrit (Bld) [Volume fraction] 32.7 % Low 38.8-50.0 [facility] Comment on above: Performed By: #### G NELI #### Point of Care testing , Hemoglobin [Mass/volume] in BloodOrdered By: Nancy Wilson on 07-12-2023 Hemoglobin (Bld) [Mass/Vol] 10.6 g/dL Low 13.0-17.0 [facility] Comment on above: Performed By: #### G ADRIANLS #### Point of Care testing , INR in Platelet poor plasma by Coagulation assayOrdered By: Nancy Wilson on 07-12-2023 INR Coag (PPP) [Relative time] 1.1 {INR} Normal [facility] Comment on above: INR Therapeutic Rang [...] valves: 3 - 4.5 Performed By: #### G LULS #### Point of Care testing , Leukocytes [#/volume] correc jorge for nucleated erythrocytes in Blood by Automated counOrdered By: Nancy Wilson on 07-12-2023 WBC corrected for nucl RBC Auto (Bld) [#/Vol] 9.5 10*3/uL 4.1-10.5 [facility] Leukocytes [#/volume] in Blo od by Automated countOrdered By: Nancy Wilson on 07-12-2023 WBC (Bld) [#/Vol] 9.5 10*3/uL Normal 4.1-10.5 [facility] Comment on above: Performed By: #### G LULS #### Point of Care testing , Lymphocytes [#/volume] in Bl ood by Automated countOrdered By: Nancy Wilson on 07-12-2023 Lymphocytes (Bld) [#/Vol] 1.9 10*3/uL Normal 1.00-4.8 [facility] Comment on above: Performed By: #### G LULS #### Point of Care testing , Lymphocytes/100 leukocytes i n Blood by Automated countOrdered By: Nancy Wilson on 07-12-2023 Lymphocytes/100 WBC (Bld) 20.0 % Normal . [facility] Comment on above: Performed By: #### G LULS #### Point of Care testing , MCH [Entitic mass] by Automa jorge countOrdered By: Nancy Wilson on 07-12-2023 MCH (RBC) [Entitic mass] 22.8 pg Low 27.5-35.2 [facility] Comment on above: Performed By: #### G LULS #### Point of Care testing , MCHC Auto (RBC) [Mass/Vol]Or dered By: Nancy Wilson on 07-12-2023 MCHC (RBC) [Mass/Vol] 32.4 g/dL 32.5-35.6 [facility] MCV [Entitic volume] by Auto mated countOrdered By: Nancy Wilson on 07-12-2023 MCV (RBC) [Entitic vol] 70.6 fL Low 83.5-101 [facility] Comment on above: Performed By: #### G LULS #### Point of Care testing , Monocyte distribution width [Entitic volume] in Blood by AutomatedOrdered By: Nancy Wilson on 07-12-2023 Monocyte distribution width Auto (Bld) [Entitic vol] 18.12 % 0.00-20.00 [facility] Neutrophils [#/volume] in Bl ood by Automated countOrdered By: Nancy Wilson on 07-12-2023 Neutrophils (Bld) [#/Vol] 6.2 10*3/uL Normal 1.8-7.7 [facility] Comment on above: Performed By: #### G LULS #### Point of Care testing , No Panel InformationOrdered By: Nancy Wilson on 07-12-2023 Estimated GFR (CKD-EPI) 42.789 mL/Min [facility] Creatinine Clearance (Chem 54.64 [facility] Nucleated erythrocytes [Pres ence] in Blood by Automated countOrdered By: Nancy Wilson on 07-12-2023 Nucleated RBC Auto Ql (Bld) 0.1 /100{WBC} 0-0.5 [facility] Partial Thromboplastin Timeo n 07-12-2023 aPTT Coag (Bld) [Time] 29.4 s Normal 25.1-36.5 [facility] Comment on above: Result Comment: A he matocrit value greater than 55% may lead to inaccurate results in coagulation testing. Patients having hematocrit values >55% require a special collection tube for coagulation studies. Please contact the laboratory at [phone] for redraw instructions. PERFORMED BY: [facility] [place] [address] PATHOLOGIST DIRECTOR OF RECRUITMENT AND ADMISSIONS CLIFFORD LOBATO M.D. Performed By: #### G LULS #### Point of Care testing , Platelet mean volume [Entiti c volume] in Blood by Automated countOrdered By: Nancy Wilson on 07-12-2023 Platelet mean volume (Bld) [Entitic vol] 9.1 fL Normal 6.6-10.1 [facility] Comment on above: Performed By: #### G LULS #### Point of Care testing , Platelets [#/volume] in Bloo d by Automated countOrdered By: Nancy Wilson on 07-12-2023 Platelets (Bld) [#/Vol] 233 10*3/uL Normal 150-450 [facility] Comment on above: Performed By: #### G LULS #### Point of Care testing , Potassium [Moles/volume] in Serum or PlasmaOrdered By: Nancy Wilsno on 07-12-2023 Potassium [Moles/Vol] 3.9 mmol/L Normal 3.5-5.1 [facility] Comment on above: Performed By: #### G LULS #### Point of Care testing , Protein [Mass/volume] in Ser um or PlasmaOrdered By: Nancy Wilson on 07-12-2023 Protein [Mass/Vol] 7.0 g/dL Normal 6.4-8.9 [facility] Comment on above: Performed By: #### G LULS #### Point of Care testing , Prothrombin time (PT)Ordered By: Nancy Wilson on 07-12-2023 PT Coag (PPP) [Time] 12.1 s Normal 9.0-12.9 [facility] Comment on above: A hematocrit value g reater than 55% may lead to inaccurate results in coagulation testing. Patients having hematocrit values >55% require a special collection tube for coagulation studies. Please contact the laboratory at [phone] for redraw instructions. Result Comment: A he matocrit value greater than 55% may lead to inaccurate results in coagulation testing. Patients having hematocrit values >55% require a special collection tube for coagulation studies. Please contact the laboratory at [phone] for redraw instructions. Performed By: #### G LULS #### Point of Care testing , Serum globulin measurement b y calculation (mass/volume)Ordered By: Nancy Wilson on 07-12-2023 Globulin (S) [Mass/Vol] 3.1 g/dL Normal [facility] Comment on above: Performed By: #### G ADRIANLS #### Point of Care testing , Serum or plasma albumin/glob ulin mass ratioOrdered By: Nancy Wilson on 07-12-2023 Albumin/Globulin [Mass ratio] 1.3 {ratio} Normal [facility] Comment on above: Performed By: #### G LULS #### Point of Care testing , Serum or plasma anion gap de terminationOrdered By: Nancy Wilson on 07-12-2023 Anion gap [Moles/Vol] 13.4 mmol/L Normal 6.0-15.0 [facility] Comment on above: Performed By: #### G LULS #### Point of Care testing , Sodium [Moles/volume] in Ser um or PlasmaOrdered By: Nancy Wilson on 07-12-2023 Sodium [Moles/Vol] 136 mmol/L Normal 136-145 [facility] Comment on above: Performed By: #### G LULS #### Point of Care testing , Troponin I High Sensitivityo n 07-12-2023 Troponin I High Sensitivity 4.6 pg/mL Normal 0.0-20.0 [facility] Comment on above: Result Comment: PERF ORMED BY: [facility] [address] [place] [address] PATHOLOGIST DIRECTOR OF RECRUITMENT AND ADMISSIONS CLIFFORD LOBATO M.D. Performed By: #### G LULS #### Point of Care testing , Troponin I.cardiac [Mass/vol ume] in Serum or Plasma by Detection limit <= 0.01 ng/Ordered By: Nancy Wilson on 07-12-2023 Troponin I.cardiac DL <= 0.01 ng/mL [Mass/Vol] 4.6 pg/mL 0.0-20.0 [facility] Urea nitrogen [Mass/volume] in Serum or PlasmaOrdered By: Nancy Wilson on 07-12-2023 Urea nitrogen [Mass/Vol] 16 mg/dL Normal 7-25 [facility] Comment on above: Performed By: #### G LULS #### Point of Care testing , XR chest 1V portableon 07-12 XR chest 1V portable [facility] [place] [address] [place] [address] XRay Report Signed Patient: Solomon Pickard SR MR#: [id number] : 1965 Acct:[id number] Age/Sex: 57 / M ADM Date: 07/12/23 [...] Sudeep Lind M.D.07/12/2023 5:08 PM Dictation Location: [place] [address] Transcribed By: [facility] 07/12/231707 Dictated By: Sudeep Lind DO 07/12/231706 Signed By: 07/12/231707 Normal [facility] Patient Educationon -29-20 23 Patient Education Urology Benign Prostatic Hyperplasia [...] Follow these instructions at home: ? Take lpyu-qjs-jobzkiv and prescription medicines only as told by [...] the medicine (more content not included)... Normal [facility] Retail - Clinical Noteon Retail - Clinical Note [phone] [id number] [facility] Urology Office/Clinic Noteon 06-02-2023 Urology Office/Clinic Note Chief Complaint S/p to Cysto HPI Staff Sp to Cysto done @ [facility] [place] [place] on 02/14/23- Has not noticed any difference- [...] Contact Information SOLEDAD HERRERA, Yeyo Blum, URL [address] [place] [address]- Additional Instructions: 1 month w/ cath volumes [...] heart failure) (more content not included)... Normal [facility] Comment on above: Result Comment: Elec tronically Signed By: SOLEDAD HERRERA, Yeyo Blum\.br\Date and Time Signed: 06/02/23 12:16 EST\.br\Electronically Co-Signed By: Mattie Foster\.br\Date and Time Co-Signed: 06/02/23 12:04 EST Patient Educationon 05-03-20 Patient Education [facility] Pathology Noteon 05-01-2023 Pathology Note [id number]#1.00TIFF [facility] Lab Reportson 04-14-2023 Lab Reports [id number]#1.00TIFF [facility] Operative Reporton Operative Report [id number]#1.00TIFF [facility] Patient Correspondenceon Patient Correspondence [id number]#1.00TIFF Normal [facility] Lab Reportson 03-31-2023 Lab Reports [id number]#1.00TIFF Normal [facility] RAD - MISCon 03-31-2023 RAD - MISC [id number]#1.00TIFF [facility] Patient Correspondenceon Patient Correspondence [id number]#1.00TIFF [facility] Formson 03-23-2023 Forms [id number]#1.00TIFF Normal [facility] A1C HEMOGLOBINon 03-15-2023 HbA1c (Bld) [Mass fraction] 7.5 % [employer] Other HbA1c (Bld) [Mass fraction]o n 03-15-2023 A1C HEMOGLOBIN [facility] [employer] Other Lab Reportson 03-09-2023 Lab Reports [id number]#1.00TIFF Normal [facility] Office Visit (Cardiology)on 02-15-2023 Follow-up visit [...] in adult Healthy Weight Tips; Status:Complete; Done: [id number] Patient Instructions Please bring all medicines, vitamins, [...] 'best I felt in a while' SOLOMON PICKARD is being seen for a 1 month [...] Sia HERRERA, (more content not included)... Normal [facility] [employer] Tobacco Screening.on 023 Fall risk assessment c) Not medically indicated -[facility] [employer] 250 DO Work Phone: Tobacco use status CP b) No [facility] DO Work Phone: Tobacco Screening. Yes [facility] 250 DO Work Phone: [facility] CARDIAC STRESS/REST INJE CTIONon 01-25-2023 [facility] CARDIAC STRESS/REST INJECTION Patient Name: SOLOMON PICKARD STUDY: MYOCARDIAL PERFUSION STRESS TEST WITH EXERCISE CONVERTED TO LEXISCAN Performing facility: [facility], [address] [place] [address], [place] [address], [address] Provider: Dolores Pickard RN, CHUTE TENDER PCP: Dr. Jenaro Lynch Supervising provider: Pascale Arnold MD, FACC INDICATION: Anginal equivalent CAD; HISTORY: Gender: M; Age: 57 y/o ; Height: 182.88 cm; Weight: 97.7696657 kg. High Cholesterol; CAD; Diabetes; HTN; Palpitations; Chest Pain; Quit smoking unknown years ago. COMPARISON: Previous nuclear testing completed at [facility]. ACCESSION NUMBER(S): [id number]; [id number]; [id number] ORDERING CLINICIAN: DOLORES PICKARD TECHNIQUE: ONE DAY protocol. Stress injection: Date: 01-25-23, 33.9 mCi of Myoview IV at 20 seconds after rapid injection of Lexiscan. Rest injection: Date: 8-23-23, 10.3 mCi of Myoview IV at rest. [...] Electronically signed by: PASCALE ARNOLD MD Normal [facility] No Panel Informationon 01-25 Normal -[facility] [address] DO Work [...] contact the office if new symptoms arise. [employer] after procedure Chief Complaint Routine f/u: 'I have been getting so tired' SOLOMON PICKARD is being seen for a 6 month [...] Screening.on 023 Adult depression screening assessment No [facility] [address] DO Work Phone: Tobacco use status CPHS b) No [facility] [address] DO Work Phone: Alanine aminotransferase [En zymatic activity/volume] in Serum or PlasmaOrdered By: Jenaro Lynch on 09-27-2022 ALT [Catalytic activity/Vol] 15 U/L 7-52 [facility] Albumin [Mass/volume] in Ser um or Plasma by Bromocresol green (BCG) dye binding methoOrdered By: Jenaro Lynch on 09-27-2022 Albumin BCG dye [Mass/Vol] 4.1 g/dL 3.5-5.7 [facility] Alkaline phosphatase [Enzyma tic activity/volume] in Serum or PlasmaOrdered By: Jenaro Lynch on 09-27-2022 ALP [Catalytic activity/Vol] 116 U/L 34-104 [facility] Aspartate aminotransferase [ Enzymatic activity/volume] in Serum or PlasmaOrdered By: Jenaro Lynch on 09-27-2022 AST [Catalytic activity/Vol] 15 U/L 13-39 [facility] Basophils Auto (Bld) [#/Vol] Ordered By: Jenaro Lynch on 09-27-2022 Basophils (Bld) [#/Vol] 0.1 10*3/uL 0.0-0.2 [facility] Basophils/100 WBC Auto (Bld) Ordered By: Jenaro Lynch on 09-27-2022 Basophils/100 WBC (Bld) 1.1 % . [facility] Bilirubin.total [Mass/volume ] in Serum or PlasmaOrdered By: Jenaro Lynch on 09-27-2022 Bilirubin [Mass/Vol] 0.4 mg/dL 0.3-1.0 [facility] Calcium [Mass/volume] in Ser um or PlasmaOrdered By: Jenaro Lynch on 09-27-2022 Calcium [Mass/Vol] 8.8 mg/dL 8.6-10.3 [facility] Carbon dioxide, total [Moles /volume] in Serum or PlasmaOrdered By: Jenaro Lynch on 09-27-2022 CO2 [Moles/Vol] 27.2 mmol/L 21.0-31.0 [facility] Chloride [Moles/volume] in S ilia or PlasmaOrdered By: Jenaro Lynch on 09-27-2022 Chloride [Moles/Vol] 99 mmol/L 98-107 [facility] Cholesterol [Mass/volume] in Serum or PlasmaOrdered By: Jenaro Lynch on 09-27-2022 Cholesterol [Mass/Vol] 104 mg/dL 140-200 [facility] Comment on above: Chol less than 200 m g/dl low riskChol 201-239 mg/dl borderline riskChol 240 mg/dl and greater high risk Cholesterol in LDL Calc [Mas s/Vol]Ordered By: Jenaro Lynch on 09-27-2022 Cholesterol in LDL [Mass/Vol] TNP [facility] Comment on above: Test not performed Cholesterol in LDL [Mass/vol ume] in Serum or PlasmaOrdered By: Jenaro Lynch on 09-27-2022 Cholesterol in LDL [Mass/Vol] 38 mg/dL 0-100 [facility] Comment on above: LDL ATP III CLASSIFI CATIONLDL less than 100 mg/dL OptimalLDL 100-129 mg/dL Near or above optimalLDL 130-159 mg/dL Borderline highLDL 160-189 mg/dL HighLDL greater than 189 mg/dL Very high Cholesterol in VLDL Calc [Ma ss/Vol]Ordered By: Jenaro Lynch on 09-27-2022 Cholesterol in VLDL [Mass/Vol] 99 mg/dL [facility] Creatinine [Mass/volume] in Serum or PlasmaOrdered By: Jenaro Lynch on 09-27-2022 Creatinine [Mass/Vol] 1.84 mg/dL 0.70-1.30 [facility] Eosinophils Auto (Bld) [#/Vo l]Ordered By: Jenaro Lynch on 09-27-2022 Eosinophils (Bld) [#/Vol] 0.7 10*3/uL 0.0-0.45 [facility] Eosinophils/100 WBC Auto (Bl d)Ordered By: Jenaro Lynch on 09-27-2022 Eosinophils/100 WBC (Bld) 5.9 % . [facility] Erythrocyte distribution wid th Auto (RBC) [Ratio]Ordered By: Jenaro Lynch on 09-27-2022 Erythrocyte distribution width (RBC) [Ratio] 16.0 % 12.0-14.8 [facility] Globulin Calc (S) [Mass/Vol] Ordered By: Jenaro Lynch on 09-27-2022 Globulin (S) [Mass/Vol] 2.9 g/dL [facility] Glucose [Mass/volume] in Ser um or PlasmaOrdered By: Jenaro Lynch on 09-27-2022 Glucose [Mass/Vol] 225 mg/dL 70-100 [facility] Comment on above: ADA recommended refe rence rangeRandom Glucose Reference Range is dependent on time and content of last meal. Glucose of more than 200 mg/dL in a nonstressed, ambulatory subject supports the diagnosis of Diabetes Mellitus. Hematocrit Auto (Bld) [Volum e fraction]Ordered By: Jenaro Lynch on 09-27-2022 Hematocrit (Bld) [Volume fraction] 41.0 % 38.8-50.0 [facility] Hemoglobin [Mass/volume] in BloodOrdered By: Jenaro Lynch on 09-27-2022 Hemoglobin (Bld) [Mass/Vol] 13.2 g/dL 13.0-17.0 [facility] Leukocytes [#/volume] correc jorge for nucleated erythrocytes in Blood by Automated counOrdered By: Jenaro Lynch on 09-27-2022 WBC corrected for nucl RBC Auto (Bld) [#/Vol] 12.4 10*3/uL 4.1-10.5 [facility] Lymphocytes Auto (Bld) [#/Vo l]Ordered By: Jenaro Lynch on 09-27-2022 Lymphocytes (Bld) [#/Vol] 2.3 10*3/uL 1.00-4.8 [facility] Lymphocytes/100 WBC Auto (Bl d)Ordered By: Jenaro Lynch on 09-27-2022 Lymphocytes/100 WBC (Bld) 18.2 % . [facility] MCH Auto (RBC) [Entitic mass ]Ordered By: Jenaro Lynch on 09-27-2022 MCH (RBC) [Entitic mass] 23.9 pg 27.5-35.2 [facility] MCHC Auto (RBC) [Mass/Vol]Or dered By: Jenaro Lynch on 09-27-2022 MCHC (RBC) [Mass/Vol] 32.2 g/dL 32.5-35.6 [facility] MCV Auto (RBC) [Entitic vol] Ordered By: Jenaro Lynch on 09-27-2022 MCV (RBC) [Entitic vol] 74.3 fL 83.5-101 [facility] Monocytes Auto (Bld) [#/Vol] Ordered By: Jenaro Lynch on 09-27-2022 Monocytes (Bld) [#/Vol] 1.0 10*3/uL 0.0-0.8 [facility] Monocytes/100 WBC Auto (Bld) Ordered By: Jenaro Lynch on 09-27-2022 Monocytes/100 WBC (Bld) 7.9 % . [facility] Neutrophils Auto (Bld) [#/Vo l]Ordered By: Jenaro Lynch on 09-27-2022 Neutrophils (Bld) [#/Vol] 8.3 10*3/uL 1.8-7.7 [facility] Neutrophils/100 WBC Auto (Bl d)Ordered By: Jenaro Lynch on 09-27-2022 Neutrophils/100 WBC (Bld) 66.9 % . [facility] No Panel InformationOrdered By: Jenaro Lynch on 09-27-2022 Estimated GFR (CKD-EPI) 42.232 mL/Min [facility] Creatinine Clearance (Chem N/A [facility] Nucleated erythrocytes [Pres ence] in Blood by Automated countOrdered By: Jenaro Lynch on 09-27-2022 Nucleated RBC Auto Ql (Bld) 0.1 /100{WBC} 0-0.5 [facility] Platelet mean volume Auto (B ld) [Entitic vol]Ordered By: Jenaro Lynch on 09-27-2022 Platelet mean volume (Bld) [Entitic vol] 9.1 fL 6.6-10.1 [facility] Platelets Auto (Bld) [#/Vol] Ordered By: Jenaro Lynch on 09-27-2022 Platelets (Bld) [#/Vol] 209 10*3/uL 150-450 [facility] Potassium [Moles/volume] in Serum or PlasmaOrdered By: Jenaro Lynch on 09-27-2022 Potassium [Moles/Vol] 4.3 mmol/L 3.5-5.1 [facility] Protein [Mass/volume] in Ser um or PlasmaOrdered By: Jenaro Lynch on 09-27-2022 Protein [Mass/Vol] 7.0 g/dL 6.4-8.9 [facility] RBC Auto (Bld) [#/Vol]Ordere d By: Jenaro Lynch on 09-27-2022 RBC (Bld) [#/Vol] 5.52 10*6/uL 3.90-5.60 [facility] Serum or plasma albumin/glob ulin mass ratioOrdered By: Jenaro Lynch on 09-27-2022 Albumin/Globulin [Mass ratio] 1.4 {ratio} [facility] Serum or plasma anion gap de terminationOrdered By: Jenaro Lynch on 09-27-2022 Anion gap [Moles/Vol] 14.1 mmol/L 6.0-15.0 [facility] Serum or plasma high density lipoprotein (HDL) cholesterol measurementOrdered By: Jenaro Lynch on 09-27-2022 Cholesterol in HDL [Mass/Vol] 21 mg/dL 29-71 [facility] Comment on above: HDL CHOL ATP-III CLA SSIFICATION Cardiovascular RiskHDL > or equal to 60 mg/dL LOWHDL < 40 mg/dL HIGH Serum or plasma total choles terol/high density lipoprotein (HDL) cholesterol mass ratOrdered By: Jenaro Lynch on 09-27-2022 Cholesterol.total/Chol esterol in HDL [Mass ratio] 5.0 {ratio} <5.0 [facility] Sodium [Moles/volume] in Ser um or PlasmaOrdered By: Jenaro Lynch on 09-27-2022 Sodium [Moles/Vol] 136 mmol/L 136-145 [facility] Thyrotropin [Units/volume] i n Serum or PlasmaOrdered By: Jenaro Lynch on 09-27-2022 TSH Qn 3.62 m[IU]/L 0.45-5.33 [facility] Triglyceride [Mass/volume] i n Serum or PlasmaOrdered By: Jenaro Lynch on 09-27-2022 Triglyceride [Mass/Vol] 497 mg/dL 0-149 [facility] Comment on above: If the triglyceride [...] on 09-27-2022 Urate [Mass/Vol] 6.2 mg/dL 2.4-7.6 [facility] Urea nitrogen [Mass/volume] in Serum or PlasmaOrdered By: Jenaro Lynch on 09-27-2022 Urea nitrogen [Mass/Vol] 15 mg/dL 7-25 [facility] WBC Auto (Bld) [#/Vol]Ordere d By: Jenaro Lynch on 09-27-2022 WBC (Bld) [#/Vol] 12.4 10*3/uL 4.1-10.5 [facility] A1C HEMOGLOBINon 02-15-2022 HbA1c (Bld) [Mass fraction] % [employer] Other HbA1c (Bld) [Mass fraction]o n 02-15-2022 [facility] Other Tobacco Screening.on 022 Adult depression screening assessment No [facility] 250 DO Work Phone: Tobacco use status CPHS b) No [facility] 250 DO Work Phone: A1C HEMOGLOBINon 07-27-2021 HbA1c (Bld) [Mass fraction] 11.8 % [employer] Other HbA1c (Bld) [Mass fraction]o n 07-27-2021 A1C HEMOGLOBIN [employer] Other Vital Signs Date Time Vital Sign Value Performing Clinician Facility 03-21-2024 10:30-0400 Diastolic blood pressure 68 mm[Hg] MD Kait Dan Work Phone: [facility] 03-21-2024 10:30-0400 Heart rate 95 /min MD Kait Dan Work Phone: [facility] 03-21-2024 10:30-0400 Systolic blood pressure 103 mm[Hg] MD Kait Dan Work Phone: [facility] 03-19-2024 17:26-0400 Body temperature 98.01 [degF] Guero Furlong DO Work Phone: [employer] [facility] 03-19-2024 17:26-0400 Diastolic blood pressure 78 mm[Hg] Guero Furlong DO Work Phone: [employer] [facility] 03-19-2024 17:26-0400 Heart rate 85 /min Guero Furlong DO Work Phone: [employer] 03-19-2024 17:26-0400 Respiratory rate 19 /min Guero Furlong DO Work Phone: [employer] 03-19-2024 17:26-0400 SaO2% (BldA) [Mass fraction] 96 % Guero Furlong DO Work Phone: [employer] 03-19-2024 17:26-0400 Systolic blood pressure 124 mm[Hg] Guero Furlong DO Work Phone: [employer] 03-15-2024 18:27-0400 Body mass index (BMI) [Ratio] 26.75 kg/m2 Guero Furlong DO Work Phone: [employer] 03-15-2024 18:27-0400 Body temperature 98.01 [degF] [facility] 03-15-2024 18:27-0400 Body weight 89.45 kg Guero Furlong DO [facility] 03-15-2024 18:27-0400 Diastolic blood pressure 94 mm[Hg] Guero Furlong DO [facility] 03-15-2024 18:27-0400 Heart rate 84 /min Guero Furlong DO [facility] 03-15-2024 18:27-0400 Respiratory rate 18 /min Guero Furlong DO [facility] 03-15-2024 18:27-0400 SaO2% (BldA) [Mass fraction] 95 % Guero Jesusitalong DO Work Phone: [facility] [employer] 03-15-2024 18:27-0400 Systolic blood pressure 131 mm[Hg] Guero Furlong DO Work Phone: [facility] 03-13-2024 11:08-0400 Body temperature 97.8 [degF] MD Kait Dan Work Phone: [facility] 03-13-2024 11:08-0400 Diastolic blood pressure 82 mm[Hg] MD Kait Dan Work Phone: [facility] 03-13-2024 11:08-0400 Heart rate 77 /min MD Kait Dan Work Phone: [facility] 03-13-2024 11:08-0400 Respiratory rate 16 /min MD Kait Dan Work Phone: [facility] 03-13-2024 11:08-0400 SaO2% (BldA) [Mass fraction] 99 % MD Kait Dan Work Phone: [facility] 03-13-2024 11:08-0400 Systolic blood pressure 149 mm[Hg] MD Kait Dan Work Phone: [facility] 03-13-2024 06:00-0400 Body weight 90.2 kg MD Kait Dna Work Phone: [facility] 03-09-2024 12:29-0400 Body height 180.34 cm MD Kait Dan Work Phone: [facility] 03-08-2024 21:00-0400 Diastolic blood pressure 72 mm[Hg] MD Kait Dan Work Phone: [facility] 03-08-2024 21:00-0400 Heart rate 93 /min MD Kait Dan Work Phone: [facility] 03-08-2024 21:00-0400 SaO2% (BldA) [Mass fraction] 97 % MD Kait Dan Work Phone: [facility] 03-08-2024 21:00-0400 Systolic blood pressure 134 mm[Hg] MD Kait Dan Work Phone: [facility] 03-08-2024 20:30-0400 Respiratory rate 16 /min MD Kait Dan Work Phone: [facility] 03-08-2024 20:07-0400 Body temperature 98.4 [degF] MD Kait Dan Work Phone: [facility] 03-08-2024 14:10-0400 Body height 180.34 cm MD Kait Dan Work Phone: [facility] 03-08-2024 14:10-0400 Body weight 89.3 kg MD Kait Dan Work Phone: [facility] 03-06-2024 15:51-0400 Body temperature 98.1 [degF] MD Kait Dan Work Phone: [facility] 03-06-2024 15:51-0400 Diastolic blood pressure 73 mm[Hg] MD Kait Dan Work Phone: [facility] 03-06-2024 15:51-0400 Heart rate 78 /min MD Kait Dan Work Phone: [facility] 03-06-2024 15:51-0400 Respiratory rate 16 /min MD Kait Dan Work Phone: [facility] 03-06-2024 15:51-0400 SaO2% (BldA) [Mass fraction] 97 % MD Kait Dan Work Phone: [facility] 03-06-2024 15:51-0400 Systolic blood pressure 140 mm[Hg] MD Kait Dan Work Phone: [facility] 03-06-2024 05:29-0400 Body weight 90.9 kg MD Kait Dan Work Phone: [facility] 03-05-2024 14:26-0400 Body height 182.88 cm MD Kait Dan Work Phone: [facility] 03-03-2024 17:00-0400 Diastolic blood pressure 67 mm[Hg] MD Kait Dan Work Phone: [facility] 03-03-2024 17:00-0400 Heart rate 86 /min MD Kait Dan Work Phone: [facility] 03-03-2024 17:00-0400 Respiratory rate 20 /min MD Kait Dan Work Phone: [facility] 03-03-2024 17:00-0400 SaO2% (BldA) [Mass fraction] 100 % MD Kait Dan Work Phone: [facility] 03-03-2024 17:00-0400 Systolic blood pressure 100 mm[Hg] MD Kait Dan Work Phone: [facility] 03-03-2024 13:45-0400 Body height 182.88 cm MD Kait Dan Work Phone: [facility] 03-03-2024 13:45-0400 Body temperature 97.9 [degF] MD Kait Dan Work Phone: [facility] 03-03-2024 13:45-0400 Body weight 91.5 kg MD Kait aDn Work Phone: [facility] 10-24-2023 10:56-0400 Body height 182.9 cm Raulito Inman MD Work Phone: [facility] 10-24-2023 10:56-0400 Diastolic blood pressure 86 mm[Hg] Raulito Inman MD Work Phone: [facility] 10-24-2023 10:56-0400 Heart rate 104 /min Raulito Inman MD Work Phone: [facility] 10-24-2023 10:56-0400 Systolic blood pressure 134 mm[Hg] Raulito Inman MD Work Phone: [facility] 10-23-2023 09:37-0400 Blood Pressure Location Padmini Halean [facility] 10-23-2023 09:37-0400 Diastolic blood pressure 82 mm[Hg] Padmini Halean [facility] 10-23-2023 09:37-0400 Heart rate 107 /min Padmini Halean [facility] 10-23-2023 09:37-0400 SaO2% (BldA) [Mass fraction] 98 % Padmini Halean [facility] 10-23-2023 09:37-0400 Systolic blood pressure 130 mm[Hg] Albertcarlos Simon [facility] 07-31-2023 12:00-0500 Diastolic blood pressure 63 mm[Hg] DO Jenaro Lynch Work Phone: [facility] 07-31-2023 12:00-0500 Heart rate 75 /min DO Jenaro Lynch Work Phone: [facility] 07-31-2023 12:00-0500 Systolic blood pressure 108 mm[Hg] DO Jenaro Kuns Work Phone: [facility] 07-31-2023 08:33-0500 Respiratory rate 18 /min DO Jenaro Kuns Work Phone: [facility] 07-12-2023 18:03-0500 Diastolic blood pressure 73 mm[Hg] DO Jenaro Kuns Work Phone: [facility] 07-12-2023 18:03-0500 Heart rate 76 /min DO Jenaro Kuns Work Phone: [facility] 07-12-2023 18:03-0500 Respiratory rate 20 /min DO Jenaro Jetts Work Phone: [facility] 07-12-2023 18:03-0500 SaO2% (BldA) [Mass fraction] 98 % DO Jenaro Jetts Work Phone: [facility] 07-12-2023 18:03-0500 Systolic blood pressure 125 mm[Hg] DO Jenaro Jetts Work Phone: [facility] 07-12-2023 16:15-0500 Body height 182.88 cm DO Jenaro Jetts Work Phone: [facility] 07-12-2023 16:15-0500 Body temperature 98.9 [degF] DO Jenaro Jetts Work Phone: [facility] 07-12-2023 16:15-0500 Body weight 99.25 kg DO Jenaro Kuns Work Phone: [facility] 06-02-2023 10:56-0500 Blood Pressure Location Yeyo ROWE [facility] 06-02-2023 10:56-0500 Body temperature 96.98 [degF] Yeyo ROWE [facility] 06-02-2023 10:56-0500 Diastolic blood pressure 84 mm[Hg] Yeyo ROWE [facility] 06-02-2023 10:56-0500 Heart rate 68 /min Yeyo ROWE [facility] 06-02-2023 10:56-0500 Systolic blood pressure 124 mm[Hg] Yeyo ROWE [facility] 04-06-2023 13:15-0400 Body height 180.34 cm Jenaro Lynch Other [employer] Other 04-06-2023 13:15-0400 Body mass index (BMI) [Ratio] 29.43 kg/m2 Jenaro Lynch Other [employer] Other 04-06-2023 13:15-0400 Body weight 95.71 kg Jenaro Lynch Other [employer] Other 04-06-2023 13:15-0400 Diastolic blood pressure 70 mm[Hg] Jenaro Lynch Other [employer] Other 04-06-2023 13:15-0400 Respiratory rate 18 /min Jenaro Lynch Other [employer] Other 04-06-2023 13:15-0400 SaO2% (BldA) [Mass fraction] 97 % Jenaro Lynch Other [employer] Other 04-06-2023 13:15-0400 Systolic blood pressure 100 mm[Hg] Jenaro Lynch Other [employer] Other 03-15-2023 08:30-0400 Body height 180.34 cm Jenaro Lynch Other [employer] Other 03-15-2023 08:30-0400 Body mass index (BMI) [Ratio] 29.01 kg/m2 Jenaro Lynch Other [employer] Other 03-15-2023 08:30-0400 Body weight 94.35 kg Jenaro Lynch Other [employer] Other 03-15-2023 08:30-0400 Diastolic blood pressure 62 mm[Hg] Jenaro Lynch Other [employer] Other 03-15-2023 08:30-0400 Respiratory rate 16 /min Jenaro Lynch Other [employer] Other 03-15-2023 08:30-0400 SaO2% (BldA) [Mass fraction] 97 % Jenaro Lynch Other [employer] Other 03-15-2023 08:30-0400 Systolic blood pressure 88 mm[Hg] Jenaro Lynch Other [employer] Other 02-15-2023 10:04-0400 Body height 182.88 cm Jenaro Lynch Work Phone[facility] [facility] DO Work Phone: 02-15-2023 10:04-0400 Body mass index (BMI) [Ratio] 28.62 kg/m2 Jenaro Lynch Work Phone: [facility] [facility] DO Work Phone: 02-15-2023 10:04-0400 Body surface area Derived from formula 2.18 m2 Jenaro Lynch Work Phone: [facility] 250 DO Work Phone: 02-15-2023 10:04-0400 Body weight 95.71 kg Jenaro Guerra Syed Work Phone: [facility] 250 DO Work Phone: 02-15-2023 10:04-0400 Diastolic blood pressure 70 mm[Hg] Jenaro Lynch Work Phone: [facility] 250 DO Work Phone: 02-15-2023 10:04-0400 Heart rate 76 /min Jenaro Lynch Work Phone: [facility] 250 DO Work Phone: 02-15-2023 10:04-0400 Systolic blood pressure 102 mm[Hg] Jenaro Lynch Work Phone: [facility] 250 DO Work Phone: 01-30-2023 10:23-0400 Blood Pressure Location Yeyo ROWE [facility] 01-30-2023 10:23-0400 Diastolic blood pressure 74 mm[Hg] Yeyo ROWE [facility] 01-30-2023 10:23-0400 Heart rate 68 /min Yeyo ROWE [facility] 01-30-2023 10:23-0400 Respiratory rate 16 /min Yeyo ROWE [facility] [facility] 01-30-2023 10:23-0400 Systolic blood pressure 130 mm[Hg] Yeyo ROWE [facility] 01-11-2023 15:08-0400 Body height 180.34 cm Jenaro Lynch Work Phone: [facility] 600 DO Work Phone: 01-11-2023 15:08-0400 Body mass index (BMI) [Ratio] 30.13 kg/m2 Jenaro Lynch Work Phone: [facility] 600 DO Work Phone: 01-11-2023 15:08-0400 Body surface area Derived from formula 2.18 m2 Jenaro Lynch Work Phone: [facility] 600 DO Work Phone: 01-11-2023 15:08-0400 Body weight 97.98 kg Jenaro Lynch Work Phone: [facility] 600 DO Work Phone: 01-11-2023 15:08-0400 Diastolic blood pressure 86 mm[Hg] Jenaro Lynch Work Phone: [facility] 600 DO Work Phone: 01-11-2023 15:08-0400 Heart rate 74 /min Jenaro Lynch Work Phone: [facility] 600 DO Work Phone: 01-11-2023 15:08-0400 Systolic blood pressure 122 mm[Hg] Jenaro Lynch Work Phone: [facility] DO Work Phone: 12-01-2022 12:45-0400 Body height 180.34 cm Jenaro Lynch Other [facility] Other 12-01-2022 12:45-0400 Body mass index (BMI) [Ratio] 29.73 kg/m2 Jenaro Lynch Other [employer] Other 12-01-2022 12:45-0400 Body weight 96.71 kg Jenaro Syed Other [employer] Other 12-01-2022 12:45-0400 Diastolic blood pressure 70 mm[Hg] Jenaro Lynch Other [employer] Other 12-01-2022 12:45-0400 Respiratory rate 18 /min Jenaro Lynch Other [employer] Other 12-01-2022 12:45-0400 SaO2% (BldA) [Mass fraction] 94 % Jenaro Lynch Other [employer] Other 12-01-2022 12:45-0400 Systolic blood pressure 122 mm[Hg] Jenaro Lynch Other [employer] Other 11-23-2022 11:38-0400 Blood Pressure Location Yeyo ROWE [facility] 11-23-2022 11:38-0400 Diastolic blood pressure 85 mm[Hg] Yeyo ROWE [facility] 11-23-2022 11:38-0400 Heart rate 76 /min Yeyo ROWE [facility] 11-23-2022 11:38-0400 Systolic blood pressure 130 mm[Hg] Yeyo ROWE [facility] 07-04-2022 10:30-0500 Body height 180.34 cm Jenaro Lynch Other [employer] Other 07-04-2022 10:30-0500 Body mass index (BMI) [Ratio] 29.43 kg/m2 Jenaro Fraustos Other [employer] Other 07-04-2022 10:30-0500 Body weight 95.71 kg Jenaro Lynch Other [employer] Other 07-04-2022 10:30-0500 Diastolic blood pressure 86 mm[Hg] Jenaro Fraustos Other [employer] Other 07-04-2022 10:30-0500 Respiratory rate 16 /min Jenaro Fraustos Other [employer] Other 07-04-2022 10:30-0500 Systolic blood pressure 146 mm[Hg] Jenarogorge Fraustos Other [employer] Other 02-15-2022 13:45-0400 Body height 180.34 cm Jenaro Lynch Other [employer] Other 02-15-2022 13:45-0400 Body mass index (BMI) [Ratio] 30.12 kg/m2 Jenaro Fraustos Other [employer] Other 02-15-2022 13:45-0400 Body weight 97.98 kg Jenaro Fraustos Other [employer] Other 02-15-2022 13:45-0400 Diastolic blood pressure 62 mm[Hg] Jenarogorge Fraustos Other [employer] Other 02-15-2022 13:45-0400 Respiratory rate 16 /min Jenarogorge Fraustos Other [employer] Other 02-15-2022 13:45-0400 SaO2% (BldA) [Mass fraction] 96 % Jenaro Jettjoe Other [facility] Other 02-15-2022 13:45-0400 Systolic blood pressure 100 mm[Hg] Jenaro Lynch Other [facility] Other 10-26-2021 10:01-0400 Body height 180.34 cm Jenaro Guerra Syed Work Phone: [facility] 250 DO Work Phone: 10-26-2021 10:01-0400 Body mass index (BMI) [Ratio] 29.99 kg/m2 Jenaro Fraustojoe Work Phone: [facility] 250 DO Work Phone: 10-26-2021 10:01-0400 Body surface area Derived from formula 2.17 m2 Jenaro Fraustojoe Work Phone: [facility] 250 DO Work Phone: 10-26-2021 10:01-0400 Body weight 97.52 kg Jenaro Guerra Syed Work Phone: [facility] 250 DO Work Phone: 10-26-2021 10:01-0400 Diastolic blood pressure 70 mm[Hg] Jenaro Guerra Syed Work Phone: [facility] 250 DO Work Phone: 10-26-2021 10:01-0400 Heart rate 68 /min Jenaro Lynch Work Phone: [facility] 250 DO Work Phone: 10-26-2021 10:01-0400 Systolic blood pressure 104 mm[Hg] Jenaro Lynch Work Phone: [facility] DO Work Phone: 10-19-2021 12:20-0400 Body height 180.34 cm Amina Fagan Other [facility] Other 10-19-2021 12:20-0400 Body mass index (BMI) [Ratio] 30.65 kg/m2 Amina Kinseys Other [facility] Other 10-19-2021 12:20-0400 Body temperature 96.8 [degF] Amina Kinseys Other [facility] Other 10-19-2021 12:20-0400 Body weight 99.7 kg Amina Kinseys Other [facility] Other 10-19-2021 12:20-0400 Diastolic blood pressure 71 mm[Hg] Amina Kinseys Other [facility] Other 10-19-2021 12:20-0400 Respiratory rate 18 /min Amina Kinseys Other [facility] Other 10-19-2021 12:20-0400 SaO2% (BldA) [Mass fraction] 98 % Amina Kinseys Other [facility] Other 10-19-2021 12:20-0400 Systolic blood pressure 111 mm[Hg] Azjuan Kinseys Other [facility] Other 07-27-2021 14:00-0500 Body height 180.34 cm Jenaro Lynch Other [facility] Other 07-27-2021 14:00-0500 Body mass index (BMI) [Ratio] 30.4 kg/m2 Jenaro Lynch Other [employer] Other 07-27-2021 14:00-0500 Body weight 98.88 kg Jenaro Lynch Other [employer] Other 07-27-2021 14:00-0500 Diastolic blood pressure 76 mm[Hg] Jenaro Lynch Other [employer] Other 07-27-2021 14:00-0500 Respiratory rate 18 /min Jenaro Lynch Other [employer] Other 07-27-2021 14:00-0500 SaO2% (BldA) [Mass fraction] 98 % Jenaro Lynch Other [employer] Other 07-27-2021 14:00-0500 Systolic blood pressure 112 mm[Hg] Jenaro Lynch Other [employer] Other Encounters Encounter Date Encounter Type Care Provider Facility Start: 05-27-2024 ambulatory Yeyo Ley ty:[facility] Start: 04-04-2024 End: 04-04-2024 ambulatory MD Kait Dan Work Phone: [facility] Work Phone: Start: 04-04-2024 End: 04-04-2024 Patient encounter procedure MD Kait Dan Work Phone: [facility] [place] Work Phone: Start: 03-29-2024 Non-patient / Non-visit MD Jeremi Dan Work Phone: [facility] [place] Work Phone: Start: 03-22-2024 End: 03-22-2024 Telephone encounter Feli Lylesmadi Call Mal blum Comment on above: Blood Sugar Problem (High blood sugars) Start: 03-21-2024 End: 03-21-2024 ambulatory MD Kait Dan Work Phone: [facility] Work Phone: Comment on above: History of right bel ow knee amputation (CMS-HCC) (Primary Dx) Start: 03-21-2024 End: 03-21-2024 Patient encounter procedure MD Kait Dan Work Phone: [facility] Work Phone: Start: 03-21-2024 End: 03-21-2024 MD Kait Dan Work Phone: [facility] Work Phone: Start: 03-19-2024 End: 03-19-2024 ambulatory Guero Mckayleeasim DO Work Phone: [facility] - Family Medicine Comment on above: Diabetic polyneuropa thy associated with type 2 diabetes mellitus ([facility]-HCC) (Primary Dx); Encounter for orthopedic aftercare following surgical amputation; Other abnormalities of gait and mobility; Restless leg syndrome Start: 03-15-2024 End: 03-15-2024 ambulatory [facility] Comment on above: Diabetic polyneuropa thy associated with type 2 diabetes mellitus (CMS-HCC) (Primary Dx); Disorientation; Other abnormalities of gait and mobility; Status post partial amputation of right foot (CMS-HCC); Atherosclerosis of [place] coronary artery of [place] heart without angina pectoris; Atrial fibrillation ([facility]-HCC); Primary hypertension Start: 03-15-2024 End: 03-15-2024 Telephone encounter Nancy Kim CMA [facility] Start: 03-12-2024 ambulatory [facility] Start: 03-10-2024 Non-patient / Non-visit MD Jeremi Dan Work Phone: [facility] Work Phone: Start: 03-10-2024 MD Kait richmond Work Phone: [facility] Work Phone: Start: 03-09-2024 Non-patient / Non-visit MD Jeremi Dan Work Phone: [facility] Work Phone: Start: 03-09-2024 MD Kait richmond Work Phone: [facility] Work Phone: Start: 03-08-2024 End: 03-13-2024 Evaluation and management of inpatient MD Kait Dan Work Phone: [facility] Work Phone: Start: 03-08-2024 End: 03-13-2024 MD Kait Dan Work Phone: [facility] [place] [facility] Work Phone: Start: 03-08-2024 End: 03-10-2024 Emergency department patient visit [facility] Start: 03-05-2024 Non-patient / Non-visit MD Jeremi Dan Work Phone: [facility] Work Phone: Start: 03-05-2024 MD Kait richmond Work Phone: [facility] Work Phone: Start: 03-04-2024 End: 03-06-2024 Evaluation and management of inpatient MD Kait Dan Work Phone: [facility] [place] [facility] Work Phone: Start: 03-04-2024 End: 03-06-2024 MD Kait Dan Work Phone: [facility] [place] [facility] Work Phone: Start: 03-03-2024 Evaluation and management of inpatient MD Kait Dan Work Phone: [facility] [place] [facility] Work Phone: Start: 03-03-2024 observation encounter MD Vikas Dan Work Phone: [facility] Work Phone: Start: 02-12-2024 End: 02-21-2024 Evaluation and management of inpatient MD Padmini Montes Facility:[facility] [place] [place] Start: 02-12-2024 ambulatory Yeyo ROWE Facili ty: [place] Start: 02-12-2024 ambulatory Padmini Montes Facili ty:[facility] [place] [place] Start: 02-08-2024 Non-patient / Non-visit MD Jeremi Dan Work Phone: [facility] Work Phone: Start: 02-08-2024 MD Kait richmond Work Phone: [facility] Work Phone: Start: 02-01-2024 Non-patient / Non-visit MD Jeremi Dan Work Phone: [facility] Work Phone: Start: 02-01-2024 MD Kait richmond Work Phone: [facility] Work Phone: Start: 01-24-2024 Non-patient / Non-visit MD Jeremi Dan Work Phone: [facility] [place] Work Phone: Start: 01-24-2024 MD Kait richmond Work Phone: [facility] [place] Work Phone: Start: 01-17-2024 End: 01-17-2024 ambulatory [facility] Start: 01-08-2024 End: 01-08-2024 ambulatory MD Padmini Montes Facility:[facility] [place] [place] Start: 01-03-2024 Non-patient / Non-visit MD Jeremi Dan Work Phone: [facility] [place] Work Phone: Start: 01-03-2024 MD Kait richmond Work Phone: [facility] [place] Work Phone: Start: 01-01-2024 End: 01-01-2024 ambulatory [facility] Amb[facility] Start: 12-31-2023 Non-patient / Non-visit MD Jeremi Dan Work Phone: [facility] Work Phone: Start: 12-31-2023 MD Kait richmond Work Phone: [facility] Work Phone: Start: 12-30-2023 Non-patient / Non-visit MD Jeremi Dan Work Phone: [facility] Work Phone: Start: 12-30-2023 MD Kait richmond Work Phone: [facility] Work Phone: Start: 12-28-2023 Non-patient / Non-visit MD Jeremi Dan Work Phone: [facility] [place] Work Phone: Start: 12-28-2023 MD Kait richmond Work Phone: [facility] [place] Work Phone: Start: 12-25-2023 Non-patient / Non-visit MD Jeremi Dan Work Phone: [facility] [place] Work Phone: Start: 12-25-2023 MD Kait richmond Work Phone: [facility] [place] Work Phone: Start: 12-23-2023 Non-patient / Non-visit MD Jeremi Dan Work Phone: [facility] Work Phone: Start: 12-23-2023 MD Kait richmond Work Phone: [facility] Work Phone: Start: 12-22-2023 Non-patient / Non-visit MD Jeremi Dan Work Phone: [facility] Work Phone: Start: 12-22-2023 MD Kait richmond Work Phone: [facility] Work Phone: Start: 12-21-2023 Non-patient / Non-visit MD Jeremi Dan Work Phone: [facility] Work Phone: Start: 12-21-2023 MD Kait richmond Work Phone: [facility] Work Phone: Start: 12-21-2023 End: 12-21-2023 ambulatory [facility] Start: 12-15-2023 End: 12-15-2023 ambulatory DO Jenaro Lynch Work Phone: [facility] Work Phone: Start: 12-15-2023 End: 12-15-2023 Departed Referred DO Jenaro Lynch Work Phone: [facility] Start: 12-15-2023 End: 12-15-2023 MD Kait Dan Work Phone: [facility] [place] [facility] Start: 12-10-2023 Non-patient / Non-visit MD Jeremi Dan Work Phone: [facility] Work Phone: Start: 12-10-2023 MD Kait richmond Work Phone: [facility] Work Phone: Start: 12-10-2023 Non-patient / Non-visit DO Phillip an Jetts Work Phone: [facility] Work Phone: Start: 12-10-2023 MD Kait richmond Work Phone: [facility] Work Phone: Start: 12-09-2023 Non-patient / Non-visit DO Phillip an Syed Work Phone: [facility] Work Phone: Start: 12-09-2023 MD Kait richmond Work Phone: [facility] Work Phone: Start: 11-30-2023 End: 11-30-2023 ambulatory [facility] Start: 11-26-2023 Non-patient / Non-visit DO Phillip an Kuns Work Phone: [facility] Work Phone: Start: 11-23-2023 End: 11-23-2023 ambulatory [facility] Start: 11-15-2023 End: 11-15-2023 ambulatory MAAME RUCKER [facility] Start: 11-15-2023 Non-patient / Non-visit DO Phillip an Kuns Work Phone[facility] Work Phone: Start: 11-14-2023 End: 11-14-2023 Evaluation and management of inpatient [facility] Start: 11-07-2023 End: 11-14-2023 Evaluation and management of inpatient ROSIE [facility] Start: 11-07-2023 End: 11-14-2023 Evaluation and management of inpatient [facility] Start: 10-24-2023 End: 10-24-2023 ambulatory [facility] Start: 10-24-2023 End: 10-24-2023 Encounter for preprocedural cardiovascular examination [facility] Start: 10-24-2023 End: 10-24-2023 Office outpatient visit 25 minutes Raulito Inman MD Work Phone: [facility] Comment on above: History of PTCA; Hyperlipidemia, unspecified hyperlipidemia type; Encounter for pre-operative cardiovascular clearance; Former smoker Start: 10-24-2023 End: 10-24-2023 Patient encounter status Raulito Inman MD Work Phone: [facility] Work Phone: Start: 10-23-2023 End: 10-23-2023 ambulatory MD Padmini Montes Facility:[facility] [place] [place] Start: 10-23-2023 End: 10-23-2023 Patient encounter procedure Padmini Montes [facility] Start: 10-19-2023 End: 10-19-2023 ambulatory MD Padmini Montes Facility:[facility] [place] [place] Start: 10-19-2023 End: 10-19-2023 Patient encounter procedure Padmini Montes [facility] Start: 10-18-2023 End: 10-18-2023 ambulatory [facility] Start: 10-06-2023 Non-patient / Non-visit DO Phillip an Kuns Work Phone: [facility] Work Phone: Start: 10-05-2023 End: 10-05-2023 ambulatory DO Jenaro Kuns Work Phone: [facility] Work Phone: Start: 10-05-2023 End: 10-05-2023 Departed Referred DO Jenaro Kuns Work Phone: [facility] Start: 10-05-2023 Non-patient / Non-visit DO Phillip an Kuns Work Phone: [facility] Work Phone: Start: 10-04-2023 Non-patient / Non-visit DO Phillip an Kuns Work Phone: [facility] Work Phone: Start: 10-03-2023 Non-patient / Non-visit DO Phillip an Kuns Work Phone: [facility] Work Phone: Start: 10-02-2023 End: 10-02-2023 ambulatory DO Jenaro Kuns Work Phone: [facility] Work Phone: Start: 10-02-2023 End: 10-02-2023 Departed Referred DO Jenaro Kuns Work Phone: [facility] Start: 10-02-2023 Non-patient / Non-visit DO Phillip an Kuns Work Phone: [facility] Work Phone: Start: 10-01-2023 Non-patient / Non-visit DO Phillip an Kuns Work Phone: [facility] Work Phone: Start: 09-30-2023 Non-patient / Non-visit DO Phillip an Kuns Work Phone: [facility] Work Phone: Start: 09-27-2023 Non-patient / Non-visit DO Phillip an Kuns Work Phone: [facility] Work Phone: Start: 09-21-2023 End: 09-21-2023 ambulatory DO Jenarogorge Fraustos Work Phone: [facility] Work Phone: Start: 09-21-2023 End: 09-21-2023 Departed Referred DO Jenaro Fraustos Work Phone: [facility] Start: 09-21-2023 Non-patient / Non-visit DO Phillip an Kuns Work Phone: [facility] Work Phone: Start: 09-18-2023 Non-patient / Non-visit DO Phillip an Kuns Work Phone: [facility] Work Phone: Start: 09-08-2023 End: 09-08-2023 ambulatory Yeyo ROWE Facility:[facility] Start: 09-08-2023 End: 09-08-2023 Patient encounter procedure Yeyo ROWE [facility] Start: 08-10-2023 Non-patient / Non-visit DO Phillip an Kuns Work Phone: [facility] Work Phone: Start: 08-08-2023 Non-patient / Non-visit DO Phillip an Kuns Work Phone: [facility] Work Phone: Start: 08-07-2023 Non-patient / Non-visit DO Phillip an Kuns Work Phone: [facility] Work Phone: Start: 08-06-2023 Non-patient / Non-visit DO Phillip an Kuns Work Phone: [facility] Work Phone: Start: 08-05-2023 Non-patient / Non-visit DO Phillip an Kuns Work Phone: [facility] Work Phone: Start: 08-04-2023 Non-patient / Non-visit DO Phillip an Kuns Work Phone: [facility] Work Phone: Start: 08-03-2023 Non-patient / Non-visit DO Phillip an Kuns Work Phone: [facility] Work Phone: Start: 07-31-2023 Registered Recurring DO Jenarogorge Fraustojoe Work Phone: [facility]Infusion Therapy - O/P Work Phone: Start: 07-31-2023 ambulatory Jenaro Lynch Facility:[facility] Start: 07-26-2023 Non-patient / Non-visit DO Phillip an Kuns Work Phone: [facility] Work Phone: Start: 07-12-2023 End: 07-12-2023 Emergency department patient visit DO Jenaro Lynch Work Phone: [facility]-Emergency Room Work Phone: Start: 07-07-2023 End: 07-07-2023 ambulatory Jenaro Lynch Other [employer] Other Start: 07-07-2023 Telephone encounter [facility] Start: 07-03-2023 End: 07-03-2023 ambulatory Yeyo ROWE Facility: [place] Start: 06-26-2023 End: 06-26-2023 ambulatory Jenaro Fraustojoe Other [employer] Other Start: 06-26-2023 Telephone encounter [facility] Start: 06-02-2023 End: 06-02-2023 ambulatory Yeyo ROWE Facility:[facility] Start: 06-02-2023 End: 06-02-2023 Patient encounter procedure Yeyo ROWE [facility] Start: 05-16-2023 End: 05-16-2023 ambulatory Jenaro Fraustojoe Other [employer] Other Start: 05-16-2023 Telephone encounter Jenaro Lynch [facility] Start: 05-03-2023 End: 05-03-2023 ambulatory Yeyo ROWE Facility: [facility] Start: 05-03-2023 End: 05-03-2023 Patient encounter procedure Yeyo ROWE [facility] Start: 04-28-2023 End: 04-28-2023 ambulatory Jenaro Fraustojoe Other [employer] Other Start: 04-28-2023 Telephone encounter Jenaro Lynch [facility] Start: 04-18-2023 End: 04-18-2023 ambulatory Yeyo ROWE Facility: [facility] Start: 04-18-2023 End: 04-18-2023 Patient encounter procedure Yeyo ROWE [facility] Start: 04-17-2023 ambulatory Yeyo Ruizi ty:[facility] Start: 04-13-2023 End: 04-13-2023 ambulatory Yeyo ROWE Facility:[id number] Start: 04-11-2023 End: 04-11-2023 ambulatory Jenaro Lynch Other [employer] Other Start: 04-11-2023 Telephone encounter Jenaro Lynch [facility] [place] Start: 04-06-2023 End: 04-06-2023 ambulatory Jenaro Lynch Other [employer] Other Start: 04-06-2023 Encounter for other preprocedural examination Jenaro Lynch [facility] [place] Start: 04-06-2023 Office outpatient vi sit 25 minutes Jenaro Lynch [facility] [place] Start: 03-28-2023 End: 03-28-2023 ambulatory Jenaro Lynch Other [employer] Other Start: 03-28-2023 Telephone encounter Jenaro Lynch [facility] [place] Start: 03-20-2023 ambulatory Yeyo Ruizi ty:[facility] Start: 03-15-2023 End: 03-15-2023 ambulatory Yeyo ROWE [facility] Other Start: 03-15-2023 Office outpatient vi sit 25 minutes Jenaro Lynch [facility] [place] Start: 03-10-2023 End: 03-10-2023 ambulatory Jenaro Lynch Other [employer] Other Start: 03-10-2023 Telephone encounter Jenaro Lynch [facility] [place] Start: 02-15-2023 Office outpatient vi sit 15 minutes Jenaro Lynch Work Phone: [facility] 250 DO Work Phone: Start: 02-15-2023 ambulatory Dolores Pickard Facility:[id number] Start: 02-14-2023 End: 02-14-2023 Patient encounter procedure Yeyo ROWE [facility] Start: 02-08-2023 End: 02-08-2023 Patient encounter procedure Yeyo ROWE [facility] Start: 01-30-2023 End: 01-30-2023 Patient encounter procedure Yeyo ROWE [facility] Start: 01-25-[address] Jenaro Lynch Facility:[id number] Start: 01-17-2023 End: 01-17-2023 ambulatory Jenaro Lynch Other [employer] Other Start: 01-17-2023 Telephone encounter Jenaro Lynch [facility] Start: 01-11-2023 Office outpatient vi sit 25 minutes Jenaro Lynch Work Phone: [facility] 600 DO Work Phone: Start: 01-11-2023 ambulatory Dolores Pickard Facility:[id number] Start: 12-28-2022 End: 12-28-2022 Patient encounter procedure Yeyo ROWE [facility] Start: 12-01-2022 End: 12-01-2022 ambulatory Jenaro Lynch Other [employer] Other Start: 12-01-2022 Office outpatient vi sit 25 minutes Jenaro [facility] Start: 11-23-2022 End: 11-23-2022 Patient encounter procedure Yeyo ROWE [facility] Start: 10-07-2022 End: 10-07-2022 ambulatory Jenaro Lynch Other [employer] Other Start: 10-07-2022 Telephone encounter Jenaro Lynch [facility] Start: 09-27-2022 End: 09-27-2022 ambulatory DO Jenaro Jettjoe Work Phone: [facility] Work Phone: Start: 09-27-2022 End: 09-27-2022 Patient encounter procedure DO Jenaro Jettjoe Work Phone: [facility] [place] Work Phone: Start: 09-21-2022 End: 09-21-2022 ambulatory Jenaro Lynch Other [employer] Other Start: 09-21-2022 Telephone encounter Jenaro Lynch [facility] Start: 09-14-2022 End: 09-14-2022 ambulatory Jenaro Lynch Other [employer] Other Start: 09-14-2022 Telephone encounter Jenaro Lynch [facility] Start: 09-02-2022 End: 09-02-2022 Patient encounter procedure DO Jenaro Jettjoe Work Phone: [facility] [place] Work Phone: Start: 08-25-2022 End: 08-25-2022 ambulatory Doris Barnes Other [employer] Other Start: 08-25-2022 Telephone encounter Doris Barnes [facility] Start: 08-22-2022 End: 08-22-2022 ambulatory Jenaro Lynch Other [employer] Other Start: 08-22-2022 Telephone encounter Jenarogorge Lynch [facility] Start: 08-05-2022 End: 08-05-2022 ambulatory Jnearogorge Lynch Other [employer] Other Start: 08-05-2022 Telephone encounter Jenarogorge Lynch [facility] Start: 08-04-2022 End: 08-04-2022 ambulatory Jenaro Lynch Other [employer] Other Start: 08-04-2022 Telephone encounter Jenarogorge Lynch [facility] Start: 07-28-2022 End: 07-28-2022 ambulatory Jenarogorge Lynch Other [employer] Other Start: 07-28-2022 Telephone encounter Jenarogorge Lynch [facility] Start: 07-25-2022 End: 07-25-2022 ambulatory Jenarogorge Lynch Other [employer] Other Start: 07-25-2022 Nursing evaluation o f patient and report Jenaro Lynch [facility] Start: 07-19-2022 End: 07-19-2022 ambulatory Jenaro Lynch Other [employer] Other Start: 07-19-2022 Telephone encounter Jenaro Lynch [facility] Start: 07-15-2022 End: 07-15-2022 ambulatory Jenaro Lynch Other [employer] Other Start: 07-15-2022 Telephone encounter Jenaro Lynch [facility] Start: 07-13-2022 End: 07-13-2022 ambulatory Jenarogorge Fraustos Other [employer] Other Start: 07-13-2022 Nursing evaluation o f patient and report [facility] Start: 07-12-[address] [facility] Start: 07-05-2022 End: 07-05-2022 ambulatory Jenaro Lynch Other [employer] Other Start: 07-05-2022 Telephone encounter Jenaro Lynch [facility] Start: 07-05-2022 Rx Renewal Jenaro Lynch Work Phone: [facility] [facility] DO Work Phone: Start: 07-04-2022 End: 07-04-2022 ambulatory Jenaro Lynch Other [employer] Other Start: 07-04-2022 Office outpatient vi sit 25 minutes Jenaro Lynch [facility] Start: 06-30-2022 End: 06-30-2022 ambulatory Jenaro Lynch Other [employer] Other Start: 06-30-2022 Telephone encounter Jenaro Lynch [facility] Start: 05-25-2022 End: 05-25-2022 ambulatory Jenaro Lynch Other [employer] Other Start: 05-25-2022 Telephone encounter Jenaro Lynch [facility] Start: 04-25-2022 End: 04-25-2022 ambulatory Jenaro Lynch Other [employer] Other Start: 04-25-2022 Telephone encounter Jenaro Lynch [facility] Start: 04-19-2022 End: 04-19-2022 ambulatory Jenaro Lynch Other [employer] Other Start: 04-19-2022 Telephone encounter Jenaro Lynch [facility] Start: 03-22-2022 End: 03-22-2022 ambulatory Jenaro Lynch Other [employer] Other Start: 03-22-2022 Telephone encounter Jenaro Lynch [facility] Start: 03-01-2022 End: 03-01-2022 ambulatory Jenaro Lynch Other [employer] Other Start: 03-01-2022 Telephone encounter Jenaro Lynch [facility] Start: 02-18-2022 End: 02-18-2022 ambulatory Jenaro Lynch Other [employer] Other Start: 02-18-2022 Telephone encounter Jenaro Lynch [facility] Start: 02-15-2022 End: 02-15-2022 ambulatory Verona Whaley Other [employer] Other Start: 02-15-2022 Office outpatient vi sit 25 minutes Jenaro Lynch [facility] Start: 02-15-2022 Telephone encounter Verona Whaley [facility] Start: 01-21-2022 End: 01-21-2022 ambulatory Jenaro Lynch Other [employer] Other Start: 01-21-2022 Telephone encounter Jenaro Lynch [facility] Start: 01-19-2022 End: 01-19-2022 ambulatory Jenaro Lynch Other [employer] Other Start: 01-19-2022 Telephone encounter Jenaro Lynch [facility] Start: 01-13-2022 End: 01-13-2022 ambulatory Jenaro Lynch Other [employer] Other Start: 01-13-2022 Telephone encounter Jenaro Lynch [facility] Start: 12-23-2021 End: 12-23-2021 ambulatory Jenaro Lynch Other [employer] Other Start: 12-23-2021 Telephone encounter [facility] Start: 11-24-2021 End: 11-24-2021 ambulatory Jenaro Lynch Other [employer] Other Start: 11-24-2021 Telephone encounter [facility] Start: 11-03-2021 Rx Renewal Jenaro Lynch Work Phone: [facility] [employer] [address] DO Work Phone: Start: 10-26-2021 Office outpatient vi sit 25 minutes Jenarogorge Lynch Work Phone: [facility] [place] 250 DO Work Phone: Start: 10-25-2021 End: 10-25-2021 ambulatory Jenaro Lynch Other [employer] Other Start: 10-25-2021 Telephone encounter [facility] Start: 10-19-2021 End: 10-19-2021 ambulatory Azjuan Kinseys Other [employer] Other Start: 10-19-2021 Office outpatient vi sit 25 minutes Azjuan Bakhous [facility] Start: 10-18-2021 End: 10-18-2021 ambulatory Aziz Bakhous Other [employer] Other Start: 10-18-2021 Telephone encounter Azjuan Tonyhous [facility] Start: 10-12-2021 End: 10-13-2021 ambulatory DUARET HENRY . Facility: Start: 10-08-2021 End: 10-08-2021 ambulatory Jenarogorge Fraustojoe Other [employer] Other Start: 10-08-2021 Telephone encounter Jenaro Lynch [facility] Start: 09-22-2021 End: 09-22-2021 ambulatory Jenaro Lynch Other [employer] Other Start: 09-22-2021 Telephone encounter Jenaro Lynch [facility] Start: 09-21-2021 End: 09-21-2021 ambulatory Jenaro Lynch Other [employer] Other Start: 09-21-2021 Telephone encounter Jenaro Lynch [facility] Start: 08-09-2021 End: 08-09-2021 ambulatory Jenaro Lynch Other [employer] Other Start: 08-09-2021 Telephone encounter Jenaro Lynch [facility] Start: 08-02-2021 End: 08-02-2021 ambulatory Jenaro Lynch Other [employer] Other Start: 08-02-2021 Telephone encounter Jenaro Lynch [facility] Start: 07-27-2021 End: 07-27-2021 ambulatory Jenaro Lynch Other [employer] Other Start: 07-27-2021 Office outpatient vi sit 25 minutes Jenaro Lynch [facility] Start: 06-23-2021 End: 06-23-2021 ambulatory Jenaro Lynch Other [employer] Other Start: 06-23-2021 Telephone encounter Jenaro Lynch [facility] Start: 06-22-2021 Rx Renewal Jenaro Lynch Work Phone: [facility] [facility] DO Work Phone: Start: 05-03-2021 End: 05-03-2021 ambulatory Jenaro Lynch Other [employer] Other Start: 05-03-2021 Telephone encounter Jenaro Syed [facility] [place] Procedures Date Procedure Procedure Detail Performing Clinician Start: 03-11-2024 MRI of abdomen with contrast MD Kait Dan Work Phone: Start: 03-11-2024 Ultrasonography of liver MD Kait Dan Work Phone: Start: 03-09-2024 Plain X-ray of left elbow MD Kait Dan Work Phone: Start: 03-09-2024 Plain X-ray of left shoulder MD Kait Dan Work Phone: Start: 03-09-2024 Ultrasonography of bilateral kidneys MD Kait Dan Work Phone: Start: 03-08-2024 MRI of head MD Kait Dan Work Phone: Start: 03-08-2024 Plain chest X-ray MD Martha Dan Work Phone: Start: 03-08-2024 CT angiography of head MD Kait Dan Work Phone: Start: 03-08-2024 CT angiography of ne ck vessels MD Kait Dan Work Phone: Start: 03-08-2024 CT of head without contrast MD Kait Dan Work Phone: Start: 03-08-2024 Blood culture for bacteria, including anaerobic screen MD Kait Dan Work Phone: Start: 03-08-2024 Respiratory Panel (PCR) MD Kait Dan Work Phone: Start: 03-08-2024 MD Kait Dan Work Phone: Start: 03-04-2024 Magnetic resonance angiography of head without contrast MD Kait Dan Work Phone: Start: 03-04-2024 Antibody screen Paula perez Comment on above: Order Comment: Numbe r of units to transfuse now? 1 Result Comment: PERF ORMED BY: [facility] [address] [place] [address] PATHOLOGIST DIRECTOR OF RECRUITMENT AND ADMISSIONS CLIFFORD LOBATO M.D. Start: 03-04-2024 X-ray of right knee MD Kait Dan Work Phone: Start: 03-04-2024 Doppler ultrasonogra phy of bilateral carotid arteries MD Kait Dan Work Phone: Start: 03-03-2024 CT of head without contrast MD Kait Dan Work Phone: Start: 03-03-2024 Computed tomography of abdomen and pelvis with contrast MD Kait Dan Work Phone: Start: 03-03-2024 SARS-CoV-2, Influenz a & RSV (PCR) MD Kait Dan Work Phone: Start: 03-03-2024 Plain chest X-ray MD Martha Dan Work Phone: Start: 12-21-2023 Blood Culture 1 MD Delfina Dan Work Phone: Start: 12-21-2023 Blood Culture 2 MD Delfina Dan Work Phone: Start: 12-21-2023 MD Kait Dan Work Phone: Start: 11-26-2023 Blood Culture 1 DO Brya n Syed Work Phone: Start: 11-26-2023 Blood Culture 2 DO Brya n Syed Work Phone: Start: 11-15-2023 Blood Culture 1 DO Brya n Kuns Work Phone: Start: 11-15-2023 Blood Culture 2 DO Brya n Syed Work Phone: Start: 11-07-2023 Adult depression scr eening assessment Nancy Kim CMA Start: 10-24-2023 Ecg routine ecg w/le ast 12 lds w/i&r Raulito Inman MD Work Phone: Start: 10-06-2023 End: 02-28-2024 History of amputation of foot Status post partial amputation of right foot Nancy Kim CMA Start: 10-02-2023 Acid Fast Smear DO Phillipa charlie Lynch Work Phone: Start: 10-02-2023 AFB Specimen [...] colonoscopy Jenaro Lynch Work Phone: Appendectomy Jenaro Fraustojoe Work Phone: Appendectomy Yeyo ROWE Bilateral Carpal Timothy uli Surgery Yeyo ROWE Bilateral Eye Surgery 1 Stephanier genaro ROWE Comment on above: bilateral cataracts with iol implants Cardiac catheterization Jose Angel Guerra Syed Work Phone: cardiac stents Yeyo Diaz Cataract extraction and insertion of intraocular lens Yeyo ROWE Cataract surgery Jenaro diaz Work Phone: Colonoscopy Yeyo ROWE Decompression of med byron nerve Jenaro Lynch Work Phone: History of amputatio n of foot Status post partial amputation of right foot ([facility]) Guero Tam DO Work Phone: History of percutane ous transluminal coronary angioplasty History of PTCA Jenaro Lynch Work Phone: History of percutane ous transluminal coronary angioplasty History of PTCA Raulito Inman MD Work Phone: Procedure on back Jenaro ramirez Work Phone: Comment on above: nerve ablation; Procedure on back Yeyo KIRBY NIKAJoe Scrotum and testicle operation Jenaro Lynch Work Phone: Plan of Treatment Date Care Activity Detail Author Start: 04-26-2025 Tobacco Counseling Tobacco Counseling [facility] Start: 03-15-2025 Adult BMI Screening Adult BMI Screening [facility] Start: 02-28-2025 Adult BMI Screening Adult BMI Screening [facility] Start: 02-28-2025 Tobacco Screening Tobacco Screening [facility] Start: 11-06-2024 Depression Screening Depression Screening [facility] Start: 10-21-2024 End: 10-21-2024 Patient encounter procedure 10/21/2024 8:00 AM EDT Office Visit [facility] [address] [place] [address] Dolores Pickard, FOOD SANITARIAN-CHUTE TENDER [address] [place] [address] [facility] Start: 03-13-2024 [facility] Start: 03-10-2024 Referral to aircraft air conditioning mechanic [facility] Start: 03-09-2024 Comprehensive metabolic 2000 panel - Serum or Plasma [facility] Start: 03-09-2024 End: 03-09-2024 [facility] Start: 03-08-2024 Referral to psychiatrist [facility] Start: 03-08-2024 Referral to neurologist [facility] Start: 03-08-2024 End: 03-08-2024 [facility] Start: 03-08-2024 Hospital admission [facility] Start: 03-08-2024 Plain chest X-ray [facility] Start: 03-08-2024 Telemedicine consultation with patient [facility] Start: 03-08-2024 Blood culture for bacteria, including anaerobic screen [facility] Start: 03-06-2024 [facility] Start: 03-05-2024 Referral to aircraft air conditioning mechanic [facility] Start: 03-04-2024 Referral to aircraft air conditioning mechanic [facility] Start: 03-03-2024 Referral to neurologist [facility] Start: 03-03-2024 [facility] Start: 03-03-2024 Hospital admission [facility] Start: 02-04-2024 COVID-19 Vaccine ( season) COVID-19 Vaccine ( season) [facility] Start: 02-04-2024 Influenza vaccination [facility] Start: 11-15-2023 FUV, Provider: Raulito Inman, Status: Pen, Time: 2:40 PM FUV, Provider: Raulito Inman, Status: Pen, Time: 2:40 PM [place] [address] DO Work Phone: Start: 10-02-2023 Acid Fast Culture Acid Fast Culture [facility] Start: 09-30-2023 Blood Culture 1 Blood Culture 1 [facility] Start: 09-30-2023 Blood Culture 2 Blood Culture 2 [facility] Start: 09-30-2023 Wound Culture Wound Culture [facility] Start: 09-21-2023 Abscess Culture Abscess Culture [facility] Start: 08-10-2023 Acid Fast Culture Acid Fast Culture [facility] Start: 08-05-2023 Wound Culture Wound Culture [facility] Start: 07-12-2023 Duplex scan of lower limb veins US venous duplex LE BI [facility] Start: 07-12-2023 US Lower extremity vein - bilateral [facility] Start: 07-12-2023 Duplex scan veins of upper limb US venous duplex UE LT [facility] Start: 07-12-2023 US Upper extremity vein - left [facility] Start: 02-15-2023 FUV, Provider: Dolores Velazquez, Status: Pen, Time: 10:00 AM FUV, Provider: Dolores Velazquez, Status: Pen, Time: 10:00 AM [facility] [address] DO Work Phone: Start: 02-03-2023 COVID-19 Vaccine ( season) COVID-19 Vaccine ( season) [facility] Start: 01-25-2023 STRESS NUC, Provider: CHARISSE HHVI NUCLEAR 01,[id number], Status: Pen, Time: 8:30 AM STRESS NUC, Provider: CHARISSE HHVI NUCLEAR 01,[id number], Status: Pen, Time: 8:30 AM [facility] [address] DO Work Phone: Start: 07-12-2022 FUV, Provider: Raulito Inman, Status: Pen, Time: 9:20 AM FUV, Provider: Raulito Inman, Status: Pen, Time: 9:20 AM [facility] 250 DO Work Phone: Start: 10-26-2021 FUV, Provider: Raulito Inman, Status: Pen, Time: 9:30 AM FUV, Provider: Raulito Inman, Status: Pen, Time: 9:30 AM [facility] 250 DO Work Phone: Start: 03-05-2019 Pneumococcal Vaccine: Pediatrics (0 to 5 Years) and At-Risk Patients (6 to 64 Years) (2 of 2 - PCV) Pneumococcal Vaccine: Pediatrics (0 to 5 Years) and At-Risk Patients (6 to 64 Years) (2 of 2 - PCV) [facility] Start: 2015 Administration of varicella zoster vaccine Zoster (Shingles) Vaccine (1 of 2) [facility] Start: 2015 Zoster Vaccines (1 of 2) Zoster Vaccines (1 of 2) [facility] Start: 1987 DTaP/Tdap/Td Vaccines (1 - Tdap) DTaP/Tdap/Td Vaccines (1 - Tdap) [facility] Start: 1984 DTaP,Tdap and Td Vaccines (1 - Tdap) DTaP,Tdap and Td Vaccines (1 - Tdap) [facility] Start: 1984 Hepatitis B Vaccines (1 of 3 - 19+ 3-dose series) Hepatitis B Vaccines (1 of 3 - 19+ 3-dose series) [facility] Start: 1984 Urine screening for protein Diabetes: Urine Protein Screening [facility] Start: 1983 Adult BMI Follow Up Plan Adult BMI Follow Up Plan [facility] Start: 1983 Diabetic foot examination Diabetic Foot Exam [facility] Start: 1983 Hepatitis C screening Hepatitis C Screening [facility] Start: 1975 Diabetic foot examination Diabetes: Foot Exam [facility] Start: 1975 Glaucoma screening Diabetes: Retinopathy Screening [facility] Start: 1966 MMR Vaccines (1 of 1 - Standard series) MMR Vaccines (1 of 1 - Standard series) [facility] Start: 1965 Glaucoma screening Diabetic Ophthalmology Exam [facility] Start: 1965 Hemoglobin A1c measurement Diabetes: Hemoglobin A1C [facility] Start: 1965 HIV screening HIV Screening [facility] Start: 1965 Lipid panel Lipid Panel [facility] Start: 1965 Screening for malignant neoplasm of colon [facility] Start: 1965 Yearly Adult Physical Yearly Adult Physical [facility] Bacteria identified in Blood by Culture [facility] Patient Education [facility] Work Phone: Patient referral [facility] Work Phone: [facility] Immunizations Immunization Date Immunization Notes Care Provider Sachin pettit 11-13-2020 Pfizer-BioNTech COVI D-19 Vacc 30 MCG/0.3ML Intramuscular Suspension Jenaro Lynch Work Phone: [facility] 10-23-2020 Pfizer-BioNTech COVI D-19 Vacc 30 MCG/0.3ML Intramuscular Suspension Jenaro Lynch Work Phone: [facility] 01-14-2019 influenza, seasonal, injectable Jenaro Lynch Other [facility] 01-14-2019 influenza virus vacc ine, unspecified formulation Yeyo ROWE [facility] 04-02-2018 influenza virus vacc ine, unspecified formulation Yeyo ROWE [facility] 04-02-2018 influenza, injectabl e, quadrivalent, preservative free DO Jenaro Lynch Work Phone: [facility] 03-05-2018 influenza virus vacc ine, unspecified formulation Jenaro Lynch Work Phone: [facility] 250 DO Work Phone: 03-05-2018 pneumococcal polysaccharide vaccine, 23 valent Jenaro Lynch Work Phone: [facility] 250 DO Work Phone: 03-07-2016 influenza virus vacc ine, unspecified formulation Yeyo ROWE [facility] 03-07-2016 influenza, injectabl e, quadrivalent, preservative free Jenaro Mari Lynch Work Phone: [facility] 600 DO Work Phone: 02-22-2016 pneumococcal polysaccharide vaccine, 23 valent Jenaro P Jetts Work Phone: [facility] Payers Date Payer Category Payer Medicaid [id number] 15 2023 Self-pay [id number] 2022 Private Health Insurance [id number] 15 2022 Private Health Insurance [id number] 2022 Private Health Insurance [id number] 2022 Medicaid [id number] 1965 Unknown [id number] 2.16.84 0.1.463603.3.579.2.593 1965 Unknown [id number] 2.16.840.1.670873.3.579.2.1068 1965 Unknown [id number] 2.16.840.1.594171.3.579.2.356 1965 Unknown [id number] 2.16.840.1.164391.3.579.2.356 1965 Unknown [id number] 2.16.840.1.686843.3.579.2.356 1965 Unknown [id number] 2.16.840.1.156805.3.579.2.1286 1965 Unknown [id number] 2.16.840.1.787774.3.579.2.1286 1965 Unknown [id number] 2.16.840.1.535009.3.579.2.1286 1965 Unknown [id number] 2.16.840.1.219304.3.579.2.1286 1965 Unknown [id number] 2.16.840.1.811995.3.579.2.1286 1965 Unknown [id number] 2.16.840.1.504995.3.579.2.1286 1965 Unknown [id number] 2.16.840.1.757938.3.579.2.1286 1965 Unknown [id number] 2.16.840.1.987842.3.579.2.1286 1965 Unknown [id number] 2.16.840.1.472305.3.579.2.1246 1965 Unknown [id number] 2.16.8 40.1.860217.3.579.2.72 1965 Unknown [id number] 2.16.8 40.1.237221.3.579.2.72 1965 Unknown [id number] 2.16.8 40.1.657065.3.579.2.72 1965 Unknown [id number] 2.16.8 40.1.375568.3.579.2.72 1965 Unknown [id number] 2.16.8 40.1.279266.3.579.2.72 1965 Unknown [id number] 2.16.8 40.1.734847.3.579.2.72 1965 Unknown [id number] 2.16.8 40.1.534482.3.579.2.72 1965 Unknown [id number] 2.16.8 40.1.744936.3.579.2.72 1965 Unknown [id number] 2.16.8 40.1.543648.3.579.2.72 1965 Unknown [id number] 2.16.8 40.1.226883.3.579.2.72 1965 Unknown [id number] 2.16.8 40.1.477726.3.579.2.72 1965 Unknown [id number] 2.16.8 40.1.087628.3.579.2.72 1965 Unknown [id number] 2.16.8 40.1.396309.3.579.2. 1965 Unknown [id number] 2.16.8 40.1.351448.3.579.2. 1965 Unknown [id number] 2.16.8 40.1.099123.3.579.2 1965 Unknown [id number] 2.16.8 40.1.069883.3.579.2. 1965 Unknown [id number] 2.16.8 40.1.679841.3.579.2 1965 Unknown [id number] 2.16.8 40.1.013264.3.579.2 1965 Unknown [id number] 2.16.8 40.1.484428.3.579.2 1965 Unknown [id number] 2.16.8 40.1.023750.3.579.2 1965 Unknown [id number] 2.16.8 40.1.289330.3.579.2 1965 Unknown [id number] 2.16.8 40.1.742179.3.579.2 1965 Unknown [id number] 2.16.8 40.1.810831.3.579.2 1965 Unknown [id number] 2.16.8 40.1.359829.3.579.2. 1965 Unknown [id number] 2.16.8 40.1.039704.3.579.2 1965 Unknown [id number] 2.16.8 40.1.732169.3.579.2. 1965 Unknown [id number] 2.16.8 40.1.353871.3.579.2 1965 Unknown [id number] 2.16.840.1.868000.3.579.2.1286 1965 Unknown [id number] 2.16.840.1.513553.3.579.2.1286 1965 Unknown [id number] 2.16.840.1.982452.3.579.2.1286 1965 Unknown [id number] 2.16.840.1.680922.3.579.2.128 1965 Unknown [id number] 2.16.840.1.636568.3.579.2.128 1965 Unknown [id number] 2.16.840.1.708538.3.579.2.1285 1965 Unknown [id number] 2.16.840.1.116549.3.579.2.1244 1965 Unknown [id number] 2.16.840.1.473976.3.579.2.1244 1965 Unknown [id number] 2.16.8 40.1.145457.3.579.2.727 1965 Unknown [id number] 2.16.8 40.1.214016.3.579.2.727 1959 Unknown [id number] 2.1 6.840.1.585711.19 Unknown [employer] Unknown [id number] 2.16.8 40.1.761099.3.579.2.531 Unknown [id number] 2.16.8 40.1.486978.3.579.2.531 Unknown [id number] 2.16.8 40.1.249978.3.579.2.531 Unknown [id number] 2.16.8 40.1.848567.3.579.2.531 Unknown [id number] 2.16.8 40.1.280511.3.579.2.531 Unknown [id number] 2.16.8 40.1.658399.3.579.2.531 Unknown [id number] 2.16.8 40.1.543287.3.579.2.531 Unknown [id number] 2.16.8 40.1.283894.3.579.2.531 Social History Date Type Detail Facility Start: 08-08-2023 End: 02-29-2024 Caffeine use Caffeine use [facility] Other Comment on above: 2 cups coffee, 4-6 c ups tea daily, occaional soda; qauit 07/2020; Start: 08-08-2023 End: 02-29-2024 Sex Assigned At [facility] Start: 07-14-2020 End: 03-08-2024 Tobacco smoking status NHIS Smoker (finding) [facility] Start: 1965 Sex Assigned At Male F [facility] Start: 11-23-2022 End: 10-23-2023 Tobacco smoking status Heavy tobacco smoker (finding) [facility] Tobacco smoking status Never [facility] Start: 10-24-2023 [facility] Start: 10-05-1981 End: 06-05-2020 History of tobacco use Cigarette Smoker [facility] [facility] Work Phone: Start: 10-24-2023 End: 11-07-2023 Tobacco use and exposure Smokeless tobacco non-user [facility] Work Phone: Start: 10-24-2023 Alcoholic beverage intake Lifetime non-drinker (finding) [facility] Work Phone: Start: 1965 Sex assigned at Not on file [facility] Work Phone: Start: 10-14-2023 End: 10-24-2023 Exposure to SARS-CoV-2 (event) Not sure [facility] Start: 03-10-2024 Tobacco smoking stat [facility] Unknown if ever smoked [facility] Start: 10-05-1981 [facility] Start: 02-29-2024 Alcoholic beverage intake Ex-drinker (finding) [employer] [facility] Has the [employer], [employer], or [employer] company threatened to shut off services in your home in past 12Mo No [employer] [facility] How often to you hav e a drink containing alcohol? 2-4 times a month [employer] [facility] How many standard drinks containing alcohol do you have on a typical day? 1 or 2 [employer] [facility] How often do you hav e 6 or more drinks on 1 occasion? Never [facility] Start: 01-06-2015 Sex Male (finding) [employer] [facility] Medical Equipment Procedure Code Equipment Code [...] Aortogram, abdominal, with bilateral lower extremity runoff FDA Start: 09-27-2018 Aortogram, abdominal, with bilateral lower extremity runoff FDA Start: 09-27-2018 Aortogram, abdominal, with bilateral lower extremity runoff FDA Start: 09-27-2018 Aortogram, abdominal, with bilateral lower extremity runoff IR STENT SMART 10 X 80 120 CM FDA Start: 09-27-2018 Start: 12-16-2013 [id number] FDA Start: 07-14-2020 Graft Vsc 50cm 6 mm [place] Thnwl Hep Propaten Ptfe Rem Rng - [id number] Start: 11-08-2023 Comment on above: Description: RIGHT F EMORAL ARTERY Stent Vsc Epic 10mm 100mm 120cm 6fr Rdpq Otw Slf Xpd Gw - [id number] FDA Start: 11-07-2023 Goals Date Patient Goal Desired Activity /State Personal health goal Comment on above: Formatting of this n ote might be different from the original. Evaluation of progress towards goal: Patient is planning to transition back to SNF at discharge. Functional Status Date Assessment Result Facility 03-13-2024 Functional status Patient at Baseline [facility] Work Phone: 03-06-2024 Functional status Patient at Baseline [facility] Work Phone: 10-23-2023 Functional Status No [facility] 06-02-2023 Functional Status N/A [facility] 02-14-2023 Functional Status N/A [facility] 01-30-2023 Functional Status N/A [facility] 11-23-2022 Functional Status N/A [facility] Mental Status Date Assessment Result Facility 03-13-2024 Cognitive function Patient at Baseline [facility] Work Phone: 03-06-2024 Cognitive function Patient at Baseline [facility] Work Phone: Clinical Notes 06-23-2021 to 03-22-2024 Telephone Encounter - Feli Stevenson - 03/22/2024 11:24 PM EDTTelephone Encounter - Feli Stevenson - 03/22/2024 11:24 PM EDTGuero Tam DO - 03/19/2024 5:25 PM EDT Note Date & Type Note Facility 03-22-2024 Miscellaneous Notes Formattin g of this note might be different from the original. Contract: [id number] - Re: high Blood Sugars . Called Dr. Tam and connected to caller documented in this encounter [facility] 03-22-2024 Telephone encount er Note Contract: [id number] - Re: high Blood Sugars . Called Dr. Tam and connected to caller [facility] 03-19-2024 History of Presen t illness Narrative Patient Name: Solomon Pickard Date of : 1965 Date of Service: 03/19/2024 Facility: [facility] Type of Visit: Skilled Visit Subjective Solomon Pickard is a 58 y.o. male [facility] for No chief complaint on file. . Solomon was seen today for a therapy visit. He is participating in therapy. He is doing great . The Lyrica is controlling his pain well. He was use baclofen as needed for muscle spasms that also works well. His blood sugars have been pretty good. He is working on getting back home with home health and physical therapy. He is going to get a medical alert bracelet. They are working to get a ramp for his home so he can get in and out easier. He is very happy with his progress. He has no new problems to report. He is using his inhalers and is breathing has been good. Still does smoke and vape. Allergies: Penicillins, Oxycodone-acetaminophen, Propoxyphene, Acetaminophen, Isosorbide dinitrate, and Latex Code Status: FULL CODE BP 124/78 Pulse 85 Temp 36.7 C (98 F) Resp 19 SpO2 96% Physical Exam Vitals reviewed. Constitutional: General: He is not in acute distress. Appearance: He is overweight. He is not ill-appearing. Comments: On scooter in room HENT: Head: Normocephalic. Cardiovascular: Rate and Rhythm: Normal rate and regular rhythm. Pulses: Normal pulses. Heart sounds: Normal heart sounds. No murmur heard. Pulmonary: Effort: Pulmonary effort is normal. No respiratory distress. Breath sounds: Normal breath sounds. No wheezing, rhonchi or rales. Abdominal: General: Bowel sounds are normal. Palpations: Abdomen is soft. Tenderness: There is no abdominal tenderness. Musculoskeletal: Right Lower Extremity: Right leg is amputated below knee. Neurological: General: No focal deficit present. Mental Status: He is alert and oriented to person, place, and time. Cranial Nerves: Cranial nerves 2-12 are intact. Gait: Gait abnormal (Ambulating in a motorized scooter). Psychiatric: Attention and Perception: Attention normal. Mood and Affect: Mood and affect normal. Speech: Speech normal. Behavior: Behavior normal. Behavior is cooperative. Thought Content: Thought content normal. Cognition and Memory: Cognition normal. Judgment: Judgment normal. Comments: Cognition appears intact at the present time. He is alert and oriented x3. Summary / Assessment / Plan 1. Diabetic polyneuropathy associated with type 2 diabetes mellitus ([facility]) 2. Encounter for orthopedic aftercare following surgical amputation 3. Other abnormalities of gait and mobility 4. Restless leg syndrome He is progressing in therapy. He is very happy with his progress. Medically stable. His fingerstick blood sugars have been a little elevated lately but others have been very good. Continue current regimen for now. All medications reviewed and are medically necessary. ELECTRONICALLY SIGNED BY: Guero Tam DO documented in this encounter [facility] 03-15-2024 History of Presen t illness Narrative Patient Name: Solomon Pickard Date of : 1965 Date of Service: 03/15/2024 Facility: [facility] Type of Visit: Admission H&P Subjective Solomon Pickard is a 58 y.o. male seen today at prison facility for admission for therapies. Solomon returns to [facility] from [facility] where he was admitted for altered mental status. He does not really recall much detail around the time that he was admitted since he had altered mental status. He was confused. They told him they could not pinpoint exactly what caused it but thought maybe it was due to combination of low blood pressure, chronic kidney disease and diabetes. He recently had right below-knee amputation for a foot ulcer. He has been taking all of his medications as prescribed. His works during the day and he was home alone. His daughter tried calling and had difficulty getting hold of him so she went over and found him confused. They sent him to the hospital where he stayed for a bit. He saw Neurology and Gastroenterology. Some of his medications were stopped. He presents here for therapy. He is going to get a sleeve put on his knee and then in a few months get fitted for prosthesis. He has no new problems to report. He does have phantom limb pain in his on Lyrica for that. Allergies: Penicillins and Latex Code Status: FULL CODE The following portions of the patient's history were reviewed and updated as appropriate: allergies, current medications, past family history, past medical history, past social history, past surgical history, problem list, and medication reconciliation was completed including current medication and post discharge medication. BP (!) 131/94 Pulse 84 Temp 36.7 C (98 F) Resp 18 Wt 89.4 kg (197 lb 3.2 oz) SpO2 95% BMI 26.75 kg/m Physical Exam Constitutional: General: He is not in acute distress. Appearance: He is overweight. He is not ill-appearing. Comments: In bed HENT: Head: Normocephalic. Eyes: General: No scleral icterus. Extraocular Movements: Extraocular movements intact. Conjunctiva/sclera: Conjunctivae normal. Cardiovascular: Rate and Rhythm: Normal rate and regular rhythm. Pulses: Normal pulses. Heart sounds: Normal heart sounds. No murmur heard. Pulmonary: Effort: Pulmonary effort is normal. No respiratory distress. Breath sounds: Normal breath sounds. No wheezing, rhonchi or rales. Abdominal: General: Bowel sounds are normal. Palpations: Abdomen is soft. Tenderness: There is no abdominal tenderness. Musculoskeletal: Cervical back: Neck supple. Left lower leg: No edema. Right Lower Extremity: Right leg is amputated below knee. Skin: General: Skin is warm. Neurological: General: No focal deficit present. Mental Status: He is alert and oriented to person, place, and time. Cranial Nerves: Cranial nerves 2-12 are intact. Gait: Gait abnormal (Ambulating in a motorized scooter). Psychiatric: Attention and Perception: Attention normal. Mood and Affect: Mood and affect normal. Speech: Speech normal. Behavior: Behavior normal. Behavior is cooperative. Thought Content: Thought content normal. Cognition and Memory: Cognition normal. Judgment: Judgment normal. Comments: Cognition appears intact at the present time. He is alert and oriented x3. Summary / Assessment / Plan 1. Diabetic polyneuropathy associated with type 2 diabetes mellitus ([facility]) 2. Disorientation 3. Other abnormalities of gait and mobility 4. Status post partial amputation of right foot ([facility]) 5. Atherosclerosis of [place] coronary artery of [place] heart without angina pectoris 6. Atrial fibrillation ([facility]) 7. Primary hypertension Admit to [facility] for therapies. Plan to do therapy and then go home in a few weeks. Continue current regimen. Full code. Good rehab potential. ELECTRONICALLY SIGNED BY: Guero Tam DO documented in this encounter [facility] 03-15-2024 Miscellaneous Notes Formattin g of this note might be different from the original. Patients spouse called in to question about getting a aircraft technician sock. Stated patient is currently is in a care facility. Please advise and call spouse. documented in this encounter [facility] 03-15-2024 Telephone encount er Note Patients spouse called in to question about getting a aircraft technician sock. Stated patient is currently is in a care facility. Please advise and call spouse. [facility] 03-13-2024 Discharge summary Note Date/Time March 13, 2024 9:46am [facility] [address] [place] [address] Discharge Summary Signed Patient: Solomon Pickard SR MR#: [id number] : 1965 Acct:[id number] Age/Sex: 58 / M Adm Date: 4 Loc: Room: 4Z0690-[address]: Remberto Ervin MD Copies to: DO Remberto Guzman MD~ Providers Date of Discharge: 03/13/24 Discharging Provider: Remberto Ervin Primary Care Provider: Jenaro Lynch Consults: 03/08/24 14:15 Consult to Telemedicine Stat Comment: Reason for Consult: stroke alert/standby 03/08/24 22:05 Consult to Neurology Routine Comment: Consulting Provider: Luther Dozier Reason For Exam: Sudden altered mental status, stroke ruled out Has Provider Been Notified: Yes Date of Notification: 03/09/24 Time of Notification: 07:50 03/08/24 22:07 Consult to Psychiatry Routine Comment: Consulting Provider: Job James Reason For Exam: pt has sudden altered mentation Has Provider Been Notified: Yes Date of Notification: 03/09/24 Time of Notification: 07:54 Extended Comment: no obvious metabolic cause or stroke 03/09/24 00:22 Consult to Speech Therapy Stat Comment: Reason for ST Consult: Bedside Swallow Eval & Tx Diet per ST Recommendations: Yes Modified Barium Swallow Study, If Recommended: Yes 03/09/24 00:23 Consult to Physical Therapy Routine Comment: Physician Instructions: Consult to PT for:: Evaluation and Treat OT [Consult to Occupational Therapy] Routine Comment: Physician Instructions: Consult to OT for:: Evaluation and Treat 03/10/24 10:13 Consult to Gastroenterology Routine Comment: Consulting Provider: Mike Burleson Reason For Exam: Rule out obstrucrtive jaundice Has Provider Been Notified: Yes Date of Notification: 03/10/24 Time of Notification: 10:20 Discharge Diagnosis (1) Altered mental status: (2) Syncope: (3) Anemia: (4) Restless legs syndrome: (5) LFT elevation: (6) Chronic kidney disease: (7) Hypertension: (8) Hyperlipidemia: (9) Chronic back pain: Final Diagnosis Final Discharge Diagnosis: As listed above and others that are not listed Summary Hospital Course Hospital course: This is my first day taking care of this gentleman. Please refer to the body ofthe chart for details given the fact that the majority of this hospitalization had been managed by my colleague in collaboration with other specialists and family support specialist. Patient came in with a change in mental status. A comprehensive neurological workup came back unremarkable. Neurology cleared the patient to go home withoutfurther additional inpatient diagnostic or therapeutic intervention. Patient was found to have elevated LFTs. He was seen by GI. He had MRCP which came back negative for significant liver or biliary issues. Thickening of the stomach. GI recommended outpatient EGD. GI cleared patient to be discharged home. Peripheral vascular disease. Right BKA CKD stage III. PT OT eval and treatment. Pending discharge to nursing facility. Patient has multiple complex medical issues as listed above and others that are not listed. All appear to be stable. Patient is a cleared by GI and neurology to be discharged. Patient wants to be discharged to the nursing facility. He is not receiving having any additional diagnostic or therapeutic intervention orobservation. At this time, I do not have any clear or strong clinical justification to extend inpatient hospitalization. Patient however will requireclose and frequent monitoring as well as additional work-up, investigation and therapeutic intervention that could take place from this point on post discharge. That is to prevent relapse, decompensation, rehospitalization and other medical implications. I instructed patient to ask her primary care doctor to obtain [facility] record entirely to address abnormalities seen on labs and imagingthat I have and have not addressed during this hospitalization, follow-up on pending blood work, imaging and pathology is if available and to follow-up on needed medical care in the outpatient setting. Time Spent with Patient Time spent providing/coordinating discharge services (# min): 45 Discharge Plan Discharge Plan Patient Disposition: Penitentiary Facility Activity: No Activity Restriction Additional Instructions: I may not have addressed or treated all of your medical illnesses or the abnormal blood work or imaging studies during this hospitalization. Please ask your primary care provider to obtain [facility] records entirely to follow up on all of the abnormal physical, laboratory, and imaging findings that I have not addressed. Please return back to the emergency room or seek medical attention if your symptoms worsen or return. Discharging you from [facility] does not mean that your medical care ends here and now. You may still need additional monitoring, work up, investigation, and treatment plan to be handled from this point on by out patient providers including your primary care provider and specialists. For any medication question, please contact your retail pharmacist or your primary care provider. Thank you. Prescriptions: No Action albuterol sulfate [ProAir HFA] 90 mcg/actuation Hfa Aerosol Inhaler 2 puff INHALATION Q6HR PRN (Reason: Shortness Of Breath) atorvastatin 80 mg Tablet 80 mg PO DAILY Atrovent HFA 17 mcg/actuation HFA aerosol inhaler 2 inh inhalation TID tiotropium bromide [Spiriva with HandiHaler] 18 mcg capsule, w/inhalation device 1 cap inhalation DAILY Rx Instructions: puncture 1 cap using device; one dose = 2 inhalations ferrous sulfate 325 mg (65 mg iron) tablet 325 mg PO Q2D 30 Days Qty: 15 0RF aspirin 81 mg Tablet,Chewable 81 mg PO DAILY nitroglycerin [Nitrostat] 0.4 mg tablet, sublingual 0.4 mg sublingual Q5-15M PRN (Reason: chest pain) Rx Instructions: do not exceed 3 doses per episode valsartan-hydrochlorothiazide 160-12.5 mg tablet 1 tab PO DAILY Jardiance 10 mg tablet 10 mg PO DAILY Trulicity 0.75 mg/0.5 mL pen injector 0.75 mg subcut QWEEK Nurtec ODT 75 mg tablet,disintegrating 75 mg PO DAILY PRN (Reason: migraine headache) clopidogrel 75 mg tablet 75 mg PO DAILY tizanidine 4 mg capsule 4 mg PO QHS pregabalin [Lyrica] 200 mg capsule 200 mg PO TID omeprazole 40 mg capsule,delayed release(DR/EC) 40 mg PO DAILY ropinirole 1 mg tablet 1 mg PO TID amitriptyline 25 mg tablet 25 mg PO DAILY metoprolol tartrate 100 mg tablet 50 mg PO BID tamsulosin [Flomax] 0.4 mg capsule 0.4 mg PO BID sildenafil [Viagra] 100 mg tablet 100 mg PO DAILY PRN (Reason: sexual activity) Rx Instructions: administer 30 minutes to 4 hours before activity isosorbide mononitrate 30 mg tablet extended release 24 hr 30 mg PO DAILY metformin 1,000 mg tablet 1,000 mg PO BID 90 Days Qty: 180 1RF (DME) FreeStyle Pedro 2 Sensor Kit See Rx Instructions .ROUTE Qty: 1 0RF Rx Instructions: As directed (DME) FreeStyle Pedro 2 [place] Misc See Rx Instructions .ROUTE Qty: 1 0RF Rx Instructions: As directed ropinirole 1 mg tablet 1 mg PO TID Qty: 240 0RF Exam Physical Exam Vital Signs: Temp Pulse Resp BP Pulse Ox O2 Del Method 98.1 F 80 16 160/94 H 100 Room Air 03/13/24 07:45 03/13/24 07:45 03/13/24 07:45 03/13/24 07:45 03/13/24 07:45 03/13/24 07:45 Diagnostic Studies Completed and Pending Studies Pending studies at discharge: 03/08/24 16:02 Blood Culture Stat 03/10/24 06:49 NMDA [U-sqkllc-B-Aspartate IgG, Ser] IN AM Preliminary micro results at discharge 03/08/24 15:56 Blood Culture - Preliminary Blood - Right Antecubital No Growth 4 Days 03/08/24 16:02 Blood Culture - Preliminary Blood - Right Wrist No Growth 4 Days Labs on day of discharge: 03/13/24 06:37: POC Glucose 162 03/13/24 06:00: Corrected WBC 6.0, Uncorrected WBC Count 6.0, RBC 4.12, Hgb 9.5 L, Hct 29.9 L, MCV 72.6 L, MCH 23.0 L, MCHC 31.7 L, RDW 24.5 H, Plt Count 197, MPV 8.9, Neut % (Auto) 66.7, Lymph % (Auto) 14.7, Wells % (Auto) 14.4, Eos % (Auto) 3.0, Baso % (Auto) 1.2, Nucleat RBC Rel Count 0.1, Neut # (Auto) 4.0, Lymph # (Auto) 0.9 L, Wells # (Auto) 0.9 H, Eos # (Auto) 0.2, Baso # (Auto) 0.1, PHA Creatinine Clear 56.79, Sodium 134 L, Potassium 3.9, Chloride 101, Carbon Dioxide 23.9, Anion Gap 13.0, BUN 18, Creatinine 1.51 H, Est GFR (CKD-EPI) 53.205, Glucose 149 H, Calcium 9.1, Phosphorus 3.0, Magnesium 1.7 L, Total Bilirubin 0.9, AST 28, ALT 38, Alkaline Phosphatase 313 H, Total Protein 7.5, Albumin 3.6, Globulin 3.9, Albumin/Globulin Ratio 0.9 03/12/24 20:34: POC Glucose 174 03/12/24 16:35: POC Glucose 216 03/12/24 11:18: POC Glucose 230 Documented By: Remberto Ervin MD 03/13/2443 Signed By: <Electronically signed by Remberto Ervin MD> 03/13/2446 [facility] Work Phone: 1(753) 465-730810-08-2024 Progress note Author João Powell [facility] March 12, 2024 1:46pm Note Date/Time March 12, 2024 1: 34pm [facility] [address] [place] [address] Hospitalist Progress Note Signed Patient: Solomon Pickard SR MR#: [id number] : 1965 Acct:[id number] Age/Sex: 58 / M Adm Date: 4 Loc: 3T Room: [address] [place] [address] Type: ADM IN Attending Dr: João Powell MD Copies to: ~ Date of Service: 03/12/2024 Subjective Subjective Narrative: Patient seen examined today. He is back to his baseline mental status. Oriented x 3. Continues to be asymptomatic no abdominal pain no nausea no vomiting. No events overnight. Patient is hemodynamically stable. GI follow-up was appreciated. Labs were reviewed and they were unremarkable except for his well-known iron deficiency anemia. His renal function is improving. Patient is cleared for medical discharge however he is pending pre-CERT for SNF placement. Exam Physical Exam Vital Signs: Temp Pulse Resp BP Pulse Ox O2 Del Method 98.4 F 102 H 16 128/77 100 Room Air 03/12/24 07:31 03/12/24 11:13 03/12/24 11:13 03/12/24 11:13 03/12/24 11:13 03/12/24 11:13 Narrative: Constitutional More calm more alert and oriented x3, not in acute distress, pleasant, cooperative, sitting up in chair comfortably HEENT Exam Head Exam: normocephalic Eye Exam: no EOMI, PERRLA, conjunctival pallor with no scleral icterus ENT Exam: mucous membranes dry Neck Exam Neck Exam: no meningismus Respiratory Exam Respiratory Exam: CTA bilaterally and no respiratory distress, no wheezes or crackles Cardiovascular Exam Cardiovascular exam: tachycardia but regular rhythm, no murmurs, normal S1 and S2 Abdominal Exam GI/Abdominal Exam: no tenderness, no organomegaly, negative pollard's sign Extremities Exam Extremities Exam: normal capillary refill and amputation (Right lower extremity) Skin Exam Skin Exam: pallor and dry Neurological Exam Sitting up in chair, oriented x3, following commands, no focal motor or sensory deficits Objective Lab Results 03/12/24 06:51 03/12/24 06:51 Microbiology Results Microbiology 03/08/24 16:02 Blood - Right Wrist Blood Culture - Preliminary No Growth 3 Days 03/08/24 15:56 Blood - Right Antecubital Blood Culture - Preliminary No Growth 3 Days Meds Allergies and Active Meds Allergies acetaminophen [From Percocet] Allergy (Unknown, Verified 03/08/24 14:17) Vomiting oxycodone [From Percocet] Allergy (Unknown, Verified 03/08/24 14:17) Vomiting Penicillins Allergy (Unknown, Verified 03/08/24 14:17) Anaphylaxis latex Allergy (Verified 03/08/24 14:17) Unknown Reaction Active Meds: Active Medications Generic Name Dose Route Start Last Admin Trade Name Freq PRN Reason Stop Dose Admin Acetaminophen 650 mg 03/09/24 14:55 03/09/24 22:02 Acetaminophen 325 Mg Tablet PO 03/09/25 14:54 650 mg Q8H PRN Administration Pain Albuterol 2 puff 03/08/24 19:28 Albuterol Hfa 60 Puff/8 Gram Inhaler INHALATION 03/08/25 19:27 Q6HR PRN Shortness Of Breath Aspirin 81 mg 03/09/24 09:00 03/12/24 08:19 Aspirin 81 Mg Tab.Chew PO 03/09/25 08:59 81 mg DAILY SATISH Administration Atorvastatin Calcium 80 mg 03/09/24 09:00 03/12/24 08:20 Atorvastatin 80 Mg Tablet PO 03/09/25 08:59 80 mg DAILY SATISH Administration Duloxetine HCl 30 mg 03/09/24 22:00 03/11/24 21:41 Duloxetine 30 Mg Capsule. PO 03/09/25 21:59 30 mg QHS SATISH Administration Ferrous Sulfate 324 mg 03/08/24 20:00 03/10/24 21:09 Ferrous Sulfate 324 Mg Tablet. PO 03/08/25 19:59 324 mg Q48H SATISH Administration Heparin Sodium (Porcine) 5,000 unit 03/08/24 22:00 03/12/24 13:02 Heparin 5,000 Unit/Ml Vial SUBCUT 03/08/25 21:59 5,000 unit Q8HR SATISH Administration Magnesium Sulfate 2 gm in 50 mls @ 25 mls/hr 03/10/24 09:23 03/12/24 06:02 Magnesium Sulf 2gm-*Swfi* IV 03/10/25 09:22 25 mls/hr DAILY PRN Administration Hypomagnesemia Insulin Aspart 0 units 03/10/24 12:00 03/12/24 11:18 Insulin Aspart 300 Units/3 Ml Insuln.Pen SUBCUT 03/10/25 11:59 2 units TID.WM.HS SATISH Administration Protocol Ipratropium [place] 0.5 mg 03/08/24 20:00 03/12/24 09:34 Ipratropium [place] 0.5 Mg/2.5 Ml Vial.Neb INHALATION 03/08/25 19:59 0.5 mg QID.RESP SATISH Administration Isosorbide Mononitrate 30 mg 03/09/24 09:00 03/12/24 08:20 Isosorbide Mononitrate 24hr Er 30 Mg Tab.Er.24h PO 03/09/25 08:59 30 mg DAILY SATISH Administration Lorazepam 0.5 mg 03/11/24 12:01 03/11/24 12:46 Lorazepam 0.5 Mg Tablet PO 09/07/24 12:00 0.5 mg ONCE PRN Administration Pre-medication for MRI Nitroglycerin 0.4 mg 03/08/24 19:28 Nitroglycerin 0.4 Mg Tab.Subl SUBLINGUAL 03/08/25 19:27 Q5MIN.X3 PRN chest pain Pom Dulaglutide [ 0.75 mg 03/15/24 09:00 Trulicity] 0.75 Mg/0 SUBCUT 03/15/25 08:59 .5 Ml Pen Injector QWEEK SATISH Ondansetron HCl 4 mg 03/12/24 00:22 03/12/24 00:30 Ondansetron 4 Mg/2 Ml Vial IV-PUSH 03/12/25 00:21 4 mg Q6H PRN Administration Nausea And Vomiting Pantoprazole Sodium 40 mg 03/09/24 09:00 03/12/24 08:20 Pantoprazole 40 Mg Tablet.Dr PO 03/09/25 08:59 40 mg DAILY SATISH Administration Sodium Chloride 0 ml 03/08/24 14:21 03/08/24 16:49 Sodium Chloride 0.9 % 10 Ml Syringe IV-PUSH 03/08/25 14:20 10 ml PRN PRN Administration Flush A&P - Hospitalist Assessment/Plan (1) Altered mental status: (2) Syncope: (3) Anemia: (4) Restless legs syndrome: (5) LFT elevation: Plan Acute Delirium, Encephalopathy likely metabolic-Resolved Likely psychogenic in etiology CVA ruled out Post-concussion for possible Head trauma vs psychogenic Elevated LFTs likely due to drug induced liver injury, rule out obstructive jaundice>>Resolved ROEL in the setting of pre renal azotemia-Improving Iron deficiency Anemia -Continue monitoring on medical floor telemetry -MR brain without contrast is negative -Neurology and psychiatry consulted, will follow recommendations, pt is back to baseline mental status -ROEL improved with IV hydration -Would reduce atorvastatin to 20 mg p.o. daily for now -GGT and ALP as well as bili is elevated, liver ultrasound negative, MRI abdomendid not show liver pathology -GI following, recommended EGD as outpatient -PT eval recs appreciated -Continue current medications I discussed the plan with the patient and family at bedside. They understand agree with this plan of management. Time Spent With Patient (min): 45 Documented By: João Powell MD 03/12/24 1331 Signed By: <Electronically signed by João Powell MD> 03/12/24 1346 [facility] Work Phone: 1([phone] 348-644310-08-2024 Progress note Author Mike Burleson [facility] March 12, 2024 9:28am Note Date/Time March 12, 2024 9: 28am [facility] [address] [place] [address] Gastroenterology PN Signed Patient: Solomon Pickard SR MR#: [id number] : 1965 Acct:[id number] Age/Sex: 58 / M Adm Date: 4 Loc: Room: [address] [place] [address] Type: ADM IN Attending Dr: João Powell MD Copies to: DO Mike Guzman MD Mohamad Akil, MD~ Date of Service: 03/12/2024 Exam Physical Exam Vital Signs: Temp Pulse Resp BP Pulse Ox O2 Del Method 98.4 F 94 18 145/86 H 100 Room Air 03/12/24 07:31 03/12/24 07:31 03/12/24 07:31 03/12/24 07:31 03/12/24 07:31 03/12/24 07:32 Objective Allergies and Medications Allergies/Adverse Reactions: Allergies Allergy/AdvReac Type Severity Reaction Status Date / Time acetaminophen [From Percocet] Allergy Unknown Vomiting Verified 03/08/24 14:17 oxycodone [From Percocet] Allergy Unknown Vomiting Verified 03/08/24 14:17 Penicillins Allergy Unknown Anaphylaxis Verified 03/08/24 14:17 latex Allergy Unknown Verified 03/08/24 14:17 Reaction Active Meds: Active Medications Generic Name Dose Route Start Last Admin Trade Name Olu PRN Reason Stop Dose Admin Acetaminophen 650 mg 03/09/24 14:55 03/09/24 22:02 Acetaminophen 325 Mg Tablet PO 03/09/25 14:54 650 mg Q8H PRN Administration Pain Albuterol 2 puff 03/08/24 19:28 Albuterol Hfa 60 Puff/8 Gram Inhaler INHALATION 03/08/25 19:27 Q6HR PRN Shortness Of Breath Aspirin 81 mg 03/09/24 09:00 03/12/24 08:19 Aspirin 81 Mg Tab.Chew PO 03/09/25 08:59 81 mg DAILY SATISH Administration Atorvastatin Calcium 80 mg 03/09/24 09:00 03/12/24 08:20 Atorvastatin 80 Mg Tablet PO 03/09/25 08:59 80 mg DAILY SATISH Administration Duloxetine HCl 30 mg 03/09/24 22:00 03/11/24 21:41 Duloxetine 30 Mg Capsule. PO 03/09/25 21:59 30 mg QHS SATISH Administration Ferrous Sulfate 324 mg 03/08/24 20:00 03/10/24 21:09 Ferrous Sulfate 324 Mg Tablet. PO 03/08/25 19:59 324 mg Q48H SATISH Administration Heparin Sodium (Porcine) 5,000 unit 03/08/24 22:00 03/12/24 06:02 Heparin 5,000 Unit/Ml Vial SUBCUT 03/08/25 21:59 5,000 unit Q8HR SATISH Administration Magnesium Sulfate 2 gm in 50 mls @ 25 mls/hr 03/10/24 09:23 03/12/24 06:02 Magnesium Sulf 2gm-*Swfi* IV 03/10/25 09:22 25 mls/hr DAILY PRN Administration Hypomagnesemia Insulin Aspart 0 units 03/10/24 12:00 03/12/24 07:36 Insulin Aspart 300 Units/3 Ml Insuln.Pen SUBCUT 03/10/25 11:59 1 units TID.WM.HS SATISH Administration Protocol Ipratropium [place] 0.5 mg 03/08/24 20:00 03/12/24 06:05 Ipratropium [place] 0.5 Mg/2.5 Ml Vial.Neb INHALATION 03/08/25 19:59 0.5 mg QID.RESP SATISH Administration Isosorbide Mononitrate 30 mg 03/09/24 09:00 03/12/24 08:20 Isosorbide Mononitrate 24hr Er 30 Mg Tab.Er.24h PO 03/09/25 08:59 30 mg DAILY SATISH Administration Lorazepam 0.5 mg 03/11/24 12:01 03/11/24 12:46 Lorazepam 0.5 Mg Tablet PO 09/07/24 12:00 0.5 mg ONCE PRN Administration Pre-medication for MRI Nitroglycerin 0.4 mg 03/08/24 19:28 Nitroglycerin 0.4 Mg Tab.Subl SUBLINGUAL 03/08/25 19:27 Q5MIN.X3 PRN chest pain Pom Dulaglutide [ 0.75 mg 03/15/24 09:00 Trulicity] 0.75 Mg/0 SUBCUT 03/15/25 08:59 .5 Ml Pen Injector QWEEK [facility] Ondansetron HCl 4 mg 03/12/24 00:22 03/12/24 00:30 Ondansetron 4 Mg/2 Ml Vial IV-PUSH 03/12/25 00:21 4 mg Q6H PRN Administration Nausea And Vomiting Pantoprazole Sodium 40 mg 03/09/24 09:00 03/12/24 08:20 Pantoprazole 40 Mg Tablet. PO 03/09/25 08:59 40 mg DAILY SATISH Administration Sodium Chloride 0 ml 03/08/24 14:21 03/08/24 16:49 Sodium Chloride 0.9 % 10 Ml Syringe IV-PUSH 03/08/25 14:20 10 ml PRN PRN Administration Flush A&P - Gastroenterology Assessment/Plan (1) Hyperbilirubinemia: Plan -MRI does not show any concerning pancreatic lesions nor concerning biliary findings -It is likely he had a drug-induced cholestatic liver injury from a medication he was on during prior hospitalization -MRI did show some minor thickening of the stomach wall, he is on aspirin -Recommend to continue him on his home PPI dose, okay for 81 mg aspirin avoid other NSAIDs -He can follow-up in the outpatient setting with our nurse practitioner to discuss EGD for abnormal imaging Thank you for this consult, little further to add from a GI standpoint I will sign off at this time. Documented By: Mike Burleson MD 03/12/24925 Signed By: <Electronically signed by Mike Burleson MD> 03/12/24927 [facility] Work Phone: 1(840) 136-336710-07-2024 Progress note Author João Powell [facility] March 11, 2024 1:38pm Note Date/Time March 11, 2024 1: 35pm [facility] [address] [place] [address] Hospitalist Progress Note Signed Patient: Solomon Pickard SR MR#: [id number] : 1965 Acct:[id number] Age/Sex: 58 / M Adm Date: 4 Loc: Room: [address] [place] [address] Type: ADM IN Attending Dr: João Powell MD Copies to: ~ Date of Service: 03/11/2024 Subjective Subjective Narrative: Patient seen examined today. He is back to his baseline mental status. He is not complaining of abdominal pain, no nausea or vomiting or fever or chills. Liver ultrasound came back unremarkable. Exam Physical Exam Vital Signs: Temp Pulse Resp BP Pulse Ox O2 Del Method 98.4 F 90 18 150/89 H 99 Room Air 03/11/24 12:00 03/11/24 12:00 03/11/24 12:00 03/11/24 12:00 03/11/24 12:00 03/11/24 12:00 Narrative: Constitutional More calm more alert and oriented x3, not in acute distress HEENT Exam Head Exam: normocephalic Eye Exam: no EOMI, PERRLA ENT Exam: mucous membranes dry Neck Exam Neck Exam: no meningismus Respiratory Exam Respiratory Exam: CTA bilaterally and no respiratory distress, no wheezes or crackles Cardiovascular Exam Cardiovascular exam: tachycardia but regular rhythm, no murmurs, normal S1 and S2 Abdominal Exam GI/Abdominal Exam: no tenderness, no organomegaly, negative pollard's sign Extremities Exam Extremities Exam: normal capillary refill and amputation (Right lower extremity) Skin Exam Skin Exam: pallor and dry Neurological Exam Sitting up in chair, oriented x3, following commands, no focal motor or sensory deficits Objective Lab Results 03/11/24 05:56 03/11/24 05:56 Microbiology Results Microbiology 03/08/24 15:56 Blood - Right Antecubital Blood Culture - Preliminary No Growth 2 Days 03/08/24 16:02 Blood - Right Wrist Blood Culture - Preliminary No Growth 2 Days Meds Allergies and Active Meds Allergies acetaminophen [From Percocet] Allergy (Unknown, Verified 03/08/24 14:17) Vomiting oxycodone [From Percocet] Allergy (Unknown, Verified 03/08/24 14:17) Vomiting Penicillins Allergy (Unknown, Verified 03/08/24 14:17) Anaphylaxis latex Allergy (Verified 03/08/24 14:17) Unknown Reaction Active Meds: Active Medications Generic Name Dose Route Start Last Admin Trade Name Freq PRN Reason Stop Dose Admin Acetaminophen 650 mg 03/09/24 14:55 03/09/24 22:02 Acetaminophen 325 Mg Tablet PO 03/09/25 14:54 650 mg Q8H PRN Administration Pain Albuterol 2 puff 03/08/24 19:28 Albuterol Hfa 60 Puff/8 Gram Inhaler INHALATION 03/08/25 19:27 Q6HR PRN Shortness Of Breath Aspirin 81 mg 03/09/24 09:00 03/10/24 08:21 Aspirin 81 Mg Tab.Chew PO 03/09/25 08:59 81 mg DAILY SATISH Administration Atorvastatin Calcium 80 mg 03/09/24 09:00 03/10/24 08:21 Atorvastatin 80 Mg Tablet PO 03/09/25 08:59 80 mg DAILY SATISH Administration Duloxetine HCl 30 mg 03/09/24 22:00 03/10/24 21:09 Duloxetine 30 Mg Capsule. PO 03/09/25 21:59 30 mg QHS SATISH Administration Ferrous Sulfate 324 mg 03/08/24 20:00 03/10/24 21:09 Ferrous Sulfate 324 Mg Tablet. PO 03/08/25 19:59 324 mg Q48H SATISH Administration Heparin Sodium (Porcine) 5,000 unit 03/08/24 22:00 03/10/24 21:10 Heparin 5,000 Unit/Ml Vial SUBCUT 03/08/25 21:59 5,000 unit Q8HR SATISH Administration Magnesium Sulfate 2 gm in 50 mls @ 25 mls/hr 03/10/24 09:23 03/10/24 11:10 Magnesium Sulf 2gm-*Swfi* IV 03/10/25 09:22 25 mls/hr DAILY PRN Administration Hypomagnesemia Insulin Aspart 0 units 03/10/24 12:00 03/10/24 21:10 Insulin Aspart 300 Units/3 Ml Insuln.Pen SUBCUT 03/10/25 11:59 Not Given TID.WM.HS SATISH Protocol Ipratropium [place] 0.5 mg 03/08/24 20:00 03/11/24 10:15 Ipratropium [place] 0.5 Mg/2.5 Ml Vial.Neb INHALATION 03/08/25 19:59 0.5 mg QID.RESP SATISH Administration Isosorbide Mononitrate 30 mg 03/09/24 09:00 03/10/24 08:21 Isosorbide Mononitrate 24hr Er 30 Mg Tab.Er.24h PO 03/09/25 08:59 30 mg DAILY SATISH Administration Lorazepam 0.5 mg 03/11/24 12:01 03/11/24 12:46 Lorazepam 0.5 Mg Tablet PO 09/07/24 12:00 0.5 mg ONCE PRN Administration Pre-medication for MRI Nitroglycerin 0.4 mg 03/08/24 19:28 Nitroglycerin 0.4 Mg Tab.Subl SUBLINGUAL 03/08/25 19:27 Q5MIN.X3 PRN chest pain Pom Dulaglutide [ 0.75 mg 03/15/24 09:00 Trulicity] 0.75 Mg/0 SUBCUT 03/15/25 08:59 .5 Ml Pen Injector QWEEK SATISH Pantoprazole Sodium 40 mg 03/09/24 09:00 03/10/24 08:21 Pantoprazole 40 Mg Tablet.Dr PO 03/09/25 08:59 40 mg DAILY SATSIH Administration Sodium Chloride 0 ml 03/08/24 14:21 03/08/24 16:49 Sodium Chloride 0.9 % 10 Ml Syringe IV-PUSH 03/08/25 14:20 10 ml PRN PRN Administration Flush A&P - Hospitalist Assessment/Plan (1) Altered mental status: (2) Syncope: Plan Acute Delirium, Encephalopathy likely metabolic-Resolved CVA ruled out Post-concussion for possible Head trauma vs psychogenic Elevated LFTs, rule out obstructive jaundice ROEL in the setting of pre renal azotemia-Improving -Continue monitoring on medical floor telemetry -MR brain without contrast is negative -Neurology and psychiatry consulted, will follow recommend -ROEL improving with IV hydration -Continue IV hydration with NS 60 mL/h -GGT and ALP as well as bili is elevated, liver ultrasound negative -GI following, obtain MRI abdomen and MRCP -PT franciscaadebayo recjoe appreciated Spoke to his at bedside last afternoon. Will update family today. Time Spent With Patient (min): 45 Documented By: João Powell MD 03/11/241333 Signed By: <Electronically signed by João Powell MD> 03/11/241337 [facility] Work Phone: [phone]) 856-645710-06-2024 Progress note Author Luther Dozier [facility] March 10, 2024 11:31am Note Date/Time March 10, 2024 11 :31am [facility] [address] [place] [address] Neurology Progress Note Signed Patient: Solomon Pickard SR MR#: [id number] : 1965 Acct:[id number] Age/Sex: 58 / M Adm Date: 4 Loc: Room: [address] [place] [address] Type: ADM IN Attending Dr: João Powell MD Copies to: ~ Date of Service: 03/10/2024 Exam Physical Exam Vital Signs: Temp Pulse Resp BP Pulse Ox O2 Del Method 97.7 F 109 H 16 121/70 98 Room Air 03/10/24 08:30 03/10/24 10:09 03/10/24 10:09 03/10/24 08:30 03/10/24 08:30 03/10/24 08:30 Objective Vital Signs Vital Signs: Vital Signs - 24 hr 03/09/24 12:00 03/09/24 13:54 03/09/24 16:00 Temperature 98.4 F Pulse Rate 104 H 125 H 112 H Respiratory Rate 18 18 18 Blood Pressure 150/90 H 110/68 02 Sat by Pulse Oximetry 100 99 Oxygen Delivery Method Room Air Room Air 03/09/24 16:00 03/09/24 18:03 03/09/24 20:00 Temperature Pulse Rate 104 H Respiratory Rate 18 Blood Pressure 02 Sat by Pulse Oximetry Oxygen Delivery Method Room Air Room Air 03/09/24 20:00 03/10/24 00:00 03/10/24 00:00 Temperature 98.1 F 98.8 F Pulse Rate 112 H 114 H Respiratory Rate 16 16 Blood Pressure 124/73 124/75 02 Sat by Pulse Oximetry 100 100 Oxygen Delivery Method Room Air Room Air Room Air 03/10/24 03:32 03/10/24 03:33 03/10/24 05:25 Temperature 98.9 F Pulse Rate 107 H 107 H Respiratory Rate 16 16 Blood Pressure 114/68 02 Sat by Pulse Oximetry 99 Oxygen Delivery Method Room Air Room Air 03/10/24 08:30 03/10/24 10:09 Temperature 97.7 F Pulse Rate 96 109 H Respiratory Rate 18 16 Blood Pressure 121/70 02 Sat by Pulse Oximetry 98 Oxygen Delivery Method Room Air Labs 03/10/24 06:49 03/10/24 06:49 Therapy Recommendations Therapy Recommendations: PT Recommendations PT Recommended Discharge Penitentiary Facility,Inpatient Rehab Unit Location PT Recommended Services at Physical Therapy Discharge ST Recommendations Level of Supervision 1:1 Feeding Supervision Liquid Consistency Thin Liquids Recommendation Solid Consistency Dental Soft Solids Recommendations Meat Consistency Chopped Meats,Extra Bowl of Gravy Recommendations Medication Administration Whole Pills,Give Pills in Applesauce,Give Pills with Water Dysphagia Swallow Precautions/ Sitting Upright (90 deg),Double Swallow,Small Strategies Bites/Sips,Alternate Liquids/Solids,Check for Pocketing Assessment/Plan (1) Altered mental status: Qualifiers: Altered mental status type: unspecified Qualified Code(s): R41.82 - Altered mental status, unspecified Plan CONSULT REASON: Sudden AMS, stroke ruled out INTERIM: No overnight events. Mental status improved late yesterday. This morning he issitting in a chair. Says he does not know what happened yesterday. He is feeling more like his normal self. Not having the significant pains all over like he was yesterday. Nothing else to add to review of systems. His EEG was unremarkable. EXAMINATION: In no distress. Sitting in a chair. Right below the knee amputation, stapled. Remaining limbs seem well-perfused. No significant edema. Normal work of breathing. He is alert. Oriented to [facility], March. Speech is fluent and nondysarthric. Pupils are equal. Full extraocular movements. No nystagmus. Facial sensation is normal. Hearing is normal. Facial strength is normal. Tongue is midline. Aside from the distal right lower extremity that is nonexistent and cannot be tested, muscle bulk, tone, and strength are likely normal. No significant tremors at the time of my encounter. Reflexes trace throughout. Light touch is remains intact. No limb ataxia. DATA REVIEW: -BUN 19, creatinine 1.8, estimated GFR 43 -Hemoglobin 8.9, MCV 70.7, platelets 265 -CT head nonacute -Routine EEG March 04, 2024 unremarkable -Carotid ultrasounds unremarkable -MRI of brain without contrast March 04, 2024 nonacute -MRI brain without contrast March 08, 2024 nonacute -MRA of head not concerning -Transthoracic echocardiogram is fine -Routine EEG March 09, 2024 unremarkable ASSESSMENT: His altered mental status has resolved. He seemed to have total disorientation that was felt to not be neurological in origin. PLAN: No other recommendations at this time. Documented By: Luther Dozier DO 03/10/24 1126 Signed By: <Electronically signed by Luther Dozier DO> 03/10/24 1131 [facility] Work Phone: 1(771) 869-278410-06-2024 Consult note Author Mike Burleson [facility] March 10, 2024 11:29am Note Date/Time March 10, 2024 11 :29am [facility] [address] [place] [address] Gastroenterology Consult Note Signed Patient: Solomon Pickard SR MR#: [id number] : 1965 Acct:[id number] Age/Sex: 58 / M Adm Date: 4 Loc: Room: [address] [place] [address] Type: ADM IN Attending Dr: João Powell MD Copies to: DO Mike Guzman MD Mohamad Akil, MD~ HPI Data of Consult Date of Consultation: 03/10/24 Requesting Physician: João Powell MD Consult Narrative History of present illness: Mr. Pickard is a 58 year old male who was admitted with altered mental status. Who I am consulted for elevated liver enzymes. The patient is currently denyingany significant right upper quadrant pain. Previous liver studies were normal and on his recent admission his bili has risen to 2.2, elevated GGT, mildly elevated AST and ALT less than 3 times the upper limit of normal. Significantlyelevated alk phos to 426. Denies prior history of liver disease. Denies prior history of gallstones or biliary disease. States he does have a family history of gallbladder disease on maternal side with multiple people needing her gallbladder out in the past. cc:: CC: João Powell MD Review of Systems Constitutional Constitutional: Denies chills, Denies fever(s) and Denies headache(s) Eyes Eyes: Denies blurry vision and Denies change in vision ENT Ears, Nose, Mouth, and Throat: Denies headache(s) and Denies neck pain Cardiovascular Cardiovascular: Denies chest pain and Denies palpitations Respiratory Respiratory: Denies cough and Denies wheezing Gastrointestinal Gastrointestinal: Reports other (per HPI) Genitourinary Genitourinary: Denies urinary urgency Musculoskeletal Musculoskeletal: Denies neck pain Integumentary/Breasts Skin/Breast: Denies pruritus Neurologic Neurologic: Denies headache(s) Psychiatric Psychiatric: Denies anxiety and Denies mood swings Endocrine Endocrine: Denies palpitations Hematologic/Lymphatic Hematologic/Lymphatic: Denies easy bleeding and Denies easy bruising Allergic/Immunologic Allergic/Immunologic: Denies wheezing [facility] Medical History Vitamin D deficiency 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 Restless legs syndrome Peripheral vascular disease Peripheral edema Memory changes Lung nodule Insulin long-term use Insomnia Hypotestosteronemia Hypertensive chronic kidney disease with stage 1 through stage 4 chronic kidney disease, or unspecified chronic kidney disease Headache Gout GERD (gastroesophageal reflux disease) Erectile dysfunction Contracture of hand Claudication of both lower extremities Cigarette nicotine dependence with nicotine-induced disorder Bladder mass Atrial fibrillation Atherosclerotic heart disease of [place] coronary artery with unspecified angina pectoris Anxiety Hx of exercise stress test Family history of premature CAD Reports mother had quadruple bypass at age of 45 Crescendo angina Leg edema Dyslipidemia Chest pain in adult Myocardial infarction mild Fibromyalgia Chronic back pain Sleep apnea Neuropathy Renal failure Cataract Peripheral artery disease Heart disease Hyperlipidemia Diabetes Hypertension Surgical History History of artificial lens replacement Hx of cardiac cath History of carpal tunnel release of both wrists History of angioplasty left lower extremity 2015,2018 History of colonoscopy 01/25/2019 S/P repair of hydrocele H/O arthroscopy of left knee History of carpal tunnel surgery of right wrist History of carpal tunnel surgery of left wrist Hx of appendectomy H/O heart artery stent 07/26/2015 Family History Mother Heart disease PAD (peripheral artery disease) Father Grandparent Legacy FamHx Relation: Maternal Grand Father Grandparent Legacy FamHx Relation: Maternal Grand Mother Mother Heart disease Social History Smoking Status: Unknown if ever smoked Tobacco Type: cigarettes Substance Use Type: None Social History Comments: [facility] Meds Medications and Allergies Allergies acetaminophen [From Percocet] Allergy (Unknown, Verified 03/08/24 14:17) Vomiting oxycodone [From Percocet] Allergy (Unknown, Verified 03/08/24 14:17) Vomiting Penicillins Allergy (Unknown, Verified 03/08/24 14:17) Anaphylaxis latex Allergy (Verified 03/08/24 14:17) Unknown Reaction Home Medications aspirin 81 mg chewable tablet 81 mg PO DAILY 04/01/18 [History Confirmed 03/08/24] albuterol sulfate 90 mcg/actuation aerosol inhaler (ProAir HFA) 2 puff inhalation Q6HR PRN Shortness Of Breath 06/28/19 [History Confirmed 03/08/24] atorvastatin 80 mg tablet 80 mg PO DAILY 08/08/19 [History Confirmed 03/08/24] dulaglutide 0.75 mg/0.5 mL subcutaneous pen injector (Trulicity) 0.75 mg subcut QWEEK 07/12/23 [History Confirmed 03/08/24] empagliflozin 10 mg tablet (Jardiance) 10 mg PO DAILY 07/12/23 [History Confirmed 03/08/24] nitroglycerin 0.4 mg sublingual tablet (Nitrostat) 0.4 mg sublingual Q5-15M PRN chest pain 07/12/23 [History Confirmed 03/08/24] rimegepant 75 mg disintegrating tablet (Nurtec ODT) 75 mg PO DAILY PRN migraine headache 07/12/23 [History Confirmed 03/08/24] valsartan 160 mg-hydrochlorothiazide 12.5 mg tablet 1 tab PO DAILY 07/12/23 [History Confirmed 03/08/24] flash glucose scanning reader (CrescentratingStyle Pedro 2 [place]) #1 ea 12/28/23 [Rx Confirmed 03/08/24] flash glucose sensor (FreeStyle Pedro 2 Sensor kit) #1 ea 12/28/23 [Rx Confirmed 03/08/24] metformin 1,000 mg tablet 1,000 mg PO BID 90 days #180 tabs 01/03/24 [Rx Confirmed 03/08/24] ropinirole 1 mg tablet 1 mg PO TID #240 tabs 01/24/24 [Rx Confirmed 03/08/24] ipratropium bromide 17 mcg/actuation HFA aerosol inhaler (Atrovent HFA) 2 inh inhalation TID 03/03/24 [History Confirmed 03/08/24] tiotropium bromide 18 mcg capsule with inhalation device (Spiriva with HandiHaler) 1 cap inhalation DAILY 03/03/24 [History Confirmed 03/08/24] ferrous sulfate 325 mg (65 mg iron) tablet 325 mg PO Q2D 30 days #15 tabs 03/06/24 [Rx Confirmed 03/08/24] amitriptyline 25 mg tablet 25 mg PO DAILY 03/08/24 [History Confirmed 03/08/24] clopidogrel 75 mg tablet 75 mg PO DAILY 03/08/24 [History Confirmed 03/08/24] isosorbide mononitrate 30 mg tablet,extended release 24 hr 30 mg PO DAILY 03/08/24 [History Confirmed 03/08/24] metoprolol tartrate 100 mg tablet 50 mg PO BID 03/08/24 [History Confirmed 03/08/24] omeprazole 40 mg capsule,delayed release 40 mg PO DAILY 03/08/24 [History Confirmed 03/08/24] pregabalin 200 mg capsule (Lyrica) 200 mg PO TID 03/08/24 [History Confirmed 03/08/24] ropinirole 1 mg tablet 1 mg PO TID 03/08/24 [History Confirmed 03/08/24] sildenafil 100 mg tablet (Viagra) 100 mg PO DAILY PRN sexual activity 03/08/24 [History Confirmed 03/08/24] tamsulosin 0.4 mg capsule (Flomax) 0.4 mg PO BID 03/08/24 [History Confirmed 03/08/24] tizanidine 4 mg capsule 4 mg PO QHS 03/08/24 [History Confirmed 03/08/24] Exam Physical Exam Vital Signs: Temp Pulse Resp BP Pulse Ox O2 Del Method 97.7 F 109 H 16 121/70 98 Room Air 03/10/24 08:30 03/10/24 10:09 03/10/24 10:09 03/10/24 08:30 03/10/24 08:30 03/10/24 08:30 Results - Gastroenterology Labs Labs: Laboratory Results - last 24 hr 03/09/24 03/09/24 03/10/24 11:28 22:42 06:49 Corrected WBC 13.7 H Uncorrected WBC Count 13.7 H RBC 3.62 L Hgb 8.4 L Hct 25.8 L MCV 71.2 L MCH 23.1 L MCHC 32.5 RDW 23.4 H Plt Count 205 MPV 8.9 Neut % (Auto) 83.4 Lymph % (Auto) 4.9 Wells % (Auto) 10.6 Eos % (Auto) 0.8 Baso % (Auto) 0.3 Nucleat RBC Rel Count 0.2 Neut # (Auto) 11.4 H Lymph # (Auto) 0.7 L Wells # (Auto) 1.5 H Eos # (Auto) 0.1 Baso # (Auto) 0.0 PHA Creatinine Clear 47.38 Sodium 135 L D Potassium 3.3 L Chloride 102 Carbon Dioxide 21.8 Anion Gap 14.5 BUN 16 Creatinine 1.81 H Est GFR (CKD-EPI) 42.806 Glucose 141 H POC Glucose 128 386 POC Glucose Comment Glu2: cleaned meter Calcium 8.3 L Phosphorus 3.1 Magnesium 1.4 L Total Bilirubin 2.2 H GGT 176 H AST 92 H ALT 78 H Alkaline Phosphatase 426 H Total Protein 6.7 Albumin 3.4 L Globulin 3.3 Albumin/Globulin Ratio 1.0 03/10/24 06:52 Corrected WBC Uncorrected WBC Count RBC Hgb Hct MCV MCH MCHC RDW Plt Count MPV Neut % (Auto) Lymph % (Auto) Wells % (Auto) Eos % (Auto) Baso % (Auto) Nucleat RBC Rel Count Neut # (Auto) Lymph # (Auto) Wells # (Auto) Eos # (Auto) Baso # (Auto) PHA Creatinine Clear Sodium Potassium Chloride Carbon Dioxide Anion Gap BUN Creatinine Est GFR (CKD-EPI) Glucose POC Glucose 174 POC Glucose Comment Calcium Phosphorus Magnesium Total Bilirubin GGT AST ALT Alkaline Phosphatase Total Protein Albumin Globulin Albumin/Globulin Ratio A&P - Gastroenterology Assessment/Plan (1) Altered mental status: Qualifiers: Altered mental status type: unspecified Qualified Code(s): R41.82 - Altered mental status, unspecified (2) GERD (gastroesophageal reflux disease): (3) Hyperbilirubinemia: Plan -With his recent hospitalization and multiple medications it is possible that hehad a minor cholestatic drug-induced liver injury, however given his family history I would recommend we rule out obstruction -I would recommend an MRI of the abdomen with contrast with a focus to the pancreas to rule out small pancreatic lesions and adding an MRCP as well -If this is positive then he would need transferred for EUS/ERCP -Given his age recommend checking a hep C antibody as well Thank you for this consult, we will follow Documented By: Mike Burleson MD 03/10/24 1125 Signed By: <Electronically signed by Mike Burleson MD> 03/10/24 1127 [facility] Work Phone: 1(538) 628-901310-06-2024 Progress note Author João Powell [facility] March 10, 2024 10:14am Note Date/Time March 10, 2024 10 :14am [facility] [address] [place] [address] Hospitalist Progress Note Signed Patient: Solomon Pickard SR MR#: [id number] : 1965 Acct:[id number] Age/Sex: 58 / M Adm Date: 4 Loc: 3T Room: [address] [place] [address] Type: ADM IN Attending Dr: João Powell MD Copies to: ~ Date of Service: 03/10/2024 Subjective Subjective Narrative: Patient seen examined today. His mental status is improved since last evening. He is oriented x 3 and he knows his family and follows commands. He was sittingin chair conversant and pleasant today. Labs reviewed today, remarkable for elevated LFTs. He does not complain of abdominal pain or nausea or vomiting. No issues overnight. Not in acute distress. Exam Physical Exam Vital Signs: Temp Pulse Resp BP Pulse Ox O2 Del Method 97.7 F 96 18 121/70 98 Room Air 03/10/24 08:30 03/10/24 08:30 03/10/24 08:30 03/10/24 08:30 03/10/24 08:30 03/10/24 08:30 Narrative: Constitutional More calm more alert and oriented x3, not in acute distress HEENT Exam Head Exam: normocephalic Eye Exam: no EOMI, PERRLA ENT Exam: mucous membranes dry Neck Exam Neck Exam: no meningismus Respiratory Exam Respiratory Exam: CTA bilaterally and no respiratory distress, no wheezes or crackles Cardiovascular Exam Cardiovascular exam: tachycardia but regular rhythm, no murmurs, normal S1 and S2 Abdominal Exam GI/Abdominal Exam: no tenderness, no organomegaly, negative pollard's sign Extremities Exam Extremities Exam: normal capillary refill and amputation (Right lower extremity) Skin Exam Skin Exam: pallor and dry Neurological Exam Sitting up in chair, oriented x3, following commands, no focal motor or sensory deficits Objective Lab Results 03/10/24 06:49 03/10/24 06:49 Microbiology Results Microbiology 03/08/24 16:02 Blood - Right Wrist Blood Culture - Preliminary No Growth 1 Day 03/08/24 15:56 Blood - Right Antecubital Blood Culture - Preliminary No Growth 1 Day Meds Allergies and Active Meds Allergies acetaminophen [From Percocet] Allergy (Unknown, Verified 03/08/24 14:17) Vomiting oxycodone [From Percocet] Allergy (Unknown, Verified 03/08/24 14:17) Vomiting Penicillins Allergy (Unknown, Verified 03/08/24 14:17) Anaphylaxis latex Allergy (Verified 03/08/24 14:17) Unknown Reaction Active Meds: Active Medications Generic Name Dose Route Start Last Admin Trade Name Freq PRN Reason Stop Dose Admin Acetaminophen 650 mg 03/09/24 14:55 03/09/24 22:02 Acetaminophen 325 Mg Tablet PO 03/09/25 14:54 650 mg Q8H PRN Administration Pain Albuterol 2 puff 03/08/24 19:28 Albuterol Hfa 60 Puff/8 Gram Inhaler INHALATION 03/08/25 19:27 Q6HR PRN Shortness Of Breath Aspirin 81 mg 03/09/24 09:00 03/10/24 08:21 Aspirin 81 Mg Tab.Chew PO 03/09/25 08:59 81 mg DAILY SATISH Administration Atorvastatin Calcium 80 mg 03/09/24 09:00 03/10/24 08:21 Atorvastatin 80 Mg Tablet PO 03/09/25 08:59 80 mg DAILY SATISH Administration Duloxetine HCl 30 mg 03/09/24 22:00 03/09/24 22:01 Duloxetine 30 Mg Capsule. PO 03/09/25 21:59 30 mg QHS SATISH Administration Ferrous Sulfate 324 mg 03/08/24 20:00 03/08/24 22:52 Ferrous Sulfate 324 Mg Tablet. PO 03/08/25 19:59 324 mg Q48H SATISH Administration Heparin Sodium (Porcine) 5,000 unit 03/08/24 22:00 03/10/24 05:39 Heparin 5,000 Unit/Ml Vial SUBCUT 03/08/25 21:59 5,000 unit Q8HR SATISH Administration Magnesium Sulfate 2 gm in 50 mls @ 25 mls/hr 03/10/24 09:23 Magnesium Sulf 2gm-*Swfi* IV 03/10/25 09:22 DAILY PRN Hypomagnesemia Ipratropium [place] 0.5 mg 03/08/24 20:00 03/10/24 05:25 Ipratropium [place] 0.5 Mg/2.5 Ml Vial.Neb INHALATION 03/08/25 19:59 0.5 mg QID.RESP SATISH Administration Isosorbide Mononitrate 30 mg 03/09/24 09:00 03/10/24 08:21 Isosorbide Mononitrate 24hr Er 30 Mg Tab.Er.24h PO 03/09/25 08:59 30 mg DAILY SATISH Administration Nitroglycerin 0.4 mg 03/08/24 19:28 Nitroglycerin 0.4 Mg Tab.Subl SUBLINGUAL 03/08/25 19:27 Q5MIN.X3 PRN chest pain Pom Dulaglutide [ 0.75 mg 03/15/24 09:00 Trulicity] 0.75 Mg/0 SUBCUT 03/15/25 08:59 .5 Ml Pen Injector QWEEK SATISH Pantoprazole Sodium 40 mg 03/09/24 09:00 03/10/24 08:21 Pantoprazole 40 Mg Tablet. PO 03/09/25 08:59 40 mg DAILY SATISH Administration Sodium Chloride 0 ml 03/08/24 14:21 03/08/24 16:49 Sodium Chloride 0.9 % 10 Ml Syringe IV-PUSH 03/08/25 14:20 10 ml PRN PRN Administration Flush A&P - Hospitalist Assessment/Plan (1) Altered mental status: (2) Syncope: Plan Acute Delirium, Encephalopathy likely metabolic-Resolved CVA ruled out Post-concussion for possible Head trauma vs psychogenic Elevated LFTs, rule out obstructive jaundice ROEL in the setting of pre renal azotemia -Continue monitoring on medical floor telemetry -MR brain without contrast is negative -Neurology and psychiatry consulted, will follow recommend -ROEL improving with IV hydration -Continue IV hydration with NS 60 mL/h -GGT and ALP as well as bili is elevated, obtain Liver ultrasound and GI consult -Reviewed pt's medications, could not find agents that may cause cholestasis Spoke to his at bedside last afternoon. Will update family today. Time Spent With Patient (min): 45 Documented By: João Powell MD 03/10/24 1008 Signed By: <Electronically signed by João Powell MD> 03/10/24 1014 [facility] Work Phone: [phone]) 478-332710-05-2024 Progress note Author João Powell [facility] March 09, 2024 11:32am Note Date/Time March 09, 2024 10 :57am [facility] [address] [place] [address] Hospitalist Progress Note Signed Patient: Solomon Pickard SR MR#: [id number] : 1965 Acct:[id number] Age/Sex: 58 / M Adm Date: 4 Loc: 3T Room: [address] [place] [address] Type: ADM IN Attending Dr: João Powell MD Copies to: ~ Date of Service: 03/09/2024 Subjective Subjective Narrative: Patient seen and examined bedside. He is still altered. Laying in bed. When he saw me, he stated that he remembers me from before and he fell twice however patient has very nonspecific symptoms of intermittently following commands and intermittently looking at me and then avoiding eye contact. Urology consulted. MRI brain without contrast was negative. Exam Physical Exam Vital Signs: Temp Pulse Resp BP Pulse Ox O2 Del Method 97.6 F 99 20 155/96 H 99 Room Air 03/09/24 06:00 03/09/24 09:14 03/09/24 09:14 03/09/24 06:00 03/09/24 06:00 03/09/24 06:00 Narrative: Constitutional Ill appearing, confused, pt is lying in bed shaking, starring at the ceiling butresponsive. Apprehensive HEENT Exam Head Exam: normocephalic Eye Exam: no EOMI, pupils were reactive but more sluggish on the right ENT Exam: mucous membranes dry Neck Exam Neck Exam: no meningismus Respiratory Exam Respiratory Exam: CTA bilaterally and no respiratory distress, no wheezes or crackles Cardiovascular Exam Cardiovascular exam: tachycardia but regular rhythm, no murmurs, normal S1 and S2 Abdominal Exam GI/Abdominal Exam: no tenderness Extremities Exam Extremities Exam: normal capillary refill and amputation (Right lower extremity) Skin Exam Skin Exam: pallor and dry Neurological Exam Patient is awake, lying in bed, has some tremors however nonspecific involving bilateral upper and his left lower extremity, patient is able to remember my face and states that he fell twice, when asked about what he knows his name he says no, and he is not oriented to time and place, stating at the ceiling sometimes and sometimes making eye contact with me, fixating on some questions when asked repeating some of my words. Reflexes were not significant, and pupils were reactive bilaterally. Objective Lab Results 03/09/24 06:22 03/09/24 06:22 Microbiology Results Microbiology 03/08/24 16:50 Nasopharyngeal Respiratory Panel (PCR) - Final Meds Allergies and Active Meds Allergies acetaminophen [From Percocet] Allergy (Unknown, Verified 03/08/24 14:17) Vomiting oxycodone [From Percocet] Allergy (Unknown, Verified 03/08/24 14:17) Vomiting Penicillins Allergy (Unknown, Verified 03/08/24 14:17) Anaphylaxis latex Allergy (Verified 03/08/24 14:17) Unknown Reaction Active Meds: Active Medications Generic Name Dose Route Start Last Admin Trade Name Freq PRN Reason Stop Dose Admin Albuterol 2 puff 03/08/24 19:28 Albuterol Hfa 60 Puff/8 Gram Inhaler INHALATION 03/08/25 19:27 Q6HR PRN Shortness Of Breath Aspirin 81 mg 03/09/24 09:00 Aspirin 81 Mg Tab.Chew PO 03/09/25 08:59 DAILY [facility] Atorvastatin Calcium 80 mg 03/09/24 09:00 Atorvastatin 80 Mg Tablet PO 03/09/25 08:59 DAILY [facility] Ferrous Sulfate 324 mg 03/08/24 20:00 03/08/24 22:52 Ferrous Sulfate 324 Mg Tablet. PO 03/08/25 19:59 324 mg Q48H SATISH Administration Heparin Sodium (Porcine) 5,000 unit 03/08/24 22:00 03/09/24 05:31 Heparin 5,000 Unit/Ml Vial SUBCUT 03/08/25 21:59 5,000 unit Q8HR SATISH Administration Ipratropium [place] 0.5 mg 03/08/24 20:00 03/09/24 09:14 Ipratropium [place] 0.5 Mg/2.5 Ml Vial.Neb INHALATION 03/08/25 19:59 0.5 mg QID.RESP SATISH Administration Isosorbide Mononitrate 30 mg 03/09/24 09:00 Isosorbide Mononitrate 24hr Er 30 Mg Tab.Er.24h PO 03/09/25 08:59 DAILY SATISH Nitroglycerin 0.4 mg 03/08/24 19:28 Nitroglycerin 0.4 Mg Tab.Subl SUBLINGUAL 03/08/25 19:27 Q5MIN.X3 PRN chest pain Pom Dulaglutide [ 0.75 mg 03/15/24 09:00 Trulicity] 0.75 Mg/0 SUBCUT 03/15/25 08:59 .5 Ml Pen Injector QWEEK [facility] Pantoprazole Sodium 40 mg 03/09/24 09:00 Pantoprazole 40 Mg Tablet. PO 03/09/25 08:59 DAILY [facility] Sodium Chloride 0 ml 03/08/24 14:21 03/08/24 16:49 Sodium Chloride 0.9 % 10 Ml Syringe IV-PUSH 03/08/25 14:20 10 ml PRN PRN Administration Flush A&P - Hospitalist Assessment/Plan (1) Altered mental status: (2) Syncope: Plan Acute Delirium, Encephalopathy likely metabolic CVA is less likely Post-concussion for possible Head trauma? Possible Psychiatric Conversion disorder -Continue monitoring on medical floor telemetry -MR brain without contrast is negative -Neurology and psychiatry consulted, will follow recommend -ROEL improving with IV hydration -Continue IV hydration with NS 60 mL/h for the next 24 hours as well as recheck his kidney function -Continue to closely monitor pt's neurologic status Will discuss plan of plan with the patient's and daughter today I will answer the question addressed their concerns once I speak to them today Time Spent With Patient (min): 45 Documented By: João Powell MD 03/09/24 1051 Signed By: <Electronically signed by João Powell MD> 03/09/24 1132 [facility] Work Phone: [phone]) 328-465310-05-2024 Consult note Author Job James [facility] March 09, 2024 11:12am Note Date/Time March 09, 2024 11 :10am [facility] [address] [place] [address] Psychiatry Consult Note Signed Patient: Solomon Pickard SR MR#: [id number] : 1965 Acct:[id number] Age/Sex: 58 / M Adm Date: 4 Loc: Room: [address] [place] [address] Type : ADM IN Attending Dr: João Powell MD Copies to: MD Jenaro Oates DO Mohamad Akil, MD~ HPI Consult Date: 03/09/24 Requesting Physician: João Powell MD Primary Care Provider: Jenaro Lynch DO Consult Narrative HPI: Mr. Pickard is a 58 year old male who presented due to concern for syncope event recent fall Upon assessment, patient reported that he has a hard time remembering things. He reported that he fell twice at home and is not sure what happened. He statedthat he thinks that he has Alzheimer's disease. He reported having chronic depression and denied any suicidal thoughts. He reported some vague homicidal thoughts towards people that hurt him but does not identify any specific target. He denied any current hallucinations. His main focus right now is his ability to remember things. He does complain of having pain pretty much everywhere in his body including his back, tailbone, head. He does request to have some pain medication to help manage this. He is not oriented to time or person. Mental Status Exam: Appearance: grossly normal Mental Status: abnormal Mood: dysthymic mood Affect: Dysphoric affect Speech and Movement: speech normal, movement normal Attitude: cooperative Thought Process: normal Thought Content: no hallucinations, no suicidality, vague homicidal thoughts no target and seems more like retaliation Insight: fair Judgment: fair [facility] Medical History Vitamin D deficiency 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 Restless legs syndrome Peripheral vascular disease Peripheral edema Memory changes Lung nodule Insulin long-term use Insomnia Hypotestosteronemia Hypertensive chronic kidney disease with stage 1 through stage 4 chronic kidney disease, or unspecified chronic kidney disease Headache Gout GERD (gastroesophageal reflux disease) Erectile dysfunction Contracture of hand Claudication of both lower extremities Cigarette nicotine dependence with nicotine-induced disorder Bladder mass Atrial fibrillation Atherosclerotic heart disease of [place] coronary artery with unspecified angina pectoris Anxiety Hx of exercise stress test Family history of premature CAD Reports mother had quadruple bypass at age of 45 Crescendo angina Leg edema Dyslipidemia Chest pain in adult Myocardial infarction mild Fibromyalgia Chronic back pain Sleep apnea Neuropathy Renal failure Cataract Peripheral artery disease Heart disease Hyperlipidemia Diabetes Hypertension Surgical History History of artificial lens replacement Hx of cardiac cath History of carpal tunnel release of both wrists History of angioplasty left lower extremity 2015,2018 History of colonoscopy 01/25/2019 S/P repair of hydrocele H/O arthroscopy of left knee History of carpal tunnel surgery of right wrist History of carpal tunnel surgery of left wrist Hx of appendectomy H/O heart artery stent 07/26/2015 Family History Mother Heart disease PAD (peripheral artery disease) Father Grandparent Legacy FamHx Relation: Maternal Grand Father Grandparent Legacy FamHx Relation: Maternal Grand Mother Mother Heart disease Social History Smoking Status: Unknown if ever smoked Tobacco Type: cigarettes Substance Use Type: None Social History Comments: [facility] Meds Medications and Allergies Allergies acetaminophen [From Percocet] Allergy (Unknown, Verified 03/08/24 14:17) Vomiting oxycodone [From Percocet] Allergy (Unknown, Verified 03/08/24 14:17) Vomiting Penicillins Allergy (Unknown, Verified 03/08/24 14:17) Anaphylaxis latex Allergy (Verified 03/08/24 14:17) Unknown Reaction Home Medications aspirin 81 mg chewable tablet 81 mg PO DAILY 04/01/18 [History Confirmed 03/08/24] albuterol sulfate 90 mcg/actuation aerosol inhaler (ProAir HFA) 2 puff inhalation Q6HR PRN Shortness Of Breath 06/28/19 [History Confirmed 03/08/24] atorvastatin 80 mg tablet 80 mg PO DAILY 08/08/19 [History Confirmed 03/08/24] dulaglutide 0.75 mg/0.5 mL subcutaneous pen injector (Trulicity) 0.75 mg subcut QWEEK 07/12/23 [History Confirmed 03/08/24] empagliflozin 10 mg tablet (Jardiance) 10 mg PO DAILY 07/12/23 [History Confirmed 03/08/24] nitroglycerin 0.4 mg sublingual tablet (Nitrostat) 0.4 mg sublingual Q5-15M PRN chest pain 07/12/23 [History Confirmed 03/08/24] rimegepant 75 mg disintegrating tablet (Nurtec ODT) 75 mg PO DAILY PRN migraine headache 07/12/23 [History Confirmed 03/08/24] valsartan 160 mg-hydrochlorothiazide 12.5 mg tablet 1 tab PO DAILY 07/12/23 [History Confirmed 03/08/24] flash glucose scanning reader (CrescentratingStyle [place] 2 [place]) #1 ea 12/28/23 [Rx Confirmed 03/08/24] flash glucose sensor (FreeStyle Pedro 2 Sensor kit) #1 ea 12/28/23 [Rx Confirmed 03/08/24] metformin 1,000 mg tablet 1,000 mg PO BID 90 days #180 tabs 01/03/24 [Rx Confirmed 03/08/24] ropinirole 1 mg tablet 1 mg PO TID #240 tabs 01/24/24 [Rx Confirmed 03/08/24] ipratropium bromide 17 mcg/actuation HFA aerosol inhaler (Atrovent HFA) 2 inh inhalation TID 03/03/24 [History Confirmed 03/08/24] tiotropium bromide 18 mcg capsule with inhalation device (Spiriva with HandiHaler) 1 cap inhalation DAILY 03/03/24 [History Confirmed 03/08/24] ferrous sulfate 325 mg (65 mg iron) tablet 325 mg PO Q2D 30 days #15 tabs 03/06/24 [Rx Confirmed 03/08/24] amitriptyline 25 mg tablet 25 mg PO DAILY 03/08/24 [History Confirmed 03/08/24] clopidogrel 75 mg tablet 75 mg PO DAILY 03/08/24 [History Confirmed 03/08/24] isosorbide mononitrate 30 mg tablet,extended release 24 hr 30 mg PO DAILY 03/08/24 [History Confirmed 03/08/24] metoprolol tartrate 100 mg tablet 50 mg PO BID 03/08/24 [History Confirmed 03/08/24] omeprazole 40 mg capsule,delayed release 40 mg PO DAILY 03/08/24 [History Confirmed 03/08/24] pregabalin 200 mg capsule (Lyrica) 200 mg PO TID 03/08/24 [History Confirmed 03/08/24] ropinirole 1 mg tablet 1 mg PO TID 03/08/24 [History Confirmed 03/08/24] sildenafil 100 mg tablet (Viagra) 100 mg PO DAILY PRN sexual activity 03/08/24 [History Confirmed 03/08/24] tamsulosin 0.4 mg capsule (Flomax) 0.4 mg PO BID 03/08/24 [History Confirmed 03/08/24] tizanidine 4 mg capsule 4 mg PO QHS 03/08/24 [History Confirmed 03/08/24] Exam Physical Exam Vital Signs: Temp Pulse Resp BP Pulse Ox O2 Del Method 98.4 F 99 20 147/84 H 100 Room Air 03/09/24 08:00 03/09/24 09:14 03/09/24 09:14 03/09/24 08:00 03/09/24 08:00 03/09/24 08:00 Results - Psychiatry Labs 03/09/24 06:22 03/09/24 06:22 Psychiatry Labs: 03/08/24 03/08/24 03/09/24 14:15 16:11 06:22 RBC 4.54 3.93 Hgb 10.3 L 8.9 L Hct 32.2 L 27.8 L MCV 71.0 L 70.7 L MCH 22.7 L 22.7 L MCHC 32.0 L 32.1 L RDW 22.0 H 21.9 H Plt Count 286 265 MPV 8.2 8.7 Sodium 141 142 Potassium 4.1 3.7 Chloride 106 110 H Carbon Dioxide 25.0 20.8 L Anion Gap 14.1 14.9 BUN 19 19 Creatinine 1.91 H 1.80 H Calcium 9.6 9.0 Total Bilirubin 0.4 0.5 AST 14 14 ALT 13 10 Alkaline Phosphatase 116 H 110 H Total Protein 7.7 7.0 Albumin 3.8 3.5 Urine Color Light-yellow Urine Appearance Clear Urine pH 5.0 Ur Specific [place] 1.013 Urine Protein Negative Urine Glucose (UA) >=1000 H Urine Ketones Negative Urine Occult Blood Negative Urine Nitrite Negative Ur Leukocyte Esterase Negative Microbiology Microbiology: Microbiology - Results from entire visit 03/08/24 16:50 Nasopharyngeal Respiratory Panel (PCR) - Final Assessment/Plan (1) Altered mental status: Plan: Encephalopathy is ongoing and patient is disoriented. Hopefully this will improve as medical issues are addressed Does report some depression and Can use Cymbalta 30 mg daily for depression and pain issues, okay to hold amitriptyline Can rule out NMDA Qualifiers: Altered mental status type: unspecified Qualified Code(s): R41.82 - Altered mental status, unspecified Documented By: Job James MD 03/09/24 1103 Signed By: <Electronically signed by Job James MD> 03/09/24 1112 [facility] Work Phone: [phone]) [phone] Consult note Author Luther Dozier [facility] March 09, 2024 10:59am Note Date/Time March 09, 2024 9: 07am [facility] [address] [place] [address] Neurology Consult Note Signed Patient: Solomon Pickard SR MR#: [id number] : 1965 Acct:[id number] Age/Sex: 58 / M Adm Date: 4 Loc: Room: [address] [place] [address] Type: ADM IN Attending Dr: João Powell MD Copies to: DO Jenaro Freeman DO Mohamad Akil, MD~ HPI Consult Date: 03/09/24 Leather Shaver: Luther Dozier DO [facility] Medical History Vitamin D deficiency 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 Restless legs syndrome Peripheral vascular disease Peripheral edema Memory changes Lung nodule Insulin long-term use Insomnia Hypotestosteronemia Hypertensive chronic kidney disease with stage 1 through stage 4 chronic kidney disease, or unspecified chronic kidney disease Headache Gout GERD (gastroesophageal reflux disease) Erectile dysfunction Contracture of hand Claudication of both lower extremities Cigarette nicotine dependence with nicotine-induced disorder Bladder mass Atrial fibrillation Atherosclerotic heart disease of [place] coronary artery with unspecified angina pectoris Anxiety Hx of exercise stress test Family history of premature CAD Reports mother had quadruple bypass at age of 45 [place]endo angina Leg edema Dyslipidemia Chest pain in adult Myocardial infarction mild Fibromyalgia Chronic back pain Sleep apnea Neuropathy Renal failure Cataract Peripheral artery disease Heart disease Hyperlipidemia Diabetes Hypertension Surgical History History of artificial lens replacement Hx of cardiac cath History of carpal tunnel release of both wrists History of angioplasty left lower extremity 2015,2018 History of colonoscopy 01/25/2019 S/P repair of hydrocele H/O arthroscopy of left knee History of carpal tunnel surgery of right wrist History of carpal tunnel surgery of left wrist Hx of appendectomy H/O heart artery stent 07/26/2015 Family History Mother Heart disease PAD (peripheral artery disease) Father Grandparent Legacy FamHx Relation: Maternal Grand Father Grandparent Legacy FamHx Relation: Maternal Grand Mother Mother Heart disease Social History Smoking Status: Unknown if ever smoked Tobacco Type: cigarettes Substance Use Type: None Social History Comments: [facility] Meds Medications and Allergies Allergies acetaminophen [From Percocet] Allergy (Unknown, Verified 03/08/24 14:17) Vomiting oxycodone [From Percocet] Allergy (Unknown, Verified 03/08/24 14:17) Vomiting Penicillins Allergy (Unknown, Verified 03/08/24 14:17) Anaphylaxis latex Allergy (Verified 03/08/24 14:17) Unknown Reaction Home Medications aspirin 81 mg chewable tablet 81 mg PO DAILY 04/01/18 [History Confirmed 03/08/24] albuterol sulfate 90 mcg/actuation aerosol inhaler (ProAir HFA) 2 puff inhalation Q6HR PRN Shortness Of Breath 06/28/19 [History Confirmed 03/08/24] atorvastatin 80 mg tablet 80 mg PO DAILY 08/08/19 [History Confirmed 03/08/24] dulaglutide 0.75 mg/0.5 mL subcutaneous pen injector (Trulicity) 0.75 mg subcut QWEEK 07/12/23 [History Confirmed 03/08/24] empagliflozin 10 mg tablet (Jardiance) 10 mg PO DAILY 07/12/23 [History Confirmed 03/08/24] nitroglycerin 0.4 mg sublingual tablet (Nitrostat) 0.4 mg sublingual Q5-15M PRN chest pain 07/12/23 [History Confirmed 03/08/24] rimegepant 75 mg disintegrating tablet (Nurtec ODT) 75 mg PO DAILY PRN migraine headache 07/12/23 [History Confirmed 03/08/24] valsartan 160 mg-hydrochlorothiazide 12.5 mg tablet 1 tab PO DAILY 07/12/23 [History Confirmed 03/08/24] flash glucose scanning reader (Max Rumpus Pedro 2 [place]) #1 ea 12/28/23 [Rx Confirmed 03/08/24] flash glucose sensor (CrescentratingStyle Pedro 2 Sensor kit) #1 ea 12/28/23 [Rx Confirmed 03/08/24] metformin 1,000 mg tablet 1,000 mg PO BID 90 days #180 tabs 01/03/24 [Rx Confirmed 03/08/24] ropinirole 1 mg tablet 1 mg PO TID #240 tabs 01/24/24 [Rx Confirmed 03/08/24] ipratropium bromide 17 mcg/actuation HFA aerosol inhaler (Atrovent HFA) 2 inh inhalation TID 03/03/24 [History Confirmed 03/08/24] tiotropium bromide 18 mcg capsule with inhalation device (Spiriva with HandiHaler) 1 cap inhalation DAILY 03/03/24 [History Confirmed 03/08/24] ferrous sulfate 325 mg (65 mg iron) tablet 325 mg PO Q2D 30 days #15 tabs 03/06/24 [Rx Confirmed 03/08/24] amitriptyline 25 mg tablet 25 mg PO DAILY 03/08/24 [History Confirmed 03/08/24] clopidogrel 75 mg tablet 75 mg PO DAILY 03/08/24 [History Confirmed 03/08/24] isosorbide mononitrate 30 mg tablet,extended release 24 hr 30 mg PO DAILY 03/08/24 [History Confirmed 03/08/24] metoprolol tartrate 100 mg tablet 50 mg PO BID 03/08/24 [History Confirmed 03/08/24] omeprazole 40 mg capsule,delayed release 40 mg PO DAILY 03/08/24 [History Confirmed 03/08/24] pregabalin 200 mg capsule (Lyrica) 200 mg PO TID 03/08/24 [History Confirmed 03/08/24] ropinirole 1 mg tablet 1 mg PO TID 03/08/24 [History Confirmed 03/08/24] sildenafil 100 mg tablet (Viagra) 100 mg PO DAILY PRN sexual activity 03/08/24 [History Confirmed 03/08/24] tamsulosin 0.4 mg capsule (Flomax) 0.4 mg PO BID 03/08/24 [History Confirmed 03/08/24] tizanidine 4 mg capsule 4 mg PO QHS 03/08/24 [History Confirmed 03/08/24] Exam Physical Exam Vital Signs: Temp Pulse Resp BP Pulse Ox O2 Del Method 97.6 F 110 H 18 155/96 H 99 Room Air 03/09/24 06:00 03/09/24 06:00 03/09/24 06:00 03/09/24 06:00 03/09/24 06:00 03/09/24 06:00 Results - Neuro Laboratory Findings 03/09/24 06:22 03/09/24 06:22 Lab Results: Ammonia 33 umol/L (11-35) 03/08/24 20:42 Diagnostic Findings Imaging/Impressions: ITS Impressions Head CT 03/08/24 14:15 IMPRESSION: No acute intracranial pathology. No evidence of critical stenosis, aneurysmal dilatation, dissection or occlusion. Impression dictated by: Negro Marks Jr., D.O.03/08/2024 2:41 PM Dictation Location: [place] [address] Chest X-Ray 03/08/24 17:03 IMPRESSION: No acute process. Impression dictated by: Sudeep Lind M.D.03/08/2024 6:08 PM Dictation Location: [place] [address] Brain MRI 03/08/24 17:48 IMPRESSION: No acute intracranial process. Impression dictated by: Sudeep Lind M.D.03/08/2024 8:10 PM Dictation Location: [place] [address] Assessment/Plan (1) Altered mental status: Qualifiers: Altered mental status type: unspecified Qualified Code(s): R41.82 - Altered mental status, unspecified Plan CONSULT REASON: Sudden AMS, stroke ruled out HPI: 58-year-old man. History that includes coronary artery disease with PCI, peripheral vascular disease, type 2 diabetes, hypertension, heart failure, diabetic neuropathy, status post recent below the knee amputation at [facility]. He had just been here several days prior to this presentation with syncope that was probably orthostatic hypotension related to autonomic neuropathy. After being discharged here he was at home and woke up and fell andreportedly did not hit his head. Patient was reportedly acting strange and being emotional and crying and moaning at home. Here at the hospital he was said to be lying in bed with his vision fixed upward and some tremulousness, fixated on the same question when asked. At the time of my encounter, he is lying in bed, awake, staring at the ceiling. The nurse tells me that he has been complaining constantly of pain all over hisbody. For me, when I start to talk to him he immediately starts to talk about chest pains and pain all through back and mentions it all over the rest of his body. He says he feels disoriented. He says he does not know where he is. He claims to not even know his own name. When asked what his middle name was he said Pierce or Usman or I do not know. He claimed to be unaware that his distal right upper extremity was amputated and seemed distraught about that. And yet he seems to remember that I saw him just a few days ago in the same hospital. He said the year was 20. EXAMINATION: Appears anxious. Right below the knee amputation, stapled. Remaining limbs seem well-perfused. No significant edema. Normal work of breathing. He is alert. Claims to not be oriented to self or circumstance of hospital and or thehospital or the year or the month. Attention impaired. He is fixated on his pain. Speech is monotone but fluent and nondysarthric. Pupils are equal. He claims to be unable to move his eyes left or right, staring straight ahead. No nystagmus. Facial sensation is normal. Hearing is normal. Facial strength is normal. Tongue is midline. Aside from the distal right lower extremity that isnonexistent and cannot be tested, muscle bulk, tone, and strength are likely normal. No waxy flexibility. No significant tremors at the time of my encounter. Reflexes trace throughout. Light touch is remains intact. Based onmy previous evaluation he has no pinprick or vibratory sensation distal to elbows in bilateral upper extremities and distal to mid thighs and bilateral lower extremities. No limb ataxia. DATA REVIEW: -BUN 19, creatinine 1.8, estimated GFR 43 -Hemoglobin 8.9, MCV 70.7, platelets 265 -Talk screen negative -Serum ammonia 33 -CT head nonacute -Routine EEG March 04, 2024 unremarkable -Carotid ultrasounds unremarkable -MRI of brain without contrast March 04, 2024 nonacute -MRI brain without contrast March 08, 2024 nonacute -MRA of head not concerning -Transthoracic echocardiogram is fine ASSESSMENT: Altered mental status thought not to be neurological in origin. Fixated on talking about his widespread pain. Claims to not know his own name and claims to be unaware the part of his right leg has been amputated. Is disoriented. Has monotone speech and a tendency to stare at the ceiling. An updated MRI of his brain is without any acute findings. PLAN: Routine EEG is pending but I suspect will look normal. He just had an EEG a fewdays ago that was normal. I think his mentation changes are functional or psychiatric in nature. Documented By: Luther Dozier DO 03/09/24 0859 Signed By: <Electronically signed by Luther Dozier DO> 03/09/24 8623 [facility] Work Phone: 1(639) 480-128910-05-2024 History and physical note Author João Powell [facility] March 08, 2024 10:05pm Note Date/Time March 08, 2024 7: 19pm [facility] [address] [place] [address] Hospitalist H&P Signed Patient: Solomon Pickard SR MR#: [id number] : 1965 Acct:[id number] Age/Sex: 58 / M Adm Date: 4 Loc: Room: [address] [place] [address] Type: ADM IN Attending Dr: João Powell MD Copies to: DO João Guzman MD~ HPI DATE OF EXAMINATION: 03/08/24 CHIEF COMPLAINT: Sudden change in mental status HISTORY OF PRESENT ILLNESS: Patient is a 58-year-old male with past medical's of coronary disease and PCI, PVD, type 2 diabetes, HTN, Heart failure as per the chart (could not specify hisEF or any recent echo on chart) diabetic neuropathy status post right BKA recently at [facility], here today for altered mental status. History obtained from the ED attending, patient's daughter and . Patient was not able to give me history given his poor mental status at the time.. He was just here few days ago for syncope which I believe was due to orthostatic hypotensionautonomic neuropathy. Patient was discharged 2 days ago, the same night he was doing well until he woke up the next morning when he fell and did not hit his head as per his who was with him at home. Patient fell with what appears like a mechanical fall. After that the patient was acting weird the whole day crying and moaning until the morning after when his tried to wake him up hewas hard to be awake and, then woke up and fell again but she is not sure if he banged his head at the time. Due to the concern of his altered mentation patient was brought to the hospital. In the hospital patient was noticed to be completely different than when I last saw him 2 days ago where he is lying in bed, fixating his vision upward responsive but has some shakiness in his body and fixating on the same question when asked. He is not aware of his surroundings and is not able to recognize his or daughter. Stroke alert was called in the ED but the CT head/CT a brain and neck were all negative. ED staff contacted [place] neuro stroke team and patient was deemed not eligible [place]. Patient is being admitted under the hospitalist service today for further workup and management. At baseline I am familiar with the patient being alert oriented x 3 following commands. In the ED, patient blood pressure was acceptable he was slightly tachycardic butEKG showed sinus rhythm his respiratory and oxygen saturation were normal as well. He had no fever or chills at home. His UA was negative. His CBC showed stable hemoglobin with no abnormalities in the other cell lines. His chemistry showed worsening creatinine of 1.[address] brain without contrast, CT angio of the brain and neck were all not significant. Troponin x 1 was negative. EKG showed no acute ischemic changes. Decision was made to observe this patient under hospitalist service for further workup and management Review of Systems Review of Systems Unobtainable due to mental status [facility] Medical History Vitamin D deficiency 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 Restless legs syndrome Peripheral vascular disease Peripheral edema Memory changes Lung nodule Insulin long-term use Insomnia Hypotestosteronemia Hypertensive chronic kidney disease with stage 1 through stage 4 chronic kidney disease, or unspecified chronic kidney disease Headache Gout GERD (gastroesophageal reflux disease) Erectile dysfunction Contracture of hand Claudication of both lower extremities Cigarette nicotine dependence with nicotine-induced disorder Bladder mass Atrial fibrillation Atherosclerotic heart disease of [place] coronary artery with unspecified angina pectoris Anxiety Hx of exercise stress test Family history of premature CAD Reports mother had quadruple bypass at age of 45 [place]endo angina Leg edema Dyslipidemia Chest pain in adult Myocardial infarction mild Fibromyalgia Chronic back pain Sleep apnea Neuropathy Renal failure Cataract Peripheral artery disease Heart disease Hyperlipidemia Diabetes Hypertension Surgical History History of artificial lens replacement Hx of cardiac cath History of carpal tunnel release of both wrists History of angioplasty left lower extremity 2015,2018 History of colonoscopy 01/25/2019 S/P repair of hydrocele H/O arthroscopy of left knee History of carpal tunnel surgery of right wrist History of carpal tunnel surgery of left wrist Hx of appendectomy H/O heart artery stent 07/26/2015 Family History Mother Heart disease PAD (peripheral artery disease) Father Grandparent Legacy FamHx Relation: Maternal Grand Father Grandparent Legacy FamHx Relation: Maternal Grand Mother Mother Heart disease Social History Smoking Status: Current every day smoker Tobacco Type: cigarettes Substance Use Type: None Social History Comments: [facility] Meds Medications and Allergies Allergies acetaminophen [From Percocet] Allergy (Unknown, Verified 03/08/24 14:17) Vomiting oxycodone [From Percocet] Allergy (Unknown, Verified 03/08/24 14:17) Vomiting Penicillins Allergy (Unknown, Verified 03/08/24 14:17) Anaphylaxis latex Allergy (Verified 03/08/24 14:17) Unknown Reaction Home Medications aspirin 81 mg chewable tablet 81 mg PO DAILY 04/01/18 [History Confirmed 03/08/24] albuterol sulfate 90 mcg/actuation aerosol inhaler (ProAir HFA) 2 puff inhalation Q6HR PRN Shortness Of Breath 06/28/19 [History Confirmed 03/08/24] atorvastatin 80 mg tablet 80 mg PO DAILY 08/08/19 [History Confirmed 03/08/24] dulaglutide 0.75 mg/0.5 mL subcutaneous pen injector (Trulicity) 0.75 mg subcut QWEEK 07/12/23 [History Confirmed 03/08/24] empagliflozin 10 mg tablet (Jardiance) 10 mg PO DAILY 07/12/23 [History Confirmed 03/08/24] nitroglycerin 0.4 mg sublingual tablet (Nitrostat) 0.4 mg sublingual Q5-15M PRN chest pain 07/12/23 [History Confirmed 03/08/24] rimegepant 75 mg disintegrating tablet (Nurtec ODT) 75 mg PO DAILY PRN migraine headache 07/12/23 [History Confirmed 03/08/24] valsartan 160 mg-hydrochlorothiazide 12.5 mg tablet 1 tab PO DAILY 07/12/23 [History Confirmed 03/08/24] flash glucose scanning reader (CrescentratingStyle Pedro 2 [place]) #1 ea 12/28/23 [Rx Confirmed 03/08/24] flash glucose sensor (FreeStyle Pedro 2 Sensor kit) #1 ea 12/28/23 [Rx Confirmed 03/08/24] metformin 1,000 mg tablet 1,000 mg PO BID 90 days #180 tabs 01/03/24 [Rx Confirmed 03/08/24] ropinirole 1 mg tablet 1 mg PO TID #240 tabs 01/24/24 [Rx Confirmed 03/08/24] ipratropium bromide 17 mcg/actuation HFA aerosol inhaler (Atrovent HFA) 2 inh inhalation TID 03/03/24 [History Confirmed 03/08/24] tiotropium bromide 18 mcg capsule with inhalation device (Spiriva with HandiHaler) 1 cap inhalation DAILY 03/03/24 [History Confirmed 03/08/24] ferrous sulfate 325 mg (65 mg iron) tablet 325 mg PO Q2D 30 days #15 tabs 03/06/24 [Rx Confirmed 03/08/24] amitriptyline 25 mg tablet 25 mg PO DAILY 03/08/24 [History Confirmed 03/08/24] clopidogrel 75 mg tablet 75 mg PO DAILY 03/08/24 [History Confirmed 03/08/24] isosorbide mononitrate 30 mg tablet,extended release 24 hr 30 mg PO DAILY 03/08/24 [History Confirmed 03/08/24] metoprolol tartrate 100 mg tablet 50 mg PO BID 03/08/24 [History Confirmed 03/08/24] omeprazole 40 mg capsule,delayed release 40 mg PO DAILY 03/08/24 [History Confirmed 03/08/24] pregabalin 200 mg capsule (Lyrica) 200 mg PO TID 03/08/24 [History Confirmed 03/08/24] ropinirole 1 mg tablet 1 mg PO TID 03/08/24 [History Confirmed 03/08/24] sildenafil 100 mg tablet (Viagra) 100 mg PO DAILY PRN sexual activity 03/08/24 [History Confirmed 03/08/24] tamsulosin 0.4 mg capsule (Flomax) 0.4 mg PO BID 03/08/24 [History Confirmed 03/08/24] tizanidine 4 mg capsule 4 mg PO QHS 03/08/24 [History Confirmed 03/08/24] Exam Physical Exam Vital Signs: Temp Pulse Resp BP Pulse Ox O2 Del Method 97.1 F L 105 H 20 101/72 98 Room Air 03/08/24 16:00 03/08/24 18:23 03/08/24 18:23 03/08/24 18:23 03/08/24 18:23 03/08/24 18:23 Narrative: Constitutional Ill appearing, confused, pt is lying in bed shaking, starring at the ceiling butresponsive. Apprehensive HEENT Exam Head Exam: normocephalic Eye Exam: no EOMI, pupils were reactive but more sluggish on the right ENT Exam: mucous membranes dry Neck Exam Neck Exam: no meningismus Respiratory Exam Respiratory Exam: CTA bilaterally and no respiratory distress, no wheezes or crackles Cardiovascular Exam Cardiovascular exam: tachycardia but regular rhythm, no murmurs, normal S1 and S2 Abdominal Exam GI/Abdominal Exam: no tenderness Extremities Exam Extremities Exam: normal capillary refill and amputation (Right lower extremity) Skin Exam Skin Exam: pallor and dry Neurological Exam Neurological Exam: awake but not alert or oriented, starring at the ceiling but responsive, shaking, responds to painful stimuli, keeps on repeating the same question asked to him Results - Hospitalist H&P Lab Results Labs: Laboratory Last Values Corrected WBC 8.9 X10E3/uL (4.1-10.5) 03/08/24 14:15 Uncorrected WBC Count 8.9 x10E3/uL (4.1-10.5) 03/08/24 14:15 RBC 4.54 X10E6/uL (3.90-5.60) 03/08/24 14:15 Hgb 10.3 g/dL (13.0-17.0) L 03/08/24 14:15 Hct 32.2 % (38.8-50.0) L 03/08/24 14:15 MCV 71.0 fl (83.5-101) L 03/08/24 14:15 MCH 22.7 pg (27.5-35.2) L 03/08/24 14:15 MCHC 32.0 g/dL (32.5-35.6) L 03/08/24 14:15 RDW 22.0 % (12.0-14.8) H 03/08/24 14:15 Plt Count 286 x10E3/uL (150-450) 03/08/24 14:15 MPV 8.2 fl (6.6-10.1) 03/08/24 14:15 Neut % (Auto) 69.4 % (.) 03/08/24 14:15 Lymph % (Auto) 13.1 % (.) 03/08/24 14:15 Wells % (Auto) 13.2 % (.) 03/08/24 14:15 Eos % (Auto) 3.3 % (.) 03/08/24 14:15 Baso % (Auto) 1.0 % (.) 03/08/24 14:15 Nucleat RBC Rel Count 0.2 /100 WBC (0-0.5) 03/08/24 14:15 Neut # (Auto) 6.2 x10E3/uL (1.8-7.7) 03/08/24 14:15 Lymph # (Auto) 1.2 x10E3/uL (1.00-4.8) 03/08/24 14:15 Wells # (Auto) 1.2 x10E3/uL (0.0-0.8) H 03/08/24 14:15 Eos # (Auto) 0.3 x10E3/uL (0.0-0.45) 03/08/24 14:15 Baso # (Auto) 0.1 x10E3/uL (0.0-0.2) 03/08/24 14:15 Monocyte Dist Width 18.68 % (0.00-20.00) 03/08/24 14:15 PT 13.0 Seconds (9.0-12.9) H 03/08/24 14:15 INR 1.1 03/08/24 14:15 APTT 29.6 Seconds (25.1-36.5) 03/08/24 14:15 Sample Site Left radial 03/08/24 15:14 ABG pH 7.44 (7.35-7.45) 03/08/24 15:14 ABG pCO2 33.3 mmHg (35.0-45.0) L 03/08/24 15:14 ABG pO2 92.6 mmHg (80.0-100.0) 03/08/24 15:14 ABG HCO3 22.2 mmol/L (23.0-29.0) L 03/08/24 15:14 ABG Total CO2 23.2 mmol/L (23.0-27.0) 03/08/24 15:14 ABG O2 Saturation 97.1 % (95.0-100.0) 03/08/24 15:14 ABG O2 Content 6.4 mmol/L (6.6-9.7) L 03/08/24 15:14 ABG Base Excess -1.4 mmol/L (-3.0-3.0) 03/08/24 15:14 FiO2 21 % 03/08/24 15:14 Critical Value 03/08/24 15:14 PHA Creatinine Clear 44.90 03/08/24 14:15 Sodium 141 mmol/L (136-145) 03/08/24 14:15 Potassium 4.1 mmol/L (3.5-5.1) 03/08/24 14:15 Chloride 106 mmol/L (98-107) 03/08/24 14:15 Carbon Dioxide 25.0 mmol/L (21.0-31.0) 03/08/24 14:15 Anion Gap 14.1 mEq/L (6.0-15.0) 03/08/24 14:15 BUN 19 mg/dL (7-25) 03/08/24 14:15 Creatinine 1.91 mg/dL (0.70-1.30) H 03/08/24 14:15 Est GFR (CKD-EPI) 40.131 mL/Min 03/08/24 14:15 Glucose 167 mg/dL (70-100) H 03/08/24 14:15 POC Glucose 182 mg/dl 03/08/24 14:15 Lactic Acid 1.1 mmol/L (0.5-2.2) 03/08/24 15:44 Calcium 9.6 mg/dL (8.6-10.3) 03/08/24 14:15 Total Bilirubin 0.4 mg/dl (0.3-1.0) 03/08/24 14:15 AST 14 U/L (13-39) 03/08/24 14:15 ALT 13 U/L (7-52) 03/08/24 14:15 Alkaline Phosphatase 116 U/L (34-104) H 03/08/24 14:15 Total Creatine Kinase 181 U/L (30-223) 03/08/24 14:15 Troponin I High Sens 6.1 pg/mL (0.0-20.0) 03/08/24 14:15 Total Protein 7.7 gm/dL (6.4-8.9) 03/08/24 14:15 Albumin 3.8 gm/dL (3.5-5.7) 03/08/24 14:15 Globulin 3.9 gm/dL 03/08/24 14:15 Albumin/Globulin Ratio 1.0 03/08/24 14:15 Urine Color Light-yellow (Yellow) 03/08/24 16:11 Urine Appearance Clear (Clear) 03/08/24 16:11 Urine pH 5.0 (5.0-9.0) 03/08/24 16:11 Ur Specific [place] 1.013 (1.001-1.030) 03/08/24 16:11 Urine Protein Negative mg/dL (Negative) 03/08/24 16:11 Urine Glucose (UA) >=1000 mg/dL (Normal) H 03/08/24 16:11 Urine Ketones Negative (Negative) 03/08/24 16:11 Urine Occult Blood Negative (Negative) 03/08/24 16:11 Urine Nitrite Negative (Negative) 03/08/24 16:11 Urine Bilirubin Negative (Negative) 03/08/24 16:11 Urine Urobilinogen Normal mg/dL (Normal) 03/08/24 16:11 Ur Leukocyte Esterase Negative (Negative) 03/08/24 16:11 Urine Opiates Screen Negative (Negative) 03/08/24 16:11 Ur Barbiturates Screen Negative (Negative) 03/08/24 16:11 Ur Phencyclidine Scrn Negative (Negative) 03/08/24 16:11 Ur Amphetamines Screen Negative (Negative) 03/08/24 16:11 U Benzodiazepines Scrn Negative (Negative) 03/08/24 16:11 Urine Cocaine Screen Negative (Negative) 03/08/24 16:11 U Marijuana (THC) Screen Negative (Negative) 03/08/24 16:11 COVID-19 Clin Com Not detected (Not Detecte) 03/08/24 16:50 Microbiology Results Micro: Microbiology - Results from entire visit 03/08/24 16:50 Nasopharyngeal Respiratory Panel (PCR) - Final ABG Interpretation ABG results: 03/08/24 15:14 ABG pH 7.44 ABG pCO2 33.3 L ABG pO2 92.6 ABG HCO3 22.2 L ABG Total CO2 23.2 ABG O2 Saturation 97.1 ABG O2 Content 6.4 L ABG Base Excess -1.4 Assessment & Plan Assessment/Plan (1) Altered mental status: (2) Syncope: Plan Acute Delirium, Encephalopathy likely metabolic CVA is less likely Post-concussion for possible Head trauma? Possible Psychiatric Conversion disorder -Patient is here today with above HPI, physical exam, lab and imaging result -Admit patient to medical floor -Obtain MRI brain stat without contrast>>was negative for CVA -Obtain EEG -Obtain neurology consult -Start NS 60 mL/h for the next 24 hours -Continue to closely monitor pt's neurologic status This patient mental status was alert and x 3 last time I saw him however given this presentation I am suspecting his metabolic versus concussion sequelae even though the is not aware of him having any head trauma. IP vs OBS Justification Based on differential dx, clinical care plan, and risk of adverse events, if untreated, in my clinical judgement this patient requires an acute care setting as: INPATIENT because of an expectation of an over 2 midnight stay. Estimated length of stay (# of days): 4 Time Spent With Patient (min): 60 Documented By: João Powell MD 03/08/241909 Signed By: <Electronically signed by João Powell MD> 03/08/24 5502 [facility] Work Phone: 1(574) 708-120110-01-2024 Progress note Author Luther Dozier [facility] March 05, 2024 2:28pm Note Date/Time March 05, 2024 2: 22pm [facility] [address] [place] [address] Neurology Progress Note Signed Patient: Solomon Pickard SR MR#: [id number] : 1965 Acct:[id number] Age/Sex: 58 / M Adm Date: 4 Loc: 3T Room: [address] [place] [address] Type: ADM IN Attending Dr: João Powell MD Copies to: ~ Date of Service: 03/05/2024 Exam Physical Exam Vital Signs: Temp Pulse Resp BP Pulse Ox O2 Del Method 98.0 F 84 18 150/84 H 99 Room Air 03/05/24 07:35 03/05/24 14:00 03/05/24 14:00 03/05/24 07:35 03/05/24 07:35 03/05/24 08:00 Objective Vital Signs Vital Signs: Vital Signs - 24 hr 03/04/24 14:25 03/04/24 17:04 03/04/24 17:25 Temperature 98.2 F 98.2 F Pulse Rate 88 104 H 104 H Respiratory Rate 20 16 16 Blood Pressure 152/93 H 121/70 02 Sat by Pulse Oximetry 100 100 Oxygen Delivery Method 03/04/24 17:40 03/04/24 18:10 03/04/24 19:20 Temperature 98.2 F 98.2 F 98.2 F Pulse Rate 103 H 101 H 105 H Respiratory Rate 16 16 16 Blood Pressure 140/82 136/66 151/74 H 02 Sat by Pulse Oximetry 99 95 100 Oxygen Delivery Method 03/04/24 20:00 03/04/24 20:00 03/04/24 20:56 Temperature 98.2 F Pulse Rate 103 H 103 H Respiratory Rate 18 20 Blood Pressure 133/81 02 Sat by Pulse Oximetry 100 Oxygen Delivery Method Room Air 03/05/24 04:00 03/05/24 05:10 03/05/24 07:35 Temperature 97.7 F 98.0 F Pulse Rate 86 86 85 Respiratory Rate 18 18 16 Blood Pressure 145/81 H 150/84 H 02 Sat by Pulse Oximetry 97 99 Oxygen Delivery Method Room Air 03/05/24 08:00 03/05/24 10:04 03/05/24 14:00 Temperature Pulse Rate 90 84 Respiratory Rate 18 18 Blood Pressure 02 Sat by Pulse Oximetry Oxygen Delivery Method Room Air Labs 03/05/24 06:54 03/05/24 06:54 Therapy Recommendations Therapy Recommendations: OT Recommendations OT Recommended Discharge [facility]iary Facility Location PT Recommendations PT Recommended Discharge Penitentiary Facility Location PT Recommended Services at Physical Therapy,Occupational Therapy Discharge Assessment/Plan (1) Syncope: Qualifiers: Syncope type: unspecified Qualified Code(s): R55 - Syncope and collapse Plan CONSULT REASON: Syncope SUBJECTIVE: No new complaints today. Nothing to add to review of systems. Stable BPs often SBP 140s-150s. EXAMINATION: In no distress. Right below the knee amputation, stapled. Remaining limbs seemwell-perfused. No significant edema. Normal work of breathing. Affect normal. Patient is alert and generally oriented. Attention normal. Speech is fluent and nondysarthric. Pupils are equal and reactive. Ocular motility is full. No nystagmus. Facial sensation is normal. Hearing is normal. Facial strength is normal. Tongue is midline. Aside from the distal right lower extremity that is nonexistent and cannot be tested, muscle bulk, tone, and strength are normal. No significant tremors at the time of my encounter. Reflexes trace throughout. Light touch is remains intact. He has no pinprick or vibratory sensation distal to elbows in bilateral upper extremities and distal to mid thighs and bilateral lower extremities. No limb ataxia. DATA REVIEW: -BUN 36, creatinine 1.83, estimated GFR 42 -CT head nonacute -Routine EEG March 04, 2024 unremarkable -Carotid ultrasounds unremarkable -MRI of brain nonacute -MRA of head not concerning -Transthoracic echocardiogram is fine ASSESSMENT: 58-year-old man with severe diabetic polyneuropathy and vasculopathy. Presents after positional presyncope and a syncopal event. Multifactorial contributors: He very likely has an underlying autonomic component to his neuropathy. He was hypovolemic and his blood pressure was significantly low. Home medications include a diuretic and an alpha-lamont andbeta-lamont. And he is severely anemic with his most recent hemoglobin only 7.4. I still do not notice any significant tremors at the time of my encounter. He might have orthostatic tremulousness. It could also be medication effect. PLAN: 1. Looks like tamsulosin is currently held. I would go without this one if possible. 2. Furosemide is currently held. Metoprolol appears to be held as well. 3. The home pregabalin 200 mg 3 times daily is currently held. With his renal function, if he needs to go back on the pregabalin then it should probably be more like 100 mg 3 times daily maximum. 4. No other recommendations at this time from a neurology standpoint; he can have outpatient neuro follow up regarding the neuropathy Documented By: Luther Dozier DO 03/05/24 1420 Signed By: <Electronically signed by Luther Dozier DO> 03/05/24 1428 [facility] Work Phone: 1([phone]) 810-807510-01-2024 Progress note Author João Powell [facility] March 05, 2024 2:17pm Note Date/Time March 05, 2024 2: 17pm [facility] [address] [place] [address] Hospitalist Progress Note Signed Patient: Solomon Pickard SR MR#: [id number] : 1965 Acct:[id number] Age/Sex: 58 / M Adm Date: 4 Loc: 3T Room: [address] [place] [address] Type: ADM IN Attending Dr: João Powell MD Copies to: ~ Date of Service: 03/05/2024 Subjective Subjective Narrative: Patient seen examined bedside. Denies having shortness of breath or dizziness today. Hemoglobins been stable after the 1 packed RBC unit transfusion.'s are very low so I started him on IV iron. Consulted GI for possible need for further intervention. I will restart aspirin as per GI recommendation Exam Physical Exam Vital Signs: Temp Pulse Resp BP Pulse Ox O2 Del Method 98.0 F 84 18 150/84 H 99 Room Air 03/05/24 07:35 03/05/24 14:00 03/05/24 14:00 03/05/24 07:35 03/05/24 07:35 03/05/24 08:00 Narrative: General: Alert and oriented x3, lying in bed comfortably, still ill appearing, not in acute distress, calm, and cooperative HEENT: Pale conjunctiva with PERRLA, no lymphadenopathy, no thyromegaly, neck issupple Chest: Good bilateral air entry, no wheezes or crackles, saturating 97% on RA CVS: Normal S1 and S2, no murmurs Abdomen: Hard, there is some fullness on exam with poorly localized tenderness on palpation, no rebound tenderness Extremities: Right BKA the stump has some erythema but I could not feel any collection or swelling, left lower extremity showing signs of neuropathy/claudication with poor hair distribution and faint DP and PT pulses Neuro: Alert and oriented x3, following commands, no focal motor or sensory deficits, tremors improved Objective Lab Results 03/05/24 06:54 03/05/24 06:54 Meds Allergies and Active Meds Allergies acetaminophen [From Percocet] Allergy (Unknown, Verified 03/03/24 13:45) Vomiting oxycodone [From Percocet] Allergy (Unknown, Verified 03/03/24 13:45) Vomiting Penicillins Allergy (Unknown, Verified 03/03/24 13:45) Anaphylaxis latex Allergy (Verified 03/03/24 17:53) Unknown Reaction Active Meds: Active Medications Generic Name Dose Route Start Last Admin Trade Name Freq PRN Reason Stop Dose Admin Albuterol 2 puff 03/03/24 22:50 Albuterol Hfa 60 Puff/8 Gram Inhaler INHALATION 03/03/25 22:49 Q6H PRN Shortness Of Breath Aspirin 81 mg 03/04/24 09:00 03/04/24 09:09 Aspirin 81 Mg Tab.Chew PO 03/04/25 08:59 Not Given DAILY SATISH Baclofen 10 mg 03/03/24 22:50 03/04/24 21:20 Baclofen 10 Mg Tablet PO 03/03/25 22:49 10 mg Q6H PRN Administration muscle spasm Dextrose 0 gm 03/04/24 11:50 Dextrose 50% In Water 25 Gm/50 Ml Syringe IV-PUSH 03/04/25 11:49 PRN PRN Hypoglycemia Glucose 0 gm 03/04/24 11:50 Dextrose 40% Gel 15 Gm Tube PO 03/04/25 11:49 PRN PRN Hypoglycemia Heparin Sodium (Porcine) 5,000 unit 03/04/24 06:00 03/04/24 05:31 Heparin 5,000 Unit/Ml Vial SUBCUT 03/04/25 05:59 5,000 unit Q8HR SATISH Administration Sodium Chloride 1,000 mls @ 60 mls/hr 03/03/24 18:00 03/05/24 06:06 0.9% Sodium Chloride 1,000 Ml IV 03/03/25 17:59 60 mls/hr .[id number] SATISH Administration Ferric Sodium Gluconate 110 mls @ 110 mls/hr 03/05/24 12:00 03/05/24 13:18 Complex 125 mg/ Sodium IV 03/07/24 09:01 110 mls/hr Chloride QAM SATISH Administration Insulin Aspart 0 units 03/04/24 12:00 03/05/24 11:41 Insulin Aspart 300 Units/3 Ml Insuln.Pen SUBCUT 03/04/25 11:59 Not Given TID.WM.HS SATISH Protocol Ipratropium [place] 0.5 mg 03/04/24 09:00 03/05/24 13:59 Ipratropium [place] 0.5 Mg/2.5 Ml Vial.Neb INHALATION 03/04/25 08:59 0.5 mg QID SATISH Administration Melatonin 5 mg 03/04/24 22:15 03/04/24 22:21 Melatonin 5 Mg Tablet PO 03/04/25 22:14 5 mg QHS SATISH Administration Rimegepant [Nurtec 75 mg 03/03/24 22:50 Odt] 75 Mg Tablet, PO 03/03/25 22:49 Disintegrating DAILY PRN migraine headache Oxycodone HCl 10 mg 03/03/24 23:22 03/05/24 06:55 Oxycodone Ir 5 Mg Tablet PO 10 mg Q6HR PRN Administration pain Pantoprazole Sodium 40 mg 03/04/24 09:00 03/05/24 09:15 Pantoprazole 40 Mg Tablet.Dr PO 03/04/25 08:59 40 mg BID SATISH Administration Polyethylene Glycol 17 gm 03/04/24 09:00 03/05/24 09:15 Polyethylene Glycol 3350 17 Gm Powd.Pack PO 03/04/25 08:59 17 gm DAILY SATISH Administration Ropinirole HCl 1 mg 03/04/24 09:00 03/05/24 13:18 Ropinirole 1 Mg Tablet PO 03/04/25 08:59 1 mg TID SATISH Administration Sennosides 8.6 mg 03/04/24 09:00 03/05/24 09:15 Sennosides 8.6 Mg Tablet PO 03/04/25 08:59 8.6 mg BID SATISH Administration Sodium Chloride 0 ml 03/03/24 13:44 Sodium Chloride 0.9 % 10 Ml Syringe IV-PUSH 03/03/25 13:43 PRN PRN Flush Sodium Chloride 0 ml 03/03/24 13:48 Sodium Chloride 0.9 % 10 Ml Syringe IV-PUSH 03/03/25 13:47 PRN PRN Flush Sodium Chloride 10 ml 03/03/24 17:00 03/05/24 09:16 Sodium Chloride 0.9 % 10 Ml Syringe IV-PUSH 03/03/25 16:59 10 ml Q8H SATISH Administration Trazodone HCl 25 mg 03/04/24 22:13 03/04/24 22:21 Trazodone 50 Mg Tablet PO 03/04/25 22:12 25 mg QHS PRN Administration Insomnia A&P - Hospitalist Assessment/Plan (1) Restless legs syndrome: (2) GERD (gastroesophageal reflux disease): (3) Cigarette nicotine dependence with nicotine-induced disorder: (4) Atrial fibrillation: (5) Chronic back pain: (6) Hyperlipidemia: (7) Hypertension: (8) Chronic kidney disease: (9) 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: (10) CAD (coronary artery disease): (11) Diabetes: (12) Syncope: Plan Syncope, likely in the setting of autonomic neuropathy Medication side effect Rule out seizure (less likely) Rule out cardiogenic causes (also I believe is less likely) Also could be due to autonomic neuropathy from medications and type 2 diabetes ROEL on CKD in the setting of dehydration Tremors likely due to medication side effects Symptomatic Iron deficiency Anemia, will need to rule out hemorrhagic shock -Hemoglobin improved after 1 packed RBC -GI consulted, recommended continuing the PPI. Also recommend avoiding NSAIDs besides 81 mg aspirin which I followed. -No inpatient intervention as per GI, recommended outpatient follow-up -Ferritin is 7, iron is also low I started the patient on IV Venofer for today and tomorrow -Will recheck CBC in a.m. after restarting aspirin, if stable will give him another dose of IV iron and will discharge him -MRI brain did not show any acute pathology, will follow neurology regarding histremors -EEG is negative -Patient and family wants to go to home with home health. Full code Omeprazole PO for DVT PPx No SCD as pt has right BKA Activity as tolerated I discussed the plan of plan with the patient at bedside. They understand and agree with this plan of management Time Spent With Patient (min): 45 Documented By: João Powell MD 03/05/24 1404 Signed By: <Electronically signed by João Powell MD> 03/05/24 9959 [facility] Work Phone: 1(461) 384-241410-01-2024 Consult note Author Mike Burleson [facility] March 05, 2024 1:35pm Note Date/Time March 05, 2024 9: 32am [facility] [address] [place] [address] Gastroenterology Consult Note Signed Patient: Solomon Pickard SR MR#: [id number] : 1965 Acct:[id number] Age/Sex: 58 / M Adm Date: 4 Loc: 3T Room: [address] [place] [address] Type: ADM IN Attending Dr: João Powell MD Copies to: DO Mike Guzman MD Mohamad Akil, MD~ HPI Data of Consult Date of Consultation: 03/05/24 Requesting Physician: João Powell MD Consult Narrative History of present illness: Mr. Pickard is a 58 year old male with a past medical history significant for CAD,DM2, HTN, heart failure, who was admitted with altered mentation. Apparently patient had a episode of syncope or near syncope. Who GI is consulted for anemia. The patient's baseline hemoglobin going back to the last several monthsappears to be 7-8. Since admission his hemoglobin has been at this baseline of 7-8. Additionally the patient had a right BKA just a few weeks ago. The patient is denying any overt GI bleeding. The patient states that he takes prescription strength Prilosec and is very diligent with this because if he doesnot take it he gets reflux. He states he does not take any NSAIDs besides for an 81 mg aspirin. He states he has been up-to-date on his colorectal cancer screening. cc:: CC: João Powell MD Review of Systems Constitutional Constitutional: Denies poor appetite and Denies weight loss Eyes Eyes: Denies change in vision and Denies eye discharge ENT Ears, Nose, Mouth, and Throat: Denies nasal discharge, Denies sore throat and Denies vertigo Cardiovascular Cardiovascular: Denies chest pain and Denies dyspnea on exertion Respiratory Respiratory: Denies chest congestion, Denies cough and Denies dyspnea on exertion Gastrointestinal Gastrointestinal: Reports as per HPI Musculoskeletal Musculoskeletal: Denies arthralgias, Denies muscle weakness and Denies numbness Integumentary/Breasts Skin/Breast: Denies change in pigmentation and Denies rash Neurologic Neurologic: Denies numbness and Denies vertigo Psychiatric Psychiatric: Denies anxiety and Denies depression Hematologic/Lymphatic Hematologic/Lymphatic: Denies easy bruising and Denies lymphadenopathy [facility] Medical History Vitamin D deficiency 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 Restless legs syndrome Peripheral vascular disease Peripheral edema Memory changes Lung nodule Insulin long-term use Insomnia Hypotestosteronemia Hypertensive chronic kidney disease with stage 1 through stage 4 chronic kidney disease, or unspecified chronic kidney disease Headache Gout GERD (gastroesophageal reflux disease) Erectile dysfunction Contracture of hand Claudication of both lower extremities Cigarette nicotine dependence with nicotine-induced disorder Bladder mass Atrial fibrillation Atherosclerotic heart disease of [place] coronary artery with unspecified angina pectoris Anxiety Hx of exercise stress test Family history of premature CAD Reports mother had quadruple bypass at age of 45 Crescendo angina Leg edema Dyslipidemia Chest pain in adult Myocardial infarction mild Fibromyalgia Chronic back pain Sleep apnea Neuropathy Renal failure Cataract Peripheral artery disease Heart disease Hyperlipidemia Diabetes Hypertension Surgical History History of artificial lens replacement Hx of cardiac cath History of carpal tunnel release of both wrists History of angioplasty left lower extremity 2015,2018 History of colonoscopy 01/25/2019 S/P repair of hydrocele H/O arthroscopy of left knee History of carpal tunnel surgery of right wrist History of carpal tunnel surgery of left wrist Hx of appendectomy H/O heart artery stent 07/26/2015 Family History Mother Heart disease PAD (peripheral artery disease) Father Grandparent Legacy FamHx Relation: Maternal Grand Father Grandparent Legacy FamHx Relation: Maternal Grand Mother Mother Heart disease Social History Smoking Status: Current every day smoker Tobacco Type: cigarettes Substance Use Type: None Social History Comments: [facility] Meds Medications and Allergies Allergies acetaminophen [From Percocet] Allergy (Unknown, Verified 03/03/24 13:45) Vomiting oxycodone [From Percocet] Allergy (Unknown, Verified 03/03/24 13:45) Vomiting Penicillins Allergy (Unknown, Verified 03/03/24 13:45) Anaphylaxis latex Allergy (Verified 03/03/24 17:53) Unknown Reaction Home Medications aspirin 81 mg chewable tablet 81 mg PO DAILY 04/01/18 [History Confirmed 03/03/24] glimepiride 2 mg tablet 2 mg PO BID 04/01/18 [History Confirmed 03/03/24] albuterol sulfate 90 mcg/actuation aerosol inhaler (ProAir HFA) 2 puff inhalation Q6HR PRN Shortness Of Breath 06/28/19 [History Confirmed 03/03/24] atorvastatin 80 mg tablet 80 mg PO DAILY 08/08/19 [History Confirmed 03/03/24] amitriptyline 25 mg tablet 100 mg PO DAILY 07/12/23 [History Confirmed 03/03/24] dulaglutide 0.75 mg/0.5 mL subcutaneous pen injector (Trulicity) 0.75 mg subcut QWEEK 07/12/23 [History Confirmed 03/03/24] empagliflozin 10 mg tablet (Jardiance) 10 mg PO DAILY 07/12/23 [History Confirmed 03/03/24] isosorbide mononitrate 30 mg tablet,extended release 24 hr 30 mg PO DAILY 07/12/23 [History Confirmed 03/03/24] nitroglycerin 0.4 mg sublingual tablet (Nitrostat) 0.4 mg sublingual Q5-15M PRN chest pain 07/12/23 [History Confirmed 03/03/24] rimegepant 75 mg disintegrating tablet (Nurtec ODT) 75 mg PO DAILY PRN migraine headache 07/12/23 [History Confirmed 03/03/24] tamsulosin 0.4 mg capsule 0.4 mg PO BID 07/12/23 [History Confirmed 03/03/24] valsartan 160 mg-hydrochlorothiazide 12.5 mg tablet 1 tab PO DAILY 07/12/23 [History Confirmed 03/03/24] omeprazole 40 mg capsule,delayed release 40 mg PO DAILY #90 caps 09/27/23 [Rx Confirmed 03/03/24] pregabalin 200 mg capsule (Lyrica) 200 mg PO TID 90 days #270 caps 12/05/23 [Rx Confirmed 03/03/24] metoprolol tartrate 100 mg tablet 50 mg (1/2 x 100 mg) PO BID #180 tabs 12/25/23[Rx Confirmed 03/03/24] flash glucose scanning reader (Max Rumpus Pedro 2 [place]) #1 ea 12/28/23 [Rx Confirmed 03/03/24] flash glucose sensor (FreeStyle Pedro 2 Sensor kit) #1 ea 12/28/23 [Rx Confirmed 03/03/24] clopidogrel 75 mg tablet (Plavix) 75 mg PO DAILY #90 tabs 01/03/24 [Rx Confirmed 03/03/24] metformin 1,000 mg tablet 1,000 mg PO BID 90 days #180 tabs 01/03/24 [Rx Confirmed 03/03/24] ropinirole 1 mg tablet 1 mg PO TID #240 tabs 01/24/24 [Rx Confirmed 03/03/24] baclofen 10 mg tablet 10 mg PO Q6HR PRN muscle spasm 03/03/24 [History Confirmed 03/03/24] furosemide 20 mg tablet (Lasix) 40 mg PO QAM 03/03/24 [History Confirmed 03/03/24] insulin glargine 100 unit/mL (3 mL) subcutaneous pen (Basaglar KwikPen U-100 Insulin) 35 unit subcut QAM 03/03/24 [History Confirmed 03/03/24] insulin lispro 100 unit/mL subcutaneous pen (Humalog KwikPen (U-100) Insulin) 1 sliding scale dose subcut DIRECTED 03/03/24 [History Confirmed 03/03/24] ipratropium bromide 17 mcg/actuation HFA aerosol inhaler (Atrovent HFA) 2 inh inhalation TID 03/03/24 [History Confirmed 03/03/24] nutritional supplements (Nutra Pro High Protein oral powder) 1 ea PO BID 03/03/24 [History Confirmed 03/03/24] oxycodone 10 mg tablet 10 mg PO Q6HR PRN pain 03/03/24 [History Confirmed 03/03/24] polyethylene glycol 3350 17 gram/dose oral powder (ClearLax) 17 g PO DAILY 03/03/24 [History Confirmed 03/03/24] sennosides 8.6 mg tablet (Senna Laxative) 8.6 mg PO BID 03/03/24 [History Confirmed 03/03/24] tiotropium bromide 18 mcg capsule with inhalation device (Spiriva with HandiHaler) 1 cap inhalation DAILY 03/03/24 [History Confirmed 03/03/24] Exam Physical Exam Vital Signs: Temp Pulse Resp BP Pulse Ox O2 Del Method 98.0 F 85 16 150/84 H 99 Room Air 03/05/24 07:35 03/05/24 07:35 03/05/24 07:35 03/05/24 07:35 03/05/24 07:35 03/05/24 07:35 Const General: no acute distress and well developed HEENT Head: normocephalic and atraumatic Mouth: moist mucous membranes Eyes Sclera: sclerae normal (no scleral icterus) EOM: EOM intact bilaterally Neck Other: trachea midline Resp Effort & Inspection: normal respiratory effort and able to speak in complete sentences GI Inspection: normal to inspection and non-distended Palpation: soft and nontender Skin General: turgor normal and no jaundice Neuro General: patient alert and patient oriented x3 Psych Appearance: grossly normal Mental Status: mental status grossly normal Results - Gastroenterology Labs Labs: Laboratory Results - last 24 hr 03/04/24 03/04/24 03/04/24 11:17 12:12 12:16 Corrected WBC Uncorrected WBC Count RBC Hgb Hct MCV MCH MCHC RDW Plt Count MPV Neut % (Auto) Lymph % (Auto) Wells % (Auto) Eos % (Auto) Baso % (Auto) Nucleat RBC Rel Count Neut # (Auto) Lymph # (Auto) Wells # (Auto) Eos # (Auto) Baso # (Auto) PHA Creatinine Clear Sodium Potassium Chloride Carbon Dioxide Anion Gap BUN Creatinine Est GFR (CKD-EPI) Glucose POC Glucose 236 POC Glucose Comment Calcium Phosphorus Magnesium Iron 13 L TIBC 403 Iron Saturation 3.2 L Transferrin 288 Ferritin Total Bilirubin AST ALT Alkaline Phosphatase Total Protein Albumin Globulin Albumin/Globulin Ratio Vitamin B12 Folate TSH 3rd Generation Cancelled Blood Type O Positive Blood Type Recheck Antibody Screen Negative Crossmatch ([facility]) See Detail 03/04/24 03/04/24 03/04/24 13:07 14:29 16:32 Corrected WBC Uncorrected WBC Count RBC Hgb Hct MCV MCH MCHC RDW Plt Count MPV Neut % (Auto) Lymph % (Auto) Wells % (Auto) Eos % (Auto) Baso % (Auto) Nucleat RBC Rel Count Neut # (Auto) Lymph # (Auto) Wells # (Auto) Eos # (Auto) Baso # (Auto) PHA Creatinine Clear Sodium Potassium Chloride Carbon Dioxide Anion Gap BUN Creatinine Est GFR (CKD-EPI) Glucose POC Glucose 279 POC Glucose Comment Calcium Phosphorus Magnesium Iron TIBC Iron Saturation Transferrin Ferritin 7.7 L Total Bilirubin AST ALT Alkaline Phosphatase Total Protein Albumin Globulin Albumin/Globulin Ratio Vitamin B12 170 L Folate 7.8 TSH 3rd Generation 2.90 Blood Type Blood Type Recheck O Positive Antibody Screen Crossmatch ([facility]) 03/04/24 03/05/24 03/05/24 20:45 06:11 06:54 Corrected WBC 8.3 Uncorrected WBC Count 8.3 RBC 3.83 L Hgb 8.6 L Hct 26.8 L MCV 70.1 L MCH 22.4 L MCHC 31.9 L RDW 21.4 H Plt Count 361 MPV 7.9 Neut % (Auto) 67.6 Lymph % (Auto) 16.1 Wells % (Auto) 12.4 Eos % (Auto) 2.8 Baso % (Auto) 1.1 Nucleat RBC Rel Count 0.0 Neut # (Auto) 5.6 Lymph # (Auto) 1.3 Wells # (Auto) 1.0 H Eos # (Auto) 0.2 Baso # (Auto) 0.1 PHA Creatinine Clear 59.31 Sodium 138 Potassium 4.1 Chloride 107 Carbon Dioxide 25.2 Anion Gap 9.9 BUN 24 Creatinine 1.49 H Est GFR (CKD-EPI) 54.062 Glucose 105 H POC Glucose 213 151 POC Glucose Comment Glu2: cleaned meter Glu2: cleaned meter Calcium 8.6 Phosphorus 3.1 Magnesium 1.4 L Iron TIBC Iron Saturation Transferrin Ferritin Total Bilirubin 0.3 AST 14 ALT 10 Alkaline Phosphatase 98 Total Protein 6.1 L Albumin 3.3 L Globulin 2.8 Albumin/Globulin Ratio 1.2 Vitamin B12 Folate TSH 3rd Generation Blood Type Blood Type Recheck Antibody Screen Crossmatch ([facility]) A&P - Gastroenterology Assessment/Plan (1) Anemia: Plan -Iron studies show likely early iron deficiency. The patient is not having any overt GI bleeding and does not need any urgent endoscopic evaluation. -Recommend obtaining prior GI workup from [facility] -I recommend continuing his PPI -Recommend avoiding NSAIDs besides his 81 mg aspirin if for secondary prevention -He can follow-up with our nurse practitioner nonurgently after his current acute presentation has resolved and discharge and obtaining previous GI workup to see if he needs further GI evaluation for his anemia as this appears chronic andhe is essentially at baseline or he can follow-up with his previous GI team at [facility] Thank you for this consult, little further to add from a GI standpoint. I will peripherally follow pending discharge. Documented By: Mike Bulreson MD 03/05/24 0932 Signed By: <Electronically signed by Mike Burleson MD> 03/05/24 7709 [facility] Work Phone: [phone] Consult note Author Luther Dozier [facility] March 04, 2024 12:57pm Note Date/Time March 04, 2024 12:57pm [facility] [address] [place] [address] Neurology Consult Note Signed Patient: Solomon Pickard SR MR#: [id number] : 1965 Acct:[id number] Age/Sex: 58 / M Adm Date: 4 Loc: Room: [address] [place] [address] Type: ADM INOo Attending Dr: João Powell MD Copies to: DO Jenaro Freeman DO Mohamad Akil, MD~ HPI Consult Date: 03/04/24 Leather Shaver: Luther Dozier DO [facility] Medical History Vitamin D deficiency 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 Restless legs syndrome Peripheral vascular disease Peripheral edema Memory changes Lung nodule Insulin long-term use Insomnia Hypotestosteronemia Hypertensive chronic kidney disease with stage 1 through stage 4 chronic kidney disease, or unspecified chronic kidney disease Headache Gout GERD (gastroesophageal reflux disease) Erectile dysfunction Contracture of hand Claudication of both lower extremities Cigarette nicotine dependence with nicotine-induced disorder Bladder mass Atrial fibrillation Atherosclerotic heart disease of [place] coronary artery with unspecified angina pectoris Anxiety Hx of exercise stress test Family history of premature CAD Reports mother had quadruple bypass at age of 45 Crescendo angina Leg edema Dyslipidemia Chest pain in adult Myocardial infarction mild Fibromyalgia Chronic back pain Sleep apnea Neuropathy Renal failure Cataract Peripheral artery disease Heart disease Hyperlipidemia Diabetes Hypertension Surgical History History of artificial lens replacement Hx of cardiac cath History of carpal tunnel release of both wrists History of angioplasty left lower extremity 2015,2018 History of colonoscopy 01/25/2019 S/P repair of hydrocele H/O arthroscopy of left knee History of carpal tunnel surgery of right wrist History of carpal tunnel surgery of left wrist Hx of appendectomy H/O heart artery stent 07/26/2015 Family History Mother Heart disease PAD (peripheral artery disease) Father Grandparent Legacy FamHx Relation: Maternal Grand Father Grandparent Legacy FamHx Relation: Maternal Grand Mother Mother Heart disease Social History Smoking Status: Current every day smoker Tobacco Type: cigarettes Substance Use Type: None Social History Comments: [facility] Meds Medications and Allergies Allergies acetaminophen [From Percocet] Allergy (Unknown, Verified 03/03/24 13:45) Vomiting oxycodone [From Percocet] Allergy (Unknown, Verified 03/03/24 13:45) Vomiting Penicillins Allergy (Unknown, Verified 03/03/24 13:45) Anaphylaxis latex Allergy (Verified 03/03/24 17:53) Unknown Reaction Home Medications aspirin 81 mg chewable tablet 81 mg PO DAILY 04/01/18 [History Confirmed 03/03/24] glimepiride 2 mg tablet 2 mg PO BID 04/01/18 [History Confirmed 03/03/24] albuterol sulfate 90 mcg/actuation aerosol inhaler (ProAir HFA) 2 puff inhalation Q6HR PRN Shortness Of Breath 06/28/19 [History Confirmed 03/03/24] atorvastatin 80 mg tablet 80 mg PO DAILY 08/08/19 [History Confirmed 03/03/24] amitriptyline 25 mg tablet 100 mg PO DAILY 07/12/23 [History Confirmed 03/03/24] dulaglutide 0.75 mg/0.5 mL subcutaneous pen injector (Trulicity) 0.75 mg subcut QWEEK 07/12/23 [History Confirmed 03/03/24] empagliflozin 10 mg tablet (Jardiance) 10 mg PO DAILY 07/12/23 [History Confirmed 03/03/24] isosorbide mononitrate 30 mg tablet,extended release 24 hr 30 mg PO DAILY 07/12/23 [History Confirmed 03/03/24] nitroglycerin 0.4 mg sublingual tablet (Nitrostat) 0.4 mg sublingual Q5-15M PRN chest pain 07/12/23 [History Confirmed 03/03/24] rimegepant 75 mg disintegrating tablet (Nurtec ODT) 75 mg PO DAILY PRN migraine headache 07/12/23 [History Confirmed 03/03/24] tamsulosin 0.4 mg capsule 0.4 mg PO BID 07/12/23 [History Confirmed 03/03/24] valsartan 160 mg-hydrochlorothiazide 12.5 mg tablet 1 tab PO DAILY 07/12/23 [History Confirmed 03/03/24] omeprazole 40 mg capsule,delayed release 40 mg PO DAILY #90 caps 09/27/23 [Rx Confirmed 03/03/24] pregabalin 200 mg capsule (Lyrica) 200 mg PO TID 90 days #270 caps 12/05/23 [Rx Confirmed 03/03/24] metoprolol tartrate 100 mg tablet 50 mg (1/2 x 100 mg) PO BID #180 tabs 12/25/23[Rx Confirmed 03/03/24] flash glucose scanning reader (Max Rumpus Pedro 2 [place]) #1 ea 12/28/23 [Rx Confirmed 03/03/24] flash glucose sensor (CrescentratingStyle Pedro 2 Sensor kit) #1 ea 12/28/23 [Rx Confirmed 03/03/24] clopidogrel 75 mg tablet (Plavix) 75 mg PO DAILY #90 tabs 01/03/24 [Rx Confirmed 03/03/24] metformin 1,000 mg tablet 1,000 mg PO BID 90 days #180 tabs 01/03/24 [Rx Confirmed 03/03/24] ropinirole 1 mg tablet 1 mg PO TID #240 tabs 01/24/24 [Rx Confirmed 03/03/24] baclofen 10 mg tablet 10 mg PO Q6HR PRN muscle spasm 03/03/24 [History Confirmed 03/03/24] furosemide 20 mg tablet (Lasix) 40 mg PO QAM 03/03/24 [History Confirmed 03/03/24] insulin glargine 100 unit/mL (3 mL) subcutaneous pen (Basaglar KwikPen U-100 Insulin) 35 unit subcut QAM 03/03/24 [History Confirmed 03/03/24] insulin lispro 100 unit/mL subcutaneous pen (Humalog KwikPen (U-100) Insulin) 1 sliding scale dose subcut DIRECTED 03/03/24 [History Confirmed 03/03/24] ipratropium bromide 17 mcg/actuation HFA aerosol inhaler (Atrovent HFA) 2 inh inhalation TID 03/03/24 [History Confirmed 03/03/24] nutritional supplements (Nutra Pro High Protein oral powder) 1 ea PO BID 03/03/24 [History Confirmed 03/03/24] oxycodone 10 mg tablet 10 mg PO Q6HR PRN pain 03/03/24 [History Confirmed 03/03/24] polyethylene glycol 3350 17 gram/dose oral powder (ClearLax) 17 g PO DAILY 03/03/24 [History Confirmed 03/03/24] sennosides 8.6 mg tablet (Senna Laxative) 8.6 mg PO BID 03/03/24 [History Confirmed 03/03/24] tiotropium bromide 18 mcg capsule with inhalation device (Spiriva with HandiHaler) 1 cap inhalation DAILY 03/03/24 [History Confirmed 03/03/24] Exam Physical Exam Vital Signs: Temp Pulse Resp BP Pulse Ox O2 Del Method 97.9 F 90 18 111/71 100 Room Air 03/04/24 04:00 03/04/24 06:40 03/04/24 04:00 03/04/24 04:00 03/04/24 04:00 03/04/24 04:00 Results - Neuro Laboratory Findings 03/04/24 05:42 03/04/24 05:42 Diagnostic Findings Imaging/Impressions: ITS Impressions Chest X-Ray 03/03/24 13:44 IMPRESSION: No acute process. Impression dictated by: Sudeep Lind M.D.03/03/2024 3:05 PM Dictation Location: [place] [address] Abdomen/Pelvis CT 03/03/24 14:19 IMPRESSION: No acute findings. Moderate constipation. Impression dictated by: Sudeep Lind M.D.03/03/2024 3:01 PM Dictation Location: [facility] Head CT 03/03/24 16:59 IMPRESSION: No acute findings. Impression dictated by: Sudeep Lind M.D.03/03/2024 5:50 PM Dictation Location: [place] [address] Assessment/Plan (1) Syncope: Qualifiers: Syncope type: unspecified Qualified Code(s): R55 - Syncope and collapse Plan CONSULT REASON: Syncope HPI: 58-year-old man. Significant bodily vasculopathy, probably secondary to diabetes. History of coronary artery disease requiring percutaneous intervention, peripheral vascular disease, type 2 diabetes, hypertension, severediabetic polyneuropathy, nonhealing right lower extremity wounds now status postright below the knee amputation about 3 weeks ago at [facility]. He was feeling lightheaded every time he was upright, transferring onto his electric scooter or just trying to stand. He would feel lightheaded and then feel like he was going to fall forward. I guess there were some mentation changes associated with when he was symptomatic from the presyncope. He had been told that his blood sugar was low, thinks it was as low as 70 but no lower. His hands would be shaky with these episodes. He may have completely syncopized once. In the emergency department his blood pressure was 92/59 and it improved from they are with normal saline bolus. Hemoglobin was 7.8. BUN and creatinine wereincreased suggesting hypovolemia. Troponin was normal. Home medications include aspirin 81 mg daily, glimepiride, atorvastatin 80 mg daily, amitriptyline 100 mg nightly, valsartan?hydrochlorothiazide, rimegepant, empagliflozin, dulaglutide, tamsulosin 0.4 mg twice daily, omeprazole, pregabalin 200 mg 3 times daily, clopidogrel 75 mg daily, metoprolol, ropinirole1 mg 3 times daily, baclofen, furosemide, oxycodone, among others EXAMINATION: In no distress. Right below the knee amputation, stapled. Remaining limbs seemwell-perfused. No significant edema. Normal work of breathing. Affect normal. Patient is alert and generally oriented. Attention normal. Speech is fluent and nondysarthric. Pupils are equal and reactive. Ocular motility is full. No nystagmus. Facial sensation is normal. Hearing is normal. Facial strength is normal. Tongue is midline. Aside from the distal right lower extremity that is nonexistent and cannot be tested, muscle bulk, tone, and strength are normal. No significant tremors at the time of my encounter. Reflexes trace throughout. Light touch is remains intact. He has no pinprick or vibratory sensation distal to elbows in bilateral upper extremities and distal to mid thighs and bilateral lower extremities. No limb ataxia. DATA REVIEW: -BUN 36, creatinine 1.83, estimated GFR 42 -CT head nonacute ASSESSMENT: 58-year-old man with severe diabetic polyneuropathy and vasculopathy. Presents after positional presyncope and a syncopal event. He very likely has an underlying autonomic component to his neuropathy. He was hypovolemic and his blood pressure was significantly low. Home medications include a diuretic and an alpha-lamont and beta-lamont. And he is severely anemic with his most recent hemoglobin only 7.4. Do not suspect a cerebrovascular syndrome. Do not suspect seizure. I did not notice any significant tremors at the time of my encounter. He might have orthostatic tremulousness. And being on more pregabalin then your kidneys can handle can make a person have tremors or other abnormal movements. PLAN: 1. Looks like tamsulosin is currently held. I would go without this one if possible. 2. Furosemide is currently held. Metoprolol appears to be held as well. 3. The home pregabalin 200 mg 3 times daily is currently held. With his renal function, if he needs to go back on the pregabalin then it should probably be more like 100 mg 3 times daily maximum. 4. Routine EEG is pending 5. MRI brain with MRA head pending 6. Carotid ultrasound studies pending 7. Transthoracic echocardiogram pending Documented By: Luther Dozier DO 03/04/24 1240 Signed By: <Electronically signed by Luther Dozier DO> 03/04/24 1257 [facility] Work Phone: 1(605) 933-375709-30-2024 Progress note Author João Powell [facility] March 04, 2024 11:53am Note Date/Time March 04, 2024 11:46am [facility] [address] [place] [address] Hospitalist Progress Note Signed Patient: Solomon Pickard SR MR#: [id number] : 1965 Acct:[id number] Age/Sex: 58 / M Adm Date: 4 Loc: Room: [address] [place] [address] Type: ADM INOo Attending Dr: João Powell MD Copies to: ~ Date of Service: 03/04/2024 Subjective Subjective Narrative: Patient seen examined bedside. He states that he is feeling better and denies dizziness today. He is to receive 1 unit of packed RBCs today as per plan yesterday. Neurology consulted and MRI brain will be done today Exam Physical Exam Vital Signs: Temp Pulse Resp BP Pulse Ox O2 Del Method 97.9 F 90 18 111/71 100 Room Air 03/04/24 04:00 03/04/24 06:40 03/04/24 04:00 03/04/24 04:00 03/04/24 04:00 03/04/24 04:00 Narrative: General: Alert and oriented x3, lying in bed comfortably, still ill appearing, not in acute distress, calm, and cooperative HEENT: Pale conjunctiva with PERRLA, no lymphadenopathy, no thyromegaly, neck issupple Chest: Good bilateral air entry, no wheezes or crackles, saturating 97% on RA CVS: Normal S1 and S2, no murmurs Abdomen: Hard, there is some fullness on exam with poorly localized tenderness on palpation, no reboud tenderness Extremities: Right BKA the stump has some erythema but I could not feel any collection or swelling, left lower extremity showing signs of neuropathy/claudication with poor hair distribution and faint DP and PT pulses Neuro: Alert and oriented x3, following commands, no focal motor or sensory deficits He has resting tremors that are made worse as he tries to use his hands reachingout to things Objective Lab Results 03/04/24 05:42 03/04/24 05:42 Microbiology Results Microbiology 03/03/24 14:37 Nasopharyngeal SARS-CoV-2, Influenza & RSV (PCR) - Final Meds Allergies and Active Meds Allergies acetaminophen [From Percocet] Allergy (Unknown, Verified 03/03/24 13:45) Vomiting oxycodone [From Percocet] Allergy (Unknown, Verified 03/03/24 13:45) Vomiting Penicillins Allergy (Unknown, Verified 03/03/24 13:45) Anaphylaxis latex Allergy (Verified 03/03/24 17:53) Unknown Reaction Active Meds: Active Medications Generic Name Dose Route Start Last Admin Trade Name Freq PRN Reason Stop Dose Admin Albuterol 2 puff 03/03/24 22:50 Albuterol Hfa 60 Puff/8 Gram Inhaler INHALATION 03/03/25 22:49 Q6H PRN Shortness Of Breath Aspirin 81 mg 03/04/24 09:00 03/04/24 09:09 Aspirin 81 Mg Tab.Chew PO 03/04/25 08:59 Not Given DAILY SATISH Baclofen 10 mg 03/03/24 22:50 09/30/24 05:31 Baclofen 10 Mg Tablet PO 03/03/25 22:49 10 mg Q6H PRN Administration muscle spasm Heparin Sodium (Porcine) 5,000 unit 03/04/24 06:00 03/04/24 05:31 Heparin 5,000 Unit/Ml Vial SUBCUT 03/04/25 05:59 5,000 unit Q8HR SATISH Administration Sodium Chloride 1,000 mls @ 60 mls/hr 03/03/24 18:00 03/04/24 10:27 0.9% Sodium Chloride 1,000 Ml IV 03/03/25 17:59 60 mls/hr .[id number] SATISH Administration Sodium Chloride 500 mls @ 20 mls/hr 03/04/24 09:29 0.9 % Sodium Chloride IV 03/05/24 09:28 PROTOCOL PRN BLOOD TRANSFUSION Ipratropium [place] 0.5 mg 03/04/24 09:00 03/04/24 10:47 Ipratropium [place] 0.5 Mg/2.5 Ml Vial.Neb INHALATION 03/04/25 08:59 0.5 mg QID SATISH Administration Midazolam HCl 1 mg 03/04/24 08:45 Midazolam/Pf 2 Mg/2 Ml Vial IM ONCE PRN pre-med MRI Rimegepant [Nurtec 75 mg 03/03/24 22:50 Odt] 75 Mg Tablet, PO 03/03/25 22:49 Disintegrating DAILY PRN migraine headache Oxycodone HCl 10 mg 03/03/24 23:22 03/04/24 05:31 Oxycodone Ir 5 Mg Tablet PO 10 mg Q6HR PRN Administration pain Pantoprazole Sodium 40 mg 03/04/24 09:00 03/04/24 09:10 Pantoprazole 40 Mg Tablet. PO 03/04/25 08:59 Not Given BID SATISH Polyethylene Glycol 17 gm 03/04/24 09:00 03/04/24 09:10 Polyethylene Glycol 3350 17 Gm Powd.Pack PO 03/04/25 08:59 Not Given DAILY SATISH Ropinirole HCl 1 mg 03/04/24 09:00 03/04/24 09:10 Ropinirole 1 Mg Tablet PO 03/04/25 08:59 Not Given TID SATISH Sennosides 8.6 mg 03/04/24 09:00 03/04/24 09:10 Sennosides 8.6 Mg Tablet PO 03/04/25 08:59 Not Given BID SATISH Sodium Chloride 0 ml 03/03/24 13:44 Sodium Chloride 0.9 % 10 Ml Syringe IV-PUSH 03/03/25 13:43 PRN PRN Flush Sodium Chloride 0 ml 03/03/24 13:48 Sodium Chloride 0.9 % 10 Ml Syringe IV-PUSH 03/03/25 13:47 PRN PRN Flush Sodium Chloride 10 ml 03/03/24 17:00 03/04/24 09:10 Sodium Chloride 0.9 % 10 Ml Syringe IV-PUSH 03/03/25 16:59 Not Given Q8H SATISH A&P - Hospitalist Assessment/Plan (1) Restless legs syndrome: (2) GERD (gastroesophageal reflux disease): (3) Cigarette nicotine dependence with nicotine-induced disorder: (4) Atrial fibrillation: (5) Chronic back pain: (6) Hyperlipidemia: (7) Hypertension: (8) Chronic kidney disease: (9) 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: (10) CAD (coronary artery disease): (11) Diabetes: (12) Syncope: Plan Syncope, likely in the setting of autonomic neuropathy Medication side effect Rule out seizure (less likely) Rule out cardiogenic causes (also I believe is less likely) Also could be due to autonomic neuropathy from medications and type 2 diabetes ROEL on CKD in the setting of dehydration Tremors likely due to medication side effects Symptomatic Iron deficiency Anemia, will need to rule out hemorrhagic shock -Obtain occult blood, if positive will consult GI -Patient will be in patient's need of observation -Patient received 1 unit of packed RBCs today, will repeat CBC after transfusion -Neurology consulted, MRI brain ordered, will follow recommendation of the results of the MRI -CT head was negative for acute pathology -Will continue with IV hydration -Will review his medications and adjust accordingly, I held Amitriptyline, and his BP medications -Obtain EEG -I started correctional insulin plan 1, as his blood glucose was a little elevated, continue to follow Full code Omeprazole PO for DVT PPx HSQ for DVT PPx Activity as tolerated I discussed the plan of plan with the patient at bedside. They understand and agree with this plan of management Time Spent With Patient (min): 45 Documented By: João Powell MD 03/04/24 1140 Signed By: <Electronically signed by João Powell MD> 03/04/24 1153 [facility] Work Phone: 1(872) 247-110309-30-2024 History and physical note Author João Powell [facility] March 03, 2024 10:48pm Note Date/Time March 03, 2024 5:55pm [facility] [address] [place] [address] Hospitalist H&P Signed Patient: Solomon Pickard SR MR#: [id number] : 1965 Acct:[id number] Age/Sex: 58 / M Adm Date: 4 Loc: Room: [address] [place] [address] Type: ADM INOo Attending Dr: João Powell MD Copies to: Jenaro Lynch,DO João Powell MD~ HPI DATE OF EXAMINATION: 03/03/24 CHIEF COMPLAINT: passing out HISTORY OF PRESENT ILLNESS: Patient is a 58-year-old male with past medical's of coronary disease and PCI, PVD, type 2 diabetes, HTN, Heart failure as per the chart (could not specify hisEF or any recent echo on chart) diabetic neuropathy status post right BKA recently at [facility]. He presents today with episodes of lightheadedness followed by altered mentation described as slightly compressible worse and then passing out for seconds and then waking up groggy, with some sort of a probing of the eyes described as partial as per his daughter who witnessed this episode,however no drooling of saliva or loss of urine or stool involuntarily. As per the ED attending and the patient blood pressure was in the 70s (systolic), and his sugar was low however did not tell me exact number. Is the first time this happens him, and he also started having bilateral hand tremors yesterday as per his . He does complain of abdominal pain however no nausea no vomiting no change in bowel habits or urinary habits. In the ED, his blood pressure was 92/59 later improved with 1 L bolus of NS. Hewas not tachycardic. His CBC showed hemoglobin 7.8 which is a little less than his last number of 9.1 on February 08, 2024 however close to his baseline on theprevious visit. His MCV was 69 which is compatible iron deficiency anemia. He also had platelets of 452 and his white count was normal. He did have worseningin his kidney function with a BUN of 1.97 from 1.84 few weeks ago as well as increasing BUN to 46 from 21 also 3 weeks ago and the patient was relatively dehydrated exam. His UA showed glucosuria however not significant. His troponin x 2 were negative his EKG was not significant for any acute ischemic pathology. Decision was made to observe this patient under hospitalist service for further workup and management Review of Systems Review of Systems All other systems reviewed & are negative unless noted below or in HPI [facility] Medical History Vitamin D deficiency 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 Restless legs syndrome Peripheral vascular disease Peripheral edema Memory changes Lung nodule Insulin long-term use Insomnia Hypotestosteronemia Hypertensive chronic kidney disease with stage 1 through stage 4 chronic kidney disease, or unspecified chronic kidney disease Headache Gout GERD (gastroesophageal reflux disease) Erectile dysfunction Contracture of hand Claudication of both lower extremities Cigarette nicotine dependence with nicotine-induced disorder Bladder mass Atrial fibrillation Atherosclerotic heart disease of [place] coronary artery with unspecified angina pectoris Anxiety Hx of exercise stress test Family history of premature CAD Reports mother had quadruple bypass at age of 45 Crescendo angina Leg edema Dyslipidemia Chest pain in adult Myocardial infarction mild Fibromyalgia Chronic back pain Sleep apnea Neuropathy Renal failure Cataract Peripheral artery disease Heart disease Hyperlipidemia Diabetes Hypertension Surgical History History of artificial lens replacement Hx of cardiac cath History of carpal tunnel release of both wrists History of angioplasty left lower extremity History of colonoscopy 01/25/2019 S/P repair of hydrocele H/O arthroscopy of left knee History of carpal tunnel surgery of right wrist History of carpal tunnel surgery of left wrist Hx of appendectomy H/O heart artery stent 07/26/2015 Family History Mother Heart disease PAD (peripheral artery disease) Father Grandparent Legacy FamHx Relation: Maternal Grand Father Grandparent Legacy FamHx Relation: Maternal Grand Mother Mother Heart disease Social History Smoking Status: Current every day smoker Tobacco Type: cigarettes Substance Use Type: None Meds Medications and Allergies Allergies acetaminophen [From Percocet] Allergy (Unknown, Verified 03/03/24 13:45) Vomiting oxycodone [From Percocet] Allergy (Unknown, Verified 03/03/24 13:45) Vomiting Penicillins Allergy (Unknown, Verified 03/03/24 13:45) Anaphylaxis latex Allergy (Verified 03/03/24 17:53) Unknown Reaction Home Medications aspirin 81 mg chewable tablet 81 mg PO DAILY 04/01/18 [History Confirmed 03/03/24] glimepiride 2 mg tablet 2 mg PO BID 04/01/18 [History Confirmed 03/03/24] albuterol sulfate 90 mcg/actuation aerosol inhaler (ProAir HFA) 2 puff inhalation Q6HR PRN Shortness Of Breath 06/28/19 [History Confirmed 03/03/24] atorvastatin 80 mg tablet 80 mg PO DAILY 08/08/19 [History Confirmed 03/03/24] amitriptyline 25 mg tablet 100 mg PO DAILY 07/12/23 [History Confirmed 03/03/24] dulaglutide 0.75 mg/0.5 mL subcutaneous pen injector (Trulicity) 0.75 mg subcut QWEEK 07/12/23 [History Confirmed 03/03/24] empagliflozin 10 mg tablet (Jardiance) 10 mg PO DAILY 07/12/23 [History Confirmed 03/03/24] isosorbide mononitrate 30 mg tablet,extended release 24 hr 30 mg PO DAILY 07/12/23 [History Confirmed 03/03/24] nitroglycerin 0.4 mg sublingual tablet (Nitrostat) 0.4 mg sublingual Q5-15M PRN chest pain 07/12/23 [History Confirmed 03/03/24] rimegepant 75 mg disintegrating tablet (Nurtec ODT) 75 mg PO DAILY PRN migraine headache 07/12/23 [History Confirmed 03/03/24] tamsulosin 0.4 mg capsule 0.4 mg PO BID 07/12/23 [History Confirmed 03/03/24] valsartan 160 mg-hydrochlorothiazide 12.5 mg tablet 1 tab PO DAILY 07/12/23 [History Confirmed 03/03/24] omeprazole 40 mg capsule,delayed release 40 mg PO DAILY #90 caps 09/27/23 [Rx Confirmed 03/03/24] pregabalin 200 mg capsule (Lyrica) 200 mg PO TID 90 days #270 caps 12/05/23 [Rx Confirmed 03/03/24] metoprolol tartrate 100 mg tablet 50 mg (1/2 x 100 mg) PO BID #180 tabs 12/25/23[Rx Confirmed 03/03/24] flash glucose scanning reader (CrescentratingStyle Pedro 2 [place]) #1 ea 12/28/23 [Rx Confirmed 03/03/24] flash glucose sensor (FreeStyle Pedor 2 Sensor kit) #1 ea 12/28/23 [Rx Confirmed 03/03/24] clopidogrel 75 mg tablet (Plavix) 75 mg PO DAILY #90 tabs 01/03/24 [Rx Confirmed 03/03/24] metformin 1,000 mg tablet 1,000 mg PO BID 90 days #180 tabs 01/03/24 [Rx Confirmed 03/03/24] ropinirole 1 mg tablet 1 mg PO TID #240 tabs 01/24/24 [Rx Confirmed 03/03/24] baclofen 10 mg tablet 10 mg PO Q6HR PRN muscle spasm 03/03/24 [History Confirmed 03/03/24] furosemide 20 mg tablet (Lasix) 40 mg PO QAM 03/03/24 [History Confirmed 03/03/24] insulin glargine 100 unit/mL (3 mL) subcutaneous pen (Basaglar KwikPen U-100 Insulin) 35 unit subcut QAM 03/03/24 [History Confirmed 03/03/24] insulin lispro 100 unit/mL subcutaneous pen (Humalog KwikPen (U-100) Insulin) 1 sliding scale dose subcut DIRECTED 03/03/24 [History Confirmed 03/03/24] ipratropium bromide 17 mcg/actuation HFA aerosol inhaler (Atrovent HFA) 2 inh inhalation TID 03/03/24 [History Confirmed 03/03/24] nutritional supplements (Nutra Pro High Protein oral powder) 1 ea PO BID 03/03/24 [History Confirmed 03/03/24] oxycodone 10 mg tablet 10 mg PO Q6HR PRN pain 03/03/24 [History Confirmed 03/03/24] polyethylene glycol 3350 17 gram/dose oral powder (ClearLax) 17 g PO DAILY 03/03/24 [History Confirmed 03/03/24] sennosides 8.6 mg tablet (Senna Laxative) 8.6 mg PO BID 03/03/24 [History Confirmed 03/03/24] tiotropium bromide 18 mcg capsule with inhalation device (Spiriva with HandiHaler) 1 cap inhalation DAILY 03/03/24 [History Confirmed 03/03/24] Exam Physical Exam Vital Signs: Temp Pulse Resp BP Pulse Ox O2 Del Method 97.9 F 86 20 100/67 100 Room Air 03/03/24 13:45 03/03/24 17:00 03/03/24 17:00 03/03/24 17:00 03/03/24 17:00 03/03/24 17:00 Narrative: General: Alert and oriented x3, lying in bed comfortably, not in acute distress,calm, and cooperative HEENT: Pale conjunctiva with PERRLA, no lymphadenopathy, no thyromegaly, neck issupple Chest: Good bilateral air entry, no wheezes or crackles, saturating 97% on RA CVS: Normal S1 and S2, no murmurs Abdomen: Hard, there is some fullness on exam with poorly localized tenderness on palpation, no reboud tenderness Extremities: Right BKA the stump has some erythema but I could not feel any collection or swelling, left lower extremity showing signs of neuropathy/claudication with poor hair distribution and faint DP and PT pulses Neuro: Alert and oriented x3, following commands, no focal motor or sensory deficits He has resting tremors that are made worse as he tries to use his hands reachingout to things Results - Hospitalist H&P Lab Results Labs: Laboratory Last Values Corrected WBC 7.2 X10E3/uL (4.1-10.5) 03/03/24 14:00 Uncorrected WBC Count 7.2 x10E3/uL (4.1-10.5) 03/03/24 14:00 RBC 3.58 X10E6/uL (3.90-5.60) L 03/03/24 14:00 Hgb 7.8 g/dL (13.0-17.0) L 03/03/24 14:00 Hct 24.7 % (38.8-50.0) L 03/03/24 14:00 MCV 69.0 fl (83.5-101) L 03/03/24 14:00 MCH 21.8 pg (27.5-35.2) L 03/03/24 14:00 MCHC 31.6 g/dL (32.5-35.6) L 03/03/24 14:00 RDW 20.9 % (12.0-14.8) H 03/03/24 14:00 Plt Count 452 x10E3/uL (150-450) H 03/03/24 14:00 MPV 7.8 fl (6.6-10.1) 03/03/24 14:00 Neut % (Auto) 65.6 % (.) 03/03/24 14:00 Lymph % (Auto) 18.2 % (.) 03/03/24 14:00 Wells % (Auto) 11.3 % (.) 03/03/24 14:00 Eos % (Auto) 3.2 % (.) 03/03/24 14:00 Baso % (Auto) 1.7 % (.) 03/03/24 14:00 Nucleat RBC Rel Count 0.2 /100 WBC (0-0.5) 03/03/24 14:00 Neut # (Auto) 4.7 x10E3/uL (1.8-7.7) 03/03/24 14:00 Lymph # (Auto) 1.3 x10E3/uL (1.00-4.8) 03/03/24 14:00 Wells # (Auto) 0.8 x10E3/uL (0.0-0.8) 03/03/24 14:00 Eos # (Auto) 0.2 x10E3/uL (0.0-0.45) 03/03/24 14:00 Baso # (Auto) 0.1 x10E3/uL (0.0-0.2) 03/03/24 14:00 Monocyte Dist Width 17.33 % (0.00-20.00) 03/03/24 14:00 Platelet Estimate Increased (Normal) 03/03/24 14:00 Plt Morphology Comment Normal (Normal) 03/03/24 14:00 RBC Morphology N/A 03/03/24 14:00 Polychromasia Slight 03/03/24 14:00 Hypochromasia Moderate 03/03/24 14:00 Anisocytosis Marked 03/03/24 14:00 Microcytosis Marked 03/03/24 14:00 PHA Creatinine Clear 44.86 03/03/24 14:00 Sodium 138 mmol/L (136-145) 03/03/24 14:00 Potassium 3.9 mmol/L (3.5-5.1) 03/03/24 14:00 Chloride 103 mmol/L (98-107) 03/03/24 14:00 Carbon Dioxide 24.3 mmol/L (21.0-31.0) 03/03/24 14:00 Anion Gap 14.6 mEq/L (6.0-15.0) 03/03/24 14:00 BUN 46 mg/dL (7-25) H 03/03/24 14:00 Creatinine 1.97 mg/dL (0.70-1.30) H 03/03/24 14:00 Est GFR (CKD-EPI) 38.669 mL/Min 03/03/24 14:00 Glucose 142 mg/dL (70-100) H 03/03/24 14:00 POC Glucose 167 mg/dl 03/03/24 13:51 Calcium 8.6 mg/dL (8.6-10.3) 03/03/24 14:00 Troponin I High Sens 4.5 pg/mL (0.0-20.0) 03/03/24 15:50 B-Natriuretic Peptide 23.0 pg/mL (5-100) 03/03/24 14:00 Urine Color Colorless (Yellow) 03/03/24 14:35 Urine Appearance Clear (Clear) 03/03/24 14:35 Urine pH 5.0 (5.0-9.0) 03/03/24 14:35 Ur Specific [place] 1.009 (1.001-1.030) 03/03/24 14:35 Urine Protein Negative mg/dL (Negative) 03/03/24 14:35 Urine Glucose (UA) 500 mg/dL (Normal) H 03/03/24 14:35 Urine Ketones Negative (Negative) 03/03/24 14:35 Urine Occult Blood Negative (Negative) 03/03/24 14:35 Urine Nitrite Negative (Negative) 03/03/24 14:35 Urine Bilirubin Negative (Negative) 03/03/24 14:35 Urine Urobilinogen Normal mg/dL (Normal) 03/03/24 14:35 Ur Leukocyte Esterase Negative (Negative) 03/03/24 14:35 SARS-CoV-2 Rap RNA(RT-PCR) Negative (Negative) 03/03/24 14:37 Microbiology Results Micro: Microbiology - Results from entire visit 03/03/24 14:37 Nasopharyngeal SARS-CoV-2, Influenza & RSV (PCR) - Final Assessment & Plan Assessment/Plan (1) Restless legs syndrome: (2) GERD (gastroesophageal reflux disease): (3) Cigarette nicotine dependence with nicotine-induced disorder: (4) Atrial fibrillation: (5) Chronic back pain: (6) Hyperlipidemia: (7) Hypertension: (8) Chronic kidney disease: (9) 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: (10) CAD (coronary artery disease): (11) Diabetes: (12) Syncope: Plan Syncope, likely in the setting of autonomic neuropathy Medication side effect Rule out seizure (less likely) Rule out cardiogenic causes (also I believe is less likely) Also could be due to autonomic neuropathy from medications and type 2 diabetes ROEL on CKD in the setting of dehydration Tremors likely due to medication side effects Symptomatic Iron deficiency Anemia -Pt presented with the above HPI, physical exam findings, lab and imaging results -In the ED, CT abdomen pelvis showed constipation, and chest xray was negative for an acute pathology -CT head without contrast showed: -His BP improved with IV hydration -Observe in Medical floor with telemetry -Obtain echo -Obtain neuro consult -Obtain MRI brain without contrast -Start gently hydration at 60 ml/hr for the next 12 hours -Will review his medications and adjust accordingly, I held Amitriptyline, and his BP medications -Obtain anemia workup and may give 1 unit of PRBCs after that -Obtain EEG -I held his diabetes medications for now, will check Blood glucose q3 hours and reassess accordingly Full code Omeprazole PO for DVT PPx HSQ for DVT PPx Activity as tolerated I discussed the plan of plan with the patient and his family members, his and his daughter at bedside. They understand and agree with this plan of management IP vs OBS Justification Based on differential dx, clinical care plan, and risk of adverse events, if untreated, in my clinical judgement this patient requires an acute care setting as: OBSERVATION because of an expectation of an under 2 midnight stay. Estimated length of stay (# of days): 2 Documented By: João Powell MD 03/03/24 1734 Signed By: <Electronically signed by João Powell MD> 03/03/24 7925 [facility] Work Phone: [phone] NoteDischarge Summary Admission and Discharge Information Admit Date/Time:02/12/2024 16:06 Admitting Physician - Padmini Montes MD Consulting Physician - Padmini Montes MD Referring Physician - Padmini Montes MD Admitting Diagnoses: Discharge Order Date Discharge Patient - Ordered -- 02/21/24 14:50:00 EDT, SNF Discharge Diagnoses 1. Hx of right BKA, 02/12/2024 2. Leukocytosis, 02/20/2024 3. Essential hypertension, 02/12/2024 4. Hyperlipidemia, 02/12/2024 5. Anemia, 02/12/2024 6. 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, 02/12/2024 7. Stage 3 chronic kidney disease, 02/14/2024 8. Coronary artery disease, 02/14/2024 9. Tobacco abuse, 02/15/2024 Procedure History BKA - Below knee amputation (02/12/2024), Transmetatarsal amputation of foot (01/08/2024), TURP - Transurethral resection of prostate (04/13/2023), Cystoscopy (02/14/2023), Angiogram, Appendectomy, Bilateral Carpal Tunnel Surgery, Bilateral Eye Surgery, cardiac stents, Cataract extraction and insert ion of intraocular lens, Colonoscopy, Procedure on back. Hospital Course 58-year-old male with past medical history of arthritis, asthma, BPH, fibromyalgia, CAD, RLS, tobacco abuse, diabetes, hypertension, GERD, CHF, was admitted to hospital on 02/11 after patient had elective right BKA. Surgery went well. Per report patient symptoms started after stepping on a sharp object and wound unfortunately ended up being infected and patient does have multiple surgical interventions with nonhealing wound in the past. PT/OT did work with the patient and recommended for SNF. Patient was agreeable. Patient stable at discharge. Med changes Insulin 35 units daily SSI if needed As needed oxycodone every 6 hours Follow-up appointments Dr. Montes 7 to 10 days PCP as needed Discharge time 37 minutes which included extensive conversation with patient about diagnosis and treatment plan. Along with communication with consultants, nursing, case management. Services Consulted Consult to Dietitian Adult - Ordered -- 02/14/24 9:37:37 EDT Physical Exam Vitals & Measurements T: 36.7 ?C(Axillary) TMIN: 36.4 ?C(Axillary) TMAX: 36.8 ?C(Axillary) HR: 70(Monitored) BP: 101/63 SpO2: 100% WT: 89.3 kg Please see progress note Tests Performed CBC w/ Auto Diff -- Results Pending -- Please visit your patient portal for your results or contact your primary care physician. Discharge Plan Discharge Disposition Discharge To, Anticipated II - Acute Rehabilitation Discharged to - Home independently Discharge Medication List Prescriptions oxyCODONE 5 mg Tab, 10 mg= 2 tab(s), Oral, q6hr, PRN tamsulosin 0.4 mg Cap, 0.4 mg= 1 cap(s), Oral, BID, 11 refills Home Amaryl 2 mg Tab, 2 mg= 1 tab(s), Oral, BID amitriptyline 100 mg oral tablet, 100 mg= 1 tab(s), Oral, Once a day (at bedtime) aspirin 81 mg Oral EC Tab, 81 mg= 1 tab(s), Oral, Daily Ensure, 237 mL, Oral, BIDWM furosemide 40 mg Tab, 40 mg= 1 tab(s), Oral, Daily hydrochlorothiazide-valsartan 12.5 mg-160 mg Tab, 1 tab(s), Oral, Daily insulin glargine 100 units/mL SubQ Malaika 10 mL, 35 unit(s), SubCutaneous, Bedtime insulin lispro, 0-10 Unit(s), SubCutaneous, QIDACHS isosorbide mononitrate 30 mg ER Tab, 30 mg= 1 tab(s), Oral, qAM Januvia 100 mg Tab, 100 mg= 1 tab(s), Oral, Daily Jardiance 10 mg oral tablet, 10 mg= 1 tab(s), Oral, qAM Tenzin packet, Oral, BID Lipitor 80 mg Tab, 80 mg= 1 tab(s), Oral, Daily metformin 1000 mg Tab, 1000 mg= 1 tab(s), Oral, BID metoprolol tartrate 100 mg Tab, 50 mg= 0.5 tab(s), Oral, BID nicotine 14 mg/24 hr Transderm ER Film, TransDermal, Daily NitroStat 0.4 mg Tab, 0.4 mg= 1 tab(s), SubLingual, q5min, PRN Nurtec ODT 75 mg oral tablet, disintegrating, 75 mg= 1 tab(s), Oral, q24hr, PRN omeprazole 40 mg Cap-DR, 40 mg= 1 cap(s), Oral, Daily Plavix 75 mg Tab, 75 mg= 1 tab(s), Oral, Daily polyethylene glycol 3350 17 gram packet, 1 EA, Oral, Daily pregabalin 200 mg Cap, 200 mg= 1 cap(s), Oral, TID ProAir HFA, Inhalation, q6hr, PRN ropinirole 1 mg Tab, 1 mg= 1 tab(s), Oral, TID senna 8.6 mg Tab, 8.6 mg= 1 tab(s), Oral, BID Spiriva 18 mcg Cap, 18 mcg= 1 cap(s), Inhalation, Daily Trulicity Pen 0.75 mg/0.5 mL subcutaneous solution, 0.75 mg, SubCutaneous, qWeek Follow-up With When Contact Information JENARO LYNCH DO, [facility] [address] [place] [address]- Additional Instructions: Simon HERRERA, Padmini FMary Within 2 weeks [address] [place] [address]- Additional Instructions: Call for followup appointment Patient Education Living With an AmputationOhiohealth Arthur G[facility], Md, Cancer CenterComment on above:Result Comment: Electronically Signed By: Raulito Gilliland DO\.br\Date and Time Signed: 02/21/24 15:01 [id number] NotePeripheral smear evaluation:[facility], [facility] CenterComment on above:Performed By: #### [id number] #### [facility] [address], [place] [phone] NoteProgress Note-Physician Assessment/Plan Patient is a 58-year-old male with past medical history of DC/CAD, heart failure, GERD, HTN, COPD, insulin-dependent type 2 diabetes, PAD, and nonhealing right foot diabetic wound with osteomyelitis and multiple surgeries who recently underwent a right BKA. He is postop day #9 today. Pending pre-certification and can discharge when pre-CERT comes through 1. Hx of right BKA (Z89.511: Acquired absence of right leg below knee) ? Postop day #9 ? Vascular surgery following ? Pain control: Acetaminophen 975 mg p.o. every 6 hours, pregabalin 200 mg p.o. 3 times daily, oxycodone 10 mg p.o. every 4 hours as needed. Ropinirole. ? Bowel regimen senna twice daily, MiraLAX ? Tenzin twice daily to aid in wound healing Ordered: [facility] Care/Day Straight Fwd 25 Minutes [address]1511 2. Leukocytosis (D72.829: Elevated white blood cell count, unspecified) ? Likely reactive with nausea and vomiting improved 3. Essential hypertension (I10: Essential (primary) hypertension) ? Metoprolol, isosorbide mononitrate, Lasix. Well-controlled. 4. Hyperlipidemia (E78.5: Hyperlipidemia, unspecified) statin 5. Anemia (D64.9: Anemia, unspecified) acute on chronic monitor 6. 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 (E11.42: Type 2 diabetes mellitus with diabetic polyneuropathy) accu checks SSI lantus increased to 35 units on 02/18 7. Stage 3 chronic kidney disease (N18.30: Chronic kidney disease, stage 3 unspecified) baseline 1.5-1.6 8. Coronary artery disease (I25.10: Atherosclerotic heart disease of [place] coronary artery withoutangina pectoris) ? Aspirin, atorvastatin 80 mg p.o. daily, Plavix ? Metoprolol, isosorbide mononitrate, Lasix 9. Tobacco abuse (Z72.0: Tobacco use) ? Counseled on cessation. Nicotine patch. Orders: Capillary Glucose POC CBC w/ Auto Diff Change Attending Subjective Patient seen and examined. resting in bed. no complaints at this time. Objective Vitals & Measurements T: 36.7 ?C(Axillary) TMIN: 36.4 ?C(Axillary) TMAX: 36.9 ?C(Oral) HR: 70(Monitored) BP: 101/63 SpO2:100% WT: 89.3 kg Intake & Output This visit (24 hour periods starting at 07:00 EDT) 02/21/24 * 02/20/24 02/19/24 Total Summary Intake mL 237 474 478 Output mL -- -- -- Fluid Balance 237 474 478 Intake (2) Ensure mL 237 474 474 ondansetron mL -- -- 4 Total 237 474 478 Output (0) Counts (1) Emesis Count -- -- 2 * This column has not completed the indicated time period. Physical Exam General: NAD Skin: Warm, dry Head: No trauma, normocephalic Neck: Trachea midline, supple, negative for JVD Eye: Conjunctive are clear, clear sclera , EOMI ENMT: oral mucosa moist, no lesions or edema nose or external ears Cardiovascular: Regular rate and rhythm, S1-S2 present, negative for murmurs rubs or gallops Respiratory: Lungs clear to auscultation, bilateral symmetric movement, negative for wheezes rales or rhonchi Chest wall: no deformity. Gastrointestinal: Abdomen soft, bowel sounds present, nontender to palpation Back: No tenderness Extremities: Range of motion intact, post op BKA Neurological: awake, alert, speech normal, cranial nerves II through XII intact, no sensory defects, alert and oriented x3 Psychiatric: cooperative, affect appropriate for age, pleasant Lab Results WBC: 12.5 E9/L High (02/21/24 06:02:00) RBC: 3.6 E12/L Low (02/21/24 06:02:00) HGB: 8.1 gm/dL Low (02/21/24 06:02:00) Hct: 25.6 % Low (02/21/24 06:02:00) MCV: 70.7 fL Low (02/21/24 06:02:00) MCH: 22.3 pg Low (02/21/24 06:02:00) MCHC: 31.5 gm/dL (02/21/24 06:02:00) RDW: 21.4 % High (02/21/24 06:02:00) Platelet: 481 E9/L (02/21/24 06:02:00) MPV: 8.6 fL (02/21/24 06:02:00) Neutro Auto: 74.6 % (02/21/24 06:02:00) Lymph Auto: 12.4 % Low (02/21/24 06:02:00) Wells Auto: 8.7 % (02/21/24 06:02:00) Eos Auto: 3.6 % (02/21/24 06:02:00) Basophil Auto: 0.7 % (02/21/24 06:02:00) Neutro Absolute: 9.3 E9/L High (02/21/24 06:02:00) Lymph Absolute: 1.5 E9/L (02/21/24 06:02:00) Wells Absolute: 1.1 E9/L High (02/21/24 06:02:00) Eos Absolute: 0.4 E9/L (02/21/24 06:02:00) Basophil Absolute: 0.1 E9/L (02/21/24 06:02:00) RBC Morph: NORMAL (02/21/24 06:02:00) Microcyte: PRESENT (02/21/24 06:02:00) Hypochromasia: PRESENT (02/21/24 06:02:00) Large Plt: PRESENT (02/21/24 06:02:00) Glucose Lvl: 169 mg/dL (02/21/24 06:02:00) BUN: 26 mg/dL High (02/21/24 06:02:00) Creatinine: 1.8 mg/dL High (02/21/24 06:02:00) eGFR: 43 mL/min/1.73 m2 Low (02/21/24 06:02:00) BUN/Creat Ratio: 14 (02/21/24 06:02:00) Sodium Lvl: 134 mmol/L Low (02/21/24 06:02:00) Potassium Lvl: 3.7 mmol/L (02/21/24 06:02:00) Chloride: 100 mmol/L Low (02/21/24 06:02:00) CO2: 30 mmol/L (02/21/24 06:02:00) AGAP: 8 mEq/L (02/21/24 06:02:00) Calcium Lvl: 8.6 mg/dL Low (02/21/24 06:02:00) Glucose Cap: 177 mg/dL High (02/21/24 10:49: (more content not included)... [facility], [facility] CenterComment on above:Result Comment: Electronically Signed By: Raulito Gilliland DO.livia\Date and Time Signed: 02/21/24 10:56 EDT 02-20-2024 NoteProgress Note-Physician Assessment/Plan Patient is a 58-year-old male with past medical history of DC/CAD, heart failure, GERD, HTN, COPD, insulin-dependent type 2 diabetes, PAD, and nonhealing right foot diabetic wound with osteomyelitis and multiple surgeries who recently underwent a right BKA. He is postop day #8 today. Pending pre-certification and can discharge when pre-CERT comes through 1. Hx of right BKA (Z89.511: Acquired absence of right leg below knee) ? Postop day #8 ? Vascular surgery following ? Pain control: Acetaminophen 975 mg p.o. every 6 hours, pregabalin 200 mg p.o. 3 times daily, oxycodone 10 mg p.o. every 4 hours as needed. Ropinirole. ? Bowel regimen senna twice daily, MiraLAX ? Tenzin twice daily to aid in wound healing Ordered: Basic Metabolic Panel Basic Metabolic Panel CBC w/ Auto Diff CBC w/ Auto Diff eGFR [facility] Care/Day Moderate 35 Minutes 76447 2. Leukocytosis (D72.829: Elevated white blood cell count, unspecified) ? Likely reactive with nausea and vomiting overnight. Will continue to monitor closely. No signs ofinfection of surgical wound. Follow-up a.m. labs. 3. Essential hypertension (I10: Essential (primary) hypertension) ? Metoprolol, isosorbide mononitrate, Lasix. Well-controlled. Ordered: [facility] Care/Day Moderate 35 Minutes 48309 4. Hyperlipidemia (E78.5: Hyperlipidemia, unspecified) ? Statin Ordered: [facility] Care/Day Moderate 35 Minutes 62052 5. Anemia (D64.9: Anemia, unspecified) ? Acute on chronic. Stable postoperatively. Will continue to monitor closely Ordered: Basic Metabolic Panel CBC w/ Auto Diff [facility] Care/Day Moderate 35 Minutes 38761 6. 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 Glimepiride 2 mg p.o. twice daily, glargine 35 units nightly, lispro 5 units with meals, BGT ACHS, sliding scale insulin as needed with meals ?Poorly controlled. Increased glargine to 35 units nightly om 02/18 from 30 units nightly. Ordered: [facility] Care/Day Moderate 35 Minutes 42482 7. Stage 3 chronic kidney disease (N18.30: Chronic kidney disease, stage 3 unspecified) ? Creatinine 1.8. Baseline 1.5-1.6. Monitor closely. Ordered: Basic Metabolic Panel CBC w/ Auto Diff eGFR [facility] Care/Day Moderate 35 Minutes 08435 8. Coronary artery disease (I25.10: Atherosclerotic heart disease of [place] coronary artery withoutangina pectoris) ? Aspirin, atorvastatin 80 mg p.o. daily, Plavix ? Metoprolol, isosorbide mononitrate, Lasix Ordered: [facility] Care/Day Moderate 35 Minutes 72302 9. Tobacco abuse (Z72.0: Tobacco use) ? Counseled on cessation. Nicotine patch. Orders: oxycodone, 10 mg = 2 tab(s), Tab, Oral, q4hr PRN Pain for 5 day(s), Stop date 02/25/24 19:00:00 EDT, Routine, Start date 02/20/24 19:01:00 EDT, 02/20/24 19:01:00 EDT Subjective Had several episodes of nausea and vomiting overnight. Feeling better this morning. Had leukocytosis, do not know if this is reactive with his nausea and vomiting. Will continue to monitor. Denies any fever, chills, redness, swelling or increased pain in his leg. Increasing oxycodone today to have better pain control. Review of Systems Constitutional: no fever, no chills, no sweats, [...] no food allergies, no recurrent infections, no impairedimmunity Additional ROS info: Except as noted in the above Review of Systems and in the History of Present Illness all other systems have been reviewed and are negative or noncontributory. Objective Vitals & Measurements T: 36.8 ?C(Axillary) TMIN: 36.5 ?C(Axillary) TMAX: 37 ?C(Axillary) HR: 78(Monitored) RR: 16 BP: 100/62 SpO2: 98% WT: 89.3 kg Intake & Output This visit (24 hour periods starting at 07:00 EDT) 02/20/24 * 02/19/24 02/18/24 Total Summary Intake mL 474 478 474 Output mL -- -- 3,025 Fluid Balance 474 478 -2,551 Intake (2) Ensure mL 474 474 474 ondansetron mL -- 4 -- Total 474 478 474 Output (1) Urine Voided mL -- -- 3,025 Total -- -- 3,025 Counts (1) Emesis Count -- 2 -- * This column has not completed the indicated time period. (more content not included)...[facility] CenterComment on above:Result Comment: Electronically Signed By: Ben Corrigan III, DO.br\Date and Time Signed: 02/20/24 19:09 [id number] NoteProgress Note-Physician Assessment/Plan Patient is a 58-year-old male with past medical history of DC/CAD, heart failure, GERD, HTN, COPD, insulin-dependent type 2 diabetes, PAD, and nonhealing right foot diabetic wound with osteomyelitis and multiple surgeries who recently underwent a right BKA. He is postop day #7 today. Pending precertification and can discharge when pre-CERT comes there. 1. Hx of right BKA (Z89.511: Acquired absence of right leg below knee) ? Postop day #7 ? Vascular surgery following ? Pain control: Acetaminophen 975 mg p.o. every 6 hours, pregabalin 200 mg p.o. 3 times daily, oxycodone 5 mg p.o. every 4 hours as needed. Ropinirole. ? Bowel regimen senna twice daily, MiraLAX ? Tenzin twice daily to aid in wound healing Ordered: Basic Metabolic Panel CBC w/ Auto Diff [facility] Care/Day Moderate 35 Minutes 56183 2. Essential hypertension (I10: Essential (primary) hypertension) ? Metoprolol, isosorbide mononitrate, Lasix. Well-controlled. Ordered: [facility] Care/Day Moderate 35 Minutes 98690 3. Hyperlipidemia (E78.5: Hyperlipidemia, unspecified) ? Statin Ordered: [facility] Care/Day Moderate 35 Minutes 74364 4. Anemia (D64.9: Anemia, unspecified) ? Acute on chronic. Stable postoperatively. Will continue to monitor closely Ordered: CBC w/ Auto Diff [facility] Care/Day Moderate 35 Minutes 53071 5. 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 Glimepiride 2 mg p.o. twice daily, glargine 30 units nightly, lispro 5 units with meals, BGT ACHS, sliding scale insulin as needed with meals ?Poorly controlled. Will increase glargine to 35 units nightly. Ordered: [facility] Care/Day Moderate 35 Minutes 61968 6. Stage 3 chronic kidney disease (N18.30: Chronic kidney disease, stage 3 unspecified) ? Creatinine 1.7. Baseline 1.5-1.6. Monitor closely. Ordered: Basic Metabolic Panel [facility] Care/Day Moderate 35 Minutes 03414 7. Coronary artery disease (I25.10: Atherosclerotic heart disease of [place] coronary artery withoutangina pectoris) ? Aspirin, atorvastatin 80 mg p.o. daily, Plavix ? Metoprolol, isosorbide mononitrate, Lasix 8. Tobacco abuse (Z72.0: Tobacco use) ? Counseled on cessation. Nicotine patch. Orders: acetaminophen, 975 mg = 3 tab(s), Tab, Oral, q6hr, Routine, Start date 02/19/24 18:00:00 EDT insulin glargine, 35 unit(s) = 0.35 mL, Injection-Insulin, SubCutaneous, Bedtime, Routine, Start date 02/19/24 21:00:00 EDT oxycodone, 5 mg = 1 tab(s), Tab, Oral, q4hr PRN Pain for 5 day(s), Stop date 02/24/24 16:49:00 EDT,Routine, Start date 02/19/24 16:50:00 EDT, 02/19/24 16:50:00 EDT DVT prophylaxis with heparin fifth 1000 units subcutaneously every 8 hours, regular diet, full code Subjective Patient seen sitting up at bedside. Resting comfortably. He states that he has uncontrolled pain however. Modified his pain regimen changed him to having scheduled Tylenol. Continued pregabalin. Now has oxycodone 5 mg every 4 hours as needed. Will make dose adjustments from there. Tolerating diet. Anxious to leave to go to rehab. Dressing clean dry and intact. Review of Systems Constitutional: no fever, no chills, no sweats, [...] no food allergies, no recurrent infections, no impairedimmunity Additional ROS info: Except as noted in the above Review of Systems and in the History of Present Illness all other systems have been reviewed and are negative or noncontributory. Objective Vitals & Measurements T: 36.5 ?C(Axillary) TMIN: 36.5 ?C(Axillary) TMAX: 36.7 ?C(Axillary) HR: 81(Monitored) RR: 18 BP: 116/73 SpO2: 98% WT: 92.2 kg Intake & Output This visit (24 hour periods starting at 07:00 EDT) 02/19/24 * 02/18/24 02/17/24 Total Summary Intake mL 474 474 1,444 Output mL -- 3,025 3,550 Fluid Balance 474 -2,551 -2,106 Intake (2) Ensure mL 474 474 474 Oral Intake mL -- -- 970 Total 474 474 1,444 Output (1) Urine Voided mL -- 3,025 3,550 Total -- 3,025 3,550 Counts (1) Stool Count -- -- 1 * This column has not completed the indicated time period. Physical Exam General: alert, no (more content not included)...[facility] Comment on above:Result Comment: Electronically Signed By: Ben Corrigan III, DO\.br\Date and Time Signed: 02/19/24 17:00 [id number] NoteProgress Note-Physician Patient: SOLOMON PICKARD SR Age: 58 years Sex: Male : 1965 Associated Diagnoses: None Author: MD Solomon Ahmad F Postoperative Information Postoperative disposition: Postoperative disposition: To PACU. Optimetrix number: Optimetrix number [id number]. Anesthetic utilized: General. Health Status Allergies: Allergic Reactions (Selected) Mild Latex- Rash and itching. Severity Not Documented Penicillin G benzathine- No reactions were documented. Penicillins- Anaphylactoid reaction. Physical Examination VS/Measurements Pain Assessment: Controlled. General: Awake, Alert, Appropriate. Respiratory: Adequate air exchange. Cardiovascular: Stable, Normal peripheral perfusion. Neurological: Normal sensory function, Normal motor function. Assessment Anesthetic outcome No anesthetic complications noted. Adequate pain relief. able to void without difficulty, able to ambulate with assist, tolerating PO intake, no N/V. Review / Management Condition: Stable. Plan Transfer/Discharge: Transfer/Discharge Discharge when meets criteria ( To home ).[facility] CenterComment on above:Result Comment: Electronically Signed By: MD Solomon Ahmad F\.br\Date and Time Signed: 02/19/24 08:35 EDT 02-19-2024 NoteProgress Note-Physician Patient: SOLOMON PICKARD SR Age: 58 years Sex: Male : 1965 Associated Diagnoses: None Author: MD Solomon Ahmad F Preoperative Information Time patient last ate or drank:=== (npo 8 hours) Anesthesia history: Patient history: No prior anesthesia problems. Re-evaluation prior to induction: Completed, Initial evaluation reviewed. Review of Systems Respiratory: No shortness of breath. Cardiovascular: No chest pain. Hematology/Lymphatics: No bruising tendency, No bleeding tendency. Health Status Allergies: Allergic Reactions (All) Mild Latex- Rash and itching. Severity Not Documented Penicillin G benzathine- No reactions were documented. Penicillins- Anaphylactoid reaction. Current medications: (Selected) Inpatient Medications Ordered Amaryl 2 mg Tab: 2 mg = 1 tab(s), Tab, Oral, BID, Routine, Start date 02/12/24 21:00:00 EDT, 02/12/24 18:01:00 EDT Dextrose 50% Soln-IV: 50 mL, Soln-IV, IV Push, Once PRN Blood glucose, Routine, Start date 02/11/2417:10:00 EDT Ensure Muscle Heallth Chocolate 237 mL: 237 mL, Liquid, Oral, BIDWM, Routine, Start date 02/13/24 17:00:00 EDT, Over Ice HumaLOG Sliding Scale: 0-10 Unit(s), Injection-Insulin, SubCutaneous, QIDACHS, Routine, Start date 02/12/24 21:00:00 EDT Januvia 100 mg Tab: 100 mg = 1 tab(s), Tab, Oral, Daily, Routine, Start date 02/13/24 9:00:00 EDT, 02/12/24 18:02:00 EDT Jardiance 10 mg oral tablet: 10 mg = 1 tab(s), Tab, Oral, Daily, Routine, Start date 02/16/24 10:00:00 EDT Tenzin packet: 1 EA, Packet, Oral, BID, Routine, Start date 02/13/24 21:00:00 EDT Pantoprazole [address] Tab: 40 mg = 1 tab(s), Tab-DR, Oral, Daily, Routine, Start date 02/13/24 9:00:00 EDT, 02/12/24 20:08:00 EDT Percocet 5 mg-325 mg oral tablet: 2 tab(s), Tab, Oral, [id number], Routine, Start date 02/16/24 14:00:00 EDT Plavix 75 mg Tab: 75 mg = 1 tab(s), Tab, Oral, Daily, Routine, Start date 02/13/24 9:00:00 EDT, 02/12/24 18:00:00 EDT Sodium Chloride 0.9% IV Malaika 250 mL bag 250 mL: 250 mL, IV, 20 mL/hr, Other (see comment), Routine, Start date 02/13/24 16:35:00 EDT, 12.5 hour(s), Total volume (mL): 250, 91.2 kg, 2.13, m2 Sodium Chloride 0.9% IV Malaika 500 mL 500 mL: 500 mL, IV, 20 mL/hr, Other (see comment), Routine, Start date 02/13/24 6:14:00 EDT, 25 hour(s), Total volume (mL): 500, 91.2 kg, 2.13, m2 acetaminophen 325 mg Tab: 650 mg = 2 tab(s), Tab, Oral, q4hr PRN Headache, Routine, Start date 02/12/24 16:06:00 EDT, 02/12/24 16:06:00 EDT amitriptyline 50 mg Tab: 100 mg = 2 tab(s), Tab, Oral, Once a day (at bedtime), Routine, Start date02/12/24 21:00:00 EDT, 02/12/24 17:59:00 EDT aspirin 81 mg Oral EC Tab: 81 mg = 1 tab(s), Tab-EC, Oral, Daily, Routine, Start date 02/13/24 9:00:00 EDT, once patient taking PO. atorvastatin 40 mg Tab: 80 mg = 2 tab(s), Tab, Oral, Daily, Routine, Start date 02/13/24 9:00:00 EDT, 02/12/24 18:00:00 EDT furosemide 40 mg Tab: 40 mg = 1 tab(s), Tab, Oral, Daily, Routine, Start date 02/13/24 9:00:00 EDT,02/12/24 20:08:00 EDT heparin 5000 units/mL Inj: 5,000 unit(s) = 1 mL, Injection, SubCutaneous, q8hrFT, Routine, Start date 02/16/24 16:00:00 EDT insulin glargine 100 units/mL SubQ Malaika 10 mL: 30 unit(s) = 0.3 mL, Injection- Insulin, SubCutaneous,Bedtime, Routine, Start date 02/16/24 21:00:00 EDT insulin lispro 100 units/mL injectable solution: 5 unit(s) = 0.05 mL, Injection- Insulin, SubCutaneous, TIDWM, Routine, Start date 02/18/24 12:00:00 EDT isosorbide mononitrate 30 mg ER Tab: 30 mg = 1 tab(s), Tab-ER, Oral, qAM, Routine, Start date 02/13/24 7:30:00 EDT, 02/12/24 20:07:00 EDT metoprolol tartrate 100 mg Tab: 50 mg = 0.5 tab(s), Tab, Oral, BID, Routine, Start date 02/12/24 21:00:00 EDT, 02/12/24 20:07:00 EDT naloxone 1 mg/mL Soln: 0.4 mg = 0.4 mL, Injection, IV Push, q6hr PRN Other (see comment), Routine, Start date 02/16/24 13:25:00 EDT, give if patient becomes difficult to arouse after taking percocet nicotine 14 mg/24 hr Transderm ER Film: 14 mg, 1 patch(es), Patch-ER, TransDermal, Daily, NOW, Start date 02/14/24 18:40:00 EDT polyethylene glycol 3350 17 gram packet: 17 gram = 1 EA, Powder-Recon, Oral, Daily, Routine, Start date 02/15/24 9:00:00 EDT, 02/14/24 14:08:00 EDT pregabalin 100 mg Cap: 200 mg = 2 cap(s), Cap, Oral, TID, Routine, Start date 02/12/24 22:00:00 EDT, 02/12/24 20:08:00 EDT remove patch: 1 patch(es), Patch, Topical, Daily, 02/15/24 9:00:00 EDT ropinirole 1 mg Tab: 1 mg = 1 tab(s), Tab, Oral, TID, Routine, Start date 02/12/24 22:00:00 EDT, 02/12/24 20:08:00 EDT senna 8.6 mg Tab: 8.6 mg = 1 tab(s), Tab, Oral, BID, Routine, Start date 02/16/24 9:00:00 EDT tamsulosin 0.4 mg Cap: 0.4 mg = 1 cap(s), Cap, Oral, BID, Routine, Start date 02/12/24 21:00:00 EDT, 02/12/24 18:02:00 EDT Suspended losartan 50 mg Tab: 100 mg = 2 tab(s), Tab, Oral, Daily, Routine, Start date 02/13/24 9:00:00 EDT, 02/12/24 18:01:00 EDT Prescriptions Prescribed tamsulosin 0.4 mg Cap: 0.4 mg = 1 cap(s), Oral, B (more content not included)... [facility] Center[facility]:Result Comment: Electronically Signed By: MD Juanito, Laura Rodriguez\.br\Date and Time Signed: 02/19/24 08:33 EDT 02-18-2024 NoteProgress Note-Physician Assessment/Plan Goal: 1. monitor BP 2. Monitor Hgb 3. Pain is controlled on current medications 1. 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 Essential hypertension (I10: Essential (primary) hypertension) good control continue current medication 3. Hyperlipidemia (E78.5: Hyperlipidemia, unspecified) statin 4. Anemia (D64.9: Anemia, unspecified) overall stable hgb in am 5. 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 (E11.42: Type 2 diabetes mellitus with diabetic polyneuropathy) poor control added sliding scale insulin 5 units scheduled TID 6. Stage 3 chronic kidney disease (N18.30: Chronic kidney disease, stage 3 unspecified) overall stable continue to monitor 7. Coronary artery disease (I25.10: Atherosclerotic heart disease of [place] coronary artery withoutangina pectoris) continue plavix as ordered 8. Tobacco abuse (Z72.0: Tobacco use) nicotine patch Orders: insulin lispro, 5 unit(s) = 0.05 mL, Injection-Insulin, SubCutaneous, TIDWM, Routine, Start date 02/18/24 12:00:00 EDT Basic Metabolic Panel CBC w/ Auto Diff Subjective Mr. pickard reports that he is doing well. He denied fever and chills. No chest pain. No nausea or vomiting. No diarrhea, Objective Vitals & Measurements T: 36.4 ?C(Axillary) TMIN: 36.4 ?C(Axillary) TMAX: 36.6 ?C(Axillary) HR: 81(Monitored) RR: 17 BP: 101/70 SpO2: 92% WT: 91.5 kg Intake & Output This visit (24 hour periods starting at 07:00 EDT) 02/18/24 * 02/17/24 02/16/24 Total Summary Intake mL 237 1,444 534 Output mL -- 3,550 1,425 Fluid Balance 237 -2,106 -891 Intake (3) Ensure mL 237 474 474 Oral Intake mL -- 970 -- lactulose mL -- -- 60 Total 237 1,444 534 Output (1) Urine Voided mL -- 3,550 1,425 Total -- 3,550 1,425 Counts (1) Stool Count -- 1 -- * This column has not completed the indicated time period. Physical Exam General: alert, no acute distress Skin: warm, dry Head: no trauma, normocephalic Neck: Trachea midline, no adenopathy, no tenderness Eye: normal conjunctiva, sclera clear ENMT: TM's clear, oral mucosa moist, no pharyngeal erythema or exudate Cardiovascular: regular rate and rhythm, normal peripheral perfusion Respiratory: Lungs CTA, respirations non labored Chest wall: no deformity. Gastrointestinal: soft, non distended, no tenderness, no guarding. Back: No tenderness, Normal ROM, Normal alignment. Extremities: no deformity, no trauma Neurological: oriented x 4, LOC appropriate for age, CN II-XII intact, motor strength equal & normal bilaterally, sensation equal & normal bilaterally, speech normal Psychiatric: cooperative, affect appropriate for age, normal judgement, normal psychiatric thoughts. 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 A Fibromyalgia Gross hematuria Head ache Heart attack Heart disease Heart murmur Hyperlipidemia Orchitis Restless leg Smoker Urinary retention Historical CHF (congestive heart failure) GERD [Gastroesophageal reflux disease] HTN [Hypertension] DC (myocardial infarction) NIDDM Medications Inpatient acetaminophen 325 mg Tab, 650 mg= 2 tab(s), Oral, q4hr, PRN Amaryl 2 mg Tab, 2 mg= 1 tab(s), Oral, BID amitriptyline 50 mg Tab, 100 mg= 2 tab(s), Oral, Once a day (at bedtime) aspirin 81 mg Oral EC Tab, 81 mg= 1 tab(s), Oral, Daily atorvastatin 40 mg Tab, 80 mg= 2 tab(s), Oral, Daily Dextrose 50% Soln-IV, 50 mL, IV Push, Once, PRN Ensure Muscle Heallth Chocolate 237 mL, 237 mL, Oral, BIDWM furosemide 40 mg Tab, 40 mg= 1 tab(s), Oral, Daily heparin 5000 units/mL Inj, 5000 unit(s)= 1 mL, SubCutaneous, q8hrFT HumaLOG Sliding Scale, 0-10 Unit(s), SubCutaneous, QIDACHS insulin glargine 100 units/mL SubQ Malaika 10 mL, 30 unit(s)= 0.3 mL, SubCutaneous, Bedtime insulin lispro 100 units/mL injectable solution, 5 unit(s)= 0.05 mL, SubCutaneous, TIDWM isosorbide mononitrate 30 mg ER Tab, 30 mg= 1 tab(s), Oral, qAM Januvia 100 mg Tab, 100 mg= 1 tab(s), Oral, Daily Jardiance 10 mg oral tablet, 10 mg= 1 tab(s), Oral, Daily Tenzin packet, 1 EA, Oral, BID metoprolol tartrate 100 mg Tab, 50 mg= 0.5 tab(s), Oral, BID naloxone 1 mg/mL Soln, 0.4 mg= 0.4 mL, IV Push, q6hr, PRN nicotine 14 mg/24 hr Transderm ER Film, 14 mg= 1 patch(es), TransDermal, Daily Pantoprazole [address] Tab, 40 mg= 1 tab(s), Oral, Daily Percocet 5 mg-325 mg oral tablet, 2 tab(s), Oral, [id number] Plavix 75 mg Tab, 75 mg= 1 tab(s), Oral, Daily polyethylene glycol 335 (more content not included)...[facility] CenterComment on above:Result Comment: Electronically Signed By: Marisela HERRERA, Elan Humphrey.br\Date and Time Signed: 02/18/24 13:45 [id number] NoteProgress Note-Physician Assessment/Plan Goal: 1. Aggressive bowel regimen as ordered 2. Monitor hgb 3. Monitor BGL, better controlled but still elevated. DVT prophylaxis with heparin if tolerated. 1. Hx of right BKA (Z89.511: Acquired absence of right leg below knee) Pain control PT/OT discharge to rehab Ordered: [facility] Care/Day High 50 Minutes [id number] [facility] Care/Day Moderate 35 Minutes 60186 2. Essential hypertension (I10: Essential (primary) hypertension) good control continue to hold losartan continue lasix and imdur monitor BP Ordered: [facility] Care/Day High 50 Minutes 02962 [facility] Care/Day Moderate 35 Minutes 39844 3. Hyperlipidemia (E78.5: Hyperlipidemia, unspecified) continue statin [facility] [id number] [facility] 35 Minutes 88291 4. Anemia (D64.9: Anemia, unspecified) Acute Blood loss anemia, possibly post surgical loss hgb has remained stable post transfusion continue to monitor CBC today [facility] 50 Minutes 29132 [facility] Mod[facility] 35 Minutes 20880 5. 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 (E11.42: Type 2 diabetes mellitus with diabetic polyneuropathy) BGL is better controlled today compared to yesterday continue current insulin dose with sliding scale If BGl continues to be elevated during the day today, will start meal time scheduled coverage Ordered: [facility] Care/Day High 50 Minutes 49998 [facility] Care/Day Moderate 35 Minutes 00642 6. Stage 3 chronic kidney disease (N18.30: Chronic kidney disease, stage 3 unspecified) Overall renal function is stable continue to monitor Ordered[facility] 50 Minutes 90576 [facility] Care/Day Moderate 35 Minutes 36799 7. Coronary artery disease (I25.10: Atherosclerotic heart disease of [place] coronary artery withoutangina pectoris) On home medication/ continue plavix and statin Ordered: [facility] Care/Day High 50 Minutes 06830 [facility] Care/Day Moderate 35 Minutes 97052 8. Tobacco abuse (Z72.0: Tobacco use) nicotine patch Ordered: [facility] Care/Day High 50 Minutes 90472 [facility] Care/Day Moderate 35 Minutes 28115 Orders: acetaminophen-oxycodone, 2 tab(s), Tab, Oral, [id number], Routine, Start date 02/16/24 14:00:00 EDT heparin, 5,000 unit(s) = 1 mL, Injection, SubCutaneous, q8hrFT, Routine, Start date 02/16/24 16:00:00 EDT insulin glargine, 30 unit(s) = 0.3 mL, Injection-Insulin, SubCutaneous, Bedtime, Routine, Start date 02/16/24 21:00:00 EDT insulin lispro, 8 unit(s) = 0.08 mL, Injection-Insulin, SubCutaneous, Once, Stop date 02/16/24 18:00:00 EDT, Routine, Start date 02/16/24 18:00:00 EDT lactulose, 20 gram = 30 mL, Syrup, Oral, BID for 2 time(s), Stop date 02/17/24 8:59:00 EDT, NOW, Start date 02/16/24 17:49:00 EDT naloxone, 0.4 mg = 0.4 mL, Injection, IV Push, q6hr PRN Other (see comment), Routine, Start date 02/16/24 13:25:00 EDT, give if patient becomes difficult to arouse after taking percocet Basic Metabolic Panel CBC w/ Auto Diff Subjective Mr. pickard reports that he is doing better. He denied fever and chills. He denied nausea and vomiting. no abdominal pain. He stated that he has not had BM yet. He is aware of plans to continue home miralax. Objective Vitals & Measurements T: 36.6 ?C(Oral) TMIN: 36.4 ?C(Oral) TMAX: 36.8 ?C(Axillary) HR: 92(Apical) RR: 18 BP: 126/75 SpO2:98% WT: 91.4 kg Intake & Output This visit (24 hour periods starting at 07:00 EDT) 02/17/24 * 02/16/24 02/15/24 Total Summary Intake mL 237 534 474.4 Output mL 725 1,425 3,240 Fluid Balance -488 -891 -2,765.6 Intake (3) Ensure mL 237 474 474 hydromorphone mL -- -- 0.4 lactulose mL -- 60 -- Total 237 534 474.4 Output (1) Urine Voided mL 725 1,425 3,240 Total 725 1,425 3,240 Counts (0) * This column has not completed the indicated time period. Physical Exam General: alert, no acute distress Skin: warm, dry Head: no trauma, normocephalic Neck: Trachea midline, no adenopathy, no tenderness Eye: normal conjunctiva, sclera clear ENMT: TM's clear, oral mucosa moist, no pharyngeal erythema or exudate Cardiovascular: regular rate and rhythm, normal peripheral perfusion Respiratory: Lungs CTA, respirations non labored Chest wall: no deformity. Gastrointestinal: soft, non distended, no tenderness, no guarding. Back: No tenderness, Normal ROM, Normal alignment. Extremities: right BKA Neurological: oriented x 4, LOC appropriate for age, CN II-XII intact, motor strength equal & normal bilaterally, sensation equal & normal bilaterally, speech normal Psychiatric: cooperative, affect appropriate for age, normal judgement, normal psychiatric thoughts. Lab Results Glucose Cap: 298 mg/dL High (02/17/24 07:49:00) POC Dev (more content not included)...[facility] CenterComment on above:Result Comment: Electronically Signed By: Marisela HERRERA, Elan Humphrey.br\Date and Time Signed: 02/17/24 10:36 [id number] NoteProgress Note-Physician Assessment/Plan Goals: 1. 2 time dose of lactulose for constipation 2. stop dilaudid, increase percocet dose. add naloxone. goal is to titrate pain better 3. monitor H and H 4. start heparin dvt prophylaxis now that hgb has stabilized. 1. Hx of right BKA (Z89.511: Acquired absence of right leg below knee) Pain control. stop dilaudid increase percocet to 2 tabs add naloxone add 2 dose of laculose for constipation since patient has not had bm patient reported passing gas. Ordered: Basic Metabolic Panel CBC w/ Auto Diff eGFR Path. [facility] Care/Day High 50 Minutes [id number] [facility]/Day High 50 Minutes 94755 2. Essential hypertension (I10: Essential (primary) hypertension) had to held lasix this morning due to low BP continue other home meds, Imdur, Ordered: Basic Metabolic Panel CBC w/ Auto Diff eGFR Path. [facility]/Day High 50 Minutes 16747 [facility]/Day High 50 Minutes 49907 3. Hyperlipidemia (E78.5: Hyperlipidemia, unspecified) continue statin Ordered: Basic Metabolic Panel CBC w/ Auto Diff eGFR Path. [facility]/Day High 50 Minutes 59280 [facility]/Day High 50 Minutes 34094 4. Anemia (D64.9: Anemia, unspecified) hgb is stable post transfusion at 7.6 since patient is stable, will start heparin prophylaxis Ordered: Basic Metabolic Panel CBC w/ Auto Diff eGFR Path. [facility]/Day High 50 Minutes 94076 [facility]/Day High 50 Minutes 72574 5. 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 [facility]/Day High 50 Minutes 11243 [facility]/Day High 50 Minutes 27537 6. Stage 3 chronic kidney disease (N18.30: Chronic kidney disease, stage 3 unspecified) stable continue to monitor Ordered: Basic Metabolic Panel CBC w/ Auto Diff eGFR Path. [facility]/Day High 50 Minutes 58560 [facility]/Day High 50 Minutes 89515 7. Coronary artery disease (I25.10: Atherosclerotic heart disease of [place] coronary artery withoutangina pectoris) overall stable continue plavix Ordered: Basic Metabolic Panel CBC w/ Auto Diff eGFR Path. [facility]/Day High 50 Minutes 36879 [facility]/Day High 50 Minutes 49647 8. Tobacco abuse (Z72.0: Tobacco use) nicotine patch Ordered: Basic Metabolic Panel CBC w/ Auto Diff eGFR Path. [facility]/Day High 50 Minutes 14394 [facility]/Day High 50 Minutes 80740 Orders: acetaminophen-oxycodone, 2 tab(s), Tab, Oral, [id number], Routine, Start date 02/16/24 14:00:00 EDT heparin, 5,000 unit(s) = 1 mL, Injection, SubCutaneous, q8hrFT, Routine, Start date 02/16/24 16:00:00 EDT insulin glargine, 25 unit(s) = 0.25 mL, Injection-Insulin, SubCutaneous, Bedtime, Routine, Start date 02/15/24 21:00:00 EDT lactulose, 20 gram = 30 mL, Syrup, Oral, BID for 2 time(s), Stop date 02/17/24 20:59:00 EDT, Routine, Start date 02/16/24 21:00:00 EDT, 02/16/24 11:07:00 EDT naloxone, 0.4 mg = 0.4 mL, Injection, IV Push, q6hr PRN Other (see comment), Routine, Start date 02/16/24 13:25:00 EDT, give if patient becomes difficult to arouse after taking percocet, 02/16/24 13:25:00 EDT senna, 8.6 mg = 1 tab(s), Tab, Oral, BID, Routine, Start date 02/16/24 9:00:00 EDT senna, 8.6 mg = 1 tab(s), Tab, Oral, Once, Stop date 02/15/24 15:00:00 EDT, Start date 02/15/24 15:00:00 EDT Subjective Mr. Pickard was seen and evaluated. He denied fever and chills. He noted that his pain is poorly controlled. I discussed pain management with him and he is aware of plans to increase dose of percocet while discontinuing dilaudid in anticipation that we can completely transition to P.O at the time of discharge. Objective Vitals & Measurements T: 36.6 ?C(Axillary) TMIN: 36.6 ?C(Axillary) TMAX: 36.9 ?C(Axillary) HR: 76(Monitored) RR: 16 BP: 101/59 SpO2: 98% WT: 94.5 kg Intake & Output This visit (24 hour periods starting at 07:00 EDT) 02/16/24 * 02/15/24 02/14/24 Total Summary Intake mL 237 474.4 929 Output mL 600 3,240 5,025 Fluid Balance -363 -2,765.6 -4,096 Intake (4) Ensure mL 237 474 474 Oral Intake mL -- -- 450 hydromorphone mL -- 0.4 4 morphine mL -- -- 1 Total 237 474.4 929 Output (1) Urine Voided mL 600 3,240 5,025 Total 600 3,240 5,025 Counts (0) * This column has not completed the indicated time period. Physical Exam General: alert, no acute distress Skin: warm, dry Head: no trauma, normocephalic Neck: Trachea midline, no adenopathy, no tenderness (more content not included)...[facility] CenterComment on above:Result Comment: Electronically Signed By: Marisela HERRERA, Elan Robbins\.br\Date and Time Signed: 02/16/24 13:30 [id number] NoteProgress Note-Physician Assessment/Plan Goal: 1. BGL control 2. Wound team or vascular to come look at stump 3. Pain control. will start spacing out frequency of dilaudid 1. Hx of right BKA (Z89.511: Acquired absence of right leg below knee) pain control PT/OT wound care team or vascular to reevaluate stump/dressing Ordered: Basic Metabolic Panel CBC w/ Auto Diff [facility]/Day High 50 Minutes [id number] 2. Essential hypertension (I10: Essential (primary) hypertension) good control continue current medications Ordered: Basic Metabolic Panel CBC w/ Auto Diff [facility]/Day High 50 Minutes 42036 3. Hyperlipidemia (E78.5: Hyperlipidemia, unspecified) statin Ordered: Basic Metabolic Panel CBC w/ Auto Diff [facility]/Day High 50 Minutes 53557 4. Anemia (D64.9: Anemia, unspecified) hgb has remained stable since transfusion hgb is 7.7. i thought it should be higher than than considering that he received 2 units of PRBC. Ordered: Basic Metabolic Panel CBC w/ Auto Diff [facility]/Day High 50 Minutes 51036 5. 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 Stage 3 chronic kidney disease (N18.30: Chronic kidney disease, stage 3 unspecified) overall stable, but noted mild increase in creatinine today contiue to monitor Ordered: Basic Metabolic Panel CBC w/ Auto Diff [facility] 50 Minutes 36413 7. Coronary artery disease (I25.10: Atherosclerotic heart disease of [place] coronary artery withoutangina pectoris) Plavix for secondary prophylaxis Ordered: Basic Metabolic Panel CBC w/ Auto Diff [facility] 50 Minutes 89740 8. Tobacco abuse (Z72.0: Tobacco use) nicotine patch Ordered: Basic Metabolic Panel CBC w/ Auto Diff [facility] 50 Minutes [id number] Orders: insulin glargine, 25 unit(s), Injection-Insulin, SubCutaneous, Bedtime, Routine, Start date 02/15/24 21:00:00 EDT, 02/15/24 12:04:00 EDT nicotine, 14 mg, 1 patch(es), Patch-ER, TransDermal, Daily, NOW, Start date 02/14/24 18:40:00 EDT polyethylene glycol 3350, 17 gram = 1 EA, Powder-Recon, Oral, Daily, Routine, Start date 02/15/24 9:00:00 EDT, 02/14/24 14:08:00 EDT remove patch, 1 patch(es), Patch, Topical, Daily, 02/15/24 9:00:00 EDT Occupational Therapy Additional Tx Occupational Therapy Evaluate Patient, Develop a Plan of Care and Implement Plan Physical Therapy Additional Tx Physical Therapy Evaluate Patient, Develop a Plan of Care and Implement Plan Subjective Mr. Pickard was seen and evaluated. he noted that pain is better today. He denied fever and chills. No chest pain. He noted some mild bleeding at the posterior dressing of his stump. Objective Vitals & Measurements T: 37 ?C(Axillary) TMIN: 36.7 ?C(Axillary) TMAX: 37.0 ?C(Oral) HR: 59(Monitored) RR: 18 BP: 119/49 SpO2: 98% WT: 102.7 kg Intake & Output This visit (24 hour periods starting at 07:00 EDT) 02/15/24 * 02/14/24 02/13/24 Total Summary Intake mL 237.4 929 1,494.48 Output mL -- 5,025 5,750 Fluid Balance 237.4 -4,096 -4,255.52 Intake (9) Blood Unit #1 Volume Infused mL -- -- 279 Blood Unit #2 Volume Infused mL -- -- 330 Ensure mL 237 474 237 Generic Diluent, magnesium sulfate mL -- -- 40.22 Oral Intake mL -- 450 600 Sodium Chloride 0.9% intravenous solution 250 mL mL -- -- 0.26 furosemide mL -- -- 4 hydromorphone mL 0.4 4 -- morphine mL -- 1 4 Total 237.4 929 1,494.48 Output (1) Urine Voided mL -- 5,025 5,750 Total -- 5,025 5,750 Counts (0) * This column has not completed the indicated time period. Physical Exam General: alert, no acute distress Skin: warm, dry Head: no trauma, normocephalic Neck: Trachea midline, no adenopathy, no tenderness Eye: normal conjunctiva, sclera clear ENMT: TM's clear, oral mucosa moist, no pharyngeal erythema or exudate Cardiovascular: regular rate and rhythm, normal peripheral perfusion Respiratory: Lungs CTA, respirations non labored Chest wall: no deformity. Gastrointestinal: soft, non distended, no tenderness, no guarding. Back: No tenderness, Normal ROM, Normal alignment. Extremities: right BKA Neurological: oriented x 4, LOC appropriate for age, CN II-XII intact, motor strength equal & normal bilaterally, sensation equal & normal bilaterally, speech normal Psychiatric: cooperative, affect appropriate for age, normal judgement, normal psychiatric thoughts. Lab Results WBC: 9 E9/L (02/15/24 04:54:00) RBC: 3.2 E12/L Low (02/15/24 04:54:00) HGB: 7.7 gm/dL Low (02/15/24 04:54:00) Hct: 22.2 % Low (more content not included)...[facility] CenterComment on above:Result Comment: Electronically Signed By: Marisela HERRERA, Elan Humphrey.br\Date and Time Signed: 02/15/24 13:28 [id number] NoteInterdisciplinary Note - PT PT Evaluation completed with an [facility] score of 16/24. Pt was able to perform bed mobility with Mod I and transfers with CGA/Min A. Pt was able to ambulate 4 feet with FWW, but does fatigue easily. Ptdoes report increased pain in right stump, but still maintained activity well. Pt will need furtherrehabilitation SNF in order to return home again safelyOhiohealth [facility]09-11-2024 NoteProgress Note-Physician Assessment/Plan 1. 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 due to poor pain control, I discontinued IV morphine and switched to IV dilaudid PT/OT appreciate Vascular team recommendations Ordered: [facility] Care/Day High 50 Minutes 20782 2. Essential hypertension (I10: Essential (primary) hypertension) Better compared to yesterday. continue current management currently on lasix, losartan, metoprolol and imdur. seems to be too much BP meds since BP is about 120s. continue to monitor BP. Ordered: [facility] Care/Day High 50 Minutes 00559 3. Hyperlipidemia (E78.5: Hyperlipidemia, unspecified) continue statin Ordered: [facility] Care/Day High 50 Minutes 98701 4. Anemia (D64.9: Anemia, unspecified) Acute on chronic anemia due to surgical intervention hgb has remained stable since transfusion continue to monitor h and h Ordered: [facility] Care/Day High 50 Minutes 36002 5. 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 continue lantus at current dose continue Jardiance and Glimipiride Ordered: [facility] Care/Day High 50 Minutes 04064 6. Stage 3 chronic kidney disease (N18.30: Chronic kidney disease, stage 3 unspecified) possible due to complication of DM. monitor renal function. creatinine at baseline of 1.9. needs out patient follow up for Nephro recommendation 7. Coronary artery disease (I25.10: Atherosclerotic heart disease of [place] coronary artery withoutangina pectoris) continue plavix and asa as ordered Orders: acetaminophen-oxycodone, 1 tab(s), Tab, Oral, s1rs-QD, Routine, Start date 02/13/24 13:00:00 EDT furosemide, 40 mg = 4 mL, Injection, IV Push, Once, Stop date 02/13/24 11:00:00 EDT, Routine, Startdate 02/13/24 11:00:00 EDT, Please give after 1st unit transfusion HYDROmorphone, 1 mg = 1 mL, Injection, IV Push, q4hr PRN Pain, Routine, Start date 02/14/24 9:37:00EDT, 02/14/24 9:37:00 EDT magnesium sulfate + Generic Diluent 50 mL, 2 gram = 50 mL, Soln-IV, IV Piggyback, Once, Stop date 02/13/24 17:00:00 EDT, Routine, Start date 02/13/24 17:00:00 EDT, 25 mL/hr, Infuse over 2 hour(s) Sodium Chloride 0.9% intravenous solution 250 mL, 250 mL, IV, 20 mL/hr, Other (see comment), Routine, Start date 02/13/24 16:35:00 EDT, 12.5 hour(s), Total volume (mL): 250, 91.2 kg, 2.13, m2 CBC w/ Auto Diff Hemoglobin and Hematocrit HgbA1c Occupational Therapy Evaluate Patient, Develop a Plan of Care and Implement Plan Physical Therapy Evaluate Patient, Develop a Plan of Care and Implement Plan Referral to Resource Center Subjective Mr. Pickard was seen and examined this morning. He is complaining of severe right BKA pain. He noted that neither morphine nor Percocet is controlling the pain. He noted elevated BP. He is aware that his hgb has stabilized post transfusion. He is aware of plans to titrate his pain medication for better pain control Objective Vitals & Measurements T: 37 ?C(Axillary) TMIN: 36.6 ?C(Oral) TMAX: 37 ?C(Axillary) HR: 85(Apical) RR: 18 BP: 113/64 SpO2:97% WT: 91.2 kg Intake & Output This visit (24 hour periods starting at 07:00 EDT) 02/14/24 * 02/13/24 02/12/24 Total Summary Intake mL 238 1,494.48 1,156.54 Output mL 300 5,750 1,750 Fluid Balance -62 -4,255.52 -593.46 Intake (18) Blood Unit #1 Volume Infused mL -- 279 -- Blood Unit #2 Volume Infused mL -- 330 -- Ensure mL 237 237 -- Generic Diluent, magnesium sulfate mL -- 40.22 -- Lactated Ringers Injection mL -- -- 1,000 Lactated Ringers Injection 1,000 mL mL -- -- 125 Oral Intake mL -- 600 -- Sodium Chloride 0.9% intravenous solution 250 mL mL -- 0.26 -- dexamethasone mL -- -- 1 esmolol mL -- -- 4 fentanyl mL -- -- 2 furosemide mL -- 4 -- hydromorphone mL -- -- 3 lidocaine mL -- -- 2.5 morphine mL 1 4 2 ondansetron mL -- -- 2 phenylephrine mL -- -- 0.04 propofol mL -- -- 15 Total 238 1,494.48 1,156.54 Output (2) EBL Surgery mL -- -- 250 Urine Voided mL 300 5,750 1,500 Total 300 5,750 1,750 Counts (0) * This column has not completed the indicated time period. Physical Exam General: alert, no acute distress Skin: warm, dry Head: no trauma, normocephalic Neck: Trachea midline, no adenopathy, no tenderness Eye: normal conjunctiva, sclera clear ENMT: TM's clear, oral mucosa moist, no pharyngeal erythema or exudate Cardiovascular: regular rate and rhythm, normal peripheral perfusion Respiratory: Lungs CTA, respirations non labored Chest wall: no deformity. Gastrointestinal: soft, non distended, no tenderness, no guarding. Back: No tenderness, Normal ROM, Normal alignment. Extremities: right BKA Debbie (more content not included)...[facility] CenterComment on above: Result Comment: Electronically Signed By: Marisela HERRERA, Elan Humphrey.livia\Date and Time Signed: 02/14/24 09:57 [id number] NoteProgress Note-Physician Assessment/Plan 1. 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 appreciate additional recommendation from Vascular team Ordered: [facility] Care/Day High 75 Minutes 48491 2. Essential hypertension (I10: Essential (primary) hypertension) BP on the low side today unsure if this is related to ?Anemia hold Losartan monitor BP, if still low, will bolus. Ordered: [facility] Care/Day High 75 Minutes 89055 3. Hyperlipidemia (E78.5: Hyperlipidemia, unspecified) statin Ordered: [facility] Care/Day High 75 Minutes 56114 4. Anemia (D64.9: Anemia, unspecified) Acute on chronic anemia. acute loss due to post op blood loss transfused 2 units of PRBC today. continue to monitor will hold asa and plavix for now and resume when Anemia improves or stabilized Also hold off on anticoagulation until anemia stabilizes can do scd on left leg Ordered: [facility] Care/Day High 75 Minutes 29540 5. 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 (E11.42: Type 2 diabetes mellitus with diabetic polyneuropathy) poorly controlled diabetic diet continue glimipiride, lantus and januvia Monitor BGL and treate with sliding scale as needed Ordered: [facility] Care/Day High 75 Minutes 60113 Orders: acetaminophen-oxycodone, 1 tab(s), Tab, Oral, t3oz-RF, Routine, Start date 02/13/24 13:00:00 EDT amitriptyline, 100 mg = 2 tab(s), Tab, Oral, Once a day (at bedtime), Routine, Start date 02/12/24 21:00:00 EDT, 02/12/24 17:59:00 EDT atorvastatin, 80 mg = 2 tab(s), Tab, Oral, Daily, Routine, Start date 02/13/24 9:00:00 EDT, 02/12/24 18:00:00 EDT clopidogrel, 75 mg = 1 tab(s), Tab, Oral, Daily, Routine, Start date 02/13/24 9:00:00 EDT, 02/11/2418:00:00 EDT furosemide, 40 mg = 4 mL, Injection, IV Push, Once, Stop date 02/13/24 11:00:00 EDT, Routine, Startdate 02/13/24 11:00:00 EDT, Please give after 1st unit transfusion glimepiride, 2 mg = 1 tab(s), Tab, Oral, BID, Routine, Start date 02/12/24 21:00:00 EDT, 02/12/24 18:01:00 EDT glucose, 50 mL, Soln-IV, IV Push, Once PRN Blood glucose, Routine, Start date 02/12/24 17:10:00 EDT hydrochlorothiazide, 12.5 mg = 1 tab(s), Tab, Oral, Daily, Routine, Start date 02/13/24 9:00:00 EDT, 02/12/24 18:01:00 EDT insulin lispro, 0-10 Unit(s), Injection-Insulin, SubCutaneous, QIDACHS, Routine, Start date 02/12/24 21:00:00 EDT sitagliptin, 100 mg = 1 tab(s), Tab, Oral, Daily, Routine, Start date 02/13/24 9:00:00 EDT, 02/12/24 18:02:00 EDT tamsulosin, 0.4 mg = 1 cap(s), Cap, Oral, BID, Routine, Start date 02/12/24 21:00:00 EDT, 02/12/24 18:02:00 EDT Capillary Glucose POC Capillary Glucose POC Capillary Glucose POC Capillary Glucose POC CBC w/ Auto Diff Glucose Random Hemoglobin and Hematocrit HgbA1c Hypoglycemia Protocol Responsive Patient Hypoglycemia Protocol Unresponsive Patient Occupational Therapy Evaluate Patient, Develop a Plan of Care and Implement Plan Physical Therapy Evaluate Patient, Develop a Plan of Care and Implement Plan Subjective Mr. Pickard reports that he is doing okay. He is now interested in going [facility] to get PT to enable him be learn how to perform adl post Objective Vitals & Measurements T: 36.7 ?C(Oral) TMIN: 36.5 ?C(Axillary) TMAX: 36.8 ?C(Axillary) HR: 70(Monitored) RR: 16 BP: 98/62SpO2: 100% HT: 179.4 cm Intake & Output This visit (24 hour periods starting at 07:00 EDT) 02/13/24 * 02/12/24 02/11/24 Total Summary Intake mL 914 1,156.54 -- Output mL 850 1,750 -- Fluid Balance 64 -593.46 -- Intake (15) Blood Unit #1 Volume Infused mL 279 -- -- Blood Unit #2 Volume Infused mL 330 -- -- Lactated Ringers Injection mL -- 1,000 -- Lactated Ringers Injection 1,000 mL mL -- 125 -- Oral Intake mL 300 -- -- dexamethasone mL -- 1 -- esmolol mL -- 4 -- fentanyl mL -- 2 -- furosemide mL 4 -- -- hydromorphone mL -- 3 -- lidocaine mL -- 2.5 -- morphine mL 1 2 -- ondansetron mL -- 2 -- phenylephrine mL -- 0.04 -- propofol mL -- 15 -- Total 914 1,156.54 -- Output (2) EBL Surgery mL -- 250 -- Urine Voided mL 850 1,500 -- Total 850 1,750 -- Counts (0) * This column has not completed the indicated time period. Physical Exam General: alert, no acute distress Skin: warm, dry Head: no trauma, normocephalic Neck: Trachea midline, no adenopathy, no tenderness Eye: normal conjunctiva, sclera clear ENMT: TM's clear, oral mucosa moist, no pharyngeal erythema or exudate Cardiovascular: regular rate and rhythm, normal peripheral perfusion Respiratory: Lungs CTA, respirations non labored Chest wall: no deformity. Gastrointestinal: soft, non distended, no tenderness, no guarding. Back: No tenderness, Luzmaria (more content not included)...[facility] CenterComment on above:Result Comment: Electronically Signed By: Marisela HERRERA, Elan Robbins\.br\Date and Time Signed: 02/13/24 12:25 [id number] NoteHistory and Physical History of Present Illness Mr. Pickard was admitted for elective right BKA. This has successfully done and transferred to inpatient for monitoring. He reported hx of diabetic melitus complicated with peripheral neuropathy. His symptoms started after stepping on sharp object. The wound unfortunately ended up being infected requiring multiple surgical intervention with non healing wound. he had multiple amputation and finally ended up with Review of Systems Constitutional: no fever, no chills, no sweats, [...] no food allergies, no recurrent infections, no impairedimmunity Additional ROS info: Except as noted in the above Review of Systems and in the History of Present Illness all other systems have been reviewed and are negative or noncontributory. Scoring Moran Fall Risk Score: 55 High (02/12/24) Physical Exam Vitals & Measurements T: 36.7 ?C(Oral) TMIN: 36.5 ?C(Temporal Artery) TMAX: 36.7 ?C(Temporal Artery) HR: 107(Monitored) RR: 17 BP: 106/67 SpO2: 95% HT: 179.4 cm WT: 91.2 kg General: alert, no acute distress Skin: warm, dry Head: no trauma, normocephalic Neck: Trachea midline, no adenopathy, no tenderness Eye: normal conjunctiva, sclera clear ENMT: TM's clear, oral mucosa moist, no pharyngeal erythema or exudate Cardiovascular: regular rate and rhythm, normal peripheral perfusion Respiratory: Lungs CTA, respirations non labored Chest wall: no deformity. Gastrointestinal: soft, non distended, no tenderness, no guarding. Back: No tenderness, Normal ROM, Normal alignment. Extremities: no deformity, no trauma Neurological: oriented x 4, LOC appropriate for age, CN II-XII intact, motor strength equal & normal bilaterally, sensation equal & normal bilaterally, speech normal Psychiatric: cooperative, affect appropriate for age, normal judgement, normal psychiatric thoughts. Lab Results WBC: 14.7 E9/L High (02/12/24 16:47:00) RBC: 3.4 E12/L Low (02/12/24 16:47:00) HGB: 7.2 gm/dL Low (02/12/24 16:47:00) Hct: 23.5 % Low (02/12/24 16:47:00) MCV: 68.8 fL Low (02/12/24 16:47:00) MCH: 21.1 pg Low (02/12/24 16:47:00) MCHC: 30.7 gm/dL Low (02/12/24 16:47:00) RDW: 18.5 % High (02/12/24 16:47:00) Platelet: 244 E9/L (02/12/24 16:47:00) MPV: 8 fL (02/12/24 16:47:00) RBC Morph: NORMAL (02/12/24 16:47:00) Microcyte: PRESENT (02/12/24 16:47:00) Hypochromasia: PRESENT (02/12/24 16:47:00) Polychromasia: PRESENT (02/12/24 16:47:00) Target Cell: PRESENT (02/12/24 16:47:00) PT: 12.6 second(s) High (02/12/24 16:47:00) INR: 1.12 (02/12/24 16:47:00) PTT: 28 second(s) (02/12/24 16:47:00) Glucose Lvl: 274 mg/dL High (02/12/24 16:47:00) BUN: 16 mg/dL (02/12/24 16:47:00) Creatinine: 1.5 mg/dL High (02/12/24 16:47:00) eGFR: 53 mL/min/1.73 m2 Low (02/12/24 16:47:00) BUN/Creat Ratio: 11 (02/12/24 16:47:00) Sodium Lvl: 135 mmol/L (02/12/24 16:47:00) Potassium Lvl: 4.5 mmol/L (02/12/24 16:47:00) Chloride: 102 mmol/L (02/12/24 16:47:00) CO2: 26 mmol/L (02/12/24 16:47:00) AGAP: 12 mEq/L (02/12/24 16:47:00) Calcium Lvl: 8.1 mg/dL Low (02/12/24 16:47:00) Glucose Cap: 259 mg/dL High (02/12/24 17:15:00) POC Device SN: [id number] (02/12/24 17:15:00) POC User ID: [id number] (02/12/24 17:15:00) POC Username: POC Username (02/12/24 17:15:00) ABO/Rh: O POS (02/12/24 12:00:00) ABSC Gel Interp: Negative (02/12/24 12:00:00) Images monitor hgb monitor renal function. noted creatinine of 1.5. check BMp In am Assessment/Plan 1. Hx of right BKA (Z89.511: Acquired absence of right leg below knee) pain control for now post op day 0 appreciate additional recommendation from Vascular team discharge instruction per protocol on wound care 2. Essential hypertension (I10: Essential (primary) hypertension) resume home med 3. Hyperlipidemia (E78.5: Hyperlipidemia, unspecified) statin 4. Anemia (D64.9: Anemia, unspecified) noted hgb of 7.3 post surgical intervention vitals are stable will order type and screen in am 5. 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 (E11.42: Type 2 diabetes mellitus with diabetic polyneuropathy) diabetic diet home meds as ordered hypoglycemic protocol Orders: amitriptyline, 100 mg = 2 tab(s), Tab, Oral, Once a day (at bedti (more content not included)...[facility] CenterComment on above:Result Comment: Electronically Signed By: Marisela HERRERA, Elan Robbins\.br\Date and Time Signed: 02/12/24 18:34 [id number] NotePatient Education - Text [place], [place] Cardiovascular PCI DISCHARGE INSTRUCTIONS Diet: ? [...] (such as Plavix, Brilinta or Effient) do NOTstop taking these medications for any reason without talking to your distribution engineer Site Care: ? Do not remove dressing [...] you are interested in smoking cessation, contact [facility] [place] [place] at [phone], ext. [phone]. ? In the event you are unable to reach your physician, please call Rosa at [phone] andthe mottler operator will assist you. Seek Medicare Care [...] your urine or stool ? Black tarry stoolsOhiohealth Arthur G.[facility]. [facility], [facility] Center08-05-2024 NoteProgress Note-Physician Procedure Airway Assessment: Class I: Visualization of the soft palate, fauces, uvula, anterior and posteriorpillars Airway Abnormalities: none ASA Classification: ASA 3: [...] ad Senait Vital Signs Vital Signs Vital SignsOhiohealth Arthur G.H. Bing, Md, Cancer CenterComment on above: Result Comment: Electronically Signed By: Simon HERRERA, Padmini Weathers\.br\Date and Time Signed: 01/08/24 16:02 [id number] NoteSinus tachycardia Rightward axis Poor anterior R wave progression QTc 481 [id number] History of Present illness Narrative* Raulito Inman MD - 10/24/2023 10:20 AM EDT Subjective Solomon Pickard is a 58 y.o. male Chief Complaint [...] coronary disease to be stable and he isprobably a suitable candidate for any future and/or [...] by mouth once daily at bedtime., Disp: ,Rfl: clopidogrel (Plavix) 75 mg tablet, Take 1 tablet (75 mg) by mouth once daily., Disp: , Rfl: DULoxetine (Cymbalta) [address] capsule, Take 1 capsule (60 mg) by mouth once daily. Do not crush orchew., Disp: , Rfl: empagliflozin (Jardiance) 10 mg, [...] under the skin. Take as directed per insulininstructions., Disp: , Rfl: isosorbide mononitrate ER (Imdur) 30 mg 24 hr tablet, TAKE 1 TABLET BY MOUTH EVERY DAY DIRECTED,Disp: 30 tablet, Rfl: 6 loperamide (Imodium A-D) [...] mg) by mouth 2 times a day beforemeals. Do not crush, chew, or split., Disp: [...] (100 mg) by mouth once daily., Disp: ,Rfl: ubrogepant (Ubrelvy) 100 mg tablet tablet, Take [...] the direction and in the presence of Inocencia Inman MD. Provider Attestation - Scribe documentation All medical record entries made by the Scribe were at my direction and personally dictated by me. Ihave reviewed the chart and agree that the record accurately reflects my personal performance of the history, physical exam, discussion and plan. [facility] Work Phone: 1(130) 648-894105-21-2024 Instructions* Patient Instructions* Rosemary Benavides LPN - 10/24/2023 10:20 AM [...] from a cardiac standpoint documented in [facility] Work Phone: 1(344) 909-487002-08-2024 Hospital Discharge instructions Follow Up Care 07/13/2023 12:04:02 With:SOLEDAD HERRERA, Yeyo Blum, URL Address: [address] [place] [address]- When: Unknown [facility] 01-22-2024 Evaluation note* Encounter Date Diagnosis Assessment Notes Treatment Notes Treatment Clinical Notes Jun, Hyperlipidemia (ICD-10 - E78.5) [facility] Other 12-29-2023 Hospital Discharge instructions Patient Education [...] urethra. Follow these instructions at home: Take weri-xzf-xzgluhm and prescription medicines only as told by [...] provider. Document Revised: 12/08/2021 Document Reviewed: 12/08/2021 [employer] Patient Education 2022 [employer]. Follow Up Care 06/01/2023 14:05:36 With:SOLEDAD HERRERA, Yeyo Blum, URL Address: [address] [place], [place] [id number]- When: Unknown [facility] 12-12-2023 Evaluation note* Encounter Date Diagnosis Assessment Notes Treatment Notes Treatment Clinical Notes May, 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) [facility] Other 11-24-2023 Evaluation note* Encounter Date Diagnosis Assessment Notes Treatment Notes Treatment Clinical Notes Apr, Diabetic nephropathy (ICD-10 - E11.21) [facility] Other 11-07-2023 Evaluation note* Encounter Date Diagnosis Assessment Notes Treatment Notes Treatment Clinical Notes Apr, Left arm pain (ICD-10 - M79.602) [facility] Other 11-02-2023 Evaluation note* Encounter Date Diagnosis [...] and to have his surgery as scheduled. [facility] Other 10-24-2023 Evaluation note* Encounter Date Diagnosis Assessment Notes Treatment Notes Treatment Clinical Notes Mar, 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) Mar, Atherosclerotic hear t disease of [place] coronary artery without angina pectoris (ICD-10 - I25.10) [facility] Other 10-11-2023 Evaluation note* Encounter Date Diagnosis [...] No records available as of yet from [facility]. He was found to have developed [...] to continue to montior this at home. [facility] Other 10-09-2023 Note [id number] 02-14-2023 Hospital Discharge instructions Patient Education 02/14/2023 [...] including vitamins, herbs, eye drops, creams, and wsgj-kxs-upcfdtz medicines. Any problems you or family members [...] provider tells you to take them. Taking oudu-mvx-ianhdky medicines, vitamins, herbs, and supplements. Surgery safety [...] provider. Document Revised: 02/15/2022 Document Reviewed: 02/15/2022 [employer] Patient Education 2022 [employer]. [facility]08-28-2023 Hospital Discharge instructions Patient Education 01/30/2023 [...] including vitamins, herbs, eye drops, creams, and izfe-fnd-adndhnq medicines. ?Whether you are or may be [...] provider. Document Revised: 02/02/2022 Document Reviewed: 12/25/2020 [employer] Patient Education 2022 [employer]. 01/30/2023 11:22:30 Cystoscopy Cystoscopy Cystoscopy is a [...] including vitamins, herbs, eye drops, creams, and fgmc-cvv-pnozngb medicines. Any problems you or family members [...] provider tells you to take them. Taking drar-iex-denyyve medicines, vitamins, herbs, and supplements. Tests You [...] Follow these instructions at home: Medicines Take lgta-ekv-apfjzel and prescription medicines only as told by [...] provider. Document Revised: 02/02/2022 Document Reviewed: 01/01/2021 [employer] Patient Education 2022 [employer] Follow Up Care 11/23/2022 13:02:56 With:SOLEDAD HERRERA, Yeyo Blum, URL Address: [facility] [address], [place] [address] [phone] When: Unknown Comments:sched cysto/uros [facility] 08-15-2023 Evaluation note* Encounter Date Diagnosis Assessment Notes Treatment Notes Treatment Clinical Notes Jan, Diabetic nephropathy (ICD-10 - E11.21) [facility] Other 06-29-2023 Evaluation note* Encounter Date Diagnosis [...] reviewed. Nov, Atherosclerotic hear t disease of [place] coronary artery without angina pectoris (ICD-10 - I25.10) Encouraged patient to follow with Cardiology as scheduled. [facility] Other 06-21-2023 Hospital Discharge instructions Patient Education [...] provider. Document Revised: 08/11/2021 Document Reviewed: 05/07/2021 [employer] Patient Education 2021 [employer]. Follow Up Care 09/14/2022 14:23:26 With:SOLEDAD HERRERA, Yeyo Blum, URL Address: [facility] [address] , [place] [address]- When: Unknown [facility] 05-05-2023 Evaluation note* Encounter Date Diagnosis Assessment Notes Treatment Notes Treatment Clinical Notes October, Erectile dysfunction, unspecified erectile dysfunction type (ICD-10 - N52.9) [facility] Other 04-19-2023 Evaluation note* Encounter Date Diagnosis Assessment Notes Treatment Notes Treatment Clinical Notes Sep, 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) [facility] Other 04-12-2023 Evaluation note* Encounter Date Diagnosis Assessment Notes Treatment Notes Treatment Clinical Notes Sep, Atherosclerotic hear t disease of [place] coronary artery without angina pectoris (ICD-10 - I25.10) Sep, 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) [facility] Other 03-20-2023 Evaluation note* Encounter Date Diagnosis Assessment Notes Treatment Notes Treatment Clinical Notes Aug, Diabetic nephropathy (ICD-10 - E11.21) [facility] Other 03-03-2023 Evaluation note* Encounter Date Diagnosis Assessment Notes Treatment Notes Treatment Clinical Notes Aug, Pain in right leg (ICD-10 - M79.604) [facility] Other 03-02-2023 Evaluation note* Encounter Date Diagnosis Assessment Notes Treatment Notes Treatment Clinical Notes Aug, Pain in right leg (ICD-10 - M79.604) [facility] Other 02-20-2023 Evaluation note* Encounter Date Diagnosis Assessment Notes Treatment Notes Treatment Clinical Notes Jul, Intractable episodic headache, unspecified headache type (ICD-10 - R51.9) [facility] Other 02-14-2023 Evaluation note* Encounter Date Diagnosis Assessment Notes Treatment Notes Treatment Clinical Notes Jul, Acute intractable headache, unspecified headache type (ICD-10 - R51.9) [facility] Other 02-08-2023 Evaluation note* Encounter Date Diagnosis Assessment Notes Treatment Notes Treatment Clinical Notes Jul, Headache (ICD-10 - R51.9) [facility] Other 01-30-2023 Evaluation note* Encounter Date Diagnosis [...] medication and we will continue to monitor. [facility] Other 12-21-2022 Evaluation note* Encounter Date Diagnosis Assessment Notes Treatment Notes Treatment Clinical Notes May, Diabetic nephropathy (ICD-10 - E11.21) [facility] Other 11-21-2022 Evaluation note* Encounter Date Diagnosis Assessment Notes Treatment Notes Treatment Clinical Notes Apr, Diabetic nephropathy (ICD-10 - E11.21) [facility] Other 11-15-2022 Evaluation note* Encounter Date Diagnosis Assessment Notes Treatment Notes Treatment Clinical Notes Apr, Pain in right leg (ICD-10 - M79.604) [facility] Other 10-18-2022 Evaluation note* Encounter Date Diagnosis Assessment Notes Treatment Notes Treatment Clinical Notes Mar, Diabetic nephropathy (ICD-10 - E11.21) [facility] Other 09-13-2022 Evaluation note* Encounter Date Diagnosis Assessment Notes Treatment Notes Treatment Clinical Notes Feb, Hypertensive chronic kidney disease with stage 1 through stage 4 chronic kidney disease, or unspecified chronic kidney disease (ICD-10 - I12.9) [facility] Other 09-13-2022 Evaluation note* Encounter Date Diagnosis [...] scheduled. 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 Feb, Pain in right leg [...] are normal, we will continue to monitor. 13 Feb, 2022 Vitamin D deficiency (ICD-10 - E55.9) Noted upon review of blood work results. [facility] Other 08-19-2022 Evaluation note* Encounter Date Diagnosis Assessment Notes Treatment Notes Treatment Clinical Notes Jan, Diabetic nephropathy (ICD-10 - E11.21) [facility] Other 08-17-2022 Evaluation note* Encounter Date Diagnosis Assessment Notes Treatment Notes Treatment Clinical Notes Jan, Diabetic nephropathy (ICD-10 - E11.21) [facility] Other 07-21-2022 Evaluation note* Encounter Date Diagnosis Assessment Notes Treatment Notes Treatment Clinical Notes Dec, Diabetic nephropathy (ICD-10 - E11.21) [facility] Other 06-22-2022 Evaluation note* Encounter Date Diagnosis Assessment Notes Treatment Notes Treatment Clinical Notes Nov, Diabetic nephropathy (ICD-10 - E11.21) [facility] Other 05-23-2022 Evaluation note* Encounter Date Diagnosis Assessment Notes Treatment Notes Treatment Clinical Notes October, Diabetic nephropathy (ICD-10 - E11.21) [facility] Other 05-17-2022 Evaluation note* Encounter Date Diagnosis [...] E11.59) October, Atherosclerotic hear t disease of [place] coronary artery without angina pectoris (ICD-10 - I25.10) Patient follows with Dr. Inman. For this October, Other He did quit smoking since July 2020 [facility] Other 05-16-2022 Evaluation note* Encounter Date Diagnosis Assessment Notes Treatment Notes Treatment Clinical Notes October, Hypertensive chronic kidney disease with stage 1 through stage 4 chronic kidney disease, or unspecified chronic kidney disease (ICD-10 - I12.9) October, Stage 3 chronic kidney disease, unspecified whether stage 3a or 3b CKD (ICD-10 - N18.30) [facility] Other 05-06-2022 Evaluation note* Encounter Date Diagnosis Assessment Notes Treatment Notes Treatment Clinical Notes October, Pain in right leg (ICD-10 - M79.604) October, Pain in left leg (ICD-10 - M79.605) [facility] Other 04-20-2022 Evaluation note* Encounter Date Diagnosis Assessment Notes Treatment Notes Treatment Clinical Notes Sep, Diabetic nephropathy (ICD-10 - E11.21) [facility] Other 04-19-2022 Evaluation note* Encounter Date Diagnosis Assessment Notes Treatment Notes Treatment Clinical Notes Sep, Anxiety (ICD-10 - F41.9) Sep, Hypertensive chronic kidney disease with stage 1 through stage 4 chronic kidney disease, or unspecified chronic kidney disease (ICD-10 - I12.9) [facility] Other 03-07-2022 Evaluation note* Encounter Date Diagnosis Assessment Notes Treatment Notes Treatment Clinical Notes Aug, Anxiety (ICD-10 - F41.9) [facility] Other 02-22-2022 Evaluation note* Encounter Date Diagnosis [...] I did provide samples of the trulicity. 22 Feb, 2022 Weight loss (ICD-10 - R63.4) Patient presents in the office with a 12 pound weight loss from last visit. [facility] Other 01-19-2022 Evaluation note* Encounter Date Diagnosis Assessment Notes Treatment Notes Treatment Clinical Notes Jun, Diabetic nephropathy (ICD-10 - E11.21) [facility] Other Discharge summary Author João Powell [facility] March 06, 2024 4:23pm Note Date/Time March 06, 2024 3: 58pm [facility] [address] [place] [address] Discharge Summary Signed Patient: Solomon Pickard SR MR#: [id number] : 1965 Acct:[id number] Age/Sex: 58 / M Adm Date: 4 Loc: Room: [address] [place] [address]: João Powell MD Copies to: Jenaro Lynch,DO João Powell MD~ Providers Date of Discharge: 03/06/24 Discharging Provider: João Powell Primary Care Provider: Jenaro Lynch Consults: 03/03/24 17:53 Consult to Neurology Routine Comment: Consulting Provider: Lyssa Sharpe Reason For Exam: tremors and syncope Has Provider Been Notified: Yes Date of Notification: 03/03/24 Time of Notification: 18:07 03/04/24 14:49 Consult to Occupational Therapy Routine Comment: Physician Instructions: Consult to OT for:: Evaluation and Treat Consult to Physical Therapy Routine Comment: Physician Instructions: Consult to PT for:: Evaluation and Treat 03/04/24 21:59 Consult to Gastroenterology Routine Comment: Consulting Provider: Mike Burleson Reason For Exam: acute blood loss anemia with syncope on DAPT Has Provider Been Notified: Yes Date of Notification: 03/05/24 Time of Notification: 07:32 03/05/24 09:53 Consult to Gastroenterology Routine Comment: Consulting Provider: Mike Burleson Reason For Exam: Iron deficiency Anemia, syncope Has Provider Been Notified: Yes Date of Notification: 03/05/24 Time of Notification: 10:46 Discharge Diagnosis (1) Syncope: Final Diagnosis Final Discharge Diagnosis: Syncope ROEL Summary Hospital Course Hospital course: Patient is a 58-year-old male with past medical's of coronary disease and PCI, PVD, type 2 diabetes, HTN, Heart failure as per the chart (could not specify hisEF or any recent echo on chart) diabetic neuropathy status post right BKA recently at [facility]. He presents today with episodes of lightheadedness followed by altered mentation described as slightly compressible worse and then passing out for seconds and then waking up groggy, with some sort of a probing of the eyes described as partial as per his daughter who witnessed this episode,however no drooling of saliva or loss of urine or stool involuntarily. As per the ED attending and the patient blood pressure was in the 70s (systolic), and his sugar was low however did not tell me exact number. Is the first time this happens him, and he also started having bilateral hand tremors yesterday as per his . He does complain of abdominal pain however no nausea no vomiting no change in bowel habits or urinary habits. In the ED, his blood pressure was 92/59 later improved with 1 L bolus of NS. Hewas not tachycardic. His CBC showed hemoglobin 7.8 which is a little less than his last number of 9.1 on February 08, 2024 however close to his baseline on theprevious visit. His MCV was 69 which is compatible iron deficiency anemia. He also had platelets of 452 and his white count was normal. He did have worseningin his kidney function with a BUN of 1.97 from 1.84 few weeks ago as well as increasing BUN to 46 from 21 also 3 weeks ago and the patient was relatively dehydrated exam. His UA showed glucosuria however not significant. His troponin x 2 were negative his EKG was not significant for any acute ischemic pathology. Decision was to admit this patient under hospitalist service for further workup and management. Given his symptomatic anemia, anemia workup was done showing severe iron deficiency, patient said 2 doses of IV Venofer as well as received 1unit of packed RBCs which improved his hemoglobin. I also consulted GI who recommended outpatient colonoscopy. GI recommended to restart patient only on aspirin for now. Also recommended continuing his PPI. I discussed that with the patient and he will see his vascular surgery very soon as he mentioned. Also neurology consulted MRI brain was done that was negative for any acute pathology. Will hold Flomax as per neurology recommendations. Also I held patient's glimepiride to avoid hypoglycemia. I discussed the plan of plan with the patient and his in details. Patient will go to home with home health. He is clinically and hemodynamically stable to be discharged today. He will need GI and hematology outpatient appointments. Condition Condition at Discharge: Stable Status at Discharge Overall status at discharge: patient is back to baseline Time Spent with Patient Time spent providing/coordinating discharge services (# min): 40 Discharge Plan Discharge Plan Patient Disposition: Home Activity: Ambulate as Tolerated Diet: Diabetic Additional Instructions: Continue to monitor glucose levels before meals and at bedtime Instructions: Know your Meds Prescriptions: New ferrous sulfate 325 mg (65 mg iron) tablet 325 mg PO Q2D 30 Days Qty: 15 0RF Continued albuterol sulfate [ProAir HFA] 90 mcg/actuation Hfa Aerosol Inhaler 2 puff INHALATION Q6HR PRN (Reason: Shortness Of Breath) atorvastatin 80 mg Tablet 80 mg PO DAILY Atrovent HFA 17 mcg/actuation HFA aerosol inhaler 2 inh inhalation TID baclofen 10 mg tablet 10 mg PO Q6HR PRN (Reason: muscle spasm) insulin glargine [Basaglar KwikPen U-100 Insulin] 100 unit/mL (3 mL) insulin pen 35 unit subcut QAM insulin lispro [Humalog KwikPen Insulin] 100 unit/mL insulin pen 1 sliding scale dose subcut DIRECTED Nutra Pro High Protein Powder 1 ea PO BID oxycodone 10 mg tablet 10 mg PO Q6HR PRN (Reason: pain) polyethylene glycol 3350 [ClearLax] 17 gram/dose powder 17 g PO DAILY sennosides [Senna Laxative] 8.6 mg tablet 8.6 mg PO BID tiotropium bromide [Spiriva with HandiHaler] 18 mcg capsule, w/inhalation device 1 cap inhalation DAILY Rx Instructions: puncture 1 cap using device; one dose = 2 inhalations furosemide [Lasix] 20 mg tablet 40 mg PO QAM aspirin 81 mg Tablet,Chewable 81 mg PO DAILY nitroglycerin [Nitrostat] 0.4 mg tablet, sublingual 0.4 mg sublingual Q5-15M PRN (Reason: chest pain) Rx Instructions: do not exceed 3 doses per episode valsartan-hydrochlorothiazide 160-12.5 mg tablet 1 tab PO DAILY Jardiance 10 mg tablet 10 mg PO DAILY Trulicity 0.75 mg/0.5 mL pen injector 0.75 mg subcut QWEEK Nurtec ODT 75 mg tablet,disintegrating 75 mg PO DAILY PRN (Reason: migraine headache) metformin 1,000 mg tablet 1,000 mg PO BID 90 Days Qty: 180 1RF omeprazole 40 mg capsule,delayed release(DR/EC) 40 mg PO DAILY Qty: 90 1RF (DME) FreeStyle Pedro 2 Sensor Kit See Rx Instructions .ROUTE Qty: 1 0RF Rx Instructions: As directed (DME) FreeStyle Pedro 2 [place] Misc See Rx Instructions .ROUTE Qty: 1 0RF Rx Instructions: As directed ropinirole 1 mg tablet 1 mg PO TID Qty: 240 0RF Changed metoprolol tartrate 100 mg tablet 12.5 mg PO BID Qty: 180 1RF Discontinued pregabalin [Lyrica] 200 mg capsule 200 mg PO TID 90 Days Qty: 270 1RF glimepiride 2 mg Tablet 2 mg PO BID amitriptyline 25 mg tablet 100 mg PO DAILY tamsulosin 0.4 mg capsule 0.4 mg PO BID isosorbide mononitrate 30 mg tablet extended release 24 hr 30 mg PO DAILY clopidogrel [Plavix] 75 mg tablet 75 mg PO DAILY Qty: 90 1RF Other Ambulatory Orders: PT/OT/SP OutPatient Referral (Routine) Timeframe: 1 Day Location: Determined by Patient Ordered By: João Powell Follow Up: [facility] [Outside] - 04/02/24 10:00 am Jenaro Lynch DO [Primary Care Provider] - 03/19/24 1:45 pm (You have been scheduled for a follow up appointment for the following date and time, please call to reschedule if needed.) Gladys Roland APRN [Nurse Practitioner] - 03/13/24 10:00 am (For irondeficiency anemia) Olvin Del Real APRN [Nurse Practitioner] - (The office is aware of your hospital stay and need for follow up, the office will call you to schedule. Please call the office if you have not heard from them by the next business day.) Exam Physical Exam Vital Signs: Temp Pulse Resp BP Pulse Ox O2 Del Method 98.1 F 78 16 140/73 97 Room Air 03/06/24 15:51 03/06/24 15:51 03/06/24 15:51 03/06/24 15:51 03/06/24 15:51 03/06/24 15:51 Narrative: General: Alert and oriented x3, lying in bed comfortably, still ill appearing, not in acute distress, calm, and cooperative HEENT: Pale conjunctiva with PERRLA, no lymphadenopathy, no thyromegaly, neck issupple Chest: Good bilateral air entry, no wheezes or crackles, saturating 97% on RA CVS: Normal S1 and S2, no murmurs Abdomen: Hard, there is some fullness on exam with poorly localized tenderness on palpation, no rebound tenderness Extremities: Right BKA the stump has some erythema but I could not feel any collection or swelling, left lower extremity showing signs of neuropathy/claudication with poor hair distribution and faint DP and PT pulses Neuro: Alert and oriented x3, following commands, no focal motor or sensory deficits, tremors improved Diagnostic Studies Completed and Pending Studies Labs on day of discharge: 03/06/24 11:18: POC Glucose 169 03/06/24 06:46: Corrected WBC 6.8, Uncorrected WBC Count 6.8, RBC 3.68 L, Hgb 8.3 L, Hct 25.8 L, MCV 70.2 L, MCH 22.4 L, MCHC 32.0 L, RDW 21.1 H, Plt Count 325, MPV 8.1, Neut % (Auto) N/A, Lymph % (Auto) N/A, Wells % (Auto) N/A, Eos % (Auto) N/A, Baso % (Auto) N/A, Nucleat RBC Rel Count N/A, Neut # (Auto) N/A, Lymph # (Auto) N/A, Wells # (Auto) N/A, Eos # (Auto) N/A, Baso # (Auto) N/A, Lymphocytes % 18, Monocytes % 8, Eosinophils % 1, Basophils % 1, Segmented Neutrophils 72 H, Platelet Estimate Normal, Large Platelets Slight, Plt Morphology Comment N/A, RBC Morphology N/A, Polychromasia Slight, Hypochromasia Slight, Anisocytosis Marked, Microcytosis Slight, Tear Drop Cells Slight, PHA Creatinine Clear 62.24, Sodium 137, Potassium 4.2, Chloride 107, Carbon Dioxide 24.3, Anion Gap 9.9, BUN 17, Creatinine 1.42 H, Est GFR (CKD-EPI) 57.276, Glucose 99, Calcium 8.7, Phosphorus 3.2, Magnesium 1.6 L, Total Bilirubin 0.4, AST 14, ALT 11, Alkaline Phosphatase 101, Total Protein 6.1 L, Albumin 3.3 L, Globulin 2.8, Albumin/Globulin Ratio 1.2 03/06/24 06:44: POC Glucose 128 03/05/24 20:27: POC Glucose 151 03/05/24 16:18: POC Glucose 106 Documented By: João Powell MD 03/06/24 1557 Signed By: <Electronically signed by João Powell MD> 03/06/24 1623 [facility] Work Phone: Evaluation + Plan note Future Appointments Appointment Date:12/21/2022 11:00:00 AM Scheduled Provider: Location:[facility] Appointment Type:URO Nurse Visit Appointment Date:01/30/2023 10:30:00 AM Scheduled Provider:Yeyo ROWE MD Location:[facility] Appointment Type:URO Office Visit [facility] Evaluation + Plan note Future Appointments Appointment Date:01/30/2023 10:15:00 AM Scheduled Provider:Yeyo ROWE MD Location:[facility] Appointment Type:URO Office Visit [facility] Evaluation + Plan note Future Appointments Appointment Date:02/01/2023 10:00:00 AM Scheduled Provider: Location:[facility] Appointment Type:Urology CALL PAT FT Appointment Date:02/08/2023 09:00:00 AM Scheduled Provider: Location:[facility] Appointment Type:Urology FT Appointment Date:02/14/2023 09:15:00 AM Scheduled Provider: Location:[facility] Appointment Type:Urology FT [facility] evaluation + Plan note Future Appointments Appointment Date:02/14/2023 09:15:00 AM Scheduled Provider: Location:[facility] Appointment Date:03/20/2023 08:45:00 AM Scheduled Provider: Location:[facility] Appointment Type:URO Nurse Visit Appointment Date:04/05/2023 08:00:00 AM Scheduled Provider:Yeyo ROWE MD Location[facility] App[facility]ments Appointment Date:05/03/2023 08:45:00 AM Scheduled Provider:Yeyo ROWE MD Location:[facility] Appointment Type:URO Office Visit [facility] Evaluation + Plan note Future Appointments Appointment Date:07/03/2023 10:15:00 AM Scheduled Provider:Yeyo ROWE MD Location:[facility] Appointment Type:URO Office Visit [facility] evaluation + Plan note Future Appointments Appointment Date:10/23/2023 09:30:00 AM Scheduled Provider:Padmini Montes MD Location[facility] Appointment Type:Vascular Follow Up (FT) [facility] noteNo InformationNossm health care [employer] Other Evaluation noteNo assessment information available [facility] Work Phone: Evaluation note* Diagnosis History of PTCA Postsurgical percutaneous transluminal coronary angioplasty status Hyperlipidemia, unspecified hyperlipidemia type Encounter for pre-operative cardiovascular clearance Former smoker Personal history of tobacco use, presenting hazards to health documented in this encounter [facility] Work Phone: Evaluation note* Diagnosis Onset Date Resolution Status Anemia acute Atrial fibrillation acute Chronic back pain acute Cigarette nicotine dependenc e with nicotine-induced disorder acute Diabetic nephropathy associa jorge with secondary diabetes mellitus acute GERD (gastroesophageal reflux disease) acute Hyperlipidemia acute Restless legs syndrome acute Syncope acute CAD (coronary artery disease) chronic Chronic kidney disease chron ic Diabetes chronic Hypertension chronic [facility] Work Phone: Evaluation note* Diagnosis Onset Date Resolution Status Anemia acute Atrial fibrillation acute Chronic back pain acute Cigarette nicotine dependenc e with nicotine-induced disorder acute Diabetic nephropathy associa jorge with secondary diabetes mellitus acute GERD (gastroesophageal reflux disease) acute Hyperlipidemia acute Restless legs syndrome acute Syncope acute CAD (coronary artery disease) chronic Chronic kidney disease chron ic Diabetes chronic Hypertension chronic Altered mental status acute Hypothermia acute [facility] Work Phone: Evaluation note* Diagnosis Onset Date Resolution Status Anemia acute Atrial fibrillation acute Chronic back pain acute Cigarette nicotine dependenc e with nicotine-induced disorder acute Diabetic nephropathy associa jorge with secondary diabetes mellitus acute GERD (gastroesophageal reflux disease) acute Hyperlipidemia acute Restless legs syndrome acute Syncope acute CAD (coronary artery disease) chronic Chronic kidney disease chron ic Diabetes chronic Hypertension chronic Altered mental status acute Anemia acute GERD (gastroesophageal reflux disease) acute Hyperbilirubinemia acute Hypothermia acute LFT elevation acute Restless legs syndrome acute Syncope acute [facility] Work Phone: Evaluation note* Diagnosis Diabetic polyneuropathy associated with type 2 diabetes mellitus ([facility])- Primary Disorientation Other general symptoms Other abnormalities of gait and mobility Status post partial amputation of right foot ([facility]) Atherosclerosis of [place] coronary artery of [place] heart without angina pectoris Atrial fibrillation ([facility]) Primary hypertension Unspecified essential hypertension documented in this encounter [facility]* Diagnosis Diabetic polyneuropathy associated with type 2 diabetes mellitus ([facility])- Primary Encounter for orthopedic aftercare following surgical amputation Other abnormalities of gait and mobility Restless leg syndrome Restless legs syndrome (RLS) documented in this encounter [facility]* Diagnosis Onset Date Resolution Status Anemia acute Atrial fibrillation acute Chronic back pain acute Cigarette nicotine dependenc e with nicotine-induced disorder acute Diabetic nephropathy associa jorge with secondary diabetes mellitus acute GERD (gastroesophageal reflux disease) acute Hyperlipidemia acute Restless legs syndrome acute CAD (coronary artery disease) chronic Chronic kidney disease chron ic Diabetes chronic Hypertension chronic Syncope resolved Altered mental status acute Anemia acute GERD (gastroesophageal reflux disease) acute LFT elevation acute Restless legs syndrome acute Syncope resolved Abnormal finding on imaging acute GERD (gastroesophageal reflux disease) acute [facility] Work Phone: Evaluation note* Diagnosis 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)- Primary Poor circulation Unspecified circulatory system disorder Heavy tobacco smoker >10 cigarettes per day 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)- Primary Cigarette smoker motivated to quit 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)- Primary Cigarette smoker Tobacco use disorder History of right below knee amputation (CMS-HCC)- Primary documented in this encounter [facility]* Diagnosis Onset Date Resolution Status Anemia acute Atrial fibrillation acute Chronic back pain acute Cigarette nicotine dependenc e with nicotine-induced disorder acute Diabetic nephropathy associa jorge with secondary diabetes mellitus acute GERD (gastroesophageal reflux disease) acute Hyperlipidemia acute Restless legs syndrome acute CAD (coronary artery disease) chronic Chronic kidney disease chron ic Diabetes chronic Hypertension chronic Syncope resolved Altered mental status acute Anemia acute GERD (gastroesophageal reflux disease) acute LFT elevation acute Restless legs syndrome acute Syncope resolved Abnormal finding on imaging acute GERD (gastroesophageal reflux disease) acute Diabetes acute [facility] Work Phone: History general Narrative - [...] Heart stent placed by Dr. Bowie at [facility] 07/26/15 Surgical History Left knee arthroscopy 11/2015 Surgical History carpal tunnel release, right an d left 08/2016 Surgical History hydrocele repair 08/2016 Surgical History cardiac cath [facility] 04/02/18 Surgical History Lt LE iliac DSA, angioplasty & stenting 09/27/2018 Surgical History Left Angiogram with one stent - Dr. Boss 07/2020 Hospitalization History Deep Depression, Anxiety; [facility] 11-11-10 Hospitalization History [facility] hypoxemia and hyper capnic respirtory failure 11/11/16 Hospitalization History chest pain [facility] 04/02/18 [facility] Other History of Present illness NarrativeReturns in [...] impact on blood pressure and diabetes [facility] SWEEPiO DO Work Phone: History of Present illness [...] medication regimen. He denies medication side effects. [facility] 600 [facility] Work Phone: History of Present [...] denies medication side effects. [facility] 250 DO Work Phone: Hospital course Narrative No data available for this section [facility] Discharge instructions No data available for this section [facility] InstructionsNot on filedocumented in this encounter [facility] filed[facility] in [facility] encounter [facility] on filedocumented in this encounter [facility]Not on filedocumented in this encounter [facility]ructionsNot on filedocumented in this encounter [facility] note No data available for this section [facility] Chief Complaint SOLOMON PICKARD is being seen for a 9 month follow-up of.* Routine f/u: 'I have been getting so tired' * SOLOMON PICKARD is being seen for a 6 month [...] I felt in a while' * SOLOMON PICKARD is being seen for a 1 month [...] Referral Specialty Diagnoses / Procedures Referred By Conttoshia t Referred To Contact Diagnoses Encounter for pre-operative cardiovascular clearance Procedures ECG 12 Lead Raulito Inman MD [address] [address] Referral ID Status Reason Start Date Expiration Date V isits Requested Visits Authorized [id number] Authorized 10/24/2023 10/23/2024 1 1 Specialty Diagnoses / Procedures Referred By Brett mandujano Referred To Contact Cardiology Diagnoses History of PTCA Procedures Follow Up In Cardiology Raulito Inman MD [address] [facility] [address] [place] [address] Referral ID Status Reason Start Date Expiration Date V isits Requested Visits Authorized [id number] Authorized 10/24/2023 10/23/2024 1 1 Reason CANCELLED consult and treat; previous patient of Dr. Sharpe last seen in 2020; persisting intractable headaches Diagnosis 1 Acute intractable he adache, unspecified headache type (R51.9) Referral Organization [facility] [place] Referring Provider First Name Jenaro Referring Provider Last Name Syed Referring Provider Specialty Family Prac dale Referred Organization [facility] Referred Provider Lyssa Sharpe Referred Address [address] [facility], [place], [place],[address] Referred Provider Specialty Neurology Referral Priority Routine General Notes Verona Burton 023 10:19:08 AM >Received today. [facility] request us to fill out their form and attach to Referral and send it to them and they will call patient to schedule. Referral was sent P2P and fax insurance card since it would not let me attach to referral [facility] 10:23:53 AM >Spoke with Marilynn at [facility] and patient has been scheduled and cancelled the appt for 07/26/22 [facility] 07/28/2022 10:27:39 AM >Telephone encounter was sent Reason 03/31/22 @ 2:45pm consult and treat Diagnosis 1 Type 2 diabetes bobby itus with circulatory disorder (E11.59) Referral Organization [facility] [place] Referring Provider First Name Jenaro Referring Provider Last Name Syed Referring Provider Specialty Family Prac dale Referred Organization [facility] Referred Provider Doris Barnes Referred Address [address],[place], [place],[address] Referred Provider Specialty Nurse Jono calderon Referral Priority Routine Referral Appointment Date 2022-03-31 General Notes Verona Burton 022 02:28:10 PM >Received today and sent P2P [facility] 02/16/2022 07:50:21 AM >Patient has been scheduled [...] Complaint Unknown Amb Documentation Unknown Unknown Unknown Chief Complaint Unknown Amb Documentation Amb Documentation Amb Documentation Amb Documentation Lightheaded Chief Complaint Unknown Amb Documentation Amb Documentation Amb Documentation Amb Documentation Lightheaded Lightheaded Reason for Visit Anemia Atrial fibrillation Chronic back pain Cigarette nicotine dependence with nicotine-induced disorder 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 GERD (gastroesophageal reflux disease) Hyperlipidemia Restless legs syndrome Syncope CAD (coronary artery disease) Chronic kidney disease Diabetes Hypertension Chief Complaint Unknown Amb Documentation Amb Documentation Amb Documentation Amb Documentation Lightheaded Lightheaded Altered / Change Mental Status Reason for Visit Anemia Atrial fibrillation Chronic back pain Cigarette nicotine dependence with nicotine-induced disorder 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 GERD (gastroesophageal reflux disease) Hyperlipidemia Restless legs syndrome Syncope CAD (coronary artery disease) Chronic kidney disease Diabetes Hypertension Altered mental status Hypothermia Chief Complaint Unknown Amb Documentation Amb Documentation Amb Documentation Amb Documentation Lightheaded Lightheaded Altered / Change Mental Status Altered / Change Mental Status Altered / Change Mental Status Reason for Visit Anemia Atrial fibrillation Chronic back pain Cigarette nicotine dependence with nicotine-induced disorder 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 GERD (gastroesophageal reflux disease) Hyperlipidemia Restless legs syndrome Syncope CAD (coronary artery disease) Chronic kidney disease Diabetes Hypertension Altered mental status Anemia GERD (gastroesophageal reflux disease) Hyperbilirubinemia Hypothermia LFT elevation Restless legs syndrome Syncope Chief Complaint Amb Documentation Amb Documentation Amb Documentation Amb Documentation Lightheaded Lightheaded Altered / Change Mental Status Altered / Change Mental Status Altered / Change Mental Status discuss for EGD/Abnormal imaging Reason for Visit Anemia Atrial fibrillation Chronic back pain Cigarette nicotine dependence with nicotine-induced disorder 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 GERD (gastroesophageal reflux disease) Hyperlipidemia Restless legs syndrome CAD (coronary artery disease) Chronic kidney disease Diabetes Hypertension Syncope Altered mental status Anemia GERD (gastroesophageal reflux disease) LFT elevation Restless legs syndrome Syncope Abnormal finding on imaging GERD (gastroesophageal reflux disease) Chief Complaint Amb Documentation Lightheaded Lightheaded Altered / Change Mental Status Altered / Change Mental Status Altered / Change Mental Status discuss for EGD/Abnormal imaging Amb Documentation hosp follow up Reason for Visit Anemia Atrial fibrillation Chronic back pain Cigarette nicotine dependence with nicotine-induced disorder 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 GERD (gastroesophageal reflux disease) Hyperlipidemia Restless legs syndrome CAD (coronary artery disease) Chronic kidney disease Diabetes Hypertension Syncope Altered mental status Anemia GERD (gastroesophageal reflux disease) LFT elevation Restless legs syndrome Syncope Abnormal finding on imaging GERD (gastroesophageal reflux disease) Diabetes Advance Directives Advance Directive Response Recorded Date/ Time Advance Directives No June 09, 2017 5:49pm Advance Directive Response Recorded Date/ Time Advance Directives No June 09, 2017 4:49pm Date Activated Date Inactivated Comments 11/07/2023 4:31 PM 11/14/2023 9:31 PM Date Activated Date Inactivated Comments 11/07/2023 4:31 PM 11/14/2023 9:31 PM Summary Purpose Additional Source Comments REASON FOR VISIT (unrecogniz ed section and content) Reason Comments Follow-up 9 months POC lower a ngio [facility] Specialty Diagnoses / Procedures Referred By Contac t Referred To Contact Diagnoses Encounter for pre-operative cardiovascular clearance Procedures ECG 12 Lead Raulito Inman MD [address] [facility] [address], [address] [address] Referral ID Status Reason Start Date Expiration Date V isits Requested Visits Authorized [id number] Authorized 10/24/2023 10/23/2024 1 1 Reason Onset Date Comments Blood Sugar Problem 03/22/2024 High blood s ugars Care Teams (unrecognized sec tion and content) Team Status: Active Member Role Status Dates Jenaro Lynch DO Primary Care Provider Active Team Status: Active Member Role Status Dates Truman Bryant MD Attending Provider Active Sta rt: December 22, 2023 Team Status: Active Member Role Status Dates Truman Bryant MD Attending Provider Active Sta rt: December 23, 2023 Team Status: Active Member Role Status Dates ASHLI Escobar Attending Provider Active Start: December 25, 2023 Team Status: Active Member Role Status Dates ASHLI Escobar Attending Provider Active Start: December 28, 2023 Team Status: Active Member Role Status Dates Sudeep Camacho DO Attending Provider Active S tart: December 30, 2023 Team Status: Active Member Role Status Dates Shaikh Germaine MD Attending Provider Active Sta rt: December 31, 2023 Team Status: Active Member Role Status Dates Roberto Max DO Attending Provider Active Sta rt: December 31, 2023 Team Status: Active Member Role Status Dates ASHLI Escobar Attending Provider Active Start: January 03, 2024 Team Status: Active Member Role Status Dates ASHLI Escobar Attending Provider Active Start: January 24, 2024 Team Status: Active Member Role Status Dates Padmini Montes MD Attending Provider Active S tart: February 01, 2024 Team Status: Active Member Role Status Dates Jenaro Lynch DO Attending Provider Active Start: February 08, 2024 Team Status: Inactive Member Role Status Dates Kait Dan MD Emergency Provider Active Start: March 04, 2024 End: March 06, 2024 Jenaro Lynch DO Primary Care Provider Active Sta rt: March 04, 2024 End: March 06, 2024 João Powell MD Admit Provider, Atte nding Provider Active Start: March 04, 2024 End: March 06, 2024 Lyssa Sharpe MD Other Provider Active Start : March 04, 2024 End: March 06, 2024 Mike Burleson MD Other Provider Active Start : March 04, 2024 End: March 06, 2024 Team Status: Active Member Role Status Dates Kait Dan MD Emergency Provider Active Start: March 05, 2024 Jenaro Lynch DO Primary Care Provider Active Sta rt: March 05, 2024 João Powell MD Admit Provider, Other Provider Activ e Start: March 05, 2024 Lyssa Sharpe MD Other Provider Active Start : March 05, 2024 Mike Burleson MD Attending Provider, Other Provider Active Start: March 05, 2024 Team Status: Inactive Member Role Status Dates Jenaro Lynch DO Primary Care Provider Active Sta rt: March 08, 2024 End: March 13, 2024 Anh Rubin DO Emergency Provider Active Sta rt: March 08, 2024 End: March 13, 2024 João Powell MD Admit Provider Active Start: Goyo [email or web address] End: March 13, 2024 Luther Dozier DO Other Provider Active Start: March 08, 2024 End: March 13, 2024 Job James MD Other Provider Active Start: March 08, 2024 End: March 13, 2024 Mike Burleson MD Other Provider Active Start : March 08, 2024 End: March 13, 2024 Remberto Ervin MD Attending Provider Active Sta rt: March 08, 2024 End: March 13, 2024 Team Status: Active Member Role Status Dates Jenaro Lynch DO Primary Care Provider Active Sta rt: March 09, 2024 Anh Rubin DO Emergency Provider Active Sta rt: March 09, 2024 João Powell MD Admit Provider, Other Provider Activ e Start: March 09, 2024 Luther Dozier DO Other Provider Active Start: March 09, 2024 Job James MD Attending Provider, Other Provider Active Start: March 09, 2024 Team Status: Active Member Role Status Dates Jenaro Lynch DO Primary Care Provider Active Sta rt: March 10, 2024 Anh Rubin DO Emergency Provider Active Sta rt: March 10, 2024 João Powell MD Admit Provider, Other Provider Activ e Start: March 10, 2024 Luther Dozier DO Other Provider Active Start: March 10, 2024 Job James MD Other Provider Active Start: March 10, 2024 Mike Burleson MD Attending Provider, Other Provider Active Start: March 10, 2024 Team Status: Inactive Member Role Status Dates Jenaro Lynch DO Primary Care Provider Active Sta rt: March 21, 2024 End: March 21, 2024 Olvin Del Real APRN Attending Provider Active Start: March 21, 2024 End: March 21, 2024 Team Status: Inactive Member Role Status Dates Paula Soto DPM MS Attending Provider Active Start: December 15, 2023 End: December 15, 2023 Team Status: Active Member Role Status Dates Марина Flores PA-C Attending Provider Active Start: December 21, 2023 Team Status: Active Member Role Status Dates Delfina Farah MD Attending Provider Active Sta rt: December 09, 2023 Team Status: Active Member Role Status Dates Darrell Navarrete MD Attending Provider Active Star t: December 10, 2023 Team Status: Active Member Role Status Dates Roberto Max DO Attending Provider Active Sta rt: December 10, 2023 Team Status: Active Member Role Status Dates Kait Dan MD Emergency Provider Active Start: March 03, 2024 Jenaro Lynch DO Primary Care Provider Active Sta rt: March 03, 2024 João Powell MD Admit Provider, Atte nding Provider Active Start: March 03, 2024 Team Status: Inactive Member Role Status Dates Jenaro Lynch , DO Primary Care Provider Active Shana Mclaughlin PA-C Attending Provider Active Team Status: Inactive Member Role Status Dates Jenaro Lynhc , DO Primary Care Provider Active Jenaro Lynch , DO CHC Attending Provider Active Team Status: [...] Status: Active Member Role Status Dates Jenaro Lycnh DO Primary Care Provide r, Attending Provider [...] Status: Active Member Role Status Dates Jenaro Fraustos , DO Primary Care Provide r, Attending [...] Team Status: Inactive Member Role Status Elda Soto DPM MS Attending Provider Active Start: [...] Team Status: Inactive Member Role Status Elda Soto DPM MS Attending Provider Active Start: October 05, 2023 End: October 05, 2023 Team Status: Active Member Role Status Elda Bryant MD Attending Provider Active Sta rt: October 06, 2023 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 Start Date End Date Jenaro Lynch DO PCP - General 04/17/19 Team Status: Active Member Role Status Dates Fely Doe DO Patrick Attending Provider Active Start: November 15, 2023 Team Status: Active Member Role Status Dates Hernan Crook Attending Provider Active Start: November 26, 2023 Team Status: Active Member Role Status Dates Jenaro Lynch DO Primary Care Provider Active Sta rt: March 08, 2024 Anh Rubin DO Emergency Provider Active Sta rt: March 08, 2024 João Powell MD Admit Provider, Atte nding Provider Active Start: March 08, 2024 Team Status: Active Member Role Status Dates Jenaro Lynch DO Primary Care Provider Active Sta rt: March 29, 2024 Syl Kaplan LPN Attending Provider Active Sta rt: March 29, 2024 Team Status: Inactive Member Role Status Dates Jenaro Lynch DO Primary Care Provide r, Attending Provider Active Start: April 04, 2024 End: April 04, 2024 Goals (unrecognized section and content) Goals may [...] and content) DATE CREATED AUTHOR 11/11/2022 [facility] DATE CREATED AUTHOR AUTHOR'S ORGANIZ ATION 01/27/2023 [facility] DATE CREATED AUTHOR AUTHOR'S ORGANIZ ATION 02/16/2023 [facility] DATE CREATED AUTHOR AUTHOR'S ORGANIZ ATION 02/16/2023 [employer] DATE CREATED AUTHOR AUTHOR'S ORGANIZ ATION 10/22/2023 [employer] [facility] DATE CREATED AUTHOR AUTHOR'S ORGANIZ ATION 11/16/2023 [facility] DATE CREATED AUTHOR AUTHOR'S ORGANIZ ATION 11/25/2023 [facility] DATE CREATED AUTHOR AUTHOR'S ORGANIZ ATION 01/10/2024 [employer] [facility] DATE CREATED AUTHOR AUTHOR'S ORGANIZ ATION 01/22/2024 [facility] DATE CREATED AUTHOR AUTHOR'S ORGANIZ ATION 02/13/2024 [facility] DATE CREATED AUTHOR AUTHOR'S ORGANIZ ATION 02/14/2024 [facility] DATE CREATED AUTHOR AUTHOR'S ORGANIZ ATION 02/15/2024 [facility] DATE CREATED AUTHOR AUTHOR'S ORGANIZ ATION 02/16/2024 [facility] DATE CREATED AUTHOR AUTHOR'S ORGANIZ ATION 02/17/2024 [facility] DATE CREATED AUTHOR AUTHOR'S ORGANIZ ATION 02/18/2024 [facility] DATE CREATED AUTHOR AUTHOR'S ORGANIZ ATION 02/19/2024 [facility] DATE CREATED AUTHOR AUTHOR'S ORGANIZ ATION 02/20/2024 [facility] DATE CREATED AUTHOR AUTHOR'S ORGANIZ ATION 02/21/2024 [facility] DATE CREATED AUTHOR AUTHOR'S ORGANIZ ATION 02/22/2024 [facility] DATE CREATED AUTHOR AUTHOR'S ORGANIZ ATION 02/23/2024 [facility] DATE CREATED AUTHOR AUTHOR'S ORGANIZ ATION 02/24/2024 [facility] DATE CREATED AUTHOR AUTHOR'S ORGANIZ ATION 03/14/2024 [facility] DATE CREATED AUTHOR AUTHOR'S ORGANIZ ATION 03/28/2024 [facility] DATE CREATED AUTHOR AUTHOR'S ORGANIZ ATION 04/02/2024 [facility] DATE CREATED AUTHOR AUTHOR'S ORGANIZ ATION 04/03/2024 [facility] FOR RECORDS PERTAINING TO [...] BE BASED ON THE PRIMARY CLINICAL RECORDS. [facility] provides no warranty or guarantee of the accuracy or completeness of information in this document.
[2024-04-12 17:34] VITALS: BP 116/68; PULSE 80; TEMP 36.7; O2SAT 100; BMI 25.9
--- NOTE | 2024-04-12 17:54 | XR_ITS ---
The [address] [address] Patient Name: MYRA FELIPE MRN: [id number] date: 1965 Sex: M Assigned Patient Location: ER Current Patient Location: Accession/Order Number: [id number] Exam Date: 04/12/2024 18:03 Report Date: 04/12/2024 19:12 At the request of: SU FRYE Procedure: XR foot LT min 3V Exam: Radiographs: XR foot LT min 3V Reason for exam: wound Comparison: None XR/XR foot LT min 3V IMPRESSION: Mild degenerative changes scattered throughout the left foot. Left foot radiographs are otherwise unremarkable. Electronically authenticated by: MAX HAMILTON Date: 04/12/2024 19:12
--- NOTE | 2024-04-12 18:46 | ED.GENADUL1 ---
HPI HPI - General Adult General Chief complaint: Skin/Abscess/Foreign Body Stated complaint: FOOT INJURY Time Seen by Provider: 04/12/24 17:31 Source: patient and family Mode of arrival: Wheelchair History of Present Illness HPI narrative: 58-year-old male presents here with a chief complaint of a accidental abrasion, sore to the left second digit. He states he was crawling in his bathroom and accidentally nicked his toe. Patient has a history of diabetic neuropathy with a hslpi-zaa-xnea amputation on the right lower extremity. He did call Dr. Elias who suggested he come in for evaluation. Patient denies any fevers or chills. Related Data Home Medications ?Medication ?Instructions ?Recorded ?Confirmed empagliflozin 10 mg tablet 10 mg PO DAILY 03/03/23 04/12/24 (Jardiance) nitroglycerin 0.4 mg sublingual 0.4 mg sublingual Q5M PRN chest 03/03/23 04/12/24 tablet pain omeprazole 40 mg capsule,delayed 40 mg PO DAILY 03/03/23 04/12/24 release pregabalin 200 mg capsule 200 mg PO TID 03/03/23 04/12/24 fremanezumab-vfrm 225 mg/1.5 mL 225 mg subcut .QMonth 08/03/23 04/12/24 subcutaneous auto-injector (Radha) isosorbide mononitrate 30 mg 30 mg PO DAILY 08/03/23 04/12/24 tablet,extended release 24 hr albuterol sulfate 90 mcg/actuation 2 inh inhalation Q8H PRN shortness 12/09/23 04/12/24 aerosol inhaler (Proventil HFA) of breath or wheezing aspirin 81 mg tablet,delayed 81 mg PO DAILY 12/09/23 04/12/24 release atorvastatin 80 mg tablet 80 mg PO DAILY 12/09/23 04/12/24 clopidogrel 75 mg tablet 75 mg PO DAILY 12/09/23 04/12/24 dulaglutide 0.75 mg/0.5 mL 0.75 mg subcut QWEEK 12/09/23 04/12/24 subcutaneous pen injector (Bharathi) metoprolol tartrate 100 mg tablet 50 mg PO BID 12/09/23 04/12/24 rimegepant 75 mg disintegrating 75 mg PO Q2H PRN migraine headache 12/09/23 04/12/24 tablet (Nurtec ODT) sildenafil 100 mg tablet 100 mg PO Q24H PRN erectile 12/09/23 04/12/24 dysfunction tamsulosin 0.4 mg capsule 0.4 mg PO BID 12/09/23 04/12/24 amitriptyline 25 mg tablet 25 mg PO DAILY 12/10/23 04/12/24 budesonide-formoterol HFA 160 2 inh inhalation BID 12/10/23 04/12/24 mcg-4.5 mcg/actuation aerosol inhaler (Symbicort) furosemide 40 mg tablet (Lasix) 40 mg PO DAILY 12/10/23 04/12/24 glimepiride 2 mg tablet 2 mg PO BIDWM 12/10/23 04/12/24 ropinirole 1 mg tablet 1 mg PO TID 12/10/23 04/12/24 tiotropium bromide 2.5 2 puff inhalation DAILY 12/22/23 04/12/24 mcg/actuation mist for inhalation (Spiriva Respimat) metformin 1,000 mg tablet 1,000 mg PO BID 02/01/24 04/12/24 valsartan 160 1 tab PO DAILY 02/01/24 04/12/24 mg-hydrochlorothiazide 12.5 mg tablet Previous Rx's ?Medication ?Instructions ?Recorded sitagliptin phosphate 100 mg 50 mg (1/2 x 100 mg) PO DAILY #0 12/31/23 tablet (Januvia) tabs cephalexin 500 mg capsule 500 mg PO BID 10 days #20 caps 04/12/24 sulfamethoxazole 800 1 tab PO Q12H 10 days #20 tabs 04/12/24 mg-trimethoprim 160 mg tablet (Bactrim DS) Allergies Allergy/AdvReac Type Severity Reaction Status Date / Time Penicillins Allergy Severe Swelling Verified 12/21/23 19:44 of Lip/Tongue/Throat bee venom protein (honey bee) Allergy Swelling Verified 12/21/23 19:44 of Lip/Tongue/Throat latex Allergy Rash Verified 12/21/23 19:44 Opioid HPI Opioid Management Most Recent Opioid Data: Last Pain Scale 8 12/31/23 11:44 12/31/23 Last Pain Intensity 9 03/04/23 10:36 03/04/23 Last ORT Total Score 0 12/30/23 21:42 12/30/23 Last ORT Risk Category Low Risk 12/30/23 21:42 12/30/23 Ur Phencyclidine Scrn Negative (NEGATIVE) 03/03/23 17:24 03/03/23 Review of Systems ROS Narrative All Systems are negative except as noted/marked.All systems reviewed and otherwise negative [facility] Medical History (Updated 04/12/24 @ 18:39 by Chandrika Castanon) Chest pain ?R07.9 - Chest pain, unspecified (ICD-10) Anemia ?D64.9 - Anemia, unspecified (ICD-10) Acute osteomyelitis of right foot ?M86.171 - Other acute osteomyelitis, right ankle and foot (ICD-10) CKD stage 3b, GFR 30-44 ml/min ?N18.32 - Chronic kidney disease, stage 3b (ICD-10) Chronic ulcer of right foot ?L97.519 - Non-pressure chronic ulcer of other part of right foot with unspecified severity (ICD-10) DM2 (diabetes mellitus, type 2) ?E11.9 - Type 2 diabetes mellitus without complications (ICD-10) Coronary artery disease ?I25.10 - Atherosclerotic heart disease of [place] coronary artery without angina pectoris (ICD-10) COPD (chronic obstructive pulmonary disease) ?J44.9 - Chronic obstructive pulmonary disease, unspecified (ICD-10) Hypertension ?I10 - Essential (primary) hypertension (ICD-10) Post-op bleeding Acute pain of right hip ?M25.551 - Pain in right hip (ICD-10) Foot osteomyelitis ?M86.9 - Osteomyelitis, unspecified (ICD-10) Ulcer of right foot with necrosis of bone ?L97.514 - Non-pressure chronic ulcer of other part of right foot with necrosis of bone (ICD-10) Hypocalcemia ?E83.51 - Hypocalcemia (ICD-10) Hypomagnesemia ?E83.42 - Hypomagnesemia (ICD-10) Sepsis ?A41.9 - Sepsis, unspecified organism (ICD-10) Wound of foot ?S91.309A - Unspecified open wound, unspecified foot, initial encounter (ICD-10) Abscess of right foot ?L02.611 - Cutaneous abscess of right foot (ICD-10) Anticoagulated ?Z79.01 - senior care (current) use of anticoagulants (ICD-10) Diabetic infection of right foot ?E11.628 - Type 2 diabetes mellitus with other skin complications (ICD-10) ?L08.9 - Local infection of the skin and subcutaneous tissue, unspecified (ICD-10) Puncture wound of right foot ?S91.331A - Puncture wound without foreign body, right foot, initial encounter (ICD-10) Cellulitis of foot, right ?L03.115 - Cellulitis of right lower limb (ICD-10) ROEL (acute kidney injury) ?N17.9 - Acute kidney failure, unspecified (ICD-10) Sepsis ?A41.9 - Sepsis, unspecified organism (ICD-10) CHF (congestive heart failure) ?I50.9 - Heart failure, unspecified (ICD-10) Migraine headache ?G43.909 - Migraine, unspecified, not intractable, without status migrainosus (ICD-10) Tobacco abuse ?Z72.0 - Tobacco use (ICD-10) Carpal tunnel syndrome ?G56.00 - Carpal tunnel syndrome, unspecified upper limb (ICD-10) Back pain ?M54.9 - Dorsalgia, unspecified (ICD-10) Arthritis ?M19.90 - Unspecified osteoarthritis, unspecified site (ICD-10) Restless leg ?G25.81 - Restless legs syndrome (ICD-10) GERD (gastroesophageal reflux disease) ?K21.9 - Gastro-esophageal reflux disease without esophagitis (ICD-10) High cholesterol ?E78.00 - Pure hypercholesterolemia, unspecified (ICD-10) Myocardial infarction ?I21.9 - Acute myocardial infarction, unspecified (ICD-10) BPH with obstruction/lower urinary tract symptoms ?N40.1 - Benign prostatic hyperplasia with lower urinary tract symptoms (ICD-10) ?N13.8 - Other obstructive and reflux uropathy (ICD-10) Dementia ?F03.90 - Unspecified dementia, unspecified severity, without behavioral disturbance, psychotic disturbance, mood disturbance, and anxiety (ICD-10) CKD stage 4 due to type 2 diabetes mellitus ?E11.22 - Type 2 diabetes mellitus with diabetic chronic kidney disease (ICD-10) ?N18.4 - Chronic kidney disease, stage 4 (severe) (ICD-10) Hyperlipidemia ?E78.5 - Hyperlipidemia, unspecified (ICD-10) Polyp of prostate with urinary obstruction ?N40.1 - Benign prostatic hyperplasia with lower urinary tract symptoms (ICD-10) ?N13.8 - Other obstructive and reflux uropathy (ICD-10) Femoral artery stenosis ?I70.209 - Unspecified atherosclerosis of [place] arteries of extremities, unspecified extremity (ICD-10) Glaucoma ?H40.9 - Unspecified glaucoma (ICD-10) Carpal tunnel syndrome, bilateral ?G56.03 - Carpal tunnel syndrome, bilateral upper limbs (ICD-10) Gout ?M10.9 - Gout, unspecified (ICD-10) Neuropathy ?G62.9 - Polyneuropathy, unspecified (ICD-10) Chronic kidney disease ?N18.9 - Chronic kidney disease, unspecified (ICD-10) Weakness ?R53.1 - Weakness (ICD-10) Surgical History H/O foot surgery (08/10/23) ?Z98.890 - Other specified postprocedural states (ICD-10) S/P TURP (04/13/23) ?Z90.79 - Acquired absence of other genital organ(s) (ICD-10) H/O foot surgery (08/05/23) ?Z98.890 - Other specified postprocedural states (ICD-10) History of heart artery stent ?Z95.5 - Presence of coronary angioplasty implant and graft (ICD-10) History of spinal surgery ?Z98.890 - Other specified postprocedural states (ICD-10) History of colonoscopy ?Z98.890 - Other specified postprocedural states (ICD-10) History of carpal tunnel release ?Z98.890 - Other specified postprocedural states (ICD-10) History of cataract extraction ?Z98.49 - Cataract extraction status, unspecified eye (ICD-10) History of appendectomy ?Z90.49 - Acquired absence of other specified parts of digestive tract (ICD-10) History of heart artery stent ?Z95.5 - Presence of coronary angioplasty implant and graft (ICD-10) Family History Mother Family history of CHF (congestive heart failure) Family history of diabetes mellitus Family history of hypertension Grandfather Family history of CHF (congestive heart failure) Family history of diabetes mellitus Family history of hypertension Family history of myocardial infarction Grandmother Family history of hypertension Social History (Updated 12/30/23 @ 21:58 by Sheri Peralta RN) Within the past year, how often did you have a drink containing alcohol: never Within the past year, how often did you have six or more drinks on one occasion: never Score interpretation: A score less than 4 is consistent with normal alcohol consumption. Smoking status: Current every day smoker What tobacco products do you use: cigarettes Cigarettes per day: 20 Years smoked: 42 Smoking pack-years: 42.00 Nicotine containing products detail: Approx 1 pack QOD Non-prescribed substance use: denies use Previous occupational history: DISABLED Known occupational exposures/hazards: No Highest level of school completed/degree received: high school graduate Are you now , , , , never or living with a partner: In a typical week, how many times do you talk on the telephone with family, friends, or neighbors: once per week How often do you get together with friends or relatives: once per week How often do you attend worship or mormon services: never Do you belong to any clubs or organizations such as worship groups unions, [id number] or athletic groups, or school groups: no Total score: 1 Score interpretation: A score of less than or equal to 1 indicates the most socially isolated. Little interest or pleasure in doing things: not at all Feeling down, depressed, or hopeless: not at all Feel stressed/tense/nervous/anxious/difficulty sleeping: not at all Due to disability, difficulty making decisions: No Do you think of yourself as: straight/heterosexual Gender Identity: male Exam Narrative Exam Narrative: Nurses note and vital signs reviewed and patient is not hypoxic. General: The patient appears well and in no apparent distress. Patient is resting comfortably on cart. Skin: Warm, dry, no pallor noted. There is no rash noted. Head: Normocephalic, atraumatic Eye: Normal conjunctiva, no drainage, EOMI. PERRL Ears, Nose, Mouth, and Throat: oral mucosa is moist. Nares patent. Mouth without vesicles. Ear canals patent. Tm's without Erythema Musculoskeletal:right second digit erythema of the foot, dry abrasion noted, capillary refill noted. left lower extremity above knee amputaion, chronic Neurological: A&O x4, normal speech Psychiatric: Cooperative Constitutional Vital Signs, click to edit/add: Last Vital Signs Temp 98.0 F 04/12/24 17:34 Pulse 80 04/12/24 17:34 Resp 16 04/12/24 17:34 BP 116/68 04/12/24 17:34 Pulse Ox 100 04/12/24 17:34 O2 Del Method Room Air 04/12/24 17:34 Course Vital Signs Vital signs: Vital Signs Temperature 98.0 F 04/12/24 17:34 Pulse Rate 80 04/12/24 17:34 Respiratory Rate 16 04/12/24 17:34 Blood Pressure 116/68 04/12/24 17:34 Pulse Oximetry 100 04/12/24 17:34 Oxygen Delivery Method Room Air 04/12/24 17:34 Temperature 98.0 F 04/12/24 17:34 Pulse Rate 80 04/12/24 17:34 Respiratory Rate 16 04/12/24 17:34 Blood Pressure 116/68 04/12/24 17:34 Pulse Oximetry 100 04/12/24 17:34 Oxygen Delivery Method Room Air 04/12/24 17:34 Medical Decision Making [facility] Narrative Medical decision making narrative: 58-year-old male presents here with a chief complaint of a accidental abrasion, sore to the left second digit. He states he was crawling in his bathroom and accidentally nicked his toe. Patient has a history of diabetic neuropathy with a [id number] amputation on the right lower extremity. He did call Dr. Elias who suggested he come in for evaluation. Patient denies any fevers or chills. Differential Diagnosis Differential Diagnosis: cellulitis, abrasion, toe injury Medical Records Medical records reviewed: Yes I reviewed the patient's medical records Medical records narrative: 58-year-old male presents here with a chief complaint of a accidental abrasion, sore to the left second digit. He states he was crawling in his bathroom and accidentally nicked his toe. Patient has a history of diabetic neuropathy with a fhyvx-dwe-iysw amputation on the right lower extremity. He did call Dr. Elias who suggested he come in for evaluation. Patient denies any fevers or chills. No acute deformity. Abrasion is noted. Patient will be treated with Bactrim Keflex prophylactically due to the history of neuropathy. Patient does have a follow-up appointment next week with Dr. Elias his [employer]. Reasons to return to the emergency room including fever pain or streaking were discussed. Patient agrees with plan of care. Imaging Data foot: My impression: neg, no bone involvement Discharge Plan Discharge Chief Complaint: Skin/Abscess/Foreign Body Clinical Impression: Cellulitis, Abrasion foot/toe Patient Disposition: Home, Self-Care Time of Disposition Decision: 18:39 Condition: Good Prescriptions / Home Meds: New cephalexin 500 mg capsule 500 mg PO BID 10 Days Qty: 20 0RF sulfamethoxazole-trimethoprim [Bactrim DS] 800-160 mg tablet 1 tab PO Q12H 10 Days Qty: 20 0RF No Action Januvia 100 mg tablet 50 mg PO DAILY Qty: 0 0RF valsartan-hydrochlorothiazide 160-12.5 mg tablet 1 tab PO DAILY metformin 1,000 mg tablet 1,000 mg PO BID Jardiance 10 mg tablet 10 mg PO DAILY nitroglycerin 0.4 mg tablet, sublingual 0.4 mg sublingual Q5M PRN (Reason: chest pain) omeprazole 40 mg capsule,delayed release(DR/EC) 40 mg PO DAILY pregabalin 200 mg capsule 200 mg PO TID Ajovy Autoinjector 225 mg/1.5 mL auto-injector 225 mg SUBCUT .QMonth isosorbide mononitrate 30 mg tablet extended release 24 hr 30 mg PO DAILY metoprolol tartrate 100 mg tablet 50 mg PO BID tamsulosin 0.4 mg capsule 0.4 mg PO BID aspirin 81 mg tablet,delayed release (DR/EC) 81 mg PO DAILY atorvastatin 80 mg tablet 80 mg PO DAILY clopidogrel 75 mg tablet 75 mg PO DAILY albuterol sulfate [Proventil HFA] 90 mcg/actuation HFA aerosol inhaler 2 inh inhalation Q8H PRN (Reason: shortness of breath or wheezing) sildenafil 100 mg tablet 100 mg PO Q24H PRN (Reason: erectile dysfunction) Nurtec ODT 75 mg tablet,disintegrating 75 mg PO Q2H PRN (Reason: migraine headache) Rx Instructions: max of 2 tabs in 24 hours Trulicity 0.75 mg/0.5 mL pen injector 0.75 mg subcut QWEEK Patient Comments: tuesdays amitriptyline 25 mg tablet 25 mg PO DAILY ropinirole 1 mg tablet 1 mg PO TID furosemide [Lasix] 40 mg tablet 40 mg PO DAILY budesonide-formoterol [Symbicort] 160-4.5 mcg/actuation HFA aerosol inhaler 2 inh inhalation BID glimepiride 2 mg tablet 2 mg PO BIDWM Spiriva Respimat 2.5 mcg/actuation mist 2 puff INHALATION DAILY Print Language: Italian Instructions: Cellulitis (ED), Abrasion (ED) Referrals: madi [Other] - 1 week Jenaro Valadez DO [Primary Care Provider] - 1 week Fredy Elias DPM [Physician] - 1 week (as scheduled)
[2024-04-12] MEDS: CEPHALEXIN 500 MG CAPSULE PO (18:54)
[2024-04-12] MEDS: SULFAMETHOXAZOLE/TRIMETHOPRIM 800-160 MG TABLET 1 TAB PO (18:54)
== END 2024-04-12 18:56 | disposition home or self-care (01) ==
PROVIDERS: Emergency Provider Emergency Medicine; PCP Family Medicine
DX: S90.415A Abrasion, left lesser toe(s), initial encounter (principal); L03.032 Cellulitis of left toe; X58.XXXA Exposure to other specified factors, initial encounter; E11.40 Type 2 diabetes mellitus with diabetic neuropathy, unspecified; Z89.611 Acquired absence of right leg above knee; Z79.84 Long term (current) use of oral hypoglycemic drugs; Z79.85 Long-term (current) use of injectable non-insulin antidiabetic drugs; F17.210 Nicotine dependence, cigarettes, uncomplicated
CPT/HCPCS: 73630; 99283

== ENCOUNTER 2024-07-24 20:27 | Emergency (ER) | payer OTHER, SELFPAY ==
[2024-07-24] VITALS (18 sets, daily range): BP systolic 86–105; BP diastolic 51–66; PULSE 83–93; TEMP 37–37.1; O2SAT 95–99; BMI 26.4
--- NOTE | 2024-07-24 20:34 | ED_ITS ---
Documented by User: CARSON Blackman 07/24/24 21:09 HPI - Male Genitourinary General Chief complaint: Urogenital-Male Stated complaint: SCOTUM PAIN Time Seen by Provider: 07/24/24 20:32 Source: patient Mode of arrival: ambulance History of Present Illness HPI Narrative: Patient is a 58-year-old male with a history of diabetes and right below the knee amputation who presents to the emergency department by ambulance for evaluation of scrotal pain and groin pain that began 1 hour prior to arrival. Patient states he was eating dinner when he felt a sharp sudden and severe pain in the entire groin and scrotum. He has had difficulty with his urination for at least 3 months, he sees Dr. Silvestre for an enlarged prostate for urology. He has not had any blood in his urine. No fevers or vomiting. Related Data Home Medications ?Medication ?Instructions ?Recorded ?Confirmed empagliflozin 10 mg tablet 10 mg PO DAILY 03/03/23 04/12/24 (Jardiance) nitroglycerin 0.4 mg sublingual 0.4 mg sublingual Q5M PRN chest 03/03/23 04/12/24 tablet pain omeprazole 40 mg capsule,delayed 40 mg PO DAILY 03/03/23 04/12/24 release pregabalin 200 mg capsule 200 mg PO TID 03/03/23 04/12/24 fremanezumab-vfrm 225 mg/1.5 mL 225 mg subcut .QMonth 08/03/23 04/12/24 subcutaneous auto-injector (Ajovy) isosorbide mononitrate 30 mg 30 mg PO DAILY 08/03/23 04/12/24 tablet,extended release 24 hr albuterol sulfate 90 mcg/actuation 2 inh inhalation Q8H PRN shortness 12/09/23 04/12/24 aerosol inhaler (Proventil HFA) of breath or wheezing aspirin 81 mg tablet,delayed 81 mg PO DAILY 12/09/23 04/12/24 release atorvastatin 80 mg tablet 80 mg PO DAILY 12/09/23 04/12/24 clopidogrel 75 mg tablet 75 mg PO DAILY 12/09/23 04/12/24 dulaglutide 0.75 mg/0.5 mL 0.75 mg subcut QWEEK 12/09/23 04/12/24 subcutaneous pen injector (Trulicity) metoprolol tartrate 100 mg tablet 50 mg PO BID 12/09/23 04/12/24 rimegepant 75 mg disintegrating 75 mg PO Q2H PRN migraine headache 12/09/23 04/12/24 tablet (Nurtec ODT) sildenafil 100 mg tablet 100 mg PO Q24H PRN erectile 12/09/23 04/12/24 dysfunction tamsulosin 0.4 mg capsule 0.4 mg PO BID 12/09/23 04/12/24 amitriptyline 25 mg tablet 25 mg PO DAILY 12/10/23 04/12/24 budesonide-formoterol HFA 160 2 inh inhalation BID 12/10/23 04/12/24 mcg-4.5 mcg/actuation aerosol inhaler (Symbicort) furosemide 40 mg tablet (Lasix) 40 mg PO DAILY 12/10/23 04/12/24 glimepiride 2 mg tablet 2 mg PO BIDWM 12/10/23 04/12/24 ropinirole 1 mg tablet 1 mg PO TID 12/10/23 04/12/24 tiotropium bromide 2.5 2 puff inhalation DAILY 12/22/23 04/12/24 mcg/actuation mist for inhalation (Spiriva Respimat) metformin 1,000 mg tablet 1,000 mg PO BID 02/01/24 04/12/24 valsartan 160 1 tab PO DAILY 02/01/24 04/12/24 mg-hydrochlorothiazide 12.5 mg tablet Previous Rx's ?Medication ?Instructions ?Recorded sitagliptin phosphate 100 mg 50 mg (1/2 x 100 mg) PO DAILY #0 12/31/23 tablet (Januvia) tabs cephalexin 500 mg capsule 500 mg PO BID 10 days #20 caps 04/12/24 sulfamethoxazole 800 1 tab PO Q12H 10 days #20 tabs 04/12/24 mg-trimethoprim 160 mg tablet (Bactrim DS) clotrimazole-betamethasone 1 1 applic topical BID #45 grams 07/24/24 %-0.05 % topical cream Allergies Allergy/AdvReac Type Severity Reaction Status Date / Time Penicillins Allergy Severe Swelling Verified 07/24/24 20:31 of Lip/Tongue/Throat bee venom protein (honey bee) Allergy Swelling Verified 07/24/24 20:31 of Lip/Tongue/Throat latex Allergy Rash Verified 07/24/24 20:31 Review of Systems ROS0 Constitutional Denies: fever or chills Ears, nose, mouth, and throat Denies: throat pain, nasal discharge or nasal congestion Cardiovascular Denies: chest pain Respiratory Denies: shortness of breath or cough Gastrointestinal Denies: abdominal pain, nausea or vomiting Genitourinary Reports: testicular pain; Denies: scrotal swelling Musculoskeletal Denies: back pain Integumentary/Breast Denies: rash Neurological Denies: numbness in extremities or weakness in extremities Endocrine Denies: excessive urination Hematologic/Lymphatic Denies: easy bruising or easy bleeding [facility] Medical History (Updated 07/24/24 @ 23:28 by Jacky Camacho MD) Chest pain ?R07.9 - Chest pain, unspecified (ICD-10) Anemia ?D64.9 - Anemia, unspecified (ICD-10) Acute osteomyelitis of right foot ?M86.171 - Other acute osteomyelitis, right ankle and foot (ICD-10) CKD stage 3b, GFR 30-44 ml/min ?N18.32 - Chronic kidney disease, stage 3b (ICD-10) Chronic ulcer of right foot ?L97.519 - Non-pressure chronic ulcer of other part of right foot with unspecified severity (ICD-10) DM2 (diabetes mellitus, type 2) ?E11.9 - Type 2 diabetes mellitus without complications (ICD-10) Coronary artery disease ?I25.10 - Atherosclerotic heart disease of [place] coronary artery without angina pectoris (ICD-10) COPD (chronic obstructive pulmonary disease) ?J44.9 - Chronic obstructive pulmonary disease, unspecified (ICD-10) Hypertension ?I10 - Essential (primary) hypertension (ICD-10) Post-op bleeding Acute pain of right hip ?M25.551 - Pain in right hip (ICD-10) Foot osteomyelitis ?M86.9 - Osteomyelitis, unspecified (ICD-10) Ulcer of right foot with necrosis of bone ?L97.514 - Non-pressure chronic ulcer of other part of right foot with necrosis of bone (ICD-10) Hypocalcemia ?E83.51 - Hypocalcemia (ICD-10) Hypomagnesemia ?E83.42 - Hypomagnesemia (ICD-10) Sepsis ?A41.9 - Sepsis, unspecified organism (ICD-10) Wound of foot ?S91.309A - Unspecified open wound, unspecified foot, initial encounter (ICD- 10) Abscess of right foot ?L02.611 - Cutaneous abscess of right foot (ICD-10) Anticoagulated ?Z79.01 - adjunct faculty for medical terminology (current) use of anticoagulants (ICD-10) Diabetic infection of right foot ?E11.628 - Type 2 diabetes mellitus with other skin complications (ICD-10) ?L08.9 - Local infection of the skin and subcutaneous tissue, unspecified (ICD-10) Puncture wound of right foot ?S91.331A - Puncture wound without foreign body, right foot, initial encounter (ICD-10) Cellulitis of foot, right ?L03.115 - Cellulitis of right lower limb (ICD-10) ROEL (acute kidney injury) ?N17.9 - Acute kidney failure, unspecified (ICD-10) Sepsis ?A41.9 - Sepsis, unspecified organism (ICD-10) CHF (congestive heart failure) ?I50.9 - Heart failure, unspecified (ICD-10) Migraine headache ?G43.909 - Migraine, unspecified, not intractable, without status migrainosus (ICD-10) Tobacco abuse ?Z72.0 - Tobacco use (ICD-10) Carpal tunnel syndrome ?G56.00 - Carpal tunnel syndrome, unspecified upper limb (ICD-10) Back pain ?M54.9 - Dorsalgia, unspecified (ICD-10) Arthritis ?M19.90 - Unspecified osteoarthritis, unspecified site (ICD-10) Restless leg ?G25.81 - Restless legs syndrome (ICD-10) GERD (gastroesophageal reflux disease) ?K21.9 - Gastro-esophageal reflux disease without esophagitis (ICD-10) High cholesterol ?E78.00 - Pure hypercholesterolemia, unspecified (ICD-10) Myocardial infarction ?I21.9 - Acute myocardial infarction, unspecified (ICD-10) BPH with obstruction/lower urinary tract symptoms ?N40.1 - Benign prostatic hyperplasia with lower urinary tract symptoms (ICD- 10) ?N13.8 - Other obstructive and reflux uropathy (ICD-10) Dementia ?F03.90 - Unspecified dementia, unspecified severity, without behavioral disturbance, psychotic disturbance, mood disturbance, and anxiety (ICD-10) CKD stage 4 due to type 2 diabetes mellitus ?E11.22 - Type 2 diabetes mellitus with diabetic chronic kidney disease (ICD- 10) ?N18.4 - Chronic kidney disease, stage 4 (severe) (ICD-10) Hyperlipidemia ?E78.5 - Hyperlipidemia, unspecified (ICD-10) Polyp of prostate with urinary obstruction ?N40.1 - Benign prostatic hyperplasia with lower urinary tract symptoms (ICD- 10) ?N13.8 - Other obstructive and reflux uropathy (ICD-10) Femoral artery stenosis ?I70.209 - Unspecified atherosclerosis of [place] arteries of extremities, unspecified extremity (ICD-10) Glaucoma ?H40.9 - Unspecified glaucoma (ICD-10) Carpal tunnel syndrome, bilateral ?G56.03 - Carpal tunnel syndrome, bilateral upper limbs (ICD-10) Gout ?M10.9 - Gout, unspecified (ICD-10) Neuropathy ?G62.9 - Polyneuropathy, unspecified (ICD-10) Chronic kidney disease ?N18.9 - Chronic kidney disease, unspecified (ICD-10) Weakness ?R53.1 - Weakness (ICD-10) Surgical History H/O foot surgery (08/10/23) ?Z98.890 - Other specified postprocedural states (ICD-10) S/P TURP (04/13/23) ?Z90.79 - Acquired absence of other genital organ(s) (ICD-10) H/O foot surgery (08/05/23) ?Z98.890 - Other specified postprocedural states (ICD-10) History of heart artery stent ?Z95.5 - Presence of coronary angioplasty implant and graft (ICD-10) History of spinal surgery ?Z98.890 - Other specified postprocedural states (ICD-10) History of colonoscopy ?Z98.890 - Other specified postprocedural states (ICD-10) History of carpal tunnel release ?Z98.890 - Other specified postprocedural states (ICD-10) History of cataract extraction ?Z98.49 - Cataract extraction status, unspecified eye (ICD-10) History of appendectomy ?Z90.49 - Acquired absence of other specified parts of digestive tract (ICD- 10) History of heart artery stent ?Z95.5 - Presence of coronary angioplasty implant and graft (ICD-10) Family History Mother Family history of CHF (congestive heart failure) Family history of diabetes mellitus Family history of hypertension Grandfather Family history of CHF (congestive heart failure) Family history of diabetes mellitus Family history of hypertension Family history of myocardial infarction Grandmother Family history of hypertension Social History Within the past year, how often did you have a drink containing alcohol: never Within the past year, how often did you have six or more drinks on one occasion: never Score interpretation: A score less than 4 is consistent with normal alcohol consumption. Smoking status: Current every day smoker What tobacco products do you use: cigarettes Cigarettes per day: 20 Years smoked: 42 Smoking pack-years: 42.00 Nicotine containing products detail: Approx 1 pack QOD Non-prescribed substance use: denies use Previous occupational history: DISABLED Known occupational exposures/hazards: No Highest level of school completed/degree received: high school graduate Are you now , , , , never or living with a partner: In a typical week, how many times do you talk on the telephone with family, friends, or neighbors: once per week How often do you get together with friends or relatives: once per week How often do you attend roman catholic or gnosticist services: never Do you belong to any clubs or organizations such as roman catholic groups unions, fraternal or athletic groups, or school groups: no Total score: 1 Score interpretation: A score of less than or equal to 1 indicates the most socially isolated. Little interest or pleasure in doing things: not at all Feeling down, depressed, or hopeless: not at all Feel stressed/tense/nervous/anxious/difficulty sleeping: not at all Due to disability, difficulty making decisions: No Do you think of yourself as: straight/heterosexual Gender Identity: male Exam Narrative Exam Narrative: Gen.: Awake, alert, in no distress Head: Normocephalic, atraumatic ENT: Moist mucous membranes Respiratory: No respiratory distress, lungs clear bilaterally Cardio: Regular rate and rhythm Gastrointestinal: Abdomen is soft, nondistended and nontender to palpation, patient is circumcised with no appreciable swelling of the scrotum, no palpable hernia. No redness or induration of the scrotum, no open wounds or drainage. Genital exam performed with Rebekah Dumont RN at the bedside throughout the duration of the exam Extremities: Moves extremities equally Psych: Normal mood and affect Neuro: No focal neuro deficit Skin: Warm, dry, intact Constitutional Vital Signs, click to edit/add: Last Vital Signs Temp 98.6 F 07/24/24 20:31 Pulse 84 07/24/24 22:32 Resp 18 07/24/24 22:32 BP 93/51 07/24/24 22:32 Pulse Ox 96 07/24/24 22:32 O2 Del Method Room Air 07/24/24 20:31 Course Vital Signs Vital signs: Vital Signs Temperature 98.6 F 07/24/24 20:31 Pulse Rate 93 H 07/24/24 20:31 Respiratory Rate 18 07/24/24 20:31 Blood Pressure 101/58 07/24/24 20:31 Pulse Oximetry 96 07/24/24 20:31 Oxygen Delivery Method Room Air 07/24/24 20:31 Temperature 98.6 F 07/24/24 20:31 Pulse Rate 84 07/24/24 22:32 Respiratory Rate 18 07/24/24 22:32 Blood Pressure 93/51 07/24/24 22:32 Pulse Oximetry 96 07/24/24 22:32 Oxygen Delivery Method Room Air 07/24/24 20:31 MDM - Male Genitourinary MDM Narrative Medical decision making narrative: 2107: Labs, urine specimen with IV pain medication were ordered. Patient is pending an ultrasound and CT scan to rule out testicular torsion or other pelvic abnormalities. Case is turned over to attending physician at this time for disposition. SHARED APC VISIT, PHYSICIAN ATTESTATION: [id number] I performed a substantive part of the MDM during the patient?s E/M visit. I personally evaluated and examined the patient. I personally made or approved the documented management plan and acknowledge its risk of complications. Medical Records Attestation: I reviewed the patient's medical records. Lab Data Attestation: I reviewed the patient's lab results. Labs: Lab Results 07/24/24 07/24/24 Range/Units 20:37 20:53 WBC 9.9 (4.0-11.0) 10^3/uL RBC 5.17 (4.70-6.10) 10^6/uL Hgb 11.1 L (14.0-18.0) g/dL Hct 37.6 L (42.0-54.0) % MCV 72.7 L (80.0-94.0) fL MCH 21.5 L (25.9-34.0) pg MCHC 29.5 L (29.9-35.2) g/dL RDW 19.1 H (11.0-15.0) % Plt Count 214 (150-450) 10^3/uL MPV 11.0 (9.5-13.5) fL Neut % (Auto) 64.3 (43.0-75.0) % Lymph % (Auto) 20.9 (20.5-60.0) % [place] % (Auto) 9.7 (1.7-12.0) % Eos % (Auto) 3.7 (0.9-7.0) % Baso % (Auto) 1.1 (0.2-2.0) % Neut # (Auto) 6.3 (1.4-6.5) 10^3/uL Lymph # (Auto) 2.1 (1.2-3.8) 10^3/uL [place] # (Auto) 1.0 H (0.3-0.8) 10^3/uL Eos # (Auto) 0.4 (0.0-0.7) 10^3/uL Baso # (Auto) 0.1 (0.0-0.1) 10^3/uL Abs Immat Gran (auto) 0.03 (0.00-0.03) 10^3/uL Imm/Tot Granulo (auto) 0.3 (0.0-0.5) % Sodium 139 (136-145) mmol/L Potassium 3.4 L (3.5-5.1) mmol/L Chloride 102 (98-107) mmol/L Carbon Dioxide 26.3 (21.0-32.0) mmol/L Anion Gap 14.1 BUN 22.0 H (7.0-18.0) mg/dL Creatinine 2.28 H (0.70-1.30) mg/dL Est GFR ( Amer) 36 L (>=60 mL/min/1.73m^2) Est GFR (Non-Af Amer) 30 L (>=60 mL/min/1.73m^2) BUN/Creatinine Ratio 9.6 Glucose 177 H (74-106) mg/dL Lactate 1.8 (0.4-2.0) mmol/L Calcium 8.4 L (8.5-10.1) mg/dL Total Bilirubin 0.4 (0.2-1.0) mg/dL AST 11 L (15-37) U/L ALT 16 (16-63) U/L Alkaline Phosphatase 111 (46-116) U/L Total Protein 7.0 (6.4-8.2) g/dL Albumin 3.3 L (3.4-5.0) g/dL Globulin 3.7 g/dL Albumin/Globulin Ratio 0.9 Urine Color Lt. yellow (YELLOW) Urine Clarity Clear (CLEAR) Urine pH 6.5 (5.0-9.0) Ur Specific [place] <=1.005 A (1.005-1.025) Urine Protein Negative (NEG/TRACE) mg/dL Urine Glucose (UA) >=1000 A (NEGATIVE) mg/dL Urine Ketones Negative (NEGATIVE) mg/dL Urine Occult Blood Negative (NEGATIVE) Urine Nitrite Negative (NEGATIVE) Urine Bilirubin Negative (NEGATIVE) Urine Urobilinogen 0.2 (0.2-1.0) EU/dL Ur Leukocyte Esterase Negative (NEGATIVE) Urine RBC None seen (0-2) #/HPF Urine WBC 0-2 A (NONE SEEN) #/HPF Ur Squamous Epith Cells Rare (NONE/RARE) #/LPF Urine Crystals None seen (None Seen) #/HPF Urine Bacteria Trace A (NONE SEEN) #/HPF Urine Casts None seen (NONE SEEN) #/LPF Urine Mucus None seen (NONE SEEN) Urine Sperm Seen Ur Culture Indicated? No Discharge Plan Discharge Chief Complaint: Urogenital-Male Clinical Impression: Tinea cruris Patient Disposition: Home, Self-Care Time of Disposition Decision: 23:28 Condition: Good Mode of Transportation: Private Vehicle Prescriptions / Home Meds: New clotrimazole-betamethasone 1-0.05 % cream 1 applic topical BID Qty: 45 0RF No Action Januvia 100 mg tablet 50 mg PO DAILY Qty: 0 0RF valsartan-hydrochlorothiazide 160-12.5 mg tablet 1 tab PO DAILY metformin 1,000 mg tablet 1,000 mg PO BID cephalexin 500 mg capsule 500 mg PO BID 10 Days Qty: 20 0RF sulfamethoxazole-trimethoprim [Bactrim DS] 800-160 mg tablet 1 tab PO Q12H 10 Days Qty: 20 0RF Jardiance 10 mg tablet 10 mg PO DAILY nitroglycerin 0.4 mg tablet, sublingual 0.4 mg sublingual Q5M PRN (Reason: chest pain) omeprazole 40 mg capsule,delayed release(DR/EC) 40 mg PO DAILY pregabalin 200 mg capsule 200 mg PO TID Ajovy Autoinjector 225 mg/1.5 mL auto-injector 225 mg SUBCUT .QMonth isosorbide mononitrate 30 mg tablet extended release 24 hr 30 mg PO DAILY metoprolol tartrate 100 mg tablet 50 mg PO BID tamsulosin 0.4 mg capsule 0.4 mg PO BID aspirin 81 mg tablet,delayed release (DR/EC) 81 mg PO DAILY atorvastatin 80 mg tablet 80 mg PO DAILY clopidogrel 75 mg tablet 75 mg PO DAILY albuterol sulfate [Proventil HFA] 90 mcg/actuation HFA aerosol inhaler 2 inh inhalation Q8H PRN (Reason: shortness of breath or wheezing) sildenafil 100 mg tablet 100 mg PO Q24H PRN (Reason: erectile dysfunction) Nurtec ODT 75 mg tablet,disintegrating 75 mg PO Q2H PRN (Reason: migraine headache) Rx Instructions: max of 2 tabs in 24 hours Trulicity 0.75 mg/0.5 mL pen injector 0.75 mg subcut QWEEK Patient Comments: tuesdays amitriptyline 25 mg tablet 25 mg PO DAILY ropinirole 1 mg tablet 1 mg PO TID furosemide [Lasix] 40 mg tablet 40 mg PO DAILY budesonide-formoterol [Symbicort] 160-4.5 mcg/actuation HFA aerosol inhaler 2 inh inhalation BID glimepiride 2 mg tablet 2 mg PO BIDWM Spiriva Respimat 2.5 mcg/actuation mist 2 puff INHALATION DAILY Print Language: [place] Instructions: Skin Yeast Infection (ED) Referrals: Jenaro Valadez DO [Primary Care Provider] - 1 week Documented by User: Jacky Camacho MD 07/24/24 23:32 HPI - Male Genitourinary General Chief complaint: Urogenital-Male Stated complaint: SCOTUM PAIN Time Seen by Provider: 07/24/24 20:32 Related Data Home Medications ?Medication ?Instructions ?Recorded ?Confirmed empagliflozin 10 mg tablet 10 mg PO DAILY 03/03/23 04/12/24 (Jardiance) nitroglycerin 0.4 mg sublingual 0.4 mg sublingual Q5M PRN chest 03/03/23 04/12/24 tablet pain omeprazole 40 mg capsule,delayed 40 mg PO DAILY 03/03/23 04/12/24 release pregabalin 200 mg capsule 200 mg PO TID 03/03/23 04/12/24 fremanezumab-vfrm 225 mg/1.5 mL 225 mg subcut .QMonth 08/03/23 04/12/24 subcutaneous auto-injector (Ajovy) isosorbide mononitrate 30 mg 30 mg PO DAILY 08/03/23 04/12/24 tablet,extended release 24 hr albuterol sulfate 90 mcg/actuation 2 inh inhalation Q8H PRN shortness 12/09/23 04/12/24 aerosol inhaler (Proventil HFA) of breath or wheezing aspirin 81 mg tablet,delayed 81 mg PO DAILY 12/09/23 04/12/24 release atorvastatin 80 mg tablet 80 mg PO DAILY 12/09/23 04/12/24 clopidogrel 75 mg tablet 75 mg PO DAILY 12/09/23 04/12/24 dulaglutide 0.75 mg/0.5 mL 0.75 mg subcut QWEEK 12/09/23 04/12/24 subcutaneous pen injector (Bharathi) metoprolol tartrate 100 mg tablet 50 mg PO BID 12/09/23 04/12/24 rimegepant 75 mg disintegrating 75 mg PO Q2H PRN migraine headache 12/09/23 04/12/24 tablet (Nurtec ODT) sildenafil 100 mg tablet 100 mg PO Q24H PRN erectile 12/09/23 04/12/24 dysfunction tamsulosin 0.4 mg capsule 0.4 mg PO BID 12/09/23 04/12/24 amitriptyline 25 mg tablet 25 mg PO DAILY 12/10/23 04/12/24 budesonide-formoterol HFA 160 2 inh inhalation BID 12/10/23 04/12/24 mcg-4.5 mcg/actuation aerosol inhaler (Symbicort) furosemide 40 mg tablet (Lasix) 40 mg PO DAILY 12/10/23 04/12/24 glimepiride 2 mg tablet 2 mg PO BIDWM 12/10/23 04/12/24 ropinirole 1 mg tablet 1 mg PO TID 12/10/23 04/12/24 tiotropium bromide 2.5 2 puff inhalation DAILY 12/22/23 04/12/24 mcg/actuation mist for inhalation (Spiriva Respimat) metformin 1,000 mg tablet 1,000 mg PO BID 02/01/24 04/12/24 valsartan 160 1 tab PO DAILY 02/01/24 04/12/24 mg-hydrochlorothiazide 12.5 mg tablet Previous Rx's ?Medication ?Instructions ?Recorded sitagliptin phosphate 100 mg 50 mg (1/2 x 100 mg) PO DAILY #0 12/31/23 tablet (Januvia) tabs cephalexin 500 mg capsule 500 mg PO BID 10 days #20 caps 04/12/24 sulfamethoxazole 800 1 tab PO Q12H 10 days #20 tabs 04/12/24 mg-trimethoprim 160 mg tablet (Bactrim DS) clotrimazole-betamethasone 1 1 applic topical BID #45 grams 07/24/24 %-0.05 % topical cream Allergies Allergy/AdvReac Type Severity Reaction Status Date / Time Penicillins Allergy Severe Swelling Verified 07/24/24 20:31 of Lip/Tongue/Throat bee venom protein (honey bee) Allergy Swelling Verified 07/24/24 20:31 of Lip/Tongue/Throat latex Allergy Rash Verified 07/24/24 20:31 [facility] Medical History (Updated 07/24/24 @ 23:28 by Jacky Camacho MD) Chest pain ?R07.9 - Chest pain, unspecified (ICD-10) Anemia ?D64.9 - Anemia, unspecified (ICD-10) Acute osteomyelitis of right foot ?M86.171 - Other acute osteomyelitis, right ankle and foot (ICD-10) CKD stage 3b, GFR 30-44 ml/min ?N18.32 - Chronic kidney disease, stage 3b (ICD-10) Chronic ulcer of right foot ?L97.519 - Non-pressure chronic ulcer of other part of right foot with u nspecified severity (ICD-10) DM2 (diabetes mellitus, type 2) ?E11.9 - Type 2 diabetes mellitus without complications (ICD-10) Coronary artery disease ?I25.10 - Atherosclerotic heart disease of [place] coronary artery without angina pectoris (ICD-10) COPD (chronic obstructive pulmonary disease) ?J44.9 - Chronic obstructive pulmonary disease, unspecified (ICD-10) Hypertension ?I10 - Essential (primary) hypertension (ICD-10) Post-op bleeding Acute pain of right hip ?M25.551 - Pain in right hip (ICD-10) Foot osteomyelitis ?M86.9 - Osteomyelitis, unspecified (ICD-10) Ulcer of right foot with necrosis of bone ?L97.514 - Non-pressure chronic ulcer of other part of right foot with necrosis of bone (ICD-10) Hypocalcemia ?E83.51 - Hypocalcemia (ICD-10) Hypomagnesemia ?E83.42 - Hypomagnesemia (ICD-10) Sepsis ?A41.9 - Sepsis, unspecified organism (ICD-10) Wound of foot ?S91.309A - Unspecified open wound, unspecified foot, initial encounter (ICD- 10) Abscess of right foot ?L02.611 - Cutaneous abscess of right foot (ICD-10) Anticoagulated ?Z79.01 - adjunct faculty for medical terminology (current) use of anticoagulants (ICD-10) Diabetic infection of right foot ?E11.628 - Type 2 diabetes mellitus with other skin complications (ICD-10) ?L08.9 - Local infection of the skin and subcutaneous tissue, unspecified (ICD-10) Puncture wound of right foot ?S91.331A - Puncture wound without foreign body, right foot, initial encounter (ICD-10) Cellulitis of foot, right ?L03.115 - Cellulitis of right lower limb (ICD-10) ROEL (acute kidney injury) ?N17.9 - Acute kidney failure, unspecified (ICD-10) Sepsis ?A41.9 - Sepsis, unspecified organism (ICD-10) CHF (congestive heart failure) ?I50.9 - Heart failure, unspecified (ICD-10) Migraine headache ?G43.909 - Migraine, unspecified, not intractable, without status migrainosus (ICD-10) Tobacco abuse ?Z72.0 - Tobacco use (ICD-10) Carpal tunnel syndrome ?G56.00 - Carpal tunnel syndrome, unspecified upper limb (ICD-10) Back pain ?M54.9 - Dorsalgia, unspecified (ICD-10) Arthritis ?M19.90 - Unspecified osteoarthritis, unspecified site (ICD-10) Restless leg ?G25.81 - Restless legs syndrome (ICD-10) GERD (gastroesophageal reflux disease) ?K21.9 - Gastro-esophageal reflux disease without esophagitis (ICD-10) High cholesterol ?E78.00 - Pure hypercholesterolemia, unspecified (ICD-10) Myocardial infarction ?I21.9 - Acute myocardial infarction, unspecified (ICD-10) BPH with obstruction/lower urinary tract symptoms ?N40.1 - Benign prostatic hyperplasia with lower urinary tract symptoms (ICD- 10) ?N13.8 - Other obstructive and reflux uropathy (ICD-10) Dementia ?F03.90 - Unspecified dementia, unspecified severity, without behavioral disturbance, psychotic disturbance, mood disturbance, and anxiety (ICD-10) CKD stage 4 due to type 2 diabetes mellitus ?E11.22 - Type 2 diabetes mellitus with diabetic chronic kidney disease (ICD- 10) ?N18.4 - Chronic kidney disease, stage 4 (severe) (ICD-10) Hyperlipidemia ?E78.5 - Hyperlipidemia, unspecified (ICD-10) Polyp of prostate with urinary obstruction ?N40.1 - Benign prostatic hyperplasia with lower urinary tract symptoms (ICD- 10) ?N13.8 - Other obstructive and reflux uropathy (ICD-10) Femoral artery stenosis ?I70.209 - Unspecified atherosclerosis of [place] arteries of extremities, unspecified extremity (ICD-10) Glaucoma ?H40.9 - Unspecified glaucoma (ICD-10) Carpal tunnel syndrome, bilateral ?G56.03 - Carpal tunnel syndrome, bilateral upper limbs (ICD-10) Gout ?M10.9 - Gout, unspecified (ICD-10) Neuropathy ?G62.9 - Polyneuropathy, unspecified (ICD-10) Chronic kidney disease ?N18.9 - Chronic kidney disease, unspecified (ICD-10) Weakness ?R53.1 - Weakness (ICD-10) Surgical History H/O foot surgery (08/10/23) ?Z98.890 - Other specified postprocedural states (ICD-10) S/P TURP (04/13/23) ?Z90.79 - Acquired absence of other genital organ(s) (ICD-10) H/O foot surgery (08/05/23) ?Z98.890 - Other specified postprocedural states (ICD-10) History of heart artery stent ?Z95.5 - Presence of coronary angioplasty implant and graft (ICD-10) History of spinal surgery ?Z98.890 - Other specified postprocedural states (ICD-10) History of colonoscopy ?Z98.890 - Other specified postprocedural states (ICD-10) History of carpal tunnel release ?Z98.890 - Other specified postprocedural states (ICD-10) History of cataract extraction ?Z98.49 - Cataract extraction status, unspecified eye (ICD-10) History of appendectomy ?Z90.49 - Acquired absence of other specified parts of digestive tract (ICD-1 0) History of heart artery stent ?Z95.5 - Presence of coronary angioplasty implant and graft (ICD-10) Family History Mother Family history of CHF (congestive heart failure) Family history of diabetes mellitus Family history of hypertension Grandfather Family history of CHF (congestive heart failure) Family history of diabetes mellitus Family history of hypertension Family history of myocardial infarction Grandmother Family history of hypertension Social History Within the past year, how often did you have a drink containing alcohol: never Within the past year, how often did you have six or more drinks on one occasion: never Score interpretation: A score less than 4 is consistent with normal alcohol consumption. Smoking status: Current every day smoker What tobacco products do you use: cigarettes Cigarettes per day: 20 Years smoked: 42 Smoking pack-years: 42.00 Nicotine containing products detail: Approx 1 pack QOD Non-prescribed substance use: denies use Previous occupational history: DISABLED Known occupational exposures/hazards: No Highest level of school completed/degree received: high school graduate Are you now , , , , never or living with a partner: In a typical week, how many times do you talk on the telephone with family, friends, or neighbors: once per week How often do you get together with friends or relatives: once per week How often do you attend roman catholic or gnosticist services: never Do you belong to any clubs or organizations such as roman catholic groups unions, [employer] or athletic groups, or school groups: no Total score: 1 Score interpretation: A score of less than or equal to 1 indicates the most socially isolated. Little interest or pleasure in doing things: not at all Feeling down, depressed, or hopeless: not at all Feel stressed/tense/nervous/anxious/difficulty sleeping: not at all Due to disability, difficulty making decisions: No Do you think of yourself as: straight/heterosexual Gender Identity: male Exam Constitutional Vital Signs, click to edit/add: Last Vital Signs Temp 98.6 F 07/24/24 20:31 Pulse 84 07/24/24 22:32 Resp 18 07/24/24 22:32 BP 93/51 07/24/24 22:32 Pulse Ox 96 07/24/24 22:32 O2 Del Method Room Air 07/24/24 20:31 Course Vital Signs Vital signs: Vital Signs Temperature 98.6 F 07/24/24 20:31 Pulse Rate 93 H 07/24/24 20:31 Respiratory Rate 18 07/24/24 20:31 Blood Pressure 101/58 07/24/24 20:31 Pulse Oximetry 96 07/24/24 20:31 Oxygen Delivery Method Room Air 07/24/24 20:31 Temperature 98.6 F 07/24/24 20:31 Pulse Rate 84 07/24/24 22:32 Respiratory Rate 18 07/24/24 22:32 Blood Pressure 93/51 07/24/24 22:32 Pulse Oximetry 96 07/24/24 22:32 Oxygen Delivery Method Room Air 07/24/24 20:31 MDM - Male Genitourinary MDM Narrative Medical decision making narrative: 2107: Labs, urine specimen with IV pain medication were ordered. Patient is pending an ultrasound and CT scan to rule out testicular torsion or other pelvic abnormalities. Case is turned over to attending physician at this time for disposition. SHARED APC VISIT, PHYSICIAN ATTESTATION: [id number] I performed a substantive part of the MDM during the patient?s E/M visit. I personally evaluated and examined the patient. I personally made or approved the documented management plan and acknowledge its risk of complications. JK 11:30 pm CAT scan and ultrasound are essentially negative. There is no evidence of Skylar's gangrene. In terms of the ultrasound there is no testicular mass. Small right hydrocele is noted and small bilateral varicoceles as well. Exam by me at 11:30 PM shows some mild erythema on the scrotum consistent with a cutaneous fungal infection. He is prescribed Lotrisone. Treatment diagnosis and follow-up were discussed with the patient. I do not suspect cellulitis. Differential Diagnosis Differential diagnosis: Likely other (Tinea cruris, cellulitis, Skylar's gangrene) Lab Data Labs: Lab Results 07/24/24 07/24/24 Range/Units 20:37 20:53 WBC 9.9 (4.0-11.0) 10^3/uL RBC 5.17 (4.70-6.10) 10^6/uL Hgb 11.1 L (14.0-18.0) g/dL Hct 37.6 L (42.0-54.0) % MCV 72.7 L (80.0-94.0) fL MCH 21.5 L (25.9-34.0) pg MCHC 29.5 L (29.9-35.2) g/dL RDW 19.1 H (11.0-15.0) % Plt Count 214 (150-450) 10^3/uL MPV 11.0 (9.5-13.5) fL Neut % (Auto) 64.3 (43.0-75.0) % Lymph % (Auto) 20.9 (20.5-60.0) % [place] % (Auto) 9.7 (1.7-12.0) % Eos % (Auto) 3.7 (0.9-7.0) % Baso % (Auto) 1.1 (0.2-2.0) % Neut # (Auto) 6.3 (1.4-6.5) 10^3/uL Lymph # (Auto) 2.1 (1.2-3.8) 10^3/uL [place] # (Auto) 1.0 H (0.3-0.8) 10^3/uL Eos # (Auto) 0.4 (0.0-0.7) 10^3/uL Baso # (Auto) 0.1 (0.0-0.1) 10^3/uL Abs Immat Gran (auto) 0.03 (0.00-0.03) 10^3/uL Imm/Tot Granulo (auto) 0.3 (0.0-0.5) % Sodium 139 (136-145) mmol/L Potassium 3.4 L (3.5-5.1) mmol/L Chloride 102 (98-107) mmol/L Carbon Dioxide 26.3 (21.0-32.0) mmol/L Anion Gap 14.1 BUN 22.0 H (7.0-18.0) mg/dL Creatinine 2.28 H (0.70-1.30) mg/dL Est GFR ( Amer) 36 L (>=60 mL/min/1.73m^2) Est GFR (Non-Af Amer) 30 L (>=60 mL/min/1.73m^2) BUN/Creatinine Ratio 9.6 Glucose 177 H (74-106) mg/dL Lactate 1.8 (0.4-2.0) mmol/L Calcium 8.4 L (8.5-10.1) mg/dL Total Bilirubin 0.4 (0.2-1.0) mg/dL AST 11 L (15-37) U/L ALT 16 (16-63) U/L Alkaline Phosphatase 111 (46-116) U/L Total Protein 7.0 (6.4-8.2) g/dL Albumin 3.3 L (3.4-5.0) g/dL Globulin 3.7 g/dL Albumin/Globulin Ratio 0.9 Urine Color Lt. yellow (YELLOW) Urine Clarity Clear (CLEAR) Urine pH 6.5 (5.0-9.0) Ur Specific [place] <=1.005 A (1.005-1.025) Urine Protein Negative (NEG/TRACE) mg/dL Urine Glucose (UA) >=1000 A (NEGATIVE) mg/dL Urine Ketones Negative (NEGATIVE) mg/dL Urine Occult Blood Negative (NEGATIVE) Urine Nitrite Negative (NEGATIVE) Urine Bilirubin Negative (NEGATIVE) Urine Urobilinogen 0.2 (0.2-1.0) EU/dL Ur Leukocyte Esterase Negative (NEGATIVE) Urine RBC None seen (0-2) #/HPF Urine WBC 0-2 A (NONE SEEN) #/HPF Ur Squamous Epith Cells Rare (NONE/RARE) #/LPF Urine Crystals None seen (None Seen) #/HPF Urine Bacteria Trace A (NONE SEEN) #/HPF Urine Casts None seen (NONE SEEN) #/LPF Urine Mucus None seen (NONE SEEN) Urine Sperm Seen Ur Culture Indicated? No Imaging Data Scrotal ultrasound, CT abdomen: Radiologist's impression: Ultrasound: No testicular masses, no testicular torsion, small right hydrocele CT abdomen: Mild constipation, diverticulosis, bilateral common iliac artery stents, no acute process in the peritoneum Discharge Plan Discharge Chief Complaint: Urogenital-Male Clinical Impression: Tinea cruris Patient Disposition: Home, Self-Care Time of Disposition Decision: 23:28 Condition: Good Mode of Transportation: Private Vehicle Prescriptions / Home Meds: New clotrimazole-betamethasone 1-0.05 % cream 1 applic topical BID Qty: 45 0RF No Action Januvia 100 mg tablet 50 mg PO DAILY Qty: 0 0RF valsartan-hydrochlorothiazide 160-12.5 mg tablet 1 tab PO DAILY metformin 1,000 mg tablet 1,000 mg PO BID cephalexin 500 mg capsule 500 mg PO BID 10 Days Qty: 20 0RF sulfamethoxazole-trimethoprim [Bactrim DS] 800-160 mg tablet 1 tab PO Q12H 10 Days Qty: 20 0RF Jardiance 10 mg tablet 10 mg PO DAILY nitroglycerin 0.4 mg tablet, sublingual 0.4 mg sublingual Q5M PRN (Reason: chest pain) omeprazole 40 mg capsule,delayed release(DR/EC) 40 mg PO DAILY pregabalin 200 mg capsule 200 mg PO TID Ajovy Autoinjector 225 mg/1.5 mL auto-injector 225 mg SUBCUT .QMonth isosorbide mononitrate 30 mg tablet extended release 24 hr 30 mg PO DAILY metoprolol tartrate 100 mg tablet 50 mg PO BID tamsulosin 0.4 mg capsule 0.4 mg PO BID aspirin 81 mg tablet,delayed release (DR/EC) 81 mg PO DAILY atorvastatin 80 mg tablet 80 mg PO DAILY clopidogrel 75 mg tablet 75 mg PO DAILY albuterol sulfate [Proventil HFA] 90 mcg/actuation HFA aerosol inhaler 2 inh inhalation Q8H PRN (Reason: shortness of breath or wheezing) sildenafil 100 mg tablet 100 mg PO Q24H PRN (Reason: erectile dysfunction) Nurtec ODT 75 mg tablet,disintegrating 75 mg PO Q2H PRN (Reason: migraine headache) Rx Instructions: max of 2 tabs in 24 hours Trulicity 0.75 mg/0.5 mL pen injector 0.75 mg subcut QWEEK Patient Comments: tuesdays amitriptyline 25 mg tablet 25 mg PO DAILY ropinirole 1 mg tablet 1 mg PO TID furosemide [Lasix] 40 mg tablet 40 mg PO DAILY budesonide-formoterol [Symbicort] 160-4.5 mcg/actuation HFA aerosol inhaler 2 inh inhalation BID glimepiride 2 mg tablet 2 mg PO BIDWM Spiriva Respimat 2.5 mcg/actuation mist 2 puff INHALATION DAILY Print Language: Angolan Instructions: Skin Yeast Infection (ED) Referrals: Jenaro Valadez DO [Primary Care Provider] - 1 week
--- OUTSIDE RECORDS SUMMARY | 2024-07-24 20:40 | XMS_ITS | CCD ---
Author Organization [facility] Care Team Providers Care Color Maker Dyer Name Role Phone Teresa Lynch Unavailable Unavailable Unavailable Teresa Lynch Unavailable Amina Fagan Unavailable Verona Whaley Unavailable Doris Barnes Unavailable DO Teresa Lynch Primary Care Provider JERARDO Mclaughlin Attending Provider DO Teresa Lynch Attending Provider SAMSA ., DUARTE Attending Unavailable PETERSA ., DUARTE Admitting Unavailable DR LYSSA PERDOMO Consulting Unavailable DR TERESA LYNCH Primary Care Unavailable DUARTE MÁRQUEZ Consulting Unavailable TERESA LYNCH Primary Care Physician [phone] Dr. Teresa Lynch Primary Care UnavailDolores Vaughn Attending Unavailable Dolores Pickard Attending Unavailable Dolores Pickard Referring Unavailable Rory, Dr. Teresa Orona Primary Care UnavailDolores Vaughn Attending Unavailable Dolores Pickard Referring Unavailable Rory, Dr. Teresa Orona Primary Care Unavailkita Inman II, Dr. Vanessa Orona Referring Unavailable Rory, Dr. Teresa Orona Primary Care Unavailkita Inman II, Dr. Vanessa Orona Attending Unavailable DO Teresa Lynch Primary Care Provider MD Nancy Wilson Emergency Provider [phone] DO Teresa Lynch Primary Care Provider MD Nancy Wilson Emergency Provider [phone] JERARDO Mclaughlin Attending Provider JERARDO Mclaughlin Referring Provider [phone] LINDSEY Soto Attending Provider [phone] DO Teresa Lynch Primary Care Provider Teresa Lynch DO Primary Care Provider SIMON, MOHAMED F Attending Unavailable PAULA SOTO Referring Unavailable SIMON, MIKE F Admitting Unavailable SIMON, MIKE F Attending Unavailable ONLY), [facility] (INPATIENT Consult ing Unavailable ROSIE AQUINO Referring Unavailable MAAME RUCKER Referring Unavailable ROSIE AQUINO Referring Unavailable DO Teresa Lynch Primary Care Provider BERNARD DE LA CRUZ Referring Unavailable TERESA LYNCH Primary Care Unavailable Simon, Albertamed FMary Admitting Unavailable SimonMike pennington FMary Attending Unavailable SimonAlbert penningtonamed FMary Referring Unavailable MD Elan Antonio Attending Unavaila ble Mike Montes Consulting Unavailable SimonMike pennington FMary Consulting Unavailable SimonMike pennington FMary Consulting Unavailable MD Mike Montes Admitting Unavailable MD Mike Montes Consulting Unavailable MD Mike Montes Attending Unavailable MD Mike Montes Referring Unavailable Simon, Mike FMary Consulting Unavailable Simon, Albertamed FMary Consulting Unavailable Simon, Albertamed FMary Admitting Unavailable Simon, Mohamed FMary Consulting Unavailable SimonAlbertamed FMary Attending Unavailable SimonAlbertamed FMary Referring Unavailable Yeyo ROWE R Attending Unavailable Yeyo ROWE Attending Unavailable MD Mike Montes Admitting Unavailable MD Mike Montes Attending Unavailable NONE, XXXX Referring Unavailable MD Mike Montes Admitting Unavailable MD Mike Montes Attending Unavailable MD Mike Montes Referring Unavailable ROWEYeyo R Attending Unavailable ROWEYeyo R Attending Unavailable ROWE, Yeyo R Referring Unavailable ROWE, Yeyo R Attending Unavailable ROWE, Yeyo R Attending Unavailable ROWE, Yeyo R Attending Unavailable ROWE, Yeyo R Attending Unavailable ROWE, Yeyo R Attending Unavailable ROWE, Yeyo R Attending Unavailable Vanessa Gilliland Attending Unavailable Simon, MD [place] FMary Referring Unavailable Simon, MD Mike Weathers Admitting Unavailable Simon, MD Mike Weathers Attending Unavailable Simon, MD [place] FMary Referring Unavailable Simon, MD Mike Weathers Admitting Unavailable Simon, MD Mike Weathers Attending Unavailable Yeyo ROWE R Attending Unavailable Simon, MD [place] FMary Admitting Unavailable Simon, MD [place] FMary Attending Unavailable Simon, MD [place] FMary Referring Unavailable Simon, MD [place] FMary Admitting Unavailable Simon, MD Mike Weathers Attending Unavailable Simon, MD [place] FMary Referring Unavailable Simon, Albertamed F. Admitting Unavailable Simon, Albertamed F. Consulting Unavailable Simon, Albertamed F. Referring Unavailable PasteVanessa blum Attending Unavailable Simon, Albertamed FMary Consulting Unavailable Simon, Albertamed FMary Consulting Unavailable LINDSEY Soto Attending Provider [phone] MD Kait Dan Emergency Provider DO Teresa Lynch Primary Care Provider MD João Powell Admit Provider MD João Powell Attending Provider MD Kait Dan Emergency Provider DO Teresa Lynch Primary Care Provider MD João Powell Admit Provider MD João Powell Attending Provider [phone] MD Lyssa Sharpe Other Provider [phone] MD Mike Burleson Other Provider [phone] SIMON, ALBERTAMED F Attending Unavailable SIMON, ALBERTAMED F Attending Unavailable LINDSEY Soto Attending Provider MD Kait Dan Emergency Provider [phone] DO Teresa Lynch Primary Care Provider [phone] MD João Powell Admit Provider MD João Powell Attending Provider MD Lyssa Sharpe Other Provider MD Mike Burleson Other Provider [phone] DO Scottie Bonilla Emergency Provider DO Luther Dozier Other Provider MD Jbo Jmaes Other Provider MD Remberto Ervin Attending Provider Rubin, Bonilla Emergency Provider [phone] DO Luther Dozier Other Provider MD Job James Other Provider MD Remberto Ervin Attending Provider Kait Dan MD Emergency Provider Teresa Lynch DO Primary Care Provider Andre HERRERA, João Admit Provider Andre [facility]A, [facility] Attending Provider Lyssa Sharpe MD Other Provider Mike Burleson MD Other Provider [phone] Scottie BRICENO, [facility] Emergency Provider Luther Dozier DO Other Provider Jacob HERRERA, Job Other Provider Remberto Ervin MD Attending Provider Mike Burleson MD Attending Provider Marybel Sanchez Unavailable Unavailable Teresa Lynch DO Primary Care Provider [phone] Namita Mercer LPN. Unavailable Unava ilable Teresa Lynch MD Unavailable Yeyo ROWE Attending Unavailable Yeyo ROWE Admitting Unavailable Yeyo ROWE Attending Unavailable Elan Antonio Attending Unavailable VANESSA INMAN Attending Unavailable KUNS, TERESA P Primary Care Unavailable BERNARD DE LA CRUZ Attending Unavailable JETTSTERESA Primary Care Unavailable HighlPaula delcid Attending Unavailable Paula Soto Admitting Unavailable Shana Mclaughlin Referring Unavailable Shana Mclaughlin Attending Unavailable Lowe, Shana Admitting Unavailable Kuns, Teresa Primary Care Unavailable Kuns, Teresa Primary Care Unavailable Mike Burleson Attending Unavailable Mike Burleson Admitting Unavailable Lyssa Sharpe Consulting Unavailable Albert Powellamasarah Attending Unavailable Andre, Albertamad Admitting Unavailable Kuns, Teresa Primary Care Unavailable Mike Burleson Consulting Unavailable Remberto Ervin Attending Unavailable Andre, Mohamad Admitting Unavailable Luther Dozier Consulting Unavailable Kuns, Teresa Primary Care Unavailable Job James Consulting Unavailable Mike Burleson Consulting Unavailable Nancy Wilson Attending Unavailable Nancy Wilson Admitting Unavailable Kuns, Teresa Primary Care Unavailable Highlbhavin, Paula Hooker Attending Unavailable Highlbhavin, Peter D Admitting Unavailable Highlbhavin, Paula D Attending Unavailable Highlbhavin, Peter D Admitting Unavailable Kuns, Teresa Primary Care Unavailable Highlander, Peter D Admitting Unavailable Highlander, Peter Sarah Attending Unavailable Unavailable Primary Care Provider Unavailabl e Allergies Allergy Classification Reported Allergen(s) Allergy Type Date of Onset Reaction(s) Facility (20 sources) natural latex rubber; Translations: [LATEX] Allergy to substance (finding) 03-27-20 23 Itching (finding), Eruption of skin (disorder) [facility] (20 sources) Penicillins; Translations: [Penicillins] Allergy to drug (finding) 11-05-19 14 Anaphylactoid reaction (disorder) [facility] (20 sources) Acetaminophen / oxyCODONE Drug Allergy 03-14-20 17 vomiting [facility] Other (20 sources) tamsulosin; Translations: [TAMSULOSIN] Drug Allergy 07-14-[address] [facility] (20 sources) PENICIILIN Propensity to adverse reactions SWELLING OF AIRWAY [facility] Other (20 sources) Acetaminophen; Translations: [ACETAMINOPHEN] Drug Allergy 07-14-19 [address] [facility] (20 sources) oxyCODONE; Translations: [Oxycodone] Drug Allergy 02-08-20 [address] [facility] (1 source) Penicillins Drug allergy (disorder) 09-23-19 14 [facility] (20 sources) Penicillin G; Translations: [penicillin G benzathine] Drug Allergy [facility] (10 sources) Penicillin; Translations: [Penicillin] Drug Allergy anaphylaxis, Anaphylactoid reaction (disorder) [facility] (20 sources) Latex Allergy to substance 03-27-20 23 Unknown, Dermatitis, Itching, Rash [facility] (20 sources) Penicillins Drug Allergy 11-05-19 14 Anaphylaxis, Hives [facility] (18 sources) Isosorbide; Translations: [ISOSORBIDE MONONITRATE] Drug Allergy 08-05-19 15 Other (See Comments) [facility] (1 source) Acetaminophen / oxyCODONE Drug Allergy 03-14-20 17 [facility] (5 sources) Isosorbide Dinitrate Drug Allergy 08-05-19 15 Other, Other (See Comments) [facility] (1 source) Latex Propensity to adverse reactions 03-27-20 23 Dermatitis, Itching, Rash, Unknown [facility] (1 source) Penicillins Drug Intolerance 11-05-19 14 Anaphylaxis, Hives [facility] (5 sources) Propoxyphene Drug Allergy 03-14-20 17 [facility] (1 source) Latex Drug allergy (disorder) 05-07-[address] [facility] (1 source) Penicillins Drug allergy (disorder) 05-07-[address] [facility] (1 source) tamsulosin Drug Allergy 07-31-[address] [facility] Medications Current Medications Medication Drug Class(es) Dates Sig (Normalized) Sig (Original) acetaminophen 325 mg / HYDROcodone bitartrate 5 mg oral tablet (20 sources) Opioid Agonist Start: 07-26-2023 End: 03-03-2024 take 1 tablet by mouth four times daily as needed Hydrocodone-Acetami nophen 5-325 mg tablet Discontinued TAB PO July 26, 2023 12:00am March 03, 2024 1:28pm FreeTextSi tablet Orally QID PRN; Note: Source Status: Refill; Refills: 0; Provider: Rory Guerra Start: 07-26-2023 End: 03-03-2024 HYDROcodone-acetaminophen (N orco) 5-325 MG tablet 12/12/2023 Active Start: 04-11-2023 take 1 tablet by kalie [...] 1 tablet by mouth every six hours as needed for pain Hydrocodone-Acetaminophen 5-325 mg table t Discontinued 1 TAB PO Q6H as needed for Pain July 24, 2019 12:00am July 14, 2020 11:39am Start: 07-24-2019 End: 07-14-2020 Start: 10-10-2014 [place] 325 mg-5 mg oral tablet 1 tab(s), Oral, q4hr for pain, 12 tab(s), Refill(s) 0 Start Date: 10/10/14 Status: Ordered [id number] 200 actuat albuterol 0.09 mg/actuat metered dose inhaler (20 sources) beta2-Adrenergic Agonist Start: 11-23-2022 take 2 puff(s) by inhalation every four hours as needed albuterol (PROAIR HFA) 90 mcg/actuation inhaler Inhale 2 puffs every 4 (four) hours as needed. 11/23/2022 Active Start: 11-23-2022 ProAir HFA Inh alation, q6hr Shortness of breath or wheezing Start Date: 11/23/22 Status: Ordered Start: 11-23-2022 ProAir HFA Inh alation, q6hr Start Date: 11/23/22 Status: Ordered Start: 06-28-2019 take 1 puff(s) by in halation every six hours as needed Albuterol Sulfate (Proair Hfa) 90 mcg/actuation Hfa Aerosol Inhaler Active 2 PUFF INHALATION Every 6 hours as needed for Shortness Of Breath June 28, 2019 12:00am Start: 06-28-2019 Start: 06-28-2019 take 1 puff(s) [...] by in halation in the morning albuterol HFA 90 mcg/act inhaler Inhale 2 puffs in the morning [...] (20 sources) Tricyclic Antidepressant Start: 07-12-2023 End: 03-13-2024 take 1 tablet by mouth once daily amitriptyline (ELAVIL) 25 mg tablet Take 1 tablet (25 mg total) by mouth nightly. 09/03/2023 Active Start: 07-12-2023 End: 03-06-2024 take 4 tablets by mouth once daily Amitriptyline 25 mg tablet Discontinued 100 MG PO Daily July 12, 2023 12:00am March 06, 2024 11:39am Start: 07-12-2023 End: 03-06-2024 take 100 mg by mouth once daily Amitriptyline Disconti nued 100 MG PO Daily July 12, 2023 1:00am March 06, 2024 12:39pm Start: 11-23-2022 take 1 tablet by kalie th once daily amitriptyline (ELAVIL) 100 mg tablet Take 1 tablet (100 mg total) by mouth nightly. 09/03/2023 Active take 0.5-1 tablets b y mouth once daily at bedtime Amitriptyline HCl 25 MG 1/2-1 tab Orally QHS Active ascorbic acid 500 mg chewable tablet (3 sources) Vitamin C take 1 tablet by kalie th once daily ascorbic acid (Vitamin C) 500 MG tablet Take 1 tablet (500 mg) by mouth once daily. Active take 1 tablet by mouth once suzanne y ascorbic acid (Vitamin C) 500 mg tablet [...] DAILY. Quantity: 90 Refills: 3 Ordered: 26-Oct-2021 Vanessa Inman MD Start : 22-Jun-2021 Active fill at patients request Start: 04-01-2018 End: 04-05-2024 take 1 tablet by mouth once daily Aspirin 81 mg Tablet,Chewable Discontinued 81 MG PO Daily March 31, 2018 11:00pm April 05, 2024 12:54pm Aspirin 81 mg Tab-EC (14 sources) Start: 07-10-2014 Aspirin 81 mg Tab-EC Refills(s) 0 Start Date: 07/10/14 Status: Ordered atorvastatin 80 mg oral tablet (20 sources) HMG-CoA Reductase Inhibitor Start: 04-04-2024 take 1 tablet by mouth once daily Atorvastatin 80 mg tablet Active 80 MG PO Daily April 03, 2024 11:00pm Start: 03-13-2024 End: 04-04-2024 take 1 tablet by mouth once daily in the evening Atorvastatin (Lipitor) 40 mg tablet Discontinued 40 MG PO Every evening March 12, 2024 11:00pm April 04, 2024 4:14pm Start: 07-10-2014 End: 03-13-2024 take 1 tablet by mouth in the morning atorvastatin (LIPITOR) 80 mg tablet Take 1 tablet (80 mg total) by mouth in the morning. 10/06/2023 Active Blood Glucose Meter kit (20 sources) Start: 12-16-2013 Start: 12-16-2013 Blood Glucose Meter kit as directed BID Dec, Active Blood Glucose Monitoring Sup pl (ONE TOUCH ULTRA 2) w/Device kit (1 source) Start: 08-17-2023 Blood Glucose Monitoring Suppl (ONE TOUCH ULTRA 2) w/Device kit USE TO TEST BLOOD SUGARS ONCE A DAY 08/17/2023 Active Blood Pressure Kit - (20 sources) Start: 09-20-2019 Start: 09-20-2019 Blood Pressure Kit - check bp 1-2 times a day and prn Sep, Active 120 actuat budesonide 0.16 mg/actuat / formoterol fumarate 0.0045 mg/actuat metered dose inhaler (20 sources) Corticosteroid, beta2-Adrenergic Agonist Start: 04-05-2024 take 1 puff(s) by inhalation twice daily Budesonide-Formoterol 160-4.5 mcg/actuation HFA aerosol inhaler Active 2 PUFF INHALATION Twice daily April 04, 2024 11:00pm Start: 03-13-2024 End: 04-05-2024 take 1 puff(s) by inhalation twice daily Budesonide-Formoterol (Symbicort) 80-4.5 mcg/actuation Hfa Aerosol Inhaler Discontinued 2 PUFF INHALATION Twice daily March 12, 2024 11:00pm April 05, 2024 12:45pm Start: 03-13-2024 Start: 07-12-2023 End: 03-03-2024 Budesonide-Formoterol (Symbi leonid) 160-4.5 mcg/actuation HFA aerosol inhaler Discontinued 1 INH INHALATION Twice daily July 12, 2023 12:00am March 03, 2024 1:28pm Start: 07-12-2023 End: 03-03-2024 cephalexin 500 mg oral capsule (2 sources) Cephalosporin Antibacterial Start: 04-19-2024 take 1 capsule by mouth twice daily Cephalexin 500 mg capsule Active 500 MG PO Twice daily April 19, 2024 12:00am clarithromycin 500 mg oral tablet (6 sources) Macrolide Antimicrobial Start: 08-02-2021 take 1 tablet by mouth every twelve hours Clarithromycin 500 MG 1 tablet Orally every 12 hrs for 10 day(s) Jul, Active clopidogrel 75 mg oral tablet (20 sources) [id number] Platelet Inhibitor Start: 07-10-2014 End: 03-06-2024 take 1 tablet by mouth once daily Clopidogrel 75 mg tablet Active 75 MG PO Daily March 07, 2024 11:00pm 0.5 ml dulaglutide 1.5 mg/ml auto-injector (20 sources) GLP-1 Receptor Agonist Start: 04-04-2024 End: 04-05-2024 Dulaglutide (Trulicity) 0.75 mg/0.5 mL pen injector Discontinued MG SUBCUT April 03, 2024 11:00pm April 05, 2024 1:02pm Start: 07-12-2023 inject 0.5 mL by sub cutaneous injection every week dulaglutide 0.75 mg/0.5 mL pen injector Inject 0.5 mL (0.75 mg total) under the skin once a week. 07/12/2023 Active Start: 07-27-2021 End: 03-13-2024 inject 0.75 mg by subcutaneous injection every week Trulicity Pen 0.75 mg/0.5 mL subcutaneous solution 0.75 mg, SubCutaneous, qWeek, Refills(s) 0 Start Date: 02/12/24 Status: Ordered Start: 07-27-2021 End: 11-10-2023 inject 0.75 mg by subcutaneous injection every week dulaglutide (TRULICITY) 1.5 mg/0.5 mL pen injector Inject 0.75 mg under the skin once a week. 01/30/2023 Active empagliflozin 10 mg oral tablet (20 sources) Sodium-Glucose Cotransporter 2 Inhibitor Start: 11-23-2022 take 1 tablet by mouth once daily in the morning Jardiance 10 mg oral tablet 10 mg = 1 tab(s), Oral, qAM Start Date: 11/23/22 Status: Ordered Start: 09-28-2020 take 1 tablet by kalie th every twenty-four hours Jardiance 25 MG 1 tablet Orally Once a day for 30 day(s) Sep, Active Ensure (3 sources) Start: 02-21-2024 Ensure 237 mL, Oral, BIDWM, Refill(s) 0 Start Date: 02/21/24 Status: Ordered famotidine 40 mg oral tablet (14 sources) [...] Refills(s) 0 Start Date: 10/31/13 Status: Ordered Flash Glucose Scanning Belden (Freestyle Jigar 2 Belden) misc (5 sources) Start: 12-28-2023 Flash Glucose Scanning Belden (Freestyle Jigar 2 Belden) misc Active 0 .Route December 27, 2023 11:00pm As directed Start: 12-28-2023 Flash Glucose Scanning Belden (Freestyle Jigar 2 Belden) misc Active 0 .Route December 28, 2023 12:00am As directed Start: 12-28-2023 Flash Glucose Scanning Belden (Freestyle Jigar 2 Belden) misc Active 0 .ROUTE December 28, 2023 12:00am As directed Flash Glucose Sensor (Freest yle Jigar 2 Sensor) kit (5 sources) Start: 12-28-2023 Flash Glucose Sensor (Freestyle Jigar 2 Sensor) kit Active 0 .Route December 27, 2023 11:00pm As directed Start: 12-28-2023 Flash Glucose Sensor (Freestyle Jigar 2 Sensor) kit Active 0 .Route December 28, 2023 12:00am As directed Start: 12-28-2023 Flash Glucose Sensor (Freestyle Jigar 2 Sensor) kit Active 0 .ROUTE December 28, 2023 12:00am As directed 1.5 ml fremanezumab-vfrm 150 mg/ml auto-injector (20 sources) Start: 07-18-2023 inject 1.5 mL by subcutaneous injection every 30 days AJOVY AUTOINJECTOR 225 mg/1.5 mL Inject 1.5 mL (225 mg total) under the skin every 30 (thirty) days. 07/18/2023 Active Start: 07-12-2023 End: 03-03-2024 Fremanezumab-Vfrm (Ajovy Aut oinjector) 225 mg/1.5 mL auto-injector Discontinued 225 MG SUBCUT Q30D July 12, 2023 12:00am March 03, 2024 1:28pm furosemide 40 mg oral tablet (20 sources) Loop Diuretic Start: 07-26-2023 End: 07-25-2024 take 1 tablet by mouth once daily furosemide 40 mg Tab 40 mg = 1 tab(s), Oral, Daily, Refills(s) 0 Start Date: 02/12/24 Status: Ordered Start: 07-12-2023 End: 03-08-2024 take 2 tablets by mouth once daily in the morning Furosemide (Lasix) 20 mg tablet Discontinued 40 MG PO Every morning March 02, 2024 11:00pm March 08, 2024 5:26pm Start: 07-12-2023 End: 03-03-2024 take 1 tablet by mouth once daily in the morning Furosemide (Lasix) 20 mg tablet Discontinued 20 MG PO Every morning July 12, 2023 12:00am March 03, 2024 1:29pm Start: 03-13-2019 End: 07-14-2020 take 1 tablet by mouth once daily Furosemide 20 mg Tablet Discontinued 20 MG PO Daily March 12, 2019 11:00pm July 14, 2020 11:39am Start: 03-13-2019 End: 07-14-2020 gabapentin 300 mg oral capsule (1 source) Anti-epileptic Agent Start: 11-14-2023 End: 11-21-2023 take 1 capsule by mouth three times daily gabapentin (NEURONTIN) 300 mg capsule Indications: Post-op pain Take 1 capsule (300 mg total) by mouth 3 (three) times a day for 7 days. 21 capsule 11/14/2023 11/21/2023 Active glimepiride 2 mg oral tablet (20 sources) Sulfonylurea Start: 10-31-2013 End: 03-06-2024 take 1 tablet by mouth twice daily Glimepiride 2 mg tablet Active 2 MG PO Twice daily April 04, 2024 11:00pm Insulin Aspart U-100 (Novolog Flexpen U-100 Insulin) 100 unit/mL (3 mL) insulin pen (4 sources) Start: 04-08-2024 Insulin Aspart U-100 (Novolog Flexpen U-100 Insulin) 100 unit/mL (3 mL) insulin pen Active 0 UNIT SUBCUT 3X/Day with meals and bedtime April 08, 2024 3:23pm Please contact the information source for Protocol details. Start: 04-05-2024 End: 04-08-2024 Insulin Aspart U-100 (Novolo g Flexpen U-100 Insulin) 100 unit/mL (3 mL) insulin pen Discontinued 0 UNIT SUBCUT 3X/Day with meals and bedtime April 05, 2024 2:15pm April 08, 2024 3:25pm Please contact the information source for Protocol details. Insulin Lispro (7 sources) Insulin Analog Start: 02-21-2024 insulin lispro 0-10 Unit(s), SubCutaneous, QIDACHS, Refills(s) 0 Start Date: 02/21/24 Status: Ordered Start: 02-20-2024 End: 02-20-2024 HumaLOG Sliding Scale 0-10 U nit(s), Injection-Insulin, SubCutaneous, Start date 02/20/24 4:30:00 PM EDT Start Date: 02/20/24 Stop Date: 02/20/24 Status: Completed Insulin Lispro 1 00 UNIT/ML solution Inject under the skin. Take as directed per insulin instructions. Active insulin lispro ( HumaLOG) 100 unit/mL injection Inject under the skin. Take as directed per insulin instructions. Active Insulin Syringe,Safety Needle (1 source) Start: 03-29-2024 Insulin Syringe,Safety Needle Active 0 .Route 100 March 29, 2024 12:00am As directed 24 hr isosorbide mononitrate 30 mg extended release oral tablet (20 sources) Nitrate Vasodilator Start: 01-11-2023 End: 03-06-2024 take 1 tablet by mouth once daily in the morning isosorbide mononitrate 30 mg ER Tab 30 mg = 1 tab(s), Oral, qAM, Refills(s) 0 Start Date: 02/12/24 Status: Ordered Start: 07-11-2014 take 1 tablet by kalie th once daily in the morning Imdur 60 mg ER Tab 60 mg = 1 tab(s), Oral, qAM, # 30 tab(s), Refills(s) 0 Start Date: 07/11/14 Status: Ordered Tenzin packet (3 sources) Start: 02-21-2024 Tenzin packet Oral, BID, Refill(s) 0 Start Date: 02/21/24 Status: Ordered loperamide hydrochloride 2 mg oral tablet (3 sources) Opioid Agonist take 1 tablet by mouth four times daily as needed for diarrhea loperamide (Imodium A-D) 2 MG tablet Take 1 tablet (2 mg) by mouth 4 times a day as needed for diarrhea. Active metFORMIN hydrochloride 1000 mg oral tablet (20 sources) Biguanide Start: 06-06-2012 End: 03-13-2024 take 1 tablet by mouth twice daily metformin 1000 mg Tab 1,000 mg = 1 tab(s), Oral, BID, Refills(s) 0 Start Date: 02/12/24 Status: Ordered take 1 tablet by kalie th every twelve hours metFORMIN (GLUCOPHAGE) 1000 mg tablet Ta ke 1 tablet (1,000 mg total) by mouth every 12 (twelve) hours. Active take 1 tablet by kalie th every twelve hours metFORMIN (Glucophage) 1,000 mg tablet T valeriano 1 tablet (1,000 mg) by mouth every 12 hours. Active metoprolol tartrate 25 mg oral tablet (20 sources) beta-Adrenergic Lamont Start: 03-13-2024 take 1 tablet by mouth twice daily Metoprolol Tartrate 25 mg Tablet Active 25 MG PO Twice daily 0 March 12, 2024 11:00pm Hold for SBP Start: 03-08-2024 End: 03-13-2024 Metoprolol Tartrate 100 mg t ablet Discontinued 50 MG PO Twice daily March 07, 2024 11:00pm March 13, 2024 12:06pm Start: 03-08-2024 End: 03-13-2024 take 50 mg by mouth twice daily Metoprolol Tartrate Di scontinued 50 MG PO Twice daily March 08, 2024 12:00am March 13, 2024 1:06pm Start: 03-06-2024 End: 03-08-2024 Metoprolol Tartrate 100 mg t ablet Discontinued 12.5 MG PO Twice daily 180 March 06, 2024 11:38am March 08, 2024 1:53pm Start: 02-21-2024 End: 02-21-2024 metoprolol tartrate 100 mg T ab 50 mg = 0.5 tab(s), Tab, Oral, Start date 02/21/24 9:00:00 AM EDT, 02/12/24 20:07:00 EDT Start Date: 02/21/24 Stop Date: 02/21/24 Status: Completed Start: 01-01-2024 End: 12-31-2024 take 1 tablet by mouth once daily metoprolol succinate XL (Toprol-XL) 25 mg 24 hr tablet Indications: Coronary artery disease involving [place] coronary artery of [place] heart without angina pectoris Take 1 tablet (25 mg) by mouth once daily. Do not crush or chew. 90 tablet 3 01/01/2024 12/31/2024 Active Start: 04-01-2018 End: 03-06-2024 metoprolol tartrate 100 mg T ab 50 mg = 0.5 tab(s), Oral, BID, Refills(s) 0 Start Date: 02/12/24 Status: Ordered Start: 04-01-2018 End: 03-06-2024 take 50 mg [...] times a day. 10/24/2023 Discontinued (Therapy completed) 24 hr nicotine 0.583 mg/hr transdermal system (3 sources) Cholinergic Nicotinic Agonist Start: 02-21-2024 nicotine 14 mg/24 hr Transderm ER Film TransDermal, Daily, Refill(s) 0 Start Date: 02/21/24 Status: Ordered nitroglycerin 0.4 mg sublingual tablet (20 sources) Nitrate Vasodilator Start: 07-10-2014 End: 03-13-2019 Nitroglycerin (Nitrostat) 0.4 mg tablet, sublingual Active 0.4 MG SUBLINGUAL every 5 to 15 minutes as needed for chest pain July 12, 2023 12:00am do not exceed 3 doses per episode nitroglycerin (N itrostat) 0.[address] 1 tablet (0.4 mg total) under the tongue every 5 (five) minutes as needed for chest pain. Active omeprazole 40 mg delayed release oral capsule (20 sources) Proton Pump Inhibitor Start: 11-23-2022 Prilosec Oral, Daily Start Date: 11/23/22 Status: Ordered Start: 07-24-2019 End: 07-26-2023 take 2 capsules by mouth once daily Omeprazole 20 mg Capsule,Delayed Release(Dr/Ec) Discontinued 40 MG PO Daily July 24, 2019 12:00am July 26, 2023 4:38pm Start: 07-24-2019 End: 07-26-2023 take 40 mg by mouth once daily Omeprazole Discontinued 40 MG PO Daily July 24, 2019 1:00am July 26, 2023 5:38pm Start: 07-24-2019 take 20 mg by mouth once daily Omeprazole Active 20 MG PO Daily July 24, 2019 1:00am Start: 01-02-2018 End: 04-05-2024 take 1 capsule by mouth once daily omeprazole 40 mg Cap-DR 40 mg = 1 cap(s), Oral, Daily, Refills(s) 0 Start Date: 02/12/24 Status: Ordered take 2 tablets by mo uth twice daily before mealtime omeprazole OTC (PriLOSEC OTC) 20 mg EC tablet Take 2 tablets (40 mg) by mouth 2 times a day before meals. Do not crush, chew, or split. Active ONETOUCH ULTRA2 METER misc (18 sources) Start: 08-17-2023 ONETOUCH ULTRA 2 METER misc 1 Unit by subconjunctival route in the morning. 08/17/2023 Suspended Start: 08-17-2023 ONETOUCH ULTRA 2 METER misc 1 Unit by subconjunctival route in the morning. 08/17/2023 Active pregabalin 200 mg oral capsule (20 sources) Start: 03-13-2024 End: 04-05-2024 take 1 capsule by mouth twice daily Pregabalin 50 mg Capsule Discontinued 50 MG PO Twice daily 0 March 12, 2024 11:00pm April 05, 2024 12:35pm Start: 01-24-2011 End: 03-13-2024 take 1 capsule by mouth three times daily pregabalin (LYRICA) 200 mg capsule Take 1 capsule (200 mg total) by mouth 3 (three) times a day. 09/28/2023 Active ProAir HFA 108 (90 Base) MCG/ACT (20 sources) Start: 12-04-2017 take 2 puff(s) by inhalation every four hours as needed ProAir HFA 108 (90 Base) MCG/ACT 2 puffs as needed Inhalation Q4H PRN PRN Dec, Active Start: 12-04-2017 take 2 puff(s) by inhalation e very four hours as needed rivaroxaban 2.5 mg oral tablet (6 sources) Factor Xa Inhibitor Start: 11-08-2023 End: 12-08-2023 take 1 tablet by mouth in the morning, then take 1 tablet by mouth at bedtime rivaroxaban (XARELTO) 2.5 mg tablet Take 1 tablet (2.5 mg total) by mouth in the morning and 1 tablet (2.5 mg total) before bedtime. Do all this for 30 days. 60 tablet 11/08/2023 12/08/2023 Active rOPINIRole 0.5 mg oral tablet (20 sources) Nonergot Dopamine Agonist Start: 10-31-2024 take 1 tablet by mouth three times daily Ropinirole 0.5 mg tablet Active 0.5 MG PO Three times daily April 03, 2024 11:00pm Start: 03-13-2024 End: 04-04-2024 take 0.5 mg by mouth three times daily Ropinirole 1 mg tablet Discontinued 0.5 MG PO Three times daily 240 March 13, 2024 12:01pm April 04, 2024 4:16pm Start: 03-13-2024 take 0.5 mg by mouth three times daily Ropinirole Active 0.5 MG PO Three times daily 240 March 13, 2024 1:01pm Start: 01-24-2011 End: 03-13-2024 take 1 tablet by mouth three times daily ropinirole 1 mg Tab 1 mg = 1 tab(s), Oral, TID, Refills(s) 0 Start Date: 02/12/24 Status: Ordered sennosides, residential 8.6 mg oral tablet (3 sources) Start: 02-21-2024 take 1 tablet by mouth twice daily senna 8.6 mg Tab 8.6 mg = 1 tab(s), Oral, BID, Refills(s) 0 Start Date: 02/21/24 Status: Ordered sildenafil 100 mg oral tablet (20 sources) Phosphodiesterase 5 Inhibitor Start: 04-05-2024 End: 04-05-2024 Sildenafil 100 mg tablet Active 100 MG PO Daily as needed for sexual activity April 05, 2024 2:30pm administer 30 minutes to 4 hours before activity Start: 03-08-2024 End: 03-13-2024 Sildenafil (Viagra) 100 mg t ablet Discontinued 100 MG PO Daily as needed for sexual activity March 07, 2024 11:00pm March 13, 2024 12:06pm administer 30 minutes to 4 hours before activity Start: 05-07-2018 End: 03-03-2024 take 1 tablet by mouth once daily as needed sildenafil (Viagra) 100 MG tablet TAKE 1 TABLET BY MOUTH EVERY DAY NEEDED 05/16/2023 Active SITagliptin 100 mg oral tablet (20 sources) Dipeptidyl Peptidase 4 Inhibitor Start: 07-09-2020 End: 03-03-2024 take 1 tablet by mouth once daily Januvia 100 mg Tab 100 mg = 1 tab(s), Oral, Daily Start Date: 11/23/22 Status: Ordered tamsulosin hydrochloride 0.4 mg oral capsule (20 sources) alpha-Adrenergic Lamont Start: 05-27-2024 take 1 capsule by mouth twice daily tamsulosin 0.4 mg Cap 0.4 mg = 1 cap(s), Oral, BID, # 60 cap(s), Refills(s) 11, Pharmacy: [facility]/pharmacy #[id number], 182, cm, 05/27/24 15:08:00 EST, Height/Length Dosing, 88.5, kg, 05/27/24 15:08:00 EST, Weight Dosing Start Date: 05/27/24 Status: Ordered Start: 03-08-2024 take 1 capsule by mo uth twice daily Tamsulosin (Flomax) 0.4 mg capsule Active 0.4 MG PO Twice daily March 07, 2024 11:00pm Start: 02-21-2024 End: 02-21-2024 tamsulosin 0.4 mg Cap 0.4 mg = 1 cap(s), Cap, Oral, Start date 02/21/24 9:00:00 AM EDT, 02/12/24 18:02:00 EDT Start Date: 02/21/24 Stop Date: 02/21/24 Status: Completed Start: 06-26-2023 take 1 capsule by mo uth once daily tamsulosin (FLOMAX) 0.4 mg capsule Take 1 capsule (0.4 mg total) by mouth nightly. 06/26/2023 Active Start: 02-14-2023 End: 03-06-2024 take 1 capsule by mouth at bedtime tamsulosin (FLOMAX) 0.4 mg capsule Take 1 capsule (0.4 mg total) by mouth in the morning and at bedtime. 06/26/2023 Active take 1 capsule by mo uth once daily Tamsulosin HCl - 0.4 MG Oral Capsule TAKE 1 CAPSULE Daily Quantity: 0 Refills: 0 Ordered: 15-Feb-2023 DO Active TENS Unit (20 sources) Start: 01-27-2014 Start: 01-27-2014 TENS Unit as d irected Use as directed. Jan, Active 10 actuat tiotropium 0.0025 mg/actuat inhalation spray (20 sources) Anticholinergic Start: 12-20-2022 take 2 puff(s) by mouth once daily Spiriva Respimat 2.5 MCG/ACT inhaler INHALE 2 PUFFS BY MOUTH ONCE DAILY 12/20/2022 Active Start: 11-23-2022 take 1 capsule by in halation once daily tiotropium (SPIRIVA WITH HANDIHALER) 18 [...] Refills: 0 Ordered: 26-Oct-2021 DO Active Tiotropium [place] (Spiriva With Handihaler) 18 mcg capsule, w/inhalation device (15 sources) Start: 03-03-2024 take 1 capsule by inhalation once daily Tiotropium [place] (Spiriva With Handihaler) 18 mcg capsule, w/inhalation device Active 1 CAP INHALATION Daily March 02, 2024 11:00pm puncture 1 cap using device; one dose = 2 inhalations Start: 03-03-2024 take 1 capsule by in halation once daily Tiotropium [place] (Spiriva With Handihaler) 18 mcg capsule, w/inhalation device Active 1 CAP INHALATION Daily March 03, 2024 12:00am puncture 1 cap using device; one dose = 2 inhalations Start: 07-12-2023 End: 03-03-2024 take 1 capsule by inhalation once daily Tiotropium [place] (Spiriva With Handihaler) 18 mcg capsule, w/inhalation device Discontinued 1 CAP INHALATION Daily July 12, 2023 12:00am March 03, 2024 1:29pm puncture 1 cap using device; one dose = 2 inhalations Start: 07-12-2023 End: 03-03-2024 take 1 capsule by inhalation once daily Tiotropium [place] (Spiriva With Handihaler) 18 mcg capsule, w/inhalation device Discontinued 1 CAP INHALATION Daily July 12, 2023 1:00am March 03, 2024 2:29pm puncture 1 cap using device; one dose = 2 inhalations Start: 07-12-2023 take 1 capsule by in halation once daily Tiotropium [place] (Spiriva With Handihaler) 18 mcg capsule, w/inhalation device Active 1 CAP INHALATION Daily July 12, 2023 1:00am puncture 1 cap using device; one dose = 2 inhalations Start: 07-12-2023 take 1 capsule by in halation once daily Tiotropium [place] (Spiriva With Handihaler) 18 mcg capsule, w/inhalation device Active 1 CAP INHALATION Daily July 12, 2023 12:00am puncture 1 cap using device; one dose = 2 inhalations ubrogepant 100 mg oral tablet (19 sources) take 1 tablet by mouth once [...] Sig (Original) acetaminophen 325 mg oral tablet (20 sources) Start: 03-13-2024 End: 04-04-2024 take 2 tablets by mouth every eight hours as needed for pain Acetaminophen (Tylenol) 325 mg Tablet Discontinued 650 MG PO Q8H as needed for Pain 0 March 12, 2024 11:00pm April 04, 2024 4:14pm take 2 tablets by mo uth every [...] / oxyCODONE hydrochloride 5 mg oral tablet (6 sources) Opioid Agonist Start: 09-22-2023 take 1 tablet by mouth every four hours as needed oxyCODONE-acetaminophen (PERCOCET) 5-325 mg per tablet Take 1 tablet by mouth every 4 (four) hours as needed. 09/22/2023 Suspended alogliptin 25 mg oral tablet (20 sources) [...] 2020 8:18am ALPRAZolam 0.5 mg oral tablet (20 sources) [...] 12, 2019 11:00pm July 24, 2019 1:52pm Start: 03-13-2019 End: 07-24-2019 End: 10-24-2023 take 1 tablet by mouth three times daily as needed ALPRAZolam (Xanax) 0.5 mg tablet Take 1 tablet (0.5 mg) by mouth 3 times a day as needed. 10/24/2023 Discontinued (Therapy completed) amLODIPine 10 mg oral tablet (20 sources) Dihydropyridine Calcium Channel Lamont Start: 04-01-2018 End: 07-24-2019 take 5 mg by mouth once daily Amlodipine 10 mg Tablet Discontinued 5 MG PO Daily March 31, 2018 11:00pm July 24, 2019 1:52pm Start: 04-01-2018 End: 07-24-2019 take 5 mg by mouth once daily Amlodipine Discontinued 5 MG PO Daily April 01, 2018 12:00am July 24, 2019 2:52pm Start: 10-31-2013 take 1 tablet by kalie th once daily Norvasc 5 mg Tab 5 mg = 1 tab(s), Oral, Daily, Refills(s) 0 Start Date: 10/31/13 Status: Ordered baclofen 10 mg oral tablet (8 sources) gamma-Aminobutyric Acid-ergic Agonist Start: 03-03-2024 End: 03-08-2024 take 1 tablet by mouth every six hours as needed for muscle spasms Baclofen 10 mg tablet Discontinued 10 MG PO Every 6 hours as needed for muscle spasm March 02, 2024 11:00pm March 08, 2024 5:25pm Blood-Glucose Meter,Continuou s (Freestyle Jigar 3 [place]) misc (5 sources) Start: 12-25-2023 End: 12-28-2023 Blood-Glucose Meter,Continuous (Freestyle Jigar 3 [place]) misc Discontinued 0 .Route December 24, 2023 11:00pm December 28, 2023 10:03am As directed Start: 12-25-2023 End: 12-28-2023 Blood-Glucose Meter,Continuo us (Freestyle Jigar 3 [place]) misc Discontinued 0 .Route December 25, 2023 12:00am December 28, 2023 11:03am As directed Blood-Glucose Sensor (Freest yle Jigar 3 Sensor) device (5 sources) Start: 12-25-2023 End: 12-28-2023 Blood-Glucose Sensor (Freest yle Jigar 3 Sensor) device Discontinued 0 .Route December 24, 2023 11:00pm December 28, 2023 10:03am As directed Start: 12-25-2023 End: 12-28-2023 Blood-Glucose Sensor (Freest yle Jigar 3 Sensor) device Discontinued 0 .Route December 25, 2023 12:00am December 28, 2023 11:03am As directed busPIRone hydrochloride 10 mg oral tablet (14 sources) Start: 03-13-2019 End: 07-24-2019 take 1 tablet by mouth twice daily Buspirone 10 mg Tablet Discontinued 10 MG PO Twice daily March 12, 2019 11:00pm July 24, 2019 1:52pm diazePAM 5 mg oral tablet (20 sources) Benzodiazepine Start: 07-26-2023 End: 03-03-2024 take 1 tablet by mouth once daily as needed Diazepam 5 mg tablet Discontinued 5 MG PO Daily July 26, 2023 12:00am March 03, 2024 1:28pm FreeTextSi tablet as needed Orally Once a day; Note: Source Status: Takingprn; Refills: 0; Provider: Rory Guerra Start: 05-21-2020 End: 07-12-2023 take 1 tablet by mouth once daily as needed for anxiety Diazepam 5 mg tablet Discontinued 5 MG PO Daily as needed for Anxiety July 14, 2020 12:00am July 12, 2023 5:30pm dicyclomine hydrochloride 20 mg oral tablet (20 sources) Anticholinergic Start: 05-22-2020 End: 07-12-2023 take 1 tablet by mouth three times daily Dicyclomine 20 mg tablet Discontinued 20 MG PO Three times daily July 14, 2020 12:00am July 12, 2023 5:30pm doxycycline hyclate 100 mg oral capsule (12 [...] Weight Dosing Start Date: 01/30/23 Status: Ordered DULoxetine 30 mg delayed release oral capsule (20 sources) Serotonin and Norepinephrine Reuptake Inhibitor Start: 03-13-2024 End: 04-04-2024 take 1 capsule by mouth once daily at bedtime Duloxetine 30 mg Capsule,Delayed Release(Dr/Ec) Discontinued 30 MG PO Daily at bedtime 0 March 12, 2024 11:00pm April 04, 2024 4:14pm take 1 capsule by mouth in the m orning DULoxetine (CYMBALTA) 60 mg capsule Take 1 capsule (60 mg total) by mouth in the morning. Active ferrous sulfate 325 mg oral tablet (20 sources) Start: 03-06-2024 End: 04-23-2024 take 1 tablet by mouth every other day Ferrous Sulfate 325 mg (65 mg iron) tablet Discontinued 325 MG PO Q2D 15 March 05, 2024 11:00pm April 23, 2024 12:48pm Start: 07-26-2023 End: 03-03-2024 Ferrous Sulfate (Slow Fe) 13 7 mg (45 mg iron) tablet extended release Discontinued MG PO July 26, 2023 12:00am March 03, 2024 1:28pm Start: 07-26-2023 End: 03-03-2024 Start: 04-06-2023 take 1 tablet by kalie th three times weekly Slow Fe 142 (45 Fe) MG 1 tablet Orally Three times a Week for 30 day(s) Apr, Active take 1 tablet by kalie th in the morning ferrous sulfate 325 (65 FE) mg tablet Take 1 tablet (325 mg total) by mouth in the morning. Active take 1 tablet by kalie th once daily ferrous sulfate, 325 mg ferrous sulfate, tablet Take 1 tablet by mouth once daily. Active hydroCHLOROthiazide 25 mg / losartan potassium 100 mg oral tablet (14 sources) Thiazide Diuretic, Angiotensin 2 Receptor Lamont Start: 04-01-2018 End: 03-13-2019 take 1 tablet by mouth once daily Losartan-Hydrochlorothiazide 100-25 mg Tablet Discontinued 1 TAB PO Daily March 31, 2018 11:00pm March 13, 2019 7:00am Start: 04-01-2018 End: 03-13-2019 hydroCHLOROthiazide 12.5 mg / olmesartan medoxomil 40 mg oral tablet (14 sources) Thiazide Diuretic, Angiotensin 2 Receptor Lamont Start: 07-24-2019 End: 07-14-2020 take 1 tablet by mouth once daily Olmesartan-Hydrochlorothiazide (Benicar Hct) 40-12.5 mg Tablet Discontinued 1 TAB PO Daily July 24, 2019 12:00am July 14, 2020 11:39am Start: 07-24-2019 End: 07-14-2020 hydroCHLOROthiazide 12.5 mg / valsartan 160 mg oral tablet (20 sources) Thiazide Diuretic, Angiotensin 2 Receptor Lamont Start: 03-13-2024 End: 04-05-2024 take 1 tablet by mouth once daily Valsartan-Hydrochlorothiazide 80-12.5 mg tablet Discontinued 1 TAB PO Daily April 04, 2024 11:00pm April 05, 2024 2:28pm Start: 03-13-2024 Start: 07-12-2023 End: 03-13-2024 Start: 11-23-2022 End: 04-05-2024 take 1 tablet by mouth once daily Valsartan-Hydrochlorothiazide 160-12.5 mg tablet Discontinued 1 TAB PO Daily April 04, 2024 11:00pm April 05, 2024 2:27pm take 1 tablet by kalie th once daily Valsartan-hydroCHLOROthiazide 160-12.5 MG 1 tablet Orally Once a day Active take 1 tablet by kalie th every eight hours take 1 tablet by kalie th three times daily Valsartan-hydroCHLOROthiazide 160-12.5 MG 1 tablet Orally TID Active hydrOXYzine pamoate 25 mg oral capsule (2 sources) Antihistamine Start: 04-19-2024 End: 04-23-2024 take 1 capsule by mouth once daily at bedtime Hydroxyzine Pamoate (Vistaril) 25 mg capsule Discontinued 25 MG PO Daily at bedtime April 19, 2024 12:00am April 23, 2024 12:48pm ibuprofen 200 mg oral tablet (20 sources) Nonsteroidal Anti-inflammatory Drug Start: 07-26-2023 End: 03-03-2024 take 1 tablet by mouth three times daily at mealtime as needed Ibuprofen 200 mg tablet Discontinued 200 MG PO Three times daily July 26, 2023 12:00am March 03, 2024 1:28pm FreeTextSi tablet with food or milk as needed Orally Three times a day; Note: Source Status: Taking; Provider: Rory Eason ( ) take 1 tablet by kalie th three times daily at mealtime as needed Ibuprofen 200 MG 1 tablet with food or milk as needed Orally Three times a day Active Insulin Aspart U-100 (Novolo g Flexpen U-100 Insulin) 100 unit/mL (3 mL) Insulin Pen (3 sources) Start: 03-13-2024 End: 04-05-2024 Insulin Aspart U-100 (Novolo g Flexpen U-100 Insulin) 100 unit/mL (3 mL) Insulin Pen Discontinued 0 UNIT SUBCUT 3X/Day with meals and bedtime 0 March 12, 2024 11:00pm April 05, 2024 2:27pm Please contact the information source for Protocol details. Start: 03-13-2024 Insulin Aspart U-100 (Novolog Flexpen U-100 Insulin) 100 unit/mL (3 mL) Insulin Pen Active 0 UNIT SUBCUT 3X/Day with meals and bedtime March 13, 2024 12:00am 3 ml insulin glargine 100 unt/ml pen injector (11 sources) Insulin Analog Start: 03-03-2024 End: 03-08-2024 Insulin Glargine (Basaglar Kwikpen U-100 Insulin) 100 unit/mL (3 mL) insulin pen Discontinued 35 UNIT SUBCUT Every morning March 02, 2024 11:00pm March 08, 2024 5:26pm Start: 02-21-2024 inject 35 [IU] by monk bcutaneous injection at bedtime insulin glargine 100 units/mL SubQ Malaika 10 mL 35 unit(s), SubCutaneous, Bedtime, Refills(s) 0 Start Date: 02/21/24 Status: Ordered Insulin Lispro (Humalog Kwikpen Insulin) 100 unit/mL insulin pen (5 sources) Start: 03-03-2024 End: 03-08-2024 Insulin Lispro (Humalog Kwik pen Insulin) 100 unit/mL insulin pen Discontinued 1 sliding scale dose SUBCUT As Directed March 02, 2024 11:00pm March 08, 2024 5:26pm Start: 03-03-2024 End: 03-08-2024 Insulin Lispro (Humalog Kwik pen Insulin) 100 unit/mL insulin pen Discontinued 1 sliding scale dose SUBCUT As Directed March 03, 2024 12:00am March 08, 2024 6:26pm Start: 03-03-2024 Insulin Lispro (Humalog Kwikpen Insulin) 100 unit/mL insulin pen Active 1 sliding scale dose SUBCUT As Directed March 03, 2024 12:00am 200 actuat ipratropium bromide 0.017 mg/actuat metered dose inhaler (8 sources) Anticholinergic Start: 03-03-2024 End: 03-13-2024 Ipratropium [place] (Atrovent Hfa) 17 mcg/actuation HFA aerosol inhaler Discontinued 2 INH INHALATION Three times daily March 02, 2024 11:00pm March 13, 2024 12:06pm Start: 03-03-2024 End: 03-13-2024 Ketorolac (20 sources) Nonsteroidal Anti-inflammatory Drug, Cyclooxygenase Inhibitor Start: 01-15-2018 Toradol p er 15 mg Jan, 2 cc Start: 01-05-2018 Toradol per 15 mg Jan, 2 cc Start: 01-04-2018 Toradol per 15 mg Jan, 2 cc lansoprazole 30 mg delayed release oral capsule (14 sources) Proton Pump Inhibitor Start: 07-24-2019 End: 07-14-2020 take 1 capsule by mouth twice daily Lansoprazole (Prevacid) 30 mg Capsule,Delayed Release(Dr/Ec) Discontinued 30 MG PO Twice daily July 24, 2019 12:00am July 14, 2020 11:39am magnesium oxide 400 mg oral tablet (8 sources) Start: 03-13-2024 End: 04-04-2024 take 1 tablet by mouth once daily Magnesium Oxide 400 mg (241.3 mg magnesium) Tablet Discontinued 400 MG PO Daily 0 March 12, 2024 11:00pm April 04, 2024 4:16pm magnesium oxide (Mag-Ox) 400 MG tablet 1 tablet (400 mg) 3 times a day. Active Nutritional Supplements (Nut ra Pro High Protein) powder (5 sources) Start: 03-03-2024 End: 03-08-2024 Nutritional Supplements (Nut ra Pro High Protein) powder Discontinued 1 EACH PO Twice daily March 02, 2024 11:00pm March 08, 2024 5:26pm Start: 03-03-2024 End: 03-08-2024 Nutritional Supplements (Nut [...] 28, 2019 12:00am July 24, 2019 1:52pm oxyCODONE hydrochloride 10 mg oral tablet (12 sources) Opioid Agonist Start: 03-03-2024 End: 03-08-2024 take 1 tablet by mouth every six hours as needed for pain Oxycodone 10 mg tablet Discontinued 10 MG PO Every 6 hours as needed for pain March 02, 2024 11:00pm March 08, 2024 5:26pm Start: 02-21-[address] [facility] every six hours as needed for pain oxyCODONE 5 mg Tab 10 mg = 2 tab(s), Oral, q6hr, PRN Pain, # 18 tab(s), Refills(s) 0 Start Date: 02/21/24 Status: Ordered Start: 11-14-2023 End: 11-21-2023 take 1 tablet by mouth every six hours as needed for pain oxyCODONE (ROXICODONE) 5 mg immediate release tablet Indications: Post-op pain Take 1 tablet (5 mg total) by mouth every 6 (six) hours as needed for pain for up to 7 days. Max Daily Amount: 20 mg 10 tablet 11/14/2023 11/21/2023 Active polyethylene glycol 3350 61442 mg powder for oral solution (11 sources) Osmotic Laxative Start: 02-21-2024 End: 03-08-2024 Polyethylene Glycol 3350 (Clearlax) 17 gram/dose powder Discontinued 17 GM PO Daily March 02, 2024 11:00pm March 08, 2024 5:26pm 12 hr ranolazine 1000 mg extended release oral tablet (20 sources) Anti-anginal Start: 07-10-2014 End: 07-14-2020 take 1 tablet by mouth twice daily Ranolazine (Ranexa) 1,000 mg Tablet Extended Release 12 Hr Discontinued 1000 MG PO Twice daily March 31, 2018 11:00pm July 14, 2020 11:39am rimegepant 75 mg disintegrating oral tablet (18 sources) Start: 04-04-2024 End: 04-23-2024 take 1 tablet by mouth once Rimegepant (Nurtec Odt) 75 mg tablet,disintegrati ng Discontinued 75 MG PO Once April 03, 2024 11:00pm April 23, 2024 12:49pm Start: 02-12-2024 take 1 tablet by kalie th every twenty-four hours as needed for headache Nurtec ODT 75 mg oral tablet, disintegrating 75 mg = 1 tab(s), Oral, q24hr, PRN Migraine headache, Refills(s) 0 Start Date: 02/12/24 Status: Ordered Start: 07-12-2023 End: 03-13-2024 take 1 tablet by mouth once daily as needed for headache Rimegepant (Nurtec Odt) 75 mg tablet,disintegrating Discontinued 75 MG PO Daily as needed for migraine headache July 12, 2023 12:00am March 13, 2024 12:06pm Sennosides (Senna Laxative) 8.6 mg tablet (5 sources) Start: 03-03-2024 End: 03-08-2024 take 1 tablet by mouth twice daily Sennosides (Senna Laxative) 8.6 mg tablet Discontinued 8.6 MG PO Twice daily March 02, 2024 11:00pm March 08, 2024 5:26pm Start: 03-03-2024 End: 03-08-2024 take 1 tablet by mouth twice daily Sennosides (Senna Laxative) 8.6 mg tablet Discontinued 8.6 MG PO Twice daily March 03, 2024 12:00am March 08, 2024 6:26pm Start: 03-03-2024 take 1 tablet by kalie twice daily Sennosides (Senna Laxative) 8.6 mg tablet Active 8.6 MG PO Twice daily March 03, 2024 12:00am sulfamethoxazole 800 mg / trimethoprim 160 mg oral tablet (2 sources) Dihydrofolate Reductase Inhibitor Antibacterial, Sulfonamide Antimicrobial Start: 04-19-2024 End: 04-23-2024 take 1 tablet by mouth twice daily Sulfamethoxazole-Trimethoprim 800-160 mg tablet Discontinued 1 TAB PO Twice daily April 19, 2024 12:00am April 23, 2024 12:50pm tiZANidine 4 mg oral capsule (20 sources) Central alpha-2 Adrenergic Agonist Start: 03-08-2024 End: 03-13-2024 take 1 capsule by mouth once daily at bedtime Tizanidine 4 mg capsule Discontinued 4 MG PO Daily at bedtime March 07, 2024 11:00pm March 13, 2024 12:06pm Start: 07-12-2023 End: 03-03-2024 take 1 tablet by mouth once daily at bedtime Tizanidine 4 mg tablet Discontinued 4 MG PO Daily at bedtime July 12, 2023 12:00am March 03, 2024 1:29pm Start: 11-23-2022 take 1 capsule by mo [facility] three times daily as needed tiZANidine (ZANAFLEX) 4 mg capsule Take 1 capsule (4 mg total) by mouth 3 (three) times a day as needed. 11/23/2022 Active Start: 07-04-2022 take 1 tablet by kalie every twelve hours tiZANidine HCl 4 MG 1 tablet as needed Orally Twice a day Jun, Active take 1 capsule by mo ut once daily tiZANidine (Zanaflex) 4 mg capsule Take 1 capsule (4 mg) by mouth once daily. Active take 2 tablets by mo [facility] at bedtime tiZANidine HCl - 4 MG [...] mouth four times daily as needed Tramadol 50 mg tablet Discontinued 50 MG PO July 26, 2023 12:00am March 03, 2024 1:29pm FreeTextSi tablet as needed Orally QID; Note: Source Status: Taking; Refills: 0; Provider: Rory Guerra Start: 02-27-2023 take 1 tablet by kalie every six hours traMADol HCl 50 MG 1 tablet as needed Orally QID for 7 days Feb, Active Start: 03-13-2019 End: 07-24-2019 take 1 tablet by mouth four times daily Tramadol 50 mg Tablet Discontinued 50 MG PO Four times daily March 12, 2019 11:00pm July 24, 2019 1:52pm traZODone hydrochloride 50 mg oral tablet (14 sources) Serotonin Reuptake Inhibitor Start: 07-24-2019 End: 07-14-2020 take 1 tablet by mouth at bedtime Trazodone 50 mg tablet Discontinued 50 MG PO Bedtime July 24, 2019 12:00am July 14, 2020 11:40am Start: 07-24-2019 End: 07-14-2020 Triamcinolone (20 sources) Corticosteroid Start: 10-02-2013 KENALOG - 10 mg Sep, 1 cc varenicline 1 mg oral tablet (11 sources) Partial Cholinergic Nicotinic Agonist Start: 07-14-2020 End: 07-12-2023 take 1 tablet by mouth twice daily Varenicline (Chantix Continuing Month Box) 1 mg tablet Discontinued 1 MG PO Twice daily July 14, 2020 12:00am July 12, 2023 5:30pm Problems Active Problems Problem Classification Problem Date Documented Date Episodic/Chronic Abdominal pain (20 sources) Abdominal pain; Translations: [Unspecified abdominal pain] Episodic Acute and unspecified renal failure (20 sources) Renal failure syndrome; Translations: [Unspecified kidney failure] Chronic Acute myocardial infarction (20 sources) Myocardial infarction; Translations: [Acute myocardial infarction, unspecified] Onset: 10-30-2023 10-10-2014 Chronic Administrative/social admission (4 sources) Drug therapy finding; Translations: [Other specified counseling] 04-05-2024 Episodic Anxiety disorders (20 sources) Anxiety; Translations: [Anxiety disorder, unspecified] Onset: 07-27-2021 Resolved: 09-21-2021 Chronic Asthma (20 sources) Asthmatic bronchitis; Translations: [Unspecified asthma, uncomplicated] Onset: 10-30-2023 11-23-2022 Chronic Cardiac dysrhythmias (20 sources) Atrial fibrillation; Translations: [Unspecified atrial fibrillation] Onset: 03-04-2024 01-03-2024 Chronic Chronic kidney disease (20 sources) Chronic kidney disease stage 3; Translations: [Chronic kidney disease, stage 3 (moderate)] Onset: 10-19-2021 Resolved: 10-19-2021 Chronic Chronic kidney disease (6 sources) Chronic kidney disease; Translations: [Stage 3 chronic kidney disease, unspecified whether stage 3a or 3b CKD] Onset: 10-18-2021 Resolved: 10-19-2021 Chronic obstructive pulmonary disease and bronchiectasis (20 sources) Pulmonary emphysema; Translations: [Chronic obstructive lung disease] Onset: 10-06-2023 11-23-2022 Chronic Congestive heart failure; nonhypertensive (20 sources) Congestive heart failure; Translations: [Heart failure] Onset: 10-06-2023 10-10-2014 Chronic Coronary atherosclerosis and other heart disease (20 sources) Disorder of coronary artery; Translations: [Coronary atherosclerosis of unspecified type of vessel, [place] or graft] Onset: 07-27-2021 Resolved: 02-15-2022 Chronic Deficiency and other anemia (12 sources) Anemia; Translations: [Anemia, unspecified] Onset: 02-12-2024 03-03-2024 Episodic Diabetes mellitus with complications (20 sources) Peripheral vascular disorder due to diabetes mellitus; Translations: [Type 2 diabetes mellitus with other circulatory complications] Onset: 06-23-2021 Resolved: 11-24-2023 Chronic Diabetes mellitus without complication (20 sources) Diabetes mellitus; Translations: [Diabetes mellitus without mention of complication, type II or unspecified type, not stated as uncontrolled] Onset: 03-27-2023 04-02-2018 Chronic Diseases of white blood cells (1 source) Leukocytosis; Translations: [Elevated white blood cell count, unspecified] Onset: 02-20-2024 Chronic Disorders of lipid metabolism (20 sources) Hyperlipidemia; Translations: [Other and unspecified hyperlipidemia] Onset: 07-17-2015 Resolved: 02-15-2022 Chronic Esophageal disorders (20 sources) Gastroesophageal reflux disease; Translations: [Gastro-esophageal reflux disease without esophagitis] Onset: 07-27-2021 Resolved: 02-15-2022 Chronic Essential hypertension (20 sources) Hypertensive disorder; Translations: [Essential (primary) hypertension] Onset: 11-05-2013 Resolved: 01-01-2024 04-02-2018 Chronic Genitourinary symptoms and ill-defined conditions (20 sources) Retention of urine; Translations: [Retention of urine, unspecified] Onset: 11-23-2022 Episodic Gout and other crystal arthropathies (20 sources) Gout; Translations: [Gout, unspecified] Onset: 02-15-2022 Resolved: 02-15-2022 Chronic Headache; including migraine (6 sources) Migraine; Translations: [Migraine, unspecified, not intractable, without status migrainosus] Onset: 06-14-2023 12-17-2023 Chronic Headache; including migraine (20 sources) Headache; Translations: [Headache] Onset: 10-30-2023 11-23-2022 Episodic Heart valve disorders (20 sources) Heart murmur; Translations: [Cardiac murmur, unspecified] Onset: 10-30-2023 11-23-2022 Episodic Hyperplasia of prostate (20 sources) Benign prostatic hypertrophy with outflow obstruction; Translations: [Benign prostatic hyperplasia with lower urinary tract symptoms] Onset: 11-23-2022 Chronic Hypertension with complications and secondary hypertension (20 sources) Hypertensive renal disease; Translations: [Hypertensive chronic kidney disease with stage 1 through stage 4 chronic kidney disease, or unspecified chronic kidney disease] Onset: 09-21-2021 Resolved: 02-15-2022 Chronic Infective arthritis and osteomyelitis (except that caused by tuberculosis or sexually transmitted disease) (20 sources) Acute osteomyelitis of right foot; Translations: [Other acute osteomyelitis, right ankle and foot] Onset: 10-06-2023 10-06-2023 Chronic Inflammatory conditions of male genital organs (20 sources) Orchitis; Translations: [Orchitis] Onset: 11-23-2022 Episodic Nausea and vomiting (20 sources) Nausea and vomiting; Translations: [Nausea with vomiting, unspecified] Episodic Nonspecific chest pain (20 sources) Chest pain; Translations: [Chest pain, unspecified] Onset: 11-10-2023 04-01-2018 Episodic Nutritional deficiencies (20 sources) Vitamin D deficiency; Translations: [Vitamin D deficiency, unspecified] Onset: 02-15-2022 Resolved: 02-15-2022 Chronic Osteoarthritis (20 sources) Arthritis; Translations: [Unspecified osteoarthritis, unspecified site] Onset: 10-30-2023 01-16-2013 Chronic Other acquired deformities (20 sources) Contracture of joint of hand; Translations: [Contracture, 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 Other aftercare (20 sources) Long-term current use of insulin; 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 Simon Hernández Vascular Other bone disease and musculoskeletal deformities (2 sources) Acquired absence of right leg below knee; Translations: [Below knee amputation status] 04-04-2024 Chronic Other bone disease and musculoskeletal deformities (1 source) Amputated right lower limb below knee; Translations: [Acquired absence of right leg below knee] Onset: 02-12-2024 Chronic Other circulatory disease (1 source) Other specified symptoms and signs involving the circulatory and respiratory systems; Translations: [Other specified symptoms and signs involving the circulatory and respiratory systems] Onset: 10-18-2023 Episodic Other connective tissue disease (20 sources) Pain in limb; Translations: [Pain in leg, unspecified] Episodic Other connective tissue disease (5 sources) Pain in right leg Onset: 10-08-2021 Resolved: 02-15-2022 Episodic Other connective tissue disease (17 sources) 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 Other connective tissue disease (1 source) Pain in left arm Episodic Other connective tissue disease (20 sources) Fibromyalgia; Translations: [Fibromyalgia] Onset: 10-30-2023 01-03-2024 Episodic Other diseases of bladder and urethra (6 sources) Mass of urinary bladder; Translations: [Other specified disorders of bladder] Chronic Other diseases of bladder and urethra (1 source) Other specified disorders of bladder Chronic Other diseases of kidney and ureters (1 source) Urinary tract obstruction; Translations: [Other obstructive and reflux uropathy] Onset: 05-27-2024 Episodic Other disorders of stomach and duodenum (2 sources) Disorder of stomach; Translations: [Other diseases of stomach and duodenum] 04-05-2024 Episodic Other disorders of stomach and duodenum (2 sources) Other diseases of stomach and duodenum; Translations: [Other specified disorders of stomach and duodenum] 04-04-2024 Episodic Other endocrine disorders (20 sources) Testicular hypofunction; Translations: [Testicular hypofunction] Chronic Other hereditary and degenerative nervous system conditions (20 sources) Restless legs; Translations: [Restless legs syndrome] Onset: 10-06-2023 08-16-2013 Chronic Other hereditary and degenerative nervous system conditions (17 sources) Restless legs syndrome; Translations: [Restless legs syndrome (RLS)] Onset: 07-27-2021 Resolved: 02-15-2022 Chronic Other injuries and conditions due to external causes (6 sources) Hypothermia; Translations: [Hypothermia, initial encounter] 03-08-2024 Episodic Other injuries and conditions due to external causes (4 sources) Hypothermia, initial encounter; Translations: [Hypothermia] 03-08-2024 Episodic Other lower respiratory disease (20 sources) Solitary nodule of lung; Translations: [Solitary pulmonary nodule] Episodic Other male genital disorders (20 sources) Impotence of organic origin; Translations: [Male erectile dysfunction, unspecified] Chronic Other male genital disorders (7 sources) Male erectile dysfunction, unspecified; Translations: [Erectile dysfunction] Onset: 07-27-2021 Resolved: 02-15-2022 Chronic Other nervous system disorders (20 sources) [...] lower limbs] Chronic Other nervous system disorders (5 sources) Carpal tunnel syndrome of right wrist; Translations: [Carpal tunnel syndrome, right upper limb] Onset: 10-02-2020 12-17-2023 Chronic Other nervous system disorders (5 sources) Polyneuropathy; Translations: [Polyneuropathy, unspecified] Onset: 10-27-2020 12-17-2023 Chronic Other nervous system disorders (1 source) Other chronic pain; Translations: [Other chronic pain] Onset: 03-04-2024 Chronic Other nervous system disorders (19 sources) Carpal tunnel syndrome; Translations: [Carpal tunnel syndrome, unspecified upper limb] Onset: 10-06-2023 10-06-2023 Chronic Other nervous system disorders (20 sources) Skin sensation disturbance; Translations: [Paresthesia of skin] Episodic Other nervous system disorders (1 source) Other acute postprocedural pain; Translations: [Other acute postprocedural pain] Onset: 11-07-2023 Episodic Other nervous system disorders (2 sources) Tremor; Translations: [Tremor, unspecified] 04-19-2024 Episodic Other nutritional; endocrine; and metabolic disorders [...] Body mass index (BMI) 34.0-34.9, adult Onset: 10-19-2021 Resolved: 10-19-2021 Chronic Other nutritional; endocrine; and metabolic disorders (5 sources) Hyperbilirubinemia; Translations: [Other disorders of bilirubin metabolism] 03-10-2024 Chronic Other nutritional; endocrine; and metabolic disorders (4 sources) Other disorders of bilirubin metabolism; Translations: [Jaundice, unspecified, not of ] Onset: 03-08-2024 03-13-2024 Chronic Other nutritional; endocrine; and metabolic disorders (6 sources) Overweight in adulthood with body mass index of 25 or more but less than 30; Translations: [Overweight] Episodic Other screening for suspected conditions (not mental disorders or infectious disease) (8 sources) Imaging result abnormal; Translations: [Abnormal findings on diagnostic imaging of other specified body structures] 03-21-2024 Chronic Other screening for suspected conditions (not mental disorders or infectious disease) (20 sources) Patient encounter status; Translations: [Encounter for screening for malignant neoplasm of colon] Onset: 07-27-2021 Resolved: 02-15-2022 Episodic Peripheral and visceral atherosclerosis (20 sources) Intermittent claudication; Translations: [Peripheral vascular disease, unspecified] Onset: 10-30-2023 04-05-2024 Chronic Residual codes; unclassified (17 sources) Sleep apnea; Translations: [Sleep apnea, unspecified] Onset: 08-04-2014 10-30-2023 Chronic Residual codes; unclassified (20 sources) Edema of lower extremity; Translations: [Localized edema] Onset: 11-10-2023 07-12-2023 Episodic Residual codes; unclassified (20 sources) Peripheral edema; Translations: [Edema, unspecified] Episodic Residual codes; unclassified (20 sources) Amnesia; Translations: [Other amnesia] Episodic Residual codes; unclassified (20 sources) Difficulty sleeping ; Translations: [Sleep disorder, unspecified] Episodic Residual codes; unclassified (20 sources) Insomnia; Translations: [Insomnia, unspecified] Episodic Residual codes; unclassified (14 sources) FH: premature coronary heart disease; Translations: [Family history of ischemic heart disease and other diseases of the circulatory system] 04-01-2018 Episodic Comment on above: Reports mother had q uadruple bypass at age of 45 Residual codes; unclassified (18 sources) Tobacco user; Translations: [Tobacco use] Onset: 02-15-2024 01-16-2013 Episodic Comment on above: Added secondary to s ocial history documentation. Residual codes; unclassified (2 sources) Other specified postprocedural states; Translations: [Other specified postprocedural states] Onset: 11-07-2023 Episodic Residual codes; unclassified (1 source) Pain, unspecified; Translations: [Pain, unspecified] Onset: 03-12-2024 Episodic Residual codes; unclassified (10 sources) Altered mental status; Translations: [Altered mental status, unspecified] Onset: 03-15-2024 03-08-2024 Episodic Spondylosis; intervertebral disc disorders; other back problems (20 sources) Degeneration of lumbar intervertebral disc; Translations: [Other intervertebral disc degeneration, lumbar region] Chronic Substance-related disorders (20 sources) Smoker; Translations: [Nicotine dependence, unspecified, uncomplicated] Onset: 10-06-2023 07-10-2014 Chronic Comment on above: Added secondary to d ocumentation in Social History. 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] Onset: 11-07-2023 Unclassified (1 source) New Patient Onset: 10-18-2023 Unclassified (1 source) 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 Onset: 11-30-2023 Unclassified (2 sources) Patient encounter status 05-27-2024 Urinary tract infections (1 source) Urinary tract infection, site not specified Episodic Past or Other Problems Problem Classification Problem Date Documented Da te Episodic/Chronic Cardiac dysrhythmias (8 sources) Palpitations; Translations: [Palpitations] Onset: 03-27-2023 03-27-2023 Episodic Chronic ulcer of skin (18 sources) Pressure ulcer of right ankle, stage 3; Translations: [Pressure ulcer, ankle] Onset: 11-08-2023 Resolved: 02-28-2024 11-08-2023 Chronic Complications of surgical procedures or medical care (20 sources) Disorder of amputation stump; Translations: [Other complications of amputation stump] Onset: 11-08-2023 Resolved: 02-28-2024 11-08-2023 Episodic Coronary atherosclerosis and other heart disease (2 sources) Coronary angioplasty status; Translations: [Coronary angioplasty status] Onset: 03-27-2023 Episodic Deficiency and other anemia (14 sources) Anemia, unspecified; Translations: [Anemia, unspecified] Onset: 03-04-2024 Episodic Gangrene (20 sources) 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; Translations: [Atherosclerosis of [place] arteries of extremities with gangrene, right leg] Onset: 10-18-2023 Resolved: 02-28-2024 Chronic Headache; including migraine (5 sources) Headache; including migraine Mood disorders (15 sources) Mood disorders Onset: 11-07-2023 11-07-2023 Neoplasms of unspecified nature or uncertain behavior (1 source) Neoplasm of uncertain behavior of skin Onset: 02-15-2022 Resolved: 02-15-2022 Episodic Other aftercare (11 sources) Follow-up orthopedic assessment; Translations: [Encounter for orthopedic aftercare following surgical amputation] Onset: 02-28-2024 02-28-2024 Episodic Other circulatory disease (5 sources) Low blood pressure; Translations: [Hypotension, unspecified] Onset: 01-01-2024 01-01-2024 Episodic Other circulatory disease (1 source) Poor peripheral circulation; Translations: [Other specified symptoms and signs involving the circulatory and respiratory systems] 10-18-2023 Episodic Other connective tissue disease (1 source) Pain in left leg Onset: 10-08-2021 Resolved: 10-08-2021 Episodic Other connective tissue disease (1 source) Other specified soft tissue disorders; Translations: [Other specified soft tissue disorders] Onset: 07-12-2023 Episodic Other connective tissue disease (19 sources) Muscle weakness; Translations: [Muscle weakness (generalized)] Onset: 10-30-2023 10-30-2023 Episodic Other connective tissue disease (9 sources) Spasm; Translations: [Other muscle spasm] Onset: 02-28-2024 02-28-2024 Episodic Other gastrointestinal disorders (20 sources) Diarrhea; Translations: [Diarrhea, unspecified] 10-10-2023 Episodic Other hematologic conditions (1 source) Other abnormality of red blood cells Onset: 02-15-2022 Resolved: 02-15-2022 Episodic Other lower respiratory disease (4 sources) Other nonspecific abnormal finding of lung field; Translations: [OTH NONSPECIFIC ABN FIND LNG FIELD] Onset: 10-12-2021 Episodic Other lower respiratory disease (4 sources) Shortness of breath; Translations: [Shortness of breath] Onset: 01-01-2024 Episodic Other lower respiratory disease (2 sources) Dyspnea; Translations: [Shortness of breath] Onset: 01-01-2024 01-17-2024 Episodic Other male genital disorders (17 sources) Disorder of male genital organ; Translations: [Hydrocele, unspecified] Onset: 10-30-2023 10-30-2023 Episodic Other nervous system disorders (5 sources) Pain in limb - multiple; Translations: [Paresthesia of skin] Onset: 09-22-2020 12-17-2023 Episodic Other nervous system disorders (5 sources) Paresthesia of lower extremity; Translations: [Paresthesia of skin] Onset: 09-22-2020 12-17-2023 Episodic Other nervous system disorders (20 sources) Finding related to ability to move; Translations: [Other abnormalities of gait and mobility] Onset: 10-30-2023 10-30-2023 Episodic Other non-traumatic joint disorders (1 source) Pain in right hip Onset: 07-27-2021 Resolved: 07-27-2021 Episodic Other nutritional; endocrine; and metabolic disorders (1 source) Abnormal weight loss Onset: 07-27-2021 Resolved: 07-27-2021 Episodic Residual codes; unclassified (1 source) Insomnia, unspecified Onset: 07-27-2021 Resolved: 07-27-2021 Episodic Residual codes; unclassified (9 sources) Altered mental status, unspecified; Translations: [Altered mental status] Onset: 03-08-2024 03-08-2024 Episodic Residual codes; unclassified (1 source) Disorientated; Translations: [Disorientation, unspecified] 03-15-2024 Episodic Screening and history of mental health and substance abuse codes (11 sources) Ex-smoker; Translations: [Personal history of tobacco use] Onset: 10-24-2023 10-24-2023 Episodic Comment on above: qauit 07/2020; Septicemia (except in labor) (20 sources) Sepsis, unspecified organism; Translations: [Bacterial sepsis] Onset: 10-06-2023 Resolved: 10-10-2023 Episodic Skin and subcutaneous tissue infections (20 sources) Abscess of right foot; Translations: [Cutaneous abscess of right foot] Onset: 10-06-2023 Resolved: 02-28-2024 10-06-2023 Episodic Spondylosis; intervertebral disc disorders; other back problems (20 sources) Neck pain; Translations: [Cervicalgia] Onset: 10-30-2023 01-03-2024 Episodic Syncope (20 sources) Syncope; Translations: [Syncope and collapse] Onset: 03-04-2024 03-03-2024 Episodic Unclassified (1 source) History of amputation of right leg through tibia and fibula 03-21-2024 Results Test Name Value Interpretation Reference Range Facility Reminderson 07-05-2024 Reminders Reminders From: Clari Valverde To: [facility] - Administrative; Sent: 07/05/2024 09:08:37 EST Show up: 02/02/2025 10:08:00 EDT Subject: 1 yr f/u w/psa Due Date/Time: 05/27/2025 09:08:00 EST Reminder/Recall Pt needs scheduled for 1yr f/u w/psa w/PRW in May 2025. Normal [facility] PSA Totalon 05-28-2024 Prostate specific Ag [Mass/Vol] 1.0 ng/mL Normal 0.1-3.5 [facility] Comment on above: Result Comment: The concentration of PSA determined by different manufacturers can vary due to differences in assay methods and reagent specificity. Values obtained from different assay methods cannot be used interchangeably. The methodology used for this result was chemiluminescence using [employer]'s Access [employer] PSA reagent. Performed By: #### 1 [id number] #### [facility] [address] [place] [address] Ambulatory Visit Summaryon 1 07-28-2023 Ambulatory Visit Summary Ambulatory Visit Summary MYRA PICKARD SR :1965 Visit Date:05/27/2024 Ambulatory Visit Instructions Your Diagnosis BPH with obstruction/lower urinary tract symptoms Screening PSA (prostate specific antigen) Orchitis Your Care Team Attending Physician - SOLEDAD HERRERA, Yeyo Blum Primary Care Physician - TERESA LYNCH DO This Is Your Medications List tamsulosin (tamsulosin 0.4 mg Cap) Contact prescribing physician if questions or concerns Ensure Tenzin (Tenzin packet) albuterol (ProAir HFA) [...] mg Tab) sitagliptin (Januvia 100 mg Tab) tiotropium (Spiriva 18 mcg Cap) Procedures Performed [facility]KA - Below knee amputation (02/12/2024), Transmetatarsal amputation of foot (01/08/2024), TURP - Transurethral resection of prostate (04/13/2023), Cystoscopy (02/14/2023), Angiogram, Appendectomy, Bilateral Carpal Tunnel Surgery, Bilateral Eye Surgery, cardiac stents, Cataract extraction and insertion of intraocular lens, Colonoscopy, Procedure on back. Discharge Vitals Temperature (Temporal Artery) 37 ???C Heart Rate (Peripheral) 70 Respiratory Rate 16 Blood Pressure 107/69 Height 182 cm Height 72 in Weight 88.5 kg Weight 195.109 lb BMI 26.72 What to do next You Need to Schedule the Following Appointments Follow Up with SOLEDAD HERRERA, ROSALIA Garcia When: Where: [facility] [address], [place] [phone] Medications What How Much When Instructions Unchanged tamsulosin (tamsulosin 0.4 mg Cap) 1 Capsules By Mouth 2 times a day Pickup at [facility]/pharmacy #[id number] Unchanged albuterol (ProAir HFA) Inhalation Every 6 hours as needed for Shortness of breath or wheezing Contact prescribing physician if questions or concerns Unchanged amitriptyline (amitriptyline 100 mg oral tablet) 1 Tablets By Mouth Once a day (at bedtime) Contact prescribing physician if questions or concerns Unchanged aspirin (aspirin 81 mg Oral EC Tab) 1 Tablets By Mouth Every day Contact prescribing physician if questions or concerns Unchanged atorvastatin (Lipitor 80 mg Tab) 1 Tablets By Mouth Every day Contact prescribing physician if questions or concerns Unchanged clopidogrel (Plavix 75 mg Tab) 1 Tablets By Mouth Every day Contact prescribing physician if questions or concerns Unchanged dulaglutide (Trulicity Pen 0.75 mg/ 0.5 mL subcutaneous solution) 0.75 Milligram Subcutaneous Every week Contact prescribing physician if questions or concerns Unchanged empagliflozin (Jardiance 10 mg oral tablet) 1 Tablets By Mouth Once a day (in the morning) Contact prescribing physician if questions or concerns Unchanged Ensure 237 Milliliter By Mouth Twice a day (with meals) Contact prescribing physician if questions or concerns Unchanged furosemide (furosemide 40 mg Tab) 1 Tablets By Mouth Every day Contact prescribing physician if questions or concerns Unchanged glimepiride (Amaryl 2 mg Tab) 1 Tablets By Mouth 2 times a day Contact prescribing physician if questions or concerns Unchanged hydrochlorothiazide-valsa rtan (hydrochlorothiazide-vals jorge 12.5 mg-160 mg Tab) 1 Tablets By Mouth Every day Contact prescribing physician if questions or concerns Unchanged insulin glargine (insulin glargine 100 units/ mL SubQ Malaika 10 mL) 35 Units Subcutaneous At bedtime Contact prescribing physician if questions or concerns Unchanged insulin lispro 0-10 Unit(s) Subcutaneous Four times a day (before meals and at bedtime) Contact prescribing physician if questions or concerns Unchanged isosorbide mononitrate (isosorbide mononitrate 30 mg ER Tab) 1 Tablets By Mouth Once a day (in the morning) Contact prescribing physician if questions or concerns Unchanged Tenzin (Tenzin packet) By Mouth 2 times a day Contact prescribing physician if questions or concerns Unchanged metformin (metformin 1000 mg Tab) 1 Tablets By Mouth 2 times a day Contact prescribing physician if questions or concerns Unchanged (more content not included)... Normal [facility] Urology Office/Clinic Noteon 05-27-2024 Urology Office/Clinic Note Urology Office/Clinic Note Chief Complaint 1 year f/u to TURP HPI Staff 1 year f/u Dx: BPH with urinary obstruction/ LUTS (TURP 04/13/23), urinary retention, gross hematuria and orchitis Dysuria: denies Incomplete bladder emptying: denies Hematuria: denies Frequency: 3-4x a day Urgency: denies Nocturia: 1-2x Stream: no straining but does have some intermittency Leaking: denies Post void dripping: yes Wearing pads/ Depends: denies but has to change clothes 2-3x daily Urge incontinence: denies Stress incontinence: denies Incontinence without Sensory Awareness: denies Abdominal pain: denies Flank pain: denies Sexual complaints: denies History of Present Illness Tests reviewed: reviewed UA, PSA I have reviewed the previous health record information and history for this patient from Dr. Rowe. I have reviewed and verified the staff HPI to be accurate for this encounter. Review of Systems PHQ Score Initial [...] HPI. Physical Exam Vitals & Measurements T: 37 ???C(Temporal Artery) HR: 70(Peripheral) RR: 16 BP: 107/69 HT: 72 in HT: 182 cm WT: 88.5 kg WT: 195.109 lb BMI: 26.72 General Appearance: alert, no distress, well nourished, well developed male. Assessment/Plan 1. BPH with obstruction/lower urinary tract symptoms (N40.1: Benign prostatic hyperplasia with lower urinary tract symptoms) S/p cysto and UDS 02/14/23 - prostate is obstructed. bladder is abnormal, moderate (2) trabeculation, cath cystitis noted on the floor. No b.t. High-grade trabeculation. Small open mouth diverticuli. Urodynamics shows a low flow, incomplete emptying and moderate pressures. S/p TURP 04/13/23. Had restarted CIC after catheter removal PO TURP. Prior PVRs ranged from 534-787 ml when pt did CIC prior to TURP. PVR 06/02/23 - 31cc. Has not had to CIC over the past year. Voids 3-4x/day and 2x/night. Taking Tamsulosin 0.4mg bid. Denies any bother with urination. -Cont Tamsulosin bid. Refills sent to [facility]. 2. Screening PSA (prostate specific antigen) (Z12.5: Encounter for screening for malignant neoplasm of prostate) PSA 01/11/22 - 2.44 No fam hx of prostate cancer. -PSA to be drawn IO. Will call pt with results. 3. Orchitis (N45.2: Orchitis) Tx'd w/ Doxycycline 100 mg bid x 3 weeks in November 2022. Follow-up With When Contact Information SOLEDAD HERRERA, Yeyo Blum, URL [facility] [address] [place] [address] [phone] Additional Instructions: 1 yr Patient Education Benign Prostatic Hyperplasia Sharri Morrow, personally scribed for Dr. Rowe on 05/27/2024 16:01:18. . Documentation recorded by the Sharri negron, accurately reflects the services(s) I performed and decisions made by me. Authenticated by Dr. Rowe on 05/27/2024 16:02:21. Problem List/Past Medical History Ongoing Arthritis Asthma BPH with obstruction/lower urinary tract symptoms COPD type A Fibromyalgia Gross hematuria Head ache Heart attack Heart disease Heart murmur Hyperlipidemia Orchitis Restless leg Screening PSA (prostate specific antigen) Smoker Urinary retention Historical CHF (congestive heart failure) GERD [Gastroesophageal reflux disease] HTN [Hypertension] ID (myocardial infarction) NIDDM Procedure/Surgical History BKA - Below knee amputation (02/12/2024), [...] Tab, 40 mg= 1 tab(s), Oral, Daily hydrochlorothiazide-valsa rtan 12.5 mg-160 mg Tab, 1 tab(s), Oral, [...] Tab, 80 mg= 1 tab(s), Oral, Daily me (more content not included)... Normal [facility] Comment on above: Result Comment: Elec tronically Signed By: Yeyo ROWE MD\.br\Date and Time Signed: 05/27/24 16:02 EST\.br\Electronically Co-Signed By: Sharri Mora\.br\Date and Time Co-Signed: 05/27/24 16:01 EST Glucose Glucometer (dC) [M ass/Vol]Ordered By: Mike Burleson on 04-23-2024 Glucose [Mass/Vol] Capillary blood gluc ose measurement by glucometer (mass/volume) [facility] Comment on above: Random Glucose Refer ence Range is dependent on time and content of last meal. Glucose of more than 200 mg/dL in a nonstressed, ambulatory subject supports the diagnosis of Diabetes Mellitus. Glucose Poct Glucometerson 1 06-23-2023 Commemt1 Glu2: Cleaned Meter Normal [facility] Comment on above: Result Comment: PERF ORMED BY: [place] [address] PATHOLOGIST SERVICE DELIVERY ANALYST MIKE LINN M.D. Performed By: #### S CAN CBC, MG, PHOS, CMP #### [address] Glucose [Mass/Vol] 212 mg/dL Normal [facility] Comment on above: Result Comment: [facility] [place][note 2] Glucose Reference Range is dependent on time and content of last meal. Glucose of more than 200 mg/dL in a nonstressed, ambulatory subject supports the diagnosis of Diabetes Mellitus. Performed By: #### S CAN CBC, MG, PHOS, CMP #### [address] 04-23-2024 L ----- Specimen: [id number] Received: 04/23/24 Status: COLTON Nath Num: [id number] Spec Type: Surgical Subm Dr: Mike Burleson MD Tissues: A GASTRIC FOR HP (GASTRIC BX R/O MALIGNANCY AN) Procedures: HE/2, Gross/Micro L4, H PYLORI Age/ Patient Sex Location Account Attending Physician Myra Pickard 58/M [id number] Mike Burleson MD SPEC NUM: [id number] RECD: 04/23/24 STATUS: COLTON NATH NUM: [id number] SHAKIRA: 04/23/24 [facility] DR: Mike Burleson MD ENTERED: 04/23/24 [facility] DR: HORTENSIA TYPE: Surgical DEPT: S ENTERED BY: [id number] RECV BY: [id number] ORDERED: HE/2, Gross/Micro L4, H PYLORI ORDERED: HE/2, Gross/Micro L4, H PYLORI Pathological Diagnosis Gastric Biopsy: Chronic Inactive Gastritis. Immunostain is Negative For H. Pylori Organisms. Clinical Information Iron-deficiency anemia, rule out malignancy and H. pylori Gross Description Part A is received in formalin labeled with the patients name, date of , and gastric BX is a meyers-guillory, focally erythematous, friable, 0.5 cm in greatest dimension tissue bit. The specimen is entirely submitted in a single cassette. (1, ns, [id number]) CPT Codes [id number] Specimen: [id number] Received: 04/23/24 Status: COLTON Nath Num: [id number] Spec Type: Surgical Subm Dr: Mike Burleson MD Tissues: A GASTRIC FOR HP (GASTRIC BX R/O MALIGNANCY AN) Procedures: HE/2, Gross/Micro L4, H PYLORI Patient: Myra Pickard SR [id number] (Continued) Signed (signature on file) Mike Linn MD 04/24/24 [id number] Normal [facility] No Panel InformationOrdered By: Mike Burleson on 04-23-2024 Bedside Glucose Comment Glu2: cleaned meter [facility] HbA1c HPLC (Bld) [Mass fract ion]on 04-04-2024 HbA1c (Bld) [Mass fraction] Hemoglobin A1c/Hemoglobin.total in Blood by HPLC [facility] Alanine aminotransferase [En zymatic activity/volume] in Serum or PlasmaOrdered By: João Powell on 03-13-2024 ALT [Catalytic activity/Vol] 38 U/L Normal [facility] Comment on above: Performed By: #### S CAN CBC, MG, PHOS, CMP #### [facility] [address] ALT [Catalytic activity/Vol] Alanine aminotransferase [Enzymatic activity/volume] in Serum or Plasma [facility] Albumin [Mass/volume] in Ser um or Plasma by Bromocresol green (BCG) dye binding methoOrdered By: João Powell on 03-13-2024 Albumin BCG dye [Mass/Vol] 3.6 g/dL 3.5-5.[address] [facility] Albumin BCG dye [Mass/Vol] Albumin [Mass/volume] in Serum or Plasma by Bromocresol green (BCG) dye binding metho 3.5-5.[address] [facility] Alkaline phosphatase [Enzyma tic activity/volume] in Serum or PlasmaOrdered By: João Powell on 03-13-2024 ALP [Catalytic activity/Vol] 313 U/L High [address] [place] [address] Comment on above: Performed By: #### S CAN CBC, MG, PHOS, CMP #### [facility] [address] [place] [address] ALP [Catalytic activity/Vol] Alkaline phosphatase [Enzymatic activity/volume] in Serum or Plasma High [address] [place] [address] Aspartate aminotransferase [ Enzymatic activity/volume] in Serum or PlasmaOrdered By: João Powell on 03-13-2024 AST [Catalytic activity/Vol] 28 U/L Normal [facility] Comment on above: Performed By: #### S CAN CBC, MG, PHOS, CMP #### [facility] [address] [place] [address] AST [Catalytic activity/Vol] Aspartate aminotransferase [Enzymatic activity/volume] in Serum or Plasma [facility] Automated basophil %Ordered By: João Powell on 03-13-2024 Basophils/100 WBC (Bld) 1.2 % Normal . [facility] Comment on above: Performed By: #### S CAN CBC, MG, PHOS, CMP #### [facility] [address] [place] [address] Automated basophil countOrde red By: João Powell on 03-13-2024 Basophils (Bld) [#/Vol] 0.1 10*3/uL Normal 0.0-0.[address] [facility] Comment on above: Result Comment: PERF ORMED BY: [place] [address] PATHOLOGIST SERVICE DELIVERY ANALYST CLIFFORD LOBATO M.D. Performed By: #### S CAN CBC, MG, PHOS, CMP #### [address] Automated blood monocyte cou ntOrdered By: João Powell on 03-13-2024 Monocytes (Bld) [#/Vol] 0.9 10*3/uL High 0.0-0.[address] [facility] Comment on above: Performed By: #### S CAN CBC, MG, PHOS, CMP #### [address] Automated eosinophil %Ordere d By: João Powell on 03-13-2024 Eosinophils/100 WBC (Bld) 3.0 % Normal . [facility] Comment on above: Performed By: #### S CAN CBC, MG, PHOS, CMP #### [facility] [address] [place] [address] Automated eosinophil countOr dered By: João Powell on 03-13-2024 Eosinophils (Bld) [#/Vol] 0.2 10*3/uL Normal 0.0-0.[address] [facility] Comment on above: Performed By: #### S CAN CBC, MG, PHOS, CMP #### [address] Automated monocyte %Ordered By: João Powell on 03-13-2024 Monocytes/100 WBC (Bld) 14.4 % Normal . [facility] Comment on above: Performed By: #### S CAN CBC, MG, PHOS, CMP #### [facility] [address] Automated neutrophil %Ordere d By: João Powell on 03-13-2024 Neutrophils/100 WBC (Bld) 66.7 % Normal . [facility] Comment on above: Performed By: #### S CAN CBC, MG, PHOS, CMP #### [facility] [address] Basophils Auto (Bld) [#/Vol] Ordered By: João Powell on 03-13-2024 Basophils (Bld) [#/Vol] Automated basophil count 0.0-0.2 [facility] Basophils/100 WBC Auto (Bld) Ordered By: João Powell on 03-13-2024 Basophils/100 WBC (Bld) Automated basophil % . [facility] Bilirubin.total [Mass/volume ] in Serum or PlasmaOrdered By: João Powell on 03-13-2024 Bilirubin [Mass/Vol] 0.9 mg/dL Normal 0.3-1.0 [facility] Comment on above: Performed By: #### S CAN CBC, MG, PHOS, CMP #### [facility] [address] Bilirubin [Mass/Vol] Bilirubin.total [Mass/volume] in Serum or Plasma 0.3-1.[address] [facility] Calcium [Mass/volume] in Ser um or PlasmaOrdered By: João Powell on 03-13-2024 Calcium [Mass/Vol] 9.1 mg/dL Normal 8.6-10.3 [facility] Comment on above: Performed By: #### S CAN CBC, MG, PHOS, CMP #### [facility] [address] Calcium [Mass/Vol] Calcium [Mass/volume ] in Serum or Plasma 8.6-10.[address] [facility] Capillary blood glucose ashley urement by glucometer (mass/volume)Ordered By: Remberto Ervin on 03-13-2024 Glucose [Mass/Vol] 155 mg/dL Normal [facility] Comment on above: Random Glucose Refer ence Range is dependent on time and content of last meal. Glucose of more than 200 mg/dL in a nonstressed, ambulatory subject supports the diagnosis of Diabetes Mellitus. Result Comment: [place] Glucose Reference Range is dependent on time and content of last meal. Glucose of more than 200 mg/dL in a nonstressed, ambulatory subject supports the diagnosis of Diabetes Mellitus. PERFORMED BY: [place] [address] PATHOLOGIST SERVICE DELIVERY ANALYST CLIFFORD LOBATO M.D. Performed By: #### G LULS #### Point of Care testing , Carbon dioxide, total [Moles /volume] in Serum or PlasmaOrdered By: João Powell on 03-13-2024 CO2 [Moles/Vol] 23.9 mmol/L Normal 21.0-31.0 [facility] Comment on above: Performed By: #### S CAN CBC, MG, PHOS, CMP #### [facility] [address] [place] [address] CO2 [Moles/Vol] Carbon dioxide, tota l [Moles/volume] in Serum or Plasma 21.0-31.[address] [facility] Chloride [Moles/volume] in S ilia or PlasmaOrdered By: João Powell on 03-13-2024 Chloride [Moles/Vol] 101 mmol/L Normal 98-107 [facility] Comment on above: Performed By: #### S CAN CBC, MG, PHOS, CMP #### [facility] [address] [place] [address] Chloride [Moles/Vol] Chloride [Moles/vol ume] in Serum or Plasma 98-[address] [facility] Complete Blood Count Auto Di ffon 03-13-2024 Mean Corpuscular HGB Conc 31.7 g/dL Low 32.5-35.6 [facility] Comment on above: Performed By: #### S CAN CBC, MG, PHOS, CMP #### [facility] [address] [place] [address] NRBC% 0.1 /100{WBC} Normal 0-0.5 [facility] Comment on above: Performed By: #### S CAN CBC, MG, PHOS, CMP #### [facility] [address] [place] [address] Comprehensive Metabolic Pane guy 03-13-2024 Albumin [Mass/Vol] 3.6 g/dL Normal 3.5-5.7 [facility] Comment on above: Performed By: #### S CAN CBC, MG, PHOS, CMP #### [facility] [address] [place] [address] Creatinine Clr Calc Pharmacy 56.79 Normal [facility] Comment on above: Performed By: #### S CAN CBC, MG, PHOS, CMP #### [address] GFR/1.73 sq M.predicted MDRD (S/P/Bld) [Vol rate/Area] 53.205 mL/min/{1.73_m2} Normal [facility] Comment on above: Performed By: #### S CAN CBC, MG, PHOS, CMP #### [address] Creatinine [Mass/volume] in Serum or PlasmaOrdered By: João Powell on 03-13-2024 Creatinine [Mass/Vol] 1.51 mg/dL High 0.70-1.30 [facility] Comment on above: Performed By: #### S CAN CBC, MG, PHOS, CMP #### [facility] [address] [place] [address] Creatinine [Mass/Vol] Creatinine [Mass/v olume] in Serum or Plasma High 0.70-1.[address] [facility] Eosinophils Auto (Bld) [#/Vo l]Ordered By: João Powell on 03-13-2024 Eosinophils (Bld) [#/Vol] Automated eosinophil count 0.0-0.[address] [facility] Eosinophils/100 WBC Auto (Bl d)Ordered By: João Powell on 03-13-2024 Eosinophils/100 WBC (Bld) Automated eosinophil % . [facility] Erythrocyte distribution wid th Auto (RBC) [Ratio]Ordered By: João Powell on 03-13-2024 Erythrocyte distribution width (RBC) [Ratio] Erythrocyte distribution width [Ratio] by Automated count High 12.0-14.[address] [facility] Erythrocyte distribution wid th [Ratio] by Automated countOrdered By: João Powell on 03-13-2024 Erythrocyte distribution width (RBC) [Ratio] 24.5 % High 12.0-14.[address] [facility] Comment on above: Performed By: #### S CAN CBC, MG, PHOS, CMP #### [facility] [address] Erythrocytes [#/volume] in B lood by Automated countOrdered By: Jãoo Powell on 03-13-2024 RBC (Bld) [#/Vol] 4.12 10*6/uL Normal 3.90-5.60 [facility] Comment on above: Performed By: #### S CAN CBC, MG, PHOS, CMP #### [facility] [address] Globulin Calc (S) [Mass/Vol] Ordered By: João Powell on 03-13-2024 Globulin (S) [Mass/Vol] Serum globulin measurement by calculation (mass/volume) [facility] Glucose Glucometer (BldC) [M ass/Vol]Ordered By: Remberto Ervin on 03-13-2024 Glucose [Mass/Vol] Capillary blood gluc ose measurement by glucometer (mass/volume) [facility] Comment on above: Random Glucose Refer ence Range is dependent on time and content of last meal. Glucose of more than 200 mg/dL in a nonstressed, ambulatory subject supports the diagnosis of Diabetes Mellitus. Glucose Poct Glucometerson 1 Glucose [Mass/Vol] 162 mg/dL Normal [facility] Comment on above: Result Comment: [place] Glucose Reference Range is dependent on time and content of last meal. Glucose of more than 200 mg/dL in a nonstressed, ambulatory subject supports the diagnosis of Diabetes Mellitus. PERFORMED BY: [place] [address] PATHOLOGIST SERVICE DELIVERY ANALYST CLIFFORD LOBATO M.D. Performed By: #### G LUYUNG #### Point of Care testing , Glucose [Mass/volume] in Ser um or PlasmaOrdered By: João Powell on 03-13-2024 Glucose [Mass/Vol] 149 mg/dL High 70-100 [facility] Comment on above: ADA recommended refe rence rangeRandom Glucose Reference Range is dependent on time and content of last meal. Glucose of more than 200 mg/dL in a nonstressed, ambulatory subject supports the diagnosis of Diabetes Mellitus. Result Comment: [place] Glucose Reference Range is dependent on time and content of last meal. Glucose of more than 200 mg/dL in a nonstressed, ambulatory subject supports the diagnosis of Diabetes Mellitus. ADA recommended reference range Performed By: #### S CAN CBC, MG, PHOS, CMP #### [facility] [address] Glucose [Mass/Vol] Glucose [Mass/volume ] in Serum or Plasma High 70-[address] [facility] Comment on above: ADA recommended refe rence rangeRandom Glucose Reference Range is dependent on time and content of last meal. Glucose of more than 200 mg/dL in a nonstressed, ambulatory subject supports the diagnosis of Diabetes Mellitus. Hematocrit Auto (Bld) [Volum e fraction]Ordered By: João Powell on 03-13-2024 Hematocrit (Bld) [Volume fraction] Hematocrit [Volume Fraction] of Blood by Automated count Low 38.8-50.[address] [facility] Hematocrit [Volume Fraction] of Blood by Automated countOrdered By: João Powell on 03-13-2024 Hematocrit (Bld) [Volume fraction] 29.9 % Low 38.8-50.[address] [facility] Comment on above: Performed By: #### S CAN CBC, MG, PHOS, CMP #### [facility] [address] [place] [address] [place] Hemoglobin [Mass/volume] in BloodOrdered By: João Powell on 03-13-2024 Hemoglobin (Bld) [Mass/Vol] 9.5 g/dL Low 13.0-17.[address] [facility] Comment on above: Performed By: #### S CAN CBC, MG, PHOS, CMP #### [facility] [address] Hemoglobin (Bld) [Mass/Vol] Hemoglobin [Mass/volume] in Blood Low 13.0-17.[address] [facility] Leukocytes [#/volume] correc jorge for nucleated erythrocytes in Blood by Automated counOrdered By: João Powell on 03-13-2024 WBC corrected for nucl RBC Auto (Bld) [#/Vol] 6.0 10*3/uL 4.1-10.[address] [facility] WBC corrected for nucl RBC Auto (Bld) [#/Vol] Leukocytes [#/volume] corrected for nucleated erythrocytes in Blood by Automated coun 4.1-10.[address] [facility] Leukocytes [#/volume] in Blo od by Automated countOrdered By: João Powell on 03-13-2024 WBC (Bld) [#/Vol] 6.0 10*3/uL Normal 4.1-10.5 [facility] Comment on above: Performed By: #### S CAN CBC, MG, PHOS, CMP #### [facility] [address] [place] [address] Lymphocytes Auto (Bld) [#/Vo l]Ordered By: João Powell on 03-13-2024 Lymphocytes (Bld) [#/Vol] Lymphocytes [#/volume] in Blood by Automated count Low 1.00-4.[address] [facility] Lymphocytes [#/volume] in Bl ood by Automated countOrdered By: João Powell on 03-13-2024 Lymphocytes (Bld) [#/Vol] 0.9 10*3/uL Low 1.00-4.[address] [facility] Comment on above: Performed By: #### S CAN CBC, MG, PHOS, CMP #### [facility] [address] Lymphocytes/100 WBC Auto (Bl d)Ordered By: João Powell on 03-13-2024 Lymphocytes/100 WBC (Bld) Lymphocytes/100 leukocytes in Blood by Automated count . [facility] Lymphocytes/100 leukocytes i n Blood by Automated countOrdered By: João Powell on 03-13-2024 Lymphocytes/100 WBC (Bld) 14.7 % Normal . [facility] Comment on above: Performed By: #### S CAN CBC, MG, PHOS, CMP #### [facility] [address] MCH Auto (RBC) [Entitic mass ]Ordered By: João Powell on 03-13-2024 MCH (RBC) [Entitic mass] MCH [Entitic mass] by Automated count Low 27.5-35.[address] [facility] MCH [Entitic mass] by Automa jorge countOrdered By: João Powell on 03-13-2024 MCH (RBC) [Entitic mass] 23.0 pg Low 27.5-35.[address] [facility] Comment on above: Performed By: #### S CAN CBC, MG, PHOS, CMP #### [facility] [address] [place] [address] MCHC Auto (RBC) [Mass/Vol]Or dered By: João Powell on 03-13-2024 MCHC (RBC) [Mass/Vol] 31.7 g/dL Low 32.5-35.6 [facility] MCHC (RBC) [Mass/Vol] MCHC [Mass/volume] by Automated count Low 32.5-35.[address] [facility] MCV Auto (RBC) [Entitic vol] Ordered By: João Powell on 03-13-2024 MCV (RBC) [Entitic vol] MCV [Entitic volume] by Automated count Low 83.5-[address] [facility] MCV [Entitic volume] by Auto mated countOrdered By: João Powell on 03-13-2024 MCV (RBC) [Entitic vol] 72.6 fL Low 83.5-[address] [facility] Comment on above: Performed By: #### S CAN CBC, MG, PHOS, CMP #### [address] Magnesium [Mass/volume] in S ilia or PlasmaOrdered By: João Powell on 03-13-2024 Magnesium [Mass/Vol] 1.7 mg/dL Low 1.9-2.7 [facility] Comment on above: Result Comment: PERF ORMED BY: [facility] [address] [place] [address] PATHOLOGIST SERVICE DELIVERY ANALYST CLIFFORD LOBATO M.D. Performed By: #### S CAN CBC, MG, PHOS, CMP #### [facility] [address] Magnesium [Mass/Vol] Magnesium [Mass/vol ume] in Serum or Plasma Low 1.9-2.[address] [facility] Monocytes Auto (Bld) [#/Vol] Ordered By: João Powell on 03-13-2024 Monocytes (Bld) [#/Vol] Automated blood monocyte count High 0.0-0.[address] [facility] Monocytes/100 WBC Auto (Bld) Ordered By: João Powell on 03-13-2024 Monocytes/100 WBC (Bld) Automated monocyte % . [facility] Neutrophils Auto (Bld) [#/Vo l]Ordered By: João Powell on 03-13-2024 Neutrophils (Bld) [#/Vol] Neutrophils [#/volume] in Blood by Automated count 1.8-7.[address] [facility] Neutrophils [#/volume] in Bl ood by Automated countOrdered By: João Powell on 03-13-2024 Neutrophils (Bld) [#/Vol] 4.0 10*3/uL Normal 1.8-7.[address] [facility] Comment on above: Performed By: #### S CAN CBC, MG, PHOS, CMP #### [facility] [address] [place] [address] [place] Neutrophils/100 WBC Auto (Bl d)Ordered By: João Powell on 03-13-2024 Neutrophils/100 WBC (Bld) Automated neutrophil % . [facility] No Panel InformationOrdered By: João Powell on 03-13-2024 Estimated GFR (CKD-EPI) 53.205 mL/Min [facility] Creatinine Clearance (Chem 56.[address] [facility] 53.205 mL/Min [facility] 56.[address] [facility] Nucleated erythrocytes [Pres ence] in Blood by Automated countOrdered By: João Powell on 03-13-2024 Nucleated RBC Auto Ql (Bld) 0.1 /100{WBC} 0-0.[address] [facility] Nucleated RBC Auto Ql (Bld) Nucleated erythrocytes [Presence] in Blood by Automated count 0-0.[address] [facility] Phosphate [Mass/volume] in S ilia or PlasmaOrdered By: João Powell on 03-13-2024 Phosphate [Mass/Vol] 3.0 mg/dL Normal 2.5-4.5 [facility] Comment on above: Performed By: #### S CAN CBC, MG, PHOS, CMP #### [facility] [address] Phosphate [Mass/Vol] Phosphate [Mass/vol ume] in Serum or Plasma 2.5-4.[address] [facility] Platelet mean volume Auto (B ld) [Entitic vol]Ordered By: João Powell on 03-13-2024 Platelet mean volume (Bld) [Entitic vol] Platelet mean volume [Entitic volume] in Blood by Automated count 6.6-10.[address] [facility] Platelet mean volume [Entiti c volume] in Blood by Automated countOrdered By: João Powell on 03-13-2024 Platelet mean volume (Bld) [Entitic vol] 8.9 fL Normal 6.6-10.[address] [facility] Comment on above: Performed By: #### S CAN CBC, MG, PHOS, CMP #### [facility] [address] [place] [address] [place] Platelets Auto (Bld) [#/Vol] Ordered By: João Powell on 03-13-2024 Platelets (Bld) [#/Vol] Platelets [#/volume] in Blood by Automated count 150-[address] [facility] Platelets [#/volume] in Bloo d by Automated countOrdered By: João Powell on 03-13-2024 Platelets (Bld) [#/Vol] 197 10*3/uL Normal 150-[address] [facility] Comment on above: Performed By: #### S CAN CBC, MG, PHOS, CMP #### [facility] [address] Potassium [Moles/volume] in Serum or PlasmaOrdered By: João Powell on 03-13-2024 Potassium [Moles/Vol] 3.9 mmol/L Normal 3.5-5.1 [facility] Comment on above: Performed By: #### S CAN CBC, MG, PHOS, CMP #### [facility] [address] Potassium [Moles/Vol] Potassium [Moles/v olume] in Serum or Plasma 3.5-5.[address] [facility] Protein [Mass/volume] in Ser um or PlasmaOrdered By: João Powell on 03-13-2024 Protein [Mass/Vol] 7.5 g/dL Normal 6.4-8.9 [facility] Comment on above: Performed By: #### S CAN CBC, MG, PHOS, CMP #### [address] Protein [Mass/Vol] Protein [Mass/volume ] in Serum or Plasma 6.4-8.[address] [facility] RBC Auto (Bld) [#/Vol]Ordere d By: João Powell on 03-13-2024 RBC (Bld) [#/Vol] Erythrocytes [#/volu me] in Blood by Automated count 3.90-5.[address] [facility] Serum globulin measurement b y calculation (mass/volume)Ordered By: João Powell on 03-13-2024 Globulin (S) [Mass/Vol] 3.9 g/dL Normal [facility] Comment on above: Performed By: #### S CAN CBC, MG, PHOS, CMP #### [facility] [address] Serum or plasma albumin/glob ulin mass ratioOrdered By: João Powell on 03-13-2024 Albumin/Globulin [Mass ratio] 0.9 {ratio} [facility] Comment on above: Performed By: #### S CAN CBC, MG, PHOS, CMP #### [facility] [address] Albumin/Globulin [Mass ratio] Serum or plasma albumin/globulin mass ratio [facility] Serum or plasma anion gap de terminationOrdered By: João Powell on 03-13-2024 Anion gap [Moles/Vol] 13.0 mmol/L Normal 6.0-15.0 [facility] Comment on above: Performed By: #### S CAN CBC, MG, PHOS, CMP #### [facility] [address] [place] [address] Anion gap [Moles/Vol] Serum or plasma an ion gap determination 6.0-15.[address] [facility] Sodium [Moles/volume] in Ser um or PlasmaOrdered By: João Powell on 03-13-2024 Sodium [Moles/Vol] 134 mmol/L Low 136-145 [facility] Comment on above: Performed By: #### S CAN CBC, MG, PHOS, CMP #### [facility] [address] [place] [address] Sodium [Moles/Vol] Sodium [Moles/volume ] in Serum or Plasma Low 136-[address] [facility] Urea nitrogen [Mass/volume] in Serum or PlasmaOrdered By: João Powell on 03-13-2024 Urea nitrogen [Mass/Vol] 18 mg/dL Normal 12-[address] [facility] Comment on above: Performed By: #### S CAN CBC, MG, PHOS, CMP #### [facility] [address] [place] [address] Urea nitrogen [Mass/Vol] Urea nitrogen [Mass/volume] in Serum or Plasma 12-[address] [facility] WBC Auto (Bld) [#/Vol]Ordere d By: João Powell on 03-13-2024 WBC (Bld) [#/Vol] Leukocytes [#/volume ] in Blood by Automated count 4.1-10.[address] [facility] Complete Blood Count Auto Di ffon 03-12-2024 Basophils (Bld) [#/Vol] 0.0 10*3/uL Normal 0.0-0.2 [facility] Comment on above: Result Comment: PERF ORMED BY: [place] [address] PATHOLOGIST SERVICE DELIVERY ANALYST CLIFFORD LOBATO M.D. Performed By: #### S CAN CBC, MG, PHOS, CMP #### [address] Basophils/100 WBC (Bld) 0.8 % Normal . [facility] Comment on above: Performed By: #### S CAN CBC, MG, PHOS, CMP #### [address] Eosinophils (Bld) [#/Vol] 0.1 10*3/uL Normal 0.0-0.45 [facility] Comment on above: Performed By: #### S CAN CBC, MG, PHOS, CMP #### [address] Eosinophils/100 WBC (Bld) 1.7 % Normal . [facility] Comment on above: Performed By: #### S CAN CBC, MG, PHOS, CMP #### [address] Erythrocyte distribution width (RBC) [Ratio] 24.0 % High 12.0-14.8 [facility] Comment on above: Performed By: #### S CAN CBC, MG, PHOS, CMP #### [address] Hematocrit (Bld) [Volume fraction] 28.0 % Low 38.8-50.0 [facility] Comment on above: Performed By: #### S CAN CBC, MG, PHOS, CMP #### [address] Hemoglobin (Bld) [Mass/Vol] 9.0 g/dL Low 13.0-17.0 [facility] Comment on above: Performed By: #### S CAN CBC, MG, PHOS, CMP #### [address] Lymphocytes (Bld) [#/Vol] 0.7 10*3/uL Low 1.00-4.8 [facility] Comment on above: Performed By: #### S CAN CBC, MG, PHOS, CMP #### [address] Lymphocytes/100 WBC (Bld) 12.6 % Normal . [facility] Comment on above: Performed By: #### S CAN CBC, MG, PHOS, CMP #### [address] MCH (RBC) [Entitic mass] 23.1 pg Low 27.5-35.2 [facility] Comment on above: Performed By: #### S CAN CBC, MG, PHOS, CMP #### [address] MCV (RBC) [Entitic vol] 72.1 fL Low 83.5-101 [facility] Comment on above: Performed By: #### S CAN CBC, MG, PHOS, CMP #### [address] Mean Corpuscular HGB Conc 32.1 g/dL Low 32.5-35.6 [facility] Comment on above: Performed By: #### S CAN CBC, MG, PHOS, CMP #### [address] Monocytes (Bld) [#/Vol] 1.0 10*3/uL High 0.0-0.8 [facility] Comment on above: Performed By: #### S CAN CBC, MG, PHOS, CMP #### [address] Monocytes/100 WBC (Bld) 16.2 % Normal . [facility] Comment on above: Performed By: #### S CAN CBC, MG, PHOS, CMP #### [address] Neutrophils (Bld) [#/Vol] 4.0 10*3/uL Normal 1.8-7.7 [facility] Comment on above: Performed By: #### S CAN CBC, MG, PHOS, CMP #### [address] Neutrophils/100 WBC (Bld) 68.7 % Normal . [facility] Comment on above: Performed By: #### S CAN CBC, MG, PHOS, CMP #### [address] NRBC% 0.1 /100{WBC} Normal 0-0.5 [facility] Comment on above: Performed By: #### S CAN CBC, MG, PHOS, CMP #### [address] Platelet mean volume (Bld) [Entitic vol] 8.8 fL Normal 6.6-10.1 [facility] Comment on above: Performed By: #### S CAN CBC, MG, PHOS, CMP #### [address] Platelets (Bld) [#/Vol] 191 10*3/uL Normal 150-450 [facility] Comment on above: Performed By: #### S CAN CBC, MG, PHOS, CMP #### [address] RBC (Bld) [#/Vol] 3.89 10*6/uL Low 3.90-5.60 [facility] Comment on above: Performed By: #### S CAN CBC, MG, PHOS, CMP #### [address] WBC (Bld) [#/Vol] 5.9 10*3/uL Normal 4.1-10.5 [facility] Comment on above: Performed By: #### S CAN CBC, MG, PHOS, CMP #### [address] Comprehensive Metabolic Pane guy 03-12-2024 Albumin [Mass/Vol] 3.5 g/dL Normal 3.5-5.7 [facility] Comment on above: Performed By: #### S CAN CBC, MG, PHOS, CMP #### [address] Albumin/Globulin [Mass ratio] 0.9 {ratio} Normal [facility] Comment on above: Performed By: #### S CAN CBC, MG, PHOS, CMP #### [address] ALP [Catalytic activity/Vol] 328 U/L High 34-104 [facility] Comment on above: Performed By: #### S CAN CBC, MG, PHOS, CMP #### [address] ALT [Catalytic activity/Vol] 46 U/L Normal 7-52 [facility] Comment on above: Performed By: #### S CAN CBC, MG, PHOS, CMP #### [address] Anion gap [Moles/Vol] 14.2 mmol/L Normal 6.0-15.0 [facility] Comment on above: Performed By: #### S CAN CBC, MG, PHOS, CMP #### [address] AST [Catalytic activity/Vol] 34 U/L Normal 13-39 [facility] Comment on above: Performed By: #### S CAN CBC, MG, PHOS, CMP #### [address] Bilirubin [Mass/Vol] 1.0 mg/dL Normal 0.3-1.0 [facility] Comment on above: Performed By: #### S CAN CBC, MG, PHOS, CMP #### [address] Calcium [Mass/Vol] 9.1 mg/dL Normal 8.6-10.3 [facility] Comment on above: Performed By: #### S CAN CBC, MG, PHOS, CMP #### [address] Chloride [Moles/Vol] 104 mmol/L Normal 98-107 [facility] Comment on above: Performed By: #### S CAN CBC, MG, PHOS, CMP #### [facility] [address] CO2 [Moles/Vol] 21.7 mmol/L Normal 21.0-31.0 [facility] Comment on above: Performed By: #### S CAN CBC, MG, PHOS, CMP #### [facility] [address] Creatinine [Mass/Vol] 1.46 mg/dL High 0.70-1.30 [facility] Comment on above: Performed By: #### S CAN CBC, MG, PHOS, CMP #### [facility] [address] Creatinine Clr Calc Pharmacy 58.74 Normal [facility] Comment on above: Performed By: #### S CAN CBC, MG, PHOS, CMP #### [address] GFR/1.73 sq M.predicted MDRD (S/P/Bld) [Vol rate/Area] 55.398 mL/min/{1.73_m2} Normal [facility] Comment on above: Performed By: #### S CAN CBC, MG, PHOS, CMP #### [address] Globulin (S) [Mass/Vol] 3.7 g/dL Normal [facility] Comment on above: Performed By: #### S CAN CBC, MG, PHOS, CMP #### [address] Glucose [Mass/Vol] 167 mg/dL High 70-100 [facility] Comment on above: Result Comment: [place] Glucose Reference Range is dependent on time and content of last meal. Glucose of more than 200 mg/dL in a nonstressed, ambulatory subject supports the diagnosis of Diabetes Mellitus. ADA recommended reference range Performed By: #### S CAN CBC, MG, PHOS, CMP #### [address] Potassium [Moles/Vol] 3.9 mmol/L Normal 3.5-5.1 [facility] Comment on above: Performed By: #### S CAN CBC, MG, PHOS, CMP #### [facility] [address] Protein [Mass/Vol] 7.2 g/dL Normal 6.4-8.9 [facility] Comment on above: Performed By: #### S CAN CBC, MG, PHOS, CMP #### [address] Sodium [Moles/Vol] 136 mmol/L Normal 136-145 [facility] Comment on above: Performed By: #### S CAN CBC, MG, PHOS, CMP #### [address] Urea nitrogen [Mass/Vol] 19 mg/dL Normal 7-25 [facility] Comment on above: Performed By: #### S CAN CBC, MG, PHOS, CMP #### [address] Glucose Poct Glucometerson 1 Glucose [Mass/Vol] 174 mg/dL Normal [facility] Comment on above: Result Comment: [facility] [place][note 2] Glucose Reference Range is dependent on time and content of last meal. Glucose of more than 200 mg/dL in a nonstressed, ambulatory subject supports the diagnosis of Diabetes Mellitus. PERFORMED BY: [place] [address] PATHOLOGIST SERVICE DELIVERY ANALYST CLIFFORD LOBATO M.D. Performed By: #### S CAN CBC, MG, PHOS, CMP #### [address] Glucose [Mass/Vol] 216 mg/dL Normal [facility] Comment on above: Result Comment: [facility] [place][note 2] Glucose Reference Range is dependent on time and content of last meal. Glucose of more than 200 mg/dL in a nonstressed, ambulatory subject supports the diagnosis of Diabetes Mellitus. PERFORMED BY: [place] [address] PATHOLOGIST SERVICE DELIVERY ANALYST CLIFFORD LOBATO M.D. Performed By: #### G LULS #### Point of Care testing , Glucose [Mass/Vol] 230 mg/dL Normal [facility] Comment on above: Result Comment: [place] Glucose Reference Range is dependent on time and content of last meal. Glucose of more than 200 mg/dL in a nonstressed, ambulatory subject supports the diagnosis of Diabetes Mellitus. PERFORMED BY: [place] [phone] PATHOLOGIST SERVICE DELIVERY ANALYST CLIFFORD LOBATO M.D. Performed By: #### S CAN CBC, MG, PHOS, CMP #### [address] Glucose [Mass/Vol] 179 mg/dL Normal [facility] Comment on above: Result Comment: [place] Glucose Reference Range is dependent on time and content of last meal. Glucose of more than 200 mg/dL in a nonstressed, ambulatory subject supports the diagnosis of Diabetes Mellitus. PERFORMED BY: [place] [phone] PATHOLOGIST SERVICE DELIVERY ANALYST CLIFFORD LOBATO M.D. Performed By: #### S CAN CBC, MG, PHOS, CMP #### [address] Magnesiumon 03-12-2024 Magnesium [Mass/Vol] 2.0 mg/dL Normal 1.9-2.7 [facility] Comment on above: Result Comment: PERF ORMED BY: [place] [phone] PATHOLOGIST SERVICE DELIVERY ANALYST CLIFFORD LOBATO M.D. Performed By: #### S CAN CBC, MG, PHOS, CMP #### [address] Phosphoruson 03-12-2024 Phosphate [Mass/Vol] 2.5 mg/dL Normal 2.5-4.5 [facility] Comment on above: Performed By: #### S CAN CBC, MG, PHOS, CMP #### [address] Complete Blood Count Auto Di ffon 03-11-2024 Basophils (Bld) [#/Vol] 0.1 10*3/uL Normal 0.0-0.2 [facility] Comment on above: Result Comment: PERF ORMED BY: [place] [address] PATHOLOGIST SERVICE DELIVERY ANALYST CLIFFORD LOBATO M.D. Performed By: #### S CAN CBC, MG, PHOS, CMP #### [address] Basophils/100 WBC (Bld) 0.6 % Normal . [facility] Comment on above: Performed By: #### S CAN CBC, MG, PHOS, CMP #### [address] Eosinophils (Bld) [#/Vol] 0.2 10*3/uL Normal 0.0-0.45 [facility] Comment on above: Performed By: #### S CAN CBC, MG, PHOS, CMP #### [address] Eosinophils/100 WBC (Bld) 2.7 % Normal . [facility] Comment on above: Performed By: #### S CAN CBC, MG, PHOS, CMP #### [address] Erythrocyte distribution width (RBC) [Ratio] 24.0 % High 12.0-14.8 [facility] Comment on above: Performed By: #### S CAN CBC, MG, PHOS, CMP #### [address] Hematocrit (Bld) [Volume fraction] 27.6 % Low 38.8-50.0 [facility] Comment on above: Performed By: #### S CAN CBC, MG, PHOS, CMP #### [address] Hemoglobin (Bld) [Mass/Vol] 8.8 g/dL Low 13.0-17.0 [facility] Comment on above: Performed By: #### S CAN CBC, MG, PHOS, CMP #### [address] Lymphocytes (Bld) [#/Vol] 0.5 10*3/uL Low 1.00-4.8 [facility] Comment on above: Performed By: #### S CAN CBC, MG, PHOS, CMP #### [address] Lymphocytes/100 WBC (Bld) 5.3 % Normal . [facility] Comment on above: Performed By: #### S CAN CBC, MG, PHOS, CMP #### [address] MCH (RBC) [Entitic mass] 23.1 pg Low 27.5-35.2 [facility] Comment on above: Performed By: #### S CAN CBC, MG, PHOS, CMP #### [address] MCV (RBC) [Entitic vol] 72.1 fL Low 83.5-101 [facility] Comment on above: Performed By: #### S CAN CBC, MG, PHOS, CMP #### [address] Mean Corpuscular HGB Conc 32.0 g/dL Low 32.5-35.6 [facility] Comment on above: Performed By: #### S CAN CBC, MG, PHOS, CMP #### [address] Monocytes (Bld) [#/Vol] 0.9 10*3/uL High 0.0-0.8 [facility] Comment on above: Performed By: #### S CAN CBC, MG, PHOS, CMP #### [address] Monocytes/100 WBC (Bld) 10.5 % Normal . [facility] Comment on above: Performed By: #### S CAN CBC, MG, PHOS, CMP #### [address] Neutrophils (Bld) [#/Vol] 7.3 10*3/uL Normal 1.8-7.7 [facility] Comment on above: Performed By: #### S CAN CBC, MG, PHOS, CMP #### [address] Neutrophils/100 WBC (Bld) 80.9 % Normal . [facility] Comment on above: Performed By: #### S CAN CBC, MG, PHOS, CMP #### [address] NRBC% 0.0 /100{WBC} Normal 0-0.5 [facility] Comment on above: Performed By: #### S CAN CBC, MG, PHOS, CMP #### [address] Platelet mean volume (Bld) [Entitic vol] 8.8 fL Normal 6.6-10.1 [facility] Comment on above: Performed By: #### S CAN CBC, MG, PHOS, CMP #### [address] Platelets (Bld) [#/Vol] 201 10*3/uL Normal 150-450 [facility] Comment on above: Performed By: #### S CAN CBC, MG, PHOS, CMP #### [address] RBC (Bld) [#/Vol] 3.83 10*6/uL Low 3.90-5.60 [facility] Comment on above: Performed By: #### S CAN CBC, MG, PHOS, CMP #### [address] WBC (Bld) [#/Vol] 9.0 10*3/uL Normal 4.1-10.5 [facility] Comment on above: Performed By: #### S CAN CBC, MG, PHOS, CMP #### [address] Comprehensive Metabolic Pane guy 03-11-2024 Albumin [Mass/Vol] 3.5 g/dL Normal 3.5-5.7 [facility] Comment on above: Performed By: #### S CAN CBC, MG, PHOS, CMP #### [address] Albumin/Globulin [Mass ratio] 0.9 {ratio} Normal [facility] Comment on above: Performed By: #### S CAN CBC, MG, PHOS, CMP #### [facility] [address] ALP [Catalytic activity/Vol] 367 U/L High 34-104 [facility] Comment on above: Performed By: #### S CAN CBC, MG, PHOS, CMP #### [address] ALT [Catalytic activity/Vol] 59 U/L High 7-52 [facility] Comment on above: Performed By: #### S CAN CBC, MG, PHOS, CMP #### [address] Anion gap [Moles/Vol] 12.6 mmol/L Normal 6.0-15.0 [facility] Comment on above: Performed By: #### S CAN CBC, MG, PHOS, CMP #### [address] AST [Catalytic activity/Vol] 52 U/L High 13-39 [facility] Comment on above: Performed By: #### S CAN CBC, MG, PHOS, CMP #### [place] [address] [place] Bilirubin [Mass/Vol] 1.5 mg/dL High 0.3-1.0 [facility] Comment on above: Result Comment: Samp les from patients who have taken Naproxen have shown spurious elevation in Total Bilirubin levels. A metabolite of Naproxen, O-desmethylnaproxen, has been shown to interfere with the Jendrannaleeik-Aleksandra method for measuring Total Bilirubin. Performed By: #### S CAN CBC, MG, PHOS, CMP #### [address] Calcium [Mass/Vol] 8.8 mg/dL Normal 8.6-10.3 [facility] Comment on above: Performed By: #### S CAN CBC, MG, PHOS, CMP #### [address] Chloride [Moles/Vol] 104 mmol/L Normal 98-107 [facility] Comment on above: Performed By: #### S CAN CBC, MG, PHOS, CMP #### [address] CO2 [Moles/Vol] 23.0 mmol/L Normal 21.0-31.0 [facility] Comment on above: Performed By: #### S CAN CBC, MG, PHOS, CMP #### [address] Creatinine [Mass/Vol] 1.70 mg/dL High 0.70-1.30 [facility] Comment on above: Performed By: #### S CAN CBC, MG, PHOS, CMP #### [address] Creatinine Clr Calc Pharmacy 50.45 Normal [facility] Comment on above: Performed By: #### S CAN CBC, MG, PHOS, CMP #### [address] GFR/1.73 sq M.predicted MDRD (S/P/Bld) [Vol rate/Area] 46.151 mL/min/{1.73_m2} Normal [facility] Comment on above: Performed By: #### S CAN CBC, MG, PHOS, CMP #### [place] [address] [place] Globulin (S) [Mass/Vol] 3.7 g/dL Normal [facility] Comment on above: Performed By: #### S CAN CBC, MG, PHOS, CMP #### [place] [address] [place] Glucose [Mass/Vol] 150 mg/dL High 70-100 [facility] Comment on above: Result Comment: [facility] [place][note 2] Glucose Reference Range is dependent on time and content of last meal. Glucose of more than 200 mg/dL in a nonstressed, ambulatory subject supports the diagnosis of Diabetes Mellitus. ADA recommended reference range Performed By: #### S CAN CBC, MG, PHOS, CMP #### [address] Potassium [Moles/Vol] 3.6 mmol/L Normal 3.5-5.1 [facility] Comment on above: Performed By: #### S CAN CBC, MG, PHOS, CMP #### [address] Protein [Mass/Vol] 7.2 g/dL Normal 6.4-8.9 [facility] Comment on above: Performed By: #### S CAN CBC, MG, PHOS, CMP #### [address] Sodium [Moles/Vol] 136 mmol/L Normal 136-145 [facility] Comment on above: Performed By: #### S CAN CBC, MG, PHOS, CMP #### [address] Urea nitrogen [Mass/Vol] 17 mg/dL Normal 7-25 [facility] Comment on above: Performed By: #### S CAN CBC, MG, PHOS, CMP #### [address] Glucose Poct Glucometerson 1 Glucose [Mass/Vol] 193 mg/dL Normal [facility] Comment on above: Result Comment: [facility] [place][note 2] Glucose Reference Range is dependent on time and content of last meal. Glucose of more than 200 mg/dL in a nonstressed, ambulatory subject supports the diagnosis of Diabetes Mellitus. PERFORMED BY: [place] [address] PATHOLOGIST SERVICE DELIVERY ANALYST CLIFFORD LOBATO M.D. Performed By: #### S CAN CBC, MG, PHOS, CMP #### [address] Commemt1 Glu2: Cleaned Meter Normal [facility] Comment on above: Result Comment: PERF ORMED BY: [place] [address] PATHOLOGIST SERVICE DELIVERY ANALYST CLIFFORD LOBATO M.D. Performed By: #### S CAN CBC, MG, PHOS, CMP #### [place] [address] [place] Glucose [Mass/Vol] 156 mg/dL Normal [facility] Comment on above: Result Comment: [place] om Glucose Reference Range is dependent on time and content of last meal. Glucose of more than 200 mg/dL in a nonstressed, ambulatory subject supports the diagnosis of Diabetes Mellitus. Performed By: #### S CAN CBC, MG, PHOS, CMP #### [address] Commemt1 Glu2: Cleaned Meter Normal The [facility] Comment on above: Result Comment: PERF ORMED BY: [place] [address] PATHOLOGIST SERVICE DELIVERY ANALYST CLIFFORD LOBATO M.D. Performed By: #### S CAN CBC, MG, PHOS, CMP #### [place] [address] [place] Glucose [Mass/Vol] 185 mg/dL Normal [facility] Comment on above: Result Comment: [place] Glucose Reference Range is dependent on time and content of last meal. Glucose of more than 200 mg/dL in a nonstressed, ambulatory subject supports the diagnosis of Diabetes Mellitus. Performed By: #### S CAN CBC, MG, PHOS, CMP #### [place] [address] [place] Glucose [Mass/Vol] 178 mg/dL Normal [facility] Comment on above: Result Comment: [place] Glucose Reference Range is dependent on time and content of last meal. Glucose of more than 200 mg/dL in a nonstressed, ambulatory subject supports the diagnosis of Diabetes Mellitus. PERFORMED BY: [place] [address] PATHOLOGIST SERVICE DELIVERY ANALYST CLIFFORD LOBATO M.D. Performed By: #### S CAN CBC, MG, PHOS, CMP #### [address] Hep C Ab wRfx to Qnt PCRon 1 Hepatitis C Virus Antibody Non-Reactive Normal Non Reactive [facility] Comment on above: Performed By: #### S CAN CBC, MG, PHOS, CMP #### [address] Interpretation Hepatitis C Comment Normal . [facility] Comment on above: Result Comment: Not infected with HCV unless early or acute infection is suspected (which may be delayed in an immunocompromised individual), or other evidence exists to indicate HCV infection. Performed at: [facility] [id number] [employer] Administrator: Uriel Borrero PhD, Phone: [phone] PERFORMED BY: [place] [address] PATHOLOGIST SERVICE DELIVERY ANALYST CLIFFORD LOBATO M.D. Performed By: #### S CAN CBC, MG, PHOS, CMP #### [address] Hepatitis C virus IgG Ab [Pr esence] in Serum or Plasma by ImmunoassayOrdered By: Mike Burleson on 03-11-2024 HCV IgG IA Ql Non-Reactive Non Reactive [facility] HCV IgG IA Ql Hepatitis C virus Ig G Ab [Presence] in Serum or Plasma by Immunoassay Non Reactive [facility] MR abdomen wo/w conon 2023 MR abdomen wo/w con [facility] [place] [address] MRI Report Signed Patient: Myra Pickard SR MR#: [id number] : 1965 Acct:[id number] Age/Sex: 58 / M ADM Date: 03/08/24 Loc: Room: [address] [place] [address] Type: ADM IN Attending Dr: João Powell [...] Marks Jr., D.O.03/11/2024 2:18 PM Dictation Location: [place] [address] Transcribed By: [facility] 03/11/24 1418 Dictated By: Negro Marks Jr, DO 03/11/24 1415 Signed By: 03/11/24 1418 Normal [facility] Magnesiumon 03-11-2024 Magnesium [Mass/Vol] 1.8 mg/dL Low 1.9-2.7 [facility] Comment on above: Result Comment: PERF ORMED BY: [place] [address] PATHOLOGIST SERVICE DELIVERY ANALYST CLIFFORD LOBATO M.D. Performed By: #### S CAN CBC, MG, PHOS, CMP #### [facility] [address] [place] [address] No Panel InformationOrdered By: João Powell on 03-11-2024 Bedside Glucose Comment Glu2: cleaned meter [facility] Glu2: cleaned meter [facility] No Panel InformationOrdered By: Mkie Burleson on 03-11-2024 Hepatitis C Interpretation Comment . [facility] Comment on above: Not infected with HC V unless early or acute infection issuspected (which may be delayed in an immunocompromisedindividual), or other evidence exists to indicate HCVinfection.Performed at: - [facility] [address] [id number] Director: Uriel Borrero PhD, Phone: [phone] Comment . [facility] Phosphoruson 03-11-2024 Phosphate [Mass/Vol] 3.4 mg/dL Normal 2.5-4.5 [facility] Comment on above: Performed By: #### S CAN CBC, MG, PHOS, CMP #### [address] US liveron 03-11-[address] [facility] [place] [address] [place] [address] Ultrasound Report Signed Patient: Myra Pickard SR MR#: [id number] : 1965 Acct:[id number] Age/Sex: 58 / M ADM Date: 03/08/24 Loc: Room: [address] [place] [address] Type: ADM IN Attending Dr: João Powell MD Ordering Provider: João Powell MD Date of Service: 03/11/24 US/US [...] Marks Jr., D.O.03/11/2024 10:03 AM Dictation Location: [place] [address] Tech: Kait Stringer Transcribed By: BOB 03/11/24 1003 Dictated By: Negro Marks Jr, DO 03/11/24 1002 Signed By: 03/11/24 1003 Normal [facility] Complete Blood Count Auto Di ffon 03-10-2024 Basophils (Bld) [#/Vol] 0.0 10*3/uL Normal 0.0-0.2 [facility] Comment on above: Result Comment: PERF ORMED BY: [place] [address] PATHOLOGIST SERVICE DELIVERY ANALYST CLIFFORD LOBATO M.D. Performed By: #### S CAN CBC, MG, PHOS, CMP #### [address] Basophils/100 WBC (Bld) 0.3 % Normal . [facility] Comment on above: Performed By: #### S CAN CBC, MG, PHOS, CMP #### [address] Eosinophils (Bld) [#/Vol] 0.1 10*3/uL Normal 0.0-0.45 [facility] Comment on above: Performed By: #### S CAN CBC, MG, PHOS, CMP #### [address] Eosinophils/100 WBC (Bld) 0.8 % Normal . [facility] Comment on above: Performed By: #### S CAN CBC, MG, PHOS, CMP #### [address] Erythrocyte distribution width (RBC) [Ratio] 23.4 % High 12.0-14.8 [facility] Comment on above: Performed By: #### S CAN CBC, MG, PHOS, CMP #### [address] Hematocrit (Bld) [Volume fraction] 25.8 % Low 38.8-50.0 [facility] Comment on above: Performed By: #### S CAN CBC, MG, PHOS, CMP #### [address] Hemoglobin (Bld) [Mass/Vol] 8.4 g/dL Low 13.0-17.0 [facility] Comment on above: Performed By: #### S CAN CBC, MG, PHOS, CMP #### [address] Lymphocytes (Bld) [#/Vol] 0.7 10*3/uL Low 1.00-4.8 [facility] Comment on above: Performed By: #### S CAN CBC, MG, PHOS, CMP #### [address] Lymphocytes/100 WBC (Bld) 4.9 % Normal . [facility] Comment on above: Performed By: #### S CAN CBC, MG, PHOS, CMP #### [address] MCH (RBC) [Entitic mass] 23.1 pg Low 27.5-35.2 [facility] Comment on above: Performed By: #### S CAN CBC, MG, PHOS, CMP #### [address] MCV (RBC) [Entitic vol] 71.2 fL Low 83.5-101 [facility] Comment on above: Performed By: #### S CAN CBC, MG, PHOS, CMP #### [address] Mean Corpuscular HGB Conc 32.5 g/dL Normal 32.5-35.6 [facility] Comment on above: Performed By: #### S CAN CBC, MG, PHOS, CMP #### [address] Monocytes (Bld) [#/Vol] 1.5 10*3/uL High 0.0-0.8 [facility] Comment on above: Performed By: #### S CAN CBC, MG, PHOS, CMP #### [address] Monocytes/100 WBC (Bld) 10.6 % Normal . [facility] Comment on above: Performed By: #### S CAN CBC, MG, PHOS, CMP #### [address] Neutrophils (Bld) [#/Vol] 11.4 10*3/uL High 1.8-7.7 [facility] Comment on above: Performed By: #### S CAN CBC, MG, PHOS, CMP #### [address] Neutrophils/100 WBC (Bld) 83.4 % Normal . [facility] Comment on above: Performed By: #### S CAN CBC, MG, PHOS, CMP #### [address] NRBC% 0.2 /100{WBC} Normal 0-0.5 [facility] Comment on above: Performed By: #### S CAN CBC, MG, PHOS, CMP #### [address] Platelet mean volume (Bld) [Entitic vol] 8.9 fL Normal 6.6-10.1 [facility] Comment on above: Performed By: #### S CAN CBC, MG, PHOS, CMP #### [place] [address] [place] Platelets (Bld) [#/Vol] 205 10*3/uL Normal 150-450 [facility] Comment on above: Performed By: #### S CAN CBC, MG, PHOS, CMP #### [address] RBC (Bld) [#/Vol] 3.62 10*6/uL Low 3.90-5.60 [facility] Comment on above: Performed By: #### S CAN CBC, MG, PHOS, CMP #### [address] WBC (Bld) [#/Vol] 13.7 10*3/uL High 4.1-10.5 [facility] Comment on above: Performed By: #### S CAN CBC, MG, PHOS, CMP #### [address] [address] [place] Comprehensive Metabolic Pane guy 03-10-2024 Albumin [Mass/Vol] 3.4 g/dL Low 3.5-5.7 [facility] Comment on above: Performed By: #### S CAN CBC, MG, PHOS, CMP #### [facility] [address] Albumin/Globulin [Mass ratio] 1.0 {ratio} Normal [facility] Comment on above: Performed By: #### S CAN CBC, MG, PHOS, CMP #### [facility] [address] ALP [Catalytic activity/Vol] 426 U/L High 34-104 [facility] Comment on above: Performed By: #### S CAN CBC, MG, PHOS, CMP #### [address] ALT [Catalytic activity/Vol] 78 U/L High 7-52 [facility] Comment on above: Performed By: #### S CAN CBC, MG, PHOS, CMP #### [address] Anion gap [Moles/Vol] 14.5 mmol/L Normal 6.0-15.0 [facility] Comment on above: Performed By: #### S CAN CBC, MG, PHOS, CMP #### [address] AST [Catalytic activity/Vol] 92 U/L High 13-39 [facility] Comment on above: Performed By: #### S CAN CBC, MG, PHOS, CMP #### [address] Bilirubin [Mass/Vol] 2.2 mg/dL High 0.3-1.0 [facility] Comment on above: Result Comment: Samp les from patients who have taken Naproxen have shown spurious elevation in Total Bilirubin levels. A metabolite of Naproxen, O-desmethylnaproxen, has been shown to interfere with the Allan-Aleksandra method for measuring Total Bilirubin. Performed By: #### S CAN CBC, MG, PHOS, CMP #### [address] Calcium [Mass/Vol] 8.3 mg/dL Low 8.6-10.3 [facility] Comment on above: Performed By: #### S CAN CBC, MG, PHOS, CMP #### [address] Chloride [Moles/Vol] 102 mmol/L Normal 98-107 [facility] Comment on above: Performed By: #### S CAN CBC, MG, PHOS, CMP #### [address] CO2 [Moles/Vol] 21.8 mmol/L Normal 21.0-31.0 [facility] Comment on above: Performed By: #### S CAN CBC, MG, PHOS, CMP #### [address] Creatinine [Mass/Vol] 1.81 mg/dL High 0.70-1.30 [facility] Comment on above: Performed By: #### S CAN CBC, MG, PHOS, CMP #### [address] Creatinine Clr Calc Pharmacy 47.38 Normal [facility] Comment on above: Performed By: #### S CAN CBC, MG, PHOS, CMP #### [address] GFR/1.73 sq M.predicted MDRD (S/P/Bld) [Vol rate/Area] 42.806 mL/min/{1.73_m2} Normal [facility] Comment on above: Performed By: #### S CAN CBC, MG, PHOS, CMP #### [address] Globulin (S) [Mass/Vol] 3.3 g/dL Normal [facility] Comment on above: Performed By: #### S CAN CBC, MG, PHOS, CMP #### [address] Glucose [Mass/Vol] 141 mg/dL High 70-100 [facility] Comment on above: Result Comment: [facility] [place][note 2] Glucose Reference Range is dependent on time and content of last meal. Glucose of more than 200 mg/dL in a nonstressed, ambulatory subject supports the diagnosis of Diabetes Mellitus. ADA recommended reference range Performed By: #### S CAN CBC, MG, PHOS, CMP #### [address] Potassium [Moles/Vol] 3.3 mmol/L Low 3.5-5.1 [facility] Comment on above: Performed By: #### S CAN CBC, MG, PHOS, CMP #### [address] Protein [Mass/Vol] 6.7 g/dL Normal 6.4-8.9 [facility] Comment on above: Performed By: #### S CAN CBC, MG, PHOS, CMP #### [address] Sodium [Moles/Vol] 135 mmol/L Significant change down 136-145 [facility] Comment on above: Performed By: #### S CAN CBC, MG, PHOS, CMP #### [address] Urea nitrogen [Mass/Vol] 16 mg/dL Normal 7-25 [facility] Comment on above: Performed By: #### S CAN CBC, MG, PHOS, CMP #### [address] Gamma Glutamyl Transpeptidas keyla 03-10-2024 Amylase [Catalytic activity/Vol] 176 U/L High 9-64 [facility] Comment on above: Result Comment: PERF ORMED BY: [place] [address] PATHOLOGIST SERVICE DELIVERY ANALYST CLIFFORD LOBATO M.D. Performed By: #### S CAN CBC, MG, PHOS, CMP #### [address] Gamma glutamyl transferase [ Enzymatic activity/volume] in Serum or PlasmaOrdered By: João Powell on 03-10-2024 Gamma glutamyl transferase [Catalytic activity/Vol] 176 U/L [facility] Gamma glutamyl transferase [Catalytic activity/Vol] Gamma glutamyl transferase [Enzymatic activity/volume] in Serum or Plasma [address] Glucose Poct Glucometerson 1 Commemt1 Glu2: Cleaned Meter Normal [facility] Comment on above: Result Comment: PERF ORMED BY: [place] [address] PATHOLOGIST SERVICE DELIVERY ANALYST CLIFFORD LOBATO M.D. Performed By: #### S CAN CBC, MG, PHOS, CMP #### [address] Glucose [Mass/Vol] 133 mg/dL Normal [facility] Comment on above: Result Comment: [place] Glucose Reference Range is dependent on time and content of last meal. Glucose of more than 200 mg/dL in a nonstressed, ambulatory subject supports the diagnosis of Diabetes Mellitus. Performed By: #### S CAN CBC, MG, PHOS, CMP #### [address] Commemt1 Glu2: Cleaned Meter Normal [facility] Comment on above: Result Comment: PERF ORMED BY: [place] [address] PATHOLOGIST SERVICE DELIVERY ANALYST CLIFFORD LOBATO M.D. Performed By: #### S CAN CBC, MG, PHOS, CMP #### [place] [address] [place] Glucose [Mass/Vol] 294 mg/dL Normal [facility] Comment on above: Result Comment: [place] Glucose Reference Range is dependent on time and content of last meal. Glucose of more than 200 mg/dL in a nonstressed, ambulatory subject supports the diagnosis of Diabetes Mellitus. Performed By: #### S CAN CBC, MG, PHOS, CMP #### [place] [address] [place] Glucose [Mass/Vol] 352 mg/dL Normal [facility] Comment on above: Result Comment: [place] Glucose Reference Range is dependent on time and content of last meal. Glucose of more than 200 mg/dL in a nonstressed, ambulatory subject supports the diagnosis of Diabetes Mellitus. PERFORMED BY: [place] [address] PATHOLOGIST SERVICE DELIVERY ANALYST CLIFFORD LOBATO M.D. Performed By: #### S CAN CBC, MG, PHOS, CMP #### [address] Glucose [Mass/Vol] 174 mg/dL Normal [facility] Comment on above: Result Comment: [place] Glucose Reference Range is dependent on time and content of last meal. Glucose of more than 200 mg/dL in a nonstressed, ambulatory subject supports the diagnosis of Diabetes Mellitus. PERFORMED BY: [place] [address] PATHOLOGIST SERVICE DELIVERY ANALYST CLIFFORD LOBATO M.D. Performed By: #### S CAN CBC, MG, PHOS, CMP #### [address] Magnesiumon 03-10-2024 Magnesium [Mass/Vol] 1.4 mg/dL Low 1.9-2.7 [facility] Comment on above: Result Comment: PERF ORMED BY: [place] [address] PATHOLOGIST SERVICE DELIVERY ANALYST CLIFFORD LOBATO M.D. Performed By: #### S CAN CBC, MG, PHOS, CMP #### [place] [address] [place] X-fwisay-P-Aspartate IgG, Se gladis 03-10-2024 T-sdxuwx-ZFlwdyssng IgG, Serum Negative Normal Negative [facility] Comment on above: Result Comment: This test was developed and its performance characteristics determined by [employer]. It has not been cleared or approved by the Food and Drug Administration. The [facility]-sponsored [employer] Trial (activity and safety of Inebilizumab in anti-NMDAR encephalitis) is actively recruiting patients. You may consider enrolling your patient in the clinical trial if the result of this test is positive. To learn more, or to refer your patient, call [phone] ([phone], study hotline) or see ClinicalTrials.gov (study ID, [id number]). Performed at: [facility] [id number] [employer] Administrator: Chrissy Wong MD, Phone: [phone] PERFORMED BY: [place] [address] PATHOLOGIST SERVICE DELIVERY ANALYST CLIFFORD LOBATO M.D. Performed By: #### G LULS #### Point of Care testing , No Panel InformationOrdered By: Job James on 03-10-2024 C-Mdsvdw-C-Aspartate Recept IgG Ab Negative Negative [facility] Comment on above: This test was develo ped and its performance characteristicsdetermined by [employer]. It has not been cleared orapproved by the Food and Drug Administration.The [facility]-sponsored [employer] Trial (activity and safety ofInebilizumab in anti-NMDAR encephalitis) is activelyrecruiting patients. You may consider enrolling yourpatient in the clinical trial if the result of this test ispositive. To learn more, or to refer your patient, call [phone] ([phone], study hotline) or seeinicalTrials.gov (study ID, [id number]).Performed at: [facility] [id number] Director: Chrissy Wong MD, Phone: [phone] Negative Negative [facility] Phosphoruson 03-10-2024 Phosphate [Mass/Vol] 3.1 mg/dL Normal 2.5-4.5 [facility] Comment on above: Performed By: #### S CAN CBC, MG, PHOS, CMP #### [address] Complete Blood Count Auto Di ffon 03-09-2024 Basophils (Bld) [#/Vol] 0.1 10*3/uL Normal 0.0-0.2 [facility] Comment on above: Result Comment: PERF ORMED BY: [place] [address] PATHOLOGIST SERVICE DELIVERY ANALYST CLIFFORD LOBATO M.D. Performed By: #### S CAN CBC, MG, PHOS, CMP #### [address] Basophils/100 WBC (Bld) 1.2 % Normal . [facility] Comment on above: Performed By: #### S CAN CBC, MG, PHOS, CMP #### [address] Eosinophils (Bld) [#/Vol] 0.2 10*3/uL Normal 0.0-0.45 [facility] Comment on above: Performed By: #### S CAN CBC, MG, PHOS, CMP #### [address] Eosinophils/100 WBC (Bld) 2.5 % Normal . [facility] Comment on above: Performed By: #### S CAN CBC, MG, PHOS, CMP #### [address] Erythrocyte distribution width (RBC) [Ratio] 21.9 % High 12.0-14.8 [facility] Comment on above: Performed By: #### S CAN CBC, MG, PHOS, CMP #### [address] Hematocrit (Bld) [Volume fraction] 27.8 % Low 38.8-50.0 [facility] Comment on above: Performed By: #### S CAN CBC, MG, PHOS, CMP #### [address] Hemoglobin (Bld) [Mass/Vol] 8.9 g/dL Low 13.0-17.0 [facility] Comment on above: Performed By: #### S CAN CBC, MG, PHOS, CMP #### [place] [address] [place] Lymphocytes (Bld) [#/Vol] 1.8 10*3/uL Normal 1.00-4.8 [facility] Comment on above: Performed By: #### S CAN CBC, MG, PHOS, CMP #### [address] Lymphocytes/100 WBC (Bld) 20.9 % Normal . [facility] Comment on above: Performed By: #### S CAN CBC, MG, PHOS, CMP #### [address] MCH (RBC) [Entitic mass] 22.7 pg Low 27.5-35.2 [facility] Comment on above: Performed By: #### S CAN CBC, MG, PHOS, CMP #### [address] MCV (RBC) [Entitic vol] 70.7 fL Low 83.5-101 [facility] Comment on above: Performed By: #### S CAN CBC, MG, PHOS, CMP #### [address] Mean Corpuscular HGB Conc 32.1 g/dL Low 32.5-35.6 [facility] Comment on above: Performed By: #### S CAN CBC, MG, PHOS, CMP #### [address] Monocytes (Bld) [#/Vol] 1.0 10*3/uL High 0.0-0.8 [facility] Comment on above: Performed By: #### S CAN CBC, MG, PHOS, CMP #### [address] Monocytes/100 WBC (Bld) 10.9 % Normal . [facility] Comment on above: Performed By: #### S CAN CBC, MG, PHOS, CMP #### [address] Neutrophils (Bld) [#/Vol] 5.6 10*3/uL Normal 1.8-7.7 [facility] Comment on above: Performed By: #### S CAN CBC, MG, PHOS, CMP #### [address] Neutrophils/100 WBC (Bld) 64.5 % Normal . [facility] Comment on above: Performed By: #### S CAN CBC, MG, PHOS, CMP #### [address] NRBC% 0.2 /100{WBC} Normal 0-0.5 [facility] Comment on above: Performed By: #### S CAN CBC, MG, PHOS, CMP #### [address] Platelet mean volume (Bld) [Entitic vol] 8.7 fL Normal 6.6-10.1 [facility] Comment on above: Performed By: #### S CAN CBC, MG, PHOS, CMP #### [address] Platelets (Bld) [#/Vol] 265 10*3/uL Normal 150-450 [facility] Comment on above: Performed By: #### S CAN CBC, MG, PHOS, CMP #### [address] RBC (Bld) [#/Vol] 3.93 10*6/uL Normal 3.90-5.60 [facility] Comment on above: Performed By: #### S CAN CBC, MG, PHOS, CMP #### [address] WBC (Bld) [#/Vol] 8.8 10*3/uL Normal 4.1-10.5 [facility] Comment on above: Performed By: #### S CAN CBC, MG, PHOS, CMP #### [address] Comprehensive Metabolic Pane guy 03-09-2024 Albumin [Mass/Vol] 3.5 g/dL Normal 3.5-5.7 [facility] Comment on above: Performed By: #### S CAN CBC, MG, PHOS, CMP #### [address] Albumin/Globulin [Mass ratio] 1.0 {ratio} Normal [facility] Comment on above: Performed By: #### S CAN CBC, MG, PHOS, CMP #### [facility] [address] ALP [Catalytic activity/Vol] 110 U/L High 34-104 [facility] Comment on above: Performed By: #### S CAN CBC, MG, PHOS, CMP #### [address] ALT [Catalytic activity/Vol] 10 U/L Normal 7-52 [facility] Comment on above: Performed By: #### S CAN CBC, MG, PHOS, CMP #### [address] Anion gap [Moles/Vol] 14.9 mmol/L Normal 6.0-15.0 [facility] Comment on above: Performed By: #### S CAN CBC, MG, PHOS, CMP #### [address] AST [Catalytic activity/Vol] 14 U/L Normal 13-39 [facility] Comment on above: Performed By: #### S CAN CBC, MG, PHOS, CMP #### [address] Bilirubin [Mass/Vol] 0.5 mg/dL Normal 0.3-1.0 [facility] Comment on above: Performed By: #### S CAN CBC, MG, PHOS, CMP #### [address] Calcium [Mass/Vol] 9.0 mg/dL Normal 8.6-10.3 [facility] Comment on above: Performed By: #### S CAN CBC, MG, PHOS, CMP #### [address] Chloride [Moles/Vol] 110 mmol/L High 98-107 [facility] Comment on above: Performed By: #### S CAN CBC, MG, PHOS, CMP #### [facility] [address] CO2 [Moles/Vol] 20.8 mmol/L Low 21.0-31.0 [facility] Comment on above: Performed By: #### S CAN CBC, MG, PHOS, CMP #### [address] Creatinine [Mass/Vol] 1.80 mg/dL High 0.70-1.30 [facility] Comment on above: Performed By: #### S CAN CBC, MG, PHOS, CMP #### [address] Creatinine Clr Calc Pharmacy 47.64 Normal [facility] Comment on above: Performed By: #### S CAN CBC, MG, PHOS, CMP #### [address] GFR/1.73 sq M.predicted MDRD (S/P/Bld) [Vol rate/Area] 43.092 mL/min/{1.73_m2} Normal [facility] Comment on above: Performed By: #### S CAN CBC, MG, PHOS, CMP #### [address] Globulin (S) [Mass/Vol] 3.5 g/dL Normal [facility] Comment on above: Performed By: #### S CAN CBC, MG, PHOS, CMP #### [address] Glucose [Mass/Vol] 91 mg/dL Normal 70-100 [facility] Comment on above: Result Comment: [place] Glucose Reference Range is dependent on time and content of last meal. Glucose of more than 200 mg/dL in a nonstressed, ambulatory subject supports the diagnosis of Diabetes Mellitus. ADA recommended reference range Performed By: #### S CAN CBC, MG, PHOS, CMP #### [address] Potassium [Moles/Vol] 3.7 mmol/L Normal 3.5-5.1 [facility] Comment on above: Performed By: #### S CAN CBC, MG, PHOS, CMP #### [address] Protein [Mass/Vol] 7.0 g/dL Normal 6.4-8.9 [facility] Comment on above: Performed By: #### S CAN CBC, MG, PHOS, CMP #### [address] Sodium [Moles/Vol] 142 mmol/L Normal 136-145 [facility] Comment on above: Performed By: #### S CAN CBC, MG, PHOS, CMP #### [address] Urea nitrogen [Mass/Vol] 19 mg/dL Normal 7-25 [facility] Comment on above: Performed By: #### S CAN CBC, MG, PHOS, CMP #### [address] Glucose Poct Glucometerson 1 Glucose [Mass/Vol] 386 mg/dL Normal [facility] Comment on above: Result Comment: [facility] [place][note 2] Glucose Reference Range is dependent on time and content of last meal. Glucose of more than 200 mg/dL in a nonstressed, ambulatory subject supports the diagnosis of Diabetes Mellitus. PERFORMED BY: [place] [address] PATHOLOGIST SERVICE DELIVERY ANALYST CLIFFORD LOBATO M.D. Performed By: #### S CAN CBC, MG, PHOS, CMP #### [address] Commemt1 Glu2: Cleaned Meter Normal [facility] Comment on above: Result Comment: PERF ORMED BY: [place] [address] PATHOLOGIST SERVICE DELIVERY ANALYST CLIFFORD LOBATO M.D. Performed By: #### S CAN CBC, MG, PHOS, CMP #### [address] [address] [place] Glucose [Mass/Vol] 128 mg/dL Normal [facility] Comment on above: Result Comment: [place] Glucose Reference Range is dependent on time and content of last meal. Glucose of more than 200 mg/dL in a nonstressed, ambulatory subject supports the diagnosis of Diabetes Mellitus. Performed By: #### S CAN CBC, MG, PHOS, CMP #### [address] Glucose [Mass/Vol] 119 mg/dL Normal [facility] Comment on above: Result Comment: [place] om Glucose Reference Range is dependent on time and content of last meal. Glucose of more than 200 mg/dL in a nonstressed, ambulatory subject supports the diagnosis of Diabetes Mellitus. PERFORMED BY: [place] [address] PATHOLOGIST SERVICE DELIVERY ANALYST CLIFFORD LOBATO M.D. Performed By: #### S CAN CBC, MG, PHOS, CMP #### [address] Magnesiumon 03-09-2024 Magnesium [Mass/Vol] 1.5 mg/dL Low 1.9-2.7 [facility] Comment on above: Result Comment: PERF ORMED BY: [place] [address] PATHOLOGIST SERVICE DELIVERY ANALYST CLIFFORD LOBATO M.D. Performed By: #### S CAN CBC, MG, PHOS, CMP #### [address] Phosphoruson 03-09-2024 Phosphate [Mass/Vol] 3.1 mg/dL Normal 2.5-4.5 [facility] Comment on above: Performed By: #### S CAN CBC, MG, PHOS, CMP #### [address] US renal BIon 03-09-[address] [facility] [place] [address] [place] [address] Ultrasound Report Signed Patient: Myra Pickard MR#: [id number] : 1965 Acct:[id number] Age/Sex: 58 / M ADM Date: 03/08/24 Loc: 3T Room: [address] [place] [address] Type: ADM IN Attending Dr: João Powell [...] Marks Jr., D.O.03/09/2024 3:59 PM Dictation Location: [place] [address] Tech: Marybel Sonja Transcribed By: BOB 03/09/24 1559 Dictated By: Negro Marks Jr, DO 03/09/24 1558 Signed By: 03/09/24 1559 Normal [facility] XR elbow LT 2Von 03-09-2024 XR elbow LT 2V [facility] [place] [address] XRay Report Signed Patient: Myra Pickard SR MR#: [id number] : 1965 Acct:[id number] Age/Sex: 58 / M ADM Date: 03/08/24 Loc: 3T Room: [address] [place] [address] Type: ADM IN Attending Dr: João Powell MD Copies to: João Powell MD Ordering Provider: João Powell MD Date of Service: 03/09/24 XR/XR elbow LT 2V: s/p fall, left arm pain ([id number]) XR/XR shoulder LT min 2V*: s/p fall, [...] Marks Jr., D.OMary03/09/2024 3:08 PM Dictation Location: [place] [address] Transcribed By: [facility] 03/09/24 1508 Dictated By: Negro Marks Jr, DO 03/09/24 1506 Signed By: 03/09/24 1508 Normal [facility] Activated partial thrombopla stin time (aPTT) in platelet poor plasma by coagulation aOrdered By: Bonilla Rubin on 03-08-2024 aPTT Coag (PPP) [Time] 29.6 s 25.1-36.5 [facility] Comment on above: A hematocrit value g reater than 55% may lead to inaccurate results in coagulation testing. Patients having hematocrit values >55% require a special collection tube for coagulation studies. Please contact the laboratory at [phone] for redraw instructions. Alanine aminotransferase [En zymatic activity/volume] in Serum or PlasmaOrdered By: Bonilla Rubin on 03-08-2024 ALT [Catalytic activity/Vol] 13 U/L Normal 7-[address] [facility] Comment on above: Performed By: #### G LULS #### Point of Care testing , Albumin [Mass/volume] in Ser um or Plasma by Bromocresol green (BCG) dye binding methoOrdered By: Bonilla Rubin on 03-08-2024 Albumin BCG dye [Mass/Vol] 3.8 g/dL 3.5-5.[address] [facility] Alkaline phosphatase [Enzyma tic activity/volume] in Serum or PlasmaOrdered By: Bonilla Rubin on 03-08-2024 ALP [Catalytic activity/Vol] 116 U/L High 34-[address] [facility] Comment on above: Performed By: #### G LUYUNG #### Point of Care testing , Ammonia [Moles/volume] in Pl asmaOrdered By: João Powell on 03-08-2024 Ammonia (P) [Moles/Vol] 33 umol/L Normal [facility] Comment on above: Result Comment: PERF ORMED BY: [place] [address] PATHOLOGIST SERVICE DELIVERY ANALYST CLIFFORD LOBATO M.D. Performed By: #### S CAN CBC, MG, PHOS, CMP #### [facility] [address] Ammonia (P) [Moles/Vol] Ammonia [Moles/volume] in Plasma [facility] Amphetamine Screen Ql (U)Ord ered By: Bonilla Rubin on 03-08-2024 Amphetamines Ql (U) Amphetamines screen Negativ e [facility] Amphetamines Ql (U) Negative Negative [facility] Appearance of UrineOrdered B y: Bonilla Rubin on 03-08-2024 Appearance (U) Urine appearance Clear [facility] Arterial Blood [place] 024 ABG Base Excess -1.4 mmol/L Normal -3.0-3.0 [facility] Comment on above: Performed By: #### S CAN CBC, MG, PHOS, CMP #### [facility] [address] ABG Frac Inspired O2 21 % Normal [facility] Comment on above: Performed By: #### S CAN CBC, MG, PHOS, CMP #### [facility] [address] ABG Oxygen Content 6.4 mmol/L Low 6.6-9.7 [facility] Comment on above: Performed By: #### S CAN CBC, MG, PHOS, CMP #### [facility] [address] [place] [id number] [facility] ABG Oxygen Saturation 97.1 % Normal 95.0-100.0 [facility] Comment on above: Performed By: #### S CAN CBC, MG, PHOS, CMP #### [address] ABG PCO2 33.3 mm[Hg] Low 35.0-45.0 [facility] Comment on above: Performed By: #### S CAN CBC, MG, PHOS, CMP #### [address] ABG PH 7.44 Normal 7.35-7.45 [facility] Comment on above: Performed By: #### S CAN CBC, MG, PHOS, CMP #### [address] ABG PO2 92.6 mm[Hg] Normal 80.0-100.0 [facility] Comment on above: Performed By: #### S CAN CBC, MG, PHOS, CMP #### [address] Respiratory Critical Normal [facility] Comment on above: Result Comment: Crit ical Value called on: 03/08/2024 at 15:16 PERFORMED BY: [place] [address] PATHOLOGIST SERVICE DELIVERY ANALYST CLIFFORD LOBATO M.D. Performed By: #### S CAN CBC, MG, PHOS, CMP #### [address] VBG Draw Site Left Radial Normal [facility] Comment on above: Performed By: #### S CAN CBC, MG, PHOS, CMP #### [address] Arterial Blood GasOrdered By : Bonilla Rubin on 03-08-2024 CO2 [Moles/Vol] 23.2 mmol/L Normal 23.0-27.0 [facility] Comment on above: Performed By: #### S CAN CBC, MG, PHOS, CMP #### [address] HCO3 (Bld) [Moles/Vol] 22.2 mmol/L Low 23.0-29.0 [facility] Comment on above: Performed By: #### S CAN CBC, MG, PHOS, CMP #### [address] Aspartate aminotransferase [ Enzymatic activity/volume] in Serum or PlasmaOrdered By: Bonilla Rubin on 03-08-2024 AST [Catalytic activity/Vol] 14 U/L Normal 13-[address] [facility] Comment on above: Performed By: #### G LULS #### Point of Care testing , Automated basophil %Ordered By: Bonilla Rubin on 03-08-2024 Basophils/100 WBC (Bld) 1.0 % Normal . [facility] Comment on above: Performed By: #### G LULS #### Point of Care testing , Automated basophil countOrde red By: Bonilla Rubin on 03-08-2024 Basophils (Bld) [#/Vol] 0.1 10*3/uL Normal 0.0-0.[address] [facility] Comment on above: Result Comment: PERF ORMED BY: [facility] [address] [place] [address] PATHOLOGIST SERVICE DELIVERY ANALYST CLIFFORD LOBATO M.D. Performed By: #### G LULS #### Point of Care testing , Automated blood monocyte cou ntOrdered By: Bonilla Rubin on 03-08-2024 Monocytes (Bld) [#/Vol] 1.2 10*3/uL High 0.0-0.[address] [facility] Comment on above: Performed By: #### G LULS #### Point of Care testing , Automated eosinophil %Ordere d By: Bonilla Rubin on 03-08-2024 Eosinophils/100 WBC (Bld) 3.3 % Normal . [facility] Comment on above: Performed By: #### G LULS #### Point of Care testing , Automated eosinophil countOr dered By: Bonilla Rubin on 03-08-2024 Eosinophils (Bld) [#/Vol] 0.3 10*3/uL Normal 0.0-0.[address] [facility] Comment on above: Performed By: #### G LULS #### Point of Care testing , Automated monocyte %Ordered By: Bonilla Rubin on 03-08-2024 Monocytes/100 WBC (Bld) 13.2 % Normal . [facility] Comment on above: Performed By: #### G LULS #### Point of Care testing , Automated neutrophil %Ordere d By: Bonilla Rubin on 03-08-2024 Neutrophils/100 WBC (Bld) 69.4 % Normal . [facility] Comment on above: Performed By: #### G LULS #### Point of Care testing , Bacterial blood cultureOrder ed By: Bonilla Rubin on 03-08-2024 Bacteria identified Cx Nom (Bld) Bacterial blood culture [facility] Bacteria identified Cx Nom (Bld) Bacterial blood culture [facility] Bacteria identified Cx Nom (Bld) NO GROWTH [address] [facility] Bacteria identified Cx Nom (Bld) NO GROWTH [address] [facility] Barbiturates [Presence] in U rine by Screen methodOrdered By: Bonilla Rubin on 03-08-2024 Barbiturates Screen Ql (U) Negative Negative [facility] Barbiturates Screen Ql (U) Barbiturates [Presence] in Urine by Screen method Negative [facility] Benzodiazepines Screen Ql (U )Ordered By: Bonilla Rubin on 03-08-2024 Benzodiazepines Ql (U) Negative Negative [facility] Benzodiazepines Ql (U) Benzodiazepines [Presence] in Urine by Screen method Negative [facility] Benzoylecgonine [Presence] i n Urine by Screen methodOrdered By: Bonilla Rubin on 03-08-2024 Benzoylecgonine Screen Ql (U) Negative Negative [facility] Benzoylecgonine Screen Ql (U) Benzoylecgonine [Presence] in Urine by Screen method Negative [facility] Bilirubin Test strip Ql (U)O rdered By: Bonilla Rubin on 03-08-2024 Bilirubin Ql (U) Negative Negative [facility] Bilirubin Ql (U) Bilirubin.total [Presence] in Urine by Test strip Negative [facility] Bilirubin.total [Mass/volume ] in Serum or PlasmaOrdered By: Bonilla Rubin on 10-04-2024 Bilirubin [Mass/Vol] 0.4 mg/dL Normal 0.3-1.0 [facility] Comment on above: Performed By: #### G LULS #### Point of Care testing , BioFire Not Detectedon 03-08 BioFire Not Detected Not detected Normal Not Detecte [facility] Comment on above: Result Comment: This is a duplicate RP2.1 COVID (PCR) result to be used for statistical tracking purpose only. PERFORMED BY: [place] [address] PATHOLOGIST SERVICE DELIVERY ANALYST CLIFFORD LOBATO M.D. Performed By: #### S CAN CBC, MG, PHOS, CMP #### [address] Blood Cultureon 03-08-2024 Bacteria identified Cx Nom (Bld) NO GROWTH 5 DAYS PERFORMED BY: [place] [address] PATHOLOGIST SERVICE DELIVERY ANALYST CLIFFORD LOBATO M.D. Normal [facility] Comment on above: Performed By: #### S CAN CBC, MG, PHOS, CMP #### [address] Bacteria identified Cx Nom (Bld) NO GROWTH 5 DAYS PERFORMED BY: [place] [address] PATHOLOGIST SERVICE DELIVERY ANALYST CLIFFORD LOBATO M.D. Normal [facility] Comment on above: Performed By: #### S CAN CBC, MG, PHOS, CMP #### [address] COVID-19 Detected/Not Detect edOrdered By: Bonilla Rubin on 03-08-2024 SARS-CoV-2 (COVID-19) RNA NELLY+non-probe Ql (Nph) Not detected Not Detecte [facility] Comment on above: This is a duplicate RP2.1 COVID (PCR) result to be used for statistical tracking purpose only. CT angio headon 03-08-[address] [facility] [place] [address] [place] [address] CT Scan Report Signed Patient: Myra Pickard SR MR#: [id number] : 1965 Acct:[id number] Age/Sex: 58 / M ADM Date: 03/08/24 Loc: ER Room: Type: [facility] ER Attending Dr: Copies to: Bonilla Rubin DO Ordering Provider: Bonilla Rubin DO Date of Service: 03/08/24 CT/CT head stroke alert wo con: stroke ([id number]) CT/CT angio head: f ([id number]) CT/CT angio neck: f CT head stroke [...] occlusion. Impression dictated by: Negro Marks Jr., D.OMary03/08/2024 2:41 PM Dictation Location: [place] [address] Transcribed By: [facility] 03/08/24 1441 Dictated By: Negro Marks Jr, DO 03/08/24 1425 Signed By: 03/08/24 1441 Normal [facility] Calcium [Mass/volume] in Ser um or PlasmaOrdered By: Bonilla Rubin on 03-08-2024 Calcium [Mass/Vol] 9.6 mg/dL Normal 8.6-10.3 [facility] Comment on above: Performed By: #### G LULS #### Point of Care testing , Cannabinoids [Presence] in U rine by Screen methodOrdered By: Bonilla Rubin on 03-08-2024 Cannabinoids Screen Ql (U) Negative Negative [facility] Comment on above: These are unconfirme d results and should not be used for legal purposes. Drug Cut-Off Concentration: AMPH 1000 ng/mL JERMAINE 200 ng/mL SAVANNAH 200 ng/mL COCM 300 ng/mL OP 300 ng/mL PCP 25 ng/mL THC 20 ng/mL Cannabinoids Screen Ql (U) Cannabinoids [Presence] in Urine by Screen method Negative [facility] Comment on above: These are unconfirme d results and should not be used for legal purposes. Drug Cut-Off Concentration: AMPH 1000 ng/mL JERMAINE 200 ng/mL SAVANNAH 200 ng/mL COCM 300 ng/mL OP 300 ng/mL PCP 25 ng/mL THC 20 ng/mL Capillary blood glucose [place] urement by glucometer (mass/volume)Ordered By: Bonilla Rubin on 03-08-2024 Glucose [Mass/Vol] 182 mg/dL Normal [facility] Comment on above: Result Comment: [facility] [place][note 2] Glucose Reference Range is dependent on time and content of last meal. Glucose of more than 200 mg/dL in a nonstressed, ambulatory subject supports the diagnosis of Diabetes Mellitus. PERFORMED BY: [address] [place] [address] PATHOLOGIST SERVICE DELIVERY ANALYST CLIFFORD LOBATO M.D. Performed By: #### S CAN CBC, MG, PHOS, CMP #### [facility] [address] Carbon dioxide, total [Moles /volume] in Serum or PlasmaOrdered By: Bonilla Rubin on 03-08-2024 CO2 [Moles/Vol] 25.0 mmol/L Normal 21.0-31.0 [facility] Comment on above: Performed By: #### G LULS #### Point of Care testing , Chloride [Moles/volume] in S ilia or PlasmaOrdered By: Bonilla Rubin on 03-08-2024 Chloride [Moles/Vol] 106 mmol/L Normal 98-107 [facility] Comment on above: Performed By: #### G LULS #### Point of Care testing , Color Auto (U)Ordered By: Yasmin Rubin on 03-08-2024 Color (U) Color of Urine by Auto Yellow [facility] Color of Urine by AutoOrdere d By: Bonilla Rubin on 03-08-2024 Color (U) Light-yellow Normal Yellow [facility] Comment on above: Order Comment: Name Collection Type:: Straight Catheter Performed By: #### S CAN CBC, MG, PHOS, CMP #### [facility] [address] Complete Blood Count Auto Di ffon 03-08-2024 Mean Corpuscular HGB Conc 32.0 g/dL Low 32.5-35.6 [facility] Comment on above: Performed By: #### G LULS #### Point of Care testing , Monocytes/100 WBC (Bld) 18.68 % Normal 0.00-20.00 [facility] Comment on above: Performed By: #### G LULS #### Point of Care testing , NRBC% 0.2 /100{WBC} Normal 0-0.5 [facility] Comment on above: Performed By: #### G LULS #### Point of Care testing , Comprehensive Metabolic Pane guy 03-08-2024 Albumin [Mass/Vol] 3.8 g/dL Normal 3.5-5.7 [facility] Comment on above: Performed By: #### G LULS #### Point of Care testing , Creatinine Clr Calc Pharmacy 44.90 Normal [facility] Comment on above: Result Comment: PERF ORMED BY: [place] [address] PATHOLOGIST SERVICE DELIVERY ANALYST CLIFFORD LOBATO M.D. Performed By: #### G LULS #### Point of Care testing , GFR/1.73 sq M.predicted MDRD (S/P/Bld) [Vol rate/Area] 40.131 mL/min/{1.73_m2} Normal [facility] Comment on above: Performed By: #### G LULS #### Point of Care testing , Creatine kinase [Enzymatic a ctivity/volume] in Serum or PlasmaOrdered By: Bonilla Rubin on 03-08-2024 CK [Catalytic activity/Vol] 181 U/L Normal [facility] Comment on above: Performed By: #### G LULS #### Point of Care testing , CK [Catalytic activity/Vol] Creatine kinase [Enzymatic activity/volume] in Serum or Plasma [facility] Creatinine [Mass/volume] in Serum or PlasmaOrdered By: Bonilla Rubin on 03-08-2024 Creatinine [Mass/Vol] 1.91 mg/dL High 0.70-1.30 [facility] Comment on above: Performed By: #### G LULS #### Point of Care testing , Drug Screen,Urineon 03-08-20 24 Amphetamine Screen,Urine Negative Normal Negative [facility] Comment on above: Performed By: #### S CAN CBC, MG, PHOS, CMP #### [facility] [address] [place] [address] [place] Barbiturate Screen,Urine Negative Normal Negative [facility] Comment on above: Performed By: #### S CAN CBC, MG, PHOS, CMP #### [facility] [address] [place] [address] [place] Benzodiazepines Screen,Urine Negative Normal Negative [facility] Comment on above: Performed By: #### S CAN CBC, MG, PHOS, CMP #### [address] Cannabinoid Screen,Urine Negative Normal Negative [facility] Comment on above: Result Comment: Thes e are unconfirmed results and should not be used for legal purposes. Drug Cut-Off Concentration: AMPH 1000 ng/mL JERMAINE 200 ng/mL SAVANNAH 200 ng/mL COCM 300 ng/mL OP 300 ng/mL PCP 25 ng/mL THC 20 ng/mL PERFORMED BY: [place] [address] PATHOLOGIST SERVICE DELIVERY ANALYST CLIFFORD LOBATO M.D. Performed By: #### S CAN CBC, MG, PHOS, CMP #### [address] Cocaine Screen,Urine Negative Normal Negative [facility] Comment on above: Performed By: #### S CAN CBC, MG, PHOS, CMP #### [address] Opiate Screen,Urine Negative Normal Negative [facility] Comment on above: Performed By: #### S CAN CBC, MG, PHOS, CMP #### [address] Phencyclidine Screen,Urine Negative Normal Negative [facility] Comment on above: Performed By: #### S CAN CBC, MG, PHOS, CMP #### [address] ECG 12 lead ECGon 03-08-2024 [address] [facility] [place] [address] [place] [address] Electrocardiograph Report Signed Patient: Myra Pickard SR MR#: [id number] : 1965 Acct:[id number] Age/Sex: 58 / M ADM Date: 03/08/24 Loc: ER Room: Type: [facility] ER Attending Dr: Ordering Provider: Bonilla Rubin DO Date of Service: 03/08/2409/26/1414 ECG/ECG [...] When compared with ECG of 03-Mar-2024 13:46, [place] interval has decreased Incomplete right bundle branch block is now present Confirmed by BONILLA RUBIN DO ([id number]) on 03/08/2024 8:00:38 PM Referred By: Electronically Signed By: BONILLA RUBIN DO Transcribed By: MUS Signed By Bonilla Rubin DO 03/08 Normal [facility] Erythrocyte distribution wid th [Ratio] by Automated countOrdered By: Bonilla Rubin on 03-08-2024 Erythrocyte distribution width (RBC) [Ratio] 22.0 % High 12.0-14.[address] [facility] Comment on above: Performed By: #### G LULS #### Point of Care testing , Erythrocytes [#/volume] in B lood by Automated countOrdered By: Bonilla Rubin on 03-08-2024 RBC (Bld) [#/Vol] 4.54 10*6/uL Normal 3.90-5.60 [facility] Comment on above: Performed By: #### G LULS #### Point of Care testing , Glucose [Mass/volume] in Ser um or PlasmaOrdered By: Bonilla Rubin on 03-08-2024 Glucose [Mass/Vol] 167 mg/dL High 70-100 [facility] Comment on above: Result Comment: [place] Glucose Reference Range is dependent on time and content of last meal. Glucose of more than 200 mg/dL in a nonstressed, ambulatory subject supports the diagnosis of Diabetes Mellitus. ADA recommended reference range Performed By: #### G LULS #### Point of Care testing , Glucose [Mass/volume] in Uri ne by Test stripOrdered By: Bonilla Rubin on 03-08-2024 Glucose Test strip (U) [Mass/Vol] >=1000 mg/dL [facility] Glucose Test strip (U) [Mass/Vol] Glucose [Mass/volume] in Urine by Test strip [facility] Hematocrit [Volume Fraction] of Blood by Automated countOrdered By: Bonilla Rubin on 03-08-2024 Hematocrit (Bld) [Volume fraction] 32.2 % Low 38.8-50.[address] [facility] Comment on above: Performed By: #### G LULS #### Point of Care testing , Hemoglobin Test strip Ql (U) Ordered By: Bonilla Rubin on 03-08-2024 Hemoglobin Ql (U) Negative Negative [facility] Hemoglobin Ql (U) Hemoglobin [Presence ] in Urine by Test strip Negative [facility] Hemoglobin [Mass/volume] in BloodOrdered By: Bonilla Rubin on 03-08-2024 Hemoglobin (Bld) [Mass/Vol] 10.3 g/dL Low 13.0-17.[address] [facility] Comment on above: Performed By: #### G LULS #### Point of Care testing , INR in Platelet poor plasma by Coagulation assayOrdered By: Bonilla Rubin on 03-08-2024 INR Coag (PPP) [Relative time] 1.1 {INR} Normal [facility] Comment on above: INR Therapeutic Rang [...] #### Point of Care testing , INR Coag (PPP) [Relative time] INR in Platelet poor plasma by Coagulation assay [facility] Comment on above: INR Therapeutic Rang [...] mechanical heart valves: 3 - 4.5 Ketones Test strip Ql (U)Ord ered By: Bonilla Rubin on 03-08-2024 Ketones Ql (U) Ketones [Presence] i n Urine by Test strip Negative [facility] Ketones [Presence] in Urine by Test stripOrdered By: Bonilla Rubin on 03-08-2024 Ketones Ql (U) Negative Normal Negative [facility] Comment on above: Order Comment: Name Collection Type:: Straight Catheter Performed By: #### S CAN CBC, MG, PHOS, CMP #### [facility] [address] [place] [address] [place] Lactate [Moles/volume] in Se rum or PlasmaOrdered By: Bonilla Rubin on 03-08-2024 Lactate [Moles/Vol] 1.1 mmol/L Normal 0.5-2.2 [facility] Comment on above: Result Comment: PERF ORMED BY: [place] [address] PATHOLOGIST SERVICE DELIVERY ANALYST CLIFFORD LOBATO M.D. Performed By: #### S CAN CBC, MG, PHOS, CMP #### [facility] [address] [place] [address] [place] Lactate [Moles/Vol] Lactate [Moles/volum e] in Serum or Plasma 0.5-2.[address] [facility] Leukocyte esterase [Presence ] in Urine by Test stripOrdered By: Bonilla Rubin on 03-08-2024 Leukocyte esterase Test strip Ql (U) Negative Normal Negative [facility] Comment on above: Order Comment: Name Collection Type:: Straight Catheter Performed By: #### S CAN CBC, MG, PHOS, CMP #### [facility] [address] [place] [address] [place] Leukocyte esterase Test strip Ql (U) Leukocyte esterase [Presence] in Urine by Test strip Negative [facility] Leukocytes [#/volume] correc jorge for nucleated erythrocytes in Blood by Automated counOrdered By: Bonilla Rubin on 10-04-2024 WBC corrected for nucl RBC Auto (Bld) [#/Vol] 8.9 10*3/uL 4.1-10.[address] [facility] Leukocytes [#/volume] in Blo od by Automated countOrdered By: Bonilla Rubin on 03-08-2024 WBC (Bld) [#/Vol] 8.9 10*3/uL Normal 4.1-10.5 [facility] Comment on above: Performed By: #### G LULS #### Point of Care testing , Lymphocytes [#/volume] in Bl ood by Automated countOrdered By: Bonilla Rubin on 03-08-2024 Lymphocytes (Bld) [#/Vol] 1.2 10*3/uL Normal 1.00-4.[address] [facility] Comment on above: Performed By: #### G LULS #### Point of Care testing , Lymphocytes/100 leukocytes i n Blood by Automated countOrdered By: Bonilla Rubin on 03-08-2024 Lymphocytes/100 WBC (Bld) 13.1 % Normal . [facility] Comment on above: Performed By: #### G LULS #### Point of Care testing , MCH [Entitic mass] by Automa jorge countOrdered By: Bonilla Rubin on 03-08-2024 MCH (RBC) [Entitic mass] 22.7 pg Low 27.5-35.[address] [facility] Comment on above: Performed By: #### G LULS #### Point of Care testing , MCHC Auto (RBC) [Mass/Vol]Or dered By: Bonilla Rubin on 03-08-2024 MCHC (RBC) [Mass/Vol] 32.0 g/dL Low 32.5-35.6 [facility] MCV [Entitic volume] by Auto mated countOrdered By: Bonilla Rubin on 03-08-2024 MCV (RBC) [Entitic vol] 71.0 fL Low 83.5-[address] [facility] Comment on above: Performed By: #### G LULS #### Point of Care testing , MR head/brain wo conon 03-08 MR head/brain wo con [facility] Main [address] [address] MRI Report Signed Patient: Myra Pickard SR MR#: [id number] : 1965 Acct:[id number] Age/Sex: 58 / M ADM Date: 03/08/24 Loc: 3T Room: [address] [place] [address] Type: ADM IN Attending Dr: João Powell [...] Sudeep Lind M.D.03/08/2024 8:10 PM Dictation Location: [place] [address] Transcribed By: [facility] 03/08/242009 Dictated By: Sudeep Lind DO 03/08/242006 Signed By: 03/08/242009 Normal [facility] Monocyte distribution width [Entitic volume] in Blood by AutomatedOrdered By: Bonilla Rubin on 03-08-2024 Monocyte distribution width Auto (Bld) [Entitic vol] 18.68 % 0.00-20.[address] [facility] Monocyte distribution width Auto (Bld) [Entitic vol] Monocyte distribution width [Entitic volume] in Blood by Automated 0.00-20.[address] [facility] Neutrophils [#/volume] in Bl ood by Automated countOrdered By: Bonilla Rubin on 03-08-2024 Neutrophils (Bld) [#/Vol] 6.2 10*3/uL Normal 1.8-7.[address] [facility] Comment on above: Performed By: #### G LULS #### Point of Care testing , Nitrite Test strip Ql (U)Ord ered By: Bonilla Rubin on 03-08-2024 Nitrite Ql (U) Negative Negative [facility] Nitrite Ql (U) Nitrite [Presence] i n Urine by Test strip Negative [facility] No Panel InformationOrdered By: Bonilla Rubin on 03-08-2024 Arterial Blood Base Excess -1.4 mmol/L -3.0-3.[address] [facility] Arterial Blood Oxygen Content 6.4 mmol/L Low 6.6-9.[address] [facility] Arterial Blood Oxygen Saturation 97.1 % 95.0-100.[address] [facility] Arterial Blood Partial Pressure CO2 33.3 mm[Hg] Low 35.0-45.[address] [facility] Arterial Blood Partial Pressure O2 92.6 mm[Hg] 80.0-100.[address] [facility] Arterial Blood pH 7.44 7.35-7.45 [facility] Blood Gas Critical Value See comment [facility] Comment on above: Critical Value gibbons d on: 03/08/2024 at 15:16 Blood Gas Sample Site Left radial [facility] FiO2 21 % [facility] 7.44 7.35-7.[address] [facility] 33.3 mm[Hg] Low 35.0-45.[address] [facility] 92.6 mm[Hg] 80.0-100.[address] [facility] 22.2 mmol/L Low 23.0-29.[address] [facility] -1.4 mmol/L -3.0-3.[address] [facility] 97.1 % 95.0-100.[address] [facility] 6.4 mmol/L Low 6.6-9.[address] [facility] 23.2 mmol/L 23.0-27.[address] [facility] 21 % [facility] Left radial [facility] See comment [facility] 40.131 mL/Min [facility] 44.[address] [facility] Nucleated erythrocytes [Pres ence] in Blood by Automated countOrdered By: Bonilla Rubin on 03-08-2024 Nucleated RBC Auto Ql (Bld) 0.2 /100{WBC} 0-0.[address] [facility] Opiates [Presence] in Urine by Screen methodOrdered By: Bonilla Rubin on 03-08-2024 Opiates Screen Ql (U) Negative Negative Fir [facility] Opiates Screen Ql (U) Opiates [Presence] in Urine by Screen method Negative [facility] Partial Thromboplastin Timeo n 03-08-2024 aPTT Coag (Bld) [Time] 29.6 s Normal 25.1-36.5 [facility] Comment on above: Result Comment: A he matocrit value greater than 55% may lead to inaccurate results in coagulation testing. Patients having hematocrit values >55% require a special collection tube for coagulation studies. Please contact the laboratory at [phone] for redraw instructions. PERFORMED BY: [address] [place] [address] PATHOLOGIST SERVICE DELIVERY ANALYST CLIFFORD LOBATO M.D. Performed By: #### G LULS #### Point of Care testing , Phencyclidine Screen Ql (U)O rdered By: Bonilla Rubin on 03-08-2024 Phencyclidine Ql (U) Negative Negative [facility] Phencyclidine Ql (U) Phencyclidine [Pres ence] in Urine by Screen method Negative [facility] Platelet mean volume [Entiti c volume] in Blood by Automated countOrdered By: Bonilla Rubin on 03-08-2024 Platelet mean volume (Bld) [Entitic vol] 8.2 fL Normal 6.6-10.[address] [facility] Comment on above: Performed By: #### G LULS #### Point of Care testing , Platelets [#/volume] in Bloo d by Automated countOrdered By: Bonilla Rubin on 03-08-2024 Platelets (Bld) [#/Vol] 286 10*3/uL Normal 150-[address] [facility] Comment on above: Performed By: #### G LULS #### Point of Care testing , Potassium [Moles/volume] in Serum or PlasmaOrdered By: Bonilla Rubin on 03-08-2024 Potassium [Moles/Vol] 4.1 mmol/L Normal 3.5-5.1 [facility] Comment on above: Performed By: #### G LULS #### Point of Care testing , Protein Test strip (U) [Mass /Vol]Ordered By: Bonilla Rubin on 03-08-2024 Protein (U) [Mass/Vol] Negative Negative [facility] Protein (U) [Mass/Vol] Protein [Mass/vol ume] in Urine by Test strip Negative [facility] Protein [Mass/volume] in Ser um or PlasmaOrdered By: Bonilla Rubin on 03-08-2024 Protein [Mass/Vol] 7.7 g/dL Normal 6.4-8.9 [facility] Comment on above: Performed By: #### G LULS #### Point of Care testing , Prothrombin time (PT)Ordered By: Bonilla Rubin on 03-08-2024 PT Coag (PPP) [Time] 13.0 s High 9.0-12.9 [facility] Comment on above: A hematocrit value g reater than 55% may lead to inaccurate results in coagulation testing. Patients having hematocrit values >55% require a special collection tube for coagulation studies. Please contact the laboratory at [phone] for redraw instructions. Result Comment: A he matocrit value greater than 55% may lead to inaccurate results in coagulation testing. Patients having hematocrit values >55% require a special collection tube for coagulation studies. Please contact the laboratory at [phone] for redraw instructions. Performed By: #### G LULS #### Point of Care testing , PT Coag (PPP) [Time] Prothrombin time (PT) High 9.0- 12.[address] [facility] Comment on above: A hematocrit value g reater than 55% may lead to inaccurate results in coagulation testing. Patients having hematocrit values >55% require a special collection tube for coagulation studies. Please contact the laboratory at [phone] for redraw instructions. Respiratory (Upper) Panel, P [...] A H3 Blank Space ---- PERFORMED BY: [place] [address] PATHOLOGIST SERVICE DELIVERY ANALYST CLIFFORD LOBATO M.D. Normal [facility] Comment on above: Performed By: #### S CAN CBC, MG, PHOS, CMP #### [facility] [address] Respiratory pathogens DNA an d RNA panel - Nasopharynx by NELLY with non-probe detectionOrdered By: Bonilla Rubin on 03-08-2024 Respiratory pathogens DNA and RNA panel NELLY+non-probe (Nph) Respiratory pathogens DNA and RNA panel - Nasopharynx by NELLY with non-probe detection [facility] Respiratory pathogens DNA and RNA panel NELLY+non-probe (Nph) [facility] Serum globulin measurement b y calculation (mass/volume)Ordered By: Bonilla Rubin on 03-08-2024 Globulin (S) [Mass/Vol] 3.9 g/dL Normal [facility] Comment on above: Performed By: #### G LULS #### Point of Care testing , Serum or plasma albumin/glob ulin mass ratioOrdered By: Bonilla Rubin on 03-08-2024 Albumin/Globulin [Mass ratio] 1.0 {ratio} Normal [facility] Comment on above: Performed By: #### G LULS #### Point of Care testing , Serum or plasma anion gap de terminationOrdered By: Bonilla Rubin on 03-08-2024 Anion gap [Moles/Vol] 14.1 mmol/L Normal 6.0-15.0 [facility] Comment on above: Performed By: #### G LULS #### Point of Care testing , Sodium [Moles/volume] in Ser um or PlasmaOrdered By: Bonilla Ruibn on 03-08-2024 Sodium [Moles/Vol] 141 mmol/L Normal 136-145 [facility] Comment on above: Performed By: #### G LULS #### Point of Care testing , Specific gravity Test strip (U) [Rel density]Ordered By: Bonilla Rubin on 03-08-2024 Specific gravity (U) [Rel density] 1.013 1.001-1.[address] [facility] Specific gravity (U) [Rel density] Specific gravity of Urine by Test strip 1.001-1.[address] [facility] Troponin I High Sensitivityo n 03-08-2024 Troponin I High Sensitivity 6.1 pg/mL Normal 0.0-20.0 [facility] Comment on above: Result Comment: PERF ORMED BY: [facility] [address] [facility] [address] PATHOLOGIST SERVICE DELIVERY ANALYST CLIFFORD LOBATO M.D. Performed By: #### G LULS #### Point of Care testing , Troponin I.cardiac [Mass/vol ume] in Serum or Plasma by Detection limit <= 0.01 ng/Ordered By: Bonilla Rubin on 03-08-2024 Troponin I.cardiac DL <= 0.01 ng/mL [Mass/Vol] 6.1 pg/mL 0.0-20.[address] [facility] Troponin I.cardiac DL <= 0.01 ng/mL [Mass/Vol] Troponin I.cardiac [Mass/volume] in Serum or Plasma by Detection limit <= 0.01 ng/ 0.0-20.[address] [facility] Urea nitrogen [Mass/volume] in Serum or PlasmaOrdered By: Bonilla Rubin on 03-08-2024 Urea nitrogen [Mass/Vol] 19 mg/dL Normal 7-[address] [facility] Comment on above: Performed By: #### G LULS #### Point of Care testing , Urinalysison 03-08-2024 Bilirubin,Urine Negative Normal Negative [facility] Comment on above: Order Comment: Name Collection Type:: Straight Catheter Performed By: #### S CAN CBC, MG, PHOS, CMP #### [facility] [address] Glucose Ql (U) >=1000 High Normal [facility] Comment on above: Order Comment: Name Collection Type:: Straight Catheter Performed By: #### S CAN CBC, MG, PHOS, CMP #### [facility] [address] Nitrite,Urine Negative Normal Negative [facility] Comment on above: Order Comment: Name Collection Type:: Straight Catheter Performed By: #### S CAN CBC, MG, PHOS, CMP #### [address] Occult Blood,Urine Negative Normal Negative [facility] Comment on above: Order Comment: Name Collection Type:: Straight Catheter Result Comment: PERF ORMED BY: [place] [address] PATHOLOGIST SERVICE DELIVERY ANALYST CLIFFORD LOBATO M.D. Performed By: #### S CAN CBC, MG, PHOS, CMP #### [facility] [address] [place] [address] [place] Protein,Urine Negative Normal Negative [facility] Comment on above: Order Comment: Name Collection Type:: Straight Catheter Performed By: #### S CAN CBC, MG, PHOS, CMP #### [address] Specificy [place],Urine 1.013 Normal 1.001-1.03 0 [facility] Comment on above: Order Comment: Name Collection Type:: Straight Catheter Performed By: #### S CAN CBC, MG, PHOS, CMP #### [facility] [address] [place] [address] Urobilinogen,Urine Normal Normal Normal [facility] Comment on above: Order Comment: Name Collection Type:: Straight Catheter Performed By: #### S CAN CBC, MG, PHOS, CMP #### [facility] [address] [place] [address] Urine appearanceOrdered By: Bonilla Rubin on 03-08-2024 Appearance (U) Clear Normal Clear [facility] Comment on above: Order Comment: Name Collection Type:: Straight Catheter Performed By: #### S CAN CBC, MG, PHOS, CMP #### [facility] [address] [place] [address] Urobilinogen Test strip (U) [Mass/Vol]Ordered By: Bonilla Rubin on 03-08-2024 Urobilinogen (U) [Mass/Vol] Normal mg/dL Normal [facility] Urobilinogen (U) [Mass/Vol] Urobilinogen [Mass/volume] in Urine by Test strip Normal [facility] XR chest 1V portableon 03-[address] [facility] [place] [address] [place] [address] XRay Report Signed Patient: Myra Pickard SR MR#: [id number] : 1965 Acct:[id number] Age/Sex: 58 / M ADM Date: 03/08/24 Loc: Room: [address] [place] [address] Type: ADM IN Attending Dr: João Powell MD Copies to: DO João Rao MD Ordering Provider: Bonilla Rubin DO Date of Service: 03/08/24 XR/XR [...] Sudeep Lind M.D.03/08/2024 6:08 PM Dictation Location: [place] [address] Transcribed By: [facility] 03/08/241807 Dictated By: Sudeep Lind DO 03/08/241807 Signed By: 03/08/241807 Normal [facility] aPTT in Platelet poor plasma by Coagulation assayOrdered By: Bonilla Rubin on 03-08-2024 aPTT Coag (PPP) [Time] Activated partial thromboplastin time (aPTT) in platelet poor plasma by coagulation a 25.1-36.[address] [facility] Comment on above: A hematocrit value g reater than 55% may lead to inaccurate results in coagulation testing. Patients having hematocrit values >55% require a special collection tube for coagulation studies. Please contact the laboratory at [phone] for redraw instructions. pH Test strip (U)Ordered By: Bonilla Rubin on 03-08-2024 pH (U) pH of Urine by Test strip 5.0-9.[address] [facility] pH of Urine by Test stripOrd ered By: Bonilla Rubin on 03-08-2024 pH (U) 5.0 [pH] Normal 5.0-9.[address] [facility] Comment on above: Order Comment: Name Collection Type:: Straight Catheter Performed By: #### S CAN CBC, MG, PHOS, CMP #### [address] Alanine aminotransferase [En zymatic activity/volume] in Serum or PlasmaOrdered By: João Powell on 03-06-2024 ALT [Catalytic activity/Vol] 11 U/L Normal [facility] Comment on above: Performed By: #### G LULS #### Point of Care testing , ALT [Catalytic activity/Vol] Alanine aminotransferase [Enzymatic activity/volume] in Serum or Plasma [facility] Albumin [Mass/volume] in Ser um or Plasma by Bromocresol green (BCG) dye binding methoOrdered By: João Powell on 03-06-2024 Albumin BCG dye [Mass/Vol] 3.3 g/dL Low 3.5-5.[address] [facility] Albumin BCG dye [Mass/Vol] Albumin [Mass/volume] in Serum or Plasma by Bromocresol green (BCG) dye binding metho Low 3.5-5.[address] [facility] Alkaline phosphatase [Enzyma tic activity/volume] in Serum or PlasmaOrdered By: João Powell on 03-06-2024 ALP [Catalytic activity/Vol] 101 U/L Normal 34-[address] [facility] Comment on above: Performed By: #### G LULS #### Point of Care testing , ALP [Catalytic activity/Vol] Alkaline phosphatase [Enzymatic activity/volume] in Serum or Plasma 34-[address] [facility] Anisocytosis LM Ql (Bld)Orde red By: João Powell on 03-06-2024 Anisocytosis Ql (Bld) Anisocytosis [Pres ence] in Blood by Light microscopy [facility] Anisocytosis [Presence] in B lood by Light microscopyOrdered By: João Powell on 03-06-2024 Anisocytosis Ql (Bld) Marked Normal [facility] Comment on above: Performed By: #### G LULS #### Point of Care testing , Aspartate aminotransferase [ Enzymatic activity/volume] in Serum or PlasmaOrdered By: João Powell on 03-06-2024 AST [Catalytic activity/Vol] 14 U/L Normal 13-[address] [facility] Comment on above: Performed By: #### G LULS #### Point of Care testing , AST [Catalytic activity/Vol] Aspartate aminotransferase [Enzymatic activity/volume] in Serum or Plasma 13-[address] [facility] Basophils Auto (Bld) [#/Vol] Ordered By: João Powell on 03-06-2024 Basophils (Bld) [#/Vol] N/A [facility] Basophils (Bld) [#/Vol] Automated basophil count [facility] Basophils/100 WBC Auto (Bld) Ordered By: João Powell on 03-06-2024 Basophils/100 WBC (Bld) N/A [facility] Basophils/100 WBC (Bld) Automated basophil % [facility] Basophils/100 WBC Manual cnt (Bld)Ordered By: João Powell on 03-06-2024 Basophils/100 WBC (Bld) Basophils/100 leukocytes in Blood by Manual count 0-[address] [facility] Basophils/100 leukocytes in Blood by Manual countOrdered By: João Powell on 03-06-2024 Basophils/100 WBC (Bld) 1 % Normal 0-[address] [facility] Comment on above: Performed By: #### G LULS #### Point of Care testing , Bilirubin.total [Mass/volume ] in Serum or PlasmaOrdered By: João Powell on 03-06-2024 Bilirubin [Mass/Vol] 0.4 mg/dL Normal 0.3-1.0 [facility] Comment on above: Performed By: #### G LULS #### Point of Care testing , Bilirubin [Mass/Vol] Bilirubin.total [Mass/volume] in Serum or Plasma 0.3-1.[address] [facility] Calcium [Mass/volume] in Ser um or PlasmaOrdered By: João Powell on 03-06-2024 Calcium [Mass/Vol] 8.7 mg/dL Normal 8.6-10.3 [facility] Comment on above: Performed By: #### G LULS #### Point of Care testing , Calcium [Mass/Vol] Calcium [Mass/volume ] in Serum or Plasma 8.6-10.[address] [facility] Capillary blood glucose ashley urement by glucometer (mass/volume)Ordered By: João Powell on 03-06-2024 Glucose [Mass/Vol] 169 mg/dL Normal [facility] Comment on above: Random Glucose Refer ence Range is dependent on time and content of last meal. Glucose of more than 200 mg/dL in a nonstressed, ambulatory subject supports the diagnosis of Diabetes Mellitus. Result Comment: [place] Glucose Reference Range is dependent on time and content of last meal. Glucose of more than 200 mg/dL in a nonstressed, ambulatory subject supports the diagnosis of Diabetes Mellitus. PERFORMED BY: [address] [place] [address] PATHOLOGIST SERVICE DELIVERY ANALYST CLIFFORD LOBATO M.D. Performed By: #### S CAN CBC, MG, PHOS, CMP #### [facility] [address] Carbon dioxide, total [Moles /volume] in Serum or PlasmaOrdered By: João Powell on 03-06-2024 CO2 [Moles/Vol] 24.3 mmol/L Normal 21.0-31.0 [facility] Comment on above: Performed By: #### G LULS #### Point of Care testing , CO2 [Moles/Vol] Carbon dioxide, tota l [Moles/volume] in Serum or Plasma 21.0-31.[address] [facility] Chloride [Moles/volume] in S ilia or PlasmaOrdered By: João Powell on 03-06-2024 Chloride [Moles/Vol] 107 mmol/L Normal 98-107 [facility] Comment on above: Performed By: #### G LULS #### Point of Care testing , Chloride [Moles/Vol] Chloride [Moles/vol ume] in Serum or Plasma 98-[address] [facility] Comprehensive Metabolic Pane guy 03-06-2024 Albumin [Mass/Vol] 3.3 g/dL Low 3.5-5.7 [facility] Comment on above: Performed By: #### G LULS #### Point of Care testing , Creatinine Clr Calc Pharmacy 62.24 Normal [facility] Comment on above: Performed By: #### G LULS #### Point of Care testing , GFR/1.73 sq M.predicted MDRD (S/P/Bld) [Vol rate/Area] 57.276 mL/min/{1.73_m2} Normal [facility] Group Comment on above: Performed By: #### G LULS #### Point of Care testing , Creatinine [Mass/volume] in Serum or PlasmaOrdered By: João Powell on 03-06-2024 Creatinine [Mass/Vol] 1.42 mg/dL High 0.70-1.30 [facility] Comment on above: Performed By: #### G LULS #### Point of Care testing , Creatinine [Mass/Vol] Creatinine [Mass/v olume] in Serum or Plasma High 0.70-1.[address] [facility] Dacrocytes [Presence] in Blo od by Light microscopyOrdered By: João Powell on 03-06-2024 Dacrocytes LM Ql (Bld) Teardrop cell detection [facility] Diff and CBCon 03-06-2024 Hypochromasia Slight Normal [facility] Comment on above: Performed By: #### G LULS #### Point of Care testing , Large Platelets Slight Normal [facility] Comment on above: Result Comment: PERF ORMED BY: [facility] [address] [place] [address] PATHOLOGIST SERVICE DELIVERY ANALYST CLIFFORD LOBATO M.D. Performed By: #### G LULS #### Point of Care testing , Mean Corpuscular HGB Conc 32.0 g/dL Low 32.5-35.6 [facility] Comment on above: Performed By: #### G LULS #### Point of Care testing , Microcytosis Slight Normal [facility] Comment on above: Performed By: #### G LULS #### Point of Care testing , Platelet Estimate Normal Normal Normal [facility] Comment on above: Performed By: #### G LULS #### Point of Care testing , Polychromasia Slight Normal [facility] Comment on above: Performed By: #### G LULS #### Point of Care testing , Tear Drop Cells Slight Normal [facility] Comment on above: Performed By: #### G LULS #### Point of Care testing , Eosinophils Auto (Bld) [#/Vo l]Ordered By: João Powell on 03-06-2024 Eosinophils (Bld) [#/Vol] N/A [facility] Eosinophils (Bld) [#/Vol] Automated eosinophil count [facility] Eosinophils/100 WBC Auto (Bl d)Ordered By: João Powell on 03-06-2024 Eosinophils/100 WBC (Bld) N/A [facility] Eosinophils/100 WBC (Bld) Automated eosinophil % [facility] Eosinophils/100 WBC Manual c nt (Bld)Ordered By: João Powell on 03-06-2024 Eosinophils/100 WBC (Bld) Eosinophils/100 leukocytes in Blood by Manual count 1-[address] [facility] Eosinophils/100 leukocytes i n Blood by Manual countOrdered By: João Powell on 03-06-2024 Eosinophils/100 WBC (Bld) 1 % Normal 1-[address] [facility] Comment on above: Performed By: #### G LULS #### Point of Care testing , Erythrocyte distribution wid th Auto (RBC) [Ratio]Ordered By: João Powell on 03-06-2024 Erythrocyte distribution width (RBC) [Ratio] Erythrocyte distribution width [Ratio] by Automated count High 12.0-14.[address] [facility] Erythrocyte distribution wid th [Ratio] by Automated countOrdered By: João Powell on 03-06-2024 Erythrocyte distribution width (RBC) [Ratio] 21.1 % High 12.0-14.[address] [facility] Comment on above: Performed By: #### G LULS #### Point of Care testing , Erythrocyte morphology findi ng [Identifier] in BloodOrdered By: João oPwell on 03-06-2024 RBC morphology finding Nom (Bld) RBC morphology [facility] Erythrocytes [#/volume] in B lood by Automated countOrdered By: João Powell on 03-06-2024 RBC (Bld) [#/Vol] 3.68 10*6/uL Low 3.90-5.60 [facility] Comment on above: Performed By: #### G LULS #### Point of Care testing , Globulin Calc (S) [Mass/Vol] Ordered By: João Powell on 03-06-2024 Globulin (S) [Mass/Vol] Serum globulin measurement by calculation (mass/volume) [facility] Glucose Glucometer (BldC) [M ass/Vol]Ordered By: João Powell on 03-06-2024 Glucose [Mass/Vol] Capillary blood gluc ose measurement by glucometer (mass/volume) [facility] Comment on above: Random Glucose Refer ence Range is dependent on time and content of last meal. Glucose of more than 200 mg/dL in a nonstressed, ambulatory subject supports the diagnosis of Diabetes Mellitus. Glucose Poct Glucometerson 1 Glucose [Mass/Vol] 128 mg/dL Normal [facility] Comment on above: Result Comment: [place] Glucose Reference Range is dependent on time and content of last meal. Glucose of more than 200 mg/dL in a nonstressed, ambulatory subject supports the diagnosis of Diabetes Mellitus. PERFORMED BY: [facility] [address] [place] [address] PATHOLOGIST SERVICE DELIVERY ANALYST CLIFFORD LOBATO M.D. Performed By: #### S CAN CBC, MG, PHOS, CMP #### [facility] [address] Glucose [Mass/volume] in Ser um or PlasmaOrdered By: João Powell on 03-06-2024 Glucose [Mass/Vol] 99 mg/dL Normal 70-100 [facility] Comment on above: ADA recommended refe rence rangeRandom Glucose Reference Range is dependent on time and content of last meal. Glucose of more than 200 mg/dL in a nonstressed, ambulatory subject supports the diagnosis of Diabetes Mellitus. Result Comment: [place] Glucose Reference Range is dependent on time and content of last meal. Glucose of more than 200 mg/dL in a nonstressed, ambulatory subject supports the diagnosis of Diabetes Mellitus. ADA recommended reference range Performed By: #### G LULS #### Point of Care testing , Glucose [Mass/Vol] Glucose [Mass/volume ] in Serum or Plasma 70-[address] [facility] Comment on above: ADA recommended refe rence rangeRandom Glucose Reference Range is dependent on time and content of last meal. Glucose of more than 200 mg/dL in a nonstressed, ambulatory subject supports the diagnosis of Diabetes Mellitus. Hematocrit Auto (Bld) [Volum e fraction]Ordered By: João Powell on 03-06-2024 Hematocrit (Bld) [Volume fraction] Hematocrit [Volume Fraction] of Blood by Automated count Low 38.8-50.[address] [facility] Hematocrit [Volume Fraction] of Blood by Automated countOrdered By: João Powell on 03-06-2024 Hematocrit (Bld) [Volume fraction] 25.8 % Low 38.8-50.[address] [facility] Comment on above: Performed By: #### G LULS #### Point of Care testing , Hemoglobin [Mass/volume] in BloodOrdered By: João Powell on 03-06-2024 Hemoglobin (Bld) [Mass/Vol] 8.3 g/dL Low 13.0-17.[address] [facility] Comment on above: Performed By: #### G LULS #### Point of Care testing , Hemoglobin (Bld) [Mass/Vol] Hemoglobin [Mass/volume] in Blood Low 13.0-17.[address] [facility] Hypochromia LM Ql (Bld)Order ed By: João Powell on 03-06-2024 Hypochromia Ql (Bld) Slight [facility] Hypochromia Ql (Bld) Hypochromia [Presen ce] in Blood by Light microscopy [facility] Leukocytes [#/volume] correc jorge for nucleated erythrocytes in Blood by Automated counOrdered By: João Powell on 03-06-2024 WBC corrected for nucl RBC Auto (Bld) [#/Vol] 6.8 10*3/uL 4.1-10.[address] [facility] WBC corrected for nucl RBC Auto (Bld) [#/Vol] Leukocytes [#/volume] corrected for nucleated erythrocytes in Blood by Automated coun 4.1-10.[address] [facility] Leukocytes [#/volume] in Blo od by Automated countOrdered By: João Powell on 03-06-2024 WBC (Bld) [#/Vol] 6.8 10*3/uL Normal 4.1-10.5 [facility] Comment on above: Performed By: #### G LULS #### Point of Care testing , Lymphocytes Auto (Bld) [#/Vo l]Ordered By: João Powell on 03-06-2024 Lymphocytes (Bld) [#/Vol] N/A [facility] Lymphocytes (Bld) [#/Vol] Lymphocytes [#/volume] in Blood by Automated count [facility] Lymphocytes/100 WBC Auto (Bl d)Ordered By: João Powell on 03-06-2024 Lymphocytes/100 WBC (Bld) N/A [facility] Lymphocytes/100 WBC (Bld) Lymphocytes/100 leukocytes in Blood by Automated count [facility] Lymphocytes/100 WBC Manual c nt (Bld)Ordered By: João Powell on 03-06-2024 Lymphocytes/100 WBC (Bld) Lymphocytes/100 leukocytes in Blood by Manual count -[address] [facility] Lymphocytes/100 leukocytes i n Blood by Manual countOrdered By: João Powell on 03-06-2024 Lymphocytes/100 WBC (Bld) 18 % Normal 18-[address] [facility] Comment on above: Performed By: #### G LULS #### Point of Care testing , MCH Auto (RBC) [Entitic mass ]Ordered By: João Powell on 03-06-2024 MCH (RBC) [Entitic mass] MCH [Entitic mass] by Automated count Low 27.5-35.[address] [facility] MCH [Entitic mass] by Automa jorge countOrdered By: João Powell on 03-06-2024 MCH (RBC) [Entitic mass] 22.4 pg Low 27.5-35.[address] [facility] Comment on above: Performed By: #### G LULS #### Point of Care testing , MCHC Auto (RBC) [Mass/Vol]Or dered By: João Powell on 03-06-2024 MCHC (RBC) [Mass/Vol] 32.0 g/dL Low 32.5-35.6 [facility] MCHC (RBC) [Mass/Vol] MCHC [Mass/volume] by Automated count Low 32.5-35.[address] [facility] MCV Auto (RBC) [Entitic vol] Ordered By: João Powell on 03-06-2024 MCV (RBC) [Entitic vol] MCV [Entitic volume] by Automated count Low 83.5-[address] [facility] MCV [Entitic volume] by Auto mated countOrdered By: João Powell on 03-06-2024 MCV (RBC) [Entitic vol] 70.2 fL Low 83.5-[address] [facility] Comment on above: Performed By: #### G LULS #### Point of Care testing , Magnesium [Mass/volume] in S ilia or PlasmaOrdered By: João Powell on 03-06-2024 Magnesium [Mass/Vol] 1.6 mg/dL Low 1.9-2.7 [facility] Comment on above: Result Comment: PERF ORMED BY: [place] [address] PATHOLOGIST SERVICE DELIVERY ANALYST CLIFFORD LOBATO M.D. Performed By: #### G LULS #### Point of Care testing , Magnesium [Mass/Vol] Magnesium [Mass/vol ume] in Serum or Plasma Low 1.9-2.[address] [facility] Manual blood segmented neutr ophils/100 leukocytesOrdered By: João Powell on 03-06-2024 Segmented neutrophils/100 WBC (Bld) 72 % High 50-[address] [facility] Comment on above: Performed By: #### G LULS #### Point of Care testing , Microcytes LM Ql (Bld)Ordere d By: João Powell on 03-06-2024 Microcytes Ql (Bld) Slight [facility] Microcytes Ql (Bld) Microcytes [Presence ] in Blood by Light microscopy [facility] Monocytes Auto (Bld) [#/Vol] Ordered By: João Powell on 03-06-2024 Monocytes (Bld) [#/Vol] N/A [facility] Monocytes (Bld) [#/Vol] Automated blood monocyte count [facility] Monocytes/100 WBC Auto (Bld) Ordered By: João Powell on 03-06-2024 Monocytes/100 WBC (Bld) N/A [facility] Monocytes/100 WBC (Bld) Automated monocyte % [facility] Monocytes/100 WBC Manual cnt (Bld)Ordered By: João Powell on 03-06-2024 Monocytes/100 WBC (Bld) Monocytes/100 leukocytes in Blood by Manual count 2-[address] [facility] Monocytes/100 leukocytes in Blood by Manual countOrdered By: João Powell on 03-06-2024 Monocytes/100 WBC (Bld) 8 % Normal 2-[address] [facility] Comment on above: Performed By: #### G LULS #### Point of Care testing , Neutrophils Auto (Bld) [#/Vo l]Ordered By: João Powell on 03-06-2024 Neutrophils (Bld) [#/Vol] N/A [facility] Neutrophils (Bld) [#/Vol] Neutrophils [#/volume] in Blood by Automated count [facility] Neutrophils/100 WBC Auto (Bl d)Ordered By: João Powell on 03-06-2024 Neutrophils/100 WBC (Bld) N/A [facility] Neutrophils/100 WBC (Bld) Automated neutrophil % [facility] No Panel InformationOrdered By: João Powell on 03-06-2024 Estimated GFR (CKD-EPI) 57.276 mL/Min [facility] Creatinine Clearance (Chem 62.[address] [facility] 57.276 mL/Min [facility] 62.[address] [facility] Nucleated erythrocytes [Pres ence] in Blood by Automated countOrdered By: João Powell on 03-06-2024 Nucleated RBC Auto Ql (Bld) N/A [facility] Nucleated RBC Auto Ql (Bld) Nucleated erythrocytes [Presence] in Blood by Automated count [facility] Phosphate [Mass/volume] in S ilia or PlasmaOrdered By: João Powell on 03-06-2024 Phosphate [Mass/Vol] 3.2 mg/dL Normal 2.5-4.5 [facility] Comment on above: Performed By: #### G LULS #### Point of Care testing , Phosphate [Mass/Vol] Phosphate [Mass/vol ume] in Serum or Plasma 2.5-4.[address] [facility] Platelet adequacy [Presence] in Blood by Light microscopyOrdered By: João Powell on 03-06-2024 Platelets LM Ql (Bld) Normal Normal [facility] Platelets LM Ql (Bld) Platelet adequacy [Presence] in Blood by Light microscopy Normal [facility] Platelet mean volume Auto (B ld) [Entitic vol]Ordered By: João Powell on 03-06-2024 Platelet mean volume (Bld) [Entitic vol] Platelet mean volume [Entitic volume] in Blood by Automated count 6.6-10.[address] [facility] Platelet mean volume [Entiti c volume] in Blood by Automated countOrdered By: João Powell on 03-06-2024 Platelet mean volume (Bld) [Entitic vol] 8.1 fL Normal 6.6-10.[address] [facility] Comment on above: Performed By: #### G LULS #### Point of Care testing , Platelet morphology finding [Identifier] in BloodOrdered By: João Powell on 03-06-2024 Platelet morphology finding Nom (Bld) N/A [facility] Platelet morphology finding Nom (Bld) Platelet morphology finding [Identifier] in Blood [facility] Platelets Auto (Bld) [#/Vol] Ordered By: João Powell on 03-06-2024 Platelets (Bld) [#/Vol] Platelets [#/volume] in Blood by Automated count 150-[address] [facility] Platelets Large [Presence] i n Blood by Light microscopyOrdered By: João Powell on 03-06-2024 Platelets Large LM Ql (Bld) Slight [facility] Platelets Large LM Ql (Bld) Platelets Large [Presence] in Blood by Light microscopy [facility] Platelets [#/volume] in Bloo d by Automated countOrdered By: João Powell on 03-06-2024 Platelets (Bld) [#/Vol] 325 10*3/uL Normal 150-[address] [facility] Comment on above: Performed By: #### G LULS #### Point of Care testing , Polychromasia [Presence] in Blood by Light microscopyOrdered By: João Powell on 03-06-2024 Polychromasia LM Ql (Bld) Slight [facility] Polychromasia LM Ql (Bld) Polychromasia [Presence] in Blood by Light microscopy [facility] Potassium [Moles/volume] in Serum or PlasmaOrdered By: João Powell on 03-06-2024 Potassium [Moles/Vol] 4.2 mmol/L Normal 3.5-5.1 [facility] Comment on above: Performed By: #### G LULS #### Point of Care testing , Potassium [Moles/Vol] Potassium [Moles/v olume] in Serum or Plasma 3.5-5.[address] [facility] Protein [Mass/volume] in Ser um or PlasmaOrdered By: João Powell on 03-06-2024 Protein [Mass/Vol] 6.1 g/dL Low 6.4-8.9 [facility] Comment on above: Performed By: #### G LULS #### Point of Care testing , Protein [Mass/Vol] Protein [Mass/volume ] in Serum or Plasma Low 6.4-8.[address] [facility] RBC Auto (Bld) [#/Vol]Ordere d By: João Powell on 03-06-2024 RBC (Bld) [#/Vol] Erythrocytes [#/volu me] in Blood by Automated count Low 3.90-5.[address] [facility] RBC morphologyOrdered By: Derek Powell on 03-06-2024 RBC morphology finding Nom (Bld) N/A [facility] Segmented neutrophils/100 WB C Manual cnt (Bld)Ordered By: João Powell on 03-06-2024 Segmented neutrophils/100 WBC (Bld) Manual blood segmented neutrophils/100 leukocytes High 50-[address] [facility] Serum globulin measurement b y calculation (mass/volume)Ordered By: João Powell on 03-06-2024 Globulin (S) [Mass/Vol] 2.8 g/dL Normal [facility] Comment on above: Performed By: #### G LULS #### Point of Care testing , Serum or plasma albumin/glob ulin mass ratioOrdered By: João Powell on 03-06-2024 Albumin/Globulin [Mass ratio] 1.2 {ratio} Normal [facility] Comment on above: Performed By: #### G LULS #### Point of Care testing , Albumin/Globulin [Mass ratio] Serum or plasma albumin/globulin mass ratio [facility] Serum or plasma anion gap de terminationOrdered By: João Powell on 03-06-2024 Anion gap [Moles/Vol] 9.9 mmol/L Normal 6.0-15.0 [facility] Comment on above: Performed By: #### G LULS #### Point of Care testing , Anion gap [Moles/Vol] Serum or plasma an ion gap determination 6.0-15.[address] [facility] Sodium [Moles/volume] in Ser um or PlasmaOrdered By: João Powell on 03-06-2024 Sodium [Moles/Vol] 137 mmol/L Normal 136-145 [facility] Comment on above: Performed By: #### G LULS #### Point of Care testing , Sodium [Moles/Vol] Sodium [Moles/volume ] in Serum or Plasma 136-[address] [facility] Teardrop cell detectionOrder ed By: João Powell on 03-06-2024 Dacrocytes LM Ql (Bld) Slight [facility] Urea nitrogen [Mass/volume] in Serum or PlasmaOrdered By: João Powell on 03-06-2024 Urea nitrogen [Mass/Vol] 17 mg/dL Normal 12-[address] [facility] Comment on above: Performed By: #### G LULS #### Point of Care testing , Urea nitrogen [Mass/Vol] Urea nitrogen [Mass/volume] in Serum or Plasma 12-[address] [facility] WBC Auto (Bld) [#/Vol]Ordere d By: João Powell on 03-06-2024 WBC (Bld) [#/Vol] Leukocytes [#/volume ] in Blood by Automated count 4.1-10.[address] [facility] Complete Blood Count Auto Di ffon 03-05-2024 Basophils (Bld) [#/Vol] 0.1 10*3/uL Normal 0.0-0.2 [facility] Comment on above: Result Comment: PERF ORMED BY: [facility] [address] [place] [address] PATHOLOGIST SERVICE DELIVERY ANALYST CLIFFORD LOBATO M.D. Performed By: #### G LULS #### Point of Care testing , Basophils/100 WBC (Bld) 1.1 % Normal . [facility] Comment on above: Performed By: #### G LULS #### Point of Care testing , Eosinophils (Bld) [#/Vol] 0.2 10*3/uL Normal 0.0-0.45 [facility] Comment on above: Performed By: #### G LULS #### Point of Care testing , Eosinophils/100 WBC (Bld) 2.8 % Normal . [facility] Comment on above: Performed By: #### G LULS #### Point of Care testing , Erythrocyte distribution width (RBC) [Ratio] 21.4 % High 12.0-14.8 [facility] Comment on above: Performed By: #### G LULS #### Point of Care testing , Hematocrit (Bld) [Volume fraction] 26.8 % Low 38.8-50.0 [facility] Comment on above: Performed By: #### G LULS #### Point of Care testing , Hemoglobin (Bld) [Mass/Vol] 8.6 g/dL Low 13.0-17.0 [facility] Comment on above: Performed By: #### G LULS #### Point of Care testing , Lymphocytes (Bld) [#/Vol] 1.3 10*3/uL Normal 1.00-4.8 [facility] Comment on above: Performed By: #### G LULS #### Point of Care testing , Lymphocytes/100 WBC (Bld) 16.1 % Normal . [facility] Comment on above: Performed By: #### G LULS #### Point of Care testing , MCH (RBC) [Entitic mass] 22.4 pg Low 27.5-35.2 [facility] Comment on above: Performed By: #### G LULS #### Point of Care testing , MCV (RBC) [Entitic vol] 70.1 fL Low 83.5-101 [facility] Comment on above: Performed By: #### G LULS #### Point of Care testing , Mean Corpuscular HGB Conc 31.9 g/dL Low 32.5-35.6 [facility] Comment on above: Performed By: #### G LULS #### Point of Care testing , Monocytes (Bld) [#/Vol] 1.0 10*3/uL High 0.0-0.8 [facility] Comment on above: Performed By: #### G LULS #### Point of Care testing , Monocytes/100 WBC (Bld) 12.4 % Normal . [facility] Comment on above: Performed By: #### G LULS #### Point of Care testing , Neutrophils (Bld) [#/Vol] 5.6 10*3/uL Normal 1.8-7.7 [facility] Comment on above: Performed By: #### G LULS #### Point of Care testing , Neutrophils/100 WBC (Bld) 67.6 % Normal . [facility] Comment on above: Performed By: #### G LULS #### Point of Care testing , NRBC% 0.0 /100{WBC} Normal 0-0.5 [facility] Comment on above: Performed By: #### G LULS #### Point of Care testing , Platelet mean volume (Bld) [Entitic vol] 7.9 fL Normal 6.6-10.1 [facility] Comment on above: Performed By: #### G LULS #### Point of Care testing , Platelets (Bld) [#/Vol] 361 10*3/uL Normal 150-450 [facility] Comment on above: Performed By: #### G LULS #### Point of Care testing , RBC (Bld) [#/Vol] 3.83 10*6/uL Low 3.90-5.60 [facility] Comment on above: Performed By: #### G LULS #### Point of Care testing , WBC (Bld) [#/Vol] 8.3 10*3/uL Normal 4.1-10.5 [facility] Comment on above: Performed By: #### G LULS #### Point of Care testing , Comprehensive Metabolic Pane guy 03-05-2024 Albumin [Mass/Vol] 3.3 g/dL Low 3.5-5.7 [facility] Comment on above: Performed By: #### G LULS #### Point of Care testing , Albumin/Globulin [Mass ratio] 1.2 {ratio} Normal [facility] Comment on above: Performed By: #### G LULS #### Point of Care testing , ALP [Catalytic activity/Vol] 98 U/L Normal 34-104 [facility] Comment on above: Performed By: #### G LULS #### Point of Care testing , ALT [Catalytic activity/Vol] 10 U/L Normal 7-52 [facility] Comment on above: Performed By: #### G LULS #### Point of Care testing , Anion gap [Moles/Vol] 9.9 mmol/L Normal 6.0-15.0 [facility] Comment on above: Performed By: #### G LULS #### Point of Care testing , AST [Catalytic activity/Vol] 14 U/L Normal 13-39 [facility] Comment on above: Performed By: #### G ADRIANLS #### Point of Care testing , Bilirubin [Mass/Vol] 0.3 mg/dL Normal 0.3-1.0 [facility] Comment on above: Performed By: #### G ADRIANLS #### Point of Care testing , Calcium [Mass/Vol] 8.6 mg/dL Normal 8.6-10.3 [facility] Comment on above: Performed By: #### G LULS #### Point of Care testing , Chloride [Moles/Vol] 107 mmol/L Normal 98-107 [facility] Comment on above: Performed By: #### G LULS #### Point of Care testing , CO2 [Moles/Vol] 25.2 mmol/L Normal 21.0-31.0 [facility] Comment on above: Performed By: #### G LULS #### Point of Care testing , Creatinine [Mass/Vol] 1.49 mg/dL High 0.70-1.30 [facility] Comment on above: Performed By: #### G LULS #### Point of Care testing , Creatinine Clr Calc Pharmacy 59.31 Normal [facility] Comment on above: Performed By: #### G LULS #### Point of Care testing , GFR/1.73 sq M.predicted MDRD (S/P/Bld) [Vol rate/Area] 54.062 mL/min/{1.73_m2} Normal [facility] Comment on above: Performed By: #### G LULS #### Point of Care testing , Globulin (S) [Mass/Vol] 2.8 g/dL Normal [facility] Comment on above: Performed By: #### G LULS #### Point of Care testing , Glucose [Mass/Vol] 105 mg/dL High 70-100 [facility] Comment on above: Result Comment: [place] om Glucose Reference Range is dependent on time and content of last meal. Glucose of more than 200 mg/dL in a nonstressed, ambulatory subject supports the diagnosis of Diabetes Mellitus. ADA recommended reference range Performed By: #### G LULS #### Point of Care testing , Potassium [Moles/Vol] 4.1 mmol/L Normal 3.5-5.1 [facility] Comment on above: Performed By: #### G LULS #### Point of Care testing , Protein [Mass/Vol] 6.1 g/dL Low 6.4-8.9 [facility] Comment on above: Performed By: #### G LULS #### Point of Care testing , Sodium [Moles/Vol] 138 mmol/L Normal 136-145 [facility] Comment on above: Performed By: #### G LULS #### Point of Care testing , Urea nitrogen [Mass/Vol] 24 mg/dL Normal 7-25 [facility] Comment on above: Performed By: #### G LULS #### Point of Care testing , Glucose Poct Glucometerson 1 Glucose [Mass/Vol] 151 mg/dL Normal [facility] Comment on above: Result Comment: [place] Glucose Reference Range is dependent on time and content of last meal. Glucose of more than 200 mg/dL in a nonstressed, ambulatory subject supports the diagnosis of Diabetes Mellitus. PERFORMED BY: [facility] [place] [address] PATHOLOGIST SERVICE DELIVERY ANALYST CLIFFORD LOBATO M.D. Performed By: #### G LULS #### Point of Care testing , Glucose [Mass/Vol] 106 mg/dL Normal [facility] Comment on above: Result Comment: [place] Glucose Reference Range is dependent on time and content of last meal. Glucose of more than 200 mg/dL in a nonstressed, ambulatory subject supports the diagnosis of Diabetes Mellitus. PERFORMED BY: [place] [address] PATHOLOGIST SERVICE DELIVERY ANALYST CLIFFORD LOBATO M.D. Performed By: #### S CAN CBC, MG, PHOS, CMP #### [address] Glucose [Mass/Vol] 132 mg/dL Normal [facility] Comment on above: Result Comment: [place] Glucose Reference Range is dependent on time and content of last meal. Glucose of more than 200 mg/dL in a nonstressed, ambulatory subject supports the diagnosis of Diabetes Mellitus. PERFORMED BY: [place] [address] PATHOLOGIST SERVICE DELIVERY ANALYST CLIFFORD LOBATO M.D. Performed By: #### S CAN CBC, MG, PHOS, CMP #### [address] Commemt1 Glu2: Cleaned Meter Normal [facility] Comment on above: Result Comment: PERF ORMED BY: [place] [address] PATHOLOGIST SERVICE DELIVERY ANALYST CLIFFORD LOBATO M.D. Performed By: #### S CAN CBC, MG, PHOS, CMP #### [address] Glucose [Mass/Vol] 151 mg/dL Normal [facility] Comment on above: Result Comment: [place] Glucose Reference Range is dependent on time and content of last meal. Glucose of more than 200 mg/dL in a nonstressed, ambulatory subject supports the diagnosis of Diabetes Mellitus. Performed By: #### S CAN CBC, MG, PHOS, CMP #### [address] [address] [facility] Magnesiumon 03-05-2024 Magnesium [Mass/Vol] 1.4 mg/dL Low 1.9-2.7 [facility] Comment on above: Result Comment: PERF ORMED BY: [place] [id number] PATHOLOGIST SERVICE DELIVERY ANALYST CLIFFORD LOBATO M.D. Performed By: #### G LULS #### Point of Care testing , No Panel InformationOrdered By: João Powell on 03-05-2024 Bedside Glucose Comment Glu2: cleaned meter [facility] Glu2: cleaned meter [facility] Phosphoruson 03-05-2024 Phosphate [Mass/Vol] 3.1 mg/dL Normal 2.5-4.5 [facility] Comment on above: Performed By: #### G LULS #### Point of Care testing , US carotid doppler BIon 10-0 US carotid doppler BI [facility] [place] [address] [place], [place] [id number] Ultrasound Report Signed Patient: Myra Pickard SR MR#: [id number] : 1965 Acct:[id number] Age/Sex: 58 / M ADM Date: 03/04/24 Loc: Room: [address] [place] [address] Type: ADM IN Attending Dr: João Powell [...] Sudeep North M.D.03/05/2024 10:21 AM Dictation Location: [place] [address] Tech: Marybel Savage Transcribed By: BOB 03/05/24 1021 Dictated By: Sudeep North MD 03/05/24 1019 Signed By: 03/05/24 1021 Normal [facility] ABO/Rh Retypeon 03-04-2024 ABO/RH Recheck Result Positive Normal [facility] Comment on above: Result Comment: PERF ORMED BY: [facility] [address] [place] [address] PATHOLOGIST SERVICE DELIVERY ANALYST CLIFFORD LOBATO M.D. Comprehensive Metabolic Pane guy 03-04-2024 Albumin [Mass/Vol] 3.3 g/dL Low 3.5-5.7 [facility] Comment on above: Performed By: #### S CAN CBC, MG, PHOS, CMP #### [address] Albumin/Globulin [Mass ratio] 1.1 {ratio} Normal [facility] Comment on above: Performed By: #### S CAN CBC, MG, PHOS, CMP #### [address] ALP [Catalytic activity/Vol] 105 U/L High 34-104 [facility] Comment on above: Performed By: #### S CAN CBC, MG, PHOS, CMP #### [address] ALT [Catalytic activity/Vol] 9 U/L Normal 7-52 [facility] Comment on above: Performed By: #### S CAN CBC, MG, PHOS, CMP #### [address] Anion gap [Moles/Vol] 11.1 mmol/L Normal 6.0-15.0 [facility] Comment on above: Performed By: #### S CAN CBC, MG, PHOS, CMP #### [address] AST [Catalytic activity/Vol] 11 U/L Low 13-39 [facility] Comment on above: Performed By: #### S CAN CBC, MG, PHOS, CMP #### [address] Bilirubin [Mass/Vol] 0.2 mg/dL Low 0.3-1.0 [facility] Comment on above: Performed By: #### S CAN CBC, MG, PHOS, CMP #### [address] Calcium [Mass/Vol] 8.3 mg/dL Low 8.6-10.3 [facility] Comment on above: Performed By: #### S CAN CBC, MG, PHOS, CMP #### [place] [address] [place] Chloride [Moles/Vol] 104 mmol/L Normal 98-107 [facility] Comment on above: Performed By: #### S CAN CBC, MG, PHOS, CMP #### [address] CO2 [Moles/Vol] 27.6 mmol/L Normal 21.0-31.0 [facility] Comment on above: Performed By: #### S CAN CBC, MG, PHOS, CMP #### [address] Creatinine [Mass/Vol] 1.83 mg/dL High 0.70-1.30 [facility] Comment on above: Performed By: #### S CAN CBC, MG, PHOS, CMP #### [address] Creatinine Clr Calc Pharmacy 48.29 Normal [facility] Comment on above: Performed By: #### S CAN CBC, MG, PHOS, CMP #### [address] GFR/1.73 sq M.predicted MDRD (S/P/Bld) [Vol rate/Area] 42.245 mL/min/{1.73_m2} Normal [facility] Comment on above: Performed By: #### S CAN CBC, MG, PHOS, CMP #### [address] Globulin (S) [Mass/Vol] 2.9 g/dL Normal [facility] Comment on above: Performed By: #### S CAN CBC, MG, PHOS, CMP #### [address] Glucose [Mass/Vol] 150 mg/dL High 70-100 [facility] Comment on above: Result Comment: [facility] [place][note 2] Glucose Reference Range is dependent on time and content of last meal. Glucose of more than 200 mg/dL in a nonstressed, ambulatory subject supports the diagnosis of Diabetes Mellitus. ADA recommended reference range Performed By: #### S CAN CBC, MG, PHOS, CMP #### [address] [address] [place] Potassium [Moles/Vol] 3.7 mmol/L Normal 3.5-5.1 [facility] Comment on above: Performed By: #### S CAN CBC, MG, PHOS, CMP #### [facility] [address] Protein [Mass/Vol] 6.2 g/dL Low 6.4-8.9 [facility] Comment on above: Performed By: #### S CAN CBC, MG, PHOS, CMP #### [address] Sodium [Moles/Vol] 139 mmol/L Normal 136-145 [facility] Comment on above: Performed By: #### S CAN CBC, MG, PHOS, CMP #### [address] Urea nitrogen [Mass/Vol] 36 mg/dL High 7-25 [facility] Comment on above: Performed By: #### S CAN CBC, MG, PHOS, CMP #### [facility] [address] [place] [address] ECH echo transthoracicon ECH echo transthoracic [facility] [place] [address] [place] [address] Echocardiogram Signed Patient: Myra Pickard SR MR#: [id number] : 1965 Acct:[id number] Age/Sex: 58 / M ADM Date: 03/03/24 Loc: Room: [address] [place] [address] Type: ADM INOo Attending Dr: João Powell [...] History: PVD, Lung nodule, HTN, CKD, Afib, ID, HLD, DM, CHF, Smoker + -+ Interpretation [...] By: Maribel Garcia DO 03/04/24 1624 Normal [facility] Ferritinon 03-04-2024 Ferritin Normal 23.9-336.2 [facility] Comment on above: Order Comment: Comme nt add Result Comment: Spec imen hemolyzed, redraw requested Performed By: #### G NELI #### Point of Care testing , Ferritin [Mass/volume] in Se rum or PlasmaOrdered By: João Powell on 03-04-2024 Ferritin [Mass/Vol] 7.7 ng/mL Low 23.9-336.2 [facility] Ferritin [Mass/Vol] Ferritin [Mass/volum e] in Serum or Plasma Low 23.9-336.[address] [facility] Folate [Mass/volume] in Seru m or PlasmaOrdered By: João Powell on 03-04-2024 Folate [Mass/Vol] 7.8 ng/mL >5.9 [facility] Comment on above: Folate reference ran ge: >5.9 ng/mlThe WHO technical consultation on folate and vitamin [id number] has determined that folate concentrations lessthan 4 ng/ml are considered deficient. Folate [Mass/Vol] Folate [Mass/volume] in Serum or Plasma >5.[address] [facility] Comment on above: Folate reference ran ge: >5.9 ng/mlThe WHO technical consultation on folate and vitamin [id number] has determined that folate concentrations lessthan 4 ng/ml are considered deficient. Glucose Poct Glucometerson 0 03-04-2024 Commemt1 Glu2: Cleaned Meter Normal [facility] Comment on above: Result Comment: PERF ORMED BY: [facility] [address] [place] [address] PATHOLOGIST SERVICE DELIVERY ANALYST CLIFFORD LOBATO M.D. Performed By: #### S CAN CBC, MG, PHOS, CMP #### [facility] [address] [place] [address] [place] Glucose [Mass/Vol] 213 mg/dL Normal [facility] Comment on above: Result Comment: [place] om Glucose Reference Range is dependent on time and content of last meal. Glucose of more than 200 mg/dL in a nonstressed, ambulatory subject supports the diagnosis of Diabetes Mellitus. Performed By: #### S CAN CBC, MG, PHOS, CMP #### [facility] [address] Glucose [Mass/Vol] 279 mg/dL Normal [facility] Comment on above: Result Comment: [place] om Glucose Reference Range is dependent on time and content of last meal. Glucose of more than 200 mg/dL in a nonstressed, ambulatory subject supports the diagnosis of Diabetes Mellitus. PERFORMED BY: [place] [address] PATHOLOGIST SERVICE DELIVERY ANALYST CLIFFORD LOBATO M.D. Performed By: #### G LULS #### Point of Care testing , Glucose [Mass/Vol] 236 mg/dL Normal [facility] Comment on above: Result Comment: [place] Glucose Reference Range is dependent on time and content of last meal. Glucose of more than 200 mg/dL in a nonstressed, ambulatory subject supports the diagnosis of Diabetes Mellitus. PERFORMED BY: [place] [address] PATHOLOGIST SERVICE DELIVERY ANALYST CLIFFORD LOBATO M.D. Performed By: #### G LULS #### Point of Care testing , Glucose [Mass/Vol] 242 mg/dL Normal [facility] Comment on above: Result Comment: [place] Glucose Reference Range is dependent on time and content of last meal. Glucose of more than 200 mg/dL in a nonstressed, ambulatory subject supports the diagnosis of Diabetes Mellitus. PERFORMED BY: [address] [place] [address] PATHOLOGIST SERVICE DELIVERY ANALYST CLIFFORD LOBATO M.D. Performed By: #### G LULS #### Point of Care testing , Iron [Mass/volume] in Serum or PlasmaOrdered By: João Powell on 03-04-2024 Iron [Mass/Vol] 13 ug/dL Low 50-[address] [facility] Comment on above: Order Comment: Comme nt add Performed By: #### S CAN CBC, MG, PHOS, CMP #### [facility] [address] [place] [address] [place] Iron [Mass/Vol] Iron [Mass/volume] i n Serum or Plasma Low 50-[address] [facility] Iron and TIBC Profileon 02-05 % Iron Saturation 3.2 % Low 20-50 [facility] Comment on above: Order Comment: Comme nt add Performed By: #### S CAN CBC, MG, PHOS, CMP #### [facility] [address] [place], [place] [address] Total Iron Binding Capacity 403 ug/dL Normal 255-450 [facility] Comment on above: Order Comment: Comme nt add Performed By: #### S CAN CBC, MG, PHOS, CMP #### [facility] [address] Iron binding capacity [Mass/ volume] in Serum or PlasmaOrdered By: João Powell on 03-04-2024 Iron binding capacity [Mass/Vol] 403 ug/dL 255-[address] [facility] Iron saturation [Mass Fracti on] in Serum or PlasmaOrdered By: João Powell on 03-04-2024 Iron saturation [Mass fraction] 3.2 % Low 20-[address] [facility] LeukoReduced RBCon LeukoReduced RBC TRANSFUSED 03/04/24 1657 Normal [facility] MR angio MR brain w/oon 02-05 MR angio MR brain w/o [facility] [place] [address] [place] [address] MRI Report Signed Patient: Myra Pickard SR MR#: [id number] : 1965 Acct:[id number] Age/Sex: 58 / M ADM Date: 03/03/24 Loc: Room: 2K7422-9 Type: ADM INOo Attending Dr: João Powell MD Copies to: João Powell MD Ordering Provider: João Powell MD Date of Service: 03/04/24 MR/MR angio MR brain w/o: syncope and tremors MRA OF THE INTRACRANIAL CIRCULATION TECHNIQUE: 3-D [id number] imaging of the [place] obtained. HISTORY: Syncope. Lightheadedness. Altered [...] No acute intracranial process. Impression dictated by: Sudepe Lind M.D.03/04/2024 9:07 PM Dictation Location: [place] [address] Transcribed By: [facility] 03/04/242106 Dictated By: Sudeep Lind DO 03/04/242055 Signed By: 03/04/242106 Normal [facility] Magnesiumon 03-04-2024 Magnesium [Mass/Vol] 1.3 mg/dL Low 1.9-2.7 [facility] Comment on above: Result Comment: PERF ORMED BY: [place] [address] PATHOLOGIST SERVICE DELIVERY ANALYST CLIFFORD LOBATO M.D. Performed By: #### S CAN CBC, MG, PHOS, CMP #### [address] Ovalocyte detectionOrdered B y: João Powell on 03-04-2024 Ovalocytes LM Ql (Bld) Slight [facility] Ovalocytes [Presence] in Blo od by Light microscopyOrdered By: João Powell on 03-04-2024 Ovalocytes LM Ql (Bld) Ovalocyte detection [facility] Phosphoruson 03-04-2024 Phosphate [Mass/Vol] 3.5 mg/dL Normal 2.5-4.5 [facility] Comment on above: Performed By: #### S CAN CBC, MG, PHOS, CMP #### [facility] [address] [place] [address] [place] Redraw Ferritinon 03-04-2024 Redraw Ferritin 7.7 ng/mL Low 23.9-336.2 [facility] Comment on above: Performed By: #### G LULS #### Point of Care testing , Redraw Folateon 03-04-2024 Redraw Folate 7.8 ng/mL Normal >5.9 [facility] Comment on above: Result Comment: Aure te reference range: >5.9 ng/ml The WHO technical consultation on folate and vitamin b12 deficiencies has determined that folate concentrations less than 4 ng/ml are considered deficient. Performed By: #### G LULS #### Point of Care testing , Scan and CBCon 03-04-2024 Anisocytosis Ql (Bld) Moderate Normal [facility] Comment on above: Performed By: #### S CAN CBC, MG, PHOS, CMP #### [facility] [address] [place] [address] [place] Basophils (Bld) [#/Vol] 0.1 10*3/uL Normal 0.0-0.2 [facility] Comment on above: Performed By: #### S CAN CBC, MG, PHOS, CMP #### [facility] [address] [place] [address] [place] Basophils/100 WBC (Bld) 2.4 % Normal . [facility] Comment on above: Performed By: #### S CAN CBC, MG, PHOS, CMP #### [facility] [address] [place] [address] [place] Eosinophils (Bld) [#/Vol] 0.2 10*3/uL Normal 0.0-0.45 [facility] Comment on above: Performed By: #### S CAN CBC, MG, PHOS, CMP #### [address] Eosinophils/100 WBC (Bld) 3.6 % Normal . [facility] Comment on above: Performed By: #### S CAN CBC, MG, PHOS, CMP #### [address] Erythrocyte distribution width (RBC) [Ratio] 20.8 % High 12.0-14.8 [facility] Comment on above: Performed By: #### S CAN CBC, MG, PHOS, CMP #### [address] Hematocrit (Bld) [Volume fraction] 23.7 % Low 38.8-50.0 [facility] Comment on above: Performed By: #### S CAN CBC, MG, PHOS, CMP #### [address] Hemoglobin (Bld) [Mass/Vol] 7.4 g/dL Low 13.0-17.0 [facility] Comment on above: Performed By: #### S CAN CBC, MG, PHOS, CMP #### [address] Hypochromasia Slight Normal [facility] Comment on above: Performed By: #### S CAN CBC, MG, PHOS, CMP #### [address] Lymphocytes (Bld) [#/Vol] 1.3 10*3/uL Normal 1.00-4.8 [facility] Comment on above: Performed By: #### S CAN CBC, MG, PHOS, CMP #### [address] Lymphocytes/100 WBC (Bld) 22.8 % Normal . [facility] Comment on above: Performed By: #### S CAN CBC, MG, PHOS, CMP #### [address] MCH (RBC) [Entitic mass] 21.8 pg Low 27.5-35.2 [facility] Comment on above: Performed By: #### S CAN CBC, MG, PHOS, CMP #### [address] MCV (RBC) [Entitic vol] 69.5 fL Low 83.5-101 [facility] Comment on above: Performed By: #### S CAN CBC, MG, PHOS, CMP #### [address] Mean Corpuscular HGB Conc 31.3 g/dL Low 32.5-35.6 [facility] Comment on above: Performed By: #### S CAN CBC, MG, PHOS, CMP #### [address] Monocytes (Bld) [#/Vol] 0.9 10*3/uL High 0.0-0.8 [facility] Comment on above: Performed By: #### S CAN CBC, MG, PHOS, CMP #### [address] Monocytes/100 WBC (Bld) 16.7 % Normal . [facility] Comment on above: Performed By: #### S CAN CBC, MG, PHOS, CMP #### [address] Neutrophils (Bld) [#/Vol] 3.0 10*3/uL Normal 1.8-7.7 [facility] Comment on above: Performed By: #### S CAN CBC, MG, PHOS, CMP #### [address] Neutrophils/100 WBC (Bld) 54.5 % Normal . [facility] Comment on above: Performed By: #### S CAN CBC, MG, PHOS, CMP #### [address] NRBC% 0.3 /100{WBC} Normal 0-0.5 [facility] Comment on above: Performed By: #### S CAN CBC, MG, PHOS, CMP #### [address] Ovalocytes Slight Normal [facility] Comment on above: Performed By: #### S CAN CBC, MG, PHOS, CMP #### [address] Platelet Estimate Normal Normal Normal [facility] Comment on above: Performed By: #### S CAN CBC, MG, PHOS, CMP #### [address] Platelet mean volume (Bld) [Entitic vol] 8.2 fL Normal 6.6-10.1 [facility] Comment on above: Performed By: #### S CAN CBC, MG, PHOS, CMP #### [address] Platelet Morphology Normal Normal Normal [facility] Comment on above: Result Comment: PERF ORMED BY: [place] [address] PATHOLOGIST SERVICE DELIVERY ANALYST CLIFFORD LOBATO M.D. Performed By: #### S CAN CBC, MG, PHOS, CMP #### [address] Platelets (Bld) [#/Vol] 394 10*3/uL Normal 150-450 [facility] Comment on above: Performed By: #### S CAN CBC, MG, PHOS, CMP #### [address] Polychromasia Slight Normal [facility] Comment on above: Performed By: #### S CAN CBC, MG, PHOS, CMP #### [address] RBC (Bld) [#/Vol] 3.41 10*6/uL Low 3.90-5.60 [facility] Comment on above: Performed By: #### S CAN CBC, MG, PHOS, CMP #### [facility] [address] WBC (Bld) [#/Vol] 5.5 10*3/uL Normal 4.1-10.5 [facility] Comment on above: Performed By: #### S CAN CBC, MG, PHOS, CMP #### [facility] [address] Serum or plasma iron binding capacity measurement (mass/volume)Ordered By: João Powell on 03-04-2024 Iron binding capacity [Mass/Vol] Iron binding capacity [Mass/volume] in Serum or Plasma 255-[address] [facility] Serum or plasma iron saturat ion measurement (mass fraction)Ordered By: João Powell on 03-04-2024 Iron saturation [Mass fraction] Iron saturation [Mass Fraction] in Serum or Plasma Low 20-[address] [facility] Thyroid Stimulating Hormoneo n 03-04-2024 Thyroid Stimulating Hormone Normal 0.45-5.33 [facility] Comment on above: Order Comment: Comme nt add Result Comment: Spec imen hemolyzed, redraw requested PERFORMED BY: [place] [address] PATHOLOGIST SERVICE DELIVERY ANALYST CLIFFORD LOBATO M.D. Performed By: #### G LULS #### Point of Care testing , Thyrotropin [Units/volume] i n Serum or PlasmaOrdered By: João Powell on 03-04-2024 TSH Qn 2.90 m[IU]/L Normal 0.45-5.[address] [facility] Comment on above: Result Comment: PERF ORMED BY: [place] [address] PATHOLOGIST SERVICE DELIVERY ANALYST CLIFFORD LOBATO M.D. Performed By: #### G LULS #### Point of Care testing , TSH Qn Thyrotropin [Units/volume] in Serum or Plasma 0.45-5.[address] [facility] Transferrin [Mass/volume] in Serum or PlasmaOrdered By: João Powell on 03-04-2024 Transferrin [Mass/Vol] 288 mg/dL Normal 203-362 [facility] Comment on above: Order Comment: Comme nt add Performed By: #### S CAN CBC, MG, PHOS, CMP #### [place] [id number] [facility] Transferrin [Mass/Vol] Transferrin [Mass /volume] in Serum or Plasma - [facility] Type and Screenon 03-04-2024 ABO and Rh group Nom (Bld) Blood group O Rh(D) positive Normal [facility] Comment on above: Order Comment: Numbe r of units to transfuse now? 1 Result Comment: PERF ORMED BY: [place] [id number] PATHOLOGIST SERVICE DELIVERY ANALYST CLIFFORD LOBATO M.D. Vit. B12/Folate Profileon Folate Normal >5.9 [facility] Comment on above: Order Comment: Comme nt add Result Comment: Spec imen hemolyzed, redraw requested Folate reference range: >5.9 ng/ml The WHO technical consultation on folate and vitamin b12 deficiencies has determined that folate concentrations less than 4 ng/ml are considered deficient. PERFORMED BY: [address] [address] PATHOLOGIST SERVICE DELIVERY ANALYST CLIFFORD LOBATO M.D. Performed By: #### G LULS #### Point of Care testing , Vitamin B12 Normal 180-4 [facility] Comment on above: Order Comment: Comme nt add Result Comment: Spec imen hemolyzed, redraw requested Performed By: #### G LULS #### Point of Care testing , Vitamin B12 ser/plasOrdered By: João Powell on 03-04-2024 Cobalamin (Vitamin B12) [Mass/Vol] 170 pg/mL Low 180-[address] [facility] Comment on above: Performed By: #### G LULS #### Point of Care testing , Cobalamin (Vitamin B12) [Mass/Vol] Vitamin B12 ser/plas Low 180-[address] [facility] XR knee RT 2Von 03-04-2024 XR knee RT 2V [facility] [place] [address] XRay Report Signed Patient: Myra Pickard SR MR#: [id number] : 1965 Acct:[id number] Age/Sex: 58 / M ADM Date: 03/03/24 Loc: Room: [address] [place] [address] Type: ADM INOo Attending Dr: João Powell [...] Sudeep Lind M.D.03/04/2024 5:02 PM Dictation Location: [place] [address] Transcribed By: [facility] 03/04/241701 Dictated By: Sudeep Lind DO 03/04/241700 Signed By: 03/04/241701 Normal [facility] Anisocytosis [Presence] in B lood by Light microscopyOrdered By: Kait Dan on 03-03-2024 Anisocytosis Ql (Bld) Marked Normal [facility] Comment on above: Performed By: #### S CAN CBC, MG, PHOS, CMP #### [facility] [address] [place] [address] Appearance of UrineOrdered B y: Kait Dan on 03-03-2024 Appearance (U) Urine appearance Clear [facility] Automated basophil %Ordered By: Kait Dan on 03-03-2024 Basophils/100 WBC (Bld) 1.7 % Normal . [facility] Comment on above: Performed By: #### S CAN CBC, MG, PHOS, CMP #### [address] Automated basophil countOrde red By: Kait Dan on 03-03-2024 Basophils (Bld) [#/Vol] 0.1 10*3/uL Normal 0.0-0.[address] [facility] Comment on above: Performed By: #### S CAN CBC, MG, PHOS, CMP #### [address] Automated blood monocyte cou ntOrdered By: Kait Dan on 03-03-2024 Monocytes (Bld) [#/Vol] 0.8 10*3/uL Normal 0.0-0.[address] [facility] Comment on above: Performed By: #### S CAN CBC, MG, PHOS, CMP #### [address] Automated eosinophil %Ordere d By: Kait Dan on 03-03-2024 Eosinophils/100 WBC (Bld) 3.2 % Normal . [facility] Comment on above: Performed By: #### S CAN CBC, MG, PHOS, CMP #### [address] Automated eosinophil countOr dered By: Kait Dna on 03-03-2024 Eosinophils (Bld) [#/Vol] 0.2 10*3/uL Normal 0.0-0.[address] [facility] Comment on above: Performed By: #### S CAN CBC, MG, PHOS, CMP #### [address] Automated monocyte %Ordered By: Kait Dan on 03-03-2024 Monocytes/100 WBC (Bld) 11.3 % Normal . [facility] Comment on above: Performed By: #### S CAN CBC, MG, PHOS, CMP #### [address] Automated neutrophil %Ordere d By: Kait Dan on 03-03-2024 Neutrophils/100 WBC (Bld) 65.6 % Normal . [facility] Comment on above: Performed By: #### S CAN CBC, MG, PHOS, CMP #### [facility] [address] BNP ser/plasOrdered By: Delfina Dan on 03-03-2024 Natriuretic peptide B (Bld) [Mass/Vol] 23.0 pg/mL Normal 5-[address] [facility] Comment on above: Result Comment: PERF ORMED BY: [place] [address] PATHOLOGIST SERVICE DELIVERY ANALYST CLIFFORD LOBATO M.D. Performed By: #### S CAN CBC, MG, PHOS, CMP #### [address] Basic Metabolic Panelon 02-04 Creatinine Clr Calc Pharmacy 44.86 Normal [facility] Comment on above: Result Comment: PERF ORMED BY: [place] [address] PATHOLOGIST SERVICE DELIVERY ANALYST CLIFFORD LOBATO M.D. Performed By: #### S CAN CBC, MG, PHOS, CMP #### [address] GFR/1.73 sq M.predicted MDRD (S/P/Bld) [Vol rate/Area] 38.669 mL/min/{1.73_m2} Normal [facility] Comment on above: Performed By: #### S CAN CBC, MG, PHOS, CMP #### [facility] [address] [place] [address] Bilirubin Test strip Ql (U)O rdered By: Kait Dan on 03-03-2024 Bilirubin Ql (U) Negative Negative [facility] Bilirubin Ql (U) Bilirubin.total [Presence] in Urine by Test strip Negative [facility] COVID CepheidOrdered By: Jeremi Dan on 03-03-2024 SARS-CoV-2 (COVID-19) Ab IA Ql Negative Negative [facility] Comment on above: This is a duplicate CepMeme Xpert Xpress CoV-2/Flu/RSV Plus RNA by RT-PCR result to be used for statistical tracking purpose only. SARS-CoV-2 (COVID-19) RNA NELLY+probe Ql (Unsp spec) [facility] SARS-CoV-2 (COVID-19) RNA NELLY+probe Ql (Unsp spec) Negative Normal Negative [facility] Comment on above: Result Comment: This is a duplicate Cepheid Xpert Xpress CoV-2/Flu/RSV Plus RNA by RT-PCR result to be used for statistical tracking purpose only. PERFORMED BY: [facility] [address] [place] [address] PATHOLOGIST SERVICE DELIVERY ANALYST CLIFFORD LOBATO M.D. Performed By: #### S CAN CBC, MG, PHOS, CMP #### [facility] [address] COVID Cepheid NegativeOrdere d By: Kait Dan on 03-03-2024 SARS-CoV-2 (COVID-19) Ab IA Ql COVID Cepheid Negative [facility] Comment on above: This is a duplicate Cepheid Xpert Xpress CoV-2/Flu/RSV Plus RNA by RT-PCR result to be used for statistical tracking purpose only. COVID-19 / Flu A/B / RSV PCR [...] or Cepheid Disclaimer revoked sooner. PERFORMED BY: [place] [address] PATHOLOGIST SERVICE DELIVERY ANALYST CLIFFORD LOBATO M.D. [place] [facility] Comment on above: Performed By: #### S CAN CBC, MG, PHOS, CMP #### [address] abdomen pelvis w conon CT abdomen pelvis w con [facility] [place] [address] [place] [address] CT Scan Report Signed Patient: Myra Pickard SR MR#: [id number] : 1965 Acct:[id number] Age/Sex: 58 / M ADM Date: 03/03/24 [...] Sudeep Lind M.D.03/03/2024 3:01 PM Dictation Location: [place] [address] Transcribed By: [facility] 03/03/24 1501 Dictated By: Sudeep Lind DO 03/03/24 1454 Signed By: 03/03/24 1501 Normal [facility] CT head/brain wo conon 03-03 CT head/brain wo con [facility] [place] [address] CT Scan Report Signed Patient: Myra Pickard SR MR#: [id number] : 1965 Acct:[id number] Age/Sex: 58 / M ADM Date: 03/03/24 Loc: Room: [address] [place] [address] Type: ADM INOo Attending Dr: João Powell [...] Sudeep Lind M.D.03/03/2024 5:50 PM Dictation Location: [place] [address] Transcribed By: [facility] 03/03/241749 Dictated By: Sudeep Lind DO 03/03/241745 Signed By: 03/03/241749 Normal [facility] Calcium [Mass/volume] in Ser um or PlasmaOrdered By: Kait Dan on 03-03-2024 Calcium [Mass/Vol] 8.6 mg/dL Normal 8.6-10.3 [facility] Comment on above: Performed By: #### S CAN CBC, MG, PHOS, CMP #### [address] Capillary blood glucose ashley urement by glucometer (mass/volume)Ordered By: Kait Dan on 03-03-2024 Glucose [Mass/Vol] 167 mg/dL Normal [facility] Comment on above: Random Glucose Refer ence Range is dependent on time and content of last meal. Glucose of more than 200 mg/dL in a nonstressed, ambulatory subject supports the diagnosis of Diabetes Mellitus. Result Comment: [place] Glucose Reference Range is dependent on time and content of last meal. Glucose of more than 200 mg/dL in a nonstressed, ambulatory subject supports the diagnosis of Diabetes Mellitus. PERFORMED BY: [place] [address] PATHOLOGIST SERVICE DELIVERY ANALYST CLIFFORD LOBATO M.D. Performed By: #### G LULS #### Point of Care testing , Carbon dioxide, total [Moles /volume] in Serum or PlasmaOrdered By: Kait Dan on 03-03-2024 CO2 [Moles/Vol] 24.3 mmol/L Normal 21.0-31.0 [facility] Comment on above: Performed By: #### S CAN CBC, MG, PHOS, CMP #### [facility] [address] [place] [address] [place] Chloride [Moles/volume] in S ilia or PlasmaOrdered By: Kait Dan on 03-03-2024 Chloride [Moles/Vol] 103 mmol/L Normal 98-107 [facility] Comment on above: Performed By: #### S CAN CBC, MG, PHOS, CMP #### [facility] [address] [place] [address] Color Auto (U)Ordered By: Martha Dan on 03-03-2024 Color (U) Color of Urine by Auto [facility] Color of Urine by AutoOrdere d By: Kait Dan on 03-03-2024 Color (U) Colorless Normal Yellow [facility] Comment on above: Order Comment: Name Collection Type:: Clean-Voided Midstream Performed By: #### S CAN CBC, MG, PHOS, CMP #### [facility] [address] [place] [address] [place] Creatinine [Mass/volume] in Serum or PlasmaOrdered By: Kait Dan on 03-03-2024 Creatinine [Mass/Vol] 1.97 mg/dL High 0.70-1.30 [facility] Comment on above: Performed By: #### S CAN CBC, MG, PHOS, CMP #### [facility] [address] [place] [address] [place] ECG 12 lead ECGon 03-03-2024 [address] [facility] [place] [address] Electrocardiograph Report Signed Patient: Myra Pickard SR MR#: [id number] : 1965 Acct:[id number] Age/Sex: 58 / M ADM Date: 03/03/24 Loc: ER Room: Type: [facility] ER Attending Dr: Ordering Provider: Kait [...] Junctional rhythm Confirmed by Kait Dan MD ([id number]) on 03/03/2024 5:35:37 PM Referred By: Electronically Signed By: Kait Dan MD Transcribed By: MUS Signed By Kait Dan MD 02/04 02/26 1735 Normal [facility] Erythrocyte distribution wid th [Ratio] by Automated countOrdered By: Kait Dan on 03-03-2024 Erythrocyte distribution width (RBC) [Ratio] 20.9 % High 12.0-14.[address] [facility] Comment on above: Performed By: #### S CAN CBC, MG, PHOS, CMP #### [facility] [address] [place] [address] Erythrocytes [#/volume] in B lood by Automated countOrdered By: Kait Dan on 03-03-2024 RBC (Bld) [#/Vol] 3.58 10*6/uL Low 3.90-5.60 [facility] Comment on above: Performed By: #### S CAN CBC, MG, PHOS, CMP #### [facility] [address] [place] [address] Glucose Poct Glucometerson 0 03-03-2024 Commemt1 Glu2: Cleaned Meter Normal [facility] Comment on above: Result Comment: PERF ORMED BY: [place] [address] PATHOLOGIST SERVICE DELIVERY ANALYST CLIFFORD LOBATO M.D. Performed By: #### S CAN CBC, MG, PHOS, CMP #### [address] Glucose [Mass/Vol] 204 mg/dL Normal [facility] Comment on above: Result Comment: [place] om Glucose Reference Range is dependent on time and content of last meal. Glucose of more than 200 mg/dL in a nonstressed, ambulatory subject supports the diagnosis of Diabetes Mellitus. Performed By: #### S CAN CBC, MG, PHOS, CMP #### [facility] [address] [place] [id number] [place] Glucose [Mass/volume] in Ser um or PlasmaOrdered By: Kait Dan on 03-03-2024 Glucose [Mass/Vol] 142 mg/dL High 70-100 [facility] Comment on above: ADA recommended refe rence rangeRandom Glucose Reference Range is dependent on time and content of last meal. Glucose of more than 200 mg/dL in a nonstressed, ambulatory subject supports the diagnosis of Diabetes Mellitus. Result Comment: [place] om Glucose Reference Range is dependent on time and content of last meal. Glucose of more than 200 mg/dL in a nonstressed, ambulatory subject supports the diagnosis of Diabetes Mellitus. ADA recommended reference range Performed By: #### S CAN CBC, MG, PHOS, CMP #### [facility] [address] [place] [address] [place] Glucose [Mass/volume] in Uri ne by Test stripOrdered By: Kait Dan on 03-03-2024 Glucose Test strip (U) [Mass/Vol] 500 mg/dL High Normal [facility] Glucose Test strip (U) [Mass/Vol] Glucose [Mass/volume] in Urine by Test strip [facility] Hematocrit [Volume Fraction] of Blood by Automated countOrdered By: Kait Dan on 03-03-2024 Hematocrit (Bld) [Volume fraction] 24.7 % Low 38.8-50.[address] [facility] Comment on above: Performed By: #### S CAN CBC, MG, PHOS, CMP #### [facility] [address] [place] [id number] [facility] Hemoglobin Test strip Ql (U) Ordered By: Kait Dan on 03-03-2024 Hemoglobin Ql (U) Negative Negative [facility] Hemoglobin Ql (U) Hemoglobin [Presence ] in Urine by Test strip Negative [facility] Hemoglobin [Mass/volume] in BloodOrdered By: Kait Dan on 03-03-2024 Hemoglobin (Bld) [Mass/Vol] 7.8 g/dL Low 13.0-17.[address] [facility] Comment on above: Performed By: #### S CAN CBC, MG, PHOS, CMP #### [facility] [address] Hypochromia LM Ql (Bld)Order ed By: Kait Dan on 03-03-2024 Hypochromia Ql (Bld) Moderate [facility] Ketones Test strip Ql (U)Ord ered By: Kait Dan on 03-03-2024 Ketones Ql (U) Ketones [Presence] i n Urine by Test strip Negative [facility] Ketones [Presence] in Urine by Test stripOrdered By: Kait Dan on 03-03-2024 Ketones Ql (U) Negative Normal Negative [facility] Comment on above: Order Comment: Name Collection Type:: Clean-Voided Midstream Performed By: #### S CAN CBC, MG, PHOS, CMP #### [facility] [address] [place] [address] [place] Leukocyte esterase [Presence ] in Urine by Test stripOrdered By: Kait Dan on 03-03-2024 Leukocyte esterase Test strip Ql (U) Negative Normal Negative [facility] Comment on above: Order Comment: Name Collection Type:: Clean-Voided Midstream Performed By: #### S CAN CBC, MG, PHOS, CMP #### [facility] [address] Leukocyte esterase Test strip Ql (U) Leukocyte esterase [Presence] in Urine by Test strip Negative [facility] Leukocytes [#/volume] correc jorge for nucleated erythrocytes in Blood by Automated counOrdered By: Kait Dan on 03-03-2024 WBC corrected for nucl RBC Auto (Bld) [#/Vol] 7.2 10*3/uL 4.1-10.[address] [facility] Leukocytes [#/volume] in Blo od by Automated countOrdered By: Kait Dan on 03-03-2024 WBC (Bld) [#/Vol] 7.2 10*3/uL Normal 4.1-10.5 [facility] Comment on above: Performed By: #### S CAN CBC, MG, PHOS, CMP #### [facility] [address] [place] [address] Lymphocytes [#/volume] in Bl ood by Automated countOrdered By: Kait Dan on 03-03-2024 Lymphocytes (Bld) [#/Vol] 1.3 10*3/uL Normal 1.00-4.[address] [facility] Comment on above: Performed By: #### S CAN CBC, MG, PHOS, CMP #### [facility] [address] Lymphocytes/100 leukocytes i n Blood by Automated countOrdered By: Kait Dan on 03-03-2024 Lymphocytes/100 WBC (Bld) 18.2 % Normal . [facility] Comment on above: Performed By: #### S CAN CBC, MG, PHOS, CMP #### [facility] [address] [place] [address] MCH [Entitic mass] by Automa jorge countOrdered By: Kait Dan on 03-03-2024 MCH (RBC) [Entitic mass] 21.8 pg Low 27.5-35.[address] [facility] Comment on above: Performed By: #### S CAN CBC, MG, PHOS, CMP #### [facility] [address] [place] [address] MCHC Auto (RBC) [Mass/Vol]Or dered By: Kait Dan on 03-03-2024 MCHC (RBC) [Mass/Vol] 31.6 g/dL Low 32.5-35.6 [facility] MCV [Entitic volume] by Auto mated countOrdered By: Kait Dan on 03-03-2024 MCV (RBC) [Entitic vol] 69.0 fL Low 83.5-[address] [facility] Comment on above: Performed By: #### S CAN CBC, MG, PHOS, CMP #### [address] Microcytes LM Ql (Bld)Ordere d By: Kait Dan on 03-03-2024 Microcytes Ql (Bld) Marked [facility] Monocyte distribution width [Entitic volume] in Blood by AutomatedOrdered By: Kait Dan on 03-03-2024 Monocyte distribution width Auto (Bld) [Entitic vol] 17.33 % 0.00-20.[address] [facility] Monocyte distribution width Auto (Bld) [Entitic vol] Monocyte distribution width [Entitic volume] in Blood by Automated 0.00-20.[address] [facility] Natriuretic peptide B [Mass/ Vol]Ordered By: Kait Dan on 03-03-2024 Natriuretic peptide B (Bld) [Mass/Vol] BNP ser/plas 5-[address] [facility] Neutrophils [#/volume] in Bl ood by Automated countOrdered By: Kait Dan on 03-03-2024 Neutrophils (Bld) [#/Vol] 4.7 10*3/uL Normal 1.8-7.[address] [facility] Comment on above: Performed By: #### S CAN CBC, MG, PHOS, CMP #### [facility] [address] Nitrite Test strip Ql (U)Ord ered By: Kait Dan on 03-03-2024 Nitrite Ql (U) Negative Negative [facility] Nitrite Ql (U) Nitrite [Presence] i n Urine by Test strip Negative [facility] No Panel InformationOrdered By: Kait Dan on 03-03-2024 Estimated GFR (CKD-EPI) 38.669 mL/Min [facility] Creatinine Clearance (Chem 44.[address] [facility] Nucleated erythrocytes [Pres ence] in Blood by Automated countOrdered By: Kait Dan on 03-03-2024 Nucleated RBC Auto Ql (Bld) 0.2 /100{WBC} 0-0.[address] [facility] Platelet adequacy [Presence] in Blood by Light microscopyOrdered By: Kait Dan on 03-03-2024 Platelets LM Ql (Bld) Increased Normal [facility] Platelet mean volume [Entiti c volume] in Blood by Automated countOrdered By: Kait Dan on 03-03-2024 Platelet mean volume (Bld) [Entitic vol] 7.8 fL Normal 6.6-10.[address] [facility] Comment on above: Performed By: #### S CAN CBC, MG, PHOS, CMP #### [facility] [address] [place] [address] Platelet morphology finding [Identifier] in BloodOrdered By: Kait Dan on 03-03-2024 Platelet morphology finding Nom (Bld) Normal Normal [facility] Platelets [#/volume] in Bloo d by Automated countOrdered By: Kait Dan on 03-03-2024 Platelets (Bld) [#/Vol] 452 10*3/uL High 150-[address] [facility] Comment on above: Performed By: #### S CAN CBC, MG, PHOS, CMP #### [facility] [address] [place] [address] Polychromasia [Presence] in Blood by Light microscopyOrdered By: Kait Dan on 03-03-2024 Polychromasia LM Ql (Bld) Slight [facility] Potassium [Moles/volume] in Serum or PlasmaOrdered By: Kait Dan on 03-03-2024 Potassium [Moles/Vol] 3.9 mmol/L Normal 3.5-5.1 [facility] Comment on above: Performed By: #### S CAN CBC, MG, PHOS, CMP #### [facility] [address] [place] [address] Protein Test strip (U) [Mass /Vol]Ordered By: Kati Dan on 03-03-2024 Protein (U) [Mass/Vol] Negative Negative [facility] Protein (U) [Mass/Vol] Protein [Mass/vol ume] in Urine by Test strip Negative [facility] RBC morphologyOrdered By: As darci Dan on 03-03-2024 RBC morphology finding Nom (Bld) N/A [facility] Respiratory specimen influen za A virus, influenza B virus, respiratory syncytical virOrdered By: Kait Dan on 03-03-2024 SARS-CoV-2 (COVID-19) RNA NELLY+probe Ql (Unsp spec) Respiratory specimen influenza A virus, influenza B virus, respiratory syncytical vir [facility] Scan and CBCon 03-03-2024 Hypochromasia Moderate Normal [facility] Comment on above: Performed By: #### S CAN CBC, MG, PHOS, CMP #### [address] Mean Corpuscular HGB Conc 31.6 g/dL Low 32.5-35.6 [facility] Comment on above: Performed By: #### S CAN CBC, MG, PHOS, CMP #### [address] Microcytosis Marked Normal [facility] Comment on above: Performed By: #### S CAN CBC, MG, PHOS, CMP #### [address] Monocytes/100 WBC (Bld) 17.33 % Normal 0.00-20.00 [facility] Comment on above: Performed By: #### S CAN CBC, MG, PHOS, CMP #### [address] NRBC% 0.2 /100{WBC} Normal 0-0.5 [facility] Comment on above: Performed By: #### S CAN CBC, MG, PHOS, CMP #### [address] Platelet Estimate Increased Normal Normal [facility] Comment on above: Performed By: #### S CAN CBC, MG, PHOS, CMP #### [address] Platelet Morphology Normal Normal Normal [facility] Comment on above: Result Comment: PERF ORMED BY: [place] [address] PATHOLOGIST SERVICE DELIVERY ANALYST CLIFFORD LOBATO M.D. Performed By: #### S CAN CBC, MG, PHOS, CMP #### [address] Polychromasia Slight Normal [facility] Comment on above: Performed By: #### S CAN CBC, MG, PHOS, CMP #### [address] Serum or plasma anion gap de terminationOrdered By: Kait Dan on 03-03-2024 Anion gap [Moles/Vol] 14.6 mmol/L Normal 6.0-15.0 [facility] Comment on above: Performed By: #### S CAN CBC, MG, PHOS, CMP #### [address] Sodium [Moles/volume] in Ser um or PlasmaOrdered By: Kait Dan on 03-03-2024 Sodium [Moles/Vol] 138 mmol/L Normal 136-145 [facility] Comment on above: Performed By: #### S CAN CBC, MG, PHOS, CMP #### [address] Specific gravity Test strip (U) [Rel density]Ordered By: Kait Dan on 03-03-2024 Specific gravity (U) [Rel density] 1.009 1.001-1.[address] [facility] Specific gravity (U) [Rel density] Specific gravity of Urine by Test strip 1.001-1.[address] [facility] Troponin I High Sensitivityo n 03-03-2024 Troponin I High Sensitivity 4.5 pg/mL Normal 0.0-20.0 [facility] Comment on above: Result Comment: PERF ORMED BY: [place] [address] PATHOLOGIST SERVICE DELIVERY ANALYST CLIFFORD LOBATO M.D. Performed By: #### G LULS #### Point of Care testing , Troponin I High Sensitivity 9.2 pg/mL Normal 0.0-20.0 [facility] Comment on above: Result Comment: PERF ORMED BY: [place] [address] PATHOLOGIST SERVICE DELIVERY ANALYST CLIFFORD LOBATO M.D. Performed By: #### S CAN CBC, MG, PHOS, CMP #### [address] Troponin I.cardiac [Mass/vol ume] in Serum or Plasma by Detection limit <= 0.01 ng/Ordered By: Kait Dan on 03-03-2024 Troponin I.cardiac DL <= 0.01 ng/mL [Mass/Vol] 4.5 pg/mL 0.0-20.[address] [facility] Troponin I.cardiac DL <= 0.01 ng/mL [Mass/Vol] Troponin I.cardiac [Mass/volume] in Serum or Plasma by Detection limit <= 0.01 ng/ 0.0-20.[address] [facility] Urea nitrogen [Mass/volume] in Serum or PlasmaOrdered By: Kait Dan on 03-03-2024 Urea nitrogen [Mass/Vol] 46 mg/dL High 7-[address] [facility] Comment on above: Performed By: #### S CAN CBC, MG, PHOS, CMP #### [facility] [address] Urinalysison 03-03-2024 Bilirubin,Urine Negative Normal Negative [facility] Comment on above: Order Comment: Name Collection Type:: Clean-Voided Midstream Performed By: #### S CAN CBC, MG, PHOS, CMP #### [facility] [address] Glucose Ql (U) 500 mg/dL High Normal [facility] Comment on above: Order Comment: Name Collection Type:: Clean-Voided Midstream Performed By: #### S CAN CBC, MG, PHOS, CMP #### [facility] [address] [place] [address] [place] Nitrite,Urine Negative Normal Negative [facility] Comment on above: Order Comment: Name Collection Type:: Clean-Voided Midstream Performed By: #### S CAN CBC, MG, PHOS, CMP #### [facility] [address] [place] [address] [place] Occult Blood,Urine Negative Normal Negative [facility] Comment on above: Order Comment: Name Collection Type:: Clean-Voided Midstream Result Comment: PERF ORMED BY: [place] [address] PATHOLOGIST SERVICE DELIVERY ANALYST CLIFFORD LOBATO M.D. Performed By: #### S CAN CBC, MG, PHOS, CMP #### [address] Protein,Urine Negative Normal Negative [facility] Comment on above: Order Comment: Name Collection Type:: Clean-Voided Midstream Performed By: #### S CAN CBC, MG, PHOS, CMP #### [address] Specificy [place],Urine 1.009 Normal 1.001-1.03 0 [facility] Comment on above: Order Comment: Name Collection Type:: Clean-Voided Midstream Performed By: #### S CAN CBC, MG, PHOS, CMP #### [address] Urobilinogen,Urine Normal Normal Normal [facility] Comment on above: Order Comment: Name Collection Type:: Clean-Voided Midstream Performed By: #### S CAN CBC, MG, PHOS, CMP #### [address] Urine appearanceOrdered By: Kait Dan on 03-03-2024 Appearance (U) Clear Normal Clear [facility] Comment on above: Order Comment: Name Collection Type:: Clean-Voided Midstream Performed By: #### S CAN CBC, MG, PHOS, CMP #### [address] Urobilinogen Test strip (U) [Mass/Vol]Ordered By: Kait Dan on 03-03-2024 Urobilinogen (U) [Mass/Vol] Normal mg/dL Normal [facility] Urobilinogen (U) [Mass/Vol] Urobilinogen [Mass/volume] in Urine by Test strip Normal [facility] XR chest 2V*on 03-03-2024 XR chest 2V* [facility] [place] [address] [place] [address] XRay Report Signed Patient: Myra Pickard SR MR#: [id number] : 1965 Acct:[id number] Age/Sex: 58 / M ADM Date: 03/03/24 [...] Sudeep Lind M.D.03/03/2024 3:05 PM Dictation Location: [place] [address] Transcribed By: [facility] 03/03/24 1505 Dictated By: Sudeep Lind DO 03/03/24 1505 Signed By: 03/03/24 1505 Normal [facility] pH Test strip (U)Ordered By: Kait Dan on 03-03-2024 pH (U) pH of Urine by Test strip 5.0-9.[address] [facility] pH of Urine by Test stripOrd ered By: Kait Dan on 03-03-2024 pH (U) 5.0 [pH] Normal 5.0-9.[address] [facility] Comment on above: Order Comment: Name Collection Type:: Clean-Voided Midstream Performed By: #### S CAN CBC, MG, PHOS, CMP #### [facility] [address] [place] [address] Coding Queryon 02-22-2024 Coding Query Coding Query From: Eliz Diaz RN To: Ben Corrigan III, DO; Sent: 02/20/2024 14:33:58 EDT ! Subject: Coding Query Due Date/Time: 02/21/2024 14:33:00 EDT Caller Name: MYRA PICKARD SR; Caller Number: H Documentation in [...] particular answer is desired or expected. 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 Normal [facility] Surgical Pathology Reporton 02-22-2024 Surgical Pathology Report [facility] [address] [place] [address]- Surgical Pathology Report Collected Date/Time: 02/12/2024 14:13 EDT Pathologist: Blair Blood MD Received Date/Time: 02/13/2024 07:26 EDT Simon HERRERA, Mike Montes MD, Mike Cain Surgical Pathology Report - 02/22/2024 14:10 EDT - Auth (Verified) Final Diagnosis RIGHT LOWER EXTREMITY, [id number] AMPUTATION: - Gangrenous ulcer and artery atherosclerosis. - Seborrheic keratosis. - No evidence of osteomyelitis. - Resection margin uninvolved by acute inflammation. (Electronic Signature) Yan. Caitie MD 02/22/2024 14:10 Clinical Information Pre-Op Diagnosis: Atherosclerosis of [place] arteries of extremities with gangrene, right leg. [...] pigmented lesion measuring 0.2 x 0.2 cm. Burlapper sections are submitted in a total of ten cassettes: 1-5: Skin and soft tissue ulcerated areas 6-7: Artery 8: Bone near ulceration after decalcification 9-10: Bone from surgical margin after decalcification (DC) Gross of specimen was discussed with Dr. Dunne in Frozen Section Room at 1400. (DC) DC:[facility] Microscopic Description Microscopic examination performed unless gross only specified. Normal [facility] Comment on above: Performed By: #### 4 [id number] #### [facility] [address] [place] [address] BMPon 02-21-2024 Anion gap [Moles/Vol] 8 mmol/L Normal 6-16 [facility] Comment on above: Performed By: #### 2 [id number] #### [facility] [address] [place] [address] Calcium [Mass/Vol] 8.6 mg/dL Low 8.9-11.1 [facility] Comment on above: Performed By: #### 2 254454 #### [facility] [address] [place] [address] Chloride [Moles/Vol] 100 mmol/L Low 101-111 [facility] Comment on above: Performed By: #### 2 255101 #### [facility] [address] [place] [address] CO2 [Moles/Vol] 30 mmol/L Normal 21-31 [facility] Comment on above: Performed By: #### 2 [id number] #### [facility] [address] [place] [address] Creatinine [Mass/Vol] 1.8 mg/dL High 0.5-1.3 [facility] Comment on above: Performed By: #### 2 531990 #### [facility] [address] [place] [address] Glucose [Mass/Vol] 169 mg/dL Normal 55-199 [facility] Comment on above: Performed By: #### 2 558238 #### [facility] [address] [place] [address] Potassium [Moles/Vol] 3.7 mmol/L Normal 3.5-5.3 [facility] Comment on above: Performed By: #### 2 [id number] #### [facility] [address] [place] [address] Sodium [Moles/Vol] 134 mmol/L Low 135-145 [facility] Comment on above: Performed By: #### 2 090853 #### [facility] [address] [place] [address] Urea nitrogen [Mass/Vol] 26 mg/dL High 5-21 [facility] Comment on above: Performed By: #### 2 [id number] #### [facility] [address] [place] [address] Urea nitrogen/Creatinine [Mass ratio] 14 No Units Normal 10-20 [facility] Comment on above: Performed By: #### 2 726219 #### [facility] [address] [place] [address] CBC w/ Auto Diffon 4 Basophils/100 WBC (Bld) 0.7 % Normal 0.0-2.0 [facility] Comment on above: Performed By: #### 2 186159 #### [facility] [address] [place] [address] Basophils/Leukocytes Auto (Bld) [Pure # fraction] 0.1 E9/L Normal 0.0-0.2 [facility] Comment on above: Performed By: #### 2 657524 #### [facility] [address] [place] [address] Eosinophils (Bld) [#/Vol] 0.4 E9/L Normal 0.0-0.5 [facility] Comment on above: Performed By: #### 2 564989 #### [facility] [address] [place] [address] Eosinophils/100 WBC (Bld) 3.6 % Normal 0.0-8.0 [facility] Comment on above: Performed By: #### 2 174358 #### [facility] [address] [place] [address] Erythrocyte distribution width (RBC) [Ratio] 21.4 % High 10.9-14.2 [facility] Comment on above: Performed By: #### 2 059148 #### [facility] [address] [place] [address] Hematocrit (Bld) [Volume fraction] 25.6 % Low 37.7-49.0 [facility] Comment on above: Performed By: #### 2 976377 #### [facility] [address] [place] [address] Hemoglobin (Bld) [Mass/Vol] 8.1 g/dL Low 13.5-17.5 [facility] Comment on above: Performed By: #### 2 706306 #### [facility] [address] [place] [address] Hypochromia Auto Ql (Bld) PRESENT Invalid Interpretation Code [facility] Comment on above: Performed By: #### 2 046867 #### [facility] [address] [place] [address] Lymphocytes (Bld) [#/Vol] 1.5 E9/L Normal 1.0-4.0 [facility] Comment on above: Performed By: #### 2 162893 #### [facility] [address] [place] [address] Lymphocytes/100 WBC (Bld) 12.4 % Low 14.0-50.0 [facility] Comment on above: Performed By: #### 2 335672 #### [facility] [address] [place] [address] MCH (RBC) [Entitic mass] 22.3 pg Low 27.0-34.0 [facility] Comment on above: Performed By: #### 2 450791 #### [facility] [address] [place] [address] MCHC (RBC) [Mass/Vol] 31.5 g/dL Normal 31.4-36.0 [facility] Comment on above: Performed By: #### 2 224265 #### [facility] [address] [place] [address] MCV (RBC) [Entitic vol] 70.7 fL Low 80.0-100.0 [facility] Comment on above: Performed By: #### 2 [id number] #### [facility] [address] [place] [address] Microcytes Ql (Bld) PRESENT Invalid Interpretation Code [facility] Comment on above: Performed By: #### 2 099440 #### [facility] [address] [place] [address] Monocytes (Bld) [#/Vol] 1.1 E9/L High 0.2-1.0 [facility] Comment on above: Performed By: #### 2 672647 #### [facility] [address] [place] [address] Neutrophils (Bld) [#/Vol] 9.3 E9/L High 2.0-7.5 [facility] Comment on above: Performed By: #### 2 555442 #### [facility] [address] [place] [address] Neutrophils/100 WBC (Bld) 74.6 % Normal 36.0-75.0 [facility] Comment on above: Performed By: #### 2 671068 #### [facility] [address] [place] [address] Platelet mean volume (Bld) [Entitic vol] 8.6 fL Normal 6.4-10.8 [facility] Comment on above: Performed By: #### 2 794306 #### [facility] [address] [place] [address] Platelets (Bld) [#/Vol] 481.0 E9/L Normal 150.0-500. 0 [facility] Comment on above: Performed By: #### 2 730843 #### [facility] [address] [place] [address] Platelets Large LM Ql (Bld) PRESENT Invalid Interpretation Code [facility] Comment on above: Performed By: #### 2 078007 #### [facility] [address] [place] [address] RBC (Bld) [#/Vol] 3.6 E12/L Low 4.3-5.9 [facility] Comment on above: Performed By: #### 2 552226 #### [facility] [address] [place] [address] RBC size Nom (Bld) NORMAL Invalid Interpretation Code [facility] Comment on above: Performed By: #### 2 265688 #### [facility] [address] [place] [address] WBC corrected for nucl RBC Auto (Bld) [#/Vol] 12.5 E9/L High 4.0-11.0 [facility] Comment on above: Performed By: #### 2 638925 #### [facility] [address] [place] [address] CHEMISTRYOrdered By: Jericho ROP User on 02-21-2024 Glucose [Mass/Vol] 227 mg/dL High 55 - 99 mg/dL [facility] POC Subsection Comment on above: Result Comment: Deon hathaway RN/ POC Device SN [id number] 1 Invalid Interpretation Code FT POC Subsection POC User ID [id number] 1 Invalid Interpretation Code FT POC Subsection POC Username CLARITA RAMSEY Invalid Interpretation Code [facility] POC Subsection Glucose [Mass/Vol] 177 mg/dL High 55 - 99 mg/dL [facility] POC Subsection Comment on above: Result Comment: Deon hathaway RN/MD POC Device SN [id number] 1 Invalid Interpretation Code FT POC Subsection POC User ID [id number] 1 Invalid Interpretation Code FT POC Subsection POC Username CLARITA RAMSEY Invalid Interpretation Code [facility] POC Subsection Glucose [Mass/Vol] 158 mg/dL High 55 - 99 mg/dL [facility] POC Subsection POC Device SN [id number] 1 Invalid Interpretation Code [facility] POC Subsection POC User ID [id number] 1 Invalid Interpretation Code [facility] POC Subsection POC Username FADI LIND Invalid Interpretation Code [facility] POC Subsection CHEMISTRYOrdered By: SYSTEM SYSTEM on 02-21-2024 Anion gap [Moles/Vol] 8 mmol/L Normal 6 - 16 mEq/L [facility] Calcium [Mass/Vol] 8.6 mg/dL Low 8.9 - 11. 1 mg/dL [facility] Chloride [Moles/Vol] 100 mmol/L Low 101 - 1 11 mmol/L [facility] CO2 [Moles/Vol] 30 mmol/L Normal 21 - 31 mmol/L [facility] Creatinine [Mass/Vol] 1.8 mg/dL High 0.5 - 1.3 mg/dL [facility] eGFR 43 mL/min/1.73 m2 Low >=59mL/min /1.73 m2 [facility] Glucose [Mass/Vol] 169 mg/dL Normal 55 - 199 mg/dL [facility] Potassium [Moles/Vol] 3.7 mmol/L Normal 3.5 - 5.3 mmol/L [facility] Sodium [Moles/Vol] 134 mmol/L Low 135 - 145 mmol/L [facility] Urea nitrogen [Mass/Vol] 26 mg/dL High 5 - 21 mg/dL [facility] Urea nitrogen/Creatinine [Mass ratio] 14 mg/mg Normal 10 - 20 [facility] Capillary Glucose POCon 02-03 Glucose [Mass/Vol] 227 mg/dL High 55-99 [facility] Comment on above: Result Comment: Deon hathaway RN/ Performed By: #### 2 [id number] #### [facility] [address] [place] [address] Glucose [Mass/Vol] 177 mg/dL High 55-99 [facility] Comment on above: Result Comment: Deon hathaway RN/ Performed By: #### 2 [id number] #### [facility] [address] [place] [address] Glucose [Mass/Vol] 158 mg/dL High 55-99 [facility] Comment on above: Performed By: #### 2 [id number] #### [facility] [address] [place] [address] Discharge Note-Nursingon Discharge Note-Nursing Discharge Note-Nu rsing MYRA PICKARD SR :1965 Visit Date:02/12/2024 Inpatient Discharge Instructions Your Care Team Admitting Physician - Mike Montes MD Consulting Physician - Mike Montes MD Referring Physician - Mike Montes MD Reason for Your Visit I70.261 [...] Up Appointments after Discharge Follow Up with TERESA LYNCH DO, FAM When: Where: [address] [place] [address]- [facility] Within 2 weeks Comments: Call for followup appointment Where: [facility] [place] [address]- Medications What How Much When Instructions Next [...] 0.5 Tablets (more content not included)... Normal [facility] HEMATOLOGYOrdered By: SYSTEM SYSTEM on 02-21-2024 Basophils/100 WBC (Bld) 0.7 % Normal 0.0 - 2.0 % [facility] Basophils/Leukocytes Auto (Bld) [Pure # fraction] 0.1 E9/L Normal 0.0 - 0.2 E9/L [facility] Eosinophils (Bld) [#/Vol] 0.4 E9/L Normal 0.0 - 0.5 E9/L [facility] Eosinophils/100 WBC (Bld) 3.6 % Normal 0.0 - 8.0 % [facility] Erythrocyte distribution width (RBC) [Ratio] 21.4 % High 10.9 - 14.2 % [facility] Hematocrit (Bld) [Volume fraction] 25.6 % Low 37.7 - 49.0 % [facility] Hemoglobin (Bld) [Mass/Vol] 8.1 g/dL Low 13.5 - 17.5 gm/dL [facility] Hypochromia Auto Ql (Bld) PRESENT *NA* (02/21/24 6:02 AM) Invalid Interpretation Code [facility] Lymphocytes (Bld) [#/Vol] 1.5 E9/L Normal 1.0 - 4.0 E9/L [facility] Lymphocytes/100 WBC (Bld) 12.4 % Low 14.0 - 50.0 % [facility] MCH (RBC) [Entitic mass] 22.3 pg Low 27.0 - 34.0 pg [facility] MCHC (RBC) [Mass/Vol] 31.5 g/dL Normal 31.4 - 36.0 gm/dL [facility] MCV (RBC) [Entitic vol] 70.7 fL Low 80.0 - 100.0 fL [facility] Microcytes Ql (Bld) PRESENT *NA* (02/21/24 6:02 AM) Invalid Interpretation Code [facility] Monocytes (Bld) [#/Vol] 1.1 E9/L High 0.2 - 1.0 E9/L [facility] Monocytes/100 WBC (Bld) 8.7 % Normal 4.0 - 14.0 % [facility] Neutrophils (Bld) [#/Vol] 9.3 E9/L High 2.0 - 7.5 E9/L [facility] Neutrophils/100 WBC (Bld) 74.6 % Normal 36.0 - 75.0 % [facility] Platelet mean volume (Bld) [Entitic vol] 8.6 fL Normal 6.4 - 10.8 fL [facility] Platelets (Bld) [#/Vol] 481.0 E9/L Normal 150.0 - 500.0 E9/L [facility] Platelets Large LM Ql (Bld) PRESENT *NA* (02/21/24 6:02 AM) Invalid Interpretation Code [facility] RBC (Bld) [#/Vol] 3.6 E12/L Low 4.3 - 5.9 E12/L [facility] RBC size Nom (Bld) NORMAL *NA* (02/21/24 6:02 AM) Invalid Interpretation Code [facility] WBC corrected for nucl RBC Auto (Bld) [#/Vol] 12.5 E9/L High 4.0 - 11.0 E9/L [facility] Inpatient Clinical Summaryon 02-21-2024 Inpatient Clinical Summary Inpatient Clinical Summary [address] [address] Clinical Summary Person Information: Name: MYRA PICKARD SR Age: 58 Years : 1965 Sex: Male PCP: TERESA LYNCH DO Marital Status: Race: White Ethnicity: Non- or Language: [place]ian Visit Id: Visit Reason: I70.261 Speciality: Acuity: Enc Type: Inpatient Med Service: Medical Arrival: 02/12/2024 11:13:26 Discharge: Dispo Type: Address: [address] [place] [id number] Provider Notes: Diagnosis: 1:Hx of right BKA; [...] inhale twice. Care Team Members: Attending Physician: Vanessa Gilliland DO Consulting Physician: Mike Montes MD Referring Physician: Mike Montes MD Follow up: With: Address: When: TERESA LYNCH DO, [address] [address] With: Address: When: Mike Montes MD [address] [place], [place] [id number] Within 2 weeks Comments: Call for followup appointment Patient Education Information: Living With an Amputation Normal [facility] Inpatient Patient Summaryon 02-21-2024 Inpatient Patient Summary Inpatient Patient Summary [address] [address] Patient Discharge Instructions PERSON INFORMATION Name: MYRA PICKARD SR Date of : 1965 Current Date: 02/21/2024 15:14:07 PHYSICIANS Admitting Physician: Mike Montes MD Primary Care Physician: TERESA LYNCH DO PCP Comment: Discharge Diagnosis: 1:Hx of right BKA; 2:Leukocytosis; 3:Essential hypertension; 4:Hyperlipidemia; 5:Anemia; 6: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 Comment: IMATTEO SR, SCOTT A, have received the attached [...] By M (more content not included)... Normal [facility] Interdisciplinary Note - Jorge e Manageron 02-21-2024 Interdisciplinary Note - Power Plant Superintendent Interdisciplinary Note - Power Plant Superintendent Precert for [place] has been obtained. Patient informed and his was also contacted. Both remain in agreement with the discharge plan. Patient's will arrive to [facility] by 1700 this evening and will transport patient to [place] once he has finished his dinner. Hospitalist, RN, and CRM aware. Normal [facility] Comment on above: Result Comment: Elec tronically Signed By: Evens SÁNCHEZ, Fely Martin\.br\Date and Time Signed: 02/21/24 18:08 EDT Interdisciplinary Note - Soc ial Workeron 02-21-2024 Interdisciplinary Note - Finishing Area Supervisor Interdisciplinary Note - Finishing Area Supervisor Precert for [place] has been obtained. Patient informed and his was also contacted. Both remain in agreement with the discharge plan. Patient's will arrive to [facility] by 1700 this evening and will transport patient to [place] once he has finished his dinner. Hospitalist, RN, and CRM aware. Normal [facility] Interdisciplinary Note - Finishing Area Supervisor Interdisciplinary Note - Finishing Area Supervisor Precert for [place] has been obtained. Patient informed and his was also contacted. Both remain in agreement with the discharge plan. Patient's will arrive to [facility] by 1700 this evening and will transport patient to [place] once he has finished his dinner. Hospitalist, RN, and CRM aware. Normal [facility] eGFRon 02-21-2024 eGFR 43 mL/min/1.73 m2 Low >=59 [facility] Comment on above: Order Comment: Order added by Discern Expert. Performed By: #### 1 [id number] #### [facility] [address] [place] [address] BMPon 02-20-2024 Anion gap [Moles/Vol] 15 mmol/L Normal 6-16 [facility] Comment on above: Performed By: #### 2 [id number] #### [facility] [address] [place] [address] Calcium [Mass/Vol] 9.4 mg/dL Normal 8.9-11.1 [facility] Comment on above: Performed By: #### 2 [id number] #### [facility] [address] [place] [address] Chloride [Moles/Vol] 97 mmol/L Low 101-111 [facility] Comment on above: Performed By: #### 2 [id number] #### [facility] [address] [place] [address] CO2 [Moles/Vol] 28 mmol/L Normal 21-31 [facility] Comment on above: Performed By: #### 2 [id number] #### [facility] [address] [place] [address] Creatinine [Mass/Vol] 1.8 mg/dL High 0.5-1.3 [facility] Comment on above: Performed By: #### 2 [id number] #### [facility] [address] [place] [address] Glucose [Mass/Vol] 259 mg/dL High 55-199 [facility] Comment on above: Performed By: #### 2 [id number] #### [facility] [address] [place] [address] Potassium [Moles/Vol] 3.9 mmol/L Normal 3.5-5.3 [facility] Comment on above: Performed By: #### 2 945222 #### [facility] [address] [place] [address] Sodium [Moles/Vol] 136 mmol/L Normal 135-145 [facility] Comment on above: Performed By: #### 2 [id number] #### [facility] [address] [place] [address] Urea nitrogen [Mass/Vol] 27 mg/dL High 5-21 [facility] Comment on above: Performed By: #### 2 [id number] #### [facility] [address] [place] [address] Urea nitrogen/Creatinine [Mass ratio] 15 No Units Normal 10-20 [facility] Comment on above: Performed By: #### 2 [id number] #### [facility] [address] [place] [address] CBC w/ Auto Diffon 4 Basophils/100 WBC (Bld) 0.7 % Normal 0.0-2.0 [facility] Comment on above: Performed By: #### 2 692562 #### [facility] [address] [place] [address] Basophils/Leukocytes Auto (Bld) [Pure # fraction] 0.1 E9/L Normal 0.0-0.2 [facility] Comment on above: Performed By: #### 2 [id number] #### [facility] [address] [place] [address] Eosinophils (Bld) [#/Vol] 0.2 E9/L Normal 0.0-0.5 [facility] Comment on above: Performed By: #### 2 529286 #### [facility] [address] [place] [address] Eosinophils/100 WBC (Bld) 1.6 % Normal 0.0-8.0 [facility] Comment on above: Performed By: #### 2 [id number] #### [facility] [address] [place] [address] Erythrocyte distribution width (RBC) [Ratio] 21.6 % High 10.9-14.2 [facility] Comment on above: Performed By: #### 2 [id number] #### [facility] [address] [place] [address] Hematocrit (Bld) [Volume fraction] 27.5 % Low 37.7-49.0 [facility] Comment on above: Performed By: #### 2 [id number] #### [facility] [address] [place] [address] Hemoglobin (Bld) [Mass/Vol] 8.9 g/dL Low 13.5-17.5 [facility] Comment on above: Performed By: #### 2 [id number] #### [facility] [address] [place] [address] Hypochromia Auto Ql (Bld) PRESENT Invalid Interpretation Code [facility] Comment on above: Performed By: #### 2 [id number] #### [facility] [address] [place] [address] Lymphocytes (Bld) [#/Vol] 1.3 E9/L Normal 1.0-4.0 [facility] Comment on above: Performed By: #### 2 [id number] #### [facility] [address] [place] [address] Lymphocytes/100 WBC (Bld) 8.3 % Low 14.0-50.0 [facility] Comment on above: Performed By: #### 2 [id number] #### [facility] [address] [place] [address] MCH (RBC) [Entitic mass] 22.9 pg Low 27.0-34.0 [facility] Comment on above: Performed By: #### 2 [id number] #### [facility] [address] [place] [address] MCHC (RBC) [Mass/Vol] 32.2 g/dL Normal 31.4-36.0 [facility] Comment on above: Performed By: #### 2 [id number] #### [facility] [address] [place] [address] MCV (RBC) [Entitic vol] 70.9 fL Low 80.0-100.0 [facility] Comment on above: Performed By: #### 2 [id number] #### [facility] [address] [place] [address] Microcytes Ql (Bld) PRESENT Invalid Interpretation Code [facility] Comment on above: Performed By: #### 2 [id number] #### [facility] [address] [place] [address] Monocytes (Bld) [#/Vol] 1.2 E9/L High 0.2-1.0 [facility] Comment on above: Performed By: #### 2 [id number] #### [facility] [address] [place] [address] Neutrophils (Bld) [#/Vol] 12.7 E9/L High 2.0-7.5 [facility] Comment on above: Performed By: #### 2 [id number] #### [facility] [address] [place] [address] Neutrophils/100 WBC (Bld) 81.5 % High 36.0-75.0 [facility] Comment on above: Performed By: #### 2 [id number] #### [facility] [address] [place] [address] Platelet 521.0 E9/L High 150.0-500. 0 [facility] Comment on above: Performed By: #### 2 [id number] #### [facility] [address] [place] [address] Platelet mean volume (Bld) [Entitic vol] 8.6 fL Normal 6.4-10.8 [facility] Comment on above: Performed By: #### 2 [id number] #### [facility] [address] [place] [address] RBC (Bld) [#/Vol] 3.9 E12/L Low 4.3-5.9 [facility] Comment on above: Performed By: #### 2 [id number] #### [facility] [address] [place] [address] RBC size Nom (Bld) SEE MORPHOLOGY Invalid Interpretation Code [facility] Comment on above: Performed By: #### 2 [id number] #### [facility] [address] [place] [address] WBC corrected for nucl RBC Auto (Bld) [#/Vol] 15.6 E9/L High 4.0-11.0 [facility] Comment on above: Performed By: #### 2 [id number] #### [facility] [address] [place] [address] CHEMISTRYOrdered By: SYSTEM SYSTEM on 02-20-2024 Anion gap [Moles/Vol] 15 mmol/L Normal 6 - 16 mEq/L [facility] Calcium [Mass/Vol] 9.4 mg/dL Normal 8.9 - 11. 1 mg/dL [facility] Chloride [Moles/Vol] 97 mmol/L Low 101 - 1 11 mmol/L [facility] CO2 [Moles/Vol] 28 mmol/L Normal 21 - 31 mmol/L [facility] Creatinine [Mass/Vol] 1.8 mg/dL High 0.5 - 1.3 mg/dL [facility] eGFR 43 mL/min/1.73 m2 Low >=59mL/min /1.73 m2 [facility] Glucose [Mass/Vol] 259 mg/dL High 55 - 199 mg/dL [facility] Potassium [Moles/Vol] 3.9 mmol/L Normal 3.5 - 5.3 mmol/L [facility] Sodium [Moles/Vol] 136 mmol/L Normal 135 - 145 mmol/L [facility] Urea nitrogen [Mass/Vol] 27 mg/dL High 5 - 21 mg/dL [facility] Urea nitrogen/Creatinine [Mass ratio] 15 mg/mg Normal 10 - 20 [facility] Capillary Glucose POCon 02-03 Glucose [Mass/Vol] 192 mg/dL High 55-99 [facility] Comment on above: Result Comment: Deon ETIENNE Performed By: #### 2 [id number] #### [facility] [address] [place] [address] Glucose [Mass/Vol] 180 mg/dL High 55-99 [facility] Comment on above: Result Comment: Deon ETIENNE Performed By: #### 2 [id number] #### [facility] [address] [place] [address] Glucose [Mass/Vol] 104 mg/dL High 55-99 [facility] Comment on above: Result Comment: Deon ETIENNE Performed By: #### 2 [id number] #### [facility] [address] [place] [address] Glucose [Mass/Vol] 165 mg/dL High 55-99 [facility] Comment on above: Result Comment: Deon hathaway RN/ Performed By: #### 2 [id number] #### [facility] [address] [place] [address] Glucose [Mass/Vol] 224 mg/dL High 55-99 [facility] Comment on above: Result Comment: Deon ETIENNE Performed By: #### 2 [id number] #### [facility] [address] [place] [address] Coding Queryon 02-20-2024 Coding Query Coding Query From: Eliz Diaz RN To: Ben Corrigan III, DO; Sent: 02/20/2024 14:33:58 EDT ! Subject: Coding Query Due Date/Time: 02/21/2024 14:33:00 EDT Caller Name: MYRA PICKARD SR; Caller Number: H Documentation in [...] particular answer is desired or expected. Thank you!eliz [phone] Normal [facility] HEMATOLOGYOrdered By: SYSTEM SYSTEM on 02-20-2024 Basophils/100 WBC (Bld) 0.7 % Normal 0.0 - 2.0 % [facility] Basophils/Leukocytes Auto (Bld) [Pure # fraction] 0.1 E9/L Normal 0.0 - 0.2 E9/L [facility] Eosinophils (Bld) [#/Vol] 0.2 E9/L Normal 0.0 - 0.5 E9/L [facility] Eosinophils/100 WBC (Bld) 1.6 % Normal 0.0 - 8.0 % [facility] Erythrocyte distribution width (RBC) [Ratio] 21.6 % High 10.9 - 14.2 % [facility] Hematocrit (Bld) [Volume fraction] 27.5 % Low 37.7 - 49.0 % [facility] Hemoglobin (Bld) [Mass/Vol] 8.9 g/dL Low 13.5 - 17.5 gm/dL [facility] Hypochromia Auto Ql (Bld) PRESENT *NA* (02/20/24 5:53 AM) Invalid Interpretation Code [facility] Lymphocytes (Bld) [#/Vol] 1.3 E9/L Normal 1.0 - 4.0 E9/L [facility] Lymphocytes/100 WBC (Bld) 8.3 % Low 14.0 - 50.0 % [facility] MCH (RBC) [Entitic mass] 22.9 pg Low 27.0 - 34.0 pg [facility] MCHC (RBC) [Mass/Vol] 32.2 g/dL Normal 31.4 - 36.0 gm/dL [facility] MCV (RBC) [Entitic vol] 70.9 fL Low 80.0 - 100.0 fL [facility] Microcytes Ql (Bld) PRESENT *NA* (02/20/24 5:53 AM) Invalid Interpretation Code [facility] Monocytes (Bld) [#/Vol] 1.2 E9/L High 0.2 - 1.0 E9/L [facility] Monocytes/100 WBC (Bld) 7.9 % Normal 4.0 - 14.0 % [facility] Neutrophils (Bld) [#/Vol] 12.7 E9/L High 2.0 - 7.5 E9/L [facility] Neutrophils/100 WBC (Bld) 81.5 % High 36.0 - 75.0 % [facility] Platelet 521.0 E9/L High 150.0 - 500.0 E9/L [facility] Platelet mean volume (Bld) [Entitic vol] 8.6 fL Normal 6.4 - 10.8 fL [facility] RBC (Bld) [#/Vol] 3.9 E12/L Low 4.3 - 5.9 E12/L [facility] RBC size Nom (Bld) SEE MORPHOLOGY *NA* (02/20/24 5:53 AM) Invalid Interpretation Code [facility] WBC corrected for nucl RBC Auto (Bld) [#/Vol] 15.6 E9/L High 4.0 - 11.0 E9/L [facility] Interdisciplinary Note - Jorge e Manageron 02-20-2024 Interdisciplinary Note - Power Plant Superintendent Interdisciplinary Note - Power Plant Superintendent This SW rounded with patient this morning. He is aware that precert is still pending for [place] and SW will update him as soon as determination is received. SW will also update his . Call placed to patient's this afternoon and a message was left letting her know that the precert remains pending at this time. Normal [facility] Comment on above: Result Comment: Elec tronically Signed By: Fely Narvaez\.br\Date and Time Signed: 02/20/24 15:25 EDT Interdisciplinary Note - Power Plant Superintendent Interdisciplinary Note - Power Plant Superintendent This SW rounded with patient this morning. He is aware that precert is still pending for [place] and SW will update him as soon as determination is received. SW will also update his . Normal [facility] Comment on above: Result Comment: Elec tronically Signed By: Fely Narvaez\.br\Date and Time Signed: 02/20/24 13:55 EDT eGFRon 02-20-2024 eGFR 43 mL/min/1.73 m2 Low >=59 [facility] Comment on above: Order Comment: Order added by Discern Expert. Performed By: #### 1 [id number] #### [facility] [address] [place] [address] BMPon 02-19-2024 Anion gap [Moles/Vol] 12 mmol/L Normal 6-16 [facility] Comment on above: Performed By: #### 2 [id number] #### [facility] [address] [place] [address] Calcium [Mass/Vol] 8.9 mg/dL Normal 8.9-11.1 [facility] Comment on above: Performed By: #### 2 [id number] #### [facility] [address] [place] [address] Chloride [Moles/Vol] 100 mmol/L Low 101-111 [facility] Comment on above: Performed By: #### 2 [id number] #### [facility] [address] [place] [address] CO2 [Moles/Vol] 28 mmol/L Normal 21-31 [facility] Comment on above: Performed By: #### 2 [id number] #### [facility] [address] [place] [address] Creatinine [Mass/Vol] 1.7 mg/dL High 0.5-1.3 [facility] Comment on above: Performed By: #### 2 [id number] #### [facility] [address] [place] [address] Glucose [Mass/Vol] 235 mg/dL High 55-199 [facility] Comment on above: Performed By: #### 2 [id number] #### [facility] [address] [place] [address] Potassium [Moles/Vol] 4.1 mmol/L Normal 3.5-5.3 [facility] Comment on above: Performed By: #### 2 [id number] #### [facility] [address] [place] [address] Sodium [Moles/Vol] 136 mmol/L Normal 135-145 [facility] Comment on above: Performed By: #### 2 [id number] #### [facility] [address] [place] [address] Urea nitrogen [Mass/Vol] 25 mg/dL High 5-21 [facility] Comment on above: Performed By: #### 2 [id number] #### [facility] [address] [place] [address] Urea nitrogen/Creatinine [Mass ratio] 15 No Units Normal 10-20 [facility] Comment on above: Performed By: #### 2 443903 #### [facility] [address] [place] [address] CBC w/ Auto Diffon 4 Basophils/100 WBC (Bld) 1.6 % Normal 0.0-2.0 [facility] Comment on above: Performed By: #### 2 [id number] #### [facility] [address] [place] [address] Basophils/Leukocytes Auto (Bld) [Pure # fraction] 0.2 E9/L Normal 0.0-0.2 [facility] Comment on above: Performed By: #### 2 360856 #### [facility] [address] [place] [address] Eosinophils (Bld) [#/Vol] 0.5 E9/L Normal 0.0-0.5 [facility] Comment on above: Performed By: #### 2 [id number] #### [facility] [address] [place] [address] Eosinophils/100 WBC (Bld) 5.1 % Normal 0.0-8.0 [facility] Comment on above: Performed By: #### 2 [id number] #### [facility] [address] [place] [address] Erythrocyte distribution width (RBC) [Ratio] 21.6 % High 10.9-14.2 [facility] Comment on above: Performed By: #### 2 [id number] #### [facility] [address] [place] [address] Hematocrit (Bld) [Volume fraction] 24.4 % Low 37.7-49.0 [facility] Comment on above: Performed By: #### 2 675147 #### [facility] [address] [place] [address] Hemoglobin (Bld) [Mass/Vol] 7.9 g/dL Low 13.5-17.5 [facility] Comment on above: Performed By: #### 2 513324 #### [facility] [address] [place] [address] Hypochromia Auto Ql (Bld) PRESENT Invalid Interpretation Code [facility] Comment on above: Performed By: #### 2 396102 #### [facility] [address] [place] [address] Lymphocytes (Bld) [#/Vol] 1.9 E9/L Normal 1.0-4.0 [facility] Comment on above: Performed By: #### 2 617504 #### [facility] [address] [place] [address] Lymphocytes/100 WBC (Bld) 18.4 % Normal 14.0-50.0 [facility] Comment on above: Performed By: #### 2 [id number] #### [facility] [address] [place] [address] MCH (RBC) [Entitic mass] 22.8 pg Low 27.0-34.0 [facility] Comment on above: Performed By: #### 2 [id number] #### [facility] [address] [place] [address] MCHC (RBC) [Mass/Vol] 32.3 g/dL Normal 31.4-36.0 [facility] Comment on above: Performed By: #### 2 [id number] #### [facility] [address] [place] [address] MCV (RBC) [Entitic vol] 70.4 fL Low 80.0-100.0 [facility] Comment on above: Performed By: #### 2 [id number] #### [facility] [address] [place] [address] Monocytes (Bld) [#/Vol] 1.0 E9/L Normal 0.2-1.0 [facility] Comment on above: Performed By: #### 2 [id number] #### [facility] [address] [place] [address] Neutrophils (Bld) [#/Vol] 6.7 E9/L Normal 2.0-7.5 [facility] Comment on above: Performed By: #### 2 565337 #### [facility] [address] [place] [address] Neutrophils/100 WBC (Bld) 65.1 % Normal 36.0-75.0 [facility] Comment on above: Performed By: #### 2 [id number] #### [facility] [address] [place] [address] Platelet 444.0 E9/L Normal 150.0-500. 0 [facility] Comment on above: Performed By: #### 2 [id number] #### [facility] [address] [place] [address] Platelet mean volume (Bld) [Entitic vol] 8.1 fL Normal 6.4-10.8 [facility] Comment on above: Performed By: #### 2 355973 #### [facility] [address] [place] [address] RBC (Bld) [#/Vol] 3.5 E12/L Low 4.3-5.9 [facility] Comment on above: Performed By: #### 2 [id number] #### [facility] [address] [place] [address] RBC size Nom (Bld) SEE MORPHOLOGY Invalid Interpretation Code [facility] Comment on above: Performed By: #### 2 [id number] #### [facility] [address] [place] [address] WBC corrected for nucl RBC Auto (Bld) [#/Vol] 10.3 E9/L Normal 4.0-11.0 [facility] Comment on above: Performed By: #### 2 [id number] #### [facility] [address] [place] [address] CHEMISTRYOrdered By: SYSTEM SYSTEM on 02-19-2024 Anion gap [Moles/Vol] 12 mmol/L Normal 6 - 16 mEq/L [facility] Calcium [Mass/Vol] 8.9 mg/dL Normal 8.9 - 11. 1 mg/dL [facility] Chloride [Moles/Vol] 100 mmol/L Low 101 - 1 11 mmol/L [facility] CO2 [Moles/Vol] 28 mmol/L Normal 21 - 31 mmol/L [facility] Creatinine [Mass/Vol] 1.7 mg/dL High 0.5 - 1.3 mg/dL [facility] eGFR 46 mL/min/1.73 m2 Low >=59mL/min /1.73 m2 [facility] Glucose [Mass/Vol] 235 mg/dL High 55 - 199 mg/dL [facility] Potassium [Moles/Vol] 4.1 mmol/L Normal 3.5 - 5.3 mmol/L [facility] Sodium [Moles/Vol] 136 mmol/L Normal 135 - 145 mmol/L [facility] Urea nitrogen [Mass/Vol] 25 mg/dL High 5 - 21 mg/dL [facility] Urea nitrogen/Creatinine [Mass ratio] 15 mg/mg Normal 10 - 20 [facility] Capillary Glucose POCon 02-03 Glucose [Mass/Vol] 250 mg/dL High 55-99 [facility] Comment on above: Result Comment: Deon ETIENNE Performed By: #### 2 [id number] #### [facility] [address] [place] [address] Glucose [Mass/Vol] 272 mg/dL High 55-99 [facility] Comment on above: Result Comment: Deon ETIENNE Performed By: #### 2 [id number] #### [facility] [address] [place] [address] Glucose [Mass/Vol] 277 mg/dL High 55-99 [facility] Comment on above: Result Comment: Deon ETIENNE Performed By: #### 2 [id number] #### [facility] [address] [place] [address] Glucose [Mass/Vol] 217 mg/dL High 55-99 [facility] Comment on above: Result Comment: Deon ETIENNE Performed By: #### 2 [id number] #### [facility] [address] [place] [address] HEMATOLOGYOrdered By: SYSTEM SYSTEM on 02-19-2024 Basophils/100 WBC (Bld) 1.6 % Normal 0.0 - 2.0 % [facility] Basophils/Leukocytes Auto (Bld) [Pure # fraction] 0.2 E9/L Normal 0.0 - 0.2 E9/L [facility] Eosinophils (Bld) [#/Vol] 0.5 E9/L Normal 0.0 - 0.5 E9/L [facility] Eosinophils/100 WBC (Bld) 5.1 % Normal 0.0 - 8.0 % [facility] Erythrocyte distribution width (RBC) [Ratio] 21.6 % High 10.9 - 14.2 % [facility] Hematocrit (Bld) [Volume fraction] 24.4 % Low 37.7 - 49.0 % [facility] Hemoglobin (Bld) [Mass/Vol] 7.9 g/dL Low 13.5 - 17.5 gm/dL [facility] Hypochromia Auto Ql (Bld) PRESENT *NA* (02/19/24 6:11 AM) Invalid Interpretation Code [facility] Lymphocytes (Bld) [#/Vol] 1.9 E9/L Normal 1.0 - 4.0 E9/L [facility] Lymphocytes/100 WBC (Bld) 18.4 % Normal 14.0 - 50.0 % [facility] MCH (RBC) [Entitic mass] 22.8 pg Low 27.0 - 34.0 pg [facility] MCHC (RBC) [Mass/Vol] 32.3 g/dL Normal 31.4 - 36.0 gm/dL [facility] MCV (RBC) [Entitic vol] 70.4 fL Low 80.0 - 100.0 fL [facility] Monocytes (Bld) [#/Vol] 1.0 E9/L Normal 0.2 - 1.0 E9/L [facility] Monocytes/100 WBC (Bld) 9.8 % Normal 4.0 - 14.0 % [facility] Neutrophils (Bld) [#/Vol] 6.7 E9/L Normal 2.0 - 7.5 E9/L [facility] Neutrophils/100 WBC (Bld) 65.1 % Normal 36.0 - 75.0 % [facility] Platelet 444.0 E9/L Normal 150.0 - 500.0 E9/L [facility] Platelet mean volume (Bld) [Entitic vol] 8.1 fL Normal 6.4 - 10.8 fL [facility] RBC (Bld) [#/Vol] 3.5 E12/L Low 4.3 - 5.9 E12/L [facility] RBC size Nom (Bld) SEE MORPHOLOGY *NA* (02/19/24 6:11 AM) Invalid Interpretation Code [facility] WBC corrected for nucl RBC Auto (Bld) [#/Vol] 10.3 E9/L Normal 4.0 - 11.0 E9/L [facility] Interdisciplinary Note - Jorge e Manageron 02-19-2024 Interdisciplinary Note - Power Plant Superintendent Interdisciplinary Note - Power Plant Superintendent This SW met with patient today to discuss discharge plans. Plan remains for patient to go to [facility] once precert is obtained. All updates have been sent to [facility] for the precert, which was submitted on Monday. Patient requested that SW contact his once precert is obtained, or before the end of the day if not obtained today. This SW made a tc to patient's and let her know that precert is still pending. She voiced understanding. Normal [facility] Comment on above: Result Comment: Elec tronically Signed By: Fely Narvaez.nile\Date and Time Signed: 02/19/24 15:59 EDT Interdisciplinary Note - Power Plant Superintendent Interdisciplinary Note - Power Plant Superintendent This SW met with patient today to discuss discharge plans. Plan remains for patient to go to [facility] in [place] once precert is obtained. All updates have been sent to [place] [place] for the precert, which was submitted on Monday. Patient requested that SW contact his once precert is obtained, or before the end of the day if not obtained today. Normal [facility] Comment on above: Result Comment: Elec tronically Signed By: Fely Narvaez.br\Date and Time Signed: 02/19/24 10:44 EDT Operative [...] well. No complications. All counts were correct. Mike Montes M.D. ca Dictated: 02/12/2024 [id number] Transcribed: 02/13/2024 [facility] Comment on above: Result Comment: Elec tronically Signed By: Mike Montes MD\.br\Date and Time Signed: 02/19/24 09:51 EDT Operative Report Operative Report Patient: MYRA PICKARD SR Age: 58 years Sex: Male [...] tolerated the procedure well without complications.. Normal [facility] Comment on above: Result Comment: Elec tronically Signed By: MD Juanito, Laura Rodriguez\.br\Date and Time Signed: 02/19/24 08:36 EDT eGFRon 02-19-2024 eGFR 46 mL/min/1.73 m2 Low >=59 [facility] Comment on above: Order Comment: Order added by Discern Expert. Performed By: #### 1 [id number] #### [facility] [address] [place] [address] Capillary Glucose POCon 02-03 Glucose [Mass/Vol] 348 mg/dL High 55-99 [facility] Comment on above: Result Comment: Deon hathaway RN/ Performed By: #### 2 [id number] #### [facility] [address] [place] [address] Glucose [Mass/Vol] 323 mg/dL High 55-99 [facility] Comment on above: Result Comment: Deon ETIENNE Performed By: #### 2 [id number] #### [facility] [address] [place] [address] Glucose [Mass/Vol] 323 mg/dL High 55-99 [facility] Comment on above: Result Comment: Deon ETIENNE Performed By: #### 2 [id number] #### [facility] [address] [place] [address] Glucose [Mass/Vol] 210 mg/dL High 55-99 [facility] Comment on above: Result Comment: Deon ETIENNE Performed By: #### 2 [id number] #### [facility] [address] [place] [address] BMPon 02-17-2024 Anion gap [Moles/Vol] 13 mmol/L Normal 6-16 [facility] Comment on above: Performed By: #### 2 [id number] #### [facility] [address] [place] [address] Calcium [Mass/Vol] 9.3 mg/dL Normal 8.9-11.1 [facility] Comment on above: Performed By: #### 2 [id number] #### [facility] [address] [place] [address] Chloride [Moles/Vol] 98 mmol/L Low 101-111 [facility] Comment on above: Performed By: #### 2 [id number] #### [facility] [address] [place] [address] CO2 [Moles/Vol] 28 mmol/L Normal 21-31 [facility] Comment on above: Performed By: #### 2 [id number] #### [facility] [address] [place] [address] Creatinine [Mass/Vol] 1.8 mg/dL High 0.5-1.3 [facility] Comment on above: Performed By: #### 2 [id number] #### [facility] [address] [place] [address] Glucose [Mass/Vol] 374 mg/dL High 55-199 [facility] Comment on above: Performed By: #### 2 [id number] #### [facility] [address] [place] [address] Potassium [Moles/Vol] 4.6 mmol/L Normal 3.5-5.3 [facility] Comment on above: Performed By: #### 2 [id number] #### [facility] [address] [place] [address] Sodium [Moles/Vol] 134 mmol/L Low 135-145 [facility] Comment on above: Performed By: #### 2 [id number] #### [facility] [address] [place] [address] Urea nitrogen [Mass/Vol] 25 mg/dL High 5-21 [facility] Comment on above: Performed By: #### 2 [id number] #### [facility] [address] [place] [address] Urea nitrogen/Creatinine [Mass ratio] 14 No Units Normal 10-20 [facility] Comment on above: Performed By: #### 2 [id number] #### [facility] [address] [place] [address] CBC w/ Auto Diffon 4 Basophils/100 WBC (Bld) 1.0 % Normal 0.0-2.0 [facility] Comment on above: Performed By: #### 2 [id number] #### [facility] [address] [place] [address] Basophils/Leukocytes Auto (Bld) [Pure # fraction] 0.1 E9/L Normal 0.0-0.2 [facility] Comment on above: Performed By: #### 2 [id number] #### [facility] [address] [place] [address] Eosinophils (Bld) [#/Vol] 0.5 E9/L Normal 0.0-0.5 [facility] Comment on above: Performed By: #### 2 [id number] #### [facility] [address] [place] [address] Eosinophils/100 WBC (Bld) 5.0 % Normal 0.0-8.0 [facility] Comment on above: Performed By: #### 2 [id number] #### [facility] [address] [place] [address] Erythrocyte distribution width (RBC) [Ratio] 21.6 % High 10.9-14.2 [facility] Comment on above: Performed By: #### 2 [id number] #### [facility] [address] [place] [address] Hematocrit (Bld) [Volume fraction] 24.8 % Low 37.7-49.0 [facility] Comment on above: Performed By: #### 2 [id number] #### [facility] [address] [place] [address] Hemoglobin (Bld) [Mass/Vol] 8.5 g/dL Low 13.5-17.5 [facility] Comment on above: Performed By: #### 2 [id number] #### [facility] [address] [place] [address] Lymphocytes (Bld) [#/Vol] 1.6 E9/L Normal 1.0-4.0 [facility] Comment on above: Performed By: #### 2 [id number] #### [facility] [address] [place] [address] Lymphocytes/100 WBC (Bld) 15.2 % Normal 14.0-50.0 [facility] Comment on above: Performed By: #### 2 [id number] #### [facility] [address] [place] [address] MCH (RBC) [Entitic mass] 24.3 pg Low 27.0-34.0 [facility] Comment on above: Performed By: #### 2 [id number] #### [facility] [address] [place] [address] MCHC (RBC) [Mass/Vol] 34.2 g/dL Normal 31.4-36.0 [facility] Comment on above: Performed By: #### 2 [id number] #### [facility] [address] [place] [address] MCV (RBC) [Entitic vol] 70.9 fL Low 80.0-100.0 [facility] Comment on above: Performed By: #### 2 [id number] #### [facility] [address] [place] [address] Microcytes Ql (Bld) PRESENT Invalid Interpretation Code [facility] Comment on above: Performed By: #### 2 [id number] #### [facility] [address] [place] [address] Monocytes (Bld) [#/Vol] 1.1 E9/L High 0.2-1.0 [facility] Comment on above: Performed By: #### 2 [id number] #### [facility] [address] [place] [address] Neutrophils (Bld) [#/Vol] 7.1 E9/L Normal 2.0-7.5 [facility] Comment on above: Performed By: #### 2 [id number] #### [facility] [address] [place] [address] Neutrophils/100 WBC (Bld) 68.3 % Normal 36.0-75.0 [facility] Comment on above: Performed By: #### 2 [id number] #### [facility] [address] [place] [address] Platelet 395.0 E9/L Normal 150.0-500. 0 [facility] Comment on above: Performed By: #### 2 [id number] #### [facility] [address] [place] [address] Platelet mean volume (Bld) [Entitic vol] 8.2 fL Normal 6.4-10.8 [facility] Comment on above: Performed By: #### 2 [id number] #### [facility] [address] [place] [address] RBC (Bld) [#/Vol] 3.5 E12/L Low 4.3-5.9 [facility] Comment on above: Performed By: #### 2 [id number] #### [facility] [address] [place] [address] RBC size Nom (Bld) SEE MORPHOLOGY Invalid Interpretation Code [facility] Comment on above: Performed By: #### 2 [id number] #### [facility] [address] [place] [address] WBC corrected for nucl RBC Auto (Bld) [#/Vol] 10.4 E9/L Normal 4.0-11.0 [facility] Comment on above: Performed By: #### 2 [id number] #### [facility] [address] [place] [address] Capillary Glucose POCon 02-03 Glucose [Mass/Vol] 366 mg/dL High 55-99 [facility] Comment on above: Result Comment: Deon hathaway RN/ Performed By: #### 2 [id number] #### [facility] [address] [place] [address] Glucose [Mass/Vol] 314 mg/dL High 55-99 [facility] Comment on above: Result Comment: Deon ETIENNE Performed By: #### 2 [id number] #### [facility] [address] [place] [address] Glucose [Mass/Vol] 389 mg/dL High 55-99 [facility] Comment on above: Result Comment: Deon ETIENNE Performed By: #### 2 [id number] #### [facility] [address] [place] [address] Glucose [Mass/Vol] 298 mg/dL [facility] [address] [place] [address] Comment on above: Result Comment: Deon ETIENNE Performed By: #### 2 [id number] #### [facility] [address] [place] [address] HEMATOLOGYOrdered By: SYSTEM SYSTEM on 02-17-2024 Microcytes Ql (Bld) PRESENT *NA* (02/17/24 10:59 AM) Invalid Interpretation Code Remisol Heme eGFRon 02-17-2024 eGFR 43 mL/min/1.73 m2 Low >=59 [facility] Comment on above: Order Comment: Order added by Discern Expert. Performed By: #### 1 [id number] #### [facility] [address] [place] [address] BMPon 02-16-2024 Anion gap [Moles/Vol] 12 mmol/L Normal 6-16 [facility] Comment on above: Performed By: #### 2 [id number] #### [facility] [address] [place] [address] Calcium [Mass/Vol] 8.5 mg/dL Low 8.9-11.1 [facility] Comment on above: Performed By: #### 2 [id number] #### [facility] [address] [place] [address] Chloride [Moles/Vol] 100 mmol/L Low 101-111 [facility] Comment on above: Performed By: #### 2 [id number] #### [facility] [address] [place] [address] CO2 [Moles/Vol] 27 mmol/L Normal 21-31 [facility] Comment on above: Performed By: #### 2 [id number] #### [facility] [address] [place] [address] Creatinine [Mass/Vol] 1.8 mg/dL High 0.5-1.3 [facility] Comment on above: Performed By: #### 2 [id number] #### [facility] [address] [place] [address] Glucose [Mass/Vol] 242 mg/dL High 55-199 [facility] Comment on above: Performed By: #### 2 [id number] #### [facility] [address] [place] [address] Potassium [Moles/Vol] 3.8 mmol/L Normal 3.5-5.3 [facility] Comment on above: Performed By: #### 2 [id number] #### [facility] [address] [place] [address] Sodium [Moles/Vol] 135 mmol/L Normal 135-145 [facility] Comment on above: Performed By: #### 2 [id number] #### [facility] [address] [place] [address] Urea nitrogen [Mass/Vol] 25 mg/dL High 5-21 [facility] Comment on above: Performed By: #### 2 [id number] #### [facility] [address] [place] [address] Urea nitrogen/Creatinine [Mass ratio] 14 No Units Normal 10-20 [facility] Comment on above: Performed By: #### 2 [id number] #### [facility] [address] [place] [address] CBC w/ Auto Diffon 4 Basophils/100 WBC (Bld) 0.7 % Normal 0.0-2.0 [facility] Comment on above: Performed By: #### 2 [id number] #### [facility] [address] [place] [address] Basophils/Leukocytes Auto (Bld) [Pure # fraction] 0.1 E9/L Normal 0.0-0.2 [facility] Comment on above: Performed By: #### 2 [id number] #### [facility] [address] [place] [address] Eosinophils (Bld) [#/Vol] 0.5 E9/L Normal 0.0-0.5 [facility] Comment on above: Performed By: #### 2 884192 #### [facility] [address] [place] [address] Eosinophils/100 WBC (Bld) 4.2 % Normal 0.0-8.0 [facility] Comment on above: Performed By: #### 2 [id number] #### [facility] [address] [place] [address] Erythrocyte distribution width (RBC) [Ratio] 21.5 % High 10.9-14.2 [facility] Comment on above: Performed By: #### 2 [id number] #### [facility] [address] [place] [address] Hematocrit (Bld) [Volume fraction] 22.9 % Low 37.7-49.0 [facility] Comment on above: Performed By: #### 2 [id number] #### [facility] [address] [place] [address] Hemoglobin (Bld) [Mass/Vol] 7.6 g/dL Low 13.5-17.5 [facility] Comment on above: Performed By: #### 2 [id number] #### [facility] [address] [place] [address] Hypochromia Auto Ql (Bld) PRESENT Invalid Interpretation Code [facility] Comment on above: Performed By: #### 2 [id number] #### [facility] [address] [place] [address] Lymphocytes (Bld) [#/Vol] 1.4 E9/L Normal 1.0-4.0 [facility] Comment on above: Performed By: #### 2 [id number] #### [facility] [address] [place] [address] Lymphocytes/100 WBC (Bld) 12.7 % Low 14.0-50.0 [facility] Comment on above: Performed By: #### 2 785374 #### [facility] [address] [place] [address] MCH (RBC) [Entitic mass] 23.4 pg Low 27.0-34.0 [facility] Comment on above: Performed By: #### 2 [id number] #### [facility] [address] [place] [address] MCHC (RBC) [Mass/Vol] 33.0 g/dL Normal 31.4-36.0 [facility] Comment on above: Performed By: #### 2 [id number] #### [facility] [address] [place] [address] MCV (RBC) [Entitic vol] 70.9 fL Low 80.0-100.0 [facility] Comment on above: Performed By: #### 2 772331 #### [facility] [address] [place] [address] Microcytes Ql (Bld) PRESENT Invalid Interpretation Code [facility] Comment on above: Performed By: #### 2 796138 #### [facility] [address] [place] [address] Monocytes (Bld) [#/Vol] 1.3 E9/L High 0.2-1.0 [facility] Comment on above: Performed By: #### 2 640877 #### [facility] [address] [place] [address] Neutrophils (Bld) [#/Vol] 7.7 E9/L High 2.0-7.5 [facility] Comment on above: Performed By: #### 2 697001 #### [facility] [address] [place] [address] Neutrophils/100 WBC (Bld) 70.1 % Normal 36.0-75.0 [facility] Comment on above: Performed By: #### 2 715467 #### [facility] [address] [place] [address] Platelet 284.0 E9/L Normal 150.0-500. 0 [facility] Comment on above: Performed By: #### 2 [id number] #### [facility] [address] [place] [address] Platelet mean volume (Bld) [Entitic vol] 8.4 fL Normal 6.4-10.8 [facility] Comment on above: Performed By: #### 2 950651 #### [facility] [address] [place] [address] RBC (Bld) [#/Vol] 3.2 E12/L Low 4.3-5.9 [facility] Comment on above: Performed By: #### 2 947948 #### [facility] [address] [place] [address] RBC size Nom (Bld) SEE MORPHOLOGY Invalid Interpretation Code [facility] Comment on above: Performed By: #### 2 207131 #### [facility] [address] [place] [address] WBC corrected for nucl RBC Auto (Bld) [#/Vol] 11.0 E9/L Normal 4.0-11.0 [facility] Comment on above: Performed By: #### 2 126462 #### [facility] [address] [place] [address] Capillary Glucose POCon 02-03 Glucose [Mass/Vol] 266 mg/dL High 55-99 [facility] Comment on above: Result Comment: Doen ETIENNE Performed By: #### 2 [id number] #### [facility] [address] [place] [address] Glucose [Mass/Vol] 319 mg/dL High 55-99 [facility] Comment on above: Result Comment: Deon ETIENNE Performed By: #### 2 [id number] #### [facility] [address] [place] [address] Glucose [Mass/Vol] 403 mg/dL High 55-99 [facility] Comment on above: Result Comment: Deon ETIENNE Performed By: #### 2 [id number] #### [facility] [address] [place] [address] Glucose [Mass/Vol] 319 mg/dL High 55-99 [facility] Comment on above: Result Comment: Deon ETIENNE Performed By: #### 2 [id number] #### [facility] [address] [place] [address] Glucose [Mass/Vol] 253 mg/dL High 55-99 [facility] Comment on above: Result Comment: Deon ETIENNE Performed By: #### 2 [id number] #### [facility] [address] [place] [address] Coding Queryon 02-16-2024 Coding Query Coding Query From: Eliz Diaz RN To: Ealn Antonio MD; Sent: 02/13/2024 10:18:56 EDT ! Subject: Coding Query Due Date/Time: 02/14/2024 10:18:00 EDT Caller Name: MYRA PICKARD SR; Caller Number: H Documentation in [...] particular answer is desired or expected. Thank you!eliz [phone] From: Marisela HERRERA, Elan Robbins To: Joe STERN, Eliz Daniel; Sent: 02/16/2024 18:24:47 EDT Subject: RE: Coding Query Caller Name: MATTEO CHRISTIAN MYRA Daniel; Caller Number: H Dx: acute blood loss anemia Normal [facility] Inpatient Clinical Summaryon 02-16-2024 Inpatient Clinical Summary Inpatient Clinical Summary [place] [address] Clinical Summary Person Information: Name: MATTEO CHRISTIAN MYRA Daniel Age: 58 Years : 1965 Sex: Male PCP: TERESA LYNCH DO Marital Status: Race: White Ethnicity: Non- or Language: Namibian Visit Id: Visit Reason: I70.261 Speciality: Acuity: Enc Type: Inpatient Med Service: Medical Arrival: 02/12/2024 11:13:26 Discharge: Dispo Type: Address: [address] [place] [id number] Provider Notes: Diagnosis: 1:Hx of right BKA; [...] inhale twice. Care Team Members: Attending Physician: Mike Montes MD Consulting Physician: Mike Montes MD Referring Physician: Mike Montes MD Follow up: Patient Education Information: Normal [facility] Patient Summaryon 02-16-2024 Inpatient Patient Summary Inpatient Patient Summary [place] [id number] Patient Discharge Instructions PERSON INFORMATION Name: MYRA PICKARD SR Date of : 1965 Current Date: 02/16/2024 10:02:10 PHYSICIANS Admitting Physician: Mike Montes MD Primary Care Physician: TERESA LYNCH DO PCP Comment: Discharge Diagnosis: 1:Hx of right BKA; 2:Essential hypertension; 3:Hyperlipidemia; 4:Anemia; 5: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 Comment: MATTEO Morrow SR, SCOTT A, have received the attached [...] Last Dose: (more content not included)... Normal [facility] Insurance Correspondence Off 02-16-2024 Insurance Correspondence Office Insurance Correspondence Office [...] well. No complications. All counts were correct. Mike Montes M.D. noe Dictated: 02/12/2024 [id number] Transcribed: 02/13/2024 [facility] Interdisciplinary Note - Jorge e Manageron 02-16-2024 Interdisciplinary Note - Power Plant Superintendent Interdisciplinary Note - Power Plant Superintendent This SW received notification from [facility] that patient's had called and wanted to cancel the Acute Rehab and proceed with [facility]. TC from Acute Rehab was received asking if this was accurate and if patient understood the difference between Acute Rehab and SNF. MILANA met with patient and his today to update them that Acute Rehab had received precert and that per Dr. Cantu, patient was ready to d/c as soon as precert was obtained; therefore if going to Acute Rehab, he would be discharged there today. MILANA also explained that if going to [facility], precert would have to be obtained. MILANA spent a lengthy amount of time going over the differences between the 2 faciliites with patient. He informed SW that his choice was to go to [facility], not Acute Rehab. SW notified Acute Rehab [...] 3 steps to enter their home. Normal [facility] Comment on above: Result Comment: Elec tronically Signed By: Evens SÁNCHEZ, Fely Martin\.br\Date and Time Signed: 02/16/24 12:45 EDT eGFRon 02-16-2024 eGFR 43 mL/min/1.73 m2 Low >=59 [facility] Comment on above: Order Comment: Order added by Discern Expert. Performed By: #### 1 [id number] #### [facility] [address] [facility] [place] [address] BMPon 02-15-2024 Anion gap [Moles/Vol] 9 mmol/L Normal 6-16 [facility] Comment on above: Performed By: #### 2 585557 #### [facility] [address] [place] [address] Calcium [Mass/Vol] 8.3 mg/dL Low 8.9-11.1 [facility] Comment on above: Performed By: #### 2 [id number] #### [facility] [address] [place] [address] Chloride [Moles/Vol] 98 mmol/L Low 101-111 [facility] Comment on above: Performed By: #### 2 [id number] #### [facility] [address] [place] [address] CO2 [Moles/Vol] 30 mmol/L Normal 21-31 [facility] Comment on above: Performed By: #### 2 [id number] #### [facility] [address] [place] [address] Creatinine [Mass/Vol] 1.9 mg/dL High 0.5-1.3 [facility] Comment on above: Performed By: #### 2 [id number] #### [facility] [address] [place] [address] Glucose [Mass/Vol] 319 mg/dL High 55-199 [facility] Comment on above: Performed By: #### 2 [id number] #### [facility] [address] [place] [address] Potassium [Moles/Vol] 3.9 mmol/L Normal 3.5-5.3 [facility] Comment on above: Performed By: #### 2 645247 #### [facility] [address] [place] [address] Sodium [Moles/Vol] 133 mmol/L Low 135-145 [facility] Comment on above: Performed By: #### 2 893755 #### [facility] [address] [place] [address] Urea nitrogen [Mass/Vol] 25 mg/dL High 5-21 [facility] Comment on above: Performed By: #### 2 503026 #### [facility] [address] [place] [address] Urea nitrogen/Creatinine [Mass ratio] 13 No Units Normal 10-20 [facility] Comment on above: Performed By: #### 2 [id number] #### [facility] [address] [place] [address] CBC w/Indiceson 02-15-2024 Erythrocyte distribution width (RBC) [Ratio] 20.9 % High 10.9-14.2 [facility] Comment on above: Performed By: #### 2 [id number] #### [facility] [address] [place] [address] Hematocrit (Bld) [Volume fraction] 22.2 % Low 37.7-49.0 [facility] Comment on above: Performed By: #### 2 538955 #### [facility] [address] [place] [address] Hemoglobin (Bld) [Mass/Vol] 7.7 g/dL Low 13.5-17.5 [facility] Comment on above: Performed By: #### 2 707203 #### [facility] [address] [place] [address] MCH (RBC) [Entitic mass] 24.3 pg Low 27.0-34.0 [facility] Comment on above: Performed By: #### 2 259275 #### [facility] [address] [place] [address] MCHC (RBC) [Mass/Vol] 34.6 g/dL Normal 31.4-36.0 [facility] Comment on above: Performed By: #### 2 733286 #### [facility] [address] [place] [address] MCV (RBC) [Entitic vol] 70.2 fL Low 80.0-100.0 [facility] Comment on above: Performed By: #### 2 [id number] #### [facility] [address] [place] [address] Platelet 239.0 E9/L Normal 150.0-500. 0 [facility] Comment on above: Performed By: #### 2 617197 #### [facility] [address] [place] [address] Platelet mean volume (Bld) [Entitic vol] 8.2 fL Normal 6.4-10.8 [facility] Comment on above: Performed By: #### 2 858313 #### [facility] [address] [place] [address] RBC (Bld) [#/Vol] 3.2 E12/L Low 4.3-5.9 [facility] Comment on above: Performed By: #### 2 [id number] #### [facility] [address] [place] [address] RBC size Nom (Bld) NORMAL Invalid Interpretation Code [facility] Comment on above: Performed By: #### 2 [id number] #### [facility] [address] [place] [address] WBC corrected for nucl RBC Auto (Bld) [#/Vol] 9.0 E9/L Normal 4.0-11.0 [facility] Comment on above: Performed By: #### 2 [id number] #### [facility] [address] [place] [address] CHEMISTRYOrdered By: SYSTEM SYSTEM on 02-15-2024 Magnesium [Mass/Vol] 1.7 mg/dL Normal 1.3 - 2 .4 mg/dL Remisol Chem Phosphate [Mass/Vol] 3.8 mg/dL Normal 1.9 - 4 .6 mg/dL Remisol Chem COAGULATIONOrdered By: Nely on Bruce on 02-15-2024 aPTT Coag (PPP) [Time] 28.6 s Normal 25.1 - 36.5 second(s) [facility] Comment on above: Interpretive Data: Mari yap 15 days - 4 weeks 1 - [...] the same coagulation reagent and instrumentation as [facility]. Currently there are no coagulation studies available worldwide for children to 14 days, and no normal ranges. Heparin therapeutic range (represented by Anti-Factor Xa activity of 0.2 - 0.4 U/mL) corresponds to PTT of 56.6 - 109.0 sec. INR Coag (PPP) [Relative time] 1.09 {INR} Invalid Interpretation Code [facility] Comment on above: Interpretive Data: I NR results are specifically intended to assess patients stabilized on long-term Anticoagulation therapy suggested INR s Less Intensive Anticoagulation 2.0 3.0 Conventional Range 3.0 4.5 PT Coag (PPP) [Time] 12.2 s Normal 9.4 - 1 2.5 second(s) [facility] Comment on above: Interpretive Data: 1 5 days - 4 weeks 1 - 5 months 6 -11 months 1 5 years 6 10 years 11 -17 years Mean: 11.2 (9.5 12.6) Mean: 11.0 (9.7 12.8) Mean: 11.0 (9.8 13.0) Mean: 11.3 (9.9 13.4) Mean: 11.7 (10.0 14.6) Mean: 11.8 (10.0 - 14.1) Pediatric Reference ranges were obtained from a study by brett Padilla al. prepared from 1437 samples obtained at 7 different centers using the same coagulation reagent and instrumentation as [facility]. Currently there are no coagulation studies available worldwide for children to 14 days, and no normal ranges. Capillary Glucose POCon 02-03 Glucose [Mass/Vol] 398 mg/dL High 55-99 [facility] Comment on above: Result Comment: Deon ETIENNE Performed By: #### 2 [id number] #### [facility] [address] [place] [address] Glucose [Mass/Vol] 337 mg/dL High 55-99 [facility] Comment on above: Result Comment: Deon ETIENNE Performed By: #### 2 [id number] #### [facility] [address] [place] [address] Glucose [Mass/Vol] 228 mg/dL High [address] [place] [address] Comment on above: Result Comment: Deon ETIENNE Performed By: #### 2 [id number] #### [facility] [address] [place] [address] Glucose [Mass/Vol] 309 mg/dL High 55-99 [facility] Comment on above: Result Comment: Deon ETIENNE Performed By: #### 2 [id number] #### [facility] [address] [place] [address] Interdisciplinary Note - Jorge e Manageron 02-15-2024 Interdisciplinary Note - Power Plant Superintendent Interdisciplinary Note - Power Plant Superintendent CRM to room 309 Patient is awake, alert and oriented. Patient is from home with his spouse. Patient verified PCP, DME and insurance. Patient is here as inpatient. Patient had Right BKA. Patient is assigned to Dr Antonio. Vascular Dr Montes did surgery. Patient is getting transfusion PRBC. Patient will need PT/OT added when appropriate. Patient would like rehab stay. Cho[facility]. [facility] can accept. Patient was provided CRM contact, juan board updated. CRM following DC date when [facility] can take per Dr Antonio patient is not ready for DC now drop in HGB, bleeding at stump and still on IV pain meds Rehab needs him on an oral regimen Normal [facility] Comment on above: Result Comment: Elec tronically Signed By: Raina Aguilar\.br\Date and Time Signed: 02/15/24 14:08 EDT Magnesiumon 02-15-2024 Magnesium [Mass/Vol] 1.7 mg/dL Normal 1.3-2.4 [facility] Comment on above: Performed By: #### 2 [id number] #### [facility] [address] [place] [address] PT & PTTon 02-15-2024 aPTT Coag (PPP) [Time] 28.6 second(s) Normal 25.1-36.5 [facility] Comment on above: Result Comment: Para meter [...] the same coagulation reagent and instrumentation as [facility]. Currently there are no coagulation studies available worldwide for children to 14 days, and no normal ranges. Heparin therapeutic range (represented by Anti-Factor Xa activity of 0.2 - 0.4 U/mL) corresponds to PTT of 56.6 - 109.0 sec. Performed By: #### 1 [id number] #### [facility] [address] [place] [address] INR Coag (PPP) [Relative time] 1.09 {INR} Invalid Interpretation Code [facility] Comment on above: Result Comment: INR results are specifically intended to assess patients stabilized on long-term Anticoagulation therapy suggested INR?s ?Less Intensive Anticoagulation? 2.0 ? 3.0 Conventional Range 3.0 ? 4.5 Performed By: #### 1 [id number] #### [facility] [address] [place] [address] PT Coag (PPP) [Time] 12.2 second(s) Normal 9.4-12.5 [facility] Comment on above: Result Comment: 15 d [...] the same coagulation reagent and instrumentation as [facility]. Currently there are no coagulation studies available worldwide for children to 14 days, and no normal ranges. Performed By: #### 1 [id number] #### [facility] [address] [place] [address] Phosphoruson 02-15-2024 Phosphate [Mass/Vol] 3.8 mg/dL Normal 1.9-4.6 [facility] Comment on above: Performed By: #### 2 [id number] #### [facility] [address] [place] [address] eGFRon 02-15-2024 eGFR 40 mL/min/1.73 m2 Low >=59 [facility] Comment on above: Order Comment: Order added by Discern Expert. Performed By: #### 1 [id number] #### [facility] [address] [place] [address] BMPon 02-14-2024 Anion gap [Moles/Vol] 12 mmol/L Normal 6-16 [facility] Comment on above: Performed By: #### 2 [id number] #### [facility] Laboratory [address] [place] [address] Calcium [Mass/Vol] 8.3 mg/dL Low 8.9-11.1 [facility] Comment on above: Performed By: #### 2 [id number] #### [facility] [address] [place] [address] Chloride [Moles/Vol] 96 mmol/L Low 101-111 [facility] Comment on above: Performed By: #### 2 [id number] #### [facility] [address] [place] [address] CO2 [Moles/Vol] 28 mmol/L Normal 21-31 [facility] Comment on above: Performed By: #### 2 [id number] #### [facility] [address] [place] [address] Creatinine [Mass/Vol] 1.8 mg/dL High 0.5-1.3 [facility] Comment on above: Performed By: #### 2 [id number] #### [facility] [address] [place] [address] Glucose [Mass/Vol] 298 mg/dL High 55-199 [facility] Comment on above: Performed By: #### 2 [id number] #### [facility] [address] [place] [address] Potassium [Moles/Vol] 3.7 mmol/L Normal 3.5-5.3 [facility] Comment on above: Performed By: #### 2 [id number] #### [facility] [address] [place] [address] Sodium [Moles/Vol] 132 mmol/L Low 135-145 [facility] Comment on above: Performed By: #### 2 [id number] #### [facility] [address] [place] [address] Urea nitrogen [Mass/Vol] 21 mg/dL Normal 5-21 [facility] Comment on above: Performed By: #### 2 [id number] #### [facility] [address] [place] [address] Urea nitrogen/Creatinine [Mass ratio] 12 No Units Normal 10-20 [facility] Comment on above: Performed By: #### 2 [id number] #### [facility] [address] [place] [address] CBC w/ Auto Diffon 4 Basophils/100 WBC (Bld) 1.9 % Normal 0.0-2.0 [facility] Comment on above: Performed By: #### 2 [id number] #### [facility] [address] [place] [address] Basophils/Leukocytes Auto (Bld) [Pure # fraction] 0.2 E9/L Normal 0.0-0.2 [facility] Comment on above: Performed By: #### 2 [id number] #### [facility] Laboratory [address] [place] [address] Eosinophils (Bld) [#/Vol] 0.3 E9/L Normal 0.0-0.5 [facility] Comment on above: Performed By: #### 2 107514 #### [facility] [address] [place] [address] Eosinophils/100 WBC (Bld) 3.1 % Normal 0.0-8.0 [facility] Comment on above: Performed By: #### 2 275165 #### [facility] [address] [place] [address] Erythrocyte distribution width (RBC) [Ratio] 21.1 % High 10.9-14.2 [facility] Comment on above: Performed By: #### 2 [id number] #### [facility] [address] [place] [address] Hematocrit (Bld) [Volume fraction] 26.4 % Low 37.7-49.0 [facility] Comment on above: Performed By: #### 2 [id number] #### [facility] Laboratory [address] [place] [address] [place] [address] Hemoglobin (Bld) [Mass/Vol] 8.5 g/dL Low 13.5-17.5 [facility] Comment on above: Performed By: #### 2 [id number] #### [facility] [address] [place] [address] Hypochromia Auto Ql (Bld) PRESENT Invalid Interpretation Code [facility] Comment on above: Performed By: #### 2 [id number] #### [facility] [address] [place] [address] Lymphocytes (Bld) [#/Vol] 1.1 E9/L Normal 1.0-4.0 [facility] Comment on above: Performed By: #### 2 [id number] #### [facility] [address] [place] [address] Lymphocytes/100 WBC (Bld) 11.3 % Low 14.0-50.0 [facility] Comment on above: Performed By: #### 2 [id number] #### [facility] [address] [place] [address] MCH (RBC) [Entitic mass] 23.3 pg Low 27.0-34.0 [facility] Comment on above: Performed By: #### 2 [id number] #### [facility] [address] [place] [address] MCHC (RBC) [Mass/Vol] 32.4 g/dL Normal 31.4-36.0 [facility] Comment on above: Performed By: #### 2 [id number] #### [facility] [address] [place] [address] MCV (RBC) [Entitic vol] 71.8 fL Low 80.0-100.0 [facility] Comment on above: Performed By: #### 2 [id number] #### [facility] [address] [place] [address] Microcytes Ql (Bld) PRESENT Invalid Interpretation Code [facility] Comment on above: Performed By: #### 2 [id number] #### [facility] [address] [place] [address] Monocytes (Bld) [#/Vol] 1.0 E9/L Normal 0.2-1.0 [facility] Comment on above: Performed By: #### 2 819607 #### [facility] [address] [place] [address] Neutrophils (Bld) [#/Vol] 7.5 E9/L Normal 2.0-7.5 [facility] Comment on above: Performed By: #### 2 998983 #### [facility] [address] [place] [address] Neutrophils/100 WBC (Bld) 74.1 % Normal 36.0-75.0 [facility] Comment on above: Performed By: #### 2 395551 #### [facility] [address] [place] [address] Platelet mean volume (Bld) [Entitic vol] 8.3 fL Normal 6.4-10.8 [facility] Comment on above: Performed By: #### 2 599450 #### [facility] [address] [place] [address] Platelets (Bld) [#/Vol] 244.0 E9/L Normal 150.0-500. 0 [facility] Comment on above: Performed By: #### 2 435163 #### [facility] [address] [place] [address] RBC (Bld) [#/Vol] 3.7 E12/L Low 4.3-5.9 [facility] Comment on above: Performed By: #### 2 [id number] #### [facility] [address] [place] [address] RBC size Nom (Bld) SEE MORPHOLOGY Invalid Interpretation Code [facility] Comment on above: Performed By: #### 2 157005 #### [facility] [address] [place] [address] WBC corrected for nucl RBC Auto (Bld) [#/Vol] 10.2 E9/L Normal 4.0-11.0 [facility] Comment on above: Performed By: #### 2 [id number] #### [facility] [address] [place] [address] CHEMISTRYOrdered By: SYSTEM SYSTEM on 02-14-2024 Magnesium [Mass/Vol] 1.8 mg/dL Normal 1.3 - 2 .4 mg/dL [facility] Phosphate [Mass/Vol] 3.8 mg/dL Normal 1.9 - 4 .6 mg/dL [facility] COAGULATIONOrdered By: Deborah Parks on 02-14-2024 aPTT Coag (PPP) [Time] 28.8 s Normal 25.1 - 36.5 second(s) [facility] Comment on above: Interpretive Data: Mari yap 15 days - 4 weeks 1 - [...] the same coagulation reagent and instrumentation as [facility]. Currently there are no coagulation studies available worldwide for children to 14 days, and no normal ranges. Heparin therapeutic range (represented by Anti-Factor Xa activity of 0.2 - 0.4 U/mL) corresponds to PTT of 56.6 - 109.0 sec. INR Coag (PPP) [Relative time] 1.04 {INR} Invalid Interpretation Code [facility] Comment on above: Interpretive Data: I NR results are specifically intended to assess patients stabilized on long-term Anticoagulation therapy suggested INR s Less Intensive Anticoagulation 2.0 3.0 Conventional Range 3.0 4.5 PT Coag (PPP) [Time] 11.7 s Normal 9.4 - 1 2.5 second(s) [facility] Comment on above: Interpretive Data: 1 5 days - 4 weeks 1 - 5 months 6 -11 months 1 5 years 6 10 years 11 -17 years Mean: 11.2 (9.5 12.6) Mean: 11.0 (9.7 12.8) Mean: 11.0 (9.8 13.0) Mean: 11.3 (9.9 13.4) Mean: 11.7 (10.0 14.6) Mean: 11.8 (10.0 - 14.1) Pediatric Reference ranges were obtained from a study by brett Padilla al. prepared from 1437 samples obtained at 7 different centers using the same coagulation reagent and instrumentation as [facility]. Currently there are no coagulation studies available worldwide for children to 14 days, and no normal ranges. Capillary Glucose POCon 02-03 Glucose [Mass/Vol] 269 mg/dL High 55-99 [facility] Comment on above: Result Comment: Deon ETIENNE Performed By: #### 2 [id number] #### [facility] [address] [place] [address] Glucose [Mass/Vol] 279 mg/dL High 55-[address] [place] [address] Comment on above: Result Comment: Deon ETIENNE Performed By: #### 2 [id number] #### [facility] [address] [place] [address] Glucose [Mass/Vol] 285 mg/dL High 55-[address] [place] [address] Comment on above: Result Comment: Repe at Test Performed By: #### 2 [id number] #### [facility] [address] [place] [address] Glucose [Mass/Vol] 242 mg/dL High 55-99 [facility] Comment on above: Result Comment: Repe at Test Performed By: #### 2 [id number] #### [facility] [address] [place] [address] Interdisciplinary Note - Jorge e Manageron 02-14-2024 Interdisciplinary Note - Power Plant Superintendent Interdisciplinary Note - Power Plant Superintendent This SW rounded with patient in room 309 this morning. Patient is alert, oriented, and involved in his plan of care. He remains agreeable to going to 1) [facility] - referral pending, 2) [facility] - they have accepted, or 3) [facility] - they have accepted. Acute Rehab is awaiting therapy notes to make their final determination. SW will update patient once determination is received. Patient did request that SW contact his , Yamileth, with an update this afternoon. TC made to Yamileth and she was updated on the above. She voiced that patient has been refusing her recommendation for [facility], however SW let her know that he was agreeable this morning. This SW had discussed the differences between Acute Rehab and SNF to patient. Normal [facility] Comment on above: Result Comment: Elec tronically Signed By: Fely [email or web address].br\Date and Time Signed: 02/14/24 12:15 EDT Interdisciplinary Note - Power Plant Superintendent Interdisciplinary Note - Power Plant Superintendent This SW rounded with patient in room 309 this morning. Patient is alert, oriented, and involved in his plan of care. He remains agreeable to going to 1) [facility] - referral pending, 2) [facility] - they have accepted, or 3) [facility] - they have accepted. Acute Rehab is awaiting therapy notes to make their final determination. SW will update patient once determination is received. Patient did request that SW contact his , Yamileth, with an update this afternoon. Normal [facility] Comment on above: Result Comment: Elec tronically Signed By: Fely Narvaez\.br\Date and Time Signed: 02/14/24 09:38 EDT Interdisciplinary [...] follow daily progressing as pt tolerates. Normal [facility] Magnesiumon 02-14-2024 Magnesium [Mass/Vol] 1.8 mg/dL Normal 1.3-2.4 [facility] Comment on above: Performed By: #### 2 [id number] #### [facility] [address] [place] [address] PT & PTTon 02-14-2024 aPTT Coag (PPP) [Time] 28.8 second(s) Normal 25.1-36.5 [facility] Comment on above: Result Comment: Para meter [...] the same coagulation reagent and instrumentation as [facility]. Currently there are no coagulation studies available worldwide for children to 14 days, and no normal ranges. Heparin therapeutic range (represented by Anti-Factor Xa activity of 0.2 - 0.4 U/mL) corresponds to PTT of 56.6 - 109.0 sec. Performed By: #### 1 [id number] #### [facility] [address] [place] [address] INR Coag (PPP) [Relative time] 1.04 {INR} Invalid Interpretation Code [facility] Comment on above: Result Comment: INR results are specifically intended to assess patients stabilized on long-term Anticoagulation therapy suggested INR?s ?Less Intensive Anticoagulation? 2.0 ? 3.0 Conventional Range 3.0 ? 4.5 Performed By: #### 1 [id number] #### [facility] [address] [place] [address] PT Coag (PPP) [Time] 11.7 second(s) Normal 9.4-12.5 [facility] Comment on above: Result Comment: 15 d [...] the same coagulation reagent and instrumentation as [facility]. Currently there are no coagulation studies available worldwide for children to 14 days, and no normal ranges. Performed By: #### 1 [id number] #### [facility] [address] [place] [address] Phosphoruson 02-14-2024 Phosphate [Mass/Vol] 3.8 mg/dL Normal 1.9-4.6 [facility] Comment on above: Performed By: #### 2 [id number] #### [facility] [address] [place] [address] eGFRon 02-14-2024 eGFR 43 mL/min/1.73 m2 Low >=59 [facility] Comment on above: Order Comment: Order added by Discern Expert. Performed By: #### 1 [id number] #### [facility] [address] [place] [address] BMPon 02-13-2024 Anion gap [Moles/Vol] 11 mmol/L Normal 6-16 [facility] Comment on above: Performed By: #### 2 [id number] #### [facility] [address] [place] [address] Calcium [Mass/Vol] 8.0 mg/dL Low 8.9-11.1 [facility] Comment on above: Performed By: #### 2 [id number] #### [facility] [address] [place] [address] Chloride [Moles/Vol] 99 mmol/L Low 101-111 [facility] Comment on above: Performed By: #### 2 514118 #### [facility] [address] [place] [address] CO2 [Moles/Vol] 26 mmol/L Normal 21-31 [facility] Comment on above: Performed By: #### 2 [id number] #### [facility] [address] [place] [address] Creatinine [Mass/Vol] 1.6 mg/dL High 0.5-1.3 [facility] Comment on above: Performed By: #### 2 576853 #### [facility] [address] [place] [address] Glucose [Mass/Vol] 234 mg/dL High 55-199 [facility] Comment on above: Performed By: #### 2 727917 #### [facility] [address] [place] [address] Potassium [Moles/Vol] 4.0 mmol/L Normal 3.5-5.3 [facility] Comment on above: Performed By: #### 2 664203 #### [facility] [address] [place] [address] Sodium [Moles/Vol] 132 mmol/L Low 135-145 [facility] Comment on above: Performed By: #### 2 [id number] #### [facility] [address] [place] [address] Urea nitrogen [Mass/Vol] 19 mg/dL Normal 5-21 [facility] Comment on above: Performed By: #### 2 [id number] #### [facility] [address] [place] [address] Urea nitrogen/Creatinine [Mass ratio] 12 No Units Normal 10-20 [facility] Comment on above: Performed By: #### 2 [id number] #### [facility] [address] [place] [address] CBC w/Indiceson 02-13-2024 Erythrocyte distribution width (RBC) [Ratio] 18.8 % High 10.9-14.2 [facility] Comment on above: Performed By: #### 2 [id number] #### [facility] [address] [place] [address] Hematocrit (Bld) [Volume fraction] 19.5 % Low 37.7-49.0 [facility] Comment on above: Performed By: #### 2 729194 #### [facility] [address] [place] [address] Hemoglobin (Bld) [Mass/Vol] 6.3 g/dL Abnormal 13.5-17.5 [facility] Comment on above: Result Comment: Crit ical Result Verified by Repeat Analysis Results called to DAVID WELSH by BRAVO and read back on 02/13/2024 05:48:17. Performed By: #### 2 [id number] #### [facility] [address] [place] [address] Hypochromia Auto Ql (Bld) PRESENT Invalid Interpretation Code [facility] Comment on above: Performed By: #### 2 [id number] #### [facility] [address] [place] [address] MCH (RBC) [Entitic mass] 21.6 pg Low 27.0-34.0 [facility] Comment on above: Performed By: #### 2 [id number] #### [facility] [address] [place] [address] MCHC (RBC) [Mass/Vol] 32.3 g/dL Normal 31.4-36.0 [facility] Comment on above: Performed By: #### 2 [id number] #### [facility] [address] [place] [address] MCV (RBC) [Entitic vol] 67.0 fL Low 80.0-100.0 [facility] Comment on above: Performed By: #### 2 [id number] #### [facility] [address] [place] [address] Microcytes Ql (Bld) PRESENT Invalid Interpretation Code [facility] Comment on above: Performed By: #### 2 [id number] #### [facility] [address] [place] [address] Platelet 245.0 E9/L Normal 150.0-500. 0 [facility] Comment on above: Performed By: #### 2 220240 #### [facility] [address] [place] [address] Platelet mean volume (Bld) [Entitic vol] 8.2 fL Normal 6.4-10.8 [facility] Comment on above: Performed By: #### 2 [id number] #### [facility] [address] [place] [address] RBC (Bld) [#/Vol] 2.9 E12/L Low 4.3-5.9 [facility] Comment on above: Performed By: #### 2 [id number] #### [facility] [address] [place] [address] RBC size Nom (Bld) SEE MORPHOLOGY Invalid Interpretation Code [facility] Comment on above: Performed By: #### 2 [id number] #### [facility] [address] [place] [address] WBC corrected for nucl RBC Auto (Bld) [#/Vol] 12.9 E9/L High 4.0-11.0 [facility] Comment on above: Performed By: #### 2 [id number] #### [facility] [address] [place] [address] CHEMISTRYOrdered By: Simon Helm on 02-13-2024 HbA1c (Bld) [Mass fraction] 10.3 % High <=5.9% [facility] ChemAutoSS CHEMISTRYOrdered By: SYSTEM SYSTEM on 02-13-2024 Magnesium [Mass/Vol] 1.3 mg/dL Normal 1.3 - 2 .4 mg/dL Rem[facility] Chem Phosphate [Mass/Vol] 2.5 mg/dL Normal 1.9 - 4 .6 mg/dL [facility] COAGULATIONOrdered By: Pietro Garibay on 02-13-2024 aPTT Coag (PPP) [Time] 27.5 s Normal 25.1 - 36.5 second(s) [facility] Comment on above: Interpretive Data: P arameter 15 days - 4 weeks 1 - 5 months 6 - 11 months 1 - 5 years 6 - 10 years 11 - 17 years PTT Mean: 35.4 (27.6-45.6) Mean: 33.5 (24.8-40.7) Mean: 32.4 (25.1-40.7) Mean: 31.6 (24.0-39.2) Mean: 31.6 (26.9-38.7) Mean: 31.0 (24.6-38.4) Pediatric Reference ranges were obtained from a study by brett Padilla alMary prepared from 1437 samples obtained at 7 different centers using the same coagulation reagent and instrumentation as [facility]. Currently there are no coagulation studies available worldwide for children to 14 days, and no normal ranges. Heparin therapeutic range (represented by Anti-Factor Xa activity of 0.2 - 0.4 U/mL) corresponds to PTT of 56.6 - 109.0 sec. INR Coag (PPP) [Relative time] 1.11 {INR} Invalid Interpretation Code [facility] Comment on above: Interpretive Data: I NR results are specifically intended to assess patients stabilized on long-term Anticoagulation therapy suggested INR s Less Intensive Anticoagulation 2.0 3.0 Conventional Range 3.0 4.5 PT Coag (PPP) [Time] 12.5 s Normal 9.4 - 1 2.5 second(s) [facility] Comment on above: Interpretive Data: 1 5 days - 4 weeks 1 - 5 months 6 -11 months 1 5 years 6 10 years 11 -17 years Mean: 11.2 (9.5 12.6) Mean: 11.0 (9.7 12.8) Mean: 11.0 (9.8 13.0) Mean: 11.3 (9.9 13.4) Mean: 11.7 (10.0 14.6) Mean: 11.8 (10.0 - 14.1) Pediatric Reference ranges were obtained from a study by Colby Umana et al. prepared from 1437 samples obtained at 7 different centers using the same coagulation reagent and instrumentation as [facility]. Currently there are no coagulation studies available worldwide for children to 14 days, and no normal ranges. Capillary Glucose [facility] 02-03 Glucose [Mass/Vol] 332 mg/dL High 55-99 [facility] Comment on above: Result Comment: Deon hathaway RN/ Performed By: #### 2 [id number] #### [facility] [address] [place] [address] Glucose [Mass/Vol] 194 mg/dL High 55-99 [facility] Comment on above: Result Comment: Deon hathaway RN/ Performed By: #### 2 [id number] #### [facility] [address] [facility] [place] [address] Glucose [Mass/Vol] 195 mg/dL High 55-99 [facility] Comment on above: Result Comment: Deon ETIENNE Performed By: #### 2 [id number] #### [facility] [address] [facility] [place] [address] Glucose [Mass/Vol] 194 mg/dL High 55-99 [facility] Comment on above: Result Comment: Deon ETIENNE Performed By: #### 2 [id number] #### [facility] [address] [facility] [place] [address] Glucose [Mass/Vol] 324 mg/dL High 55-99 [facility] Comment on above: Result Comment: Deon ETIENNE Performed By: #### 2 [id number] #### [facility] [address] [facility] [place] [address] Coding Queryon 02-13-2024 Coding Query Coding Query From: Eliz Diaz RN To: Elan Antonio MD; Sent: 02/13/2024 10:18:56 EDT ! Subject: Coding Query Due Date/Time: 02/14/2024 10:18:00 EDT Caller Name: MYRA PICKARD SR; Caller Number: H Documentation in [...] particular answer is desired or expected. Thank you!eliz [phone] Normal [facility] Hct & Hgbon 02-13-2024 Hematocrit (Bld) [Volume fraction] 24.4 % Low 37.7-49.0 [facility] Comment on above: Performed By: #### 1 [id number] #### [facility] [address] [place] [address] Hemoglobin (Bld) [Mass/Vol] 7.9 g/dL Low 13.5-17.5 [facility] Comment on above: Performed By: #### 1 [id number] #### [facility] [address] [place] [address] [id number] 02-13-2024 HbA1c (Bld) [Mass fraction] 10.3 % High <=5.9 [facility] Comment on above: Performed By: #### 7 [id number] #### [facility] [address] [place] [address] Interdisciplinary Note - Jorge e Manageron 02-13-2024 Interdisciplinary Note - Power Plant Superintendent Interdisciplinary Note - Power Plant Superintendent CRM to room 309 Patient is awake, alert and oriented. Patient is from home with his spouse. Patient verified PCP, DME and insurance. Patient is here as inpatient. Patient had Right BKA. Patient is assigned to Dr Antonio. Vascular Dr Montes did surgery. Patient is getting transfusion PRBC. Patient will need PT/OT added when appropriate. Patient would like SNF at [place]. Patient is unsure of choices yet. His spouse was doing some research. CRM did try to call Spouse at [phone] and left . CRM did leave printed SNF list in room. Patient was provided CRM contact, juan board updated. CRM following DC date TBD. CRM will get updates at 10 AM from hospitalist called CRM [facility], [facility] and [facility] for rehab Normal [facility] Comment on above: Result Comment: Elec tronically Signed By: Raina Aguilar\.br\Date and Time Signed: 02/13/24 13:10 EDT Interdisciplinary Note - Power Plant Superintendent Interdisciplinary Note - Power Plant Superintendent CRM to room 309 Patient is awake, alert and oriented. Patient is from home with his spouse. Patient verified PCP, DME and insurance. Patient is here as inpatient. Patient had Right BKA. Patient is assigned to Dr Antonio. Vascular Dr Montes did surgery. Patient is getting transfusion PRBC. Patient will need PT/OT added when appropriate. Patient would like SNF at [place]. Patient is unsure of choices yet. His spouse was doing some research. CRM did try to call Spouse at [phone] and left VM. CRM did leave printed SNF list in room. Patient was provided CRM contact, white board updated. CRM following DC date TBD. CRM will get updates at 10 AM from hospitalist [facility] Comment on above: Result Comment: [...] eval when Pt is medically appropriate. Normal [facility] Interdisciplinary Note - PTo n 02-13-2024 Interdisciplinary Note - PT Interdisciplinary Note - PT Order received and chart reviewed. Pt with critical Hgb levels at this time. Will hold and attempt tomorrow Normal [facility] Magnesiumon 02-13-2024 Magnesium [Mass/Vol] 1.3 mg/dL Normal 1.3-2.4 [facility] Comment on above: Performed By: #### 2 [id number] #### [facility] [address] [place] [address] Main OR Intraoperative Recor don 02-13-2024 Main OR Intraoperative Record Main OR Intraoperative Record IntraOp Document Type FT Summary Primary Physician: Mike Montes MD Finalized Date/Time: 02/13/24 13:38:10 Pt. Name: MYRA PICKARD SR./Sex: 1965 Male Med Rec #: [id number] Physician: Mike Montes MD Financial #: [id number] Pt. Type: I Room/Bed: N309/ Admit/Disch: 02/12/24 11:13:26 - Institution: Case Times FT Entry 1 Patient Times In Room 02/12/24 13:26:00 Out Room 02/12/24 14:45:00 Procedure Times Start 02/12/24 13:54:00 Stop 02/12/24 14:36:00 Anesthesia Times Start 02/12/24 13:26:00 Stop 02/12/24 14:45:00 Last Modified By: Sara STERN, Tyree Hopkins 02/12/24 14:44:51 General Comments: 02/13/24 Chart opened for charge review per Neom Perez RN. [place] Case Attendance FT Entry 1 Entry 2 Entry 3 Case Attendee Lamonte MOON, Alexander Montes MD, Mike Ruiz RN, Tyree Hopkins Role Performed Anesthesiologist Surgeon - Primary Powdered Sugar Supervisor - Primary Forklift Picker Time In 02/12/24 13:26:00 02/12/24 13:45:00 02/12/24 13:26:00 Time Out 02/12/24 14:44:00 02/12/24 14:31:00 02/12/24 14:44:00 Procedure KNEE AMPUTATION KNEE AMPUTATION KNEE AMPUTATION BELOW(Right) BELOW(Right) BELOW(Right) Comments , anesthesia supervisor canvas products Last Modified By: Sara STERN, Tyree Ruiz RN, Tyree Ruiz RN, Tyree Hopkins 02/12/24 14:44:09 02/12/24 14:44:09 02/12/24 14:44:09 Entry 4 Entry 5 Entry 6 Case Attendee Robinson STERN, Jenise Jaquez CST, Radha Corona Role Performed Powdered Sugar Supervisor - Primary HOOP CUTTER/SA Scrub - Primary Time In 02/12/24 13:26:00 02/12/24 13:26:00 02/12/24 13:26:00 Time Out 02/12/24 14:44:00 02/12/24 14:44:00 02/12/24 14:44:00 Procedure KNEE AMPUTATION KNEE AMPUTATION KNEE AMPUTATION BELOW(Right) BELOW(Right) BELOW(Right) Comments in orientation Last Modified By: Sara STERN, Tyree L Sara Tyree STERN RN, Andrea L 02/12/24 14:44:09 02/12/24 14:44:09 02/12/24 14:44:09 General Comments: Lima Puckett- exceptional student education aide, observing surgical case. Perioperative Protocols FT Pre-Care [...] Time Out Alexander Aburto CRNA, Given Participants Mike Montes MD, Sara STERN, Robinson Gonzalez RN, Leonid Saenz CST, Gina Car Madison [...] KNEE AMPUTATION Primary Procedure Yes Primary Surgeon Mike Montes MD Start 02/12/24 13:54:00 Stop 02/12/24 [...] I70.261-Atherosclerosis Postop Same As Preop Yes of [place] arteries of extremities with gangrene, right leg. Postop Diagnosis I70.261-Atherosclerosis Outcomes Met? Yes of [place] arteries of extremities with gangrene, right leg. [...] and tissue Entry 1 Skin Integrity Intact, Madelia, Warm, & Skin Abnormality No Dry Outcomes Met? Yes Last Modified By: Tyree Ruiz RN 02/12/24 12:50:23 Post-Care Text: The patient is free from signs an (more content not included)... Normal [facility] PT & PTTon 02-13-2024 aPTT Coag (PPP) [Time] 27.5 second(s) Normal 25.1-36.5 [facility] Comment on above: Result Comment: Para meter [...] the same coagulation reagent and instrumentation as [facility]. Currently there are no coagulation studies available worldwide for children to 14 days, and no normal ranges. Heparin therapeutic range (represented by Anti-Factor Xa activity of 0.2 - 0.4 U/mL) corresponds to PTT of 56.6 - 109.0 sec. Performed By: #### 1 [id number] #### [facility] [address] [place] [address] INR Coag (PPP) [Relative time] 1.11 {INR} Invalid Interpretation Code [facility] Comment on above: Result Comment: INR results are specifically intended to assess patients stabilized on long-term Anticoagulation therapy suggested INR?s ?Less Intensive Anticoagulation? 2.0 ? 3.0 Conventional Range 3.0 ? 4.5 Performed By: #### 1 [id number] #### [facility] [address] [place] [address] PT Coag (PPP) [Time] 12.5 second(s) Normal 9.4-12.5 [facility] Comment on above: Result Comment: 15 d [...] the same coagulation reagent and instrumentation as [facility]. Currently there are no coagulation studies available worldwide for children to 14 days, and no normal ranges. Performed By: #### 1 [id number] #### [facility] [address] [place] [address] Phosphoruson 02-13-2024 Phosphate [Mass/Vol] 2.5 mg/dL Normal 1.9-4.6 [facility] Comment on above: Performed By: #### 2 [id number] #### [facility] [address] [place] [address] RCOon 02-13-2024 # of Units 2 Invalid Interpretation Code [facility] Comment on above: Result Comment: 02/12 6:32 [id number] Blood product ready and called to David Hoskins at 02/13/2024 06:32:44 EDT by [email or web address]. Performed By: #### 1 [id number] #### [facility] [address] [place] [address] Date Required [id number] Invalid Interpretation Code [facility] Comment on above: Performed By: #### 1 [id number] #### [facility] [address] [place] [address] Order to Transfuse Yes Normal [facility] Comment on above: Performed By: #### 1 [id number] #### [facility] [address] [place] [address] Product Type None Required Invalid Interpretation Code [facility] Comment on above: Performed By: #### 1 [id number] #### [facility] [address] [place] [address] eGFRon 02-13-2024 eGFR 49 mL/min/1.73 m2 Low >=59 [facility] Comment on above: Order Comment: Order added by Discern Expert. Performed By: #### 1 [id number] #### [facility] [address] [place] [address] ABO/Rhon 02-12-2024 ABO/Rh Positive Invalid Interpretation Code [facility] Comment on above: Performed By: #### 2 [id number] #### [facility] [address] [place] [address] ABO/Rh History Checkon 02-11 ABO/Rh History Check Type verified by second s Normal [facility] Comment on above: Performed By: #### 1 [id number] #### [facility] [address] [place] [address] ABO/Rh Retypeon 02-12-2024 ABO/Rh Retype Interp Positive Invalid Interpretation Code [facility] Comment on above: Performed By: #### 1 [id number] #### [facility] [address] [place] [address] ABSCon 02-12-2024 ABSC Gel Interp Negative Normal [facility] Comment on above: Performed By: #### 1 [id number] #### [facility] [address] [place] [address] BLOOD BANKOrdered By: Rizwana Helm on 02-12-2024 ABO/Rh Retype Interp Positive Invalid Interpretation Code [facility] BB Subsection BLOOD BANKOrdered By: Cassie Gomez on 02-12-2024 ABO/Rh Interp Positive Invalid Interpretation Code [facility] BB Subsection ABSC Gel Interp Negative (02/12/24 12:00 PM) Normal [facility] BB Subsection BMPon 02-12-2024 Anion gap [Moles/Vol] 12 mmol/L Normal 6-16 [facility] Comment on above: Performed By: #### 2 [id number] #### [facility] [address] [place] [address] Calcium [Mass/Vol] 8.1 mg/dL Low 8.9-11.1 [facility] Comment on above: Performed By: #### 2 [id number] #### [facility] [address] [place] [address] Chloride [Moles/Vol] 102 mmol/L Normal 101-111 [facility] Comment on above: Performed By: #### 2 [id number] #### [facility] [address] [place] [address] CO2 [Moles/Vol] 26 mmol/L Normal 21-31 [facility] Comment on above: Performed By: #### 2 [id number] #### [facility] [address] [place] [address] Creatinine [Mass/Vol] 1.5 mg/dL High 0.5-1.3 [facility] Comment on above: Performed By: #### 2 [id number] #### [facility] [address] [place] [address] Glucose [Mass/Vol] 274 mg/dL High 55-199 [facility] Comment on above: Performed By: #### 2 [id number] #### [facility] [address] [place] [address] Potassium [Moles/Vol] 4.5 mmol/L Normal 3.5-5.3 [facility] Comment on above: Performed By: #### 2 [id number] #### [facility] [address] [place] [address] Sodium [Moles/Vol] 135 mmol/L Normal 135-145 [facility] Comment on above: Performed By: #### 2 [id number] #### [facility] [address] [place] [address] Urea nitrogen [Mass/Vol] 16 mg/dL Normal 5-21 [facility] Comment on above: Performed By: #### 2 [id number] #### [facility] [address] [place] [address] Urea nitrogen/Creatinine [Mass ratio] 11 No Units Normal 10-20 [facility] Comment on above: Performed By: #### 2 [id number] #### [facility] [address] [place] [address] Blood Bank ID#on 02-12-2024 BBID# [id number] Invalid Interpretation Code [facility] Comment on above: Performed By: #### 1 [id number] #### [facility] [address] [place] [address] CBC w/Indiceson 02-12-2024 Erythrocyte distribution width (RBC) [Ratio] 18.5 % High 10.9-14.2 [facility] Comment on above: Performed By: #### 2 [id number] #### [facility] [address] [place] [address] Hematocrit (Bld) [Volume fraction] 23.5 % Low 37.7-49.0 [facility] Comment on above: Performed By: #### 2 [id number] #### [facility] [address] [place] [address] Hemoglobin (Bld) [Mass/Vol] 7.2 g/dL Low 13.5-17.5 [facility] Comment on above: Performed By: #### 2 [id number] #### [facility] [address] [place] [address] Hypochromia Auto Ql (Bld) PRESENT Invalid Interpretation Code [facility] Comment on above: Performed By: #### 2 [id number] #### [facility] [address] [place] [address] MCH (RBC) [Entitic mass] 21.1 pg Low 27.0-34.0 [facility] Comment on above: Performed By: #### 2 [id number] #### [facility] [address] [place] [address] MCHC (RBC) [Mass/Vol] 30.7 g/dL Low 31.4-36.0 [facility] Comment on above: Performed By: #### 2 [id number] #### [facility] [address] [place] [address] MCV (RBC) [Entitic vol] 68.8 fL Low 80.0-100.0 [facility] Comment on above: Performed By: #### 2 [id number] #### [facility] [address] [place] [address] Microcytes Ql (Bld) PRESENT Invalid Interpretation Code [facility] Comment on above: Performed By: #### 2 [id number] #### [facility] [address] [place] [address] Platelet mean volume (Bld) [Entitic vol] 8.0 fL Normal 6.4-10.8 [facility] Comment on above: Performed By: #### 2 [id number] #### [facility] [address] [place] [address] Platelets (Bld) [#/Vol] 244.0 E9/L Normal 150.0-500. 0 [facility] Comment on above: Performed By: #### 2 [id number] #### [facility] [address] [place] [address] Polychromasia LM Ql (Bld) PRESENT Invalid Interpretation Code [facility] Comment on above: Performed By: #### 2 [id number] #### [facility] [address] [place] [address] RBC (Bld) [#/Vol] 3.4 E12/L Low 4.3-5.9 [facility] Comment on above: Performed By: #### 2 [id number] #### [facility] [address] [place] [address] [place] [address] RBC size Nom (Bld) NORMAL Invalid Interpretation Code [facility] Comment on above: Performed By: #### 2 [id number] #### [facility] [address] [place] [address] Target cells LM Ql (Bld) PRESENT Invalid Interpretation Code [facility] Comment on above: Performed By: #### 2 [id number] #### [facility] [address] [place] [address] WBC corrected for nucl RBC Auto (Bld) [#/Vol] 14.7 E9/L High 4.0-11.0 [facility] Comment on above: Performed By: #### 2 [id number] #### [facility] [address] [place] [address] CHEMISTRYOrdered By: SYSTEM SYSTEM on 02-12-2024 Glucose [Mass/Vol] 580 mg/dL Invalid Interpretation Code 55 - 199 mg/dL [facility] Comment on above: Result Comment: Crit ical Result Verified by Repeat Analysis Critical Result [id number] Called to and read back by: DAVID WELSH at: 02/12/2024 21:01:57 by:BAB Capillary Glucose POCon Glucose [Mass/Vol] 441 mg/dL High 55-99 [facility] Comment on above: Result Comment: Deon ETIENNE Performed By: #### 2 [id number] #### [facility] [address] [place] [address] Glucose [Mass/Vol] mg/dL Abnormal 55-99 [facility] Comment on above: Result Comment: Deon ETIENNE Performed By: #### 2 [id number] #### [facility] [address] [place] [address] Glucose [Mass/Vol] mg/dL Abnormal 55-99 [facility] Comment on above: Result Comment: Deon ETIENNE Performed By: #### 2 [id number] #### [facility] [address] [place] [address] Glucose [Mass/Vol] 259 mg/dL High 55-99 [facility] Comment on above: Result Comment: Repe at Test Performed By: #### 2 [id number] #### [facility] [address] [place] [address] Glucose [Mass/Vol] 205 mg/dL High 55-99 [facility] Comment on above: Result Comment: Deon hathaway RN/ Performed By: #### 2 [id number] #### [facility] [address] [place] [address] Glucoseon 02-12-2024 Glucose [Mass/Vol] 580 mg/dL Abnormal 55-199 [facility] Comment on above: Result Comment: Crit ical Result Verified by Repeat Analysis Critical Result [id number] Called to and read back by: DAVID WELSH at: 02/12/2024 21:01:57 by:BRAVO Performed By: #### 2 [id number] #### [facility] [address] [place] [address] HEMATOLOGYOrdered By: SYSTEM SYSTEM on 02-12-2024 Polychromasia LM Ql (Bld) PRESENT *NA* (02/12/24 4:47 PM) Invalid Interpretation Code Remisol Heme Target cells LM Ql (Bld) PRESENT *NA* (02/12/24 4:47 PM) Invalid Interpretation Code Remisol Heme Hct & Hgbon 02-12-2024 Hematocrit (Bld) [Volume fraction] 22.7 % Low 37.7-49.0 [facility] Comment on above: Performed By: #### 1 [id number] #### [facility] [address] [place] [address] Hemoglobin (Bld) [Mass/Vol] 7.3 g/dL Low 13.5-17.5 [facility] Comment on above: Performed By: #### 1 [id number] #### [facility] [address] [place] [address] Main OR Intraoperative Recor don 02-12-2024 Main OR Intraoperative Record Main OR Intraoperative Record IntraOp Document Type FT Summary Primary Physician: Simon HERRERA, Mike Weathers Finalized Date/Time: 02/12/24 14:48:28 Pt. Name: MATTEO CHRISTIAN, MYRA Daniel D.O.B./Sex: 1965 Male Med Rec #: [id number] Physician: Mike Montes MD Financial #: [id number] Pt. Type: A Room/Bed: [place] [address] Admit/Disch: 02/12/24 11:13:26 - Institution: Case Times FT Entry 1 Patient Times In Room 02/12/24 13:26:00 Out Room 02/12/24 14:45:00 Procedure Times Start 02/12/24 13:54:00 Stop 02/12/24 14:36:00 Anesthesia Times Start 02/12/24 13:26:00 Stop 02/12/24 14:45:00 Last Modified By: Sara STERN, Tyree Hopkins 02/12/24 14:44:51 Case Attendance FT Entry 1 Entry 2 Entry 3 Case Attendee Lamonte MOON, Alexander Montes MD, Mike Ruiz RN, Tyree Hopkins Role Performed Anesthesiologist Surgeon - Primary Powdered Sugar Supervisor - Primary Forklift Picker Time In 02/12/24 13:26:00 02/12/24 13:45:00 02/12/24 13:26:00 Time Out 02/12/24 14:44:00 02/12/24 14:31:00 02/12/24 14:44:00 Procedure KNEE AMPUTATION KNEE AMPUTATION KNEE AMPUTATION BELOW(Right) BELOW(Right) BELOW(Right) Comments , anesthesia supervisor canvas products Last Modified By: Sara STERN, Tyree Ruiz RN, Tyree Mancera RN 02/12/24 14:44:09 02/12/24 14:44:09 02/12/24 14:44:09 Entry 4 Entry 5 Entry 6 Case Attendee Robinson STERN, Jenise Jaquez CST, Radha Corona Role Performed Powdered Sugar Supervisor - Primary HOOP CUTTER/SA Scrub - Primary Time In 02/12/24 13:26:00 02/12/24 13:26:00 02/12/24 13:26:00 Time Out 02/12/24 14:44:00 02/12/24 14:44:00 02/12/24 14:44:00 Procedure KNEE AMPUTATION KNEE AMPUTATION KNEE AMPUTATION BELOW(Right) BELOW(Right) BELOW(Right) Comments in orientation Last Modified By: Tyree Ruiz RN, RN, Tyree Mancera RN 02/12/24 14:44:09 02/12/24 14:44:09 02/12/24 14:44:09 General Comments: Lima Puckett- exceptional student education aide, observing surgical case. Perioperative Protocols FT Pre-Care [...] Time Out Alexander Aburto CRNA, Given Participants Mike Montes MD, Sara STERN, Robinson Gonzalez RN, Leonid Saenz CST, Gina Car Madison [...] KNEE AMPUTATION Primary Procedure Yes Primary Surgeon Mike Montes MD Start 02/12/24 13:54:00 Stop 02/12/24 [...] I70.261-Atherosclerosis Postop Same As Preop Yes of [place] arteries of extremities with gangrene, right leg. Postop Diagnosis I70.261-Atherosclerosis Outcomes Met? Yes of [place] arteries of extremities with gangrene, right leg. [...] and tissue Entry 1 Skin Integrity Intact, [place], Warm, & Skin Abnormality No Dry Outcomes Met? Yes Last Modified By: Tyree Ruiz RN 02/12/24 12:50:23 Post-Care Text: The patient is free from signs and symptoms of injury caused by extraneous objects Patient Positioning FT Pre-Ca (more content not included)... Normal [facility] Main OR PACU I Recordon Main OR PACU I Record Main OR PACU I Rec ord PACU Phase I Document Type FT Summary Primary Physician: Mike Montes MD Finalized Date/Time: 02/12/24 17:14:55 Pt. Name: MYRA PICKARD SR/Sex: 1965 Male Med Rec #: [id number] Physician: Mike Montes MD Financial #: [id number] Pt. Type: A Room/Bed: N309/01 Admit/Disch: 02/12/24 11:13:26 - Institution: Case Times [...] Signed By: Lima Bolaños RN 02/12/24 17:14 Normal [facility] Main OR Preoperative Recordo n 02-12-2024 Main OR Preoperative Record Main OR Preoperative Record PreOp Document Type FT Summary Primary Physician: Mike Montes MD Finalized Date/Time: 02/12/24 13:26:50 Pt. Name: MYRA PICKARD SR/Sex: 1965 Male Med Rec #: [id number] Physician: Mike Montes MD Financial #: [id number] Pt. Type: A Room/Bed: [place] [address] Admit/Disch: 02/12/24 11:13:26 - Institution: Case Times [...] By: Tyree Ruiz RN 02/12/24 13:26 Normal [facility] PT & PTTon 02-12-2024 aPTT Coag (PPP) [Time] 28.0 second(s) Normal 25.1-36.5 [facility] Comment on above: Result Comment: Para meter [...] the same coagulation reagent and instrumentation as [facility]. Currently there are no coagulation studies available worldwide for children to 14 days, and no normal ranges. Heparin therapeutic range (represented by Anti-Factor Xa activity of 0.2 - 0.4 U/mL) corresponds to PTT of 56.6 - 109.0 sec. Performed By: #### 1 [id number] #### [facility] [address] [place] [address] INR Coag (PPP) [Relative time] 1.12 {INR} Invalid Interpretation Code [facility] Comment on above: Result Comment: INR results are specifically intended to assess patients stabilized on long-term Anticoagulation therapy suggested INR?s ?Less Intensive Anticoagulation? 2.0 ? 3.0 Conventional Range 3.0 ? 4.5 Performed By: #### 1 [id number] #### [facility] [address] [place] [address] PT Coag (PPP) [Time] 12.6 second(s) High 9.4-12.5 [facility] Comment on above: Result Comment: 15 d [...] the same coagulation reagent and instrumentation as [facility]. Currently there are no coagulation studies available worldwide for children to 14 days, and no normal ranges. Performed By: #### 1 [id number] #### [facility] [address] [place] [address] eGFRon 02-12-2024 eGFR 53 mL/min/1.73 m2 Low >=59 [facility] Comment on above: Order Comment: Order added by Discern Expert. Performed By: #### 1 [id number] #### [facility] [address] [place] [address] Activated partial thrombopla stin time (aPTT) in platelet poor plasma by coagulation aon 02-08-2024 aPTT Coag (PPP) [Time] 25.6 s 22.3-36.2 [facility] aPTT Coag (PPP) [Time] Activated partial thromboplastin time (aPTT) in platelet poor plasma by coagulation a 22.3-36.[address] [facility] Basophils Auto (Bld) [#/Vol] on 02-08-2024 Basophils (Bld) [#/Vol] 0.1 10 3/uL 0.0-0.[address] [facility] Basophils (Bld) [#/Vol] Automated basophil count 0.0-0.1 [facility] Basophils/100 WBC Auto (Bld) on 02-08-2024 Basophils/100 WBC (Bld) 0.7 % 0.2-2.[address] [facility] Basophils/100 WBC (Bld) Automated basophil % 0.2-2.[address] [facility] Eosinophils/100 WBC Auto (Bl d)on 02-08-2024 Eosinophils/100 WBC (Bld) 3.1 % 0.9-7.[address] [facility] Eosinophils/100 WBC (Bld) Automated eosinophil % 0.9-7.[address] [facility] Erythrocyte distribution wid th Auto (RBC) [Ratio]on 02-08-2024 Erythrocyte distribution width (RBC) [Ratio] 16.3 % High 11.0-15.[address] [facility] Erythrocyte distribution width (RBC) [Ratio] Erythrocyte distribution width [Ratio] by Automated count High 11.0-15.[address] [facility] Estimated glomerular filtrat ion rate (GFR) non- Americanon 02-08-2024 GFR/1.73 sq M.predicted among non-blacks MDRD (S/P/Bld) [Vol rate/Area] 38 mL/min/{1.73_m2} Low >=[address] [facility] GFR/1.73 sq M.predicted among non-blacks MDRD (S/P/Bld) [Vol rate/Area] Estimated glomerular filtration rate (GFR) non- Low >=[address] [facility] Hematocrit Auto (Bld) [Volum e fraction]on 02-08-2024 Hematocrit (Bld) [Volume fraction] 29.8 % Low 42.0-54.[address] [facility] Hematocrit (Bld) [Volume fraction] Hematocrit [Volume Fraction] of Blood by Automated count Low 42.0-54.[address] [facility] Hemoglobin [Mass/volume] in Bloodon 02-08-2024 Hemoglobin (Bld) [Mass/Vol] 9.1 g/dL Low 14.0-18.[address] [facility] Hemoglobin (Bld) [Mass/Vol] Hemoglobin [Mass/volume] in Blood Low 14.0-18.[address] [facility] INR in Platelet poor plasma by Coagulation assayon 02-08-2024 INR Coag (PPP) [Relative time] 1.02 {INR} [facility] Comment on above: DESIRED INR:2.0-3.0 CONDITIONS NOT LISTED BELOW2.5-3.5 FOR PROSTHETIC HEART VALVE REPLACEMENT2.5-3.5 RECURRENT THROMBOSIS INR Coag (PPP) [Relative time] INR in Platelet poor plasma by Coagulation assay [facility] Comment on above: DESIRED INR:2.0-3.0 CONDITIONS NOT LISTED BELOW2.5-3.5 FOR PROSTHETIC HEART VALVE REPLACEMENT2.5-3.5 RECURRENT THROMBOSIS Laboratory - Chemistry and C hemistry - challengeon 02-08-2024 Calcium [Mass/Vol] 9.4 mg/dL 8.5-10.1 [facility] Chloride [Moles/Vol] 99 mmol/L 98-107 [facility] CO2 [Moles/Vol] 28.9 mmol/L 21.0-32.0 [facility] Creatinine [Mass/Vol] 1.84 mg/dL High 0.70-1.30 [facility] GFR/1.73 sq M.predicted MDRD (S/P/Bld) [Vol rate/Area] 46 mL/min/{1.73_m2} Low >=[address] [facility] Glucose [Mass/Vol] 184 mg/dL High 74-106 [facility] Potassium [Moles/Vol] 4.0 mmol/L 3.5-5.1 [facility] Sodium [Moles/Vol] 138 mmol/L 136-145 [facility] Urea nitrogen [Mass/Vol] 21.0 mg/dL High 7.0-18.[address] [facility] Urea nitrogen/Creatinine [Mass ratio] 11.4 mg/mg [facility] Laboratory - Hematology and Cell countson 02-08-2024 Immature granulocytes/100 WBC (Bld) 0.4 % 0.0-0.[address] [facility] Leukocytes [#/volume] correc jorge for nucleated erythrocytes in Blood by Automated counon 02-08-2024 WBC corrected for nucl RBC Auto (Bld) [#/Vol] 10.1 10 3/uL 4.0-11.[address] [facility] WBC corrected for nucl RBC Auto (Bld) [#/Vol] Leukocytes [#/volume] corrected for nucleated erythrocytes in Blood by Automated coun 4.0-11.[address] [facility] Lymphocytes Auto (Bld) [#/Vo l]on 02-08-2024 Lymphocytes (Bld) [#/Vol] 1.6 10 3/uL 1.2-3.[address] [facility] Lymphocytes (Bld) [#/Vol] Lymphocytes [#/volume] in Blood by Automated count 1.2-3.[address] [facility] Lymphocytes/100 WBC Auto (Bl d)on 02-08-2024 Lymphocytes/100 WBC (Bld) 15.6 % Low 20.5-60.[address] [facility] Lymphocytes/100 WBC (Bld) Lymphocytes/100 leukocytes in Blood by Automated count Low 20.5-60.[address] [facility] MCH Auto (RBC) [Entitic mass ]on 02-08-2024 MCH (RBC) [Entitic mass] 21.9 pg Low 25.9-34.[address] [facility] MCH (RBC) [Entitic mass] MCH [Entitic mass] by Automated count Low 25.9-34.[address] [facility] MCHC Auto (RBC) [Mass/Vol]on 02-08-2024 MCHC (RBC) [Mass/Vol] 30.5 g/dL 29.9-35.2 [facility] MCHC (RBC) [Mass/Vol] MCHC [Mass/volume] by Automated count 29.9-35.[address] [facility] MCV Auto (RBC) [Entitic vol] on 02-08-2024 MCV (RBC) [Entitic vol] 71.8 fL Low 80.0-94.[address] [facility] MCV (RBC) [Entitic vol] MCV [Entitic volume] by Automated count Low 80.0-94.[address] [facility] Monocytes Auto (Bld) [#/Vol] on 02-08-2024 Monocytes (Bld) [#/Vol] 0.8 10 3/uL 0.3-0.[address] [facility] Monocytes (Bld) [#/Vol] Automated blood monocyte count 0.3-0.[address] [facility] Monocytes/100 WBC Auto (Bld) on 02-08-2024 Monocytes/100 WBC (Bld) 7.5 % 1.7-12.[address] [facility] Monocytes/100 WBC (Bld) Automated monocyte % 1.7-12.[address] [facility] Neutrophils Auto (Bld) [#/Vo l]on 02-08-2024 Neutrophils (Bld) [#/Vol] 7.4 10 3/uL High 1.4-6.[address] [facility] Neutrophils (Bld) [#/Vol] Neutrophils [#/volume] in Blood by Automated count High 1.4-6.[address] [facility] Neutrophils/100 WBC Auto (Bl d)on 02-08-2024 Neutrophils/100 WBC (Bld) 72.7 % 43.0-75.[address] [facility] Neutrophils/100 WBC (Bld) Automated neutrophil % 43.0-75.[address] [facility] No Panel Informationon 02-07 Eosinophils # (Auto) 0.3 10 3/uL 0.0-0.7 [facility] Immature Granulocyte # (Auto) 0.04 10 3/uL High 0.00-0.[address] [facility] 11.[address] [facility] 0.3 10 3/uL 0.0-0.[address] [facility] 21.0 mg/dL High 7.0-18.[address] [facility] 9.4 mg/dL 8.5-10.[address] [facility] 99 mmol/L 98-[address] [facility] 28.9 mmol/L 21.0-32.[address] [facility] 0.04 10 3/uL High 0.00-0.[address] [facility] 1.84 mg/dL High 0.70-1.[address] [facility] 0.4 % 0.0-0.[address] [facility] 46 Low >=[address] [facility] 184 mg/dL High 74-[address] [facility] 4.0 mmol/L 3.5-5.[address] [facility] 138 mmol/L 136-[address] [facility] Platelet mean volume Auto (B ld) [Entitic vol]on 02-08-2024 Platelet mean volume (Bld) [Entitic vol] 10.7 fL 9.5-13.[address] [facility] Platelet mean volume (Bld) [Entitic vol] Platelet mean volume [Entitic volume] in Blood by Automated count .5-.[address] [facility] Platelets Auto (Bld) [#/Vol] on 02-08-2024 Platelets (Bld) [#/Vol] 322 10 3/uL 150-[address] [facility] Platelets (Bld) [#/Vol] Platelets [#/volume] in Blood by Automated count 150-[address] [facility] Prothrombin time (PT)on PT Coag (PPP) [Time] 10.8 s 9.0-11.6 [facility] PT Coag (PPP) [Time] Prothrombin time (PT) 9.0- 11.[address] [facility] RBC Auto (Bld) [#/Vol]on RBC (Bld) [#/Vol] 4.15 10 6/uL Low 4.70-6.10 [facility] RBC (Bld) [#/Vol] Erythrocytes [#/volu me] in Blood by Automated count Low 4.70-6.[address] [facility] Serum or plasma anion gap de terminationon 02-08-2024 Anion gap [Moles/Vol] 14.1 mmol/L Fi [facility] Anion gap [Moles/Vol] Serum or plasma an ion gap determination [facility] ALL CBC WITH AUTO DIFFon BASOPHILS ABSOLUTE AUTO 0.1 [facility] Healthcare Basophils/100 WBC (Bld) 1.2 % 0.2 - 2.0 % [facility] Eosinophils/100 WBC (Bld) 2.9 % 0.9 - 7.0 % [facility] Erythrocyte distribution width (RBC) [Ratio] 16.4 % High 11.0 - 15.0 % [facility] Hematocrit (Bld) [Volume fraction] 28.7 % Low 42.0 - 54.0 % [facility] Hemoglobin (Bld) [Mass/Vol] 8.7 g/dL Low 14.0 - 18.0 g/dL [facility] IMMATURE GRANULOCYTES ABS AUTO 0.06 High [facility] Immature granulocytes/100 WBC (Bld) 0.7 % High 0.0 - 0.5 % [facility] Interpretation and review of laboratory results Abnormal [facility] LYMPHOCYTES ABSOLUTE AUTO 1.8 [facility] Lymphocytes/100 WBC (Bld) 21.5 % 20.5 - 60.0 % [facility] MCH (RBC) [Entitic mass] 22.3 pg Low 25.9 - 34.0 pg [facility] MCHC (RBC) [Mass/Vol] 30.3 g/dL 29.9 - 35.2 g/dL [facility] MCV (RBC) [Entitic vol] 73.6 fL Low 80.0 - 94.0 fL [facility] MONOCYTES ABSOLUTE AUTO 0.7 [facility] Monocytes/100 WBC (Bld) 8.7 % 1.7 - 12.0 % [facility] NEUTROPHILS ABSOLUTE AUTO 5.4 [facility] Neutrophils/100 WBC (Bld) 65.0 % 43.0 - 75.0 % [facility] Platelet mean volume (Bld) [Entitic vol] 10.4 fL 9.5 - 13.5 fL [facility] TBH EO # 0.2 [facility] TB PLT 397 [facility] RBC 3.90 Low [facility] WBC 8.3 [facility] Activated partial thrombopla stin time (aPTT) in platelet poor plasma by coagulation aon 02-01-2024 aPTT Coag (PPP) [Time] 25.3 s 22.3-36.2 Fi [facility] aPTT Coag (PPP) [Time] Activated partial thromboplastin time (aPTT) in platelet poor plasma by coagulation a 22.3-36.[address] [facility] Basophils Auto (Bld) [#/Vol] on 02-01-2024 Basophils (Bld) [#/Vol] 0.1 10 3/uL 0.0-0.[address] [facility] Basophils (Bld) [#/Vol] Automated basophil count 0.0-0.1 [facility] Basophils/100 WBC Auto (Bld) on 02-01-2024 Basophils/100 WBC (Bld) 1.2 % 0.2-2.[address] [facility] Basophils/100 WBC (Bld) Automated basophil % 0.2-2.[address] [facility] Eosinophils/100 WBC Auto (Bl d)on 02-01-2024 Eosinophils/100 WBC (Bld) 2.9 % 0.9-7.[address] [facility] Eosinophils/100 WBC (Bld) Automated eosinophil % 0.9-7.[address] [facility] Erythrocyte distribution wid th Auto (RBC) [Ratio]on 02-01-2024 Erythrocyte distribution width (RBC) [Ratio] 16.4 % High 11.0-15.[address] [facility] Erythrocyte distribution width (RBC) [Ratio] Erythrocyte distribution width [Ratio] by Automated count High 11.0-15.[address] [facility] Estimated glomerular filtrat ion rate (GFR) non- Americanon 02-01-2024 GFR/1.73 sq M.predicted among non-blacks MDRD (S/P/Bld) [Vol rate/Area] 34 mL/min/{1.73_m2} Low >=[address] [facility] GFR/1.73 sq M.predicted among non-blacks MDRD (S/P/Bld) [Vol rate/Area] Estimated glomerular filtration rate (GFR) non- Low >=[address] [facility] Hematocrit Auto (Bld) [Volum e fraction]on 02-01-2024 Hematocrit (Bld) [Volume fraction] 28.7 % Low 42.0-54.[address] [facility] Hematocrit (Bld) [Volume fraction] Hematocrit [Volume Fraction] of Blood by Automated count Low 42.0-54.[address] [facility] Hemoglobin [Mass/volume] in Bloodon 02-01-2024 Hemoglobin (Bld) [Mass/Vol] 8.7 g/dL Low 14.0-18.[address] [facility] Hemoglobin (Bld) [Mass/Vol] Hemoglobin [Mass/volume] in Blood Low 14.0-18.[address] [facility] INR in Platelet poor plasma by Coagulation assayon 02-01-2024 INR Coag (PPP) [Relative time] 1.02 {INR} [facility] Comment on above: DESIRED INR:2.0-3.0 CONDITIONS NOT LISTED BELOW2.5-3.5 FOR PROSTHETIC HEART VALVE REPLACEMENT2.5-3.5 RECURRENT THROMBOSIS INR Coag (PPP) [Relative time] INR in Platelet poor plasma by Coagulation assay [facility] Comment on above: DESIRED INR:2.0-3.0 CONDITIONS NOT LISTED BELOW2.5-3.5 FOR PROSTHETIC HEART VALVE REPLACEMENT2.5-3.5 RECURRENT THROMBOSIS Laboratory - Chemistry and C hemistry - challengeon 02-01-2024 Calcium [Mass/Vol] 9.0 mg/dL 8.5-10.1 [facility] Chloride [Moles/Vol] 100 mmol/L 98-107 [facility] CO2 [Moles/Vol] 26.7 mmol/L 21.0-32.0 [facility] Creatinine [Mass/Vol] 2.03 mg/dL High 0.70-1.30 [facility] GFR/1.73 sq M.predicted MDRD (S/P/Bld) [Vol rate/Area] 41 mL/min/{1.73_m2} Low >=[address] [facility] Glucose [Mass/Vol] 268 mg/dL High 74-106 [facility] Potassium [Moles/Vol] 4.3 mmol/L 3.5-5.1 [facility] Sodium [Moles/Vol] 137 mmol/L 136-145 [facility] Urea nitrogen [Mass/Vol] 25.0 mg/dL High 7.0-18.[address] [facility] Urea nitrogen/Creatinine [Mass ratio] 12.3 mg/mg [facility] Laboratory - Hematology and Cell countson 02-01-2024 Immature granulocytes/100 WBC (Bld) 0.7 % High 0.0-0.[address] [facility] Leukocytes [#/volume] correc jorge for nucleated erythrocytes in Blood by Automated counon 02-01-2024 WBC corrected for nucl RBC Auto (Bld) [#/Vol] 8.3 10 3/uL 4.0-11.[address] [facility] WBC corrected for nucl RBC Auto (Bld) [#/Vol] Leukocytes [#/volume] corrected for nucleated erythrocytes in Blood by Automated coun .0-11.[address] [facility] Lymphocytes Auto (Bld) [#/Vo l]on 02-01-2024 Lymphocytes (Bld) [#/Vol] 1.8 10 3/uL 1.2-3.[address] [facility] Lymphocytes (Bld) [#/Vol] Lymphocytes [#/volume] in Blood by Automated count 1.2-3.[address] [facility] Lymphocytes/100 WBC Auto (Bl d)on 02-01-2024 Lymphocytes/100 WBC (Bld) 21.5 % 20.5-60.[address] [facility] Lymphocytes/100 WBC (Bld) Lymphocytes/100 leukocytes in Blood by Automated count 20.5-60.[address] [facility] MCH Auto (RBC) [Entitic mass ]on 02-01-2024 MCH (RBC) [Entitic mass] 22.3 pg Low 25.9-34.[address] [facility] MCH (RBC) [Entitic mass] MCH [Entitic mass] by Automated count Low 25.9-34.[address] [facility] MCHC Auto (RBC) [Mass/Vol]on 02-01-2024 MCHC (RBC) [Mass/Vol] 30.3 g/dL 29.9-35.2 [facility] MCHC (RBC) [Mass/Vol] MCHC [Mass/volume] by Automated count 29.9-35.[address] [facility] MCV Auto (RBC) [Entitic vol] on 02-01-2024 MCV (RBC) [Entitic vol] 73.6 fL Low 80.0-94.[address] [facility] MCV (RBC) [Entitic vol] MCV [Entitic volume] by Automated count Low 80.0-94.[address] [facility] Monocytes Auto (Bld) [#/Vol] on 02-01-2024 Monocytes (Bld) [#/Vol] 0.7 10 3/uL 0.3-0.[address] [facility] Monocytes (Bld) [#/Vol] Automated blood monocyte count 0.3-0.[address] [facility] Monocytes/100 WBC Auto (Bld) on 02-01-2024 Monocytes/100 WBC (Bld) 8.7 % 1.7-12.[address] [facility] Monocytes/100 WBC (Bld) Automated monocyte % 1.7-12.[address] [facility] Neutrophils Auto (Bld) [#/Vo l]on 02-01-2024 Neutrophils (Bld) [#/Vol] 5.4 10 3/uL 1.4-6.[address] [facility] Neutrophils (Bld) [#/Vol] Neutrophils [#/volume] in Blood by Automated count 1.4-6.[address] [facility] Neutrophils/100 WBC Auto (Bl d)on 02-01-2024 Neutrophils/100 WBC (Bld) 65.0 % 43.0-75.[address] [facility] Neutrophils/100 WBC (Bld) Automated neutrophil % 43.0-75.[address] [facility] No Panel Informationon 01-31 Eosinophils # (Auto) 0.2 10 3/uL 0.0-0.7 [facility] Immature Granulocyte # (Auto) 0.06 10 3/uL High 0.00-0.[address] [facility] 12.[address] [facility] 25.0 mg/dL High 7.0-18.[address] [facility] 0.2 10 3/uL 0.0-0.[address] [facility] 9.0 mg/dL 8.5-10.[address] [facility] 100 mmol/L 98-[address] [facility] 26.7 mmol/L 21.0-32.[address] [facility] 2.03 mg/dL High 0.70-1.[address] [facility] 0.06 10 3/uL High 0.00-0.[address] [facility] 41 Low >=[address] [facility] 0.7 % High 0.0-0.[address] [facility] 268 mg/dL High 74-[address] [facility] 4.3 mmol/L 3.5-5.[address] [facility] 137 mmol/L 136-[address] [facility] Platelet mean volume Auto (B ld) [Entitic vol]on 02-01-2024 Platelet mean volume (Bld) [Entitic vol] 10.4 fL 9.5-13.[address] [facility] Platelet mean volume (Bld) [Entitic vol] Platelet mean volume [Entitic volume] in Blood by Automated count 9.5-13. [facility] Platelets Auto (Bld) [#/Vol] on 02-01-2024 Platelets (Bld) [#/Vol] 397 10 3/uL 150-[address] [facility] Platelets (Bld) [#/Vol] Platelets [#/volume] in Blood by Automated count 150-[address] [facility] Prothrombin time (PT)on 01-04 PT Coag (PPP) [Time] 10.8 s 9.0-11.6 [facility] PT Coag (PPP) [Time] Prothrombin time (PT) 9.0- 11.[address] [facility] RBC Auto (Bld) [#/Vol]on RBC (Bld) [#/Vol] 3.90 10 6/uL Low 4.70-6.10 [facility] RBC (Bld) [#/Vol] Erythrocytes [#/volu me] in Blood by Automated count Low 4.70-6.[address] [facility] Serum or plasma anion gap de terminationon 02-01-2024 Anion gap [Moles/Vol] 14.6 mmol/L [facility] Anion gap [Moles/Vol] Serum or plasma an ion gap determination [facility] Provider Letteron 01-29-2024 Provider Letter Provider Letter January 29, 2024 MYRA PICKARD [address] [place] [address] [address] [place] [address] : 1965 Dear Myra, We have been trying to reach you [...] to this matter. Sincerely, [facility] [address], [place] [address] [facility] TRANSTHORACIC ECHO (TTE) COM PLETEon 01-17-2024 TRANSTHORACIC ECHO (TTE) COMPLETE [address], [address], [place] [address] TRANSTHORACIC ECHOCARDIOGRAM REPORT Patient Name: MYRA PICKARD Vanleer Physician: [id number] Bernard De La Cruz MD Study Date: 01/17/2024 Ordering Provider: [id number] BERNARD DE LA CRUZ MRN/PID: [id number] Fellow: Nurse: Date of /Age: 2 1965 / 58 years Air Hoist Operator: Ольга Mars RDCS, RVT Gender: M Additional Staff: Height: 182.88 cm Admit Date: Weight: 95.71 kg Admission Status: BSA / BMI: 2.18 m2 / 28.62 kg/m2 Department Location: [facility] Blood Pressure: 102 /58 mmHg Study Type: TRANSTHORACIC ECHO (TTE) COMPLETE Diagnosis/ICD: Shortness of breath-R06.02 Indication: CAD, PTCA, COPD, Diabetes, Hyperlipidemia, Former Smoker, Hypotension, Peripheral Vascular Disease, 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 Mike Montes M.D. ca Dictated: 01/08/2024 [id number] Transcribed: 01/08/2024 [facility] Comment on above: Result Comment: Elec tronically Signed By: Mike Montes MD\.br\Date and Time Signed: 01/11/24 18:26 EDT Coding Queryon 01-10-2024 Coding Query Coding Query From: Viviane Azul To: Mike Motnes MD; Cc: Monique Saldivar; Sent: 01/10/2024 14:42:56 EDT ! Subject: Coding Query (Template) CODING COMMUNICATION: _XX_ Procedure information missing: Please document the Pre and Post-Op Diagnosis. Please feel free to contact the coding department with any questions. Thank you! Marybeth Normal [facility] BMPon 01-08-2024 Anion gap [Moles/Vol] 13 mmol/L Normal 6-16 [facility] Comment on above: Performed By: #### 2 [id number] #### [facility] [address] [place] [address] Calcium [Mass/Vol] 9.1 mg/dL Normal 8.9-11.1 [facility] Comment on above: Performed By: #### 2 [id number] #### [facility] [address] [place] [address] Chloride [Moles/Vol] 103 mmol/L Normal 101-111 [facility] Comment on above: Performed By: #### 2 [id number] #### [facility] [address] [place] [address] CO2 [Moles/Vol] 25 mmol/L Normal 21-31 [facility] Comment on above: Performed By: #### 2 [id number] #### [facility] [address] [place] [address] Creatinine [Mass/Vol] 1.9 mg/dL High 0.5-1.3 [facility] Comment on above: Performed By: #### 2 [id number] #### [facility] [address] [place] [address] Glucose [Mass/Vol] 138 mg/dL Normal 55-199 [facility] Comment on above: Performed By: #### 2 [id number] #### [facility] [address] [place] [address] Potassium [Moles/Vol] 4.2 mmol/L Normal 3.5-5.3 [facility] Comment on above: Performed By: #### 2 [id number] #### [facility] [address] [place] [address] Sodium [Moles/Vol] 137 mmol/L Normal 135-145 [facility] Comment on above: Performed By: #### 2 [id number] #### [facility] [address] [place] [address] Urea nitrogen [Mass/Vol] 26 mg/dL High 5-21 [facility] Comment on above: Performed By: #### 2 [id number] #### [facility] [address] [place] [address] Urea nitrogen/Creatinine [Mass ratio] 14 No Units Normal 10-20 [facility] Comment on above: Performed By: #### 2 [id number] #### [facility] [address] [place] [address] CBC w/ Auto Diffon 4 Basophils/100 WBC (Bld) 1.2 % Normal 0.0-2.0 [facility] Comment on above: Performed By: #### 2 [id number] #### [facility] [address] [place] [address] Basophils/Leukocytes Auto (Bld) [Pure # fraction] 0.1 E9/L Normal 0.0-0.2 [facility] Comment on above: Performed By: #### 2 [id number] #### [facility] [address] [place] [address] Eosinophils (Bld) [#/Vol] 0.4 E9/L Normal 0.0-0.5 [facility] Comment on above: Performed By: #### 2 [id number] #### [facility] [address] [place] [address] Eosinophils/100 WBC (Bld) 4.3 % Normal 0.0-8.0 [facility] Comment on above: Performed By: #### 2 [id number] #### [facility] [address] [place] [address] Erythrocyte distribution width (RBC) [Ratio] 17.3 % High 10.9-14.2 [facility] Comment on above: Performed By: #### 2 [id number] #### [facility] [address] [place] [address] Hematocrit (Bld) [Volume fraction] 26.8 % Low 37.7-49.0 [facility] Comment on above: Performed By: #### 2 [id number] #### [facility] [address] [place] [address] Hemoglobin (Bld) [Mass/Vol] 8.8 g/dL Low 13.5-17.5 [facility] Comment on above: Performed By: #### 2 [id number] #### [facility] [address] [place] [address] Hypochromia Auto Ql (Bld) PRESENT Invalid Interpretation Code [facility] Comment on above: Performed By: #### 2 [id number] #### [facility] [address] [place] [address] Lymphocytes (Bld) [#/Vol] 2.3 E9/L Normal 1.0-4.0 [facility] Comment on above: Performed By: #### 2 [id number] #### [facility] [address] [place] [address] Lymphocytes/100 WBC (Bld) 22.6 % Normal 14.0-50.0 [facility] Comment on above: Performed By: #### 2 [id number] #### [facility] [address] [place] [address] MCH (RBC) [Entitic mass] 24.5 pg Low 27.0-34.0 [facility] Comment on above: Performed By: #### 2 [id number] #### [facility] [address] [place] [address] MCHC (RBC) [Mass/Vol] 33.0 g/dL Normal 31.4-36.0 [facility] Comment on above: Performed By: #### 2 [id number] #### [facility] [address] [place] [address] MCV (RBC) [Entitic vol] 74.2 fL Low 80.0-100.0 [facility] Comment on above: Performed By: #### 2 [id number] #### [facility] [address] [place] [address] Microcytes Ql (Bld) PRESENT Invalid Interpretation Code [facility] Comment on above: Performed By: #### 2 [id number] #### [facility] [address] [place] [address] Monocytes (Bld) [#/Vol] 0.9 E9/L Normal 0.2-1.0 [facility] Comment on above: Performed By: #### 2 [id number] #### [facility] [address] [place] [address] Neutrophils (Bld) [#/Vol] 6.6 E9/L Normal 2.0-7.5 [facility] Comment on above: Performed By: #### 2 [id number] #### [facility] [address] [place] [address] Neutrophils/100 WBC (Bld) 63.4 % Normal 36.0-75.0 [facility] Comment on above: Performed By: #### 2 [id number] #### [facility] [address] [place] [address] Platelet 377.0 E9/L Normal 150.0-500. 0 [facility] Comment on above: Performed By: #### 2 [id number] #### [facility] [address] [place] [address] Platelet mean volume (Bld) [Entitic vol] 8.7 fL Normal 6.4-10.8 [facility] Comment on above: Performed By: #### 2 756280 #### [facility] [address] [place] [address] RBC (Bld) [#/Vol] 3.6 E12/L Low 4.3-5.9 [facility] Comment on above: Performed By: #### 2 [id number] #### [facility] [address] [place] [address] RBC size Nom (Bld) SEE MORPHOLOGY Invalid Interpretation Code [facility] Comment on above: Performed By: #### 2 [id number] #### [facility] [address] [place] [address] WBC corrected for nucl RBC Auto (Bld) [#/Vol] 10.4 E9/L Normal 4.0-11.0 [facility] Comment on above: Performed By: #### 2 [id number] #### [facility] [address] [place] [address] Inpatient Clinical Summaryon 01-08-2024 Inpatient Clinical Summary Inpatient Clinical Summary [address] [address] Clinical Summary Person Information: Name: MYRA PICKARD SR Age: 58 Years : 1965 Sex: Male PCP: KUNS DO, TERESA Marital Status: Race: White Ethnicity: Non- or Language: Namibian Visit Id: Visit Reason: I70.261 Speciality: Acuity: Enc Type: Ambulatory/Same Day Surgery Med Service: Surgery Arrival: 01/08/2024 11:49:03 Discharge: Dispo Type: Address: [address] [place] [address] [address] [facility] [id number] Provider Notes: Diagnosis: Problems Active Gross hematuria [...] a day. Care Team Members: Attending Physician: Mike Montes MD Consulting Physician: Referring Physician: Mike Montes MD Follow up: With: Address: When: Mike Montes [address] [place], [place] [id number] Business (1) Comments: Call for followup appointment Type Location Start [facility] Office Visit [facility] 02/12/2024 1:15 PM 02/12/2024 1:30 PM Confirmed Patient Education Information: CV - Cardiovascular PCI Discharge Instructions (CUSTOM) Normal [facility] Inpatient Patient Summaryon 01-08-2024 Inpatient Patient Summary Inpatient Patient Summary [address] [address] Patient Discharge Instructions PERSON INFORMATION Name: MYRA PICKARD SR Date of : 1965 Current Date: 01/08/2024 16:24:43 PHYSICIANS Admitting Physician: Mike Montes MD Primary Care Physician: TERESA LYNCH DO PCP Comment: Discharge Diagnosis: Condition at Discharge: Improved MYRA PICKARD SR has been given the following [...] results: None Follow up: With: Address: When: Mike Montes [address] [place] [address] [facility] (1) Comments: Call for followup appointment In the event that this physician does not participate in your insurance network, please consult with your insurance company to find a nearby participating provider. Type Location Start [facility] Office Visit [facility] 02/12/2024 1:15 PM 02/12/2024 1:30 PM Confirmed Comment: I, MYRA PICKARD SR, have received the attached patient [...] Capsules By (more content not included)... Normal [facility] Interdisciplinary Note - Ayo singon 01-08-2024 Interdisciplinary Note - Nursing Interdisciplinary Note - Nursing 1200-Right foot dressing removed, noted moderate amount of seropurlent drainage with foul smelling odor, noted 75% slough and 25% granulation. assessed wound and aware. 1500-Spoke with office and received current dressing orders to apply when patient leaves today. 1650-Right foot dressing reapplied. Saline saturated 4x4 applied to open area from right TMA site and covered with kerlex. Cast padding and KATHERYN applied. Reapplied 1/2 cast that patient arrived with and covered with cast padding and KATHERYN. Normal [facility] eGFRon 01-08-2024 eGFR 40 mL/min/1.73 m2 Low >=59 [facility] Comment on above: Order Comment: Order added by Discern Expert. Performed By: #### [id number] #### [facility] [address] [place] [address] Cholesterol in LDL Calc [Mas s/Vol]on 12-31-2023 Cholesterol in LDL [Mass/Vol] 47.0 mg/dL [facility] Comment on above: <100 mg/dl [id number] 0-129 mg/dl NEAR OR ABOVE [id number] mg/dl BORDERLINE [id number] mg/dl HIGH>190 mg/dl VERY HIGH Cholesterol in VLDL Calc [Ma ss/Vol]on 12-31-2023 Cholesterol in VLDL [Mass/Vol] 54.0 mg/dL [facility] Erythrocyte distribution wid th Auto (RBC) [Ratio]on 12-31-2023 Erythrocyte distribution width (RBC) [Ratio] 15.9 % High 11.0-15.[address] [facility] Estimated glomerular filtrat ion rate (GFR) non- Americanon 12-31-2023 GFR/1.73 sq M.predicted among non-blacks MDRD (S/P/Bld) [Vol rate/Area] 31 mL/min/{1.73_m2} Low >=[address] [facility] Globulin Calc (S) [Mass/Vol] on 12-31-2023 Globulin (S) [Mass/Vol] 3.9 g/dL [facility] Glucose mean value [Mass/vol ume] in Blood Estimated from glycated hemoglobinon 12-31-2023 Average glucose Estimated from glycated hemoglobin (Bld) [Mass/Vol] 163 mg/dL [facility] Hematocrit Auto (Bld) [Volum e fraction]on 12-31-2023 Hematocrit (Bld) [Volume fraction] 25.6 % Low 42.0-54.[address] [facility] Hemoglobin [Mass/volume] in Bloodon 12-31-2023 Hemoglobin (Bld) [Mass/Vol] 8.0 g/dL Low 14.0-18.[address] [facility] Iron binding capacity [Mass/ volume] in Serum or Plasmaon 12-31-2023 Iron binding capacity [Mass/Vol] 286.0 ug/dL 250.0-450. [address] [facility] Iron saturation [Mass Fracti on] in Serum or Plasmaon 12-31-2023 Iron saturation [Mass fraction] 2.8 % [facility] Laboratory - Chemistry and C hemistry - challengeon 12-31-2023 Cobalamin (Vitamin B12) [Mass/Vol] 156.0 pg/mL Low 193.0-986. [address] [facility] Ferritin [Mass/Vol] 16.0 ng/mL Low 26.0-388.0 [facility] Iron [Mass/Vol] 8.0 ug/dL Low 65.0-175.[address] [facility] Transferrin [Mass/Vol] 241 mg/dL 177-329 [facility] Comment on above: Performed at: [facility] [employer] [place] [id number] Director: Uriel Borrero PhD, Phone: [phone] Albumin [Mass/Vol] 2.4 g/dL Low 3.4-5.0 [facility] ALP [Catalytic activity/Vol] 172 U/L High 46-[address] [facility] ALT [Catalytic activity/Vol] 21 U/L 16-[address] [facility] AST [Catalytic activity/Vol] 8 U/L Low 15-[address] [facility] Bilirubin [Mass/Vol] 0.2 mg/dL 0.2-1.0 [facility] Calcium [Mass/Vol] 8.4 mg/dL Low 8.5-10.1 [facility] Chloride [Moles/Vol] 98 mmol/L 98-107 [facility] Cholesterol [Mass/Vol] 127 mg/dL <=200 [facility] Cholesterol in HDL [Mass/Vol] 26 mg/dL Low 40-[address] [facility] Comment on above: > or =60 mg/dl - LOW CARDIOVASCULAR RISK<40 mg/dl - HIGH CARDIOVASCULAR RISK CO2 [Moles/Vol] 30.5 mmol/L 21.0-32.0 [facility] Creatinine [Mass/Vol] 2.22 mg/dL High 0.70-1.30 [facility] GFR/1.73 sq M.predicted MDRD (S/P/Bld) [Vol rate/Area] 37 mL/min/{1.73_m2} Low >=[address] [facility] Glucose [Mass/Vol] 348 mg/dL High 74-106 [facility] Potassium [Moles/Vol] 3.9 mmol/L 3.5-5.1 [facility] Protein [Mass/Vol] 6.3 g/dL Low 6.4-8.2 [facility] Sodium [Moles/Vol] 137 mmol/L 136-145 [facility] Triglyceride [Mass/Vol] 270 mg/dL High <=[address] [facility] TSH Qn 3.218 m[IU]/L 0.358-3.[address] [facility] Urea nitrogen [Mass/Vol] 21.0 mg/dL High 7.0-18.[address] [facility] Urea nitrogen/Creatinine [Mass ratio] 9.5 mg/mg [facility] Laboratory - Hematology and Cell countson 12-31-2023 HbA1c (Bld) [Mass fraction] 7.3 % High 4.5-6.[address] [facility] Comment on above: ADA RECOMMENDED LIMI T 4.0 - 6.0ADA THERAPEUTIC TARGET < 7.0ACTION SUGGESTED> 7.0 Leukocytes [#/volume] correc jorge for nucleated erythrocytes in Blood by Automated counon 12-31-2023 WBC corrected for nucl RBC Auto (Bld) [#/Vol] 8.1 10 3/uL 4.0-11.[address] [facility] MCH Auto (RBC) [Entitic mass ]on 12-31-2023 MCH (RBC) [Entitic mass] 24.3 pg Low 25.9-34.[address] [facility] MCHC Auto (RBC) [Mass/Vol]on 12-31-2023 MCHC (RBC) [Mass/Vol] 31.3 g/dL 29.9-35.2 [facility] MCV Auto (RBC) [Entitic vol] on 12-31-2023 MCV (RBC) [Entitic vol] 77.8 fL Low 80.0-94.[address] [facility] No Panel Informationon 12-30 Folate 5.6 ng/mL >3.[address] [facility] Comment on above: A serum folate vivian ntration of less than 3.1 ng/mL isconsidered to represent clinical deficiency.Performed at: [facility] [id number] [place], [place] [id number] Director: Uriel Borrero PhD, Phone: [phone] 5.6 ng/mL >3.[address] [facility] 241 mg/dL 177-[address] [facility] 156.0 pg/mL Low 193.0-986. [address] [facility] 16.0 ng/mL Low 26.0-388.[address] [facility] 8.0 ug/dL Low 65.0-175.[address] [facility] Troponin I High Sensitivity 5.8 pg/mL 4.0-76.[address] [facility] Comment on above: CUT-OFF POINTS HAVE [...] DIAGNOSTIC AND CLINICAL INFORMATION. 5.8 pg/mL 4.0-76.[address] [facility] 3.218 u[iU]/mL 0.358-3.[address] [facility] 7.3 % High 4.5-6.[address] [facility] 127 mg/dL <=[address] [facility] 26 mg/dL Low 40-[address] [facility] 2.4 g/dL Low 3.4-5.[address] [facility] 172 U/L High 46-[address] [facility] 270 mg/dL High <=[address] [facility] 21 U/L 16-[address] [facility] 8 U/L Low 15-[address] [facility] 9.[address] [facility] 21.0 mg/dL High 7.0-18.[address] [facility] 8.4 mg/dL Low 8.5-10.[address] [facility] 98 mmol/L 98-[address] [facility] 30.5 mmol/L 21.0-32.[address] [facility] 2.22 mg/dL High 0.70-1.[address] [facility] 37 Low >=[address] [facility] 348 mg/dL High 74-[address] [facility] 3.9 mmol/L 3.5-5.[address] [facility] 137 mmol/L 136-[address] [facility] 0.2 mg/dL 0.2-1.[address] [facility] 6.3 g/dL Low 6.4-8.[address] [facility] Platelet mean volume Auto (B ld) [Entitic vol]on 12-31-2023 Platelet mean volume (Bld) [Entitic vol] 10.4 fL 9.5-13.[address] [facility] Platelets Auto (Bld) [#/Vol] on 12-31-2023 Platelets (Bld) [#/Vol] 297 10 3/uL 150-[address] [facility] RBC Auto (Bld) [#/Vol]on RBC (Bld) [#/Vol] 3.29 10 6/uL Low 4.70-6.10 [facility] Serum or plasma albumin/glob ulin mass ratioon 12-31-2023 Albumin/Globulin [Mass ratio] 0.6 {ratio} [facility] Serum or plasma anion gap de terminationon 12-31-2023 Anion gap [Moles/Vol] 12.4 mmol/L [facility] Serum or plasma total choles terol/high density lipoprotein (HDL) cholesterol mass stone 12-31-2023 Cholesterol.total/Chol esterol in HDL [Mass ratio] 4.9 {ratio} [facility] Comment on above: 3.3 - 4.4 LOW RISK4. 4 - 7.1 AVERAGE RISK7.1 - 11.0 MODERATE RISK>11.0 HIGH RISK Basophils Auto (Bld) [#/Vol] on 12-30-2023 Basophils (Bld) [#/Vol] 0.1 10 3/uL 0.0-0.[address] [facility] Basophils/100 WBC Auto (Bld) on 12-30-2023 Basophils/100 WBC (Bld) 0.7 % 0.2-2.[address] [facility] Eosinophils/100 WBC Auto (Bl d)on 12-30-2023 Eosinophils/100 WBC (Bld) 2.3 % 0.9-7.[address] [facility] Erythrocyte distribution wid th Auto (RBC) [Ratio]on 12-30-2023 Erythrocyte distribution width (RBC) [Ratio] 15.9 % High 11.0-15.[address] [facility] Estimated glomerular filtrat ion rate (GFR) non- Americanon 12-30-2023 GFR/1.73 sq M.predicted among non-blacks MDRD (S/P/Bld) [Vol rate/Area] 30 mL/min/{1.73_m2} Low >=[address] [facility] Hematocrit Auto (Bld) [Volum e fraction]on 12-30-2023 Hematocrit (Bld) [Volume fraction] 27.1 % Low 42.0-54.[address] [facility] Hemoglobin [Mass/volume] in Bloodon 12-30-2023 Hemoglobin (Bld) [Mass/Vol] 8.5 g/dL Low 14.0-18.[address] [facility] Laboratory - Chemistry and C hemistry - challengeon 12-30-2023 Calcium [Mass/Vol] 9.2 mg/dL 8.5-10.1 [facility] Chloride [Moles/Vol] 95 mmol/L Low 98-107 [facility] CO2 [Moles/Vol] 27.2 mmol/L 21.0-32.0 [facility] Creatinine [Mass/Vol] 2.23 mg/dL High 0.70-1.30 [facility] GFR/1.73 sq M.predicted MDRD (S/P/Bld) [Vol rate/Area] 37 mL/min/{1.73_m2} Low >=[address] [facility] Glucose [Mass/Vol] 193 mg/dL High 74-106 [facility] Potassium [Moles/Vol] 3.6 mmol/L 3.5-5.1 [facility] Sodium [Moles/Vol] 132 mmol/L Low 136-145 [facility] Urea nitrogen [Mass/Vol] 22.0 mg/dL High 7.0-18.[address] [facility] Urea nitrogen/Creatinine [Mass ratio] 9.9 mg/mg [facility] Laboratory - Hematology and Cell countson 12-30-2023 Immature granulocytes/100 WBC (Bld) 0.7 % High 0.0-0.[address] [facility] Leukocytes [#/volume] correc jorge for nucleated erythrocytes in Blood by Automated counon 12-30-2023 WBC corrected for nucl RBC Auto (Bld) [#/Vol] 10.7 10 3/uL 4.0-11.[address] [facility] Lymphocytes Auto (Bld) [#/Vo l]on 12-30-2023 Lymphocytes (Bld) [#/Vol] 2.3 10 3/uL 1.2-3.[address] [facility] Lymphocytes/100 WBC Auto (Bl d)on 12-30-2023 Lymphocytes/100 WBC (Bld) 21.5 % 20.5-60.[address] [facility] MCH Auto (RBC) [Entitic mass ]on 12-30-2023 MCH (RBC) [Entitic mass] 24.4 pg Low 25.9-34.[address] [facility] MCHC Auto (RBC) [Mass/Vol]on 12-30-2023 MCHC (RBC) [Mass/Vol] 31.4 g/dL 29.9-35.2 [facility] MCV Auto (RBC) [Entitic vol] on 12-30-2023 MCV (RBC) [Entitic vol] 77.7 fL Low 80.0-94.[address] [facility] Monocytes Auto (Bld) [#/Vol] on 12-30-2023 Monocytes (Bld) [#/Vol] 0.9 10 3/uL High 0.3-0.[address] [facility] Monocytes/100 WBC Auto (Bld) on 12-30-2023 Monocytes/100 WBC (Bld) 8.4 % 1.7-12.[address] [facility] Neutrophils Auto (Bld) [#/Vo l]on 12-30-2023 Neutrophils (Bld) [#/Vol] 7.1 10 3/uL High 1.4-6.[address] [facility] Neutrophils/100 WBC Auto (Bl d)on 12-30-2023 Neutrophils/100 WBC (Bld) 66.4 % 43.0-75.[address] [facility] No Panel Informationon 12-29 Troponin I High Sensitivity 5.7 pg/mL 4.0-76.[address] [facility] Comment on above: CUT-OFF POINTS HAVE [...] DIAGNOSTIC AND CLINICAL INFORMATION. 5.7 pg/mL 4.0-76.[address] [facility] Eosinophils # (Auto) 0.3 10 3/uL 0.0-0.7 [facility] Immature Granulocyte # (Auto) 0.07 10 3/uL High 0.00-0.[address] [facility] 9.[address] [facility] 22.0 mg/dL High 7.0-18.[address] [facility] 0.3 10 3/uL 0.0-0.[address] [facility] 9.2 mg/dL 8.5-10.[address] [facility] 95 mmol/L Low 98-[address] [facility] 27.2 mmol/L 21.0-32.[address] [facility] 2.23 mg/dL High 0.70-1.[address] [facility] 0.07 10 3/uL High 0.00-0.[address] [facility] 37 Low >=[address] [facility] 0.7 % High 0.0-0.[address] [facility] 193 mg/dL High 74-[address] [facility] 3.6 mmol/L 3.5-5.[address] [facility] 132 mmol/L Low 136-[address] [facility] Platelet mean volume Auto (B ld) [Entitic vol]on 12-30-2023 Platelet mean volume (Bld) [Entitic vol] 10.4 fL 9.5-13.[address] [facility] Platelets Auto (Bld) [#/Vol] on 12-30-2023 Platelets (Bld) [#/Vol] 368 10 3/uL 150-[address] [facility] RBC Auto (Bld) [#/Vol]on RBC (Bld) [#/Vol] 3.49 10 6/uL Low 4.70-6.10 [facility] Serum or plasma anion gap de terminationon 12-30-2023 Anion gap [Moles/Vol] 13.4 mmol/L [facility] Basophils Auto (Bld) [#/Vol] on 12-23-2023 Basophils (Bld) [#/Vol] 0.1 10 3/uL 0.0-0.[address] [facility] Basophils/100 WBC Auto (Bld) on 12-23-2023 Basophils/100 WBC (Bld) 0.4 % 0.2-2.[address] [facility] Eosinophils/100 WBC Auto (Bl d)on 12-23-2023 Eosinophils/100 WBC (Bld) 1.0 % 0.9-7.[address] [facility] Erythrocyte distribution wid th Auto (RBC) [Ratio]on 12-23-2023 Erythrocyte distribution width (RBC) [Ratio] 16.4 % High 11.0-15.[address] [facility] Estimated glomerular filtrat ion rate (GFR) non- Americanon 12-23-2023 GFR/1.73 sq M.predicted among non-blacks MDRD (S/P/Bld) [Vol rate/Area] 37 mL/min/{1.73_m2} Low >=[address] [facility] Globulin Calc (S) [Mass/Vol] on 12-23-2023 Globulin (S) [Mass/Vol] 3.3 g/dL [facility] Hematocrit Auto (Bld) [Volum e fraction]on 12-23-2023 Hematocrit (Bld) [Volume fraction] 23.6 % Low 42.0-54.[address] [facility] Comment on above: RESULTS CALLED TO MARYSE BOUDREAUX RN Hemoglobin [Mass/volume] in Bloodon 12-23-2023 Hemoglobin (Bld) [Mass/Vol] 7.1 g/dL Low 14.0-18.[address] [facility] Laboratory - Chemistry and C hemistry - challengeon 12-23-2023 Albumin [Mass/Vol] 2.2 g/dL Low 3.4-5.0 [facility] ALP [Catalytic activity/Vol] 127 U/L High 46-[address] [facility] ALT [Catalytic activity/Vol] 13 U/L Low 16-[address] [facility] AST [Catalytic activity/Vol] 10 U/L Low 15-[address] [facility] Bilirubin [Mass/Vol] 0.2 mg/dL 0.2-1.0 [facility] Calcium [Mass/Vol] 7.4 mg/dL Low 8.5-10.1 [facility] Chloride [Moles/Vol] 103 mmol/L 98-107 [facility] CO2 [Moles/Vol] 23.4 mmol/L 21.0-32.0 [facility] Creatinine [Mass/Vol] 1.88 mg/dL High 0.70-1.30 [facility] GFR/1.73 sq M.predicted MDRD (S/P/Bld) [Vol rate/Area] 45 mL/min/{1.73_m2} Low >=[address] [facility] Glucose [Mass/Vol] 357 mg/dL High 74-106 [facility] Magnesium [Mass/Vol] 1.5 mg/dL Low 1.8-2.4 [facility] Potassium [Moles/Vol] 4.4 mmol/L 3.5-5.1 [facility] Protein [Mass/Vol] 5.5 g/dL Low 6.4-8.2 [facility] Sodium [Moles/Vol] 136 mmol/L 136-145 [facility] Urea nitrogen [Mass/Vol] 30.0 mg/dL High 7.0-18.[address] [facility] Urea nitrogen/Creatinine [Mass ratio] 16.0 mg/mg [facility] Laboratory - Hematology and Cell countson 12-23-2023 Immature granulocytes/100 WBC (Bld) 0.9 % High 0.0-0.[address] [facility] Leukocytes [#/volume] correc jorge for nucleated erythrocytes in Blood by Automated counon 12-23-2023 WBC corrected for nucl RBC Auto (Bld) [#/Vol] 13.3 10 3/uL High 4.0-11.[address] [facility] Lymphocytes Auto (Bld) [#/Vo l]on 12-23-2023 Lymphocytes (Bld) [#/Vol] 2.1 10 3/uL 1.2-3.[address] [facility] Lymphocytes/100 WBC Auto (Bl d)on 12-23-2023 Lymphocytes/100 WBC (Bld) 15.7 % Low 20.5-60.[address] [facility] MCH Auto (RBC) [Entitic mass ]on 12-23-2023 MCH (RBC) [Entitic mass] 25.0 pg Low 25.9-34.[address] [facility] MCHC Auto (RBC) [Mass/Vol]on 12-23-2023 MCHC (RBC) [Mass/Vol] 30.1 g/dL 29.9-35.2 [facility] MCV Auto (RBC) [Entitic vol] on 12-23-2023 MCV (RBC) [Entitic vol] 83.1 fL 80.0-94.[address] [facility] Monocytes Auto (Bld) [#/Vol] on 12-23-2023 Monocytes (Bld) [#/Vol] 0.6 10 3/uL 0.3-0.[address] [facility] Monocytes/100 WBC Auto (Bld) on 12-23-2023 Monocytes/100 WBC (Bld) 4.7 % 1.7-12.[address] [facility] Neutrophils Auto (Bld) [#/Vo l]on 12-23-2023 Neutrophils (Bld) [#/Vol] 10.3 10 3/uL High 1.4-6.[address] [facility] Neutrophils/100 WBC Auto (Bl d)on 12-23-2023 Neutrophils/100 WBC (Bld) 77.3 % High 43.0-75.[address] [facility] No Panel Informationon 12-22 Eosinophils # (Auto) 0.1 10 3/uL 0.0-0.7 [facility] Immature Granulocyte # (Auto) 0.12 10 3/uL High 0.00-0.[address] [facility] 1.5 mg/dL Low 1.8-2.[address] [facility] 2.2 g/dL Low 3.4-5.[address] [facility] 0.1 10 3/uL 0.0-0.[address] [facility] 127 U/L High 46-[address] [facility] 13 U/L Low 16-[address] [facility] 10 U/L Low 15-[address] [facility] 16.[address] [facility] 0.12 10 3/uL High 0.00-0.[address] [facility] 30.0 mg/dL High 7.0-18.[address] [facility] 0.9 % High 0.0-0.[address] [facility] 7.4 mg/dL Low 8.5-10.[address] [facility] 103 mmol/L 98-[address] [facility] 23.4 mmol/L 21.0-32.[address] [facility] 1.88 mg/dL High 0.70-1.[address] [facility] 45 Low >=[address] [facility] 357 mg/dL High 74-[address] [facility] 4.4 mmol/L 3.5-5.[address] [facility] 136 mmol/L 136-[address] [facility] 0.2 mg/dL 0.2-1.[address] [facility] 5.5 g/dL Low 6.4-8.[address] [facility] Platelet mean volume Auto (B ld) [Entitic vol]on 12-23-2023 Platelet mean volume (Bld) [Entitic vol] 10.3 fL 9.5-13.[address] [facility] Platelets Auto (Bld) [#/Vol] on 12-23-2023 Platelets (Bld) [#/Vol] 373 10 3/uL 150-[address] [facility] RBC Auto (Bld) [#/Vol]on RBC (Bld) [#/Vol] 2.84 10 6/uL Low 4.70-6.10 [facility] Serum or plasma albumin/glob ulin mass ratioon 12-23-2023 Albumin/Globulin [Mass ratio] 0.7 {ratio} [facility] Serum or plasma anion gap de terminationon 12-23-2023 Anion gap [Moles/Vol] 14.0 mmol/L [facility] Basophils Auto (Bld) [#/Vol] on 12-22-2023 Basophils (Bld) [#/Vol] 0.0 10 3/uL 0.0-0.[address] [facility] Basophils/100 WBC Auto (Bld) on 12-22-2023 Basophils/100 WBC (Bld) 0.2 % 0.2-2.[address] [facility] Eosinophils/100 WBC Auto (Bl d)on 12-22-2023 Eosinophils/100 WBC (Bld) 0.1 % Low 0.9-7.[address] [facility] Erythrocyte distribution wid th Auto (RBC) [Ratio]on 12-22-2023 Erythrocyte distribution width (RBC) [Ratio] 16.5 % High 11.0-15.[address] [facility] Estimated glomerular filtrat ion rate (GFR) non- Americanon 12-22-2023 GFR/1.73 sq M.predicted among non-blacks MDRD (S/P/Bld) [Vol rate/Area] 23 mL/min/{1.73_m2} Low >=[address] [facility] Globulin Calc (S) [Mass/Vol] on 12-22-2023 Globulin (S) [Mass/Vol] 3.8 g/dL [facility] Hematocrit Auto (Bld) [Volum e fraction]on 12-22-2023 Hematocrit (Bld) [Volume fraction] 25.4 % Low 42.0-54.[address] [facility] Hemoglobin [Mass/volume] in Bloodon 12-22-2023 Hemoglobin (Bld) [Mass/Vol] 7.6 g/dL Low 14.0-18.[address] [facility] Laboratory - Chemistry and C hemistry - challengeon 12-22-2023 Bilirubin Ql (U) Negative NEGATIVE [facility] Glucose (U) [Mass/Vol] mg/dL Abnormal NEGATIVE [facility] Ql (U) Negative NEGATIVE [facility] pH (U) 6.5 [pH] 5.0-9.[address] [facility] Specific gravity (U) [Rel density] <=1.005 Abnormal 1.005-1.[address] [facility] Urobilinogen Qn (U) 0.2 {Brendan'U}/dL 0.2-1.[address] [facility] Calcium [Mass/Vol] 7.2 mg/dL Low 8.5-10.1 [facility] Chloride [Moles/Vol] 95 mmol/L Low 98-107 [facility] CO2 [Moles/Vol] 21.7 mmol/L 21.0-32.0 [facility] Creatinine [Mass/Vol] 2.80 mg/dL High 0.70-1.30 [facility] GFR/1.73 sq M.predicted MDRD (S/P/Bld) [Vol rate/Area] 28 mL/min/{1.73_m2} Low >=[address] [facility] Glucose [Mass/Vol] 683 mg/dL High 74-106 [facility] Comment on above: RESULTS CALLED TO Me Faraz Pickard RN Potassium [Moles/Vol] 4.8 mmol/L 3.5-5.1 [facility] Sodium [Moles/Vol] 129 mmol/L Low 136-145 [facility] Urea nitrogen [Mass/Vol] 27.0 mg/dL High 7.0-18.[address] [facility] Urea nitrogen/Creatinine [Mass ratio] 9.6 mg/mg [facility] Albumin [Mass/Vol] 2.3 g/dL Low 3.4-5.0 [facility] ALP [Catalytic activity/Vol] 143 U/L High 46-[address] [facility] ALT [Catalytic activity/Vol] 15 U/L Low 16-[address] [facility] AST [Catalytic activity/Vol] 9 U/L Low 15-[address] [facility] Bilirubin [Mass/Vol] 0.2 mg/dL 0.2-1.0 [facility] Magnesium [Mass/Vol] 0.9 mg/dL Low 1.8-2.4 [facility] Comment on above: RESULTS CALLED TO FATIMAH SANTIAGO RN Natriuretic peptide B (Bld) [Mass/Vol] 322.0 pg/mL <=900.[address] [facility] Protein [Mass/Vol] 6.1 g/dL Low 6.4-8.2 [facility] - Hematology and Cell countson 12-22-2023 Immature granulocytes/100 WBC (Bld) 0.9 % High 0.0-0.[address] [facility] Laboratory - Specimen inform ationon 12-22-2023 Appearance (U) CLEAR CLEAR [facility] Color (U) LT. YELLOW YELLOW [facility] Laboratory - Urinalysison Leukocyte esterase Test strip Ql (U) Negative NEGATIVE [facility] Mucus Ql (Urine sed) NONE SEEN NONE SEEN [facility] Nitrite Ql (U) Negative NEGATIVE [facility] Protein Ql (U) Negative NEG/TRACE [facility] Leukocytes [#/volume] correc jorge for nucleated erythrocytes in Blood by Automated counon 12-22-2023 WBC corrected for nucl RBC Auto (Bld) [#/Vol] 11.7 10 3/uL High 4.0-11.[address] [facility] Lymphocytes Auto (Bld) [#/Vo l]on 12-22-2023 Lymphocytes (Bld) [#/Vol] 0.9 10 3/uL Low 1.2-3.[address] [facility] Lymphocytes/100 WBC Auto (Bl d)on 12-22-2023 Lymphocytes/100 WBC (Bld) 7.6 % Low 20.5-60.[address] [facility] MCH Auto (RBC) [Entitic mass ]on 12-22-2023 MCH (RBC) [Entitic mass] 24.4 pg Low 25.9-34.[address] [facility] MCHC Auto (RBC) [Mass/Vol]on 12-22-2023 MCHC (RBC) [Mass/Vol] 29.9 g/dL 29.9-35.2 [facility] MCV Auto (RBC) [Entitic vol] on 12-22-2023 MCV (RBC) [Entitic vol] 81.7 fL 80.0-94.[address] [facility] Monocytes Auto (Bld) [#/Vol] on 12-22-2023 Monocytes (Bld) [#/Vol] 0.2 10 3/uL Low 0.3-0.[address] [facility] Monocytes/100 WBC Auto (Bld) on 12-22-2023 Monocytes/100 WBC (Bld) 1.4 % Low 1.7-12.[address] [facility] Neutrophils Auto (Bld) [#/Vo l]on 12-22-2023 Neutrophils (Bld) [#/Vol] 10.5 10 3/uL High 1.4-6.[address] [facility] Neutrophils/100 WBC Auto (Bl d)on 12-22-2023 Neutrophils/100 WBC (Bld) 89.8 % High 43.0-75.[address] [facility] No Panel Informationon 12-21 Urine Bacteria NONE SEEN #/HPF NONE SEEN [facility] Urine Occult Blood Negative NEGATIVE [facility] Urine Other Casts NONE SEEN #/LPF NONE SEEN [facility] Urine Other Crystals None Seen #/HPF None Seen [facility] Urine RBC 0-2 #/HPF 0-[address] [facility] Urine Squamous Epithelial Cells NONE SEEN #/LPF NONE/RARE [facility] Urine WBC 0-2 #/HPF Abnormal NONE SEEN [facility] NONE SEEN #/LPF NONE/RARE [facility] None Seen #/HPF NONE SEEN [facility] Negative NEG/TRACE [facility] CLEAR CLEAR [facility] LT. YELLOW YELLOW [facility] >=1000 mg/dL Abnormal NEGATIVE [facility] NONE SEEN NONE SEEN [facility] 6.5 5.0-9.[address] [facility] 0-2 #/HPF Abnormal NONE SEEN [facility] <=1.005 Abnormal 1.005-1.[address] [facility] 0.2 EU/dL 0.2-1.[address] [facility] 9.[address] [facility] 27.0 mg/dL High 7.0-18.[address] [facility] 7.2 mg/dL Low 8.5-10.[address] [facility] 95 mmol/L Low 98-[address] [facility] 21.7 mmol/L 21.0-32.[address] [facility] 2.80 mg/dL High 0.70-1.[address] [facility] 28 Low >=[address] [facility] 683 mg/dL High 74-[address] [facility] 4.8 mmol/L 3.5-5.[address] [facility] 129 mmol/L Low 136-[address] [facility] Eosinophils # (Auto) 0.0 10 3/uL 0.0-0.7 [facility] Immature Granulocyte # (Auto) 0.11 10 3/uL High 0.00-0.[address] [facility] Phosphorus Level 2.7 mg/dL 2.6-4.7 [facility] 322.0 pg/mL <=900.[address] [facility] 0.9 mg/dL Low 1.8-2.[address] [facility] 2.7 mg/dL 2.6-4.[address] [facility] 0.0 10 3/uL 0.0-0.[address] [facility] 2.3 g/dL Low 3.4-5.[address] [facility] 143 U/L High 46-[address] [facility] 15 U/L Low 16-[address] [facility] 9 U/L Low 15-[address] [facility] 0.11 10 3/uL High 0.00-0.[address] [facility] 0.9 % High 0.0-0.[address] [facility] 0.2 mg/dL 0.2-1.[address] [facility] 6.1 g/dL Low 6.4-8.[address] [facility] Platelet mean volume Auto (B ld) [Entitic vol]on 12-22-2023 Platelet mean volume (Bld) [Entitic vol] 10.5 fL 9.5-13.[address] [facility] Platelets Auto (Bld) [#/Vol] on 12-22-2023 Platelets (Bld) [#/Vol] 400 10 3/uL 150-[address] [facility] RBC Auto (Bld) [#/Vol]on RBC (Bld) [#/Vol] 3.11 10 6/uL Low 4.70-6.10 [facility] Serum or plasma albumin/glob ulin mass ratioon 12-22-2023 Albumin/Globulin [Mass ratio] 0.6 {ratio} [facility] Serum or plasma anion gap de terminationon 12-22-2023 Anion gap [Moles/Vol] 17.1 mmol/L [facility] Activated partial thrombopla stin time (aPTT) in platelet poor plasma by coagulation aon 12-21-2023 aPTT Coag (PPP) [Time] 26.6 s 22.3-36.2 [facility] Basophils Auto (Bld) [#/Vol] on 12-21-2023 Basophils (Bld) [#/Vol] 0.1 10 3/uL 0.0-0.[address] [facility] Basophils/100 WBC Auto (Bld) on 12-21-2023 Basophils/100 WBC (Bld) 0.8 % 0.2-2.[address] [facility] Eosinophils/100 WBC Auto (Bl d)on 12-21-2023 Eosinophils/100 WBC (Bld) 4.2 % 0.9-7.[address] [facility] Erythrocyte distribution wid th Auto (RBC) [Ratio]on 12-21-2023 Erythrocyte distribution width (RBC) [Ratio] 16.6 % High 11.0-15.[address] [facility] Estimated glomerular filtrat ion rate (GFR) non- Americanon 12-21-2023 GFR/1.73 sq M.predicted among non-blacks MDRD (S/P/Bld) [Vol rate/Area] 23 mL/min/{1.73_m2} Low >=[address] [facility] Globulin Calc (S) [Mass/Vol] on 12-21-2023 Globulin (S) [Mass/Vol] 4.0 g/dL [facility] Hematocrit Auto (Bld) [Volum e fraction]on 12-21-2023 Hematocrit (Bld) [Volume fraction] 28.2 % Low 42.0-54.[address] [facility] Hemoglobin [Mass/volume] in Bloodon 12-21-2023 Hemoglobin (Bld) [Mass/Vol] 8.6 g/dL Low 14.0-18.[address] [facility] INR in Platelet poor plasma by Coagulation assayon 12-21-2023 INR Coag (PPP) [Relative time] 1.05 {INR} [facility] Comment on above: DESIRED INR:2.0-3.0 CONDITIONS NOT LISTED BELOW2.5-3.5 FOR PROSTHETIC HEART VALVE REPLACEMENT2.5-3.5 RECURRENT THROMBOSIS Laboratory - Chemistry and C hemistry - challengeon 12-21-2023 Albumin [Mass/Vol] 2.8 g/dL Low 3.4-5.0 [facility] ALP [Catalytic activity/Vol] 132 U/L High 46-[address] [facility] ALT [Catalytic activity/Vol] 13 U/L Low 16-[address] [facility] AST [Catalytic activity/Vol] 10 U/L Low 15-[address] [facility] Bilirubin [Mass/Vol] 0.3 mg/dL 0.2-1.0 [facility] Calcium [Mass/Vol] 7.8 mg/dL Low 8.5-10.1 [facility] Chloride [Moles/Vol] 99 mmol/L 98-107 [facility] CO2 [Moles/Vol] 29.9 mmol/L 21.0-32.0 [facility] Creatinine [Mass/Vol] 2.79 mg/dL High 0.70-1.30 [facility] GFR/1.73 sq M.predicted MDRD (S/P/Bld) [Vol rate/Area] 29 mL/min/{1.73_m2} Low >=[address] [facility] Glucose [Mass/Vol] 56 mg/dL Low 74-106 [facility] Lactate [Moles/Vol] 1.6 mmol/L 0.4-2.0 [facility] Natriuretic peptide B (Bld) [Mass/Vol] 222.0 pg/mL <=900.[address] [facility] Potassium [Moles/Vol] 3.3 mmol/L Low 3.5-5.1 [facility] Protein [Mass/Vol] 6.8 g/dL 6.4-8.2 [facility] Sodium [Moles/Vol] 138 mmol/L 136-145 [facility] Urea nitrogen [Mass/Vol] 29.0 mg/dL High 7.0-18.[address] [facility] Urea nitrogen/Creatinine [Mass ratio] 10.4 mg/mg [facility] Laboratory - Hematology and Cell countson 12-21-2023 Immature granulocytes/100 WBC (Bld) 1.0 % High 0.0-0.[address] [facility] Leukocytes [#/volume] correc jorge for nucleated erythrocytes in Blood by Automated counon 12-21-2023 WBC corrected for nucl RBC Auto (Bld) [#/Vol] 12.6 10 3/uL High 4.0-11.[address] [facility] Lymphocytes Auto (Bld) [#/Vo l]on 12-21-2023 Lymphocytes (Bld) [#/Vol] 3.4 10 3/uL 1.2-3.[address] [facility] Lymphocytes/100 WBC Auto (Bl d)on 12-21-2023 Lymphocytes/100 WBC (Bld) 26.6 % 20.5-60.[address] [facility] MCH Auto (RBC) [Entitic mass ]on 12-21-2023 MCH (RBC) [Entitic mass] 24.7 pg Low 25.9-34.[address] [facility] MCHC Auto (RBC) [Mass/Vol]on 12-21-2023 MCHC (RBC) [Mass/Vol] 30.5 g/dL 29.9-35.2 [facility] MCV Auto (RBC) [Entitic vol] on 12-21-2023 MCV (RBC) [Entitic vol] 81.0 fL 80.0-94.[address] [facility] Monocytes Auto (Bld) [#/Vol] on 12-21-2023 Monocytes (Bld) [#/Vol] 0.6 10 3/uL 0.3-0.[address] [facility] Monocytes/100 WBC Auto (Bld) on 12-21-2023 Monocytes/100 WBC (Bld) 4.9 % 1.7-12.[address] [facility] Neutrophils Auto (Bld) [#/Vo l]on 12-21-2023 Neutrophils (Bld) [#/Vol] 7.9 10 3/uL High 1.4-6.[address] [facility] Neutrophils/100 WBC Auto (Bl d)on 12-21-2023 Neutrophils/100 WBC (Bld) 62.5 % 43.0-75.[address] [facility] No Panel Informationon 12-20 Troponin I High Sensitivity 5.1 pg/mL 4.0-76.[address] [facility] Comment on above: CUT-OFF POINTS HAVE [...] DIAGNOSTIC AND CLINICAL INFORMATION. 5.1 pg/mL 4.0-76.[address] [facility] Eosinophils # (Auto) 0.5 10 3/uL 0.0-0.7 Fir [facility] Immature Granulocyte # (Auto) 0.13 10 3/uL High 0.00-0.[address] [facility] Venous Blood Partial Pressure CO2 39.8 mm[Hg] Low 40.0-52.[address] [facility] Venous Blood pH 7.448 High 7.330-7.[address] [facility] 222.0 pg/mL <=900.[address] [facility] 1.6 mmol/L 0.4-2.[address] [facility] 39.8 mm[Hg] Low 40.0-52.[address] [facility] 7.448 High 7.330-7.[address] [facility] 2.8 g/dL Low 3.4-5.[address] [facility] 0.5 10 3/uL 0.0-0.[address] [facility] 132 U/L High 46-[address] [facility] 13 U/L Low 16-[address] [facility] 10 U/L Low 15-[address] [facility] 10.[address] [facility] 0.13 10 3/uL High 0.00-0.[address] [facility] 29.0 mg/dL High 7.0-18.[address] [facility] 1.0 % High 0.0-0.[address] [facility] 7.8 mg/dL Low 8.5-10.[address] [facility] 99 mmol/L 98-[address] [facility] 29.9 mmol/L 21.0-32.[address] [facility] 2.79 mg/dL High 0.70-1.[address] [facility] 29 Low >=[address] [facility] 56 mg/dL Low 74-[address] [facility] 3.3 mmol/L Low 3.5-5.[address] [facility] 138 mmol/L 136-[address] [facility] 0.3 mg/dL 0.2-1.[address] [facility] 6.8 g/dL 6.4-8.[address] [facility] No Panel InformationOrdered By: Марина Flores on 12-21-2023 Blood Culture [address] [facility] Blood Culture [address] [facility] Platelet mean volume Auto (B ld) [Entitic vol]on 12-21-2023 Platelet mean volume (Bld) [Entitic vol] 10.2 fL 9.5-13.[address] [facility] Platelets Auto (Bld) [#/Vol] on 12-21-2023 Platelets (Bld) [#/Vol] 502 10 3/uL High 150-[address] [facility] Prothrombin time (PT)on 12-03 PT Coag (PPP) [Time] 11.1 s 9.0-11.6 [facility] RBC Auto (Bld) [#/Vol]on RBC (Bld) [#/Vol] 3.48 10 6/uL Low 4.70-6.10 [facility] Serum or plasma albumin/glob ulin mass ratioon 12-21-2023 Albumin/Globulin [Mass ratio] 0.7 {ratio} [facility] Serum or plasma anion gap de terminationon 12-21-2023 Anion gap [Moles/Vol] 12.4 mmol/L [facility] Guy 12-15-2023 L Specimen: [id number] Received: 12/15/23 Status: COLTON Nath Num: [id number] Spec Type: Surgical Subm Dr: Paula Soto DPM, MS Tissues: A DIGIT AMPUTATION (RT METATARSAL) Procedures: HE/3, Gross/Micro L4, Decalcification Age/ Patient Sex Location Account Attending Physician Myra Pickard SR 58/M LABELL [id number] Paula Soto DPM, MS SPEC NUM: [id number] RECD: 12/15/23 STATUS: COLTON NATH NUM: [id number] SHAKIRA: 12/15/[address]: Paula Soto DPM, MS ENTERED: 12/15/23 [facility] DR: Jericho Carey SPEC TYPE: Surgical DEPT: RAMSEY MARCANO ORDERED: , Gross/Micro L4, Decalcification ORDERED: 3, Gross/Micro L4, Decalcification Pathological Diagnosis Right metatarsal [...] and submitted following decalcification as follows: Specimen: [id number] Received: 12/15/23 Status: COLTON Tayler Num: [id number] Spec Type: Surgical Subm Dr: Paula Soto,LINDSEY, MS Tissues: A DIGIT AMPUTATION (RT METATARSAL) Procedures: , Gross/Micro L4, Decalcification Patient: Myra Pickard SR [id number] (Continued) Specimen: [id number] Received: 12/15/23 (Continued) Gross Description (Continued) Signed (signature on file) Victor Hugo Sotelo MD 12/20/23 1207 Specimen: [id number] Received: 12/15/23 Status: COLTON Nath Num: [id number] Spec Type: Surgical Subm Dr: Paula Soto DPM, MS Tissues: A DIGIT AMPUTATION (RT METATARSAL) Procedures: HE/3, Gross/Micro L4, Decalcification Patient: Myra Pickard SR [id number] (Continued) Specimen: [id number] Received: 12/15/23 (Continued) Gross Description (Continued) A1: Margin #1 A2: Margins #2, #3 A3: Margins #4, #5 TW Microscopic Description Microscopic examinations are performed supporting the above interpretation CPT Codes 55022, 35351 Specimen: [id number] Received: 12/15/23 Status: COLTON Nath Num: [id number] Spec Type: Surgical Subm Dr: Paula Soto DPM, MS Tissues: A DIGIT AMPUTATION (RT METATARSAL) Procedures: HE/3, Gross/Micro L4, Decalcification Patient: Myra Pickard SR [id number] (Continued) Signed (signature on file) Victor Hugo Sotelo MD 12/20/23 1207 Normal [facility] Basophils Auto (Bld) [#/Vol] on 12-10-2023 Basophils (Bld) [#/Vol] 0.1 10 3/uL 0.0-0.[address] [facility] Basophils/100 WBC Auto (Bld) on 12-10-2023 Basophils/100 WBC (Bld) 0.9 % 0.2-2.[address] [facility] Eosinophils/100 WBC Auto (Bl d)on 12-10-2023 Eosinophils/100 WBC (Bld) 2.6 % 0.9-7.[address] [facility] Erythrocyte distribution wid th Auto (RBC) [Ratio]on 12-10-2023 Erythrocyte distribution width (RBC) [Ratio] 17.7 % High 11.0-15.[address] [facility] Estimated glomerular filtrat ion rate (GFR) non- Americanon 12-10-2023 GFR/1.73 sq M.predicted among non-blacks MDRD (S/P/Bld) [Vol rate/Area] 38 mL/min/{1.73_m2} Low >=[address] [facility] Globulin Calc (S) [Mass/Vol] on 12-10-2023 Globulin (S) [Mass/Vol] 3.9 g/dL [facility] Hematocrit Auto (Bld) [Volum e fraction]on 12-10-2023 Hematocrit (Bld) [Volume fraction] 34.2 % Low 42.0-54.[address] [facility] Hemoglobin [Mass/volume] in Bloodon 12-10-2023 Hemoglobin (Bld) [Mass/Vol] 10.5 g/dL Low 14.0-18.[address] [facility] Laboratory - Chemistry and C hemistry - challengeon 12-10-2023 Albumin [Mass/Vol] 2.8 g/dL Low 3.4-5.0 [facility] ALP [Catalytic activity/Vol] 119 U/L High 46-[address] [facility] ALT [Catalytic activity/Vol] 11 U/L Low 16-[address] [facility] AST [Catalytic activity/Vol] 10 U/L Low 15-[address] [facility] Bilirubin [Mass/Vol] 0.4 mg/dL 0.2-1.0 [facility] Calcium [Mass/Vol] 8.4 mg/dL Low 8.5-10.1 [facility] Chloride [Moles/Vol] 101 mmol/L 98-107 [facility] CO2 [Moles/Vol] 27.0 mmol/L 21.0-32.0 [facility] Creatinine [Mass/Vol] 1.83 mg/dL High 0.70-1.30 [facility] GFR/1.73 sq M.predicted MDRD (S/P/Bld) [Vol rate/Area] 46 mL/min/{1.73_m2} Low >=[address] [facility] Glucose [Mass/Vol] 113 mg/dL High 74-106 [facility] Potassium [Moles/Vol] 3.3 mmol/L Low 3.5-5.1 [facility] Protein [Mass/Vol] 6.7 g/dL 6.4-8.2 [facility] Sodium [Moles/Vol] 134 mmol/L Low 136-145 [facility] Urea nitrogen [Mass/Vol] 21.0 mg/dL High 7.0-18.[address] [facility] Urea nitrogen/Creatinine [Mass ratio] 11.5 mg/mg [facility] Laboratory - Hematology and Cell countson 12-10-2023 Immature granulocytes/100 WBC (Bld) 0.3 % 0.0-0.[address] [facility] Leukocytes [#/volume] correc jorge for nucleated erythrocytes in Blood by Automated counon 12-10-2023 WBC corrected for nucl RBC Auto (Bld) [#/Vol] 9.8 10 3/uL 4.0-11.[address] [facility] Lymphocytes Auto (Bld) [#/Vo l]on 12-10-2023 Lymphocytes (Bld) [#/Vol] 1.5 10 3/uL 1.2-3.[address] [facility] Lymphocytes/100 WBC Auto (Bl d)on 12-10-2023 Lymphocytes/100 WBC (Bld) 15.8 % Low 20.5-60.[address] [facility] MCH Auto (RBC) [Entitic mass ]on 12-10-2023 MCH (RBC) [Entitic mass] 25.1 pg Low 25.9-34.[address] [facility] MCHC Auto (RBC) [Mass/Vol]on 12-10-2023 MCHC (RBC) [Mass/Vol] 30.7 g/dL 29.9-35.2 [facility] MCV Auto (RBC) [Entitic vol] on 12-10-2023 MCV (RBC) [Entitic vol] 81.6 fL 80.0-94.[address] [facility] Monocytes Auto (Bld) [#/Vol] on 12-10-2023 Monocytes (Bld) [#/Vol] 1.2 10 3/uL High 0.3-0.[address] [facility] Monocytes/100 WBC Auto (Bld) on 12-10-2023 Monocytes/100 WBC (Bld) 11.9 % 1.7-12.[address] [facility] Neutrophils Auto (Bld) [#/Vo l]on 12-10-2023 Neutrophils (Bld) [#/Vol] 6.7 10 3/uL High 1.4-6.[address] [facility] Neutrophils/100 WBC Auto (Bl d)on 12-10-2023 Neutrophils/100 WBC (Bld) 68.5 % 43.0-75.[address] [facility] No Panel Informationon 12-09 Eosinophils # (Auto) 0.3 10 3/uL 0.0-0.7 [facility] Immature Granulocyte # (Auto) 0.03 10 3/uL 0.00-0.[address] [facility] 2.8 g/dL Low 3.4-5.[address] [facility] 0.3 10 3/uL 0.0-0.[address] [facility] 119 U/L High 46-[address] [facility] 11 U/L Low 16-[address] [facility] 10 U/L Low 15-[address] [facility] 11.[address] [facility] 0.03 10 3/uL 0.00-0.[address] [facility] 21.0 mg/dL High 7.0-18.[address] [facility] 0.3 % 0.0-0.[address] [facility] 8.4 mg/dL Low 8.5-10.[address] [facility] 101 mmol/L 98-[address] [facility] 27.0 mmol/L 21.0-32.[address] [facility] 1.83 mg/dL High 0.70-1.[address] [facility] 46 Low >=[address] [facility] 113 mg/dL High 74-[address] [facility] 3.3 mmol/L Low 3.5-5.[address] [facility] 134 mmol/L Low 136-[address] [facility] 0.4 mg/dL 0.2-1.[address] [facility] 6.7 g/dL 6.4-8.[address] [facility] Platelet mean volume Auto (B ld) [Entitic vol]on 12-10-2023 Platelet mean volume (Bld) [Entitic vol] 10.2 fL 9.5-13.[address] [facility] Platelets Auto (Bld) [#/Vol] on 12-10-2023 Platelets (Bld) [#/Vol] 240 10 3/uL 150-[address] [facility] RBC Auto (Bld) [#/Vol]on RBC (Bld) [#/Vol] 4.19 10 6/uL Low 4.70-6.10 [facility] Serum or plasma albumin/glob ulin mass ratioon 12-10-2023 Albumin/Globulin [Mass ratio] 0.7 {ratio} [facility] Serum or plasma anion gap de terminationon 12-10-2023 Anion gap [Moles/Vol] 9.3 mmol/L [facility] Basophils Auto (Bld) [#/Vol] on 12-09-2023 Basophils (Bld) [#/Vol] 0.1 10 3/uL 0.0-0.[address] [facility] Basophils/100 WBC Auto (Bld) on 12-09-2023 Basophils/100 WBC (Bld) 1.0 % 0.2-2.[address] [facility] Eosinophils/100 WBC Auto (Bl d)on 12-09-2023 Eosinophils/100 WBC (Bld) 1.6 % 0.9-7.[address] [facility] Erythrocyte distribution wid th Auto (RBC) [Ratio]on 12-09-2023 Erythrocyte distribution width (RBC) [Ratio] 17.7 % High 11.0-15.[address] [facility] Estimated glomerular filtrat ion rate (GFR) non- Americanon 12-09-2023 GFR/1.73 sq M.predicted among non-blacks MDRD (S/P/Bld) [Vol rate/Area] 31 mL/min/{1.73_m2} Low >=[address] [facility] Fibrin D-dimer [Presence] in Platelet poor plasma by Latex agglutinationon 12-09-2023 Fibrin D-dimer LA Ql (PPP) 3.76 mg/L FEU High <=0.[address] [facility] Comment on above: RESULTS CALLED TO [...] Globulin (S) [Mass/Vol] 4.6 g/dL [facility] Hematocrit Auto (Bld) [Volum e fraction]on 12-09-2023 Hematocrit (Bld) [Volume fraction] 39.2 % Low 42.0-54.[address] [facility] Hemoglobin [Mass/volume] in Bloodon 12-09-2023 Hemoglobin (Bld) [Mass/Vol] 12.2 g/dL Low 14.0-18.[address] [facility] Laboratory - Chemistry and C hemistry - challengeon 12-09-2023 Lactate [Moles/Vol] 2.9 mmol/L High 0.4-2.0 [facility] Comment on above: RESULTS CALLED TO RM SHARPE RN Bilirubin Ql (U) Negative NEGATIVE [facility] Glucose (U) [Mass/Vol] 500 mg/dL Abnormal NEGATIVE [facility] Ql (U) Negative NEGATIVE [facility] pH (U) 6.5 [pH] 5.0-9.[address] [facility] Specific gravity (U) [Rel density] 1.020 1.005-1.[address] [facility] Urobilinogen Qn (U) 0.2 {Brendan'U}/dL 0.2-1.[address] [facility] Albumin [Mass/Vol] 3.5 g/dL 3.4-5.0 [facility] ALP [Catalytic activity/Vol] 141 U/L High 46-[address] [facility] [address] [facility] ALT [Catalytic activity/Vol] 13 U/L Low 16-[address] [facility] AST [Catalytic activity/Vol] 8 U/L Low 15-[address] [facility] Bilirubin [Mass/Vol] 0.7 mg/dL 0.2-1.0 [facility] Calcium [Mass/Vol] 9.6 mg/dL 8.5-10.1 [facility] Chloride [Moles/Vol] 99 mmol/L 98-107 [facility] CO2 [Moles/Vol] 21.7 mmol/L 21.0-32.0 [facility] Creatinine [Mass/Vol] 2.17 mg/dL High 0.70-1.30 [facility] GFR/1.73 sq M.predicted MDRD (S/P/Bld) [Vol rate/Area] 38 mL/min/{1.73_m2} Low >=[address] [facility] Glucose [Mass/Vol] 191 mg/dL High 74-106 [facility] Magnesium [Mass/Vol] 1.6 mg/dL Low 1.8-2.4 [facility] Potassium [Moles/Vol] 3.8 mmol/L 3.5-5.1 [facility] Protein [Mass/Vol] 8.1 g/dL 6.4-8.2 [facility] Sodium [Moles/Vol] 135 mmol/L Low 136-145 [facility] Urea nitrogen [Mass/Vol] 20.0 mg/dL High 7.0-18.[address] [facility] Urea nitrogen/Creatinine [Mass ratio] 9.2 mg/mg [facility] Laboratory - Hematology and Cell countson 12-09-2023 Immature granulocytes/100 WBC (Bld) 0.3 % 0.0-0.[address] [facility] Laboratory - Microbiology an d Antimicrobial susceptibilityon 12-09-2023 SARS-CoV-2 (COVID-19) RNA NELLY+probe Ql (Unsp spec) Negative NEGATIVE [facility] Comment on above: This test has [...] 12-09-2023 Appearance (U) CLEAR CLEAR [facility] Color (U) YELLOW YELLOW [facility] Laboratory - Urinalysison Leukocyte esterase Test strip Ql (U) Negative NEGATIVE [facility] Nitrite Ql (U) Negative NEGATIVE [facility] Protein Ql (U) Negative NEG/TRACE [facility] Leukocytes [#/volume] correc jorge for nucleated erythrocytes in Blood by Automated counon 12-09-2023 WBC corrected for nucl RBC Auto (Bld) [#/Vol] 9.3 10 3/uL 4.0-11.[address] [facility] Lymphocytes Auto (Bld) [#/Vo l]on 12-09-2023 Lymphocytes (Bld) [#/Vol] 1.5 10 3/uL 1.2-3.[address] [facility] Lymphocytes/100 WBC Auto (Bl d)on 12-09-2023 Lymphocytes/100 WBC (Bld) 15.7 % Low 20.5-60.[address] [facility] MCH Auto (RBC) [Entitic mass ]on 12-09-2023 MCH (RBC) [Entitic mass] 25.6 pg Low 25.9-34.[address] [facility] MCHC Auto (RBC) [Mass/Vol]on 12-09-2023 MCHC (RBC) [Mass/Vol] 31.1 g/dL 29.9-35.2 [facility] MCV Auto (RBC) [Entitic vol] on 12-09-2023 MCV (RBC) [Entitic vol] 82.4 fL 80.0-94.[address] [facility] Monocytes Auto (Bld) [#/Vol] on 12-09-2023 Monocytes (Bld) [#/Vol] 0.9 10 3/uL High 0.3-0.[address] [facility] Monocytes/100 WBC Auto (Bld) on 12-09-2023 Monocytes/100 WBC (Bld) 9.1 % 1.7-12.[address] [facility] Neutrophils Auto (Bld) [#/Vo l]on 12-09-2023 Neutrophils (Bld) [#/Vol] 6.7 10 3/uL High 1.4-6.[address] [facility] Neutrophils/100 WBC Auto (Bl d)on 12-09-2023 Neutrophils/100 WBC (Bld) 72.3 % 43.0-75.[address] [facility] No Panel Informationon 12-08 2.9 mmol/L High 0.4-2.[address] [facility] Urine Microscopic Review NO [facility] Urine Occult Blood Negative NEGATIVE [facility] Negative NEG/TRACE [facility] NO [facility] CLEAR CLEAR [facility] YELLOW YELLOW [facility] 500 mg/dL Abnormal NEGATIVE [facility] 6.5 5.0-9.[address] [facility] 1.020 1.005-1.[address] [facility] 0.2 EU/dL 0.2-1.[address] [facility] Eosinophils # (Auto) 0.2 10 3/uL 0.0-0.7 Fir [facility] Immature Granulocyte # (Auto) 0.03 10 3/uL 0.00-0.[address] [facility] Troponin I High Sensitivity 8.7 pg/mL 4.0-76.[address] [facility] Comment on above: CUT-OFF POINTS HAVE [...] DIAGNOSTIC AND CLINICAL INFORMATION. 8.7 pg/mL 4.0-76.[address] [facility] 1.6 mg/dL Low 1.8-2.[address] [facility] 3.5 g/dL 3.4-5.[address] [facility] 0.2 10 3/uL 0.0-0.[address] [facility] 141 U/L High 46-[address] [facility] 13 U/L Low 16-[address] [facility] 8 U/L Low 15-[address] [facility] 9.[address] [facility] 0.03 10 3/uL 0.00-0.[address] [facility] 20.0 mg/dL High 7.0-18.[address] [facility] 0.3 % 0.0-0.[address] [facility] 9.6 mg/dL 8.5-10.[address] [facility] 99 mmol/L 98-[address] [facility] 21.7 mmol/L 21.0-32.[address] [facility] 2.17 mg/dL High 0.70-1.[address] [facility] 38 Low >=[address] [facility] 191 mg/dL High 74-[address] [facility] 3.8 mmol/L 3.5-5.[address] [facility] 135 mmol/L Low 136-[address] [facility] 0.7 mg/dL 0.2-1.[address] [facility] 8.1 g/dL 6.4-8.[address] [facility] Platelet mean volume Auto (B ld) [Entitic vol]on 12-09-2023 Platelet mean volume (Bld) [Entitic vol] 10.7 fL 9.5-13.[address] [facility] Platelets Auto (Bld) [#/Vol] on 12-09-2023 Platelets (Bld) [#/Vol] 294 10 3/uL 150-[address] [facility] RBC Auto (Bld) [#/Vol]on RBC (Bld) [#/Vol] 4.76 10 6/uL 4.70-6.10 [facility] Serum or plasma albumin/glob ulin mass ratioon 12-09-2023 Albumin/Globulin [Mass ratio] 0.8 {ratio} [facility] Serum or plasma anion gap de terminationon 12-09-2023 Anion gap [Moles/Vol] 18.1 mmol/L [facility] Outside Operativeon 11-28-19 24 Outside Operative [id number]#1.00TIFF Normal [facility] Physician Orderon 11-28-2023 Physician Order [id number]#1.00TIFF Normal [facility] Basophils Auto (Bld) [#/Vol] on 11-26-2023 Basophils (Bld) [#/Vol] 0.1 10 3/uL 0.0-0.[address] [facility] Basophils/100 WBC Auto (Bld) on 11-26-2023 Basophils/100 WBC (Bld) 1.1 % 0.2-2.[address] [facility] Eosinophils/100 WBC Auto (Bl d)on 11-26-2023 Eosinophils/100 WBC (Bld) 3.5 % 0.9-7.[address] [facility] Erythrocyte distribution wid th Auto (RBC) [Ratio]on 11-26-2023 Erythrocyte distribution width (RBC) [Ratio] 20.0 % High 11.0-15.[address] [facility] Estimated glomerular filtrat ion rate (GFR) non- Americanon 11-26-2023 GFR/1.73 sq M.predicted among non-blacks MDRD (S/P/Bld) [Vol rate/Area] 41 mL/min/{1.73_m2} Low >=[address] [facility] Globulin Calc (S) [Mass/Vol] on 11-26-2023 Globulin (S) [Mass/Vol] 4.2 g/dL [facility] Hematocrit Auto (Bld) [Volum e fraction]on 11-26-2023 Hematocrit (Bld) [Volume fraction] 33.1 % Low 42.0-54.[address] [facility] Hemoglobin [Mass/volume] in Bloodon 11-26-2023 Hemoglobin (Bld) [Mass/Vol] 9.8 g/dL Low 14.0-18.[address] [facility] Laboratory - Chemistry and C hemistry - challengeon 11-26-2023 Albumin [Mass/Vol] 3.2 g/dL Low 3.4-5.0 [facility] ALP [Catalytic activity/Vol] 143 U/L High 46-[address] [facility] ALT [Catalytic activity/Vol] 16 U/L 16-[address] [facility] AST [Catalytic activity/Vol] 14 U/L Low 15-[address] [facility] Bilirubin [Mass/Vol] 0.5 mg/dL 0.2-1.0 [facility] Calcium [Mass/Vol] 9.1 mg/dL 8.5-10.1 [facility] Chloride [Moles/Vol] 101 mmol/L 98-107 [facility] CO2 [Moles/Vol] 24.2 mmol/L 21.0-32.0 [facility] Creatinine [Mass/Vol] 1.72 mg/dL High 0.70-1.30 [facility] GFR/1.73 sq M.predicted MDRD (S/P/Bld) [Vol rate/Area] 50 mL/min/{1.73_m2} Low >=[address] [facility] Glucose [Mass/Vol] 132 mg/dL High 74-106 [facility] Lactate [Moles/Vol] 3.6 mmol/L High 0.4-2.0 [facility] Comment on above: RESULTS CALLED TO DR CROOK/YASMIN Potassium [Moles/Vol] 3.7 mmol/L 3.5-5.1 [facility] Protein [Mass/Vol] 7.4 g/dL 6.4-8.2 [facility] Sodium [Moles/Vol] 138 mmol/L 136-145 [facility] Urea nitrogen [Mass/Vol] 26.0 mg/dL High 7.0-18.[address] [facility] Urea nitrogen/Creatinine [Mass ratio] 15.1 mg/mg [facility] Laboratory - Hematology and Cell countson 11-26-2023 ESR (Bld) [Velocity] 96 mm/h High <=20 [facility] Immature granulocytes/100 WBC (Bld) 0.4 % 0.0-0.[address] [facility] Leukocytes [#/volume] correc jorge for nucleated erythrocytes in Blood by Automated counon 11-26-2023 WBC corrected for nucl RBC Auto (Bld) [#/Vol] 9.1 10 3/uL 4.0-11.[address] [facility] Lymphocytes Auto (Bld) [#/Vo l]on 11-26-2023 Lymphocytes (Bld) [#/Vol] 2.1 10 3/uL 1.2-3.[address] [facility] Lymphocytes/100 WBC Auto (Bl d)on 11-26-2023 Lymphocytes/100 WBC (Bld) 23.4 % 20.5-60.[address] [facility] MCH Auto (RBC) [Entitic mass ]on 11-26-2023 MCH (RBC) [Entitic mass] 24.8 pg Low 25.9-34.[address] [facility] MCHC Auto (RBC) [Mass/Vol]on 11-26-2023 MCHC (RBC) [Mass/Vol] 29.6 g/dL Low 29.9-35.2 [facility] MCV Auto (RBC) [Entitic vol] on 11-26-2023 MCV (RBC) [Entitic vol] 83.8 fL 80.0-94.[address] [facility] Monocytes Auto (Bld) [#/Vol] on 11-26-2023 Monocytes (Bld) [#/Vol] 0.8 10 3/uL 0.3-0.[address] [facility] Monocytes/100 WBC Auto (Bld) on 11-26-2023 Monocytes/100 WBC (Bld) 8.5 % 1.7-12.[address] [facility] Neutrophils Auto (Bld) [#/Vo l]on 11-26-2023 Neutrophils (Bld) [#/Vol] 5.7 10 3/uL 1.4-6.[address] [facility] Neutrophils/100 WBC Auto (Bl d)on 11-26-2023 Neutrophils/100 WBC (Bld) 63.1 % 43.0-75.[address] [facility] No Panel InformationOrdered By: HERNAN CROOK on 11-26-2023 Blood Culture [address] [facility] Blood Culture [address] [facility] No Panel Informationon 11-25 C-Reactive Protein, Quantitative <0.50 mg/dL <=0.[address] [facility] Eosinophils # (Auto) 0.3 10 3/uL 0.0-0.7 [facility] Immature Granulocyte # (Auto) 0.04 10 3/uL High 0.00-0.[address] [facility] Platelet mean volume Auto (B ld) [Entitic vol]on 11-26-2023 Platelet mean volume (Bld) [Entitic vol] 10.4 fL 9.5-13.[address] [facility] Platelets Auto (Bld) [#/Vol] on 11-26-2023 Platelets (Bld) [#/Vol] 371 10 3/uL 150-[address] [facility] RBC Auto (Bld) [#/Vol]on RBC (Bld) [#/Vol] 3.95 10 6/uL Low 4.70-6.10 [facility] Serum or plasma albumin/glob ulin mass ratioon 11-26-2023 Albumin/Globulin [Mass ratio] 0.8 {ratio} [facility] Serum or plasma anion gap de terminationon 11-26-2023 Anion gap [Moles/Vol] 16.5 mmol/L [facility] Progress Note-Physicianon Progress Note-Physician [id number]#1.00TIFF Normal [facility] Basophils Auto (Bld) [#/Vol] on 11-15-2023 Basophils (Bld) [#/Vol] 0.1 10 3/uL 0.0-0.[address] [facility] Basophils/100 WBC Auto (Bld) on 11-15-2023 Basophils/100 WBC (Bld) 0.8 % 0.2-2.[address] [facility] Eosinophils/100 WBC Auto (Bl d)on 11-15-2023 Eosinophils/100 WBC (Bld) 5.9 % 0.9-7.[address] [facility] Erythrocyte distribution wid th Auto (RBC) [Ratio]on 11-15-2023 Erythrocyte distribution width (RBC) [Ratio] 20.6 % High 11.0-15.[address] [facility] Estimated glomerular filtrat ion rate (GFR) non- Americanon 11-15-2023 GFR/1.73 sq M.predicted among non-blacks MDRD (S/P/Bld) [Vol rate/Area] 44 mL/min/{1.73_m2} Low >=[address] [facility] Globulin Calc (S) [Mass/Vol] on 11-15-2023 Globulin (S) [Mass/Vol] 4.7 g/dL [facility] Hematocrit Auto (Bld) [Volum e fraction]on 11-15-2023 Hematocrit (Bld) [Volume fraction] 27.6 % Low 42.0-54.[address] [facility] Hemoglobin [Mass/volume] in Bloodon 11-15-2023 Hemoglobin (Bld) [Mass/Vol] 8.5 g/dL Low 14.0-18.[address] [facility] Laboratory - Chemistry and C hemistry - challengeon 11-15-2023 Albumin [Mass/Vol] 2.4 g/dL Low 3.4-5.0 [facility] ALP [Catalytic activity/Vol] 194 U/L High 46-[address] [facility] ALT [Catalytic activity/Vol] 22 U/L 16-[address] [facility] AST [Catalytic activity/Vol] 25 U/L 15-[address] [facility] Bilirubin [Mass/Vol] 0.9 mg/dL 0.2-1.0 [facility] Calcium [Mass/Vol] 8.9 mg/dL 8.5-10.1 [facility] Chloride [Moles/Vol] 97 mmol/L Low 98-107 [facility] CO2 [Moles/Vol] 26.6 mmol/L 21.0-32.0 [facility] Creatinine [Mass/Vol] 1.63 mg/dL High 0.70-1.30 [facility] GFR/1.73 sq M.predicted MDRD (S/P/Bld) [Vol rate/Area] 53 mL/min/{1.73_m2} Low >=[address] [facility] Glucose [Mass/Vol] 226 mg/dL High 74-106 [facility] Lactate [Moles/Vol] 1.4 mmol/L 0.4-2.0 [facility] Potassium [Moles/Vol] 4.1 mmol/L 3.5-5.1 [facility] Protein [Mass/Vol] 7.1 g/dL 6.4-8.2 [facility] Sodium [Moles/Vol] 135 mmol/L Low 136-145 [facility] Urea nitrogen [Mass/Vol] 24.0 mg/dL High 7.0-18.[address] [facility] Urea nitrogen/Creatinine [Mass ratio] 14.7 mg/mg [facility] Laboratory - Hematology and Cell countson 11-15-2023 Immature granulocytes/100 WBC (Bld) 0.6 % High 0.0-0.[address] [facility] Leukocytes [#/volume] correc jorge for nucleated erythrocytes in Blood by Automated counon 11-15-2023 WBC corrected for nucl RBC Auto (Bld) [#/Vol] 9.5 10 3/uL 4.0-11.[address] [facility] Lymphocytes Auto (Bld) [#/Vo l]on 11-15-2023 Lymphocytes (Bld) [#/Vol] 1.3 10 3/uL 1.2-3.[address] [facility] Lymphocytes/100 WBC Auto (Bl d)on 11-15-2023 Lymphocytes/100 WBC (Bld) 14.1 % Low 20.5-60.[address] [facility] MCH Auto (RBC) [Entitic mass ]on 11-15-2023 MCH (RBC) [Entitic mass] 24.9 pg Low 25.9-34.[address] [facility] MCHC Auto (RBC) [Mass/Vol]on 11-15-2023 MCHC (RBC) [Mass/Vol] 30.8 g/dL 29.9-35.2 [facility] MCV Auto (RBC) [Entitic vol] on 11-15-2023 MCV (RBC) [Entitic vol] 80.9 fL 80.0-94.[address] [facility] Monocytes Auto (Bld) [#/Vol] on 11-15-2023 Monocytes (Bld) [#/Vol] 1.1 10 3/uL High 0.3-0.[address] [facility] Monocytes/100 WBC Auto (Bld) on 11-15-2023 Monocytes/100 WBC (Bld) 11.9 % 1.7-12.[address] [facility] Neutrophils Auto (Bld) [#/Vo l]on 11-15-2023 Neutrophils (Bld) [#/Vol] 6.4 10 3/uL 1.4-6.[address] [facility] Neutrophils/100 WBC Auto (Bl d)on 11-15-2023 Neutrophils/100 WBC (Bld) 66.7 % 43.0-75.[address] [facility] No Panel InformationOrdered By: Fely Marker on 11-15-2023 Blood Culture [address] [facility] Blood Culture [address] [facility] No Panel Informationon 11-14 Eosinophils # (Auto) 0.6 10 3/uL 0.0-0.7 [facility] Immature Granulocyte # (Auto) 0.06 10 3/uL High 0.00-0.[address] [facility] Platelet mean volume Auto (B ld) [Entitic vol]on 11-15-2023 Platelet mean volume (Bld) [Entitic vol] 10.8 fL 9.5-13.[address] [facility] Platelets Auto (Bld) [#/Vol] on 11-15-2023 Platelets (Bld) [#/Vol] 338 10 3/uL 150-[address] [facility] RBC Auto (Bld) [#/Vol]on RBC (Bld) [#/Vol] 3.41 10 6/uL Low 4.70-6.10 [facility] Serum or plasma albumin/glob ulin mass ratioon 11-15-2023 Albumin/Globulin [Mass ratio] 0.5 {ratio} [facility] Serum or plasma anion gap de terminationon 11-15-2023 Anion gap [Moles/Vol] 15.5 mmol/L [facility] BASIC METABOLIC PANLon 11-13 Anion gap [Moles/Vol] 10 mmol/L Normal 5-15 [facility] Comment on above: Performed By: #### C ALLY [facility], , 2776-06 ####[facility] ([id number])[address], [address] [place] [address] Calcium [Mass/Vol] 8.8 mg/dL Normal 8.5-10.5 [facility] Comment on above: Performed By: #### KENDALL AHUJA, , 2776-06 ####[facility] ([id number])[address] [address] Chloride [Moles/Vol] 99 mmol/L Normal 98-109 [facility] Comment on above: Performed By: #### Snehal CANALES, BMP, , 2776-06 ####[facility] ([id number])[address], [address] [place] [address] CO2 [Moles/Vol] 26 mmol/L Normal 22-32 [facility] Comment on above: Performed By: #### KENDALL AHUJA, , 2776-06 ####[facility] ([id number])[address] [address] [place] [address] Creatinine [Mass/Vol] 1.61 mg/dL High 0.60-1.30 [facility] Comment on above: Result Comment: METH OD TRACEABLE TO IDMS STANDARD Performed By: #### C KENDALL CANALES, , 2776-06 ####[facility] ([id number])[address] [address] [place] [address] GFR/1.73 sq M.predicted among non-blacks MDRD (S/P/Bld) [Vol rate/Area] 49 mL/min/{1.73_m2} Low >59 [facility] Comment on above: Result Comment: Reported eGFR is based on the CKD-EPI 2020 equation that does not use a race coefficient. Performed By: #### KENDALL AHUJA, , 2776-06 ####[facility] ([id number])[address] [address], [place] [address] Glucose [Mass/Vol] 184 mg/dL High 65-99 [facility] Comment on above: Performed By: #### KENDALL AHUJA, , 2776-06 ####[facility] ([id number])[address] [address] [address] Potassium [Moles/Vol] 4.0 mmol/L Normal 3.5-5.0 [facility] Comment on above: Performed By: #### KENDALL AHUJA, , 2776-06 ####[facility] ([id number])[address] [address] [address] Sodium [Moles/Vol] 135 mmol/L Normal 134-146 [facility] Comment on above: Performed By: #### KENDALL AHUJA, , 2776-06 ####[facility] ([id number])[address] [address] [address] Urea nitrogen [Mass/Vol] 23 mg/dL Normal 5-23 [facility] Comment on above: Performed By: #### C ALLY, BMP, , 2776-06 ####[facility] ([id number])[address], [address], [place] [address] COMPLETE BLOOD COUNTon 11-13 Erythrocyte distribution width (RBC) [Ratio] 22.8 % High 11.5-15.0 [facility] Comment on above: Performed By: #### C ALLY, BMP, , 2776-06 ####[facility] ([id number])[address], [address], [place] [address] Hematocrit (Bld) [Volume fraction] 25.1 % Low 39-49 [facility] Comment on above: Performed By: #### Snehal CANALES, BMP, , 2776-06 ####[facility] ([id number])[address], [address], [place] [address] Hemoglobin (Bld) [Mass/Vol] 8.1 g/dL Low 13.0-17.0 [facility] Comment on above: Performed By: #### Snehal CANALES, BMP, , 2776-06 ####[facility] ([id number])[address] [address], [place] [address] MCH (RBC) [Entitic mass] 25.1 pg Low 27-34 [facility] Comment on above: Performed By: #### C ALLY, BMP, , 2776-06 ####[facility] ([id number])[address], [address], [place] [address] MCHC (RBC) [Mass/Vol] 32.4 g/dL Normal 32-36 [facility] Comment on above: Performed By: #### C ALLY, BMP, , 2776-06 ####[facility] ([id number])[address] [address] [place] [address] MCV (RBC) [Entitic vol] 77 fL Low 80-100 [facility] Comment on above: Performed By: #### Snehal CANALES [facility], , 2776-06 ####[facility] ([id number])[address] [address] Platelet mean volume (Bld) [Entitic vol] 8.8 fL Normal 7-12 [facility] Comment on above: Performed By: #### Snehal CANALES [facility], , 2776-06 ####[facility] ([id number])[address] [address] Platelets (Bld) [#/Vol] 232 10*3/uL Normal 150-450 [facility] Comment on above: Performed By: #### Snehal CANALES [facility], , 2776-06 ####[facility] ([id number])[address] [address] RBC COUNT 3.25 X10E12/L Low 4.10-5.70 [facility] Comment on above: Performed By: #### KENDALL AHUJA, , 2776-06 ####[facility] ([id number])[address] [address] WBC (Bld) [#/Vol] 8.4 10*3/uL Normal 4.0-11.0 [facility] Comment on above: Performed By: #### KENDALL AHUJA, , 2776-06 ####[facility] ([id number])[address] [address] Glucose Glucometer (BldC) [M ass/Vol]on 11-14-2023 Glucose [Mass/Vol] 173 mg/dL High 65-99 [facility] Glucose [Mass/Vol] 279 mg/dL High 65-99 [facility] Glucose [Mass/Vol] 249 mg/dL High 65-99 [facility] MAGNESIUMon 11-14-2023 Magnesium [Mass/Vol] 2.1 mg/dL Normal 1.8-2.6 [facility] Comment on above: Performed By: #### 1 9123-9 ####[facility] ([id number])[address], [place] [address] Magnesium [Mass/Vol] mg/dL Critically low 1.8-2.6 [facility] Comment on above: Performed By: #### 1 9123-9 ####[facility] ([id number])[address], [place] [address] Magnesium [Mass/Vol] 1.7 mg/dL Low 1.8-2.6 [facility] Comment on above: Performed By: #### C KENDALL CANALES, , 1 ####[facility] ([id number])[address], [place] [address] PHOSPHORUSon 11-14-2023 Phosphate [Mass/Vol] 3.6 mg/dL Normal 2.4-4.9 [facility] Comment on above: Performed By: #### C KENDALL CANALES, , 2776-1 ####[facility] ([id number])[address], [address], [place] [address] BASIC METABOLIC PANLon 11-12 Anion gap [Moles/Vol] 10 mmol/L Normal 5-15 [facility] Comment on above: Performed By: #### C KENDALL CANALES, , 2776-06 ####[facility] ([id number])[address], [address], [place] [address] Calcium [Mass/Vol] 8.9 mg/dL Normal 8.5-10.5 [facility] Comment on above: Performed By: #### C ALLY, BMP, , 2776-06 ####[facility] ([id number])[address], [address], [place] [address] Chloride [Moles/Vol] 98 mmol/L Normal 98-109 [facility] Comment on above: Performed By: #### C ALLY, BMP, , 2776-06 ####[facility] ([id number])[address], [address], [place] [address] CO2 [Moles/Vol] 27 mmol/L Normal 22-32 [facility] Comment on above: Performed By: #### C ALLY, KENDALL, , 2776-06 ####[facility] ([id number])[address], [address], [place] [address] Creatinine [Mass/Vol] 1.47 mg/dL High 0.60-1.30 [facility] Comment on above: Result Comment: METH OD TRACEABLE TO IDMS STANDARD Performed By: #### C ALLY, KENDALL, , 2776-06 ####[facility] ([id number])[address] [address] GFR/1.73 sq M.predicted among non-blacks MDRD (S/P/Bld) [Vol rate/Area] 55 mL/min/{1.73_m2} Low >59 [facility] Comment on above: Result Comment: Reported eGFR is based on the CKD-EPI 2020 equation that does not use a race coefficient. Performed By: #### C BC, BMP, , 2776-06 ####[facility] ([id number])[address] [address], [place] [address] Glucose [Mass/Vol] 164 mg/dL High 65-99 [facility] Comment on above: Performed By: #### Snehal BC, BMP, , 2776-06 ####[facility] ([id number])[address], [address], [place] [address] Potassium [Moles/Vol] 3.8 mmol/L Normal 3.5-5.0 [facility] Comment on above: Performed By: #### C ALLY, BMP, , 2776-06 ####[facility] ([id number])[address], [address], [place] [address] Sodium [Moles/Vol] 135 mmol/L Normal 134-146 [facility] Comment on above: Performed By: #### C ALLY, BMP, , 2776-06 ####[facility] ([id number])[address] [address], [place] [address] Urea nitrogen [Mass/Vol] 26 mg/dL High 5-23 [facility] Comment on above: Performed By: #### Snehal CANALES, BMP, , 2776-06 ####[facility] ([id number])[address] [address], [place] [address] COMPLETE BLOOD COUNTon 11-12 Erythrocyte distribution width (RBC) [Ratio] 23.2 % High 11.5-15.0 [facility] Comment on above: Performed By: #### C KENDALL CANALES, , 2776-06 ####[facility] ([id number])[address] [address], [place] [address] Hematocrit (Bld) [Volume fraction] 24.7 % Low 39-49 [facility] Comment on above: Performed By: #### C ALLY, BMP, , 2776-06 ####[facility] ([id number])[address] [address], [place] [address] Hemoglobin (Bld) [Mass/Vol] 8.2 g/dL Low 13.0-17.0 [facility] Comment on above: Performed By: #### C ALLY, BMP, , 2776-06 ####[facility] ([id number])[address], [address] [place] [address] MCH (RBC) [Entitic mass] 25.7 pg Low 27-34 [facility] Comment on above: Performed By: #### KENDALL AHUJA, , 2776-06 ####[facility] ([id number])[address], [address] [place] [address] MCHC (RBC) [Mass/Vol] 33.4 g/dL Normal 32-36 [facility] Comment on above: Performed By: #### KENDALL AHUJA, , 2776-06 ####[facility] ([id number])[address], [address] [place] [address] MCV (RBC) [Entitic vol] 77 fL Low 80-100 [facility] Comment on above: Performed By: #### Snehal CANALES [facility], , 2776-06 ####[facility] ([id number])[address], [address] [place] [address] Platelet mean volume (Bld) [Entitic vol] 8.8 fL Normal 7-12 [facility] Comment on above: Performed By: #### KENDALL AHUJA, , 2776-06 ####[facility] ([id number])[address], [address] [place] [address] Platelets (Bld) [#/Vol] 207 10*3/uL Normal 150-450 [facility] Comment on above: Performed By: #### KENDALL AHUJA, , 2776-06 ####[facility] ([id number])[address], [address] [place] [address] RBC COUNT 3.21 X10E12/L Low 4.10-5.70 [facility] Comment on above: Performed By: #### C KENDALL CANALES, , 2776-06 ####[facility] ([id number])[address], [address] [place] [address] WBC (Bld) [#/Vol] 8.1 10*3/uL Normal 4.0-11.0 [facility] Comment on above: Performed By: #### KENDALL AHUJA, , 2776-06 ####[facility] ([id number])[address], [address] [place] [address] Glucose Glucometer (BldC) [M ass/Vol]on 11-13-2023 Glucose [Mass/Vol] 230 mg/dL High 65-99 [facility] Glucose [Mass/Vol] 225 mg/dL High 65-99 [facility] Glucose [Mass/Vol] 331 mg/dL High 65-99 [facility] Glucose [Mass/Vol] 190 mg/dL High 65-99 [facility] MAGNESIUMon 11-13-2023 Magnesium [Mass/Vol] 2.1 mg/dL Normal 1.8-2.6 [facility] Comment on above: Performed By: #### KENDALL AHUJA, , 2776-06 ####[facility] ([id number])[address] [address] [place] [address] PHOSPHORUSon 11-13-2023 Phosphate [Mass/Vol] 3.8 mg/dL Normal 2.4-4.9 [facility] Comment on above: Performed By: #### KENDALL AHUJA, , 2776-06 ####[facility] ([id number])[address], [address] [place] [address] BASIC METABOLIC PANLon 11-11 Anion gap [Moles/Vol] 11 mmol/L Normal 5-15 [facility] Comment on above: Performed By: #### Snehal CANALES BMP #### [facility] ([id number]) [address], [address] [place] [address] Calcium [Mass/Vol] 9.0 mg/dL Normal 8.5-10.5 [facility] Comment on above: Performed By: #### C ALLY, BMP #### [facility] ([id number]) [address], [address] [place] [address] Chloride [Moles/Vol] 98 mmol/L Normal 98-109 [facility] Comment on above: Performed By: #### C ALLY, BMP #### [facility] ([id number]) [address], [address] [place] [address] CO2 [Moles/Vol] 25 mmol/L Normal 22-32 [facility] Comment on above: Performed By: #### Snehal CANALES, BMP #### [facility] ([id number]) [address], [address] [place] [address] Creatinine [Mass/Vol] 1.40 mg/dL High 0.60-1.30 [facility] Comment on above: Result Comment: METH OD TRACEABLE TO IDMS STANDARD Performed By: #### C ALLY, BMP #### [facility] ([id number]) [address], [address] [place] [address] GFR/1.73 sq M.predicted among non-blacks MDRD (S/P/Bld) [Vol rate/Area] 58 mL/min/{1.73_m2} Low >59 [facility] Comment on above: Result Comment: Reported eGFR is based on the CKD-EPI 2020 equation that does not use a race coefficient. Performed By: #### C ALLY, BMP #### [facility] ([id number]) [address], [address] [place] [address] Glucose [Mass/Vol] 194 mg/dL High 65-99 [facility] Comment on above: Performed By: #### Snehal CANALES, BMP #### [facility] ([id number]) [address], [address] [place] [address] Potassium [Moles/Vol] 4.0 mmol/L Normal 3.5-5.0 [facility] Comment on above: Performed By: #### C ALLY, BMP #### [facility] ([id number]) [address], [address] [place] [address] Sodium [Moles/Vol] 134 mmol/L Normal 134-146 [facility] Comment on above: Performed By: #### Snehal CANALES, BMP #### [facility] ([id number]) [address], [address] [place] [address] Urea nitrogen [Mass/Vol] 23 mg/dL Normal 5-23 [facility] Comment on above: Performed By: #### Snehal CANALES, BMP #### [facility] ([id number]) [address], [address] [place] [address] COMPLETE BLOOD COUNTon 11-11 Erythrocyte distribution width (RBC) [Ratio] 24.1 % High 11.5-15.0 [facility] Comment on above: Performed By: #### Snehal CANALES, BMP #### [facility] ([id number]) [address], [address] [place] [address] Hematocrit (Bld) [Volume fraction] 25.8 % Low 39-49 [facility] Comment on above: Performed By: #### Snehal CANALES, BMP #### [facility] ([id number]) [address], [address] [place] [address] Hemoglobin (Bld) [Mass/Vol] 8.6 g/dL Low 13.0-17.0 [facility] Comment on above: Performed By: #### Snehal CANALES, BMP #### [facility] ([id number]) [address], [address] [place] [address] MCH (RBC) [Entitic mass] 25.7 pg Low 27-34 [facility] Comment on above: Performed By: #### C ALLY, BMP #### [facility] ([id number]) [address], [address] [place] [address] MCHC (RBC) [Mass/Vol] 33.5 g/dL Normal 32-36 [facility] Comment on above: Performed By: #### C ALLY, BMP #### [facility] ([id number]) [address], [address] [place] [address] MCV (RBC) [Entitic vol] 77 fL Low 80-100 [facility] Comment on above: Performed By: #### C ALLY, BMP #### [facility] ([id number]) [address], [address] [place] [address] Platelet mean volume (Bld) [Entitic vol] 9.2 fL Normal 7-12 [facility] Comment on above: Performed By: #### Snehal CANALES, BMP #### [facility] ([id number]) [address], [address] [place] [address] Platelets (Bld) [#/Vol] 185 10*3/uL Normal 150-450 [facility] Comment on above: Performed By: #### C ALLY, BMP #### [facility] ([id number]) [address], [address] [place] [address] RBC COUNT 3.37 X10E12/L Low 4.10-5.70 [facility] Comment on above: Performed By: #### C ALLY, BMP #### [facility] ([id number]) [address], [address] [place] [address] WBC (Bld) [#/Vol] 10.0 10*3/uL Normal 4.0-11.0 [facility] Comment on above: Performed By: #### C ALLY, BMP #### [facility] ([id number]) [address], [address] [place] [address] Glucose Glucometer (BldC) [M ass/Vol]on 11-12-2023 Glucose [Mass/Vol] 230 mg/dL High 65-99 [facility] Glucose [Mass/Vol] 280 mg/dL High 65-99 [facility] Glucose [Mass/Vol] 268 mg/dL High 65-99 [facility] Glucose [Mass/Vol] 220 mg/dL High 65-99 [facility] Glucose [Mass/Vol] 205 mg/dL High 65-99 [facility] MAGNESIUMon 11-12-2023 Magnesium [Mass/Vol] 1.8 mg/dL Normal 1.8-2.6 [facility] Comment on above: Performed By: #### Snehal CANALES, BMP #### [facility] ([id number]) [address], [address] [place] [address] PHOSPHORUSon 11-12-2023 Phosphate [Mass/Vol] 3.8 mg/dL Normal 2.4-4.9 [facility] Comment on above: Performed By: #### Snehal CANALES, BMP #### [facility] ([id number]) [address], [address] [place] [address] BASIC METABOLIC PANLon 11-10 Anion gap [Moles/Vol] 8 mmol/L Normal 5-15 [facility] Comment on above: Performed By: #### Snehal CANALES, BMP #### [facility] ([id number]) [address], [address] [place] [address] Calcium [Mass/Vol] 8.7 mg/dL Normal 8.5-10.5 [facility] Comment on above: Performed By: #### Snehal CANALES, BMP #### [facility] ([id number]) [address], [address] [place] [address] Chloride [Moles/Vol] 99 mmol/L Normal 98-109 [facility] Comment on above: Performed By: #### Snehal CANALES, BMP #### [facility] ([id number]) [address], [address] [place] [address] CO2 [Moles/Vol] 26 mmol/L Normal 22-32 [facility] Comment on above: Performed By: #### Snehal CANALES, BMP #### [facility] ([id number]) [address], [address] [place] [address] Creatinine [Mass/Vol] 1.45 mg/dL High 0.60-1.30 [facility] Comment on above: Result Comment: METH OD TRACEABLE TO IDMS STANDARD Performed By: #### C ALLY, BMP #### [facility] ([id number]) [address], [address] [place] [address] GFR/1.73 sq M.predicted among non-blacks MDRD (S/P/Bld) [Vol rate/Area] 56 mL/min/{1.73_m2} Low >59 [facility] Comment on above: Result Comment: Reported eGFR is based on the CKD-EPI 2020 equation that does not use a race coefficient. Performed By: #### Snehal CANALES, BMP #### [facility] ([id number]) [address], [address] [place] [address] Glucose [Mass/Vol] 153 mg/dL High 65-99 [facility] Comment on above: Performed By: #### Snehal CANALES, BMP #### [facility] ([id number]) [address], [address] [place] [address] Potassium [Moles/Vol] 3.9 mmol/L Normal 3.5-5.0 [facility] Comment on above: Performed By: #### Snehal CANALES, BMP #### [facility] ([id number]) [address], [address] [place] [address] Sodium [Moles/Vol] 133 mmol/L Low 134-146 [facility] Comment on above: Performed By: #### Snehal CANALES, BMP #### [facility] ([id number]) [address], [address] [place] [address] Urea nitrogen [Mass/Vol] 27 mg/dL High 5-23 [facility] Comment on above: Performed By: #### C ALLY, BMP #### [facility] ([id number]) [address], [address] [place] [address] COMPLETE BLOOD COUNTon 11-10 Erythrocyte distribution width (RBC) [Ratio] 24.2 % High 11.5-15.0 [facility] Comment on above: Performed By: #### C ALLY, BMP #### [facility] ([id number]) [address] [place] [address] Hematocrit (Bld) [Volume fraction] 25.1 % Low 39-49 [facility] Comment on above: Performed By: #### C ALLY, BMP #### [facility] ([id number]) [address], [address] [place] [address] Hemoglobin (Bld) [Mass/Vol] 8.2 g/dL Low 13.0-17.0 [facility] Comment on above: Performed By: #### C ALLY, BMP #### [facility] ([id number]) [address], [address] [place] [address] MCH (RBC) [Entitic mass] 25.5 pg Low 27-34 [facility] Comment on above: Performed By: #### C ALLY, BMP #### [facility] ([id number]) [address], [address] [place] [address] MCHC (RBC) [Mass/Vol] 32.7 g/dL Normal 32-36 [facility] Comment on above: Performed By: #### C ALLY, BMP #### [facility] ([id number]) [address], [address] [place] [address] MCV (RBC) [Entitic vol] 78 fL Low 80-100 [facility] Comment on above: Performed By: #### C ALLY, BMP #### [facility] ([id number]) [address], [facility] [address] [place] [address] Platelet mean volume (Bld) [Entitic vol] 9.0 fL Normal 7-12 [facility] Comment on above: Performed By: #### C ALLY, BMP #### [facility] ([id number]) [address], [address] [address] Platelets (Bld) [#/Vol] 152 10*3/uL Normal 150-450 [facility] Comment on above: Performed By: #### Snehal CANALES, BMP #### [facility] ([id number]) [address], [facility] [address] [place] [address] RBC COUNT 3.22 X10E12/L Low 4.10-5.70 [facility] Comment on above: Performed By: #### Snehal CANALES, BMP #### [facility] ([id number]) [address], [address] [address] WBC (Bld) [#/Vol] 9.8 10*3/uL Normal 4.0-11.0 [facility] Comment on above: Performed By: #### Snehal CANALES, BMP #### [facility] ([id number]) [address], [address] [address] Glucose Glucometer (BldC) [M ass/Vol]on 11-11-2023 Glucose [Mass/Vol] 184 mg/dL High 65-99 [facility] Glucose [Mass/Vol] 179 mg/dL High 65-99 [facility] Glucose [Mass/Vol] 222 mg/dL High 65-99 [facility] Glucose [Mass/Vol] 303 mg/dL High 65-99 [facility] MAGNESIUMon 11-11-2023 Magnesium [Mass/Vol] 2.4 mg/dL Normal 1.8-2.6 [facility] Comment on above: Performed By: #### Snehal CANALES BMP #### [facility] ([id number]) [address] [place] [address] Magnesium [Mass/Vol] 1.9 mg/dL Normal 1.8-2.6 [facility] Comment on above: Performed By: #### Snehal CANALES, BMP #### [facility] ([id number]) [address] [place] [address] PHOSPHORUSon 11-11-2023 Phosphate [Mass/Vol] 3.2 mg/dL Normal 2.4-4.9 [facility] Comment on above: Performed By: #### Snehal CANALES BMP #### [facility] ([id number]) [address], [address] [place] [address] BASIC METABOLIC PANLon 11-09 Anion gap [Moles/Vol] 6 mmol/L Normal 5-15 [facility] Comment on above: Performed By: #### KENDALL AHUJA, , 1 ####[facility] ([id number])[address], [place] [address] Calcium [Mass/Vol] 8.5 mg/dL Normal 8.5-10.5 [facility] Comment on above: Performed By: #### KENDALL AHUJA, , 2776-06 ####[facility] ([id number])[address], [address], [place] [address] Chloride [Moles/Vol] 102 mmol/L Normal 98-109 [facility] Comment on above: Performed By: #### KENDALL AHUJA, , 2776-06 ####[facility] ([id number])[address], [address], [place] [address] CO2 [Moles/Vol] 26 mmol/L Normal 22-32 [facility] Comment on above: Performed By: #### C ALLY, KENDALL, , 2776-06 ####[facility] ([id number])[address] [address], [place] [address] Creatinine [Mass/Vol] 1.59 mg/dL High 0.60-1.30 [facility] Comment on above: Result Comment: METH OD TRACEABLE TO IDMS STANDARD Performed By: #### C ALLY, [facility], , 2776-06 ####[facility] ([id number])[address] [address] [place] [address] GFR/1.73 sq M.predicted among non-blacks MDRD (S/P/Bld) [Vol rate/Area] 50 mL/min/{1.73_m2} Low >59 [facility] Comment on above: Result Comment: Reported eGFR is based on the CKD-EPI 2020 equation that does not use a race coefficient. Performed By: #### C ALLY [facility], , 2776-06 ####[facility] ([id number])[address] [address] [address] Glucose [Mass/Vol] 145 mg/dL High 65-99 [facility] Comment on above: Performed By: #### KENDALL AHUJA, , 2776-06 ####[facility] ([id number])[address] [address], [place] [address] Potassium [Moles/Vol] 3.9 mmol/L Normal 3.5-5.0 [facility] Comment on above: Performed By: #### Snehal CANALES, KENDALL, , 2776-06 ####[facility] ([id number])[address] [address], [place] [address] Sodium [Moles/Vol] 134 mmol/L Normal 134-146 [facility] Comment on above: Performed By: #### Snehal CANALES, KENDALL, , 2776-06 ####[facility] ([id number])[address] [address], [place] [address] Urea nitrogen [Mass/Vol] 23 mg/dL Normal 5-23 [facility] Comment on above: Performed By: #### C ALLY, [facility], , 2776-06 ####[facility] ([id number])[address] [address], [place] [address] COMPLETE BLOOD COUNTon 11-09 Erythrocyte distribution width (RBC) [Ratio] 24.9 % High 11.5-15.0 [facility] Comment on above: Performed By: #### C ALLY, [facility], , 2776-06 ####[facility] ([id number])[address] [address] [address] Hematocrit (Bld) [Volume fraction] 24.5 % Low 39-49 [facility] Comment on above: Performed By: #### C ALLY, [facility], , 2776-06 ####[facility] ([id number])[address] [address] [address] Hemoglobin (Bld) [Mass/Vol] 7.9 g/dL Low 13.0-17.0 [facility] Comment on above: Performed By: #### C ALLY [facility], , 2776-06 ####[facility] ([id number])[address] [address] [address] MCH (RBC) [Entitic mass] 25.4 pg Low 27-34 [facility] Comment on above: Performed By: #### C ALLY, [facility], , 2776-06 ####[facility] ([id number])[address] [address], [place] [address] MCHC (RBC) [Mass/Vol] 32.4 g/dL Normal 32-36 [facility] Comment on above: Performed By: #### C ALLY [facility], , 2776-06 ####[facility] ([id number])[address], [place] [address] MCV (RBC) [Entitic vol] 78 fL Low 80-100 [facility] Comment on above: Performed By: #### Snehal CANALES, [facility], , 2776-06 ####[facility] ([id number])[address] [address] Platelet mean volume (Bld) [Entitic vol] 9.1 fL Normal 7-12 [facility] Comment on above: Performed By: #### Snehal CANALES [facility], , 2776-06 ####[facility] ([id number])[address], [place] [address] Platelets (Bld) [#/Vol] 142 10*3/uL Low 150-450 [facility] Comment on above: Performed By: #### Snehal CANALES [facility], , 2776-06 ####[facility] ([id number])[address] [address], [place] [address] RBC COUNT 3.14 X10E12/L Low 4.10-5.70 [facility] [facility] Comment on above: Performed By: #### Snehal CANALES [facility], , 2776-06 ####[facility] ([id number])[address] [address] [place] [address] WBC (Bld) [#/Vol] 9.7 10*3/uL Normal 4.0-11.0 [facility] Comment on above: Performed By: #### Snehal CANALES, BMP, , 2776-06 ####[facility] ([id number])[address], [address], [place] [address] Glucose Glucometer (BldC) [M ass/Vol]on 11-10-2023 Glucose [Mass/Vol] 168 mg/dL High 65-99 [facility] Glucose [Mass/Vol] 245 mg/dL High 65-99 [facility] Glucose [Mass/Vol] 155 mg/dL High 65-99 [facility] Glucose [Mass/Vol] 153 mg/dL High 65-99 [facility] MAGNESIUMon 11-10-2023 Magnesium [Mass/Vol] 2.2 mg/dL Normal 1.8-2.6 [facility] Comment on above: Performed By: #### Snehal CANALES, BMP #### [facility] ([id number]) [address], [address] [place] [address] Magnesium [Mass/Vol] 1.8 mg/dL Normal 1.8-2.6 [facility] Comment on above: Performed By: #### Snehal CANALES, KENDALL, , 2776-06 ####[facility] ([id number])[address], [address], [place] [address] PHOSPHORUSon 11-10-2023 Phosphate [Mass/Vol] 3.1 mg/dL Normal 2.4-4.9 [facility] Comment on above: Performed By: #### Snehal CANALES, KENDALL, , 2776-06 ####[facility] ([id number])[address], [address], [place] [address] BASIC METABOLIC PANLon 11-08 Anion gap [Moles/Vol] 9 mmol/L Normal 5-15 [facility] Comment on above: Performed By: #### Snehal CANALES, 2639-3, BMP, 2156-11, , 2776-06 ####[facility] ([id number])[address], [address], [place] [address] Calcium [Mass/Vol] 8.4 mg/dL Low 8.5-10.5 [facility] Comment on above: Performed By: #### Snehal CANALES, 2639-3, BMP, 2156-11, , 2776-06 ####[facility] ([id number])[address] [address], [place] [address] Chloride [Moles/Vol] 104 mmol/L Normal 98-109 [facility] Comment on above: Performed By: #### C BC, 2639-3, BMP, 2156-6, , 2776- ####[facility] ([id number])[address], [address] [place] [address] CO2 [Moles/Vol] 25 mmol/L Normal 22-32 [facility] Comment on above: Performed By: #### C BC, 2639-3, BMP, 2156-, , 2776-06 ####[facility] ([id number])[address] [address] Creatinine [Mass/Vol] 1.35 mg/dL High 0.60-1.30 [facility] Comment on above: Result Comment: METH OD TRACEABLE TO IDMS STANDARD Performed By: #### C BC, 2639-3, BMP, 2156-11, , 2776-06 ####[facility] ([id number])[address] [address] GFR/1.73 sq M.predicted among non-blacks MDRD (S/P/Bld) [Vol rate/Area] 61 mL/min/{1.73_m2} Normal >59 [facility] Comment on above: Result Comment: Reported eGFR is based on the CKD-EPI 2020 equation that does not use a race coefficient. Performed By: #### C BC, 2639-3, BMP, 2156-11, , 2776-06 ####[facility] ([id number])[address] [address] Glucose [Mass/Vol] 217 mg/dL High 65-99 [facility] Comment on above: Performed By: #### C BC, 2639-3, BMP, 2156-6, 52565-7, 2776-1 ####[facility] ([id number])[address], [address], [place] [address] Potassium [Moles/Vol] 4.2 mmol/L Normal 3.5-5.0 [facility] Comment on above: Performed By: #### C BC, 2639-3, BMP, 2156-6, 33629-2, 2776- ####[facility] ([id number])[address], [address], [place] [address] Sodium [Moles/Vol] 138 mmol/L Normal 134-146 [facility] Comment on above: Performed By: #### C ALLY, 2639-3, BMP, 2156-6, 39552-6, 2776- ####[facility] ([id number])[address], [address], [place] [address] Urea nitrogen [Mass/Vol] 23 mg/dL Normal 5-23 [facility] Comment on above: Performed By: #### C ALLY, 2639-3, BMP, 2156-6, , 2776-1 ####[facility] ([id number])[address], [address], [place] [address] CK [Catalytic activity/Vol]o n 11-09-2023 CPK 44 U/L Normal 24-195 [facility] Comment on above: Performed By: #### 2 157-6, 2639-3 ####[facility] ([id number])[address] [address], [place] [address] CPK 30 U/L Normal 24-195 [facility] Comment on above: Performed By: #### C BC, 2639-3, BMP, 2156-, 31133-8, 2776- ####[facility] ([id number])[address], [address], [place] [address] COMPLETE BLOOD COUNTon 11-08 Erythrocyte distribution width (RBC) [Ratio] 24.9 % High 11.5-15.0 [facility] Comment on above: Performed By: #### C BC, 2639-3, BMP, 2156-6, 01906-5, 2776-1 ####[facility] ([id number])[address], [address] [place] [address] Hematocrit (Bld) [Volume fraction] 26.8 % Low 39-49 [facility] Comment on above: Performed By: #### Snehal BC, 2639-3, BMP, 2156-6, , 2776-06 ####[facility] ([id number])[address] [address] [place] [address] Hemoglobin (Bld) [Mass/Vol] 8.7 g/dL Low 13.0-17.0 [facility] Comment on above: Performed By: #### Snehal CAANLES, 2639-3, BMP, 2156-, , 2776-06 ####[facility] ([id number])[address] [address] [place] [address] MCH (RBC) [Entitic mass] 24.8 pg Low 27-34 [facility] Comment on above: Performed By: #### Snehal BC, 2639-3, BMP, 2156-6, , 2776-06 ####[facility] ([id number])[address], [address] [place] [address] MCHC (RBC) [Mass/Vol] 32.6 g/dL Normal 32-36 [facility] Comment on above: Performed By: #### Snehal BC, 2639-3, BMP, 2156-6, , 277-1 ####[facility] ([id number])[address], [address] [place] [address] MCV (RBC) [Entitic vol] 76 fL Low 80-100 [facility] Comment on above: Performed By: #### Snehal CANALES, 2639-3, BMP, 2156-11, , 2776-06 ####[facility] ([id number])[address] [address] [place] [address] Platelet mean volume (Bld) [Entitic vol] 9.3 fL Normal 7-12 [facility] Comment on above: Performed By: #### Snehal CANALES, 2639-3, BMP, 2156-11, , 2776- ####[facility] ([id number])[address] [address] [place] [address] Platelets (Bld) [#/Vol] 184 10*3/uL Normal 150-450 [facility] Comment on above: Performed By: #### Snehal CANALES, 2639-3, BMP, 2156-11, , 2776-06 ####[facility] ([id number])[address] [address] RBC COUNT 3.53 X10E12/L Low 4.10-5.70 [facility] Comment on above: Performed By: #### Snehal CANALES, 2639-3, BMP, 2156-11, , 2776-06 ####[facility] ([id number])[address] [address] WBC (Bld) [#/Vol] 11.0 10*3/uL Normal 4.0-11.0 [facility] Comment on above: Performed By: #### Snehal CANALES, 2639-3, BMP, 2156-11, , 2776-06 ####[facility] ([id number])[address] [address] Glucose Glucometer (BldC) [M ass/Vol]on 11-09-2023 Glucose [Mass/Vol] 243 mg/dL High 65-99 [facility] Glucose [Mass/Vol] 184 mg/dL High 65-99 [facility] Glucose [Mass/Vol] 199 mg/dL High 65-99 [facility] Glucose [Mass/Vol] 218 mg/dL High 65-99 [facility] Heparin unfractionated Chrom ogenic method Qn (PPP)on 11-09-2023 ANTI XA UFH 0.15 IU/mL Low 0.30-0.70 [facility] Comment on above: Result Comment: Opti mal time for testing is 6 hrs post dosage This test is specific for monitoring patients on UFH, and is not recommended for use with other Anti-Xa medications. Performed By: #### 3 274-8 ####[facility] ([id number])[address], [address] [place] [address] MAGNESIUMon 11-09-2023 Magnesium [Mass/Vol] 2.2 mg/dL Normal 1.8-2.6 [facility] Comment on above: Performed By: #### C ALLY, 2639-3, BMP, 2156-11, , 2776-1 ####[facility] ([id number])[address], [address] [place] [address] Myoglobin [Mass/Vol]on 11-08 SERUM MYOGLOBIN 97.7 ng/mL Normal 17.4-105.7 [facility] Comment on above: Performed By: #### 2 157-6, 2639-3 ####[facility] ([id number])[address], [address] [place] [address] SERUM MYOGLOBIN 51.7 ng/mL Normal 17.4-105.7 [facility] Comment on above: Performed By: #### C BC, 2639-3, BMP, 2156-11, , 2776-1 ####[facility] ([id number])[address], [address], [place] [address] PHOSPHORUSon 11-09-2023 Phosphate [Mass/Vol] 4.4 mg/dL Normal 2.4-4.9 [facility] Comment on above: Performed By: #### C BC, 2639-3, BMP, 2157-6, 66478-9, 2777-1 ####[facility] ([id number])[address], [address], [place] [address] BASIC METABOLIC PANLon 11-07 Anion gap [Moles/Vol] 9 mmol/L Normal 5-15 [facility] Comment on above: Performed By: #### P INR #### [facility] ([id number]) [address], [address] [place] [address] Calcium [Mass/Vol] 8.4 mg/dL Low 8.5-10.5 [facility] Comment on above: Performed By: #### P INR #### [facility] ([id number]) [address], [address] [place] [address] Chloride [Moles/Vol] 106 mmol/L Normal 98-109 [facility] Comment on above: Performed By: #### P INR #### [facility] ([id number]) [address], [address] [place] [address] CO2 [Moles/Vol] 24 mmol/L Normal 22-32 [facility] Comment on above: Performed By: #### P INR #### [facility] ([id number]) [address], [address] [place] [address] Creatinine [Mass/Vol] 1.30 mg/dL Normal 0.60-1.30 [facility] Comment on above: Result Comment: METH OD TRACEABLE TO IDMS STANDARD Performed By: #### P INR #### [facility] ([id number]) [address], [address] [place] [address] GFR/1.73 sq M.predicted among non-blacks MDRD (S/P/Bld) [Vol rate/Area] 64 mL/min/{1.73_m2} Normal >59 [facility] Comment on above: Result Comment: Reported eGFR is based on the CKD-EPI 2020 equation that does not use a race coefficient. Performed By: #### P INR #### [facility] ([id number]) [address], [address] [place] [address] Glucose [Mass/Vol] 163 mg/dL High 65-99 [facility] Comment on above: Performed By: #### P INR #### [facility] ([id number]) [address] [address] [place] [address] Potassium [Moles/Vol] 4.1 mmol/L Normal 3.5-5.0 [facility] Comment on above: Performed By: #### P INR #### [facility] ([id number]) [address], [address] [place] [address] Sodium [Moles/Vol] 139 mmol/L Normal 134-146 [facility] Comment on above: Performed By: #### P INR #### [facility] ([id number]) [address], [address] [place] [address] Urea nitrogen [Mass/Vol] 23 mg/dL Normal 5-23 [facility] Comment on above: Performed By: #### P INR #### [facility] ([id number]) [address] [address] [place] [address] Anion gap [Moles/Vol] 9 mmol/L Normal 5-15 [facility] Comment on above: Performed By: #### C BC, BMP #### [facility] ([id number]) [address], [address] [place] [address] Calcium [Mass/Vol] 8.8 mg/dL Normal 8.5-10.5 [facility] Comment on above: Performed By: #### C ALLY, BMP #### [facility] ([id number]) [address] [place] [address] Chloride [Moles/Vol] 104 mmol/L Normal 98-109 [facility] Comment on above: Performed By: #### C ALLY, BMP #### [facility] ([id number]) [address], [address] [place] [address] CO2 [Moles/Vol] 25 mmol/L Normal 22-32 [facility] Comment on above: Performed By: #### C ALLY, BMP #### [facility] ([id number]) [address], [address] [place] [address] Creatinine [Mass/Vol] 1.70 mg/dL High 0.60-1.30 [facility] Comment on above: Result Comment: METH OD TRACEABLE TO IDMS STANDARD Performed By: #### C ALLY, BMP #### [facility] ([id number]) [address], [address] [place] [address] GFR/1.73 sq M.predicted among non-blacks MDRD (S/P/Bld) [Vol rate/Area] 46 mL/min/{1.73_m2} Low >59 [facility] Comment on above: Result Comment: Reported eGFR is based on the CKD-EPI 2020 equation that does not use a race coefficient. Performed By: #### C ALLY, BMP #### [facility] ([id number]) [address] [place] [address] Glucose [Mass/Vol] 111 mg/dL High 65-99 [facility] Comment on above: Performed By: #### C ALLY, BMP #### [facility] ([id number]) [address], [address] [place] [address] Potassium [Moles/Vol] 3.8 mmol/L Normal 3.5-5.0 [facility] Comment on above: Performed By: #### C BC, BMP #### [facility] ([id number]) [address] [address] [place] [address] Sodium [Moles/Vol] 138 mmol/L Normal 134-146 [facility] Comment on above: Performed By: #### C BC, BMP #### [facility] ([id number]) [address], [address] [place] [address] Urea nitrogen [Mass/Vol] 28 mg/dL High 5-23 [facility] Comment on above: Performed By: #### C BC, BMP #### [facility] ([id number]) [address] [address] CK [Catalytic activity/Vol]o n 11-08-2023 CPK 26 U/L Normal 24-195 [facility] Comment on above: Performed By: #### P INR #### [facility] ([id number]) [address] [address] [place] [address] COMPLETE BLOOD COUNTon 11-07 Erythrocyte distribution width (RBC) [Ratio] 24.8 % High 11.5-15.0 [facility] Comment on above: Performed By: #### P INR #### [facility] ([id number]) [address], [address] [place] [address] Hematocrit (Bld) [Volume fraction] 29.3 % Low 39-49 [facility] Comment on above: Performed By: #### P INR #### [facility] ([id number]) [address] [address] [place] [address] Hemoglobin (Bld) [Mass/Vol] 9.6 g/dL Low 13.0-17.0 [facility] Comment on above: Performed By: #### P INR #### [facility] ([id number]) [address], [address] [place] [address] MCH (RBC) [Entitic mass] 24.9 pg Low 27-34 [facility] Comment on above: Performed By: #### P INR #### [facility] ([id number]) [address], [address] [place] [address] MCHC (RBC) [Mass/Vol] 32.7 g/dL Normal 32-36 [facility] Comment on above: Performed By: #### P INR #### [facility] ([id number]) [address], [address] [place] [address] MCV (RBC) [Entitic vol] 76 fL Low 80-100 [facility] Comment on above: Performed By: #### P INR #### [facility] ([id number]) [address], [address] [place] [address] Platelet mean volume (Bld) [Entitic vol] 8.7 fL Normal 7-12 [facility] Comment on above: Performed By: #### P INR #### [facility] ([id number]) [address], [address] [place] [address] Platelets (Bld) [#/Vol] 169 10*3/uL Normal 150-450 [facility] Comment on above: Performed By: #### P INR #### [facility] ([id number]) [address], [address] [place] [address] RBC COUNT 3.85 X10E12/L Low 4.10-5.70 [facility] Comment on above: Performed By: #### P INR #### [facility] ([id number]) [address], [address] [place] [address] WBC (Bld) [#/Vol] 13.5 10*3/uL High 4.0-11.0 [facility] Comment on above: Performed By: #### P INR #### [facility] ([id number]) [address], [address] [place] [address] Erythrocyte distribution width (RBC) [Ratio] 25.2 % High 11.5-15.0 [facility] Comment on above: Performed By: #### C ALLY, BMP #### [facility] ([id number]) [address], [address] [place] [address] Hematocrit (Bld) [Volume fraction] 33.0 % Low 39-49 [facility] Comment on above: Performed By: #### C ALLY, BMP #### [facility] ([id number]) [address] [place] [address] Hemoglobin (Bld) [Mass/Vol] 10.8 g/dL Low 13.0-17.0 [facility] Comment on above: Performed By: #### C ALLY, BMP #### [facility] ([id number]) [address], [address] [place] [address] MCH (RBC) [Entitic mass] 25.0 pg Low 27-34 [facility] Comment on above: Performed By: #### C ALYL, BMP #### [facility] ([id number]) [address], [address] [place] [address] MCHC (RBC) [Mass/Vol] 32.8 g/dL Normal 32-36 [facility] Comment on above: Performed By: #### C ALLY, BMP #### [facility] ([id number]) [address], [address] [place] [address] MCV (RBC) [Entitic vol] 76 fL Low 80-100 [facility] Comment on above: Performed By: #### C ALLY, BMP #### [facility] ([id number]) [address], [address] [place] [address] Platelet mean volume (Bld) [Entitic vol] 8.8 fL Normal 7-12 [facility] Comment on above: Performed By: #### C BC, BMP #### [facility] ([id number]) [address], [address] [place] [address] Platelets (Bld) [#/Vol] 172 10*3/uL Normal 150-450 [facility] Comment on above: Performed By: #### C BC, BMP #### [facility] ([id number]) [address] [place] [address] RBC COUNT 4.33 X10E12/L Normal 4.10-5.70 [facility] Comment on above: Performed By: #### C BC, BMP #### [facility] ([id number]) [address], [address] [place] [address] WBC (Bld) [#/Vol] 9.3 10*3/uL Normal 4.0-11.0 [facility] Comment on above: Performed By: #### C BC, BMP #### [facility] ([id number]) [address] [place] [address] Glucose Glucometer (dC) [M ass/Vol]on 11-08-2023 Glucose [Mass/Vol] 162 mg/dL High 65-99 [facility] Glucose [Mass/Vol] 96 mg/dL Normal 65-99 [facility] Glucose [Mass/Vol] 142 mg/dL High 65-99 [facility] Glucose [Mass/Vol] 114 mg/dL High 65-99 [facility] Lactate (P ekaterina) [Moles/Vol]o n 11-08-2023 LACTATE W/REFLEX 1.0 mmol/L Normal 0.4-2.0 [facility] Comment on above: Result Comment: Result did not trigger repeat Lactate, re-order if needed. Performed By: #### P INR #### [facility] ([id number]) [address] [place] [address] MAGNESIUMon 11-08-2023 Magnesium [Mass/Vol] 1.7 mg/dL Low 1.8-2.6 [facility] Comment on above: Performed By: #### P INR #### [facility] ([id number]) [address], [address] [place] [address] Myoglobin [Mass/Vol]on 11-07 SERUM MYOGLOBIN 33.1 ng/mL Normal 17.4-105.7 [facility] Comment on above: Performed By: #### P INR #### [facility] ([id number]) [address] [place] [address] PHOSPHORUSon 11-08-2023 Phosphate [Mass/Vol] 4.0 mg/dL Normal 2.4-4.9 [facility] Comment on above: Performed By: #### P INR #### [facility] ([id number]) [address] [place] [address] PROTIME AND INRon 11-08-2023 INR Coag (PPP) [Relative time] 1.3 {INR} High 0.8-1.1 [facility] Comment on above: Performed By: #### P INR #### [facility] ([id number]) [address], [address] [place] [address] PT Coag (PPP) [Time] 14.7 s High 9.8-13.2 [facility] Comment on above: Performed By: #### P INR #### [facility] ([id number]) [address], [address] [place] [address] RAPID CARDIACon 11-08-2023 COURTNEY'S TEST Normal [facility] Comment on above: Performed By: #### A FAB5 #### [facility] ([id number]) [address] [place] [address] Base excess Calc (Bld) [Moles/Vol] 0.1 mmol/L Normal 0.0-2.0 [facility] Comment on above: Performed By: #### A FAB5 #### [facility] ([id number]) [address] [facility] [place] [address] Body temperature 98.6 [degF] Normal 37.0 [facility] Comment on above: Performed By: #### A FAB5 #### [facility] ([id number]) [address] [place] [address] Glucose [Mass/Vol] 117 mg/dL High 65-99 [facility] Comment on above: Performed By: #### A FAB5 #### [facility] ([id number]) [address] [place] [address] HCO3 (Bld) [Moles/Vol] 24.8 mmol/L Normal 22-26 [facility] Comment on above: Performed By: #### A [id number] #### [facility] ([id number]) [address] [place] [address] Hematocrit (Bld) [Volume fraction] 31 % Low 39-49 [facility] Comment on above: Performed By: #### A [id number] #### [facility] ([id number]) [address] [place] [address] Hemoglobin (Bld) [Mass/Vol] 10.2 g/dL Low 13.0-17.0 [facility] Comment on above: Performed By: #### A [id number] #### [facility] ([id number]) [address] [facility] [place] [address] INSP. O2 CONC. 100 % Normal [facility] Comment on above: Performed By: #### A FAB5 #### [facility] ([id number]) [address] [place] [address] IONIZED CALCIUM 4.8 mg/dL Normal 4.5-5.3 [facility] Comment on above: Performed By: #### A [id number] #### [facility] ([id number]) [address] [place] [address] Oxygen (Bld) [Partial pressure] 167 mm[Hg] High 80-100 [facility] Comment on above: Performed By: #### A FAB5 #### [facility] ([id number]) [address] [place] [address] Oxygen saturation in Blood 100.8 % Normal >90 [facility] Comment on above: Performed By: #### A FAB5 #### [facility] ([id number]) [address] [place] [address] PCO2 39.7 MMHG Normal 35-45 [facility] Comment on above: Performed By: #### A FAB5 #### [facility] ([id number]) [address] [place] [address] pH (Bld) 7.404 [pH] Normal 7.350-7.45 0 [facility] Comment on above: Performed By: #### A FAB5 #### [facility] ([id number]) [address] [place] [address] Potassium [Moles/Vol] 3.8 mmol/L Normal 3.5-5.0 [facility] Comment on above: Performed By: #### A FAB5 #### [facility] ([id number]) [address] [place] [address] SAMPLE SITE KECIA Normal [facility] Comment on above: Performed By: #### A FAB5 #### [facility] ([id number]) [address] [place] [address] SAMPLE TYPE Arterial Normal [facility] Comment on above: Performed By: #### A FAB5 #### [facility] ([id number]) [address] [place] [address] RAPID CARDIAC W/ NAon 2023 COURTNEY'S TEST Normal [facility] Comment on above: Performed By: #### P INR #### [facility] ([id number]) [address] [address] [place] [address] Base excess Calc (Bld) [Moles/Vol] 0.2 mmol/L Normal 0.0-2.0 [facility] Comment on above: Performed By: #### P INR #### [facility] ([id number]) [address] [address] [place] [address] Body temperature 98.6 [degF] Normal 37.0 [facility] Comment on above: Performed By: #### P INR #### [facility] ([id number]) [address] [address] [place] [address] Glucose [Mass/Vol] 125 mg/dL High 65-99 [facility] Comment on above: Performed By: #### P INR #### [facility] ([id number]) [address] [address] [place] [address] HCO3 (Bld) [Moles/Vol] 25.3 mmol/L Normal 22-26 [facility] Comment on above: Performed By: #### P INR #### [facility] ([id number]) [address] [address] [place] [address] Hematocrit (Bld) [Volume fraction] 31 % Low 39-49 [facility] Comment on above: Performed By: #### P INR #### [facility] ([id number]) [address] [address] [place] [address] Hemoglobin (Bld) [Mass/Vol] 10.0 g/dL Low 13.0-17.0 [facility] Comment on above: Performed By: #### P INR #### [facility] ([id number]) [address] [address] [place] [address] INSP. O2 CONC. 50 % Normal [facility] Comment on above: Performed By: #### P INR #### [facility] ([id number]) [address] [place] [address] IONIZED CALCIUM 4.7 mg/dL Normal 4.5-5.3 [facility] Comment on above: Performed By: #### P INR #### [facility] ([id number]) [address] [place] [address] Oxygen (Bld) [Partial pressure] 131 mm[Hg] High 80-100 [facility] Comment on above: Performed By: #### P INR #### [facility] ([id number]) [address], [address] [place] [address] Oxygen saturation in Blood 99.9 % Normal >90 [facility] Comment on above: Performed By: #### P INR #### [facility] ([id number]) [address], [address] [place] [address] PCO2 42.7 MMHG Normal 35-45 [facility] Comment on above: Performed By: #### P INR #### [facility] ([id number]) [address] [place] [address] pH (Bld) 7.381 [pH] Normal 7.350-7.45 0 [facility] Comment on above: Performed By: #### P INR #### [facility] ([id number]) [address] [place] [address] Potassium [Moles/Vol] 3.7 mmol/L Normal 3.5-5.0 [facility] Comment on above: Performed By: #### P INR #### [facility] ([id number]) [address], [address] [place] [address] SAMPLE SITE KECIA Normal [facility] Comment on above: Performed By: #### P INR #### [facility] ([id number]) [address], [address] [place] [address] SAMPLE TYPE Arterial Normal [facility] Comment on above: Performed By: #### P INR #### [facility] ([id number]) [address] [place] [address] Sodium [Moles/Vol] 139 mmol/L Normal 134-146 [facility] Comment on above: Performed By: #### P INR #### [facility] ([id number]) [address] [place] [address] aPTT Coag (PPP) [Time]on aPTT Coag (Bld) [Time] 30 s Normal 26-37 Pr [facility] Comment on above: Performed By: #### P INR #### [facility] ([id number]) [address] [place] [address] Glucose Glucometer (BldC) [M ass/Vol]on 11-07-2023 Glucose [Mass/Vol] 150 mg/dL High 65-99 [facility] Glucose [Mass/Vol] 58 mg/dL Low 65-99 [facility] POC [id number] 11-07-2023 Chloride [Moles/Vol] 98 mmol/L Normal 98-109 [facility] Comment on above: Performed By: #### I ELGBC #### [facility] ([id number]) [address] [place] [address] CO2 [Moles/Vol] 31 mmol/L Normal 22-32 [facility] Comment on above: Performed By: #### I ELGBC #### [facility] ([id number]) [address] [place] [address] Creatinine [Mass/Vol] 1.9 mg/dL High 0.7-1.2 [facility] Comment on above: Result Comment: METH OD TRACEABLE TO IDMS STANDARD Performed By: #### I [facility] #### [facility] ([id number]) [address] [place] [address] GFR/1.73 sq M.predicted among non-blacks MDRD (S/P/Bld) [Vol rate/Area] 40 mL/min/{1.73_m2} Low >59 [facility] Comment on above: Result Comment: Reported eGFR is based on the CKD-EPI 2020 equation that does not use a race coefficient. Performed By: #### I [facility] #### [facility] ([id number]) [address] [place] [address] Glucose [Mass/Vol] 72 mg/dL Normal 65-99 [facility] Comment on above: Performed By: #### I [facility] #### [facility] ([id number]) [address] [place] [address] Potassium [Moles/Vol] 3.6 mmol/L Normal 3.5-5.0 [facility] Comment on above: Performed By: #### I [facility] #### [facility] ([id number]) [address] [place] [address] Sodium [Moles/Vol] 139 mmol/L Normal 134-146 [facility] Comment on above: Performed By: #### I [facility] #### [facility] ([id number]) [address] [place] [address] Urea nitrogen [Mass/Vol] 31 mg/dL High 6-23 [facility] Comment on above: Performed By: #### I [facility] #### [facility] ([id number]) [address] [place] [address] PROTIME AND INRon 11-07-2023 INR Coag (PPP) [Relative time] 1.3 {INR} High 0.8-1.1 [facility] Comment on above: Performed By: #### P INR #### [facility] ([id number]) [address] [place] [address] PT Coag (PPP) [Time] 14.5 s High 9.8-13.2 [facility] Comment on above: Performed By: #### P INR #### [facility] ([id number]) [address] [place] [address] ECG 12 Leadon 10-24-2023 [facility] Work Phone: Consent for Treatmenton 10-04 Consent for Treatment [id number]#1.00TIFF Normal [facility] Office/Cl inic Noteon [...] lower extremity with 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 Normal [facility] Comment on above: Result Comment: Elec tronically Signed By: Simon HERRERA, Mike Weathers\.br\Date and Time Signed: 10/23/23 10:35 EDT [...] to severely abnormal, worsening distally. Ordering Provider: Mike Montes FINAL REPORT Dictated: 10/20/2023 12:31 pm Christiano Guillen MD Signed (Electronic Signature): 10/20/2023 12:31 pm Signed by: Christiano Guillen MD Transcribed by: HASEEB Technologist: TARAN [place] [facility] CHEMISTRYOrdered By: SYSTEM SYSTEM on 10-19-2023 Creatinine [Mass/Vol] 1.6 mg/dL High 0.5 - 1.3 mg/dL Remisol Chem eGFR 50 mL/min/1.73 m2 Low >=59mL/min /1.73 m2 Remisol Chem CTA Abd Aorto-bilat/ iliofem oral runoffon 05-16-2024 CTA Abd Aorto-bilat/ iliofemoral runoff Exam Date/Time: [...] as low as reasonably achievable. Ordering Provider: Mike Montes FINAL REPORT Dictated: 10/19/2023 4:18 pm Jose M Zuleta DO Signed (Electronic Signature): 10/19/2023 4:18 pm Signed by: Jose M Zuleta DO Transcribed by: HASEEB Technologist: ROMAN Technical Comments GFR (mL/min/1/73m2) 50 Contrast: Isovue 370 Contrast amount in ml's: 150 Normal [facility] Consent for Treatmenton 10-03 Consent for Treatment [id number]#1.00TIFF Normal [facility] Creatinineon 10-19-2023 Creatinine [Mass/Vol] 1.6 mg/dL High 0.5-1.3 [facility] Comment on above: Performed By: #### 2 [id number] #### [facility] [address] [place] [address] Physician Orderon 10-19-2023 Physician Order [id number]#1.00TIFF [facility] eGFRon 10-19-2023 eGFR 50 mL/min/1.73 m2 Low >=59 [facility] Comment on above: Order Comment: Order added by Discern Expert. Performed By: #### 1 [id number] #### [facility] [address] [place] [address] Outside Progress Noteon 10-03 Outside Progress Note [id number]#1.00TIFF Normal [facility] Physician Orderon 10-18-2023 Physician Order [id number]#1.00TIF F Normal [facility] Physician Order [id number]#1.00TIFF Normal [facility] Basophils Auto (Bld) [#/Vol] on 10-06-2023 Basophils (Bld) [#/Vol] 0.0 10 3/uL 0.0-0.[address] [facility] Basophils/100 WBC Auto (Bld) on 10-06-2023 Basophils/100 WBC (Bld) 0.3 % 0.2-2.[address] [facility] Eosinophils/100 WBC Auto (Bl d)on 10-06-2023 Eosinophils/100 WBC (Bld) 1.9 % 0.9-7.[address] [facility] Erythrocyte distribution wid th Auto (RBC) [Ratio]on 10-06-2023 Erythrocyte distribution width (RBC) [Ratio] 19.9 % High 11.0-15.[address] [facility] Estimated glomerular filtrat ion rate (GFR) non- Americanon 10-06-2023 GFR/1.73 sq M.predicted among non-blacks MDRD (S/P/Bld) [Vol rate/Area] 42 mL/min/{1.73_m2} Low >=[address] [facility] Globulin Calc (S) [Mass/Vol] on 10-06-2023 Globulin (S) [Mass/Vol] 4.3 g/dL [facility] Hematocrit Auto (Bld) [Volum e fraction]on 10-06-2023 Hematocrit (Bld) [Volume fraction] 28.3 % Low 42.0-54.[address] [facility] Hemoglobin [Mass/volume] in Bloodon 10-06-2023 Hemoglobin (Bld) [Mass/Vol] 8.4 g/dL Low 14.0-18.[address] [facility] - Chemistry and C hemistry - challengeon 10-06-2023 Albumin [Mass/Vol] 2.1 g/dL Low 3.4-5.0 [facility] ALP [Catalytic activity/Vol] 133 U/L High 46-[address] [facility] ALT [Catalytic activity/Vol] 18 U/L 16-[address] [facility] AST [Catalytic activity/Vol] 20 U/L 15-[address] [facility] Bilirubin [Mass/Vol] 0.3 mg/dL 0.2-1.0 [facility] Calcium [Mass/Vol] 9.4 mg/dL 8.5-10.1 [facility] Chloride [Moles/Vol] 103 mmol/L 98-107 [facility] CO2 [Moles/Vol] 23.7 mmol/L 21.0-32.0 [facility] Creatinine [Mass/Vol] 1.67 mg/dL High 0.70-1.30 [facility] GFR/1.73 sq M.predicted MDRD (S/P/Bld) [Vol rate/Area] 52 mL/min/{1.73_m2} Low >=[address] [facility] Glucose [Mass/Vol] 91 mg/dL 74-106 [facility] Magnesium [Mass/Vol] 1.6 mg/dL Low 1.8-2.4 [facility] Potassium [Moles/Vol] 4.8 mmol/L 3.5-5.1 [facility] Protein [Mass/Vol] 6.4 g/dL 6.4-8.2 [facility] Sodium [Moles/Vol] 136 mmol/L 136-145 [facility] Urea nitrogen [Mass/Vol] 29.0 mg/dL High 7.0-18.[address] [facility] Urea nitrogen/Creatinine [Mass ratio] 17.4 mg/mg [facility] - Hematology and Cell countson 10-06-2023 ESR (Bld) [Velocity] mm/h High <=20 [facility] Immature granulocytes/100 WBC (Bld) 1.5 % High 0.0-0.[address] [facility] Leukocytes [#/volume] correc jorge for nucleated erythrocytes in Blood by Automated counon 10-06-2023 WBC corrected for nucl RBC Auto (Bld) [#/Vol] 11.6 10 3/uL High 4.0-11.[address] [facility] Lymphocytes Auto (Bld) [#/Vo l]on 10-06-2023 Lymphocytes (Bld) [#/Vol] 1.5 10 3/uL 1.2-3.[address] [facility] Lymphocytes/100 WBC Auto (Bl d)on 10-06-2023 Lymphocytes/100 WBC (Bld) 12.9 % Low 20.5-60.[address] [facility] MCH Auto (RBC) [Entitic mass ]on 10-06-2023 MCH (RBC) [Entitic mass] 22.5 pg Low 25.9-34.[address] [facility] MCHC Auto (RBC) [Mass/Vol]on 10-06-2023 MCHC (RBC) [Mass/Vol] 29.7 g/dL Low 29.9-35.2 [facility] MCV Auto (RBC) [Entitic vol] on 10-06-2023 MCV (RBC) [Entitic vol] 75.9 fL Low 80.0-94.[address] [facility] Monocytes Auto (Bld) [#/Vol] on 10-06-2023 Monocytes (Bld) [#/Vol] 1.3 10 3/uL High 0.3-0.[address] [facility] Monocytes/100 WBC Auto (Bld) on 10-06-2023 Monocytes/100 WBC (Bld) 10.9 % 1.7-12.[address] [facility] Neutrophils Auto (Bld) [#/Vo l]on 10-06-2023 Neutrophils (Bld) [#/Vol] 8.4 10 3/uL High 1.4-6.[address] [facility] Neutrophils/100 WBC Auto (Bl d)on 10-06-2023 Neutrophils/100 WBC (Bld) 72.5 % 43.0-75.[address] [facility] No Panel Informationon 10-05 Eosinophils # (Auto) 0.2 10 3/uL 0.0-0.7 [facility] Immature Granulocyte # (Auto) 0.17 10 3/uL High 0.00-0.[address] [facility] Platelet mean volume Auto (B ld) [Entitic vol]on 10-06-2023 Platelet mean volume (Bld) [Entitic vol] 10.3 fL 9.5-13.[address] [facility] Platelets Auto (Bld) [#/Vol] on 10-06-2023 Platelets (Bld) [#/Vol] 233 10 3/uL 150-[address] [facility] RBC Auto (Bld) [#/Vol]on RBC (Bld) [#/Vol] 3.73 10 6/uL Low 4.70-6.10 [facility] Serum or plasma albumin/glob ulin mass ratioon 10-06-2023 Albumin/Globulin [Mass ratio] 0.5 {ratio} [facility] Serum or plasma anion gap de terminationon 10-06-2023 Anion gap [Moles/Vol] 14.1 mmol/L [facility] Basophils Auto (Bld) [#/Vol] on 10-05-2023 Basophils (Bld) [#/Vol] 0.1 10 3/uL 0.0-0.[address] [facility] Basophils/100 WBC Auto (Bld) on 10-05-2023 Basophils/100 WBC (Bld) 0.6 % 0.2-2.[address] [facility] Eosinophils/100 WBC Auto (Bl d)on 10-05-2023 Eosinophils/100 WBC (Bld) 3.3 % 0.9-7.[address] [facility] Erythrocyte distribution wid th Auto (RBC) [Ratio]on 10-05-2023 Erythrocyte distribution width (RBC) [Ratio] 19.6 % High 11.0-15.[address] [facility] Estimated glomerular filtrat ion rate (GFR) non- Americanon 10-05-2023 GFR/1.73 sq M.predicted among non-blacks MDRD (S/P/Bld) [Vol rate/Area] 41 mL/min/{1.73_m2} Low >=[address] [facility] Globulin Calc (S) [Mass/Vol] on 10-05-2023 Globulin (S) [Mass/Vol] 4.7 g/dL [facility] Hematocrit Auto (Bld) [Volum e fraction]on 10-05-2023 Hematocrit (Bld) [Volume fraction] 29.9 % Low 42.0-54.[address] [facility] Hemoglobin [Mass/volume] in Bloodon 10-05-2023 Hemoglobin (Bld) [Mass/Vol] 9.0 g/dL Low 14.0-18.[address] [facility] Guy 10-05-2023 L Specimen: [id number] Received: 10/06/23 Status: COLTON Req Num: [id number] Spec Type: Surgical Subm Dr: Paula Soto DPM, MS Tissues: A DIGIT AMPUTATION (RT 2,3,4 AND 5 METATARSAL AM) Procedures: HE/6, Gross/Micro L4, Decalcification Age/ Patient Sex Location Account Attending Physician Myra Pickard SR 58/M LABELL [id number] Paula Soto DPM, MS SPEC NUM: [id number] RECD: 10/06/23 STATUS: COLTON REQ NUM: [id number] SHAKIRA: 10/05/[address]: Paula Soto DPM, MS ENTERED: 10/06/23 [facility] DR: Jericho Carey SPEC TYPE: Surgical [...] specimen demonstrates firm, yellow spongy bone matrix. Burlapper sections are submitted as follows: A1: Skin and soft tissue margins A2: Second digit, bone margin; #1 proximal phalangeal margin (following decal) A3: Third digit, bone margin; #2 proximal phalangeal margin (following decal) A4: Fourth digit, bone margin; #3 proximal phalangeal margin (following decal) A5: Fifth digit, bone margin; #4 proximal phalangeal margin (following decal) Specimen: [id number] Received: 10/06/23 Status: COLTON Nath Num: [id number] Spec Type: Surgical Subm Dr: Paula Soto,LINDSEY, MS Tissues: A DIGIT AMPUTATION (RT 2,3,4 AND 5 METATARSAL AM) Procedures: HE/6, Gross/Micro L4, Decalcification Patient: Myra Pickard SR [id number] (Continued) Specimen: [id number] Received: 10/06/23 (Continued) Gross Description (Continued) Signed (signature on file) Mike Linn MD 10/10/23 1542 Specimen: [id number] Received: 10/06/23 Status: COLTON Tayler Num: [id number] Spec Type: Surgical Subm Dr: Paula Soto,LINDSEY, MS Tissues: A DIGIT AMPUTATION (RT 2,3,4 AND 5 METATARSAL AM) Procedures: /6, Gross/Micro L4, Decalcification Patient: Myra Pickard SR [id number] (Continued) Specimen: [id number] Received: 10/06/23 (Continued) Gross Description (Continued) A6: Full-thickness section to include skin, underlying soft tissue and bone (following decal) Clinical history: None given CPT Codes 41754 FOREFOOT AND DIGITS Specimen: [id number] Received: 10/06/23 Status: COLTON Nath Num: [id number] Spec Type: Surgical Subm Dr: Paula Soto,LINSDEY, MS Tissues: A DIGIT AMPUTATION (RT 2,3,4 AND 5 METATARSAL AM) Procedures: HE/Ramirez, Gross/Micro L4, Decalcification Patient: Myra Pickard SR [id number] (Continued) Signed (signature on file) Mike Linn MD 10/10/23 1542 Normal [facility] Laboratory - Chemistry and C hemistry - challengeon 10-05-2023 Albumin [Mass/Vol] 2.2 g/dL Low 3.4-5.0 [facility] ALP [Catalytic activity/Vol] 140 U/L High 46-[address] [facility] ALT [Catalytic activity/Vol] 18 U/L 16-[address] [facility] AST [Catalytic activity/Vol] 22 U/L 15-[address] [facility] Bilirubin [Mass/Vol] 0.5 mg/dL 0.2-1.0 [facility] Calcium [Mass/Vol] 9.2 mg/dL 8.5-10.1 [facility] Chloride [Moles/Vol] 100 mmol/L 98-107 [facility] CO2 [Moles/Vol] 22.6 mmol/L 21.0-32.0 [facility] Creatinine [Mass/Vol] 1.74 mg/dL High 0.70-1.30 [facility] GFR/1.73 sq M.predicted MDRD (S/P/Bld) [Vol rate/Area] 49 mL/min/{1.73_m2} Low >=[address] [facility] Glucose [Mass/Vol] 162 mg/dL High 74-106 [facility] Magnesium [Mass/Vol] 1.7 mg/dL Low 1.8-2.4 [facility] Potassium [Moles/Vol] 5.3 mmol/L High 3.5-5.1 [facility] Protein [Mass/Vol] 6.9 g/dL 6.4-8.2 [facility] Sodium [Moles/Vol] 133 mmol/L Low 136-145 [facility] Urea nitrogen [Mass/Vol] 30.0 mg/dL High 7.0-18.[address] [facility] Urea nitrogen/Creatinine [Mass ratio] 17.2 mg/mg [facility] - Hematology and Cell countson 10-05-2023 ESR (Bld) [Velocity] 130 mm/h High <=20 [facility] Immature granulocytes/100 WBC (Bld) 1.3 % High 0.0-0.[address] [facility] Leukocytes [#/volume] correc jorge for nucleated erythrocytes in Blood by Automated counon 10-05-2023 WBC corrected for nucl RBC Auto (Bld) [#/Vol] 12.6 10 3/uL High 4.0-11.[address] [facility] Lymphocytes Auto (Bld) [#/Vo l]on 10-05-2023 Lymphocytes (Bld) [#/Vol] 1.3 10 3/uL 1.2-3.[address] [facility] Lymphocytes/100 WBC Auto (Bl d)on 10-05-2023 Lymphocytes/100 WBC (Bld) 10.1 % Low 20.5-60.[address] [facility] MCH Auto (RBC) [Entitic mass ]on 10-05-2023 MCH (RBC) [Entitic mass] 22.7 pg Low 25.9-34.[address] [facility] MCHC Auto (RBC) [Mass/Vol]on 10-05-2023 MCHC (RBC) [Mass/Vol] 30.1 g/dL 29.9-35.2 [facility] MCV Auto (RBC) [Entitic vol] on 10-05-2023 MCV (RBC) [Entitic vol] 75.3 fL Low 80.0-94.[address] [facility] Monocytes Auto (Bld) [#/Vol] on 10-05-2023 Monocytes (Bld) [#/Vol] 1.4 10 3/uL High 0.3-0.[address] [facility] Monocytes/100 WBC Auto (Bld) on 10-05-2023 Monocytes/100 WBC (Bld) 10.9 % 1.7-12.[address] [facility] Neutrophils Auto (Bld) [#/Vo l]on 10-05-2023 Neutrophils (Bld) [#/Vol] 9.3 10 3/uL High 1.4-6.[address] [facility] Neutrophils/100 WBC Auto (Bl d)on 10-05-2023 Neutrophils/100 WBC (Bld) 73.8 % 43.0-75.[address] [facility] No Panel Informationon 10-04 Eosinophils # (Auto) 0.4 10 3/uL 0.0-0.7 [facility] Immature Granulocyte # (Auto) 0.16 10 3/uL High 0.00-0.[address] [facility] Platelet mean volume Auto (B ld) [Entitic vol]on 10-05-2023 Platelet mean volume (Bld) [Entitic vol] 11.3 fL 9.5-13.[address] [facility] Platelets Auto (Bld) [#/Vol] on 10-05-2023 Platelets (Bld) [#/Vol] 203 10 3/uL 150-[address] [facility] RBC Auto (Bld) [#/Vol]on RBC (Bld) [#/Vol] 3.97 10 6/uL Low 4.70-6.10 [facility] Serum or plasma albumin/glob ulin mass ratioon 10-05-2023 Albumin/Globulin [Mass ratio] 0.5 {ratio} [facility] Serum or plasma anion gap de terminationon 10-05-2023 Anion gap [Moles/Vol] 15.7 mmol/L [facility] Basophils Auto (Bld) [#/Vol] on 10-04-2023 Basophils (Bld) [#/Vol] 0.1 10 3/uL 0.0-0.[address] [facility] Basophils/100 WBC Auto (Bld) on 10-04-2023 Basophils/100 WBC (Bld) 0.5 % 0.2-2.[address] [facility] Eosinophils/100 WBC Auto (Bl d)on 10-04-2023 Eosinophils/100 WBC (Bld) 3.6 % 0.9-7.[address] [facility] Erythrocyte distribution wid th Auto (RBC) [Ratio]on 10-04-2023 Erythrocyte distribution width (RBC) [Ratio] 19.6 % High 11.0-15.[address] [facility] Estimated glomerular filtrat ion rate (GFR) non- Americanon 10-04-2023 GFR/1.73 sq M.predicted among non-blacks MDRD (S/P/Bld) [Vol rate/Area] 44 mL/min/{1.73_m2} Low >=[address] [facility] Globulin Calc (S) [Mass/Vol] on 10-04-2023 Globulin (S) [Mass/Vol] 4.3 g/dL [facility] Hematocrit Auto (Bld) [Volum e fraction]on 10-04-2023 Hematocrit (Bld) [Volume fraction] 26.8 % Low 42.0-54.[address] [facility] Hemoglobin [Mass/volume] in Bloodon 10-04-2023 Hemoglobin (Bld) [Mass/Vol] 7.9 g/dL Low 14.0-18.[address] [facility] Laboratory - Chemistry and C hemistry - challengeon 10-04-2023 Albumin [Mass/Vol] 1.9 g/dL Low 3.4-5.0 [facility] ALP [Catalytic activity/Vol] 135 U/L High 46-[address] [facility] ALT [Catalytic activity/Vol] 16 U/L 16-[address] [facility] AST [Catalytic activity/Vol] 19 U/L 15-[address] [facility] Bilirubin [Mass/Vol] 0.4 mg/dL 0.2-1.0 [facility] Calcium [Mass/Vol] 7.8 mg/dL Low 8.5-10.1 [facility] Chloride [Moles/Vol] 102 mmol/L 98-107 [facility] CO2 [Moles/Vol] 25.0 mmol/L 21.0-32.0 [facility] Creatinine [Mass/Vol] 1.61 mg/dL High 0.70-1.30 [facility] GFR/1.73 sq M.predicted MDRD (S/P/Bld) [Vol rate/Area] 54 mL/min/{1.73_m2} Low >=[address] [facility] Glucose [Mass/Vol] 136 mg/dL High 74-106 [facility] Magnesium [Mass/Vol] 1.7 mg/dL Low 1.8-2.4 [facility] Potassium [Moles/Vol] 5.1 mmol/L 3.5-5.1 [facility] Protein [Mass/Vol] 6.2 g/dL Low 6.4-8.2 [facility] Sodium [Moles/Vol] 134 mmol/L Low 136-145 [facility] Urea nitrogen [Mass/Vol] 25.0 mg/dL High 7.0-18.[address] [facility] Urea nitrogen/Creatinine [Mass ratio] 15.5 mg/mg [facility] Laboratory - Hematology and Cell countson 10-04-2023 ESR (Bld) [Velocity] 117 mm/h High <=20 [facility] Immature granulocytes/100 WBC (Bld) 0.9 % High 0.0-0.[address] [facility] Leukocytes [#/volume] correc jorge for nucleated erythrocytes in Blood by Automated counon 10-04-2023 WBC corrected for nucl RBC Auto (Bld) [#/Vol] 11.5 10 3/uL High 4.0-11.[address] [facility] Lymphocytes Auto (Bld) [#/Vo l]on 10-04-2023 Lymphocytes (Bld) [#/Vol] 1.3 10 3/uL 1.2-3.[address] [facility] Lymphocytes/100 WBC Auto (Bl d)on 10-04-2023 Lymphocytes/100 WBC (Bld) 10.9 % Low 20.5-60.[address] [facility] MCH Auto (RBC) [Entitic mass ]on 10-04-2023 MCH (RBC) [Entitic mass] 22.4 pg Low 25.9-34.[address] [facility] MCHC Auto (RBC) [Mass/Vol]on 10-04-2023 MCHC (RBC) [Mass/Vol] 29.5 g/dL Low 29.9-35.2 [facility] MCV Auto (RBC) [Entitic vol] on 10-04-2023 MCV (RBC) [Entitic vol] 75.9 fL Low 80.0-94.[address] [facility] Monocytes Auto (Bld) [#/Vol] on 10-04-2023 Monocytes (Bld) [#/Vol] 1.4 10 3/uL High 0.3-0.[address] [facility] Monocytes/100 WBC Auto (Bld) on 10-04-2023 Monocytes/100 WBC (Bld) 12.4 % High 1.7-12.[address] [facility] Neutrophils Auto (Bld) [#/Vo l]on 10-04-2023 Neutrophils (Bld) [#/Vol] 8.3 10 3/uL High 1.4-6.[address] [facility] Neutrophils/100 WBC Auto (Bl d)on 10-04-2023 Neutrophils/100 WBC (Bld) 71.7 % 43.0-75.[address] [facility] No Panel Informationon 10-03 Eosinophils # (Auto) 0.4 10 3/uL 0.0-0.7 [facility] Immature Granulocyte # (Auto) 0.10 10 3/uL High 0.00-0.[address] [facility] Platelet mean volume Auto (B ld) [Entitic vol]on 10-04-2023 Platelet mean volume (Bld) [Entitic vol] 11.5 fL 9.5-13.[address] [facility] Platelets Auto (Bld) [#/Vol] on 10-04-2023 Platelets (Bld) [#/Vol] 154 10 3/uL 150-[address] [facility] RBC Auto (Bld) [#/Vol]on RBC (Bld) [#/Vol] 3.53 10 6/uL Low 4.70-6.10 [facility] Serum or plasma albumin/glob ulin mass ratioon 10-04-2023 Albumin/Globulin [Mass ratio] 0.4 {ratio} [facility] Serum or plasma anion gap de terminationon 10-04-2023 Anion gap [Moles/Vol] 12.1 mmol/L Fi [facility] Basophils Auto (Bld) [#/Vol] on 10-03-2023 Basophils (Bld) [#/Vol] 0.1 10 3/uL 0.0-0.[address] [facility] Basophils/100 WBC Auto (Bld) on 10-03-2023 Basophils/100 WBC (Bld) 0.7 % 0.2-2.[address] [facility] Eosinophils/100 WBC Auto (Bl d)on 10-03-2023 Eosinophils/100 WBC (Bld) 2.7 % 0.9-7.[address] [facility] Erythrocyte distribution wid th Auto (RBC) [Ratio]on 10-03-2023 Erythrocyte distribution width (RBC) [Ratio] 19.2 % High 11.0-15.[address] [facility] Estimated glomerular filtrat ion rate (GFR) non- Americanon 10-03-2023 GFR/1.73 sq M.predicted among non-blacks MDRD (S/P/Bld) [Vol rate/Area] 46 mL/min/{1.73_m2} Low >=[address] [facility] Globulin Calc (S) [Mass/Vol] on 10-03-2023 Globulin (S) [Mass/Vol] 4.1 g/dL [facility] Hematocrit Auto (Bld) [Volum e fraction]on 10-03-2023 Hematocrit (Bld) [Volume fraction] 26.4 % Low 42.0-54.[address] [facility] Hemoglobin [Mass/volume] in Bloodon 10-03-2023 Hemoglobin (Bld) [Mass/Vol] 8.1 g/dL Low 14.0-18.[address] [facility] Laboratory - Chemistry and C hemistry - challengeon 10-03-2023 Albumin [Mass/Vol] 1.9 g/dL Low 3.4-5.0 [facility] ALP [Catalytic activity/Vol] 140 U/L High 46-[address] [facility] ALT [Catalytic activity/Vol] 17 U/L 16-[address] [facility] AST [Catalytic activity/Vol] 21 U/L 15-[address] [facility] Bilirubin [Mass/Vol] 0.3 mg/dL 0.2-1.0 [facility] Calcium [Mass/Vol] 6.7 mg/dL Low 8.5-10.1 [facility] Chloride [Moles/Vol] 101 mmol/L 98-107 [facility] CO2 [Moles/Vol] 23.9 mmol/L 21.0-32.0 [facility] Creatinine [Mass/Vol] 1.57 mg/dL High 0.70-1.30 [facility] GFR/1.73 sq M.predicted MDRD (S/P/Bld) [Vol rate/Area] 55 mL/min/{1.73_m2} Low >=[address] [facility] Glucose [Mass/Vol] 142 mg/dL High 74-106 [facility] Magnesium [Mass/Vol] 1.3 mg/dL Low 1.8-2.4 [facility] Potassium [Moles/Vol] 4.8 mmol/L 3.5-5.1 [facility] Protein [Mass/Vol] 6.0 g/dL Low 6.4-8.2 [facility] Sodium [Moles/Vol] 134 mmol/L Low 136-145 [facility] Urea nitrogen [Mass/Vol] 23.0 mg/dL High 7.0-18.[address] [facility] Urea nitrogen/Creatinine [Mass ratio] 14.6 mg/mg [facility] Laboratory - Hematology and Cell countson 10-03-2023 ESR (Bld) [Velocity] mm/h High <=20 [facility] Immature granulocytes/100 WBC (Bld) 1.0 % High 0.0-0.[address] [facility] Leukocytes [#/volume] correc jorge for nucleated erythrocytes in Blood by Automated counon 10-03-2023 WBC corrected for nucl RBC Auto (Bld) [#/Vol] 11.6 10 3/uL High 4.0-11.[address] [facility] Lymphocytes Auto (Bld) [#/Vo l]on 10-03-2023 Lymphocytes (Bld) [#/Vol] 1.4 10 3/uL 1.2-3.[address] [facility] Lymphocytes/100 WBC Auto (Bl d)on 10-03-2023 Lymphocytes/100 WBC (Bld) 12.1 % Low 20.5-60.[address] [facility] MCH Auto (RBC) [Entitic mass ]on 10-03-2023 MCH (RBC) [Entitic mass] 23.2 pg Low 25.9-34.[address] [facility] MCHC Auto (RBC) [Mass/Vol]on 10-03-2023 MCHC (RBC) [Mass/Vol] 30.7 g/dL 29.9-35.2 [facility] MCV Auto (RBC) [Entitic vol] on 10-03-2023 MCV (RBC) [Entitic vol] 75.6 fL Low 80.0-94.[address] [facility] Monocytes Auto (Bld) [#/Vol] on 10-03-2023 Monocytes (Bld) [#/Vol] 1.3 10 3/uL High 0.3-0.[address] [facility] Monocytes/100 WBC Auto (Bld) on 10-03-2023 Monocytes/100 WBC (Bld) 10.8 % 1.7-12.[address] [facility] Neutrophils Auto (Bld) [#/Vo l]on 10-03-2023 Neutrophils (Bld) [#/Vol] 8.5 10 3/uL High 1.4-6.[address] [facility] Neutrophils/100 WBC Auto (Bl d)on 10-03-2023 Neutrophils/100 WBC (Bld) 72.7 % 43.0-75.[address] [facility] No Panel Informationon 10-02 Eosinophils # (Auto) 0.3 10 3/uL 0.0-0.7 [facility] Immature Granulocyte # (Auto) 0.12 10 3/uL High 0.00-0.[address] [facility] Platelet mean volume Auto (B ld) [Entitic vol]on 10-03-2023 Platelet mean volume (Bld) [Entitic vol] 11.3 fL 9.5-13.[address] [facility] Platelets Auto (Bld) [#/Vol] on 10-03-2023 Platelets (Bld) [#/Vol] 141 10 3/uL Low 150-[address] [facility] RBC Auto (Bld) [#/Vol]on RBC (Bld) [#/Vol] 3.49 10 6/uL Low 4.70-6.10 [facility] Serum or plasma albumin/glob ulin mass ratioon 10-03-2023 Albumin/Globulin [Mass ratio] 0.5 {ratio} [facility] Serum or plasma anion gap de terminationon 10-03-2023 Anion gap [Moles/Vol] 13.9 mmol/L [facility] Basophils Auto (Bld) [#/Vol] on 10-02-2023 Basophils (Bld) [#/Vol] 0.0 10 3/uL 0.0-0.[address] [facility] Basophils/100 WBC Auto (Bld) on 10-02-2023 Basophils/100 WBC (Bld) 0.4 % 0.2-2.[address] [facility] Eosinophils/100 WBC Auto (Bl d)on 10-02-2023 Eosinophils/100 WBC (Bld) 2.2 % 0.9-7.[address] [facility] Erythrocyte distribution wid th Auto (RBC) [Ratio]on 10-02-2023 Erythrocyte distribution width (RBC) [Ratio] 19.3 % High 11.0-15.[address] [facility] Estimated glomerular filtrat ion rate (GFR) non- Americanon 10-02-2023 GFR/1.73 sq M.predicted among non-blacks MDRD (S/P/Bld) [Vol rate/Area] 41 mL/min/{1.73_m2} Low >=[address] [facility] Globulin Calc (S) [Mass/Vol] on 10-02-2023 Globulin (S) [Mass/Vol] 4.2 g/dL [facility] Hematocrit Auto (Bld) [Volum e fraction]on 10-02-2023 Hematocrit (Bld) [Volume fraction] 26.1 % Low 42.0-54.[address] [facility] Hemoglobin [Mass/volume] in Bloodon 10-02-2023 Hemoglobin (Bld) [Mass/Vol] 7.8 g/dL Low 14.0-18.[address] [facility] Guy 10-02-2023 L Specimen: [id number] Received: 10/03/23 [id number] Spec Type: Surgical Subm Dr: Paula Soto DPM, MS Tissues: A DIGIT AMPUTATION (FIRST METATARSAL RT FOOT) Procedures: HE/2, Gross/Micro L4, Decalcification Age/ Patient Sex Location Account Attending Physician Myra Pickard SR 58/M LABELL [id number] Paula Soto DPM, MS SPEC NUM: [id number] RECD: 10/03/23 STATUS: [facility] NUM: [id number] SHAKIRA: 10/02/[address]: Paula Soto DPM, MS ENTERED: 10/03/[address]: Aurelio,Jerich[place] SPEC TYPE: Surgical DEPT: [...] firm yellow- pink spongy bone matrix. A motor vehicle representative longitudinal section is bisected and submitted following decalcification in cassettes A1?A2. Clinical history: Right diabetic foot infection CPT Codes 35379 Specimen: [id number] Received: 10/03/23 Status: [facility] Num: [id number] Spec Type: Surgical Subm Dr: Paula Soto DPM, MS Tissues: A DIGIT AMPUTATION (FIRST METATARSAL RT FOOT) Procedures: HE/2, Gross/Micro L4, Decalcification Patient: Myra Pickard SR [id number] (Continued) Signed (signature on file) Mike Linn MD 10/05/23 1426 Normal [facility] Laboratory - Chemistry and C hemistry - challengeon 10-02-2023 Albumin [Mass/Vol] 2.1 g/dL Low 3.4-5.0 [facility] ALP [Catalytic activity/Vol] 131 U/L High 46-[address] [facility] ALT [Catalytic activity/Vol] 17 U/L 16-[address] [facility] AST [Catalytic activity/Vol] 13 U/L Low 15-[address] [facility] Bilirubin [Mass/Vol] 0.3 mg/dL 0.2-1.0 [facility] Calcium [Mass/Vol] 6.6 mg/dL Low 8.5-10.1 [facility] Chloride [Moles/Vol] 105 mmol/L 98-107 [facility] CO2 [Moles/Vol] 24.3 mmol/L 21.0-32.0 [facility] Creatinine [Mass/Vol] 1.72 mg/dL High 0.70-1.30 [facility] GFR/1.73 sq M.predicted MDRD (S/P/Bld) [Vol rate/Area] 50 mL/min/{1.73_m2} Low >=[address] [facility] Glucose [Mass/Vol] 156 mg/dL High 74-106 [facility] Magnesium [Mass/Vol] 1.5 mg/dL Low 1.8-2.4 [facility] Potassium [Moles/Vol] 4.0 mmol/L 3.5-5.1 [facility] Protein [Mass/Vol] 6.3 g/dL Low 6.4-8.2 [facility] Sodium [Moles/Vol] 139 mmol/L 136-145 [facility] Urea nitrogen [Mass/Vol] 27.0 mg/dL High 7.0-18.[address] [facility] Urea nitrogen/Creatinine [Mass ratio] 15.7 mg/mg [facility] Laboratory - Hematology and Cell countson 10-02-2023 Immature granulocytes/100 WBC (Bld) 0.4 % 0.0-0.[address] [facility] ESR (Bld) [Velocity] 110 mm/h High <=20 [facility] Laboratory - Microbiology an d Antimicrobial susceptibilityOrdered By: Truman Bryant on 10-02-2023 Microscopic observation Gram stain Nom (Unsp spec) [facility] Leukocytes [#/volume] correc jorge for nucleated erythrocytes in Blood by Automated counon 10-02-2023 WBC corrected for nucl RBC Auto (Bld) [#/Vol] 8.5 10 3/uL 4.0-11.[address] [facility] Lymphocytes Auto (Bld) [#/Vo l]on 10-02-2023 Lymphocytes (Bld) [#/Vol] 1.5 10 3/uL 1.2-3.[address] [facility] Lymphocytes/100 WBC Auto (Bl d)on 10-02-2023 Lymphocytes/100 WBC (Bld) 17.3 % Low 20.5-60.[address] [facility] MCH Auto (RBC) [Entitic mass ]on 10-02-2023 MCH (RBC) [Entitic mass] 22.5 pg Low 25.9-34.[address] [facility] MCHC Auto (RBC) [Mass/Vol]on 10-02-2023 MCHC (RBC) [Mass/Vol] 29.9 g/dL 29.9-35.2 [facility] MCV Auto (RBC) [Entitic vol] on 10-02-2023 MCV (RBC) [Entitic vol] 75.2 fL Low 80.0-94.[address] [facility] Monocytes Auto (Bld) [#/Vol] on 10-02-2023 Monocytes (Bld) [#/Vol] 0.8 10 3/uL 0.3-0.[address] [facility] Monocytes/100 WBC Auto (Bld) on 10-02-2023 Monocytes/100 WBC (Bld) 9.1 % 1.7-12.[address] [facility] Neutrophils Auto (Bld) [#/Vo l]on 10-02-2023 Neutrophils (Bld) [#/Vol] 6.0 10 3/uL 1.4-6.[address] [facility] Neutrophils/100 WBC Auto (Bl d)on 10-02-2023 Neutrophils/100 WBC (Bld) 70.6 % 43.0-75.[address] [facility] No Panel Informationon 10-01 Eosinophils # (Auto) 0.2 10 3/uL 0.0-0.7 Fir [facility] Immature Granulocyte # (Auto) 0.03 10 3/uL 0.00-0.[address] [facility] Fungal Smear Result [facility] Miscellaneous Test Comment See comment [facility] Comment on above: Specimen Source: JONO TRT - Foot Right - Foot Rt - [id number] No Panel InformationOrdered By: Truman Bryant on 10-02-[address] [facility] No Panel InformationOrdered By: Paula Soto on 10-02-2023 Acid Fast Smear [facility] AFB Specimen Processing [facility] Platelet mean volume Auto (B ld) [Entitic vol]on 10-02-2023 Platelet mean volume (Bld) [Entitic vol] 10.6 fL 9.5-13.[address] [facility] Platelets Auto (Bld) [#/Vol] on 10-02-2023 Platelets (Bld) [#/Vol] 142 10 3/uL Low 150-[address] [facility] RBC Auto (Bld) [#/Vol]on RBC (Bld) [#/Vol] 3.47 10 6/uL Low 4.70-6.10 [facility] Serum or plasma albumin/glob ulin mass ratioon 10-02-2023 Albumin/Globulin [Mass ratio] 0.5 {ratio} [facility] Serum or plasma anion gap de terminationon 10-02-2023 Anion gap [Moles/Vol] 13.7 mmol/L [facility] Basophils Auto (Bld) [#/Vol] on 10-01-2023 Basophils (Bld) [#/Vol] 0.0 10 3/uL 0.0-0.[address] [facility] Basophils/100 WBC Auto (Bld) on 10-01-2023 Basophils/100 WBC (Bld) 0.4 % 0.2-2.[address] [facility] Eosinophils/100 WBC Auto (Bl d)on 10-01-2023 Eosinophils/100 WBC (Bld) 1.7 % 0.9-7.[address] [facility] Erythrocyte distribution wid th Auto (RBC) [Ratio]on 10-01-2023 Erythrocyte distribution width (RBC) [Ratio] 18.5 % High 11.0-15.[address] [facility] Estimated glomerular filtrat ion rate (GFR) non- Americanon 10-01-2023 GFR/1.73 sq M.predicted among non-blacks MDRD (S/P/Bld) [Vol rate/Area] 27 mL/min/{1.73_m2} Low >=[address] [facility] Globulin Calc (S) [Mass/Vol] on 10-01-2023 Globulin (S) [Mass/Vol] 4.0 g/dL [facility] Hematocrit Auto (Bld) [Volum e fraction]on 10-01-2023 Hematocrit (Bld) [Volume fraction] 26.5 % Low 42.0-54.[address] [facility] Hemoglobin [Mass/volume] in Bloodon 10-01-2023 Hemoglobin (Bld) [Mass/Vol] 8.0 g/dL Low 14.0-18.[address] [facility] Laboratory - Chemistry and C hemistry - challengeon 10-01-2023 Lactate [Moles/Vol] 1.8 mmol/L 0.4-2.0 [facility] Albumin [Mass/Vol] 1.9 g/dL Low 3.4-5.0 [facility] ALP [Catalytic activity/Vol] 113 U/L 46-[address] [facility] ALT [Catalytic activity/Vol] 17 U/L 16-[address] [facility] AST [Catalytic activity/Vol] 14 U/L Low 15-[address] [facility] Bilirubin [Mass/Vol] 0.3 mg/dL 0.2-1.0 [facility] Calcium [Mass/Vol] 5.7 mg/dL Low 8.5-10.1 [facility] Comment on above: RESULTS CALLED TO Patricio Genao(RN)@BY SKY AndersonT at 0619 Chloride [Moles/Vol] 102 mmol/L 98-107 [facility] CO2 [Moles/Vol] 20.4 mmol/L Low 21.0-32.0 [facility] Creatinine [Mass/Vol] 2.46 mg/dL High 0.70-1.30 [facility] GFR/1.73 sq M.predicted MDRD (S/P/Bld) [Vol rate/Area] 33 mL/min/{1.73_m2} Low >=[address] [facility] Glucose [Mass/Vol] 67 mg/dL Low 74-106 [facility] Magnesium [Mass/Vol] 0.8 mg/dL Low 1.8-2.4 [facility] Comment on above: RESULTS CALLED TO Patricio CORREA)@BY SOFI[address] Way at 0601 Potassium [Moles/Vol] 3.1 mmol/L Low 3.5-5.1 [facility] Protein [Mass/Vol] 5.9 g/dL Low 6.4-8.2 [facility] Sodium [Moles/Vol] 138 mmol/L 136-145 [facility] Urea nitrogen [Mass/Vol] 28.0 mg/dL High 7.0-18.[address] [facility] Urea nitrogen/Creatinine [Mass ratio] 11.4 mg/mg [facility] Laboratory - Hematology and Cell countson 10-01-2023 ESR (Bld) [Velocity] 96 mm/h High <=20 [facility] Immature granulocytes/100 WBC (Bld) 0.6 % High 0.0-0.[address] [facility] Leukocytes [#/volume] correc jorge for nucleated erythrocytes in Blood by Automated counon 10-01-2023 WBC corrected for nucl RBC Auto (Bld) [#/Vol] 10.0 10 3/uL 4.0-11.[address] [facility] Lymphocytes Auto (Bld) [#/Vo l]on 10-01-2023 Lymphocytes (Bld) [#/Vol] 1.3 10 3/uL 1.2-3.[address] [facility] Lymphocytes/100 WBC Auto (Bl d)on 10-01-2023 Lymphocytes/100 WBC (Bld) 12.8 % Low 20.5-60.[address] [facility] MCH Auto (RBC) [Entitic mass ]on 10-01-2023 MCH (RBC) [Entitic mass] 22.4 pg Low 25.9-34.[address] [facility] MCHC Auto (RBC) [Mass/Vol]on 10-01-2023 MCHC (RBC) [Mass/Vol] 30.2 g/dL 29.9-35.2 [facility] MCV Auto (RBC) [Entitic vol] on 10-01-2023 MCV (RBC) [Entitic vol] 74.2 fL Low 80.0-94.[address] [facility] Monocytes Auto (Bld) [#/Vol] on 10-01-2023 Monocytes (Bld) [#/Vol] 0.7 10 3/uL 0.3-0.[address] [facility] Monocytes/100 WBC Auto (Bld) on 10-01-2023 Monocytes/100 WBC (Bld) 6.9 % 1.7-12.[address] [facility] Neutrophils Auto (Bld) [#/Vo l]on 10-01-2023 Neutrophils (Bld) [#/Vol] 7.8 10 3/uL High 1.4-6.[address] [facility] Neutrophils/100 WBC Auto (Bl d)on 10-01-2023 Neutrophils/100 WBC (Bld) 77.6 % High 43.0-75.[address] [facility] No Panel Informationon 09-30 C-Reactive Protein, Quantitative 10.58 mg/dL High <=0.[address] [facility] Eosinophils # (Auto) 0.2 10 3/uL 0.0-0.7 [facility] Immature Granulocyte # (Auto) 0.06 10 3/uL High 0.00-0.[address] [facility] Troponin I High Sensitivity 8.3 pg/mL 4.0-76.[address] [facility] Comment on above: CUT-OFF POINTS HAVE [...] CO2 30.4 mm[Hg] Low 40.0-52.[address] [facility] Venous Blood pH 7.421 7.330-7.[address] [facility] Platelet mean volume Auto (B ld) [Entitic vol]on 10-01-2023 Platelet mean volume (Bld) [Entitic vol] 11.2 fL 9.5-13.[address] [facility] Platelets Auto (Bld) [#/Vol] on 10-01-2023 Platelets (Bld) [#/Vol] 164 10 3/uL 150-[address] [facility] RBC Auto (Bld) [#/Vol]on RBC (Bld) [#/Vol] 3.57 10 6/uL Low 4.70-6.10 [facility] Serum or plasma albumin/glob ulin mass ratioon 10-01-2023 Albumin/Globulin [Mass ratio] 0.5 {ratio} [facility] Serum or plasma anion gap de terminationon 10-01-2023 Anion gap [Moles/Vol] 18.7 mmol/L [facility] Automated epithelial cells c ount in urine sediment (number/area)on 09-30-2023 Epithelial cells Auto (Urine sed) [#/Area] NONE SEEN #/LPF NONE/RARE [facility] Automated leukocytes count i n urine sediment (number/area)on 09-30-2023 WBC Auto (Urine sed) [#/Area] NONE SEEN #/HPF 0-[address] [facility] Automated urine specific gra vity by refractometryon 09-30-2023 Specific gravity Refractometry automated (U) [Rel density] <=1.005 Abnormal 1.005-1.[address] [facility] Basophils Auto (Bld) [#/Vol] on 09-30-2023 Basophils (Bld) [#/Vol] 0.1 10 3/uL 0.0-0.[address] [facility] Basophils/100 WBC Auto (Bld) on 09-30-2023 Basophils/100 WBC (Bld) 0.4 % 0.2-2.[address] [facility] Bilirubin Auto test strip (U ) [Mass/Vol]on 09-30-2023 Bilirubin (U) [Mass/Vol] Negative NEGATIVE [facility] Casts typing in urine sedime nt by light microscopyon 09-30-2023 Casts LM Nom (Urine sed) NONE SEEN #/LPF NONE SEEN [facility] Color Auto (U)on 09-30-2023 Color (U) LT. YELLOW YELLOW [facility] Eosinophils/100 WBC Auto (Bl d)on 09-30-2023 Eosinophils/100 WBC (Bld) 1.4 % 0.9-7.[address] [facility] Erythrocyte distribution wid th Auto (RBC) [Ratio]on 09-30-2023 Erythrocyte distribution width (RBC) [Ratio] 19.0 % High 11.0-15.[address] [facility] Estimated glomerular filtrat ion rate (GFR) non- Americanon 09-30-2023 GFR/1.73 sq M.predicted among non-blacks MDRD (S/P/Bld) [Vol rate/Area] 19 mL/min/{1.73_m2} Low >=[address] [facility] Globulin Calc (S) [Mass/Vol] on 09-30-2023 Globulin (S) [Mass/Vol] 4.8 g/dL [facility] Hematocrit Auto (Bld) [Volum e fraction]on 09-30-2023 Hematocrit (Bld) [Volume fraction] 32.9 % Low 42.0-54.[address] [facility] Hemoglobin [Mass/volume] in Bloodon 09-30-2023 Hemoglobin (Bld) [Mass/Vol] 10.0 g/dL Low 14.0-18.[address] [facility] INR in Platelet poor plasma by Coagulation assayon 09-30-2023 INR Coag (PPP) [Relative time] 1.23 {INR} [facility] Comment on above: DESIRED INR:2.0-3.0 CONDITIONS NOT LISTED BELOW2.5-3.5 FOR PROSTHETIC HEART VALVE REPLACEMENT2.5-3.5 RECURRENT THROMBOSIS Ketones Auto test strip (U) [Mass/Vol]on 09-30-2023 Ketones (U) [Mass/Vol] Negative NEGATIVE [facility] - Chemistry and C hemistry - challengeon 09-30-2023 Lactate [Moles/Vol] 4.2 mmol/L High 0.4-2.0 [facility] Comment on above: RESULTS CALLED TO Patricio Genao (RN)@BY SOFI[address] Way at 2312 Albumin [Mass/Vol] 2.4 g/dL Low 3.4-5.0 [facility] ALP [Catalytic activity/Vol] 145 U/L High 46-[address] [facility] ALT [Catalytic activity/Vol] 17 U/L 16-[address] [facility] AST [Catalytic activity/Vol] 21 U/L 15-[address] [facility] Bilirubin [Mass/Vol] 0.4 mg/dL 0.2-1.0 [facility] Calcium [Mass/Vol] 5.8 mg/dL Low 8.5-10.1 [facility] Comment on above: RESULTS CALLED TO KELECHI CASTANON @BY Verona Hanson at 1645 Chloride [Moles/Vol] 97 mmol/L Low 98-107 [facility] CO2 [Moles/Vol] 18.3 mmol/L Low 21.0-32.0 [facility] Creatinine [Mass/Vol] 3.43 mg/dL High 0.70-1.30 [facility] GFR/1.73 sq M.predicted MDRD (S/P/Bld) [Vol rate/Area] 22 mL/min/{1.73_m2} Low >=[address] [facility] Glucose [Mass/Vol] 208 mg/dL High 74-106 [facility] Magnesium [Mass/Vol] 0.5 mg/dL Low 1.8-2.4 [facility] Comment on above: RESULTS CALLED TO Kelechi Casatnon @BY Marybel Hawkins MLT [id number] Natriuretic peptide B (Bld) [Mass/Vol] 611.0 pg/mL <=900.[address] [facility] Potassium [Moles/Vol] 3.9 mmol/L 3.5-5.1 [facility] Protein [Mass/Vol] 7.2 g/dL 6.4-8.2 [facility] Sodium [Moles/Vol] 137 mmol/L 136-145 [facility] Urea nitrogen [Mass/Vol] 34.0 mg/dL High 7.0-18.[address] [facility] Urea nitrogen/Creatinine [Mass ratio] 9.9 mg/mg [facility] Laboratory - Hematology and Cell countson 09-30-2023 ESR (Bld) [Velocity] 130 mm/h High <=20 [facility] Immature granulocytes/100 WBC (Bld) 0.6 % High 0.0-0.[address] [facility] Leukocytes [#/volume] correc jorge for nucleated erythrocytes in Blood by Automated counon 09-30-2023 WBC corrected for nucl RBC Auto (Bld) [#/Vol] 13.9 10 3/uL High 4.0-11.[address] [facility] Lymphocytes Auto (Bld) [#/Vo l]on 09-30-2023 Lymphocytes (Bld) [#/Vol] 1.4 10 3/uL 1.2-3.[address] [facility] Lymphocytes/100 WBC Auto (Bl d)on 09-30-2023 Lymphocytes/100 WBC (Bld) 10.1 % Low 20.5-60.[address] [facility] MCH Auto (RBC) [Entitic mass ]on 09-30-2023 MCH (RBC) [Entitic mass] 22.7 pg Low 25.9-34.[address] [facility] MCHC Auto (RBC) [Mass/Vol]on 09-30-2023 MCHC (RBC) [Mass/Vol] 30.4 g/dL 29.9-35.2 [facility] MCV Auto (RBC) [Entitic vol] on 09-30-2023 MCV (RBC) [Entitic vol] 74.6 fL Low 80.0-94.[address] [facility] Monocytes Auto (Bld) [#/Vol] on 09-30-2023 Monocytes (Bld) [#/Vol] 0.9 10 3/uL High 0.3-0.[address] [facility] Monocytes/100 WBC Auto (Bld) on 09-30-2023 Monocytes/100 WBC (Bld) 6.7 % 1.7-12.[address] [facility] Mucus LM Ql (Urine sed)on Mucus Ql (Urine sed) NONE SEEN NONE SEEN [facility] Neutrophils Auto (Bld) [#/Vo l]on 09-30-2023 Neutrophils (Bld) [#/Vol] 11.2 10 3/uL High 1.4-6.[address] [facility] Neutrophils/100 WBC Auto (Bl d)on 09-30-2023 Neutrophils/100 WBC (Bld) 80.8 % High 43.0-75.[address] [facility] No Panel Informationon 09-29 Troponin I High Sensitivity 7.9 pg/mL 4.0-76.[address] [facility] Comment on above: CUT-OFF POINTS HAVE [...] CO2 29.6 mm[Hg] Low 40.0-52.[address] [facility] Venous Blood pH 7.405 7.330-7.[address] [facility] Urine Culture Reflexed NO [facility] C-Reactive Protein, Quantitative 14.76 mg/dL High <=0.[address] [facility] Eosinophils # (Auto) 0.2 10 3/uL 0.0-0.7 Fir [facility] Immature Granulocyte # (Auto) 0.09 10 3/uL High 0.00-0.[address] [facility] No Panel InformationOrdered By: Chandrika Castanon on 09-30-2023 Blood Culture [address] [facility] Wound Culture [facility] Blood Culture [address] [facility] Platelet mean volume Auto (B ld) [Entitic vol]on 09-30-2023 Platelet mean volume (Bld) [Entitic vol] 10.9 fL 9.5-13.[address] [facility] Platelets Auto (Bld) [#/Vol] on 09-30-2023 Platelets (Bld) [#/Vol] 227 10 3/uL 150-[address] [facility] Protein Auto test strip (U) [Mass/Vol]on 09-30-2023 Protein (U) [Mass/Vol] Negative NEG/TRACE Fi [facility] Prothrombin time (PT)on 09-04 PT Coag (PPP) [Time] 12.9 s High 9.0-11.6 [facility] RBC Auto (Bld) [#/Vol]on RBC (Bld) [#/Vol] 4.41 10 6/uL Low 4.70-6.10 [facility] Serum or plasma albumin/glob ulin mass ratioon 09-30-2023 Albumin/Globulin [Mass ratio] 0.5 {ratio} [facility] Serum or plasma anion gap de terminationon 09-30-2023 Anion gap [Moles/Vol] 25.6 mmol/L Fi [facility] Specific gravity Auto test s trip (U) [Rel density]on 09-30-2023 Specific gravity (U) [Rel density] CLEAR CLEAR [facility] Urine bacteria detection by automated methodon 09-30-2023 Bacteria Auto Ql (U) NONE SEEN #/HPF NONE SEEN [facility] Urine glucose measurement by test strip (mass/volume)on 09-30-2023 Glucose Test strip (U) [Mass/Vol] 500 mg/dL Abnormal NEGATIVE [facility] Urine hemoglobin detection b y automated test stripon 09-30-2023 Hemoglobin Auto test strip Ql (U) TRACE-I NEGATIVE [facility] Urine nitrite detection by a utomated test stripon 09-30-2023 Nitrite Auto test strip Ql (U) Negative NEGATIVE [facility] Urine sediment crystal ident ification by light microscopyon 09-30-2023 Crystals LM Nom (Urine sed) None Seen #/HPF None Seen [facility] Urine sediment leukocyte cou nt by microscopy (number/high power field)on 09-30-2023 WBC LM.HPF (Urine sed) [#/Area] NONE SEEN #/HPF NONE SEEN [facility] Urobilinogen Auto test strip (U) [Mass/Vol]on 09-30-2023 Urobilinogen Qn (U) 0.2 {Brendan'U}/dL 0.2-1.[address] [facility] pH Auto test strip (U)on pH (U) 5.5 [pH] 5.0-9.[address] [facility] Guy 09-21-2023 L Specimen: [id number] Received: 09/21/23 Status: COLTON Nath Num: [id number] Spec Type: Surgical Subm Dr: Paula Soto DPM, MS Tissues: A Bone Fragments - Other than Path Fracture Procedures: HE, Gross/Micro L3, Decalcification Age/ Patient Sex Location Account Attending Physician Myra Pickard SR 58/M LABELL [id number] Paula Soto DPM, MS SPEC NUM: [id number] RECD: 09/21/23 STATUS: COLTON NATH NUM: [id number] SHAKIRA: 09/21/[address]: Paula Soto DPM, MS ENTERED: 09/21/23 [facility] DR: SPEC TYPE: Surgical DEPT: RAMSEY MARCANO ENTERED BY: [id number] RECV BY: [id number] ORDERED: HE, Gross/Micro L3, Decalcification ORDERED: HE, [...] excisional debridement with skin substitute. CPT Codes 38671, 88959 Specimen: [id number] Received: 09/21/23 Status: COLTON Nath Num: [id number] Spec Type: Surgical Subm Dr: Paula Soto DPM, MS Tissues: A Bone Fragments - Other than Path Fracture Procedures: LULU Gross/Joana L3, Decalcification Patient: Myra Pickard SR [id number] (Continued) Signed (signature on file) Victor Hugo Sotelo MD 09/26/23 0819 Normal [facility] Laboratory - Microbiology an d Antimicrobial susceptibilityOrdered By: Teresa Lynch on 09-21-2023 Microscopic observation Gram stain Nom (Unsp spec) [facility] Activated partial thrombopla stin time (aPTT) in platelet poor plasma by coagulation aon 09-18-2023 aPTT Coag (PPP) [Time] 32.0 s 22.3-36.2 [facility] Basophils Auto (Bld) [#/Vol] on 09-18-2023 Basophils (Bld) [#/Vol] 0.1 10 3/uL 0.0-0.[address] [facility] Basophils/100 WBC Auto (Bld) on 09-18-2023 Basophils/100 WBC (Bld) 0.9 % 0.2-2.[address] [facility] Eosinophils/100 WBC Auto (Bl d)on 09-18-2023 Eosinophils/100 WBC (Bld) 2.3 % 0.9-7.[address] [facility] Erythrocyte distribution wid th Auto (RBC) [Ratio]on 09-18-2023 Erythrocyte distribution width (RBC) [Ratio] 18.8 % High 11.0-15.[address] [facility] Estimated glomerular filtrat ion rate (GFR) non- Americanon 09-18-2023 GFR/1.73 sq M.predicted among non-blacks MDRD (S/P/Bld) [Vol rate/Area] 27 mL/min/{1.73_m2} Low >=[address] [facility] Hematocrit Auto (Bld) [Volum e fraction]on 09-18-2023 Hematocrit (Bld) [Volume fraction] 35.0 % Low 42.0-54.[address] [facility] Hemoglobin [Mass/volume] in Bloodon 09-18-2023 Hemoglobin (Bld) [Mass/Vol] 10.3 g/dL Low 14.0-18.[address] [facility] INR in Platelet poor plasma by Coagulation assayon 09-18-2023 INR Coag (PPP) [Relative time] 1.08 {INR} [facility] Comment on above: DESIRED INR:2.0-3.0 CONDITIONS NOT LISTED BELOW2.5-3.5 FOR PROSTHETIC HEART VALVE REPLACEMENT2.5-3.5 RECURRENT THROMBOSIS Laboratory - Chemistry and C hemistry - challengeon 09-18-2023 Calcium [Mass/Vol] 8.9 mg/dL 8.5-10.1 [facility] Chloride [Moles/Vol] 97 mmol/L Low 98-107 [facility] CO2 [Moles/Vol] 28.2 mmol/L 21.0-32.0 [facility] Creatinine [Mass/Vol] 2.47 mg/dL High 0.70-1.30 [facility] GFR/1.73 sq M.predicted MDRD (S/P/Bld) [Vol rate/Area] 33 mL/min/{1.73_m2} Low >=[address] [facility] Glucose [Mass/Vol] 200 mg/dL High 74-106 [facility] Potassium [Moles/Vol] 3.7 mmol/L 3.5-5.1 [facility] Sodium [Moles/Vol] 137 mmol/L 136-145 [facility] Urea nitrogen [Mass/Vol] 23.0 mg/dL High 7.0-18.[address] [facility] Urea nitrogen/Creatinine [Mass ratio] 9.3 mg/mg [facility] Laboratory - Hematology and Cell countson 09-18-2023 Immature granulocytes/100 WBC (Bld) 0.6 % High 0.0-0.[address] [facility] Leukocytes [#/volume] correc jorge for nucleated erythrocytes in Blood by Automated counon 09-18-2023 WBC corrected for nucl RBC Auto (Bld) [#/Vol] 12.4 10 3/uL High 4.0-11.[address] [facility] Lymphocytes Auto (Bld) [#/Vo l]on 09-18-2023 Lymphocytes (Bld) [#/Vol] 2.4 10 3/uL 1.2-3.[address] [facility] Lymphocytes/100 WBC Auto (Bl d)on 09-18-2023 Lymphocytes/100 WBC (Bld) 19.6 % Low 20.5-60.[address] [facility] MCH Auto (RBC) [Entitic mass ]on 09-18-2023 MCH (RBC) [Entitic mass] 22.2 pg Low 25.9-34.[address] [facility] MCHC Auto (RBC) [Mass/Vol]on 09-18-2023 MCHC (RBC) [Mass/Vol] 29.4 g/dL Low 29.9-35.2 [facility] MCV Auto (RBC) [Entitic vol] on 09-18-2023 MCV (RBC) [Entitic vol] 75.3 fL Low 80.0-94.[address] [facility] Monocytes Auto (Bld) [#/Vol] on 09-18-2023 Monocytes (Bld) [#/Vol] 1.2 10 3/uL High 0.3-0.[address] [facility] Monocytes/100 WBC Auto (Bld) on 09-18-2023 Monocytes/100 WBC (Bld) 10.0 % 1.7-12.[address] [facility] Neutrophils Auto (Bld) [#/Vo l]on 09-18-2023 Neutrophils (Bld) [#/Vol] 8.2 10 3/uL High 1.4-6.[address] [facility] Neutrophils/100 WBC Auto (Bl d)on 09-18-2023 Neutrophils/100 WBC (Bld) 66.6 % 43.0-75.[address] [facility] No Panel Informationon 09-17 Eosinophils # (Auto) 0.3 10 3/uL 0.0-0.7 [facility] Immature Granulocyte # (Auto) 0.07 10 3/uL High 0.00-0.[address] [facility] Platelet mean volume Auto (B ld) [Entitic vol]on 09-18-2023 Platelet mean volume (Bld) [Entitic vol] 10.9 fL 9.5-13.[address] [facility] Platelets Auto (Bld) [#/Vol] on 09-18-2023 Platelets (Bld) [#/Vol] 300 10 3/uL 150-[address] [facility] Prothrombin time (PT)on 09-03 PT Coag (PPP) [Time] 11.4 s 9.0-11.6 [facility] RBC Auto (Bld) [#/Vol]on RBC (Bld) [#/Vol] 4.65 10 6/uL Low 4.70-6.10 [facility] Serum or plasma anion gap de terminationon 09-18-2023 Anion gap [Moles/Vol] 15.5 mmol/L Fi [facility] Laboratory - Microbiology an d Antimicrobial susceptibilityOrdered By: Teresa Lynch on 08-10-2023 Microscopic observation Gram stain Nom (Unsp spec) [facility] No Panel Informationon 08-09 Fungal Smear Result [facility] Miscellaneous Test Comment See comment [facility] Comment on above: Specimen Source: JONO TRT - Foot Right - Foot Rt - 604.000 No Panel InformationOrdered By: Teresa Lynch on 08-10-2023 [facility] Acid Fast Smear [facility] AFB Specimen Processing [facility] Tissue Culture [facility] Basophils Auto (Bld) [#/Vol] on 08-07-2023 Basophils (Bld) [#/Vol] 0.1 10 3/uL 0.0-0.[address] [facility] Basophils/100 WBC Auto (Bld) on 08-07-2023 Basophils/100 WBC (Bld) 0.7 % 0.2-2.[address] [facility] Eosinophils/100 WBC Auto (Bl d)on 08-07-2023 Eosinophils/100 WBC (Bld) 3.9 % 0.9-7.[address] [facility] Erythrocyte distribution wid th Auto (RBC) [Ratio]on 08-07-2023 Erythrocyte distribution width (RBC) [Ratio] 16.9 % 11.0-15.[address] [facility] Estimated glomerular filtrat ion rate (GFR) non- Americanon 08-07-2023 GFR/1.73 sq M.predicted among non-blacks MDRD (S/P/Bld) [Vol rate/Area] 42 mL/min/{1.73_m2} >=[address] [facility] Globulin Calc (S) [Mass/Vol] on 08-07-2023 Globulin (S) [Mass/Vol] 4.0 g/dL [facility] Hematocrit Auto (Bld) [Volum e fraction]on 08-07-2023 Hematocrit (Bld) [Volume fraction] 31.5 % 42.0-54.[address] [facility] Hemoglobin [Mass/volume] in Bloodon 08-07-2023 Hemoglobin (Bld) [Mass/Vol] 9.4 g/dL 14.0-18.[address] [facility] Laboratory - Chemistry and C hemistry - challengeon 08-07-2023 Albumin [Mass/Vol] 2.1 g/dL 3.4-5.0 [facility] ALP [Catalytic activity/Vol] 144 U/L 46-[address] [facility] ALT [Catalytic activity/Vol] 21 U/L 16-[address] [facility] AST [Catalytic activity/Vol] 25 U/L 15-[address] [facility] Bilirubin [Mass/Vol] 0.4 mg/dL 0.2-1.0 [facility] Calcium [Mass/Vol] 8.1 mg/dL 8.5-10.1 [facility] Chloride [Moles/Vol] 102 mmol/L 98-107 [facility] CO2 [Moles/Vol] 24.7 mmol/L 21.0-32.0 [facility] Creatinine [Mass/Vol] 1.70 mg/dL 0.70-1.30 [facility] GFR/1.73 sq M.predicted MDRD (S/P/Bld) [Vol rate/Area] 50 mL/min/{1.73_m2} >=[address] [facility] Glucose [Mass/Vol] 188 mg/dL 74-106 [facility] Potassium [Moles/Vol] 4.6 mmol/L 3.5-5.1 [facility] Protein [Mass/Vol] 6.1 g/dL 6.4-8.2 [facility] Sodium [Moles/Vol] 135 mmol/L 136-145 [facility] Urea nitrogen [Mass/Vol] 33.0 mg/dL 7.0-18.[address] [facility] Urea nitrogen/Creatinine [Mass ratio] 19.4 mg/mg [facility] Laboratory - Hematology and Cell countson 08-07-2023 Immature granulocytes/100 WBC (Bld) 0.7 % 0.0-0.[address] [facility] Leukocytes [#/volume] correc jorge for nucleated erythrocytes in Blood by Automated counon 08-07-2023 WBC corrected for nucl RBC Auto (Bld) [#/Vol] 12.0 10 3/uL 4.0-11.[address] [facility] Lymphocytes Auto (Bld) [#/Vo l]on 08-07-2023 Lymphocytes (Bld) [#/Vol] 1.5 10 3/uL 1.2-3.[address] [facility] Lymphocytes/100 WBC Auto (Bl d)on 08-07-2023 Lymphocytes/100 WBC (Bld) 12.4 % 20.5-60.[address] [facility] MCH Auto (RBC) [Entitic mass ]on 08-07-2023 MCH (RBC) [Entitic mass] 22.5 pg 25.9-34.[address] [facility] MCHC Auto (RBC) [Mass/Vol]on 08-07-2023 MCHC (RBC) [Mass/Vol] 29.8 g/dL 29.9-35.2 [facility] MCV Auto (RBC) [Entitic vol] on 08-07-2023 MCV (RBC) [Entitic vol] 75.4 fL 80.0-94.[address] [facility] Monocytes Auto (Bld) [#/Vol] on 08-07-2023 Monocytes (Bld) [#/Vol] 1.2 10 3/uL 0.3-0.[address] [facility] Monocytes/100 WBC Auto (Bld) on 08-07-2023 Monocytes/100 WBC (Bld) 10.1 % 1.7-12.[address] [facility] Neutrophils Auto (Bld) [#/Vo l]on 08-07-2023 Neutrophils (Bld) [#/Vol] 8.7 10 3/uL 1.4-6.[address] [facility] Neutrophils/100 WBC Auto (Bl d)on 08-07-2023 Neutrophils/100 WBC (Bld) 72.2 % 43.0-75.[address] [facility] No Panel Informationon 08-06 Eosinophils # (Auto) 0.5 10 3/uL 0.0-0.7 [facility] Immature Granulocyte # (Auto) 0.09 10 3/uL 0.00-0.[address] [facility] Platelet mean volume Auto (B ld) [Entitic vol]on 08-07-2023 Platelet mean volume (Bld) [Entitic vol] 11.7 fL 9.5-13.[address] [facility] Platelets Auto (Bld) [#/Vol] on 08-07-2023 Platelets (Bld) [#/Vol] 222 10 3/uL 150-[address] [facility] RBC Auto (Bld) [#/Vol]on RBC (Bld) [#/Vol] 4.18 10 6/uL 4.70-6.10 [facility] Serum or plasma albumin/glob ulin mass ratioon 08-07-2023 Albumin/Globulin [Mass ratio] 0.5 {ratio} [facility] Serum or plasma anion gap de terminationon 08-07-2023 Anion gap [Moles/Vol] 12.9 mmol/L [facility] Basophils Auto (Bld) [#/Vol] on 08-06-2023 Basophils (Bld) [#/Vol] 0.1 10 3/uL 0.0-0.[address] [facility] Basophils/100 WBC Auto (Bld) on 08-06-2023 Basophils/100 WBC (Bld) 0.7 % 0.2-2.[address] [facility] Eosinophils/100 WBC Auto (Bl d)on 08-06-2023 Eosinophils/100 WBC (Bld) 3.3 % 0.9-7.[address] [facility] Erythrocyte distribution wid th Auto (RBC) [Ratio]on 08-06-2023 Erythrocyte distribution width (RBC) [Ratio] 17.0 % 11.0-15.[address] [facility] Estimated glomerular filtrat ion rate (GFR) non- Americanon 08-06-2023 GFR/1.73 sq M.predicted among non-blacks MDRD (S/P/Bld) [Vol rate/Area] 36 mL/min/{1.73_m2} >=[address] [facility] Globulin Calc (S) [Mass/Vol] on 08-06-2023 Globulin (S) [Mass/Vol] 4.0 g/dL [facility] Hematocrit Auto (Bld) [Volum e fraction]on 08-06-2023 Hematocrit (Bld) [Volume fraction] 30.1 % 42.0-54.[address] [facility] Hemoglobin [Mass/volume] in Bloodon 08-06-2023 Hemoglobin (Bld) [Mass/Vol] 8.8 g/dL 14.0-18.[address] [facility] Laboratory - Chemistry and C hemistry - challengeon 08-06-2023 Albumin [Mass/Vol] 2.0 g/dL 3.4-5.0 [facility] ALP [Catalytic activity/Vol] 127 U/L 46-[address] [facility] ALT [Catalytic activity/Vol] 14 U/L 16-[address] [facility] AST [Catalytic activity/Vol] 16 U/L 15-[address] [facility] Bilirubin [Mass/Vol] 0.4 mg/dL 0.2-1.0 [facility] Calcium [Mass/Vol] 7.9 mg/dL 8.5-10.1 [facility] Chloride [Moles/Vol] 99 mmol/L 98-107 [facility] CO2 [Moles/Vol] 25.0 mmol/L 21.0-32.0 [facility] Creatinine [Mass/Vol] 1.95 mg/dL 0.70-1.30 [facility] GFR/1.73 sq M.predicted MDRD (S/P/Bld) [Vol rate/Area] 43 mL/min/{1.73_m2} >=[address] [facility] Glucose [Mass/Vol] 297 mg/dL 74-106 [facility] Potassium [Moles/Vol] 4.4 mmol/L 3.5-5.1 [facility] Protein [Mass/Vol] 6.0 g/dL 6.4-8.2 [facility] Sodium [Moles/Vol] 133 mmol/L 136-145 [facility] Urea nitrogen [Mass/Vol] 28.0 mg/dL 7.0-18.[address] [facility] Urea nitrogen/Creatinine [Mass ratio] 14.4 mg/mg [facility] Laboratory - Hematology and Cell countson 08-06-2023 Immature granulocytes/100 WBC (Bld) 0.4 % 0.0-0.[address] [facility] Leukocytes [#/volume] correc jorge for nucleated erythrocytes in Blood by Automated counon 08-06-2023 WBC corrected for nucl RBC Auto (Bld) [#/Vol] 10.1 10 3/uL 4.0-11.[address] [facility] Lymphocytes Auto (Bld) [#/Vo l]on 08-06-2023 Lymphocytes (Bld) [#/Vol] 1.5 10 3/uL 1.2-3.[address] [facility] Lymphocytes/100 WBC Auto (Bl d)on 08-06-2023 Lymphocytes/100 WBC (Bld) 14.4 % 20.5-60.[address] [facility] MCH Auto (RBC) [Entitic mass ]on 08-06-2023 MCH (RBC) [Entitic mass] 22.5 pg 25.9-34.[address] [facility] MCHC Auto (RBC) [Mass/Vol]on 08-06-2023 MCHC (RBC) [Mass/Vol] 29.2 g/dL 29.9-35.2 [facility] MCV Auto (RBC) [Entitic vol] on 08-06-2023 MCV (RBC) [Entitic vol] 77.0 fL 80.0-94.[address] [facility] Monocytes Auto (Bld) [#/Vol] on 08-06-2023 Monocytes (Bld) [#/Vol] 1.1 10 3/uL 0.3-0.[address] [facility] Monocytes/100 WBC Auto (Bld) on 08-06-2023 Monocytes/100 WBC (Bld) 10.4 % 1.7-12.[address] [facility] Neutrophils Auto (Bld) [#/Vo l]on 08-06-2023 Neutrophils (Bld) [#/Vol] 7.2 10 3/uL 1.4-6.[address] [facility] Neutrophils/100 WBC Auto (Bl d)on 08-06-2023 Neutrophils/100 WBC (Bld) 70.8 % 43.0-75.[address] [facility] No Panel Informationon 08-05 Vancomycin Level Trough 13.6 ug/mL 5.0-20.[address] [facility] Eosinophils # (Auto) 0.3 10 3/uL 0.0-0.7 [facility] Immature Granulocyte # (Auto) 0.04 10 3/uL 0.00-0.[address] [facility] Platelet mean volume Auto (B ld) [Entitic vol]on 08-06-2023 Platelet mean volume (Bld) [Entitic vol] 12.2 fL 9.5-13.[address] [facility] Platelets Auto (Bld) [#/Vol] on 08-06-2023 Platelets (Bld) [#/Vol] 190 10 3/uL 150-[address] [facility] RBC Auto (Bld) [#/Vol]on RBC (Bld) [#/Vol] 3.91 10 6/uL 4.70-6.10 [facility] Serum or plasma albumin/glob ulin mass ratioon 08-06-2023 Albumin/Globulin [Mass ratio] 0.5 {ratio} [facility] Serum or plasma anion gap de terminationon 08-06-2023 Anion gap [Moles/Vol] 13.4 mmol/L [facility] Automated epithelial cells c ount in urine sediment (number/area)on 08-05-2023 Epithelial cells Auto (Urine sed) [#/Area] RARE #/LPF NONE/RARE [facility] Automated leukocytes count i n urine sediment (number/area)on 08-05-2023 WBC Auto (Urine sed) [#/Area] NONE SEEN #/HPF 0-[address] [facility] Automated urine specific gra vity by refractometryon 08-05-2023 Specific gravity Refractometry automated (U) [Rel density] <=1.005 1.005-1.[address] [facility] Basophils Auto (Bld) [#/Vol] on 08-05-2023 Basophils (Bld) [#/Vol] 0.1 10 3/uL 0.0-0.[address] [facility] Basophils/100 WBC Auto (Bld) on 08-05-2023 Basophils/100 WBC (Bld) 0.7 % 0.2-2.[address] [facility] Bilirubin Auto test strip (U ) [Mass/Vol]on 08-05-2023 Bilirubin (U) [Mass/Vol] Negative NEGATIVE [facility] Casts typing in urine sedime nt by light microscopyon 08-05-2023 Casts LM Nom (Urine sed) NONE SEEN #/LPF NONE SEEN [facility] Color Auto (U)on 08-05-2023 Color (U) LT. YELLOW YELLOW [facility] Eosinophils/100 WBC Auto (Bl d)on 08-05-2023 Eosinophils/100 WBC (Bld) 2.5 % 0.9-7.[address] [facility] Erythrocyte distribution wid th Auto (RBC) [Ratio]on 08-05-2023 Erythrocyte distribution width (RBC) [Ratio] 16.8 % 11.0-15.[address] [facility] Estimated glomerular filtrat ion rate (GFR) non- Americanon 08-05-2023 GFR/1.73 sq M.predicted among non-blacks MDRD (S/P/Bld) [Vol rate/Area] 42 mL/min/{1.73_m2} >=[address] [facility] Globulin Calc (S) [Mass/Vol] on 08-05-2023 Globulin (S) [Mass/Vol] 4.1 g/dL [facility] Glucose mean value [Mass/vol ume] in Blood Estimated from glycated hemoglobinon 08-05-2023 Average glucose Estimated from glycated hemoglobin (Bld) [Mass/Vol] 214 mg/dL [facility] Hematocrit Auto (Bld) [Volum e fraction]on 08-05-2023 Hematocrit (Bld) [Volume fraction] 31.8 % 42.0-54.[address] [facility] Hemoglobin [Mass/volume] in Bloodon 08-05-2023 Hemoglobin (Bld) [Mass/Vol] 9.4 g/dL 14.0-18.[address] [facility] Ketones Auto test strip (U) [Mass/Vol]on 08-05-2023 Ketones (U) [Mass/Vol] Negative NEGATIVE [facility] - Chemistry and C hemistry - challengeon 08-05-2023 Albumin [Mass/Vol] 2.3 g/dL 3.4-5.0 [facility] ALP [Catalytic activity/Vol] 111 U/L 46-[address] [facility] ALT [Catalytic activity/Vol] 11 U/L 16-[address] [facility] AST [Catalytic activity/Vol] 11 U/L 15-[address] [facility] Bilirubin [Mass/Vol] 0.5 mg/dL 0.2-1.0 [facility] Calcium [Mass/Vol] 8.1 mg/dL 8.5-10.1 [facility] Chloride [Moles/Vol] 101 mmol/L 98-107 [facility] CO2 [Moles/Vol] 25.6 mmol/L 21.0-32.0 [facility] Creatinine [Mass/Vol] 1.68 mg/dL 0.70-1.30 [facility] GFR/1.73 sq M.predicted MDRD (S/P/Bld) [Vol rate/Area] 51 mL/min/{1.73_m2} >=[address] [facility] Glucose [Mass/Vol] 111 mg/dL 74-106 [facility] Potassium [Moles/Vol] 3.7 mmol/L 3.5-5.1 [facility] Protein [Mass/Vol] 6.4 g/dL 6.4-8.2 [facility] Sodium [Moles/Vol] 138 mmol/L 136-145 [facility] Urea nitrogen [Mass/Vol] 17.0 mg/dL 7.0-18.[address] [facility] Urea nitrogen/Creatinine [Mass ratio] 10.1 mg/mg [facility] Laboratory - Hematology and Cell countson 08-05-2023 HbA1c (Bld) [Mass fraction] 9.1 % 4.5-6.[address] [facility] Comment on above: ADA RECOMMENDED LIMI T 4.0 - 6.0ADA THERAPEUTIC TARGET < 7.0ACTION SUGGESTED> 7.0 Immature granulocytes/100 WBC (Bld) 0.4 % 0.0-0.[address] [facility] Laboratory - Microbiology an d Antimicrobial susceptibilityOrdered By: Teresa Lynch on 08-05-2023 Microscopic observation Gram stain Nom (Unsp spec) [facility] Leukocytes [#/volume] correc jorge for nucleated erythrocytes in Blood by Automated counon 08-05-2023 WBC corrected for nucl RBC Auto (Bld) [#/Vol] 12.3 10 3/uL 4.0-11.[address] [facility] Lymphocytes Auto (Bld) [#/Vo l]on 08-05-2023 Lymphocytes (Bld) [#/Vol] 1.5 10 3/uL 1.2-3.[address] [facility] Lymphocytes/100 WBC Auto (Bl d)on 08-05-2023 Lymphocytes/100 WBC (Bld) 11.8 % 20.5-60.[address] [facility] MCH Auto (RBC) [Entitic mass ]on 08-05-2023 MCH (RBC) [Entitic mass] 22.4 pg 25.9-34.[address] [facility] MCHC Auto (RBC) [Mass/Vol]on 08-05-2023 MCHC (RBC) [Mass/Vol] 29.6 g/dL 29.9-35.2 [facility] MCV Auto (RBC) [Entitic vol] on 08-05-2023 MCV (RBC) [Entitic vol] 75.9 fL 80.0-94.[address] [facility] Monocytes Auto (Bld) [#/Vol] on 08-05-2023 Monocytes (Bld) [#/Vol] 1.3 10 3/uL 0.3-0.[address] [facility] Monocytes/100 WBC Auto (Bld) on 08-05-2023 Monocytes/100 WBC (Bld) 10.7 % 1.7-12.[address] [facility] Mucus LM Ql (Urine sed)on Mucus Ql (Urine sed) NONE SEEN NONE SEEN [facility] Neutrophils Auto (Bld) [#/Vo l]on 08-05-2023 Neutrophils (Bld) [#/Vol] 9.1 10 3/uL 1.4-6.[address] [facility] Neutrophils/100 WBC Auto (Bl d)on 08-05-2023 Neutrophils/100 WBC (Bld) 73.9 % 43.0-75.[address] [facility] No Panel Informationon 08-04 Eosinophils # (Auto) 0.3 10 3/uL 0.0-0.7 [facility] Immature Granulocyte # (Auto) 0.05 10 3/uL 0.00-0.[address] [facility] Platelet mean volume Auto (B ld) [Entitic vol]on 08-05-2023 Platelet mean volume (Bld) [Entitic vol] 11.2 fL 9.5-13.[address] [facility] Platelets Auto (Bld) [#/Vol] on 08-05-2023 Platelets (Bld) [#/Vol] 184 10 3/uL 150-[address] [facility] Protein Auto test strip (U) [Mass/Vol]on 08-05-2023 Protein (U) [Mass/Vol] Negative NEG/TRACE Fi [facility] RBC Auto (Bld) [#/Vol]on RBC (Bld) [#/Vol] 4.19 10 6/uL 4.70-6.10 [facility] Serum or plasma albumin/glob ulin mass ratioon 08-05-2023 Albumin/Globulin [Mass ratio] 0.6 {ratio} [facility] Serum or plasma anion gap de terminationon 08-05-2023 Anion gap [Moles/Vol] 15.1 mmol/L Fi [facility] Specific gravity Auto test s trip (U) [Rel density]on 08-05-2023 Specific gravity (U) [Rel density] CLEAR CLEAR [facility] Urine bacteria detection by automated methodon 08-05-2023 Bacteria Auto Ql (U) TRACE #/HPF NONE SEEN [facility] Urine glucose measurement by test strip (mass/volume)on 08-05-2023 Glucose Test strip (U) [Mass/Vol] >=1000 mg/dL NEGATIVE [facility] Urine hemoglobin detection b y automated test stripon 08-05-2023 Hemoglobin Auto test strip Ql (U) Negative NEGATIVE [facility] Urine nitrite detection by a utomated test stripon 08-05-2023 Nitrite Auto test strip Ql (U) Negative NEGATIVE [facility] Urine sediment crystal ident ification by light microscopyon 08-05-2023 Crystals LM Nom (Urine sed) None Seen #/HPF None Seen [facility] Urine sediment leukocyte cou nt by microscopy (number/high power field)on 08-05-2023 WBC LM.HPF (Urine sed) [#/Area] NONE SEEN #/HPF NONE SEEN [facility] Urobilinogen Auto test strip (U) [Mass/Vol]on 08-05-2023 Urobilinogen Qn (U) 0.2 {Brendan'U}/dL 0.2-1.[address] [facility] pH Auto test strip (U)on pH (U) 6.0 [pH] 5.0-9.[address] [facility] Basophils Auto (Bld) [#/Vol] on 08-04-2023 Basophils (Bld) [#/Vol] 0.1 10 3/uL 0.0-0.[address] [facility] Basophils/100 WBC Auto (Bld) on 08-04-2023 Basophils/100 WBC (Bld) 0.8 % 0.2-2.[address] [facility] Eosinophils/100 WBC Auto (Bl d)on 08-04-2023 Eosinophils/100 WBC (Bld) 2.8 % 0.9-7.[address] [facility] Erythrocyte distribution wid th Auto (RBC) [Ratio]on 08-04-2023 Erythrocyte distribution width (RBC) [Ratio] 16.9 % 11.0-15.[address] [facility] Estimated glomerular filtrat ion rate (GFR) non- Americanon 08-04-2023 GFR/1.73 sq M.predicted among non-blacks MDRD (S/P/Bld) [Vol rate/Area] 33 mL/min/{1.73_m2} >=[address] [facility] Globulin Calc (S) [Mass/Vol] on 08-04-2023 Globulin (S) [Mass/Vol] 4.4 g/dL [facility] Hematocrit Auto (Bld) [Volum e fraction]on 08-04-2023 Hematocrit (Bld) [Volume fraction] 32.6 % 42.0-54.[address] [facility] Hemoglobin [Mass/volume] in Bloodon 08-04-2023 Hemoglobin (Bld) [Mass/Vol] 9.6 g/dL 14.0-18.[address] [facility] INR in Platelet poor plasma by Coagulation assayon 08-04-2023 INR Coag (PPP) [Relative time] 1.05 {INR} [facility] Comment on above: DESIRED INR:2.0-3.0 CONDITIONS NOT LISTED BELOW2.5-3.5 FOR PROSTHETIC HEART VALVE REPLACEMENT2.5-3.5 RECURRENT THROMBOSIS Laboratory - Chemistry and C hemistry - challengeon 08-04-2023 Albumin [Mass/Vol] 2.4 g/dL 3.4-5.0 [facility] ALP [Catalytic activity/Vol] 109 U/L 46-[address] [facility] ALT [Catalytic activity/Vol] 9 U/L 16-[address] [facility] AST [Catalytic activity/Vol] U/L 15-[address] [facility] Bilirubin [Mass/Vol] 0.4 mg/dL 0.2-1.0 [facility] Calcium [Mass/Vol] 8.0 mg/dL 8.5-10.1 [facility] Chloride [Moles/Vol] 96 mmol/L 98-107 [facility] CO2 [Moles/Vol] 29.2 mmol/L 21.0-32.0 [facility] Creatinine [Mass/Vol] 2.06 mg/dL 0.70-1.30 [facility] GFR/1.73 sq M.predicted MDRD (S/P/Bld) [Vol rate/Area] 40 mL/min/{1.73_m2} >=[address] [facility] Glucose [Mass/Vol] 329 mg/dL 74-106 [facility] Potassium [Moles/Vol] 3.5 mmol/L 3.5-5.1 [facility] Protein [Mass/Vol] 6.8 g/dL 6.4-8.2 [facility] Sodium [Moles/Vol] 132 mmol/L 136-145 [facility] Urea nitrogen [Mass/Vol] 20.0 mg/dL 7.0-18.[address] [facility] Urea nitrogen/Creatinine [Mass ratio] 9.7 mg/mg [facility] Laboratory - Hematology and Cell countson 08-04-2023 ESR (Bld) [Velocity] 89 mm/h <=20 [facility] Immature granulocytes/100 WBC (Bld) 0.3 % 0.0-0.[address] [facility] Laboratory - Microbiology an d Antimicrobial susceptibilityOrdered By: Teresa Lynch on 08-04-2023 Microscopic observation Gram stain Nom (Unsp spec) [facility] Leukocytes [#/volume] correc jorge for nucleated erythrocytes in Blood by Automated counon 08-04-2023 WBC corrected for nucl RBC Auto (Bld) [#/Vol] 11.6 10 3/uL 4.0-11.[address] [facility] Lymphocytes Auto (Bld) [#/Vo l]on 08-04-2023 Lymphocytes (Bld) [#/Vol] 1.7 10 3/uL 1.2-3.[address] [facility] Lymphocytes/100 WBC Auto (Bl d)on 08-04-2023 Lymphocytes/100 WBC (Bld) 14.9 % 20.5-60.[address] [facility] MCH Auto (RBC) [Entitic mass ]on 08-04-2023 MCH (RBC) [Entitic mass] 22.3 pg 25.9-34.[address] [facility] MCHC Auto (RBC) [Mass/Vol]on 08-04-2023 MCHC (RBC) [Mass/Vol] 29.4 g/dL 29.9-35.2 [facility] MCV Auto (RBC) [Entitic vol] on 08-04-2023 MCV (RBC) [Entitic vol] 75.8 fL 80.0-94.[address] [facility] Monocytes Auto (Bld) [#/Vol] on 08-04-2023 Monocytes (Bld) [#/Vol] 1.2 10 3/uL 0.3-0.[address] [facility] Monocytes/100 WBC Auto (Bld) on 08-04-2023 Monocytes/100 WBC (Bld) 10.4 % 1.7-12.[address] [facility] Neutrophils Auto (Bld) [#/Vo l]on 08-04-2023 Neutrophils (Bld) [#/Vol] 8.2 10 3/uL 1.4-6.[address] [facility] Neutrophils/100 WBC Auto (Bl d)on 08-04-2023 Neutrophils/100 WBC (Bld) 70.8 % 43.0-75.[address] [facility] No Panel InformationOrdered By: Teresa Lynch on 08-04-2023 Blood Culture [address] [facility] Blood Culture [address] [facility] Wound Culture [facility] No Panel Informationon 08-03 Aerobic & Anaerobic Susceptibility [facility] Miscellaneous Test Comment See comment [facility] Comment on above: Specimen Source: JONO T - Foot - Foot - 603.950 C-Reactive Protein, Quantitative 11.62 mg/dL <=0.[address] [facility] Eosinophils # (Auto) 0.3 10 3/uL 0.0-0.7 Fir [facility] Immature Granulocyte # (Auto) 0.04 10 3/uL 0.00-0.[address] [facility] Platelet mean volume Auto (B ld) [Entitic vol]on 08-04-2023 Platelet mean volume (Bld) [Entitic vol] 11.5 fL 9.5-13.[address] [facility] Platelets Auto (Bld) [#/Vol] on 08-04-2023 Platelets (Bld) [#/Vol] 206 10 3/uL 150-[address] [facility] Prothrombin time (PT)on PT Coag (PPP) [Time] 11.1 s 9.0-11.6 [facility] RBC Auto (Bld) [#/Vol]on RBC (Bld) [#/Vol] 4.30 10 6/uL 4.70-6.10 [facility] Serum or plasma albumin/glob ulin mass ratioon 08-04-2023 Albumin/Globulin [Mass ratio] 0.5 {ratio} [facility] Serum or plasma anion gap de terminationon 08-04-2023 Anion gap [Moles/Vol] 10.3 mmol/L [facility] Serum procalcitonin measurem enton 08-04-2023 Procalcitonin [Mass/Vol] 0.10 ng/mL 0.00-0.[address] [facility] Basophils Auto (Bld) [#/Vol] on 08-03-2023 Basophils (Bld) [#/Vol] 0.1 10 3/uL 0.0-0.[address] [facility] Basophils/100 WBC Auto (Bld) on 08-03-2023 Basophils/100 WBC (Bld) 0.7 % 0.2-2.0 [facility] Eosinophils/100 WBC Auto (Bl d)on 08-03-2023 Eosinophils/100 WBC (Bld) 1.8 % 0.9-7.[address] [facility] Erythrocyte distribution wid th Auto (RBC) [Ratio]on 08-03-2023 Erythrocyte distribution width (RBC) [Ratio] 17.0 % 11.0-15.[address] [facility] Estimated glomerular filtrat ion rate (GFR) non- Americanon 08-03-2023 GFR/1.73 sq M.predicted among non-blacks MDRD (S/P/Bld) [Vol rate/Area] 27 mL/min/{1.73_m2} >=[address] [facility] Globulin Calc (S) [Mass/Vol] on 08-03-2023 Globulin (S) [Mass/Vol] 5.0 g/dL [facility] Hematocrit Auto (Bld) [Volum e fraction]on 08-03-2023 Hematocrit (Bld) [Volume fraction] 38.9 % 42.0-54.[address] [facility] Hemoglobin [Mass/volume] in Bloodon 08-03-2023 Hemoglobin (Bld) [Mass/Vol] 11.8 g/dL 14.0-18.[address] [facility] Laboratory - Chemistry and C hemistry - challengeon 08-03-2023 Lactate [Moles/Vol] 1.6 mmol/L 0.4-2.0 [facility] Albumin [Mass/Vol] 3.3 g/dL 3.4-5.0 [facility] ALP [Catalytic activity/Vol] 134 U/L 46-[address] [facility] ALT [Catalytic activity/Vol] 13 U/L 16-[address] [facility] AST [Catalytic activity/Vol] U/L 15-[address] [facility] Bilirubin [Mass/Vol] 0.6 mg/dL 0.2-1.0 [facility] Calcium [Mass/Vol] 9.3 mg/dL 8.5-10.1 [facility] Chloride [Moles/Vol] 92 mmol/L 98-107 [facility] CO2 [Moles/Vol] 31.0 mmol/L 21.0-32.0 [facility] Creatinine [Mass/Vol] 2.45 mg/dL 0.70-1.30 [facility] GFR/1.73 sq M.predicted MDRD (S/P/Bld) [Vol rate/Area] 33 mL/min/{1.73_m2} >=[address] [facility] Glucose [Mass/Vol] 310 mg/dL 74-106 [facility] Potassium [Moles/Vol] 3.7 mmol/L 3.5-5.1 [facility] Protein [Mass/Vol] 8.3 g/dL 6.4-8.2 [facility] Sodium [Moles/Vol] 133 mmol/L 136-145 [facility] Urea nitrogen [Mass/Vol] 23.0 mg/dL 7.0-18.[address] [facility] Urea nitrogen/Creatinine [Mass ratio] 9.4 mg/mg [facility] Laboratory - Hematology and Cell countson 08-03-2023 ESR (Bld) [Velocity] 118 mm/h <=20 [facility] Immature granulocytes/100 WBC (Bld) 0.4 % 0.0-0.[address] [facility] Leukocytes [#/volume] correc jorge for nucleated erythrocytes in Blood by Automated counon 08-03-2023 WBC corrected for nucl RBC Auto (Bld) [#/Vol] 14.6 10 3/uL 4.0-11.[address] [facility] Lymphocytes Auto (Bld) [#/Vo l]on 08-03-2023 Lymphocytes (Bld) [#/Vol] 2.1 10 3/uL 1.2-3.[address] [facility] Lymphocytes/100 WBC Auto (Bl d)on 08-03-2023 Lymphocytes/100 WBC (Bld) 14.3 % 20.5-60.[address] [facility] MCH Auto (RBC) [Entitic mass ]on 08-03-2023 MCH (RBC) [Entitic mass] 22.6 pg 25.9-34.[address] [facility] MCHC Auto (RBC) [Mass/Vol]on 08-03-2023 MCHC (RBC) [Mass/Vol] 30.3 g/dL 29.9-35.2 [facility] MCV Auto (RBC) [Entitic vol] on 08-03-2023 MCV (RBC) [Entitic vol] 74.4 fL 80.0-94.[address] [facility] Monocytes Auto (Bld) [#/Vol] on 08-03-2023 Monocytes (Bld) [#/Vol] 1.4 10 3/uL 0.3-0.[address] [facility] Monocytes/100 WBC Auto (Bld) on 08-03-2023 Monocytes/100 WBC (Bld) 9.4 % 1.7-12.[address] [facility] Neutrophils Auto (Bld) [#/Vo l]on 08-03-2023 Neutrophils (Bld) [#/Vol] 10.7 10 3/uL 1.4-6.[address] [facility] Neutrophils/100 WBC Auto (Bl d)on 08-03-2023 Neutrophils/100 WBC (Bld) 73.4 % 43.0-75.[address] [facility] No Panel Informationon C-Reactive Protein, Quantitative 14.63 mg/dL <=0.[address] [facility] Eosinophils # (Auto) 0.3 10 3/uL 0.0-0.7 Fir [facility] Immature Granulocyte # (Auto) 0.06 10 3/uL 0.00-0.[address] [facility] Venous Blood Partial Pressure CO2 44.8 mm[Hg] 40.0-52.[address] [facility] Venous Blood pH 7.432 7.330-7.[address] [facility] No Panel InformationOrdered By: Teresa Lynch on 08-03-2023 Blood Culture [address] [facility] Blood Culture [address] [facility] Platelet mean volume Auto (B ld) [Entitic vol]on 08-03-2023 Platelet mean volume (Bld) [Entitic vol] 11.4 fL 9.5-13.[address] [facility] Platelets Auto (Bld) [#/Vol] on 08-03-2023 Platelets (Bld) [#/Vol] 252 10 3/uL 150-[address] [facility] RBC Auto (Bld) [#/Vol]on RBC (Bld) [#/Vol] 5.23 10 6/uL 4.70-6.10 [facility] Serum or plasma albumin/glob ulin mass ratioon 08-03-2023 Albumin/Globulin [Mass ratio] 0.7 {ratio} [facility] Serum or plasma anion gap de terminationon 08-03-2023 Anion gap [Moles/Vol] 13.7 mmol/L [facility] US venous duplex LE BIon US venous duplex LE BI [facility] [address] [place] [id number] Ultrasound Report Signed Patient: Myra Pickard SR MR#: [id number] : 1965 Acct:[id number] Age/Sex: 57 / M ADM Date: 07/12/23 [...] Howard Boss MD07/13/2023 11:56 AM Dictation Location: [place] [address] Tech: Nancy Pantoja Transcribed By: BOB 07/13/23 1156 Dictated By: Howard Boss MD 07/13/23 1156 Signed By: 07/13/23 1156 Normal [facility] US venous duplex UE LTon US venous duplex UE LT [facility] [address] [address] Ultrasound Report Signed Patient: Myra Pickard SR MR#: [id number] : 1965 Acct:[id number] Age/Sex: 57 / M ADM Date: 07/12/23 [...] Howard Boss MD07/13/2023 11:56 AM Dictation Location: [place] [address] Tech: Nancy Pantoja Transcribed By: BOB 07/13/23 1156 Dictated By: Howard Boss MD 07/13/23 1155 Signed By: 07/13/23 1156 Normal [facility] Activated partial thrombopla stin time (aPTT) in platelet poor plasma by coagulation aOrdered By: Nancy Wilson on 07-12-2023 aPTT Coag (PPP) [Time] 29.4 s 25.1-36.5 [facility] Comment on above: A hematocrit value g reater than 55% may lead to inaccurate results in coagulation testing. Patients having hematocrit values >55% require a special collection tube for coagulation studies. Please contact the laboratory at [phone] for redraw instructions. Alanine aminotransferase [En zymatic activity/volume] in Serum or PlasmaOrdered By: Nancy Wilson on 07-12-2023 ALT [Catalytic activity/Vol] 9 U/L Normal 7-[address] [facility] Comment on above: Performed By: #### G LULS #### Point of Care testing , Albumin [Mass/volume] in Ser um or Plasma by Bromocresol green (BCG) dye binding methoOrdered By: Nancy Wilson on 07-12-2023 Albumin BCG dye [Mass/Vol] 3.9 g/dL 3.5-5.[address] [facility] Alkaline phosphatase [Enzyma tic activity/volume] in Serum or PlasmaOrdered By: Nancy Wilson on 07-12-2023 ALP [Catalytic activity/Vol] 106 U/L High 34-[address] [facility] Comment on above: Performed By: #### G LULS #### Point of Care testing , Aspartate aminotransferase [ Enzymatic activity/volume] in Serum or PlasmaOrdered By: Nancy Wilson on 07-12-2023 AST [Catalytic activity/Vol] 8 U/L Low 13-[address] [facility] Comment on above: Performed By: #### G LULS #### Point of Care testing , Automated basophil %Ordered By: Nancy iWlson on 07-12-2023 Basophils/100 WBC (Bld) 1.1 % Normal . [facility] Comment on above: Performed By: #### G LULS #### Point of Care testing , Automated basophil countOrde red By: Nancy Wilson on 07-12-2023 Basophils (Bld) [#/Vol] 0.1 10*3/uL Normal 0.0-0.[address] [facility] Comment on above: Result Comment: PERF ORMED BY: [facility] [address] [place] [address] PATHOLOGIST SERVICE DELIVERY ANALYST CLIFFORD LOBATO M.D. Performed By: #### G LULS #### Point of Care testing , Automated blood monocyte cou ntOrdered By: Nancy Wilson on 07-12-2023 Monocytes (Bld) [#/Vol] 1.0 10*3/uL High 0.0-0.[address] [facility] Comment on above: Performed By: #### G LULS #### Point of Care testing , Automated eosinophil %Ordere d By: Nancy Wilson on 07-12-2023 Eosinophils/100 WBC (Bld) 3.3 % Normal . [facility] Comment on above: Performed By: #### G LULS #### Point of Care testing , Automated eosinophil countOr dered By: Nancy Wilson on 07-12-2023 Eosinophils (Bld) [#/Vol] 0.3 10*3/uL Normal 0.0-0.[address] [facility] Comment on above: Performed By: #### G LULS #### Point of Care testing , Automated monocyte %Ordered By: Nancy Wilson on 07-12-2023 Monocytes/100 WBC (Bld) 10.2 % Normal . [facility] Comment on above: Performed By: #### G LULS #### Point of Care testing , Automated neutrophil %Ordere d By: Nancy Wilson on 07-12-2023 Neutrophils/100 WBC (Bld) 65.4 % Normal . [facility] Comment on above: Performed By: #### G LULS #### Point of Care testing , BNP ser/plasOrdered By: Laith davesandeep Wilson on 07-12-2023 Natriuretic peptide B (Bld) [Mass/Vol] 34.0 pg/mL Normal 5-[address] [facility] Comment on above: Result Comment: PERF ORMED BY: [facility] [address] [place] [address] PATHOLOGIST SERVICE DELIVERY ANALYST CLIFFORD LOBATO M.D. Performed By: #### G LULS #### Point of Care testing , Bilirubin.total [Mass/volume ] in Serum or PlasmaOrdered By: Nancy Wilson on 07-12-2023 Bilirubin [Mass/Vol] 0.4 mg/dL Normal 0.3-1.0 [facility] Comment on above: Performed By: #### G LULS #### Point of Care testing , Calcium [Mass/volume] in Ser um or PlasmaOrdered By: Nancy Wilson on 07-12-2023 Calcium [Mass/Vol] 8.5 mg/dL Low 8.6-10.3 [facility] Comment on above: Performed By: #### G LULS #### Point of Care testing , Carbon dioxide, total [Moles /volume] in Serum or PlasmaOrdered By: Nancy Wilson on 07-12-2023 CO2 [Moles/Vol] 24.5 mmol/L Normal 21.0-31.0 [facility] Comment on above: Performed By: #### G LULS #### Point of Care testing , Chloride [Moles/volume] in S ilia or PlasmaOrdered By: Nancy Wilson on 07-12-2023 Chloride [Moles/Vol] 102 mmol/L Normal 98-107 [facility] Comment on above: Performed By: #### G LULS #### Point of Care testing , Complete Blood Count Auto Di ffon 07-12-2023 Mean Corpuscular HGB Conc 32.4 g/dL Low 32.5-35.6 [facility] Comment on above: Performed By: #### G LULS #### Point of Care testing , Monocytes/100 WBC (Bld) 18.12 % Normal 0.00-20.00 [facility] Comment on above: Performed By: #### G LULS #### Point of Care testing , NRBC% 0.1 /100{WBC} Normal 0-0.5 [facility] Comment on above: Performed By: #### G LULS #### Point of Care testing , Comprehensive Metabolic Pane guy 07-12-2023 Albumin [Mass/Vol] 3.9 g/dL Normal 3.5-5.7 [facility] Comment on above: Performed By: #### G LULS #### Point of Care testing , Creatinine Clr Calc Pharmacy 54.64 Normal [facility] Comment on above: Result Comment: PERF ORMED BY: [facility] [address] [place] [address] PATHOLOGIST SERVICE DELIVERY ANALYST CLIFFORD LOBATO M.D. Performed By: #### G LULS #### Point of Care testing , GFR/1.73 sq M.predicted MDRD (S/P/Bld) [Vol rate/Area] 42.789 mL/min/{1.73_m2} Normal [facility] Comment on above: Performed By: #### G LULS #### Point of Care testing , Creatine kinase [Enzymatic a ctivity/volume] in Serum or PlasmaOrdered By: Nancy Wilson on 07-12-2023 CK [Catalytic activity/Vol] 55 U/L Normal 30-[address] [facility] Comment on above: Performed By: #### G LULS #### Point of Care testing , Creatinine [Mass/volume] in Serum or PlasmaOrdered By: Nancy Wilson on 07-12-2023 Creatinine [Mass/Vol] 1.82 mg/dL High 0.70-1.30 [facility] Comment on above: Performed By: #### G LULS #### Point of Care testing , ECG 12 lead ECGon 07-12-2023 [address] [facility] [place] [address] [place] [address] Electrocardiograph Report Signed Patient: Myra Pickard SR MR#: [id number] : 1965 Acct:[id number] Age/Sex: 57 / M ADM Date: 07/12/23 [...] Nancy Wilson MD 01/26 0135 Normal [facility] Erythrocyte distribution wid th [Ratio] by Automated countOrdered By: Nancy Wilson on 07-12-2023 Erythrocyte distribution width (RBC) [Ratio] 17.1 % High 12.0-14.[address] [facility] Comment on above: Performed By: #### G LULS #### Point of Care testing , Erythrocytes [#/volume] in B lood by Automated countOrdered By: Nancy Wilson on 07-12-2023 RBC (Bld) [#/Vol] 4.63 10*6/uL Normal 3.90-5.60 [facility] Comment on above: Performed By: #### G LULS #### Point of Care testing , Glucose [Mass/volume] in Ser um or PlasmaOrdered By: Nancy Wilson on 07-12-2023 Glucose [Mass/Vol] 302 mg/dL High 70-100 [facility] Comment on above: ADA recommended refe rence rangeRandom Glucose Reference Range is dependent on time and content of last meal. Glucose of more than 200 mg/dL in a nonstressed, ambulatory subject supports the diagnosis of Diabetes Mellitus. Result Comment: [place] Glucose Reference Range is dependent on time and content of last meal. Glucose of more than 200 mg/dL in a nonstressed, ambulatory subject supports the diagnosis of Diabetes Mellitus. ADA recommended reference range Performed By: #### G NELI #### Point of Care testing , Hematocrit [Volume Fraction] of Blood by Automated countOrdered By: Nancy Wilson on 07-12-2023 Hematocrit (Bld) [Volume fraction] 32.7 % Low 38.8-50.[address] [facility] Comment on above: Performed By: #### G NELI #### Point of Care testing , Hemoglobin [Mass/volume] in BloodOrdered By: Nancy Wilson on 07-12-2023 Hemoglobin (Bld) [Mass/Vol] 10.6 g/dL Low 13.0-17.[address] [facility] Comment on above: Performed By: #### G NELI #### Point of Care testing , INR in Platelet poor plasma by Coagulation assayOrdered By: Nanyc Wilson on 07-12-2023 INR Coag (PPP) [Relative time] 1.1 {INR} Normal [facility] Comment on above: INR Therapeutic Rang [...] (Bld) [#/Vol] 9.5 10*3/uL 4.1-10.[address] [facility] Leukocytes [#/volume] in Blo od by Automated countOrdered By: Nancy Wilson on 07-12-2023 WBC (Bld) [#/Vol] 9.5 10*3/uL Normal 4.1-10.5 [facility] Comment on above: Performed By: #### G LULS #### Point of Care testing , Lymphocytes [#/volume] in Bl ood by Automated countOrdered By: Nancy Wilson on 07-12-2023 Lymphocytes (Bld) [#/Vol] 1.9 10*3/uL Normal 1.00-4.[address] [facility] Comment on above: Performed By: #### G LULS #### Point of Care testing , Lymphocytes/100 leukocytes i n Blood by Automated countOrdered By: Nancy Wilson on 07-12-2023 Lymphocytes/100 WBC (Bld) 20.0 % Normal . [facility] Comment on above: Performed By: #### G LULS #### Point of Care testing , MCH [Entitic mass] by Automa jorge countOrdered By: Nancy Wilson on 07-12-2023 MCH (RBC) [Entitic mass] 22.8 pg Low 27.5-35.[address] [facility] Comment on above: Performed By: #### G LULS #### Point of Care testing , MCHC Auto (RBC) [Mass/Vol]Or dered By: Nancy Wilson on 07-12-2023 MCHC (RBC) [Mass/Vol] 32.4 g/dL 32.5-35.6 [facility] MCV [Entitic volume] by Auto mated countOrdered By: Nancy Wilson on 07-12-2023 MCV (RBC) [Entitic vol] 70.6 fL Low 83.5-[address] [facility] Comment on above: Performed By: #### G LULS #### Point of Care testing , Monocyte distribution width [Entitic volume] in Blood by AutomatedOrdered By: Nancy Wilson on 07-12-2023 Monocyte distribution width Auto (Bld) [Entitic vol] 18.12 % 0.00-20.[address] [facility] Neutrophils [#/volume] in Bl ood by Automated countOrdered By: Nancy Wilson on 07-12-2023 Neutrophils (Bld) [#/Vol] 6.2 10*3/uL Normal 1.8-7.[address] [facility] Comment on above: Performed By: #### G LULS #### Point of Care testing , No Panel InformationOrdered By: Nancy Wilson on 07-12-2023 Estimated GFR (CKD-EPI) 42.789 mL/Min [facility] Creatinine Clearance (Chem 54.[address] [facility] Nucleated erythrocytes [Pres ence] in Blood by Automated countOrdered By: Nancy Wilson on 07-12-2023 Nucleated RBC Auto Ql (Bld) 0.1 /100{WBC} 0-0.[address] [facility] Partial Thromboplastin Timeo n 07-12-2023 aPTT Coag (Bld) [Time] 29.4 s Normal 25.1-36.5 [facility] Comment on above: Result Comment: A he matocrit value greater than 55% may lead to inaccurate results in coagulation testing. Patients having hematocrit values >55% require a special collection tube for coagulation studies. Please contact the laboratory at [phone] for redraw instructions. PERFORMED BY: [facility] [address] [place] [address] PATHOLOGIST SERVICE DELIVERY ANALYST CLIFFORD LOBATO M.D. Performed By: #### G LULS #### Point of Care testing , Platelet mean volume [Entiti c volume] in Blood by Automated countOrdered By: Nancy Wilson on 07-12-2023 Platelet mean volume (Bld) [Entitic vol] 9.1 fL Normal 6.6-10.[address] [facility] Comment on above: Performed By: #### G LULS #### Point of Care testing , Platelets [#/volume] in Bloo d by Automated countOrdered By: Nancy Wilson on 07-12-2023 Platelets (Bld) [#/Vol] 233 10*3/uL Normal 150-[address] [facility] Comment on above: Performed By: #### G LULS #### Point of Care testing , Potassium [Moles/volume] in Serum or PlasmaOrdered By: Nancy Wilson on 07-12-2023 Potassium [Moles/Vol] 3.9 mmol/L Normal 3.5-5.1 [facility] Comment on above: Performed By: #### G LULS #### Point of Care testing , Protein [Mass/volume] in Ser um or PlasmaOrdered By: Nancy Wilson on 07-12-2023 Protein [Mass/Vol] 7.0 g/dL Normal 6.4-8.9 [facility] Comment on above: Performed By: #### G LULS #### Point of Care testing , Prothrombin time (PT)Ordered By: Nancy Wilson on 07-12-2023 PT Coag (PPP) [Time] 12.1 s Normal 9.0-12.9 [facility] Comment on above: A hematocrit value g reater than 55% may lead to inaccurate results in coagulation testing. Patients having hematocrit values >55% require a special collection tube for coagulation studies. Please contact the laboratory at [phone] for redraw instructions. Result Comment: A he matocrit value greater than 55% may lead to inaccurate results in coagulation testing. Patients having hematocrit values >55% require a special collection tube for coagulation studies. Please contact the laboratory at [phone] for redraw instructions. Performed By: #### G LULS #### Point of Care testing , Serum globulin measurement b y calculation (mass/volume)Ordered By: Nancy Wilson on 07-12-2023 Globulin (S) [Mass/Vol] 3.1 g/dL Normal [facility] Comment on above: Performed By: #### G LULS #### Point of Care testing , Serum or plasma albumin/glob ulin mass ratioOrdered By: Nancy Wilson on 07-12-2023 Albumin/Globulin [Mass ratio] 1.3 {ratio} Normal [facility] Comment on above: Performed By: #### G LULS #### Point of Care testing , Serum or plasma anion gap de terminationOrdered By: Nancy Wilson on 07-12-2023 Anion gap [Moles/Vol] 13.4 mmol/L Normal 6.0-15.0 [facility] Comment on above: Performed By: #### G LULS #### Point of Care testing , Sodium [Moles/volume] in Ser um or PlasmaOrdered By: Nancy Wilson on 07-12-2023 Sodium [Moles/Vol] 136 mmol/L Normal 136-145 [facility] Comment on above: Performed By: #### G LULS #### Point of Care testing , Troponin I High Sensitivityo n 07-12-2023 Troponin I High Sensitivity 4.6 pg/mL Normal 0.0-20.0 [facility] Comment on above: Result Comment: PERF ORMED BY: [address] [address] PATHOLOGIST SERVICE DELIVERY ANALYST CLIFFORD LOBATO M.D. Performed By: #### G LULS #### Point of Care testing , Troponin I.cardiac [Mass/vol ume] in Serum or Plasma by Detection limit <= 0.01 ng/Ordered By: Nancy Wilson on 07-12-2023 Troponin I.cardiac DL <= 0.01 ng/mL [Mass/Vol] 4.6 pg/mL 0.0-20.[address] [facility] Urea nitrogen [Mass/volume] in Serum or PlasmaOrdered By: Nancy Wilson on 07-12-2023 Urea nitrogen [Mass/Vol] 16 mg/dL Normal 7-[address] [facility] Comment on above: Performed By: #### G LULS #### Point of Care testing , XR chest 1V portableon 07-12 [address] [facility] Main [address] [address] XRay Report Signed Patient: Myra Pickard SR MR#: [id number] : 1965 Acct:[id number] Age/Sex: 57 / M ADM Date: 07/12/23 [...] Sudeep Lind M.D.07/12/2023 5:08 PM Dictation Location: [place] [address] Transcribed By: [facility] 07/12/23 170 Dictated By: Sudeep Lind DO 07/12/231706 Signed By: 07/12/231707 Normal [facility] Patient Educationon 29-20 23 [...] Follow these instructions at home: ? Take stqo-cas-jdydczr and prescription medicines only as told by [...] the medicine (more content not included)... Normal [facility] Retail - Clinical Noteon Retail - Clinical Note [id number]#1.00TIFF [facility] Urology Office/Clinic Noteon 06-02-2023 Urology Office/Clinic Note Chief Complaint S/p to Cysto HPI Staff Sp to Cysto done @ [facility] on 02/14/23- Has not noticed any difference- [...] Contact Information SOLEDAD HERRERA, Yeyo Blum, URL [facility] [place] [id number]- Additional Instructions: 1 month w/ cath volumes Patient Education Benign Prostatic Hyperplasia IMattie, personally scribed for Dr. Rowe on 06/02/2023 [...] heart failure) (more content not included)... Normal [facility] Comment on above: Result Comment: Elec tronically Signed By: Yeyo ROWE MD\.br\Date and Time Signed: 06/02/23 12:16 EST\.br\Electronically Co-Signed By: Mattie Foster.br\Date and Time Co-Signed: 06/02/23 12:04 EST Patient Educationon 05-03-20 Patient Education Normal [facility] Pathology Noteon 05-01-2023 Pathology Note [id number]#1.00TIFF Normal [facility] Lab Reportson 04-14-2023 Lab Reports [id number]#1.00TIFF Normal [facility] Operative Reporton Operative Report [id number]#1.00TIFF Normal [facility] Patient Correspondenceon Patient Correspondence [id number]#1.00TIFF Normal [facility] Lab Reportson 03-31-2023 Lab Reports [id number]#1.00TIFF Normal [facility] RAD - MISCon 03-31-2023 RAD - MISC [id number]#1.00TIFF Normal [facility] Patient Correspondenceon Patient Correspondence [id number]#1.00TIFF Normal [facility] Formson 03-23-2023 Forms [id number]#1.00TIFF Normal [facility] A1C HEMOGLOBINon 03-15-2023 HbA1c (Bld) [Mass fraction] 7.5 % [employer] Other HbA1c (Bld) [Mass fraction]o n 03-15-2023 A1C HEMOGLOBIN [facility] Other Lab Reportson 03-09-2023 Lab Reports [id number]#1.00TIFF Marquise Chatman [facility] Office Visit (Cardiology)on 02-15-2023 Follow-up visit [...] in adult Healthy Weight Tips; Status:Complete; Done: [id number] Patient Instructions Please bring all medicines, vitamins, [...] f/u: 'best I felt in a while' MYRA PICKARD is being seen for a 1 [...] Sia HERRERA, (more content not included)... Normal [facility] Tobacco Screening.on 023 Fall risk assessment c) Not medically indicated -[facility] [facility] [address] DO Work Phone: Tobacco use status [facility] b) No -[facility] [facility] [address] DO Work Phone: Tobacco Screening. Yes [facility] [facility] [address] DO Work Phone: [facility] CARDIAC STRESS/REST INJE CTIONon 01-25-2023 [facility] CARDIAC STRESS/REST INJECTION Patient Name: MYRA PICKARD STUDY: MYOCARDIAL PERFUSION STRESS TEST WITH EXERCISE CONVERTED TO LEXISCAN Performing facility: [facility], [address] [place] [address], [address], [address] Provider: Dolores Pickard RN, SENIOR FACILITIES MANAGER PCP: Dr. Teresa Lynch Supervising provider: Pascale Arnold MD, FACC INDICATION: Anginal equivalent CAD; HISTORY: Gender: M; Age: 57 y/o ; Height: 182.88 cm; Weight: 97.7880856 kg. High Cholesterol; CAD; Diabetes; HTN; Palpitations; Chest Pain; Quit smoking unknown years ago. COMPARISON: Previous nuclear testing completed at [facility]. ACCESSION NUMBER(S): [id number]; [id number]; [id number] ORDERING CLINICIAN: DOLORES PICKARD TECHNIQUE: ONE DAY [...] Medical Center No Panel Informationon 01-25 Normal -[facility] [facility] DO [...] contact the office if new symptoms arise. CLINICAL BUSINESS ANALYST after procedure Chief Complaint Routine f/u: 'I have been getting so tired' MYRA PICKARD is being seen for a 6 [...] Cataract surg (more content not included)... Normal [facility] Tobacco Screening.on 023 Adult depression screening assessment No [facility] [address] DO Work Phone: Tobacco use status [facility] b) No [facility] [address] DO Work Phone: Alanine aminotransferase [En zymatic activity/volume] in Serum or PlasmaOrdered By: Teresa Lynch on 09-27-2022 ALT [Catalytic activity/Vol] 15 U/L 7-[address] [facility] Albumin [Mass/volume] in Ser um or Plasma by Bromocresol green (BCG) dye binding methoOrdered By: Teresa Lynch on 09-27-2022 Albumin BCG dye [Mass/Vol] 4.1 g/dL 3.5-5.[address] [facility] Alkaline phosphatase [Enzyma tic activity/volume] in Serum or PlasmaOrdered By: Teresa Lynch on 09-27-2022 ALP [Catalytic activity/Vol] 116 U/L 34-[address] [facility] Aspartate aminotransferase [ Enzymatic activity/volume] in Serum or PlasmaOrdered By: Teresa Lynch on 09-27-2022 AST [Catalytic activity/Vol] 15 U/L 13-[address] [facility] Basophils Auto (Bld) [#/Vol] Ordered By: Teresa Lynch on 09-27-2022 Basophils (Bld) [#/Vol] 0.1 10*3/uL 0.0-0.[address] [facility] Basophils/100 WBC Auto (Bld) Ordered By: Teresa Lynch on 09-27-2022 Basophils/100 WBC (Bld) 1.1 % . [facility] Bilirubin.total [Mass/volume ] in Serum or PlasmaOrdered By: Teresa Lynch on 09-27-2022 Bilirubin [Mass/Vol] 0.4 mg/dL 0.3-1.0 [facility] Calcium [Mass/volume] in Ser um or PlasmaOrdered By: Teresa Lynch on 09-27-2022 Calcium [Mass/Vol] 8.8 mg/dL 8.6-10.3 [facility] Carbon dioxide, total [Moles /volume] in Serum or PlasmaOrdered By: Teresa Lynch on 09-27-2022 CO2 [Moles/Vol] 27.2 mmol/L 21.0-31.0 [facility] Chloride [Moles/volume] in S ilia or PlasmaOrdered By: Teresa Lynch on 09-27-2022 Chloride [Moles/Vol] 99 mmol/L 98-107 [facility] Cholesterol [Mass/volume] in Serum or PlasmaOrdered By: Teresa Lynch on 09-27-2022 Cholesterol [Mass/Vol] 104 mg/dL 140-200 [facility] Comment on above: Chol less than 200 m g/dl low riskChol 201-239 mg/dl borderline riskChol 240 mg/dl and greater high risk Cholesterol in LDL Calc [Mas s/Vol]Ordered By: Teresa Lynch on 09-27-2022 Cholesterol in LDL [Mass/Vol] TNP [facility] Comment on above: Test not performed Cholesterol in LDL [Mass/vol ume] in Serum or PlasmaOrdered By: Teresa Lynch on 09-27-2022 Cholesterol in LDL [Mass/Vol] 38 mg/dL 0-[address] [facility] Comment on above: LDL ATP III CLASSIFI CATIONLDL less than 100 mg/dL OptimalLDL 100-129 mg/dL Near or above optimalLDL 130-159 mg/dL Borderline highLDL 160-189 mg/dL HighLDL greater than 189 mg/dL Very high Cholesterol in VLDL Calc [Ma ss/Vol]Ordered By: Teresa Lynch on 09-27-2022 Cholesterol in VLDL [Mass/Vol] 99 mg/dL [facility] Creatinine [Mass/volume] in Serum or PlasmaOrdered By: Teresa Lynch on 09-27-2022 Creatinine [Mass/Vol] 1.84 mg/dL 0.70-1.30 [facility] Eosinophils Auto (Bld) [#/Vo l]Ordered By: Teresa Lynch on 09-27-2022 Eosinophils (Bld) [#/Vol] 0.7 10*3/uL 0.0-0.[address] [facility] Eosinophils/100 WBC Auto (Bl d)Ordered By: Teresa Lynch on 09-27-2022 Eosinophils/100 WBC (Bld) 5.9 % . [facility] Erythrocyte distribution wid th Auto (RBC) [Ratio]Ordered By: Teresa Lynch on 09-27-2022 Erythrocyte distribution width (RBC) [Ratio] 16.0 % 12.0-14.[address] [facility] Globulin Calc (S) [Mass/Vol] Ordered By: Teresa Lynch on 09-27-2022 Globulin (S) [Mass/Vol] 2.9 g/dL [facility] Glucose [Mass/volume] in Ser um or PlasmaOrdered By: Teresa Lynch on 09-27-2022 Glucose [Mass/Vol] 225 mg/dL 70-100 [facility] Comment on above: ADA recommended refe rence rangeRandom Glucose Reference Range is dependent on time and content of last meal. Glucose of more than 200 mg/dL in a nonstressed, ambulatory subject supports the diagnosis of Diabetes Mellitus. Hematocrit Auto (Bld) [Volum e fraction]Ordered By: Teresa Lynch on 09-27-2022 Hematocrit (Bld) [Volume fraction] 41.0 % 38.8-50.[address] [facility] Hemoglobin [Mass/volume] in BloodOrdered By: Teresa Lynch on 09-27-2022 Hemoglobin (Bld) [Mass/Vol] 13.2 g/dL 13.0-17.[address] [facility] Leukocytes [#/volume] correc jorge for nucleated erythrocytes in Blood by Automated counOrdered By: Teresa Lynch on 09-27-2022 WBC corrected for nucl RBC Auto (Bld) [#/Vol] 12.4 10*3/uL 4.1-10.[address] [facility] Lymphocytes Auto (Bld) [#/Vo l]Ordered By: Teresa Lynch on 09-27-2022 Lymphocytes (Bld) [#/Vol] 2.3 10*3/uL 1.00-4.[address] [facility] Lymphocytes/100 WBC Auto (Bl d)Ordered By: Teresa Lynch on 09-27-2022 Lymphocytes/100 WBC (Bld) 18.2 % . [facility] MCH Auto (RBC) [Entitic mass ]Ordered By: Teresa Lynch on 09-27-2022 MCH (RBC) [Entitic mass] 23.9 pg 27.5-35.[address] [facility] MCHC Auto (RBC) [Mass/Vol]Or dered By: Teresa Lynch on 09-27-2022 MCHC (RBC) [Mass/Vol] 32.2 g/dL 32.5-35.6 [facility] MCV Auto (RBC) [Entitic vol] Ordered By: Teresa Lynch on 09-27-2022 MCV (RBC) [Entitic vol] 74.3 fL 83.5-[address] [facility] Monocytes Auto (Bld) [#/Vol] Ordered By: Teresa Lynch on 09-27-2022 Monocytes (Bld) [#/Vol] 1.0 10*3/uL 0.0-0.[address] [facility] Monocytes/100 WBC Auto (Bld) Ordered By: Teresa Lynch on 09-27-2022 Monocytes/100 WBC (Bld) 7.9 % . [facility] Neutrophils Auto (Bld) [#/Vo l]Ordered By: Teresa Lynch on 09-27-2022 Neutrophils (Bld) [#/Vol] 8.3 10*3/uL 1.8-7.[address] [facility] Neutrophils/100 WBC Auto (Bl d)Ordered By: Teresa Lynch on 09-27-2022 Neutrophils/100 WBC (Bld) 66.9 % . [facility] No Panel InformationOrdered By: Teresa Lynch on 09-27-2022 Estimated GFR (CKD-EPI) 42.232 mL/Min [facility] Creatinine Clearance (Chem N/A [facility] Nucleated erythrocytes [Pres ence] in Blood by Automated countOrdered By: Teresa Lynch on 09-27-2022 Nucleated RBC Auto Ql (Bld) 0.1 /100{WBC} 0-0.[address] [facility] Platelet mean volume Auto (B ld) [Entitic vol]Ordered By: Teresa Lynch on 09-27-2022 Platelet mean volume (Bld) [Entitic vol] 9.1 fL 6.6-10.[address] [facility] Platelets Auto (Bld) [#/Vol] Ordered By: Teresa Lynch on 09-27-2022 Platelets (Bld) [#/Vol] 209 10*3/uL 150-450 [facility] [facility] Potassium [Moles/volume] in Serum or PlasmaOrdered By: Teresa Lynch on 09-27-2022 Potassium [Moles/Vol] 4.3 mmol/L 3.5-5.1 [facility] Protein [Mass/volume] in Ser um or PlasmaOrdered By: Teresa Lynch on 09-27-2022 Protein [Mass/Vol] 7.0 g/dL 6.4-8.9 [facility] RBC Auto (Bld) [#/Vol]Ordere d By: Teresa Lynch on 09-27-2022 RBC (Bld) [#/Vol] 5.52 10*6/uL 3.90-5.60 [facility] Serum or plasma albumin/glob ulin mass ratioOrdered By: Teresa Lynch on 09-27-2022 Albumin/Globulin [Mass ratio] 1.4 {ratio} [facility] Serum or plasma anion gap de terminationOrdered By: Teresa Lynch on 09-27-2022 Anion gap [Moles/Vol] 14.1 mmol/L 6.0-15.0 [facility] Serum or plasma high density lipoprotein (HDL) cholesterol measurementOrdered By: Teresa Lynch on 09-27-2022 Cholesterol in HDL [Mass/Vol] 21 mg/dL 29-[address] [facility] Comment on above: HDL CHOL ATP-III CLA SSIFICATION Cardiovascular RiskHDL > or equal to 60 mg/dL LOWHDL < 40 mg/dL HIGH Serum or plasma total choles terol/high density lipoprotein (HDL) cholesterol mass ratOrdered By: Teresa Lynch on 09-27-2022 Cholesterol.total/Chol esterol in HDL [Mass ratio] 5.0 {ratio} <5.[address] [facility] Sodium [Moles/volume] in Ser um or PlasmaOrdered By: Teresa Lynch on 09-27-2022 Sodium [Moles/Vol] 136 mmol/L 136-145 [facility] Thyrotropin [Units/volume] i n Serum or PlasmaOrdered By: Teresa Lynch on 09-27-2022 TSH Qn 3.62 m[IU]/L 0.45-5.[address] [facility] Triglyceride [Mass/volume] i n Serum or PlasmaOrdered By: Teresa Lynch on 09-27-2022 Triglyceride [Mass/Vol] 497 mg/dL 0-[address] [facility] Comment on above: If the triglyceride result is greater than 400, LDLC and related calculations cannot be calculated and resulted.TRIG ATP III CLASSIFICATIONTRIG less than 150 mg/dL NormalTRIG 150-199 mg/dL Borderline highTRIG 200-500 mg/dL High TRIG greater than 500 mg/dL Very highStandard traceable to the Center for Disease Conrtrol and Prevention (CDC) test method. Urate [Mass/volume] in Serum or PlasmaOrdered By: Teresa Lynch on 09-27-2022 Urate [Mass/Vol] 6.2 mg/dL 2.4-7.6 [facility] Urea nitrogen [Mass/volume] in Serum or PlasmaOrdered By: Teresa Lynch on 09-27-2022 Urea nitrogen [Mass/Vol] 15 mg/dL 12-[address] [facility] WBC Auto (Bld) [#/Vol]Ordere d By: Teresa Lynch on 09-27-2022 WBC (Bld) [#/Vol] 12.4 10*3/uL 4.1-10.5 [facility] A1C HEMOGLOBINon 02-15-2022 HbA1c (Bld) [Mass fraction] % [employer] Other HbA1c (Bld) [Mass fraction]o n 02-15-2022 A1C HEMOGLOBIN [employer] Other Tobacco Screening.on 022 Adult depression screening assessment No [facility] DO Work Phone: Tobacco use status [facility]PH[facility] b) No [facility] DO Work Phone: A1C HEMOGLOBINon 07-27-2021 HbA1c (Bld) [Mass fraction] 11.8 % [employer] Other HbA1c (Bld) [Mass fraction]o n 07-27-2021 A1C HEMOGLOBIN [employer] Other Vital Signs Date Time Vital Sign Value Performing Clinician Facility 05-27-2024 14:47-0500 Blood Pressure Location Yeyo ROWE [facility] 05-27-2024 14:47-0500 Body temperature 98.6 [degF] Yeyo ROWE [facility] 05-27-2024 14:47-0500 Diastolic blood pressure 69 mm[Hg] Yeyo ROWE [facility] 05-27-2024 14:47-0500 Heart rate 70 /min Yeyoneel ROWE [facility] 05-27-2024 14:47-0500 Respiratory rate 16 /min Yeyo ROWE [facility] 05-27-2024 14:47-0500 Systolic blood pressure 107 mm[Hg] Yeyo ROWE [facility] 04-24-2024 11:04-0500 Diastolic blood pressure 60 mm[Hg] Kait Dan MD Work Phone: [facility] 04-24-2024 11:04-0500 Heart rate 86 /min Kait Dan MD Work Phone: [facility] 04-24-2024 11:04-0500 SaO2% (BldA) [Mass fraction] 99 % Kait Dan MD Work Phone: [facility] 04-24-2024 11:04-0500 Systolic blood pressure 122 mm[Hg] Kait Dan MD Work Phone: [facility] 04-23-2024 14:30-0500 Diastolic blood pressure 67 mm[Hg] Kait Dan MD Work Phone: [facility] 04-23-2024 14:30-0500 Heart rate 74 /min Kait Dan MD Work Phone: [facility] 04-23-2024 14:30-0500 Respiratory rate 18 /min Kait Dan MD Work Phone: [facility] 04-23-2024 14:30-0500 SaO2% (BldA) [Mass fraction] 98 % Kait Dan MD Work Phone: [facility] 04-23-2024 14:30-0500 Systolic blood pressure 104 mm[Hg] Kait Dan MD Work Phone: [facility] 04-23-2024 12:52-0500 Body height 182.88 cm Kait Dan MD Work Phone: [facility] 04-23-2024 12:52-0500 Body weight 88.45 kg Kait Dan MD Work Phone: [facility] 04-04-2024 16:48-0400 Body weight 88.45 kg Kait Dan MD Work Phone: [facility] 04-04-2024 14:00-0400 Diastolic blood pressure 62 mm[Hg] Kait Dan MD Work Phone: [facility] 04-04-2024 14:00-0400 Heart rate 86 /min Kait Dan MD Work Phone: [facility] 04-04-2024 14:00-0400 Respiratory rate 18 /min Kait Dan MD Work Phone: [facility] 04-04-2024 14:00-0400 SaO2% (BldA) [Mass fraction] 97 % Kait Dan MD Work Phone: [facility] 04-04-2024 14:00-0400 Systolic blood pressure 100 mm[Hg] Kait Dan MD Work Phone: [facility] 03-21-2024 10:30-0400 Diastolic blood pressure 68 mm[Hg] MD Kait Dan Work Phone: [facility] 03-21-2024 10:30-0400 Heart rate 95 /min MD Kait Dan Work Phone: [facility] 03-21-2024 10:30-0400 Systolic blood pressure 103 mm[Hg] MD Kait Dan Work Phone: [facility] 03-19-2024 17:26-0400 Body temperature 98.01 [degF] Guero Furlong DO Work Phone: [facility] [employer] 03-19-2024 17:26-0400 Diastolic blood pressure 78 mm[Hg] Guero Furlong DO Work Phone: [facility] 03-19-2024 17:26-0400 Heart rate 85 /min Guero Furlong DO Work Phone: [facility] [employer] 03-19-2024 17:26-0400 Respiratory rate 19 /min Guero Furlong DO [facility] 03-19-2024 17:26-0400 SaO2% (BldA) [Mass fraction] 96 % Guero Furlong DO [facility] 03-19-2024 17:26-0400 Systolic blood pressure 124 mm[Hg] Guero Furlong DO Work Phone: [facility] [employer] 03-15-2024 18:27-0400 Body mass index (BMI) [Ratio] 26.75 kg/m2 Guero Furlong DO Work Phone: [facility] 03-15-2024 18:27-0400 Body temperature 98.01 [degF] Guero Furlong DO [facility] 03-15-2024 18:27-0400 Body weight 89.45 kg Guero Furlong DO Work Phone: [facility] [employer] 03-15-2024 18:27-0400 Diastolic blood pressure 94 mm[Hg] Guero Furlong DO Work Phone: [facility] 03-15-2024 18:27-0400 Heart rate 84 /min Gu[facility] Mclong DO [facility] 03-15-2024 18:27-0400 Respiratory rate 18 /min Guero Mclong DO [facility] Phone[facility] 03-15-2024 18:27-0400 SaO2% (BldA) [Mass fraction] 95 % Guero Mclong DO [facility] Phone[facility] 03-15-2024 18:27-0400 Systolic blood pressure 131 mm[Hg] Guero Harrisng DO [facility] 03-13-2024 11:08-0400 Body temperature 97.8 [degF] MD Kait Dan Work Phone: [facility] 03-13-2024 11:08-0400 Diastolic blood pressure 82 mm[Hg] MD Kait Dan Work Phone: [facility] 03-13-2024 11:08-0400 Heart rate 77 /min MD Kait Dan Work Phone: [facility] 03-13-2024 11:08-0400 Respiratory rate 16 /min MD Kait Dan Work Phone: [facility] 03-13-2024 11:08-0400 SaO2% (BldA) [Mass fraction] 99 % MD Kait Dan Work Phone: [facility] 03-13-2024 11:08-0400 Systolic blood pressure 149 mm[Hg] MD Kait Dan Work Phone: [facility] 03-13-2024 06:00-0400 Body weight 90.2 kg MD Kait Dan Work Phone: [facility] 03-09-2024 12:29-0400 Body height 180.34 cm MD Kait Dan Work Phone: [facility] 03-08-2024 21:00-0400 Diastolic blood pressure 72 mm[Hg] MD Kait Dan Work Phone: [facility] 03-08-2024 21:00-0400 Heart rate 93 /min MD Kait Dan Work Phone: [facility] 03-08-2024 21:00-0400 SaO2% (BldA) [Mass fraction] 97 % MD Kait Dan Work Phone: [facility] 03-08-2024 21:00-0400 Systolic blood pressure 134 mm[Hg] MD Kait Dan Work Phone: [facility] 03-08-2024 20:30-0400 Respiratory rate 16 /min MD Kait Dan Work Phone: [facility] 03-08-2024 20:07-0400 Body temperature 98.4 [degF] MD Kait Dan Work Phone: [facility] 03-08-2024 14:10-0400 Body height 180.34 cm MD Kait Dan Work Phone: [facility] 03-08-2024 14:10-0400 Body weight 89.3 kg MD Kait Dan Work Phone: [facility] 03-06-2024 15:51-0400 Body temperature 98.1 [degF] MD Kait Dan Work Phone: [facility] 03-06-2024 15:51-0400 Diastolic blood pressure 73 mm[Hg] MD Kait Dan Work Phone: [facility] 03-06-2024 15:51-0400 Heart rate 78 /min MD Kait Dan Work Phone: [facility] 03-06-2024 15:51-0400 Respiratory rate 16 /min MD Kait Dan Work Phone: [facility] 03-06-2024 15:51-0400 SaO2% (BldA) [Mass fraction] 97 % MD Kait Dan Work Phone: [facility] 03-06-2024 15:51-0400 Systolic blood pressure 140 mm[Hg] MD Kait Dan Work Phone: [facility] 03-06-2024 05:29-0400 Body weight 90.9 kg MD Kait Dan Work Phone: [facility] 03-05-2024 14:26-0400 Body height 182.88 cm MD Kait Dan Work Phone: [facility] 03-03-2024 17:00-0400 Diastolic blood pressure 67 mm[Hg] MD Kait Dan Work Phone: [facility] 03-03-2024 17:00-0400 Heart rate 86 /min MD Kait Dan Work Phone: [facility] 03-03-2024 17:00-0400 Respiratory rate 20 /min MD Kait Dan Work Phone: [facility] 03-03-2024 17:00-0400 SaO2% (BldA) [Mass fraction] 100 % MD Kait Dan Work Phone: [facility] 03-03-2024 17:00-0400 Systolic blood pressure 100 mm[Hg] MD Kait Dan Work Phone: [facility] 03-03-2024 13:45-0400 Body height 182.88 cm MD Kait Dan Work Phone: [facility] 03-03-2024 13:45-0400 Body temperature 97.9 [degF] MD Kait Dan Work Phone: [facility] 03-03-2024 13:45-0400 Body weight 91.5 kg MD Kait Dan Work Phone: [facility] 02-29-2024 09:27-0400 Body height 182.9 cm Mike [facility]es MD [facility] 02-29-2024 09:27-0400 Body mass index (BMI) [Ratio] 26.85 kg/m2 Mike Montes MD Work Phone: [facility] 02-29-2024 09:27-0400 Body temperature 98.01 [degF] Mike Montes MD Work Phone: [facility] 02-29-2024 09:27-0400 Body weight 89.81 kg Mike Montes MD Work Phone: [facility] 02-29-2024 09:27-0400 Diastolic blood pressure 62 mm[Hg] Miek Montes MD Work Phone: [facility] 02-29-2024 09:27-0400 Heart rate 77 /min Mike Montes MD Work Phone: [facility] 02-29-2024 09:27-0400 Respiratory rate 20 /min Mike Montes MD Work Phone: [facility] 02-29-2024 09:27-0400 SaO2% (BldA) [Mass fraction] 99 % Mike Montes MD Work Phone: [facility] 02-29-2024 09:27-0400 Systolic blood pressure 90 mm[Hg] Mike Montes MD Work Phone: [facility] 02-28-2024 14:52-0400 Body mass index (BMI) [Ratio] 26.65 kg/m2 Guero Furlong DO Work Phone: [facility] 02-28-2024 14:52-0400 Body temperature 98.01 [degF] Guero Furlong DO Work Phone: [facility] 02-28-2024 14:52-0400 Body weight 89.13 kg Guero Furlong DO Work Phone: [facility] 02-28-2024 14:52-0400 Diastolic blood pressure 77 mm[Hg] Guero Furlong DO Work Phone: [facility] 02-28-2024 14:52-0400 Heart rate 95 /min Guero Furlong DO Work Phone: [facility] 02-28-2024 14:52-0400 Respiratory rate 18 /min Guero Furlong DO Work Phone: [facility] 02-28-2024 14:52-0400 SaO2% (BldA) [Mass fraction] 98 % Guero Furlong DO Work Phone: [facility] 02-28-2024 14:52-0400 Systolic blood pressure 129 mm[Hg] Guero Furlong DO Work Phone: [facility] 02-21-2024 17:40-0400 Hourly Rounding Mike Simon [facility] 02-21-2024 17:40-0400 Promise to Return Mohamed Simon [facility] 02-21-2024 16:32-0400 Hourly Rounding Albertamed Simon [facility] 02-21-2024 16:32-0400 Promise to Return Mohamed Simon [facility] 02-21-2024 15:00-0400 Hourly Rounding Mohamed Simon [facility] 02-21-2024 15:00-0400 Promise to Return Mohamed Simon [facility] 02-21-2024 10:51-0400 Heart rate 70 /min Mohamed Simon [facility] 02-21-2024 10:51-0400 SaO2% (BldA) [Mass fraction] 100 % Mohamed Simon [facility] 02-21-2024 10:47-0400 Body temperature 98.06 [degF] Mohamed Simon [facility] 02-21-2024 10:46-0400 Diastolic blood pressure 63 mm[Hg] Mohamed Simon [facility] 02-21-2024 10:46-0400 Mean blood pressure 76 mm[Hg] Mohamed Simon [facility] 02-21-2024 10:46-0400 Systolic blood pressure 101 mm[Hg] Mohamed Simon [facility] 02-21-2024 10:15-0400 Blood Pressure Location Mohamed Simon [facility] 02-21-2024 10:15-0400 Diastolic blood pressure 58 mm[Hg] Mohamed Simon [facility] 02-21-2024 10:15-0400 Heart rate 76 /min Mohamed Simon [facility] 02-21-2024 10:15-0400 Mean blood pressure 74 mm[Hg] Mohamed Simon [facility] 02-21-2024 10:15-0400 SaO2% (BldA) [Mass fraction] 100 % Mohamed Simon [facility] 02-21-2024 10:15-0400 Systolic blood pressure 106 mm[Hg] Mohamed Simon [facility] 02-21-2024 08:27-0400 Diastolic blood pressure 61 mm[Hg] Mohamed Simon [facility] 02-21-2024 08:27-0400 Systolic blood pressure 100 mm[Hg] Mohamed Simon [facility] 02-21-2024 08:25-0400 Heart rate 50 /min Mohamed Simon [facility] 02-21-2024 07:36-0400 Heart rate 68 /min Mohamed Simon [facility] 02-21-2024 07:36-0400 SaO2% (BldA) [Mass fraction] 100 % Mike Montes [facility] 02-21-2024 07:36-0400 Mean blood pressure 74 mm[Hg] Mike Montes [facility] 02-21-2024 07:36-0400 Body temperature 97.52 [degF] Mike Montes [facility] 02-21-2024 00:00-0400 Blood Pressure Location Mike Montes [facility] 02-21-2024 00:00-0400 Body temperature 97.52 [degF] Mike Montes [facility] 02-21-2024 00:00-0400 Mean blood pressure 77 mm[Hg] Mike Montes [facility] 02-20-2024 21:16-0400 Heart rate 83 /min Mike Montes [facility] 02-20-2024 19:29-0400 Mean blood pressure 82 mm[Hg] Mike Montes [facility] 02-20-2024 19:29-0400 Body temperature 98.06 [degF] Mike Montes [facility] 02-20-2024 15:37-0400 gluc 104 mg/dL Mike Simon [facility] 02-20-2024 11:00-0400 Body temperature 98.42 [degF] Mike Halean [facility] 02-20-2024 11:00-0400 gluc 165 mg/dL Mike Halean [facility] 02-20-2024 11:00-0400 Mean blood pressure 81 mm[Hg] Mike Simon [facility] 02-20-2024 09:36-0400 Heart rate 96 /min Mohamed Simon [facility] 02-20-2024 09:00-0400 gluc 250 mg/dL Mohamed Simon [facility] 02-20-2024 09:00-0400 Respiratory rate 16 /min Mike Simon [facility] 02-20-2024 05:00-0400 Respiratory rate 18 /min Mike Simon [facility] 02-19-2024 23:00-0400 Respiratory rate 18 /min Mike Simon [facility] 02-15-2024 05:17-0400 Heart rate 83 /min Mike Simon [facility] 02-15-2024 00:28-0400 Heart rate 83 /min Mike Simon [facility] 02-14-2024 06:15-0400 Heart rate 89 /min Mike Simon [facility] 02-12-2024 16:40-0400 Respiratory rate 17 /min Mike Simon [facility] 02-12-2024 16:15-0400 Body temperature 97.7 [degF] Mohcarlos Simon [facility] 02-12-2024 16:15-0400 Respiratory rate 19 /min Mohamed Simon [facility] 02-12-2024 16:00-0400 Respiratory rate 18 /min Mike Simon [facility] 02-12-2024 14:46-0400 Body temperature 98.06 [degF] Mohamed Simon [facility] 01-18-2024 08:56-0400 Body height 182.9 cm Mike Montes MD Work Phone: [facility] 01-18-2024 08:56-0400 Body mass index (BMI) [Ratio] 27.8 kg/m2 Mike Montes MD Work Phone: [facility] 01-18-2024 08:56-0400 Body weight 92.99 kg Mike Montes MD Work Phone: [facility] 01-18-2024 08:56-0400 Diastolic blood pressure 67 mm[Hg] Mike Montes MD Work Phone: [facility] 01-18-2024 08:56-0400 Heart rate 122 /min Mike Montes MD Work Phone: [facility] 01-18-2024 08:56-0400 SaO2% (BldA) [Mass fraction] 100 % Mike Montes MD Work Phone: [facility] 01-18-2024 08:56-0400 Systolic blood pressure 108 mm[Hg] Mike Montes MD Work Phone: [facility] 01-17-2024 12:34-0400 Body height 182.[address] 01-17-2024 12:34-0400 Body mass index (BMI) [Ratio] 28.62 kg/m2 [address] 01-17-2024 12:34-0400 Body weight 95.[address] 01-17-2024 12:34-0400 Diastolic blood pressure 58 mm[Hg] [address] 01-17-2024 12:34-0400 Systolic blood pressure 102 mm[Hg] [address] 11-30-2023 23:10-0400 Body mass index (BMI) [Ratio] 27.86 kg/m2 Guero Tam DO Work Phone: [facility] 11-30-2023 23:10-0400 Body temperature 97.3 [degF] Guero Furlong DO Work Phone: [facility] 11-30-2023 23:10-0400 Body weight 93.17 kg Guero Furlong DO Work Phone: [facility] 11-30-2023 23:10-0400 Diastolic blood pressure 74 mm[Hg] Guero Furlong DO Work Phone: [facility] 11-30-2023 23:10-0400 Heart rate 70 /min Guero Furlong DO Work Phone: [facility] 11-30-2023 23:10-0400 Respiratory rate 18 /min Guero Furlong DO Work Phone: [facility] 11-30-2023 23:10-0400 SaO2% (BldA) [Mass fraction] 98 % Guero Furlong DO Work Phone: [facility] 11-30-2023 23:10-0400 Systolic blood pressure 122 mm[Hg] Guero Furlong DO Work Phone: [facility] 11-30-2023 08:49-0400 Body height 182.9 cm Mike Montes MD Work Phone: [facility] 11-30-2023 08:49-0400 Body mass index (BMI) [Ratio] 28.21 kg/m2 Mike Montes MD Work Phone: [facility] 11-30-2023 08:49-0400 Body weight 94.35 kg Mike Montes MD Work Phone: [facility] 11-30-2023 08:49-0400 Diastolic blood pressure 78 mm[Hg] Mike Montes MD Work Phone: [facility] 11-30-2023 08:49-0400 Heart rate 94 /min Mike Montes MD Work Phone: [facility] 11-30-2023 08:49-0400 SaO2% (BldA) [Mass fraction] 99 % Mike Montes MD Work Phone: [facility] [employer] 11-30-2023 08:49-0400 Systolic blood pressure 109 mm[Hg] Mike Montes MD Work Phone: [facility] [employer] 11-24-2023 18:59-0400 Body mass index (BMI) [Ratio] 27.85 kg/m2 Guero Furlong DO Work Phone: [facility] [employer] 11-24-2023 18:59-0400 Body temperature 98.4 [degF] Guero Furlong DO Work Phone: [facility] 11-24-2023 18:59-0400 Body weight 93.17 kg Guero Furlong DO Work Phone: [facility] [employer] 11-24-2023 18:59-0400 Diastolic blood pressure 70 mm[Hg] Guero Furlong DO Work Phone: [facility] [employer] 11-24-2023 18:59-0400 Heart rate 68 /min Guero Furlong DO Work Phone: [facility] [employer] 11-24-2023 18:59-0400 Systolic blood pressure 122 mm[Hg] Guero Furlong DO Work Phone: [facility] [employer] 11-07-2023 15:50-0400 Body temperature 98.4 [degF] Guero Furlong DO Work Phone: [facility] [employer] 11-07-2023 15:50-0400 Diastolic blood pressure 97 mm[Hg] Guero Furlong DO Work Phone: [facility] 11-07-2023 15:50-0400 Heart rate 77 /min Guero Furlong DO Work Phone: [facility] 11-07-2023 15:50-0400 Systolic blood pressure 157 mm[Hg] Guero Furlong DO Work Phone: [facility] 11-03-2023 14:11-0400 Body mass index (BMI) [Ratio] 28.02 kg/m2 Guero Furlong DO Work Phone: [facility] 11-03-2023 14:11-0400 Body temperature 97.7 [degF] Guero Furlong DO Work Phone: [facility] 11-03-2023 14:11-0400 Body weight 93.71 kg Guero Furlong DO Work Phone: [facility] 11-03-2023 14:11-0400 Diastolic blood pressure 76 mm[Hg] Guero Furlong DO Work Phone: [facility] 11-03-2023 14:11-0400 Heart rate 75 /min Guero Furlong DO Work Phone: [facility] 11-03-2023 14:11-0400 Respiratory rate 20 /min Guero Furlong DO Work Phone: [facility] 11-03-2023 14:11-0400 SaO2% (BldA) [Mass fraction] 97 % Guero Furlong DO Work Phone: [facility] 11-03-2023 14:11-0400 Systolic blood pressure 122 mm[Hg] Guero Furlong DO Work Phone: [facility] 10-25-2023 22:00-0400 Body mass index (BMI) [Ratio] 29.7 kg/m2 Guero Furlong DO Work Phone: [facility] 10-25-2023 22:00-0400 Body temperature 97.59 [degF] Guero Furlong DO Work Phone: [facility] 10-25-2023 22:00-0400 Body weight 99.34 kg Guero Furlong DO Work Phone: [facility] 10-25-2023 22:00-0400 Diastolic blood pressure 68 mm[Hg] Gu[facility] Furlong [facility] 10-25-2023 22:00-0400 Heart rate 70 /min Guero Furlong DO Work Phone: [facility] 10-25-2023 22:00-0400 Respiratory rate 20 /min Guero Furlong DO Work Phone: [facility] 10-25-2023 22:00-0400 SaO2% (BldA) [Mass fraction] 97 % Guero Furlong DO Work Phone: [facility] [facility] 10-25-2023 22:00-0400 Systolic blood pressure 128 mm[Hg] Guero Furlong DO Work Phone: [facility] 10-24-2023 10:56-0400 Body height 182.9 cm Vanessa Inman MD Work Phone: [facility] 10-24-2023 10:56-0400 Diastolic blood pressure 86 mm[Hg] Vanessa Inman MD Work Phone: [facility] 10-24-2023 10:56-0400 Heart rate 104 /min Vanessa Inman MD Work Phone: [facility] 10-24-2023 10:56-0400 Systolic blood pressure 134 mm[Hg] Vanessa Inman MD Work Phone: [facility] 10-23-2023 09:37-0400 Blood Pressure Location Mike Montes [facility] 10-23-2023 09:37-0400 Diastolic blood pressure 82 mm[Hg] Mike Montes [facility] 10-23-2023 09:37-0400 Heart rate 107 /min Mike Montes [facility] 10-23-2023 09:37-0400 SaO2% (BldA) [Mass fraction] 98 % Mike Montes [facility] 10-23-2023 09:37-0400 Systolic blood pressure 130 mm[Hg] Mike Montes [facility] 10-18-2023 08:26-0400 Diastolic blood pressure 90 mm[Hg] Mike Montes MD Work Phone: [facility] 10-18-2023 08:26-0400 Systolic blood pressure 138 mm[Hg] Mike Montes MD Work Phone: [facility] 10-18-2023 08:25-0400 Body height 182.9 cm Mike Montes MD Work Phone: [facility] 10-18-2023 08:25-0400 Body mass index (BMI) [Ratio] 28.07 kg/m2 Mike Montes MD Work Phone: [facility] 10-18-2023 08:25-0400 Body weight 93.89 kg Mike Montes MD Work Phone: [facility] 10-17-2023 13:51-0400 Body temperature 98.4 [degF] Guero Furlong DO Work Phone: [facility] 10-17-2023 13:51-0400 Body weight 93.89 kg Guero Furlong DO Work Phone: [facility] 10-17-2023 13:51-0400 Diastolic blood pressure 70 mm[Hg] Guero Furlong DO Work Phone: [facility] 10-17-2023 13:51-0400 Heart rate 94 /min Guero Furlong DO Work Phone: [facility] 10-17-2023 13:51-0400 Respiratory rate 18 /min Guero Furlong DO Work Phone: [facility] 10-17-2023 13:51-0400 SaO2% (BldA) [Mass fraction] 97 % Guero Furlong DO Work Phone: [facility] 10-17-2023 13:51-0400 Systolic blood pressure 132 mm[Hg] Guero Furlong DO Work Phone: [facility] 10-10-2023 23:33-0400 Body temperature 98.1 [degF] Guero Furlong DO Work Phone: [facility] 10-10-2023 23:33-0400 Diastolic blood pressure 78 mm[Hg] Guero Furlong DO Work Phone: [facility] 10-10-2023 23:33-0400 Heart rate 102 /min Guero Furlong DO Work Phone: [facility] 10-10-2023 23:33-0400 Respiratory rate 18 /min Guero Furlong DO Work Phone: [facility] 10-10-2023 23:33-0400 SaO2% (BldA) [Mass fraction] 98 % Guero Furlong DO Work Phone: [facility] 10-10-2023 23:33-0400 Systolic blood pressure 142 mm[Hg] Guero Furlong DO Work Phone: [facility] 10-06-2023 16:50-0400 Body temperature 98.4 [degF] Guero Furlong DO Work Phone: [facility] 10-06-2023 16:50-0400 Body weight 93.89 kg Guero Furlong DO Work Phone: [facility] 10-06-2023 16:50-0400 Diastolic blood pressure 71 mm[Hg] Guero Furlong DO Work Phone: [facility] 10-06-2023 16:50-0400 Heart rate 98 /min Guero Furlong DO Work Phone: [facility] 10-06-2023 16:50-0400 Respiratory rate 18 /min Guero Furlong DO Work Phone: [facility] 10-06-2023 16:50-0400 SaO2% (BldA) [Mass fraction] 96 % Guero Furlong DO Work Phone: [facility] 10-06-2023 16:50-0400 Systolic blood pressure 117 mm[Hg] Guero Furlong DO Work Phone: [facility] 07-31-2023 12:00-0500 Diastolic blood pressure 63 mm[Hg] DO Teresa Kuns Work Phone: [facility] 07-31-2023 12:00-0500 Heart rate 75 /min DO Teresa Kuns Work Phone: [facility] 07-31-2023 12:00-0500 Systolic blood pressure 108 mm[Hg] DO Teresa Kuns Work Phone: [facility] 07-31-2023 08:33-0500 Respiratory rate 18 /min DO Teresa Kuns Work Phone: [facility] 07-12-2023 18:03-0500 Diastolic blood pressure 73 mm[Hg] DO Teresa Kuns Work Phone: [facility] 07-12-2023 18:03-0500 Heart rate 76 /min DO Teresa Kuns Work Phone: [facility] 07-12-2023 18:03-0500 Respiratory rate 20 /min DO Teresa Kuns Work Phone: [facility] 07-12-2023 18:03-0500 SaO2% (BldA) [Mass fraction] 98 % DO Teresa Kuns Work Phone: [facility] 07-12-2023 18:03-0500 Systolic blood pressure 125 mm[Hg] DO Teresa Kuns Work Phone: [facility] 07-12-2023 16:15-0500 Body height 182.88 cm DO Teresa Lynch Work Phone: [facility] 07-12-2023 16:15-0500 Body temperature 98.9 [degF] DO Teresa Lynch Work Phone: [facility] 07-12-2023 16:15-0500 Body weight 99.25 kg DO Teresa Lynch Work Phone: [facility] 06-02-2023 10:56-0500 Blood Pressure Location Yeyo ROWE [facility] 06-02-2023 10:56-0500 Body temperature 96.98 [degF] Yeyo ROWE [facility] 06-02-2023 10:56-0500 Diastolic blood pressure 84 mm[Hg] Yeyo ROWE [facility] 06-02-2023 10:56-0500 Heart rate 68 /min Yeyo ROWE [facility] 06-02-2023 10:56-0500 Systolic blood pressure 124 mm[Hg] Yeyo ROWE [facility] 04-06-2023 13:15-0400 Body height 180.34 cm Teresa Lynch Other [employer] Other 04-06-2023 13:15-0400 Body mass index (BMI) [Ratio] 29.43 kg/m2 Teresa Lynch Other [employer] Other 04-06-2023 13:15-0400 Body weight 95.71 kg Teresa Lynch Other [employer] Other 04-06-2023 13:15-0400 Diastolic blood pressure 70 mm[Hg] Teresa Lynch Other [employer] Other 04-06-2023 13:15-0400 Respiratory rate 18 /min Teresa Lynch Other [employer] Other 04-06-2023 13:15-0400 SaO2% (BldA) [Mass fraction] 97 % Teresa Lynch Other [employer] Other 04-06-2023 13:15-0400 Systolic blood pressure 100 mm[Hg] Teresa Lynch Other [employer] Other 03-15-2023 08:30-0400 Body height 180.34 cm Teresa Lynch Other [employer] Other 03-15-2023 08:30-0400 Body mass index (BMI) [Ratio] 29.01 kg/m2 Teresa Lynch Other [employer] Other 03-15-2023 08:30-0400 Body weight 94.35 kg Teresa Lynch Other [employer] Other 03-15-2023 08:30-0400 Diastolic blood pressure 62 mm[Hg] Teresa Lynch Other [employer] Other 03-15-2023 08:30-0400 Respiratory rate 16 /min Teresa Lynch Other [employer] Other 03-15-2023 08:30-0400 SaO2% (BldA) [Mass fraction] 97 % Teresa Lynch Other [employer] Other 03-15-2023 08:30-0400 Systolic blood pressure 88 mm[Hg] Teresa Lynch Other [facility] [employer] Other 02-15-2023 10:04-0400 Body height 182.88 cm Teresa Guerra Rory Work Phone: [facility] 250 DO Work Phone: 02-15-2023 10:04-0400 Body mass index (BMI) [Ratio] 28.62 kg/m2 Teresa Fraustocamille Work Phone: [facility] 250 DO Work Phone: 02-15-2023 10:04-0400 Body surface area Derived from formula 2.18 m2 Teresa Lynch Work Phone: [facility] 250 DO Work Phone: 02-15-2023 10:04-0400 Body weight 95.71 kg Teresa Mari Lynch Work Phone: [facility] 250 DO Work Phone: 02-15-2023 10:04-0400 Diastolic blood pressure 70 mm[Hg] Teresa Guerra Rory Work Phone: [facility] 250 DO Work Phone: 02-15-2023 10:04-0400 Heart rate 76 /min Teresa Fraustocamille Work Phone: [facility] 250 DO Work Phone: 02-15-2023 10:04-0400 Systolic blood pressure 102 mm[Hg] Teresa Fraustocamille Work Phone: [facility] 250 DO Work Phone: 01-30-2023 10:23-0400 Blood Pressure Location Yeyo SOLEDAD [facility] 01-30-2023 10:23-0400 Diastolic blood pressure 74 mm[Hg] Yeyo ROWE [facility] 01-30-2023 10:23-0400 Heart rate 68 /min Yeyo ROWE [facility] 01-30-2023 10:23-0400 Respiratory rate 16 /min Yeyo ROWE [facility] 01-30-2023 10:23-0400 Systolic blood pressure 130 mm[Hg] Yeyo ROWE [facility] 01-11-2023 15:08-0400 Body height 180.34 cm Teresa Lynch Work Phone: [facility] 600 DO Work Phone: 01-11-2023 15:08-0400 Body mass index (BMI) [Ratio] 30.13 kg/m2 Teresa Lynch Work Phone: [facility] 600 DO Work Phone: 01-11-2023 15:08-0400 Body surface area Derived from formula 2.18 m2 Teresa Lynch Work Phone: [facility] 600 DO Work Phone: 01-11-2023 15:08-0400 Body weight 97.98 kg Teresa Lynch Work Phone: [facility] [employer] 600 DO Work Phone: 01-11-2023 15:08-0400 Diastolic blood pressure 86 mm[Hg] Teresa Lynch Work Phone: [facility] 600 DO Work Phone: 01-11-2023 15:08-0400 Heart rate 74 /min Teresa Lynch Work Phone: [facility] [employer] 600 DO Work Phone: 01-11-2023 15:08-0400 Systolic blood pressure 122 mm[Hg] Teresa Lynch [facility] 600 DO Work Phone: 12-01-2022 12:45-0400 Body height 180.34 cm Teresa Lynch Other [employer] Other 12-01-2022 12:45-0400 Body mass index (BMI) [Ratio] 29.73 kg/m2 Teresa Lynch Other [employer] Other 12-01-2022 12:45-0400 Body weight 96.71 kg Teresa Lynch Other [employer] Other 12-01-2022 12:45-0400 Diastolic blood pressure 70 mm[Hg] Teresa Lynch Other [employer] Other 12-01-2022 12:45-0400 Respiratory rate 18 /min Teresa Lynch Other [employer] Other 12-01-2022 12:45-0400 SaO2% (BldA) [Mass fraction] 94 % Teresa Lynch Other [employer] Other 12-01-2022 12:45-0400 Systolic blood pressure 122 mm[Hg] Teresa Lynch Other [employer] Other 11-23-2022 11:38-0400 Blood Pressure Location Yeyo ROWE [facility] 11-23-2022 11:38-0400 Diastolic blood pressure 85 mm[Hg] Yeyo ROWE [facility] 11-23-2022 11:38-0400 Heart rate 76 /min Yeyo ROWE [facility] 11-23-2022 11:38-0400 Systolic blood pressure 130 mm[Hg] Yeyo ROWE [facility] 07-04-2022 10:30-0500 Body height 180.34 cm Teresa Lynch Other [employer] Other 07-04-2022 10:30-0500 Body mass index (BMI) [Ratio] 29.43 kg/m2 Teresa Lynch Other [employer] Other 07-04-2022 10:30-0500 Body weight 95.71 kg Teresa Lynch Other [employer] Other 07-04-2022 10:30-0500 Diastolic blood pressure 86 mm[Hg] Teresa Lynch Other [employer] Other 07-04-2022 10:30-0500 Respiratory rate 16 /min Teresa Lynch Other [employer] Other 07-04-2022 10:30-0500 Systolic blood pressure 146 mm[Hg] Teresa Lynch Other [employer] Other 02-15-2022 13:45-0400 Body height 180.34 cm Teresa Lynch Other [employer] Other 02-15-2022 13:45-0400 Body mass index (BMI) [Ratio] 30.12 kg/m2 Teresa Jettcamille Other [employer] Other 02-15-2022 13:45-0400 Body weight 97.98 kg Teresa Lynch Other [employer] Other 02-15-2022 13:45-0400 Diastolic blood pressure 62 mm[Hg] Teresa Jettcamille Other [employer] Other 02-15-2022 13:45-0400 Respiratory rate 16 /min Teresa Jettcamille Other [employer] Other 02-15-2022 13:45-0400 SaO2% (BldA) [Mass fraction] 96 % Teresa Jettcamille Other [employer] Other 02-15-2022 13:45-0400 Systolic blood pressure 100 mm[Hg] Teresa Jettcamille Other [employer] Other 10-26-2021 10:01-0400 Body height 180.34 cm Teresa Guerra Rory [facility] Phone: [facility] [employer] 250 DO Work Phone: 10-26-2021 10:01-0400 Body mass index (BMI) [Ratio] 29.99 kg/m2 Teresa Mari Lynch Work Phone: [facility] [employer] 250 DO Work Phone: 10-26-2021 10:01-0400 Body surface area Derived from formula 2.17 m2 Teresa Guerra Rory Work Phone: [facility] [employer] 250 DO Work Phone: 10-26-2021 10:01-0400 Body weight 97.52 kg Teresa Lynch Work Phone: [facility] 250 DO Work Phone: 10-26-2021 10:01-0400 Diastolic blood pressure 70 mm[Hg] Teresa Lynch Work Phone: [facility] 250 DO Work Phone: 10-26-2021 10:01-0400 Heart rate 68 /min Teresa Lynch Work Phone: [facility] 250 DO Work Phone: 10-26-2021 10:01-0400 Systolic blood pressure 104 mm[Hg] Teresa Lynch Work Phone: [facility] [employer] 250 DO Work Phone: 10-19-2021 12:20-0400 Body height 180.34 cm Invocajuan Arganteal Other [facility] [employer] Other 10-19-2021 12:20-0400 Body mass index (BMI) [Ratio] 30.65 kg/m2 Amina Arganteal Other [facility] [employer] Other 10-19-2021 12:20-0400 Body temperature 96.8 [degF] Amina Arganteal Other [employer] Other 10-19-2021 12:20-0400 Body weight 99.7 kg Azjuan Arganteal Other [employer] Other 10-19-2021 12:20-0400 Diastolic blood pressure 71 mm[Hg] Azjuan Arganteal Other [employer] Other 10-19-2021 12:20-0400 Respiratory rate 18 /min Amina Kinseycamille Other [employer] Other 10-19-2021 12:20-0400 SaO2% (BldA) [Mass fraction] 98 % Amina Fagan Other [employer] Other 10-19-2021 12:20-0400 Systolic blood pressure 111 mm[Hg] Amina Kinseycamille Other [employer] Other 07-27-2021 14:00-0500 Body height 180.34 cm Teresa Lynch Other [employer] Other 07-27-2021 14:00-0500 Body mass index (BMI) [Ratio] 30.4 kg/m2 Teresa Lynch Other [employer] Other 07-27-2021 14:00-0500 Body weight 98.88 kg Teresa Lynch Other [employer] Other 07-27-2021 14:00-0500 Diastolic blood pressure 76 mm[Hg] Teresa Lynch Other [employer] Other 07-27-2021 14:00-0500 Respiratory rate 18 /min Teresa Lynch Other [employer] Other 07-27-2021 14:00-0500 SaO2% (BldA) [Mass fraction] 98 % Teresa Lynch Other [employer] Other 07-27-2021 14:00-0500 Systolic blood pressure 112 mm[Hg] Teresa Lynch Other [employer] Other Encounters Encounter Date Encounter Type Care Provider Facility Start: 05-27-2024 End: 05-27-2024 ambulatory Yeyo ROWE Facility:[facility] Start: 05-27-2024 End: 05-27-2024 Lab Drop off Yeyo ROWE [facility] Start: 05-27-2024 End: 05-27-2024 ambulatory Yeyoneel ROWE Facility:[facility] Start: 05-27-2024 End: 05-27-2024 Patient encounter procedure Yeyo ROWE [facility] Start: 04-24-2024 End: 04-24-2024 ambulatory Kait Dan MD Work Phone: [facility] Work Phone: Start: 04-24-2024 End: 04-24-2024 Patient encounter procedure Kait Dan MD Work Phone: [facility] Work Phone: Start: 04-23-2024 Non-patient / Non-visit Kait Dan MD Work Phone: [facility] Work Phone: Start: 04-23-2024 End: 04-23-2024 Admission to same day surgery center Kait Dan MD Work Phone: [facility] Work Phone: Start: 04-23-2024 End: 04-23-2024 ambulatory Kait Dan MD Work Phone: [facility] Work Phone: Start: 04-19-2024 Non-patient / Non-visit Kait Dan MD Work Phone: [facility] [place] Work Phone: Start: 04-04-2024 End: 04-04-2024 ambulatory MD Kait Dan Work Phone: [facility] Work Phone: Start: 04-04-2024 End: 04-04-2024 Patient encounter procedure MD Kait Dan Work Phone: [facility] [place] Work Phone: Start: 03-29-2024 Non-patient / Non-visit MD Jeremi Dan Work Phone: [facility] [place] Work Phone: Start: 03-22-2024 End: 03-22-2024 Telephone encounter Feli blum Comment on above: Blood Sugar Problem (High blood sugars) Start: 03-21-2024 End: 03-21-2024 ambulatory MD Kait Dan Work Phone: [facility] Work Phone: Comment on above: History of right bel ow knee amputation ([facility]) (Primary Dx) Start: 03-21-2024 End: 03-21-2024 Patient encounter procedure MD Kait Dan Work Phone: [facility] Work Phone: Start: 03-21-2024 End: 03-21-2024 MD Kait Dan Work Phone: [facility] Work Phone: Start: 03-19-2024 End: 03-19-2024 ambulatory Guero Mckayleeng DO Work Phone: [facility] Comment on above: Diabetic polyneuropa thy associated with type 2 diabetes mellitus ([facility]) (Primary Dx); Encounter for orthopedic aftercare following surgical amputation; Other abnormalities of gait and mobility; Restless leg syndrome Start: 03-15-2024 End: 03-15-2024 ambulatory Guero Ines Furkayleeng DO Work Phone: [facility] Comment on above: Diabetic polyneuropa thy associated with type 2 diabetes mellitus ([facility]) (Primary Dx); Disorientation; Other abnormalities of gait and mobility; Status post partial amputation of right foot ([facility]); Atherosclerosis of [place] coronary artery of [place] heart without angina pectoris; Atrial fibrillation ([facility]); Primary hypertension Start: 03-15-2024 End: 03-15-2024 Telephone encounter Nancy Kim [facility] Start: 03-12-2024 ambulatory [facility] Start: 03-10-2024 Non-patient / Non-visit MD Jeremi Dan Work Phone: [facility] Work Phone: Start: 03-10-2024 MD Kait richmond Work Phone: [facility] Work Phone: Start: 03-09-2024 Non-patient / Non-visit MD Jeremi Dan Work Phone: [facility] Work Phone: Start: 03-09-2024 MD Kait richmond Work Phone: [facility] Work Phone: Start: 03-08-2024 End: 03-13-2024 Evaluation and management of inpatient MD Kait Dan Work Phone: [facility] Work Phone: Start: 03-08-2024 End: 03-13-2024 MD Kait Dan Work Phone: [facility] [place] [facility] Work Phone: Start: 03-08-2024 End: 03-10-2024 Emergency department patient visit [facility] Start: 03-05-2024 Non-patient / Non-visit MD Jeremi Dan Work Phone: [facility] Work Phone: Start: 03-05-2024 MD Kait richmond Work Phone: [facility] Work Phone: Start: 03-04-2024 End: 03-06-2024 Evaluation and management of inpatient MD Kait Dan Work Phone: [facility] [place] [facility] Work Phone: Start: 03-04-2024 End: 03-06-2024 MD Kait Dan Work Phone: [facility] [place] [facility] Work Phone: Start: 03-03-2024 Evaluation and management of inpatient MD Kait Dan Work Phone: [facility] Work Phone: Start: 03-03-2024 observation encounter MD Vikas Dan Work Phone: [facility] Work Phone: Start: 02-29-2024 End: 02-29-2024 Postop follow up visit related to original px Mike Montes MD Work Phone: [facility] Comment on above: PAD (peripheral iliana ry disease) ([facility]) (Primary Dx) Start: 02-28-2024 End: 02-28-2024 ambulatory Guero Ines Anel DO Work Phone: [facility] Comment on above: Encounter for orthop edic aftercare following surgical amputation (Primary Dx); Cigarette smoker; Diabetic polyneuropathy associated with type 2 diabetes mellitus ([facility]); Other abnormalities of gait and mobility; Muscle spasm Start: 02-23-2024 End: 02-28-2024 ambulatory Guero Tam DO Work Phone: [facility] Comment on above: Encounter for orthop edic aftercare following surgical amputation (Primary Dx); Other abnormalities of gait and mobility; BPH with obstruction/lower urinary tract symptoms; Diabetic polyneuropathy associated with type 2 diabetes mellitus ([facility]); Atherosclerosis of [place] coronary artery of [place] heart without angina pectoris; Heart failure, unspecified HF chronicity, unspecified heart failure type ([facility]); Primary hypertension; Peripheral arterial disease ([facility]); Chronic obstructive pulmonary disease, unspecified COPD type ([facility] Gastroesophageal reflux disease, unspecified whether esophagitis present; Muscle weakness (generalized) Start: 02-12-2024 End: 02-21-2024 Evaluation and management of inpatient MD Mike Montes Facility:[facility] Start: 02-12-2024 ambulatory Yeyo R SOLEDAD Ley ty:[facility] Start: 02-12-2024 ambulatory Mike Ley ty:[facility] Start: 02-12-2024 End: 02-21-2024 Evaluation and management of inpatient Mike Montes [facility] Start: 02-08-2024 Non-patient / Non-visit MD Jeremi Dan Work Phone: [facility] Work Phone: Start: 02-08-2024 MD Kait richmond Work Phone: [facility] Work Phone: Start: 02-01-2024 End: 02-01-2024 Clinisync Result Encounter Mike Montes MD Work Phone: [facility] External [facility] Unsolicited Start: 02-01-2024 End: 02-01-2024 Clinisync Result Encounter Mike Montes MD Work Phone: [facility] Unsolicited Start: 02-01-2024 Non-patient / Non-visit MD Jeremi Dan Work Phone: [facility] Work Phone: Start: 02-01-2024 MD Kait richmond Work Phone: [facility] Work Phone: Start: 01-24-2024 Non-patient / Non-visit MD Jeremi Dan Work Phone: [facility] [place] Work Phone: Start: 01-24-2024 MD Kait richmond Work Phone: [facility] [place] Work Phone: Start: 01-18-2024 End: 01-18-2024 Office outpatient visit 25 minutes Mike Montes MD Work Phone: [facility] Comment on above: 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 Comment on above: Shortness of breath Start: 01-08-2024 End: 01-08-2024 ambulatory MD Mike Montes Facility:[facility] Start: 01-03-2024 Non-patient / Non-visit MD Jeremi Dan Work Phone: [facility] [place] Work Phone: Start: 01-03-2024 MD Kait richmond Work Phone: [facility] [place] Work Phone: Start: 01-01-2024 End: 01-01-2024 ambulatory [facility] Start: 12-31-2023 Non-patient / Non-visit MD Jeremi Dan Work Phone: [facility] Work Phone: Start: 12-31-2023 MD Kait richmond Work Phone: [facility] Work Phone: Start: 12-30-2023 Non-patient / Non-visit MD Jeremi Dan Work Phone: [facility] Work Phone: Start: 12-30-2023 MD Kait richmond Work Phone: [facility] Work Phone: Start: 12-28-2023 Non-patient / Non-visit MD Jeremi Dan Work Phone: [facility] [place] Work Phone: Start: 12-28-2023 MD Kait richmond Work Phone: [facility] [place] Work Phone: Start: 12-25-2023 Non-patient / Non-visit MD Jeremi Dan Work Phone: [facility] [place] Work Phone: Start: 12-25-2023 MD Kait richmond Work Phone: [facility] [place] Work Phone: Start: 12-23-2023 Non-patient / Non-visit MD Jeremi Dan Work Phone: [facility] Work Phone: Start: 12-23-2023 MD Kait richmond Work Phone: [facility] Work Phone: Start: 12-22-2023 Non-patient / Non-visit MD Jeremi Dan Work Phone: [facility] Work Phone: Start: 12-22-2023 MD Kait richmond Work Phone: [facility] Work Phone: Start: 12-21-2023 Non-patient / Non-visit MD Jeremi Dan Work Phone: [facility] Work Phone: Start: 12-21-2023 MD Kait richmond Work Phone: [facility] Work Phone: Start: 12-21-2023 End: 12-21-2023 Office outpatient visit 25 minutes Mike Montes MD Work Phone: [facility] Comment on above: 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 (CMS-HCC) (Primary Dx) Start: 12-21-2023 End: 12-21-2023 [facility]ulatory [facility] Start: 12-15-2023 End: 12-15-2023 ambulatory DO Teresa Lynch Work Phone: [facility] Work Phone: Start: 12-15-2023 End: 12-15-2023 Departed Referred DO Teresa Lynch Work Phone: [facility] Start: 12-15-2023 End: 12-15-2023 MD Kait Dan Work Phone: [facility] Start: 12-10-2023 Non-patient / Non-visit MD Jeremi Dan Work Phone: [facility] Work Phone: Start: 12-10-2023 MD Kait richmond Work Phone: [facility] Work Phone: Start: 12-10-2023 Non-patient / Non-visit DO Phillip Lynch Work Phone: [facility] Work Phone: Start: 12-10-2023 MD Kait richmond Work Phone: [facility] Work Phone: Start: 12-09-2023 Non-patient / Non-visit DO Phillip Lynch Work Phone: [facility] Work Phone: Start: 12-09-2023 MD Kait richmond Work Phone: [facility] Work Phone: Start: 11-30-2023 End: 11-30-2023 Postop follow up visit related to original px Mike Montes MD Work Phone: [facility] Comment on above: 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 (CMS-HCC) (Primary Dx); 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 (CMS-HCC); Delayed surgical wound healing of foot amputation stump (CMS-HCC); Other abnormalities of gait and mobility Start: 11-26-2023 Non-patient / Non-visit DO Phillip Lynch Work Phone: [facility] Work Phone: Start: 11-24-2023 End: 11-24-2023 ambulatory Guero Ines Anel DO Work Phone: [facility] Comment on above: Status post partial amputation of right foot (CMS-HCC) (Primary Dx); Other abnormalities of gait and mobility; Leg edema; Primary hypertension; Hypotension due to drugs; 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); Diabetic polyneuropathy associated with type 2 diabetes mellitus ([facility]-H[facility]) Start: 11-23-2023 End: 11-23-2023 ambulatory [facility] Start: 11-15-2023 End: 11-15-2023 [facility] Start: 11-15-2023 Non-patient / Non-visit DO Phillip Lynch Work Phone: [facility] Work Phone: Start: 11-14-2023 End: 11-14-2023 Evaluation and management of inpatient [facility] Start: 11-10-2023 End: 11-10-2023 Telephone encounter Franny Yu MD Work Phone: [facility] Start: 11-07-2023 End: 11-14-2023 Evaluation and management of inpatient [facility] Start: 11-07-2023 End: 11-19-2023 ambulatory Guero Tam DO Work Phone: [facility] Comment on above: Peripheral [place] (Primary Dx); Delayed surgical wound healing of foot amputation stump [place] Other abnormalities of gait and mobility; Status post partial amputation of right foot ([facility]); Pressure ulcer of right ankle, stage 3 ([facility]); Type 2 diabetes mellitus with stage 4 chronic kidney disease, without long-term current use of insulin ([facility]) Start: 11-07-2023 End: 11-14-2023 Evaluation and management of inpatient [facility] Start: 11-03-2023 End: 11-10-2023 ambulatory Guero Mcng DO Work Phone: [facility] Comment on above: Status post partial amputation of right foot [place] (Primary Dx); Pressure ulcer of right ankle, stage 3 ([facility]); Other abnormalities of gait and mobility; Delayed surgical wound healing of foot amputation stump ([facility]) Start: 10-25-2023 End: 10-30-2023 ambulatory Guero Tam DO Work Phone: [facility] Comment on above: Status post partial amputation of right foot ([facility]-HCC) (Primary Dx); Osteomyelitis of right foot, unspecified type ([facility]-H[facility]); Muscle weakness (generalized); Other abnormalities of gait and mobility; Chronic obstructive pulmonary disease, unspecified COPD type ([facility]); Peripheral arterial disease ([facility]) Start: 10-24-2023 End: 10-24-2023 ambulatory [facility] Start: 10-24-2023 End: 10-24-2023 Encounter for preprocedural cardiovascular examination [facility] Start: 10-24-2023 End: 10-24-2023 Office outpatient visit 25 minutes Vanessa Inman MD Work Phone: [facility] Comment on above: History of PTCA; Hyperlipidemia, unspecified hyperlipidemia type; Encounter for pre-operative cardiovascular clearance; Former smoker Start: 10-24-2023 End: 10-24-2023 Patient encounter status Vanessa Inman MD Work Phone: [facility] Work Phone: Start: 10-23-2023 End: 10-23-2023 ambulatory MD Mike Montes Facility:[facility] Start: 10-23-2023 End: 10-23-2023 Patient encounter procedure Mike Montes [facility] Start: 10-19-2023 End: 10-19-2023 ambulatory MD Mike Montes Facility:[facility] Start: 10-19-2023 End: 10-19-2023 Patient encounter procedure Mike Montes [facility] Start: 10-18-2023 End: 10-18-2023 Telephone encounter Cameron Mg LPN [facility] Start: 10-18-2023 End: 10-18-2023 Office outpatient new 45 minutes Mike Montes MD Work Phone: [facility] Comment on above: 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 (CMS-HCC) (Primary Dx); Poor circulation; Heavy tobacco smoker >10 cigarettes per day Start: 10-18-2023 End: 10-18-2023 ambulatory MIKE Jaime Nohemi hubbard Start: 10-17-2023 End: 10-22-2023 ambulatory Guero Ines Mcbiju DO Work Phone: [facility] Comment on above: Status post partial amputation of right foot (CMS-HCC) (Primary Dx); 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); Type 2 diabetes mellitus with stage 4 chronic kidney disease, without long-term current use of insulin (CMS-HCC) Start: 10-10-2023 End: 10-10-2023 ambulatory Guero Ines Mcbiju DO Work Phone: [facility] Comment on above: Diarrhea, unspecifie d type (Primary Dx); Other acute osteomyelitis of right foot (CMS-HCC); Status post partial amputation of right foot (CMS-HCC); Chronic obstructive pulmonary disease, unspecified COPD type (CMS-HCC); Abscess of right foot; Type 2 diabetes mellitus with stage 4 chronic kidney disease, without long-term current use of insulin (CMS-HCC) Start: 10-06-2023 End: 10-07-2023 ambulatory Guero Ines Mckayleeasim DO Work Phone: [facility] Comment on above: Abscess of right jono t (Primary Dx); Status post partial amputation of right foot (CMS-HCC); Type 2 diabetes mellitus with stage 4 chronic kidney disease, without long-term current use of insulin (CMS-HCC); Atherosclerosis of [place] coronary artery of [place] heart without angina pectoris; Bacterial sepsis (CMS-HCC); Other acute osteomyelitis of right foot (CMS-HCC); Chronic obstructive pulmonary disease, unspecified COPD type (CMS-HCC); Cigarette smoker; BPH with obstruction/lower urinary tract symptoms; Gastroesophageal reflux disease, unspecified whether esophagitis present; Restless leg syndrome; Hyperlipidemia, unspecified hyperlipidemia type; Carpal tunnel syndrome, unspecified laterality; Heart failure, unspecified HF chronicity, unspecified heart failure type ([facility]) Start: 10-06-2023 Non-patient / Non-visit DO Phillip gorge Fraustos Work Phone: [facility] Work Phone: Start: 10-05-2023 End: 10-05-2023 ambulatory DO Teresa Fraustos Work Phone: [facility] Work Phone: Start: 10-05-2023 End: 10-05-2023 Departed Referred DO Teresagorge Fraustos Work Phone: [facility] Start: 10-05-2023 Non-patient / Non-visit DO Phillip gorge Fraustos Work Phone: [facility] Work Phone: Start: 10-04-2023 Non-patient / Non-visit DO Phillip gorge Fraustos Work Phone: [facility] Work Phone: Start: 10-03-2023 Non-patient / Non-visit DO Phillip gorge Fraustos Work Phone: [facility] Work Phone: Start: 10-02-2023 End: 10-02-2023 ambulatory DO Teresa Fraustos Work Phone: [facility] Work Phone: Start: 10-02-2023 End: 10-02-2023 Departed Referred DO Teresagorge Fraustos Work Phone: [facility] Start: 10-02-2023 Non-patient / Non-visit DO Phillip an Jetts Work Phone: [facility] Work Phone: Start: 10-01-2023 Non-patient / Non-visit DO Phillip an Kuns Work Phone: [facility] Work Phone: Start: 09-30-2023 Non-patient / Non-visit DO Phillip an Kuns Work Phone: [facility] Work Phone: Start: 09-27-2023 Non-patient / Non-visit DO Phillip an Kuns Work Phone: [facility] Work Phone: Start: 09-21-2023 End: 09-21-2023 ambulatory DO Teresa Jetts Work Phone: [facility] Work Phone: Start: 09-21-2023 End: 09-21-2023 Departed Referred DO Teresa Jetts Work Phone: [facility] Start: 09-21-2023 Non-patient / Non-visit DO Phillip an Kuns Work Phone: [facility] Work Phone: Start: 09-18-2023 Non-patient / Non-visit DO Phillip an Kuns Work Phone: [facility] Work Phone: Start: 09-08-2023 End: 09-08-2023 ambulatory Yeyo ROWE Facility:[facility] Start: 09-08-2023 End: 09-08-2023 Patient encounter procedure Yeyo ROWE [facility] Start: 08-10-2023 Non-patient / Non-visit DO Phillip an Kuns Work Phone: [facility] Work Phone: Start: 08-08-2023 Non-patient / Non-visit DO Phillip an Kuns Work Phone: [facility] Work Phone: Start: 08-07-2023 Non-patient / Non-visit DO Phillip an Kuns Work Phone: [facility] Work Phone: Start: 08-06-2023 Non-patient / Non-visit DO Phillip an Kuns Work Phone: [facility] Work Phone: Start: 08-05-2023 Non-patient / Non-visit DO Phillip an Kuns Work Phone: [facility] Work Phone: Start: 08-04-2023 Non-patient / Non-visit DO Phillip an Kuns Work Phone: [facility] Work Phone: Start: 08-03-2023 Non-patient / Non-visit DO Phillip an Kuns Work Phone: [facility] Work Phone: Start: 07-31-2023 Registered Recurring DO Teresagorge Fraustos Work Phone: [facility] Work Phone: Start: 07-31-2023 ambulatory Count Includes [facility] Facility:[facility] Start: 07-26-2023 Non-patient / Non-visit DO Phillip an Kuns Work Phone: [facility] Work Phone: Start: 07-12-2023 End: 07-12-2023 Emergency department patient visit DO Teresa Jetts Work Phone: [facility] Work Phone: Start: 07-07-2023 End: 07-07-2023 ambulatory Teresa Fraustocamille Other [employer] Other Start: 07-07-2023 Telephone [facility] Start: 07-03-2023 End: 07-03-2023 ambulatory Yeyo ROWE Facility:[facility] Start: 06-26-2023 End: 06-26-2023 ambulatory Teresa Fraustocamille Other [employer] Other Start: 06-26-2023 Telephone encounter Teresa Lynch [facility] Start: 06-02-2023 End: 06-02-2023 ambulatory Yeyo ROWE Facility:[facility] Start: 06-02-2023 End: 06-02-2023 Patient encounter procedure Yeyo ROWE [facility] Start: 05-16-2023 End: 05-16-2023 ambulatory Teresa Lynch Other [employer] Other Start: 05-16-2023 Telephone encounter Teresa Lynch [facility] Start: 05-03-2023 End: 05-03-2023 ambulatory Yeyo ROWE Facility:[facility] Start: 05-03-2023 End: 05-03-2023 Patient encounter procedure Yeyo ROWE [facility] Start: 04-28-2023 End: 04-28-2023 ambulatory Teresa Lynch Other [employer] Other Start: 04-28-2023 Telephone encounter Teresa Lynch [facility] Start: 04-18-2023 End: 04-18-2023 ambulatory Yeyo ROWE Facility:[facility] Start: 04-18-2023 End: 04-18-2023 Patient encounter procedure Yeyo ROWE [facility] Start: 04-17-2023 ambulatory Yeyo ROWE Facili ty:[facility] Start: 04-13-2023 End: 04-13-2023 ambulatory Yeyo ROWE Facility:CD:[id number] Start: 04-11-2023 End: 04-11-2023 ambulatory Teresa Lycnh Other [employer] Other Start: 04-11-2023 Telephone encounter Teresa Lynch [facility] [place] Start: 04-06-2023 End: 04-06-2023 ambulatory Teresa Lynch Other [employer] Other Start: 04-06-2023 Encounter for other preprocedural examination Teresa Lynch [facility] [place] Start: 04-06-2023 Office outpatient vi sit 25 minutes Teresa Lynch [facility] [place] Start: 03-28-2023 End: 03-28-2023 ambulatory Teresa Lynch Other [employer] Other Start: 03-28-2023 Telephone encounter Teresa Lynch [facility] [place] Start: 03-20-2023 ambulatory Yeyo ROWE Facili ty:[facility] Start: 03-15-2023 End: 03-15-2023 ambulatory Yeyo ROWE [facility] [employer] Other Start: 03-15-2023 Office outpatient vi sit 25 minutes Teresa Lynch [facility] [place] Start: 03-10-2023 End: 03-10-2023 ambulatory Teresa Lynch Other [employer] Other Start: 03-10-2023 Telephone encounter Teresa Lynch [facility] [place] Start: 02-15-2023 Office outpatient vi sit 15 minutes Teresa Lynch Work Phone: [facility] 250 DO Work Phone: Start: 02-15-2023 ambulatory Dolores Pickard Facility:[id number] Start: 02-14-2023 End: 02-14-2023 Patient encounter procedure Yeyo ROWE [facility] Start: 02-08-2023 End: 02-08-2023 Patient encounter procedure Yeyo ROWE [facility] Start: 01-30-2023 End: 01-30-2023 Patient encounter procedure Yeyo ROWE [facility] Start: 01-25-[address] Teresa Lynch Facility:[id number] Start: 01-17-2023 End: 01-17-2023 ambulatory Teresa Lynch Other [employer] Other Start: 01-17-2023 Telephone encounter Teresa Lynch [facility] Start: 01-11-2023 Office outpatient vi sit 25 minutes [facility] Work Phone: Start: 01-11-2023 ambulatory Dolores Pickard Facility:[id number] Start: 12-28-2022 End: 12-28-2022 Patient encounter procedure [facility] ROWE [facility] Start: 12-01-2022 End: 12-01-2022 ambulatory Teresa Lynch Other [employer] Other Start: 12-01-2022 Office outpatient vi sit 25 minutes Teresa Lynch [facility] [place] Start: 11-23-2022 End: 11-23-2022 Patient encounter procedure Yeyo Blum [facility] Start: 10-07-2022 End: 10-07-2022 ambulatory Teresa Lynch Other [employer] Other Start: 10-07-2022 Telephone encounter Teresa Lynch [facility] [place] Start: 09-27-2022 End: 09-27-2022 ambulatory DO Teresa Lynch Work Phone: [facility] Work Phone: Start: 09-27-2022 End: 09-27-2022 Patient encounter procedure DO Teresa Lynch Work Phone: [facility] [place] Work Phone: Start: 09-21-2022 End: 09-21-2022 ambulatory Teresa Lynch Other [employer] Other Start: 09-21-2022 Telephone encounter Teresa Lynch [facility] [place] Start: 09-14-2022 End: 09-14-2022 ambulatory Teresa Lynch Other [employer] Other Start: 09-14-2022 Telephone encounter Teresa Lynch [facility] [place] Start: 09-02-2022 End: 09-02-2022 Patient encounter procedure DO Teresa Lynch Work Phone: [facility] [place] Work Phone: Start: 08-25-2022 End: 08-25-2022 ambulatory Tondra Mapus Other [employer] Other Start: 08-25-2022 Telephone encounter Tondra Mapus [facility] Start: 08-22-2022 End: 08-22-2022 ambulatory Teresa Fraustocamille Other [employer] Other Start: 08-22-2022 Telephone encounter Teresa Jettcamille [facility] [place] Start: 08-05-2022 End: 08-05-2022 ambulatory Teresa Fraustocamille Other [employer] Other Start: 08-05-2022 Telephone encounter Teresa Lynch [facility] [place] Start: 08-04-2022 End: 08-04-2022 ambulatory Teresa Fraustocamille Other [employer] Other Start: 08-04-2022 Telephone encounter Teresa Fraustocamille [facility] [place] Start: 07-28-2022 End: 07-28-2022 ambulatory Teresa Fraustocamille Other [employer] Other Start: 07-28-2022 Telephone encounter Teresa Jettcamille [facility] Start: 07-25-2022 End: 07-25-2022 ambulatory Teresa Fraustocamille Other [employer] Other Start: 07-25-2022 Nursing evaluation o f patient and report Teresa Lynch [facility] [place] Start: 07-19-2022 End: 07-19-2022 ambulatory Teresa Fraustocamille Other [employer] Other Start: 07-19-2022 Telephone encounter Teresagorge Lynch [facility] [place] Start: 07-15-2022 End: 07-15-2022 ambulatory Teresa Fraustocamille Other [employer] Other Start: 07-15-2022 Telephone encounter Teresa Lynch [facility] [place] Start: 07-13-2022 End: 07-13-2022 ambulatory Teresa Lynch Other [employer] Other Start: 07-13-2022 Nursing evaluation o f patient and report Teresa Lynch [facility] [place] Start: 07-12-[address] [facility]: Start: 07-05-2022 End: 07-05-2022 ambulatory Teresa Lynch Other [employer] Other Start: 07-05-2022 Telephone encounter Teresa Lynch [facility] [place] Start: 07-05-2022 Rx Renewal Teresa Lynch Work Phone: [facility] 250 DO Work Phone: Start: 07-04-2022 End: 07-04-2022 ambulatory Teresa Lynch Other [employer] Other Start: 07-04-2022 Office outpatient vi sit 25 minutes Teresa Lynch [facility] [place] Start: 06-30-2022 End: 06-30-2022 ambulatory Teresa Lynch Other [employer] Other Start: 06-30-2022 Telephone encounter Teresa Lynch [facility] [place] Start: 05-25-2022 End: 05-25-2022 ambulatory Teresa Lynch Other [employer] Other Start: 05-25-2022 Telephone encounter Teresa Lynch [facility] [place] Start: 04-25-2022 End: 04-25-2022 ambulatory Teresa Lynch Other [employer] Other Start: 04-25-2022 Telephone encounter Teresa Lynch [facility] [place] Start: 04-19-2022 End: 04-19-2022 ambulatory Teresa Lynch Other [employer] Other Start: 04-19-2022 Telephone encounter Teresagorge Fraustocamille [facility] [place] Start: 03-22-2022 End: 03-22-2022 ambulatory Teresagorge Lynch Other [employer] Other Start: 03-22-2022 Telephone encounter Teresagorge Lynch [facility] [place] Start: 03-01-2022 End: 03-01-2022 ambulatory Teresa Fraustocamille Other [employer] Other Start: 03-01-2022 Telephone encounter Teresagorge Lynch [facility] [place] Start: 02-18-2022 End: 02-18-2022 ambulatory Teresagorge Lynch Other [employer] Other Start: 02-18-2022 Telephone encounter Teresagorge Lynch [facility] [place] Start: 02-15-2022 End: 02-15-2022 ambulatory Verona Whaley Other [employer] Other Start: 02-15-2022 Office outpatient vi sit 25 minutes Teresa Lynch [facility] [place] Start: 02-15-2022 Telephone encounter Verona Judd [facility] Start: 01-21-2022 End: 01-21-2022 ambulatory Teresa Lynch Other [employer] Other Start: 01-21-2022 Telephone encounter Teresagorge Lynch [facility] [place] Start: 01-19-2022 End: 01-19-2022 ambulatory Teresa Rory Other [employer] Other Start: 01-19-2022 Telephone encounter Teresagorge Lynch [facility] [place] Start: 01-13-2022 End: 01-13-2022 ambulatory Teresa Lynch Other [employer] Other Start: 01-13-2022 Telephone encounter Teresa Lynch [facility] [place] Start: 12-23-2021 End: 12-23-2021 ambulatory Teresa Fraustocamille Other [employer] Other Start: 12-23-2021 Telephone encounter Teresagorge Lynch [facility] [place] Start: 11-24-2021 End: 11-24-2021 ambulatory Teresa Lynch Other [employer] Other Start: 11-24-2021 Telephone encounter Teresa Fraustocamille [facility] [place] Start: 11-03-2021 Rx Renewal Teresa Lynch Work Phone: [facility] [employer] 250 DO Work Phone: Start: 10-26-2021 Office outpatient vi sit 25 minutes Teresa Lynch Work Phone: [facility] [employer] 250 DO Work Phone: Start: 10-25-2021 End: 10-25-2021 ambulatory Teresa Lynch Other [employer] Other Start: 10-25-2021 Telephone encounter Teresa Lynch [facility] [place] Start: 10-19-2021 End: 10-19-2021 ambulatory Azjuan Kinseys Other [employer] Other Start: 10-19-2021 Office outpatient vi sit 25 minutes Aziz Bakhous [facility] Start: 10-18-2021 End: 10-18-2021 ambulatory Aziz Bakhous Other [employer] Other Start: 10-18-2021 Telephone encounter Azjuan Tonyhous [facility] Start: 10-12-2021 End: 10-13-2021 ambulatory DUARTE HENRY . Facility: Start: 10-08-2021 End: 10-08-2021 ambulatory Teresa Lynch Other [employer] Other Start: 10-08-2021 Telephone encounter Teresa Lynch [facility] [place] Start: 09-22-2021 End: 09-22-2021 ambulatory Teresa Fraustocamille Other [employer] Other Start: 09-22-2021 Telephone encounter Teresa Lynch [facility] Start: 09-21-2021 End: 09-21-2021 ambulatory Teresa Lynch Other [employer] Other Start: 09-21-2021 Telephone encounter Teresa Lynch [facility] Start: 08-09-2021 End: 08-09-2021 ambulatory Teresa Lynch Other [employer] Other Start: 08-09-2021 Telephone encounter Teresa Lynch [facility] Start: 08-02-2021 End: 08-02-2021 ambulatory Teresa Lynch Other [employer] Other Start: 08-02-2021 Telephone encounter Teresa Lynch [facility] Start: 07-27-2021 End: 07-27-2021 ambulatory Teresa Lynch Other [facility] Other Start: 07-27-2021 Office outpatient vi sit 25 minutes Teresa Lynch [facility] Start: 06-23-2021 End: 06-23-2021 ambulatory Teresa Lynch Other [employer] Other Start: 06-23-2021 Telephone encounter Teresa Lynch [facility] Start: 06-22-2021 Rx Renewal Teresa Lynch Work Phone: [facility] 250 DO Work Phone: Start: 05-03-2021 End: 05-03-2021 ambulatory Teresa Lynch Other [facility] Other Start: 05-03-2021 Telephone encounter Teresa Lynch [facility] [place] Procedures Date Procedure Procedure Detail Performing Clinician Start: 04-23-2024 Esophagogastroduodenoscopy Kait hopkins MD Work Phone: Start: 03-11-2024 MRI of abdomen with contrast MD Kait castillo Work Phone: Start: 03-11-2024 Ultrasonography of liver MD Kait ramírez Work Phone: Start: 03-09-2024 Plain X-ray of left elbow MD Kait richmond Work Phone: Start: 03-09-2024 Plain X-ray of left shoulder MD Kait castillo Work Phone: Start: 03-09-2024 Ultrasonography of bilateral kidneys MD Kait Dan Work Phone: Start: 03-08-2024 MRI of head MD Kait Dan Work Phone: Start: 03-08-2024 Plain chest X-ray MD Kait Dan Work Phone: Start: 03-08-2024 CT angiography of head MD Kait Dan Work Phone: Start: 03-08-2024 CT angiography of neck vessels MD Kait Dan Work Phone: Start: 03-08-2024 CT of head without contrast MD Kait gomez Work Phone: Start: 03-08-2024 Blood culture for bacteria, including anaerobic screen MD Kait Dan Work Phone: Start: 03-08-2024 Respiratory Panel (PCR) MD Kait hopkins Work Phone: Start: 03-08-2024 Respiratory Panel (PCR) Kait Hooker Work Phone: Start: 03-08-2024 MD Kait Dan Work Phone: Start: 03-04-2024 Magnetic resonance angiography of head without contrast MD Kait Dan Work Phone: Start: 03-04-2024 Antibody screen Paula Soto Comment on above: Order Comment: Number of units to transf use now? 1 Result Comment: PERF ORMED BY: [facility] [address] [place] [address] PATHOLOGIST SERVICE DELIVERY ANALYST CLIFFORD LOBATO M.D. Start: 03-04-2024 X-ray of right knee MD Kait Dan Work Phone: Start: 03-04-2024 Doppler ultrasonography of bilateral carotid arteries MD Kait Dan Work Phone: Start: 03-03-2024 CT of head without contrast MD Kait gomez Work Phone: Start: 03-03-2024 Computed tomography of abdomen and pelvis with contrast MD Kait Dan Work Phone: Start: 03-03-2024 SARS-CoV-2, Influenza & RSV (PCR) MD Jeremi Dan Work Phone: Start: 03-03-2024 Viral nucleic acid assay Kait Dan MD Work Phone: Start: 03-03-2024 Plain chest X-ray MD Kait Dan Work Phone: Start: 02-12-2024 Amputation of leg through tibia and fibula Mike Montes Start: 02-01-2024 ALL CBC WITH AUTO DIFF Mike Montes MD Work Phone: Start: 01-08-2024 Amputation through metatarsal bones Mike Montes Start: 12-21-2023 Blood Culture 1 MD Kait Dan Work Phone: Start: 12-21-2023 Blood Culture 2 MD Kait Dan Work Phone: Start: 12-21-2023 MD Kait Dan Work Phone: Start: 11-26-2023 Blood Culture 1 DO Teresa Lynch Work Phone: Start: 11-26-2023 Blood Culture 2 DO Teresa Lynch Work Phone: Start: 11-15-2023 Blood Culture 1 DO Teresa Lynch Work Phone: Start: 11-15-2023 Blood Culture 2 DO Teresa Lynch Work Phone: Start: 11-07-2023 Adult depression screening assessment Franny Yu MD Work Phone: Start: 10-24-2023 Ecg routine ecg w/least 12 lds w/i&r Vanessa Inman MD Work Phone: Start: 10-06-2023 End: 02-28-2024 History of amputation of foot Status post partial amputation of right foot ([facility]) Guero Mckayleeasim DO Work Phone: Start: 10-02-2023 Acid Fast Smear DO Teresa Lynch Work Phone: Start: 10-02-2023 AFB Specimen Processing DO Teresa Lynch Work Phone: Start: 10-02-2023 Microscopic observation [Identifier] in Unspecified specimen by Gram stain DO Teresa Lynch Work Phone: Start: 10-02-2023 Tissue Culture DO Teresa Lynch Work Phone: Start: 09-30-2023 Blood Culture 1 DO Teresa Lynch Work Phone: Start: 09-30-2023 Blood Culture 2 DO Teresa Lynch Work Phone: Start: 09-30-2023 Wound Culture DO Teresa Lynch Work Phone: Start: 09-21-2023 Microscopic observation [Identifier] in Unspecified specimen by Gram stain DO Teresa Lynch Work Phone: Start: 08-10-2023 Acid Fast Culture DO Teresa Lynch Work Phone: Start: 08-10-2023 Acid Fast Smear DO Teresa Lynch Work Phone: Start: 08-10-2023 AFB Specimen Processing DO Teresa Lynch Work Phone: Start: 08-10-2023 Microscopic observation [Identifier] in Unspecified specimen by Gram stain DO Teresa Lynch Work Phone: Start: 08-10-2023 Tissue Culture DO Teresa Lynch Work Phone: Start: 08-05-2023 Microscopic observation [Identifier] in Unspecified specimen by Gram stain DO Teresa Lynch Work Phone: Start: 08-04-2023 Blood Culture 1 DO Teresa Lynch Work Phone: Start: 08-04-2023 Blood Culture 2 DO Teresa Lynch Work Phone: Start: 08-04-2023 Microscopic observation [Identifier] in Unspecified specimen by Gram stain DO Teresa Lynch Work Phone: Start: 08-04-2023 Wound Culture DO Teresa Lynch Work Phone: Start: 08-03-2023 Blood Culture 1 DO Teresa Lynch Work Phone: Start: 08-03-2023 Blood Culture 2 DO Teresa Lynch Work Phone: Start: 07-12-2023 Duplex scan of lower limb veins DO Teresa Lynch Work Phone: Start: 07-12-2023 Duplex scan veins of upper limb DO Teresa Lynch Work Phone: Start: 07-12-2023 Plain chest X-ray DO Teresa Lynch Work Phone: Start: 04-13-2023 Transurethral prostatectomy Yeyo BARCLAY Start: 03-27-2023 History of percutaneous transluminal coronary angioplasty History of PTCA Vanessa Inman MD Work Phone: Start: 02-14-2023 Transurethral cystoscopy Yeyo ROWE Start: 09-02-2022 MRI of head DO Teresa Rory Work Phone: Start: 06-05-2006 Total colonoscopy Teresa Lynch Work Phone: Angiography Mike Montes Comment on above: RLE Angiogram with drug coated balloonin g Appendectomy Teresa Lynch Work Phone: Appendectomy Yeyo ROWE Bilateral Carpal Tunnel Surgery Yeyoneel ROWE Bilateral Eye Surgery 1 Patr leegloria ROWE Comment on above: bilateral cataracts with iol implants Bilateral Eye Surgery 2 Moha med Simon Comment on above: bilateral cataracts with iol implants Cardiac catheterization Jose Angel Lynch Work Phone: cardiac stents Yeyo Obrien Cataract extraction and insertion of intraocular lens Yeyo ROWE Cataract surgery Teresa Mari Frausto camille Work Phone: Colonoscopy Yeyo ROWE Decompression of median nerve Teresa Lynch Work Phone: History of amputation of foot 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 ([facility]) Guerojunito Mckayleeasim DO Work Phone: History of amputation of foot 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 ([facility]) Guero Chacon Jesusitalong DO Work Phone: History of amputation of foot 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 ([facility]) Guero Chacon Stevenng DO Work Phone: History of amputation of foot 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 ([facility]) Guero Chacon Jesusitakayleeng DO Work Phone: History of amputation of foot 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 (CMS-HCC) Guero Tam DO Work Phone: History of amputation of foot 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 (CMS-HCC) Guero Tam DO Work Phone: History of amputation of foot 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 (CMS-HCC) Guero Tam DO Work Phone: History of percutane ous transluminal coronary angioplasty History of PTCA Teresa Lynch Work Phone: History of percutane ous transluminal coronary angioplasty History of PTCA Vanessa Inman MD Work Phone: Procedure on back Teresa ramirez Work Phone: Comment on above: nerve ablation; Procedure on back Yeyo DOSHI Scrotum and testicle operation Teresa Lynch Work Phone: Plan of Treatment Date Care Activity Detail Author Start: 08-05-2033 DTaP/Tdap/Td Vaccines (2 - Td or Tdap) DTaP/Tdap/Td Vaccines (2 - Td or Tdap) [facility] Start: 04-26-2025 Tobacco Counseling Tobacco Counseling [facility] Start: 03-15-2025 Adult BMI Screening Adult BMI Screening [facility] Start: 02-28-2025 Adult BMI Screening Adult BMI Screening [facility] Start: 02-28-2025 Tobacco Screening Tobacco Screening [facility] Start: 02-27-2025 Adult BMI Screening Adult BMI Screening [facility] Start: 01-17-2025 Adult BMI Screening Adult BMI Screening [facility] Start: 01-17-2025 Tobacco Screening Tobacco Screening [facility] Start: 12-20-2024 Adult BMI Screening Adult BMI Screening [facility] Start: 12-20-2024 Tobacco Screening Tobacco Screening [facility] Start: 11-29-2024 Adult BMI Screening Adult BMI Screening [facility] Start: 11-29-2024 Tobacco Screening Tobacco Screening [facility] Start: 11-13-2024 Adult BMI Screening Adult BMI Screening [facility] Start: 11-09-2024 Adult BMI Screening Adult BMI Screening [facility] Start: 11-09-2024 Tobacco Screening Tobacco Screening [facility] Start: 11-07-2024 Tobacco Screening Tobacco Screening [facility] Start: 11-06-2024 Depression Screening Depression Screening [facility] Start: 10-24-2024 Adult BMI Screening Adult BMI Screening [facility] Start: 10-21-2024 End: 10-21-2024 Patient encounter procedure 10/21/2024 8:00 AM EDT Office Visit [facility] [address] [place] [address] Dolores Pickard, CORPORATE WELLNESS COORDINATOR-SENIOR FACILITIES MANAGER [address] [place] [address] [facility] Start: 10-17-2024 Adult BMI Screening Adult BMI Screening [facility] Start: 10-17-2024 Tobacco Screening Tobacco Screening [facility] Start: 04-23-[address] [facility] Start: 03-13-[address] [facility] Start: 03-11-2024 End: 03-11-2024 Patient encounter procedure 03/11/2024 8:40 AM EDT Office Visit [facility] [address] [place] [address] Bernard De La Cruz MD [address] [place] [address] [facility] Start: 03-10-2024 Referral to fund controller [facility] Start: 03-09-2024 Comprehensive metabolic 2000 panel - Serum or Plasma [facility] Start: 03-09-2024 End: 03-09-[address] [facility] Start: 03-08-2024 Referral to psychiatrist [facility] Start: 03-08-2024 Referral to neurologist [facility] Start: 03-08-2024 End: 03-08-[address] [facility] Start: 03-08-2024 Hospital admission [facility] Start: 03-08-2024 Plain chest X-ray [facility] Start: 03-08-2024 Telemedicine consultation with patient [facility] Start: 03-08-2024 Blood culture for bacteria, including anaerobic screen [facility] Start: 03-06-[address] [facility] Start: 03-05-2024 Referral to fund controller [facility] Start: 03-04-2024 Referral to fund controller [facility] Start: 03-03-2024 Referral to neurologist [facility] Start: 03-03-[address] [facility] Start: 03-03-2024 Hospital admission [facility] Start: 02-29-2024 End: 02-29-2024 Patient encounter procedure 02/29/2024 9:30 AM EDT Office Visit [facility] [address] [place] [phone] Mike Montes MD [address], [facility] [address] [place] [address] [facility] Start: 02-04-2024 COVID-19 Vaccine ( season) COVID-19 Vaccine ( season) [facility] Start: 02-04-2024 Influenza vaccination [facility] Start: 12-21-2023 End: 12-21-2023 Patient encounter procedure 12/21/2023 8:40 AM EDT Office Visit [facility] [address] [place] [address] Mike Montes MD [address] [place] [address] [facility] Start: 11-30-2023 End: 11-30-2023 Patient encounter procedure 11/30/2023 8:50 AM EDT Office Visit [facility] [address] [place] [address] Mike Montes MD [address], [address] [place] [address] [facility] Start: 11-23-2023 End: 11-23-2023 Patient encounter procedure [facility] Start: 11-23-2023 End: 11-23-2023 Patient encounter procedure 11/23/2023 9:40 AM EDT Office Visit [facility] [address] [place] [address] Mike Montes MD [address], [address] [place] [address] [facility] Start: 11-15-2023 FUV, Provider: Vanessa Inman, Status: Pen, Time: 2:40 PM FUV, Provider: Vanessa Inman, Status: Pen, Time: 2:40 PM [facility] 250 DO Work Phone: Start: 11-07-2023 End: 11-07-2023 Admission to same day surgery center 11/07/2023 3:00 PM EDT - 11/07/2023 4:00 PM EDT Surgery [facility] Cardiac Cath [address] [place] [address] Mike Montes MD [address], [facility] [address] [place] [address] Vascular Invasive Right lower extremity angiogram with intervention [facility] Cardiac [facility] Comment on above: Vascular Invasive Right lower extremity angiogram with intervention Start: 11-07-2023 Subsequent hospital visit by physician 11/07/2023 3:00 PM EDT Hospital Encounter [facility] Cardiac Cath [address] [place] [address] Mike Montes MD [address], [address] [place] [address] 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 ([facility]) [facility] Comment on above: Critical limb ischemia of right lower ex tremity with gangrene ([facility]) Start: 10-18-2023 End: 10-17-2024 CTA Abdominal Aorta and Bilateral Runoff Vessels W contrast IV [facility] Comment on above: Expected: 10/18/2023, Expires: Start: 10-18-2023 End: 10-17-2024 US.doppler Extremity arteries - bilateral for physiologic artery study [facility] Work Phone: Comment on above: Expected: 10/18/2023, Expires: Start: 10-02-2023 Acid Fast Culture Acid Fast Culture [facility] Start: 09-30-2023 Blood Culture 1 Blood Culture [address] [facility] Start: 09-30-2023 Blood Culture 2 Blood Culture [address] [facility] Start: 09-30-2023 Wound Culture Wound Culture [facility] Start: 09-21-2023 Abscess Culture Abscess Culture [facility] Start: 08-10-2023 Acid Fast Culture Acid Fast Culture [facility] Start: 08-05-2023 Wound Culture Wound Culture [facility] Start: 07-12-2023 Duplex scan of lower limb veins US venous duplex LE BI [facility] Start: 07-12-2023 US Lower extremity vein - bilateral [facility] Start: 07-12-2023 Duplex scan veins of upper limb US venous duplex UE LT [facility] Start: 07-12-2023 US Upper extremity vein - left [facility] Start: 02-15-2023 FUV, Provider: Dolores Velazquez, Status: Pen, Time: 10:00 AM FUV, Provider: Dolores Velazquez, Status: Pen, Time: 10:00 AM -[facility] 600 DO Work Phone: Start: 02-03-2023 COVID-19 Vaccine () COVID-19 Vaccine () [facility] Start: 01-25-2023 STRESS NUC, Provider: [place] [facility] NUCLEAR 01,[id number], Status: Pen, Time: 8:30 AM STRESS NUC, Provider: [place] [facility] NUCLEAR 01,[id number], Status: Pen, Time: 8:30 AM [facility] 600 DO Work Phone: Start: 07-12-2022 FUV, Provider: Vanessa Inman, Status: Pen, Time: 9:20 AM FUV, Provider: Vanessa Inman, Status: Pen, Time: 9:20 AM [facility] 250 DO Work Phone: Start: 10-26-2021 FUV, Provider: Vanessa Inman, Status: Pen, Time: 9:30 AM FUV, Provider: Vanessa Inman, Status: Pen, Time: 9:30 AM -[facility] 250 DO Work Phone: Start: 03-05-2019 Pneumococcal Vaccine: Pediatrics (0 to 5 Years) and At-Risk Patients (6 to 64 Years) (2 of 2 - PCV) Pneumococcal Vaccine: Pediatrics (0 to 5 Years) and At-Risk Patients (6 to 64 Years) (2 of 2 - PCV) [facility] Start: 2015 Administration of varicella zoster vaccine Zoster (Shingles) Vaccine (1 of 2) [facility] Start: 2015 Zoster Vaccines (1 of 2) Zoster Vaccines (1 of 2) [facility] Start: 1987 DTaP/Tdap/Td Vaccines (1 - Tdap) DTaP/Tdap/Td Vaccines (1 - Tdap) [facility] Start: 1984 DTaP,Tdap and Td Vaccines (1 - Tdap) DTaP,Tdap and Td Vaccines (1 - Tdap) [facility] Start: 1984 Hepatitis B Vaccines (1 of 3 - 19+ 3-dose series) Hepatitis B Vaccines (1 of 3 - 19+ 3-dose series) [facility] Start: 1984 Urine screening for protein Diabetes: Urine Protein Screening [facility] Start: 1983 Adult BMI Follow Up Plan Adult BMI Follow Up Plan [facility] Start: 1983 Adult BMI Screening Adult BMI Screening [facility] Start: 1983 Diabetic foot examination Diabetic Foot Exam [facility] Start: 1983 Hepatitis C screening Hepatitis C Screening [facility] Start: 1977 Depression Screening Depression Screening [facility] Start: 1977 Tobacco Screening Tobacco Screening [facility] Start: 1975 Diabetic foot examination Diabetes: Foot Exam [facility] Start: 1975 Glaucoma screening Diabetes: Retinopathy Screening [facility] Start: 1966 MMR Vaccines (1 of 1 - Standard series) MMR Vaccines (1 of 1 - Standard series) [facility] Start: 1965 Creatinine measurement Creatinine Level [facility] Start: 1965 Echocardiography Echocardiogram [facility] Start: 1965 Glaucoma screening Diabetic Ophthalmology Exam [facility] Start: 1965 Hemoglobin A1c measurement Diabetes: Hemoglobin A1C [facility] Start: 1965 HIV screening HIV Screening [facility] Start: 1965 Lipid panel Lipid Panel [facility] Start: 1965 Potassium measurement Potassium Level [facility] Start: 1965 Screening for malignant neoplasm of colon [facility] Start: 1965 Tobacco Counseling Tobacco Counseling [facility] Start: 1965 Yearly Adult Physical Yearly Adult Physical [facility] Bacteria identified in Blood by Culture [facility] Comprehensive metabo lic 2000 panel - Serum or Plasma 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 Patient Education [facility] Work Phone: Patient referral [facility] Work Phone: End: 01-17-2024 [facility] Work Phone: Comment on above: Once for 1 Occurrences starting 01/17/20 until 01/17/2024 [facility] Immunizations Immunization Date Immunization Notes Care Provider Sachin pettit 11-13-2020 Pfizer-BioNTech COVI D-19 Vacc 30 MCG/0.3ML Intramuscular Suspension Teresa Lynch Work Phone: [facility] 10-23-2020 Pfizer-BioNTech COVI D-19 Vacc 30 MCG/0.3ML Intramuscular Suspension Teresa Lynch Work Phone: [facility] 01-14-2019 influenza, seasonal, injectable Teresa Lynch Other [facility] 01-14-2019 influenza virus vacc ine, unspecified formulation Yeyo ROWE [facility] 04-02-2018 influenza virus vacc ine, unspecified formulation Yeyo ROWE [facility] 04-02-2018 influenza, injectabl e, quadrivalent, preservative free DO Teresa Lynch Work Phone: [facility] 03-05-2018 influenza virus vacc ine, unspecified formulation Teresa Lynch Work Phone: [facility] 250 DO Work Phone: 03-05-2018 pneumococcal polysaccharide vaccine, 23 valent Teresa Lynch Work Phone: [facility] 250 DO Work Phone: 03-07-2016 influenza virus vacc ine, unspecified formulation Yeyo ROWE [facility] 03-07-2016 influenza, injectabl e, quadrivalent, preservative free Teresa Lynch Work Phone: [facility] 02-22-2016 pneumococcal polysaccharide vaccine, 23 valent Teresa Lynch Work Phone: [facility] Payers Date Payer Category Payer Medicaid [id number] 2023 Self-pay [id number] 2022 Private Health Insurance [id number] 2022 Private Health Insurance [id number] 2022 Private Health Insurance [id number] 2022 Medicaid [id number] 2022 Unknown 1965 Unknown [id number] 2.16.84 [id number] 1965 Unknown [id number] 2.16.8 40.1.148758.3.579.2.1068 1965 Unknown [id number] 2.16. [id number] 1965 Unknown [id number] 2.16. [id number] 1965 Unknown [id number] 2.16. 840.1.172693.3.579.2.356 1965 Unknown [id number] 2.16.8 40.1.726723.3.579.2.1286 1965 Unknown [id number] 2.16.8 40.1.391624.3.579.2.1286 1965 Unknown [id number] 2.16.8 40.1.528657.3.579.2.1286 1965 Unknown [id number] 2.16.8 40.1.516584.3.579.2.128 1965 Unknown [id number] 2.16.8 40.1.843247.3.579.2.1285 1965 Unknown [id number] 2.16.8 40.1.666422.3.579.2.128 1965 Unknown [id number] 2.16.8 40.1.197502.3.579.2.128 1965 Unknown [id number] 2.16.8 40.1.519131.3.579.2.128 1965 Unknown [id number] 2.16.8 40.1.737117.3.579.2.1246 1965 Unknown [id number] 2.16.8 40.1.659283.3.579.2. 1965 Unknown [id number] 2.16.8 40.1.074121.3.579.2.72 1965 Unknown [id number] 2.16.8 40.1.900773.3.579.2. 1965 Unknown [id number] 2.16.8 40.1.032550.3.579.2. 1965 Unknown [id number] 2.16.8 40.1.167816.3.579.2.727 1965 Unknown [id number] 2.16.8 40.1.891294.3.579.2.727 1965 Unknown [id number] 2.16.8 40.1.576723.3.579.2.72 1965 Unknown [id number] 2.16.8 40.1.636985.3.579.2.72 1965 Unknown [id number] 2.16.8 40.1.872954.3.579.2.72 1965 Unknown [id number] 2.16.8 40.1.834670.3.579.2. 1965 Unknown [id number] 2.16.8 40.1.857748.3.579.2 1965 Unknown [id number] 2.16.8 40.1.580985.3.579.2 1965 Unknown [id number] 2.16.8 40.1.016716.3.579.2 1965 Unknown [id number] 2.16.8 40.1.726492.3.579.2 1965 Unknown [id number] 2.16.8 40.1.893390.3.579.2 1965 Unknown [id number] 2.16.8 40.1.366176.3.579.2 1965 Unknown [id number] 2.16.8 40.1.927205.3.579.2 1965 Unknown [id number] 2.16.8 40.1.436436.3.579.2 1965 Unknown [id number] 2.16.8 40.1.600483.3.579.2 1965 Unknown [id number] 2.16.8 40.1.823140.3.579.2 1965 Unknown [id number] 2.16.8 40.1.463602.3.579.2 1965 Unknown [id number] 2.16.8 40.1.457036.3.579.2 1965 Unknown [id number] 2.16.8 40.1.617497.3.579.2 1965 Unknown [id number] 2.16.8 40.1.347504.3.579.2 1965 Unknown [id number] 2.16.8 40.1.845936.3.579.2 1965 Unknown [id number] 2.16.8 40.1.183440.3.579.2.727 1965 Unknown [id number] 2.16.8 40.1.448830.3.579.2.727 1965 Unknown [id number] 2.16.8 40.1.826772.3.579.2.1286 1965 Unknown [id number] 2.16.8 40.1.252402.3.579.2.1285 1965 Unknown [id number] 2.16.8 40.1.764428.3.579.2.128 1965 Unknown [id number] 2.16.8 40.1.775467.3.579.2.1285 1965 Unknown [id number] .16.8 40.1.272714.3.579.2.1285 1965 Unknown [id number] 2.16.8 40.1.730724.3.579.2.128 1965 Unknown [id number] 2.16.8 40.1.799821.3.579.2.727 1965 Unknown [id number] 2.16.8 40.1.297120.3.579.2.727 1965 Unknown [id number] .16.8 40.1.417509.3.579.2.727 1965 Unknown [id number] 2.16.8 40.1.468313.3.579.2.1244 1965 Unknown [id number] .16.8 40.1.790820.3.579.2.1244 1959 Unknown [id number] 2.1 6.840.1.373808.19 Unknown [id number] 2.16.8 40.1.443759.3.579.2.531 Unknown [id number] 2.16.8 40.1.277365.3.579.2.531 Unknown [id number] 2.16.8 40.1.293374.3.579.2.531 Unknown [id number] 2.16.8 40.1.369909.3.579.2.531 Unknown [id number] 2.16.8 40.1.496629.3.579.2.531 Unknown [id number] 2.16.8 40.1.429748.3.579.2.531 Unknown [id number] 2.16.8 40.1.367196.3.579.2.531 Unknown [id number] 2.16.8 40.1.759247.3.579.2.531 Unknown [id number] 2.16.8 40.1.314671.3.579.2.531 Social History Date Type Detail Facility Start: 08-08-2023 End: 01-18-2024 Caffeine use Caffeine use [facility] [employer] Other Comment on above: 2 cups coffee, 4-6 c ups tea daily, occaional soda; qauit 07/2020; Start: 08-08-2023 End: 01-18-2024 Sex Assigned At [facility] Start: 07-14-2020 End: 04-23-2024 Tobacco smoking status NHIS Smoker (finding) [facility] Start: 1965 Sex Assigned At Male [facility] Start: 11-23-2022 End: 05-27-2024 Tobacco smoking status Heavy tobacco smoker (finding) [facility] Tobacco smoking status Never [facility] Start: 10-24-2023 Tobacco smoking stat us NHIS Ex-smoker [facility] Start: 10-05-1981 End: 06-05-2020 History of tobacco use Cigarette Smoker [facility] Start: 10-24-2023 End: 11-07-2023 Tobacco use and exposure Smokeless tobacco non-user [facility] Work Phone: Start: 10-24-2023 End: 01-01-2024 Alcoholic beverage intake Lifetime non-drinker (finding) [facility] Work Phone: Start: 1965 Sex assigned at Not on file P Metaps Start: 10-14-2023 End: 01-17-2024 Exposure to SARS-CoV-2 (event) Not sure [facility] Start: 03-10-2024 Tobacco smoking stat us NHIS Unknown if ever smoked [facility] Start: 01-06-2015 End: 04-23-2024 Sex Male (finding) [facility] Start: 10-05-1981 End: 11-07-2023 Tobacco smoking status NHIS Smokes tobacco daily [facility] Start: 11-10-2023 End: 01-18-2024 Alcoholic beverage intake Ex-drinker (finding) [facility] Has the [employer], or [employer] threatened to shut off services in your home in past 12Mo No [employer] How often to you hav e a drink containing alcohol? 2-4 times a month [employer] How many standard drinks containing alcohol do you have on a typical day? 1 or 2 [employer] How often do you hav e 6 or more drinks on 1 occasion? Never [employer] Medical Equipment Procedure Code Equipment Code [...] 120 CM FDA Start: 09-27-2018 Start: 12-16-2013 [id number] FDA Start: 07-14-2020 Insulin Syringe,Safety Needle 1 mL 30 gauge x 1/2 syringe Start: 03-29-2024 Pen Needle, Diabetic (Comfort Ez Pen [place]) 32 gauge x 5/32 needle Start: 04-15-2024 Insulin Syringe,Safety Needle 1 mL 30 gauge x 1/2 syringe Start: 03-29-2024 Pen Needle, Diabetic (Comfort Ez Pen [place]) 32 gauge x 5/32 needle Start: 04-15-2024 LLE Angiogram Unknown 01/08/24 Non Biological Left Femoral Artery/Vein FDA Start: 01-08-2024 LLE Angiogram Unknown 01/08/24 Non Biological Left Femoral Artery/Vein FDA Start: 01-08-2024 LLE Angiogram Unknown 01/08/24 Non Biological Left Femoral Artery/Vein FDA Start: 01-08-2024 Graft Vsc 50cm 6 mm [place] Thnwl Hep Propaten Ptfe Rem Rng - [id number] Start: 11-08-2023 Comment on above: Description: RIGHT F EMORAL ARTERY Stent Vsc Epic 10mm 100mm 120cm 6fr Rdpq Otw Slf Xpd Gw - [id number] FDA Start: 11-07-2023 Goals Date Patient Goal Desired Activity /State Personal health goal Comment on above: Formatting of this n ote might be different from the original. Evaluation of progress towards goal: Patient is planning to transition back to SNF at discharge. Functional Status Date Assessment Result Facility 05-27-2024 Functional Status N/A [facility] 03-13-2024 Functional status [facility] at [facility] Work Phone: 03-06-2024 Functional status Patient at [facility] Work Phone: 02-12-2024 Functional Status No [facility] 10-23-2023 Functional Status No [facility] 06-02-2023 Functional Status N/A [facility] 02-14-2023 Functional Status N/A [facility] 01-30-2023 Functional Status N/A [facility] 11-23-2022 Functional Status N/A [facility] Mental Status Date Assessment Result Facility 03-13-2024 Cognitive function [facility] at [facility] Work Phone: 03-06-2024 Cognitive function [facility] at [facility] Work Phone: Clinical Notes 06-23-2021 to 05-27-2024 Radiology Note Date & Type Note Facility 05-27-2024 Hospital Discharge instructions Patient Education 05/27/2024 16:01:01 Benign Prostatic Hyperplasia Benign Prostatic Hyperplasia Benign [...] urethra. Follow these instructions at home: Take vlgh-eih-waddoti and prescription medicines only as told by [...] provider. Document Revised: 12/08/2021 Document Reviewed: 12/08/2021 ePub Direct Patient Education 2023 [employer]. Follow Up Care 04/01/2024 10:56:08 With:SOLEDAD HERRERA, Yeyo Blum, URL Address: [facility] [address] , [place] [address]- [phone] When: Unknown [facility]27-[facility] Note Patient Education Urology Benign Prostatic Hyperplasia Benign [...] or symptoms? Symptoms of this condition include: ??? Getting up often during the night to urinate. ??? Needing to urinate frequently during the day. ??? Difficulty starting urine flow. ??? Decrease in size and strength of your urine stream. ??? Leaking (dribbling) after urinating. ??? Inability to pass urine. This needs immediate treatment. ??? Inability to completely empty your bladder. ??? Pain when you pass urine. This is more common if there is also an infection. ??? Urinary tract infection (UTI). How is this diagnosed? This condition is diagnosed based on your medical history, a physical exam, and your symptoms. Tests will also be done, such as: ??? A post-void bladder scan. This measures any amount of urine that may remain in your bladder after you finish urinating. ??? A digital rectal exam. In a rectal exam, your health care provider checks your prostate by putting a lubricated, gloved finger into your rectum to feel the back of your prostate gland. This exam detects the size of your gland and any abnormal lumps or growths. ??? An exam of your urine (urinalysis). ??? A prostate specific antigen (PSA) screening. This is a blood test used to screen for prostate cancer. ??? An ultrasound. This test uses sound waves [...] severity of your condition. Treatment may include: ??? Observation and yearly exams. This may be the only treatment needed if your condition and symptoms are mild. ??? Medicines to relieve your symptoms, including: ? Medicines to shrink the prostate. ? Medicines to relax the muscle of the prostate. ??? Surgery in severe cases. Surgery may include: [...] the urethra. Follow these instructions at home: ??? Take goik-yfn-qexclpy and prescription medicines only as told by your health care provider. ??? Monitor your symptoms for any changes. Contact your health care provider with any changes. ??? Avoid drinking large amounts of liquid before going to bed or out in public. ??? Avoid or reduce how much caffeine or alcohol you drink. ??? Give yourself time when you urinate. ??? Keep all follow-up visits. This is important. Contact a health care provider if: ??? You have unexplained back pain. ??? Your symptoms do not get (more content not included)... [facility] 05-27-2024 Evaluation + Plan note Diagnostic Tests PendingPSA Total 05/27/24 Future Scheduled TestsUS PVR Lower EXT Complete Bilat 11/20/23 [facility] 04-23-2024 Procedure note [facility] 04-23-2024 History and physical note [facility] 04-05-2024 Evaluation note Authored April 05, 2024 1:29pm Sooner if needed, the ER if concerns,The above note written by Cat Byrd LPN acting as human recorder, note dictated by Dr. Teresa Lynch [facility] Work Phone: 1(136) 671-170310-18-2024 Miscellaneous Notes* Telephone Encounter - Feli Stevenson - 03/22/2024 11:24 PM EDT Contract: 198 - Re: high Blood Sugars . Called Dr. Tam and connected to caller documented in this encounterRegional [facility] Center[facility]10-18-2024 Telephone encounter Note* Telephone Encounter - Feli Stevenson - 03/22/2024 11:24 PM EDT Contract: 198 - Re: high Blood Sugars . Called Dr. Tam and connected to caller [facility]10-15-2024 History of Present illness Narrative* Guero Tam, DO - 03/19/2024 5:25 PM EDT Patient Name: Myra Pickard Date of : 1965 Date of Service: 03/19/2024 Facility: [facility] Type of Visit: Skilled Visit Subjective Myra Pickard is a 58 y.o. male seen today at [facility] facility for No chief complaint on file. . Myra was seen today for a therapy visit. He is participating in therapy. He is doing great . The Lyrica is controlling his pain well. He was use baclofen as needed for muscle spasms that also workswell. His blood sugars have been pretty good. [...] vape. Allergies: Penicillins, Oxycodone-acetaminophen, Propoxyphene, Acetaminophen, Isosorbide dinitrate,and Latex Code Status: FULL CODE BP 124/78 [...] polyneuropathy associated with type 2 diabetes mellitus ([facility]) 2. Encounter for orthopedic aftercare following [...] BY: Guero Tam DO documented in this encounterWexner Medical Center10-11-2024 History of Present illness Narrative* Guero Tam DO - 03/15/2024 6:27 PM EDT Patient Name: Myra Pickard Date of : 1965 Date of Service: 03/15/2024 Facility: [facility] Type of Visit: Admission H&P Subjective Myra Pickard is a 58 y.o. male seen today at correction facility for admission for therapies. Myra returns to [facility] from [facility] where he was admitted for altered mental status. He does not really recall much detail around the time that he was admitted since hehad altered mental status. He was confused. They [...] and he was home alone. His daughter triedcalling and had difficulty getting hold of him so she went over and found him confused. They sent him to the hospital where he stayed for a bit. He saw Neurology and Gastroenterology. Some of his medications were stopped. He presents here for therapy. He is going to get a sleeve put on his knee andthen in a few months get fitted for prosthesis. He has no new problems to report. He does have phantom limb pain in his on Lyrica for that. Allergies: Penicillins and Latex Code Status: FULL CODE The following portions of the patient's history were reviewed and updated as appropriate: allergies, current medications, past family history, past medical history, past social history, past surgicalhistory, problem list, and medication reconciliation was completed including current medication andpost discharge medication. BP (!) 131/94 Pulse 84 [...] polyneuropathy associated with type 2 diabetes mellitus ([facility]) 2. Disorientation 3. Other abnormalities of gait and mobility 4. Status post partial amputation of right foot ([facility]) 5. Atherosclerosis of [place] coronary artery of [place] heart without angina pectoris 6. Atrial fibrillation ([facility]) 7. Primary hypertension Admit to [facility] for therapies. Plan to do therapy and then go home in a few weeks. Continue current regimen. Full code. Good rehab potential. ELECTRONICALLY SIGNED BY: Guero Tam DO documented in this encounterWexner Medical Center10-11-2024 Miscellaneous Notes* Telephone Encounter - Nancy Kim CMA - 03/15/2024 10:10 AM EDT Patients spouse called in to question about getting a winter intern sock. Stated patient is currently [facility] care facility. Please advise and call spouse. documented in this encounterWexner Medical Center10-11-2024 Telephone encounter Note* Telephone Encounter - Nancy Kim CMA - 03/15/2024 10:10 AM EDT Patients spouse called in to question about getting a winter intern sock. Stated patient is currently isin a care facility. Please advise and call spouse. [facility]10[facility] Discharge summary Author Remberto Ervin [facility] March 13, 2024 9:46am Note Date/Time March 13, 2024 9: 46am [facility] [address] [place] [address] Discharge Summary Signed Patient: Myra Pickard SR MR#: [id number] : 1965 Acct:[id number] Age/Sex: 58 / M Adm Date: 4 Loc: Room: [address] [place] [address]: Remberto Ervin MD Copies to: DO Remberto Guzman MD~ Providers Date of Discharge: 03/13/24 Discharging Provider: Remberto Ervin Primary Care Provider: Teresa Lynch Consults: 03/08/24 14:15 Consult to Telemedicine [...] colleague in collaboration with other specialists and client application support specialist. Patient came in with a [...] ask her primary care doctor to obtain [facility] record entirely to address abnormalities seen on labs and imagingthat I have and have not addressed during this hospitalization, follow-up on pending blood work, imaging and pathology is if available and to follow-up on needed medical care in the outpatient setting. Time Spent with Patient Time spent providing/coordinating discharge services (# min): 45 Discharge Plan Discharge Plan Patient Disposition: Senior Living Facility Activity: No Activity Restriction Additional Instructions: I may not have addressed or treated all of your medical illnesses or the abnormal blood work or imaging studies during this hospitalization. Please ask your primary care provider to obtain [facility] records entirely to follow up on all of the abnormal physical, laboratory, and imaging findings that I have not addressed. Please return back to the emergency room or seek medical attention if your symptoms worsen or return. Discharging you from [facility] does not mean that your medical [...] 90 Days Qty: 180 1RF (DME) Free[employer] Jigar 2 Sensor Kit See Rx Instructions .ROUTE Qty: 1 0RF Rx Instructions: As directed (DME) FreeStyle Jigar 2 [place] Misc See Rx Instructions .ROUTE Qty: 1 [...] 16:02 Blood Culture Stat 03/10/24 06:49 NMDA [W-ayhuro-N-Aspartate IgG, Ser] IN AM Preliminary micro results [...] % (Auto) 66.7, Lymph % (Auto) 14.7, Sanders % (Auto) 14.4, Eos % (Auto) 3.0, Baso % (Auto) 1.2, Nucleat RBC Rel Count 0.1, Neut # (Auto) 4.0, Lymph # (Auto) 0.9 L, Sanders # (Auto) 0.9 H, Eos # (Auto) [...] By: <Electronically signed by Remberto Ervin MD> 03/13/24 [address] [facility] Work Phone: 1(135) 562-105810-08-2024 Progress note Author João Powell [facility] March 12, 2024 1:46pm Note Date/Time March 12, 2024 1: 34pm [facility] [address] [place] [address] Hospitalist Progress Note Signed Patient: Myra Pickard SR MR#: [id number] : 1965 Acct:[id number] Age/Sex: 58 / M Adm Date: 4 Loc: Room: [address] [place] [address] Type: ADM IN Attending Dr: João Powell [...] 2 units TID.WM.HS SATISH Administration Protocol Ipratropium [place] 0.5 mg 03/08/24 20:00 03/12/24 09:34 Ipratropium [place] 0.5 Mg/2.5 Ml Vial.Neb INHALATION 03/08/25 19:59 [...] signed by João Powell MD> 03/12/24 [address] [facility] Work Phone: 1(304) 282-868210-08-2024 Progress note Author Mike Burleson [facility] March 12, 2024 9:28am Note Date/Time March 12, 2024 9: 28am [facility] [address] [place] [address] Gastroenterology PN Signed Patient: Myra Pickard SR MR#: [id number] : 1965 Acct:[id number] Age/Sex: 58 / M Adm Date: 4 Loc: 3T Room: [address] [place] [address] Type: ADM IN Attending Dr: João Powell [...] 1 units TID.WM.HS SATISH Administration Protocol Ipratropium [place] 0.5 mg 03/08/24 20:00 03/12/24 06:05 Ipratropium [place] 0.5 Mg/2.5 Ml Vial.Neb INHALATION 03/08/25 19:59 [...] <Electronically signed by Mike Burleson MD> 03/12/24927 [facility] Work Phone: 1(921) 116-576810-07-2024 Progress note Author João Powell [facility] March 11, 2024 1:38pm Note Date/Time March 11, 2024 1: 35pm [facility] [address] [place] [address] Hospitalist Progress Note Signed Patient: Myra Pickard SR MR#: [id number] : 1965 Acct:[id number] Age/Sex: 58 / M Adm Date: 4 Loc: Room: [address] [place] [address] Type: ADM IN Attending Dr: João Powell [...] 03/09/24 22:00 03/10/24 21:09 Duloxetine 30 Mg Capsule.Dr PO 03/09/25 21:59 30 mg QHS SATISH Administration Ferrous Sulfate 324 mg 03/08/24 20:00 10/06/24 21:09 Ferrous Sulfate 324 Mg Tablet. PO [...] 11:59 Not Given TID.WM.HS SATISH Protocol Ipratropium [place] 0.5 mg 03/08/24 20:00 03/11/24 10:15 Ipratropium [place] 0.5 Mg/2.5 Ml Vial.Neb INHALATION 03/08/25 19:59 [...] following, obtain MRI abdomen and MRCP -PT eval recs appreciated Spoke to his at bedside last afternoon. Will update family today. Time Spent With Patient (min): 45 Documented By: João Powell MD 03/11/241333 Signed By: <Electronically signed by João Powell MD> 03/11/24 [address] [facility] Work Phone: 1(218) 720-746510-06-2024 Progress note Author Luther Dozier [facility] March 10, 2024 11:31am Note Date/Time March 10, 2024 11 :31am [facility] [address] [place] [address] Neurology Progress Note Signed Patient: Myra Pickard SR MR#: [id number] : 1965 Acct:[id number] Age/Sex: 58 / M Adm Date: 4 Loc: 3T Room: [address] [place] [address] Type: ADM IN Attending Dr: João Powell [...] Therapy Recommendations: PT Recommendations PT Recommended Discharge Senior Living Facility,Inpatient Rehab Unit Location PT Recommended Services [...] of breathing. He is alert. Oriented to [facility], March. Speech is fluent and nondysarthric. [...] signed by Luther Dozier DO> 03/10/24 [address] [facility] Work Phone: 1(499) 401-700910-06-2024 Consult note Author Mike Burleson [facility] March 10, 2024 11:29am Note Date/Time March 10, 2024 11 :29am [facility] [address] [place] [address] Gastroenterology Consult Note Signed Patient: Myra Pickard SR MR#: [id number] : 1965 Acct:[id number] Age/Sex: 58 / M Adm Date: 4 Loc: 3T Room: [address] [place] [address] Type: ADM IN Attending Dr: João Powell [...] Denies easy bruising Allergic/Immunologic Allergic/Immunologic: Denies wheezing [facility] Medical History Vitamin D deficiency Spondylosis of [...] mass Atrial fibrillation Atherosclerotic heart disease of [place] coronary artery with unspecified angina pectoris Anxiety [...] Use Type: None Social History Comments: at [facility] for re[facility] Meds Medications and Allergies Allergies [...] [History Confirmed 03/08/24] flash glucose scanning reader ([employer] Jigar 2 [place]) #1 ea 12/28/23 [Rx Confirmed 03/08/24] flash glucose sensor (Z[employer] Jigar 2 Sensor kit) #1 ea 12/28/23 [Rx [...] % (Auto) 83.4 Lymph % (Auto) 4.9 Sanders % (Auto) 10.6 Eos % (Auto) 0.8 Baso % (Auto) 0.3 Nucleat RBC Rel Count 0.2 Neut # (Auto) 11.4 H Lymph # (Auto) 0.7 L [place] # (Auto) 1.5 H Eos # (Auto) [...] MPV Neut % (Auto) Lymph % (Auto) Sanders % (Auto) Eos % (Auto) Baso % (Auto) Nucleat RBC Rel Count Neut # (Auto) Lymph # (Auto) Sanders # (Auto) Eos # (Auto) Baso # [...] <Electronically signed by Mike Burleson MD> 03/10/24 [facility] Work Phone: 1(145) 214-487710-06-2024 Progress note Author João Powell [facility] March 10, 2024 10:14am Note Date/Time March 10, 2024 10 :14am [facility] [address] [place] [address] Hospitalist Progress Note Signed Patient: Myra Pickard SR MR#: [id number] : 1965 Acct:[id number] Age/Sex: 58 / M Adm Date: 4 Loc: 3T Room: [address] [place] [address] Type: ADM IN Attending Dr: João Powell [...] Tablet PO 03/09/25 08:59 80 mg DAILY SATSIH Administration Duloxetine HCl 30 mg 03/09/24 22:00 [...] IV 03/10/25 09:22 DAILY PRN Hypomagnesemia Ipratropium [place] 0.5 mg 03/08/24 20:00 03/10/24 05:25 Ipratropium [place] 0.5 Mg/2.5 Ml Vial.Neb INHALATION 03/08/25 19:59 [...] signed by João Powell MD> 03/10/24 [address] [facility] Work Phone: 1(748) 456-978010-05-2024 Progress note Author João Powell [facility] March 09, 2024 11:32am Note Date/Time March 09, 2024 10 :57am [facility] [address] [place] [address] Hospitalist Progress Note Signed Patient: Myra Pickard MR#: [id number] : 1965 Acct:[id number] Age/Sex: 58 / M Adm Date: 4 Loc: Room: [address] [place] [address] Type: ADM IN Attending Dr: João Powell [...] 81 Mg Tab.Chew PO 03/09/25 08:59 DAILY SATISH Atorvastatin Calcium 80 mg 03/09/24 09:00 Atorvastatin 80 Mg Tablet PO 03/09/25 08:59 DAILY SATISH Ferrous Sulfate 324 mg 03/08/24 20:00 03/08/24 22:52 Ferrous Sulfate 324 Mg Tablet. PO 03/08/25 19:59 324 mg Q48H SATISH Administration Heparin Sodium (Porcine) 5,000 unit 03/08/24 22:00 03/09/24 05:31 Heparin 5,000 Unit/Ml Vial SUBCUT 03/08/25 21:59 5,000 unit Q8HR SATISH Administration Ipratropium [place] 0.5 mg 03/08/24 20:00 03/09/24 09:14 Ipratropium [place] 0.5 Mg/2.5 Ml Vial.Neb INHALATION 03/08/25 19:59 [...] SATISH Pantoprazole Sodium 40 mg 03/09/24 09:00 Pantoprazole 40 Mg Tablet. PO 03/09/25 08:59 DAILY [facility] Sodium Chloride 0 ml 03/08/24 14:21 03/08/24 [...] <Electronically signed by João Powell MD> 03/09/24 1137 [facility] Work Phone: 1(223) 565-338810-05-2024 Consult note Author Job James [facility] March 09, 2024 11:12am Note Date/Time March 09, 2024 11 :10am [facility] [address] [place] [address] Psychiatry Consult Note Signed Patient: Myra Pickard SR MR#: [id number] : 1965 Acct:[id number] Age/Sex: 58 / M Adm Date: 4 Loc: Room: [address] [place] [address] Type : ADM IN Attending Dr: João Powell MD Copies to: MD Teresa Oates DO Mohamad Akil, MD~ HPI Consult Date: 03/09/24 Requesting Physician: João Powell MD Primary Care Provider: Teresa Lynch DO Consult Narrative HPI: Mr. Pickard [...] more like retaliation Insight: fair Judgment: fair [facility] Medical History Vitamin D deficiency Spondylosis of [...] mass Atrial fibrillation Atherosclerotic heart disease of [place] coronary artery with unspecified angina pectoris Anxiety [...] Use Type: None Social History Comments: at [facility] [place] for rehab Meds Medications and Allergies Allergies [...] [History Confirmed 03/08/24] flash glucose scanning reader (PatientFocusStyle Jigar 2 Belden) #1 ea 12/28/23 [Rx Confirmed 03/08/24] flash glucose sensor (FreeStyle Jigar 2 Sensor kit) #1 ea 12/28/23 [Rx [...] Appearance Clear Urine pH 5.0 Ur Specific [place] 1.013 Urine Protein Negative Urine Glucose (UA) [...] status, unspecified Documented By: Job James MD 03/09/243 Signed By: <Electronically signed by Job James MD> 03/09/24 1112 [facility] Work Phone: 1(693) 224-770310-05-2024 Consult note Author Luther Dozier [facility] March 09, 2024 10:59am Note Date/Time March 09, 2024 9: 07am [facility] [address] [place] [address] Neurology Consult Note Signed Patient: Myra Pickard SR MR#: [id number] : 1965 Acct:[id number] Age/Sex: 58 / M Adm Date: 4 Loc: 3T Room: [address] [place] [address] Type: ADM IN Attending Dr: João Powell MD Copies to: DO Teresa Freeman DO Mohamad Akil, MD~ HPI Consult Date: 03/09/24 Director Skills: Luther Dozier DO [facility] Medical History Vitamin D deficiency Spondylosis of [...] mass Atrial fibrillation Atherosclerotic heart disease of [place] coronary artery with unspecified angina pectoris Anxiety [...] Use Type: None Social History Comments: at [facility] for rehab Meds Medications and Allergies Allergies [...] [History Confirmed 03/08/24] flash glucose scanning reader (PatientFocusStyle Jigar 2 Belden) #1 ea 12/28/23 [Rx Confirmed 03/08/24] flash glucose sensor (FreeStyle Jigar 2 Sensor kit) #1 ea 12/28/23 [Rx [...] Marks Jr., D.O.03/08/2024 2:41 PM Dictation Location: [place] [address] Chest X-Ray 03/08/24 17:03 IMPRESSION: No acute process. Impression dictated by: Sudeep Lind M.D.03/08/2024 6:08 PM Dictation Location: [place] [address] Brain MRI 03/08/24 17:48 IMPRESSION: No acute intracranial process. Impression dictated by: Sudeep Lind M.D.03/08/2024 8:10 PM Dictation Location: [place] [address] Assessment/Plan (1) Altered mental status: Qualifiers: Altered mental status type: unspecified Qualified Code(s): R41.82 - Altered mental status, unspecified Plan CONSULT REASON: Sudden AMS, stroke ruled out HPI: 58-year-old man. History that includes coronary artery disease with PCI, peripheral vascular disease, type 2 diabetes, hypertension, heart failure, diabetic neuropathy, status post recent below the knee amputation at [facility]. He had just been here several days [...] <Electronically signed by Luther Dozier DO> 03/09/24 1059 [facility] Work Phone: 1(223) 968-290210-05-2024 History and physical note Author João Powell [facility] March 08, 2024 10:05pm Note Date/Time March 08, 2024 7: 19pm [facility] [address] [place] [address] Hospitalist H&P Signed Patient: Myra Pickard SR MR#: [id number] : 1965 Acct:[id number] Age/Sex: 58 / M Adm Date: 4 Loc: Room: [address] [place] [address] Type: ADM IN Attending Dr: João Powell [...] neuropathy status post right BKA recently at [facility], here today for altered mental status. History [...] neck were all negative. ED staff contacted [place] neuro stroke team and patient was deemed not eligible Jessica. Patient is being admitted under the hospitalist [...] of Systems Unobtainable due to mental status [facility] Medical History Vitamin D deficiency Spondylosis of [...] mass Atrial fibrillation Atherosclerotic heart disease of [place] coronary artery with unspecified angina pectoris Anxiety [...] Use Type: None Social History Comments: at [facility] for rehab Meds Medications and Allergies Allergies [...] [History Confirmed 03/08/24] flash glucose scanning reader (PatientFocusStyle Jigar 2 Belden) #1 ea 12/28/23 [Rx Confirmed 03/08/24] flash glucose sensor (FreeStyle Jigar 2 Sensor kit) #1 ea 12/28/23 [Rx [...] % (Auto) 13.1 % (.) 03/08/24 14:15 Sanders % (Auto) 13.2 % (.) 03/08/24 14:15 Eos % (Auto) 3.3 % (.) 03/08/24 14:15 Baso % (Auto) 1.0 % (.) 03/08/24 14:15 Nucleat RBC Rel Count 0.2 /100 WBC (0-0.5) 03/08/24 14:15 Neut # (Auto) 6.2 x10E3/uL (1.8-7.7) 03/08/24 14:15 Lymph # (Auto) 1.2 x10E3/uL (1.00-4.8) 03/08/24 14:15 Sanders # (Auto) 1.2 x10E3/uL (0.0-0.8) H 03/08/24 [...] pH 5.0 (5.0-9.0) 03/08/24 16:11 Ur Specific [place] 1.013 (1.001-1.030) 03/08/24 16:11 Urine Protein Negative [...] <Electronically signed by João Powell MD> 03/08/24 1795 [facility] Work Phone: 1(643) 866-327310-01-2024 Progress note Author Luther Dozier [facility] March 05, 2024 2:28pm Note Date/Time March 05, 2024 2: 22pm [facility] [address] [place] [address] Neurology Progress Note Signed Patient: Myra Pickard MR#: [id number] : 1965 Acct:[id number] Age/Sex: 58 / M Adm Date: 4 Loc: 3T Room: [address] [place] [address] Type: ADM IN Attending Dr: João Powell [...] Therapy Recommendations: OT Recommendations OT Recommended Discharge Senior Living Facility Location PT Recommendations PT Recommended Discharge Senior Living Facility Location PT Recommended Services at Physical [...] <Electronically signed by Luther Dozier DO> 03/05/24 4474 [facility] Work Phone: 1(552) 493-201410-01-2024 Progress note Author João Powell [facility] March 05, 2024 2:17pm Note Date/Time March 05, 2024 2: 17pm [facility] [address] [place] [address] Hospitalist Progress Note Signed Patient: Myra Pickard SR MR#: [id number] : 1965 Acct:[id number] Age/Sex: 58 / M Adm Date: 4 Loc: Room: [address] [place] [address] Type: ADM IN Attending Dr: João Powell [...] 1,000 Ml IV 03/03/25 17:59 60 mls/hr .[id number] SATISH Administration Ferric Sodium Gluconate 110 mls @ 110 mls/hr 03/05/24 12:00 03/05/24 13:18 Complex 125 mg/ Sodium IV 03/07/24 09:01 110 mls/hr Chloride QAM SATISH Administration Insulin Aspart 0 units 03/04/24 12:00 03/05/24 11:41 Insulin Aspart 300 Units/3 Ml Insuln.Pen SUBCUT 03/04/25 11:59 Not Given TID.WM.HS SATISH Protocol Ipratropium [place] 0.5 mg 03/04/24 09:00 03/05/24 13:59 Ipratropium [place] 0.5 Mg/2.5 Ml Vial.Neb INHALATION 03/04/25 08:59 [...] 03/04/24 09:00 03/05/24 09:15 Pantoprazole 40 Mg Tablet. PO 03/04/25 08:59 40 mg BID SATISH [...] 45 Documented By: João Powell MD 03/05/24 9954 Signed By: <Electronically signed by João Powell MD> 03/05/24 5292 [facility] Work Phone: 1(893) 201-215610-01-2024 Consult note Author Mike Burleson [facility] March 05, 2024 1:35pm Note Date/Time March 05, 2024 9: 32am [facility] [address] [place] [address] Gastroenterology Consult Note Signed Patient: Myra Pickard SR MR#: [id number] : 1965 Acct:[id number] Age/Sex: 58 / M Adm Date: 4 Loc: Room: [address] [place] [address] Type: ADM IN Attending Dr: João Powell [...] Hematologic/Lymphatic: Denies easy bruising and Denies lymphadenopathy [facility] Medical History Vitamin D deficiency Spondylosis of [...] mass Atrial fibrillation Atherosclerotic heart disease of [place] coronary artery with unspecified angina pectoris Anxiety [...] Use Type: None Social History Comments: at [facility] for rehab Meds Medications and Allergies Allergies [...] 12/25/23[Rx Confirmed 03/03/24] flash glucose scanning reader ([employer] Jigar 2 Belden) #1 ea 12/28/23 [Rx Confirmed 03/03/24] flash glucose sensor (FreeStyle Jigar 2 Sensor kit) #1 ea 12/28/23 [Rx [...] MPV Neut % (Auto) Lymph % (Auto) Sanders % (Auto) Eos % (Auto) Baso % (Auto) Nucleat RBC Rel Count Neut # (Auto) Lymph # (Auto) Sanders # (Auto) Eos # (Auto) Baso # [...] Blood Type Recheck Antibody Screen Negative Crossmatch (AHG) See Detail 03/04/24 03/04/24 03/04/24 13:07 14:29 16:32 Corrected WBC Uncorrected WBC Count RBC Hgb Hct MCV MCH MCHC RDW Plt Count MPV Neut % (Auto) Lymph % (Auto) Sanders % (Auto) Eos % (Auto) Baso % (Auto) Nucleat RBC Rel Count Neut # (Auto) Lymph # (Auto) Sanders # (Auto) Eos # (Auto) Baso # [...] Type Recheck O Positive Antibody Screen Crossmatch ([facility]) 03/04/24 03/05/24 03/05/24 20:45 06:11 06:54 Corrected WBC 8.3 Uncorrected WBC Count 8.3 RBC 3.83 L Hgb 8.6 L Hct 26.8 L MCV 70.1 L MCH 22.4 L MCHC 31.9 L RDW 21.4 H Plt Count 361 MPV 7.9 Neut % (Auto) 67.6 Lymph % (Auto) 16.1 Sanders % (Auto) 12.4 Eos % (Auto) 2.8 Baso % (Auto) 1.1 Nucleat RBC Rel Count 0.0 Neut # (Auto) 5.6 Lymph # (Auto) 1.3 Sanders # (Auto) 1.0 H Eos # (Auto) [...] Type Blood Type Recheck Antibody Screen Crossmatch ([facility]) A&P - Gastroenterology Assessment/Plan (1) Anemia: Plan -Iron studies show likely early iron deficiency. The patient is not having any overt GI bleeding and does not need any urgent endoscopic evaluation. -Recommend obtaining prior GI workup from [facility] -I recommend continuing his PPI -Recommend avoiding [...] follow-up with his previous GI team at [facility] Thank you for this consult, little further to add from a GI standpoint. I will peripherally follow pending discharge. Documented By: Mike Burleson MD 03/05/24 0932 Signed By: <Electronically signed by Mike Burleson MD> 03/05/24 133 [facility] Work Phone: 1(661) 374-734009-30-2024 Consult note Author Luther Dozier [facility] March 04, 2024 12:57pm Note Date/Time March 04, 2024 12:57pm [facility] [address] [place] [address] Neurology Consult Note Signed Patient: Myra Pickard SR MR#: [id number] : 1965 Acct:[id number] Age/Sex: 58 / M Adm Date: 4 Loc: Room: [address] [place] [address] Type: ADM INOo Attending Dr: João Powell MD Copies to: DO Teresa Freeman DO Mohamad Akil, MD~ HPI Consult Date: 03/04/24 Director Skills: Luther Dozier DO [facility] Medical History Vitamin D deficiency Spondylosis of [...] mass Atrial fibrillation Atherosclerotic heart disease of [place] coronary artery with unspecified angina pectoris Anxiety [...] Use Type: None Social History Comments: at [facility] for rehab Meds Medications and Allergies Allergies [...] 12/25/23[Rx Confirmed 03/03/24] flash glucose scanning reader ([employer] Jigar 2 Belden) #1 ea 12/28/23 [Rx Confirmed 03/03/24] flash glucose sensor (PatientFocusStyle Jigar 2 Sensor kit) #1 ea 12/28/23 [Rx [...] IMPRESSION: No acute process. Impression dictated by: Sudepe Lind M.D.03/03/2024 3:05 PM [facility]Pelvis CT 03/03/24 14:19 IMPRESSION: No acute findings. Moderate constipation. Impression dictated by: Sudeep Lind M.D.03/03/2024 3:01 PM [facility] Head CT 03/03/24 16:59 IMPRESSION: No acute findings. Impression dictated by: Sudeep Lind M.D.03/03/2024 5:50 PM Dictation Location: [place] [address] Assessment/Plan (1) Syncope: Qualifiers: Syncope type: unspecified Qualified Code(s): R55 - Syncope and collapse Plan CONSULT REASON: Syncope HPI: 58-year-old man. Significant bodily vasculopathy, probably secondary to diabetes. History of coronary artery disease requiring percutaneous intervention, peripheral vascular disease, type 2 diabetes, hypertension, severediabetic polyneuropathy, nonhealing right lower extremity wounds now status postright below the knee amputation about 3 weeks ago at [facility]. He was feeling lightheaded every time he [...] signed by Luther Dozier DO> 03/04/24 1257 [facility] Work Phone: 1(825) 206-980609-30-2024 Progress note Author João Powell [facility] March 04, 2024 11:53am Note Date/Time March 04, 2024 11:46am [facility] [address] [place] [address] Hospitalist Progress Note Signed Patient: Myra Pickard SR MR#: [id number] : 1965 Acct:[id number] Age/Sex: 58 / M Adm Date: 4 Loc: 3T Room: [address] [place] [address] Type: ADM INOo Attending Dr: João Powell [...] SATISH Baclofen 10 mg 03/03/24 22:50 03/04/24 05:31 Baclofen 10 Mg Tablet PO 03/03/25 22:49 10 mg Q6H PRN Administration muscle spasm Heparin Sodium (Porcine) 5,000 unit 03/04/24 06:00 03/04/24 05:31 Heparin 5,000 Unit/Ml Vial SUBCUT 03/04/25 05:59 5,000 unit Q8HR SATISH Administration Sodium Chloride 1,000 mls @ 60 mls/hr 03/03/24 18:00 03/04/24 10:27 0.9% Sodium Chloride 1,000 Ml IV 03/03/25 17:59 60 mls/hr .[id number] SATISH Administration Sodium Chloride 500 mls @ 20 mls/hr 03/04/24 09:29 0.9 % Sodium Chloride IV 03/05/24 09:28 PROTOCOL PRN BLOOD TRANSFUSION Ipratropium [place] 0.5 mg 03/04/24 09:00 03/04/24 10:47 Ipratropium [place] 0.5 Mg/2.5 Ml Vial.Neb INHALATION 03/04/25 08:59 [...] <Electronically signed by João Powell MD> 03/04/24 1157 [facility] Work Phone: 1(527) 949-727809-30-2024 History and physical note Author João Powell [facility] March 03, 2024 10:48pm Note Date/Time March 03, 2024 5:55pm [facility] [address] [place] [address] Hospitalist H&P Signed Patient: Myra Pickard SR MR#: [id number] : 1965 Acct:[id number] Age/Sex: 58 / M Adm Date: 4 Loc: Room: [address] [place] [address] Type: ADM INOo Attending Dr: João Powell MD Copies to: DO João Guzman MD~ HPI DATE OF EXAMINATION: 03/03/24 CHIEF COMPLAINT: passing out HISTORY OF PRESENT ILLNESS: Patient is a 58-year-old male with past medical's of coronary disease and PCI, PVD, type 2 diabetes, HTN, Heart failure as per the chart (could not specify hisEF or any recent echo on chart) diabetic neuropathy status post right BKA recently at [facility]. He presents today with episodes of lightheadedness [...] negative unless noted below or in HPI [facility] Medical History Vitamin D deficiency Spondylosis of [...] mass Atrial fibrillation Atherosclerotic heart disease of [place] coronary artery with unspecified angina pectoris Anxiety [...] 12/25/23[Rx Confirmed 03/03/24] flash glucose scanning reader ([employer] Jigar 2 Belden) #1 ea 12/28/23 [Rx Confirmed 03/03/24] flash glucose sensor (PatientFocusStyle Jigar 2 Sensor kit) #1 ea 12/28/23 [Rx [...] % (Auto) 18.2 % (.) 03/03/24 14:00 Sanders % (Auto) 11.3 % (.) 03/03/24 14:00 Eos % (Auto) 3.2 % (.) 03/03/24 14:00 Baso % (Auto) 1.7 % (.) 03/03/24 14:00 Nucleat RBC Rel Count 0.2 /100 WBC (0-0.5) 03/03/24 14:00 Neut # (Auto) 4.7 x10E3/uL (1.8-7.7) 03/03/24 14:00 Lymph # (Auto) 1.3 x10E3/uL (1.00-4.8) 03/03/24 14:00 Sanders # (Auto) 0.8 x10E3/uL (0.0-0.8) 03/03/24 14:00 [...] pH 5.0 (5.0-9.0) 03/03/24 14:35 Ur Specific [place] 1.009 (1.001-1.030) 03/03/24 14:35 Urine Protein Negative [...] 2 Documented By: João Powell MD 03/03/24 1731 Signed By: <Electronically signed by João Powell MD> 03/03/24 4819 [facility] Work Phone: 1([phone]) 854-391009-26-2024 History of Present illness Narrative* Mike Montes MD - 02/29/2024 9:30 AM EDT VASCULAR SURGERY NOTE HPI Myra Pickard is a 58 y.o. male comes in for post op evaluation after undergoing Right BKA. He is recovering well. On exam He looks good the wound looks good, wound is clean, dry and intact. No signsor symptoms of infection. Pain appears Well controlled. Assessment There are no diagnoses linked to this encounter. Plan Plan Myra Pickard will call with any changes or worsening of symptoms. Follow up Removal of toshia next week at [facility] and sizing for prosthesis.. documented in this [facility]24 History of Present illness Narrative* Guero Tam DO - 02/28/2024 2:51 PM EDT Patient Name: Myra Pickard Date of : 1965 Date of Service: 02/28/2024 Facility: [facility] Type of Visit: Skilled Visit Subjective Myra Pickard is a 58 y.o. male [facility]. Myra is in therapy. He is having a lot of pain and spasms in his left leg now that he is using that a lot and is his dominant leg. He would like a muscle relaxer. His pain is fairly well controlled with oxycodone 10 mg but it wears off early at times. No bowel or bladder symptoms. He is participating in therapy. He is seeing the surgeon tomorrow and getting his toshia out. Allergies: Penicillins, Acetaminophen, Isosorbide mononitrate, Latex, Oxycodone, and Tamsulosin Code Status: FULL CODE BP 129/77 Pulse 95 Temp 36.7 C (98 F) Resp 18 Wt 89.1 kg (196 lb 8 oz) SpO2 98% BMI 26.65 kg/m Physical Exam Constitutional: General: He is not in acute distress. Appearance: He is overweight. Comments: In bed Cardiovascular: Rate and Rhythm: Normal rate. Pulses: Normal pulses. Heart sounds: Normal heart sounds. No murmur heard. Pulmonary: Effort: Pulmonary effort is normal. No respiratory distress. Breath sounds: Normal breath sounds. No wheezing, rhonchi or rales. Musculoskeletal: Cervical back: Neck supple. Neurological: Mental Status: He is alert. Summary / Assessment / Plan 1. Encounter for orthopedic aftercare following surgical amputation 2. Cigarette smoker 3. Diabetic polyneuropathy associated with type 2 diabetes mellitus ([facility]) 4. Other abnormalities of gait and mobility 5. Muscle spasm I'm going to add baclofen 10 mg Q6hrs prn spasm. D/C januvia since he is on Trulicity. Continue therapy and other orders as directed. All medications reviewed and are medically necessary. ELECTRONICALLY SIGNED BY: Guero Tam DO documented in this encounterW[facility]09-20-2024 History of Present illness Narrative* Guero Tam DO - 02/23/2024 11:59 PM EDT ADMIT NOTE Patient seen and examined. H&P reviewed and updated. Imp: aftercare for right below-knee amputation Acquired absence of right leg below-knee Peripheral vascular disease Chronic kidney disease stage 4 Type 2 diabetes with chronic kidney disease COPD Unspecified dementia without behavioral disturbances Muscle weakness -generalized Abnormalities of gait and mobility Anemia Peripheral vascular angioplasty with implants and grafts Fibromyalgia Atherosclerotic heart disease of [place] coronary artery without angina pectoris GERD glaucoma Gout Hyperlipidemia Essential hypertension Migraine Polyneuropathy Obstructive and reflux uropathy RLS Osteoarthritis Dorsalgia Benign prostatic hyperplasia with lower urinary tract symptoms Bilateral carpal tunnel syndrome Heart failure unspecified Nicotine dependence of cigarettes Plan: Admit to [facility] for therapies. continue medications. Full code Renew oxycodone 10 mg Q6hrs prn Good rehab potential. Discharge to home when able to safely discharge documented in this encounterW[facility]09-18-2024 Hospital Discharge instructions Patient Education 02/21/2024 14:36:02 Living With an Amputation Living With an Amputation An amputation is a surgical procedure to remove all or part of an arm or leg (limb). After this surgery, it will take time for you to heal and get used to living with the amputation. There are thingsyou can do to help yourself adjust. Living with an amputation can be challenging, but it is often possible to do all of the activities that you used to do. How to manage lifestyle changes Return to your normal activities as told by your health care provider. Ask your health care provider what activities are safe for you. You may choose to have an artificial limb (prosthesis) made for you. Use and care for your prosthesis as told by your health care provider. Discuss your leisure interests with your health care provider and prosthesis specialist. Equipment changes can often be made, which may allow you to return to a sport or hobby. Some [employer] design adaptive equipment for this purpose. Talk with your health care team about returning to work. ?When you are ready to return to work, your therapists can evaluate your job site and make recommendations to help you do your job. ?If you are not able to return to the same job, your local Office of Vocational Rehabilitation can help you with job retraining. Talk with your health care provider about returning to driving. You may: ?Work with an occupational therapist to learn new ways to safely drive with an amputation. ?Work with a prosthesis specialist or physical therapist to identify assistive devices for safe driving. Challenges of living with an amputation Some common challenges of living with an amputation may cause stress. These issues are normal. Theyinclude: Changes in how you move around (mobility). Changes in how you care for yourself. Changes in how you participate in leisure activities. Emotions after the amputation, such as grief and anger. Issues with body image and weight. Problems with pain and treatment. How to manage stress Use these strategies to ease stress related to the daily challenges of living with an amputation: Be aware of any sources of your stress. Monitor yourself for symptoms of stress. Identify what challenges cause the most stress for you. Rethink the situation. Try to: ?Think realistically about stressful challenges. Do not ignore these challenges. Do not overreact to them. ?Understand what you would like to change about the situation and how you can set goals in that direction. Connect with other people who have gone through the same experience. Find ways to help relax your body and mind. These may include: ?Meditation, deep breathing, or progressive relaxation techniques. ?Hypnosis or guided imagery. ?Yoga or yojana chi. ?Biofeedback or mindfulness techniques. ?Keeping a journal. ?Doing hobbies, like listening to music or being out in nature. ?Exercise. Talk with your rehabilitation team about the best way to get 30 minutes of physical activity at least 5 days a week. Where to find support: Talking to others Look for a local or online support group for people living with an amputation. Talk about your emotional challenges, such as grief, with a mental health professional. Finances Talk to your insurance company about what assistive devices your plan covers. Contact national or local amputee charities to find out if you are eligible for scholarships and medical equipment for people in need. People in service may be eligible for financial assistance or programs that support amputees. Rehabilitation A rehabilitation program can help you regain mobility and independence. Your rehabilitation team may include: Physicians and nurses. Physical and occupational therapists. Prosthesis specialists. Social workers. Mental health professionals. Diet and nutrition specialists. Follow these instructions at home: Managing pain Work with your health care provider to manage any residual pain or pain in a body part that no longer exists (phantom limb pain). This may include: ?Pain medicine. ?Physical therapy. ?Techniques that help retrain the brain and nervous system (movement representation techniques). ?Sensory discrimination training. For this treatment, stimulation is applied to different parts of your stump, and you describe what you feel. ?Biofeedback. This involves using monitors that alert you to changes in your breathing, heart rate,skin temperature, or muscle activity, and using relaxation techniques to reverse those changes. ?Acupuncture. This involves inserting small needles into certain places on your skin to help relieve pain. Eating and drinking Work with a dietitian to develop an eating plan that helps you maintain a healthy body weight. Yourplan may include a balance of: ?Fresh fruits and vegetables. ?Whole grains. ?Lean meats. ?Low-fat dairy. ?Healthy fats, such as fish, nuts, avocado, or olive oil. Do not drink alcohol to cope with stress. General instructions Take tprz-dql-qhtauil and prescription medicines only as told by your health care provider. Do not use any products that contain nicotine or tobacco. These products include cigarettes, chewing tobacco, and vaping devices, such as e-cigarettes. If you need help quitting, ask your health careprovider. Keep all follow-up visits. This is important. Where to find more information You can find more information about living with an amputation from: Amputee Coalition: www.amputee-coalition.org Amputee Support Groups: amputee.supportgroups.com National Center on Health, Physical Activity and Disability: www.nchpad.org Move United: moveunitedsport.org Contact a health care provider if: Your pain does not improve with medicine or treatment. You have trouble managing your emotions about losing an extremity. Get help right away if: You have severe pain. You have thoughts of harming yourself or others. If you ever feel like you may hurt yourself or others, or have thoughts about taking your own life,get help right away. Go to your nearest emergency department or: Call your local emergency services (879 in the [place] Call a suicide crisis helpline, such as the National Suicide Prevention Lifeline at or 368 in the [place] This is open 24 hours a day in the [place] Text the Crisis Text Line at 643095 (in the [place] Summary It will take time for you to heal and get used to living with an amputation. Look for a local or online support group for people living with an amputation. Work with your health care provider to manage any phantom limb pain. This information is not intended to replace advice given to you by your health care provider. Make sure you discuss any questions you have with your health care provider. Document Revised: 12/15/2021 Document Reviewed: 10/07/2021 [employer] Patient Education 2023 [employer] Follow Up Care 02/09/2024 10:35:38 With:TERESA LYNCH DO, FAM Address: [address] [place] [id number]- When: Unknown With:Mike Montes MD Address: [address] [place] [id number]- When:2 weeks Comments:Call for followup appointment [facility] 09-18-2024 NoteDischarge Summary Admission and Discharge Information Admit Date/Time:02/12/2024 16:06 Admitting Physician - Mike Montes MD Consulting Physician - Mike Montes MD Referring Physician - Mike Montes MD Admitting Diagnoses: Discharge Order Date [...] SubCutaneous, qWeek Follow-up With When Contact Information TERESA LYNCH DO, [facility] [address] [place] [address]- Additional Instructions: Simon HERRERA, [facility] Within 2 weeks [address] [place] [address]- Additional Instructions: Call for followup appointment Patient Education Living With an AmputationLima Memorial HospitalComment on above:Result Comment: Electronically Signed By: Vanessa Gilliland DO\.br\Date and Time Signed: 02/21/24 15:01 [id number] Evaluation + Plan noteExtracted from: Title:Discharge Note Author:Vanessa Gilliland DO Date:02/21/24 Discharge To, Anticipated II - Acute Rehabilitation Discharged to - Home independently Prescriptions oxyCODONE 5 mg Tab, 10 mg= [...] mL subcutaneous solution, 0.75 mg, SubCutaneous, qWeek With When Contact Information TERESA LYNCH DO, FAM [address] [place] [address]- Additional Instructions: Simon HERRERA, Mike Weathers Within 2 weeks [address] [place] [address]- Additional Instructions: Call for followup appointment Living With an Amputation Extracted from: Title:APSO Note Author:Vanessa Gilliland DO Ankur e:02/21/24 Patient is a 58-year-old mal e with past medical history of ID/CAD, heart failure, GERD, HTN, COPD, insulin-dependent type 2 diabetes, PAD, and nonhealing right foot diabetic wound with osteomyelitis and multiple surgeries who recently underwent a right BKA. He is postop day #9 today. Pending pre-certification and can discharge when pre-CERT comes through 1. Hx of right BKA (Z89.511: Acquired absence of right leg below knee) Postop day #9 Vascular surgery following Pain control: Acetaminophen 975 mg p.o. every 6 hours, pregabalin 200 mg p.o. 3 times daily, oxycodone 10 mg p.o. every 4 hours as needed. Ropinirole. Bowel regimen senna twice daily, MiraLAX Tenzin twice daily to aid in wound healing [facility] Fwd 25 Minutes [id number] 2. Leukocytosis (D72.829: Elevated white blood cell count, unspecified) Likely reactive with nausea and vomiting improved 3. Essential hypertension (I10: Essential (primary) hypertension) Metoprolol, isosorbide mononitrate, Lasix. Well-controlled. 4. Hyperlipidemia [...] artery disease (I25.10: Atherosclerotic heart disease of [place] coronary artery without angina pectoris) Aspirin, atorvastatin 80 mg p.o. daily, Plavix Metoprolol, isosorbide mononitrate, Lasix 9. Tobacco abuse (Z72.0: Tobacco use) Counseled on cessation. Nicotine patch. 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 He is postop day #8 today. Pending pre-certification and can discharge when pre-CERT comes through 1. Hx of right BKA (Z89.511: Acquired absence of right leg below knee) Postop day #8 Vascular surgery following Pain control: Acetaminophen 975 mg p.o. every 6 hours, pregabalin 200 mg p.o. 3 times daily, oxycodone 10 mg p.o. every 4 hours as needed. Ropinirole. Bowel regimen senna twice daily, MiraLAX Tenzin twice daily to aid in wound healing Ordered: Basic Metabolic Panel Basic Metabolic Panel CBC w/ Auto Diff CBC w/ Auto Diff eGFR Sbsq Hospital Care/Day Moderate 35 Minutes 62739 2. Leukocytosis (D72.829: Elevated white blood cell count, unspecified) Likely reactive with nausea and vomiting overnight. Will continue to monitor closely. No signs of infection of surgical wound. Follow-up a.m. labs. 3. Essential hypertension (I10: Essential (primary) hypertension) Metoprolol, isosorbide mononitrate, Lasix. Well-controlled. Ordered: [facility] Hospital Care/Day Moderate 35 Minutes 98691 4. Hyperlipidemia (E78.5: Hyperlipidemia, unspecified) Statin Ordered: [facility] Hospital Care/Day Moderate 35 Minutes 83667 5. Anemia (D64.9: Anemia, unspecified) Acute on chronic. Stable postoperatively. Will continue to monitor closely Ordered: Basic Metabolic Panel CBC w/ Auto Diff [facility] Hospital Care/Day Moderate 35 Minutes 79984 6. 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 (E11.42: Type 2 diabetes mellitus with diabetic polyneuropathy) Glimepiride 2 mg p.o. twice daily, glargine 35 units nightly, lispro 5 units with meals, BGT ACHS, sliding scale insulin as needed with meals Poorly controlled. Increased glargine to 35 units nightly om 02/18 from 30 units nightly. Ordered: [facility] Care/Day Moderate 35 Minutes 78610 7. Stage 3 chronic kidney disease (N18.30: Chronic kidney disease, stage 3 unspecified) Creatinine 1.8. Baseline 1.5-1.6. Monitor closely. Ordered: Basic Metabolic Panel CBC w/ Auto Diff eGFR [facility] Hospital Care/Day Moderate 35 Minutes 24604 8. Coronary artery disease (I25.10: Atherosclerotic heart disease of [place] coronary artery without angina pectoris) Aspirin, atorvastatin 80 mg p.o. daily, Plavix Metoprolol, isosorbide mononitrate, Lasix Ordered: [facility] Hospital Care/Day Moderate 35 Minutes 94380 9. Tobacco abuse (Z72.0: Tobacco use) Counseled on cessation. Nicotine patch. 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 He is postop day #7 today. Pending precertification and can discharge when pre-CERT comes there. 1. Hx of right BKA (Z89.511: Acquired absence of right leg below knee) Postop day #7 Vascular surgery following Pain control: Acetaminophen 975 mg p.o. every 6 hours, pregabalin 200 mg p.o. 3 times daily, oxycodone 5 mg p.o. every 4 hours as needed. Ropinirole. Bowel regimen senna twice daily, MiraLAX Tenzin twice daily to aid in wound healing Ordered: Basic Metabolic Panel CBC w/ Auto Diff [facility] Hospital Care/Day Moderate 35 Minutes 44314 2. Essential hypertension (I10: Essential (primary) hypertension) Metoprolol, isosorbide mononitrate, Lasix. Well-controlled. Ordered: [facility] Hospital Care/Day Moderate 35 Minutes 20687 3. Hyperlipidemia (E78.5: Hyperlipidemia, unspecified) Statin Ordered: [facility] Hospital Care/Day Moderate 35 Minutes 52510 4. Anemia (D64.9: Anemia, unspecified) Acute on chronic. Stable postoperatively. Will continue to monitor closely Ordered: CBC w/ Auto Diff [facility] Hospital Care/Day Moderate 35 Minutes 01899 5. 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 (E11.42: Type 2 diabetes mellitus with diabetic polyneuropathy) Glimepiride 2 mg p.o. twice daily, glargine 30 units nightly, lispro 5 units with meals, BGT ACHS, sliding scale insulin as needed with meals Poorly controlled. Will increase glargine to 35 units nightly. Ordered: [facility] Hospital Care/Day Moderate 35 Minutes 01082 6. Stage 3 chronic kidney disease (N18.30: Chronic kidney disease, stage 3 unspecified) Creatinine 1.7. Baseline 1.5-1.6. Monitor closely. Ordered: Basic Metabolic Panel [facility] Hospital Care/Day Moderate 35 Minutes 23438 7. Coronary artery disease (I25.10: Atherosclerotic heart disease of [place] coronary artery without angina pectoris) Aspirin, atorvastatin 80 mg p.o. daily, Plavix Metoprolol, isosorbide mononitrate, Lasix 8. Tobacco abuse (Z72.0: Tobacco use) Counseled on cessation. Nicotine patch. Orders: acetaminophen, 975 mg = 3 tab(s), Tab, Oral, q6hr, Routine, Start date 02/19/24 18:00:00 EDT insulin glargine, 35 unit(s) = 0.35 mL, Injection-Insulin, SubCutaneous, Bedtime, Routine, Start date 02/19/24 21:00:00 EDT oxycodone, 5 mg = 1 tab(s), Tab, Oral, q4hr PRN Pain for 5 day(s), Stop date 02/24/24 16:49:00 EDT, Routine, Start date 02/19/24 16:50:00 EDT, 02/19/24 16:50:00 EDT DVT prophylaxis with heparin fifth 1000 units subcutaneously every 8 hours, regular diet, full code Extracted from: Title:APSO Note Author:Elan Antonio MD ate:02/18/24 Goal: 1. monitor BP 2. Monitor Hgb [...] artery disease (I25.10: Atherosclerotic heart disease of [place] coronary artery without angina pectoris) continue plavix as ordered 8. Tobacco abuse (Z72.0: Tobacco use) nicotine patch Orders: insulin lispro, 5 unit(s) = 0.05 mL, Injection-Insulin, SubCutaneous, TIDWM, Routine, Start date 02/18/24 12:00:00 EDT Basic Metabolic Panel CBC w/ Auto Diff Extracted from: Title:APSO Note Author:Elan Antonio MD ate:02/17/24 Goal: 1. Aggressive bowel regimen as ordered 2. Monitor hgb 3. Monitor BGL, better controlled but still elevated. DVT prophylaxis with heparin if tolerated. 1. Hx of right BKA (Z89.511: Acquired absence of right leg below knee) Pain control PT/OT discharge to rehab Ordered: [facility] Hospital Care/Day High 50 Minutes 14435 [facility] Hospital Care/Day Moderate 35 Minutes 59748 2. Essential hypertension (I10: Essential (primary) hypertension) good control continue to hold losartan continue lasix and imdur monitor BP Ordered: [facility] Hospital Care/Day High 50 Minutes 10791 [facility] Care/Day Moderate 35 Minutes 43118 3. Hyperlipidemia (E78.5: Hyperlipidemia, unspecified) continue statin Ordered: [facility] Care/Day High 50 Minutes 12932 [facility] Care/Day Moderate 35 Minutes 24440 4. Anemia (D64.9: Anemia, unspecified) Acute Blood loss anemia, possibly post surgical loss hgb has remained stable post transfusion continue to monitor CBC today Ordered: [facility] Care/Day High 50 Minutes 26723 [facility] Care/Day Moderate 35 Minutes 36421 5. 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 (E11.42: Type 2 diabetes mellitus with diabetic polyneuropathy) BGL is better controlled today compared to yesterday continue current insulin dose with sliding scale If BGl continues to be elevated during the day today, will start meal time scheduled coverage Ordered: [facility] Care/Day High 50 Minutes 23398 [facility] Care/Day Moderate 35 Minutes 13831 6. Stage 3 chronic kidney disease (N18.30: Chronic kidney disease, stage 3 unspecified) Overall renal function is stable continue to monitor Ordered: [facility] Care/Day High 50 Minutes 38615 [facility] Care/Day Moderate 35 Minutes 40131 7. Coronary artery disease (I25.10: Atherosclerotic heart disease of [place] coronary artery without angina pectoris) On home medication/ continue plavix and statin Ordered: [facility] Care/Day High 50 Minutes 03717 [facility] Care/Day Moderate 35 Minutes 40887 8. Tobacco abuse (Z72.0: Tobacco use) nicotine patch Ordered: [facility] Care/Day High 50 Minutes 01288 [facility] Care/Day Moderate 35 Minutes 71811 Orders: acetaminophen-oxycodone, 2 tab(s), Tab, Oral, [id number], Routine, Start date 02/16/24 14:00:00 EDT heparin, [...] Basic Metabolic Panel CBC w/ Auto Diff Extracted from: Title:APSO Note Author:Marisela HERRERA, Elan Hooker ate:02/16/24 Goals: 1. 2 time dose of lactulose [...] CBC w/ Auto Diff eGFR Path. Review [facility] High 50 Minutes 35637 [facility] Care/Day High 50 Minutes 09553 2. Essential hypertension (I10: Essential (primary) hypertension) had to held lasix this morning due to low BP continue other home meds, Imdur, Ordered: Basic Metabolic Panel CBC w/ Auto Diff eGFR Path. Review [facility]/Day High 50 Minutes 06236 [facility] Care/Day High 50 Minutes 51606 3. Hyperlipidemia (E78.5: Hyperlipidemia, unspecified) continue statin Ordered: Basic Metabolic Panel CBC w/ Auto Diff eGFR Path. Review [facility]/Day High 50 Minutes 05502 [facility] Care/Day High 50 Minutes 35407 4. Anemia (D64.9: Anemia, unspecified) hgb is stable post transfusion at 7.6 since patient is stable, will start heparin prophylaxis Ordered: Basic Metabolic Panel CBC w/ Auto Diff eGFR Path. Review [facility] Hospital Care/Day High 50 Minutes 91895 [facility] Care/Day High 50 Minutes 18192 5. 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 Review [facility] Care/Day High 50 Minutes 98171 [facility] Care/Day High 50 Minutes 14974 6. Stage 3 chronic kidney disease (N18.30: Chronic kidney disease, stage 3 unspecified) stable continue to monitor Ordered: Basic Metabolic Panel CBC w/ Auto Diff eGFR Path. Review [facility] Care/Day High 50 Minutes 69297 [facility] Care/Day High 50 Minutes 41714 7. Coronary artery disease (I25.10: Atherosclerotic heart disease of [place] coronary artery without angina pectoris) overall stable continue plavix Ordered: Basic Metabolic Panel CBC w/ Auto Diff eGFR Path. Review [facility] Care/Day High 50 Minutes 15834 [facility] Care/Day High 50 Minutes 37999 8. Tobacco abuse (Z72.0: Tobacco use) nicotine patch Ordered: Basic Metabolic Panel CBC w/ Auto Diff eGFR Path. Review [facility] Care/Day High 50 Minutes 78571 [facility] Care/Day High 50 Minutes 19610 Orders: acetaminophen-oxycodone, 2 tab(s), Tab, Oral, [id number], Routine, Start date 02/16/24 14:00:00 EDT heparin, [...] 15:00:00 EDT, Start date 02/15/24 15:00:00 EDT Extracted from: Title:APSO Note Author:Marisela HERRERA, Elan Hooker ate:02/15/24 Goal: 1. BGL control 2. Wound team or vascular to come look at stump 3. Pain control. will start spacing out frequency of dilaudid 1. Hx of right BKA (Z89.511: Acquired absence of right leg below knee) pain control PT/OT wound care team or vascular to reevaluate stump/dressing Ordered: Basic Metabolic Panel CBC w/ Auto Diff [facility] Hospital Care/Day High 50 Minutes 07235 2. Essential hypertension (I10: Essential (primary) hypertension) good control continue current medications Ordered: Basic Metabolic Panel CBC w/ Auto Diff [facility] Hospital Care/Day High 50 Minutes 35235 3. Hyperlipidemia (E78.5: Hyperlipidemia, unspecified) statin Ordered: Basic Metabolic Panel CBC w/ Auto Diff [facility] Hospital Care/Day High 50 Minutes 09803 4. Anemia (D64.9: Anemia, unspecified) hgb has remained stable since transfusion hgb is 7.7. i thought it should be higher than than considering that he received 2 units of PRBC. Ordered: Basic Metabolic Panel CBC w/ Auto Diff [facility] Hospital Care/Day High 50 Minutes 76681 5. 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 (E11.42: Type 2 diabetes mellitus with diabetic polyneuropathy) BGL is poorly controlled diabetic diet increase lantus to 25 units QHS accucheck achs Ordered: Basic Metabolic Panel CBC w/ Auto Diff [facility] Hospital Care/Day High 50 Minutes 20288 6. Stage 3 chronic kidney disease (N18.30: Chronic kidney disease, stage 3 unspecified) overall stable, but noted mild increase in creatinine today contiue to monitor Ordered: Basic Metabolic Panel CBC w/ Auto Diff [facility] Hospital Care/Day High 50 Minutes 19174 7. Coronary artery disease (I25.10: Atherosclerotic heart disease of [place] coronary artery without angina pectoris) Plavix for secondary prophylaxis Ordered: Basic Metabolic Panel CBC w/ Auto Diff [facility] Hospital Care/Day High 50 Minutes 67141 8. Tobacco abuse (Z72.0: Tobacco use) nicotine patch Ordered: Basic Metabolic Panel CBC w/ Auto Diff [facility] Hospital Care/Day High 50 Minutes 54935 Orders: insulin glargine, 25 unit(s), Injection-Insulin, SubCutaneous, [...] a Plan of Care and Implement Plan Extracted from: Title:APSO Note Author:Elan Antonio MD ate:02/14/24 1. 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 due to poor pain control, I discontinued IV morphine and switched to IV dilaudid PT/OT appreciate Vascular team recommendations Ordered: [facility] Hospital Care/Day High 50 Minutes 73400 2. Essential hypertension (I10: Essential (primary) hypertension) Better compared to yesterday. continue current management currently on lasix, losartan, metoprolol and imdur. seems to be too much BP meds since BP is about 120s. continue to monitor BP. Ordered: [facility] Hospital Care/Day High 50 Minutes 31938 3. Hyperlipidemia (E78.5: Hyperlipidemia, unspecified) continue statin Ordered: [facility] Hospital Care/Day High 50 Minutes 73180 4. Anemia (D64.9: Anemia, unspecified) Acute on chronic anemia due to surgical intervention hgb has remained stable since transfusion continue to monitor h and h Ordered: [facility] Hospital Care/Day High 50 Minutes 78512 5. 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 continue lantus at current dose continue Jardiance and Glimipiride Ordered: [facility] Care/Day High 50 Minutes 38969 6. Stage 3 chronic kidney disease (N18.30: Chronic kidney disease, stage 3 unspecified) possible due to complication of DM. monitor renal function. creatinine at baseline of 1.9. needs out patient follow up for Nephro recommendation 7. Coronary artery disease (I25.10: Atherosclerotic heart disease of [place] coronary artery without angina pectoris) continue plavix and asa as ordered Orders: acetaminophen-oxycodone, 1 tab(s), Tab, Oral, [id number], Routine, Start date 02/13/24 13:00:00 EDT furosemide, 40 mg = 4 mL, Injection, IV Push, Once, Stop date 02/13/24 11:00:00 EDT, Routine, Start date 02/13/24 11:00:00 EDT, Please give after 1st unit transfusion HYDROmorphone, 1 mg = 1 mL, Injection, IV Push, q4hr PRN Pain, Routine, Start date 02/14/24 9:37:00 EDT, 02/14/24 9:37:00 EDT magnesium sulfate + Generic [...] and Implement Plan Referral to Resource Center Extracted from: Title:APSO Note Author:Elan Antonio MD ate:02/13/24 1. 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 appreciate additional recommendation from Vascular team Ordered: [facility] Hospital Care/Day High 75 Minutes 59459 2. Essential hypertension (I10: Essential (primary) hypertension) BP on the low side today unsure if this is related to ?Anemia hold Losartan monitor BP, if still low, will bolus. Ordered: [facility] Hospital Care/Day High 75 Minutes 33702 3. Hyperlipidemia (E78.5: Hyperlipidemia, unspecified) statin Ordered: Initial Hospital Care/Day High 75 Minutes 93775 4. Anemia (D64.9: Anemia, unspecified) Acute on chronic anemia. acute loss due to post op blood loss transfused 2 units of PRBC today. continue to monitor will hold asa and plavix for now and resume when Anemia improves or stabilized Also hold off on anticoagulation until anemia stabilizes can do scd on left leg Ordered: [facility] Hospital Care/Day High 75 Minutes 36190 5. 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 (E11.42: Type 2 diabetes mellitus with diabetic polyneuropathy) poorly controlled diabetic diet continue glimipiride, lantus and januvia Monitor BGL and treate with sliding scale as needed Ordered: [facility] Hospital Care/Day High 75 Minutes 08378 Orders: acetaminophen-oxycodone, 1 tab(s), Tab, Oral, [id number], Routine, Start date 02/13/24 13:00:00 EDT amitriptyline, [...] date 02/13/24 9:00:00 EDT, 02/12/24 18:00:00 EDT furosemide, 40 mg = 4 mL, Injection, IV Push, Once, Stop date 02/13/24 11:00:00 EDT, Routine, Start date 02/13/24 11:00:00 EDT, Please give after 1st [...] a Plan of Care and Implement Plan Extracted from: Title:Admission H & P Author:Neil Antonio MD Date:02/12/24 1. Hx of right BKA (Z89.511: Acquired [...] date 02/12/24 21:00:00 EDT, 02/12/24 17:59:00 EDT amlodipine, 5 mg = 1 tab(s), Tab, Oral, Daily, Routine, Start date 02/13/24 9:00:00 EDT, 02/12/24 18:00:00 EDT atorvastatin, 80 mg = 2 tab(s), Tab, Oral, Daily, Routine, Start date 02/13/24 9:00:00 EDT, 02/12/24 18:00:00 EDT clopidogrel, 75 mg = 1 tab(s), Tab, Oral, Daily, Routine, Start date 02/13/24 9:00:00 EDT, 02/12/24 18:00:00 EDT famotidine, 40 mg = 2 tab(s), Tab, Oral, Once a day (at bedtime), Routine, Start date 02/12/24 21:00:00 EDT, 02/12/24 18:01:00 EDT glimepiride, 2 mg = 1 tab(s), Tab, [...] QIDACHS, Routine, Start date 02/12/24 21:00:00 EDT isosorbide mononitrate, 60 mg = 1 tab(s), Tab-ER, Oral, Daily, Routine, Start date 02/13/24 9:00:00 EDT, 02/12/24 18:01:00 EDT losartan, 100 mg = 2 tab(s), Tab, Oral, Daily, Routine, Start date 02/13/24 9:00:00 EDT, 02/12/24 18:01:00 EDT metoprolol, 100 mg = 1 tab(s), Tab, Oral, Daily, Routine, Start date 02/13/24 9:00:00 EDT, 02/12/24 18:02:00 EDT ranolazine, 1,000 mg = 2 tab(s), Tab-ER, Oral, BID, Routine, Start date 02/12/24 21:00:00 EDT, 02/12/24 18:02:00 EDT sitagliptin, 100 mg = 1 tab(s), Tab, Oral, Daily, Routine, Start date 02/13/24 9:00:00 EDT, 02/12/24 18:02:00 EDT tamsulosin, 0.4 mg = 1 cap(s), Cap, Oral, BID, Routine, Start date 02/12/24 21:00:00 EDT, 02/12/24 18:02:00 EDT ABO/Rh ABO/Rh History Check Antibody Screen Basic Metabolic Panel Blood Bank ID# CBC w/ Auto Diff Diabetic/Calorie Control Diet Hypoglycemia Protocol Responsive Patient Hypoglycemia Protocol Unresponsive Patient Extracted from: Title:ANES Post Op - General Author:MD Solomon Ahmad F Date:02/12/24 Plan Transfer/Discharge: Transfer/Discharge Discharge when meets criteria ( To home ). Extracted from: Title:ANES Pre Op - Adult General Author:Zachary morrow MD, Ahmad F Date:02/12/24 Plan [place] [employer] (ASA) physical status classification: Class IV. Anesthetic Preoperative Plan Anesthesia: General. . Anesthetic plan, risks, benefits, and alternatives discussed with the patient and/or family. Risks discussed: nausea, vomiting, headache, sore throat, dental injury, serious complications. Patient verbalized understanding. Communication: face to face with patient 5 minutes. Diagnostic Tests Pending * CBC w/ Auto Diff 02/22/24 Future Scheduled Tests Radiology* US PVR Lower EXT Complete Bilat 11/20/23 [facility] 09-18-2024 NotePeripheral smear evaluation:[facility] HospitalComment on above:Performed By: #### [id number] #### [facility] [address] [place], [place] [phone] NoteProgress Note-Physician Assessment/Plan Patient is a 58-year-old male with past medical history of ID/CAD, heart failure, GERD, HTN, COPD, insulin-dependent type [...] daily to aid in wound healing Ordered: [facility] Care/Day Straight Fwd 25 Minutes 05770 2. Leukocytosis (D72.829: Elevated white blood cell [...] artery disease (I25.10: Atherosclerotic heart disease of [place] coronary artery withoutangina pectoris) ? Aspirin, atorvastatin [...] Lymph Auto: 12.4 % Low (02/21/24 06:02:00) Sanders Auto: 8.7 % (02/21/24 06:02:00) Eos Auto: 3.6 % (02/21/24 06:02:00) Basophil Auto: 0.7 % (02/21/24 06:02:00) Neutro Absolute: 9.3 E9/L High (02/21/24 06:02:00) Lymph Absolute: 1.5 E9/L (02/21/24 06:02:00) Sanders Absolute: 1.1 E9/L High (02/21/24 06:02:00) Eos [...] High (02/21/24 10:49: (more content not included)... [facility] HospitalComment on above:Result Comment: Electronically Signed By: Vanessa Gilliland DO\.br\Date and Time Signed: 02/21/24 10:56 EDT 02-20-2024 NoteProgress Note-Physician Assessment/Plan Patient is a 58-year-old male with past medical history of ID/CAD, heart failure, GERD, HTN, COPD, insulin-dependent type [...] Auto Diff CBC w/ Auto Diff e[facility]/Day Moderate 35 Minutes 78606 2. Leukocytosis (D72.829: Elevated white blood cell count, unspecified) ? Likely reactive with nausea and vomiting overnight. Will continue to monitor closely. No signs ofinfection of surgical wound. Follow-up a.m. labs. 3. Essential hypertension (I10: Essential (primary) hypertension) ? Metoprolol, isosorbide mononitrate, Lasix. Well-controlled. Ordered: [facility] Care/Day Moderate 35 Minutes 26245 4. Hyperlipidemia (E78.5: Hyperlipidemia, unspecified) ? Statin Ordered: [facility] Care/Day Moderate 35 Minutes 91396 5. Anemia (D64.9: Anemia, unspecified) ? Acute on chronic. Stable postoperatively. Will continue to monitor closely Ordered: Basic Metabolic Panel CBC w/ Auto Diff [facility] Care/Day Moderate 35 Minutes 45987 6. 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 Glimepiride 2 mg p.o. twice daily, glargine 35 units nightly, lispro 5 units with meals, BGT ACHS, sliding scale insulin as needed with meals ?Poorly controlled. Increased glargine to 35 units nightly om 02/18 from 30 units nightly. Ordered: [facility] Care/Day Moderate 35 Minutes 85829 7. Stage 3 chronic kidney disease (N18.30: Chronic kidney disease, stage 3 unspecified) ? Creatinine 1.8. Baseline 1.5-1.6. Monitor closely. Ordered: Basic Metabolic Panel CBC w/ Auto Diff eGFR [facility] Care/Day Moderate 35 Minutes 91196 8. Coronary artery disease (I25.10: Atherosclerotic heart disease of [place] coronary artery withoutangina pectoris) ? Aspirin, atorvastatin 80 mg p.o. daily, Plavix ? Metoprolol, isosorbide mononitrate, Lasix Ordered: [facility] Care/Day Moderate 35 Minutes 22770 9. Tobacco abuse (Z72.0: Tobacco use) ? [...] the indicated time period. (more content not included)...[facility] HospitalComment on above:Result Comment: Electronically Signed By: Ben Corrigan III, DO.nile\Date and Time Signed: 02/20/24 19:09 [id number] NoteProgress Note-Physician Assessment/Plan Patient is a 58-year-old male with past medical history of ID/CAD, heart failure, GERD, HTN, COPD, insulin-dependent type [...] Basic Metabolic Panel CBC w/ Auto Diff [facility] Care/Day Moderate 35 Minutes 18309 2. Essential hypertension (I10: Essential (primary) hypertension) ? Metoprolol, isosorbide mononitrate, Lasix. Well-controlled. Ordered: [facility] Care/Day Moderate 35 Minutes 66680 3. Hyperlipidemia (E78.5: Hyperlipidemia, unspecified) ? Statin Ordered: [facility] Care/Day Moderate 35 Minutes 47694 4. Anemia (D64.9: Anemia, unspecified) ? Acute on chronic. Stable postoperatively. Will continue to monitor closely Ordered: CBC w/ Auto Diff [facility] Care/Day Moderate 35 Minutes 12107 5. 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 Glimepiride 2 mg p.o. twice daily, glargine 30 units nightly, lispro 5 units with meals, BGT ACHS, sliding scale insulin as needed with meals ?Poorly controlled. Will increase glargine to 35 units nightly. Ordered: [facility] Care/Day Moderate 35 Minutes 46322 6. Stage 3 chronic kidney disease (N18.30: Chronic kidney disease, stage 3 unspecified) ? Creatinine 1.7. Baseline 1.5-1.6. Monitor closely. Ordered: Basic Metabolic Panel [facility] Care/Day Moderate 35 Minutes 61800 7. Coronary artery disease (I25.10: Atherosclerotic heart disease of [place] coronary artery withoutangina pectoris) ? Aspirin, atorvastatin [...] Exam General: alert, no (more content not included)...[facility] Comment on above:Result Comment: Electronically Signed By: Ben Corrigan III, DO\.br\Date and Time Signed: 02/19/24 17:00 [id number] NoteProgress Note-Physician Patient: MYRA PICKARD SR Age: 58 years Sex: Male : 1965 Associated Diagnoses: None Author: MD Juanito, Laura Rodriguez Postoperative Information Postoperative disposition: Postoperative disposition: To PACU. Optimetrix number: Optimetrix number [id number]. Anesthetic utilized: General. Health Status Allergies: Allergic [...] Discharge when meets criteria ( To home ).[facility] HospitalComment on above:Result Comment: Electronically Signed By: MD Juanito, Laura Rodriguez\.br\Date and Time Signed: 02/19/24 08:35 EDT 02-19-2024 NoteProgress Note-Physician Patient: MYRA PICKARD SR Age: 58 years Sex: Male : 1965 Associated Diagnoses: None Author: MD Juanito, Laura Rodriguez Preoperative Information Time patient last ate or [...] mg oral tablet: 2 tab(s), Tab, Oral, [id number], Routine, Start date 02/16/24 14:00:00 EDT Plavix [...] cap(s), Oral, B (more content not included)... [facility] HospitalComment on above:Result Comment: Electronically Signed By: MD Juanito, Laura F\.br\Date and Time Signed: 02/19/24 08:33 EDT 02-18-2024 [...] artery disease (I25.10: Atherosclerotic heart disease of [place] coronary artery withoutangina pectoris) continue plavix as [...] mg/dL High (02/18/24 11:32:00) POC Device SN: [id number] (02/18/24 11:32:00) POC User ID: [id number] (02/18/24 11:32:00) POC Username: RAJESH OSEGUERA (02/18/24 11:32:00) Problem List/Past Medical History Ongoing Arthritis Asthma BPH with obstruction/lower urinary tract symptoms COPD type A Fibromyalgia Gross hematuria Head ache Heart attack Heart disease Heart murmur Hyperlipidemia Orchitis Restless leg Smoker Urinary retention Historical CHF (congestive heart failure) GERD [Gastroesophageal reflux disease] HTN [Hypertension] ID (myocardial infarction) NIDDM Medications Inpatient acetaminophen 325 [...] mg-325 mg oral tablet, 2 tab(s), Oral, [id number] Plavix 75 mg Tab, 75 mg= 1 tab(s), Oral, Daily polyethylene glycol 335 (more content not included)...[facility] HospitalComment on above:Result Comment: Electronically Signed By: Marisela HERRERA, Elan Robbins\.br\Date and Time Signed: 02/18/24 13:45 [id number] NoteProgress Note-Physician Assessment/Plan Goal: 1. Aggressive bowel regimen as ordered 2. Monitor hgb 3. Monitor BGL, better controlled but still elevated. DVT prophylaxis with heparin if tolerated. 1. Hx of right BKA (Z89.511: Acquired absence of right leg below knee) Pain control PT/OT discharge to rehab Ordered: [facility] Care/Day High 50 Minutes 13798 [facility] Care/Day Moderate 35 Minutes 43450 2. Essential hypertension (I10: Essential (primary) hypertension) good control continue to hold losartan continue lasix and imdur monitor BP Ordered: [facility] Care/Day High 50 Minutes 85513 [facility] Care/Day Moderate 35 Minutes 00976 3. Hyperlipidemia (E78.5: Hyperlipidemia, unspecified) continue statin Ordered: [facility] Care/Day High 50 Minutes 21259 [facility] Care/Day Moderate 35 Minutes 90545 4. Anemia (D64.9: Anemia, unspecified) Acute Blood loss anemia, possibly post surgical loss hgb has remained stable post transfusion continue to monitor CBC today Ordered: [facility] Care/Day High 50 Minutes 03548 [facility] Care/Day Moderate 35 Minutes 37972 5. 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 Care/Day Moderate 35 Minutes 55527 6. Stage 3 chronic kidney disease (N18.30: Chronic kidney disease, stage 3 unspecified) Overall renal function is stable continue to monitor Ordered: [facility] Care/Day High 50 Minutes 15191 [facility] Care/Day Moderate 35 Minutes 94053 7. Coronary artery disease (I25.10: Atherosclerotic heart disease of [place] coronary artery withoutangina pectoris) On home medication/ continue plavix and statin Ordered: [facility] Care/Day High 50 Minutes 11092 [facility] Care/Day Moderate 35 Minutes 81122 8. Tobacco abuse (Z72.0: Tobacco use) nicotine patch Ordered: [facility] Care/Day High 50 Minutes 39946 [facility] Care/Day Moderate 35 Minutes 91120 Orders: acetaminophen-oxycodone, 2 tab(s), Tab, Oral, [id number], Routine, Start date 02/16/24 14:00:00 EDT heparin, [...] (02/17/24 07:49:00) POC Dev (more content not included)...[facility] HospitalComment on above:Result Comment: Electronically Signed By: Marisela HERRERA, Elan Humphrey.nile\Date and Time Signed: 02/17/24 10:36 [id number] NoteProgress Note-Physician Assessment/Plan Goals: 1. 2 time [...] [facility] Care/Day High 50 Minutes 17028 [facility] Care/Day High 50 Minutes 78979 2. Essential hypertension (I10: Essential (primary) hypertension) had to held lasix this morning due to low BP continue other home meds, Imdur, Ordered: Basic Metabolic Panel CBC w/ Auto Diff eGFR Path. Review [facility] Care/Day High 50 Minutes 07615 [facility] Care/Day High 50 Minutes 51567 3. Hyperlipidemia (E78.5: Hyperlipidemia, unspecified) continue statin Ordered: Basic Metabolic Panel CBC w/ Auto Diff eGFR Path. Review [facility] Care/Day High 50 Minutes 07768 [facility] Care/Day High 50 Minutes 27177 4. Anemia (D64.9: Anemia, unspecified) hgb is stable post transfusion at 7.6 since patient is stable, will start heparin prophylaxis Ordered: Basic Metabolic Panel CBC w/ Auto Diff eGFR Path. [facility] Care/Day High 50 Minutes 00769 [facility] Care/Day High 50 Minutes 50689 5. 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 Review [facility] Care/Day High 50 Minutes 63799 [facility] Care/Day High 50 Minutes 37458 6. Stage 3 chronic kidney disease (N18.30: Chronic kidney disease, stage 3 unspecified) stable continue to monitor Ordered: Basic Metabolic Panel CBC w/ Auto Diff eGFR Path. Review [facility] Care/Day High 50 Minutes 24272 [facility] Care/Day High 50 Minutes 07390 7. Coronary artery disease (I25.10: Atherosclerotic heart disease of [place] coronary artery withoutangina pectoris) overall stable continue plavix Ordered: Basic Metabolic Panel CBC w/ Auto Diff eGFR Path. Review [facility] Care/Day High 50 Minutes 13206 [facility] Care/Day High 50 Minutes 01802 8. Tobacco abuse (Z72.0: Tobacco use) nicotine patch Ordered: Basic Metabolic Panel CBC w/ Auto Diff eGFR Path. 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 - White blood cell and Platelet: Unremarkable. Comment: Recommend clinical correlation and rule out iron deficiency anemia. CPT: 35818 Blair Blood MD 02/21/2024 12:59:29 EDT *NA* (02/16/24 6:12 AM)[facility] Danielle 09-12-2024 NoteProgress Note-Physician Assessment/Plan Goal: 1. BGL control [...] Diff [facility] Care/Day High 50 Minutes 53954 2. Essential hypertension (I10: Essential (primary) hypertension) good control continue current medications Ordered: Basic Metabolic Panel CBC w/ Auto Diff [facility] Care/Day High 50 Minutes 35778 3. Hyperlipidemia (E78.5: Hyperlipidemia, unspecified) statin Ordered: Basic Metabolic Panel CBC w/ [facility] Diff [facility] High 50 Minutes 77585 4. Anemia (D64.9: Anemia, unspecified) hgb has remained stable since transfusion hgb is 7.7. i thought it should be higher than than considering that he received 2 units of PRBC. Ordered: Basic Metabolic Panel CBC w/ Auto Diff [facility] High 50 Minutes 90977 5. 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 Stage 3 chronic kidney disease (N18.30: Chronic kidney disease, stage 3 unspecified) overall stable, but noted mild increase in creatinine today contiue to monitor Ordered: Basic Metabolic Panel CBC w/ Auto Diff [facility]/Day High 50 Minutes 54092 7. Coronary artery disease (I25.10: Atherosclerotic heart disease of [place] coronary artery withoutangina pectoris) Plavix for secondary prophylaxis Ordered: Basic Metabolic Panel CBC w/ Auto Diff [facility]/Day High 50 Minutes 67701 8. Tobacco abuse (Z72.0: Tobacco use) nicotine patch Ordered: Basic Metabolic Panel CBC w/ Auto Diff [facility]Day High 50 Minutes 16929 Orders: insulin glargine, 25 unit(s), Injection-Insulin, SubCutaneous, [...] Hct: 22.2 % Low (more content not included)...[facility] HospitalComment on above:Result Comment: Electronically Signed By: Marisela HERRERA, Elan Humphrey.br\Date and Time Signed: 02/15/24 13:28 [id number] NoteInterdisciplinary Note - PT PT Evaluation completed with an AMPAC score of 16/24. Pt was able to perform bed mobility with Mod I and transfers with CGA/Min A. Pt was able to ambulate 4 feet with FWW, but does fatigue easily. Ptdoes report increased pain in right stump, but still maintained activity well. Pt will need furtherrehabilitation SNF in order to return [facility] again [facility] NoteProgress Note-Physician Assessment/Plan 1. 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 due to poor pain control, I discontinued IV morphine and switched to IV dilaudid PT/OT appreciate Vascular team recommendations Ordered: [facility] Care/Day High 50 Minutes 15269 2. Essential hypertension (I10: Essential (primary) hypertension) Better compared to yesterday. continue current management currently on lasix, losartan, metoprolol and imdur. seems to be too much BP meds since BP is about 120s. continue to monitor BP. Ordered: [facility] Care/Day High 50 Minutes 46280 3. Hyperlipidemia (E78.5: Hyperlipidemia, unspecified) continue statin Ordered: [facility] Care/Day High 50 Minutes 84851 4. Anemia (D64.9: Anemia, unspecified) Acute on chronic anemia due to surgical intervention hgb has remained stable since transfusion continue to monitor h and h Ordered: [facility] Care/Day High 50 Minutes 30451 5. 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 continue lantus at current dose continue Jardiance and Glimipiride Ordered: [facility] Care/Day High 50 Minutes 45105 6. Stage 3 chronic kidney disease (N18.30: Chronic kidney disease, stage 3 unspecified) possible due to complication of DM. monitor renal function. creatinine at baseline of 1.9. needs out patient follow up for Nephro recommendation 7. Coronary artery disease (I25.10: Atherosclerotic heart disease of [place] coronary artery withoutangina pectoris) continue plavix and asa as ordered Orders: acetaminophen-oxycodone, 1 tab(s), Tab, Oral, [id number], Routine, Start date 02/13/24 13:00:00 EDT furosemide, [...] Extremities: right BKA Debbie (more content not included)...[facility] HospitalComment on above: Result Comment: Electronically Signed By: Marisela HERRERA, Elan Humphrey.nile\Date and Time Signed: 02/14/24 09:57 [id number] NoteProgress Note-Physician Assessment/Plan 1. 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 appreciate additional recommendation from Vascular team Ordered: [facility] Care/Day High 75 Minutes 02282 2. Essential hypertension (I10: Essential (primary) hypertension) BP on the low side today unsure if this is related to ?Anemia hold Losartan monitor BP, if still low, will bolus. Ordered: [facility] Care/Day High 75 Minutes 75190 3. Hyperlipidemia (E78.5: Hyperlipidemia, unspecified) statin Ordered: [facility] Care/Day High 75 Minutes 66418 4. Anemia (D64.9: Anemia, unspecified) Acute on chronic anemia. acute loss due to post op blood loss transfused 2 units of PRBC today. continue to monitor will hold asa and plavix for now and resume when Anemia improves or stabilized Also hold off on anticoagulation until anemia stabilizes can do scd on left leg Ordered: [facility] Care/Day High 75 Minutes 06450 5. 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 (E11.42: Type 2 diabetes mellitus with diabetic polyneuropathy) poorly controlled diabetic diet continue glimipiride, lantus and januvia Monitor BGL and treate with sliding scale as needed Ordered: [facility] Care/Day High 75 Minutes 68146 Orders: acetaminophen-oxycodone, 1 tab(s), Tab, Oral, [id number], Routine, Start date 02/13/24 13:00:00 EDT amitriptyline, [...] He is now interested in going to [facility] to get PT to enable him be [...] Back: No tenderness, Luzmaria (more content not included)...[facility] HospitalComment on above:Result Comment: Electronically Signed By: Marisela HERRERA, Elan Guzman\Date and Time Signed: 02/13/24 12:25 [id number] NoteHistory and Physical History of Present Illness [...] mg/dL High (02/12/24 17:15:00) POC Device SN: [id number] (02/12/24 17:15:00) POC User ID: [id number] (02/12/24 17:15:00) POC Username: POC Username (02/12/24 [...] a day (at bedti (more content not included)...[facility] HospitalComment on above:Result Comment: Electronically Signed By: Marisela HERRERA, Elan Robbins\ras\Date and Time Signed: 02/12/24 18:34 [id number] Evaluation + Plan note* Assessment & Plan Note - Mike Montes MD - 01/18/2024 9:04 AM EDTAssociated Problem(s): Cigarette smoker Counseled him on smoking cessation at length. He is willing to quit. [facility]08-15-2024 Miscellaneous Notes* Assessment & Plan Note - Mike Montes MD - 01/18/2024 9:04 AM EDTAssociated Problem(s): Cigarette smoker Counseled him on smoking cessation at length. He is willing to quit. 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 Will do it here at [facility]. 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 Will do it here at [facility]. [facility]08-15-2024 History of Present illness Narrative* Mike Montes MD - 01/18/2024 8:50 AM EDT Images from the original note were not included. To: No primary care provider on file. HPI: Myra Pickard is a 58 y.o. male with History of multilevel occlusive disease status post revascularization. He had a TMA done by podiatry. This wound is not healing. There is concerns about osteomyelitis infection control exposed bone. 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 We had a long discussion. Is not unreasonable to proceed with below-knee amputation giventhe high Wi-Fi score.. Review of Systems: Review of Systems Constitutional: Negative. HENT: Negative. Respiratory: Negative. Cardiovascular: Negative. Gastrointestinal: Negative. Endocrine: Negative. Genitourinary: Negative. Musculoskeletal: Negative. Skin: Negative. Neurological: Negative. Hematological: Negative. Medications: Current Outpatient Medications on File Prior to Visit Medication Sig Dispense Refill acetaminophen (TYLENOL EXTRA STRENGTH) 500 mg tablet Take 2 tablets (1,000 mg total) by mouth every8 (eight) hours as needed for pain or fever. albuterol (PROAIR HFA) 90 mcg/actuation inhaler Inhale 2 puffs every 4 (four) hours as needed. albuterol (PROVENTIL HFA;VENTOLIN HFA) 90 mcg/actuation inhaler Inhale 2 puffs in the morning and 2puffs before bedtime. amitriptyline (ELAVIL) 100 mg tablet Take 1 tablet (100 mg total) by mouth nightly. aspirin 81 mg Take 1 tablet (81 mg total) by mouth in the morning. atorvastatin (LIPITOR) 80 mg tablet Take 1 tablet (80 mg total) by mouth in the morning. clopidogreL (PLAVIX) 75 mg tablet Take 1 tablet (75 mg total) by mouth in the morning. dulaglutide 0.75 mg/0.5 mL pen injector Inject 0.5 mL (0.75 mg total) under the skin once a week. DULoxetine (CYMBALTA) 60 mg capsule Take 1 capsule (60 mg total) by mouth in the morning. empagliflozin (JARDIANCE) 10 mg tablet tablet Take 1 tablet (10 mg total) by mouth in the morning. ferrous sulfate 325 (65 FE) mg tablet Take 1 tablet (325 mg total) by mouth in the morning. glimepiride (AMARYL) 2 mg tablet Take 1 tablet (2 mg total) by mouth in the morning and 1 tablet (2mg total) before bedtime. isosorbide mononitrate (IMDUR) 30 mg 24 hr tablet Take 1 tablet (30 mg total) by mouth daily. metFORMIN (GLUCOPHAGE) 1000 mg tablet Take 1 tablet (1,000 mg total) by mouth every 12 (twelve) hours. nitroglycerin (NITROSTAT) 0.[address] 1 tablet (0.4 mg total) under the tongue every 5 (five) minutes as needed for chest pain. omeprazole (PriLOSEC) 40 mg capsule Take 1 capsule (40 mg total) by mouth in the morning. PaletteTOUCH DELICA PLUS LANCET 33 gauge misc Inject 1 strip under the skin in the morning and 1 strip before bedtime. PaletteTOUCH ULTRA TEST strip 1 strip by other route every morning before breakfast. PaletteTOUCH ULTRA2 METER misc 1 Unit by subconjunctival route in the morning. pregabalin (LYRICA) 200 mg capsule Take 1 capsule (200 mg total) by mouth 3 (three) times a day. rOPINIRole (REQUIP) 1 mg tablet Take 1 tablet (1 mg total) by mouth 3 (three) times a day. SITagliptin phosphate (JANUVIA) 100 mg tablet Take 1 tablet (100 mg total) by mouth in the morning. tamsulosin (FLOMAX) 0.4 mg capsule Take 1 capsule (0.4 mg total) by mouth nightly. tiotropium (SPIRIVA WITH HANDIHALER) 18 mcg per inhalation capsule Place 1 capsule (18 mcg total) into inhaler and inhale once daily. tiZANidine (ZANAFLEX) 4 mg capsule Take 1 capsule (4 mg total) by mouth 3 (three) times a day as needed. ubrogepant 100 mg tablet Take 100 mg by mouth daily as needed. AJOVY AUTOINJECTOR 225 mg/1.5 mL Inject 1.5 mL (225 mg total) under the skin every 30 (thirty) days. (Patient not taking: Reported on 11/07/2023) No current facility-administered medications on file prior to visit. Past Medical History: Past Medical History: Diagnosis Date Chronic kidney disease Coronary artery disease 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 ([facility]) Diabetes mellitus type 2, controlled ([facility]) GERD (gastroesophageal reflux disease) Hyperlipidemia Hypertension Past Surgical History: Past Surgical History: Procedure Laterality Date AMPUTATION FOOT / TOE Right 09/29/2023 APPENDECTOMY BYPASS ARTERY FEMORAL POPLITEAL Right 11/08/2023 Performed by Mike Montes MD at [facility] SPECIAL PROC CARDIAC CATHETERIZATION x4 heart stents COLONOSCOPY PROSTATE SURGERY SPINE SURGERY Vascular Invasive Right lower extremity angiogram with intervention/stent Right 11/07/2023 Performed by Mike Montes MD at [facility] CARDIAC CATH LABS Social and Family History: Social History Socioeconomic History Marital status: Spouse name: Not on file Number of children: Not on file Years of education: Not on file Highest education level: Not on file Occupational History Not on file Tobacco Use Smoking status: Every Day Current packs/day: 1.00 Average packs/day: 1 pack/day for 42.3 years (42.3 ttl pk-yrs) Types: Cigarettes Start date: 10/05/1981 Smokeless tobacco: Never Vaping Use Vaping status: Never Used Substance and Sexual Activity Alcohol use: Not Currently Drug use: Never Sexual activity: Defer Other Topics Concern Not on file Social History Narrative Not on file Social Determinants of Health Financial Resource Strain: Not on file Food Insecurity: No Food Insecurity (01/18/2024) Hunger Screening Food Insecurity - Worry: Never True Food Insecurity - Inability: Never True Transportation Needs: No Transportation Needs (11/07/2023) PRAPARE - Transportation Lack of Transportation (Medical): No Lack of Transportation (Non-Medical): No Physical Activity: Not on file Stress: Not on file Social Connections: Not on file Interpersonal Safety: Not At Risk (11/07/2023) Humiliation, Afraid, Rape, and Kick questionnaire Fear of Current or Ex-Partner: No Emotionally Abused: No Physically Abused: No Sexually Abused: No Housing Instability: Low Risk (11/07/2023) Housing Instability Housing Instability: No History reviewed. No pertinent family history. Recent Labs: Recent and relative labs were reviewed and interpreted and contributed to the assessment and plan below. Vitals: BP 108/67 (BP Site: Left Arm, BP Postition: Sitting, BP CUFF SIZE: M (9-13 inches)) Pulse (!) 122 Ht 182.9 cm (6') Wt 93 kg (205 lb) SpO2 100% BMI 27.80 kg/m Body mass index is 27.8 kg/m . Physical Exam: Physical Exam Constitutional: Appearance: Normal appearance. HENT: Head: Normocephalic and atraumatic. Mouth/Throat: Mouth: Mucous membranes are moist. Eyes: Extraocular Movements: Extraocular movements intact. Pupils: Pupils are equal, round, and reactive to light. Cardiovascular: Rate and Rhythm: Normal rate and regular rhythm. Pulmonary: Effort: Pulmonary effort is normal. Breath sounds: Normal breath sounds. Abdominal: General: Abdomen is flat. Bowel sounds are normal. Palpations: Abdomen is soft. Musculoskeletal: General: Normal range of motion. Cervical back: Normal range of motion. Skin: General: Skin is warm and dry. Neurological: General: No focal deficit present. Mental Status: He is alert and oriented to person, place, and time. Mental status is at baseline. Psychiatric: Mood and Affect: Mood normal. Behavior: Behavior normal. Thought Content: Thought content normal. Judgment: Judgment normal. Recent testing: Assessment and Plan: Problem List 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 ([facility]) - Primary Current Assessment & Plan Right below-knee amputation. Will do it here at [place]. Myra was seen today for angioplasty rle follow up - procedure at [facility]. yolanda and critical limb ischemia of right lower extremity with gangre. 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 While intending to generate a timely document that accurately reflects the content of the visit, no guarantee can be provided that every grammatical or spelling mistake has been or will be identified or corrected. Thank you for your understanding. documented in this encounterKerbs Memorial HospitalThe Shared Web08-15-2024 Instructions* Patient Instructions* Mike Montes MD - 01/18/2024 8:50 AM EDT Are You Ready To Kick The Habit? Free Tobacco Cessation Resources [facility] Services [facility] provide all employees with free tobacco cessation services that include: Counseling to understand nicotine addiction Education about medications that can help you successfully quit Assistance with developing a plan to quit Call to set up an individual appointment or find out when group classes will be held: [facility]: [phone] [facility]: [phone] [facility]: [phone] [facility]: [phone] Quit Smoking Action Plan and Resources [facility] offers an eight-week, online smoking cessation plan to all [facility] employees, regardless of whether [facility] is your medical insurance provider. Go to [email or web address] and click the Health Risk Assessment and Resources link to get started. In the Motribe menu, click Action Plans instead of Health Risk Assessment to access the Quit Smoking Action Plan. Additional smoking cessation resources are also available to all [facility] employees on the Msmnu0Kxwjhh web page at [email or web address]. [place] Tobacco Cessation Program If [facility] is your medical insurance provider, there are more free resources available to you, including: No copays or deductibles on local tobacco cessation counseling services to help you quit Prescription assistance for tobacco cessation medications to help you quit For details about the tobacco cessation program available to [facility] members, go to www.[employer] (Search: Tobacco Cessation Program). [place] Tobacco Quit Line 2-914-LNMR-NOW ( ) is a toll-free, telephonic service that helps [place] residents quit smoking and using tobacco. It is staffed by experts who tailor a quit plan for you and provide you with advice. [place] Tobacco Quit Line 3-152-DBQR-NOW ( ) is a toll-free, telephonic service that helps [place] residents quit smoking and using tobacco. It is staffed by experts who tailor a quit plan for you and provide you with advice. Two weeks of nicotine replacement therapy may be provided at no charge, if needed. Additional Resources These national organizations also offer free information and resources to help you quit tobacco: [employer]--www.cancer.org/healthy/stayawayfromtobacco [place] Heart Association--www.heart.org (Search: Quit Smoking) Centers for Disease Control and Prevention--www.cdc.gov/tobacco [place] Lung Association--www.lungusa.org documented in this encounterKerbs Memorial HospitalGetSnippy [id number] NotePatient Education - Text [place], [place] Cardiovascular PCI DISCHARGE INSTRUCTIONS Diet: ? [...] for any reason without talking to your drug regulatory affairs specialist Site Care: ? Do not remove dressing [...] you are interested in smoking cessation, contact [facility] at [phone], ext. [phone]. ? In the event you are unable to reach your physician, please call [facility] at [phone] andthe fire engine operator will assist you. Seek Medicare Care [...] your urine or stool ? 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 He has some residual tibial occlusive disease. I discussed with him doing right lower extremity angiogram and intervention. Will do this close to home at [facility]. 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 He has some residual tibial occlusive disease. I discussed with him doing right lower extremity angiogram and intervention. Will do this close to home at [facility]. documented in this encounterWexner Medical Center07-18-2024 History of Present illness Narrative* Mike Montes MD - 12/21/2023 8:40 AM EDT Images from the original note were not included. To: No primary care provider on file. HPI: Myra Pickard is a 58 y.o. male with History of right lower extremity critical limb ischemia statuspost right iliofemoral endarterectomy and femoral above-knee bypass. The wound is better however itdid not heal completely. I talked him about doing tibial intervention.. His noninvasive testing shows significant improvement in his blood flow after the femoral revascularization. He has some residual tibial disease however. Review of Systems: Review of Systems Constitutional: Negative. HENT: Negative. Respiratory: Negative. Cardiovascular: Negative. Gastrointestinal: Negative. Endocrine: Negative. Genitourinary: Negative. Musculoskeletal: Negative. Skin: Negative. Neurological: Negative. Hematological: Negative. Medications: Current Outpatient Medications on File Prior to Visit Medication Sig Dispense Refill acetaminophen (TYLENOL EXTRA STRENGTH) 500 mg tablet Take 2 tablets (1,000 mg total) by mouth every8 (eight) hours as needed for pain or fever. AJOVY AUTOINJECTOR 225 mg/1.5 mL Inject 1.5 mL (225 mg total) under the skin every 30 (thirty) days. (Patient not taking: Reported on 11/07/2023) albuterol (PROAIR HFA) 90 mcg/actuation inhaler Inhale 2 puffs every 4 (four) hours as needed. albuterol (PROVENTIL HFA;VENTOLIN HFA) 90 mcg/actuation inhaler Inhale 2 puffs in the morning and 2puffs before bedtime. amitriptyline (ELAVIL) 100 mg tablet Take 1 tablet (100 mg total) by mouth nightly. aspirin 81 mg Take 1 tablet (81 mg total) by mouth in the morning. atorvastatin (LIPITOR) 80 mg tablet Take 1 tablet (80 mg total) by mouth in the morning. clopidogreL (PLAVIX) 75 mg tablet Take 1 tablet (75 mg total) by mouth in the morning. dulaglutide 0.75 mg/0.5 mL pen injector Inject 0.5 mL (0.75 mg total) under the skin once a week. DULoxetine (CYMBALTA) 60 mg capsule Take 1 capsule (60 mg total) by mouth in the morning. empagliflozin (JARDIANCE) 10 mg tablet tablet Take 1 tablet (10 mg total) by mouth in the morning. ferrous sulfate 325 (65 FE) mg tablet Take 1 tablet (325 mg total) by mouth in the morning. glimepiride (AMARYL) 2 mg tablet Take 1 tablet (2 mg total) by mouth in the morning and 1 tablet (2mg total) before bedtime. isosorbide mononitrate (IMDUR) 30 mg 24 hr tablet Take 1 tablet (30 mg total) by mouth daily. metFORMIN (GLUCOPHAGE) 1000 mg tablet Take 1 tablet (1,000 mg total) by mouth every 12 (twelve) hours. nitroglycerin (NITROSTAT) 0.[address] 1 tablet (0.4 mg total) under the tongue every 5 (five) minutes as needed for chest pain. omeprazole (PriLOSEC) 40 mg capsule Take 1 capsule (40 mg total) by mouth in the morning. ONETOUCH DELICA PLUS LANCET 33 gauge misc Inject 1 strip under the skin in the morning and 1 strip before bedtime. ONETOUCH ULTRA TEST strip 1 strip by other route every morning before breakfast. ONETOUCH ULTRA2 METER misc 1 Unit by subconjunctival route in the morning. pregabalin (LYRICA) 200 mg capsule Take 1 capsule (200 mg total) by mouth 3 (three) times a day. rOPINIRole (REQUIP) 1 mg tablet Take 1 tablet (1 mg total) by mouth 3 (three) times a day. SITagliptin phosphate (JANUVIA) 100 mg tablet Take 1 tablet (100 mg total) by mouth in the morning. tamsulosin (FLOMAX) 0.4 mg capsule Take 1 capsule (0.4 mg total) by mouth nightly. tiotropium (SPIRIVA WITH HANDIHALER) 18 mcg per inhalation capsule Place 1 capsule (18 mcg total) into inhaler and inhale once daily. tiZANidine (ZANAFLEX) 4 mg capsule Take 1 capsule (4 mg total) by mouth 3 (three) times a day as needed. ubrogepant 100 mg tablet Take 100 mg by mouth daily as needed. No current facility-administered medications on file prior to visit. Past Medical History: Past Medical History: Diagnosis Date Chronic kidney disease Coronary artery disease 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 ([facility]) Diabetes mellitus type 2, controlled ([facility] GERD (gastroesophageal reflux disease) Hyperlipidemia Hypertension Past Surgical History: Past Surgical History: Procedure Laterality Date AMPUTATION FOOT / TOE Right 09/29/2023 APPENDECTOMY BYPASS ARTERY FEMORAL POPLITEAL Right 11/08/2023 Performed by Mike Montes MD at [facility] SPECIAL PROC CARDIAC CATHETERIZATION x4 heart stents COLONOSCOPY PROSTATE SURGERY SPINE SURGERY Vascular Invasive Right lower extremity angiogram with intervention/stent Right 11/07/2023 Performed by Mike Montes MD at [facility] CARDIAC CATH LABS Social and Family History: Social History Socioeconomic History Marital status: Spouse name: Not on file Number of children: Not on file Years of education: Not on file Highest education level: Not on file Occupational History Not on file Tobacco Use Smoking status: Every Day Current packs/day: 1.00 Average packs/day: 1 pack/day for 42.2 years (42.2 ttl pk-yrs) Types: Cigarettes Start date: 10/05/1981 Smokeless tobacco: Never Vaping Use Vaping status: Never Used Substance and Sexual Activity Alcohol use: Not Currently Drug use: Never Sexual activity: Defer Other Topics Concern Not on file Social History Narrative Not on file Social Determinants of Health Financial Resource Strain: Not on file Food Insecurity: No Food Insecurity (11/30/2023) Hunger Screening Food Insecurity - Worry: Never True Food Insecurity - Inability: Never True Transportation Needs: No Transportation Needs (11/07/2023) PRAPARE - Transportation Lack of Transportation (Medical): No Lack of Transportation (Non-Medical): No Physical Activity: Not on file Stress: Not on file Social Connections: Not on file Interpersonal Safety: Not At Risk (11/07/2023) Humiliation, Afraid, Rape, and Kick questionnaire Fear of Current or Ex-Partner: No Emotionally Abused: No Physically Abused: No Sexually Abused: No Housing Instability: Low Risk (11/07/2023) Housing Instability Housing Instability: No No family history on file. Recent Labs: Recent and relative labs were reviewed and interpreted and contributed to the assessment and plan below. Vitals: There were no vitals taken for this visit. There is no height or weight on file to calculate BMI. Physical Exam: Physical Exam Constitutional: Appearance: Normal appearance. HENT: Head: Normocephalic and atraumatic. Mouth/Throat: Mouth: Mucous membranes are moist. Eyes: Extraocular Movements: Extraocular movements intact. Pupils: Pupils are equal, round, and reactive to light. Cardiovascular: Rate and Rhythm: Normal rate and regular rhythm. Pulmonary: Effort: Pulmonary effort is normal. Breath sounds: Normal breath sounds. Abdominal: General: Abdomen is flat. Bowel sounds are normal. Palpations: Abdomen is soft. Musculoskeletal: General: Normal range of motion. Cervical back: Normal range of motion. Skin: General: Skin is warm and dry. Neurological: General: No focal deficit present. Mental Status: He is alert and oriented to person, place, and time. Mental status is at baseline. Psychiatric: Mood and Affect: Mood normal. Behavior: Behavior normal. Thought Content: Thought content normal. Judgment: Judgment normal. 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 He has some residual tibial occlusive disease. I discussed with him doing right lower extremity angiogram and intervention. Will do this close to home at [facility]. 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 While intending to generate a timely document that accurately reflects the content of the visit, no guarantee can be provided that every grammatical or spelling mistake has been or will be identified or corrected. Thank you for your understanding. documented in this encounterRegional Medical CenterTow Choice [facility] [id number] History of Present illness Narrative* Guero Mcbiju, DO - 11/30/2023 11:10 PM EDT Patient Name: Myra Pickard Date of : 1965 Date of Service: 11/30/2023 Facility: [facility] Type of Visit: Skilled Visit Subjective Myra Pickard is a 58 y.o. [facility]. Myra is in therapy. He has been allowed to toe touch wt bear and is doing well. He is planning on going home Monday. He has no new problems to report. He went to vascular surgeon and was told he probably needs 2 stents in his right lower leg. The incision in thigh did open a bit and drained clotted blood but is better now. He has steri-strips on his thigh. Allergies: Penicillins, Acetaminophen, Isosorbide mononitrate, Latex, Oxycodone, and Tamsulosin Code Status: FULL CODE BP 122/74 Pulse 70 Temp 36.3 C (97.3 F) Resp 18 Wt 93.2 kg (205 lb 6.4 oz) SpO2 98% BMI27.86 kg/m Physical Exam Vitals reviewed. Exam conducted with a production foreman present (). Constitutional: General: He is not in acute distress. Comments: Seen in room HENT: Head: Normocephalic. Cardiovascular: Rate and Rhythm: Normal rate and regular rhythm. Pulses: Normal pulses. Heart sounds: Normal heart sounds. No murmur heard. Pulmonary: Effort: Pulmonary effort is normal. No respiratory distress. Breath sounds: Normal breath sounds. No wheezing, rhonchi or rales. Abdominal: General: Bowel sounds are increased. There is no distension. Palpations: Abdomen is soft. Tenderness: There is no abdominal tenderness. Musculoskeletal: Cervical back: Neck supple. Comments: RLE in his walking boot Skin: General: Skin is warm and dry. Findings: No bruising or erythema. Comments: Incision on right thigh looks good. No sign of infection. Neurological: General: No focal deficit present. Mental Status: He is alert and oriented to person, place, and time. Psychiatric: Mood and Affect: Mood normal. Behavior: Behavior normal. Thought Content: Thought content normal. Judgment: Judgment normal. Summary / Assessment / Plan 1. 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 ([facility]) 3. Delayed surgical wound healing of foot amputation stump ([facility]) 4. Other abnormalities of gait and mobility Continue therapy to reach MMI. Ok to discharge on Monday. F/U with PCP within 2 weeks and specialists as directed. I recommended he stay on Trulicity and stop Januvia. He will discuss this with his PCP. All medications reviewed and are medically necessary. ELECTRONICALLY SIGNED BY: Guero Tam DO documented in this encounterW[facility] Center06-[facility]-2024 Evaluation + Plan note* Assessment & Plan Note - Mike Montes MD - 11/30/2023 9:19 AM EDT Associated Problem(s): Cigarette smoker motivated to quit Counseled on smoking cessation for at least 3 minutes [facility]06-27-2024 Miscellaneous Notes* Assessment & Plan Note - Mike Montes MD - 11/30/2023 9:19 AM EDTAssociated Problem(s): Cigarette smoker motivated to quit Counseled on smoking cessation for at least 3 minutes documented in this encounterWexner Medical Center06-27-2024 History of Present illness Narrative* Mike Montes MD - 11/30/2023 8:50 AM EDT VASCULAR SURGERY NOTE HPI Myra Pickard is a 58 y.o. male comes in for post op evaluation after undergoing Right femoropopliteal bypass. He is recovering well. On exam Doing well, wound is clean, dry and intact. No signs or symptoms of infection. Pain appears Well controlled. He continues to smoke. He is on aspirin Plavix and statin Assessment Myra was seen today for critical limb ischemia of right lower extremity with gangre. 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 Follow up 2 to 3 weeks. He will continue aspirin Plavix and statin. He will continue to work on smoking cessation. He will continue follow-up with wound care and podiatry. If his wound does not heal completely we will do tibial intervention. His bypass is patent however he has some residual tibial disease. Mike Montes MD, BG documented in this encounterWexner Medical Center06-27-2024 Instructions* Patient Instructions* Mike Montes MD - 11/30/2023 8:50 AM EDT Are You Ready To Kick The Habit? Free Tobacco Cessation Resources [facility] Services [facility] provide all employees with free tobacco cessation services that include: Counseling to understand nicotine addiction Education about medications that can help you successfully quit Assistance with developing a plan to quit Call to set up an individual appointment or find out when group classes will be held: [facility]: [phone] [facility]: [phone] [facility]: [phone] [facility]: [phone] Quit Smoking Action Plan and Resources [facility] offers an eight-week, online smoking cessation plan to all [facility] employees, regardless of whether [place] is your medical insurance provider. Go to [email or web address] and click the Health Risk Assessment and Resources link to get started. In the Motribe menu, click Action Plans instead of Health Risk Assessment to access the Quit Smoking Action Plan. Additional smoking cessation resources are also available to all [facility] employees on the [employer] web page at [email or web address]. [place] Tobacco Cessation Program If [place] is your medical insurance provider, there are more free resources available to you, including: No copays or deductibles on local tobacco cessation counseling services to help you quit Prescription assistance for tobacco cessation medications to help you quit For details about the tobacco cessation program available to [facility] members, go to www.[employer] (Search: Tobacco Cessation Program). [place] Tobacco Quit Line 2-632-VGFT-NOW ( ) is a toll-free, telephonic service that helps [place] residents quit smoking and using tobacco. It is staffed by experts who tailor a quit plan for you and provide you with advice. [place] Tobacco Quit Line 8-346-HROJ-NOW ( ) is a toll-free, telephonic service that helps [place] residents quit smoking and using tobacco. It is staffed by experts who tailor a quit plan for you and provide you with advice. Two weeks of nicotine replacement therapy may be provided at no charge, if needed. Additional Resources These national organizations also offer free information and resources to help you quit tobacco: [employer]--www.cancer.org/healthy/stayawayfromtobacco [place] Heart Association--www.heart.org (Search: Quit Smoking) Centers for Disease Control and Prevention--www.cdc.gov/tobacco [place] Lung Association--www.lungusa.org documented in this encounterKerbs Memorial HospitalGetSnippy [id number] History of Present illness Narrative* Guero Tam, - 11/24/2023 6:57 PM EDT Patient Name: Myra Pickard Date of : 1965 Date of Service: 11/24/2023 Facility: [facility] Type of Visit: Skilled Visit Subjective Myra Pickard is a 58 y.o. male seen today at correction facility for therapy visit. Myra is in therapy. He is hoping to be allowed to wt bear on his right foot. His called the vocational horticulture instructor to ask to be allowed to wt bear or he will be discharged from therapy. He had a bypass on the right lower leg and stent placed by vascular. He had an US and MICHELLE yesterday. He is still havinga lot of pain in the right leg. He feels a hard spot where his incision is and the US tech said shesaw something there. He is using oxycodone 10 mg Q4hrs prn and using it fairly regularly. He is also using tylenol 1000 mg Q8 hrs. He is getting local wound care. He says his pain is deep in the boneand goes up his leg to his back. He has a history of back problems and used to get injections. His BP dropped in therapy the other day and he got dizzy and had to sit down. Allergies: Penicillins, Acetaminophen, Isosorbide mononitrate, Latex, Oxycodone, and Tamsulosin Code Status: FULL CODE BP 122/70 Pulse 68 Temp 36.9 C (98.4 F) Wt 93.2 kg (205 lb 6.4 oz) BMI 27.85 kg/m Physical Exam Vitals reviewed. Exam conducted with a production foreman present (). Constitutional: General: He is not in acute distress. Comments: Seen in room HENT: Head: Normocephalic. Cardiovascular: Rate and Rhythm: Normal rate and regular rhythm. Pulses: Normal pulses. Heart sounds: Normal heart sounds. No murmur heard. Pulmonary: Effort: Pulmonary effort is normal. No respiratory distress. Breath sounds: Normal breath sounds. No wheezing, rhonchi or rales. Abdominal: General: Bowel sounds are increased. There is no distension. Palpations: Abdomen is soft. Tenderness: There is no abdominal tenderness. Musculoskeletal: Cervical back: Neck supple. Left lower leg: Edema (trace) present. Comments: RLE dressed in a splint. Skin: General: Skin is warm and dry. Findings: No bruising or erythema. Comments: Incision looks good. There is a firm mass underneath palpable Neurological: General: No focal deficit present. Mental Status: He is alert and oriented to person, place, and time. Psychiatric: Mood and Affect: Mood normal. Behavior: Behavior normal. Thought Content: Thought content normal. Judgment: Judgment normal. Summary / Assessment / Plan 1. Status post partial amputation of right foot ([facility]) 2. Other abnormalities of gait and mobility 3. Leg edema 4. Primary hypertension 5. Hypotension due to drugs 6. 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 Diabetic neuropathy His leg edema is pretty good. I'm going to decrease lasix to 20 mg and if it worsens then I will increase his Jardiance. Increase cymbalta to 90 mg. I think he may be developing tolerance to the oxycodone or hyperalgesia . We may need to switch it to another opioid. It looks like he has a hematoma at the incision site. Continue current regimen. All medications reviewed and are medically necessary. ELECTRONICALLY SIGNED BY: Guero Tam DO documented in this encounterWexner Medical Center06-17-2024 Evaluation + Plan note Future Scheduled Tests Radiology* US PVR Lower EXT Complete Bilat 11/20/23 [facility] 06-07-2024 Miscellaneous Notes* Telephone Encounter - Ashley Colon - 11/10/2023 10:05 AM EDT LMVM for patient's to call back with her Date of so I can update his billing info. documented in this encounterWexner Medical Center06-07-2024 Telephone encounter Note* Telephone Encounter - Ashley Colon - 11/10/2023 10:05 AM EDT LMVM for patient's to call back with her Date of so I can update his billing info. [facility]06-[facility] History of Present illness Narrative* Guero Tam, DO - 11/07/2023 11:59 PM EDT Patient Name: Myra Pickard Date of : 1965 Date of Service: 11/07/2023 Facility: [facility] Type of Visit: Skilled Visit Subjective Myra Pickard is a 58 y.o. male seen today at correction facility for therapy visit. Myra is participating in therapy. He is working on upper body strengthening. He has no new problems today. He is going to find out the results if his CT angiogram. He has an appointment with vascular specialist today. He wants me to check on his Januvia. He was taking it at home. He is using pain medication with benefit. He is not having any side effects. Allergies: Penicillins, Acetaminophen, Isosorbide mononitrate, Latex, Oxycodone, and Tamsulosin Code Status: FULL CODE BP (!) 157/97 Pulse 77 Temp 36.9 C (98.4 F) Physical Exam Vitals reviewed. Constitutional: General: He is not in acute distress. Comments: Seen in room HENT: Head: Normocephalic. Cardiovascular: Rate and Rhythm: Normal rate and regular rhythm. Pulses: Normal pulses. Heart sounds: Normal heart sounds. No murmur heard. Pulmonary: Effort: Pulmonary effort is normal. No respiratory distress. Breath sounds: Normal breath sounds. No wheezing, rhonchi or rales. Abdominal: General: Bowel sounds are increased. There is no distension. Palpations: Abdomen is soft. Tenderness: There is no abdominal tenderness. Musculoskeletal: Cervical back: Neck supple. Comments: RLE dressed in a splint. Neurological: General: No focal deficit present. Mental Status: He is alert and oriented to person, place, and time. Psychiatric: Mood and Affect: Mood normal. Behavior: Behavior normal. Thought Content: Thought content normal. Judgment: Judgment normal. Assessment/Plan Summary / Assessment / Plan 1. Peripheral arterial disease ([facility]) 2. Delayed surgical wound healing of foot amputation stump ([facility]) 3. Other abnormalities of gait and mobility 4. Status post partial amputation of right foot ([facility]) 5. Pressure ulcer of right ankle, stage 3 ([facility]) 6. Type 2 diabetes mellitus with stage 4 chronic kidney disease, without long- term current use of insulin [place] I checked his medications and he is on Trulicity so he doesn't need Januvia. F/U with vascular surgeon. May need further intervention in leg. Continue therapy to reach MMI. All medications reviewed and are medically necessary. ELECTRONICALLY SIGNED BY: Guero Tam DO documented in this encounterRegional Medical CenterTow Choice [facility] [id number] History of Present illness Narrative* Guero Tam DO - 11/03/2023 11:59 PM EDT Patient Name: Myra Pickard Date of : 1965 Date of Service: 11/03/2023 Facility: [facility] Type of Visit: Skilled Visit Subjective Myra Pickard is a 58 y.o. male seen today at correction facility for therapy visit. No new problems reported by patient or staff. He had a CT angiogram on his right lower leg on Monday. He finds out results this coming Monday. His pain is adequately controlled. He is getting woundcare. He is currently nonweightbearing still. He is in therapy. Allergies: Penicillins, Acetaminophen, Isosorbide mononitrate, Latex, Oxycodone, and Tamsulosin Code Status: FULL CODE BP 122/76 Pulse 75 Temp 36.5 C (97.7 F) Resp 20 Wt 93.7 kg (206 lb 9.6 oz) SpO2 97% BMI28.02 kg/m Physical Exam Vitals reviewed. Exam conducted with a production foreman present (). Constitutional: General: He is not in acute distress. Comments: Seen in room HENT: Head: Normocephalic. Cardiovascular: Rate and Rhythm: Normal rate and regular rhythm. Pulses: Normal pulses. Heart sounds: Normal heart sounds. No murmur heard. Pulmonary: Effort: Pulmonary effort is normal. No respiratory distress. Breath sounds: Normal breath sounds. No wheezing, rhonchi or rales. Abdominal: General: Bowel sounds are increased. There is no distension. Palpations: Abdomen is soft. Tenderness: There is no abdominal tenderness. Musculoskeletal: Cervical back: Neck supple. Comments: RLE dressed in a splint. Neurological: General: No focal deficit present. Mental Status: He is alert and oriented to person, place, and time. Psychiatric: Mood and Affect: Mood normal. Behavior: Behavior normal. Thought Content: Thought content normal. Judgment: Judgment normal. Summary / Assessment / Plan 1. Status post partial amputation of right foot ([facility]) 2. Pressure ulcer of right ankle, stage 3 ([facility]) 3. Other abnormalities of gait and mobility 4. Delayed surgical wound healing of foot amputation stump ([facility]) Await results of CT angiogram. May need vascular intervention. Continue therapy to reach maximum improvement. Continue other orders as directed. ELECTRONICALLY SIGNED BY: Guero Tam DO documented in this encounterWexner Medical Center05-22-2024 History of Present illness Narrative* Guero Tam DO - 10/25/2023 11:59 PM EDT Patient Name: Myra Pickard Date of : 1965 Date of Service: 10/25/2023 Facility: [facility] Type of Visit: Skilled Visit Subjective Myra Pickard is a 58 y.o. male seen today at correction facility for therapy visit. Myra was seen for a therapy visit. His SNF stay was extended by 1 week by his insurance company but he is still not able to do ADLs he needs to do to go home. He is still NWB on his right foot. He fell in therapy and injured the back of his right hand. 2 aides were helping him walk but he still fell with standby assistance. He has an ulcer on his left great toe now and is getting wound therapy. He still can't get off the toilet by himselt. He needs 1 person assist. He needs assistance to shower. He has 3 steps in his home but can only scooch up 1 step still. He doesn't have enough upper bodystrength to push himself up 3 steps. He has an application in for medicaid so hopefully he will be able to stay if his insurance forces a discharge from skilled therapy. He does have an electric scooter but it is for ambulating when he is not in his home. He cannot use it in there as he lives in a trailer and it isn't big enough. He saw a vascular surgeon and was told he had 24% circulation in his right leg. His thinks he isn't taking all his medications that he was at home prior to hospitalization and will bring in an updated list. Allergies: Penicillins, Isosorbide mononitrate, and Latex Code Status: FULL CODE BP 128/68 Pulse 70 Temp 36.4 C (97.6 F) Resp 20 Wt 99.3 kg (219 lb) SpO2 97% BMI 29.70 kg/m Physical Exam Vitals reviewed. Exam conducted with a production foreman present ([facility] Constitutional: General: He is not in acute distress. Comments: Seen in room HENT: Head: Normocephalic. Cardiovascular: Rate and Rhythm: Normal rate and regular rhythm. Pulses: Normal pulses. Heart sounds: Normal heart sounds. No murmur heard. Pulmonary: Effort: Pulmonary effort is normal. No respiratory distress. Breath sounds: Normal breath sounds. Abdominal: General: Bowel sounds are increased. There is no distension. Palpations: Abdomen is soft. Tenderness: There is no abdominal tenderness. Musculoskeletal: Cervical back: Neck supple. Left lower leg: Edema present. Comments: RLE dressed in a splint. Neurological: General: No focal deficit present. Mental Status: He is alert and oriented to person, place, and time. Psychiatric: Mood and Affect: Mood normal. Behavior: Behavior normal. Thought Content: Thought content normal. Judgment: Judgment normal. Assessment/Plan Summary / Assessment / Plan 1. Status post partial amputation of right foot ([facility]) 2. Osteomyelitis of right foot, unspecified type ([facility]) 3. Muscle weakness (generalized) 4. Other abnormalities of gait and mobility 5. Chronic obstructive pulmonary disease, unspecified COPD type ([facility]) 6. Peripheral arterial disease I'll review medication list when brings it in later this week. He is unable to reasonably go home in his current condition. He has PAD and will likely need another procedure to improve blood flow like a stent. He has a new ulcer on his left toe and needs wound care. It would be hard for him to get out to seespecialist if he lived on his own. Wound team can see him here. He is unable to get into his house in his current condition. He is not safe to leave alone. I don'trecommend discharge at this time. All medications reviewed. Will review med list soon. ELECTRONICALLY SIGNED BY: Guero Tam DO documented in this encounterRegional Medical CenterTow Choice [facility] [id number] NoteSinus tachycardia Rightward axis Poor anterior R wave progression QTc 481 [id number] History of Present illness Narrative* Vanessa Inman MD - 10/24/2023 10:20 AM EDT Subjective Myra Pickard is a 58 y.o. male Chief [...] Attestation By signing my name below, I, Adan Riley LPN attest that this documentation has [...] exam, discussion and plan. documented in this encounterMemorial [facility] Work Phone: 1(689) 410-102705-21-2024 Instructions* Patient Instructions* Rosemary Benavides LPN - [...] from a cardiac standpoint documented in this encounterMemorial [facility] Work Phone: 1(576) 353-945605-15-2024 Miscellaneous Notes* Telephone Encounter - Cameron Mg LPN - 10/18/2023 9:30 AM EDT Physician requested stat testing, patient unable to complete testing in [place] area> Spoke to Dr. Montes, states patient can have testing and f/u at [facility]. [place] office staff aware. Faxed orders to [facility] at [phone].Patient unable to complete testing at times that were offered, requested a Monday or Monday. documented in this encounterWexner Medical Center05-15-2024 Telephone encounter Note* Telephone Encounter - Cameron Mg LPN - 10/18/2023 9:30 AM EDT Physician requested stat testing, patient unable to complete testing in [place] area> Spoke to Dr. Montes, states patient can have testing and f/u at [place] office. [place] office staff aware. Faxed orders to [facility] at [phone].Patient unable to complete testing at times that were offered, requested a Monday or Monday. [facility]05-15-2024 Evaluation + Plan note* Assessment & Plan Note - Mike Montes MD - 10/18/2023 8:52 AM EDTAssociated Problem(s): Heavy tobacco smoker >10 cigarettes per day Counseled in length willing to quit. [facility]05-15-2024 Miscellaneous Notes* Assessment & Plan Note - Mike Montes MD - 10/18/2023 8:52 AM EDTAssociated Problem(s): Heavy tobacco smoker >10 cigarettes per day Counseled in length willing to quit. 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 To: No primary care provider on file. HPI: Myra Pickard is a 58 y.o. male with longstanding history of smoking current smoker with right lower extremity critical limb ischemia with recent history of TMA that is nonhealing. He had previous intervention in his left lower extremity. He does not have recent testing. He has a mild CKD. He has arecent stress test from last year that looks negative with ejection fraction about 50%. No recent testing for his lower extremities We talked about smoking cessation. He will quit smoking. And we also talked about getting a CT angiogram with runoff and a PVR to plan revascularization strategy for his right lower extremity for limb salvage. He will continue aspirin Plavix and statin. Review of Systems: Review of Systems Constitutional: Negative. HENT: Negative. Respiratory: Negative. Cardiovascular: Negative. Gastrointestinal: Negative. Endocrine: Negative. Genitourinary: Negative. Musculoskeletal: Negative. Skin: Negative. Neurological: Negative. Hematological: Negative. Medications: Current Outpatient Medications on File Prior to Visit Medication Sig Dispense Refill amitriptyline (ELAVIL) 100 mg tablet Take 1 tablet (100 mg total) by mouth nightly. aspirin 81 mg Take 1 tablet (81 mg total) by mouth in the morning. atorvastatin (LIPITOR) 80 mg tablet Take 1 tablet (80 mg total) by mouth in the morning. clopidogreL (PLAVIX) 75 mg tablet Take 1 tablet (75 mg total) by mouth in the morning. glimepiride (AMARYL) 2 mg tablet Take 1 tablet (2 mg total) by mouth in the morning and 1 tablet (2mg total) before bedtime. isosorbide mononitrate (IMDUR) 30 mg 24 hr tablet Take 1 tablet (30 mg total) by mouth daily. metFORMIN (GLUCOPHAGE) 1000 mg tablet Take 1 tablet (1,000 mg total) by mouth every 12 (twelve) hours. nitroglycerin (NITROSTAT) 0.[address] 1 tablet (0.4 mg total) under the tongue every 5 (five) minutes as needed for chest pain. omeprazole (PriLOSEC) 40 mg capsule Take 1 capsule (40 mg total) by mouth in the morning. oxyCODONE-acetaminophen (PERCOCET) 5-325 mg per tablet Take 1 tablet by mouth every 4 (four) hours as needed. pregabalin (LYRICA) 200 mg capsule Take 1 capsule (200 mg total) by mouth 3 (three) times a day. rOPINIRole (REQUIP) 1 mg tablet Take 1 tablet (1 mg total) by mouth 3 (three) times a day. No current facility-administered medications on file prior to visit. Past Medical History: History reviewed. No pertinent past medical history. Past Surgical History: Past Surgical History: Procedure Laterality Date AMPUTATION FOOT / TOE Right 09/29/2023 APPENDECTOMY CARDIAC CATHETERIZATION 4 stents COLONOSCOPY PROSTATE SURGERY SPINE SURGERY Social and Family History: Social History Socioeconomic History Marital status: Spouse name: Not on file Number of children: Not on file Years of education: Not on file Highest education level: Not on file Occupational History Not on file Tobacco Use Smoking status: Every Day Current packs/day: 1.00 Average packs/day: 1 pack/day for 42.0 years (42.0 ttl pk-yrs) Types: Cigarettes Start date: 10/05/1981 Smokeless tobacco: Not on file Substance and Sexual Activity Alcohol use: Not on file Drug use: Not on file Sexual activity: Not Currently Other Topics Concern Not on file Social History Narrative Not on file Social Determinants of Health Financial Resource Strain: Not on file Food Insecurity: No Food Insecurity (10/18/2023) Hunger Screening Food Insecurity - Worry: Never True Food Insecurity - Inability: Never True Transportation Needs: Not on file Physical Activity: Not on file Stress: Not on file Social Connections: Not on file Interpersonal Safety: Not on file Housing Instability: Not on file History reviewed. No pertinent family history. Recent Labs: Recent and relative labs were reviewed and interpreted and contributed to the assessment and plan below. Vitals: BP 138/90 (BP Site: Right Arm, BP Postition: Sitting, BP CUFF SIZE: M (9-13 inches)) Ht 182.9 cm (6') Wt 93.9 kg (207 lb) BMI 28.07 kg/m Body mass index is 28.07 kg/m . Physical Exam: Physical Exam Constitutional: Appearance: Normal appearance. HENT: Head: Normocephalic and atraumatic. Mouth/Throat: Mouth: Mucous membranes are moist. Eyes: Extraocular Movements: Extraocular movements intact. Pupils: Pupils are equal, round, and reactive to light. Cardiovascular: Rate and Rhythm: Normal rate and regular rhythm. Pulmonary: Effort: Pulmonary effort is normal. Breath sounds: Normal breath sounds. Abdominal: General: Abdomen is flat. Bowel sounds are normal. Palpations: Abdomen is soft. Musculoskeletal: General: Normal range of motion. Cervical back: Normal range of motion. Skin: General: Skin is warm and dry. Neurological: General: No focal deficit present. Mental Status: He is alert and oriented to person, place, and time. Mental status is at baseline. Psychiatric: Mood and Affect: Mood normal. Behavior: Behavior normal. Thought Content: Thought content normal. Judgment: Judgment normal. Recent testing: As able to get some of his testing from [facility] in [place]. I looked at a stress test andbasic labs. Assessment and Plan: Problem List Heavy tobacco smoker >10 cigarettes per day Current Assessment & Plan Counseled in length willing to quit. 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 While intending to generate a timely document that accurately reflects the content of the visit, no guarantee can be provided that every grammatical or spelling mistake has been or will be identified or corrected. Thank you for your understanding. documented in this encounterRegional Medical CenterSellobuy [id number] Instructions* Patient Instructions* Mike Montes MD - 10/18/2023 8:30 AM EDT Are You Ready To Kick The Habit? Free Tobacco Cessation Resources [facility] Services [facility] provide all employees with free tobacco cessation services that include: Counseling to understand nicotine addiction Education about medications that can help you successfully quit Assistance with developing a plan to quit Call to set up an individual appointment or find out when group classes will be held: [facility]: [phone] [facility]: [phone] [facility]: [phone] [facility]: [phone] Quit Smoking Action Plan and Resources [facility] offers an eight-week, online smoking cessation plan to all [facility] employees, regardless of whether [facility] is your medical insurance provider. Go to [email or web address] and click the Health Risk Assessment and Resources link to get started. In the Motribe menu, click Action Plans instead of Health Risk Assessment to access the Quit Smoking Action Plan. Additional smoking cessation resources are also available to all [facility] employees on the [employer] web page at [email or web address]. [place] Tobacco Cessation Program If [facility] is your medical insurance provider, there are more free resources available to you, including: No copays or deductibles on local tobacco cessation counseling services to help you quit Prescription assistance for tobacco cessation medications to help you quit For details about the tobacco cessation program available to [facility] members, go to www.[employer] (Search: Tobacco Cessation Program). [place] Tobacco Quit Line 7-046-NLWK-NOW ( ) is a toll-free, telephonic service that helps [place] residents quit smoking and using tobacco. It is staffed by experts who tailor a quit plan for you and provide you with advice. [place] Tobacco Quit Line 4-745-HUNS-NOW ( ) is a toll-free, telephonic service that helps [place] residents quit smoking and using tobacco. It is staffed by experts who tailor a quit plan for you and provide you with advice. Two weeks of nicotine replacement therapy may be provided at no charge, if needed. Additional Resources These national organizations also offer free information and resources to help you quit tobacco: [place] [employer]--www.cancer.org/healthy/stayawayfromtobacco [place] Heart Association--www.heart.org (Search: Quit Smoking) Centers for Disease Control and Prevention--www.cdc.gov/tobacco [place] Lung Association--www.lungusa.org documented in this encounterRegional Medical CenterTow Choice [facility] [id number] Note* Addendum Note - Mike Montes MD - 10/18/2023 8:30 AM EDTAddended by: MIKE MONTES on: 10/18/2023 09:00 AM Modules accepted: Orders [facility] Wickr [id number] History of Present illness Narrative* Guero Tam DO - 10/17/2023 11:59 PM EDT Patient Name: Myra Pickard Date of : 1965 Date of Service: 10/17/2023 Facility: [facility] Type of Visit: Skilled Visit Subjective Myra Pickard is a 58 y.o. male seen today at [facility] for therapy visit. Myra has been having a lot of pain in his foot. It is primarily with dressing changes. He has dressing changes every other day. It hurts for much of the rest of the day. He is using oxycodone p.r.n.and it helps mildly for the pain when it is severe. He describes the pain as burning. He would likesomething else in addition to the oxycodone for the pain. He is taking Lyrica 600 mg daily. He is also on amitriptyline 100 mg at bedtime. He is participating in therapy. Unfortunately he is still nonweightbearing right leg. He is overcompensating and now has pain and spasms in his left calf and had an ultrasound done to check for DVT. He saw the specialist for post-op check and they are referring home to vascular possible limb ischemia. Allergies: Penicillins, Isosorbide mononitrate, and Latex Code Status: FULL CODE BP 132/70 Pulse 94 Temp 36.9 C (98.4 F) Resp 18 Wt 93.9 kg (207 lb) SpO2 97% Physical Exam Exam conducted with a production foreman present (Lefty CORREAII). Constitutional: General: He is not in acute distress. Comments: Up in unit in therapy department HENT: Head: Normocephalic. Cardiovascular: Rate and Rhythm: Normal rate and regular rhythm. Pulses: Normal pulses. Heart sounds: Normal heart sounds. No murmur heard. Pulmonary: Effort: Pulmonary effort is normal. No respiratory distress. Breath sounds: Normal breath sounds. Abdominal: General: Bowel sounds are increased. There is no distension. Palpations: Abdomen is soft. Tenderness: There is no abdominal tenderness. Musculoskeletal: Cervical back: Neck supple. Left lower leg: No edema. Comments: RLE dressed in a splint. Neurological: General: No focal deficit present. Mental Status: He is alert and oriented to person, place, and time. Psychiatric: Mood and Affect: Mood normal. Behavior: Behavior normal. Thought Content: Thought content normal. Judgment: Judgment normal. Summary / Assessment / Plan 1. Status post partial [place] foot [place] 2. 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 Type 2 diabetes mellitus with stage 4 chronic kidney disease, without long- term current use of insulin [place] I'm going to add duloxetine 60 mg daily for diabetic neuropathy. Continue therapy. All medications reviewed and are medically necessary. F/U with specialists as directed. ELECTRONICALLY SIGNED BY: Guero Tam DO documented in this encounterWexner Medical Center05-07-2024 History of Present illness Narrative* Guero Tam DO - 10/10/2023 11:33 PM EDT Patient Name: Myra Pickard Date of : 1965 Date of Service: 10/10/2023 Facility: [facility] Type of Visit: Skilled Visit Subjective Myra Pickard is a 58 y.o. male [facility] for [facility] visit. Myra is having diarrhea. He had 5 episodes in last day and had an accident in bed. He doesn't haveany pain, blood or fever. There isn't a foul smell reported like one would expect with C. dif. He is on levofloxacin for osteomyelitis. He has an appointment with the vocational horticulture instructor on Monday. He said his colonoscopy was in the last 10 years and was ok. His appetite is down. He would like something for it. He is participating in therapy. His FBSs are improving and some have been low. Allergies: Patient has no allergy information on record. Code Status: FULL CODE BP 142/78 Pulse 102 Temp 36.7 C (98.1 F) Resp 18 SpO2 98% Physical Exam Exam conducted with a production foreman present (Lefty Rosas [facility] Constitutional: General: He is not in acute distress. Comments: Up in unit in therapy department HENT: Head: Normocephalic. Cardiovascular: Rate and Rhythm: Normal rate and regular rhythm. Pulses: Normal pulses. Heart sounds: Normal heart sounds. No murmur heard. Pulmonary: Effort: Pulmonary effort is normal. No respiratory distress. Breath sounds: Normal breath sounds. Abdominal: General: Bowel sounds are increased. There is no distension. Palpations: Abdomen is soft. Tenderness: There is no abdominal tenderness. Musculoskeletal: Cervical back: Neck supple. Left lower leg: No edema. Neurological: General: No focal deficit present. Mental Status: He is alert and oriented to person, place, and time. Psychiatric: Mood and Affect: Mood normal. Behavior: Behavior normal. Thought Content: Thought content normal. Judgment: Judgment normal. Assessment/Plan Summary / Assessment / Plan 1. Diarrhea, unspecified type 2. Other acute osteomyelitis of right foot ([facility] 3. Status post partial amputation of right foot ([facility]) 4. Chronic obstructive pulmonary disease, unspecified COPD type ([facility]) 5. Abscess of right foot Will try immodium 2mg 2 po Q6 hrs prn for diarrhea. May need to check for C. dif Continue therapy. F/U with vocational horticulture instructor on Monday. All medications reviewed and are medically necessary. May need to adjust diabetic medications in future. ELECTRONICALLY SIGNED BY: Guero Tam DO documented in this encounterRegional Medical CenterTow Choice [facility] [id number] History of Present illness Narrative* Guero Tam DO - 10/06/2023 4:49 PM EDT Patient Name: Myra Pickard Date of : 1965 Date of Service: 10/06/2023 Facility: [facility] Type of Visit: Admission H&P Subjective Myra Pickard is a 58 y.o. male seen today at [facility] facility for admission H&P. Myra presents to [facility] for therapies following hospitalization for sepsis due to osteomyelitis whichresulted in partial amputation of right foot. He is non- weight bearing for now. He couldn't go homeand take care of himself. He is weak too. He is using oxycodone Q4hrs prn. Pain gets as high as a 9or 9.5 on a scale of 1-10. That is when he asks for a pill. He had a BM today but didn't have one since last Monday. His appetite is ok. He is voiding ok. He has stage 4 CKD. He has known heart disease. He is planning on going home with able. Allergies: Patient has no allergy information on record. Code Status: FULL CODE The following portions of the patient's history were reviewed and updated as appropriate: allergies, current medications, past family history, past medical history, past social history, past surgicalhistory, problem list, and medication reconciliation was completed including current medication andpost discharge medication. Review of Systems Constitutional: Negative. HENT: Negative. Respiratory: Negative. Cardiovascular: Negative. Gastrointestinal: Positive for constipation. Genitourinary: Negative. Musculoskeletal: Positive for arthralgias. Foot pain Neurological: Positive for numbness. Psychiatric/Behavioral: Negative. BP 117/71 Pulse 98 Temp 36.9 C (98.4 F) Resp 18 Wt 93.9 kg (207 lb) SpO2 96% Physical Exam Exam conducted with a production foreman present ( present). Constitutional: General: He is not in acute distress. Appearance: He is obese. He is not ill-appearing. HENT: Head: Normocephalic. Eyes: Extraocular Movements: Extraocular movements intact. Conjunctiva/sclera: Conjunctivae [...] Tenderness: There is no abdominal tenderness. Musculoskeletal: General: Deformity (RLE in wrap up to near knee) present. Cervical back: Neck supple. Left lower leg: No edema. Neurological: General: No focal deficit present. Mental Status: He is alert and oriented to person, place, and time. Psychiatric: Attention and Perception: Attention normal. Mood and Affect: Mood and affect normal. Speech: Speech normal. Behavior: Behavior normal. Behavior is cooperative. Thought Content: Thought content normal. Judgment: Judgment normal. Assessment/Plan Summary / Assessment / Plan 1. Abscess of right foot 2. Status post partial amputation of right foot ([facility]) 3. Type 2 diabetes mellitus with stage 4 chronic kidney disease, without long- term current use of insulin ([facility]) 4. Atherosclerosis of [place] coronary artery of [place] heart without angina pectoris 5. Bacterial sepsis [place] 6. Other acute osteomyelitis of right foot [place] 7. Chronic obstructive pulmonary disease, unspecified COPD type [place] 8. Cigarette smoker 9. BPH with obstruction/lower urinary tract symptoms 10. Gastroesophageal reflux disease, unspecified whether esophagitis present 11. Restless leg syndrome 12. Hyperlipidemia, unspecified hyperlipidemia type 13. Carpal tunnel syndrome, unspecified laterality 14. Heart failure, unspecified HF chronicity, unspecified heart failure type [place] [place] Admit to [facility] for therapies. Full code. Continue medications from hospital. F/U with specialists as directed. Good rehab potential. Planning on discharge to home when able. ELECTRONICALLY SIGNED BY: Guero Tam DO documented in this encounterRegional Medical CenterTow Choice [facility] [id number] Hospital Discharge instructions Follow Up Care 07/13/2023 12:04:02 With:SOLEDAD HERRERA, Yeyo Blum, URL Address: [address] [place] [address]- When: Unknown [facility] 01-22-2024 Evaluation note* Encounter Date Diagnosis Assessment Notes Treatment Notes Treatment Clinical Notes Jun, Hyperlipidemia (ICD-10 - E78.5) [facility] Other 12-29-2023 Hospital Discharge instructions Patient Education [...] urethra. Follow these instructions at home: Take hjyb-tfe-zwbiprl and prescription medicines only as told by [...] provider. Document Revised: 12/08/2021 Document Reviewed: 12/08/2021 [employer] Patient Education 2022 [employer]. Follow Up Care 06/01/2023 14:05:36 With:SOLEDAD HERRERA, Yeyo Blum, URL Address: [address] [place] [id number]- When: Unknown [facility] [place] 12-12-2023 Evaluation note* Encounter Date Diagnosis Assessment Notes Treatment Notes Treatment Clinical Notes May, 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) [facility] Other 11-24-2023 Evaluation note* Encounter Date Diagnosis Assessment Notes Treatment Notes Treatment Clinical Notes Apr, Diabetic nephropathy (ICD-10 - E11.21) [facility] Other 11-07-2023 Evaluation note* Encounter Date Diagnosis Assessment Notes Treatment Notes Treatment Clinical Notes Apr, Left arm pain (ICD-10 - M79.602) [facility] Other 11-02-2023 Evaluation note* Encounter Date Diagnosis [...] and to have his surgery as scheduled. [facility] Other 10-24-2023 Evaluation note* Encounter Date Diagnosis Assessment Notes Treatment Notes Treatment Clinical Notes Mar, 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) Mar, Atherosclerotic hear t disease of [place] coronary artery without angina pectoris (ICD-10 - I25.10) [facility] Other 10-11-2023 Evaluation note* Encounter Date Diagnosis [...] available as of yet from [facility]. He was found to have developed [...] to continue to montior this at home. [facility] Other 10-09-2023 Note [id number] Discharge instructions Patient Education [...] including vitamins, herbs, eye drops, creams, and uxxj-evy-ujlaiky medicines. Any problems you or family members [...] provider tells you to take them. Taking hebq-egh-hywezzw medicines, vitamins, herbs, and supplements. Surgery safety [...] provider. Document Revised: 02/15/2022 Document Reviewed: 02/15/2022 [employer] Patient Education 2022 [employer]. [facility]08-28-2023 Hospital Discharge instructions Patient Education 01/30/2023 [...] including vitamins, herbs, eye drops, creams, and qljh-gsv-lbplmpi medicines. ?Whether you are or may be [...] provider. Document Revised: 02/02/2022 Document Reviewed: 12/25/2020 [employer] Patient Education 2022 [employer] 01/30/2023 11:22:30 Cystoscopy Cystoscopy Cystoscopy is [...] including vitamins, herbs, eye drops, creams, and rkgk-zje-ahpkdcx medicines. Any problems you or family members [...] provider tells you to take them. Taking fovv-wak-gbqwmqb medicines, vitamins, herbs, and supplements. Tests You [...] Follow these instructions at home: Medicines Take zwgx-ibm-nxqlrin and prescription medicines only as told by [...] provider. Document Revised: 02/02/2022 Document Reviewed: 01/01/2021 [employer] Patient Education 2022 [employer]. Follow Up Care 11/23/2022 13:02:56 With:SOLEDAD HERRERA, Yeyo Blum, URL Address: [facility] [address] [place] [address]- [phone] When: Unknown Comments:sched cysto/uros [facility] A[facility] 08-15-2023 Evaluation note* Encounter Date Diagnosis Assessment Notes Treatment Notes Treatment Clinical Notes Jan, Diabetic nephropathy (ICD-10 - E11.21) [facility] Other 06-29-2023 Evaluation note* Encounter Date Diagnosis [...] reviewed. Nov, Atherosclerotic hear t disease of [place] coronary artery without angina pectoris (ICD-10 - I25.10) Encouraged patient to follow with Cardiology as scheduled. [facility] Other 06-21-2023 Hospital Discharge instructions Patient Education [...] provider. Document Revised: 08/11/2021 Document Reviewed: 05/07/2021 [employer] Patient Education 2021 [employer]. Follow Up Care 09/14/2022 14:23:26 With:SOLEDAD HERRERA, Yeyo Blum, URL Address: [facility] [address] [place] [address]- When: Unknown [facility] [place] 05-05-2023 Evaluation note* Encounter Date Diagnosis Assessment Notes Treatment Notes Treatment Clinical Notes October, Erectile dysfunction, unspecified erectile dysfunction type (ICD-10 - N52.9) [facility] Other 04-19-2023 Evaluation note* Encounter Date Diagnosis Assessment Notes Treatment Notes Treatment Clinical Notes Sep, 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) [facility] Other 04-12-2023 Evaluation note* Encounter Date Diagnosis Assessment Notes Treatment Notes Treatment Clinical Notes Sep, Atherosclerotic hear t disease of [place] coronary artery without angina pectoris (ICD-10 - I25.10) Sep, 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) [facility] Other 03-20-2023 Evaluation note* Encounter Date Diagnosis Assessment Notes Treatment Notes Treatment Clinical Notes Aug, Diabetic nephropathy (ICD-10 - E11.21) [facility] Other 03-03-2023 Evaluation note* Encounter Date Diagnosis Assessment Notes Treatment Notes Treatment Clinical Notes Aug, Pain in right leg (ICD-10 - M79.604) [facility] Other 03-02-2023 Evaluation note* Encounter Date Diagnosis Assessment Notes Treatment Notes Treatment Clinical Notes Aug, Pain in right leg (ICD-10 - M79.604) [facility] Other 02-20-2023 Evaluation note* Encounter Date Diagnosis Assessment Notes Treatment Notes Treatment Clinical Notes Jul, Intractable episodic headache, unspecified headache type (ICD-10 - R51.9) [facility] Other 02-14-2023 Evaluation note* Encounter Date Diagnosis Assessment Notes Treatment Notes Treatment Clinical Notes Jul, Acute intractable headache, unspecified headache type (ICD-10 - R51.9) [facility] Other 02-08-2023 Evaluation note* Encounter Date Diagnosis Assessment Notes Treatment Notes Treatment Clinical Notes Jul, Headache (ICD-10 - R51.9) [facility] Other 01-30-2023 Evaluation note* Encounter Date Diagnosis [...] medication and we will continue to monitor. [facility] Other 12-21-2022 Evaluation note* Encounter Date Diagnosis Assessment Notes Treatment Notes Treatment Clinical Notes May, Diabetic nephropathy (ICD-10 - E11.21) [facility] Other 11-21-2022 Evaluation note* Encounter Date Diagnosis Assessment Notes Treatment Notes Treatment Clinical Notes Apr, Diabetic nephropathy (ICD-10 - E11.21) [facility] Other 11-15-2022 Evaluation note* Encounter Date Diagnosis Assessment Notes Treatment Notes Treatment Clinical Notes Apr, Pain in right leg (ICD-10 - M79.604) [facility] Other 10-18-2022 Evaluation note* Encounter Date Diagnosis Assessment Notes Treatment Notes Treatment Clinical Notes Mar, Diabetic nephropathy (ICD-10 - E11.21) [facility] Other 09-13-2022 Evaluation note* Encounter Date Diagnosis Assessment Notes Treatment Notes Treatment Clinical Notes Feb, Hypertensive chronic kidney disease with stage 1 through stage 4 chronic kidney disease, or unspecified chronic kidney disease (ICD-10 - I12.9) [facility] Other 09-13-2022 Evaluation note* Encounter Date Diagnosis [...] scheduled. Feb, Atherosclerotic hear t disease of [place] coronary artery without angina pectoris (ICD-10 - [...] is to continue to follow with the drug regulatory affairs specialist as scheduled. Feb, Pain in right [...] Noted upon review of blood work results. [facility] Other 08-19-2022 Evaluation note* Encounter Date Diagnosis Assessment Notes Treatment Notes Treatment Clinical Notes Jan, Diabetic nephropathy (ICD-10 - E11.21) [facility] Other 08-17-2022 Evaluation note* Encounter Date Diagnosis Assessment Notes Treatment Notes Treatment Clinical Notes Jan, Diabetic nephropathy (ICD-10 - E11.21) [facility] Other 07-21-2022 Evaluation note* Encounter Date Diagnosis Assessment Notes Treatment Notes Treatment Clinical Notes Dec, Diabetic nephropathy (ICD-10 - E11.21) [facility] Other 06-22-2022 Evaluation note* Encounter Date Diagnosis Assessment Notes Treatment Notes Treatment Clinical Notes Nov, Diabetic nephropathy (ICD-10 - E11.21) [facility] Other 05-23-2022 Evaluation note* Encounter Date Diagnosis Assessment Notes Treatment Notes Treatment Clinical Notes October, Diabetic nephropathy (ICD-10 - E11.21) [facility] Other 05-17-2022 Evaluation note* Encounter Date Diagnosis [...] E11.59) October, Atherosclerotic hear t disease of [place] coronary artery without angina pectoris (ICD-10 - I25.10) Patient follows with Dr. Inman. For this October, Other He did quit smoking since July 2020 [facility] Other 05-16-2022 Evaluation note* Encounter Date Diagnosis Assessment Notes Treatment Notes Treatment Clinical Notes October, Hypertensive chronic kidney disease with stage 1 through stage 4 chronic kidney disease, or unspecified chronic kidney disease (ICD-10 - I12.9) October, Stage 3 chronic kidney disease, unspecified whether stage 3a or 3b CKD (ICD-10 - N18.30) [facility] Other 05-06-2022 Evaluation note* Encounter Date Diagnosis Assessment Notes Treatment Notes Treatment Clinical Notes October, Pain in right leg (ICD-10 - M79.604) October, Pain in left leg (ICD-10 - M79.605) [facility] Other 04-20-2022 Evaluation note* Encounter Date Diagnosis Assessment Notes Treatment Notes Treatment Clinical Notes Sep, Diabetic nephropathy (ICD-10 - E11.21) [facility] Other 04-19-2022 Evaluation note* Encounter Date Diagnosis Assessment Notes Treatment Notes Treatment Clinical Notes Sep, Anxiety (ICD-10 - F41.9) Sep, Hypertensive chronic kidney disease with stage 1 through stage 4 chronic kidney disease, or unspecified chronic kidney disease (ICD-10 - I12.9) [facility] Other 03-07-2022 Evaluation note* Encounter Date Diagnosis Assessment Notes Treatment Notes Treatment Clinical Notes Aug, Anxiety (ICD-10 - F41.9) [facility] Other 02-22-2022 Evaluation note* Encounter Date Diagnosis [...] to see if insurance will cover the jigar or dexcom. I did provide samples of the trulicity. Jul, Weight loss (ICD-10 - R63.4) Patient presents in the office with a 12 pound weight loss from last visit. [facility] Other 01-19-2022 Evaluation note* Encounter Date Diagnosis Assessment Notes Treatment Notes Treatment Clinical Notes Jun, Diabetic nephropathy (ICD-10 - E11.21) [facility] Other Discharge summary Author João Powell [facility] March 06, 2024 4:23pm Note Date/Time March 06, 2024 3: 58pm [facility] [address] [place] [address] Discharge Summary Signed Patient: Myra Pickard SR MR#: [id number] : 1965 Acct:[id number] Age/Sex: 58 / M Adm Date: 4 Loc: Room: [address] [place] [address]: João Powell MD Copies to: DO João Guzman MD~ Providers Date of Discharge: 03/06/24 Discharging Provider: João Powell Primary Care Provider: Teresa Lynch Consults: 03/03/24 17:53 Consult to Neurology [...] neuropathy status post right BKA recently at [facility]. He presents today with episodes of lightheadedness [...] PO DAILY Qty: 90 1RF (DME) FreeStyle Jigar 2 Sensor Kit See Rx Instructions .ROUTE Qty: 1 0RF Rx Instructions: As directed (DME) FreeStyle Jigar 2 [place] Misc See Rx Instructions .ROUTE Qty: 1 [...] - Aurelio [Outside] - 04/02/24 10:00 am Teresa Lynch DO [Primary Care Provider] - 03/19/24 [...] % (Auto) N/A, Lymph % (Auto) N/A, Sanders % (Auto) N/A, Eos % (Auto) N/A, Baso % (Auto) N/A, Nucleat RBC Rel Count N/A, Neut # (Auto) N/A, Lymph # (Auto) N/A, Sanders # (Auto) N/A, Eos # (Auto) N/A, [...] signed by João Powell MD> 03/06/24 1623 [facility] Work Phone: Evaluation + Plan note Future Appointments Appointment Date:12/21/2022 11:00:00 AM Scheduled Provider: Location:[facility] Appointment Type:URO Nurse Visit Appointment Date:01/30/2023 10:30:00 AM Scheduled Provider:Yeyo ROWE MD Location:[facility] Appointment Type:URO Office Visit [facility] Evaluation + Plan note Future Appointments Appointment Date:01/30/2023 10:15:00 AM Scheduled Provider:Yeyo ROWE MD Location:[facility] Appointment Type:URO Office Visit [facility] Evaluation + Plan note Future Appointments Appointment Date:02/01/2023 10:00:00 AM Scheduled Provider: Location:[facility] Appointment Type:Urology CALL PAT FT Appointment Date:02/08/2023 09:00:00 AM Scheduled Provider: Location:[facility] Appointment Type:Urology FT Appointment Date:02/14/2023 09:15:00 AM Scheduled Provider: Location:[facility] Appointment Type:Urology FT [facility] evaluation + Plan note Future Appointments Appointment Date:02/14/2023 09:15:00 AM Scheduled Provider: Location:[facility] Future Appointments Appointment Date:03/20/2023 08:45:00 AM Scheduled Provider: Location:[facility] Appointment Type:URO Nurse Visit Appointment Date:04/05/2023 08:00:00 AM Scheduled Provider:Yeyo ROWE MD Location:[facility] App[facility]ment [facility]O [facility] Future Appointments Appointment Date:05/03/2023 08:45:00 AM Scheduled Provider:Yeyo ROWE MD Location:[facility] Appointment Type:URO Office Visit [facility] Evaluation + Plan note Future Appointments Appointment Date:07/03/2023 10:15:00 AM Scheduled Provider:Yeyo ROWE MD Location:[facility] Appointment Type:URO Office Visit [facility] evaluation + Plan note Future Appointments Appointment Date:10/23/2023 09:30:00 AM Scheduled Provider:Mike Montes MD Location[facility] Appointment Type:[facility] (FT) [facility] noteNo InformationNort [employer] Other Evaluation noteNo assessment information available [facility] Work Phone: Evaluwanpg note* Diagnosis History of PTCA Postsurgical percutaneous transluminal coronary angioplasty status Hyperlipidemia, unspecified hyperlipidemia type Encounter for pre-operative cardiovascular clearance Former smoker Personal history of tobacco use, presenting hazards to health documented in this encounter [facility] Work Phone: Evaluation note* Diagnosis [...] disease chron ic Diabetes chronic Hypertension chronic [facility] Work Phone: Evaluation note* Diagnosis Onset [...] chronic Altered mental status acute Hypothermia acute [facility] Work Phone: Evaluation note* Diagnosis Onset [...] acute Restless legs syndrome acute Syncope acute [facility] Work Phone: Evaluation note* Diagnosis Onset [...] imaging acute GERD (gastroesophageal reflux disease) acute [facility] Work Phone: Evaluation note* Diagnosis Onset [...] GERD (gastroesophageal reflux disease) acute Diabetes acute [facility] Work Phone: Evaluation note* Diagnosis Shortness of breath documented in this encounter [facility] Work Phone: Evaluation note* Diagnosis Abscess of right foot- Primary Cellulitis and abscess of foot, except toes Status post partial [place] right foot [place] Type 2 diabetes mellitus with stage 4 chronic kidney disease, without long-term current use of insulin [place] Atherosclerosis of [place] coronary artery of [place] heart without angina pectoris Bacterial sepsis ([facility] Bacteremia Other acute osteomyelitis of right foot [place] Chronic obstructive pulmonary disease, unspecified COPD type ([facility] Cigarette smoker Tobacco use disorder BPH with obstruction/lower urinary tract symptoms Gastroesophageal reflux disease, unspecified whether esophagitis present Restless leg syndrome Restless legs syndrome (RLS) Hyperlipidemia, unspecified hyperlipidemia type Carpal tunnel syndrome, unspecified laterality Heart failure, unspecified HF chronicity, unspecified heart failure type [place] [facility] Diagnosis Diarrhea, unspecified type- Primary Other acute osteomyelitis of right foot ([facility]) Status post partial amputation of right foot [place] Chronic obstructive pulmonary disease, unspecified COPD type ([facility] Abscess of right foot Cellulitis and abscess of foot, except toes Type 2 diabetes mellitus with stage 4 chronic kidney disease, without long-term current use of insulin [place] [facility] Diagnosis Status post partial amputation of right foot [place] Primary Pressure ulcer of right ankle, stage 3 ([facility] Other abnormalities of gait and mobility Delayed surgical wound healing of foot amputation stump ([facility] [facility] Diagnosis 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 ([facility] Primary Poor circulation Unspecified circulatory system disorder Heavy tobacco smoker >10 cigarettes per day [facility] Diagnosis Status post partial amputation of right foot ([facility] Primary 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 [place] Type 2 diabetes mellitus with stage 4 chronic kidney disease, without long-term current use of insulin ([facility]) [facility] Diagnosis Peripheral arterial disease ([facility] Primary Unspecified peripheral vascular disease Delayed surgical wound healing of foot amputation stump ([facility]) Other abnormalities of gait and mobility Status post partial amputation of right foot ([facility]) Pressure ulcer of right ankle, stage 3 ([facility]) Type 2 diabetes mellitus with stage 4 chronic kidney disease, without long-term current use of insulin ([facility]) [facility] Diagnosis 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 ([facility] Primary Status post partial amputation of right foot ([facility])- Primary Osteomyelitis of right foot, unspecified type ([facility]) Muscle weakness (generalized) Other abnormalities of gait and mobility Chronic obstructive pulmonary disease, unspecified COPD type ([facility]) Peripheral arterial disease ([facility]) Unspecified peripheral vascular disease 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 ([facility]) [facility] Diagnosis Status post partial amputation of right foot ([facility])- Primary Other abnormalities of gait and mobility Leg edema Edema Primary hypertension Unspecified essential hypertension Hypotension due to drugs Other iatrogenic hypotension 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 ([facility]) Diabetic polyneuropathy associated with type 2 diabetes mellitus ([facility]) [facility] Diagnosis 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 ([facility])- Primary Cigarette smoker motivated to quit [facility] encounter [facility] Diagnosis 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 ([facility] Primary 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 ([facility]) Delayed surgical wound healing of foot amputation stump ([facility]) Other abnormalities of gait and mobility [facility] encounter [facility] Diagnosis 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 ([facility] Primary [facility] Diagnosis 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 ([facility])- Primary Cigarette smoker Tobacco use disorder [facility]* Diagnosis Diabetic polyneuropathy associated with type 2 diabetes mellitus ([facility])- Primary Disorientation Other general symptoms Other abnormalities of gait and mobility Status post partial amputation of right foot ([facility]) Atherosclerosis of [place] coronary artery of [place] heart without angina pectoris Atrial fibrillation ([facility]) Primary hypertension Unspecified essential hypertension [facility] in this encounter [facility]* Diagnosis Diabetic polyneuropathy associated with type 2 diabetes mellitus ([facility])- Primary Encounter for orthopedic aftercare following surgical amputation Other abnormalities of gait and mobility Restless leg syndrome Restless legs syndrome (RLS) documented in this encounter [facility]* Diagnosis 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 ([facility])- Primary Poor circulation Unspecified circulatory system disorder Heavy tobacco smoker >10 cigarettes per day 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 ([facility])- Primary Cigarette smoker motivated to quit 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 ([facility] Primary Cigarette smoker Tobacco use disorder History of right below knee amputation ([facility])- Primary documented in this encounter [facility]* Diagnosis Encounter for orthopedic aftercare following surgical amputation- Primary Cigarette smoker Tobacco use disorder Diabetic polyneuropathy associated with type 2 diabetes mellitus ([facility]) Other abnormalities of gait and mobility Muscle spasm Spasm of muscle documented in this encounter [facility]* Diagnosis PAD (peripheral artery disease) ([facility] Primary Unspecified peripheral vascular disease documented in this encounter [facility]* Diagnosis Encounter for orthopedic aftercare following surgical amputation- Primary Other abnormalities of gait and mobility BPH with obstruction/lower urinary tract symptoms Diabetic polyneuropathy associated with type 2 diabetes mellitus ([facility]) Atherosclerosis of [place] coronary artery of [place] heart without angina pectoris Heart failure, unspecified HF chronicity, unspecified heart failure type ([facility] Primary hypertension Unspecified essential hypertension Peripheral arterial disease ([facility] Unspecified peripheral vascular disease Chronic obstructive pulmonary disease, unspecified COPD type ([facility] Gastroesophageal reflux disease, unspecified whether esophagitis present Muscle weakness (generalized) documented [facility] this encounter [facility] Author Mike Burleson [facility] Note Date/Time April 23, 2024 1:50pm [facility] [address] [place], [place] [id number] Gastroenterology H&P Signed Patient: Myra Pickard SR MR#: [id number] : 1965 Acct:[id number] Age/Sex: 58 / M Adm Date: 4 Loc: Room: Type: [facility] Attending Dr: Mike Burleson MD Copies to: DO Mike Guzman MD~ Date of Service: 04/23/2024 HISTORY & PHYSICAL: Patient's history with special attention to the cardiovascular, pulmonary systems and the current problem was reviewed with the patient immediately prior to the procedure. Present medications and doses reviewed in the EMR. Allergies and pertinent laboratory tests were also reviewedat this time in the EMR. The physical examination, as below, was then performed. Indication, assessment and HPI: 58-year-old male presents for EGD to evaluate abnormal imaging findings Family history of GI malignancy? no PHYSICAL EXAMINATION Mouth and Pharynx : moist mucus membranes, normal dentition Eyes: EOM intact b/l, normal sclera Pulmonary: normal respiratory effort, able to speak in complete sentences Neurological: alert and oriented x3, moves all extremities Skin: non-jaundiced, warm and dry Abdomen: non-distended, normal to inspection Psych: Mental status and mood grossly normal REVIEW OF SYSTEMS Constitutional: Denies malaise, fevers Cardiovascular: Denies chest pain, palpitations Respiratory: Denies shortness of breath, wheezing Gastrointestinal: Per HPI Genitourinary: Denies dysuria, polyuria Musculoskeletal: Denies joint swelling, joint stiffness Neurological: Denies numbness, tingling Integumentary: Denies rashes, skin lesions Endocrine: Denies fatigue, weight loss Written informed consent obtained from the patient. Risks (including but not limited to perforation, infection, bloating, bleeding, need for emergent surgeryand loss of life), benefits and alternatives explained and questions answered. The patient verbalized understanding. Based on history patient is an appropriate candidate for the procedure. Mike Burleson MD Documented By: Mike Burleson MD 04/23/24 0840 Signed By: <Electronically signed by Mike Burleson MD> 04/23/24 8237 [facility] Work Phone: History general Narrative - [...] repair 08/2016 Surgical History cardiac cath [facility] 04/02/18 Surgical History Lt LE iliac DSA, angioplasty & stenting 09/27/2018 Surgical History Left Angiogram with one stent - Dr. Boss 07/2020 Hospitalization History Deep Depression, Anxiety; [facility] 11-11-10 Hospitalization History [facility] hypoxemia and hyper capnic respirtory failure 11/11/16 Hospitalization History chest pain [facility] 04/02/18 [facility] Other History of Present illness NarrativeReturns in [...] impact on blood pressure and diabetes were reviewed-[facility] 250 DO Work Phone: History of Present [...] medication regimen. He denies medication side effects. [facility] 600 DO Work Phone: History of [...] medication regimen. He denies medication side effects. [facility] 250 DO Work Phone: Hospital course Narrative No data available for this section [facility] Discharge instructions No data available for this section [facility] InstructionsNot on filedocumented in this encounter [facility] [...] available for this section [facility] Chief Complaint MYRA PICKARD is being seen for a 9 month follow-up of.* Routine f/u: 'I have been getting so tired' * MYRA PICKARD is being seen for a 6 [...] 'best I felt in a while' * MYRA PICKARD is being seen for a 1 [...] By Contac t Referred To Contact Diagnoses 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) Procedures Vas art doppler lwr bilat mult lev/PVR Mike Montes MD [address], [address] [address] Referral ID Status Reason Start Date Expiration Date V isits Requested Visits Authorized [id number] Pending Review 10/18/2023 10/17/2024 1 1 Specialty Diagnoses / Procedures Referred By Contac t Referred To Contact Radiology Diagnoses 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) Procedures CT angiogram abdominal aorta with runoff Mike Montes MD [address], [address] [address] Referral ID Status Reason Start Date Expiration Date V isits Requested Visits Authorized [id number] Pending Review 10/18/2023 10/17/2024 1 1 Referral ID Status Reason Start Date Expiration Date V isits Requested Visits Authorized [id number] Pending Review 10/18/2023 10/17/2024 1 1 Referral ID Status Reason Start Date Expiration Date V isits Requested Visits Authorized [id number] Pending Review 10/18/2023 10/17/2024 1 1 Specialty Diagnoses / Procedures Referred By Contac t Referred To Contact Cardiology Diagnoses Shortness of breath Procedures Transthoracic Echo Complete NV ECHO TTHRC R-T 2D W/WOM-MODE COMPL SPEC&COLR D Bernard De La Cruz MD [address] [place] [address] [address], [address] [address] Referral ID Status Reason Start Date Expiration Date Visits Requested Visits Authorized [id number] Authorized Perform Procedure 01/01/2024 12/31/2024 1 1 Specialty Diagnoses / Procedures Referred By Contac t Referred To Contact Diagnoses Encounter for pre-operative cardiovascular clearance Procedures ECG 12 Lead aVnessa Inman MD [address] [place] [address] 2, [address] [address] Referral ID Status Reason Start Date Expiration Date V isits Requested Visits Authorized [id number] Authorized 10/24/2023 10/23/2024 1 1 Specialty Diagnoses / Procedures Referred By Contac t Referred To Contact Cardiology Diagnoses History of PTCA Procedures Follow Up In Cardiology Vanessa Inman MD [address] [place] [address] [address], [address] [address] Referral ID Status Reason Start Date Expiration Date V isits Requested Visits Authorized [id number] Authorized 10/24/2023 10/23/2024 1 1 Reason CANCELLED consult and treat; previous patient of Dr. Sharpe last seen in 2020; persisting intractable headaches Diagnosis 1 Acute intractable he adache, unspecified headache type (R51.9) [facility] Referring Provider First Name Teresa Referring Provider Last Name Rory Referring Provider Specialty Family [place] Referred Organization [facility] Referred Provider Lyssa Sharpe Referred Address [address] [place],[address] Referred Provider Specialty Neurology Referral Priority Routine General Notes [facility] 023 10:19:08 AM >Received today. [facility] request us to fill out their form and attach to Referral and send it to them and they will call patient to schedule. Referral was sent P2P and fax insurance card since it would not let me attach to referral [facility] 07/28/2022 10:23:53 AM >Spoke with Marilynn at [facility] and patient has been scheduled and cancelled the appt for 07/26/22 [facility] 07/28/2022 10:27:39 AM >Telephone encounter was sent Reason 03/31/22 @ 2:45pm consult and treat Diagnosis 1 Type 2 diabetes bobby itus with circulatory disorder (E11.59) Referral Organization [facility] Referring Provider First Name Teresa Referring Provider Last Name Rory Referring Provider Specialty Family [place] Referred Organization [facility] Referred Provider Doris Barnes Referred Address [address] Mukul,[facility] F,[place] Referred Provider Specialty Nurse Jono calderon Referral Priority Routine Referral Appointment Date 2022-03-31 General Notes [facility] 022 02:28:10 PM >Received today and sent P2P [facility] 02/16/2022 07:50:21 AM >Patient has [...] on imaging GERD (gastroesophageal reflux disease) Diabetes Chief Complaint Admit Date Amb Documentation January 24, 2024 12 :28pm Lightheaded March 04, 2024 6:01pm Lightheaded March 05, 2024 9: 32am Altered / Change Mental Status March 082023 6:49pm Altered / Change Mental Status March 092023 11:03am Altered / Change Mental Status March 102023 11:25am discuss for EGD/Abnormal imaging March 21, 2024 10:27am Amb Documentation March 29, 2024 1 0:31am hosp follow up April 04, 2024 1 :13pm Amb Documentation April 19, 2024 1:58pm iron def anemia April 23, 2024 12:20pm iron def anemia April 23, 2024 1:49pm Reason for Visit Admit Date Anemia March 04, 2024 6:01pm Atrial fibrillation March 04, 2024 6:01pm Chronic back pain March 04, 2024 6:01pm Cigarette nicotine dependenc e with nicotine-induced disorder March 04, 2024 6:01pm Diabetic nephropathy associa jorge with secondary diabetes mellitus March 04, 2024 6:01pm GERD (gastroesophageal reflux disease) S eptember 2023 6:01pm Hyperlipidemia March 04, 2024 6:01pm Restless legs syndrome March 04, 2 024 6:01pm CAD (coronary artery disease) March 04, 2024 6:01pm Chronic kidney disease March 04, 2 024 6:01pm Hypertension March 04, 2024 6:01pm Syncope March 04, 2024 6:01pm Diabetes March 04, 2024 6:01pm Altered mental status March 08, 2024 6:49pm Anemia March 08, 2024 6: 49pm GERD (gastroesophageal reflux disease) O ctober 2023 6:49pm LFT elevation March 08, 2024 6: 49pm Restless legs syndrome March 08, 2024 6:49pm Syncope March 08, 2024 6: 49pm Hyperbilirubinemia March 08, 2024 6: 49pm Hypothermia March 08, 2024 6: 49pm Abnormal finding on imaging March 10:27am GERD (gastroesophageal reflux disease) O ctober 2023 10:27am Altered mental status April 04, 2024 1:13pm Chronic obstructive pulmonary disease, u nspecified April 04, 2024 1:13pm Diabetes April 04, 2024 1 :13pm Encounter for medication review and coun seling April 04, 2024 1:13pm Erectile dysfunction April 04, 2024 1:13pm Gastric wall thickening April 04 1:13pm GERD (gastroesophageal reflux disease) O ctober 2023 1:13pm Gout April 04, 2024 1 :13pm 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 April 04, 2024 1:13pm Hyperlipidemia April 04, 2024 1 :13pm Peripheral vascular disease March 1:13pm Screening for prostate cancer April 042023 1:13pm Chief Complaint Admit Date Lightheaded March 04, 2024 6:01pm Lightheaded March 05, 2024 9: 32am Altered / Change Mental Status March 082023 6:49pm Altered / Change Mental Status March 092023 11:03am Altered / Change Mental Status March 102023 11:25am discuss for EGD/Abnormal imaging March 21, 2024 10:27am Amb Documentation March 29, 2024 1 0:31am hosp follow up April 04, 2024 1 :13pm Amb Documentation April 19, 2024 1:58pm iron def anemia April 23, 2024 12:20pm iron def anemia April 23, 2024 1:49pm Ref Jamar R BKA definitive eval No vember 2023 10:58am Advance Directives Advance Directive Response Recorded Date/ Time Advance Directives No June 09, 2017 5:49pm Advance Directive Response Recorded Date/ Time Advance Directives No June 09, 2017 4:49pm Date Activated Date Inactivated Comments 11/07/2023 4:31 PM Date Activated Date Inactivated Comments 11/07/2023 [...] pre-operative cardiovascular clearance Procedures ECG 12 Lead Vanessa Inman MD [address] [facility] [address] [place] [address] Referral ID Status Reason Start Date Expiration Date V isits Requested Visits Authorized [id number] Authorized 10/24/2023 10/23/2024 1 1 Specialty Diagnoses / Procedures Referred By Contac t Referred To Contact Cardiology Diagnoses Shortness of breath Procedures Transthoracic Echo Complete NV ECHO TTHRC R-T 2D W/WOM-MODE COMPL SPEC&COLR D Bernard De La Cruz MD [address] [facility] [address] [place] [address] Referral ID Status Reason Start Date Expiration Date Visits Requested Visits Authorized [id number] Authorized Perform Procedure 01/01/2024 12/31/2024 1 1 Reason Comments New Patient Poor Circulation - R eferral from Dr. Soto - No appt available in [place] until 11/02/2023; patient is having right leg and foot pain at a 10 right now since surgery 2 weeks ago Specialty Diagnoses / Procedures Referred By Contac t Referred To Contact Vascular Surgery Diagnoses Poor circulation Paula Soto, DPM [address] [place] [address] [facility] [address] [place] [address] Referral ID Status Reason Start Date Expiration Date Visits Requested Visits Authorized [id number] Pending Review Specialty Services Required 10/13/2023 10/12/2024 1 1 Reason Comments Critical limb ischemia of ri ght lower extremity with gangre Follow up on testing completed in [facility] t Check insession Reason Comments Angioplasty RLE follow up - procedure at [facility]. 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 AT [facility] Incision w ith toshia, well approximated Care Teams (unrecognized sec tion and content) Team Status: Active Member Role Status Dates Teresa Lynch DO Primary Care Provider Active Team [...] Team Status: Active Member Role Status Dates Mike Montes MD Attending Provider Active S tart: February 01, 2024 Team Status: Active Member Role Status Dates Teresa Lynch DO Attending Provider Active Start: February 08, 2024 Team Status: Inactive Member Role Status Dates Kait Dan MD Emergency Provider Active Start: March 04, 2024 End: March 06, 2024 Teresa Lynch DO Primary Care Provider Active Sta [...] Emergency Provider Active Start: March 05, 2024 Teresa Lynch DO Primary Care Provider Active Sta rt: March 05, 2024 João Powell MD Admit Provider, Other Provider Activ e Start: March 05, 2024 Lyssa Sharpe MD Other Provider Active Start : March 05, 2024 Mike Burleson MD Attending Provider, Other Provider Active Start: March 05, 2024 Team Status: Inactive Member Role Status Dates Teresa Lynch DO Primary Care Provider Active Sta rt: March 08, 2024 End: March 13, 2024 Bonilla Rubin DO Emergency Provider Active Sta rt: March 08, 2024 End: March 13, 2024 João Powell MD Admit Provider Active Start: O ct2023 End: March 13, 2024 Luther Dozier DO [...] Team Status: Active Member Role Status Dates Teresa Lynch DO Primary Care Provider Active Sta rt: March 09, 2024 Bonilla Rubin DO Emergency Provider Active Sta rt: March 09, 2024 João Powell MD Admit Provider, Other Provider Activ e Start: March 09, 2024 Luther Dozier DO Other Provider Active Start: March 09, 2024 Job James MD Attending Provider, Other Provider Active Start: March 09, 2024 Team Status: Active Member Role Status Dates Teresa Lynch DO Primary Care Provider Active Sta rt: March 10, 2024 Bonilla Rubin DO Emergency Provider Active Sta rt: March 10, 2024 João Powell MD Admit Provider, Other Provider Activ e Start: March 10, 2024 Luthre Dozier DO Other Provider Active Start: March 10, 2024 Job James MD Other Provider Active Start: March 10, 2024 Mike Burleson MD Attending Provider, Other Provider Active Start: March 10, 2024 Team Status: Inactive Member Role Status Dates Teresa Lynch DO Primary Care Provider Active Sta [...] Emergency Provider Active Start: March 03, 2024 Teresa Lynch DO Primary Care Provider Active Sta rt: March 03, 2024 João Powell MD Admit Provider, Atte nding Provider Active Start: March 03, 2024 Team Status: Inactive Member Role Status Dates Teresa Lynch DO Primary Care Provider Active Shana Mclaughlin PA-C Attending Provider Active Team Status: Inactive Member Role Status Dates Teresa Lynch DO Primary Care Provider Active Teresa Lynch DO CHC Attending Provider Active Team Status: Inactive Member Role Status Dates Teresa Lynch DO Primary Care Provider Active Sta rt: July 12, 2023 End: July 12, 2023 Nancy Wilson MD Emergency Provider Active St art: July 12, 2023 End: July 12, 2023 Team Status: Active Member Role Status Dates Teresa Lynch DO Primary Care Provider Active Sta rt: July 26, 2023 ASHLI Escobar Attending Provider Active Start: July 26, 2023 Team Status: Active Member Role Status Dates Teresa Lynch DO Primary Care Provider Active Sta rt: July 31, 2023 Shana Mclaughlin PA-C Attending Provider, Referring Provider Active Start: July 31, 2023 Team Status: Active Member Role Status Dates Teresa Lynch DO Primary Care Provide r, Attending Provider Active Start: August 03, 2023 Team Status: Active Member Role Status Dates Teresa Lynch DO Primary Care Provide r, Attending Provider Active Start: August 04, 2023 Team Status: Active Member Role Status Dates Teresa Lynch DO Primary Care Provide r, Attending Provider Active Start: August 05, 2023 Team Status: Active Member Role Status Dates Teresa Lynch DO Primary Care Provide r, Attending Provider Active Start: August 06, 2023 Team Status: Active Member Role Status Dates Teresa Lynch DO Primary Care Provide r, Attending Provider Active Start: August 07, 2023 Team Status: Active Member Role Status Dates Teresa Lynch DO Primary Care Provider Active Sta rt: August 08, 2023 Syl Kaplan LPN Attending Provider Active Sta rt: August 08, 2023 Team Status: Active Member Role Status Dates Teresa Lynch DO Primary Care Provide r, Attending Provider Active Start: August 10, 2023 Team Status: Active Member Role Status Dates Teresa Lynch DO Primary Care Provide r, Attending Provider Active Start: September 18, 2023 Team Status: Inactive Member Role Status Dates Teresa Lynch DO Primary Care Provider Active Sta rt: September 21, 2023 End: September 21, 2023 Paula Soto DPM MS Attending Provider Active Start: September 21, 2023 End: September 21, 2023 Team Status: Active Member Role Status Dates Teresa Lynch DO Primary Care Provide r, Attending Provider Active Start: September 21, 2023 Team Status: Active Member Role Status Dates Teresa Lynch DO Primary Care Provider Active Sta rt: September 27, 2023 Tangela Zavala LPN Attending Provider Active St art: September 27, 2023 Team Status: Active Member Role Status Elda Lynch DO Primary Care Provider Active Sta rt: September 30, 2023 Chandrika Castanon PA-C Attending Provider Active Start : September 30, 2023 Team Status: Active Member Role Status Dates Teresa Lynch DO Primary Care Provider Active Sta [...] Team Status: Active Member Role Status Dates Teresa Lynch DO Primary Care Provider Active Sta [...] Provider Active Sta rt: October 06, 2023 Color Maker Dyer Relationship Specialty Start Date End Date Teresa Lynch DO PCP - General 04/17/19 Team Status: Active Member Role Status Dates Fely Nguyen DO Attending Provider Active Start: November 15, 2023 Team Status: Active Member Role Status Dates Hernan Crook Attending Provider Active Start: November 26, 2023 Team Status: Active Member Role Status Dates Teresa Lynch DO Primary Care Provider Active Sta rt: March 08, 2024 Bonilla Rubin DO Emergency Provider Active Sta rt: March 08, 2024 João Powell MD Admit Provider, Atte nding Provider Active Start: March 08, 2024 Team Status: Active Member Role Status Dates Teresa Lynch DO Primary Care Provider Active Sta rt: March 29, 2024 Syl Kaplan LPN Attending Provider Active Sta rt: March 29, 2024 Team Status: Inactive Member Role Status Dates Teresa Lynch DO Primary Care Provide r, Attending Provider Active Start: April 04, 2024 End: April 04, 2024 Team Status: Active Member Role Status Elda Lynch DO Primary Care Provider Active Sta rt: April 19, 2024 Cat Byrd LPN Attending Provider Active Sta rt: April 19, 2024 Team Status: Inactive Member Role Status Dates Teresa Lynch DO Primary Care Provider Active Sta rt: April 23, 2024 End: April 23, 2024 Mike Burleson MD Attending Provider Active S tart: April 23, 2024 End: April 23, 2024 Team Status: Active Member Role Status Dates Teresa Lynch DO Primary Care Provider Active Sta rt: April 23, 2024 Mike Burleson MD Attending Provider, Other Provider Active Start: April 23, 2024 Team Status: Inactive Member Role Status Dates Teresa Lynch DO Primary Care Provider Active Sta rt: April 24, 2024 End: April 24, 2024 Negro Hu MD Attending Provider Active Star t: April 24, 2024 End: April 24, 2024 Color Maker Dyer Relationship Specialty Start Date End Date Teresa Lynch DO PCP - General 04/17/19 Namita Mercer LPN Care Fieldwork Coordinator 12/25/23 Color Maker Dyer Relationship Specialty Start Date End Date Teresa Lynch MD [address] [place] [phone] PCP - External PCP 03/05/23 Goals (unrecognized section and content) Goals may [...] content) DATE CREATED AUTHOR [facility]/11/2022 [facility] DATE CREATED AUTHOR AUTHOR'S ORGANIZ ATION 01/27/2023 [facility] DATE CREATED AUTHOR AUTHOR'S ORGANIZ ATION 02/16/2023 [facility] DATE CREATED AUTHOR AUTHOR'S ORGANIZ ATION 02/16/2023 [employer] DATE CREATED AUTHOR AUTHOR'S ORGANIZ ATION 10/22/2023 [facility] DATE CREATED AUTHOR AUTHOR'S ORGANIZ ATION 11/16/2023 [facility] DATE CREATED AUTHOR AUTHOR'S ORGANIZ ATION 11/25/2023 [facility] DATE CREATED AUTHOR AUTHOR'S ORGANIZ ATION 01/10/2024 [facility] DATE CREATED AUTHOR AUTHOR'S ORGANIZ ATION 01/22/2024 [facility] DATE CREATED AUTHOR AUTHOR'S ORGANIZ ATION 02/13/2024 [facility] DATE CREATED AUTHOR AUTHOR'S ORGANIZ ATION 02/14/2024 [facility] DATE CREATED AUTHOR AUTHOR'S ORGANIZ ATION 02/15/2024 [facility] DATE CREATED AUTHOR AUTHOR'S ORGANIZ ATION 02/16/2024 [facility] DATE CREATED AUTHOR AUTHOR'S ORGANIZ ATION 02/17/2024 [facility] DATE CREATED AUTHOR AUTHOR'S ORGANIZ ATION 02/18/2024 [facility] DATE CREATED AUTHOR AUTHOR'S ORGANIZ ATION 02/19/2024 [facility] DATE CREATED AUTHOR AUTHOR'S ORGANIZ ATION 02/20/2024 [facility] DATE CREATED AUTHOR AUTHOR'S ORGANIZ ATION 02/21/2024 [facility] DATE CREATED AUTHOR AUTHOR'S ORGANIZ ATION 02/22/2024 [facility] DATE CREATED AUTHOR AUTHOR'S ORGANIZ ATION 02/23/2024 [facility] DATE CREATED AUTHOR AUTHOR'S ORGANIZ ATION 02/24/2024 [facility] DATE CREATED AUTHOR AUTHOR'S ORGANIZ ATION 03/14/2024 [facility] DATE CREATED AUTHOR AUTHOR'S ORGANIZ ATION 05/29/2024 [facility] DATE CREATED AUTHOR AUTHOR'S ORGANIZ ATION 06/15/[address] [facility] DATE CREATED AUTHOR AUTHOR'S ORGANIZ ATION 06/15/2024 [facility] DATE CREATED AUTHOR AUTHOR'S ORGANIZ ATION 07/07/2024 [facility] FOR RECORDS PERTAINING TO PATIENTS WHO [...] BE BASED ON THE PRIMARY CLINICAL RECORDS. [facility] provides no warranty or guarantee of the accuracy or completeness of information in this document.
[2024-07-24 20:50] LABS: Basophils Absolute Auto 0.1 10^3/uL (0.0-0.1); Basophils Percent Auto 1.1 % (0.2-2.0); Eosinophils Absolute Auto 0.4 10^3/uL (0.0-0.7); Eosinophils Percent Auto 3.7 % (0.9-7.0); Hematocrit 37.6 % (42.0-54.0); Hemoglobin 11.1 g/dL (14.0-18.0); Immature Granulocytes Abs Auto 0.03 10^3/uL (0.00-0.03); Immature Granulocytes Pct Auto 0.3 % (0.0-0.5); Lymphocytes Absolute Auto 2.1 10^3/uL (1.2-3.8); Lymphocytes Percent Auto 20.9 % (20.5-60.0); Mean Corpuscular HGB Conc 29.5 g/dL (29.9-35.2); Mean Corpuscular Hemoglobin 21.5 pg (25.9-34.0); Mean Corpuscular Volume 72.7 fL (80.0-94.0); Monocytes Percent Auto 9.7 % (1.7-12.0); Neutrophils Absolute Auto 6.3 10^3/uL (1.4-6.5); Neutrophils Percent Auto 64.3 % (43.0-75.0); Platelet Count 214 10^3/uL (150-450); Red Blood Count 5.17 10^6/uL (4.70-6.10); Red Cell Distribution Width 19.1 % (11.0-15.0); White Blood Count 9.9 10^3/uL (4.0-11.0)
[2024-07-24] MEDS: HYDROMORPHONE HCL 1 MG/ML CARTRIDGE IV (20:56)
[2024-07-24] MEDS: ONDANSETRON PF 4 MG/2 ML VIAL IV (20:56)
[2024-07-24 21:03] LABS: Alanine Aminotransferase 16 U/L (16-63); Albumin Globulin Ratio 0.9; Albumin Level 3.3 g/dL (3.4-5.0); Alkaline Phosphatase 111 U/L (46-116); Anion Gap 14.1; Aspartate Amino Transferase 11 U/L (15-37); BUN Creatinine Ratio 9.6; Bilirubin Total 0.4 mg/dL (0.2-1.0); Calcium 8.4 mg/dL (8.5-10.1); Carbon Dioxide 26.3 mmol/L (21.0-32.0); Chloride 102 mmol/L (98-107); Estimated GFR (African America 36 (>=60 mL/min/1.73m^2); Estimated GFR (Non-African Ame 30 (>=60 mL/min/1.73m^2); Globulin 3.7 g/dL; Glucose 177 mg/dL (74-106); Potassium 3.4 mmol/L (3.5-5.1); Sodium 139 mmol/L (136-145)
[2024-07-24 21:07] LABS: Lactate/Lactic Acid 1.8 mmol/L (0.4-2.0)
--- NOTE | 2024-07-24 21:08 | PC.NURSE ---
this patient's arrives and in the room urine collected and sent to lab dept
--- NOTE | 2024-07-24 21:09 | PC.NURSE ---
this patient complains of scrotum pain onset tonight around 07:00 pm while home sitting downn eating
--- NOTE | 2024-07-24 21:15 | PC.NURSE ---
ListRunner just walked into this patient's room
[2024-07-24 21:36] LABS: Bilirubin Urine NEGATIVE (NEGATIVE); Blood Urine NEGATIVE (NEGATIVE); Clarity Urine CLEAR (CLEAR); Color Urine LT. YELLOW (YELLOW); Glucose Urine UA >=1000 mg/dL (NEGATIVE); Ketones Urine NEGATIVE (NEGATIVE); Leukocyte Esterase Urine NEGATIVE (NEGATIVE); Nitrite Urine NEGATIVE (NEGATIVE); Protein Urine NEGATIVE (NEG/TRACE); Specific Gravity Urine <=1.005 (1.005-1.025); Urobilinogen Urine 0.2 EU/dL (0.2-1.0); pH Urine 6.5 (5.0-9.0)
[2024-07-24 21:43] LABS: Sperm Urine SEEN
[2024-07-24 21:49] LABS: Bacteria Urine TRACE #/HPF (NONE SEEN); Crystals Seen? None Seen #/HPF (None Seen); Mucus Urine NONE SEEN (NONE SEEN); RBC Urine NONE SEEN #/HPF (0-2); Squamous Epithelial Cell Urine RARE #/LPF (NONE/RARE); WBC Urine 0-2 #/HPF (NONE SEEN)
[2024-07-24 21:50] LABS: Cast Seen? NONE SEEN #/LPF (NONE SEEN); Urine Culture Indicated NO
--- NOTE | 2024-07-24 21:59 | PC.NURSE ---
this patient awake and alert sitting upright on the bed talking to his , who is at bedside. i informed this patient since ultra sound is complete, ct will be next. this patient voices no concerns and shows no signs of distress
--- NOTE | 2024-07-24 23:47 | PC.NURSE ---
i gave this patient verbal and written discharge orders along with 1 e-script, and this patient voices yes to understanding these. at time of discharge this patient voices no concerns and shows no signs of distress
== END 2024-07-24 23:49 | disposition home or self-care (01) ==
PROVIDERS: Physician Assistant; Emergency Provider Emergency Medicine; PCP Family Medicine
DX: B35.6 Tinea cruris (principal); N50.82 Scrotal pain; R10.2 Pelvic and perineal pain; F17.200 Nicotine dependence, unspecified, uncomplicated; N43.3 Hydrocele, unspecified; I86.1 Scrotal varices; L53.9 Erythematous condition, unspecified; N50.3 Cyst of epididymis; K59.00 Constipation, unspecified
CPT/HCPCS: 36415; 74176; 76870; 80053; 81001; 83605; 85025; 96374; 96375; 99285; J1171; J2405

== ENCOUNTER 2024-12-15 08:56 | Inpatient (IN) | payer MEDICAID, SELFPAY ==
--- OUTSIDE RECORDS SUMMARY | 2024-05-15 04:09 | XMS_ITS ---
Author Organization [facility] in [place] Address [address] [place] [address] Care Team Providers Care Cso Name Role Phone Jenaro Valadez DO Primary Care Provider Franklin Esparza [phone] REASON FOR VISIT no call no show Encounters Encounter Location Date Provider Diagnosis Pulmonary Medicine [place] [address] [place] [address] 05/15/2024 Franklin Bonilla Plan Of Treatment No Information Progress Notes * Solomon FELDMAN SrDOB: [birth year] (58 yo M)Acc No.[id number]:05/15/2024 Patient: Camille AIKENSolomon Sr :1965 A ge:58 Y S ex:Male Address:[address] [place] [address] , [address], [place], [address] * true * Date: Generated for Ezequiel dailey/Derek/eTransmitting on: 0 12/15/2024 09:04 AM EDT
--- OUTSIDE RECORDS SUMMARY | 2024-06-24 12:08 | XMS_ITS ---
Author Organization [facility] in [place] Address [address] [place] [address] Care Team Providers Care Tube Sorter Name Role Phone Jenaro Valadez DO Primary Care Provider Franklin Esparza [phone] REASON FOR VISIT Appointment Reschedule Encounters Encounter Location Date Provider Diagnosis Pulmonary Medicine [place] [address] [place] [address] 06/24/2024 Franklin Bonilla Plan Of Treatment No Information Progress Notes * Solomon FELDMAN SrDOB: [birth year] (58 yo M)Acc No.[id number]:06/24/2024 Patient: Camille AIKENSolomon Sr :1965 A ge:58 Y S ex:Male Address:[address] [place] [address] , [address], [place], [address] * true * Date: Generated for Ezequiel dailey/Derek/eTransmitting on: 0 12/15/2024 09:02 AM EDT
--- OUTSIDE RECORDS SUMMARY | 2024-07-10 04:00 | XMS_ITS ---
Author Organization [facility] in [place] Address [address] [place] [address] Care Team Providers Care Wallpaper Scraper Name Role Phone Jenaro Valadez DO Primary Care Provider Franklin Esparza Unavailable [phone] REASON FOR VISIT 1 year F/U Encounters Encounter Location Date Provider Diagnosis Pulmonary Medicine [place] [address] [place] [address] 07/10/2024 Franklin Bonilla Plan Of Treatment No Information Progress Notes * Solomon FELDMAN SrDOB: [birth year] (59 yo M)Acc No.[id number]:07/10/2024 UNLOCKED PROGRESS NOTE Follow Up Patient: Camille AIKEN Solomon Daniel Sr Provider: Emerson Bonilla DO :1965 A ge:58 Y S ex:Male Date:07/10/2024 Address:[address] [place] [address] , [address], [place], [id number] Pcp:Jenaro Valadez DO Subjective: * Chief Complaints: * 1 . 1 year F/U. * Medical History: Objective: * Vitals: Assessment: Plan: * Treatment: * * Electronic signature of Lizbeth Bonilla DO on 12/15/2024 at 09:03 AM EDT Sign off status: Pending Visit Status: O FF CANC (OFFICE CANCEL) * Provider: Emerson Bonilla DO Date: 0 07/10/2024 Generated for Ezequiel dailey/Derek/Nevinsmitting on: 0 12/15/2024 09:03 AM EDT
[2024-12-15 09:02] VITALS: BP 133/75; PULSE 76; TEMP 36.8; O2SAT 99; BMI 28.2
--- OUTSIDE RECORDS SUMMARY | 2024-12-15 09:03 | XMS_ITS | Encounter Summary ---
Author Organization [facility] Address [address] [place] [address] Phone Care Team Providers Care Motorcycle Police Name Role Phone Jenaro Valadez DO Primary Care Provider [phone] Jenaro Valadez DO Unavailable Namita Mercer ADZING AND BORING MACHINE OPERATOR Unavailable Jenaro Valadez DO Primary Care Provider Encounter Details Date Type Department Care Team (Late st Contact Info) Description 09/27/2022 Orders Only [facility] [address] [place] [address] Conversion, Onbase Social History Tobacco Use Types Packs/Day Years Used Date Smoking Tobacco: Never Assessed Sex and Gender Information Value Date Recorded Sex Assigned at Not on file Legal Sex Male 1:33 AM EST Gender Identity Not on file Sexual Orientation Not on file documented as of this encounter Plan of Treatment Upcoming Encounters Date Type Department Care Team (Late st Contact Info) Description 12/18/2024 8:00 AM EDT Appointment [address] [phone] 12/18/2024 8:30 AM EDT Appointment [place] [id number] [address] 12/18/2024 9:00 AM EDT Appointment [address] [address] 12/18/2024 9:30 AM EDT Appointment [facility] [address] [facility] [address] [place] [phone] 12/18/2024 9:45 AM EDT Appointment [facility] [address] [facility] [address] [place] [address] 12/24/2024 10:00 AM EDT Office Visit [place] [address] [place] [phone] Oumar Sandoval MD [address] [facility] [address] [place], [place] [id number] Scheduled Orders Name Type Priority Associated Diagnoses Orde r Schedule OUTSIDE LAB SCAN Lab Ordered: 09/27/2022 documented as of this encounter Visit Diagnoses Not on filedocumented in this encounter Care Teams Motorcycle Police Relationship Specialty Start Date End Date Jenaro Valadez DO PCP - General 04/17/19 11/03/24 Jenaro Valadez DO [address] [place] [address] PCP - Talha ACO PCP 06/05/2110/02 Jenaro Valadez DO [address] [place] [address] PCP - General Family Medicine 11/04/24 Namita Mercer, ADZING AND BORING MACHINE OPERATOR Land PlannerTherapist Asst 12/25/23 02/22/24 documented as of this encounter
--- OUTSIDE RECORDS SUMMARY | 2024-12-15 09:03 | XMS_ITS | Encounter Summary ---
Author Organization [employer] Address [id number] [address] [place] [address] Care Team Providers Care Sharepoint Web Developer Name Role Phone Unavailable Primary Care Provider Unavailabl e Encounter Details Date Type Department Care Team (Late st Contact Info) Description 01/26/2024 Telephone [facility] [address] [place] [address] [phone] Padmini Montes MD [address], [facility] [address] [place] [address] Social History Tobacco Use Types Packs/Day Years Used Date Smoking Tobacco: Every Day Cigarettes 1 43.2 Started: 10/05/1981 Smokeless Tobacco: Never Alcohol Use Standard Drinks/Week Comments Not Currently 0 (1 standard drink = 0.6 oz pur e alcohol) [facility] Utilities Answer Date Recorded In the past 12 months has e electric, gas, oil, or water company threatened to shut off services in your home? No 11/07/2023 AUDIT-C Answer Date Recorded Q1: How often do you have a drink containing alc ohol? 2-4 times a month 11/07/2023 Q2: How many drinks containi ng alcohol do you have on a typical day when you are drinking? 1 or 2 11/07/2023 Q3: How often do you have si x or more drinks on one occasion? Never 11/07/2023 PHQ-2 Answer Date Recorded Total Score 0 11/07/2023 PRAPARE - Transportation Answer Date Re corded In the past 12 months, has l ack of transportation kept you from medical appointments or from getting medications? No 09/2023 In the past 12 months, has l ack of transportation kept you from meetings, work, or from getting things needed for daily living? No 11/07/2023 Housing Instability Answer Date Recorde d Are you worried or concerned that in the next two months you may not have stable housing that you own, rent or stay in as a part of a household? No 11/07/2023 Childcare Answer Date Recorded Childcare Unknown 11/12/2018 Employment Answer Date Recorded Employment Unknown 11/12/2018 Hunger Screening Answer Date Recorded Within the past 12 months we worried whether our food would run out before we got money to buy more. Never True 01/18/2024 Within the past 12 months th e food we bought just didn't last and we didn't have money to get more. Never True 01/18/2024 Sex and Gender Information Value Date Recorded Sex Assigned at Not on file Legal Sex Male 1:04 PM EDT Gender Identity Not on file Sexual Orientation Not on file documented as of this encounter Miscellaneous Notes * Telephone Encounter - Augustina Aburto - 01/26/2024 2:06 PM EDT Patient spouse called and she wanted to no if Dr Montes could called in a prescription for Pain Medication to [facility] in [place] [phone] patient phone # * Telephone Encounter - Lay Vang LPN - 01/26/2024 2:06 PM EDT Pain medication was given on the day of sx for norco and it was a hand written prescription. Patients called to inform that she can not find norco at any of the [facility] locations. Furnace Checker recommendedshe [facility] or another pharmacy outside of [facility] that way she can take the script to pharmacy. Patients is satisfied with plan. documented in this encounter Plan of Treatment Upcoming Encounters Date Type Department Care Team (Late st Contact Info) Description 01/02/2025 11:50 AM EDT [facility] [place] [address] [place] [address] Padmini Montes MD [address], [address] [place] [address] documented as of this encounter Goals Goal Patient Goal Type Associated Problems Recent Progress Patient-Stated? Author Patient is planning to transition back to SNF at discharge. General Yes Chandrika Quiñonez, INSTRUCTOR SUBSTITUTE [employer]METOLOGY Note: Evaluation of progress towards goal: Patient is planning to transition back to SNF at discharge. documented as of this encounter Visit Diagnoses Not on filedocumented in this encounter Additional Health Concerns Assessment Noted Time PHQ-9 Depression Total Score: 0 11/07/19 24 8:40 PM EDT documented as of this encounter
--- OUTSIDE RECORDS SUMMARY | 2024-12-15 09:03 | XMS_ITS | Encounter Summary ---
Author Organization [facility] Address [address] [place] [address] Phone Care Team Providers Care Vascular Surgeon Name Role Phone Jenaro Valadez DO Primary Care Provider [phone] Namita Mercer SHAKER OUT Unavailable Jenaro Valadez DO Primary Care Provider [phone] Encounter Details Date Type Department Care Team (Late st Contact Info) Description 02/15/2023 Scanned Document [facility] LE[facility] [address] [place] [address] Conversion, Onbase Social History Tobacco Use Types [...] Info) Description 12/18/2024 8:00 AM EDT Appointment [address] [address] 12/18/2024 8:30 AM EDT Appointment [address] [address] 12/18/2024 9:00 AM EDT Appointment [address] [address] 12/18/2024 9:30 AM EDT Appointment [facility] [address] [facility] [address] [place] [phone] 12/18/2024 9:45 AM EDT Appointment [facility] [address] [facility] [address] [place] [address] 12/24/2024 10:00 AM EDT Office Visit [address] [place] [phone] Oumar Sandoval MD [address] [facility] [address] [place] [address] documented as of this encounter Visit Diagnoses Not on filedocumented in this encounter Care Teams Vascular Surgeon Relationship Specialty Start Date End Date Jenaro Valadez DO PCP - General 04/17/19 11/03/24 Jenaro Valadez DO [address] [place] [address] PCP - General Family Medicine 11/04/24 Namita Mercer, GÉNESIS [employer] RepairerRehabilitation Aide 12/25/23 02/22/24 documented as of this encounter
--- OUTSIDE RECORDS SUMMARY | 2024-12-15 09:03 | XMS_ITS | Clinical Summary ---
Author Organization [facility] s [facility] Address [id number] [address] [place] [address] Care Team Providers Care Track Repair Laborer Name Role Phone Unavailable Primary Care Provider Unavailabl e Allergies Active Allergy Reactions Criticality Noted Date Comments Acetaminophen Vomiting Low 07/31/2023 Other Reaction(s): Vomiting Isosorbide Dinitrate Other (See Comments) Low 08/04 Headache Latex Dermatitis,Itching,R jeannette Low 03/27/2023 Oxycodone-Acetaminophen 03/14/2017 Penicillins Anaphylaxis,Hives High 11/04/2013 Propoxyphene 03/14/2017 Darvocet Medications aspirin 81 mg Take 1 tablet (81 mg total) by mouth in the morning. 10/06/19 24 Active atorvastatin (LIPITOR) 80 mg tablet Take 1 tablet (80 mg total) by mouth in the morning. 10/06/19 24 Active amitriptyline (ELAVIL) 25 mg tablet Take 1 tablet (25 mg total) by mouth nightly. 09/03/19 24 Active clopidogreL (PLAVIX) 75 mg tablet Take 1 tablet (75 mg total) by mouth in the morning. Active glimepiride (AMARYL) 2 mg tablet Take 1 tablet (2 mg total) by mouth in the morning and 1 tablet (2 mg total) before bedtime. Active isosorbide mononitrate (IMDUR) 30 mg 24 hr tablet Take 1 tablet (30 mg total) by mouth daily. Active metFORMIN (GLUCOPHAGE) 1000 mg tablet Take 1 tablet (1,000 mg total) by mouth every 12 (twelve) hours. Active nitroglycerin (NITROSTAT) 0.[address] 1 tablet (0.4 mg total) under the tongue every 5 (five) minutes as needed for chest pain. Active omeprazole (PriLOSEC) 40 mg capsule Take 1 capsule (40 mg total) by mouth in the morning. Active rOPINIRole (REQUIP) 1 mg tablet Take 1 tablet (1 mg total) by mouth 3 (three) times a day. Active AJOVY AUTOINJECTOR 225 mg/1.5 mL Inject 1.5 mL (225 mg total) under the skin every 30 (thirty) days. 07/18/19 24 Active empagliflozin (JARDIANCE) 10 mg tablet tablet Take 1 tablet (10 mg total) by mouth in the morning. Active SITagliptin phosphate (JANUVIA) 100 mg tablet Take 1 tablet (100 mg total) by mouth in the morning. Active ONETOUCH ULTRA2 METER misc 1 Unit by subconjunctival route in the morning. 08/17/19 24 Active ONETOUCH ULTRA TEST strip 1 strip by other route every morning before breakfast. 08/16/19 24 Active albuterol (PROVENTIL HFA;VENTOLIN HFA) 90 mcg/actuation inhaler Inhale 2 puffs in the morning and 2 puffs before bedtime. Active ubrogepant 100 mg tablet Take 100 mg by mouth daily as needed. Active tiotropium (SPIRIVA WITH HANDIHALER) 18 mcg per inhalation capsule Place 1 capsule (18 mcg total) into inhaler and inhale once daily. 11/24/19 23 Active DULoxetine (CYMBALTA) 60 mg capsule Take 1 capsule (60 mg total) by mouth in the morning. Active ferrous sulfate 325 (65 FE) mg tablet Take 1 tablet (325 mg total) by mouth in the morning. Active ONETOUCH DELICA PLUS LANCET 33 gauge misc Inject 1 strip under the skin in the morning and 1 strip before bedtime. 08/16/19 24 Active acetaminophen (TYLENOL EXTRA STRENGTH) 500 mg tablet Take 2 tablets (1,000 mg total) by mouth every 8 (eight) hours as needed for pain or fever. Active albuterol (PROAIR HFA) 90 mcg/actuation inhaler Inhale 2 puffs every 4 (four) hours as needed. 11/24/19 23 Active tamsulosin (FLOMAX) 0.4 mg capsule Take 1 capsule (0.4 mg total) by mouth in the morning and at bedtime. 06/26/19 24 Active tiZANidine (ZANAFLEX) 4 mg capsule Take 1 capsule (4 mg total) by mouth 3 (three) times a day as needed for muscle spasms. 11/24/19 23 Active pregabalin (LYRICA) 200 mg capsule Take 1 capsule (200 mg total) by mouth 3 (three) times a day. 09/28/19 24 Active dulaglutide 0.75 mg/0.5 mL pen injector Inject 0.5 mL (0.75 mg total) under the skin once a week. 07/12/19 24 Active Active Problems Problem Noted Date Diagnosed Date Altered mental status 03/15/2024 Anemia 03/15/2024 Atrial fibrillation 03/15/2024 Cigarette nicotine dependenc e with nicotine-induced disorder 03/15/2024 Syncope 03/15/2024 Chronic back pain 03/15/2024 Encounter for orthopedic aft ercare following surgical amputation 02/28/2024 Muscle spasm 02/28/2024 Cigarette smoker 01/18/2024 Assessment & Plan (01/18/2024 9:04 AM EDT): Counseled him on smoking cessation at length. He is willing to quit. Symptomatic hypotension 01/01/2024 Diabetic polyneuropathy asso ciated with type 2 diabetes mellitus 11/24/2023 Chest pain in adult 11/10/2023 Chronic kidney disease 11/10/2023 Crescendo angina 11/10/2023 Diabetic nephropathy associa jorge with secondary diabetes mellitus 11/10/2023 Dyslipidemia 11/10/2023 Leg edema 11/10/2023 Arthritis 10/30/2023 Fibromyalgia 10/30/2023 Overview (10/30/2023): Will need to get back off opioids Encourage use of tylenol and pregabalin Neck pain 10/30/2023 Head ache 10/30/2023 Gross hematuria 10/30/2023 Heart attack 10/30/2023 Heart murmur 10/30/2023 Hydrocele 10/30/2023 Asthma 10/30/2023 Urinary retention 10/30/2023 Muscle weakness (generalized) 10/30/2023 Other abnormalities of gait and mobility 024 Peripheral arterial disease 10/30/2023 Atherosclerosis of pechanga co ronary artery of pechanga heart without angina pectoris 10/06/2023 Pyogenic inflammation of bone 10/06/2023 Chronic obstructive pulmonary disease 10/06/2023 Cigarette smoker motivated to quit 10/06/2023 Assessment & Plan (11/30/2023 9:19 AM EDT): Counseled on smoking cessation for at least 3 minutes Assessment & Plan (10/18/2023 8:52 AM EDT): Counseled in length willing to quit. BPH with obstruction/lower urinary tract symptom s 10/06/2023 Gastroesophageal reflux disease 10/06/2023 Restless leg syndrome 10/06/2023 Heart failure 10/06/2023 Migraine 06/14/2023 Polyneuropathy 10/27/2020 Carpal tunnel syndrome, right upper limb 021 Paresthesia and pain of both upper extremities 0 09/22/2020 Overview (03/15/2024): Last Assessment & Plan: *06/14/2023 Shana Mclaughlin Patient with paresthesia, cramps, weakness, and contracture of the bilateral hands that has been occurring for the past 4 year after being in a coma for renal failure. The symptoms have progressively worsened over time. In addition the patient has sensory loss of the lower extremities upon exam reportedly occurring for the past several years as well. EMG of the bilateral upper extremities 09/29/20 which revealed a remote C8 radiculopathy on the right and median neuropathies that are mild in degree electrically. EMG of the bilateral lower extremities 10/05/20 revealed a polyneuropathy that was severe in degree electrically. A superimposed S1 radiculopathy could not be excluded. He is a diabetic. Labs from 11/2020 revealed glucose of 322. ESR was elevated at 29 and CRP at 2.0. B12 was 198 and MMA was elevated at 609. He has had carpal tunnel intervention twice in the past and has also done OT. His neuropathic pain persists despite Lyrica and amitriptyline increase. He did have falls last fall when he was septic due to urinary issues. Paresthesia of bilateral legs 09/22/2020 Mixed hyperlipidemia 07/17/2015 Overview (10/30/2023): Cont home atorva Sleep apnea 08/04/2014 Hypertension 11/05/2013 Overview (10/30/2023): Continue home amlodipine 10mg QD Metoprolol 50mg bid Lisinopril on hold Monitor BP regularly Resolved Problems Problem Noted Date Diagnosed Date Resolved Date Delayed surgical wound heali ng of foot amputation stump 11/08/2023 02/28/2024 Pressure ulcer of right ankle, stage 3 11/08/2023 02/28/2024 Critical limb ischemia of ri ght lower extremity with gangrene 10/18/2023 02/28/2024 Assessment & Plan (01/18/2024 9:03 AM EDT): Right below-knee amputation. Will do it here at [facility]. Assessment & Plan (12/21/2023 8:57 AM EDT): We did iliofemoral endarterectomy and femoral above-knee bypass. He has some residual tibial occlusive disease. I discussed with him doing right lower extremity angiogram and intervention. Will do this close to home at [facility]. Assessment & Plan (10/18/2023 8:32 AM EDT): PVR and CTA abdomen and plevis with runoff Abscess of right foot 10/06/20232023 Status post partial amputation of right foot 02/28/2024 Type 2 diabetes mellitus wit h stage 4 chronic kidney disease, without long-term current use of insulin 10/06/2023 11/24/2023 Bacterial sepsis 10/06/2023 10/10/2023 Immunizations Immunization Administration Dates Next Due Influenza, Im Trivalent Preservative 01/14/2019 Influenza, Injectable, quadrivalent (PF) 018,03/07/2016 Influenza, Unspecified 01/14/2019 Pneumococcal Polysaccharide 02/22/2016 Social History Tobacco Use Types Packs/Day Years Used Date Smoking Tobacco: Every Day Cigarettes 1 43.2 Started: 10/05/1981 Smokeless Tobacco: Never Tobacco Cessation:Ready to Q uit: Not Asked; Counseling Given: Not Answered Alcohol Use Standard Drinks/Week Comments Not Currently 0 (1 standard drink = 0.6 oz pur e alcohol) [facility] Utilities Answer Date Recorded In the past 12 months has th e electric, gas, oil, or water company [...] got money to buy more. Never True 02/29/2024 Within the past 12 months th e food we bought just didn't last and we didn't have money to get more. Never True 02/29/2024 Sex and Gender Information Value Date Recorded Sex Assigned at Not on file Legal Sex Male 1:04 PM EDT Gender Identity Not on file Sexual Orientation Not on file Last Filed Vital Signs Vital Sign Reading Time Taken Comments Blood Pressure 124/78 03/19/2024 5:26 PM EDT Pulse 85 03/19/2024 5:26 PM EDT Temperature 36.7 C (98 F) 03/19/2024 5:26 PM EDT Respiratory Rate 19 03/19/2024 5:26 PM EDT Oxygen Saturation 96% 03/19/2024 5:26 PM EDT Inhaled Oxygen Concentration - - Weight 89.4 kg (197 lb 3.2 oz) 03/15/2024 6:27 P M EDT Height 182.9 cm (6') 02/29/2024 9:27 AM EDT Body Mass Index 26.75 02/29/2024 9:27 AM EDT Plan of Treatment Upcoming Encounters Date Type Department Care Team (Late st Contact Info) Description 01/02/2025 11:50 AM EDT Office Visit [facility] [place] [address] [place] [address] Padmini Montes MD [address], [address] [address] Health Maintenance Due Date Last Done Comments Diabetic Ophthalmology Exam 1965 Adult BMI Follow Up Plan 1983 Diabetic Foot Exam 1983 DTaP,Tdap and Td Vaccines (1 - Tdap) 1984 Zoster (Shingles) Vaccine (1 of 2) 2015 COVID-19 Vaccine (3 - 2023-2 5 season) 2024 11/13/2020, 10/23/2020 Depression Screening 11/06/2024 11/07/2023 Influenza Vaccine 02/03/2025 01/14/2019, , 04/02/2018, Additional history exists Tobacco Screening 02/28/2025 02/29/2024 Adult BMI Screening 03/15/2025 03/15/2024 Tobacco Counseling 04/26/2025 10/25/2023 Goals Goal Patient Goal Type Associated Problems Recent Progress Patient-Stated? Author Patient is planning to transition back to SNF at discharge. General Yes Chandrika Quiñonez LSW Note: Evaluation of progress towards goal: Patient is planning to transition back to SNF at discharge. Medical Devices Implanted Type Area Metal Wire Coating Operator Device Identifier Shelf Expiration Date Model / Serial / Lot Graft Vsc 50cm 6mm [place] Thnwl Hep Propaten Ptfe Rem Rng - [id number] - [id number] Implanted:Qty : 1 on 11/08/2023 by Padmini Montes MD at [facility] Graft Right: Arterial [place] 08/21/2026 [id number] / [id number] / Description:RIGHT FEMORAL AR COREY Stent Vsc Epic 10mm 100mm 120cm 6fr Rdpq Otw Slf Xpd Gw - [id number] Implanted:Qty : 1 on 11/07/2023 by Padmini Montes MD at [facility] Stent [employer] I [id number] 09/23/2028 [id number] / / [id number] Insurance MEDICAID [place] Advance Directives * Full Code (Latest Code Status on File) Date Activated Date Inactivated Comments 11/07/2023 4:31 PM 11/14/2023 9:31 PM
--- OUTSIDE RECORDS SUMMARY | 2024-12-15 09:03 | XMS_ITS | Encounter Summary ---
Author Organization [facility] Address [address] [place] [address] Phone Care Team Providers Care Rate Clerk Passenger Name Role Phone Jenaro Valadez DO Primary Care Provider [phone] Namita Mercer PAINT MIXER Unavailable Jenaro Valadez DO Primary Care Provider [phone] Encounter Details Date Type Department Care Team (Late st Contact Info) Description 01/25/2023 Scanned Document [facility] LEGACY [address] [place] [address] Conversion, Onbase Social History Tobacco Use Types [...] Info) Description 12/18/2024 8:00 AM EDT Appointment [address] [address] 12/18/2024 8:30 AM EDT Appointment [address] [address] 12/18/2024 9:00 AM EDT Appointment [address] [phone] 12/18/2024 9:30 AM EDT Appointment [facility] [address] [facility] [address] [place] [phone] 12/18/2024 9:45 AM EDT Appointment [facility] [address] [facility] [address] [place] [phone] 12/24/2024 10:00 AM EDT Office Visit [place] [address] [place] [address] Oumar Sandoval MD [address] [facility] [address] [place] [address] documented as of this encounter Procedures Procedure Name Priority Date/Time Associated Diagnosis Comments CARDIAC STRESS TEST 01/25/2023 documented in this encounter Results * CARDIAC STRESS TEST (01/25/2023) Narrative 01/25/2023 Ordered by an unspecified provider. us Onbase Conversion CV STRESS PROCEDURES Final Res ult documented in this encounter Visit Diagnoses Not on filedocumented in this encounter Care Teams Rate Clerk Passenger Relationship Specialty Start Date End Date Jenaro Valadez DO PCP - General 04/17/19 11/03/24 Jenaro Valadez DO [address] [place] [address] PCP - General Family Medicine 11/04/24 Namita Mercer, GÉNESIS Automotive Title ClerkCupola Liner 12/25/23 02/22/24 documented as of this encounter
--- OUTSIDE RECORDS SUMMARY | 2024-12-15 09:03 | XMS_ITS | Encounter Summary ---
Author Organization [facility] Address [address] [place], [place] [id number] Care Team Providers Care Mail Inserter Name Role Phone Jenaro Valadez DO Primary Care Provider [phone] Robert Zamora MD Unavailable Franklin Link DO Unavailable [phone] Jenaro Valadez DO Primary Care Provider [phone] Carlos A Bolanos Unavailable [phone] Carlos A Bolanos Unavailable [phone] Source Comments In the event this information is protected by the Federal Confidentiality of Alcohol and Drug AbusePatient Records regulations: The Federal rules restrict any use of the information to criminally investigate or prosecute any alcohol or drug abuse patient.[facility] Encounter Details Date Type Department Care Team (Late st Contact Info) Description 09/18/2014 Patient Msg Medical Records [address] [place], [place] [id number] Provider, [facility] sleep study needing to be scheduled Social History Tobacco Use Types Packs/Day Years Used Date Smoking Tobacco: Every Day Cigarettes 0.5 47.1 Started: 11/18/1977 Smokeless Tobacco: Former Quit: 11/04/2013 Alcohol Use Standard Drinks/Week Comments No 0 (1 standard drink = 0.6 oz pur e alcohol) Sex and Gender Information Value Date Recorded Sex Assigned at Not on file Legal Sex Male 9:56 AM ALESHA Gender Identity Not on file Sexual Orientation Not on file Occupation Industry Job Start Date Job End Date Retired Not on file Not on file Not on file documented as of this encounter Functional Status * Are you deaf or do you have serious difficulty hearing? Answer Date of Assessment Author No 08/04/2014 10:01 AM Marybel Antonio Ma * Are you blind or do you have serious difficulty seeing, even when wearing glasses? Answer Date of Assessment Author No 08/04/2014 10:01 AM Marybel Antonio Ma * Do you have serious difficulty walking or climbing stairs? Answer Date of Assessment Author Yes 08/04/2014 10:01 AM Marybel Antonio Ma * Do you have difficulty dressing or bathing? Answer Date of Assessment Author No 08/04/2014 10:01 AM Marybel Antonio Ma * Because of a physical, mental, or emotional condition, do you have difficulty doing errands alone such as visiting a doctor's office or shopping? Answer Date of Assessment Author No 08/04/2014 10:01 AM Marybel Antonio Ma documented as of this encounter Mental Status * Because of a physical, mental, or emotional condition, do you have serious difficulty concentrating, remembering, or making decisions? Answer Entry Date Author No 08/04/2014 10:01 AM Mayrbel Antonio Ma documented in this encounter Plan of Treatment Not on file documented as of this encounter Visit Diagnoses Not on filedocumented in this encounter Care Teams Mail Inserter Relationship Specialty Start Date End Date Jenaro Valadez DO [address] [place] [address] PCP - General Family Medicine 10/30/13 10/25/16 Jenaro Valadez DO [address] [place] [address] PCP - General Family Medicine 10/26/16 Robert Zamora MD [address] [place] [address] Primary Staff Physician Cardiology 09/03/14 6 Franklin Link DO [address] [place] [address] Referring Orthopedics 10/26/16 Carlos A Bolanos [address] [place] [address] Primary Staff Physician Cardiology 08/21/18 Carlos A Bolanos [address] [place] [address] Primary Staff Physician Cardiology 08/21/18 documented as of this encounter
--- OUTSIDE RECORDS SUMMARY | 2024-12-15 09:03 | XMS_ITS | Patient Health Record ---
Author Organization [facility] in [place] Address [address] [place] [address] Care Team Providers Care Litigation Attorney Name Role Phone Jenaro Valadez DO Primary Care Provider Sheri Villaseñor Unavailable [phone] Franklin Bonilla Unavailable [phone] Allergies Allergen (clinical drug ingredient) Drug/Non Drug Allergy documented on EMR Reaction Allergy Type Onset Date Status Latex Latex hives Allergy Active Penicillin shortness of breath Drug Allergy Active Results Component Value Reference Range Notes PROF 14(COMP METB) Reviewed date:12/24/2023 05:05:46 PM Interpretation: Performing Lab: Notes/Report: [facility] , Sodium 136 136-145 mmol/L Potassium 4.4 3.5-5.1 mmol/L Chloride 103 98-107 mmol/L Carbon Dioxide 23.4 21.0-32.0 mmol/L Anion Gap 14.0 Glucose 357 74-106 mg/dL Blood Urea Nitrogen 30.0 7.0-18.0 mg/dL Creatinine 1.88 0.70-1.30 mg/dL Estimated GFR ( Tiffany 45 >=60 Estimated GFR (Non- Laura 37 >=60 BUN Creatinine Ratio 16.0 Calcium 7.4 8.5-10.1 mg/dL Bilirubin Total 0.2 0.2-1.0 mg/dL Aspartate Amino Transferase 10 15-37 U/L Alanine Aminotransferase 13 16-63 U/L Alkaline Phosphatase 127 46-116 U/L Total Protein 5.5 6.4-8.2 g/dL Albumin Level 2.2 3.4-5.0 g/dL Globulin 3.3 Albumin Globulin Ratio 0.7 Performing Lab: see note ML - [facility] LB MAGNESIUM Reviewed date:12/24/2023 05:05:46 PM Interpretation: Performing Lab: Notes/Report: [facility] , Magnesium 1.5 1.8-2.4 mg/dL Performing Lab: see note - [facility] LB CBC AUTO DIFF Reviewed date:12/24/2023 05:05:46 PM Interpretation: Performing Lab: Notes/Report: [facility] , White Blood Count 13.3 4.0-11.0 10 3/uL Red Blood Count 2.84 4.70-6.10 10 6/uL Hemoglobin 7.1 14.0-18.0 g/dL Hematocrit 23.6 42.0-54.0 % RESULTS CALLED TO JOHNNY BOUDREAUX RN Mean Corpuscular Volume 83.1 80.0-94.0 fL Mean Corpuscular Hemoglobin 25.0 25.9-34.0 pg Mean Corpuscular HGB Conc 30.1 29.9-35.2 g/dL Red Cell Distribution Width 16.4 11.0-15.0 % Platelet Count 373 150-450 10 3/uL Mean Platelet Volume 10.3 9.5-13.5 fL Neutrophils Percent Auto 77.3 43.0-75.0 % Lymphocytes Percent Auto 15.7 20.5-60.0 % Monocytes Percent Auto 4.7 1.7-12.0 % Eosinophils Percent Auto 1.0 0.9-7.0 % Basophils Percent Auto 0.4 0.2-2.0 % Immature Granulocytes Pct Auto 0.9 0.0-0.5 % Neutrophils Absolute Auto 10.3 1.4-6.5 10 3/uL Lymphocytes Absolute Auto 2.1 1.2-3.8 10 3/uL Monocytes Absolute Auto 0.6 0.3-0.8 10 3/uL Eosinophils Absolute Auto 0.1 0.0-0.7 10 3/uL Basophils Absolute Auto 0.1 0.0-0.1 10 3/uL Immature Granulocytes Abs Auto 0.12 0.00-0.03 10 3/uL Performing Lab: see note - [facility] LB Urine Culture, Routine Reviewed date:12/24/2023 05:05:46 PM Interpretation: Performing Lab: Notes/Report: [facility] , Urine Culture, Routine See Below For Report Urine Culture, Routine Urine Culture, Routine Culture shows les s than 10,000 colony forming units of bacteria per Urine Culture, Routine Urine Culture, Routine milliliter of uri ne. This colony count is not generally considered Urine Culture, Routine Urine Culture, Routine to be clinically significant. Urine Culture, Routine Urine Culture, Routine Performed at: [facility] Urine Culture, Routine Urine Culture, Routine [address] [place], [place] [id number] Urine Culture, Routine Urine Culture, Routine Visitor Services Associate: Uriel Borrero PhD, Phone: [phone] Urine Culture, Routine Performing Lab: see note LC - [facility] LB SEE REPORT - Chemistry Faculty Member Id information not found for OBX-specific email producer legend UA RANDOM W or MICROSCOPIC Reviewed date:12/24/2023 05:05:46 PM Interpretation: Performing Lab: Notes/Report: [facility] , Color Urine LT. YELLOW YELLOW Clarity Urine CLEAR CLEAR Specific Larsen Urine <=1.005 1.005-1.025 pH Urine 6.5 5.0-9.0 Protein Urine NEGATIVE NEG/TRACE mg/dL Glucose Urine UA >=1000 NEGATIVE mg/dL Bilirubin Urine NEGATIVE NEGATIVE Ketones Urine NEGATIVE NEGATIVE mg/dL Blood Urine NEGATIVE NEGATIVE Nitrite Urine NEGATIVE NEGATIVE Urobilinogen Urine 0.2 0.2-1.0 EU/dL Leukocyte Esterase Urine NEGATIVE NEGATIVE WBC Urine 0-2 NONE SEEN #/HPF RBC Urine 0-2 0-2 #/HPF Bacteria Urine NONE SEEN NONE SEEN #/HPF Mucus Urine NONE SEEN NONE SEEN Squamous Epithelial Cell Urine NONE SEEN NONE/RARE #/LPF Crystals Seen? None Seen None Seen #/HPF Cast Seen? NONE SEEN NONE SEEN #/LPF Performing Lab: see note ML - [facility] LB PROF CHEM 8 (BAS METB) Reviewed date:12/24/2023 05:05:46 PM Interpretation: Performing Lab: Notes/Report: [facility] , Sodium 129 136-145 mmol/L Potassium 4.8 3.5-5.1 mmol/L Chloride 95 98-107 mmol/L Carbon Dioxide 21.7 21.0-32.0 mmol/L Anion Gap 17.1 Glucose 683 74-106 mg/dL RESULTS CALLED TO MedSurg Sheryl Feldman, RN Blood Urea Nitrogen 27.0 7.0-18.0 mg/dL Creatinine 2.80 0.70-1.30 mg/dL Estimated GFR ( Tiffany 28 >=60 Estimated GFR (Non- Laura 23 >=60 BUN Creatinine Ratio 9.6 Calcium 7.2 8.5-10.1 mg/dL Performing Lab: see note ML - [facility] Reason For Referral No Information Medications Medication SIG (Take, Route, Frequency, Duration) Notes Start Date End Date Status Prevnar 20 0.5 ML as directed Intramuscular 2022 Active Pregabalin 200 MG Oral for 30 Days Active Albuterol Sulfate HFA 108 (90 Base) MCG/ACT 2 puffs as needed for SOB Inhalation every 4 hrs for 90 02/15/2023 Active Sildenafil Citrate 100 MG TAKE 1 TABLET BY MOUTH DAILY NEEDED Oral for 30 Days Active rOPINIRole HCl 1 MG Oral for 90 Days Active Aspirin Low Dose 81 MG Oral for 90 Days Active Symbicort 160-4.5 MCG/ACT 2 puffs Inhalation BID for 90 days Rinse after use Active Amitriptyline HCl 100 MG TAKE 1 TABLET B Y MOUTH EVERYDAY AT BEDTIME Oral for 30 days Active Spiriva Respimat 2.5 MCG/ACT INHALE 2 PUFFS BY MOUTH ONCE DAILY Inhalation for 90 days Active Clopidogrel Bisulfate 75 MG Oral for 90 Days Active Atorvastatin Calcium 80 MG TAKE 1 TABLET BY MOUTH EVERY DAY Oral for 90 Days Activ e Omeprazole 40 MG Oral for 90 Days Active Nitroglycerin 0.4 MG DISSOLVE 1 TABLET U NDER TONGUE NEEDED FOR CHEST PAIN.MAY REPEAT EVERY 5 MINUTES X3. Sublingual for 30 Days Active oxyCODONE-Acetaminophen 5-325 MG 1 tablet as needed Orally every 6 hrs for 5 days 01/15/2024 Active OXcarbazepine 300 MG Oral for 30 Days Active Isosorbide Mononitrate ER 30 MG Oral for 30 Days Active HYDROcodone-Acetaminophen 5-325 MG TAKE 1 TABLET BY MOUTH EVERY 12 HOURS NEEDED Oral for 3 Days Active Jardiance 10 MG Oral for 90 Days Active Januvia 100 MG Oral for 90 Days Active metFORMIN HCl 1000 MG Oral for 90 Days Active Latanoprost 0.005 % Ophthalmic for 90 Days Active Metoprolol Tartrate 100 MG TAKE 1/2 TABL ET BY MOUT TWICE DAILY Oral for 90 Days Active Tamsulosin HCl 0.4 MG 1 capsule Orally O nce a day Active diazePAM 5 MG Oral for 30 Days Active Trulicity 1.5 MG/0.5ML Subcutaneous for 28 Days Active tiZANidine HCl 4 MG Oral for 30 Days Active Glimepiride 2 MG Oral for 90 Days Active Divalproex Sodium 250 MG TAKE 1 TABLET B Y MOUTH EVERY DAY AT BEDTIME FOR 30 DAYS Oral for 30 Days Active Valsartan-hydroCHLOROthiaz alix 160-12.5 MG TAKE 1 TABLET BY MOUTH EVERY DAY FOR 90 DAYS Oral for 90 Days Active Immunizations Vaccine Route Administration Date Status Comme nts Pneumococcal (Pneumovax 23) Unknown 02/22/2016 Administ ered SARS-COV-2 (COVID 19 Pfizer 30mcg/0.3mL) Unknown 11/13/2020 Administered Social History Tobacco Use: Social History Observation Description Date Details (start date - stop date) Former Smoker NA - NA Tobacco Control (Standard) Question Answer Notes Tobacco use: Former smoker How long has it been since y ou last smoked? 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 (Z79.51) Active confirmed Problem Coronary artery disease (14611844) CAD (coronary artery disease) (I25.10) Active confirmed Problem Obstructive sleep apnea syndrome (72238388) JADEN (obstructive sleep apnea) (G47.33) Active confirmed Problem Dementia (36542912) Dementia (F03.90) Active confirmed Problem Acute exacerbation of chronic obstructive airways disease (748522218) COPD exacerbation (J44.1) Active confirmed Problem Diabetes mellitus type 2 (disorder) (10597362) DM2 (diabetes mellitus, type 2) (E11.9) Active confirmed Problem Non-pressure chronic ulcer of right heel and midfoot with necrosis of bone (L97.414) Active confirmed Problem Iron deficiency anemia (56964380) Anemia, iron deficiency (D50.9) Active confirmed Problem Multiple pulmonary nodules (597469153) Multiple pulmonary nodules (R91.8) Active confirmed Problem Ex-tobacco user (finding) (188241786) History of tobacco abuse (Z87.891) Active confirmed Problem Chronic obstructive pulmonary disease (31134210) Advanced COPD (J44.9) Active confirmed Problem Chronic ulcer of right heel (3877160996931464 2) Chronic ulcer of right heel (L97.419) Active confirmed Problem Amputation stump pain (T87.89) Active confirmed Problem Leukocytosis (140616807) Elevated WBCs (D72.829) Active confirmed Problem History of lung lobectomy (situation) (9587512962327913 3) 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) Active confirmed Problem Essential hypertension (09812045) BP (high blood pressure) (I10) Active confirmed Problem Acute osteomyelitis of ankle and/or foot (545015842) Acute osteomyelitis of right ankle (M86.171) Active confirmed Problem Acute osteomyelitis of ankle and/or foot (013670753) Acute osteomyelitis of metatarsal bone of right foot (M86.171) Active confirmed Problem Non-pressure chronic ulcer of right heel and midfoot with muscle involvement without evidence of necrosis (L97.415) Active confirmed Problem Non-pressure chronic ulcer of other part of right foot with muscle involvement without evidence of necrosis (L97.515) Active confirmed Problem Non-pressure chronic ulcer of other part of left foot with other specified severity (L97.528) Active confirmed Problem Diabetic renal disease (524944096) 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) Active confirmed Problem Type II diabetes mellitus without complication (575553746) Diabetes (E11.9) Active confirmed Problem Diabetes mellitus (53199182) Diabetes mellitus (E11.9) Active confirmed Problem Chronic kidney disease stage 4 (361777217) Acute worsening of stage 4 chronic kidney disease (N18.4) Active confirmed Problem Chronic ulcer of right foot (disorder) (6148433566578543 0) Chronic ulcer of right foot with fat layer exposed (L97.512) Active confirmed Problem Polyneuropathy due to type 2 diabetes mellitus (520382714) 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) Active confirmed Encounters Encounter Location Date Provider Diagnosis [facility] [place] [address] [place] [address] 12/19/2023 Franklin Bonilla [facility] (PODIATRY) [address] [place] [address] [place] [address] 01/15/2024 Sheri Hansen [facility] [place] [address] [place] [address] 02/13/2024 Franklin [facility] [place] [address] [place] [address] 05/15/2024 Franklin [facility] [place] [address] [place] [address] 06/24/2024 Franklin Bonilla Plan Of Treatment Pending Test Test Name Order Date AFB Specimen Processing 10/02/2023 Acid Fast Smear 10/02/2023 Acid Fast Culture 10/02/2023 Fungus Stain 10/02/2023 Future Test Test Name Order Date CT Chest Low Dose for Screening* 024 Insurance Providers Payer Name Payer Address Payer Phone Subscriber Number Group Number Insured Name Patient Relationship to Insured Coverage Start Date Coverage End Date [employer] [place] [employer] [address] [place] [address] [id number] Solomon Feldman Self - patient is the insured 4 [place] ONLY [address] [place], [place] [id number] Solomon Feldman Self - patient is the insured 4 4 Medical (General) History Medical History History ICD Code Centrilobular emphysema J43.2 JADEN (obstructive sleep apnea) G47.33 HTN (hypertension) I10 Hyperlipidemia E78.5 RLS (restless legs syndrome) G25.81 PAD (peripheral artery disease) I73.9 CAD (coronary artery disease) I25.10 DM2 (diabetes mellitus, type 2) E11.9 Multiple pulmonary nodules R91.8 BPH (benign prostatic hyperplasia) N40.0 senior living (current) use of inhaled stero ids Z79.51 History of tobacco abuse Z87.891 Surgical History Surgery Date(Month/Year) cataract removal appendectomy carpal tunnel release Cardiac Stent Placement-2015 & 2016 vascular stent placement-left leg
--- OUTSIDE RECORDS SUMMARY | 2024-12-15 09:03 | XMS_ITS | Encounter Summary ---
[id number] [address] 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 ([facility]) Social History Tobacco Use Types Packs/Day Years Used Date Smoking Tobacco: Every Day Cigarettes 1 43.2 Started: 10/05/1981 Smokeless Tobacco: Never Alcohol Use Standard Drinks/Week Comments Not Currently 0 (1 standard drink = 0.6 oz pur e alcohol) [facility] Utilities Answer Date Recorded In the past 12 months has e electric, gas, oil, or water [employer] threatened to shut off services in your [...] Description 01/02/2025 11:50 AM EDT Office Visit [facility] [place] [address] [place] [address] Padmini Montes MD [address], [address] [address] documented as of this encounter Goals Goal Patient Goal Type Associated Problems Recent Progress Patient-Stated? Author Patient is planning to transition back to SNF at discharge. General Yes Chandrika Quiñonez LSW Note: Evaluation of progress towards goal: Patient is planning to transition back to SNF at discharge. 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
--- OUTSIDE RECORDS SUMMARY | 2024-12-15 09:03 | XMS_ITS | Encounter Summary ---
Author Organization [facility] Address [address] [place] [address] Care Team Providers Care Stand In Name Role Phone Jenaro Valadez DO Unavailable Jenaro Valadez DO Primary Care Provider Encounter Details Date Type Department Care Team (Late st Contact Info) Description 03/07/2024 Orders Only [facility] [address] [facility] [address] [place] [address] Luther Dozier DO Social History Tobacco Use Types Packs/Day Years Used Date Smoking Tobacco: Never Assessed Sex and Gender Information Value Date Recorded Sex Assigned at Not on file Legal Sex Male 6:50 PM EDT Gender Identity Not on file Sexual Orientation Not on file documented as of this encounter Plan of Treatment Not on file documented as of this encounter Procedures Procedure Name Priority Date/Time Associated Diagnosis Comments CAROTID ULTRASOUND NEUROLOGY Routine 03/07/2024 10:05 AM EDT documented in this encounter Results * Carotid ultrasound neurology (03/07/2024 10:05 AM EDT) us Luther Dozier DO NEUROLOGY ORDERABLES Final Resul t documented in this encounter Visit Diagnoses Not on filedocumented in this encounter Care Teams Stand In Relationship Specialty Start Date End Date Jenaro Valadez DO PCP - External PCP 03/05/23 Jenaro Valadez DO PCP - General 03/12/24 documented as of this encounter
--- OUTSIDE RECORDS SUMMARY | 2024-12-15 09:03 | XMS_ITS | Encounter Summary ---
Author Organization [facility] Address [id number] [address] [place] [address] Care Team Providers Care Trichologist Name Role Phone Unavailable Primary Care Provider Unavailabl e Encounter Details Date Type Department Care Team (Late st Contact Info) Description 03/21/2024 Telephone [facility] [address] [place] [address] [phone] Urban, Baylee, SURGERY TECH Social History Tobacco Use Types Packs/Day Years Used Date Smoking Tobacco: Every Day Cigarettes 1 43.2 Started: 10/05/1981 Smokeless Tobacco: Never Alcohol Use Standard Drinks/Week Comments Not Currently 0 (1 standard drink = 0.6 oz pur e alcohol) [facility] Utilities Answer Date Recorded In the past 12 months has e [employer], gas, oil, or water company threatened to [...] Description 01/02/2025 11:50 AM EDT Office Visit [facility] [place] [address] [place] [address] Padmini Montes MD [address], [address] [address] documented as of this encounter Goals Goal Patient Goal Type Associated Problems Recent Progress Patient-Stated? Author Patient is planning to transition back to SNF at discharge. General Yes Chandrika Quiñonez, GONZALO Note: Evaluation of progress towards goal: Patient is planning to transition back to SNF at discharge. documented as of this encounter Visit Diagnoses Not on filedocumented in this encounter Additional Health Concerns Assessment Noted Time PHQ-9 Depression Total Score: 0 11/07/19 24 8:40 PM EDT documented as of this encounter
--- OUTSIDE RECORDS SUMMARY | 2024-12-15 09:03 | XMS_ITS | Encounter Summary ---
Author Organization [facility] Address [facility][id number] [address] [place] [address] Care Team Providers Care Forensic Psychiatrist Name Role Phone Unavailable Primary Care Provider Unavailabl e Encounter Details Date Type Department Care Team (Late st Contact Info) Description 01/24/2024 Orders Only [facility] [address] [place] [address] [phone] Padmini Montes MD [address], [facility] [address] [place] [address] Social History Tobacco Use Types Packs/Day Years Used Date Smoking Tobacco: Every Day Cigarettes 1 43.2 Started: 10/05/1981 Smokeless Tobacco: Never Alcohol Use Standard Drinks/Week Comments Not Currently 0 (1 standard drink = 0.6 oz pur e alcohol) [facility] Utilities Answer Date Recorded In the past 12 months has e [employer], gas, oil, or water [employer] threatened to shut off services in your [...] 01/02/2025 11:50 AM EDT Office Visit [facility] [place] [address] [place] [address] Padmini Montes MD [address], [address] [address] documented as of this encounter Goals Goal Patient Goal Type Associated Problems Recent Progress Patient-Stated? Author Patient is planning to transition back to SNF at discharge. General Yes Chandrika Quiñonez, COMMUNICATION PROFESSOR Note: Evaluation of progress towards goal: Patient is planning to transition back to SNF at discharge. documented as of this encounter Procedures Procedure Name Priority Date/Time Associated Diagnosis Comments CT ABDOMEN AND PELVIS W WO CONT Routine 12/09/2023 4:24 PM EDT documented in this encounter Results * CT abdomen and pelvis with and without contrast (12/09/2023 4:24 PM EDT) Anatomical Region Laterality Modality Body, Abdomen, Body Covera N/A Compu jorge Tomography us Padmini Montes MD IMG CT ORDERABLES Final Resul t documented in this encounter Visit Diagnoses Not on filedocumented in this encounter Additional Health Concerns Assessment Noted Time PHQ-9 Depression Total Score: 0 11/07/19 24 8:40 PM EDT documented as of this encounter
--- OUTSIDE RECORDS SUMMARY | 2024-12-15 09:03 | XMS_ITS | Encounter Summary ---
Author Organization [facility] Address [address] [place] [address] Phone Care Team Providers Care Cataract Lens Generator Name Role Phone Jenaro Valadez DO Primary Care Provider [phone] Namita Mercer MAST MAKER Unavailable Jenaro Valadez DO Primary Care Provider [phone] Encounter Details Date Type Department Care Team (Late st Contact Info) Description 01/05/2023 Patient Risk Score [facility] Management [address] [place] [address] Social History Tobacco Use Types Packs/Day Years [...] Info) Description 12/18/2024 8:00 AM EDT Appointment [place] [address] [phone] 12/18/2024 8:30 AM EDT Appointment [place] [address] [address] 12/18/2024 9:00 AM EDT Appointment [place] [address] [phone] 12/18/2024 9:30 AM EDT Appointment [facility] [address] [facility] [address] [place] [phone] 12/18/2024 9:45 AM EDT Appointment [facility] [address] [facility] [address] [place] [address] 12/24/2024 10:00 AM EDT Office Visit [address] [place] [phone] Oumar Sandoval MD [address] [facility] [address] [place] [address] documented as of this encounter Visit Diagnoses Not on filedocumented in this encounter Care Teams Cataract Lens Generator Relationship Specialty Start Date End Date Jenaro Valadez DO PCP - General 04/17/19 11/03/24 Jenaro Valadez [place] [address] PCP - General Family Medicine 11/04/24 Namita Mercer, GÉNESIS Sprinkler HelperE Commerce Architect 12/25/23 02/22/24 documented as of this encounter
--- OUTSIDE RECORDS SUMMARY | 2024-12-15 09:03 | XMS_ITS | Encounter Summary ---
Author Organization [facility] Address [address] [place] [address] Phone Care Team Providers Care Printer Apprentice Name Role Phone Jenaro Valadez DO Primary Care Provider [phone] Namita Mercer SOLUTIONS OPERATOR Unavailable Jenaro Valadez DO Primary Care Provider [phone] Encounter Details Date Type Department Care Team (Late st Contact Info) Description 12/21/2023 Scanned Document [facility] [address] [place] [phone] Scanning, Generic Provider Social History Tobacco Use Types Packs/Day Years Used Date Smoking Tobacco: Former Cigarettes Q uit: 2020 Smokeless Tobacco: Never Alcohol Use Standard Drinks/Week Comments Never 0 (1 standard drink = 0.6 oz [...] Info) Description 12/18/2024 8:00 AM EDT Appointment [address] [address] 12/18/2024 8:30 AM EDT Appointment [address] [address] 12/18/2024 9:00 AM EDT Appointment [facility] [address] [facility] [address] [place] [address] 12/18/2024 9:30 AM EDT Appointment [facility] 703 [facility] [address] [place] [address] 12/18/2024 9:45 AM EDT Appointment [facility] [address]03 [facility] [address] [place] [address] 12/24/2024 10:00 AM EDT Office Visit [place] [address] [place] [address] Omuar Sandoval MD [facility] [address] [place] [address] documented as of this encounter Procedures Procedure Name Priority Date/Time Associated Diagnosis Comments OUTSIDE IMAGING SCAN 12/21/2023 documented in this encounter Results * OUTSIDE IMAGING SCAN (12/21/2023) Anatomical Region Laterality Modality Other Narrative 12/21/2023 Ordered by an unspecified provider. Generic Provider Scanning OUTSIDE SCAN Final Result documented in this encounter Visit Diagnoses Not on filedocumented in this encounter Care Teams Printer Apprentice Relationship Specialty Start Date End Date Jenaro Valadez DO PCP - General 04/17/19 11/03/24 Jenaro Valadez DO [facility] [place] [address] PCP - General Family Medicine 11/04/24 Namita Mercer, GÉNESIS CioDomestic Helper 12/25/23 02/22/24 documented as of this encounter
--- OUTSIDE RECORDS SUMMARY | 2024-12-15 09:03 | XMS_ITS | Encounter Summary ---
Author Organization [facility] Address [address] [place] [address] Care Team Providers Care Electrotype Caster Name Role Phone Jenaro Valadez DO Unavailable Jenaro Valadez DO Primary Care Provider [phone] Encounter Details Date Type Department Care Team (Late st Contact Info) Description 11/02/2023 Clinisync Result Encounter [facility] External Department Unsolicited Padmini Montes MD [address], [place] [id number] Social History Tobacco Use Types Packs/Day Years [...] Name Priority Date/Time Associated Diagnosis Comments CT ANGIO ABD AORTA RUNOFF 11/02/2023 9:54 AM EDT documented in this encounter Results * CT ANGIO ABD AORTA RUNOFF (11/02/2023 9:54 AM EDT) Anatomical Region Laterality Modality Radiographic Zena ging 11/02/2023 9:54 AM EDT Narrative 11/02/2023 9:[address] [facility] [address] [place] [address] [place] Scan Report Signed Patient: MYRA FELDMAN Sr. MR#: [id number] : 1965 Acct:[id number] Age/Sex: 58 / M ADM Date: 11/02/23 Loc: CT Attending Dr: Padmini Montes M.D. Ordering Physician: Padmini Montes M.D. Date of Service: 11/02/23 Procedure(s): CT angio abd aorta runoff Accession Number(s): [id number] cc: Jenaro Valadez D.O. 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 TECHNIQUE: After obtaining the patient's consent, CT images of the abdomen, pelvis, and lower extremities were obtained without and with non-ionic intravenous contrast material. Multi-planar reformatted/3-D images were created to optimize visualization of vascular anatomy. Dose reduction techniques were achieved by using automated exposure control and/or adjustment of mA and/or kV according to patient size and/or use of iterative reconstruction technique. FINDINGS: AORTA: No aortic aneurysm. Moderate soft and calcific atherosclerotic plaque with approximately 40% narrowing of the distal abdominal aorta Celiac: No flow significant stenosis occlusion or aneurysm SMA: No flow significant stenosis occlusion or aneurysm Renals: Single right. Single left. No flow significant stenosis occlusion or aneurysm ZENA: High-grade stenosis at the origin ILIAC: Extensive diffuse calcific atherosclerosis. Stent identified in the left common and external iliac arteries. Occlusion of the left internal iliac. High-grade stenosis mid right internal iliac. Multisegment narrowing of the right external iliac up to 70% RIGHT LEG: Extensive soft and calcific atherosclerotic plaque. 60% narrowing in the common femoral. Occlusion of the femoral artery at the origin. Flow is identified in the profunda femoral and deep femoral. Collateral flow identified in the distal femoral popliteal and runoff arteries. Occlusion of the proximal anterior tibial artery LEFT LEG: Extensive atherosclerosis in the common femoral. Flow identified in the profunda femoral and deep femoral. High-grade stenosis throughout the right femoral artery estimated to be 90%. Flow identified in the popliteal, peroneal and posterior tibial arteries. There is occlusion of the anterior tibial artery LUNG BASES: Scattered pulmonary nodules the largest measuring 7.4 mm in the lingula, nonspecific LIVER: Punctate calcifications, prior granulomatous process BILIARY: No visible dilatation or calcification. PANCREAS: No lesion, fluid collection, ductal dilatation, or atrophy. SPLEEN: Punctate calcifications, prior granulomatous process ADRENALS: No mass or enlargement. KIDNEYS: Bilateral renal cortical atrophy. Left renal cortical hypodensity likely cysts. No hydronephrosis BOWEL/MESENTERY: Nonobstructive bowel gas pattern. Suture line from prior appendectomy. Nonobstructive bowel gas pattern RETROPERITONEUM: No mass or adenopathy. ABDOMINAL WALL: No mass or hernia. URINARY BLADDER: Moderate fluid distention PELVIC NODES: No adenopathy. PELVIC ORGANS: Normal sized prostate. Prostate calcifications BONES: Right forefoot amputation. 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 Small amount of collateral flow in the right popliteal and runoff arteries Electronically authenticated by: EVAN HODGES Date: 11/02/2023 09:54 Dictated By: Evan Hodges M.D. Signed By: 11/02/23 0956 DD/ 0954 TD/TT: Technician Semiconductor Development: Procedure Note Radiology, Radiologist, MD - 11/02/2023 [place] [address] CT Scan Report Signed Patient: MYRA FELDMAN SrMaryMR#: [id number] : 1965Acct:[id number] Age/Sex: 58 / MADM Date: 11/02/23 Loc: CT Attending Dr: Padmini Montes M.D. Ordering Physician: Padmini Montes M.D. Date of Service: 11/02/23 Procedure(s): CT angio abd aorta runoff Accession Number(s): [id number] cc: Jenaro Valadez D.O. 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 TECHNIQUE: After obtaining the patient's consent, CT images of theabdomen, pelvis, and lower extremities were obtained without and with non-ionic intravenous contrast material. Multi-planar reformatted/3-D images were created to optimize visualization of vascular anatomy. Dose reduction techniqueswere achieved by using automated exposure control and/or adjustment of mAand/or kV according to patient size and/or use of iterative reconstructiontechnique. FINDINGS: AORTA: No aortic aneurysm. Moderate soft and calcific atheroscleroticplaque with approximately 40% narrowing of the distal abdominal aorta Celiac: No flow significant stenosis occlusion or aneurysm SMA: No flow significant stenosis occlusion or aneurysm Renals: Single right. Single left. No flow significant stenosis occlusionor aneurysm ZENA: High-grade stenosis at the origin ILIAC: Extensive diffuse calcific atherosclerosis. Stent identified in the left common and external iliac arteries. Occlusion of the left internal iliac. High-grade stenosis mid right internal iliac. Multisegment narrowing ofthe right external iliac up to 70% RIGHT LEG: Extensive soft and calcific atherosclerotic plaque. 60%narrowing in the common femoral. Occlusion of the femoral artery at the origin. Flow is identified in the profunda femoral and deep femoral. Collateral flow identified in the distal femoral popliteal and runoff arteries. Occlusion of theproximal anterior tibial artery LEFT LEG: Extensive atherosclerosis in the common femoral. Flow identifiedin the profunda femoral and deep femoral. High-grade stenosis throughout the right femoral artery estimated to be 90%. Flow identified in the popliteal,peroneal and posterior tibial arteries. There is occlusion of the anterior tibial artery LUNG BASES: Scattered pulmonary nodules the largest measuring 7.4 mm inthe lingula, nonspecific LIVER: Punctate calcifications, prior granulomatous process BILIARY: No visible dilatation or calcification. PANCREAS: No lesion, fluid collection, ductal dilatation, or atrophy. SPLEEN: Punctate calcifications, prior granulomatous process ADRENALS: No mass or enlargement. KIDNEYS: Bilateral renal cortical atrophy. Left renal cortical hypodensity likely cysts. No hydronephrosis BOWEL/MESENTERY: Nonobstructive bowel gas pattern. Suture line from prior appendectomy. Nonobstructive bowel gas pattern RETROPERITONEUM: No mass or adenopathy. ABDOMINAL WALL: No mass or hernia. URINARY BLADDER: Moderate fluid distention PELVIC NODES: No adenopathy. PELVIC ORGANS: Normal sized prostate. Prostate calcifications BONES: Right forefoot amputation. 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 Small amount of collateral flow in the right popliteal and runoff arteries Electronically authenticated by: EVAN HODGES Date: 11/02/2023 09:54 Dictated By: Evan Hodges M.D. Signed By:11/02/23 0956 DD/ TD/TT: Technician Semiconductor Development: Padmini Montes MD IMG XR PROCEDURES Final Resu lt documented in this encounter Visit Diagnoses Not on filedocumented in this encounter Care Teams Electrotype Caster Relationship Specialty Start Date End Date Jenaro Valadez DO PCP - External PCP 03/05/23 Jenaro Valadez DO PCP - General 03/12/24 documented as of this encounter
--- OUTSIDE RECORDS SUMMARY | 2024-12-15 09:03 | XMS_ITS | Encounter Summary ---
Author Organization [facility] Address [address] [place] [address] Phone Care Team Providers Care Geospatial Systems Integrator Name Role Phone Jenaro Valadez DO Primary Care Provider [phone] Namita Mercer ACADEMIC MANAGER Unavailable [phone] Jenaro Valadez DO Primary Care Provider [phone] Encounter Details Date Type Department Care Team (Late st Contact Info) Description 12/23/2023 Scanned Document [facility] [address] [place] [phone] Scanning, Generic Provider Social History Tobacco Use [...] Info) Description 12/18/2024 8:00 AM EDT Appointment [address] [address] 12/18/2024 8:30 AM EDT Appointment [address] [address] 12/18/2024 9:00 AM EDT Appointment [facility] 703 [facility] [address] [place] [address] 12/18/2024 9:30 AM EDT Appointment [facility] [address] [facility] [address] [place] [address] 12/18/2024 9:45 AM EDT Appointment [facility] [address] [facility] [address] [place] [address] 12/24/2024 10:00 AM EDT Office Visit [place] [address] [place] [address] Oumar Sandoval MD [facility], [address] [place] [address] documented as of this encounter Visit Diagnoses Not on filedocumented in this encounter Care Teams Geospatial Systems Integrator Relationship Specialty Start Date End Date Jenaro Valadez DO PCP - General 04/17/19 11/03/24 Jenaro Valadez DO [address] [place] [address] PCP - General Family Medicine 11/04/24 Namita Mercer, GÉNESIS Crm Solution ArchitectMajor Donor Coordinator 12/25/23 02/22/24 documented as of this encounter
--- OUTSIDE RECORDS SUMMARY | 2024-12-15 09:03 | XMS_ITS | Encounter Summary ---
Author Organization [id number] Address [id number] [address] [place] [address] Care Team Providers Care Workers' Compensation Magistrate Name Role Phone Unavailable Primary Care Provider Unavailabl e Encounter Details Date Type Department Care Team (Late st Contact Info) Description 12/20/2023 Orders Only [facility] [address] [place] [address] [place], [place], [facility] Social History Tobacco Use Types Packs/Day Years Used Date Smoking Tobacco: Every Day Cigarettes 1 43.2 Started: 10/05/1981 Smokeless Tobacco: Never Alcohol Use Standard Drinks/Week Comments Not Currently 0 (1 standard drink = 0.6 oz pur e alcohol) [facility] Utilities Answer Date Recorded In the past 12 months has e [employer], gas, oil, or water company threatened to [...] got money to buy more. Never True 12/21/2023 Within the past 12 months th e food we bought just didn't last and we didn't have money to get more. Never True 12/21/2023 Sex and Gender Information Value Date Recorded Sex Assigned at Not on file Legal Sex Male 1:04 PM EDT Gender Identity Not on file Sexual Orientation Not on file documented as of this encounter Plan of Treatment Upcoming Encounters Date Type Department Care Team (Late st Contact Info) Description 01/02/2025 11:50 AM EDT Office Visit [facility] [place] [address] [place] [address] Padmini Montes MD [address], [address] [address] documented as of this encounter Goals Goal [...]
--- OUTSIDE RECORDS SUMMARY | 2024-12-15 09:03 | XMS_ITS | Encounter Summary ---
Author Organization [employer] Address [id number] [address] [place] [address] Care Team Providers Care Production Team Member Name Role Phone Unavailable Primary Care Provider Unavailabl e Encounter Details Date Type Department Care Team (Late st Contact Info) Description 01/31/2024 Telephone [facility] [address] [place] [address] [phone] Padmini Montes MD [address], [facility] [address] [place] [address] Social History Tobacco Use Types Packs/Day Years Used Date Smoking Tobacco: Every Day Cigarettes 1 43.2 Started: 10/05/1981 Smokeless Tobacco: Never Alcohol Use Standard Drinks/Week Comments Not Currently 0 (1 standard drink = 0.6 oz pur e alcohol) [facility] Utilities Answer Date Recorded In [...] encounter Miscellaneous Notes * Telephone Encounter - Ashley Colon - 01/31/2024 2:06 PM EDT Patient's is calling to report he is having a lot of pain near his wound- he will be having anamp- she is asking if he can have any pain killers. They would use [facility] [place] is so. They can be reached at [phone] Thank you. * Telephone Encounter - Lay Vang LPN - 01/31/2024 2:06 PM EDT Recommended patient contact family physician for pain medication. Patients is satisfied documented in this encounter Plan of Treatment Upcoming Encounters Date Type Department Care Team (Late st Contact Info) Description 01/02/2025 11:50 AM EDT Office Visit [facility] [place] [address] [place] [address] Padmini Montes MD [address], [address] [address] documented as of this encounter Goals Goal [...]
--- OUTSIDE RECORDS SUMMARY | 2024-12-15 09:03 | XMS_ITS | Encounter Summary ---
Author Organization [facility] Address [address] [place] [address] Phone Care Team Providers Care Oxygen Equipment Aide Name Role Phone Jenaro Valadez DO Primary Care Provider [phone] Jenaro Valadez DO Unavailable Namita Mercer SPINNER FRAME Unavailable Jenaro Valadez DO Primary Care Provider [phone] Encounter Details Date Type Department Care Team (Late st Contact Info) Description 02/11/2021 Orders Only [facility] [address] [place] [address] Conversion, Onbase Social History Tobacco Use Types [...] Info) Description 12/18/2024 8:00 AM EDT Appointment [address] [address] 12/18/2024 8:30 AM EDT Appointment [place] [address] [address] 12/18/2024 9:00 AM EDT Appointment [address] [address] 12/18/2024 9:30 AM EDT Appointment [facility] [address] [facility] [address] [place] [address] 12/18/2024 9:45 AM EDT Appointment [facility] [address] [facility] [address] [place] [address] 12/24/2024 10:00 AM EDT Office Visit [place] [address] [place] [phone] Oumar Sandoval MD 703 [facility] [address], [address] [place], [place] [phone] Scheduled Orders Name Type Priority Associated Diagnoses Orde r Schedule OUTSIDE LAB SCAN Lab Ordered: 02/11/2021 OUTSIDE LAB SCAN Lab Ordered: 02/11/2021 documented as of this encounter Visit Diagnoses Not on filedocumented in this encounter Care Teams Oxygen Equipment Aide Relationship Specialty Start Date End Date Jenaro Valadez DO PCP - General 04/17/19 11/03/24 Jenaro Valadez DO [facility] [place] [address] PCP - Talha HUMPHREYO PCP 06/05/2110/02 Jenaro Valadez DO [facility] [place] [address] PCP - General Family Medicine 11/04/24 Namita Mercer LPN Custom SeamstressMotion Picture Film Examiner 12/25/23 02/22/24 documented as of this encounter
--- OUTSIDE RECORDS SUMMARY | 2024-12-15 09:03 | XMS_ITS | Encounter Summary ---
Author Organization [facility] tem Address [id number] [address] [place] [address] Care Team Providers Care Rejoiner Name Role Phone Unavailable Primary Care Provider Unavailabl e Encounter Details Date Type Department Care Team (Late st Contact Info) Description 11/14/2023 Orders Only [facility] Acute [address] [place] [phone] Mallorie Hammond RN Social History Tobacco Use Types Packs/Day Years Used Date Smoking Tobacco: Every Day Cigarettes 1 43.2 Started: 10/05/1981 Smokeless Tobacco: Never Alcohol Use Standard Drinks/Week Comments Not Currently 0 (1 standard drink = 0.6 oz pur e alcohol) [facility] Utilities Answer Date Recorded In the past 12 months has [employer], gas, oil, or water [employer] threatened to shut off services in your [...] got money to buy more. Never True 11/07/2023 Within the past 12 months th e food we bought just didn't last and we didn't have money to get more. Never True 11/07/2023 Sex and Gender Information Value Date Recorded Sex Assigned at Not on file Legal Sex Male 1:04 PM EDT Gender Identity Not on file Sexual Orientation Not on file documented as of this encounter Plan of Treatment Upcoming Encounters Date Type Department Care Team (Late st Contact Info) Description 01/02/2025 11:50 AM EDT Office Visit [facility] [place] [address] [place] [address] Padmini Montes MD [address], [address] [address] documented as of this encounter Goals Goal [...]
--- OUTSIDE RECORDS SUMMARY | 2024-12-15 09:03 | XMS_ITS | Encounter Summary ---
Author Organization [employer] Address [id number] [address] [place] [address] Care Team Providers Care Web Merchandiser Name Role Phone Unavailable Primary Care Provider Unavailabl e Encounter Details Date Type Department Care Team (Late st Contact Info) Description 02/02/2024 Orders Only [facility] [address] [place] [address] [phone] Padmini Montes MD [address], [facility] [address] [place] [address] Social History Tobacco Use Types Packs/Day Years Used Date Smoking Tobacco: Every Day Cigarettes 1 43.2 Started: 10/05/1981 Smokeless Tobacco: Never Alcohol Use Standard Drinks/Week Comments Not Currently 0 (1 standard drink = 0.6 oz pur e alcohol) [facility] Utilities Answer Date Recorded In the past 12 months has e [employer], gas, oil, or water [employer] threatened to shut off services in your [...] AM EDT Office Visit [facility] [place] [address] [place] [address] Padmini Montes MD [address], [address] [address] documented as of this encounter Goals Goal Patient Goal Type Associated Problems Recent Progress Patient-Stated? Author Patient is planning to transition back to SNF at discharge. General Yes Chandrika Quiñonez LSW Note: Evaluation of progress towards goal: Patient is planning to transition back to SNF at discharge. documented as of this encounter Procedures Procedure Name Priority Date/Time Associated Diagnosis Comments BASIC METABOLIC PANEL Routine 02/02/2024 1:18 PM EDT BASIC METABOLIC PANEL Routine 02/01/2024 1:22 PM EDT CBC WITH AUTO DIFFERENTIAL Routine 02/01/2024 1:21 PM EDT documented in this encounter Results * Basic Metabolic Panel (02/02/2024 1:18 PM EDT) us Padmini Montes MD LAB BLOOD ORDERABLES Final Re sult MANUALLY TRANSCRIBED RESULTS * Basic Metabolic Panel (02/01/2024 1:22 PM EDT) us Padmini Montes MD LAB BLOOD ORDERABLES Final Re sult Performing Organization Address [facility] de Phone Number MANUALLY TRANSCRIBED RESULTS * CBC auto differential (02/01/2024 1:21 PM EDT) us Padmini Montes MD LAB BLOOD ORDERABLES Final Re sult Performing Organization Address [facility] de Phone Number MANUALLY TRANSCRIBED RESULTS documented in this encounter Visit Diagnoses Not on filedocumented in this encounter Additional Health Concerns Assessment Noted Time PHQ-9 Depression Total Score: 0 11/07/19 24 8:40 PM EDT documented as of this encounter
--- OUTSIDE RECORDS SUMMARY | 2024-12-15 09:03 | XMS_ITS | Encounter Summary ---
Author Organization [facility] Address [address] [place] [address] Care Team Providers Care Brass Burnisher Name Role Phone Jenaro Valadez DO Unavailable Jenaro Valadez DO Primary Care Provider [phone] Encounter Details Date Type Department Care Team (Late st Contact Info) Description 09/30/2023 Clinisync Result Encounter [facility] External Department Unsolicited Chandrika Castanon PA [address] [place] [address] Dr Poe [place] [phone] Social History Tobacco Use Types Packs/Day Years [...] Procedure Name Priority Date/Time Associated Diagnosis Comments ECG 12-LEAD 09/30/2023 4:05 PM EDT documented in this encounter Results * ECG 12-LEAD (09/30/2023 4:05 PM EDT) Anatomical Region Laterality Modality Other 09/30/2023 4:05 PM EDT Narrative 10/01/2023 7:13 AM EDT The [facility] [address] [place] [address] Electrocardiograph Report Signed Patient: MYRA FELDMAN Sr. MR#: [id number] : 1965 Acct:[id number] Age/Sex: 58 / M ADM Date: 09/30/23 Loc: ICU 274-[address]: Flaquito Zaman M.D. Ordering Physician: Chandrika Castanon Date of Service: 09/30/23 Procedure(s): ECG 12 lead Accession Number(s): [id number] cc: [facility] Test Date: 2023-09-30 Pat Name: MYRA FELDMAN Department: Room: - Gender: Male Reinforcing Steel Machine Operator: : 1965 Requested By: Jenaro Valadez Order Number: [id number] Reading MD: FLAQUITO ZAMAN Measurements Intervals [place] Rate: 114 P: 204 CA: 234 QRS: 84 QRSD: 92 T: 51 QT: 342 QTc: 410 Interpretive Statements 1220 Rapid atrial rhythm 2231 First degree AV block 8102 Low QRS voltage in chest leads 9150 abnormal ECG Compared to ECG 09/18/2023 08:41:27 First degree AV block now present Low QRS voltage now present Sinus rhythm no longer present Intraventricular conduction delay no longer present Electronically Signed On 10-01-2023 7:13:33 EDT by FLAQUITO ZAMAN Dictated By: Flaquito Zaman M.D. Signed By: 10/01/23 0713 DD/ 1605 TD/TT: Commercial Sales Consultant: Procedure Note Radiology, Radiologist, MD - 10/01/2023 [place] [address] Electrocardiograph Report Signed Patient: MYRA FELDMAN SrMaryMR#: [id number] : 1965Acct:[id number] Age/Sex: 58 / MADM Date: 09/30/23 Loc: ICU 274-[address]: Flaquito Zaman M.D. 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 Signed By:10/01/23 0713 DD/ 1605 TD/TT: Commercial Sales Consultant: Chandrika [facility] Final Result documented in this encounter Visit Diagnoses Not on filedocumented in this encounter Care Teams Brass Burnisher Relationship Specialty Start Date End Date Jenaro Valadez DO PCP - External PCP 03/05/23 Jenaro Valadez DO PCP - General 03/12/24 documented as of this encounter
--- OUTSIDE RECORDS SUMMARY | 2024-12-15 09:03 | XMS_ITS | Encounter Summary ---
Author Organization [facility] Address [address] [address] Care Team Providers Care Applications Intern Name Role Phone Jenaro Valadez DO Unavailable Jenaro Valadez DO Primary Care Provider [phone] Encounter Details Date Type Department Care Team (Late st Contact Info) Description 09/30/2023 Clinisync Result Encounter [facility] External Department Unsolicited Chandrika Frye PA [address] [place] [address] Dr Poe [place] [phone] Social History Tobacco Use Types Packs/Day Years [...] Procedure Name Priority Date/Time Associated Diagnosis Comments XR CHEST 1 V 09/30/2023 6:39 PM EDT documented in this encounter Results * XR CHEST 1 V (09/30/2023 6:39 PM EDT) Anatomical Region Laterality Modality Other 09/30/2023 6:39 PM EDT Narrative 09/30/2023 6:41 PM EDT The [facility] [address] [place] [address] XRay Report Signed Patient: MYRA FELDMAN Sr. MR#: [id number] : 1965 Acct:[id number] Age/Sex: 58 / M ADM Date: 09/30/23 Loc: ICU 274-[address]: Truman Bryant M.D. Ordering Physician: Chandrika Frye Date of Service: 09/30/23 Procedure(s): XR chest 1V Accession Number(s): [id number] cc: Chandrika Frye; Jenaro Valadez D.O. The [place] [address] Patient Name: MYRA FELDMAN MRN: [facility]:[id number] date: 1965 Sex: M Assigned Patient Location: ED.MAIN Current Patient Location: ICU Accession/Order Number: [id number] Exam Date: 09/30/2023 18:05 Report Date: 09/30/2023 18:39 At the request of: CHANDRIKA FRYE Procedure: XR chest 1V EXAM: XR chest 1V HISTORY: sepsis COMPARISON: 03/03/2023 and earlier TECHNIQUE: AP upright chest x-ray. FINDINGS: Clear lungs without infiltrate or edema. Heart size accentuated by magnification appears prominent. No pleural effusion or pneumothorax. XR/XR chest 1V IMPRESSION: Stable chest x-ray, no acute findings. Cardiac silhouette accentuated by magnification. Electronically authenticated by: RAULITO WHITESIDE Date: 09/30/2023 18:39 Dictated By: Raulito Whiteside M.D. Signed By: 09/30/23 1841 DD/ 1839 TD/TT: Track Laying Equipment Operator: Procedure Note Radiology, Radiologist, MD - 09/30/2023 [place] [address] XRay Report Signed Patient: MYRA FELDMAN Sr.MR#: [id number] : 1965Acct:[id number] Age/Sex: 58 / MADM Date: 09/30/23 Loc: ICU 274-[address]: Truman Bryant M.D. Ordering Physician: Chandrika Frye Date of Service: 09/30/23 Procedure(s): XR chest 1V Accession Number(s): [id number] cc: Jenaro Hooper D.O. The [address] [address] Patient Name: MYRA FELDMAN MRN: [id number] date: 1965 Sex: M Assigned Patient Location: ED.MAIN Current Patient Location: ICU Accession/Order Number: [id number] Exam Date: 09/30/2023 18:05 Report Date: 09/30/2023 18:39 At the request of: CHANDRIKA FRYE Procedure: XR chest 1V EXAM: XR chest 1V HISTORY: sepsis COMPARISON: 03/03/2023 and earlier TECHNIQUE: AP upright chest x-ray. FINDINGS: Clear lungs without infiltrate or edema. Heart size accentuatedby magnification appears prominent. No pleural effusion or pneumothorax. XR/XR chest 1V IMPRESSION: Stable chest x-ray, no acute findings. Cardiac silhouette accentuated by magnification. Electronically authenticated by: RAULITO WHITESIDE Date: 09/30/2023 18:39 Dictated By: Raulito Whiteside M.D. Signed By:09/30/23 1841 DD/ 1839 TD/TT: Track Laying Equipment Operator: us Chandrika [facility] Final Result documented in this encounter Visit Diagnoses Not on filedocumented in this encounter Care Teams Applications Intern Relationship Specialty Start Date End Date Jenaro Valadez DO PCP - External PCP 03/05/23 Jenaro Valadez DO PCP - General 03/12/24 documented as of this encounter
--- OUTSIDE RECORDS SUMMARY | 2024-12-15 09:03 | XMS_ITS | Encounter Summary ---
Author Organization [facility] Address [address] [place] [address] Care Team Providers Care Voice Instructor Name Role Phone Jenaro Valadez DO Primary Care Provider [phone] Robert Zamora MD Unavailable Franklin Link DO Unavailable [phone] Jenaro Valadez DO Primary Care Provider [phone] Carlos A Bolanos Unavailable [phone] Carlos A Bolanos Unavailable [phone] Source Comments In the event this information is protected by the Federal Confidentiality of Alcohol and Drug AbusePatient Records regulations: The Federal rules restrict any use of the information to criminally investigate or prosecute any alcohol or drug abuse patient.[facility] Reason for Visit * Reason Comments PSG Check In (Adult) Encounter Details Date Type Department Care Team (Late st Contact Info) Description 08/05/2014 Abstract Neurology [address] [place] [address] Main, Sleep Center [address] [place] [phone] PSG Check In (Adult) Social History Tobacco Use Types Packs/Day Years Used Date Smoking Tobacco: Every Day Cigarettes 0.5 47.1 Started: 11/18/1977 Smokeless Tobacco: Former Quit: 11/04/2013 Alcohol Use Standard Drinks/Week Comments No 0 (1 standard drink = 0.6 oz pur e alcohol) Sex and Gender Information Value Date Recorded Sex Assigned at Not on file Legal Sex Male 9:56 AM EST Gender Identity Not on file [...] Entry Date Author No 08/04/2014 10:01 AM Marybel Antonio Ma documented in this encounter Plan of Treatment Not on file documented as of this encounter Visit Diagnoses Not on filedocumented in this encounter Care Teams Voice Instructor Relationship Specialty Start Date End Date Jenaro Valadez DO [address] [place] [address] PCP - General Family Medicine 10/30/13 10/25/16 Jenaro Valadez DO [address] [place] [address] PCP - General Family Medicine 10/26/16 Robert Zamora MD [address] [place] [address] Primary Staff Physician Cardiology 09/03/14 6 Franklin Link DO [address] [place] [address] Referring Orthopedics 10/26/16 Carlos A Bolanos [address] [facility] [place] [address] Primary Staff Physician Cardiology 08/21/18 Carlos A Bolanos [address] [facility] [place] [address] Primary Staff Physician Cardiology 08/21/18 documented as of this encounter
--- OUTSIDE RECORDS SUMMARY | 2024-12-15 09:03 | XMS_ITS | Encounter Summary ---
Author Organization [facility] Address [address] [place] [address] Care Team Providers Care Foster Parent Name Role Phone Jenaro Valadez DO Unavailable Jenaro Valadez DO Primary Care Provider [phone] Encounter Details Date Type Department Care Team (Late st Contact Info) Description 09/30/2023 Clinisync Result Encounter [facility] External Department Unsolicited Chandrika Frye PA [address] [place] [address] [place] [address] Social History Tobacco Use Types Packs/Day Years [...] Procedure Name Priority Date/Time Associated Diagnosis Comments ALL LACTOSE TOLERANCE Routine 09/30/2023 10:26 PM EDT ALL LACTOSE TOLERANCE Routine 09/30/2023 7:14 PM EDT XR FOOT RT MIN 3V 09/30/2023 6:4 6 PM EDT documented in this encounter Results * (ABNORMAL) ALL LACTOSE TOLERANCE (09/30/2023 10:26 PM EDT) LACTATE/LACTIC ACID 4.2(HH) 0.4 - 2.0 mmol/L [facility] Comment: RESULTS CALLED TO Feli CORREA)@BY Marybel Hawkins MLT at 2312 09/30/2023 10:2 6 PM EDT 09/30/2023 10:34 PM EDT Narrative [facility] - 09/30/2023 11:13 PM EDT us Chandrika [facility] Final Result [facility] TB * (ABNORMAL) ALL LACTOSE TOLERANCE (09/30/2023 7:14 PM EDT) LACTATE/LACTIC ACID 3.1(HH) 0.4 - 2.0 mmol/L [facility] Comment: RESULTS CALLED TO Feli CORREA)@BY Marybel Hawkins MLT at 1956 09/30/2023 7:14 PM EDT 09/30/2023 7:17 PM EDT Narrative [facility] - 09/30/2023 7:56 PM EDT us Chandrika [facility] Final Result Performing Organization Address [facility] de Phone Number [facility] TB * XR FOOT RT MIN 3V (09/30/2023 6:46 PM EDT) Anatomical Region Laterality Modality Other 09/30/2023 6:46 PM EDT Narrative 09/30/2023 6:48 [place] [address] XRay Report Signed Patient: MYRA FELDMAN . MR#: [id number] : 1965 Acct:[id number] Age/Sex: 58 / M ADM Date: 09/30/23 Loc: ICU 274-[address]: Truman Bryant M.D. Ordering Physician: Chandrika Frye Date of Service: 09/30/23 Procedure(s): XR foot RT min 3V Accession Number(s): [id number] cc: Chandrika Frye; Jenaro Valadez D.O. [place] [address] Patient Name: MYRA FELDMAN MRN: [id number] date: 1965 Sex: M Assigned Patient Location: ED.MAIN Current Patient Location: ICU Accession/Order Number: [id number] Exam Date: 09/30/2023 18:05 Report Date: 09/30/2023 18:46 At the request of: CHANDRIKA FRYE Procedure: XR foot RT min 3V EXAM: XR foot RT min 3V HISTORY: pain COMPARISON: 09/21/2023 TECHNIQUE: 3 views of the right foot FINDINGS: There is no acute fracture or dislocation. No cortical erosion or focal osteopenia to suggest acute osteomyelitis. There is plantar foot ulcer at the level of the first metatarsophalangeal joint. Degenerative changes of the metatarsophalangeal joints are noted. No gas or radiopaque foreign body is noted in the soft tissue. XR/XR foot RT min 3V IMPRESSION: No acute fracture. No radiographic evidence of acute osteomyelitis. MRI of the foot with and without contrast is recommended if clinically warranted. Electronically authenticated by: EMMA EARL Date: 09/30/2023 18:46 Dictated By: Emma Earl M.D. Signed By: 09/30/231847 DD/ 45 TD/TT: Filling Room Operator: Procedure Note Radiology, Radiologist, MD - 09/30/2023 [place] [address] XRay Report Signed Patient: MYRA FELDMAN Sr.MR#: [id number] : 1965Acct:[id number] Age/Sex: 58 / MADM Date: 09/30/23 Loc: ICU 274-[address]: Truman Bryant M.D. Ordering Physician: Chandrika Frye Date of Service: 09/30/23 Procedure(s): XR foot RT min 3V Accession Number(s): [id number] cc: Chandrika Frye; Jenaro Valadez D.O. The [place] [address] Patient Name: MYRA FELDMAN MRN: [id number] date: 1965 Sex: M Assigned Patient Location: ED.MAIN Current Patient Location: ICU Accession/Order Number: [id number] Exam Date: 09/30/2023 18:05 Report Date: 09/30/2023 18:46 At the request of: CHANDRIKA FRYE Procedure: XR foot RT min 3V EXAM: XR foot RT min 3V HISTORY: pain COMPARISON: 09/21/2023 TECHNIQUE: 3 views of the right foot FINDINGS: There is no acute fracture or dislocation. No cortical erosion or focal osteopenia to suggest acute osteomyelitis. There is plantar foot ulcer atthe level of the first metatarsophalangeal joint. Degenerative changes of the metatarsophalangeal joints are noted. No gas or radiopaque foreign body is noted in the soft tissue. XR/XR foot RT min 3V IMPRESSION: No acute fracture. No radiographic evidence of acute osteomyelitis. MRI of the foot with and without contrast is recommended if clinically warranted. Electronically authenticated by: EMMA EARL Date: 09/30/2023 18:46 Dictated By: Emma Earl M.D. Signed By:09/30/231847 DD/ 45 TD/TT: Filling Room Operator: Chandrika [facility] Final Result documented in this encounter Visit Diagnoses Not on filedocumented in this encounter Care Teams Foster Parent Relationship Specialty Start Date End Date Jenaro Valadez DO PCP - External PCP 03/05/23 Jenaro Valadez DO PCP - General 03/12/24 documented as of this encounter
--- OUTSIDE RECORDS SUMMARY | 2024-12-15 09:03 | XMS_ITS | Encounter Summary ---
Author Organization [facility] Address [address] [place] [address] Phone Care Team Providers Care Senior Insight Manager International Name Role Phone Jenaro Valadez DO Primary Care Provider [phone] Jenaro Valadez DO Unavailable Namita Mercer COOK HOUSE SUPERVISOR Unavailable Jenaro Valadez DO Primary Care Provider [phone] Encounter Details Date Type Department Care Team (Late st Contact Info) Description 10/19/2021 Orders Only [facility] [address] [place] [address] Conversion, Onbase Social History Tobacco Use Types [...] Info) Description 12/18/2024 8:00 AM EDT Appointment [address] [address] 12/18/2024 8:30 AM EDT Appointment [place] [address] [address] 12/18/2024 9:00 AM EDT Appointment [address] [address] 12/18/2024 9:30 AM EDT Appointment [facility] [address] [facility] [address] [place] [phone] 12/18/2024 9:45 AM EDT Appointment [facility] [address] [facility] [address] [place] [address] 12/24/2024 10:00 AM EDT Office Visit [place] [address] [place] [phone] Oumar Sandoval MD [address] [facility] [address] [place], [place] [address] Scheduled Orders Name Type Priority Associated Diagnoses Orde r Schedule OUTSIDE LAB SCAN Lab Ordered: 10/19/2021 documented as of this encounter Visit Diagnoses Not on filedocumented in this encounter Care Teams Senior Insight Manager International Relationship Specialty Start Date End Date Jenaro Valadez DO PCP - General 04/17/19 11/03/24 Jenaro Valadez DO [address] [place] [address] PCP - Talha ACO PCP 06/05/2110/02 Jenaro Valadez DO [address] [place] [address] PCP - General Family Medicine 11/04/24 Namita Mercer, COOK HOUSE SUPERVISOR Doll RepairerSupervisor Refining 12/25/23 02/22/24 documented as of this encounter
--- OUTSIDE RECORDS SUMMARY | 2024-12-15 09:03 | XMS_ITS | Encounter Summary ---
Author Organization [facility] Address [address] [place] [address] Care Team Providers Care Drum Sander Offbearer Name Role Phone Jenaro Valadez DO Primary Care Provider [phone] Franklin Link DO Unavailable [phone] Jenaro Valadez DO Primary Care Provider [phone] Carlos A Bolanos Unavailable [phone] Carlos A Bolanos Unavailable [phone] Source Comments In the event this information is protected by the Federal Confidentiality of Alcohol and Drug AbusePatient Records regulations: The Federal rules restrict any use of the information to criminally investigate or prosecute any alcohol or drug abuse patient.[facility] Encounter Details Date Type Department Care Team (Late st Contact Info) Description 02/29/2016 Radiology Radiology [address] [place] [address] [place] [phone] Sheri Mendez, (R) Social History Tobacco Use Types Packs/Day Years Used Date Smoking Tobacco: Former Cigarettes 0.5 36 0 11/18/1977 - 11/06/2013 Smokeless Tobacco: Former Quit: 11/04/2013 Alcohol Use [...] hearing? Answer Date of Assessment Author No 07/28/2015 1:56 PM Howard Duncan (Rn)(Hist), RN * Are you blind or do you have serious difficulty seeing, even when wearing glasses? Answer Date of Assessment Author No 07/28/2015 1:56 PM Howard Duncan (Rn)(Hist), RN * Do you have serious difficulty walking or climbing stairs? Answer Date of Assessment Author No 07/28/2015 1:56 PM Howard Duncan (Rosa)(Hist), RN * Do you have difficulty dressing or bathing? Answer Date of Assessment Author No 07/28/2015 1:56 PM Howard Duncan (Rosa)(Hist), RN * Because of a physical, mental, or emotional condition, do you have difficulty doing errands alone such as visiting a doctor's office or shopping? Answer Date of Assessment Author No 07/28/2015 1:56 PM Howard Duncan (Rosa)(Hist), RN documented as of this encounter Mental Status * Because of a physical, mental, or emotional condition, do you have serious difficulty concentrating, remembering, or making decisions? Answer Entry Date Author No 07/28/2015 1:56 PM Howard Duncan (Rosa)(Hist), RN documented in this encounter Plan of Treatment Not on file documented as of this encounter Visit Diagnoses Not on filedocumented in this encounter Care Teams Drum Sander Offbearer Relationship Specialty Start Date End Date Jenaro Valadez DO [facility] [place] [address] PCP - General Family Medicine 10/30/13 10/25/16 Jenaro Valadez DO [address] [place] [address] [place] [address] PCP - General Family Medicine 10/26/16 Franklin Link DO [address] [place] [address] Referring Orthopedics 10/26/16 Carlos A Bolanos [address] [place] [address] Primary Staff Physician Cardiology 08/21/18 Carlos A Bolanos [address] [place] [address] Primary Staff Physician Cardiology 08/21/18 documented as of this encounter
--- OUTSIDE RECORDS SUMMARY | 2024-12-15 09:03 | XMS_ITS | Encounter Summary ---
Author Organization [facility] Address [address] [place] [address] Phone Care Team Providers Care Roasterman Name Role Phone Jenaro Valadez DO Primary Care Provider [phone] Namita Mercer MAIN LINE ASSEMBLER Unavailable [phone] Jenaro Valadez DO Primary Care Provider [phone] Encounter Details Date Type Department Care Team (Late st Contact Info) Description 12/05/2022 Patient Risk Score [facility] Care Management [address] [place] [address] Social History Tobacco Use Types [...] Info) Description 12/18/2024 8:00 AM EDT Appointment [place] [address] [phone] 12/18/2024 8:30 AM EDT Appointment [place] [address] [address] 12/18/2024 9:00 AM EDT Appointment [place] [address] [phone] 12/18/2024 9:30 AM EDT Appointment [facility] [address] [facility] [address] [place] [phone] 12/18/2024 9:45 AM EDT Appointment [facility] [address] [facility] [address] [place] [address] 12/24/2024 10:00 AM EDT Office Visit [address] [place] [phone] Oumar Sandoval MD [address] [facility] [address] [place] [address] documented as of this encounter Visit Diagnoses Not on filedocumented in this encounter Care Teams Roasterman Relationship Specialty Start Date End Date Jenaro Valadez DO PCP - General 04/17/19 11/03/24 Jenaro Valadez [place] [address] PCP - General Family Medicine 11/04/24 Namita Mercer, GÉNESIS Secondary Social Studies TeacherIntegrated Program Teacher 12/25/23 02/22/24 documented as of this encounter
--- OUTSIDE RECORDS SUMMARY | 2024-12-15 09:03 | XMS_ITS | Patient Health Record ---
Author Organization [employer] [facility] Address [address] [place] [address] Care Team Providers Care Commissioning Engineer Name Role Phone Diogo Rodriguez Primary Care Provider Bebeto Davis Unavailable [phone] Reason For Referral No Information Plan Of Treatment No Information Insurance Providers Payer Name Payer Address Payer Phone Subscriber Number Group Number Insured Name Patient Relationship to Insured Coverage Start Date Coverage End Date [employer] [place] [address] [place] [address] [id number] MYRA PICKARD Self - patient is the insured 3 [employer] [facility] [employer] e [address] [place] [address] [id number] MYRA PICKARD Self - patient is the insured 3 Dental [employer] [place] [address] [place] [address] [id number] MYRA PICKARD Self - patient is the insured 3
--- OUTSIDE RECORDS SUMMARY | 2024-12-15 09:04 | XMS_ITS | Clinical Summary ---
Author Organization [facility] Address [address] [place] [address] Care Team Providers Care Laser Print Operator Name Role Phone Marionnazia Franklin Olmos DO Unavailable [phone] Jenaro Valadez DO Primary Care Provider [phone] Carlos A Bolanos Unavailable [phone] Allergies Active Allergy Reactions Criticality Noted Date Comments Isosorbide Mononitrate Other: See Comments 07/2014 Headache Penicillins Anaphylaxis 11/04/2013 Medications metFORMIN 1,000 mg tablet Take 1 tablet by mouth twice daily with meals. 0 11/08/19 14 Active Pregabalin (LYRICA) 200 mg capsule Take 1 capsule by mouth three times daily. 0 11/06/19 14 Active glimepiride (AMARYL) 2 mg tablet Take 2 mg by mouth twice daily with meals. Active rOPINIRole (REQUIP) 1 mg tablet Take 1 mg by mouth three times daily. Active aspirin, enteric coated (ASPIRIN, ENTERIC COATED) 81 mg EC tablet Take 1 tablet by mouth once daily. 90 tablet 3 06/09/19 16 Active cyclobenzaprine (FLEXERIL) 5 mg tablet Take 1 tablet by mouth three times daily as needed for Muscle Spasm. 30 tablet 0 02/16/20 16 Active traMADol (ULTRAM) 50 mg tablet Take 1 tablet by mouth every 6 hours as needed for Pain. 30 tablet 0 02/16/20 16 Active COMPOUNDED PRESCRIPTION Dispense ---Walker Diagnosis: Physical weakness and inability to perform ADL without assistance after hospitalization due to acute metabolic encephalopathy 1 Each 0 03/07/20 16 Active losartan-hydroch lorothiazide (HYZAAR) 100-25 mg per tablet Take 1 tablet by mouth once daily. 90 tablet 3 07/21/19 17 Active metoprolol succinate ER (TOPROL XL) 50 mg 24 hr tablet Take 1 tablet by mouth once daily. 90 tablet 3 07/21/19 17 Active ranolazine SR (RANEXA) 1,000 mg Tb12 Take 1 tablet by mouth twice daily. 180 tablet 3 12/02/19 17 Active atorvastatin (LIPITOR) 80 mg tablet Take 1 tablet by mouth once daily. 90 tablet 3 12/02/19 17 Active clopidogrel (PLAVIX) 75 mg tablet Take 1 tablet by mouth once daily. 90 tablet 3 04/28/20 17 Active Omeprazole 40 mg capsule Take 40 mg by mouth once daily. 06/22/19 18 Active latanoprost (XALATAN) 0.005 % ophthalmic solution Use 1 Drop in both eyes daily at bedtime. 06/22/19 18 Active metoprolol tartrate, short acting, (LOPRESSOR) 100 mg tablet Take 100 mg by mouth twice daily. Active nitroglycerin sublingual (NITROQUICK) 0.4 mg SL tablet Dissolve 0.4 mg under the tongue every 5 minutes as needed. Active amLODIPine (NORVASC) 5 mg tablet Take 5 mg by mouth once daily. 07/15/19 18 Active Active Problems Patient Care Coordination No te Formatting of this note migh t be different from the original. ASSESSMENT & PLAN Mr. Feldman is a 50 year old male with significant past medical history of hypertension, dyslipidemia, CAD s/p AFRICA x 3 to RCA (last 07/2015), restless leg syndrome, diabetes mellitus type II and CKD III (baseline serum creatinine ~1.6) who presents as a transfer from [facility] for ongoing evaluation and treatment of altered mental status and ROEL on CKD III. Possible sepsis vs hypovolemia. Interval Events: 02/21: Admitted to [facility] MICU from OSH ED with AMS. Intubated on arrival at OSH for airway protection prior to transfer 02/22-02/24: A Fib RVR while on IHD which had to be stopped. Rates in 160s. Did not respond to Metoprolol x 3, Digoxin and Diltiazem Drip. Started on Amiodarone and converted to NSR. Remains on Amio this AM. No improvement in Mental status 02/25-02/26: Improvement in mental status. Large watery BMs overnight - CT A/P w/ colitis. Remains on PO Amiodarone for A Fib 02/27: No acute events overnight. Extubated without incident in AM 02/28: No acute overnight events 03/01: No acute overnight events, MS improved, afebrile, HD stable PLAN FOR THE DAY: # AMS: Initially thought to be related to uremic encephalopathy though no improvement despite decrease in BUN. Infectious work up NGTD, remains on broad spectrum antibiotics. Procalcitonin elevated to 0.75, elevated CRP and ESR. Concern for Meningitis vs Encephalitis. LP not possible due to DAPT. Plavix held 02/24 and LP planned for 02/28. MRI Brain with abnormal signal in corpus callosum. (Donny's vs Parkinson's vs Vit B12 deficiency vs HIV vs Syphilis) - LP today by IR , restart Plavix after - continue soft diet # Diarrhea: FMS placed 02/25. CT A/P w/ distal descending and sigmoid colitis (Ishcemic from hypoperfusion). CORS on board. Will continue Abx and maintain SBP > 110 # Respiratory: stable # ROEL: ATN from prolonged hypovolemia. S/p 1 session of IHD 02/21 c/w A Fib. Resolving, no need for IHD # Atrial Fibrillation: Triggers: Sepsis vs electrolyte abnormalities while being on IHD. In NSR this AM. Continue to monitor electrolytes. Continue to monitor QTc (prolonged to 480-500). Will replete K+ and Mg+ to maintain K > 4 and Mg >2 Amio loaded x2. Discontinue amiodarone today # Disposition: To be transferred to [facility], skilled for acute rehab. Neuro # Altered Mental Status: - AAO x 3 at baseline. Had been lethargic for the past few days since being discahrged from [facility] - CT brain at OSH negative for acute intracranial process - Pt was sedated with propofol and midazolam at OSH. No improvement in mentation after stopping sedation - BUN 110 and Cr 6.88 on admission --> Trended down to 60 with 1 hour of IHD --> Continued to trend downwards during the hospital stay - EEG here showed diffuse encephalopathy but no epileptiform discharges or seizures. - Infectious work up negative to date. Strep Pneumo Ag +ve - MRI Brain 02/25: Abnormal Signal in splenium of corpus callosum - Echo 02/25 - No vegetation DDx: Septic encephalopathy vs meningitis/ encephalitis vs vs HIV vs syphilis vs Donny's PLAN: - Hypoglycemia - Resolved - Remains altered despite decreasing BUN - Likely not the reason for encephalopathy - Needs LP but was on DAPT and risk of bleeding is high. Plavix held 02/24 (planning to hold for 5 days) - Continue Vanc and Agustin (IRON ERECTOR dosing) as well as Acyclovir (for possible herpes encephalitis) - ID following. Appreciate Recs Cardiovascular: # CAD s/p PCI: - Hx of drug-eluting stent to distal RCA on 11/04/13 and drug-eluting stent to mid RCA on 07/27/15 - Echo 02/12/16 with an EF of 65 %. Normal RV - EKG stable. Trop and CKMB normal on admission - On Dual antiplatelet therapy, beta lamont, calcium channel lamont, high- intensity statin, and Ranexa PLAN: - Continue aspirin. Plavix held 02/24 for LP planned for 02/28. To be restarted after LP - Continue statin and Ranexa - Continue metoprolol - Holding antihypertensives # Atrial Fibrillation: - Patient went in to A Fib RVR 02/21 with rates in 160s - Triggers: Sepsis vs electrolyte abnormalities while being on IHD - Treated with Metoprolol x 3, Diltiazem Drip, Loaded with digoxin and then Amiodarone after which the patient converted to NSR on the morning of 02/21 - Had to be loaded with IV amiodarone again on 02/23 as patient went back in to A Fib and RVR PLAN: - Stop amiodarone, in NSR, was likely provoked Afib - Restarted home metoprolol with holding parameters - [id number] - 3, not on AC at this time # Essential HTN: - On home Norvasc 10 mg and Metoprolol 100 mg BID - Restarted home Norvasc 5 mg on 02/24 and Metoprolol 50 mg TID 02/23 Respiratory - Intubated for protection of airway - Also had VQ scan at OSH which was negative for any perfusion deficits PLAN: - Daily CXR - Wean down FiO2 as tolerated. Daily SBT Hematology: - No issues ID: # Fevers: - Met SIRS criteria and possible sepsis. HR>90, RR>20, WBC 25K - Infectious work-up sent prior to transfer to the CICU -- Remained -ve at OSH - Source of fevers unclear at this time. Procalcitonin elevated to 0.75. ESR/CRP elevated as well - Resp Cx Few Gram positive cocci in pairs and rare GP Bacilli. Likely not the source of infection DDx: LRTI (HCAP due to recent hospital admission) vs aspiration pneumonitis vs menigitis vs encephalitis PLAN: - F/u Infectious work-up - Continue empiric antibiotics -> Vanc 02/21 -* and Meropenem 02/21 -* as well as Acyclovir 02/24 -* - Needs LP but was on DAPT and risk of bleeding is high. Plavix held 02/24 (planning to hold for 3 days prior to attempting LP on 02/29/2016 - Could be low yield) - MRI Brain 02/25 - Abnormal signal in splenium of corpus callosum (vast differential with infectious causes being syphilis and HIV). F/u HIV and serum syphilis work- up - Echo 02/25 - No vegetation Renal/Electrolytes # ROEL on CKD: - Baseline SCr 1.4-1.6. SCr on presentation was 7.75 - FeNa 2.1 & FeUrea 47.4 % more compatible with intrinsic renal injury. UA with muddy brown casts --> ATN from prolonged hypovolemia - NTDC line placed on admission - one session of IHD on 02/21 (Terminated after one hour due to Atrial Fibrillation with RVR) -- Line removed 02/27 PLAN: - Avoid nephrotoxins - Hold home lisinopril - Monitor strict I/O and BUN/SCr - Nephrology consulted - Appreciate Recs # Hypernatremia: - Noted 02/24 with Na of 148 PLAN: - Treated with Free H20 Flushes with Tube feeds to correct the free water deficit - Treat with D5 if unable to correct - Trend Na levels Endo: #Type II DM - Patient was hypoglycemic at the OSH with BG down to 27 s/p D5 gtt - Hold metformin and glimepiride PLAN: - MICU insulin infusion protocol DVT PPx: Heparin GI PPx: Protonix Code status: Full Code Problem Noted Date Diagnosed Date Obesity, Class I, BMI 30-34.9 E66.9 09/11/2017 Mixed hyperlipidemia 07/17/2015 Overview (07/28/2015): Cont home atorva Dyspnea 08/04/2014 Sleep apnea 08/04/2014 CAD S/P percutaneous coronary angioplasty 2013 Overview (03/07/2016): CAD (s/p AFRICA to mPDA and PLV of RCA in 11/2013 and recent PCI on 07/2015 Plan - asa and plavix - atorva 40 mg (due to drug interaction with ranalazine) - metoprolol 50 mg bid - ranolazine Hypertension 11/05/2013 Overview (02/13/2016): Continue home amlodipine 10mg QD Metoprolol 50mg bid Lisinopril on hold Monitor BP regularly Tobacco abuse 11/05/2013 Diabetes type 2, uncontrolled Restless leg syndrome Overview (07/28/2015): Cont home ronipirole and lyrica Fibromyalgia Overview (02/16/2016): Will need to get back off opioids Encourage use of tylenol and pregabalin GERD (gastroesophageal reflux disease) CAD (coronary artery disease) Hydrocele Arthritis Kidney infection Neck pain Renal failure Smoker Chronic anticoagulation Overview (05/05/2016): plavix Resolved Problems Problem Noted Date Diagnosed Date Resolved Date Disorientation 03/07/2016 03/07/2016 Overview (03/07/2016): At presentation patient had AMS and needed intubation to protect airway as patient had copious secretions. Possible causes: Uremic encephalopathy vs Sepsis vs Cardiogenic shock vs IRON ERECTOR infection vs IRON ERECTOR disorder Patient came in with S urea>100 and S creat 7. Both resolved with supportive management. CVVHD needed for 2 days in MICU. Patient had elevated white count at presentation. HD unstable. Needed intubation. Pressor support. Strep pneumo antigen +ve. Found to have CT evidence of colitis during admission. ?Source for sepsis LP--Negative for infection MRI brain showed transient lesion in splenium of corpus callosum which resolved on subsequent MRI. A: AOx3, dysarthria with diffuse hypertonicity P:Outpatient f/u with neurology. Conservative management with PT. Discharge to SNF. Atrial fibrillation with rap id ventricular response 03/07/2016 03/07/2016 Overview (03/07/2016): Patient developed A fib with RVR during early hospitalization. Was HD unstable at time. Uremic. Did not respond to BB or calcium channel lamont. Loaded with amiodarone with resolution. A: Resolved. Not in A fib. Currently on metoprolol for HTN. P: Follow up intermittently with EKG at PCP office Sepsis 02/22/2016 03/07/2016 Somnolence 02/22/2016 03/07/2016 Overview (03/07/2016): At presentation patient had AMS and needed intubation to protect airway as patient had copious secretions. Possible causes: Uremic encephalopathy vs Sepsis vs Cardiogenic shock vs IRON ERECTOR infection vs IRON ERECTOR disorder Patient came in with S urea>100 and S creat 7. Both resolved with supportive management. CVVHD needed for 2 days in MICU. Patient had elevated white count at presentation. HD unstable. Needed intubation. Pressor support. Strep pneumo antigen +ve. Found to have CT evidence of colitis during admission. ?Source for sepsis LP--Negative for infection MRI brain showed transient lesion in splenium of corpus callosum which resolved on subsequent MRI. A: AOx3, dysarthria with diffuse hypertonicity P:Outpatient f/u with neurology. Conservative management with PT. Discharge to SNF. Hypovolemia 02/22/2016 03/07/2016 Pain of right upper extremity 02/13/2016 03/07/2016 Overview (02/16/2016): Persistent, reproducible right arm pain. Started suddenly on morning of admission Very unlikely cardiac in etiology CT Cervical spine No fracture of cervical spine.Slight dextroconvex scoliosis otherwise normal alignment.Right neural foraminal narrowing at C7/T1. There could be mass effect upon the exiting right C8 nerve root. Mild disc bulge at C6/C7 eccentric to the left MRI 02/15/16: Small eccentric disc protrusion at C6-7 without significant impact on the cord. Mild bony foraminal narrowing as detailed above. Plan - appreciate final spine recs - d/c or transfer service - need to decrease opioids; move to tylenol, tramadol and flexeril Right arm pain 02/13/2016 03/07/2016 ROEL (acute kidney injury) 02/13/2016 Overview (03/07/2016): - Baseline SCr 1.4-1.6. SCr on presentation was 7.75 now at b/l 1.3 (CKD 3 at baseline) -Patient had elevated CK and myoglobin at presentation -UA showed muddy brown casts consistent with ATN -Needed CVVHD for 2 days in MICU -Recovery with fluid and antibiotic support - Avoid nephrotoxins, trend Cr Right leg swelling 01/18/2016 6 Unstable angina 07/27/2015 03/07/2016 Overview (07/28/2015): Patient is now s/p AFRICA to RCA. Currently chest pain free. - asa and plavix - atorva 80 mg - metoprolol 100 mg bid - will add lisinopril - smoking cessation - cardiac rehab DM (diabetes mellitus) 11/05/201303/07 Overview (02/13/2016): A1c 5.9. -Hold oral meds -ISS with meals and bedtime Immunizations Immunization Administration Dates Next Due influenza (IIV4) vaccine, ag e 6 mo - 64 yr, quadrivalent, PF (AFLURIA, FLUARIX, FLULAVAL, FLUZONE) 03/07/2016 pneumococcal polysaccharide (PPV23) vaccine, 23 valent (PNEUMOVAX 23) 02/22/2016 Family History Medical History Relation Comments None Brother None Father Heart Maternal Grandfather age 52 heart failure Diabetes Mother Heart Mother Relation Status Comments Brother Father Maternal Grandfather Mother Social History Tobacco Use Types Packs/Day Years Used Date Smoking Tobacco: Every Day Cigarettes 0.5 47.1 Started: 11/18/1977 Smokeless Tobacco: Former Quit: 11/04/2013 Alcohol Use Standard Drinks/Week Comments No 0 (1 standard drink = 0.6 oz pur e alcohol) Area Deprivation Index Answer Date Sagar rded National Score (1-100), lower number is lower ri sk Not on file 05/10/2020 State Score (1-10), lower number is lower risk N ot on file 05/10/2020 Data from: https://www.neighborhoodatlas.medicine.[facility]/. Last address used for calculation Not on file 05/10/2020 Sex and Gender Information Value Date Recorded Sex Assigned at Not on file Legal Sex Male 9:56 AM EST Gender Identity Not on file Sexual Orientation Not on file Occupation Industry Job Start Date Job End Date Retired Not on file Not on file Not on file Last Filed Vital Signs Vital Sign Reading Time Taken Comments Blood Pressure 123/70 09/11/2017 9:28 AM EDT Pulse 67 09/11/2017 9:28 AM EDT Temperature 36.8 C (98.3 F) 03/07/2016 2:00 PM EDT Respiratory Rate 18 09/11/2017 9:28 AM EDT Oxygen Saturation 98% 09/11/2017 9:28 AM EDT Inhaled Oxygen Concentration - - Weight 115.2 kg (254 lb) 09/11/2017 9:28 AM EDT Height 182.9 cm (6') 09/11/2017 9:28 AM EDT Body Mass Index 34.45 09/11/2017 9:28 AM EDT Plan of Treatment Health Maintenance Due Date Last Done Comments Anxiety Screening 1983 Depression Screening 1983 Hepatitis C Screening 1983 DTaP,Tdap,Td Vaccine (1 - Tdap) 1984 CT Colonography 2010 Cologuard (FIT-DNA) 2010 Colonoscopy 2010 Colorectal Cancer Screening 2010 Fecal Occult Blood 2010 Prostate Cancer Screening Discussion 2010 Sigmoidoscopy 2010 Shingrix Vaccine (1 of 2) 2015 Pneumococcal Vaccine: 50+ (2 of 2 - PCV) 02/21/2017 02/22/2016 Diabetes Screening 03/07/2019 03/07/2016, 1 , 03/05/2016, Additional history exists Lipid Screening 02/13/2021 02/14/2016 Covid-19 Vaccine (1 - 2023-2 5 season) 2024 Influenza Vaccine (#1) 2025 03/07/2016 HIV Screening Completed 02/27/2016 Procedures Procedure Name Priority Date/Time Associated Diagnosis Comments COMPREHENSIVE METABOLIC PANEL STAT 03/07/2016 7:19 AM EDT HIV 1/2 COMBO WITH REFLEX TO DIFFERENTIATION STAT 02/27/2016 9:41 AM EDT LIPID PANEL, FASTING Routine 02/14/2016 4:43 AM EDT from Last 3 Months or Most Recently Relevant to Health Maintenance Results * (ABNORMAL) COMP METABOLIC PANEL (03/07/2016 7:19 AM EDT) Pathologist [facility] Protein, Total 6.7 6.3 - 8.0 g/dL 03/07/2016 8:28 AM EDT [facility] Albumin 3.2(L) 3.9 - 4.9 g/dL 03/07/2016 8:28 AM [facility] Calcium 9.2 8.5 - 10.5 mg/dL 03/07[facility]2016 [facility] Bilirubin, Total 0.5 0.2 - 1.3 mg/dL 03/07/2016 8:28 AM T [facility] Alkaline Phosphatase 122(H) 36 - 108 U/L 03/07/2016 8:28 AM [facility] AST 28 14 - 40 U/L 03/07/2016 8:28 AM [facility] Glucose 122(H) 74 - 99 mg/dL 03/07/2016 8:28 AM [facility] BUN 18 9 - 24 mg/dL 03/07/2016 8:28 AM [facility] Creatinine 1.37(H) 0.73 - 1.22 mg/dL 03/07/2016 8:[facility] Sodium 137 136 - 144 mmol/L 03/07/2016 8:28 AM [facility] Potassium 4.4 3.7 - 5.1 mmol/L 03/07/2016 8:28 AM [facility] Chloride 99 97 - 105 mmol/L 03/07/2016 8:28 AM [facility] CO2 25 22 - 30 mmol/L 03/07/2016 8:28 AM [facility] Anion Gap 13 9 - 18 mmol/L 03/07/2016 8:28 AM EDT [facility] ALT 38 10 - 54 U/L 03/07/2016 8:28 AM EDT [facility] eGFR- >60 03/07/2016 8:28 AM EDT [facility] eGFR-All Other Races 55 . 03/07/2016 8:28 AM EDT [facility] Comment: eGFR (Estimated GFR) Units of measure: mL/min/1.73 meters squared eGFR is derived from the reexpressed MDRD Study equation using the following parameters: serum creatinine, age, gender and race. The creatinine assay has been calibrated to be traceable to IDMS. An eGFR <60 mL/min/1.73m2 for >3 months is consistent with chronic kidney disease. Refer to KDOQI guidelines for clinical interpretation. In patients with unstable renal function, e.g. those with acute kidney injury, the eGFR may not accurately reflect actual GFR. Blood specimen (specimen) BLOOD SPECIMEN / Unknown 03/07/2016 7:19 AM EDT 03/07/2016 7:20 AM EDT us Hashim (Hist) Maria Luz [facility] Final Res ult [facility] [address] [place] [address] * HIV 1,2 COMBO (AG/AB) (02/27/2016 9:41 AM EDT) HIV 12 Combo (Ag/Ab) Non Reactive Non Reactive 02/27/2016 8:39 PM EDT [facility] Comment: (NOTE) HIV Information: [place] Rev. Code 3701.243(E): This information has been disclosed to you from confidential records protected from disclosure by state law. You shall make no further disclosure of this information without the specific, written, and informed release of the individual to whom it pertains, or as otherwise permitted by state law. A general authorization for the release of medical or other information is not sufficient for the purpose of the release of HIV test results or diagnoses. Blood specimen (specimen) BLOOD SPECIMEN / Unknown 02/27/2016 9:41 AM EDT 02/27/2016 10:04 AM EDT us Christiano Chan DO LABORATORY Final Result Performing Organization Address [facility]/ZIP Co de Phone Number [facility] [address] [place] [address] * (ABNORMAL) LIPID PANEL BASIC (02/14/2016 4:43 AM EDT) Triglyceride 175(H) 30 - 149 mg/dL 02/14/2016 6:48 AM EDT [facility] Cholesterol, Total 121 100 - 199 mg/dL 02/14/2016 6:48 AM EDT [facility] HDL Cholesterol 22(L) >45 mg/dL 6 6:48 AM EDT [facility] VLDL Cholesterol 35 6 - 40 mg/dL 02/14/2016 6:48 AM EDT [facility] LDL Cholesterol, Calculated 64 60 - 129 mg/dL 02/14/2016 6:48 AM EDT [facility] Fasting Time Unknown hrs 02/14/2016 6:48 AM EDT [facility] TC:HDL Ratio 5.50(H) 1.00 - 5.00 02/14/2016 6:48 AM EDT [facility] LDL:HDL Ratio 2.91 0.50 - 3.55 02/14/2016 6:48 AM EDT [facility] Non HDL Cholesterol 99 90 - 159 mg/dL 02/14/2016 6:48 AM EDT [facility] Blood specimen (specimen) BLOOD SPECIMEN / Unknown 02/14/2016 4:43 AM EDT 02/14/2016 4:44 AM EDT us Obie Leos MD LABORATORY Final Result Performing Organization Address City/[facility]/ZIP Co de Phone Number [facility] [address] [place] [address] from Last 3 Months or Most Recently Relevant to Health Maintenance Insurance [address] [place] [address] [employer] Advance Directives * DNR/Comfort Care (Latest Code Status on File) Date Activated Date Inactivated Comments 02/29/2016 11:07 AM 02/29/2016 11:08 AM Question Answer Comments DNR Order Discussed With: Surrogate Decision Ryan er Care Teams Laser Print Operator Relationship Specialty Start Date End Date Jenaro Valadez DO [address] [place] [address] PCP - General Family Medicine 10/26/16 Franklin Link DO Referring Orthopedics 10/26/16 Carlos A Bolanos [address] [place] [address] [place] [address] Primary Staff Physician Cardiology 08/21/18
--- OUTSIDE RECORDS SUMMARY | 2024-12-15 09:04 | XMS_ITS | Patient Health Record ---
Author Organization [facility] Address [address] [place] [address] Support Name Relationship Address Phone Yamileth Feldman Emergency Contact [address] [place] [address] [address] [place] [address] MYRA FELDMAN Guarantor Unknown [phone] Reason For Referral No Information Plan Of Treatment No Information Insurance Providers Payer Name Payer Address Payer Phone Subscriber Number Group Number Insured Name Patient Relationship to Insured Coverage Start Date Coverage End Date [facility] [address] [place] [address] [id number] MYRA FELDMAN Self - patient is the insured
--- OUTSIDE RECORDS SUMMARY | 2024-12-15 09:04 | XMS_ITS | Encounter Summary ---
Author Organization [facility] Address [address] [place] [address] Phone Care Team Providers Care Rag Sorter Name Role Phone Jenaro Valadez DO Primary Care Provider [phone] Jenaro Valadez DO Primary Care Provider [phone] Encounter Details Date Type Department Care Team (Late st Contact Info) Description 10/30/2024 Scanned Document [facility] [address] [place] [phone] Scanning, Generic Provider Social History Tobacco Use [...] Info) Description 12/18/2024 8:00 AM EDT Appointment [address] [address] 12/18/2024 8:30 AM EDT Appointment [address] [address] 12/18/2024 9:00 AM EDT Appointment [address] [address] 12/18/2024 9:30 AM EDT Appointment [facility] [address] [facility] [address] [place] [phone] 12/18/2024 9:45 AM EDT Appointment [facility] [address] [facility] [address] [place] [address] 12/24/2024 10:00 AM EDT Office Visit [place] [address] [place] [phone] Oumar Sandoval MD [address] [facility] [address], [address] [place] [address] documented as of this encounter Procedures Procedure Name Priority Date/Time Associated Diagnosis Comments OUTSIDE IMAGING SCAN 10/30/2024 documented in this encounter Results * OUTSIDE IMAGING SCAN (10/30/2024) Anatomical Region Laterality Modality Other Narrative 10/30/2024 Ordered by an unspecified provider. us Generic Provider Scanning OUTSIDE SCAN Final Result documented in this encounter Visit Diagnoses Not on filedocumented in this encounter Care Teams Rag Sorter Relationship Specialty Start Date End Date Jenaro Valadez DO PCP - General 04/17/19 11/03/24 Jenaro Valadez DO [address] [place] [address] PCP - General Family Medicine 11/04/24 documented as of this encounter
--- OUTSIDE RECORDS SUMMARY | 2024-12-15 09:04 | XMS_ITS | Encounter Summary ---
Author Organization [facility] Address [address] [place] [address] Phone Care Team Providers Care Business Process Manager Name Role Phone Jenaro Valadez DO Primary Care Provider [phone] Jenaro Valadez DO Primary Care Provider [phone] Encounter Details Date Type Department Care Team (Late st Contact Info) Description 03/04/2024 Scanned Document [facility] [address] [place] [phone] Scanning, Generic Provider Social History Tobacco Use [...] Info) Description 12/18/2024 8:00 AM EDT Appointment [address] [phone] 12/18/2024 8:30 AM EDT Appointment [address] [address] 12/18/2024 9:00 AM EDT Appointment [address] [address] 12/18/2024 9:30 AM EDT Appointment [facility] [address] [facility] [address] [place] [address] 12/18/2024 9:45 AM EDT Appointment [facility] [address] [facility] [address] [place] [phone] 12/24/2024 10:00 AM EDT Office Visit [address] [place] [phone] Oumar Sandoval MD [facility] [address] [place] [address] Scheduled Orders Name Type Priority Associated Diagnoses Orde r Schedule Ultrasound- OnBase Scan Imaging O rdered: 03/04/2024 documented as of this encounter Visit Diagnoses Not on filedocumented in this encounter Care Teams Business Process Manager Relationship Specialty Start Date End Date Jenaro Valadez DO PCP - General 04/17/19 11/03/24 Jenaro Valadez DO [facility] [place] [address] PCP - General Family Medicine 11/04/24 documented as of this encounter
--- OUTSIDE RECORDS SUMMARY | 2024-12-15 09:04 | XMS_ITS | Encounter Summary ---
Author Organization [facility] Address [address] [place] [address] Phone Care Team Providers Care Children'S Lunchroom Supervisor Name Role Phone Jenaro Valadez DO Primary Care Provider [phone] Jenaro Valadez DO Primary Care Provider [phone] Encounter Details Date Type Department Care Team (Late st Contact Info) Description 03/06/2024 Scanned Document [facility] [address] [place] [phone] Scanning, Generic Provider Social History Tobacco Use [...] Info) Description 12/18/2024 8:00 AM EDT Appointment [address] [address] 12/18/2024 8:30 AM EDT Appointment [address] [address] 12/18/2024 9:00 AM EDT Appointment [address] [address] 12/18/2024 9:30 AM EDT Appointment [facility] [address] [facility] [address] [place] [phone] 12/18/2024 9:45 AM EDT Appointment [facility] [address] [facility] [address] [place] [phone] 12/24/2024 10:00 AM EDT Office Visit [address] [place] [address] Oumar Sandoval MD [address] [facility] [address] [place] [address] documented as of this encounter Visit Diagnoses Not on filedocumented in this encounter Care Teams Children'S Lunchroom Supervisor Relationship Specialty Start Date End Date Jenaro Valadez DO PCP - General 04/17/19 11/03/24 Jenaro Valadez DO [place] [address] PCP - General Family Medicine 11/04/24 documented as of this encounter
--- OUTSIDE RECORDS SUMMARY | 2024-12-15 09:04 | XMS_ITS | Encounter Summary ---
Author Organization [facility] Address [address] [place] [address] Phone Care Team Providers Care Relationship Advisor Name Role Phone Jenaro Valadez DO Primary Care Provider [phone] Jenaro Valadez DO Primary Care Provider [phone] Encounter Details Date Type Department Care Team (Late st Contact Info) Description 10/11/2024 Scanned Document [facility] [address] [place] [phone] Scanning, Generic Provider Social History Tobacco Use [...] Description 12/18/2024 8:00 AM EDT Appointment [address] [address] 12/18/2024 8:30 AM EDT Appointment [address] [address] 12/18/2024 9:00 AM EDT Appointment [address] [address] 12/18/2024 9:30 AM EDT Appointment [facility] [address] [facility] [address] [place] [address] 12/18/2024 9:45 AM EDT Appointment [facility] [address] [facility] [address] [place] [address] 12/24/2024 10:00 AM EDT Office Visit [address] [place] [phone] Oumar Sandoval MD [address] [facility] [address] [place] [address] documented as of this encounter Visit Diagnoses Not on filedocumented in this encounter Care Teams Relationship Advisor Relationship Specialty Start Date End Date Jenaro Valadez DO PCP - General 04/17/19 11/03/24 Jenaro Valadez DO [facility] [place] [address] PCP - General Family Medicine 11/04/24 documented as of this encounter
--- OUTSIDE RECORDS SUMMARY | 2024-12-15 09:04 | XMS_ITS | Clinical Summary ---
Author Organization [facility] Address [address] [place] [address] Phone Care Team Providers Care Custom Stock Maker Name Role Phone Jenaor Valadez DO Primary Care Provider [phone] Allergies Active Allergy Reactions Criticality Noted Date Comments Latex Unknown 03/27/2023 Penicillins Anaphylaxis High 03/27/2023 Medications albuterol 90 mcg/actuation inhaler Inhale 2 puffs 2 times a day. Active atorvastatin (Lipitor) 80 mg tablet Take 1 tablet (80 mg) by mouth once daily at bedtime. Active clopidogrel (Plavix) 75 mg tablet Take 1 tablet (75 mg) by mouth once daily. Active empagliflozin (Jardiance) 10 mg Take 1 tablet (10 mg) by mouth once daily. Active glimepiride (Amaryl) 2 mg tablet Take 1 tablet (2 mg) by mouth 2 times a day. Active metFORMIN (Glucophage) 1,000 mg tablet Take 1 tablet (1,000 mg) by mouth every 12 hours. Active nitroglycerin (Nitrostat) 0.[address] under the tongue. 2 Active pregabalin (Lyrica) 200 mg capsule Take 1 capsule (200 mg) by mouth 3 times a day. Active rOPINIRole (Requip) 1 mg tablet Take 1 tablet (1 mg) by mouth 3 times a day. Active SITagliptin phosphate (Januvia) 100 mg tablet Take 1 tablet (100 mg) by mouth once daily. Active aspirin 81 mg EC tabletIndications :Hyperlipidemia, unspecified TAKE 1 TABLET BY MOUTH EVERY DAY 90 tablet 3 4 Active amitriptyline (Elavil) 100 mg tablet Take 1 tablet (100 mg) by mouth once daily. 4 Active Ajovy Autoinjector 225 mg/1.5 mL auto-injector Inject 1 Pen (225 mg) under the skin every 30 (thirty) days. 4 Active DULoxetine (Cymbalta) [address] capsule Take 1 capsule (60 mg) by mouth once daily. Do not crush or chew. Active ferrous sulfate, 325 mg ferrous sulfate, tablet Take 1 tablet by mouth once daily. Active loperamide (Imodium A-D) 2 mg tablet Take 1 tablet (2 mg) by mouth 4 times a day as needed for diarrhea. Active insulin lispro (HumaLOG) 100 unit/mL injection Inject under the skin. Take as directed per insulin instructions. Active magnesium oxide (Mag-Ox) 400 mg tablet 1 tablet (400 mg) 3 times a day. Active omeprazole OTC (PriLOSEC OTC) 20 mg EC tablet Take 2 tablets (40 mg) by mouth 2 times a day before meals. Do not crush, chew, or split. Active acetaminophen (Tylenol) 500 mg tablet Take by mouth every 8 hours if needed for mild pain (1 - 3). Active ascorbic acid (Vitamin C) 500 mg tablet Take 1 tablet (500 mg) by mouth once daily. Active tiZANidine (Zanaflex) 4 mg capsule Take 1 capsule (4 mg) by mouth once daily. Active sildenafil (Viagra) 100 mg tablet Take 1 tablet (100 mg) by mouth once daily as needed for erectile dysfunction. Active tamsulosin (Flomax) 0.4 mg 24 hr capsule Take 1 capsule (0.4 mg) by mouth 2 times a day. Active dulaglutide (Trulicity) 0.75 mg/0.5 mL pen injector Inject 0.75 mg under the skin 1 (one) time per week. Active metoprolol succinate XL (Toprol-XL) 25 mg 24 hr tabletIndications :Coronary artery disease involving tetlin coronary artery of tetlin heart without angina pectoris Take 1 tablet (25 mg) by mouth once daily. Do not crush or chew. 90 tablet 3 4 01/01/20 25 Active furosemide (Lasix) 40 mg tabletIndications :Localized edema Take 1 tablet (40 mg) by mouth once daily. 90 tablet 3 4 04/02/20 25 Active Active Problems Problem Noted Date Diagnosed Date CAD (coronary artery disease) 01/01/2024 COPD (chronic obstructive pulmonary disease) (Mu lti) 01/01/2024 Shortness of breath 01/01/2024 PVD (peripheral vascular disease) 01/01/2024 Symptomatic hypotension 01/01/2024 Encounter for pre-operative cardiovascular clear ance 10/24/2023 Former smoker 10/24/2023 Diabetes mellitus (Multi) 03/27/2023 History of PTCA 03/27/2023 Hyperlipidemia 03/27/2023 Palpitations 03/27/2023 Resolved Problems Problem Noted Date Diagnosed Date Resolved Date Essential hypertension 01/01/202412/31 Encounters Date Type Department Care Team Description 11/19/[address] [phone] Marie Chavez LPN Medical Advice/Question 11/17/2024 Travel 10/30/2024 Scanned Document [facility] [address] [place] [phone] Scanning, Generic Provider 10/26/2024 Scanned Document [facility] [address] [place] [address] Scanning, Generic Provider 10/11/2024 Telephone [facility] [address] [place] [phone] Elle Monique RN 10/11/2024 Scanned Document [facility] [address] [place] [address] Scanning, Generic Provider 10/10/2024 Scanned Document [facility] [address] [place] [address] Scanning, Generic Provider from Last 3 Months Family History Medical History Relation Name Comments Diabetes Mother Hypertension Mother bypass graft mechanical complication Mother Relation Name Status Comments Mother Social History Tobacco Use Types Packs/Day [...] Sign Reading Time Taken Comments Blood Pressure 102/58 01/17/2024 12:34 PM EDT Pulse 88 01/01/2024 9:01 AM EDT Temperature - - Respiratory Rate - - Oxygen Saturation - - Inhaled Oxygen Concentration - - Weight 95.7 kg (211 lb) 01/17/2024 12:34 PM EDT Height 182.9 cm (6') 01/17/2024 12:34 PM EDT Body Mass Index 28.62 01/17/2024 12:34 PM EDT Plan of Treatment Upcoming Encounters Date Type Department Care Team (Late st Contact Info) Description 12/18/2024 8:00 AM EDT Appointment [address] [address] 12/18/2024 8:30 AM EDT Appointment [address] [address] 12/18/2024 9:00 AM EDT Appointment [address] [address] 12/18/2024 9:30 AM EDT Appointment [address] [address] 12/18/2024 9:45 AM EDT Appointment [address] [address] 12/24/2024 10:00 AM EDT Office Visit [address] [place] [phone] Oumar Sandoval MD 703 [facility] 2, [facility] [address] [place] [address] Health Maintenance Due Date Last Done Comments CT Colonography 1965 Colonoscopy 1965 Colorectal Cancer Screening 1965 Creatinine Level 1965 Diabetes: Hemoglobin A1C 1965 Diabetes: Urine Protein Screening 1965 FIT-DNA (Cologuard) 1965 FIT 1965 HIV Screening 1965 Lipid Panel 1965 Potassium Level 1965 Sigmoidoscopy 1965 Yearly Adult Physical 1965 MMR Vaccines (1 of 1 - Standard series) 1966 Diabetes: Retinopathy Screening 1975 Hepatitis C Screening 1983 Hepatitis B Vaccines (1 of 3 - 19+ 3-dose series) 1984 Zoster Vaccines (1 of 2) 2015 Pneumococcal Vaccine (2 of 2 - PCV) 03/05/2019 03/05/2018, 02/22/2016 COVID-19 Vaccine ( season) 2024 11/13/2020, 10/23/2020 Influenza Vaccine (#1) 2025 9, 04/02/2018, 03/05/2018, Additional history exists Echocardiogram 10/10/2025 10/10/2024, 02/04, 01/17/2024 DTaP/Tdap/Td Vaccines (2 - Td or Tdap) 08/05/2033 08/06/2023 HIB Vaccines Aged Out No longer eligi ble based on patient's age to complete this topic HPV Vaccines (No Doses Required) Completed Hepatitis A Vaccines Aged Out No long er eligible based on patient's age to complete this topic IPV Vaccines Aged Out No longer eligi ble based on patient's age to complete this topic Meningococcal Vaccine Aged Out No bárbara kayy eligible based on patient's age to complete this topic Rotavirus Vaccines Aged Out No longer eligible based on patient's age to complete this topic Procedures Procedure Name Priority Date/Time Associated Diagnosis Comments OUTSIDE IMAGING SCAN 10/30/2024 ECHOCARDIOGRAM 10/10/2024 from Last 3 Months Results * OUTSIDE IMAGING SCAN (10/30/2024) Anatomical Region Laterality Modality Other Narrative 10/30/2024 Ordered by an unspecified provider. us Generic Provider Scanning OUTSIDE SCAN Final Result * Echocardiogram (10/10/2024) Narrative 10/10/2024 Ordered by an unspecified provider. us Generic Provider Scanning CV ECHO PROCEDURES Fin al Result from Last 3 Months Insurance MEDICAID Care Teams Custom Stock Maker Relationship Specialty Start Date End Date Jenaro Valadez DO [address] [place] [address] PCP - General Family Medicine 11/04/24
--- OUTSIDE RECORDS SUMMARY | 2024-12-15 09:04 | XMS_ITS | Encounter Summary ---
Author Organization [facility] Address [address] [place] [address] Phone Care Team Providers Care Certified Pharmacy Technician Name Role Phone Jenaro Valadez DO Primary Care Provider [phone] Jenaro Valadez DO Primary Care Provider [phone] Encounter Details Date Type Department Care Team (Late st Contact Info) Description 03/03/2024 Scanned Document [facility] [address] [place] [phone] Scanning, Generic Provider Social History Tobacco Use [...] Info) Description 12/18/2024 8:00 AM EDT Appointment [address] [address] 12/18/2024 8:30 AM EDT Appointment [address] [address] 12/18/2024 9:00 AM EDT Appointment [address] [address] 12/18/2024 9:30 AM EDT Appointment [facility] [address] [facility] [address] [place] [address] 12/18/2024 9:45 AM EDT Appointment [facility] [address] [facility] [address] [place] [phone] 12/24/2024 10:00 AM EDT Office Visit [place] [address] [place] [phone] Oumar Sandoval MD [address]03 [facility] [address] [place] [address] documented as of this encounter Procedures Procedure Name Priority Date/Time Associated Diagnosis Comments OUTSIDE IMAGING SCAN 03/03/2024 ECHOCARDIOGRAM 03/03/2024 documented in this encounter Results * Echocardiogram (03/03/2024) Narrative 03/03/2024 Ordered by an unspecified provider. Generic Provider Scanning CV ECHO PROCEDURES Fin al Result * OUTSIDE IMAGING SCAN (03/03/2024) Anatomical Region Laterality Modality Other Narrative 03/03/2024 Ordered by an unspecified provider. us Generic Provider Scanning OUTSIDE SCAN Final Result documented in this encounter Visit Diagnoses Not on filedocumented in this encounter Care Teams Certified Pharmacy Technician Relationship Specialty Start Date End Date Jenaro Valadez DO PCP - General 04/17/19 11/03/24 Jenaro Valade[place] [address] PCP - General Family Medicine 11/04/24 documented as of this encounter
--- OUTSIDE RECORDS SUMMARY | 2024-12-15 09:04 | XMS_ITS | Encounter Summary ---
Author Organization [facility] Address [address] [place] [address] Phone Care Team Providers Care Skip Tender Name Role Phone Jenaro Valadez DO Primary Care Provider [phone] Jenaro Valadez DO Primary Care Provider [phone] Encounter Details Date Type Department Care Team (Late st Contact Info) Description 10/26/2024 Scanned Document [facility] [address] [place] [phone] Scanning, Generic Provider Social History Tobacco Use [...] Info) Description 12/18/2024 8:00 AM EDT Appointment [address] [address] 12/18/2024 8:30 AM EDT Appointment [address] [address] 12/18/2024 9:00 AM EDT Appointment [address] [address] 12/18/2024 9:30 AM EDT Appointment [facility] [address] [facility] [address] [place] [phone] 12/18/2024 9:45 AM EDT Appointment [facility] [address] [facility] [address] [place] [address] 12/24/2024 10:00 AM EDT Office Visit [address] [place] [phone] Oumar Sandoval MD 703 [facility] [address], [address] [place] [address] documented as of this encounter Visit Diagnoses Not on filedocumented in this encounter Care Teams Skip Tender Relationship Specialty Start Date End Date Jenaro Valadez DO PCP - General 04/17/19 11/03/24 Jenaro Valadez DO [facility] [place] [address] PCP - General Family Medicine 11/04/24 documented as of this encounter
--- OUTSIDE RECORDS SUMMARY | 2024-12-15 09:04 | XMS_ITS | Encounter Summary ---
Author Organization [facility] Address [address] [place] [address] Phone Care Team Providers Care Business Administration Instructor Name Role Phone Jenaro Valadez DO Primary Care Provider [phone] Jenaro Valadez DO Primary Care Provider [phone] Encounter Details Date Type Department Care Team (Late st Contact Info) Description 10/10/2024 Scanned Document [facility] [address] [place] [phone] Scanning, Generic Provider Social History Tobacco Use [...] Info) Description 12/18/2024 8:00 AM EDT Appointment [address] [address] 12/18/2024 8:30 AM EDT Appointment [address] [address] 12/18/2024 9:00 AM EDT Appointment [address] [address] 12/18/2024 9:30 AM EDT Appointment [facility] [address] [facility] [address] [place] [phone] 12/18/2024 9:45 AM EDT Appointment [facility] 703 [facility] [address] [place] [phone] 12/24/2024 10:00 AM EDT Office Visit [place] [address] [place] [phone] Oumar Sandoval MD 703 [facility] [address] [place] [address] documented as of this encounter Procedures Procedure Name Priority Date/Time Associated Diagnosis Comments ECHOCARDIOGRAM 10/10/2024 documented in this encounter Results * Echocardiogram (10/10/2024) Narrative 10/10/2024 Ordered by an unspecified provider. us Generic Provider Scanning CV ECHO PROCEDURES Fin al Result documented in this encounter Visit Diagnoses Not on filedocumented in this encounter Care Teams Business Administration Instructor Relationship Specialty Start Date End Date Jenaro Valadez DO PCP - General 04/17/19 11/03/24 Jenaro Valadez DO [address] [place] [address] PCP - General Family Medicine 11/04/24 documented as of this encounter
--- OUTSIDE RECORDS SUMMARY | 2024-12-15 09:04 | XMS_ITS | Clinical Summary ---
Author Organization [facility] Healthcare Address [address] [place] [address] Care Team Providers Care Freight Rate Specialist Name Role Phone Jenaro Valadez DO Unavailable Jenaro Valadez DO Primary Care Provider [phone] Allergies Active Allergy Reactions Criticality Noted Date Comments Acetaminophen Low 07/31/2023 Other Reaction(s): Vomiting Isosorbide Nitrate Other Low 08/04/2014 Headache Latex Dermatitis,Itching,R jeannette,Unknown Low 03/27/2023 Oxycodone Low 07/31/2023 Other Reaction(s): Vomiting Penicillins Anaphylaxis,Hives High 11/04/2013 Oxycodone-Acetaminophen 03/14/2017 Propoxyphene 03/14/2017 Darvocet Tamsulosin Hives Low 07/31/2023 Medications tamsulosin (Flomax) 0.4 MG 24 hr capsule Take 1 capsule (0.4 mg total) by mouth nightly. 4 Active dulaglutide (Trulicity) 0.75 MG/0.5ML solution pen-injector Inject 0.5 mL (0.75 mg total) under the skin once a week. 4 Active sildenafil (Viagra) 100 MG tablet TAKE 1 TABLET BY MOUTH EVERY DAY NEEDED 3 Active omeprazole (PriLOSEC) [address] capsule 1 capsule 30 minutes before morning meal Orally Once a day Active Spiriva Respimat 2.5 MCG/ACT inhaler INHALE 2 PUFFS BY MOUTH ONCE DAILY 3 Active empagliflozin (Jardiance) 10 MG Take 1 tablet (10 mg total) by mouth in the morning. Active nitroglycerin (Nitrostat) 0.[address] 1 tablet (0.4 mg total) under the tongue every 5 (five) minutes as needed for chest pain. Active pregabalin (Lyrica) 200 MG capsule TAKE 1 CAPSULE BY MOUTH THREE TIMES A DAY Active metoprolol tartrate (Lopressor) 100 MG tablet Take 100 mg by mouth twice daily. Active metFORMIN (Glucophage) 1000 MG tablet Take 1 tablet (1,000 mg total) by mouth every 12 (twelve) hours. Active glimepiride (Amaryl) 2 MG tablet Take 1 tablet (2 mg total) by mouth in the morning and 1 tablet (2 mg total) before bedtime. Active SITagliptin (Januvia) 100 MG tablet Take 1 tablet (100 mg total) by mouth in the morning. Active clopidogrel (Plavix) 75 MG tablet Take 1 tablet (75 mg total) by mouth in the morning. Active aspirin 81 MG EC tablet Take 1 tablet (81 mg total) by mouth in the morning. 4 Active atorvastatin (Lipitor) 80 MG tablet Take 1 tablet (80 mg total) by mouth in the morning. 4 Active valsartan-hydroC HLOROthiazide (Diovan-HCT) 160-12.5 MG tablet TAKE 1 TABLET BY MOUTH EVERY DAY FOR 90 DAYS 3 Active acetaminophen (Tylenol) 500 MG tablet Take 2 tablets (1,000 mg total) by mouth every 8 (eight) hours as needed for pain or fever. Active albuterol HFA 90 mcg/act inhaler Inhale 2 puffs in the morning and 2 puffs before bedtime. Active ascorbic acid (Vitamin C) 500 MG tablet Take 1 tablet (500 mg) by mouth once daily. Active Blood Glucose Monitoring Suppl (ONE TOUCH ULTRA 2) w/Device kit USE TO TEST BLOOD SUGARS ONCE A DAY 4 Active ferrous sulfate 325 (65 Fe) MG tablet Take 1 tablet (325 mg total) by mouth in the morning. Active Ajovy 225 MG/1.5ML auto-injector Inject 1.5 mL (225 mg total) under the skin every 30 (thirty) days. 4 Active Liberator Medical SupplyTouch Ultra Test test strip 1 strip by other route every morning before breakfast. 4 Active HYDROcodone-acet aminophen ([place]) 5-325 MG tablet 4 Active Insulin Lispro 100 UNIT/ML solution Inject under the skin. Take as directed per insulin instructions. Active isosorbide mononitrate ER (Imdur) 30 MG 24 hr tablet Take 1 tablet (30 mg total) by mouth daily. 4 Active Lancets (OneTouch Delica Plus [id number]) misc 4 Active loperamide (Imodium A-D) 2 MG tablet Take 1 tablet (2 mg) by mouth 4 times a day as needed for diarrhea. Active magnesium oxide (Mag-Ox) 400 MG tablet 1 tablet (400 mg) 3 times a day. Active rOPINIRole (Requip) 1 MG tablet Take 1 tablet (1 mg total) by mouth 3 (three) times a day. Active Ubrogepant 100 MG tablet Take 100 mg by mouth daily as needed. Active DULoxetine (Cymbalta) [address] capsule Take 1 capsule (60 mg total) by mouth in the morning. Active amitriptyline (Elavil) 100 MG tabletIndication s:Nonintractable headache, unspecified chronicity pattern, unspecified headache type TAKE 1 TABLET BY MOUTH EVERYDAY AT BEDTIME 90 tablet 2 4 Active Active Problems Problem Noted Date Diagnosed Date Migraine 06/14/2023 Polyneuropathy 10/27/2020 Carpal tunnel syndrome, right upper limb 021 Paresthesia and pain of both upper extremities 0 09/22/2020 Assessment & Plan (12/17/2023 8:08 PM EDT): *06/14/2023 Shana Mclaughlin Patient with paresthesia, cramps, [...] urinary issues. Paresthesia of bilateral legs 09/22/2020 Immunizations Immunization Administration Dates Next Due Influenza, Unspecified 01/14/2019 Influenza, injectable, quadrivalent, preservativ e free 04/02/2018,03/07/2016 Pneumococcal Polysaccharide PPSV23 02/22/2016 Family History Medical History Relation Name Comments Alzheimer's disease Mother Diabetes Mother Heart disease Mother Vascular disease Mother Relation Name Status Comments Mother Social History Tobacco Use Types Packs/Day Years Used Date Smoking Tobacco: Never Assessed Sex and Gender Information Value Date Recorded Sex Assigned at Not on file Legal Sex Male 6:50 PM EDT Gender Identity Not on file Sexual Orientation Not on file Last Filed Vital Signs Vital Sign Reading Time Taken Comments Blood Pressure 112/70 06/14/2023 8:20 AM EST Pulse - - Temperature - - Respiratory Rate - - Oxygen Saturation - - Inhaled Oxygen Concentration - - Weight 98.9 kg (218 lb) 06/14/2023 8:20 AM EST Height 177.8 cm (5' 10 ) 06/14/2023 8:20 AM EST Body Mass Index 31.28 06/14/2023 8:20 AM EST Plan of Treatment Health Maintenance Due Date Last Done Comments CT Colonography 1965 Colonoscopy 1965 Colorectal Cancer Screening 1965 FIT-DNA 1965 FIT 1965 FOBT 1965 Sigmoidoscopy 1965 Influenza Vaccine (#1) 2025 01/14/2019, 2017, 03/07/2016 Insurance [address] [place] [id number] [facility] Care Teams Freight Rate Specialist Relationship Specialty Start Date End Date Jenaro Valadez DO PCP - External PCP 03/05/23 Jenaro Valadez DO PCP - General 03/12/24
--- OUTSIDE RECORDS SUMMARY | 2024-12-15 09:06 | XMS_ITS | CCD ---
Author Organization [facility] CliniSyal Care Team Providers Care Integrated Marketing Manager Name Role Phone Teresa Lynch Unavailable Unavailable Unavailable Teresa Lynch Unavailable Amina Fagan Unavailable AbhinaziaEmilyn Unavailable Cameron Akin Unavailable DO Teresa Lynch Primary Care Provider JERARDO Mclaughlin Attending Provider DO Teresa Lynch Attending Provider SAMSA ., DUARTE Attending Unavailable ELAINE Hernandez, DUARTE Admitting Unavailable DR LYSSA PERDOMO Consulting Unavailable RORY, DR MOORE Primary Care Unavailable DUARTE MÁRQUEZ Consulting Unavailable TERESA LYNCH Primary Care Physician Rory, Dr. Teresa Orona Primary Care UnavailDolores Vaughn Attending Unavailable Dolores Pickard Attending Unavailable Dolores Pickard Referring Unavailable Rory, Dr. Teresa Orona Primary Care Unavaila Dolores Izquierdo Attending Unavailable Dolores Pickard Referring Unavailable Rory, Dr. Teresa Orona Primary Care Unavailmaría Inman II, Dr. Raulito Orona Referring Unavailable Rory, Dr. Teresa Orona Primary Care Unavailmaría Inman II, Dr. Raulito Orona Attending Unavailable DO Teresa Lynch Primary Care Provider MD Abdullahi Wilson Emergency Provider [phone] DO Teresa Lynch Primary Care Provider [phone] MD Abdullahi Wilson Emergency Provider JERARDO Mclaughlin Attending Provider JERARDO Mclaughlin Referring Provider LINDSEY Soto Attending Provider [phone] DO Teresa Lynch Primary Care Provider Teresa Lynch DO Primary Care Provider SIMONALBERT PENNINGTONAMED F Attending Unavailable PAULA SOTO Referring Unavailable SIMONMIKE F Admitting Unavailable SIMON, MIKE Rodriguez Attending Unavailable ONLY), [facility] (INPATIENT Consult ing Unavailable DERISO, ROSIE C Referring Unavailable MAAME RUCKER Referring Unavailable DERISO, ROSIE Snehal Referring Unavailable DO Teresa Lynch Primary Care Provider [phone] BERNARD DE LA CRUZ Referring Unavailable TERESA LYNCH Primary Care Unavailable SimonMike FMary Admitting Unavailable SimonMike pennington Attending Unavailable Mike Montes FMary Referring Unavailable MD Elan Antonio Attending Unavaila ble Mike Montes Consulting Unavailable SimonMike pennington Consulting Unavailable SimonMike pennington Consulting Unavailable MD Mike Montes Admitting Unavailable MD Mike Montes Consulting Unavailable MD Mike Montes Attending Unavailable MD Mike Montes Referring Unavailable SimonMike Consulting Unavailable SimonMike pennington FMary Consulting Unavailable SimonMike pennington FMary Admitting Unavailable SimonMike FMary Consulting Unavailable SimonMike pennington FMary Attending Unavailable SimonMike pennington FMary Referring Unavailable ROWE, Yeyo Blum Attending Unavailable ROWE, Yeyo Blum Attending Unavailable MD Mike Montes Admitting Unavailable MD Mike Montes Attending Unavailable NONE, XXXX Referring Unavailable MD Mike Montes Admitting Unavailable MD Mike Montes Attending Unavailable MD Mike Montes Referring Unavailable ROWE, Yeyo R Attending Unavailable ROWE, Yeyo R Attending Unavailable ROWE, Yeyo R Referring Unavailable ROWE, Yeyo R Attending Unavailable ROWE, Yeyo R Attending Unavailable ROWE, Yeyo R Attending Unavailable ROWE, Yeyo R Attending Unavailable ROWE, Yeyo R Attending Unavailable ROWE, Yeyo R Attending Unavailable Raulito Gilliland Attending Unavailable MD Mike Montes Referring Unavailable Simon, MD Mike Weathers Admitting Unavailable Simon, MD Mike Weathers Attending Unavailable Simon, MD Mike Weathers Referring Unavailable Simon, MD Mike Rodriguez. Admitting Unavailable Simon, MD Mike Weathers Attending Unavailable Yeyo ROWE Attending Unavailable Simon, MD Mike Weathers Admitting Unavailable Simon, MD Mike Weathers Attending Unavailable Simon, MD Mike Weathers Referring Unavailable Simon, MD Mike Rodriguez. Admitting Unavailable Simon, MD Mike Weathers Attending Unavailable Simon, MD [place] F. Referring Unavailable Simon, Mike F. Admitting Unavailable Simon, Mohamed F. Consulting Unavailable Simon, Albertamed F. Referring Unavailable Raulito Gilliland Attending Unavailable Simon, Albertamed F. Consulting Unavailable Simon, Mohamed F. Consulting Unavailable LINDSEY Soto Attending Provider MD Kait Dan Emergency Provider DO Teresa Lynch Primary Care Provider MD João Powell Admit Provider MD João Powell Attending Provider MD Kait Dan Emergency Provider DO Teresa Lynch Primary Care Provider MD João Powell Admit Provider MD João Powell Attending Provider MD Lyssa Sharpe Other Provider MD Mike Burleson Other Provider [phone] SIMON, MOHAMED F Attending Unavailable SIMON, ALBERTAMED F Attending Unavailable LINDSEY Soto Attending Provider [phone] MD Kait Dan Emergency Provider [phone] DO Teresa Lynch Primary Care Provider [phone] MD João Powell Admit Provider MD João Powell Attending Provider MD Lyssa Sharpe Other Provider MD Mike Burleson Other Provider DO Scottie Bonilla Emergency Provider DO Luther Dozier Other Provider MD Job James Other Provider MD Remberto Ervin Attending Provider DO Scottie Bonilla Emergency Provider DO Luther Dozier Other Provider MD Job James Other Provider MD Remberto Ervin Attending Provider Kait Dan MD Emergency Provider Teresa Lynch DO Primary Care Provider João Powell MD Admit Provider João Powell MD Attending Provider Lyssa Sharpe MD Other Provider [phone] Mike Burleson MD Other Provider Scottie BRICENO, [facility] Emergency Provider [phone] Luther Dozier DO Other Provider Jacob HERRERA, Job Other Provider Remberto Ervin MD Attending Provider Mike Burleson MD Attending Provider [phone] Marybel Sanchez Unavailable Unavailable Teresa Lynch DO Primary Care Provider [phone] Namita Mercer LPN. Unavailable Unava ilable Teresa Lynch MD Unavailable Yeyo ROWE Attending Unavailable Yeyo ROWE Admitting Unavailable Yeyo ROWE Attending Unavailable Elan Antonio. Attending Unavailable Unavailable Primary Care Provider Unavailabl e Teresa Lynch DO Primary Care Provider Negro Hu MD Attending Provider Teresa Lynch DO Primary Care Provider Negro Hu MD Attending Provider Francisco Duncan MD Emergency Provider Sina HERRERA, Marge Admit Provider Sina HERRERA, Marge Attending Provider Maximiliano HERRERA, Kevon Baum Attending Provider Gracia HERRERA, Amina Other Provider Yeyo ROWE Attending Unavailable MARYBEL VANG Attending Unavailable Yeyo ROWE Attending Unavailable MARYBEL VANG Attending Unavailable Jez Dominguez PA-C Emergency Provider Abdullahi Canchola DO Admit Provider [phone] Abdullahi Canchola DO Attending Provider Elle Monique RN Other Provider Unavailable Danyell Schmidt DO Other Provider Yaniv HERRERA, Pascale Other Provider [phone] Raulito Inman MD Other Provider Lori HERRERA, Bernard Other Provider Connie HERRERA, Cash Other Provider Dolores Pickard APRN Other Provider Elton HERRERA, Jeanie Other Provider Simon HERRERA, Andrew Elise Other Provider Shaheed Barboza MD Other Provider Gabby [facility], Maryann Hopkins Other Provider Teresa Lynch DO Primary Care Provider [phone] Teresa Lynch DO Attending Provider Maurice Francis MD Other Provider Teresa Lynch Primary Care Unavailable Mike Burleson Attending Unavailable Mike Burleson Admitting Unavailable Teresa Lynch Primary Care Unavailable Abdullahi Canchola Attending Unavailable Abdullahi Canchola Admitting Unavailable Mischler, Elle Consulting Unavailable Eneida, Elle Consulting Unavailable Danyell Schmidt Consulting Unavailable Arnold, Ashraf Consulting Unavailable Raulito Inman Consulting Unavail able Bernard De La Cruz Consulting Unavailable Cash Rosales Consulting Unavailab Dolores Cleaning Consulting Unavailable CondeJeanie pennington Consulting Unavailable Simon, Andrew Angiejeeb Consulting Unavailab Shaheed Quinonez Consulting Unavailable Maryann Pierre Consulting Unavailable Kuns, Teresa Primary Care Unavailable Marge Andino Admitting Unavailable Amina Fagan Consulting Unavailable Kevon Viera Attending Unavailable Jetts, Teresa Primary Care Unavailable Andre, Mohamad Admitting Unavailable Andre Mohamad Attending Unavailable Lyssa Sharpe Consulting Unavailable Mike Burleson Consulting Unavailable Andre, Mohamad Admitting Unavailable Luther Dozier Consulting Unavailable Kuns, Teresa Primary Care Unavailable Remberto Ervin Attending Unavailable Job James Consulting Unavailable Mike Burleson Consulting Unavailable Paula Soto Attending Unavailable Paula Soto Admitting Unavailable Kuns, Teresa Primary Care Unavailable Negro Hu Attending Unavailable Negro Hu Admitting Unavailable Kuns, Teresa Attending Unavailable Kuns, Teresa Admitting Unavailable Kuns, Teresa Primary Care Unavailable AmeliesNorrisiz Consulting Unavailable Maurice Francis Consulting Unavailable Rory BRICENO Teresa Primary Care Provider [phone] Francisco Duncan MD Emergency Provider Marge Andino MD Admit Provider [phone] Kevon Viera MD Attending Provider Amina Fagan MD Other Provider Jez Dominguez PA-C Emergency Provider Abdullahi Canchola DO Admit Provider [phone] Abdullahi Canchola DO Attending Provider Teresa Lynch DO Attending Provider Maurice Francis MD Other Provider BERNARD DE LA CRUZ Attending Unavailable TERESA LYNCH Primary Care Unavailable Allergies Allergy Classification Reported Allergen(s) Allergy Type Date of Onset Reaction(s) Facility (20 sources) natural latex rubber; Translations: [LATEX] Allergy to substance (finding) 03-27-20 23 Itching (finding), Eruption of skin (disorder) [facility] (20 sources) Penicillins; Translations: [Penicillins] Allergy to drug (finding) 11-05-19 14 Anaphylactoid reaction (disorder) [facility] (20 sources) Acetaminophen / oxyCODONE Drug Allergy 03-14-[address] [facility] Other (20 sources) tamsulosin; Translations: [TAMSULOSIN] Drug Allergy 07-14-19 21 [facility] (20 sources) PENICIILIN Propensity to adverse reactions SWELLING OF AIRWAY [facility] Other (20 sources) Acetaminophen; Translations: [ACETAMINOPHEN] Drug Allergy 07-14-19 21 [facility] (20 sources) oxyCODONE; Translations: [Oxycodone] Drug Allergy 02-08-20 17 [facility] (1 source) Penicillins Drug allergy (disorder) 09-23-19 14 [facility] (20 sources) Penicillin G; Translations: [penicillin G benzathine] Drug Allergy [facility] (11 sources) Penicillin; Translations: [Penicillin] Drug Allergy anaphylaxis, Anaphylactoid reaction (disorder) [facility] (20 sources) Latex Allergy to substance 03-27-20 23 Unknown, Dermatitis, Itching, Rash [facility] (20 sources) Penicillins Drug Allergy 11-05-19 14 Anaphylaxis, [facility] (18 sources) Isosorbide; Translations: [ISOSORBIDE MONONITRATE] Drug Allergy 08-05-19 15 Other (See Comments) [facility] (1 source) Acetaminophen / oxyCODONE Drug Allergy 03-14-20 17 [facility] (5 sources) Isosorbide Dinitrate Drug Allergy 08-05-19 15 Other, Other (See Comments) [facility] (1 source) Latex Propensity to adverse reactions 03-27-20 23 Dermatitis, Itching, Rash, Unknown [facility] (1 source) Penicillins Drug Intolerance 11-05-19 14 Anaphylaxis, Hives [facility] (5 sources) Propoxyphene Drug Allergy 03-14-20 17 [facility] (1 source) Latex Drug allergy (disorder) 11-06-19 [facility] (1 source) Penicillins Drug allergy (disorder) 11-06-19 [facility] (1 source) tamsulosin Drug Allergy 07-31-19 [facility] Medications Current Medications Medication Drug Class(es) Dates Sig (Normalized) Sig (Original) acetaminophen 325 mg / HYDROcodone bitartrate 5 mg oral tablet (20 sources) Opioid Agonist Start: 11-05-2024 Start: 06-11-2024 End: 08-12-2024 Start: 06-11-2024 End: 08-12-2024 take 1 tablet by mouth every four to six hours as needed for pain Hydrocodone-Acetaminophen 5-325 mg tablet Discontinued 1 TAB PO EVERY 4-6 HOURS as needed for pain 6 2 July 16, 2024 August 12, 2024 12:27pm Start: 07-26-2023 End: 03-03-2024 Start: 07-26-2023 End: 03-03-2024 take 1 tablet by mouth four times daily as needed Hydrocodone-Acetaminophen 5-325 mg tablet Discontinued TAB PO July 26, 2023 1:00am March 03, 2024 2:28pm [employer] tablet Orally QID PRN; Note: Source Status: Refill; Refills: 0; Provider: Rory Guerra Start: 04-11-2023 take 1 tablet by [...] every six hours Start: 07-24-2019 End: 07-14-2020 Start: 07-24-2019 End: 07-14-2020 take 1 tablet by mouth every six hours as needed for pain Hydrocodone-Acetaminophen 5-325 mg tablet Discontinued 1 TAB PO Q6H as needed for Pain July 24, 2019 1:00am July 14, 2020 12:39pm Start: 10-10-2014 [place] 325 mg-5 mg oral tablet 1 tab(s), Oral, q4hr for pain, 12 tab(s), Refill(s) 0 Start Date: 10/10/14 Status: Ordered [id number] 200 actuat albuterol 0.09 mg/actuat metered dose [...] Start Date: 11/23/22 Status: Ordered Start: 06-28-2019 Start: 06-28-2019 take 1 puff(s) by in halation every six hours as needed Albuterol Sulfate (Proair Hfa) 90 mcg/actuation Hfa Aerosol Inhaler Active 2 PUFF INHALATION Every 6 hours as needed for Shortness Of Breath June 28, 2019 1:00am Start: 06-28-2019 take 1 puff(s) by in [...] 0 Refills: 0 Ordered: 26-Oct-2021 DO Active allopurinol 100 mg oral tabl et (1 source) Xanthine Oxidase Inhibitor Start: 11-05-2024 amitriptyline hydrochloride 25 mg oral tablet (20 sources) Tricyclic Antidepressant Start: 05-07-2024 End: 08-30-2024 Start: 07-12-2023 End: 03-13-2024 Start: 07-12-2023 End: 03-06-2024 take 4 tablets by mouth once daily Amitriptyline 25 mg tablet Discontinued 100 MG PO Daily July 12, 2023 1:00am March 06, 2024 12:39pm Start: 07-12-2023 End: 03-06-2024 take 100 mg by mouth once daily Amitriptyline Disconti nued 100 MG PO Daily July 12, 2023 1:00am March 06, 2024 12:39pm Start: 11-23-2022 take 1 tablet by kalie once daily at bedtime amitriptyline 100 mg oral tablet 100 mg = 1 tab(s), Oral, Once a day (at bedtime) Start Date: 11/23/22 Status: Ordered take 0.5-1 tablets b y mouth once daily at bedtime Amitriptyline HCl 25 MG 1/2-1 tab Orally QHS Active ascorbic acid 500 mg chewable tablet (3 sources) Vitamin C take 1 tablet by kalei th once daily ascorbic acid (Vitamin C) 500 MG tablet Take 1 tablet (500 mg) by mouth once daily. Active take 1 tablet by mouth once suzanne y ascorbic acid (Vitamin C) 500 mg tablet Take 1 tablet (500 mg) by mouth once daily. Active aspirin 81 mg delayed release oral tablet (20 sources) Platelet Aggregation Inhibitor, Nonsteroidal Anti-inflammatory Drug Start: 06-16-2023 Start: 06-22-2021 take 1 tablet by kalie th once daily Aspirin Low Dose 81 MG Oral Tablet Delayed Release TAKE 1 TABLET DAILY. Quantity: 90 Refills: 3 Ordered: 26-Oct-2021 Raulito Inman MD Start : 22-Jun-2021 Active fill at patients request Start: 04-01-2018 End: 04-05-2024 Aspirin 81 mg Tab-EC (14 sources) Start: 07-10-2014 Aspirin 81 mg Tab-EC Refills(s) 0 Start Date: 07/10/14 Status: Ordered atorvastatin 80 mg oral tablet (20 sources) HMG-CoA Reductase Inhibitor Start: 04-04-2024 End: 11-05-2024 Start: 03-13-2024 End: 04-04-2024 Start: 07-10-2014 End: 03-13-2024 Blood Glucose Meter kit (20 sources) Start: [...] (20 sources) Corticosteroid, beta2-Adrenergic Agonist Start: 04-05-2024 Start: 04-05-2024 take 1 puff(s) by in halation twice daily Budesonide-Formoterol 160-4.5 mcg/actuation HFA aerosol inhaler Active 2 PUFF INHALATION Twice daily April 05, 2024 12:00am Start: 03-13-2024 End: 04-05-2024 Start: 03-13-2024 End: 04-05-2024 take 1 puff(s) by inhalation twice daily Budesonide-Formoterol (Symbicort) 80-4.5 mcg/actuation Hfa Aerosol Inhaler Discontinued 2 PUFF INHALATION Twice daily 0 March 13, 2024 12:00am April 05, 2024 1:45pm Start: 07-12-2023 End: 03-03-2024 Start: 07-12-2023 End: 03-03-2024 Budesonide-Formoterol (Symbi leonid) 160-4.5 mcg/actuation HFA aerosol inhaler Discontinued 1 INH INHALATION Twice daily July 12, 2023 1:00am March 03, 2024 2:28pm clarithromycin 500 mg oral tablet (6 sources) Macrolide Antimicrobial Start: 08-02-2021 take 1 tablet by mouth every twelve hours Clarithromycin 500 MG 1 tablet Orally every 12 hrs for 10 day(s) Jul, Active clopidogrel 75 mg oral tablet (20 sources) [id number] Platelet Inhibitor Start: 03-08-2024 End: 09-12-2024 Start: 07-10-2014 End: 03-06-2024 Ensure (3 sources) Start: 02-21-2024 Ensure 237 [...] Date: 10/31/13 Status: Ordered Flash Glucose Scanning Ensign (Freestyle Jigar 2 Ensign) misc (12 sources) Start: 12-28-2023 Flash Glucose Scanning Ensign (Freestyle Jigar 2 Ensign) misc Active 0 .Route December 27, 2023 11:00pm As directed Start: 12-28-2023 Flash Glucose Scanning Ensign (Freestyle Jigar 2 Ensign) misc Active 0 .Route December 28, 2023 12:00am As directed Start: 12-28-2023 Flash Glucose Scanning Ensign (Freestyle Jigar 2 Ensign) misc Active 0 .ROUTE December 28, 2023 12:00am As directed Flash Glucose Sensor (Freest yle Jigar 2 Sensor) kit (12 sources) Start: 12-28-2023 Flash Glucose Sensor (Freestyle Jigar 2 Sensor) kit Active 0 .Route December 27, 2023 11:00pm As directed Start: 12-28-2023 Flash Glucose Sensor (Freestyle Jigar 2 Sensor) kit Active 0 .Route December 28, 2023 12:00am As directed Start: 12-28-2023 Flash Glucose Sensor (Freestyle Jigar 2 Sensor) kit Active 0 .ROUTE December 28, 2023 12:00am As directed furosemide 40 mg oral tablet (20 sources) Loop Diuretic Start: 08-11-2024 Start: 07-26-2023 End: 07-25-2024 take 1 tablet by mouth once daily furosemide 40 mg Tab 40 mg = 1 tab(s), Oral, Daily, Refills(s) 0 Start Date: 02/12/24 Status: Ordered Start: 07-12-2023 End: 03-08-2024 Start: 07-12-2023 End: 03-03-2024 take 1 tablet by mouth once daily in the morning Furosemide (Lasix) 20 mg tablet Discontinued 20 MG PO Every morning July 12, 2023 1:00am March 03, 2024 2:29pm Start: 03-13-2019 End: 07-14-2020 Start: 03-13-2019 End: 07-14-2020 take 1 tablet by mouth once daily Furosemide 20 mg Tablet Discontinued 20 MG PO Daily March 13, 2019 12:00am July 14, 2020 12:39pm gabapentin 300 mg oral capsule (1 source) Anti-epileptic Agent Start: 11-14-2023 End: 11-21-2023 take 1 capsule by mouth three times daily gabapentin (NEURONTIN) 300 mg capsule Indications: Post-op pain Take 1 capsule (300 mg total) by mouth 3 (three) times a day for 7 days. 21 capsule 11/14/2023 11/21/2023 Active glimepiride 2 mg oral tablet (20 sources) Sulfonylurea Start: 04-05-2024 End: 11-05-2024 Start: 10-31-2013 End: 03-06-2024 hydroCHLOROthiazide 12.5 mg / valsartan 80 mg oral tablet (20 sources) Thiazide Diuretic, Angiotensin 2 Receptor Lamont Start: 11-05-2024 Start: 08-11-2024 End: 10-11-2024 Start: 08-11-2024 End: 10-11-2024 take 1 tablet by mouth once daily Valsartan-Hydrochlorothiazide (Diovan Hct) 160-12.5 mg tablet Discontinued 1 TAB PO Daily August 11, 2024 1:00am October 11, 2024 1:31pm Start: 04-05-2024 End: 04-05-2024 Start: 03-13-2024 End: 08-11-2024 Start: 03-13-2024 End: 08-11-2024 take 1 tablet by mouth once daily Valsartan-Hydrochlorothiazide 80-12.5 mg tablet Discontinued 1 TAB PO Daily April 05, 2024 3:28pm August 11, 2024 4:35am Start: 07-12-2023 End: 03-13-2024 Start: 11-23-2022 End: 04-05-2024 take 1 tablet by mouth once daily Valsartan-Hydrochlorothiazide 160-12.5 mg tablet Discontinued 1 TAB PO Daily April 05, 2024 12:00am April 05, 2024 3:27pm take 1 tablet by kalie th once daily Valsartan-hydroCHLOROthiazide 160-12.5 MG 1 tablet Orally Once a day Active take 1 tablet by kalie th every eight hours take 1 tablet by kalie th three times daily Valsartan-hydroCHLOROthiazide 160-12.5 MG 1 tablet Orally TID Active hydrOXYzine hydrochloride 25 mg oral tablet (20 sources) Antihistamine Start: 05-06-2024 End: 11-05-2024 Start: 04-19-2024 End: 04-23-2024 Insulin Lispro (8 sources) Insulin Analog Start: 02-21-2024 insulin lispro [...] Syringe,Safety Needle (1 source) Start: 03-29-2024 Insulin Syring e,Safety Needle Active 0 .Route 100 March 29, 2024 12:00am As directed 24 hr isosorbide mononitrate 30 mg extended release oral tablet (20 sources) Nitrate Vasodilator Start: 08-11-2024 Start: 03-08-2024 End: 05-07-2024 Start: 01-11-2023 End: 03-06-2024 Start: 07-11-2014 take 1 tablet by kalie [...] mg oral tablet (20 sources) Biguanide Start: 04-05-2024 End: 09-12-2024 Start: 06-06-2012 End: 03-13-2024 take 1 tablet by kalie th every twelve hours metFORMIN (GLUCOPHAGE) 1000 mg tablet Take 1 tablet (1,000 mg total) by mouth every 12 (twelve) hours. Active take 1 tablet by kalie th every twelve hours metFORMIN (Glucophage) 1,000 mg tablet Take 1 tablet (1,000 mg) by mouth every 12 hours. Active metoprolol tartrate 25 mg or al tablet (20 sources) beta-Adrenergic Lamont Start: 03-13-2024 End: 11-05-2024 Start: 03-13-2024 End: 08-11-2024 Start: 03-13-2024 End: 08-11-2024 take 1 tablet by mouth twice daily Metoprolol Tartrate 25 mg Tablet Discontinued 25 MG PO Twice daily 0 March 13, 2024 12:00am August 11, 2024 4:40am Hold for SBP Start: 03-06-2024 End: 03-13-2024 Start: 03-06-2024 End: 03-08-2024 Metoprolol Tartrate 100 mg t ablet Discontinued 12.5 MG PO Twice daily 180 March 06, 2024 12:38pm March 08, 2024 2:53pm Start: 02-21-2024 End: 02-21-2024 metoprolol tartrate 100 mg T ab 50 mg = 0.5 tab(s), Tab, Oral, Start date 02/21/24 9:00:00 AM EDT, 02/12/24 20:07:00 EDT Start Date: 02/21/24 Stop Date: 02/21/24 Status: Completed Start: 01-01-2024 End: 12-31-2024 take 1 tablet by mouth once daily metoprolol succinate XL (Toprol-XL) 25 mg 24 hr tablet Indications: Coronary artery disease involving [place] coronary artery of [place] heart without angina pectoris Take 1 tablet (25 mg) by mouth once daily. Do not crush or chew. 90 tablet 3 01/01/2024 12/31/2024 Active Start: 04-01-2018 End: 03-13-2024 Start: 04-01-2018 End: 03-06-2024 Start: 04-01-2018 End: 03-13-2024 take 12.5 mg [...] 10/24/2023 Discontinued (Therapy completed) 24 hr nicotine 0.875 mg/hr transdermal system (7 sources) Cholinergic Nicotinic Agonist Start: 10-11-2024 Start: 02-21-2024 nicotine 14 mg /24 hr Transderm ER Film TransDermal, Daily, Refill(s) 0 Start Date: 02/21/24 Status: Ordered nitroglycerin 0.4 mg subling ual tablet (20 sources) Nitrate Vasodilator Start: 07-12-2023 Start: 07-10-2014 End: 03-13-2019 nitroglycerin (N itrostat) 0.[address] 1 tablet (0.4 mg total) under the tongue every 5 (five) minutes as needed for chest pain. Active omeprazole 40 mg delayed rel ease oral capsule (20 sources) Proton Pump Inhibitor Start: 10-10-2024 Start: 11-23-2022 Prilosec Oral, Daily Start Date: 11/23/22 Status: Ordered Start: 07-24-2019 End: 07-26-2023 Start: 07-24-2019 End: 07-26-2023 take 40 mg by mouth once daily Omeprazole Discontinued 40 MG PO Daily July 24, 2019 1:00am July 26, 2023 5:38pm Start: 07-24-2019 take 20 mg by mouth once daily Omeprazole Active 20 MG PO Daily July 24, 2019 1:00am Start: 01-02-2018 End: 06-25-2024 take 2 tablets by [facility] twice daily before mealtime omeprazole OTC [...] route in the morning. 08/17/2023 Active pregabalin 75 mg oral capsule (20 sources) Start: 10-10-2024 take 3 capsules by mouth three times daily Pregabalin (Lyrica) 75 mg capsule Active 225 MG PO Three times daily October 10, 2024 12:00am Start: 08-30-2024 End: 08-30-2024 take 1 capsule by mouth three times daily Pregabalin (Lyrica) 200 mg capsule Discontinued 200 MG PO Three times daily August 30, 2024 12:00am August 30, 2024 9:49am Start: 08-12-2024 End: 10-10-2024 take 1 capsule by mouth three times daily Pregabalin (Lyrica) 75 mg capsule Discontinued 75 MG PO Three times daily 3 August 30, 2024 12:00am October 10, 2024 6:58pm Start: 04-05-2024 End: 08-12-2024 take 1 capsule by mouth three times daily Pregabalin 200 mg capsule Discontinued 200 MG PO Three times daily 270 June 27, 2024 9:39am August 12, 2024 12:27pm Start: 03-13-2024 End: 04-05-2024 take 1 capsule by mouth twice daily Pregabalin 50 mg Capsule Discontinued 50 MG PO Twice daily 0 March 13, 2024 12:00am April 05, 2024 1:35pm Start: 01-24-2011 End: 03-13-2024 ProAir HFA 108 (90 Base) MCG/ACT (20 [...] 30 days. 60 tablet 11/08/2023 12/08/2023 Active sennosides, mcc 8.6 mg oral tablet (3 sources) Start: 02-21-2024 take 1 tablet by mouth twice daily senna 8.6 mg Tab 8.6 mg = 1 tab(s), Oral, BID, Refills(s) 0 Start Date: 02/21/24 Status: Ordered sildenafil 100 mg oral tablet (20 sources) Phosphodiesterase 5 Inhibitor Start: 04-05-2024 End: 04-05-2024 Start: 03-08-2024 End: 03-13-2024 Start: 03-13-2019 End: 03-03-2024 Start: 05-07-2018 End: 03-03-2024 take 1 tablet by mouth once daily Sildenafil (Viagra) 100 mg Tablet Discontinued 100 MG PO Daily March 13, 2019 12:00am March 03, 2024 2:29pm SITagliptin 100 mg oral tabl et (20 sources) Dipeptidyl Peptidase 4 Inhibitor Start: 04-04-2024 End: 06-25-2024 Start: 07-09-2020 End: 03-03-2024 tamsulosin hydrochloride 0.4 mg oral capsule (20 sources) alpha-Adrenergic Lamont Start: 03-08-2024 Start: 02-21-2024 End: 02-21-2024 tamsulosin 0.4 mg Cap 0.4 mg = 1 cap(s), Cap, Oral, Start date 02/21/24 9:00:00 AM EDT, 02/12/24 18:02:00 EDT Start Date: 02/21/24 Stop Date: 02/21/24 Status: Completed Start: 06-26-2023 take 1 capsule by [facility] once daily tamsulosin (FLOMAX) 0.4 mg capsule Take 1 capsule (0.4 mg total) by mouth nightly. 06/26/2023 Active Start: 02-14-2023 End: 03-06-2024 take [address] [facility] once daily Tamsulosin HCl - [...] Refills: 0 Ordered: 26-Oct-2021 DO Active Tiotropium [place] (Spiriva With Handihaler) 18 mcg capsule, w/inhalation device (20 sources) Start: 03-03-2024 take 1 capsule by inhalation once daily Tiotropium [place] (Spiriva With Handihaler) 18 mcg capsule, w/inhalation device Active 1 CAP INHALATION Daily March 02, 2024 11:00pm puncture 1 cap using device; one dose = 2 inhalations Start: 03-03-2024 take 1 capsule by in halation once daily Tiotropium [place] (Spiriva With Handihaler) 18 mcg capsule, w/inhalation device Active 1 CAP INHALATION Daily March 03, 2024 12:00am puncture 1 cap using device; one dose = 2 inhalations Start: 07-12-2023 End: 03-03-2024 take 1 capsule by inhalation once daily Tiotropium [place] (Spiriva With Handihaler) 18 mcg capsule, w/inhalation device Discontinued 1 CAP INHALATION Daily July 12, 2023 12:00am March 03, 2024 1:29pm puncture 1 cap using device; one dose = 2 inhalations Start: 07-12-2023 End: 03-03-2024 take 1 capsule by inhalation once daily Tiotropium [place] (Spiriva With Handihaler) 18 mcg capsule, w/inhalation device Discontinued 1 CAP INHALATION Daily July 12, 2023 1:00am March 03, 2024 2:29pm puncture 1 cap using device; one dose = 2 inhalations Start: 07-12-2023 take 1 capsule by in halation once daily Tiotropium [place] (Spiriva With Handihaler) 18 mcg capsule, w/inhalation device Active 1 CAP INHALATION Daily July 12, 2023 1:00am puncture 1 cap using device; one dose = 2 inhalations Start: 07-12-2023 take 1 capsule by in halation once daily Tiotropium [place] (Spiriva With Handihaler) 18 mcg capsule, w/inhalation device Active 1 CAP INHALATION Daily July 12, 2023 12:00am puncture 1 cap using device; one dose = 2 inhalations tiZANidine 4 mg oral tablet (20 sources) Central alpha-2 Adrenergic Agonist Start: 08-11-2024 Start: 03-08-2024 End: 03-13-2024 Start: 07-12-2023 End: 03-03-2024 Start: 11-23-2022 take 1 capsule by mo uth three times daily as needed tiZANidine (ZANAFLEX) [...] daily. Active take 2 tablets by mo ut at bedtime tiZANidine HCl - 4 MG Oral Tablet TAKE 2 TABLETS AT BEDTIME. Quantity: 0 Refills: 0 Ordered: 11-Jan-2023 DO Active traMADol hydrochloride 50 mg oral tablet (20 sources) Opioid Agonist Start: 08-02-2024 End: 08-07-2024 take 1 tablet by mouth every six hours as needed for pain Ultram 50 mg Tab 50 mg = 1 tab(s), Oral, q6hr, PRN Pain, X 5 day(s), # 12 tab(s), Refills(s) 0, Pharmacy: [facility]/pharmacy #[id number], 182, cm, 08/02/24 9:08:00 EST, Height/Length Dosing, 88.5, kg, 08/02/24 9:08:00 EST, Weight Dosing Start Date: 08/02/24 Stop Date: 08/07/24 Status: Ordered Start: 07-26-2023 End: 03-03-2024 Start: 07-26-2023 End: 03-03-2024 take 1 tablet [...] days Feb, Active Start: 03-13-2019 End: 07-24-2019 Start: 03-13-2019 End: 07-24-2019 take 1 tablet by mouth four times daily Tramadol 50 mg Tablet Discontinued 50 MG PO Four times daily March 13, 2019 12:00am July 24, 2019 2:52pm ubrogepant 100 mg oral tablet (19 sources) take 1 tablet by mouth once daily as needed ubrogepant 100 mg tablet Take 100 mg by mouth daily as needed. Active (20 sources) Start: 11-05-2024 Start: 10-10-2024 Start: 08-30-2024 End: 08-30-2024 Start: 08-30-2024 End: 08-30-2024 Start: 08-30-2024 End: 10-10-2024 Start: 08-12-2024 End: 08-30-2024 Start: 08-12-2024 End: 08-30-2024 Start: 06-27-2024 End: 08-12-2024 Start: 06-25-2024 End: 06-27-2024 Start: 04-15-2024 Start: 04-08-2024 End: 05-07-2024 Start: 04-05-2024 End: 04-08-2024 Start: 04-05-2024 End: 06-25-2024 Start: 04-04-2024 End: 06-27-2024 Start: 03-29-2024 Start: 03-13-2024 End: 04-05-2024 Start: 03-13-2024 End: 04-05-2024 Start: 03-13-2024 Start: 03-08-2024 End: 03-13-2024 Start: 03-08-2024 Start: 03-06-2024 End: 04-23-2024 Start: 03-06-2024 Start: 03-03-2024 Start: 03-03-2024 End: [...] 03-13-2024 End: 04-04-2024 take 2 tablets by mo uth every [...] tablet (20 sources) Start: 07-14-2020 End: 07-12-2023 Start: 03-13-2019 End: 02-14-2020 ALPRAZolam 0.5 mg oral table t (20 sources) Benzodiazepine Start: 08-08-2019 End: 07-14-2020 Start: 03-13-2019 End: 07-24-2019 Start: 03-13-2019 End: 07-24-2019 take 2 tablets [...] Calcium Channel Lamont Start: 04-01-2018 End: 07-24-2019 Start: 04-01-2018 End: 07-24-2019 take 5 mg by mouth once daily Amlodipine Discontinued 5 MG PO Daily April 01, 2018 12:00am July 24, 2019 2:52pm Start: 10-31-2013 take 1 tablet by kalie th once daily Norvasc 5 mg Tab 5 mg = 1 tab(s), Oral, Daily, Refills(s) 0 Start Date: 10/31/13 Status: Ordered baclofen 10 mg oral tablet (17 sources) gamma-Aminobutyric Acid-ergic Agonist Start: 03-03-2024 End: 03-08-2024 Blood-Glucose Meter,Continuous (Freestyle Jigar 3 Ensign) misc (10 sources) Start: 12-25-2023 End: 12-28-2023 Blood-Glucose Meter,Continuous (Freestyle Jigar 3 Ensign) misc Discontinued 0 .Route December 24, 2023 11:00pm December 28, 2023 10:03am As directed Start: 12-25-2023 End: 12-28-2023 Blood-Glucose Meter,Continuo us (Freestyle Jigar 3 Ensign) misc Discontinued 0 .Route December 25, 2023 12:00am December 28, 2023 11:03am As directed Blood-Glucose Sensor (Freest yle Jigar 3 Sensor) device (12 sources) Start: 12-25-2023 End: 12-28-2023 Blood-Glucose Sensor (Freest yle Jigar 3 Sensor) device Discontinued 0 .Route December 24, 2023 11:00pm December 28, 2023 10:03am As directed Start: 12-25-2023 End: 12-28-2023 Blood-Glucose Sensor (Freest yle Jigar 3 Sensor) device Discontinued 0 .Route December 25, 2023 12:00am December 28, 2023 11:03am As directed Blood-Glucose,Ict Managers,Cont (Freestyle Jigar 3 Ensign) misc (2 sources) Start: 12-25-2023 End: 12-28-2023 Blood-Glucose,Ict Managers,Cont (Freestyle Jigar 3 Ensign) misc Discontinued 0 .Route 1 December 25, 2023 12:00am December 28, 2023 11:03am As directed busPIRone hydrochloride 10 m g oral tablet (20 sources) Start: 03-13-2019 End: 07-24-2019 calcium carbonate 1250 mg / cholecalciferol 0.01 mg oral tablet (11 sources) Vitamin D Start: 08-30-2024 End: 10-10-2024 Start: 08-30-2024 End: 10-10-2024 take 1 tablet by mouth once daily Calcium Carbonate-Vitamin D3 (Oyster Shell Calcium-Vit D3) 500 mg-10 mcg (400 unit) tablet Discontinued 1 TAB PO Daily September 05, 2024 3:30pm October 10, 2024 7:18pm Calcium Carbonate-Vitamin D3 (Oyster Shell Calcium-Vit D3) 500 mg-5 mcg (200 unit) Tablet (5 sources) Start: 08-12-2024 End: 08-30-2024 take 2 tablets by mouth once at mealtime Calcium Carbonate-Vitamin D3 (Oyster Shell Calcium-Vit D3) 500 mg-5 mcg (200 unit) Tablet Discontinued 2 TAB PO 3x/Day with meals August 12, 2024 12:00am August 30, 2024 9:16am Start: 08-12-2024 take 2 tablets by mo uth once at mealtime Calcium Carbonate-Vitamin D3 (Oyster Shell Calcium-Vit D3) 500 mg-5 mcg (200 unit) Tablet Active 2 TAB PO 3x/Day with meals August 12, 2024 12:00am cephalexin 500 mg oral capsu le (11 sources) Cephalosporin Antibacterial Start: 04-19-2024 End: 05-07-2024 clonazePAM 0.5 mg oral table t (20 sources) Benzodiazepine Start: 04-26-2024 End: 11-05-2024 diazePAM 5 mg oral tablet (20 sources) Benzodiazepine Start: 07-26-2023 End: 03-03-2024 Start: 05-21-2020 End: 07-12-2023 dicyclomine hydrochloride 20 mg oral tablet (20 sources) Anticholinergic Start: 05-22-2020 End: 07-12-2023 doxycycline hyclate 100 mg o ral capsule (20 sources) Tetracycline-class Drug Start: 08-02-2024 End: 08-23-2024 Start: 01-30-2023 take 1 capsule by [facility] once daily doxycycline hyclate 100 mg Cap 100 mg = 1 cap(s), Oral, Daily, Take 1 pill the day before the procedure and 1 pill after the procedure, # 2 cap(s), Refills(s) 0, Pharmacy: [facility]/pharmacy #[id number], 182, cm, 01/30/23 10:24:00 EDT, Height/Length Dosing, 94, kg, 01/30/23 10:24:00 EDT, Weight Dosing Start Date: 01/30/23 Status: Ordered 0.5 ml dulaglutide 1.5 mg/ml auto-injector (20 sources) GLP-1 Receptor Agonist Start: 04-04-2024 End: 06-25-2024 Start: 04-04-2024 End: 04-05-2024 Dulaglutide (Trulicity) 0.75 mg/0.5 mL pen injector Discontinued MG SUBCUT April 04, 2024 12:00am April 05, 2024 2:02pm Start: 07-12-2023 inject 0.5 mL by sub cutaneous injection every week dulaglutide 0.75 mg/0.5 mL pen injector Inject 0.5 mL (0.75 mg total) under the skin once a week. 07/12/2023 Active Start: 07-27-2021 End: 11-10-2023 inject 0.75 mg by subcutaneous injection every week dulaglutide (TRULICITY) 1.5 mg/0.5 mL pen injector Inject 0.75 mg under the skin once a week. 01/30/2023 Active Start: 07-27-2021 End: 03-13-2024 DULoxetine 30 mg delayed release oral capsule (20 sources) Serotonin and Norepinephrine Reuptake Inhibitor Start: 03-13-2024 End: 04-04-2024 take 1 capsule by mouth in the m orning DULoxetine (CYMBALTA) 60 mg capsule Take 1 capsule (60 mg total) by mouth in the morning. Active empagliflozin 10 mg oral tab let (20 sources) Sodium-Glucose Cotransporter 2 Inhibitor Start: 11-23-2022 End: 06-25-2024 Start: 09-28-2020 take 1 tablet by [facility] every twenty-four hours Jardiance 25 MG 1 tablet Orally Once a day for 30 day(s) Sep, Active ferrous sulfate 325 mg oral tablet (20 sources) Start: 03-06-2024 End: 04-23-2024 take 1 tablet by mouth every other day Ferrous Sulfate 325 mg (65 mg iron) tablet Discontinued 325 MG PO Q2D 15 March 06, 2024 12:00am April 23, 2024 1:48pm Start: 07-26-2023 End: 03-03-2024 Start: 07-26-2023 End: 03-03-2024 Ferrous Sulfate (Slow Fe) 13 7 mg (45 mg iron) tablet extended release Discontinued MG PO July 26, 2023 1:00am March 03, 2024 2:28pm Start: 04-06-2023 take 1 tablet by kalie three times weekly Slow Fe 142 (45 Fe) MG 1 tablet Orally Three times a Week for 30 day(s) Apr, Active take 1 tablet by [facility] in the morning ferrous sulfate 325 (65 FE) mg tablet Take 1 tablet (325 mg total) by mouth in the morning. Active take 1 tablet by [facility] once daily ferrous sulfate, 325 mg ferrous sulfate, tablet Take 1 tablet by mouth once daily. Active 1.5 ml fremanezumab-vfrm 150 mg/ml prefilled syringe (20 sources) Start: 05-07-2024 End: 08-30-2024 Start: 07-18-2023 inject 1.5 mL by sub cutaneous injection every 30 days AJOVY AUTOINJECTOR 225 mg/1.5 mL Inject 1.5 mL (225 mg total) under the skin every 30 (thirty) days. 07/18/2023 Active Start: 07-12-2023 End: 03-03-2024 Start: 07-12-2023 End: 03-03-2024 Fremanezumab-Vfrm (Ajovy Autoinjector) 225 mg/1.5 mL auto-injector Discontinued 225 MG SUBCUT Q30D July 12, 2023 1:00am March 03, 2024 2:28pm hydroCHLOROthiazide 25 mg / losartan potassium 100 mg oral tablet (20 sources) Thiazide Diuretic, Angiotensin 2 Receptor Lamont Start: 04-01-2018 End: 03-13-2019 Start: 04-01-2018 End: 03-13-2019 take 1 tablet by mouth once daily Losartan-Hydrochlorothiazide 100-25 mg Tablet Discontinued 1 TAB PO Daily April 01, 2018 12:00am March 13, 2019 8:00am hydroCHLOROthiazide 12.5 mg / olmesartan medoxomil 40 mg oral tablet (20 sources) Thiazide Diuretic, Angiotensin 2 Receptor Lamont Start: 07-24-2019 End: 07-14-2020 Start: 07-24-2019 End: 07-14-2020 take 1 tablet by mouth once daily Olmesartan-Hydrochlorothiazide (Benicar Hct) 40-12.5 mg Tablet Discontinued 1 TAB PO Daily July 24, 2019 1:00am July 14, 2020 12:39pm ibuprofen 200 mg oral tablet (20 sources) Nonsteroidal Anti-inflammatory Drug Start: 07-26-2023 End: 03-03-2024 take 1 tablet by kalie th three times daily at mealtime as needed Ibuprofen 200 MG 1 tablet with food or milk as needed Orally Three times a day Active Insulin Aspart U-100 (Novolo g Flexpen U-100 Insulin) 100 unit/mL (3 mL) Insulin Pen (10 sources) Start: 03-13-2024 End: 04-05-2024 Insulin Aspart U-100 (Novolo g Flexpen U-100 Insulin) 100 unit/mL (3 mL) Insulin Pen Discontinued 0 UNIT SUBCUT 3X/Day with meals and bedtime 0 March 13, 2024 12:00am April 05, 2024 3:27pm Please contact the information source for Protocol details. Start: 03-13-2024 End: 04-05-2024 Insulin Aspart U-100 (Novolo g Flexpen U-100 Insulin) 100 unit/mL (3 mL) Insulin Pen Discontinued 0 UNIT SUBCUT 3X/Day with meals and bedtime March 12, 2024 11:00pm April 05, 2024 2:27pm Please contact the information source for Protocol details. Start: 03-13-2024 Insulin Aspart U-100 (Novolog Flexpen U-100 Insulin) 100 unit/mL (3 mL) Insulin Pen Active 0 UNIT SUBCUT 3X/Day with meals and bedtime 0 March 13, 2024 12:00am Insulin Aspart U-100 (Novolo g Flexpen U-100 Insulin) 100 unit/mL (3 mL) insulin pen (18 sources) Start: 04-08-2024 End: 05-07-2024 Insulin Aspart U-100 (Novolo g Flexpen U-100 Insulin) 100 unit/mL (3 mL) insulin pen Discontinued 0 UNIT SUBCUT 3X/Day with meals and bedtime April 08, 2024 4:23pm May 07, 2024 5:32pm Please contact the information source for Protocol details. Start: 04-08-2024 End: 05-07-2024 Insulin Aspart U-100 (Novolo g Flexpen U-100 Insulin) 100 unit/mL (3 mL) insulin pen Discontinued 0 UNIT SUBCUT 3X/Day with meals and bedtime April 08, 2024 3:23pm May 07, 2024 4:32pm Please contact the information source for Protocol details. Start: 04-08-2024 Insulin Aspart U-100 (Novolog Flexpen [...] with meals and bedtime April 05, 2024 3:15pm April 08, 2024 4:25pm Please contact the information source for Protocol details. Start: 04-05-2024 End: 04-08-2024 Insulin Aspart U-100 (Novolo g Flexpen U-100 Insulin) 100 unit/mL (3 mL) insulin pen Discontinued 0 UNIT SUBCUT 3X/Day with meals and bedtime April 05, 2024 2:15pm April 08, 2024 3:25pm Please contact the information source for Protocol details. 3 ml insulin glargine 100 un t/ml pen injector (20 sources) Insulin Analog Start: 03-03-2024 End: 03-08-2024 Start: 02-21-2024 inject 35 [IU] by monk bcutaneous injection at bedtime insulin glargine 100 units/mL SubQ Maalika 10 mL 35 unit(s), SubCutaneous, Bedtime, Refills(s) 0 Start Date: 02/21/24 Status: Ordered Insulin Lispro (Humalog Kwikpen Insulin) 100 unit/mL insulin pen (12 sources) Start: 03-03-2024 End: 03-08-2024 Insulin Lispro [...] March 03, 2024 12:00am 200 actuat ipratropium bromi de 0.017 mg/actuat metered dose inhaler (17 sources) Anticholinergic Start: 03-03-2024 End: 03-13-2024 Start: 03-03-2024 End: 03-13-2024 Ipratropium [place] (Atroven t Hfa) 17 mcg/actuation HFA aerosol inhaler Discontinued 2 INH INHALATION Three times daily March 03, 2024 12:00am March 13, 2024 1:06pm Ketorolac (20 sources) Nonsteroidal Anti-inflammatory Drug, Cyclooxygenase Inhibitor Start: 01-15-2018 Toradol p er 15 mg Jan, 2 cc Start: 01-05-2018 Toradol per 15 mg Jan, 2 cc Start: 01-04-2018 Toradol per 15 mg Jan, 2 cc lansoprazole 30 mg delayed r elease oral capsule (20 sources) Proton Pump Inhibitor Start: 07-24-2019 End: 07-14-2020 magnesium oxide 400 mg oral tablet (20 sources) Start: 05-07-2024 End: 09-05-2024 Start: 03-13-2024 End: 04-04-2024 magnesium oxide (Mag-Ox) 400 MG tablet 1 tablet (400 mg) 3 times a day. Active Nutritional Supplements (Nut ra Pro High Protein) powder (12 sources) Start: 03-03-2024 End: 03-08-2024 Nutritional Supplements [...] 03, 2024 12:00am olmesartan medoxomil 5 mg or al tablet (20 sources) Angiotensin 2 Receptor Lamont Start: 03-13-2019 End: 07-24-2019 oxyCODONE hydrochloride 10 m g oral tablet (20 sources) Opioid Agonist Start: 03-03-2024 End: 03-08-2024 Start: 02-21-2024 take 2 tablets by [facility] every six hours as needed for pain [...] tablet 11/14/2023 11/21/2023 Active polyethylene glycol 3350 170 00 mg powder for oral solution (20 sources) Osmotic Laxative Start: 02-21-2024 End: 03-08-2024 12 hr ranolazine 1000 mg ext ended release oral tablet (20 sources) Anti-anginal Start: 07-10-2014 End: 07-14-2020 rimegepant 75 mg disintegrat ing oral tablet (20 sources) Start: 05-07-2024 End: 08-30-2024 Start: 04-04-2024 End: 04-23-2024 Start: 04-04-2024 End: 04-23-2024 take 1 tablet by mouth once Rimegepant (Nurtec Odt) 75 mg tablet,disintegrating Discontinued 75 MG PO Once April 04, 2024 12:00am April 23, 2024 1:49pm Start: 02-12-2024 take 1 tablet by kalie th every twenty-four hours as needed for headache Nurtec ODT 75 mg oral tablet, disintegrating 75 mg = 1 tab(s), Oral, q24hr, PRN Migraine headache, Refills(s) 0 Start Date: 02/12/24 Status: Ordered Start: 07-12-2023 End: 03-13-2024 Start: 07-12-2023 End: 03-13-2024 take 1 tablet by mouth once daily as needed for headache Rimegepant (Nurtec Odt) 75 mg tablet,disintegrating Discontinued 75 MG PO Daily as needed for migraine headache July 12, 2023 1:00am March 13, 2024 1:06pm rOPINIRole 0.5 mg oral table t (20 sources) Nonergot Dopamine Agonist Start: 04-04-2024 End: 11-05-2024 Start: 04-04-2024 End: 08-11-2024 take 1 tablet by mouth three times daily Ropinirole 0.5 mg tablet Discontinued 0.5 MG PO Three times daily 270 90 July 04, 2024 4:43pm August 11, 2024 4:40am Start: 04-01-2018 End: 04-04-2024 Start: 04-01-2018 End: 04-04-2024 Start: 01-24-2011 End: 03-13-2024 take 1 tablet by mouth three times daily Ropinirole 1 mg tablet Discontinued 1 MG PO Three times daily 240 January 24, 2024 12:28pm March 13, 2024 1:06pm Sennosides (Senna Laxative) 8.6 mg tablet (12 sources) Start: 03-03-2024 End: 03-08-2024 take 1 [...] Start: 03-03-2024 take 1 tablet by kalie th twice daily Sennosides (Senna Laxative) 8.6 mg tablet Active 8.6 MG PO Twice daily March 03, 2024 12:00am sulfamethoxazole 800 mg / trimethoprim 160 mg oral tablet (11 sources) Dihydrofolate Reductase Inhibitor Antibacterial, Sulfonamide Antimicrobial Start: 04-19-2024 End: 04-23-2024 Start: 04-19-2024 End: 04-23-2024 take 1 tablet by mouth twice daily Sulfamethoxazole-Trimethoprim 800-160 mg tablet Discontinued 1 TAB PO Twice daily April 19, 2024 1:00am April 23, 2024 1:50pm Toradol 30 mg/ml (20 sources) Start: 07-25-2022 Toradol 30 mg/ ml Jul, 60 mg Start: 07-18-2022 Toradol 30 mg/ ml Jul, 60 mg Start: 07-13-2022 Toradol 30 mg/ ml Jul, 60 mg Start: 07-04-2022 Toradol 30 mg/ ml Jun, 60 mg traZODone hydrochloride 50 m g oral tablet (20 sources) Serotonin Reuptake Inhibitor Start: 07-24-2019 End: 07-14-2020 Start: 07-24-2019 End: 07-14-2020 take 1 tablet by mouth at bedtime Trazodone 50 mg tablet Discontinued 50 MG PO Bedtime July 24, 2019 1:00am July 14, 2020 12:40pm Triamcinolone (20 sources) Corticosteroid Start: 10-02-2013 KENALOG - 10 mg Sep, 1 cc varenicline 1 mg oral tablet (18 sources) Partial Cholinergic Nicotinic Agonist Start: 07-14-2020 End: 07-12-2023 take 1 tablet by mouth twice daily, then take 1 tablet by mouth once Varenicline Tartrate (Chantix Continuing Month Box) 1 mg tablet Discontinued 1 MG PO Twice daily July 14, 2020 1:00am July 12, 2023 6:30pm vitamin b12 1 mg oral capsule (1 source) Vitamin B12 Start: 11-05-2024 End: 11-05-2024 Problems Active Problems Problem Classification Problem Date Documented Date Episodic/Chronic Abdominal pain (20 sources) Abdominal pain; Translations: [Unspecified abdominal pain] Episodic Acute and unspecified renal failure (20 sources) Renal failure syndrome; Translations: [Unspecified kidney failure] Chronic Acute and unspecified renal failure (17 sources) Acute renal failure syndrome; Translations: [Acute kidney failure, unspecified] Onset: 08-11-2024 08-11-2024 Episodic Acute myocardial infarction (20 sources) Myocardial infarction; Translations: [Acute myocardial infarction, unspecified] Onset: 10-30-2023 10-10-2014 Chronic Administrative/social admission (13 sources) Drug therapy finding; Translations: [Other specified [...] 10-19-2021 Resolved: 10-19-2021 Chronic Chronic kidney disease (7 sources) Chronic kidney disease; Translations: [Stage 3 [...] [Coronary atherosclerosis of unspecified type of vessel, [place] or graft] Onset: 07-27-2021 Resolved: 02-15-2022 Chronic Deficiency and other anemia (1 source) Anemia in chronic kidney disease; Translations: [Anemia in chronic kidney disease] Onset: 08-11-2024 Chronic Deficiency and other anemia (20 sources) Anemia; Translations: [Anemia, unspecified] Onset: 02-12-2024 [...] hypertension] Onset: 11-05-2013 Resolved: 01-01-2024 04-02-2018 Chronic Fluid and electrolyte disorders (20 sources) Hypokalemia; Translations: [Hypokalemia] Onset: 08-11-2024 08-11-2024 Episodic Genitourinary symptoms and ill-defined conditions (20 sources) Retention of urine; Translations: [Retention of urine, unspecified] Onset: 11-23-2022 Episodic Gout and other crystal arthropathies (20 sources) Gout; Translations: [Gout, unspecified] Onset: 02-15-2022 Resolved: 02-15-2022 Chronic Headache; including migraine (5 sources) Migraine; [...] deficiency, unspecified] Onset: 02-15-2022 Resolved: 02-15-2022 Chronic Nutritional deficiencies (20 sources) Cobalamin deficiency; Translations: [Deficiency of other specified B group vitamins] Onset: 08-11-2024 08-11-2024 Episodic Osteoarthritis (20 sources) Arthritis; Translations: [Unspecified osteoarthritis, unspecified site] Onset: 10-30-2023 01-16-2013 Chronic Other acquired deformities (20 sources) Contracture of joint of hand; Translations: [Contracture, 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 Other aftercare (20 sources) Long-term current use of insulin; Translations: [halfway (current) use of insulin] 01-03-2024 Episodic Other and ill-defined heart disease (18 sources) Heart disease 11-23-2022 Chronic Other bone disease and musculoskeletal deformities (12 sources) History of amputation of right leg through tibia and fibula; Translations: [Acquired absence of right leg below knee] 04-05-2024 Chronic Comment on above: 02/2024 [facility] by Dr. 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 Other connective tissue [...] Chronic Other diseases of kidney and ureters (2 sources) Urinary tract obstruction; Translations: [Other obstructive and reflux uropathy] Onset: 05-27-2024 Episodic Other disorders of stomach and duodenum (11 sources) Disorder of stomach; Translations: [Other diseases [...] [Restless legs syndrome (RLS)] Onset: 07-27-2021 Resolved: 09-13-2022 Chronic Other injuries and conditions due to external causes (15 sources) Hypothermia; Translations: [Hypothermia, initial encounter] 03-08-2024 Episodic Other injuries and conditions due to external causes (4 sources) Hypothermia, initial encounter; Translations: [Hypothermia] 03-08-2024 Episodic Other lower respiratory disease (20 sources) Solitary nodule of lung; Translations: [Solitary pulmonary nodule] Episodic Other male genital disorders (20 sources) Impotence of organic origin; Translations: [Male erectile dysfunction, unspecified] Chronic Other male genital disorders (16 sources) Male erectile dysfunction, unspecified; Translations: [Erectile dysfunction] Onset: 07-27-2021 Resolved: 02-15-2022 Chronic Other nervous system disorders (20 sources) Neuropathy; Translations: [Polyneuropathy, unspecified] 08-12-2024 Chronic Other nervous system disorders (16 sources) [...] 10-27-2020 12-17-2023 Chronic Other nervous system disorders (19 sources) Carpal tunnel syndrome; Translations: [Carpal tunnel syndrome, unspecified upper limb] Onset: 10-06-2023 10-06-2023 Chronic Other nervous system disorders (7 sources) Polyneuropathy, unspecified; Translations: [Mononeuritis of unspecified site] Onset: 10-26-2024 08-30-2024 Chronic Other nervous system disorders (1 source) Other chronic pain; Translations: [Other chronic pain] Onset: 03-04-2024 Chronic Other nervous system disorders (20 sources) Skin sensation disturbance; Translations: [Paresthesia of skin] Episodic Other nervous system disorders (1 source) Other acute postprocedural pain; Translations: [Other acute postprocedural pain] Onset: 11-07-2023 Episodic Other nervous system disorders (20 sources) Tremor; Translations: [Tremor, unspecified] 04-19-2024 Episodic Other nervous system disorders (8 sources) Paresthesia; Translations: [Paresthesia of skin] 08-11-2024 Episodic Other nervous system disorders (8 sources) Numbness; Translations: [Anesthesia of skin] 08-11-2024 Episodic Other nervous system disorders (9 sources) Anesthesia of skin; Translations: [Disturbance of skin sensation] Onset: 08-11-2024 08-11-2024 Episodic Other nervous system disorders (9 sources) Paresthesia of skin; Translations: [Disturbance of skin sensation] Onset: 08-11-2024 08-11-2024 Episodic Other nutritional; endocrine; and metabolic disorders (20 sources) Obesity; Translations: [Obesity, unspecified] Chronic Other nutritional; endocrine; and metabolic disorders (20 sources) Obese class II; Translations: [Body mass index (BMI) 35.0-35.9, adult] Chronic Other nutritional; endocrine; and metabolic disorders (20 sources) Obese class I; Translations: [Body mass index (BMI) 34.0-34.9, adult] 04-02-2018 Chronic Other nutritional; endocrine; and metabolic disorders (4 sources) Body mass index (BMI) 34.0-34.9, adult; Translations: [Body Mass Index 34.0-34.9, adult] Onset: 10-19-2021 Resolved: 10-19-2021 Chronic Other nutritional; endocrine; and metabolic disorders (14 sources) Hyperbilirubinemia; Translations: [Other disorders of bilirubin metabolism] 03-10-2024 Chronic Other nutritional; endocrine; and metabolic disorders (4 sources) Other disorders of bilirubin metabolism; Translations: [Jaundice, unspecified, not of ] Onset: 03-08-2024 03-13-2024 Chronic Other nutritional; endocrine; and metabolic disorders (9 sources) Body mass index 30+ - obesity; Translations: [Body mass index (BMI) 34.0-34.9, adult] 05-06-2024 Chronic Other nutritional; endocrine; and metabolic disorders (9 sources) Hypomagnesemia; Translations: [Hypomagnesemia] 05-07-2024 Chronic Other nutritional; endocrine; and metabolic disorders (16 sources) Hypomagnesemia; Translations: [Disorders of magnesium metabolism] Onset: 08-11-2024 05-07-2024 Chronic Other nutritional; endocrine; and metabolic disorders (8 sources) Hypocalcemia; Translations: [Hypocalcemia] 08-11-2024 Chronic Other nutritional; endocrine; and metabolic disorders (17 sources) Hypocalcemia; Translations: [Hypocalcemia] Onset: 08-11-2024 08-11-2024 Chronic Other nutritional; endocrine; and metabolic disorders (6 sources) Overweight in adulthood with body mass index of 25 or more but less than 30; Translations: [Overweight] Episodic Other screening for suspected conditions (not mental disorders or infectious disease) (17 sources) Imaging result abnormal; Translations: [Abnormal findings [...] Translations: [Insomnia, unspecified] Episodic Residual codes; unclassified (20 sources) FH: premature coronary heart disease; Translations: [Family history of ischemic heart disease and other diseases of the circulatory system] 04-01-2018 Episodic Comment on above: Reports mother had q uadruple bypass at age of 45 Residual codes; unclassified (19 sources) Tobacco user; Translations: [Tobacco use] Onset: 02-15-2024 01-16-2013 Episodic Comment on above: Added secondary to s ocial history documentation. Residual codes; unclassified (2 sources) Other specified postprocedural states; Translations: [Other specified postprocedural states] Onset: 11-07-2023 Episodic Residual codes; unclassified (1 source) Pain, unspecified; Translations: [Pain, unspecified] Onset: 03-12-2024 Episodic Residual codes; unclassified (19 sources) Altered mental status; Translations: [Altered mental status, unspecified] Onset: 03-15-2024 03-08-2024 Episodic Residual codes; unclassified (12 sources) Noncompliance with medication regimen; Translations: [Noncompliance with medication regimen] 08-30-2024 Episodic Spondylosis; intervertebral disc disorders; other back [...] lower extremity with gangre Onset: 11-30-2023 Unclassified (3 sources) Patient encounter status 05-27-2024 Urinary tract [...] limb due to atherosclerosis; 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 Performed By: #### A 1C [facility] eA ####[place] [id number] [facility] HbA1c (Bld) [Mass fraction] 8.3 % High 4.3-5.6 [facility] Comment on above: Result Comment: Incr eased risk for diabetes: 5.7 - 6.4 diabetes: >6.4 glycemic control for adults with diabetes: <7.0 Performed By: #### A 1C [facility] eA ####[address] [address] [facility] Alanine aminotransferase [En zymatic activity/volume] in Serum or PlasmaOrdered By: Teresa Lynch on 10-26-2024 ALT [Catalytic activity/Vol] Alanine aminotransferase [Enzymatic activity/volume] in Serum or Plasma [facility] Albumin [Mass/volume] in Ser um or Plasma by Bromocresol green (BCG) dye binding methoOrdered By: Teresa Lynch on 10-26-2024 Albumin BCG dye [Mass/Vol] Albumin [Mass/volume] in Serum or Plasma by Bromocresol green (BCG) dye binding metho 3.5-5.7 [facility] Alkaline phosphatase [Enzyma tic activity/volume] in Serum or PlasmaOrdered By: Teresa Lynch on 10-26-2024 ALP [Catalytic activity/Vol] Alkaline phosphatase [Enzymatic activity/volume] in Serum or Plasma High 34-104 [facility] Anisocytosis LM Ql (Bld)Orde red By: Maurice Francis on 10-26-2024 Anisocytosis Ql (Bld) Anisocytosis [Pres ence] in Blood by Light microscopy [facility] Appearance of UrineOrdered B y: Amina Fagan on 10-26-2024 Appearance (U) Urine appearance Clear [facility] Aspartate aminotransferase [ Enzymatic activity/volume] in Serum or PlasmaOrdered By: Teresa Lynch on 10-26-2024 AST [Catalytic activity/Vol] Aspartate aminotransferase [Enzymatic activity/volume] in Serum or Plasma 13-39 [facility] Basophils Auto (Bld) [#/Vol] Ordered By: Maurice Francis on 10-26-2024 Basophils (Bld) [#/Vol] Automated basophil count 0.0-0.2 [facility] Basophils/100 WBC Auto (Bld) Ordered By: Maurice Francis on 10-26-2024 Basophils/100 WBC (Bld) Automated basophil % . [facility] Bilirubin Test strip Ql (U)O rdered By: Amina Fagan on 10-26-2024 Bilirubin Ql (U) Bilirubin.total [Presence] in Urine by Test strip Negative [facility] Bilirubin.total [Mass/volume ] in Serum or PlasmaOrdered By: Teresa Lynch on 10-26-2024 Bilirubin [Mass/Vol] Bilirubin.total [Mass/volume] in Serum or Plasma 0.3-1.0 [facility] Blood estimated average gluc ose determination by estimation from glycated hemoglobinOrdered By: Teresa Lynch on 10-26-2024 Average glucose Estimated from glycated hemoglobin (Bld) [Mass/Vol] Glucose mean value [Mass/volume] in Blood Estimated from glycated hemoglobin [facility] Calcium [Mass/volume] in Ser um or PlasmaOrdered By: Teresa Lynch on 10-26-2024 Calcium [Mass/Vol] Calcium [Mass/volume ] in Serum or Plasma 8.6-10.3 [facility] Carbon dioxide, total [Moles /volume] in Serum or PlasmaOrdered By: Teresa Lynch on 10-26-2024 CO2 [Moles/Vol] Carbon dioxide, tota l [Moles/volume] in Serum or Plasma 21.0-31.0 [facility] Chloride [Moles/volume] in S ilia or PlasmaOrdered By: Teresa Lynch on 10-26-2024 Chloride [Moles/Vol] Chloride [Moles/vol ume] in Serum or Plasma 98-107 [facility] Cholesterol [Mass/volume] in Serum or PlasmaOrdered By: Teresa Lynch on 10-26-2024 Cholesterol [Mass/Vol] Cholesterol [Mass /volume] in Serum or Plasma Low 140-200 [facility] Comment on above: Chol less than 200 m g/dl low riskChol 201-239 mg/dl borderline riskChol 240 mg/dl and greater high risk Cholesterol in HDL [Mass/vol ume] in Serum or PlasmaOrdered By: Teresa Lynch on 10-26-2024 Cholesterol in HDL [Mass/Vol] Serum or plasma high density lipoprotein (HDL) cholesterol measurement Low 23-92 [facility] Comment on above: HDL CHOL ATP-III CLA SSIFICATION Cardiovascular RiskHDL > or equal to 60 mg/dL LOWHDL < 40 mg/dL HIGH Cholesterol in LDL Calc [Mas s/Vol]Ordered By: Teresa Lynch on 10-26-2024 Cholesterol in LDL [Mass/Vol] Cholesterol in LDL [Mass/volume] in Serum or Plasma by calculation 0-100 [facility] Comment on above: LDL ATP III CLASSIFI CATIONLDL less than 100 mg/dL OptimalLDL 100-129 mg/dL Near or above optimalLDL 130-159 mg/dL Borderline highLDL 160-189 mg/dL HighLDL greater than 189 mg/dL Very high Cholesterol in LDL [Mass/vol ume] in Serum or PlasmaOrdered By: Teresa Lynch on 10-26-2024 Cholesterol in LDL [Mass/Vol] Cholesterol in LDL [Mass/volume] in Serum or Plasma 0-100 [facility] Comment on above: LDL ATP III CLASSIFI CATIONLDL less than 100 mg/dL OptimalLDL 100-129 mg/dL Near or above optimalLDL 130-159 mg/dL Borderline highLDL 160-189 mg/dL HighLDL greater than 189 mg/dL Very high Cholesterol in VLDL Calc [Ma ss/Vol]Ordered By: Teresa Lynch on 10-26-2024 Cholesterol in VLDL [Mass/Vol] Cholesterol in VLDL [Mass/volume] in Serum or Plasma by calculation [facility] Comment on above: Test not performed Color Auto (U)Ordered By: Norris Fagan on 10-26-2024 Color (U) Color of Urine by Auto Yellow [facility] Comprehensive Metabolic Pane guy 10-26-2024 Albumin [Mass/Vol] 4.3 g/dL Normal 3.5-5.7 [facility] Comment on above: Performed By: #### C MP, RENAL ####[place] [address] [place] [id number] [facility] Albumin/Globulin [Mass ratio] 1.7 {ratio} Normal [facility] Comment on above: Performed By: #### C MP, RENAL ####[place] [address] [place] [address] [facility] ALP [Catalytic activity/Vol] 132 U/L High 34-104 [facility] Comment on above: Performed By: #### C MP, RENAL ####[place] [address] [place] [address] [facility] ALT [Catalytic activity/Vol] 16 U/L Normal 7-52 [facility] Comment on above: Performed By: #### C MP, RENAL ####[place] [address] [place] [address] [facility] Anion gap [Moles/Vol] 16.4 mmol/L High 6.0-15.0 [facility] Comment on above: Performed By: #### C MP, RENAL ####[place] [address] [place] [address] [facility] AST [Catalytic activity/Vol] 13 U/L Normal 13-39 [facility] Comment on above: Performed By: #### C MP, RENAL ####[place] [id number] [facility] Bilirubin [Mass/Vol] 0.4 mg/dL Normal 0.3-1.0 [facility] Comment on above: Performed By: #### C MP, RENAL ####[place] [id number] [facility] Calcium [Mass/Vol] 9.4 mg/dL Normal 8.6-10.3 [facility] Comment on above: Performed By: #### C MP, RENAL ####[place] [id number] [facility] Chloride [Moles/Vol] 98 mmol/L Normal 98-107 [facility] Comment on above: Performed By: #### C MP, RENAL ####[place] [id number] [facility] CO2 [Moles/Vol] 27.2 mmol/L Normal 21.0-31.0 [facility] Comment on above: Performed By: #### C MP, RENAL ####[place] [id number] [facility] Creatinine [Mass/Vol] 2.36 mg/dL High 0.70-1.30 [facility] Comment on above: Performed By: #### C MP, RENAL ####[place] [id number] [facility] Estimated GFR 30.940 mL/Min Normal [facility] Comment on above: Performed By: #### C MP, RENAL ####[place] [id number] [facility] Globulin (S) [Mass/Vol] 2.6 g/dL Normal [facility] Comment on above: Performed By: #### C MP, RENAL ####[place] [id number] [facility] Glucose [Mass/Vol] 264 mg/dL High 70-100 [facility] Comment on above: Result Comment: [place] Glucose Reference Range is dependent on time and content of last meal. Glucose of more than 200 mg/dL in a nonstressed, ambulatory subject supports the diagnosis of Diabetes Mellitus. ADA recommended reference range Performed By: #### C MP, RENAL ####[facility] [id number] Potassium [Moles/Vol] 4.6 mmol/L Normal 3.5-5.1 [facility] Comment on above: Performed By: #### C MP, RENAL ####[facility] [id number] Protein [Mass/Vol] 6.9 g/dL Normal 6.4-8.9 [facility] Comment on above: Performed By: #### C MP, RENAL ####[facility] Sodium [Moles/Vol] 137 mmol/L Normal 136-145 [facility] Comment on above: Performed By: #### C MP, RENAL ####[facility] Urea nitrogen [Mass/Vol] 33 mg/dL High 7-25 [facility] Comment on above: Performed By: #### C MP, RENAL ####[facility] Creatinine [Mass/volume] in Serum or PlasmaOrdered By: Teresa Lynch on 10-26-2024 Creatinine [Mass/Vol] Creatinine [Mass/v olume] in Serum or Plasma High 0.70-1.30 [facility] Creatinine [Mass/volume] in UrineOrdered By: Amina Fagan on 10-26-2024 Creatinine (U) [Mass/Vol] Creatinine [Mass/volume] in Urine [facility] Comment on above: No reference range e stablished Eosinophils Auto (Bld) [#/Vo l]Ordered By: Maurice Francis on 10-26-2024 Eosinophils (Bld) [#/Vol] Automated eosinophil count 0.0-0.45 [facility] Eosinophils/100 WBC Auto (Bl d)Ordered By: Maurice Francis on 10-26-2024 Eosinophils/100 WBC (Bld) Automated eosinophil % . [facility] Erythrocyte distribution wid th Auto (RBC) [Ratio]Ordered By: Maurice Francis on 10-26-2024 Erythrocyte distribution width (RBC) [Ratio] Erythrocyte distribution width [Ratio] by Automated count High 12.0-14.8 [facility] Erythrocyte morphology findi ng [Identifier] in BloodOrdered By: Maurice Francis on 10-26-2024 RBC morphology finding Nom (Bld) RBC morphology [facility] Ferritinon 10-26-2024 Ferritin [Mass/Vol] 8.3 ng/mL Low 23.9-336.2 [facility] Comment on above: Performed By: #### F ER, [id number], URIC, PTH, FE and TIBC ####[facility] [id number] [place] [id number] [facility] Ferritin [Mass/volume] in Se rum or PlasmaOrdered By: Amina Fagan on 10-26-2024 Ferritin [Mass/Vol] Ferritin [Mass/volum e] in Serum or Plasma Low 23.9-336.2 [facility] Folate [Mass/volume] in Seru m or PlasmaOrdered By: Amina Fagan on 10-26-2024 Folate [Mass/Vol] Folate [Mass/volume] in Serum or Plasma >5.9 [facility] Comment on above: Folate reference ran ge: >5.9 ng/mlThe WHO technical consultation on folate and vitamin [id number] has determined that folate concentrations lessthan 4 ng/ml are considered deficient. Globulin Calc (S) [Mass/Vol] Ordered By: Teresa Lynch on 10-26-2024 Globulin (S) [Mass/Vol] Serum globulin measurement by calculation (mass/volume) [facility] Glucose [Mass/volume] in Ser um or PlasmaOrdered By: Teresa Lynch on 10-26-2024 Glucose [Mass/Vol] Glucose [Mass/volume ] in Serum or Plasma High 70-100 [facility] Comment on above: ADA recommended refe rence rangeRandom Glucose Reference Range is dependent on time and content of last meal. Glucose of more than 200 mg/dL in a nonstressed, ambulatory subject supports the diagnosis of Diabetes Mellitus. Glucose [Mass/volume] in Uri ne by Test stripOrdered By: Amina Fagan on 10-26-2024 Glucose Test strip (U) [Mass/Vol] Glucose [Mass/volume] in Urine by Test strip High Normal [facility] Hematocrit Auto (Bld) [Volum e fraction]Ordered By: Maurice Francis on 10-26-2024 Hematocrit (Bld) [Volume fraction] Hematocrit [Volume Fraction] of Blood by Automated count 38.8-50.0 [facility] Hemoglobin A1c/Hemoglobin.to roberto carlos in BloodOrdered By: Teresa Lynch on 10-26-2024 HbA1c (Bld) [Mass fraction] Hemoglobin A1c percentage High 4.3-5.6 [facility] Comment on above: Increased risk for d iabetes: 5.7 - 6.4diabetes: >6.4glycemic control for adults with diabetes: <7.0 Hemoglobin Test strip Ql (U) Ordered By: Amina Fagan on 10-26-2024 Hemoglobin Ql (U) Hemoglobin [Presence ] in Urine by Test strip Negative [facility] Hemoglobin [Mass/volume] in BloodOrdered By: Maurice Francis on 10-26-2024 Hemoglobin (Bld) [Mass/Vol] Hemoglobin [Mass/volume] in Blood 13.0-17.0 [facility] Iron [Mass/volume] in Serum or PlasmaOrdered By: Amina Fagan on 10-26-2024 Iron [Mass/Vol] Iron [Mass/volume] i n Serum or Plasma Low 50-212 [facility] Iron and TIBC Profileon 10-04 % Iron Saturation 6.9 % Low 20-50 [facility] Comment on above: Performed By: #### F ER, [id number], URIC, PTH, FE and TIBC ####[facility] [id number] [place] [address] [facility] Iron [Mass/Vol] 31 ug/dL Low 50-212 [facility] Comment on above: Performed By: #### F ER, [id number], URIC, PTH, FE and TIBC ####[facility] [id number] [place] [address] [facility] Total Iron Binding Capacity 449 ug/dL Normal 255-450 [facility] Comment on above: Performed By: #### F ER, [id number], URIC, PTH, FE and TIBC ####[place] [address] [address] Transferrin [Mass/Vol] 321 mg/dL Normal 203-362 [facility] Comment on above: Performed By: #### F ER, [id number], URIC, PTH, FE and TIBC ####[place] [address] [place] [id number] [facility] Ketones Test strip Ql (U)Ord ered By: Amina Fagan on 10-26-2024 Ketones Ql (U) Ketones [Presence] i n Urine by Test strip Negative [facility] LDL Cholesterol Measuredon 0 - LDL Cholesterol Measured 36 mg/dL Normal 0-100 [facility] Comment on above: Result Comment: LDL ATP III CLASSIFICATION LDL less than 100 mg/dL Optimal LDL 100-129 mg/dL Near or above optimal LDL 130-159 mg/dL Borderline high LDL 160-189 mg/dL High LDL greater than 189 mg/dL Very high Performed By: #### L DLD, MG, URIC, TSH3, [id number], PSAS, LIPID ####[place] [address] Leukocyte esterase [Presence ] in Urine by Test stripOrdered By: Amina Fgaan on 10-26-2024 Leukocyte esterase Test strip Ql (U) Leukocyte esterase [Presence] in Urine by Test strip Negative [facility] Leukocytes [#/volume] correc jorge for nucleated erythrocytes in Blood by Automated counOrdered By: Maurice Francis on 10-26-2024 WBC corrected for nucl RBC Auto (Bld) [#/Vol] Leukocytes [#/volume] corrected for nucleated erythrocytes in Blood by Automated coun 4.1-10.5 [facility] Lipid Panelon 10-26-2024 Cholesterol [Mass/Vol] 108 mg/dL Low 140-200 [facility] Comment on above: Result Comment: Chol less than 200 mg/dl low risk Chol 201-239 mg/dl borderline risk Chol 240 mg/dl and greater high risk Performed By: #### L DLD, MG, URIC, TSH3, [id number], PSAS, LIPID ####[place] [address] Cholesterol in HDL [Mass/Vol] 21 mg/dL Low 23-92 [facility] Comment on above: Result Comment: HDL CHOL ATP-III CLASSIFICATION Cardiovascular Risk HDL > or equal to 60 mg/dL LOW HDL < 40 mg/dL HIGH Performed By: #### L DLD, MG, URIC, TSH3, [id number], PSAS, LIPID ####[place] [address] Cholesterol.total/Chol esterol in HDL [Mass ratio] 5.1 {ratio} Normal <5.0 [facility] Comment on above: Performed By: #### L DLD, MG, URIC, TSH3, [id number], PSAS, LIPID ####[place] [address] LDL Cholesterol,Calculated <10 Normal 0-100 [facility] Comment on above: Result Comment: LDL ATP III CLASSIFICATION LDL less than 100 mg/dL Optimal LDL 100-129 mg/dL Near or above optimal LDL 130-159 mg/dL Borderline high LDL 160-189 mg/dL High LDL greater than 189 mg/dL Very high Performed By: #### L DLD, MG, URIC, TSH3, [id number], PSAS, LIPID ####[place] [address] [place] [id number] [facility] Triglyceride w/Reflex 529 mg/dL High 0-149 [facility] Comment on above: Result Comment: TRIG ATP III CLASSIFICATION TRIG less than 150 mg/dL Normal TRIG 150-199 mg/dL Borderline high TRIG 200-500 mg/dL High TRIG greater than 500 mg/dL Very high Standard traceable to the Center for Disease Conrtrol and Prevention (CDC) test method. If the triglyceride result is greater than 400, LDLC and related calculations cannot be calculated and resulted. Performed By: #### L DLD, MG, URIC, TSH3, [id number], PSAS, LIPID ####[address] VLDL CHOLESTEROL Not performed Normal [facility] Comment on above: Performed By: #### L DLD, MG, URIC, TSH3, [id number], PSAS, LIPID ####[facility] [id number] [place] [id number] [facility] Lymphocytes Auto (Bld) [#/Vo l]Ordered By: Maurice Tito on 10-26-2024 Lymphocytes (Bld) [#/Vol] Lymphocytes [#/volume] in Blood by Automated count 1.00-4.8 [facility] Lymphocytes/100 WBC Auto (Bl d)Ordered By: Maurice Tito on 10-26-2024 Lymphocytes/100 WBC (Bld) Lymphocytes/100 leukocytes in Blood by Automated count . [facility] MCH Auto (RBC) [Entitic mass ]Ordered By: Maurice Reinar on 10-26-2024 MCH (RBC) [Entitic mass] MCH [Entitic mass] by Automated count Low 27.5-35.2 [facility] MCHC Auto (RBC) [Mass/Vol]Or dered By: Maurice Tito on 10-26-2024 MCHC (RBC) [Mass/Vol] MCHC [Mass/volume] by Automated count 32.5-35.6 [facility] MCV Auto (RBC) [Entitic vol] Ordered By: Maurice Tito on 10-26-2024 MCV (RBC) [Entitic vol] MCV [Entitic volume] by Automated count Low 83.5-101 [facility] Magnesiumon 10-26-2024 Magnesium [Mass/Vol] 1.8 mg/dL Low 1.9-2.7 [facility] Comment on above: Performed By: #### L DLD, MG, URIC, TSH3, [id number], PSAS, LIPID ####[facility] [place] [address] [facility] Magnesium [Mass/volume] in S ilia or PlasmaOrdered By: Teresa Lynch on 10-26-2024 Magnesium [Mass/Vol] Magnesium [Mass/vol ume] in Serum or Plasma Low 1.9-2.7 [facility] Microalbumin [Mass/volume] i n UrineOrdered By: Teresa Lynch on 05-24-2025 Albumin DL <= 20 mg/L (U) [Mass/Vol] Microalbumin [Mass/volume] in Urine 0.0-1.8 [facility] Microalbumin, Urine (Random) on 10-26-2024 Albumin DL <= 20 mg/L (U) [Mass/Vol] 0.9 mg/dL Normal 0.0-1.8 [facility] Comment on above: Result Comment: PERF ORMED BY:[facility] [place], [place] [id number] MEDICAL DIRECTORBREANNE RUTHERFORD M.D. Performed By: #### U RMA ####[facility] [place] [address] [facility] Microcytes LM Ql (Bld)Ordere d By: Maurice Francis on 10-26-2024 Microcytes Ql (Bld) Microcytes [Presence ] in Blood by Light microscopy [facility] Monocytes Auto (Bld) [#/Vol] Ordered By: Maurice Reinar on 10-26-2024 Monocytes (Bld) [#/Vol] Automated blood monocyte count 0.0-0.8 [facility] Monocytes/100 WBC Auto (Bld) Ordered By: Maurice Swansondir on 10-26-2024 Monocytes/100 WBC (Bld) Automated monocyte % . [facility] Neutrophils Auto (Bld) [#/Vo l]Ordered By: Maurice Reinar on 10-26-2024 Neutrophils (Bld) [#/Vol] Neutrophils [#/volume] in Blood by Automated count 1.8-7.7 [facility] Neutrophils/100 WBC Auto (Bl d)Ordered By: Maurice Tito on 10-26-2024 Neutrophils/100 WBC (Bld) Automated neutrophil % . [facility] Nitrite Test strip Ql (U)Ord ered By: Amina Fagna on 10-26-2024 Nitrite Ql (U) Nitrite [Presence] i n Urine by Test strip Negative [facility] No Panel InformationOrdered By: Teresa Lynch on 10-26-2024 Estimated GFR (CKD-EPI) 30.940 mL/Min [facility] Creatinine Clearance (Chem N/A [facility] 30.940 mL/Min [facility] N/A [facility] Nucleated erythrocytes [Pres ence] in Blood by Automated countOrdered By: Maurice Francis on 10-26-2024 Nucleated RBC Auto Ql (Bld) Nucleated erythrocytes [Presence] in Blood by Automated count 0-0.5 [facility] PSA Screen (Yearly Only)on 0 10-26-2024 PSA Screen (Yearly Only) 1.160 ng/mL Normal 0.000-4.00 0 [facility] Comment on above: Result Comment: Seri al tumor marker results determined by assays using different manufacturers or methods may not be comparable. [facility] cloud administrator and method: fuseSPORT DXI, CHEMILUMINESCENT IMMUNOASSAY.PERFORMED BY:[place] [address] [place], [place] [phone] MEDICAL DIRECTORBREANNE RUTHERFORD M.D. Performed By: #### L DLD, MG, URIC, TSH3, [id number], PSAS, LIPID ####[address] [address] [facility] Parathyrin.intact [Mass/volu me] in Serum or PlasmaOrdered By: Amina Fagan on 10-26-2024 Parathyrin.intact [Mass/Vol] Parathyrin.intact [Mass/volume] in Serum or Plasma [facility] Parathyroid Hormone Intacton 10-26-2024 Parathyroid Hormone Intact 87.9 pg/mL Normal - [facility] Comment on above: Result Comment: PERF ORMED BY:[place] [address] [place], [place] [phone] MEDICAL DIRECTORBREANNE RUTHERFORD M.D. Performed By: #### F ER, [id number], URIC, PTH, FE and TIBC ####[address] [address] [facility] Phosphate [Mass/volume] in S ilia or PlasmaOrdered By: Teresa Lynch on 10-26-2024 Phosphate [Mass/Vol] Phosphate [Mass/vol ume] in Serum or Plasma 2.5-4.5 [facility] Platelet adequacy [Presence] in Blood by Light microscopyOrdered By: Maurice Francis on 10-26-2024 Platelets LM Ql (Bld) Platelet adequacy [Presence] in Blood by Light microscopy Normal [facility] Platelet mean volume Auto (B ld) [Entitic vol]Ordered By: Maurice Francis on 10-26-2024 Platelet mean volume (Bld) [Entitic vol] Platelet mean volume [Entitic volume] in Blood by Automated count 6.6-10.1 [facility] Platelet morphology finding [Identifier] in BloodOrdered By: Maurice Francis on 10-26-2024 Platelet morphology finding Nom (Bld) Platelet morphology finding [Identifier] in Blood [facility] Platelets Auto (Bld) [#/Vol] Ordered By: Maurice Francis on 10-26-2024 Platelets (Bld) [#/Vol] Platelets [#/volume] in Blood by Automated count 150-450 [facility] Platelets Large [Presence] i n Blood by Light microscopyOrdered By: Maurice Francis on 10-26-2024 Platelets Large LM Ql (Bld) Platelets Large [Presence] in Blood by Light microscopy [facility] Polychromasia [Presence] in Blood by Light microscopyOrdered By: Maurice Francis on 10-26-2024 Polychromasia LM Ql (Bld) Polychromasia [Presence] in Blood by Light microscopy [facility] Potassium [Moles/volume] in Serum or PlasmaOrdered By: Teresa Lynch on 10-26-2024 Potassium [Moles/Vol] Potassium [Moles/v olume] in Serum or Plasma 3.5-5.1 [facility] Prostate specific Ag [Mass/v olume] in Serum or PlasmaOrdered By: Teresa Lynch on 10-26-2024 Prostate specific Ag [Mass/Vol] Prostate specific Ag [Mass/volume] in Serum or Plasma 0.000-4.00 0 [facility] Comment on above: Serial tumor marker results determined by assays using different manufacturers or methods may not be comparable.[facility] cloud administrator and method:LEOBARDO NitroSellEL DXI, CHEMILUMINESCENT IMMUNOASSAY. Protein Creat Ratio Ur Rando mon 10-26-2024 Creatinine, Urine (Random) 62.00 mg/dL Normal [facility] Comment on above: Result Comment: No r eference range established Performed By: #### P ROCHERMANN, UA ####[id number] [place] [address] [facility] Protein (U) [Mass/Vol] 12 mg/dL High 0-9 Th e [facility] Comment on above: Performed By: #### P ROCHERMANN, UA ####[address] [address] [facility] Urine Protein/Creatinine Ratio 194 mg/g{Cre} Normal 0-200 [facility] Comment on above: Result Comment: PERF ORMED BY:[address] [place], [place] [phone] MEDICAL DIRECTORBREANNE RUTHERFORD M.D. Performed By: #### P ROCHERMANN, UA ####[address] [address] [facility] Protein Test strip (U) [Mass /Vol]Ordered By: Amina Fagan on 10-26-2024 Protein (U) [Mass/Vol] Protein [Mass/vol ume] in Urine by Test strip Negative [facility] Protein [Mass/volume] in Ser um or PlasmaOrdered By: Teresa Lynch on 10-26-2024 Protein [Mass/Vol] Protein [Mass/volume ] in Serum or Plasma 6.4-8.9 [facility] Protein [Mass/volume] in Uri neOrdered By: Amina Fagan on 10-26-2024 Protein (U) [Mass/Vol] Protein [Mass/vol ume] in Urine High 0-9 [facility] RBC Auto (Bld) [#/Vol]Ordere d By: Maurice Francis on 10-26-2024 RBC (Bld) [#/Vol] Erythrocytes [#/volu me] in Blood by Automated count 3.90-5.60 [facility] Renal Function Panelon 10-26 Phosphate [Mass/Vol] 3.9 mg/dL Normal 2.5-4.5 [facility] Comment on above: Result Comment: PERF ORMED BY:[place] [address] [place], [place] [phone] MEDICAL DIRECTORBREANNE RUTHERFORD M.D. Performed By: #### C MP, RENAL ####[address] Scan and CBCon 10-26-2024 Anisocytosis Ql (Bld) Marked Normal [facility] Comment on above: Performed By: #### S CAN CBC ####[address] Basophils (Bld) [#/Vol] 0.1 10*3/uL Normal 0.0-0.2 [facility] Comment on above: Performed By: #### S CAN CBC ####[address] Basophils/100 WBC (Bld) 1.1 % Normal . [facility] Comment on above: Performed By: #### S CAN CBC ####[address] Eosinophils (Bld) [#/Vol] 0.3 10*3/uL Normal 0.0-0.45 [facility] Comment on above: Performed By: #### S CAN CBC ####[address] Eosinophils/100 WBC (Bld) 3.5 % Normal . [facility] Comment on above: Performed By: #### S CAN CBC ####[address] Erythrocyte distribution width (RBC) [Ratio] 21.5 % High 12.0-14.8 [facility] Comment on above: Performed By: #### S CAN CBC ####[address] Hematocrit (Bld) [Volume fraction] 42.7 % Normal 38.8-50.0 [facility] Comment on above: Performed By: #### S CAN CBC ####[address] Hemoglobin (Bld) [Mass/Vol] 14.3 g/dL Normal 13.0-17.0 [facility] Comment on above: Performed By: #### S CAN CBC ####[place] [id number] [facility] Large Platelets Slight Normal [facility] Comment on above: Result Comment: PERF ORMED BY:[address] [place], [place] [phone] MEDICAL DIRECTORBREANNE RUTHERFORD M.D. Performed By: #### S CAN CBC ####[address] Lymphocytes (Bld) [#/Vol] 1.6 10*3/uL Normal 1.00-4.8 [facility] Comment on above: Performed By: #### S CAN CBC ####[address] Lymphocytes/100 WBC (Bld) 17.7 % Normal . [facility] Comment on above: Performed By: #### S CAN CBC ####[address] MCH (RBC) [Entitic mass] 25.9 pg Low 27.5-35.2 [facility] Comment on above: Performed By: #### S CAN CBC ####[address] MCV (RBC) [Entitic vol] 77.1 fL Low 83.5-101 [facility] Comment on above: Performed By: #### S CAN CBC ####[place] [id number] [facility] Mean Corpuscular HGB Conc 33.6 g/dL Normal 32.5-35.6 [facility] Comment on above: Performed By: #### S CAN CBC ####[address] Microcytosis Slight Normal [facility] Comment on above: Performed By: #### S CAN CBC ####[place] [id number] [facility] Monocytes (Bld) [#/Vol] 0.8 10*3/uL Normal 0.0-0.8 [facility] Comment on above: Performed By: #### S CAN CBC ####[address] Monocytes/100 WBC (Bld) 9.2 % Normal . [facility] Comment on above: Performed By: #### S CAN CBC ####[address] Neutrophils (Bld) [#/Vol] 6.0 10*3/uL Normal 1.8-7.7 [facility] Comment on above: Performed By: #### S CAN CBC ####[address] Neutrophils/100 WBC (Bld) 68.5 % Normal . [facility] Comment on above: Performed By: #### S CAN CBC ####[address] NRBC% 0.1 /100{WBC} Normal 0-0.5 [facility] Comment on above: Performed By: #### S CAN CBC ####[address] Platelet Estimate Normal Normal Normal [facility] Comment on above: Performed By: #### S CAN CBC ####[address] Platelet mean volume (Bld) [Entitic vol] 9.5 fL Normal 6.6-10.1 [facility] Comment on above: Performed By: #### S CAN CBC ####[address] Platelets (Bld) [#/Vol] 167 10*3/uL Normal 150-450 [facility] Comment on above: Performed By: #### S CAN CBC ####[address] Polychromasia Slight Normal [facility] Comment on above: Performed By: #### S CAN CBC ####[facility] [id number] [place] [address] [facility] RBC (Bld) [#/Vol] 5.54 10*6/uL Normal 3.90-5.60 [facility] Comment on above: Performed By: #### S CAN CBC ####[id number] [facility] WBC (Bld) [#/Vol] 8.8 10*3/uL Normal 4.1-10.5 [facility] Comment on above: Performed By: #### S CAN CBC ####[place] [id number] Serum or plasma albumin/glob ulin mass ratioOrdered By: Teresa Lynch on 10-26-2024 Albumin/Globulin [Mass ratio] Serum or plasma albumin/globulin mass ratio [facility] Serum or plasma anion gap de terminationOrdered By: Teresa Lynch on 10-26-2024 Anion gap [Moles/Vol] Serum or plasma an ion gap determination High 6.0-15.0 [facility] Serum or plasma iron binding capacity measurement (mass/volume)Ordered By: Amina Fagan on 10-26-2024 Iron binding capacity [Mass/Vol] Iron binding capacity [Mass/volume] in Serum or Plasma 255-450 [facility] Serum or plasma iron saturat ion measurement (mass fraction)Ordered By: Amina Fagan on 10-26-2024 Iron saturation [Mass fraction] Iron saturation [Mass Fraction] in Serum or Plasma Low 20-50 [facility] Serum or plasma total choles terol/high density lipoprotein (HDL) cholesterol mass ratOrdered By: Teresa Lynch on 10-26-2024 Cholesterol.total/Chol esterol in HDL [Mass ratio] Serum or plasma total cholesterol/high density lipoprotein (HDL) cholesterol mass rat <5.0 [facility] Sodium [Moles/volume] in Ser um or PlasmaOrdered By: Teresa Lynch on 10-26-2024 Sodium [Moles/Vol] Sodium [Moles/volume ] in Serum or Plasma 136-145 [facility] Specific gravity Test strip (U) [Rel density]Ordered By: Amina Fagan on 10-26-2024 Specific gravity (U) [Rel density] Specific gravity of Urine by Test strip 1.001-1.03 0 [facility] Thyroid Stimulating Hormoneo n 10-26-2024 TSH Qn 3.68 m[IU]/L Normal 0.45-5.33 [facility] Comment on above: Performed By: #### L DLD, MG, URIC, TSH3, [id number], PSAS, LIPID ####[facility] [id number] [place] [address] [facility] Thyrotropin [Units/volume] i n Serum or PlasmaOrdered By: Teresa Lynch on 10-26-2024 TSH Qn Thyrotropin [Units/volume] in Serum or Plasma 0.45-5.33 [facility] Transferrin [Mass/volume] in Serum or PlasmaOrdered By: Amina Fagan on 10-26-2024 Transferrin [Mass/Vol] Transferrin [Mass /volume] in Serum or Plasma 203-362 [facility] Triglyceride [Mass/volume] i n Serum or PlasmaOrdered By: Teresa Lynch on 10-26-2024 Triglyceride [Mass/Vol] Triglyceride [Mass/volume] in Serum or Plasma High 0-149 [facility] Comment on above: [...] Urate [Mass/volume] in Serum or PlasmaOrdered By: Amina Fagan on 10-26-2024 Urate [Mass/Vol] Urate [Mass/volume] in Serum or Plasma High 4.4-7.6 [facility] Urea nitrogen [Mass/volume] in Serum or PlasmaOrdered By: Teresa Lynch on 10-26-2024 Urea nitrogen [Mass/Vol] Urea nitrogen [Mass/volume] in Serum or Plasma High 7-25 [facility] Uric Acidon 10-26-2024 Urate [Mass/Vol] 10.5 mg/dL High 4.4-7.6 [facility] Comment on above: Performed By: #### F ER, [id number], URIC, PTH, FE and TIBC ####[address] [address] [facility] Urate [Mass/Vol] 10.5 mg/dL High 4.4-7.6 [facility] Comment on above: Performed By: #### L DLD, MG, URIC, TSH3, [id number], PSAS, LIPID ####[address] [address] [facility] Urinalysison 10-26-2024 Appearance (U) Clear Normal Clear [facility] Comment on above: Order Comment: Name Collection Type:: Clean-Voided Midstream Performed By: #### P ROCRERAT, UA ####[address] [address] [facility] Bilirubin,Urine Negative Normal Negative [facility] Comment on above: Order Comment: Name Collection Type:: Clean-Voided Midstream Performed By: #### P ROCRERAT, UA ####[address] [address] [facility] Color (U) Light-Yellow Normal Yellow [facility] Comment on above: Order Comment: Name Collection Type:: Clean-Voided Midstream Performed By: #### P ROCRERAT, UA ####[address] [address] [facility] Glucose Ql (U) >= High Normal [facility] Comment on above: Order Comment: Name Collection Type:: Clean-Voided Midstream Performed By: #### P ROCRERAT, UA ####[address] [address] [facility] Ketones Ql (U) Negative Normal Negative [facility] Comment on above: Order Comment: Name Collection Type:: Clean-Voided Midstream Performed By: #### P ROCRERAT, UA ####[address] [address] [facility] Leukocyte esterase Test strip Ql (U) Negative Normal Negative [facility] Comment on above: Order Comment: Name Collection Type:: Clean-Voided Midstream Performed By: #### P ROCRERAT, UA ####[address] [address] [facility] Nitrite,Urine Negative Normal Negative [facility] Comment on above: Order Comment: Name Collection Type:: Clean-Voided Midstream Performed By: #### P ROCRERAT, UA ####[address] [address] [facility] Occult Blood,Urine Negative Normal Negative [facility] Comment on above: Order Comment: Name Collection Type:: Clean-Voided Midstream Result Comment: PERF ORMED BY:[address] [place], [place] [phone] MEDICAL MARY RUTHERFORD M.D. Performed By: #### P ROCRERAT, UA ####[address] [address] [facility] pH (U) 5.5 [pH] Normal 5.0-9.0 [facility] Comment on above: Order Comment: Name Collection Type:: Clean-Voided Midstream Performed By: #### P ROCRERAT, UA ####[address] [address] [facility] Protein,Urine Negative Normal Negative [facility] Comment on above: Order Comment: Name Collection Type:: Clean-Voided Midstream Performed By: #### P ROCRERAT, UA ####[address] [address] [facility] Specificy [place],Urine 1.020 Normal 1.001-1.03 0 [facility] Comment on above: Order Comment: Name Collection Type:: Clean-Voided Midstream Performed By: #### P ROCRERAT, UA ####[address] [address] [facility] Urobilinogen,Urine Normal Normal Normal [facility] Comment on above: Order Comment: Name Collection Type:: Clean-Voided Midstream Performed By: #### P ROCRERAT, UA ####[address] [address] [facility] Urine protein/creatinine rat ioOrdered By: Amina Fagan on 10-26-2024 Protein/Creatinine (U) [Ratio] Urine protein/creatinine ratio 0-200 [facility] Urobilinogen Test strip (U) [Mass/Vol]Ordered By: Amina Fagan on 10-26-2024 Urobilinogen (U) [Mass/Vol] Urobilinogen [Mass/volume] in Urine by Test strip Normal [facility] Vit. B12/Folate Profileon Cobalamin (Vitamin B12) [Mass/Vol] 195 pg/mL Normal 180-914 [facility] Comment on above: Performed By: #### F ER, [id number], URIC, PTH, FE and TIBC ####[address] [address] [facility] Folate 10.1 ng/mL Normal >5.9 [facility] Comment on above: Result Comment: Aure te reference range: >5.9 ng/ml The WHO technical consultation on folate and vitamin b12 deficiencies has determined that folate concentrations less than 4 ng/ml are considered deficient.PERFORMED BY:[address] [place], [place] [phone] MEDICAL MARY RUTHERFORD M.D. Performed By: #### F ER, [id number], URIC, PTH, FE and TIBC ####[address] [address] [facility] Vitamin B12 ser/plasOrdered By: Amina Fagan on 10-26-2024 Cobalamin (Vitamin B12) [Mass/Vol] Vitamin B12 ser/plas 180-914 [facility] Vitamin D 25 Hydroxy Totalon 10-26-2024 Vitamin D 25 Hydroxy Total 17.0 ng/mL Low 30-100 [facility] Comment on above: Result Comment: SUBHA MIN D STATUS 25(OH)VITAMIN D RANGE (ng/mL) Deficient <20 Insufficient 20 to <30 Sufficient 30 to 100 Reference: Ibrahima Reyes, Kasey LONG, et al. Evaluation,treatment, and prevention of vitamin D deficiency; an Endocrine Society clinical practice guideline. JCEM. 2010; 96(7):1911-.PERFORMED BY:[facility] [place], [place] [phone] MEDICAL DIRECTORBREANNE RUTHERFORD M.D. Performed By: #### L DLD, MG, URIC, TSH3, [id number], PSAS, LIPID ####[facility] [place] [address] [facility] Vitamin D+Metabolites [Mass/ volume] in Serum or PlasmaOrdered By: Teresa Lynch on 10-26-2024 Vitamin D+Metabolites [Mass/Vol] Vitamin D+Metabolites [Mass/volume] in Serum or Plasma Low 30-100 [facility] Comment on above: VITAMIN D STATUS 25( [place])VITAMIN D RANGE (ng/mL) Deficient <20 Insufficient 20 to <30Sufficient 30 to 100Reference: Ibrahima Reyes, Kasey LONG, et al. Evaluation,treatment, and prevention of vitamin D deficiency; an Endocrine Society clinical practice guideline. JCEM. 2010; 96(7):1911-30. WBC Auto (Bld) [#/Vol]Ordere d By: Maurice Francis on 10-26-2024 WBC (Bld) [#/Vol] Leukocytes [#/volume ] in Blood by Automated count 4.1-10.5 [facility] pH Test strip (U)Ordered By: Amina Fagan on 10-26-2024 pH (U) pH of Urine by Test strip 5.0-9.0 [facility] Anisocytosis LM Ql (Bld)Orde red By: Abdullahi Canchola on 10-11-2024 Anisocytosis Ql (Bld) Anisocytosis [Pres ence] in Blood by Light microscopy [facility] Basic Metabolic Panelon Anion gap [Moles/Vol] 15.7 mmol/L High 6.0-15.0 Th e [facility] Comment on above: Performed By: #### B MP, CK, HS TROP, FE and TIBC, LILA, MG, SCAN CBC ####[address] Calcium [Mass/Vol] 8.9 mg/dL Normal 8.6-10.3 [facility] Comment on above: Performed By: #### B MP, CK, HS TROP, FE and TIBC, LILA, MG, SCAN CBC ####[address] Chloride [Moles/Vol] 99 mmol/L Normal 98-107 [facility] Comment on above: Performed By: #### B MP, CK, HS TROP, FE and TIBC, LILA, MG, SCAN CBC ####[address] CO2 [Moles/Vol] 25.5 mmol/L Normal 21.0-31.0 [facility] Comment on above: Performed By: #### B MP, CK, HS TROP, FE and TIBC, LILA, MG, SCAN CBC ####[address] Creatinine [Mass/Vol] 2.43 mg/dL High 0.70-1.30 [facility] Comment on above: Performed By: #### B MP, CK, HS TROP, FE and TIBC, LILA, MG, SCAN CBC ####[address] Creatinine Clr Calc Pharmacy 35.93 Normal [facility] Comment on above: Performed By: #### B MP, CK, HS TROP, FE and TIBC, LILA, MG, SCAN CBC ####[address] Estimated GFR 29.874 mL/Min Normal [facility] Comment on above: Performed By: #### B MP, CK, HS TROP, FE and TIBC, LILA, MG, SCAN CBC ####[address] Glucose [Mass/Vol] 221 mg/dL High 70-100 [facility] Comment on above: Result Comment: [facility] Glucose Reference Range is dependent on time and content of last meal. Glucose of more than 200 mg/dL in a nonstressed, ambulatory subject supports the diagnosis of Diabetes Mellitus. ADA recommended reference range Performed By: #### B MP, CK, HS TROP, FE and TIBC, LILA, MG, SCAN CBC ####[facility] Potassium [Moles/Vol] 4.2 mmol/L Normal 3.5-5.1 [facility] Comment on above: Performed By: #### B MP, CK, HS TROP, FE and TIBC, LILA, MG, SCAN CBC ####[place] [address] Sodium [Moles/Vol] 136 mmol/L Normal 136-145 [facility] Comment on above: Performed By: #### B MP, CK, HS TROP, FE and TIBC, LILA, MG, SCAN CBC ####[place] [address] Urea nitrogen [Mass/Vol] 39 mg/dL High 7-25 [facility] Comment on above: Performed By: #### B MP, CK, HS TROP, FE and TIBC, LILA, MG, SCAN CBC ####[address] Basophils Auto (Bld) [#/Vol] Ordered By: Abdullahi Canchola on 10-11-2024 Basophils (Bld) [#/Vol] Automated basophil count 0.0-0.2 [facility] Basophils/100 WBC Auto (Bld) Ordered By: Abdullahi Canchola on 10-11-2024 Basophils/100 WBC (Bld) Automated basophil % . [facility] Calcium [Mass/volume] in Ser um or PlasmaOrdered By: Abdullahi Canchola on 10-11-2024 Calcium [Mass/Vol] Calcium [Mass/volume ] in Serum or Plasma 8.6-10.3 [facility] Carbon dioxide, total [Moles /volume] in Serum or PlasmaOrdered By: Abdullahi Canchola on 10-11-2024 CO2 [Moles/Vol] Carbon dioxide, tota l [Moles/volume] in Serum or Plasma 21.0-31.0 [facility] Chloride [Moles/volume] in S ilia or PlasmaOrdered By: Abdullahi Canchola on 10-11-2024 Chloride [Moles/Vol] Chloride [Moles/vol ume] in Serum or Plasma 98-107 [facility] Creatine Kinaseon 10-11-2024 CK [Catalytic activity/Vol] 91 U/L Normal 30-223 [facility] Comment on above: Performed By: #### B MP, CK, HS TROP, FE and TIBC, LILA, MG, SCAN CBC ####[facility] [id number] Creatine kinase [Enzymatic a ctivity/volume] in Serum or PlasmaOrdered By: Abdullahi Canchola on 10-11-2024 CK [Catalytic activity/Vol] Creatine kinase [Enzymatic activity/volume] in Serum or Plasma 30-223 [facility] Creatinine [Mass/volume] in Serum or PlasmaOrdered By: Abdullahi Canchola on 10-11-2024 Creatinine [Mass/Vol] Creatinine [Mass/v olume] in Serum or Plasma High 0.70-1.30 [facility] ECH echo transthoracicon ECH echo transthoracic Normal [facility] Eosinophils Auto (Bld) [#/Vo l]Ordered By: Abdullahi Canchola on 10-11-2024 Eosinophils (Bld) [#/Vol] Automated eosinophil count 0.0-0.45 [facility] Eosinophils/100 WBC Auto (Bl d)Ordered By: Abdullahi Canchola on 10-11-2024 Eosinophils/100 WBC (Bld) Automated eosinophil % . [facility] Erythrocyte distribution wid th Auto (RBC) [Ratio]Ordered By: Abdullahi Canchola on 10-11-2024 Erythrocyte distribution width (RBC) [Ratio] Erythrocyte distribution width [Ratio] by Automated count High 12.0-14.8 [facility] Erythrocyte morphology findi ng [Identifier] in BloodOrdered By: Abdullahi Canchola on 10-11-2024 RBC morphology finding Nom (Bld) RBC morphology [facility] Ferritinon 10-11-2024 Ferritin [Mass/Vol] 8.2 ng/mL Low 23.9-336.2 [facility] Comment on above: Result Comment: PERF ORMED BY:[place] [address] [address] [place], [place] [id number] MEDICAL DIRECTORMIKE CABAN M.D. Performed By: #### B MP, CK, HS TROP, FE and TIBC, LILA, MG, SCAN CBC ####[facility] [id number] [place] [address] [facility] Ferritin [Mass/volume] in Se rum or PlasmaOrdered By: Abdullahi Canchola on 10-11-2024 Ferritin [Mass/Vol] Ferritin [Mass/volum e] in Serum or Plasma Low 23.9-336.2 [facility] Glucose Glucometer (BldC) [M ass/Vol]Ordered By: Abdullahi Canchola on 10-11-2024 Glucose [Mass/Vol] Capillary blood gluc ose measurement by glucometer (mass/volume) [facility] Comment on above: Random Glucose Refer ence Range is dependent on time and content of last meal. Glucose of more than 200 mg/dL in a nonstressed, ambulatory subject supports the diagnosis of Diabetes Mellitus. Glucose Poct Glucometerson 0 10-11-2024 Commemt1 Glu2: Cleaned Meter Normal [facility] Comment on above: Result Comment: PERF ORMED BY:[place] [address] [address] [place], [place] [phone] MEDICAL DIRECTORMIKE CABAN M.D. Performed By: #### G LULS ####Point of Care testing, Glucose [Mass/Vol] 194 mg/dL Normal [facility] Comment on above: Result Comment: [place] Glucose Reference Range is dependent on time and content of last meal. Glucose of more than 200 mg/dL in a nonstressed, ambulatory subject supports the diagnosis of Diabetes Mellitus. Performed By: #### G LULS ####Point of Care testing, Commemt1 Glu2: Cleaned Meter Normal [facility] Comment on above: Result Comment: PERF ORMED BY:[place] [address] [address] [place], [place] [phone] MEDICAL DIRECTORMIKE CABAN M.D. Performed By: #### G NELI ####Point of Care testing, Glucose [Mass/Vol] 229 mg/dL Normal [facility] Comment on above: Result Comment: [place] Glucose Reference Range is dependent on time and content of last meal. Glucose of more than 200 mg/dL in a nonstressed, ambulatory subject supports the diagnosis of Diabetes Mellitus. Performed By: #### G NELI ####Point of Care testing, Glucose [Mass/volume] in Ser um or PlasmaOrdered By: Abdullahi Canchola on 10-11-2024 Glucose [Mass/Vol] Glucose [Mass/volume ] in Serum or Plasma High 70-100 [facility] Comment on above: ADA recommended refe rence rangeRandom Glucose Reference Range is dependent on time and content of last meal. Glucose of more than 200 mg/dL in a nonstressed, ambulatory subject supports the diagnosis of Diabetes Mellitus. Hematocrit Auto (Bld) [Volum e fraction]Ordered By: Abdullahi Canchola on 10-11-2024 Hematocrit (Bld) [Volume fraction] Hematocrit [Volume Fraction] of Blood by Automated count 38.8-50.0 [facility] Hemoglobin [Mass/volume] in BloodOrdered By: Abdullahi Canchola on 10-11-2024 Hemoglobin (Bld) [Mass/Vol] Hemoglobin [Mass/volume] in Blood 13.0-17.0 [facility] Iron [Mass/volume] in Serum or PlasmaOrdered By: Abdlulahi Canchola on 10-11-2024 Iron [Mass/Vol] Iron [Mass/volume] i n Serum or Plasma Low 50-212 [facility] Iron and TIBC Profileon % Iron Saturation 9.1 % Low 20-50 [facility] Comment on above: Performed By: #### B MP, CK, HS TROP, FE and TIBC, LILA, MG, SCAN CBC ####[facility] [id number] [place] [address] [facility] Iron [Mass/Vol] 37 ug/dL Low 50-212 [facility] Comment on above: Performed By: #### B MP, CK, HS TROP, FE and TIBC, LILA, MG, SCAN CBC ####[facility] [id number] Total Iron Binding Capacity 407 ug/dL Normal 255-450 [facility] Comment on above: Performed By: #### B MP, CK, HS TROP, FE and TIBC, LILA, MG, SCAN CBC ####[facility] [id number] Transferrin [Mass/Vol] 291 mg/dL Normal 203-362 [facility] Comment on above: Performed By: #### B MP, CK, HS TROP, FE and TIBC, LILA, MG, SCAN CBC ####[facility] [id number] Leukocytes [#/volume] correc jorge for nucleated erythrocytes in Blood by Automated counOrdered By: Abdullahi Canchola on 10-11-2024 WBC corrected for nucl RBC Auto (Bld) [#/Vol] Leukocytes [#/volume] corrected for nucleated erythrocytes in Blood by Automated coun 4.1-10.5 [facility] Lymphocytes Auto (Bld) [#/Vo l]Ordered By: Abdullahi Canchola on 10-11-2024 Lymphocytes (Bld) [#/Vol] Lymphocytes [#/volume] in Blood by Automated count 1.00-4.8 [facility] Lymphocytes/100 WBC Auto (Bl d)Ordered By: Abdullahi Canchola on 10-11-2024 Lymphocytes/100 WBC (Bld) Lymphocytes/100 leukocytes in Blood by Automated count . [facility] MCH Auto (RBC) [Entitic mass ]Ordered By: Abdullahi Canchola on 10-11-2024 MCH (RBC) [Entitic mass] MCH [Entitic mass] by Automated count Low 27.5-35.2 [facility] MCHC Auto (RBC) [Mass/Vol]Or dered By: Abdullahi Canchola on 10-11-2024 MCHC (RBC) [Mass/Vol] MCHC [Mass/volume] by Automated count 32.5-35.6 [facility] MCV Auto (RBC) [Entitic vol] Ordered By: Abdullahi Canchola on 10-11-2024 MCV (RBC) [Entitic vol] MCV [Entitic volume] by Automated count Low 83.5-101 [facility] Magnesiumon 10-11-2024 Magnesium [Mass/Vol] 1.8 mg/dL Low 1.9-2.7 [facility] Comment on above: Performed By: #### B MP, CK, HS TROP, FE and TIBC, LILA, MG, SCAN CBC ####[facility] [id number] [place] [id number] [facility] Magnesium [Mass/volume] in S ilia or PlasmaOrdered By: Abdullahi Canchola on 10-11-2024 Magnesium [Mass/Vol] Magnesium [Mass/vol ume] in Serum or Plasma Low 1.9-2.7 [facility] Microcytes LM Ql (Bld)Ordere d By: Abdullahi Canchola on 10-11-2024 Microcytes Ql (Bld) Microcytes [Presence ] in Blood by Light microscopy [facility] Monocytes Auto (Bld) [#/Vol] Ordered By: Abdullahi Canchola on 10-11-2024 Monocytes (Bld) [#/Vol] Automated blood monocyte count High 0.0-0.8 [facility] Monocytes/100 WBC Auto (Bld) Ordered By: Abdullahi Canchola on 10-11-2024 Monocytes/100 WBC (Bld) Automated monocyte % . [facility] Neutrophils Auto (Bld) [#/Vo l]Ordered By: Abdullahi Canchola on 10-11-2024 Neutrophils (Bld) [#/Vol] Neutrophils [#/volume] in Blood by Automated count 1.8-7.7 [facility] Neutrophils/100 WBC Auto (Bl d)Ordered By: Abdullahi Canchola on 10-11-2024 Neutrophils/100 WBC (Bld) Automated neutrophil % . [facility] No Panel InformationOrdered By: Abdullahi Canchola on 10-11-2024 Bedside Glucose Comment Glu2: cleaned meter [facility] Glu2: cleaned meter [facility] Estimated GFR (CKD-EPI) 29.874 mL/Min [facility] Creatinine Clearance (Chem 35.93 [facility] 29.874 mL/Min [facility] 35.93 [facility] Nucleated erythrocytes [Pres ence] in Blood by Automated countOrdered By: Abdullahi Canchola on 10-11-2024 Nucleated RBC Auto Ql (Bld) Nucleated erythrocytes [Presence] in Blood by Automated count 0-0.5 [facility] Ovalocytes [Presence] in Blo od by Light microscopyOrdered By: Abdullahi Canchola on 10-11-2024 Ovalocytes LM Ql (Bld) Ovalocyte detection [facility] Platelet adequacy [Presence] in Blood by Light microscopyOrdered By: Abdullahi Canchola on 10-11-2024 Platelets LM Ql (Bld) Platelet adequacy [Presence] in Blood by Light microscopy Normal [facility] Platelet mean volume Auto (B ld) [Entitic vol]Ordered By: Abdullahi Canchola on 10-11-2024 Platelet mean volume (Bld) [Entitic vol] Platelet mean volume [Entitic volume] in Blood by Automated count 6.6-10.1 [facility] Platelet morphology finding [Identifier] in BloodOrdered By: Abdullahi Canchola on 10-11-2024 Platelet morphology finding Nom (Bld) Platelet morphology finding [Identifier] in Blood [facility] Platelets Auto (Bld) [#/Vol] Ordered By: Abdullahi Canchola on 10-11-2024 Platelets (Bld) [#/Vol] Platelets [#/volume] in Blood by Automated count 150-450 [facility] Platelets Large [Presence] i n Blood by Light microscopyOrdered By: Abdullahi Canchola on 10-11-2024 Platelets Large LM Ql (Bld) Platelets Large [Presence] in Blood by Light microscopy [facility] Poikilocytosis [Presence] in Blood by Light microscopyOrdered By: Abdullahi Canchola on 10-11-2024 Poikilocytosis LM Ql (Bld) Poikilocytosis [Presence] in Blood by Light microscopy [facility] Polychromasia [Presence] in Blood by Light microscopyOrdered By: Abdullahi Canchola on 10-11-2024 Polychromasia LM Ql (Bld) Polychromasia [Presence] in Blood by Light microscopy [facility] Potassium [Moles/volume] in Serum or PlasmaOrdered By: Abdullahi Canchola on 10-11-2024 Potassium [Moles/Vol] Potassium [Moles/v olume] in Serum or Plasma 3.5-5.1 [facility] RBC Auto (Bld) [#/Vol]Ordere d By: Abdullahi Canchola on 10-11-2024 RBC (Bld) [#/Vol] Erythrocytes [#/volu me] in Blood by Automated count 3.90-5.60 [facility] Scan and CBCon 10-11-2024 Anisocytosis Ql (Bld) Marked Normal [facility] Comment on above: Performed By: #### B MP, CK, HS TROP, FE and TIBC, LILA, MG, SCAN CBC ####[address] Basophils (Bld) [#/Vol] 0.1 10*3/uL Normal 0.0-0.2 [facility] Comment on above: Performed By: #### B MP, CK, HS TROP, FE and TIBC, LILA, MG, SCAN CBC ####[address] Basophils/100 WBC (Bld) 1.3 % Normal . [facility] Comment on above: Performed By: #### B MP, CK, HS TROP, FE and TIBC, LILA, MG, SCAN CBC ####[address] Eosinophils (Bld) [#/Vol] 0.3 10*3/uL Normal 0.0-0.45 [facility] Comment on above: Performed By: #### B MP, CK, HS TROP, FE and TIBC, LILA, MG, SCAN CBC ####[address] Eosinophils/100 WBC (Bld) 4.0 % Normal . [facility] Comment on above: Performed By: #### B MP, CK, HS TROP, FE and TIBC, LILA, MG, SCAN CBC ####[address] Erythrocyte distribution width (RBC) [Ratio] 23.3 % High 12.0-14.8 [facility] Comment on above: Performed By: #### B MP, CK, HS TROP, FE and TIBC, LILA, MG, SCAN CBC ####[address] Hematocrit (Bld) [Volume fraction] 38.9 % Normal 38.8-50.0 [facility] Comment on above: Performed By: #### B MP, CK, HS TROP, FE and TIBC, LILA, MG, SCAN CBC ####[address] Hemoglobin (Bld) [Mass/Vol] 13.1 g/dL Normal 13.0-17.0 [facility] Comment on above: Performed By: #### B MP, CK, HS TROP, FE and TIBC, LILA, MG, SCAN CBC ####[address] Large Platelets Slight Normal [facility] Comment on above: Result Comment: PERF ORMED BY:[address] [place], [place] [phone] MEDICAL DIRECTORMIKE CABAN M.D. Performed By: #### B MP, CK, HS TROP, FE and TIBC, LILA, MG, SCAN CBC ####[address] Lymphocytes (Bld) [#/Vol] 2.0 10*3/uL Normal 1.00-4.8 [facility] Comment on above: Performed By: #### B MP, CK, HS TROP, FE and TIBC, LILA, MG, SCAN CBC ####[address] Lymphocytes/100 WBC (Bld) 25.5 % Normal . [facility] Comment on above: Performed By: #### B MP, CK, HS TROP, FE and TIBC, LILA, MG, SCAN CBC ####[address] MCH (RBC) [Entitic mass] 25.7 pg Low 27.5-35.2 [facility] Comment on above: Performed By: #### B MP, CK, HS TROP, FE and TIBC, LILA, MG, SCAN CBC ####[address] MCV (RBC) [Entitic vol] 76.5 fL Low 83.5-101 [facility] Comment on above: Performed By: #### B MP, CK, HS TROP, FE and TIBC, LILA, MG, SCAN CBC ####[address] Mean Corpuscular HGB Conc 33.6 g/dL Normal 32.5-35.6 [facility] Comment on above: Performed By: #### B MP, CK, HS TROP, FE and TIBC, LILA, MG, SCAN CBC ####[address] Microcytosis Moderate Normal [facility] Comment on above: Performed By: #### B MP, CK, HS TROP, FE and TIBC, LILA, MG, SCAN CBC ####[address] Monocytes (Bld) [#/Vol] 0.9 10*3/uL High 0.0-0.8 [facility] Comment on above: Performed By: #### B MP, CK, HS TROP, FE and TIBC, LILA, MG, SCAN CBC ####[address] Monocytes/100 WBC (Bld) 10.9 % Normal . [facility] Comment on above: Performed By: #### B MP, CK, HS TROP, FE and TIBC, LILA, MG, SCAN CBC ####[address] Neutrophils (Bld) [#/Vol] 4.6 10*3/uL Normal 1.8-7.7 [facility] Comment on above: Performed By: #### B MP, CK, HS TROP, FE and TIBC, LILA, MG, SCAN CBC ####[address] Neutrophils/100 WBC (Bld) 58.3 % Normal . [facility] Comment on above: Performed By: #### B MP, CK, HS TROP, FE and TIBC, LILA, MG, SCAN CBC ####[address] NRBC% 0.1 /100{WBC} Normal 0-0.5 [facility] Comment on above: Performed By: #### B MP, CK, HS TROP, FE and TIBC, LILA, MG, SCAN CBC ####[address] Ovalocytes Slight Normal [facility] Comment on above: Performed By: #### B MP, CK, HS TROP, FE and TIBC, LILA, MG, SCAN CBC ####[address] Platelet Estimate Normal Normal Normal [facility] Comment on above: Performed By: #### B MP, CK, HS TROP, FE and TIBC, LILA, MG, SCAN CBC ####[address] Platelet mean volume (Bld) [Entitic vol] 9.5 fL Normal 6.6-10.1 [facility] Comment on above: Performed By: #### B MP, CK, HS TROP, FE and TIBC, LILA, MG, SCAN CBC ####[address] Platelets (Bld) [#/Vol] 176 10*3/uL Normal 150-450 [facility] Comment on above: Performed By: #### B MP, CK, HS TROP, FE and TIBC, LILA, MG, SCAN CBC ####[address] Poikilocytosis Slight Normal [facility] Comment on above: Performed By: #### B MP, CK, HS TROP, FE and TIBC, LILA, MG, SCAN CBC ####[address] [place] [address] [place] Polychromasia Slight Normal [facility] Comment on above: Performed By: #### B MP, CK, HS TROP, FE and TIBC, LILA, MG, SCAN CBC ####[place] [id number] RBC (Bld) [#/Vol] 5.09 10*6/uL Normal 3.90-5.60 [facility] Comment on above: Performed By: #### B MP, CK, HS TROP, FE and TIBC, LILA, MG, SCAN CBC ####[place] [address] [place] [id number] [facility] WBC (Bld) [#/Vol] 7.9 10*3/uL Normal 4.1-10.5 [facility] Comment on above: Performed By: #### B MP, CK, HS TROP, FE and TIBC, LILA, MG, SCAN CBC ####[place] [id number] Serum or plasma anion gap de terminationOrdered By: Abdullahi Canchola on 10-11-2024 Anion gap [Moles/Vol] Serum or plasma an ion gap determination High 6.0-15.0 [facility] Serum or plasma iron binding capacity measurement (mass/volume)Ordered By: Abdullahi Canchola on 10-11-2024 Iron binding capacity [Mass/Vol] Iron binding capacity [Mass/volume] in Serum or Plasma 255-450 [facility] Serum or plasma iron saturat ion measurement (mass fraction)Ordered By: Abdullahi Canchola on 10-11-2024 Iron saturation [Mass fraction] Iron saturation [Mass Fraction] in Serum or Plasma Low 20-50 [facility] Sodium [Moles/volume] in Ser um or PlasmaOrdered By: Abdullahi Canchola on 10-11-2024 Sodium [Moles/Vol] Sodium [Moles/volume ] in Serum or Plasma 136-145 [facility] Transferrin [Mass/volume] in Serum or PlasmaOrdered By: Abdullahi Canchola on 10-11-2024 Transferrin [Mass/Vol] Transferrin [Mass /volume] in Serum or Plasma 203-362 [facility] Troponin I High Sensitivityo n 05-09-2025 Troponin I High Sensitivity 5 Normal 0-20 [facility] Comment on above: Result Comment: The Troponin units of report have been changed to meet the Chest Pain Accreditation requirement, element EC5.M1l2. Troponin units are changed from pg/ml to ng/L. Also, the decimal is removed and results are in whole numbers.PERFORMED BY:[facility] MUKULDarrianMaryPORT [place], [place] [phone] MEDICAL DIRECTORMIKE CABAN M.D. Performed By: #### B MP, CK, HS TROP, FE and TIBC, LILA, MG, SCAN CBC ####[facility] [place] [address] [facility] Troponin I.cardiac [Mass/vol ume] in Serum or Plasma by Detection limit <= 0.01 ng/Ordered By: Abdullahi Canchola on 10-11-2024 Troponin I.cardiac DL <= 0.01 ng/mL [Mass/Vol] Troponin I.cardiac [Mass/volume] in Serum or Plasma by Detection limit <= 0.01 ng/ 0-20 [facility] Comment on above: The Troponin units o f report have been changed to meet the Chest Pain Accreditation requirement, element EC5.M1l2. Troponin units are changed from pg/ml to ng/L. Also, the decimal is removed and results are in whole numbers. Urea nitrogen [Mass/volume] in Serum or PlasmaOrdered By: Abdullahi Canchola on 10-11-2024 Urea nitrogen [Mass/Vol] Urea nitrogen [Mass/volume] in Serum or Plasma High 7-25 [facility] WBC Auto (Bld) [#/Vol]Ordere d By: Abdullahi Canchola on 10-11-2024 WBC (Bld) [#/Vol] Leukocytes [#/volume ] in Blood by Automated count 4.1-10.5 [facility] Anisocytosis LM Ql (Bld)Orde red By: Jez Dominguez on 10-10-2024 Anisocytosis Ql (Bld) Anisocytosis [Pres ence] in Blood by Light microscopy [facility] B-Type Natriuretic Peptideon 10-10-2024 Natriuretic peptide B (Bld) [Mass/Vol] 17.0 pg/mL Normal 5-100 [facility] Comment on above: Result Comment: PERF ORMED BY:[address] [place], [place] [id number] MEDICAL DIRECTORMIKE CABAN M.D. Performed By: #### H S TROP, BNP, PT, BMP, SCAN CBC, CK ####[place] [id number] [facility] Basic Metabolic Panelon 05-0 Anion gap [Moles/Vol] 15.5 mmol/L High 6.0-15.0 [facility] Comment on above: Performed By: #### H S TROP, BNP, PT, BMP, SCAN CBC, CK ####[place] [id number] [facility] Calcium [Mass/Vol] 9.7 mg/dL Normal 8.6-10.3 [facility] Comment on above: Performed By: #### H S TROP, BNP, PT, BMP, SCAN CBC, CK ####[place] [id number] [facility] Chloride [Moles/Vol] 98 mmol/L Normal 98-107 [facility] Comment on above: Performed By: #### H S TROP, BNP, PT, BMP, SCAN CBC, CK ####[place] [id number] [facility] CO2 [Moles/Vol] 25.6 mmol/L Normal 21.0-31.0 [facility] Comment on above: Performed By: #### H S TROP, BNP, PT, BMP, SCAN CBC, CK ####[place] [id number] [facility] Creatinine [Mass/Vol] 2.51 mg/dL High 0.70-1.30 [facility] Comment on above: Performed By: #### H S TROP, BNP, PT, BMP, SCAN CBC, CK ####[place] [id number] [facility] Creatinine Clr Calc Pharmacy 34.78 Normal [facility] Comment on above: Result Comment: PERF ORMED BY:[address] [place], [place] [phone] MEDICAL DIRECTORMIKE CABAN M.D. Performed By: #### H S TROP, BNP, PT, BMP, SCAN CBC, CK ####[place] [address] [place] [address] [facility] Estimated GFR 28.735 mL/Min Normal [facility] Comment on above: Performed By: #### H S TROP, BNP, PT, BMP, SCAN CBC, CK ####[place] [address] [place] [address] [facility] Glucose [Mass/Vol] 278 mg/dL High 70-100 [facility] Comment on above: Result Comment: [facility] Glucose Reference Range is dependent on time and content of last meal. Glucose of more than 200 mg/dL in a nonstressed, ambulatory subject supports the diagnosis of Diabetes Mellitus. ADA recommended reference range Performed By: #### H S TROP, BNP, PT, BMP, SCAN CBC, CK ####[place] [address] [place] [address] [facility] Potassium [Moles/Vol] 4.1 mmol/L Normal 3.5-5.1 [facility] Comment on above: Performed By: #### H S TROP, BNP, PT, BMP, SCAN CBC, CK ####[place] [address] [place] [address] [facility] Sodium [Moles/Vol] 135 mmol/L Low 136-145 [facility] Comment on above: Performed By: #### H S TROP, BNP, PT, BMP, SCAN CBC, CK ####[place] [address] [place] [address] [facility] Urea nitrogen [Mass/Vol] 41 mg/dL High 7-25 [facility] Comment on above: Performed By: #### H S TROP, BNP, PT, BMP, SCAN CBC, CK ####[facility] [place] [address] [facility] Basophils Auto (Bld) [#/Vol] Ordered By: Jez Dominguez on 10-10-2024 Basophils (Bld) [#/Vol] Automated basophil count 0.0-0.2 [facility] Basophils/100 WBC Auto (Bld) Ordered By: Jez Dominguez on 10-10-2024 Basophils/100 WBC (Bld) Automated basophil % . [facility] Calcium [Mass/volume] in Ser um or PlasmaOrdered By: Jez Dominguez on 10-10-2024 Calcium [Mass/Vol] Calcium [Mass/volume ] in Serum or Plasma 8.6-10.3 [facility] Carbon dioxide, total [Moles /volume] in Serum or PlasmaOrdered By: Jez Dominguez on 10-10-2024 CO2 [Moles/Vol] Carbon dioxide, tota l [Moles/volume] in Serum or Plasma 21.0-31.0 [facility] Chloride [Moles/volume] in S ilia or PlasmaOrdered By: Jez Dominguez on 10-10-2024 Chloride [Moles/Vol] Chloride [Moles/vol ume] in Serum or Plasma 98-107 [facility] Creatine Kinaseon 10-10-2024 CK [Catalytic activity/Vol] 101 U/L Normal 30-223 [facility] Comment on above: Performed By: #### H S TROP, CK ####[facility] [id number] CK [Catalytic activity/Vol] 126 U/L Normal 30-223 [facility] Comment on above: Performed By: #### H S TROP, BNP, PT, BMP, SCAN CBC, CK ####[facility] [id number] [address] Creatine kinase [Enzymatic a ctivity/volume] in Serum or PlasmaOrdered By: Jez Dominguez on 10-10-2024 CK [Catalytic activity/Vol] Creatine kinase [Enzymatic activity/volume] in Serum or Plasma 30-223 [facility] Creatinine [Mass/volume] in Serum or PlasmaOrdered By: Jez Dominguez on 10-10-2024 Creatinine [Mass/Vol] Creatinine [Mass/v olume] in Serum or Plasma High 0.70-1.30 [facility] ECG 12 lead ECGon 10-10-2024 ECG 12 lead ECG Normal [facility] ECG 12 lead ECG Normal [facility] ECG 12 lead ECG Normal [facility] Eosinophils Auto (Bld) [#/Vo l]Ordered By: Jez Dominguez on 10-10-2024 Eosinophils (Bld) [#/Vol] Automated eosinophil count 0.0-0.45 [facility] Eosinophils/100 WBC Auto (Bl d)Ordered By: Jez Dominguez on 10-10-2024 Eosinophils/100 WBC (Bld) Automated eosinophil % . [facility] Erythrocyte distribution wid th Auto (RBC) [Ratio]Ordered By: Jez Dominguez on 10-10-2024 Erythrocyte distribution width (RBC) [Ratio] Erythrocyte distribution width [Ratio] by Automated count High 12.0-14.8 [facility] Erythrocyte morphology findi ng [Identifier] in BloodOrdered By: Jez Dominguez on 10-10-2024 RBC morphology finding Nom (Bld) RBC morphology [facility] Glucose Poct Glucometerson 0 10-10-2024 Glucose [Mass/Vol] 204 mg/dL Normal [facility] Comment on above: Result Comment: [place] Glucose Reference Range is dependent on time and content of last meal. Glucose of more than 200 mg/dL in a nonstressed, ambulatory subject supports the diagnosis of Diabetes Mellitus.PERFORMED BY:[place] [address] [place], [place] [id number] MEDICAL DIRECTORMIKE CABAN M.D. Performed By: #### G NELI ####Point of Care testing, Glucose [Mass/volume] in Ser um or PlasmaOrdered By: Jez Dominguez on 10-10-2024 Glucose [Mass/Vol] Glucose [Mass/volume ] in Serum or Plasma High 70-100 [facility] Comment on above: ADA recommended refe rence rangeRandom Glucose Reference Range is dependent on time and content of last meal. Glucose of more than 200 mg/dL in a nonstressed, ambulatory subject supports the diagnosis of Diabetes Mellitus. Hematocrit Auto (Bld) [Volum e fraction]Ordered By: Jez Dominguez on 10-10-2024 Hematocrit (Bld) [Volume fraction] Hematocrit [Volume Fraction] of Blood by Automated count 38.8-50.0 [facility] Hemoglobin [Mass/volume] in BloodOrdered By: Jez Dominguez on 10-10-2024 Hemoglobin (Bld) [Mass/Vol] Hemoglobin [Mass/volume] in Blood 13.0-17.0 [facility] INR in Platelet poor plasma by Coagulation assayOrdered By: Jez Dominguez on 10-10-2024 INR Coag (PPP) [Relative time] INR in Platelet poor plasma by Coagulation assay [facility] Comment on above: INR [...] erythrocytes in Blood by Automated counOrdered By: Jez Dominguez on 10-10-2024 WBC corrected for nucl RBC Auto (Bld) [#/Vol] Leukocytes [#/volume] corrected for nucleated erythrocytes in Blood by Automated coun 4.1-10.5 [facility] Lymphocytes Auto (Bld) [#/Vo l]Ordered By: Jez Dominguez on 10-10-2024 Lymphocytes (Bld) [#/Vol] Lymphocytes [#/volume] in Blood by Automated count 1.00-4.8 [facility] Lymphocytes/100 WBC Auto (Bl d)Ordered By: Jez Dominguez on 10-10-2024 Lymphocytes/100 WBC (Bld) Lymphocytes/100 leukocytes in Blood by Automated count . [facility] MCH Auto (RBC) [Entitic mass ]Ordered By: Jez Dominguez on 10-10-2024 MCH (RBC) [Entitic mass] MCH [Entitic mass] by Automated count Low 27.5-35.2 [facility] MCHC Auto (RBC) [Mass/Vol]Or dered By: Jez Dominguez on 10-10-2024 MCHC (RBC) [Mass/Vol] MCHC [Mass/volume] by Automated count 32.5-35.6 [facility] MCV Auto (RBC) [Entitic vol] Ordered By: Jez Dominguez on 10-10-2024 MCV (RBC) [Entitic vol] MCV [Entitic volume] by Automated count Low 83.5-101 [facility] Microcytes LM Ql (Bld)Ordere d By: Jez Dominguez on 10-10-2024 Microcytes Ql (Bld) Microcytes [Presence ] in Blood by Light microscopy [facility] Monocyte distribution width [Entitic volume] in Blood by AutomatedOrdered By: Jez Dominguez on 10-10-2024 Monocyte distribution width Auto (Bld) [Entitic vol] Monocyte distribution width [Entitic volume] in Blood by Automated 0.00-20.00 [facility] Monocytes Auto (Bld) [#/Vol] Ordered By: Jez Dominguez on 10-10-2024 Monocytes (Bld) [#/Vol] Automated blood monocyte count 0.0-0.8 [facility] Monocytes/100 WBC Auto (Bld) Ordered By: Jez Dominguez on 10-10-2024 Monocytes/100 WBC (Bld) Automated monocyte % . [facility] Natriuretic peptide B [Mass/ Vol]Ordered By: Jez Dominguez on 10-10-2024 Natriuretic peptide B (Bld) [Mass/Vol] BNP ser/plas 5-100 [facility] Neutrophils Auto (Bld) [#/Vo l]Ordered By: Jez oDminguez on 10-10-2024 Neutrophils (Bld) [#/Vol] Neutrophils [#/volume] in Blood by Automated count 1.8-7.7 [facility] Neutrophils/100 WBC Auto (Bl d)Ordered By: Jez Dominguez on 10-10-2024 Neutrophils/100 WBC (Bld) Automated neutrophil % . [facility] No Panel InformationOrdered By: Jez Dominguez on 10-10-2024 Estimated GFR (CKD-EPI) 28.735 mL/Min [facility] Creatinine Clearance (Chem 34.78 [facility] Nucleated erythrocytes [Pres ence] in Blood by Automated countOrdered By: Jez Dominguez on 10-10-2024 Nucleated RBC Auto Ql (Bld) Nucleated erythrocytes [Presence] in Blood by Automated count 0-0.5 [facility] Platelet adequacy [Presence] in Blood by Light microscopyOrdered By: Jez Dominguez on 10-10-2024 Platelets LM Ql (Bld) Platelet adequacy [Presence] in Blood by Light microscopy Normal [facility] Platelet mean volume Auto (B ld) [Entitic vol]Ordered By: Jez Dominguez on 10-10-2024 Platelet mean volume (Bld) [Entitic vol] Platelet mean volume [Entitic volume] in Blood by Automated count 6.6-10.1 [facility] Platelet morphology finding [Identifier] in BloodOrdered By: Jez Dominguez on 10-10-2024 Platelet morphology finding Nom (Bld) Platelet morphology finding [Identifier] in Blood Normal [facility] Platelets Auto (Bld) [#/Vol] Ordered By: Jez Dominguez on 10-10-2024 Platelets (Bld) [#/Vol] Platelets [#/volume] in Blood by Automated count 150-450 [facility] Poikilocytosis [Presence] in Blood by Light microscopyOrdered By: Jez Dominguez on 10-10-2024 Poikilocytosis LM Ql (Bld) Poikilocytosis [Presence] in Blood by Light microscopy [facility] Polychromasia [Presence] in Blood by Light microscopyOrdered By: Jez Dominguez on 10-10-2024 Polychromasia LM Ql (Bld) Polychromasia [Presence] in Blood by Light microscopy [facility] Potassium [Moles/volume] in Serum or PlasmaOrdered By: Jez Dominguez on 10-10-2024 Potassium [Moles/Vol] Potassium [Moles/v olume] in Serum or Plasma 3.5-5.1 [facility] Prothrombin Time INRon 10-10 INR Coag (PPP) [Relative time] 1.0 {INR} Normal [facility] Comment on [...] patients with mechanical heart valves: 3 - 4.5PERFORMED BY:[place] [address] [place], [place] [id number] MEDICAL DIRECTORMIKE CABAN M.D. Performed By: #### H S TROP, BNP, PT, BMP, SCAN CBC, CK ####[place] [id number] [place] [id number] [facility] PT Coag (PPP) [Time] 11.4 s Normal 9.0-12.9 [facility] Comment on above: Result Comment: A he matocrit value greater than 55% may lead to inaccurate results in coagulation testing. Patients having hematocrit values >55% require a special collection tube for coagulation studies. Please contact the laboratory at [phone] for redraw instructions. Performed By: #### H S TROP, BNP, PT, BMP, SCAN CBC, CK ####[place] [id number] [place] [id number] [facility] Prothrombin time (PT)Ordered By: Jez Dominguez on 10-10-2024 PT Coag (PPP) [Time] Prothrombin time (PT) 9.0- 12.9 [facility] Comment on above: A hematocrit value g reater than 55% may lead to inaccurate results in coagulation testing. Patients having hematocrit values >55% require a special collection tube for coagulation studies. Please contact the laboratory at [phone] for redraw instructions. RBC Auto (Bld) [#/Vol]Ordere d By: Jez Dominguez on 10-10-2024 RBC (Bld) [#/Vol] Erythrocytes [#/volu me] in Blood by Automated count High 3.90-5.60 [facility] Scan and CBCon 10-10-2024 Anisocytosis Ql (Bld) Marked Normal [facility] Comment on above: Performed By: #### H S TROP, BNP, PT, BMP, SCAN CBC, CK ####[place] [address] [place] [id number] [facility] Basophils (Bld) [#/Vol] 0.1 10*3/uL Normal 0.0-0.2 [facility] Comment on above: Performed By: #### H S TROP, BNP, PT, BMP, SCAN CBC, CK ####[place] [id number] [place] [address] Basophils/100 WBC (Bld) 1.3 % Normal . [facility] Comment on above: Performed By: #### H S TROP, BNP, PT, BMP, SCAN CBC, CK ####[address] Eosinophils (Bld) [#/Vol] 0.3 10*3/uL Normal 0.0-0.45 [facility] Comment on above: Performed By: #### H S TROP, BNP, PT, BMP, SCAN CBC, CK ####[address] Eosinophils/100 WBC (Bld) 4.0 % Normal . [facility] Comment on above: Performed By: #### H S TROP, BNP, PT, BMP, SCAN CBC, CK ####[address] Erythrocyte distribution width (RBC) [Ratio] 23.4 % High 12.0-14.8 [facility] Comment on above: Performed By: #### H S TROP, BNP, PT, BMP, SCAN CBC, CK ####[address] Hematocrit (Bld) [Volume fraction] 42.4 % Normal 38.8-50.0 [facility] Comment on above: Performed By: #### H S TROP, BNP, PT, BMP, SCAN CBC, CK ####[address] Hemoglobin (Bld) [Mass/Vol] 14.4 g/dL Normal 13.0-17.0 [facility] Comment on above: Performed By: #### H S TROP, BNP, PT, BMP, SCAN CBC, CK ####[address] Lymphocytes (Bld) [#/Vol] 2.0 10*3/uL Normal 1.00-4.8 [facility] Comment on above: Performed By: #### H S TROP, BNP, PT, BMP, SCAN CBC, CK ####[address] Lymphocytes/100 WBC (Bld) 23.4 % Normal . [facility] Comment on above: Performed By: #### H S TROP, BNP, PT, BMP, SCAN CBC, CK ####[address] MCH (RBC) [Entitic mass] 25.6 pg Low 27.5-35.2 [facility] Comment on above: Performed By: #### H S TROP, BNP, PT, BMP, SCAN CBC, CK ####[address] MCV (RBC) [Entitic vol] 75.5 fL Low 83.5-101 [facility] Comment on above: Performed By: #### H S TROP, BNP, PT, BMP, SCAN CBC, CK ####[address] Mean Corpuscular HGB Conc 33.9 g/dL Normal 32.5-35.6 [facility] Comment on above: Performed By: #### H S TROP, BNP, PT, BMP, SCAN CBC, CK ####[address] Microcytosis Marked Normal [facility] Comment on above: Performed By: #### H S TROP, BNP, PT, BMP, SCAN CBC, CK ####[address] Monocytes (Bld) [#/Vol] 0.8 10*3/uL Normal 0.0-0.8 [facility] Comment on above: Performed By: #### H S TROP, BNP, PT, BMP, SCAN CBC, CK ####[address] Monocytes/100 WBC (Bld) 16.66 % Normal 0.00-20.00 [facility] Comment on above: Performed By: #### H S TROP, BNP, PT, BMP, SCAN CBC, CK ####[address] [place] [address] [place] Monocytes/100 WBC (Bld) 9.5 % Normal . [facility] Comment on above: Performed By: #### H S TROP, BNP, PT, BMP, SCAN CBC, CK ####[address] Neutrophils (Bld) [#/Vol] 5.3 10*3/uL Normal 1.8-7.7 [facility] Comment on above: Performed By: #### H S TROP, BNP, PT, BMP, SCAN CBC, CK ####[address] Neutrophils/100 WBC (Bld) 61.8 % Normal . [facility] Comment on above: Performed By: #### H S TROP, BNP, PT, BMP, SCAN CBC, CK ####[address] NRBC% 0.2 /100{WBC} Normal 0-0.5 [facility] Comment on above: Performed By: #### H S TROP, BNP, PT, BMP, SCAN CBC, CK ####[address] Platelet Estimate Normal Normal Normal [facility] Comment on above: Performed By: #### H S TROP, BNP, PT, BMP, SCAN CBC, CK ####[place] [id number] [facility] Platelet mean volume (Bld) [Entitic vol] 9.8 fL Normal 6.6-10.1 [facility] Comment on above: Performed By: #### H S TROP, BNP, PT, BMP, SCAN CBC, CK ####[place] [id number] [facility] Platelet Morphology Normal Normal Normal [facility] Comment on above: Result Comment: PERF ORMED BY:[address] [place], [place] [phone] MEDICAL DIRECTORMIKE CABAN M.D. Performed By: #### H S TROP, BNP, PT, BMP, SCAN CBC, CK ####[place] [address] Platelets (Bld) [#/Vol] 203 10*3/uL Normal 150-450 [facility] Comment on above: Performed By: #### H S TROP, BNP, PT, BMP, SCAN CBC, CK ####[address] Poikilocytosis Slight Normal [facility] Comment on above: Performed By: #### H S TROP, BNP, PT, BMP, SCAN CBC, CK ####[place] [address] Polychromasia Slight Normal [facility] Comment on above: Performed By: #### H S TROP, BNP, PT, BMP, SCAN CBC, CK ####[address] RBC (Bld) [#/Vol] 5.62 10*6/uL High 3.90-5.60 [facility] Comment on above: Performed By: #### H S TROP, BNP, PT, BMP, SCAN CBC, CK ####[address] WBC (Bld) [#/Vol] 8.7 10*3/uL Normal 4.1-10.5 [facility] Comment on above: Performed By: #### H S TROP, BNP, PT, BMP, SCAN CBC, CK ####[address] Serum or plasma anion gap de terminationOrdered By: Jez Dominguez on 10-10-2024 Anion gap [Moles/Vol] Serum or plasma an ion gap determination High 6.0-15.0 [facility] Sodium [Moles/volume] in Ser um or PlasmaOrdered By: Jez Dominguez on 10-10-2024 Sodium [Moles/Vol] Sodium [Moles/volume ] in Serum or Plasma Low 136-145 [facility] Troponin I High Sensitivityo n 10-10-2024 Troponin I High Sensitivity 6 Normal 0-20 [facility] Comment on above: Result Comment: The Troponin units of report have been changed to meet the Chest Pain Accreditation requirement, element EC5.M1l2. Troponin units are changed from pg/ml to ng/L. Also, the decimal is removed and results are in whole numbers.PERFORMED BY:[address] [place], [place] [phone] MEDICAL DIRECTORMIKE NABEELALEXA Virk Performed By: #### H S TROP, CK ####[address] [address] [facility] Troponin I High Sensitivity 6 Normal 0-20 [facility] Comment on above: Order Comment: Result Comment: The Troponin units of report have been changed to meet the Chest Pain Accreditation requirement, element EC5.M1l2. Troponin units are changed from pg/ml to ng/L. Also, the decimal is removed and results are in whole numbers.PERFORMED BY:[address]rian[address] [place], [place] [phone] MEDICAL DIRECTORMIKE NABEELFORMERLY V[facility] BEAUFORT HOSPITALLIBORIO Virk Performed By: #### H S TROP ####[place] [id number] [facility] Troponin I High Sensitivity 6 Normal 0-20 [facility] Comment on above: Result Comment: The Troponin units of report have been changed to meet the Chest Pain Accreditation requirement, element EC5.M1l2. Troponin units are changed from pg/ml to ng/L. Also, the decimal is removed and results are in whole numbers.PERFORMED BY:[address] [place], [place] [phone] MEDICAL DIRECTORMIKE LEESALEXA Virk Performed By: #### H S TROP, BNP, PT, BMP, SCAN CBC, CK ####[address] [address] [facility] Troponin I.cardiac [Mass/vol ume] in Serum or Plasma by Detection limit <= 0.01 ng/Ordered By: Jez Dominguez on 10-10-2024 Troponin I.cardiac DL <= 0.01 ng/mL [Mass/Vol] Troponin I.cardiac [Mass/volume] in Serum or Plasma by Detection limit <= 0.01 ng/ 0-20 [facility] Comment on above: The Troponin units o f report have been changed to meet the Chest Pain Accreditation requirement, element EC5.M1l2. Troponin units are changed from pg/ml to ng/L. Also, the decimal is removed and results are in whole numbers. Urea nitrogen [Mass/volume] in Serum or PlasmaOrdered By: Jez Dominguez on 10-10-2024 Urea nitrogen [Mass/Vol] Urea nitrogen [Mass/volume] in Serum or Plasma High 7-25 [facility] WBC Auto (Bld) [#/Vol]Ordere d By: Jez Dominguez on 10-10-2024 WBC (Bld) [#/Vol] Leukocytes [#/volume ] in Blood by Automated count 4.1-10.5 [facility] X-ray reportOrdered By: Олег Oscar on 10-10-2024 Study report [facility] [address] XRay Report Signed Patient: Myra Pickard SR MR#: [id number] : 1965 Acct:[id number] Age/Sex: 59 / M ADM Date: Loc: ER Room: Type: PRE ER Attending Dr: Copies to: LYLY GÓMEZ~ Ordering Provider: LYLY GÓMEZ Date of Service: 10/10/24 XR/XR chest 2V*: Chest Pain XR chest 2V* 10/10/2024 2:43 PM SIGNS AND SYMPTOMS: Midsternal chest pain radiating to left arm, shortness breath and dizziness, nausea PROTOCOL: Frontal and lateral radiograph of the chest COMPARISON: 08/11/2024 FINDINGS: The trachea is midline. The heart and mediastinal structures are within normal limits. The lung parenchyma is clear. The bony thorax is intact. XR/XR chest 2V* IMPRESSION: No acute cardiopulmonary pathology. Impression dictated by: Олег Oscar M.D. 10/10/2024 3:12 PM Dictation Location: RADIO--17 Transcribed By: BOB 10/10/24 1512 Dictated By: Олег Oscar II, MD 10/10/24 1509 Signed By: 10/10/24 151 [facility] Work Phone: XR chest 2V*on 10-10-2024 XR chest 2V* Normal [facility] Ambulatory Visit Summaryon 0 09-27-2024 Ambulatory Visit Summary Ambulatory Visit Summary MYRA PICKARD SR :1965 Visit Date:09/27/2024 Ambulatory Visit Instructions Your Diagnosis Orchitis BPH with obstruction/lower urinary tract symptoms Incomplete bladder emptying Neurogenic bladder Antiplatelet or antithrombotic long-term use Your Care Team Attending Physician - SOLEDAD HERRERA, Yeyo Blum Primary Care Physician - TERESA LYNCH DO This Is Your Medications List tamsulosin (tamsulosin 0.4 mg Cap) Contact prescribing physician if questions or concerns albuterol (ProAir HFA) amitriptyline (amitriptyline 100 mg [...] mg Tab) omeprazole (omeprazole 40 mg Cap-DR) pregabalin (pregabalin 200 mg Cap) ropinirole (ropinirole 1 mg Tab) sitagliptin (Januvia 100 mg Tab) [...] (Temporal Artery) 37 ???C Heart Rate (Peripheral) 67 Blood Pressure 101/63 Height 182 cm Height 72 in Weight 88 kg Weight 194.007 lb BMI 26.57 What to do next Scheduled Follow-Up Appointments Monday 9:30 AM EDT With: Yeyo ROWE MD Where: [facility] [address] [place] [address] [place] [address]- You Need to Schedule the Following Appointments Follow Up with SOLEDAD HERRERA, Yeyo Blum, URL When: Where: [address] [place] [id number]- Medications What How Much When Instructions Unchanged tamsulosin (tamsulosin 0.4 mg Cap) 1 Capsules By Mouth 2 times a day Pickup at [facility]/pharmacy #[id number] Unchanged albuterol (ProAir HFA) Inhalation Every 6 [...] physician if questions or concerns Unchanged metoprolol (metoprolol tartrate 100 mg Tab) 0.5 Tablets By Mouth 2 times a day Contact prescribing physician if questions or concerns Unchanged nicotine (nicotine 14 mg/ 24 hr Transderm ER Film) Transdermal Every day Cont (more content not included)... Normal [facility] Ambulatory Visit Summary Ambulatory Visit Summary MYRA PICKARD SR :1965 Visit Date:09/27/2024 Ambulatory Visit Instructions Your Diagnosis Orchitis BPH with obstruction/lower urinary tract symptoms Incomplete bladder emptying Neurogenic bladder Antiplatelet or antithrombotic long-term use Your Care Team Attending Physician - Yeyo ROWE MD Primary Care Physician - TERESA LYNCH DO This Is Your Medications List tamsulosin (tamsulosin 0.4 mg Cap) Contact prescribing physician if questions or concerns albuterol (ProAir HFA) amitriptyline (amitriptyline 100 mg [...] mg Tab) omeprazole (omeprazole 40 mg Cap-DR) pregabalin (pregabalin 200 mg Cap) ropinirole (ropinirole 1 mg Tab) sitagliptin (Januvia 100 mg Tab) [...] (Temporal Artery) 37 ???C Heart Rate (Peripheral) 67 Blood Pressure 101/63 Height 182 cm Height 72 in Weight 88 kg Weight 194.007 lb BMI 26.57 What to do next Scheduled Follow-Up Appointments Monday. 2024 8:20 AM EDT With: MARYBEL VANG PA-C Where: [facility] [address] [place] [address]- You Need to Schedule the Following Appointments Follow Up with SOLEDAD HERRERA, ROSALIA Garcia When: Where: [address] [place] [id number]- Medications What How Much When Instructions Unchanged tamsulosin (tamsulosin 0.4 mg Cap) 1 Capsules By Mouth 2 times a day Unchanged albuterol (ProAir HFA) Inhalation Every 6 [...] physician if questions or concerns Unchanged metoprolol (metoprolol tartrate 100 mg Tab) 0.5 Tablets By Mouth 2 times a day Contact prescribing physician if questions or concerns Unchanged nicotine (nicotine 14 mg/ 24 hr Transderm ER Film) Transdermal Every day Contact prescribing physician if (more content not included)... Normal [facility] Urology Office/Clinic Noteon 09-27-2024 Urology Office/Clinic Note Urology Office/Clinic Note Chief Complaint f/u to scrotal pain HPI Staff F/u for testicular pain. Dx: orchitis Pt states he is having intense right sided testicular pain and some swelling. Pt has not had any imaging done. Did use Doxy x 3 weeks ( 2 rounds). Pt states he did respond well to that but as soon as he has intercourse all of the pain and swelling starts again. Denies urinary complaints at this time History of Present Illness Tests reviewed: reviewed PSA. I have reviewed the previous health record information and history for this patient from Marybel Vang PA-C I have reviewed and verified the staff [...] & Measurements T: 37 ???C(Temporal Artery) HR: 67(Peripheral) BP: 101/63 HT: 72 in HT: 182 cm WT: 194.007 lb WT: 88 kg BMI: 26.57 General Appearance: alert, no distress, well nourished, well developed male. Assessment/Plan Saw Kathie Vang 08/02/24. Hx DM w Right BKA. Pt accompanied by today. 1. Orchitis (N45.2: Orchitis) Tx'd w/ Doxycycline 100 mg bid x 3 weeks in November 2022. Pt presented to [facility] ER 07/24/24 with sudden onset scrotal/groin pain. Labs wnl. CT and US without torsion, hernia, obvious internal infection. Did show small R hydrocele, <1cm L epididymal cyst, and small Niranjan varicocele. MD reported mild erythema to scrotum c/w cutaneous fungal infection. Rx'd Lotrisone. No suspicion for cellulitis or Skylra's. Tx'd with Doxycycline 100mg bid x 3 weeks at prior OV. Pt requested pain meds at that time, Ultram was sent. Still c/o R sided testicular pain and swelling. Pt describes pain to having his testicle in a vise. Pt states he has extreme pain after intercourse. Upon further questioning, pt states he only voids 2-3x per day. Explained to pt the importance of timed voids. Instructed pt to void every 2-3 hours even without the sensation to void. -See below 2. BPH with obstruction/lower urinary tract symptoms (N40.1: Benign prostatic hyperplasia with lower urinary tract symptoms) PSA 01/11/22 - 2.44 05/27/24 - 1.0 No known family hx of prostate cancer. S/p cysto and UDS 02/14/23 - prostate is obstructed. bladder is abnormal, moderate (2) trabeculation, cath cystitis noted on the floor. No b.t. High-grade trabeculation. Small open mouth diverticuli. Urodynamics shows a low flow, incomplete emptying and moderate pressures. S/p TURP 04/13/23. UA today negative for blood or infection. IPSS 12. Taking Flomax 0.4mg bid. Reports he only voids 2-3x per day which is contributing to #1. Does feel he is emptying all the way. -Cont Flomax wo changes -See below 3. Incomplete bladder emptying (R33.9: Retention of urine, unspecified) PVR 06/02/23 - 31 mL 09/27/24 - 280 mL Had restarted CIC after catheter removal PO TURP. Prior PVRs ranged from 534-787 ml when pt did CIC prior to TURP. Has not had to CIC over the past year. Drinks 3-4 12oz bottles of water daily. Recommended increasing fluids. Strongly encouraged pt to perform timed voids and emptying maneuvers. Will f/up with PVR in 3-4 mos. If PVR has worsened, will proceed with CIC. See #1 and 2. -Fluids -Timed voids mandatory. crede maneuver. -F/up in 3 or 4 mos w/ PVR 4. Neurogenic bladder (N31.9: Neuromuscular dysfunction of bladder, unspecified) Sensory neurogenic bladder. See #3. 5. Antiplatelet or antithrombotic long-term use (Z79.02: superintendent terminal (current) use of antithrombotics/antiplate lets) On Plavix. Hx of [place]. Elevated risk for periop complications in the future. Follow-up With When Contact Information SOLEDAD HERRERA, Yeyo Blum, URL [address] [place] [address]- Additional Instructions: 4 mos w/ PVR Patient Education Acute Urinary Retention, Male I, Mattie Foster, personally scribed for Dr. Rowe on 09/27/2024 11:59:07. . Documentation recorded by the Mattie negron, accurately reflects the services(s) I performed and decisions made by me. Authenticated by Dr. Rowe on 09/27/2024 12:02:59. 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 Normal [facility] Comment on above: Result Comment: Elec tronically Signed By: Yeyo ROWE MD\.br\Date and Time Signed: 09/27/24 12:03 EDT\.br\Electronically Co-Signed By: Mattie Foster.br\Date and Time Co-Signed: 09/27/24 12:00 EDT HbA1c HPLC (Bld) [Mass fract ion]on 08-30-2024 HbA1c (Bld) [Mass fraction] Hemoglobin A1c/Hemoglobin.total in Blood by HPLC [facility] Alanine aminotransferase [En zymatic activity/volume] in Serum or PlasmaOrdered By: Kevon Viear on 08-13-2024 ALT [Catalytic activity/Vol] Alanine aminotransferase [Enzymatic activity/volume] in Serum or Plasma 7-52 [facility] Albumin [Mass/volume] in Ser um or Plasma by Bromocresol green (BCG) dye binding methoOrdered By: Kevon Viera on 08-13-2024 Albumin BCG dye [Mass/Vol] Albumin [Mass/volume] in Serum or Plasma by Bromocresol green (BCG) dye binding metho Low 3.5-5.7 [facility] Alkaline phosphatase [Enzyma tic activity/volume] in Serum or PlasmaOrdered By: Kevon Viera on 08-13-2024 ALP [Catalytic activity/Vol] Alkaline phosphatase [Enzymatic activity/volume] in Serum or Plasma 34-104 [facility] Aspartate aminotransferase [ Enzymatic activity/volume] in Serum or PlasmaOrdered By: Kevon Viera on 08-13-2024 AST [Catalytic activity/Vol] Aspartate aminotransferase [Enzymatic activity/volume] in Serum or Plasma Low 13-39 [facility] Bilirubin.total [Mass/volume ] in Serum or PlasmaOrdered By: Kevon Bazzir on 08-13-2024 Bilirubin [Mass/Vol] Bilirubin.total [Mass/volume] in Serum or Plasma 0.3-1.0 [facility] Calcium [Mass/volume] in Ser um or PlasmaOrdered By: Obshelly Haydenomar on 08-13-2024 Calcium [Mass/Vol] Calcium [Mass/volume ] in Serum or Plasma Low 8.6-10.3 [facility] Carbon dioxide, total [Moles /volume] in Serum or PlasmaOrdered By: Obshelly Haydenomar on 08-13-2024 CO2 [Moles/Vol] Carbon dioxide, tota l [Moles/volume] in Serum or Plasma 21.0-31.0 [facility] Chloride [Moles/volume] in S ilia or PlasmaOrdered By: Obshelly Haydenomar on 08-13-2024 Chloride [Moles/Vol] Chloride [Moles/vol ume] in Serum or Plasma High 98-107 [facility] Comprehensive Metabolic Pane guy 08-13-2024 Albumin [Mass/Vol] 3.4 g/dL Low 3.5-5.7 [facility] Comment on above: Performed By: #### C DANA, CMP ####[place] [address] [address] Albumin/Globulin [Mass ratio] 1.4 {ratio} Normal [facility] Comment on above: Performed By: #### C DANA, CMP ####[place] [address] [place] [id number] [facility] ALP [Catalytic activity/Vol] 93 U/L Normal 34-104 [facility] Comment on above: Performed By: #### C DANA, CMP ####[place] [address] [place] [id number] [facility] ALT [Catalytic activity/Vol] 9 U/L Normal 7-52 [facility] Comment on above: Performed By: #### C DANA, CMP ####[place] [address] [place] [id number] [facility] Anion gap [Moles/Vol] 10.7 mmol/L Normal 6.0-15.0 [facility] Comment on above: Performed By: #### C DANA, CMP ####[place] [id number] [facility] AST [Catalytic activity/Vol] 12 U/L Low 13-39 [facility] Comment on above: Performed By: #### C DANA, CMP ####[place] [id number] [facility] Bilirubin [Mass/Vol] 0.3 mg/dL Normal 0.3-1.0 [facility] Comment on above: Performed By: #### C DANA, CMP ####[address] Calcium [Mass/Vol] 7.5 mg/dL Low 8.6-10.3 [facility] Comment on above: Performed By: #### C DANA, CMP ####[address] Chloride [Moles/Vol] 111 mmol/L High 98-107 [facility] Comment on above: Performed By: #### C DANA, CMP ####[place] [id number] [facility] CO2 [Moles/Vol] 21.5 mmol/L Normal 21.0-31.0 [facility] Comment on above: Performed By: #### C DANA, CMP ####[place] [id number] [facility] Creatinine [Mass/Vol] 1.59 mg/dL High 0.70-1.30 [facility] Comment on above: Performed By: #### C DANA, CMP ####[place] [id number] [facility] Creatinine Clr Calc Pharmacy 54.91 Normal [facility] Comment on above: Result Comment: PERF ORMED BY:[address] [place], [place] [phone] MEDICAL DIRECTORMIKE CABAN M.D. Performed By: #### C DANA, CMP ####[place] [id number] [facility] Estimated GFR 49.698 mL/Min Normal [facility] Comment on above: Performed By: #### C DANA, CMP ####[place] [address] [place] [address] [facility] Globulin (S) [Mass/Vol] 2.4 g/dL Normal [facility] Comment on above: Performed By: #### C DANA, CMP ####[place] [id number] [facility] Glucose [Mass/Vol] 140 mg/dL High 70-100 [facility] Comment on above: Result Comment: [place] Glucose Reference Range is dependent on time and content of last meal. Glucose of more than 200 mg/dL in a nonstressed, ambulatory subject supports the diagnosis of Diabetes Mellitus. ADA recommended reference range Performed By: #### C DANA, CMP ####[place] [id number] [facility] Potassium [Moles/Vol] 4.2 mmol/L Normal 3.5-5.1 [facility] Comment on above: Performed By: #### C DANA, CMP ####[place] [id number] [facility] Protein [Mass/Vol] 5.8 g/dL Low 6.4-8.9 [facility] Comment on above: Performed By: #### C DANA, CMP ####[place] [id number] [facility] Sodium [Moles/Vol] 139 mmol/L Normal 136-145 [facility] Comment on above: Performed By: #### C DANA, CMP ####[place] [id number] [facility] Urea nitrogen [Mass/Vol] 13 mg/dL Normal 7-25 [facility] Comment on above: Performed By: #### C DANA, CMP ####[address] [place] [address] [place] Creatinine [Mass/volume] in Serum or PlasmaOrdered By: Kevon Viera on 08-13-2024 Creatinine [Mass/Vol] Creatinine [Mass/v olume] in Serum or Plasma High 0.70-1.30 [facility] Erythrocyte distribution wid th Auto (RBC) [Ratio]Ordered By: Kevon Viera on 08-13-2024 Erythrocyte distribution width (RBC) [Ratio] Erythrocyte distribution width [Ratio] by Automated count High 12.0-14.8 [facility] Globulin Calc (S) [Mass/Vol] Ordered By: Kevon Viera on 08-13-2024 Globulin (S) [Mass/Vol] Serum globulin measurement by calculation (mass/volume) [facility] Glucose Glucometer (BldC) [M ass/Vol]Ordered By: Kevon Viera on 08-13-2024 Glucose [Mass/Vol] Capillary blood gluc ose measurement by glucometer (mass/volume) [facility] Comment on above: Random Glucose Refer ence Range is dependent on time and content of last meal. Glucose of more than 200 mg/dL in a nonstressed, ambulatory subject supports the diagnosis of Diabetes Mellitus. Glucose Poct Glucometerson 0 08-13-2024 Glucose [Mass/Vol] 150 mg/dL Normal [facility] Comment on above: Result Comment: [facility] Glucose Reference Range is dependent on time and content of last meal. Glucose of more than 200 mg/dL in a nonstressed, ambulatory subject supports the diagnosis of Diabetes Mellitus.PERFORMED BY:[place] [address] [place], [place] [phone] MEDICAL DIRECTORMIKE CABAN M.D. Performed By: #### G LULS ####Point of Care testing, Glucose [Mass/Vol] 173 mg/dL Normal [facility] Comment on above: Result Comment: [facility] Glucose Reference Range is dependent on time and content of last meal. Glucose of more than 200 mg/dL in a nonstressed, ambulatory subject supports the diagnosis of Diabetes Mellitus.PERFORMED BY:[place] [address] [address] [place], [place] [phone] MEDICAL DIRECTORMIKE CABAN M.D. Performed By: #### Ines QUINTEROS ####Point of Care testing, Glucose [Mass/volume] in Ser um or PlasmaOrdered By: Kevon Viera on 08-13-2024 Glucose [Mass/Vol] Glucose [Mass/volume ] in Serum or Plasma High 70-100 [facility] Comment on above: ADA recommended refe rence rangeRandom Glucose Reference Range is dependent on time and content of last meal. Glucose of more than 200 mg/dL in a nonstressed, ambulatory subject supports the diagnosis of Diabetes Mellitus. Hematocrit Auto (Bld) [Volum e fraction]Ordered By: Kevon Viera on 08-13-2024 Hematocrit (Bld) [Volume fraction] Hematocrit [Volume Fraction] of Blood by Automated count Low 38.8-50.0 [facility] Hemoglobin [Mass/volume] in BloodOrdered By: Kevon Viear on 08-13-2024 Hemoglobin (Bld) [Mass/Vol] Hemoglobin [Mass/volume] in Blood Low 13.0-17.0 [facility] Hemogram CBC Without Diffon 08-13-2024 Erythrocyte distribution width (RBC) [Ratio] 19.9 % High 12.0-14.8 [facility] Comment on above: Performed By: #### C DANA, CMP ####[place] [address] [place] [id number] [facility] Hematocrit (Bld) [Volume fraction] 30.0 % Low 38.8-50.0 [facility] Comment on above: Performed By: #### C DANA, CMP ####[place] [address] [place] [address] [facility] Hemoglobin (Bld) [Mass/Vol] 9.5 g/dL Low 13.0-17.0 [facility] Comment on above: Performed By: #### C BCMARI, CMP ####[place] [address] [place] [phone] [facility] MCH (RBC) [Entitic mass] 21.5 pg Low 27.5-35.2 [facility] Comment on above: Performed By: #### C BCNO, CMP ####[place] [id number] [facility] MCV (RBC) [Entitic vol] 67.8 fL Low 83.5-101 [facility] Comment on above: Performed By: #### C BCNO, CMP ####[place] [id number] [facility] Mean Corpuscular HGB Conc 31.7 g/dL Low 32.5-35.6 [facility] Comment on above: Performed By: #### C BCNO, CMP ####[place] [id number] [facility] Platelet mean volume (Bld) [Entitic vol] 10.1 fL Normal 6.6-10.1 [facility] Comment on above: Result Comment: PERF ORMED BY:[address] [place], [place] [phone] MEDICAL DIRECTORMIKE CABAN M.D. Performed By: #### C BCNO, CMP ####[place] [id number] [facility] Platelets (Bld) [#/Vol] 153 10*3/uL Normal 150-450 [facility] Comment on above: Performed By: #### C BCNO, CMP ####[place] [id number] [facility] RBC (Bld) [#/Vol] 4.42 10*6/uL Normal 3.90-5.60 [facility] Comment on above: Performed By: #### C BCNO, CMP ####[place] [id number] [facility] WBC (Bld) [#/Vol] 8.0 10*3/uL Normal 4.1-10.5 [facility] Comment on above: Performed By: #### C BCNO, CMP ####[place] [id number] [place] Leukocytes [#/volume] correc jorge for nucleated erythrocytes in Blood by Automated counOrdered By: Kevon Haydenomar on 08-13-2024 WBC corrected for nucl RBC Auto (Bld) [#/Vol] Leukocytes [#/volume] corrected for nucleated erythrocytes in Blood by Automated coun 4.1-10.5 [facility] MCH Auto (RBC) [Entitic mass ]Ordered By: Objosedamaira Haydenomar on 08-13-2024 MCH (RBC) [Entitic mass] MCH [Entitic mass] by Automated count Low 27.5-35.2 [facility] MCHC Auto (RBC) [Mass/Vol]Or dered By: Objosedamaira Haydenomar on 08-13-2024 MCHC (RBC) [Mass/Vol] MCHC [Mass/volume] by Automated count Low 32.5-35.6 [facility] MCV Auto (RBC) [Entitic vol] Ordered By: Kevon Haydenomar on 08-13-2024 MCV (RBC) [Entitic vol] MCV [Entitic volume] by Automated count Low 83.5-101 [facility] No Panel InformationOrdered By: Kevon Bazzir on 08-13-2024 Estimated GFR (CKD-EPI) 49.698 mL/Min [facility] Creatinine Clearance (Chem 54.91 [facility] 49.698 mL/Min [facility] 54.91 [facility] Platelet mean volume Auto (B ld) [Entitic vol]Ordered By: Kevon Haydenomar on 08-13-2024 Platelet mean volume (Bld) [Entitic vol] Platelet mean volume [Entitic volume] in Blood by Automated count 6.6-10.1 [facility] Platelets Auto (Bld) [#/Vol] Ordered By: Kevon Haydenomar on 08-13-2024 Platelets (Bld) [#/Vol] Platelets [#/volume] in Blood by Automated count 150-450 [facility] Potassium [Moles/volume] in Serum or PlasmaOrdered By: Kevon Haydenomar on 08-13-2024 Potassium [Moles/Vol] Potassium [Moles/v olume] in Serum or Plasma 3.5-5.1 [facility] Protein [Mass/volume] in Ser um or PlasmaOrdered By: Obaydah Daromar on 08-13-2024 Protein [Mass/Vol] Protein [Mass/volume ] in Serum or Plasma Low 6.4-8.9 [facility] RBC Auto (Bld) [#/Vol]Ordere d By: Obaydah Daromar on 08-13-2024 RBC (Bld) [#/Vol] Erythrocytes [#/volu me] in Blood by Automated count 3.90-5.60 [facility] Serum or plasma albumin/glob ulin mass ratioOrdered By: Obaydah Daromar on 08-13-2024 Albumin/Globulin [Mass ratio] Serum or plasma albumin/globulin mass ratio [facility] Serum or plasma anion gap de terminationOrdered By: Obaydah Daromar on 08-13-2024 Anion gap [Moles/Vol] Serum or plasma an ion gap determination 6.0-15.0 [facility] Sodium [Moles/volume] in Ser um or PlasmaOrdered By: Obaydah Daromar on 08-13-2024 Sodium [Moles/Vol] Sodium [Moles/volume ] in Serum or Plasma 136-145 [facility] Urea nitrogen [Mass/volume] in Serum or PlasmaOrdered By: Obaydah Daromar on 08-13-2024 Urea nitrogen [Mass/Vol] Urea nitrogen [Mass/volume] in Serum or Plasma 7-25 [facility] Albumin Levelon 08-12-2024 Albumin [Mass/Vol] 3.5 g/dL Normal 3.5-5.7 [facility] Comment on above: Result Comment: PERF ORMED BY:[facility] [place], [place] [phone] MEDICAL DIRECTORMIKE CABAN M.D. Performed By: #### S CAN CBC, ALB, BMP ####[facility] [address] [place] [address] [facility] Anisocytosis LM Ql (Bld)Orde red By: Marge Andino on 08-12-2024 Anisocytosis Ql (Bld) Anisocytosis [Pres ence] in Blood by Light microscopy [facility] Basic Metabolic Panelon 08-03 Anion gap [Moles/Vol] 11.6 mmol/L Normal 6.0-15.0 [facility] Comment on above: Performed By: #### S CAN CBC, ALB, BMP ####[place] [address] [place] [id number] [facility] Calcium [Mass/Vol] 6.3 mg/dL Off scale low 8.6-10.3 [facility] Comment on above: Result Comment: Crit ical Result Called to and read back by: NOT FIRST TIME CRITICAL at: 08/12/2024 06:59:53 by:RAFAEL Performed By: #### S CAN CBC, ALB, BMP ####[place] [id number] [facility] Chloride [Moles/Vol] 107 mmol/L Normal 98-107 [facility] Comment on above: Performed By: #### S CAN CBC, ALB, BMP ####[place] [id number] [facility] CO2 [Moles/Vol] 25.1 mmol/L Normal 21.0-31.0 [facility] Comment on above: Performed By: #### S CAN CBC, ALB, BMP ####[place] [id number] [facility] Creatinine [Mass/Vol] 1.79 mg/dL Significan t change up 0.70-1.30 [facility] Comment on above: Performed By: #### S CAN CBC, ALB, BMP ####[place] [id number] [facility] Creatinine Clr Calc Pharmacy 48.77 Normal [facility] Comment on above: Result Comment: PERF ORMED BY:[address] [place], [place] [phone] MEDICAL DIRECTORMIKE CABAN M.D. Performed By: #### S CAN CBC, ALB, BMP ####[place] [id number] [facility] Estimated GFR 43.111 mL/Min Normal [facility] Comment on above: Performed By: #### S CAN CBC, ALB, BMP ####[facility] Glucose [Mass/Vol] 91 mg/dL Normal 70-100 [facility] Comment on above: Result Comment: [place] Glucose Reference Range is dependent on time and content of last meal. Glucose of more than 200 mg/dL in a nonstressed, ambulatory subject supports the diagnosis of Diabetes Mellitus. ADA recommended reference range Performed By: #### S CAN CBC, ALB, BMP ####[place] [address] Potassium [Moles/Vol] 3.7 mmol/L Normal 3.5-5.1 [facility] Comment on above: Performed By: #### S CAN CBC, ALB, BMP ####[place] [address] Sodium [Moles/Vol] 140 mmol/L Normal 136-145 [facility] Comment on above: Performed By: #### S CAN CBC, ALB, BMP ####[place] [address] Urea nitrogen [Mass/Vol] 20 mg/dL Normal 7-25 [facility] Comment on above: Performed By: #### S CAN CBC, ALB, BMP ####[place] [address] Basophils Auto (Bld) [#/Vol] Ordered By: Marge Andino on 08-12-2024 Basophils (Bld) [#/Vol] Automated basophil count 0.0-0.2 [facility] Basophils/100 WBC Auto (Bld) Ordered By: Marge Andino on 08-12-2024 Basophils/100 WBC (Bld) Automated basophil % . [facility] Eosinophils Auto (Bld) [#/Vo l]Ordered By: Marge Andino on 08-12-2024 Eosinophils (Bld) [#/Vol] Automated eosinophil count 0.0-0.45 [facility] Eosinophils/100 WBC Auto (Bl d)Ordered By: Marge Andino on 08-12-2024 Eosinophils/100 WBC (Bld) Automated eosinophil % . [facility] Erythrocyte morphology findi ng [Identifier] in BloodOrdered By: Marge Andino on 08-12-2024 RBC morphology finding Nom (Bld) RBC morphology [facility] Glucose Poct Glucometerson 0 08-12-2024 Glucose [Mass/Vol] 168 mg/dL Normal [facility] Comment on above: Result Comment: [place] Glucose Reference Range is dependent on time and content of last meal. Glucose of more than 200 mg/dL in a nonstressed, ambulatory subject supports the diagnosis of Diabetes Mellitus.PERFORMED BY:[place] [address] [place], [place] [phone] MEDICAL DIRECTORMIKE CABAN M.D. Performed By: #### G LULS ####Point of Care testing, Glucose [Mass/Vol] 162 mg/dL Normal [facility] Comment on above: Result Comment: [facility] Glucose Reference Range is dependent on time and content of last meal. Glucose of more than 200 mg/dL in a nonstressed, ambulatory subject supports the diagnosis of Diabetes Mellitus.PERFORMED BY:[place] [address] [place], [place] [phone] TREVIN CABAN M.D. Performed By: #### G LULS ####Point of Care testing, Glucose [Mass/Vol] 179 mg/dL Normal [facility] Comment on above: Result Comment: [facility] Glucose Reference Range is dependent on time and content of last meal. Glucose of more than 200 mg/dL in a nonstressed, ambulatory subject supports the diagnosis of Diabetes Mellitus.PERFORMED BY:[place] [address] [place], [place] [phone] MEDICAL DIRECTORMIKE CABAN M.D. Performed By: #### G LULS ####Point of Care testing, Glucose [Mass/Vol] 98 mg/dL Normal [facility] Comment on above: Result Comment: [place] Glucose Reference Range is dependent on time and content of last meal. Glucose of more than 200 mg/dL in a nonstressed, ambulatory subject supports the diagnosis of Diabetes Mellitus.PERFORMED BY:[place] [address] [place], [place] [phone] MEDICAL DIRECTORMIKE CABAN M.D. Performed By: #### G LULS ####Point of Care testing, Hypochromia LM Ql (Bld)Order ed By: Marge Andino on 08-12-2024 Hypochromia Ql (Bld) Hypochromia [Presen ce] in Blood by Light microscopy [facility] Lymphocytes Auto (Bld) [#/Vo l]Ordered By: Marge Andino on 08-12-2024 Lymphocytes (Bld) [#/Vol] Lymphocytes [#/volume] in Blood by Automated count 1.00-4.8 [facility] Lymphocytes/100 WBC Auto (Bl d)Ordered By: Marge Andino on 08-12-2024 Lymphocytes/100 WBC (Bld) Lymphocytes/100 leukocytes in Blood by Automated count . [facility] Magnesiumon 08-12-2024 Magnesium [Mass/Vol] 2.9 mg/dL Significant change up 1.9-2.7 [facility] Comment on above: Result Comment: PERF ORMED BY:[place] [address] [place] [phone] MEDICAL DIRECTORMOKAREN CABAN M.D. Performed By: #### M G ####[facility] [place] [address] [facility] Magnesium [Mass/volume] in S ilia or PlasmaOrdered By: Maurice Francis on 08-12-2024 Magnesium [Mass/Vol] Magnesium [Mass/vol ume] in Serum or Plasma Significant change up 1.9-2.7 [facility] Comment on above: Delta: 0.5 on -0415 Microcytes LM Ql (Bld)Ordere d By: Marge Andino on 08-12-2024 Microcytes Ql (Bld) Microcytes [Presence ] in Blood by Light microscopy [facility] Monocytes Auto (Bld) [#/Vol] Ordered By: Marge Andino on 08-12-2024 Monocytes (Bld) [#/Vol] Automated blood monocyte count 0.0-0.8 [facility] Monocytes/100 WBC Auto (Bld) Ordered By: Marge Andino on 08-12-2024 Monocytes/100 WBC (Bld) Automated monocyte % . [facility] Neutrophils Auto (Bld) [#/Vo l]Ordered By: Marge Andino on 08-12-2024 Neutrophils (Bld) [#/Vol] Neutrophils [#/volume] in Blood by Automated count High 1.8-7.7 [facility] Neutrophils/100 WBC Auto (Bl d)Ordered By: Marge Andino on 08-12-2024 Neutrophils/100 WBC (Bld) Automated neutrophil % . [facility] No Panel InformationOrdered By: Marge Andino on 08-12-2024 CBC Comment See comment [facility] Comment on above: There is significant microcytosis which suggests the possibility of iron deficiency. Consider serum ferritin and iron studies. See comment [facility] Nucleated erythrocytes [Pres ence] in Blood by Automated countOrdered By: Marge Andino on 08-12-2024 Nucleated RBC Auto Ql (Bld) Nucleated erythrocytes [Presence] in Blood by Automated count 0-0.5 [facility] Ovalocytes [Presence] in Blo od by Light microscopyOrdered By: Marge Andino on 08-12-2024 Ovalocytes LM Ql (Bld) Ovalocyte detection [facility] Platelet adequacy [Presence] in Blood by Light microscopyOrdered By: Marge Andino on 08-12-2024 Platelets LM Ql (Bld) Platelet adequacy [Presence] in Blood by Light microscopy Normal [facility] Platelet morphology finding [Identifier] in BloodOrdered By: Marge Andino on 08-12-2024 Platelet morphology finding Nom (Bld) Platelet morphology finding [Identifier] in Blood Normal [facility] Poikilocytosis [Presence] in Blood by Light microscopyOrdered By: Marge Andino on 08-12-2024 Poikilocytosis LM Ql (Bld) Poikilocytosis [Presence] in Blood by Light microscopy [facility] Scan and CBCon 08-12-2024 Additional Comments Normal [facility] Comment on above: Result Comment: Ther e is significant microcytosis which suggests the possibility of iron deficiency. Consider serum ferritin and iron studies.PERFORMED BY:[address] [place], [place] [id number] MEDICAL DIRECTORMIKE CABAN M.D. Performed By: #### S CAN CBC, ALB, BMP ####[address] Anisocytosis Ql (Bld) Marked Normal [facility] Comment on above: Performed By: #### S CAN CBC, ALB, BMP ####[address] Basophils (Bld) [#/Vol] 0.1 10*3/uL Normal 0.0-0.2 [facility] Comment on above: Performed By: #### S CAN CBC, ALB, BMP ####[address] Basophils/100 WBC (Bld) 0.8 % Normal . [facility] Comment on above: Performed By: #### S CAN CBC, ALB, BMP ####[address] Eosinophils (Bld) [#/Vol] 0.3 10*3/uL Normal 0.0-0.45 [facility] Comment on above: Performed By: #### S CAN CBC, ALB, BMP ####[address] Eosinophils/100 WBC (Bld) 3.1 % Normal . [facility] Comment on above: Performed By: #### S CAN CBC, ALB, BMP ####[address] Erythrocyte distribution width (RBC) [Ratio] 20.0 % High 12.0-14.8 [facility] Comment on above: Performed By: #### S CAN CBC, ALB, BMP ####[address] Hematocrit (Bld) [Volume fraction] 29.5 % Low 38.8-50.0 [facility] Comment on above: Performed By: #### S CAN CBC, ALB, BMP ####[address] Hemoglobin (Bld) [Mass/Vol] 9.5 g/dL Low 13.0-17.0 [facility] Comment on above: Performed By: #### S CAN CBC, ALB, BMP ####[address] Hypochromasia Slight Normal [facility] Comment on above: Performed By: #### S CAN CBC, ALB, BMP ####[address] Lymphocytes (Bld) [#/Vol] 1.0 10*3/uL Normal 1.00-4.8 [facility] Comment on above: Performed By: #### S CAN CBC, ALB, BMP ####[address] Lymphocytes/100 WBC (Bld) 9.6 % Normal . [facility] Comment on above: Performed By: #### S CAN CBC, ALB, BMP ####[address] MCH (RBC) [Entitic mass] 21.9 pg Low 27.5-35.2 [facility] Comment on above: Performed By: #### S CAN CBC, ALB, BMP ####[address] MCV (RBC) [Entitic vol] 68.2 fL Low 83.5-101 [facility] Comment on above: Performed By: #### S CAN CBC, ALB, BMP ####[address] Mean Corpuscular HGB Conc 32.1 g/dL Low 32.5-35.6 [facility] Comment on above: Performed By: #### S CAN CBC, ALB, BMP ####[address] Microcytosis Moderate Normal [facility] Comment on above: Performed By: #### S CAN CBC, ALB, BMP ####[address] Monocytes (Bld) [#/Vol] 0.8 10*3/uL Normal 0.0-0.8 [facility] Comment on above: Performed By: #### S CAN CBC, ALB, BMP ####[address] Monocytes/100 WBC (Bld) 8.3 % Normal . [facility] Comment on above: Performed By: #### S CAN CBC, ALB, BMP ####[address] Neutrophils (Bld) [#/Vol] 8.0 10*3/uL High 1.8-7.7 [facility] Comment on above: Performed By: #### S CAN CBC, ALB, BMP ####[address] Neutrophils/100 WBC (Bld) 78.2 % Normal . [facility] Comment on above: Performed By: #### S CAN CBC, ALB, BMP ####[address] NRBC% 0.1 /100{WBC} Normal 0-0.5 [facility] Comment on above: Performed By: #### S CAN CBC, ALB, BMP ####[address] Ovalocytes Slight Normal [facility] Comment on above: Performed By: #### S CAN CBC, ALB, BMP ####[address] Platelet Estimate Normal Normal Normal [facility] Comment on above: Performed By: #### S CAN CBC, ALB, BMP ####[place] [id number] [facility] Platelet mean volume (Bld) [Entitic vol] 9.4 fL Normal 6.6-10.1 [facility] Comment on above: Performed By: #### S CAN CBC, ALB, BMP ####[place] [id number] [facility] Platelet Morphology Normal Normal Normal [facility] Comment on above: Performed By: #### S CAN CBC, ALB, BMP ####[place] [id number] Platelets (Bld) [#/Vol] 162 10*3/uL Normal 150-450 [facility] Comment on above: Performed By: #### S CAN CBC, ALB, BMP ####[address] Poikilocytosis Slight Normal [facility] Comment on above: Performed By: #### S CAN CBC, ALB, BMP ####[place] [address] RBC (Bld) [#/Vol] 4.32 10*6/uL Normal 3.90-5.60 [facility] Comment on above: Performed By: #### S CAN CBC, ALB, BMP ####[place] [id number] [facility] WBC (Bld) [#/Vol] 10.2 10*3/uL Normal 4.1-10.5 [facility] Comment on above: Performed By: #### S CAN CBC, ALB, BMP ####[place] [id number] [facility] WBC Auto (Bld) [#/Vol]Ordere d By: Marge Andino on 08-12-2024 WBC (Bld) [#/Vol] Leukocytes [#/volume ] in Blood by Automated count 4.1-10.5 [facility] Alanine aminotransferase [En zymatic activity/volume] in Serum or PlasmaOrdered By: Francisco Duncan on 08-11-2024 ALT [Catalytic activity/Vol] Alanine aminotransferase [Enzymatic activity/volume] in Serum or Plasma 7-52 [facility] Albumin [Mass/volume] in Ser um or Plasma by Bromocresol green (BCG) dye binding methoOrdered By: Francisco Duncan on 08-11-2024 Albumin BCG dye [Mass/Vol] Albumin [Mass/volume] in Serum or Plasma by Bromocresol green (BCG) dye binding metho 3.5-5.7 [facility] Alkaline phosphatase [Enzyma tic activity/volume] in Serum or PlasmaOrdered By: Francisco Duncan on 08-11-2024 ALP [Catalytic activity/Vol] Alkaline phosphatase [Enzymatic activity/volume] in Serum or Plasma High 34-104 [facility] Anisocytosis LM Ql (Bld)Orde red By: Francisco Duncan on 08-11-2024 Anisocytosis Ql (Bld) Anisocytosis [Pres ence] in Blood by Light microscopy [facility] Appearance of UrineOrdered B y: Francisco Duncan on 08-11-2024 Appearance (U) Urine appearance Clear [facility] Aspartate aminotransferase [ Enzymatic activity/volume] in Serum or PlasmaOrdered By: Francisco Duncan on 08-11-2024 AST [Catalytic activity/Vol] Aspartate aminotransferase [Enzymatic activity/volume] in Serum or Plasma Low 13-39 [facility] Band form neutrophils/100 WB C Manual cnt (Bld)Ordered By: Francisco Duncan on 08-11-2024 Band form neutrophils/100 WBC (Bld) Peripheral white blood cell differential % bands, microscopic exam 0-5 [facility] Basophils Auto (Bld) [#/Vol] Ordered By: Francisco Duncan on 08-11-2024 Basophils (Bld) [#/Vol] Automated basophil count [facility] Basophils/100 WBC Auto (Bld) Ordered By: Francisco Duncan on 08-11-2024 Basophils/100 WBC (Bld) Automated basophil % [facility] Basophils/100 WBC Manual cnt (Bld)Ordered By: Francisco Duncan on 08-11-2024 Basophils/100 WBC (Bld) Basophils/100 leukocytes in Blood by Manual count 0-2 [facility] Bilirubin Test strip Ql (U)O rdered By: Francisco Duncan on 08-11-2024 Bilirubin Ql (U) Bilirubin.total [Presence] in Urine by Test strip Negative [facility] Bilirubin.total [Mass/volume ] in Serum or PlasmaOrdered By: Francisco Duncan on 08-11-2024 Bilirubin [Mass/Vol] Bilirubin.total [Mass/volume] in Serum or Plasma 0.3-1.0 [facility] Leigh Ann cells [Presence] in Blo od by Light microscopyOrdered By: Francisco Duncan on 08-11-2024 Leigh Ann cells LM Ql (Bld) Leigh Ann cells [Prese nce] in Blood by Light microscopy [facility] CT angio neckon 08-11-2024 CT angio neck Normal [facility] Calcium [Mass/volume] in Ser um or PlasmaOrdered By: Francisco Duncan on 08-11-2024 Calcium [Mass/Vol] Calcium [Mass/volume ] in Serum or Plasma Critically low 8.6-10.3 [facility] Comment on above: Critical Result Call ed to and read back by: MONCHO FINK at: 08/11/2024 04:56:06 by:RANDOLPH Carbon dioxide, total [Moles /volume] in Serum or PlasmaOrdered By: Francisco Duncan on 08-11-2024 CO2 [Moles/Vol] Carbon dioxide, tota l [Moles/volume] in Serum or Plasma 21.0-31.0 [facility] Chloride [Moles/volume] in S ilia or PlasmaOrdered By: Francisco Duncan on 08-11-2024 Chloride [Moles/Vol] Chloride [Moles/vol ume] in Serum or Plasma 98-107 [facility] Color Auto (U)Ordered By: Brandon Duncan on 08-11-2024 Color (U) Color of Urine by Auto Yellow [facility] Comprehensive Metabolic Pane guy 08-11-2024 Albumin [Mass/Vol] 4.2 g/dL Normal 3.5-5.7 [facility] Comment on above: Performed By: #### D IFF CBC, CK, PT, PTT, CMP, HS TROP ####[facility] [id number] [place] [address] [facility] Albumin/Globulin [Mass ratio] 1.6 {ratio} Normal [facility] Comment on above: Performed By: #### D IFF CBC, CK, PT, PTT, CMP, HS TROP ####[address] ALP [Catalytic activity/Vol] 105 U/L High 34-104 [facility] Comment on above: Performed By: #### D IFF CBC, CK, PT, PTT, CMP, HS TROP ####[address] ALT [Catalytic activity/Vol] 11 U/L Normal 7-52 [facility] Comment on above: Performed By: #### D IFF CBC, CK, PT, PTT, CMP, HS TROP ####[address] Anion gap [Moles/Vol] 16.0 mmol/L High 6.0-15.0 [facility] Comment on above: Performed By: #### D IFF CBC, CK, PT, PTT, CMP, HS TROP ####[address] AST [Catalytic activity/Vol] 12 U/L Low 13-39 [facility] Comment on above: Performed By: #### D IFF CBC, CK, PT, PTT, CMP, HS TROP ####[address] Bilirubin [Mass/Vol] 0.4 mg/dL Normal 0.3-1.0 [facility] Comment on above: Performed By: #### D IFF CBC, CK, PT, PTT, CMP, HS TROP ####[address] Calcium [Mass/Vol] 6.1 mg/dL Off scale low 8.6-10.3 [facility] Comment on above: Result Comment: Crit ical Result Called to and read back by: MONCHO FINK at: 08/11/2024 04:56:06 by:RANDOLPH Performed By: #### D IFF CBC, CK, PT, PTT, CMP, HS TROP ####[place] [id number] [facility] Chloride [Moles/Vol] 100 mmol/L Normal 98-107 [facility] Comment on above: Performed By: #### D IFF CBC, CK, PT, PTT, CMP, HS TROP ####[address] [address] [facility] CO2 [Moles/Vol] 27.1 mmol/L Normal 21.0-31.0 [facility] Comment on above: Performed By: #### D IFF CBC, CK, PT, PTT, CMP, HS TROP ####[address] [address] [facility] Creatinine [Mass/Vol] 2.62 mg/dL High 0.70-1.30 [facility] Comment on above: Performed By: #### D IFF CBC, CK, PT, PTT, CMP, HS TROP ####[address] Creatinine Clr Calc Pharmacy 33.32 Normal [facility] Comment on above: Result Comment: PERF ORMED BY:[address] [place], [place] [phone] MEDICAL DIRECTORMIKE CABAN M.D. Performed By: #### D IFF CBC, CK, PT, PTT, CMP, HS TROP ####[address] [address] [facility] Estimated GFR 27.293 mL/Min Normal [facility] Comment on above: Performed By: #### D IFF CBC, CK, PT, PTT, CMP, HS TROP ####[address] [address] [facility] Globulin (S) [Mass/Vol] 2.7 g/dL Normal [facility] Comment on above: Performed By: #### D IFF CBC, CK, PT, PTT, CMP, HS TROP ####[address] [address] [facility] Glucose [Mass/Vol] 102 mg/dL High 70-100 [facility] Comment on above: Result Comment: [facility] Glucose Reference Range is dependent on time and content of last meal. Glucose of more than 200 mg/dL in a nonstressed, ambulatory subject supports the diagnosis of Diabetes Mellitus. ADA recommended reference range Performed By: #### D IFF CBC, CK, PT, PTT, CMP, HS TROP ####[address] Potassium [Moles/Vol] 3.1 mmol/L Low 3.5-5.1 [facility] Comment on above: Performed By: #### D IFF CBC, CK, PT, PTT, CMP, HS TROP ####[place] [address] [place] [id number] [facility] Protein [Mass/Vol] 6.9 g/dL Normal 6.4-8.9 [facility] Comment on above: Performed By: #### D IFF CBC, CK, PT, PTT, CMP, HS TROP ####[address] Sodium [Moles/Vol] 140 mmol/L Normal 136-145 [facility] Comment on above: Performed By: #### D IFF CBC, CK, PT, PTT, CMP, HS TROP ####[place] [id number] [facility] Urea nitrogen [Mass/Vol] 26 mg/dL High 7-25 [facility] Comment on above: Performed By: #### D IFF CBC, CK, PT, PTT, CMP, HS TROP ####[place] [id number] [facility] Creatine Kinaseon 08-11-2024 CK [Catalytic activity/Vol] 305 U/L High 30-223 [facility] Comment on above: Performed By: #### D IFF CBC, CK, PT, PTT, CMP, HS TROP ####[place] [id number] [facility] Creatine kinase [Enzymatic a ctivity/volume] in Serum or PlasmaOrdered By: Francisco Duncan on 08-11-2024 CK [Catalytic activity/Vol] Creatine kinase [Enzymatic activity/volume] in Serum or Plasma High 30-223 [facility] Creatinine [Mass/volume] in Serum or PlasmaOrdered By: Francisco Duncan on 08-11-2024 Creatinine [Mass/Vol] Creatinine [Mass/v olume] in Serum or Plasma High 0.70-1.30 [facility] Diff and CBCon 08-11-2024 Anisocytosis Ql (Bld) Marked Normal [facility] Comment on above: Performed By: #### D IFF CBC, CK, PT, PTT, CMP, HS TROP ####[address] Band form neutrophils/100 WBC (Bld) 1 % Normal 0-5 [facility] Comment on above: Performed By: #### D IFF CBC, CK, PT, PTT, CMP, HS TROP ####[place] [id number] [facility] Basophils/100 WBC (Bld) 1 % Normal 0-2 [facility] Comment on above: Performed By: #### D IFF CBC, CK, PT, PTT, CMP, HS TROP ####[address] Crenated RBC Slight Normal [facility] Comment on above: Performed By: #### D IFF CBC, CK, PT, PTT, CMP, HS TROP ####[place] [id number] [facility] Eosinophils/100 WBC (Bld) 4 % High 1-3 [facility] Comment on above: Performed By: #### D IFF CBC, CK, PT, PTT, CMP, HS TROP ####[place] [id number] [facility] Erythrocyte distribution width (RBC) [Ratio] 20.1 % High 12.0-14.8 [facility] Comment on above: Performed By: #### D IFF CBC, CK, PT, PTT, CMP, HS TROP ####[address] [address] [facility] Hematocrit (Bld) [Volume fraction] 35.8 % Low 38.8-50.0 [facility] Comment on above: Performed By: #### D IFF CBC, CK, PT, PTT, CMP, HS TROP ####[address] Hemoglobin (Bld) [Mass/Vol] 11.6 g/dL Low 13.0-17.0 [facility] Comment on above: Performed By: #### D IFF CBC, CK, PT, PTT, CMP, HS TROP ####[address] Lymphocytes/100 WBC (Bld) 30 % Normal 18-42 [facility] Comment on above: Performed By: #### D IFF CBC, CK, PT, PTT, CMP, HS TROP ####[address] MCH (RBC) [Entitic mass] 21.8 pg Low 27.5-35.2 [facility] Comment on above: Performed By: #### D IFF CBC, CK, PT, PTT, CMP, HS TROP ####[address] MCV (RBC) [Entitic vol] 67.4 fL Low 83.5-101 [facility] Comment on above: Performed By: #### D IFF CBC, CK, PT, PTT, CMP, HS TROP ####[address] Mean Corpuscular HGB Conc 32.3 g/dL Low 32.5-35.6 [facility] Comment on above: Performed By: #### D IFF CBC, CK, PT, PTT, CMP, HS TROP ####[address] Microcytosis Moderate Normal [facility] Comment on above: Performed By: #### D IFF CBC, CK, PT, PTT, CMP, HS TROP ####[address] Monocytes/100 WBC (Bld) 17.90 % Normal 0.00-20.00 [facility] Comment on above: Performed By: #### D IFF CBC, CK, PT, PTT, CMP, HS TROP ####[place] [address] [place] [address] [facility] Monocytes/100 WBC (Bld) 5 % Normal 2-11 [facility] Comment on above: Performed By: #### D IFF CBC, CK, PT, PTT, CMP, HS TROP ####[place] [address] [place] [address] [facility] Ovalocytes Slight Normal [facility] Comment on above: Performed By: #### D IFF CBC, CK, PT, PTT, CMP, HS TROP ####[place] [address] [place] [address] [facility] Platelet Estimate Normal Normal Normal [facility] Comment on above: Performed By: #### D IFF CBC, CK, PT, PTT, CMP, HS TROP ####[place] [address] [place] [address] [facility] Platelet mean volume (Bld) [Entitic vol] 9.1 fL Normal 6.6-10.1 [facility] Comment on above: Result Comment: PERF ORMED BY:[place] [address] [address] [place], [place] [phone] MEDICAL DIRECTORMOKAREN CABAN M.D. Performed By: #### D IFF CBC, CK, PT, PTT, CMP, HS TROP ####[place] [address] [place] [address] [facility] Platelet Morphology Normal Normal Normal [facility] Comment on above: Result Comment: PERF ORMED BY:[place] [address] [place], [place] [phone] MEDICAL DIRECTORMIKE CABAN M.D. Performed By: #### D IFF CBC, CK, PT, PTT, CMP, HS TROP ####[place] [address] [place] [address] [facility] Platelets (Bld) [#/Vol] 209 10*3/uL Normal 150-450 [facility] Comment on above: Performed By: #### D IFF CBC, CK, PT, PTT, CMP, HS TROP ####[address] [address] [facility] Poikilocytosis Slight Normal [facility] Comment on above: Performed By: #### D IFF CBC, CK, PT, PTT, CMP, HS TROP ####[place] [address] [place] [address] [facility] Polychromasia Slight Normal [facility] Comment on above: Performed By: #### D IFF CBC, CK, PT, PTT, CMP, HS TROP ####[address] [address] [facility] RBC (Bld) [#/Vol] 5.32 10*6/uL Normal 3.90-5.60 [facility] Comment on above: Performed By: #### D IFF CBC, CK, PT, PTT, CMP, HS TROP ####[place] [id number] [facility] Segmented neutrophils/100 WBC (Bld) 60 % Normal 50-70 [facility] Comment on above: Performed By: #### D IFF CBC, CK, PT, PTT, CMP, HS TROP ####[place] [id number] [facility] WBC (Bld) [#/Vol] 10.7 10*3/uL High 4.1-10.5 [facility] Comment on above: Performed By: #### D IFF CBC, CK, PT, PTT, CMP, HS TROP ####[place] [id number] [facility] ECG 12 lead ECGon 08-11-2024 ECG 12 lead ECG Normal [facility] Eosinophils Auto (Bld) [#/Vo l]Ordered By: Francisco Duncan on 08-11-2024 Eosinophils (Bld) [#/Vol] Automated eosinophil count [facility] Eosinophils/100 WBC Auto (Bl d)Ordered By: Francisco Duncan on 08-11-2024 Eosinophils/100 WBC (Bld) Automated eosinophil % [facility] Eosinophils/100 WBC Manual c nt (Bld)Ordered By: Francisco Duncan on 08-11-2024 Eosinophils/100 WBC (Bld) Eosinophils/100 leukocytes in Blood by Manual count High 1-3 [facility] Erythrocyte distribution wid th Auto (RBC) [Ratio]Ordered By: Francisco Duncan on 08-11-2024 Erythrocyte distribution width (RBC) [Ratio] Erythrocyte distribution width [Ratio] by Automated count High 12.0-14.8 [facility] Erythrocyte morphology findi ng [Identifier] in BloodOrdered By: Francisco Duncan on 08-11-2024 RBC morphology finding Nom (Bld) RBC morphology [facility] Ferritinon 08-11-2024 Ferritin [Mass/Vol] 5.3 ng/mL Low 23.9-336.2 [facility] Comment on above: Order Comment: Comme nt add Result Comment: PERF ORMED BY:[address] [place], [place] [phone] MEDICAL DIRECTORMIKE CABAN M.D. Performed By: #### F E and TIBC, LILA ####[facility] [place] [address] [facility] Ferritin [Mass/volume] in Se rum or PlasmaOrdered By: Marge Andino on 08-11-2024 Ferritin [Mass/Vol] Ferritin [Mass/volum e] in Serum or Plasma Low 23.9-336.2 [facility] Folate [Mass/volume] in Seru m or PlasmaOrdered By: Marge Andino on 08-11-2024 Folate [Mass/Vol] Folate [Mass/volume] in Serum or Plasma >5.9 [facility] Comment on above: Folate reference ran ge: >5.9 ng/mlThe WHO technical consultation on folate and vitamin [id number] has determined that folate concentrations lessthan 4 ng/ml are considered deficient. Globulin Calc (S) [Mass/Vol] Ordered By: Francisco Duncan on 08-11-2024 Globulin (S) [Mass/Vol] Serum globulin measurement by calculation (mass/volume) [facility] Glucose Poct Glucometerson 0 08-11-2024 Commemt1 Glu2: Cleaned Meter Normal [facility] Comment on above: Result Comment: PERF ORMED BY:[place] [address] [address] [place], [place] [phone] MEDICAL DIRECTORMIKE CABAN M.D. Performed By: #### G LULS ####Point of Care testing, Glucose [Mass/Vol] 241 mg/dL Normal [facility] Comment on above: Result Comment: [facility] Glucose Reference Range is dependent on time and content of last meal. Glucose of more than 200 mg/dL in a nonstressed, ambulatory subject supports the diagnosis of Diabetes Mellitus. Performed By: #### G LULS ####Point of Care testing, Glucose [Mass/Vol] 244 mg/dL Normal [facility] Comment on above: Result Comment: [place] om Glucose Reference Range is dependent on time and content of last meal. Glucose of more than 200 mg/dL in a nonstressed, ambulatory subject supports the diagnosis of Diabetes Mellitus.PERFORMED BY:[place] [address] [place], [place] [phone] MEDICAL DIRECTORMIKE CABAN M.D. Performed By: #### G LULS ####Point of Care testing, Commemt1 Glu2: Cleaned Meter Normal [facility] Comment on above: Result Comment: PERF ORMED BY:[place] [address] [place], [place] [phone] MEDICAL DIRECTORMOKAREN CABAN M.D. Performed By: #### G LULS ####Point of Care testing, Glucose [Mass/Vol] 89 mg/dL Normal [facility] Comment on above: Result Comment: [place] Glucose Reference Range is dependent on time and content of last meal. Glucose of more than 200 mg/dL in a nonstressed, ambulatory subject supports the diagnosis of Diabetes Mellitus. Performed By: #### G LULS ####Point of Care testing, Glucose [Mass/Vol] 176 mg/dL Normal [facility] Comment on above: Result Comment: [place] Glucose Reference Range is dependent on time and content of last meal. Glucose of more than 200 mg/dL in a nonstressed, ambulatory subject supports the diagnosis of Diabetes Mellitus.PERFORMED BY:[facility] [place], [place] [phone] MEDICAL DIRECTORMIKE CABAN M.D. Performed By: #### G NELI ####Point of Care testing, Glucose [Mass/volume] in Ser um or PlasmaOrdered By: Francisco Duncan on 08-11-2024 Glucose [Mass/Vol] Glucose [Mass/volume ] in Serum or Plasma High 70-100 [facility] Comment on above: ADA recommended refe rence rangeRandom Glucose Reference Range is dependent on time and content of last meal. Glucose of more than 200 mg/dL in a nonstressed, ambulatory subject supports the diagnosis of Diabetes Mellitus. Glucose [Mass/volume] in Uri ne by Test stripOrdered By: Francisco Duncan on 08-11-2024 Glucose Test strip (U) [Mass/Vol] Glucose [Mass/volume] in Urine by Test strip High Normal [facility] Hematocrit Auto (Bld) [Volum e fraction]Ordered By: Francisco Duncan on 08-11-2024 Hematocrit (Bld) [Volume fraction] Hematocrit [Volume Fraction] of Blood by Automated count Low 38.8-50.0 [facility] Hemoglobin Test strip Ql (U) Ordered By: Francisco Duncan on 08-11-2024 Hemoglobin Ql (U) Hemoglobin [Presence ] in Urine by Test strip Negative [facility] Hemoglobin [Mass/volume] in BloodOrdered By: Francisco Duncan 08-11-2024 Hemoglobin (Bld) [Mass/Vol] Hemoglobin [Mass/volume] in Blood Low 13.0-17.0 [facility] INR in Platelet poor plasma by Coagulation assayOrdered By: Francisco Duncan on 08-11-2024 INR Coag (PPP) [Relative time] INR in Platelet poor plasma by Coagulation assay [facility] Comment on above: INR [...] with mechanical heart valves: 3 - 4.5 Iron [Mass/volume] in Serum or PlasmaOrdered By: aMrge Andino on 08-11-2024 Iron [Mass/Vol] Iron [Mass/volume] i n Serum or Plasma Low 50-212 [facility] Iron and TIBC Profileon - % Iron Saturation 7.0 % Low 20-50 [facility] Comment on above: Order Comment: Comme nt add Performed By: #### F E and TIBC, LILA ####[place] [id number] [place] [id number] [facility] Iron [Mass/Vol] 29 ug/dL Low 50-212 [facility] Comment on above: Order Comment: Comme nt add Performed By: #### F E and TIBC, LILA ####[place] [address] [place] [address] [facility] Total Iron Binding Capacity 414 ug/dL Normal 255-450 [facility] Comment on above: Order Comment: Comme nt add Performed By: #### F E and TIBC, LILA ####[place] [place] [address] [facility] Transferrin [Mass/Vol] 296 mg/dL Normal 203-362 [facility] Comment on above: Order Comment: Comme nt add Performed By: #### F E and TIBC, LILA ####[place] [id number] [facility] Ketones Test strip Ql (U)Ord ered By: Francisco Duncan on 08-11-2024 Ketones Ql (U) Ketones [Presence] i n Urine by Test strip Negative [facility] Leukocyte esterase [Presence ] in Urine by Test stripOrdered By: Francisco Duncan on 08-11-2024 Leukocyte esterase Test strip Ql (U) Leukocyte esterase [Presence] in Urine by Test strip Negative [facility] Leukocytes [#/volume] correc jorge for nucleated erythrocytes in Blood by Automated counOrdered By: Francisco Duncan on 08-11-2024 WBC corrected for nucl RBC Auto (Bld) [#/Vol] Leukocytes [#/volume] corrected for nucleated erythrocytes in Blood by Automated coun High 4.1-10.5 [facility] Lymphocytes Auto (Bld) [#/Vo l]Ordered By: Francisco Duncan on 08-11-2024 Lymphocytes (Bld) [#/Vol] Lymphocytes [#/volume] in Blood by Automated count [facility] Lymphocytes/100 WBC Auto (Bl d)Ordered By: Francisco Duncan on 08-11-2024 Lymphocytes/100 WBC (Bld) Lymphocytes/100 leukocytes in Blood by Automated count [facility] Lymphocytes/100 WBC Manual c nt (Bld)Ordered By: Francisco Duncan on 08-11-2024 Lymphocytes/100 WBC (Bld) Lymphocytes/100 leukocytes in Blood by Manual count 18-42 [facility] MCH Auto (RBC) [Entitic mass ]Ordered By: Francisco Duncan on 08-11-2024 MCH (RBC) [Entitic mass] MCH [Entitic mass] by Automated count Low 27.5-35.2 [facility] MCHC Auto (RBC) [Mass/Vol]Or dered By: Francisco Duncan on 08-11-2024 MCHC (RBC) [Mass/Vol] MCHC [Mass/volume] by Automated count Low 32.5-35.6 [facility] MCV Auto (RBC) [Entitic vol] Ordered By: Francisco Duncan on 08-11-2024 MCV (RBC) [Entitic vol] MCV [Entitic volume] by Automated count Low 83.5-101 [facility] Magnesiumon 08-11-2024 Magnesium [Mass/Vol] 0.5 mg/dL Off scale low 1.9-2.7 [facility] Comment on above: Order Comment: Comme nt add Result Comment: Crit ical Result S_MG: Called to and read back by: MONCHO FINK at: 08/11/2024 06:13:29 by: Performed By: #### T SH3, MG, [id number], [id number] ####[facility] [id number] [place] [id number] [facility] Magnesium [Mass/volume] in S ilia or PlasmaOrdered By: Marge Andino on 08-11-2024 Magnesium [Mass/Vol] Magnesium [Mass/vol ume] in Serum or Plasma Critically low 1.9-2.7 [facility] Comment on above: Critical Result S_MG : Called to and read back by: MONCHO FINK at: 08/11/2024 06:13:29 by:RANDOLPH Leong LM Ql (Bld)Ordere d By: Francisco Duncan on 08-11-2024 Microcytes Ql (Bld) Microcytes [Presence ] in Blood by Light microscopy [facility] Monocyte distribution width [Entitic volume] in Blood by AutomatedOrdered By: Francisco Duncan on 08-11-2024 Monocyte distribution width Auto (Bld) [Entitic vol] Monocyte distribution width [Entitic volume] in Blood by Automated 0.00-20.00 [facility] Monocytes Auto (Bld) [#/Vol] Ordered By: Francisco Duncan on 08-11-2024 Monocytes (Bld) [#/Vol] Automated blood monocyte count [facility] Monocytes/100 WBC Auto (Bld) Ordered By: Francisco Duncan on 08-11-2024 Monocytes/100 WBC (Bld) Automated monocyte % [facility] Monocytes/100 WBC Manual cnt (Bld)Ordered By: Francisco Duncan on 08-11-2024 Monocytes/100 WBC (Bld) Monocytes/100 leukocytes in Blood by Manual count 2-11 [facility] Neutrophils Auto (Bld) [#/Vo l]Ordered By: Francisco Duncan on 08-11-2024 Neutrophils (Bld) [#/Vol] Neutrophils [#/volume] in Blood by Automated count [facility] Neutrophils/100 WBC Auto (Bl d)Ordered By: Francisco Duncan on 08-11-2024 Neutrophils/100 WBC (Bld) Automated neutrophil % [facility] Nitrite Test strip Ql (U)Ord ered By: Francisco Duncan on 08-11-2024 Nitrite Ql (U) Nitrite [Presence] i n Urine by Test strip Negative [facility] No Panel InformationOrdered By: Kevon Viera on 08-11-2024 Bedside Glucose Comment Glu2: cleaned meter [facility] Glu2: cleaned meter [facility] No Panel InformationOrdered By: Francisco Duncan on 08-11-2024 Estimated GFR (CKD-EPI) 27.293 mL/Min [facility] Creatinine Clearance (Chem 33.32 [facility] Nucleated erythrocytes [Pres ence] in Blood by Automated countOrdered By: Francisco Duncan on 08-11-2024 Nucleated RBC Auto Ql (Bld) Nucleated erythrocytes [Presence] in Blood by Automated count [facility] Ovalocytes [Presence] in Blo od by Light microscopyOrdered By: Francisco Duncan on 08-11-2024 Ovalocytes LM Ql (Bld) Ovalocyte detection [facility] Parathyrin.intact [Mass/volu me] in Serum or PlasmaOrdered By: Francicso Duncan on 08-11-2024 Parathyrin.intact [Mass/Vol] Parathyrin.intact [Mass/volume] in Serum or Plasma [facility] Parathyroid Hormone Intacton 08-11-2024 Parathyroid Hormone Intact 38.3 pg/mL Normal [facility] Comment on above: Result Comment: PERF ORMED BY:[place] [address] [place], [place] [phone] MEDICAL DIRECTORMIKE CABAN M.D. Performed By: #### P TH, PHOS ####[address] [address] [facility] Partial Thromboplastin Timeo n 08-11-2024 aPTT Coag (Bld) [Time] 30.9 s Normal 25.1-36.5 Th e [facility] Comment on above: Result Comment: A he matocrit value greater than 55% may lead to inaccurate results in coagulation testing. Patients having hematocrit values >55% require a special collection tube for coagulation studies. Please contact the laboratory at [phone] for redraw instructions.PERFORMED BY:[place] [address] [place], [place] [phone] MEDICAL DIRECTORMIKE CABAN M.D. Performed By: #### D IFF CBC, CK, PT, PTT, CMP, HS TROP ####[facility] [id number] [place] [address] [facility] Phosphate [Mass/volume] in S ilia or PlasmaOrdered By: Francisco Duncan on 08-11-2024 Phosphate [Mass/Vol] Phosphate [Mass/vol ume] in Serum or Plasma High 2.5-4.5 [facility] Phosphoruson 08-11-2024 Phosphate [Mass/Vol] 4.8 mg/dL High 2.5-4.5 [facility] Comment on above: Result Comment: PERF ORMED BY:[facility] [place], [place] [phone] MEDICAL DIRECTORMIKE CABAN M.D. Performed By: #### P TH, PHOS ####[facility] [place] [address] [facility] Platelet adequacy [Presence] in Blood by Light microscopyOrdered By: Francisco Duncan on 08-11-2024 Platelets LM Ql (Bld) Platelet adequacy [Presence] in Blood by Light microscopy Normal [facility] Platelet mean volume Auto (B ld) [Entitic vol]Ordered By: Francisco Duncan on 08-11-2024 Platelet mean volume (Bld) [Entitic vol] Platelet mean volume [Entitic volume] in Blood by Automated count 6.6-10.1 [facility] Platelet morphology finding [Identifier] in BloodOrdered By: Francisco Duncan on 08-11-2024 Platelet morphology finding Nom (Bld) Platelet morphology finding [Identifier] in Blood Normal [facility] Platelets Auto (Bld) [#/Vol] Ordered By: Francisco Duncan on 08-11-2024 Platelets (Bld) [#/Vol] Platelets [#/volume] in Blood by Automated count 150-450 [facility] Poikilocytosis [Presence] in Blood by Light microscopyOrdered By: Francisco Duncan on 08-11-2024 Poikilocytosis LM Ql (Bld) Poikilocytosis [Presence] in Blood by Light microscopy [facility] Polychromasia [Presence] in Blood by Light microscopyOrdered By: Francisco Duncan on 08-11-2024 Polychromasia LM Ql (Bld) Polychromasia [Presence] in Blood by Light microscopy [facility] Potassium [Moles/volume] in Serum or PlasmaOrdered By: Francisco Duncan on 08-11-2024 Potassium [Moles/Vol] Potassium [Moles/v olume] in Serum or Plasma Low 3.5-5.1 [facility] Protein Test strip (U) [Mass /Vol]Ordered By: Francisco Duncan on 08-11-2024 Protein (U) [Mass/Vol] Protein [Mass/vol ume] in Urine by Test strip Negative [facility] Protein [Mass/volume] in Ser um or PlasmaOrdered By: Francisco Duncan on 08-11-2024 Protein [Mass/Vol] Protein [Mass/volume ] in Serum or Plasma 6.4-8.9 [facility] Prothrombin Time INRon 08-11 INR Coag (PPP) [Relative time] 1.2 {INR} Normal [facility] Comment on [...] valves: 3 - 4.5 Performed By: #### D IFF CBC, CK, PT, PTT, CMP, HS TROP ####[facility] [place] [id number] [facility] PT Coag (PPP) [Time] 13.8 s High 9.0-12.9 [facility] Comment on above: Result Comment: A he matocrit value greater than 55% may lead to inaccurate results in coagulation testing. Patients having hematocrit values >55% require a special collection tube for coagulation studies. Please contact the laboratory at [phone] for redraw instructions. Performed By: #### D IFF CBC, CK, PT, PTT, CMP, HS TROP ####[facility] [id number] [place] [id number] [facility] Prothrombin time (PT)Ordered By: Francisco Duncan on 08-11-2024 PT Coag (PPP) [Time] Prothrombin time (PT) High 9.0- 12.9 [facility] Comment on above: A hematocrit value g reater than 55% may lead to inaccurate results in coagulation testing. Patients having hematocrit values >55% require a special collection tube for coagulation studies. Please contact the laboratory at [phone] for redraw instructions. RBC Auto (Bld) [#/Vol]Ordere d By: Francisco Duncan on 08-11-2024 RBC (Bld) [#/Vol] Erythrocytes [#/volu me] in Blood by Automated count 3.90-5.60 [facility] Segmented neutrophils/100 WB C Manual cnt (Bld)Ordered By: Francisco Duncan on 08-11-2024 Segmented neutrophils/100 WBC (Bld) Manual blood segmented neutrophils/100 leukocytes 50-70 [facility] Serum or plasma albumin/glob ulin mass ratioOrdered By: Francisco Duncan on 08-11-2024 Albumin/Globulin [Mass ratio] Serum or plasma albumin/globulin mass ratio [facility] Serum or plasma anion gap de terminationOrdered By: Francisco Duncan on 08-11-2024 Anion gap [Moles/Vol] Serum or plasma an ion gap determination High 6.0-15.0 [facility] Serum or plasma iron binding capacity measurement (mass/volume)Ordered By: Marge Andino on 08-11-2024 Iron binding capacity [Mass/Vol] Iron binding capacity [Mass/volume] in Serum or Plasma 255-450 [facility] Serum or plasma iron saturat ion measurement (mass fraction)Ordered By: Marge Andino on 08-11-2024 Iron saturation [Mass fraction] Iron saturation [Mass Fraction] in Serum or Plasma Low 20-50 [facility] Sodium [Moles/volume] in Ser um or PlasmaOrdered By: Francisco Duncan on 08-11-2024 Sodium [Moles/Vol] Sodium [Moles/volume ] in Serum or Plasma 136-145 [facility] Specific gravity Test strip (U) [Rel density]Ordered By: Francisco Duncan on 08-11-2024 Specific gravity (U) [Rel density] Specific gravity of Urine by Test strip 1.001-1.03 0 [facility] Thyroid Stimulating Hormoneo n 08-11-2024 TSH Qn 4.18 m[IU]/L Normal 0.45-5.33 [facility] Comment on above: Order Comment: Comme nt add Performed By: #### T SH3, MG, [id number], [id number] ####[facility] [id number] [place] [id number] [facility] Thyrotropin [Units/volume] i n Serum or PlasmaOrdered By: Marge Andino on 08-11-2024 TSH Qn Thyrotropin [Units/volume] in Serum or Plasma 0.45-5.33 [facility] Transferrin [Mass/volume] in Serum or PlasmaOrdered By: Marge Andino on 08-11-2024 Transferrin [Mass/Vol] Transferrin [Mass /volume] in Serum or Plasma 203-362 [facility] Troponin I High Sensitivityo n 08-11-2024 Troponin I High Sensitivity 6 Normal 0-20 [facility] Comment on above: Result Comment: The Troponin units of report have been changed to meet the Chest Pain Accreditation requirement, element EC5.M1l2. Troponin units are changed from pg/ml to ng/L. Also, the decimal is removed and results are in whole numbers.PERFORMED BY:[facility] [place], [place] [phone] MEDICAL DIRECTORMIKE CABAN M.D. Performed By: #### D IFF CBC, CK, PT, PTT, CMP, HS TROP ####[facility] [place] [address] [facility] Troponin I.cardiac [Mass/vol ume] in Serum or Plasma by Detection limit <= 0.01 ng/Ordered By: Francisco Duncan on 08-11-2024 Troponin I.cardiac DL <= 0.01 ng/mL [Mass/Vol] Troponin I.cardiac [Mass/volume] in Serum or Plasma by Detection limit <= 0.01 ng/ 0-20 [facility] Comment on above: The Troponin units o f report have been changed to meet the Chest Pain Accreditation requirement, element EC5.M1l2. Troponin units are changed from pg/ml to ng/L. Also, the decimal is removed and results are in whole numbers. Urea nitrogen [Mass/volume] in Serum or PlasmaOrdered By: Francisco Duncan on 08-11-2024 Urea nitrogen [Mass/Vol] Urea nitrogen [Mass/volume] in Serum or Plasma High 7-25 [facility] Urinalysison 08-11-2024 Appearance (U) Clear Normal Clear [facility] Comment on above: Order Comment: Name Collection Type:: Voided Performed By: #### U A ####[address] [address] [place] Bilirubin,Urine Negative Normal Negative [facility] Comment on above: Order Comment: Name Collection Type:: Voided Performed By: #### U A ####[address] [address] [facility] Color (U) Light-Yellow Normal Yellow [facility] Comment on above: Order Comment: Name Collection Type:: Voided Performed By: #### U A ####[address] [address] [facility] Glucose Ql (U) 500 mg/dL High Normal [facility] Comment on above: Order Comment: Name Collection Type:: Voided Performed By: #### U A ####[address] [address] [facility] Ketones Ql (U) Negative Normal Negative [facility] Comment on above: Order Comment: Name Collection Type:: Voided Performed By: #### U A ####[address] [address] [facility] Leukocyte esterase Test strip Ql (U) Negative Normal Negative [facility] Comment on above: Order Comment: Name Collection Type:: Voided Performed By: #### U A ####[address] [address] [facility] Nitrite,Urine Negative Normal Negative [facility] Comment on above: Order Comment: Name Collection Type:: Voided Performed By: #### U A ####[address] [address] [facility] Occult Blood,Urine Negative Normal Negative [facility] Comment on above: Order Comment: Name Collection Type:: Voided Result Comment: PERF ORMED BY:[place] [address] [place], [place] [phone] MEDICAL DIRECTORMIKE CABAN M.D. Performed By: #### U A ####[address] [address] [facility] pH (U) 5.5 [pH] Normal 5.0-9.0 [facility] Comment on above: Order Comment: Name Collection Type:: Voided Performed By: #### U A ####[address] Protein,Urine Negative Normal Negative [facility] Comment on above: Order Comment: Name Collection Type:: Voided Performed By: #### U A ####[address] Specificy [place],Urine 1.024 Normal 1.001-1.03 0 [facility] Comment on above: Order Comment: Name Collection Type:: Voided Performed By: #### U A ####[address] Urobilinogen,Urine Normal Normal Normal [facility] Comment on above: Order Comment: Name Collection Type:: Voided Performed By: #### U A ####[address] Urobilinogen Test strip (U) [Mass/Vol]Ordered By: Francisco Duncan on 08-11-2024 Urobilinogen (U) [Mass/Vol] Urobilinogen [Mass/volume] in Urine by Test strip Normal [facility] Vit. B12/Folate Profileon Cobalamin (Vitamin B12) [Mass/Vol] 129 pg/mL Low 180-914 [facility] Comment on above: Order Comment: Comme nt add Performed By: #### T SH3, MG, [id number], [id number] ####[address] Folate 14.0 ng/mL Normal >5.9 [facility] Comment on above: Order Comment: Comme nt add Result Comment: Aure te reference range: >5.9 ng/ml The WHO technical consultation on folate and vitamin b12 deficiencies has determined that folate concentrations less than 4 ng/ml are considered deficient. Performed By: #### T SH3, MG, [id number], [id number] ####[facility] [id number] [place] [address] [facility] Vitamin B12 ser/plasOrdered By: Marge Andino on 08-11-2024 Cobalamin (Vitamin B12) [Mass/Vol] Vitamin B12 ser/plas Low 180-914 [facility] Vitamin D 25 Hydroxy Totalon 08-11-2024 Vitamin D 25 Hydroxy Total 15.0 ng/mL Low 30-100 [facility] Comment on above: Order Comment: Comme nt add Result Comment: SUBHA MIN D STATUS 25(OH)VITAMIN D RANGE (ng/mL) Deficient <20 Insufficient 20 to <30 Sufficient 30 to 100 Reference: Ibrahima Reyes, Kasey LONG, et al. Evaluation,treatment, and prevention of vitamin D deficiency; an Endocrine Society clinical practice guideline. JCEM. 2010; 96(7):1911-.PERFORMED BY:[address] [place], [place] [phone] MEDICAL DIRECTORMIKE CABAN M.D. Performed By: #### T SH3, MG, [id number], [id number] ####[facility] [id number] [place] [address] [facility] Vitamin D+Metabolites [Mass/ volume] in Serum or PlasmaOrdered By: Marge Andino on 08-11-2024 Vitamin D+Metabolites [Mass/Vol] Vitamin D+Metabolites [Mass/volume] in Serum or Plasma Low 30-100 [facility] Comment on above: VITAMIN D STATUS 25( [place])VITAMIN D RANGE (ng/mL) Deficient <20 Insufficient 20 to <30Sufficient 30 to 100Reference: Ibrahima Reyes, Kasey LONG, et al. Evaluation,treatment, and prevention of vitamin D deficiency; an Endocrine Society clinical practice guideline. JCEM. 2010; 96(7):1911-30. WBC Auto (Bld) [#/Vol]Ordere d By: Francisco Duncan on 08-11-2024 WBC (Bld) [#/Vol] Leukocytes [#/volume ] in Blood by Automated count High 4.1-10.5 [facility] X-ray reportOrdered By: Jose Lind on 08-11-2024 Study report [facility] [place] [address] [place] [address] XRay Report Signed Patient: Myra Pickard SR MR#: [id number] : 1965 Acct:[id number] Age/Sex: 59 / M ADM Date: 5 Loc: Room: [address] [place] [address] Type: ADM IN Attending Dr: Kevon Viera MD Copies to: MD Francisco Urbina Jr, MD~ Ordering Provider: Francisco Duncan Jr, MD Date of Service: 08/11/24 XR/XR chest 1V portable: Neuro Symptoms/Deficit Plain film chest Single view HISTORY: Left-sided weakness COMPARISON: 03/08/2024 FINDINGS: SUPPORT DEVICES: None POSTSURGICAL CHANGES: None HEART: Within normal limits PULMONARY CHAPIS: Within normal limits MEDIASTINUM: Unremarkable LUNGS AND PLEURA: No acute lung process, pleural effusion or pneumothorax identified. BONY STRUCTURES: Intact ADDITIONAL FINDINGS None XR/XR chest 1V portable IMPRESSION: No acute process. Impression dictated by: Sudeep Lind M.D.08/11/2024 10:06 AM Dictation Location: [place] [address] Transcribed By: [facility] 08/11/24 1006 Dictated By: Sudeep Lind DO 08/11/24 1006 Signed By: 08/11/24 1006 [facility] XR chest 1V portableon 08-11 XR chest 1V portable Normal [facility] aPTT in Platelet poor plasma by Coagulation assayOrdered By: Francisco Duncan on 08-11-2024 aPTT Coag (PPP) [Time] Activated partial thromboplastin time (aPTT) in platelet poor plasma by coagulation a 25.1-36.5 [facility] Comment on above: A hematocrit value g reater than 55% may lead to inaccurate results in coagulation testing. Patients having hematocrit values >55% require a special collection tube for coagulation studies. Please contact the laboratory at [phone] for redraw instructions. pH Test strip (U)Ordered By: Francisco Duncan on 08-11-2024 pH (U) pH of Urine by Test strip 5.0-9.0 [facility] Urology Office/Clinic Noteon 08-06-2024 Urology Office/Clinic Note Urology Office/Clinic Note Chief Complaint Patient is here for scrotal pain HPI Staff Patient is here for f/u to [facility] ER 07/24/24 due to scrotal pain. They did US which was negative and dx'd him with Tinea Cruris. Started on Clotrimazole cream. Pt reports no improvement in sx. States the discomfort is not superficial on the skin, it is deep in the scrotum/testicles. Constant, bilat, non-radiating, worse w movement and palpation x 1 week. Pain gets worse in the evening, that it brings patient to tears. He has tried ice and it does not help. Pain is 9 out of 1-10 scale. Patient denies any urination problems. Denies any pain, dysuria, blood. He does not get up at night to urinate. Review of Systems PHQ Score Initial Depression Screen Score: 0 SCORE No fever, chills, malaise, myalgia. No dysuria, pain w/ ejaculation, pain w/ BM. No blood in urine, ejaculate, or stool. No change in urgency/frequency, straining, stream changes. No discharge, odor, or change in color of urine. No perineal pain/pressure or suprapubic pain. Physical Exam Vitals & Measurements T: 36.1 ???C(Oral) HR: 80(Peripheral) RR: 18 BP: 118/69 HT: 72 in HT: 182 cm WT: 88.5 kg WT: 195.109 lb BMI: 26.72 General: nontoxic, NAD Mouth: moist mucosa Lungs: normal respiratory effort Cardio: regular rate, good distal perfusion Abdomen: nondistended, no suprapubic distention or tenderness, no CVA tenderness Neurologic: Grossly normal Skin: No rashes or suspicious lesions : diffuse mild tenderness bilat testicles without discrete nodule, edema, induration, fluctuance. Overlying skin is without erythema or warmth or lesions. Assessment/Plan Hx DM w Right BKA. 1. Orchitis (N45.2: Orchitis) [facility] ER 07/24/24 w sudden onset scrotal/groin pain. Labs nl. CT and US without torsion, hernia, obvious internal infection. Did show small R hydrocele, <1cm L epididymal cyst, and small Niranjan varicocele. MD reported mild erythema to scrotum c/w cutaneous fungal infection. Rx'd Lotrisone. No suspicion for cellulitis or Fourniers. Denies rash/redness, and I agree none on exam. No change w cream. Pain is deep, internal. Dc cream. Start po abx. Hx orchitis November 2022, presented exact same. Responded well to Doxy x 3 wks so we will use that now. Also requesting pain meds. Will provide limited rx Ultram. Video Tape Editor Cl 44. 08/02/2024 09:33:52 I certify that I have reviewed the OARRS report and all PDMP information in this chart. Follow-up With When Contact Information [facility] Additional Instructions: Only if needed/new problems arise. No scheduled appointment indicated at this time. Patient Education Orchitis Problem List/Past Medical History Ongoing Arthritis Asthma BPH with obstruction/lower urinary tract symptoms COPD type A Fibromyalgia Gross hematuria Head ache Heart attack Heart disease Heart murmur Hyperlipidemia Orchitis Restless leg Screening PSA (prostate specific antigen) Smoker Urinary retention Historical CHF (congestive heart failure) GERD [Gastroesophageal reflux disease] HTN [Hypertension] [place] (myocardial infarction) NIDDM Procedure/Surgical History BKA - [...] Tab, 81 mg= 1 tab(s), Oral, Daily doxycycline hyclate 100 mg Cap, 100 mg= 1 cap(s), Oral, BID furosemide 40 mg Tab, 40 mg= 1 [...] tablet, 10 mg= 1 tab(s), Oral, qAM Lipitor 80 mg Tab, 80 mg= 1 tab(s), Oral, Daily metformin 1000 mg Tab, 1000 mg= 1 tab(s), Oral, BID metoprolol tartrate 100 mg Tab, 50 mg= 0.5 tab(s), Oral, BID nicotine 14 mg/24 hr Transderm ER Film, TransDermal, Daily, Not taking NitroStat 0.4 mg Tab, 0.4 mg= 1 tab(s), SubLingual, q5min, PRN omeprazole 40 mg Cap-DR, 40 mg= 1 cap(s), Oral, Daily oxyCODONE 5 mg Tab, 10 mg= 2 tab(s), Oral, q6hr, PRN Plavix 75 mg Tab, 75 mg= 1 tab(s), Oral, Daily pregabalin 200 mg Cap, 200 mg= 1 cap(s), Oral, TID ProAir HFA, Inhalation, q6hr, PRN ropinirole 1 mg Tab, 1 mg= 1 tab(s), Oral, TID Spiriva 18 mcg Cap, 18 mcg= 1 cap(s), Inhalation, Daily tamsulosin 0.4 mg Cap, 0.4 mg= 1 cap(s), Oral, (more content not included)... Normal [facility] Comment on above: Result Comment: Elec tronically Signed By: RASHI KURTZ, MARYBEL Marcum.nile\Date and Time Signed: 08/06/24 12:28 EST Basophils Auto (Bld) [#/Vol] on 07-24-2024 Basophils (Bld) [#/Vol] Automated basophil count 0.0-0.1 [facility] Basophils/100 WBC Auto (Bld) on 07-24-2024 Basophils/100 WBC (Bld) Automated basophil % 0.2-2.0 [facility] Eosinophils/100 WBC Auto (Bl d)on 07-24-2024 Eosinophils/100 WBC (Bld) Automated eosinophil % 0.9-7.0 [facility] Erythrocyte distribution wid th Auto (RBC) [Ratio]on 07-24-2024 Erythrocyte distribution width (RBC) [Ratio] Erythrocyte distribution width [Ratio] by Automated count High 11.0-15.0 [facility] Estimated glomerular filtrat ion rate (GFR) non- Americanon 07-24-2024 GFR/1.73 sq M.predicted among non-blacks MDRD (S/P/Bld) [Vol rate/Area] Estimated glomerular filtration rate (GFR) non- Low >=60 mL/min/1.7 3m 2 [facility] Globulin Calc (S) [Mass/Vol] on 07-24-2024 Globulin (S) [Mass/Vol] Serum globulin measurement by calculation (mass/volume) [facility] Hematocrit Auto (Bld) [Volum e fraction]on 07-24-2024 Hematocrit (Bld) [Volume fraction] Hematocrit [Volume Fraction] of Blood by Automated count Low 42.0-54.0 [facility] Hemoglobin [Mass/volume] in Bloodon 07-24-2024 Hemoglobin (Bld) [Mass/Vol] Hemoglobin [Mass/volume] in Blood Low 14.0-18.0 [facility] Laboratory - Chemistry and C hemistry - challengeon 07-24-2024 Albumin [Mass/Vol] 3.3 g/dL Low 3.4-5.0 [facility] ALP [Catalytic activity/Vol] 111 U/L 46-116 [facility] ALT [Catalytic activity/Vol] 16 U/L 16-63 [facility] AST [Catalytic activity/Vol] 11 U/L Low 15-37 [facility] Bilirubin [Mass/Vol] 0.4 mg/dL 0.2-1.0 [facility] Calcium [Mass/Vol] 8.4 mg/dL Low 8.5-10.1 [facility] Chloride [Moles/Vol] 102 mmol/L 98-107 [facility] CO2 [Moles/Vol] 26.3 mmol/L 21.0-32.0 [facility] Creatinine [Mass/Vol] 2.28 mg/dL High 0.70-1.30 [facility] GFR/1.73 sq M.predicted MDRD (S/P/Bld) [Vol rate/Area] 36 mL/min/{1.73_m2} Low >=60 mL/min/1.7 3m 2 [facility] Glucose [Mass/Vol] 177 mg/dL High 74-106 [facility] Lactate [Moles/Vol] 1.8 mmol/L 0.4-2.0 [facility] Potassium [Moles/Vol] 3.4 mmol/L Low 3.5-5.1 [facility] Protein [Mass/Vol] 7.0 g/dL 6.4-8.2 [facility] Sodium [Moles/Vol] 139 mmol/L 136-145 [facility] Urea nitrogen [Mass/Vol] 22.0 mg/dL High 7.0-18.0 [facility] Urea nitrogen/Creatinine [Mass ratio] 9.6 mg/mg [facility] Laboratory - Hematology and Cell countson 07-24-2024 Immature granulocytes/100 WBC (Bld) 0.3 % 0.0-0.5 [facility] Leukocytes [#/volume] correc jorge for nucleated erythrocytes in Blood by Automated counon 07-24-2024 WBC corrected for nucl RBC Auto (Bld) [#/Vol] Leukocytes [#/volume] corrected for nucleated erythrocytes in Blood by Automated coun 4.0-11.0 [facility] Lymphocytes Auto (Bld) [#/Vo l]on 07-24-2024 Lymphocytes (Bld) [#/Vol] Lymphocytes [#/volume] in Blood by Automated count 1.2-3.8 [facility] Lymphocytes/100 WBC Auto (Bl d)on 07-24-2024 Lymphocytes/100 WBC (Bld) Lymphocytes/100 leukocytes in Blood by Automated count 20.5-60.0 [facility] MCH Auto (RBC) [Entitic mass ]on 07-24-2024 MCH (RBC) [Entitic mass] MCH [Entitic mass] by Automated count Low 25.9-34.0 [facility] MCHC Auto (RBC) [Mass/Vol]on 07-24-2024 MCHC (RBC) [Mass/Vol] MCHC [Mass/volume] by Automated count Low 29.9-35.2 [facility] MCV Auto (RBC) [Entitic vol] on 07-24-2024 MCV (RBC) [Entitic vol] MCV [Entitic volume] by Automated count Low 80.0-94.0 [facility] Monocytes Auto (Bld) [#/Vol] on 07-24-2024 Monocytes (Bld) [#/Vol] Automated blood monocyte count High 0.3-0.8 [facility] Monocytes/100 WBC Auto (Bld) on 07-24-2024 Monocytes/100 WBC (Bld) Automated monocyte % 1.7-12.0 [facility] Neutrophils Auto (Bld) [#/Vo l]on 07-24-2024 Neutrophils (Bld) [#/Vol] Neutrophils [#/volume] in Blood by Automated count 1.4-6.5 [facility] Neutrophils/100 WBC Auto (Bl d)on 07-24-2024 Neutrophils/100 WBC (Bld) Automated neutrophil % 43.0-75.0 [facility] No Panel Informationon 07-24 Eosinophils # (Auto) 0.4 10 3/uL 0.0-0.7 [facility] Immature Granulocyte # (Auto) 0.03 10 3/uL 0.00-0.03 [facility] Platelet mean volume Auto (B ld) [Entitic vol]on 07-24-2024 Platelet mean volume (Bld) [Entitic vol] Platelet mean volume [Entitic volume] in Blood by Automated count 9.5-13.5 [facility] Platelets Auto (Bld) [#/Vol] on 07-24-2024 Platelets (Bld) [#/Vol] Platelets [#/volume] in Blood by Automated count 150-450 [facility] RBC Auto (Bld) [#/Vol]on RBC (Bld) [#/Vol] Erythrocytes [#/volu me] in Blood by Automated count 4.70-6.10 [facility] Serum or plasma albumin/glob ulin mass ratioon 07-24-2024 Albumin/Globulin [Mass ratio] Serum or plasma albumin/globulin mass ratio [facility] Serum or plasma anion gap de terminationon 07-24-2024 Anion gap [Moles/Vol] Serum or plasma an ion gap determination [facility] Reminderson 07-05-2024 Reminders Reminders From: Clair Valverde To: EU - Administrative; Sent: 07/05/2024 09:08:37 EST Show up: 02/02/2025 10:08:00 EDT Subject: 1 yr f/u w/psa Due Date/Time: 05/27/2025 09:08:00 EST Reminder/Recall Pt needs scheduled for 1yr f/u w/psa w/PRW in May 2025. Normal [facility] PSA Totalon 05-28-2024 Prostate specific Ag [Mass/Vol] 1.0 ng/mL Normal 0.1-3.5 [facility] Comment on above: Result Comment: The concentration of PSA determined by different manufacturers can vary due to differences in assay methods and reagent specificity. Values obtained from different assay methods cannot be used interchangeably. The methodology used for this result was chemiluminescence using [employer]'s Access Hybritech PSA reagent. Performed By: #### 1 [id number] #### [facility] [address] [place] [address] Ambulatory Visit Summaryon 1 07-28-2023 Ambulatory Visit Summary Ambulatory Visit Summary MATTEO CHRISTIAN, MYRA Daniel :1965 Visit Date:05/27/2024 Ambulatory Visit Instructions Your [...] Where: [facility] [address], [place] [address] [phone] Medications What How Much When Instructions Unchanged tamsulosin (tamsulosin 0.4 mg Cap) 1 Capsules By Mouth 2 times a day Pickup at [facility]/pharmacy #[id number] Unchanged albuterol (ProAir HFA) Inhalation Every 6 [...] concerns Unchanged (more content not included)... Normal [facility] Urology Office/Clinic Noteon 12-23-2024 Urology Office/Clinic Note Urology Office/Clinic Note Chief [...] urination. -Cont Tamsulosin bid. Refills sent to [facility]. 2. Screening PSA (prostate specific antigen) (Z12.5: [...] Blum, URL [facility] [address], [place] [address] [phone] Additional Instructions: 1 yr Patient Education Benign Prostatic Hyperplasia ISharri, personally scribed for Dr. Rowe on 05/27/2024 16:01:18. . Documentation recorded by the scribeSharri, accurately [...] [Hypertension] [place] (myocardial infarction) NIDDM Procedure/Surgical History BKA - [...] Daily me (more content not included)... Normal [facility] Comment on above: Result Comment: Elec tronically Signed By: Yeyo ROWE MD\.br\Date and Time Signed: 05/27/24 16:02 EST\.br\Electronically Co-Signed By: Sharri Mora\.br\Date and Time Co-Signed: 05/27/24 16:01 EST Glucose Glucometer (BldC) [M ass/Vol]Ordered By: Mike Burleson on 04-23-2024 Glucose [Mass/Vol] Capillary blood gluc ose measurement by glucometer (mass/volume) [facility] Comment on above: Random Glucose Refer ence Range is dependent on time and content of last meal. Glucose of more than 200 mg/dL in a nonstressed, ambulatory subject supports the diagnosis of Diabetes Mellitus. Glucose Poct Glucometerson 1 06-23-2023 Commemt1 Glu2: Cleaned Meter Normal [facility] Comment on above: Result Comment: PERF ORMED BY:[facility] [place], [place] [phone] MEDICAL DIRECTORMIKE CABAN M.D. Performed By: #### G LULS ####Point of Care testing, Glucose [Mass/Vol] 212 mg/dL Normal [facility] Comment on above: Result Comment: [place] Glucose Reference Range is dependent on time and content of last meal. Glucose of more than 200 mg/dL in a nonstressed, ambulatory subject supports the diagnosis of Diabetes Mellitus. Performed By: #### G LULS ####Point of Care testing, Guy 04-23-2024 L Normal [facility] No Panel InformationOrdered By: Mike Burleson on 04-23-2024 Bedside Glucose Comment Glu2: cleaned meter [facility] HbA1c HPLC (Bld) [Mass fract ion]on 04-04-2024 HbA1c (Bld) [Mass fraction] Hemoglobin A1c/Hemoglobin.total in Blood by HPLC [facility] Alanine aminotransferase [En zymatic activity/volume] in Serum or PlasmaOrdered By: João Powell on 03-13-2024 ALT [Catalytic activity/Vol] 38 U/L Normal [facility] Comment on above: Performed By: #### C MP, PHOS, CBC, MG ####[facility] [id number] [place] [address] [facility] ALT [Catalytic activity/Vol] Alanine aminotransferase [Enzymatic activity/volume] in Serum or Plasma [facility] Albumin [Mass/volume] in Ser um or Plasma by Bromocresol green (BCG) dye binding methoOrdered By: João Powell on 03-13-2024 Albumin BCG dye [Mass/Vol] 3.6 g/dL 3.5-5.7 [facility] Albumin BCG dye [Mass/Vol] Albumin [Mass/volume] in Serum or Plasma by Bromocresol green (BCG) dye binding metho 3.5-5.7 [facility] Alkaline phosphatase [Enzyma tic activity/volume] in Serum or PlasmaOrdered By: João Powell on 03-13-2024 ALP [Catalytic activity/Vol] 313 U/L High 34-104 [facility] Comment on above: Performed By: #### C MP, PHOS, CBC, MG ####[address] ALP [Catalytic activity/Vol] Alkaline phosphatase [Enzymatic activity/volume] in Serum or Plasma High 34-104 [facility] Aspartate aminotransferase [ Enzymatic activity/volume] in Serum or PlasmaOrdered By: João Powell on 03-13-2024 AST [Catalytic activity/Vol] 28 U/L Normal 39 [facility] Comment on above: Performed By: #### C MP, PHOS, CBC, MG ####[address] AST [Catalytic activity/Vol] Aspartate aminotransferase [Enzymatic activity/volume] in Serum or Plasma [facility] Automated basophil %Ordered By: João Powell on 03-13-2024 Basophils/100 WBC (Bld) 1.2 % Normal . [facility] Comment on above: Performed By: #### C MP, PHOS, CBC, MG ####[address] Automated basophil countOrde red By: João Powell on 03-13-2024 Basophils (Bld) [#/Vol] 0.1 10*3/uL Normal 0.0-0.2 [facility] Comment on above: Result Comment: PERF ORMED BY:[address] [place], [place] [phone] MEDICAL BRISA LOBATO M.D. Performed By: #### C MP, PHOS, CBC, MG ####[address] Automated blood monocyte cou ntOrdered By: João Powell on 03-13-2024 Monocytes (Bld) [#/Vol] 0.9 10*3/uL High 0.0-0.8 [facility] Comment on above: Performed By: #### C MP, PHOS, CBC, MG ####[address] [place] [address] [place] Automated eosinophil %Ordere d By: João Powell on 03-13-2024 Eosinophils/100 WBC (Bld) 3.0 % Normal . [facility] Comment on above: Performed By: #### C MP, PHOS, CBC, MG ####[address] Automated eosinophil countOr dered By: João Powell on 03-13-2024 Eosinophils (Bld) [#/Vol] 0.2 10*3/uL Normal 0.0-0.45 [facility] Comment on above: Performed By: #### C MP, PHOS, CBC, MG ####[address] Automated monocyte %Ordered By: João Powell on 03-13-2024 Monocytes/100 WBC (Bld) 14.4 % Normal . [facility] Comment on above: Performed By: #### C MP, PHOS, CBC, MG ####[address] Automated neutrophil %Ordere d By: João Powell on 03-13-2024 Neutrophils/100 WBC (Bld) 66.7 % Normal . [facility] Comment on above: Performed By: #### C MP, PHOS, CBC, MG ####[address] Basophils Auto (Bld) [#/Vol] Ordered By: João Powell on 03-13-2024 Basophils (Bld) [#/Vol] Automated basophil count 0.0-0.2 [facility] Basophils/100 WBC Auto (Bld) Ordered By: João Powell on 03-13-2024 Basophils/100 WBC (Bld) Automated basophil % . [facility] Bilirubin.total [Mass/volume ] in Serum or PlasmaOrdered By: João Powell on 03-13-2024 Bilirubin [Mass/Vol] 0.9 mg/dL Normal 0.3-1.0 [facility] Comment on above: Performed By: #### C MP, PHOS, CBC, MG ####[facility] [id number] [place] [address] [facility] Bilirubin [Mass/Vol] Bilirubin.total [Mass/volume] in Serum or Plasma 0.3-1.0 [facility] Calcium [Mass/volume] in Ser um or PlasmaOrdered By: João Powell on 03-13-2024 Calcium [Mass/Vol] 9.1 mg/dL Normal 8.6-10.3 [facility] Comment on above: Performed By: #### C MP, PHOS, CBC, MG ####[facility] [id number] [place] [address] [facility] Calcium [Mass/Vol] Calcium [Mass/volume ] in Serum or Plasma 8.6-10.3 [facility] Capillary blood glucose ashley urement by glucometer (mass/volume)Ordered By: Rembreto Ervin on 03-13-2024 Glucose [Mass/Vol] 155 mg/dL Normal [facility] Comment on above: Random Glucose Refer ence Range is dependent on time and content of last meal. Glucose of more than 200 mg/dL in a nonstressed, ambulatory subject supports the diagnosis of Diabetes Mellitus. Result Comment: [place] Glucose Reference Range is dependent on time and content of last meal. Glucose of more than 200 mg/dL in a nonstressed, ambulatory subject supports the diagnosis of Diabetes Mellitus.PERFORMED BY:[facility] [place], [place] [phone] MEDICAL DIRECTORCLIFFORD LOBATO M.D. Performed By: #### G LULS ####Point of Care testing, Carbon dioxide, total [Moles /volume] in Serum or PlasmaOrdered By: João Powell on 03-13-2024 CO2 [Moles/Vol] 23.9 mmol/L Normal 21.0-31.0 [facility] Comment on above: Performed By: #### C MP, PHOS, CBC, MG ####[facility] [id number] [place] [address] [facility] CO2 [Moles/Vol] Carbon dioxide, tota l [Moles/volume] in Serum or Plasma 21.0-31.0 [facility] Chloride [Moles/volume] in S ilia or PlasmaOrdered By: João Powell on 03-13-2024 Chloride [Moles/Vol] 101 mmol/L Normal 98-107 [facility] Comment on above: Performed By: #### C MP, PHOS, CBC, MG ####[place] [id number] [address] Chloride [Moles/Vol] Chloride [Moles/vol ume] in Serum or Plasma 98-107 [facility] Complete Blood Count Auto Di ffon 03-13-2024 Mean Corpuscular HGB Conc 31.7 g/dL Low 32.5-35.6 [facility] Comment on above: Performed By: #### C MP, PHOS, CBC, MG ####[address] NRBC% 0.1 /100{WBC} Normal 0-0.5 [facility] Comment on above: Performed By: #### C MP, PHOS, CBC, MG ####[place] [id number] [place] [id number] [facility] Comprehensive Metabolic Pane guy 03-13-2024 Albumin [Mass/Vol] 3.6 g/dL Normal 3.5-5.7 [facility] Comment on above: Performed By: #### C MP, PHOS, CBC, MG ####[address] Creatinine Clr Calc Pharmacy 56.79 Normal [facility] Comment on above: Performed By: #### C MP, PHOS, CBC, MG ####[place] [address] [place] [id number] [facility] GFR/1.73 sq M.predicted MDRD (S/P/Bld) [Vol rate/Area] 53.205 mL/min/{1.73_m2} Normal [facility] Comment on above: Performed By: #### C MP, PHOS, CBC, MG ####[place] [id number] [facility] Creatinine [Mass/volume] in Serum or PlasmaOrdered By: João Powell on 03-13-2024 Creatinine [Mass/Vol] 1.51 mg/dL High 0.70-1.30 [facility] Comment on above: Performed By: #### C MP, PHOS, CBC, MG ####[place] [address] [address] Creatinine [Mass/Vol] Creatinine [Mass/v olume] in Serum or Plasma High 0.70-1.30 [facility] Eosinophils Auto (Bld) [#/Vo l]Ordered By: João Powell on 03-13-2024 Eosinophils (Bld) [#/Vol] Automated eosinophil count 0.0-0.45 [facility] Eosinophils/100 WBC Auto (Bl d)Ordered By: João Powell on 03-13-2024 Eosinophils/100 WBC (Bld) Automated eosinophil % . [facility] Erythrocyte distribution wid th Auto (RBC) [Ratio]Ordered By: João Powell on 03-13-2024 Erythrocyte distribution width (RBC) [Ratio] Erythrocyte distribution width [Ratio] by Automated count High 12.0-14.8 [facility] Erythrocyte distribution wid th [Ratio] by Automated countOrdered By: João Powell on 03-13-2024 Erythrocyte distribution width (RBC) [Ratio] 24.5 % High 12.0-14.8 [facility] Comment on above: Performed By: #### C MP, PHOS, CBC, MG ####[address] Erythrocytes [#/volume] in B lood by Automated countOrdered By: João Powell on 03-13-2024 RBC (Bld) [#/Vol] 4.12 10*6/uL Normal 3.90-5.60 [facility] Comment on above: Performed By: #### C MP, PHOS, CBC, MG ####[place] [id number] Globulin Calc (S) [Mass/Vol] Ordered By: João Powell on 03-13-2024 Globulin (S) [Mass/Vol] Serum globulin measurement by calculation (mass/volume) [facility] Glucose Glucometer (BldC) [M ass/Vol]Ordered By: Remberto Ervin on 03-13-2024 Glucose [Mass/Vol] Capillary blood gluc ose measurement by glucometer (mass/volume) [facility] Comment on above: Random Glucose Refer ence Range is dependent on time and content of last meal. Glucose of more than 200 mg/dL in a nonstressed, ambulatory subject supports the diagnosis of Diabetes Mellitus. Glucose Poct Glucometerson 1 Glucose [Mass/Vol] 162 mg/dL Normal [facility] Comment on above: Result Comment: [place] Glucose Reference Range is dependent on time and content of last meal. Glucose of more than 200 mg/dL in a nonstressed, ambulatory subject supports the diagnosis of Diabetes Mellitus.PERFORMED BY:[facility] [place], [place] [phone] MEDICAL DIRECTORCLIFFORD LOBATO M.D. Performed By: #### G LULS ####Point of Care testing, Glucose [Mass/volume] in Ser um or PlasmaOrdered By: João Powell on 03-13-2024 Glucose [Mass/Vol] 149 mg/dL High 70-100 [facility] Comment on above: ADA recommended refe rence rangeRandom Glucose Reference Range is dependent on time and content of last meal. Glucose of more than 200 mg/dL in a nonstressed, ambulatory subject supports the diagnosis of Diabetes Mellitus. Result Comment: [place] om Glucose Reference Range is dependent on time and content of last meal. Glucose of more than 200 mg/dL in a nonstressed, ambulatory subject supports the diagnosis of Diabetes Mellitus. ADA recommended reference range Performed By: #### C MP, PHOS, CBC, MG ####[facility] [id number] [place] [address] [facility] Glucose [Mass/Vol] Glucose [Mass/volume ] in Serum or Plasma High 70-100 [facility] Comment on above: ADA recommended [...] of Blood by Automated count Low 38.8-50.0 [facility] Hematocrit [Volume Fraction] of Blood by Automated countOrdered By: João Powell on 03-13-2024 Hematocrit (Bld) [Volume fraction] 29.9 % Low 38.8-50.0 [facility] Comment on above: Performed By: #### C MP, PHOS, CBC, MG ####[facility] [facility] [id number] Hemoglobin [Mass/volume] in BloodOrdered By: João Powell on 03-13-2024 Hemoglobin (Bld) [Mass/Vol] 9.5 g/dL Low 13.0-17.0 [facility] Comment on above: Performed By: #### C MP, PHOS, CBC, MG ####[address] Hemoglobin (Bld) [Mass/Vol] Hemoglobin [Mass/volume] in Blood Low 13.0-17.0 [facility] Leukocytes [#/volume] correc jorge for nucleated erythrocytes in Blood by Automated counOrdered By: João Powell on 03-13-2024 WBC corrected for nucl RBC Auto (Bld) [#/Vol] 6.0 10*3/uL 4.1-10.5 [facility] WBC corrected for nucl RBC Auto (Bld) [#/Vol] Leukocytes [#/volume] corrected for nucleated erythrocytes in Blood by Automated coun 4.1-10.5 [facility] Leukocytes [#/volume] in Blo od by Automated countOrdered By: João Powell on 03-13-2024 WBC (Bld) [#/Vol] 6.0 10*3/uL Normal 4.1-10.5 [facility] Comment on above: Performed By: #### C MP, PHOS, CBC, MG ####[facility] [id number] Lymphocytes Auto (Bld) [#/Vo l]Ordered By: João Powell on 03-13-2024 Lymphocytes (Bld) [#/Vol] Lymphocytes [#/volume] in Blood by Automated count Low 1.00-4.8 [facility] Lymphocytes [#/volume] in Bl ood by Automated countOrdered By: João Powell on 03-13-2024 Lymphocytes (Bld) [#/Vol] 0.9 10*3/uL Low 1.00-4.8 [facility] Comment on above: Performed By: #### C MP, PHOS, CBC, MG ####[address] Lymphocytes/100 WBC Auto (Bl d)Ordered By: João Powell on 03-13-2024 Lymphocytes/100 WBC (Bld) Lymphocytes/100 leukocytes in Blood by Automated count . [facility] Lymphocytes/100 leukocytes i n Blood by Automated countOrdered By: João Powell on 03-13-2024 Lymphocytes/100 WBC (Bld) 14.7 % Normal . [facility] Comment on above: Performed By: #### C MP, PHOS, CBC, MG ####[address] MCH Auto (RBC) [Entitic mass ]Ordered By: João Powell on 03-13-2024 MCH (RBC) [Entitic mass] MCH [Entitic mass] by Automated count Low 27.5-35.2 [facility] MCH [Entitic mass] by Automa jorge countOrdered By: João Powell on 03-13-2024 MCH (RBC) [Entitic mass] 23.0 pg Low 27.5-35.2 [facility] Comment on above: Performed By: #### C MP, PHOS, CBC, MG ####[address] MCHC Auto (RBC) [Mass/Vol]Or dered By: João Powell on 03-13-2024 MCHC (RBC) [Mass/Vol] 31.7 g/dL Low 32.5-35.6 [facility] MCHC (RBC) [Mass/Vol] MCHC [Mass/volume] by Automated count Low 32.5-35.6 [facility] MCV Auto (RBC) [Entitic vol] Ordered By: João Powell on 03-13-2024 MCV (RBC) [Entitic vol] MCV [Entitic volume] by Automated count Low 83.5-101 [facility] MCV [Entitic volume] by Auto mated countOrdered By: João Powell on 03-13-2024 MCV (RBC) [Entitic vol] 72.6 fL Low 83.5-101 [facility] Comment on above: Performed By: #### C MP, PHOS, CBC, MG ####[address] [place] [address] [facility] Magnesium [Mass/volume] in S ilia or PlasmaOrdered By: João Powell on 03-13-2024 Magnesium [Mass/Vol] 1.7 mg/dL Low 1.9-2.7 [facility] Comment on above: Result Comment: PERF ORMED BY:[address] [place], [place] [phone] MEDICAL DIRECTORCLIFFORD LOBATO M.D. Performed By: #### C MP, PHOS, CBC, MG ####[address] [place] [address] [facility] Magnesium [Mass/Vol] Magnesium [Mass/vol ume] in Serum or Plasma Low 1.9-2.7 [facility] Monocytes Auto (Bld) [#/Vol] Ordered By: João Powell on 03-13-2024 Monocytes (Bld) [#/Vol] Automated blood monocyte count High 0.0-0.8 [facility] Monocytes/100 WBC Auto (Bld) Ordered By: João Powell on 03-13-2024 Monocytes/100 WBC (Bld) Automated monocyte % . [facility] Neutrophils Auto (Bld) [#/Vo l]Ordered By: João Powell on 03-13-2024 Neutrophils (Bld) [#/Vol] Neutrophils [#/volume] in Blood by Automated count 1.8-7.7 [facility] Neutrophils [#/volume] in Bl ood by Automated countOrdered By: João Powell on 03-13-2024 Neutrophils (Bld) [#/Vol] 4.0 10*3/uL Normal 1.8-7.7 [facility] Comment on above: Performed By: #### C MP, PHOS, CBC, MG ####[facility] [id number] [place] [address] [place] Neutrophils/100 WBC Auto (Bl d)Ordered By: João Powell on 03-13-2024 Neutrophils/100 WBC (Bld) Automated neutrophil % . [facility] No Panel InformationOrdered By: João Powell on 03-13-2024 Estimated GFR (CKD-EPI) 53.205 mL/Min [facility] Creatinine Clearance (Chem 56.79 [facility] 53.205 mL/Min [facility] 56.79 [facility] Nucleated erythrocytes [Pres ence] in Blood by Automated countOrdered By: João Powell on 03-13-2024 Nucleated RBC Auto Ql (Bld) 0.1 /100{WBC} 0-0.5 [facility] Nucleated RBC Auto Ql (Bld) Nucleated erythrocytes [Presence] in Blood by Automated count 0-0.5 [facility] Phosphate [Mass/volume] in S ilia or PlasmaOrdered By: João Powell on 03-13-2024 Phosphate [Mass/Vol] 3.0 mg/dL Normal 2.5-4.5 [facility] Comment on above: Performed By: #### C MP, PHOS, CBC, MG ####[facility] [id number] [place] [address] [facility] Phosphate [Mass/Vol] Phosphate [Mass/vol ume] in Serum or Plasma 2.5-4.5 [facility] Platelet mean volume Auto (B ld) [Entitic vol]Ordered By: João Powell on 03-13-2024 Platelet mean volume (Bld) [Entitic vol] Platelet mean volume [Entitic volume] in Blood by Automated count 6.6-10.1 [facility] Platelet mean volume [Entiti c volume] in Blood by Automated countOrdered By: João Powell on 03-13-2024 Platelet mean volume (Bld) [Entitic vol] 8.9 fL Normal 6.6-10.1 [facility] Comment on above: Performed By: #### C MP, PHOS, CBC, MG ####[address] [address] [facility] Platelets Auto (Bld) [#/Vol] Ordered By: João Powell on 03-13-2024 Platelets (Bld) [#/Vol] Platelets [#/volume] in Blood by Automated count 150-450 [facility] Platelets [#/volume] in Bloo d by Automated countOrdered By: João Powell on 03-13-2024 Platelets (Bld) [#/Vol] 197 10*3/uL Normal 150-450 [facility] Comment on above: Performed By: #### C MP, PHOS, CBC, MG ####[place] [id number] [facility] Potassium [Moles/volume] in Serum or PlasmaOrdered By: João Powell on 03-13-2024 Potassium [Moles/Vol] 3.9 mmol/L Normal 3.5-5.1 [facility] Comment on above: Performed By: #### C MP, PHOS, CBC, MG ####[id number] [facility] Potassium [Moles/Vol] Potassium [Moles/v olume] in Serum or Plasma 3.5-5.1 [facility] Protein [Mass/volume] in Ser um or PlasmaOrdered By: João Powell on 03-13-2024 Protein [Mass/Vol] 7.5 g/dL Normal 6.4-8.9 [facility] Comment on above: Performed By: #### C MP, PHOS, CBC, MG ####[address] [address] [facility] Protein [Mass/Vol] Protein [Mass/volume ] in Serum or Plasma 6.4-8.9 [facility] RBC Auto (Bld) [#/Vol]Ordere d By: João Powell on 03-13-2024 RBC (Bld) [#/Vol] Erythrocytes [#/volu me] in Blood by Automated count 3.90-5.60 [facility] Serum globulin measurement b y calculation (mass/volume)Ordered By: João Powell on 03-13-2024 Globulin (S) [Mass/Vol] 3.9 g/dL Normal [facility] Comment on above: Performed By: #### C MP, PHOS, CBC, MG ####[place] [id number] Serum or plasma albumin/glob ulin mass ratioOrdered By: João Powell on 03-13-2024 Albumin/Globulin [Mass ratio] 0.9 {ratio} [facility] Comment on above: Performed By: #### C MP, PHOS, CBC, MG ####[address] Albumin/Globulin [Mass ratio] Serum or plasma albumin/globulin mass ratio [facility] Serum or plasma anion gap de terminationOrdered By: João Powell on 03-13-2024 Anion gap [Moles/Vol] 13.0 mmol/L Normal 6.0-15.[address] [facility] Comment on above: Performed By: #### C MP, PHOS, CBC, MG ####[address] Anion gap [Moles/Vol] Serum or plasma an ion gap determination 6.0-15.0 [facility] Sodium [Moles/volume] in Ser um or PlasmaOrdered By: João Powell on 03-13-2024 Sodium [Moles/Vol] 134 mmol/L Low 136-145 [facility] Comment on above: Performed By: #### C MP, PHOS, CBC, MG ####[address] Sodium [Moles/Vol] Sodium [Moles/volume ] in Serum or Plasma Low 136-145 [facility] Urea nitrogen [Mass/volume] in Serum or PlasmaOrdered By: João Powell on 03-13-2024 Urea nitrogen [Mass/Vol] 18 mg/dL Normal 12-27 [facility] Comment on above: Performed By: #### C MP, PHOS, CBC, MG ####[address] Urea nitrogen [Mass/Vol] Urea nitrogen [Mass/volume] in Serum or Plasma 12-27 [facility] WBC Auto (Bld) [#/Vol]Ordere d By: João Powell on 03-13-2024 WBC (Bld) [#/Vol] Leukocytes [#/volume ] in Blood by Automated count 4.1-10.5 [facility] Complete Blood Count Auto Di ffon 03-12-2024 Basophils (Bld) [#/Vol] 0.0 10*3/uL Normal 0.0-0.2 [facility] Comment on above: Result Comment: PERF ORMED BY:[address] [place], [place] [phone] MEDICAL DIRECTORCLIFFORD LOBATO M.D. Performed By: #### C BC, CMP, PHOS, MG ####[address] Basophils/100 WBC (Bld) 0.8 % Normal . [facility] Comment on above: Performed By: #### C BC, CMP, PHOS, MG ####[address] Eosinophils (Bld) [#/Vol] 0.1 10*3/uL Normal 0.0-0.45 [facility] Comment on above: Performed By: #### C BC, CMP, PHOS, MG ####[address] Eosinophils/100 WBC (Bld) 1.7 % Normal . [facility] Comment on above: Performed By: #### C BC, CMP, PHOS, MG ####[address] Erythrocyte distribution width (RBC) [Ratio] 24.0 % High 12.0-14.8 [facility] Comment on above: Performed By: #### C BC, CMP, PHOS, MG ####[address] Hematocrit (Bld) [Volume fraction] 28.0 % Low 38.8-50.0 [facility] Comment on above: Performed By: #### C BC, CMP, PHOS, MG ####[address] Hemoglobin (Bld) [Mass/Vol] 9.0 g/dL Low 13.0-17.0 [facility] Comment on above: Performed By: #### C BC, CMP, PHOS, MG ####[address] Lymphocytes (Bld) [#/Vol] 0.7 10*3/uL Low 1.00-4.8 [facility] Comment on above: Performed By: #### C BC, CMP, PHOS, MG ####[address] Lymphocytes/100 WBC (Bld) 12.6 % Normal . [facility] Comment on above: Performed By: #### C BC, CMP, PHOS, MG ####[address] MCH (RBC) [Entitic mass] 23.1 pg Low 27.5-35.2 [facility] Comment on above: Performed By: #### C BC, CMP, PHOS, MG ####[address] MCV (RBC) [Entitic vol] 72.1 fL Low 83.5-101 [facility] Comment on above: Performed By: #### C BC, CMP, PHOS, MG ####[address] Mean Corpuscular HGB Conc 32.1 g/dL Low 32.5-35.6 [facility] Comment on above: Performed By: #### C BC, CMP, PHOS, MG ####[address] Monocytes (Bld) [#/Vol] 1.0 10*3/uL High 0.0-0.8 [facility] Comment on above: Performed By: #### C BC, CMP, PHOS, MG ####[address] Monocytes/100 WBC (Bld) 16.2 % Normal . [facility] Comment on above: Performed By: #### C BC, CMP, PHOS, MG ####[address] Neutrophils (Bld) [#/Vol] 4.0 10*3/uL Normal 1.8-7.7 [facility] Comment on above: Performed By: #### C BC, CMP, PHOS, MG ####[address] Neutrophils/100 WBC (Bld) 68.7 % Normal . [facility] Comment on above: Performed By: #### C BC, CMP, PHOS, MG ####[address] NRBC% 0.1 /100{WBC} Normal 0-0.5 [facility] Comment on above: Performed By: #### C BC, CMP, PHOS, MG ####[address] Platelet mean volume (Bld) [Entitic vol] 8.8 fL Normal 6.6-10.1 [facility] Comment on above: Performed By: #### C BC, CMP, PHOS, MG ####[address] Platelets (Bld) [#/Vol] 191 10*3/uL Normal 150-450 [facility] Comment on above: Performed By: #### C BC, CMP, PHOS, MG ####[address] RBC (Bld) [#/Vol] 3.89 10*6/uL Low 3.90-5.60 [facility] Comment on above: Performed By: #### C BC, CMP, PHOS, MG ####[address] WBC (Bld) [#/Vol] 5.9 10*3/uL Normal 4.1-10.5 [facility] Comment on above: Performed By: #### C BC, CMP, PHOS, MG ####[address] Comprehensive Metabolic Pane guy 03-12-2024 Albumin [Mass/Vol] 3.5 g/dL Normal 3.5-5.7 [facility] Comment on above: Performed By: #### C BC, CMP, PHOS, MG ####[address] Albumin/Globulin [Mass ratio] 0.9 {ratio} Normal [facility] Comment on above: Performed By: #### C BC, CMP, PHOS, MG ####[address] ALP [Catalytic activity/Vol] 328 U/L High 34-104 [facility] Comment on above: Performed By: #### C BC, CMP, PHOS, MG ####[address] ALT [Catalytic activity/Vol] 46 U/L Normal 7-52 [facility] Comment on above: Performed By: #### C BC, CMP, PHOS, MG ####[address] Anion gap [Moles/Vol] 14.2 mmol/L Normal 6.0-15.0 [facility] Comment on above: Performed By: #### C BC, CMP, PHOS, MG ####[address] AST [Catalytic activity/Vol] 34 U/L Normal 13-39 [facility] Comment on above: Performed By: #### C BC, CMP, PHOS, MG ####[address] Bilirubin [Mass/Vol] 1.0 mg/dL Normal 0.3-1.0 [facility] Comment on above: Performed By: #### C BC, CMP, PHOS, MG ####[address] Calcium [Mass/Vol] 9.1 mg/dL Normal 8.6-10.3 [facility] Comment on above: Performed By: #### C BC, CMP, PHOS, MG ####[address] Chloride [Moles/Vol] 104 mmol/L Normal 98-107 [facility] Comment on above: Performed By: #### C BC, CMP, PHOS, MG ####[address] CO2 [Moles/Vol] 21.7 mmol/L Normal 21.0-31.0 [facility] Comment on above: Performed By: #### C BC, CMP, PHOS, MG ####[place] [id number] [facility] Creatinine [Mass/Vol] 1.46 mg/dL High 0.70-1.30 [facility] Comment on above: Performed By: #### C BC, CMP, PHOS, MG ####[address] Creatinine Clr Calc Pharmacy 58.74 Normal [facility] Comment on above: Performed By: #### C BC, CMP, PHOS, MG ####[place] [id number] [place] GFR/1.73 sq M.predicted MDRD (S/P/Bld) [Vol rate/Area] 55.398 mL/min/{1.73_m2} Normal [facility] Comment on above: Performed By: #### C BC, CMP, PHOS, MG ####[address] [place] [id number] [facility] Globulin (S) [Mass/Vol] 3.7 g/dL Normal [facility] Comment on above: Performed By: #### C BC, CMP, PHOS, MG ####[address] [place] [id number] [facility] Glucose [Mass/Vol] 167 mg/dL High 70-100 [facility] Comment on above: Result Comment: [facility] Glucose Reference Range is dependent on time and content of last meal. Glucose of more than 200 mg/dL in a nonstressed, ambulatory subject supports the diagnosis of Diabetes Mellitus. ADA recommended reference range Performed By: #### C BC, CMP, PHOS, MG ####[place] [id number] [facility] Potassium [Moles/Vol] 3.9 mmol/L Normal 3.5-5.1 [facility] Comment on above: Performed By: #### C BC, CMP, PHOS, MG ####[place] [id number] [facility] Protein [Mass/Vol] 7.2 g/dL Normal 6.4-8.9 [facility] Comment on above: Performed By: #### C BC, CMP, PHOS, MG ####[place] [id number] [facility] Sodium [Moles/Vol] 136 mmol/L Normal 136-145 [facility] Comment on above: Performed By: #### C BC, CMP, PHOS, MG ####[address] [place] [id number] [facility] Urea nitrogen [Mass/Vol] 19 mg/dL Normal 7-25 [facility] Comment on above: Performed By: #### C BC, CMP, PHOS, MG ####[place] [id number] [facility] Glucose Poct Glucometerson 1 Glucose [Mass/Vol] 174 mg/dL Normal [facility] Comment on above: Result Comment: [facility] Glucose Reference Range is dependent on time and content of last meal. Glucose of more than 200 mg/dL in a nonstressed, ambulatory subject supports the diagnosis of Diabetes Mellitus.PERFORMED BY:[address] [place], [place] [phone] MEDICAL DIRECTORCLIFFORD LOBATO M.D. Performed By: #### G LULS ####Point of Care testing, Glucose [Mass/Vol] 216 mg/dL Normal [facility] Comment on above: Result Comment: [facility] Glucose Reference Range is dependent on time and content of last meal. Glucose of more than 200 mg/dL in a nonstressed, ambulatory subject supports the diagnosis of Diabetes Mellitus.PERFORMED BY:[address] [place]DarrianMaryCHAL[place], [place] [phone] MEDICAL BRISA LOBATO M.D. Performed By: #### G LULS ####Point of Care testing, Glucose [Mass/Vol] 230 mg/dL Normal [facility] Comment on above: Result Comment: [facility] Glucose Reference Range is dependent on time and content of last meal. Glucose of more than 200 mg/dL in a nonstressed, ambulatory subject supports the diagnosis of Diabetes Mellitus.PERFORMED BY:[address] [place], [place] [phone] MEDICAL BRISA LOBATO M.D. Performed By: #### G LULS ####Point of Care testing, Glucose [Mass/Vol] 179 mg/dL Normal [facility] Comment on above: Result Comment: [facility] Glucose Reference Range is dependent on time and content of last meal. Glucose of more than 200 mg/dL in a nonstressed, ambulatory subject supports the diagnosis of Diabetes Mellitus.PERFORMED BY:[address] [place]Mary[place], [place] [phone] MEDICAL BRISA LOBATO M.D. Performed By: #### G LULS ####Point of Care testing, Magnesiumon 03-12-2024 Magnesium [Mass/Vol] 2.0 mg/dL Normal 1.9-2.7 [facility] Comment on above: Result Comment: PERF ORMED BY:[address] [place], [place] [phone] MEDICAL DIRECTORCLIFFORD LOBATO M.D. Performed By: #### C BC, CMP, PHOS, MG ####[address] Phosphoruson 03-12-2024 Phosphate [Mass/Vol] 2.5 mg/dL Normal 2.5-4.5 [facility] Comment on above: Performed By: #### C BC, CMP, PHOS, MG ####[address] Complete Blood Count Auto Di ffon 03-11-2024 Basophils (Bld) [#/Vol] 0.1 10*3/uL Normal 0.0-0.2 [facility] Comment on above: Result Comment: PERF ORMED BY:[address] [place], [place] [phone] MEDICAL DIRECTORCLIFFORD LOBATO M.D. Performed By: #### C BC, MG, PHOS, CMP ####[address] Basophils/100 WBC (Bld) 0.6 % Normal . [facility] Comment on above: Performed By: #### C BC, MG, PHOS, CMP ####[address] Eosinophils (Bld) [#/Vol] 0.2 10*3/uL Normal 0.0-0.45 [facility] Comment on above: Performed By: #### C BC, MG, PHOS, CMP ####[address] Eosinophils/100 WBC (Bld) 2.7 % Normal . [facility] Comment on above: Performed By: #### C BC, MG, PHOS, CMP ####[address] Erythrocyte distribution width (RBC) [Ratio] 24.0 % High 12.0-14.8 [facility] Comment on above: Performed By: #### C BC, MG, PHOS, CMP ####[address] Hematocrit (Bld) [Volume fraction] 27.6 % Low 38.8-50.0 [facility] Comment on above: Performed By: #### C BC, MG, PHOS, CMP ####[address] Hemoglobin (Bld) [Mass/Vol] 8.8 g/dL Low 13.0-17.0 [facility] Comment on above: Performed By: #### C BC, MG, PHOS, CMP ####[address] Lymphocytes (Bld) [#/Vol] 0.5 10*3/uL Low 1.00-4.8 [facility] Comment on above: Performed By: #### C BC, MG, PHOS, CMP ####[address] Lymphocytes/100 WBC (Bld) 5.3 % Normal . [facility] Comment on above: Performed By: #### C BC, MG, PHOS, CMP ####[address] MCH (RBC) [Entitic mass] 23.1 pg Low 27.5-35.2 [facility] Comment on above: Performed By: #### C BC, MG, PHOS, CMP ####[address] MCV (RBC) [Entitic vol] 72.1 fL Low 83.5-101 [facility] Comment on above: Performed By: #### C BC, MG, PHOS, CMP ####[address] Mean Corpuscular HGB Conc 32.0 g/dL Low 32.5-35.6 [facility] Comment on above: Performed By: #### C BC, MG, PHOS, CMP ####[address] Monocytes (Bld) [#/Vol] 0.9 10*3/uL High 0.0-0.8 [facility] Comment on above: Performed By: #### C BC, MG, PHOS, CMP ####[address] Monocytes/100 WBC (Bld) 10.5 % Normal . [facility] Comment on above: Performed By: #### C BC, MG, PHOS, CMP ####[address] Neutrophils (Bld) [#/Vol] 7.3 10*3/uL Normal 1.8-7.7 [facility] Comment on above: Performed By: #### C BC, MG, PHOS, CMP ####[address] Neutrophils/100 WBC (Bld) 80.9 % Normal . [facility] Comment on above: Performed By: #### C BC, MG, PHOS, CMP ####[address] NRBC% 0.0 /100{WBC} Normal 0-0.5 [facility] Comment on above: Performed By: #### C BC, MG, PHOS, CMP ####[address] Platelet mean volume (Bld) [Entitic vol] 8.8 fL Normal 6.6-10.1 [facility] Comment on above: Performed By: #### C BC, MG, PHOS, CMP ####[address] Platelets (Bld) [#/Vol] 201 10*3/uL Normal 150-450 [facility] Comment on above: Performed By: #### C BC, MG, PHOS, CMP ####[address] RBC (Bld) [#/Vol] 3.83 10*6/uL Low 3.90-5.60 [facility] Comment on above: Performed By: #### C BC, MG, PHOS, CMP ####[address] WBC (Bld) [#/Vol] 9.0 10*3/uL Normal 4.1-10.5 [facility] Comment on above: Performed By: #### C BC, MG, PHOS, CMP ####[address] Comprehensive Metabolic Pane guy 03-11-2024 Albumin [Mass/Vol] 3.5 g/dL Normal 3.5-5.7 [facility] Comment on above: Performed By: #### C BC, MG, PHOS, CMP ####[address] Albumin/Globulin [Mass ratio] 0.9 {ratio} Normal [facility] Comment on above: Performed By: #### C BC, MG, PHOS, CMP ####[address] ALP [Catalytic activity/Vol] 367 U/L High 34-104 [facility] Comment on above: Performed By: #### C BC, MG, PHOS, CMP ####[address] ALT [Catalytic activity/Vol] 59 U/L High 7-52 [facility] Comment on above: Performed By: #### C BC, MG, PHOS, CMP ####[address] Anion gap [Moles/Vol] 12.6 mmol/L Normal 6.0-15.0 [facility] Comment on above: Performed By: #### C BC, MG, PHOS, CMP ####[place] [id number] [place] [id number] [facility] AST [Catalytic activity/Vol] 52 U/L High 13-39 [facility] Comment on above: Performed By: #### C BC, MG, PHOS, CMP ####[place] [id number] [facility] Bilirubin [Mass/Vol] 1.5 mg/dL High 0.3-1.0 [facility] Comment on above: Result Comment: Samp les from patients who have taken Naproxen have shown spurious elevation in Total Bilirubin levels. A metabolite of Naproxen, O-desmethylnaproxen, has been shown to interfere with the Allan-Aleksandra method for measuring Total Bilirubin. Performed By: #### C BC, MG, PHOS, CMP ####[address] Calcium [Mass/Vol] 8.8 mg/dL Normal 8.6-10.3 [facility] Comment on above: Performed By: #### C BC, MG, PHOS, CMP ####[place] [id number] [facility] Chloride [Moles/Vol] 104 mmol/L Normal 98-107 [facility] Comment on above: Performed By: #### C BC, MG, PHOS, CMP ####[place] [id number] [facility] CO2 [Moles/Vol] 23.0 mmol/L Normal 21.0-31.0 [facility] Comment on above: Performed By: #### C BC, MG, PHOS, CMP ####[place] [id number] [facility] Creatinine [Mass/Vol] 1.70 mg/dL High 0.70-1.30 [facility] Comment on above: Performed By: #### C BC, MG, PHOS, CMP ####[place] [id number] [facility] Creatinine Clr Calc Pharmacy 50.45 Normal [facility] Comment on above: Performed By: #### C BC, MG, PHOS, CMP ####[address] GFR/1.73 sq M.predicted MDRD (S/P/Bld) [Vol rate/Area] 46.151 mL/min/{1.73_m2} Normal [facility] Comment on above: Performed By: #### C BC, MG, PHOS, CMP ####[address] Globulin (S) [Mass/Vol] 3.7 g/dL Normal [facility] Comment on above: Performed By: #### C BC, MG, PHOS, CMP ####[address] Glucose [Mass/Vol] 150 mg/dL High 70-100 [facility] Comment on above: Result Comment: [facility] Glucose Reference Range is dependent on time and content of last meal. Glucose of more than 200 mg/dL in a nonstressed, ambulatory subject supports the diagnosis of Diabetes Mellitus. ADA recommended reference range Performed By: #### C BC, MG, PHOS, CMP ####[address] Potassium [Moles/Vol] 3.6 mmol/L Normal 3.5-5.1 [facility] Comment on above: Performed By: #### C BC, MG, PHOS, CMP ####[address] Protein [Mass/Vol] 7.2 g/dL Normal 6.4-8.9 [facility] Comment on above: Performed By: #### C BC, MG, PHOS, CMP ####[address] Sodium [Moles/Vol] 136 mmol/L Normal 136-145 [facility] Comment on above: Performed By: #### C BC, MG, PHOS, CMP ####[address] Urea nitrogen [Mass/Vol] 17 mg/dL Normal 7-25 [facility] Comment on above: Performed By: #### C BC, MG, PHOS, CMP ####[address] [address] [facility] Glucose Poct Glucometerson 1 Glucose [Mass/Vol] 193 mg/dL Normal [facility] Comment on above: Result Comment: [place] Glucose Reference Range is dependent on time and content of last meal. Glucose of more than 200 mg/dL in a nonstressed, ambulatory subject supports the diagnosis of Diabetes Mellitus.PERFORMED BY:[address] [place], [place] [phone] MEDICAL DIRECTORCLIFFORD LOBATO M.D. Performed By: #### G LULS ####Point of Care testing, Commemt1 Glu2: Cleaned Meter Normal [facility] Comment on above: Result Comment: PERF ORMED BY:[address] [place], [place] [phone] MEDICAL DIRECTORCLIFFORD LOBATO M.D. Performed By: #### G LULS ####Point of Care testing, Glucose [Mass/Vol] 156 mg/dL Normal [facility] Comment on above: Result Comment: [place] [facility] Glucose Reference Range is dependent on time and content of last meal. Glucose of more than 200 mg/dL in a nonstressed, ambulatory subject supports the diagnosis of Diabetes Mellitus. Performed By: #### G LULS ####Point of Care testing, Commemt1 Glu2: Cleaned Meter Normal [facility] Comment on above: Result Comment: PERF ORMED BY:[address] [place], [place] [phone] MEDICAL DIRECTORCLIFFORD LOBATO M.D. Performed By: #### G LULS ####Point of Care testing, Glucose [Mass/Vol] 185 mg/dL Normal [facility] Comment on above: Result Comment: [place] Glucose Reference Range is dependent on time and content of last meal. Glucose of more than 200 mg/dL in a nonstressed, ambulatory subject supports the diagnosis of Diabetes Mellitus. Performed By: #### G LULS ####Point of Care testing, Glucose [Mass/Vol] 178 mg/dL Normal [facility] Comment on above: Result Comment: [facility] Glucose Reference Range is dependent on time and content of last meal. Glucose of more than 200 mg/dL in a nonstressed, ambulatory subject supports the diagnosis of Diabetes Mellitus.PERFORMED BY:[place] [address] [address] [place], [place] [phone] MEDICAL DIRECTORCLIFFORD LOBATO M.D. Performed By: #### G LULS ####Point of Care testing, Hep C Ab wRfx to Qnt PCRon 1 Hepatitis C Virus Antibody Non-Reactive Normal Non Reactive [facility] Comment on above: Performed By: #### H CV RX PCR ####[facility] , Interpretation Hepatitis C Comment Normal . [facility] Comment on above: Result Comment: Not infected with HCV unless early or acute infection is suspected (which may be delayed in an immunocompromised individual), or other evidence exists to indicate HCV infection. Performed at: - [facility] [id number] Medical Imaging Director: Uriel Borrero PhD, Phone: [phone] BY:[place] [address] [address] [place], [place] [phone] MEDICAL DIRECTORCLIFFORD LOBATO M.D. Performed By: #### H CV RX PCR ####[facility] , Hepatitis C virus IgG Ab [Pr esence] in Serum or Plasma by ImmunoassayOrdered By: Mike Burleson on 03-11-2024 HCV IgG IA Ql Non-Reactive Non Reactive [facility] HCV IgG IA Ql Hepatitis C virus Ig G Ab [Presence] in Serum or Plasma by Immunoassay Non Reactive [facility] MR abdomen wo/w conon 2023 MR abdomen wo/w con Normal [facility] Magnesiumon 03-11-2024 Magnesium [Mass/Vol] 1.8 mg/dL Low 1.9-2.7 [facility] Comment on above: Result Comment: PERF ORMED BY:[place] [address] [address] [place], [place] [phone] MEDICAL DIRECTORCLIFFORD LOBATO M.D. Performed By: #### C BC, MG, PHOS, CMP ####[address] [address] [facility] No Panel InformationOrdered By: João Powell on 03-11-2024 Bedside Glucose Comment Glu2: cleaned meter [facility] Glu2: cleaned meter [facility] No Panel InformationOrdered By: Mike Burleson on 03-11-2024 Hepatitis C Interpretation Comment . [facility] Comment on above: Not infected with HC V unless early or acute infection issuspected (which may be delayed in an immunocompromisedindividual), or other evidence exists to indicate HCVinfection.Performed at: - [facility] [id number] Director: Uriel Borrero PhD, Phone: [phone] Comment . [facility] Phosphoruson 03-11-2024 Phosphate [Mass/Vol] 3.4 mg/dL Normal 2.5-4.5 [facility] Comment on above: Performed By: #### C BC, MG, PHOS, CMP ####[place] [id number] [facility] US liveron 03-11-2024 US liver Normal [facility] Complete Blood Count Auto Di ffon 03-10-2024 Basophils (Bld) [#/Vol] 0.0 10*3/uL Normal 0.0-0.2 [facility] Comment on above: Result Comment: PERF ORMED BY:[address] [place], [place] [phone] MEDICAL DIRECTORCLIFFORD LOBATO M.D. Performed By: #### C MP, MG, PHOS, GGT, CBC ####[place] [id number] [facility] Basophils/100 WBC (Bld) 0.3 % Normal . [facility] Comment on above: Performed By: #### C MP, MG, PHOS, GGT, CBC ####[address] Eosinophils (Bld) [#/Vol] 0.1 10*3/uL Normal 0.0-0.45 [facility] Comment on above: Performed By: #### C MP, MG, PHOS, GGT, CBC ####[address] Eosinophils/100 WBC (Bld) 0.8 % Normal . [facility] Comment on above: Performed By: #### C MP, MG, PHOS, GGT, CBC ####[address] Erythrocyte distribution width (RBC) [Ratio] 23.4 % High 12.0-14.8 [facility] Comment on above: Performed By: #### C MP, MG, PHOS, GGT, CBC ####[address] Hematocrit (Bld) [Volume fraction] 25.8 % Low 38.8-50.0 [facility] Comment on above: Performed By: #### C MP, MG, PHOS, GGT, CBC ####[address] Hemoglobin (Bld) [Mass/Vol] 8.4 g/dL Low 13.0-17.0 [facility] Comment on above: Performed By: #### C MP, MG, PHOS, GGT, CBC ####[address] Lymphocytes (Bld) [#/Vol] 0.7 10*3/uL Low 1.00-4.8 [facility] Comment on above: Performed By: #### C MP, MG, PHOS, GGT, CBC ####[address] Lymphocytes/100 WBC (Bld) 4.9 % Normal . [facility] Comment on above: Performed By: #### C MP, MG, PHOS, GGT, CBC ####[address] MCH (RBC) [Entitic mass] 23.1 pg Low 27.5-35.2 [facility] Comment on above: Performed By: #### C MP, MG, PHOS, GGT, CBC ####[address] MCV (RBC) [Entitic vol] 71.2 fL Low 83.5-101 [facility] Comment on above: Performed By: #### C MP, MG, PHOS, GGT, CBC ####[address] Mean Corpuscular HGB Conc 32.5 g/dL Normal 32.5-35.6 [facility] Comment on above: Performed By: #### C MP, MG, PHOS, GGT, CBC ####[address] Monocytes (Bld) [#/Vol] 1.5 10*3/uL High 0.0-0.8 [facility] Comment on above: Performed By: #### C MP, MG, PHOS, GGT, CBC ####[address] Monocytes/100 WBC (Bld) 10.6 % Normal . [facility] Comment on above: Performed By: #### C MP, MG, PHOS, GGT, CBC ####[address] Neutrophils (Bld) [#/Vol] 11.4 10*3/uL High 1.8-7.7 [facility] Comment on above: Performed By: #### C MP, MG, PHOS, GGT, CBC ####[address] Neutrophils/100 WBC (Bld) 83.4 % Normal . [facility] Comment on above: Performed By: #### C MP, MG, PHOS, GGT, CBC ####[address] NRBC% 0.2 /100{WBC} Normal 0-0.5 [facility] Comment on above: Performed By: #### C MP, MG, PHOS, GGT, CBC ####[address] Platelet mean volume (Bld) [Entitic vol] 8.9 fL Normal 6.6-10.1 [facility] Comment on above: Performed By: #### C MP, MG, PHOS, GGT, CBC ####[address] Platelets (Bld) [#/Vol] 205 10*3/uL Normal 150-450 [facility] Comment on above: Performed By: #### C MP, MG, PHOS, GGT, CBC ####[address] RBC (Bld) [#/Vol] 3.62 10*6/uL Low 3.90-5.60 [facility] Comment on above: Performed By: #### C MP, MG, PHOS, GGT, CBC ####[address] WBC (Bld) [#/Vol] 13.7 10*3/uL High 4.1-10.5 [facility] Comment on above: Performed By: #### C MP, MG, PHOS, GGT, CBC ####[address] Comprehensive Metabolic Pane guy 03-10-2024 Albumin [Mass/Vol] 3.4 g/dL Low 3.5-5.7 [facility] Comment on above: Performed By: #### C MP, MG, PHOS, GGT, CBC ####[address] Albumin/Globulin [Mass ratio] 1.0 {ratio} Normal [facility] Comment on above: Performed By: #### C MP, MG, PHOS, GGT, CBC ####[facility] [place] [id number] [facility] ALP [Catalytic activity/Vol] 426 U/L High 34-104 [facility] Comment on above: Performed By: #### C MP, MG, PHOS, GGT, CBC ####[facility] [place] 6[address]70 [facility] ALT [Catalytic activity/Vol] 78 U/L High 7-52 [facility] Comment on above: Performed By: #### C MP, MG, PHOS, GGT, CBC ####[place] [address] [place] [id number] [facility] Anion gap [Moles/Vol] 14.5 mmol/L Normal 6.0-15.0 [facility] Comment on above: Performed By: #### C MP, MG, PHOS, GGT, CBC ####[place] [address] [place] [id number] [facility] AST [Catalytic activity/Vol] 92 U/L High 13-39 [facility] Comment on above: Performed By: #### C MP, MG, PHOS, GGT, CBC ####[address] Bilirubin [Mass/Vol] 2.2 mg/dL High 0.3-1.0 [facility] Comment on above: Result Comment: Samp les from patients who have taken Naproxen have shown spurious elevation in Total Bilirubin levels. A metabolite of Naproxen, O-desmethylnaproxen, has been shown to interfere with the Jendrassik-Grof method for measuring Total Bilirubin. Performed By: #### C MP, MG, PHOS, GGT, CBC ####[place] [address] [place] [phone] [facility] Calcium [Mass/Vol] 8.3 mg/dL Low 8.6-10.3 [facility] Comment on above: Performed By: #### C MP, MG, PHOS, GGT, CBC ####[place] [address] [place] [id number] [facility] Chloride [Moles/Vol] 102 mmol/L Normal 98-107 [facility] Comment on above: Performed By: #### C MP, MG, PHOS, GGT, CBC ####[address] CO2 [Moles/Vol] 21.8 mmol/L Normal 21.0-31.0 [facility] Comment on above: Performed By: #### C MP, MG, PHOS, GGT, CBC ####[address] Creatinine [Mass/Vol] 1.81 mg/dL High 0.70-1.30 [facility] Comment on above: Performed By: #### C MP, MG, PHOS, GGT, CBC ####[address] Creatinine Clr Calc Pharmacy 47.38 Normal [facility] Comment on above: Performed By: #### C MP, MG, PHOS, GGT, CBC ####[address] GFR/1.73 sq M.predicted MDRD (S/P/Bld) [Vol rate/Area] 42.806 mL/min/{1.73_m2} Normal [facility] Comment on above: Performed By: #### C MP, MG, PHOS, GGT, CBC ####[address] Globulin (S) [Mass/Vol] 3.3 g/dL Normal [facility] Comment on above: Performed By: #### C MP, MG, PHOS, GGT, CBC ####[address] Glucose [Mass/Vol] 141 mg/dL High 70-100 [facility] Comment on above: Result Comment: [facility] Glucose Reference Range is dependent on time and content of last meal. Glucose of more than 200 mg/dL in a nonstressed, ambulatory subject supports the diagnosis of Diabetes Mellitus. ADA recommended reference range Performed By: #### C MP, MG, PHOS, GGT, CBC ####[address] Potassium [Moles/Vol] 3.3 mmol/L Low 3.5-5.1 [facility] Comment on above: Performed By: #### C MP, MG, PHOS, GGT, CBC ####[address] Protein [Mass/Vol] 6.7 g/dL Normal 6.4-8.9 [facility] Comment on above: Performed By: #### C MP, MG, PHOS, GGT, CBC ####[address] Sodium [Moles/Vol] 135 mmol/L Significant change down 136-145 [facility] Comment on above: Performed By: #### C MP, MG, PHOS, GGT, CBC ####[address] Urea nitrogen [Mass/Vol] 16 mg/dL Normal 7-25 [facility] Comment on above: Performed By: #### C MP, MG, PHOS, GGT, CBC ####[address] Gamma Glutamyl Transpeptidas keyla 03-10-2024 Amylase [Catalytic activity/Vol] 176 U/L High [facility] Comment on above: Result Comment: PERF ORMED BY:[address] [place], [place] [phone] MEDICAL DIRECTORCLIFFORD LOBATO M.D. Performed By: #### C MP, MG, PHOS, GGT, CBC ####[place] [id number] [facility] Gamma glutamyl transferase [ Enzymatic activity/volume] in Serum or PlasmaOrdered By: João Powell on 03-10-2024 Gamma glutamyl transferase [Catalytic activity/Vol] 176 U/L High [facility] Gamma glutamyl transferase [Catalytic activity/Vol] Gamma glutamyl transferase [Enzymatic activity/volume] in Serum or Plasma High [facility] Glucose Poct Glucometerson 1 Commemt1 Glu2: Cleaned Meter Normal [facility] Comment on above: Result Comment: PERF ORMED BY:[address] [place], [place] [phone] MEDICAL DIRECTORCLIFFORD LOBATO M.D. Performed By: #### G LULS ####Point of Care testing, Glucose [Mass/Vol] 133 mg/dL Normal [facility] Comment on above: Result Comment: [place] Glucose Reference Range is dependent on time and content of last meal. Glucose of more than 200 mg/dL in a nonstressed, ambulatory subject supports the diagnosis of Diabetes Mellitus. Performed By: #### G LULS ####Point of Care testing, Commemt1 Glu2: Cleaned Meter Normal [facility] Comment on above: Result Comment: PERF ORMED BY:[address] [place], [place] [phone] MEDICAL DIRECTORCLIFFORD LOBATO M.D. Performed By: #### G LULS ####Point of Care testing, Glucose [Mass/Vol] 294 mg/dL Normal [facility] Comment on above: Result Comment: [place] Glucose Reference Range is dependent on time and content of last meal. Glucose of more than 200 mg/dL in a nonstressed, ambulatory subject supports the diagnosis of Diabetes Mellitus. Performed By: #### G LULS ####Point of Care testing, Glucose [Mass/Vol] 352 mg/dL Normal [facility] Comment on above: Result Comment: [place] Glucose Reference Range is dependent on time and content of last meal. Glucose of more than 200 mg/dL in a nonstressed, ambulatory subject supports the diagnosis of Diabetes Mellitus.PERFORMED BY:[address] [place], [place] [phone] MEDICAL BRISA LOBATO M.D. Performed By: #### G LULS ####Point of Care testing, Glucose [Mass/Vol] 174 mg/dL Normal [facility] Comment on above: Result Comment: [place] Glucose Reference Range is dependent on time and content of last meal. Glucose of more than 200 mg/dL in a nonstressed, ambulatory subject supports the diagnosis of Diabetes Mellitus.PERFORMED BY:[place] [address] [address] [place], [place] [phone] MEDICAL DIRECTORCLIFFORD LOBATO M.D. Performed By: #### G LULS ####Point of Care testing, Magnesiumon 03-10-2024 Magnesium [Mass/Vol] 1.4 mg/dL Low 1.9-2.7 [facility] Comment on above: Result Comment: PERF ORMED BY:[place] [address] [address] [place], [place] [phone] MEDICAL DIRECTORCLIFFORD LOBATO M.D. Performed By: #### C MP, MG, PHOS, GGT, CBC ####[facility] [id number] [place] [address] [facility] U-nggrzf-J-Aspartate IgG, Se gladis 03-10-2024 K-lttzdg-QBjoowwsuy IgG, Serum Negative Normal Negative [facility] Comment on above: Result Comment: This test was developed and its performance characteristics determined by [facility]. It has not been cleared or approved by the Food and Drug Administration. The NIH-sponsored ExTINGUISH Trial (activity and safety of Inebilizumab in anti-NMDAR encephalitis) is actively recruiting patients. You may consider enrolling your patient in the clinical trial if the result of this test is positive. To learn more, or to refer your patient, call 948- 4FOJSH2 ([phone], study hotline) or see ClinicalTrials.gov (study ID, [id number]). Performed at: [facility] [id number] Medical Imaging Director: Chrissy Wong MD, Phone: [phone] BY:[place] [address] [address] [place], [place] [phone] MEDICAL DIRECTORCLIFFORD LOBATO M.D. Performed By: #### N MDA IGG SERUM ####[facility] , No Panel InformationOrdered By: Job James on 03-10-2024 N-Nyjulc-T-Aspartate Recept IgG Ab Negative Negative [facility] Comment on above: This test was jack larios and its performance characteristicsdetermined by [facility]. It has not been cleared orapproved by the Food and Drug Administration.The [facility]-sponsored ExTINGUISH Trial (activity and safety ofInebilizumab in anti-NMDAR encephalitis) is activelyrecruiting patients. You may consider enrolling yourpatient in the clinical trial if the result of this test ispositive. To learn more, or to refer your patient, call 086-5ABSAH4 ([phone], study hotline) or seeClinicalTrials.gov (study ID, [id number]).Performed at: [address] [id number] Director: Chrissy Wong MD, Phone: [phone] Negative Negative [facility] Phosphoruson 03-10-2024 Phosphate [Mass/Vol] 3.1 mg/dL Normal 2.5-4.5 [facility] Comment on above: Performed By: #### C MP, MG, PHOS, GGT, CBC ####[place] [address] [place] [address] [facility] Complete Blood Count Auto Di ffon 03-09-2024 Basophils (Bld) [#/Vol] 0.1 10*3/uL Normal 0.0-0.2 [facility] Comment on above: Result Comment: PERF ORMED BY:[address] [place], [place] [phone] MEDICAL DIRECTORCLIFFORD LOBATO M.D. Performed By: #### C BC, CMP, MG, PHOS ####[place] [address] [place] [address] [facility] Basophils/100 WBC (Bld) 1.2 % Normal . [facility] Comment on above: Performed By: #### C BC, CMP, MG, PHOS ####[facility] [place] [address] [place] Eosinophils (Bld) [#/Vol] 0.2 10*3/uL Normal 0.0-0.45 [facility] Comment on above: Performed By: #### C BC, CMP, MG, PHOS ####[address] Eosinophils/100 WBC (Bld) 2.5 % Normal . [facility] Comment on above: Performed By: #### C BC, CMP, MG, PHOS ####[address] Erythrocyte distribution width (RBC) [Ratio] 21.9 % High 12.0-14.8 [facility] Comment on above: Performed By: #### C BC, CMP, MG, PHOS ####[address] Hematocrit (Bld) [Volume fraction] 27.8 % Low 38.8-50.0 [facility] Comment on above: Performed By: #### C BC, CMP, MG, PHOS ####[address] Hemoglobin (Bld) [Mass/Vol] 8.9 g/dL Low 13.0-17.0 [facility] Comment on above: Performed By: #### C BC, CMP, MG, PHOS ####[address] Lymphocytes (Bld) [#/Vol] 1.8 10*3/uL Normal 1.00-4.8 [facility] Comment on above: Performed By: #### C BC, CMP, MG, PHOS ####[address] Lymphocytes/100 WBC (Bld) 20.9 % Normal . [facility] Comment on above: Performed By: #### C BC, CMP, MG, PHOS ####[address] MCH (RBC) [Entitic mass] 22.7 pg Low 27.5-35.2 [facility] Comment on above: Performed By: #### C BC, CMP, MG, PHOS ####[address] MCV (RBC) [Entitic vol] 70.7 fL Low 83.5-101 [facility] Comment on above: Performed By: #### C BC, CMP, MG, PHOS ####[address] Mean Corpuscular HGB Conc 32.1 g/dL Low 32.5-35.6 [facility] Comment on above: Performed By: #### C BC, CMP, MG, PHOS ####[address] Monocytes (Bld) [#/Vol] 1.0 10*3/uL High 0.0-0.8 [facility] Comment on above: Performed By: #### C BC, CMP, MG, PHOS ####[address] Monocytes/100 WBC (Bld) 10.9 % Normal . [facility] Comment on above: Performed By: #### C BC, CMP, MG, PHOS ####[address] Neutrophils (Bld) [#/Vol] 5.6 10*3/uL Normal 1.8-7.7 [facility] Comment on above: Performed By: #### C BC, CMP, MG, PHOS ####[address] Neutrophils/100 WBC (Bld) 64.5 % Normal . [facility] Comment on above: Performed By: #### C BC, CMP, MG, PHOS ####[address] NRBC% 0.2 /100{WBC} Normal 0-0.5 [facility] Comment on above: Performed By: #### C BC, CMP, MG, PHOS ####[address] Platelet mean volume (Bld) [Entitic vol] 8.7 fL Normal 6.6-10.1 [facility] Comment on above: Performed By: #### C BC, CMP, MG, PHOS ####[address] Platelets (Bld) [#/Vol] 265 10*3/uL Normal 150-450 [facility] Comment on above: Performed By: #### C BC, CMP, MG, PHOS ####[address] RBC (Bld) [#/Vol] 3.93 10*6/uL Normal 3.90-5.60 [facility] Comment on above: Performed By: #### C BC, CMP, MG, PHOS ####[address] WBC (Bld) [#/Vol] 8.8 10*3/uL Normal 4.1-10.5 [facility] Comment on above: Performed By: #### C BC, CMP, MG, PHOS ####[address] Comprehensive Metabolic Pane guy 03-09-2024 Albumin [Mass/Vol] 3.5 g/dL Normal 3.5-5.7 [facility] Comment on above: Performed By: #### C BC, CMP, MG, PHOS ####[address] Albumin/Globulin [Mass ratio] 1.0 {ratio} Normal [facility] Comment on above: Performed By: #### C BC, CMP, MG, PHOS ####[address] ALP [Catalytic activity/Vol] 110 U/L High 34-104 [facility] Comment on above: Performed By: #### C BC, CMP, MG, PHOS ####[address] ALT [Catalytic activity/Vol] 10 U/L Normal 7-52 [facility] Comment on above: Performed By: #### C BC, CMP, MG, PHOS ####[address] Anion gap [Moles/Vol] 14.9 mmol/L Normal 6.0-15.0 [facility] Comment on above: Performed By: #### C BC, CMP, MG, PHOS ####[address] AST [Catalytic activity/Vol] 14 U/L Normal 13-39 [facility] Comment on above: Performed By: #### C BC, CMP, MG, PHOS ####[address] Bilirubin [Mass/Vol] 0.5 mg/dL Normal 0.3-1.0 [facility] Comment on above: Performed By: #### C BC, CMP, MG, PHOS ####[address] Calcium [Mass/Vol] 9.0 mg/dL Normal 8.6-10.3 [facility] Comment on above: Performed By: #### C BC, CMP, MG, PHOS ####[address] Chloride [Moles/Vol] 110 mmol/L High 98-107 [facility] Comment on above: Performed By: #### C BC, CMP, MG, PHOS ####[address] CO2 [Moles/Vol] 20.8 mmol/L Low 21.0-31.0 [facility] Comment on above: Performed By: #### C BC, CMP, MG, PHOS ####[address] Creatinine [Mass/Vol] 1.80 mg/dL High 0.70-1.30 [facility] Comment on above: Performed By: #### C BC, CMP, MG, PHOS ####[address] Creatinine Clr Calc Pharmacy 47.64 Normal [facility] Comment on above: Performed By: #### C BC, CMP, MG, PHOS ####[address] GFR/1.73 sq M.predicted MDRD (S/P/Bld) [Vol rate/Area] 43.092 mL/min/{1.73_m2} Normal [facility] Comment on above: Performed By: #### C BC, CMP, MG, PHOS ####[address] Globulin (S) [Mass/Vol] 3.5 g/dL Normal [facility] Comment on above: Performed By: #### C BC, CMP, MG, PHOS ####[address] Glucose [Mass/Vol] 91 mg/dL Normal 70-100 [facility] Comment on above: Result Comment: [facility] Glucose Reference Range is dependent on time and content of last meal. Glucose of more than 200 mg/dL in a nonstressed, ambulatory subject supports the diagnosis of Diabetes Mellitus. ADA recommended reference range Performed By: #### C BC, CMP, MG, PHOS ####[address] Potassium [Moles/Vol] 3.7 mmol/L Normal 3.5-5.1 [facility] Comment on above: Performed By: #### C BC, CMP, MG, PHOS ####[address] Protein [Mass/Vol] 7.0 g/dL Normal 6.4-8.9 [facility] Comment on above: Performed By: #### C BC, CMP, MG, PHOS ####[address] Sodium [Moles/Vol] 142 mmol/L Normal 136-145 [facility] Comment on above: Performed By: #### C BC, CMP, MG, PHOS ####[facility] [id number] [place] [address] [facility] Urea nitrogen [Mass/Vol] 19 mg/dL Normal 7-25 [facility] Comment on above: Performed By: #### C BC, CMP, MG, PHOS ####[facility] [id number] [place] [address] [facility] Glucose Poct Glucometerson 1 Glucose [Mass/Vol] 386 mg/dL Normal [facility] Comment on above: Result Comment: [place] [facility] Glucose Reference Range is dependent on time and content of last meal. Glucose of more than 200 mg/dL in a nonstressed, ambulatory subject supports the diagnosis of Diabetes Mellitus.PERFORMED BY:[place] [address] [address] [place]DarrianMaryCHALIN[place], [place] [phone] MEDICAL DIRECTORCLIFFORD LOBATO M.D. Performed By: #### G LULS ####Point of Care testing, Commemt1 Glu2: Cleaned Meter Normal [facility] Comment on above: Result Comment: PERF ORMED BY:[address] [place], [place] [phone] MEDICAL DIRECTORCLIFFORD LOBATO M.D. Performed By: #### G LULS ####Point of Care testing, Glucose [Mass/Vol] 128 mg/dL Normal [facility] Comment on above: Result Comment: [place] [facility] Glucose Reference Range is dependent on time and content of last meal. Glucose of more than 200 mg/dL in a nonstressed, ambulatory subject supports the diagnosis of Diabetes Mellitus. Performed By: #### G LULS ####Point of Care testing, Glucose [Mass/Vol] 119 mg/dL Normal [facility] Comment on above: Result Comment: [place] [facility] Glucose Reference Range is dependent on time and content of last meal. Glucose of more than 200 mg/dL in a nonstressed, ambulatory subject supports the diagnosis of Diabetes Mellitus.PERFORMED BY:[place] [address] [address]rianMaryCHALINOCOMF[place], [place] [phone] MEDICAL DIRECTORCLIFFORD LOBATO M.D. Performed By: #### G LULS ####Point of Care testing, Magnesiumon 03-09-2024 Magnesium [Mass/Vol] 1.5 mg/dL Low 1.9-2.7 [facility] Comment on above: Result Comment: PERF ORMED BY:[address] [place], [place] [phone] MEDICAL DIRECTORCLIFFORD LOBATO M.D. Performed By: #### C BC, CMP, MG, PHOS ####[place] [id number] [place] [id number] [facility] Phosphoruson 03-09-2024 Phosphate [Mass/Vol] 3.1 mg/dL Normal 2.5-4.5 [facility] Comment on above: Performed By: #### C BC, CMP, MG, PHOS ####[place] [id number] [facility] US renal BIon 03-09-2024 US renal BI Normal [facility] XR elbow LT 2Von 03-09-2024 XR elbow LT 2V Normal [facility] Activated partial thrombopla stin time (aPTT) in platelet poor plasma by coagulation aOrdered By: Bonilla Rubin on 03-08-2024 aPTT Coag (PPP) [Time] 29.6 s 25.1-36.[address] [facility] Comment on above: A hematocrit value g reater than 55% may lead to inaccurate results in coagulation testing. Patients having hematocrit values >55% require a special collection tube for coagulation studies. Please contact the laboratory at [phone] for redraw instructions. Alanine aminotransferase [En zymatic activity/volume] in Serum or PlasmaOrdered By: Bonilla Rubin on 03-08-2024 ALT [Catalytic activity/Vol] 13 U/L Normal 7-52 [facility] Comment on above: Performed By: #### P TT, HS TROP, PT, CMP, CK, CBC ####[place] [id number] [facility] Albumin [Mass/volume] in Ser um or Plasma by Bromocresol green (BCG) dye binding methoOrdered By: Bonilla Rubin on 03-08-2024 Albumin BCG dye [Mass/Vol] 3.8 g/dL 3.5-5.7 [facility] Alkaline phosphatase [Enzyma tic activity/volume] in Serum or PlasmaOrdered By: Bonilla Rubin on 03-08-2024 ALP [Catalytic activity/Vol] 116 U/L High 34-104 [facility] Comment on above: Performed By: #### P TT, HS TROP, PT, CMP, CK, CBC ####[facility] [id number] [place] [address] [facility] Ammonia [Moles/volume] in Pl asmaOrdered By: João Powell on 03-08-2024 Ammonia (P) [Moles/Vol] 33 umol/L Normal [facility] Comment on above: Result Comment: PERF ORMED BY:[address] [place], [place] [phone] MEDICAL DIRECTORCLIFFORD LOBATO M.D. Performed By: #### A MM ####[place] [id number] [place] [address] [facility] Ammonia (P) [Moles/Vol] Ammonia [Moles/volume] in Plasma [facility] Amphetamine Screen Ql (U)Ord ered By: Bonilla Scottie on 03-08-2024 Amphetamines Ql (U) Amphetamines screen Negativ e [facility] Amphetamines Ql (U) Negative Negative [facility] Appearance of UrineOrdered B y: Bonilla Scottie on 03-08-2024 Appearance (U) Urine appearance Clear [facility] Arterial Blood Gason 024 ABG Base Excess -1.4 mmol/L Normal -3.0-3.0 [facility] Comment on above: Performed By: #### A BG ####Point of Care testing, ABG Frac Inspired O2 21 % Normal [facility] Comment on above: Performed By: #### A BG ####Point of Care testing, ABG Oxygen Content 6.4 mmol/L Low 6.6-9.7 [facility] Comment on above: Performed By: #### A BG ####Point of Care testing, ABG Oxygen Saturation 97.1 % Normal 95.0-100.0 [facility] Comment on above: Performed By: #### A BG ####Point of Care testing, ABG PCO2 33.3 mm[Hg] Low 35.0-45.0 [facility] Comment on above: Performed By: #### A BG ####Point of Care testing, ABG PH 7.44 Normal 7.35-7.45 [facility] Comment on above: Performed By: #### A BG ####Point of Care testing, ABG PO2 92.6 mm[Hg] Normal 80.0-100.0 [facility] Comment on above: Performed By: #### A BG ####Point of Care testing, Respiratory Critical Normal [facility] Comment on above: Result Comment: Crit ical Value called on: 03/08/2024 at 15:16PERFORMED BY:[place] [address] [address] [place], [place] [phone] MEDICAL DIRECTORCLIFFORD LOBATO M.D. Performed By: #### A BG ####Point of Care testing, VBG Draw Site Left Radial Normal [facility] Comment on above: Performed By: #### A BG ####Point of Care testing, Arterial Blood GasOrdered By : Bonilla Rubin on 03-08-2024 CO2 [Moles/Vol] 23.2 mmol/L Normal 23.0-27.0 [facility] Comment on above: Performed By: #### A BG ####Point of Care testing, HCO3 (Bld) [Moles/Vol] 22.2 mmol/L Low 23.0-29.0 [facility] Comment on above: Performed By: #### A BG ####Point of Care testing, Aspartate aminotransferase [ Enzymatic activity/volume] in Serum or PlasmaOrdered By: Bonilla Rubin on 03-08-2024 AST [Catalytic activity/Vol] 14 U/L Normal 13-39 [facility] Comment on above: Performed By: #### P TT, HS TROP, PT, CMP, CK, CBC ####[address] Automated basophil %Ordered By: Bonilla Rubin on 03-08-2024 Basophils/100 WBC (Bld) 1.0 % Normal . [facility] Comment on above: Performed By: #### P TT, HS TROP, PT, CMP, CK, CBC ####[address] Automated basophil countOrde red By: Bonilla Rubin on 03-08-2024 Basophils (Bld) [#/Vol] 0.1 10*3/uL Normal 0.0-0.2 [facility] Comment on above: Result Comment: PERF ORMED BY:[address] [place]Dar[place]Mary[place], [place] [phone] MEDICAL DIRECTORCLIFFORD LOBATO M.D. Performed By: #### P TT, HS TROP, PT, CMP, CK, CBC ####[address] Automated blood monocyte cou ntOrdered By: Bonilla Rubin on 03-08-2024 Monocytes (Bld) [#/Vol] 1.2 10*3/uL High 0.0-0.8 [facility] Comment on above: Performed By: #### P TT, HS TROP, PT, CMP, CK, CBC ####[address] Automated eosinophil %Ordere d By: Bonilla Rubin on 03-08-2024 Eosinophils/100 WBC (Bld) 3.3 % Normal . [facility] Comment on above: Performed By: #### P TT, HS TROP, PT, CMP, CK, CBC ####[address] Automated eosinophil countOr dered By: Bonilla Rubin on 03-08-2024 Eosinophils (Bld) [#/Vol] 0.3 10*3/uL Normal 0.0-0.45 [facility] Comment on above: Performed By: #### P TT, HS TROP, PT, CMP, CK, CBC ####[facility] [id number] Automated monocyte %Ordered By: Bonilla Rubin on 03-08-2024 Monocytes/100 WBC (Bld) 13.2 % Normal . [facility] Comment on above: Performed By: #### P TT, HS TROP, PT, CMP, CK, CBC ####[facility] [id number] Automated neutrophil %Ordere d By: Bonilla Rubin on 03-08-2024 Neutrophils/100 WBC (Bld) 69.4 % Normal . [facility] Comment on above: Performed By: #### P TT, HS TROP, PT, CMP, CK, CBC ####[facility] [id number] Bacterial blood cultureOrder ed By: Bonilla Rubin on 03-08-2024 Bacteria identified Cx Nom (Bld) Bacterial blood culture [facility] Bacteria identified Cx Nom (Bld) Bacterial blood culture [facility] Bacteria identified Cx Nom (Bld) NO GROWTH 5 DAYS [facility] Bacteria identified Cx Nom (Bld) NO GROWTH 5 DAYS [facility] Barbiturates [Presence] in U rine by Screen methodOrdered By: Bonilla Rubin on 03-08-2024 Barbiturates Screen Ql (U) Negative Negative [facility] Barbiturates Screen Ql (U) Barbiturates [Presence] in Urine by Screen method Negative [facility] Benzodiazepines Screen Ql (U )Ordered By: Bonilla Rubin on 03-08-2024 Benzodiazepines Ql (U) Negative Negative [facility] Benzodiazepines Ql (U) Benzodiazepines [Presence] in Urine by Screen method Negative [facility] Benzoylecgonine [Presence] i n Urine by Screen methodOrdered By: Bonilla Rubin on 03-08-2024 Benzoylecgonine Screen Ql (U) Negative Negative [facility] Benzoylecgonine Screen Ql (U) Benzoylecgonine [Presence] in Urine by Screen method Negative [facility] Bilirubin Test strip Ql (U)O rdered By: Bonilla Rubin on 03-08-2024 Bilirubin Ql (U) Negative Negative [facility] Bilirubin Ql (U) Bilirubin.total [Presence] in Urine by Test strip Negative [facility] Bilirubin.total [Mass/volume ] in Serum or PlasmaOrdered By: Bonilla Rubin on 03-08-2024 Bilirubin [Mass/Vol] 0.4 mg/dL Normal 0.3-1.0 [facility] Comment on above: Performed By: #### P TT, HS TROP, PT, CMP, CK, CBC ####[place] [id number] [facility] BioFire Not Detectedon 03-08 BioFire Not Detected Not detected Normal Not Detecte [facility] Comment on above: Result Comment: This is a duplicate RP2.1 COVID (PCR) result to be used for statistical tracking purpose only.PERFORMED BY:[address] [phone] MEDICAL DIRECTORCLIFFORD LOBATO M.D. Performed By: #### R QUE PANEL UPP., BIOFIRECOVNOTDE ####[place] [id number] [facility] Blood Cultureon 03-08-2024 Bacteria identified Cx Nom (Bld) NO GROWTH 5 DAYS PERFORMED BY: [facility] [address] [place] [address] PATHOLOGIST COMPRESSOR MECHANIC CLIFFORD LOBATO M.D. Normal [facility] Comment on above: Performed By: #### C UBLD, LACTIC ####[place] [id number] [facility] Bacteria identified Cx Nom (Bld) NO GROWTH 5 DAYS PERFORMED BY: [facility] [address] [place] [address] PATHOLOGIST COMPRESSOR MECHANIC CLIFFORD LOBATO M.D. Normal [facility] Comment on above: Performed By: #### C UBLD, LACTIC ####[place] [id number] [facility] COVID-19 Detected/Not Detect edOrdered By: Bonilla Rubin on 03-08-2024 SARS-CoV-2 (COVID-19) RNA NELLY+non-probe Ql (Nph) Not detected Not Detecte [facility] Comment on above: This is a duplicate RP2.1 COVID (PCR) result to be used for statistical tracking purpose only. CT angio headon 03-08-2024 CT angio head Normal [facility] Calcium [Mass/volume] in Ser um or PlasmaOrdered By: Bonilla Rubin on 03-08-2024 Calcium [Mass/Vol] 9.6 mg/dL Normal 8.6-10.3 [facility] Comment on above: Performed By: #### P TT, HS TROP, PT, CMP, CK, CBC ####[facility] [id number] [place] [address] [facility] Cannabinoids [Presence] in U rine by Screen methodOrdered By: Bonilla Rubin on 03-08-2024 Cannabinoids Screen Ql (U) Negative Negative [facility] Comment on above: These are unconfirme d results and should not be used for legal purposes. Drug Cut-Off Concentration: AMPH 1000 ng/mL JERMAINE 200 ng/mL SAVANNAH 200 ng/mL COCM 300 ng/mL OP 300 ng/mL PCP 25 ng/mL THC 20 ng/mL Cannabinoids Screen Ql (U) Cannabinoids [Presence] in Urine by Screen method Negative [facility] Comment on above: These are unconfirme d results and should not be used for legal purposes. Drug Cut-Off Concentration: AMPH 1000 ng/mL JERMAINE 200 ng/mL SAVANNAH 200 ng/mL COCM 300 ng/mL OP 300 ng/mL PCP 25 ng/mL THC 20 ng/mL Capillary blood glucose ashley urement by glucometer (mass/volume)Ordered By: Bonilla Rubin on 03-08-2024 Glucose [Mass/Vol] 182 mg/dL Normal [facility] Comment on above: Result Comment: [facility] Glucose Reference Range is dependent on time and content of last meal. Glucose of more than 200 mg/dL in a nonstressed, ambulatory subject supports the diagnosis of Diabetes Mellitus.PERFORMED BY:[facility] [place], [place] [phone] MEDICAL DIRECTORCLIFFORD LOBATO M.D. Performed By: #### G LULS ####Point of Care testing, Carbon dioxide, total [Moles /volume] in Serum or PlasmaOrdered By: Bonilla Rubin on 03-08-2024 CO2 [Moles/Vol] 25.0 mmol/L Normal 21.0-31.0 [facility] Comment on above: Performed By: #### P TT, HS TROP, PT, CMP, CK, CBC ####[address] Chloride [Moles/volume] in S ilia or PlasmaOrdered By: Bonilla Rubin on 03-08-2024 Chloride [Moles/Vol] 106 mmol/L Normal 98-107 [facility] Comment on above: Performed By: #### P TT, HS TROP, PT, CMP, CK, CBC ####[address] Color Auto (U)Ordered By: Yasmin Ruibn on 03-08-2024 Color (U) Color of Urine by Auto Yellow [facility] Color of Urine by AutoOrdere d By: Bonilla Rubin on 03-08-2024 Color (U) Light-yellow Normal Yellow [facility] Comment on above: Order Comment: Name Collection Type:: Straight Catheter Performed By: #### U A ####[address] Complete Blood Count Auto Di ffon 03-08-2024 Mean Corpuscular HGB Conc 32.0 g/dL Low 32.5-35.6 [facility] Comment on above: Performed By: #### P TT, HS TROP, PT, CMP, CK, CBC ####[address] Monocytes/100 WBC (Bld) 18.68 % Normal 0.00-20.00 [facility] Comment on above: Performed By: #### P TT, HS TROP, PT, CMP, CK, CBC ####[address] NRBC% 0.2 /100{WBC} Normal 0-0.5 [facility] Comment on above: Performed By: #### P TT, HS TROP, PT, CMP, CK, CBC ####[address] [address] [facility] Comprehensive Metabolic Pane guy 03-08-2024 Albumin [Mass/Vol] 3.8 g/dL Normal 3.5-5.7 [facility] Comment on above: Performed By: #### P TT, HS TROP, PT, CMP, CK, CBC ####[place] [id number] [facility] Creatinine Clr Calc Pharmacy 44.90 Normal [facility] Comment on above: Result Comment: PERF ORMED BY:[address] [place], [place] [phone] MEDICAL DIRECTORCLIFFORD LOBATO M.D. Performed By: #### P TT, HS TROP, PT, CMP, CK, CBC ####[place] [id number] [facility] GFR/1.73 sq M.predicted MDRD (S/P/Bld) [Vol rate/Area] 40.131 mL/min/{1.73_m2} Normal [facility] Comment on above: Performed By: #### P TT, HS TROP, PT, CMP, CK, CBC ####[place] [id number] [facility] Creatine kinase [Enzymatic a ctivity/volume] in Serum or PlasmaOrdered By: Bonilla Rubin on 03-08-2024 CK [Catalytic activity/Vol] 181 U/L Normal [facility] Comment on above: Performed By: #### P TT, HS TROP, PT, CMP, CK, CBC ####[place] [id number] [facility] CK [Catalytic activity/Vol] Creatine kinase [Enzymatic activity/volume] in Serum or Plasma [facility] Creatinine [Mass/volume] in Serum or PlasmaOrdered By: Bonilla Rubin on 03-08-2024 Creatinine [Mass/Vol] 1.91 mg/dL High 0.70-1.30 [facility] Comment on above: Performed By: #### P TT, HS TROP, PT, CMP, CK, CBC ####[place] [place] [address] [facility] Drug Screen,Urineon 03-08-20 Amphetamine Screen,Urine Negative Normal Negative [facility] Comment on above: Performed By: #### U RDS ####[address] [address] [facility] Barbiturate Screen,Urine Negative Normal Negative [facility] Comment on above: Performed By: #### U RDS ####[address] [address] [facility] Benzodiazepines Screen,Urine Negative Normal Negative [facility] Comment on above: Performed By: #### U RDS ####[address] [address] [facility] Cannabinoid Screen,Urine Negative Normal Negative [facility] Comment on above: Result Comment: Thes e are unconfirmed results and should not be used for legal purposes. Drug Cut-Off Concentration: AMPH 1000 ng/mL JERMAINE 200 ng/mL SAVANNAH 200 ng/mL COCM 300 ng/mL OP 300 ng/mL PCP 25 ng/mL THC 20 ng/mLPERFORMED BY:[address] [place], [place] [phone] MEDICAL BRISA LOBATO M.D. Performed By: #### U RDS ####[address] [address] [facility] Cocaine Screen,Urine Negative Normal Negative [facility] Comment on above: Performed By: #### U RDS ####[address] [address] [facility] Opiate Screen,Urine Negative Normal Negative [facility] Comment on above: Performed By: #### U RDS ####[address] [address] [facility] Phencyclidine Screen,Urine Negative Normal Negative [facility] Comment on above: Performed By: #### U RDS ####[address] [address] [facility] ECG 12 lead ECGon 03-08-2024 ECG 12 lead ECG Normal [facility] [facility] Erythrocyte distribution wid th [Ratio] by Automated countOrdered By: Bonilla Rubin on 03-08-2024 Erythrocyte distribution width (RBC) [Ratio] 22.0 % High 12.0-14.8 [facility] Comment on above: Performed By: #### P TT, HS TROP, PT, CMP, CK, CBC ####[facility] [id number] [place] [address] [facility] Erythrocytes [#/volume] in B lood by Automated countOrdered By: Bonilla Rubin on 03-08-2024 RBC (Bld) [#/Vol] 4.54 10*6/uL Normal 3.90-5.60 [facility] Comment on above: Performed By: #### P TT, HS TROP, PT, CMP, CK, CBC ####[facility] [id number] [place] [address] [facility] Glucose [Mass/volume] in Ser um or PlasmaOrdered By: Bonilla Rubin on 03-08-2024 Glucose [Mass/Vol] 167 mg/dL High 70-100 [facility] Comment on above: Result Comment: [facility] Glucose Reference Range is dependent on time and content of last meal. Glucose of more than 200 mg/dL in a nonstressed, ambulatory subject supports the diagnosis of Diabetes Mellitus. ADA recommended reference range Performed By: #### P TT, HS TROP, PT, CMP, CK, CBC ####[facility] [id number] [place] [address] [facility] Glucose [Mass/volume] in Uri ne by Test stripOrdered By: Bonilla Rubin on 03-08-2024 Glucose Test strip (U) [Mass/Vol] >=1000 mg/dL High Normal [facility] Glucose Test strip (U) [Mass/Vol] Glucose [Mass/volume] in Urine by Test strip [facility] Hematocrit [Volume Fraction] of Blood by Automated countOrdered By: Bonilla Rubin on 03-08-2024 Hematocrit (Bld) [Volume fraction] 32.2 % Low 38.8-50.0 [facility] Comment on above: Performed By: #### P TT, HS TROP, PT, CMP, CK, CBC ####[facility] [id number] Hemoglobin Test strip Ql (U) Ordered By: Bonilla Rubin on 03-08-2024 Hemoglobin Ql (U) Negative Negative [facility] Hemoglobin Ql (U) Hemoglobin [Presence ] in Urine by Test strip Negative [facility] Hemoglobin [Mass/volume] in BloodOrdered By: Bonilla Rubin on 03-08-2024 Hemoglobin (Bld) [Mass/Vol] 10.3 g/dL Low 13.0-17.0 [facility] Comment on above: Performed By: #### P TT, HS TROP, PT, CMP, CK, CBC ####[facility] INR in Platelet poor plasma by Coagulation assayOrdered By: Bonilla Rubin on 03-08-2024 INR Coag (PPP) [Relative time] 1.1 {INR} Normal [facility] Comment on above: INR [...] - 4.5 Performed By: #### P TT, HS TROP, PT, CMP, CK, CBC ####[place] [address] [place] [id number] [facility] INR Coag (PPP) [Relative time] INR in Platelet poor plasma by Coagulation assay [facility] Comment on above: INR [...] i n Urine by Test strip Negative [facility] Ketones [Presence] in Urine by Test stripOrdered By: Bonilla Rubin on 03-08-2024 Ketones Ql (U) Negative Normal Negative [facility] Comment on above: Order Comment: Name Collection Type:: Straight Catheter Performed By: #### U A ####[address] [address] [place] Lactate [Moles/volume] in Se rum or PlasmaOrdered By: Bonilla Rubin on 03-08-2024 Lactate [Moles/Vol] 1.1 mmol/L Normal 0.5-2.2 [facility] Comment on above: Result Comment: PERF ORMED BY:[address] [place], [place] [phone] MEDICAL DIRECTORCLIFFORD LOBATO M.D. Performed By: #### C UBLD, LACTIC ####[address] [address] [facility] Lactate [Moles/Vol] Lactate [Moles/volum e] in Serum or Plasma 0.5-2.2 [facility] Leukocyte esterase [Presence ] in Urine by Test stripOrdered By: Bonilla Rubin on 03-08-2024 Leukocyte esterase Test strip Ql (U) Negative Normal Negative [facility] Comment on above: Order Comment: Name Collection Type:: Straight Catheter Performed By: #### U A ####[address] [address] [facility] Leukocyte esterase Test strip Ql (U) Leukocyte esterase [Presence] in Urine by Test strip Negative [facility] Leukocytes [#/volume] correc jorge for nucleated erythrocytes in Blood by Automated counOrdered By: Bonilla Rubin on 03-08-2024 WBC corrected for nucl RBC Auto (Bld) [#/Vol] 8.9 10*3/uL 4.1-10.5 [facility] Leukocytes [#/volume] in Blo od by Automated countOrdered By: Bonilla Rubin on 03-08-2024 WBC (Bld) [#/Vol] 8.9 10*3/uL Normal 4.1-10.5 [facility] Comment on above: Performed By: #### P TT, HS TROP, PT, CMP, CK, CBC ####[address] Lymphocytes [#/volume] in Bl ood by Automated countOrdered By: Bonilla Rubin on 03-08-2024 Lymphocytes (Bld) [#/Vol] 1.2 10*3/uL Normal 1.00-4.8 [facility] Comment on above: Performed By: #### P TT, HS TROP, PT, CMP, CK, CBC ####[address] Lymphocytes/100 leukocytes i n Blood by Automated countOrdered By: Bonilla Rubin on 03-08-2024 Lymphocytes/100 WBC (Bld) 13.1 % Normal . [facility] Comment on above: Performed By: #### P TT, HS TROP, PT, CMP, CK, CBC ####[address] MCH [Entitic mass] by Automa jorge countOrdered By: Bonilla Rubin on 03-08-2024 MCH (RBC) [Entitic mass] 22.7 pg Low 27.5-35.2 [facility] Comment on above: Performed By: #### P TT, HS TROP, PT, CMP, CK, CBC ####[address] MCHC Auto (RBC) [Mass/Vol]Or dered By: Bonilla Rubin on 03-08-2024 MCHC (RBC) [Mass/Vol] 32.0 g/dL Low 32.5-35.6 [facility] MCV [Entitic volume] by Auto mated countOrdered By: Bonilla Rubin on 03-08-2024 MCV (RBC) [Entitic vol] 71.0 fL Low 83.5-101 [facility] Comment on above: Performed By: #### P TT, HS TROP, PT, CMP, CK, CBC ####[facility] [id number] MR head/brain wo conon 03-08 MR head/brain wo con Normal [facility] Monocyte distribution width [Entitic volume] in Blood by AutomatedOrdered By: Bonilla Rubin on 03-08-2024 Monocyte distribution width Auto (Bld) [Entitic vol] 18.68 % 0.00-20.00 [facility] Monocyte distribution width Auto (Bld) [Entitic vol] Monocyte distribution width [Entitic volume] in Blood by Automated 0.00-20.00 [facility] Neutrophils [#/volume] in Bl ood by Automated countOrdered By: Bonilla Rubin on 03-08-2024 Neutrophils (Bld) [#/Vol] 6.2 10*3/uL Normal 1.8-7.7 [facility] Comment on above: Performed By: #### P TT, HS TROP, PT, CMP, CK, CBC ####[facility] [id number] Nitrite Test strip Ql (U)Ord ered By: Bonilla Rubin on 03-08-2024 Nitrite Ql (U) Negative Negative [facility] Nitrite Ql (U) Nitrite [Presence] i n Urine by Test strip Negative [facility] No Panel InformationOrdered By: Bonilla Rubin on 03-08-2024 Arterial Blood Base Excess -1.4 mmol/L -3.0-3.0 [facility] Arterial Blood Oxygen Content 6.4 mmol/L Low 6.6-9.7 [facility] Arterial Blood Oxygen Saturation 97.1 % 95.0-100.0 [facility] Arterial Blood Partial Pressure CO2 33.3 mm[Hg] Low 35.0-45.0 [facility] Arterial Blood Partial Pressure O2 92.6 mm[Hg] 80.0-100.0 [facility] Arterial Blood pH 7.44 7.35-7.45 [facility] Blood Gas Critical Value See comment [facility] Comment on above: Critical Value shai hooker on: 03/08/2024 at 15:16 Blood Gas Sample Site Left radial [facility] FiO2 21 % [facility] 7.44 7.35-7.45 [facility] 33.3 mm[Hg] Low 35.0-45.0 [facility] 92.6 mm[Hg] 80.0-100.0 [facility] 22.2 mmol/L Low 23.0-29.0 [facility] -1.4 mmol/L -3.0-3.0 [facility] 97.1 % 95.0-100.0 [facility] 6.4 mmol/L Low 6.6-9.7 [facility] 23.2 mmol/L 23.0-27.0 [facility] 21 % [facility] Left radial [facility] See comment [facility] 40.131 mL/Min [facility] 44.90 [facility] Nucleated erythrocytes [Pres ence] in Blood by Automated countOrdered By: Bonilla Rubin on 03-08-2024 Nucleated RBC Auto Ql (Bld) 0.2 /100{WBC} 0-0.5 [facility] Opiates [Presence] in Urine by Screen methodOrdered By: Bonilla Rubin on 03-08-2024 Opiates Screen Ql (U) Negative Negative [facility] Opiates Screen Ql (U) Opiates [Presence] in Urine by Screen method Negative [facility] Partial Thromboplastin Timeo n 03-08-2024 aPTT Coag (Bld) [Time] 29.6 s Normal 25.1-36.5 [facility] Comment on above: Result Comment: A he matocrit value greater than 55% may lead to inaccurate results in coagulation testing. Patients having hematocrit values >55% require a special collection tube for coagulation studies. Please contact the laboratory at [phone] for redraw instructions.PERFORMED BY:[place] [address] [place], [place] [phone] MEDICAL DIRECTORCLIFFORD LOBATO M.D. Performed By: #### P TT, HS TROP, PT, CMP, CK, CBC ####[place] [id number] [facility] Phencyclidine Screen Ql (U)O rdered By: Bonilla Rubin on 03-08-2024 Phencyclidine Ql (U) Negative Negative [facility] Phencyclidine Ql (U) Phencyclidine [Pres ence] in Urine by Screen method Negative [facility] Platelet mean volume [Entiti c volume] in Blood by Automated countOrdered By: Bonilla Rubin on 03-08-2024 Platelet mean volume (Bld) [Entitic vol] 8.2 fL Normal 6.6-10.1 [facility] Comment on above: Performed By: #### P TT, HS TROP, PT, CMP, CK, CBC ####[address] Platelets [#/volume] in Bloo d by Automated countOrdered By: Bonilla Rubin on 03-08-2024 Platelets (Bld) [#/Vol] 286 10*3/uL Normal 150-450 [facility] Comment on above: Performed By: #### P TT, HS TROP, PT, CMP, CK, CBC ####[address] Potassium [Moles/volume] in Serum or PlasmaOrdered By: Bonilla Rubin on 03-08-2024 Potassium [Moles/Vol] 4.1 mmol/L Normal 3.5-5.1 [facility] Comment on above: Performed By: #### P TT, HS TROP, PT, CMP, CK, CBC ####[address] Protein Test strip (U) [Mass /Vol]Ordered By: Bonilla Rubin on 03-08-2024 Protein (U) [Mass/Vol] Negative Negative [facility] Protein (U) [Mass/Vol] Protein [Mass/vol ume] in Urine by Test strip Negative [facility] Protein [Mass/volume] in Ser um or PlasmaOrdered By: Bonilla Rubin on 03-08-2024 Protein [Mass/Vol] 7.7 g/dL Normal 6.4-8.9 [facility] Comment on above: Performed By: #### P TT, HS TROP, PT, CMP, CK, CBC ####[place] [address] [place] [id number] [facility] Prothrombin time (PT)Ordered By: Bonilla Rubin on 03-08-2024 PT Coag (PPP) [Time] 13.0 s High 9.0-12.9 [facility] Comment on above: A hematocrit value g reater than 55% may lead to inaccurate results in coagulation testing. Patients having hematocrit values >55% require a special collection tube for coagulation studies. Please contact the laboratory at [phone] for redraw instructions. Result Comment: A he matocrit value greater than 55% may lead to inaccurate results in coagulation testing. Patients having hematocrit values >55% require a special collection tube for coagulation studies. Please contact the laboratory at [phone] for redraw instructions. Performed By: #### P TT, HS TROP, PT, CMP, CK, CBC ####[place] [address] [place] [id number] [facility] PT Coag (PPP) [Time] Prothrombin time (PT) High 9.0- 12.9 [facility] Comment on above: A hematocrit value g reater than 55% may lead to inaccurate results in coagulation testing. Patients having hematocrit values >55% require a special collection tube for coagulation studies. Please contact the laboratory at [phone] for redraw instructions. Respiratory (Upper) Panel, P CRon 03-08-2024 Respiratory (Upper) Panel, PCR Normal [facility] Comment on above: Performed By: #### R QUE PANEL UPP., BIOFIRECOVNOTDE ####[place] [address] [place] [id number] [facility] Respiratory pathogens DNA an d RNA panel - Nasopharynx by NELLY with non-probe detectionOrdered By: Bonilla Rubin on 03-08-2024 Respiratory pathogens DNA and RNA panel NELLY+non-probe (Nph) Respiratory pathogens DNA and RNA panel - Nasopharynx by NELLY with non-probe detection [facility] Respiratory pathogens DNA and RNA panel NELLY+non-probe (Nph) [facility] Serum globulin measurement b y calculation (mass/volume)Ordered By: Bonilla Rubin on 03-08-2024 Globulin (S) [Mass/Vol] 3.9 g/dL [facility] Comment on above: Performed By: #### P TT, HS TROP, PT, CMP, CK, CBC ####[address] Serum or plasma albumin/glob ulin mass ratioOrdered By: Bonilla Rubin on 03-08-2024 Albumin/Globulin [Mass ratio] 1.0 {ratio} [facility] Comment on above: Performed By: #### P TT, HS TROP, PT, CMP, CK, CBC ####[address] Serum or plasma anion gap de terminationOrdered By: Bonilla Rubin on 03-08-2024 Anion gap [Moles/Vol] 14.1 mmol/L Normal 6.0-15.[address] [facility] Comment on above: Performed By: #### P TT, HS TROP, PT, CMP, CK, CBC ####[address] Sodium [Moles/volume] in Ser um or PlasmaOrdered By: Bonilla Rubin on 03-08-2024 Sodium [Moles/Vol] 141 mmol/L Normal 136-145 [facility] Comment on above: Performed By: #### P TT, HS TROP, PT, CMP, CK, CBC ####[address] Specific gravity Test strip (U) [Rel density]Ordered By: Bonilla Rubin on 03-08-2024 Specific gravity (U) [Rel density] 1.013 1.001-1.03 0 [facility] Specific gravity (U) [Rel density] Specific gravity of Urine by Test strip 1.001-1.03 0 [facility] Troponin I High Sensitivityo n 03-08-2024 Troponin I High Sensitivity 6.1 pg/mL Normal 0.0-20.0 [facility] Comment on above: Result Comment: PERF ORMED BY:[address] [place], [place] [phone] MEDICAL DIRECTORCLIFFORD LOBATO M.D. Performed By: #### P TT, HS TROP, PT, CMP, CK, CBC ####[address] [address] [facility] Troponin I.cardiac [Mass/vol ume] in Serum or Plasma by Detection limit <= 0.01 ng/Ordered By: Bonilla Rubin on 03-08-2024 Troponin I.cardiac DL <= 0.01 ng/mL [Mass/Vol] 6.1 pg/mL 0.0-20.0 [facility] Troponin I.cardiac DL <= 0.01 ng/mL [Mass/Vol] Troponin I.cardiac [Mass/volume] in Serum or Plasma by Detection limit <= 0.01 ng/ 0.0-20.0 [facility] Urea nitrogen [Mass/volume] in Serum or PlasmaOrdered By: Bonilla Rubin on 03-08-2024 Urea nitrogen [Mass/Vol] 19 mg/dL Normal 7-25 [facility] Comment on above: Performed By: #### P TT, HS TROP, PT, CMP, CK, CBC ####[address] [address] [facility] Urinalysison 03-08-2024 Bilirubin,Urine Negative Normal Negative [facility] Comment on above: Order Comment: Name Collection Type:: Straight Catheter Performed By: #### U A ####[address] [address] [facility] Glucose Ql (U) >=1000 High Normal [facility] Comment on above: Order Comment: Name Collection Type:: Straight Catheter Performed By: #### U A ####[address] [address] [facility] Nitrite,Urine Negative Normal Negative [facility] Comment on above: Order Comment: Name Collection Type:: Straight Catheter Performed By: #### U A ####[address] [address] [facility] Occult Blood,Urine Negative Normal Negative [facility] Comment on above: Order Comment: Name Collection Type:: Straight Catheter Result Comment: PERF ORMED BY:[place] [address] [place], [place] [phone] MEDICAL DIRECTORCLIFFORD LOBATO M.D. Performed By: #### U A ####[address] [place] [place] [address] [facility] Protein,Urine Negative Normal Negative [facility] Comment on above: Order Comment: Name Collection Type:: Straight Catheter Performed By: #### U A ####[address] [address] [facility] Specificy [place],Urine 1.013 Normal 1.001-1.03 0 [facility] Comment on above: Order Comment: Name Collection Type:: Straight Catheter Performed By: #### U A ####[address] [address] [facility] Urobilinogen,Urine Normal Normal Normal [facility] Comment on above: Order Comment: Name Collection Type:: Straight Catheter Performed By: #### U A ####[address] [address] [facility] Urine appearanceOrdered By: Bonilla Rubin on 03-08-2024 Appearance (U) Clear Normal Clear [facility] Comment on above: Order Comment: Name Collection Type:: Straight Catheter Performed By: #### U A ####[address] [address] [facility] Urobilinogen Test strip (U) [Mass/Vol]Ordered By: Bonilla Rubin on 03-08-2024 Urobilinogen (U) [Mass/Vol] Normal mg/dL Normal [facility] Urobilinogen (U) [Mass/Vol] Urobilinogen [Mass/volume] in Urine by Test strip Normal [facility] XR chest 1V portableon 03-08 XR chest 1V portable Normal [facility] aPTT in Platelet poor plasma by Coagulation assayOrdered By: Bonilla Rubin on 03-08-2024 aPTT Coag (PPP) [Time] Activated partial thromboplastin time (aPTT) in platelet poor plasma by coagulation a 25.1-36.5 [facility] Comment on above: A hematocrit value g reater than 55% may lead to inaccurate results in coagulation testing. Patients having hematocrit values >55% require a special collection tube for coagulation studies. Please contact the laboratory at [phone] for redraw instructions. pH Test strip (U)Ordered By: Bonilla Rubin on 03-08-2024 pH (U) pH of Urine by Test strip 5.0-9.0 [facility] pH of Urine by Test stripOrd ered By: Bonilla Rubin on 03-08-2024 pH (U) 5.0 [pH] Normal 5.0-9.0 [facility] Comment on above: Order Comment: Name Collection Type:: Straight Catheter Performed By: #### U A ####[facility] [id number] [place] [id number] [facility] Alanine aminotransferase [En zymatic activity/volume] in Serum or PlasmaOrdered By: João Powell on 03-06-2024 ALT [Catalytic activity/Vol] 11 U/L Normal [facility] Comment on above: Performed By: #### M G, PHOS, CMP, DIFF CBC ####[place] [id number] [facility] ALT [Catalytic activity/Vol] Alanine aminotransferase [Enzymatic activity/volume] in Serum or Plasma [facility] Albumin [Mass/volume] in Ser um or Plasma by Bromocresol green (BCG) dye binding methoOrdered By: João Powell on 03-06-2024 Albumin BCG dye [Mass/Vol] 3.3 g/dL Low 3.5-5.7 [facility] Albumin BCG dye [Mass/Vol] Albumin [Mass/volume] in Serum or Plasma by Bromocresol green (BCG) dye binding metho Low 3.5-5.7 [facility] Alkaline phosphatase [Enzyma tic activity/volume] in Serum or PlasmaOrdered By: João Powell on 03-06-2024 ALP [Catalytic activity/Vol] 101 U/L Normal 34-104 [facility] Comment on above: Performed By: #### M G, PHOS, CMP, DIFF CBC ####[facility] [id number] ALP [Catalytic activity/Vol] Alkaline phosphatase [Enzymatic activity/volume] in Serum or Plasma 34-104 [facility] Anisocytosis LM Ql (Bld)Orde red By: João Powell on 03-06-2024 Anisocytosis Ql (Bld) Anisocytosis [Pres ence] in Blood by Light microscopy [facility] Anisocytosis [Presence] in B lood by Light microscopyOrdered By: João Powell on 03-06-2024 Anisocytosis Ql (Bld) Marked Normal [facility] Comment on above: Performed By: #### M G, PHOS, CMP, DIFF CBC ####[facility] [id number] Aspartate aminotransferase [ Enzymatic activity/volume] in Serum or PlasmaOrdered By: João Powell on 03-06-2024 AST [Catalytic activity/Vol] 14 U/L Normal 13-39 [facility] Comment on above: Performed By: #### M G, PHOS, CMP, DIFF CBC ####[facility] [id number] [place] [id number] [facility] AST [Catalytic activity/Vol] Aspartate aminotransferase [Enzymatic activity/volume] in Serum or Plasma 13-39 [facility] Basophils Auto (Bld) [#/Vol] Ordered By: João Powell on 03-06-2024 Basophils (Bld) [#/Vol] N/A [facility] Basophils (Bld) [#/Vol] Automated basophil count [facility] Basophils/100 WBC Auto (Bld) Ordered By: João Powell on 03-06-2024 Basophils/100 WBC (Bld) N/A [facility] Basophils/100 WBC (Bld) Automated basophil % [facility] Basophils/100 WBC Manual cnt (Bld)Ordered By: João Powell on 03-06-2024 Basophils/100 WBC (Bld) Basophils/100 leukocytes in Blood by Manual count 0-2 [facility] Basophils/100 leukocytes in Blood by Manual countOrdered By: João Powell on 10-02-2024 Basophils/100 WBC (Bld) 1 % Normal 0-2 [facility] Comment on above: Performed By: #### M G, PHOS, CMP, DIFF CBC ####[facility] [place] [address] [facility] Bilirubin.total [Mass/volume ] in Serum or PlasmaOrdered By: João Powell on 03-06-2024 Bilirubin [Mass/Vol] 0.4 mg/dL Normal 0.3-1.0 [facility] Comment on above: Performed By: #### M G, PHOS, CMP, DIFF CBC ####[address] [place] [place] [address] [facility] Bilirubin [Mass/Vol] Bilirubin.total [Mass/volume] in Serum or Plasma 0.3-1.0 [facility] Calcium [Mass/volume] in Ser um or PlasmaOrdered By: João Powell on 03-06-2024 Calcium [Mass/Vol] 8.7 mg/dL Normal 8.6-10.3 [facility] Comment on above: Performed By: #### M G, PHOS, CMP, DIFF CBC ####[address] [address] [facility] Calcium [Mass/Vol] Calcium [Mass/volume ] in Serum or Plasma 8.6-10.3 [facility] Capillary blood glucose ashley urement by glucometer (mass/volume)Ordered By: João Powell on 03-06-2024 Glucose [Mass/Vol] 169 mg/dL Normal [facility] Comment on above: Random Glucose Refer ence Range is dependent on time and content of last meal. Glucose of more than 200 mg/dL in a nonstressed, ambulatory subject supports the diagnosis of Diabetes Mellitus. Result Comment: [place] Glucose Reference Range is dependent on time and content of last meal. Glucose of more than 200 mg/dL in a nonstressed, ambulatory subject supports the diagnosis of Diabetes Mellitus.PERFORMED BY:[address] [place], [place] [phone] MEDICAL DIRECTORCLIFFORD LOBATO M.D. Performed By: #### G LULS ####Point of Care testing, Carbon dioxide, total [Moles /volume] in Serum or PlasmaOrdered By: João Powell on 03-06-2024 CO2 [Moles/Vol] 24.3 mmol/L Normal 21.0-31.0 [facility] Comment on above: Performed By: #### M G, PHOS, CMP, DIFF CBC ####[address] [address] [facility] CO2 [Moles/Vol] Carbon dioxide, tota l [Moles/volume] in Serum or Plasma 21.0-31.0 [facility] Chloride [Moles/volume] in S ilia or PlasmaOrdered By: João Powell on 03-06-2024 Chloride [Moles/Vol] 107 mmol/L Normal 98-107 [facility] Comment on above: Performed By: #### M G, PHOS, CMP, DIFF CBC ####[place] [id number] [facility] Chloride [Moles/Vol] Chloride [Moles/vol ume] in Serum or Plasma 98-107 [facility] Comprehensive Metabolic Pane guy 03-06-2024 Albumin [Mass/Vol] 3.3 g/dL Low 3.5-5.7 [facility] Comment on above: Performed By: #### M G, PHOS, CMP, DIFF CBC ####[address] [address] [place] Creatinine Clr Calc Pharmacy 62.24 Normal [facility] Comment on above: Performed By: #### M G, PHOS, CMP, DIFF CBC ####[address] [address] [place] GFR/1.73 sq M.predicted MDRD (S/P/Bld) [Vol rate/Area] 57.276 mL/min/{1.73_m2} Normal [facility] Comment on above: Performed By: #### M G, PHOS, CMP, DIFF CBC ####[address] [address] [place] Creatinine [Mass/volume] in Serum or PlasmaOrdered By: João Powell on 03-06-2024 Creatinine [Mass/Vol] 1.42 mg/dL High 0.70-1.30 [facility] Comment on above: Performed By: #### M G, PHOS, CMP, DIFF CBC ####[address] Creatinine [Mass/Vol] Creatinine [Mass/v olume] in Serum or Plasma High 0.70-1.30 [facility] Dacrocytes [Presence] in Blo od by Light microscopyOrdered By: João Powell on 03-06-2024 Dacrocytes LM Ql (Bld) Teardrop cell detection [facility] Diff and CBCon 03-06-2024 Hypochromasia Slight Normal [facility] Comment on above: Performed By: #### M G, PHOS, CMP, DIFF CBC ####[address] Large Platelets Slight Normal [facility] Comment on above: Result Comment: PERF ORMED BY:[address] [place], [place] [phone] MEDICAL DIRECTORCLIFFORD LOBATO M.D. Performed By: #### M G, PHOS, CMP, DIFF CBC ####[address] Mean Corpuscular HGB Conc 32.0 g/dL Low 32.5-35.6 [facility] Comment on above: Performed By: #### M G, PHOS, CMP, DIFF CBC ####[place] [id number] [facility] Microcytosis Slight Normal [facility] Comment on above: Performed By: #### M G, PHOS, CMP, DIFF CBC ####[place] [id number] [facility] Platelet Estimate Normal Normal Normal [facility] Comment on above: Performed By: #### M G, PHOS, CMP, DIFF CBC ####[address] Polychromasia Slight Normal [facility] Comment on above: Performed By: #### M G, PHOS, CMP, DIFF CBC ####[place] [address] [address] Tear Drop Cells Slight Normal [facility] Comment on above: Performed By: #### M G, PHOS, CMP, DIFF CBC ####[address] Eosinophils Auto (Bld) [#/Vo l]Ordered By: João Powell on 03-06-2024 Eosinophils (Bld) [#/Vol] N/A [facility] Eosinophils (Bld) [#/Vol] Automated eosinophil count [facility] Eosinophils/100 WBC Auto (Bl d)Ordered By: João Powell on 03-06-2024 Eosinophils/100 WBC (Bld) N/A [facility] Eosinophils/100 WBC (Bld) Automated eosinophil % [facility] Eosinophils/100 WBC Manual c nt (Bld)Ordered By: João Powell on 03-06-2024 Eosinophils/100 WBC (Bld) Eosinophils/100 leukocytes in Blood by Manual count 1-3 [facility] Eosinophils/100 leukocytes i n Blood by Manual countOrdered By: João Powell on 03-06-2024 Eosinophils/100 WBC (Bld) 1 % Normal 1-3 [facility] Comment on above: Performed By: #### M G, PHOS, CMP, DIFF CBC ####[address] Erythrocyte distribution wid th Auto (RBC) [Ratio]Ordered By: João Powell on 03-06-2024 Erythrocyte distribution width (RBC) [Ratio] Erythrocyte distribution width [Ratio] by Automated count High 12.0-14.8 [facility] Erythrocyte distribution wid th [Ratio] by Automated countOrdered By: oJão Powell on 03-06-2024 Erythrocyte distribution width (RBC) [Ratio] 21.1 % High 12.0-14.8 [facility] Comment on above: Performed By: #### M G, PHOS, CMP, DIFF CBC ####[facility] [address] [place] [address] [facility] Erythrocyte morphology findi ng [Identifier] in BloodOrdered By: João Powell on 03-06-2024 RBC morphology finding Nom (Bld) RBC morphology [facility] Erythrocytes [#/volume] in B lood by Automated countOrdered By: João Powell on 03-06-2024 RBC (Bld) [#/Vol] 3.68 10*6/uL Low 3.90-5.60 [facility] Comment on above: Performed By: #### M G, PHOS, CMP, DIFF CBC ####[facility] [address] [place] [address] [facility] Globulin Calc (S) [Mass/Vol] Ordered By: João Powell on 03-06-2024 Globulin (S) [Mass/Vol] Serum globulin measurement by calculation (mass/volume) [facility] Glucose Glucometer (BldC) [M ass/Vol]Ordered By: João Powell on 03-06-2024 Glucose [Mass/Vol] Capillary blood gluc ose measurement by glucometer (mass/volume) [facility] Comment on above: Random Glucose Refer ence Range is dependent on time and content of last meal. Glucose of more than 200 mg/dL in a nonstressed, ambulatory subject supports the diagnosis of Diabetes Mellitus. Glucose Poct Glucometerson 1 Glucose [Mass/Vol] 128 mg/dL Normal [facility] Comment on above: Result Comment: [facility] Glucose Reference Range is dependent on time and content of last meal. Glucose of more than 200 mg/dL in a nonstressed, ambulatory subject supports the diagnosis of Diabetes Mellitus.PERFORMED BY:[facility] [place], [place] [phone] MEDICAL DIRECTORCLIFFORD LOBATO M.D. Performed By: #### G LULS ####Point of Care testing, Glucose [Mass/volume] in Ser um or PlasmaOrdered By: João Powell on 03-06-2024 Glucose [Mass/Vol] 99 mg/dL Normal 70-100 [facility] Comment on above: ADA recommended refe rence rangeRandom Glucose Reference Range is dependent on time and content of last meal. Glucose of more than 200 mg/dL in a nonstressed, ambulatory subject supports the diagnosis of Diabetes Mellitus. Result Comment: [facility] Glucose Reference Range is dependent on time and content of last meal. Glucose of more than 200 mg/dL in a nonstressed, ambulatory subject supports the diagnosis of Diabetes Mellitus. ADA recommended reference range Performed By: #### M G, PHOS, CMP, DIFF CBC ####[facility] [address] [place] [id number] [facility] Glucose [Mass/Vol] Glucose [Mass/volume ] in Serum or Plasma 70-100 [facility] Comment on above: ADA recommended [...] of Blood by Automated count Low 38.8-50.0 [facility] Hematocrit [Volume Fraction] of Blood by Automated countOrdered By: João Powell on 03-06-2024 Hematocrit (Bld) [Volume fraction] 25.8 % Low 38.8-50.0 [facility] Comment on above: Performed By: #### M G, PHOS, CMP, DIFF CBC ####[place] [address] [place] [id number] [facility] Hemoglobin [Mass/volume] in BloodOrdered By: João Powell on 03-06-2024 Hemoglobin (Bld) [Mass/Vol] 8.3 g/dL Low 13.0-17.0 [facility] Comment on above: Performed By: #### M G, PHOS, CMP, DIFF CBC ####[facility] [place] [id number] [facility] Hemoglobin (Bld) [Mass/Vol] Hemoglobin [Mass/volume] in Blood Low 13.0-17.0 [facility] Hypochromia LM Ql (Bld)Order ed By: João Powell on 03-06-2024 Hypochromia Ql (Bld) Slight [facility] Hypochromia Ql (Bld) Hypochromia [Presen ce] in Blood by Light microscopy [facility] Leukocytes [#/volume] correc jorge for nucleated erythrocytes in Blood by Automated counOrdered By: João Powell on 03-06-2024 WBC corrected for nucl RBC Auto (Bld) [#/Vol] 6.8 10*3/uL 4.1-10.5 [facility] WBC corrected for nucl RBC Auto (Bld) [#/Vol] Leukocytes [#/volume] corrected for nucleated erythrocytes in Blood by Automated coun 4.1-10. [facility] Leukocytes [#/volume] in Blo od by Automated countOrdered By: João Powell on 03-06-2024 WBC (Bld) [#/Vol] 6.8 10*3/uL Normal 4.1-10.5 [facility] Comment on above: Performed By: #### M G, PHOS, CMP, DIFF CBC ####[facility] [address] [place] [id number] [facility] Lymphocytes Auto (Bld) [#/Vo l]Ordered By: João Powell on 03-06-2024 Lymphocytes (Bld) [#/Vol] N/A [facility] Lymphocytes (Bld) [#/Vol] Lymphocytes [#/volume] in Blood by Automated count [facility] Lymphocytes/100 WBC Auto (Bl d)Ordered By: João Powell on 03-06-2024 Lymphocytes/100 WBC (Bld) N/A [facility] Lymphocytes/100 WBC (Bld) Lymphocytes/100 leukocytes in Blood by Automated count [facility] Lymphocytes/100 WBC Manual c nt (Bld)Ordered By: João Powell on 03-06-2024 Lymphocytes/100 WBC (Bld) Lymphocytes/100 leukocytes in Blood by Manual count [facility] Lymphocytes/100 leukocytes i n Blood by Manual countOrdered By: João Powell on 03-06-2024 Lymphocytes/100 WBC (Bld) 18 % Normal [facility] Comment on above: Performed By: #### M G, PHOS, CMP, DIFF CBC ####[address] MCH Auto (RBC) [Entitic mass ]Ordered By: João Powell on 03-06-2024 MCH (RBC) [Entitic mass] MCH [Entitic mass] by Automated count Low 27.5-35.2 [facility] MCH [Entitic mass] by Automa jorge countOrdered By: João Powell on 03-06-2024 MCH (RBC) [Entitic mass] 22.4 pg Low 27.5-35.2 [facility] Comment on above: Performed By: #### M G, PHOS, CMP, DIFF CBC ####[address] MCHC Auto (RBC) [Mass/Vol]Or dered By: João Powell on 03-06-2024 MCHC (RBC) [Mass/Vol] 32.0 g/dL Low 32.5-35.6 [facility] MCHC (RBC) [Mass/Vol] MCHC [Mass/volume] by Automated count Low 32.5-35.6 [facility] MCV Auto (RBC) [Entitic vol] Ordered By: João Powell on 03-06-2024 MCV (RBC) [Entitic vol] MCV [Entitic volume] by Automated count Low 83.5-101 [facility] MCV [Entitic volume] by Auto mated countOrdered By: João Powell on 03-06-2024 MCV (RBC) [Entitic vol] 70.2 fL Low 83.5-101 [facility] Comment on above: Performed By: #### M G, PHOS, CMP, DIFF CBC ####[address] Magnesium [Mass/volume] in S ilia or PlasmaOrdered By: João Powell on 03-06-2024 Magnesium [Mass/Vol] 1.6 mg/dL Low 1.9-2.7 [facility] Comment on above: Result Comment: PERF ORMED BY:[address] [place], [place] [id number] MEDICAL DIRECTORCLIFFORD LOBATO M.D. Performed By: #### M G, PHOS, CMP, DIFF CBC ####[facility] [place] [address] [facility] Magnesium [Mass/Vol] Magnesium [Mass/vol ume] in Serum or Plasma Low 1.9-2.7 [facility] Manual blood segmented neutr ophils/100 leukocytesOrdered By: João Powell on 03-06-2024 Segmented neutrophils/100 WBC (Bld) 72 % High 50-70 [facility] Comment on above: Performed By: #### M Ines, PHOS, CMP, DIFF CBC ####[facility] [place] [address] [facility] Microcytes LM Ql (Bld)Ordere d By: João Powell on 03-06-2024 Microcytes Ql (Bld) Slight [facility] Microcytes Ql (Bld) Microcytes [Presence ] in Blood by Light microscopy [facility] Monocytes Auto (Bld) [#/Vol] Ordered By: João Powell on 03-06-2024 Monocytes (Bld) [#/Vol] N/A [facility] Monocytes (Bld) [#/Vol] Automated blood monocyte count [facility] Monocytes/100 WBC Auto (Bld) Ordered By: João Powell on 03-06-2024 Monocytes/100 WBC (Bld) N/A [facility] Monocytes/100 WBC (Bld) Automated monocyte % [facility] Monocytes/100 WBC Manual cnt (Bld)Ordered By: João Powell on 03-06-2024 Monocytes/100 WBC (Bld) Monocytes/100 leukocytes in Blood by Manual count [address] Monocytes/100 leukocytes in Blood by Manual countOrdered By: João Powell on 03-06-2024 Monocytes/100 WBC (Bld) 8 % Normal [address] [place] [address] Comment on above: Performed By: #### M G, PHOS, CMP, DIFF CBC ####[facility] [address] [place] [id number] [facility] Neutrophils Auto (Bld) [#/Vo l]Ordered By: João Powell on 03-06-2024 Neutrophils (Bld) [#/Vol] N/A [facility] Neutrophils (Bld) [#/Vol] Neutrophils [#/volume] in Blood by Automated count [facility] Neutrophils/100 WBC Auto (Bl d)Ordered By: João Powell on 03-06-2024 Neutrophils/100 WBC (Bld) N/A [facility] Neutrophils/100 WBC (Bld) Automated neutrophil % [facility] No Panel InformationOrdered By: João Powell on 03-06-2024 Estimated GFR (CKD-EPI) 57.276 mL/Min [facility] Creatinine Clearance (Chem 62.24 [facility] 57.276 mL/Min [facility] 62.24 [facility] Nucleated erythrocytes [Pres ence] in Blood by Automated countOrdered By: João Powell on 03-06-2024 Nucleated RBC Auto Ql (Bld) N/A [facility] Nucleated RBC Auto Ql (Bld) Nucleated erythrocytes [Presence] in Blood by Automated count [facility] Phosphate [Mass/volume] in S ilia or PlasmaOrdered By: João Powell on 03-06-2024 Phosphate [Mass/Vol] 3.2 mg/dL Normal 2.5-4.5 [facility] Comment on above: Performed By: #### M G, PHOS, CMP, DIFF CBC ####[facility] [address] [place] [address] [facility] Phosphate [Mass/Vol] Phosphate [Mass/vol ume] in Serum or Plasma 2.5-4.5 [facility] Platelet adequacy [Presence] in Blood by Light microscopyOrdered By: João Powell on 03-06-2024 Platelets LM Ql (Bld) Normal Normal [facility] Platelets LM Ql (Bld) Platelet adequacy [Presence] in Blood by Light microscopy Normal [facility] Platelet mean volume Auto (B ld) [Entitic vol]Ordered By: João Powell on 03-06-2024 Platelet mean volume (Bld) [Entitic vol] Platelet mean volume [Entitic volume] in Blood by Automated count 6.6-10.1 [facility] Platelet mean volume [Entiti c volume] in Blood by Automated countOrdered By: João Powell on 03-06-2024 Platelet mean volume (Bld) [Entitic vol] 8.1 fL Normal 6.6-10.1 [facility] Comment on above: Performed By: #### M G, PHOS, CMP, DIFF CBC ####[facility] [address] [place] [id number] [facility] Platelet morphology finding [Identifier] in BloodOrdered By: João Powell on 03-06-2024 Platelet morphology finding Nom (Bld) N/A [facility] Platelet morphology finding Nom (Bld) Platelet morphology finding [Identifier] in Blood [facility] Platelets Auto (Bld) [#/Vol] Ordered By: João Powell on 03-06-2024 Platelets (Bld) [#/Vol] Platelets [#/volume] in Blood by Automated count 150-450 [facility] Platelets Large [Presence] i n Blood by Light microscopyOrdered By: João Powell on 03-06-2024 Platelets Large LM Ql (Bld) Slight [facility] Platelets Large LM Ql (Bld) Platelets Large [Presence] in Blood by Light microscopy [facility] Platelets [#/volume] in Bloo d by Automated countOrdered By: João Powell on 03-06-2024 Platelets (Bld) [#/Vol] 325 10*3/uL Normal 150-450 [facility] Comment on above: Performed By: #### M G, PHOS, CMP, DIFF CBC ####[facility] [address] [place] [address] [facility] Polychromasia [Presence] in Blood by Light microscopyOrdered By: João Powell on 03-06-2024 Polychromasia LM Ql (Bld) Slight [facility] Polychromasia LM Ql (Bld) Polychromasia [Presence] in Blood by Light microscopy [facility] Potassium [Moles/volume] in Serum or PlasmaOrdered By: João Powell on 03-06-2024 Potassium [Moles/Vol] 4.2 mmol/L Normal 3.5-5.1 [facility] Comment on above: Performed By: #### M Ines, PHOS, CMP, DIFF CBC ####[facility] Potassium [Moles/Vol] Potassium [Moles/v olume] in Serum or Plasma 3.5-5.1 [facility] Protein [Mass/volume] in Ser um or PlasmaOrdered By: João Powell on 03-06-2024 Protein [Mass/Vol] 6.1 g/dL Low 6.4-8.9 [facility] Comment on above: Performed By: #### M Ines, PHOS, CMP, DIFF CBC ####[address] Protein [Mass/Vol] Protein [Mass/volume ] in Serum or Plasma Low 6.4-8.9 [facility] RBC Auto (Bld) [#/Vol]Ordere d By: João Powell on 03-06-2024 RBC (Bld) [#/Vol] Erythrocytes [#/volu me] in Blood by Automated count Low 3.90-5.60 [facility] RBC morphologyOrdered By: Derek Powell on 03-06-2024 RBC morphology finding Nom (Bld) N/A [facility] Segmented neutrophils/100 WB C Manual cnt (Bld)Ordered By: João Powell on 03-06-2024 Segmented neutrophils/100 WBC (Bld) Manual blood segmented neutrophils/100 leukocytes High 50-70 [facility] Serum globulin measurement b y calculation (mass/volume)Ordered By: João Powell on 03-06-2024 Globulin (S) [Mass/Vol] 2.8 g/dL Normal [facility] Comment on above: Performed By: #### M G, PHOS, CMP, DIFF CBC ####[address] Serum or plasma albumin/glob ulin mass ratioOrdered By: João Powell on 10-02-2024 Albumin/Globulin [Mass ratio] 1.2 {ratio} Normal [facility] Comment on above: Performed By: #### M G, PHOS, CMP, DIFF CBC ####[place] [address] [address] Albumin/Globulin [Mass ratio] Serum or plasma albumin/globulin mass ratio [facility] Serum or plasma anion gap de terminationOrdered By: João Powell on 03-06-2024 Anion gap [Moles/Vol] 9.9 mmol/L Normal 6.0-15.0 [facility] Comment on above: Performed By: #### M G, PHOS, CMP, DIFF CBC ####[address] Anion gap [Moles/Vol] Serum or plasma an ion gap determination 6.0-15.0 [facility] Sodium [Moles/volume] in Ser um or PlasmaOrdered By: João Powell on 03-06-2024 Sodium [Moles/Vol] 137 mmol/L Normal 136-145 [facility] Comment on above: Performed By: #### M G, PHOS, CMP, DIFF CBC ####[address] Sodium [Moles/Vol] Sodium [Moles/volume ] in Serum or Plasma 136-145 [facility] Teardrop cell detectionOrder ed By: João Powell on 03-06-2024 Dacrocytes LM Ql (Bld) [facility] Urea nitrogen [Mass/volume] in Serum or PlasmaOrdered By: João Powell on 03-06-2024 Urea nitrogen [Mass/Vol] 17 mg/dL Normal 25 [facility] Comment on above: Performed By: #### M G, PHOS, CMP, DIFF CBC ####[address] Urea nitrogen [Mass/Vol] Urea nitrogen [Mass/volume] in Serum or Plasma - [facility] WBC Auto (Bld) [#/Vol]Ordere d By: João Powell on 03-06-2024 WBC (Bld) [#/Vol] Leukocytes [#/volume ] in Blood by Automated count 4.1-10.5 [facility] Complete Blood Count Auto Di ffon 03-05-2024 Basophils (Bld) [#/Vol] 0.1 10*3/uL Normal 0.0-0.2 [facility] Comment on above: Result Comment: PERF ORMED BY:[address] [place], [place] [id number] MEDICAL DIRECTORCLIFFORD LOBATO M.D. Performed By: #### P HOS, MG, CBC, CMP ####[address] Basophils/100 WBC (Bld) 1.1 % Normal . [facility] Comment on above: Performed By: #### P HOS, MG, CBC, CMP ####[address] Eosinophils (Bld) [#/Vol] 0.2 10*3/uL Normal 0.0-0.45 [facility] Comment on above: Performed By: #### P HOS, MG, CBC, CMP ####[address] Eosinophils/100 WBC (Bld) 2.8 % Normal . [facility] Comment on above: Performed By: #### P HOS, MG, CBC, CMP ####[address] Erythrocyte distribution width (RBC) [Ratio] 21.4 % High 12.0-14.8 [facility] Comment on above: Performed By: #### P HOS, MG, CBC, CMP ####[address] Hematocrit (Bld) [Volume fraction] 26.8 % Low 38.8-50.0 [facility] Comment on above: Performed By: #### P HOS, MG, CBC, CMP ####[address] Hemoglobin (Bld) [Mass/Vol] 8.6 g/dL Low 13.0-17.0 [facility] Comment on above: Performed By: #### P HOS, MG, CBC, CMP ####[address] Lymphocytes (Bld) [#/Vol] 1.3 10*3/uL Normal 1.00-4.8 [facility] Comment on above: Performed By: #### P HOS, MG, CBC, CMP ####[address] Lymphocytes/100 WBC (Bld) 16.1 % Normal . [facility] Comment on above: Performed By: #### P HOS, MG, CBC, CMP ####[address] MCH (RBC) [Entitic mass] 22.4 pg Low 27.5-35.2 [facility] Comment on above: Performed By: #### P HOS, MG, CBC, CMP ####[address] MCV (RBC) [Entitic vol] 70.1 fL Low 83.5-101 [facility] Comment on above: Performed By: #### P HOS, MG, CBC, CMP ####[address] Mean Corpuscular HGB Conc 31.9 g/dL Low 32.5-35.6 [facility] Comment on above: Performed By: #### P HOS, MG, CBC, CMP ####[address] Monocytes (Bld) [#/Vol] 1.0 10*3/uL High 0.0-0.8 [facility] Comment on above: Performed By: #### P HOS, MG, CBC, CMP ####[address] Monocytes/100 WBC (Bld) 12.4 % Normal . [facility] Comment on above: Performed By: #### P HOS, MG, CBC, CMP ####[address] Neutrophils (Bld) [#/Vol] 5.6 10*3/uL Normal 1.8-7.7 [facility] Comment on above: Performed By: #### P HOS, MG, CBC, CMP ####[address] Neutrophils/100 WBC (Bld) 67.6 % Normal . [facility] Comment on above: Performed By: #### P HOS, MG, CBC, CMP ####[address] NRBC% 0.0 /100{WBC} Normal 0-0.5 [facility] Comment on above: Performed By: #### P HOS, MG, CBC, CMP ####[address] Platelet mean volume (Bld) [Entitic vol] 7.9 fL Normal 6.6-10.1 [facility] Comment on above: Performed By: #### P HOS, MG, CBC, CMP ####[address] Platelets (Bld) [#/Vol] 361 10*3/uL Normal 150-450 [facility] Comment on above: Performed By: #### P HOS, MG, CBC, CMP ####[address] RBC (Bld) [#/Vol] 3.83 10*6/uL Low 3.90-5.60 [facility] Comment on above: Performed By: #### P HOS, MG, CBC, CMP ####[address] WBC (Bld) [#/Vol] 8.3 10*3/uL Normal 4.1-10.5 [facility] Comment on above: Performed By: #### P HOS, MG, CBC, CMP ####[address] Comprehensive Metabolic Pane guy 03-05-2024 Albumin [Mass/Vol] 3.3 g/dL Low 3.5-5.7 [facility] Comment on above: Performed By: #### P HOS, MG, CBC, CMP ####[facility] [place] [id number] [facility] Albumin/Globulin [Mass ratio] 1.2 {ratio} Normal [facility] Comment on above: Performed By: #### P HOS, MG, CBC, CMP ####[place] [address] [place] [id number] [facility] ALP [Catalytic activity/Vol] 98 U/L Normal 34-104 [facility] Comment on above: Performed By: #### P HOS, MG, CBC, CMP ####[place] [address] [place] [id number] [facility] ALT [Catalytic activity/Vol] 10 U/L Normal 7-52 [facility] Comment on above: Performed By: #### P HOS, MG, CBC, CMP ####[place] [id number] [facility] Anion gap [Moles/Vol] 9.9 mmol/L Normal 6.0-15.0 [facility] Comment on above: Performed By: #### P HOS, MG, CBC, CMP ####[place] [id number] [facility] AST [Catalytic activity/Vol] 14 U/L Normal 13-39 [facility] Comment on above: Performed By: #### P HOS, MG, CBC, CMP ####[place] [id number] [facility] Bilirubin [Mass/Vol] 0.3 mg/dL Normal 0.3-1.0 [facility] Comment on above: Performed By: #### P HOS, MG, CBC, CMP ####[place] [id number] [facility] Calcium [Mass/Vol] 8.6 mg/dL Normal 8.6-10.3 [facility] Comment on above: Performed By: #### P HOS, MG, CBC, CMP ####[address] Chloride [Moles/Vol] 107 mmol/L Normal 98-107 [facility] Comment on above: Performed By: #### P HOS, MG, CBC, CMP ####[address] CO2 [Moles/Vol] 25.2 mmol/L Normal 21.0-31.0 [facility] Comment on above: Performed By: #### P HOS, MG, CBC, CMP ####[address] Creatinine [Mass/Vol] 1.49 mg/dL High 0.70-1.30 [facility] Comment on above: Performed By: #### P HOS, MG, CBC, CMP ####[address] Creatinine Clr Calc Pharmacy 59.31 Normal [facility] Comment on above: Performed By: #### P HOS, MG, CBC, CMP ####[address] GFR/1.73 sq M.predicted MDRD (S/P/Bld) [Vol rate/Area] 54.062 mL/min/{1.73_m2} Normal [facility] Comment on above: Performed By: #### P HOS, MG, CBC, CMP ####[address] Globulin (S) [Mass/Vol] 2.8 g/dL Normal [facility] Comment on above: Performed By: #### P HOS, MG, CBC, CMP ####[address] Glucose [Mass/Vol] 105 mg/dL High 70-100 [facility] Comment on above: Result Comment: [place] Glucose Reference Range is dependent on time and content of last meal. Glucose of more than 200 mg/dL in a nonstressed, ambulatory subject supports the diagnosis of Diabetes Mellitus. ADA recommended reference range Performed By: #### P HOS, MG, CBC, CMP ####[address] [address] [facility] Potassium [Moles/Vol] 4.1 mmol/L Normal 3.5-5.1 [facility] Comment on above: Performed By: #### P HOS, MG, CBC, CMP ####[address] [address] [facility] Protein [Mass/Vol] 6.1 g/dL Low 6.4-8.9 [facility] Comment on above: Performed By: #### P HOS, MG, CBC, CMP ####[place] [id number] [facility] Sodium [Moles/Vol] 138 mmol/L Normal 136-145 [facility] Comment on above: Performed By: #### P HOS, MG, CBC, CMP ####[place] [id number] [facility] Urea nitrogen [Mass/Vol] 24 mg/dL Normal 7-25 [facility] Comment on above: Performed By: #### P HOS, MG, CBC, CMP ####[place] [id number] [facility] Glucose Poct Glucometerson 1 Glucose [Mass/Vol] 151 mg/dL Normal [facility] Comment on above: Result Comment: [facility] Glucose Reference Range is dependent on time and content of last meal. Glucose of more than 200 mg/dL in a nonstressed, ambulatory subject supports the diagnosis of Diabetes Mellitus.PERFORMED BY:[address] [place], [place] [phone] MEDICAL DIRECTORCLIFFORD LOBATO M.D. Performed By: #### G LULS ####Point of Care testing, Glucose [Mass/Vol] 106 mg/dL Normal [facility] Comment on above: Result Comment: [facility] Glucose Reference Range is dependent on time and content of last meal. Glucose of more than 200 mg/dL in a nonstressed, ambulatory subject supports the diagnosis of Diabetes Mellitus.PERFORMED BY:[address] [place], [place] [phone] MEDICAL DIRECTORCLIFFORD LOBATO M.D. Performed By: #### G LULS ####Point of Care testing, Glucose [Mass/Vol] 132 mg/dL Normal [facility] Comment on above: Result Comment: [place] [facility] Glucose Reference Range is dependent on time and content of last meal. Glucose of more than 200 mg/dL in a nonstressed, ambulatory subject supports the diagnosis of Diabetes Mellitus.PERFORMED BY:[address] [place], [place] [phone] MEDICAL DIRECTORCLIFFORD LOBATO M.D. Performed By: #### G LULS ####Point of Care testing, Commemt1 Glu2: Cleaned Meter Normal [facility] Comment on above: Result Comment: PERF ORMED BY:[address] [place], [place] [phone] MEDICAL DIRECTORCLIFFORD LOBATO M.D. Performed By: #### G LULS ####Point of Care testing, Glucose [Mass/Vol] 151 mg/dL Normal [facility] Comment on above: Result Comment: [place] [facility] Glucose Reference Range is dependent on time and content of last meal. Glucose of more than 200 mg/dL in a nonstressed, ambulatory subject supports the diagnosis of Diabetes Mellitus. Performed By: #### G LULS ####Point of Care testing, Magnesiumon 03-05-2024 Magnesium [Mass/Vol] 1.4 mg/dL Low 1.9-2.7 [facility] Comment on above: Result Comment: PERF ORMED BY:[address] [place], [place] [phone] MEDICAL DIRECTORCLIFFORD LOBATO M.D. Performed By: #### P HOS, MG, CBC, CMP ####[address] [address] [facility] No Panel InformationOrdered By: João Powell on 03-05-2024 Bedside Glucose Comment Glu2: cleaned meter [facility] Glu2: cleaned meter [facility] Phosphoruson 03-05-2024 Phosphate [Mass/Vol] 3.1 mg/dL Normal 2.5-4.5 [facility] Comment on above: Performed By: #### P HOS, MG, CBC, CMP ####[place] [address] [place] [phone] [facility] US carotid doppler BIon 10-0 US carotid doppler BI Normal [facility] ABO/Rh Retypeon 03-04-2024 ABO/RH Recheck Result Positive Normal [facility] Comment on above: Result Comment: PERF ORMED BY:[address] [place], [place] [phone] MEDICAL DIRECTORCLIFFORD LOBATO M.D. Comprehensive Metabolic Pane guy 03-04-2024 Albumin [Mass/Vol] 3.3 g/dL Low 3.5-5.7 [facility] Comment on above: Performed By: #### M G, PHOS, SCAN CBC, CMP ####[place] [phone] [facility] Albumin/Globulin [Mass ratio] 1.1 {ratio} Normal [facility] Comment on above: Performed By: #### M G, PHOS, SCAN CBC, CMP ####[place] [phone] [facility] ALP [Catalytic activity/Vol] 105 U/L High 34-104 [facility] Comment on above: Performed By: #### M G, PHOS, SCAN CBC, CMP ####[place] [phone] [facility] ALT [Catalytic activity/Vol] 9 U/L Normal 7-52 [facility] Comment on above: Performed By: #### M G, PHOS, SCAN CBC, CMP ####[place] [address] [place] [phone] [facility] Anion gap [Moles/Vol] 11.1 mmol/L Normal 6.0-15.0 Th e [facility] Comment on above: Performed By: #### M G, PHOS, SCAN CBC, CMP ####[place] [address] AST [Catalytic activity/Vol] 11 U/L Low 13-39 [facility] Comment on above: Performed By: #### M G, PHOS, SCAN CBC, CMP ####[address] Bilirubin [Mass/Vol] 0.2 mg/dL Low 0.3-1.0 [facility] Comment on above: Performed By: #### M G, PHOS, SCAN CBC, CMP ####[place] [phone] [facility] Calcium [Mass/Vol] 8.3 mg/dL Low 8.6-10.3 [facility] Comment on above: Performed By: #### M G, PHOS, SCAN CBC, CMP ####[address] Chloride [Moles/Vol] 104 mmol/L Normal 98-107 [facility] Comment on above: Performed By: #### M G, PHOS, SCAN CBC, CMP ####[address] CO2 [Moles/Vol] 27.6 mmol/L Normal 21.0-31.0 [facility] Comment on above: Performed By: #### M G, PHOS, SCAN CBC, CMP ####[address] Creatinine [Mass/Vol] 1.83 mg/dL High 0.70-1.30 [facility] Comment on above: Performed By: #### M G, PHOS, SCAN CBC, CMP ####[place] [phone] [facility] Creatinine Clr Calc Pharmacy 48.29 Normal [facility] Comment on above: Performed By: #### M G, PHOS, SCAN CBC, CMP ####[place] [phone] [facility] GFR/1.73 sq M.predicted MDRD (S/P/Bld) [Vol rate/Area] 42.245 mL/min/{1.73_m2} Normal [facility] Comment on above: Performed By: #### M Ines, PHOS, SCAN CBC, CMP ####[address] Globulin (S) [Mass/Vol] 2.9 g/dL Normal [facility] Comment on above: Performed By: #### M G, PHOS, SCAN CBC, CMP ####[address] Glucose [Mass/Vol] 150 mg/dL High 70-100 [facility] Comment on above: Result Comment: [facility] Glucose Reference Range is dependent on time and content of last meal. Glucose of more than 200 mg/dL in a nonstressed, ambulatory subject supports the diagnosis of Diabetes Mellitus. ADA recommended reference range Performed By: #### M G, PHOS, SCAN CBC, CMP ####[address] Potassium [Moles/Vol] 3.7 mmol/L Normal 3.5-5.1 [facility] Comment on above: Performed By: #### M Ines, PHOS, SCAN CBC, CMP ####[address] Protein [Mass/Vol] 6.2 g/dL Low 6.4-8.9 [facility] Comment on above: Performed By: #### M G, PHOS, SCAN CBC, CMP ####[address] Sodium [Moles/Vol] 139 mmol/L Normal 136-145 [facility] Comment on above: Performed By: #### M G, PHOS, SCAN CBC, CMP ####[address] Urea nitrogen [Mass/Vol] 36 mg/dL High 7-25 [facility] Comment on above: Performed By: #### M G, PHOS, SCAN CBC, CMP ####[address] [place] [address] [facility] ECH echo transthoracicon ECH echo transthoracic Normal Th e [facility] Ferritinon 03-04-2024 Ferritin Normal 23.9-336.2 [facility] Comment on above: Order Comment: Comme nt add Result Comment: Spec imen hemolyzed, redraw requested Performed By: #### T SH3, LILA, FE and TIBC, [id number] ####[address] [address] [facility] Ferritin [Mass/volume] in Se rum or PlasmaOrdered By: João Powell on 03-04-2024 Ferritin [Mass/Vol] 7.7 ng/mL Low 23.9-336.2 [facility] Ferritin [Mass/Vol] Ferritin [Mass/volum e] in Serum or Plasma Low 23.9-336.2 [facility] Folate [Mass/volume] in Seru m or PlasmaOrdered By: João Powell on 03-04-2024 Folate [Mass/Vol] 7.8 ng/mL >5.9 [facility] Comment on above: Folate reference ran ge: >5.9 ng/mlThe WHO technical consultation on folate and vitamin [id number] has determined that folate concentrations lessthan 4 ng/ml are considered deficient. Folate [Mass/Vol] Folate [Mass/volume] in Serum or Plasma >5.9 [facility] Comment on above: Folate reference ran ge: >5.9 ng/mlThe WHO technical consultation on folate and vitamin [id number] has determined that folate concentrations lessthan 4 ng/ml are considered deficient. Glucose Poct Glucometerson 0 03-04-2024 Commemt1 Glu2: Cleaned Meter Normal [facility] Comment on above: Result Comment: PERF ORMED BY:[address] [place], [place] [phone] MEDICAL DIRECTORCLIFFORD LOBATO M.D. Performed By: #### G LULS ####Point of Care testing, Glucose [Mass/Vol] 213 mg/dL Normal [facility] Comment on above: Result Comment: [place] [facility] Glucose Reference Range is dependent on time and content of last meal. Glucose of more than 200 mg/dL in a nonstressed, ambulatory subject supports the diagnosis of Diabetes Mellitus. Performed By: #### G LULS ####Point of Care testing, Glucose [Mass/Vol] 279 mg/dL Normal [facility] Comment on above: Result Comment: [place] [facility] Glucose Reference Range is dependent on time and content of last meal. Glucose of more than 200 mg/dL in a nonstressed, ambulatory subject supports the diagnosis of Diabetes Mellitus.PERFORMED BY:[address] [place], [place] [phone] MEDICAL DIRECTORCLIFFORD LOBATO M.D. Performed By: #### G LULS ####Point of Care testing, Glucose [Mass/Vol] 236 mg/dL Normal [facility] Comment on above: Result Comment: [place] [facility] Glucose Reference Range is dependent on time and content of last meal. Glucose of more than 200 mg/dL in a nonstressed, ambulatory subject supports the diagnosis of Diabetes Mellitus.PERFORMED BY:[place] [address] [address] [place], [place] [phone] MEDICAL DIRECTORCLIFFORD LOBATO M.D. Performed By: #### G LULS ####Point of Care testing, Glucose [Mass/Vol] 242 mg/dL Normal [facility] Comment on above: Result Comment: [place] [facility] Glucose Reference Range is dependent on time and content of last meal. Glucose of more than 200 mg/dL in a nonstressed, ambulatory subject supports the diagnosis of Diabetes Mellitus.PERFORMED BY:[place] [address] [place], [place] [phone] MEDICAL DIRECTORCLIFFORD LOBATO M.D. Performed By: #### G LULS ####Point of Care testing, Iron [Mass/volume] in Serum or PlasmaOrdered By: João Powell on 03-04-2024 Iron [Mass/Vol] 13 ug/dL Low 50-212 [facility] Comment on above: Order Comment: Comme nt add Performed By: #### T SH3, LILA, FE and TIBC, [id number] ####[place] [address] [place] [phone] [facility] Iron [Mass/Vol] Iron [Mass/volume] i n Serum or Plasma Low 50-212 [facility] Iron and TIBC Profileon 02-05 % Iron Saturation 3.2 % Low 20-50 [facility] Comment on above: Order Comment: Comme nt add Performed By: #### T SH3, LILA, FE and TIBC, [id number] ####[place] [phone] [facility] Total Iron Binding Capacity 403 ug/dL Normal 255-450 [facility] Comment on above: Order Comment: Comme nt add Performed By: #### T SH3, LILA, FE and TIBC, [id number] ####[address] Iron binding capacity [Mass/ volume] in Serum or PlasmaOrdered By: João Powell on 03-04-2024 Iron binding capacity [Mass/Vol] 403 ug/dL 255-450 [facility] Iron saturation [Mass Fracti on] in Serum or PlasmaOrdered By: João Powell on 03-04-2024 Iron saturation [Mass fraction] 3.2 % Low 20-50 [facility] LeukoReduced RBCon 4 LeukoReduced RBC TRANSFUSED 03/04/24 1657 Normal [facility] MR angio MR brain w/oon 02-05 MR angio MR brain w/o Normal [facility] Magnesiumon 03-04-2024 Magnesium [Mass/Vol] 1.3 mg/dL Low 1.9-2.7 [facility] Comment on above: Result Comment: PERF ORMED BY:[place] [address] [address] [place], [place] [phone] MEDICAL DIRECTORCLIFFORD LOBATO M.D. Performed By: #### M G, PHOS, SCAN CBC, CMP ####[place] [phone] [facility] Ovalocyte detectionOrdered B y: João Powell on 03-04-2024 Ovalocytes LM Ql (Bld) Slight Fi [facility] Ovalocytes [Presence] in Blo od by Light microscopyOrdered By: João Powell on 03-04-2024 Ovalocytes LM Ql (Bld) Ovalocyte detection [facility] Phosphoruson 03-04-2024 Phosphate [Mass/Vol] 3.5 mg/dL Normal 2.5-4.5 [facility] Comment on above: Performed By: #### M G, PHOS, SCAN CBC, CMP ####[place] [address] [place] [phone] [facility] Redraw Ferritinon 03-04-2024 Redraw Ferritin 7.7 ng/mL Low 23.9-336.2 [facility] Comment on above: Performed By: #### T SH3, REDRAW B12, REDRAW LILA, REDRAW FOLATE ####[address] Redraw Folateon 03-04-2024 Redraw Folate 7.8 ng/mL Normal >5.9 [facility] Comment on above: Result Comment: Aure te reference range: >5.9 ng/ml The WHO technical consultation on folate and vitamin b12 deficiencies has determined that folate concentrations less than 4 ng/ml are considered deficient. Performed By: #### T SH3, REDRAW B12, REDRAW LILA, REDRAW FOLATE ####[address] Scan and CBCon 03-04-2024 Anisocytosis Ql (Bld) Moderate Normal [facility] Comment on above: Performed By: #### M G, PHOS, SCAN CBC, CMP ####[address] Basophils (Bld) [#/Vol] 0.1 10*3/uL Normal 0.0-0.2 [facility] Comment on above: Performed By: #### M G, PHOS, SCAN CBC, CMP ####[address] Basophils/100 WBC (Bld) 2.4 % Normal . [facility] Comment on above: Performed By: #### M G, PHOS, SCAN CBC, CMP ####[address] Eosinophils (Bld) [#/Vol] 0.2 10*3/uL Normal 0.0-0.45 [facility] Comment on above: Performed By: #### M G, PHOS, SCAN CBC, CMP ####[address] Eosinophils/100 WBC (Bld) 3.6 % Normal . [facility] Comment on above: Performed By: #### M G, PHOS, SCAN CBC, CMP ####[address] Erythrocyte distribution width (RBC) [Ratio] 20.8 % High 12.0-14.8 [facility] Comment on above: Performed By: #### M G, PHOS, SCAN CBC, CMP ####[address] Hematocrit (Bld) [Volume fraction] 23.7 % Low 38.8-50.0 [facility] Comment on above: Performed By: #### M G, PHOS, SCAN CBC, CMP ####[address] Hemoglobin (Bld) [Mass/Vol] 7.4 g/dL Low 13.0-17.0 [facility] Comment on above: Performed By: #### M G, PHOS, SCAN CBC, CMP ####[address] Hypochromasia Slight Normal [facility] Comment on above: Performed By: #### M G, PHOS, SCAN CBC, CMP ####[address] Lymphocytes (Bld) [#/Vol] 1.3 10*3/uL Normal 1.00-4.8 [facility] Comment on above: Performed By: #### M G, PHOS, SCAN CBC, CMP ####[address] Lymphocytes/100 WBC (Bld) 22.8 % Normal . [facility] Comment on above: Performed By: #### M G, PHOS, SCAN CBC, CMP ####[address] MCH (RBC) [Entitic mass] 21.8 pg Low 27.5-35.2 [facility] Comment on above: Performed By: #### M G, PHOS, SCAN CBC, CMP ####[address] MCV (RBC) [Entitic vol] 69.5 fL Low 83.5-101 [facility] Comment on above: Performed By: #### M G, PHOS, SCAN CBC, CMP ####[address] Mean Corpuscular HGB Conc 31.3 g/dL Low 32.5-35.6 [facility] Comment on above: Performed By: #### M G, PHOS, SCAN CBC, CMP ####[address] Monocytes (Bld) [#/Vol] 0.9 10*3/uL High 0.0-0.8 [facility] Comment on above: Performed By: #### M G, PHOS, SCAN CBC, CMP ####[address] Monocytes/100 WBC (Bld) 16.7 % Normal . [facility] Comment on above: Performed By: #### M G, PHOS, SCAN CBC, CMP ####[address] Neutrophils (Bld) [#/Vol] 3.0 10*3/uL Normal 1.8-7.7 [facility] Comment on above: Performed By: #### M G, PHOS, SCAN CBC, CMP ####[place] [address] [place] Neutrophils/100 WBC (Bld) 54.5 % Normal . [facility] Comment on above: Performed By: #### M G, PHOS, SCAN CBC, CMP ####[address] NRBC% 0.3 /100{WBC} Normal 0-0.5 [facility] Comment on above: Performed By: #### M G, PHOS, SCAN CBC, CMP ####[address] Ovalocytes Slight Normal [facility] Comment on above: Performed By: #### M G, PHOS, SCAN CBC, CMP ####[address] Platelet Estimate Normal Normal Normal [facility] Comment on above: Performed By: #### M G, PHOS, SCAN CBC, CMP ####[address] Platelet mean volume (Bld) [Entitic vol] 8.2 fL Normal 6.6-10.1 [facility] Comment on above: Performed By: #### M G, PHOS, SCAN CBC, CMP ####[address] Platelet Morphology Normal Normal Normal [facility] Comment on above: Result Comment: PERF ORMED BY:[address] [place], [place] [phone] MEDICAL BRISA LOBATO M.D. Performed By: #### M G, PHOS, SCAN CBC, CMP ####[address] Platelets (Bld) [#/Vol] 394 10*3/uL Normal 150-450 [facility] Comment on above: Performed By: #### M G, PHOS, SCAN CBC, CMP ####[address] Polychromasia Slight Normal [facility] Comment on above: Performed By: #### M G, PHOS, SCAN CBC, CMP ####[place] [address] RBC (Bld) [#/Vol] 3.41 10*6/uL Low 3.90-5.60 [facility] Comment on above: Performed By: #### M G, PHOS, SCAN CBC, CMP ####[place] [address] WBC (Bld) [#/Vol] 5.5 10*3/uL Normal 4.1-10.5 [facility] Comment on above: Performed By: #### M G, PHOS, SCAN CBC, CMP ####[place] [address] Serum or plasma iron binding capacity measurement (mass/volume)Ordered By: João Powell on 03-04-2024 Iron binding capacity [Mass/Vol] Iron binding capacity [Mass/volume] in Serum or Plasma 255-450 [facility] Serum or plasma iron saturat ion measurement (mass fraction)Ordered By: João Powell on 03-04-2024 Iron saturation [Mass fraction] Iron saturation [Mass Fraction] in Serum or Plasma Low 20-50 [facility] Thyroid Stimulating Hormoneo n 03-04-2024 Thyroid Stimulating Hormone Normal 0.45-5.33 [facility] Comment on above: Order Comment: Comme nt add Result Comment: Spec imen hemolyzed, redraw requestedPERFORMED BY:[address] [place], [place] [phone] MEDICAL DIRECTORCLIFFORD LOBATO M.D. Performed By: #### T SH3, LILA, FE and TIBC, [id number] ####[place] [phone] [facility] Thyrotropin [Units/volume] i n Serum or PlasmaOrdered By: João Powell on 03-04-2024 TSH Qn 2.90 m[IU]/L Normal 0.45-5.33 [facility] Comment on above: Result Comment: PERF ORMED BY:[place] [address] [address] [place], [place] [phone] MEDICAL DIRECTORCLIFFORD LOBATO M.D. Performed By: #### T SH3, REDRAW B12, REDRAW LILA, REDRAW FOLATE ####[place] [address] [place] [address] [facility] TSH Qn Thyrotropin [Units/volume] in Serum or Plasma 0.45-5.33 [facility] Transferrin [Mass/volume] in Serum or PlasmaOrdered By: João Powell on 03-04-2024 Transferrin [Mass/Vol] 288 mg/dL Normal 203-[address] [facility] Comment on above: Order Comment: Comme nt add Performed By: #### T SH3, LILA, FE and TIBC, [id number] ####[address] [address] [facility] Transferrin [Mass/Vol] Transferrin [Mass /volume] in Serum or Plasma 203-362 [facility] Type and Screenon 03-04-2024 ABO and Rh group Nom (Bld) Blood group O Rh(D) positive Normal [facility] Comment on above: Order Comment: Numbe r of units to transfuse now? 1 Result Comment: PERF ORMED BY:[place] [address] [place] [place], [place] [phone] MEDICAL DIRECTORCLIFFORD LOBATO M.D. Vit. B12/Folate Profileon Folate Normal >5.9 [facility] Comment on above: Order Comment: Comme nt add Result Comment: Spec imen hemolyzed, redraw requested Folate reference range: >5.9 ng/ml The WHO technical consultation on folate and vitamin b12 deficiencies has determined that folate concentrations less than 4 ng/ml are considered deficient.PERFORMED BY:[place] [address] [address] [place], [place] [phone] MEDICAL DIRECTORCLIFFORD LOBATO M.D. Performed By: #### T SH3, LILA, FE and TIBC, [id number] ####[address] [address] [facility] Vitamin B12 Normal 180-914 [facility] Comment on above: Order Comment: Comme nt add Result Comment: Spec imen hemolyzed, redraw requested Performed By: #### T SH3, LILA, FE and TIBC, [id number] ####[place] [address] Vitamin B12 ser/plasOrdered By: João Powell on 03-04-2024 Cobalamin (Vitamin B12) [Mass/Vol] 170 pg/mL Low 180-914 [facility] Comment on above: Performed By: #### T SH3, REDRAW B12, REDRAW LILA, REDRAW FOLATE ####[place] [address] Cobalamin (Vitamin B12) [Mass/Vol] Vitamin B12 ser/plas Low 180-914 [facility] XR knee RT 2Von 03-04-2024 XR knee RT 2V Normal [facility] Anisocytosis [Presence] in B lood by Light microscopyOrdered By: Kait Dan on 03-03-2024 Anisocytosis Ql (Bld) Marked Normal [facility] Comment on above: Performed By: #### H S TROP, SCAN CBC, BNP, BMP ####[address] Appearance of UrineOrdered B y: Kait Dan on 03-03-2024 Appearance (U) Urine appearance Clear [facility] Automated basophil %Ordered By: Kait Dan on 03-03-2024 Basophils/100 WBC (Bld) 1.7 % Normal . [facility] Comment on above: Performed By: #### H S TROP, SCAN CBC, BNP, BMP ####[address] Automated basophil countOrde red By: Kait Dan on 03-03-2024 Basophils (Bld) [#/Vol] 0.1 10*3/uL Normal 0.0-0.2 [facility] Comment on above: Performed By: #### H S TROP, SCAN CBC, BNP, BMP ####[address] [place] [address] [place] Automated blood monocyte cou ntOrdered By: Kait Dan on 03-03-2024 Monocytes (Bld) [#/Vol] 0.8 10*3/uL Normal 0.0-0.8 [facility] Comment on above: Performed By: #### H S TROP, SCAN CBC, BNP, BMP ####[address] Automated eosinophil %Ordere d By: Kait Dan on 03-03-2024 Eosinophils/100 WBC (Bld) 3.2 % Normal . [facility] Comment on above: Performed By: #### H S TROP, SCAN CBC, BNP, BMP ####[address] Automated eosinophil countOr dered By: Kait Dan on 03-03-2024 Eosinophils (Bld) [#/Vol] 0.2 10*3/uL Normal 0.0-0.45 [facility] Comment on above: Performed By: #### H S TROP, SCAN CBC, BNP, BMP ####[address] Automated monocyte %Ordered By: Kait Dan on 03-03-2024 Monocytes/100 WBC (Bld) 11.3 % Normal . [facility] Comment on above: Performed By: #### H S TROP, SCAN CBC, BNP, BMP ####[address] Automated neutrophil %Ordere d By: Kait Dan on 03-03-2024 Neutrophils/100 WBC (Bld) 65.6 % Normal . [facility] Comment on above: Performed By: #### H S TROP, SCAN CBC, BNP, BMP ####[address] BNP ser/plasOrdered By: Delfina Dan on 03-03-2024 Natriuretic peptide B (Bld) [Mass/Vol] 23.0 pg/mL Normal 5-100 [facility] Comment on above: Result Comment: PERF ORMED BY:[address], [place] [phone] MEDICAL DIRECTORCLIFFORD LOBATO M.D. Performed By: #### H S TROP, SCAN CBC, BNP, BMP ####[address] [place] [address] [facility] Basic Metabolic Panelon 02-04 Creatinine Clr Calc Pharmacy 44.86 Normal [facility] Comment on above: Result Comment: PERF ORMED BY:[address] [place], [place] [phone] MEDICAL DIRECTORCLIFFORD LOBATO M.D. Performed By: #### H S TROP, SCAN CBC, BNP, BMP ####[place] [id number] [facility] GFR/1.73 sq M.predicted MDRD (S/P/Bld) [Vol rate/Area] 38.669 mL/min/{1.73_m2} Normal [facility] Comment on above: Performed By: #### H S TROP, SCAN CBC, BNP, BMP ####[address] [address] [facility] Bilirubin Test strip Ql (U)O rdered By: Kait Dan on 03-03-2024 Bilirubin Ql (U) Negative Negative [facility] Bilirubin Ql (U) Bilirubin.total [Presence] in Urine by Test strip Negative [facility] COVID CepheidOrdered By: Jeremi Dan on 03-03-2024 SARS-CoV-2 (COVID-19) Ab IA Ql Negative Negative [facility] Comment on above: This is a duplicate Cepheid Xpert Xpress CoV-2/Flu/RSV Plus RNA by RT-PCR result to be used for statistical tracking purpose only. SARS-CoV-2 (COVID-19) RNA NELLY+probe Ql (Unsp spec) Normal [facility] Comment on above: Performed By: #### C EPHEID NEG, UA, COVID19 FLU RSV ####[address] [place] [id number] [facility] SARS-CoV-2 (COVID-19) RNA NELLY+probe Ql (Unsp spec) Negative Normal Negative [facility] Comment on above: Result Comment: This is a duplicate Cepheid Xpert Xpress CoV-2/Flu/RSV Plus RNA by RT-PCR result to be used for statistical tracking purpose only.PERFORMED BY:[facility] [place] [address] [place], [place] [phone] MEDICAL DIRECTORCLIFFORD LOBATO M.D. Performed By: #### C EPHEID NEG, UA, COVID19 FLU RSV ####[facility] [id number] [place] [address] [facility] COVID Cepheid NegativeOrdere d By: Kait Dan on 03-03-2024 SARS-CoV-2 (COVID-19) Ab IA Ql COVID Cepheid Negative [facility] Comment on above: This is a duplicate Cepheid Xpert Xpress CoV-2/Flu/RSV Plus RNA by RT-PCR result to be used for statistical tracking purpose only. CT abdomen pelvis w conon CT abdomen pelvis w con Normal [facility] CT head/brain wo conon 03-03 CT head/brain wo con Normal [facility] Calcium [Mass/volume] in Ser um or PlasmaOrdered By: Kait Dan on 03-03-2024 Calcium [Mass/Vol] 8.6 mg/dL Normal 8.6-10.3 [facility] Comment on above: Performed By: #### H S TROP, SCAN CBC, BNP, BMP ####[address] [place] [id number] [facility] Capillary blood glucose ashley urement by glucometer (mass/volume)Ordered By: Kait Dan on 03-03-2024 Glucose [Mass/Vol] 167 mg/dL Normal [facility] Comment on above: Random Glucose Refer ence Range is dependent on time and content of last meal. Glucose of more than 200 mg/dL in a nonstressed, ambulatory subject supports the diagnosis of Diabetes Mellitus. Result Comment: [place] om Glucose Reference Range is dependent on time and content of last meal. Glucose of more than 200 mg/dL in a nonstressed, ambulatory subject supports the diagnosis of Diabetes Mellitus.PERFORMED BY:[facility] [place], [place] [phone] MEDICAL DIRECTORCLIFFORD LOBATO M.D. Performed By: #### G NELI ####Point of Care testing, Carbon dioxide, total [Moles /volume] in Serum or PlasmaOrdered By: Kait Dan on 03-03-2024 CO2 [Moles/Vol] 24.3 mmol/L Normal 21.0-31.0 [facility] Comment on above: Performed By: #### H S TROP, SCAN CBC, BNP, BMP ####[address] [place] [id number] [facility] Chloride [Moles/volume] in S ilia or PlasmaOrdered By: Kait Dan on 03-03-2024 Chloride [Moles/Vol] 103 mmol/L Normal 98-107 [facility] Comment on above: Performed By: #### H S TROP, SCAN CBC, BNP, BMP ####[address] [place] [phone] [facility] Color Auto (U)Ordered By: Martha Dan on 03-03-2024 Color (U) Color of Urine by Auto Yellow [facility] Color of Urine by AutoOrdere d By: Kait Dan on 03-03-2024 Color (U) Colorless Normal Yellow [facility] Comment on above: Order Comment: Name Collection Type:: Clean-Voided Midstream Performed By: #### C EPHEID NEG, UA, COVID19 FLU RSV ####[address] [place] [phone] [facility] Creatinine [Mass/volume] in Serum or PlasmaOrdered By: Kait Dan on 03-03-2024 Creatinine [Mass/Vol] 1.97 mg/dL High 0.70-1.30 [facility] Comment on above: Performed By: #### H S TROP, SCAN CBC, BNP, BMP ####[facility] [id number] [place] [id number] [facility] ECG 12 lead ECGon 03-03-2024 ECG 12 lead ECG Normal [facility] Erythrocyte distribution wid th [Ratio] by Automated countOrdered By: Kait Dan on 03-03-2024 Erythrocyte distribution width (RBC) [Ratio] 20.9 % High 12.0-14.8 [facility] Comment on above: Performed By: #### H S TROP, SCAN CBC, BNP, BMP ####[facility] [address] [place] [address] [facility] Erythrocytes [#/volume] in B lood by Automated countOrdered By: Kait Dan on 03-03-2024 RBC (Bld) [#/Vol] 3.58 10*6/uL Low 3.90-5.60 [facility] Comment on above: Performed By: #### H S TROP, SCAN CBC, BNP, BMP ####[facility] [id number] [place] [address] [facility] Glucose Poct Glucometerson 0 03-03-2024 Commemt1 Glu2: Cleaned Meter Normal [facility] Comment on above: Result Comment: PERF ORMED BY:[facility] [place], [place] [phone] MEDICAL DIRECTORCLIFFORD LOBATO M.D. Performed By: #### G LULS ####Point of Care testing, Glucose [Mass/Vol] 204 mg/dL Normal [facility] Comment on above: Result Comment: [place] Glucose Reference Range is dependent on time and content of last meal. Glucose of more than 200 mg/dL in a nonstressed, ambulatory subject supports the diagnosis of Diabetes Mellitus. Performed By: #### G LULS ####Point of Care testing, Glucose [Mass/volume] in Ser um or PlasmaOrdered By: Kait Dan on 03-03-2024 Glucose [Mass/Vol] 142 mg/dL High 70-100 [facility] Comment on above: ADA recommended refe rence rangeRandom Glucose Reference Range is dependent on time and content of last meal. Glucose of more than 200 mg/dL in a nonstressed, ambulatory subject supports the diagnosis of Diabetes Mellitus. Result Comment: [place] Glucose Reference Range is dependent on time and content of last meal. Glucose of more than 200 mg/dL in a nonstressed, ambulatory subject supports the diagnosis of Diabetes Mellitus. ADA recommended reference range Performed By: #### H S TROP, SCAN CBC, BNP, BMP ####[facility] [address] [place] [id number] [facility] Glucose [Mass/volume] in Uri ne by Test stripOrdered By: Kait Dan on 03-03-2024 Glucose Test strip (U) [Mass/Vol] 500 mg/dL High Normal [facility] Glucose Test strip (U) [Mass/Vol] Glucose [Mass/volume] in Urine by Test strip High Normal [facility] Hematocrit [Volume Fraction] of Blood by Automated countOrdered By: Kait Dan on 03-03-2024 Hematocrit (Bld) [Volume fraction] 24.7 % Low 38.8-50.0 [facility] Comment on above: Performed By: #### H S TROP, SCAN CBC, BNP, BMP ####[address] [place] [phone] [facility] Hemoglobin Test strip Ql (U) Ordered By: Kait Dan on 03-03-2024 Hemoglobin Ql (U) Negative Negative [facility] Hemoglobin Ql (U) Hemoglobin [Presence ] in Urine by Test strip Negative [facility] Hemoglobin [Mass/volume] in BloodOrdered By: Kait Dan on 03-03-2024 Hemoglobin (Bld) [Mass/Vol] 7.8 g/dL Low 13.0-17.0 [facility] Comment on above: Performed By: #### H S TROP, SCAN CBC, BNP, BMP ####[place] [id number] [facility] Hypochromia LM Ql (Bld)Order ed By: Kait Dan on 03-03-2024 Hypochromia Ql (Bld) Moderate [facility] Ketones Test strip Ql (U)Ord ered By: Kait Dan on 03-03-2024 Ketones Ql (U) Ketones [Presence] i n Urine by Test strip Negative [facility] Ketones [Presence] in Urine by Test stripOrdered By: Kait Dan on 03-03-2024 Ketones Ql (U) Negative Normal Negative [facility] Comment on above: Order Comment: Name Collection Type:: Clean-Voided Midstream Performed By: #### C EPHEID NEG, UA, COVID19 FLU RSV ####[address] Leukocyte esterase [Presence ] in Urine by Test stripOrdered By: Kait Dan on 03-03-2024 Leukocyte esterase Test strip Ql (U) Negative Normal Negative [facility] Comment on above: Order Comment: Name Collection Type:: Clean-Voided Midstream Performed By: #### C EPHEID NEG, UA, COVID19 FLU RSV ####[place] [id number] [facility] Leukocyte esterase Test strip Ql (U) Leukocyte esterase [Presence] in Urine by Test strip Negative [facility] Leukocytes [#/volume] correc jorge for nucleated erythrocytes in Blood by Automated counOrdered By: Kait Dan on 03-03-2024 WBC corrected for nucl RBC Auto (Bld) [#/Vol] 7.2 10*3/uL 4.1-10.5 [facility] Leukocytes [#/volume] in Blo od by Automated countOrdered By: Kait Dan on 03-03-2024 WBC (Bld) [#/Vol] 7.2 10*3/uL Normal 4.1-10.5 [facility] Comment on above: Performed By: #### H S TROP, SCAN CBC, BNP, BMP ####[address] Lymphocytes [#/volume] in Bl ood by Automated countOrdered By: Kait Dan on 03-03-2024 Lymphocytes (Bld) [#/Vol] 1.3 10*3/uL Normal 1.00-4.8 [facility] Comment on above: Performed By: #### H S TROP, SCAN CBC, BNP, BMP ####[place] [address] [place] Lymphocytes/100 leukocytes i n Blood by Automated countOrdered By: Kait Dan on 03-03-2024 Lymphocytes/100 WBC (Bld) 18.2 % Normal . [facility] Comment on above: Performed By: #### H S TROP, SCAN CBC, BNP, BMP ####[facility] [id number] MCH [Entitic mass] by Automa jorge countOrdered By: Kait Dan on 03-03-2024 MCH (RBC) [Entitic mass] 21.8 pg Low 27.5-35.2 [facility] Comment on above: Performed By: #### H S TROP, SCAN CBC, BNP, BMP ####[address] MCHC Auto (RBC) [Mass/Vol]Or dered By: Kait Dan on 03-03-2024 MCHC (RBC) [Mass/Vol] 31.6 g/dL Low 32.5-35.6 [facility] MCV [Entitic volume] by Auto mated countOrdered By: Kait Dan on 03-03-2024 MCV (RBC) [Entitic vol] 69.0 fL Low 83.5-101 [facility] Comment on above: Performed By: #### H S TROP, SCAN CBC, BNP, BMP ####[address] Microcytes LM Ql (Bld)Ordere d By: Kait Dan on 03-03-2024 Microcytes Ql (Bld) Marked [facility] Monocyte distribution width [Entitic volume] in Blood by AutomatedOrdered By: Kait Dan on 03-03-2024 Monocyte distribution width Auto (Bld) [Entitic vol] 17.33 % 0.00-20.00 [facility] Monocyte distribution width Auto (Bld) [Entitic vol] Monocyte distribution width [Entitic volume] in Blood by Automated 0.00-20.00 [facility] Natriuretic peptide B [Mass/ Vol]Ordered By: Kait Dan on 03-03-2024 Natriuretic peptide B (Bld) [Mass/Vol] BNP ser/plas 5-100 [facility] Neutrophils [#/volume] in Bl ood by Automated countOrdered By: Kait Dan on 03-03-2024 Neutrophils (Bld) [#/Vol] 4.7 10*3/uL Normal 1.8-7.7 [facility] Comment on above: Performed By: #### H S TROP, SCAN CBC, BNP, BMP ####[facility] [id number] [place] [id number] [facility] Nitrite Test strip Ql (U)Ord ered By: Kait Dan on 03-03-2024 Nitrite Ql (U) Negative Negative [facility] Nitrite Ql (U) Nitrite [Presence] i n Urine by Test strip Negative [facility] No Panel InformationOrdered By: Kait Dan on 03-03-2024 Estimated GFR (CKD-EPI) 38.669 mL/Min [facility] Creatinine Clearance (Chem 44.86 [facility] Nucleated erythrocytes [Pres ence] in Blood by Automated countOrdered By: Kait Dan on 03-03-2024 Nucleated RBC Auto Ql (Bld) 0.2 /100{WBC} 0-0.5 [facility] Platelet adequacy [Presence] in Blood by Light microscopyOrdered By: Kait Dan on 03-03-2024 Platelets LM Ql (Bld) Increased Normal [facility] Platelet mean volume [Entiti c volume] in Blood by Automated countOrdered By: Kait Dan on 03-03-2024 Platelet mean volume (Bld) [Entitic vol] 7.8 fL Normal 6.6-10.1 [facility] Comment on above: Performed By: #### H S TROP, SCAN CBC, BNP, BMP ####[address] [place] [id number] [facility] Platelet morphology finding [Identifier] in BloodOrdered By: Kait Dan on 03-03-2024 Platelet morphology finding Nom (Bld) Normal Normal [facility] Platelets [#/volume] in Bloo d by Automated countOrdered By: Kait Dan on 03-03-2024 Platelets (Bld) [#/Vol] 452 10*3/uL High 150-450 [facility] Comment on above: Performed By: #### H S TROP, SCAN CBC, BNP, BMP ####[address] [place] [address] [facility] Polychromasia [Presence] in Blood by Light microscopyOrdered By: Kait Dan on 03-03-2024 Polychromasia LM Ql (Bld) Slight [facility] Potassium [Moles/volume] in Serum or PlasmaOrdered By: Kait Dan on 03-03-2024 Potassium [Moles/Vol] 3.9 mmol/L Normal 3.5-5.1 [facility] Comment on above: Performed By: #### H S TROP, SCAN CBC, BNP, BMP ####[address] [place] Protein Test strip (U) [Mass /Vol]Ordered By: Kait Dan on 03-03-2024 Protein (U) [Mass/Vol] Negative Negative [facility] Protein (U) [Mass/Vol] Protein [Mass/vol ume] in Urine by Test strip Negative [facility] RBC morphologyOrdered By: Martha Dan on 03-03-2024 RBC morphology finding Nom (Bld) N/A [facility] Respiratory specimen influen za A virus, influenza B virus, respiratory syncytical virOrdered By: Kait Dan on 03-03-2024 SARS-CoV-2 (COVID-19) RNA NELLY+probe Ql (Unsp spec) Respiratory specimen influenza A virus, influenza B virus, respiratory syncytical vir [facility] Scan and CBCon 03-03-2024 Hypochromasia Moderate Normal [facility] Comment on above: Performed By: #### H S TROP, SCAN CBC, BNP, BMP ####[place] [id number] [facility] Mean Corpuscular HGB Conc 31.6 g/dL Low 32.5-35.6 [facility] Comment on above: Performed By: #### H S TROP, SCAN CBC, BNP, BMP ####[address] [place] [id number] [facility] Microcytosis Marked Normal [facility] Comment on above: Performed By: #### H S TROP, SCAN CBC, BNP, BMP ####[address] [place] [address] [facility] Monocytes/100 WBC (Bld) 17.33 % Normal 0.00-20.00 [facility] Comment on above: Performed By: #### H S TROP, SCAN CBC, BNP, BMP ####[address] [address] [facility] NRBC% 0.2 /100{WBC} Normal 0-0.5 [facility] Comment on above: Performed By: #### H S TROP, SCAN CBC, BNP, BMP ####[address] [address] [facility] Platelet Estimate Increased Normal Normal [facility] Comment on above: Performed By: #### H S TROP, SCAN CBC, BNP, BMP ####[address] [place] [address] [facility] Platelet Morphology Normal Normal Normal [facility] Comment on above: Result Comment: PERF ORMED BY:[address] [place], [place] [phone] MEDICAL DIRECTORCLIFFORD LOBATO M.D. Performed By: #### H S TROP, SCAN CBC, BNP, BMP ####[address] [address] [facility] Polychromasia Slight Normal [facility] Comment on above: Performed By: #### H S TROP, SCAN CBC, BNP, BMP ####[place] [id number] [facility] Serum or plasma anion gap de terminationOrdered By: Kait Dan on 03-03-2024 Anion gap [Moles/Vol] 14.6 mmol/L Normal 6.0-15.[address] [facility] Comment on above: Performed By: #### H S TROP, SCAN CBC, BNP, BMP ####[address] [address] [facility] Sodium [Moles/volume] in Ser um or PlasmaOrdered By: Kait Dan on 03-03-2024 Sodium [Moles/Vol] 138 mmol/L Normal 136-145 [facility] Comment on above: Performed By: #### H S TROP, SCAN CBC, BNP, BMP ####[place] [id number] [facility] Specific gravity Test strip (U) [Rel density]Ordered By: Kait Dan on 03-03-2024 Specific gravity (U) [Rel density] 1.009 1.001-1.03 0 [facility] Specific gravity (U) [Rel density] Specific gravity of Urine by Test strip 1.001-1.03 0 [facility] Troponin I High Sensitivityo n 03-03-2024 Troponin I High Sensitivity 4.5 pg/mL Normal 0.0-20.0 [facility] Comment on above: Result Comment: PERF ORMED BY:[address] [place], [place] [phone] MEDICAL DIRECTORCLIFFORD LOBATO M.D. Performed By: #### H S TROP ####[address] [place] [address] [facility] Troponin I High Sensitivity 9.2 pg/mL Normal 0.0-20.0 [facility] Comment on above: Result Comment: PERF ORMED BY:[address] [place], [place] [phone] MEDICAL DIRECTORCLIFFORD LOBATO M.D. Performed By: #### H S TROP, SCAN CBC, BNP, BMP ####[address] [address] [facility] Troponin I.cardiac [Mass/vol ume] in Serum or Plasma by Detection limit <= 0.01 ng/Ordered By: Kait Dan on 03-03-2024 Troponin I.cardiac DL <= 0.01 ng/mL [Mass/Vol] 4.5 pg/mL 0.0-20.0 [facility] Troponin I.cardiac DL <= 0.01 ng/mL [Mass/Vol] Troponin I.cardiac [Mass/volume] in Serum or Plasma by Detection limit <= 0.01 ng/ 0.0-20.0 [facility] Urea nitrogen [Mass/volume] in Serum or PlasmaOrdered By: Kait Dan on 03-03-2024 Urea nitrogen [Mass/Vol] 46 mg/dL High 7-25 [facility] Comment on above: Performed By: #### H S TROP, SCAN CBC, BNP, BMP ####[address] [address] [facility] Urinalysison 03-03-2024 Bilirubin,Urine Negative Normal Negative [facility] Comment on above: Order Comment: Name Collection Type:: Clean-Voided Midstream Performed By: #### C EPHEID NEG, UA, COVID19 FLU RSV ####[place] [id number] [facility] Glucose Ql (U) 500 mg/dL High Normal [facility] Comment on above: Order Comment: Name Collection Type:: Clean-Voided Midstream Performed By: #### C EPHEID NEG, UA, COVID19 FLU RSV ####[address] [address] [facility] Nitrite,Urine Negative Normal Negative [facility] Comment on above: Order Comment: Name Collection Type:: Clean-Voided Midstream Performed By: #### C EPHEID NEG, UA, COVID19 FLU RSV ####[place] [id number] [facility] Occult Blood,Urine Negative Normal Negative [facility] Comment on above: Order Comment: Name Collection Type:: Clean-Voided Midstream Result Comment: PERF ORMED BY:[address] [place]Dar[place]Mary[place], [place] [phone] MEDICAL BRISA LOBATO M.D. Performed By: #### C EPHEID NEG, UA, COVID19 FLU RSV ####[address] [address] [facility] Protein,Urine Negative Normal Negative [facility] Comment on above: Order Comment: Name Collection Type:: Clean-Voided Midstream Performed By: #### C EPHEID NEG, UA, COVID19 FLU RSV ####[place] [id number] [facility] Specificy [place],Urine 1.009 Normal 1.001-1.03 0 [facility] Comment on above: Order Comment: Name Collection Type:: Clean-Voided Midstream Performed By: #### C EPHEID NEG, UA, COVID19 FLU RSV ####[place] [address] Urobilinogen,Urine Normal Normal Normal [facility] Comment on above: Order Comment: Name Collection Type:: Clean-Voided Midstream Performed By: #### C EPHEID NEG, UA, COVID19 FLU RSV ####[place] [address] Urine appearanceOrdered By: Kait Dan on 03-03-2024 Appearance (U) Clear Normal Clear [facility] Comment on above: Order Comment: Name Collection Type:: Clean-Voided Midstream Performed By: #### C EPHEID NEG, UA, COVID19 FLU RSV ####[place] [address] Urobilinogen Test strip (U) [Mass/Vol]Ordered By: Kait Dan on 03-03-2024 Urobilinogen (U) [Mass/Vol] Normal mg/dL Normal [facility] Urobilinogen (U) [Mass/Vol] Urobilinogen [Mass/volume] in Urine by Test strip Normal [facility] XR chest 2V*on 03-03-2024 XR chest 2V* Normal [facility] pH Test strip (U)Ordered By: Kait Dan on 03-03-2024 pH (U) pH of Urine by Test strip 5.0-9.0 [facility] pH of Urine by Test stripOrd ered By: Kait Dan on 03-03-2024 pH (U) 5.0 [pH] Normal 5.0-9.0 [facility] Comment on above: Order Comment: Name Collection Type:: Clean-Voided Midstream Performed By: #### C EPHEID NEG, UA, COVID19 FLU RSV ####[place] [address] Coding Queryon 02-22-2024 Coding Query Coding [...] Ben Corrigan III, DO To: Joe RN, Eliz Daniel; Sent: 02/22/2024 16:07:30 EDT Subject: RE: Coding Query Caller Name: MYRA PICKARD SR; Caller Number: H Normal [facility] General Message Officeon General Message Office General Message O ffice --- --- --- --- --- --- --- --- --- From: [place]ai DirectInkhadra To: MYRA PICKARD SR Sent: 02/22/24 02:30:41 AM EDT Subject: Discharge Summary Ready to View A summary regarding your recent visit is available in the Documents section of your health record. 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 - Seborrheic keratosis. - No evidence of osteomyelitis. - Resection margin uninvolved by acute inflammation. (Electronic Signature) Yan. Caitie MD 02/22/2024 14:10 Clinical Information Pre-Op Diagnosis: Atherosclerosis of [place] arteries of extremities with gangrene, right leg. [...] pigmented lesion measuring 0.2 x 0.2 cm. Health Information Technician sections are submitted in a total of ten cassettes: 1-5: Skin and soft tissue ulcerated areas 6-7: Artery 8: Bone near ulceration after decalcification 9-10: Bone from surgical margin after decalcification (DC) Gross of specimen was discussed with Dr. Dunne in Frozen Section Room at 1400. (DC) DC:[facility] Microscopic Description Microscopic examination performed unless gross only specified. Normal [facility] Comment on above: Performed By: #### 4 [id number] #### [facility] [address] [place] [address] [facility] Anion gap [Moles/Vol] 8 mmol/L Normal 6-16 [facility] Comment on above: Performed By: #### 2 [id number] #### [facility] [address] [place] [address] Calcium [Mass/Vol] 8.6 mg/dL Low 8.9-11.1 [facility] Comment on above: Performed By: #### 2 [id number] #### [facility] [address] [place] [address] Chloride [Moles/Vol] 100 mmol/L Low 101-111 [facility] Comment on above: Performed By: #### 2 [id number] #### [facility] [address] [place] [address] CO2 [Moles/Vol] 30 mmol/L Normal 21-31 [facility] Comment on above: Performed By: #### 2 [id number] #### [facility] [address] [place] [address] Creatinine [Mass/Vol] 1.8 mg/dL High 0.5-1.3 [facility] Comment on above: Performed By: #### 2 [id number] #### [facility] [address] [place] [address] Glucose [Mass/Vol] 169 mg/dL Normal 55-199 [facility] Comment on above: Performed By: #### 2 [id number] #### [facility] [address] [place] [address] Potassium [Moles/Vol] 3.7 mmol/L Normal 3.5-5.3 [facility] Comment on above: Performed By: #### 2 [id number] #### [facility] [address] [place] [address] Sodium [Moles/Vol] 134 mmol/L Low 135-145 [facility] Comment on above: Performed By: #### 2 [id number] #### [facility] [address] [place] [address] Urea nitrogen [Mass/Vol] 26 mg/dL High 5-21 [facility] Comment on above: Performed By: #### 2 [id number] #### [facility] [address] [place] [address] Urea nitrogen/Creatinine [Mass ratio] 14 No Units Normal 10-20 [facility] Comment on above: Performed By: #### 2 [id number] #### [facility] [address] [place] [address] CBC w/ Auto Diffon 4 Basophils/100 WBC (Bld) 0.7 % Normal 0.0-2.0 [facility] Comment on above: Performed By: #### 2 [id number] #### [facility] [address] [place] [address] Basophils/Leukocytes Auto (Bld) [Pure # fraction] 0.1 E9/L Normal 0.0-0.2 [facility] Comment on above: Performed By: #### 2 655401 #### [facility] [address] [place] [address] Eosinophils (Bld) [#/Vol] 0.4 E9/L Normal 0.0-0.5 [facility] Comment on above: Performed By: #### 2 268302 #### [facility] [address] [place] [address] Eosinophils/100 WBC (Bld) 3.6 % Normal 0.0-8.0 [facility] Comment on above: Performed By: #### 2 299879 #### [facility] [address] [place] [address] Erythrocyte distribution width (RBC) [Ratio] 21.4 % High 10.9-14.2 [facility] Comment on above: Performed By: #### 2 709723 #### [facility] [address] [place] [address] Hematocrit (Bld) [Volume fraction] 25.6 % Low 37.7-49.0 [facility] Comment on above: Performed By: #### 2 878535 #### [facility] [address] [place] [address] Hemoglobin (Bld) [Mass/Vol] 8.1 g/dL Low 13.5-17.5 [facility] Comment on above: Performed By: #### 2 927571 #### [facility] [address] [place] [address] Hypochromia Auto Ql (Bld) PRESENT Invalid Interpretation Code [facility] Comment on above: Performed By: #### 2 [id number] #### [facility] [address] [place] [address] Lymphocytes (Bld) [#/Vol] 1.5 E9/L Normal 1.0-4.0 [facility] Comment on above: Performed By: #### 2 731019 #### [facility] [address] [place] [address] Lymphocytes/100 WBC (Bld) 12.4 % Low 14.0-50.0 [facility] Comment on above: Performed By: #### 2 334305 #### [facility] [address] [place] [address] MCH (RBC) [Entitic mass] 22.3 pg Low 27.0-34.0 [facility] Comment on above: Performed By: #### 2 [id number] #### [facility] [address] [place] [address] MCHC (RBC) [Mass/Vol] 31.5 g/dL Normal 31.4-36.0 [facility] Comment on above: Performed By: #### 2 970837 #### [facility] [address] [place] [address] MCV (RBC) [Entitic vol] 70.7 fL Low 80.0-100.0 [facility] Comment on above: Performed By: #### 2 341456 #### [facility] [address] [place] [address] Microcytes Ql (Bld) PRESENT Invalid Interpretation Code [facility] Comment on above: Performed By: #### 2 770578 #### [facility] [address] [place] [address] Monocytes (Bld) [#/Vol] 1.1 E9/L High 0.2-1.0 [facility] Comment on above: Performed By: #### 2 578480 #### [facility] [address] [place] [address] Neutrophils (Bld) [#/Vol] 9.3 E9/L High 2.0-7.5 [facility] Comment on above: Performed By: #### 2 353829 #### [facility] [address] [place] [address] Neutrophils/100 WBC (Bld) 74.6 % Normal 36.0-75.0 [facility] Comment on above: Performed By: #### 2 070592 #### [facility] [address] [place] [address] Platelet mean volume (Bld) [Entitic vol] 8.6 fL Normal 6.4-10.8 [facility] Comment on above: Performed By: #### 2 555424 #### [facility] [address] [place] [address] Platelets (Bld) [#/Vol] 481.0 E9/L Normal 150.0-500. 0 [facility] Comment on above: Performed By: #### 2 643691 #### [facility] [address] [place] [address] Platelets Large LM Ql (Bld) PRESENT Invalid Interpretation Code [facility] Comment on above: Performed By: #### 2 [id number] #### [facility] [address] [place] [address] RBC (Bld) [#/Vol] 3.6 E12/L Low 4.3-5.9 [facility] Comment on above: Performed By: #### 2 657136 #### [facility] [address] [place] [address] RBC size Nom (Bld) NORMAL Invalid Interpretation Code [facility] Comment on above: Performed By: #### 2 841933 #### [facility] [address] [place] [address] WBC corrected for nucl RBC Auto (Bld) [#/Vol] 12.5 E9/L High 4.0-11.0 [facility] Comment on above: Performed By: #### 2 597446 #### [facility] [address] [place] [address] CHEMISTRYOrdered By: Lab ROP User on 02-21-2024 Glucose [Mass/Vol] 227 mg/dL High 55 - 99 mg/dL [facility] Comment on above: Result Comment: Noti rivas RN/MD POC Device SN [id number] 1 Invalid Interpretation Code [facility] POC Subsection POC User ID [id number] 1 Invalid Interpretation Code [facility] POC Subsection POC Username CLARITA RAMSEY Invalid Interpretation Code [facility] Subsection Glucose [Mass/Vol] 177 mg/dL High 55 - 99 mg/dL [facility] Subsection Comment on above: Result Comment: Noti rivas RN/MD POC Device SN [id number] 1 Invalid Interpretation Code [facility] POC Subsection POC User ID [id number] 1 Invalid Interpretation Code [facility] P[facility] Subsection POC Username BRAULIO ABRAHANTERESOKATHERIN Invalid Interpretation Code [facility] POC Subsection Glucose [Mass/Vol] 158 mg/dL High 55 - 99 mg/dL [facility] POC Subsection POC Device SN [id number] 1 Invalid Interpretation Code [facility] POC Subsection POC User ID [id number] 1 Invalid Interpretation Code [facility] POC Subsection POC Username FADI LIND Invalid Interpretation Code [facility] POC Subsection CHEMISTRYOrdered By: SYSTEM SYSTEM on [...] 02-03 Glucose [Mass/Vol] 227 mg/dL High 55-99 [facility] Comment on above: Result Comment: Deon hathaway RN/ Performed By: #### 2 [id number] #### [facility] [address] [place] [address] Glucose [Mass/Vol] 177 mg/dL High 55-99 [facility] Comment on above: Result Comment: Deon hathaway RN/ Performed By: #### 2 [id number] #### [facility] [address] [place] [address] Glucose [Mass/Vol] 158 mg/dL High 55-99 [facility] Comment on above: Performed By: #### 2 [id number] #### [facility] [address] [place] [address] Discharge Note-Nursingon Discharge Note-Nursing Discharge Note-Nu rsing MATTEO CHRISTIAN, MYRA Daniel :1965 Visit Date:02/12/2024 Inpatient Discharge Instructions Your Care Team Admitting Physician - Simon HERRERA, Mike Weathers Consulting Physician - Mike Montes MD Referring Physician - Simon HERRERA, Mike Weathers Reason for Your Visit I70.261 Your Diagnosis [...] TERESA LYNCH DO, FAM When: Where: [address] [place] [address]- [facility] Within 2 weeks Comments: Call for followup appointment Where: [address] [place] [address]- Medications What How Much When Instructions Next [...] 0.5 Tablets (more content not included)... Normal [facility] HEMATOLOGYOrdered By: SYSTEM SYSTEM on [...] 02-21-2024 Inpatient Clinical Summary Inpatient Clinical Summary [place] [address] Clinical Summary Person Information: Name: MYRA PICKARD SR Age: 58 Years : 1965 Sex: Male PCP: TERESA LYNCH DO Marital Status: Race: White Ethnicity: Non- or Language: Afghan Visit Id: Visit Reason: I70.261 Speciality: Acuity: Enc Type: Inpatient Med Service: Medical Arrival: 02/12/2024 11:13:26 Discharge: Dispo Type: Address: [address] [place] [address] [address] [facility] [id number] Provider Notes: Diagnosis: 1:Hx of right BKA; [...] Attending Physician: Raulito Gilliland DO Consulting Physician: Mike Montes MD Referring Physician: Mike Montes MD Follow up: With: Address: When: TERESA LYNCH DO, [address] [address] With: Address: When: Mike Montes MD [address] [place] [address] Within 2 weeks Comments: Call for followup appointment Patient Education Information: Living With an Amputation Normal [facility] Inpatient Patient Summaryon 02-21-2024 Inpatient Patient Summary Inpatient Patient Summary [address] [address] Patient Discharge Instructions PERSON INFORMATION [...] up: With: Address: When: TERESA LYNCH DO, [address] [address] With: Address: When: Mike Montes MD [address] [place] [address] Within 2 weeks Comments: Call for followup [...] Tablets By M (more content not included)... [facility] Interdisciplinary Note - Jorge e Manageron 02-21-2024 Interdisciplinary Note - Tool And Die Repair Interdisciplinary Note - Tool And Die Repair Precert for [place] has been obtained. Patient informed and his was also contacted. Both remain in agreement with the discharge plan. Patient's will arrive to [facility] by 1700 this evening and will transport patient to [place] once he has finished his dinner. Hospitalist, RN, and CRM aware. [facility] Comment on above: Result Comment: Elec tronically Signed By: Evens SÁNCHEZ, Fely Martin\.br\Date and Time Signed: 02/21/24 18:08 EDT Interdisciplinary Note - Soc ial Workeron 02-21-2024 Interdisciplinary Note - Child Welfare Director Interdisciplinary Note - Child Welfare Director Precert for [place] has been obtained. Patient informed and his was also contacted. Both remain in agreement with the discharge plan. Patient's will arrive to [facility] by 1700 this evening and will transport patient to [place] once he has finished his dinner. Hospitalist, RN, and CRM aware. [facility] Interdisciplinary Note - Child Welfare Director Interdisciplinary Note - Child Welfare Director Precert for [place] has been obtained. Patient informed and his was also contacted. Both remain in agreement with the discharge plan. Patient's will arrive to [facility] by 1700 this evening and will transport patient to [place] once he has finished his dinner. Hospitalist, RN, and CRM aware. [facility] eGFRon 02-21-2024 eGFR 43 mL/min/1.73 m2 Low >=59 [facility] Comment on above: Order Comment: Order added by Discern Expert. Performed By: #### 1 [id number] #### [facility] [address] [place] [place] [address] BMPon 02-20-2024 Anion gap [Moles/Vol] 15 mmol/L Normal 6-16 [facility] Comment on above: Performed By: #### 2 437311 #### [facility] [address] [place] [address] Calcium [Mass/Vol] 9.4 mg/dL Normal 8.9-11.1 [facility] Comment on above: Performed By: #### 2 228415 #### [facility] [address] [place] [address] Chloride [Moles/Vol] 97 mmol/L Low 101-111 [facility] Comment on above: Performed By: #### 2 654662 #### [facility] [address] [place] [address] CO2 [Moles/Vol] 28 mmol/L Normal 21-31 [facility] Comment on above: Performed By: #### 2 724058 #### [facility] [address] [place] [address] Creatinine [Mass/Vol] 1.8 mg/dL High 0.5-1.3 [facility] Comment on above: Performed By: #### 2 593760 #### [facility] [address] [place] [address] Glucose [Mass/Vol] 259 mg/dL High 55-199 [facility] Comment on above: Performed By: #### 2 326661 #### [facility] [address] [place] [address] Potassium [Moles/Vol] 3.9 mmol/L Normal 3.5-5.3 [facility] Comment on above: Performed By: #### 2 812009 #### [facility] [address] [place] [address] Sodium [Moles/Vol] 136 mmol/L Normal 135-145 [facility] Comment on above: Performed By: #### 2 151763 #### [facility] [address] [place] [address] Urea nitrogen [Mass/Vol] 27 mg/dL High 5-21 [facility] Comment on above: Performed By: #### 2 370320 #### [facility] [address] [place] [address] Urea nitrogen/Creatinine [Mass ratio] 15 No Units Normal 10-20 [facility] Comment on above: Performed By: #### 2 304360 #### [facility] [address] [place] [address] CBC w/ Auto Diffon 4 Basophils/100 WBC (Bld) 0.7 % Normal 0.0-2.0 [facility] Comment on above: Performed By: #### 2 [id number] #### [facility] [address] [place] [address] Basophils/Leukocytes Auto (Bld) [Pure # fraction] 0.1 E9/L Normal 0.0-0.2 [facility] Comment on above: Performed By: #### 2 852645 #### [facility] [address] [place] [address] Eosinophils (Bld) [#/Vol] 0.2 E9/L Normal 0.0-0.5 [facility] Comment on above: Performed By: #### 2 [id number] #### [facility] [address] [place] [address] Eosinophils/100 WBC (Bld) 1.6 % Normal 0.0-8.0 [facility] Comment on above: Performed By: #### 2 538014 #### [facility] [address] [place] [address] Erythrocyte distribution width (RBC) [Ratio] 21.6 % High 10.9-14.2 [facility] Comment on above: Performed By: #### 2 [id number] #### [facility] [address] [place] [address] Hematocrit (Bld) [Volume fraction] 27.5 % Low 37.7-49.0 [facility] Comment on above: Performed By: #### 2 358458 #### [facility] [address] [place] [address] Hemoglobin (Bld) [Mass/Vol] 8.9 g/dL Low 13.5-17.5 [facility] Comment on above: Performed By: #### 2 569405 #### [facility] [address] [place] [address] Hypochromia Auto Ql (Bld) PRESENT Invalid Interpretation Code [facility] Comment on above: Performed By: #### 2 808884 #### [facility] [address] [place] [address] Lymphocytes (Bld) [#/Vol] 1.3 E9/L Normal 1.0-4.0 [facility] Comment on above: Performed By: #### 2 943202 #### [facility] [address] [place] [address] Lymphocytes/100 WBC (Bld) 8.3 % Low 14.0-50.0 [facility] Comment on above: Performed By: #### 2 360251 #### [facility] [address] [place] [address] MCH (RBC) [Entitic mass] 22.9 pg Low 27.0-34.0 [facility] Comment on above: Performed By: #### 2 485891 #### [facility] [address] [place] [address] MCHC (RBC) [Mass/Vol] 32.2 g/dL Normal 31.4-36.0 [facility] Comment on above: Performed By: #### 2 [id number] #### [facility] [address] [place] [address] MCV (RBC) [Entitic vol] 70.9 fL Low 80.0-100.0 [facility] Comment on above: Performed By: #### 2 662389 #### [facility] [address] [place] [address] Microcytes Ql (Bld) PRESENT Invalid Interpretation Code [facility] Comment on above: Performed By: #### 2 [id number] #### [facility] [address] [place] [address] Monocytes (Bld) [#/Vol] 1.2 E9/L High 0.2-1.0 [facility] Comment on above: Performed By: #### 2 361553 #### [facility] [address] [place] [address] Neutrophils (Bld) [#/Vol] 12.7 E9/L High 2.0-7.5 [facility] Comment on above: Performed By: #### 2 988216 #### [facility] [address] [place] [address] Neutrophils/100 WBC (Bld) 81.5 % High 36.0-75.0 [facility] Comment on above: Performed By: #### 2 789394 #### [facility] [address] [place] [address] Platelet 521.0 E9/L High 150.0-500. 0 [facility] Comment on above: Performed By: #### 2 [id number] #### [facility] [address] [place] [address] Platelet mean volume (Bld) [Entitic vol] 8.6 fL Normal 6.4-10.8 [facility] Comment on above: Performed By: #### 2 831000 #### [facility] [address] [place] [address] RBC (Bld) [#/Vol] 3.9 E12/L Low 4.3-5.9 [facility] Comment on above: Performed By: #### 2 851515 #### [facility] [address] [place] [address] RBC size Nom (Bld) SEE MORPHOLOGY Invalid Interpretation Code [facility] Comment on above: Performed By: #### 2 [id number] #### [facility] [address] [place] [address] WBC corrected for nucl RBC Auto (Bld) [#/Vol] 15.6 E9/L High 4.0-11.0 [facility] Comment on above: Performed By: #### 2 [id number] #### [facility] [address] [place] [address] CHEMISTRYOrdered By: SYSTEM SYSTEM on 02-20-2024 Anion [...] 02-03 Glucose [Mass/Vol] 192 mg/dL High 55-99 [facility] Comment on above: Result Comment: Deon ETIENNE Performed By: #### 2 [id number] #### [facility] [address] [place] [address] Glucose [Mass/Vol] 180 mg/dL High 55-99 [facility] Comment on above: Result Comment: Deon ETIENNE Performed By: #### 2 [id number] #### [facility] [address] [place] [address] Glucose [Mass/Vol] 104 mg/dL High 55-99 [facility] Comment on above: Result Comment: Deon hathaway RN/ Performed By: #### 2 [id number] #### [facility] [address] [place] [address] Glucose [Mass/Vol] 165 mg/dL High 55-99 [facility] Comment on above: Result Comment: Deon hathaway RN/ Performed By: #### 2 [id number] #### [facility] [address] [place] [address] Glucose [Mass/Vol] 224 mg/dL High 55-99 [facility] Comment on above: Result Comment: Deon hathaway RN/ Performed By: #### 2 [id number] #### [facility] [address] [place] [address] Coding Queryon 02-20-2024 Coding Query Coding Query From: Eliz Diaz RN To: Ben Corrigan III, DO; Sent: 02/20/2024 14:33:58 EDT ! Subject: Coding Query Due Date/Time: 02/21/2024 14:33:00 EDT Caller Name: PICKARD MYRA CHRISTIAN; Caller Number: H Documentation in the [...] desired or expected. Thank you!eliz [phone] Normal [facility] HEMATOLOGYOrdered By: SYSTEM SYSTEM on [...] Jorge e Manageron 02-20-2024 Interdisciplinary Note - Tool And Die Repair Interdisciplinary Note - Tool And Die Repair This SW rounded with patient this morning. He is aware that precert is still pending for [place] and SW will update him as soon as determination is received. SW will also update his . Call placed to patient's this afternoon and a message was left letting her know that the precert remains pending at this time. Normal [facility] Comment on above: Result Comment: Elec tronically Signed By: Fely [email or web address].br\Date and Time Signed: 02/20/24 15:25 EDT Interdisciplinary Note - Tool And Die Repair Interdisciplinary Note - Tool And Die Repair This SW rounded with patient this morning. He is aware that precert is still pending for [place] and SW will update him as soon as determination is received. SW will also update his . Normal [facility] Comment on above: Result Comment: Elec tronically Signed By: Fely [email or web address].br\Date and Time Signed: 02/20/24 13:55 EDT eGFRon 02-20-2024 eGFR 43 mL/min/1.73 m2 Low >=59 [facility] Comment on above: Order Comment: Order added by Discern Expert. Performed By: #### 1 [id number] #### [facility] [address] [place] [address] BMPon 02-19-2024 Anion gap [Moles/Vol] 12 mmol/L Normal 6-16 [facility] Comment on above: Performed By: #### 2 [id number] #### [facility] [address] [place] [address] Calcium [Mass/Vol] 8.9 mg/dL Normal 8.9-11.1 [facility] Comment on above: Performed By: #### 2 [id number] #### [facility] [address] [place] [address] Chloride [Moles/Vol] 100 mmol/L Low 101-111 [facility] Comment on above: Performed By: #### 2 044491 #### [facility] [address] [place] [address] CO2 [Moles/Vol] 28 mmol/L Normal 21-31 [facility] Comment on above: Performed By: #### 2 730229 #### [facility] [address] [place] [address] Creatinine [Mass/Vol] 1.7 mg/dL High 0.5-1.3 [facility] Comment on above: Performed By: #### 2 174512 #### [facility] [address] [place] [address] Glucose [Mass/Vol] 235 mg/dL High 55-199 [facility] Comment on above: Performed By: #### 2 729471 #### [facility] [address] [place] [address] Potassium [Moles/Vol] 4.1 mmol/L Normal 3.5-5.3 [facility] Comment on above: Performed By: #### 2 786571 #### [facility] [address] [place] [address] Sodium [Moles/Vol] 136 mmol/L Normal 135-145 [facility] Comment on above: Performed By: #### 2 749949 #### [facility] [address] [place] [address] Urea nitrogen [Mass/Vol] 25 mg/dL High 5-21 [facility] Comment on above: Performed By: #### 2 [id number] #### [facility] [address] [place] [address] Urea nitrogen/Creatinine [Mass ratio] 15 No Units Normal 10-20 [facility] Comment on above: Performed By: #### 2 [id number] #### [facility] [address] [place] [address] CBC w/ Auto Diffon 4 Basophils/100 WBC (Bld) 1.6 % Normal 0.0-2.0 [facility] Comment on above: Performed By: #### 2 [id number] #### [facility] [address] [place] [address] Basophils/Leukocytes Auto (Bld) [Pure # fraction] 0.2 E9/L Normal 0.0-0.2 [facility] Comment on above: Performed By: #### 2 [id number] #### [facility] [address] [place] [address] Eosinophils (Bld) [#/Vol] 0.5 E9/L Normal 0.0-0.5 [facility] Comment on above: Performed By: #### 2 [id number] #### [facility] [address] [place] [address] Eosinophils/100 WBC (Bld) 5.1 % Normal 0.0-8.0 [facility] Comment on above: Performed By: #### 2 [id number] #### [facility] [address] [place] [address] Erythrocyte distribution width (RBC) [Ratio] 21.6 % High 10.9-14.2 [facility] Comment on above: Performed By: #### 2 [id number] #### [facility] [address] [place] [address] Hematocrit (Bld) [Volume fraction] 24.4 % Low 37.7-49.0 [facility] Comment on above: Performed By: #### 2 [id number] #### [facility] [address] [place] [address] Hemoglobin (Bld) [Mass/Vol] 7.9 g/dL Low 13.5-17.5 [facility] Comment on above: Performed By: #### 2 [id number] #### [facility] [address] [place] [address] Hypochromia Auto Ql (Bld) PRESENT Invalid Interpretation Code [facility] Comment on above: Performed By: #### 2 [id number] #### [facility] [address] [place] [address] Lymphocytes (Bld) [#/Vol] 1.9 E9/L Normal 1.0-4.0 [facility] Comment on above: Performed By: #### 2 [id number] #### [facility] [address] [place] [address] Lymphocytes/100 WBC (Bld) 18.4 % Normal 14.0-50.0 [facility] Comment on above: Performed By: #### 2 [id number] #### [facility] [address] [place] [address] MCH (RBC) [Entitic mass] 22.8 pg Low 27.0-34.0 [facility] Comment on above: Performed By: #### 2 [id number] #### [facility] [address] [place] [address] MCHC (RBC) [Mass/Vol] 32.3 g/dL Normal 31.4-36.0 [facility] Comment on above: Performed By: #### 2 [id number] #### [facility] [address] [place] [address] MCV (RBC) [Entitic vol] 70.4 fL Low 80.0-100.0 [facility] Comment on above: Performed By: #### 2 [id number] #### [facility] [address] [place] [address] Monocytes (Bld) [#/Vol] 1.0 E9/L Normal 0.2-1.0 [facility] Comment on above: Performed By: #### 2 [id number] #### [facility] [address] [place] [address] Neutrophils (Bld) [#/Vol] 6.7 E9/L Normal 2.0-7.5 [facility] Comment on above: Performed By: #### 2 [id number] #### [facility] [address] [place] [address] Neutrophils/100 WBC (Bld) 65.1 % Normal 36.0-75.0 [facility] Comment on above: Performed By: #### 2 488671 #### [facility] [address] [place] [address] Platelet 444.0 E9/L Normal 150.0-500. 0 [facility] Comment on above: Performed By: #### 2 [id number] #### [facility] [address] [place] [address] Platelet mean volume (Bld) [Entitic vol] 8.1 fL Normal 6.4-10.8 [facility] Comment on above: Performed By: #### 2 [id number] #### [facility] [address] [place] [address] RBC (Bld) [#/Vol] 3.5 E12/L Low 4.3-5.9 [facility] Comment on above: Performed By: #### 2 [id number] #### [facility] [address] [place] [address] RBC size Nom (Bld) SEE MORPHOLOGY Invalid Interpretation Code [facility] Comment on above: Performed By: #### 2 [id number] #### [facility] [address] [place] [address] WBC corrected for nucl RBC Auto (Bld) [#/Vol] 10.3 E9/L Normal 4.0-11.0 [facility] Comment on above: Performed By: #### 2 [id number] #### [facility] [address] [place] [address] CHEMISTRYOrdered By: SYSTEM SYSTEM on 02-19-2024 Anion [...] 02-03 Glucose [Mass/Vol] 250 mg/dL High 55-99 [facility] Comment on above: Result Comment: Deon ETIENNE Performed By: #### 2 [id number] #### [facility] [address] [place] [address] Glucose [Mass/Vol] 272 mg/dL High 55-99 [facility] Comment on above: Result Comment: Deon ETIENNE Performed By: #### 2 [id number] #### [facility] [address] [place] [address] Glucose [Mass/Vol] 277 mg/dL High 55-99 [facility] Comment on above: Result Comment: Deon ETIENNE Performed By: #### 2 [id number] #### [facility] [address] [place] [address] Glucose [Mass/Vol] 217 mg/dL High 55-99 [facility] Comment on above: Result Comment: Deon ETIENNE Performed By: #### 2 [id number] #### [facility] [address] [place] [address] HEMATOLOGYOrdered By: SYSTEM SYSTEM on 02-19-2024 Basophils/100 [...] Jorge e Manageron 02-19-2024 Interdisciplinary Note - [employer] Interdisciplinary Note - Tool [employer] This SW met with patient today to discuss discharge plans. Plan remains for patient to go to [place] in [place] once precert is obtained. All updates have been sent to [place] for the precert, which was submitted on Monday. Patient requested that SW contact his once precert is obtained, or before the end of the day if not obtained today. This SW made a tc to patient's and let her know that precert is still pending. She voiced understanding. Normal [facility] Comment on above: Result Comment: Elec tronically Signed By: Fely [email or web address].br\Date and Time Signed: 02/19/24 15:59 EDT Interdisciplinary Note - Tool And [employer] Interdisciplinary Note - Tool And [employer] This SW met with patient today to discuss discharge plans. Plan remains for patient to go to [place] in [place] once precert is obtained. All updates have been sent to [place] for the precert, which was submitted on Monday. Patient requested that SW contact his once precert is obtained, or before the end of the day if not obtained today. Normal [facility] Comment on above: Result Comment: [...] correct. Mike Montes M.D. ca Dictated: 02/12/2024 [id number] Transcribed: 02/13/2024 [facility] Comment on above: Result Comment: Elec [...] Local, Monitored anesthesia care. Performed by: MD Juanito, Laura Rodriguez. Medications Complications: None. Notes: The patient was [...] tolerated the procedure well without complications.. Normal [facility] Comment on above: Result Comment: Elec tronically Signed By: MD Juanito, Laura Rodriguez\.br\Date and Time Signed: 02/19/24 08:36 EDT eGFRon 02-19-2024 eGFR 46 mL/min/1.73 m2 Low >=59 [facility] Comment on above: Order Comment: Order added by Discern Expert. Performed By: #### 1 [id number] #### [facility] [address] [place] [address] Capillary Glucose POCon 02-03 Glucose [Mass/Vol] 348 mg/dL High 55-99 [facility] Comment on above: Result Comment: Deon hathaway RN/ Performed By: #### 2 [id number] #### [facility] [address] [place] [address] Glucose [Mass/Vol] 323 mg/dL High 55-99 [facility] Comment on above: Result Comment: eDon hathaway RN/ Performed By: #### 2 [id number] #### [facility] [address] [place] [address] Glucose [Mass/Vol] 323 mg/dL High 55-99 [facility] Comment on above: Result Comment: Deon hathaway RN/ Performed By: #### 2 [id number] #### [facility] [address] [place] [address] Glucose [Mass/Vol] 210 mg/dL High 55-99 [facility] Comment on above: Result Comment: Deon hathaway RN/ Performed By: #### 2 [id number] #### [facility] [address] [place] [address] BMPon 02-17-2024 Anion gap [Moles/Vol] 13 mmol/L Normal 6-16 [facility] Comment on above: Performed By: #### 2 [id number] #### [facility] [address] [place] [address] Calcium [Mass/Vol] 9.3 mg/dL Normal 8.9-11.1 [facility] Comment on above: Performed By: #### 2 [id number] #### [facility] [address] [place] [address] Chloride [Moles/Vol] 98 mmol/L Low 101-111 [facility] Comment on above: Performed By: #### 2 [id number] #### [facility] [address] [place] [address] CO2 [Moles/Vol] 28 mmol/L Normal 21-31 [facility] Comment on above: Performed By: #### 2 [id number] #### [facility] [address] [place] [address] Creatinine [Mass/Vol] 1.8 mg/dL High 0.5-1.3 [facility] Comment on above: Performed By: #### 2 [id number] #### [facility] [address] [place] [address] Glucose [Mass/Vol] 374 mg/dL High 55-199 [facility] Comment on above: Performed By: #### 2 [id number] #### [facility] [address] [place] [address] Potassium [Moles/Vol] 4.6 mmol/L Normal 3.5-5.3 [facility] Comment on above: Performed By: #### 2 [id number] #### [facility] [address] [place] [address] Sodium [Moles/Vol] 134 mmol/L Low 135-145 [facility] Comment on above: Performed By: #### 2 [id number] #### [facility] [address] [place] [address] Urea nitrogen [Mass/Vol] 25 mg/dL High 5-21 [facility] Comment on above: Performed By: #### 2 [id number] #### [facility] [address] [place] [address] Urea nitrogen/Creatinine [Mass ratio] 14 No Units Normal 10-20 [facility] Comment on above: Performed By: #### 2 [id number] #### [facility] [address] [place] [address] CBC w/ Auto Diffon 4 Basophils/100 WBC (Bld) 1.0 % Normal 0.0-2.0 [facility] Comment on above: Performed By: #### 2 [id number] #### [facility] [address] [place] [address] Basophils/Leukocytes Auto (Bld) [Pure # fraction] 0.1 E9/L Normal 0.0-0.2 [facility] Comment on above: Performed By: #### 2 [id number] #### [facility] [address] [place] [address] Eosinophils (Bld) [#/Vol] 0.5 E9/L Normal 0.0-0.5 [facility] Comment on above: Performed By: #### 2 [id number] #### [facility] [address] [place] [address] Eosinophils/100 WBC (Bld) 5.0 % Normal 0.0-8.0 [facility] Comment on above: Performed By: #### 2 [id number] #### [facility] [address] [place] [address] Erythrocyte distribution width (RBC) [Ratio] 21.6 % High 10.9-14.2 [facility] Comment on above: Performed By: #### 2 560318 #### [facility] [address] [place] [address] Hematocrit (Bld) [Volume fraction] 24.8 % Low 37.7-49.0 [facility] Comment on above: Performed By: #### 2 [id number] #### [facility] [address] [place] [address] Hemoglobin (Bld) [Mass/Vol] 8.5 g/dL Low 13.5-17.5 [facility] Comment on above: Performed By: #### 2 [id number] #### [facility] [address] [place] [address] Lymphocytes (Bld) [#/Vol] 1.6 E9/L Normal 1.0-4.0 [facility] Comment on above: Performed By: #### 2 [id number] #### [facility] [address] [place] [address] Lymphocytes/100 WBC (Bld) 15.2 % Normal 14.0-50.0 [facility] Comment on above: Performed By: #### 2 [id number] #### [facility] [address] [place] [address] MCH (RBC) [Entitic mass] 24.3 pg Low 27.0-34.0 [facility] Comment on above: Performed By: #### 2 [id number] #### [facility] [address] [place] [address] MCHC (RBC) [Mass/Vol] 34.2 g/dL Normal 31.4-36.0 [facility] Comment on above: Performed By: #### 2 [id number] #### [facility] [address] [place] [address] MCV (RBC) [Entitic vol] 70.9 fL Low 80.0-100.0 [facility] Comment on above: Performed By: #### 2 486354 #### [facility] [address] [place] [address] Microcytes Ql (Bld) PRESENT Invalid Interpretation Code [facility] Comment on above: Performed By: #### 2 [id number] #### [facility] [address] [place] [address] Monocytes (Bld) [#/Vol] 1.1 E9/L High 0.2-1.0 [facility] Comment on above: Performed By: #### 2 [id number] #### [facility] [address] [place] [address] Neutrophils (Bld) [#/Vol] 7.1 E9/L Normal 2.0-7.5 [facility] Comment on above: Performed By: #### 2 912636 #### [facility] [address] [place] [address] Neutrophils/100 WBC (Bld) 68.3 % Normal 36.0-75.0 [facility] Comment on above: Performed By: #### 2 [id number] #### [facility] [address] [place] [address] Platelet 395.0 E9/L Normal 150.0-500. 0 [facility] Comment on above: Performed By: #### 2 [id number] #### [facility] [address] [place] [address] Platelet mean volume (Bld) [Entitic vol] 8.2 fL Normal 6.4-10.8 [facility] Comment on above: Performed By: #### 2 [id number] #### [facility] [address] [place] [address] RBC (Bld) [#/Vol] 3.5 E12/L Low 4.3-5.9 [facility] Comment on above: Performed By: #### 2 [id number] #### [facility] [address] [place] [address] RBC size Nom (Bld) SEE MORPHOLOGY Invalid Interpretation Code [facility] Comment on above: Performed By: #### 2 140086 #### [facility] [address] [place] [address] WBC corrected for nucl RBC Auto (Bld) [#/Vol] 10.4 E9/L Normal 4.0-11.0 [facility] Comment on above: Performed By: #### 2 679165 #### [facility] [address] [place] [address] Capillary Glucose POCon 02-03 Glucose [Mass/Vol] 366 mg/dL High 55-99 [facility] Comment on above: Result Comment: Deon hathaway RN/ Performed By: #### 2 [id number] #### [facility] [address] [place] [address] Glucose [Mass/Vol] 314 mg/dL High 55-99 [facility] Comment on above: Result Comment: Deon hathaway RN/ Performed By: #### 2 [id number] #### [facility] [address] [place] [address] Glucose [Mass/Vol] 389 mg/dL High 55- [facility] Comment on above: Result Comment: Deon hathaway RN/ Performed By: #### 2 [id number] #### [facility] [address] [place] [address] Glucose [Mass/Vol] 298 mg/dL High 55-99 [facility] Comment on above: Result Comment: Deon hathaway RN/ Performed By: #### 2 [id number] #### [facility] [address] [place] [address] HEMATOLOGYOrdered By: SYSTEM SYSTEM on 02-17-2024 Microcytes Ql (Bld) PRESENT *NA* (02/17/24 10:59 AM) Invalid Interpretation Code Remisol Heme eGFRon 02-17-2024 eGFR 43 mL/min/1.73 m2 Low >=59 [facility] Comment on above: Order Comment: Order added by Discern Expert. Performed By: #### 1 [id number] #### [facility] [address] [place] [address] BMPon 02-16-2024 Anion gap [Moles/Vol] 12 mmol/L Normal 6-16 [facility] Comment on above: Performed By: #### 2 422117 #### [facility] [address] [place] [address] Calcium [Mass/Vol] 8.5 mg/dL Low 8.9-11.1 [facility] Comment on above: Performed By: #### 2 544156 #### [facility] [address] [place] [address] Chloride [Moles/Vol] 100 mmol/L Low 101-111 [facility] Comment on above: Performed By: #### 2 881408 #### [facility] [address] [place] [address] CO2 [Moles/Vol] 27 mmol/L Normal 21-31 [facility] Comment on above: Performed By: #### 2 [id number] #### [facility] [address] [place] [address] Creatinine [Mass/Vol] 1.8 mg/dL High 0.5-1.3 [facility] Comment on above: Performed By: #### 2 446238 #### [facility] [address] [place] [address] Glucose [Mass/Vol] 242 mg/dL High 55-199 [facility] Comment on above: Performed By: #### 2 [id number] #### [facility] [address] [place] [address] Potassium [Moles/Vol] 3.8 mmol/L Normal 3.5-5.3 [facility] Comment on above: Performed By: #### 2 377493 #### [facility] [address] [place] [address] Sodium [Moles/Vol] 135 mmol/L Normal 135-145 [facility] Comment on above: Performed By: #### 2 [id number] #### [facility] [address] [place] [address] Urea nitrogen [Mass/Vol] 25 mg/dL High 5-21 [facility] Comment on above: Performed By: #### 2 [id number] #### [facility] [address] [place] [address] Urea nitrogen/Creatinine [Mass ratio] 14 No Units Normal 10-20 [facility] Comment on above: Performed By: #### 2 [id number] #### [facility] [address] [place] [address] CBC w/ Auto Diffon 4 Basophils/100 WBC (Bld) 0.7 % Normal 0.0-2.0 [facility] Comment on above: Performed By: #### 2 202154 #### [facility] [address] [place] [address] Basophils/Leukocytes Auto (Bld) [Pure # fraction] 0.1 E9/L Normal 0.0-0.2 [facility] Comment on above: Performed By: #### 2 [id number] #### [facility] [address] [place] [address] Eosinophils (Bld) [#/Vol] 0.5 E9/L Normal 0.0-0.5 [facility] Comment on above: Performed By: #### 2 419255 #### [facility] [address] [place] [address] Eosinophils/100 WBC (Bld) 4.2 % Normal 0.0-8.0 [facility] Comment on above: Performed By: #### 2 [id number] #### [facility] [address] [place] [address] Erythrocyte distribution width (RBC) [Ratio] 21.5 % High 10.9-14.2 [facility] Comment on above: Performed By: #### 2 719781 #### [facility] [address] [place] [address] Hematocrit (Bld) [Volume fraction] 22.9 % Low 37.7-49.0 [facility] Comment on above: Performed By: #### 2 [id number] #### [facility] [address] [place] [address] Hemoglobin (Bld) [Mass/Vol] 7.6 g/dL Low 13.5-17.5 [facility] Comment on above: Performed By: #### 2 229591 #### [facility] [address] [place] [address] Hypochromia Auto Ql (Bld) PRESENT Invalid Interpretation Code [facility] Comment on above: Performed By: #### 2 [id number] #### [facility] [address] [place] [address] Lymphocytes (Bld) [#/Vol] 1.4 E9/L Normal 1.0-4.0 [facility] Comment on above: Performed By: #### 2 538710 #### [facility] [address] [place] [address] Lymphocytes/100 WBC (Bld) 12.7 % Low 14.0-50.0 [facility] Comment on above: Performed By: #### 2 040470 #### [facility] [address] [place] [address] MCH (RBC) [Entitic mass] 23.4 pg Low 27.0-34.0 [facility] Comment on above: Performed By: #### 2 [id number] #### [facility] [address] [place] [address] MCHC (RBC) [Mass/Vol] 33.0 g/dL Normal 31.4-36.0 [facility] Comment on above: Performed By: #### 2 639817 #### [facility] [address] [place] [address] MCV (RBC) [Entitic vol] 70.9 fL Low 80.0-100.0 [facility] Comment on above: Performed By: #### 2 [id number] #### [facility] [address] [place] [address] Microcytes Ql (Bld) PRESENT Invalid Interpretation Code [facility] Comment on above: Performed By: #### 2 [id number] #### [facility] [address] [place] [address] Monocytes (Bld) [#/Vol] 1.3 E9/L High 0.2-1.0 [facility] Comment on above: Performed By: #### 2 [id number] #### [facility] [address] [place] [address] Neutrophils (Bld) [#/Vol] 7.7 E9/L High 2.0-7.5 [facility] Comment on above: Performed By: #### 2 [id number] #### [facility] [address] [place] [address] Neutrophils/100 WBC (Bld) 70.1 % Normal 36.0-75.0 [facility] Comment on above: Performed By: #### 2 546213 #### [facility] [address] [place] [address] Platelet 284.0 E9/L Normal 150.0-500. 0 [facility] Comment on above: Performed By: #### 2 [id number] #### [facility] [address] [place] [address] Platelet mean volume (Bld) [Entitic vol] 8.4 fL Normal 6.4-10.8 [facility] Comment on above: Performed By: #### 2 775481 #### [facility] [address] [place] [address] RBC (Bld) [#/Vol] 3.2 E12/L Low 4.3-5.9 [facility] Comment on above: Performed By: #### 2 522011 #### [facility] [address] [place] [address] RBC size Nom (Bld) SEE MORPHOLOGY Invalid Interpretation Code [facility] Comment on above: Performed By: #### 2 [id number] #### [facility] [address] [place] [address] WBC corrected for nucl RBC Auto (Bld) [#/Vol] 11.0 E9/L Normal 4.0-11.0 [facility] Comment on above: Performed By: #### 2 [id number] #### [facility] [address] [place] [address] Capillary Glucose POCon 02-03 Glucose [Mass/Vol] 266 mg/dL High 55-99 [facility] Comment on above: Result Comment: Deon ETIENNE Performed By: #### 2 [id number] #### [facility] [address] [place] [address] Glucose [Mass/Vol] 319 mg/dL High 55-99 [facility] Comment on above: Result Comment: Deon ETIENNE Performed By: #### 2 [id number] #### [facility] [address] [place] [address] Glucose [Mass/Vol] 403 mg/dL High 55-99 [facility] Comment on above: Result Comment: Deon ETIENNE Performed By: #### 2 [id number] #### [facility] [address] [place] [address] Glucose [Mass/Vol] 319 mg/dL High 55-99 [facility] Comment on above: Result Comment: Deon ETIENNE Performed By: #### 2 [id number] #### [facility] [address] [place] [address] Glucose [Mass/Vol] 253 mg/dL High 55-99 [facility] Comment on above: Result Comment: Deon ETIENNE Performed By: #### 2 [id number] #### [facility] [address] [place] [address] Coding Queryon 02-16-2024 Coding Query Coding Query From: Eliz Diaz RN To: Marisela HERRERA, Elan Robbins; [...] Name: MYRA PICKARD SR; Caller Number: H Dx: acute blood loss anemia Normal [facility] Inpatient Clinical Summaryon 02-16-2024 Inpatient Clinical Summary Inpatient Clinical Summary [address] [address] Clinical Summary Person Information: Name: MYRA PICKARD SR Age: 58 Years : 1965 Sex: Male PCP: TERESA LYNCH DO Marital Status: Race: White Ethnicity: Non- or Language: Afghan Visit Id: Visit Reason: I70.261 Speciality: Acuity: Enc Type: Inpatient Med Service: Medical Arrival: 02/12/2024 11:13:26 Discharge: Dispo Type: Address: [address] [place] [id number] Provider Notes: Diagnosis: 1:Hx of right BKA; [...] MD Follow up: Patient Education Information: Normal [facility] Inpatient Patient Summaryon 02-16-2024 Inpatient Patient Summary Inpatient Patient Summary [place] [address] Patient Discharge Instructions PERSON INFORMATION Name: MYRA [...] nearby participating provider. Comment: MATTEO Morrow SR, MYRA Daniel, have received the attached patient education [...] Last Dose: (more content not included)... Normal [facility] Insurance Correspondence Off 02-16-2024 Insurance Correspondence [...] counts were correct. Sully Valdez Dictated: 02/12/2024 [id number] Transcribed: 02/13/2024 [facility] Interdisciplinary Note - Jorge e Manageron 02-16-2024 Interdisciplinary Note - [employer] Interdisciplinary Note - [employer] This SW received notification from [facility] that patient's had called and wanted to cancel the Acute Rehab and proceed with [facility] TC from Acute Rehab was [...] MILANA also explained that if going to [facility], precert would have to be obtained. SW spent a lengthy amount of time going over the differences between the 2 faciliites with patient. He informed SW that his choice was to go to [place], not Acute Rehab. SW notified Acute Rehab [...] 3 steps to enter their home. Normal [facility] Comment on above: Result Comment: Elec tronically Signed By: Evens SÁNCHEZ, Fely Martin\.br\Date and Time Signed: 02/16/24 12:45 EDT eGFRon 02-16-2024 eGFR 43 mL/min/1.73 m2 Low >=59 [facility] Comment on above: Order Comment: Order added by Discern Expert. Performed By: #### 1 [id number] #### [facility] [address] [place] [address] [facility] Anion gap [Moles/Vol] 9 mmol/L Normal 6-16 [facility] Comment on above: Performed By: #### 2 [id number] #### [facility] [address] [place] [address] Calcium [Mass/Vol] 8.3 mg/dL Low 8.9-11.1 [facility] Comment on above: Performed By: #### 2 [id number] #### [facility] [address] [place] [address] Chloride [Moles/Vol] 98 mmol/L Low 101-111 [facility] Comment on above: Performed By: #### 2 [id number] #### [facility] [address] [place] [address] CO2 [Moles/Vol] 30 mmol/L Normal 21-31 [facility] Comment on above: Performed By: #### 2 [id number] #### [facility] [address] [place] [address] Creatinine [Mass/Vol] 1.9 mg/dL High 0.5-1.3 [facility] Comment on above: Performed By: #### 2 [id number] #### [facility] [address] [place] [address] Glucose [Mass/Vol] 319 mg/dL High 55-199 [facility] Comment on above: Performed By: #### 2 [id number] #### [facility] [address] [place] [address] Potassium [Moles/Vol] 3.9 mmol/L Normal 3.5-5.3 [facility] Comment on above: Performed By: #### 2 [id number] #### [facility] [address] [place] [address] Sodium [Moles/Vol] 133 mmol/L Low 135-145 [facility] Comment on above: Performed By: #### 2 [id number] #### [facility] [address] [place] [address] Urea nitrogen [Mass/Vol] 25 mg/dL High 5-21 [facility] Comment on above: Performed By: #### 2 [id number] #### [facility] [address] [place] [address] Urea nitrogen/Creatinine [Mass ratio] 13 No Units Normal 10-20 [facility] Comment on above: Performed By: #### 2 [id number] #### [facility] [address] [place] [address] CBC w/Indiceson 02-15-2024 Erythrocyte distribution width (RBC) [Ratio] 20.9 % High 10.9-14.2 [facility] Comment on above: Performed By: #### 2 [id number] #### [facility] [address] [place] [address] Hematocrit (Bld) [Volume fraction] 22.2 % Low 37.7-49.0 [facility] Comment on above: Performed By: #### 2 [id number] #### [facility] [address] [place] [address] Hemoglobin (Bld) [Mass/Vol] 7.7 g/dL Low 13.5-17.5 [facility] Comment on above: Performed By: #### 2 [id number] #### [facility] [address] [place] [address] MCH (RBC) [Entitic mass] 24.3 pg Low 27.0-34.0 [facility] Comment on above: Performed By: #### 2 [id number] #### [facility] [address] [place] [address] MCHC (RBC) [Mass/Vol] 34.6 g/dL Normal 31.4-36.0 [facility] Comment on above: Performed By: #### 2 [id number] #### [facility] [address] [place] [address] MCV (RBC) [Entitic vol] 70.2 fL Low 80.0-100.0 [facility] Comment on above: Performed By: #### 2 [id number] #### [facility] [address] [place] [address] Platelet 239.0 E9/L Normal 150.0-500. 0 [facility] Comment on above: Performed By: #### 2 [id number] #### [facility] [address] [place] [address] Platelet mean volume (Bld) [Entitic vol] 8.2 fL Normal 6.4-10.8 [facility] Comment on above: Performed By: #### 2 [id number] #### [facility] [address] [place] [address] RBC (Bld) [#/Vol] 3.2 E12/L Low 4.3-5.9 [facility] Comment on above: Performed By: #### 2 [id number] #### [facility] [address] [place] [address] RBC size Nom (Bld) NORMAL Invalid Interpretation Code [facility] Comment on above: Performed By: #### 2 [id number] #### [facility] [address] [place] [address] WBC corrected for nucl RBC Auto (Bld) [#/Vol] 9.0 E9/L Normal 4.0-11.0 [facility] Comment on above: Performed By: #### 2 [id number] #### [facility] [address] [place] [address] CHEMISTRYOrdered By: SYSTEM SYSTEM on 02-15-2024 Magnesium [Mass/Vol] 1.7 mg/dL Normal 1.3 - 2 .4 mg/dL Remisol Chem Phosphate [Mass/Vol] 3.8 mg/dL Normal 1.9 - 4 .6 mg/dL Rem[facility] COAGULATIONOrdered By: Nely on Bruce on 02-15-2024 aPTT Coag (PPP) [Time] 28.6 s Normal 25.1 - 36.5 second(s) [facility] Auto Coag Comment on above: Interpretive Data: P fracisco 15 days - 4 weeks 1 - [...] same coagulation reagent and instrumentation as [facility]. Currently there are no coagulation studies available worldwide for children to 14 days, and no normal ranges. Heparin therapeutic range (represented by Anti-Factor Xa activity of 0.2 - 0.4 U/mL) corresponds to PTT of 56.6 - 109.0 sec. INR Coag (PPP) [Relative time] 1.09 {INR} Invalid Interpretation Code [facility] Auto Coag Comment on above: Interpretive Data: I NR results are specifically intended to assess patients stabilized on long-term Anticoagulation therapy suggested INR s Less Intensive Anticoagulation 2.0 3.0 Conventional Range 3.0 4.5 PT Coag (PPP) [Time] 12.2 s Normal 9.4 - 1 2.5 second(s) [facility] Auto Coag Comment on above: Interpretive Data: [...] same coagulation reagent and instrumentation as [facility]. Currently there are no coagulation studies available worldwide for children to 14 days, and no normal ranges. Capillary Glucose POCon 02-03 Glucose [Mass/Vol] 398 mg/dL High 55-99 [facility] Comment on above: Result Comment: Deon ETIENNE Performed By: #### 2 [id number] #### [facility] [address] [place] [address] Glucose [Mass/Vol] 337 mg/dL High 55-[address] [place] [address] Comment on above: Result Comment: Deon ETIENNE Performed By: #### 2 [id number] #### [facility] [address] [place] [address] Glucose [Mass/Vol] 228 mg/dL High [address] [place] [address] Comment on above: Result Comment: Deon ETIENNE Performed By: #### 2 [id number] #### [facility] [address] [place] [address] Glucose [Mass/Vol] 309 mg/dL High 55-99 [facility] Comment on above: Result Comment: Deon ETIENNE Performed By: #### 2 [id number] #### [facility] [address] [place] [address] Interdisciplinary Note - Jorge e Manageron 02-15-2024 Interdisciplinary Note - [employer] Interdisciplinary Note - [employer] CRM to room 309 Patient is awake, alert and oriented. Patient is from home with his spouse. Patient verified PCP, DME and insurance. Patient is here as inpatient. Patient had Right BKA. Patient is assigned to Dr Antonio. Vascular Dr Montes did surgery. Patient is getting transfusion PRBC. Patient will need PT/OT added when appropriate. Patient would like rehab stay. Choices were [facility], [facility] and [facility]. [facility] can accept. Patient was provided CRM contact, white board updated. CRM following DC date when [facility] [employer] can take per Dr Antonio patient is not ready for DC now drop in HGB, bleeding at stump and still on IV pain meds Rehab needs him on an oral regimen Normal [facility] Comment on above: Result Comment: Elec tronically Signed By: Raina Aguilar\.br\Date and Time Signed: 02/15/24 14:08 EDT Magnesiumon 02-15-2024 Magnesium [Mass/Vol] 1.7 mg/dL Normal 1.3-2.4 [facility] Comment on above: Performed By: #### 2 [id number] #### [facility] [address] [place] [address] PT & PTTon 02-15-2024 aPTT Coag (PPP) [Time] 28.6 second(s) Normal 25.1-36.5 [facility] Comment on above: Result Comment: [...] same coagulation reagent and instrumentation as [facility]. Currently there are no coagulation studies available worldwide for children to 14 days, and no normal ranges. Heparin therapeutic range (represented by Anti-Factor Xa activity of 0.2 - 0.4 U/mL) corresponds to PTT of 56.6 - 109.0 sec. Performed By: #### 1 [id number] #### [facility] [address] [place] [address] INR Coag (PPP) [Relative time] 1.09 {INR} Invalid Interpretation Code [facility] Comment on above: Result Comment: INR results are specifically intended to assess patients stabilized on long-term Anticoagulation therapy suggested INR?s ?Less Intensive Anticoagulation? 2.0 ? 3.0 Conventional Range 3.0 ? 4.5 Performed By: #### 1 [id number] #### [facility] [address] [place] [address] PT Coag (PPP) [Time] 12.2 second(s) Normal 9.4-12.5 [facility] Comment on above: Result Comment: [...] same coagulation reagent and instrumentation as [facility]. Currently there are no coagulation studies available worldwide for children to 14 days, and no normal ranges. Performed By: #### 1 [id number] #### [facility] [address] [place] [address] Phosphoruson 02-15-2024 Phosphate [Mass/Vol] 3.8 mg/dL Normal 1.9-4.6 [facility] Comment on above: Performed By: #### 2 [id number] #### [facility] [address] [place] [address] eGFRon 02-15-2024 eGFR 40 mL/min/1.73 m2 Low >=59 [facility] Comment on above: Order Comment: Order added by Discern Expert. Performed By: #### 1 [id number] #### [facility] [address] [place] [address] BMPon 02-14-2024 Anion gap [Moles/Vol] 12 mmol/L Normal 6-16 [facility] Comment on above: Performed By: #### 2 [id number] #### [facility] [address] [place] [address] Calcium [Mass/Vol] 8.3 mg/dL Low 8.9-11.1 [facility] Comment on above: Performed By: #### 2 [id number] #### [facility] [address] [place] [address] Chloride [Moles/Vol] 96 mmol/L Low 101-111 [facility] Comment on above: Performed By: #### 2 [id number] #### [facility] [address] [place] [address] CO2 [Moles/Vol] 28 mmol/L Normal 21-31 [facility] Comment on above: Performed By: #### 2 [id number] #### [facility] [address] [place] [address] Creatinine [Mass/Vol] 1.8 mg/dL High 0.5-1.3 [facility] Comment on above: Performed By: #### 2 [id number] #### [facility] [address] [place] [address] Glucose [Mass/Vol] 298 mg/dL High 55-199 [facility] Comment on above: Performed By: #### 2 [id number] #### [facility] [address] [place] [address] Potassium [Moles/Vol] 3.7 mmol/L Normal 3.5-5.3 [facility] Comment on above: Performed By: #### 2 [id number] #### [facility] [address] [place] [address] Sodium [Moles/Vol] 132 mmol/L Low 135-145 [facility] Comment on above: Performed By: #### 2 [id number] #### [facility] [address] [place] [address] Urea nitrogen [Mass/Vol] 21 mg/dL Normal 5-21 [facility] Comment on above: Performed By: #### 2 [id number] #### [facility] [address] [place] [address] Urea nitrogen/Creatinine [Mass ratio] 12 No Units Normal 10-20 [facility] Comment on above: Performed By: #### 2 [id number] #### [facility] [address] [place] [address] CBC w/ Auto Diffon 4 Basophils/100 WBC (Bld) 1.9 % Normal 0.0-2.0 [facility] Comment on above: Performed By: #### 2 [id number] #### [facility] [address] [place] [address] Basophils/Leukocytes Auto (Bld) [Pure # fraction] 0.2 E9/L Normal 0.0-0.2 [facility] Comment on above: Performed By: #### 2 762189 #### [facility] [address] [place] [address] Eosinophils (Bld) [#/Vol] 0.3 E9/L Normal 0.0-0.5 [facility] Comment on above: Performed By: #### 2 [id number] #### [facility] [address] [place] [address] Eosinophils/100 WBC (Bld) 3.1 % Normal 0.0-8.0 [facility] Comment on above: Performed By: #### 2 [id number] #### [facility] [address] [place] [address] Erythrocyte distribution width (RBC) [Ratio] 21.1 % High 10.9-14.2 [facility] Comment on above: Performed By: #### 2 [id number] #### [facility] [address] [place] [address] Hematocrit (Bld) [Volume fraction] 26.4 % Low 37.7-49.0 [facility] Comment on above: Performed By: #### 2 [id number] #### [facility] [address] [place] [address] Hemoglobin (Bld) [Mass/Vol] 8.5 g/dL Low 13.5-17.5 [facility] Comment on above: Performed By: #### 2 [id number] #### [facility] [address] [place] [address] Hypochromia Auto Ql (Bld) PRESENT Invalid Interpretation Code [facility] Comment on above: Performed By: #### 2 [id number] #### [facility] [address] [place] [address] Lymphocytes (Bld) [#/Vol] 1.1 E9/L Normal 1.0-4.0 [facility] Comment on above: Performed By: #### 2 [id number] #### [facility] [address] [place] [address] Lymphocytes/100 WBC (Bld) 11.3 % Low 14.0-50.0 [facility] Comment on above: Performed By: #### 2 [id number] #### [facility] [address] [place] [address] MCH (RBC) [Entitic mass] 23.3 pg Low 27.0-34.0 [facility] Comment on above: Performed By: #### 2 [id number] #### [facility] [address] [place] [address] MCHC (RBC) [Mass/Vol] 32.4 g/dL Normal 31.4-36.0 [facility] Comment on above: Performed By: #### 2 [id number] #### [facility] [address] [place] [address] MCV (RBC) [Entitic vol] 71.8 fL Low 80.0-100.0 [facility] Comment on above: Performed By: #### 2 [id number] #### [facility] [address] [place] [address] Microcytes Ql (Bld) PRESENT Invalid Interpretation Code [facility] Comment on above: Performed By: #### 2 [id number] #### [facility] [address] [place] [address] Monocytes (Bld) [#/Vol] 1.0 E9/L Normal 0.2-1.0 [facility] Comment on above: Performed By: #### 2 [id number] #### [facility] [address] [place] [address] Neutrophils (Bld) [#/Vol] 7.5 E9/L Normal 2.0-7.5 [facility] Comment on above: Performed By: #### 2 [id number] #### [facility] [address] [place] [address] Neutrophils/100 WBC (Bld) 74.1 % Normal 36.0-75.0 [facility] Comment on above: Performed By: #### 2 [id number] #### [facility] [address] [place] [address] Platelet mean volume (Bld) [Entitic vol] 8.3 fL Normal 6.4-10.8 [facility] Comment on above: Performed By: #### 2 [id number] #### [facility] [address] [place] [address] Platelets (Bld) [#/Vol] 244.0 E9/L Normal 150.0-500. 0 [facility] Comment on above: Performed By: #### 2 [id number] #### [facility] [address] [place] [address] RBC (Bld) [#/Vol] 3.7 E12/L Low 4.3-5.9 [facility] Comment on above: Performed By: #### 2 [id number] #### [facility] [address] [place] [address] RBC size Nom (Bld) SEE MORPHOLOGY Invalid Interpretation Code [facility] Comment on above: Performed By: #### 2 [id number] #### [facility] [address] [place] [address] WBC corrected for nucl RBC Auto (Bld) [#/Vol] 10.2 E9/L Normal 4.0-11.0 [facility] Comment on above: Performed By: #### 2 [id number] #### [facility] [address] [place] [address] CHEMISTRYOrdered By: SYSTEM SYSTEM on 02-14-2024 Magnesium [Mass/Vol] 1.8 mg/dL Normal 1.3 - 2 .4 mg/dL Remisol Chem Phosphate [Mass/Vol] 3.8 mg/dL Normal 1.9 - 4 .6 mg/dL Remisol Chem COAGULATIONOrdered By: Deborah Parks on 02-14-2024 aPTT Coag (PPP) [Time] 28.8 s Normal 25.1 - 36.5 second(s) [facility] Auto Coag Comment on above: Interpretive Data: P fracisco 15 days - 4 weeks 1 - [...] same coagulation reagent and instrumentation as [facility]. Currently there are no coagulation studies available worldwide for children to 14 days, and no normal ranges. Heparin therapeutic range (represented by Anti-Factor Xa activity of 0.2 - 0.4 U/mL) corresponds to PTT of 56.6 - 109.0 sec. INR Coag (PPP) [Relative time] 1.04 {INR} Invalid Interpretation Code [facility] Auto [facility]ag Comment on above: Interpretive Data: I NR results are specifically intended to assess patients stabilized on long-term Anticoagulation therapy suggested INR s Less Intensive Anticoagulation 2.0 3.0 Conventional Range 3.0 4.5 PT Coag (PPP) [Time] 11.7 s Normal 9.4 - 1 2.5 second(s) [facility] Auto Coag Comment on above: Interpretive Data: [...] same coagulation reagent and instrumentation as [facility]. Currently there are no coagulation studies available worldwide for children to 14 days, and no normal ranges. Capillary Glucose POCon 02-03 Glucose [Mass/Vol] 269 mg/dL High 55-99 [facility] Comment on above: Result Comment: Deon ETIENNE Performed By: #### 2 [id number] #### [facility] [address] [place] [address] Glucose [Mass/Vol] 279 mg/dL High 55-99 [facility] Comment on above: Result Comment: Deon ETIENNE Performed By: #### 2 [id number] #### [facility] [address] [place] [address] Glucose [Mass/Vol] 285 mg/dL High 55-99 [facility] Comment on above: Result Comment: Repe at Test Performed By: #### 2 [id number] #### [facility] [address] [place] [address] Glucose [Mass/Vol] 242 mg/dL High 55-99 [facility] Comment on above: Result Comment: Repe at Test Performed By: #### 2 [id number] #### [facility] [address] [place] [address] Interdisciplinary Note - Jorge e Manageron 02-14-2024 Interdisciplinary Note - [employer] Interdisciplinary Note - [employer] This SW rounded with patient in room 309 this morning. Patient is alert, oriented, and involved in his plan of care. He remains agreeable to going to 1) [facility] Acute [facility]hab - referral pending, 2) [place] - they have accepted, or 3) [facility] - they have accepted. Acute Rehab is awaiting therapy notes to make their final determination. SW will update patient once determination is received. Patient did request that SW contact his , Yamileth, with an update this afternoon. TC made to Yamileth and she was updated on the above. She voiced that patient has been refusing her recommendation for [facility] Acute [facility], however SW let her know that he was agreeable this morning. This SW had discussed the differences between Acute Rehab and SNF to patient. Normal [facility] Comment on above: Result Comment: Elec tronically Signed By: Fely Narvaez.br\Date and Time Signed: 02/14/24 12:15 EDT Interdisciplinary Note - [employer] Interdisciplinary Note - [employer] This SW rounded with patient in room 309 this morning. Patient is alert, oriented, and involved in his plan of care. He remains agreeable to going to 1) [facility] Acute [facility] - referral pending, 2) [place] - they have accepted, or 3) [facility] - they have accepted. Acute Rehab is awaiting therapy notes to make their final determination. SW will update patient once determination is received. Patient did request that SW contact his , Yamileth, with an update this afternoon. Normal [facility] Comment on above: Result Comment: [...] follow daily progressing as pt tolerates. Normal [facility] Magnesiumon 02-14-2024 Magnesium [Mass/Vol] 1.8 mg/dL Normal 1.3-2.4 [facility] Comment on above: Performed By: #### 2 [id number] #### [facility] [address] [place] [address] PT & PTTon 02-14-2024 aPTT Coag (PPP) [Time] 28.8 second(s) Normal 25.1-36.5 [facility] Comment on above: Result Comment: [...] same coagulation reagent and instrumentation as [facility]. Currently there are no coagulation studies available worldwide for children to 14 days, and no normal ranges. Heparin therapeutic range (represented by Anti-Factor Xa activity of 0.2 - 0.4 U/mL) corresponds to PTT of 56.6 - 109.0 sec. Performed By: #### 1 [id number] #### [facility] [address] [place] [address] INR Coag (PPP) [Relative time] 1.04 {INR} Invalid Interpretation Code [facility] Comment on above: Result Comment: INR results are specifically intended to assess patients stabilized on long-term Anticoagulation therapy suggested INR?s ?Less Intensive Anticoagulation? 2.0 ? 3.0 Conventional Range 3.0 ? 4.5 Performed By: #### 1 [id number] #### [facility] [address] [place] [address] PT Coag (PPP) [Time] 11.7 second(s) Normal 9.4-12.5 [facility] Comment on above: Result Comment: [...] same coagulation reagent and instrumentation as [facility]. Currently there are no coagulation studies available worldwide for children to 14 days, and no normal ranges. Performed By: #### 1 [id number] #### [facility] [address] [place] [address] Phosphoruson 02-14-2024 Phosphate [Mass/Vol] 3.8 mg/dL Normal 1.9-4.6 [facility] Comment on above: Performed By: #### 2 [id number] #### [facility] [address] [place] [address] eGFRon 02-14-2024 eGFR 43 mL/min/1.73 m2 Low >=59 [facility] Comment on above: Order Comment: Order added by Discern Expert. Performed By: #### 1 [id number] #### [facility] [address] [place] [address] BMPon 02-13-2024 Anion gap [Moles/Vol] 11 mmol/L Normal 6-16 [facility] Comment on above: Performed By: #### 2 [id number] #### [facility] [address] [place] [address] Calcium [Mass/Vol] 8.0 mg/dL Low 8.9-11.1 [facility] Comment on above: Performed By: #### 2 [id number] #### [facility] [address] [place] [address] Chloride [Moles/Vol] 99 mmol/L Low 101-111 [facility] Comment on above: Performed By: #### 2 [id number] #### [facility] [address] [place] [address] CO2 [Moles/Vol] 26 mmol/L Normal 21-31 [facility] Comment on above: Performed By: #### 2 [id number] #### [facility] [address] [place] [address] Creatinine [Mass/Vol] 1.6 mg/dL High 0.5-1.3 [facility] Comment on above: Performed By: #### 2 [id number] #### [facility] [address] [place] [address] Glucose [Mass/Vol] 234 mg/dL High 55-199 [facility] Comment on above: Performed By: #### 2 [id number] #### [facility] [address] [place] [address] Potassium [Moles/Vol] 4.0 mmol/L Normal 3.5-5.3 [facility] Comment on above: Performed By: #### 2 [id number] #### [facility] [address] [place] [address] Sodium [Moles/Vol] 132 mmol/L Low 135-145 [facility] Comment on above: Performed By: #### 2 [id number] #### [facility] [address] [place] [address] Urea nitrogen [Mass/Vol] 19 mg/dL Normal 5-21 [facility] Comment on above: Performed By: #### 2 [id number] #### [facility] [address] [place] [address] Urea nitrogen/Creatinine [Mass ratio] 12 No Units Normal 10-20 [facility] Comment on above: Performed By: #### 2 [id number] #### [facility] [address] [place] [address] CBC w/Indiceson 02-13-2024 Erythrocyte distribution width (RBC) [Ratio] 18.8 % High 10.9-14.2 [facility] Comment on above: Performed By: #### 2 [id number] #### [facility] [address] [place] [address] Hematocrit (Bld) [Volume fraction] 19.5 % Low 37.7-49.0 [facility] Comment on above: Performed By: #### 2 [id number] #### [facility] [address] [place] [address] Hemoglobin (Bld) [Mass/Vol] 6.3 g/dL Abnormal 13.5-17.5 [facility] Comment on above: Result Comment: Crit ical Result Verified by Repeat Analysis Results called to DAVID WELSH by BRAVO and read back on 02/13/2024 05:48:17. Performed By: #### 2 [id number] #### [facility] [address] [place] [address] Hypochromia Auto Ql (Bld) PRESENT Invalid Interpretation Code [facility] Comment on above: Performed By: #### 2 [id number] #### [facility] [address] [place] [address] MCH (RBC) [Entitic mass] 21.6 pg Low 27.0-34.0 [facility] Comment on above: Performed By: #### 2 [id number] #### [facility] [address] [place] [address] MCHC (RBC) [Mass/Vol] 32.3 g/dL Normal 31.4-36.0 [facility] Comment on above: Performed By: #### 2 [id number] #### [facility] [address] [place] [address] MCV (RBC) [Entitic vol] 67.0 fL Low 80.0-100.0 [facility] Comment on above: Performed By: #### 2 [id number] #### [facility] [address] [place] [address] Microcytes Ql (Bld) PRESENT Invalid Interpretation Code [facility] Comment on above: Performed By: #### 2 [id number] #### [facility] [address] [place] [address] Platelet 245.0 E9/L Normal 150.0-500. 0 [facility] Comment on above: Performed By: #### 2 [id number] #### [facility] [address] [place] [address] Platelet mean volume (Bld) [Entitic vol] 8.2 fL Normal 6.4-10.8 [facility] Comment on above: Performed By: #### 2 [id number] #### [facility] [address] [place] [address] RBC (Bld) [#/Vol] 2.9 E12/L Low 4.3-5.9 [facility] Comment on above: Performed By: #### 2 [id number] #### [facility] [address] [place] [address] RBC size Nom (Bld) SEE MORPHOLOGY Invalid Interpretation Code [facility] Comment on above: Performed By: #### 2 [id number] #### [facility] [address] [place] [address] WBC corrected for nucl RBC Auto (Bld) [#/Vol] 12.9 E9/L High 4.0-11.0 [facility] Comment on above: Performed By: #### 2 [id number] #### [facility] [address] [place] [address] CHEMISTRYOrdered By: Simon Helm on 02-13-2024 HbA1c (Bld) [Mass fraction] 10.3 % High <=5.9% [facility] ChemAutoSS CHEMISTRYOrdered By: SYSTEM SYSTEM on 02-13-2024 Magnesium [Mass/Vol] 1.3 mg/dL Normal 1.3 - 2 .4 mg/dL Remisol Chem Phosphate [Mass/Vol] 2.5 mg/dL Normal 1.9 - 4 .6 mg/dL Rem[facility] Chem COAGULATIONOrdered By: Pietro Garibay on 02-13-2024 aPTT Coag (PPP) [Time] 27.5 s Normal 25.1 - 36.5 second(s) [facility] Auto [facility] Comment on above: Interpretive Data: P nasreenguillaume 15 days - 4 weeks 1 - 5 months 6 - 11 months 1 - 5 years 6 - 10 years 11 - 17 years PTT Mean: 35.4 (27.6-45.6) Mean: 33.5 (24.8-40.7) Mean: 32.4 (25.1-40.7) Mean: 31.6 (24.0-39.2) Mean: 31.6 (26.9-38.7) Mean: 31.0 (24.6-38.4) Pediatric Reference ranges were obtained from a study by ab Padilla prepared from 1437 samples obtained at 7 different centers using the same coagulation reagent and instrumentation as [facility]. Currently there are no coagulation studies available worldwide for children to 14 days, and no normal ranges. Heparin therapeutic range (represented by Anti-Factor Xa activity of 0.2 - 0.4 U/mL) corresponds to PTT of 56.6 - 109.0 sec. INR Coag (PPP) [Relative time] 1.11 {INR} Invalid Interpretation Code [facility] Comment on above: Interpretive Data: I NR results are specifically intended to assess patients stabilized on long-term Anticoagulation therapy suggested INR s Less Intensive Anticoagulation 2.0 3.0 Conventional Range 3.0 4.5 PT Coag (PPP) [Time] 12.5 s Normal 9.4 - 1 2.5 second(s) [facility] Comment on above: Interpretive Data: 1 5 days - 4 weeks 1 - 5 months 6 -11 months 1 5 years 6 10 years 11 -17 years Mean: 11.2 (9.5 12.6) Mean: 11.0 (9.7 12.8) Mean: 11.0 (9.8 13.0) Mean: 11.3 (9.9 13.4) Mean: 11.7 (10.0 14.6) Mean: 11.8 (10.0 - 14.1) Pediatric Reference ranges were obtained from a study by ab Padilla prepared from 1437 samples obtained at 7 different centers using the same coagulation reagent and instrumentation as [facility]. Currently there are no coagulation studies available worldwide for children to 14 days, and no normal ranges. Capillary Glucose POCon 02-03 Glucose [Mass/Vol] 332 mg/dL High 55-99 [facility] Comment on above: Result Comment: Deon ETIENNE Performed By: #### 2 [id number] #### [facility] [address] [place] [address] Glucose [Mass/Vol] 194 mg/dL High 55-99 [facility] Comment on above: Result Comment: Deon ETIENNE Performed By: #### 2 [id number] #### [facility] [address] [place] [address] Glucose [Mass/Vol] 195 mg/dL High 55-99 [facility] Comment on above: Result Comment: Deon ETIENNE Performed By: #### 2 [id number] #### [facility] [address] [place] [address] Glucose [Mass/Vol] 194 mg/dL High 55-99 [facility] Comment on above: Result Comment: Deon ETIENNE Performed By: #### 2 [id number] #### [facility] [address] [place] [address] Glucose [Mass/Vol] 324 mg/dL High 55-99 [facility] Comment on above: Result Comment: Deon ETIENNE Performed By: #### 2 [id number] #### [facility] [address] [place] [address] Coding Queryon 02-13-2024 Coding Query Coding Query [...] desired or expected. Thank you!eliz [phone] Normal [facility] Hct & Hgbon 02-13-2024 Hematocrit (Bld) [Volume fraction] 24.4 % Low 37.7-49.0 [facility] Comment on above: Performed By: #### 1 [id number] #### [facility] [address] [place] [address] Hemoglobin (Bld) [Mass/Vol] 7.9 g/dL Low 13.5-17.5 [facility] Comment on above: Performed By: #### 1 [id number] #### [facility] [address] [place] [address] [id number] 02-13-2024 HbA1c (Bld) [Mass fraction] 10.3 % High <=5.9 [facility] Comment on above: Performed By: #### 7 [id number] #### [facility] [address] [place] [address] Interdisciplinary Note - Jorge e Manageron 02-13-2024 Interdisciplinary Note - [employer] Interdisciplinary Note - [employer] CRM to room 309 Patient is awake, alert and oriented. Patient is from home with his spouse. Patient verified PCP, DME and insurance. Patient is here as inpatient. Patient had Right BKA. Patient is assigned to Dr Antonio. Vascular Dr Montes did surgery. Patient is getting transfusion PRBC. Patient will need PT/OT added when appropriate. [place] like [place]. Patient is unsure of choices yet. His spouse was doing some research. CRM did try to call Spouse at [phone] and left VM. CRM did leave printed SNF list in room. Patient was provided CRM contact, white board updated. CRM following DC date TBD. CRM will get updates at 10 AM from hospitalist called CRM choices of [facility], [place] and [facility] for rehab [facility] Comment on above: Result Comment: Elec tronically Signed By: Raina Aguilar\.br\Date and Time Signed: 02/13/24 13:10 EDT Interdisciplinary Note - [employer] Interdisciplinary Note - [employer] CRM to room 309 Patient is awake, alert and oriented. Patient is from home with his spouse. Patient verified PCP, DME and insurance. Patient is here as inpatient. Patient had Right BKA. Patient is assigned to Dr Antonio. Vascular Dr Montes did surgery. Patient is getting transfusion PRBC. Patient will need PT/OT added when appropriate. Patient would like SNF at [place]. Patient is unsure of choices yet. His spouse was doing some research. CRM did try to call Spouse at [phone] and left VM. CRM did leave printed SNF list in room. Patient was provided CRM contact, white board updated. CRM following DC date TBD. CRM will get updates at 10 AM from hospitalist [facility] Comment on above: Result Comment: Elec tronically Signed By: Raina Aguilar\.br\Date and Time Signed: 02/13/24 09:21 EDT Interdisciplinary Note - Maria Elena n 02-13-2024 Interdisciplinary Note - OT Interdisciplinary Note - OT 02/13/24: OT orders received, chart reviewed. Holding OT eval this date as Pt has critically low Hbg levels. Will try again with OT eval when Pt is medically appropriate. Normal [facility] Interdisciplinary Note - PTo n 02-13-2024 Interdisciplinary Note - PT Interdisciplinary Note - PT Order received and chart reviewed. Pt with critical Hgb levels at this time. Will hold and attempt tomorrow Normal [facility] Magnesiumon 02-13-2024 Magnesium [Mass/Vol] 1.3 mg/dL Normal 1.3-2.4 [facility] Comment on above: Performed By: #### 2 [id number] #### [facility] [address] [place] [address] Main OR Intraoperative Recor don 02-13-2024 Main OR Intraoperative Record Main OR Intraoperative Record IntraOp Document Type FT Summary Primary Physician: Mike Montes MD Finalized Date/Time: 02/13/24 13:38:10 Pt. Name: MATTEO CHRISTIAN, MYRA Aceves/Sex: 1965 Male Med Rec #: [id number] Physician: Mike Montes MD Financial #: [id number] Pt. Type: I Room/Bed: [place] [address] Admit/Disch: 02/12/24 11:13:26 - Institution: Case Times [...] Hopkins Role Performed Anesthesiologist Surgeon - Primary Draw Machine Operator - Primary Job Service Consultant Time In 02/12/24 13:26:00 02/12/24 13:45:00 02/12/24 13:26:00 Time Out 02/12/24 14:44:00 02/12/24 14:31:00 02/12/24 14:44:00 Procedure KNEE AMPUTATION KNEE AMPUTATION KNEE AMPUTATION BELOW(Right) BELOW(Right) BELOW(Right) Comments , anesthesia bleaching supervisor Last Modified By: Sara STERN, Tyree Ruiz RN, Tyree Ruiz RN, Tyree Hopkins 02/12/24 14:44:09 02/12/24 14:44:09 02/12/24 14:44:09 Entry 4 Entry 5 Entry 6 Case Attendee Robinson STERN, Jenise Jaquez CST, Radha Corona Role Performed Draw Machine Operator - Primary WELLHEAD PUMPER/SA Scrub - Primary Time In 02/12/24 13:26:00 02/12/24 13:26:00 02/12/24 13:26:00 Time Out 02/12/24 14:44:00 02/12/24 14:44:00 02/12/24 14:44:00 Procedure KNEE AMPUTATION KNEE AMPUTATION KNEE AMPUTATION BELOW(Right) BELOW(Right) BELOW(Right) Comments in orientation Last Modified By: Sara STERN, Tyree Ruiz RN, Tyree Mancera RN 02/12/24 14:44:09 02/12/24 14:44:09 02/12/24 14:44:09 General Comments: Lima Puckett- student education specialist, observing surgical case. Perioperative Protocols FT Pre-Care [...] Aburto CRNA, Given Participants Mike Montes MD, aSra STERN, Robinson Gonzalez RN, Leonid Saenz CST, [...] I70.261-Atherosclerosis Postop Same As Preop Yes of [place] arteries of extremities with gangrene, right leg. Postop Diagnosis I70.261-Atherosclerosis Outcomes Met? Yes of match-[place] arteries of extremities with gangrene, right leg. [...] and tissue Entry 1 Skin Integrity Intact, Dudley, Warm, & Skin Abnormality No Dry Outcomes Met? Yes Last Modified By: Tyree Ruiz RN 02/12/24 12:50:23 Post-Care Text: The patient is free from signs an (more content not included)... Normal [facility] PT & PTTon 02-13-2024 aPTT Coag (PPP) [Time] 27.5 second(s) Normal 25.1-36.5 [facility] Comment on above: Result Comment: [...] same coagulation reagent and instrumentation as [facility]. Currently there are no coagulation studies available worldwide for children to 14 days, and no normal ranges. Heparin therapeutic range (represented by Anti-Factor Xa activity of 0.2 - 0.4 U/mL) corresponds to PTT of 56.6 - 109.0 sec. Performed By: #### 1 [id number] #### [facility] [address] [place] [address] INR Coag (PPP) [Relative time] 1.11 {INR} Invalid Interpretation Code [facility] Comment on above: Result Comment: INR results are specifically intended to assess patients stabilized on long-term Anticoagulation therapy suggested INR?s ?Less Intensive Anticoagulation? 2.0 ? 3.0 Conventional Range 3.0 ? 4.5 Performed By: #### 1 [id number] #### [facility] [address] [place] [address] PT Coag (PPP) [Time] 12.5 second(s) Normal 9.4-12.5 [facility] Comment on above: Result Comment: [...] same coagulation reagent and instrumentation as [facility]. Currently there are no coagulation studies available worldwide for children to 14 days, and no normal ranges. Performed By: #### 1 [id number] #### [facility] [address] [place] [address] Phosphoruson 02-13-2024 Phosphate [Mass/Vol] 2.5 mg/dL Normal 1.9-4.6 [facility] Comment on above: Performed By: #### 2 [id number] #### [facility] [address] [place] [address] RCOon 02-13-2024 # of Units 2 Invalid Interpretation Code [facility] Comment on above: Result Comment: 02/12 6:32 [id number] Blood product ready and called to David Hoskins at 02/13/2024 06:32:44 EDT by [id number]. Performed By: #### 1 [id number] #### [facility] [address] [place] [address] Date Required [id number] Invalid Interpretation Code [facility] Comment on above: Performed By: #### 1 [id number] #### [facility] [address] [place] [address] Order to Transfuse Yes Normal [facility] Comment on above: Performed By: #### 1 [id number] #### [facility] [address] [place] [address] Product Type None Required Invalid Interpretation Code [facility] Comment on above: Performed By: #### 1 [id number] #### [facility] [address] [place] [address] eGFRon 02-13-2024 eGFR 49 mL/min/1.73 m2 Low >=59 [facility] Comment on above: Order Comment: Order added by Discern Expert. Performed By: #### 1 [id number] #### [facility] [address] [place] [address] ABO/Rhon 02-12-2024 ABO/Rh Positive Invalid Interpretation Code [facility] Comment on above: Performed By: #### 2 [id number] #### [facility] [address] [place] [address] ABO/Rh History Checkon 02-11 ABO/Rh History Check Type verified by second s Normal [facility] Comment on above: Performed By: #### 1 [id number] #### [facility] [address] [place] [address] ABO/Rh Retypeon 02-12-2024 ABO/Rh Retype Interp Positive Invalid Interpretation Code [facility] Comment on above: Performed By: #### 1 [id number] #### [facility] [address] [place] [address] ABSCon 02-12-2024 ABSC Gel Interp Negative Normal [facility] Comment on above: Performed By: #### 1 [id number] #### [facility] [address] [place] [address] BLOOD BANKOrdered By: Rizwana Helm on 02-12-2024 ABO/Rh Retype Interp Positive Invalid Interpretation Code [facility] BB Subsection BLOOD BANKOrdered By: Cassie Gomez on 02-12-2024 ABO/Rh Interp Positive Invalid Interpretation Code [facility] BB Subsection ABSC Gel Interp Negative (02/12/24 12:00 PM) Normal [facility] BB Subsection BMPon 02-12-2024 Anion gap [Moles/Vol] 12 mmol/L Normal 6-16 [facility] Comment on above: Performed By: #### 2 [id number] #### [facility] [address] [place] [address] Calcium [Mass/Vol] 8.1 mg/dL Low 8.9-11.1 [facility] Comment on above: Performed By: #### 2 [id number] #### [facility] [address] [place] [address] Chloride [Moles/Vol] 102 mmol/L Normal 101-111 [facility] Comment on above: Performed By: #### 2 [id number] #### [facility] [address] [place] [address] CO2 [Moles/Vol] 26 mmol/L Normal 21-31 [facility] Comment on above: Performed By: #### 2 [id number] #### [facility] [address] [place] [address] Creatinine [Mass/Vol] 1.5 mg/dL High 0.5-1.3 [facility] Comment on above: Performed By: #### 2 [id number] #### [facility] [address] [place] [address] Glucose [Mass/Vol] 274 mg/dL High 55-199 [facility] Comment on above: Performed By: #### 2 [id number] #### [facility] [address] [place] [address] Potassium [Moles/Vol] 4.5 mmol/L Normal 3.5-5.3 [facility] Comment on above: Performed By: #### 2 [id number] #### [facility] [address] [place] [address] Sodium [Moles/Vol] 135 mmol/L Normal 135-145 [facility] Comment on above: Performed By: #### 2 [id number] #### [facility] [address] [place] [address] Urea nitrogen [Mass/Vol] 16 mg/dL Normal 5-21 [facility] Comment on above: Performed By: #### 2 [id number] #### [facility] [address] [place] [address] Urea nitrogen/Creatinine [Mass ratio] 11 No Units Normal 10-20 [facility] Comment on above: Performed By: #### 2 [id number] #### [facility] [address] [place] [address] Blood Bank ID#on 02-12-2024 BBID# [id number] Invalid Interpretation Code [facility] Comment on above: Performed By: #### 1 [id number] #### [facility] [address] [place] [address] CBC w/Indiceson 02-12-2024 Erythrocyte distribution width (RBC) [Ratio] 18.5 % High 10.9-14.2 [facility] Comment on above: Performed By: #### 2 [id number] #### [facility] [address] [place] [address] Hematocrit (Bld) [Volume fraction] 23.5 % Low 37.7-49.0 [facility] Comment on above: Performed By: #### 2 [id number] #### [facility] [address] [place] [address] Hemoglobin (Bld) [Mass/Vol] 7.2 g/dL Low 13.5-17.5 [facility] Comment on above: Performed By: #### 2 [id number] #### [facility] [address] [place] [address] Hypochromia Auto Ql (Bld) PRESENT Invalid Interpretation Code [facility] Comment on above: Performed By: #### 2 [id number] #### [facility] [address] [place] [address] MCH (RBC) [Entitic mass] 21.1 pg Low 27.0-34.0 [facility] Comment on above: Performed By: #### 2 [id number] #### [facility] [address] [place] [address] MCHC (RBC) [Mass/Vol] 30.7 g/dL Low 31.4-36.0 [facility] Comment on above: Performed By: #### 2 [id number] #### [facility] [address] [place] [address] MCV (RBC) [Entitic vol] 68.8 fL Low 80.0-100.0 [facility] Comment on above: Performed By: #### 2 [id number] #### [facility] [address] [place] [address] Microcytes Ql (Bld) PRESENT Invalid Interpretation Code [facility] Comment on above: Performed By: #### 2 [id number] #### [facility] [address] [place] [address] Platelet mean volume (Bld) [Entitic vol] 8.0 fL Normal 6.4-10.8 [facility] Comment on above: Performed By: #### 2 [id number] #### [facility] [address] [place] [address] Platelets (Bld) [#/Vol] 244.0 E9/L Normal 150.0-500. 0 [facility] Comment on above: Performed By: #### 2 [id number] #### [facility] [address] [place] [address] Polychromasia LM Ql (Bld) PRESENT Invalid Interpretation Code [facility] Comment on above: Performed By: #### 2 [id number] #### [facility] [address] [place] [address] RBC (Bld) [#/Vol] 3.4 E12/L Low 4.3-5.9 [facility] Comment on above: Performed By: #### 2 [id number] #### [facility] [address] [place] [address] RBC size Nom (Bld) NORMAL Invalid Interpretation Code [facility] Comment on above: Performed By: #### 2 [id number] #### [facility] [address] [place] [address] Target cells LM Ql (Bld) PRESENT Invalid Interpretation Code [facility] Comment on above: Performed By: #### 2 [id number] #### [facility] [address] [place] [address] WBC corrected for nucl RBC Auto (Bld) [#/Vol] 14.7 E9/L High 4.0-11.0 [facility] Comment on above: Performed By: #### 2 [id number] #### [facility] [address] [place] [address] CHEMISTRYOrdered By: SYSTEM SYSTEM on 02-12-2024 Glucose [Mass/Vol] 580 mg/dL Invalid Interpretation Code 55 - 199 mg/dL [facility] Comment on above: Result Comment: Crit ical Result Verified by Repeat Analysis Critical Result [id number] Called to and read back by: DAVID WELSH at: 02/12/2024 21:01:57 by:BAB Capillary Glucose POCon Glucose [Mass/Vol] 441 mg/dL High 55-99 [facility] Comment on above: Result Comment: Deon hathaway RN/ Performed By: #### 2 [id number] #### [facility] [address] [place] [address] Glucose [Mass/Vol] mg/dL Abnormal 55-99 [facility] Comment on above: Result Comment: Deon hathaway RN/ Performed By: #### 2 [id number] #### [facility] [address] [place] [address] Glucose [Mass/Vol] mg/dL Abnormal 55-99 [facility] Comment on above: Result Comment: Deon hathaway RN/ Performed By: #### 2 [id number] #### [facility] [address] [place] [address] Glucose [Mass/Vol] 259 mg/dL High 55-99 [facility] Comment on above: Result Comment: Repe at Test Performed By: #### 2 [id number] #### [facility] [address] [place] [address] Glucose [Mass/Vol] 205 mg/dL High 55-99 [facility] Comment on above: Result Comment: Deon hathaway RN/ Performed By: #### 2 [id number] #### [facility] [address] [place] [address] Glucoseon 02-12-2024 Glucose [Mass/Vol] 580 mg/dL Abnormal 55-199 [facility] Comment on above: Result Comment: Crit ical Result Verified by Repeat Analysis Critical Result [id number] Called to and read back by: DAVID WELSH at: 02/12/2024 21:01:57 by:BRAVO Performed By: #### 2 [id number] #### [facility] Laboratory [address] [place] [id number] HEMATOLOGYOrdered By: SYSTEM SYSTEM on 02-12-2024 Polychromasia LM Ql (Bld) PRESENT *NA* (02/12/24 4:47 PM) Invalid Interpretation Code Remisol Heme Target cells LM Ql (Bld) PRESENT *NA* (02/12/24 4:47 PM) Invalid Interpretation Code Remisol Heme Hct & Hgbon 02-12-2024 Hematocrit (Bld) [Volume fraction] 22.7 % Low 37.7-49.0 [facility] Comment on above: Performed By: #### 1 [id number] #### [facility] Laboratory [address] [place] [address] Hemoglobin (Bld) [Mass/Vol] 7.3 g/dL Low 13.5-17.5 [facility] Comment on above: Performed By: #### 1 [id number] #### [facility] Laboratory [address] [place] [address] Main OR Intraoperative Recor don 02-12-2024 Main OR Intraoperative Record Main OR Intraoperative Record IntraOp Document Type FT Summary Primary Physician: Mike Montes MD Finalized Date/Time: 02/12/24 14:48:28 Pt. Name: MATTEO CHRISTIAN, MYRA Aceves/Sex: 1965 Male Med Rec #: [id number] Physician: Mike Montes MD Financial #: [id number] Pt. Type: A Room/Bed: [place] [address] Admit/Disch: 02/12/24 11:13:26 - Institution: Case Times [...] [facility] Role Performed Anesthesiologist Surgeon - Primary Draw Machine Operator - Primary Job Service Consultant Time In 02/12/24 13:26:00 02/12/24 13:45:00 02/12/24 13:26:00 Time Out 02/12/24 14:44:00 02/12/24 14:31:00 02/12/24 14:44:00 Procedure KNEE AMPUTATION KNEE AMPUTATION KNEE AMPUTATION BELOW(Right) BELOW(Right) BELOW(Right) Comments , anesthesia bleaching supervisor Last Modified By: Sara STERN, Tyree Ruiz RN, Tyree Mancera RN 02/12/24 14:44:09 02/12/24 14:44:09 02/12/24 14:44:09 Entry 4 Entry 5 Entry 6 Case Attendee Robinson STERN, Jenise Jaquez CST, Radha Corona Role Performed Draw Machine Operator - Primary WELLHEAD PUMPER/SA Scrub - Primary Time In 02/12/24 13:26:00 02/12/24 13:26:00 02/12/24 13:26:00 Time Out 02/12/24 14:44:00 02/12/24 14:44:00 02/12/24 14:44:00 Procedure KNEE AMPUTATION KNEE AMPUTATION KNEE AMPUTATION BELOW(Right) BELOW(Right) BELOW(Right) Comments in orientation Last Modified By: Sara STERN, Tyree Ruiz RN, Tyree Mancera RN 02/12/24 14:44:09 02/12/24 14:44:09 02/12/24 14:44:09 General Comments: Lima Puckett- student education specialist, observing surgical case. 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 Postop Diagnosis I70.261-Atherosclerosis Outcomes Met? Yes of match-e-be-[place] arteries of extremities with gangrene, right leg. [...] and tissue Entry 1 Skin Integrity Intact, Dudley, Warm, & Skin Abnormality No Dry Outcomes Met? Yes Last Modified By: Tyree Ruiz RN 02/12/24 12:50:23 Post-Care Text: The patient is free from signs and symptoms of injury caused by extraneous objects Patient Positioning FT Pre-Ca (more content not included)... Normal [facility] Main OR PACU I Recordon Main OR PACU I Record Main OR PACU I Rec ord PACU Phase I Document Type FT Summary Primary Physician: Mike Montes MD Finalized Date/Time: 02/12/24 17:14:55 Pt. Name: MYRA PICKARD SR/Sex: 1965 Male Med Rec #: [id number] Physician: Mike Montes MD Financial #: [id number] Pt. Type: A Room/Bed: N309/01 Admit/Disch: 02/12/24 [...] Signed By: Lima Bolaños RN 02/12/24 17:14 [facility] Main OR Preoperative Recordo n 02-12-2024 Main OR Preoperative Record Main OR Preoperative Record PreOp Document Type FT Summary Primary Physician: Mike Montes MD Finalized Date/Time: 02/12/24 13:26:50 Pt. Name: MATTEO CHRISTIANMYRA/Sex: 1965 Male Med Rec #: [id number] Physician: Mike Montes MD Financial #: [id number] Pt. Type: A Room/Bed: [place] [address] Admit/Disch: 02/12/24 11:13:26 - Institution: Case Times [...] By: Tyree Ruiz RN 02/12/24 13:26 Normal [facility] PT & PTTon 02-12-2024 aPTT Coag (PPP) [Time] 28.0 second(s) Normal 25.1-36.5 [facility] Comment on above: Result Comment: [...] same coagulation reagent and instrumentation as [facility]. Currently there are no coagulation studies available worldwide for children to 14 days, and no normal ranges. Heparin therapeutic range (represented by Anti-Factor Xa activity of 0.2 - 0.4 U/mL) corresponds to PTT of 56.6 - 109.0 sec. Performed By: #### 1 [id number] #### [facility] [address] [place] [address] INR Coag (PPP) [Relative time] 1.12 {INR} Invalid Interpretation Code [facility] Comment on above: Result Comment: INR results are specifically intended to assess patients stabilized on long-term Anticoagulation therapy suggested INR?s ?Less Intensive Anticoagulation? 2.0 ? 3.0 Conventional Range 3.0 ? 4.5 Performed By: #### 1 [id number] #### [facility] [address] [place] [address] PT Coag (PPP) [Time] 12.6 second(s) High 9.4-12.5 [facility] Comment on above: Result Comment: [...] same coagulation reagent and instrumentation as [facility]. Currently there are no coagulation studies available worldwide for children to 14 days, and no normal ranges. Performed By: #### 1 [id number] #### [facility] [address] [place] [address] eGFRon 02-12-2024 eGFR 53 mL/min/1.73 m2 Low >=59 [facility] Comment on above: Order Comment: Order added by Discern Expert. Performed By: #### 1 [id number] #### [facility] Laboratory [address] [place] [address] Activated partial thrombopla stin time (aPTT) in platelet poor plasma by coagulation aon 02-08-2024 aPTT Coag (PPP) [Time] 25.6 s 22.3-36.[address] [facility] aPTT Coag (PPP) [Time] Activated partial thromboplastin time (aPTT) in platelet poor plasma by coagulation a 22.3-36.2 [facility] Basophils Auto (Bld) [#/Vol] on 02-08-2024 Basophils (Bld) [#/Vol] 0.1 10 3/uL 0.0-0.1 [facility] Basophils (Bld) [#/Vol] Automated basophil count 0.0-0.1 [facility] Basophils/100 WBC Auto (Bld) on 02-08-2024 Basophils/100 WBC (Bld) 0.7 % 0.2-2.0 [facility] Basophils/100 WBC (Bld) Automated basophil % 0.2-2.0 [facility] Eosinophils/100 WBC Auto (Bl d)on 02-08-2024 Eosinophils/100 WBC (Bld) 3.1 % 0.9-7.0 [facility] Eosinophils/100 WBC (Bld) Automated eosinophil % 0.9-7.0 [facility] Erythrocyte distribution wid th Auto (RBC) [Ratio]on 02-08-2024 Erythrocyte distribution width (RBC) [Ratio] 16.3 % High 11.0-15.0 [facility] Erythrocyte distribution width (RBC) [Ratio] Erythrocyte distribution width [Ratio] by Automated count High 11.0-15.0 [facility] Estimated glomerular filtrat ion rate (GFR) non- Americanon 02-08-2024 GFR/1.73 sq M.predicted among non-blacks MDRD (S/P/Bld) [Vol rate/Area] 38 mL/min/{1.73_m2} Low >=60 [facility] GFR/1.73 sq M.predicted among non-blacks MDRD (S/P/Bld) [Vol rate/Area] Estimated glomerular filtration rate (GFR) non- Low >=60 [facility] Hematocrit Auto (Bld) [Volum e fraction]on 02-08-2024 Hematocrit (Bld) [Volume fraction] 29.8 % Low 42.0-54.0 [facility] Hematocrit (Bld) [Volume fraction] Hematocrit [Volume Fraction] of Blood by Automated count Low 42.0-54.0 [facility] Hemoglobin [Mass/volume] in Bloodon 02-08-2024 Hemoglobin (Bld) [Mass/Vol] 9.1 g/dL Low 14.0-18.0 [facility] Hemoglobin (Bld) [Mass/Vol] Hemoglobin [Mass/volume] in Blood Low 14.0-18.0 [facility] INR in Platelet poor plasma by Coagulation assayon 02-08-2024 INR Coag (PPP) [Relative time] 1.02 {INR} [facility] Comment on above: DESIRED INR:2.0-3.0 CONDITIONS NOT LISTED BELOW2.5-3.5 FOR PROSTHETIC HEART VALVE REPLACEMENT2.5-3.5 RECURRENT THROMBOSIS INR Coag (PPP) [Relative time] INR in Platelet poor plasma by Coagulation assay [facility] Comment on above: DESIRED INR:2.0-3.0 CONDITIONS NOT LISTED BELOW2.5-3.5 FOR PROSTHETIC HEART VALVE REPLACEMENT2.5-3.5 RECURRENT THROMBOSIS Laboratory - Chemistry and C hemistry - challengeon 02-08-2024 Calcium [Mass/Vol] 9.4 mg/dL 8.5-10.1 [facility] Chloride [Moles/Vol] 99 mmol/L 98-107 [facility] CO2 [Moles/Vol] 28.9 mmol/L 21.0-32.0 [facility] Creatinine [Mass/Vol] 1.84 mg/dL High 0.70-1.30 [facility] GFR/1.73 sq M.predicted MDRD (S/P/Bld) [Vol rate/Area] 46 mL/min/{1.73_m2} Low >=60 [facility] Glucose [Mass/Vol] 184 mg/dL High 74-106 [facility] Potassium [Moles/Vol] 4.0 mmol/L 3.5-5.1 [facility] Sodium [Moles/Vol] 138 mmol/L 136-145 [facility] Urea nitrogen [Mass/Vol] 21.0 mg/dL High 7.0-18.0 [facility] Urea nitrogen/Creatinine [Mass ratio] 11.4 mg/mg [facility] Laboratory - Hematology and Cell countson 02-08-2024 Immature granulocytes/100 WBC (Bld) 0.4 % 0.0-0.5 [facility] Leukocytes [#/volume] correc jorge for nucleated erythrocytes in Blood by Automated counon 02-08-2024 WBC corrected for nucl RBC Auto (Bld) [#/Vol] 10.1 10 3/uL 4.0-11.0 [facility] WBC corrected for nucl RBC Auto (Bld) [#/Vol] Leukocytes [#/volume] corrected for nucleated erythrocytes in Blood by Automated coun 4.0-11.0 [facility] Lymphocytes Auto (Bld) [#/Vo l]on 02-08-2024 Lymphocytes (Bld) [#/Vol] 1.6 10 3/uL 1.2-3.8 [facility] Lymphocytes (Bld) [#/Vol] Lymphocytes [#/volume] in Blood by Automated count 1.2-3.8 [facility] Lymphocytes/100 WBC Auto (Bl d)on 02-08-2024 Lymphocytes/100 WBC (Bld) 15.6 % Low 20.5-60.0 [facility] Lymphocytes/100 WBC (Bld) Lymphocytes/100 leukocytes in Blood by Automated count Low 20.5-60.0 [facility] MCH Auto (RBC) [Entitic mass ]on 02-08-2024 MCH (RBC) [Entitic mass] 21.9 pg Low 25.9-34.0 [facility] MCH (RBC) [Entitic mass] MCH [Entitic mass] by Automated count Low 25.9-34.0 [facility] MCHC Auto (RBC) [Mass/Vol]on 02-08-2024 MCHC (RBC) [Mass/Vol] 30.5 g/dL 29.9-35.2 [facility] MCHC (RBC) [Mass/Vol] MCHC [Mass/volume] by Automated count 29.9-35.2 [facility] MCV Auto (RBC) [Entitic vol] on 02-08-2024 MCV (RBC) [Entitic vol] 71.8 fL Low 80.0-94.0 [facility] MCV (RBC) [Entitic vol] MCV [Entitic volume] by Automated count Low 80.0-94.0 [facility] Monocytes Auto (Bld) [#/Vol] on 02-08-2024 Monocytes (Bld) [#/Vol] 0.8 10 3/uL 0.3-0.8 [facility] Monocytes (Bld) [#/Vol] Automated blood monocyte count 0.3-0.8 [facility] Monocytes/100 WBC Auto (Bld) on 02-08-2024 Monocytes/100 WBC (Bld) 7.5 % 1.7-12.0 [facility] Monocytes/100 WBC (Bld) Automated monocyte % 1.7-12.0 [facility] Neutrophils Auto (Bld) [#/Vo l]on 02-08-2024 Neutrophils (Bld) [#/Vol] 7.4 10 3/uL High 1.4-6.5 [facility] Neutrophils (Bld) [#/Vol] Neutrophils [#/volume] in Blood by Automated count High 1.4-6.5 [facility] Neutrophils/100 WBC Auto (Bl d)on 02-08-2024 Neutrophils/100 WBC (Bld) 72.7 % 43.0-75.0 [facility] Neutrophils/100 WBC (Bld) Automated neutrophil % 43.0-75.0 [facility] No Panel Informationon 02-07 Eosinophils # (Auto) 0.3 10 3/uL 0.0-0.7 [facility] Immature Granulocyte # (Auto) 0.04 10 3/uL High 0.00-0.03 [facility] 11.4 [facility] 0.3 10 3/uL 0.0-0.7 [facility] 21.0 mg/dL High 7.0-18.0 [facility] 9.4 mg/dL 8.5-10.1 [facility] 99 mmol/L 98-107 [facility] 28.9 mmol/L 21.0-32.0 [facility] 0.04 10 3/uL High 0.00-0.03 [facility] 1.84 mg/dL High 0.70-1.30 [facility] 0.4 % 0.0-0.5 [facility] 46 Low >=60 [facility] 184 mg/dL High 74-106 [facility] 4.0 mmol/L 3.5-5.1 [facility] 138 mmol/L 136-145 [facility] Platelet mean volume Auto (B ld) [Entitic vol]on 02-08-2024 Platelet mean volume (Bld) [Entitic vol] 10.7 fL 9.5-13.5 [facility] Platelet mean volume (Bld) [Entitic vol] Platelet mean volume [Entitic volume] in Blood by Automated count .-. [facility] Platelets Auto (Bld) [#/Vol] on 02-08-2024 Platelets (Bld) [#/Vol] 322 10 3/uL 150-450 [facility] Platelets (Bld) [#/Vol] Platelets [#/volume] in Blood by Automated count 150-450 [facility] Prothrombin time (PT)on PT Coag (PPP) [Time] 10.8 s 9.0-11.6 [facility] PT Coag (PPP) [Time] Prothrombin time (PT) 9.0- 11.6 [facility] RBC Auto (Bld) [#/Vol]on RBC (Bld) [#/Vol] 4.15 10 6/uL Low 4.70-6.10 [facility] RBC (Bld) [#/Vol] Erythrocytes [#/volu me] in Blood by Automated count Low 4.70-6.10 [facility] Serum or plasma anion gap de terminationon 02-08-2024 Anion gap [Moles/Vol] 14.1 [facility] Anion gap [Moles/Vol] Serum or plasma an ion gap determination [facility] ALL CBC WITH AUTO DIFFon BASOPHILS ABSOLUTE AUTO 0.1 [facility] Basophils/100 WBC (Bld) 1.2 % 0.2 - 2.0 % [facility] Eosinophils/100 WBC (Bld) 2.9 % 0.9 - 7.0 % [facility] Erythrocyte distribution width (RBC) [Ratio] 16.4 % High 11.0 - 15.0 % [facility] Hematocrit (Bld) [Volume fraction] 28.7 % Low 42.0 - 54.0 % [facility] Hemoglobin (Bld) [Mass/Vol] 8.7 g/dL Low 14.0 - 18.0 g/dL [facility] IMMATURE GRANULOCYTES ABS AUTO 0.06 High [facility] Immature granulocytes/100 WBC (Bld) 0.7 % High 0.0 - 0.5 % [facility] Interpretation and review of laboratory results Abnormal [facility] LYMPHOCYTES ABSOLUTE AUTO 1.8 [facility] Lymphocytes/100 WBC (Bld) 21.5 % 20.5 - 60.0 % [facility] MCH (RBC) [Entitic mass] 22.3 pg Low 25.9 - 34.0 pg [facility] MCHC (RBC) [Mass/Vol] 30.3 g/dL 29.9 - 35.2 g/dL [facility] MCV (RBC) [Entitic vol] 73.6 fL Low 80.0 - 94.0 fL [facility] MONOCYTES ABSOLUTE AUTO 0.7 [facility] Monocytes/100 WBC (Bld) 8.7 % 1.7 - 12.0 % [facility] NEUTROPHILS ABSOLUTE AUTO 5.4 [facility] Neutrophils/100 WBC (Bld) 65.0 % 43.0 - 75.0 % [facility] Platelet mean volume (Bld) [Entitic vol] 10.4 fL 9.5 - 13.5 [facility]L [facility] TB PLT 397 [facility] RBC 3.90 Low [facility] WBC 8.3 [facility] Activated partial thrombopla stin time (aPTT) in platelet poor plasma by coagulation aon 02-01-2024 aPTT Coag (PPP) [Time] 25.3 s 22.3-36.[address] [facility] aPTT Coag (PPP) [Time] Activated partial thromboplastin time (aPTT) in platelet poor plasma by coagulation a 22.3-36.2 [facility] Basophils Auto (Bld) [#/Vol] on 02-01-2024 Basophils (Bld) [#/Vol] 0.1 10 3/uL 0.0-0.1 [facility] Basophils (Bld) [#/Vol] Automated basophil count 0.0-0.1 [facility] Basophils/100 WBC Auto (Bld) on 02-01-2024 Basophils/100 WBC (Bld) 1.2 % 0.2-2.0 [facility] Basophils/100 WBC (Bld) Automated basophil % 0.2-2.0 [facility] Eosinophils/100 WBC Auto (Bl d)on 02-01-2024 Eosinophils/100 WBC (Bld) 2.9 % 0.9-7.0 [facility] Eosinophils/100 WBC (Bld) Automated eosinophil % 0.9-7.0 [facility] Erythrocyte distribution wid th Auto (RBC) [Ratio]on 02-01-2024 Erythrocyte distribution width (RBC) [Ratio] 16.4 % High 11.0-15.0 [facility] Erythrocyte distribution width (RBC) [Ratio] Erythrocyte distribution width [Ratio] by Automated count High 11.0-15.0 [facility] Estimated glomerular filtrat ion rate (GFR) non- Americanon 02-01-2024 GFR/1.73 sq M.predicted among non-blacks MDRD (S/P/Bld) [Vol rate/Area] 34 mL/min/{1.73_m2} Low >=60 [facility] GFR/1.73 sq M.predicted among non-blacks MDRD (S/P/Bld) [Vol rate/Area] Estimated glomerular filtration rate (GFR) non- Low >=60 [facility] Hematocrit Auto (Bld) [Volum e fraction]on 02-01-2024 Hematocrit (Bld) [Volume fraction] 28.7 % Low 42.0-54.0 [facility] Hematocrit (Bld) [Volume fraction] Hematocrit [Volume Fraction] of Blood by Automated count Low 42.0-54.0 [facility] Hemoglobin [Mass/volume] in Bloodon 02-01-2024 Hemoglobin (Bld) [Mass/Vol] 8.7 g/dL Low 14.0-18.0 [facility] Hemoglobin (Bld) [Mass/Vol] Hemoglobin [Mass/volume] in Blood Low 14.0-18.0 [facility] INR in Platelet poor plasma by Coagulation assayon 02-01-2024 INR Coag (PPP) [Relative time] 1.02 {INR} [facility] Comment on above: DESIRED INR:2.0-3.0 CONDITIONS NOT LISTED BELOW2.5-3.5 FOR PROSTHETIC HEART VALVE REPLACEMENT2.5-3.5 RECURRENT THROMBOSIS INR Coag (PPP) [Relative time] INR in Platelet poor plasma by Coagulation assay [facility] Comment on above: DESIRED INR:2.0-3.0 CONDITIONS NOT LISTED BELOW2.5-3.5 FOR PROSTHETIC HEART VALVE REPLACEMENT2.5-3.5 RECURRENT THROMBOSIS Laboratory - Chemistry and C hemistry - challengeon 02-01-2024 Calcium [Mass/Vol] 9.0 mg/dL 8.5-10.1 [facility] Chloride [Moles/Vol] 100 mmol/L 98-107 [facility] CO2 [Moles/Vol] 26.7 mmol/L 21.0-32.0 [facility] Creatinine [Mass/Vol] 2.03 mg/dL High 0.70-1.30 [facility] GFR/1.73 sq M.predicted MDRD (S/P/Bld) [Vol rate/Area] 41 mL/min/{1.73_m2} Low >=60 [facility] Glucose [Mass/Vol] 268 mg/dL High 74-106 [facility] Potassium [Moles/Vol] 4.3 mmol/L 3.5-5.1 [facility] Sodium [Moles/Vol] 137 mmol/L 136-145 [facility] Urea nitrogen [Mass/Vol] 25.0 mg/dL High 7.0-18.0 [facility] Urea nitrogen/Creatinine [Mass ratio] 12.3 mg/mg [facility] Laboratory - Hematology and Cell countson 02-01-2024 Immature granulocytes/100 WBC (Bld) 0.7 % High 0.0-0.5 [facility] Leukocytes [#/volume] correc jorge for nucleated erythrocytes in Blood by Automated counon 02-01-2024 WBC corrected for nucl RBC Auto (Bld) [#/Vol] 8.3 10 3/uL 4.0-11.0 [facility] WBC corrected for nucl RBC Auto (Bld) [#/Vol] Leukocytes [#/volume] corrected for nucleated erythrocytes in Blood by Automated coun 4.0-11.0 [facility] Lymphocytes Auto (Bld) [#/Vo l]on 02-01-2024 Lymphocytes (Bld) [#/Vol] 1.8 10 3/uL 1.2-3.8 [facility] Lymphocytes (Bld) [#/Vol] Lymphocytes [#/volume] in Blood by Automated count 1.2-3.8 [facility] Lymphocytes/100 WBC Auto (Bl d)on 02-01-2024 Lymphocytes/100 WBC (Bld) 21.5 % 20.5-60.0 [facility] Lymphocytes/100 WBC (Bld) Lymphocytes/100 leukocytes in Blood by Automated count 20.5-60.0 [facility] MCH Auto (RBC) [Entitic mass ]on 02-01-2024 MCH (RBC) [Entitic mass] 22.3 pg Low 25.9-34.0 [facility] MCH (RBC) [Entitic mass] MCH [Entitic mass] by Automated count Low 25.9-34.0 [facility] MCHC Auto (RBC) [Mass/Vol]on 02-01-2024 MCHC (RBC) [Mass/Vol] 30.3 g/dL 29.9-35.2 [facility] MCHC (RBC) [Mass/Vol] MCHC [Mass/volume] by Automated count 29.9-35.2 [facility] MCV Auto (RBC) [Entitic vol] on 02-01-2024 MCV (RBC) [Entitic vol] 73.6 fL Low 80.0-94.0 [facility] MCV (RBC) [Entitic vol] MCV [Entitic volume] by Automated count Low 80.0-94.0 [facility] Monocytes Auto (Bld) [#/Vol] on 02-01-2024 Monocytes (Bld) [#/Vol] 0.7 10 3/uL 0.3-0.8 [facility] Monocytes (Bld) [#/Vol] Automated blood monocyte count 0.3-0.8 [facility] Monocytes/100 WBC Auto (Bld) on 02-01-2024 Monocytes/100 WBC (Bld) 8.7 % 1.7-12.0 [facility] Monocytes/100 WBC (Bld) Automated monocyte % 1.7-12.0 [facility] Neutrophils Auto (Bld) [#/Vo l]on 02-01-2024 Neutrophils (Bld) [#/Vol] 5.4 10 3/uL 1.4-6.5 [facility] Neutrophils (Bld) [#/Vol] Neutrophils [#/volume] in Blood by Automated count 1.4-6.5 [facility] Neutrophils/100 WBC Auto (Bl d)on 02-01-2024 Neutrophils/100 WBC (Bld) 65.0 % 43.0-75.0 [facility] Neutrophils/100 WBC (Bld) Automated neutrophil % 43.0-75.0 [facility] No Panel Informationon 01-31 Eosinophils # (Auto) 0.2 10 3/uL 0.0-0.7 [facility] Immature Granulocyte # (Auto) 0.06 10 3/uL High 0.00-0.03 [facility] 12.3 [facility] 25.0 mg/dL High 7.0-18.0 [facility] 0.2 10 3/uL 0.0-0.7 [facility] 9.0 mg/dL 8.5-10.1 [facility] 100 mmol/L 98-107 [facility] 26.7 mmol/L 21.0-32.0 [facility] 2.03 mg/dL High 0.70-1.30 [facility] 0.06 10 3/uL High 0.00-0.03 [facility] 41 Low >=60 [facility] 0.7 % High 0.0-0.5 [facility] 268 mg/dL High 74-106 [facility] 4.3 mmol/L 3.5-5.1 [facility] 137 mmol/L 136-145 [facility] Platelet mean volume Auto (B ld) [Entitic vol]on 02-01-2024 Platelet mean volume (Bld) [Entitic vol] 10.4 fL 9.5-13.5 [facility] Platelet mean volume (Bld) [Entitic vol] Platelet mean volume [Entitic volume] in Blood by Automated count 9.5-13.5 [facility] Platelets Auto (Bld) [#/Vol] on 02-01-2024 Platelets (Bld) [#/Vol] 397 10 3/uL 150-450 [facility] Platelets (Bld) [#/Vol] Platelets [#/volume] in Blood by Automated count 150-450 [facility] Prothrombin time (PT)on 01-04 PT Coag (PPP) [Time] 10.8 s 9.0-11.6 [facility] PT Coag (PPP) [Time] Prothrombin time (PT) 9.0- 11.6 [facility] RBC Auto (Bld) [#/Vol]on RBC (Bld) [#/Vol] 3.90 10 6/uL Low 4.70-6.10 [facility] RBC (Bld) [#/Vol] Erythrocytes [#/volu me] in Blood by Automated count Low 4.70-6.10 [facility] Serum or plasma anion gap de terminationon 02-01-2024 Anion gap [Moles/Vol] 14.6 mmol/L [facility] Anion gap [Moles/Vol] Serum or plasma an ion gap determination [facility] Provider Letteron 01-29-2024 Provider Letter Provider Letter January 29, 2024 MYRA PICKARD [address] [place] [address] [address] [place] [address] : 1965 Dear Myra, We have been [...] [facility] [address], [place] [address] [facility] TRANSTHORACIC ECHO (TTE) COM Anaya 01-17-2024 TRANSTHORACIC ECHO (TTE) COMPLETE [facility] [address] [place] [address], [address], [place] [address] TRANSTHORACIC ECHOCARDIOGRAM REPORT Patient Name: MYRA PICKARD Reading Physician: [id number] Bernard De La Cruz MD Study Date: 01/17/2024 Ordering Provider: [id number] BERNARD DE LA CRUZ MRN/PID: [id number] Fellow: Nurse: Date of /Age: 2 1965 / 58 years [employer] Product Manager: Ольга Mars RDCS, RVT Gender: M Additional Staff: Height: 182.88 cm Admit Date: Weight: 95.71 kg Admission Status: BSA / BMI: 2.18 m2 / 28.62 kg/m2 Department Location: [facility] Blood Pressure: 102 /58 mmHg Study Type: TRANSTHORACIC ECHO (TTE) COMPLETE Diagnosis/ICD: Shortness of breath-R06.02 Indication: CAD, PTCA, COPD, Diabetes, Hyperlipidemia, Former Smoker, Hypotension, Peripheral Vascular Disease, 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 CPT Codes: Echo Complete w Full [id number] Study Detail: The following Echo studies were [...] AoV Mean P.0 mmHg (1.7-11.5mmHg) LVOT Max Fady: 1.03 m/s (<=1.1m/s) AoV VTI: 24.50 cm (18-25cm) LVOT VTI: 16.50 cm LVOT Diameter: 2.40 cm (1.8-2.4cm) AoV Area, VTI: 3.05 cm2 (2.5-5.5cm2) AoV Area,Vmax: 2.81 cm2 (2.5-4.5cm2) AoV Dimensionless Index: 0.67 PULMONIC VALVE: Normal Ranges: PV Max Fady: 0.9 m/s (0.6-0.9m/s) PV Max P.3 mmHg [id number] Bernard De La Cruz MD Electronically signed on 01/18/2024 at 11:32:19 AM Final [facility] Operative Reporton 4 Operative Report Operative Report [...] and then obtained a micro-access upsized to 5-[place] sheath, placed the catheter in the abdominal [...] well. Mike Montes M.D. ca Dictated: 01/08/2024 [id number] Transcribed: 01/08/2024 [facility] Comment on above: Result Comment: Elec tronically Signed By: Mike Montes MD\.br\Date and Time Signed: 01/11/24 18:26 EDT Coding Queryon 01-10-2024 Coding Query Coding Query From: Viviane Azul To: Mike Montes MD; Cc: Monique Saldivar; Sent: 01/10/2024 14:42:56 EDT ! Subject: Coding Query (Template) CODING COMMUNICATION: _XX_ Procedure information missing: Please document the Pre and Post-Op Diagnosis. Please feel free to contact the coding department with any questions. Thank you! Marybeth Marquise [facility] BMPon 01-08-2024 Anion gap [Moles/Vol] 13 mmol/L Normal 6-16 [facility] Comment on above: Performed By: #### 2 [id number] #### [facility] [address] [place] [address] Calcium [Mass/Vol] 9.1 mg/dL Normal 8.9-11.1 [facility] Comment on above: Performed By: #### 2 [id number] #### [facility] [address] [place] [address] Chloride [Moles/Vol] 103 mmol/L Normal 101-111 [facility] Comment on above: Performed By: #### 2 [id number] #### [facility] [address] [place] [address] CO2 [Moles/Vol] 25 mmol/L Normal 21-31 [facility] Comment on above: Performed By: #### 2 [id number] #### [facility] [address] [place] [address] Creatinine [Mass/Vol] 1.9 mg/dL High 0.5-1.3 [facility] Comment on above: Performed By: #### 2 [id number] #### [facility] [address] [place] [address] Glucose [Mass/Vol] 138 mg/dL Normal 55-199 [facility] Comment on above: Performed By: #### 2 [id number] #### [facility] [address] [place] [address] Potassium [Moles/Vol] 4.2 mmol/L Normal 3.5-5.3 [facility] Comment on above: Performed By: #### 2 [id number] #### [facility] [address] [place] [address] Sodium [Moles/Vol] 137 mmol/L Normal 135-145 [facility] Comment on above: Performed By: #### 2 [id number] #### [facility] [address] [place] [address] Urea nitrogen [Mass/Vol] 26 mg/dL High 5-21 [facility] Comment on above: Performed By: #### 2 [id number] #### [facility] [address] [place] [address] Urea nitrogen/Creatinine [Mass ratio] 14 No Units Normal 10-20 [facility] Comment on above: Performed By: #### 2 [id number] #### [facility] [address] [place] [address] CBC w/ Auto Diffon 4 Basophils/100 WBC (Bld) 1.2 % Normal 0.0-2.0 [facility] Comment on above: Performed By: #### 2 [id number] #### [facility] [address] [place] [address] Basophils/Leukocytes Auto (Bld) [Pure # fraction] 0.1 E9/L Normal 0.0-0.2 [facility] Comment on above: Performed By: #### 2 [id number] #### [facility] [address] [place] [address] Eosinophils (Bld) [#/Vol] 0.4 E9/L Normal 0.0-0.5 [facility] Comment on above: Performed By: #### 2 [id number] #### [facility] [address] [place] [address] Eosinophils/100 WBC (Bld) 4.3 % Normal 0.0-8.0 [facility] Comment on above: Performed By: #### 2 [id number] #### [facility] [address] [place] [address] Erythrocyte distribution width (RBC) [Ratio] 17.3 % High 10.9-14.2 [facility] Comment on above: Performed By: #### 2 [id number] #### [facility] [address] [place] [address] Hematocrit (Bld) [Volume fraction] 26.8 % Low 37.7-49.0 [facility] Comment on above: Performed By: #### 2 [id number] #### [facility] [address] [place] [address] Hemoglobin (Bld) [Mass/Vol] 8.8 g/dL Low 13.5-17.5 [facility] Comment on above: Performed By: #### 2 [id number] #### [facility] [address] [place] [address] Hypochromia Auto Ql (Bld) PRESENT Invalid Interpretation Code [facility] Comment on above: Performed By: #### 2 [id number] #### [facility] [address] [place] [address] Lymphocytes (Bld) [#/Vol] 2.3 E9/L Normal 1.0-4.0 [facility] Comment on above: Performed By: #### 2 [id number] #### [facility] [address] [place] [address] Lymphocytes/100 WBC (Bld) 22.6 % Normal 14.0-50.0 [facility] Comment on above: Performed By: #### 2 [id number] #### [facility] [address] [place] [address] MCH (RBC) [Entitic mass] 24.5 pg Low 27.0-34.0 [facility] Comment on above: Performed By: #### 2 [id number] #### [facility] [address] [place] [address] MCHC (RBC) [Mass/Vol] 33.0 g/dL Normal 31.4-36.0 [facility] Comment on above: Performed By: #### 2 [id number] #### [facility] [address] [place] [address] MCV (RBC) [Entitic vol] 74.2 fL Low 80.0-100.0 [facility] Comment on above: Performed By: #### 2 [id number] #### [facility] [address] [place] [address] Microcytes Ql (Bld) PRESENT Invalid Interpretation Code [facility] Comment on above: Performed By: #### 2 [id number] #### [facility] [address] [place] [address] Monocytes (Bld) [#/Vol] 0.9 E9/L Normal 0.2-1.0 [facility] Comment on above: Performed By: #### 2 [id number] #### [facility] [address] [place] [address] Neutrophils (Bld) [#/Vol] 6.6 E9/L Normal 2.0-7.5 [facility] Comment on above: Performed By: #### 2 [id number] #### [facility] [address] [place] [address] Neutrophils/100 WBC (Bld) 63.4 % Normal 36.0-75.0 [facility] Comment on above: Performed By: #### 2 [id number] #### [facility] [address] [place] [address] Platelet 377.0 E9/L Normal 150.0-500. 0 [facility] Comment on above: Performed By: #### 2 [id number] #### [facility] [address] [place] [address] Platelet mean volume (Bld) [Entitic vol] 8.7 fL Normal 6.4-10.8 [facility] Comment on above: Performed By: #### 2 [id number] #### [facility] [address] [place] [address] RBC (Bld) [#/Vol] 3.6 E12/L Low 4.3-5.9 [facility] Comment on above: Performed By: #### 2 [id number] #### [facility] [address] [place] [address] RBC size Nom (Bld) SEE MORPHOLOGY Invalid Interpretation Code [facility] Comment on above: Performed By: #### 2 [id number] #### [facility] [address] [place] [address] WBC corrected for nucl RBC Auto (Bld) [#/Vol] 10.4 E9/L Normal 4.0-11.0 [facility] Comment on above: Performed By: #### 2 [id number] #### [facility] [address] [place] [address] Inpatient Clinical Summaryon 01-08-2024 Inpatient Clinical Summary Inpatient Clinical Summary [address] [address] Clinical Summary Person Information: Name: MYRA PICKARD SR Age: 58 Years : 1965 Sex: Male PCP: TERESA LYNCH DO Marital Status: Race: White Ethnicity: Non- or Language: Afghan Visit Id: Visit Reason: I70.261 Speciality: Acuity: Enc Type: Ambulatory/Same Day Surgery Med Service: Surgery Arrival: 01/08/2024 11:49:03 Discharge: Dispo Type: Address: [address] [place] [id number] Provider Notes: Diagnosis: Problems Active Gross hematuria [...] Follow up: With: Address: When: Mike Montes [address] [place], [place] [id number] Business (1) Comments: Call for followup appointment Type Location Start [place] Office Visit [facility] [place] 02/12/2024 1:15 PM 02/12/2024 1:30 PM Confirmed Patient Education Information: CV - Cardiovascular PCI Discharge Instructions (CUSTOM) Normal [facility] Inpatient Patient Summaryon 01-08-2024 Inpatient Patient Summary Inpatient Patient Summary [address] [address] Patient Discharge Instructions PERSON INFORMATION Name: MATTEO CHRISTIAN MYRA Daniel Date of : 1965 Current Date: [...] Follow up: With: Address: When: Mike Montes [address] [place] [address] [facility] (1) Comments: Call for followup appointment In the event that this physician does not participate in your insurance network, please consult with your insurance company to find a nearby participating provider. Type Location Start [facility] [place] [facility] Office Visit [facility] [place] 02/12/2024 1:15 PM 02/12/2024 1:30 PM Confirmed Comment: IMATTEO SR, SCOTT A, have received [...] Capsules By (more content not included)... Normal [facility] Interdisciplinary Note - Ayo shannon 01-08-2024 Interdisciplinary [...] covered with cast padding and KATHERYN. Normal [facility] eGFRon 01-08-2024 eGFR 40 mL/min/1.73 m2 Low >=59 [facility] Comment on above: Order Comment: Order added by Discern Expert. Performed By: #### 1 [id number] #### [facility] [address] [place] [address] Cholesterol in LDL Calc [Mas s/Vol]on 12-31-2023 Cholesterol in LDL [Mass/Vol] 47.0 mg/dL [facility] Comment on above: <100 mg/dl [id number] 0-129 mg/dl NEAR OR ABOVE [id number] mg/dl BORDERLINE [id number] mg/dl HIGH>190 mg/dl VERY HIGH Cholesterol in VLDL Calc [Ma ss/Vol]on 12-31-2023 Cholesterol in VLDL [Mass/Vol] 54.0 mg/dL [facility] Erythrocyte distribution wid th Auto (RBC) [Ratio]on 12-31-2023 Erythrocyte distribution width (RBC) [Ratio] 15.9 % High 11.0-15.0 [facility] Estimated glomerular filtrat ion rate (GFR) non- Americanon 12-31-2023 GFR/1.73 sq M.predicted among non-blacks MDRD (S/P/Bld) [Vol rate/Area] 31 mL/min/{1.73_m2} Low >=60 [facility] Globulin Calc (S) [Mass/Vol] on 12-31-2023 Globulin (S) [Mass/Vol] 3.9 g/dL [facility] Glucose mean value [Mass/vol ume] in Blood Estimated from glycated hemoglobinon 12-31-2023 Average glucose Estimated from glycated hemoglobin (Bld) [Mass/Vol] 163 mg/dL [facility] Hematocrit Auto (Bld) [Volum e fraction]on 12-31-2023 Hematocrit (Bld) [Volume fraction] 25.6 % Low 42.0-54.0 [facility] Hemoglobin [Mass/volume] in Bloodon 12-31-2023 Hemoglobin (Bld) [Mass/Vol] 8.0 g/dL Low 14.0-18.0 [facility] Iron binding capacity [Mass/ volume] in Serum or Plasmaon 12-31-2023 Iron binding capacity [Mass/Vol] 286.0 ug/dL 250.0-450. 0 [facility] Iron saturation [Mass Fracti on] in Serum or Plasmaon 12-31-2023 Iron saturation [Mass fraction] 2.8 % [facility] - Chemistry and C hemistry - challengeon 12-31-2023 Cobalamin (Vitamin B12) [Mass/Vol] 156.0 pg/mL Low 193.0-986. 0 [facility] Ferritin [Mass/Vol] 16.0 ng/mL Low 26.0-388.0 [facility] Iron [Mass/Vol] 8.0 ug/dL Low 65.0-175.0 [facility] Transferrin [Mass/Vol] 241 mg/dL 177-[address] [facility] Comment on above: Performed at: [address] [id number] Director: Uriel Borrero PhD, Phone: [phone] Albumin [Mass/Vol] 2.4 g/dL Low 3.4-5.0 [facility] ALP [Catalytic activity/Vol] 172 U/L High 46-116 [facility] ALT [Catalytic activity/Vol] 21 U/L 16-63 [facility] AST [Catalytic activity/Vol] 8 U/L Low 15-37 [facility] Bilirubin [Mass/Vol] 0.2 mg/dL 0.2-1.0 [facility] Calcium [Mass/Vol] 8.4 mg/dL Low 8.5-10.1 [facility] Chloride [Moles/Vol] 98 mmol/L 98-107 [facility] Cholesterol [Mass/Vol] 127 mg/dL <=[address] [facility] Cholesterol in HDL [Mass/Vol] 26 mg/dL Low 40-60 [facility] Comment on above: > or =60 mg/dl - LOW CARDIOVASCULAR RISK<40 mg/dl - HIGH CARDIOVASCULAR RISK CO2 [Moles/Vol] 30.5 mmol/L 21.0-32.0 [facility] Creatinine [Mass/Vol] 2.22 mg/dL High 0.70-1.30 [facility] GFR/1.73 sq M.predicted MDRD (S/P/Bld) [Vol rate/Area] 37 mL/min/{1.73_m2} Low >=60 [facility] Glucose [Mass/Vol] 348 mg/dL High 74-106 [facility] Potassium [Moles/Vol] 3.9 mmol/L 3.5-5.1 [facility] Protein [Mass/Vol] 6.3 g/dL Low 6.4-8.2 [facility] Sodium [Moles/Vol] 137 mmol/L 136-145 [facility] Triglyceride [Mass/Vol] 270 mg/dL High <=150 [facility] TSH Qn 3.218 m[IU]/L 0.358-3.74 0 [facility] Urea nitrogen [Mass/Vol] 21.0 mg/dL High 7.0-18.0 [facility] Urea nitrogen/Creatinine [Mass ratio] 9.5 mg/mg [facility] Laboratory - Hematology and Cell countson 12-31-2023 HbA1c (Bld) [Mass fraction] 7.3 % High 4.5-6.2 [facility] Comment on above: ADA RECOMMENDED LIMI T 4.0 - 6.0ADA THERAPEUTIC TARGET < 7.0ACTION SUGGESTED> 7.0 Leukocytes [#/volume] correc jorge for nucleated erythrocytes in Blood by Automated counon 12-31-2023 WBC corrected for nucl RBC Auto (Bld) [#/Vol] 8.1 10 3/uL 4.0-11.0 [facility] MCH Auto (RBC) [Entitic mass ]on 12-31-2023 MCH (RBC) [Entitic mass] 24.3 pg Low 25.9-34.0 [facility] MCHC Auto (RBC) [Mass/Vol]on 12-31-2023 MCHC (RBC) [Mass/Vol] 31.3 g/dL 29.9-35.2 [facility] MCV Auto (RBC) [Entitic vol] on 12-31-2023 MCV (RBC) [Entitic vol] 77.8 fL Low 80.0-94.0 [facility] No Panel Informationon 12-30 Folate 5.6 ng/mL >3.0 [facility] Comment on above: A serum folate vivian ntration of less than 3.1 ng/mL isconsidered to represent clinical deficiency.Performed at: [facility] [id number] Director: Uriel Borrero PhD, Phone: [phone] 5.6 ng/mL >3.0 [facility] 241 mg/dL 177-329 [facility] 156.0 pg/mL Low 193.0-986. 0 [facility] 16.0 ng/mL Low 26.0-388.0 [facility] 8.0 ug/dL Low 65.0-175.0 [facility] Troponin I High Sensitivity 5.8 pg/mL 4.0-76.1 [facility] Comment on [...] DIAGNOSTIC AND CLINICAL INFORMATION. 5.8 pg/mL 4.0-76.1 [facility] 3.218 u[iU]/mL 0.358-3.74 0 [facility] 7.3 % High 4.5-6.2 [facility] 127 mg/dL <=200 [facility] 26 mg/dL Low 40-60 [facility] 2.4 g/dL Low 3.4-5.0 [facility] 172 U/L High 46-116 [facility] 270 mg/dL High <=150 [facility] 21 U/L 16-63 [facility] 8 U/L Low 15-37 [facility] 9.5 [facility] 21.0 mg/dL High 7.0-18.0 [facility] 8.4 mg/dL Low 8.5-10.1 [facility] 98 mmol/L 98-107 [facility] 30.5 mmol/L 21.0-32.0 [facility] 2.22 mg/dL High 0.70-1.30 [facility] 37 Low >=60 [facility] 348 mg/dL High 74-106 [facility] 3.9 mmol/L 3.5-5.1 [facility] 137 mmol/L 136-145 [facility] 0.2 mg/dL 0.2-1.0 [facility] 6.3 g/dL Low 6.4-8.2 [facility] Platelet mean volume Auto (B ld) [Entitic vol]on 12-31-2023 Platelet mean volume (Bld) [Entitic vol] 10.4 fL 9.5-13.5 [facility] Platelets Auto (Bld) [#/Vol] on 12-31-2023 Platelets (Bld) [#/Vol] 297 10 3/uL 150-450 [facility] RBC Auto (Bld) [#/Vol]on RBC (Bld) [#/Vol] 3.29 10 6/uL Low 4.70-6.10 [facility] Serum or plasma albumin/glob ulin mass ratioon 12-31-2023 Albumin/Globulin [Mass ratio] 0.6 {ratio} [facility] Serum or plasma anion gap de terminationon 12-31-2023 Anion gap [Moles/Vol] 12.4 mmol/L Fi [facility] Serum or plasma total choles terol/high density lipoprotein (HDL) cholesterol mass stone 12-31-2023 Cholesterol.total/Chol esterol in HDL [Mass ratio] 4.9 {ratio} [facility] Comment on above: 3.3 - 4.4 LOW RISK4. 4 - 7.1 AVERAGE RISK7.1 - 11.0 MODERATE RISK>11.0 HIGH RISK Basophils Auto (Bld) [#/Vol] on 12-30-2023 Basophils (Bld) [#/Vol] 0.1 10 3/uL 0.0-0.1 [facility] Basophils/100 WBC Auto (Bld) on 12-30-2023 Basophils/100 WBC (Bld) 0.7 % 0.2-2.0 [facility] Eosinophils/100 WBC Auto (Bl d)on 12-30-2023 Eosinophils/100 WBC (Bld) 2.3 % 0.9-7.0 [facility] Erythrocyte distribution wid th Auto (RBC) [Ratio]on 12-30-2023 Erythrocyte distribution width (RBC) [Ratio] 15.9 % High 11.0-15.0 [facility] Estimated glomerular filtrat ion rate (GFR) non- Americanon 12-30-2023 GFR/1.73 sq M.predicted among non-blacks MDRD (S/P/Bld) [Vol rate/Area] 30 mL/min/{1.73_m2} Low >=60 [facility] Hematocrit Auto (Bld) [Volum e fraction]on 12-30-2023 Hematocrit (Bld) [Volume fraction] 27.1 % Low 42.0-54.0 [facility] Hemoglobin [Mass/volume] in Bloodon 12-30-2023 Hemoglobin (Bld) [Mass/Vol] 8.5 g/dL Low 14.0-18.0 [facility] - Chemistry and C hemistry - challengeon 12-30-2023 Calcium [Mass/Vol] 9.2 mg/dL 8.5-10.1 [facility] Chloride [Moles/Vol] 95 mmol/L Low 98-107 [facility] CO2 [Moles/Vol] 27.2 mmol/L 21.0-32.0 [facility] Creatinine [Mass/Vol] 2.23 mg/dL High 0.70-1.30 [facility] GFR/1.73 sq M.predicted MDRD (S/P/Bld) [Vol rate/Area] 37 mL/min/{1.73_m2} Low >=60 [facility] Glucose [Mass/Vol] 193 mg/dL High 74-106 [facility] Potassium [Moles/Vol] 3.6 mmol/L 3.5-5.1 [facility] Sodium [Moles/Vol] 132 mmol/L Low 136-145 [facility] Urea nitrogen [Mass/Vol] 22.0 mg/dL High 7.0-18.0 [facility] Urea nitrogen/Creatinine [Mass ratio] 9.9 mg/mg [facility] - Hematology and Cell countson 12-30-2023 Immature granulocytes/100 WBC (Bld) 0.7 % High 0.0-0.5 [facility] Leukocytes [#/volume] correc jorge for nucleated erythrocytes in Blood by Automated counon 12-30-2023 WBC corrected for nucl RBC Auto (Bld) [#/Vol] 10.7 10 3/uL 4.0-11.0 [facility] Lymphocytes Auto (Bld) [#/Vo l]on 12-30-2023 Lymphocytes (Bld) [#/Vol] 2.3 10 3/uL 1.2-3.8 [facility] Lymphocytes/100 WBC Auto (Bl d)on 12-30-2023 Lymphocytes/100 WBC (Bld) 21.5 % 20.5-60.0 [facility] MCH Auto (RBC) [Entitic mass ]on 12-30-2023 MCH (RBC) [Entitic mass] 24.4 pg Low 25.9-34.0 [facility] MCHC Auto (RBC) [Mass/Vol]on 12-30-2023 MCHC (RBC) [Mass/Vol] 31.4 g/dL 29.9-35.2 [facility] MCV Auto (RBC) [Entitic vol] on 12-30-2023 MCV (RBC) [Entitic vol] 77.7 fL Low 80.0-94.0 [facility] Monocytes Auto (Bld) [#/Vol] on 12-30-2023 Monocytes (Bld) [#/Vol] 0.9 10 3/uL High 0.3-0.8 [facility] Monocytes/100 WBC Auto (Bld) on 12-30-2023 Monocytes/100 WBC (Bld) 8.4 % 1.7-12.0 [facility] Neutrophils Auto (Bld) [#/Vo l]on 12-30-2023 Neutrophils (Bld) [#/Vol] 7.1 10 3/uL High 1.4-6.5 [facility] Neutrophils/100 WBC Auto (Bl d)on 12-30-2023 Neutrophils/100 WBC (Bld) 66.4 % 43.0-75.0 [facility] No Panel Informationon 12-29 Troponin I High Sensitivity 5.7 pg/mL 4.0-76.1 [facility] Comment on [...] DIAGNOSTIC AND CLINICAL INFORMATION. 5.7 pg/mL 4.0-76.1 [facility] Eosinophils # (Auto) 0.3 10 3/uL 0.0-0.7 [facility] Immature Granulocyte # (Auto) 0.07 10 3/uL High 0.00-0.03 [facility] 9.9 [facility] 22.0 mg/dL High 7.0-18.0 [facility] 0.3 10 3/uL 0.0-0.7 [facility] 9.2 mg/dL 8.5-10.1 [facility] 95 mmol/L Low 98-107 [facility] 27.2 mmol/L 21.0-32.0 [facility] 2.23 mg/dL High 0.70-1.30 [facility] 0.07 10 3/uL High 0.00-0.03 [facility] 37 Low >=60 [facility] 0.7 % High 0.0-0.5 [facility] 193 mg/dL High 74-106 [facility] 3.6 mmol/L 3.5-5.1 [facility] 132 mmol/L Low 136-145 [facility] Platelet mean volume Auto (B ld) [Entitic vol]on 12-30-2023 Platelet mean volume (Bld) [Entitic vol] 10.4 fL 9.5-13.5 [facility] Platelets Auto (Bld) [#/Vol] on 12-30-2023 Platelets (Bld) [#/Vol] 368 10 3/uL 150-450 [facility] RBC Auto (Bld) [#/Vol]on RBC (Bld) [#/Vol] 3.49 10 6/uL Low 4.70-6.10 [facility] Serum or plasma anion gap de terminationon 12-30-2023 Anion gap [Moles/Vol] 13.4 [facility] Bas[facility] Auto (Bld) [#/Vol] on 12-23-2023 Basophils (Bld) [#/Vol] 0.1 10 3/uL 0.0-0.1 [facility] Basophils/100 WBC Auto (Bld) on 12-23-2023 Basophils/100 WBC (Bld) 0.4 % 0.2-2.0 [facility] Eosinophils/100 WBC Auto (Bl d)on 12-23-2023 Eosinophils/100 WBC (Bld) 1.0 % 0.9-7.0 [facility] Erythrocyte distribution wid th Auto (RBC) [Ratio]on 12-23-2023 Erythrocyte distribution width (RBC) [Ratio] 16.4 % High 11.0-15.0 [facility] Estimated glomerular filtrat ion rate (GFR) non- Americanon 12-23-2023 GFR/1.73 sq M.predicted among non-blacks MDRD (S/P/Bld) [Vol rate/Area] 37 mL/min/{1.73_m2} Low >=60 [facility] Globulin Calc (S) [Mass/Vol] on 12-23-2023 Globulin (S) [Mass/Vol] 3.3 g/dL [facility] Hematocrit Auto (Bld) [Volum e fraction]on 12-23-2023 Hematocrit (Bld) [Volume fraction] 23.6 % Low 42.0-54.0 [facility] Comment on above: RESULTS CALLED TO MARYSE BOUDREAUX RN Hemoglobin [Mass/volume] in Bloodon 12-23-2023 Hemoglobin (Bld) [Mass/Vol] 7.1 g/dL Low 14.0-18.0 [facility] - Chemistry and C hemistry - challengeon 12-23-2023 Albumin [Mass/Vol] 2.2 g/dL Low 3.4-5.0 [facility] ALP [Catalytic activity/Vol] 127 U/L High 46-116 [facility] ALT [Catalytic activity/Vol] 13 U/L Low 16-63 [facility] AST [Catalytic activity/Vol] 10 U/L Low 15-37 [facility] Bilirubin [Mass/Vol] 0.2 mg/dL 0.2-1.0 [facility] Calcium [Mass/Vol] 7.4 mg/dL Low 8.5-10.1 [facility] Chloride [Moles/Vol] 103 mmol/L 98-107 [facility] CO2 [Moles/Vol] 23.4 mmol/L 21.0-32.0 [facility] Creatinine [Mass/Vol] 1.88 mg/dL High 0.70-1.30 [facility] GFR/1.73 sq M.predicted MDRD (S/P/Bld) [Vol rate/Area] 45 mL/min/{1.73_m2} Low >=60 [facility] Glucose [Mass/Vol] 357 mg/dL High 74-106 [facility] Magnesium [Mass/Vol] 1.5 mg/dL Low 1.8-2.4 [facility] Potassium [Moles/Vol] 4.4 mmol/L 3.5-5.1 [facility] Protein [Mass/Vol] 5.5 g/dL Low 6.4-8.2 [facility] Sodium [Moles/Vol] 136 mmol/L 136-145 [facility] Urea nitrogen [Mass/Vol] 30.0 mg/dL High 7.0-18.0 [facility] Urea nitrogen/Creatinine [Mass ratio] 16.0 mg/mg [facility] Laboratory - Hematology and Cell countson 12-23-2023 Immature granulocytes/100 WBC (Bld) 0.9 % High 0.0-0.5 [facility] Leukocytes [#/volume] correc jorge for nucleated erythrocytes in Blood by Automated counon 12-23-2023 WBC corrected for nucl RBC Auto (Bld) [#/Vol] 13.3 10 3/uL High 4.0-11.0 [facility] Lymphocytes Auto (Bld) [#/Vo l]on 12-23-2023 Lymphocytes (Bld) [#/Vol] 2.1 10 3/uL 1.2-3.8 [facility] Lymphocytes/100 WBC Auto (Bl d)on 12-23-2023 Lymphocytes/100 WBC (Bld) 15.7 % Low 20.5-60.0 [facility] MCH Auto (RBC) [Entitic mass ]on 12-23-2023 MCH (RBC) [Entitic mass] 25.0 pg Low 25.9-34.0 [facility] MCHC Auto (RBC) [Mass/Vol]on 12-23-2023 MCHC (RBC) [Mass/Vol] 30.1 g/dL 29.9-35.2 [facility] MCV Auto (RBC) [Entitic vol] on 12-23-2023 MCV (RBC) [Entitic vol] 83.1 fL 80.0-94.0 [facility] Monocytes Auto (Bld) [#/Vol] on 12-23-2023 Monocytes (Bld) [#/Vol] 0.6 10 3/uL 0.3-0.8 [facility] Monocytes/100 WBC Auto (Bld) on 12-23-2023 Monocytes/100 WBC (Bld) 4.7 % 1.7-12.0 [facility] Neutrophils Auto (Bld) [#/Vo l]on 12-23-2023 Neutrophils (Bld) [#/Vol] 10.3 10 3/uL High 1.4-6.5 [facility] Neutrophils/100 WBC Auto (Bl d)on 12-23-2023 Neutrophils/100 WBC (Bld) 77.3 % High 43.0-75.0 [facility] No Panel Informationon 12-22 Eosinophils # (Auto) 0.1 10 3/uL 0.0-0.7 [facility] Immature Granulocyte # (Auto) 0.12 10 3/uL High 0.00-0.03 [facility] 1.5 mg/dL Low 1.8-2.4 [facility] 2.2 g/dL Low 3.4-5.0 [facility] 0.1 10 3/uL 0.0-0.7 [facility] 127 U/L High 46-116 [facility] 13 U/L Low 16-63 [facility] 10 U/L Low 15-37 [facility] 16.0 [facility] 0.12 10 3/uL High 0.00-0.03 [facility] 30.0 mg/dL High 7.0-18.0 [facility] 0.9 % High 0.0-0.5 [facility] 7.4 mg/dL Low 8.5-10.1 [facility] 103 mmol/L 98-107 [facility] 23.4 mmol/L 21.0-32.0 [facility] [facility]/dL High 0.70-1.30 [facility] 45 Low >=60 [facility] 357 mg/dL High 74-106 [facility] 4.4 mmol/L 3.5-5.1 [facility] 136 mmol/L 136-145 [facility] 0.2 mg/dL 0.2-1.0 [facility] 5.5 g/dL Low 6.4-8.2 [facility] Platelet mean volume Auto (B ld) [Entitic vol]on 12-23-2023 Platelet mean volume (Bld) [Entitic vol] 10.3 fL 9.5-13.5 [facility] Platelets Auto (Bld) [#/Vol] on 12-23-2023 Platelets (Bld) [#/Vol] 373 10 3/uL 150-450 [facility] RBC Auto (Bld) [#/Vol]on RBC (Bld) [#/Vol] 2.84 10 6/uL Low 4.70-6.10 [facility] Serum or plasma albumin/glob ulin mass ratioon 12-23-2023 Albumin/Globulin [Mass ratio] 0.7 {ratio} [facility] Serum or plasma anion gap de terminationon 12-23-2023 Anion gap [Moles/Vol] 14.0 mmol/L Fi [facility] Basophils Auto (Bld) [#/Vol] on 12-22-2023 Basophils (Bld) [#/Vol] 0.0 10 3/uL 0.0-0.1 [facility] Basophils/100 WBC Auto (Bld) on 12-22-2023 Basophils/100 WBC (Bld) 0.2 % 0.2-2.0 [facility] Eosinophils/100 WBC Auto (Bl d)on 12-22-2023 Eosinophils/100 WBC (Bld) 0.1 % Low 0.9-7.0 [facility] Erythrocyte distribution wid th Auto (RBC) [Ratio]on 12-22-2023 Erythrocyte distribution width (RBC) [Ratio] 16.5 % High 11.0-15.0 [facility] Estimated glomerular filtrat ion rate (GFR) non- Americanon 12-22-2023 GFR/1.73 sq M.predicted among non-blacks MDRD (S/P/Bld) [Vol rate/Area] 23 mL/min/{1.73_m2} Low >=60 [facility] Globulin Calc (S) [Mass/Vol] on 12-22-2023 Globulin (S) [Mass/Vol] 3.8 g/dL [facility] Hematocrit Auto (Bld) [Volum e fraction]on 12-22-2023 Hematocrit (Bld) [Volume fraction] 25.4 % Low 42.0-54.0 [facility] Hemoglobin [Mass/volume] in Bloodon 12-22-2023 Hemoglobin (Bld) [Mass/Vol] 7.6 g/dL Low 14.0-18.0 [facility] Laboratory - Chemistry and C hemistry - challengeon 12-22-2023 Bilirubin Ql (U) Negative NEGATIVE [facility] Glucose (U) [Mass/Vol] mg/dL Abnormal NEGATIVE [facility] Ketones Ql (U) Negative NEGATIVE [facility] pH (U) 6.5 [pH] 5.0-9.0 [facility] Specific gravity (U) [Rel density] <=1.005 Abnormal 1.005-1.02 5 [facility] Urobilinogen Qn (U) 0.2 {Brendan'U}/dL 0.2-1.0 [facility] Calcium [Mass/Vol] 7.2 mg/dL Low 8.5-10.1 [facility] Chloride [Moles/Vol] 95 mmol/L Low 98-107 [facility] CO2 [Moles/Vol] 21.7 mmol/L 21.0-32.0 [facility] Creatinine [Mass/Vol] 2.80 mg/dL High 0.70-1.30 [facility] GFR/1.73 sq M.predicted MDRD (S/P/Bld) [Vol rate/Area] 28 mL/min/{1.73_m2} Low >=60 [facility] Glucose [Mass/Vol] 683 mg/dL High 74-106 [facility] Comment on above: RESULTS CALLED TO Me Faraz Pickard RN Potassium [Moles/Vol] 4.8 mmol/L 3.5-5.1 [facility] Sodium [Moles/Vol] 129 mmol/L Low 136-145 [facility] Urea nitrogen [Mass/Vol] 27.0 mg/dL High 7.0-18.0 [facility] Urea nitrogen/Creatinine [Mass ratio] 9.6 mg/mg [facility] Albumin [Mass/Vol] 2.3 g/dL Low 3.4-5.0 [facility] ALP [Catalytic activity/Vol] 143 U/L High 46-116 [facility] ALT [Catalytic activity/Vol] 15 U/L Low 16-63 [facility] AST [Catalytic activity/Vol] 9 U/L Low 15-37 [facility] Bilirubin [Mass/Vol] 0.2 mg/dL 0.2-1.0 [facility] Magnesium [Mass/Vol] 0.9 mg/dL Low 1.8-2.4 [facility] Comment on above: RESULTS CALLED TO FATIMAH SANTIAGO RN Natriuretic peptide B (Bld) [Mass/Vol] 322.0 pg/mL <=900.0 [facility] Protein [Mass/Vol] 6.1 g/dL Low 6.4-8.2 [facility] Laboratory - Hematology and Cell countson 12-22-2023 Immature granulocytes/100 WBC (Bld) 0.9 % High 0.0-0.5 [facility] Laboratory - Specimen inform ationon 12-22-2023 Appearance (U) CLEAR CLEAR [facility] Color (U) LT. YELLOW YELLOW [facility] Laboratory - Urinalysison Leukocyte esterase Test strip Ql (U) Negative NEGATIVE [facility] Mucus Ql (Urine sed) NONE SEEN NONE SEEN [facility] Nitrite Ql (U) Negative NEGATIVE [facility] Protein Ql (U) Negative NEG/TRACE [facility] Leukocytes [#/volume] correc jorge for nucleated erythrocytes in Blood by Automated counon 12-22-2023 WBC corrected for nucl RBC Auto (Bld) [#/Vol] 11.7 10 3/uL High 4.0-11.0 [facility] Lymphocytes Auto (Bld) [#/Vo l]on 12-22-2023 Lymphocytes (Bld) [#/Vol] 0.9 10 3/uL Low 1.2-3.8 [facility] Lymphocytes/100 WBC Auto (Bl d)on 12-22-2023 Lymphocytes/100 WBC (Bld) 7.6 % Low 20.5-60.0 [facility] MCH Auto (RBC) [Entitic mass ]on 12-22-2023 MCH (RBC) [Entitic mass] 24.4 pg Low 25.9-34.0 [facility] MCHC Auto (RBC) [Mass/Vol]on 12-22-2023 MCHC (RBC) [Mass/Vol] 29.9 g/dL 29.9-35.2 [facility] MCV Auto (RBC) [Entitic vol] on 12-22-2023 MCV (RBC) [Entitic vol] 81.7 fL 80.0-94.0 [facility] Monocytes Auto (Bld) [#/Vol] on 12-22-2023 Monocytes (Bld) [#/Vol] 0.2 10 3/uL Low 0.3-0.8 [facility] Monocytes/100 WBC Auto (Bld) on 12-22-2023 Monocytes/100 WBC (Bld) 1.4 % Low 1.7-12.0 [facility] Neutrophils Auto (Bld) [#/Vo l]on 12-22-2023 Neutrophils (Bld) [#/Vol] 10.5 10 3/uL High 1.4-6.5 [facility] Neutrophils/100 WBC Auto (Bl d)on 12-22-2023 Neutrophils/100 WBC (Bld) 89.8 % High 43.0-75.0 [facility] No Panel Informationon 12-21 Urine Bacteria NONE SEEN #/HPF NONE SEEN [facility] Urine Occult Blood Negative NEGATIVE [facility] Urine Other Casts NONE SEEN #/LPF NONE SEEN [facility] Urine Other Crystals None Seen #/HPF None Seen [facility] Urine RBC 0-2 #/HPF 0-2 [facility] Urine Squamous Epithelial Cells NONE SEEN #/LPF NONE/RARE [facility] Urine WBC 0-2 #/HPF Abnormal NONE SEEN [facility] NONE SEEN #/LPF NONE/RARE [facility] None Seen #/HPF NONE SEEN [facility] Negative NEG/TRACE [facility] CLEAR CLEAR [facility] LT. YELLOW YELLOW [facility] >=1000 mg/dL Abnormal NEGATIVE [facility] NONE SEEN NONE SEEN [facility] 6.5 5.0-9.0 [facility] 0-2 #/HPF Abnormal NONE SEEN [facility] <=1.005 Abnormal 1.005-1.02 5 [facility] 0.2 EU/dL 0.2-1.0 [facility] 9.6 [facility] 27.0 mg/dL High 7.0-18.0 [facility] 7.2 mg/dL Low 8.5-10.1 [facility] 95 mmol/L Low 98-107 [facility] 21.7 mmol/L 21.0-32.0 [facility] 2.80 mg/dL High 0.70-1.30 [facility] 28 Low >=60 [facility] 683 mg/dL High 74-106 [facility] 4.8 mmol/L 3.5-5.1 [facility] 129 mmol/L Low 136-145 [facility] Eosinophils # (Auto) 0.0 10 3/uL 0.0-0.7 [facility] Immature Granulocyte # (Auto) 0.11 10 3/uL High 0.00-0.03 [facility] Phosphorus Level 2.7 mg/dL 2.6-4.7 [facility] 322.0 pg/mL <=900.0 [facility] 0.9 mg/dL Low 1.8-2.4 [facility] 2.7 mg/dL 2.6-4.7 [facility] 0.0 10 3/uL 0.0-0.7 [facility] 2.3 g/dL Low 3.4-5.0 [facility] 143 U/L High 46-116 [facility] 15 U/L Low 16-63 [facility] 9 U/L Low 15-37 [facility] 0.11 10 3/uL High 0.00-0.03 [facility] 0.9 % High 0.0-0.5 [facility] 0.2 mg/dL 0.2-1.0 [facility] 6.1 g/dL Low 6.4-8.2 [facility] Platelet mean volume Auto (B ld) [Entitic vol]on 12-22-2023 Platelet mean volume (Bld) [Entitic vol] 10.5 fL 9.5-13.5 [facility] Platelets Auto (Bld) [#/Vol] on 12-22-2023 Platelets (Bld) [#/Vol] 400 10 3/uL 150-450 [facility] RBC Auto (Bld) [#/Vol]on RBC (Bld) [#/Vol] 3.11 10 6/uL Low 4.70-6.10 [facility] Serum or plasma albumin/glob ulin mass ratioon 12-22-2023 Albumin/Globulin [Mass ratio] 0.6 {ratio} [facility] Serum or plasma anion gap de terminationon 12-22-2023 Anion gap [Moles/Vol] 17.1 mmol/L Fi [facility] Activated partial thrombopla stin time (aPTT) in platelet poor plasma by coagulation aon 12-21-2023 aPTT Coag (PPP) [Time] 26.6 s 22.3-36.2 Fi [facility] Basophils Auto (Bld) [#/Vol] on 12-21-2023 Basophils (Bld) [#/Vol] 0.1 10 3/uL 0.0-0.1 [facility] Basophils/100 WBC Auto (Bld) on 12-21-2023 Basophils/100 WBC (Bld) 0.8 % 0.2-2.0 [facility] Eosinophils/100 WBC Auto (Bl d)on 12-21-2023 Eosinophils/100 WBC (Bld) 4.2 % 0.9-7.0 [facility] Erythrocyte distribution wid th Auto (RBC) [Ratio]on 12-21-2023 Erythrocyte distribution width (RBC) [Ratio] 16.6 % High 11.0-15.0 [facility] Estimated glomerular filtrat ion rate (GFR) non- Americanon 12-21-2023 GFR/1.73 sq M.predicted among non-blacks MDRD (S/P/Bld) [Vol rate/Area] 23 mL/min/{1.73_m2} Low >=60 [facility] Globulin Calc (S) [Mass/Vol] on 12-21-2023 Globulin (S) [Mass/Vol] 4.0 g/dL [facility] Hematocrit Auto (Bld) [Volum e fraction]on 12-21-2023 Hematocrit (Bld) [Volume fraction] 28.2 % Low 42.0-54.0 [facility] Hemoglobin [Mass/volume] in Bloodon 12-21-2023 Hemoglobin (Bld) [Mass/Vol] 8.6 g/dL Low 14.0-18.0 [facility] INR in Platelet poor plasma by Coagulation assayon 12-21-2023 INR Coag (PPP) [Relative time] 1.05 {INR} [facility] Comment on above: DESIRED INR:2.0-3.0 CONDITIONS NOT LISTED BELOW2.5-3.5 FOR PROSTHETIC HEART VALVE REPLACEMENT2.5-3.5 RECURRENT THROMBOSIS Laboratory - Chemistry and C hemistry - challengeon 12-21-2023 Albumin [Mass/Vol] 2.8 g/dL Low 3.4-5.0 [facility] ALP [Catalytic activity/Vol] 132 U/L High 46-116 [facility] ALT [Catalytic activity/Vol] 13 U/L Low 16-63 [facility] AST [Catalytic activity/Vol] 10 U/L Low 15-37 [facility] Bilirubin [Mass/Vol] 0.3 mg/dL 0.2-1.0 [facility] Calcium [Mass/Vol] 7.8 mg/dL Low 8.5-10.1 [facility] Chloride [Moles/Vol] 99 mmol/L 98-107 [facility] CO2 [Moles/Vol] 29.9 mmol/L 21.0-32.0 [facility] Creatinine [Mass/Vol] 2.79 mg/dL High 0.70-1.30 [facility] GFR/1.73 sq M.predicted MDRD (S/P/Bld) [Vol rate/Area] 29 mL/min/{1.73_m2} Low >=60 [facility] Glucose [Mass/Vol] 56 mg/dL Low 74-106 [facility] Lactate [Moles/Vol] 1.6 mmol/L 0.4-2.0 [facility] Natriuretic peptide B (Bld) [Mass/Vol] 222.0 pg/mL <=900.0 [facility] Potassium [Moles/Vol] 3.3 mmol/L Low 3.5-5.1 [facility] Protein [Mass/Vol] 6.8 g/dL 6.4-8.2 [facility] Sodium [Moles/Vol] 138 mmol/L 136-145 [facility] Urea nitrogen [Mass/Vol] 29.0 mg/dL High 7.0-18.0 [facility] Urea nitrogen/Creatinine [Mass ratio] 10.4 mg/mg [facility] Laboratory - Hematology and Cell countson 12-21-2023 Immature granulocytes/100 WBC (Bld) 1.0 % High 0.0-0.5 [facility] Leukocytes [#/volume] correc jorge for nucleated erythrocytes in Blood by Automated counon 12-21-2023 WBC corrected for nucl RBC Auto (Bld) [#/Vol] 12.6 10 3/uL High 4.0-11.0 [facility] Lymphocytes Auto (Bld) [#/Vo l]on 12-21-2023 Lymphocytes (Bld) [#/Vol] 3.4 10 3/uL 1.2-3.8 [facility] Lymphocytes/100 WBC Auto (Bl d)on 12-21-2023 Lymphocytes/100 WBC (Bld) 26.6 % 20.5-60.0 [facility] MCH Auto (RBC) [Entitic mass ]on 12-21-2023 MCH (RBC) [Entitic mass] 24.7 pg Low 25.9-34.0 [facility] MCHC Auto (RBC) [Mass/Vol]on 12-21-2023 MCHC (RBC) [Mass/Vol] 30.5 g/dL 29.9-35.2 [facility] MCV Auto (RBC) [Entitic vol] on 12-21-2023 MCV (RBC) [Entitic vol] 81.0 fL 80.0-94.0 [facility] Monocytes Auto (Bld) [#/Vol] on 12-21-2023 Monocytes (Bld) [#/Vol] 0.6 10 3/uL 0.3-0.8 [facility] Monocytes/100 WBC Auto (Bld) on 12-21-2023 Monocytes/100 WBC (Bld) 4.9 % 1.7-12.0 [facility] Neutrophils Auto (Bld) [#/Vo l]on 12-21-2023 Neutrophils (Bld) [#/Vol] 7.9 10 3/uL High 1.4-6.5 [facility] Neutrophils/100 WBC Auto (Bl d)on 12-21-2023 Neutrophils/100 WBC (Bld) 62.5 % 43.0-75.0 [facility] No Panel Informationon 12-20 Troponin I High Sensitivity 5.1 pg/mL 4.0-76.1 [facility] Comment on [...] DIAGNOSTIC AND CLINICAL INFORMATION. 5.1 pg/mL 4.0-76.1 [facility] Eosinophils # (Auto) 0.5 10 3/uL 0.0-0.7 [facility] Immature Granulocyte # (Auto) 0.13 10 3/uL High 0.00-0.03 [facility] Venous Blood Partial Pressure CO2 39.8 mm[Hg] Low 40.0-52.0 [facility] Venous Blood pH 7.448 High 7.330-7.43 0 [facility] 222.0 pg/mL <=900.0 [facility] 1.6 mmol/L 0.4-2.0 [facility] 39.8 mm[Hg] Low 40.0-52.0 [facility] 7.448 High 7.330-7.43 0 [facility] 2.8 g/dL Low 3.4-5.0 [facility] 0.5 10 3/uL 0.0-0.7 [facility] 132 U/L High 46-116 [facility] 13 U/L Low 16-63 [facility] 10 U/L Low 15-37 [facility] 10.4 [facility] 0.13 10 3/uL High 0.00-0.03 [facility] 29.0 mg/dL High 7.0-18.0 [facility] 1.0 % High 0.0-0.5 [facility] 7.8 mg/dL Low 8.5-10.1 [facility] 99 mmol/L 98-107 [facility] 29.9 mmol/L 21.0-32.0 [facility] 2.79 mg/dL High 0.70-1.30 [facility] 29 Low >=60 [facility] 56 mg/dL Low 74-106 [facility] 3.3 mmol/L Low 3.5-5.1 [facility] 138 mmol/L 136-145 [facility] 0.3 mg/dL 0.2-1.0 [facility] 6.8 g/dL 6.4-8.2 [facility] No Panel InformationOrdered By: Марина Flores on 12-21-2023 Blood Culture 2 [facility] Blood Culture 1 [facility] Platelet mean volume Auto (B ld) [Entitic vol]on 12-21-2023 Platelet mean volume (Bld) [Entitic vol] 10.2 fL 9.5-13.5 [facility] Platelets Auto (Bld) [#/Vol] on 12-21-2023 Platelets (Bld) [#/Vol] 502 10 3/uL High 150-450 [facility] Prothrombin time (PT)on 12-03 PT Coag (PPP) [Time] 11.1 s 9.0-11.6 [facility] RBC Auto (Bld) [#/Vol]on RBC (Bld) [#/Vol] 3.48 10 6/uL Low 4.70-6.10 [facility] Serum or plasma albumin/glob ulin mass ratioon 12-21-2023 Albumin/Globulin [Mass ratio] 0.7 {ratio} [facility] Serum or plasma anion gap de terminationon 12-21-2023 Anion gap [Moles/Vol] 12.4 [facility] L Normal [facility] Basophils Auto (Bld) [#/Vol] on 12-10-2023 Basophils (Bld) [#/Vol] 0.1 10 3/uL 0.0-0.1 [facility] Basophils/100 WBC Auto (Bld) on 12-10-2023 Basophils/100 WBC (Bld) 0.9 % 0.2-2.0 [facility] Eosinophils/100 WBC Auto (Bl d)on 12-10-2023 Eosinophils/100 WBC (Bld) 2.6 % 0.9-7.0 [facility] Erythrocyte distribution wid th Auto (RBC) [Ratio]on 12-10-2023 Erythrocyte distribution width (RBC) [Ratio] 17.7 % High 11.0-15.0 [facility] Estimated glomerular filtrat ion rate (GFR) non- Americanon 12-10-2023 GFR/1.73 sq M.predicted among non-blacks MDRD (S/P/Bld) [Vol rate/Area] 38 mL/min/{1.73_m2} Low >=60 [facility] Globulin Calc (S) [Mass/Vol] on 12-10-2023 Globulin (S) [Mass/Vol] 3.9 g/dL [facility] Hematocrit Auto (Bld) [Volum e fraction]on 12-10-2023 Hematocrit (Bld) [Volume fraction] 34.2 % Low 42.0-54.0 [facility] Hemoglobin [Mass/volume] in Bloodon 12-10-2023 Hemoglobin (Bld) [Mass/Vol] 10.5 g/dL Low 14.0-18.0 [facility] Laboratory - Chemistry and C hemistry - challengeon 12-10-2023 Albumin [Mass/Vol] 2.8 g/dL Low 3.4-5.0 [facility] ALP [Catalytic activity/Vol] 119 U/L High 46-116 [facility] ALT [Catalytic activity/Vol] 11 U/L Low 16-63 [facility] AST [Catalytic activity/Vol] 10 U/L Low 15-37 [facility] Bilirubin [Mass/Vol] 0.4 mg/dL 0.2-1.0 [facility] Calcium [Mass/Vol] 8.4 mg/dL Low 8.5-10.1 [facility] Chloride [Moles/Vol] 101 mmol/L 98-107 [facility] CO2 [Moles/Vol] 27.0 mmol/L 21.0-32.0 [facility] Creatinine [Mass/Vol] 1.83 mg/dL High 0.70-1.30 [facility] GFR/1.73 sq M.predicted MDRD (S/P/Bld) [Vol rate/Area] 46 mL/min/{1.73_m2} Low >=60 [facility] Glucose [Mass/Vol] 113 mg/dL High 74-106 [facility] Potassium [Moles/Vol] 3.3 mmol/L Low 3.5-5.1 [facility] Protein [Mass/Vol] 6.7 g/dL 6.4-8.2 [facility] Sodium [Moles/Vol] 134 mmol/L Low 136-145 [facility] Urea nitrogen [Mass/Vol] 21.0 mg/dL High 7.0-18.0 [facility] Urea nitrogen/Creatinine [Mass ratio] 11.5 mg/mg [facility] Laboratory - Hematology and Cell countson 12-10-2023 Immature granulocytes/100 WBC (Bld) 0.3 % 0.0-0.5 [facility] Leukocytes [#/volume] correc jorge for nucleated erythrocytes in Blood by Automated counon 12-10-2023 WBC corrected for nucl RBC Auto (Bld) [#/Vol] 9.8 10 3/uL 4.0-11.0 [facility] Lymphocytes Auto (Bld) [#/Vo l]on 12-10-2023 Lymphocytes (Bld) [#/Vol] 1.5 10 3/uL 1.2-3.8 [facility] Lymphocytes/100 WBC Auto (Bl d)on 12-10-2023 Lymphocytes/100 WBC (Bld) 15.8 % Low 20.5-60.0 [facility] MCH Auto (RBC) [Entitic mass ]on 12-10-2023 MCH (RBC) [Entitic mass] 25.1 pg Low 25.9-34.0 [facility] MCHC Auto (RBC) [Mass/Vol]on 12-10-2023 MCHC (RBC) [Mass/Vol] 30.7 g/dL 29.9-35.2 [facility] MCV Auto (RBC) [Entitic vol] on 12-10-2023 MCV (RBC) [Entitic vol] 81.6 fL 80.0-94.0 [facility] Monocytes Auto (Bld) [#/Vol] on 12-10-2023 Monocytes (Bld) [#/Vol] 1.2 10 3/uL High 0.3-0.8 [facility] Monocytes/100 WBC Auto (Bld) on 12-10-2023 Monocytes/100 WBC (Bld) 11.9 % 1.7-12.0 [facility] Neutrophils Auto (Bld) [#/Vo l]on 12-10-2023 Neutrophils (Bld) [#/Vol] 6.7 10 3/uL High 1.4-6.5 [facility] Neutrophils/100 WBC Auto (Bl d)on 12-10-2023 Neutrophils/100 WBC (Bld) 68.5 % 43.0-75.0 [facility] No Panel Informationon 12-09 Eosinophils # (Auto) 0.3 10 3/uL 0.0-0.7 [facility] Immature Granulocyte # (Auto) 0.03 10 3/uL 0.00-0.03 [facility] 2.8 g/dL Low 3.4-5.0 [facility] 0.3 10 3/uL 0.0-0.7 [facility] 119 U/L High 46-116 [facility] 11 U/L Low 16-63 [facility] 10 U/L Low 15-37 [facility] 11.5 [facility] 0.03 10 3/uL 0.00-0.03 [facility] 21.0 mg/dL High 7.0-18.0 [facility] 0.3 % 0.0-0.5 [facility] 8.4 mg/dL Low 8.5-10.1 [facility] 101 mmol/L 98-107 [facility] 27.0 mmol/L 21.0-32.0 [facility] 1.83 mg/dL High 0.70-1.30 [facility] 46 Low >=60 [facility] 113 mg/dL High 74-106 [facility] 3.3 mmol/L Low 3.5-5.1 [facility] 134 mmol/L Low 136-145 [facility] 0.4 mg/dL 0.2-1.0 [facility] 6.7 g/dL 6.4-8.2 [facility] Platelet mean volume Auto (B ld) [Entitic vol]on 12-10-2023 Platelet mean volume (Bld) [Entitic vol] 10.2 fL 9.5-13.5 [facility] Platelets Auto (Bld) [#/Vol] on 12-10-2023 Platelets (Bld) [#/Vol] 240 10 3/uL 150-450 [facility] RBC Auto (Bld) [#/Vol]on RBC (Bld) [#/Vol] 4.19 10 6/uL Low 4.70-6.10 [facility] Serum or plasma albumin/glob ulin mass ratioon 12-10-2023 Albumin/Globulin [Mass ratio] 0.7 {ratio} [facility] Serum or plasma anion gap de terminationon 12-10-2023 Anion gap [Moles/Vol] 9.3 mmol/L [facility] Basophils Auto (Bld) [#/Vol] on 12-09-2023 Basophils (Bld) [#/Vol] 0.1 10 3/uL 0.0-0.1 [facility] Basophils/100 WBC Auto (Bld) on 12-09-2023 Basophils/100 WBC (Bld) 1.0 % 0.2-2.0 [facility] Eosinophils/100 WBC Auto (Bl d)on 12-09-2023 Eosinophils/100 WBC (Bld) 1.6 % 0.9-7.0 [facility] Erythrocyte distribution wid th Auto (RBC) [Ratio]on 12-09-2023 Erythrocyte distribution width (RBC) [Ratio] 17.7 % High 11.0-15.0 [facility] Estimated glomerular filtrat ion rate (GFR) non- Americanon 12-09-2023 GFR/1.73 sq M.predicted among non-blacks MDRD (S/P/Bld) [Vol rate/Area] 31 mL/min/{1.73_m2} Low >=60 [facility] Fibrin D-dimer [Presence] in Platelet poor plasma by Latex agglutinationon 12-09-2023 Fibrin D-dimer LA Ql (PPP) 3.76 mg/L FEU High <=0.59 [facility] Comment on above: RESULTS CALLED [...] on 12-09-2023 Globulin (S) [Mass/Vol] 4.6 g/dL [facility] Hematocrit Auto (Bld) [Volum e fraction]on 12-09-2023 Hematocrit (Bld) [Volume fraction] 39.2 % Low 42.0-54.0 [facility] Hemoglobin [Mass/volume] in Bloodon 12-09-2023 Hemoglobin (Bld) [Mass/Vol] 12.2 g/dL Low 14.0-18.0 [facility] Laboratory - Chemistry and C hemistry - challengeon 12-09-2023 Lactate [Moles/Vol] 2.9 mmol/L High 0.4-2.0 [facility] Comment on above: RESULTS CALLED TO RM SHARPE RN Bilirubin Ql (U) Negative NEGATIVE [facility] Glucose (U) [Mass/Vol] 500 mg/dL Abnormal [facility] Ketones Ql (U) Negative NEGATIVE [facility] pH (U) 6.5 [pH] 5.0-9.0 [facility] Specific gravity (U) [Rel density] 1.020 1.005-1.02 5 [facility] Urobilinogen Qn (U) 0.2 {Brendan'U}/dL 0.2-1.0 [facility] Albumin [Mass/Vol] 3.5 g/dL 3.4-5.0 [facility] ALP [Catalytic activity/Vol] 141 U/L High 46-116 [facility] ALT [Catalytic activity/Vol] 13 U/L Low 16-63 [facility] AST [Catalytic activity/Vol] 8 U/L Low 15-37 [facility] Bilirubin [Mass/Vol] 0.7 mg/dL 0.2-1.0 [facility] Calcium [Mass/Vol] 9.6 mg/dL 8.5-10.1 [facility] Chloride [Moles/Vol] 99 mmol/L 98-107 [facility] CO2 [Moles/Vol] 21.7 mmol/L 21.0-32.0 [facility] Creatinine [Mass/Vol] 2.17 mg/dL High 0.70-1.30 [facility] GFR/1.73 sq M.predicted MDRD (S/P/Bld) [Vol rate/Area] 38 mL/min/{1.73_m2} Low >=60 [facility] Glucose [Mass/Vol] 191 mg/dL High 74-106 [facility] Magnesium [Mass/Vol] 1.6 mg/dL Low 1.8-2.4 [facility] Potassium [Moles/Vol] 3.8 mmol/L 3.5-5.1 [facility] Protein [Mass/Vol] 8.1 g/dL 6.4-8.2 [facility] Sodium [Moles/Vol] 135 mmol/L Low 136-145 [facility] Urea nitrogen [Mass/Vol] 20.0 mg/dL High 7.0-18.0 [facility] Urea nitrogen/Creatinine [Mass ratio] 9.2 mg/mg [facility] Laboratory - Hematology and Cell countson 12-09-2023 Immature granulocytes/100 WBC (Bld) 0.3 % 0.0-0.5 [facility] - Microbiology an d Antimicrobial susceptibilityon 12-09-2023 SARS-CoV-2 (COVID-19) RNA NELLY+probe Ql (Unsp spec) Negative NEGATIVE [facility] Comment on above: This test [...] inform ationon 12-09-2023 Appearance (U) CLEAR CLEAR [facility] Color (U) YELLOW YELLOW [facility] Laboratory - Urinalysison Leukocyte esterase Test strip Ql (U) Negative NEGATIVE [facility] Nitrite Ql (U) Negative NEGATIVE [facility] Protein Ql (U) Negative NEG/TRACE [facility] Leukocytes [#/volume] correc jorge for nucleated erythrocytes in Blood by Automated counon 12-09-2023 WBC corrected for nucl RBC Auto (Bld) [#/Vol] 9.3 10 3/uL 4.0-11.0 [facility] Lymphocytes Auto (Bld) [#/Vo l]on 12-09-2023 Lymphocytes (Bld) [#/Vol] 1.5 10 3/uL 1.2-3.8 [facility] Lymphocytes/100 WBC Auto (Bl d)on 12-09-2023 Lymphocytes/100 WBC (Bld) 15.7 % Low 20.5-60.0 [facility] MCH Auto (RBC) [Entitic mass ]on 12-09-2023 MCH (RBC) [Entitic mass] 25.6 pg Low 25.9-34.0 [facility] MCHC Auto (RBC) [Mass/Vol]on 12-09-2023 MCHC (RBC) [Mass/Vol] 31.1 g/dL 29.9-35.2 [facility] MCV Auto (RBC) [Entitic vol] on 12-09-2023 MCV (RBC) [Entitic vol] 82.4 fL 80.0-94.0 [facility] Monocytes Auto (Bld) [#/Vol] on 12-09-2023 Monocytes (Bld) [#/Vol] 0.9 10 3/uL High 0.3-0.8 [facility] Monocytes/100 WBC Auto (Bld) on 12-09-2023 Monocytes/100 WBC (Bld) 9.1 % 1.7-12.0 [facility] Neutrophils Auto (Bld) [#/Vo l]on 12-09-2023 Neutrophils (Bld) [#/Vol] 6.7 10 3/uL High 1.4-6.5 [facility] [facility]100 WBC Auto (Bl d)on 12-09-2023 Neutrophils/100 WBC (Bld) 72.3 % 43.0-75.0 [facility] No Panel Informationon 12-08 2.9 mmol/L High 0.4-2.0 [facility] Urine Microscopic Review NO [facility] Urine Occult Blood Negative NEGATIVE [facility] Negative NEG/TRACE [facility] NO [facility] CLEAR CLEAR [facility] YELLOW YELLOW [facility] 500 mg/dL Abnormal NEGATIVE [facility] 6.5 5.0-9.0 [facility] 1.020 1.005-1.02 5 [facility] 0.2 EU/dL 0.2-1.0 [facility] Eosinophils # (Auto) 0.2 10 3/uL 0.0-0.7 Fir [facility] Immature Granulocyte # (Auto) 0.03 10 3/uL 0.00-0.03 [facility] Troponin I High Sensitivity 8.7 pg/mL 4.0-76.1 [facility] Comment on [...] DIAGNOSTIC AND CLINICAL INFORMATION. 8.7 pg/mL 4.0-76.1 [facility] 1.6 mg/dL Low 1.8-2.4 [facility] 3.5 g/dL 3.4-5.0 [facility] 0.2 10 3/uL 0.0-0.7 [facility] 141 U/L High 46-116 [facility] 13 U/L Low 16-63 [facility] 8 U/L Low 15-37 [facility] 9.2 [facility] 0.03 10 3/uL 0.00-0.03 [facility] 20.0 mg/dL High 7.0-18.0 [facility] 0.3 % 0.0-0.5 [facility] 9.6 mg/dL 8.5-10.1 [facility] 99 mmol/L 98-107 [facility] 21.7 mmol/L 21.0-32.0 [facility] 2.17 mg/dL High 0.70-1.30 [facility] 38 Low >=60 [facility] 191 mg/dL High 74-106 [facility] 3.8 mmol/L 3.5-5.1 [facility] 135 mmol/L Low 136-145 [facility] 0.7 mg/dL 0.2-1.0 [facility] 8.1 g/dL 6.4-8.2 [facility] Platelet mean volume Auto (B ld) [Entitic vol]on 12-09-2023 Platelet mean volume (Bld) [Entitic vol] 10.7 fL 9.5-13.5 [facility] Platelets Auto (Bld) [#/Vol] on 12-09-2023 Platelets (Bld) [#/Vol] 294 10 3/uL 150-450 [facility] RBC Auto (Bld) [#/Vol]on RBC (Bld) [#/Vol] 4.76 10 6/uL 4.70-6.10 [facility] Serum or plasma albumin/glob ulin mass ratioon 12-09-2023 Albumin/Globulin [Mass ratio] 0.8 {ratio} [facility] Serum or plasma anion gap de terminationon 12-09-2023 Anion gap [Moles/Vol] 18.1 mmol/L [facility] Outside Operativeon 11-28-19 24 Outside Operative [id number]#1.00TIFF Normal [facility] Physician Orderon 11-28-2023 Physician Order [id number]#1.00TIFF Normal [facility] Basophils Auto (Bld) [#/Vol] on 11-26-2023 Basophils (Bld) [#/Vol] 0.1 10 3/uL 0.0-0.1 [facility] Basophils/100 WBC Auto (Bld) on 11-26-2023 Basophils/100 WBC (Bld) 1.1 % 0.2-2.0 [facility] Eosinophils/100 WBC Auto (Bl d)on 11-26-2023 Eosinophils/100 WBC (Bld) 3.5 % 0.9-7.0 [facility] Erythrocyte distribution wid th Auto (RBC) [Ratio]on 11-26-2023 Erythrocyte distribution width (RBC) [Ratio] 20.0 % High 11.0-15.0 [facility] Estimated glomerular filtrat ion rate (GFR) non- Americanon 11-26-2023 GFR/1.73 sq M.predicted among non-blacks MDRD (S/P/Bld) [Vol rate/Area] 41 mL/min/{1.73_m2} Low >=60 [facility] Globulin Calc (S) [Mass/Vol] on 11-26-2023 Globulin (S) [Mass/Vol] 4.2 g/dL [facility] Hematocrit Auto (Bld) [Volum e fraction]on 11-26-2023 Hematocrit (Bld) [Volume fraction] 33.1 % Low 42.0-54.0 [facility] Hemoglobin [Mass/volume] in Bloodon 11-26-2023 Hemoglobin (Bld) [Mass/Vol] 9.8 g/dL Low 14.0-18.0 [facility] Laboratory - Chemistry and C hemistry - challengeon 11-26-2023 Albumin [Mass/Vol] 3.2 g/dL Low 3.4-5.0 [facility] ALP [Catalytic activity/Vol] 143 U/L High 46-116 [facility] ALT [Catalytic activity/Vol] 16 U/L 16-63 [facility] AST [Catalytic activity/Vol] 14 U/L Low 15-37 [facility] Bilirubin [Mass/Vol] 0.5 mg/dL 0.2-1.0 [facility] Calcium [Mass/Vol] 9.1 mg/dL 8.5-10.1 [facility] Chloride [Moles/Vol] 101 mmol/L 98-107 [facility] CO2 [Moles/Vol] 24.2 mmol/L 21.0-32.0 [facility] Creatinine [Mass/Vol] 1.72 mg/dL High 0.70-1.30 [facility] GFR/1.73 sq M.predicted MDRD (S/P/Bld) [Vol rate/Area] 50 mL/min/{1.73_m2} Low >=60 [facility] Glucose [Mass/Vol] 132 mg/dL High 74-106 [facility] Lactate [Moles/Vol] 3.6 mmol/L High 0.4-2.0 [facility] Comment on above: RESULTS CALLED TO DR CROOK/YASMIN Potassium [Moles/Vol] 3.7 mmol/L 3.5-5.1 [facility] Protein [Mass/Vol] 7.4 g/dL 6.4-8.2 [facility] Sodium [Moles/Vol] 138 mmol/L 136-145 [facility] Urea nitrogen [Mass/Vol] 26.0 mg/dL High 7.0-18.0 [facility] Urea nitrogen/Creatinine [Mass ratio] 15.1 mg/mg [facility] Laboratory - Hematology and Cell countson 11-26-2023 ESR (Bld) [Velocity] 96 mm/h High <=20 [facility] Immature granulocytes/100 WBC (Bld) 0.4 % 0.0-0.5 [facility] Leukocytes [#/volume] correc jorge for nucleated erythrocytes in Blood by Automated counon 11-26-2023 WBC corrected for nucl RBC Auto (Bld) [#/Vol] 9.1 10 3/uL 4.0-11.0 [facility] Lymphocytes Auto (Bld) [#/Vo l]on 11-26-2023 Lymphocytes (Bld) [#/Vol] 2.1 10 3/uL 1.2-3.8 [facility] Lymphocytes/100 WBC Auto (Bl d)on 11-26-2023 Lymphocytes/100 WBC (Bld) 23.4 % 20.5-60.0 [facility] MCH Auto (RBC) [Entitic mass ]on 11-26-2023 MCH (RBC) [Entitic mass] 24.8 pg Low 25.9-34.0 [facility] MCHC Auto (RBC) [Mass/Vol]on 11-26-2023 MCHC (RBC) [Mass/Vol] 29.6 g/dL Low 29.9-35.2 [facility] MCV Auto (RBC) [Entitic vol] on 11-26-2023 MCV (RBC) [Entitic vol] 83.8 fL 80.0-94.0 [facility] Monocytes Auto (Bld) [#/Vol] on 11-26-2023 Monocytes (Bld) [#/Vol] 0.8 10 3/uL 0.3-0.8 [facility] Monocytes/100 WBC Auto (Bld) on 11-26-2023 Monocytes/100 WBC (Bld) 8.5 % 1.7-12.0 [facility] Neutrophils Auto (Bld) [#/Vo l]on 11-26-2023 Neutrophils (Bld) [#/Vol] 5.7 10 3/uL 1.4-6.5 [facility] Neutrophils/100 WBC Auto (Bl d)on 11-26-2023 Neutrophils/100 WBC (Bld) 63.1 % 43.0-75.0 [facility] No Panel InformationOrdered By: HERNAN CROOK on 11-26-2023 Blood Culture 2 [facility] Blood Culture 1 [facility] No Panel Informationon 11-25 C-Reactive Protein, Quantitative <0.50 mg/dL <=0.50 [facility] Eosinophils # (Auto) 0.3 10 3/uL 0.0-0.7 [facility] Immature Granulocyte # (Auto) 0.04 10 3/uL High 0.00-0.03 [facility] Platelet mean volume Auto (B ld) [Entitic vol]on 11-26-2023 Platelet mean volume (Bld) [Entitic vol] 10.4 fL 9.5-13.5 [facility] Platelets Auto (Bld) [#/Vol] on 11-26-2023 Platelets (Bld) [#/Vol] 371 10 3/uL 150-450 [facility] RBC Auto (Bld) [#/Vol]on RBC (Bld) [#/Vol] 3.95 10 6/uL Low 4.70-6.10 [facility] Serum or plasma albumin/glob ulin mass ratioon 11-26-2023 Albumin/Globulin [Mass ratio] 0.8 {ratio} [facility] Serum or plasma anion gap de terminationon 11-26-2023 Anion gap [Moles/Vol] 16.5 mmol/L [facility] Progress Note-Physicianon Progress Note-Physician [id number]#1.00TIFF Normal [facility] Basophils Auto (Bld) [#/Vol] on 11-15-2023 Basophils (Bld) [#/Vol] 0.1 10 3/uL 0.0-0.1 [facility] Basophils/100 WBC Auto (Bld) on 11-15-2023 Basophils/100 WBC (Bld) 0.8 % 0.2-2.0 [facility] Eosinophils/100 WBC Auto (Bl d)on 11-15-2023 Eosinophils/100 WBC (Bld) 5.9 % 0.9-7.0 [facility] Erythrocyte distribution wid th Auto (RBC) [Ratio]on 11-15-2023 Erythrocyte distribution width (RBC) [Ratio] 20.6 % High 11.0-15.0 [facility] Estimated glomerular filtrat ion rate (GFR) non- Americanon 11-15-2023 GFR/1.73 sq M.predicted among non-blacks MDRD (S/P/Bld) [Vol rate/Area] 44 mL/min/{1.73_m2} Low >=60 [facility] Globulin Calc (S) [Mass/Vol] on 11-15-2023 Globulin (S) [Mass/Vol] 4.7 g/dL [facility] Hematocrit Auto (Bld) [Volum e fraction]on 11-15-2023 Hematocrit (Bld) [Volume fraction] 27.6 % Low 42.0-54.0 [facility] Hemoglobin [Mass/volume] in Bloodon 11-15-2023 Hemoglobin (Bld) [Mass/Vol] 8.5 g/dL Low 14.0-18.0 [facility] Laboratory - Chemistry and C hemistry - challengeon 11-15-2023 Albumin [Mass/Vol] 2.4 g/dL Low 3.4-5.0 [facility] ALP [Catalytic activity/Vol] 194 U/L High 46-116 [facility] ALT [Catalytic activity/Vol] 22 U/L 16-63 [facility] AST [Catalytic activity/Vol] 25 U/L 15-37 [facility] Bilirubin [Mass/Vol] 0.9 mg/dL 0.2-1.0 [facility] Calcium [Mass/Vol] 8.9 mg/dL 8.5-10.1 [facility] Chloride [Moles/Vol] 97 mmol/L Low 98-107 [facility] CO2 [Moles/Vol] 26.6 mmol/L 21.0-32.0 [facility] Creatinine [Mass/Vol] 1.63 mg/dL High 0.70-1.30 [facility] GFR/1.73 sq M.predicted MDRD (S/P/Bld) [Vol rate/Area] 53 mL/min/{1.73_m2} Low >=60 [facility] Glucose [Mass/Vol] 226 mg/dL High 74-106 [facility] Lactate [Moles/Vol] 1.4 mmol/L 0.4-2.0 [facility] Potassium [Moles/Vol] 4.1 mmol/L 3.5-5.1 [facility] Protein [Mass/Vol] 7.1 g/dL 6.4-8.2 [facility] Sodium [Moles/Vol] 135 mmol/L Low 136-145 [facility] Urea nitrogen [Mass/Vol] 24.0 mg/dL High 7.0-18.0 [facility] Urea nitrogen/Creatinine [Mass ratio] 14.7 mg/mg [facility] Laboratory - Hematology and Cell countson 11-15-2023 Immature granulocytes/100 WBC (Bld) 0.6 % High 0.0-0.5 [facility] Leukocytes [#/volume] correc jorge for nucleated erythrocytes in Blood by Automated counon 11-15-2023 WBC corrected for nucl RBC Auto (Bld) [#/Vol] 9.5 10 3/uL 4.0-11.0 [facility] Lymphocytes Auto (Bld) [#/Vo l]on 11-15-2023 Lymphocytes (Bld) [#/Vol] 1.3 10 3/uL 1.2-3.8 [facility] Lymphocytes/100 WBC Auto (Bl d)on 11-15-2023 Lymphocytes/100 WBC (Bld) 14.1 % Low 20.5-60.0 [facility] MCH Auto (RBC) [Entitic mass ]on 11-15-2023 MCH (RBC) [Entitic mass] 24.9 pg Low 25.9-34.0 [facility] MCHC Auto (RBC) [Mass/Vol]on 11-15-2023 MCHC (RBC) [Mass/Vol] 30.8 g/dL 29.9-35.2 [facility] MCV Auto (RBC) [Entitic vol] on 11-15-2023 MCV (RBC) [Entitic vol] 80.9 fL 80.0-94.0 [facility] Monocytes Auto (Bld) [#/Vol] on 11-15-2023 Monocytes (Bld) [#/Vol] 1.1 10 3/uL High 0.3-0.8 [facility] Monocytes/100 WBC Auto (Bld) on 11-15-2023 Monocytes/100 WBC (Bld) 11.9 % 1.7-12.0 [facility] Neutrophils Auto (Bld) [#/Vo l]on 11-15-2023 Neutrophils (Bld) [#/Vol] 6.4 10 3/uL 1.4-6.5 [facility] Neutrophils/100 WBC Auto (Bl d)on 11-15-2023 Neutrophils/100 WBC (Bld) 66.7 % 43.0-75.0 [facility] No Panel InformationOrdered By: Fely Marker on 11-15-2023 Blood Culture 2 [facility] Blood Culture 1 [facility] No Panel Informationon 11-14 Eosinophils # (Auto) 0.6 10 3/uL 0.0-0.7 [facility] Immature Granulocyte # (Auto) 0.06 10 3/uL High 0.00-0.03 [facility] Platelet mean volume Auto (B ld) [Entitic vol]on 11-15-2023 Platelet mean volume (Bld) [Entitic vol] 10.8 fL 9.5-13.5 [facility] Platelets Auto (Bld) [#/Vol] on 11-15-2023 Platelets (Bld) [#/Vol] 338 10 3/uL 150-450 [facility] RBC Auto (Bld) [#/Vol]on RBC (Bld) [#/Vol] 3.41 10 6/uL Low 4.70-6.10 [facility] Serum or plasma albumin/glob ulin mass ratioon 11-15-2023 Albumin/Globulin [Mass ratio] 0.5 {ratio} [facility] Serum or plasma anion gap de terminationon 11-15-2023 Anion gap [Moles/Vol] 15.5 mmol/L [facility] BASIC METABOLIC PANLon 11-13 Anion gap [Moles/Vol] 10 mmol/L Normal 5-15 [facility] Comment on above: Performed By: #### C [place], BMP, [address]-4, 2776-06 ####[facility] ([id number])[address] [address] [place] [address] Calcium [Mass/Vol] 8.8 mg/dL Normal 8.5-10.5 [facility] Comment on above: Performed By: #### C BC, BMP, , 2776-06 ####[facility] ([id number])[address] [address] Chloride [Moles/Vol] 99 mmol/L Normal 98-109 [facility] Comment on above: Performed By: #### C ALLY, KENDALL, , 2776-06 ####[facility] ([id number])[address] [address] CO2 [Moles/Vol] 26 mmol/L Normal 22-32 [facility] Comment on above: Performed By: #### Snehal CANALES, KENDALL, , 2776-06 ####[facility] ([id number])[address] [address] Creatinine [Mass/Vol] 1.61 mg/dL High 0.60-1.30 [facility] Comment on above: Result Comment: METH OD TRACEABLE TO IDMS STANDARD Performed By: #### C ALLY, BMP, , 2776-06 ####[facility] ([id number])[address] [address] GFR/1.73 sq M.predicted among non-blacks MDRD (S/P/Bld) [Vol rate/Area] 49 mL/min/{1.73_m2} Low >59 [facility] Comment on above: Result Comment: Reported eGFR is based on the CKD-EPI 2020 equation that does not use a race coefficient. Performed By: #### C BC, BMP, , 2776-06 ####[facility] ([id number])[address] [address] Glucose [Mass/Vol] 184 mg/dL High 65-99 [facility] Comment on above: Performed By: #### KENDALL AHUJA, , 2776-06 ####[facility] ([id number])[address], [address], [place] [address] Potassium [Moles/Vol] 4.0 mmol/L Normal 3.5-5.0 [facility] Comment on above: Performed By: #### C ALLY, KENDALL, , 2776-06 ####[facility] ([id number])[address], [address], [place] [address] Sodium [Moles/Vol] 135 mmol/L Normal 134-146 [facility] Comment on above: Performed By: #### KENDALL AHUJA, , 2776-06 ####[facility] ([id number])[address] [address], [place] [address] Urea nitrogen [Mass/Vol] 23 mg/dL Normal 5-23 [facility] Comment on above: Performed By: #### KENDALL AHUJA, , 2776-06 ####[facility] ([id number])[address] [address] [place] [address] COMPLETE BLOOD COUNTon 11-13 Erythrocyte distribution width (RBC) [Ratio] 22.8 % High 11.5-15.0 [facility] Comment on above: Performed By: #### KENDALL AHUJA, , 2776-06 ####[facility] ([id number])[address], [address], [place] [address] Hematocrit (Bld) [Volume fraction] 25.1 % Low 39-49 [facility] Comment on above: Performed By: #### KENDALL AHUJA, , 2776-06 ####[facility] ([id number])[address], [address], [place] [address] Hemoglobin (Bld) [Mass/Vol] 8.1 g/dL Low 13.0-17.0 [facility] Comment on above: Performed By: #### KENDALL AHUJA, , 2776-06 ####[facility] ([id number])[address], [address], [place] [address] MCH (RBC) [Entitic mass] 25.1 pg Low 27-34 [facility] Comment on above: Performed By: #### KENDALL AHUJA, , 2776-06 ####[facility] ([id number])[address], [place] [address] MCHC (RBC) [Mass/Vol] 32.4 g/dL Normal 32-36 [facility] Comment on above: Performed By: #### KENDALL AHUJA, , 2776-06 ####[facility] ([id number])[address], [address], [place] [address] MCV (RBC) [Entitic vol] 77 fL Low 80-100 [facility] Comment on above: Performed By: #### KENDALL AHUJA, , 2776-06 ####[facility] ([id number])[address], [address], [place] [address] Platelet mean volume (Bld) [Entitic vol] 8.8 fL Normal 7-12 [facility] Comment on above: Performed By: #### Snehal CANALES, BMP, , 2776-06 ####[facility] ([id number])[address], [address], [place] [address] Platelets (Bld) [#/Vol] 232 10*3/uL Normal 150-450 [facility] Comment on above: Performed By: #### KENDALL AHUJA, , 2776-06 ####[facility] ([id number])[address], [address], [place] [address] RBC COUNT 3.25 X10E12/L Low 4.10-5.70 [facility] Comment on above: Performed By: #### C ALLY, [facility], , 2776-06 ####[facility] ([id number])[address], [address] [place] [address] WBC (Bld) [#/Vol] 8.4 10*3/uL Normal 4.0-11.0 [facility] Comment on above: Performed By: #### C ALLY, [facility], , 2776-06 ####[facility] ([id number])[address], [place] [address] Glucose Glucometer (BldC) [M ass/Vol]on 11-14-2023 Glucose [Mass/Vol] 173 mg/dL High 65-99 [facility] Glucose [Mass/Vol] 279 mg/dL High 65-99 [facility] Glucose [Mass/Vol] 249 mg/dL High 65-99 [facility] MAGNESIUMon 11-14-2023 Magnesium [Mass/Vol] 2.1 mg/dL Normal 1.8-2.6 [facility] Comment on above: Performed By: #### 1 9123-9 ####[facility] ([id number])[address] [address] Magnesium [Mass/Vol] mg/dL Critically low 1.8-2.6 [facility] Comment on above: Performed By: #### 1 9123-9 ####[facility] ([id number])[address], [place] [address] Magnesium [Mass/Vol] 1.7 mg/dL Low 1.8-2.6 [facility] Comment on above: Performed By: #### C ALLY, BMP, , 2776-06 ####[facility] ([id number])[address], [address], [place] [address] PHOSPHORUSon 11-14-2023 Phosphate [Mass/Vol] 3.6 mg/dL Normal 2.4-4.9 [facility] Comment on above: Performed By: #### C ALLY, BMP, , 2776-06 ####[facility] ([id number])[address], [address], [place] [address] BASIC METABOLIC PANLon 11-12 Anion gap [Moles/Vol] 10 mmol/L Normal 5-15 [facility] Comment on above: Performed By: #### C ALLY, BMP, , 2776-06 ####[facility] ([id number])[address], [address], [place] [address] Calcium [Mass/Vol] 8.9 mg/dL Normal 8.5-10.5 [facility] Comment on above: Performed By: #### Snehal CANALES, BMP, , 2776-06 ####[facility] ([id number])[address], [address], [place] [address] Chloride [Moles/Vol] 98 mmol/L Normal 98-109 [facility] Comment on above: Performed By: #### Snehal CANALES, BMP, , 2776-06 ####[facility] ([id number])[address], [address], [place] [address] CO2 [Moles/Vol] 27 mmol/L Normal 22-32 [facility] Comment on above: Performed By: #### C ALLY, BMP, , 2776-06 ####[facility] ([id number])[address], [place] [address] Creatinine [Mass/Vol] 1.47 mg/dL High 0.60-1.30 [facility] Comment on above: Result Comment: METH OD TRACEABLE TO IDMS STANDARD Performed By: #### C KENDALL CANALES, , 2776-06 ####[facility] ([id number])[address], [address] [place] [address] GFR/1.73 sq M.predicted among non-blacks MDRD (S/P/Bld) [Vol rate/Area] 55 mL/min/{1.73_m2} Low >59 [facility] Comment on above: Result Comment: Reported eGFR is based on the CKD-EPI 2020 equation that does not use a race coefficient. Performed By: #### C KENDALL CANALES, , 2776-06 ####[facility] ([id number])[address], [place] [address] Glucose [Mass/Vol] 164 mg/dL High 65-99 [facility] Comment on above: Performed By: #### KENDALL AHUJA, , 2776-06 ####[facility] ([id number])[address] [address] [place] [address] Potassium [Moles/Vol] 3.8 mmol/L Normal 3.5-5.0 [facility] Comment on above: Performed By: #### KENDALL AHUJA, , 2776-06 ####[facility] ([id number])[address] [address] [place] [address] Sodium [Moles/Vol] 135 mmol/L Normal 134-146 [facility] Comment on above: Performed By: #### KENDALL AHUJA, , 2776-06 ####[facility] ([id number])[address] [place] [address] Urea nitrogen [Mass/Vol] 26 mg/dL High 5-23 [facility] Comment on above: Performed By: #### C KENDALL CANALES, , 2776-06 ####[facility] ([id number])[address] [place] [address] COMPLETE BLOOD COUNTon 11-12 Erythrocyte distribution width (RBC) [Ratio] 23.2 % High 11.5-15.0 [facility] Comment on above: Performed By: #### C ALLY, [facility], , 2776-06 ####[facility] ([id number])[address], [address] [place] [address] Hematocrit (Bld) [Volume fraction] 24.7 % Low 39-49 [facility] Comment on above: Performed By: #### C ALLY, [facility], , 2776-06 ####[facility] ([id number])[address] [place] [address] Hemoglobin (Bld) [Mass/Vol] 8.2 g/dL Low 13.0-17.0 [facility] Comment on above: Performed By: #### Snehal CANALES, [facility], , 2776-06 ####[facility] ([id number])[address], [address] [address] MCH (RBC) [Entitic mass] 25.7 pg Low 27-34 [facility] Comment on above: Performed By: #### Snehal CANALES, [facility], , 2776-06 ####[facility] ([id number])[address], [address] [address] MCHC (RBC) [Mass/Vol] 33.4 g/dL Normal 32-36 [facility] Comment on above: Performed By: #### C ALLY, BMP, , 2776-06 ####[facility] ([id number])[address], [address] [address] MCV (RBC) [Entitic vol] 77 fL Low 80-100 [facility] Comment on above: Performed By: #### Snehal CANALES, [facility], , 2776-06 ####[facility] ([id number])[address], [place] [address] Platelet mean volume (Bld) [Entitic vol] 8.8 fL Normal 7-12 [facility] Comment on above: Performed By: #### Snehal CANALES [facility], , 2776-06 ####[facility] ([id number])[address], [place] [address] Platelets (Bld) [#/Vol] 207 10*3/uL Normal 150-450 [facility] Comment on above: Performed By: #### KENDALL AHUJA, , 2776-06 ####[facility] ([id number])[address], [place] [address] RBC COUNT 3.21 X10E12/L Low 4.10-5.70 [facility] Comment on above: Performed By: #### KENDALL AHUJA, , 2776-06 ####[facility] ([id number])[address], [address], [place] [address] WBC (Bld) [#/Vol] 8.1 10*3/uL Normal 4.0-11.0 [facility] Comment on above: Performed By: #### Snehal CANALES [facility], , 2776-06 ####[facility] ([id number])[address], [address], [place] [address] Glucose Glucometer ([facility]) [M ass/Vol]on 11-13-2023 Glucose [Mass/Vol] 230 mg/dL High 65-99 [facility] Glucose [Mass/Vol] 225 mg/dL High 65-99 [facility] Glucose [Mass/Vol] 331 mg/dL High 65-99 [facility] Glucose [Mass/Vol] 190 mg/dL High 65-99 [facility] MAGNESIUMon 11-13-2023 Magnesium [Mass/Vol] 2.1 mg/dL Normal 1.8-2.6 [facility] Comment on above: Performed By: #### C ALLY, BMP, , 2777-1 ####[facility] ([id number])[address], [address] [place] [address] PHOSPHORUSon 11-13-2023 Phosphate [Mass/Vol] 3.8 mg/dL Normal 2.4-4.9 [facility] Comment on above: Performed By: #### C KENDALL CANALES, , 2777 ####[facility] ([id number])[address], [address] [place] [address] BASIC METABOLIC PANLon 11-11 Anion gap [Moles/Vol] 11 mmol/L Normal 5-15 [facility] Comment on above: Performed By: #### Snehal CANALES, BMP #### [facility] ([id number]) [address], [address] [place] [address] Calcium [Mass/Vol] 9.0 mg/dL Normal 8.5-10.5 [facility] Comment on above: Performed By: #### Snehal CANALES, BMP #### [facility] ([id number]) [address], [address] [place] [address] Chloride [Moles/Vol] 98 mmol/L Normal 98-109 [facility] Comment on above: Performed By: #### Snehal CANALES, BMP #### [facility] ([id number]) [address], [address] [place] [address] CO2 [Moles/Vol] 25 mmol/L Normal 22-32 [facility] Comment on above: Performed By: #### Snehal BC, BMP #### [facility] ([id number]) [address], [address] [place] [address] Creatinine [Mass/Vol] 1.40 mg/dL High 0.60-1.30 [facility] Comment on above: Result Comment: METH OD TRACEABLE TO IDMS STANDARD Performed By: #### C ALLY, BMP #### [facility] ([id number]) [address], [facility] [address] [place] [address] GFR/1.73 sq M.predicted among non-blacks MDRD (S/P/Bld) [Vol rate/Area] 58 mL/min/{1.73_m2} Low >59 [facility] Comment on above: Result Comment: Reported eGFR is based on the CKD-EPI 2020 equation that does not use a race coefficient. Performed By: #### Snehal CANALES, BMP #### [facility] ([id number]) [address], [address] [place] [address] Glucose [Mass/Vol] 194 mg/dL High 65-99 [facility] Comment on above: Performed By: #### Snehal CANALES, BMP #### [facility] ([id number]) [address] [address] [place] [address] Potassium [Moles/Vol] 4.0 mmol/L Normal 3.5-5.0 [facility] Comment on above: Performed By: #### Snehal CANALES, BMP #### [facility] ([id number]) [address] [address] [place] [address] Sodium [Moles/Vol] 134 mmol/L Normal 134-146 [facility] Comment on above: Performed By: #### Snehal CANALES, BMP #### [facility] ([id number]) [address] [address] [place] [address] Urea nitrogen [Mass/Vol] 23 mg/dL Normal 5-23 [facility] Comment on above: Performed By: #### Snehal CANALES, BMP #### [facility] ([id number]) [address] [place] [address] COMPLETE BLOOD COUNTon 11-11 Erythrocyte distribution width (RBC) [Ratio] 24.1 % High 11.5-15.0 [facility] Comment on above: Performed By: #### C ALLY, BMP #### [facility] ([id number]) [address], [address] [place] [address] Hematocrit (Bld) [Volume fraction] 25.8 % Low 39-49 [facility] Comment on above: Performed By: #### C ALLY, BMP #### [facility] ([id number]) [address], [address] [place] [address] Hemoglobin (Bld) [Mass/Vol] 8.6 g/dL Low 13.0-17.0 [facility] Comment on above: Performed By: #### C ALLY, BMP #### [facility] ([id number]) [address], [address] [place] [address] MCH (RBC) [Entitic mass] 25.7 pg Low 27-34 [facility] Comment on above: Performed By: #### C ALLY, BMP #### [facility] ([id number]) [address], [address] [place] [address] MCHC (RBC) [Mass/Vol] 33.5 g/dL Normal 32-36 [facility] Comment on above: Performed By: #### Snehal CANALES, BMP #### [facility] ([id number]) [address], [address] [place] [address] MCV (RBC) [Entitic vol] 77 fL Low 80-100 [facility] Comment on above: Performed By: #### C ALLY, BMP #### [facility] ([id number]) [address], [address] [place] [address] Platelet mean volume (Bld) [Entitic vol] 9.2 fL Normal 7-12 [facility] Comment on above: Performed By: #### C ALLY, BMP #### [facility] ([id number]) [address], [address] [place] [address] Platelets (Bld) [#/Vol] 185 10*3/uL Normal 150-450 [facility] Comment on above: Performed By: #### Snehal CANALES, BMP #### [facility] ([id number]) [address], [address] [place] [address] RBC COUNT 3.37 X10E12/L Low 4.10-5.70 [facility] Comment on above: Performed By: #### Snehal CANALES, BMP #### [facility] ([id number]) [address], [address] [place] [address] WBC (Bld) [#/Vol] 10.0 10*3/uL Normal 4.0-11.0 [facility] Comment on above: Performed By: #### Snehal CANALES, BMP #### [facility] ([id number]) [address], [address] [place] [address] Glucose Glucometer (dC) [M ass/Vol]on 11-12-2023 Glucose [Mass/Vol] 230 mg/dL High 65-99 [facility] Glucose [Mass/Vol] 280 mg/dL High 65-99 [facility] Glucose [Mass/Vol] 268 mg/dL High 65-99 [facility] Glucose [Mass/Vol] 220 mg/dL High 65-99 [facility] Glucose [Mass/Vol] 205 mg/dL High 65-99 [facility] MAGNESIUMon 11-12-2023 Magnesium [Mass/Vol] 1.8 mg/dL Normal 1.8-2.6 [facility] Comment on above: Performed By: #### C ALLY, BMP #### [facility] ([id number]) [address], [address] [place] [address] PHOSPHORUSon 11-12-2023 Phosphate [Mass/Vol] 3.8 mg/dL Normal 2.4-4.9 [facility] Comment on above: Performed By: #### Snehal CANALES, BMP #### [facility] ([id number]) [address], [address] [place] [address] BASIC METABOLIC PANLon 11-10 Anion gap [Moles/Vol] 8 mmol/L Normal 5-15 [facility] Comment on above: Performed By: #### Snehal CANALES, BMP #### [facility] ([id number]) [address], [address] [place] [address] Calcium [Mass/Vol] 8.7 mg/dL Normal 8.5-10.5 [facility] Comment on above: Performed By: #### Snehal CANALES, BMP #### [facility] ([id number]) [address], [address] [place] [address] Chloride [Moles/Vol] 99 mmol/L Normal 98-109 [facility] Comment on above: Performed By: #### Snehal CANALES, BMP #### [facility] ([id number]) [address], [address] [place] [address] CO2 [Moles/Vol] 26 mmol/L Normal 22-32 [facility] Comment on above: Performed By: #### Snehal CANALES, BMP #### [facility] ([id number]) [address], [address] [place] [address] Creatinine [Mass/Vol] 1.45 mg/dL High 0.60-1.30 [facility] Comment on above: Result Comment: METH OD TRACEABLE TO IDMS STANDARD Performed By: #### Snehal CANALES, BMP #### [facility] ([id number]) [address], [address] [place] [address] GFR/1.73 sq M.predicted among non-blacks MDRD (S/P/Bld) [Vol rate/Area] 56 mL/min/{1.73_m2} Low >59 [facility] Comment on above: Result Comment: Reported eGFR is based on the CKD-EPI 2020 equation that does not use a race coefficient. Performed By: #### C ALLY, BMP #### [facility] ([id number]) [address], [address] [place] [address] Glucose [Mass/Vol] 153 mg/dL High 65-99 [facility] Comment on above: Performed By: #### C ALLY, BMP #### [facility] ([id number]) [address], [address] [place] [address] Potassium [Moles/Vol] 3.9 mmol/L Normal 3.5-5.0 [facility] Comment on above: Performed By: #### C ALLY, BMP #### [facility] ([id number]) [address], [address] [place] [address] Sodium [Moles/Vol] 133 mmol/L Low 134-146 [facility] Comment on above: Performed By: #### C ALLY, BMP #### [facility] ([id number]) [address], [address] [place] [address] Urea nitrogen [Mass/Vol] 27 mg/dL High 5-23 [facility] Comment on above: Performed By: #### Snehal CANALES, BMP #### [facility] ([id number]) [address], [address] [place] [address] COMPLETE BLOOD COUNTon 11-10 Erythrocyte distribution width (RBC) [Ratio] 24.2 % High 11.5-15.0 [facility] Comment on above: Performed By: #### C ALLY, BMP #### [facility] ([id number]) [address], [address] [place] [address] Hematocrit (Bld) [Volume fraction] 25.1 % Low 39-49 [facility] Comment on above: Performed By: #### Snehal CANALES, BMP #### [facility] ([id number]) [address], [address] [place] [address] Hemoglobin (Bld) [Mass/Vol] 8.2 g/dL Low 13.0-17.0 [facility] Comment on above: Performed By: #### C ALLY, BMP #### [facility] ([id number]) [address], [address] [place] [address] MCH (RBC) [Entitic mass] 25.5 pg Low 27-34 [facility] Comment on above: Performed By: #### C ALLY, BMP #### [facility] ([id number]) [address], [address] [place] [address] MCHC (RBC) [Mass/Vol] 32.7 g/dL Normal 32-36 [facility] Comment on above: Performed By: #### Snehal CANALES, BMP #### [facility] ([id number]) [address], [address] [place] [address] MCV (RBC) [Entitic vol] 78 fL Low 80-100 [facility] Comment on above: Performed By: #### Snehal CANALES, BMP #### [facility] ([id number]) [address], [address] [place] [address] Platelet mean volume (Bld) [Entitic vol] 9.0 fL Normal 7-12 [facility] Comment on above: Performed By: #### Snehal CANALES, BMP #### [facility] ([id number]) [address], [address] [place] [address] Platelets (Bld) [#/Vol] 152 10*3/uL Normal 150-450 [facility] Comment on above: Performed By: #### Snehal CANALES, BMP #### [facility] ([id number]) [address], [address] [place] [address] RBC COUNT 3.22 X10E12/L Low 4.10-5.70 [facility] Comment on above: Performed By: #### Snehal CANALES, BMP #### [facility] ([id number]) [address], [address] [place] [address] WBC (Bld) [#/Vol] 9.8 10*3/uL Normal 4.0-11.0 [facility] Comment on above: Performed By: #### Snehal CANALES, BMP #### [facility] ([id number]) [address], [address] [place] [address] Glucose Glucometer (BldC) [M ass/Vol]on 11-11-2023 Glucose [Mass/Vol] 184 mg/dL High 65-99 [facility] Glucose [Mass/Vol] 179 mg/dL High 65-99 [facility] Glucose [Mass/Vol] 222 mg/dL High 65-99 [facility] Glucose [Mass/Vol] 303 mg/dL High 65-99 [facility] MAGNESIUMon 11-11-2023 Magnesium [Mass/Vol] 2.4 mg/dL Normal 1.8-2.6 [facility] Comment on above: Performed By: #### Snehal CANALES, BMP #### [facility] ([id number]) [address], [address] [place] [address] Magnesium [Mass/Vol] 1.9 mg/dL Normal 1.8-2.6 [facility] Comment on above: Performed By: #### Snehal CANALES, BMP #### [facility] ([id number]) [address], [address] [place] [address] PHOSPHORUSon 11-11-2023 Phosphate [Mass/Vol] 3.2 mg/dL Normal 2.4-4.9 [facility] Comment on above: Performed By: #### Snehal CANALES, BMP #### [facility] ([id number]) [address], [address] [place] [address] BASIC METABOLIC PANLon 11-09 Anion gap [Moles/Vol] 6 mmol/L Normal 5-15 [facility] Comment on above: Performed By: #### C ALLY, [facility], , 2776-06 ####[facility] ([id number])[address], [address] [place] [address] Calcium [Mass/Vol] 8.5 mg/dL Normal 8.5-10.5 [facility] Comment on above: Performed By: #### C ALLY, [facility], , 2776-06 ####[facility] ([id number])[address], [address], [place] [address] Chloride [Moles/Vol] 102 mmol/L Normal 98-109 [facility] Comment on above: Performed By: #### KENDALL AHUJA, , 2776-06 ####[facility] ([id number])[address], [address], [place] [address] CO2 [Moles/Vol] 26 mmol/L Normal 22-32 [facility] Comment on above: Performed By: #### Snehal CANALES, [facility], , 2776-06 ####[facility] ([id number])[address], [address] [address] Creatinine [Mass/Vol] 1.59 mg/dL High 0.60-1.30 [facility] Comment on above: Result Comment: METH OD TRACEABLE TO IDMS STANDARD Performed By: #### Snehal CANALES, KENDALL, , 2776-06 ####[facility] ([id number])[address] [address], [place] [address] GFR/1.73 sq M.predicted among non-blacks MDRD (S/P/Bld) [Vol rate/Area] 50 mL/min/{1.73_m2} Low >59 [facility] Comment on above: Result Comment: Reported eGFR is based on the CKD-EPI 2020 equation that does not use a race coefficient. Performed By: #### C ALLY, [facility], , 2776-06 ####[facility] ([id number])[address], [address], [place] [address] Glucose [Mass/Vol] 145 mg/dL High 65-99 [facility] Comment on above: Performed By: #### C ALLY, [facility], , 2776-06 ####[facility] ([id number])[address] [address] [place] [address] Potassium [Moles/Vol] 3.9 mmol/L Normal 3.5-5.0 [facility] Comment on above: Performed By: #### C ALLY, [facility], , 2776-06 ####[facility] ([id number])[address] [address] [place] [address] Sodium [Moles/Vol] 134 mmol/L Normal 134-146 [facility] Comment on above: Performed By: #### Snehal CANALES, [facility], , 2776-06 ####[facility] ([id number])[address] [address], [place] [address] Urea nitrogen [Mass/Vol] 23 mg/dL Normal 5-23 [facility] Comment on above: Performed By: #### C ALLY, [facility], , 2776-06 ####[facility] ([id number])[address] [address], [place] [address] COMPLETE BLOOD COUNTon 11-09 Erythrocyte distribution width (RBC) [Ratio] 24.9 % High 11.5-15.0 [facility] Comment on above: Performed By: #### C ALLY, [facility], , 2776-06 ####[facility] ([id number])[address] [address], [place] [address] Hematocrit (Bld) [Volume fraction] 24.5 % Low 39-49 [facility] Comment on above: Performed By: #### C ALLY, [facility], , 2776-06 ####[facility] ([id number])[address], [address], [place] [address] Hemoglobin (Bld) [Mass/Vol] 7.9 g/dL Low 13.0-17.0 [facility] Comment on above: Performed By: #### Snehal CANALES, BMP, , 2776-06 ####[facility] ([id number])[address], [address], [place] [address] MCH (RBC) [Entitic mass] 25.4 pg Low 27-34 [facility] Comment on above: Performed By: #### C ALLY, BMP, , 2776-06 ####[facility] ([id number])[address], [address], [place] [address] MCHC (RBC) [Mass/Vol] 32.4 g/dL Normal 32-36 [facility] Comment on above: Performed By: #### C ALLY, BMP, , 2776-06 ####[facility] ([id number])[address], [address], [place] [address] MCV (RBC) [Entitic vol] 78 fL Low 80-100 [facility] Comment on above: Performed By: #### Snehal CANALES, BMP, , 2776-06 ####[facility] ([id number])[address], [address], [place] [address] Platelet mean volume (Bld) [Entitic vol] 9.1 fL Normal 7-12 [facility] Comment on above: Performed By: #### Snehal BC, BMP, , 2776-06 ####[facility] ([id number])[address], [address], [place] [address] Platelets (Bld) [#/Vol] 142 10*3/uL Low 150-450 [facility] Comment on above: Performed By: #### C KENDALL CANALES, , 2776-06 ####[facility] ([id number])[address], [address] [place] [address] RBC COUNT 3.14 X10E12/L Low 4.10-5.70 [facility] Comment on above: Performed By: #### KENDALL AHUJA, , 2776-06 ####[facility] ([id number])[address], [address] [place] [address] WBC (Bld) [#/Vol] 9.7 10*3/uL Normal 4.0-11.0 [facility] Comment on above: Performed By: #### KENDALL AHUJA, , 2776-06 ####[facility] ([id number])[address], [address] [place] [address] Glucose Glucometer (BldC) [M ass/Vol]on 11-10-2023 Glucose [Mass/Vol] 168 mg/dL High 65-99 [facility] Glucose [Mass/Vol] 245 mg/dL High 65-99 [facility] Glucose [Mass/Vol] 155 mg/dL High 65-99 [facility] Glucose [Mass/Vol] 153 mg/dL High 65-99 [facility] MAGNESIUMon 11-10-2023 Magnesium [Mass/Vol] 2.2 mg/dL Normal 1.8-2.6 [facility] Comment on above: Performed By: #### Snehal CANALES BMP #### [facility] ([id number]) [address], [address] [place] [address] Magnesium [Mass/Vol] 1.8 mg/dL Normal 1.8-2.6 [facility] Comment on above: Performed By: #### KENDALL AHUJA, , 2777-1 ####[facility] ([id number])[address], [address], [place] [address] PHOSPHORUSon 11-10-2023 Phosphate [Mass/Vol] 3.1 mg/dL Normal 2.4-4.9 [facility] Comment on above: Performed By: #### Snehal BC, BMP, , 2776- ####[facility] ([id number])[address], [address], [place] [address] BASIC METABOLIC PANLon 11-08 Anion gap [Moles/Vol] 9 mmol/L Normal 5-15 [facility] Comment on above: Performed By: #### Snehal CANALES, 2639-3, BMP, 2156-, , 2776-1 ####[facility] ([id number])[address], [address], [place] [address] Calcium [Mass/Vol] 8.4 mg/dL Low 8.5-10.5 [facility] Comment on above: Performed By: #### Snehal CANALES, 2639-3, BMP, 2156-, , 2776- ####[facility] ([id number])[address], [address], [place] [address] Chloride [Moles/Vol] 104 mmol/L Normal 98-109 [facility] Comment on above: Performed By: #### Snehal CANALES, 2639-3, BMP, 2156-6, , 2776- ####[facility] ([id number])[address], [address], [place] [address] CO2 [Moles/Vol] 25 mmol/L Normal 22-32 [facility] Comment on above: Performed By: #### Snehal BC, 2639-3, BMP, 2156-6, , 2776-1 ####[facility] ([id number])[address], [address], [place] [address] Creatinine [Mass/Vol] 1.35 mg/dL High 0.60-1.30 [facility] Comment on above: Result Comment: METH OD TRACEABLE TO IDMS STANDARD Performed By: #### C ALLY, 2639-3, BMP, 2157-6, [address]-9, 2776-06 ####[facility] ([id number])[address] [address] GFR/1.73 sq M.predicted among non-blacks MDRD (S/P/Bld) [Vol rate/Area] 61 mL/min/{1.73_m2} Normal >59 [facility] Comment on above: Result Comment: Reported eGFR is based on the CKD-EPI 2020 equation that does not use a race coefficient. Performed By: #### C ALLY, 2639-3, BMP, 2156-6, , 2776-06 ####[facility] ([id number])[address], [address] [place] [address] Glucose [Mass/Vol] 217 mg/dL High 65-99 [facility] Comment on above: Performed By: #### Snehal CANALES, 2639-3, BMP, 2156-, , 2776-06 ####[facility] ([id number])[address] [address] Potassium [Moles/Vol] 4.2 mmol/L Normal 3.5-5.0 [facility] Comment on above: Performed By: #### Snehal CANALES, 2639-3, BMP, 2156-6, , 2776- ####[facility] ([id number])[address] [address] Sodium [Moles/Vol] 138 mmol/L Normal 134-146 [facility] Comment on above: Performed By: #### Snehal CANALES, 2639-3, BMP, 215-6, , 2776- ####[facility] ([id number])[address] [address] [address] Urea nitrogen [Mass/Vol] 23 mg/dL Normal 5-23 [facility] Comment on above: Performed By: #### C BC, 2639-3, BMP, 2156-11, , 1 ####[facility] ([id number])[address], [address] [address] CK [Catalytic activity/Vol]o n 11-09-2023 CPK 44 U/L Normal 24-195 [facility] Comment on above: Performed By: #### 2 157-6, 2638-3 ####[facility] ([id number])[address] [address] [place] [address] CPK 30 U/L Normal 24-195 [facility] Comment on above: Performed By: #### C BC, 2638-3, BMP, 2156-11, , 2776-06 ####[facility] ([id number])[address] [address] COMPLETE BLOOD COUNTon 11-08 Erythrocyte distribution width (RBC) [Ratio] 24.9 % High 11.5-15.0 [facility] Comment on above: Performed By: #### C BC, 9-3, BMP, 2156-11, , 2776-06 ####[facility] ([id number])[address] [place] [address] Hematocrit (Bld) [Volume fraction] 26.8 % Low 39-49 [facility] Comment on above: Performed By: #### C BC, 2639-3, BMP, 2156-, , 1 ####[facility] ([id number])[address] [address] [place] [address] Hemoglobin (Bld) [Mass/Vol] 8.7 g/dL Low 13.0-17.0 [facility] Comment on above: Performed By: #### Snehal CANALES, 2639-3, BMP, 2156-11, , 2776-06 ####[facility] ([id number])[address], [address], [place] [address] MCH (RBC) [Entitic mass] 24.8 pg Low 27-34 [facility] Comment on above: Performed By: #### Snehal CANALES, 2639-3, BMP, 2156-11, , 2776-06 ####[facility] ([id number])[address], [address], [place] [address] MCHC (RBC) [Mass/Vol] 32.6 g/dL Normal 32-36 [facility] Comment on above: Performed By: #### Snehal CANALES, 2639-3, BMP, 2156-11, , 2776-06 ####[facility] ([id number])[address], [address], [place] [address] MCV (RBC) [Entitic vol] 76 fL Low 80-100 [facility] Comment on above: Performed By: #### Snehal CANALES, 2639-3, BMP, 2156-11, , 2776-06 ####[facility] ([id number])[address], [address], [place] [address] Platelet mean volume (Bld) [Entitic vol] 9.3 fL Normal 7-12 [facility] Comment on above: Performed By: #### Snehal CANALES, 2639-3, BMP, 2156-11, , 2776-06 ####[facility] ([id number])[address], [address] [place] [address] Platelets (Bld) [#/Vol] 184 10*3/uL Normal 150-450 [facility] Comment on above: Performed By: #### C BC, 2639-3, [facility], 2156-11, , 1 ####[facility] ([id number])[address], [address] [place] [address] RBC COUNT 3.53 X10E12/L Low 4.10-5.70 [facility] Comment on above: Performed By: #### C BC, 2639-3, [facility], 2156-11, , 2776- ####[facility] ([id number])[address], [address] [place] [address] WBC (Bld) [#/Vol] 11.0 10*3/uL Normal 4.0-11.0 [facility] Comment on above: Performed By: #### C BC, 2639-3, [facility], 2156-11, , 2776-06 ####[facility] ([id number])[address], [address] [place] [address] Glucose Glucometer (BldC) [M ass/Vol]on 11-09-2023 Glucose [Mass/Vol] 243 mg/dL High 65-99 [facility] Glucose [Mass/Vol] 184 mg/dL High 65-99 [facility] Glucose [Mass/Vol] 199 mg/dL High 65-99 [facility] Glucose [Mass/Vol] 218 mg/dL High 65-99 [facility] Heparin unfractionated Chrom ogenic method Qn (PPP)on 11-09-2023 ANTI XA UFH 0.15 IU/mL Low 0.30-0.70 [facility] Comment on above: Result Comment: Opti mal time for testing is 6 hrs post dosage This test is specific for monitoring patients on UFH, and is not recommended for use with other Anti-Xa medications. Performed By: #### 3 274-8 ####[facility] ([id number])[address], [address], [place] [address] MAGNESIUMon 11-09-2023 Magnesium [Mass/Vol] 2.2 mg/dL Normal 1.8-2.6 [facility] Comment on above: Performed By: #### C BC, 2639-3, BMP, 2156-11, , 7-1 ####[facility] ([id number])[address], [address] [place] [address] Myoglobin [Mass/Vol]on 11-08 SERUM MYOGLOBIN 97.7 ng/mL Normal 17.4-105.7 [facility] Comment on above: Performed By: #### 2 157-6, 2638-3 ####[facility] ([id number])[address], [address], [place] [address] SERUM MYOGLOBIN 51.7 ng/mL Normal 17.4-105.7 [facility] Comment on above: Performed By: #### C BC, 2639-3, BMP, 2156-11, , 1 ####[facility] ([id number])[address], [address] [place] [address] PHOSPHORUSon 11-09-2023 Phosphate [Mass/Vol] 4.4 mg/dL Normal 2.4-4.9 [facility] Comment on above: Performed By: #### C BC, 2639-3, BMP, 2156-11, , 2777-1 ####[facility] ([id number])[address], [address], [place] [address] BASIC METABOLIC PANLon 11-07 Anion gap [Moles/Vol] 9 mmol/L Normal 5-15 [facility] Comment on above: Performed By: #### P INR #### [facility] ([id number]) [address], [address] [place] [address] Calcium [Mass/Vol] 8.4 mg/dL Low 8.5-10.5 [facility] Comment on above: Performed By: #### P INR #### [facility] ([id number]) [address], [address] [place] [address] Chloride [Moles/Vol] 106 mmol/L Normal 98-109 [facility] Comment on above: Performed By: #### P INR #### [facility] ([id number]) [address], [address] [place] [address] CO2 [Moles/Vol] 24 mmol/L Normal 22-32 [facility] Comment on above: Performed By: #### P INR #### [facility] ([id number]) [address], [address] [place] [address] Creatinine [Mass/Vol] 1.30 mg/dL Normal 0.60-1.30 [facility] Comment on above: Result Comment: METH OD TRACEABLE TO IDMS STANDARD Performed By: #### P INR #### [facility] ([id number]) [address], [address] [place] [address] GFR/1.73 sq M.predicted among non-blacks MDRD (S/P/Bld) [Vol rate/Area] 64 mL/min/{1.73_m2} Normal >59 [facility] Comment on above: Result Comment: Reported eGFR is based on the CKD-EPI 2020 equation that does not use a race coefficient. Performed By: #### P INR #### [facility] ([id number]) [address], [address] [place] [address] Glucose [Mass/Vol] 163 mg/dL High 65-99 [facility] Comment on above: Performed By: #### P INR #### [facility] ([id number]) [address], [address] [place] [address] Potassium [Moles/Vol] 4.1 mmol/L Normal 3.5-5.0 [facility] Comment on above: Performed By: #### P INR #### [facility] ([id number]) [address] [place] [address] Sodium [Moles/Vol] 139 mmol/L Normal 134-146 [facility] Comment on above: Performed By: #### P INR #### [facility] ([id number]) [address] [place] [address] Urea nitrogen [Mass/Vol] 23 mg/dL Normal 5-23 [facility] Comment on above: Performed By: #### P INR #### [facility] ([id number]) [address], [address] [place] [address] Anion gap [Moles/Vol] 9 mmol/L Normal 5-15 [facility] Comment on above: Performed By: #### C BC, BMP #### [facility] ([id number]) [address], [address] [place] [address] Calcium [Mass/Vol] 8.8 mg/dL Normal 8.5-10.5 [facility] Comment on above: Performed By: #### C BC, BMP #### [facility] ([id number]) [address], [address] [place] [address] Chloride [Moles/Vol] 104 mmol/L Normal 98-109 [facility] Comment on above: Performed By: #### C BC, BMP #### [facility] ([id number]) [address], [address] [place] [address] CO2 [Moles/Vol] 25 mmol/L Normal 22-32 [facility] Comment on above: Performed By: #### C BC, BMP #### [facility] ([id number]) [address] [place] [address] Creatinine [Mass/Vol] 1.70 mg/dL High 0.60-1.30 [facility] Comment on above: Result Comment: METH OD TRACEABLE TO IDMS STANDARD Performed By: #### C ALLY, BMP #### [facility] ([id number]) [address], [address] [place] [address] GFR/1.73 sq M.predicted among non-blacks MDRD (S/P/Bld) [Vol rate/Area] 46 mL/min/{1.73_m2} Low >59 [facility] Comment on above: Result Comment: Reported eGFR is based on the CKD-EPI 2020 equation that does not use a race coefficient. Performed By: #### C ALLY, BMP #### [facility] ([id number]) [address], [address] [place] [address] Glucose [Mass/Vol] 111 mg/dL High 65-99 [facility] Comment on above: Performed By: #### Snehal CANALES, BMP #### [facility] ([id number]) [address], [address] [place] [address] Potassium [Moles/Vol] 3.8 mmol/L Normal 3.5-5.0 [facility] Comment on above: Performed By: #### Snehal CANALES, BMP #### [facility] ([id number]) [address], [address] [place] [address] Sodium [Moles/Vol] 138 mmol/L Normal 134-146 [facility] Comment on above: Performed By: #### Snehal CANALES, BMP #### [facility] ([id number]) [address], [address] [place] [address] Urea nitrogen [Mass/Vol] 28 mg/dL High 5-23 [facility] Comment on above: Performed By: #### Snehal CANALES, BMP #### [facility] ([id number]) [address], [address] [place] [address] CK [Catalytic activity/Vol]o n 11-08-2023 CPK 26 U/L Normal 24-195 [facility] Comment on above: Performed By: #### P INR #### [facility] ([id number]) [address] [address] [place] [address] COMPLETE BLOOD COUNTon 11-07 Erythrocyte distribution width (RBC) [Ratio] 24.8 % High 11.5-15.0 [facility] Comment on above: Performed By: #### P INR #### [facility] ([id number]) [address], [address] [place] [address] Hematocrit (Bld) [Volume fraction] 29.3 % Low 39-49 [facility] Comment on above: Performed By: #### P INR #### [facility] ([id number]) [address] [address] [place] [address] Hemoglobin (Bld) [Mass/Vol] 9.6 g/dL Low 13.0-17.0 [facility] Comment on above: Performed By: #### P INR #### [facility] ([id number]) [address], [address] [place] [address] MCH (RBC) [Entitic mass] 24.9 pg Low 27-34 [facility] Comment on above: Performed By: #### P INR #### [facility] ([id number]) [address], [address] [place] [address] MCHC (RBC) [Mass/Vol] 32.7 g/dL Normal 32-36 [facility] Comment on above: Performed By: #### P INR #### [facility] ([id number]) [address] [place] [address] MCV (RBC) [Entitic vol] 76 fL Low 80-100 [facility] Comment on above: Performed By: #### P INR #### [facility] ([id number]) [address], [address] [place] [address] Platelet mean volume (Bld) [Entitic vol] 8.7 fL Normal 7-12 [facility] Comment on above: Performed By: #### P INR #### [facility] ([id number]) [address] [place] [address] Platelets (Bld) [#/Vol] 169 10*3/uL Normal 150-450 [facility] Comment on above: Performed By: #### P INR #### [facility] ([id number]) [address], [address] [place] [address] RBC COUNT 3.85 X10E12/L Low 4.10-5.70 [facility] Comment on above: Performed By: #### P INR #### [facility] ([id number]) [address], [address] [place] [address] WBC (Bld) [#/Vol] 13.5 10*3/uL High 4.0-11.0 [facility] Comment on above: Performed By: #### P INR #### [facility] ([id number]) [address], [address] [place] [address] Erythrocyte distribution width (RBC) [Ratio] 25.2 % High 11.5-15.0 [facility] Comment on above: Performed By: #### C BC, BMP #### [facility] ([id number]) [address], [address] [place] [address] Hematocrit (Bld) [Volume fraction] 33.0 % Low 39-49 [facility] Comment on above: Performed By: #### C BC, BMP #### [facility] ([id number]) [address] [address] [place] [address] Hemoglobin (Bld) [Mass/Vol] 10.8 g/dL Low 13.0-17.0 [facility] Comment on above: Performed By: #### C BC, BMP #### [facility] ([id number]) [address], [address] [place] [address] MCH (RBC) [Entitic mass] 25.0 pg Low 27-34 [facility] Comment on above: Performed By: #### C ALLY, BMP #### [facility] ([id number]) [address], [address] [place] [address] MCHC (RBC) [Mass/Vol] 32.8 g/dL Normal 32-36 [facility] Comment on above: Performed By: #### C ALLY, BMP #### [facility] ([id number]) [address], [address] [place] [address] MCV (RBC) [Entitic vol] 76 fL Low 80-100 [facility] Comment on above: Performed By: #### Snehal CANALES, BMP #### [facility] ([id number]) [address], [address] [place] [address] Platelet mean volume (Bld) [Entitic vol] 8.8 fL Normal 7-12 [facility] Comment on above: Performed By: #### Snehal CANALES, BMP #### [facility] ([id number]) [address], [address] [place] [address] Platelets (Bld) [#/Vol] 172 10*3/uL Normal 150-450 [facility] Comment on above: Performed By: #### Snehal CANALES, BMP #### [facility] ([id number]) [address], [address] [place] [address] RBC COUNT 4.33 X10E12/L Normal 4.10-5.70 [facility] Comment on above: Performed By: #### Snehal CANALES, BMP #### [facility] ([id number]) [address], [address] [place] [address] WBC (Bld) [#/Vol] 9.3 10*3/uL Normal 4.0-11.0 [facility] Comment on above: Performed By: #### C BC, BMP #### [facility] ([id number]) [address], [address] [place] [address] Glucose Glucometer (BldC) [M ass/Vol]on 11-08-2023 Glucose [Mass/Vol] 162 mg/dL High 65-99 [facility] Glucose [Mass/Vol] 96 mg/dL Normal 65-99 [facility] Glucose [Mass/Vol] 142 mg/dL High 65-99 [facility] Glucose [Mass/Vol] 114 mg/dL High 65-99 [facility] Lactate (P ekaterina) [Moles/Vol]o n 11-08-2023 LACTATE W/REFLEX 1.0 mmol/L Normal 0.4-2.0 [facility] Comment on above: Result Comment: Result did not trigger repeat Lactate, re-order if needed. Performed By: #### P INR #### [facility] ([id number]) [address] [place] [address] MAGNESIUMon 11-08-2023 Magnesium [Mass/Vol] 1.7 mg/dL Low 1.8-2.6 [facility] Comment on above: Performed By: #### P INR #### [facility] ([id number]) [address], [address] [place] [address] Myoglobin [Mass/Vol]on 11-07 SERUM MYOGLOBIN 33.1 ng/mL Normal 17.4-105.7 [facility] Comment on above: Performed By: #### P INR #### [facility] ([id number]) [address] [place] [address] PHOSPHORUSon 11-08-2023 Phosphate [Mass/Vol] 4.0 mg/dL Normal 2.4-4.9 [facility] Comment on above: Performed By: #### P INR #### [facility] ([id number]) [address], [address] [place] [address] PROTIME AND INRon 11-08-2023 INR Coag (PPP) [Relative time] 1.3 {INR} High 0.8-1.1 [facility] Comment on above: Performed By: #### P INR #### [facility] ([id number]) [address], [address] [place] [address] PT Coag (PPP) [Time] 14.7 s High 9.8-13.2 [facility] Comment on above: Performed By: #### P INR #### [facility] ([id number]) [address] [place] [address] RAPID CARDIACon 11-08-2023 COURTNEY'S TEST Normal [facility] Comment on above: Performed By: #### A FAB5 #### [facility] ([id number]) [address] [place] [address] Base excess Calc (Bld) [Moles/Vol] 0.1 mmol/L Normal 0.0-2.0 [facility] Comment on above: Performed By: #### A FAB5 #### [facility] ([id number]) [address] [place] [address] Body temperature 98.6 [degF] Normal 37.0 [facility] Comment on above: Performed By: #### A FAB5 #### [facility] ([id number]) [address] [place] [address] Glucose [Mass/Vol] 117 mg/dL High 65-99 [facility] Comment on above: Performed By: #### A FAB5 #### [facility] ([id number]) [address] [place] [address] HCO3 (Bld) [Moles/Vol] 24.8 mmol/L Normal 22-26 P [facility] Comment on above: Performed By: #### A FAB5 #### [facility] ([id number]) [address] [place] [address] Hematocrit (Bld) [Volume fraction] 31 % Low 39-49 [facility] Comment on above: Performed By: #### A FAB5 #### [facility] ([id number]) [address] [place] [address] Hemoglobin (Bld) [Mass/Vol] 10.2 g/dL Low 13.0-17.0 [facility] Comment on above: Performed By: #### A FAB5 #### [facility] ([id number]) [address] [place] [address] INSP. O2 CONC. 100 % Normal [facility] Comment on above: Performed By: #### A FAB5 #### [facility] ([id number]) [address] [place] [address] IONIZED CALCIUM 4.8 mg/dL Normal 4.5-5.3 [facility] Comment on above: Performed By: #### A FAB5 #### [facility] ([id number]) [address] [place] [address] Oxygen (Bld) [Partial pressure] 167 mm[Hg] High 80-100 [facility] Comment on above: Performed By: #### A FAB5 #### [facility] ([id number]) [address] [place] [address] Oxygen saturation in Blood 100.8 % Normal >90 [facility] Comment on above: Performed By: #### A FAB5 #### [facility] ([id number]) [address] [place] [address] PCO2 39.7 MMHG Normal 35-45 [facility] Comment on above: Performed By: #### A FAB5 #### [facility] ([id number]) [address] [place] [address] pH (Bld) 7.404 [pH] Normal 7.350-7.45 0 [facility] Comment on above: Performed By: #### A FAB5 #### [facility] ([id number]) [address] [place] [address] Potassium [Moles/Vol] 3.8 mmol/L Normal 3.5-5.0 [facility] Comment on above: Performed By: #### A FAB5 #### [facility] ([id number]) [address] [place] [address] SAMPLE SITE KECIA Normal [facility] Comment on above: Performed By: #### A FAB5 #### [facility] ([id number]) [address] [place] [address] SAMPLE TYPE Arterial Normal [facility] Comment on above: Performed By: #### A FAB5 #### [facility] ([id number]) [address] [place] [address] RAPID CARDIAC W/ NAon 2023 COURTNEY'S TEST Normal [facility] Comment on above: Performed By: #### P INR #### [facility] ([id number]) [address] [place] [address] Base excess Calc (Bld) [Moles/Vol] 0.2 mmol/L Normal 0.0-2.0 [facility] Comment on above: Performed By: #### P INR #### [facility] ([id number]) [address] [place] [address] Body temperature 98.6 [degF] Normal 37.0 [facility] Comment on above: Performed By: #### P INR #### [facility] ([id number]) [address] [place] [address] Glucose [Mass/Vol] 125 mg/dL High 65-99 [facility] Comment on above: Performed By: #### P INR #### [facility] ([id number]) [address] [place] [address] HCO3 (Bld) [Moles/Vol] 25.3 mmol/L Normal 22-26 [facility] Comment on above: Performed By: #### P INR #### [facility] ([id number]) [address] [place] [address] Hematocrit (Bld) [Volume fraction] 31 % Low 39-49 [facility] Comment on above: Performed By: #### P INR #### [facility] ([id number]) [address] [place] [address] Hemoglobin (Bld) [Mass/Vol] 10.0 g/dL Low 13.0-17.0 [facility] Comment on above: Performed By: #### P INR #### [facility] ([id number]) [address] [place] [address] INSP. O2 CONC. 50 % Normal [facility] Comment on above: Performed By: #### P INR #### [facility] ([id number]) [address], [address] [place] [address] IONIZED CALCIUM 4.7 mg/dL Normal 4.5-5.3 [facility] Comment on above: Performed By: #### P INR #### [facility] ([id number]) [address] [place] [address] Oxygen (Bld) [Partial pressure] 131 mm[Hg] High 80-100 [facility] Comment on above: Performed By: #### P INR #### [facility] ([id number]) [address], [address] [place] [address] Oxygen saturation in Blood 99.9 % Normal >90 [facility] Comment on above: Performed By: #### P INR #### [facility] ([id number]) [address], [address] [place] [address] PCO2 42.7 MMHG Normal 35-45 [facility] Comment on above: Performed By: #### P INR #### [facility] ([id number]) [address] [place] [address] pH (Bld) 7.381 [pH] Normal 7.350-7.45 0 [facility] Comment on above: Performed By: #### P INR #### [facility] ([id number]) [address], [address] [place] [address] Potassium [Moles/Vol] 3.7 mmol/L Normal 3.5-5.0 [facility] Comment on above: Performed By: #### P INR #### [facility] ([id number]) [address], [address] [place] [address] SAMPLE SITE KECIA Normal [facility] Comment on above: Performed By: #### P INR #### [facility] ([id number]) [address], [address] [place] [address] SAMPLE TYPE Arterial Normal [facility] Comment on above: Performed By: #### P INR #### [facility] ([id number]) [address], [address] [place] [address] Sodium [Moles/Vol] 139 mmol/L Normal 134-146 [facility] Comment on above: Performed By: #### P INR #### [facility] ([id number]) [address], [address] [place] [address] aPTT Coag (PPP) [Time]on aPTT Coag (Bld) [Time] 30 s Normal 26-37 [facility] Comment on above: Performed By: #### P INR #### [facility] ([id number]) [address] [address] [address] [place] [address] Glucose Glucometer (BldC) [M ass/Vol]on 11-07-2023 Glucose [Mass/Vol] 150 mg/dL High 65-99 [facility] Glucose [Mass/Vol] 58 mg/dL Low 65-99 [facility] POC [id number] 11-07-2023 Chloride [Moles/Vol] 98 mmol/L Normal 98-109 [facility] Comment on above: Performed By: #### I [facility] #### [facility] ([id number]) [address] [place] [address] CO2 [Moles/Vol] 31 mmol/L Normal 22-32 [facility] Comment on above: Performed By: #### I [facility] #### [facility] ([id number]) [address] [place] [address] Creatinine [Mass/Vol] 1.9 mg/dL High 0.7-1.2 [facility] Comment on above: Result Comment: METH OD TRACEABLE TO IDMS STANDARD Performed By: #### I [facility] #### [facility] ([id number]) [address] [place] [address] GFR/1.73 sq M.predicted among non-blacks MDRD (S/P/Bld) [Vol rate/Area] 40 mL/min/{1.73_m2} Low >59 [facility] Comment on above: Result Comment: Reported eGFR is based on the CKD-EPI 2020 equation that does not use a race coefficient. Performed By: #### I [facility] #### [facility] ([id number]) [address] [place] [address] Glucose [Mass/Vol] 72 mg/dL Normal 65-99 [facility] Comment on above: Performed By: #### I [facility] #### [facility] ([id number]) [address] [place] [address] Potassium [Moles/Vol] 3.6 mmol/L Normal 3.5-5.0 [facility] Comment on above: Performed By: #### I [facility] #### [facility] ([id number]) [address] [place] [address] Sodium [Moles/Vol] 139 mmol/L Normal 134-146 [facility] Comment on above: Performed By: #### I [facility] #### [facility] ([id number]) [address] [place] [address] Urea nitrogen [Mass/Vol] 31 mg/dL High 6-23 [facility] Comment on above: Performed By: #### I [facility] #### [facility] ([id number]) [address] [place] [address] PROTIME AND INRon 11-07-2023 INR Coag (PPP) [Relative time] 1.3 {INR} High 0.8-1.1 [facility] Comment on above: Performed By: #### P INR #### [facility] ([id number]) [address], [address] [place] [address] PT Coag (PPP) [Time] 14.5 s High 9.8-13.2 [facility] Comment on above: Performed By: #### P INR #### [facility] ([id number]) [address] [facility], [address] [place] [address] ECG 12 Leadon 10-24-2023 [facility] Work Phone: Consent for Treatmenton 10-04 Consent for Treatment [id number]#[id number] Normal 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 Normal [facility] Comment on above: Result Comment: [...] MD Transcribed by: HASEEB Technologist: TARAN [place] [facility] CHEMISTRYOrdered By: SYSTEM SYSTEM on [...] 370 Contrast amount in ml's: 150 Normal [facility] Consent for Treatmenton 10-03 Consent for Treatment [id number]#[id number] Normal [facility] Creatinineon 10-19-2023 Creatinine [Mass/Vol] 1.6 mg/dL High 0.5-1.3 [facility] Comment on above: Performed By: #### 2 [id number] #### [facility] [address] [place] [address] Physician Orderon 10-19-2023 Physician Order [id number]#[id number] Normal [facility] eGFRon 10-19-2023 eGFR 50 mL/min/1.73 m2 Low >=59 [facility] Comment on above: Order Comment: Order added by Discern Expert. Performed By: #### 1 [id number] #### [facility] [address] [place] [address] Outside Progress Noteon 10-03 Outside Progress Note [id number]#1.00TIFF Normal [facility] Physician Orderon 10-18-2023 Physician Order [id number]#1.00TIF F Normal [facility] Physician Order [id number]#1.00TIFF Normal [facility] Basophils Auto (Bld) [#/Vol] on [...] width (RBC) [Ratio] 19.9 % High 11.0-15.0 [facility] Estimated glomerular filtrat ion rate (GFR) non- Americanon 10-06-2023 GFR/1.73 sq M.predicted among non-blacks MDRD (S/P/Bld) [Vol rate/Area] 42 mL/min/{1.73_m2} Low >=60 [facility] Globulin Calc (S) [Mass/Vol] on 10-06-2023 Globulin (S) [Mass/Vol] 4.3 g/dL [facility] Hematocrit Auto (Bld) [Volum e fraction]on 10-06-2023 Hematocrit (Bld) [Volume fraction] 28.3 % Low 42.0-54.0 [facility] Hemoglobin [Mass/volume] in Bloodon 10-06-2023 Hemoglobin (Bld) [Mass/Vol] 8.4 g/dL Low 14.0-18.0 [facility] - Chemistry and C hemistry - challengeon 10-06-2023 Albumin [Mass/Vol] 2.1 g/dL Low 3.4-5.0 [facility] ALP [Catalytic activity/Vol] 133 U/L High 46-116 [facility] ALT [Catalytic activity/Vol] 18 U/L 16-63 [facility] AST [Catalytic activity/Vol] 20 U/L 15-37 [facility] Bilirubin [Mass/Vol] 0.3 mg/dL 0.2-1.0 [facility] Calcium [Mass/Vol] 9.4 mg/dL 8.5-10.1 [facility] Chloride [Moles/Vol] 103 mmol/L 98-107 [facility] CO2 [Moles/Vol] 23.7 mmol/L 21.0-32.0 [facility] Creatinine [Mass/Vol] 1.67 mg/dL High 0.70-1.30 [facility] GFR/1.73 sq M.predicted MDRD (S/P/Bld) [Vol rate/Area] 52 mL/min/{1.73_m2} Low >=60 [facility] Glucose [Mass/Vol] 91 mg/dL 74-106 [facility] Magnesium [Mass/Vol] 1.6 mg/dL Low 1.8-2.4 [facility] Potassium [Moles/Vol] 4.8 mmol/L 3.5-5.1 [facility] Protein [Mass/Vol] 6.4 g/dL 6.4-8.2 [facility] Sodium [Moles/Vol] 136 mmol/L 136-145 [facility] Urea nitrogen [Mass/Vol] 29.0 mg/dL High 7.0-18.0 [facility] Urea nitrogen/Creatinine [Mass ratio] 17.4 mg/mg [facility] Laboratory - Hematology and Cell countson 10-06-2023 ESR (Bld) [Velocity] mm/h High <=20 [facility] Immature granulocytes/100 WBC (Bld) 1.5 % High 0.0-0.5 [facility] Leukocytes [#/volume] correc jorge for nucleated erythrocytes in Blood by Automated counon 10-06-2023 WBC corrected for nucl RBC Auto (Bld) [#/Vol] 11.6 10 3/uL High 4.0-11.0 [facility] Lymphocytes Auto (Bld) [#/Vo l]on 10-06-2023 Lymphocytes (Bld) [#/Vol] 1.5 10 3/uL 1.2-3.8 [facility] Lymphocytes/100 WBC Auto (Bl d)on 10-06-2023 Lymphocytes/100 WBC (Bld) 12.9 % Low 20.5-60.0 [facility] MCH Auto (RBC) [Entitic mass ]on 10-06-2023 MCH (RBC) [Entitic mass] 22.5 pg Low 25.9-34.0 [facility] MCHC Auto (RBC) [Mass/Vol]on 10-06-2023 MCHC (RBC) [Mass/Vol] 29.7 g/dL Low 29.9-35.2 [facility] MCV Auto (RBC) [Entitic vol] on 10-06-2023 MCV (RBC) [Entitic vol] 75.9 fL Low 80.0-94.0 [facility] Monocytes Auto (Bld) [#/Vol] on 10-06-2023 Monocytes (Bld) [#/Vol] 1.3 10 3/uL High 0.3-0.8 [facility] Monocytes/100 WBC Auto (Bld) on 10-06-2023 Monocytes/100 WBC (Bld) 10.9 % 1.7-12.0 [facility] Neutrophils Auto (Bld) [#/Vo l]on 10-06-2023 Neutrophils (Bld) [#/Vol] 8.4 10 3/uL High 1.4-6.5 [facility] Neutrophils/100 WBC Auto (Bl d)on 10-06-2023 Neutrophils/100 WBC (Bld) 72.5 % 43.0-75.0 [facility] No Panel Informationon 10-05 Eosinophils # (Auto) 0.2 10 3/uL 0.0-0.7 [facility] Immature Granulocyte # (Auto) 0.17 10 3/uL High 0.00-0.03 [facility] Platelet mean volume Auto (B ld) [Entitic vol]on 10-06-2023 Platelet mean volume (Bld) [Entitic vol] 10.3 fL 9.5-13.5 [facility] Platelets Auto (Bld) [#/Vol] on 10-06-2023 Platelets (Bld) [#/Vol] 233 10 3/uL 150-450 [facility] RBC Auto (Bld) [#/Vol]on RBC (Bld) [#/Vol] 3.73 10 6/uL Low 4.70-6.10 [facility] Serum or plasma albumin/glob ulin mass ratioon 10-06-2023 Albumin/Globulin [Mass ratio] 0.5 {ratio} [facility] Serum or plasma anion gap de terminationon 10-06-2023 Anion gap [Moles/Vol] 14.1 [facility] Basophils Auto (Bld) [#/Vol] on 10-05-2023 [...] width (RBC) [Ratio] 19.6 % High 11.0-15.0 [facility] Estimated glomerular filtrat ion rate (GFR) non- Americanon 10-05-2023 GFR/1.73 sq M.predicted among non-blacks MDRD (S/P/Bld) [Vol rate/Area] 41 mL/min/{1.73_m2} Low >=60 [facility] Globulin Calc (S) [Mass/Vol] on 10-05-2023 Globulin (S) [Mass/Vol] 4.7 g/dL [facility] Hematocrit Auto (Bld) [Volum e fraction]on 10-05-2023 Hematocrit (Bld) [Volume fraction] 29.9 % Low 42.0-54.0 [facility] Hemoglobin [Mass/volume] in Bloodon 10-05-2023 Hemoglobin (Bld) [Mass/Vol] 9.0 g/dL Low 14.0-18.0 [facility] - Chemistry and C hemistry - challengeon 10-05-2023 Albumin [Mass/Vol] 2.2 g/dL Low 3.4-5.0 [facility] ALP [Catalytic activity/Vol] 140 U/L High 46-116 [facility] ALT [Catalytic activity/Vol] 18 U/L 16-63 [facility] AST [Catalytic activity/Vol] 22 U/L 15-37 [facility] Bilirubin [Mass/Vol] 0.5 mg/dL 0.2-1.0 [facility] Calcium [Mass/Vol] 9.2 mg/dL 8.5-10.1 [facility] Chloride [Moles/Vol] 100 mmol/L 98-107 [facility] CO2 [Moles/Vol] 22.6 mmol/L 21.0-32.0 [facility] Creatinine [Mass/Vol] 1.74 mg/dL High 0.70-1.30 [facility] GFR/1.73 sq M.predicted MDRD (S/P/Bld) [Vol rate/Area] 49 mL/min/{1.73_m2} Low >=60 [facility] Glucose [Mass/Vol] 162 mg/dL High 74-106 [facility] Magnesium [Mass/Vol] 1.7 mg/dL Low 1.8-2.4 [facility] Potassium [Moles/Vol] 5.3 mmol/L High 3.5-5.1 [facility] Protein [Mass/Vol] 6.9 g/dL 6.4-8.2 [facility] Sodium [Moles/Vol] 133 mmol/L Low 136-145 [facility] Urea nitrogen [Mass/Vol] 30.0 mg/dL High 7.0-18.0 [facility] Urea nitrogen/Creatinine [Mass ratio] 17.2 mg/mg [facility] - Hematology and Cell countson 10-05-2023 ESR (Bld) [Velocity] 130 mm/h High <=20 [facility] Immature granulocytes/100 WBC (Bld) 1.3 % High 0.0-0.5 [facility] Leukocytes [#/volume] correc jorge for nucleated erythrocytes in Blood by Automated counon 10-05-2023 WBC corrected for nucl RBC Auto (Bld) [#/Vol] 12.6 10 3/uL High 4.0-11.0 [facility] Lymphocytes Auto (Bld) [#/Vo l]on 10-05-2023 Lymphocytes (Bld) [#/Vol] 1.3 10 3/uL 1.2-3.8 [facility] Lymphocytes/100 WBC Auto (Bl d)on 10-05-2023 Lymphocytes/100 WBC (Bld) 10.1 % Low 20.5-60.0 [facility] MCH Auto (RBC) [Entitic mass ]on 10-05-2023 MCH (RBC) [Entitic mass] 22.7 pg Low 25.9-34.0 [facility] MCHC Auto (RBC) [Mass/Vol]on 10-05-2023 MCHC (RBC) [Mass/Vol] 30.1 g/dL 29.9-35.2 [facility] MCV Auto (RBC) [Entitic vol] on 10-05-2023 MCV (RBC) [Entitic vol] 75.3 fL Low 80.0-94.0 [facility] Monocytes Auto (Bld) [#/Vol] on 10-05-2023 Monocytes (Bld) [#/Vol] 1.4 10 3/uL High 0.3-0.8 [facility] Monocytes/100 WBC Auto (Bld) on 10-05-2023 Monocytes/100 WBC (Bld) 10.9 % 1.7-12.0 [facility] Neutrophils Auto (Bld) [#/Vo l]on 10-05-2023 Neutrophils (Bld) [#/Vol] 9.3 10 3/uL High 1.4-6.5 [facility] Neutrophils/100 WBC Auto (Bl d)on 10-05-2023 Neutrophils/100 WBC (Bld) 73.8 % 43.0-75.0 [facility] No Panel Informationon 10-04 Eosinophils # (Auto) 0.4 10 3/uL 0.0-0.7 [facility] Immature Granulocyte # (Auto) 0.16 10 3/uL High 0.00-0.03 [facility] Platelet mean volume Auto (B ld) [Entitic vol]on 10-05-2023 Platelet mean volume (Bld) [Entitic vol] 11.3 fL 9.5-13.5 [facility] Platelets Auto (Bld) [#/Vol] on 10-05-2023 Platelets (Bld) [#/Vol] 203 10 3/uL 150-450 [facility] RBC Auto (Bld) [#/Vol]on RBC (Bld) [#/Vol] 3.97 10 6/uL Low 4.70-6.10 [facility] Serum or plasma albumin/glob ulin mass ratioon 10-05-2023 Albumin/Globulin [Mass ratio] 0.5 {ratio} [facility] Serum or plasma anion gap de terminationon 10-05-2023 Anion gap [Moles/Vol] 15.7 [facility] Basophils Auto (Bld) [#/Vol] on 10-04-2023 [...] width (RBC) [Ratio] 19.6 % High 11.0-15.0 [facility] Estimated glomerular filtrat ion rate (GFR) non- Americanon 10-04-2023 GFR/1.73 sq M.predicted among non-blacks MDRD (S/P/Bld) [Vol rate/Area] 44 mL/min/{1.73_m2} Low >=60 [facility] Globulin Calc (S) [Mass/Vol] on 10-04-2023 Globulin (S) [Mass/Vol] 4.3 g/dL [facility] Hematocrit Auto (Bld) [Volum e fraction]on 10-04-2023 Hematocrit (Bld) [Volume fraction] 26.8 % Low 42.0-54.0 [facility] Hemoglobin [Mass/volume] in Bloodon 10-04-2023 Hemoglobin (Bld) [Mass/Vol] 7.9 g/dL Low 14.0-18.0 [facility] - Chemistry and C hemistry - challengeon 10-04-2023 Albumin [Mass/Vol] 1.9 g/dL Low 3.4-5.0 [facility] ALP [Catalytic activity/Vol] 135 U/L High 46-116 [facility] ALT [Catalytic activity/Vol] 16 U/L 16-63 [facility] AST [Catalytic activity/Vol] 19 U/L 15-37 [facility] Bilirubin [Mass/Vol] 0.4 mg/dL 0.2-1.0 [facility] Calcium [Mass/Vol] 7.8 mg/dL Low 8.5-10.1 [facility] Chloride [Moles/Vol] 102 mmol/L 98-107 [facility] CO2 [Moles/Vol] 25.0 mmol/L 21.0-32.0 [facility] Creatinine [Mass/Vol] 1.61 mg/dL High 0.70-1.30 [facility] GFR/1.73 sq M.predicted MDRD (S/P/Bld) [Vol rate/Area] 54 mL/min/{1.73_m2} Low >=60 [facility] Glucose [Mass/Vol] 136 mg/dL High 74-106 [facility] Magnesium [Mass/Vol] 1.7 mg/dL Low 1.8-2.4 [facility] Potassium [Moles/Vol] 5.1 mmol/L 3.5-5.1 [facility] Protein [Mass/Vol] 6.2 g/dL Low 6.4-8.2 [facility] Sodium [Moles/Vol] 134 mmol/L Low 136-145 [facility] Urea nitrogen [Mass/Vol] 25.0 mg/dL High 7.0-18.0 [facility] Urea nitrogen/Creatinine [Mass ratio] 15.5 mg/mg [facility] - Hematology and Cell countson 10-04-2023 ESR (Bld) [Velocity] 117 mm/h High <=20 [facility] Immature granulocytes/100 WBC (Bld) 0.9 % High 0.0-0.5 [facility] Leukocytes [#/volume] correc jorge for nucleated erythrocytes in Blood by Automated counon 10-04-2023 WBC corrected for nucl RBC Auto (Bld) [#/Vol] 11.5 10 3/uL High 4.0-11.0 [facility] Lymphocytes Auto (Bld) [#/Vo l]on 10-04-2023 Lymphocytes (Bld) [#/Vol] 1.3 10 3/uL 1.2-3.8 [facility] Lymphocytes/100 WBC Auto (Bl d)on 10-04-2023 Lymphocytes/100 WBC (Bld) 10.9 % Low 20.5-60.0 [facility] MCH Auto (RBC) [Entitic mass ]on 10-04-2023 MCH (RBC) [Entitic mass] 22.4 pg Low 25.9-34.0 [facility] MCHC Auto (RBC) [Mass/Vol]on 10-04-2023 MCHC (RBC) [Mass/Vol] 29.5 g/dL Low 29.9-35.2 [facility] MCV Auto (RBC) [Entitic vol] on 10-04-2023 MCV (RBC) [Entitic vol] 75.9 fL Low 80.0-94.0 [facility] Monocytes Auto (Bld) [#/Vol] on 10-04-2023 Monocytes (Bld) [#/Vol] 1.4 10 3/uL High 0.3-0.8 [facility] Monocytes/100 WBC Auto (Bld) on 10-04-2023 Monocytes/100 WBC (Bld) 12.4 % High 1.7-12.0 [facility] Neutrophils Auto (Bld) [#/Vo l]on 10-04-2023 Neutrophils (Bld) [#/Vol] 8.3 10 3/uL High 1.4-6.5 [facility] Neutrophils/100 WBC Auto (Bl d)on 10-04-2023 Neutrophils/100 WBC (Bld) 71.7 % 43.0-75.0 [facility] No Panel Informationon 10-03 Eosinophils # (Auto) 0.4 10 3/uL 0.0-0.7 [facility] Immature Granulocyte # (Auto) 0.10 10 3/uL High 0.00-0.03 [facility] Platelet mean volume Auto (B ld) [Entitic vol]on 10-04-2023 Platelet mean volume (Bld) [Entitic vol] 11.5 fL 9.5-13.5 [facility] Platelets Auto (Bld) [#/Vol] on 10-04-2023 Platelets (Bld) [#/Vol] 154 10 3/uL 150-450 [facility] RBC Auto (Bld) [#/Vol]on RBC (Bld) [#/Vol] 3.53 10 6/uL Low 4.70-6.10 [facility] Serum or plasma albumin/glob ulin mass ratioon 10-04-2023 Albumin/Globulin [Mass ratio] 0.4 {ratio} [facility] Serum or plasma anion gap de terminationon 10-04-2023 Anion gap [Moles/Vol] 12.1 mmol/L Fi [facility] Basophils Auto (Bld) [#/Vol] on 10-03-2023 Basophils (Bld) [#/Vol] 0.1 10 3/uL 0.0-0.1 [facility] Basophils/100 WBC Auto (Bld) on 10-03-2023 Basophils/100 WBC (Bld) 0.7 % 0.2-2.0 [facility] Eosinophils/100 WBC Auto (Bl d)on 10-03-2023 Eosinophils/100 WBC (Bld) 2.7 % 0.9-7.0 [facility] Erythrocyte distribution wid th Auto (RBC) [Ratio]on 10-03-2023 Erythrocyte distribution width (RBC) [Ratio] 19.2 % High 11.0-15.0 [facility] Estimated glomerular filtrat ion rate (GFR) non- Americanon 10-03-2023 GFR/1.73 sq M.predicted among non-blacks MDRD (S/P/Bld) [Vol rate/Area] 46 mL/min/{1.73_m2} Low >=60 [facility] Globulin Calc (S) [Mass/Vol] on 10-03-2023 Globulin (S) [Mass/Vol] 4.1 g/dL [facility] Hematocrit Auto (Bld) [Volum e fraction]on 10-03-2023 Hematocrit (Bld) [Volume fraction] 26.4 % Low 42.0-54.0 [facility] Hemoglobin [Mass/volume] in Bloodon 10-03-2023 Hemoglobin (Bld) [Mass/Vol] 8.1 g/dL Low 14.0-18.0 [facility] Laboratory - Chemistry and C hemistry - challengeon 10-03-2023 Albumin [Mass/Vol] 1.9 g/dL Low 3.4-5.0 [facility] ALP [Catalytic activity/Vol] 140 U/L High 46-116 [facility] ALT [Catalytic activity/Vol] 17 U/L 16-63 [facility] AST [Catalytic activity/Vol] 21 U/L 15-37 [facility] Bilirubin [Mass/Vol] 0.3 mg/dL 0.2-1.0 [facility] Calcium [Mass/Vol] 6.7 mg/dL Low 8.5-10.1 [facility] Chloride [Moles/Vol] 101 mmol/L 98-107 [facility] CO2 [Moles/Vol] 23.9 mmol/L 21.0-32.0 [facility] Creatinine [Mass/Vol] 1.57 mg/dL High 0.70-1.30 [facility] GFR/1.73 sq M.predicted MDRD (S/P/Bld) [Vol rate/Area] 55 mL/min/{1.73_m2} Low >=60 [facility] Glucose [Mass/Vol] 142 mg/dL High 74-106 [facility] Magnesium [Mass/Vol] 1.3 mg/dL Low 1.8-2.4 [facility] Potassium [Moles/Vol] 4.8 mmol/L 3.5-5.1 [facility] Protein [Mass/Vol] 6.0 g/dL Low 6.4-8.2 [facility] Sodium [Moles/Vol] 134 mmol/L Low 136-145 [facility] Urea nitrogen [Mass/Vol] 23.0 mg/dL High 7.0-18.0 [facility] Urea nitrogen/Creatinine [Mass ratio] 14.6 mg/mg [facility] Laboratory - Hematology and Cell countson 10-03-2023 ESR (Bld) [Velocity] mm/h High <=20 [facility] Immature granulocytes/100 WBC (Bld) 1.0 % High 0.0-0.5 [facility] Leukocytes [#/volume] correc jorge for nucleated erythrocytes in Blood by Automated counon 10-03-2023 WBC corrected for nucl RBC Auto (Bld) [#/Vol] 11.6 10 3/uL High 4.0-11.0 [facility] Lymphocytes Auto (Bld) [#/Vo l]on 10-03-2023 Lymphocytes (Bld) [#/Vol] 1.4 10 3/uL 1.2-3.8 [facility] Lymphocytes/100 WBC Auto (Bl d)on 10-03-2023 Lymphocytes/100 WBC (Bld) 12.1 % Low 20.5-60.0 [facility] MCH Auto (RBC) [Entitic mass ]on 10-03-2023 MCH (RBC) [Entitic mass] 23.2 pg Low 25.9-34.0 [facility] MCHC Auto (RBC) [Mass/Vol]on 10-03-2023 MCHC (RBC) [Mass/Vol] 30.7 g/dL 29.9-35.2 [facility] MCV Auto (RBC) [Entitic vol] on 10-03-2023 MCV (RBC) [Entitic vol] 75.6 fL Low 80.0-94.0 [facility] Monocytes Auto (Bld) [#/Vol] on 10-03-2023 Monocytes (Bld) [#/Vol] 1.3 10 3/uL High 0.3-0.8 [facility] Monocytes/100 WBC Auto (Bld) on 10-03-2023 Monocytes/100 WBC (Bld) 10.8 % 1.7-12.0 [facility] Neutrophils Auto (Bld) [#/Vo l]on 10-03-2023 Neutrophils (Bld) [#/Vol] 8.5 10 3/uL High 1.4-6.5 [facility] Neutrophils/100 WBC Auto (Bl d)on 10-03-2023 Neutrophils/100 WBC (Bld) 72.7 % 43.0-75.0 [facility] No Panel Informationon 10-02 Eosinophils # (Auto) 0.3 10 3/uL 0.0-0.7 [facility] Immature Granulocyte # (Auto) 0.12 10 3/uL High 0.00-0.03 [facility] Platelet mean volume Auto (B ld) [Entitic vol]on 10-03-2023 Platelet mean volume (Bld) [Entitic vol] 11.3 fL 9.5-13.5 [facility] Platelets Auto (Bld) [#/Vol] on 10-03-2023 Platelets (Bld) [#/Vol] 141 10 3/uL Low 150-450 [facility] RBC Auto (Bld) [#/Vol]on RBC (Bld) [#/Vol] 3.49 10 6/uL Low 4.70-6.10 [facility] Serum or plasma albumin/glob ulin mass ratioon 10-03-2023 Albumin/Globulin [Mass ratio] 0.5 {ratio} [facility] Serum or plasma anion gap de terminationon 10-03-2023 Anion gap [Moles/Vol] 13.9 mmol/[facility] Bas[facility] Auto (Bld) [#/Vol] on 10-02-2023 [...] width (RBC) [Ratio] 19.3 % High 11.0-15.0 [facility] Estimated glomerular filtrat ion rate (GFR) non- Americanon 10-02-2023 GFR/1.73 sq M.predicted among non-blacks MDRD (S/P/Bld) [Vol rate/Area] 41 mL/min/{1.73_m2} Low >=60 [facility] Globulin Calc (S) [Mass/Vol] on 10-02-2023 Globulin (S) [Mass/Vol] 4.2 g/dL [facility] Hematocrit Auto (Bld) [Volum e fraction]on 10-02-2023 Hematocrit (Bld) [Volume fraction] 26.1 % Low 42.0-54.0 [facility] Hemoglobin [Mass/volume] in Bloodon 10-02-2023 Hemoglobin (Bld) [Mass/Vol] 7.8 g/dL Low 14.0-18.0 [facility] Laboratory - Chemistry and C hemistry - challengeon 10-02-2023 Albumin [Mass/Vol] 2.1 g/dL Low 3.4-5.0 [facility] ALP [Catalytic activity/Vol] 131 U/L High 46-116 [facility] ALT [Catalytic activity/Vol] 17 U/L 16-63 [facility] AST [Catalytic activity/Vol] 13 U/L Low 15-37 [facility] Bilirubin [Mass/Vol] 0.3 mg/dL 0.2-1.0 [facility] Calcium [Mass/Vol] 6.6 mg/dL Low 8.5-10.1 [facility] Chloride [Moles/Vol] 105 mmol/L 98-107 [facility] CO2 [Moles/Vol] 24.3 mmol/L 21.0-32.0 [facility] Creatinine [Mass/Vol] 1.72 mg/dL High 0.70-1.30 [facility] GFR/1.73 sq M.predicted MDRD (S/P/Bld) [Vol rate/Area] 50 mL/min/{1.73_m2} Low >=60 [facility] Glucose [Mass/Vol] 156 mg/dL High 74-106 [facility] Magnesium [Mass/Vol] 1.5 mg/dL Low 1.8-2.4 [facility] Potassium [Moles/Vol] 4.0 mmol/L 3.5-5.1 [facility] Protein [Mass/Vol] 6.3 g/dL Low 6.4-8.2 [facility] Sodium [Moles/Vol] 139 mmol/L 136-145 [facility] Urea nitrogen [Mass/Vol] 27.0 mg/dL High 7.0-18.0 [facility] Urea nitrogen/Creatinine [Mass ratio] 15.7 mg/mg [facility] Laboratory - Hematology and Cell countson 10-02-2023 Immature granulocytes/100 WBC (Bld) 0.4 % 0.0-0.5 [facility] ESR (Bld) [Velocity] 110 mm/h High <=20 [facility] Laboratory - Microbiology an d [...] Lymphocytes/100 WBC (Bld) 17.3 % Low 20.5-60.0 [facility] MCH Auto (RBC) [Entitic mass ]on 10-02-2023 MCH (RBC) [Entitic mass] 22.5 pg Low 25.9-34.0 [facility] MCHC Auto (RBC) [Mass/Vol]on 10-02-2023 MCHC (RBC) [Mass/Vol] 29.9 g/dL 29.9-35.2 [facility] MCV Auto (RBC) [Entitic vol] on 10-02-2023 MCV (RBC) [Entitic vol] 75.2 fL Low 80.0-94.0 [facility] Monocytes Auto (Bld) [...] 0.2 10 3/uL 0.0-0.7 [facility] Immature Granulocyte # (Auto) 0.03 10 3/uL 0.00-0.03 [facility] Fungal Smear Result [facility] Miscellaneous Test Comment See comment [facility] Comment on above: Specimen Source: JONO TRT - Foot Right - Foot Rt - 604.000 No Panel InformationOrdered By: Truman Bryant on 10-02-2023 Tissue Culture [facility] No Panel InformationOrdered By: Paula Soto on 10-02-2023 Acid Fast Smear [facility] AFB Specimen Processing [facility] Platelet mean volume Auto (B ld) [Entitic vol]on 10-02-2023 Platelet mean volume (Bld) [Entitic vol] 10.6 fL 9.5-13.5 [facility] Platelets Auto (Bld) [#/Vol] on 10-02-2023 Platelets (Bld) [#/Vol] 142 10 3/uL Low 150-450 [facility] RBC Auto (Bld) [#/Vol]on RBC (Bld) [#/Vol] 3.47 10 6/uL Low 4.70-6.10 [facility] Serum or plasma albumin/glob ulin mass ratioon 10-02-2023 Albumin/Globulin [Mass ratio] 0.5 {ratio} [facility] Serum or plasma anion gap de terminationon 10-02-2023 Anion gap [Moles/Vol] 13.7 mmol/L Fi [facility] Basophils Auto (Bld) [#/Vol] on 10-01-2023 Basophils (Bld) [#/Vol] 0.0 10 3/uL 0.0-0.1 [facility] Basophils/100 WBC Auto (Bld) on 10-01-2023 Basophils/100 WBC (Bld) 0.4 % 0.2-2.0 [facility] Eosinophils/100 WBC Auto (Bl d)on 10-01-2023 Eosinophils/100 WBC (Bld) 1.7 % 0.9-7.0 [facility] Erythrocyte distribution wid th Auto (RBC) [Ratio]on 10-01-2023 Erythrocyte distribution width (RBC) [Ratio] 18.5 % High 11.0-15.0 [facility] Estimated glomerular filtrat ion rate (GFR) non- Americanon 10-01-2023 GFR/1.73 sq M.predicted among non-blacks MDRD (S/P/Bld) [Vol rate/Area] 27 mL/min/{1.73_m2} Low >=60 [facility] Globulin Calc (S) [Mass/Vol] on 10-01-2023 Globulin (S) [Mass/Vol] 4.0 g/dL [facility] Hematocrit Auto (Bld) [Volum e fraction]on 10-01-2023 Hematocrit (Bld) [Volume fraction] 26.5 % Low 42.0-54.0 [facility] Hemoglobin [Mass/volume] in Bloodon 10-01-2023 Hemoglobin (Bld) [Mass/Vol] 8.0 g/dL Low 14.0-18.0 [facility] Laboratory - Chemistry and C hemistry - challengeon 10-01-2023 Lactate [Moles/Vol] 1.8 mmol/L 0.4-2.0 [facility] Albumin [Mass/Vol] 1.9 g/dL Low 3.4-5.0 [facility] ALP [Catalytic activity/Vol] 113 U/L 46-116 [facility] ALT [Catalytic activity/Vol] 17 U/L 16-63 [facility] AST [Catalytic activity/Vol] 14 U/L Low 15-37 [facility] Bilirubin [Mass/Vol] 0.3 mg/dL 0.2-1.0 [facility] Calcium [Mass/Vol] 5.7 mg/dL Low 8.5-10.1 [facility] Comment on above: RESULTS CALLED TO Patricio OlguinRN)@BY SKY AndersonT at 0619 Chloride [Moles/Vol] 102 mmol/L 98-107 [facility] CO2 [Moles/Vol] 20.4 mmol/L Low 21.0-32.0 [facility] Creatinine [Mass/Vol] 2.46 mg/dL High 0.70-1.30 [facility] GFR/1.73 sq M.predicted MDRD (S/P/Bld) [Vol rate/Area] 33 mL/min/{1.73_m2} Low >=60 [facility] Glucose [Mass/Vol] 67 mg/dL Low 74-106 [facility] Magnesium [Mass/Vol] 0.8 mg/dL Low 1.8-2.4 [facility] Comment on above: RESULTS CALLED TO Patricio Genao (RN)@BY SOFIYA Way at 0601 Potassium [Moles/Vol] 3.1 mmol/L Low 3.5-5.1 [facility] Protein [Mass/Vol] 5.9 g/dL Low 6.4-8.2 [facility] Sodium [Moles/Vol] 138 mmol/L 136-145 [facility] Urea nitrogen [Mass/Vol] 28.0 mg/dL High 7.0-18.0 [facility] Urea nitrogen/Creatinine [Mass ratio] 11.4 mg/mg [facility] Laboratory - Hematology and Cell countson 10-01-2023 ESR (Bld) [Velocity] 96 mm/h High <=20 [facility] Immature granulocytes/100 WBC (Bld) 0.6 % High 0.0-0.5 [facility] Leukocytes [#/volume] correc jorge for nucleated erythrocytes in Blood by Automated counon 10-01-2023 WBC corrected for nucl RBC Auto (Bld) [#/Vol] 10.0 10 3/uL 4.0-11.0 [facility] Lymphocytes Auto (Bld) [#/Vo l]on 10-01-2023 Lymphocytes (Bld) [#/Vol] 1.3 10 3/uL 1.2-3.8 [facility] Lymphocytes/100 WBC Auto (Bl d)on 10-01-2023 Lymphocytes/100 WBC (Bld) 12.8 % Low 20.5-60.0 [facility] MCH Auto (RBC) [Entitic mass ]on 10-01-2023 MCH (RBC) [Entitic mass] 22.4 pg Low 25.9-34.0 [facility] MCHC Auto (RBC) [Mass/Vol]on 10-01-2023 MCHC (RBC) [Mass/Vol] 30.2 g/dL 29.9-35.2 [facility] MCV Auto (RBC) [Entitic vol] on 10-01-2023 MCV (RBC) [Entitic vol] 74.2 fL Low 80.0-94.0 [facility] Monocytes Auto (Bld) [#/Vol] on 10-01-2023 Monocytes (Bld) [#/Vol] 0.7 10 3/uL 0.3-0.8 [facility] Monocytes/100 WBC Auto (Bld) on 10-01-2023 Monocytes/100 WBC (Bld) 6.9 % 1.7-12.0 [facility] Neutrophils Auto (Bld) [#/Vo l]on 10-01-2023 Neutrophils (Bld) [#/Vol] 7.8 10 3/uL High 1.4-6.5 [facility] Neutrophils/100 WBC Auto (Bl d)on 10-01-2023 Neutrophils/100 WBC (Bld) 77.6 % High 43.0-75.0 [facility] No Panel Informationon 09-30 C-Reactive Protein, Quantitative 10.58 mg/dL High <=0.50 [facility] Eosinophils # (Auto) 0.2 10 3/uL 0.0-0.7 [facility] Immature Granulocyte # (Auto) 0.06 10 3/uL High 0.00-0.03 [facility] Troponin I High [...] Partial Pressure CO2 30.4 mm[Hg] Low 40.0-52.0 [facility] Venous Blood pH 7.421 7.330-7.43 0 [facility] Platelet mean volume Auto (B ld) [Entitic vol]on 10-01-2023 Platelet mean volume (Bld) [Entitic vol] 11.2 fL 9.5-13.5 [facility] Platelets Auto (Bld) [#/Vol] on 10-01-2023 Platelets (Bld) [#/Vol] 164 10 3/uL 150-450 [facility] RBC Auto (Bld) [#/Vol]on RBC (Bld) [#/Vol] 3.57 10 6/uL Low 4.70-6.10 [facility] Serum or plasma albumin/glob ulin mass ratioon 10-01-2023 Albumin/Globulin [Mass ratio] 0.5 {ratio} [facility] Serum or plasma anion gap de terminationon 10-01-2023 Anion gap [Moles/Vol] 18.7 mmol/L [facility] Automated epithelial cells c ount in [...] (U) [Rel density] <=1.005 Abnormal 1.005-1.02 5 [facility] Basophils Auto [...] width (RBC) [Ratio] 19.0 % High 11.0-15.0 [facility] Estimated glomerular filtrat ion rate (GFR) non- Americanon 09-30-2023 GFR/1.73 sq M.predicted among non-blacks MDRD (S/P/Bld) [Vol rate/Area] 19 mL/min/{1.73_m2} Low >=60 [facility] Globulin Calc (S) [Mass/Vol] on 09-30-2023 Globulin (S) [Mass/Vol] 4.8 g/dL [facility] Hematocrit Auto (Bld) [Volum e fraction]on 09-30-2023 Hematocrit (Bld) [Volume fraction] 32.9 % Low 42.0-54.0 [facility] Hemoglobin [Mass/volume] in Bloodon 09-30-2023 Hemoglobin (Bld) [Mass/Vol] 10.0 g/dL Low 14.0-18.0 [facility] INR in Platelet poor plasma by Coagulation assayon 09-30-2023 INR Coag (PPP) [Relative time] 1.23 {INR} [facility] Comment on above: DESIRED INR:2.0-3.0 CONDITIONS NOT LISTED BELOW2.5-3.5 FOR PROSTHETIC HEART VALVE REPLACEMENT2.5-3.5 RECURRENT THROMBOSIS Ketones Auto test strip (U) [Mass/Vol]on 09-30-2023 Ketones (U) [Mass/Vol] Negative NEGATIVE [facility] - Chemistry and C hemistry - challengeon 09-30-2023 Lactate [Moles/Vol] 4.2 mmol/L High 0.4-2.0 [facility] Comment on above: RESULTS CALLED TO Patricio Genao (RN)@BY SOFI[address] Way at 2312 Albumin [Mass/Vol] 2.4 g/dL Low 3.4-5.0 [facility] ALP [Catalytic activity/Vol] 145 U/L High 46-116 [facility] ALT [Catalytic activity/Vol] 17 U/L 16-63 [facility] AST [Catalytic activity/Vol] 21 U/L 15-37 [facility] Bilirubin [Mass/Vol] 0.4 mg/dL 0.2-1.0 [facility] Calcium [Mass/Vol] 5.8 mg/dL Low 8.5-10.1 [facility] Comment on above: RESULTS CALLED TO KELECHI CASTANON @BY Verona Hanson at 1645 Chloride [Moles/Vol] 97 mmol/L Low 98-107 [facility] CO2 [Moles/Vol] 18.3 mmol/L Low 21.0-32.0 [facility] Creatinine [Mass/Vol] 3.43 mg/dL High 0.70-1.30 [facility] GFR/1.73 sq M.predicted MDRD (S/P/Bld) [Vol rate/Area] 22 mL/min/{1.73_m2} Low >=60 [facility] Glucose [Mass/Vol] 208 mg/dL High 74-106 [facility] Magnesium [Mass/Vol] 0.5 mg/dL Low 1.8-2.4 [facility] Comment on above: RESULTS CALLED TO Kelechi Castanon @BY Marybel Hawkins MLT [phone] Natriuretic peptide B (Bld) [Mass/Vol] 611.0 pg/mL <=900.0 [facility] Potassium [Moles/Vol] 3.9 mmol/L 3.5-5.1 [facility] Protein [Mass/Vol] 7.2 g/dL 6.4-8.2 [facility] Sodium [Moles/Vol] 137 mmol/L 136-145 [facility] Urea nitrogen [Mass/Vol] 34.0 mg/dL High 7.0-18.0 [facility] Urea nitrogen/Creatinine [Mass ratio] 9.9 mg/mg [facility] Laboratory - Hematology and Cell countson 09-30-2023 ESR (Bld) [Velocity] 130 mm/h High <=20 [facility] Immature granulocytes/100 WBC (Bld) 0.6 % High 0.0-0.5 [facility] Leukocytes [#/volume] correc jorge for nucleated erythrocytes in Blood by Automated counon 09-30-2023 WBC corrected for nucl RBC Auto (Bld) [#/Vol] 13.9 10 3/uL High 4.0-11.0 [facility] Lymphocytes Auto (Bld) [#/Vo l]on 09-30-2023 Lymphocytes (Bld) [#/Vol] 1.4 10 3/uL 1.2-3.8 [facility] Lymphocytes/100 WBC Auto (Bl d)on 09-30-2023 Lymphocytes/100 WBC (Bld) 10.1 % Low 20.5-60.0 [facility] MCH Auto (RBC) [Entitic mass ]on 09-30-2023 MCH (RBC) [Entitic mass] 22.7 pg Low 25.9-34.0 [facility] MCHC Auto (RBC) [Mass/Vol]on 09-30-2023 MCHC (RBC) [Mass/Vol] 30.4 g/dL 29.9-35.2 [facility] MCV Auto (RBC) [Entitic vol] on 09-30-2023 MCV (RBC) [Entitic vol] 74.6 fL Low 80.0-94.0 [facility] Monocytes Auto (Bld) [#/Vol] on 09-30-2023 Monocytes (Bld) [#/Vol] 0.9 10 3/uL High 0.3-0.8 [facility] Monocytes/100 WBC Auto (Bld) on 09-30-2023 Monocytes/100 WBC (Bld) 6.7 % 1.7-12.0 [facility] Mucus LM Ql (Urine sed)on Mucus Ql (Urine sed) NONE SEEN NONE SEEN [facility] Neutrophils Auto (Bld) [#/Vo l]on 09-30-2023 Neutrophils (Bld) [#/Vol] 11.2 10 3/uL High 1.4-6.5 [facility] Neutrophils/100 WBC Auto (Bl d)on 09-30-2023 Neutrophils/100 WBC (Bld) 80.8 % High 43.0-75.0 [facility] No Panel Informationon [...] Partial Pressure CO2 29.6 mm[Hg] Low 40.0-52.0 [facility] Venous Blood pH 7.405 7.330-7.43 0 [facility] Urine Culture [facility]ed [facility] C-Reactive Protein, Quantitative 14.76 mg/dL High <=0.50 [facility] Eosinophils # (Auto) 0.2 10 3/uL 0.0-0.7 [facility] Immature Granulocyte # (Auto) 0.09 10 3/uL High 0.00-0.03 [facility] No Panel InformationOrdered [...] 09-30-2023 Protein (U) [Mass/Vol] Negative NEG/TRACE [facility] Prothrombin time (PT)on 09-04 PT Coag (PPP) [Time] 12.9 s High 9.0-11.6 [facility] RBC Auto (Bld) [#/Vol]on RBC (Bld) [#/Vol] 4.41 10 6/uL Low 4.70-6.10 [facility] Serum or plasma albumin/glob ulin mass ratioon 09-30-2023 Albumin/Globulin [Mass ratio] 0.5 {ratio} [facility] Serum or plasma anion gap de terminationon 09-30-2023 Anion gap [Moles/Vol] 25.6 mmol/L [facility] Specific gravity Auto test s trip (U) [Rel density]on 09-30-2023 Specific gravity (U) [Rel density] CLEAR CLEAR [facility] Urine bacteria detection by automated methodon 09-30-2023 Bacteria Auto Ql (U) NONE SEEN #/HPF NONE SEEN [facility] Urine glucose measurement by test strip (mass/volume)on 09-30-2023 Glucose Test strip (U) [Mass/Vol] 500 mg/dL Abnormal NEGATIVE [facility] Urine hemoglobin detection [...] (U) 5.5 [pH] 5.0-9.0 [facility] Laboratory - Microbiology an d Antimicrobial susceptibilityOrdered By: Teresa Lynch on 09-21-2023 Microscopic observation Gram stain Nom (Unsp spec) [facility] Activated partial thrombopla stin time (aPTT) in platelet poor plasma by coagulation aon 09-18-2023 aPTT Coag (PPP) [Time] 32.0 s 22.3-36.[address] [facility] Basophils Auto (Bld) [#/Vol] on 09-18-2023 [...] width (RBC) [Ratio] 18.8 % High 11.0-15.0 [facility] Estimated glomerular filtrat ion rate (GFR) non- Americanon 09-18-2023 GFR/1.73 sq M.predicted among non-blacks MDRD (S/P/Bld) [Vol rate/Area] 27 mL/min/{1.73_m2} Low >=60 [facility] Hematocrit Auto (Bld) [Volum e fraction]on 09-18-2023 Hematocrit (Bld) [Volume fraction] 35.0 % Low 42.0-54.0 [facility] Hemoglobin [Mass/volume] in Bloodon 09-18-2023 Hemoglobin (Bld) [Mass/Vol] 10.3 g/dL Low 14.0-18.0 [facility] INR in Platelet poor plasma by Coagulation assayon 09-18-2023 INR Coag (PPP) [Relative time] 1.08 {INR} [facility] Comment on above: DESIRED INR:2.0-3.0 CONDITIONS NOT LISTED BELOW2.5-3.5 FOR PROSTHETIC HEART VALVE REPLACEMENT2.5-3.5 [facility] Laboratory - Chemistry and C hemistry - challengeon 09-18-2023 Calcium [Mass/Vol] 8.9 mg/dL 8.5-10.1 [facility] Chloride [Moles/Vol] 97 mmol/L Low 98-107 [facility] CO2 [Moles/Vol] 28.2 mmol/L 21.0-32.0 [facility] Creatinine [Mass/Vol] 2.47 mg/dL High 0.70-1.30 [facility] GFR/1.73 sq M.predicted MDRD (S/P/Bld) [Vol rate/Area] 33 mL/min/{1.73_m2} Low >=60 [facility] Glucose [Mass/Vol] 200 mg/dL High 74-106 [facility] Potassium [Moles/Vol] 3.7 mmol/L 3.5-5.1 [facility] Sodium [Moles/Vol] 137 mmol/L 136-145 [facility] Urea nitrogen [Mass/Vol] 23.0 mg/dL High 7.0-18.0 [facility] Urea nitrogen/Creatinine [Mass ratio] 9.3 mg/mg [facility] Laboratory - Hematology and Cell countson 09-18-2023 Immature granulocytes/100 WBC (Bld) 0.6 % High 0.0-0.5 [facility] Leukocytes [#/volume] correc jorge for nucleated erythrocytes in Blood by Automated counon 09-18-2023 WBC corrected for nucl RBC Auto (Bld) [#/Vol] 12.4 10 3/uL High 4.0-11.0 [facility] Lymphocytes Auto (Bld) [#/Vo l]on 09-18-2023 Lymphocytes (Bld) [#/Vol] 2.4 10 3/uL 1.2-3.8 [facility] Lymphocytes/100 WBC Auto (Bl d)on 09-18-2023 Lymphocytes/100 WBC (Bld) 19.6 % Low 20.5-60.0 [facility] MCH Auto (RBC) [Entitic mass ]on 09-18-2023 MCH (RBC) [Entitic mass] 22.2 pg Low 25.9-34.0 [facility] MCHC Auto (RBC) [Mass/Vol]on 09-18-2023 MCHC (RBC) [Mass/Vol] 29.4 g/dL Low 29.9-35.2 [facility] MCV Auto (RBC) [Entitic vol] on 09-18-2023 MCV (RBC) [Entitic vol] 75.3 fL Low 80.0-94.0 [facility] Monocytes Auto (Bld) [#/Vol] on 09-18-2023 Monocytes (Bld) [#/Vol] 1.2 10 3/uL High 0.3-0.8 [facility] Monocytes/100 WBC Auto (Bld) on 09-18-2023 Monocytes/100 WBC (Bld) 10.0 % 1.7-12.0 [facility] Neutrophils Auto (Bld) [#/Vo l]on 09-18-2023 Neutrophils (Bld) [#/Vol] 8.2 10 3/uL High 1.4-6.5 [facility] Neutrophils/100 WBC Auto (Bl d)on 09-18-2023 Neutrophils/100 WBC (Bld) 66.6 % 43.0-75.0 [facility] No Panel Informationon 09-17 Eosinophils # (Auto) 0.3 10 3/uL 0.0-0.7 [facility] Immature Granulocyte # (Auto) 0.07 10 3/uL High 0.00-0.03 [facility] Platelet mean volume Auto (B ld) [Entitic vol]on 09-18-2023 Platelet mean volume (Bld) [Entitic vol] 10.9 fL 9.5-13.5 [facility] Platelets Auto (Bld) [#/Vol] on 09-18-2023 Platelets (Bld) [#/Vol] 300 10 3/uL 150-450 [facility] Prothrombin time (PT)on 09-03 PT Coag (PPP) [Time] 11.4 s 9.0-11.6 [facility] RBC Auto (Bld) [#/Vol]on RBC (Bld) [#/Vol] 4.65 10 6/uL Low 4.70-6.10 [facility] Serum or plasma anion gap de terminationon 09-18-2023 Anion gap [Moles/Vol] 15.5 mmol/L [facility] - Microbiology an d Antimicrobial susceptibilityOrdered By: Teresa Lynch on 08-10-2023 Microscopic observation Gram stain Nom (Unsp spec) [facility] No Panel Informationon 08-09 Fungal Smear Result [facility] Miscellaneous Test Comment See comment [facility] Comment on above: Specimen Source: JONO TRT - Foot Right - Foot Rt - 604.000 No Panel InformationOrdered By: Teresa Lynch on 08-10-2023 Acid Fast Culture [facility] Acid Fast Smear [facility] [...] Albumin [Mass/Vol] 2.1 g/dL 3.4-5.0 [facility] ALP [Catalytic activity/Vol] 144 U/L 46-116 [facility] ALT [Catalytic activity/Vol] 21 U/L 16-63 [facility] AST [Catalytic activity/Vol] 25 U/L 15-37 [facility] Bilirubin [Mass/Vol] 0.4 mg/dL 0.2-1.0 [facility] Calcium [Mass/Vol] 8.1 mg/dL 8.5-10.1 [facility] Chloride [Moles/Vol] 102 mmol/L 98-107 [facility] CO2 [Moles/Vol] 24.7 mmol/L 21.0-32.0 [facility] Creatinine [Mass/Vol] 1.70 mg/dL 0.70-1.30 [facility] GFR/1.73 sq M.predicted MDRD (S/P/Bld) [Vol rate/Area] 50 mL/min/{1.73_m2} >=60 [facility] Glucose [Mass/Vol] 188 mg/dL 74-106 [facility] Potassium [Moles/Vol] 4.6 mmol/L 3.5-5.1 [facility] Protein [Mass/Vol] 6.1 g/dL 6.4-8.2 [facility] Sodium [Moles/Vol] 135 mmol/L 136-145 [facility] Urea nitrogen [Mass/Vol] 33.0 mg/dL 7.0-18.0 [facility]c [...] MCHC (RBC) [Mass/Vol] 29.8 g/dL 29.9-35.2 [facility] MCV Auto (RBC) [Entitic vol] on [...] # (Auto) 0.5 10 3/uL 0.0-0.7 [facility] Immature Granulocyte # (Auto) 0.09 10 3/uL 0.00-0.03 [facility] Platelet mean volume Auto (B ld) [Entitic vol]on 08-07-2023 Platelet mean volume (Bld) [Entitic vol] 11.7 fL 9.5-13.5 [facility] Platelets Auto (Bld) [#/Vol] on 08-07-2023 Platelets (Bld) [#/Vol] 222 10 3/uL 150-450 [facility] RBC Auto (Bld) [#/Vol]on RBC (Bld) [#/Vol] 4.18 10 6/uL 4.70-6.10 [facility] Serum or plasma albumin/glob ulin mass ratioon 08-07-2023 Albumin/Globulin [Mass ratio] 0.5 {ratio} [facility] Serum or plasma anion gap de terminationon 08-07-2023 Anion gap [Moles/Vol] 12.9 mmol/L [facility] Basophils Auto (Bld) [#/Vol] on 08-06-2023 [...] Albumin [Mass/Vol] 2.0 g/dL 3.4-5.0 [facility] ALP [Catalytic activity/Vol] 127 U/L 46-116 [facility] ALT [Catalytic activity/Vol] 14 U/L 16-63 [facility] AST [Catalytic activity/Vol] 16 U/L 15-37 [facility] Bilirubin [Mass/Vol] 0.4 mg/dL 0.2-1.0 [facility] Calcium [Mass/Vol] 7.9 mg/dL 8.5-10.1 [facility] Chloride [Moles/Vol] 99 mmol/L 98-107 [facility] CO2 [Moles/Vol] 25.0 mmol/L 21.0-32.0 [facility] Creatinine [Mass/Vol] 1.95 mg/dL 0.70-1.30 [facility] GFR/1.73 sq M.predicted MDRD (S/P/Bld) [Vol rate/Area] 43 mL/min/{1.73_m2} >=60 [facility] Glucose [Mass/Vol] 297 mg/dL 74-106 [facility] Potassium [Moles/Vol] 4.4 mmol/L 3.5-5.1 [facility] Protein [Mass/Vol] 6.0 g/dL 6.4-8.2 [facility] Sodium [Moles/Vol] 133 mmol/L 136-145 [facility] Urea nitrogen [Mass/Vol] 28.0 mg/dL 7.0-18.0 [facility]c [...] MCHC (RBC) [Mass/Vol] 29.2 g/dL 29.9-35.2 [facility] MCV Auto (RBC) [Entitic vol] on [...] # (Auto) 0.3 10 3/uL 0.0-0.7 [facility] Immature Granulocyte # (Auto) 0.04 10 3/uL 0.00-0.03 [facility] Platelet mean volume Auto (B ld) [Entitic vol]on 08-06-2023 Platelet mean volume (Bld) [Entitic vol] 12.2 fL 9.5-13.5 [facility] Platelets Auto (Bld) [#/Vol] on 08-06-2023 Platelets (Bld) [#/Vol] 190 10 3/uL 150-450 [facility] RBC Auto (Bld) [#/Vol]on RBC (Bld) [#/Vol] 3.91 10 6/uL 4.70-6.10 [facility] Serum or plasma albumin/glob ulin mass ratioon 08-06-2023 Albumin/Globulin [Mass ratio] 0.5 {ratio} [facility] Serum or plasma anion gap de terminationon 08-06-2023 Anion gap [Moles/Vol] 13.4 mmol[facility] Automated epithelial cells c ount in [...] 08-05-2023 Ketones (U) [Mass/Vol] Negative NEGATIVE [facility] - Chemistry and C hemistry - challengeon 08-05-2023 Albumin [Mass/Vol] 2.3 g/dL 3.4-5.0 [facility] ALP [Catalytic activity/Vol] 111 U/L 46-116 [facility] ALT [Catalytic activity/Vol] 11 U/L 16-63 [facility] AST [Catalytic activity/Vol] 11 U/L 15-37 [facility] Bilirubin [Mass/Vol] 0.5 mg/dL 0.2-1.0 [facility] Calcium [Mass/Vol] 8.1 mg/dL 8.5-10.1 [facility] Chloride [Moles/Vol] 101 mmol/L 98-107 [facility] CO2 [Moles/Vol] 25.6 mmol/L 21.0-32.0 [facility] Creatinine [Mass/Vol] 1.68 mg/dL 0.70-1.30 [facility] GFR/1.73 sq M.predicted MDRD (S/P/Bld) [Vol rate/Area] 51 mL/min/{1.73_m2} >=60 [facility] Glucose [Mass/Vol] 111 mg/dL 74-106 [facility] Potassium [Moles/Vol] 3.7 mmol/L 3.5-5.1 [facility] Protein [Mass/Vol] 6.4 g/dL 6.4-8.2 [facility] Sodium [Moles/Vol] 138 mmol/L 136-145 [facility] Urea nitrogen [Mass/Vol] 17.0 mg/dL 7.0-18.0 [facility] [...] 08-05-2023 MCHC (RBC) [Mass/Vol] 29.6 g/dL 29.9-35.2 [facility] MCV Auto (RBC) [Entitic vol] on 08-05-2023 MCV (RBC) [Entitic vol] 75.9 fL 80.0-94.0 [facility] Monocytes Auto (Bld) [#/Vol] on 08-05-2023 Monocytes (Bld) [#/Vol] 1.3 10 3/uL 0.3-0.8 [facility] Monocytes/100 WBC Auto (Bld) on 08-05-2023 Monocytes/100 WBC (Bld) 10.7 % 1.7-12.0 [facility] Mucus LM Ql (Urine sed)on Mucus Ql (Urine sed) NONE SEEN NONE SEEN [facility] Neutrophils Auto (Bld) [#/Vo l]on 08-05-2023 Neutrophils (Bld) [#/Vol] 9.1 10 3/uL 1.4-6.5 [facility] Neutrophils/100 WBC Auto (Bl d)on 08-05-2023 Neutrophils/100 WBC (Bld) 73.9 % 43.0-75.0 [facility] No Panel Informationon 08-04 Eosinophils # (Auto) 0.3 10 3/uL 0.0-0.7 [facility] Immature Granulocyte # (Auto) 0.05 10 3/uL 0.00-0.03 [facility] Platelet mean volume Auto (B ld) [Entitic vol]on 08-05-2023 Platelet mean volume (Bld) [Entitic vol] 11.2 fL 9.5-13.5 [facility] Platelets Auto (Bld) [#/Vol] on 08-05-2023 Platelets (Bld) [#/Vol] 184 10 3/uL 150-450 [facility] Protein Auto test strip (U) [Mass/Vol]on 08-05-2023 Protein (U) [Mass/Vol] Negative NEG/TRACE [facility] RBC Auto (Bld) [#/Vol]on RBC (Bld) [#/Vol] 4.19 10 6/uL 4.70-6.10 [facility] Serum or plasma albumin/glob ulin mass ratioon 08-05-2023 Albumin/Globulin [Mass ratio] 0.6 {ratio} [facility] Serum or plasma anion gap de terminationon 08-05-2023 Anion gap [Moles/Vol] 15.1 mmol/L Fi [facility] Specific gravity Auto test s trip (U) [Rel density]on 08-05-2023 Specific gravity (U) [Rel density] CLEAR CLEAR [facility] Urine bacteria detection by automated methodon 08-05-2023 Bacteria Auto Ql (U) TRACE #/HPF NONE SEEN [facility] Urine glucose measurement by test strip [...] Albumin [Mass/Vol] 2.4 g/dL 3.4-5.0 [facility] ALP [Catalytic activity/Vol] 109 U/L 46-116 [facility] ALT [Catalytic activity/Vol] 9 U/L 16-63 [facility] AST [Catalytic activity/Vol] U/L 15-37 [facility] Bilirubin [Mass/Vol] 0.4 mg/dL 0.2-1.0 [facility] Calcium [Mass/Vol] 8.0 mg/dL 8.5-10.1 [facility] Chloride [Moles/Vol] 96 mmol/L 98-107 [facility] CO2 [Moles/Vol] 29.2 mmol/L 21.0-32.0 [facility] Creatinine [Mass/Vol] 2.06 mg/dL 0.70-1.30 [facility] GFR/1.73 sq M.predicted MDRD (S/P/Bld) [Vol rate/Area] 40 mL/min/{1.73_m2} >=60 [facility] Glucose [Mass/Vol] 329 mg/dL 74-106 [facility] Potassium [Moles/Vol] 3.5 mmol/L 3.5-5.1 [facility] Protein [Mass/Vol] 6.8 g/dL 6.4-8.2 [facility] Sodium [Moles/Vol] 132 mmol/L 136-145 [facility] Urea nitrogen [Mass/Vol] 20.0 mg/dL 7.0-18.0 [facility] Urea nitrogen/Creatinine [Mass ratio] 9.7 mg/mg [facility] Laboratory - Hematology and Cell countson 08-04-2023 ESR (Bld) [Velocity] 89 mm/h <=20 [facility] Immature granulocytes/100 WBC (Bld) 0.3 [...] MCHC (RBC) [Mass/Vol] 29.4 g/dL 29.9-35.2 [facility] MCV Auto (RBC) [Entitic vol] on [...] [facility] No Panel InformationOrdered By: Teresa Lynch on 08-04-2023 Blood Culture 2 [facility] [...] # (Auto) 0.3 10 3/uL 0.0-0.7 [facility] Immature Granulocyte # (Auto) 0.04 10 3/uL 0.00-0.03 [facility] Platelet mean volume Auto (B ld) [Entitic vol]on 08-04-2023 Platelet mean volume (Bld) [Entitic vol] 11.5 fL 9.5-13.5 [facility] Platelets Auto (Bld) [#/Vol] on 08-04-2023 Platelets (Bld) [#/Vol] 206 10 3/uL 150-450 [facility] Prothrombin time (PT)on PT Coag (PPP) [Time] 11.1 s 9.0-11.6 [facility] RBC Auto (Bld) [#/Vol]on RBC (Bld) [#/Vol] 4.30 10 6/uL 4.70-6.10 [facility] Serum or plasma albumin/glob ulin mass ratioon 08-04-2023 Albumin/Globulin [Mass ratio] 0.5 {ratio} [facility] Serum or plasma anion gap de terminationon 08-04-2023 Anion gap [Moles/Vol] 10.3 mmol[facility]L [facility] Serum procalcitonin measurem enton 08-04-2023 Procalcitonin [...] challengeon 08-03-2023 Lactate [Moles/Vol] 1.6 mmol/L 0.4-2.0 [facility] Albumin [Mass/Vol] 3.3 g/dL 3.4-5.0 [facility] ALP [Catalytic activity/Vol] 134 U/L 46-116 [facility] ALT [Catalytic activity/Vol] 13 U/L 16-63 [facility] AST [Catalytic activity/Vol] U/L 15-37 [facility] Bilirubin [Mass/Vol] 0.6 mg/dL 0.2-1.0 [facility] Calcium [Mass/Vol] 9.3 mg/dL 8.5-10.1 [facility] Chloride [Moles/Vol] 92 mmol/L 98-107 [facility] CO2 [Moles/Vol] 31.0 mmol/L 21.0-32.0 [facility] Creatinine [Mass/Vol] 2.45 mg/dL 0.70-1.30 [facility] GFR/1.73 sq M.predicted MDRD (S/P/Bld) [Vol rate/Area] 33 mL/min/{1.73_m2} >=60 [facility] Glucose [Mass/Vol] 310 mg/dL 74-106 [facility] Potassium [Moles/Vol] 3.7 mmol/L 3.5-5.1 [facility] Protein [Mass/Vol] 8.3 g/dL 6.4-8.2 [facility] Sodium [Moles/Vol] 133 mmol/L 136-145 [facility] Urea nitrogen [Mass/Vol] 23.0 mg/dL 7.0-18.0 [facility] Urea nitrogen/Creatinine [Mass ratio] 9.4 mg/mg [facility] Laboratory - Hematology and Cell countson 08-03-2023 ESR (Bld) [Velocity] 118 mm/h <=20 [facility] Immature granulocytes/100 WBC (Bld) 0.4 [...] MCHC (RBC) [Mass/Vol] 30.3 g/dL 29.9-35.2 [facility] MCV Auto (RBC) [Entitic vol] on [...] # (Auto) 0.3 10 3/uL 0.0-0.7 [facility] Immature Granulocyte # (Auto) 0.06 10 3/uL 0.00-0.03 [facility] Venous Blood Partial Pressure CO2 44.8 mm[Hg] 40.0-52.0 [facility] Venous Blood pH 7.432 7.330-7.43 0 [facility] No Panel InformationOrdered By: Teresa Lynch on 08-03-2023 Blood Culture 2 [facility] Blood Culture 1 [facility] Platelet mean volume Auto (B ld) [Entitic vol]on 08-03-2023 Platelet mean volume (Bld) [Entitic vol] 11.4 fL 9.5-13.5 [facility] Platelets Auto (Bld) [#/Vol] on 08-03-2023 Platelets (Bld) [#/Vol] 252 10 3/uL 150-450 [facility] RBC Auto (Bld) [#/Vol]on RBC (Bld) [#/Vol] 5.23 10 6/uL 4.70-6.10 [facility] Serum or plasma albumin/glob ulin mass ratioon 08-03-2023 Albumin/Globulin [Mass ratio] 0.7 {ratio} [facility] Serum or plasma anion gap de terminationon 08-03-2023 Anion gap [Moles/Vol] 13.7 mmol/L [facility] Activated partial thrombopla stin time (aPTT) in platelet poor plasma by coagulation aOrdered By: Abdullahi Wilson on 07-12-2023 aPTT Coag (PPP) [Time] 29.4 s 25.1-36.[address] [facility] Comment on above: A hematocrit value g reater than 55% may lead to inaccurate results in coagulation testing. Patients having hematocrit values >55% require a special collection tube for coagulation studies. Please contact the laboratory at [phone] for redraw instructions. Alanine aminotransferase [En zymatic activity/volume] in Serum or PlasmaOrdered By: Abdullahi Wilson on 07-12-2023 ALT [Catalytic activity/Vol] 9 U/L 7-52 [facility] Albumin [Mass/volume] in Ser um or Plasma by Bromocresol green (BCG) dye binding methoOrdered By: Abdullahi Wilson on 07-12-2023 Albumin BCG dye [Mass/Vol] 3.9 g/dL 3.5-5.7 [facility] Alkaline phosphatase [Enzyma tic activity/volume] in Serum or PlasmaOrdered By: Abdullahi Wilson on 07-12-2023 ALP [Catalytic activity/Vol] 106 U/L 34-104 [facility] Aspartate aminotransferase [ Enzymatic activity/volume] in Serum or PlasmaOrdered By: Abdullahi Wilson on 07-12-2023 AST [Catalytic activity/Vol] 8 U/L 13-39 [facility] Basophils Auto (Bld) [#/Vol] Ordered By: Abdullahi Wilson on 07-12-2023 Basophils (Bld) [#/Vol] 0.1 10*3/uL 0.0-0.2 [facility] Basophils/100 WBC Auto (Bld) Ordered By: Abdullahi Wilson on 07-12-2023 Basophils/100 WBC (Bld) 1.1 % . [facility] Bilirubin.total [Mass/volume ] in Serum or PlasmaOrdered By: Abdullahi Wilson on 07-12-2023 Bilirubin [Mass/Vol] 0.4 mg/dL 0.3-1.0 [facility] Calcium [Mass/volume] in Ser um or PlasmaOrdered By: Abdullahi Wilson on 07-12-2023 Calcium [Mass/Vol] 8.5 mg/dL 8.6-10.3 [facility] Carbon dioxide, total [Moles /volume] in Serum or PlasmaOrdered By: Abdullahi Wilson on 07-12-2023 CO2 [Moles/Vol] 24.5 mmol/L 21.0-31.0 [facility] Chloride [Moles/volume] in S ilia or PlasmaOrdered By: Abdullahi Wilson on 07-12-2023 Chloride [Moles/Vol] 102 mmol/L 98-107 [facility] Creatine kinase [Enzymatic a ctivity/volume] in Serum or PlasmaOrdered By: Abdullahi Wilson on 07-12-2023 CK [Catalytic activity/Vol] 55 U/L 30-223 [facility] Creatinine [Mass/volume] in Serum or PlasmaOrdered By: Abdullahi Wilson on 07-12-2023 Creatinine [Mass/Vol] 1.82 mg/dL 0.70-1.30 [facility] Eosinophils Auto (Bld) [#/Vo l]Ordered By: Abdullahi Wilson on 07-12-2023 Eosinophils (Bld) [#/Vol] 0.3 10*3/uL 0.0-0.45 [facility] Eosinophils/100 WBC Auto (Bl d)Ordered By: Abdullahi Wilson on 07-12-2023 Eosinophils/100 WBC (Bld) 3.3 % . [facility] Erythrocyte distribution wid th Auto (RBC) [Ratio]Ordered By: Abdullahi Wilson on 07-12-2023 Erythrocyte distribution width (RBC) [Ratio] 17.1 % 12.0-14.8 [facility] Globulin Calc (S) [Mass/Vol] Ordered By: Abdullahi Wilson on 07-12-2023 Globulin (S) [Mass/Vol] 3.1 g/dL [facility] Glucose [Mass/volume] in Ser um or PlasmaOrdered By: Abdullahi Wilson on 07-12-2023 Glucose [Mass/Vol] 302 mg/dL 70-100 [facility] Comment on above: ADA recommended refe rence rangeRandom Glucose Reference Range is dependent on time and content of last meal. Glucose of more than 200 mg/dL in a nonstressed, ambulatory subject supports the diagnosis of Diabetes Mellitus. Hematocrit Auto (Bld) [Volum e fraction]Ordered By: Abdullahi Wilson on 07-12-2023 Hematocrit (Bld) [Volume fraction] 32.7 % 38.8-50.0 [facility] Hemoglobin [Mass/volume] in BloodOrdered By: Abdullahi Wilson on 07-12-2023 Hemoglobin (Bld) [Mass/Vol] 10.6 g/dL 13.0-17.0 [facility] INR in Platelet poor plasma by Coagulation assayOrdered By: Abdullahi Wilson on 07-12-2023 INR Coag (PPP) [Relative [...] erythrocytes in Blood by Automated counOrdered By: Abdullahi Wilson on 07-12-2023 WBC corrected for nucl RBC Auto (Bld) [#/Vol] 9.5 10*3/uL 4.1-10.5 [facility] Lymphocytes Auto (Bld) [#/Vo l]Ordered By: Abdullahi Wilson on 07-12-2023 Lymphocytes (Bld) [#/Vol] 1.9 10*3/uL 1.00-4.8 [facility] Lymphocytes/100 WBC Auto (Bl d)Ordered By: Abdullahi Wilson on 07-12-2023 Lymphocytes/100 WBC (Bld) 20.0 % . [facility] MCH Auto (RBC) [Entitic mass ]Ordered By: Abdullahi Wilson on 07-12-2023 MCH (RBC) [Entitic mass] 22.8 pg 27.5-35.2 [facility] MCHC Auto (RBC) [Mass/Vol]Or dered By: Abdullahi Wilson on 07-12-2023 MCHC (RBC) [Mass/Vol] 32.4 g/dL 32.5-35.6 [facility] MCV Auto (RBC) [Entitic vol] Ordered By: Abdullahi Wilson on 07-12-2023 MCV (RBC) [Entitic vol] 70.6 fL 83.5-101 [facility] Monocyte distribution width [Entitic volume] in Blood by AutomatedOrdered By: Abdullahi Wilson on 07-12-2023 Monocyte distribution width Auto (Bld) [Entitic vol] 18.12 % 0.00-20.00 [facility] Monocytes Auto (Bld) [#/Vol] Ordered By: Abdullahi Wilson on 07-12-2023 Monocytes (Bld) [#/Vol] 1.0 10*3/uL 0.0-0.8 [facility] Monocytes/100 WBC Auto (Bld) Ordered By: Abdullahi Wilson on 07-12-2023 Monocytes/100 WBC (Bld) 10.2 % . [facility] Natriuretic peptide B [Mass/ Vol]Ordered By: Abdullahi Wilson on 07-12-2023 Natriuretic peptide B (Bld) [Mass/Vol] 34.0 pg/mL 5-100 [facility] Neutrophils Auto (Bld) [#/Vo l]Ordered By: Abdullahi Wilson on 07-12-2023 Neutrophils (Bld) [#/Vol] 6.2 10*3/uL 1.8-7.7 [facility] Neutrophils/100 WBC Auto (Bl d)Ordered By: Abdullahi Wilson on 07-12-2023 Neutrophils/100 WBC (Bld) 65.4 % . [facility] No Panel InformationOrdered By: Abdullahi Wilson on 07-12-2023 Estimated GFR (CKD-EPI) 42.789 mL/Min [facility] Creatinine Clearance (Chem 54.64 [facility] Nucleated erythrocytes [Pres ence] in Blood by Automated countOrdered By: Abdullahi Wilson on 07-12-2023 Nucleated RBC Auto Ql (Bld) 0.1 /100{WBC} 0-0.5 [facility] Platelet mean volume Auto (B ld) [Entitic vol]Ordered By: Abdullahi Wilson on 07-12-2023 Platelet mean volume (Bld) [Entitic vol] 9.1 fL 6.6-10.1 [facility] Platelets Auto (Bld) [#/Vol] Ordered By: Abdullahi Wilson on 07-12-2023 Platelets (Bld) [#/Vol] 233 10*3/uL 150-450 [facility] Potassium [Moles/volume] in Serum or PlasmaOrdered By: Abdullahi Wilson on 07-12-2023 Potassium [Moles/Vol] 3.9 mmol/L 3.5-5.1 [facility] Protein [Mass/volume] in Ser um or PlasmaOrdered By: Abdullahi Wilson on 07-12-2023 Protein [Mass/Vol] 7.0 g/dL 6.4-8.9 [facility] Prothrombin time (PT)Ordered By: Abdullahi Wilson on 07-12-2023 PT Coag (PPP) [Time] 12.1 s 9.0-12.9 [facility] Comment on above: A hematocrit value g reater than 55% may lead to inaccurate results in coagulation testing. Patients having hematocrit values >55% require a special collection tube for coagulation studies. Please contact the laboratory at [phone] for redraw instructions. RBC Auto (Bld) [#/Vol]Ordere d By: Abdullahi Wilson on 07-12-2023 RBC (Bld) [#/Vol] 4.63 10*6/uL 3.90-5.60 [facility] Serum or plasma albumin/glob ulin mass ratioOrdered By: Abdullahi Wilson on 07-12-2023 Albumin/Globulin [Mass ratio] 1.3 {ratio} [facility] Serum or plasma anion gap de terminationOrdered By: Abdullahi Wilson on 07-12-2023 Anion gap [Moles/Vol] 13.4 mmol/L 6.0-15.[address] [facility] Sodium [Moles/volume] in Ser um or PlasmaOrdered By: Abdullahi Wilson on 07-12-2023 Sodium [Moles/Vol] 136 mmol/L 136-145 [facility] Troponin I.cardiac [Mass/vol ume] in Serum or Plasma by Detection limit <= 0.01 ng/Ordered By: Abdullahi Wilson on 07-12-2023 Troponin I.cardiac DL <= 0.01 ng/mL [Mass/Vol] 4.6 pg/mL 0.0-20.0 [facility] Urea nitrogen [Mass/volume] in Serum or PlasmaOrdered By: Abdullahi Wilson on 07-12-2023 Urea nitrogen [Mass/Vol] 16 mg/dL 7-25 [facility] WBC Auto (Bld) [#/Vol]Ordere d By: Abdullahi Wilson on 07-12-2023 WBC (Bld) [#/Vol] 9.5 10*3/uL 4.1-10.5 [facility] Patient Educationon 06-02-20 Patient Education Urology Benign [...] Follow these instructions at home: ? Take [id number] and prescription medicines only as told by [...] the medicine (more content not included)... Normal [facility] Retail - Clinical Noteon Retail - Clinical Note [id number]#1.00TIFF Normal [facility] Urology Office/Clinic Noteon 06-02-2023 Urology Office/Clinic [...] Information SOLEDAD HERRERA, Yeyo Blum, URL [address] [id number]- Additional Instructions: 1 month w/ cath volumes Patient Education Benign Prostatic Hyperplasia Mattie Morrow, personally scribed for Dr. Rowe on 06/02/2023 [...] heart failure) (more content not included)... Normal [facility] Comment on above: Result Comment: Elec tronically Signed By: SOLEDAD HERRERA, Yeyo Blum\.br\Date and Time Signed: 06/02/23 12:16 EST\.br\Electronically Co-Signed By: Mattie Foster\Date and Time Co-Signed: 06/02/23 12:04 EST Patient Educationon 05-03-20 Patient Education Normal [facility] Pathology Noteon 05-01-2023 Pathology Note [id number]#1.00TIFF Normal [facility] Lab Reportson 04-14-2023 Lab Reports [id number]#1.00TIFF Normal [facility] Operative Reporton Operative Report [id number]#1.00TIFF Normal [facility] Patient Correspondenceon Patient Correspondence [id number]#1.00TIFF Normal [facility] Lab Reportson 03-31-2023 Lab Reports [id number]#1.00TIFF Normal [facility] RAD - MISCon 03-31-2023 RAD - MISC [id number]#1.00TIFF Normal [facility] Patient Correspondenceon Patient Correspondence [id number]#1.00TIFF Normal [facility] Formson 03-23-2023 Forms [id number]#1.00TIFF Normal [facility] A1C HEMOGLOBINon 03-15-2023 HbA1c (Bld) [Mass fraction] 7.5 % [employer] Other HbA1c (Bld) [Mass fraction]o n 03-15-2023 A1C HEMOGLOBIN [employer] Other Lab Reportson 03-09-2023 Lab Reports [id number]#1.00TIFF [facility]quise [facility] Office Visit (Cardiology)on 02-15-2023 Follow-up visit [...] in adult Healthy Weight Tips; Status:Complete; Done: [id number] Patient Instructions Please bring all medicines, vitamins, [...] Sia HERRERA, (more content not included)... Normal [employer] Tobacco Screening.on 023 Fall risk assessment c) Not medically indicated -[facility] [facility] 250 DO Work Phone: Tobacco use status CP b) No [facility] [employer] 250 DO Work Phone: Tobacco Screening. Yes [facility] [facility] 250 DO Work Phone: [facility] CARDIAC STRESS/REST INJE CTIONon 01-25-2023 [facility] CARDIAC STRESS/REST INJECTION Patient Name: MYRA PICKARD STUDY: MYOCARDIAL PERFUSION STRESS TEST WITH EXERCISE CONVERTED TO LEXISCAN Performing facility: [facility], [address] [place] [address], [address], [address] Provider: Dolores Pickard RN, HOOP DRIVING MACHINE OPERATOR HELPER PCP: Dr. Teresa Lynch Supervising provider: Pascale Arnold MD, FACC INDICATION: Anginal equivalent CAD; HISTORY: Gender: M; Age: 57 y/o ; Height: 182.88 cm; Weight: 97.2431428 kg. High Cholesterol; CAD; Diabetes; HTN; Palpitations; Chest Pain; Quit smoking unknown years ago. COMPARISON: Previous nuclear testing completed [id number] at [facility]. ACCESSION NUMBER(S): [id number]; [id number]; [id number] ORDERING CLINICIAN: DOLORES PICKARD TECHNIQUE: ONE DAY [...] Electronically signed by: PASCALE ARNOLD MD Normal [facility] No Panel Informationon 01-25 Normal -[facility] [facility] 250 DO Work [...] contact the office if new symptoms arise. REPORTING CONSULTANT after procedure Chief Complaint Routine f/u: 'I [...] Cataract surg (more content not included)... Normal [employer] Tobacco Screening.on 023 Adult depression screening assessment No [facility] [employer] 600 DO Work Phone: Tobacco use status CPHS b) No [facility] [employer] 600 DO Work Phone: Alanine aminotransferase [En zymatic activity/volume] in Serum or PlasmaOrdered By: Treesa Lynch on 09-27-2022 ALT [Catalytic activity/Vol] 15 [...] Center Basophils Auto (Bld) [#/Vol] Ordered By: Teresa Lynch on 09-27-2022 Basophils (Bld) [#/Vol] 0.1 10*3/uL 0.0-0.2 [facility] Basophils/100 WBC Auto (Bld) Ordered By: Teresa Lynch on 09-27-2022 Basophils/100 WBC (Bld) 1.1 % . [facility] Bilirubin.total [Mass/volume ] in Serum or PlasmaOrdered By: Teresa Lynch on 09-27-2022 Bilirubin [Mass/Vol] 0.4 mg/dL 0.3-1.0 [facility] Calcium [Mass/volume] in Ser um or PlasmaOrdered By: Teresa Lynch on 09-27-2022 Calcium [Mass/Vol] 8.8 mg/dL 8.6-10.3 [facility] Carbon dioxide, total [Moles /volume] in Serum or PlasmaOrdered By: Teresa Lynch on 09-27-2022 CO2 [Moles/Vol] 27.2 mmol/L 21.0-31.0 [facility] Chloride [Moles/volume] in S ilia or PlasmaOrdered By: Teresa Lynch on 09-27-2022 Chloride [Moles/Vol] 99 mmol/L 98-107 [facility] Cholesterol [Mass/volume] in Serum or PlasmaOrdered By: Teresa Lynch on 09-27-2022 Cholesterol [Mass/Vol] 104 mg/dL 140-[address] [facility] Comment on above: Chol [...] 09-27-2022 Creatinine [Mass/Vol] 1.84 mg/dL 0.70-1.30 [facility] Eosinophils Auto (Bld) [#/Vo l]Ordered By: Teresa Lynch on 09-27-2022 Eosinophils (Bld) [#/Vol] 0.7 10*3/uL 0.0-0.45 [facility] Eosinophils/100 WBC Auto (Bl d)Ordered By: Teresa Lynch on 09-27-2022 Eosinophils/100 WBC (Bld) 5.9 % . [facility] Erythrocyte distribution wid th Auto (RBC) [Ratio]Ordered By: Teresa Lynch on 09-27-2022 Erythrocyte distribution width (RBC) [Ratio] 16.0 % 12.0-14.8 [facility] Globulin Calc (S) [Mass/Vol] Ordered By: Teresa Lynch on 09-27-2022 Globulin (S) [Mass/Vol] 2.9 g/dL [facility] Glucose [Mass/volume] in Ser um or PlasmaOrdered By: Teresa Lynch on 09-27-2022 Glucose [Mass/Vol] 225 mg/dL 70-100 [facility] Comment on above: ADA recommended refe rence rangeRandom Glucose Reference Range is dependent on time and content of last meal. Glucose of more than 200 mg/dL in a nonstressed, ambulatory subject supports the diagnosis of Diabetes Mellitus. Hematocrit Auto (Bld) [Volum e fraction]Ordered By: Teresa Lynch on 09-27-2022 Hematocrit (Bld) [Volume fraction] 41.0 % 38.8-50.0 [facility] Hemoglobin [Mass/volume] in BloodOrdered By: Teresa Lynch on 09-27-2022 Hemoglobin (Bld) [Mass/Vol] 13.2 g/dL 13.0-17.0 [facility] Leukocytes [#/volume] correc jorge for nucleated erythrocytes in Blood by Automated counOrdered By: Teresa Lynch on 09-27-2022 WBC corrected for nucl RBC Auto (Bld) [#/Vol] 12.4 10*3/uL 4.1-10.5 [facility] Lymphocytes Auto (Bld) [#/Vo l]Ordered By: Teresa Lynch on 09-27-2022 Lymphocytes (Bld) [#/Vol] 2.3 10*3/uL 1.00-4.8 [facility] Lymphocytes/100 WBC Auto (Bl d)Ordered By: Teresa Lynch on 09-27-2022 Lymphocytes/100 WBC (Bld) 18.2 % . [facility] MCH Auto (RBC) [Entitic mass ]Ordered By: Teresa Lynch on 09-27-2022 MCH (RBC) [Entitic mass] 23.9 pg 27.5-35.2 [facility] MCHC Auto (RBC) [Mass/Vol]Or dered By: Teresa Lynch on 09-27-2022 MCHC (RBC) [Mass/Vol] 32.2 g/dL 32.5-35.6 [facility] MCV Auto (RBC) [Entitic vol] Ordered By: Teresa Lynch on 09-27-2022 MCV (RBC) [Entitic vol] 74.3 fL 83.5-101 [facility] Monocytes Auto (Bld) [#/Vol] Ordered By: Teresa Lynch on 09-27-2022 Monocytes (Bld) [#/Vol] 1.0 10*3/uL 0.0-0.8 [facility] Monocytes/100 WBC Auto (Bld) Ordered By: Teresa Lynch on 09-27-2022 Monocytes/100 WBC (Bld) 7.9 % . [facility] Neutrophils Auto (Bld) [#/Vo l]Ordered By: Teresa Lynch on 09-27-2022 Neutrophils (Bld) [#/Vol] 8.3 10*3/uL 1.8-7.7 [facility] Neutrophils/100 WBC Auto (Bl d)Ordered By: Teresa Lynch on 09-27-2022 Neutrophils/100 WBC (Bld) 66.9 % . [facility] No Panel InformationOrdered By: Teresa Lynch on [...] Center Platelets Auto (Bld) [#/Vol] Ordered By: Teresa Lynch on 09-27-2022 Platelets (Bld) [#/Vol] 209 10*3/uL 150-450 [facility] Potassium [Moles/volume] in Serum or PlasmaOrdered By: Teresa Lynch on 09-27-2022 Potassium [Moles/Vol] 4.3 mmol/L 3.5-5.1 [facility] Protein [Mass/volume] in Ser um or PlasmaOrdered By: Teresa Lynch on 09-27-2022 Protein [Mass/Vol] 7.0 g/dL 6.4-8.9 [facility] RBC Auto (Bld) [#/Vol]Ordere d By: Teresa Lynch on 09-27-2022 RBC (Bld) [#/Vol] 5.52 10*6/uL 3.90-5.60 [facility] Serum or plasma albumin/glob ulin mass ratioOrdered By: Teresa Lynch on 09-27-2022 Albumin/Globulin [Mass ratio] 1.4 {ratio} [facility] Serum or plasma anion gap de terminationOrdered By: Teresa Lynch on 09-27-2022 Anion gap [Moles/Vol] 14.1 mmol/L 6.0-15.[address] [facility] Serum or plasma high [...] Sodium [Moles/Vol] 136 mmol/L 136-145 [facility] Thyrotropin [Units/volume] i n Serum or PlasmaOrdered [...] on 09-27-2022 Urate [Mass/Vol] 6.2 mg/dL 2.4-7.6 [facility] Urea nitrogen [Mass/volume] in Serum or PlasmaOrdered By: Teresa Lynch on 09-27-2022 Urea nitrogen [Mass/Vol] 15 mg/dL 12-27 [facility] WBC Auto (Bld) [#/Vol]Ordere d By: Teresa Lynch on 09-27-2022 WBC (Bld) [#/Vol] 12.4 10*3/uL 4.1-10.5 [facility] A1C HEMOGLOBINon 02-15-2022 HbA1c (Bld) [Mass fraction] % [employer] Other HbA1c (Bld) [Mass fraction]o n 02-15-2022 A1C HEMOGLOBIN [employer] Other Tobacco Screening.on 022 Adult depression screening assessment No [facility] DO Work Phone: Tobacco use status [facility]PH[facility] b) No [facility] DO Work Phone: A1C HEMOGLOBINon 07-27-2021 HbA1c (Bld) [Mass fraction] 11.8 % [employer] Other HbA1c (Bld) [Mass fraction]o n 07-27-2021 A1C HEMOGLOBIN [employer] Other Vital Signs Date Time Vital Sign Value Performing Clinician Facility 11-05-2024 16:13-0400 Body height 182.88 cm Teresa Lynch DO Work Phone: [facility] 11-05-2024 16:13-0400 Body mass index (BMI) [Ratio] 28.2 kg/m2 Teresagorge Fraustos DO Work Phone: [facility] 11-05-2024 16:13-0400 Body weight 94.34 kg Teresagorge Fraustos DO Work Phone: [facility] 11-05-2024 16:13-0400 Diastolic blood pressure 67 mm[Hg] Teresa Jetts DO Work Phone: [facility] 11-05-2024 16:13-0400 Heart rate 68 /min Teresa Jetts DO Work Phone: [facility] 11-05-2024 16:13-0400 Respiratory rate 18 /min Teresa Jetts DO Work Phone: [facility] 11-05-2024 16:13-0400 SaO2% (BldA) [Mass fraction] 96 % Teresagorge Fraustos DO Work Phone: [facility] 11-05-2024 16:13-0400 Systolic blood pressure 105 mm[Hg] Teresagorge Fraustos DO Work Phone: [facility] 11-05-2024 13:50-0400 Body weight 96.16 kg Teresa Fraustos DO Work Phone: [facility] 11-05-2024 13:50-0400 Diastolic blood pressure 68 mm[Hg] Teresa Jetts DO Work Phone: [facility] 11-05-2024 13:50-0400 Heart rate 70 /min Teresa Jetts DO Work Phone: [facility] 11-05-2024 13:50-0400 Respiratory rate 18 /min Teresa Jetts DO Work Phone: [facility] 11-05-2024 13:50-0400 SaO2% (BldA) [Mass fraction] 98 % Teresa Jetts DO Work Phone: [facility] 11-05-2024 13:50-0400 Systolic blood pressure 108 mm[Hg] Teresa Kuns DO Work Phone: [facility] 10-11-2024 13:40-0400 Heart rate 62 /min Teresa Fraustos DO Work Phone: [facility] 10-11-2024 13:40-0400 Respiratory rate 20 /min Teresa Fraustos DO Work Phone: [facility] 10-11-2024 08:00-0400 Body temperature 98.3 [degF] Teresa Fraustos DO Work Phone: [facility] 10-11-2024 08:00-0400 Diastolic blood pressure 68 mm[Hg] Teresa Fraustos DO Work Phone: [facility] 10-11-2024 08:00-0400 SaO2% (BldA) [Mass fraction] 96 % Teresa Fraustos DO Work Phone: [facility] 10-11-2024 08:00-0400 Systolic blood pressure 117 mm[Hg] Teresa Fraustos DO Work Phone: [facility] 10-11-2024 06:00-0400 Body weight 92.6 kg Teresa Fraustos DO Work Phone: [facility] 10-10-2024 20:48-0400 Body height 182.88 cm Teresa Fraustos DO Work Phone: [facility] 10-10-2024 20:30-0400 Diastolic blood pressure 71 mm[Hg] Teresagorge Fraustos DO Work Phone: [facility] 10-10-2024 20:30-0400 Heart rate 78 /min Teresagorge Fraustos DO Work Phone: [facility] 10-10-2024 20:30-0400 Respiratory rate 18 /min Teresagorge Fraustos DO Work Phone: [facility] 10-10-2024 20:30-0400 SaO2% (BldA) [Mass fraction] 97 % Teresa Fraustos DO Work Phone: [facility] 10-10-2024 20:30-0400 Systolic blood pressure 117 mm[Hg] Teresa Fraustos DO Work Phone: [facility] 10-10-2024 14:36-0400 Body height 182.88 cm Teresa Fraustos DO Work Phone: [facility] 10-10-2024 14:36-0400 Body temperature 97.6 [degF] Teresa Fraustos DO Work Phone: [facility] 10-10-2024 14:36-0400 Body weight 88.45 kg Teresa Fraustos DO Work Phone: [facility] 08-30-2024 09:28-0400 Body height 182.88 cm Teresa Fraustos DO Work Phone: [facility] 08-30-2024 09:28-0400 Body mass index (BMI) [Ratio] 27.1 kg/m2 Teresa Fraustos DO Work Phone: [facility] 08-30-2024 09:28-0400 Body weight 90.71 kg Teresa Fraustos DO Work Phone: [facility] 08-30-2024 09:28-0400 Diastolic blood pressure 70 mm[Hg] Teresa Fraustos DO Work Phone: [facility] 08-30-2024 09:28-0400 Heart rate 82 /min Teresa Fraustos DO Work Phone: [facility] 08-30-2024 09:28-0400 Respiratory rate 16 /min Teresa Fraustos DO Work Phone: [facility] 08-30-2024 09:28-0400 SaO2% (BldA) [Mass fraction] 99 % Teresa Fraustos DO Work Phone: [facility] 08-30-2024 09:28-0400 Systolic blood pressure 102 mm[Hg] Teresa Fraustos DO Work Phone: [facility] 08-13-2024 15:30-0400 Heart rate 66 /min Teresa Jetts DO Work Phone: [facility] 08-13-2024 15:30-0400 Respiratory rate 20 /min Teresa Fraustos DO Work Phone: [facility] 08-13-2024 15:14-0400 Diastolic blood pressure 69 mm[Hg] Teresa Jetts DO Work Phone: [facility] 08-13-2024 15:14-0400 SaO2% (BldA) [Mass fraction] 99 % Teresa Fraustos DO Work Phone: [facility] 08-13-2024 15:14-0400 Systolic blood pressure 122 mm[Hg] Teresa Jetts DO Work Phone: [facility] 08-13-2024 08:21-0400 Body temperature 97.6 [degF] Teresa Jetts DO Work Phone: [facility] 08-13-2024 06:48-0400 Body weight 91.5 kg Teresa Fraustos DO Work Phone: [facility] 08-11-2024 14:57-0400 Body height 182.88 cm Teresagorge Fraustos DO Work Phone: [facility] 08-11-2024 06:29-0400 Body height 182.88 cm Teresa Kuns DO Work Phone: [facility] 08-11-2024 06:29-0400 Body temperature 98 [degF] Teresa Kuns DO Work Phone: [facility] 08-11-2024 06:29-0400 Body weight 91.3 kg Teresa Fraustos DO Work Phone: [facility] 08-11-2024 06:29-0400 Diastolic blood pressure 61 mm[Hg] Teresa Jetts DO Work Phone: [facility] 08-11-2024 06:29-0400 Heart rate 92 /min Teresa Lynch DO Work Phone: [facility] 08-11-2024 06:29-0400 Respiratory rate 16 /min Teresa Lynch DO Work Phone: [facility] 08-11-2024 06:29-0400 SaO2% (BldA) [Mass fraction] 99 % Teresa Lynch DO Work Phone: [facility] 08-11-2024 06:29-0400 Systolic blood pressure 113 mm[Hg] Teresa Lynch DO Work Phone: [facility] 08-02-2024 09:02-0500 Blood Pressure Location MARYBEL THORNTONRY [facility] 08-02-2024 09:02-0500 Body temperature 96.98 [degF] MARYBEL RASHI [facility] 08-02-2024 09:02-0500 Diastolic blood pressure 69 mm[Hg] MARYBEL RASHI [facility] 08-02-2024 09:02-0500 Heart rate 80 /min MARYBEL RASHI [facility] 08-02-2024 09:02-0500 Respiratory rate 18 /min MARYBEL RASHI [facility] 08-02-2024 09:02-0500 Systolic blood pressure 118 mm[Hg] MARYBEL RASHI [facility] 05-27-2024 14:47-0500 Blood Pressure Location Yeyo ROWE [facility] 05-27-2024 14:47-0500 Body temperature 98.6 [degF] Yeyo ROWE [facility] 05-27-2024 14:47-0500 Diastolic blood pressure 69 mm[Hg] Yeyo ROWE [facility] 05-27-2024 14:47-0500 Heart rate 70 /min Yeyo ROWE [facility] 05-27-2024 14:47-0500 Respiratory rate 16 /min Yeyo ROWE [facility] 05-27-2024 14:47-0500 Systolic blood pressure 107 mm[Hg] Yeyo ROWE [facility] 05-07-2024 16:35-0500 Body temperature 98 [degF] Teresa Kuns DO Work Phone: [facility] 05-07-2024 16:35-0500 Diastolic blood pressure 55 mm[Hg] Teresa Kuns DO Work Phone: [facility] 05-07-2024 16:35-0500 Heart rate 79 /min Teresa Kuns DO Work Phone: [facility] 05-07-2024 16:35-0500 Respiratory rate 16 /min Teresa Kuns DO Work Phone: [facility] 05-07-2024 16:35-0500 SaO2% (BldA) [Mass fraction] 99 % Teresa Kuns DO Work Phone: [facility] 05-07-2024 16:35-0500 Systolic blood pressure 86 mm[Hg] Teresa Kuns DO Work Phone: [facility] 04-24-2024 11:04-0500 Diastolic blood pressure 60 mm[Hg] Kait Dan MD Work Phone: [facility] 04-24-2024 11:04-0500 Heart rate 86 /min Kait Dan MD Work Phone: [facility] 04-24-2024 11:04-0500 SaO2% (BldA) [Mass fraction] 99 % Kait Dan MD Work Phone: [facility] 04-24-2024 11:04-0500 Systolic blood pressure 122 mm[Hg] Kait Dan MD Work Phone: [facility] 04-23-2024 14:30-0500 Diastolic blood pressure 67 mm[Hg] Kait Dan MD Work Phone: [facility] 04-23-2024 14:30-0500 Heart rate 74 /min aKit Dan MD Work Phone: [facility] 04-23-2024 14:30-0500 Respiratory rate 18 /min Kait Dan MD Work Phone: [facility] 04-23-2024 14:30-0500 SaO2% (BldA) [Mass fraction] 98 % Kait Dan MD Work Phone: [facility] 04-23-2024 14:30-0500 Systolic blood pressure 104 mm[Hg] Kait Dan MD Work Phone: [facility] 04-23-2024 12:52-0500 Body height 182.88 cm Kait Dan MD Work Phone: [facility] 04-23-2024 12:52-0500 Body weight 88.45 kg Kait Dan MD Work Phone: [facility] 04-04-2024 16:48-0400 Body weight 88.45 kg Kait Dan MD Work Phone: [facility] 04-04-2024 14:00-0400 Diastolic blood pressure 62 mm[Hg] Kait Dan MD Work Phone: [facility] 04-04-2024 14:00-0400 Heart rate 86 /min Kait Dan MD Work Phone: [facility] 04-04-2024 14:00-0400 Respiratory rate 18 /min Kait Dan MD Work Phone: [facility] 04-04-2024 14:00-0400 SaO2% (BldA) [Mass fraction] 97 % Kait Dan MD Work Phone: [facility] 04-04-2024 14:00-0400 Systolic blood pressure 100 mm[Hg] Kait Dan MD Work Phone: [facility] 03-21-2024 10:30-0400 Diastolic blood pressure 68 mm[Hg] MD Kait Dan Work Phone: [facility] 03-21-2024 10:30-0400 Heart rate 95 /min MD Kait Dan Work Phone: [facility] 03-21-2024 10:30-0400 Systolic blood pressure 103 mm[Hg] MD Kait Dan Work Phone: [facility] 03-19-2024 17:26-0400 Body temperature 98.01 [degF] Guero Furlong DO Work Phone: [employer] 03-19-2024 17:26-0400 Diastolic blood pressure 78 mm[Hg] Guero Furlong DO Work Phone: [employer] 03-19-2024 17:26-0400 Heart rate 85 /min Guero Furlong DO Work Phone: [employer] 03-19-2024 17:26-0400 Respiratory rate 19 /min Guero Furlong DO Work Phone: [employer] 03-19-2024 17:26-0400 SaO2% (BldA) [Mass fraction] 96 % Guero Furlong DO Work Phone: [facility] [employer] 03-19-2024 17:26-0400 Systolic blood pressure 124 mm[Hg] Guero Furlong DO Work Phone: [facility] [place] [facility] [facility] 03-15-2024 18:27-0400 Body mass index (BMI) [Ratio] 26.75 kg/m2 Guero Furlong DO Work Phone: [facility] 03-15-2024 18:27-0400 Body temperature 98.01 [degF] Guero Furlong DO Work Phone: [facility] [place] [facility] [facility] 03-15-2024 18:27-0400 Body weight 89.45 kg Guero Furlong DO Work Phone: [facility] [place] [facility] [facility] 03-15-2024 18:27-0400 Diastolic blood pressure 94 mm[Hg] Guero Furlong DO Work Phone: [facility] [place] [facility] [facility] 03-15-2024 18:27-0400 Heart rate 84 /min [facility] [employer] 03-15-2024 18:27-0400 Respiratory rate 18 /min Guero Furlong DO Work Phone: [facility] [place] [facility] [facility] 03-15-2024 18:27-0400 SaO2% (BldA) [Mass fraction] 95 % Guero Furlong DO Work Phone: [facility] 03-15-2024 18:27-0400 Systolic blood pressure 131 mm[Hg] Guero Furlong DO Work Phone: [facility] 03-13-2024 11:08-0400 Body temperature 97.8 [degF] MD Kait Dan Work Phone: [facility] 03-13-2024 11:08-0400 Diastolic blood pressure 82 mm[Hg] MD Kait Dan Work Phone: [facility] 03-13-2024 11:08-0400 Heart rate 77 /min MD Kait Dan Work Phone: [facility] 03-13-2024 11:08-0400 Respiratory rate 16 /min MD Kait Dan Work Phone: [facility] 03-13-2024 11:08-0400 SaO2% (BldA) [Mass fraction] 99 % MD Kait Dan Work Phone: [facility] 03-13-2024 11:08-0400 Systolic blood pressure 149 mm[Hg] MD Kait Dan Work Phone: [facility] 03-13-2024 06:00-0400 Body weight 90.2 kg MD Kait Dan Work Phone: [facility] 03-09-2024 12:29-0400 Body height 180.34 cm MD Kait Dan Work Phone: [facility] 03-08-2024 21:00-0400 Diastolic blood pressure 72 mm[Hg] MD Kait Dan Work Phone: [facility] 03-08-2024 21:00-0400 Heart rate 93 /min MD Kait Dan Work Phone: [facility] 03-08-2024 21:00-0400 SaO2% (BldA) [Mass fraction] 97 % MD Kait Dan Work Phone: [facility] 03-08-2024 21:00-0400 Systolic blood pressure 134 mm[Hg] MD Kait Dan Work Phone: [facility] 03-08-2024 20:30-0400 Respiratory rate 16 /min MD Kait Dan Work Phone: [facility] 03-08-2024 20:07-0400 Body temperature 98.4 [degF] MD Kait Dan Work Phone: [facility] 03-08-2024 14:10-0400 Body height 180.34 cm MD Kait Dan Work Phone: [facility] 03-08-2024 14:10-0400 Body weight 89.3 kg MD Kait Dan Work Phone: [facility] 03-06-2024 15:51-0400 Body temperature 98.1 [degF] MD Kait Dan Work Phone: [facility] 03-06-2024 15:51-0400 Diastolic blood pressure 73 mm[Hg] MD Kait Dan Work Phone: [facility] 03-06-2024 15:51-0400 Heart rate 78 /min MD Kait Dan Work Phone: [facility] 03-06-2024 15:51-0400 Respiratory rate 16 /min MD Kait Dan Work Phone: [facility] 03-06-2024 15:51-0400 SaO2% (BldA) [Mass fraction] 97 % MD Kait Dan Work Phone: [facility] 03-06-2024 15:51-0400 Systolic blood pressure 140 mm[Hg] MD Kait Dan Work Phone: [facility] 03-06-2024 05:29-0400 Body weight 90.9 kg MD Kait Dan Work Phone: [facility] 03-05-2024 14:26-0400 Body height 182.88 cm MD Kait Dan Work Phone: [facility] 03-03-2024 17:00-0400 Diastolic blood pressure 67 mm[Hg] MD Kait Dan Work Phone: [facility] 03-03-2024 17:00-0400 Heart rate 86 /min MD Kait Dan Work Phone: [facility] 03-03-2024 17:00-0400 Respiratory rate 20 /min MD Kait Dan Work Phone: [facility] 03-03-2024 17:00-0400 SaO2% (BldA) [Mass fraction] 100 % MD Kait Dan Work Phone: [facility] 03-03-2024 17:00-0400 Systolic blood pressure 100 mm[Hg] MD Kait Dan Work Phone: [facility] 03-03-2024 13:45-0400 Body height 182.88 cm MD Kait Dan Work Phone: [facility] 03-03-2024 13:45-0400 Body temperature 97.9 [degF] MD Kait Dan Work Phone: [facility] 03-03-2024 13:45-0400 Body weight 91.5 kg MD Kait Dan Work Phone: [facility] 02-29-2024 09:27-0400 Body height 182.9 cm Mike Montes MD Work Phone: [facility] 02-29-2024 09:27-0400 Body mass index (BMI) [Ratio] 26.85 kg/m2 Mike Montes MD Work Phone: [facility] 02-29-2024 09:27-0400 Body temperature 98.01 [degF] Mike Montes MD Work Phone: [facility] 02-29-2024 09:27-0400 Body weight 89.81 kg Mike Montes MD Work Phone: [facility] 02-29-2024 09:27-0400 Diastolic blood pressure 62 mm[Hg] Mike Montes MD Work Phone: [facility] 02-29-2024 09:27-0400 Heart rate 77 /min Mike Montes MD Work Phone: [facility] 02-29-2024 09:27-0400 Respiratory rate 20 /min Mike Montes MD Work Phone: [facility] 02-29-2024 09:27-0400 SaO2% (BldA) [Mass fraction] 99 % Mike Montes MD Work Phone: [facility] 02-29-2024 09:27-0400 Systolic blood pressure 90 mm[Hg] Mike Montes MD Work Phone: [facility] 02-28-2024 14:52-0400 Body mass index (BMI) [Ratio] 26.65 kg/m2 Guero Furlong DO Work Phone: [facility] 02-28-2024 14:52-0400 Body temperature 98.01 [degF] Guero Furlong DO Work Phone: [facility] 02-28-2024 14:52-0400 Body weight 89.13 kg Guero Furlong DO Work Phone: [facility] 02-28-2024 14:52-0400 Diastolic blood pressure 77 mm[Hg] Guero Furlong DO Work Phone: [facility] 02-28-2024 14:52-0400 Heart rate 95 /min Guero Furlong DO Work Phone: [facility] 02-28-2024 14:52-0400 Respiratory rate 18 /min Guero Furlong DO Work Phone: [facility] 02-28-2024 14:52-0400 SaO2% (BldA) [Mass fraction] 98 % Guero Furlong DO Work Phone: [facility] 02-28-2024 14:52-0400 Systolic blood pressure 129 mm[Hg] Guero Furlong DO Work Phone: [facility] 02-21-2024 17:40-0400 Hourly Rounding Mike Montes [facility] 02-21-2024 17:40-0400 Promise to Return Mike Montes [facility] 02-21-2024 16:32-0400 Hourly Rounding Mohcarlos Simon [facility] 02-21-2024 16:32-0400 Promise to Return Mohamed Simon [facility] 02-21-2024 15:00-0400 Hourly Rounding Mike Simon [facility] 02-21-2024 15:00-0400 Promise to Return Mohcarlos Simon [facility] 02-21-2024 10:51-0400 Heart rate 70 /min Mike Simon [facility] 02-21-2024 10:51-0400 SaO2% (BldA) [Mass fraction] 100 % Mike Simon [facility] 02-21-2024 10:47-0400 Body temperature 98.06 [degF] Mohcarlos Simon [facility] 02-21-2024 10:46-0400 Diastolic blood pressure 63 mm[Hg] Albertamed Simon [facility] 02-21-2024 10:46-0400 Mean blood pressure 76 mm[Hg] Albertamed Simon [facility] 02-21-2024 10:46-0400 Systolic blood pressure 101 mm[Hg] Mohamed Simon [facility] 02-21-2024 10:15-0400 Blood Pressure Location Mohamed Simon [facility] 02-21-2024 10:15-0400 Diastolic blood pressure 58 mm[Hg] Mohamed Simon [facility] 02-21-2024 10:15-0400 Heart rate 76 /min Mohamed Simon [facility] 02-21-2024 10:15-0400 Mean blood pressure 74 mm[Hg] Mike Montes [facility] 02-21-2024 10:15-0400 SaO2% (BldA) [Mass fraction] 100 % Mike Simon [facility] 02-21-2024 10:15-0400 Systolic blood pressure 106 mm[Hg] Mike Simon [facility] 02-21-2024 08:27-0400 Diastolic blood pressure 61 mm[Hg] Mike Simon [facility] 02-21-2024 08:27-0400 Systolic blood pressure 100 mm[Hg] Mike Simon [facility] 02-21-2024 08:25-0400 Heart rate 50 /min Mike Halean [facility] 02-21-2024 07:36-0400 Heart rate 68 /min Mike Simon [facility] 02-21-2024 07:36-0400 SaO2% (BldA) [Mass fraction] 100 % Mike Montes [facility] 02-21-2024 07:36-0400 Mean blood pressure 74 mm[Hg] Mike Simon [facility] 02-21-2024 07:36-0400 Body temperature 97.52 [degF] Mike Simon [facility] 02-21-2024 00:00-0400 Blood Pressure Location Mike Simon [facility] 02-21-2024 00:00-0400 Body temperature 97.52 [degF] Mike Simon [facility] 02-21-2024 00:00-0400 Mean blood pressure 77 mm[Hg] Mike Simon [facility] 02-20-2024 21:16-0400 Heart rate 83 /min Mohcarlos Simon [facility] 02-20-2024 19:29-0400 Mean blood pressure 82 mm[Hg] Mohamed Simon [facility] 02-20-2024 19:29-0400 Body temperature 98.06 [degF] Mohamed Simon [facility] 02-20-2024 15:37-0400 gluc 104 mg/dL Mohamed Simon [facility] 02-20-2024 11:00-0400 Body temperature 98.42 [degF] Mohamed Simon [facility] 02-20-2024 11:00-0400 gluc 165 mg/dL Mohamed Simon [facility] 02-20-2024 11:00-0400 Mean blood pressure 81 mm[Hg] Mike Simon [facility] 02-20-2024 09:36-0400 Heart rate 96 /min Mohamed Simon [facility] 02-20-2024 09:00-0400 gluc 250 mg/dL Mohamed Simon [facility] 02-20-2024 09:00-0400 Respiratory rate 16 /min Mohamed Simon [facility] 02-20-2024 05:00-0400 Respiratory rate 18 /min Mohamed Simon [facility] 02-19-2024 23:00-0400 Respiratory rate 18 /min Mohamed Simon [facility] 02-15-2024 05:17-0400 Heart rate 83 /min Mohamed Simon [facility] 02-15-2024 00:28-0400 Heart rate 83 /min Mike Montes [facility] 02-14-2024 06:15-0400 Heart rate 89 /min Mike Montes [facility] 02-12-2024 16:40-0400 Respiratory rate 17 /min Mike Montes [facility] 02-12-2024 16:15-0400 Body temperature 97.7 [degF] Mike Montes [facility] 02-12-2024 16:15-0400 Respiratory rate 19 /min Mike Montes [facility] 02-12-2024 16:00-0400 Respiratory rate 18 /min Mike Montes [facility] 02-12-2024 14:46-0400 Body temperature 98.06 [degF] Mike Montes [facility] 01-18-2024 08:56-0400 Body height 182.9 cm Mike Montes MD Work Phone: [facility] 01-18-2024 08:56-0400 Body mass index (BMI) [Ratio] 27.8 kg/m2 Mike Montes MD Work Phone: [facility] 01-18-2024 08:56-0400 Body weight 92.99 kg Mike Montes MD Work Phone: [facility] 01-18-2024 08:56-0400 Diastolic blood pressure 67 mm[Hg] Mike Montes MD Work Phone: [facility] 01-18-2024 08:56-0400 Heart rate 122 /min Mike Montes MD Work Phone: [facility] 01-18-2024 08:56-0400 SaO2% (BldA) [Mass fraction] 100 % Mike Montes MD Work Phone: [facility] 01-18-2024 08:56-0400 Systolic blood pressure 108 mm[Hg] Mike Montes MD Work Phone: [facility] 01-17-2024 12:34-0400 Body height 182.[address] 01-17-2024 12:34-0400 Body mass index (BMI) [Ratio] 28.62 kg/m2 [address] 01-17-2024 12:34-0400 Body weight 95.[address] 01-17-2024 12:34-0400 Diastolic blood pressure 58 mm[Hg] [address] 01-17-2024 12:34-0400 Systolic blood pressure 102 mm[Hg] [address] 11-30-2023 23:10-0400 Body mass index (BMI) [Ratio] 27.86 kg/m2 Guero Furlong DO Work Phone: [facility] 11-30-2023 23:10-0400 Body temperature 97.3 [degF] Guero Furlong DO Work Phone: [facility] 11-30-2023 23:10-0400 Body weight 93.17 kg Guero Furlong DO Work Phone: [facility] 11-30-2023 23:10-0400 Diastolic blood pressure 74 mm[Hg] Guero Furlong DO Work Phone: [facility] 11-30-2023 23:10-0400 Heart rate 70 /min Guero Furlong DO Work Phone: [facility] 11-30-2023 23:10-0400 Respiratory rate 18 /min Guero Furlong DO Work Phone: [facility] 11-30-2023 23:10-0400 SaO2% (BldA) [Mass fraction] 98 % Guero Furlong DO Work Phone: [facility] 11-30-2023 23:10-0400 Systolic blood pressure 122 mm[Hg] Guero Furlong DO Work Phone: [facility] 11-30-2023 08:49-0400 Body height 182.9 cm Mike Montes MD Work Phone: [facility] 11-30-2023 08:49-0400 Body mass index (BMI) [Ratio] 28.21 kg/m2 Mike Montes MD Work Phone: [facility] 11-30-2023 08:49-0400 Body weight 94.35 kg Mike Montes MD Work Phone: [facility] 11-30-2023 08:49-0400 Diastolic blood pressure 78 mm[Hg] Mike Montes MD Work Phone: [facility] 11-30-2023 08:49-0400 Heart rate 94 /min Mike Montes MD Work Phone: [facility] 11-30-2023 08:49-0400 SaO2% (BldA) [Mass fraction] 99 % Mike Montes MD Work Phone: [facility] 11-30-2023 08:49-0400 Systolic blood pressure 109 mm[Hg] Mike Montes MD Work Phone: [facility] 11-24-2023 18:59-0400 Body mass index (BMI) [Ratio] 27.85 kg/m2 Guero Furlong DO Work Phone: [facility] 11-24-2023 18:59-0400 Body temperature 98.4 [degF] Guero Furlong DO Work Phone: [facility] 11-24-2023 18:59-0400 Body weight 93.17 kg Guero Furlong DO Work Phone: [facility] 11-24-2023 18:59-0400 Diastolic blood pressure 70 mm[Hg] Guero Furlong DO Work Phone: [facility] 11-24-2023 18:59-0400 Heart rate 68 /min Guero Furlong DO Work Phone: [facility] 11-24-2023 18:59-0400 Systolic blood pressure 122 mm[Hg] Guero Furlong DO Work Phone: [facility] 11-07-2023 15:50-0400 Body temperature 98.4 [degF] Guero Furlong DO Work Phone: [facility] 11-07-2023 15:50-0400 Diastolic blood pressure 97 mm[Hg] Guero Furlong DO Work Phone: [facility] 11-07-2023 15:50-0400 Heart rate 77 /min Guero Furlong DO Work Phone: [facility] 11-07-2023 15:50-0400 Systolic blood pressure 157 mm[Hg] Guero Furlong DO Work Phone: [facility] 11-03-2023 14:11-0400 Body mass index (BMI) [Ratio] 28.02 kg/m2 Guero Furlong DO Work Phone: [facility] 11-03-2023 14:11-0400 Body temperature 97.7 [degF] Guero Furlong DO Work Phone: [facility] 11-03-2023 14:11-0400 Body weight 93.71 kg Guero Furlong DO Work Phone: [facility] 11-03-2023 14:11-0400 Diastolic blood pressure 76 mm[Hg] Guero Furlong DO Work Phone: [facility] 11-03-2023 14:11-0400 Heart rate 75 /min Guero Furlong DO Work Phone: [facility] 11-03-2023 14:11-0400 Respiratory rate 20 /min Guero Furlong DO Work Phone: [facility] 11-03-2023 14:11-0400 SaO2% (BldA) [Mass fraction] 97 % Guero Furlong DO Work Phone: [facility] [employer] [facility] 11-03-2023 14:11-0400 Systolic blood pressure 122 mm[Hg] Guero Furlong DO Work Phone: [facility] [employer] 10-25-2023 22:00-0400 Body mass index (BMI) [Ratio] 29.7 kg/m2 Guero Furlong DO Work Phone: [facility] [employer] 10-25-2023 22:00-0400 Body temperature 97.59 [degF] Guero Furlong DO Work Phone: [facility] [employer] 10-25-2023 22:00-0400 Body weight 99.34 kg Guero Furlong DO Work Phone: [facility] [employer] 10-25-2023 22:00-0400 Diastolic blood pressure 68 mm[Hg] Guero Furlong DO Work Phone: [facility] [employer] 10-25-2023 22:00-0400 Heart rate 70 /min Guero Furlong DO Work Phone: [facility] [employer] [employer] 10-25-2023 22:00-0400 Respiratory rate 20 /min Guero Furlong DO Work Phone: [facility] [employer] 10-25-2023 22:00-0400 SaO2% (BldA) [Mass fraction] 97 % Guero Furlong DO Work Phone: [facility] [employer] 10-25-2023 22:00-0400 Systolic blood pressure 128 mm[Hg] Guero Furlong DO Work Phone: [facility] [employer] 10-24-2023 10:56-0400 Body height 182.9 cm Raulito Inman MD Work Phone: [facility] 10-24-2023 10:56-0400 Diastolic blood pressure 86 mm[Hg] Raulito Inman MD Work Phone: [facility] 10-24-2023 10:56-0400 Heart rate 104 /min Raulito Inman MD Work Phone: [facility] 10-24-2023 10:56-0400 Systolic blood pressure 134 mm[Hg] Raulito Inman MD Work Phone: [facility] 10-23-2023 09:37-0400 Blood Pressure Location Mike Montes [facility] 10-23-2023 09:37-0400 Diastolic blood pressure 82 mm[Hg] Mike Montes [facility] 10-23-2023 09:37-0400 Heart rate 107 /min Mike Montes [facility] 10-23-2023 09:37-0400 SaO2% (BldA) [Mass fraction] 98 % Mike Montes [facility] 10-23-2023 09:37-0400 Systolic blood pressure 130 mm[Hg] Mike Montes [facility] 10-18-2023 08:26-0400 Diastolic blood pressure 90 mm[Hg] Mike Montes MD Work Phone: [facility] 10-18-2023 08:26-0400 Systolic blood pressure 138 mm[Hg] Mike Montes MD Work Phone: [facility] 10-18-2023 08:25-0400 Body height 182.9 cm Mike Montes MD Work Phone: [facility] 10-18-2023 08:25-0400 Body mass index (BMI) [Ratio] 28.07 kg/m2 Mike Montes MD Work Phone: [facility] 10-18-2023 08:25-0400 Body weight 93.89 kg Mike Montes MD Work Phone: [facility] 10-17-2023 13:51-0400 Body temperature 98.4 [degF] Guero Furlong DO Work Phone: [facility] 10-17-2023 13:51-0400 Body weight 93.89 kg Guero Furlong DO Work Phone: [facility] 10-17-2023 13:51-0400 Diastolic blood pressure 70 mm[Hg] Guero Furlong DO Work Phone: [facility] 10-17-2023 13:51-0400 Heart rate 94 /min Guero Furlong DO Work Phone: [facility] 10-17-2023 13:51-0400 Respiratory rate 18 /min Guero Furlong DO Work Phone: [facility] 10-17-2023 13:51-0400 SaO2% (BldA) [Mass fraction] 97 % Guero Furlong DO Work Phone: [facility] 10-17-2023 13:51-0400 Systolic blood pressure 132 mm[Hg] Guero Furlong DO Work Phone: [facility] 10-10-2023 23:33-0400 Body temperature 98.1 [degF] Guero Furlong DO Work Phone: [facility] 10-10-2023 23:33-0400 Diastolic blood pressure 78 mm[Hg] Guero Furlong DO Work Phone: [facility] 10-10-2023 23:33-0400 Heart rate 102 /min Guero Furlong DO Work Phone: [facility] 10-10-2023 23:33-0400 Respiratory rate 18 /min Guero Furlong DO Work Phone: [facility] 10-10-2023 23:33-0400 SaO2% (BldA) [Mass fraction] 98 % Guero Furlong DO Work Phone: [facility] 10-10-2023 23:33-0400 Systolic blood pressure 142 mm[Hg] Guero Furlong DO Work Phone: [facility] 10-06-2023 16:50-0400 Body temperature 98.4 [degF] Guero Furlong DO Work Phone: [facility] 10-06-2023 16:50-0400 Body weight 93.89 kg Guero Furlong DO Work Phone: [facility] 10-06-2023 16:50-0400 Diastolic blood pressure 71 mm[Hg] Guero Furlong DO Work Phone: [facility] 10-06-2023 16:50-0400 Heart rate 98 /min Guero Furlong DO Work Phone: [facility] 10-06-2023 16:50-0400 Respiratory rate 18 /min Guero Furlong DO Work Phone: [facility] 10-06-2023 16:50-0400 SaO2% (BldA) [Mass fraction] 96 % Guero Furlong DO Work Phone: [facility] 10-06-2023 16:50-0400 Systolic blood pressure 117 mm[Hg] Guero Furlong DO Work Phone: [facility] 07-31-2023 12:00-0500 Diastolic blood pressure 63 mm[Hg] DO Teresa Jetts Work Phone: [facility] 07-31-2023 12:00-0500 Heart rate 75 /min DO Teresa Kuns Work Phone: [facility] 07-31-2023 12:00-0500 Systolic blood pressure 108 mm[Hg] DO Teresa Kuns Work Phone: [facility] 07-31-2023 08:33-0500 Respiratory rate 18 /min DO Teresa Jetts Work Phone: [facility] 07-12-2023 18:03-0500 Diastolic blood pressure 73 mm[Hg] DO Teresa Kuns Work Phone: [facility] 07-12-2023 18:03-0500 Heart rate 76 /min DO Teresagorge Fraustos Work Phone: [facility] 07-12-2023 18:03-0500 Respiratory rate 20 /min DO Teresa Fraustos Work Phone: [facility] 07-12-2023 18:03-0500 SaO2% (BldA) [Mass fraction] 98 % DO Teresa Jetts Work Phone: [facility] 07-12-2023 18:03-0500 Systolic blood pressure 125 mm[Hg] DO Teresagorge Fraustos Work Phone: [facility] 07-12-2023 16:15-0500 Body height 182.88 cm DO Teresa Lynch Work Phone: [facility] 07-12-2023 16:15-0500 Body temperature 98.9 [degF] DO Teresa Lynch Work Phone: [facility] 07-12-2023 16:15-0500 Body weight 99.25 kg DO Teresa Lynch Work Phone: [facility] 06-02-2023 10:56-0500 Blood Pressure Location Yeyo ROWE [facility] 06-02-2023 10:56-0500 Body temperature 96.98 [degF] Yeyo ROWE [facility] 06-02-2023 10:56-0500 Diastolic blood pressure 84 mm[Hg] Yeyo ROWE [facility] 06-02-2023 10:56-0500 Heart rate 68 /min Yeyo ROWE [facility] 06-02-2023 10:56-0500 Systolic blood pressure 124 mm[Hg] Yeyo ROWE [facility] 04-06-2023 13:15-0400 Body height 180.34 cm Teresa Lynch Other [employer] Other 04-06-2023 13:15-0400 Body mass index (BMI) [Ratio] 29.43 kg/m2 Teresa Lynch Other [employer] Other 04-06-2023 13:15-0400 Body weight 95.71 kg Teresa Lynch Other [employer] Other 04-06-2023 13:15-0400 Diastolic blood pressure 70 mm[Hg] Teresa Lynch Other [employer] Other 04-06-2023 13:15-0400 Respiratory rate 18 /min Teresa Lynch Other [employer] Other 04-06-2023 13:15-0400 SaO2% (BldA) [Mass fraction] 97 % Teresa Lynch Other [employer] Other 04-06-2023 13:15-0400 Systolic blood pressure 100 mm[Hg] Teresa Lynch Other [employer] Other 03-15-2023 08:30-0400 Body height 180.34 cm Teresa Lynch Other [employer] Other 03-15-2023 08:30-0400 Body mass index (BMI) [Ratio] 29.01 kg/m2 Teresa Lynch Other [employer] Other 03-15-2023 08:30-0400 Body weight 94.35 kg Teresa Lynch Other [employer] Other 03-15-2023 08:30-0400 Diastolic blood pressure 62 mm[Hg] Teresa Lynch Other [employer] Other 03-15-2023 08:30-0400 Respiratory rate 16 /min Teresa Lynch Other [employer] Other 03-15-2023 08:30-0400 SaO2% (BldA) [Mass fraction] 97 % Teresa Lynch Other [employer] Other 03-15-2023 08:30-0400 Systolic blood pressure 88 mm[Hg] Teresa Lynch Other [employer] Other 02-15-2023 10:04-0400 Body height 182.88 cm Teresa Lynch Work Phone: [employer] DO Work Phone: 02-15-2023 10:04-0400 Body mass index (BMI) [Ratio] 28.62 kg/m2 Teresa Fraustojoe Work Phone: [employer] [facility] [employer] DO Work Phone: 02-15-2023 10:04-0400 Body surface area Derived from formula 2.18 m2 Teresa Lynch Work Phone: [employer] [facility] [employer] 250 DO Work Phone: 02-15-2023 10:04-0400 Body weight 95.71 kg Teresa Mari Lynch Work Phone: [facility] [employer] DO Work Phone: 02-15-2023 10:04-0400 Diastolic blood pressure 70 mm[Hg] Teresa Fraustos Work Phone: [facility] [employer] DO Work Phone: 02-15-2023 10:04-0400 Heart rate 76 /min Teresa Fraustos Work Phone: [facility] [employer] DO Work Phone: 02-15-2023 10:04-0400 Systolic blood pressure 102 mm[Hg] Teresa Fraustos Work Phone: [facility] [employer] DO Work Phone: 01-30-2023 10:23-0400 Blood Pressure Location Yeyoneel ROWE [facility] 01-30-2023 10:23-0400 Diastolic blood pressure 74 mm[Hg] Yeyo ROWE [facility] 01-30-2023 10:23-0400 Heart rate 68 /min Yeyo ROWE [facility] 01-30-2023 10:23-0400 Respiratory rate 16 /min Yeyo ROWE [facility] 01-30-2023 10:23-0400 Systolic blood pressure 130 mm[Hg] Yeyo ROWE [facility] 01-11-2023 15:08-0400 Body height 180.34 cm Teresa Guerra Jetts Work Phone: [facility]-[place] 600 DO Work Phone: 01-11-2023 15:08-0400 Body mass index (BMI) [Ratio] 30.13 kg/m2 Teresa Lynch Work Phone: [facility] [employer] 600 DO Work Phone: 01-11-2023 15:08-0400 Body surface area Derived from formula 2.18 m2 Teresa Lynch Work Phone: [facility] ServicesEffRx PharmaceuticalsSan [place] 600 DO Work Phone: 01-11-2023 15:08-0400 Body weight 97.98 kg Teresa Lynch Work Phone: [facility]-[place] 600 DO Work Phone: 01-11-2023 15:08-0400 Diastolic blood pressure 86 mm[Hg] Teresa [facility]: [facility] DO Work Phone: 01-11-2023 15:08-0400 Heart rate 74 /min Teresa Lynch Work Phone: [facility]-[place] 600 DO Work Phone: 01-11-2023 15:08-0400 Systolic blood pressure 122 mm[Hg] Teresa Lynch Work Phone: [facility] 600 DO Work Phone: 12-01-2022 12:45-0400 Body height 180.34 cm Teresa Lynch Other [facility] [employer] Other 12-01-2022 12:45-0400 Body mass index (BMI) [Ratio] 29.73 kg/m2 Teresa Lynch Other [facility] [employer] Other 12-01-2022 12:45-0400 Body weight 96.71 kg Teresa Lynch Other [employer] Other 12-01-2022 12:45-0400 Diastolic blood pressure 70 mm[Hg] Teresa Lynch Other [employer] Other 12-01-2022 12:45-0400 Respiratory rate 18 /min Teresa Lynch Other [employer] Other 12-01-2022 12:45-0400 SaO2% (BldA) [Mass fraction] 94 % Teresa Lynch Other [employer] Other 12-01-2022 12:45-0400 Systolic blood pressure 122 mm[Hg] Teresa Lynch Other [employer] Other 11-23-2022 11:38-0400 Blood Pressure Location Yeyo [employer] [facility] 11-23-2022 11:38-0400 Diastolic blood pressure 85 mm[Hg] [email or web address] [facility] 11-23-2022 11:38-0400 Heart rate 76 /min [email or web address] [facility] 11-23-2022 11:38-0400 Systolic blood pressure 130 mm[Hg] Yeyo ROWE [facility] 07-04-2022 10:30-0500 Body height 180.34 cm Teresa Lynch Other [employer] Other 07-04-2022 10:30-0500 Body mass index (BMI) [Ratio] 29.43 kg/m2 Teresa Lynch Other [employer] Other 07-04-2022 10:30-0500 Body weight 95.71 kg Teresa Lynch Other [employer] Other 07-04-2022 10:30-0500 Diastolic blood pressure 86 mm[Hg] Teresagorge Lynch Other [employer] Other 07-04-2022 10:30-0500 Respiratory rate 16 /min Teresa Lynch Other [employer] Other 07-04-2022 10:30-0500 Systolic blood pressure 146 mm[Hg] Teresa Rory Other [employer] Other 02-15-2022 13:45-0400 Body height 180.34 cm Teresa Fraustojoe Other [employer] Other 02-15-2022 13:45-0400 Body mass index (BMI) [Ratio] 30.12 kg/m2 Teresa Fraustojoe Other [employer] Other 02-15-2022 13:45-0400 Body weight 97.98 kg Teresa Lynch Other [employer] Other 02-15-2022 13:45-0400 Diastolic blood pressure 62 mm[Hg] Teresa Rory Other [employer] Other 02-15-2022 13:45-0400 Respiratory rate 16 /min Teresa Fraustojoe Other [employer] Other 02-15-2022 13:45-0400 SaO2% (BldA) [Mass fraction] 96 % Teresa Lynch Other [employer] Other 02-15-2022 13:45-0400 Systolic blood pressure 100 mm[Hg] Teresa Lynch Other [facility] [employer] Other 10-26-2021 10:01-0400 Body height 180.34 cm Teresagorge Lynch Work Phone: [facility] 250 DO Work Phone: 10-26-2021 10:01-0400 Body mass index (BMI) [Ratio] 29.99 kg/m2 Teresa Lynch Work Phone: [facility] 250 DO Work Phone: 10-26-2021 10:01-0400 Body surface area Derived from formula 2.17 m2 Teresa Mari Lynch Work Phone: [facility] 250 DO Work Phone: 10-26-2021 10:01-0400 Body weight 97.52 kg Teresa Lynch Work Phone: [facility] 250 DO Work Phone: 10-26-2021 10:01-0400 Diastolic blood pressure 70 mm[Hg] Teresa Mari Lynch Work Phone: [facility] 250 DO Work Phone: 10-26-2021 10:01-0400 Heart rate 68 /min Teresa Lynch Work Phone: [facility] 250 DO Work Phone: 10-26-2021 10:01-0400 Systolic blood pressure 104 mm[Hg] Teresa Mari Fraustos Work Phone: [facility] [employer] DO Work Phone: 10-19-2021 12:20-0400 Body height 180.34 cm Amina Fagan Other [employer] Other 10-19-2021 12:20-0400 Body mass index (BMI) [Ratio] 30.65 kg/m2 Amina Fagan Other [employer] Other 10-19-2021 12:20-0400 Body temperature 96.8 [degF] Amina Fagan Other [employer] Other 10-19-2021 12:20-0400 Body weight 99.7 kg Amina Fagan Other [employer] Other 10-19-2021 12:20-0400 Diastolic blood pressure 71 mm[Hg] Amina Fagan Other [employer] Other 10-19-2021 12:20-0400 Respiratory rate 18 /min Amina Fagan Other [employer] Other 10-19-2021 12:20-0400 SaO2% (BldA) [Mass fraction] 98 % Amina Fagan Other [employer] Other 10-19-2021 12:20-0400 Systolic blood pressure 111 mm[Hg] Amina Fagan Other [employer] Other 07-27-2021 14:00-0500 Body height 180.34 cm Teresa Lynch Other [employer] Other 07-27-2021 14:00-0500 Body mass index (BMI) [Ratio] 30.4 kg/m2 Teresa Lynch Other [employer] Other 07-27-2021 14:00-0500 Body weight 98.88 kg Teresa Lynch Other [employer] Other 07-27-2021 14:00-0500 Diastolic blood pressure 76 mm[Hg] Teresa Lynch Other [employer] Other 07-27-2021 14:00-0500 Respiratory rate 18 /min Teresa Lynch Other [employer] Other 07-27-2021 14:00-0500 SaO2% (BldA) [Mass fraction] 98 % Teresa Lynch Other [employer] Other 07-27-2021 14:00-0500 Systolic blood pressure 112 mm[Hg] Teresa Lynch Other [employer] Other Encounters Encounter Date Encounter Type Care Provider Facility Start: 01-31-2025 ambulatory Yeyo Ley ty:[facility] Start: 11-05-2024 End: 11-05-2024 ambulatory Teresa Lynch DO Work Phone: [facility] Work Phone: Start: 11-05-2024 End: 11-05-2024 Teresa Lynch DO Work Phone: [facility] Work Phone: Start: 11-05-2024 End: 11-05-2024 ambulatory Teresa Lynch DO Work Phone: [facility] Work Phone: Start: 11-05-2024 End: 11-05-2024 Teresa Lynch DO Work Phone[facility] [place] Work Phone: Start: 10-26-2024 End: 10-26-2024 Patient encounter procedure Teresa Fraustojoe DO Work Phone: [facility] [place] Work Phone: Start: 10-26-2024 End: 10-26-2024 Teresa Lynch DO Work Phone: [facility] [place] Work Phone: Start: 10-26-2024 End: 10-26-2024 ambulatory Teresa Lynch DO Work Phone: [facility] Work Phone: Start: 10-10-2024 End: 10-11-2024 ambulatory Teresa Lynch Facility:[facility] Start: 10-10-2024 End: 10-11-2024 Evaluation and management of inpatient Teresa Lynch DO Work Phone: [facility] Work Phone: Start: 10-10-2024 observation encounter Teresa ramirez DO Work Phone: [facility] Work Phone: Start: 10-10-2024 End: 10-11-2024 Teresa Lynch DO Work Phone: [facility] [place] [facility] Work Phone: Start: 10-04-2024 ambulatory MARYBEL Ley ty:[facility] Start: 09-27-2024 End: 09-27-2024 ambulatory Yeyo ROWE Facility:[facility] Start: 08-30-2024 End: 08-30-2024 ambulatory Teresa Lynch DO Work Phone: [facility] Work Phone: Start: 08-30-2024 End: 08-30-2024 Patient encounter procedure Teresa Rory DO Work Phone: [facility] [place] Work Phone: Start: 08-30-2024 End: 08-30-2024 Teresa Lynch DO Work Phone: [facility] [place] Work Phone: Start: 08-11-2024 Non-patient / Non-visit Teresa Lynch DO Work Phone: [facility] Work Phone: Start: 08-11-2024 Teresa Lynch DO Work Phone: [facility] [place] Work Phone: Start: 08-11-2024 End: 08-13-2024 Evaluation and management of inpatient Teresa Lynch DO Work Phone: [facility] Work Phone: Start: 08-11-2024 End: 08-13-2024 Teresa Lynch DO Work Phone: [facility] Work Phone: Start: 08-02-2024 End: 08-02-2024 ambulatory MARYBEL VANG Facility:[facility] Start: 08-02-2024 End: 08-02-2024 Patient encounter procedure MARYBEL VANG [facility] Start: 07-24-2024 Non-patient / Non-visit Teresa Lynch DO Work Phone: [facility] [place] [employer] Work Phone: Start: 07-23-2024 End: 07-23-2024 Discharged Recurring Teresa Lynch DO Work Phone: [facility]-Physical Therapy [place] [employer] [employer] [place] Start: 07-23-2024 Registered Recurring Teresa diaz DO Work Phone: [facility] [place] [employer] [place] [employer] [place] Start: 07-23-2024 End: 07-23-2024 ambulatory Teresa Lynch DO Work Phone: [facility] Work Phone: Start: 05-27-2024 End: 05-27-2024 ambulatory Yeyo ROWE Facility:[facility] Start: 05-27-2024 End: 05-27-2024 Lab Drop off Yeyo ROWE [facility] Start: 05-27-2024 End: 05-27-2024 ambulatory Yeyo ROWE Facility:[facility] Start: 05-27-2024 End: 05-27-2024 Patient encounter procedure Yeyo ROWE [facility] Start: 05-07-2024 End: 05-07-2024 Patient encounter procedure Teresa Rory DO Work Phone: [facility] [place] Work Phone: Start: 04-24-2024 End: 04-24-2024 ambulatory Kait Dan MD Work Phone: [facility] Work Phone: Start: 04-24-2024 End: 04-24-2024 Patient encounter procedure Kait Dan MD Work Phone: [facility] Work Phone: Start: 04-23-2024 Non-patient / Non-visit Kait Dan MD Work Phone: [facility] Work Phone: Start: 04-23-2024 End: 04-23-2024 Admission to same day surgery center Kait Dan MD Work Phone: [facility] Work Phone: Start: 04-23-2024 End: 04-23-2024 ambulatory Kait Dan MD Work Phone: [facility] Work Phone: Start: 04-19-2024 Non-patient / Non-visit Kait Dan MD Work Phone: [facility] Family [facility] Work Phone: Start: 04-04-2024 End: 04-04-2024 ambulatory MD Kait Dan Work Phone: [facility] Work Phone: Start: 04-04-2024 End: 04-04-2024 Patient encounter procedure MD Kait Dan Work Phone: [facility] Work Phone: Start: 03-29-2024 Non-patient / Non-visit MD Jeremi Dan Work Phone: [facility] Work Phone: Start: 03-22-2024 End: 03-22-2024 Telephone encounter Moncho Jaime Call Mal blum Comment on above: Blood Sugar Problem (High blood sugars) Start: 03-21-2024 End: 03-21-2024 ambulatory MD Kait Dan Work Phone: [facility] Work Phone: Comment on above: History of right bel ow knee amputation ([facility]-HCC) (Primary Dx) Start: 03-21-2024 End: 03-21-2024 Patient encounter procedure MD Kait Dan Work Phone: [facility] Gastroenterology Work Phone: Start: 03-21-2024 End: 03-21-2024 MD Kait Dan Work Phone: [facility] Work Phone: Start: 03-19-2024 End: 03-19-2024 ambulatory Guero Tam DO Work Phone: [facility] Comment on above: Diabetic polyneuropa thy associated with type 2 diabetes mellitus ([facility]-HCC) (Primary Dx); Encounter for orthopedic aftercare following surgical amputation; Other abnormalities of gait and mobility; Restless leg syndrome Start: 03-15-2024 End: 03-15-2024 ambulatory Guero Tam DO Work Phone: [facility] Internal [facility] - Family Medicine Comment on above: Diabetic polyneuropa thy associated with type 2 diabetes mellitus (CMS-HCC) (Primary Dx); Disorientation; Other abnormalities of gait and mobility; Status post partial amputation of right foot ([facility]-HCC); Atherosclerosis of [place] coronary artery of [place] heart without angina pectoris; Atrial fibrillation ([facility]); Primary hypertension Start: 03-15-2024 End: 03-15-2024 Telephone encounter Nancy Kim [facility] Start: 03-12-2024 ambulatory [facility] Start: 03-10-2024 Non-patient / Non-visit MD Jeremi Dan Work Phone: [facility] Physician [facility] Gastroenterology Work Phone: Start: 03-10-2024 MD Kait richmond Work Phone: [facility] Physician [facility] Gastroenterology Work Phone: Start: 03-09-2024 Non-patient / Non-visit MD Jeremi Dan Work Phone: [facility] Physician [facility] Med OutPt Work Phone: Start: 03-09-2024 MD Kait richmond Work Phone: [facility] Med OutPt Work Phone: Start: 03-08-2024 End: 03-13-2024 Evaluation and management of inpatient MD Kait Dan Work Phone: [facility] Work Phone: Start: 03-08-2024 End: 03-13-2024 MD Kait Dan Work Phone: [facility] Work Phone: Start: 03-08-2024 End: 03-10-2024 Emergency department patient visit MIKE MONTES [facility] Start: 03-05-2024 Non-patient / Non-visit MD Jeremi Dan Work Phone: [facility] Gastroenterology Work Phone: Start: 03-05-2024 MD Kait richmond Work Phone: [facility] Gastroenterology Work Phone: Start: 03-04-2024 End: 03-06-2024 Evaluation and management of inpatient MD Kait Dan Work Phone: [facility] Work Phone: Start: 03-04-2024 End: 03-06-2024 MD Kait Dan Work Phone: [facility] Work Phone: Start: 03-03-2024 Evaluation and management of inpatient MD Kait Dan Work Phone: [facility] Work Phone: Start: 03-03-2024 observation encounter MD Vikas Dan Work Phone: [facility] Work Phone: Start: 02-29-2024 End: 02-29-2024 Postop follow up visit related to original px Mike Montes MD Work Phone: [facility] Comment on above: PAD (peripheral iliana ry disease) ([facility]-HCC) (Primary Dx) Start: 02-28-2024 End: 02-28-2024 ambulatory Guero Tam DO Work Phone: [facility] - [facility] Comment on above: Encounter for orthop edic aftercare following surgical amputation (Primary Dx); Cigarette smoker; Diabetic polyneuropathy associated with type 2 diabetes mellitus (CMS-HCC); Other abnormalities of gait and mobility; Muscle spasm Start: 02-23-2024 End: 02-28-2024 ambulatory Guero Tam DO [facility]: [facility] Comment on above: Encounter for orthop edic aftercare following surgical amputation (Primary Dx); Other abnormalities of gait and mobility; BPH with obstruction/lower urinary tract symptoms; Diabetic polyneuropathy associated with type 2 diabetes mellitus (CMS-HCC); Atherosclerosis of [place] coronary artery of [place] heart without angina pectoris; Heart failure, unspecified HF chronicity, unspecified heart failure type (CMS-HCC); Primary hypertension; Peripheral arterial disease (CMS-HCC); Chronic obstructive pulmonary disease, unspecified COPD type (CMS-HCC); Gastroesophageal reflux disease, unspecified whether esophagitis present; Muscle weakness (generalized) Start: 02-12-2024 End: 02-21-2024 Evaluation and management of inpatient MD Mike Montes Facility:[facility] Start: 02-12-2024 ambulatory Yeyo Ley ty:CAL Carey Start: 02-12-2024 ambulatory Mike Ruizi ty:[facility] Start: 02-12-2024 End: 02-21-2024 Evaluation and management of inpatient Mike Montes [facility] Start: 02-08-2024 Non-patient / Non-visit MD Jeremi Dan Work Phone: [facility] Physician [facility] [place] [facility] Work Phone: Start: 02-08-2024 MD Kait richmond Work Phone: [facility] Physician [facility] [place] [facility] Work Phone: Start: 02-01-2024 End: 02-01-2024 Clinisync Result Encounter Mike Montes MD Work Phone: [facility] External Department Unsolicited Start: 02-01-2024 End: 02-01-2024 Clinisync Result Encounter Mike Montes MD Work Phone: [facility] External Department Unsolicited Start: 02-01-2024 Non-patient / Non-visit MD Jreemi Dan Work Phone: [facility] Work Phone: Start: 02-01-2024 MD Kait richmond Work Phone: [facility] Work Phone: Start: 01-24-2024 Non-patient / Non-visit MD Jeremi Dan Work Phone: [facility] Physician [facility] [place] Work Phone: Start: 01-24-2024 MD Kait richmond Work Phone: [facility] [place] Work Phone: Start: 01-18-2024 End: 01-18-2024 Office outpatient visit 25 minutes Mike Montes MD Work Phone: [facility] Comment on above: 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 (CMS-HCC) (Primary Dx); Cigarette smoker Start: 01-17-2024 End: 01-17-2024 ambulatory [facility] Start: 01-17-2024 End: 01-17-2024 Subsequent hospital visit by physician Fabiana Allred Echo/Vasc Room [facility] Comment on above: Shortness of breath Start: 01-08-2024 End: 01-08-2024 ambulatory MD Mike Montes Facility:[facility] Start: 01-03-2024 Non-patient / Non-visit MD Jeremi Dan Work Phone: [facility] Physician [facility] [place] Work Phone: Start: 01-03-2024 MD Kait richmond Work Phone: [facility] [place] Work Phone: Start: 01-01-2024 End: 01-01-2024 ambulatory [facility] Start: 01-01-2024 End: 01-01-2024 Encounter for preprocedural cardiovascular examination [facility] Start: 12-31-2023 Non-patient / Non-visit MD Jeremi Dan Work Phone: [facility] OutPt Work Phone: Start: 12-31-2023 MD Kait richmond Work Phone: [facility] Out[facility] Work Phone: Start: 12-30-2023 Non-patient / Non-visit MD Jeremi Dan Work Phone: [facility] Work Phone: Start: 12-30-2023 MD Kait richmond Work Phone: [facility] Work Phone: Start: 12-28-2023 Non-patient / Non-visit MD Jeremi Dan Work Phone: [facility] [place] Work Phone: Start: 12-28-2023 MD Kait richmond Work Phone: [facility] Physician [facility] [place] Work Phone: Start: 12-25-2023 Non-patient / Non-visit MD Jeremi Dan Work Phone: [facility] Physician [facility] [place] Work Phone: Start: 12-25-2023 MD Kait richmond Work Phone: [facility] [place] Work Phone: Start: 12-23-2023 Non-patient / Non-visit MD Jeremi Dan Work Phone: [facility] Work Phone: Start: 12-23-2023 MD Kait richmond Work Phone: [facility] Work Phone: Start: 12-22-2023 Non-patient / Non-visit MD Jeremi Dan Work Phone: [facility] Work Phone: Start: 12-22-2023 MD Kait richmond Work Phone: [facility] Work Phone: Start: 12-21-2023 Non-patient / Non-visit MD Jeremi Dan Work Phone: [facility] Work Phone: Start: 12-21-2023 MD Kait richmond Work Phone: [facility] Work Phone: Start: 12-21-2023 End: 12-21-2023 Office outpatient visit 25 minutes Mike Montes MD Work Phone: [facility] Vascular Surgery and Wound Care Comment on above: 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 (CMS-HCC) (Primary Dx) Start: 12-21-2023 End: 12-21-2023 [facility] Start: 12-15-2023 End: 12-15-2023 ambulatory DO Teresa Lynch Work Phone: [facility] Work Phone: Start: 12-15-2023 End: 12-15-2023 Departed Referred DO Teresa Lynch Work Phone: [facility] Start: 12-15-2023 End: 12-15-2023 MD Kait Dan Work Phone: [facility] Start: 12-10-2023 Non-patient / Non-visit MD Jeremi Dan Work Phone: [facility] OutPt Work Phone: Start: 12-10-2023 MD Kait richmond Work Phone: [facility] Out[facility] Work Phone: Start: 12-10-2023 Non-patient / Non-visit DO Phillip an Jetts Work Phone: [facility] Work Phone: Start: 12-10-2023 MD Kait richmond Work Phone: [facility] Work Phone: Start: 12-09-2023 Non-patient / Non-visit DO Phillip an Jetts Work Phone: [facility] Work Phone: Start: 12-09-2023 MD Kait richmond Work Phone: [facility] Work Phone: Start: 11-30-2023 End: 11-30-2023 Postop follow up visit related to original px Mike Montes MD Work Phone: [facility] Vascular Surgery and Wound Care Comment on above: 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 (CMS-HCC) (Primary Dx); Cigarette smoker motivated to quit Start: 11-30-2023 End: 11-30-2023 [facility] Comment on above: 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 (CMS-HCC) (Primary Dx); 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 (CMS-HCC); Delayed surgical wound healing of foot amputation stump (CMS-HCC); Other abnormalities of gait and mobility Start: 11-26-2023 Non-patient / Non-visit DO Phillip an Kuns Work Phone: [facility] Work Phone: Start: 11-24-2023 End: 11-24-2023 ambulatory Guero Tam DO Work Phone: [facility] - [facility] Comment on above: Status post partial amputation of right foot (CMS-HCC) (Primary Dx); Other abnormalities of gait and mobility; Leg edema; Primary hypertension; Hypotension due to drugs; 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); Diabetic polyneuropathy associated with type 2 diabetes mellitus ([facility]-HCC) Start: 11-23-2023 End: 11-23-2023 ambulatory [facility] Start: 11-15-2023 End: 11-15-2023 [facility] Start: 11-15-2023 Non-patient / Non-visit DO Phillip Lynch Work Phone: [facility] Work Phone: Start: 11-14-2023 End: 11-14-2023 Evaluation and management of inpatient [facility] Start: 11-10-2023 End: 11-10-2023 Telephone encounter Franny Yu MD Work Phone: [facility] Start: 11-07-2023 End: 11-14-2023 Evaluation and management of inpatient [facility] Start: 11-07-2023 End: 11-19-2023 ambulatory Guero Tam DO Work Phone: [facility] Comment on above: Peripheral arterial disease ([facility]-HCC) (Primary Dx); Delayed surgical wound healing of foot amputation stump ([facility]-HCC); Other abnormalities of gait and mobility; Status post partial amputation of right foot ([facility]-HCC); Pressure ulcer of right ankle, stage 3 ([facility]-HCC); Type 2 diabetes mellitus with stage 4 chronic kidney disease, without long-term current use of insulin ([facility]-HCC) Start: 11-07-2023 End: 11-14-2023 Evaluation and management of inpatient MIKE MONTES [facility] Start: 11-03-2023 End: 11-10-2023 ambulatory Guero Mckayleeasim Work Phone: [facility] Comment on above: Status post partial amputation of right foot (CMS-HCC) (Primary Dx); Pressure ulcer of right ankle, stage 3 (CMS-HCC); Other abnormalities of gait and mobility; Delayed surgical wound healing of foot amputation stump (CMS-HCC) Start: 10-25-2023 End: 10-30-2023 ambulatory Guero Tam DO Work Phone: [facility] Comment on above: Status post partial amputation of right foot (CMS-HCC) (Primary Dx); Osteomyelitis of right foot, unspecified type (CMS-HCC); Muscle weakness (generalized); Other abnormalities of gait and mobility; Chronic obstructive pulmonary disease, unspecified COPD type (CMS-HCC); Peripheral arterial disease (CMS-HCC) Start: 10-24-2023 Encounter for preprocedural cardiovascular examination [facility] Start: 10-24-2023 End: 10-24-2023 Office outpatient visit 25 minutes Raulito Inman MD Work Phone: [facility] Comment on above: History of PTCA; Hyperlipidemia, unspecified hyperlipidemia type; Encounter for pre-operative cardiovascular clearance; Former smoker Start: 10-24-2023 End: 10-24-2023 Patient encounter status Raulito Inman MD Work Phone: [facility] Work Phone: Start: 10-23-2023 End: 10-23-2023 ambulatory MD Mike Montes Facility:[facility] Start: 10-23-2023 End: 10-23-2023 Patient encounter procedure Mike Motnes [facility] Start: 10-19-2023 End: 10-19-2023 ambulatory MD Mike Montes Facility:[facility] Start: 10-19-2023 End: 10-19-2023 Patient encounter procedure Mike Montes [facility] Start: 10-18-2023 End: 10-18-2023 Telephone encounter Cameron [facility] Start: 10-18-2023 End: 10-18-2023 Office outpatient new 45 minutes Mike Montes MD Work Phone: [facility] Comment on above: 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 (CMS-HCC) (Primary Dx); Poor circulation; Heavy tobacco smoker >10 cigarettes per day Start: 10-18-2023 End: 10-18-2023 [facility] Start: 10-17-2023 End: 10-22-2023 ambulatory Guero Chacon Jesusitakayleeasim DO Work Phone: [facility] - [facility] Comment on above: Status post partial amputation of right foot (CMS-HCC) (Primary Dx); 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); Type 2 diabetes mellitus with stage 4 chronic kidney disease, without long-term current use of insulin (CMS-HCC) Start: 10-10-2023 End: 10-10-2023 ambulatory Guero Tam DO Work Phone: [facility] [...] (CMS-HCC) Start: 10-06-2023 End: 10-07-2023 ambulatory Guero Tam DO Work Phone: [facility] - [facility] Comment on above: Abscess of right jono t (Primary Dx); Status post partial amputation of right foot ([facility]); Type 2 diabetes mellitus with stage 4 chronic kidney disease, without long-term current use of insulin ([facility]); Atherosclerosis of [place] coronary artery of [place] heart without angina pectoris; Bacterial sepsis ([facility]); Other acute osteomyelitis of right foot ([facility]); Chronic obstructive pulmonary disease, unspecified COPD type ([facility]); Cigarette smoker; BPH with obstruction/lower urinary tract symptoms; Gastroesophageal reflux disease, unspecified whether esophagitis present; Restless leg syndrome; Hyperlipidemia, unspecified hyperlipidemia type; Carpal tunnel syndrome, unspecified laterality; Heart failure, unspecified HF chronicity, unspecified heart failure type ([facility]) Start: 10-06-2023 Non-patient / Non-visit DO Phillip an Kuns Work Phone: [facility] Work Phone: Start: 10-05-2023 End: 10-05-2023 ambulatory DO Teresa Fraustos Work Phone: [facility] Work Phone: Start: 10-05-2023 End: 10-05-2023 Departed Referred DO Teresa Fraustos Work Phone: [facility] Start: 10-05-2023 Non-patient / Non-visit DO Phillip an Kuns Work Phone: [facility] Work Phone: Start: 10-04-2023 Non-patient / Non-visit DO Phillip an Kuns Work Phone: [facility] Work Phone: Start: 10-03-2023 Non-patient / Non-visit DO Phillip an Kuns Work Phone: [facility] Work Phone: Start: 10-02-2023 End: 10-02-2023 ambulatory DO Teresa Fraustos Work Phone: [facility] Work Phone: Start: 10-02-2023 End: 10-02-2023 Departed Referred DO Teresagorge Fraustos Work Phone: [facility] Start: 10-02-2023 Non-patient / Non-visit DO Phillip an Kuns Work Phone: [facility] Physician [facility] [place] [facility] Work Phone: Start: 10-01-2023 Non-patient / Non-visit DO Phillip an Kuns Work Phone: [facility] Physician [facility] [place] [facility] Work Phone: Start: 09-30-2023 Non-patient / Non-visit DO Phillip an Kuns Work Phone: [facility] Work Phone: Start: 09-27-2023 Non-patient / Non-visit DO Phillip an Kuns Work Phone: [facility] Work Phone: Start: 09-21-2023 End: 09-21-2023 ambulatory DO Teresa Fraustos Work Phone: [facility] Work Phone: Start: 09-21-2023 End: 09-21-2023 Departed Referred DO Teresa Fraustos Work Phone: [facility] Start: 09-21-2023 Non-patient / Non-visit DO Phillip an Kuns Work Phone: [facility] Physician [facility] [place] [facility] Work Phone: Start: 09-18-2023 Non-patient / Non-visit DO Phillip an Kuns Work Phone: [facility] Work Phone: Start: 09-08-2023 End: 09-08-2023 [facility]ulatory [facility] Start: 09-08-2023 End: 09-08-2023 Patient encounter procedure [facility]o [facility]toria [facility] Start: 08-10-2023 Non-patient / Non-visit DO Phillip an Kuns Work Phone: [facility] Work Phone: Start: 08-08-2023 Non-patient / Non-visit DO Phillip an Kuns Work Phone: [facility] Work Phone: Start: 08-07-2023 Non-patient / Non-visit DO Phillip an Kuns Work Phone: [facility] Work Phone: Start: 08-06-2023 Non-patient / Non-visit DO Phillip an Kuns Work Phone: [facility] Work Phone: Start: 08-05-2023 Non-patient / Non-visit DO Phillip an Kuns Work Phone: [facility] Work Phone: Start: 08-04-2023 Non-patient / Non-visit DO Phillip an Kuns Work Phone: [facility] Work Phone: Start: 08-03-2023 Non-patient / Non-visit DO Phillip an Kuns Work Phone: [facility] Work Phone: Start: 07-31-2023 Registered Recurring DO Teresa Kuns Work Phone: [facility]-Infusion Therapy - O/P Work Phone: Start: 07-26-2023 Non-patient / Non-visit DO Phillip Lynch Work Phone: [facility] [employer] Work Phone: Start: 07-12-2023 End: 07-12-2023 Emergency department patient visit DO Teresa Lynch Work Phone: [facility]-Emergency Room Work Phone: Start: 07-07-2023 End: 07-07-2023 ambulatory Teresa Lynch Other [facility] [employer] Other Start: 07-07-2023 Telephone encounter Teresa Lynch [facility] [place] Start: 07-03-2023 End: 07-03-2023 ambulatory Yeyo ROWE Facility:[facility] Start: 06-26-2023 End: 06-26-2023 ambulatory Teresa Lynch Other [facility] [employer] Other Start: 06-26-2023 Telephone encounter Teresa Lynch [facility] [place] Start: 06-02-2023 End: 06-02-2023 ambulatory Yeyo ROWE Facility:[facility] Start: 06-02-2023 End: 06-02-2023 Patient encounter procedure [facility] Start: 05-16-2023 End: 05-16-2023 ambulatory Teresa Lynch Other [facility] [employer] Other Start: 05-16-2023 [facility] Start: 05-03-2023 End: 05-03-2023 ambulatory Yeyo ROWE Facility:[facility] [place] Start: 05-03-2023 End: 05-03-2023 Patient encounter procedure Yeyo ROWE [facility] Start: 04-28-2023 End: 04-28-2023 ambulatory Teresa Jettjoe Other [employer] Other Start: 04-28-2023 Telephone encounter Teresa Lynch [facility] Family Medicine [place] Start: 04-18-2023 End: 04-18-2023 ambulatory Yeyo ROWE Facility:[facility] [place] Start: 04-18-2023 End: 04-18-2023 Patient encounter procedure Yeyo Viktoria SOLEDAD [facility] [place] Start: 04-17-2023 ambulatory Yeyo Ruizi ty:[facility] [place] Start: 04-13-2023 End: 04-13-2023 ambulatory Yeyo Viktoria SOLEDAD Facility:[id number] Start: 04-11-2023 End: 04-11-2023 ambulatory Teresa Fraustojoe Other [employer] Other Start: 04-11-2023 Telephone encounter Teresa Lynch [facility] Family [facility] [place] Start: 04-06-2023 End: 04-06-2023 ambulatory Teresagorge Lynch Other [employer] Other Start: 04-06-2023 Encounter for other preprocedural examination Teresa Rory [facility] [place] Start: 04-06-2023 Office outpatient vi sit 25 minutes Teresagorge Lynch [facility] [place] Start: 03-28-2023 End: 03-28-2023 ambulatory Teresa Lynch Other [employer] Other Start: 03-28-2023 Telephone encounter Teresagorge Lynch [facility] [place] Start: 03-20-2023 ambulatory Yeyo Viktoria SOLEDAD Facili ty:[facility] [place] Start: 03-15-2023 End: 03-15-[address] [facility] [employer] Other Start: 03-15-2023 Office outpatient vi sit 25 minutes Teresa Lynch [facility] [place] Start: 03-10-2023 End: 03-10-2023 ambulatory Teresa Lynch Other [facility] [employer] Other Start: 03-10-2023 Telephone [facility] Teresa [facility] Start: 02-15-2023 Office outpatient vi sit 15 minutes Teresa Lynch Work Phone: [facility] 250 DO Work Phone: Start: 02-15-2023 ambulatory Dolores Pickard Facility:[id number] Start: 02-14-2023 End: 02-14-2023 Patient encounter procedure Yeyo ROWE [facility] Start: 02-08-2023 End: 02-08-2023 Patient encounter procedure Yeyo ROWE [facility] Start: 01-30-2023 End: 01-30-2023 Patient encounter procedure Yeyo ROWE [facility] Start: 01-25-[address] Teresa Lynch Facility:[id number] Start: 01-17-2023 End: 01-17-2023 ambulatory Teresa Lynch Other [facility] [employer] Other Start: 01-17-2023 Telephone encounter Teresa [facility] Start: 01-11-2023 Office outpatient vi sit 25 minutes Teresa Lynch Work Phone: [facility] 600 DO Work Phone: Start: 01-11-2023 ambulatory Doloresangie Pickard Facility:[id number] Start: 12-28-2022 End: 12-28-2022 Patient encounter procedure Yeyo ROWE [facility] [place] Start: 12-01-2022 End: 12-01-2022 ambulatory Teresa Lynch Other [employer] Other Start: 12-01-2022 Office outpatient vi sit 25 minutes Teresa Lynch [facility] Family [facility] [place] Start: 11-23-2022 End: 11-23-2022 Patient encounter procedure Yeyo ROWE [facility] Start: 10-07-2022 End: 10-07-2022 ambulatory Teresa Lynch Other [employer] Other Start: 10-07-2022 Telephone encounter Teresa Lynch [facility] [place] Start: 09-27-2022 End: 09-27-2022 ambulatory DO Teresa Lynch Work Phone: [facility] Work Phone: Start: 09-27-2022 End: 09-27-2022 Patient encounter procedure DO Teresa Lynch Work Phone: [facility] [place] Work Phone: Start: 09-21-2022 End: 09-21-2022 ambulatory Teresa Lynch Other [employer] Other Start: 09-21-2022 Telephone encounter Teresa Lynch [facility] [place] Start: 09-14-2022 End: 09-14-2022 ambulatory Teresa Lynch Other [employer] Other Start: 09-14-2022 Telephone encounter Teresa Lynch [facility] [place] Start: 09-02-2022 End: 09-02-2022 Patient encounter procedure DO Teresa Lynch Work Phone: [facility] [place] Work Phone: Start: 08-25-2022 End: 08-25-2022 ambulatory Doris Barnes Other [employer] Other Start: 08-25-2022 Telephone encounter Doris Barnes [employer] Start: 08-22-2022 End: 08-22-2022 ambulatory Teresa Lynch Other [employer] Other Start: 08-22-2022 Telephone encounter Teresa Lynch [facility] [place] Start: 08-05-2022 End: 08-05-2022 ambulatory Teresa Lynch Other [employer] Other Start: 08-05-2022 Telephone encounter Teresa Lynch [facility] [place] Start: 08-04-2022 End: 08-04-2022 ambulatory Teresa Lynch Other [employer] Other Start: 08-04-2022 Telephone encounter Teresa Lynch [facility] [place] Start: 07-28-2022 End: 07-28-2022 ambulatory Teresa Fraustojoe Other [employer] Other Start: 07-28-2022 Telephone encounter Teresa Jettjoe [employer] Start: 07-25-2022 End: 07-25-2022 ambulatory Teresa Lynch Other [employer] Other Start: 07-25-2022 Nursing evaluation o f patient and report Teresa Lynch [facility] [place] Start: 07-19-2022 End: 07-19-2022 ambulatory Teresa Lynch Other [employer] Other Start: 07-19-2022 Telephone encounter Teresa Lynch [facility] [place] Start: 07-15-2022 End: 07-15-2022 ambulatory Teresa Lynch Other [employer] Other Start: 07-15-2022 Telephone encounter Teresa Lynch [facility] [place] Start: 07-13-2022 End: 07-13-2022 ambulatory Teresa Lynch Other [employer] Other Start: 07-13-2022 Nursing evaluation o f patient and report Teresa Lynch [facility] Start: 07-12-[address] Raulito gutierrez [facility] Facility: Start: 07-05-2022 End: 07-05-2022 ambulatory Teresa Lynch Other [employer] Other Start: 07-05-2022 [address] [facility] Start: 07-05-2022 Rx Renewal Teresa Lynch Work Phone: [facility] 250 DO Work Phone: Start: 07-04-2022 End: 07-04-2022 ambulatory Teresa Lynch Other [employer] Other Start: 07-04-2022 Office outpatient vi sit 25 minutes Teresa Lynch [facility] Start: 06-30-2022 End: 06-30-2022 ambulatory Teresa Lynch Other [employer] Other Start: 06-30-[address] [facility] Start: 05-25-2022 End: 05-25-2022 ambulatory Teresa Lynch Other [employer] Other Start: 05-25-2022 Telephone encounter Teresa Lynch [facility] Start: 04-25-2022 End: 04-25-2022 ambulatory Teresa Lynch Other [employer] Other Start: 04-25-2022 Telephone encounter Teresagorge Lynch [facility] [place] Start: 04-19-2022 End: 04-19-2022 ambulatory Teresagorge Lynch Other [employer] Other Start: 04-19-2022 Telephone encounter Teresagorge Lynch [facility] [place] Start: 03-22-2022 End: 03-22-2022 ambulatory Teresagorge Lynch Other [employer] Other Start: 03-22-2022 Telephone encounter Teresagorge Lynch [facility] [place] Start: 03-01-2022 End: 03-01-2022 ambulatory Teresagorge Lynch Other [employer] Other Start: 03-01-2022 Telephone encounter Teresagorge Fraustojoe [facility] [place] Start: 02-18-2022 End: 02-18-2022 ambulatory Teresagorge Lynch Other [employer] Other Start: 02-18-2022 Telephone encounter Teresagorge Lynch [facility] [place] Start: 02-15-2022 End: 02-15-2022 ambulatory Verona Whaley Other [employer] Other Start: 02-15-2022 Office outpatient vi sit 25 minutes Teresa Lynch [facility] [place] Start: 02-15-2022 Telephone encounter Verona Whaley [facility] Start: 01-21-2022 End: 01-21-2022 ambulatory Teresa Lynch Other [employer] Other Start: 01-21-2022 Telephone encounter Teresa Lynch [facility] [place] Start: 01-19-2022 End: 01-19-2022 ambulatory Teresa Lynch Other [employer] Other Start: 01-19-2022 Telephone encounter Teresa Lynch [facility] [place] Start: 01-13-2022 End: 01-13-2022 ambulatory Teresa Lynch Other [employer] Other Start: 01-13-2022 Telephone encounter Teresa Lynch [facility] [place] Start: 12-23-2021 End: 12-23-2021 ambulatory Teresa Lynch Other [employer] Other Start: 12-23-2021 Telephone encounter Teresa Lynch [facility] [place] Start: 11-24-2021 End: 11-24-2021 ambulatory Teresagorge Lynch Other [employer] Other Start: 11-24-2021 Telephone encounter Teresa Lynch [facility] [place] Start: 11-03-2021 Rx Renewal Teresa Lynch Work Phone: [facility] 250 DO Work Phone: Start: 10-26-2021 Office outpatient vi sit 25 minutes Teresa Mari Jettjoe Work Phone: [facility] 250 DO Work Phone: Start: 10-25-2021 End: 10-25-2021 ambulatory Teresagorge Lynch Other [employer] Other Start: 10-25-2021 Telephone encounter Teresagorge Lynch [facility] [place] Start: 10-19-2021 End: 10-19-2021 ambulatory Aziz Bakhous Other [employer] Other Start: 10-19-2021 Office outpatient vi sit 25 minutes Aziz Bakhous [facility] Start: 10-18-2021 End: 10-18-2021 ambulatory Aziz Bakhous Other [employer] Other Start: 10-18-2021 Telephone encounter Amina Fagan [facility] Start: 10-12-2021 End: 10-13-2021 ambulatory DUARTE HENRY . Facility: Start: 10-08-2021 End: 10-08-2021 ambulatory Teresa Lynch Other [employer] Other Start: 10-08-2021 Telephone encounter Teresa Lynch [facility] [place] Start: 09-22-2021 End: 09-22-2021 ambulatory Teresa Lynch Other [employer] Other Start: 09-22-2021 Telephone encounter Teresa Lynch [facility] [place] Start: 09-21-2021 End: 09-21-2021 ambulatory Teresa Lynch Other [employer] Other Start: 09-21-2021 Telephone encounter Teresa Lynch [facility] [place] Start: 08-09-2021 End: 08-09-2021 ambulatory Teresa Lynch Other [employer] Other Start: 08-09-2021 Telephone encounter Teresa Fraustos [facility] [place] Start: 08-02-2021 End: 08-02-2021 ambulatory Teresa Lynch Other [employer] Other Start: 08-02-2021 Telephone encounter Teresa Fraustos [facility] [place] Start: 07-27-2021 End: 07-27-2021 ambulatory Teresa Fraustos Other [employer] Other Start: 07-27-2021 Office outpatient vi sit 25 minutes Teresa Fraustos [facility] [place] Start: 06-23-2021 End: 06-23-2021 ambulatory Teresa Fraustos Other [facility] Other Start: 06-23-2021 Telephone encounter Teresa Lynch [facility] Start: 06-22-2021 Rx Renewal Teresa Mari Rory Work Phone: [facility] 250 DO Work Phone: Start: 05-03-2021 End: 05-03-2021 ambulatory [address] Rory Other [facility] Other Start: 05-03-2021 Telephone encounter Teresa [facility] [place] Procedures Date Procedure Procedure Detail Performing Clinician Start: 10-10-2024 Plain chest X-ray Teresa Rory DO Work Phone: Start: 08-11-2024 CT angiography of head Teresa Lynch DO Work Phone: Start: 08-11-2024 CT angiography of neck vessels Teresa Jett joe DO Work Phone: Start: 08-11-2024 CT of head without contrast Teresa Lynch D O Work Phone: Start: 08-11-2024 Plain chest X-ray Teresagorge Fraustojoe DO Work Phone: Start: 04-23-2024 Esophagogastroduodenoscopy Kait hopkins MD Work [...] Dan Work Phone: Start: 03-04-2024 Antibody screen Teresa Lynch Comment on above: Order Comment: Number of units to transf use now? 1 Result Comment: PERF ORMED BY:[place] [id number] [place] [phone] MEDICAL DIRECTORCLIFFORD LOBATO M.D. Start: 03-04-2024 X-ray of right [...] Start: 11-15-2023 Blood Culture 2 DO Teresa Rory Work Phone: Start: 11-07-2023 Adult depression screening assessment Franny Yu MD Work Phone: Start: 10-24-2023 Ecg routine ecg w/least 12 lds w/i&r Raulito Inman MD Work Phone: Start: 10-06-2023 End: 02-28-2024 History of amputation of foot Status post partial amputation of right foot ([facility]) Guero Tam DO Work Phone: Start: 10-02-2023 Acid Fast [...] Unspecified specimen by Gram stain DO Teresa Fraustos Work Phone: Start: 08-04-2023 Blood Culture 1 DO Teresa Fraustos Work Phone: Start: 08-04-2023 Blood Culture 2 DO Teresa Lynch Work Phone: Start: 08-04-2023 Microscopic observation [Identifier] in Unspecified specimen by Gram stain DO Teresa Farustos Work Phone: Start: 08-04-2023 Wound Culture DO [...] percutaneous transluminal coronary angioplasty History of PTCA Raulito Inman MD Work Phone: Start: 02-14-2023 Transurethral cystoscopy Yeyo ROWE Start: 09-02-2022 MRI of head DO Teresa Lynch Work Phone: Start: 06-05-2006 Total colonoscopy Teresa Gurera Rory Work Phone: Angiography Mike Montes Comment on above: RLE Angiogram with drug coated balloonin g Appendectomy Teresa Lynch Work Phone: Appendectomy Yeyo ROWE Bilateral Carpal Tunnel Surgery Yeyo ROWE Bilateral Eye Surgery 1 Stephanier genaro ROWE Comment on above: bilateral cataracts with iol implants Bilateral Eye Surgery 2 Moha med Simon Comment on above: bilateral cataracts with iol implants Cardiac catheterization Jose Angel Lynch Work Phone: cardiac stents Yeyo Diaz Cataract extraction and insertion of intraocular lens Yeyo SOLEDAD Cataract surgery Teresa diaz Work Phone: Colonoscopy Yeyo ROWE Decompression of median nerve Teresa Lynch Work Phone: History of amputation of foot 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 ([facility]) Guero Chacon [employer] DO Work Phone: History of amputation of foot 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 ([facility]) Guero Chacon [employer] DO Work Phone: History of amputation of foot 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 ([facility]) Gureo Chacon [employer] DO Work Phone: History of amputation of foot 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 ([facility]) Guero Chacon [employer] DO Work Phone: History of amputation of foot 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 ([facility]) Guero Chacon [employer] DO Work Phone: History of amputation of foot 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 ([facility]) Guero Chacon [employer] DO Work Phone: History of amputation of foot 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 ([facility]) Guero Chacon [employer] DO Work Phone: History of percutane ous transluminal coronary angioplasty History of PTCA Teresa Lynch Work Phone: History of percutane ous transluminal coronary angioplasty History of PTCA Raulito Inman MD Work Phone: Procedure on back Teresa ramirez Work Phone: Comment on above: nerve ablation; Procedure on back Yeyo MIRTA DOSHI Scrotum and testicle operation Teresa Lynch Work Phone: Plan of Treatment Date Care Activity Detail Author Start: 08-05-2033 DTaP/Tdap/Td Vaccines (2 - Td or Tdap) DTaP/Tdap/Td Vaccines (2 - Td or Tdap) [facility] Start: 04-26-2025 Tobacco Counseling Tobacco Counseling [facility] Start: 03-15-2025 Adult BMI Screening Adult BMI Screening [facility] Start: 02-28-2025 Adult BMI Screening Adult BMI Screening [facility] Start: 02-28-2025 Tobacco Screening Tobacco Screening [facility] Start: 02-27-2025 Adult BMI Screening Adult BMI Screening [facility] Start: 01-17-2025 Adult BMI Screening Adult BMI Screening [facility] Start: 01-17-2025 Tobacco Screening Tobacco Screening [facility] Start: 12-20-2024 Adult BMI Screening Adult BMI Screening [facility] Start: 12-20-2024 Tobacco Screening Tobacco Screening [facility] Start: 11-29-2024 Adult BMI Screening Adult BMI Screening [facility] Start: 11-29-2024 Tobacco Screening Tobacco Screening [facility] Start: 11-13-2024 Adult BMI Screening Adult BMI Screening [facility] Start: 11-09-2024 Adult BMI Screening Adult BMI Screening [facility] Start: 11-09-2024 Tobacco Screening Tobacco Screening [facility] Start: 11-07-2024 Tobacco Screening Tobacco Screening [facility] Start: 11-06-2024 Depression Screening Depression Screening [facility] Start: 11-05-2024 Patient referral [facility] Work Phone: Start: 10-24-2024 Adult BMI Screening Adult BMI Screening [facility] Start: 10-21-2024 End: 10-21-2024 Patient encounter procedure 10/21/2024 8:00 AM EDT Office Visit [facility] [address] [facility] [address] [place] [address] Dolores Pickard, COUNTY SURVEYOR-HOOP DRIVING MACHINE OPERATOR HELPER [address] [facility] [address] [place] [address] [facility] Start: 10-17-2024 Adult BMI Screening Adult BMI Screening [facility] Start: 10-17-2024 Tobacco Screening Tobacco Screening [facility] Start: 10-13-2024 [facility] Start: 10-12-2024 [facility] Start: 10-11-2024 End: 10-11-2024 [facility] Start: 10-10-2024 End: 10-10-2024 [facility] Start: 10-10-2024 Hospital admission [facility] Start: 10-10-2024 Referral to field service specialist [facility] Start: 08-30-2024 Patient referral [facility] Work Phone: Start: 08-13-2024 [facility] Start: 08-12-2024 [facility] Start: 08-11-2024 End: 08-11-2024 [facility] Start: 08-11-2024 Physical therapy procedure [facility] Start: 08-11-2024 Referral to occupational therapist [facility] Start: 08-11-2024 Hospital admission [facility] Start: 08-11-2024 Referral to warp knitter helper [facility] Start: 08-11-2024 CT angiography of head [facility] Start: 08-11-2024 CT angiography of neck vessels [facility] Start: 08-11-2024 CT Head WO contrast [facility] Start: 08-11-2024 CT of head without contrast CT head stroke alert wo con [facility] Start: 08-11-2024 Plain chest X-ray XR chest 1V portable [facility] Start: 08-11-2024 XR Chest Single view [facility] Start: 08-11-2024 End: 08-11-2024 [facility] Start: 04-23-2024 [facility] Start: 03-13-2024 [facility] Start: 03-11-2024 End: 03-11-2024 Patient encounter procedure 03/11/2024 8:40 AM EDT Office Visit [facility] [address] [place] [address] Bernard De La Cruz MD [address] [place] [address] [facility] Start: 03-10-2024 Referral to fiscal manager [facility] Start: 03-09-2024 Comprehensive metabolic 2000 panel - Serum or Plasma [facility] Start: 03-09-2024 End: 03-09-2024 [facility] Start: 03-08-2024 Referral to psychiatrist [facility] Start: 03-08-2024 Referral to neurologist [facility] Start: 03-08-2024 End: 03-08-2024 [facility] Start: 03-08-2024 Hospital admission [facility] Start: 03-08-2024 Plain chest X-ray [facility] Start: 03-08-2024 Telemedicine consultation with patient [facility] Start: 03-08-2024 Blood culture for bacteria, including anaerobic screen [facility] Start: 03-06-2024 [facility] Start: 03-05-2024 Referral to fiscal manager [facility] Start: 03-04-2024 Referral to fiscal manager [facility] Start: 03-03-2024 Referral to neurologist [facility] Start: 03-03-2024 [facility] Start: 03-03-2024 Hospital admission [facility] Start: 02-29-2024 End: 02-29-2024 Patient encounter procedure 02/29/2024 9:30 AM EDT Office Visit [facility] [address] [place] [id number] Mike Montes MD [address], [address] [place] [address] [facility] Start: 02-04-2024 COVID-19 Vaccine ( season) COVID-19 Vaccine ( season) [facility] Start: 02-04-2024 Influenza vaccination [facility] Start: 12-21-2023 End: 12-21-2023 Patient encounter procedure 12/21/2023 8:40 AM EDT Office Visit [facility] [address] [place] [address] Mike Montes MD [address], [address] [address] [facility] Start: 11-30-2023 End: 11-30-2023 Patient encounter procedure 11/30/2023 8:50 AM EDT Office Visit [facility] [address] [place] [address] Mike Montes MD [address], [address] [address] [facility] Start: 11-23-2023 End: 11-23-2023 Patient encounter procedure [facility] Start: 11-23-2023 End: 11-23-2023 Patient encounter procedure 11/23/2023 9:40 AM EDT Office Visit [facility] [address] [place] [address] Mike Montes MD [address], [address] [address] [facility] Start: 11-15-2023 FUV, Provider: Raulito Inman, Status: Pen, Time: 2:40 PM FUV, Provider: Raulito Inman, Status: Pen, Time: 2:[address] [facility] 250 DO Work Phone: Start: 11-07-2023 End: 11-07-2023 Admission to same day surgery center 11/07/2023 3:00 PM EDT - 11/07/2023 4:00 PM EDT Surgery [facility] - Cardiac Cath [address] [place] [id number] Mike Montes MD [address], [address] [place] [address] Vascular Invasive Right lower extremity angiogram with intervention [facility] Comment on above: Vascular Invasive Right lower extremity angiogram with intervention Start: 11-07-2023 Subsequent hospital visit by physician 11/07/2023 3:00 PM EDT Hospital Encounter [facility] [address] [place] [id number] Mike Montes MD [address] [place] [address] 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) [facility] Comment on above: Critical limb ischemia of right lower ex tremity with gangrene ([facility]) Start: 10-18-2023 End: 10-17-2024 CTA Abdominal Aorta and Bilateral Runoff Vessels W contrast IV [facility] Comment on above: Expected: 10/18/2023, Expires: Start: 10-18-2023 End: 10-17-2024 US.doppler Extremity arteries - bilateral for physiologic artery study [facility] Work Phone: Comment on above: Expected: 10/18/2023, [...] Dolores Velazquez, Status: Pen, Time: 10:00 AM -[facility] 600 DO Work Phone: Start: 02-03-2023 COVID-19 Vaccine () COVID-19 Vaccine () [facility] Start: 01-25-2023 STRESS NUC, Provider: [facility] NUCLEAR 01,[id number], Status: Pen, Time: 8:30 AM STRESS NUC, Provider: [facility] NUCLEAR 01,[id number], Status: Pen, Time: 8:30 AM -[facility] 600 DO Work Phone: Start: 07-12-2022 FUV, Provider: Raulito Inman, Status: Pen, Time: 9:20 AM FUV, Provider: Raulito Inman, Status: Pen, Time: 9:20 AM -[facility] 250 DO Work Phone: Start: 10-26-2021 FUV, Provider: Raulito Inman, Status: Pen, Time: 9:30 AM FUV, Provider: Raulito Inman, Status: Pen, Time: 9:30 AM -[facility] 250 DO Work Phone: Start: 03-05-2019 Pneumococcal Vaccine: Pediatrics (0 to 5 Years) and At-Risk Patients (6 to 64 Years) (2 of 2 - PCV) Pneumococcal Vaccine: Pediatrics (0 to 5 Years) and At-Risk Patients (6 to 64 Years) (2 of 2 - PCV) [facility] Start: 2015 Administration of varicella zoster vaccine Zoster (Shingles) Vaccine (1 of 2) [employer] Start: 02-27-2016 Zoster Vaccines (1 of 2) Zoster Vaccines (1 of 2) [facility] Start: 1987 DTaP/Tdap/Td Vaccines (1 - Tdap) DTaP/Tdap/Td Vaccines (1 - Tdap) [facility] Start: 1984 DTaP,Tdap and Td Vaccines (1 - Tdap) DTaP,Tdap and Td Vaccines (1 - Tdap) [facility] Start: 1984 Hepatitis B Vaccines (1 of 3 - 19+ 3-dose series) Hepatitis B Vaccines (1 of 3 - 19+ 3-dose series) [facility] Start: 1984 Urine screening for protein Diabetes: Urine Protein Screening [facility] Start: 1983 Adult BMI Follow Up Plan Adult BMI Follow Up Plan [facility] Start: 1983 Adult BMI Screening Adult BMI Screening [facility] Start: 1983 Diabetic foot examination Diabetic Foot Exam [facility] Start: 1983 Hepatitis C screening Hepatitis C Screening [facility] Start: 1977 Depression Screening Depression Screening [facility] Start: 1977 Tobacco Screening Tobacco Screening [facility] Start: 1975 Diabetic foot examination Diabetes: Foot Exam [facility] Start: 1975 Glaucoma screening Diabetes: Retinopathy Screening [facility] Start: 1966 MMR Vaccines (1 of 1 - Standard series) MMR Vaccines (1 of 1 - Standard series) [facility] Start: 1965 Creatinine measurement Creatinine Level [facility] Start: 1965 Echocardiography Echocardiogram [facility] Start: 1965 Glaucoma screening Diabetic Ophthalmology Exam [facility] Start: 1965 Hemoglobin A1c measurement Diabetes: Hemoglobin A1C [facility] Start: 1965 HIV screening HIV Screening [facility] Start: 1965 Lipid panel Lipid Panel [facility] Start: 1965 Potassium measurement Potassium Level [facility] Start: 1965 Screening for malignant neoplasm of colon [facility] Start: 1965 Tobacco Counseling Tobacco Counseling [facility] Start: 1965 Yearly Adult Physical Yearly Adult Physical [facility] Bacteria identified in Blood by [facility] Comprehensive metabo lic 1999 panel - Serum or Plasma [facility] Comprehensive metabo lic 1999 panel - Serum or Plasma [facility] End: 10-17-2024 Creatinine includes GFR, serum Creatinine includes GFR, serum Lab Routine 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) 1 Occurrences starting 10/18/2023 until 10[facility]17[facility] Comment on above: 1 Occurrences starting 10/18/2023 until 10/17/2024 Microalbumin [Mass/v olume] in Urine [facility] Patient Education [facility] Work Phone: Patient referral [facility] Work Phone: Renal function 1999 panel - Serum or Plasma [facility] Renal function 1999 panel - Serum or Plasma [facility] End: 01-17-2024 [facility] Work Phone: Comment on above: Once for 1 Occurrences starting 01/17/20 24 until 01/17/2024 [facility] Immunizations Immunization Date Immunization Notes Care Provider Sachin pettit 11-13-2020 Pfizer-BioNTech COVID-19 Vacc 30 MCG/0.3ML Intramuscular Suspension Teresa Lynch Work Phone: [facility] 10-23-2020 Pfizer-BioNTech COVID-19 Vacc 30 MCG/0.3ML Intramuscular Suspension Teresa Lynch Work Phone: [facility] 01-14-2019 influenza, seasonal, injectable Teresa Lynch Other [facility] 01-14-2019 influenza virus vaccine, unspecified formulation Yeyo ROWE [facility] 04-02-2018 influenza virus vaccine, unspecified formulation Yeyo ROWE [facility] 04-02-2018 influenza, injectabl e, quadrivalent, preservative free DO Teresa Lynch Work Phone: [facility] 03-05-2018 influenza virus vaccine, unspecified formulation Teresa P Kuns Work Phone: [facility] 250 DO Work Phone: 03-05-2018 pneumococcal polysaccharide vaccine, 23 valent Teresa P Kuns Work Phone: [facility] 250 DO Work Phone: 03-07-2016 influenza virus vaccine, unspecified formulation Yeyo ROWE [facility] 03-07-2016 influenza, injectabl e, quadrivalent, preservative free Teresa P Rory Work Phone: [facility] 02-22-2016 pneumococcal polysaccharide vaccine, 23 valent Teresa P Kuns Work Phone: [facility] NEGATED: Highlighted row has not occurred!08-02-2024 influenza virus vaccine, unspecified formulation MARYBEL VANG [facility] Payers Date Payer Category Payer Self-pay [id number] 2023 Medicaid [id number] 2023 Private Health Insurance [id number] 2022 Private Health Insurance [id number] 2022 Private Health Insurance [id number] 2022 Medicaid [id number] 2022 Unknown 1965 Unknown [id number] 2.16.84 0.1.245522.3.579.2.593 1965 Unknown [id number] 2.16.8 40.1.717162.3.579.2.1068 1965 Unknown [id number] 2.16. 840.1.629675.3.579.2.356 1965 Unknown [id number] 2.16. 840.1.449647.3.579.2.356 1965 Unknown [id number] 2.16. 840.1.227124.3.579.2.356 1965 Unknown [id number] 2.16.8 40.1.567787.3.579.2.1286 1965 Unknown [id number] 2.16.8 40.1.084069.3.579.2.1286 1965 Unknown [id number] 2.16.8 40.1.409552.3.579.2.1286 1965 Unknown [id number] 2.16.8 40.1.831997.3.579.2.1286 1965 Unknown [id number] 2.16.8 40.1.015303.3.579.2.1286 1965 Unknown [id number] 2.16.8 40.1.734851.3.579.2.1286 1965 Unknown [id number] 2.16.8 40.1.603412.3.579.2.1286 1965 Unknown [id number] 2.16.8 40.1.746254.3.579.2.1286 1965 Unknown [id number] 2.16.8 40.1.348889.3.579.2.1246 1965 Unknown [id number] 2.16.8 40.1.749654.3.579.2.727 1965 Unknown [id number] 2.16.8 40.1.595884.3.579.2. 1965 Unknown [id number] 2.16.8 40.1.003345.3.579.2 1965 Unknown [id number] 2.16.8 40.1.322928.3.579.2 1965 Unknown [id number] 2.16.8 40.1.871414.3.579.2 1965 Unknown [id number] 2.16.8 40.1.984399.3.579.2 1965 Unknown [id number] 2.16.8 40.1.207139.3.579.2 1965 Unknown [id number] 2.16.8 40.1.678685.3.579.2 1965 Unknown [id number] 2.16.8 40.1.327902.3.579.2 1965 Unknown [id number] 2.16.8 40.1.759495.3.579.2 1965 Unknown [id number] 2.16.8 40.1.907852.3.579.2 1965 Unknown [id number] 2.16.8 40.1.124595.3.579.2 1965 Unknown [id number] 2.16.8 40.1.907070.3.579.2 1965 Unknown [id number] 2.16.8 40.1.406959.3.579.2 1965 Unknown [id number] 2.16.8 40.1.274887.3.579.2 1965 Unknown [id number] 2.16.8 40.1.413739.3.579.2 1965 Unknown [id number] 2.16.8 40.1.208675.3.579.2 1965 Unknown [id number] 2.16.8 40.1.187002.3.579.2.727 1965 Unknown [id number] 2.16.8 40.1.479552.3.579.2. 1965 Unknown [id number] 2.16.8 40.1.560682.3.579.2. 1965 Unknown [id number] 2.16.8 40.1.086670.3.579.2. 1965 Unknown [id number] 2.16.8 40.1.054812.3.579.2. 1965 Unknown [id number] 2.16.8 40.1.826322.3.579.2. 1965 Unknown [id number] 2.16.8 40.1.424870.3.579.2. 1965 Unknown [id number] 2.16.8 40.1.610634.3.579.2. 1965 Unknown [id number] 2.16.8 40.1.475273.3.579.2. 1965 Unknown [id number] 2.16.8 40.1.443859.3.579.2. 1965 Unknown [id number] 2.16.8 40.1.734577.3.579.2.1285 1965 Unknown [id number] 2.16.8 40.1.989387.3.579.2.1285 1965 Unknown [id number] 2.16.8 40.1.720274.3.579.2.1285 1965 Unknown [id number] 2.16.8 40.1.593770.3.579.2.1285 1965 Unknown [id number] 2.16.8 40.1.590557.3.579.2.1285 1965 Unknown [id number] 2.16.8 40.1.009121.3.579.2.1285 1965 Unknown [id number] 2.16.8 40.1.308343.3.579.2.727 1965 Unknown [id number] 2.16.8 40.1.562162.3.579.2.727 1965 Unknown [id number] 2.16.8 40.1.845846.3.579.2.727 1965 Unknown [id number] 2.16.8 40.1.813501.3.579.2.727 1965 Unknown [id number] 2.16.8 40.1.437409.3.579.2.727 1965 Unknown [id number] 2.16.8 40.1.148136.3.579.2.727 1965 Unknown [id number] 2.16.8 40.1.759466.3.579.2.727 1965 Unknown [id number] 2.16.8 40.1.244523.3.579.2.1244 1959 Unknown [id number] 2.1 6.840.1.046314.19 Unknown [id number] 2.16.8 40.1.471707.3.579.2.531 Unknown [id number] 2.16.8 40.1.790350.3.579.2.531 Unknown [id number] 2.16.8 40.1.283751.3.579.2.531 Unknown [id number] 2.16.8 40.1.301165.3.579.2.531 Unknown [id number] 2.16.8 40.1.514737.3.579.2.531 Unknown [id number] 2.16.8 40.1.357623.3.579.2.531 Unknown [id number] 2.16.8 40.1.298486.3.579.2.531 Unknown [id number] 2.16.8 40.1.023356.3.579.2.531 Social History Date Type Detail Facility Start: 08-08-2023 End: 01-18-2024 Caffeine use Caffeine use [facility] [employer] Other Comment on above: 2 cups coffee, 4-6 c ups tea daily, occaional soda; qauit 07/2020; Start: 08-08-2023 End: 01-18-2024 Sex Assigned At [facility] Start: 07-14-2020 End: 10-10-2024 Tobacco smoking status NHIS Smoker (finding) [facility] Start: 1965 Sex Assigned At Male [facility] Start: 11-23-2022 End: 08-02-2024 Tobacco smoking status Heavy tobacco smoker (finding) [facility] Tobacco smoking status Never [facility] Start: 10-24-2023 Tobacco smoking stat us NHIS Ex-smoker [facility] Start: 10-05-1981 End: 06-05-2020 History of tobacco use Cigarette Smoker [facility] Start: 10-24-2023 End: 11-07-2023 Tobacco use and exposure Smokeless tobacco non-user [facility] Work Phone: Start: 10-24-2023 End: 01-01-2024 Alcoholic beverage intake Lifetime non-drinker (finding) [facility] Work Phone: Start: 1965 Sex assigned at Not on file [employer] [facility] Start: 10-14-2023 End: 01-17-2024 Exposure to SARS-CoV-2 (event) Not sure [facility] Start: 03-10-2024 Tobacco smoking stat us VTIS Unknown if ever smoked [facility] Start: 04-23-2024 End: 11-05-2024 Sex Male (finding) [facility] Start: 10-05-1981 End: 11-07-2023 Tobacco smoking status NHIS Smokes tobacco daily [facility] [employer] Start: 11-10-2023 End: 01-18-2024 Alcoholic beverage intake [facility] (finding[facility] [employer] Has the electric, ga s, oil, or i.[employer] electronics threatened to shut off services in your home in past 12Mo No [facility] How often to you hav e a drink containing alcohol? 2-4 times a month [facility] How many standard drinks containing alcohol do you have on a typical day? 1 or 2 [facility] How often do you hav e 6 or more drinks on 1 occasion? Never [facility] Start: 08-12-2024 SDOH Follow up SDOH Follow up [facility] Work Phone: Medical Equipment Procedure Code Equipment Code Equipment [...] bilateral lower extremity runoff FDA Start: 09-27-2018 Start: 12-16-2013 [id number] FDA Start: 07-14-2020 Insulin Syringe,Safety Needle 1 mL 30 gauge x 1/2 syringe Start: 03-29-2024 Pen Needle, Diabetic (Comfort Ez Pen Chadron) 32 gauge x 5/32 needle Start: 04-15-2024 Insulin Syringe,Safety Needle 1 mL 30 gauge x 1/2 syringe Start: 03-29-2024 Pen Needle, Diabetic (Comfort Ez Pen Chadron) 32 gauge x 5/32 needle Start: 04-15-2024 LLE Angiogram Unknown 01/08/24 Non Biological Left Femoral Artery/Vein FDA Start: 01-08-2024 LLE Angiogram Unknown 01/08/24 Non Biological Left Femoral Artery/Vein FDA Start: 01-08-2024 LLE Angiogram Unknown 01/08/24 Non Biological Left Femoral Artery/Vein FDA Start: 01-08-2024 Graft Vsc 50cm 6 mm Medina Thnwl Hep Propaten Ptfe Rem Rng - [id number] Start: 11-08-2023 Comment on above: Description: RIGHT F EMORAL ARTERY Stent Vsc Epic 10mm 100mm 120cm 6fr Rdpq Otw Slf Xpd Gw - [id number] FDA Start: 11-07-2023 LLE Angiogram Unknown 01/08/24 Non Biological Left Femoral Artery/Vein FDA Start: 01-08-2024 Insulin Syringe,Safety Needle 1 mL 30 gauge x 1/2 syringe Start: 03-29-2024 Pen Needle, Diabetic (Comfort Ez Pen Chadron) 32 gauge x 5/32 needle Start: 04-15-2024 Insulin Syringe,Safety Needle 1 mL 30 gauge x 1/2 syringe Start: 03-29-2024 Pen Needle, Diabetic (Comfort Ez Pen Chadron) 32 gauge x 5/32 needle Start: 04-15-2024 Insulin Syringe,Safety Needle 1 mL 30 gauge x 1/2 syringe Start: 03-29-2024 Pen Needle, Diabetic (Comfort Ez Pen Chadron) 32 gauge x 5/32 needle Start: 04-15-2024 Insulin Syringe,Safety Needle 1 mL 30 gauge x 1/2 syringe Start: 03-29-2024 Pen Needle, Diabetic (Comfort Ez Pen Chadron) 32 gauge x 5/32 needle Start: 04-15-2024 Insulin Syringe,Safety Needle 1 mL 30 gauge x 1/2 syringe Start: 03-29-2024 Pen Needle, Diabetic (Comfort Ez Pen Chadron) 32 gauge x 5/32 needle Start: 04-15-2024 Insulin Syringe,Safety Needle 1 mL 30 gauge x 1/2 syringe Start: 03-29-2024 Pen Needle, Diabetic (Comfort Ez Pen Chadron) 32 gauge x 5/32 needle Start: 04-15-2024 Insulin Syringe,Safety Needle 1 mL 30 gauge x 1/2 syringe Start: 03-29-2024 Pen Needle, Diabetic (Comfort Ez Pen Chadron) 32 gauge x 5/32 needle Start: 04-15-2024 Goals Date Patient Goal Desired Activity /State Personal health goal Comment on above: Formatting of this n ote might be different from the original. Evaluation of progress towards goal: Patient is planning to transition back to SNF at discharge. Functional Status Date Assessment Result Facility 10-11-2024 Functional status Patient at [facility] Work Phone: 10-10-2024 Functional status Patient at [facility] Work Phone: 08-13-2024 Functional status Patient at [facility] Work Phone: 08-02-2024 Functional Status N/A [facility] 05-27-2024 Functional Status N/A [facility] 03-13-2024 Functional status Patient at [facility] Work Phone: 03-06-2024 Functional status Patient at [facility] Work Phone: 02-12-2024 Functional Status No [facility] 10-23-2023 Functional Status No [facility] 06-02-2023 Functional Status N/A [facility] 02-14-2023 Functional Status N/A [facility] 01-30-2023 Functional Status N/A [facility] 11-23-2022 Functional Status N/A [facility] Mental Status Date Assessment Result Facility 10-11-2024 Cognitive function Patient at [facility] Work Phone: 10-10-2024 Cognitive function Cognitive Sta tus Patient at [facility] Work Phone: 08-13-2024 Cognitive function Patient at [facility] Work Phone: 03-13-2024 Cognitive function Patient at [facility] Work Phone: 03-06-2024 Cognitive function Patient at [facility] Work Phone: Clinical Notes 06-23-2021 to 11-05-2024 Note Date & Type Note Facility 11-05-2024 Hospital Discharg e instructions Ambulatory OrdersReferral to Diabetes Management Time Frame: 11/05/24, Location: None Selected [facility] Work Phone: 10-10-2024 Consult note Note Date/Time October 11, 2024 9:56am [facility] [address] [place], [place] [id number] Cardiology Consult Note Signed Patient: Myra Pickard SR MR#: [id number] : 1965 Acct:[id number] Age/Sex: 59 / M Adm Date: 5 Loc: 4 Room: [address] [place] [address] Type: ADM INOo Attending Dr: Abdullahi Canchola DO Copies to: DO Pascale Guzman MD, [facility] Abdullahi Canchola, ~ Cardiology HPI History of Present Illness Consult Date: 10/11/24 Reason for Consult: Chest pain HPI: Mr. Pickard is a 59 year old male who is being seen at request of the hospitalist for evaluation of chest pain. Patient has history of CAD and previous PCI of the RCA. Left heart catheterization 2017 revealed patent stent. He had nuclearstress test in 2022 which was normal. Repeat stress test I believe February 2024 prior to right below-knee amputation was normal. He presented with recurrent symptoms of what he describes as sharp pain in the front of the chest at rest stabbing in nature with no radiation and no associated symptoms of palpitations, diaphoresis, dizziness syncope or near syncope. The pain does notrespond to nitroglycerin. He has previously followed with Dr. Inman. The patient and his both are actively smoking. He has severe PAD status post right below-knee amputation February 2024 in [place]. He has COPD followed by pulmonary medicine in [place]. His EKG showed no acute changes his enzymes were normal and his BNP was normal. He has no family history of abnormal ejection fraction. He does have stage IV chronic kidney disease along with hyperlipidemia, he is nondiabetic with no previous cardiac arrhythmias and no history of cerebrovascular disease. At the present time the patient resting comfortably without any complaints and based on the data available he can be discharged home today. I suggested for the sake of completeness consideration for outpatient stress test but I prefer that he gets seen first by his primary field service specialist in the office, I emphasized to the patient and his the need for tobacco cessation for good Review of Systems Review of Systems Review of systems: Patient has intermittent symptoms of atypical chest pain requiring ER visits. He has no syncope no resting pain in the left leg. No palpitations, no nausea or vomiting, no abdominal pain no diarrhea and denies any urinary symptoms. Other review of system was unremarkable 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 Restless legs syndrome Peripheral vascular disease Peripheral edema Lung nodule Insulin long-term use Insomnia Hypotestosteronemia Hypertensive chronic kidney disease with stage 1 through stage 4 chronic kidney disease, or unspecified chronic kidney disease Gout GERD (gastroesophageal reflux disease) Erectile dysfunction Contracture of hand Claudication of both lower extremities Cigarette nicotine dependence with nicotine-induced disorder Bladder mass Atrial fibrillation Atherosclerotic heart disease of [place] coronary artery with unspecified angina pectoris Anxiety Hx of exercise stress test Family history of premature CAD Reports mother had quadruple bypass at age of 45 Myocardial infarction mild Fibromyalgia Chronic back pain Sleep apnea Neuropathy Cataract Peripheral artery disease Hyperlipidemia Diabetes Hypertension Surgical History History of below-knee amputation of right lower extremity 02/20[facility] by Dr. Simon Hernández Vascular History of artificial lens replacement Hx of [...] Tobacco Type: cigarettes Substance Use Type: None Substance Abuse Comment: etoh occasionally Social History Comments: mobile home Meds Medications and Allergies Allergies Penicillins Allergy (Unknown, Verified 10/10/24 14:40) Anaphylaxis latex Allergy (Verified 10/10/24 14:40) Unknown Reaction Home Medications albuterol sulfate 90 mcg/actuation aerosol inhaler (ProAir HFA) 2 puff inhalation Q6HR PRN Shortness Of Breath 06/28/19 [History Confirmed 10/10/24] nitroglycerin 0.4 mg sublingual tablet (Nitrostat) 0.4 mg sublingual Q5-15M PRN chest pain 07/12/23 [History Confirmed 10/10/24] flash glucose scanning reader (UlmonStyle Jigar 2 Ensign) #1 ea 12/28/23 [Rx Confirmed 10/10/24] flash glucose sensor (FreeStyle Jigar 2 Sensor kit) #1 ea 12/28/23 [Rx Confirmed 10/10/24] tiotropium bromide 18 mcg capsule with inhalation device (Spiriva with HandiHaler) 1 cap inhalation DAILY 03/03/24 [History Confirmed 10/10/24] tamsulosin 0.4 mg capsule (Flomax) 0.4 mg PO BID 03/08/24 [History Confirmed 10/10/24] insulin syringe,safety needle 1 mL 30 gauge x 1/2 #100 ea 03/29/24 [Rx Confirmed 10/10/24] aspirin 81 mg tablet,delayed release 81 mg PO DAILY 04/05/24 [History Confirmed 10/10/24] budesonide-formoterol HFA 160 mcg-4.5 mcg/actuation aerosol inhaler 2 puff inhalation BID 04/05/24 [History Confirmed 10/10/24] sildenafil 100 mg tablet 100 mg PO DAILY PRN sexual activity #30 tabs 04/05/24 [Rx Confirmed 10/10/24] pen needle, diabetic 32 gauge x 5/32 (Comfort EZ Pen Chadron) #100 ea 04/15/24 [Rx Confirmed 10/10/24] hydroxyzine HCl 25 mg tablet 25 mg PO QHS #90 tabs 05/06/24 [Rx Confirmed 10/10/24] dulaglutide 0.75 mg/0.5 mL subcutaneous pen injector (Trulicity) 0.75 mg (0.5 mL) subcut QWEEK #2 mL 06/25/24 [Rx Confirmed 10/10/24] empagliflozin 10 mg tablet (Jardiance) 10 mg PO DAILY #90 tabs 06/25/24 [Rx Confirmed 10/10/24] sitagliptin phosphate 100 mg tablet (Januvia) 100 mg PO DAILY #90 tabs 06/25/24 [Rx Confirmed 10/10/24] atorvastatin 80 mg tablet 80 mg PO DAILY #90 tabs 06/27/24 [Rx Confirmed 10/10/24] glimepiride 2 mg tablet 2 mg PO BID #180 tabs 06/27/24 [Rx Confirmed 10/10/24] furosemide 40 mg tablet (Lasix) 40 mg PO DAILY 08/11/24 [History Confirmed 10/10/24] isosorbide mononitrate 30 mg tablet,extended release 24 hr 30 mg PO DAILY 08/11/24 [History Confirmed 08/30/24] metoprolol tartrate 25 mg tablet 50 mg PO BID 08/11/24 [History Confirmed 10/10/24] ropinirole 0.5 mg tablet 0.5 mg PO TID 08/11/24 [History Confirmed 10/11/24] tizanidine 4 mg tablet 4 mg PO QHS 08/11/24 [History Confirmed 10/10/24] valsartan 160 mg-hydrochlorothiazide 12.5 mg tablet (Diovan HCT) 1 tab PO DAILY 08/11/24 [History Confirmed 10/10/24] amitriptyline 25 mg tablet 25 mg PO DAILY #90 tabs 08/30/24 [Rx Confirmed 10/10/24] magnesium oxide 400 mg PO DAILY #90 tabs 09/05/24 [Rx Confirmed 10/10/24] clonazepam 0.5 mg tablet (Klonopin) 0.5 mg PO .every morning 30 days #30 tabs 09/11/24 [Rx Confirmed 10/10/24] clopidogrel 75 mg tablet 75 mg PO DAILY #90 tabs 09/12/24 [Rx Confirmed 10/10/24] metformin 1,000 mg tablet 1,000 mg PO BID #180 tabs 09/12/24 [Rx Confirmed 10/10/24] omeprazole 40 mg capsule,delayed release 40 mg PO DAILY 10/10/24 [History Confirmed 10/10/24] pregabalin 75 mg capsule (Lyrica) 225 mg PO TID 10/10/24 [History Confirmed 10/10/24] Exam Physical Exam Vital Signs: Temp Pulse Resp BP Pulse Ox O2 Del Method 97.7 F 66 20 114/67 97 Room Air 10/10/24 20:48 10/11/24 08:51 10/11/24 08:51 10/11/24 04:00 10/10/24 20:48 10/11/24 00:00 Const General: cooperative, comfortable and no acute distress Nutritional Appearance: overweight Orientation: alert, awake and oriented x3 HEENT Head: normal to inspection, normocephalic and atraumatic Ears: hearing grossly normal bilaterally Nose: external nose normal Face and sinus: normal facial exam Eyes Conjunctivae: conjunctivae normal Pupils: PERRL Neck Neck: trachea midline and supple Neck mass: No Thyroid: thyroid normal Carotids: normal carotid upstroke Resp Effort & Inspection: normal respiratory effort Auscultation: crackles, diminished lung sounds, rhonchi and wheezes Cardio Jugular venous pressure: no JVD Palpation: normal PMI Rate: regular rate Rhythm: regular rhythm Heart Sounds: S1 normal and S2 normal GI Inspection: normal to inspection Palpation: soft and no hepatosplenomegaly Auscultation: normal bowel sounds Extrem General: other (Right below-knee amputation) Results - Cardiology Labs 10/11/24 04:45 10/11/24 04:45 Lab results: Cardiac Enzymes 10/10/24 10/10/24 10/11/24 Range/Units 15:42 23:32 04:45 Total Creatine Kinase 126 101 91 (30-223) U/L B-Natriuretic Peptide 17.0 (5-100) pg/mL CBC 10/10/24 10/11/24 Range/Units 15:42 04:45 RBC 5.62 H 5.09 (3.90-5.60) x10E6/uL Hgb 14.4 13.1 (13.0-17.0) g/dL Hct 42.4 38.9 (38.8-50.0) % Plt Count 203 176 (150-450) x10E3/uL Neut # (Auto) 5.3 4.6 (1.8-7.7) x10E3/uL Lymph # (Auto) 2.0 2.0 (1.00-4.8) x10E3/uL O'Brien # (Auto) 0.8 0.9 H (0.0-0.8) x10E3/uL Eos # (Auto) 0.3 0.3 (0.0-0.45) x10E3/uL Baso # (Auto) 0.1 0.1 (0.0-0.2) x10E3/uL Comprehensive Metabolic Panel 10/10/24 10/11/24 Range/Units 15:42 04:45 Sodium 135 L 136 (136-145) mmol/L Potassium 4.1 4.2 (3.5-5.1) mmol/L Chloride 98 99 (98-107) mmol/L Carbon Dioxide 25.6 25.5 (21.0-31.0) mmol/L BUN 41 H 39 H (7-25) mg/dL Creatinine 2.51 H 2.43 H (0.70-1.30) mg/dL Glucose 278 H 221 H (70-100) mg/dL Calcium 9.7 8.9 (8.6-10.3) mg/dL Intake and Output 10/10/24 10/11/24 10/11/24 23:59 07:59 15:59 Intake Total 650 / 650 Output Total 650 / 650 675 / 675 Balance -650 / -650 - Intake: Oral 650 / 650 Output: Urine 650 / 650 675 / 675 Other: # Bowel Movements 0 Weight 92.6 kg 92.6 kg Date of Last Bowel Movement 10/10/24 10/10/24 Patient Weight 10/11/24 23:59 Weight 92.6 kg Lab 10/10/24 15:42 PT 11.4 INR 1.0 EKG Interpretations EKG Attestation EKG: I reviewed this ECG and interpreted as documented below: (Normal sinus rhythm with first-degree AV block) A&P - Cardiology (1) Chest pain: Assessment/Problem Details: Atypical in nature with normal EKG and normal cardiac enzymes, unlikely to be cardiac and most likely musculoskeletal Plan: Follow-up with cardiology with consideration for stress test, tobacco cessation,discharged home today Code(s): R07.9 - Chest pain, unspecified (2) Chronic obstructive pulmonary disease, unspecified: Assessment/Problem Details: Presently active while continuously smoking Plan: Tobacco cessation, continue present therapy for COPD and follow-up with pulmonary medicine Qualifiers: COPD type: unspecified COPD Qualified Code(s): J44.9 - Chronic obstructive pulmonary disease, unspecified Code(s): J44.9 - Chronic obstructive pulmonary disease, unspecified (3) History of below-knee amputation of right lower extremity: Plan: Tobacco cessation, antiplatelet therapy, statin therapy Code(s): Z89.511 - Acquired absence of right leg below knee (4) Hyperlipidemia: Plan: Continue high intensity statin Qualifiers: Hyperlipidemia type: unspecified Qualified Code(s): E78.5 - Hyperlipidemia, unspecified Code(s): E78.5 - Hyperlipidemia, unspecified (5) Chronic kidney disease: Assessment/Problem Details: Stage IV Plan: avoid nephrotoxic medications Code(s): N18.9 - Chronic kidney disease, unspecified (6) CAD (coronary artery disease): Assessment/Problem Details: Status post PCI of the RCA, nuclear stress test February 2024 in [place] was normal Plan: Continue aggressive risk factors modifications, tobacco cessation, dual antiplatelet therapy, high intensity statin Code(s): I25.10 - Atherosclerotic heart disease of [place] coronary artery without angina pectoris Documented By: Pascale Arnold MD, [facility] 5 [id number] Signed By: <Electronically signed by [facility] Pascale Arnold> 10/11/24 0956 [facility] Work Phone: [phone] 211-994404-25-2025 NotePatient Education Urology Acute Urinary Retention, Male Acute urinary retention is a condition in which a person is unable to pass urine or can only pass alittle urine. This condition can happen suddenly and last for a short time. If left untreated, it can become long-term (chronic) and result in kidney damage or other serious complications. What are the causes? This condition may be caused by: ??? Obstruction or narrowing of the tube that drains the bladder (urethra). This may be caused by surgery, problems with nearby organs, or injury to the bladder or urethra. ??? Problems with the nerves in the bladder. ??? Tumors in the area of the pelvis, bladder, or urethra. ??? Certain medicines. ??? Bladder or urinary tract infection. ??? Constipation. What increases the risk? This condition is more likely to develop in older men. As men age, their prostate may become largerand may start to press or squeeze on the bladder or the urethra. Other chronic health conditions can increase the risk of acute urinary retention. These include: ??? Diseases such as multiple sclerosis. ??? Spinal cord injuries. ??? Diabetes. ??? Degenerative cognitive conditions, such as delirium or dementia. ??? Psychological conditions. A man may hold his urine due to trauma or because he does not want touse the bathroom. What are the signs or symptoms? Symptoms of this condition include: ??? Trouble urinating. ??? Pain in the lower abdomen. How is this diagnosed? This condition is diagnosed based on a physical exam and your medical history. You may also have other tests, including: ??? An ultrasound of the bladder or kidneys or both. ??? Blood tests. ??? A urine analysis. ??? Additional tests may be needed, such as a CT scan, MRI, and kidney or bladder function tests. How is this treated? Treatment for this condition may include: ??? Medicines. ??? Placing a thin, sterile tube (catheter) into the bladder to drain urine out of the body. This is called an indwelling urinary catheter. After it is inserted, the catheter is held in place with a small balloon that is filled with sterile water. Urine drains from the catheter into a collection bag outside of the body. ??? Behavioral therapy. ??? Treatment for other conditions. If needed, you may be treated in the hospital for kidney function problems or to manage other complications. Follow these instructions at home: Medicines ??? Take xgip-rth-kbstcma and prescription medicines only as told by your health care provider. Avoid certain medicines, such as decongestants, antihistamines, and some prescription medicines. Do nottake any medicine unless your health care provider approves. ??? If you were prescribed an antibiotic medicine, take it as told by your health care provider. Donot stop using the antibiotic even if you start to feel better. General instructions ??? Do not use any products that contain nicotine or tobacco. These products include cigarettes, chewing tobacco, and vaping devices, such as e-cigarettes. If you need help quitting, ask your health care provider. ??? Drink enough fluid to keep your urine pale yellow. ??? If you have an indwelling urinary catheter, follow the instructions from your health care provider. ??? Monitor any changes in your symptoms. Tell your health care provider about any changes. ??? If instructed, monitor your blood pressure at home. Report changes as told by your health care provider. ??? Keep all follow-up visits. This is important. Contact a health care provider if: ??? You have uncomfortable bladder contractions that you cannot control (spasms). ??? You leak urine with the spasms. Get help right away if: ??? You have chills or a fever. ??? You have blood in your urine. ??? You have a catheter and the following happens: ? Your catheter stops draining urine. ? Your catheter falls out. Summary ??? Acute urinary retention is a condition in which a person is unable to pass urine or can only pass a little urine. If left untreated, this condition can result in kidney damage or other serious complications. ??? An enlarged prostate may cause this condition. As men age, their prostate gland may become larger and may press or squeeze on the bladder or the urethra. ??? Treatment for this condition may include medicines and placement of an indwelling urinary catheter. ??? Monitor any changes in your symptoms. Tell your health care provider about any changes. This information is not intended to replace advice given to you by your health care provider. Make sure you discuss any questions you have with your health care provider. Document Revised: 02/10/2021 Document Reviewed: 02/10/2021 [email or web address] Patient Education ? 2023 [email or web address] 08-30-2024 Hospital Discharge instructionsAmbulatory Orders* Referral to Pain Management Time Frame: 08/30/24, Location: None [facility] Work Phone: 1(216) 789-369003-11-2025 [place] [address] Discharge Summary Signed Patient: Myra Pickard SR MR#: [id number] : 1965 Acct:[id number] Age/Sex: 59 / M Adm Date: 5 Loc: Room: 1J5282-[address]: Kevon Viera MD Copies to: Teresa Lynch,DO Kevon Viera MD~ Providers Date of Discharge: 08/13/24 Discharging Provider: Kevon Viera Primary Care Provider: Teresa Lynch Consults: 08/11/24 05:40 Consult to Nephrology Routine Comment: Consulting Provider: Amina Fagan Has Provider Been Notified: Yes Date of Notification: 08/11/24 Time of Notification: 07:18 Reason for Consult: Renal Failure 08/11/24 05:41 Consult to Occupational Therapy Routine Comment: Physician Instructions: Consult to OT for:: Evaluation and Treat Consult to Physical Therapy Routine Comment: Physician Instructions: Consult to PT for:: Evaluation and Treat Discharge Diagnosis (1) Acute kidney injury superimposed on CKD: (2) Hypomagnesemia: (3) Hypocalcemia: (4) Hypokalemia: (5) Iron deficiency: (6) Vitamin B12 deficiency: (7) BPH loc w urin obs/LUTS: Final Diagnosis Final Discharge Diagnosis: as above Summary Hospital Course Hospital course: This is a 59-year-old male patient with past med history of BPH, COPD, coronaryartery disease, CKD stage IIIb follows with me in renal office, GERD and A-fib, A-fib, diabetes, peripheral vascular disease. Patient presented to the hospitalfor sudden onset of tingling's and numbness all over his bodyalong with dizziness and lightheadedness. Patient had CT of the head in the emergency roomwhich wasnegative for acute process. Lab revealed creatinine up to 2.6 mg deciliter from baseline at around 2.2 mg deciliter last month. Magnesium is wasfound to be severely low at 0.5 mg deciliter, calcium 6.1, potassium 3.1. Patient was admitted and received 6 g of magnesium sulfate in addition to 1 g ofcalcium gluconate and 40 mill equivalents of oral potassium. Patient also started on IV fluid normal saline with 20 mill equivalent KCl at 125 cc/h. Patient also was found to have vitamin B12 deficiency and started on oral supplement. Patient also has iron deficiency with iron saturation 7% and ferritin 5.3. Hemoglobin 11.6. Nephrology was consulted. During hospital course, patient was started on IV fluids continuous as noted andrequired multiple IV and p.o. supplements of potassium, magnesium, calcium with serial labs to monitor for improvement.Nephrology input appreciated, as of today patient blood work showed much improvement and kidney function has improved as well close to his baseline. We had to hold his Jardiance, valsartanand hydrochlorothiazide and adjusted his pregabalin given change in creatinine clearance, patient is much improved and feels back to his baseline, his presenting symptoms have resolved. Patient is medically stable for discharge from nephrology standpoint. Patient was evaluated by PT/OT who recommended inpatient rehab where the patient is identified to go home. Okay to resume valsartan, hydrochlorothiazide, Jardiance as per nephrology recommendation, continue to hold Lasix, will need to follow-up with nephrology office as indicated with repeat blood work as directed. discussed with patient at bedside,all questions answered, patient in agreement and comfortable with the plan. Condition Condition at Discharge: Stable Status at Discharge Overall status at discharge: patient is back to baseline Time Spent with Patient Time spent providing/coordinating discharge services (# min): 41 Discharge Plan Discharge Plan Patient Disposition: Home Activity: Ambulate as Tolerated Diet: Regular Instructions: Know your Meds Prescriptions: New calcium carbonate-vitamin D3 [Oyster Shell Calcium-Vit D3] 500 mg-5 mcg (200 unit) Tablet 2 tab PO TID.WITH.MEALS Qty: 90 0RF pregabalin 75 mg Capsule 75 mg PO TID 30 Days Qty: 90 0RF Continued (DME) pen needle, diabetic [Comfort EZ Pen Chadron] 32 gauge x 5/32 needle See Rx Instructions .Route Qty: 100 5RF Rx Instructions: As directed hydroxyzine HCl 25 mg tablet 25 mg PO QHS Qty: 90 1RF Trulicity 0.75 mg/0.5 mL pen injector 0.75 mg subcut QWEEK Qty: 2 3RF Jardiance 10 mg tablet 10 mg PO DAILY Qty: 90 3RF omeprazole 40 mg capsule,delayed release(DR/EC) 40 mg PO DAILY Qty: 90 3RF Januvia 100 mg tablet 100 mg PO DAILY Qty: 90 3RF clonazepam [Klonopin] 0.5 mg tablet 0.5 mg PO .every morning 30 Days Qty: 30 1RF atorvastatin 80 mg tablet 80 mg PO DAILY Qty: 90 1RF glimepiride 2 mg tablet 2 mg PO BID Qty: 180 1RF albuterol sulfate [ProAir HFA] 90 mcg/actuation Hfa Aerosol Inhaler 2 puff INHALATION Q6HR PRN (Reason: Shortness Of Breath) tiotropium bromide [Spiriva with HandiHaler] 18 mcg capsule, w/inhalation device 1 cap inhalation DAILY Rx Instructions: puncture 1 cap using device; one dose = 2 inhalations isosorbide mononitrate 30 mg tablet extended release 24 hr 30 mg PO DAILY tizanidine 4 mg tablet 4 mg PO QHS valsartan-hydrochlorothiazide [Diovan HCT] 160-12.5 mg tablet 1 tab PO DAILY ropinirole 0.5 mg tablet 1 mg PO TID metoprolol tartrate 25 mg Tablet 100 mg PO BID Rx Instructions: Hold for SBP < 125 or HR < 70 nitroglycerin [Nitrostat] 0.4 mg tablet, sublingual 0.4 mg sublingual Q5-15M PRN (Reason: chest pain) Rx Instructions: do not exceed 3 doses per episode clopidogrel 75 mg tablet 75 mg PO DAILY tamsulosin [Flomax] 0.4 mg capsule 0.4 mg PO BID budesonide-formoterol 160-4.5 mcg/actuation HFA aerosol inhaler 2 puff inhalation BID aspirin 81 mg tablet,delayed release (DR/EC) 81 mg PO DAILY metformin 1,000 mg tablet 1,000 mg PO BID sildenafil 100 mg tablet 100 mg PO DAILY PRN (Reason: sexual activity) Qty: 30 0RF Rx Instructions: administer 30 minutes to 4 hours before activity (DME) insulin syringe,safety needle 1 mL 30 gauge x 1/2 syringe See Rx Instructions .Route Qty: 100 5RF Rx Instructions: As directed (DME) FreeStyle Jigar 2 Sensor Kit See Rx Instructions .Route Qty: 1 0RF Rx Instructions: As directed (DME) FreeStyle Jigar 2 Ensign Misc See Rx Instructions .Route Qty: 1 0RF Rx Instructions: As directed amitriptyline 25 mg tablet 25 mg PO DAILY magnesium oxide 400 mg magnesium tablet 400 mg PO DAILY Qty: 90 1RF Ajovy Autoinjector 225 mg/1.5 mL auto-injector 225 mg subcut QMONTH Nurtec ODT 75 mg tablet,disintegrating 75 mg PO Q48HR Held furosemide [Lasix] 40 mg tablet 40 mg PO DAILY Hold Instructions: hold Discontinued pregabalin 200 mg capsule 200 mg PO TID 90 Days Qty: 270 1RF hydrocodone-acetaminophen 5-325 mg tablet 1 tab PO Q4-6H PRN (Reason: pain) 2 Days Qty: 6 0RF doxycycline hyclate 100 mg capsule 100 mg PO BID Patient Comments: for 3 weeks. Exam Physical Exam Vital Signs: Temp Pulse Resp BP Pulse Ox O2 Del Method 97.6 F 62 18 114/70 99 Room Air 08/13/24 08:21 08/13/24 11:51 08/13/24 11:51 08/13/24 11:38 08/13/24 11:38 08/13/24 11:38 Narrative: Const General: cooperative HEENT Normal oropharyngeal mucosa without any ulcers or exudates Eyes: Conjunctiva normal Pulmonary Auscultation: clear to auscultation , no crackles, no wheezes Cardiovascular Rate: normal rate Rhythm: regular rhythm Heart Sounds: S1 normal, S2 normal and no murmurs GI Inspection: non-distended Palpation: soft, not firm and nontender. No rigidity or rebound. Deferred Neuro General: alert, awake and oriented x3. No obvious new focal deficit Musculoskeletal: normal range of motion Extrem General: no cyanosis, R BKA Psych Appearance: appropriate affect. Grossly normal Diagnostic Studies Completed and Pending Studies Pending studies at discharge: 08/11/24 07:17 Stool Occult Blood (Guaiac) Routine Labs on day of discharge: 08/13/24 11:18: POC Glucose 150 08/13/24 06:25: POC Glucose 173 08/13/24 05:24: Corrected WBC 8.0, RBC 4.42, Hgb 9.5 L, Hct 30.0 L, MCV 67.8 L, MCH 21.5 L, MCHC 31.7 L, RDW 19.9 H, Plt Count 153, MPV 10.1, PHA Creatinine Clear 54.91, Sodium 139, Potassium 4.2, Chloride 111 H, Carbon Dioxide 21.5, Anion Gap 10.7, BUN 13, Creatinine 1.59 H, Est GFR (CKD-EPI) 49.698, Glucose 140 H, Calcium 7.5 L, Total Bilirubin 0.3, AST 12 L, ALT 9, Alkaline Phosphatase 93, Total Protein 5.8 L, Albumin 3.4 L, Globulin 2.4, Albumin/Globulin Ratio 1.4 08/12/24 21:03: POC Glucose 168 08/12/24 16:15: POC Glucose 162 Documented By: Kevon Viera MD 08/13/24 14 35 Signed By: 08/13/24 1439 [facility]03-11-2025 Progress note Author Maurice Francis [facility] Note Date/Time August 13, 2024 11: 06am [facility] [address] [place], [place] [id number] Nephrology Progress Note Signed Patient: Myra Pickard SR MR#: [id number] : 1965 Acct:[id number] Age/Sex: 59 / M Adm Date: 5 Loc: 3T Room: [address] [place] [address] Type: ADM IN Attending Dr: Kevon Viera MD Copies to: ~ Date of Service: 08/13/2024 Subjective Subjective Narrative: This is a 59-year-old male patient with past med history of BPH, COPD, coronaryartery disease, CKD stage IIIb follows with me in renal office, GERD and A-fib, A-fib, diabetes, peripheral vascular disease. Patient presented to the hospitalfor sudden onset of tingling's and numbness all over his body along with dizziness and lightheadedness. Patient had CT of the head in the emergency roomwhich was negative for acute process. Lab revealed creatinine up to 2.6 mg deciliter from baseline at around 2.2 mg deciliter last month. Magnesium is wasfound to be severely low at 0.5 mg deciliter, calcium 6.1, potassium 3.1. Patient was admitted and received 6 g of magnesium sulfate in addition to 1 g ofcalcium gluconate and 40 mill equivalents of oral potassium. Patient also started on IV fluid normal saline with 20 mill equivalent KCl at 125 cc/h. Patient also was found to have vitamin B12 deficiency and started on oral supplement. Patient also has iron deficiency with iron saturation 7% and ferritin 5.3. Hemoglobin 11.6 Renal team was consulted for acute kidney injury on chronic kidney disease. INTERIM HISTORY: Patient was seen and examined at bedside. Denies any chest pain palpation cough nausea vomit diarrhea and shortness of breath Exam Physical Exam Vital Signs: Temp Pulse Resp BP Pulse Ox O2 Del Method 97.6 F 67 18 136/86 99 Room Air 08/13/24 08:21 08/13/24 08:21 08/13/24 08:21 08/13/24 08:21 08/13/24 08:21 08/13/24 08:23 Narrative: General: Appears comfortable and not in distress Heart: S1-S2, no rub Lung: Bilateral air entry, no wheezing or crackles Abdomen: Soft, positive bowel sounds Extremities: No edema, no cyanosis Head: Atraumatic, normocephalic Ear: No gross hearing Deficit or external ear redness Eyes: No pallor or redness Neck: No JVD or visible mass Skin: No rashes , warm to touch 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: Awake,Alert, 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 Musculoskeletal: No swelling or limitation of movement of the large joints Psychiatric: Cooperative, normal mood and affect Objective Intake and Output I&O: Intake & Output 08/10/24 08/12/24 08/12/24 08/13/24 23:59 00:59 23:59 23:59 Intake Total 2760 / 2760 1880 / 1880 400 / 400 Output Total 2150 / 2150 3025 / 3025 1650 / 1650 Balance 610 / 610 -1145 / -1145 -1250 / -1250 Weight 91.3 kg 90 kg 91.5 kg Meds and Allergies Meds: Active Medications Acetaminophen (Acetaminophen 325 Mg Tablet) 650 mg PO Q4H PRN PRN Reason: Pain Scale 1 - 5 Stop: 08/11/25 05:38 Last Admin: 08/12/24 20:22 Dose: 650 mg Albuterol (Albuterol Neb 2.5 Mg/3 Ml Vial.Neb) 2.5 mg INHALATION Q2H PRN PRN Reason: Shortness Of Breath Stop: 08/11/25 05:38 Amitriptyline HCl (Amitriptyline 25 Mg Tablet) 25 mg PO HS [facility] Stop: 08/11/25 21:59 Last Admin: 08/12/24 21:48 Dose: 25 mg Aspirin (Aspirin 81 Mg Tablet.) 81 mg PO DAILY [facility] Stop: 08/11/25 08:59 Last Admin: 08/13/24 08:25 Dose: 81 mg Atorvastatin Calcium (Atorvastatin 80 Mg Tablet) 80 mg PO DAILY [facility] Stop: 08/11/25 08:59 Last Admin: 08/13/24 08:25 Dose: 80 mg Budesonide/Formoterol Fumarate (Budesonide/Formoterol 160-4.5 Mcg 60 Puff/6 Gm Hfa.Aer.Ad) 2 puff INHALATION BID [facility] Stop: 08/11/25 08:59 Last Admin: 08/13/24 07:54 Dose: 2 puff Calcium Carbonate (Calcium Carbonate/Vitamin D3 500 Mg/200 Unit Tablet) 2 tab PO TID.WITH.MEALS [facility] Stop: 08/11/25 07:59 Last Admin: 08/13/24 08:25 Dose: 2 tab Clopidogrel Bisulfate (Clopidogrel Bisulfate 75 Mg Tablet) 75 mg PO DAILY [facility] Stop: 08/11/25 08:59 Last Admin: 08/13/24 08:25 Dose: 75 mg Cyanocobalamin (Cyanocobalamin 1,000 Mcg/Ml Vial) 1,000 mcg IM DAILY [facility] Stop: 08/17/24 09:01 Last Admin: 08/13/24 08:25 Dose: 1,000 mcg Dextrose (Dextrose 50% In Water 25 Gm/50 Ml Syringe) 0 gm IV-PUSH PRN PRN PRN Reason: Hypoglycemia Stop: 08/11/25 05:38 Docusate Sodium (Docusate 100 Mg Capsule) 200 mg PO BID PRN PRN Reason: Constipation Stop: 08/11/25 05:38 Glucose (Dextrose 40% Gel 15 Gm Tube) 0 gm PO PRN PRN PRN Reason: Hypoglycemia Stop: 08/11/25 05:38 Heparin Sodium (Porcine) (Heparin 5,000 Unit/Ml Vial) 5,000 unit SUBCUT Q12HR [facility] Stop: 08/11/25 08:59 Last Admin: 08/13/24 08:25 Dose: 5,000 unit Hydralazine HCl (Hydralazine 20 Mg/Ml Vial) 10 mg IV-PUSH Q4H PRN PRN Reason: if SBP > 185 Stop: 08/11/25 05:38 Ferric Sodium Gluconate Complex 250 mg/ Sodium Chloride 270 mls @ 135 mls/hr IVQAM [facility] Stop: 08/14/24 10:59 Last Admin: 08/12/24 09:19 Dose: 135 mls/hr Insulin Aspart (Insulin Aspart 300 Units/3 Ml) 0 units SUBCUT TID.WM.HS [facility]; Protocol Stop: 08/11/25 07:59 Last Admin: 08/13/24 08:25 Dose: 1 units Ipratropium [place] (Ipratropium [place] 0.5 Mg/2.5 Ml Vial.Neb) 0.5 mg INHALATION QID.RESP [facility] Stop: 08/11/25 07:59 Last Admin: 08/13/24 07:54 Dose: 0.5 mg Isosorbide Mononitrate (Isosorbide Mononitrate 24hr Er 30 Mg Tab.Er.24h) 30 mg PO DAILY [facility] Stop: 08/11/25 08:59 Last Admin: 08/13/24 08:25 Dose: 30 mg Metoprolol Tartrate (Metoprolol Tartrate 100 Mg Tablet) 100 mg PO BID [facility] Stop: 08/11/25 08:59 Last Admin: 08/13/24 08:25 Dose: 100 mg Pantoprazole Sodium (Pantoprazole 40 Mg Tablet.Dr) 40 mg PO BID [facility] Stop: 08/11/25 08:59 Last Admin: 08/13/24 08:25 Dose: 40 mg Pregabalin (Pregabalin 75 Mg Capsule) 75 mg PO TID [facility] Stop: 02/07/25 08:59 Last Admin: 08/13/24 08:25 Dose: 75 mg Ropinirole HCl (Ropinirole 1 Mg Tablet) 1 mg PO TID [facility] Stop: 08/11/25 08:59 Last Admin: 08/13/24 08:25 Dose: 1 mg Tamsulosin HCl (Tamsulosin 0.4 Mg Cap.Er.24h) 0.4 mg PO BID [facility] Stop: 08/11/25 08:59 Last Admin: 08/13/24 08:25 Dose: 0.4 mg Tizanidine HCl (Tizanidine 4 Mg Tablet) 4 mg PO QHS [facility] Stop: 08/11/25 21:59 Last Admin: 08/12/24 21:48 Dose: 4 mg Allergies Penicillins Allergy (Unknown, Verified 08/11/24 04:06) Anaphylaxis latex Allergy (Verified 08/11/24 04:06) Unknown Reaction Results - Nephrology Labs 08/13/24 05:24 08/13/24 05:24 Labs: 08/12/24 08/13/24 05:01 05:24 BUN 13 Creatinine 1.59 H Albumin 3.5 3.4 L Radiology Impressions Impressions - last 24 hours: Any impression(s) listed above is documentation that was entered by the reading physician into a diagnostic report(s) for Myra Pickard SR. I have reviewed the report(s) and am incorporating any findings in the treatment plan of this patient where applicable. A&P - Nephrology Assessment/Plan (1) Acute kidney injury superimposed on CKD: Assessment/Problem Details: Patient has CKD stage IIIb from diabetic and hypertensive nephropathy. Baselinecreatinine fluctuate depending on the volume status and variation in blood pressure. Patient received IV contrast at admission for CTA of the head. Serumcreatinine at presentation 2.6 mg deciliter. Patient stated he has been making urine. (2) Hypomagnesemia: Assessment/Problem Details: Patient has been on PPI twice daily for GERD symptoms. He follows with Dr. Burleson in GI clinic. Magnesium level at presentation 0.5 mmol/L. Patient received 6 g of magnesium sulfate (3) Hypocalcemia: Assessment/Problem Details: This is likely from hypomagnesemia. Serum calcium level 6.1 on presentation. Patient received 1 g of calcium gluconate (4) Hypokalemia: Assessment/Problem Details: This is likely also from hypomagnesemia. Patient received 40 mill equivalent p.o. at admission and currently on IV KCl and normal saline (5) Iron deficiency: Assessment/Problem Details: Lab study revealed iron saturation only 7% with very low ferritin level. (6) Vitamin B12 deficiency: Assessment/Problem Details: Serum vitamin B12 level at admission 129. Patient currently on cyanocobalamin 10 mcg p.o. daily (7) BPH loc w urin obs/LUTS: Assessment/Problem Details: patient takes Flomax twice daily at home Plan * OK to resume home Jardiance, valsartan/hydrochlorothiazide * Continue to hold Lasix upon discharge * Continue calcium plus vitamin D 2 tablet p.o. 3 times daily for hypocalcemia. * Continue IV Ferrlecit 250 mg X4. It can be changed to oral iron upon discharge. * Continue vitamin B12 supplement * Check CBC renal function panel to 5 days after discharge. * Patient can be discharged from renal standpoint.Outpatient follow-up with Dr. Fagan in 4 to 6 weeks Documented By: Maurice Francis MD 08/13/24 3337 Signed By: <Electronically signed by Maurice Francis MD> 08/13/24 6506 [facility] Work Phone: 1(507) 335-570103-11-2025 [place] [address] Nephrology Progress Note Signed Patient: Myra Pickard SR MR#: [id number] : 1965 Acct:[id number] Age/Sex: 59 / M Adm Date: 5 Loc: 3T Room: [address] [place] [address] Type: ADM IN Attending Dr: Kevon Viera MD Copies to: ~ Date of Service: 08/13/2024 Subjective Subjective Narrative: This is a 59-year-old male patient with past med history of BPH, COPD, coronaryartery disease, CKD stage IIIb follows with me in renal office, GERD and A-fib, A-fib, diabetes, peripheral vascular disease. Patient presented to the hospitalfor sudden onset of tingling's and numbness all over his bodyalong with dizziness and lightheadedness. Patient had CT of the head in the emergency roomwhich wasnegative for acute process. Lab revealed creatinine up to 2.6 mg deciliter from baseline at around 2.2 mg deciliter last month. Magnesium is wasfound to be severely low at 0.5 mg deciliter, calcium 6.1, potassium 3.1. Patient was admitted and received 6 g of magnesium sulfate in addition to 1 g ofcalcium gluconate and 40 mill equivalents of oral potassium. Patient also started on IV fluid normal saline with 20 mill equivalent KCl at 125 cc/h. Patient also was found to have vitamin B12 deficiency and started on oral supplement. Patient also has iron deficiency with iron saturation 7% and ferritin 5.3. Hemoglobin 11.6 Renal team was consulted for acute kidney injury on chronic kidney disease. INTERIM HISTORY: Patient was seen and examined at bedside. Denies any chest pain palpation cough nausea vomit diarrhea and shortness of breath Exam Physical Exam Vital Signs: Temp Pulse Resp BP Pulse Ox O2 Del Method 97.6 F 67 18 136/86 99 Room Air 08/13/24 08:21 08/13/24 08:21 08/13/24 08:21 08/13/24 08:21 08/13/24 08:21 08/13/24 08:23 Narrative: General: Appears comfortable and not in distress Heart: S1-S2, no rub Lung: Bilateral air entry, no wheezing or crackles Abdomen: Soft, positive bowel sounds Extremities: No edema, no cyanosis Head: Atraumatic, normocephalic Ear: No gross hearing Deficit or external ear redness Eyes: No pallor or redness Neck: No JVD or visible mass Skin: No rashes , warm to touch 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: Awake,Alert, 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 Musculoskeletal: No swelling or limitation of movement of the large joints Psychiatric: Cooperative, normal mood and affect Objective Intake and Output I&O: Intake & Output 08/10/24 08/12/24 08/12/24 08/13/24 23:59 00:59 23:59 23:59 Intake Total 2760 / 2760 1880 / 1880 400 / 400 Output Total 2150 / 2150 3025 / 3025 1650 / 1650 Balance 610 / 610 -1145 / -1145 -1250 / -1250 Weight 91.3 kg 90 kg 91.5 kg Meds and Allergies Meds: Active Medications Acetaminophen (Acetaminophen 325 Mg Tablet) 650 mg PO Q4H PRN PRN Reason: Pain Scale 1 - 5 Stop: 08/11/25 05:38 Last Admin: 08/12/24 20:22 Dose: 650 mg Albuterol (Albuterol Neb 2.5 Mg/3 Ml Vial.Neb) 2.5 mg INHALATION Q2H PRN PRN Reason: Shortness Of Breath Stop: 08/11/25 05:38 Amitriptyline HCl (Amitriptyline 25 Mg Tablet) 25 mg PO HS [facility] Stop: 08/11/25 21:59 Last Admin: 08/12/24 21:48 Dose: 25 mg Aspirin (Aspirin 81 Mg Tablet.) 81 mg PO DAILY [facility] Stop: 08/11/25 08:59 Last Admin: 08/13/24 08:25 Dose: 81 mg Atorvastatin Calcium (Atorvastatin 80 Mg Tablet) 80 mg PO DAILY [facility] Stop: 08/11/25 08:59 Last Admin: 08/13/24 08:25 Dose: 80 mg Budesonide/Formoterol Fumarate (Budesonide/Formoterol 160-4.5 Mcg 60 Puff/6 Gm Hfa.Aer.Ad) 2 puff INHALATION BID [facility] Stop: 08/11/25 08:59 Last Admin: 08/13/24 07:54 Dose: 2 puff Calcium Carbonate (Calcium Carbonate/Vitamin D3 500 Mg/200 Unit Tablet) 2 tab PO TID.WITH.MEALS [facility] Stop: 08/11/25 07:59 Last Admin: 08/13/24 08:25 Dose: 2 tab Clopidogrel Bisulfate (Clopidogrel Bisulfate 75 Mg Tablet) 75 mg PO DAILY [facility] Stop: 08/11/25 08:59 Last Admin: 08/13/24 08:25 Dose: 75 mg Cyanocobalamin (Cyanocobalamin 1,000 Mcg/Ml Vial) 1,000 mcg IM DAILY [facility] Stop: 08/17/24 09:01 Last Admin: 08/13/24 08:25 Dose: 1,000 mcg Dextrose (Dextrose 50% In Water 25 Gm/50 Ml Syringe) 0 gm IV-PUSH PRN PRN PRN Reason: Hypoglycemia Stop: 08/11/25 05:38 Docusate Sodium (Docusate 100 Mg Capsule) 200 mg PO BID PRN PRN Reason: Constipation Stop: 08/11/25 05:38 Glucose (Dextrose 40% Gel 15 Gm Tube) 0 gm PO PRN PRN PRN Reason: Hypoglycemia Stop: 08/11/25 05:38 Heparin Sodium (Porcine) (Heparin 5,000 Unit/Ml Vial) 5,000 unit SUBCUT Q12HR [facility] Stop: 08/11/25 08:59 Last Admin: 08/13/24 08:25 Dose: 5,000 unit Hydralazine HCl (Hydralazine 20 Mg/Ml Vial) 10 mg IV-PUSH Q4H PRN PRN Reason: if SBP > 185 Stop: 08/11/25 05:38 Ferric Sodium Gluconate Complex 250 mg/ Sodium Chloride 270 mls @ 135 mls/hr IVQAM [facility] Stop: 08/14/24 10:59 Last Admin: 08/12/24 09:19 Dose: 135 mls/hr Insulin Aspart (Insulin Aspart 300 Units/3 Ml) 0 units SUBCUT TID.WM.[facility]; Protocol Stop: 08/11/25 07:59 Last Admin: 08/13/24 08:25 Dose: 1 units Ipratropium [place] (Ipratropium [place] 0.5 Mg/2.5 Ml Vial.Neb) 0.5 mg INHALATION QID.RESP [facility] Stop: 08/11/25 07:59 Last Admin: 08/13/24 07:54 Dose: 0.5 mg Isosorbide Mononitrate (Isosorbide Mononitrate 24hr Er 30 Mg Tab.Er.24h) 30 mg PO DAILY [facility] Stop: 08/11/25 08:59 Last Admin: 03/11/25 08:25 Dose: 30 mg Metoprolol Tartrate (Metoprolol Tartrate 100 Mg Tablet) 100 mg PO BID [facility] Stop: 08/11/25 08:59 Last Admin: 08/13/24 08:25 Dose: 100 mg Pantoprazole Sodium (Pantoprazole 40 Mg Tablet.Dr) 40 mg PO BID [facility] Stop: 08/11/25 08:59 Last Admin: 08/13/24 08:25 Dose: 40 mg Pregabalin (Pregabalin 75 Mg Capsule) 75 mg PO TID [facility] Stop: 02/07/25 08:59 Last Admin: 08/13/24 08:25 Dose: 75 mg Ropinirole HCl (Ropinirole 1 Mg Tablet) 1 mg PO TID [facility] Stop: 08/11/25 08:59 Last Admin: 08/13/24 08:25 Dose: 1 mg Tamsulosin HCl (Tamsulosin 0.4 Mg Cap.Er.24h) 0.4 mg PO BID [facility] Stop: 08/11/25 08:59 Last Admin: 08/13/24 08:25 Dose: 0.4 mg Tizanidine HCl (Tizanidine 4 Mg Tablet) 4 mg PO QHS [facility] Stop: 08/11/25 21:59 Last Admin: 08/12/24 21:48 Dose: 4 mg Allergies Penicillins Allergy (Unknown, Verified 08/11/24 04:06) Anaphylaxis latex Allergy (Verified 08/11/24 04:06) Unknown Reaction Results - Nephrology Labs 08/13/24 05:24 08/13/24 05:24 Labs: 08/12/24 08/13/24 05:01 05:24 BUN 13 Creatinine 1.59 H Albumin 3.5 3.4 L Radiology Impressions Impressions - last 24 hours: Any impression(s) listed above is documentation that was entered by the reading physician into a diagnostic report(s) for Myra Pickard SR. I have reviewed the report(s) and am incorporating any findings in the treatment plan of this patient where applicable. A&P - Nephrology Assessment/Plan (1) Acute kidney injury superimposed on CKD: Assessment/Problem Details: Patient has CKD stage IIIb from diabetic and hypertensive nephropathy. Baselinecreatinine fluctuatedepending on the volume status and variation in blood pressure. Patient received IV contrast at admission for CTA of the head. Serumcreatinine at presentation 2.6 mg deciliter. Patient stated he has been making urine. (2) Hypomagnesemia: Assessment/Problem Details: Patient has been on PPI twice daily for GERD symptoms. He follows with Dr. Burleson in GI clinic. Magnesium level at presentation 0.5 mmol/L. Patient received 6 g of magnesium sulfate (3) Hypocalcemia: Assessment/Problem Details: This is likely from hypomagnesemia. Serum calcium level 6.1 on presentation. Patient received 1 g of calcium gluconate (4) Hypokalemia: Assessment/Problem Details: This is likely also from hypomagnesemia. Patient received 40 mill equivalent p.o. at admission and currently on IV KCl and normal saline (5) Iron deficiency: Assessment/Problem Details: Lab study revealed iron saturation only 7% with very low ferritin level. (6) Vitamin B12 deficiency: Assessment/Problem Details: Serum vitamin B12 level at admission 129. Patient currently on cyanocobalamin 10 mcg p.o. daily (7) BPH loc w urin obs/LUTS: Assessment/Problem Details: patient takes Flomax twice daily at home Plan * OK to resume home Jardiance, valsartan/hydrochlorothiazide * Continue to hold Lasix upon discharge * Continue calcium plus vitamin D 2 tablet p.o. 3 times daily for hypocalcemia. * Continue IV Ferrlecit 250 mg X4. It can be changed to oral iron upon discharge. * Continue vitamin B12 supplement * Check CBC renal function panel to 5 days after discharge. * Patient can be discharged from renal standpoint.Outpatient follow-up with Dr. Fagan in 4 to 6 weeks Documented By: Maurice Francis MD 08/13/24 0855 Signed By: 08/13/24 1106 [facility]03-10-2025 Progress note Author Kevon Viera [facility] Note Date/Time August 12, 2024 3:1 6pm [facility] [address] [place] [address] Hospitalist Progress Note Signed Patient: Myra Pickard SR MR#: [id number] : 1965 Acct:[id number] Age/Sex: 59 / M Adm Date: 5 Loc: 3T Room: [address] [place] [address] Type: ADM IN Attending Dr: Kevon Viera MD Copies to: ~ Date of Service: 08/12/2024 Subjective Subjective Narrative: Patient was evaluated at bedside, with afebrile here, no leukocytosis, patient overall feeling better. Denies nausea or vomiting, tolerating diet, labs showing improvement. Nephrology team following. Exam Physical Exam Vital Signs: Temp Pulse Resp BP Pulse Ox O2 Del Method 97.8 F 72 18 101/60 98 Room Air 08/12/24 08:23 08/12/24 12:32 08/12/24 12:32 08/12/24 11:16 08/12/24 11:16 08/12/24 11:16 Narrative: Const General: cooperative HEENT Normal oropharyngeal mucosa without any ulcers or exudates Eyes: Conjunctiva normal Pulmonary Auscultation: clear to auscultation , no crackles, no wheezes Cardiovascular Rate: normal rate Rhythm: regular rhythm Heart Sounds: S1 normal, S2 normal and no murmurs GI Inspection: non-distended Palpation: soft, not firm and nontender. No rigidity or rebound. Deferred Neuro General: alert, awake and oriented x3. No obvious new focal deficit Musculoskeletal: normal range of motion Extrem General: no cyanosis, R BKA Psych Appearance: appropriate affect. Grossly normal Objective Lab Results 08/12/24 05:01 08/12/24 05:01 Meds Allergies and Active Meds Allergies Penicillins Allergy (Unknown, Verified 08/11/24 04:06) Anaphylaxis latex Allergy (Verified 08/11/24 04:06) Unknown Reaction Active Meds: Active Medications Generic Name Dose Route Start Last Admin Trade Name Tdq PRN Reason Stop Dose Admin Acetaminophen 650 mg 08/11/24 05:39 08/11/24 06:59 Acetaminophen 325 Mg Tablet PO 08/11/25 05:38 650 mg Q4H PRN Administration Pain Scale 1 - 5 Albuterol 2.5 mg 08/11/24 05:39 Albuterol Neb 2.5 Mg/3 Ml Vial.Neb INHALATION 08/11/25 05:38 Q2H PRN Shortness Of Breath Amitriptyline HCl 25 mg 08/11/24 22:00 08/11/24 21:17 Amitriptyline 25 Mg Tablet PO 08/11/25 21:59 25 mg HS [facility] Administration Aspirin 81 mg 08/11/24 09:00 08/12/24 08:27 Aspirin 81 Mg Tablet.Dr PO 08/11/25 08:59 81 mg DAILY [facility] Administration Atorvastatin Calcium 80 mg 08/11/24 09:00 08/12/24 08:27 Atorvastatin 80 Mg Tablet PO 08/11/25 08:59 80 mg DAILY [facility] Administration Budesonide/Formoterol Fumarate 2 puff 08/11/24 09:00 08/12/24 08:52 Budesonide/Formoterol 160-4.5 Mcg 60 Puff/6 Gm Hfa.Aer.Ad INHALATION 08/11/25 08:59 2 puff BID [facility] Administration Calcium Carbonate 2 tab 08/11/24 08:00 08/12/24 11:19 Calcium Carbonate/Vitamin D3 500 Mg/200 Unit Tablet PO 08/11/25 07:59 2 tab TID.WITH.MEALS [facility] Administration Clopidogrel Bisulfate 75 mg 08/11/24 09:00 08/12/24 08:27 Clopidogrel Bisulfate 75 Mg Tablet PO 08/11/25 08:59 75 mg DAILY [facility] Administration Cyanocobalamin 1,000 mcg 08/11/24 09:00 08/12/24 08:27 Cyanocobalamin 1,000 Mcg/Ml Vial IM 08/17/24 09:01 1,000 mcg DAILY [facility] Administration Dextrose 0 gm 08/11/24 05:39 Dextrose 50% In Water 25 Gm/50 Ml Syringe IV-PUSH 08/11/25 05:38 PRN PRN Hypoglycemia Docusate Sodium 200 mg 08/11/24 05:39 Docusate 100 Mg Capsule PO 08/11/25 05:38 BID PRN Constipation Glucose 0 gm 08/11/24 05:39 Dextrose 40% Gel 15 Gm Tube PO 08/11/25 05:38 PRN PRN Hypoglycemia Heparin Sodium (Porcine) 5,000 unit 08/11/24 09:00 08/12/24 08:27 Heparin 5,000 Unit/Ml Vial SUBCUT 08/11/25 08:59 5,000 unit Q12HR [facility] Administration Hydralazine HCl 10 mg 08/11/24 05:39 Hydralazine 20 Mg/Ml Vial IV-PUSH 08/11/25 05:38 Q4H PRN if SBP > 185 Potassium Chloride/Sodium Chloride 1,000 mls @ 125 mls/hr 08/11/24 07:15 08/12/24 08:26 0.9 % Nacl-20 Meq Kcl IV 08/11/25 07:14 125 mls/hr .Q8H [facility] Administration Ferric Sodium Gluconate 270 mls @ 135 mls/hr 08/11/24 15:00 08/12/24 09:19 Complex 250 mg/ Sodium IV 08/14/24 10:59 135 mls/hr Chloride QAM [facility] Administration Insulin Aspart 0 units 08/11/24 08:00 08/12/24 11:33 Insulin Aspart 300 Units/3 Ml SUBCUT 08/11/25 07:59 1 units TID.WM.HS [facility] Administration Protocol Ipratropium [place] 0.5 mg 08/11/24 08:00 08/12/24 12:31 Ipratropium [place] 0.5 Mg/2.5 Ml Vial.Neb INHALATION 08/11/25 07:59 0.5 mg QID.RESP [facility] Administration Isosorbide Mononitrate 30 mg 08/11/24 09:00 08/12/24 08:27 Isosorbide Mononitrate 24hr Er 30 Mg Tab.Er.24h PO 08/11/25 08:59 30 mg DAILY [facility] Administration Metoprolol Tartrate 100 mg 08/11/24 09:00 08/12/24 08:27 Metoprolol Tartrate 100 Mg Tablet PO 08/11/25 08:59 100 mg BID [facility] Administration Pantoprazole Sodium 40 mg 08/11/24 09:00 08/12/24 08:27 Pantoprazole 40 Mg Tablet.Dr PO 08/11/25 08:59 40 mg BID [facility] Administration Pregabalin 75 mg 08/11/24 09:00 08/12/24 13:27 Pregabalin 75 Mg Capsule PO 02/07/25 08:59 75 mg TID [facility] Administration Ropinirole HCl 1 mg 08/11/24 09:00 08/12/24 13:27 Ropinirole 1 Mg Tablet PO 08/11/25 08:59 1 mg TID [facility] Administration Tamsulosin HCl 0.4 mg 08/11/24 09:00 08/12/24 08:27 Tamsulosin 0.4 Mg Cap.Er.24h PO 08/11/25 08:59 0.4 mg BID [facility] Administration Tizanidine HCl 4 mg 08/11/24 22:00 08/11/24 21:17 Tizanidine 4 Mg Tablet PO 08/11/25 21:59 4 mg QHS [facility] Administration A&P - Hospitalist Assessment/Plan (1) Acute kidney injury superimposed on CKD: Plan 1. Bilateral paresthesias of the upper and lower extremities without any other focal neurological dysfunction CT scan of the head/CTA of the head and neck done in the emergency room without acute findings Likely due to significant electrolyte abnormalities including severe hypomagnesemia/hypokalemia/hypocalcemia -given IV replacement Vitamin B12 deficiency could contribute as well, started replacement Given additional Calcium supplements today 2. Acute kidney injury with underlying chronic kidney disease stage III baseline creatinine 1.8, Nephrology following We holding Jardiance, valsartan/hydrochlorothiazide and Lasix. 3. Microcytic anemia previously diagnosed with iron deficiency Iron infusions as directed 4. Diabetes mellitus type 2 with hemoglobin A1c 7.3 Continue with home therapy, sliding scale 5. Coronary artery disease status post previous intervention, currently patientdenies any chest pain, troponin negative, EKG nonischemic 6. DVT prophylaxis heparin Discussed with pt at bedside all questions answered If remains stable, plan to discharge tomorrow PT OT recs for rehab however pt declined and would like to go home Documented By: Kevon Viera MD 08/12/24 15 12 Signed By: <Electronically signed by Kevon Virea MD> 08/12/[address] [place] [address] Work Phone: [phone]) 830-163703-10-2025 [place] [address] Hospitalist Progress Note Signed Patient: Myra Pickard MR#: [id number] : 1965 Acct:[id number] Age/Sex: 59 / M Adm Date: 5 Loc: Room: [address] [place] [address] Type: ADM IN Attending Dr: Kevon Viera MD Copies to: ~ Date of Service: 08/12/2024 Subjective Subjective Narrative: Patient was evaluated at bedside, with afebrile here, no leukocytosis, patient overall feeling better. Denies nausea or vomiting, tolerating diet, labs showing improvement. Nephrology team following. Exam Physical Exam Vital Signs: Temp Pulse Resp BP Pulse Ox O2 Del Method 97.8 F 72 18 101/60 98 Room Air 08/12/24 08:23 08/12/24 12:32 08/12/24 12:32 08/12/24 11:16 08/12/24 11:16 08/12/24 11:16 Narrative: Const General: cooperative HEENT Normal oropharyngeal mucosa without any ulcers or exudates Eyes: Conjunctiva normal Pulmonary Auscultation: clear to auscultation , no crackles, no wheezes Cardiovascular Rate: normal rate Rhythm: regular rhythm Heart Sounds: S1 normal, S2 normal and no murmurs GI Inspection: non-distended Palpation: soft, not firm and nontender. No rigidity or rebound. Deferred Neuro General: alert, awake and oriented x3. No obvious new focal deficit Musculoskeletal: normal range of motion Extrem General: no cyanosis, R BKA Psych Appearance: appropriate affect. Grossly normal Objective Lab Results 08/12/24 05:01 08/12/24 05:01 Meds Allergies and Active Meds Allergies Penicillins Allergy (Unknown, Verified 08/11/24 04:06) Anaphylaxis latex Allergy (Verified 08/11/24 04:06) Unknown Reaction Active Meds: Active Medications Generic Name Dose Route Start Last Admin Trade Name Freq PRN Reason Stop Dose Admin Acetaminophen 650 mg 08/11/24 05:39 08/11/24 06:59 Acetaminophen 325 Mg Tablet PO 08/11/25 05:38 650 mg Q4H PRN Administration Pain Scale 1 - 5 Albuterol 2.5 mg 08/11/24 05:39 Albuterol Neb 2.5 Mg/3 Ml Vial.Neb INHALATION 08/11/25 05:38 Q2H PRN Shortness Of Breath Amitriptyline HCl 25 mg 08/11/24 22:00 08/11/24 21:17 Amitriptyline 25 Mg Tablet PO 08/11/25 21:59 25 mg HS [facility] Administration Aspirin 81 mg 08/11/24 09:00 08/12/24 08:27 Aspirin 81 Mg Tablet.Dr PO 08/11/25 08:59 81 mg DAILY [facility] Administration Atorvastatin Calcium 80 mg 08/11/24 09:00 08/12/24 08:27 Atorvastatin 80 Mg Tablet PO 08/11/25 08:59 80 mg DAILY [facility] Administration Budesonide/Formoterol Fumarate 2 puff 08/11/24 09:00 08/12/24 08:52 Budesonide/Formoterol 160-4.5 Mcg 60 Puff/6 Gm Hfa.Aer.Ad INHALATION 08/11/25 08:59 2 puff BID [facility] Administration Calcium Carbonate 2 tab 08/11/24 08:00 08/12/24 11:19 Calcium Carbonate/Vitamin D3 500 Mg/200 Unit Tablet PO 08/11/25 07:59 2 tab TID.WITH.MEALS [facility] Administration Clopidogrel Bisulfate 75 mg 08/11/24 09:00 08/12/24 08:27 Clopidogrel Bisulfate 75 Mg Tablet PO 08/11/25 08:59 75 mg DAILY [facility] Administration Cyanocobalamin 1,000 mcg 08/11/24 09:00 08/12/24 08:27 Cyanocobalamin 1,000 Mcg/Ml Vial IM 08/17/24 09:01 1,000 mcg DAILY [facility] Administration Dextrose 0 gm 08/11/24 05:39 Dextrose 50% In Water 25 Gm/50 Ml Syringe IV-PUSH 08/11/25 05:38 PRN PRN Hypoglycemia Docusate Sodium 200 mg 08/11/24 05:39 Docusate 100 Mg Capsule PO 08/11/25 05:38 BID PRN Constipation Glucose 0 gm 08/11/24 05:39 Dextrose 40% Gel 15 Gm Tube PO 08/11/25 05:38 PRN PRN Hypoglycemia Heparin Sodium (Porcine) 5,000 unit 08/11/24 09:00 08/12/24 08:27 Heparin 5,000 Unit/Ml Vial SUBCUT 08/11/25 08:59 5,000 unit Q12HR [facility] Administration Hydralazine HCl 10 mg 08/11/24 05:39 Hydralazine 20 Mg/Ml Vial IV-PUSH 08/11/25 05:38 Q4H PRN if SBP > 185 Potassium Chloride/Sodium Chloride 1,000 mls @ 125 mls/hr 08/11/24 07:15 08/12/24 08:26 0.9 % Nacl-20 Meq Kcl IV 08/11/25 07:14 125 mls/hr .Q8H [facility] Administration Ferric Sodium Gluconate 270 mls @ 135 mls/hr 08/11/24 15:00 08/12/24 09:19 Complex 250 mg/ Sodium IV 08/14/24 10:59 135 mls/hr Chloride QAM [facility] Administration Insulin Aspart 0 units 08/11/24 08:00 08/12/24 11:33 Insulin Aspart 300 Units/3 Ml SUBCUT 08/11/25 07:59 1 units TID.WM.HS [facility] Administration Protocol Ipratropium [place] 0.5 mg 08/11/24 08:00 08/12/24 12:31 Ipratropium [place] 0.5 Mg/2.5 Ml Vial.Neb INHALATION 08/11/25 07:59 0.5 mg QID.RESP [facility] Administration Isosorbide Mononitrate 30 mg 08/11/24 09:00 08/12/24 08:27 Isosorbide Mononitrate 24hr Er 30 Mg Tab.Er.24h PO 08/11/25 08:59 30 mg DAILY [facility] Administration Metoprolol Tartrate 100 mg 08/11/24 09:00 08/12/24 08:27 Metoprolol Tartrate 100 Mg Tablet PO 08/11/25 08:59 100 mg BID [facility] Administration Pantoprazole Sodium 40 mg 08/11/24 09:00 08/12/24 08:27 Pantoprazole 40 Mg Tablet. PO 08/11/25 08:59 40 mg BID [facility] Administration Pregabalin 75 mg 08/11/24 09:00 08/12/24 13:27 Pregabalin 75 Mg Capsule PO 02/07/25 08:59 75 mg TID [facility] Administration Ropinirole HCl 1 mg 08/11/24 09:00 08/12/24 13:27 Ropinirole 1 Mg Tablet PO 08/11/25 08:59 1 mg TID [facility] Administration Tamsulosin HCl 0.4 mg 08/11/24 09:00 08/12/24 08:27 Tamsulosin 0.4 Mg Cap.Er.24h PO 08/11/25 08:59 0.4 mg BID [facility] Administration Tizanidine HCl 4 mg 08/11/24 22:00 08/11/24 21:17 Tizanidine 4 Mg Tablet PO 08/11/25 21:59 4 mg QHS [facility] Administration A&P - Hospitalist Assessment/Plan (1) Acute kidney injury superimposed on CKD: Plan 1. Bilateral paresthesias of the upper and lower extremities without any other focal neurological dysfunction CT scan of the head/CTA of the head and neck done in the emergency room without acute findings Likely due to significant electrolyte abnormalities including severe hypomagnesemia/hypokalemia/hypocalcemia -given IV replacement Vitamin B12 deficiency could contribute as well, started replacement Given additional Calcium supplements today 2. Acute kidney injury with underlying chronic kidney disease stage III baseline creatinine 1.8, Nephrology following We holding Jardiance, valsartan/hydrochlorothiazide and Lasix. 3. Microcytic anemia previously diagnosed with iron deficiency Iron infusions as directed 4. Diabetes mellitus type 2 with hemoglobin A1c 7.3 Continue with home therapy, sliding scale 5. Coronary artery disease status post previous intervention, currently patientdenies any chest pain, troponin negative, EKG nonischemic 6. DVT prophylaxis heparin Discussed with pt at bedside all questions answered If remains stable, plan to discharge tomorrow PT OT recs for rehab however pt declined and would like to go home Documented By: Kevon Viera MD 08/12/24 15 12 Signed By: 08/12/[address] [place], [place] 4084703-10-2025 Progress note Author Maurice Francis [facility] Note Date/Time August 12, 2024 11: 47am [facility] [address] [place] [address] Nephrology Progress Note Signed Patient: Myra Pickard SR MR#: [id number] : 1965 Acct:[id number] Age/Sex: 59 / M Adm Date: 5 Loc: Room: [address] [place] [address] Type: ADM IN Attending Dr: Kevon Viera MD Copies to: ~ Date of Service: 08/12/2024 Subjective Subjective Narrative: This is a 59-year-old male patient with past med history of BPH, COPD, coronaryartery disease, CKD stage IIIb follows with me in renal office, GERD and A-fib, A-fib, diabetes, peripheral vascular disease. Patient presented to the hospitalfor sudden onset of tingling's and numbness all over his body along with dizziness and lightheadedness. Patient had CT of the head in the emergency roomwhich was negative for acute process. Lab revealed creatinine up to 2.6 mg deciliter from baseline at around 2.2 mg deciliter last month. Magnesium is wasfound to be severely low at 0.5 mg deciliter, calcium 6.1, potassium 3.1. Patient was admitted and received 6 g of magnesium sulfate in addition to 1 g ofcalcium gluconate and 40 mill equivalents of oral potassium. Patient also started on IV fluid normal saline with 20 mill equivalent KCl at 125 cc/h. Patient also was found to have vitamin B12 deficiency and started on oral supplement. Patient also has iron deficiency with iron saturation 7% and ferritin 5.3. Hemoglobin 11.6 Renal team was consulted for acute kidney injury on chronic kidney disease. INTERIM HISTORY: Patient was seen and examined at bedside. He is feeling better today and continues to have a high urine output. Denies any chest pain palpation cough nausea vomit diarrhea and shortness of breath Exam Physical Exam Vital Signs: Temp Pulse Resp BP Pulse Ox O2 Del Method 97.8 F 66 18 119/73 96 Room Air 08/12/24 08:23 08/12/24 08:52 08/12/24 08:52 08/12/24 08:23 08/12/24 08:23 08/12/24 08:23 Narrative: General: Appears comfortable and not in distress Heart: S1-S2, no rub Lung: Bilateral air entry, no wheezing or crackles Abdomen: Soft, positive bowel sounds Extremities: No edema, no cyanosis Head: Atraumatic, normocephalic Ear: No gross hearing Deficit or external ear redness Eyes: No pallor or redness Neck: No JVD or visible mass Skin: No rashes , warm to touch 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: Awake,Alert, 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 Musculoskeletal: No swelling or limitation of movement of the large joints Psychiatric: Cooperative, normal mood and affect Objective Intake and Output I&O: Intake & Output 08/09/24 08/10/24 08/12/24 08/12/24 23:59 23:59 00:59 23:59 Intake Total 2760 / 2760 1480 / 1480 Output Total 2150 / 2150 800 / 800 Balance 610 / 610 680 / 680 Weight 91.3 kg 90 kg Meds and Allergies Meds: Active Medications Acetaminophen (Acetaminophen 325 Mg Tablet) 650 mg PO Q4H PRN PRN Reason: Pain Scale 1 - 5 Stop: 08/11/25 05:38 Last Admin: 08/11/24 06:59 Dose: 650 mg Albuterol (Albuterol Neb 2.5 Mg/3 Ml Vial.Neb) 2.5 mg INHALATION Q2H PRN PRN Reason: Shortness Of Breath Stop: 08/11/25 05:38 Amitriptyline HCl (Amitriptyline 25 Mg Tablet) 25 mg PO HS [facility] Stop: 08/11/25 21:59 Last Admin: 08/11/24 21:17 Dose: 25 mg Aspirin (Aspirin 81 Mg Tablet.) 81 mg PO DAILY [facility] Stop: 08/11/25 08:59 Last Admin: 08/12/24 08:27 Dose: 81 mg Atorvastatin Calcium (Atorvastatin 80 Mg Tablet) 80 mg PO DAILY [facility] Stop: 08/11/25 08:59 Last Admin: 08/12/24 08:27 Dose: 80 mg Budesonide/Formoterol Fumarate (Budesonide/Formoterol 160-4.5 Mcg 60 Puff/6 Gm Hfa.Aer.Ad) 2 puff INHALATION BID [facility] Stop: 08/11/25 08:59 Last Admin: 08/12/24 08:52 Dose: 2 puff Calcium Carbonate (Calcium Carbonate/Vitamin D3 500 Mg/200 Unit Tablet) 2 tab PO TID.WITH.MEALS [facility] Stop: 08/11/25 07:59 Last Admin: 08/12/24 08:27 Dose: 2 tab Clopidogrel Bisulfate (Clopidogrel Bisulfate 75 Mg Tablet) 75 mg PO DAILY [facility] Stop: 08/11/25 08:59 Last Admin: 08/12/24 08:27 Dose: 75 mg Cyanocobalamin (Cyanocobalamin 1,000 Mcg/Ml Vial) 1,000 mcg IM DAILY [facility] Stop: 08/17/24 09:01 Last Admin: 08/12/24 08:27 Dose: 1,000 mcg Dextrose (Dextrose 50% In Water 25 Gm/50 Ml Syringe) 0 gm IV-PUSH PRN PRN PRN Reason: Hypoglycemia Stop: 08/11/25 05:38 Docusate Sodium (Docusate 100 Mg Capsule) 200 mg PO BID PRN PRN Reason: Constipation Stop: 08/11/25 05:38 Glucose (Dextrose 40% Gel 15 Gm Tube) 0 gm PO PRN PRN PRN Reason: Hypoglycemia Stop: 08/11/25 05:38 Heparin Sodium (Porcine) (Heparin 5,000 Unit/Ml Vial) 5,000 unit SUBCUT Q12HR [facility] Stop: 08/11/25 08:59 Last Admin: 08/12/24 08:27 Dose: 5,000 unit Hydralazine HCl (Hydralazine 20 Mg/Ml Vial) 10 mg IV-PUSH Q4H PRN PRN Reason: if SBP > 185 Stop: 08/11/25 05:38 Potassium Chloride/Sodium Chloride (0.9 % Nacl-20 Meq Kcl) 1,000 mls @ 125 mls/hr IV .Q8H [facility] Stop: 08/11/25 07:14 Last Admin: 08/12/24 08:26 Dose: 125 mls/hr Ferric Sodium Gluconate Complex 250 mg/ Sodium Chloride 270 mls @ 135 mls/hr IVQAM [facility] Stop: 08/14/24 10:59 Last Admin: 08/12/24 09:19 Dose: 135 mls/hr Insulin Aspart (Insulin Aspart 300 Units/3 Ml) 0 units SUBCUT TID.[facility]; Protocol Stop: 08/11/25 07:59 Last Admin: 08/12/24 08:27 Dose: Not Given Ipratropium [place] (Ipratropium [place] 0.5 Mg/2.5 Ml Vial.Neb) 0.5 mg INHALATION QID.RESP [facility] Stop: 08/11/25 07:59 Last Admin: 08/12/24 08:51 Dose: 0.5 mg Isosorbide Mononitrate (Isosorbide Mononitrate 24hr Er 30 Mg Tab.Er.24h) 30 mg PO DAILY [facility] Stop: 08/11/25 08:59 Last Admin: 08/12/24 08:27 Dose: 30 mg Metoprolol Tartrate (Metoprolol Tartrate 100 Mg Tablet) 100 mg PO BID [facility] Stop: 08/11/25 08:59 Last Admin: 08/12/24 08:27 Dose: 100 mg Pantoprazole Sodium (Pantoprazole 40 Mg Tablet.Dr) 40 mg PO BID [facility] Stop: 08/11/25 08:59 Last Admin: 08/12/24 08:27 Dose: 40 mg Pregabalin (Pregabalin 75 Mg Capsule) 75 mg PO TID [facility] Stop: 02/07/25 08:59 Last Admin: 08/12/24 08:27 Dose: 75 mg Ropinirole HCl (Ropinirole 1 Mg Tablet) 1 mg PO TID [facility] Stop: 08/11/25 08:59 Last Admin: 08/12/24 08:27 Dose: 1 mg Tamsulosin HCl (Tamsulosin 0.4 Mg Cap.Er.24h) 0.4 mg PO BID [facility] Stop: 08/11/25 08:59 Last Admin: 08/12/24 08:27 Dose: 0.4 mg Tizanidine HCl (Tizanidine 4 Mg Tablet) 4 mg PO QHS [facility] Stop: 08/11/25 21:59 Last Admin: 08/11/24 21:17 Dose: 4 mg Allergies Penicillins Allergy (Unknown, Verified 08/11/24 04:06) Anaphylaxis latex Allergy (Verified 08/11/24 04:06) Unknown Reaction Results - Nephrology Labs 08/12/24 05:01 08/12/24 05:01 Labs: 08/12/24 08/12/24 05:01 05:01 BUN 20 Creatinine 1.79 H D Albumin 3.5 Cancelled Radiology Impressions Impressions - last 24 hours: Any impression(s) listed above is documentation that was entered by the reading physician into a diagnostic report(s) for Myra Pickard SR. I have reviewed the report(s) and am incorporating any findings in the treatment plan of this patient where applicable. A&P - Nephrology Assessment/Plan (1) Acute kidney injury superimposed on CKD: Assessment/Problem Details: Patient has CKD stage IIIb from diabetic and hypertensive nephropathy. Baselinecreatinine fluctuate depending on the volume status and variation in blood pressure. Patient received IV contrast at admission for CTA of the head. Serumcreatinine at presentation 2.6 mg deciliter. Patient stated he has been making urine. (2) Hypomagnesemia: Assessment/Problem Details: Patient has been on PPI twice daily for GERD symptoms. He follows with Dr. Burleson in GI clinic. Magnesium level at presentation 0.5 mmol/L. Patient received 6 g of magnesium sulfate (3) Hypocalcemia: Assessment/Problem Details: This is likely from hypomagnesemia. Serum calcium level 6.1 on presentation. Patient received 1 g of calcium gluconate (4) Hypokalemia: Assessment/Problem Details: This is likely also from hypomagnesemia. Patient received 40 mill equivalent p.o. at admission and currently on IV KCl and normal saline (5) Iron deficiency: Assessment/Problem Details: Lab study revealed iron saturation only 7% with very low ferritin level. (6) Vitamin B12 deficiency: Assessment/Problem Details: Serum vitamin B12 level at admission 129. Patient currently on cyanocobalamin 10 mcg p.o. daily (7) BPH loc w urin obs/LUTS: Assessment/Problem Details: patient takes Flomax twice daily at home Plan * Continue holding home Jardiance, valsartan/hydrochlorothiazide and Lasix. * Stop IV fluid * Will give calcium gluconate 3 g IV x 1 dose. * Continue accurate urine output documentation * Continue to monitor electrolytes and replace as needed * Will start the patient on loading dose of Ferrlecit 250 mg X4 * Continue vitamin B12 supplement * Check CBC renal function panel in a.m. Documented By: Maurice Francis MD 08/12/24 1113 Signed By: <Electronically signed by Maurice Francis MD> 08/12/24 1149 [facility] Work Phone: [phone] [place] [address] Nephrology Progress Note Signed Patient: Myra Pickard MR#: [id number] : 1965 Acct:[id number] Age/Sex: 59 / M Adm Date: 5 Loc: 3T Room: [address] [place] [address] Type: ADM IN Attending Dr: Kevon Viera MD Copies to: ~ Date of Service: 08/12/2024 Subjective Subjective Narrative: This is a 59-year-old male patient with past med history of BPH, COPD, coronaryartery disease, CKD stage IIIb follows with me in renal office, GERD and A-fib, A-fib, diabetes, peripheral vascular disease. Patient presented to the hospitalfor sudden onset of tingling's and numbness all over his bodyalong with dizziness and lightheadedness. Patient had CT of the head in the emergency roomwhich wasnegative for acute process. Lab revealed creatinine up to 2.6 mg deciliter from baseline at around 2.2 mg deciliter last month. Magnesium is wasfound to be severely low at 0.5 mg deciliter, calcium 6.1, potassium 3.1. Patient was admitted and received 6 g of magnesium sulfate in addition to 1 g ofcalcium gluconate and 40 mill equivalents of oral potassium. Patient also started on IV fluid normal saline with 20 mill equivalent KCl at 125 cc/h. Patient also was found to have vitamin B12 deficiency and started on oral supplement. Patient also has iron deficiency with iron saturation 7% and ferritin 5.3. Hemoglobin 11.6 Renal team was consulted for acute kidney injury on chronic kidney disease. INTERIM HISTORY: Patient was seen and examined at bedside. He is feeling better today and continues to have a high urine output. Denies any chest pain palpation cough nausea vomit diarrhea and shortness of breath Exam Physical Exam Vital Signs: Temp Pulse Resp BP Pulse Ox O2 Del Method 97.8 F 66 18 119/73 96 Room Air 08/12/24 08:23 08/12/24 08:52 08/12/24 08:52 08/12/24 08:23 08/12/24 08:23 08/12/24 08:23 Narrative: General: Appears comfortable and not in distress Heart: S1-S2, no rub Lung: Bilateral air entry, no wheezing or crackles Abdomen: Soft, positive bowel sounds Extremities: No edema, no cyanosis Head: Atraumatic, normocephalic Ear: No gross hearing Deficit or external ear redness Eyes: No pallor or redness Neck: No JVD or visible mass Skin: No rashes , warm to touch 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: Awake,Alert, 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 Musculoskeletal: No swelling or limitation of movement of the large joints Psychiatric: Cooperative, normal mood and affect Objective Intake and Output I&O: Intake & Output 08/09/24 08/10/24 08/12/24 08/12/24 23:59 23:59 00:59 23:59 Intake Total 2760 / 2760 1480 / 1480 Output Total 2150 / 2150 800 / 800 Balance 610 / 610 680 / 680 Weight 91.3 kg 90 kg Meds and Allergies Meds: Active Medications Acetaminophen (Acetaminophen 325 Mg Tablet) 650 mg PO Q4H PRN PRN Reason: Pain Scale 1 - 5 Stop: 08/11/25 05:38 Last Admin: 08/11/24 06:59 Dose: 650 mg Albuterol (Albuterol Neb 2.5 Mg/3 Ml Vial.Neb) 2.5 mg INHALATION Q2H PRN PRN Reason: Shortness Of Breath Stop: 08/11/25 05:38 Amitriptyline HCl (Amitriptyline 25 Mg Tablet) 25 mg PO HS [facility] Stop: 08/11/25 21:59 Last Admin: 08/11/24 21:17 Dose: 25 mg Aspirin (Aspirin 81 Mg Tablet.Dr) 81 mg PO DAILY [facility] Stop: 08/11/25 08:59 Last Admin: 08/12/24 08:27 Dose: 81 mg Atorvastatin Calcium (Atorvastatin 80 Mg Tablet) 80 mg PO DAILY [facility] Stop: 08/11/25 08:59 Last Admin: 08/12/24 08:27 Dose: 80 mg Budesonide/Formoterol Fumarate (Budesonide/Formoterol 160-4.5 Mcg 60 Puff/6 Gm Hfa.Aer.Ad) 2 puff INHALATION BID [facility] Stop: 08/11/25 08:59 Last Admin: 08/12/24 08:52 Dose: 2 puff Calcium Carbonate (Calcium Carbonate/Vitamin D3 500 Mg/200 Unit Tablet) 2 tab PO TID.WITH.MEALS [facility] Stop: 08/11/25 07:59 Last Admin: 08/12/24 08:27 Dose: 2 tab Clopidogrel Bisulfate (Clopidogrel Bisulfate 75 Mg Tablet) 75 mg PO DAILY [facility] Stop: 08/11/25 08:59 Last Admin: 08/12/24 08:27 Dose: 75 mg Cyanocobalamin (Cyanocobalamin 1,000 Mcg/Ml Vial) 1,000 mcg IM DAILY [facility] Stop: 08/17/24 09:01 Last Admin: 08/12/24 08:27 Dose: 1,000 mcg Dextrose (Dextrose 50% In Water 25 Gm/50 Ml Syringe) 0 gm IV-PUSH PRN PRN PRN Reason: Hypoglycemia Stop: 08/11/25 05:38 Docusate Sodium (Docusate 100 Mg Capsule) 200 mg PO BID PRN PRN Reason: Constipation Stop: 08/11/25 05:38 Glucose (Dextrose 40% Gel 15 Gm Tube) 0 gm PO PRN PRN PRN Reason: Hypoglycemia Stop: 08/11/25 05:38 Heparin Sodium (Porcine) (Heparin 5,000 Unit/Ml Vial) 5,000 unit SUBCUT Q12HR [facility] Stop: 08/11/25 08:59 Last Admin: 08/12/24 08:27 Dose: 5,000 unit Hydralazine HCl (Hydralazine 20 Mg/Ml Vial) 10 mg IV-PUSH Q4H PRN PRN Reason: if SBP > 185 Stop: 08/11/25 05:38 Potassium Chloride/Sodium Chloride (0.9 % Nacl-20 Meq Kcl) 1,000 mls @ 125 mls/hr IV .Q8H [facility] Stop: 08/11/25 07:14 Last Admin: 08/12/24 08:26 Dose: 125 mls/hr Ferric Sodium Gluconate Complex 250 mg/ Sodium Chloride 270 mls @ 135 mls/hr IVQAM [facility] Stop: 08/14/24 10:59 Last Admin: 08/12/24 09:19 Dose: 135 mls/hr Insulin Aspart (Insulin Aspart 300 Units/3 Ml) 0 units SUBCUT TID.WM.HS [facility]; Protocol Stop: 08/11/25 07:59 Last Admin: 08/12/24 08:27 Dose: Not Given Ipratropium [place] (Ipratropium [place] 0.5 Mg/2.5 Ml Vial.Neb) 0.5 mg INHALATION QID.RESP [facility] Stop: 08/11/25 07:59 Last Admin: 08/12/24 08:51 Dose: 0.5 mg Isosorbide Mononitrate (Isosorbide Mononitrate 24hr Er 30 Mg Tab.Er.24h) 30 mg PO DAILY [facility] Stop: 08/11/25 08:59 Last Admin: 08/12/24 08:27 Dose: 30 mg Metoprolol Tartrate (Metoprolol Tartrate 100 Mg Tablet) 100 mg PO BID [facility] Stop: 08/11/25 08:59 Last Admin: 08/12/24 08:27 Dose: 100 mg Pantoprazole Sodium (Pantoprazole 40 Mg Tablet.Dr) 40 mg PO BID [facility] Stop: 08/11/25 08:59 Last Admin: 08/12/24 08:27 Dose: 40 mg Pregabalin (Pregabalin 75 Mg Capsule) 75 mg PO TID [facility] Stop: 02/07/25 08:59 Last Admin: 08/12/24 08:27 Dose: 75 mg Ropinirole HCl (Ropinirole 1 Mg Tablet) 1 mg PO TID [facility] Stop: 08/11/25 08:59 Last Admin: 08/12/24 08:27 Dose: 1 mg Tamsulosin HCl (Tamsulosin 0.4 Mg Cap.Er.24h) 0.4 mg PO BID [facility] Stop: 08/11/25 08:59 Last Admin: 08/12/24 08:27 Dose: 0.4 mg Tizanidine HCl (Tizanidine 4 Mg Tablet) 4 mg PO QHS [facility] Stop: 08/11/25 21:59 Last Admin: 08/11/24 21:17 Dose: 4 mg Allergies Penicillins Allergy (Unknown, Verified 08/11/24 04:06) Anaphylaxis latex Allergy (Verified 08/11/24 04:06) Unknown Reaction Results - Nephrology Labs 08/12/24 05:01 08/12/24 05:01 Labs: 08/12/24 08/12/24 05:01 05:01 BUN 20 Creatinine 1.79 H D Albumin 3.5 Cancelled Radiology Impressions Impressions - last 24 hours: Any impression(s) listed above is documentation that was entered by the reading physician into a diagnostic report(s) for Myra Pickard SR. I have reviewed the report(s) and am incorporating any findings in the treatment plan of this patient where applicable. A&P - Nephrology Assessment/Plan (1) Acute kidney injury superimposed on CKD: Assessment/Problem Details: Patient has CKD stage IIIb from diabetic and hypertensive nephropathy. Baselinecreatinine fluctuatedepending on the volume status and variation in blood pressure. Patient received IV contrast at admission for CTA of the head. Serumcreatinine at presentation 2.6 mg deciliter. Patient stated he has been making urine. (2) Hypomagnesemia: Assessment/Problem Details: Patient has been on PPI twice daily for GERD symptoms. He follows with Dr. Burleson in GI clinic. Magnesium level at presentation 0.5 mmol/L. Patient received 6 g of magnesium sulfate (3) Hypocalcemia: Assessment/Problem Details: This is likely from hypomagnesemia. Serum calcium level 6.1 on presentation. Patient received 1 g of calcium gluconate (4) Hypokalemia: Assessment/Problem Details: This is likely also from hypomagnesemia. Patient received 40 mill equivalent p.o. at admission and currently on IV KCl and normal saline (5) Iron deficiency: Assessment/Problem Details: Lab study revealed iron saturation only 7% with very low ferritin level. (6) Vitamin B12 deficiency: Assessment/Problem Details: Serum vitamin B12 level at admission 129. Patient currently on cyanocobalamin 10 mcg p.o. daily (7) BPH loc w urin obs/LUTS: Assessment/Problem Details: patient takes Flomax twice daily at home Plan * Continue holding home Jardiance, valsartan/hydrochlorothiazide and Lasix. * Stop IV fluid * Will give calcium gluconate 3 g IV x 1 dose. * Continue accurate urine output documentation * Continue to monitor electrolytes and replace as needed * Will start the patient on loading dose of Ferrlecit 250 mg X4 * Continue vitamin B12 supplement * Check CBC renal function panel in a.m. Documented By: Maurice Francis MD 08/12/241114 Signed By: 08/12/24 1147 [facility]03-09-2025 Consult note Author Amina Fagan [facility] Note Date/Time August 11, 2024 2:18 pm [facility] [address] [place] [address] Nephrology Consult Note Signed Patient: Myra Pickard SR MR#: [id number] : 1965 Acct:[id number] Age/Sex: 59 / M Adm Date: 5 Loc: Room: [address] [place] [address] Type: ADM IN Attending Dr: Kevon Viera MD Copies to: MD Teresa Stewart DO Obaydah M Daromar, MD~ Providers Consult Date: 08/11/24 Requesting Provider: Kevon Viera MD Primary Care Provider: Teresa Lynch DO HPI Reason for Consult: Acute kidney injury on chronic kidney disease with electrolytes imbalance History of Present Illness: This is a 59-year-old male patient with past med history of BPH, COPD, coronaryartery disease, CKD stage IIIb follows with me in renal office, GERD and A-fib, A-fib, diabetes, peripheral vascular disease. Patient presented to the hospitalfor sudden onset of tingling's and numbness all over his body along with dizziness and lightheadedness. Patient had CT of the head in the emergency roomwhich was negative for acute process. Lab revealed creatinine up to 2.6 mg deciliter from baseline at around 2.2 mg deciliter last month. Magnesium is wasfound to be severely low at 0.5 mg deciliter, calcium 6.1, potassium 3.1. Patient was admitted and received 6 g of magnesium sulfate in addition to 1 g ofcalcium gluconate and 40 mill equivalents of oral potassium. Patient also started on IV fluid normal saline with 20 mill equivalent KCl at 125 cc/h. Patient also was found to have vitamin B12 deficiency and started on oral supplement. Patient also has iron deficiency with iron saturation 7% and ferritin 5.3. Hemoglobin 11.6 Renal team was consulted for acute kidney injury on chronic kidney disease. I reviewed the patient's home medications. He is on albuterol, Plavix, tamsulosin, insulin, metformin, magnesium, Trulicity, Jardiance, Januvia, glimepiride, pregabalin, doxycycline, Lasix, isosorbide mononitrate, metoprolol,valsartan/hydrochlorothiazide Patient denied urinary obstructive symptoms. No NSAID use Review of Systems Review of Systems Review of systems: I reviewed 12 system review is negative today [facility] Medical History Chronic obstructive pulmonary disease, unspecified Hyperbilirubinemia Hypothermia Vitamin D deficiency 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 Restless legs syndrome Peripheral vascular disease Peripheral edema Lung nodule Insulin long-term use Insomnia Hypotestosteronemia Hypertensive chronic kidney disease with stage 1 through stage 4 chronic kidney disease, or unspecified chronic kidney disease Gout GERD (gastroesophageal reflux disease) Erectile dysfunction Contracture of hand Claudication of both lower extremities Cigarette nicotine dependence with nicotine-induced disorder Bladder mass Atrial fibrillation Atherosclerotic heart disease of [place] coronary artery with unspecified angina pectoris Anxiety Hx of exercise stress test Family history of premature CAD Reports mother had quadruple bypass at age of 45 Myocardial infarction mild Fibromyalgia Chronic back pain Sleep apnea Neuropathy Cataract Peripheral artery disease Hyperlipidemia Diabetes Hypertension Surgical History History of below-knee amputation of right lower extremity 02/2024 [facility] by Dr. Simon Hernández Vascular History of artificial lens replacement Hx of [...] Tobacco Type: cigarettes Substance Use Type: None Substance Abuse Comment: etoh occasionally Social History Comments: mobile home Meds Medications & Allergies Allergies Penicillins Allergy (Unknown, Verified 08/11/24 04:06) Anaphylaxis latex Allergy (Verified 08/11/24 04:06) Unknown Reaction Home Medications albuterol sulfate 90 mcg/actuation aerosol inhaler (ProAir HFA) 2 puff inhalation Q6HR PRN Shortness Of Breath 06/28/19 [History Confirmed 08/11/24] nitroglycerin 0.4 mg sublingual tablet (Nitrostat) 0.4 mg sublingual Q5-15M PRN chest pain 07/12/23 [History Confirmed 08/11/24] flash glucose scanning reader (UlmonStyle Jigar 2 Ensign) #1 ea 12/28/23 [Rx Confirmed 08/11/24] flash glucose sensor (FreeStyle Jigar 2 Sensor kit) #1 ea 12/28/23 [Rx Confirmed 08/11/24] tiotropium bromide 18 mcg capsule with inhalation device (Spiriva with HandiHaler) 1 cap inhalation DAILY 03/03/24 [History Confirmed 08/11/24] clopidogrel 75 mg tablet 75 mg PO DAILY 03/08/24 [History Confirmed 08/11/24] tamsulosin 0.4 mg capsule (Flomax) 0.4 mg PO BID 03/08/24 [History Confirmed 08/11/24] insulin syringe,safety needle 1 mL 30 gauge x 1/2 #100 ea 03/29/24 [Rx Confirmed 08/11/24] aspirin 81 mg tablet,delayed release 81 mg PO DAILY 04/05/24 [History Confirmed 08/11/24] budesonide-formoterol HFA 160 mcg-4.5 mcg/actuation aerosol inhaler 2 puff inhalation BID 04/05/24 [History Confirmed 08/11/24] metformin 1,000 mg tablet 1,000 mg PO BID 04/05/24 [History Confirmed 08/11/24] sildenafil 100 mg tablet 100 mg PO DAILY PRN sexual activity #30 tabs 04/05/24 [Rx Confirmed 08/11/24] pen needle, diabetic 32 gauge x 5/32 (Comfort EZ Pen Chadron) #100 ea 04/15/24 [Rx Confirmed 08/11/24] hydroxyzine HCl 25 mg tablet 25 mg PO QHS #90 tabs 05/06/24 [Rx Confirmed 05/07/24] amitriptyline 25 mg tablet 25 mg PO DAILY 05/07/24 [History Confirmed 08/11/24] fremanezumab-vfrm 225 mg/1.5 mL subcutaneous auto-injector (Ajovy) 225 mg subcutQMONTH 05/07/24 [History Confirmed 08/11/24] magnesium oxide 400 mg PO DAILY #90 tabs 05/07/24 [Rx Confirmed 05/07/24] rimegepant 75 mg disintegrating tablet (Nurtec ODT) 75 mg PO Q48HR 05/07/24 [History Confirmed 08/11/24] dulaglutide 0.75 mg/0.5 mL subcutaneous pen injector (Trulicity) 0.75 mg (0.5 mL) subcut QWEEK #2 mL 06/25/24 [Rx Confirmed 08/11/24] empagliflozin 10 mg tablet (Jardiance) 10 mg PO DAILY #90 tabs 06/25/24 [Rx Confirmed 08/11/24] omeprazole 40 mg capsule,delayed release 40 mg PO DAILY #90 caps 06/25/24 [Rx Confirmed 08/11/24] sitagliptin phosphate 100 mg tablet (Januvia) 100 mg PO DAILY #90 tabs 06/25/24 [Rx Confirmed 08/11/24] atorvastatin 80 mg tablet 80 mg PO DAILY #90 tabs 06/27/24 [Rx Confirmed 08/11/24] clonazepam 0.5 mg tablet (Klonopin) 0.5 mg PO .every morning 30 days #30 tabs 06/27/24 [Rx] glimepiride 2 mg tablet 2 mg PO BID #180 tabs 06/27/24 [Rx Confirmed 08/11/24] pregabalin 200 mg capsule 200 mg PO TID 90 days #270 caps 06/27/24 [Rx Confirmed 08/11/24] hydrocodone 5 mg-acetaminophen 325 mg tablet 1 tab PO Q4-6H PRN pain 2 days #6 tabs 07/16/24 [Rx] doxycycline hyclate 100 mg capsule 100 mg PO BID 08/11/24 [History Confirmed 08/11/24] furosemide 40 mg tablet (Lasix) 40 mg PO DAILY 08/11/24 [History Confirmed 08/11/24] isosorbide mononitrate 30 mg tablet,extended release 24 hr 30 mg PO DAILY 08/11/24 [History Confirmed 08/11/24] metoprolol tartrate 25 mg tablet 100 mg PO BID 08/11/24 [History Confirmed 08/11/24] ropinirole 0.5 mg tablet 1 mg PO TID 08/11/24 [History Confirmed 08/11/24] tizanidine 4 mg tablet 4 mg PO QHS 08/11/24 [History Confirmed 08/11/24] valsartan 160 mg-hydrochlorothiazide 12.5 mg tablet (Diovan HCT) 1 tab PO DAILY 08/11/24 [History Confirmed 08/11/24] Active Medications: Active Medications Acetaminophen (Acetaminophen 325 Mg Tablet) 650 mg PO Q4H PRN PRN Reason: Pain Scale 1 - 5 Stop: 08/11/25 05:38 Last Admin: 08/11/24 06:59 Dose: 650 mg Albuterol (Albuterol Neb 2.5 Mg/3 Ml Vial.Neb) 2.5 mg INHALATION Q2H PRN PRN Reason: Shortness Of Breath Stop: 08/11/25 05:38 Amitriptyline HCl (Amitriptyline 25 Mg Tablet) 25 mg PO HS [facility] Stop: 08/11/25 21:59 Aspirin (Aspirin 81 Mg Tablet.) 81 mg PO DAILY [facility] Stop: 08/11/25 08:59 Last Admin: 08/11/24 09:13 Dose: 81 mg Atorvastatin Calcium (Atorvastatin 80 Mg Tablet) 80 mg PO DAILY [facility] Stop: 08/11/25 08:59 Last Admin: 08/11/24 09:14 Dose: 80 mg Budesonide/Formoterol Fumarate (Budesonide/Formoterol 160-4.5 Mcg 60 Puff/6 Gm Hfa.Aer.Ad) 2 puff INHALATION BID [facility] Stop: 08/11/25 08:59 Last Admin: 08/11/24 09:41 Dose: 2 puff Calcium Carbonate (Calcium Carbonate/Vitamin D3 500 Mg/200 Unit Tablet) 2 tab PO TID.WITH.MEALS [facility] Stop: 08/11/25 07:59 Last Admin: 08/11/24 13:40 Dose: 2 tab Clopidogrel Bisulfate (Clopidogrel Bisulfate 75 Mg Tablet) 75 mg PO DAILY [facility] Stop: 08/11/25 08:59 Last Admin: 08/11/24 09:14 Dose: 75 mg Cyanocobalamin (Cyanocobalamin 1,000 Mcg/Ml Vial) 1,000 mcg IM DAILY [facility] Stop: 08/17/24 09:01 Last Admin: 08/11/24 09:14 Dose: 1,000 mcg Dextrose (Dextrose 50% In Water 25 Gm/50 Ml Syringe) 0 gm IV-PUSH PRN PRN PRN Reason: Hypoglycemia Stop: 08/11/25 05:38 Docusate Sodium (Docusate 100 Mg Capsule) 200 mg PO BID PRN PRN Reason: Constipation Stop: 08/11/25 05:38 Glucose (Dextrose 40% Gel 15 Gm Tube) 0 gm PO PRN PRN PRN Reason: Hypoglycemia Stop: 08/11/25 05:38 Heparin Sodium (Porcine) (Heparin 5,000 Unit/Ml Vial) 5,000 unit SUBCUT Q12HR [facility] Stop: 08/11/25 08:59 Last Admin: 08/11/24 09:14 Dose: 5,000 unit Hydralazine HCl (Hydralazine 20 Mg/Ml Vial) 10 mg IV-PUSH Q4H PRN PRN Reason: if SBP > 185 Stop: 08/11/25 05:38 Magnesium Sulfate (Magnesium Sulf 4 Gm-*Swfi*) 4 gm in 100 mls @ 12.5 mls/hr IVONCE ONE Stop: 08/11/24 16:39 Last Admin: 08/11/24 09:14 Dose: 12.5 mls/hr Potassium Chloride/Sodium Chloride (0.9 % Nacl-20 Meq Kcl) 1,000 mls @ 125 mls/hr IV .Q8H [facility] Stop: 08/11/25 07:14 Last Admin: 08/11/24 11:51 Dose: 125 mls/hr Insulin Aspart (Insulin Aspart 300 Units/3 Ml) 0 units SUBCUT TID.WM.HS [facility]; Protocol Stop: 08/11/25 07:59 Last Admin: 08/11/24 13:40 Dose: Not Given Ipratropium [place] (Ipratropium [place] 0.5 Mg/2.5 Ml Vial.Neb) 0.5 mg INHALATION QID.RESP [facility] Stop: 08/11/25 07:59 Last Admin: 08/11/24 13:00 Dose: 0.5 mg Isosorbide Mononitrate (Isosorbide Mononitrate 24hr Er 30 Mg Tab.Er.24h) 30 mg PO DAILY [facility] Stop: 08/11/25 08:59 Last Admin: 08/11/24 09:13 Dose: 30 mg Metoprolol Tartrate (Metoprolol Tartrate 100 Mg Tablet) 100 mg PO BID [facility] Stop: 08/11/25 08:59 Last Admin: 08/11/24 09:13 Dose: 100 mg Pantoprazole Sodium (Pantoprazole 40 Mg Tablet.Dr) 40 mg PO BID [facility] Stop: 08/11/25 08:59 Last Admin: 08/11/24 09:13 Dose: 40 mg Pregabalin (Pregabalin 75 Mg Capsule) 75 mg PO TID [facility] Stop: 02/07/25 08:59 Last Admin: 08/11/24 13:40 Dose: 75 mg Ropinirole HCl (Ropinirole 1 Mg Tablet) 1 mg PO TID [facility] Stop: 08/11/25 08:59 Last Admin: 08/11/24 13:40 Dose: 1 mg Tamsulosin HCl (Tamsulosin 0.4 Mg Cap.Er.24h) 0.4 mg PO BID [facility] Stop: 08/11/25 08:59 Last Admin: 08/11/24 09:13 Dose: 0.4 mg Tizanidine HCl (Tizanidine 4 Mg Tablet) 4 mg PO QHS [facility] Stop: 08/11/25 21:59 Exam Physical Exam Vital Signs: Temp Pulse Resp BP Pulse Ox O2 Del Method 98.0 F 67 18 100/65 98 Room Air 08/11/24 08:52 08/11/24 13:38 08/11/24 13:38 08/11/24 13:38 08/11/24 13:38 08/11/24 13:38 Results - Nephrology Labs 08/11/24 04:15 08/11/24 04:15 Labs: 08/11/24 08/11/24 04:15 08:30 BUN 26 H Creatinine 2.62 H Phosphorus 4.8 H Iron Saturation 7.0 L Ferritin 5.3 L Albumin 4.2 25-OH Vitamin D Total 15.0 L PTH Intact 38.3 Urine Color Light-yellow Urine Appearance Clear Urine pH 5.5 Ur Specific [place] 1.024 Urine Protein Negative Urine Glucose (UA) 500 H Urine Ketones Negative Urine Occult Blood Negative Urine Nitrite Negative Ur Leukocyte Esterase Negative Radiology Impressions Impressions - last 24 hours: Impressions Chest X-Ray 08/11/24 04:22 IMPRESSION: No acute process. Impression dictated by: Sudeep Lind M.D.08/11/2024 10:06 AM Dictation Location: [place] [address] 08/11/24 04:22 IMPRESSION: No acute findings. Preliminary 5:00 AM 08/11/2024 CTA Head and Neck TECHNIQUE: Axial imaging of the head and neck with 2-D and 3-D reconstruction. 90cc of Isovue-370. The CT exam was performed using one or more the following dose reduction techniques: Automated exposure control, adjustment of the MA and/or Kv according to patient size, or use of the iterative reconstruction technique. Stenoses were measured using the NASCET criteria. COMPARISON: 03/08/2024 HISTORY: Left-sided weakness and numbness The visualized aortic arch and great vessels are unremarkable. Subclavian arteries are patent No carotid dissection, critical stenosis or occlusion identified. No vertebral dissection, occlusion or abrupt cut off identified. The carotid siphons and vertebral basilar systems are patent. Atherosclerosis of the carotid siphons without significant stenosis No intracranial aneurysm, dissection, abrupt cut off or critical stenosis identified.. . IMPRESSION: No occlusion, critical stenosis or dissection of the extracranial orintracranial circulation. Impression dictated by: Sudeep Lind M.D.08/11/2024 10:06 AM Dictation Location: [place] [address] Any impression(s) listed above is documentation that was entered by the reading physician into a diagnostic report(s) for Myra Pickard SR. I have reviewed the report(s) and am incorporating any findings in the treatment plan of this patient where applicable. A&P - Nephrology Assessment/Plan (1) Acute kidney injury superimposed on CKD: Assessment/Problem Details: Patient has CKD stage IIIb from diabetic and hypertensive nephropathy. Baselinecreatinine fluctuate depending on the volume status and variation in blood pressure. Patient received IV contrast at admission for CTA of the head. Serumcreatinine at presentation 2.6 mg deciliter. Patient stated he has been making urine. (2) Hypomagnesemia: Assessment/Problem Details: Patient has been on PPI twice daily for GERD symptoms. He follows with Dr. Burleson in GI clinic. Magnesium level at presentation 0.5 mmol/L. Patient received 6 g of magnesium sulfate (3) Hypocalcemia: Assessment/Problem Details: This is likely from hypomagnesemia. Serum calcium level 6.1 on presentation. Patient received 1 g of calcium gluconate (4) Hypokalemia: Assessment/Problem Details: This is likely also from hypomagnesemia. Patient received 40 mill equivalent p.o. at admission and currently on IV KCl and normal saline (5) Iron deficiency: Assessment/Problem Details: Lab study revealed iron saturation only 7% with very low ferritin level. (6) Vitamin B12 deficiency: Assessment/Problem Details: Serum vitamin B12 level at admission 129. Patient currently on cyanocobalamin 10 mcg p.o. daily (7) BPH loc w urin obs/LUTS: Assessment/Problem Details: patient takes Flomax twice daily at home Plan * There is no indication for renal placement therapy. * Patient at risk for worsening kidney function from IV IV contrast exposure at admission * Continue holding home Jardiance, valsartan/hydrochlorothiazide and Lasix. * Agree with IV fluid normal saline * Continue accurate urine output documentation * Continue to monitor electrolytes and replace as needed * Will start the patient on loading dose of Ferrlecit 250 mg X4 * Continue vitamin B12 supplement * Check CBC renal function panel in a.m. Thank you for allowing me to participate in Mr. Pickard's care. Renal team will continue to follow. Call if any question or concern Documented By: Amina Fagan MD 08/11/24 0399 Signed By: <Electronically signed by Amina Fagan MD> 08/11/24 1414 [facility] Work Phone: 1(630) 321-768603-09-2025 Progress note Author Kevon Viera [facility] Note Date/Time August 11, 2024 1:21 pm [facility] [address] [place], [place] [id number] Progress Note Signed Patient: Myra Pickard SR MR#: [id number] : 1965 Acct:[id number] Age/Sex: 59 / M Adm Date: 5 Loc: 3T Room: [address] [place] [address] Type: ADM IN Attending Dr: Kevon Viera MD Copies to: ~ Date of Service: 08/11/2024 Progress Narrative Note PROGRESS NOTE Progress Note: Patient was seen and evaluated at bedside. He was admitted overnight by overnight hospitalist, refer to H&P for further details, continue current management with IV fluids and replacing electrolytes as needed, nephrology has been consulted, input appreciated, patient clinically feeling better today, discussed with patient, all question answered. Documented By: Kevon Viera MD 08/11/24 13 20 Signed By: <Electronically signed by Kevon Viera MD> 08/11/24 [facility] Work Phone: [phone]) 497-136003-09-2025 [place] [address] Nephrology Consult Note Signed Patient: Myra Pickard SR MR#: [id number] : 1965 Acct:[id number] Age/Sex: 59 / M Adm Date: 5 Loc: 3T Room: [address] [place] [address] Type: ADM IN Attending Dr: Kevon Viera MD Copies to: MD Teresa Stewart DO Obaydah M Daromar, MD~ Providers Consult Date: 08/11/24 Requesting Provider: Kevon Viera MD Primary Care Provider: Teresa Lynch DO HPI Reason for Consult: Acute kidney injury on chronic kidney disease with electrolytes imbalance History of Present Illness: This is a 59-year-old male patient with past med history of BPH, COPD, coronaryartery disease, CKD stage IIIb follows with me in renal office, GERD and A-fib, A-fib, diabetes, peripheral vascular disease. Patient presented to the hospitalfor sudden onset of tingling's and numbness all over his bodyalong with dizziness and lightheadedness. Patient had CT of the head in the emergency roomwhich wasnegative for acute process. Lab revealed creatinine up to 2.6 mg deciliter from baseline at around 2.2 mg deciliter last month. Magnesium is wasfound to be severely low at 0.5 mg deciliter, calcium 6.1, potassium 3.1. Patient was admitted and received 6 g of magnesium sulfate in addition to 1 g ofcalcium gluconate and 40 mill equivalents of oral potassium. Patient also started on IV fluid normal saline with 20 mill equivalent KCl at 125 cc/h. Patient also was found to have vitamin B12 deficiency and started on oral supplement. Patient also has iron deficiency with iron saturation 7% and ferritin 5.3. Hemoglobin 11.6 Renal team was consulted for acute kidney injury on chronic kidney disease. I reviewed the patient's home medications. He is on albuterol, Plavix, tamsulosin, insulin, metformin, magnesium, Trulicity, Jardiance, Januvia, glimepiride, pregabalin, doxycycline, Lasix, isosorbide mononitrate, metoprolol,valsartan/hydrochlorothiazide Patient denied urinary obstructive symptoms. No NSAID use Review of Systems Review of Systems Review of systems: I reviewed 12 system review is negative today [facility] Medical History Chronic obstructive pulmonary disease, unspecified Hyperbilirubinemia Hypothermia Vitamin D deficiency 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 Restless legs syndrome Peripheral vascular disease Peripheral edema Lung nodule Insulin long-term use Insomnia Hypotestosteronemia Hypertensive chronic kidney disease with stage 1 through stage 4 chronic kidney disease, or unspecified chronic kidney disease Gout GERD (gastroesophageal reflux disease) Erectile dysfunction Contracture of hand Claudication of both lower extremities Cigarette nicotine dependence with nicotine-induced disorder Bladder mass Atrial fibrillation Atherosclerotic heart disease of [place] coronary artery with unspecified angina pectoris Anxiety Hx of exercise stress test Family history of premature CAD Reports mother had quadruple bypass at age of 45 Myocardial infarction mild Fibromyalgia Chronic back pain Sleep apnea Neuropathy Cataract Peripheral artery disease Hyperlipidemia Diabetes Hypertension Surgical History History of below-knee amputation of right lower extremity 02/2024 [facility] by Dr. Simon Hernández Vascular History of artificial lens replacement Hx of [...] Tobacco Type: cigarettes Substance Use Type: None Substance Abuse Comment: etoh occasionally Social History Comments: mobile home Meds Medications & Allergies Allergies Penicillins Allergy (Unknown, Verified 08/11/24 04:06) Anaphylaxis latex Allergy (Verified 08/11/24 04:06) Unknown Reaction Home Medications albuterol sulfate 90 mcg/actuation aerosol inhaler (ProAir HFA) 2 puff inhalation Q6HR PRN Shortness Of Breath 06/28/19 [History Confirmed 08/11/24] nitroglycerin 0.4 mg sublingual tablet (Nitrostat) 0.4 mg sublingual Q5-15M PRN chest pain 07/12/23[History Confirmed 08/11/24] flash glucose scanning reader (UlmonStyle Jigar 2 Ensign) #1 ea 12/28/23 [Rx Confirmed 08/11/24] flash glucose sensor (FreeStyle Jigar 2 Sensor kit) #1 ea 12/28/23 [Rx Confirmed 08/11/24] tiotropium bromide 18 mcg capsule with inhalation device (Spiriva with HandiHaler) 1 cap inhalationDAILY 03/03/24 [History Confirmed 08/11/24] clopidogrel 75 mg tablet 75 mg PO DAILY 03/08/24 [History Confirmed 08/11/24] tamsulosin 0.4 mg capsule (Flomax) 0.4 mg PO BID 03/08/24 [History Confirmed 08/11/24] insulin syringe,safety needle 1 mL 30 gauge x 1/2 #100 ea 03/29/24 [Rx Confirmed 08/11/24] aspirin 81 mg tablet,delayed release 81 mg PO DAILY 04/05/24 [History Confirmed 08/11/24] budesonide-formoterol HFA 160 mcg-4.5 mcg/actuation aerosol inhaler 2 puff inhalation BID 04/05/24 [History Confirmed 08/11/24] metformin 1,000 mg tablet 1,000 mg PO BID 04/05/24 [History Confirmed 08/11/24] sildenafil 100 mg tablet 100 mg PO DAILY PRN sexual activity #30 tabs 04/05/24 [Rx Confirmed 08/11/24] pen needle, diabetic 32 gauge x 5/32 (Comfort EZ Pen Chadron) #100 ea 04/15/24 [Rx Confirmed 08/11/24] hydroxyzine HCl 25 mg tablet 25 mg PO QHS #90 tabs 05/06/24 [Rx Confirmed 05/07/24] amitriptyline 25 mg tablet 25 mg PO DAILY 05/07/24 [History Confirmed 08/11/24] fremanezumab-vfrm 225 mg/1.5 mL subcutaneous auto-injector (Ajovy) 225 mg subcutQMONTH 05/07/24 [History Confirmed 08/11/24] magnesium oxide 400 mg PO DAILY #90 tabs 05/07/24 [Rx Confirmed 05/07/24] rimegepant 75 mg disintegrating tablet (Nurtec ODT) 75 mg PO Q48HR 05/07/24 [History Confirmed 08/11/24] dulaglutide 0.75 mg/0.5 mL subcutaneous pen injector (Trulicity) 0.75 mg (0.5 mL) subcut QWEEK #2 mL 06/25/24 [Rx Confirmed 08/11/24] empagliflozin 10 mg tablet (Jardiance) 10 mg PO DAILY #90 tabs 06/25/24 [Rx Confirmed 08/11/24] omeprazole 40 mg capsule,delayed release 40 mg PO DAILY #90 caps 06/25/24 [Rx Confirmed 08/11/24] sitagliptin phosphate 100 mg tablet (Januvia) 100 mg PO DAILY #90 tabs 06/25/24 [Rx Confirmed 08/11/24] atorvastatin 80 mg tablet 80 mg PO DAILY #90 tabs 06/27/24 [Rx Confirmed 08/11/24] clonazepam 0.5 mg tablet (Klonopin) 0.5 mg PO .every morning 30 days #30 tabs 06/27/24 [Rx] glimepiride 2 mg tablet 2 mg PO BID #180 tabs 06/27/24 [Rx Confirmed 08/11/24] pregabalin 200 mg capsule 200 mg PO TID 90 days #270 caps 06/27/24 [Rx Confirmed 08/11/24] hydrocodone 5 mg-acetaminophen 325 mg tablet 1 tab PO Q4-6H PRN pain 2 days #6 tabs 07/16/24 [Rx] doxycycline hyclate 100 mg capsule 100 mg PO BID 08/11/24 [History Confirmed 08/11/24] furosemide 40 mg tablet (Lasix) 40 mg PO DAILY 08/11/24 [History Confirmed 08/11/24] isosorbide mononitrate 30 mg tablet,extended release 24 hr 30 mg PO DAILY 08/11/24 [History Confirmed 08/11/24] metoprolol tartrate 25 mg tablet 100 mg PO BID 08/11/24 [History Confirmed 08/11/24] ropinirole 0.5 mg tablet 1 mg PO TID 08/11/24 [History Confirmed 08/11/24] tizanidine 4 mg tablet 4 mg PO QHS 08/11/24 [History Confirmed 08/11/24] valsartan 160 mg-hydrochlorothiazide 12.5 mg tablet (Diovan HCT) 1 tab PO DAILY 08/11/24 [History Confirmed 08/11/24] Active Medications: Active Medications Acetaminophen (Acetaminophen 325 Mg Tablet) 650 mg PO Q4H PRN PRN Reason: Pain Scale 1 - 5 Stop: 08/11/25 05:38 Last Admin: 08/11/24 06:59 Dose: 650 mg Albuterol (Albuterol Neb 2.5 Mg/3 Ml Vial.Neb) 2.5 mg INHALATION Q2H PRN PRN Reason: Shortness Of Breath Stop: 08/11/25 05:38 Amitriptyline HCl (Amitriptyline 25 Mg Tablet) 25 mg PO HS [facility] Stop: 08/11/25 21:59 Aspirin (Aspirin 81 Mg Tablet.) 81 mg PO DAILY [facility] Stop: 08/11/25 08:59 Last Admin: 08/11/24 09:13 Dose: 81 mg Atorvastatin Calcium (Atorvastatin 80 Mg Tablet) 80 mg PO DAILY [facility] Stop: 08/11/25 08:59 Last Admin: 08/11/24 09:14 Dose: 80 mg Budesonide/Formoterol Fumarate (Budesonide/Formoterol 160-4.5 Mcg 60 Puff/6 Gm Hfa.Aer.Ad) 2 puff INHALATION BID [facility] Stop: 08/11/25 08:59 Last Admin: 08/11/24 09:41 Dose: 2 puff Calcium Carbonate (Calcium Carbonate/Vitamin D3 500 Mg/200 Unit Tablet) 2 tab PO TID.WITH.MEALS [facility] Stop: 08/11/25 07:59 Last Admin: 08/11/24 13:40 Dose: 2 tab Clopidogrel Bisulfate (Clopidogrel Bisulfate 75 Mg Tablet) 75 mg PO DAILY [facility] Stop: 08/11/25 08:59 Last Admin: 08/11/24 09:14 Dose: 75 mg Cyanocobalamin (Cyanocobalamin 1,000 Mcg/Ml Vial) 1,000 mcg IM DAILY [facility] Stop: 08/17/24 09:01 Last Admin: 08/11/24 09:14 Dose: 1,000 mcg Dextrose (Dextrose 50% In Water 25 Gm/50 Ml Syringe) 0 gm IV-PUSH PRN PRN PRN Reason: Hypoglycemia Stop: 08/11/25 05:38 Docusate Sodium (Docusate 100 Mg Capsule) 200 mg PO BID PRN PRN Reason: Constipation Stop: 08/11/25 05:38 Glucose (Dextrose 40% Gel 15 Gm Tube) 0 gm PO PRN PRN PRN Reason: Hypoglycemia Stop: 08/11/25 05:38 Heparin Sodium (Porcine) (Heparin 5,000 Unit/Ml Vial) 5,000 unit SUBCUT Q12HR [facility] Stop: 08/11/25 08:59 Last Admin: 08/11/24 09:14 Dose: 5,000 unit Hydralazine HCl (Hydralazine 20 Mg/Ml Vial) 10 mg IV-PUSH Q4H PRN PRN Reason: if SBP > 185 Stop: 08/11/25 05:38 Magnesium Sulfate (Magnesium Sulf 4 Gm-*Swfi*) 4 gm in 100 mls @ 12.5 mls/hr IVONCE ONE Stop: 08/11/24 16:39 Last Admin: 08/11/24 09:14 Dose: 12.5 mls/hr Potassium Chloride/Sodium Chloride (0.9 % Nacl-20 Meq Kcl) 1,000 mls @ 125 mls/hr IV .Q8H [facility] Stop: 08/11/25 07:14 Last Admin: 08/11/24 11:51 Dose: 125 mls/hr Insulin Aspart (Insulin Aspart 300 Units/3 Ml) 0 units SUBCUT TID.WM.HS [facility]; Protocol Stop: 08/11/25 07:59 Last Admin: 08/11/24 13:40 Dose: Not Given Ipratropium [place] (Ipratropium [place] 0.5 Mg/2.5 Ml Vial.Neb) 0.5 mg INHALATION QID.RESP [facility] Stop: 08/11/25 07:59 Last Admin: 08/11/24 13:00 Dose: 0.5 mg Isosorbide Mononitrate (Isosorbide Mononitrate 24hr Er 30 Mg Tab.Er.24h) 30 mg PO DAILY [facility] Stop: 08/11/25 08:59 Last Admin: 08/11/24 09:13 Dose: 30 mg Metoprolol Tartrate (Metoprolol Tartrate 100 Mg Tablet) 100 mg PO BID [facility] Stop: 08/11/25 08:59 Last Admin: 08/11/24 09:13 Dose: 100 mg Pantoprazole Sodium (Pantoprazole 40 Mg Tablet.Dr) 40 mg PO BID [facility] Stop: 08/11/25 08:59 Last Admin: 08/11/24 09:13 Dose: 40 mg Pregabalin (Pregabalin 75 Mg Capsule) 75 mg PO TID [facility] Stop: 02/07/25 08:59 Last Admin: 08/11/24 13:40 Dose: 75 mg Ropinirole HCl (Ropinirole 1 Mg Tablet) 1 mg PO TID [facility] Stop: 08/11/25 08:59 Last Admin: 08/11/24 13:40 Dose: 1 mg Tamsulosin HCl (Tamsulosin 0.4 Mg Cap.Er.24h) 0.4 mg PO BID [facility] Stop: 08/11/25 08:59 Last Admin: 08/11/24 09:13 Dose: 0.4 mg Tizanidine HCl (Tizanidine 4 Mg Tablet) 4 mg PO QHS [facility] Stop: 08/11/25 21:59 Exam Physical Exam Vital Signs: Temp Pulse Resp BP Pulse Ox O2 Del Method 98.0 F 67 18 100/65 98 Room Air 08/11/24 08:52 08/11/24 13:38 08/11/24 13:38 08/11/24 13:38 08/11/24 13:38 08/11/24 13:38 Results - Nephrology Labs 08/11/24 04:15 08/11/24 04:15 Labs: 08/11/24 08/11/24 04:15 08:30 BUN 26 H Creatinine 2.62 H Phosphorus 4.8 H Iron Saturation 7.0 L Ferritin 5.3 L Albumin 4.2 25-OH Vitamin D Total 15.0 L PTH Intact 38.3 Urine Color Light-yellow Urine Appearance Clear Urine pH 5.5 Ur Specific [place] 1.024 Urine Protein Negative Urine Glucose (UA) 500 H Urine Ketones Negative Urine Occult Blood Negative Urine Nitrite Negative Ur Leukocyte Esterase Negative Radiology Impressions Impressions - last 24 hours: Impressions Chest X-Ray 08/11/24 04:22 IMPRESSION: No acute process. Impression dictated by: Sudeep Lind M.D.08/11/2024 10:06 AM Dictation Location: [employer] Head CT 08/11/24 04:22 IMPRESSION: No acute findings. Preliminary 5:00 AM 08/11/2024 CTA Head and Neck TECHNIQUE: Axial imaging of the head and neck with 2-D and 3-D reconstruction. 90cc of Isovue-370. The CT exam was performed using one or more the following dose reduction techniques: Automated exposure control, adjustment of the MA and/or Kv according to patient size, or use of the iterative reconstruction technique. Stenoses were measured using the NASCET criteria. COMPARISON: 03/08/2024 HISTORY: Left-sided weakness and numbness The visualized aortic arch and great vessels are unremarkable. Subclavian arteries are patent No carotid dissection, critical stenosis or occlusion identified. No vertebral dissection, occlusion or abrupt cut off identified. The carotid siphons and vertebral basilar systems are patent. Atherosclerosis of the carotid siphons without significant stenosis No intracranial aneurysm, dissection, abrupt cut off or critical stenosis identified.. . IMPRESSION: No occlusion, critical stenosis or dissection of the extracranial orintracranial circulation. Impression dictated by: Sudeep Lind M.D.08/11/2024 10:06 AM Dictation [facility] Any impression(s) listed above is documentation that was entered by the reading physician into a diagnostic report(s) for Myra Pickard . I have reviewed the report(s) and am incorporating any findings in the treatment plan of this patient where applicable. A&P - Nephrology Assessment/Plan (1) Acute kidney injury superimposed on CKD: Assessment/Problem Details: Patient has CKD stage IIIb from diabetic and hypertensive nephropathy. Baselinecreatinine fluctuatedepending on the volume status and variation in blood pressure. Patient received IV contrast at admission for CTA of the head. Serumcreatinine at presentation 2.6 mg deciliter. Patient stated he has been making urine. (2) Hypomagnesemia: Assessment/Problem Details: Patient has been on PPI twice daily for GERD symptoms. He follows with Dr. Burleson in GI clinic. Magnesium level at presentation 0.5 mmol/L. Patient received 6 g of magnesium sulfate (3) Hypocalcemia: Assessment/Problem Details: This is likely from hypomagnesemia. Serum calcium level 6.1 on presentation. Patient received 1 g of calcium gluconate (4) Hypokalemia: Assessment/Problem Details: This is likely also from hypomagnesemia. Patient received 40 mill equivalent p.o. at admission and currently on IV KCl and normal saline (5) Iron deficiency: Assessment/Problem Details: Lab study revealed iron saturation only 7% with very low ferritin level. (6) Vitamin B12 deficiency: Assessment/Problem Details: Serum vitamin B12 level at admission 129. Patient currently on cyanocobalamin 10 mcg p.o. daily (7) BPH loc w urin obs/LUTS: Assessment/Problem Details: patient takes Flomax twice daily at home Plan * There is no indication for renal placement therapy. * Patient at risk for worsening kidney function from IV IV contrast exposure at admission * Continue holding home Jardiance, valsartan/hydrochlorothiazide and Lasix. * Agree with IV fluid normal saline * Continue accurate urine output documentation * Continue to monitor electrolytes and replace as needed * Will start the patient on loading dose of Ferrlecit 250 mg X4 * Continue vitamin B12 supplement * Check CBC renal function panel in a.m. Thank you for allowing me to participate in Mr. Pickard's care. Renal team will continue to follow. Call if any question or concern Documented By: Amina Fagan MD 08/11/24 6205 Signed By: 08/11/24 1418 [facility]03-09-2025 [place] [address] Progress Note Signed Patient: Myra Pickard SR MR#: [id number] : 1965 Acct:[id number] Age/Sex: 59 / M Adm Date: 5 Loc: 3T Room: [address] [place] [address] Type: ADM IN Attending Dr: Kevon Viera MD Copies to: ~ Date of Service: 08/11/2024 Progress Narrative Note PROGRESS NOTE Progress Note: Patient was seen and evaluated at bedside. He was admitted overnight by overnight hospitalist, refer to H&P for further details, continue current management with IV fluids and replacing electrolytes as needed, nephrology has been consulted, input appreciated, patient clinically feeling better today, discussed with patient, all question answered. Documented By: Kevon Viera MD 08/11/24 13 20 Signed By: 08/11/24 1321 [facility]03-09-2025 Radiology Diagnostic study note [facility] [place] [address] CT Scan Report Signed Patient: Myra Pickard SR MR#: [id number] : 1965 Acct:[id number] Age/Sex: 59 / M ADM Date: 5 Loc: 3T Room: [address] [place] [address] Type: ADM IN Attending Dr: Kevon Viera MD Copies to: MD Francisco Urbina Jr, MD~ Ordering Provider: Francisco Duncan Jr, MD Date of Service: 08/11/24 CT/CT head stroke alert wo con: acute stroke/neuro deficits ([id number]) CT/CT angio neck: L side numb ([id number]) CT/CT angio head: L side numb Unenhanced head CTstraw-colored TECHNIQUE: Contiguous axial imaging of the head. The CT exam was performed usingone or more the following dose reduction techniques: Automated exposure control,adjustment of the MA and/or Kv according to patient size, or use of the iterative reconstruction technique. COMPARISON: MRI the brain 03/08/2024 HISTORY: Left-sided weakness and numbness. VENTRICLES: Within normal limits ATROPHY: None BRAIN PARENCHYMA: Decreased density of the white matter is most consistent withchronic small vesseldisease. HEMORRHAGE: None HERNIATION: No mass effect or herniation INFARCTION: No recent vascular distribution infarction is seen. EXTRA-AXIAL FLUID COLLECTIONS None MIDBRAIN: Unremarkable MAIK: Unremarkable MEDULLA: Unremarkable SINUSES: Unremarkable ORBITS: Grossly unremarkable MASTOIDS: Unremarkable BONY STRUCTURES Intact ADDITIONAL FINDINGS: CT/CT head stroke alert wo con IMPRESSION: No acute findings. Preliminary 5:00 AM 08/11/2024 CTA Head and Neck TECHNIQUE: Axial imaging of the head and neck with 2-D and 3-D reconstruction. 90cc of Isovue-370. The CT exam was performed using one or more the following dose reduction techniques: Automated exposure control, adjustment of the MA and/or Kv according to patient size, or use of the iterative reconstruction technique. Stenoses were measured using the NASCET criteria. COMPARISON: 03/08/2024 HISTORY: Left-sided weakness and numbness The visualized aortic arch and great vessels are unremarkable. Subclavian arteries are patent No carotid dissection, critical stenosis or occlusion identified. No vertebral dissection, occlusion or abrupt cut off identified. The carotid siphons and vertebral basilar systems are patent. Atherosclerosis of the carotid siphons without significant stenosis No intracranial aneurysm, dissection, abrupt cut off or critical stenosis identified.. . IMPRESSION: No occlusion, critical stenosis or dissection of the extracranial orintracranial circulation. Impression dictated by: Sudeep Lind M.D.08/11/2024 10:06 AM Dictation Location: [place] [address] Transcribed By: [facility] 08/11/24 1006 Dictated By: Sudeep Lind DO 08/11/24 1000 Signed By: 08/11/24 1006 [facility]03-09-2025 History and physical note Author Marge Andino [facility] Note Date/Time August 11, 2024 7:24 am [facility] [address] [place] [address] Hospitalist H&P Signed Patient: Myra Pickard SR MR#: [id number] : 1965 Acct:[id number] Age/Sex: 59 / M Adm Date: 5 Loc: 3T Room: 9I1430-0 Type: ADM IN Attending Dr: Kevon Viera MD Copies to: DO Kevon Guzman MD Ruta Semaskiene, MD~ HPI DATE OF EXAMINATION: 08/11/24 HISTORY OF PRESENT ILLNESS: 59 years old male woke up yesterday with numbness and tingling all over his body. He denies any headache, he denies any vision problems, he denies any nausea, he also complained of dizziness/lightheadedness like sensation. But he denies any falls or syncopal episode. He denies any abdominal pain. No nausea no vomiting no diarrhea. He denies any signs of dehydration or any new medications. He has good appetite. He denies any dysuria urgency frequency. He denies any difficulties with urination. He denies any focal weakness in upper or lower extremity, he does have below-knee amputation of the right lower extremity. 10 systems are reviewed and are negative apart as mentioned H&P General -patient is awake alert oriented ?3, does not appear to be in distress HEENT -normal oropharyngeal mucosa without any ulcers or exudates Cardiovascular -S1 plus S2, with regular rate, without any murmurs, gallops, rubs Pulmonary -clear to auscultation bilaterally Gastrointestinal -abdomen is soft, nondistended, nontender, bowel sounds positive, no rigidity, no rebound Musculoskeletal -no difficult joint swelling Neurological -no focal Skin -no significant ulcers, no rash noted Extremities - no edema in bilateral lower extremities noted Psychiatry - appropriate affect Laboratory work up, imaging studies reviewed EKG personally reviewed by me side this rhythm with PACs, without ischemic changes, with QTc 485 Previous records in the computer system reviewed CT scan of the head/CT of the head and neck without acute findings -official report pending [facility] Medical History Chronic obstructive pulmonary disease, unspecified Hyperbilirubinemia Hypothermia Vitamin D deficiency 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 Restless legs syndrome Peripheral vascular disease Peripheral edema Lung nodule Insulin long-term use Insomnia Hypotestosteronemia Hypertensive chronic kidney disease with stage 1 through stage 4 chronic kidney disease, or unspecified chronic kidney disease Gout GERD (gastroesophageal reflux disease) Erectile dysfunction Contracture of hand Claudication of both lower extremities Cigarette nicotine dependence with nicotine-induced disorder Bladder mass Atrial fibrillation Atherosclerotic heart disease of [place] coronary artery with unspecified angina pectoris Anxiety Hx of exercise stress test Family history of premature CAD Reports mother had quadruple bypass at age of 45 Myocardial infarction mild Fibromyalgia Chronic back pain Sleep apnea Neuropathy Cataract Peripheral artery disease Hyperlipidemia Diabetes Hypertension Surgical History History of below-knee amputation of right lower extremity 02/2024 [facility] by Dr. Simon Hernández Vascular History of artificial lens replacement Hx of [...] Tobacco Type: cigarettes Substance Use Type: None Substance Abuse Comment: etoh occasionally Social History Comments: mobile home Meds Medications and Allergies Allergies Penicillins Allergy (Unknown, Verified 08/11/24 04:06) Anaphylaxis latex Allergy (Verified 08/11/24 04:06) Unknown Reaction Home Medications albuterol sulfate 90 mcg/actuation aerosol inhaler (ProAir HFA) 2 puff inhalation Q6HR PRN Shortness Of Breath 06/28/19 [History Confirmed 08/11/24] nitroglycerin 0.4 mg sublingual tablet (Nitrostat) 0.4 mg sublingual Q5-15M PRN chest pain 07/12/23 [History Confirmed 08/11/24] flash glucose scanning reader (Natanael Ulien Jigar 2 Ensign) #1 ea 12/28/23 [Rx Confirmed 08/11/24] flash glucose sensor (UlmonStyle Jigar 2 Sensor kit) #1 ea 12/28/23 [Rx Confirmed 08/11/24] tiotropium bromide 18 mcg capsule with inhalation device (Spiriva with HandiHaler) 1 cap inhalation DAILY 03/03/24 [History Confirmed 08/11/24] clopidogrel 75 mg tablet 75 mg PO DAILY 03/08/24 [History Confirmed 08/11/24] tamsulosin 0.4 mg capsule (Flomax) 0.4 mg PO BID 03/08/24 [History Confirmed 08/11/24] insulin syringe,safety needle 1 mL 30 gauge x 1/2 #100 ea 03/29/24 [Rx Confirmed 08/11/24] aspirin 81 mg tablet,delayed release 81 mg PO DAILY 04/05/24 [History Confirmed 08/11/24] budesonide-formoterol HFA 160 mcg-4.5 mcg/actuation aerosol inhaler 2 puff inhalation BID 04/05/24 [History Confirmed 08/11/24] metformin 1,000 mg tablet 1,000 mg PO BID 04/05/24 [History Confirmed 08/11/24] sildenafil 100 mg tablet 100 mg PO DAILY PRN sexual activity #30 tabs 04/05/24 [Rx Confirmed 08/11/24] pen needle, diabetic 32 gauge x 5/32 (Comfort EZ Pen Chadron) #100 ea 04/15/24 [Rx Confirmed 08/11/24] hydroxyzine HCl 25 mg tablet 25 mg PO QHS #90 tabs 05/06/24 [Rx Confirmed 05/07/24] amitriptyline 25 mg tablet 25 mg PO DAILY 05/07/24 [History Confirmed 08/11/24] fremanezumab-vfrm 225 mg/1.5 mL subcutaneous auto-injector (Ajovy) 225 mg subcutQMONTH 05/07/24 [History Confirmed 08/11/24] magnesium oxide 400 mg PO DAILY #90 tabs 05/07/24 [Rx Confirmed 05/07/24] rimegepant 75 mg disintegrating tablet (Nurtec ODT) 75 mg PO Q48HR 05/07/24 [History Confirmed 08/11/24] dulaglutide 0.75 mg/0.5 mL subcutaneous pen injector (Trulicity) 0.75 mg (0.5 mL) subcut QWEEK #2 mL 06/25/24 [Rx Confirmed 08/11/24] empagliflozin 10 mg tablet (Jardiance) 10 mg PO DAILY #90 tabs 06/25/24 [Rx Confirmed 08/11/24] omeprazole 40 mg capsule,delayed release 40 mg PO DAILY #90 caps 06/25/24 [Rx Confirmed 08/11/24] sitagliptin phosphate 100 mg tablet (Januvia) 100 mg PO DAILY #90 tabs 06/25/24 [Rx Confirmed 08/11/24] atorvastatin 80 mg tablet 80 mg PO DAILY #90 tabs 06/27/24 [Rx Confirmed 08/11/24] clonazepam 0.5 mg tablet (Klonopin) 0.5 mg PO .every morning 30 days #30 tabs 06/27/24 [Rx] glimepiride 2 mg tablet 2 mg PO BID #180 tabs 06/27/24 [Rx Confirmed 08/11/24] pregabalin 200 mg capsule 200 mg PO TID 90 days #270 caps 06/27/24 [Rx Confirmed 08/11/24] hydrocodone 5 mg-acetaminophen 325 mg tablet 1 tab PO Q4-6H PRN pain 2 days #6 tabs 07/16/24 [Rx] doxycycline hyclate 100 mg capsule 100 mg PO BID 08/11/24 [History Confirmed 08/11/24] furosemide 40 mg tablet (Lasix) 40 mg PO DAILY 08/11/24 [History Confirmed 08/11/24] isosorbide mononitrate 30 mg tablet,extended release 24 hr 30 mg PO DAILY 08/11/24 [History Confirmed 08/11/24] metoprolol tartrate 25 mg tablet 100 mg PO BID 08/11/24 [History Confirmed 08/11/24] ropinirole 0.5 mg tablet 1 mg PO TID 08/11/24 [History Confirmed 08/11/24] tizanidine 4 mg tablet 4 mg PO QHS 08/11/24 [History Confirmed 08/11/24] valsartan 160 mg-hydrochlorothiazide 12.5 mg tablet (Diovan HCT) 1 tab PO DAILY 08/11/24 [History Confirmed 08/11/24] Exam Physical Exam Vital Signs: Temp Pulse Resp BP Pulse Ox O2 Del Method 36.6 C 92 16 113/61 99 Room Air 08/11/24 06:29 08/11/24 06:29 08/11/24 06:29 08/11/24 06:29 08/11/24 06:29 08/11/24 06:52 Results - Hospitalist H&P Lab Results Labs: Laboratory Last Values Corrected WBC 10.7 X10E3/uL (4.1-10.5) H 08/11/24 04:15 Uncorrected WBC Count 10.7 x10E3/uL (4.1-10.5) H 08/11/24 04:15 RBC 5.32 x10E6/uL (3.90-5.60) 08/11/24 04:15 Hgb 11.6 g/dL (13.0-17.0) L 08/11/24 04:15 Hct 35.8 % (38.8-50.0) L 08/11/24 04:15 MCV 67.4 fl (83.5-101) L 08/11/24 04:15 MCH 21.8 pg (27.5-35.2) L 08/11/24 04:15 MCHC 32.3 g/dL (32.5-35.6) L 08/11/24 04:15 RDW 20.1 % (12.0-14.8) H 08/11/24 04:15 Plt Count 209 x10E3/uL (150-450) 08/11/24 04:15 MPV 9.1 fl (6.6-10.1) 08/11/24 04:15 Neut % (Auto) N/A 08/11/24 04:15 Lymph % (Auto) N/A 08/11/24 04:15 O'Brien % (Auto) N/A 08/11/24 04:15 Eos % (Auto) N/A 08/11/24 04:15 Baso % (Auto) N/A 08/11/24 04:15 Nucleat RBC Rel Count N/A 08/11/24 04:15 Neut # (Auto) N/A 08/11/24 04:15 Lymph # (Auto) N/A 08/11/24 04:15 O'Brien # (Auto) N/A 08/11/24 04:15 Eos # (Auto) N/A 08/11/24 04:15 Baso # (Auto) N/A 08/11/24 04:15 Band Neutrophils % 1 % (0-5) 08/11/24 04:15 Lymphocytes % 30 % (18-42) 08/11/24 04:15 Monocytes % 5 % (2-11) 08/11/24 04:15 Eosinophils % 4 % (1-3) H 08/11/24 04:15 Basophils % 1 % (0-2) 08/11/24 04:15 Segmented Neutrophils 60 % (50-70) 08/11/24 04:15 Monocyte Dist Width 17.90 % (0.00-20.00) 08/11/24 04:15 Platelet Estimate Normal (Normal) 08/11/24 04:15 Plt Morphology Comment Normal (Normal) 08/11/24 04:15 RBC Morphology N/A 08/11/24 04:15 Polychromasia Slight 08/11/24 04:15 Poikilocytosis Slight 08/11/24 04:15 Anisocytosis Marked 08/11/24 04:15 Microcytosis Moderate 08/11/24 04:15 Ovalocytes Slight 08/11/24 04:15 Crenated Cell Slight 08/11/24 04:15 PT 13.8 Seconds (9.0-12.9) H 08/11/24 04:15 INR 1.2 08/11/24 04:15 APTT 30.9 Seconds (25.1-36.5) 08/11/24 04:15 PHA Creatinine Clear 33.32 08/11/24 04:15 Sodium 140 mmol/L (136-145) 08/11/24 04:15 Potassium 3.1 mmol/L (3.5-5.1) L 08/11/24 04:15 Chloride 100 mmol/L (98-107) 08/11/24 04:15 Carbon Dioxide 27.1 mmol/L (21.0-31.0) 08/11/24 04:15 Anion Gap 16.0 mEq/L (6.0-15.0) H 08/11/24 04:15 BUN 26 mg/dL (7-25) H 08/11/24 04:15 Creatinine 2.62 mg/dL (0.70-1.30) H 08/11/24 04:15 Est GFR (CKD-EPI) 27.293 mL/Min 08/11/24 04:15 Glucose 102 mg/dL (70-100) H 08/11/24 04:15 POC Glucose 176 mg/dl 08/11/24 06:33 Calcium 6.1 mg/dL (8.6-10.3) L* 08/11/24 04:15 Phosphorus 4.8 mg/dL (2.5-4.5) H 08/11/24 04:15 Magnesium 0.5 mg/dL (1.9-2.7) L* 08/11/24 04:15 Total Bilirubin 0.4 mg/dl (0.3-1.0) 08/11/24 04:15 AST 12 U/L (13-39) L 08/11/24 04:15 ALT 11 U/L (7-52) 08/11/24 04:15 Alkaline Phosphatase 105 U/L (34-104) H 08/11/24 04:15 Total Creatine Kinase 305 U/L (30-223) H 08/11/24 04:15 Troponin I High Sens 6 ng/L (0-20) 08/11/24 04:15 Total Protein 6.9 gm/dL (6.4-8.9) 08/11/24 04:15 Albumin 4.2 gm/dL (3.5-5.7) 08/11/24 04:15 Globulin 2.7 gm/dL 08/11/24 04:15 Albumin/Globulin Ratio 1.6 08/11/24 04:15 Vitamin B12 129 pg/mL (180-914) L 08/11/24 04:15 25-OH Vitamin D Total 15.0 ng/mL (30-100) L 08/11/24 04:15 Folate 14.0 ng/mL (>5.9) 08/11/24 04:15 TSH 3rd Generation 4.18 uIU/mL (0.45-5.33) 08/11/24 04:15 PTH Intact 38.3 pg/mL (12-88) 08/11/24 04:15 Assessment & Plan Assessment/Plan (1) Acute kidney injury superimposed on CKD: Plan 1. Bilateral paresthesias of the upper and lower extremities without any other focal neurological dysfunction CT scan of the head/CTA of the head and neck done in the emergency room without acute findings, official report pending Suspect due to significant electrolyte abnormalities including severe hypomagnesemia/hypokalemia/hypocalcemia -start replacement Vitamin B12 deficiency could contribute as well, start replacement 2. Acute kidney injury with underlying chronic kidney disease stage III baseline creatinine 1.8, Check bladder scan to rule out obstruction, clinically patient appears to be dry, start IV fluids Strict input and output, avoid any nephrotoxic medications Patient did get a contrast in emergency room 3. Microcytic anemia previously diagnosed with iron deficiency, this time iron studies pending Will need to be evaluated as outpatient If proven start iron supplements 4. Diabetes mellitus type 2 with hemoglobin A1c 7.3 Continue with home therapy, add sliding scale 5. Coronary artery disease status post previous intervention, currently patientdenies any chest pain, troponin negative, EKG nonischemic 6. DVT prophylaxis heparin IP vs OBS Justification Based on differential dx, clinical care plan, and risk of adverse events, if untreated, in my clinical judgement this patient requires an acute care setting as: INPATIENT because of an expectation of an over 2 midnight stay. Estimated length of stay (# of days): 3 Documented By: Marge Andino MD 08/11/24716 Signed By: <Electronically signed by Marge Andino MD> 08/11/24 2198 [facility] Work Phone: 1(632) 640-391403-09-2025 Evaluation note* Diagnosis Onset Date Resolution Status Admit Date Acute kidney injury superimp osed on CKD acute August 11, 2024 5:39am BPH loc w urin obs/LUTS acute M [facility] 2024 5:39am Diabetes acute August 11 5:39am Hypocalcemia acute August 11 025 5:39am Hypokalemia acute August 11 5:39am Hypomagnesemia acute August 11, 2024 5:39am Iron deficiency acute August 5:39am Left sided numbness acute August 11, 2024 5:39am Paresthesias acute August 11 025 5:39am Vitamin B12 deficiency acute Ma [facility] 2024 5:39am Hypertension chronic August 11 025 5:39am [facility] Work Phone: 1(655) 129-579003-09-2025 Evaluation note* Diagnosis Onset Date Resolution Status Admit Date Hypocalcemia acute August 11 025 5:39am Hypokalemia acute August 11 5:39am Hypomagnesemia acute August 11, 2024 5:39am Acute kidney injury superimp osed on CKD inactive August 11, 2024 5:39am BPH loc w urin obs/LUTS inactive [facility] 2024 5:39am Diabetes inactive August 11 5:39am Hypertension inactive August 11, 025 5:39am Iron deficiency inactive August 5:39am Left sided numbness inactive August 11, 2024 5:39am Paresthesias inactive August 11, 025 5:39am Vitamin B12 deficiency inactive [facility] 2024 5:39am Anemia of renal disease acute [facility] 2024 8:37am Chronic kidney disease, stage 3b acu te August 30, 2024 8:37am 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 acute [facility] 2024 8:37am Hypocalcemia acute August 30, 2024 8:37am Hypokalemia acute August 30 8:37am Hypomagnesemia acute August 8:37am Neuropathy acute August 30 8:37am Non compliance w medication regimen acute August 30, 2024 8:37am [facility] Work Phone: [phone]) 415-784803-09-2025 Evaluation note* Diagnosis Onset Date Resolution Status Admit Date Hypocalcemia acute August 11 5:39am Hypokalemia acute August 11 5:39am Hypomagnesemia acute August 11, 2024 5:39am Acute kidney injury superimp osed on CKD inactive August 11, 2024 5:39am BPH loc w urin obs/LUTS inactive [facility] 2024 5:39am Diabetes inactive August 11 5:39am Hypertension inactive August 11, 025 5:39am Iron deficiency inactive August 5:39am Left sided numbness inactive August 11, 2024 5:39am Paresthesias inactive August 11 025 5:39am Vitamin B12 deficiency inactive [facility] 2024 5:39am Anemia of renal disease acute [facility] 2024 8:37am Chronic kidney disease, stage 3b acu te August 30, 2024 8:37am 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 acute [facility] 2024 8:37am Hypocalcemia acute August 30, 2024 8:37am Hypokalemia acute August 30, 025 8:37am Hypomagnesemia acute August 8:37am Neuropathy acute August 30 8:37am Non compliance w medication regimen acute August 30, 2024 8:37am Chest pain acute October 10, 2024 6:25pm [facility] Work Phone: [phone] 729-855003-09-2025 Evaluation note* Diagnosis Onset Date Resolution Status Admit Date Hypocalcemia acute August 11, 025 5:39am Hypokalemia acute August 11 5:39am Hypomagnesemia acute August 11, 2024 5:39am Acute kidney injury superimp osed on CKD inactive August 11, 2024 5:39am BPH loc w urin obs/LUTS inactive [facility] 2024 5:39am Diabetes inactive August 11 5:39am Hypertension inactive August 11 025 5:39am Iron deficiency inactive August 5:39am Left sided numbness inactive August 11, 2024 5:39am Paresthesias inactive August 11 025 5:39am Vitamin B12 deficiency inactive [facility] 2024 5:39am Anemia of renal disease acute [facility] 2024 8:37am Chronic kidney disease, stage 3b acu te August 30, 2024 8:37am 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 acute [facility] 2024 8:37am Hypocalcemia acute August 30, 2024 8:37am Hypokalemia acute August 30 025 8:37am Hypomagnesemia acute August 8:37am Neuropathy acute August 30 8:37am Non compliance w medication regimen acute August 30, 2024 8:37am CAD (coronary artery disease) inacti ve October 10, 2024 6:25pm Chronic kidney disease inactive [facility] 2024 6:25pm Chronic obstructive pulmonar y disease, unspecified inactive October 10 6:25pm History of below-knee amputa tion of right lower extremity inactive May 8th , 2025 6:25pm Hyperlipidemia inactive October 10 025 6:25pm Chest pain deleted October 10, 2024 6:25pm [facility] Work Phone: [phone]) 269-219503-09-2025 Evaluation note* Diagnosis Onset Date Resolution Status Admit Date Hypocalcemia acute August 11, 2 025 5:39am Hypokalemia acute August 11 5:39am Hypomagnesemia acute August 11, 2024 5:39am Iron deficiency acute August 5:39am Vitamin B12 deficiency acute [facility] 2024 5:39am Acute kidney injury superimp osed on CKD inactive August 11, 2024 5:39am BPH loc w urin obs/LUTS inactive [facility] 2024 5:39am Diabetes inactive August 11 5:39am Hypertension inactive August 11, 025 5:39am Left sided numbness inactive August 11, 2024 5:39am Paresthesias inactive August 11, 025 5:39am Anemia of renal disease acute [facility] 2024 8:37am Chronic kidney disease, stage 3b acu te August 30, 2024 8:37am 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 acute [facility] 2024 8:37am Hypocalcemia acute August 30, 2024 8:37am Hypokalemia acute August 30 025 8:37am Hypomagnesemia acute August 8:37am Neuropathy acute August 30 8:37am Non compliance w medication regimen acute August 30, 2024 8:37am CAD (coronary artery disease) acute October 10, 2024 6:25pm History of below-knee amputa tion of right lower extremity acute October 6:25pm Chronic kidney disease inactive [facility] 2024 6:25pm Chronic obstructive pulmonar y disease, unspecified inactive October 10 6:25pm Hyperlipidemia inactive October 10 025 6:25pm Chest pain deleted October 10, 2024 6:25pm Anemia of renal disease acute J [facility] 2024 1:08pm CAD (coronary artery disease) acute November 05, 2024 1:08pm Cigarette nicotine dependenc e with nicotine-induced disorder acute J une 2024 1:08pm 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 acute [facility] 2024 1:08pm History of below-knee amputa tion of right lower extremity acute November 1:08pm Hypocalcemia acute November 05 1:08pm Vitamin D deficiency acute November 05, 2024 1:08pm Anemia of renal disease acute J [facility] 2024 4:13pm BMI 34.0-34.9,adult acute November 05, 2024 4:13pm Chronic kidney disease, stage 3b acu te November 05, 2024 4:13pm 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 acute [facility] 2024 4:13pm Gout acute November 05, 2024 4:13pm Hypertensive nephropathy acute November 05, 2024 4:13pm Hypomagnesemia acute November 05, 2024 4:13pm Iron deficiency acute November 05, 2024 4:13pm Vitamin D deficiency acute November 05, 2024 4:13pm BPH loc w urin obs/LUTS inactive [facility] 2024 4:13pm [facility] Work Phone: [phone]) [phone] Evaluation note* Diagnosis Onset Date Resolution Status Admit Date Hypocalcemia acute August 11 025 5:39am Hypokalemia acute August 11 5:39am Hypomagnesemia acute August 11, 2024 5:39am Acute kidney injury superimp osed on CKD inactive August 11, 2024 5:39am BPH loc w urin obs/LUTS inactive [facility] 2024 5:39am Diabetes inactive August 11 5:39am Hypertension inactive August 11 025 5:39am Iron deficiency inactive August 5:39am Left sided numbness inactive August 11, 2024 5:39am Paresthesias inactive August 11 025 5:39am Vitamin B12 deficiency inactive [facility] 2024 5:39am Anemia of renal disease acute [facility] 2024 8:37am Chronic kidney disease, stage 3b acu te August 30, 2024 8:37am 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 acute [facility] 2024 8:37am Hypocalcemia acute August 30, 2024 8:37am Hypokalemia acute August 30, 2 025 8:37am Hypomagnesemia acute August 8:37am Neuropathy acute August 30 8:37am Non compliance w medication regimen acute August 30, 2024 8:37am CAD (coronary artery disease) acute October 10, 2024 6:25pm History of below-knee amputa tion of right lower extremity acute October 6:25pm Chronic kidney disease inactive [facility] 2024 6:25pm Chronic obstructive pulmonar y disease, unspecified inactive October 10 6:25pm Hyperlipidemia inactive October 10, 2 025 6:25pm Chest pain deleted October 10, 2024 6:25pm Anemia of renal disease acute J une 2024 1:08pm CAD (coronary artery disease) acute November 05, 2024 1:08pm Cigarette nicotine dependenc e with nicotine-induced disorder acute J une 2024 1:08pm 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 acute 2024 1:08pm History of below-knee amputa tion of right lower extremity acute November 1:08pm Hypocalcemia acute November 05 1:08pm Vitamin D deficiency acute November 05, 2024 1:08pm [facility] Work Phone: 1(395) 785-598503-09-2025 [place] [address] Hospitalist H&P Signed Patient: Myra Pickard SR MR#: [id number] : 1965 Acct:[id number] Age/Sex: 59 / M Adm Date: 5 Loc: Room: [address] [place] [address] Type: ADM IN Attending Dr: Kevon Viera MD Copies to: DO Kevon Guzman MD Ruta Semaskiene, MD~ HPI DATE OF EXAMINATION: 08/11/24 HISTORY OF PRESENT ILLNESS: 59 years old male woke up yesterday with numbness and tingling all over his body. He denies any headache, he denies any vision problems, he denies any nausea, he also complained of dizziness/lightheadedness like sensation. But he denies any falls or syncopal episode. He denies any abdominal pain. No nausea no vomiting no diarrhea. He denies any signs of dehydration or any new medications. He has good appetite. He denies any dysuria urgency frequency. He denies any difficulties with urination. He denies any focal weakness in upper or lower extremity, he does have below-knee amputation of the right lower extremity. 10 systems are reviewed and are negative apart as mentioned H&P General -patient is awake alert oriented ?3, does not appear to be in distress HEENT -normal oropharyngeal mucosa without any ulcers or exudates Cardiovascular -S1 plus S2, with regular rate, without any murmurs, gallops, rubs Pulmonary -clear to auscultation bilaterally Gastrointestinal -abdomen is soft, nondistended, nontender, bowel sounds positive, no rigidity, no rebound Musculoskeletal -no difficult joint swelling Neurological -no focal Skin -no significant ulcers, no rash noted Extremities - no edema in bilateral lower extremities noted Psychiatry - appropriate affect Laboratory work up, imaging studies reviewed EKG personally reviewed by me side this rhythm with PACs, without ischemic changes, with QTc 485 Previous records in the computer system reviewed CT scan of the head/CT of the head and neck without acute findings -official report pending [facility] Medical History Chronic obstructive pulmonary disease, unspecified Hyperbilirubinemia Hypothermia Vitamin D deficiency 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 Restless legs syndrome Peripheral vascular disease Peripheral edema Lung nodule Insulin long-term use Insomnia Hypotestosteronemia Hypertensive chronic kidney disease with stage 1 through stage 4 chronic kidney disease, or unspecified chronic kidney disease Gout GERD (gastroesophageal reflux disease) Erectile dysfunction Contracture of hand Claudication of both lower extremities Cigarette nicotine dependence with nicotine-induced disorder Bladder mass Atrial fibrillation Atherosclerotic heart disease of [place] coronary artery with unspecified angina pectoris Anxiety Hx of exercise stress test Family history of premature CAD Reports mother had quadruple bypass at age of 45 Myocardial infarction mild Fibromyalgia Chronic back pain Sleep apnea Neuropathy Cataract Peripheral artery disease Hyperlipidemia Diabetes Hypertension Surgical History History of below-knee amputation of right lower extremity 02/2024 [facility] by Dr. Simon Hernández Vascular History of artificial lens replacement Hx of [...] Tobacco Type: cigarettes Substance Use Type: None Substance Abuse Comment: etoh occasionally Social History Comments: mobile home Meds Medications and Allergies Allergies Penicillins Allergy (Unknown, Verified 08/11/24 04:06) Anaphylaxis latex Allergy (Verified 08/11/24 04:06) Unknown Reaction Home Medications albuterol sulfate 90 mcg/actuation aerosol inhaler (ProAir HFA) 2 puff inhalation Q6HR PRN Shortness Of Breath 06/28/19 [History Confirmed 08/11/24] nitroglycerin 0.4 mg sublingual tablet (Nitrostat) 0.4 mg sublingual Q5-15M PRN chest pain 07/12/23[History Confirmed 08/11/24] flash glucose scanning reader (UlmonStyle Jigar 2 Ensign) #1 ea 12/28/23 [Rx Confirmed 08/11/24] flash glucose sensor (FreeStyle Jigar 2 Sensor kit) #1 ea 12/28/23 [Rx Confirmed 08/11/24] tiotropium bromide 18 mcg capsule with inhalation device (Spiriva with HandiHaler) 1 cap inhalationDAILY 03/03/24 [History Confirmed 08/11/24] clopidogrel 75 mg tablet 75 mg PO DAILY 03/08/24 [History Confirmed 08/11/24] tamsulosin 0.4 mg capsule (Flomax) 0.4 mg PO BID 03/08/24 [History Confirmed 08/11/24] insulin syringe,safety needle 1 mL 30 gauge x 1/2 #100 ea 03/29/24 [Rx Confirmed 08/11/24] aspirin 81 mg tablet,delayed release 81 mg PO DAILY 11/01/24 [History Confirmed 08/11/24] budesonide-formoterol HFA 160 mcg-4.5 mcg/actuation aerosol inhaler 2 puff inhalation BID 04/05/24 [History Confirmed 08/11/24] metformin 1,000 mg tablet 1,000 mg PO BID 04/05/24 [History Confirmed 08/11/24] sildenafil 100 mg tablet 100 mg PO DAILY PRN sexual activity #30 tabs 04/05/24 [Rx Confirmed 08/11/24] pen needle, diabetic 32 gauge x 5/32 (Comfort EZ Pen Chadron) #100 ea 04/15/24 [Rx Confirmed 08/11/24] hydroxyzine HCl 25 mg tablet 25 mg PO QHS #90 tabs 05/06/24 [Rx Confirmed 05/07/24] amitriptyline 25 mg tablet 25 mg PO DAILY 05/07/24 [History Confirmed 08/11/24] fremanezumab-vfrm 225 mg/1.5 mL subcutaneous auto-injector (Ajovy) 225 mg subcutQMONTH 05/07/24 [History Confirmed 08/11/24] magnesium oxide 400 mg PO DAILY #90 tabs 05/07/24 [Rx Confirmed 05/07/24] rimegepant 75 mg disintegrating tablet (Nurtec ODT) 75 mg PO Q48HR 05/07/24 [History Confirmed 08/11/24] dulaglutide 0.75 mg/0.5 mL subcutaneous pen injector (Trulicity) 0.75 mg (0.5 mL) subcut QWEEK #2 mL 06/25/24 [Rx Confirmed 08/11/24] empagliflozin 10 mg tablet (Jardiance) 10 mg PO DAILY #90 tabs 06/25/24 [Rx Confirmed 08/11/24] omeprazole 40 mg capsule,delayed release 40 mg PO DAILY #90 caps 06/25/24 [Rx Confirmed 08/11/24] sitagliptin phosphate 100 mg tablet (Januvia) 100 mg PO DAILY #90 tabs 06/25/24 [Rx Confirmed 08/11/24] atorvastatin 80 mg tablet 80 mg PO DAILY #90 tabs 06/27/24 [Rx Confirmed 08/11/24] clonazepam 0.5 mg tablet (Klonopin) 0.5 mg PO .every morning 30 days #30 tabs 06/27/24 [Rx] glimepiride 2 mg tablet 2 mg PO BID #180 tabs 06/27/24 [Rx Confirmed 08/11/24] pregabalin 200 mg capsule 200 mg PO TID 90 days #270 caps 06/27/24 [Rx Confirmed 08/11/24] hydrocodone 5 mg-acetaminophen 325 mg tablet 1 tab PO Q4-6H PRN pain 2 days #6 tabs 07/16/24 [Rx] doxycycline hyclate 100 mg capsule 100 mg PO BID 08/11/24 [History Confirmed 08/11/24] furosemide 40 mg tablet (Lasix) 40 mg PO DAILY 08/11/24 [History Confirmed 08/11/24] isosorbide mononitrate 30 mg tablet,extended release 24 hr 30 mg PO DAILY 08/11/24 [History Confirmed 08/11/24] metoprolol tartrate 25 mg tablet 100 mg PO BID 08/11/24 [History Confirmed 08/11/24] ropinirole 0.5 mg tablet 1 mg PO TID 08/11/24 [History Confirmed 08/11/24] tizanidine 4 mg tablet 4 mg PO QHS 08/11/24 [History Confirmed 08/11/24] valsartan 160 mg-hydrochlorothiazide 12.5 mg tablet (Diovan HCT) 1 tab PO DAILY 08/11/24 [History Confirmed 08/11/24] Exam Physical Exam Vital Signs: Temp Pulse Resp BP Pulse Ox O2 Del Method 36.6 C 92 16 113/61 99 Room Air 08/11/24 06:29 08/11/24 06:29 08/11/24 06:29 08/11/24 06:29 08/11/24 06:29 08/11/24 06:52 Results - Hospitalist H&P Lab Results Labs: Laboratory Last Values Corrected WBC 10.7 X10E3/uL (4.1-10.5) H 08/11/24 04:15 Uncorrected WBC Count 10.7 x10E3/uL (4.1-10.5) H 08/11/24 04:15 RBC 5.32 x10E6/uL (3.90-5.60) 08/11/24 04:15 Hgb 11.6 g/dL (13.0-17.0) L 08/11/24 04:15 Hct 35.8 % (38.8-50.0) L 08/11/24 04:15 MCV 67.4 fl (83.5-101) L 08/11/24 04:15 MCH 21.8 pg (27.5-35.2) L 08/11/24 04:15 MCHC 32.3 g/dL (32.5-35.6) L 08/11/24 04:15 RDW 20.1 % (12.0-14.8) H 08/11/24 04:15 Plt Count 209 x10E3/uL (150-450) 08/11/24 04:15 MPV 9.1 fl (6.6-10.1) 08/11/24 04:15 Neut % (Auto) N/A 08/11/24 04:15 Lymph % (Auto) N/A 08/11/24 04:15 O'Brien % (Auto) N/A 08/11/24 04:15 Eos % (Auto) N/A 08/11/24 04:15 Baso % (Auto) N/A 08/11/24 04:15 Nucleat RBC Rel Count N/A 08/11/24 04:15 Neut # (Auto) N/A 08/11/24 04:15 Lymph # (Auto) N/A 08/11/24 04:15 O'Brien # (Auto) N/A 08/11/24 04:15 Eos # (Auto) N/A 08/11/24 04:15 Baso # (Auto) N/A 08/11/24 04:15 Band Neutrophils % 1 % (0-5) 08/11/24 04:15 Lymphocytes % 30 % (18-42) 08/11/24 04:15 Monocytes % 5 % (2-11) 08/11/24 04:15 Eosinophils % 4 % (1-3) H 08/11/24 04:15 Basophils % 1 % (0-2) 08/11/24 04:15 Segmented Neutrophils 60 % (50-70) 08/11/24 04:15 Monocyte Dist Width 17.90 % (0.00-20.00) 08/11/24 04:15 Platelet Estimate Normal (Normal) 08/11/24 04:15 Plt Morphology Comment Normal (Normal) 08/11/24 04:15 RBC Morphology N/A 08/11/24 04:15 Polychromasia Slight 08/11/24 04:15 Poikilocytosis Slight 08/11/24 04:15 Anisocytosis Marked 08/11/24 04:15 Microcytosis Moderate 08/11/24 04:15 Ovalocytes Slight 08/11/24 04:15 Crenated Cell Slight 08/11/24 04:15 PT 13.8 Seconds (9.0-12.9) H 08/11/24 04:15 INR 1.2 08/11/24 04:15 APTT 30.9 Seconds (25.1-36.5) 08/11/24 04:15 PHA Creatinine Clear 33.32 08/11/24 04:15 Sodium 140 mmol/L (136-145) 08/11/24 04:15 Potassium 3.1 mmol/L (3.5-5.1) L 08/11/24 04:15 Chloride 100 mmol/L (98-107) 08/11/24 04:15 Carbon Dioxide 27.1 mmol/L (21.0-31.0) 08/11/24 04:15 Anion Gap 16.0 mEq/L (6.0-15.0) H 08/11/24 04:15 BUN 26 mg/dL (7-25) H 08/11/24 04:15 Creatinine 2.62 mg/dL (0.70-1.30) H 08/11/24 04:15 Est GFR (CKD-EPI) 27.293 mL/Min 08/11/24 04:15 Glucose 102 mg/dL (70-100) H 08/11/24 04:15 POC Glucose 176 mg/dl 08/11/24 06:33 Calcium 6.1 mg/dL (8.6-10.3) L* 08/11/24 04:15 Phosphorus 4.8 mg/dL (2.5-4.5) H 08/11/24 04:15 Magnesium 0.5 mg/dL (1.9-2.7) L* 08/11/24 04:15 Total Bilirubin 0.4 mg/dl (0.3-1.0) 08/11/24 04:15 AST 12 U/L (13-39) L 08/11/24 04:15 ALT 11 U/L (7-52) 08/11/24 04:15 Alkaline Phosphatase 105 U/L (34-104) H 08/11/24 04:15 Total Creatine Kinase 305 U/L (30-223) H 08/11/24 04:15 Troponin I High Sens 6 ng/L (0-20) 08/11/24 04:15 Total Protein 6.9 gm/dL (6.4-8.9) 08/11/24 04:15 Albumin 4.2 gm/dL (3.5-5.7) 08/11/24 04:15 Globulin 2.7 gm/dL 08/11/24 04:15 Albumin/Globulin Ratio 1.6 08/11/24 04:15 Vitamin B12 129 pg/mL (180-914) L 08/11/24 04:15 25-OH Vitamin D Total 15.0 ng/mL (30-100) L 08/11/24 04:15 Folate 14.0 ng/mL (>5.9) 08/11/24 04:15 TSH 3rd Generation 4.18 uIU/mL (0.45-5.33) 08/11/24 04:15 PTH Intact 38.3 pg/mL (12-88) 08/11/24 04:15 Assessment & Plan Assessment/Plan (1) Acute kidney injury superimposed on CKD: Plan 1. Bilateral paresthesias of the upper and lower extremities without any other focal neurological dysfunction CT scan of the head/CTA of the head and neck done in the emergency room without acute findings, official report pending Suspect due to significant electrolyte abnormalities including severe hypomagnesemia/hypokalemia/hypocalcemia -start replacement Vitamin B12 deficiency could contribute as well, start replacement 2. Acute kidney injury with underlying chronic kidney disease stage III baseline creatinine 1.8, Check bladder scan to rule out obstruction, clinically patient appears to be dry, start IV fluids Strict input and output, avoid any nephrotoxic medications Patient did get a contrast in emergency room 3. Microcytic anemia previously diagnosed with iron deficiency, this time iron studies pending Will need to be evaluated as outpatient If proven start iron supplements 4. Diabetes mellitus type 2 with hemoglobin A1c 7.3 Continue with home therapy, add sliding scale 5. Coronary artery disease status post previous intervention, currently patientdenies any chest pain, troponin negative, EKG nonischemic 6. DVT prophylaxis heparin IP vs OBS Justification Based on differential dx, clinical care plan, and risk of adverse events, if untreated, in my clinical judgement this patient requires an acute care setting as: INPATIENT because of an expectation ofan over 2 midnight stay. Estimated length of stay (# of days): 3 Documented By: Marge Andino MD 08/11/2417 Signed By: 08/11/2424 [facility]03-04-2025 NotePatient Education Urology Orchitis Orchitis is inflammation of a testicle. Testicles are the male organs that produce sperm. The testicles are held in a fleshy sac (scrotum) located behind the penis. Orchitis usually affects only one testicle, but it can affect both. Orchitis is caused by infection. Many kinds of bacteria and viruses can cause this infection. The condition can develop suddenly. What are the causes? This condition may be caused by: ??? Infection from viruses or bacteria. ??? Other organisms, such as fungi or parasites. This is rare but can happen in men who have a weakbody defense system (immune system), such as men who have HIV. Bacteria ??? Bacterial orchitis often occurs along with an infection of the tube that collects and stores sperm (epididymis). ??? In men who are not sexually active, this infection usually starts as a urinary tract infection and spreads to the testicle. ??? In sexually active men, sexually transmitted infections (STIs) are the most common cause of bacterial orchitis. These can include: ? Gonorrhea. ? Chlamydia. Viruses ??? Mumps is the most common cause of viral orchitis, though mumps is now rare in many areas because of vaccination. ??? Other viruses that can cause orchitis include: ? The chickenpox virus (varicella-zoster virus). ? The virus that causes mononucleosis (Eddie?Lakhani virus). What increases the risk? The following factors may make you more likely to develop this condition: ??? For viral orchitis: ? Not having been vaccinated against mumps. ??? For bacterial orchitis: ? Having had frequent urinary tract infections. ? Engaging in high-risk sexual behaviors, such as having multiple sexual partners or having sex without using a condom. ? Having a sexual partner with an STI. ? Having had urinary tract surgery. ? Using a tube that is passed through the penis to drain urine (Garza catheter). ? Having an enlarged prostate gland. What are the signs or symptoms? The most common symptoms of orchitis are swelling and pain in the scrotum. Other signs and symptomsmay include: ??? Feeling generally sick (malaise). ??? Fever and chills. ??? Painful urination. ??? Painful ejaculation. ??? Headache. ??? Fatigue. ??? Nausea. ??? Blood or discharge from the penis. ??? Swollen lymph nodes in the groin area (inguinal nodes). How is this diagnosed? This condition may be diagnosed based on: ??? Your symptoms. Your health care provider may suspect orchitis if you have a painful, swollen testicle along with other signs and symptoms of the condition. ??? A physical exam. You may also have other tests, including: ??? A blood test to check for signs of infection. ??? A urine test to check for a urinary tract infection or STI. ??? Using a swab to collect a fluid sample from the tip of the penis to test for STIs. ??? Taking an image of the testicle using sound waves and a computer (testicular ultrasound). How is this treated? Treatment for this condition depends on the cause. For bacterial orchitis, your health care provider may prescribe antibiotic medicines. Bacterial infections usually clear up within a few days. For both viral infections and bacterial infections, treatment may include: ??? Rest. ??? Anti-inflammatory medicines. ??? Pain medicines. ??? Raising (elevating) the scrotum with a towel or pillow and applying ice. Follow these instructions at home: Managing pain and swelling Elevate your scrotum and apply ice as directed. To do this: ??? Put ice in a plastic bag. ??? Place a small towel or pillow between your legs. ??? Rest your scrotum on the pillow or towel. ??? Place another towel between your skin and the plastic bag. ??? Leave the ice on for 20 minutes, 2?3 times a day. ??? Remove the ice if your skin turns bright red. This is very important. If you cannot feel pain, heat, or cold, you have a greater risk of damage to the area. General instructions ??? Rest as told by your health care provider. ??? Take uhrf-dsd-voixqsy and prescription medicines only as told by your health care provider. ??? If you were prescribed an antibiotic medicine, take it as told by your health care provider. Donot stop taking the antibiotic even if you start to feel better. ??? Do not have sex until your health care provider says it is okay to do so. ??? Keep all follow-up visits. This is important. Contact a health care provider if: ??? You have a fever. ??? Pain and swelling have not gotten better after 3 days. Get help right away if: ??? Your pain is getting worse. ??? The swelling in your testicle gets worse. Summary ??? Orchitis is inflammation of a testicle. It is caused by an infection from bacteria or a virus. ??? The most common symptoms of orchitis are swelling and pain in the scrotum. ??? Treatment for this condition depends on the cause. It may include medicines to fight th (more content not included)...[facility]12-23-2024 Hospital Discharge instructions Patient Education 05/27/2024 16:01:01 [...] urethra. Follow these instructions at home: Take ydjz-iyx-cjdvaeh and prescription medicines only as told by [...] provider. Document Revised: 12/08/2021 Document Reviewed: 12/08/2021 [email or web address] Patient Education 2023 [employer]. Follow Up Care 04/01/2024 10:56:08 With:SOLEDAD HERRERA, Yeyo Blmu, URL Address: [facility] [address], [place] [address]- [phone] When: Unknown [facility] Aurelio 12-23-2024 NotePatient Education Urology Benign Prostatic Hyperplasia Benign prostatic [...] this procedure, a tool is inserted through theopening at the tip of the penis (urethra). [...] procedure uses radio frequencies to destroy and removea small amount of prostate tissue. ? Interstitial laser coagulation (ILC). This procedure uses a laser to destroy and remove a small amount of prostate tissue. ? Transurethral electrovaporization (TUVP). This procedure uses electrodes to destroy and remove a small amount of prostate tissue. ? Prostatic urethral lift. This procedure inserts an implant to push the lobes of the prostate awayfrom the urethra. Follow these instructions at home: ??? Take xwrj-dsy-tdodeah and prescription medicines only as told by [...] symptoms do not get (more content not included)...[facility]12-23-2024 Evaluation + Plan note Diagnostic Tests Pending * PSA Total 05/27/24 Future Scheduled Tests Radiology* US PVR Lower EXT Complete Bilat 11/20/23 [facility] 12-03-2024 Evaluation note* Diagnosis Onset Date Resolution Status Admit Date Anemia of renal disease acute D ec2023 4:21pm BMI 34.0-34.9,adult acute Decem rohit 2023 4:21pm BPH loc w urin obs/LUTS acute D ec2023 4:21pm Chronic kidney disease, stag e 3b acute May 07 4:21pm 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 acute De cember 2023 4:21pm Gout acute May 07, 2024 4:21pm Hypertensive nephropathy acute May 07, 2024 4:21pm Hypomagnesemia acute May 072023 4:21pm [facility] Work Phone: 1(459) 146-952611-19-2024 [place] [address] EGD Procedure Note Signed Patient: Myra Pickard SR MR#: [id number] : 1965 Acct:[id number] Age/Sex: 58 / M Adm Date: 4 Loc: Room: Type: [facility] Attending Dr: Mike Burleson MD Copies to: DO Mike Guzman MD~ Esophagogastroduodenoscopy Date/Provider Date: 04/23/2024 Mike Burleson MD Narrative Narrative: Procedure: EGD with biopsy Indication: 58-year-old male presents for EGD to evaluate abnormal imaging findings Pre-operative diagnosis: Abnormal imaging findings of the abdomen Post-operative diagnosis: Abnormal imaging findings of the abdomen Sedation: propofol per anesthesia dept O2 oximetry, hemodynamic monitoring was performed pre, during, and post procedure. Patient was identified, H&P completed, patient was given full explanation of the procedure as well as associatedrisks and written consent wasobtained prior to procedure. Patient expressed complete understanding of the procedure as well as alternatives to the procedure and to anesthesia and agreed to proceed with the procedure as indicated. Patient was immediately reassessed prior to IV sedation. Following IV sedation, patient was placed in the left lateral decubitus position. Bite block was inserted. Endoscope was passed through the mouth, into the esophagus. Endoscope was advanced into the stomach through the pyloricchannel and into the 2nd portion of duodenum by direct visualization. Endoscopewas withdrawn into the stomach and retroflexion was performed. The endoscope was straightened,the stomach was decompressed. Endoscope was withdrawn into the esophagus then completely removed with the findings as below. Findings: DUODENUM: bulb and descending portion appeared normal. STOMACH: There were several thickened folds running from the fundus to the distal body/start of theantrum. Overall the mucosa appeared atrophic without the typical glandular pattern. Biopsies were obtained from the thickened folds,bottle 1-rule out H. pylori. Rule out malignancy. No overt gastritis was observed. ESOPHAGUS: Diaphragmatic hiatus was 39 cm from incisors. GE junction (upper margin of gastric folds) was at 39 cm from incisors. Squamocolumnar junction was at 39 cm from incisors. Mildly irregular Z-line. Biopsy taken: Yes Complications: None EBL: minimal Recommendations: -Follow up pathology -Resume normal diet -Continue omeprazole 40 mg daily -Restart Plavix tomorrow -Follow up in the office pending path -Follow up with PCP Following a period of recovery, patient was seen and given full explanation of the procedure. Patient tolerated the procedure well and will be discharged in satisfactory, stable condition. Mike Burleson MD Documented By: Mike Burleson MD 04/23/24 1350 Signed By: 04/23/24 1358 [facility]11-19-2024 [place] [address] Gastroenterology H&P Signed Patient: Myra Pickard SR MR#: [id number] : 1965 Acct:[id number] Age/Sex: 58 / M Adm Date: 4 Loc: Room: Type: [facility] Attending Dr: Mike Burleson MD Copies to: DO Mike Guzman MD~ Date of Service: 04/23/2024 HISTORY & PHYSICAL: Patient's history with special attention to the cardiovascular, pulmonary systems and the current problem was reviewed with the patient immediately prior to the procedure. Present medications and doses reviewed in the EMR. Allergies and pertinent laboratory tests were also re viewedat this time in the EMR. The physical [...] MD Documented By: Mike Burleson MD 04/23/24 9904 Signed By: 04/23/24 9547 [facility]11-01-2024 Evaluation note* Author Cat Byrd [facility] Authored April 05, 2024 1 :29pm Sooner if needed, the ER if concerns,The above note written by Cat Byrd LPN acting as human recorder, note dictated by Dr. Teresa Lynch [facility] Work Phone: 1(655) 836-820210-18-2024 Miscellaneous Notes* Telephone Encounter - Moncho Stevenson - 03/22/2024 11:24 PM EDT Contract: 198 - Re: high Blood Sugars . Called Dr. Tam and connected to caller documented in this encounterACMC Healthcare SystemIZI Medical Products [id number] Telephone encounter Note* Telephone Encounter - Moncho Stevenson - 03/22/2024 11:24 PM EDT Contract: 198 - Re: high Blood Sugars . Called Dr. Tam and connected to caller [facility] [id number] History of Present illness Narrative* Guero Tam, - 03/19/2024 5:25 PM EDT Patient Name: Myra Pickard Date of : 1965 Date of Service: 03/19/2024 Facility: [facility] Type of Visit: Skilled Visit Subjective Myra Pickard is a 58 y.o. male seen today at [facility] facility for No chief complaint on file. [...] polyneuropathy associated with type 2 diabetes mellitus ([facility]) 2. Encounter for orthopedic aftercare following surgical [...] BY: Guero Tam DO documented [facility]10-[facility] History of Present illness Narrative* Guero Tam DO - 03/15/2024 6:27 PM EDT Patient Name: Myra Pickard Date of : 1965 Date of Service: 03/15/2024 Facility: [facility] Type of Visit: Admission H&P Subjective Myra Pickard is a 58 y.o. male seen today at [facility] facility for admission for therapies. Myra returns to [facility] from [facility] where he was admitted for altered [...] polyneuropathy associated with type 2 diabetes mellitus ([facility]) 2. Disorientation 3. Other abnormalities of gait and mobility 4. Status post partial amputation of right foot ([facility]) 5. Atherosclerosis of [place] coronary artery of [place] heart without angina pectoris 6. Atrial fibrillation ([facility]) 7. Primary hypertension Admit to [facility] for therapies. Plan to do therapy and then go home in a few weeks. Continue current regimen. Full code. Good rehab potential. ELECTRONICALLY SIGNED BY: Guero Tam DO documented in this encounterGlenbe[facility] Hospital10-11-2024 Miscellaneous Notes* Telephone Encounter - Nancy Kim CMA - 03/15/2024 10:10 AM EDT Patients spouse called in to question about getting a aids nurse sock. Stated patient is currently isin a care facility. Please advise and call spouse. documented in this encounterG[facility]10-11-2024 Telephone encounter Note* Telephone Encounter - Nancy Kim CMA - 03/15/2024 10:10 AM EDT Patients spouse called in to question about getting a aids nurse sock. Stated patient is currently [facility]. Please advise and call spouse. [facility] [employer] [id number] Discharge summary Author Remberto Ervin [facility] March 13, 2024 9:46am Note Date/Time March 13, 2024 9: 46am [facility] [address] [place] [address] Discharge Summary Signed Patient: Myra Pickard SR MR#: [id number] : 1965 Acct:[id number] Age/Sex: 58 / M Adm Date: 4 Loc: Room: [address] [place] [address]: Remberto Ervin MD Copies to: [...] colleague in collaboration with other specialists and patient support associate. Patient came in with a change in [...] ask her primary care doctor to obtain [facility] record entirely to address abnormalities seen on labs and imagingthat I have and have not addressed during this hospitalization, follow-up on pending blood work, imaging and pathology is if available and to follow-up on needed medical care in the outpatient setting. Time Spent with Patient Time spent providing/coordinating discharge services (# min): 45 Discharge Plan Discharge Plan Patient Disposition: [facility] Facility Activity: No Activity Restriction Additional Instructions: I may not have addressed or treated all of your medical illnesses or the abnormal blood work or imaging studies during this hospitalization. Please ask your primary care provider to obtain [facility] records entirely to follow up on all of the abnormal physical, laboratory, and imaging findings that I have not addressed. Please return back to the emergency room or seek medical attention if your symptoms worsen or return. Discharging you from [facility] does not mean that your medical care [...] Instructions: As directed (DME) FreeStyle Jigar 2 Ensign Misc See Rx Instructions .ROUTE Qty: 1 [...] 16:02 Blood Culture Stat 03/10/24 06:49 NMDA [J-uywkos-L-Aspartate IgG, Ser] IN AM Preliminary micro results [...] % (Auto) 66.7, Lymph % (Auto) 14.7, O'Brien % (Auto) 14.4, Eos % (Auto) 3.0, Baso % (Auto) 1.2, Nucleat RBC Rel Count 0.1, Neut # (Auto) 4.0, Lymph # (Auto) 0.9 L, O'Brien # (Auto) 0.9 H, Eos # (Auto) [...] Glucose 230 Documented By: Remberto Ervin MD 03/13/24 0943 Signed By: <Electronically signed by Remberto Ervin MD> 03/13/24 0946 [facility] Work Phone: 1(109) 655-300910-08-2024 Progress note Author João Powell [facility] March 12, 2024 1:46pm Note Date/Time March 12, 2024 1: 34pm [facility] [address] [place] [address] Hospitalist Progress Note Signed Patient: Myra Pickard SR MR#: [id number] : 1965 Acct:[id number] Age/Sex: 58 / M Adm Date: 4 Loc: Room: [address] [place] [address] Type: ADM IN Attending Dr: João Powell [...] 2 units TID.WM.HS SATISH Administration Protocol Ipratropium [place]kmont 0.5 mg 03/08/24 20:00 03/12/24 09:34 Ipratropium [place] 0.5 Mg/2.5 Ml Vial.Neb INHALATION 03/08/25 19:59 [...] signed by João Powell MD> 03/12/24 1346 [facility] Work Phone: 1(282) 930-586810-08-2024 Progress note Author Mike Burleson [facility] March 12, 2024 9:28am Note Date/Time March 12, 2024 9: 28am [facility] [address] [place] [address] Gastroenterology PN Signed Patient: Myra Pickard SR MR#: [id number] : 1965 Acct:[id number] Age/Sex: 58 / M Adm Date: 4 Loc: Room: [address] [place] [address] Type: ADM IN Attending Dr: João Powell [...] 1 units TID.WM.HS SATISH Administration Protocol Ipratropium [place] 0.5 mg 03/08/24 20:00 03/12/24 06:05 Ipratropium [place] 0.5 Mg/2.5 Ml Vial.Neb INHALATION 03/08/25 19:59 [...] <Electronically signed by Mike Burleson MD> 03/12/24927 [facility] Work Phone: 1(473) 554-773810-07-2024 Progress note Author João Powell [facility] March 11, 2024 1:38pm Note Date/Time March 11, 2024 1: 35pm [facility] [address] [place], [place] [address] Hospitalist Progress Note Signed Patient: Myra Pickard MR#: [id number] : 1965 Acct:[id number] Age/Sex: 58 / M Adm Date: 4 Loc: 3T Room: [address] [place] [address] Type: ADM IN Attending Dr: João Powell [...] 11:59 Not Given TID.WM.HS SATISH Protocol Ipratropium [place]kmont 0.5 mg 03/08/24 20:00 03/11/24 10:15 Ipratropium [place] 0.5 Mg/2.5 Ml Vial.Neb INHALATION 03/08/25 19:59 [...] following, obtain MRI abdomen and MRCP -PT tete recjoe appreciated Spoke to his at bedside last afternoon. Will update family today. Time Spent With Patient (min): 45 Documented By: João Powell MD 03/11/241333 Signed By: <Electronically signed by João Powell MD> 03/11/247 [facility] Work Phone: 1(479) 939-949510-06-2024 Progress note Author Luther Dozier [facility] March 10, 2024 11:31am Note Date/Time March 10, 2024 11 :31am [facility] [address] [place] [address] Neurology Progress Note Signed Patient: Myra Pickard SR MR#: [id number] : 1965 Acct:[id number] Age/Sex: 58 / M Adm Date: 4 Loc: Room: [address] [place] [address] Type: ADM IN Attending Dr: João Powell [...] Therapy Recommendations: PT Recommendations PT Recommended Discharge [facility] Facility,Inpatient Rehab Unit Location PT Recommended Services [...] of breathing. He is alert. Oriented to [facility], March. Speech is fluent and nondysarthric. Pupils [...] signed by Luther Dozier DO> 03/10/24 1131 [facility] Work Phone: 1(135) 926-989310-06-2024 Consult note Author Mike Burleson [facility] March 10, 2024 11:29am Note Date/Time March 10, 2024 11 :29am [facility] [address] [place] [address] Gastroenterology Consult Note Signed Patient: Myra Pickard SR MR#: [id number] : 1965 Acct:[id number] Age/Sex: 58 / M Adm Date: 4 Loc: Room: [address] [place] [address] Type: ADM IN Attending Dr: João Powlel MD Copies to: DO Mike Guzman MD [...] Denies easy bruising Allergic/Immunologic Allergic/Immunologic: Denies wheezing [facility] Medical History Vitamin D deficiency Spondylosis of [...] mass Atrial fibrillation Atherosclerotic heart disease of match-e[place]be[place] coronary artery with unspecified angina pectoris Anxiety [...] Use Type: None Social History Comments: at [facility] for rehab Meds Medications and Allergies Allergies [...] [History Confirmed 03/08/24] flash glucose scanning reader (UlmonStyle Jigar 2 Ensign) #1 ea 12/28/23 [Rx Confirmed 03/08/24] flash [...] % (Auto) 83.4 Lymph % (Auto) 4.9 O'Brien % (Auto) 10.6 Eos % (Auto) 0.8 Baso % (Auto) 0.3 Nucleat RBC Rel Count 0.2 Neut # (Auto) 11.4 H Lymph # (Auto) 0.7 L O'Brien # (Auto) 1.5 H Eos # (Auto) [...] MPV Neut % (Auto) Lymph % (Auto) O'Brien % (Auto) Eos % (Auto) Baso % (Auto) Nucleat RBC Rel Count Neut # (Auto) Lymph # (Auto) O'Brien # (Auto) Eos # (Auto) Baso # [...] will follow Documented By: Mike Burleson MD 03/10/241124 Signed By: <Electronically signed by Mike Burleson MD> 03/10/24 1120 [facility] Work Phone: 1(995) 307-349810-06-2024 Progress note Author João Powell [facility] March 10, 2024 10:14am Note Date/Time March 10, 2024 10 :14am [facility] [address] [place] [address] Hospitalist Progress Note Signed Patient: Myra Pickard SR MR#: [id number] : 1965 Acct:[id number] Age/Sex: 58 / M Adm Date: 4 Loc: Room: [address] [place] [address] Type: ADM IN Attending Dr: João Powell [...] IV 03/10/25 09:22 DAILY PRN Hypomagnesemia Ipratropium [place]kmont 0.5 mg 03/08/24 20:00 03/10/24 05:25 Ipratropium [place] 0.5 Mg/2.5 Ml Vial.Neb INHALATION 03/08/25 19:59 [...] signed by João Powell MD> 03/10/24 1014 [facility] Work Phone: 1([phone]) 866-283010-05-2024 Progress note Author João Powell [facility] March 09, 2024 11:32am Note Date/Time March 09, 2024 10 :57am [facility] [address] [place] [address] Hospitalist Progress Note Signed Patient: Myra Pickard SR MR#: [id number] : 1965 Acct:[id number] Age/Sex: 58 / M Adm Date: 4 Loc: 3T Room: [address] [place] [address] Type: ADM IN Attending Dr: João Powell [...] 81 Mg Tab.Chew PO 03/09/25 08:59 DAILY [facility] Atorvastatin Calcium 80 mg 03/09/24 09:00 Atorvastatin 80 Mg Tablet PO 03/09/25 08:59 DAILY SATISH Ferrous Sulfate 324 mg 03/08/24 20:00 03/08/24 22:52 Ferrous Sulfate 324 Mg Tablet.Dr PO 03/08/25 19:59 324 mg Q48H SATISH Administration Heparin Sodium (Porcine) 5,000 unit 03/08/24 22:00 03/09/24 05:31 Heparin 5,000 Unit/Ml Vial SUBCUT 03/08/25 21:59 5,000 unit Q8HR SATISH Administration Ipratropium [place] 0.5 mg 03/08/24 20:00 03/09/24 09:14 Ipratropium [place] 0.5 Mg/2.5 Ml Vial.Neb INHALATION 03/08/25 19:59 [...] 40 mg 03/09/24 09:00 Pantoprazole 40 Mg Tablet.Dr PO 03/09/25 08:59 DAILY SATISH Sodium Chloride 0 ml 03/08/24 14:21 03/08/24 [...] signed by João Powell MD> 03/09/24 1132 [facility] Work Phone: 1([phone] 467-342910-05-2024 Consult note Author Job James [facility] March 09, 2024 11:12am Note Date/Time March 09, 2024 11 :10am [facility] [address] [place], [place] [address] Psychiatry Consult Note Signed Patient: Myra Pickard SR MR#: [id number] : 1965 Acct:[id number] Age/Sex: 58 / M Adm Date: 4 Loc: 3T Room: [address] [place] [address] Type : ADM IN Attending Dr: João [...] more like retaliation Insight: fair Judgment: fair [facility] Medical History Vitamin D deficiency Spondylosis of [...] mass Atrial fibrillation Atherosclerotic heart disease of match-e-be[place] coronary artery with unspecified angina pectoris Anxiety [...] Use Type: None Social History Comments: at [facility] [place] for rehab Meds Medications and Allergies Allergies [...] [History Confirmed 03/08/24] flash glucose scanning reader (Natanael Ulien Jigar 2 Ensign) #1 ea 12/28/23 [Rx Confirmed 03/08/24] flash glucose sensor (UlmonStyle Jigar 2 Sensor kit) #1 ea 12/28/23 [...] Appearance Clear Urine pH 5.0 Ur Specific [place] 1.013 Urine Protein Negative Urine Glucose (UA) [...] signed by Job James MD> 03/09/24 1112 [facility] Work Phone: 1([phone] 456-121110-05-2024 Consult note Author Luther Dozier [facility] March 09, 2024 10:59am Note Date/Time March 09, 2024 9: 07am [facility] [address] [place] [address] Neurology Consult Note Signed Patient: Myra Pickard MR#: [id number] : 1965 Acct:[id number] Age/Sex: 58 / M Adm Date: 4 Loc: Room: [address] [place] [address] Type: ADM IN Attending Dr: João Powell MD Copies to: DO Teresa Freeman DO Mohamad Akil, MD~ HPI Consult Date: 03/09/24 [employer] 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: Luther Dozier DO [facility] Medical History Vitamin D deficiency Spondylosis of [...] mass Atrial fibrillation Atherosclerotic heart disease of match-e-be[place] coronary artery with unspecified angina pectoris Anxiety [...] Use Type: None Social History Comments: at [facility] for rehab Meds Medications and Allergies Allergies [...] [History Confirmed 03/08/24] flash glucose scanning reader (Natanael Ulien Jigar 2 Ensign) #1 ea 12/28/23 [Rx Confirmed 03/08/24] flash glucose sensor (UlmonStyle Jigar 2 Sensor kit) #1 ea 12/28/23 [...] Marks Jr., D.O.03/08/2024 2:41 PM Dictation Location: [place] [address] Chest X-Ray 03/08/24 17:03 IMPRESSION: No acute process. Impression dictated by: Sudeep Lind M.D.03/08/2024 6:08 PM Dictation Location: [place] [address] Brain MRI 03/08/24 17:48 IMPRESSION: No acute intracranial process. Impression dictated by: Sudeep Lind M.D.03/08/2024 8:10 PM Dictation Location: [place] [address] Assessment/Plan (1) Altered mental status: Qualifiers: Altered mental status type: unspecified Qualified Code(s): R41.82 - Altered mental status, unspecified Plan CONSULT REASON: Sudden AMS, stroke ruled out HPI: 58-year-old man. History that includes coronary artery disease with PCI, peripheral vascular disease, type 2 diabetes, hypertension, heart failure, diabetic neuropathy, status post recent below the knee amputation at [facility]. He had just been here several days [...] <Electronically signed by Luther Dozier DO> 03/09/24 3000 [facility] Work Phone: 1([phone] 120-997810-05-2024 History and physical note Author João Powell [facility] March 08, 2024 10:05pm Note Date/Time March 08, 2024 7: 19pm [facility] [address] [place] [address] Hospitalist H&P Signed Patient: Myra Pickard SR MR#: [id number] : 1965 Acct:[id number] Age/Sex: 58 / M Adm Date: 4 Loc: Room: [address] [place] [address] Type: ADM IN Attending Dr: João Powell [...] neuropathy status post right BKA recently at [facility], here today for altered mental status. History [...] neck were all negative. ED staff contacted [place] neuro stroke team and patient was deemed not eligible [facility]. Patient is being admitted under the hospitalist [...] of Systems Unobtainable due to mental status [facility] Medical History Vitamin D deficiency Spondylosis of [...] mass Atrial fibrillation Atherosclerotic heart disease of match-[place]-be[place] coronary artery with unspecified angina pectoris Anxiety [...] Use Type: None Social History Comments: at [facility] for rehab Meds Medications and Allergies Allergies [...] [History Confirmed 03/08/24] flash glucose scanning reader (Natanael Ulien Jigar 2 Ensign) #1 ea 12/28/23 [Rx Confirmed 03/08/24] flash glucose sensor (UlmonStyle Jigar 2 Sensor kit) #1 ea 12/28/23 [...] % (Auto) 13.1 % (.) 03/08/24 14:15 O'Brien % (Auto) 13.2 % (.) 03/08/24 14:15 Eos % (Auto) 3.3 % (.) 03/08/24 14:15 Baso % (Auto) 1.0 % (.) 03/08/24 14:15 Nucleat RBC Rel Count 0.2 /100 WBC (0-0.5) 03/08/24 14:15 Neut # (Auto) 6.2 x10E3/uL (1.8-7.7) 03/08/24 14:15 Lymph # (Auto) 1.2 x10E3/uL (1.00-4.8) 03/08/24 14:15 O'Brien # (Auto) 1.2 x10E3/uL (0.0-0.8) H 03/08/24 [...] pH 5.0 (5.0-9.0) 03/08/24 16:11 Ur Specific [place] 1.013 (1.001-1.030) 03/08/24 16:11 Urine Protein Negative [...] By: <Electronically signed by João Powell MD> 03/08/242204 [facility] Work Phone: 1([phone]) 230-248110-01-2024 Progress note Author Ltuher Dozier [facility] March 05, 2024 2:28pm Note Date/Time March 05, 2024 2: 22pm [facility] [address] [place] [address] Neurology Progress Note Signed Patient: Myra Pickard SR MR#: [id number] : 1965 Acct:[id number] Age/Sex: 58 / M Adm Date: 4 Loc: Room: [address] [place] [address] Type: ADM IN Attending Dr: João Powell [...] Therapy Recommendations: OT Recommendations OT Recommended Discharge [facility] Facility Location PT Recommendations PT Recommended Discharge [facility] Facility Location PT Recommended Services at Physical [...] the neuropathy Documented By: Luther Dozier DO 03/05/241419 Signed By: <Electronically signed by Luther Dozier DO> 03/05/248 [facility] Work Phone: 1([phone]) 508-857510-01-2024 Progress note Author João Powell [facility] March 05, 2024 2:17pm Note Date/Time March 05, 2024 2: 17pm [facility] [address] [place] [address] Hospitalist Progress Note Signed Patient: Myra Pickard SR MR#: [id number] : 1965 Acct:[id number] Age/Sex: 58 / M Adm Date: 4 Loc: Room: [address] [place] [address] Type: ADM IN Attending Dr: João Powell [...] 1,000 Ml IV 03/03/25 17:59 60 mls/hr .[id number] SATISH Administration Ferric Sodium Gluconate 110 mls @ 110 mls/hr 03/05/24 12:00 03/05/24 13:18 Complex 125 mg/ Sodium IV 03/07/24 09:01 110 mls/hr Chloride QAM SATISH Administration Insulin Aspart 0 units 03/04/24 12:00 03/05/24 11:41 Insulin Aspart 300 Units/3 Ml Insuln.Pen SUBCUT 03/04/25 11:59 Not Given TID.WM.HS SATISH Protocol Ipratropium [place] 0.5 mg 03/04/24 09:00 03/05/24 13:59 Ipratropium [place] 0.5 Mg/2.5 Ml Vial.Neb INHALATION 03/04/25 08:59 [...] 45 Documented By: João Powell MD 03/05/24 1409 Signed By: <Electronically signed by João Powell MD> 03/05/24 1411 [facility] Work Phone: 1(335) 504-798210-01-2024 Consult note Author Mike Burleson [facility] March 05, 2024 1:35pm Note Date/Time March 05, 2024 9: 32am [facility] [address] [place] [address] Gastroenterology Consult Note Signed Patient: Myra Pickard MR#: [id number] : 1965 Acct:[id number] Age/Sex: 58 / M Adm Date: 4 Loc: Room: [address] [place] [address] Type: ADM IN Attending Dr: João Powell [...] Hematologic/Lymphatic: Denies easy bruising and Denies lymphadenopathy [facility] Medical History Vitamin D deficiency Spondylosis of [...] mass Atrial fibrillation Atherosclerotic heart disease of match-e-be[place] coronary artery with unspecified angina pectoris Anxiety [...] Use Type: None Social History Comments: at [facility] for rehab Meds Medications and Allergies Allergies [...] 12/25/23[Rx Confirmed 03/03/24] flash glucose scanning reader (Eka Systemsyle Jigar 2 Ensign) #1 ea 12/28/23 [Rx Confirmed 03/03/24] flash glucose sensor (UlmonStyle Jigar 2 Sensor kit) #1 ea 12/28/23 [...] MPV Neut % (Auto) Lymph % (Auto) O'Brien % (Auto) Eos % (Auto) Baso % (Auto) Nucleat RBC Rel Count Neut # (Auto) Lymph # (Auto) O'Brien # (Auto) Eos # (Auto) Baso # [...] Blood Type Recheck Antibody Screen Negative Crossmatch ([facility]) See Detail 03/04/24 03/04/24 03/04/24 13:07 14:29 16:32 Corrected WBC Uncorrected WBC Count RBC Hgb Hct MCV MCH MCHC RDW Plt Count MPV Neut % (Auto) Lymph % (Auto) O'Brien % (Auto) Eos % (Auto) Baso % (Auto) Nucleat RBC Rel Count Neut # (Auto) Lymph # (Auto) O'Brien # (Auto) Eos # (Auto) Baso # [...] Type Recheck O Positive Antibody Screen Crossmatch ([facility]) 03/04/24 03/05/24 03/05/24 20:45 06:11 06:54 Corrected WBC 8.3 Uncorrected WBC Count 8.3 RBC 3.83 L Hgb 8.6 L Hct 26.8 L MCV 70.1 L MCH 22.4 L MCHC 31.9 L RDW 21.4 H Plt Count 361 MPV 7.9 Neut % (Auto) 67.6 Lymph % (Auto) 16.1 O'Brien % (Auto) 12.4 Eos % (Auto) 2.8 Baso % (Auto) 1.1 Nucleat RBC Rel Count 0.0 Neut # (Auto) 5.6 Lymph # (Auto) 1.3 O'Brien # (Auto) 1.0 H Eos # (Auto) [...] evaluation. -Recommend obtaining prior GI workup from [facility] -I recommend continuing his PPI -Recommend avoiding [...] follow-up with his previous GI team at [facility] Thank you for this consult, little further to add from a GI standpoint. I will peripherally follow pending discharge. Documented By: Mike Burleson MD 03/05/24931 Signed By: <Electronically signed by Mike Burleson MD> 03/05/24 2095 [facility] Work Phone: 1([phone]) 412-908809-30-2024 Consult note Author Luther Dozier [facility] March 04, 2024 12:57pm Note Date/Time March 04, 2024 12:57pm [facility] [address] [place] [address] Neurology Consult Note Signed Patient: Myra Pickard SR MR#: [id number] : 1965 Acct:[id number] Age/Sex: 58 / M Adm Date: 4 Loc: Room: [address] [place] [address] Type: ADM INOo Attending Dr: João Powell MD Copies to: DO Teresa Freeman DO Mohamad Akil, MD~ HPI Consult Date: 03/04/24 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[employer] 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: Luther 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 DO [facility] Medical History Vitamin D deficiency Spondylosis of [...] mass Atrial fibrillation Atherosclerotic heart disease of match-e-be-n[place] coronary artery with unspecified angina pectoris Anxiety [...] Use Type: None Social History Comments: at [facility] for rehab Meds Medications and Allergies Allergies [...] 12/25/23[Rx Confirmed 03/03/24] flash glucose scanning reader (Natanael Ulien Jigar 2 Ensign) #1 ea 12/28/23 [Rx Confirmed 03/03/24] flash glucose sensor (UlmonStyle Jigar 2 Sensor kit) #1 ea 12/28/23 [...] Sudeep Lind M.D.03/03/2024 3:05 PM Dictation Location: [facility] Abdomen/Pelvis CT 03/03/24 14:19 IMPRESSION: No acute findings. Moderate constipation. Impression dictated by: Sudeep Lind M.D.03/03/2024 3:01 PM Dictation Location: [facility] 03/03/24 16:59 IMPRESSION: No acute findings. Impression dictated by: Sudeep Lind M.D.03/03/2024 5:50 PM Dictation Location: [facility] Assessment/Plan (1) Syncope: Qualifiers: Syncope type: unspecified Qualified Code(s): R55 - Syncope and collapse Plan CONSULT REASON: Syncope HPI: 58-year-old man. Significant bodily vasculopathy, probably secondary to diabetes. History of coronary artery disease requiring percutaneous intervention, peripheral vascular disease, type 2 diabetes, hypertension, severediabetic polyneuropathy, nonhealing right lower extremity wounds now status postright below the knee amputation about 3 weeks ago at [facility]. He was feeling lightheaded every time he [...] signed by Luther Dozier DO> 03/04/24 1257 [facility] Work Phone: 1(657) 770-662609-30-2024 Progress note Author João Powell [facility] March 04, 2024 11:53am Note Date/Time March 04, 2024 11:46am [facility] [address] [place] [address] Hospitalist Progress Note Signed Patient: Myra Pickard SR MR#: [id number] : 1965 Acct:[id number] Age/Sex: 58 / M Adm Date: 4 Loc: 3T Room: [address] [place] [address] Type: ADM INOo Attending Dr: João Powell [...] 1,000 Ml IV 03/03/25 17:59 60 mls/hr .[id number] SATISH Administration Sodium Chloride 500 mls @ 20 mls/hr 03/04/24 09:29 0.9 % Sodium Chloride IV 03/05/24 09:28 PROTOCOL PRN BLOOD TRANSFUSION Ipratropium [place] 0.5 mg 03/04/24 09:00 03/04/24 10:47 Ipratropium [place] 0.5 Mg/2.5 Ml Vial.Neb INHALATION 03/04/25 08:59 [...] 03/04/24 09:00 03/04/24 09:10 Pantoprazole 40 Mg Tablet.Dr PO 03/04/25 08:59 Not Given BID SATISH [...] Syringe IV-PUSH 03/03/25 16:59 Not Given Q8H [facility] A&P - Hospitalist Assessment/Plan (1) Restless legs [...] <Electronically signed by João Powell MD> 03/04/24 1150 [facility] Work Phone: 1(612) 178-288409-30-2024 History and physical note Author João Powell [facility] March 03, 2024 10:48pm Note Date/Time March 03, 2024 5:55pm [facility] [address] [place] [address] Hospitalist H&P Signed Patient: Myra Pickard SR MR#: [id number] : 1965 Acct:[id number] Age/Sex: 58 / M Adm Date: 4 Loc: 3T Room: [address] [place] [address] Type: ADM INOo Attending Dr: João Powell [...] neuropathy status post right BKA recently at [facility]. He presents today with episodes of lightheadedness [...] negative unless noted below or in HPI [facility] Medical History Vitamin D deficiency Spondylosis of [...] mass Atrial fibrillation Atherosclerotic heart disease of match-e-be[place] coronary artery with unspecified angina pectoris Anxiety [...] 12/25/23[Rx Confirmed 03/03/24] flash glucose scanning reader (UlmonStyle Jigar 2 Ensign) #1 ea 12/28/23 [Rx Confirmed 03/03/24] flash [...] % (Auto) 18.2 % (.) 03/03/24 14:00 O'Brien % (Auto) 11.3 % (.) 03/03/24 14:00 Eos % (Auto) 3.2 % (.) 03/03/24 14:00 Baso % (Auto) 1.7 % (.) 03/03/24 14:00 Nucleat RBC Rel Count 0.2 /100 WBC (0-0.5) 03/03/24 14:00 Neut # (Auto) 4.7 x10E3/uL (1.8-7.7) 03/03/24 14:00 Lymph # (Auto) 1.3 x10E3/uL (1.00-4.8) 03/03/24 14:00 O'Brien # (Auto) 0.8 x10E3/uL (0.0-0.8) 03/03/24 14:00 [...] pH 5.0 (5.0-9.0) 03/03/24 14:35 Ur Specific [place] 1.009 (1.001-1.030) 03/03/24 14:35 Urine Protein Negative [...] <Electronically signed by João Powell MD> 03/03/24 2246 [facility] Work Phone: 1(745) 395-481709-26-2024 History of Present illness Narrative* Mike Montes [...] up Removal of toshia next week at [facility] and sizing for prosthesis.. [facility] History of Present illness Narrative* Guero Tam DO - 02/28/2024 2:51 PM EDT Patient Name: Myra Pickard Date of : 1965 Date of Service: 02/28/2024 Facility: [facility] Type of Visit: Skilled Visit Subjective Myra Pickard is a 58 y.o. male seen today at [facility] facility for therapy visit. Myra is in [...] polyneuropathy associated with type 2 diabetes mellitus ([facility]) 4. Other abnormalities of gait and mobility 5. Muscle spasm I'm going to add baclofen 10 mg Q6hrs prn spasm. D/C januvia since he is on Trulicity. Continue therapy and other orders as directed. All medications reviewed and are medically necessary. ELECTRONICALLY SIGNED BY: Guero Tam DO documented in this encounterACMC Healthcare SystemIZI Medical Products [id number] History of Present illness Narrative* Guero Tam [...] and grafts Fibromyalgia Atherosclerotic heart disease of match-e-be-nash-she-wish band coronary artery without angina pectoris GERD glaucoma Gout Hyperlipidemia Essential hypertension Migraine Polyneuropathy Obstructive and reflux uropathy RLS Osteoarthritis Dorsalgia Benign prostatic hyperplasia with lower urinary tract symptoms Bilateral carpal tunnel syndrome Heart failure unspecified Nicotine dependence of cigarettes Plan: Admit to [facility] for therapies. continue medications. Full code Renew oxycodone 10 mg Q6hrs prn Good rehab potential. Discharge to home when able to safely discharge documented in this encounterACMC Healthcare [facility] Discharge instructions Patient Education 02/21/2024 14:36:02 [...] return to a sport or hobby. Some companies design adaptive equipment for this purpose. Talk [...] to cope with stress. General instructions Take sksz-jop-qrurpmb and prescription medicines only as told by [...] department or: Call your local emergency services (818 in the [place] Call a suicide crisis helpline, such as the National Suicide Prevention Lifeline at or 771 in the [place] This is open 24 hours a day in the [place] Text the Crisis Text Line at 844349 (in the [place] Summary It will take [...] provider. Document Revised: 12/15/2021 Document Reviewed: 10/07/2021 [employer] Patient Education 2023 [employer]. Follow Up Care 02/09/2024 10:35:38 With:TERESA LYNCH DO, FAM Address: [address] [place] [id number]- When: Unknown With:Mike Montes MD Address: [address] [place] [address]- When:2 weeks Comments:Call for followup appointment [facility] 09-18-2024 NoteDischarge Summary Admission and Discharge [...] Contact Information TERESA LYNCH DO, FAM [address] [place] [address]- Additional Instructions: Simon HERRERA, Mike Weathers Within 2 weeks [address] [place] [address]- Additional Instructions: Call for followup appointment Patient Education Living With [facility]putationGu[facility]sey [facility] HospitalComment on above:Result Comment: Electronically Signed By: Raulito Gilliland DO\.br\Date and Time Signed: 02/21/24 15:01 [id number] Evaluation + Plan noteExtracted from: Title:Discharge Note Author:Raulito Gilliland DO Date:02/21/24 Discharge To, Anticipated II [...] mg, SubCutaneous, qWeek With When Contact Information TEREAS LYNCH DO, [facility] [address] [place] [address]- Additional Instructions: Simon HERRERA, Mike FMary Within 2 weeks [address] [place] [address]- Additional Instructions: Call for followup appointment Living [facility] an Amputation Extracted from: Title:APSO Note Author:Raulito Gilliland DO Ankur e:02/21/24 Patient is a 58-year-old mal e with past medical history of TX/CAD, heart failure, GERD, HTN, COPD, insulin-dependent type [...] daily to aid in wound healing Ordered: [facility] Hospital Care/Day Straight Fwd 25 Minutes 91711 2. Leukocytosis (D72.829: Elevated white blood cell [...] artery disease (I25.10: Atherosclerotic heart disease of [place] coronary artery without angina pectoris) Aspirin, atorvastatin 80 mg p.o. daily, Plavix Metoprolol, isosorbide mononitrate, Lasix 9. Tobacco abuse (Z72.0: Tobacco use) Counseled on cessation. Nicotine patch. Orders: Capillary Glucose POC CBC w/ Auto Diff Change Attending Extracted from: Title:APSO Note Author:Ben Corrigan III, DO Date:02/20/24 Patient is a 58-year-old mal e with past medical history of TX/CAD, heart failure, GERD, HTN, COPD, insulin-dependent type [...] Auto Diff CBC w/ Auto Diff eGFR [facility] Hospital Care/Day Moderate 35 Minutes 28447 2. Leukocytosis (D72.829: Elevated white blood cell count, unspecified) Likely reactive with nausea and vomiting overnight. Will continue to monitor closely. No signs of infection of surgical wound. Follow-up a.m. labs. 3. Essential hypertension (I10: Essential (primary) hypertension) Metoprolol, isosorbide mononitrate, Lasix. Well-controlled. Ordered: [facility] Hospital Care/Day Moderate 35 Minutes 23877 4. Hyperlipidemia (E78.5: Hyperlipidemia, unspecified) Statin Ordered: [facility] Hospital Care/Day Moderate 35 Minutes 20251 5. Anemia (D64.9: Anemia, unspecified) Acute on chronic. Stable postoperatively. Will continue to monitor closely Ordered: Basic Metabolic Panel CBC w/ Auto Diff [facility] Hospital Care/Day Moderate 35 Minutes 68603 6. 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 (E11.42: Type 2 diabetes mellitus with diabetic polyneuropathy) Glimepiride 2 mg p.o. twice daily, glargine 35 units nightly, lispro 5 units with meals, BGT ACHS, sliding scale insulin as needed with meals Poorly controlled. Increased glargine to 35 units nightly om 02/18 from 30 units nightly. Ordered: [facility] Hospital Care/Day Moderate 35 Minutes 39871 7. Stage 3 chronic kidney disease (N18.30: Chronic kidney disease, stage 3 unspecified) Creatinine 1.8. Baseline 1.5-1.6. Monitor closely. Ordered: Basic Metabolic Panel CBC w/ Auto Diff eGFR [facility] Hospital Care/Day Moderate 35 Minutes 98258 8. Coronary artery disease (I25.10: Atherosclerotic heart disease of [place] coronary artery without angina pectoris) Aspirin, atorvastatin 80 mg p.o. daily, Plavix Metoprolol, isosorbide mononitrate, Lasix Ordered: [facility] Hospital Care/Day Moderate 35 Minutes 37670 9. Tobacco abuse (Z72.0: Tobacco use) Counseled on cessation. Nicotine patch. Orders: oxycodone, 10 mg = 2 tab(s), Tab, Oral, q4hr PRN Pain for 5 day(s), Stop date 02/25/24 19:00:00 EDT, Routine, Start date 02/20/24 19:01:00 EDT, 02/20/24 19:01:00 EDT Extracted from: Title:APSO Note Author:HeathBen loya III, DO Date:02/19/24 Patient is a 58-year-old mal e with past medical history of TX/CAD, heart failure, GERD, HTN, COPD, insulin-dependent type [...] Basic Metabolic Panel CBC w/ Auto Diff [facility] Hospital Care/Day Moderate 35 Minutes 65319 2. Essential hypertension (I10: Essential (primary) hypertension) Metoprolol, isosorbide mononitrate, Lasix. Well-controlled. Ordered: [facility] Hospital Care/Day Moderate 35 Minutes 08514 3. Hyperlipidemia (E78.5: Hyperlipidemia, unspecified) Statin Ordered: [facility] Hospital Care/Day Moderate 35 Minutes 27658 4. Anemia (D64.9: Anemia, unspecified) Acute on chronic. Stable postoperatively. Will continue to monitor closely Ordered: CBC w/ Auto Diff [facility] Hospital Care/Day Moderate 35 Minutes 09939 5. 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 (E11.42: Type 2 diabetes mellitus with diabetic polyneuropathy) Glimepiride 2 mg p.o. twice daily, glargine 30 units nightly, lispro 5 units with meals, BGT ACHS, sliding scale insulin as needed with meals Poorly controlled. Will increase glargine to 35 units nightly. Ordered: [facility] Hospital Care/Day Moderate 35 Minutes 51061 6. Stage 3 chronic kidney disease (N18.30: Chronic kidney disease, stage 3 unspecified) Creatinine 1.7. Baseline 1.5-1.6. Monitor closely. Ordered: Basic Metabolic Panel [facility] Hospital Care/Day Moderate 35 Minutes 57472 7. Coronary artery disease (I25.10: Atherosclerotic heart disease of [place] coronary artery without angina pectoris) Aspirin, atorvastatin [...] diet, full code Extracted from: Title:APSO Note Author:Marisela HERRERA, Elan Hooker ate:02/18/24 Goal: 1. monitor BP 2. Monitor [...] artery disease (I25.10: Atherosclerotic heart disease of [place] coronary artery without angina pectoris) continue plavix [...] Pain control PT/OT discharge to rehab Ordered: [facility] Hospital Care/Day High 50 Minutes 62453 [facility] Hospital Care/Day Moderate 35 Minutes 53180 2. Essential hypertension (I10: Essential (primary) hypertension) good control continue to hold losartan continue lasix and imdur monitor BP Ordered: [facility] Hospital Care/Day High 50 Minutes 44265 [facility] Hospital Care/Day Moderate 35 Minutes 96591 3. Hyperlipidemia (E78.5: Hyperlipidemia, unspecified) continue statin Ordered: [facility] Hospital Care/Day High 50 Minutes 61881 [facility] Hospital Care/Day Moderate 35 Minutes 36723 4. Anemia (D64.9: Anemia, unspecified) Acute Blood loss anemia, possibly post surgical loss hgb has remained stable post transfusion continue to monitor CBC today Ordered: [facility] Hospital Care/Day High 50 Minutes 53320 [facility] Hospital Care/Day Moderate 35 Minutes 68115 5. 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 (E11.42: Type 2 diabetes mellitus with diabetic polyneuropathy) BGL is better controlled today compared to yesterday continue current insulin dose with sliding scale If BGl continues to be elevated during the day today, will start meal time scheduled coverage Ordered: [facility] Hospital Care/Day High 50 Minutes 78656 [facility] Hospital Care/Day Moderate 35 Minutes 72640 6. Stage 3 chronic kidney disease (N18.30: Chronic kidney disease, stage 3 unspecified) Overall renal function is stable continue to monitor Ordered: [facility] Hospital Care/Day High 50 Minutes 32561 [facility] Hospital Care/Day Moderate 35 Minutes 21140 7. Coronary artery disease (I25.10: Atherosclerotic heart disease of [place] coronary artery without angina pectoris) On home medication/ continue plavix and statin Ordered: [facility] Hospital Care/Day High 50 Minutes 43175 [facility] Hospital Care/Day Moderate 35 Minutes 78763 8. Tobacco abuse (Z72.0: Tobacco use) nicotine patch Ordered: [facility] Hospital Care/Day High 50 Minutes 68861 [facility] Hospital Care/Day Moderate 35 Minutes 96485 Orders: acetaminophen-oxycodone, 2 tab(s), Tab, Oral, [id number], Routine, Start date 02/16/24 14:00:00 EDT heparin, [...] Review [facility] Hospital Care/Day High 50 Minutes 19645 [facility] Hospital Care/Day High 50 Minutes 11947 2. Essential hypertension (I10: Essential (primary) hypertension) had to held lasix this morning due to low BP continue other home meds, Imdur, Ordered: Basic Metabolic Panel CBC w/ Auto Diff eGFR Path. Review [facility] Care/Day High 50 Minutes 91832 [facility] 50 Minutes 95365 3. Hyperlipidemia (E78.5: Hyperlipidemia, unspecified) continue statin Ordered: Basic Metabolic Panel CBC w/ Auto Diff eGFR Path. Review [facility] Hospital Care/Day High 50 Minutes 35891 [facility] High 50 Minutes 96247 4. Anemia (D64.9: Anemia, unspecified) hgb is stable post transfusion at 7.6 since patient is stable, will start heparin prophylaxis Ordered: Basic Metabolic Panel CBC w/ Auto Diff eGFR Path. Review [facility] High 50 Minutes 96051 [facility] High 50 Minutes 82485 5. 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 Review [facility] High 50 Minutes 14994 [facility] High 50 Minutes 79498 6. Stage 3 chronic kidney disease (N18.30: Chronic kidney disease, stage 3 unspecified) stable continue to monitor Ordered: Basic Metabolic Panel CBC w/ Auto Diff eGFR Path. Review [facility] Hospital Care/Day High 50 Minutes 89618 [facility] High 50 Minutes 43966 7. Coronary artery disease (I25.10: Atherosclerotic heart disease of [place] coronary artery without angina pectoris) overall stable continue plavix Ordered: Basic Metabolic Panel CBC w/ Auto Diff eGFR Path. Review [facility] Hospital Care/Day High 50 Minutes 36585 [facility] High 50 Minutes 29607 8. Tobacco abuse (Z72.0: Tobacco use) nicotine patch Ordered: Basic Metabolic Panel CBC w/ Auto Diff eGFR Path. Review [facility] Hospital Care/Day High 50 Minutes 62691 [facility] High 50 Minutes 17940 Orders: acetaminophen-oxycodone, 2 tab(s), Tab, Oral, [id number], Routine, Start date 02/16/24 14:00:00 EDT heparin, [...] Diff [facility] Hospital Care/Day High 50 Minutes 13450 2. Essential hypertension (I10: Essential (primary) hypertension) good control continue current medications Ordered: Basic Metabolic Panel CBC w/ Auto Diff [facility] Hospital Care/Day High 50 Minutes 56799 3. Hyperlipidemia (E78.5: Hyperlipidemia, unspecified) statin Ordered: Basic Metabolic Panel CBC w/ Auto Diff [facility] Hospital Care/Day High 50 Minutes 97199 4. Anemia (D64.9: Anemia, unspecified) hgb has remained stable since transfusion hgb is 7.7. i thought it should be higher than than considering that he received 2 units of PRBC. Ordered: Basic Metabolic Panel CBC w/ Auto Diff [facility] Hospital Care/Day High 50 Minutes 92231 5. 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 (E11.42: Type 2 diabetes mellitus with diabetic polyneuropathy) BGL is poorly controlled diabetic diet increase lantus to 25 units QHS accucheck achs Ordered: Basic Metabolic Panel CBC w/ Auto Diff [facility] Hospital Care/Day High 50 Minutes 92048 6. Stage 3 chronic kidney disease (N18.30: Chronic kidney disease, stage 3 unspecified) overall stable, but noted mild increase in creatinine today contiue to monitor Ordered: Basic Metabolic Panel CBC w/ Auto Diff [facility] Hospital Care/Day High 50 Minutes 70565 7. Coronary artery disease (I25.10: Atherosclerotic heart disease of [place] coronary artery without angina pectoris) Plavix for secondary prophylaxis Ordered: Basic Metabolic Panel CBC w/ Auto Diff [facility] Hospital Care/Day High 50 Minutes 78176 8. Tobacco abuse (Z72.0: Tobacco use) nicotine patch Ordered: Basic Metabolic Panel CBC w/ Auto Diff [facility] Hospital Care/Day High 50 Minutes 73794 Orders: insulin glargine, 25 unit(s), Injection-Insulin, SubCutaneous, [...] dilaudid PT/OT appreciate Vascular team recommendations Ordered: [facility] Hospital Care/Day High 50 Minutes 00675 2. Essential hypertension (I10: Essential (primary) hypertension) Better compared to yesterday. continue current management currently on lasix, losartan, metoprolol and imdur. seems to be too much BP meds since BP is about 120s. continue to monitor BP. Ordered: [facility] Hospital Care/Day High 50 Minutes 31903 3. Hyperlipidemia (E78.5: Hyperlipidemia, unspecified) continue statin Ordered: [facility] Hospital Care/Day High 50 Minutes 88946 4. Anemia (D64.9: Anemia, unspecified) Acute on chronic anemia due to surgical intervention hgb has remained stable since transfusion continue to monitor h and h Ordered: [facility] Hospital Care/Day High 50 Minutes 22872 5. 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 continue lantus at current dose continue Jardiance and Glimipiride Ordered: [facility] Hospital Care/Day High 50 Minutes 12312 6. Stage 3 chronic kidney disease (N18.30: Chronic kidney disease, stage 3 unspecified) possible due to complication of DM. monitor renal function. creatinine at baseline of 1.9. needs out patient follow up for Nephro recommendation 7. Coronary artery disease (I25.10: Atherosclerotic heart disease of [place] coronary artery without angina pectoris) continue plavix and asa as ordered Orders: acetaminophen-oxycodone, 1 tab(s), Tab, Oral, [id number], Routine, Start date 02/13/24 13:00:00 EDT furosemide, [...] Ordered: [facility] Hospital Care/Day High 75 Minutes 40668 2. Essential hypertension (I10: Essential (primary) hypertension) BP on the low side today unsure if this is related to ?Anemia hold Losartan monitor BP, if still low, will bolus. Ordered: Initial Hospital Care/Day High 75 Minutes 28925 3. Hyperlipidemia (E78.5: Hyperlipidemia, unspecified) statin Ordered: Initial Hospital Care/Day High 75 Minutes 47581 4. Anemia (D64.9: Anemia, unspecified) Acute on chronic anemia. acute loss due to post op blood loss transfused 2 units of PRBC today. continue to monitor will hold asa and plavix for now and resume when Anemia improves or stabilized Also hold off on anticoagulation until anemia stabilizes can do scd on left leg Ordered: Initial Hospital Care/Day High 75 Minutes 94512 5. 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 (E11.42: Type 2 diabetes mellitus with diabetic polyneuropathy) poorly controlled diabetic diet continue glimipiride, lantus and januvia Monitor BGL and treate with sliding scale as needed Ordered: Initial Hospital Care/Day High 75 Minutes 23333 Orders: acetaminophen-oxycodone, 1 tab(s), Tab, Oral, [id number]-[id number], Routine, Start date 02/13/24 13:00:00 EDT amitriptyline, [...] Author:Zachary morrow MD, Ahmad F Date:02/12/24 Plan [employer] [employer] (ASA) physical status classification: [...] US PVR Lower EXT Complete Bilat 11/20/23 [facility] 09-18-2024 NotePeripheral smear evaluation:[facility] HospitalComment on above:Performed By: #### [id number] #### [facility] [address] [place], [place] [id number] NoteProgress Note-Physician Assessment/Plan Patient is a 58-year-old male with past medical history of TX/CAD, heart failure, GERD, HTN, COPD, insulin-dependent type [...] daily to aid in wound healing Ordered: [facility] Hospital Care/Day Straight Fwd 25 Minutes 32377 2. Leukocytosis (D72.829: Elevated white blood cell [...] artery disease (I25.10: Atherosclerotic heart disease of [place] coronary artery withoutangina pectoris) ? Aspirin, atorvastatin [...] Lymph Auto: 12.4 % Low (02/21/24 06:02:00) O'Brien Auto: 8.7 % (02/21/24 06:02:00) Eos Auto: 3.6 % (02/21/24 06:02:00) Basophil Auto: 0.7 % (02/21/24 06:02:00) Neutro Absolute: 9.3 E9/L High (02/21/24 06:02:00) Lymph Absolute: 1.5 E9/L (02/21/24 06:02:00) O'Brien Absolute: 1.1 E9/L High (02/21/24 06:02:00) Eos [...] High (02/21/24 10:49: (more content not included)... [facility] HospitalComment on above:Result Comment: Electronically Signed By: Raulito Gilliland DO\.br\Date and Time Signed: 02/21/24 10:56 EDT 02-20-2024 NoteProgress Note-Physician Assessment/Plan Patient is a 58-year-old male with past medical history of TX/CAD, heart failure, GERD, HTN, COPD, insulin-dependent type [...] Auto Diff CBC w/ Auto Diff eGFR [facility] Hospital Care/Day Moderate 35 Minutes 41910 2. Leukocytosis (D72.829: Elevated white blood cell count, unspecified) ? Likely reactive with nausea and vomiting overnight. Will continue to monitor closely. No signs ofinfection of surgical wound. Follow-up a.m. labs. 3. Essential hypertension (I10: Essential (primary) hypertension) ? Metoprolol, isosorbide mononitrate, Lasix. Well-controlled. Ordered: [facility] Hospital Care/Day Moderate 35 Minutes 04697 4. Hyperlipidemia (E78.5: Hyperlipidemia, unspecified) ? Statin Ordered: [facility] Hospital Care/Day Moderate 35 Minutes 60221 5. Anemia (D64.9: Anemia, unspecified) ? Acute on chronic. Stable postoperatively. Will continue to monitor closely Ordered: Basic Metabolic Panel CBC w/ Auto Diff [facility] Hospital Care/Day Moderate 35 Minutes 66259 6. 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 Glimepiride 2 mg p.o. twice daily, glargine 35 units nightly, lispro 5 units with meals, BGT ACHS, sliding scale insulin as needed with meals ?Poorly controlled. Increased glargine to 35 units nightly om 16 from 30 units nightly. Ordered: [facility] Hospital Care/Day Moderate 35 Minutes 39894 7. Stage 3 chronic kidney disease (N18.30: Chronic kidney disease, stage 3 unspecified) ? Creatinine 1.8. Baseline 1.5-1.6. Monitor closely. Ordered: Basic Metabolic Panel CBC w/ Auto Diff eGFR [facility] Hospital Care/Day Moderate 35 Minutes 55589 8. Coronary artery disease (I25.10: Atherosclerotic heart disease of [place] coronary artery withoutangina pectoris) ? Aspirin, atorvastatin 80 mg p.o. daily, Plavix ? Metoprolol, isosorbide mononitrate, Lasix Ordered: [facility] Hospital Care/Day Moderate 35 Minutes 40341 9. Tobacco abuse (Z72.0: Tobacco use) ? [...] the indicated time period. (more content not included)...[facility] HospitalComment on above:Result Comment: Electronically Signed By: Ben Corrigan III, DO.br\Date and Time Signed: 02/20/24 19:09 [id number] NoteProgress Note-Physician Assessment/Plan Patient is a 58-year-old male with past medical history of TX/CAD, heart failure, GERD, HTN, COPD, insulin-dependent type [...] Basic Metabolic Panel CBC w/ Auto Diff [facility] Mod[facility] 35 Minutes 38422 2. Essential hypertension (I10: Essential (primary) hypertension) ? Metoprolol, isosorbide mononitrate, Lasix. Well-controlled. Ordered: [facility]Day Moderate 35 Minutes 64577 3. Hyperlipidemia (E78.5: Hyperlipidemia, unspecified) ? Statin Ordered: [facility] Hospital Care/Day Moderate 35 Minutes 37115 4. Anemia (D64.9: Anemia, unspecified) ? Acute on chronic. Stable postoperatively. Will continue to monitor closely Ordered: CBC w/ Auto Diff [facility] Hospital Care/Day Moderate 35 Minutes 29217 5. 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 Glimepiride 2 mg p.o. twice daily, glargine 30 units nightly, lispro 5 units with meals, BGT ACHS, sliding scale insulin as needed with meals ?Poorly controlled. Will increase glargine to 35 units nightly. Ordered: [facility] Hospital Care/Day Moderate 35 Minutes 22728 6. Stage 3 chronic kidney disease (N18.30: Chronic kidney disease, stage 3 unspecified) ? Creatinine 1.7. Baseline 1.5-1.6. Monitor closely. Ordered: Basic Metabolic Panel [facility] Hospital Care/Day Moderate 35 Minutes 34628 7. Coronary artery disease (I25.10: Atherosclerotic heart disease of [place] coronary artery withoutangina pectoris) ? Aspirin, atorvastatin [...] Exam General: alert, no (more content not included)...[facility] Comment on above:Result Comment: Electronically Signed By: Ben Corrigan III, DO\Date and Time Signed: 02/19/24 17:00 [id number] NoteProgress Note-Physician Patient: MYRA PICKARD SR Age: 58 years Sex: Male : 1965 Associated Diagnoses: None Author: MD Juanito, Laura Rodriguez Postoperative Information Postoperative disposition: Postoperative disposition: To PACU. Optimetrix number: Optimetrix number [id number]. Anesthetic utilized: General. Health Status Allergies: Allergic [...] Discharge when meets criteria ( To home ).[facility] HospitalComment on above:Result Comment: Electronically Signed [...] mg oral tablet: 2 tab(s), Tab, Oral, [id number], Routine, Start date 02/16/24 14:00:00 EDT Plavix [...] cap(s), Oral, B (more content not included)... [facility] HospitalComment on above:Result Comment: Electronically Signed [...] artery disease (I25.10: Atherosclerotic heart disease of [place] coronary artery withoutangina pectoris) continue plavix as [...] mg/dL High (02/18/24 11:32:00) POC Device SN: [id number] (02/18/24 11:32:00) POC User ID: [id number] (02/18/24 11:32:00) POC Username: RAJESH OSEGUERA (02/18/24 11:32:00) Problem List/Past Medical History Ongoing Arthritis Asthma BPH with obstruction/lower urinary tract symptoms COPD type A Fibromyalgia Gross hematuria Head ache Heart attack Heart disease Heart murmur Hyperlipidemia Orchitis Restless leg Smoker Urinary retention Historical CHF (congestive heart failure) GERD [Gastroesophageal reflux disease] HTN [Hypertension] TX (myocardial infarction) NIDDM Medications Inpatient acetaminophen 325 [...] mg-325 mg oral tablet, 2 tab(s), Oral, [id number] Plavix 75 mg Tab, 75 mg= 1 tab(s), Oral, Daily polyethylene glycol 335 (more content not included)...[facility] Memorial HospitalComment on above:Result Comment: Electronically Signed By: Marisela HERRERA, Elan Humphrey.nile\Date and Time Signed: 02/18/24 13:45 [id number] NoteProgress Note-Physician Assessment/Plan Goal: 1. Aggressive bowel regimen as ordered 2. Monitor hgb 3. Monitor BGL, better controlled but still elevated. DVT prophylaxis with heparin if tolerated. 1. 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 Essential hypertension (I10: Essential (primary) hypertension) good control continue to hold losartan continue lasix and imdur monitor BP Ordered: [facility] Hospital Care/Day High 50 Minutes 80832 [facility] Hospital Care/Day Moderate 35 Minutes 18218 3. Hyperlipidemia (E78.5: Hyperlipidemia, unspecified) continue statin Ordered: [facility] Hospital Care/Day High 50 Minutes 20695 [facility] Hospital Care/Day Moderate 35 Minutes 28192 4. Anemia (D64.9: Anemia, unspecified) Acute Blood loss anemia, possibly post surgical loss hgb has remained stable post transfusion continue to monitor CBC today Ordered: [facility] Hospital Care/Day High 50 Minutes 08193 [facility] Hospital Care/Day Moderate 35 Minutes 76242 5. 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 (E11.42: Type 2 diabetes mellitus with diabetic polyneuropathy) BGL is better controlled today compared to yesterday continue current insulin dose with sliding scale If BGl continues to be elevated during the day today, will start meal time scheduled coverage Ordered: [facility] Hospital Care/Day High 50 Minutes 21507 [facility] Hospital Care/Day Moderate 35 Minutes 74785 6. Stage 3 chronic kidney disease (N18.30: Chronic kidney disease, stage 3 unspecified) Overall renal function is stable continue to monitor Ordered: [facility] Hospital Care/Day High 50 Minutes 57093 [facility] Hospital Care/Day Moderate 35 Minutes 82406 7. Coronary artery disease (I25.10: Atherosclerotic heart disease of [place] coronary artery withoutangina pectoris) On home medication/ continue plavix and statin Ordered: [facility] Hospital Care/Day High 50 Minutes 13682 [facility] Hospital Care/Day Moderate 35 Minutes 57134 8. Tobacco abuse (Z72.0: Tobacco use) nicotine patch Ordered: [facility] Hospital Care/Day High 50 Minutes 05513 [facility] Hospital Care/Day Moderate 35 Minutes 13692 Orders: acetaminophen-oxycodone, 2 tab(s), Tab, Oral, q2bt-[id number], Routine, Start date 02/16/24 14:00:00 EDT heparin, [...] (02/17/24 07:49:00) POC Dev (more content not included)...[facility] HospitalComment on above:Result Comment: Electronically Signed By: Marisela HERRERA, Elan Robbins\.br\Date and Time Signed: 02/17/24 10:36 [id number] NoteProgress Note-Physician Assessment/Plan Goals: 1. 2 time [...] [facility] High 50 Minutes 20204 [facility] 50 Minutes 68711 2. Essential hypertension (I10: Essential (primary) hypertension) had to held lasix this morning due to low BP continue other home meds, Imdur, Ordered: Basic Metabolic Panel CBC w/ Auto Diff eGFR Path. [facility] 50 Minutes 36003 [facility] High 50 Minutes 52260 3. Hyperlipidemia (E78.5: Hyperlipidemia, unspecified) continue statin Ordered: Basic Metabolic Panel CBC w/ Auto Diff eGFR Path. [facility] High 50 Minutes 06420 [facility] High 50 Minutes 55588 4. Anemia (D64.9: Anemia, unspecified) hgb is stable post transfusion at 7.6 since patient is stable, will start heparin prophylaxis Ordered: Basic Metabolic Panel CBC w/ Auto Diff eGFR Path. Review [facility] Hospital Care/Day High 50 Minutes 56989 [facility] Hospital Care/Day High 50 Minutes 15580 5. 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 Review [facility] Hospital Care/Day High 50 Minutes 28491 [facility] Hospital Care/Day High 50 Minutes 02404 6. Stage 3 chronic kidney disease (N18.30: Chronic kidney disease, stage 3 unspecified) stable continue to monitor Ordered: Basic Metabolic Panel CBC w/ Auto Diff eGFR Path. Review [facility] Hospital Care/Day High 50 Minutes 23867 [facility] Hospital Care/Day High 50 Minutes 62847 7. Coronary artery disease (I25.10: Atherosclerotic heart disease of [place] coronary artery withoutangina pectoris) overall stable continue plavix Ordered: Basic Metabolic Panel CBC w/ Auto Diff eGFR Path. Review [facility] Hospital Care/Day High 50 Minutes 62022 [facility] Hospital Care/Day High 50 Minutes 74757 8. Tobacco abuse (Z72.0: Tobacco use) nicotine patch Ordered: Basic Metabolic Panel CBC w/ Auto Diff eGFR Path. Review [facility] Hospital Care/Day High 50 Minutes 95632 [facility] Hospital Care/Day High 50 Minutes 84359 Orders: acetaminophen-oxycodone, 2 tab(s), Tab, Oral, [id number], Routine, Start date 02/16/24 14:00:00 EDT heparin, [...] no adenopathy, no tenderness (more content not included)...[facility] HospitalComment on above:Result Comment: Electronically Signed By: Marisela HERRERA, Elan Humphrey.br\Date and Time Signed: 02/16/24 13:30 [id number] NotePath ReviewPeripheral smear evaluation: - Moderate microcytic and hypochromic anemia with anisopoikilocytosis. - White blood cell and Platelet: Unremarkable. Comment: Recommend clinical correlation and rule out iron deficiency anemia. CPT: 64263 Blair Blood MD 02/21/2024 12:59:29 EDT *NA* (02/16/24 6:12 AM)[facility] Danielle 09-12-2024 NoteProgress Note-Physician Assessment/Plan Goal: 1. [...] Diff [facility] Hospital Care/Day High 50 Minutes 36329 2. Essential hypertension (I10: Essential (primary) hypertension) good control continue current medications Ordered: Basic Metabolic Panel CBC w/ Auto Diff [facility] Hospital Care/Day High 50 Minutes 16173 3. Hyperlipidemia (E78.5: Hyperlipidemia, unspecified) statin Ordered: Basic Metabolic Panel CBC w/ Auto Diff [facility] Hospital Care/Day High 50 Minutes 31071 4. Anemia (D64.9: Anemia, unspecified) hgb has remained stable since transfusion hgb is 7.7. i thought it should be higher than than considering that he received 2 units of PRBC. Ordered: Basic Metabolic Panel CBC w/ Auto Diff [facility] Hospital Care/Day High 50 Minutes 61772 5. 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 (E11.42: Type 2 diabetes mellitus with diabetic polyneuropathy) BGL is poorly controlled diabetic diet increase lantus to 25 units QHS accucheck achs Ordered: Basic Metabolic Panel CBC w/ Auto Diff [facility] Hospital Care/Day High 50 Minutes 41809 6. Stage 3 chronic kidney disease (N18.30: Chronic kidney disease, stage 3 unspecified) overall stable, but noted mild increase in creatinine today contiue to monitor Ordered: Basic Metabolic Panel CBC w/ Auto Diff [facility] Hospital Care/Day High 50 Minutes 88133 7. Coronary artery disease (I25.10: Atherosclerotic heart disease of [place] coronary artery withoutangina pectoris) Plavix for secondary prophylaxis Ordered: Basic Metabolic Panel CBC w/ Auto Diff [facility] Care/Day High 50 Minutes 79273 8. Tobacco abuse (Z72.0: Tobacco use) nicotine patch Ordered: Basic Metabolic Panel CBC w/ Auto Diff [facility] Care/Day High 50 Minutes 87947 Orders: insulin glargine, 25 unit(s), Injection-Insulin, SubCutaneous, [...] Hct: 22.2 % Low (more content not included)...[facility] HospitalComment on above:Result Comment: Electronically Signed By: Marisela HERRERA, Elan Humphrey.nile\Date and Time Signed: 02/15/24 13:28 [id number] NoteInterdisciplinary Note - PT PT Evaluation completed with an [facility] score of . Pt was able to perform bed mobility with Mod I and transfers with CGA/Min A. Pt was able to ambulate 4 feet with FWW, but does fatigue easily. Ptdoes report increased pain in right stump, but still maintained activity well. Pt will need furtherrehabilitation SNF in order to return home again safelyGuernsey [facility]09-11-2024 NoteProgress Note-Physician Assessment/Plan 1. 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 due to poor pain control, I discontinued IV morphine and switched to IV dilaudid PT/OT appreciate Vascular team recommendations Ordered: [facility] Hospital Care/Day High 50 Minutes 81778 2. Essential hypertension (I10: Essential (primary) hypertension) Better compared to yesterday. continue current management currently on lasix, losartan, metoprolol and imdur. seems to be too much BP meds since BP is about 120s. continue to monitor BP. Ordered: [facility] Hospital Care/Day High 50 Minutes 18838 3. Hyperlipidemia (E78.5: Hyperlipidemia, unspecified) continue statin Ordered: [facility] Hospital Care/Day High 50 Minutes 23951 4. Anemia (D64.9: Anemia, unspecified) Acute on chronic anemia due to surgical intervention hgb has remained stable since transfusion continue to monitor h and h Ordered: [facility] Hospital Care/Day High 50 Minutes 47871 5. 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 continue lantus at current dose continue Jardiance and Glimipiride Ordered: [facility] Hospital Care/Day High 50 Minutes 62583 6. Stage 3 chronic kidney disease (N18.30: Chronic kidney disease, stage 3 unspecified) possible due to complication of DM. monitor renal function. creatinine at baseline of 1.9. needs out patient follow up for Nephro recommendation 7. Coronary artery disease (I25.10: Atherosclerotic heart disease of [place] coronary artery withoutangina pectoris) continue plavix and asa as ordered Orders: acetaminophen-oxycodone, 1 tab(s), Tab, Oral, [id number], Routine, Start date 02/13/24 13:00:00 EDT furosemide, [...] Extremities: right BKA Debbie (more content not included)...[facility] HospitalComment on above: Result Comment: Electronically Signed By: Marisela HERRERA, Elan Robbins\.br\Date and Time Signed: 02/14/24 09:57 [id number] NoteProgress Note-Physician Assessment/Plan 1. 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 appreciate additional recommendation from Vascular team Ordered: [facility] Hospital Care/Day High 75 Minutes 59374 2. Essential hypertension (I10: Essential (primary) hypertension) BP on the low side today unsure if this is related to ?Anemia hold Losartan monitor BP, if still low, will bolus. Ordered: [facility] Hospital Care/Day High 75 Minutes 34155 3. Hyperlipidemia (E78.5: Hyperlipidemia, unspecified) statin Ordered: [facility] Hospital Care/Day High 75 Minutes 44786 4. Anemia (D64.9: Anemia, unspecified) Acute on chronic anemia. acute loss due to post op blood loss transfused 2 units of PRBC today. continue to monitor will hold asa and plavix for now and resume when Anemia improves or stabilized Also hold off on anticoagulation until anemia stabilizes can do scd on left leg Ordered: [facility] Care/Day High 75 Minutes 62575 5. 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 (E11.42: Type 2 diabetes mellitus with diabetic polyneuropathy) poorly controlled diabetic diet continue glimipiride, lantus and januvia Monitor BGL and treate with sliding scale as needed Ordered: [facility] Hospital Care/Day High 75 Minutes 77413 Orders: acetaminophen-oxycodone, 1 tab(s), Tab, Oral, [id number], Routine, Start date 02/13/24 13:00:00 EDT amitriptyline, [...] He is now interested in going to [facility] to get PT to enable him be [...] Back: No tenderness, Luzmaria (more content not included)...[facility] HospitalComment on above:Result Comment: Electronically Signed By: Marisela HERRERA, Elan Humphrey.nile\Date and Time Signed: 02/13/24 12:25 [id number] NoteHistory and Physical History of Present Illness [...] mg/dL High (02/12/24 17:15:00) POC Device SN: [id number] (02/12/24 17:15:00) POC User ID: [id number] (02/12/24 17:15:00) POC Username: POC Username (02/12/24 [...] a day (at bedti (more content not included)...[facility] HospitalComment on above:Result Comment: Electronically Signed By: Marisela HERRERA, Elan Robbins\.br\Date and Time Signed: 02/12/24 18:34 [id number] Evaluation + Plan note* Assessment & Plan Note - Mike Montes MD - 01/18/2024 9:04 AM EDTAssociated Problem(s): Cigarette smoker Counseled him on smoking cessation at length. He is willing to quit. [facility]08-15-2024 Miscellaneous Notes* Assessment & Plan Note - Mike Montes MD - 01/18/2024 9:04 AM EDTAssociated Problem(s): Cigarette smoker Counseled him on smoking cessation at length. He is willing to quit. * Assessment & Plan Note - Mike Montes MD - 01/18/2024 9:03 AM EDT Associated Problem(s): 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 ([facility]) Right below-knee amputation. Will do it here at [place]. documented in this encounterG[facility] Evaluation + Plan note* Assessment & Plan Note - Mike Montes MD - 01/18/2024 9:03 AM EDT Associated Problem(s): 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 ([facility]-H[facility]) Right below-knee amputation. Will do it here at [place]. [facility]08-15-2024 History of Present illness Narrative* Mike Montes [...] control exposed bone. The patient and his tutoring clinician are sending him for below-knee amputation. We [...] 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 ([facility]) Diabetes mellitus type 2, controlled ([facility]) GERD (gastroesophageal reflux disease) Hyperlipidemia Hypertension Past Surgical History: Past Surgical History: Procedure Laterality Date AMPUTATION FOOT / TOE Right 09/29/2023 APPENDECTOMY BYPASS ARTERY FEMORAL POPLITEAL Right 11/08/2023 Performed by Mike Montes MD at [facility] SPECIAL PROC CARDIAC CATHETERIZATION x4 heart stents COLONOSCOPY PROSTATE SURGERY SPINE SURGERY Vascular Invasive Right lower extremity angiogram with intervention/stent Right 11/07/2023 Performed by Mike Montes MD at [facility] CARDIAC CATH LABS Social and Family [...] (CMS-HCC) - Primary Current Assessment & Plan Right below-knee amputation. Will do it here at [place]. Myra was seen today for angioplasty rle follow up - procedure at [facility]. yolanda and critical limb ischemia of right lower extremity with gangre. 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) Mike Montes MD, BG, RPVI, FSVS, FACS [facility] [facility] This note was created with the assistance of a speech recognition program. While intending to generate a timely document that accurately reflects the content of the visit, no guarantee can be provided that every grammatical or spelling mistake has been or will be identified or corrected. Thank you for your understanding. documented in this encounterG[facility]08-[facility]-2024 Instructions* Patient Instructions* Mike Montes MD - 01/18/2024 8:50 AM EDT Are You Ready To Kick The Habit? Free Tobacco Cessation Resources [facility] Services [facility] Centers provide all employees with free tobacco cessation services that include: Counseling to understand nicotine addiction Education about medications that can help you successfully quit Assistance with developing a plan to quit Call to set up an individual appointment or find out when group classes will be held: [facility]: [phone] [facility]: [phone] [facility]: [phone] [facility]: [phone] Quit Smoking Action Plan and Resources [facility] offers an eight-week, online smoking cessation plan to all [facility] employees, regardless of whether [place] is your medical insurance provider. Go to [email or web address] and click the Health Risk Assessment and Resources link to get started. In the Burar5Qdxtjc menu, click Action Plans instead of Health Risk Assessment to access the Quit Smoking Action Plan. Additional smoking cessation resources are also available to all [facility] employees on the Tirgp[employer]ukn web page at [email or web address]. [place] Tobacco Cessation Program If [place] is your medical insurance provider, there are more free resources available to you, including: No copays or deductibles on local tobacco cessation counseling services to help you quit Prescription assistance for tobacco cessation medications to help you quit For details about the tobacco cessation program available to [place] members, go to www.[employer]care.com (Search: Tobacco Cessation Program). [place] Tobacco Quit Line 0-527-VUGL-NOW ( ) is a toll-free, telephonic service that helps [place] residents quit smoking and using tobacco. It is staffed by experts who tailor a quit plan for you and provide you with advice. [place] Tobacco Quit Line 0-622-MQXZ-NOW ( ) is a toll-free, telephonic service that helps [place] residents quit smoking and using tobacco. It is staffed by experts who tailor a quit plan for you and provide you with advice. Two weeks of nicotine replacement therapy may be provided at no charge, if needed. Additional Resources These national organizations also offer free information and resources to help you quit tobacco: [place] [employer]--www.cancer.org/healthy/stayawayfromtobacco [place] [employer]--www.heart.org (Search: Quit Smoking) Centers for Disease Control and Prevention--www.cdc.gov/tobacco [place] [employer]--www.lungusa.org documented in this encounterPorter Medical CenterAugustine Temperature Management [id number] NotePatient Education - Text [place], [place] Cardiovascular PCI DISCHARGE INSTRUCTIONS Diet: ? [...] for any reason without talking to your field service specialist Site Care: ? Do not remove [...] are interested in smoking cessation, contact [facility] at [phone], ext. [phone]. ? In the event you are unable to reach your physician, please call Rosa at [phone] andthe box folding machine operator will assist you. Seek Medicare [...] your urine or stool ? 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) We did iliofemoral endarterectomy and femoral above-knee bypass. He has some residual tibial occlusive disease. I discussed with him doing right lower extremity angiogram and intervention. Will do this close to home at [facility]. [facility]07-18-2024 Miscellaneous Notes* Assessment & Plan Note - Mike Montes MD - 12/21/2023 8:57 AM EDTAssociated Problem(s): 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 ([facility]) We did iliofemoral endarterectomy and femoral above-knee bypass. He has some residual tibial occlusive disease. I discussed with him doing right lower extremity angiogram and intervention. Will do this close to home at [facility]. documented in this encounterGlenbeigh Hospital07-18-2024 History of Present illness Narrative* Mike Montes [...] 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 ([facility]) Diabetes mellitus type 2, controlled ([facility]) GERD (gastroesophageal reflux disease) Hyperlipidemia Hypertension Past Surgical History: Past Surgical History: Procedure Laterality Date AMPUTATION FOOT / TOE Right 09/29/2023 APPENDECTOMY BYPASS ARTERY FEMORAL POPLITEAL Right 11/08/2023 Performed by Mike Montes MD at [facility] SPECIAL PROC CARDIAC CATHETERIZATION x4 heart stents COLONOSCOPY PROSTATE SURGERY SPINE SURGERY Vascular Invasive Right lower extremity angiogram with intervention/stent Right 11/07/2023 Performed by Mike Montes MD at [facility] CARDIAC CATH LABS Social and Family [...] Will do this close to home at [facility]. Diagnoses and all orders for this visit: [...] you for your understanding. documented in this encounterGlenbeigh Hospital06-27-2024 History of Present illness Narrative* Guero Tam, - 11/30/2023 11:10 PM EDT Patient Name: Myra Pickard Date of : 1965 Date of Service: 11/30/2023 Facility: [facility] Type of Visit: Skilled Visit Subjective Myra Pickard is a 58 y.o. male seen today at [facility] facility for [facility] visit. Myra is in [...] Exam Vitals reviewed. Exam conducted with a bakery team leader present (). Constitutional: General: He is not [...] of right lower extremity with gangrene (CMS-HCC) 2. 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 (CMS-HCC) 3. Delayed surgical wound healing of foot amputation stump (CMS-HCC) 4. Other abnormalities of gait and mobility Continue therapy to reach MMI. Ok to discharge on Monday. F/U with PCP within 2 weeks and specialists as directed. I recommended he stay on Trulicity and stop Januvia. He will discuss this with his PCP. All medications reviewed and are medically necessary. ELECTRONICALLY SIGNED BY: Guero Tam DO documented in this encounterGlenbeigh Hospital06-27-2024 Evaluation + Plan note* Assessment & Plan Note - Mike Montes MD - 11/30/2023 9:19 AM EDT Associated Problem(s): Cigarette smoker motivated to quit Counseled on smoking cessation for at least 3 minutes [facility]06-27-2024 Miscellaneous Notes* Assessment & Plan Note - Mike Montes MD - 11/30/2023 9:19 AM EDTAssociated Problem(s): Cigarette smoker motivated to quit Counseled on smoking cessation for at least 3 minutes documented in this encounterGlenbeigh Hospital06-27-2024 History of Present illness Narrative* Mike Montes [...] 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 ([facility]) Cigarette smoker motivated to quit Plan Plan [...] however he has some residual tibial disease. iMke Montes MD, BG documented in this encounterGlenbeigh Hospital06-27-2024 Instructions* Patient Instructions* Mike Montes MD - 11/30/2023 8:50 AM EDT Are You Ready To Kick The Habit? Free Tobacco Cessation Resources [facility] Services [facility] Centers provide all employees with free tobacco cessation services that include: Counseling to understand nicotine addiction Education about medications that can help you successfully quit Assistance with developing a plan to quit Call to set up an individual appointment or find out when group classes will be held: [facility]: [phone] [facility]: [phone] [facility]: [phone] [facility]: [phone] Quit Smoking Action Plan and Resources [facility] offers an eight-week, online smoking cessation plan to all [facility] employees, regardless of whether [place] is your medical insurance provider. Go to [email or web address] and click the Health Risk Assessment and Resources link to get started. In the Mixwit menu, click Action Plans instead of Health Risk Assessment to access the Quit Smoking Action Plan. Additional smoking cessation resources are also available to all [facility] employees on the Cmfng7Hxrjlx web page at [email or web address]. [place] Tobacco Cessation Program If [place] is your medical insurance provider, there are more free resources available to you, including: No copays or deductibles on local tobacco cessation counseling services to help you quit Prescription assistance for tobacco cessation medications to help you quit For details about the tobacco cessation program available to [place] members, go to www.[email or web address].AudiencePoint (Search: Tobacco Cessation Program). [place] Tobacco Quit Line 8-858-TSIL-NOW ( ) is a toll-free, telephonic service that helps [place] residents quit smoking and using tobacco. It is staffed by experts who tailor a quit plan for you and provide you with advice. [place] Tobacco Quit Line 5-764-TDUR-NOW ( ) is a toll-free, telephonic service that helps [place] residents quit smoking and using tobacco. It is staffed by experts who tailor a quit plan for you and provide you with advice. Two weeks of nicotine replacement therapy may be provided at no charge, if needed. Additional Resources These national organizations also offer free information and resources to help you quit tobacco: [place] Cancer Society--www.cancer.org/healthy/stayawayfromtobacco [place] Heart Association--www.heart.org (Search: Quit Smoking) Centers for Disease Control and Prevention--www.cdc.gov/tobacco [place] Lung Association--www.lungusa.org documented in this encounterPorter Medical CenterNok Nok Labs06-21-2024 History of Present illness Narrative* Guero Tam, DO - 11/24/2023 6:57 PM EDT Patient Name: Myra Pickard Date of : 1965 Date of Service: 11/24/2023 Facility: [facility] Type of Visit: Skilled Visit Subjective Myra Pickard is a 58 y.o. male seen today at [facility] facility for therapy visit. Myra is in therapy. He is hoping to be allowed to wt bear on his right foot. His called the tutoring clinician to ask to be allowed to wt bear or he will be discharged from therapy. He had a bypass on the right lower leg and stent placed by vascular. He had an US and MICHELLE yesterday. He is still havinga lot of pain in the right leg. He feels a hard spot where his incision is and the [employer] tech said shesaw something there. He is [...] Exam Vitals reviewed. Exam conducted with a bakery team leader present (). Constitutional: General: He is not [...] Status post partial amputation of right foot ([facility]) 2. Other abnormalities of gait and mobility 3. Leg edema 4. Primary hypertension 5. Hypotension due to drugs 6. 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) 7. Diabetic neuropathy His leg edema is [...] BY: Guero Tam DO documented in this encounterACMC Healthcare SystemHopkins Golf [facility] [id number] Evaluation + Plan note Future Scheduled Tests Radiology* US PVR Lower EXT Complete Bilat 11/20/23 [facility] [place] 06-07-2024 Miscellaneous Notes* Telephone Encounter - Ashley Isaiah - 11/10/2023 10:05 AM EDT LMVM for patient's to call back with her Date of so I can update his billing info. documented in this encounterPorter Medical CenterNok Nok Labs06-07-2024 Telephone encounter Note* Telephone Encounter - Ashley Colon - 11/10/2023 10:05 AM EDT LMVM for patient's to call back with her Date of so I can update his billing info. [facility] History of Present illness Narrative* Guero Tam, - 11/07/2023 11:59 PM EDT Patient Name: Myra Pickard Date of : 1965 Date of Service: 11/07/2023 Facility: [facility] Type of Visit: Skilled Visit Subjective Myra Pickard is a 58 y.o. male seen today at [facility] facility for therapy visit. Myra is participating [...] Assessment / Plan 1. Peripheral arterial disease ([facility]) 2. Delayed surgical wound healing of foot amputation stump ([facility]) 3. Other abnormalities of gait and mobility 4. Status post partial amputation of right foot ([facility]) 5. Pressure ulcer of right ankle, stage 3 ([facility]) 6. Type 2 diabetes mellitus with stage 4 chronic kidney disease, without long- term current use of insulin ([facility]) I checked his medications and he is on Trulicity so he doesn't need Januvia. F/U with vascular surgeon. May need further intervention in leg. Continue therapy to reach MMI. All medications reviewed and are medically necessary. ELECTRONICALLY SIGNED BY: Guero Tam DO documented in this encounterGlenbeigh Hospital05-31-2024 History of Present illness Narrative* Guero Tam DO - 11/03/2023 11:59 PM EDT Patient Name: Myra Pickard Date of : 1965 Date of Service: 11/03/2023 Facility: [facility] Type of Visit: Skilled Visit Subjective Myra Pickard is a 58 y.o. male seen today at [facility] facility for therapy visit. No new problems [...] Exam Vitals reviewed. Exam conducted with a bakery team leader present (). Constitutional: General: He is not [...] post partial amputation of right foot (CMS-HCC) 2. Pressure ulcer of right ankle, stage 3 (CMS-HCC) 3. Other abnormalities of gait and mobility 4. Delayed surgical wound healing of foot amputation stump ([facility]) Await results of CT angiogram. May need vascular intervention. Continue therapy to reach maximum improvement. Continue other orders as directed. ELECTRONICALLY SIGNED BY: Guero Tam DO documented in this encounterACMC Healthcare SystemIZI Medical Products [id number] History of Present illness Narrative* Guero Tam DO - 10/25/2023 11:59 PM EDT Patient Name: Myra Pickard Date of : 1965 Date of Service: 10/25/2023 Facility: [facility] Type of Visit: Skilled Visit Subjective Myra Pickard is a 58 y.o. male seen today at [facility] facility for therapy visit. Myra was seen [...] Exam Vitals reviewed. Exam conducted with a bakery team leader present (Lefty Rosas [facility] Constitutional: General: He is not in [...] Status post partial amputation of right foot ([facility]) 2. Osteomyelitis of right foot, unspecified type ([facility]) 3. Muscle weakness (generalized) 4. Other abnormalities of gait and mobility 5. Chronic obstructive pulmonary disease, unspecified COPD type ([facility]) 6. Peripheral arterial disease I'll review [...] BY: Guero Tam DO documented in this encounterACMC Healthcare SystemHopkins Golf [facility] [id number] NoteSinus tachycardia Rightward axis Poor anterior R wave progression QTc 481 [id number] History of Present illness Narrative* Raulito Inman [...] signing my name below, I, Helen Riley LPNibdarrian attest that this documentation has been prepared [...] exam, discussion and plan. documented in this encounterSelect [facility] Work Phone: 1(798) 796-145605-21-2024 Instructions* Patient Instructions* Rosemary Benavides LPN - [...] from a cardiac standpoint documented in this encounterSelect Medical Specialty [facility] Work Phone: 1(345) 668-449405-15-2024 Miscellaneous Notes* Telephone Encounter - Cameron Mg LPN - 10/18/2023 9:30 AM EDT Physician requested stat testing, patient unable to complete testing in [facility]> Spoke to Dr. Montes, states patient can have testing and f/u at [facility]. [place] office staff aware. Faxed orders to [facility] at [phone].Patient unable to complete testing at times that were offered, requested a Monday or Monday. documented in this encounterGlenbeigh Hospital05-15-2024 Telephone encounter Note* Telephone Encounter - Cameron Mg LPN - 10/18/2023 9:30 AM EDT Physician requested stat testing, patient unable to complete testing in [facility]> Spoke to Dr. Montes, states patient can have testing and f/u at [facility]. [place] office staff aware. Faxed orders to [facility] at [phone].Patient unable to complete testing at times that were offered, requested a Monday or Monday. [facility]05-15-[facility] Evaluation + Plan note* Assessment & Plan Note - Mike Montes MD - 10/18/2023 8:52 AM EDTAssociated Problem(s): Heavy tobacco smoker >10 cigarettes per day Counseled in length willing to quit. [facility]05-15-2024 Miscellaneous Notes* Assessment & Plan Note - Mike Montes MD - 10/18/2023 8:52 AM EDTAssociated Problem(s): Heavy tobacco smoker >10 cigarettes per day Counseled in length willing to quit. 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 ([facility]) PVR and CTA abdomen and plevis with runoff * Addendum Note - Mike Montes MD - 10/18/2023 8:30 AM EDTAddended by: MIKE MONTES on: 10/18/2023 09:00 AM Modules accepted: Orders documented in this encounterGlenbeigh Hospital05-15-2024 Evaluation + Plan note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 ([facility]) PVR and CTA abdomen and plevis with runoff [facility]05-15-20[facility] History of Present illness Narrative* Mike Montes [...] to get some of his testing from [facility] in [place]. I looked at a stress test andbasic [...] gangrene (CMS-HCC) Poor circulation - [facility] [place], [place] Heavy tobacco smoker >10 cigarettes per day Mike Montes MD, BG, RPVI, FSVS, FACS [facility] This note was created with the assistance of a speech recognition program. While intending to generate a timely document that accurately reflects the content of the visit, no guarantee can be provided that every grammatical or spelling mistake has been or will be identified or corrected. Thank you for your understanding. documented in this encounterGlenbeigh Hospital05-15-2024 Instructions* Patient Instructions* Mike Montes MD - 10/18/2023 8:30 AM EDT Are You Ready To Kick The Habit? Free Tobacco Cessation Resources [facility] Services [facility] Tobacco Treatment [facility] provide all employees with free tobacco cessation services that include: Counseling to understand nicotine addiction Education about medications that can help you successfully quit Assistance with developing a plan to quit Call to set up an individual appointment or find out when group classes will be held: [facility]: [phone] [facility]: [phone] [facility]: [phone] [facility]: [phone] Quit Smoking Action Plan and Resources [facility] offers an eight-week, online smoking cessation plan to all [facility] employees, regardless of whether [place] is your medical insurance provider. Go to [email or web address] and click the Health Risk Assessment and Resources link to get started. In the Rtpcp5Frcwej menu, click Action Plans instead of Health Risk Assessment to access the Quit Smoking Action Plan. Additional smoking cessation resources are also available to all [facility] employees on the Avjwl2Xrewhr web page at [email or web address]. [place] Tobacco Cessation Program If [place] is your medical insurance provider, there are more free resources available to you, including: No copays or deductibles on local tobacco cessation counseling services to help you quit Prescription assistance for tobacco cessation medications to help you quit For details about the tobacco cessation program available to [place] members, go to www.[email or web address] Media Group.[email or web address] (Search: Tobacco Cessation Program). [place] Tobacco Quit Line 3-035-OWYC-NOW ( ) is a toll-free, telephonic service that helps [place] residents quit smoking and using tobacco. It is staffed by experts who tailor a quit plan for you and provide you with advice. [place] Tobacco Quit Line 8-669-JJOE-NOW ( ) is a toll-free, telephonic service that helps [place] residents quit smoking and using tobacco. It is staffed by experts who tailor a quit plan for you and provide you with advice. Two weeks of nicotine replacement therapy may be provided at no charge, if needed. Additional Resources These national organizations also offer free information and resources to help you quit tobacco: [place] Cancer Society--www.cancer.org/healthy/stayawayfromtobacco [place] Heart Association--www.heart.org (Search: Quit Smoking) Centers for Disease Control and Prevention--www.cdc.gov/tobacco [place] Lung Association--www.lungusa.org documented in this encounterGlenbeigh Hospital05-15-2024 Note* Addendum Note - Mike Montes MD - 10/18/2023 8:30 AM EDTAddended by: MIKE MONTES on: 10/18/2023 09:00 AM Modules accepted: Orders [facility]05-14-20[facility] History of Present illness Narrative* Guero Tam DO - 10/17/2023 11:59 PM EDT Patient Name: Myra Pickard Date of : 1965 Date of Service: 10/17/2023 Facility: [facility] Type of Visit: Skilled Visit Subjective Myra Pickard is a 58 y.o. male seen today at [facility] facility for therapy visit. Myra has been having [...] 97% Physical Exam Exam conducted with a bakery team leader present (Lefty CORREAII). Constitutional: General: He is [...] Status post partial amputation of right foot ([facility]) 2. 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) 3. Type 2 diabetes mellitus with stage 4 chronic kidney disease, without long- term current use of insulin ([facility]) I'm going to add duloxetine 60 mg daily for diabetic neuropathy. Continue therapy. All medications reviewed and are medically necessary. F/U with specialists as directed. ELECTRONICALLY SIGNED BY: Guero Tam DO documented in this encounterGlenbeigh Hospital05-07-2024 History of Present illness Narrative* Guero Tam DO - 10/10/2023 11:33 PM EDT Patient Name: Myra Pickard Date of : 1965 Date of Service: 10/10/2023 Facility: [facility] Type of Visit: Skilled Visit Subjective Myra Pickard is a 58 y.o. male [facility]. Myra is having diarrhea. He had 5 episodes in last day and had an accident in bed. He doesn't haveany pain, blood or fever. There isn't a foul smell reported like one would expect with C. dif. He is on levofloxacin for osteomyelitis. He has an appointment with the tutoring clinician on Monday. He said his colonoscopy was [...] 98% Physical Exam Exam conducted with a bakery team leader present (Lefty Rosas MSIII). Constitutional: General: He is not in acute [...] 2. Other acute osteomyelitis of right foot ([facility]) 3. Status post partial amputation of right foot ([facility]) 4. Chronic obstructive pulmonary disease, unspecified COPD type ([facility]) 5. Abscess of right foot Will try immodium 2mg 2 po Q6 hrs prn for diarrhea. May need to check for C. dif Continue therapy. F/U with tutoring clinician on Monday. All medications reviewed and are medically necessary. May need to adjust diabetic medications in future. ELECTRONICALLY SIGNED BY: Guero Tam DO documented in this encounterPorter Medical CenterNok Nok Labs05-03-2024 History of Present illness Narrative* Guero Tam DO - 10/06/2023 4:49 PM EDT Patient Name: Myra Pickard Date of : 1965 Date of Service: 10/06/2023 Facility: [facility] Type of Visit: Admission H&P Subjective Myra Pickard is a 58 y.o. male seen today at [facility] facility for admission H&P. Myra presents to [facility] for therapies following hospitalization for sepsis due [...] 96% Physical Exam Exam conducted with a bakery team leader present ( present). Constitutional: General: He is [...] Status post partial amputation of right foot ([facility]) 3. Type 2 diabetes mellitus with stage 4 chronic kidney disease, without long- term current use of insulin ([facility]) 4. Atherosclerosis of [place] coronary artery of [place] heart without angina pectoris 5. Bacterial sepsis ([facility]) 6. Other acute osteomyelitis of right foot ([facility]) 7. Chronic obstructive pulmonary disease, unspecified COPD type ([facility]) 8. Cigarette smoker 9. BPH with obstruction/lower urinary tract symptoms 10. Gastroesophageal reflux disease, unspecified whether esophagitis present 11. Restless leg syndrome 12. Hyperlipidemia, unspecified hyperlipidemia type 13. Carpal tunnel syndrome, unspecified laterality 14. Heart failure, unspecified HF chronicity, unspecified heart failure type ([facility]) Admit to [facility] for therapies. Full code. Continue medications from hospital. F/U with specialists as directed. Good rehab potential. Planning on discharge to home when able. ELECTRONICALLY SIGNED BY: Guero Tam DO documented in this encounterPorter Medical CenterNok Nok Labs02-08-2024 Hospital Discharge instructions Follow Up Care 07/13/2023 12:04:02 With:SOLEDAD HERRERA, Yeyo Blum, URL Address: [address] [place] [id number]- When: Unknown [facility] [place] 01-22-2024 Evaluation note* Encounter Date Diagnosis Assessment Notes Treatment Notes Treatment Clinical Notes Jun, Hyperlipidemia (ICD-10 - E78.5) [facility] Other 12-29-2023 Hospital Discharge instructions Patient Education [...] urethra. Follow these instructions at home: Take ofyg-zor-rqgsvfh and prescription medicines only as told by [...] provider. Document Revised: 12/08/2021 Document Reviewed: 12/08/2021 [employer] Patient Education 2022 [employer]. Follow Up Care 06/01/2023 14:05:36 With:SOLEDAD HERRERA, Yeyo Blum, URL Address: [address] [place] [id number]- When: Unknown [facility] [place] 12-12-2023 Evaluation note* Encounter Date Diagnosis Assessment Notes Treatment Notes Treatment Clinical Notes May, 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) [facility] Other 11-24-2023 Evaluation note* Encounter Date Diagnosis Assessment Notes Treatment Notes Treatment Clinical Notes Apr, Diabetic nephropathy (ICD-10 - E11.21) [facility] Other 11-07-2023 Evaluation note* Encounter Date Diagnosis Assessment Notes Treatment Notes Treatment Clinical Notes Apr, Left arm pain (ICD-10 - M79.602) [facility] Other 11-02-2023 Evaluation note* Encounter Date Diagnosis [...] and to have his surgery as scheduled. [facility] Other 10-24-2023 Evaluation note* Encounter Date Diagnosis Assessment Notes Treatment Notes Treatment Clinical Notes Mar, 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) Mar, Atherosclerotic hear t disease of [place] coronary artery without angina pectoris (ICD-10 - I25.10) [facility] Other 10-11-2023 Evaluation note* Encounter Date Diagnosis [...] No records available as of [facility] from [facility]. He was found to have developed [...] to continue to montior this at home. [facility] Other 10-09-2023 Note [id number] Discharge instructions Patient [...] including vitamins, herbs, eye drops, creams, and axeo-roo-exnzswp medicines. Any problems you or family members [...] provider tells you to take them. Taking uxqe-szg-xudklaq medicines, vitamins, herbs, and supplements. Surgery safety [...] provider. Document Revised: 02/15/2022 Document Reviewed: 02/15/2022 [employer] Patient Education 2022 [employer]. [facility]08-28-2023 Hospital Discharge instructions Patient Education 01/30/2023 [...] including vitamins, herbs, eye drops, creams, and yfzx-zsm-xsyzkzc medicines. ?Whether you are or may be [...] provider. Document Revised: 02/02/2022 Document Reviewed: 12/25/2020 [employer] Patient Education 2022 [employer]. 01/30/2023 11:22:30 Cystoscopy Cystoscopy Cystoscopy is a [...] including vitamins, herbs, eye drops, creams, and dcxy-hmr-isxytbd medicines. Any problems you or family members [...] provider tells you to take them. Taking dfhb-ywt-nmqutor medicines, vitamins, herbs, and supplements. Tests You [...] Follow these instructions at home: Medicines Take efjx-duy-xgvbesi and prescription medicines only as told by [...] provider. Document Revised: 02/02/2022 Document Reviewed: 01/01/2021 [employer] Patient Education 2022 [employer]. Follow Up Care 11/23/2022 13:02:56 With:SOLEDAD HERRERA, Yeyo Blum, URL Address: [facility] [address] , [place] [address]- [phone] When: Unknown Comments:sched cysto/uros [facility] 08-15-2023 Evaluation note* Encounter Date Diagnosis Assessment Notes Treatment Notes Treatment Clinical Notes Jan, Diabetic nephropathy (ICD-10 - E11.21) [facility] Other 06-29-2023 Evaluation note* Encounter Date Diagnosis [...] reviewed. Nov, Atherosclerotic hear t disease of [place] coronary artery without angina pectoris (ICD-10 - I25.10) Encouraged patient to follow with Cardiology as scheduled. [facility] Other 06-21-2023 Hospital Discharge instructions Patient Education [...] provider. Document Revised: 08/11/2021 Document Reviewed: 05/07/2021 [employer] Patient Education 2021 [employer] Follow Up Care 09/14/2022 14:23:26 With:SOLEDAD HERRERA, Yeyo Blum, URL Address: [facility] [address] , [place] [address]- When: Unknown [facility] 05-05-2023 Evaluation note* Encounter Date Diagnosis Assessment Notes Treatment Notes Treatment Clinical Notes October, Erectile dysfunction, unspecified erectile dysfunction type (ICD-10 - N52.9) [facility] Other 04-19-2023 Evaluation note* Encounter Date Diagnosis Assessment Notes Treatment Notes Treatment Clinical Notes Sep, 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) [facility] Other 04-12-2023 Evaluation note* Encounter Date Diagnosis Assessment Notes Treatment Notes Treatment Clinical Notes Sep, Atherosclerotic hear t disease of [place] coronary artery without angina pectoris (ICD-10 - I25.10) Sep, 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) [facility] Other 03-20-2023 Evaluation note* Encounter Date Diagnosis Assessment Notes Treatment Notes Treatment Clinical Notes Aug, Diabetic nephropathy (ICD-10 - E11.21) [facility] Other 03-03-2023 Evaluation note* Encounter Date Diagnosis Assessment Notes Treatment Notes Treatment Clinical Notes Aug, Pain in right leg (ICD-10 - M79.604) [facility] Other 03-02-2023 Evaluation note* Encounter Date Diagnosis Assessment Notes Treatment Notes Treatment Clinical Notes Aug, Pain in right leg (ICD-10 - M79.604) [facility] Other 02-20-2023 Evaluation note* Encounter Date Diagnosis Assessment Notes Treatment Notes Treatment Clinical Notes Jul, Intractable episodic headache, unspecified headache type (ICD-10 - R51.9) [facility] Other 02-14-2023 Evaluation note* Encounter Date Diagnosis Assessment Notes Treatment Notes Treatment Clinical Notes Jul, Acute intractable headache, unspecified headache type (ICD-10 - R51.9) [facility] Other 02-08-2023 Evaluation note* Encounter Date Diagnosis Assessment Notes Treatment Notes Treatment Clinical Notes Jul, Headache (ICD-10 - R51.9) [facility] Other 01-30-2023 Evaluation note* Encounter Date Diagnosis [...] medication and we will continue to monitor. [facility] Other 12-21-2022 Evaluation note* Encounter Date Diagnosis Assessment Notes Treatment Notes Treatment Clinical Notes May, Diabetic nephropathy (ICD-10 - E11.21) [facility] Other 11-21-2022 Evaluation note* Encounter Date Diagnosis Assessment Notes Treatment Notes Treatment Clinical Notes Apr, Diabetic nephropathy (ICD-10 - E11.21) [facility] Other 11-15-2022 Evaluation note* Encounter Date Diagnosis Assessment Notes Treatment Notes Treatment Clinical Notes Apr, Pain in right leg (ICD-10 - M79.604) [facility] Other 10-18-2022 Evaluation note* Encounter Date Diagnosis Assessment Notes Treatment Notes Treatment Clinical Notes Mar, Diabetic nephropathy (ICD-10 - E11.21) [facility] Other 09-13-2022 Evaluation note* Encounter Date Diagnosis Assessment Notes Treatment Notes Treatment Clinical Notes Feb, Hypertensive chronic kidney disease with stage 1 through stage 4 chronic kidney disease, or unspecified chronic kidney disease (ICD-10 - I12.9) [facility] Other 09-13-2022 Evaluation note* Encounter Date Diagnosis [...] scheduled. Feb, Atherosclerotic hear t disease of [place] coronary artery without angina pectoris (ICD-10 - [...] is to continue to follow with the field service specialist as scheduled. Feb, Pain in right [...] Noted upon review of blood work results. [facility] Other 08-19-2022 Evaluation note* Encounter Date Diagnosis Assessment Notes Treatment Notes Treatment Clinical Notes Jan, Diabetic nephropathy (ICD-10 - E11.21) [facility] Other 08-17-2022 Evaluation note* Encounter Date Diagnosis Assessment Notes Treatment Notes Treatment Clinical Notes Jan, Diabetic nephropathy (ICD-10 - E11.21) [facility] Other 07-21-2022 Evaluation note* Encounter Date Diagnosis Assessment Notes Treatment Notes Treatment Clinical Notes Dec, Diabetic nephropathy (ICD-10 - E11.21) [facility] Other 06-22-2022 Evaluation note* Encounter Date Diagnosis Assessment Notes Treatment Notes Treatment Clinical Notes Nov, Diabetic nephropathy (ICD-10 - E11.21) [facility] Other 05-23-2022 Evaluation note* Encounter Date Diagnosis Assessment Notes Treatment Notes Treatment Clinical Notes October, Diabetic nephropathy (ICD-10 - E11.21) [employer] Other 05-17-2022 Evaluation note* Encounter Date Diagnosis [...] E11.59) October, Atherosclerotic hear t disease of [place] coronary artery without angina pectoris (ICD-10 - I25.10) Patient follows with Dr. Inman. For this October, Other He did quit smoking since July 2020 [facility] Other 05-16-2022 Evaluation note* Encounter Date Diagnosis Assessment Notes Treatment Notes Treatment Clinical Notes October, Hypertensive chronic kidney disease with stage 1 through stage 4 chronic kidney disease, or unspecified chronic kidney disease (ICD-10 - I12.9) October, Stage 3 chronic kidney disease, unspecified whether stage 3a or 3b CKD (ICD-10 - N18.30) [facility] Other 05-06-2022 Evaluation note* Encounter Date Diagnosis Assessment Notes Treatment Notes Treatment Clinical Notes October, Pain in right leg (ICD-10 - M79.604) October, Pain in left leg (ICD-10 - M79.605) [facility] Other 04-20-2022 Evaluation note* Encounter Date Diagnosis Assessment Notes Treatment Notes Treatment Clinical Notes Sep, Diabetic nephropathy (ICD-10 - E11.21) [facility] Other 04-19-2022 Evaluation note* Encounter Date Diagnosis Assessment Notes Treatment Notes Treatment Clinical Notes Sep, Anxiety (ICD-10 - F41.9) Sep, Hypertensive chronic kidney disease with stage 1 through stage 4 chronic kidney disease, or unspecified chronic kidney disease (ICD-10 - I12.9) [facility] Other 03-07-2022 Evaluation note* Encounter Date Diagnosis Assessment Notes Treatment Notes Treatment Clinical Notes Aug, Anxiety (ICD-10 - F41.9) [facility] Other 02-22-2022 Evaluation note* Encounter Date Diagnosis [...] 12 pound weight loss from last visit. [facility] Other 01-19-2022 Evaluation note* Encounter Date Diagnosis Assessment Notes Treatment Notes Treatment Clinical Notes Jun, Diabetic nephropathy (ICD-10 - E11.21) [facility] Other Consult note Author Amina Fagan [facility] Note Date/Time August 11, 2024 2:18 pm [facility] [address] [place] [address] Nephrology Consult Note Signed Patient: Myra Pickard SR MR#: [id number] : 1965 Acct:[id number] Age/Sex: 59 / M Adm Date: 5 Loc: 3T Room: [address] [place] [address] Type: ADM IN Attending Dr: Kevon Viera MD Copies to: Aziz Bakhous, MD DO Kevon Guzman MD~ Providers Consult Date: 08/11/24 Requesting Provider: Kevon Viera MD Primary Care Provider: Teresa Lynch DO HPI Reason for Consult: Acute kidney injury on chronic kidney disease with electrolytes imbalance History of Present Illness: This is a 59-year-old male patient with past med history of BPH, COPD, coronaryartery disease, CKD stage IIIb follows with me in renal office, GERD and A-fib, A-fib, diabetes, peripheral vascular disease. Patient presented to the hospitalfor sudden onset of tingling's and numbness all over his body along with dizziness and lightheadedness. Patient had CT of the head in the emergency roomwhich was negative for acute process. Lab revealed creatinine up to 2.6 mg deciliter from baseline at around 2.2 mg deciliter last month. Magnesium is wasfound to be severely low at 0.5 mg deciliter, calcium 6.1, potassium 3.1. Patient was admitted and received 6 g of magnesium sulfate in addition to 1 g ofcalcium gluconate and 40 mill equivalents of oral potassium. Patient also started on IV fluid normal saline with 20 mill equivalent KCl at 125 cc/h. Patient also was found to have vitamin B12 deficiency and started on oral supplement. Patient also has iron deficiency with iron saturation 7% and ferritin 5.3. Hemoglobin 11.6 Renal team was consulted for acute kidney injury on chronic kidney disease. I reviewed the patient's home medications. He is on albuterol, Plavix, tamsulosin, insulin, metformin, magnesium, Trulicity, Jardiance, Januvia, glimepiride, pregabalin, doxycycline, Lasix, isosorbide mononitrate, metoprolol,valsartan/hydrochlorothiazide Patient denied urinary obstructive symptoms. No NSAID use Review of Systems Review of Systems Review of systems: I reviewed 12 system review is negative today [facility] Medical History Chronic obstructive pulmonary disease, unspecified Hyperbilirubinemia Hypothermia Vitamin D deficiency 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 Restless legs syndrome Peripheral vascular disease Peripheral edema Lung nodule Insulin long-term use Insomnia Hypotestosteronemia Hypertensive chronic kidney disease with stage 1 through stage 4 chronic kidney disease, or unspecified chronic kidney disease Gout GERD (gastroesophageal reflux disease) Erectile dysfunction Contracture of hand Claudication of both lower extremities Cigarette nicotine dependence with nicotine-induced disorder Bladder mass Atrial fibrillation Atherosclerotic heart disease of [place] coronary artery with unspecified angina pectoris Anxiety Hx of exercise stress test Family history of premature CAD Reports mother had quadruple bypass at age of 45 Myocardial infarction mild Fibromyalgia Chronic back pain Sleep apnea Neuropathy Cataract Peripheral artery disease Hyperlipidemia Diabetes Hypertension Surgical History History of below-knee amputation of right lower extremity 02/2024 [facility] by Dr. Simon Hernández Vascular History of artificial lens replacement Hx of [...] Tobacco Type: cigarettes Substance Use Type: None Substance Abuse Comment: etoh occasionally Social History Comments: mobile home Meds Medications & Allergies Allergies Penicillins Allergy (Unknown, Verified 08/11/24 04:06) Anaphylaxis latex Allergy (Verified 08/11/24 04:06) Unknown Reaction Home Medications albuterol sulfate 90 mcg/actuation aerosol inhaler (ProAir HFA) 2 puff inhalation Q6HR PRN Shortness Of Breath 06/28/19 [History Confirmed 08/11/24] nitroglycerin 0.4 mg sublingual tablet (Nitrostat) 0.4 mg sublingual Q5-15M PRN chest pain 07/12/23 [History Confirmed 08/11/24] flash glucose scanning reader (Natanael Ulien Jigar 2 Ensign) #1 ea 12/28/23 [Rx Confirmed 08/11/24] flash glucose sensor (FreeStyle Jigar 2 Sensor kit) #1 ea 12/28/23 [Rx Confirmed 08/11/24] tiotropium bromide 18 mcg capsule with inhalation device (Spiriva with HandiHaler) 1 cap inhalation DAILY 03/03/24 [History Confirmed 08/11/24] clopidogrel 75 mg tablet 75 mg PO DAILY 03/08/24 [History Confirmed 08/11/24] tamsulosin 0.4 mg capsule (Flomax) 0.4 mg PO BID 03/08/24 [History Confirmed 08/11/24] insulin syringe,safety needle 1 mL 30 gauge x 1/2 #100 ea 03/29/24 [Rx Confirmed 08/11/24] aspirin 81 mg tablet,delayed release 81 mg PO DAILY 04/05/24 [History Confirmed 08/11/24] budesonide-formoterol HFA 160 mcg-4.5 mcg/actuation aerosol inhaler 2 puff inhalation BID 04/05/24 [History Confirmed 08/11/24] metformin 1,000 mg tablet 1,000 mg PO BID 04/05/24 [History Confirmed 08/11/24] sildenafil 100 mg tablet 100 mg PO DAILY PRN sexual activity #30 tabs 04/05/24 [Rx Confirmed 08/11/24] pen needle, diabetic 32 gauge x 5/32 (Comfort EZ Pen Chadron) #100 ea 04/15/24 [Rx Confirmed 08/11/24] hydroxyzine HCl 25 mg tablet 25 mg PO QHS #90 tabs 05/06/24 [Rx Confirmed 05/07/24] amitriptyline 25 mg tablet 25 mg PO DAILY 05/07/24 [History Confirmed 08/11/24] fremanezumab-vfrm 225 mg/1.5 mL subcutaneous auto-injector (Ajovy) 225 mg subcutQMONTH 05/07/24 [History Confirmed 08/11/24] magnesium oxide 400 mg PO DAILY #90 tabs 05/07/24 [Rx Confirmed 05/07/24] rimegepant 75 mg disintegrating tablet (Nurtec ODT) 75 mg PO Q48HR 05/07/24 [History Confirmed 08/11/24] dulaglutide 0.75 mg/0.5 mL subcutaneous pen injector (Trulicity) 0.75 mg (0.5 mL) subcut QWEEK #2 mL 06/25/24 [Rx Confirmed 08/11/24] empagliflozin 10 mg tablet (Jardiance) 10 mg PO DAILY #90 tabs 06/25/24 [Rx Confirmed 08/11/24] omeprazole 40 mg capsule,delayed release 40 mg PO DAILY #90 caps 06/25/24 [Rx Confirmed 08/11/24] sitagliptin phosphate 100 mg tablet (Januvia) 100 mg PO DAILY #90 tabs 06/25/24 [Rx Confirmed 08/11/24] atorvastatin 80 mg tablet 80 mg PO DAILY #90 tabs 06/27/24 [Rx Confirmed 08/11/24] clonazepam 0.5 mg tablet (Klonopin) 0.5 mg PO .every morning 30 days #30 tabs 06/27/24 [Rx] glimepiride 2 mg tablet 2 mg PO BID #180 tabs 06/27/24 [Rx Confirmed 08/11/24] pregabalin 200 mg capsule 200 mg PO TID 90 days #270 caps 06/27/24 [Rx Confirmed 08/11/24] hydrocodone 5 mg-acetaminophen 325 mg tablet 1 tab PO Q4-6H PRN pain 2 days #6 tabs 07/16/24 [Rx] doxycycline hyclate 100 mg capsule 100 mg PO BID 08/11/24 [History Confirmed 08/11/24] furosemide 40 mg tablet (Lasix) 40 mg PO DAILY 08/11/24 [History Confirmed 08/11/24] isosorbide mononitrate 30 mg tablet,extended release 24 hr 30 mg PO DAILY 08/11/24 [History Confirmed 08/11/24] metoprolol tartrate 25 mg tablet 100 mg PO BID 08/11/24 [History Confirmed 08/11/24] ropinirole 0.5 mg tablet 1 mg PO TID 08/11/24 [History Confirmed 08/11/24] tizanidine 4 mg tablet 4 mg PO QHS 08/11/24 [History Confirmed 08/11/24] valsartan 160 mg-hydrochlorothiazide 12.5 mg tablet (Diovan HCT) 1 tab PO DAILY 08/11/24 [History Confirmed 08/11/24] Active Medications: Active Medications Acetaminophen (Acetaminophen 325 Mg Tablet) 650 mg PO Q4H PRN PRN Reason: Pain Scale 1 - 5 Stop: 08/11/25 05:38 Last Admin: 08/11/24 06:59 Dose: 650 mg Albuterol (Albuterol Neb 2.5 Mg/3 Ml Vial.Neb) 2.5 mg INHALATION Q2H PRN PRN Reason: Shortness Of Breath Stop: 08/11/25 05:38 Amitriptyline HCl (Amitriptyline 25 Mg Tablet) 25 mg PO HS SATISH Stop: 08/11/25 21:59 Aspirin (Aspirin 81 Mg Tablet.Dr) 81 mg PO DAILY SATISH Stop: 08/11/25 08:59 Last Admin: 08/11/24 09:13 Dose: 81 mg Atorvastatin Calcium (Atorvastatin 80 Mg Tablet) 80 mg PO DAILY SATISH Stop: 08/11/25 08:59 Last Admin: 08/11/24 09:14 Dose: 80 mg Budesonide/Formoterol Fumarate (Budesonide/Formoterol 160-4.5 Mcg 60 Puff/6 Gm Hfa.Aer.Ad) 2 puff INHALATION BID SATISH Stop: 08/11/25 08:59 Last Admin: 08/11/24 09:41 Dose: 2 puff Calcium Carbonate (Calcium Carbonate/Vitamin D3 500 Mg/200 Unit Tablet) 2 tab PO TID.WITH.MEALS SATISH Stop: 08/11/25 07:59 Last Admin: 08/11/24 13:40 Dose: 2 tab Clopidogrel Bisulfate (Clopidogrel Bisulfate 75 Mg Tablet) 75 mg PO DAILY SATISH Stop: 08/11/25 08:59 Last Admin: 08/11/24 09:14 Dose: 75 mg Cyanocobalamin (Cyanocobalamin 1,000 Mcg/Ml Vial) 1,000 mcg IM DAILY SATISH Stop: 08/17/24 09:01 Last Admin: 08/11/24 09:14 Dose: 1,000 mcg Dextrose (Dextrose 50% In Water 25 Gm/50 Ml Syringe) 0 gm IV-PUSH PRN PRN PRN Reason: Hypoglycemia Stop: 08/11/25 05:38 Docusate Sodium (Docusate 100 Mg Capsule) 200 mg PO BID PRN PRN Reason: Constipation Stop: 08/11/25 05:38 Glucose (Dextrose 40% Gel 15 Gm Tube) 0 gm PO PRN PRN PRN Reason: Hypoglycemia Stop: 08/11/25 05:38 Heparin Sodium (Porcine) (Heparin 5,000 Unit/Ml Vial) 5,000 unit SUBCUT Q12HR [facility] Stop: 08/11/25 08:59 Last Admin: 08/11/24 09:14 Dose: 5,000 unit Hydralazine HCl (Hydralazine 20 Mg/Ml Vial) 10 mg IV-PUSH Q4H PRN PRN Reason: if SBP > 185 Stop: 08/11/25 05:38 Magnesium Sulfate (Magnesium Sulf 4 Gm-*Swfi*) 4 gm in 100 mls @ 12.5 mls/hr IVONCE ONE Stop: 08/11/24 16:39 Last Admin: 08/11/24 09:14 Dose: 12.5 mls/hr Potassium Chloride/Sodium Chloride (0.9 % Nacl-20 Meq Kcl) 1,000 mls @ 125 mls/hr IV .Q8H [facility] Stop: 08/11/25 07:14 Last Admin: 08/11/24 11:51 Dose: 125 mls/hr Insulin Aspart (Insulin Aspart 300 Units/3 Ml) 0 units SUBCUT TID.[facility]; Protocol Stop: 08/11/25 07:59 Last Admin: 08/11/24 13:40 Dose: Not Given Ipratropium [place] (Ipratropium [place] 0.5 Mg/2.5 Ml Vial.Neb) 0.5 mg INHALATION QID.RESP [facility] Stop: 08/11/25 07:59 Last Admin: 08/11/24 13:00 Dose: 0.5 mg Isosorbide Mononitrate (Isosorbide Mononitrate 24hr Er 30 Mg Tab.Er.24h) 30 mg PO DAILY [facility] Stop: 08/11/25 08:59 Last Admin: 08/11/24 09:13 Dose: 30 mg Metoprolol Tartrate (Metoprolol Tartrate 100 Mg Tablet) 100 mg PO BID [facility] Stop: 08/11/25 08:59 Last Admin: 08/11/24 09:13 Dose: 100 mg Pantoprazole Sodium (Pantoprazole 40 Mg Tablet.Dr) 40 mg PO BID [facility] Stop: 08/11/25 08:59 Last Admin: 08/11/24 09:13 Dose: 40 mg Pregabalin (Pregabalin 75 Mg Capsule) 75 mg PO TID [facility] Stop: 02/07/25 08:59 Last Admin: 08/11/24 13:40 Dose: 75 mg Ropinirole HCl (Ropinirole 1 Mg Tablet) 1 mg PO TID [facility] Stop: 08/11/25 08:59 Last Admin: 08/11/24 13:40 Dose: 1 mg Tamsulosin HCl (Tamsulosin 0.4 Mg Cap.Er.24h) 0.4 mg PO BID [facility] Stop: 08/11/25 08:59 Last Admin: 08/11/24 09:13 Dose: 0.4 mg Tizanidine HCl (Tizanidine 4 Mg Tablet) 4 mg PO QHS [facility] Stop: 08/11/25 21:59 Exam Physical Exam Vital Signs: Temp Pulse Resp BP Pulse Ox O2 Del Method 98.0 F 67 18 100/65 98 Room Air 08/11/24 08:52 08/11/24 13:38 08/11/24 13:38 08/11/24 13:38 08/11/24 13:38 08/11/24 13:38 Results - Nephrology Labs 08/11/24 04:15 08/11/24 04:15 Labs: 08/11/24 08/11/24 04:15 08:30 BUN 26 H Creatinine 2.62 H Phosphorus 4.8 H Iron Saturation 7.0 L Ferritin 5.3 L Albumin 4.2 25-OH Vitamin D Total 15.0 L PTH Intact 38.3 Urine Color Light-yellow Urine Appearance Clear Urine pH 5.5 Ur Specific [place] 1.024 Urine Protein Negative Urine Glucose (UA) 500 H Urine Ketones Negative Urine Occult Blood Negative Urine Nitrite Negative Ur Leukocyte Esterase Negative Radiology Impressions Impressions - last 24 hours: Impressions Chest X-Ray 08/11/24 04:22 IMPRESSION: No acute process. Impression dictated by: Sudeep Lind M.D.08/11/2024 10:06 AM Dictation Location: [place] [address] 08/11/24 04:22 IMPRESSION: No acute findings. Preliminary 5:00 AM 08/11/2024 CTA Head and Neck TECHNIQUE: Axial imaging of the head and neck with 2-D and 3-D reconstruction. 90cc of Isovue-370. The CT exam was performed using one or more the following dose reduction techniques: Automated exposure control, adjustment of the MA and/or Kv according to patient size, or use of the iterative reconstruction technique. Stenoses were measured using the NASCET criteria. COMPARISON: 03/08/2024 HISTORY: Left-sided weakness and numbness The visualized aortic arch and great vessels are unremarkable. Subclavian arteries are patent No carotid dissection, critical stenosis or occlusion identified. No vertebral dissection, occlusion or abrupt cut off identified. The carotid siphons and vertebral basilar systems are patent. Atherosclerosis of the carotid siphons without significant stenosis No intracranial aneurysm, dissection, abrupt cut off or critical stenosis identified.. . IMPRESSION: No occlusion, critical stenosis or dissection of the extracranial orintracranial circulation. Impression dictated by: Sudeep Lind M.D.08/11/2024 10:06 AM Dictation Location: [place] [address] Any impression(s) listed above is documentation that was entered by the reading physician into a diagnostic report(s) for Myra Pickard SR. I have reviewed the report(s) and am incorporating any findings in the treatment plan of this patient where applicable. A&P - Nephrology Assessment/Plan (1) Acute kidney injury superimposed on CKD: Assessment/Problem Details: Patient has CKD stage IIIb from diabetic and hypertensive nephropathy. Baselinecreatinine fluctuate depending on the volume status and variation in blood pressure. Patient received IV contrast at admission for CTA of the head. Serumcreatinine at presentation 2.6 mg deciliter. Patient stated he has been making urine. (2) Hypomagnesemia: Assessment/Problem Details: Patient has been on PPI twice daily for GERD symptoms. He follows with Dr. Burleson in GI clinic. Magnesium level at presentation 0.5 mmol/L. Patient received 6 g of magnesium sulfate (3) Hypocalcemia: Assessment/Problem Details: This is likely from hypomagnesemia. Serum calcium level 6.1 on presentation. Patient received 1 g of calcium gluconate (4) Hypokalemia: Assessment/Problem Details: This is likely also from hypomagnesemia. Patient received 40 mill equivalent p.o. at admission and currently on IV KCl and normal saline (5) Iron deficiency: Assessment/Problem Details: Lab study revealed iron saturation only 7% with very low ferritin level. (6) Vitamin B12 deficiency: Assessment/Problem Details: Serum vitamin B12 level at admission 129. Patient currently on cyanocobalamin 10 mcg p.o. daily (7) BPH loc w urin obs/LUTS: Assessment/Problem Details: patient takes Flomax twice daily at home Plan * There is no indication for renal placement therapy. * Patient at risk for worsening kidney function from IV IV contrast exposure at admission * Continue holding home Jardiance, valsartan/hydrochlorothiazide and Lasix. * Agree with IV fluid normal saline * Continue accurate urine output documentation * Continue to monitor electrolytes and replace as needed * Will start the patient on loading dose of Ferrlecit 250 mg X4 * Continue vitamin B12 supplement * Check CBC renal function panel in a.m. Thank you for allowing me to participate in Mr. Pickard's care. Renal team will continue to follow. Call if any question or concern Documented By: Amina Fagan MD 08/11/24 1400 Signed By: <Electronically signed by Amina Fagan MD> 08/11/24 1413 [facility] Work Phone: [place] [address] Cardiology Consult Note Signed Patient: Myra Pickard SR MR#: [id number] : 1965 Acct:[id number] Age/Sex: 59 / M Adm Date: 5 Loc: Room: [address] [place] [address] Type: ADM INOo Attending Dr: Abdullahi Canchola DO Copies to: DO Pascale Guzman MD, [facility] Abdullahi Canchola DO~ Cardiology HPI History of Present Illness Consult Date: 10/11/24 Reason for Consult: Chest pain HPI: Mr. Pickard is a 59 year old male who is being seen at request of the hospitalist for evaluation of chest pain. Patient has history of CAD and previous PCI of the RCA. Left heart catheterization 2017 revealed patent stent. He had nuclearstress test in 2022 which was normal. Repeat stress test I believe February 2024 prior to right below-knee amputation was normal. He presented with recurrent symptoms of what he describes as sharp pain in the front of the chest at rest stabbing in nature with no radiation and no associated symptoms of palpitations, diaphoresis, dizziness syncope or near syncope. The pain does notrespond to nitroglycerin. He has previously followed with Dr. Inman. The patient and his both are actively smoking. He has severe PAD status post right below-knee amputation February 2024 in [place]. He has COPD followed by pulmonary medicine in [place]. His EKG showed no acute changes his enzymes were normal and his BNP was normal. He has no family history of abnormal ejection fraction. He does have stage IV chronic kidney disease along with hyperlipidemia, he is nondiabetic with no previous cardiac arrhythmias and no history of cerebrovascular disease. At the present time the patient resting comfortably without any complaints and based on the data available he can be discharged home today. I suggested for the sake of completeness consideration for outpatient stress test but I prefer that he gets seen first by his primary field service specialist in the office, I emphasized to the patient and his the need for tobacco cessation for good Review of Systems Review of Systems Review of systems: Patient has intermittent symptoms of atypical chest pain requiring ER visits. He has no syncope no resting pain in the left leg. No palpitations, no nausea or vomiting, no abdominal pain no diarrhea and denies any urinary symptoms. Other review of system was unremarkable 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 Restless legs syndrome Peripheral vascular disease Peripheral edema Lung nodule Insulin long-term use Insomnia Hypotestosteronemia Hypertensive chronic kidney disease with stage 1 through stage 4 chronic kidney disease, or unspecified chronic kidney disease Gout GERD (gastroesophageal reflux disease) Erectile dysfunction Contracture of hand Claudication of both lower extremities Cigarette nicotine dependence with nicotine-induced disorder Bladder mass Atrial fibrillation Atherosclerotic heart disease of [place] coronary artery with unspecified angina pectoris Anxiety Hx of exercise stress test Family history of premature CAD Reports mother had quadruple bypass at age of 45 Myocardial infarction mild Fibromyalgia Chronic back pain Sleep apnea Neuropathy Cataract Peripheral artery disease Hyperlipidemia Diabetes Hypertension Surgical History History of below-knee amputation of right lower extremity 02/2024 [facility] by Dr. Simon Hernández Vascular History of artificial lens replacement Hx of [...] Tobacco Type: cigarettes Substance Use Type: None Substance Abuse Comment: etoh occasionally Social History Comments: mobile home Meds Medications and Allergies Allergies Penicillins Allergy (Unknown, Verified 10/10/24 14:40) Anaphylaxis latex Allergy (Verified 10/10/24 14:40) Unknown Reaction Home Medications albuterol sulfate 90 mcg/actuation aerosol inhaler (ProAir HFA) 2 puff inhalation Q6HR PRN Shortness Of Breath 06/28/19 [History Confirmed 10/10/24] nitroglycerin 0.4 mg sublingual tablet (Nitrostat) 0.4 mg sublingual Q5-15M PRN chest pain 07/12/23[History Confirmed 10/10/24] flash glucose scanning reader (UlmonStyle Jigar 2 Ensign) #1 ea 12/28/23 [Rx Confirmed 10/10/24] flash glucose sensor (FreeStyle Jigar 2 Sensor kit) #1 ea 12/28/23 [Rx Confirmed 10/10/24] tiotropium bromide 18 mcg capsule with inhalation device (Spiriva with HandiHaler) 1 cap inhalationDAILY 03/03/24 [History Confirmed 10/10/24] tamsulosin 0.4 mg capsule (Flomax) 0.4 mg PO BID 03/08/24 [History Confirmed 10/10/24] insulin syringe,safety needle 1 mL 30 gauge x 1/2 #100 ea 03/29/24 [Rx Confirmed 10/10/24] aspirin 81 mg tablet,delayed release 81 mg PO DAILY 04/05/24 [History Confirmed 10/10/24] budesonide-formoterol HFA 160 mcg-4.5 mcg/actuation aerosol inhaler 2 puff inhalation BID 04/05/24 [History Confirmed 10/10/24] sildenafil 100 mg tablet 100 mg PO DAILY PRN sexual activity #30 tabs 04/05/24 [Rx Confirmed 10/10/24] pen needle, diabetic 32 gauge x /32 (Comfort EZ Pen Chadron) #100 ea 04/15/24 [Rx Confirmed 10/10/24] hydroxyzine HCl 25 mg tablet 25 mg PO QHS #90 tabs 05/06/24 [Rx Confirmed 10/10/24] dulaglutide 0.75 mg/0.5 mL subcutaneous pen injector (Trulicity) 0.75 mg (0.5 mL) subcut QWEEK #2 mL 06/25/24 [Rx Confirmed 10/10/24] empagliflozin 10 mg tablet (Jardiance) 10 mg PO DAILY #90 tabs 06/25/24 [Rx Confirmed 10/10/24] sitagliptin phosphate 100 mg tablet (Januvia) 100 mg PO DAILY #90 tabs 06/25/24 [Rx Confirmed 10/10/24] atorvastatin 80 mg tablet 80 mg PO DAILY #90 tabs 06/27/24 [Rx Confirmed 10/10/24] glimepiride 2 mg tablet 2 mg PO BID #180 tabs 06/27/24 [Rx Confirmed 10/10/24] furosemide 40 mg tablet (Lasix) 40 mg PO DAILY 08/11/24 [History Confirmed 10/10/24] isosorbide mononitrate 30 mg tablet,extended release 24 hr 30 mg PO DAILY 08/11/24 [History Confirmed 08/30/24] metoprolol tartrate 25 mg tablet 50 mg PO BID 08/11/24 [History Confirmed 10/10/24] ropinirole 0.5 mg tablet 0.5 mg PO TID 08/11/24 [History Confirmed 10/11/24] tizanidine 4 mg tablet 4 mg PO QHS 08/11/24 [History Confirmed 10/10/24] valsartan 160 mg-hydrochlorothiazide 12.5 mg tablet (Diovan HCT) 1 tab PO DAILY 08/11/24 [History Confirmed 10/10/24] amitriptyline 25 mg tablet 25 mg PO DAILY #90 tabs 08/30/24 [Rx Confirmed 10/10/24] magnesium oxide 400 mg PO DAILY #90 tabs 09/05/24 [Rx Confirmed 10/10/24] clonazepam 0.5 mg tablet (Klonopin) 0.5 mg PO .every morning 30 days #30 tabs 09/11/24 [Rx Confirmed 10/10/24] clopidogrel 75 mg tablet 75 mg PO DAILY #90 tabs 09/12/24 [Rx Confirmed 10/10/24] metformin 1,000 mg tablet 1,000 mg PO BID #180 tabs 09/12/24 [Rx Confirmed 10/10/24] omeprazole 40 mg capsule,delayed release 40 mg PO DAILY 10/10/24 [History Confirmed 10/10/24] pregabalin 75 mg capsule (Lyrica) 225 mg PO TID 10/10/24 [History Confirmed 10/10/24] Exam Physical Exam Vital Signs: Temp Pulse Resp BP Pulse Ox O2 Del Method 97.7 F 66 20 114/67 97 Room Air 10/10/24 20:48 10/11/24 08:51 10/11/24 08:51 10/11/24 04:00 10/10/24 20:48 10/11/24 00:00 Const General: cooperative, comfortable and no acute distress Nutritional Appearance: overweight Orientation: alert, awake and oriented x3 HEENT Head: normal to inspection, normocephalic and atraumatic Ears: hearing grossly normal bilaterally Nose: external nose normal Face and sinus: normal facial exam Eyes Conjunctivae: conjunctivae normal Pupils: PERRL Neck Neck: trachea midline and supple Neck mass: No Thyroid: thyroid normal Carotids: normal carotid upstroke Resp Effort & Inspection: normal respiratory effort Auscultation: crackles, diminished lung sounds, rhonchi and wheezes Cardio Jugular venous pressure: no JVD Palpation: normal PMI Rate: regular rate Rhythm: regular rhythm Heart Sounds: S1 normal and S2 normal GI Inspection: normal to inspection Palpation: soft and no hepatosplenomegaly Auscultation: normal bowel sounds Extrem General: other (Right below-knee amputation) Results - Cardiology Labs 10/11/24 04:45 10/11/24 04:45 Lab results: Cardiac Enzymes 10/10/24 10/10/24 10/11/24 Range/Units 15:42 23:32 04:45 Total Creatine Kinase 126 101 91 (30-223) U/L B-Natriuretic Peptide 17.0 (5-100) pg/mL CBC 10/10/24 10/11/24 Range/Units 15:42 04:45 RBC 5.62 H 5.09 (3.90-5.60) x10E6/uL Hgb 14.4 13.1 (13.0-17.0) g/dL Hct 42.4 38.9 (38.8-50.0) % Plt Count 203 176 (150-450) x10E3/uL Neut # (Auto) 5.3 4.6 (1.8-7.7) x10E3/uL Lymph # (Auto) 2.0 2.0 (1.00-4.8) x10E3/uL O'Brien # (Auto) 0.8 0.9 H (0.0-0.8) x10E3/uL Eos # (Auto) 0.3 0.3 (0.0-0.45) x10E3/uL Baso # (Auto) 0.1 0.1 (0.0-0.2) x10E3/uL Comprehensive Metabolic Panel 10/10/24 10/11/24 Range/Units 15:42 04:45 Sodium 135 L 136 (136-145) mmol/L Potassium 4.1 4.2 (3.5-5.1) mmol/L Chloride 98 99 (98-107) mmol/L Carbon Dioxide 25.6 25.5 (21.0-31.0) mmol/L BUN 41 H 39 H (7-25) mg/dL Creatinine 2.51 H 2.43 H (0.70-1.30) mg/dL Glucose 278 H 221 H (70-100) mg/dL Calcium 9.7 8.9 (8.6-10.3) mg/dL Intake and Output 10/10/24 10/11/24 10/11/24 23:59 07:59 15:59 Intake Total 650 / 650 Output Total 650 / 650 675 / 675 Balance -650 / -650 - Intake: Oral 650 / 650 Output: Urine 650 / 650 675 / 675 Other: # Bowel Movements 0 Weight 92.6 kg 92.6 kg Date of Last Bowel Movement 10/10/24 10/10/24 Patient Weight 10/11/24 23:59 Weight 92.6 kg Lab 10/10/24 15:42 PT 11.4 INR 1.0 EKG Interpretations EKG Attestation EKG: I reviewed this ECG and interpreted as documented below: (Normal sinus rhythm withfirst-degree AV block) A&P - Cardiology (1) Chest pain: Assessment/Problem Details: Atypical in nature with normal EKG and normal cardiac enzymes, unlikely to be cardiac and most likely musculoskeletal Plan: Follow-up with cardiology with consideration for stress test, tobacco cessation,discharged home today Code(s): R07.9 - Chest pain, unspecified (2) Chronic obstructive pulmonary disease, unspecified: Assessment/Problem Details: Presently active while continuously smoking Plan: Tobacco cessation, continue present therapy for COPD and follow-up with pulmonary medicine Qualifiers: COPD type: unspecified COPD Qualified Code(s): J44.9 - Chronic obstructive pulmonary disease, unspecified Code(s): J44.9 - Chronic obstructive pulmonary disease, unspecified (3) History of below-knee amputation of right lower extremity: Plan: Tobacco cessation, antiplatelet therapy, statin therapy Code(s): Z89.511 - Acquired absence of right leg below knee (4) Hyperlipidemia: Plan: Continue high intensity statin Qualifiers: Hyperlipidemia type: unspecified Qualified Code(s): E78.5 - Hyperlipidemia, unspecified Code(s): E78.5 - Hyperlipidemia, unspecified (5) Chronic kidney disease: Assessment/Problem Details: Stage IV Plan: avoid nephrotoxic medications Code(s): N18.9 - Chronic kidney disease, unspecified (6) CAD (coronary artery disease): Assessment/Problem Details: Status post PCI of the RCA, nuclear stress test February 2024 in [place] was normal Plan: Continue aggressive risk factors modifications, tobacco cessation, dual antiplatelet therapy, high intensity statin Code(s): I25.10 - Atherosclerotic heart disease of [place] [place] coronary artery without angina pectoris Documented By: Pascale Arnold MD, [facility] 5 [id number] Signed By: 10/11/24 [facility] March 06, 2024 4:23pm Note Date/Time March 06, 2024 3: 58pm [facility] [address] [place] [address] Discharge Summary Signed Patient: MatteoMyra María CHRISTIAN MR#: [id number] : 1965 Acct:[id number] Age/Sex: 58 / M Adm Date: 4 Loc: 3T Room: [address] [place] [address]: João Powell MD Copies to: [...] neuropathy status post right BKA recently at [facility]. He presents today with episodes of lightheadedness [...] Instructions: As directed (DME) FreeStyle Jigar 2 Ensign Misc See Rx Instructions .ROUTE Qty: 1 [...] % (Auto) N/A, Lymph % (Auto) N/A, O'Brien % (Auto) N/A, Eos % (Auto) N/A, Baso % (Auto) N/A, Nucleat RBC Rel Count N/A, Neut # (Auto) N/A, Lymph # (Auto) N/A, O'Brien # (Auto) N/A, Eos # (Auto) N/A, [...] 106 Documented By: João Powell MD 03/06/24 5692 Signed By: <Electronically signed by João Powell MD> 03/06/24 1623 [facility] Work Phone: Discharge summary Author Kevon Viera [facility] Note Date/Time August 13, 2024 2:3 9pm [facility] [address] [place], [place] [id number] Discharge Summary Signed Patient: Myra Pickard SR MR#: [id number] : 1965 Acct:[id number] Age/Sex: 59 / M Adm Date: 5 Loc: 3T Room: [address] [place] [address]: Kevon Viera MD Copies to: DO Kevon Guzman MD~ Providers Date of Discharge: 08/13/24 Discharging Provider: Kevon Viera Primary Care Provider: Teresa Lynch Consults: 08/11/24 05:40 Consult to Nephrology Routine Comment: Consulting Provider: Amina Fagan Has Provider Been Notified: Yes Date of Notification: 08/11/24 Time of Notification: 07:18 Reason for Consult: Renal Failure 08/11/24 05:41 Consult to Occupational Therapy Routine Comment: Physician Instructions: Consult to OT for:: Evaluation and Treat Consult to Physical Therapy Routine Comment: Physician Instructions: Consult to PT for:: Evaluation and Treat Discharge Diagnosis (1) Acute kidney injury superimposed on CKD: (2) Hypomagnesemia: (3) Hypocalcemia: (4) Hypokalemia: (5) Iron deficiency: (6) Vitamin B12 deficiency: (7) BPH loc w urin obs/LUTS: Final Diagnosis Final Discharge Diagnosis: as above Summary Hospital Course Hospital course: This is a 59-year-old male patient with past med history of BPH, COPD, coronaryartery disease, CKD stage IIIb follows with me in renal office, GERD and A-fib, A-fib, diabetes, peripheral vascular disease. Patient presented to the hospitalfor sudden onset of tingling's and numbness all over his body along with dizziness and lightheadedness. Patient had CT of the head in the emergency roomwhich was negative for acute process. Lab revealed creatinine up to 2.6 mg deciliter from baseline at around 2.2 mg deciliter last month. Magnesium is wasfound to be severely low at 0.5 mg deciliter, calcium 6.1, potassium 3.1. Patient was admitted and received 6 g of magnesium sulfate in addition to 1 g ofcalcium gluconate and 40 mill equivalents of oral potassium. Patient also started on IV fluid normal saline with 20 mill equivalent KCl at 125 cc/h. Patient also was found to have vitamin B12 deficiency and started on oral supplement. Patient also has iron deficiency with iron saturation 7% and ferritin 5.3. Hemoglobin 11.6. Nephrology was consulted. During hospital course, patient was started on IV fluids continuous as noted andrequired multiple IV and p.o. supplements of potassium, magnesium, calcium with serial labs to monitor for improvement. Nephrology input appreciated, as of today patient blood work showed much improvement and kidney function has improved as well close to his baseline. We had to hold his Jardiance, valsartanand hydrochlorothiazide and adjusted his pregabalin given change in creatinine clearance, patient is much improved and feels back to his baseline, his presenting symptoms have resolved. Patient is medically stable for discharge from nephrology standpoint. Patient was evaluated by PT/OT who recommended inpatient rehab where the patient is identified to go home. Okay to resume valsartan, hydrochlorothiazide, Jardiance as per nephrology recommendation, continue to hold Lasix, will need to follow-up with nephrology office as indicated with repeat blood work as directed. discussed with patient at bedside,all questions answered, patient in agreement and comfortable with the plan. Condition Condition at Discharge: Stable Status at Discharge Overall status at discharge: patient is back to baseline Time Spent with Patient Time spent providing/coordinating discharge services (# min): 41 Discharge Plan Discharge Plan Patient Disposition: Home Activity: Ambulate as Tolerated Diet: Regular Instructions: Know your Meds Prescriptions: New calcium carbonate-vitamin D3 [Oyster Shell Calcium-Vit D3] 500 mg-5 mcg (200 unit) Tablet 2 tab PO TID.WITH.MEALS Qty: 90 0RF pregabalin 75 mg Capsule 75 mg PO TID 30 Days Qty: 90 0RF Continued (DME) pen needle, diabetic [Comfort EZ Pen Chadron] 32 gauge x 5/32 needle See Rx Instructions .Route Qty: 100 5RF Rx Instructions: As directed hydroxyzine HCl 25 mg tablet 25 mg PO QHS Qty: 90 1RF Trulicity 0.75 mg/0.5 mL pen injector 0.75 mg subcut QWEEK Qty: 2 3RF Jardiance 10 mg tablet 10 mg PO DAILY Qty: 90 3RF omeprazole 40 mg capsule,delayed release(DR/EC) 40 mg PO DAILY Qty: 90 3RF Januvia 100 mg tablet 100 mg PO DAILY Qty: 90 3RF clonazepam [Klonopin] 0.5 mg tablet 0.5 mg PO .every morning 30 Days Qty: 30 1RF atorvastatin 80 mg tablet 80 mg PO DAILY Qty: 90 1RF glimepiride 2 mg tablet 2 mg PO BID Qty: 180 1RF albuterol sulfate [ProAir HFA] 90 mcg/actuation Hfa Aerosol Inhaler 2 puff INHALATION Q6HR PRN (Reason: Shortness Of Breath) tiotropium bromide [Spiriva with HandiHaler] 18 mcg capsule, w/inhalation device 1 cap inhalation DAILY Rx Instructions: puncture 1 cap using device; one dose = 2 inhalations isosorbide mononitrate 30 mg tablet extended release 24 hr 30 mg PO DAILY tizanidine 4 mg tablet 4 mg PO QHS valsartan-hydrochlorothiazide [Diovan HCT] 160-12.5 mg tablet 1 tab PO DAILY ropinirole 0.5 mg tablet 1 mg PO TID metoprolol tartrate 25 mg Tablet 100 mg PO BID Rx Instructions: Hold for SBP < 125 or HR < 70 nitroglycerin [Nitrostat] 0.4 mg tablet, sublingual 0.4 mg sublingual Q5-15M PRN (Reason: chest pain) Rx Instructions: do not exceed 3 doses per episode clopidogrel 75 mg tablet 75 mg PO DAILY tamsulosin [Flomax] 0.4 mg capsule 0.4 mg PO BID budesonide-formoterol 160-4.5 mcg/actuation HFA aerosol inhaler 2 puff inhalation BID aspirin 81 mg tablet,delayed release (DR/EC) 81 mg PO DAILY metformin 1,000 mg tablet 1,000 mg PO BID sildenafil 100 mg tablet 100 mg PO DAILY PRN (Reason: sexual activity) Qty: 30 0RF Rx Instructions: administer 30 minutes to 4 hours before activity (DME) insulin syringe,safety needle 1 mL 30 gauge x 1/2 syringe See Rx Instructions .Route Qty: 100 5RF Rx Instructions: As directed (DME) FreeStyle Jigar 2 Sensor Kit See Rx Instructions .Route Qty: 1 0RF Rx Instructions: As directed (DME) FreeStyle Jigar 2 Ensign Misc See Rx Instructions .Route Qty: 1 0RF Rx Instructions: As directed amitriptyline 25 mg tablet 25 mg PO DAILY magnesium oxide 400 mg magnesium tablet 400 mg PO DAILY Qty: 90 1RF Ajovy Autoinjector 225 mg/1.5 mL auto-injector 225 mg subcut QMONTH Nurtec ODT 75 mg tablet,disintegrating 75 mg PO Q48HR Held furosemide [Lasix] 40 mg tablet 40 mg PO DAILY Hold Instructions: hold Discontinued pregabalin 200 mg capsule 200 mg PO TID 90 Days Qty: 270 1RF hydrocodone-acetaminophen 5-325 mg tablet 1 tab PO Q4-6H PRN (Reason: pain) 2 Days Qty: 6 0RF doxycycline hyclate 100 mg capsule 100 mg PO BID Patient Comments: for 3 weeks. Exam Physical Exam Vital Signs: Temp Pulse Resp BP Pulse Ox O2 Del Method 97.6 F 62 18 114/70 99 Room Air 08/13/24 08:21 08/13/24 11:51 08/13/24 11:51 08/13/24 11:38 08/13/24 11:38 08/13/24 11:38 Narrative: Const General: cooperative HEENT Normal oropharyngeal mucosa without any ulcers or exudates Eyes: Conjunctiva normal Pulmonary Auscultation: clear to auscultation , no crackles, no wheezes Cardiovascular Rate: normal rate Rhythm: regular rhythm Heart Sounds: S1 normal, S2 normal and no murmurs GI Inspection: non-distended Palpation: soft, not firm and nontender. No rigidity or rebound. Deferred Neuro General: alert, awake and oriented x3. No obvious new focal deficit Musculoskeletal: normal range of motion Extrem General: no cyanosis, R BKA Psych Appearance: appropriate affect. Grossly normal Diagnostic Studies Completed and Pending Studies Pending studies at discharge: 08/11/24 07:17 Stool Occult Blood (Guaiac) Routine Labs on day of discharge: 08/13/24 11:18: POC Glucose 150 08/13/24 06:25: POC Glucose 173 08/13/24 05:24: Corrected WBC 8.0, RBC 4.42, Hgb 9.5 L, Hct 30.0 L, MCV 67.8 L, MCH 21.5 L, MCHC 31.7 L, RDW 19.9 H, Plt Count 153, MPV 10.1, PHA Creatinine Clear 54.91, Sodium 139, Potassium 4.2, Chloride 111 H, Carbon Dioxide 21.5, Anion Gap 10.7, BUN 13, Creatinine 1.59 H, Est GFR (CKD-EPI) 49.698, Glucose 140 H, Calcium 7.5 L, Total Bilirubin 0.3, AST 12 L, ALT 9, Alkaline Phosphatase 93, Total Protein 5.8 L, Albumin 3.4 L, Globulin 2.4, Albumin/Globulin Ratio 1.4 08/12/24 21:03: POC Glucose 168 08/12/24 16:15: POC Glucose 162 Documented By: Kevon Viera MD 08/13/24 14 35 Signed By: <Electronically signed by Kevon Viera MD> 08/13/[address] [place] [address] Work Phone: [place] [address] Discharge Summary Signed Patient: Myra Pickard SR MR#: [id number] : 1965 Acct:[id number] Age/Sex: 59 / M Adm Date: 5 Loc: Room: [address] [place] [address]: Abdullahi Canchola DO Copies to: DO Abdullahi Guzman, ~ Providers Date of Discharge: 10/11/24 Discharging Provider: Abdullahi Canchola Primary Care Provider: Teresa Lynch Consults: 10/10/24 18:25 Consult to Cardiology Routine Comment: Consulting Provider: [facility], [facility] Reason For Exam: chest pain Has Provider Been Notified: Yes Date of Notification: 10/10/24 Time of Notification: 20:37 Discharge Diagnosis Final Diagnosis Final Discharge Diagnosis: 1. Chest pain rule out ACS 2. CAD status post angioplasty 3. Hypertension 4. Peripheral arterial disease 5. COPD 6. Hypertension 7. Type 2 diabetes mellitus 8. Acute kidney injury on chronic kidney disease stage IIIa 9. Benign prostatic hypertrophy 10. Diabetic neuropathy 11. History of anemia of chronic renal disease 12. Tobacco abuse Summary Hospital Course Hospital course: This patient is a 59-year-old male who presented to the emergency department with a chief complaintof sharp stabbing chest pain starting the night prior. He ER arrival 10/10/2024 he was noted to exhibit negative cardiac troponins and unremarkable EKG. Given his vasculopathic history including prior a ngioplastiesof coronary arteries he was brought in under observation for ongoing chest discomfort. This was not relieved with nitroglycerin and was medicated alternatively with low-dose IV Dilaudid as an inpatient. His cardiac troponins were negative x 4. Echocardiogram showed no severe wall motionabnormalities and a preserved ejection fraction 50 to 55%, diastolic dysfunction. Cardiology was consulted and evaluated patient 10/11. No further interventions were warranted. Continue aggressive management of modifiable risk factors including continuing his dual antiplatelet therapy and high intensity statin. Nicotine cessation was discussed and patient is agreeable to nicotine patch which was prescribed 21 mg daily. Discussed with the patient that nicotine is by nature avasoconstricting medication and can be causing vasospasms including that of the coronary arteries. Additionally he can discuss pharmaceutical therapy as part of his nicotine cessation goals with his PCP including medicationsuch as Varenicline. Physical Examination: GENERAL APPEARANCE: Alert, up in bed AAOx3 CARDIAC: Normal S1 and S2. No S3, S4 or murmurs. LUNGS: Clear to auscultation bilaterally. no wheeze/rhonchi/rales ABDOMEN: Positive bowel sounds. Soft, nontender. No guarding or signs of an acute abdomen MUSCULOSKELETAL: Right BKA noted EXTREMITIES: No clubbing, cyanosis or edema NEUROLOGICAL: No focal deficits SKIN: Skin normal color, texture and turgor with no lesions or eruptions. PSYCHIATRIC: Appropriate mood and affect 35 minutes were spent coordinating the discharge of this patient Time Spent with Patient Time spent providing/coordinating discharge services (# min): 35 Discharge Plan Discharge Plan Patient Disposition: Home Activity: No Activity Restriction Diet: Regular Instructions: Know your Meds Prescriptions: New nicotine 21 mg/24 hr Patch 24 Hour 21 mg transdermal DAILY 28 Days Qty: 28 0RF Continued (DME) pen needle, diabetic [Comfort EZ Pen Chadron] 32 gauge x 5/32 needle See Rx Instructions .Route Qty: 100 5RF Rx Instructions: As directed hydroxyzine HCl 25 mg tablet 25 mg PO QHS Qty: 90 1RF Trulicity 0.75 mg/0.5 mL pen injector 0.75 mg subcut QWEEK Qty: 2 3RF Jardiance 10 mg tablet 10 mg PO DAILY Qty: 90 3RF Januvia 100 mg tablet 100 mg PO DAILY Qty: 90 3RF atorvastatin 80 mg tablet 80 mg PO DAILY Qty: 90 1RF glimepiride 2 mg tablet 2 mg PO BID Qty: 180 1RF magnesium oxide 400 mg magnesium tablet 400 mg PO DAILY Qty: 90 1RF clonazepam [Klonopin] 0.5 mg tablet 0.5 mg PO .every morning 30 Days Qty: 30 1RF clopidogrel 75 mg tablet 75 mg PO DAILY Qty: 90 1RF metformin 1,000 mg tablet 1,000 mg PO BID Qty: 180 1RF albuterol sulfate [ProAir HFA] 90 mcg/actuation Hfa Aerosol Inhaler 2 puff INHALATION Q6HR PRN (Reason: Shortness Of Breath) tiotropium bromide [Spiriva with HandiHaler] 18 mcg capsule, w/inhalation device 1 cap inhalation DAILY Rx Instructions: puncture 1 cap using device; one dose = 2 inhalations isosorbide mononitrate 30 mg tablet extended release 24 hr 30 mg PO DAILY tizanidine 4 mg tablet 4 mg PO QHS furosemide [Lasix] 40 mg tablet 40 mg PO DAILY ropinirole 0.5 mg tablet 0.5 mg PO TID metoprolol tartrate 25 mg Tablet 50 mg PO BID Rx Instructions: Hold for SBP < 125 or HR < 70 omeprazole 40 mg capsule,delayed release(DR/EC) 40 mg PO DAILY pregabalin [Lyrica] 75 mg capsule 225 mg PO TID nitroglycerin [Nitrostat] 0.4 mg tablet, sublingual 0.4 mg sublingual Q5-15M PRN (Reason: chest pain) Rx Instructions: do not exceed 3 doses per episode tamsulosin [Flomax] 0.4 mg capsule 0.4 mg PO BID budesonide-formoterol 160-4.5 mcg/actuation HFA aerosol inhaler 2 puff inhalation BID aspirin 81 mg tablet,delayed release (DR/EC) 81 mg PO DAILY sildenafil 100 mg tablet 100 mg PO DAILY PRN (Reason: sexual activity) Qty: 30 0RF Rx Instructions: administer 30 minutes to 4 hours before activity (DME) insulin syringe,safety needle 1 mL 30 gauge x 1/2 syringe See Rx Instructions .Route Qty: 100 5RF Rx Instructions: As directed amitriptyline 25 mg tablet 25 mg PO DAILY Qty: 90 1RF (DME) FreeStyle Jigar 2 Sensor Kit See Rx Instructions .Route Qty: 1 0RF Rx Instructions: As directed (DME) FreeStyle Jigar 2 Ensign Misc See Rx Instructions .Route Qty: 1 0RF Rx Instructions: As directed Discontinued valsartan-hydrochlorothiazide [Diovan HCT] 160-12.5 mg tablet 1 tab PO DAILY Follow Up: [facility] [Outside] (Once Insurance approves outpatient Stress Test we will call you with date/time/instructions.) Bernard De La Cruz MD [Active Staff] - (we will call with appointment when Stress test is complete) Teresa Lynch DO [Primary Care Provider] - 11/05/24 1:15 pm (Follow-up with your Primary Care Provider, call office to reschedule if needed. Recommend follow-up within 3-5 days of discharge if the office is able to see you sooner. ) Exam Physical Exam Vital Signs: Temp Pulse Resp BP Pulse Ox O2 Del Method 98.3 F 66 20 117/68 96 Room Air 10/11/24 08:00 10/11/24 08:51 10/11/24 08:51 10/11/24 08:00 10/11/24 08:00 10/11/24 08:00 Diagnostic Studies Completed and Pending Studies Pending studies at discharge: 10/12/24 05:00 BMP [Basic Metabolic Panel] [CHEM] IN AM Magnesium [CHEM] IN AM 10/13/24 05:00 BMP [Basic Metabolic Panel] [CHEM] IN AM Magnesium [CHEM] IN AM Labs on day of discharge: 10/11/24 11:15: POC Glucose 194, POC Glucose Comment Glu2: cleaned meter 10/11/24 07:56: POC Glucose 229, POC Glucose Comment Glu2: cleaned meter 10/11/24 04:45: Corrected WBC 7.9, Uncorrected WBC Count 7.9, RBC 5.09, Hgb 13.1, Hct 38.9, MCV 76.5 L, MCH 25.7 L, MCHC 33.6, RDW 23.3 H, Plt Count 176, MPV 9.5, Neut % (Auto) 58.3, Lymph % (Auto) 25.5, O'Brien % (Auto) 10.9, Eos % (Auto) 4.0, Baso % (Auto) 1.3, Nucleat RBC Rel Count 0.1, Neut # (Auto) 4.6, Lymph # (Auto) 2.0, O'Brien # (Auto) 0.9 H, Eos # (Auto) 0.3, Baso # (Auto) 0.1, Platelet Estimate Normal, Large Platelets Slight, Plt Morphology Comment N/A, RBC Morphology N/A, Polychromasia Slight, Poikilocytosis Slight, Anisocytosis Marked, Microcytosis Moderate, Ovalocytes Slight, PHA Creatinine Clear 35.93, Sodium 136, Potassium 4.2, Chloride 99, Carbon Dioxide 25.5, Anion Gap 15.7 H, BUN 39 H, Creatinine 2.43 H, Est GFR (CKD-EPI) 29.874, Glucose 221 H, Calcium 8.9, Magnesium 1.8 L, Iron 37 L, TIBC 407, Iron Saturation 9.1 L, Transferrin 291, Ferritin 8.2 L, Total Creatine Kinase 91, Troponin I High Sens 5 10/10/24 23:32: Total Creatine Kinase 101, Troponin I High Sens 6 10/10/24 21:06: POC Glucose 204 10/10/24 21:01: Troponin I High Sens 6 10/10/24 15:42: Corrected WBC 8.7, Uncorrected WBC Count 8.7, RBC 5.62 H, Hgb 14.4, Hct 42.4, MCV 75.5 L, MCH 25.6 L, MCHC 33.9, RDW 23.4 H, Plt Count 203, MPV 9.8, Neut % (Auto) 61.8, Lymph % (Auto)23.4, O'Brien % (Auto) 9.5, Eos % (Auto) 4.0, Baso % (Auto) 1.3, Nucleat RBC Rel Count 0.2, Neut # (Auto) 5.3, Lymph # (Auto) 2.0, O'Brien # (Auto) 0.8, Eos # (Auto) 0.3, Baso # (Auto) 0.1, Monocyte Dist Width 16.66, Platelet Estimate Normal, Plt Morphology Comment Normal, RBC Morphology N/A, Polychromasia Slight, Poikilocytosis Slight, Anisocytosis Marked, Microcytosis Marked, PT 11.4, INR 1.0, PHA Creatinine Clear 34.78, Sodium 135 L, Potassium 4.1, Chloride 98, Carbon Dioxide 25.6, Anion Gap 15.5 H, BUN 41 H, Creatinine 2.51 H, Est GFR (CKD-EPI) 28.735, Glucose 278 H, Calcium 9.7, Total CreatineKinase 126, Troponin I High Sens 6, B-Natriuretic Peptide 17.0 Documented By: Abdullahi Canchola DO 10/11/24 13 40 Signed By: 10/11/24 1358 [facility] Note Date/Time October 11, 2024 1:58pm [facility] [address] [place] [address] Discharge Summary Signed Patient: Myra Pickard SR MR#: [id number] : 1965 Acct:[id number] Age/Sex: 59 / M Adm Date: 5 Loc: Room: [address] [place] [address]: Abdullahi Canchola DO Copies to: DO Abdullahi Guzman DO~ Providers Date of Discharge: 10/11/24 Discharging Provider: Abdullahi Canchola Primary Care Provider: Teresa Lynch Consults: 10/10/24 18:25 Consult to Cardiology Routine Comment: Consulting Provider: [facility] Heart, [facility] Reason For Exam: chest pain Has Provider Been Notified: Yes Date of Notification: 10/10/24 Time of Notification: 20:37 Discharge Diagnosis Final Diagnosis Final Discharge Diagnosis: 1. Chest pain rule out ACS 2. CAD status post angioplasty 3. Hypertension 4. Peripheral arterial disease 5. COPD 6. Hypertension 7. Type 2 diabetes mellitus 8. Acute kidney injury on chronic kidney disease stage IIIa 9. Benign prostatic hypertrophy 10. Diabetic neuropathy 11. History of anemia of chronic renal disease 12. Tobacco abuse Summary Hospital Course Hospital course: This patient is a 59-year-old male who presented to the emergency department with a chief complaint of sharp stabbing chest pain starting the night prior. He ER arrival 10/10/2024 he was noted to exhibit negative cardiac troponins and unremarkable EKG. Given his vasculopathic history including prior angioplastiesof coronary arteries he was brought in under observation for ongoing chest discomfort. This was not relieved with nitroglycerin and was medicated alternatively with low-dose IV Dilaudid as an inpatient. His cardiac troponins were negative x 4. Echocardiogram showed no severe wall motion abnormalities and a preserved ejection fraction 50 to 55%, diastolic dysfunction. Cardiology was consulted and evaluated patient 10/11. No further interventions were warranted. Continue aggressive management of modifiable risk factors including continuing his dual antiplatelet therapy and high intensity statin. Nicotine cessation was discussed and patient is agreeable to nicotine patch which was prescribed 21 mg daily. Discussed with the patient that nicotine is by nature avasoconstricting medication and can be causing vasospasms including that of the coronary arteries. Additionally he can discuss pharmaceutical therapy as part of his nicotine cessation goals with his PCP including medication such as Varenicline. Physical Examination: GENERAL APPEARANCE: Alert, up in bed AAOx3 CARDIAC: Normal S1 and S2. No S3, S4 or murmurs. LUNGS: Clear to auscultation bilaterally. no wheeze/rhonchi/rales ABDOMEN: Positive bowel sounds. Soft, nontender. No guarding or signs of an acute abdomen MUSCULOSKELETAL: Right BKA noted EXTREMITIES: No clubbing, cyanosis or edema NEUROLOGICAL: No focal deficits SKIN: Skin normal color, texture and turgor with no lesions or eruptions. PSYCHIATRIC: Appropriate mood and affect 35 minutes were spent coordinating the discharge of this patient Time Spent with Patient Time spent providing/coordinating discharge services (# min): 35 Discharge Plan Discharge Plan Patient Disposition: Home Activity: No Activity Restriction Diet: Regular Instructions: Know your Meds Prescriptions: New nicotine 21 mg/24 hr Patch 24 Hour 21 mg transdermal DAILY 28 Days Qty: 28 0RF Continued (DME) pen needle, diabetic [Comfort EZ Pen Chadron] 32 gauge x / needle See Rx Instructions .Route Qty: 100 5RF Rx Instructions: As directed hydroxyzine HCl 25 mg tablet 25 mg PO QHS Qty: 90 1RF Trulicity 0.75 mg/0.5 mL pen injector 0.75 mg subcut QWEEK Qty: 2 3RF Jardiance 10 mg tablet 10 mg PO DAILY Qty: 90 3RF Januvia 100 mg tablet 100 mg PO DAILY Qty: 90 3RF atorvastatin 80 mg tablet 80 mg PO DAILY Qty: 90 1RF glimepiride 2 mg tablet 2 mg PO BID Qty: 180 1RF magnesium oxide 400 mg magnesium tablet 400 mg PO DAILY Qty: 90 1RF clonazepam [Klonopin] 0.5 mg tablet 0.5 mg PO .every morning 30 Days Qty: 30 1RF clopidogrel 75 mg tablet 75 mg PO DAILY Qty: 90 1RF metformin 1,000 mg tablet 1,000 mg PO BID Qty: 180 1RF albuterol sulfate [ProAir HFA] 90 mcg/actuation Hfa Aerosol Inhaler 2 puff INHALATION Q6HR PRN (Reason: Shortness Of Breath) tiotropium bromide [Spiriva with HandiHaler] 18 mcg capsule, w/inhalation device 1 cap inhalation DAILY Rx Instructions: puncture 1 cap using device; one dose = 2 inhalations isosorbide mononitrate 30 mg tablet extended release 24 hr 30 mg PO DAILY tizanidine 4 mg tablet 4 mg PO QHS furosemide [Lasix] 40 mg tablet 40 mg PO DAILY ropinirole 0.5 mg tablet 0.5 mg PO TID metoprolol tartrate 25 mg Tablet 50 mg PO BID Rx Instructions: Hold for SBP < 125 or HR < 70 omeprazole 40 mg capsule,delayed release(DR/EC) 40 mg PO DAILY pregabalin [Lyrica] 75 mg capsule 225 mg PO TID nitroglycerin [Nitrostat] 0.4 mg tablet, sublingual 0.4 mg sublingual Q5-15M PRN (Reason: chest pain) Rx Instructions: do not exceed 3 doses per episode tamsulosin [Flomax] 0.4 mg capsule 0.4 mg PO BID budesonide-formoterol 160-4.5 mcg/actuation HFA aerosol inhaler 2 puff inhalation BID aspirin 81 mg tablet,delayed release (DR/EC) 81 mg PO DAILY sildenafil 100 mg tablet 100 mg PO DAILY PRN (Reason: sexual activity) Qty: 30 0RF Rx Instructions: administer 30 minutes to 4 hours before activity (DME) insulin syringe,safety needle 1 mL 30 gauge x 1/2 syringe See Rx Instructions .Route Qty: 100 5RF Rx Instructions: As directed amitriptyline 25 mg tablet 25 mg PO DAILY Qty: 90 1RF (DME) FreeStyle Jigar 2 Sensor Kit See Rx Instructions .Route Qty: 1 0RF Rx Instructions: As directed (DME) FreeStyle Jigar 2 Ensign Misc See Rx Instructions .Route Qty: 1 0RF Rx Instructions: As directed Discontinued valsartan-hydrochlorothiazide [Diovan HCT] 160-12.5 mg tablet 1 tab PO DAILY Follow Up: [facility] [Outside] (Once Insurance approves outpatient Stress Test we will call you with date/time/instructions.) Bernard De La Cruz MD [Active Staff] - (we will call with appointment when Stress test is complete) Teresa Lynch DO [Primary Care Provider] - 11/05/24 1:15 pm (Follow-up with your Primary Care Provider, call office to reschedule if needed. Recommend follow-up within 3-5 days of discharge if the office is able to see you sooner. ) Exam Physical Exam Vital Signs: Temp Pulse Resp BP Pulse Ox O2 Del Method 98.3 F 66 20 117/68 96 Room Air 10/11/24 08:00 10/11/24 08:51 10/11/24 08:51 10/11/24 08:00 10/11/24 08:00 10/11/24 08:00 Diagnostic Studies Completed and Pending Studies Pending studies at discharge: 10/12/24 05:00 BMP [Basic Metabolic Panel] [CHEM] IN AM Magnesium [CHEM] IN AM 10/13/24 05:00 BMP [Basic Metabolic Panel] [CHEM] IN AM Magnesium [CHEM] IN AM Labs on day of discharge: 10/11/24 11:15: POC Glucose 194, POC Glucose Comment Glu2: cleaned meter 10/11/24 07:56: POC Glucose 229, POC Glucose Comment Glu2: cleaned meter 10/11/24 04:45: Corrected WBC 7.9, Uncorrected WBC Count 7.9, RBC 5.09, Hgb 13.1, Hct 38.9, MCV 76.5 L, MCH 25.7 L, MCHC 33.6, RDW 23.3 H, Plt Count 176, MPV 9.5, Neut % (Auto) 58.3, Lymph % (Auto) 25.5, O'Brien % (Auto) 10.9, Eos % (Auto) 4.0, Baso % (Auto) 1.3, Nucleat RBC Rel Count 0.1, Neut # (Auto) 4.6, Lymph # (Auto) 2.0, O'Brien # (Auto) 0.9 H, Eos # (Auto) 0.3, Baso # (Auto) 0.1, Platelet Estimate Normal, Large Platelets Slight, Plt Morphology Comment N/A, RBC Morphology N/A, Polychromasia Slight, Poikilocytosis Slight, Anisocytosis Marked, Microcytosis Moderate, Ovalocytes Slight, PHA Creatinine Clear 35.93, Sodium 136, Potassium 4.2, Chloride 99, Carbon Dioxide 25.5, Anion Gap 15.7 H, BUN 39 H, Creatinine 2.43 H, Est GFR (CKD-EPI) 29.874, Glucose 221 H, Calcium 8.9, Magnesium 1.8 L, Iron 37 L, TIBC 407, Iron Saturation 9.1 L, Transferrin 291, Ferritin 8.2 L, Total Creatine Kinase 91, Troponin I High Sens 5 10/10/24 23:32: Total Creatine Kinase 101, Troponin I High Sens 6 10/10/24 21:06: POC Glucose 204 10/10/24 21:01: Troponin I High Sens 6 10/10/24 15:42: Corrected WBC 8.7, Uncorrected WBC Count 8.7, RBC 5.62 H, Hgb 14.4, Hct 42.4, MCV 75.5 L, MCH 25.6 L, MCHC 33.9, RDW 23.4 H, Plt Count 203, MPV 9.8, Neut % (Auto) 61.8, Lymph % (Auto) 23.4, O'Brien % (Auto) 9.5, Eos % (Auto) 4.0, Baso % (Auto) 1.3, Nucleat RBC Rel Count 0.2, Neut # (Auto) 5.3, Lymph # (Auto) 2.0, O'Brien # (Auto) 0.8, Eos # (Auto) 0.3, Baso # (Auto) 0.1, Monocyte Dist Width 16.66, Platelet Estimate Normal, Plt Morphology Comment Normal, RBC Morphology N/A, Polychromasia Slight, Poikilocytosis Slight, Anisocytosis Marked, Microcytosis Marked, PT 11.4, INR 1.0, PHA Creatinine Clear 34.78, Sodium 135 L, Potassium 4.1, Chloride 98, Carbon Dioxide 25.6, Anion Gap 15.5 H, BUN 41 H, Creatinine 2.51 H, Est GFR (CKD-EPI) 28.735, Glucose 278 H, Calcium 9.7, Total Creatine Kinase 126, Troponin I High Sens 6, B-Natriuretic Peptide 17.0 Documented By: Abdullahi Canchola DO 10/11/24 13 40 Signed By: <Electronically signed by Abdullahi Canchola, DO> 10/11/24 1358 [facility] Work Phone: Evaluation + Plan note Future Appointments Appointment Date:12/21/2022 11:00:00 AM Scheduled Provider: Location:[facility] Appointment Type:URO Nurse Visit Appointment Date:01/30/2023 10:30:00 AM Scheduled Provider:Yeyo ROWE MD Location:[facility] Appointment Type:URO Office Visit [facility] Evaluation + Plan note Future Appointments Appointment Date:01/30/2023 10:15:00 AM Scheduled Provider:Yeyo ROWE MD Location:[facility] Appointment Type:URO Office Visit [facility] Evaluation + Plan note Future Appointments Appointment Date:02/01/2023 10:00:00 AM Scheduled Provider: Location:[facility] Appointment Type:Urology CALL PAT FT Appointment Date:02/08/2023 09:00:00 AM Scheduled Provider: Location:[facility] Appointment Type:Urology FT Appointment Date:02/14/2023 09:15:00 AM Scheduled Provider: Location:[facility] Appointment Type:Urology FT [facility] evaluation + Plan note Future Appointments Appointment Date:02/14/2023 09:15:00 AM Scheduled Provider: Location:[facility] App[facility]ments Appointment Date:03/20/2023 08:45:00 AM Scheduled Provider: Location:[facility] Appointment Type:URO Nurse Visit Appointment Date:04/05/2023 08:00:00 AM Scheduled Provider:Yeyo ROWE MD Location:[facility] App[facility] Future Appointments Appointment Date:05/03/2023 08:45:00 AM Scheduled Provider:Yeyo ROWE MD Location:[facility] Appointment Type:URO Office Visit [facility] Evaluation + Plan note Future Appointments Appointment Date:07/03/2023 10:15:00 AM Scheduled Provider:Yeyo ROWE MD Location:[facility] Appointment Type:URO Office Visit [facility] evaluation + Plan note Future Appointments Appointment Date:10/23/2023 09:30:00 AM Scheduled Provider:Mike Montes MD [facility] App[facility] (FT) [facility] noteNo InformationN[employer] Other Evaluation noteNo assessment information available [facility] Work Phone: evaluation note* Diagnosis History of PTCA Postsurgical percutaneous transluminal coronary angioplasty status Hyperlipidemia, unspecified hyperlipidemia type Encounter for pre-operative cardiovascular clearance Former smoker Personal history of tobacco use, presenting hazards to health documented in this encounter [facility] Work Phone: Evaluation note* Diagnosis Onset Date Resolution Status Anemia acute Atrial fibrillation acute Chronic back pain acute Cigarette nicotine dependenc e with nicotine-induced disorder acute Diabetic nephropathy associa jorge with secondary diabetes mellitus acute GERD (gastroesophageal reflux disease) acute Hyperlipidemia acute Restless legs syndrome acute Syncope acute CAD (coronary artery disease) chronic Chronic kidney disease chron ic Diabetes chronic Hypertension chronic [facility] Work Phone: Evaluation note* Diagnosis Onset Date [...] chronic Altered mental status acute Hypothermia acute [facility] Work Phone: Evaluation note* Diagnosis Onset [...] acute Restless legs syndrome acute Syncope acute [facility] Work Phone: Evaluation note* Diagnosis Onset [...] imaging acute GERD (gastroesophageal reflux disease) acute [facility] Work Phone: Evaluation note* Diagnosis Onset Date [...] GERD (gastroesophageal reflux disease) acute Diabetes acute [facility] Work Phone: Evaluation note* Diagnosis Shortness of breath documented in this encounter [facility] Work Phone: Evaluation note* Diagnosis Abscess of right foot- Primary Cellulitis and abscess of foot, except toes Status post partial amputation of right foot ([facility]) Type 2 diabetes mellitus with stage 4 chronic kidney disease, without long-term current use of insulin ([facility]) Atherosclerosis of [place] coronary artery of [place] heart without angina pectoris Bacterial sepsis ([facility]) Bacteremia Other acute osteomyelitis of right foot ([facility]) Chronic obstructive pulmonary disease, unspecified COPD type ([facility]) Cigarette smoker Tobacco use disorder BPH with obstruction/lower urinary tract symptoms Gastroesophageal reflux disease, unspecified whether esophagitis present Restless leg syndrome Restless legs syndrome (RLS) Hyperlipidemia, unspecified hyperlipidemia type Carpal tunnel syndrome, unspecified laterality Heart failure, unspecified HF chronicity, unspecified heart failure type ([facility]) [facility] Diagnosis Diarrhea, unspecified type- Primary Other acute osteomyelitis of right foot ([facility]) Status post partial amputation of right foot ([facility]) Chronic obstructive pulmonary disease, unspecified COPD type ([facility]) Abscess of right foot Cellulitis and abscess of foot, except toes Type 2 diabetes mellitus with stage 4 chronic kidney disease, without long-term current use of insulin ([facility]) [facility] Diagnosis Status post partial amputation of right foot ([facility])- Primary Pressure ulcer of right ankle, stage 3 ([facility]) Other abnormalities of gait and mobility Delayed surgical wound healing of foot amputation stump ([facility]) [facility] Diagnosis 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 ([facility])- Primary Poor circulation Unspecified circulatory system disorder Heavy tobacco smoker >10 cigarettes per day [facility] Diagnosis Status post partial amputation of right foot ([facility])- Primary 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 ([facility]) Type 2 diabetes mellitus with stage 4 chronic kidney disease, without long-term current use of insulin ([facility]) documented [facility] Diagnosis Peripheral arterial disease ([facility])- Primary Unspecified peripheral vascular disease Delayed surgical wound healing of foot amputation stump ([facility]) Other abnormalities of gait and mobility Status post partial amputation of right foot ([facility]) Pressure ulcer of right ankle, stage 3 ([facility]) Type 2 diabetes mellitus with stage 4 chronic kidney disease, without long-term current use of insulin ([facility]) documented [facility] Diagnosis 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 ([facility] Primary Status post partial amputation of right foot ([facility])- Primary Osteomyelitis of right foot, unspecified type ([facility]) Muscle weakness (generalized) Other abnormalities of gait and mobility Chronic obstructive pulmonary disease, unspecified COPD type ([facility]) Peripheral arterial disease ([facility]) Unspecified peripheral vascular disease 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 ([facility]) documented [facility] Diagnosis Status post partial amputation of right foot ([facility])- Primary Other abnormalities of gait and mobility Leg edema Edema Primary hypertension Unspecified essential hypertension Hypotension due to drugs Other iatrogenic hypotension 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 ([facility]) Diabetic polyneuropathy associated with type 2 diabetes mellitus ([facility]) [facility] Diagnosis 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 ([facility])- Primary Cigarette smoker motivated to quit documented [facility] Diagnosis 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 ([facility])- Primary 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 ([facility]) Delayed surgical wound healing of foot amputation stump ([facility]) Other abnormalities of gait and mobility documented [facility] Diagnosis 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 ([facility] Primary [facility]* Diagnosis 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 ([facility])- Primary Cigarette smoker Tobacco use disorder documented [facility]* Diagnosis Diabetic polyneuropathy associated with type 2 diabetes mellitus ([facility])- Primary Disorientation Other general symptoms Other abnormalities of gait and mobility Status post partial amputation of right foot ([facility]) Atherosclerosis of [place] coronary artery of [place] heart without angina pectoris Atrial fibrillation ([facility]) Primary hypertension Unspecified essential hypertension [facility]* Diagnosis Diabetic polyneuropathy associated with type 2 diabetes mellitus ([facility])- Primary Encounter for orthopedic aftercare following surgical amputation Other abnormalities of gait and mobility Restless leg syndrome Restless legs syndrome (RLS) documented [facility]* Diagnosis 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 ([facility])- Primary Poor circulation Unspecified circulatory system disorder Heavy tobacco smoker >10 cigarettes per day 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 ([facility])- Primary Cigarette smoker motivated to quit 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 ([facility])- Primary Cigarette smoker Tobacco use disorder History of right below knee amputation ([facility])- Primary [facility]* Diagnosis Encounter for orthopedic aftercare following surgical amputation- Primary Cigarette smoker Tobacco use disorder Diabetic polyneuropathy associated with type 2 diabetes mellitus [facility] [facility] Other abnormalities of gait and mobility Muscle spasm Spasm of muscle documented in this [facility] Diagnosis PAD (peripheral artery disease) ([facility])- Primary Unspecified peripheral vascular disease documented in this [facility]* Diagnosis Encounter for orthopedic aftercare following surgical amputation- Primary Other abnormalities of gait and mobility BPH with obstruction/lower urinary tract symptoms Diabetic polyneuropathy associated with type 2 diabetes mellitus ([facility]) Atherosclerosis of [place] coronary artery of [place] heart without angina pectoris Heart failure, unspecified HF chronicity, unspecified heart failure type ([facility]) Primary hypertension Unspecified essential hypertension Peripheral arterial disease ([facility]) Unspecified peripheral vascular disease Chronic obstructive pulmonary disease, unspecified COPD type ([facility]) Gastroesophageal reflux disease, unspecified whether esophagitis present Muscle weakness (generalized) documented in this encounter [facility]* Diagnosis Onset Date Resolution Status Admit Date Acute kidney injury superimp osed on CKD acute August 11, 2024 5:39am Diabetes acute August 11 5:39am Hypocalcemia acute August 11 025 5:39am Left sided numbness acute August 11, 2024 5:39am Paresthesias acute August 11 5:39am Hypertension chronic August 11 5:39am [facility] Work Phone: History and physical note Author Mike Burleson [facility] Note Date/Time April 23, 2024 1:50pm [facility] [address] [place] [address] Gastroenterology H&P Signed Patient: Myra Pickard SR MR#: [id number] : 1965 Acct:[id number] Age/Sex: 58 / M Adm Date: 4 Loc: Room: Type: [facility] Attending Dr: Mike Burleson MD Copies to: [...] MD Documented By: Mike Burleson MD 04/23/24 1345 Signed By: <Electronically signed by Mike Burleson MD> 04/23/24 1351 [facility] Work Phone: History and physical note Author Marge Andino [facility] Note Date/Time August 11, 2024 7:24 am [facility] [address] [place] [address] Hospitalist H&P Signed Patient: Myra Pickard SR MR#: [id number] : 1965 Acct:[id number] Age/Sex: 59 / M Adm Date: 5 Loc: 3T Room: [address] [place] [address] Type: ADM IN Attending Dr: Kevon Viera MD Copies to: DO Kevon Guzman MD Ruta Semaskiene, MD~ HPI DATE OF EXAMINATION: 08/11/24 HISTORY OF PRESENT ILLNESS: 59 years old male woke up yesterday with numbness and tingling all over his body. He denies any headache, he denies any vision problems, he denies any nausea, he also complained of dizziness/lightheadedness like sensation. But he denies any falls or syncopal episode. He denies any abdominal pain. No nausea no vomiting no diarrhea. He denies any signs of dehydration or any new medications. He has good appetite. He denies any dysuria urgency frequency. He denies any difficulties with urination. He denies any focal weakness in upper or lower extremity, he does have below-knee amputation of the right lower extremity. 10 systems are reviewed and are negative apart as mentioned H&P General -patient is awake alert oriented ?3, does not appear to be in distress HEENT -normal oropharyngeal mucosa without any ulcers or exudates Cardiovascular -S1 plus S2, with regular rate, without any murmurs, gallops, rubs Pulmonary -clear to auscultation bilaterally Gastrointestinal -abdomen is soft, nondistended, nontender, bowel sounds positive, no rigidity, no rebound Musculoskeletal -no difficult joint swelling Neurological -no focal Skin -no significant ulcers, no rash noted Extremities - no edema in bilateral lower extremities noted Psychiatry - appropriate affect Laboratory work up, imaging studies reviewed EKG personally reviewed by me side this rhythm with PACs, without ischemic changes, with QTc 485 Previous records in the computer system reviewed CT scan of the head/CT of the head and neck without acute findings -official report pending [facility] Medical History Chronic obstructive pulmonary disease, unspecified Hyperbilirubinemia Hypothermia Vitamin D deficiency 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 Restless legs syndrome Peripheral vascular disease Peripheral edema Lung nodule Insulin long-term use Insomnia Hypotestosteronemia Hypertensive chronic kidney disease with stage 1 through stage 4 chronic kidney disease, or unspecified chronic kidney disease Gout GERD (gastroesophageal reflux disease) Erectile dysfunction Contracture of hand Claudication of both lower extremities Cigarette nicotine dependence with nicotine-induced disorder Bladder mass Atrial fibrillation Atherosclerotic heart disease of [place] coronary artery with unspecified angina pectoris Anxiety Hx of exercise stress test Family history of premature CAD Reports mother had quadruple bypass at age of 45 Myocardial infarction mild Fibromyalgia Chronic back pain Sleep apnea Neuropathy Cataract Peripheral artery disease Hyperlipidemia Diabetes Hypertension Surgical History History of below-knee amputation of right lower extremity 02/2024 [facility] by Dr. Simon Hernández Vascular History of artificial lens replacement Hx of [...] Tobacco Type: cigarettes Substance Use Type: None Substance Abuse Comment: etoh occasionally Social History Comments: mobile home Meds Medications and Allergies Allergies Penicillins Allergy (Unknown, Verified 08/11/24 04:06) Anaphylaxis latex Allergy (Verified 08/11/24 04:06) Unknown Reaction Home Medications albuterol sulfate 90 mcg/actuation aerosol inhaler (ProAir HFA) 2 puff inhalation Q6HR PRN Shortness Of Breath 06/28/19 [History Confirmed 08/11/24] nitroglycerin 0.4 mg sublingual tablet (Nitrostat) 0.4 mg sublingual Q5-15M PRN chest pain 07/12/23 [History Confirmed 08/11/24] flash glucose scanning reader (FreeStyle Jigar 2 Ensign) #1 ea 12/28/23 [Rx Confirmed 08/11/24] flash glucose sensor (FreeStyle Jigar 2 Sensor kit) #1 ea 12/28/23 [Rx Confirmed 08/11/24] tiotropium bromide 18 mcg capsule with inhalation device (Spiriva with HandiHaler) 1 cap inhalation DAILY 03/03/24 [History Confirmed 08/11/24] clopidogrel 75 mg tablet 75 mg PO DAILY 03/08/24 [History Confirmed 08/11/24] tamsulosin 0.4 mg capsule (Flomax) 0.4 mg PO BID 03/08/24 [History Confirmed 08/11/24] insulin syringe,safety needle 1 mL 30 gauge x 1/2 #100 ea 03/29/24 [Rx Confirmed 08/11/24] aspirin 81 mg tablet,delayed release 81 mg PO DAILY 04/05/24 [History Confirmed 08/11/24] budesonide-formoterol HFA 160 mcg-4.5 mcg/actuation aerosol inhaler 2 puff inhalation BID 04/05/24 [History Confirmed 08/11/24] metformin 1,000 mg tablet 1,000 mg PO BID 04/05/24 [History Confirmed 08/11/24] sildenafil 100 mg tablet 100 mg PO DAILY PRN sexual activity #30 tabs 04/05/24 [Rx Confirmed 08/11/24] pen needle, diabetic 32 gauge x 5/32 (Comfort EZ Pen Chadron) #100 ea 04/15/24 [Rx Confirmed 08/11/24] hydroxyzine HCl 25 mg tablet 25 mg PO QHS #90 tabs 05/06/24 [Rx Confirmed 05/07/24] amitriptyline 25 mg tablet 25 mg PO DAILY 05/07/24 [History Confirmed 08/11/24] fremanezumab-vfrm 225 mg/1.5 mL subcutaneous auto-injector (Ajovy) 225 mg subcutQMONTH 05/07/24 [History Confirmed 08/11/24] magnesium oxide 400 mg PO DAILY #90 tabs 05/07/24 [Rx Confirmed 05/07/24] rimegepant 75 mg disintegrating tablet (Nurtec ODT) 75 mg PO Q48HR 05/07/24 [History Confirmed 08/11/24] dulaglutide 0.75 mg/0.5 mL subcutaneous pen injector (Trulicity) 0.75 mg (0.5 mL) subcut QWEEK #2 mL 06/25/24 [Rx Confirmed 08/11/24] empagliflozin 10 mg tablet (Jardiance) 10 mg PO DAILY #90 tabs 06/25/24 [Rx Confirmed 08/11/24] omeprazole 40 mg capsule,delayed release 40 mg PO DAILY #90 caps 06/25/24 [Rx Confirmed 08/11/24] sitagliptin phosphate 100 mg tablet (Januvia) 100 mg PO DAILY #90 tabs 06/25/24 [Rx Confirmed 08/11/24] atorvastatin 80 mg tablet 80 mg PO DAILY #90 tabs 06/27/24 [Rx Confirmed 08/11/24] clonazepam 0.5 mg tablet (Klonopin) 0.5 mg PO .every morning 30 days #30 tabs 06/27/24 [Rx] glimepiride 2 mg tablet 2 mg PO BID #180 tabs 06/27/24 [Rx Confirmed 08/11/24] pregabalin 200 mg capsule 200 mg PO TID 90 days #270 caps 06/27/24 [Rx Confirmed 08/11/24] hydrocodone 5 mg-acetaminophen 325 mg tablet 1 tab PO Q4-6H PRN pain 2 days #6 tabs 07/16/24 [Rx] doxycycline hyclate 100 mg capsule 100 mg PO BID 08/11/24 [History Confirmed 08/11/24] furosemide 40 mg tablet (Lasix) 40 mg PO DAILY 08/11/24 [History Confirmed 08/11/24] isosorbide mononitrate 30 mg tablet,extended release 24 hr 30 mg PO DAILY 08/11/24 [History Confirmed 08/11/24] metoprolol tartrate 25 mg tablet 100 mg PO BID 08/11/24 [History Confirmed 08/11/24] ropinirole 0.5 mg tablet 1 mg PO TID 08/11/24 [History Confirmed 08/11/24] tizanidine 4 mg tablet 4 mg PO QHS 08/11/24 [History Confirmed 08/11/24] valsartan 160 mg-hydrochlorothiazide 12.5 mg tablet (Diovan HCT) 1 tab PO DAILY 08/11/24 [History Confirmed 08/11/24] Exam Physical Exam Vital Signs: Temp Pulse Resp BP Pulse Ox O2 Del Method 36.6 C 92 16 113/61 99 Room Air 08/11/24 06:29 08/11/24 06:29 08/11/24 06:29 08/11/24 06:29 08/11/24 06:29 08/11/24 06:52 Results - Hospitalist H&P Lab Results Labs: Laboratory Last Values Corrected WBC 10.7 X10E3/uL (4.1-10.5) H 08/11/24 04:15 Uncorrected WBC Count 10.7 x10E3/uL (4.1-10.5) H 08/11/24 04:15 RBC 5.32 x10E6/uL (3.90-5.60) 08/11/24 04:15 Hgb 11.6 g/dL (13.0-17.0) L 08/11/24 04:15 Hct 35.8 % (38.8-50.0) L 08/11/24 04:15 MCV 67.4 fl (83.5-101) L 08/11/24 04:15 MCH 21.8 pg (27.5-35.2) L 08/11/24 04:15 MCHC 32.3 g/dL (32.5-35.6) L 08/11/24 04:15 RDW 20.1 % (12.0-14.8) H 08/11/24 04:15 Plt Count 209 x10E3/uL (150-450) 08/11/24 04:15 MPV 9.1 fl (6.6-10.1) 08/11/24 04:15 Neut % (Auto) N/A 08/11/24 04:15 Lymph % (Auto) N/A 08/11/24 04:15 O'Brien % (Auto) N/A 08/11/24 04:15 Eos % (Auto) N/A 08/11/24 04:15 Baso % (Auto) N/A 08/11/24 04:15 Nucleat RBC Rel Count N/A 08/11/24 04:15 Neut # (Auto) N/A 08/11/24 04:15 Lymph # (Auto) N/A 08/11/24 04:15 O'Brien # (Auto) N/A 08/11/24 04:15 Eos # (Auto) N/A 08/11/24 04:15 Baso # (Auto) N/A 08/11/24 04:15 Band Neutrophils % 1 % (0-5) 08/11/24 04:15 Lymphocytes % 30 % (18-42) 08/11/24 04:15 Monocytes % 5 % (2-11) 08/11/24 04:15 Eosinophils % 4 % (1-3) H 08/11/24 04:15 Basophils % 1 % (0-2) 08/11/24 04:15 Segmented Neutrophils 60 % (50-70) 08/11/24 04:15 Monocyte Dist Width 17.90 % (0.00-20.00) 08/11/24 04:15 Platelet Estimate Normal (Normal) 08/11/24 04:15 Plt Morphology Comment Normal (Normal) 08/11/24 04:15 RBC Morphology N/A 08/11/24 04:15 Polychromasia Slight 08/11/24 04:15 Poikilocytosis Slight 08/11/24 04:15 Anisocytosis Marked 08/11/24 04:15 Microcytosis Moderate 08/11/24 04:15 Ovalocytes Slight 08/11/24 04:15 Crenated Cell Slight 08/11/24 04:15 PT 13.8 Seconds (9.0-12.9) H 08/11/24 04:15 INR 1.2 08/11/24 04:15 APTT 30.9 Seconds (25.1-36.5) 08/11/24 04:15 PHA Creatinine Clear 33.32 08/11/24 04:15 Sodium 140 mmol/L (136-145) 08/11/24 04:15 Potassium 3.1 mmol/L (3.5-5.1) L 08/11/24 04:15 Chloride 100 mmol/L (98-107) 08/11/24 04:15 Carbon Dioxide 27.1 mmol/L (21.0-31.0) 08/11/24 04:15 Anion Gap 16.0 mEq/L (6.0-15.0) H 08/11/24 04:15 BUN 26 mg/dL (7-25) H 08/11/24 04:15 Creatinine 2.62 mg/dL (0.70-1.30) H 08/11/24 04:15 Est GFR (CKD-EPI) 27.293 mL/Min 08/11/24 04:15 Glucose 102 mg/dL (70-100) H 08/11/24 04:15 POC Glucose 176 mg/dl 08/11/24 06:33 Calcium 6.1 mg/dL (8.6-10.3) L* 08/11/24 04:15 Phosphorus 4.8 mg/dL (2.5-4.5) H 08/11/24 04:15 Magnesium 0.5 mg/dL (1.9-2.7) L* 08/11/24 04:15 Total Bilirubin 0.4 mg/dl (0.3-1.0) 08/11/24 04:15 AST 12 U/L (13-39) L 08/11/24 04:15 ALT 11 U/L (7-52) 08/11/24 04:15 Alkaline Phosphatase 105 U/L (34-104) H 08/11/24 04:15 Total Creatine Kinase 305 U/L (30-223) H 08/11/24 04:15 Troponin I High Sens 6 ng/L (0-20) 08/11/24 04:15 Total Protein 6.9 gm/dL (6.4-8.9) 08/11/24 04:15 Albumin 4.2 gm/dL (3.5-5.7) 08/11/24 04:15 Globulin 2.7 gm/dL 08/11/24 04:15 Albumin/Globulin Ratio 1.6 08/11/24 04:15 Vitamin B12 129 pg/mL (180-914) L 08/11/24 04:15 25-OH Vitamin D Total 15.0 ng/mL (30-100) L 08/11/24 04:15 Folate 14.0 ng/mL (>5.9) 08/11/24 04:15 TSH 3rd Generation 4.18 uIU/mL (0.45-5.33) 08/11/24 04:15 PTH Intact 38.3 pg/mL (12-88) 08/11/24 04:15 Assessment & Plan Assessment/Plan (1) Acute kidney injury superimposed on CKD: Plan 1. Bilateral paresthesias of the upper and lower extremities without any other focal neurological dysfunction CT scan of the head/CTA of the head and neck done in the emergency room without acute findings, official report pending Suspect due to significant electrolyte abnormalities including severe hypomagnesemia/hypokalemia/hypocalcemia -start replacement Vitamin B12 deficiency could contribute as well, start replacement 2. Acute kidney injury with underlying chronic kidney disease stage III baseline creatinine 1.8, Check bladder scan to rule out obstruction, clinically patient appears to be dry, start IV fluids Strict input and output, avoid any nephrotoxic medications Patient did get a contrast in emergency room 3. Microcytic anemia previously diagnosed with iron deficiency, this time iron studies pending Will need to be evaluated as outpatient If proven start iron supplements 4. Diabetes mellitus type 2 with hemoglobin A1c 7.3 Continue with home therapy, add sliding scale 5. Coronary artery disease status post previous intervention, currently patientdenies any chest pain, troponin negative, EKG nonischemic 6. DVT prophylaxis heparin IP vs OBS Justification Based on differential dx, clinical care plan, and risk of adverse events, if untreated, in my clinical judgement this patient requires an acute care setting as: INPATIENT because of an expectation of an over 2 midnight stay. Estimated length of stay (# of days): 3 Documented By: Marge Andino MD 08/11/24 0717 Signed By: <Electronically signed by Marge Andino MD> 08/11/24 0724 [facility] Work Phone: [place] [address] Hospitalist H&P Signed Patient: Myra Pickard MR#: [id number] : 1965 Acct:[id number] Age/Sex: 59 / M Adm Date: 5 Loc: Room: [address] [place] [address] Type: ADM INOo Attending Dr: Abdullahi Canchola DO Copies to: DO Abdullahi Guzman DO~ HPI DATE OF EXAMINATION: 10/10/24 CHIEF COMPLAINT: Chest pain HISTORY OF PRESENT ILLNESS: This patient is a 59-year-old male presented to the emergency department this afternoon with complaints of sharp chest pain in the midsternal region beginninglast night. He states this came on suddenly when he was sitting and radiates down his left arm. Described as stabbing in nature and similar to that of the chest pain he experienced during previous cardiac events. He reports [facility]. He hasstent information cards that are indicative of devices in the RCA and PDA. States his previous heart attacks affected the back of his heart. Denies shortness of breath, nausea or diaphoresis presently. This chest pain persisteddespitenitroglycerin taken prior to coming into the ER. His vitals on presentation reveal low normal blood pressure 100/58 with a heart rate of 87 bpm, 100% oxygen saturation on room air with with respirations of 18/min. Afebrile 97.6 ?F. The patient was provided morphine for chest pain along with Zofran. Initial high-sensitivity troponin was drawn and quite low maikel level of 6. Delta troponin pending at this time. Brain natruretic peptide level is also pending. Other chemistries reveal renal insufficiency, possible acute kidney injury beyond baseline with BUN/creatinine 41/2.51, mild pseudohyponatremia of 135 with hyperglycemia 278. CBC shows isolated microcytosis with an MCV of 75.5 with normal H&H 14.4/42.4%, normal WBCs and platelets. PT/INR 11.4/1.0. EKG shows no acute ischemic changes. I personally saw and examined the patient at the bedside in the ER this evening and requested a posterior EKG to obtain leads V7 through V12 to better assess. Patient states his EKG during prior events was normal. Physical Examination: GENERAL APPEARANCE: Alert, up in bed AAOx3 CARDIAC: Normal S1 and S2. No S3, S4 or murmurs. LUNGS: Clear to auscultation bilaterally. no wheeze/rhonchi/rales ABDOMEN: Positive bowel sounds. Soft, nontender. No guarding or signs of an acute abdomen MUSCULOSKELETAL: Right BKA noted EXTREMITIES: No clubbing, cyanosis or edema NEUROLOGICAL: No focal deficits SKIN: Skin normal color, texture and turgor with no lesions or eruptions. PSYCHIATRIC: Appropriate mood and affect Assessment and plan: 1. Chest pain rule out ACS 2. CAD status post angioplasty 3. Hypertension 4. Peripheral arterial disease 5. COPD 6. Hypertension 7. Type 2 diabetes mellitus 8. Acute kidney injury on chronic kidney disease stage IIIa 9. Benign prostatic hypertrophy 10. Diabetic neuropathy 11. History of anemia of chronic renal disease Patient is very high risk for coronary disease however initial troponin high- sensitivity is near undetectable at 6. Delta troponin is currently pending but with the onset of his chest pain last evening this initial negative lab is encouraging. Irregardless he will receive 324 mg of aspirin for now.PosteriorEKG given his unspecified complex CAD history with stents and posterior heart damage beingreported. Consult to cardiology. Will allow patient to eat this evening presuming no severe rise incardiac markers on second draw or any dynamic EKG changes/chest pain. Continue to trend cardiac markers, routine echocardiogram. 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 Restless legs syndrome Peripheral vascular disease Peripheral edema Lung nodule Insulin long-term use Insomnia Hypotestosteronemia Hypertensive chronic kidney disease with stage 1 through stage 4 chronic kidney disease, or unspecified chronic kidney disease Gout GERD (gastroesophageal reflux disease) Erectile dysfunction Contracture of hand Claudication of both lower extremities Cigarette nicotine dependence with nicotine-induced disorder Bladder mass Atrial fibrillation Atherosclerotic heart disease of [place] coronary artery with unspecified angina pectoris Anxiety Hx of exercise stress test Family history of premature CAD Reports mother had quadruple bypass at age of 45 Myocardial infarction mild Fibromyalgia Chronic back pain Sleep apnea Neuropathy Cataract Peripheral artery disease Hyperlipidemia Diabetes Hypertension Surgical History History of below-knee amputation of right lower extremity 02/2024 [facility] by Dr. Simon Hernández Vascular History of artificial lens replacement Hx of [...] Tobacco Type: cigarettes Substance Use Type: None Substance Abuse Comment: etoh occasionally Social History Comments: mobile home Meds Medications and Allergies Allergies Penicillins Allergy (Unknown, Verified 10/10/24 14:40) Anaphylaxis latex Allergy (Verified 10/10/24 14:40) Unknown Reaction Home Medications albuterol sulfate 90 mcg/actuation aerosol inhaler (ProAir HFA) 2 puff inhalation Q6HR PRN Shortness Of Breath 06/28/19 [History Confirmed 10/10/24] nitroglycerin 0.4 mg sublingual tablet (Nitrostat) 0.4 mg sublingual Q5-15M PRN chest pain 07/12/23[History Confirmed 10/10/24] flash glucose scanning reader (Eka Systemsyle Jigar 2 Ensign) #1 ea 12/28/23 [Rx Confirmed 10/10/24] flash glucose sensor (FreeStyle Jigar 2 Sensor kit) #1 ea 12/28/23 [Rx Confirmed 10/10/24] tiotropium bromide 18 mcg capsule with inhalation device (Spiriva with HandiHaler) 1 cap inhalationDAILY 03/03/24 [History Confirmed 10/10/24] tamsulosin 0.4 mg capsule (Flomax) 0.4 mg PO BID 03/08/24 [History Confirmed 10/10/24] insulin syringe,safety needle 1 mL 30 gauge x 1/2 #100 ea 03/29/24 [Rx Confirmed 10/10/24] aspirin 81 mg tablet,delayed release 81 mg PO DAILY 04/05/24 [History Confirmed 10/10/24] budesonide-formoterol HFA 160 mcg-4.5 mcg/actuation aerosol inhaler 2 puff inhalation BID 04/05/24 [History Confirmed 10/10/24] sildenafil 100 mg tablet 100 mg PO DAILY PRN sexual activity #30 tabs 04/05/24 [Rx Confirmed 10/10/24] pen needle, diabetic 32 gauge x (Comfort EZ Pen Chadron) #100 ea 04/15/24 [Rx Confirmed 10/10/24] hydroxyzine HCl 25 mg tablet 25 mg PO QHS #90 tabs 05/06/24 [Rx Confirmed 10/10/24] dulaglutide 0.75 mg/0.5 mL subcutaneous pen injector (Trulicity) 0.75 mg (0.5 mL) subcut QWEEK #2 mL 06/25/24 [Rx Confirmed 10/10/24] empagliflozin 10 mg tablet (Jardiance) 10 mg PO DAILY #90 tabs 06/25/24 [Rx Confirmed 10/10/24] sitagliptin phosphate 100 mg tablet (Januvia) 100 mg PO DAILY #90 tabs 06/25/24 [Rx Confirmed 10/10/24] atorvastatin 80 mg tablet 80 mg PO DAILY #90 tabs 06/27/24 [Rx Confirmed 10/10/24] glimepiride 2 mg tablet 2 mg PO BID #180 tabs 06/27/24 [Rx Confirmed 10/10/24] furosemide 40 mg tablet (Lasix) 40 mg PO DAILY 08/11/24 [History Confirmed 10/10/24] isosorbide mononitrate 30 mg tablet,extended release 24 hr 30 mg PO DAILY 08/11/24 [History Confirmed 08/30/24] metoprolol tartrate 25 mg tablet 50 mg PO BID 08/11/24 [History Confirmed 10/10/24] ropinirole 0.5 mg tablet 0.5 mg PO TID 08/11/24 [History Confirmed 10/11/24] tizanidine 4 mg tablet 4 mg PO QHS 08/11/24 [History Confirmed 10/10/24] amitriptyline 25 mg tablet 25 mg PO DAILY #90 tabs 08/30/24 [Rx Confirmed 10/10/24] magnesium oxide 400 mg PO DAILY #90 tabs 09/05/24 [Rx Confirmed 10/10/24] clonazepam 0.5 mg tablet (Klonopin) 0.5 mg PO .every morning 30 days #30 tabs 09/11/24 [Rx Confirmed 10/10/24] clopidogrel 75 mg tablet 75 mg PO DAILY #90 tabs 09/12/24 [Rx Confirmed 10/10/24] metformin 1,000 mg tablet 1,000 mg PO BID #180 tabs 09/12/24 [Rx Confirmed 10/10/24] omeprazole 40 mg capsule,delayed release 40 mg PO DAILY 10/10/24 [History Confirmed 10/10/24] pregabalin 75 mg capsule (Lyrica) 225 mg PO TID 10/10/24 [History Confirmed 10/10/24] nicotine 21 mg/24 hr daily transdermal patch 21 mg transdermal DAILY 28 days #28ea 10/11/24 [Rx] Exam Physical Exam Vital Signs: Temp Pulse Resp BP Pulse Ox O2 Del Method 97.6 F 75 18 113/64 97 Room Air 10/10/24 14:36 10/10/24 18:29 10/10/24 18:29 10/10/24 18:29 10/10/24 18:29 10/10/24 18:29 Results - Hospitalist H&P Lab Results Labs: Laboratory Last Values Corrected WBC 8.7 X10E3/uL (4.1-10.5) 10/10/24 15:42 Uncorrected WBC Count 8.7 x10E3/uL (4.1-10.5) 10/10/24 15:42 RBC 5.62 x10E6/uL (3.90-5.60) H 10/10/24 15:42 Hgb 14.4 g/dL (13.0-17.0) 10/10/24 15:42 Hct 42.4 % (38.8-50.0) 10/10/24 15:42 MCV 75.5 fl (83.5-101) L 10/10/24 15:42 MCH 25.6 pg (27.5-35.2) L 10/10/24 15:42 MCHC 33.9 g/dL (32.5-35.6) 10/10/24 15:42 RDW 23.4 % (12.0-14.8) H 10/10/24 15:42 Plt Count 203 x10E3/uL (150-450) 10/10/24 15:42 MPV 9.8 fl (6.6-10.1) 10/10/24 15:42 Neut % (Auto) 61.8 % (.) 10/10/24 15:42 Lymph % (Auto) 23.4 % (.) 10/10/24 15:42 O'Brien % (Auto) 9.5 % (.) 10/10/24 15:42 Eos % (Auto) 4.0 % (.) 10/10/24 15:42 Baso % (Auto) 1.3 % (.) 10/10/24 15:42 Nucleat RBC Rel Count 0.2 /100 WBC (0-0.5) 10/10/24 15:42 Neut # (Auto) 5.3 x10E3/uL (1.8-7.7) 10/10/24 15:42 Lymph # (Auto) 2.0 x10E3/uL (1.00-4.8) 10/10/24 15:42 O'Brien # (Auto) 0.8 x10E3/uL (0.0-0.8) 10/10/24 15:42 Eos # (Auto) 0.3 x10E3/uL (0.0-0.45) 10/10/24 15:42 Baso # (Auto) 0.1 x10E3/uL (0.0-0.2) 10/10/24 15:42 Monocyte Dist Width 16.66 % (0.00-20.00) 10/10/24 15:42 Platelet Estimate Normal (Normal) 10/10/24 15:42 Plt Morphology Comment Normal (Normal) 10/10/24 15:42 RBC Morphology N/A 10/10/24 15:42 Polychromasia Slight 10/10/24 15:42 Poikilocytosis Slight 10/10/24 15:42 Anisocytosis Marked 10/10/24 15:42 Microcytosis Marked 10/10/24 15:42 PT 11.4 Seconds (9.0-12.9) 10/10/24 15:42 INR 1.0 10/10/24 15:42 PHA Creatinine Clear 34.78 10/10/24 15:42 Sodium 135 mmol/L (136-145) L 10/10/24 15:42 Potassium 4.1 mmol/L (3.5-5.1) 10/10/24 15:42 Chloride 98 mmol/L (98-107) 10/10/24 15:42 Carbon Dioxide 25.6 mmol/L (21.0-31.0) 10/10/24 15:42 Anion Gap 15.5 mEq/L (6.0-15.0) H 10/10/24 15:42 BUN 41 mg/dL (7-25) H 10/10/24 15:42 Creatinine 2.51 mg/dL (0.70-1.30) H 10/10/24 15:42 Est GFR (CKD-EPI) 28.735 mL/Min 10/10/24 15:42 Glucose 278 mg/dL (70-100) H 10/10/24 15:42 Calcium 9.7 mg/dL (8.6-10.3) 10/10/24 15:42 Total Creatine Kinase 126 U/L (30-223) 10/10/24 15:42 Troponin I High Sens 6 ng/L (0-20) 10/10/24 15:42 Assessment & Plan Assessment/Plan (1) Chest pain: Plan . IP vs OBS Justification Based on differential dx, clinical care plan, and risk of adverse events, if untreated, in my clinical judgement this patient requires an acute care setting as: OBSERVATION because of an expectation of an under 2 midnight stay. Estimated length of stay (# of days): 2 Documented By: Abdullahi Canchola DO 10/10/24 18 33 Signed By: 10/11/24 1358 [facility] Abdullahi Canchola [facility] Note Date/Time October 11, 2024 1:58pm [facility] [address] [place] [address] Hospitalist H&P Signed Patient: Myra Pickard SR MR#: [id number] : 1965 Acct:[id number] Age/Sex: 59 / M Adm Date: 5 Loc: Room: [address] [place] [address] Type: ADM INOo Attending Dr: Abdullahi Canchola DO Copies to: DO Abdullahi Guzman DO~ HPI DATE OF EXAMINATION: 10/10/24 CHIEF COMPLAINT: Chest pain HISTORY OF PRESENT ILLNESS: This patient is a 59-year-old male presented to the emergency department this afternoon with complaints of sharp chest pain in the midsternal region beginninglast night. He states this came on suddenly when he was sitting and radiates down his left arm. Described as stabbing in nature and similar to that of the chest pain he experienced during previous cardiac events. He reports multivessel PCI's around the time of at [facility]. He hasstent information cards that are indicative of devices in the RCA and PDA. States his previous heart attacks affected the back of his heart. Denies shortness of breath, nausea or diaphoresis presently. This chest pain persisteddespite nitroglycerin taken prior to coming into the ER. His vitals on presentation reveal low normal blood pressure 100/58 with a heart rate of 87 bpm, 100% oxygen saturation on room air with with respirations of 18/min. Afebrile 97.6 ?F. The patient was provided morphine for chest pain along with Zofran. Initial high-sensitivity troponin was drawn and quite low maikel level of 6. Delta troponin pending at this time. Brain natruretic peptide level is also pending. Other chemistries reveal renal insufficiency, possible acute kidney injury beyond baseline with BUN/creatinine 41/2.51, mild pseudohyponatremia of 135 with hyperglycemia 278. CBC shows isolated microcytosis with an MCV of 75.5 with normal H&H 14.4/42.4%, normal WBCs and platelets. PT/INR 11.4/1.0. EKG shows no acute ischemic changes. I personally saw and examined the patient at the bedside in the ER this evening and requested a posterior EKG to obtain leads V7 through V12 to better assess. Patient states his EKG during prior events was normal. Physical Examination: GENERAL APPEARANCE: Alert, up in bed AAOx3 CARDIAC: Normal S1 and S2. No S3, S4 or murmurs. LUNGS: Clear to auscultation bilaterally. no wheeze/rhonchi/rales ABDOMEN: Positive bowel sounds. Soft, nontender. No guarding or signs of an acute abdomen MUSCULOSKELETAL: Right BKA noted EXTREMITIES: No clubbing, cyanosis or edema NEUROLOGICAL: No focal deficits SKIN: Skin normal color, texture and turgor with no lesions or eruptions. PSYCHIATRIC: Appropriate mood and affect Assessment and plan: 1. Chest pain rule out ACS 2. CAD status post angioplasty 3. Hypertension 4. Peripheral arterial disease 5. COPD 6. Hypertension 7. Type 2 diabetes mellitus 8. Acute kidney injury on chronic kidney disease stage IIIa 9. Benign prostatic hypertrophy 10. Diabetic neuropathy 11. History of anemia of chronic renal disease Patient is very high risk for coronary disease however initial troponin high-sensitivity is near undetectable at 6. Delta troponin is currently pending but with the onset of his chest pain last evening this initial negative lab is encouraging. Irregardless he will receive 324 mg of aspirin for now. PosteriorEKG given his unspecified complex CAD history with stents and posterior heart damage being reported. Consult to cardiology. Will allow patient to eat this evening presuming no severe rise in cardiac markers on second draw or any dynamic EKG changes/chest pain. Continue to trend cardiac markers, routine echocardiogram. 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 Restless legs syndrome Peripheral vascular disease Peripheral edema Lung nodule Insulin long-term use Insomnia Hypotestosteronemia Hypertensive chronic kidney disease with stage 1 through stage 4 chronic kidney disease, or unspecified chronic kidney disease Gout GERD (gastroesophageal reflux disease) Erectile dysfunction Contracture of hand Claudication of both lower extremities Cigarette nicotine dependence with nicotine-induced disorder Bladder mass Atrial fibrillation Atherosclerotic heart disease of [place] band coronary artery with unspecified angina pectoris Anxiety Hx of exercise stress test Family history of premature CAD Reports mother had quadruple bypass at age of 45 Myocardial infarction mild Fibromyalgia Chronic back pain Sleep apnea Neuropathy Cataract Peripheral artery disease Hyperlipidemia Diabetes Hypertension Surgical History History of below-knee amputation of right lower extremity 02/2024 [facility] by Dr. Simon Hernández Vascular History of artificial lens replacement Hx of [...] Tobacco Type: cigarettes Substance Use Type: None Substance Abuse Comment: etoh occasionally Social History Comments: mobile home Meds Medications and Allergies Allergies Penicillins Allergy (Unknown, Verified 10/10/24 14:40) Anaphylaxis latex Allergy (Verified 10/10/24 14:40) Unknown Reaction Home Medications albuterol sulfate 90 mcg/actuation aerosol inhaler (ProAir HFA) 2 puff inhalation Q6HR PRN Shortness Of Breath 06/28/19 [History Confirmed 10/10/24] nitroglycerin 0.4 mg sublingual tablet (Nitrostat) 0.4 mg sublingual Q5-15M PRN chest pain 07/12/23 [History Confirmed 10/10/24] flash glucose scanning reader (UlmonStyle Jigar 2 Ensign) #1 ea 12/28/23 [Rx Confirmed 10/10/24] flash glucose sensor (FreeStyle Jigar 2 Sensor kit) #1 ea 12/28/23 [Rx Confirmed 10/10/24] tiotropium bromide 18 mcg capsule with inhalation device (Spiriva with HandiHaler) 1 cap inhalation DAILY 03/03/24 [History Confirmed 10/10/24] tamsulosin 0.4 mg capsule (Flomax) 0.4 mg PO BID 03/08/24 [History Confirmed 10/10/24] insulin syringe,safety needle 1 mL 30 gauge x 1/2 #100 ea 03/29/24 [Rx Confirmed 10/10/24] aspirin 81 mg tablet,delayed release 81 mg PO DAILY 04/05/24 [History Confirmed 10/10/24] budesonide-formoterol HFA 160 mcg-4.5 mcg/actuation aerosol inhaler 2 puff inhalation BID 04/05/24 [History Confirmed 10/10/24] sildenafil 100 mg tablet 100 mg PO DAILY PRN sexual activity #30 tabs 04/05/24 [Rx Confirmed 10/10/24] pen needle, diabetic 32 gauge x 5/32 (Comfort EZ Pen Chadron) #100 ea 04/15/24 [Rx Confirmed 10/10/24] hydroxyzine HCl 25 mg tablet 25 mg PO QHS #90 tabs 05/06/24 [Rx Confirmed 10/10/24] dulaglutide 0.75 mg/0.5 mL subcutaneous pen injector (Trulicity) 0.75 mg (0.5 mL) subcut QWEEK #2 mL 06/25/24 [Rx Confirmed 10/10/24] empagliflozin 10 mg tablet (Jardiance) 10 mg PO DAILY #90 tabs 06/25/24 [Rx Confirmed 10/10/24] sitagliptin phosphate 100 mg tablet (Januvia) 100 mg PO DAILY #90 tabs 06/25/24 [Rx Confirmed 10/10/24] atorvastatin 80 mg tablet 80 mg PO DAILY #90 tabs 06/27/24 [Rx Confirmed 10/10/24] glimepiride 2 mg tablet 2 mg PO BID #180 tabs 06/27/24 [Rx Confirmed 10/10/24] furosemide 40 mg tablet (Lasix) 40 mg PO DAILY 08/11/24 [History Confirmed 10/10/24] isosorbide mononitrate 30 mg tablet,extended release 24 hr 30 mg PO DAILY 08/11/24 [History Confirmed 08/30/24] metoprolol tartrate 25 mg tablet 50 mg PO BID 08/11/24 [History Confirmed 10/10/24] ropinirole 0.5 mg tablet 0.5 mg PO TID 08/11/24 [History Confirmed 10/11/24] tizanidine 4 mg tablet 4 mg PO QHS 08/11/24 [History Confirmed 10/10/24] amitriptyline 25 mg tablet 25 mg PO DAILY #90 tabs 08/30/24 [Rx Confirmed 10/10/24] magnesium oxide 400 mg PO DAILY #90 tabs 09/05/24 [Rx Confirmed 10/10/24] clonazepam 0.5 mg tablet (Klonopin) 0.5 mg PO .every morning 30 days #30 tabs 09/11/24 [Rx Confirmed 10/10/24] clopidogrel 75 mg tablet 75 mg PO DAILY #90 tabs 09/12/24 [Rx Confirmed 10/10/24] metformin 1,000 mg tablet 1,000 mg PO BID #180 tabs 09/12/24 [Rx Confirmed 10/10/24] omeprazole 40 mg capsule,delayed release 40 mg PO DAILY 10/10/24 [History Confirmed 10/10/24] pregabalin 75 mg capsule (Lyrica) 225 mg PO TID 10/10/24 [History Confirmed 10/10/24] nicotine 21 mg/24 hr daily transdermal patch 21 mg transdermal DAILY 28 days #28ea 10/11/24 [Rx] Exam Physical Exam Vital Signs: Temp Pulse Resp BP Pulse Ox O2 Del Method 97.6 F 75 18 113/64 97 Room Air 10/10/24 14:36 10/10/24 18:29 10/10/24 18:29 10/10/24 18:29 10/10/24 18:29 10/10/24 18:29 Results - Hospitalist H&P Lab Results Labs: Laboratory Last Values Corrected WBC 8.7 X10E3/uL (4.1-10.5) 10/10/24 15:42 Uncorrected WBC Count 8.7 x10E3/uL (4.1-10.5) 10/10/24 15:42 RBC 5.62 x10E6/uL (3.90-5.60) H 10/10/24 15:42 Hgb 14.4 g/dL (13.0-17.0) 10/10/24 15:42 Hct 42.4 % (38.8-50.0) 10/10/24 15:42 MCV 75.5 fl (83.5-101) L 10/10/24 15:42 MCH 25.6 pg (27.5-35.2) L 10/10/24 15:42 MCHC 33.9 g/dL (32.5-35.6) 10/10/24 15:42 RDW 23.4 % (12.0-14.8) H 10/10/24 15:42 Plt Count 203 x10E3/uL (150-450) 10/10/24 15:42 MPV 9.8 fl (6.6-10.1) 10/10/24 15:42 Neut % (Auto) 61.8 % (.) 10/10/24 15:42 Lymph % (Auto) 23.4 % (.) 10/10/24 15:42 O'Brien % (Auto) 9.5 % (.) 10/10/24 15:42 Eos % (Auto) 4.0 % (.) 10/10/24 15:42 Baso % (Auto) 1.3 % (.) 10/10/24 15:42 Nucleat RBC Rel Count 0.2 /100 WBC (0-0.5) 10/10/24 15:42 Neut # (Auto) 5.3 x10E3/uL (1.8-7.7) 10/10/24 15:42 Lymph # (Auto) 2.0 x10E3/uL (1.00-4.8) 10/10/24 15:42 O'Brien # (Auto) 0.8 x10E3/uL (0.0-0.8) 10/10/24 15:42 Eos # (Auto) 0.3 x10E3/uL (0.0-0.45) 10/10/24 15:42 Baso # (Auto) 0.1 x10E3/uL (0.0-0.2) 10/10/24 15:42 Monocyte Dist Width 16.66 % (0.00-20.00) 10/10/24 15:42 Platelet Estimate Normal (Normal) 10/10/24 15:42 Plt Morphology Comment Normal (Normal) 10/10/24 15:42 RBC Morphology N/A 10/10/24 15:42 Polychromasia Slight 10/10/24 15:42 Poikilocytosis Slight 10/10/24 15:42 Anisocytosis Marked 10/10/24 15:42 Microcytosis Marked 10/10/24 15:42 PT 11.4 Seconds (9.0-12.9) 10/10/24 15:42 INR 1.0 10/10/24 15:42 PHA Creatinine Clear 34.78 10/10/24 15:42 Sodium 135 mmol/L (136-145) L 10/10/24 15:42 Potassium 4.1 mmol/L (3.5-5.1) 10/10/24 15:42 Chloride 98 mmol/L (98-107) 10/10/24 15:42 Carbon Dioxide 25.6 mmol/L (21.0-31.0) 10/10/24 15:42 Anion Gap 15.5 mEq/L (6.0-15.0) H 10/10/24 15:42 BUN 41 mg/dL (7-25) H 10/10/24 15:42 Creatinine 2.51 mg/dL (0.70-1.30) H 10/10/24 15:42 Est GFR (CKD-EPI) 28.735 mL/Min 10/10/24 15:42 Glucose 278 mg/dL (70-100) H 10/10/24 15:42 Calcium 9.7 mg/dL (8.6-10.3) 10/10/24 15:42 Total Creatine Kinase 126 U/L (30-223) 10/10/24 15:42 Troponin I High Sens 6 ng/L (0-20) 10/10/24 15:42 Assessment & Plan Assessment/Plan (1) Chest pain: Plan . IP vs OBS Justification Based on differential dx, clinical care plan, and risk of adverse events, if untreated, in my clinical judgement this patient requires an acute care setting as: OBSERVATION because of an expectation of an under 2 midnight stay. Estimated length of stay (# of days): 2 Documented By: Abdullahi Canchola DO 10/10/24 18 33 Signed By: <Electronically signed by Abdullahi Canchoal DO> 10/11/24 1357 [facility] Work Phone: History general Narrative [...] CLAUDICATION Surgical History APPENDECTOMY 1989 Surgical History NIRANJAN CARPAL TUNNEL RELEASE 2009 Surgical History NIRANJAN CATARACT EXTRATION AND LENS INPLANTS 2010 Surgical [...] Boss 07/2020 Hospitalization History Deep Depression, Anxiety; [facility] 11-11-10 Hospitalization History [facility] hypoxemia and hyper capnic respirtory failure 11/11/16 Hospitalization History chest pain [facility] 04/02/18 [employer] Other History of Present illness NarrativeReturns in [...] [facility] blood [facility] Work Phone: History of [...] denies medication side effects. [facility] 600 DO Work Phone: History of [...] medication regimen. He denies medication side effects. [facility] 250 DO Work Phone: Hospital course Narrative No data available for this section [facility] Hospital Discharge instructions No data available for this section [facility] Hospital Discharge instructionsAmbulatory Orders* Referral to Pain Management Time Frame: 08/30/24, Location: [facility] Work Phone: InstructionsNot on filedocumented in this encounter [facility] [...] for this section [facility] Progress note Author Kevon Viera [facility] Note Date/Time August 11, 2024 1:21 pm [facility] [address] [place] [id number] Progress Note Signed Patient: Myra Pickard SR MR#: [id number] : 1965 Acct:[id number] Age/Sex: 59 / M Adm Date: 5 Loc: 3T Room: [address] [place] [address] Type: ADM IN Attending Dr: Kevon Viera MD Copies to: ~ Date of Service: 08/11/2024 Progress Narrative Note PROGRESS NOTE Progress Note: Patient was seen and evaluated at bedside. He was admitted overnight by overnight hospitalist, refer to H&P for further details, continue current management with IV fluids and replacing electrolytes as needed, nephrology has been consulted, input appreciated, patient clinically feeling better today, discussed with patient, all question answered. Documented By: Kevon Viera MD 08/11/24 13 20 Signed By: <Electronically signed by Kevon Viera MD> 08/11/24 1321 [facility] Work Phone: Progress note Author Maurice Francis [facility] Note Date/Time August 12, 2024 11: 47am [facility] [address] [place] [id number] Nephrology Progress Note Signed Patient: Myra Pickard SR MR#: [id number] : 1965 Acct:[id number] Age/Sex: 59 / M Adm Date: 5 Loc: 3T Room: [address] [place] [address] Type: ADM IN Attending Dr: Kevon Viera MD Copies to: ~ Date of Service: 08/12/2024 Subjective Subjective Narrative: This is a 59-year-old male patient with past med history of BPH, COPD, coronaryartery disease, CKD stage IIIb follows with me in renal office, GERD and A-fib, A-fib, diabetes, peripheral vascular disease. Patient presented to the hospitalfor sudden onset of tingling's and numbness all over his body along with dizziness and lightheadedness. Patient had CT of the head in the emergency roomwhich was negative for acute process. Lab revealed creatinine up to 2.6 mg deciliter from baseline at around 2.2 mg deciliter last month. Magnesium is wasfound to be severely low at 0.5 mg deciliter, calcium 6.1, potassium 3.1. Patient was admitted and received 6 g of magnesium sulfate in addition to 1 g ofcalcium gluconate and 40 mill equivalents of oral potassium. Patient also started on IV fluid normal saline with 20 mill equivalent KCl at 125 cc/h. Patient also was found to have vitamin B12 deficiency and started on oral supplement. Patient also has iron deficiency with iron saturation 7% and ferritin 5.3. Hemoglobin 11.6 Renal team was consulted for acute kidney injury on chronic kidney disease. INTERIM HISTORY: Patient was seen and examined at bedside. He is feeling better today and continues to have a high urine output. Denies any chest pain palpation cough nausea vomit diarrhea and shortness of breath Exam Physical Exam Vital Signs: Temp Pulse Resp BP Pulse Ox O2 Del Method 97.8 F 66 18 119/73 96 Room Air 08/12/24 08:23 08/12/24 08:52 08/12/24 08:52 08/12/24 08:23 08/12/24 08:23 08/12/24 08:23 Narrative: General: Appears comfortable and not in distress Heart: S1-S2, no rub Lung: Bilateral air entry, no wheezing or crackles Abdomen: Soft, positive bowel sounds Extremities: No edema, no cyanosis Head: Atraumatic, normocephalic Ear: No gross hearing Deficit or external ear redness Eyes: No pallor or redness Neck: No JVD or visible mass Skin: No rashes , warm to touch 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: Awake,Alert, 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 Musculoskeletal: No swelling or limitation of movement of the large joints Psychiatric: Cooperative, normal mood and affect Objective Intake and Output I&O: Intake & Output 08/09/24 08/10/24 08/12/24 08/12/24 23:59 23:59 00:59 23:59 Intake Total 2760 / 2760 1480 / 1480 Output Total 2150 / 2150 800 / 800 Balance 610 / 610 680 / 680 Weight 91.3 kg 90 kg Meds and Allergies Meds: Active Medications Acetaminophen (Acetaminophen 325 Mg Tablet) 650 mg PO Q4H PRN PRN Reason: Pain Scale 1 - 5 Stop: 08/11/25 05:38 Last Admin: 08/11/24 06:59 Dose: 650 mg Albuterol (Albuterol Neb 2.5 Mg/3 Ml Vial.Neb) 2.5 mg INHALATION Q2H PRN PRN Reason: Shortness Of Breath Stop: 08/11/25 05:38 Amitriptyline HCl (Amitriptyline 25 Mg Tablet) 25 mg PO HS SATISH Stop: 08/11/25 21:59 Last Admin: 08/11/24 21:17 Dose: 25 mg Aspirin (Aspirin 81 Mg Tablet.Dr) 81 mg PO DAILY SATISH Stop: 08/11/25 08:59 Last Admin: 08/12/24 08:27 Dose: 81 mg Atorvastatin Calcium (Atorvastatin 80 Mg Tablet) 80 mg PO DAILY SATISH Stop: 08/11/25 08:59 Last Admin: 08/12/24 08:27 Dose: 80 mg Budesonide/Formoterol Fumarate (Budesonide/Formoterol 160-4.5 Mcg 60 Puff/6 Gm Hfa.Aer.Ad) 2 puff INHALATION BID SATISH Stop: 08/11/25 08:59 Last Admin: 08/12/24 08:52 Dose: 2 puff Calcium Carbonate (Calcium Carbonate/Vitamin D3 500 Mg/200 Unit Tablet) 2 tab PO TID.WITH.MEALS SATISH Stop: 08/11/25 07:59 Last Admin: 08/12/24 08:27 Dose: 2 tab Clopidogrel Bisulfate (Clopidogrel Bisulfate 75 Mg Tablet) 75 mg PO DAILY SATISH Stop: 08/11/25 08:59 Last Admin: 08/12/24 08:27 Dose: 75 mg Cyanocobalamin (Cyanocobalamin 1,000 Mcg/Ml Vial) 1,000 mcg IM DAILY SATISH Stop: 08/17/24 09:01 Last Admin: 08/12/24 08:27 Dose: 1,000 mcg Dextrose (Dextrose 50% In Water 25 Gm/50 Ml Syringe) 0 gm IV-PUSH PRN PRN PRN Reason: Hypoglycemia Stop: 08/11/25 05:38 Docusate Sodium (Docusate 100 Mg Capsule) 200 mg PO BID PRN PRN Reason: Constipation Stop: 08/11/25 05:38 Glucose (Dextrose 40% Gel 15 Gm Tube) 0 gm PO PRN PRN PRN Reason: Hypoglycemia Stop: 08/11/25 05:38 Heparin Sodium (Porcine) (Heparin 5,000 Unit/Ml Vial) 5,000 unit SUBCUT Q12HR [facility] Stop: 08/11/25 08:59 Last Admin: 08/12/24 08:27 Dose: 5,000 unit Hydralazine HCl (Hydralazine 20 Mg/Ml Vial) 10 mg IV-PUSH Q4H PRN PRN Reason: if SBP > 185 Stop: 08/11/25 05:38 Potassium Chloride/Sodium Chloride (0.9 % Nacl-20 Meq Kcl) 1,000 mls @ 125 mls/hr IV .Q8H SATISH Stop: 08/11/25 07:14 Last Admin: 08/12/24 08:26 Dose: 125 mls/hr Ferric Sodium Gluconate Complex 250 mg/ Sodium Chloride 270 mls @ 135 mls/hr IVQAM [facility] Stop: 08/14/24 10:59 Last Admin: 08/12/24 09:19 Dose: 135 mls/hr Insulin Aspart (Insulin Aspart 300 Units/3 Ml) 0 units SUBCUT TID.[facility]; Protocol Stop: 08/11/25 07:59 Last Admin: 08/12/24 08:27 Dose: Not Given Ipratropium [place] (Ipratropium [place] 0.5 Mg/2.5 Ml Vial.Neb) 0.5 mg INHALATION QID.RESP [facility] Stop: 08/11/25 07:59 Last Admin: 08/12/24 08:51 Dose: 0.5 mg Isosorbide Mononitrate (Isosorbide Mononitrate 24hr Er 30 Mg Tab.Er.24h) 30 mg PO DAILY SATISH Stop: 08/11/25 08:59 Last Admin: 08/12/24 08:27 Dose: 30 mg Metoprolol Tartrate (Metoprolol Tartrate 100 Mg Tablet) 100 mg PO BID [facility] Stop: 08/11/25 08:59 Last Admin: 08/12/24 08:27 Dose: 100 mg Pantoprazole Sodium (Pantoprazole 40 Mg Tablet.Dr) 40 mg PO BID [facility] Stop: 08/11/25 08:59 Last Admin: 08/12/24 08:27 Dose: 40 mg Pregabalin (Pregabalin 75 Mg Capsule) 75 mg PO TID SATISH Stop: 02/07/25 08:59 Last Admin: 03/10/25 08:27 Dose: 75 mg Ropinirole HCl (Ropinirole 1 Mg Tablet) 1 mg PO TID SATISH Stop: 08/11/25 08:59 Last Admin: 08/12/24 08:27 Dose: 1 mg Tamsulosin HCl (Tamsulosin 0.4 Mg Cap.Er.24h) 0.4 mg PO BID SATISH Stop: 08/11/25 08:59 Last Admin: 08/12/24 08:27 Dose: 0.4 mg Tizanidine HCl (Tizanidine 4 Mg Tablet) 4 mg PO QHS SATISH Stop: 08/11/25 21:59 Last Admin: 08/11/24 21:17 Dose: 4 mg Allergies Penicillins Allergy (Unknown, Verified 08/11/24 04:06) Anaphylaxis latex Allergy (Verified 08/11/24 04:06) Unknown Reaction Results - Nephrology Labs 08/12/24 05:01 08/12/24 05:01 Labs: 08/12/24 08/12/24 05:01 05:01 BUN 20 Creatinine 1.79 H D Albumin 3.5 Cancelled Radiology Impressions Impressions - last 24 hours: Any impression(s) listed above is documentation that was entered by the reading physician into a diagnostic report(s) for Myra Pickard SR. I have reviewed the report(s) and am incorporating any findings in the treatment plan of this patient where applicable. A&P - Nephrology Assessment/Plan (1) Acute kidney injury superimposed on CKD: Assessment/Problem Details: Patient has CKD stage IIIb from diabetic and hypertensive nephropathy. Baselinecreatinine fluctuate depending on the volume status and variation in blood pressure. Patient received IV contrast at admission for CTA of the head. Serumcreatinine at presentation 2.6 mg deciliter. Patient stated he has been making urine. (2) Hypomagnesemia: Assessment/Problem Details: Patient has been on PPI twice daily for GERD symptoms. He follows with Dr. Burleson in GI clinic. Magnesium level at presentation 0.5 mmol/L. Patient received 6 g of magnesium sulfate (3) Hypocalcemia: Assessment/Problem Details: This is likely from hypomagnesemia. Serum calcium level 6.1 on presentation. Patient received 1 g of calcium gluconate (4) Hypokalemia: Assessment/Problem Details: This is likely also from hypomagnesemia. Patient received 40 mill equivalent p.o. at admission and currently on IV KCl and normal saline (5) Iron deficiency: Assessment/Problem Details: Lab study revealed iron saturation only 7% with very low ferritin level. (6) Vitamin B12 deficiency: Assessment/Problem Details: Serum vitamin B12 level at admission 129. Patient currently on cyanocobalamin 10 mcg p.o. daily (7) BPH loc w urin obs/LUTS: Assessment/Problem Details: patient takes Flomax twice daily at home Plan * Continue holding home Jardiance, valsartan/hydrochlorothiazide and Lasix. * Stop IV fluid * Will give calcium gluconate 3 g IV x 1 dose. * Continue accurate urine output documentation * Continue to monitor electrolytes and replace as needed * Will start the patient on loading dose of Ferrlecit 250 mg X4 * Continue vitamin B12 supplement * Check CBC renal function panel in a.m. Documented By: Maurice Francis MD 08/12/24 1115 Signed By: <Electronically signed by Maurice Francis MD> 08/12/24 1147 [facility] Work Phone: Progress note Author Kevon Viera [facility] Note Date/Time August 12, 2024 3:1 6pm [facility] [address] [place] [address] Hospitalist Progress Note Signed Patient: Myra Pickard SR MR#: [id number] : 1965 Acct:[id number] Age/Sex: 59 / M Adm Date: 5 Loc: 3T Room: [address] [place] [address] Type: ADM IN Attending Dr: Kevon Viera MD Copies to: ~ Date of Service: 08/12/2024 Subjective Subjective Narrative: Patient was evaluated at bedside, with afebrile here, no leukocytosis, patient overall feeling better. Denies nausea or vomiting, tolerating diet, labs showing improvement. Nephrology team following. Exam Physical Exam Vital Signs: Temp Pulse Resp BP Pulse Ox O2 Del Method 97.8 F 72 18 101/60 98 Room Air 08/12/24 08:23 08/12/24 12:32 08/12/24 12:32 08/12/24 11:16 08/12/24 11:16 08/12/24 11:16 Narrative: Const General: cooperative HEENT Normal oropharyngeal mucosa without any ulcers or exudates Eyes: Conjunctiva normal Pulmonary Auscultation: clear to auscultation , no crackles, no wheezes Cardiovascular Rate: normal rate Rhythm: regular rhythm Heart Sounds: S1 normal, S2 normal and no murmurs GI Inspection: non-distended Palpation: soft, not firm and nontender. No rigidity or rebound. Deferred Neuro General: alert, awake and oriented x3. No obvious new focal deficit Musculoskeletal: normal range of motion Extrem General: no cyanosis, R BKA Psych Appearance: appropriate affect. Grossly normal Objective Lab Results 08/12/24 05:01 08/12/24 05:01 Meds Allergies and Active Meds Allergies Penicillins Allergy (Unknown, Verified 08/11/24 04:06) Anaphylaxis latex Allergy (Verified 08/11/24 04:06) Unknown Reaction Active Meds: Active Medications Generic Name Dose Route Start Last Admin Trade Name Freq PRN Reason Stop Dose Admin Acetaminophen 650 mg 08/11/24 05:39 08/11/24 06:59 Acetaminophen 325 Mg Tablet PO 08/11/25 05:38 650 mg Q4H PRN Administration Pain Scale 1 - 5 Albuterol 2.5 mg 08/11/24 05:39 Albuterol Neb 2.5 Mg/3 Ml Vial.Neb INHALATION 08/11/25 05:38 Q2H PRN Shortness Of Breath Amitriptyline HCl 25 mg 08/11/24 22:00 08/11/24 21:17 Amitriptyline 25 Mg Tablet PO 08/11/25 21:59 25 mg HS SATISH Administration Aspirin 81 mg 08/11/24 09:00 08/12/24 08:27 Aspirin 81 Mg Tablet.Dr PO 08/11/25 08:59 81 mg DAILY SATISH Administration Atorvastatin Calcium 80 mg 08/11/24 09:00 08/12/24 08:27 Atorvastatin 80 Mg Tablet PO 08/11/25 08:59 80 mg DAILY SATISH Administration Budesonide/Formoterol Fumarate 2 puff 08/11/24 09:00 08/12/24 08:52 Budesonide/Formoterol 160-4.5 Mcg 60 Puff/6 Gm Hfa.Aer.Ad INHALATION 08/11/25 08:59 2 puff BID SATISH Administration Calcium Carbonate 2 tab 08/11/24 08:00 08/12/24 11:19 Calcium Carbonate/Vitamin D3 500 Mg/200 Unit Tablet PO 08/11/25 07:59 2 tab TID.WITH.MEALS SATISH Administration Clopidogrel Bisulfate 75 mg 08/11/24 09:00 08/12/24 08:27 Clopidogrel Bisulfate 75 Mg Tablet PO 08/11/25 08:59 75 mg DAILY SATISH Administration Cyanocobalamin 1,000 mcg 08/11/24 09:00 08/12/24 08:27 Cyanocobalamin 1,000 Mcg/Ml Vial IM 08/17/24 09:01 1,000 mcg DAILY SATISH Administration Dextrose 0 gm 08/11/24 05:39 Dextrose 50% In Water 25 Gm/50 Ml Syringe IV-PUSH 08/11/25 05:38 PRN PRN Hypoglycemia Docusate Sodium 200 mg 08/11/24 05:39 Docusate 100 Mg Capsule PO 08/11/25 05:38 BID PRN Constipation Glucose 0 gm 08/11/24 05:39 Dextrose 40% Gel 15 Gm Tube PO 08/11/25 05:38 PRN PRN Hypoglycemia Heparin Sodium (Porcine) 5,000 unit 08/11/24 09:00 08/12/24 08:27 Heparin 5,000 Unit/Ml Vial SUBCUT 08/11/25 08:59 5,000 unit Q12HR SATISH Administration Hydralazine HCl 10 mg 08/11/24 05:39 Hydralazine 20 Mg/Ml Vial IV-PUSH 08/11/25 05:38 Q4H PRN if SBP > 185 Potassium Chloride/Sodium Chloride 1,000 mls @ 125 mls/hr 08/11/24 07:15 08/12/24 08:26 0.9 % Nacl-20 Meq Kcl IV 08/11/25 07:14 125 mls/hr .Q8H SATISH Administration Ferric Sodium Gluconate 270 mls @ 135 mls/hr 08/11/24 15:00 08/12/24 09:19 Complex 250 mg/ Sodium IV 08/14/24 10:59 135 mls/hr Chloride QAM SATISH Administration Insulin Aspart 0 units 08/11/24 08:00 08/12/24 11:33 Insulin Aspart 300 Units/3 Ml SUBCUT 08/11/25 07:59 1 units TID.WM.HS SATISH Administration Protocol Ipratropium [place] 0.5 mg 08/11/24 08:00 08/12/24 12:31 Ipratropium [place] 0.5 Mg/2.5 Ml Vial.Neb INHALATION 08/11/25 07:59 0.5 mg QID.RESP SATISH Administration Isosorbide Mononitrate 30 mg 08/11/24 09:00 08/12/24 08:27 Isosorbide Mononitrate 24hr Er 30 Mg Tab.Er.24h PO 08/11/25 08:59 30 mg DAILY SATISH Administration Metoprolol Tartrate 100 mg 08/11/24 09:00 08/12/24 08:27 Metoprolol Tartrate 100 Mg Tablet PO 08/11/25 08:59 100 mg BID SATISH Administration Pantoprazole Sodium 40 mg 08/11/24 09:00 08/12/24 08:27 Pantoprazole 40 Mg Tablet.Dr PO 08/11/25 08:59 40 mg BID SATISH Administration Pregabalin 75 mg 08/11/24 09:00 08/12/24 13:27 Pregabalin 75 Mg Capsule PO 02/07/25 08:59 75 mg TID SATISH Administration Ropinirole HCl 1 mg 08/11/24 09:00 08/12/24 13:27 Ropinirole 1 Mg Tablet PO 08/11/25 08:59 1 mg TID SATISH Administration Tamsulosin HCl 0.4 mg 08/11/24 09:00 08/12/24 08:27 Tamsulosin 0.4 Mg Cap.Er.24h PO 08/11/25 08:59 0.4 mg BID SATISH Administration Tizanidine HCl 4 mg 08/11/24 22:00 08/11/24 21:17 Tizanidine 4 Mg Tablet PO 08/11/25 21:59 4 mg QHS SATISH Administration A&P - Hospitalist Assessment/Plan (1) Acute kidney injury superimposed on CKD: Plan 1. Bilateral paresthesias of the upper and lower extremities without any other focal neurological dysfunction CT scan of the head/CTA of the head and neck done in the emergency room without acute findings Likely due to significant electrolyte abnormalities including severe hypomagnesemia/hypokalemia/hypocalcemia -given IV replacement Vitamin B12 deficiency could contribute as well, started replacement Given additional Calcium supplements today 2. Acute kidney injury with underlying chronic kidney disease stage III baseline creatinine 1.8, Nephrology following We holding Jardiance, valsartan/hydrochlorothiazide and Lasix. 3. Microcytic anemia previously diagnosed with iron deficiency Iron infusions as directed 4. Diabetes mellitus type 2 with hemoglobin A1c 7.3 Continue with home therapy, sliding scale 5. Coronary artery disease status post previous intervention, currently patientdenies any chest pain, troponin negative, EKG nonischemic 6. DVT prophylaxis heparin Discussed with pt at bedside all questions answered If remains stable, plan to discharge tomorrow PT OT recs for rehab however pt declined and would like to go home Documented By: Kevon Viera MD 08/12/24 15 12 Signed By: <Electronically signed by Kevon Viera MD> 08/12/24 1405 [facility] Work Phone: Progress note Author Maurice Francis [facility] Note Date/Time August 13, 2024 11: 06am [facility] [address] [place] [address] Nephrology Progress Note Signed Patient: Myra Pickard MR#: [id number] : 1965 Acct:[id number] Age/Sex: 59 / M Adm Date: 5 Loc: Room: [address] [place] [address] Type: ADM IN Attending Dr: Kevon Viera MD Copies to: ~ Date of Service: 08/13/2024 Subjective Subjective Narrative: This is a 59-year-old male patient with past med history of BPH, COPD, coronaryartery disease, CKD stage IIIb follows with me in renal office, GERD and A-fib, A-fib, diabetes, peripheral vascular disease. Patient presented to the hospitalfor sudden onset of tingling's and numbness all over his body along with dizziness and lightheadedness. Patient had CT of the head in the emergency roomwhich was negative for acute process. Lab revealed creatinine up to 2.6 mg deciliter from baseline at around 2.2 mg deciliter last month. Magnesium is wasfound to be severely low at 0.5 mg deciliter, calcium 6.1, potassium 3.1. Patient was admitted and received 6 g of magnesium sulfate in addition to 1 g ofcalcium gluconate and 40 mill equivalents of oral potassium. Patient also started on IV fluid normal saline with 20 mill equivalent KCl at 125 cc/h. Patient also was found to have vitamin B12 deficiency and started on oral supplement. Patient also has iron deficiency with iron saturation 7% and ferritin 5.3. Hemoglobin 11.6 Renal team was consulted for acute kidney injury on chronic kidney disease. INTERIM HISTORY: Patient was seen and examined at bedside. Denies any chest pain palpation cough nausea vomit diarrhea and shortness of breath Exam Physical Exam Vital Signs: Temp Pulse Resp BP Pulse Ox O2 Del Method 97.6 F 67 18 136/86 99 Room Air 08/13/24 08:21 08/13/24 08:21 08/13/24 08:21 08/13/24 08:21 08/13/24 08:21 08/13/24 08:23 Narrative: General: Appears comfortable and not in distress Heart: S1-S2, no rub Lung: Bilateral air entry, no wheezing or crackles Abdomen: Soft, positive bowel sounds Extremities: No edema, no cyanosis Head: Atraumatic, normocephalic Ear: No gross hearing Deficit or external ear redness Eyes: No pallor or redness Neck: No JVD or visible mass Skin: No rashes , warm to touch 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: Awake,Alert, 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 Musculoskeletal: No swelling or limitation of movement of the large joints Psychiatric: Cooperative, normal mood and affect Objective Intake and Output I&O: Intake & Output 08/10/24 08/12/24 08/12/24 08/13/24 23:59 00:59 23:59 23:59 Intake Total 2760 / 2760 1880 / 1880 400 / 400 Output Total 2150 / 2150 3025 / 3025 1650 / 1650 Balance 610 / 610 -1145 / -1145 -1250 / -1250 Weight 91.3 kg 90 kg 91.5 kg Meds and Allergies Meds: Active Medications Acetaminophen (Acetaminophen 325 Mg Tablet) 650 mg PO Q4H PRN PRN Reason: Pain Scale 1 - 5 Stop: 08/11/25 05:38 Last Admin: 08/12/24 20:22 Dose: 650 mg Albuterol (Albuterol Neb 2.5 Mg/3 Ml Vial.Neb) 2.5 mg INHALATION Q2H PRN PRN Reason: Shortness Of Breath Stop: 08/11/25 05:38 Amitriptyline HCl (Amitriptyline 25 Mg Tablet) 25 mg PO HS SATISH Stop: 08/11/25 21:59 Last Admin: 08/12/24 21:48 Dose: 25 mg Aspirin (Aspirin 81 Mg Tablet.Dr) 81 mg PO DAILY SATISH Stop: 08/11/25 08:59 Last Admin: 08/13/24 08:25 Dose: 81 mg Atorvastatin Calcium (Atorvastatin 80 Mg Tablet) 80 mg PO DAILY SATISH Stop: 08/11/25 08:59 Last Admin: 08/13/24 08:25 Dose: 80 mg Budesonide/Formoterol Fumarate (Budesonide/Formoterol 160-4.5 Mcg 60 Puff/6 Gm Hfa.Aer.Ad) 2 puff INHALATION BID SATISH Stop: 08/11/25 08:59 Last Admin: 08/13/24 07:54 Dose: 2 puff Calcium Carbonate (Calcium Carbonate/Vitamin D3 500 Mg/200 Unit Tablet) 2 tab PO TID.WITH.MEALS SATISH Stop: 08/11/25 07:59 Last Admin: 08/13/24 08:25 Dose: 2 tab Clopidogrel Bisulfate (Clopidogrel Bisulfate 75 Mg Tablet) 75 mg PO DAILY SATISH Stop: 08/11/25 08:59 Last Admin: 08/13/24 08:25 Dose: 75 mg Cyanocobalamin (Cyanocobalamin 1,000 Mcg/Ml Vial) 1,000 mcg IM DAILY SATISH Stop: 08/17/24 09:01 Last Admin: 08/13/24 08:25 Dose: 1,000 mcg Dextrose (Dextrose 50% In Water 25 Gm/50 Ml Syringe) 0 gm IV-PUSH PRN PRN PRN Reason: Hypoglycemia Stop: 08/11/25 05:38 Docusate Sodium (Docusate 100 Mg Capsule) 200 mg PO BID PRN PRN Reason: Constipation Stop: 08/11/25 05:38 Glucose (Dextrose 40% Gel 15 Gm Tube) 0 gm PO PRN PRN PRN Reason: Hypoglycemia Stop: 08/11/25 05:38 Heparin Sodium (Porcine) (Heparin 5,000 Unit/Ml Vial) 5,000 unit SUBCUT Q12HR SATISH Stop: 08/11/25 08:59 Last Admin: 08/13/24 08:25 Dose: 5,000 unit Hydralazine HCl (Hydralazine 20 Mg/Ml Vial) 10 mg IV-PUSH Q4H PRN PRN Reason: if SBP > 185 Stop: 08/11/25 05:38 Ferric Sodium Gluconate Complex 250 mg/ Sodium Chloride 270 mls @ 135 mls/hr IVQAM [facility] Stop: 08/14/24 10:59 Last Admin: 08/12/24 09:19 Dose: 135 mls/hr Insulin Aspart (Insulin Aspart 300 Units/3 Ml) 0 units SUBCUT TID.WM.HS [facility]; Protocol Stop: 08/11/25 07:59 Last Admin: 08/13/24 08:25 Dose: 1 units Ipratropium [place] (Ipratropium [place] 0.5 Mg/2.5 Ml Vial.Neb) 0.5 mg INHALATION QID.RESP SATISH Stop: 08/11/25 07:59 Last Admin: 08/13/24 07:54 Dose: 0.5 mg Isosorbide Mononitrate (Isosorbide Mononitrate 24hr Er 30 Mg Tab.Er.24h) 30 mg PO DAILY [facility] Stop: 08/11/25 08:59 Last Admin: 08/13/24 08:25 Dose: 30 mg Metoprolol Tartrate (Metoprolol Tartrate 100 Mg Tablet) 100 mg PO BID [facility] Stop: 08/11/25 08:59 Last Admin: 08/13/24 08:25 Dose: 100 mg Pantoprazole Sodium (Pantoprazole 40 Mg Tablet.Dr) 40 mg PO BID [facility] Stop: 08/11/25 08:59 Last Admin: 08/13/24 08:25 Dose: 40 mg Pregabalin (Pregabalin 75 Mg Capsule) 75 mg PO TID [facility] Stop: 02/07/25 08:59 Last Admin: 08/13/24 08:25 Dose: 75 mg Ropinirole HCl (Ropinirole 1 Mg Tablet) 1 mg PO TID [facility] Stop: 08/11/25 08:59 Last Admin: 08/13/24 08:25 Dose: 1 mg Tamsulosin HCl (Tamsulosin 0.4 Mg Cap.Er.24h) 0.4 mg PO BID [facility] Stop: 08/11/25 08:59 Last Admin: 08/13/24 08:25 Dose: 0.4 mg Tizanidine HCl (Tizanidine 4 Mg Tablet) 4 mg PO QHS [facility] Stop: 08/11/25 21:59 Last Admin: 08/12/24 21:48 Dose: 4 mg Allergies Penicillins Allergy (Unknown, Verified 08/11/24 04:06) Anaphylaxis latex Allergy (Verified 08/11/24 04:06) Unknown Reaction Results - Nephrology Labs 08/13/24 05:24 08/13/24 05:24 Labs: 08/12/24 08/13/24 05:01 05:24 BUN 13 Creatinine 1.59 H Albumin 3.5 3.4 L Radiology Impressions Impressions - last 24 hours: Any impression(s) listed above is documentation that was entered by the reading physician into a diagnostic report(s) for Myra Pickard SR. I have reviewed the report(s) and am incorporating any findings in the treatment plan of this patient where applicable. A&P - Nephrology Assessment/Plan (1) Acute kidney injury superimposed on CKD: Assessment/Problem Details: Patient has CKD stage IIIb from diabetic and hypertensive nephropathy. Baselinecreatinine fluctuate depending on the volume status and variation in blood pressure. Patient received IV contrast at admission for CTA of the head. Serumcreatinine at presentation 2.6 mg deciliter. Patient stated he has been making urine. (2) Hypomagnesemia: Assessment/Problem Details: Patient has been on PPI twice daily for GERD symptoms. He follows with Dr. Burleson in GI clinic. Magnesium level at presentation 0.5 mmol/L. Patient received 6 g of magnesium sulfate (3) Hypocalcemia: Assessment/Problem Details: This is likely from hypomagnesemia. Serum calcium level 6.1 on presentation. Patient received 1 g of calcium gluconate (4) Hypokalemia: Assessment/Problem Details: This is likely also from hypomagnesemia. Patient received 40 mill equivalent p.o. at admission and currently on IV KCl and normal saline (5) Iron deficiency: Assessment/Problem Details: Lab study revealed iron saturation only 7% with very low ferritin level. (6) Vitamin B12 deficiency: Assessment/Problem Details: Serum vitamin B12 level at admission 129. Patient currently on cyanocobalamin 10 mcg p.o. daily (7) BPH loc w urin obs/LUTS: Assessment/Problem Details: patient takes Flomax twice daily at home Plan * OK to resume home Jardiance, valsartan/hydrochlorothiazide * Continue to hold Lasix upon discharge * Continue calcium plus vitamin D 2 tablet p.o. 3 times daily for hypocalcemia. * Continue IV Ferrlecit 250 mg X4. It can be changed to oral iron upon discharge. * Continue vitamin B12 supplement * Check CBC renal function panel to 5 days after discharge. * Patient can be discharged from renal standpoint.Outpatient follow-up with Dr. 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) Procedures Vas art doppler lwr bilat mult lev/PVR Mike Montes MD [address], [address] [address] Referral ID Status Reason Start Date Expiration Date V isits Requested Visits Authorized [id number] Pending Review 10/18/2023 10/17/2024 1 1 Specialty Diagnoses / Procedures Referred By Brett mandujano Referred To Contact Radiology Diagnoses 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) Procedures CT angiogram abdominal aorta with runoff Mike Montes MD [address], [address] [address] Referral ID Status Reason Start Date Expiration Date V isits Requested Visits Authorized [id number] Pending Review 10/18/2023 10/17/2024 1 1 Referral ID Status Reason Start Date Expiration Date V isits Requested Visits Authorized [id number] Pending Review 10/18/2023 10/17/2024 1 1 Referral ID Status Reason Start Date Expiration Date V isits Requested Visits Authorized [id number] Pending Review 10/18/2023 10/17/2024 1 1 Specialty Diagnoses / Procedures Referred By Contac t Referred To Contact Cardiology Diagnoses Shortness of breath Procedures Transthoracic Echo Complete ME ECHO TTHRC R-T 2D W/WOM-MODE COMPL SPEC&COLR D Bernard De La Cruz MD [address] [place] [address], [address] [address] Referral ID Status Reason Start Date Expiration Date Visits Requested Visits Authorized [id number] Authorized Perform Procedure 01/01/2024 12/31/2024 1 1 Specialty Diagnoses / Procedures Referred By Contac t Referred To Contact Diagnoses Encounter for pre-operative cardiovascular clearance Procedures ECG 12 Lead Raulito Inman MD [address] [place] [address], [address] [address] Referral ID Status Reason Start Date Expiration Date V isits Requested Visits Authorized [id number] Authorized 10/24/2023 10/23/2024 1 1 Specialty Diagnoses / Procedures Referred By Contac t Referred To Contact Cardiology Diagnoses History of PTCA Procedures Follow Up In Cardiology Raulito Inman MD [address] [place] [address], [address] [address] Referral ID Status Reason Start Date Expiration Date V isits Requested Visits Authorized [id number] Authorized 10/24/2023 10/23/2024 1 1 Reason CANCELLED consult and treat; previous patient of Dr. Sharpe last seen in 2020; persisting intractable headaches Diagnosis 1 Acute intractable he adache, unspecified headache type (R51.9) Referral Organization [facility] Referring Provider First Name Teresa Referring Provider Last Name Rory Referring Provider Specialty Family Prac dale Referred Organization [facility] Referred Provider Lyssa Sharpe Referred Address [address],[place], [place],[address] Referred Provider Specialty Neurology Referral Priority Routine General Notes [facility] 023 10:19:08 AM >Received today. [facility] request us to fill out their form and attach to Referral and send it to them and they will call patient to schedule. Referral was sent P2P and fax insurance card since it would not let me attach to referral [facility] 07/28/2022 10:23:53 AM >Spoke with Marilynn at [facility] and patient has been scheduled and cancelled the appt for 07/26/22 [facility] 07/28/2022 10:27:39 AM >Telephone encounter was sent Reason 03/31/22 @ 2:45pm consult and treat Diagnosis 1 Type 2 diabetes bobby itus with circulatory disorder (E11.59) Referral Organization [facility] Referring Provider First Name Teresa Referring Provider Last Name Rory Referring Provider Specialty Family Prac dale Referred Organization [facility] Referred Provider Doris Barnes Referred Address [address],[facility] [[email or web address] [address],[place], [place],[address] Referred Provider Specialty Nurse Jono calderon Referral Priority Routine Referral Appointment Date 2022-03-31 General Notes [facility] 022 02:28:10 PM >Received today and sent P2P [facility] 02/16/2022 07:50:21 AM >Patient has [...] def anemia April 23, 2024 1:49pm Ref Lieallison R BKA definitive eval No vember 2023 10:58am Chief Complaint Admit Date RENAL F/U May 07, 2024 4 :21pm Gait Training/BKA July 23, 2024 3:47pm Reason for Visit Admit Date Anemia of renal disease May 07 4:21pm BMI 34.0-34.9,adult May 07, 2024 4 :21pm BPH loc w urin obs/LUTS May 07 4:21pm Chronic kidney disease, stage 3b Decembe r 2023 4:21pm 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 May 07, 2024 4:21pm Gout May 07, 2024 4 :21pm Hypertensive nephropathy May 07, 2 024 4:21pm Hypomagnesemia May 07, 2024 4 :21pm Chief Complaint Admit Date Gait Training/BKA July 23, 2024 3:47pm numbness on lt side August 11, 2024 5:39 am Reason for Visit Admit Date Acute kidney injury superimposed on CKD August 11, 2024 5:39am Diabetes August 11, 2024 5:39 am Hypocalcemia August 11, 2024 5:39 am Left sided numbness August 11, 2024 5:39 am Paresthesias August 11, 2024 5:39 am Hypertension August 11, 2024 5:39 am Chief Complaint Admit Date Gait Training/BKA July 23, 2024 3:47pm numbness on lt side August 11, 2024 5:39 am numbness on lt side August 11, 2024 2:05 pm Reason for Visit Admit Date Acute kidney injury superimposed on CKD August 11, 2024 5:39am BPH loc w urin obs/LUTS August 11, 2024 5:39am Diabetes August 11, 2024 5:39 am Hypocalcemia August 11, 2024 5:39 am Hypokalemia August 11, 2024 5:39 am Hypomagnesemia August 11, 2024 5:39 am Iron deficiency August 11, 2024 5:39 am Left sided numbness August 11, 2024 5:39 am Paresthesias August 11, 2024 5:39 am Vitamin B12 deficiency August 11, 2024 5 :39am Hypertension August 11, 2024 5:39 am Chief Complaint Admit Date Gait Training/BKA July 23, 2024 3:47pm numbness on lt side August 11, 2024 5:39 am numbness on lt side August 11, 2024 2:05 pm R/O CVA August 30, 2024 8:3 7am Reason for Visit Admit Date Hypocalcemia August 11, 2024 5:39 am Hypokalemia August 11, 2024 5:39 am Hypomagnesemia August 11, 2024 5:39 am Acute kidney injury superimposed on CKD August 11, 2024 5:39am BPH loc w urin obs/LUTS August 11, 2024 5:39am Diabetes August 11, 2024 5:39 am Hypertension August 11, 2024 5:39 am Iron deficiency August 11, 2024 5:39 am Left sided numbness August 11, 2024 5:39 am Paresthesias August 11, 2024 5:39 am Vitamin B12 deficiency August 11, 2024 5 :39am Anemia of renal disease August 30, 2024 8:37am Chronic kidney disease, stage 3b August 042024 8:37am 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 August 30, 2024 8:37am Hypocalcemia August 30, 2024 8:3 7am Hypokalemia August 30, 2024 8:3 7am Hypomagnesemia August 30, 2024 8:3 7am Neuropathy August 30, 2024 8:3 7am Non compliance w medication regimen Darrell 2024 8:37am Chief Complaint Admit Date Gait Training/BKA July 23, 2024 3:47pm numbness on lt side August 11, 2024 5:39 am numbness on lt side August 11, 2024 2:05 pm R/O CVA August 30, 2024 8:3 7am chest pain October 10, 2024 6:25pm Reason for Visit Admit Date Hypocalcemia August 11, 2024 5:39 am Hypokalemia August 11, 2024 5:39 am Hypomagnesemia August 11, 2024 5:39 am Acute kidney injury superimposed on CKD August 11, 2024 5:39am BPH loc w urin obs/LUTS August 11, 2024 5:39am Diabetes August 11, 2024 5:39 am Hypertension August 11, 2024 5:39 am Iron deficiency August 11, 2024 5:39 am Left sided numbness August 11, 2024 5:39 am Paresthesias August 11, 2024 5:39 am Vitamin B12 deficiency August 11, 2024 5 :39am Anemia of renal disease August 30, 2024 8:37am Chronic kidney disease, stage 3b August 042024 8:37am 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 August 30, 2024 8:37am Hypocalcemia August 30, 2024 8:3 7am Hypokalemia August 30, 2024 8:3 7am Hypomagnesemia August 30, 2024 8:3 7am Neuropathy August 30, 2024 8:3 7am Non compliance w medication regimen Darrell 2024 8:37am Chest pain October 10, 2024 6:25pm Chief Complaint Admit Date numbness on lt side August 11, 2024 5:39 am numbness on lt side August 11, 2024 2:05 pm R/O CVA August 30, 2024 8:3 7am chest pain October 10, 2024 6:25pm E83.42 E83.51 E87.6 G62.9 N18.9 D63.1 Ma y 2024 8:29am Reason for Visit Admit Date Hypocalcemia August 11, 2024 5:39 am Hypokalemia August 11, 2024 5:39 am Hypomagnesemia August 11, 2024 5:39 am Acute kidney injury superimposed on CKD August 11, 2024 5:39am BPH loc w urin obs/LUTS August 11, 2024 5:39am Diabetes August 11, 2024 5:39 am Hypertension August 11, 2024 5:39 am Iron deficiency August 11, 2024 5:39 am Left sided numbness August 11, 2024 5:39 am Paresthesias August 11, 2024 5:39 am Vitamin B12 deficiency August 11, 2024 5 :39am Anemia of renal disease August 30, 2024 8:37am Chronic kidney disease, stage 3b August 042024 8:37am 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 August 30, 2024 8:37am Hypocalcemia August 30, 2024 8:3 7am Hypokalemia August 30, 2024 8:3 7am Hypomagnesemia August 30, 2024 8:3 7am Neuropathy August 30, 2024 8:3 7am Non compliance w medication regimen [facility] 2024 8:37am CAD (coronary artery disease) October 10, 025 6:25pm Chronic kidney disease October 10, 2024 6:2 5pm Chronic obstructive pulmonary disease, u nspecified October 10, 2024 6:25pm 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 October 10, 2024 6:25pm Hyperlipidemia October 10, 2024 6:25pm Chest pain October 10, 2024 6:25pm Chief Complaint Admit Date numbness on lt side August 11, 2024 5:39 am numbness on lt side August 11, 2024 2:05 pm R/O CVA August 30, 2024 8:3 7am chest pain October 10, 2024 6:25pm E83.42 E83.51 E87.6 G62.9 N18.9 D63.1 Ma y 2024 8:29am 2 month f/u -labs November 05, 2024 1:08p m hospital f/u November 05, 2024 4:13p m Reason for Visit Admit Date Hypocalcemia August 11, 2024 5:39 am Hypokalemia August 11, 2024 5:39 am Hypomagnesemia August 11, 2024 5:39 am Iron deficiency August 11, 2024 5:39 am Vitamin B12 deficiency August 11, 2024 5 :39am Acute kidney injury superimposed on CKD August 11, 2024 5:39am BPH loc w urin obs/LUTS August 11, 2024 5:39am Diabetes August 11, 2024 5:39 am Hypertension August 11, 2024 5:39 am Left sided numbness August 11, 2024 5:39 am Paresthesias August 11, 2024 5:39 am Anemia of renal disease August 30, 2024 8:37am Chronic kidney disease, stage 3b August 042024 8:37am 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 August 30, 2024 8:37am Hypocalcemia August 30, 2024 8:3 7am Hypokalemia August 30, 2024 8:3 7am Hypomagnesemia August 30, 2024 8:3 7am Neuropathy August 30, 2024 8:3 7am Non compliance w medication regimen Darrell 2024 8:37am CAD (coronary artery disease) October 10, 025 6:25pm 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 October 10, 2024 6:25pm Chronic kidney disease October 10, 2024 6:2 5pm Chronic obstructive pulmonary disease, u nspecified October 10, 2024 6:25pm Hyperlipidemia October 10, 2024 6:25pm Chest pain October 10, 2024 6:25pm Anemia of renal disease November 05, 2024 1 :08pm CAD (coronary artery disease) November 05, 2024 1:08pm Cigarette nicotine dependence with nicot ine-induced disorder November 05, 2024 1:08pm 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 November 05, 2024 1:08pm 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 November 05, 2024 1:08pm Hypocalcemia November 05, 2024 1:08p m Vitamin D deficiency November 05, 2024 1:08 pm Anemia of renal disease November 05, 2024 4 :13pm BMI 34.0-34.9,adult November 05, 2024 4:13p m Chronic kidney disease, stage 3b November 4:13pm 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 November 05, 2024 4:13pm Gout November 05, 2024 4:13p m Hypertensive nephropathy November 05, 2024 4:13pm Hypomagnesemia November 05, 2024 4:13p m Iron deficiency November 05, 2024 4:13p m Vitamin D deficiency November 05, 2024 4:13 pm BPH loc w urin obs/LUTS November 05, 2024 4 :13pm Chief Complaint Admit Date numbness on lt side August 11, 2024 5:39 am numbness on lt side August 11, 2024 2:05 pm R/O CVA August 30, 2024 8:3 7am chest pain October 10, 2024 6:25pm E83.42 E83.51 E87.6 G62.9 N18.9 D63.1 Ma y 2024 8:29am 2 month f/u -labs November 05, 2024 1:08p m Reason for Visit Admit Date Hypocalcemia August 11, 2024 5:39 am Hypokalemia August 11, 2024 5:39 am Hypomagnesemia August 11, 2024 5:39 am Acute kidney injury superimposed on CKD August 11, 2024 5:39am BPH loc w urin obs/LUTS August 11, 2024 5:39am Diabetes August 11, 2024 5:39 am Hypertension August 11, 2024 5:39 am Iron deficiency August 11, 2024 5:39 am Left sided numbness August 11, 2024 5:39 am Paresthesias August 11, 2024 5:39 am Vitamin B12 deficiency August 11, 2024 5 :39am Anemia of renal disease August 30, 2024 8:37am Chronic kidney disease, stage 3b August 042024 8:37am 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 August 30, 2024 8:37am Hypocalcemia August 30, 2024 8:3 7am Hypokalemia August 30, 2024 8:3 7am Hypomagnesemia August 30, 2024 8:3 7am Neuropathy August 30, 2024 8:3 7am Non compliance w medication regimen Darrell rao 2024 8:37am CAD (coronary artery disease) October 10, 2 025 6:25pm 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 October 10, 2024 6:25pm Chronic kidney disease October 10, 2024 6:2 5pm Chronic obstructive pulmonary disease, u nspecified October 10, 2024 6:25pm Hyperlipidemia October 10, 2024 6:25pm Chest pain October 10, 2024 6:25pm Anemia of renal disease November 05, 2024 1 :08pm CAD (coronary artery disease) November 05, 2024 1:08pm Cigarette nicotine dependence with nicot ine-induced disorder November 05, 2024 1:08pm 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 November 05, 2024 1:08pm 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 November 05, 2024 1:08pm Hypocalcemia November 05, 2024 1:08p m Vitamin D deficiency November 05, 2024 1:08 pm Advance Directives No Advanced Directives Records Found [...] Follow-up 9 months POC lower a kristal Promedicmaría CYNTHIA Specialty Diagnoses / Procedures Referred By Brett mandujano Referred To Contact Diagnoses Encounter for pre-operative cardiovascular clearance Procedures ECG 12 Lead Raulito Inman MD [address] [facility] [address], [address] [address] Referral ID Status Reason Start Date Expiration Date V isits Requested Visits Authorized [id number] Authorized 10/24/2023 10/23/2024 1 1 Specialty Diagnoses / Procedures Referred By Contac t Referred To Contact Cardiology Diagnoses Shortness of breath Procedures Transthoracic Echo Complete ME ECHO TTHRC R-T 2D W/WOM-MODE COMPL SPEC&COLR D Bernard De La Cruz MD [address] [facility] 2, [facility] [address] [place] [address] Referral ID Status Reason Start Date Expiration Date Visits Requested Visits Authorized [id number] Authorized Perform Procedure 01/01/2024 12/31/2024 1 1 Reason Comments New Patient Poor Circulation - R eferral from Dr. Soto - No appt available in [place] until 11/02/2023; patient is having right leg and foot pain at a 10 right now since surgery 2 weeks ago Specialty Diagnoses / Procedures Referred By Contac t Referred To Contact Vascular Surgery Diagnoses Poor circulation Paula Soto, DPM [address] [place] [address] Merged With [facility] [address] [place] [id number] Referral ID Status Reason Start Date Expiration Date Visits Requested Visits Authorized [id number] Pending Review Specialty Services Required 10/13/2023 10/12/2024 1 1 Reason Comments Critical limb ischemia of ri ght lower extremity with gangre Follow up on testing completed in [facility] Check insession Reason Comments Angioplasty RLE follow up - procedure at [facility]. 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 AT [facility] Incision w ith toshia, well approximated Care Teams (unrecognized sec tion and content) Team Status: Active Member Role Status Dates Teresa Lynch DO Primary Care Provider Active Team Status: Inactive Member Role Status Dates Teresa Lynch DO Primary Care Provider Active Sta rt: July 23, 2024 End: July 23, 2024 Negro Hu MD Attending Provider Active Star t: July 23, 2024 End: July 23, 2024 Team Status: Active Member Role Status Dates Teresa Lynch DO Primary Care Provide r, Attending Provider Active Start: July 24, 2024 Team Status: Inactive Member Role Status Elda Lynch DO Primary Care Provider Active Sta rt: August 11, 2024 End: August 13, 2024 Francisco Duncan Jr, MD Emergency Provider Active Start: August 11, 2024 End: August 13, 2024 Marge Andino MD Admit Provider Active Start : August 11, 2024 End: August 13, 2024 Kevon Viera MD Attending Provider Active Start: August 11, 2024 End: August 13, 2024 Amina Fagan MD Other Provider Active Start: 2024 End: August 13, 2024 Team Status: Active Member Role Status Elda Lynch DO Primary Care Provider Active Sta rt: August 11, 2024 Francisco Duncan Jr, MD Emergency Provider Active Start: August 11, 2024 Marge Andino MD Admit Provider Active Start : August 11, 2024 Kevon Viera MD Other Provider Active Sta rt: August 11, 2024 Amina Fagan MD Attending Provider, Other Provider Active Start: August 11, 2024 Team Status: Inactive Member Role Status Elda Lynch DO Primary Care Provide r, Attending Provider Active Start: August 30, 2024 End: August 30, 2024 Team Status: Active Member Role Status Elda Lynch DO Primary Care Provider Active Sta rt: July 23, 2024 Negro Hu MD Attending Provider Active Star t: July 23, 2024 Team Status: Active Member Role Status Elda Lynch DO Primary Care Provider Active Sta rt: August 11, 2024 Francisco Duncan Jr, MD Emergency Provider Active Start: August 11, 2024 Marge Andino MD Admit Provider, Att ending Provider Active Start: August 11, 2024 Team Status: Inactive Member Role Status Elda Lynch DO Primary Care Provider Active Sta rt: May 07, 2024 End: May 07, 2024 Amina Fagan MD Attending Provider Active Star t: May 07, 2024 End: May 07, 2024 Team Status: Active Member Role Status [...] July 12, 2023 End: July 12, 2023 Abdullahi Wilson MD Emergency Provider Active St art: [...] Team Status: Active Member Role Status Elda Lynhc DO Primary Care Provider Active Sta rt: [...] Provider Active Sta rt: October 06, 2023 Integrated Marketing Manager Relationship Specialty Start Date End Date Teresa [...] April 24, 2024 End: April 24, 2024 Integrated Marketing Manager Relationship Specialty Start Date End Date Teresa Lynch DO PCP - General 04/17/19 Namita Mercer LPN [employer] 12/25/23 Integrated Marketing Manager Relationship Specialty Start Date End Date Teresa Lynch MD [address] [place] [phone] PCP - External PCP 03/05/23 Team Status: Active Member Role Status Dates Teresa Lynch DO Primary Care Provider Active Sta rt: October 10, 2024 Jez Dominguez PA-C Emergency Provider Active Start: October 10, 2024 Abdullahi Canchola DO Admit Provider, Atte nding Provider Active Start: October 10, 2024 Elle Monique RN Other Provider Active Star t: October 10, 2024 Danyell Schmidt DO Other Provider Active Start : October 10, 2024 Pascale Arnold MD Other Provider Active Start: October 10, 2024 Raulito Inman MD Other Provider Active Start: October 10, 2024 Bernard De La Cruz MD Other Provider Active St art: October 10, 2024 Cash Rosales MD Other Provider Active Start: October 10, 2024 Dolores Pickard APRN Other Provider Active Start : October 10, 2024 Jeanie Conde MD Other Provider Active Start: Sarika ay 2024 Andrew Montes MD Other Provider Active Start: October 10, 2024 Shaheed Barboza MD Other Provider Active Start: M ay 2024 Maryann Pierre , [facility]- Other Provider Active Sta rt: October 10, 2024 Team Status: Inactive Member Role Status Dates Teresa Lynch DO Primary Care Provider Active Sta rt: October 10, 2024 End: October 11, 2024 Jze Dominguez PA-C Emergency Provider Active Start: October 10, 2024 End: October 11, 2024 Abdullahi Canchola DO Admit Provider, Attending Provider Active Start: October 10, 2024 End: October 11, 2024 Team Status: Inactive Member Role Status Dates Teresa Lynch DO Primary Care Provide r, Attending Provider Active Start: October 26, 2024 End: October 26, 2024 Amina Fagan MD Other Provider Active Start: Sarika garcia 2024 End: October 26, 2024 Maurice Francis MD Other Provider Active Start: Sallie mancuso 2024 End: October 26, 2024 Team Status: Inactive Member Role Status Dates Teresa Lynch DO Primary Care Provide r, Attending Provider Active Start: November 05, 2024 End: November 05, 2024 Team Status: Inactive Member Role Status Dates Teresa Lynch DO Primary Care Provider Active Sta rt: November 05, 2024 End: November 05, 2024 Amina Fagan MD Attending Provider Active Star t: November 05, 2024 End: November 05, 2024 Goals (unrecognized section and content) Goals [...] and content) DATE CREATED AUTHOR 11/11/2022 [facility] DATE CREATED AUTHOR AUTHOR'S ORGANIZ ATION 01/27/2023 [facility] DATE CREATED AUTHOR AUTHOR'S ORGANIZ ATION 02/16/2023 [facility] DATE CREATED AUTHOR AUTHOR'S ORGANIZ ATION 02/16/2023 [facility] DATE CREATED AUTHOR AUTHOR'S ORGANIZ ATION 10/22/2023 [facility] DATE CREATED AUTHOR AUTHOR'S ORGANIZ ATION 11/16/2023 [facility] DATE CREATED AUTHOR AUTHOR'S ORGANIZ ATION 11/25/2023 [facility] DATE CREATED AUTHOR AUTHOR'S ORGANIZ ATION 01/10/2024 [facility] DATE CREATED AUTHOR AUTHOR'S ORGANIZ ATION 01/22/2024 [facility] DATE CREATED AUTHOR AUTHOR'S ORGANIZ ATION 02/13/2024 [facility] DATE CREATED AUTHOR AUTHOR'S ORGANIZ ATION 02/14/2024 [facility] DATE CREATED AUTHOR AUTHOR'S ORGANIZ ATION 02/15/2024 [facility] DATE CREATED AUTHOR AUTHOR'S ORGANIZ ATION 02/16/2024 [facility] DATE CREATED AUTHOR AUTHOR'S ORGANIZ ATION 02/17/2024 [facility] DATE CREATED AUTHOR AUTHOR'S ORGANIZ ATION 02/18/2024 [facility] DATE CREATED AUTHOR AUTHOR'S ORGANIZ ATION 02/19/2024 [facility] DATE CREATED AUTHOR AUTHOR'S ORGANIZ ATION 02/20/2024 [facility] DATE CREATED AUTHOR AUTHOR'S ORGANIZ ATION 02/21/2024 [facility] DATE CREATED AUTHOR AUTHOR'S ORGANIZ ATION 02/22/2024 [facility] DATE CREATED AUTHOR AUTHOR'S ORGANIZ ATION 02/23/2024 [facility] DATE CREATED AUTHOR AUTHOR'S ORGANIZ ATION 02/24/2024 [facility] DATE CREATED AUTHOR AUTHOR'S ORGANIZ ATION 03/14/2024 [facility] DATE CREATED AUTHOR AUTHOR'S ORGANIZ ATION 05/29/2024 [facility] DATE CREATED AUTHOR AUTHOR'S ORGANIZ ATION 09/29/2024 [facility] DATE CREATED AUTHOR AUTHOR'S ORGANIZ ATION 11/08/2024 [facility] DATE CREATED AUTHOR AUTHOR'S ORGANIZ ATION 11/22/2024 [facility] FOR RECORDS PERTAINING TO PATIENTS WHO ARE [...] BE BASED ON THE PRIMARY CLINICAL RECORDS. [facility] [facility]. provides no warranty or guarantee of the accuracy or completeness of information in this document.
--- NOTE | 2024-12-15 09:10 | XR_ITS ---
The [address] [address] Patient Name: MYRA FELIPE MRN: [id number] date: 1965 Sex: M Assigned Patient Location: ER Current Patient Location: ER Accession/Order Number: [id number] Exam Date: 12/15/2024 10:19 Report Date: 12/15/2024 10:20 At the request of: CLARICE CHARLTON MD Procedure: XR foot LT min 3V XR foot LT min 3V 12/15/2024 9:24 AM SIGNS AND SYMPTOMS: Laceration to left foot with swelling and redness along the dorsal aspect of the midfoot PROTOCOL: Frontal, lateral, and oblique radiographs of the left foot COMPARISON: 04/12/2024 FINDINGS: No fracture or dislocation. The joint spaces are preserved. There is soft tissue swelling over the dorsum of the metatarsals. No osteolytic or bony destructive process. Plantar and Achilles surface calcaneal spurring is noted. XR/XR foot LT min 3V IMPRESSION: No acute bony injury. Soft tissue swelling is noted along the dorsal surface of the metatarsals. Impression dictated by: Олег Oscar M.D. 12/15/2024 10:20 AM Dictation Location: [place] [address] Electronically authenticated by: [id number] Y Date: 12/15/2024 10:20
[2024-12-15 09:38] LABS: Hematocrit 50.1 % (42.0-54.0); Hemoglobin 16.9 g/dL (14.0-18.0); Immature Granulocytes Abs Auto 0.03 10^3/uL (0.00-0.03); Immature Granulocytes Pct Auto 0.3 % (0.0-0.5); Lymphocytes Absolute Auto 2.3 10^3/uL (1.2-3.8); Mean Corpuscular HGB Conc 33.7 g/dL (29.9-35.2); Mean Corpuscular Hemoglobin 28.7 pg (25.9-34.0); Mean Corpuscular Volume 85.1 fL (80.0-94.0); Platelet Count 140 10^3/uL (150-450); Red Blood Count 5.89 10^6/uL (4.70-6.10); White Blood Count 10.0 10^3/uL (4.0-11.0)
[2024-12-15 09:52] LABS: Alanine Aminotransferase 21 U/L (16-63); Albumin Globulin Ratio 0.9; Albumin Level 3.5 g/dL (3.4-5.0); Alkaline Phosphatase 152 U/L (46-116); Anion Gap 16.4; Aspartate Amino Transferase 16 U/L (15-37); Blood Urea Nitrogen 35.0 mg/dL (7.0-18.0); Calcium 9.4 mg/dL (8.5-10.1); Carbon Dioxide 27.3 mmol/L (21.0-32.0); Chloride 97 mmol/L (98-107); Estimated GFR (African America 29 (>=60 mL/min/1.73m^2); Estimated GFR (Non-African Ame 24 (>=60 mL/min/1.73m^2); Globulin 3.8 g/dL; Glucose 320 mg/dL (74-106); Potassium 3.7 mmol/L (3.5-5.1); Sodium 137 mmol/L (136-145); Total Protein 7.3 g/dL (6.4-8.2)
[2024-12-15 09:56] LABS: Lactate/Lactic Acid 2.9 mmol/L (0.4-2.0)
[2024-12-15] MEDS: CIPROFLOXACIN IN 5 % DEXTROSE 400 MG/200 ML PREMIX 200 MG IV (10:26)
--- NOTE | 2024-12-15 11:15 | ED.LOWEXI1 ---
HPI HPI - Extremity Injury (Lower) General Chief Complaint: Extremity Injury, Lower Stated Complaint: L FOOT SWOLLEN Time Seen by Provider: 12/15/24 09:09 Source: patient and family Mode of arrival: Wheelchair Limitations: no limitations History of Present Illness HPI Narrative: The patient have a history of diabetes as well as hypertension and right below the knee amputation, is coming to the ER with a left foot swelling and redness that developed overnight although the patient did had an injury last week with his scooter when he had an abrasion to the top of the foot, the patient is up-to-date with his tetanus booster as it is last given within the last 5 years Patient mentioned that overnight he developed redness tenderness and he also has been having some chills Related Data Home Medications ?Medication ?Instructions ?Recorded ?Confirmed empagliflozin 10 mg tablet 10 mg PO DAILY 03/03/23 12/15/24 (Jardiance) nitroglycerin 0.4 mg sublingual 0.4 mg sublingual Q5M PRN chest 03/03/23 12/15/24 tablet pain omeprazole 40 mg capsule,delayed 40 mg PO DAILY 03/03/23 12/15/24 release pregabalin 200 mg capsule 200 mg PO TID 03/03/23 12/15/24 albuterol sulfate 90 mcg/actuation 2 inh inhalation Q8H PRN shortness 12/09/23 12/15/24 aerosol inhaler (Proventil HFA) of breath or wheezing aspirin 81 mg tablet,delayed 81 mg PO DAILY 12/09/23 12/15/24 release atorvastatin 80 mg tablet 80 mg PO DAILY 12/09/23 12/15/24 clopidogrel 75 mg tablet 75 mg PO DAILY 12/09/23 12/15/24 dulaglutide 0.75 mg/0.5 mL 0.75 mg subcut QWEEK 12/09/23 12/15/24 subcutaneous pen injector (Trulicity) metoprolol tartrate 100 mg tablet 50 mg PO BID 12/09/23 12/15/24 sildenafil 100 mg tablet 100 mg PO Q24H PRN erectile 12/09/23 12/15/24 dysfunction tamsulosin 0.4 mg capsule 0.4 mg PO BID 12/09/23 12/15/24 amitriptyline 25 mg tablet 25 mg PO DAILY 12/10/23 12/15/24 budesonide-formoterol HFA 160 2 inh inhalation BID 12/10/23 12/15/24 mcg-4.5 mcg/actuation aerosol inhaler (Symbicort) furosemide 40 mg tablet (Lasix) 40 mg PO DAILY 12/10/23 12/15/24 glimepiride 2 mg tablet 2 mg PO BIDWM 12/10/23 12/15/24 ropinirole 1 mg tablet 0.5 mg PO TID 12/10/23 12/15/24 tiotropium bromide 2.5 2 puff inhalation DAILY 12/22/23 12/15/24 mcg/actuation mist for inhalation (Spiriva Respimat) metformin 1,000 mg tablet 1,000 mg PO BID 02/01/24 12/15/24 valsartan 160 1 tab PO DAILY 02/01/24 12/15/24 mg-hydrochlorothiazide 12.5 mg tablet allopurinol 100 mg tablet 100 mg PO DAILY 12/15/24 12/15/24 calcium 500 mg (as 1 tab PO DAILY 12/15/24 12/15/24 carbonate)-vitamin D3 10 mcg (400 unit) tablet (Calcium 500 With D) clonazepam 0.5 mg tablet 0.5 mg PO QAM 12/15/24 12/15/24 ferrous sulfate 325 mg (65 mg 325 mg PO BID 12/15/24 12/15/24 iron) tablet hydroxyzine HCl 25 mg tablet 25 mg PO .QHS 12/15/24 12/15/24 insulin glargine 100 unit/mL (3 See Protocol subcut 12/15/24 mL) subcutaneous pen (Lantus Solostar U-100 Insulin) magnesium oxide 400 mg (241.3 mg 400 mg PO DAILY 12/15/24 12/15/24 magnesium) tablet sitagliptin phosphate 100 mg 100 mg PO DAILY 12/15/24 12/15/24 tablet (Januvia) Allergies Allergy/AdvReac Type Severity Reaction Status Date / Time Penicillins Allergy Severe Swelling Verified 07/24/24 20:31 of Lip/Tongue/Throat bee venom protein (honey bee) Allergy Swelling Verified 07/24/24 20:31 of Lip/Tongue/Throat latex Allergy Rash Verified 07/24/24 20:31 Opioid HPI Opioid Management Most Recent Pain and Opioid Data: Last Pain Scale 10 02/19/25, 20:56 Last Pain Intensity 9 03/04/23, 10:36 Last ORT Total Score 0 12/30/23, 21:42 Last ORT Risk Category Low Risk 12/30/23, 21:42 Ur Phencyclidine Scrn, (NEGATIVE) Negative 03/03/23, 17:24 Review of Systems ROS Status of ROS 10 or more systems reviewed and unremarkable except as noted in history and below [facility] [place] [facility] History (Updated 12/15/24 @ 11:14 by Delfina Farah MD) Chest pain ?R07.9 - Chest pain, unspecified (ICD-10) Anemia ?D64.9 - Anemia, unspecified (ICD-10) Acute osteomyelitis of right foot ?M86.171 - Other acute osteomyelitis, right ankle and foot (ICD-10) CKD stage 3b, GFR 30-44 ml/min ?N18.32 - Chronic kidney disease, stage 3b (ICD-10) Chronic ulcer of right foot ?L97.519 - Non-pressure chronic ulcer of other part of right foot with unspecified severity (ICD-10) DM2 (diabetes mellitus, type 2) ?E11.9 - Type 2 diabetes mellitus without complications (ICD-10) Coronary artery disease ?I25.10 - Atherosclerotic heart disease of [place] coronary artery without angina pectoris (ICD-10) COPD (chronic obstructive pulmonary disease) ?J44.9 - Chronic obstructive pulmonary disease, unspecified (ICD-10) Hypertension ?I10 - Essential (primary) hypertension (ICD-10) Post-op bleeding Acute pain of right hip ?M25.551 - Pain in right hip (ICD-10) Foot osteomyelitis ?M86.9 - Osteomyelitis, unspecified (ICD-10) Ulcer of right foot with necrosis of bone ?L97.514 - Non-pressure chronic ulcer of other part of right foot with necrosis of bone (ICD-10) Hypocalcemia ?E83.51 - Hypocalcemia (ICD-10) Hypomagnesemia ?E83.42 - Hypomagnesemia (ICD-10) Sepsis ?A41.9 - Sepsis, unspecified organism (ICD-10) Wound of foot ?S91.309A - Unspecified open wound, unspecified foot, initial encounter (ICD-10) Abscess of right foot ?L02.611 - Cutaneous abscess of right foot (ICD-10) Anticoagulated ?Z79.01 - watch engineer (current) use of anticoagulants (ICD-10) Diabetic infection of right foot ?E11.628 - Type 2 diabetes mellitus with other skin complications (ICD-10) ?L08.9 - Local infection of the skin and subcutaneous tissue, unspecified (ICD-10) Puncture wound of right foot ?S91.331A - Puncture wound without foreign body, right foot, initial encounter (ICD-10) Cellulitis of foot, right ?L03.115 - Cellulitis of right lower limb (ICD-10) ROEL (acute kidney injury) ?N17.9 - Acute kidney failure, unspecified (ICD-10) Sepsis ?A41.9 - Sepsis, unspecified organism (ICD-10) CHF (congestive heart failure) ?I50.9 - Heart failure, unspecified (ICD-10) Migraine headache ?G43.909 - Migraine, unspecified, not intractable, without status migrainosus (ICD-10) Tobacco abuse ?Z72.0 - Tobacco use (ICD-10) Carpal tunnel syndrome ?G56.00 - Carpal tunnel syndrome, unspecified upper limb (ICD-10) Back pain ?M54.9 - Dorsalgia, unspecified (ICD-10) Arthritis ?M19.90 - Unspecified osteoarthritis, unspecified site (ICD-10) Restless leg ?G25.81 - Restless legs syndrome (ICD-10) GERD (gastroesophageal reflux disease) ?K21.9 - Gastro-esophageal reflux disease without esophagitis (ICD-10) High cholesterol ?E78.00 - Pure hypercholesterolemia, unspecified (ICD-10) Myocardial infarction ?I21.9 - Acute myocardial infarction, unspecified (ICD-10) BPH with obstruction/lower urinary tract symptoms ?N40.1 - Benign prostatic hyperplasia with lower urinary tract symptoms (ICD-10) ?N13.8 - Other obstructive and reflux uropathy (ICD-10) Dementia ?F03.90 - Unspecified dementia, unspecified severity, without behavioral disturbance, psychotic disturbance, mood disturbance, and anxiety (ICD-10) CKD stage 4 due to type 2 diabetes mellitus ?E11.22 - Type 2 diabetes mellitus with diabetic chronic kidney disease (ICD-10) ?N18.4 - Chronic kidney disease, stage 4 (severe) (ICD-10) Hyperlipidemia ?E78.5 - Hyperlipidemia, unspecified (ICD-10) Polyp of prostate with urinary obstruction ?N40.1 - Benign prostatic hyperplasia with lower urinary tract symptoms (ICD-10) ?N13.8 - Other obstructive and reflux uropathy (ICD-10) Femoral artery stenosis ?I70.209 - Unspecified atherosclerosis of [place] arteries of extremities, unspecified extremity (ICD-10) Glaucoma ?H40.9 - Unspecified glaucoma (ICD-10) Carpal tunnel syndrome, bilateral ?G56.03 - Carpal tunnel syndrome, bilateral upper limbs (ICD-10) Gout ?M10.9 - Gout, unspecified (ICD-10) Neuropathy ?G62.9 - Polyneuropathy, unspecified (ICD-10) Chronic kidney disease ?N18.9 - Chronic kidney disease, unspecified (ICD-10) Weakness ?R53.1 - Weakness (ICD-10) Surgical History H/O foot surgery (08/10/23) ?Z98.890 - Other specified postprocedural states (ICD-10) S/P TURP (04/13/23) ?Z90.79 - Acquired absence of other genital organ(s) (ICD-10) H/O foot surgery (08/05/23) ?Z98.890 - Other specified postprocedural states (ICD-10) History of heart artery stent ?Z95.5 - Presence of coronary angioplasty implant and graft (ICD-10) History of spinal surgery ?Z98.890 - Other specified postprocedural states (ICD-10) History of colonoscopy ?Z98.890 - Other specified postprocedural states (ICD-10) History of carpal tunnel release ?Z98.890 - Other specified postprocedural states (ICD-10) History of cataract extraction ?Z98.49 - Cataract extraction status, unspecified eye (ICD-10) History of appendectomy ?Z90.49 - Acquired absence of other specified parts of digestive tract (ICD-10) History of heart artery stent ?Z95.5 - Presence of coronary angioplasty implant and graft (ICD-10) Family History Mother Family history of CHF (congestive heart failure) Family history of diabetes mellitus Family history of hypertension Grandfather Family history of CHF (congestive heart failure) Family history of diabetes mellitus Family history of hypertension Family history of myocardial infarction Grandmother Family history of hypertension Social History Within the past year, how often did you have a drink containing alcohol: never Within the past year, how often did you have six or more drinks on one occasion: never Score interpretation: A score less than 4 is consistent with normal alcohol consumption. Smoking status: Current every day smoker What tobacco products do you use: cigarettes Cigarettes per day: 20 Years smoked: 42 Smoking pack-years: 42.00 Nicotine containing products detail: Approx 1 pack QOD Non-prescribed substance use: denies use Previous occupational history: DISABLED Known occupational exposures/hazards: No Highest level of school completed/degree received: high school graduate Are you now , , , , never or living with a partner: In a typical week, how many times do you talk on the telephone with family, friends, or neighbors: once per week How often do you get together with friends or relatives: once per week How often do you attend buddhist or worship services: never Do you belong to any clubs or organizations such as buddhist groups unions, fraternal or athletic groups, or school groups: no Total score: 1 Score interpretation: A score of less than or equal to 1 indicates the most socially isolated. Little interest or pleasure in doing things: not at all Feeling down, depressed, or hopeless: not at all Feel stressed/tense/nervous/anxious/difficulty sleeping: not at all Due to disability, difficulty making decisions: No Do you think of yourself as: straight/heterosexual Gender Identity: male Exam Narrative Exam Narrative: Nurses notes and vital signs reviewed and patient is not hypoxic. Lower extremity examination: Right below the knee amputation foot exam showed that the patient have a good pulse in the left anterior tibial but the patient have redness that is obvious covering the whole foot up to the ankle and toward the lateral malleolus There is an abrasion that is almost 0.5 cm healing and superficial No fluctuation no crepitus General: Well-appearing and in no apparent distress. Skin: Warm, dry, no pallor noted. No rash. Head: Normocephalic, atraumatic. Neck: Supple, non-tender. Eye: Pupils are equal, round and EOMI. No scleral icterus. Cardiovascular: Regular Rate and Rhythm without murmur, gallop or rub. Respiratory: No accessory muscle use or respiratory distress. Lungs are clear to auscultation, no wheezing, rales or rhonchi Chest Wall: no tenderness Back: No midline thoracic or lumbar vertebral tenderness. No CVA tenderness GI: Abdomen is soft, non-distended. Normal bowel sounds. No masses appreciated. No tenderness to palpation. No rebound, guarding, or rigidity noted. Neurological: A&O x4. No cranial nerve dysfunction observed. Constitutional Vital Signs, click to edit/add: Last Vital Signs Temp 98.2 F 12/15/24 09:02 Pulse 76 12/15/24 09:02 Resp 22 H 12/15/24 09:02 BP 133/75 12/15/24 09:02 Pulse Ox 99 12/15/24 09:02 O2 Del Method Room Air 12/15/24 09:02 Course Vital Signs Vital signs: Vital Signs Temperature 98.2 F 12/15/24 09:02 Pulse Rate 76 12/15/24 09:02 Respiratory Rate 22 H 12/15/24 09:02 Blood Pressure 133/75 12/15/24 09:02 Pulse Oximetry 99 12/15/24 09:02 Oxygen Delivery Method Room Air 12/15/24 09:02 Temperature 98.2 F 12/15/24 09:02 Pulse Rate 76 12/15/24 09:02 Respiratory Rate 22 H 12/15/24 09:02 Blood Pressure 133/75 12/15/24 09:02 Pulse Oximetry 99 12/15/24 09:02 Oxygen Delivery Method Room Air 12/15/24 09:02 MDM - Extremity Injury (Lower) MDM Narrative Medical decision making narrative: The patient upon arrival had a blood workup showing no leukocytosis but he has acute on top of chronic kidney disease with. Creatinine of 2.2 and now it is 2.7 The patient also had elevated lactic above 2 The clinical exam is obvious for cellulitis and the patient x-ray shows soft tissue swelling as well Patient had a blood culture obtained and he was started on doxycycline and Cipro initially The patient have penicillin allergy The patient case discussed with Dr. Elias who is the air traffic control operator taking care of the patient and the patient will be admitted for IV antibiotic and cellulitis management Patient case was discussed with and he agreed to admit the patient for further evaluation management Lab Data Labs: Lab Results 12/15/24 Range/Units 09:29 WBC 10.0 (4.0-11.0) 10^3/uL RBC 5.89 (4.70-6.10) 10^6/uL Hgb 16.9 (14.0-18.0) g/dL Hct 50.1 (42.0-54.0) % MCV 85.1 (80.0-94.0) fL MCH 28.7 (25.9-34.0) pg MCHC 33.7 (29.9-35.2) g/dL RDW 18.7 H (11.0-15.0) % Plt Count 140 L (150-450) 10^3/uL MPV 11.2 (9.5-13.5) fL Neut % (Auto) 63.2 (43.0-75.0) % Lymph % (Auto) 22.4 (20.5-60.0) % [place] % (Auto) 9.3 (1.7-12.0) % Eos % (Auto) 3.7 (0.9-7.0) % Baso % (Auto) 1.1 (0.2-2.0) % Neut # (Auto) 6.4 (1.4-6.5) 10^3/uL Lymph # (Auto) 2.3 (1.2-3.8) 10^3/uL [place]igs # (Auto) 0.9 H (0.3-0.8) 10^3/uL Eos # (Auto) 0.4 (0.0-0.7) 10^3/uL Baso # (Auto) 0.1 (0.0-0.1) 10^3/uL Abs Immat Gran (auto) 0.03 (0.00-0.03) 10^3/uL Imm/Tot Granulo (auto) 0.3 (0.0-0.5) % ESR 34 H (<=20) mm/hr Sodium 137 (136-145) mmol/L Potassium 3.7 (3.5-5.1) mmol/L Chloride 97 L (98-107) mmol/L Carbon Dioxide 27.3 (21.0-32.0) mmol/L Anion Gap 16.4 BUN 35.0 H (7.0-18.0) mg/dL Creatinine 2.75 H (0.70-1.30) mg/dL Est GFR ( Amer) 29 L (>=60 mL/min/1.73m^2) Est GFR (Non-Af Amer) 24 L (>=60 mL/min/1.73m^2) BUN/Creatinine Ratio 12.7 Glucose 320 H (74-106) mg/dL Lactate 2.9 H* (0.4-2.0) mmol/L Calcium 9.4 (8.5-10.1) mg/dL Total Bilirubin 0.5 (0.2-1.0) mg/dL AST 16 (15-37) U/L ALT 21 (16-63) U/L Alkaline Phosphatase 152 H (46-116) U/L C-Reactive Protein 0.57 H (<=0.50) mg/dL Total Protein 7.3 (6.4-8.2) g/dL Albumin 3.5 (3.4-5.0) g/dL Globulin 3.8 g/dL Albumin/Globulin Ratio 0.9 Discharge Plan Discharge Chief Complaint: Extremity Injury, Lower Clinical Impression: Cellulitis, Sepsis Patient Disposition: Admitted As Inpatient Time of Disposition Decision: 11:14
[2024-12-15] MEDS: DOXYCYCLINE HYCLATE 100 MG in 0.9 % SODIUM CHLORIDE 100 ML IV (11:29)
--- NOTE | 2024-12-15 11:32 | PC.NURSE ---
pt requesting pain medication at this time, informed Dr Farah
[2024-12-15] MEDS: OXYCODONE HCL/ACETAMINOPHEN 5MG/325MG 1 TAB PO (12:03)
--- NOTE | 2024-12-15 12:08 | PM.HP ---
HPI H&P: HPI History of Present Illness Chief complaint: L FOOT SWOLLEN Narrative: Mr. Feldman is a 59-year-old gentleman with a history of diabetes and peripheral vascular disease. Patient came in with worsening pain, swelling and tenderness involving the left foot. He was found to have sepsis and left foot infection. The patient will be admitted for further investigation and IV antibiotic as listed below in the assessment and plan section. No chest pain. No abdominal negative. No nausea or vomiting. Opioid HPI Opioid Management Most Recent Pain and Opioid Data: Last Pain Scale 10 07/24/24, 20:56 Last Pain Intensity 9 03/04/23, 10:36 Last ORT Total Score 0 12/30/23, 21:42 Last ORT Risk Category Low Risk 12/30/23, 21:42 Ur Phencyclidine Scrn, (NEGATIVE) Negative 03/03/23, 17:24 [facility] Medical History (Updated 12/15/24 @ 12:09 by Remberto Ervin MD) Chest pain ?R07.9 - Chest pain, unspecified (ICD-10) Acute osteomyelitis of right foot ?M86.171 - Other acute osteomyelitis, right ankle and foot (ICD-10) Chronic ulcer of right foot ?L97.519 - Non-pressure chronic ulcer of other part of right foot with unspecified severity (ICD-10) Coronary artery disease ?I25.10 - Atherosclerotic heart disease of kaw coronary artery without angina pectoris (ICD-10) COPD (chronic obstructive pulmonary disease) ?J44.9 - Chronic obstructive pulmonary disease, unspecified (ICD-10) Hypertension ?I10 - Essential (primary) hypertension (ICD-10) Post-op bleeding Acute pain of right hip ?M25.551 - Pain in right hip (ICD-10) Foot osteomyelitis ?M86.9 - Osteomyelitis, unspecified (ICD-10) Ulcer of right foot with necrosis of bone ?L97.514 - Non-pressure chronic ulcer of other part of right foot with necrosis of bone (ICD-10) Hypocalcemia ?E83.51 - Hypocalcemia (ICD-10) Hypomagnesemia ?E83.42 - Hypomagnesemia (ICD-10) Sepsis ?A41.9 - Sepsis, unspecified organism (ICD-10) Wound of foot ?S91.309A - Unspecified open wound, unspecified foot, initial encounter (ICD-10) Abscess of right foot ?L02.611 - Cutaneous abscess of right foot (ICD-10) Anticoagulated ?Z79.01 - intermediate (current) use of anticoagulants (ICD-10) Diabetic infection of right foot ?E11.628 - Type 2 diabetes mellitus with other skin complications (ICD-10) ?L08.9 - Local infection of the skin and subcutaneous tissue, unspecified (ICD-10) Puncture wound of right foot ?S91.331A - Puncture wound without foreign body, right foot, initial encounter (ICD-10) Cellulitis of foot, right ?L03.115 - Cellulitis of right lower limb (ICD-10) Sepsis ?A41.9 - Sepsis, unspecified organism (ICD-10) CHF (congestive heart failure) ?I50.9 - Heart failure, unspecified (ICD-10) Migraine headache ?G43.909 - Migraine, unspecified, not intractable, without status migrainosus (ICD-10) Carpal tunnel syndrome ?G56.00 - Carpal tunnel syndrome, unspecified upper limb (ICD-10) Back pain ?M54.9 - Dorsalgia, unspecified (ICD-10) Arthritis ?M19.90 - Unspecified osteoarthritis, unspecified site (ICD-10) Restless leg ?G25.81 - Restless legs syndrome (ICD-10) GERD (gastroesophageal reflux disease) ?K21.9 - Gastro-esophageal reflux disease without esophagitis (ICD-10) High cholesterol ?E78.00 - Pure hypercholesterolemia, unspecified (ICD-10) Myocardial infarction ?I21.9 - Acute myocardial infarction, unspecified (ICD-10) Dementia ?F03.90 - Unspecified dementia, unspecified severity, without behavioral disturbance, psychotic disturbance, mood disturbance, and anxiety (ICD-10) CKD stage 4 due to type 2 diabetes mellitus ?E11.22 - Type 2 diabetes mellitus with diabetic chronic kidney disease (ICD-10) ?N18.4 - Chronic kidney disease, stage 4 (severe) (ICD-10) Hyperlipidemia ?E78.5 - Hyperlipidemia, unspecified (ICD-10) Polyp of prostate with urinary obstruction ?N40.1 - Benign prostatic hyperplasia with lower urinary tract symptoms (ICD-10) ?N13.8 - Other obstructive and reflux uropathy (ICD-10) Femoral artery stenosis ?I70.209 - Unspecified atherosclerosis of kaw arteries of extremities, unspecified extremity (ICD-10) Glaucoma ?H40.9 - Unspecified glaucoma (ICD-10) Carpal tunnel syndrome, bilateral ?G56.03 - Carpal tunnel syndrome, bilateral upper limbs (ICD-10) Gout ?M10.9 - Gout, unspecified (ICD-10) Chronic kidney disease ?N18.9 - Chronic kidney disease, unspecified (ICD-10) Weakness ?R53.1 - Weakness (ICD-10) Surgical History H/O foot surgery (08/10/23) ?Z98.890 - Other specified postprocedural states (ICD-10) S/P TURP (04/13/23) ?Z90.79 - Acquired absence of other genital organ(s) (ICD-10) H/O foot surgery (08/05/23) ?Z98.890 - Other specified postprocedural states (ICD-10) History of heart artery stent ?Z95.5 - Presence of coronary angioplasty implant and graft (ICD-10) History of spinal surgery ?Z98.890 - Other specified postprocedural states (ICD-10) History of colonoscopy ?Z98.890 - Other specified postprocedural states (ICD-10) History of carpal tunnel release ?Z98.890 - Other specified postprocedural states (ICD-10) History of cataract extraction ?Z98.49 - Cataract extraction status, unspecified eye (ICD-10) History of appendectomy ?Z90.49 - Acquired absence of other specified parts of digestive tract (ICD-10) History of heart artery stent ?Z95.5 - Presence of coronary angioplasty implant and graft (ICD-10) Family History Mother Family history of CHF (congestive heart failure) Family history of diabetes mellitus Family history of hypertension Grandfather Family history of CHF (congestive heart failure) Family history of diabetes mellitus Family history of hypertension Family history of myocardial infarction Grandmother Family history of hypertension Social History Within the past year, how often did you have a drink containing alcohol: never Within the past year, how often did you have six or more drinks on one occasion: never Score interpretation: A score less than 4 is consistent with normal alcohol consumption. Smoking status: Current every day smoker What tobacco products do you use: cigarettes Cigarettes per day: 20 Years smoked: 42 Smoking pack-years: 42.00 Nicotine containing products detail: Approx 1 pack QOD Non-prescribed substance use: denies use Previous occupational history: DISABLED Known occupational exposures/hazards: No Highest level of school completed/degree received: high school graduate Are you now , , , , never or living with a partner: In a typical week, how many times do you talk on the telephone with family, friends, or neighbors: once per week How often do you get together with friends or relatives: once per week How often do you attend judaism or samaritan services: never Do you belong to any clubs or organizations such as judaism groups unions, [employer] or athletic groups, or school groups: no Total score: 1 Score interpretation: A score of less than or equal to 1 indicates the most socially isolated. Little interest or pleasure in doing things: not at all Feeling down, depressed, or hopeless: not at all Feel stressed/tense/nervous/anxious/difficulty sleeping: not at all Due to disability, difficulty making decisions: No Do you think of yourself as: straight/heterosexual Gender Identity: male Meds Home Medications and Allergies Home Medications ?Medication ?Instructions ?Recorded ?Confirmed ?Type empagliflozin 10 mg tablet 10 mg PO DAILY 03/03/23 12/15/24 History (Jardiance) nitroglycerin 0.4 mg sublingual 0.4 mg sublingual Q5M PRN chest 03/03/23 12/15/24 History tablet pain omeprazole 40 mg capsule,delayed 40 mg PO DAILY 03/03/23 12/15/24 History release pregabalin 200 mg capsule 200 mg PO TID 03/03/23 12/15/24 History albuterol sulfate 90 mcg/actuation 2 inh inhalation Q8H PRN shortness 12/09/23 12/15/24 History aerosol inhaler (Proventil HFA) of breath or wheezing aspirin 81 mg tablet,delayed 81 mg PO DAILY 12/09/23 12/15/24 History release atorvastatin 80 mg tablet 80 mg PO DAILY 12/09/23 12/15/24 History clopidogrel 75 mg tablet 75 mg PO DAILY 12/09/23 12/15/24 History dulaglutide 0.75 mg/0.5 mL 0.75 mg subcut QWEEK 12/09/23 12/15/24 History subcutaneous pen injector (Trulicity) metoprolol tartrate 100 mg tablet 50 mg PO BID 12/09/23 12/15/24 History sildenafil 100 mg tablet 100 mg PO Q24H PRN erectile 12/09/23 12/15/24 History dysfunction tamsulosin 0.4 mg capsule 0.4 mg PO BID 12/09/23 12/15/24 History amitriptyline 25 mg tablet 25 mg PO DAILY 12/10/23 12/15/24 History budesonide-formoterol HFA 160 2 inh inhalation BID 12/10/23 12/15/24 History mcg-4.5 mcg/actuation aerosol inhaler (Symbicort) furosemide 40 mg tablet (Lasix) 40 mg PO DAILY 12/10/23 12/15/24 History glimepiride 2 mg tablet 2 mg PO BIDWM 12/10/23 12/15/24 History ropinirole 1 mg tablet 0.5 mg PO TID 12/10/23 12/15/24 History tiotropium bromide 2.5 2 puff inhalation DAILY 12/22/23 12/15/24 History mcg/actuation mist for inhalation (Spiriva Respimat) metformin 1,000 mg tablet 1,000 mg PO BID 02/01/24 12/15/24 History valsartan 160 1 tab PO DAILY 02/01/24 12/15/24 History mg-hydrochlorothiazide 12.5 mg tablet allopurinol 100 mg tablet 100 mg PO DAILY 12/15/24 12/15/24 History calcium 500 mg (as 1 tab PO DAILY 12/15/24 12/15/24 History carbonate)-vitamin D3 10 mcg (400 unit) tablet (Calcium 500 With D) clonazepam 0.5 mg tablet 0.5 mg PO QAM 12/15/24 12/15/24 History ferrous sulfate 325 mg (65 mg 325 mg PO BID 12/15/24 12/15/24 History iron) tablet hydroxyzine HCl 25 mg tablet 25 mg PO .QHS 12/15/24 12/15/24 History insulin glargine 100 unit/mL (3 See Protocol subcut 12/15/24 History mL) subcutaneous pen (Lantus Solostar U-100 Insulin) magnesium oxide 400 mg (241.3 mg 400 mg PO DAILY 12/15/24 12/15/24 History magnesium) tablet sitagliptin phosphate 100 mg 100 mg PO DAILY 12/15/24 12/15/24 History tablet (Januvia) Allergies Allergy/AdvReac Type Severity Reaction Status Date / Time Penicillins Allergy Severe Swelling Verified 07/24/24 20:31 of Lip/Tongue/Throat bee venom protein (honey bee) Allergy Swelling Verified 07/24/24 20:31 of Lip/Tongue/Throat latex Allergy Rash Verified 07/24/24 20:31 Exam Narrative Exam Narrative: [pt is awake and alert. oriented to place, time and person HEENT: Pale conjunctiva and NL buccal mucosa Neck: Supple, no tenderness Endocrine: No Thyromegaly. Vascular: No JVD or carotid bruit. Lymphatic: No cervical lymphadenopathy. Chest: CTA no DTP. Heart RRR, no extra sound or murmur. Abd: Soft, no tenderness, no rebound and no rigidity. Increase abd girth therefore clinically I could not exclude the possibility of intra abd mass or organomegaly. LE: Right below-knee amputation. Left foot is significantly erythematous, swollen near the ankle and proximal metatarsal area. Faint dorsalis pedis pulse. Neuro: A A O. Nl speech, comprehension and attention. Nl and symetrical motor and tone examination through out. []] Constitutional Vital Signs, click to edit/add: Last Vital Signs Temp 98.2 F 12/15/24 09:02 Pulse 76 12/15/24 09:02 Resp 22 H 12/15/24 09:02 BP 133/75 12/15/24 09:02 Pulse Ox 99 12/15/24 09:02 O2 Del Method Room Air 12/15/24 09:02 Results Labs Labs: Short CBC 12/15/24 Range/Units 09:29 WBC 10.0 (4.0-11.0) 10^3/uL Hgb 16.9 (14.0-18.0) g/dL Hct 50.1 (42.0-54.0) % Plt Count 140 L (150-450) 10^3/uL BMP 12/15/24 09:29 Sodium 137 Potassium 3.7 Chloride 97 L Carbon Dioxide 27.3 BUN 35.0 H Creatinine 2.75 H Glucose 320 H Calcium 9.4 Liver Function 12/15/24 Range/Units 09:29 Total Bilirubin 0.5 (0.2-1.0) mg/dL AST 16 (15-37) U/L ALT 21 (16-63) U/L Alkaline Phosphatase 152 H (46-116) U/L Albumin 3.5 (3.4-5.0) g/dL Assessment and Plan Assessment and Plan (1) Sepsis: (2) Cellulitis: (3) Peripheral vascular disease: Plan Sepsis present on admission secondary to right foot infection, probable abscess formation Sepsis protocol was followed including IV fluid infusion and cultures. Initiation of the appropriate antibiotic to cover MRSA, gram-negative, probable pseudomonas MRI to take a better look at the foot and see the extent of the infection, rule out abscess, rule out osteomyelitis. Podiatry consultation for the possible need of incision and drainage. MICHELLE index to exclude significant vascular disease Peripheral vascular disease. Status post stenting of the iliac arteries Pain dorsalis pedis pulse. Requested MICHELLE index. Patient may need vascular evaluation before any podiatry intervention Tobacco addiction, 1 pack/day. Counseling and patient to quit smoking. NicoDerm patch Diabetes. Started patient on Accu-Chek with sliding scale coverage. Check A1c. Current artery disease. Previous coronary artery stenting. No active chest pain or angina. Check EKG CKD stage III borderline stage IV. Acute kidney failure, likely secondary to above Avoid nephrotoxic drugs Hold ARB. Gentle IV fluid infusion. Right below-knee amputation Hypertension Depression Chronic medical conditions not listed above, incidental findings seen on labs and imaging. These would need to be addressed. Could be addressed when time and condition are appropriate. Could be addressed in the outpatient setting by PCP collaboration with other needed outpatient providers.
--- NOTE | 2024-12-15 12:13 | ECG_ITS ---
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
[2024-12-15 12:24] VITALS: BP 127/80; PULSE 68; TEMP 36.4; O2SAT 98; BMI 27.7
--- OUTSIDE RECORDS SUMMARY | 2024-12-15 12:25 | XMS_ITS | CCD ---
Author Organization [facility] CliniSyma Care Team Providers Care Body Component Engineer Name Role Phone Teresa Lynch Unavailable Unavailable Unavailable Teresa Lynch Unavailable Amina Fagan Unavailable AbhinaziaEmilyn Unavailable Cameron Akin Unavailable DO Teresa Lynch Primary Care Provider JERARDO Mclaughlin Attending Provider [phone] DO Teresa Lynch Attending Provider SAMSA ., [...] Care Provider MD Abdullahi Wilson Emergency Provider DO Teresa Lynch Primary Care Provider MD Abdullahi Wilson Emergency Provider JERARDO Mclaughlin Attending Provider JERARDO Mclaughlin Referring Provider [phone] LINDSEY Soto Attending Provider DO Teresa Lynch Primary Care Provider [phone] Teresa Lynch DO Primary Care Provider SIMONALBERT [...] Mike Weathers Referring Unavailable Simon, MD Mike Rodrigeuz. Admitting Unavailable Simon, MD Mike Weathers Attending [...] Admit Provider MD João Powell Attending Provider [phone] MD Kait Dan Emergency Provider [phone] DO Teresa Lynch Primary Care Provider MD João Powell Admit Provider MD João Powell Attending Provider MD Lyssa Sharpe Other Provider [phone] MD Mike Burleson Other Provider SIMON, MOHAMED F Attending Unavailable SIMON, ALBERTAMED F Attending Unavailable LINDSEY Soto Attending Provider MD Kait Dan Emergency Provider DO Teresa Lynch Primary Care Provider [phone] MD João Powell Admit Provider MD João Powell Attending Provider MD Lyssa Sharpe Other Provider MD Mike Burleson Other Provider DO Scottie Bonilla Emergency Provider DO Luther Dozier Other Provider MD Job James Other Provider [phone] MD Remberto Ervin Attending Provider [phone] DO Scottie Bonilla Emergency Provider [phone] DO Luther Dozier Other Provider MD Job James Other Provider MD Remberto Ervin Attending Provider Kait Dan MD Emergency Provider Teresa Lynch DO Primary Care Provider João Powell MD Admit Provider João Powell MD Attending Provider [phone] Lyssa Sharpe MD Other Provider [phone] Mike Burleson MD Other Provider Scottie BRICENO, [facility] Emergency Provider [phone] Luther Dozier DO Other Provider Jacob HERRERA, Job Other Provider Remberto Evrin MD Attending Provider Mike Burleson MD Attending Provider [phone] Marybel Sanchez Unavailable Unavailable Teresa Lynch DO Primary Care Provider [phone] Namita Mercer LPN. Unavailable Unava ilable Teresa [...] Emergency Provider Abdullahi Canchola DO Admit Provider [phone] Abdullahi Canchola DO Attending Provider [phone] Elle Monique RN Other Provider Unavailable Danyell Schmidt DO Other Provider Yaniv HERRERA, Pascale Other Provider [phone] Raulito Inman MD Other Provider Lori HERRERA, Bernard Other Provider Connie HERRERA, Cash Other Provider Dolores Pickard APRN Other Provider Elton HERRERA, Jeanie Other Provider Simon HERRERA, Andrew Elise Other Provider Shaheed Barboza MD Other Provider Gabby [facility], Maryann Hopkins Other Provider Teresa Lynch DO Primary Care Provider [phone] Teresa Lynch DO Attending Provider Maurice Francis [...] Unavailable Rory BRICENO Teresa Primary Care Provider Francisco Duncan MD Emergency Provider [phone] Marge Andino MD Admit Provider Kevon Viera MD Attending Provider [phone] Amina Fagan MD Other Provider Jez Dominguez PA-C Emergency Provider Abdullahi Canchola DO Admit Provider Abdullahi Canchola DO Attending Provider [phone] Teresa Lynch DO Attending Provider Maurice Francis MD Other Provider BERNARD DE LA CRUZ Attending Unavailable TERESA LYNCH Primary Care Unavailable Allergies Allergy Classification Reported Allergen(s) Allergy Type Date of Onset Reaction(s) Facility (20 sources) natural latex rubber; Translations: [LATEX] Allergy to substance (finding) 03-27-20 23 Itching (finding), Eruption of skin (disorder) [facility] (20 sources) Penicillins; Translations: [Penicillins] Allergy to drug (finding) 11-05-19 14 Anaphylactoid reaction (disorder) [facility] (20 sources) Acetaminophen / oxyCODONE Drug Allergy 03-14-20 17 vomiting [facility] Other (20 sources) tamsulosin; Translations: [TAMSULOSIN] Drug Allergy 07-14-19 21 [facility] (20 sources) PENICIILIN Propensity to adverse reactions SWELLING OF AIRWAY [facility] Other (20 sources) Acetaminophen; Translations: [ACETAMINOPHEN] Drug Allergy 07-14-19 21 [facility] (20 sources) oxyCODONE; Translations: [Oxycodone] Drug Allergy 02-08-20 17 [facility] (1 source) Penicillins Drug allergy (disorder) 09-23-19 14 [facility] (20 sources) Penicillin G; Translations: [penicillin G benzathine] Drug Allergy [facility] (11 sources) Penicillin; Translations: [Penicillin] Drug Allergy anaphylaxis, Anaphylactoid reaction (disorder) [facility] (20 sources) Latex Allergy to substance 03-27-20 23 Unknown, Dermatitis, Itching, Rash [facility] (20 sources) Penicillins Drug Allergy 11-05-19 14 Anaphylaxis, [facility] (18 sources) Isosorbide; Translations: [ISOSORBIDE MONONITRATE] Drug Allergy 08-05-19 15 Other (See Comments) [facility] (1 source) Acetaminophen / oxyCODONE Drug Allergy 03-14-20 17 [facility] (5 sources) Isosorbide Dinitrate Drug Allergy 08-05-19 15 Other, Other (See Comments) [facility] (1 source) Latex Propensity to adverse reactions 03-27-20 23 Dermatitis, Itching, Rash, Unknown [facility] (1 source) Penicillins Drug Intolerance 11-05-19 14 Anaphylaxis, Hives [facility] (5 sources) Propoxyphene Drug Allergy 03-14-20 17 [facility] (1 source) Latex Drug allergy (disorder) 11-06-19 [facility] (1 source) Penicillins Drug allergy (disorder) 11-06-19 [facility] (1 source) tamsulosin Drug Allergy 07-31-19 [facility] Medications [...] 1:00am July 14, 2020 12:39pm Start: 10-10-2014 [place] 325 mg-5 mg oral tablet 1 tab(s), Oral, q4hr for pain, 12 tab(s), Refill(s) 0 Start Date: 10/10/14 Status: Ordered [id number] 200 actuat albuterol 0.09 mg/actuat metered dose [...] Date: 10/31/13 Status: Ordered Flash Glucose Scanning [place] (Freestyle Jigar 2 [place]) misc (12 sources) Start: 12-28-2023 Flash Glucose Scanning [place] (Freestyle Jigar 2 [place]) misc Active 0 .Route December 27, 2023 11:00pm As directed Start: 12-28-2023 Flash Glucose Scanning [place] (Freestyle Jigar 2 [place]) misc Active 0 .Route December 28, 2023 12:00am As directed Start: 12-28-2023 Flash Glucose Scanning [place] (Freestyle Jigar 2 [place]) misc Active 0 .ROUTE December 28, 2023 [...] hr tablet Indications: 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 60 tablet 11/08/2023 12/08/2023 Active sennosides, [facility] 8.6 mg oral tablet (3 sources) Start: [...] Completed Start: 06-26-2023 take 1 capsule by [facility] once daily tamsulosin (FLOMAX) 0.4 mg capsule Take 1 capsule (0.4 mg total) by mouth nightly. 06/26/2023 Active Start: 02-14-2023 End: 03-06-2024 take 1 capsule by mo [facility] once daily Tamsulosin HCl - [...] Refills: 0 Ordered: 26-Oct-2021 DO Active Tiotropium [place] (Spiriva With Handihaler) 18 mcg capsule, w/inhalation device (20 sources) Start: 03-03-2024 take 1 capsule by inhalation once daily Tiotropium [place] (Spiriva With Handihaler) 18 mcg capsule, w/inhalation device Active 1 CAP INHALATION Daily March 02, 2024 11:00pm puncture 1 cap using device; one dose = 2 inhalations Start: 03-03-2024 take 1 capsule by in halation once daily Tiotropium [place] (Spiriva With Handihaler) 18 mcg capsule, w/inhalation device Active 1 CAP INHALATION Daily March 03, 2024 12:00am puncture 1 cap using device; one dose = 2 inhalations Start: 07-12-2023 End: 03-03-2024 take 1 capsule by inhalation once daily Tiotropium [place] (Spiriva With Handihaler) 18 mcg capsule, w/inhalation device Discontinued 1 CAP INHALATION Daily July 12, 2023 12:00am March 03, 2024 1:29pm puncture 1 cap using device; one dose = 2 inhalations Start: 07-12-2023 End: 03-03-2024 take 1 capsule by inhalation once daily Tiotropium [place] (Spiriva With Handihaler) 18 mcg capsule, w/inhalation device Discontinued 1 CAP INHALATION Daily July 12, 2023 1:00am March 03, 2024 2:29pm puncture 1 cap using device; one dose = 2 inhalations Start: 07-12-2023 take 1 capsule by in halation once daily Tiotropium [place] (Spiriva With Handihaler) 18 mcg capsule, w/inhalation device Active 1 CAP INHALATION Daily July 12, 2023 1:00am puncture 1 cap using device; one dose = 2 inhalations Start: 07-12-2023 take 1 capsule by in halation once daily Tiotropium [place] (Spiriva With Handihaler) 18 mcg capsule, w/inhalation [...] day(s), # 12 tab(s), Refills(s) 0, Pharmacy: [facility]/pharmacy #[id number], 182, cm, 08/02/24 9:08:00 EST, Height/Length [...] End: 03-08-2024 Blood-Glucose Meter,Continuous (Freestyle Jigar 3 [place]) misc (10 sources) Start: 12-25-2023 End: 12-28-2023 Blood-Glucose Meter,Continuous (Freestyle Jigar 3 [place]) misc Discontinued 0 .Route December 24, 2023 11:00pm December 28, 2023 10:03am As directed Start: 12-25-2023 End: 12-28-2023 Blood-Glucose Meter,Continuo us (Freestyle Jigar 3 [place]) misc Discontinued 0 .Route December 25, 2023 12:00am December 28, 2023 11:03am As directed Blood-Glucose Sensor (Freest yle Ijgar 3 Sensor) device (12 sources) Start: 12-25-2023 End: 12-28-2023 Blood-Glucose Sensor (Freest yle Jigar 3 Sensor) device Discontinued 0 .Route December 24, 2023 11:00pm December 28, 2023 10:03am As directed Start: 12-25-2023 End: 12-28-2023 Blood-Glucose Sensor (Freest yle Jigar 3 Sensor) device Discontinued 0 .Route December 25, 2023 12:00am December 28, 2023 11:03am As directed Blood-Glucose,Potter Or Ceramic Artist,Cont (Freestyle Jigar 3 [place]) misc (2 sources) Start: 12-25-2023 End: 12-28-2023 Blood-Glucose,Potter Or Ceramic Artist,Cont (Freestyle Jigar 3 [place]) misc Discontinued 0 .Route 1 December 25, [...] 08-23-2024 Start: 01-30-2023 take 1 capsule by [facility] once daily doxycycline hyclate 100 mg Cap 100 mg = 1 cap(s), Oral, Daily, Take 1 pill the day before the procedure and 1 pill after the procedure, # 2 cap(s), Refills(s) 0, Pharmacy: [facility]/pharmacy #[id number], 182, cm, 01/30/23 10:24:00 EDT, [...] 06-25-2024 Start: 09-28-2020 take 1 tablet by [facility] every twenty-four hours Jardiance 25 MG 1 [...] day(s) Apr, Active take 1 tablet by [facility] in the morning ferrous sulfate 325 (65 FE) mg tablet Take 1 tablet (325 mg total) by mouth in the morning. Active take 1 tablet by [facility] once daily ferrous sulfate, 325 mg ferrous [...] End: 03-13-2024 Start: 03-03-2024 End: 03-13-2024 Ipratropium Troy (Atroven t Hfa) 17 mcg/actuation HFA aerosol [...] 03-08-2024 Start: 02-21-2024 take 2 tablets by [facility] every six hours as needed for pain [...] [Coronary atherosclerosis of unspecified type of vessel, [place]ahu[place] or graft] Onset: 07-27-2021 Resolved: 02-15-2022 Chronic [...] sources) Long-term current use of insulin; Translations: [prison (current) use of insulin] 01-03-2024 Episodic Other and ill-defined heart disease (18 sources) Heart disease 11-23-2022 Chronic Other bone disease and musculoskeletal deformities (12 sources) History of amputation of right leg through tibia and fibula; 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 Performed By: #### A [facility] eA ####[place] [id number] [facility] HbA1c (Bld) [Mass fraction] 8.3 % High 4.3-5.6 [facility] Comment on above: Result Comment: Incr eased risk for diabetes: 5.7 - 6.4 diabetes: >6.4 glycemic control for adults with diabetes: <7.0 Performed By: #### [facility] eA ####[address] [address] [facility] Alanine aminotransferase [En zymatic activity/volume] in Serum or PlasmaOrdered By: Teresa Lynch on 10-26-2024 ALT [Catalytic activity/Vol] Alanine aminotransferase [Enzymatic activity/volume] in Serum or Plasma [facility] Albumin [Mass/volume] in Ser um or Plasma by Bromocresol green (BCG) dye binding methoOrdered By: Teresa Lynch on 10-26-2024 Albumin BCG dye [Mass/Vol] Albumin [Mass/volume] in Serum or Plasma by Bromocresol green (BCG) dye binding metho 3.5-5.7 [facility] Alkaline phosphatase [Enzyma tic activity/volume] in Serum or PlasmaOrdered By: Teresa Lynch on 10-26-2024 ALP [Catalytic activity/Vol] Alkaline phosphatase [Enzymatic activity/volume] in Serum or Plasma High 34-104 [facility] Anisocytosis LM Ql (Bld)Orde red By: Maurice Francis on 10-26-2024 Anisocytosis Ql (Bld) Anisocytosis [Pres ence] in Blood by Light microscopy [facility] Appearance of UrineOrdered B y: Amina Fagan on 10-26-2024 Appearance (U) Urine appearance Clear [facility] Aspartate aminotransferase [ Enzymatic activity/volume] in Serum or PlasmaOrdered By: Teresa Lynch on 10-26-2024 AST [Catalytic activity/Vol] Aspartate aminotransferase [Enzymatic activity/volume] in Serum or Plasma 13-39 [facility] Basophils Auto (Bld) [#/Vol] Ordered By: Maurice Francis on 10-26-2024 Basophils (Bld) [#/Vol] Automated basophil count 0.0-0.2 [facility] Basophils/100 WBC Auto (Bld) Ordered By: Maurice Francis on 10-26-2024 Basophils/100 WBC (Bld) Automated basophil % . [facility] Bilirubin Test strip Ql (U)O rdered By: Amina Fagan on 10-26-2024 Bilirubin Ql (U) Bilirubin.total [Presence] in Urine by Test strip Negative [facility] Bilirubin.total [Mass/volume ] in Serum or PlasmaOrdered By: Teresa Lynch on 10-26-2024 Bilirubin [Mass/Vol] Bilirubin.total [Mass/volume] in Serum or Plasma 0.3-1.0 [facility] Blood estimated average gluc ose determination by estimation from glycated hemoglobinOrdered By: Teresa Lynch on 10-26-2024 Average glucose Estimated from glycated hemoglobin (Bld) [Mass/Vol] Glucose mean value [Mass/volume] in Blood Estimated from glycated hemoglobin [facility] Calcium [Mass/volume] in Ser um or PlasmaOrdered By: Teresa Lynch on 10-26-2024 Calcium [Mass/Vol] Calcium [Mass/volume ] in Serum or Plasma 8.6-10.3 [facility] Carbon dioxide, total [Moles /volume] in Serum or PlasmaOrdered By: Teresa Lynch on 10-26-2024 CO2 [Moles/Vol] Carbon dioxide, tota l [Moles/volume] in Serum or Plasma 21.0-31.0 [facility] Chloride [Moles/volume] in S ilia or PlasmaOrdered By: Teresa Lynch on 10-26-2024 Chloride [Moles/Vol] Chloride [Moles/vol ume] in Serum or Plasma 98-107 [facility] Cholesterol [Mass/volume] in Serum or PlasmaOrdered By: Teresa Lynch on 10-26-2024 Cholesterol [Mass/Vol] Cholesterol [Mass /volume] in Serum or Plasma Low 140-200 [facility] Comment on above: Chol less than 200 m g/dl low riskChol 201-239 mg/dl borderline riskChol 240 mg/dl and greater high risk Cholesterol in HDL [Mass/vol ume] in Serum or PlasmaOrdered By: Teresa Lynch on 10-26-2024 Cholesterol in HDL [Mass/Vol] Serum or plasma high density lipoprotein (HDL) cholesterol measurement Low 23-92 [facility] Comment on above: HDL CHOL ATP-III CLA SSIFICATION Cardiovascular RiskHDL > or equal to 60 mg/dL LOWHDL < 40 mg/dL HIGH Cholesterol in LDL Calc [Mas s/Vol]Ordered By: Teresa Lynch on 10-26-2024 Cholesterol in LDL [Mass/Vol] Cholesterol in LDL [Mass/volume] in Serum or Plasma by calculation 0-100 [facility] Comment [...] LDL [Mass/volume] in Serum or Plasma 0-100 [facility] Comment on above: LDL ATP III CLASSIFI CATIONLDL less than 100 mg/dL OptimalLDL 100-129 mg/dL Near or above optimalLDL 130-159 mg/dL Borderline highLDL 160-189 mg/dL HighLDL greater than 189 mg/dL Very high Cholesterol in VLDL Calc [Ma ss/Vol]Ordered By: Teresa Lynch on 10-26-2024 Cholesterol in VLDL [Mass/Vol] Cholesterol in VLDL [Mass/volume] in Serum or Plasma by calculation [facility] Comment on above: Test not performed Color Auto (U)Ordered By: Norris Fagan on 10-26-2024 Color (U) Color of Urine by Auto Yellow [facility] Comprehensive Metabolic Pane guy 10-26-2024 Albumin [Mass/Vol] 4.3 g/dL Normal 3.5-5.7 [facility] Comment on above: Performed By: #### C MP, RENAL ####[place] [address] [place] [id number] [facility] Albumin/Globulin [Mass ratio] 1.7 {ratio} Normal [facility] Comment on above: Performed By: #### C MP, RENAL ####[place] [address] [place] [address] [facility] ALP [Catalytic activity/Vol] 132 U/L High 34-104 [facility] Comment on above: Performed By: #### C MP, RENAL ####[place] [address] [place] [address] [facility] ALT [Catalytic activity/Vol] 16 U/L Normal 7-52 [facility] Comment on above: Performed By: #### C MP, RENAL ####[place] [address] [place] [address] [facility] Anion gap [Moles/Vol] 16.4 mmol/L High 6.0-15.0 Th e [facility] Comment on above: Performed By: #### C MP, RENAL ####[place] [address] [place] [address] [facility] AST [Catalytic activity/Vol] 13 U/L Normal 13-39 [facility] Comment on above: Performed By: #### C MP, RENAL ####[place] [id number] [facility] Bilirubin [Mass/Vol] 0.4 mg/dL Normal 0.3-1.0 [facility] Comment on above: Performed By: #### C MP, RENAL ####[place] [id number] [facility] Calcium [Mass/Vol] 9.4 mg/dL Normal 8.6-10.3 [facility] Comment on above: Performed By: #### C MP, RENAL ####[place] [id number] [facility] Chloride [Moles/Vol] 98 mmol/L Normal 98-107 [facility] Comment on above: Performed By: #### C MP, RENAL ####[place] [id number] [facility] CO2 [Moles/Vol] 27.2 mmol/L Normal 21.0-31.0 [facility] Comment on above: Performed By: #### C MP, RENAL ####[place] [id number] [facility] Creatinine [Mass/Vol] 2.36 mg/dL High 0.70-1.30 [facility] Comment on above: Performed By: #### C MP, RENAL ####[place] [id number] [facility] Estimated GFR 30.940 mL/Min Normal [facility] Comment on above: Performed By: #### C MP, RENAL ####[place] [id number] [facility] Globulin (S) [Mass/Vol] 2.6 g/dL Normal [facility] Comment on above: Performed By: #### C MP, RENAL ####[place] [id number] [facility] Glucose [Mass/Vol] 264 mg/dL High 70-100 [facility] Comment on above: Result Comment: [place] Glucose Reference Range is dependent on time and content of last meal. Glucose of more than 200 mg/dL in a nonstressed, ambulatory subject supports the diagnosis of Diabetes Mellitus. ADA recommended reference range Performed By: #### C MP, RENAL ####[facility] [id number] Potassium [Moles/Vol] 4.6 mmol/L Normal 3.5-5.1 [facility] Comment on above: Performed By: #### C MP, RENAL ####[facility] [id number] Protein [Mass/Vol] 6.9 g/dL Normal 6.4-8.9 [facility] Comment on above: Performed By: #### C MP, RENAL ####[facility] Sodium [Moles/Vol] 137 mmol/L Normal 136-145 [facility] Comment on above: Performed By: #### C MP, RENAL ####[facility] Urea nitrogen [Mass/Vol] 33 mg/dL High 7-25 [facility] Comment on above: Performed By: #### C MP, RENAL ####[facility] Creatinine [Mass/volume] in Serum or PlasmaOrdered By: Teresa Lynch on 10-26-2024 Creatinine [Mass/Vol] Creatinine [Mass/v olume] in Serum or Plasma High 0.70-1.30 [facility] Creatinine [Mass/volume] in UrineOrdered By: Amina Fagan on 10-26-2024 Creatinine (U) [Mass/Vol] Creatinine [Mass/volume] in Urine [facility] Comment on above: No reference range e stablished Eosinophils Auto (Bld) [#/Vo l]Ordered By: Maurice Francis on 10-26-2024 Eosinophils (Bld) [#/Vol] Automated eosinophil count 0.0-0.45 [facility] Eosinophils/100 WBC Auto (Bl d)Ordered By: Maurice Francis on 10-26-2024 Eosinophils/100 WBC (Bld) Automated eosinophil % . [facility] Erythrocyte distribution wid th Auto (RBC) [Ratio]Ordered By: Maurice Francis on 10-26-2024 Erythrocyte distribution width (RBC) [Ratio] Erythrocyte distribution width [Ratio] by Automated count High 12.0-14.8 [facility] Erythrocyte morphology findi ng [Identifier] in BloodOrdered By: Maurice Francis on 10-26-2024 RBC morphology finding Nom (Bld) RBC morphology [facility] Ferritinon 10-26-2024 Ferritin [Mass/Vol] 8.3 ng/mL Low 23.9-336.[address] [facility] Comment on above: Performed By: #### F ER, [id number], URIC, PTH, FE and TIBC ####[facility] [id number] [place] [id number] [facility] Ferritin [Mass/volume] in Se rum or PlasmaOrdered By: Amina Fagan on 10-26-2024 Ferritin [Mass/Vol] Ferritin [Mass/volum e] in Serum or Plasma Low 23.9-336.2 [facility] Folate [Mass/volume] in Seru m or PlasmaOrdered By: Amina Fagan on 10-26-2024 Folate [Mass/Vol] Folate [Mass/volume] in Serum or Plasma >5.9 [facility] Comment on above: Folate reference ran ge: >5.9 ng/mlThe WHO technical consultation on folate and vitamin [id number] has determined that folate concentrations lessthan 4 ng/ml are considered deficient. Globulin Calc (S) [Mass/Vol] Ordered By: Teresa Lynch on 10-26-2024 Globulin (S) [Mass/Vol] Serum globulin measurement by calculation (mass/volume) [facility] Glucose [Mass/volume] in Ser um or PlasmaOrdered By: Teresa Lynch on 10-26-2024 Glucose [Mass/Vol] Glucose [Mass/volume ] in Serum or Plasma High 70-100 [facility] Comment on above: ADA recommended refe [...] in Urine by Test strip High Normal [facility] Hematocrit Auto (Bld) [Volum e fraction]Ordered By: Maurice Francis on 10-26-2024 Hematocrit (Bld) [Volume fraction] Hematocrit [Volume Fraction] of Blood by Automated count 38.8-50.0 [facility] Hemoglobin A1c/Hemoglobin.to roberto carlos in BloodOrdered By: Teresa Lynch on 10-26-2024 HbA1c (Bld) [Mass fraction] Hemoglobin A1c percentage High 4.3-5.6 [facility] Comment on above: Increased risk for d iabetes: 5.7 - 6.4diabetes: >6.4glycemic control for adults with diabetes: <7.0 Hemoglobin Test strip Ql (U) Ordered By: Amina Fagan on 10-26-2024 Hemoglobin Ql (U) Hemoglobin [Presence ] in Urine by Test strip Negative [facility] Hemoglobin [Mass/volume] in BloodOrdered By: Maurice Francis on 10-26-2024 Hemoglobin (Bld) [Mass/Vol] Hemoglobin [Mass/volume] in Blood 13.0-17.0 [facility] Iron [Mass/volume] in Serum or PlasmaOrdered By: Amina Fagan on 10-26-2024 Iron [Mass/Vol] Iron [Mass/volume] i n Serum or Plasma Low 50-212 [facility] Iron and TIBC Profileon 10-04 % Iron Saturation 6.9 % Low 20-50 [facility] Comment on above: Performed By: #### F ER, [id number], URIC, PTH, FE and TIBC ####[facility] [id number] [place] [address] [facility] Iron [Mass/Vol] 31 ug/dL Low 50-212 [facility] Comment on above: Performed By: #### F ER, [id number], URIC, PTH, FE and TIBC ####[facility] [id number] [place] [address] [facility] Total Iron Binding Capacity 449 ug/dL Normal 255-450 [facility] Comment on above: Performed By: #### F ER, [id number], URIC, PTH, FE and TIBC ####[place] [id number] Transferrin [Mass/Vol] 321 mg/dL Normal 203-362 Th e [facility] Comment on above: Performed By: #### F ER, [id number], URIC, PTH, FE and TIBC ####[place] [id number] [place] [id number] [facility] Ketones Test strip Ql (U)Ord ered By: Amina Fagan on 10-26-2024 Ketones Ql (U) Ketones [Presence] i n Urine by Test strip Negative [facility] LDL Cholesterol Measuredon 0 - LDL Cholesterol Measured 36 mg/dL Normal 0-100 [facility] Comment on above: Result Comment: LDL ATP III CLASSIFICATION LDL less than 100 mg/dL Optimal LDL 100-129 mg/dL Near or above optimal LDL 130-159 mg/dL Borderline high LDL 160-189 mg/dL High LDL greater than 189 mg/dL Very high Performed By: #### L DLD, MG, URIC, TSH3, [id number], PSAS, LIPID ####[place] [id number] Leukocyte esterase [Presence ] in Urine by Test stripOrdered By: Amina Fagan on 10-26-2024 Leukocyte esterase Test strip Ql (U) Leukocyte esterase [Presence] in Urine by Test strip Negative [facility] Leukocytes [#/volume] correc jorge for nucleated erythrocytes in Blood by Automated counOrdered By: Maurice Francis on 10-26-2024 WBC corrected for nucl RBC Auto (Bld) [#/Vol] Leukocytes [#/volume] corrected for nucleated erythrocytes in Blood by Automated coun 4.1-10.5 [facility] Lipid Panelon 10-26-2024 Cholesterol [Mass/Vol] 108 mg/dL Low 140-200 Th e [facility] Comment on above: Result Comment: Chol less than 200 mg/dl low risk Chol 201-239 mg/dl borderline risk Chol 240 mg/dl and greater high risk Performed By: #### L DLD, MG, URIC, TSH3, [id number], PSAS, LIPID ####[place] [id number] Cholesterol in HDL [Mass/Vol] 21 mg/dL Low 23-92 [facility] Comment on above: Result Comment: HDL CHOL ATP-III CLASSIFICATION Cardiovascular Risk HDL > or equal to 60 mg/dL LOW HDL < 40 mg/dL HIGH Performed By: #### L DLD, MG, URIC, TSH3, [id number], PSAS, LIPID ####[place] [id number] Cholesterol.total/Chol esterol in HDL [Mass ratio] 5.1 {ratio} Normal <5.0 [facility] Comment on above: Performed By: #### L DLD, MG, URIC, TSH3, [id number], PSAS, LIPID ####[place] [id number] LDL Cholesterol,Calculated <10 Normal 0-100 [facility] Comment on above: Result Comment: LDL ATP III CLASSIFICATION LDL less than 100 mg/dL Optimal LDL 100-129 mg/dL Near or above optimal LDL 130-159 mg/dL Borderline high LDL 160-189 mg/dL High LDL greater than 189 mg/dL Very high Performed By: #### L DLD, MG, URIC, TSH3, [id number], PSAS, LIPID ####[place] [address] [place] [id number] [facility] Triglyceride w/Reflex 529 mg/dL High 0-149 [facility] Comment on above: Result [...] By: #### L DLD, MG, URIC, TSH3, [id number], PSAS, LIPID ####[address] VLDL CHOLESTEROL Not performed Normal [facility] Comment on above: Performed By: #### L DLD, MG, URIC, TSH3, [id number], PSAS, LIPID ####[facility] [id number] [place] [id number] [facility] Lymphocytes Auto (Bld) [#/Vo l]Ordered By: Maurice Tito on 10-26-2024 Lymphocytes (Bld) [#/Vol] Lymphocytes [#/volume] in Blood by Automated count 1.00-4.8 [facility] Lymphocytes/100 WBC Auto (Bl d)Ordered By: Maurice Tito on 10-26-2024 Lymphocytes/100 WBC (Bld) Lymphocytes/100 leukocytes in Blood by Automated count . [facility] MCH Auto (RBC) [Entitic mass ]Ordered By: Maurice Reinar on 10-26-2024 MCH (RBC) [Entitic mass] MCH [Entitic mass] by Automated count Low 27.5-35.2 [facility] MCHC Auto (RBC) [Mass/Vol]Or dered By: Maurice Tito on 10-26-2024 MCHC (RBC) [Mass/Vol] MCHC [Mass/volume] by Automated count 32.5-35.6 [facility] MCV Auto (RBC) [Entitic vol] Ordered By: Maurice Tito on 10-26-2024 MCV (RBC) [Entitic vol] MCV [Entitic volume] by Automated count Low 83.5-101 [facility] Magnesiumon 10-26-2024 Magnesium [Mass/Vol] 1.8 mg/dL Low 1.9-2.7 [facility] Comment on above: Performed By: #### L DLD, MG, URIC, TSH3, [id number], PSAS, LIPID ####[facility] [place] [address] [facility] Magnesium [Mass/volume] in S ilia or PlasmaOrdered By: Teresa Lynch on 10-26-2024 Magnesium [Mass/Vol] Magnesium [Mass/vol ume] in Serum or Plasma Low 1.9-2.7 [facility] Microalbumin [Mass/volume] i n UrineOrdered By: Teresa Lynch on 05-24-2025 Albumin DL <= 20 mg/L (U) [Mass/Vol] Microalbumin [Mass/volume] in Urine 0.0-1.8 [facility] Microalbumin, Urine (Random) on 10-26-2024 Albumin DL <= 20 mg/L (U) [Mass/Vol] 0.9 mg/dL Normal 0.0-1.8 [facility] Comment on above: Result Comment: PERF ORMED BY:[facility] [place], [place] [phone] MEDICAL DIRECTORBREANNE RUTHERFORD M.D. Performed By: #### U RMA ####[facility] [place] [address] [facility] Microcytes LM Ql (Bld)Ordere d By: Maurice Francis on 10-26-2024 Microcytes Ql (Bld) Microcytes [Presence ] in Blood by Light microscopy [facility] Monocytes Auto (Bld) [#/Vol] Ordered By: Maurice Reinar on 10-26-2024 Monocytes (Bld) [#/Vol] Automated blood monocyte count 0.0-0.8 [facility] Monocytes/100 WBC Auto (Bld) Ordered By: Maurice Swansondir on 10-26-2024 Monocytes/100 WBC (Bld) Automated monocyte % . [facility] Neutrophils Auto (Bld) [#/Vo l]Ordered By: Maurice Reinar on 10-26-2024 Neutrophils (Bld) [#/Vol] Neutrophils [#/volume] in Blood by Automated count 1.8-7.7 [facility] Neutrophils/100 WBC Auto (Bl d)Ordered By: Maurice Tito on 10-26-2024 Neutrophils/100 WBC (Bld) Automated neutrophil % . [facility] Nitrite Test strip Ql (U)Ord ered By: Amina Fagan on 10-26-2024 Nitrite Ql (U) Nitrite [Presence] i n Urine by Test strip Negative [facility] No Panel InformationOrdered By: Teresa Lynch on 10-26-2024 Estimated GFR (CKD-EPI) 30.940 mL/Min [facility] Creatinine Clearance (Chem N/A [facility] 30.940 mL/Min [facility] N/A [facility] Nucleated erythrocytes [Pres ence] in Blood by Automated countOrdered By: Maurice Francis on 10-26-2024 Nucleated RBC Auto Ql (Bld) Nucleated erythrocytes [Presence] in Blood by Automated count 0-0.5 [facility] PSA Screen (Yearly Only)on 0 10-26-2024 PSA Screen (Yearly Only) 1.160 ng/mL Normal 0.000-4.00 0 [facility] Comment on above: Result Comment: Seri al tumor marker results determined by assays using different manufacturers or methods may not be comparable. [facility] Laboratory mutual fund accountant and method: [employer] DXI, CHEMILUMINESCENT IMMUNOASSAY.PERFORMED BY:[place] [address] [place], [place] [phone] MEDICAL DIRECTORBREANNE RUTHERFORD M.D. Performed By: #### L DLD, MG, URIC, TSH3, [id number], PSAS, LIPID ####[address] [address] [facility] Parathyrin.intact [Mass/volu me] in Serum or PlasmaOrdered By: Amina Fagan on 10-26-2024 Parathyrin.intact [Mass/Vol] Parathyrin.intact [Mass/volume] in Serum or Plasma [facility] Parathyroid Hormone Intacton 10-26-2024 Parathyroid Hormone Intact 87.9 pg/mL Normal - [facility] Comment on above: Result Comment: PERF ORMED BY:[place] [address] [place], [place] [phone] MEDICAL DIRECTORBREANNE RUTHERFORD M.D. Performed By: #### F ER, [id number], URIC, PTH, FE and TIBC ####[address] [address] [facility] Phosphate [Mass/volume] in S ilia or PlasmaOrdered By: Teresa Lynch on 10-26-2024 Phosphate [Mass/Vol] Phosphate [Mass/vol ume] in Serum or Plasma 2.5-4.5 [facility] Platelet adequacy [Presence] in Blood by Light microscopyOrdered By: Maurice Francis on 10-26-2024 Platelets LM Ql (Bld) Platelet adequacy [Presence] in Blood by Light microscopy Normal [facility] Platelet mean volume Auto (B ld) [Entitic vol]Ordered By: Maurice Francis on 10-26-2024 Platelet mean volume (Bld) [Entitic vol] Platelet mean volume [Entitic volume] in Blood by Automated count 6.6-10.1 [facility] Platelet morphology finding [Identifier] in BloodOrdered By: Maurice Francis on 10-26-2024 Platelet morphology finding Nom (Bld) Platelet morphology finding [Identifier] in Blood [facility] Platelets Auto (Bld) [#/Vol] Ordered By: Maurice Francis on 10-26-2024 Platelets (Bld) [#/Vol] Platelets [#/volume] in Blood by Automated count 150-450 [facility] Platelets Large [Presence] i n Blood by Light microscopyOrdered By: Maurice Francis on 10-26-2024 Platelets Large LM Ql (Bld) Platelets Large [Presence] in Blood by Light microscopy [facility] Polychromasia [Presence] in Blood by Light microscopyOrdered By: Maurice Francis on 10-26-2024 Polychromasia LM Ql (Bld) Polychromasia [Presence] in Blood by Light microscopy [facility] Potassium [Moles/volume] in Serum or PlasmaOrdered By: Teresa Lynch on 10-26-2024 Potassium [Moles/Vol] Potassium [Moles/v olume] in Serum or Plasma 3.5-5.1 [facility] Prostate specific Ag [Mass/v olume] in Serum or PlasmaOrdered By: Teresa Lynch on 10-26-2024 Prostate specific Ag [Mass/Vol] Prostate specific Ag [Mass/volume] in Serum or Plasma 0.000-4.00 0 [facility] Comment on above: Serial tumor marker results determined by assays using different manufacturers or methods may not be comparable.[facility] Laboratory mutual fund accountant and method:[employer]O [employer] Mobile[employer] DXI, CHEMILUMINESCENT IMMUNOASSAY. Protein Creat Ratio Ur Rando mon 10-26-2024 Creatinine, Urine (Random) 62.00 mg/dL Normal [facility] Comment on above: Result Comment: No r eference range established Performed By: #### P ROCHERMANN, UA ####[place] [address] [place] [address] [facility] Protein (U) [Mass/Vol] 12 mg/dL High 0-9 Th e [facility] Comment on above: Performed By: #### P ROCHERMANN, UA ####[address] [address] [facility] Urine Protein/Creatinine Ratio 194 mg/g{Cre} Normal 0-200 [facility] Comment on above: Result Comment: PERF ORMED BY:[address] [place], [place] [phone] MEDICAL DIRECTORBREANNE RUTHERFORD M.D. Performed By: #### P ROCHERMANN, UA ####[address] [address] [facility] Protein Test strip (U) [Mass /Vol]Ordered By: mAina Fagan on 10-26-2024 Protein (U) [Mass/Vol] Protein [Mass/vol ume] in Urine by Test strip Negative [facility] Protein [Mass/volume] in Ser um or PlasmaOrdered By: Teresa Lynch on 10-26-2024 Protein [Mass/Vol] Protein [Mass/volume ] in Serum or Plasma 6.4-8.9 [facility] Protein [Mass/volume] in Uri neOrdered By: Amina Fagan on 10-26-2024 Protein (U) [Mass/Vol] Protein [Mass/vol ume] in Urine High 0-9 [facility] RBC Auto (Bld) [#/Vol]Ordere d By: Maurice Francis on 10-26-2024 RBC (Bld) [#/Vol] Erythrocytes [#/volu me] in Blood by Automated count 3.90-5.60 [facility] Renal Function Panelon 10-26 Phosphate [Mass/Vol] 3.9 mg/dL Normal 2.5-4.5 [facility] Comment on above: Result Comment: PERF ORMED BY:[place] [address] [place], [place] [phone] MEDICAL DIRECTORBREANNE RUTHERFORD M.D. Performed By: #### C MP, RENAL ####[address] Scan and CBCon 10-26-2024 Anisocytosis Ql (Bld) Marked Normal [facility] Comment on above: Performed By: #### S CAN CBC ####[address] Basophils (Bld) [#/Vol] 0.1 10*3/uL Normal 0.0-0.2 [facility] Comment on above: Performed By: #### S CAN CBC ####[address] Basophils/100 WBC (Bld) 1.1 % Normal . [facility] Comment on above: Performed By: #### S CAN CBC ####[address] Eosinophils (Bld) [#/Vol] 0.3 10*3/uL Normal 0.0-0.45 [facility] Comment on above: Performed By: #### S CAN CBC ####[address] Eosinophils/100 WBC (Bld) 3.5 % Normal . [facility] Comment on above: Performed By: #### S CAN CBC ####[address] Erythrocyte distribution width (RBC) [Ratio] 21.5 % High 12.0-14.8 [facility] Comment on above: Performed By: #### S CAN CBC ####[address] Hematocrit (Bld) [Volume fraction] 42.7 % Normal 38.8-50.0 [facility] Comment on above: Performed By: #### S CAN CBC ####[address] Hemoglobin (Bld) [Mass/Vol] 14.3 g/dL Normal 13.0-17.0 [facility] Comment on above: Performed By: #### S CAN CBC ####[place] [id number] [facility] Large Platelets Slight Normal [facility] Comment on above: Result Comment: PERF ORMED BY:[address] [place], [place] [phone] MEDICAL DIRECTORBREANNE RUTHERFORD M.D. Performed By: #### S CAN CBC ####[address] Lymphocytes (Bld) [#/Vol] 1.6 10*3/uL Normal 1.00-4.8 [facility] Comment on above: Performed By: #### S CAN CBC ####[address] Lymphocytes/100 WBC (Bld) 17.7 % Normal . [facility] Comment on above: Performed By: #### S CAN CBC ####[address] MCH (RBC) [Entitic mass] 25.9 pg Low 27.5-35.2 [facility] Comment on above: Performed By: #### S CAN CBC ####[address] MCV (RBC) [Entitic vol] 77.1 fL Low 83.5-101 [facility] Comment on above: Performed By: #### S CAN CBC ####[place] [id number] [facility] Mean Corpuscular HGB Conc 33.6 g/dL Normal 32.5-35.6 [facility] Comment on above: Performed By: #### S CAN CBC ####[address] Microcytosis Slight Normal [facility] Comment on above: Performed By: #### S CAN CBC ####[place] [id number] [facility] Monocytes (Bld) [#/Vol] 0.8 10*3/uL Normal 0.0-0.8 [facility] Comment on above: Performed By: #### S CAN CBC ####[address] Monocytes/100 WBC (Bld) 9.2 % Normal . [facility] Comment on above: Performed By: #### S CAN CBC ####[address] Neutrophils (Bld) [#/Vol] 6.0 10*3/uL Normal 1.8-7.7 [facility] Comment on above: Performed By: #### S CAN CBC ####[address] Neutrophils/100 WBC (Bld) 68.5 % Normal . [facility] Comment on above: Performed By: #### S CAN CBC ####[address] NRBC% 0.1 /100{WBC} Normal 0-0.5 [facility] Comment on above: Performed By: #### S CAN CBC ####[address] Platelet Estimate Normal Normal Normal [facility] Comment on above: Performed By: #### S CAN CBC ####[address] Platelet mean volume (Bld) [Entitic vol] 9.5 fL Normal 6.6-10.1 [facility] Comment on above: Performed By: #### S CAN CBC ####[address] Platelets (Bld) [#/Vol] 167 10*3/uL Normal 150-450 [facility] Comment on above: Performed By: #### S CAN CBC ####[address] Polychromasia Slight Normal [facility] Comment on above: Performed By: #### S CAN CBC ####[facility] [id number] [place] [address] [facility] RBC (Bld) [#/Vol] 5.54 10*6/uL Normal 3.90-5.60 [facility] Comment on above: Performed By: #### S CAN CBC ####[facility] [place] [id number] [facility] WBC (Bld) [#/Vol] 8.8 10*3/uL Normal 4.1-10.5 [facility] Comment on above: Performed By: #### S CAN CBC ####[place] [id number] Serum or plasma albumin/glob ulin mass ratioOrdered By: Teresa Lynch on 10-26-2024 Albumin/Globulin [Mass ratio] Serum or plasma albumin/globulin mass ratio [facility] Serum or plasma anion gap de terminationOrdered By: Teresa Lynch on 10-26-2024 Anion gap [Moles/Vol] Serum or plasma an ion gap determination High 6.0-15.0 [facility] Serum or plasma iron binding capacity measurement (mass/volume)Ordered By: Amina Fagan on 10-26-2024 Iron binding capacity [Mass/Vol] Iron binding capacity [Mass/volume] in Serum or Plasma 255-450 [facility] Serum or plasma iron saturat ion measurement (mass fraction)Ordered By: Amina Fagan on 10-26-2024 Iron saturation [Mass fraction] Iron saturation [Mass Fraction] in Serum or Plasma Low 20-50 [facility] Serum or plasma total choles terol/high density lipoprotein (HDL) cholesterol mass ratOrdered By: Teresa Lynch on 10-26-2024 Cholesterol.total/Chol esterol in HDL [Mass ratio] Serum or plasma total cholesterol/high density lipoprotein (HDL) cholesterol mass rat <5.0 [facility] Sodium [Moles/volume] in Ser um or PlasmaOrdered By: Teresa Lynch on 10-26-2024 Sodium [Moles/Vol] Sodium [Moles/volume ] in Serum or Plasma 136-145 [facility] Specific gravity Test strip (U) [Rel density]Ordered By: Amina Fagan on 10-26-2024 Specific gravity (U) [Rel density] Specific gravity of Urine by Test strip 1.001-1.03 0 [facility] Thyroid Stimulating Hormoneo n 10-26-2024 TSH Qn 3.68 m[IU]/L Normal 0.45-5.33 [facility] Comment on above: Performed By: #### L DLD, MG, URIC, TSH3, [id number], PSAS, LIPID ####[facility] [id number] [place] [address] [facility] Thyrotropin [Units/volume] i n Serum or PlasmaOrdered By: Teresa Lynch on 10-26-2024 TSH Qn Thyrotropin [Units/volume] in Serum or Plasma 0.45-5.33 [facility] Transferrin [Mass/volume] in Serum or PlasmaOrdered By: Amina Fagan on 10-26-2024 Transferrin [Mass/Vol] Transferrin [Mass /volume] in Serum or Plasma 203-362 [facility] Triglyceride [Mass/volume] i n Serum or PlasmaOrdered By: Teresa Lynch on 10-26-2024 Triglyceride [Mass/Vol] Triglyceride [Mass/volume] in Serum or Plasma High 0-149 [facility] Comment [...] [Mass/volume] in Serum or Plasma High 4.4-7.6 [facility] Urea nitrogen [Mass/volume] in Serum or PlasmaOrdered By: Teresa Lynch on 10-26-2024 Urea nitrogen [Mass/Vol] Urea nitrogen [Mass/volume] in Serum or Plasma High 7-25 [facility] Uric Acidon 10-26-2024 Urate [Mass/Vol] 10.5 mg/dL High 4.4-7.6 [facility] Comment on above: Performed By: #### F ER, [id number], URIC, PTH, FE and TIBC ####[address] [address] [facility] Urate [Mass/Vol] 10.5 mg/dL High 4.4-7.6 [facility] Comment on above: Performed By: #### L DLD, MG, URIC, TSH3, [id number], PSAS, LIPID ####[address] [address] [facility] Urinalysison 10-26-2024 Appearance (U) Clear Normal Clear [facility] Comment on above: Order Comment: Name Collection Type:: Clean-Voided Midstream Performed By: #### P ROCRERAT, UA ####[address] [address] [facility] Bilirubin,Urine Negative Normal Negative [facility] Comment on above: Order Comment: Name Collection Type:: Clean-Voided Midstream Performed By: #### P ROCRERAT, UA ####[address] [address] [facility] Color (U) Light-Yellow Normal Yellow [facility] Comment on above: Order Comment: Name Collection Type:: Clean-Voided Midstream Performed By: #### P ROCRERAT, UA ####[address] [address] [facility] Glucose Ql (U) >= High Normal [facility] Comment on above: Order Comment: Name Collection Type:: Clean-Voided Midstream Performed By: #### P ROCRERAT, UA ####[address] [address] [facility] Ketones Ql (U) Negative Normal Negative [facility] Comment on above: Order Comment: Name Collection Type:: Clean-Voided Midstream Performed By: #### P ROCRERAT, UA ####[address] [address] [facility] Leukocyte esterase Test strip Ql (U) Negative Normal Negative [facility] Comment on above: Order Comment: Name Collection Type:: Clean-Voided Midstream Performed By: #### P ROCRERAT, UA ####[address] [address] [facility] Nitrite,Urine Negative Normal Negative [facility] Comment on above: Order Comment: Name Collection Type:: Clean-Voided Midstream Performed By: #### P ROCRERAT, UA ####[address] [address] [facility] Occult Blood,Urine Negative Normal Negative [facility] Comment on above: Order Comment: Name Collection Type:: Clean-Voided Midstream Result Comment: PERF ORMED BY:[address] [place], [place] [phone] MEDICAL MARY RUTHERFORD M.D. Performed By: #### P ROCRERAT, UA ####[address] [address] [facility] pH (U) 5.5 [pH] Normal 5.0-9.0 [facility] Comment on above: Order Comment: Name Collection Type:: Clean-Voided Midstream Performed By: #### P ROCRERAT, UA ####[address] [address] [facility] Protein,Urine Negative Normal Negative The [facility] Comment on above: Order Comment: Name Collection Type:: Clean-Voided Midstream Performed By: #### P ROCRERAT, UA ####[address] [address] [facility] Specificy [place],Urine 1.020 Normal 1.001-1.03 0 [facility] Comment on above: Order Comment: Name Collection Type:: Clean-Voided Midstream Performed By: #### P ROCRERAT, UA ####[address] [address] [facility] Urobilinogen,Urine Normal Normal Normal The [facility] Comment on above: Order Comment: Name Collection Type:: Clean-Voided Midstream Performed By: #### P ROCRERAT, UA ####[address] [address] [facility] Urine protein/creatinine rat ioOrdered By: Amina Fagan on 10-26-2024 Protein/Creatinine (U) [Ratio] Urine protein/creatinine ratio 0-200 [facility] Urobilinogen Test strip (U) [Mass/Vol]Ordered By: Amina Fagan on 10-26-2024 Urobilinogen (U) [Mass/Vol] Urobilinogen [Mass/volume] in Urine by Test strip Normal [facility] Vit. B12/Folate Profileon Cobalamin (Vitamin B12) [Mass/Vol] 195 pg/mL Normal 180-914 [facility] Comment on above: Performed By: #### F ER, [id number], URIC, PTH, FE and TIBC ####[address] [address] [facility] Folate 10.1 ng/mL Normal >5.9 [facility] Comment on above: Result Comment: Aure te reference range: >5.9 ng/ml The WHO technical consultation on folate and vitamin b12 deficiencies has determined that folate concentrations less than 4 ng/ml are considered deficient.PERFORMED BY:[address] [place], [place] [phone] MEDICAL MARY RUTHERFORD M.D. Performed By: #### F ER, [id number], URIC, PTH, FE and TIBC ####[address] [address] [facility] Vitamin B12 ser/plasOrdered By: Amina Fagan on 10-26-2024 Cobalamin (Vitamin B12) [Mass/Vol] Vitamin B12 ser/plas 180-914 [facility] Vitamin D 25 Hydroxy Totalon 10-26-2024 Vitamin D 25 Hydroxy Total 17.0 ng/mL Low 30-100 [facility] Comment on above: Result Comment: SUBHA MIN D STATUS 25(OH)VITAMIN D RANGE (ng/mL) Deficient <20 Insufficient 20 to <30 Sufficient 30 to 100 Reference: Ibrahima Reyes, Kasey LONG, et al. Evaluation,treatment, and prevention of vitamin D deficiency; an Endocrine Society clinical practice guideline. JCEM. 2010; 96(7):1911-.PERFORMED BY:[facility] [place], [place] [phone] MEDICAL DIRECTORBREANNE RUTHERFORD M.D. Performed By: #### L DLD, MG, URIC, TSH3, [id number], PSAS, LIPID ####[facility] [place] [address] [facility] Vitamin D+Metabolites [Mass/ volume] in Serum or PlasmaOrdered By: Teresa Lynch on 10-26-2024 Vitamin D+Metabolites [Mass/Vol] Vitamin D+Metabolites [Mass/volume] in Serum or Plasma Low 30-100 [facility] Comment on above: VITAMIN D STATUS 25( [...] ] in Blood by Automated count 4.1-10.5 [facility] pH Test strip (U)Ordered By: Amina Fagan on 10-26-2024 pH (U) pH of Urine by Test strip 5.0-9.0 [facility] Anisocytosis LM Ql (Bld)Orde red By: Abdullahi Canchola on 10-11-2024 Anisocytosis Ql (Bld) Anisocytosis [Pres ence] in Blood by Light microscopy [facility] Basic Metabolic Panelon Anion gap [Moles/Vol] 15.7 mmol/L High 6.0-15.0 Th e [facility] Comment on above: Performed By: #### B MP, CK, HS TROP, FE and TIBC, LILA, MG, SCAN CBC ####[address] Calcium [Mass/Vol] 8.9 mg/dL Normal 8.6-10.3 [facility] Comment on above: Performed By: #### B MP, CK, HS TROP, FE and TIBC, LILA, MG, SCAN CBC ####[address] Chloride [Moles/Vol] 99 mmol/L Normal 98-107 [facility] Comment on above: Performed By: #### B MP, CK, HS TROP, FE and TIBC, LILA, MG, SCAN CBC ####[address] CO2 [Moles/Vol] 25.5 mmol/L Normal 21.0-31.0 The [facility] Comment on above: Performed By: #### B MP, CK, HS TROP, FE and TIBC, LILA, MG, SCAN CBC ####[address] Creatinine [Mass/Vol] 2.43 mg/dL High 0.70-1.30 [facility] Comment on above: Performed By: #### B MP, CK, HS TROP, FE and TIBC, LILA, MG, SCAN CBC ####[address] Creatinine Clr Calc Pharmacy 35.93 Normal [facility] Comment on above: Performed By: #### B MP, CK, HS TROP, FE and TIBC, LILA, MG, SCAN CBC ####[address] Estimated GFR 29.874 mL/Min Normal The [facility] Comment on above: Performed By: #### B MP, CK, HS TROP, FE and TIBC, LILA, MG, SCAN CBC ####[address] Glucose [Mass/Vol] 221 mg/dL High 70-100 [facility] Comment on above: Result Comment: [facility] Glucose Reference Range is dependent on time and content of last meal. Glucose of more than 200 mg/dL in a nonstressed, ambulatory subject supports the diagnosis of Diabetes Mellitus. ADA recommended reference range Performed By: #### B MP, CK, HS TROP, FE and TIBC, LILA, MG, SCAN CBC ####[facility] Potassium [Moles/Vol] 4.2 mmol/L Normal 3.5-5.1 [facility] Comment on above: Performed By: #### B MP, CK, HS TROP, FE and TIBC, LILA, MG, SCAN CBC ####[place] [id number] [address] Sodium [Moles/Vol] 136 mmol/L Normal 136-145 [facility] Comment on above: Performed By: #### B MP, CK, HS TROP, FE and TIBC, LILA, MG, SCAN CBC ####[place] [id number] [address] Urea nitrogen [Mass/Vol] 39 mg/dL High 7-25 [facility] Comment on above: Performed By: #### B MP, CK, HS TROP, FE and TIBC, LILA, MG, SCAN CBC ####[address] Basophils Auto (Bld) [#/Vol] Ordered By: Abdullahi Canchola on 10-11-2024 Basophils (Bld) [#/Vol] Automated basophil count 0.0-0.2 [facility] Basophils/100 WBC Auto (Bld) Ordered By: Abdullahi Canchola on 10-11-2024 Basophils/100 WBC (Bld) Automated basophil % . [facility] Calcium [Mass/volume] in Ser um or PlasmaOrdered By: Abdullahi Canchola on 10-11-2024 Calcium [Mass/Vol] Calcium [Mass/volume ] in Serum or Plasma 8.6-10.3 [facility] Carbon dioxide, total [Moles /volume] in Serum or PlasmaOrdered By: Abdullahi Canchola on 10-11-2024 CO2 [Moles/Vol] Carbon dioxide, tota l [Moles/volume] in Serum or Plasma 21.0-31.0 [facility] Chloride [Moles/volume] in S ilia or PlasmaOrdered By: Abdullahi Canchola on 10-11-2024 Chloride [Moles/Vol] Chloride [Moles/vol ume] in Serum or Plasma 98-107 [facility] Creatine Kinaseon 10-11-2024 CK [Catalytic activity/Vol] 91 U/L Normal 30-223 [facility] Comment on above: Performed By: #### B MP, CK, HS TROP, FE and TIBC, LILA, MG, SCAN CBC ####[facility] [id number] Creatine kinase [Enzymatic a ctivity/volume] in Serum or PlasmaOrdered By: Abdullahi Canchola on 10-11-2024 CK [Catalytic activity/Vol] Creatine kinase [Enzymatic activity/volume] in Serum or Plasma 30-223 [facility] Creatinine [Mass/volume] in Serum or PlasmaOrdered By: Abdullahi Canchola on 10-11-2024 Creatinine [Mass/Vol] Creatinine [Mass/v olume] in Serum or Plasma High 0.70-1.30 [facility] ECH echo transthoracicon ECH echo transthoracic Normal Th e [facility] Eosinophils Auto (Bld) [#/Vo l]Ordered By: Abdullahi Canchola on 10-11-2024 Eosinophils (Bld) [#/Vol] Automated eosinophil count 0.0-0.45 [facility] Eosinophils/100 WBC Auto (Bl d)Ordered By: Abdullahi Canchola on 10-11-2024 Eosinophils/100 WBC (Bld) Automated eosinophil % . [facility] Erythrocyte distribution wid th Auto (RBC) [Ratio]Ordered By: Abdullahi Canchola on 10-11-2024 Erythrocyte distribution width (RBC) [Ratio] Erythrocyte distribution width [Ratio] by Automated count High 12.0-14.8 [facility] Erythrocyte morphology findi ng [Identifier] in BloodOrdered By: Abdullahi Canchola on 10-11-2024 RBC morphology finding Nom (Bld) RBC morphology [facility] Ferritinon 10-11-2024 Ferritin [Mass/Vol] 8.2 ng/mL Low 23.9-336.[address] [facility] Comment on above: Result Comment: PERF ORMED BY:[place] [address] [address] [place], [place] [phone] MEDICAL DIRECTORMIKE CABAN M.D. Performed By: #### B MP, CK, HS TROP, FE and TIBC, LILA, MG, SCAN CBC ####[facility] [address] [place] [address] [facility] Ferritin [Mass/volume] in Se rum or PlasmaOrdered By: Abdullahi Canchola on 10-11-2024 Ferritin [Mass/Vol] Ferritin [Mass/volum e] in Serum or Plasma Low 23.9-336.2 [facility] Glucose Glucometer (BldC) [M ass/Vol]Ordered By: Abdullahi Canchola on 10-11-2024 Glucose [Mass/Vol] Capillary blood gluc ose measurement by glucometer (mass/volume) [facility] Comment on above: Random Glucose Refer ence Range is dependent on time and content of last meal. Glucose of more than 200 mg/dL in a nonstressed, ambulatory subject supports the diagnosis of Diabetes Mellitus. Glucose Poct Glucometerson 0 10-11-2024 Commemt1 Glu2: Cleaned Meter Normal The [facility] Comment on above: Result Comment: PERF ORMED BY:[place] [address] [address] [place], [place] [id number] MEDICAL DIRECTORMIKE CABAN M.D. Performed By: #### G LULS ####Point of Care testing, Glucose [Mass/Vol] 194 mg/dL Normal [facility] Comment on above: Result Comment: [place] om Glucose Reference Range is dependent on time and content of last meal. Glucose of more than 200 mg/dL in a nonstressed, ambulatory subject supports the diagnosis of Diabetes Mellitus. Performed By: #### G LULS ####Point of Care testing, Commemt1 Glu2: Cleaned Meter Normal The [facility] Comment on above: Result Comment: PERF ORMED BY:[place] [address] [address] [place], [place] [phone] MEDICAL DIRECTORMIKE CABAN M.D. Performed By: #### G NELI ####Point of Care testing, Glucose [Mass/Vol] 229 mg/dL Normal [facility] Comment on above: Result Comment: [place] Glucose Reference Range is dependent on time and content of last meal. Glucose of more than 200 mg/dL in a nonstressed, ambulatory subject supports the diagnosis of Diabetes Mellitus. Performed By: #### G NELI ####Point of Care testing, Glucose [Mass/volume] in Ser um or PlasmaOrdered By: Abdullahi Canchola on 10-11-2024 Glucose [Mass/Vol] Glucose [Mass/volume ] in Serum or Plasma High 70-100 [facility] Comment on above: ADA recommended refe rence rangeRandom Glucose Reference Range is dependent on time and content of last meal. Glucose of more than 200 mg/dL in a nonstressed, ambulatory subject supports the diagnosis of Diabetes Mellitus. Hematocrit Auto (Bld) [Volum e fraction]Ordered By: Abdullahi Canchola on 10-11-2024 Hematocrit (Bld) [Volume fraction] Hematocrit [Volume Fraction] of Blood by Automated count 38.8-50.0 [facility] Hemoglobin [Mass/volume] in BloodOrdered By: Abdullahi Canchola on 10-11-2024 Hemoglobin (Bld) [Mass/Vol] Hemoglobin [Mass/volume] in Blood 13.0-17.0 [facility] Iron [Mass/volume] in Serum or PlasmaOrdered By: Abdullahi Canchola on 10-11-2024 Iron [Mass/Vol] Iron [Mass/volume] i n Serum or Plasma Low 50-212 [facility] Iron and TIBC Profileon % Iron Saturation 9.1 % Low 20-50 [facility] Comment on above: Performed By: #### B MP, CK, HS TROP, FE and TIBC, LILA, MG, SCAN CBC ####[facility] [id number] [place] [address] [facility] Iron [Mass/Vol] 37 ug/dL Low 50-212 [facility] Comment on above: Performed By: #### B MP, CK, HS TROP, FE and TIBC, LILA, MG, SCAN CBC ####[facility] [id number] Total Iron Binding Capacity 407 ug/dL Normal 255-450 [facility] Comment on above: Performed By: #### B MP, CK, HS TROP, FE and TIBC, LILA, MG, SCAN CBC ####[facility] [id number] Transferrin [Mass/Vol] 291 mg/dL Normal 203-362 Th e [facility] Comment on above: Performed By: #### B MP, CK, HS TROP, FE and TIBC, LILA, MG, SCAN CBC ####[facility] [id number] Leukocytes [#/volume] correc jorge for nucleated erythrocytes in Blood by Automated counOrdered By: Abdullahi Canchola on 10-11-2024 WBC corrected for nucl RBC Auto (Bld) [#/Vol] Leukocytes [#/volume] corrected for nucleated erythrocytes in Blood by Automated coun 4.1-10.5 [facility] Lymphocytes Auto (Bld) [#/Vo l]Ordered By: Abdullahi Canchola on 10-11-2024 Lymphocytes (Bld) [#/Vol] Lymphocytes [#/volume] in Blood by Automated count 1.00-4.8 [facility] Lymphocytes/100 WBC Auto (Bl d)Ordered By: Abdullahi Canchola on 10-11-2024 Lymphocytes/100 WBC (Bld) Lymphocytes/100 leukocytes in Blood by Automated count . [facility] MCH Auto (RBC) [Entitic mass ]Ordered By: Abdullahi Canchola on 10-11-2024 MCH (RBC) [Entitic mass] MCH [Entitic mass] by Automated count Low 27.5-35.2 [facility] MCHC Auto (RBC) [Mass/Vol]Or dered By: Abdullahi Canchola on 10-11-2024 MCHC (RBC) [Mass/Vol] MCHC [Mass/volume] by Automated count 32.5-35.6 [facility] MCV Auto (RBC) [Entitic vol] Ordered By: Abdullahi Canchola on 10-11-2024 MCV (RBC) [Entitic vol] MCV [Entitic volume] by Automated count Low 83.5-101 [facility] Magnesiumon 10-11-2024 Magnesium [Mass/Vol] 1.8 mg/dL Low 1.9-2.7 [facility] Comment on above: Performed By: #### B MP, CK, HS TROP, FE and TIBC, LILA, MG, SCAN CBC ####[facility] [id number] [place] [id number] [facility] Magnesium [Mass/volume] in S ilia or PlasmaOrdered By: Abdullahi Canchola on 10-11-2024 Magnesium [Mass/Vol] Magnesium [Mass/vol ume] in Serum or Plasma Low 1.9-2.7 [facility] Microcytes LM Ql (Bld)Ordere d By: Abdullahi Canchola on 10-11-2024 Microcytes Ql (Bld) Microcytes [Presence ] in Blood by Light microscopy [facility] Monocytes Auto (Bld) [#/Vol] Ordered By: Abdullahi Canchola on 10-11-2024 Monocytes (Bld) [#/Vol] Automated blood monocyte count High 0.0-0.8 [facility] Monocytes/100 WBC Auto (Bld) Ordered By: Abdullahi Canchola on 10-11-2024 Monocytes/100 WBC (Bld) Automated monocyte % . [facility] Neutrophils Auto (Bld) [#/Vo l]Ordered By: Abdullahi Canchola on 10-11-2024 Neutrophils (Bld) [#/Vol] Neutrophils [#/volume] in Blood by Automated count 1.8-7.7 [facility] Neutrophils/100 WBC Auto (Bl d)Ordered By: Abdullahi Canchola on 10-11-2024 Neutrophils/100 WBC (Bld) Automated neutrophil % . [facility] No Panel InformationOrdered By: Abdullahi Canchola on 10-11-2024 Bedside Glucose Comment Glu2: cleaned meter [facility] Glu2: cleaned meter [facility] Estimated GFR (CKD-EPI) 29.874 mL/Min [facility] Pharm[facility] Creatinine Clearance (Chem 35.93 [facility] 29.874 mL/Min [facility] 35.93 [facility] Nucleated erythrocytes [Pres ence] in Blood by Automated countOrdered By: Abdullahi Canchola on 10-11-2024 Nucleated RBC Auto Ql (Bld) Nucleated erythrocytes [Presence] in Blood by Automated count 0-0.5 [facility] Ovalocytes [Presence] in Blo od by Light microscopyOrdered By: Abdullahi Canchola on 10-11-2024 Ovalocytes LM Ql (Bld) Ovalocyte detection [facility] Platelet adequacy [Presence] in Blood by Light microscopyOrdered By: Abdullahi Canchola on 10-11-2024 Platelets LM Ql (Bld) Platelet adequacy [Presence] in Blood by Light microscopy Normal [facility] Platelet mean volume Auto (B ld) [Entitic vol]Ordered By: Abdullahi Canchola on 10-11-2024 Platelet mean volume (Bld) [Entitic vol] Platelet mean volume [Entitic volume] in Blood by Automated count 6.6-10.1 [facility] Platelet morphology finding [Identifier] in BloodOrdered By: Abdullahi Canchola on 10-11-2024 Platelet morphology finding Nom (Bld) Platelet morphology finding [Identifier] in Blood [facility] Platelets Auto (Bld) [#/Vol] Ordered By: Abdullahi Canchola on 10-11-2024 Platelets (Bld) [#/Vol] Platelets [#/volume] in Blood by Automated count 150-450 [facility] Platelets Large [Presence] i n Blood by Light microscopyOrdered By: Abdullahi Canchola on 10-11-2024 Platelets Large LM Ql (Bld) Platelets Large [Presence] in Blood by Light microscopy [facility] Poikilocytosis [Presence] in Blood by Light microscopyOrdered By: Abdullahi Canchola on 10-11-2024 Poikilocytosis LM Ql (Bld) Poikilocytosis [Presence] in Blood by Light microscopy [facility] Polychromasia [Presence] in Blood by Light microscopyOrdered By: Abdullahi Canchola on 10-11-2024 Polychromasia LM Ql (Bld) Polychromasia [Presence] in Blood by Light microscopy [facility] Potassium [Moles/volume] in Serum or PlasmaOrdered By: Abdullahi Canchola on 10-11-2024 Potassium [Moles/Vol] Potassium [Moles/v olume] in Serum or Plasma 3.5-5.1 [facility] RBC Auto (Bld) [#/Vol]Ordere d By: Abdullahi Canchola on 10-11-2024 RBC (Bld) [#/Vol] Erythrocytes [#/volu me] in Blood by Automated count 3.90-5.60 [facility] Scan and CBCon 10-11-2024 Anisocytosis Ql (Bld) Marked Normal [facility] Comment on above: Performed By: #### B MP, CK, HS TROP, FE and TIBC, LILA, MG, SCAN CBC ####[address] Basophils (Bld) [#/Vol] 0.1 10*3/uL Normal 0.0-0.2 [facility] Comment on above: Performed By: #### B MP, CK, HS TROP, FE and TIBC, LILA, MG, SCAN CBC ####[address] Basophils/100 WBC (Bld) 1.3 % Normal . [facility] Comment on above: Performed By: #### B MP, CK, HS TROP, FE and TIBC, LILA, MG, SCAN CBC ####[address] Eosinophils (Bld) [#/Vol] 0.3 10*3/uL Normal 0.0-0.45 [facility] Comment on above: Performed By: #### B MP, CK, HS TROP, FE and TIBC, LILA, MG, SCAN CBC ####[address] Eosinophils/100 WBC (Bld) 4.0 % Normal . [facility] Comment on above: Performed By: #### B MP, CK, HS TROP, FE and TIBC, LILA, MG, SCAN CBC ####[address] Erythrocyte distribution width (RBC) [Ratio] 23.3 % High 12.0-14.8 [facility] Comment on above: Performed By: #### B MP, CK, HS TROP, FE and TIBC, LILA, MG, SCAN CBC ####[address] Hematocrit (Bld) [Volume fraction] 38.9 % Normal 38.8-50.0 [facility] Comment on above: Performed By: #### B MP, CK, HS TROP, FE and TIBC, LILA, MG, SCAN CBC ####[address] Hemoglobin (Bld) [Mass/Vol] 13.1 g/dL Normal 13.0-17.0 [facility] Comment on above: Performed By: #### B MP, CK, HS TROP, FE and TIBC, LILA, MG, SCAN CBC ####[address] Large Platelets Slight Normal [facility] Comment on above: Result Comment: PERF ORMED BY:[address] [place], [place] [phone] MEDICAL DIRECTORMIKE CABAN M.D. Performed By: #### B MP, CK, HS TROP, FE and TIBC, LILA, MG, SCAN CBC ####[address] Lymphocytes (Bld) [#/Vol] 2.0 10*3/uL Normal 1.00-4.8 [facility] Comment on above: Performed By: #### B MP, CK, HS TROP, FE and TIBC, LILA, MG, SCAN CBC ####[address] Lymphocytes/100 WBC (Bld) 25.5 % Normal . [facility] Comment on above: Performed By: #### B MP, CK, HS TROP, FE and TIBC, LILA, MG, SCAN CBC ####[address] MCH (RBC) [Entitic mass] 25.7 pg Low 27.5-35.2 [facility] Comment on above: Performed By: #### B MP, CK, HS TROP, FE and TIBC, LILA, MG, SCAN CBC ####[address] MCV (RBC) [Entitic vol] 76.5 fL Low 83.5-101 [facility] Comment on above: Performed By: #### B MP, CK, HS TROP, FE and TIBC, LILA, MG, SCAN CBC ####[address] Mean Corpuscular HGB Conc 33.6 g/dL Normal 32.5-35.6 [facility] Comment on above: Performed By: #### B MP, CK, HS TROP, FE and TIBC, LILA, MG, SCAN CBC ####[address] Microcytosis Moderate Normal [facility] Comment on above: Performed By: #### B MP, CK, HS TROP, FE and TIBC, LILA, MG, SCAN CBC ####[address] Monocytes (Bld) [#/Vol] 0.9 10*3/uL High 0.0-0.8 [facility] Comment on above: Performed By: #### B MP, CK, HS TROP, FE and TIBC, LILA, MG, SCAN CBC ####[address] Monocytes/100 WBC (Bld) 10.9 % Normal . [facility] Comment on above: Performed By: #### B MP, CK, HS TROP, FE and TIBC, LILA, MG, SCAN CBC ####[address] Neutrophils (Bld) [#/Vol] 4.6 10*3/uL Normal 1.8-7.7 [facility] Comment on above: Performed By: #### B MP, CK, HS TROP, FE and TIBC, LILA, MG, SCAN CBC ####[address] Neutrophils/100 WBC (Bld) 58.3 % Normal . [facility] Comment on above: Performed By: #### B MP, CK, HS TROP, FE and TIBC, LILA, MG, SCAN CBC ####[address] NRBC% 0.1 /100{WBC} Normal 0-0.5 [facility] Comment on above: Performed By: #### B MP, CK, HS TROP, FE and TIBC, LILA, MG, SCAN CBC ####[address] Ovalocytes Slight Normal [facility] Comment on above: Performed By: #### B MP, CK, HS TROP, FE and TIBC, LILA, MG, SCAN CBC ####[address] Platelet Estimate Normal Normal Normal [facility] Comment on above: Performed By: #### B MP, CK, HS TROP, FE and TIBC, LILA, MG, SCAN CBC ####[address] Platelet mean volume (Bld) [Entitic vol] 9.5 fL Normal 6.6-10.1 [facility] [facility] Comment on above: Performed By: #### B MP, CK, HS TROP, FE and TIBC, LILA, MG, SCAN CBC ####[address] Platelets (Bld) [#/Vol] 176 10*3/uL Normal 150-450 [facility] Comment on above: Performed By: #### B MP, CK, HS TROP, FE and TIBC, LILA, MG, SCAN CBC ####[address] Poikilocytosis Slight Normal [facility] Comment on above: Performed By: #### B MP, CK, HS TROP, FE and TIBC, LILA, MG, SCAN CBC ####[address] [place] [address] [place] Polychromasia Slight Normal [facility] Comment on above: Performed By: #### B MP, CK, HS TROP, FE and TIBC, LILA, MG, SCAN CBC ####[place] [address] RBC (Bld) [#/Vol] 5.09 10*6/uL Normal 3.90-5.60 [facility] Comment on above: Performed By: #### B MP, CK, HS TROP, FE and TIBC, LILA, MG, SCAN CBC ####[place] [address] [place] [id number] [facility] WBC (Bld) [#/Vol] 7.9 10*3/uL Normal 4.1-10.5 The [facility] Comment on above: Performed By: #### B MP, CK, HS TROP, FE and TIBC, LILA, MG, SCAN CBC ####[place] [id number] [address] Serum or plasma anion gap de terminationOrdered By: Abdullahi Canchola on 10-11-2024 Anion gap [Moles/Vol] Serum or plasma an ion gap determination High 6.0-15.0 [facility] Serum or plasma iron binding capacity measurement (mass/volume)Ordered By: Abdullahi Canchola on 10-11-2024 Iron binding capacity [Mass/Vol] Iron binding capacity [Mass/volume] in Serum or Plasma 255-450 [facility] Serum or plasma iron saturat ion measurement (mass fraction)Ordered By: Abdullahi Canchola on 10-11-2024 Iron saturation [Mass fraction] Iron saturation [Mass Fraction] in Serum or Plasma Low 20-50 [facility] Sodium [Moles/volume] in Ser um or PlasmaOrdered By: Abdullahi Canchola on 10-11-2024 Sodium [Moles/Vol] Sodium [Moles/volume ] in Serum or Plasma 136-145 [facility] Transferrin [Mass/volume] in Serum or PlasmaOrdered By: Abdullahi Canchola on 10-11-2024 Transferrin [Mass/Vol] Transferrin [Mass /volume] in Serum or Plasma 203-362 [facility] Troponin I High Sensitivityo n 05-09-2025 Troponin I High Sensitivity 5 Normal 0-20 [facility] Comment on above: Result Comment: The Troponin units of report have been changed to meet the Chest Pain Accreditation requirement, element EC5.M1l2. Troponin units are changed from pg/ml to ng/L. Also, the decimal is removed and results are in whole numbers.PERFORMED BY:[facility] MUKULDarrianMaryINAV[place], [place] [phone] MEDICAL DIRECTORMIKE CABAN M.D. Performed By: #### B MP, CK, HS TROP, FE and TIBC, LILA, MG, SCAN CBC ####[facility] [place] [address] [facility] Troponin I.cardiac [Mass/vol ume] in Serum or Plasma by Detection limit <= 0.01 ng/Ordered By: Abdullahi Canchola on 10-11-2024 Troponin I.cardiac DL <= 0.01 ng/mL [Mass/Vol] Troponin I.cardiac [Mass/volume] in Serum or Plasma by Detection limit <= 0.01 ng/ 0-20 [facility] Comment on above: The Troponin units o [...] [Mass/volume] in Serum or Plasma High 7-25 [facility] WBC Auto (Bld) [#/Vol]Ordere d By: Abdullahi Canchola on 10-11-2024 WBC (Bld) [#/Vol] Leukocytes [#/volume ] in Blood by Automated count 4.1-10.5 [facility] Anisocytosis LM Ql (Bld)Orde red By: Jez Dominguez on 10-10-2024 Anisocytosis Ql (Bld) Anisocytosis [Pres ence] in Blood by Light microscopy [facility] B-Type Natriuretic Peptideon 10-10-2024 Natriuretic peptide B (Bld) [Mass/Vol] 17.0 pg/mL Normal 5-100 [facility] Comment on above: Result Comment: PERF ORMED BY:[address] [place], [place] [phone] MEDICAL DIRECTORMIKE CABAN M.D. Performed By: #### H S TROP, BNP, PT, BMP, SCAN CBC, CK ####[place] [id number] [facility] Basic Metabolic Panelon 05-0 Anion gap [Moles/Vol] 15.5 mmol/L High 6.0-15.0 [facility] Comment on above: Performed By: #### H S TROP, BNP, PT, BMP, SCAN CBC, CK ####[place] [id number] [facility] Calcium [Mass/Vol] 9.7 mg/dL Normal 8.6-10.3 [facility] Comment on above: Performed By: #### H S TROP, BNP, PT, BMP, SCAN CBC, CK ####[place] [id number] [facility] Chloride [Moles/Vol] 98 mmol/L Normal 98-107 [facility] Comment on above: Performed By: #### H S TROP, BNP, PT, BMP, SCAN CBC, CK ####[place] [id number] [facility] CO2 [Moles/Vol] 25.6 mmol/L Normal 21.0-31.0 [facility] Comment on above: Performed By: #### H S TROP, BNP, PT, BMP, SCAN CBC, CK ####[place] [id number] [facility] Creatinine [Mass/Vol] 2.51 mg/dL High 0.70-1.30 [facility] Comment on above: Performed By: #### H S TROP, BNP, PT, BMP, SCAN CBC, CK ####[place] [id number] [facility] Creatinine Clr Calc Pharmacy 34.78 Normal [facility] Comment on above: Result Comment: PERF ORMED BY:[address] [place], [place] [phone] MEDICAL DIRECTORMIKE CABAN M.D. Performed By: #### H S TROP, BNP, PT, BMP, SCAN CBC, CK ####[place] [address] [place] [address] [facility] Estimated GFR 28.735 mL/Min Normal [facility] Comment on above: Performed By: #### H S TROP, BNP, PT, BMP, SCAN CBC, CK ####[place] [address] [place] [address] [facility] Glucose [Mass/Vol] 278 mg/dL High 70-100 [facility] Comment on above: Result Comment: [facility] Glucose Reference Range is dependent on time and content of last meal. Glucose of more than 200 mg/dL in a nonstressed, ambulatory subject supports the diagnosis of Diabetes Mellitus. ADA recommended reference range Performed By: #### H S TROP, BNP, PT, BMP, SCAN CBC, CK ####[place] [address] [place] [address] [facility] Potassium [Moles/Vol] 4.1 mmol/L Normal 3.5-5.1 [facility] Comment on above: Performed By: #### H S TROP, BNP, PT, BMP, SCAN CBC, CK ####[place] [address] [place] [address] [facility] Sodium [Moles/Vol] 135 mmol/L Low 136-145 [facility] Comment on above: Performed By: #### H S TROP, BNP, PT, BMP, SCAN CBC, CK ####[place] [address] [place] [address] [facility] Urea nitrogen [Mass/Vol] 41 mg/dL High 7-25 [facility] Comment on above: Performed By: #### H S TROP, BNP, PT, BMP, SCAN CBC, CK ####[facility] [place] [address] [facility] Basophils Auto (Bld) [#/Vol] Ordered By: Jez Dominguez on 10-10-2024 Basophils (Bld) [#/Vol] Automated basophil count 0.0-0.2 [facility] Basophils/100 WBC Auto (Bld) Ordered By: Jez Dominguez on 10-10-2024 Basophils/100 WBC (Bld) Automated basophil % . [facility] Calcium [Mass/volume] in Ser um or PlasmaOrdered By: Jez Dominguez on 10-10-2024 Calcium [Mass/Vol] Calcium [Mass/volume ] in Serum or Plasma 8.6-10.3 [facility] Carbon dioxide, total [Moles /volume] in Serum or PlasmaOrdered By: Jez Dominguez on 10-10-2024 CO2 [Moles/Vol] Carbon dioxide, tota l [Moles/volume] in Serum or Plasma 21.0-31.0 [facility] Chloride [Moles/volume] in S ilia or PlasmaOrdered By: Jez Dominguez on 10-10-2024 Chloride [Moles/Vol] Chloride [Moles/vol ume] in Serum or Plasma 98-107 [facility] Creatine Kinaseon 10-10-2024 CK [Catalytic activity/Vol] 101 U/L Normal 30-223 [facility] Comment on above: Performed By: #### H S TROP, CK ####[facility] [id number] CK [Catalytic activity/Vol] 126 U/L Normal 30-223 [facility] Comment on above: Performed By: #### H S TROP, BNP, PT, BMP, SCAN CBC, CK ####[facility] [id number] Creatine kinase [Enzymatic a ctivity/volume] in Serum or PlasmaOrdered By: Jez Dominguez on 10-10-2024 CK [Catalytic activity/Vol] Creatine kinase [Enzymatic activity/volume] in Serum or Plasma 30-223 [facility] Creatinine [Mass/volume] in Serum or PlasmaOrdered By: Jez Dominguez on 10-10-2024 Creatinine [Mass/Vol] Creatinine [Mass/v olume] in Serum or Plasma High 0.70-1.30 [facility] ECG 12 lead ECGon 10-10-2024 ECG 12 lead ECG Normal [facility] ECG 12 lead ECG Normal [facility] ECG 12 lead ECG Normal [facility] Eosinophils Auto (Bld) [#/Vo l]Ordered By: Jez Dominguez on 10-10-2024 Eosinophils (Bld) [#/Vol] Automated eosinophil count 0.0-0.45 [facility] Eosinophils/100 WBC Auto (Bl d)Ordered By: Jez Dominguez on 10-10-2024 Eosinophils/100 WBC (Bld) Automated eosinophil % . [facility] Erythrocyte distribution wid th Auto (RBC) [Ratio]Ordered By: Jez Dominguez on 10-10-2024 Erythrocyte distribution width (RBC) [Ratio] Erythrocyte distribution width [Ratio] by Automated count High 12.0-14.8 [facility] Erythrocyte morphology findi ng [Identifier] in BloodOrdered By: Jez Dominguez on 10-10-2024 RBC morphology finding Nom (Bld) RBC morphology [facility] Glucose Poct Glucometerson 0 10-10-2024 Glucose [Mass/Vol] 204 mg/dL Normal [facility] Comment on above: Result Comment: [place] Glucose Reference Range is dependent on time and content of last meal. Glucose of more than 200 mg/dL in a nonstressed, ambulatory subject supports the diagnosis of Diabetes Mellitus.PERFORMED BY:[place] [address] [place], [place] [phone] MEDICAL DIRECTORMIKE CABAN M.D. Performed By: #### G NELI ####Point of Care testing, Glucose [Mass/volume] in Ser um or PlasmaOrdered By: Jez Dominguez on 10-10-2024 Glucose [Mass/Vol] Glucose [Mass/volume ] in Serum or Plasma High 70-100 [facility] Comment on above: ADA recommended refe rence rangeRandom Glucose Reference Range is dependent on time and content of last meal. Glucose of more than 200 mg/dL in a nonstressed, ambulatory subject supports the diagnosis of Diabetes Mellitus. Hematocrit Auto (Bld) [Volum e fraction]Ordered By: Jez Dominguez on 10-10-2024 Hematocrit (Bld) [Volume fraction] Hematocrit [Volume Fraction] of Blood by Automated count 38.8-50.0 [facility] Hemoglobin [Mass/volume] in BloodOrdered By: Jez Dominguez on 10-10-2024 Hemoglobin (Bld) [Mass/Vol] Hemoglobin [Mass/volume] in Blood 13.0-17.0 [facility] INR in Platelet poor plasma by Coagulation assayOrdered By: Jez Dominguez on 10-10-2024 INR Coag (PPP) [Relative time] INR in Platelet poor plasma by Coagulation assay [facility] Comment on [...] erythrocytes in Blood by Automated coun 4.1-10.5 [facility] Lymphocytes Auto (Bld) [#/Vo l]Ordered By: Jez Dominguez on 10-10-2024 Lymphocytes (Bld) [#/Vol] Lymphocytes [#/volume] in Blood by Automated count 1.00-4.8 [facility] Lymphocytes/100 WBC Auto (Bl d)Ordered By: Jez Dominguez on 10-10-2024 Lymphocytes/100 WBC (Bld) Lymphocytes/100 leukocytes in Blood by Automated count . [facility] MCH Auto (RBC) [Entitic mass ]Ordered By: Jez Dominguez on 10-10-2024 MCH (RBC) [Entitic mass] MCH [Entitic mass] by Automated count Low 27.5-35.2 [facility] MCHC Auto (RBC) [Mass/Vol]Or dered By: Jez Dominguez on 10-10-2024 MCHC (RBC) [Mass/Vol] MCHC [Mass/volume] by Automated count 32.5-35.6 [facility] MCV Auto (RBC) [Entitic vol] Ordered By: Jez Dominguez on 10-10-2024 MCV (RBC) [Entitic vol] MCV [Entitic volume] by Automated count Low 83.5-101 [facility] Microcytes LM Ql (Bld)Ordere d By: Jez Dominguez on 10-10-2024 Microcytes Ql (Bld) Microcytes [Presence ] in Blood by Light microscopy [facility] Monocyte distribution width [Entitic volume] in Blood by AutomatedOrdered By: Jez Dominguez on 10-10-2024 Monocyte distribution width Auto (Bld) [Entitic vol] Monocyte distribution width [Entitic volume] in Blood by Automated 0.00-20.00 [facility] Monocytes Auto (Bld) [#/Vol] Ordered By: Jez Dominguez on 10-10-2024 Monocytes (Bld) [#/Vol] Automated blood monocyte count 0.0-0.8 [facility] Monocytes/100 WBC Auto (Bld) Ordered By: Jez Dominguez on 10-10-2024 Monocytes/100 WBC (Bld) Automated monocyte % . [facility] Natriuretic peptide B [Mass/ Vol]Ordered By: Jez Dominguez on 10-10-2024 Natriuretic peptide B (Bld) [Mass/Vol] BNP ser/plas 5-100 [facility] Neutrophils Auto (Bld) [#/Vo l]Ordered By: Jez Dominguez on 10-10-2024 Neutrophils (Bld) [#/Vol] Neutrophils [#/volume] in Blood by Automated count 1.8-7.7 [facility] Neutrophils/100 WBC Auto (Bl d)Ordered By: Jez Dominguez on 10-10-2024 Neutrophils/100 WBC (Bld) Automated neutrophil % . [facility] No Panel InformationOrdered By: Jez Dominguez on 10-10-2024 Estimated GFR (CKD-EPI) 28.735 mL/Min [facility] Creatinine Clearance (Chem 34.78 [facility] Nucleated erythrocytes [Pres ence] in Blood by Automated countOrdered By: Jez Dominguez on 10-10-2024 Nucleated RBC Auto Ql (Bld) Nucleated erythrocytes [Presence] in Blood by Automated count 0-0.5 [facility] Platelet adequacy [Presence] in Blood by Light microscopyOrdered By: Jez Dominguez on 10-10-2024 Platelets LM Ql (Bld) Platelet adequacy [Presence] in Blood by Light microscopy Normal [facility] Platelet mean volume Auto (B ld) [Entitic vol]Ordered By: Jez Dominguez on 10-10-2024 Platelet mean volume (Bld) [Entitic vol] Platelet mean volume [Entitic volume] in Blood by Automated count 6.6-10.1 [facility] Platelet morphology finding [Identifier] in BloodOrdered By: Jez Dominguez on 10-10-2024 Platelet morphology finding Nom (Bld) Platelet morphology finding [Identifier] in Blood Normal [facility] Platelets Auto (Bld) [#/Vol] Ordered By: Jez Dominguez on 10-10-2024 Platelets (Bld) [#/Vol] Platelets [#/volume] in Blood by Automated count 150-450 [facility] Poikilocytosis [Presence] in Blood by Light microscopyOrdered By: Jez Dominguez on 10-10-2024 Poikilocytosis LM Ql (Bld) Poikilocytosis [Presence] in Blood by Light microscopy [facility] Polychromasia [Presence] in Blood by Light microscopyOrdered By: Jez Dominguez on 10-10-2024 Polychromasia LM Ql (Bld) Polychromasia [Presence] in Blood by Light microscopy [facility] Potassium [Moles/volume] in Serum or PlasmaOrdered By: Jez Dominguez on 10-10-2024 Potassium [Moles/Vol] Potassium [Moles/v olume] in Serum or Plasma 3.5-5.1 [facility] Prothrombin Time INRon 10-10 INR Coag (PPP) [Relative time] 1.0 {INR} Normal [facility] Comment on above: Result [...] with mechanical heart valves: 3 - 4.5PERFORMED BY:[place] [address] [place], [place] [phone] MEDICAL DIRECTORMIKE CABAN M.D. Performed By: #### H S TROP, BNP, PT, BMP, SCAN CBC, CK ####[place] [address] [place] [id number] [facility] PT Coag (PPP) [Time] 11.4 s Normal 9.0-12.9 [facility] Comment on above: Result Comment: A he matocrit value greater than 55% may lead to inaccurate results in coagulation testing. Patients having hematocrit values >55% require a special collection tube for coagulation studies. Please contact the laboratory at [phone] for redraw instructions. Performed By: #### H S TROP, BNP, PT, BMP, SCAN CBC, CK ####[place] [address] [place] [id number] [facility] Prothrombin time (PT)Ordered By: Jez Dominguez on 10-10-2024 PT Coag (PPP) [Time] Prothrombin time (PT) 9.0- 12.9 [facility] Comment on above: A hematocrit value g reater than 55% may lead to inaccurate results in coagulation testing. Patients having hematocrit values >55% require a special collection tube for coagulation studies. Please contact the laboratory at [phone] for redraw instructions. RBC Auto (Bld) [#/Vol]Ordere d By: Jez Dominguez on 10-10-2024 RBC (Bld) [#/Vol] Erythrocytes [#/volu me] in Blood by Automated count High 3.90-5.60 [facility] Scan and CBCon 10-10-2024 Anisocytosis Ql (Bld) Marked Normal [facility] Comment on above: Performed By: #### H S TROP, BNP, PT, BMP, SCAN CBC, CK ####[place] [address] [place] [id number] [facility] Basophils (Bld) [#/Vol] 0.1 10*3/uL Normal 0.0-0.2 [facility] Comment on above: Performed By: #### H S TROP, BNP, PT, BMP, SCAN CBC, CK ####[place] [id number] [place] [address] Basophils/100 WBC (Bld) 1.3 % Normal . [facility] Comment on above: Performed By: #### H S TROP, BNP, PT, BMP, SCAN CBC, CK ####[address] Eosinophils (Bld) [#/Vol] 0.3 10*3/uL Normal 0.0-0.45 [facility] Comment on above: Performed By: #### H S TROP, BNP, PT, BMP, SCAN CBC, CK ####[address] Eosinophils/100 WBC (Bld) 4.0 % Normal . [facility] Comment on above: Performed By: #### H S TROP, BNP, PT, BMP, SCAN CBC, CK ####[address] Erythrocyte distribution width (RBC) [Ratio] 23.4 % High 12.0-14.8 [facility] Comment on above: Performed By: #### H S TROP, BNP, PT, BMP, SCAN CBC, CK ####[address] Hematocrit (Bld) [Volume fraction] 42.4 % Normal 38.8-50.0 [facility] Comment on above: Performed By: #### H S TROP, BNP, PT, BMP, SCAN CBC, CK ####[address] Hemoglobin (Bld) [Mass/Vol] 14.4 g/dL Normal 13.0-17.0 [facility] Comment on above: Performed By: #### H S TROP, BNP, PT, BMP, SCAN CBC, CK ####[address] Lymphocytes (Bld) [#/Vol] 2.0 10*3/uL Normal 1.00-4.8 [facility] Comment on above: Performed By: #### H S TROP, BNP, PT, BMP, SCAN CBC, CK ####[address] Lymphocytes/100 WBC (Bld) 23.4 % Normal . [facility] Comment on above: Performed By: #### H S TROP, BNP, PT, BMP, SCAN CBC, CK ####[address] MCH (RBC) [Entitic mass] 25.6 pg Low 27.5-35.2 [facility] Comment on above: Performed By: #### H S TROP, BNP, PT, BMP, SCAN CBC, CK ####[address] MCV (RBC) [Entitic vol] 75.5 fL Low 83.5-101 [facility] Comment on above: Performed By: #### H S TROP, BNP, PT, BMP, SCAN CBC, CK ####[address] Mean Corpuscular HGB Conc 33.9 g/dL Normal 32.5-35.6 [facility] Comment on above: Performed By: #### H S TROP, BNP, PT, BMP, SCAN CBC, CK ####[address] Microcytosis Marked Normal [facility] Comment on above: Performed By: #### H S TROP, BNP, PT, BMP, SCAN CBC, CK ####[address] Monocytes (Bld) [#/Vol] 0.8 10*3/uL Normal 0.0-0.8 [facility] Comment on above: Performed By: #### H S TROP, BNP, PT, BMP, SCAN CBC, CK ####[address] Monocytes/100 WBC (Bld) 16.66 % Normal 0.00-20.00 [facility] Comment on above: Performed By: #### H S TROP, BNP, PT, BMP, SCAN CBC, CK ####[address] [place] [address] [place] Monocytes/100 WBC (Bld) 9.5 % Normal . [facility] Comment on above: Performed By: #### H S TROP, BNP, PT, BMP, SCAN CBC, CK ####[address] Neutrophils (Bld) [#/Vol] 5.3 10*3/uL Normal 1.8-7.7 [facility] Comment on above: Performed By: #### H S TROP, BNP, PT, BMP, SCAN CBC, CK ####[address] Neutrophils/100 WBC (Bld) 61.8 % Normal . [facility] Comment on above: Performed By: #### H S TROP, BNP, PT, BMP, SCAN CBC, CK ####[address] NRBC% 0.2 /100{WBC} Normal 0-0.5 [facility] Comment on above: Performed By: #### H S TROP, BNP, PT, BMP, SCAN CBC, CK ####[address] Platelet Estimate Normal Normal Normal [facility] Comment on above: Performed By: #### H S TROP, BNP, PT, BMP, SCAN CBC, CK ####[place] [id number] [facility] Platelet mean volume (Bld) [Entitic vol] 9.8 fL Normal 6.6-10.1 [facility] Comment on above: Performed By: #### H S TROP, BNP, PT, BMP, SCAN CBC, CK ####[place] [id number] [facility] Platelet Morphology Normal Normal Normal The [facility] Comment on above: Result Comment: PERF ORMED BY:[address] [place], [place] [phone] MEDICAL DIRECTORMIKE CABAN M.D. Performed By: #### H S TROP, BNP, PT, BMP, SCAN CBC, CK ####[place] [id number] Platelets (Bld) [#/Vol] 203 10*3/uL Normal 150-450 [facility] Comment on above: Performed By: #### H S TROP, BNP, PT, BMP, SCAN CBC, CK ####[address] Poikilocytosis Slight Normal [facility] Comment on above: Performed By: #### H S TROP, BNP, PT, BMP, SCAN CBC, CK ####[place] [id number] Polychromasia Slight Normal [facility] Comment on above: Performed By: #### H S TROP, BNP, PT, BMP, SCAN CBC, CK ####[address] RBC (Bld) [#/Vol] 5.62 10*6/uL High 3.90-5.[address] [facility] Comment on above: Performed By: #### H S TROP, BNP, PT, BMP, SCAN CBC, CK ####[address] WBC (Bld) [#/Vol] 8.7 10*3/uL Normal 4.1-10.5 [facility] Comment on above: Performed By: #### H S TROP, BNP, PT, BMP, SCAN CBC, CK ####[address] Serum or plasma anion gap de terminationOrdered By: Jez Dominguez on 10-10-2024 Anion gap [Moles/Vol] Serum or plasma an ion gap determination High 6.0-15.0 [facility] Sodium [Moles/volume] in Ser um or PlasmaOrdered By: Jez Dominguez on 10-10-2024 Sodium [Moles/Vol] Sodium [Moles/volume ] in Serum or Plasma Low 136-145 [facility] Troponin I High Sensitivityo n 10-10-2024 Troponin I High Sensitivity 6 Normal 0-20 [facility] Comment on above: Result Comment: The Troponin units of report have been changed to meet the Chest Pain Accreditation requirement, element EC5.M1l2. Troponin units are changed from pg/ml to ng/L. Also, the decimal is removed and results are in whole numbers.PERFORMED BY:[address] [place], [place] [phone] MEDICAL DIRECTORMIKE NABEELALEXA Virk Performed By: #### H S TROP, CK ####[address] [address] [facility] Troponin I High Sensitivity 6 Normal 0-20 [facility] Comment on above: Order Comment: Result Comment: The Troponin units of report have been changed to meet the Chest Pain Accreditation requirement, element EC5.M1l2. Troponin units are changed from pg/ml to ng/L. Also, the decimal is removed and results are in whole numbers.PERFORMED BY:[address], [place] [phone] MEDICAL DIRECTORMIKE NABEELATRIUM HEALTH UNIONLIBORIO Virk Performed By: #### H S TROP ####[place] [id number] [facility] Troponin I High Sensitivity 6 Normal 0-20 [facility] Comment on above: Result Comment: The Troponin units of report have been changed to meet the Chest Pain Accreditation requirement, element EC5.M1l2. Troponin units are changed from pg/ml to ng/L. Also, the decimal is removed and results are in whole numbers.PERFORMED BY:[address], [place] [id number] MEDICAL DIRECTORMIKE LEESALEXA Virk Performed By: #### H S TROP, BNP, PT, BMP, SCAN CBC, CK ####[address] [address] [facility] Troponin I.cardiac [Mass/vol ume] in Serum or Plasma by Detection limit <= 0.01 ng/Ordered By: Jez Dominguez on 10-10-2024 Troponin I.cardiac DL <= 0.01 ng/mL [Mass/Vol] Troponin I.cardiac [Mass/volume] in Serum or Plasma by Detection limit <= 0.01 ng/ 0-20 [facility] Comment on above: The Troponin units o [...] [Mass/volume] in Serum or Plasma High 7-25 [facility] WBC Auto (Bld) [#/Vol]Ordere d By: Jez Dominguez on 10-10-2024 WBC (Bld) [#/Vol] Leukocytes [#/volume ] in Blood by Automated count 4.1-10.5 [facility] X-ray reportOrdered By: Олег Oscar on 10-10-2024 Study report [facility] [place] [address] XRay Report Signed Patient: Myra Pickard SR MR#: [id number] : 1965 Acct:[id number] Age/Sex: 59 / M ADM Date: Loc: [...] MD 10/10/24 1509 Signed By: 10/10/24 151 [facility] Work Phone: XR chest 2V*on 10-10-2024 XR chest 2V* Normal [facility] Ambulatory Visit Summaryon 0 09-27-2024 [...] Yeyo ROWE MD Where: [facility] [address] [place] [address]- You Need to Schedule the Following Appointments Follow Up with SOLEDAD HERRERA, Yeyo Blum, URL When: Where: [address] [place] [id number]- Medications What How Much When Instructions Unchanged tamsulosin (tamsulosin 0.4 mg Cap) 1 Capsules By Mouth 2 times a day Pickup at [facility]/pharmacy #[id number] Unchanged albuterol (ProAir HFA) Inhalation Every 6 [...] day Cont (more content not included)... Normal [facility] Ambulatory Visit Summary Ambulatory Visit [...] MARYBEL VANG PA-C Where: [facility] [address] [place] [address]- You Need to Schedule the Following Appointments Follow Up with SOLEDAD HERRERA, ROSALIA Garcia When: Where: [address] [place] [id number]- Medications What How Much When Instructions Unchanged [...] physician if (more content not included)... Normal [facility] Urology Office/Clinic Noteon 09-27-2024 Urology [...] weeks in November 2022. Pt presented to [facility] ER 07/24/24 with sudden onset scrotal/groin pain. Labs wnl. CT and US without torsion, hernia, obvious internal infection. Did show small R hydrocele, <1cm L epididymal cyst, and small Niranjan varicocele. MD reported mild erythema to scrotum c/w cutaneous fungal infection. Rx'd Lotrisone. No suspicion for cellulitis or Skylar's. Tx'd with Doxycycline 100mg bid x 3 [...] 5. Antiplatelet or antithrombotic long-term use (Z79.02: long term (current) use of antithrombotics/antiplate lets) On Plavix. Hx of MD. Elevated risk for periop complications in the future. Follow-up With When Contact Information SOLEDAD HERRERA, Yeyo Blum, URL [address] [place] [address]- Additional Instructions: 4 mos w/ PVR Patient [...] A Fibromyalgi (more content not included)... Normal [facility] Comment on above: Result Comment: Elec tronically Signed By: Yeyo ROWE MD\.br\Date and Time Signed: 09/27/24 12:03 EDT\.br\Electronically Co-Signed By: Mattie Foster.br\Date and Time Co-Signed: 09/27/24 12:00 EDT HbA1c HPLC (Bld) [Mass fract ion]on 08-30-2024 HbA1c (Bld) [Mass fraction] Hemoglobin A1c/Hemoglobin.total in Blood by HPLC [facility] Alanine aminotransferase [En zymatic activity/volume] in Serum or PlasmaOrdered By: Kevon Viera on 08-13-2024 ALT [Catalytic activity/Vol] Alanine aminotransferase [Enzymatic activity/volume] in Serum or Plasma 7-52 [facility] Albumin [Mass/volume] in Ser um or Plasma by Bromocresol green (BCG) dye binding methoOrdered By: Kevon Viera on 08-13-2024 Albumin BCG dye [Mass/Vol] Albumin [Mass/volume] in Serum or Plasma by Bromocresol green (BCG) dye binding metho Low 3.5-5.7 [facility] Alkaline phosphatase [Enzyma tic activity/volume] in Serum or PlasmaOrdered By: Kevon Viera on 08-13-2024 ALP [Catalytic activity/Vol] Alkaline phosphatase [Enzymatic activity/volume] in Serum or Plasma 34-104 [facility] Aspartate aminotransferase [ Enzymatic activity/volume] in Serum or PlasmaOrdered By: Kevon Viera on 08-13-2024 AST [Catalytic activity/Vol] Aspartate aminotransferase [Enzymatic activity/volume] in Serum or Plasma Low 13-39 [facility] Bilirubin.total [Mass/volume ] in Serum or PlasmaOrdered By: Kevon Bazzir on 08-13-2024 Bilirubin [Mass/Vol] Bilirubin.total [Mass/volume] in Serum or Plasma 0.3-1.0 [facility] Calcium [Mass/volume] in Ser um or PlasmaOrdered By: Obshelly Haydenomar on 08-13-2024 Calcium [Mass/Vol] Calcium [Mass/volume ] in Serum or Plasma Low 8.6-10.3 [facility] Carbon dioxide, total [Moles /volume] in Serum or PlasmaOrdered By: Obshelly Haydenomar on 08-13-2024 CO2 [Moles/Vol] Carbon dioxide, tota l [Moles/volume] in Serum or Plasma 21.0-31.0 [facility] Chloride [Moles/volume] in S ilia or PlasmaOrdered By: Obshelly Haydenomar on 08-13-2024 Chloride [Moles/Vol] Chloride [Moles/vol ume] in Serum or Plasma High 98-107 [facility] Comprehensive Metabolic Pane guy 08-13-2024 Albumin [Mass/Vol] 3.4 g/dL Low 3.5-5.7 [facility] Comment on above: Performed By: #### C DANA, CMP ####[place] [address] Albumin/Globulin [Mass ratio] 1.4 {ratio} Normal [facility] Comment on above: Performed By: #### C DANA, CMP ####[place] [address] [place] [phone] [facility] ALP [Catalytic activity/Vol] 93 U/L Normal 34-104 [facility] Comment on above: Performed By: #### C DANA, CMP ####[place] [address] [place] [id number] [facility] ALT [Catalytic activity/Vol] 9 U/L Normal 7-52 [facility] Comment on above: Performed By: #### C DANA, CMP ####[place] [address] [place] [address] [facility] Anion gap [Moles/Vol] 10.7 mmol/L Normal 6.0-15.0 [facility] e [facility] Comment on above: Performed By: #### C DANA, CMP ####[place] [id number] [facility] AST [Catalytic activity/Vol] 12 U/L Low 13-39 [facility] Comment on above: Performed By: #### C DANA, CMP ####[place] [id number] [facility] Bilirubin [Mass/Vol] 0.3 mg/dL Normal 0.3-1.0 [facility] Comment on above: Performed By: #### C DANA, CMP ####[address] Calcium [Mass/Vol] 7.5 mg/dL Low 8.6-10.3 [facility] Comment on above: Performed By: #### C DANA, CMP ####[address] Chloride [Moles/Vol] 111 mmol/L High 98-107 [facility] Comment on above: Performed By: #### C DANA, CMP ####[place] [id number] [facility] CO2 [Moles/Vol] 21.5 mmol/L Normal 21.0-31.0 [facility] Comment on above: Performed By: #### C DANA, CMP ####[place] [id number] [facility] Creatinine [Mass/Vol] 1.59 mg/dL High 0.70-1.30 [facility] Comment on above: Performed By: #### C DANA, CMP ####[place] [id number] [facility] Creatinine Clr Calc Pharmacy 54.91 Normal [facility] Comment on above: Result Comment: PERF ORMED BY:[address] [place], [place] [phone] MEDICAL DIRECTORMIKE CABAN M.D. Performed By: #### C DANA, CMP ####[place] [id number] [facility] Estimated GFR 49.698 mL/Min Normal [facility] Comment on above: Performed By: #### C DANA, CMP ####[place] [address] [place] [address] [facility] Globulin (S) [Mass/Vol] 2.4 g/dL Normal [facility] Comment on above: Performed By: #### C DANA, CMP ####[place] [id number] [facility] Glucose [Mass/Vol] 140 mg/dL High 70-100 [facility] Comment on above: Result Comment: [place] Glucose Reference Range is dependent on time and content of last meal. Glucose of more than 200 mg/dL in a nonstressed, ambulatory subject supports the diagnosis of Diabetes Mellitus. ADA recommended reference range Performed By: #### C DANA, CMP ####[place] [id number] [facility] Potassium [Moles/Vol] 4.2 mmol/L Normal 3.5-5.1 [facility] Comment on above: Performed By: #### C DANA, CMP ####[place] [id number] [facility] Protein [Mass/Vol] 5.8 g/dL Low 6.4-8.9 [facility] Comment on above: Performed By: #### C DANA, CMP ####[place] [id number] [facility] Sodium [Moles/Vol] 139 mmol/L Normal 136-145 [facility] Comment on above: Performed By: #### C DANA, CMP ####[place] [id number] [facility] Urea nitrogen [Mass/Vol] 13 mg/dL Normal 7-25 [facility] Comment on above: Performed By: #### C DANA, CMP ####[address] [place] [address] [place] Creatinine [Mass/volume] in Serum or PlasmaOrdered By: Kevon Viera on 08-13-2024 Creatinine [Mass/Vol] Creatinine [Mass/v olume] in Serum or Plasma High 0.70-1.30 [facility] Erythrocyte distribution wid th Auto (RBC) [Ratio]Ordered By: Kevon Viera on 08-13-2024 Erythrocyte distribution width (RBC) [Ratio] Erythrocyte distribution width [Ratio] by Automated count High 12.0-14.8 [facility] Globulin Calc (S) [Mass/Vol] Ordered By: Kevon Viera on 08-13-2024 Globulin (S) [Mass/Vol] Serum globulin measurement by calculation (mass/volume) [facility] Glucose Glucometer (BldC) [M ass/Vol]Ordered By: Kevon Viera on 08-13-2024 Glucose [Mass/Vol] Capillary blood gluc ose measurement by glucometer (mass/volume) [facility] Comment on above: Random Glucose Refer ence Range is dependent on time and content of last meal. Glucose of more than 200 mg/dL in a nonstressed, ambulatory subject supports the diagnosis of Diabetes Mellitus. Glucose Poct Glucometerson 0 08-13-2024 Glucose [Mass/Vol] 150 mg/dL Normal [facility] Comment on above: Result Comment: [facility] Glucose Reference Range is dependent on time and content of last meal. Glucose of more than 200 mg/dL in a nonstressed, ambulatory subject supports the diagnosis of Diabetes Mellitus.PERFORMED BY:[place] [address] [place], [place] [id number] MEDICAL DIRECTORMIKE CABAN M.D. Performed By: #### G LULS ####Point of Care testing, Glucose [Mass/Vol] 173 mg/dL Normal [facility] Comment on above: Result Comment: [facility] Glucose Reference Range is dependent on time and content of last meal. Glucose of more than 200 mg/dL in a nonstressed, ambulatory subject supports the diagnosis of Diabetes Mellitus.PERFORMED BY:[place] [address] [place], [place] [phone] MEDICAL DIRECTORMIKE CABAN M.D. Performed By: #### Ines QUINTEROS ####Point of Care testing, Glucose [Mass/volume] in Ser um or PlasmaOrdered By: Kevon Viera on 08-13-2024 Glucose [Mass/Vol] Glucose [Mass/volume ] in Serum or Plasma High 70-100 [facility] Comment on above: ADA recommended refe rence rangeRandom Glucose Reference Range is dependent on time and content of last meal. Glucose of more than 200 mg/dL in a nonstressed, ambulatory subject supports the diagnosis of Diabetes Mellitus. Hematocrit Auto (Bld) [Volum e fraction]Ordered By: Kevon Viera on 08-13-2024 Hematocrit (Bld) [Volume fraction] Hematocrit [Volume Fraction] of Blood by Automated count Low 38.8-50.0 [facility] Hemoglobin [Mass/volume] in BloodOrdered By: Kevon Viera on 08-13-2024 Hemoglobin (Bld) [Mass/Vol] Hemoglobin [Mass/volume] in Blood Low 13.0-17.0 [facility] Hemogram CBC Without Diffon 08-13-2024 Erythrocyte distribution width (RBC) [Ratio] 19.9 % High 12.0-14.8 [facility] Comment on above: Performed By: #### C DANA, CMP ####[place] [address] [place] [id number] [facility] Hematocrit (Bld) [Volume fraction] 30.0 % Low 38.8-50.0 [facility] Comment on above: Performed By: #### C DANA, CMP ####[place] [address] [place] [address] [facility] Hemoglobin (Bld) [Mass/Vol] 9.5 g/dL Low 13.0-17.0 [facility] Comment on above: Performed By: #### C BCMARI, CMP ####[place] [address] [place] [phone] [facility] MCH (RBC) [Entitic mass] 21.5 pg Low 27.5-35.2 [facility] Comment on above: Performed By: #### C BCNO, CMP ####[place] [id number] [facility] MCV (RBC) [Entitic vol] 67.8 fL Low 83.5-101 [facility] Comment on above: Performed By: #### C BCNO, CMP ####[place] [id number] [facility] Mean Corpuscular HGB Conc 31.7 g/dL Low 32.5-35.6 [facility] Comment on above: Performed By: #### C BCNO, CMP ####[place] [id number] [facility] Platelet mean volume (Bld) [Entitic vol] 10.1 fL Normal 6.6-10.1 [facility] Comment on above: Result Comment: PERF ORMED BY:[address] [place], [place] [phone] MEDICAL DIRECTORMIKE CABAN M.D. Performed By: #### C BCNO, CMP ####[place] [id number] [facility] Platelets (Bld) [#/Vol] 153 10*3/uL Normal 150-450 [facility] Comment on above: Performed By: #### C BCNO, CMP ####[place] [id number] [facility] RBC (Bld) [#/Vol] 4.42 10*6/uL Normal 3.90-5.[address] [facility] Comment on above: Performed By: #### C BCNO, CMP ####[place] [id number] [facility] WBC (Bld) [#/Vol] 8.0 10*3/uL Normal 4.1-10.5 [facility] Comment on above: Performed By: #### C BCNO, CMP ####[place] [id number] [place] Leukocytes [#/volume] correc jorge for nucleated erythrocytes in Blood by Automated counOrdered By: Kevon Haydenomar on 08-13-2024 WBC corrected for nucl RBC Auto (Bld) [#/Vol] Leukocytes [#/volume] corrected for nucleated erythrocytes in Blood by Automated coun 4.1-10.5 [facility] MCH Auto (RBC) [Entitic mass ]Ordered By: Objosedamaira Haydenomar on 08-13-2024 MCH (RBC) [Entitic mass] MCH [Entitic mass] by Automated count Low 27.5-35.2 [facility] MCHC Auto (RBC) [Mass/Vol]Or dered By: Objosedamaira Haydenomar on 08-13-2024 MCHC (RBC) [Mass/Vol] MCHC [Mass/volume] by Automated count Low 32.5-35.6 [facility] MCV Auto (RBC) [Entitic vol] Ordered By: Kevon Haydenomar on 08-13-2024 MCV (RBC) [Entitic vol] MCV [Entitic volume] by Automated count Low 83.5-101 [facility] No Panel InformationOrdered By: Kevon Bazzir on 08-13-2024 Estimated GFR (CKD-EPI) 49.698 mL/Min [facility] Creatinine Clearance (Chem 54.91 [facility] 49.698 mL/Min [facility] 54.91 [facility] Platelet mean volume Auto (B ld) [Entitic vol]Ordered By: Kevon Haydenomar on 08-13-2024 Platelet mean volume (Bld) [Entitic vol] Platelet mean volume [Entitic volume] in Blood by Automated count 6.6-10.1 [facility] Platelets Auto (Bld) [#/Vol] Ordered By: Kevon Haydenomar on 08-13-2024 Platelets (Bld) [#/Vol] Platelets [#/volume] in Blood by Automated count 150-450 [facility] Potassium [Moles/volume] in Serum or PlasmaOrdered By: Kevon Haydenomar on 08-13-2024 Potassium [Moles/Vol] Potassium [Moles/v olume] in Serum or Plasma 3.5-5.1 [facility] Protein [Mass/volume] in Ser um or PlasmaOrdered By: Obaydah Daromar on 08-13-2024 Protein [Mass/Vol] Protein [Mass/volume ] in Serum or Plasma Low 6.4-8.9 [facility] RBC Auto (Bld) [#/Vol]Ordere d By: Obaydah Daromar on 08-13-2024 RBC (Bld) [#/Vol] Erythrocytes [#/volu me] in Blood by Automated count 3.90-5.60 [facility] Serum or plasma albumin/glob ulin mass ratioOrdered By: Obaydah Daromar on 08-13-2024 Albumin/Globulin [Mass ratio] Serum or plasma albumin/globulin mass ratio [facility] Serum or plasma anion gap de terminationOrdered By: Obaydah Daromar on 08-13-2024 Anion gap [Moles/Vol] Serum or plasma an ion gap determination 6.0-15.0 [facility] Sodium [Moles/volume] in Ser um or PlasmaOrdered By: Obaydah Daromar on 08-13-2024 Sodium [Moles/Vol] Sodium [Moles/volume ] in Serum or Plasma 136-145 [facility] Urea nitrogen [Mass/volume] in Serum or PlasmaOrdered By: Obaydah Daromar on 08-13-2024 Urea nitrogen [Mass/Vol] Urea nitrogen [Mass/volume] in Serum or Plasma 7-25 [facility] Albumin Levelon 08-12-2024 Albumin [Mass/Vol] 3.5 g/dL Normal 3.5-5.7 [facility] Comment on above: Result Comment: PERF ORMED BY:[facility] [place], [place] [phone] MEDICAL DIRECTORMIKE CABAN M.D. Performed By: #### S CAN CBC, ALB, BMP ####[facility] [address] [place] [address] [facility] Anisocytosis LM Ql (Bld)Orde red By: Marge Andino on 08-12-2024 Anisocytosis Ql (Bld) Anisocytosis [Pres ence] in Blood by Light microscopy [facility] Basic Metabolic Panelon 08-03 Anion gap [Moles/Vol] 11.6 mmol/L Normal 6.0-15.0 Th e [facility] Comment on above: Performed By: #### S CAN CBC, ALB, BMP ####[place] [address] [place] [phone] [facility] Calcium [Mass/Vol] 6.3 mg/dL Off scale low 8.6-10.3 [facility] Comment on above: Result Comment: Crit ical Result Called to and read back by: NOT FIRST TIME CRITICAL at: 08/12/2024 06:59:53 by:RAFAEL Performed By: #### S CAN CBC, ALB, BMP ####[place] [id number] [facility] Chloride [Moles/Vol] 107 mmol/L Normal 98-107 [facility] Comment on above: Performed By: #### S CAN CBC, ALB, BMP ####[place] [id number] [facility] CO2 [Moles/Vol] 25.1 mmol/L Normal 21.0-31.0 [facility] Comment on above: Performed By: #### S CAN CBC, ALB, BMP ####[place] [id number] [facility] Creatinine [Mass/Vol] 1.79 mg/dL Significan t change up 0.70-1.30 [facility] Comment on above: Performed By: #### S CAN CBC, ALB, BMP ####[place] [id number] [facility] Creatinine Clr Calc Pharmacy 48.77 Normal [facility] Comment on above: Result Comment: PERF ORMED BY:[address] [place], [place] [phone] MEDICAL DIRECTORMIKE CABAN M.D. Performed By: #### S CAN CBC, ALB, BMP ####[place] [id number] [facility] Estimated GFR 43.111 mL/Min Normal [facility] Comment on above: Performed By: #### S CAN CBC, ALB, BMP ####[facility] Glucose [Mass/Vol] 91 mg/dL Normal 70-100 [facility] Comment on above: Result Comment: [place] Glucose Reference Range is dependent on time and content of last meal. Glucose of more than 200 mg/dL in a nonstressed, ambulatory subject supports the diagnosis of Diabetes Mellitus. ADA recommended reference range Performed By: #### S CAN CBC, ALB, BMP ####[place] [address] Potassium [Moles/Vol] 3.7 mmol/L Normal 3.5-5.1 [facility] Comment on above: Performed By: #### S CAN CBC, ALB, BMP ####[place] [address] Sodium [Moles/Vol] 140 mmol/L Normal 136-145 [facility] Comment on above: Performed By: #### S CAN CBC, ALB, BMP ####[place] [address] Urea nitrogen [Mass/Vol] 20 mg/dL Normal 7-25 [facility] Comment on above: Performed By: #### S CAN CBC, ALB, BMP ####[place] [address] Basophils Auto (Bld) [#/Vol] Ordered By: Marge Andino on 08-12-2024 Basophils (Bld) [#/Vol] Automated basophil count 0.0-0.2 [facility] Basophils/100 WBC Auto (Bld) Ordered By: Marge Andino on 08-12-2024 Basophils/100 WBC (Bld) Automated basophil % . [facility] Eosinophils Auto (Bld) [#/Vo l]Ordered By: Marge Andino on 08-12-2024 Eosinophils (Bld) [#/Vol] Automated eosinophil count 0.0-0.45 [facility] Eosinophils/100 WBC Auto (Bl d)Ordered By: Marge Andino on 08-12-2024 Eosinophils/100 WBC (Bld) Automated eosinophil % . [facility] Erythrocyte morphology findi ng [Identifier] in BloodOrdered By: Marge Andino on 08-12-2024 RBC morphology finding Nom (Bld) RBC morphology [facility] Glucose Poct Glucometerson 0 08-12-2024 Glucose [Mass/Vol] 168 mg/dL Normal [facility] Comment on above: Result Comment: [place] Glucose Reference Range is dependent on time and content of last meal. Glucose of more than 200 mg/dL in a nonstressed, ambulatory subject supports the diagnosis of Diabetes Mellitus.PERFORMED BY:[place] [address] [place], [place] [phone] MEDICAL DIRECTORMIKE CABAN M.D. Performed By: #### G LULS ####Point of Care testing, Glucose [Mass/Vol] 162 mg/dL Normal [facility] Comment on above: Result Comment: [facility] Glucose Reference Range is dependent on time and content of last meal. Glucose of more than 200 mg/dL in a nonstressed, ambulatory subject supports the diagnosis of Diabetes Mellitus.PERFORMED BY:[place] [address] [place], [place] [phone] TREVIN CABAN M.D. Performed By: #### G LULS ####Point of Care testing, Glucose [Mass/Vol] 179 mg/dL Normal [facility] [facility] Comment on above: Result Comment: [facility] Glucose Reference Range is dependent on time and content of last meal. Glucose of more than 200 mg/dL in a nonstressed, ambulatory subject supports the diagnosis of Diabetes Mellitus.PERFORMED BY:[place] [address] [place], [place] [phone] MEDICAL DIRECTORMIKE CABAN M.D. Performed By: #### G LULS ####Point of Care testing, Glucose [Mass/Vol] 98 mg/dL Normal [facility] Comment on above: Result Comment: [place] Glucose Reference Range is dependent on time and content of last meal. Glucose of more than 200 mg/dL in a nonstressed, ambulatory subject supports the diagnosis of Diabetes Mellitus.PERFORMED BY:[place] [place], [place] [phone] MEDICAL DIRECTORMIKE CABAN M.D. Performed By: #### G LULS ####Point of Care testing, Hypochromia LM Ql (Bld)Order ed By: Marge Andino on 08-12-2024 Hypochromia Ql (Bld) Hypochromia [Presen ce] in Blood by Light microscopy [facility] Lymphocytes Auto (Bld) [#/Vo l]Ordered By: Marge Andino on 08-12-2024 Lymphocytes (Bld) [#/Vol] Lymphocytes [#/volume] in Blood by Automated count 1.00-4.8 [facility] Lymphocytes/100 WBC Auto (Bl d)Ordered By: Marge Andino on 08-12-2024 Lymphocytes/100 WBC (Bld) Lymphocytes/100 leukocytes in Blood by Automated count . [facility] Magnesiumon 08-12-2024 Magnesium [Mass/Vol] 2.9 mg/dL Significant change up 1.9-2.7 [facility] Comment on above: Result Comment: PERF ORMED BY:[place] [address] [place], [place] [phone] MEDICAL DIRECTORMOKAREN CABAN M.D. Performed By: #### M G ####[facility] [place] [address] [facility] Magnesium [Mass/volume] in S ilia or PlasmaOrdered By: Maurice Francis on 08-12-2024 Magnesium [Mass/Vol] Magnesium [Mass/vol ume] in Serum or Plasma Significant change up 1.9-2.7 [facility] Comment on above: Delta: 0.5 on -0415 Microcytes LM Ql (Bld)Ordere d By: Marge Andino on 08-12-2024 Microcytes Ql (Bld) Microcytes [Presence ] in Blood by Light microscopy [facility] Monocytes Auto (Bld) [#/Vol] Ordered By: Marge Andino on 08-12-2024 Monocytes (Bld) [#/Vol] Automated blood monocyte count 0.0-0.8 [facility] Monocytes/100 WBC Auto (Bld) Ordered By: Marge Andino on 08-12-2024 Monocytes/100 WBC (Bld) Automated monocyte % . [facility] Neutrophils Auto (Bld) [#/Vo l]Ordered By: Marge Andino on 08-12-2024 Neutrophils (Bld) [#/Vol] Neutrophils [#/volume] in Blood by Automated count High 1.8-7.7 [facility] Neutrophils/100 WBC Auto (Bl d)Ordered By: Marge Andino on 08-12-2024 Neutrophils/100 WBC (Bld) Automated neutrophil % . [facility] No Panel InformationOrdered By: Marge Andino on 08-12-2024 CBC Comment See comment [facility] Comment on above: There is significant microcytosis which suggests the possibility of iron deficiency. Consider serum ferritin and iron studies. See comment [facility] Nucleated erythrocytes [Pres ence] in Blood by Automated countOrdered By: Marge Andino on 08-12-2024 Nucleated RBC Auto Ql (Bld) Nucleated erythrocytes [Presence] in Blood by Automated count 0-0.5 [facility] Ovalocytes [Presence] in Blo od by Light microscopyOrdered By: Marge Andino on 08-12-2024 Ovalocytes LM Ql (Bld) Ovalocyte detection [facility] Platelet adequacy [Presence] in Blood by Light microscopyOrdered By: Marge Andino on 08-12-2024 Platelets LM Ql (Bld) Platelet adequacy [Presence] in Blood by Light microscopy Normal [facility] Platelet morphology finding [Identifier] in BloodOrdered By: Marge Andino on 08-12-2024 Platelet morphology finding Nom (Bld) Platelet morphology finding [Identifier] in Blood Normal [facility] Poikilocytosis [Presence] in Blood by Light microscopyOrdered By: Marge Andino on 08-12-2024 Poikilocytosis LM Ql (Bld) Poikilocytosis [Presence] in Blood by Light microscopy [facility] Scan and CBCon 08-12-2024 Additional Comments Normal The [facility] Comment on above: Result Comment: Ther e is significant microcytosis which suggests the possibility of iron deficiency. Consider serum ferritin and iron studies.PERFORMED BY:[address] [place], [place] [phone] MEDICAL DIRECTORMIKE CABAN M.D. Performed By: #### S CAN CBC, ALB, BMP ####[address] Anisocytosis Ql (Bld) Marked Normal [facility] Comment on above: Performed By: #### S CAN CBC, ALB, BMP ####[address] Basophils (Bld) [#/Vol] 0.1 10*3/uL Normal 0.0-0.2 [facility] Comment on above: Performed By: #### S CAN CBC, ALB, BMP ####[address] Basophils/100 WBC (Bld) 0.8 % Normal . [facility] Comment on above: Performed By: #### S CAN CBC, ALB, BMP ####[address] Eosinophils (Bld) [#/Vol] 0.3 10*3/uL Normal 0.0-0.45 [facility] Comment on above: Performed By: #### S CAN CBC, ALB, BMP ####[address] Eosinophils/100 WBC (Bld) 3.1 % Normal . [facility] Comment on above: Performed By: #### S CAN CBC, ALB, BMP ####[address] Erythrocyte distribution width (RBC) [Ratio] 20.0 % High 12.0-14.8 [facility] Comment on above: Performed By: #### S CAN CBC, ALB, BMP ####[address] Hematocrit (Bld) [Volume fraction] 29.5 % Low 38.8-50.0 [facility] Comment on above: Performed By: #### S CAN CBC, ALB, BMP ####[address] Hemoglobin (Bld) [Mass/Vol] 9.5 g/dL Low 13.0-17.0 [facility] Comment on above: Performed By: #### S CAN CBC, ALB, BMP ####[address] Hypochromasia Slight Normal [facility] Comment on above: Performed By: #### S CAN CBC, ALB, BMP ####[address] Lymphocytes (Bld) [#/Vol] 1.0 10*3/uL Normal 1.00-4.8 [facility] Comment on above: Performed By: #### S CAN CBC, ALB, BMP ####[address] Lymphocytes/100 WBC (Bld) 9.6 % Normal . [facility] Comment on above: Performed By: #### S CAN CBC, ALB, BMP ####[address] MCH (RBC) [Entitic mass] 21.9 pg Low 27.5-35.2 [facility] Comment on above: Performed By: #### S CAN CBC, ALB, BMP ####[address] MCV (RBC) [Entitic vol] 68.2 fL Low 83.5-101 [facility] Comment on above: Performed By: #### S CAN CBC, ALB, BMP ####[address] Mean Corpuscular HGB Conc 32.1 g/dL Low 32.5-35.6 [facility] Comment on above: Performed By: #### S CAN CBC, ALB, BMP ####[address] Microcytosis Moderate Normal [facility] Comment on above: Performed By: #### S CAN CBC, ALB, BMP ####[address] Monocytes (Bld) [#/Vol] 0.8 10*3/uL Normal 0.0-0.8 [facility] Comment on above: Performed By: #### S CAN CBC, ALB, BMP ####[address] Monocytes/100 WBC (Bld) 8.3 % Normal . [facility] Comment on above: Performed By: #### S CAN CBC, ALB, BMP ####[address] Neutrophils (Bld) [#/Vol] 8.0 10*3/uL High 1.8-7.7 [facility] Comment on above: Performed By: #### S CAN CBC, ALB, BMP ####[address] Neutrophils/100 WBC (Bld) 78.2 % Normal . [facility] Comment on above: Performed By: #### S CAN CBC, ALB, BMP ####[address] NRBC% 0.1 /100{WBC} Normal 0-0.5 [facility] Comment on above: Performed By: #### S CAN CBC, ALB, BMP ####[address] Ovalocytes Slight Normal [facility] Comment on above: Performed By: #### S CAN CBC, ALB, BMP ####[address] Platelet Estimate Normal Normal Normal [facility] Comment on above: Performed By: #### S CAN CBC, ALB, BMP ####[place] [id number] [facility] Platelet mean volume (Bld) [Entitic vol] 9.4 fL Normal 6.6-10.1 [facility] Comment on above: Performed By: #### S CAN CBC, ALB, BMP ####[place] [id number] [facility] Platelet Morphology Normal Normal Normal The [facility] Comment on above: Performed By: #### S CAN CBC, ALB, BMP ####[place] [id number] Platelets (Bld) [#/Vol] 162 10*3/uL Normal 150-450 [facility] Comment on above: Performed By: #### S CAN CBC, ALB, BMP ####[address] Poikilocytosis Slight Normal [facility] Comment on above: Performed By: #### S CAN CBC, ALB, BMP ####[place] [id number] RBC (Bld) [#/Vol] 4.32 10*6/uL Normal 3.90-5.[address] [facility] Comment on above: Performed By: #### S CAN CBC, ALB, BMP ####[place] [id number] [facility] WBC (Bld) [#/Vol] 10.2 10*3/uL Normal 4.1-10.[address] [facility] Comment on above: Performed By: #### S CAN CBC, ALB, BMP ####[place] [id number] [facility] WBC Auto (Bld) [#/Vol]Ordere d By: Marge Andino on 08-12-2024 WBC (Bld) [#/Vol] Leukocytes [#/volume ] in Blood by Automated count 4.1-10.5 [facility] Alanine aminotransferase [En zymatic activity/volume] in Serum or PlasmaOrdered By: Francisco Duncan on 08-11-2024 ALT [Catalytic activity/Vol] Alanine aminotransferase [Enzymatic activity/volume] in Serum or Plasma 7-52 [facility] Albumin [Mass/volume] in Ser um or Plasma by Bromocresol green (BCG) dye binding methoOrdered By: Francisco Duncan on 08-11-2024 Albumin BCG dye [Mass/Vol] Albumin [Mass/volume] in Serum or Plasma by Bromocresol green (BCG) dye binding metho 3.5-5.7 [facility] Alkaline phosphatase [Enzyma tic activity/volume] in Serum or PlasmaOrdered By: Francisco Duncan on 08-11-2024 ALP [Catalytic activity/Vol] Alkaline phosphatase [Enzymatic activity/volume] in Serum or Plasma High 34-104 [facility] Anisocytosis LM Ql (Bld)Orde red By: Francisco Duncan on 08-11-2024 Anisocytosis Ql (Bld) Anisocytosis [Pres ence] in Blood by Light microscopy [facility] Appearance of UrineOrdered B y: Francisco Duncan on 08-11-2024 Appearance (U) Urine appearance Clear [facility] Aspartate aminotransferase [ Enzymatic activity/volume] in Serum or PlasmaOrdered By: Francisco Duncan on 08-11-2024 AST [Catalytic activity/Vol] Aspartate aminotransferase [Enzymatic activity/volume] in Serum or Plasma Low 13-39 [facility] Band form neutrophils/100 WB C Manual cnt (Bld)Ordered By: Francisco Duncan on 08-11-2024 Band form neutrophils/100 WBC (Bld) Peripheral white blood cell differential % bands, microscopic exam 0-5 [facility] Basophils Auto (Bld) [#/Vol] Ordered By: Francisco Duncan on 08-11-2024 Basophils (Bld) [#/Vol] Automated basophil count [facility] Basophils/100 WBC Auto (Bld) Ordered By: Francisco Duncan on 08-11-2024 Basophils/100 WBC (Bld) Automated basophil % [facility] Basophils/100 WBC Manual cnt (Bld)Ordered By: Francisco Duncan on 08-11-2024 Basophils/100 WBC (Bld) Basophils/100 leukocytes in Blood by Manual count 0-2 [facility] Bilirubin Test strip Ql (U)O rdered By: Francisco Duncan on 08-11-2024 Bilirubin Ql (U) Bilirubin.total [Presence] in Urine by Test strip Negative [facility] Bilirubin.total [Mass/volume ] in Serum or PlasmaOrdered By: Francisco Duncan on 08-11-2024 Bilirubin [Mass/Vol] Bilirubin.total [Mass/volume] in Serum or Plasma 0.3-1.0 [facility] Leigh Ann cells [Presence] in Blo od by Light microscopyOrdered By: Francisco Duncan on 08-11-2024 Leigh Ann cells LM Ql (Bld) Leigh Ann cells [Prese nce] in Blood by Light microscopy [facility] CT angio neckon 08-11-2024 CT angio neck Normal [facility] Calcium [Mass/volume] in Ser um or PlasmaOrdered By: Francisco Duncan on 08-11-2024 Calcium [Mass/Vol] Calcium [Mass/volume ] in Serum or Plasma Critically low 8.6-10.3 [facility] Comment on above: Critical Result Call ed to and read back by: MONCHO FINK at: 08/11/2024 04:56:06 by:RANDOLPH Carbon dioxide, total [Moles /volume] in Serum or PlasmaOrdered By: Francisco Duncan on 08-11-2024 CO2 [Moles/Vol] Carbon dioxide, tota l [Moles/volume] in Serum or Plasma 21.0-31.0 [facility] Chloride [Moles/volume] in S ilia or PlasmaOrdered By: Francisco Duncan on 08-11-2024 Chloride [Moles/Vol] Chloride [Moles/vol ume] in Serum or Plasma 98-107 [facility] Color Auto (U)Ordered By: Brandon Duncan on 08-11-2024 Color (U) Color of Urine by Auto Yellow [facility] Comprehensive Metabolic Pane guy 08-11-2024 Albumin [Mass/Vol] 4.2 g/dL Normal 3.5-5.7 [facility] Comment on above: Performed By: #### D IFF CBC, CK, PT, PTT, CMP, HS TROP ####[facility] [id number] [place] [address] [facility] Albumin/Globulin [Mass ratio] 1.6 {ratio} Normal [facility] Comment on above: Performed By: #### D IFF CBC, CK, PT, PTT, CMP, HS TROP ####[address] ALP [Catalytic activity/Vol] 105 U/L High 34-104 [facility] Comment on above: Performed By: #### D IFF CBC, CK, PT, PTT, CMP, HS TROP ####[address] ALT [Catalytic activity/Vol] 11 U/L Normal 7-52 [facility] Comment on above: Performed By: #### D IFF CBC, CK, PT, PTT, CMP, HS TROP ####[address] Anion gap [Moles/Vol] 16.0 mmol/L High 6.0-15.0 Th e [facility] Comment on above: Performed By: #### D IFF CBC, CK, PT, PTT, CMP, HS TROP ####[address] AST [Catalytic activity/Vol] 12 U/L Low 13-39 [facility] Comment on above: Performed By: #### D IFF CBC, CK, PT, PTT, CMP, HS TROP ####[address] Bilirubin [Mass/Vol] 0.4 mg/dL Normal 0.3-1.0 [facility] Comment on above: Performed By: #### D IFF CBC, CK, PT, PTT, CMP, HS TROP ####[address] Calcium [Mass/Vol] 6.1 mg/dL Off scale low 8.6-10.3 [facility] Comment on above: Result Comment: Crit ical Result Called to and read back by: MONCHO FINK at: 08/11/2024 04:56:06 by:RANDOLPH Performed By: #### D IFF CBC, CK, PT, PTT, CMP, HS TROP ####[place] [id number] [facility] Chloride [Moles/Vol] 100 mmol/L Normal 98-107 [facility] Comment on above: Performed By: #### D IFF CBC, CK, PT, PTT, CMP, HS TROP ####[address] [address] [facility] CO2 [Moles/Vol] 27.1 mmol/L Normal 21.0-31.0 [facility] Comment on above: Performed By: #### D IFF CBC, CK, PT, PTT, CMP, HS TROP ####[address] [address] [facility] Creatinine [Mass/Vol] 2.62 mg/dL High 0.70-1.30 [facility] Comment on above: Performed By: #### D IFF CBC, CK, PT, PTT, CMP, HS TROP ####[address] Creatinine Clr Calc Pharmacy 33.32 Normal [facility] Comment on above: Result Comment: PERF ORMED BY:[address] [place], [place] [phone] MEDICAL DIRECTORMIKE CABAN M.D. Performed By: #### D IFF CBC, CK, PT, PTT, CMP, HS TROP ####[address] [address] [facility] Estimated GFR 27.293 mL/Min Normal [facility] Comment on above: Performed By: #### D IFF CBC, CK, PT, PTT, CMP, HS TROP ####[address] [address] [facility] Globulin (S) [Mass/Vol] 2.7 g/dL Normal [facility] Comment on above: Performed By: #### D IFF CBC, CK, PT, PTT, CMP, HS TROP ####[address] [address] [facility] Glucose [Mass/Vol] 102 mg/dL High 70-100 [facility] Comment on above: Result Comment: [facility] Glucose Reference Range is dependent on time and content of last meal. Glucose of more than 200 mg/dL in a nonstressed, ambulatory subject supports the diagnosis of Diabetes Mellitus. ADA recommended reference range Performed By: #### D IFF CBC, CK, PT, PTT, CMP, HS TROP ####[address] Potassium [Moles/Vol] 3.1 mmol/L Low 3.5-5.1 [facility] Comment on above: Performed By: #### D IFF CBC, CK, PT, PTT, CMP, HS TROP ####[place] [address] [place] [id number] [facility] Protein [Mass/Vol] 6.9 g/dL Normal 6.4-8.9 [facility] Comment on above: Performed By: #### D IFF CBC, CK, PT, PTT, CMP, HS TROP ####[address] Sodium [Moles/Vol] 140 mmol/L Normal 136-145 [facility] Comment on above: Performed By: #### D IFF CBC, CK, PT, PTT, CMP, HS TROP ####[place] [id number] [facility] Urea nitrogen [Mass/Vol] 26 mg/dL High 7-25 [facility] Comment on above: Performed By: #### D IFF CBC, CK, PT, PTT, CMP, HS TROP ####[place] [id number] [facility] Creatine Kinaseon 08-11-2024 CK [Catalytic activity/Vol] 305 U/L High 30-223 [facility] Comment on above: Performed By: #### D IFF CBC, CK, PT, PTT, CMP, HS TROP ####[place] [id number] [facility] Creatine kinase [Enzymatic a ctivity/volume] in Serum or PlasmaOrdered By: Francisco Duncan on 08-11-2024 CK [Catalytic activity/Vol] Creatine kinase [Enzymatic activity/volume] in Serum or Plasma High 30-223 [facility] Creatinine [Mass/volume] in Serum or PlasmaOrdered By: Francisco Duncan on 08-11-2024 Creatinine [Mass/Vol] Creatinine [Mass/v olume] in Serum or Plasma High 0.70-1.30 [facility] Diff and CBCon 08-11-2024 Anisocytosis Ql (Bld) Marked Normal [facility] Comment on above: Performed By: #### D IFF CBC, CK, PT, PTT, CMP, HS TROP ####[address] Band form neutrophils/100 WBC (Bld) 1 % Normal 0-5 [facility] Comment on above: Performed By: #### D IFF CBC, CK, PT, PTT, CMP, HS TROP ####[place] [id number] [facility] Basophils/100 WBC (Bld) 1 % Normal 0-2 [facility] Comment on above: Performed By: #### D IFF CBC, CK, PT, PTT, CMP, HS TROP ####[address] Crenated RBC Slight Normal [facility] Comment on above: Performed By: #### D IFF CBC, CK, PT, PTT, CMP, HS TROP ####[place] [id number] [facility] Eosinophils/100 WBC (Bld) 4 % High 1-3 [facility] Comment on above: Performed By: #### D IFF CBC, CK, PT, PTT, CMP, HS TROP ####[place] [id number] [facility] Erythrocyte distribution width (RBC) [Ratio] 20.1 % High 12.0-14.8 [facility] Comment on above: Performed By: #### D IFF CBC, CK, PT, PTT, CMP, HS TROP ####[address] [address] [facility] Hematocrit (Bld) [Volume fraction] 35.8 % Low 38.8-50.0 [facility] Comment on above: Performed By: #### D IFF CBC, CK, PT, PTT, CMP, HS TROP ####[address] Hemoglobin (Bld) [Mass/Vol] 11.6 g/dL Low 13.0-17.0 [facility] Comment on above: Performed By: #### D IFF CBC, CK, PT, PTT, CMP, HS TROP ####[address] Lymphocytes/100 WBC (Bld) 30 % Normal 18-42 [facility] Comment on above: Performed By: #### D IFF CBC, CK, PT, PTT, CMP, HS TROP ####[address] MCH (RBC) [Entitic mass] 21.8 pg Low 27.5-35.2 [facility] Comment on above: Performed By: #### D IFF CBC, CK, PT, PTT, CMP, HS TROP ####[address] MCV (RBC) [Entitic vol] 67.4 fL Low 83.5-101 [facility] Comment on above: Performed By: #### D IFF CBC, CK, PT, PTT, CMP, HS TROP ####[address] Mean Corpuscular HGB Conc 32.3 g/dL Low 32.5-35.6 [facility] Comment on above: Performed By: #### D IFF CBC, CK, PT, PTT, CMP, HS TROP ####[address] Microcytosis Moderate Normal [facility] Comment on above: Performed By: #### D IFF CBC, CK, PT, PTT, CMP, HS TROP ####[address] Monocytes/100 WBC (Bld) 17.90 % Normal 0.00-20.00 [facility] Comment on above: Performed By: #### D IFF CBC, CK, PT, PTT, CMP, HS TROP ####[place] [address] [place] [address] [facility] Monocytes/100 WBC (Bld) 5 % Normal 2-11 [facility] Comment on above: Performed By: #### D IFF CBC, CK, PT, PTT, CMP, HS TROP ####[place] [address] [place] [address] [facility] Ovalocytes Slight Normal [facility] Comment on above: Performed By: #### D IFF CBC, CK, PT, PTT, CMP, HS TROP ####[place] [address] [place] [address] [facility] Platelet Estimate Normal Normal Normal [facility] Comment on above: Performed By: #### D IFF CBC, CK, PT, PTT, CMP, HS TROP ####[place] [address] [place] [address] [facility] Platelet mean volume (Bld) [Entitic vol] 9.1 fL Normal 6.6-10.1 [facility] Comment on above: Result Comment: PERF ORMED BY:[place] [address] [place], [place] [phone] MEDICAL DIRECTORMOKAREN CABAN M.D. Performed By: #### D IFF CBC, CK, PT, PTT, CMP, HS TROP ####[place] [address] [place] [address] [facility] Platelet Morphology Normal Normal Normal The [facility] Comment on above: Result Comment: PERF ORMED BY:[place] [address] [place], [place] [phone] MEDICAL DIRECTORMIKE CABAN M.D. Performed By: #### D IFF CBC, CK, PT, PTT, CMP, HS TROP ####[place] [address] [place] [address] [facility] Platelets (Bld) [#/Vol] 209 10*3/uL Normal 150-450 [facility] Comment on above: Performed By: #### D IFF CBC, CK, PT, PTT, CMP, HS TROP ####[address] [address] [facility] Poikilocytosis Slight Normal [facility] Comment on above: Performed By: #### D IFF CBC, CK, PT, PTT, CMP, HS TROP ####[place] [address] [place] [address] [facility] Polychromasia Slight Normal [facility] Comment on above: Performed By: #### D IFF CBC, CK, PT, PTT, CMP, HS TROP ####[address] [address] [facility] RBC (Bld) [#/Vol] 5.32 10*6/uL Normal 3.90-5.[address] [facility] Comment on above: Performed By: #### D IFF CBC, CK, PT, PTT, CMP, HS TROP ####[place] [id number] [facility] Segmented neutrophils/100 WBC (Bld) 60 % Normal 50-70 The [facility] Comment on above: Performed By: #### D IFF CBC, CK, PT, PTT, CMP, HS TROP ####[place] [id number] [facility] WBC (Bld) [#/Vol] 10.7 10*3/uL High 4.1-10.[address] [facility] Comment on above: Performed By: #### D IFF CBC, CK, PT, PTT, CMP, HS TROP ####[place] [id number] [facility] ECG 12 lead ECGon 08-11-2024 ECG 12 lead ECG Normal [facility] Eosinophils Auto (Bld) [#/Vo l]Ordered By: Francisco Duncan on 08-11-2024 Eosinophils (Bld) [#/Vol] Automated eosinophil count [facility] Eosinophils/100 WBC Auto (Bl d)Ordered By: Francisco Duncan on 08-11-2024 Eosinophils/100 WBC (Bld) Automated eosinophil % [facility] Eosinophils/100 WBC Manual c nt (Bld)Ordered By: Francisco Duncan on 08-11-2024 Eosinophils/100 WBC (Bld) Eosinophils/100 leukocytes in Blood by Manual count High 1-3 [facility] Erythrocyte distribution wid th Auto (RBC) [Ratio]Ordered By: Francisco Duncan on 08-11-2024 Erythrocyte distribution width (RBC) [Ratio] Erythrocyte distribution width [Ratio] by Automated count High 12.0-14.8 [facility] Erythrocyte morphology findi ng [Identifier] in BloodOrdered By: Francisco Duncan on 08-11-2024 RBC morphology finding Nom (Bld) RBC morphology [facility] Ferritinon 08-11-2024 Ferritin [Mass/Vol] 5.3 ng/mL Low 23.9-336.2 [facility] Comment on above: Order Comment: Comme nt add Result Comment: PERF ORMED BY:[address] [place], [place] [phone] MEDICAL DIRECTORMIKE CABAN M.D. Performed By: #### F E and TIBC, LILA ####[facility] [place] [address] [facility] Ferritin [Mass/volume] in Se rum or PlasmaOrdered By: Marge Andino on 08-11-2024 Ferritin [Mass/Vol] Ferritin [Mass/volum e] in Serum or Plasma Low 23.9-336.2 [facility] Folate [Mass/volume] in Seru m or PlasmaOrdered By: Marge Andino on 08-11-2024 Folate [Mass/Vol] Folate [Mass/volume] in Serum or Plasma >5.9 [facility] Comment on above: Folate reference ran ge: >5.9 ng/mlThe WHO technical consultation on folate and vitamin [id number] has determined that folate concentrations lessthan 4 ng/ml are considered deficient. Globulin Calc (S) [Mass/Vol] Ordered By: Francisco Duncan on 08-11-2024 Globulin (S) [Mass/Vol] Serum globulin measurement by calculation (mass/volume) [facility] Glucose Poct Glucometerson 0 08-11-2024 Commemt1 Glu2: Cleaned Meter Normal [facility] Comment on above: Result Comment: PERF ORMED BY:[place] [address] [place], [place] [phone] MEDICAL DIRECTORMIKE CABAN M.D. Performed By: #### G LULS ####Point of Care testing, Glucose [Mass/Vol] 241 mg/dL Normal The [facility] Comment on above: Result Comment: Go[place] om Glucose Reference Range is dependent on time and content of last meal. Glucose of more than 200 mg/dL in a nonstressed, ambulatory subject supports the diagnosis of Diabetes Mellitus. Performed By: #### G LULS ####Point of Care testing, Glucose [Mass/Vol] 244 mg/dL Normal [facility] Comment on above: Result Comment: [place] om Glucose Reference Range is dependent on time and content of last meal. Glucose of more than 200 mg/dL in a nonstressed, ambulatory subject supports the diagnosis of Diabetes Mellitus.PERFORMED BY:[place] [address] [place], [place] [phone] MEDICAL DIRECTORMIKE CABAN M.D. Performed By: #### G LULS ####Point of Care testing, Commemt1 Glu2: Cleaned Meter Normal The [facility] Comment on above: Result Comment: PERF ORMED BY:[place] [address] [place], [place] [phone] MEDICAL DIRECTORMOKAREN CABAN M.D. Performed By: #### G LULS ####Point of Care testing, Glucose [Mass/Vol] 89 mg/dL Normal [facility] Comment on above: Result Comment: [place] om Glucose Reference Range is dependent on time and content of last meal. Glucose of more than 200 mg/dL in a nonstressed, ambulatory subject supports the diagnosis of Diabetes Mellitus. Performed By: #### G LULS ####Point of Care testing, Glucose [Mass/Vol] 176 mg/dL Normal [facility] Comment on above: Result Comment: [place] om Glucose Reference Range is dependent on time and content of last meal. Glucose of more than 200 mg/dL in a nonstressed, ambulatory subject supports the diagnosis of Diabetes Mellitus.PERFORMED BY:[facility] [place], [place] [phone] MEDICAL DIRECTORMIKE CABAN M.D. Performed By: #### G NELI ####Point of Care testing, Glucose [Mass/volume] in Ser um or PlasmaOrdered By: Francisco Duncan on 08-11-2024 Glucose [Mass/Vol] Glucose [Mass/volume ] in Serum or Plasma High 70-100 [facility] Comment on above: ADA recommended refe [...] in Urine by Test strip High Normal [facility] Hematocrit Auto (Bld) [Volum e fraction]Ordered By: Francisco Duncan on 08-11-2024 Hematocrit (Bld) [Volume fraction] Hematocrit [Volume Fraction] of Blood by Automated count Low 38.8-50.0 [facility] Hemoglobin Test strip Ql (U) Ordered By: Francisco Duncan on 08-11-2024 Hemoglobin Ql (U) Hemoglobin [Presence ] in Urine by Test strip Negative [facility] Hemoglobin [Mass/volume] in BloodOrdered By: Francisco Duncan 08-11-2024 Hemoglobin (Bld) [Mass/Vol] Hemoglobin [Mass/volume] in Blood Low 13.0-17.0 [facility] INR in Platelet poor plasma by Coagulation assayOrdered By: Francisco Duncan on 08-11-2024 INR Coag (PPP) [Relative time] INR in Platelet poor plasma by Coagulation assay [facility] Comment on [...] Iron [Mass/volume] in Serum or PlasmaOrdered By: Marge Andino on 08-11-2024 Iron [Mass/Vol] Iron [Mass/volume] i n Serum or Plasma Low 50-212 [facility] Iron and TIBC Profileon - % Iron Saturation 7.0 % Low 20-50 [facility] Comment on above: Order Comment: Comme nt add Performed By: #### F E and TIBC, LILA ####[place] [address] [place] [id number] [facility] Iron [Mass/Vol] 29 ug/dL Low 50-212 [facility] Comment on above: Order Comment: Comme nt add Performed By: #### F E and TIBC, LILA ####[place] [address] [place] [address] [facility] Total Iron Binding Capacity 414 ug/dL Normal 255-450 [facility] Comment on above: Order Comment: Comme nt add Performed By: #### F E and TIBC, LILA ####[place] [address] [place] [address] [facility] Transferrin [Mass/Vol] 296 mg/dL Normal 203-362 [facility] Comment on above: Order Comment: Comme nt add Performed By: #### F E and TIBC, LILA ####[place] [id number] [facility] Ketones Test strip Ql (U)Ord ered By: Francisco Duncan on 08-11-2024 Ketones Ql (U) Ketones [Presence] i n Urine by Test strip Negative [facility] Leukocyte esterase [Presence ] in Urine by Test stripOrdered By: Francisco Duncan on 08-11-2024 Leukocyte esterase Test strip Ql (U) Leukocyte esterase [Presence] in Urine by Test strip Negative [facility] Leukocytes [#/volume] correc jorge for nucleated erythrocytes in Blood by Automated counOrdered By: Francisco Duncan on 08-11-2024 WBC corrected for nucl RBC Auto (Bld) [#/Vol] Leukocytes [#/volume] corrected for nucleated erythrocytes in Blood by Automated coun High 4.1-10.5 [facility] Lymphocytes Auto (Bld) [#/Vo l]Ordered By: Francisco Duncan on 08-11-2024 Lymphocytes (Bld) [#/Vol] Lymphocytes [#/volume] in Blood by Automated count [facility] Lymphocytes/100 WBC Auto (Bl d)Ordered By: Francisco Duncan on 08-11-2024 Lymphocytes/100 WBC (Bld) Lymphocytes/100 leukocytes in Blood by Automated count [facility] Lymphocytes/100 WBC Manual c nt (Bld)Ordered By: Francisco Duncan on 08-11-2024 Lymphocytes/100 WBC (Bld) Lymphocytes/100 leukocytes in Blood by Manual count 18-42 [facility] MCH Auto (RBC) [Entitic mass ]Ordered By: Francisco Duncan on 08-11-2024 MCH (RBC) [Entitic mass] MCH [Entitic mass] by Automated count Low 27.5-35.2 [facility] MCHC Auto (RBC) [Mass/Vol]Or dered By: Francisco Duncan on 08-11-2024 MCHC (RBC) [Mass/Vol] MCHC [Mass/volume] by Automated count Low 32.5-35.6 [facility] MCV Auto (RBC) [Entitic vol] Ordered By: Francisco Duncan on 08-11-2024 MCV (RBC) [Entitic vol] MCV [Entitic volume] by Automated count Low 83.5-101 [facility] Magnesiumon 08-11-2024 Magnesium [Mass/Vol] 0.5 mg/dL Off scale low 1.9-2.7 [facility] Comment on above: Order Comment: Comme nt add Result Comment: Crit ical Result S_MG: Called to and read back by: MONCHO FINK at: 08/11/2024 06:13:29 by: Performed By: #### T SH3, MG, [id number], [id number] ####[facility] [address] [place] [id number] [facility] Magnesium [Mass/volume] in S ilia or PlasmaOrdered By: Marge Andino on 08-11-2024 Magnesium [Mass/Vol] Magnesium [Mass/vol ume] in Serum or Plasma Critically low 1.9-2.7 [facility] Comment on above: Critical Result S_MG : Called to and read back by: MONCHO FINK at: 08/11/2024 06:13:29 by:RANDOLPH Leong LM Ql (Bld)Ordere d By: Francisco Duncan on 08-11-2024 Microcytes Ql (Bld) Microcytes [Presence ] in Blood by Light microscopy [facility] Monocyte distribution width [Entitic volume] in Blood by AutomatedOrdered By: Francisco Duncan on 08-11-2024 Monocyte distribution width Auto (Bld) [Entitic vol] Monocyte distribution width [Entitic volume] in Blood by Automated 0.00-20.00 [facility] Monocytes Auto (Bld) [#/Vol] Ordered By: Francisco Duncan on 08-11-2024 Monocytes (Bld) [#/Vol] Automated blood monocyte count [facility] Monocytes/100 WBC Auto (Bld) Ordered By: Francisco Duncan on 08-11-2024 Monocytes/100 WBC (Bld) Automated monocyte % [facility] Monocytes/100 WBC Manual cnt (Bld)Ordered By: Francisco Duncan on 08-11-2024 Monocytes/100 WBC (Bld) Monocytes/100 leukocytes in Blood by Manual count 2-11 [facility] Neutrophils Auto (Bld) [#/Vo l]Ordered By: Francisco Duncan on 08-11-2024 Neutrophils (Bld) [#/Vol] Neutrophils [#/volume] in Blood by Automated count [facility] Neutrophils/100 WBC Auto (Bl d)Ordered By: Francisco Duncan on 08-11-2024 Neutrophils/100 WBC (Bld) Automated neutrophil % [facility] Nitrite Test strip Ql (U)Ord ered By: Francisco Duncan on 08-11-2024 Nitrite Ql (U) Nitrite [Presence] i n Urine by Test strip Negative [facility] No Panel InformationOrdered By: Kevon Viera on 08-11-2024 Bedside Glucose Comment Glu2: cleaned meter [facility] Glu2: cleaned meter [facility] No Panel InformationOrdered By: Francisco Duncan on 08-11-2024 Estimated GFR (CKD-EPI) 27.293 mL/Min [facility] Creatinine Clearance (Chem 33.32 [facility] Nucleated erythrocytes [Pres ence] in Blood by Automated countOrdered By: Francisco Duncan on 08-11-2024 Nucleated RBC Auto Ql (Bld) Nucleated erythrocytes [Presence] in Blood by Automated count [facility] Ovalocytes [Presence] in Blo od by Light microscopyOrdered By: Francisco Duncan on 08-11-2024 Ovalocytes LM Ql (Bld) Ovalocyte detection [facility] Parathyrin.intact [Mass/volu me] in Serum or PlasmaOrdered By: Francisco Duncan on 08-11-2024 Parathyrin.intact [Mass/Vol] Parathyrin.intact [Mass/volume] in Serum or Plasma [facility] Parathyroid Hormone Intacton 08-11-2024 Parathyroid Hormone Intact 38.3 pg/mL Normal [facility] Comment on above: Result Comment: PERF ORMED BY:[place] [address] [place], [place] [phone] MEDICAL DIRECTORMIKE CABAN M.D. Performed By: #### P TH, PHOS ####[address] [address] [facility] Partial Thromboplastin Timeo n 08-11-2024 aPTT Coag (Bld) [Time] 30.9 s Normal 25.1-36.5 Th e [facility] Comment on above: Result Comment: A he matocrit value greater than 55% may lead to inaccurate results in coagulation testing. Patients having hematocrit values >55% require a special collection tube for coagulation studies. Please contact the laboratory at [phone] for redraw instructions.PERFORMED BY:[place] [address] [place], [place] [phone] MEDICAL DIRECTORMIKE CABAN M.D. Performed By: #### D IFF CBC, CK, PT, PTT, CMP, HS TROP ####[facility] [address] [place] [address] [facility] Phosphate [Mass/volume] in S ilia or PlasmaOrdered By: Francisco Duncan on 08-11-2024 Phosphate [Mass/Vol] Phosphate [Mass/vol ume] in Serum or Plasma High 2.5-4.5 [facility] Phosphoruson 08-11-2024 Phosphate [Mass/Vol] 4.8 mg/dL High 2.5-4.5 [facility] Comment on above: Result Comment: PERF ORMED BY:[facility] [place], [place] [phone] MEDICAL DIRECTORMIKE CABAN M.D. Performed By: #### P TH, PHOS ####[facility] [place] [address] [facility] Platelet adequacy [Presence] in Blood by Light microscopyOrdered By: Francisco Duncan on 08-11-2024 Platelets LM Ql (Bld) Platelet adequacy [Presence] in Blood by Light microscopy Normal [facility] Platelet mean volume Auto (B ld) [Entitic vol]Ordered By: Francisco Duncan on 08-11-2024 Platelet mean volume (Bld) [Entitic vol] Platelet mean volume [Entitic volume] in Blood by Automated count 6.6-10.1 [facility] Platelet morphology finding [Identifier] in BloodOrdered By: Francisco Duncan on 08-11-2024 Platelet morphology finding Nom (Bld) Platelet morphology finding [Identifier] in Blood Normal [facility] Platelets Auto (Bld) [#/Vol] Ordered By: Francisco Duncan on 08-11-2024 Platelets (Bld) [#/Vol] Platelets [#/volume] in Blood by Automated count 150-450 [facility] Poikilocytosis [Presence] in Blood by Light microscopyOrdered By: Francisco Duncan on 08-11-2024 Poikilocytosis LM Ql (Bld) Poikilocytosis [Presence] in Blood by Light microscopy [facility] Polychromasia [Presence] in Blood by Light microscopyOrdered By: Francisco Duncan on 08-11-2024 Polychromasia LM Ql (Bld) Polychromasia [Presence] in Blood by Light microscopy [facility] Potassium [Moles/volume] in Serum or PlasmaOrdered By: Francisco Duncan on 08-11-2024 Potassium [Moles/Vol] Potassium [Moles/v olume] in Serum or Plasma Low 3.5-5.1 [facility] Protein Test strip (U) [Mass /Vol]Ordered By: Francisco Duncan on 08-11-2024 Protein (U) [Mass/Vol] Protein [Mass/vol ume] in Urine by Test strip Negative [facility] Protein [Mass/volume] in Ser um or PlasmaOrdered By: Francisco Duncan on 08-11-2024 Protein [Mass/Vol] Protein [Mass/volume ] in Serum or Plasma 6.4-8.9 [facility] Prothrombin Time INRon 08-11 INR Coag (PPP) [Relative time] 1.2 {INR} Normal [facility] Comment on above: Result [...] CBC, CK, PT, PTT, CMP, HS TROP ####[facility] [place] [id number] [facility] PT Coag (PPP) [Time] 13.8 s High 9.0-12.9 [facility] Comment on above: Result Comment: A he matocrit value greater than 55% may lead to inaccurate results in coagulation testing. Patients having hematocrit values >55% require a special collection tube for coagulation studies. Please contact the laboratory at [phone] for redraw instructions. Performed By: #### D IFF CBC, CK, PT, PTT, CMP, HS TROP ####[facility] [id number] [place] [id number] [facility] Prothrombin time (PT)Ordered By: Francisco Duncan on 08-11-2024 PT Coag (PPP) [Time] Prothrombin time (PT) High 9.0- 12.9 [facility] Comment on above: A hematocrit value g reater than 55% may lead to inaccurate results in coagulation testing. Patients having hematocrit values >55% require a special collection tube for coagulation studies. Please contact the laboratory at [phone] for redraw instructions. RBC Auto (Bld) [#/Vol]Ordere d By: Francisco Duncan on 08-11-2024 RBC (Bld) [#/Vol] Erythrocytes [#/volu me] in Blood by Automated count 3.90-5.60 [facility] Segmented neutrophils/100 WB C Manual cnt (Bld)Ordered By: Francisco Duncan on 08-11-2024 Segmented neutrophils/100 WBC (Bld) Manual blood segmented neutrophils/100 leukocytes 50-70 [facility] Serum or plasma albumin/glob ulin mass ratioOrdered By: Francisco Duncan on 08-11-2024 Albumin/Globulin [Mass ratio] Serum or plasma albumin/globulin mass ratio [facility] Serum or plasma anion gap de terminationOrdered By: Francisco Duncan on 08-11-2024 Anion gap [Moles/Vol] Serum or plasma an ion gap determination High 6.0-15.0 [facility] Serum or plasma iron binding capacity measurement (mass/volume)Ordered By: Marge Andino on 08-11-2024 Iron binding capacity [Mass/Vol] Iron binding capacity [Mass/volume] in Serum or Plasma 255-450 [facility] Serum or plasma iron saturat ion measurement (mass fraction)Ordered By: Marge Andino on 08-11-2024 Iron saturation [Mass fraction] Iron saturation [Mass Fraction] in Serum or Plasma Low 20-50 [facility] Sodium [Moles/volume] in Ser um or PlasmaOrdered By: Francisco Duncan on 08-11-2024 Sodium [Moles/Vol] Sodium [Moles/volume ] in Serum or Plasma 136-145 [facility] Specific gravity Test strip (U) [Rel density]Ordered By: Francisco Duncan on 08-11-2024 Specific gravity (U) [Rel density] Specific gravity of Urine by Test strip 1.001-1.03 0 [facility] Thyroid Stimulating Hormoneo n 08-11-2024 TSH Qn 4.18 m[IU]/L Normal 0.45-5.33 [facility] Comment on above: Order Comment: Comme nt add Performed By: #### T SH3, MG, [id number], [id number] ####[facility] [address] [place] [id number] [facility] Thyrotropin [Units/volume] i n Serum or PlasmaOrdered By: Marge Andino on 08-11-2024 TSH Qn Thyrotropin [Units/volume] in Serum or Plasma 0.45-5.33 [facility] Transferrin [Mass/volume] in Serum or PlasmaOrdered By: Marge Andino on 08-11-2024 Transferrin [Mass/Vol] Transferrin [Mass /volume] in Serum or Plasma 203-362 [facility] Troponin I High Sensitivityo n 08-11-2024 Troponin I High Sensitivity 6 Normal 0-20 [facility] Comment on above: Result Comment: The Troponin units of report have been changed to meet the Chest Pain Accreditation requirement, element EC5.M1l2. Troponin units are changed from pg/ml to ng/L. Also, the decimal is removed and results are in whole numbers.PERFORMED BY:[facility] [place], [place] [phone] MEDICAL DIRECTORMIKE CABAN M.D. Performed By: #### D IFF CBC, CK, PT, PTT, CMP, HS TROP ####[facility] [place] [address] [facility] Troponin I.cardiac [Mass/vol ume] in Serum or Plasma by Detection limit <= 0.01 ng/Ordered By: Francisco Duncan on 08-11-2024 Troponin I.cardiac DL <= 0.01 ng/mL [Mass/Vol] Troponin I.cardiac [Mass/volume] in Serum or Plasma by Detection limit <= 0.01 ng/ 0-20 [facility] Comment on above: The Troponin units o [...] [Mass/volume] in Serum or Plasma High 7-25 [facility] Urinalysison 08-11-2024 Appearance (U) Clear Normal Clear [facility] Comment on above: Order Comment: Name Collection Type:: Voided Performed By: #### U A ####[address] [address] [place] Bilirubin,Urine Negative Normal Negative [facility] Comment on above: Order Comment: Name Collection Type:: Voided Performed By: #### U A ####[address] [address] [facility] Color (U) Light-Yellow Normal Yellow [facility] Comment on above: Order Comment: Name Collection Type:: Voided Performed By: #### U A ####[address] [address] [facility] Glucose Ql (U) 500 mg/dL High Normal [facility] Comment on above: Order Comment: Name Collection Type:: Voided Performed By: #### U A ####[address] [address] [facility] Ketones Ql (U) Negative Normal Negative [facility] Comment on above: Order Comment: Name Collection Type:: Voided Performed By: #### U A ####[address] [address] [facility] Leukocyte esterase Test strip Ql (U) Negative Normal Negative [facility] Comment on above: Order Comment: Name Collection Type:: Voided Performed By: #### U A ####[address] [address] [facility] Nitrite,Urine Negative Normal Negative [facility] Comment on above: Order Comment: Name Collection Type:: Voided Performed By: #### U A ####[address] [address] [facility] Occult Blood,Urine Negative Normal Negative [facility] Comment on above: Order Comment: Name Collection Type:: Voided Result Comment: PERF ORMED BY:[place] [address] [place], [place] [phone] MEDICAL DIRECTORMIKE CABAN M.D. Performed By: #### U A ####[address] [address] [facility] pH (U) 5.5 [pH] Normal 5.0-9.0 [facility] Comment on above: Order Comment: Name Collection Type:: Voided Performed By: #### U A ####[address] Protein,Urine Negative Normal Negative [facility] Comment on above: Order Comment: Name Collection Type:: Voided Performed By: #### U A ####[address] Specificy [place],Urine 1.024 Normal 1.001-1.03 0 [facility] Comment on above: Order Comment: Name Collection Type:: Voided Performed By: #### U A ####[address] Urobilinogen,Urine Normal Normal Normal [facility] Comment on above: Order Comment: Name Collection Type:: Voided Performed By: #### U A ####[address] Urobilinogen Test strip (U) [Mass/Vol]Ordered By: Francisco Duncan on 08-11-2024 Urobilinogen (U) [Mass/Vol] Urobilinogen [Mass/volume] in Urine by Test strip Normal [facility] Vit. B12/Folate Profileon Cobalamin (Vitamin B12) [Mass/Vol] 129 pg/mL Low 180-914 [facility] Comment on above: Order Comment: Comme nt add Performed By: #### T SH3, MG, [id number], [id number] ####[address] Folate 14.0 ng/mL Normal >5.9 [facility] Comment on above: Order Comment: Comme nt add Result Comment: Aure te reference range: >5.9 ng/ml The WHO technical consultation on folate and vitamin b12 deficiencies has determined that folate concentrations less than 4 ng/ml are considered deficient. Performed By: #### T SH3, MG, [id number], [id number] ####[facility] [id number] [place] [address] [facility] Vitamin B12 ser/plasOrdered By: Marge Andino on 08-11-2024 Cobalamin (Vitamin B12) [Mass/Vol] Vitamin B12 ser/plas Low 180-914 [facility] Vitamin D 25 Hydroxy Totalon 08-11-2024 Vitamin D 25 Hydroxy Total 15.0 ng/mL Low 30-100 [facility] Comment on above: Order Comment: Comme nt add Result Comment: SUBHA MIN D STATUS 25(OH)VITAMIN D RANGE (ng/mL) Deficient <20 Insufficient 20 to <30 Sufficient 30 to 100 Reference: Ibrahima Reyes, Kasey LONG, et al. Evaluation,treatment, and prevention of vitamin D deficiency; an Endocrine Society clinical practice guideline. JCEM. 2010; 96(7):1911-.PERFORMED BY:[address] [place], [place] [id number] MEDICAL DIRECTORMIKE CABAN M.D. Performed By: #### T SH3, MG, [id number], [id number] ####[facility] [id number] [place] [address] [facility] Vitamin D+Metabolites [Mass/ volume] in Serum or PlasmaOrdered By: Marge Andino on 08-11-2024 Vitamin D+Metabolites [Mass/Vol] Vitamin D+Metabolites [Mass/volume] in Serum or Plasma Low 30-100 [facility] Comment on above: VITAMIN D STATUS 25( [...] in Blood by Automated count High 4.1-10.5 [facility] X-ray reportOrdered By: Jose Lind on 08-11-2024 Study report [facility] Main [place] [address] [place] [address] XRay Report Signed Patient: Myra Pickard SR MR#: [id number] : 1965 Acct:[id number] Age/Sex: 59 / M ADM Date: 5 Loc: Room: [address] [place] [address] Type: ADM IN Attending Dr: Kevon Viera [...] Sudeep Lind M.D.08/11/2024 10:06 AM Dictation Location: [place] [address] Transcribed By: [facility] 08/11/24 1006 Dictated By: Sudeep Lind DO 08/11/24 1006 Signed By: 08/11/24 1006 [facility] XR chest 1V portableon 08-11 XR chest 1V portable Normal [facility] aPTT in Platelet poor plasma by Coagulation assayOrdered By: Francisco Duncan on 08-11-2024 aPTT Coag (PPP) [Time] Activated partial thromboplastin time (aPTT) in platelet poor plasma by coagulation a 25.1-36.5 [facility] Comment on above: A hematocrit value g reater than 55% may lead to inaccurate results in coagulation testing. Patients having hematocrit values >55% require a special collection tube for coagulation studies. Please contact the laboratory at [phone] for redraw instructions. pH Test strip (U)Ordered By: Francisco Duncan on 08-11-2024 pH (U) pH of Urine by Test strip 5.0-9.0 [facility] Urology Office/Clinic Noteon 08-06-2024 Urology Office/Clinic Note Urology Office/Clinic Note Chief Complaint Patient is here for scrotal pain HPI Staff Patient is here for f/u to [facility] ER 07/24/24 due to scrotal pain. They [...] w Right BKA. 1. Orchitis (N45.2: Orchitis) [facility] ER 07/24/24 w sudden onset scrotal/groin pain. [...] pain meds. Will provide limited rx Ultram. 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 08/02/2024 09:33:52 I certify that I have reviewed the OARRS report and all PDMP information in this chart. Follow-up With When Contact Information [facility] Additional Instructions: Only if needed/new problems arise. [...] failure) GERD [Gastroesophageal reflux disease] HTN [Hypertension] MD (myocardial infarction) NIDDM Procedure/Surgical History BKA - [...] cap(s), Oral, (more content not included)... Normal [facility] Comment on above: Result Comment: Elec tronically Signed By: RASHI KURTZ, MARYBEL Marcum.nile\Date and Time Signed: 08/06/24 12:28 EST Basophils Auto (Bld) [#/Vol] on 07-24-2024 Basophils (Bld) [#/Vol] Automated basophil count 0.0-0.1 [facility] Basophils/100 WBC Auto (Bld) on 07-24-2024 Basophils/100 WBC (Bld) Automated basophil % 0.2-2.0 [facility] Eosinophils/100 WBC Auto (Bl d)on 07-24-2024 Eosinophils/100 WBC (Bld) Automated eosinophil % 0.9-7.0 [facility] Erythrocyte distribution wid th Auto (RBC) [Ratio]on 07-24-2024 Erythrocyte distribution width (RBC) [Ratio] Erythrocyte distribution width [Ratio] by Automated count High 11.0-15.0 [facility] Estimated glomerular filtrat ion rate (GFR) non- Americanon 07-24-2024 GFR/1.73 sq M.predicted among non-blacks MDRD (S/P/Bld) [Vol rate/Area] Estimated glomerular filtration rate (GFR) non- Low >=60 mL/min/1.7 3m 2 [facility] Globulin Calc (S) [Mass/Vol] on 07-24-2024 Globulin (S) [Mass/Vol] Serum globulin measurement by calculation (mass/volume) [facility] Hematocrit Auto (Bld) [Volum e fraction]on 07-24-2024 Hematocrit (Bld) [Volume fraction] Hematocrit [Volume Fraction] of Blood by Automated count Low 42.0-54.0 [facility] Hemoglobin [Mass/volume] in Bloodon 07-24-2024 Hemoglobin (Bld) [Mass/Vol] Hemoglobin [Mass/volume] in Blood Low 14.0-18.0 [facility] Laboratory - Chemistry and C hemistry - challengeon 07-24-2024 Albumin [Mass/Vol] 3.3 g/dL Low 3.4-5.0 [facility] ALP [Catalytic activity/Vol] 111 U/L 46-116 [facility] ALT [Catalytic activity/Vol] 16 U/L 16-63 [facility] AST [Catalytic activity/Vol] 11 U/L Low 15-37 [facility] Bilirubin [Mass/Vol] 0.4 mg/dL 0.2-1.0 [facility] Calcium [Mass/Vol] 8.4 mg/dL Low 8.5-10.1 [facility] Chloride [Moles/Vol] 102 mmol/L 98-107 [facility] CO2 [Moles/Vol] 26.3 mmol/L 21.0-32.0 [facility] Creatinine [Mass/Vol] 2.28 mg/dL High 0.70-1.30 [facility] GFR/1.73 sq M.predicted MDRD (S/P/Bld) [Vol rate/Area] 36 mL/min/{1.73_m2} Low >=60 mL/min/1.7 3m 2 [facility] Glucose [Mass/Vol] 177 mg/dL High 74-106 [facility] Lactate [Moles/Vol] 1.8 mmol/L 0.4-2.0 [facility] Potassium [Moles/Vol] 3.4 mmol/L Low 3.5-5.1 [facility] Protein [Mass/Vol] 7.0 g/dL 6.4-8.2 [facility] Sodium [Moles/Vol] 139 mmol/L 136-145 [facility] Urea nitrogen [Mass/Vol] 22.0 mg/dL High 7.0-18.0 [facility] Urea nitrogen/Creatinine [Mass ratio] 9.6 mg/mg [facility] Laboratory - Hematology and Cell countson 07-24-2024 Immature granulocytes/100 WBC (Bld) 0.3 % 0.0-0.5 [facility] Leukocytes [#/volume] correc jorge for nucleated erythrocytes in Blood by Automated counon 07-24-2024 WBC corrected for nucl RBC Auto (Bld) [#/Vol] Leukocytes [#/volume] corrected for nucleated erythrocytes in Blood by Automated coun 4.0-11.0 [facility] Lymphocytes Auto (Bld) [#/Vo l]on 07-24-2024 Lymphocytes (Bld) [#/Vol] Lymphocytes [#/volume] in Blood by Automated count 1.2-3.8 [facility] Lymphocytes/100 WBC Auto (Bl d)on 07-24-2024 Lymphocytes/100 WBC (Bld) Lymphocytes/100 leukocytes in Blood by Automated count 20.5-60.0 [facility] MCH Auto (RBC) [Entitic mass ]on 07-24-2024 MCH (RBC) [Entitic mass] MCH [Entitic mass] by Automated count Low 25.9-34.0 [facility] MCHC Auto (RBC) [Mass/Vol]on 07-24-2024 MCHC (RBC) [Mass/Vol] MCHC [Mass/volume] by Automated count Low 29.9-35.2 [facility] MCV Auto (RBC) [Entitic vol] on 07-24-2024 MCV (RBC) [Entitic vol] MCV [Entitic volume] by Automated count Low 80.0-94.0 [facility] Monocytes Auto (Bld) [#/Vol] on 07-24-2024 Monocytes (Bld) [#/Vol] Automated blood monocyte count High 0.3-0.8 [facility] Monocytes/100 WBC Auto (Bld) on 07-24-2024 Monocytes/100 WBC (Bld) Automated monocyte % 1.7-12.0 [facility] Neutrophils Auto (Bld) [#/Vo l]on 07-24-2024 Neutrophils (Bld) [#/Vol] Neutrophils [#/volume] in Blood by Automated count 1.4-6.5 [facility] Neutrophils/100 WBC Auto (Bl d)on 07-24-2024 Neutrophils/100 WBC (Bld) Automated neutrophil % 43.0-75.0 [facility] No Panel Informationon 07-24 Eosinophils # (Auto) 0.4 10 3/uL 0.0-0.7 [facility] Immature Granulocyte # (Auto) 0.03 10 3/uL 0.00-0.03 [facility] Platelet mean volume Auto (B ld) [Entitic vol]on 07-24-2024 Platelet mean volume (Bld) [Entitic vol] Platelet mean volume [Entitic volume] in Blood by Automated count 9.5-13.5 [facility] Platelets Auto (Bld) [#/Vol] on 07-24-2024 Platelets (Bld) [#/Vol] Platelets [#/volume] in Blood by Automated count 150-450 [facility] RBC Auto (Bld) [#/Vol]on RBC (Bld) [#/Vol] Erythrocytes [#/volu me] in Blood by Automated count 4.70-6.10 [facility] Serum or plasma albumin/glob ulin mass ratioon 07-24-2024 Albumin/Globulin [Mass ratio] Serum or plasma albumin/globulin mass ratio [facility] Serum or plasma anion gap de terminationon 07-24-2024 Anion gap [Moles/Vol] Serum or plasma an ion gap determination [facility] Reminderson 07-05-2024 Reminders Reminders From: Clair Valverde To: EU - Administrative; Sent: 07/05/2024 09:08:37 EST Show up: 02/02/2025 10:08:00 EDT Subject: 1 yr f/u w/psa Due Date/Time: 05/27/2025 09:08:00 EST Reminder/Recall Pt needs scheduled for 1yr f/u w/psa w/PRW in May 2025. Normal [facility] PSA Totalon 05-28-2024 Prostate specific Ag [Mass/Vol] 1.0 ng/mL Normal 0.1-3.5 [facility] Comment on above: Result Comment: The concentration of PSA determined by different manufacturers can vary due to differences in assay methods and reagent specificity. Values obtained from different assay methods cannot be used interchangeably. The methodology used for this result was chemiluminescence using [employer] Access Hybritech PSA reagent. Performed By: #### 1 [id number] #### [facility] [address] [place] [address] Ambulatory Visit Summaryon 1 07-28-2023 Ambulatory Visit [...] [facility] [address], [place] [address] [phone] Medications What How Much When Instructions Unchanged tamsulosin (tamsulosin 0.4 mg Cap) 1 Capsules By Mouth 2 times a day Pickup at [facility]/pharmacy #[id number] Unchanged albuterol (ProAir HFA) Inhalation Every 6 [...] concerns Unchanged (more content not included)... Normal [facility] Urology Office/Clinic Noteon 12-23-2024 Urology [...] urination. -Cont Tamsulosin bid. Refills sent to [facility]. 2. Screening PSA (prostate specific antigen) (Z12.5: [...] Blum, URL [facility] [address], [place] [address] [phone] Additional Instructions: 1 yr Patient Education Benign [...] failure) GERD [Gastroesophageal reflux disease] HTN [Hypertension] MD (myocardial infarction) NIDDM Procedure/Surgical History BKA - [...] Daily me (more content not included)... Normal [facility] Comment on above: Result Comment: Elec tronically Signed By: Yeyo ROWE MD\.br\Date and Time Signed: 05/27/24 16:02 EST\.br\Electronically Co-Signed By: Sharri Mora\.br\Date and Time Co-Signed: 05/27/24 16:01 EST Glucose Glucometer (BldC) [M ass/Vol]Ordered By: Mike Burleson on 04-23-2024 Glucose [Mass/Vol] Capillary blood gluc ose measurement by glucometer (mass/volume) [facility] Comment on above: Random Glucose Refer ence Range is dependent on time and content of last meal. Glucose of more than 200 mg/dL in a nonstressed, ambulatory subject supports the diagnosis of Diabetes Mellitus. Glucose Poct Glucometerson 1 06-23-2023 Commemt1 Glu2: Cleaned Meter Normal [facility] Comment on above: Result Comment: PERF ORMED BY:[facility] [place], [place] [phone] MEDICAL DIRECTORMIKE CABAN M.D. Performed By: #### G LULS ####Point of Care testing, Glucose [Mass/Vol] 212 mg/dL Normal [facility] Comment on above: Result Comment: [place] Glucose Reference Range is dependent on time and content of last meal. Glucose of more than 200 mg/dL in a nonstressed, ambulatory subject supports the diagnosis of Diabetes Mellitus. Performed By: #### G LULS ####Point of Care testing, Guy 04-23-2024 L Normal [facility] No Panel InformationOrdered By: Mike Burleson on 04-23-2024 Bedside Glucose Comment Glu2: cleaned meter [facility] HbA1c HPLC (Bld) [Mass fract ion]on 04-04-2024 HbA1c (Bld) [Mass fraction] Hemoglobin A1c/Hemoglobin.total in Blood by HPLC [facility] Alanine aminotransferase [En zymatic activity/volume] in Serum or PlasmaOrdered By: João Powell on 03-13-2024 ALT [Catalytic activity/Vol] 38 U/L Normal [facility] Comment on above: Performed By: #### C MP, PHOS, CBC, MG ####[facility] [id number] [place] [address] [facility] ALT [Catalytic activity/Vol] Alanine aminotransferase [Enzymatic activity/volume] in Serum or Plasma [facility] Albumin [Mass/volume] in Ser um or Plasma by Bromocresol green (BCG) dye binding methoOrdered By: João Powell on 03-13-2024 Albumin BCG dye [Mass/Vol] 3.6 g/dL 3.5-5.7 [facility] Albumin BCG dye [Mass/Vol] Albumin [Mass/volume] in Serum or Plasma by Bromocresol green (BCG) dye binding metho 3.5-5.7 [facility] Alkaline phosphatase [Enzyma tic activity/volume] in Serum or PlasmaOrdered By: João Powell on 03-13-2024 ALP [Catalytic activity/Vol] 313 U/L High 34-104 [facility] Comment on above: Performed By: #### C MP, PHOS, CBC, MG ####[address] ALP [Catalytic activity/Vol] Alkaline phosphatase [Enzymatic activity/volume] in Serum or Plasma High 34-104 [facility] Aspartate aminotransferase [ Enzymatic activity/volume] in Serum or PlasmaOrdered By: João Powell on 03-13-2024 AST [Catalytic activity/Vol] 28 U/L Normal 39 [facility] Comment on above: Performed By: #### C MP, PHOS, CBC, MG ####[address] AST [Catalytic activity/Vol] Aspartate aminotransferase [Enzymatic activity/volume] in Serum or Plasma [facility] Automated basophil %Ordered By: João Powell on 03-13-2024 Basophils/100 WBC (Bld) 1.2 % Normal . [facility] Comment on above: Performed By: #### C MP, PHOS, CBC, MG ####[address] Automated basophil countOrde red By: João Powell on 03-13-2024 Basophils (Bld) [#/Vol] 0.1 10*3/uL Normal 0.0-0.2 [facility] Comment on above: Result Comment: PERF ORMED BY:[address] [place], [place] [id number] MEDICAL BRISA LOBATO M.D. Performed By: #### C MP, PHOS, CBC, MG ####[address] Automated blood monocyte cou ntOrdered By: João Powell on 03-13-2024 Monocytes (Bld) [#/Vol] 0.9 10*3/uL High 0.0-0.8 [facility] Comment on above: Performed By: #### C MP, PHOS, CBC, MG ####[address] [place] [address] [place] Automated eosinophil %Ordere d By: João Powell on 03-13-2024 Eosinophils/100 WBC (Bld) 3.0 % Normal . [facility] Comment on above: Performed By: #### C MP, PHOS, CBC, MG ####[address] Automated eosinophil countOr dered By: João Powell on 03-13-2024 Eosinophils (Bld) [#/Vol] 0.2 10*3/uL Normal 0.0-0.45 [facility] Comment on above: Performed By: #### C MP, PHOS, CBC, MG ####[address] Automated monocyte %Ordered By: João Powell on 03-13-2024 Monocytes/100 WBC (Bld) 14.4 % Normal . [facility] Comment on above: Performed By: #### C MP, PHOS, CBC, MG ####[address] Automated neutrophil %Ordere d By: João Powell on 03-13-2024 Neutrophils/100 WBC (Bld) 66.7 % Normal . [facility] Comment on above: Performed By: #### C MP, PHOS, CBC, MG ####[address] Basophils Auto (Bld) [#/Vol] Ordered By: João Powell on 03-13-2024 Basophils (Bld) [#/Vol] Automated basophil count 0.0-0.2 [facility] Basophils/100 WBC Auto (Bld) Ordered By: João Powell on 03-13-2024 Basophils/100 WBC (Bld) Automated basophil % . [facility] Bilirubin.total [Mass/volume ] in Serum or PlasmaOrdered By: João Powell on 03-13-2024 Bilirubin [Mass/Vol] 0.9 mg/dL Normal 0.3-1.0 [facility] Comment on above: Performed By: #### C MP, PHOS, CBC, MG ####[facility] [id number] [place] [address] [facility] Bilirubin [Mass/Vol] Bilirubin.total [Mass/volume] in Serum or Plasma 0.3-1.0 [facility] Calcium [Mass/volume] in Ser um or PlasmaOrdered By: João Powell on 03-13-2024 Calcium [Mass/Vol] 9.1 mg/dL Normal 8.6-10.3 [facility] Comment on above: Performed By: #### C MP, PHOS, CBC, MG ####[facility] [id number] [place] [address] [facility] Calcium [Mass/Vol] Calcium [Mass/volume ] in Serum or Plasma 8.6-10.3 [facility] Capillary blood glucose ashley urement by glucometer (mass/volume)Ordered By: Remberot Ervin on 03-13-2024 Glucose [Mass/Vol] 155 mg/dL Normal [facility] Comment on above: Random Glucose Refer ence Range is dependent on time and content of last meal. Glucose of more than 200 mg/dL in a nonstressed, ambulatory subject supports the diagnosis of Diabetes Mellitus. Result Comment: [place] Glucose Reference Range is dependent on time and content of last meal. Glucose of more than 200 mg/dL in a nonstressed, ambulatory subject supports the diagnosis of Diabetes Mellitus.PERFORMED BY:[facility] [place], [place] [phone] MEDICAL DIRECTORCLIFFORD LOBATO M.D. Performed By: #### G LULS ####Point of Care testing, Carbon dioxide, total [Moles /volume] in Serum or PlasmaOrdered By: João Powell on 03-13-2024 CO2 [Moles/Vol] 23.9 mmol/L Normal 21.0-31.0 [facility] Comment on above: Performed By: #### C MP, PHOS, CBC, MG ####[facility] [id number] [place] [address] [facility] CO2 [Moles/Vol] Carbon dioxide, tota l [Moles/volume] in Serum or Plasma 21.0-31.0 [facility] Chloride [Moles/volume] in S ilia or PlasmaOrdered By: João Powell on 03-13-2024 Chloride [Moles/Vol] 101 mmol/L Normal 98-107 [facility] Comment on above: Performed By: #### C MP, PHOS, CBC, MG ####[place] [id number] [address] Chloride [Moles/Vol] Chloride [Moles/vol ume] in Serum or Plasma 98-107 [facility] Complete Blood Count Auto Di ffon 03-13-2024 Mean Corpuscular HGB Conc 31.7 g/dL Low 32.5-35.6 [facility] Comment on above: Performed By: #### C MP, PHOS, CBC, MG ####[address] NRBC% 0.1 /100{WBC} Normal 0-0.5 [facility] Comment on above: Performed By: #### C MP, PHOS, CBC, MG ####[place] [id number] [place] [id number] [facility] Comprehensive Metabolic Pane guy 03-13-2024 Albumin [Mass/Vol] 3.6 g/dL Normal 3.5-5.7 [facility] Comment on above: Performed By: #### C MP, PHOS, CBC, MG ####[address] Creatinine Clr Calc Pharmacy 56.79 Normal [facility] Comment on above: Performed By: #### C MP, PHOS, CBC, MG ####[place] [address] [place] [id number] [facility] GFR/1.73 sq M.predicted MDRD (S/P/Bld) [Vol rate/Area] 53.205 mL/min/{1.73_m2} Normal [facility] Comment on above: Performed By: #### C MP, PHOS, CBC, MG ####[place] [id number] [facility] Creatinine [Mass/volume] in Serum or PlasmaOrdered By: João Powell on 03-13-2024 Creatinine [Mass/Vol] 1.51 mg/dL High 0.70-1.30 [facility] Comment on above: Performed By: #### C MP, PHOS, CBC, MG ####[place] [address] [address] Creatinine [Mass/Vol] Creatinine [Mass/v olume] in Serum or Plasma High 0.70-1.30 [facility] Eosinophils Auto (Bld) [#/Vo l]Ordered By: João Powell on 03-13-2024 Eosinophils (Bld) [#/Vol] Automated eosinophil count 0.0-0.45 [facility] Eosinophils/100 WBC Auto (Bl d)Ordered By: João Powell on 03-13-2024 Eosinophils/100 WBC (Bld) Automated eosinophil % . [facility] Erythrocyte distribution wid th Auto (RBC) [Ratio]Ordered By: João Powell on 03-13-2024 Erythrocyte distribution width (RBC) [Ratio] Erythrocyte distribution width [Ratio] by Automated count High 12.0-14.8 [facility] Erythrocyte distribution wid th [Ratio] by Automated countOrdered By: João Powell on 03-13-2024 Erythrocyte distribution width (RBC) [Ratio] 24.5 % High 12.0-14.8 [facility] Comment on above: Performed By: #### C MP, PHOS, CBC, MG ####[address] Erythrocytes [#/volume] in B lood by Automated countOrdered By: João Powell on 03-13-2024 RBC (Bld) [#/Vol] 4.12 10*6/uL Normal 3.90-5.60 [facility] Comment on above: Performed By: #### C MP, PHOS, CBC, MG ####[place] [id number] [address] Globulin Calc (S) [Mass/Vol] Ordered By: João Powell on 03-13-2024 Globulin (S) [Mass/Vol] Serum globulin measurement by calculation (mass/volume) [facility] Glucose Glucometer (BldC) [M ass/Vol]Ordered By: Remberto Ervin on 03-13-2024 Glucose [Mass/Vol] Capillary blood gluc ose measurement by glucometer (mass/volume) [facility] Comment on above: Random Glucose Refer ence Range is dependent on time and content of last meal. Glucose of more than 200 mg/dL in a nonstressed, ambulatory subject supports the diagnosis of Diabetes Mellitus. Glucose Poct Glucometerson 1 Glucose [Mass/Vol] 162 mg/dL Normal [facility] Comment on above: Result Comment: [place] Glucose Reference Range is dependent on time and content of last meal. Glucose of more than 200 mg/dL in a nonstressed, ambulatory subject supports the diagnosis of Diabetes Mellitus.PERFORMED BY:[facility] [place], [place] [phone] MEDICAL DIRECTORCLIFFORD LOBATO M.D. Performed By: #### G LULS ####Point of Care testing, Glucose [Mass/volume] in Ser um or PlasmaOrdered By: João Powell on 03-13-2024 Glucose [Mass/Vol] 149 mg/dL High 70-100 [facility] Comment on above: ADA recommended refe rence rangeRandom Glucose Reference Range is dependent on time and content of last meal. Glucose of more than 200 mg/dL in a nonstressed, ambulatory subject supports the diagnosis of Diabetes Mellitus. Result Comment: Goessel om Glucose Reference Range is dependent on time and content of last meal. Glucose of more than 200 mg/dL in a nonstressed, ambulatory subject supports the diagnosis of Diabetes Mellitus. ADA recommended reference range Performed By: #### C MP, PHOS, CBC, MG ####[facility] [id number] [place] [address] [facility] Glucose [Mass/Vol] Glucose [Mass/volume ] in Serum or Plasma High 70-100 [facility] Comment on above: ADA recommended refe rence rangeRandom Glucose Reference Range is dependent on time and content of last meal. Glucose of more than 200 mg/dL in a nonstressed, ambulatory subject supports the diagnosis of Diabetes Mellitus. Hematocrit Auto (Bld) [Volum e fraction]Ordered By: João Powell on 03-13-2024 Hematocrit (Bld) [Volume fraction] Hematocrit [Volume Fraction] of Blood by Automated count Low 38.8-50.0 [facility] Hematocrit [Volume Fraction] of Blood by Automated countOrdered By: João Powell on 03-13-2024 Hematocrit (Bld) [Volume fraction] 29.9 % Low 38.8-50.0 [facility] Comment on above: Performed By: #### C MP, PHOS, CBC, MG ####[facility] [id number] Hemoglobin [Mass/volume] in BloodOrdered By: João Powell on 03-13-2024 Hemoglobin (Bld) [Mass/Vol] 9.5 g/dL Low 13.0-17.0 [facility] Comment on above: Performed By: #### C MP, PHOS, CBC, MG ####[address] Hemoglobin (Bld) [Mass/Vol] Hemoglobin [Mass/volume] in Blood Low 13.0-17.0 [facility] Leukocytes [#/volume] correc jorge for nucleated erythrocytes in Blood by Automated counOrdered By: João Powell on 03-13-2024 WBC corrected for nucl RBC Auto (Bld) [#/Vol] 6.0 10*3/uL 4.1-10.5 [facility] WBC corrected for nucl RBC Auto (Bld) [#/Vol] Leukocytes [#/volume] corrected for nucleated erythrocytes in Blood by Automated coun 4.1-10.5 [facility] Leukocytes [#/volume] in Blo od by Automated countOrdered By: João Powell on 03-13-2024 WBC (Bld) [#/Vol] 6.0 10*3/uL Normal 4.1-10.5 [facility] Comment on above: Performed By: #### C MP, PHOS, CBC, MG ####[facility] [id number] Lymphocytes Auto (Bld) [#/Vo l]Ordered By: João Powell on 03-13-2024 Lymphocytes (Bld) [#/Vol] Lymphocytes [#/volume] in Blood by Automated count Low 1.00-4.8 [facility] Lymphocytes [#/volume] in Bl ood by Automated countOrdered By: João Powell on 03-13-2024 Lymphocytes (Bld) [#/Vol] 0.9 10*3/uL Low 1.00-4.8 [facility] Comment on above: Performed By: #### C MP, PHOS, CBC, MG ####[address] Lymphocytes/100 WBC Auto (Bl d)Ordered By: João Powell on 03-13-2024 Lymphocytes/100 WBC (Bld) Lymphocytes/100 leukocytes in Blood by Automated count . [facility] Lymphocytes/100 leukocytes i n Blood by Automated countOrdered By: João Powell on 03-13-2024 Lymphocytes/100 WBC (Bld) 14.7 % Normal . [facility] Comment on above: Performed By: #### C MP, PHOS, CBC, MG ####[address] MCH Auto (RBC) [Entitic mass ]Ordered By: João Powell on 03-13-2024 MCH (RBC) [Entitic mass] MCH [Entitic mass] by Automated count Low 27.5-35.2 [facility] MCH [Entitic mass] by Automa jorge countOrdered By: João Powell on 03-13-2024 MCH (RBC) [Entitic mass] 23.0 pg Low 27.5-35.2 [facility] Comment on above: Performed By: #### C MP, PHOS, CBC, MG ####[address] MCHC Auto (RBC) [Mass/Vol]Or dered By: João Powell on 03-13-2024 MCHC (RBC) [Mass/Vol] 31.7 g/dL Low 32.5-35.6 [facility] MCHC (RBC) [Mass/Vol] MCHC [Mass/volume] by Automated count Low 32.5-35.6 [facility] MCV Auto (RBC) [Entitic vol] Ordered By: João Powell on 03-13-2024 MCV (RBC) [Entitic vol] MCV [Entitic volume] by Automated count Low 83.5-101 [facility] MCV [Entitic volume] by Auto mated countOrdered By: João Powell on 03-13-2024 MCV (RBC) [Entitic vol] 72.6 fL Low 83.5-101 [facility] Comment on above: Performed By: #### C MP, PHOS, CBC, MG ####[id number] [place] [address] [facility] Magnesium [Mass/volume] in S ilia or PlasmaOrdered By: João Powell on 03-13-2024 Magnesium [Mass/Vol] 1.7 mg/dL Low 1.9-2.7 [facility] Comment on above: Result Comment: PERF ORMED BY:[address] [place], [place] [phone] MEDICAL DIRECTORCLIFFORD LOBATO M.D. Performed By: #### C MP, PHOS, CBC, MG ####[id number] [place] [address] [facility] Magnesium [Mass/Vol] Magnesium [Mass/vol ume] in Serum or Plasma Low 1.9-2.7 [facility] Monocytes Auto (Bld) [#/Vol] Ordered By: João Powell on 03-13-2024 Monocytes (Bld) [#/Vol] Automated blood monocyte count High 0.0-0.8 [facility] Monocytes/100 WBC Auto (Bld) Ordered By: João Powell on 03-13-2024 Monocytes/100 WBC (Bld) Automated monocyte % . [facility] Neutrophils Auto (Bld) [#/Vo l]Ordered By: João Powell on 03-13-2024 Neutrophils (Bld) [#/Vol] Neutrophils [#/volume] in Blood by Automated count 1.8-7.7 [facility] Neutrophils [#/volume] in Bl ood by Automated countOrdered By: João Powell on 03-13-2024 Neutrophils (Bld) [#/Vol] 4.0 10*3/uL Normal 1.8-7.7 [facility] Comment on above: Performed By: #### C MP, PHOS, CBC, MG ####[facility] [id number] [place] [address] [place] Neutrophils/100 WBC Auto (Bl d)Ordered By: João Powell on 03-13-2024 Neutrophils/100 WBC (Bld) Automated neutrophil % . [facility] [...] /100{WBC} 0-0.5 [facility] Nucleated RBC Auto Ql (Bld) Nucleated erythrocytes [Presence] in Blood by Automated count 0-0.5 [facility] Phosphate [Mass/volume] in S ilia or PlasmaOrdered By: João Powell on 03-13-2024 Phosphate [Mass/Vol] 3.0 mg/dL Normal 2.5-4.5 [facility] Comment on above: Performed By: #### C MP, PHOS, CBC, MG ####[facility] [id number] [place] [address] [facility] Phosphate [Mass/Vol] Phosphate [Mass/vol ume] in Serum or Plasma 2.5-4.5 [facility] Platelet mean volume Auto (B ld) [Entitic vol]Ordered By: João Powell on 03-13-2024 Platelet mean volume (Bld) [Entitic vol] Platelet mean volume [Entitic volume] in Blood by Automated count 6.6-10.1 [facility] Platelet mean volume [Entiti c volume] in Blood by Automated countOrdered By: João Powell on 03-13-2024 Platelet mean volume (Bld) [Entitic vol] 8.9 fL Normal 6.6-10.1 [facility] Comment on above: Performed By: #### C MP, PHOS, CBC, MG ####[address] [address] [facility] Platelets Auto (Bld) [#/Vol] Ordered By: João Powell on 03-13-2024 Platelets (Bld) [#/Vol] Platelets [#/volume] in Blood by Automated count 150-450 [facility] Platelets [#/volume] in Bloo d by Automated countOrdered By: João Powell on 03-13-2024 Platelets (Bld) [#/Vol] 197 10*3/uL Normal 150-450 [facility] Comment on above: Performed By: #### C MP, PHOS, CBC, MG ####[place] [id number] [facility] Potassium [Moles/volume] in Serum or PlasmaOrdered By: João Powell on 03-13-2024 Potassium [Moles/Vol] 3.9 mmol/L Normal 3.5-5.1 [facility] Comment on above: Performed By: #### C MP, PHOS, CBC, MG ####[id number] [facility] Potassium [Moles/Vol] Potassium [Moles/v olume] in Serum or Plasma 3.5-5.1 [facility] Protein [Mass/volume] in Ser um or PlasmaOrdered By: João Powell on 03-13-2024 Protein [Mass/Vol] 7.5 g/dL Normal 6.4-8.9 [facility] Comment on above: Performed By: #### C MP, PHOS, CBC, MG ####[address] [address] [facility] Protein [Mass/Vol] Protein [Mass/volume ] in Serum or Plasma 6.4-8.9 [facility] RBC Auto (Bld) [#/Vol]Ordere d By: João Powell on 03-13-2024 RBC (Bld) [#/Vol] Erythrocytes [#/volu me] in Blood by Automated count 3.90-5.60 [facility] Serum globulin measurement b y calculation (mass/volume)Ordered By: João Powell on 03-13-2024 Globulin (S) [Mass/Vol] 3.9 g/dL Normal [facility] Comment on above: Performed By: #### C MP, PHOS, CBC, MG ####[id number] Serum or plasma albumin/glob ulin mass ratioOrdered By: João Powell on 03-13-2024 Albumin/Globulin [Mass ratio] 0.9 {ratio} [facility] Comment on above: Performed By: #### C MP, PHOS, CBC, MG ####[address] Albumin/Globulin [Mass ratio] Serum or plasma albumin/globulin mass ratio [facility] Serum or plasma anion gap de terminationOrdered By: João Powell on 03-13-2024 Anion gap [Moles/Vol] 13.0 mmol/L Normal 6.0-15.0 [facility] Comment on above: Performed By: #### C MP, PHOS, CBC, MG ####[address] Anion gap [Moles/Vol] Serum or plasma an ion gap determination 6.0-15.0 [facility] Sodium [Moles/volume] in Ser um or PlasmaOrdered By: João Powell on 03-13-2024 Sodium [Moles/Vol] 134 mmol/L Low 136-145 [facility] Comment on above: Performed By: #### C MP, PHOS, CBC, MG ####[address] Sodium [Moles/Vol] Sodium [Moles/volume ] in Serum or Plasma Low 136-145 [facility] Urea nitrogen [Mass/volume] in Serum or PlasmaOrdered By: João Powell on 03-13-2024 Urea nitrogen [Mass/Vol] 18 mg/dL Normal 12-27 [facility] Comment on above: Performed By: #### C MP, PHOS, CBC, MG ####[address] Urea nitrogen [Mass/Vol] Urea nitrogen [Mass/volume] in Serum or Plasma 12-27 [facility] WBC Auto (Bld) [#/Vol]Ordere d By: João Powell on 03-13-2024 WBC (Bld) [#/Vol] Leukocytes [#/volume ] in Blood by Automated count 4.1-10.5 [facility] Complete Blood Count Auto Di ffon 03-12-2024 Basophils (Bld) [#/Vol] 0.0 10*3/uL Normal 0.0-0.2 [facility] Comment on above: Result Comment: PERF ORMED BY:[address] [place], [place] [phone] MEDICAL DIRECTORCLIFFORD LOBATO M.D. Performed By: #### C BC, CMP, PHOS, MG ####[address] Basophils/100 WBC (Bld) 0.8 % Normal . [facility] Comment on above: Performed By: #### C BC, CMP, PHOS, MG ####[address] Eosinophils (Bld) [#/Vol] 0.1 10*3/uL Normal 0.0-0.45 [facility] Comment on above: Performed By: #### C BC, CMP, PHOS, MG ####[address] Eosinophils/100 WBC (Bld) 1.7 % Normal . [facility] Comment on above: Performed By: #### C BC, CMP, PHOS, MG ####[address] Erythrocyte distribution width (RBC) [Ratio] 24.0 % High 12.0-14.8 [facility] Comment on above: Performed By: #### C BC, CMP, PHOS, MG ####[address] Hematocrit (Bld) [Volume fraction] 28.0 % Low 38.8-50.0 [facility] Comment on above: Performed By: #### C BC, CMP, PHOS, MG ####[address] Hemoglobin (Bld) [Mass/Vol] 9.0 g/dL Low 13.0-17.0 [facility] Comment on above: Performed By: #### C BC, CMP, PHOS, MG ####[address] Lymphocytes (Bld) [#/Vol] 0.7 10*3/uL Low 1.00-4.8 [facility] Comment on above: Performed By: #### C BC, CMP, PHOS, MG ####[address] Lymphocytes/100 WBC (Bld) 12.6 % Normal . [facility] Comment on above: Performed By: #### C BC, CMP, PHOS, MG ####[address] MCH (RBC) [Entitic mass] 23.1 pg Low 27.5-35.2 [facility] Comment on above: Performed By: #### C BC, CMP, PHOS, MG ####[address] MCV (RBC) [Entitic vol] 72.1 fL Low 83.5-101 [facility] Comment on above: Performed By: #### C BC, CMP, PHOS, MG ####[address] Mean Corpuscular HGB Conc 32.1 g/dL Low 32.5-35.6 [facility] Comment on above: Performed By: #### C BC, CMP, PHOS, MG ####[address] Monocytes (Bld) [#/Vol] 1.0 10*3/uL High 0.0-0.8 [facility] Comment on above: Performed By: #### C BC, CMP, PHOS, MG ####[address] Monocytes/100 WBC (Bld) 16.2 % Normal . [facility] Comment on above: Performed By: #### C BC, CMP, PHOS, MG ####[address] Neutrophils (Bld) [#/Vol] 4.0 10*3/uL Normal 1.8-7.7 [facility] Comment on above: Performed By: #### C BC, CMP, PHOS, MG ####[address] Neutrophils/100 WBC (Bld) 68.7 % Normal . [facility] Comment on above: Performed By: #### C BC, CMP, PHOS, MG ####[address] NRBC% 0.1 /100{WBC} Normal 0-0.5 [facility] Comment on above: Performed By: #### C BC, CMP, PHOS, MG ####[address] Platelet mean volume (Bld) [Entitic vol] 8.8 fL Normal 6.6-10.1 [facility] Comment on above: Performed By: #### C BC, CMP, PHOS, MG ####[address] Platelets (Bld) [#/Vol] 191 10*3/uL Normal 150-450 [facility] Comment on above: Performed By: #### C BC, CMP, PHOS, MG ####[address] RBC (Bld) [#/Vol] 3.89 10*6/uL Low 3.90-5.[address] [facility] Comment on above: Performed By: #### C BC, CMP, PHOS, MG ####[address] WBC (Bld) [#/Vol] 5.9 10*3/uL Normal 4.1-10.5 [facility] Comment on above: Performed By: #### C BC, CMP, PHOS, MG ####[address] Comprehensive Metabolic Pane guy 03-12-2024 Albumin [Mass/Vol] 3.5 g/dL Normal 3.5-5.7 [facility] Comment on above: Performed By: #### C BC, CMP, PHOS, MG ####[address] Albumin/Globulin [Mass ratio] 0.9 {ratio} Normal [facility] Comment on above: Performed By: #### C BC, CMP, PHOS, MG ####[address] ALP [Catalytic activity/Vol] 328 U/L High 34-104 [facility] Comment on above: Performed By: #### C BC, CMP, PHOS, MG ####[address] ALT [Catalytic activity/Vol] 46 U/L Normal 7-52 [facility] Comment on above: Performed By: #### C BC, CMP, PHOS, MG ####[address] Anion gap [Moles/Vol] 14.2 mmol/L Normal 6.0-15.0 [facility] Comment on above: Performed By: #### C BC, CMP, PHOS, MG ####[address] AST [Catalytic activity/Vol] 34 U/L Normal 13-39 [facility] Comment on above: Performed By: #### C BC, CMP, PHOS, MG ####[address] Bilirubin [Mass/Vol] 1.0 mg/dL Normal 0.3-1.0 [facility] Comment on above: Performed By: #### C BC, CMP, PHOS, MG ####[address] Calcium [Mass/Vol] 9.1 mg/dL Normal 8.6-10.3 [facility] Comment on above: Performed By: #### C BC, CMP, PHOS, MG ####[address] Chloride [Moles/Vol] 104 mmol/L Normal 98-107 [facility] Comment on above: Performed By: #### C BC, CMP, PHOS, MG ####[address] CO2 [Moles/Vol] 21.7 mmol/L Normal 21.0-31.0 [facility] Comment on above: Performed By: #### C BC, CMP, PHOS, MG ####[address] [id number] [facility] Creatinine [Mass/Vol] 1.46 mg/dL High 0.70-1.30 [facility] Comment on above: Performed By: #### C BC, CMP, PHOS, MG ####[address] Creatinine Clr Calc Pharmacy 58.74 Normal [facility] Comment on above: Performed By: #### C BC, CMP, PHOS, MG ####[id number] [place] GFR/1.73 sq M.predicted MDRD (S/P/Bld) [Vol rate/Area] 55.398 mL/min/{1.73_m2} Normal [facility] Comment on above: Performed By: #### C BC, CMP, PHOS, MG ####[address] [place] [id number] [facility] Globulin (S) [Mass/Vol] 3.7 g/dL Normal [facility] Comment on above: Performed By: #### C BC, CMP, PHOS, MG ####[address] [place] [id number] [facility] Glucose [Mass/Vol] 167 mg/dL High 70-100 [facility] Comment on above: Result Comment: [facility] Glucose Reference Range is dependent on time and content of last meal. Glucose of more than 200 mg/dL in a nonstressed, ambulatory subject supports the diagnosis of Diabetes Mellitus. ADA recommended reference range Performed By: #### C BC, CMP, PHOS, MG ####[address] [id number] [facility] Potassium [Moles/Vol] 3.9 mmol/L Normal 3.5-5.1 [facility] Comment on above: Performed By: #### C BC, CMP, PHOS, MG ####[id number] [facility] Protein [Mass/Vol] 7.2 g/dL Normal 6.4-8.9 [facility] Comment on above: Performed By: #### C BC, CMP, PHOS, MG ####[address] [id number] [facility] Sodium [Moles/Vol] 136 mmol/L Normal 136-145 [facility] Comment on above: Performed By: #### C BC, CMP, PHOS, MG ####[address] [place] [id number] [facility] Urea nitrogen [Mass/Vol] 19 mg/dL Normal 7-25 [facility] Comment on above: Performed By: #### C BC, CMP, PHOS, MG ####[place] [id number] [facility] Glucose Poct Glucometerson 1 Glucose [Mass/Vol] 174 mg/dL Normal [facility] Comment on above: Result Comment: [place] [facility] Glucose Reference Range is dependent on time and content of last meal. Glucose of more than 200 mg/dL in a nonstressed, ambulatory subject supports the diagnosis of Diabetes Mellitus.PERFORMED BY:[address] [address] [place], [place] [phone] MEDICAL DIRECTORCLIFFORD LOBATO M.D. Performed By: #### G LULS ####Point of Care testing, Glucose [Mass/Vol] 216 mg/dL Normal [facility] Comment on above: Result Comment: [place] Glucose Reference Range is dependent on time and content of last meal. Glucose of more than 200 mg/dL in a nonstressed, ambulatory subject supports the diagnosis of Diabetes Mellitus.PERFORMED BY:[address] [place]Mary[place], [place] [phone] MEDICAL BRISA LOBATO M.D. Performed By: #### G LULS ####Point of Care testing, Glucose [Mass/Vol] 230 mg/dL Normal [facility] Comment on above: Result Comment: [facility] Glucose Reference Range is dependent on time and content of last meal. Glucose of more than 200 mg/dL in a nonstressed, ambulatory subject supports the diagnosis of Diabetes Mellitus.PERFORMED BY:[address] [place], [place] [phone] MEDICAL BRISA LOBATO M.D. Performed By: #### G LULS ####Point of Care testing, Glucose [Mass/Vol] 179 mg/dL Normal [facility] Comment on above: Result Comment: [facility] Glucose Reference Range is dependent on time and content of last meal. Glucose of more than 200 mg/dL in a nonstressed, ambulatory subject supports the diagnosis of Diabetes Mellitus.PERFORMED BY:[address] [place], [place] [phone] MEDICAL BRISA LOBATO M.D. Performed By: #### G LULS ####Point of Care testing, Magnesiumon 03-12-2024 Magnesium [Mass/Vol] 2.0 mg/dL Normal 1.9-2.7 [facility] Comment on above: Result Comment: PERF ORMED BY:[address] [place], [place] [phone] MEDICAL DIRECTORCLIFOFRD LOBATO M.D. Performed By: #### C BC, CMP, PHOS, MG ####[address] Phosphoruson 03-12-2024 Phosphate [Mass/Vol] 2.5 mg/dL Normal 2.5-4.5 [facility] Comment on above: Performed By: #### C BC, CMP, PHOS, MG ####[address] Complete Blood Count Auto Di ffon 03-11-2024 Basophils (Bld) [#/Vol] 0.1 10*3/uL Normal 0.0-0.2 [facility] Comment on above: Result Comment: PERF ORMED BY:[address] [place], [place] [phone] MEDICAL DIRECTORCLIFFORD LOBATO M.D. Performed By: #### C BC, MG, PHOS, CMP ####[address] Basophils/100 WBC (Bld) 0.6 % Normal . [facility] Comment on above: Performed By: #### C BC, MG, PHOS, CMP ####[address] Eosinophils (Bld) [#/Vol] 0.2 10*3/uL Normal 0.0-0.45 [facility] Comment on above: Performed By: #### C BC, MG, PHOS, CMP ####[address] Eosinophils/100 WBC (Bld) 2.7 % Normal . [facility] Comment on above: Performed By: #### C BC, MG, PHOS, CMP ####[address] Erythrocyte distribution width (RBC) [Ratio] 24.0 % High 12.0-14.8 [facility] Comment on above: Performed By: #### C BC, MG, PHOS, CMP ####[address] Hematocrit (Bld) [Volume fraction] 27.6 % Low 38.8-50.0 [facility] Comment on above: Performed By: #### C BC, MG, PHOS, CMP ####[address] Hemoglobin (Bld) [Mass/Vol] 8.8 g/dL Low 13.0-17.0 [facility] Comment on above: Performed By: #### C BC, MG, PHOS, CMP ####[address] Lymphocytes (Bld) [#/Vol] 0.5 10*3/uL Low 1.00-4.8 [facility] Comment on above: Performed By: #### C BC, MG, PHOS, CMP ####[address] Lymphocytes/100 WBC (Bld) 5.3 % Normal . [facility] Comment on above: Performed By: #### C BC, MG, PHOS, CMP ####[address] MCH (RBC) [Entitic mass] 23.1 pg Low 27.5-35.2 [facility] Comment on above: Performed By: #### C BC, MG, PHOS, CMP ####[address] MCV (RBC) [Entitic vol] 72.1 fL Low 83.5-101 [facility] Comment on above: Performed By: #### C BC, MG, PHOS, CMP ####[address] Mean Corpuscular HGB Conc 32.0 g/dL Low 32.5-35.6 [facility] Comment on above: Performed By: #### C BC, MG, PHOS, CMP ####[address] Monocytes (Bld) [#/Vol] 0.9 10*3/uL High 0.0-0.8 [facility] Comment on above: Performed By: #### C BC, MG, PHOS, CMP ####[address] Monocytes/100 WBC (Bld) 10.5 % Normal . [facility] Comment on above: Performed By: #### C BC, MG, PHOS, CMP ####[address] Neutrophils (Bld) [#/Vol] 7.3 10*3/uL Normal 1.8-7.7 [facility] Comment on above: Performed By: #### C BC, MG, PHOS, CMP ####[address] Neutrophils/100 WBC (Bld) 80.9 % Normal . [facility] Comment on above: Performed By: #### C BC, MG, PHOS, CMP ####[address] NRBC% 0.0 /100{WBC} Normal 0-0.5 [facility] Comment on above: Performed By: #### C BC, MG, PHOS, CMP ####[address] Platelet mean volume (Bld) [Entitic vol] 8.8 fL Normal 6.6-10.1 [facility] Comment on above: Performed By: #### C BC, MG, PHOS, CMP ####[address] Platelets (Bld) [#/Vol] 201 10*3/uL Normal 150-450 [facility] Comment on above: Performed By: #### C BC, MG, PHOS, CMP ####[address] RBC (Bld) [#/Vol] 3.83 10*6/uL Low 3.90-5.[address] [facility] Comment on above: Performed By: #### C BC, MG, PHOS, CMP ####[address] WBC (Bld) [#/Vol] 9.0 10*3/uL Normal 4.1-10.5 [facility] Comment on above: Performed By: #### C BC, MG, PHOS, CMP ####[address] Comprehensive Metabolic Pane guy 03-11-2024 Albumin [Mass/Vol] 3.5 g/dL Normal 3.5-5.7 [facility] Comment on above: Performed By: #### C BC, MG, PHOS, CMP ####[address] Albumin/Globulin [Mass ratio] 0.9 {ratio} Normal The [facility] Comment on above: Performed By: #### C BC, MG, PHOS, CMP ####[address] ALP [Catalytic activity/Vol] 367 U/L High 34-104 [facility] Comment on above: Performed By: #### C BC, MG, PHOS, CMP ####[address] ALT [Catalytic activity/Vol] 59 U/L High 7-52 [facility] Comment on above: Performed By: #### C BC, MG, PHOS, CMP ####[address] Anion gap [Moles/Vol] 12.6 mmol/L Normal 6.0-15.0 Th e [facility] Comment on above: Performed By: #### C BC, MG, PHOS, CMP ####[place] [address] [place] [id number] [facility] AST [Catalytic activity/Vol] 52 U/L High 13-39 [facility] Comment on above: Performed By: #### C BC, MG, PHOS, CMP ####[place] [id number] [facility] Bilirubin [Mass/Vol] 1.5 mg/dL High 0.3-1.0 [facility] Comment on above: Result Comment: Samp les from patients who have taken Naproxen have shown spurious elevation in Total Bilirubin levels. A metabolite of Naproxen, O-desmethylnaproxen, has been shown to interfere with the Allan-Aleksandra method for measuring Total Bilirubin. Performed By: #### C BC, MG, PHOS, CMP ####[address] Calcium [Mass/Vol] 8.8 mg/dL Normal 8.6-10.3 [facility] Comment on above: Performed By: #### C BC, MG, PHOS, CMP ####[place] [id number] [facility] Chloride [Moles/Vol] 104 mmol/L Normal 98-107 [facility] Comment on above: Performed By: #### C BC, MG, PHOS, CMP ####[place] [id number] [facility] CO2 [Moles/Vol] 23.0 mmol/L Normal 21.0-31.0 The [facility] Comment on above: Performed By: #### C BC, MG, PHOS, CMP ####[place] [id number] [facility] Creatinine [Mass/Vol] 1.70 mg/dL High 0.70-1.30 [facility] Comment on above: Performed By: #### C BC, MG, PHOS, CMP ####[place] [id number] [facility] Creatinine Clr Calc Pharmacy 50.45 Normal [facility] Comment on above: Performed By: #### C BC, MG, PHOS, CMP ####[address] GFR/1.73 sq M.predicted MDRD (S/P/Bld) [Vol rate/Area] 46.151 mL/min/{1.73_m2} Normal The [facility] Comment on above: Performed By: #### C BC, MG, PHOS, CMP ####[address] Globulin (S) [Mass/Vol] 3.7 g/dL Normal The [facility] Comment on above: Performed By: #### C BC, MG, PHOS, CMP ####[address] Glucose [Mass/Vol] 150 mg/dL High 70-100 [facility] Comment on above: Result Comment: [facility] Glucose Reference Range is dependent on time and content of last meal. Glucose of more than 200 mg/dL in a nonstressed, ambulatory subject supports the diagnosis of Diabetes Mellitus. ADA recommended reference range Performed By: #### C BC, MG, PHOS, CMP ####[address] Potassium [Moles/Vol] 3.6 mmol/L Normal 3.5-5.1 [facility] Comment on above: Performed By: #### C BC, MG, PHOS, CMP ####[address] Protein [Mass/Vol] 7.2 g/dL Normal 6.4-8.9 [facility] Comment on above: Performed By: #### C BC, MG, PHOS, CMP ####[address] Sodium [Moles/Vol] 136 mmol/L Normal 136-145 [facility] Comment on above: Performed By: #### C BC, MG, PHOS, CMP ####[address] Urea nitrogen [Mass/Vol] 17 mg/dL Normal 7-25 [facility] Comment on above: Performed By: #### C BC, MG, PHOS, CMP ####[address] [address] [facility] Glucose Poct Glucometerson 1 Glucose [Mass/Vol] 193 mg/dL Normal [facility] Comment on above: Result Comment: [place] [facility] Glucose Reference Range is dependent on time and content of last meal. Glucose of more than 200 mg/dL in a nonstressed, ambulatory subject supports the diagnosis of Diabetes Mellitus.PERFORMED BY:[address] [place], [place] [phone] MEDICAL DIRECTORCLIFFORD LOBATO M.D. Performed By: #### G LULS ####Point of Care testing, Commemt1 Glu2: Cleaned Meter Normal The [facility] Comment on above: Result Comment: PERF ORMED BY:[address] [place], [place] [phone] MEDICAL DIRECTORCLIFFORD LOBATO M.D. Performed By: #### G LULS ####Point of Care testing, Glucose [Mass/Vol] 156 mg/dL Normal [facility] Comment on above: Result Comment: [place] [facility] Glucose Reference Range is dependent on time and content of last meal. Glucose of more than 200 mg/dL in a nonstressed, ambulatory subject supports the diagnosis of Diabetes Mellitus. Performed By: #### G LULS ####Point of Care testing, Commemt1 Glu2: Cleaned Meter Normal The [facility] Comment on above: Result Comment: PERF ORMED BY:[address] [place], [place] [phone] MEDICAL DIRECTORCLIFFORD LOBATO M.D. Performed By: #### G LULS ####Point of Care testing, Glucose [Mass/Vol] 185 mg/dL Normal [facility] Comment on above: Result Comment: [place] Glucose Reference Range is dependent on time and content of last meal. Glucose of more than 200 mg/dL in a nonstressed, ambulatory subject supports the diagnosis of Diabetes Mellitus. Performed By: #### G LULS ####Point of Care testing, Glucose [Mass/Vol] 178 mg/dL Normal [facility] Comment on above: Result Comment: [facility] Glucose Reference Range is dependent on time and content of last meal. Glucose of more than 200 mg/dL in a nonstressed, ambulatory subject supports the diagnosis of Diabetes Mellitus.PERFORMED BY:[place] [address] [place], [place] [phone] MEDICAL DIRECTORCLIFFORD LOBATO M.D. Performed By: #### G LULS ####Point of Care testing, Hep C Ab wRfx to Qnt PCRon 1 Hepatitis C Virus Antibody Non-Reactive Normal Non Reactive [facility] Comment on above: Performed By: #### H CV RX PCR ####[facility] , Interpretation Hepatitis C Comment Normal . [facility] Comment on above: Result Comment: Not infected with HCV unless early or acute infection is suspected (which may be delayed in an immunocompromised individual), or other evidence exists to indicate HCV infection. Performed at: - [place] [id number] Junior Web Designer: Uriel Borrero PhD, Phone: [phone] BY:[place] [address] [place], [place] [phone] MEDICAL DIRECTORCLIFFORD LOBATO M.D. Performed By: #### H CV RX PCR ####[facility] , Hepatitis C virus IgG Ab [Pr esence] in Serum or Plasma by ImmunoassayOrdered By: Mike Burleson on 03-11-2024 HCV IgG IA Ql Non-Reactive Non Reactive [facility] HCV IgG IA Ql Hepatitis C virus Ig G Ab [Presence] in Serum or Plasma by Immunoassay Non Reactive [facility] MR abdomen wo/w conon 2023 MR abdomen wo/w con Normal The [facility] Magnesiumon 03-11-2024 Magnesium [Mass/Vol] 1.8 mg/dL Low 1.9-2.7 [facility] Comment on above: Result Comment: PERF ORMED BY:[place] [address] [address] [place], [place] [phone] MEDICAL DIRECTORCLIFFORD LOBATO M.D. Performed By: #### C BC, MG, PHOS, CMP ####[address] [address] [facility] No Panel InformationOrdered By: João Powell on 03-11-2024 Bedside Glucose Comment Glu2: cleaned meter [facility] Glu2: cleaned meter [facility] No Panel InformationOrdered By: Mike Burleson on 03-11-2024 Hepatitis C Interpretation Comment . [facility] Comment on above: Not infected with HC V unless early or acute infection issuspected (which may be delayed in an immunocompromisedindividual), or other evidence exists to indicate HCVinfection.Performed at: - [facility] [id number] Director: Uriel Borrero PhD, Phone: [phone] Comment . [facility] Phosphoruson 03-11-2024 Phosphate [Mass/Vol] 3.4 mg/dL Normal 2.5-4.5 [facility] Comment on above: Performed By: #### C BC, MG, PHOS, CMP ####[place] [id number] [facility] US liveron 03-11-2024 US liver Normal [facility] Complete Blood Count Auto Di ffon 03-10-2024 Basophils (Bld) [#/Vol] 0.0 10*3/uL Normal 0.0-0.2 [facility] Comment on above: Result Comment: PERF ORMED BY:[address] [place], [place] [phone] MEDICAL DIRECTORCLIFFORD LOBATO M.D. Performed By: #### C MP, MG, PHOS, GGT, CBC ####[place] [id number] [facility] Basophils/100 WBC (Bld) 0.3 % Normal . [facility] Comment on above: Performed By: #### C MP, MG, PHOS, GGT, CBC ####[address] Eosinophils (Bld) [#/Vol] 0.1 10*3/uL Normal 0.0-0.45 [facility] Comment on above: Performed By: #### C MP, MG, PHOS, GGT, CBC ####[address] Eosinophils/100 WBC (Bld) 0.8 % Normal . [facility] Comment on above: Performed By: #### C MP, MG, PHOS, GGT, CBC ####[address] Erythrocyte distribution width (RBC) [Ratio] 23.4 % High 12.0-14.8 [facility] Comment on above: Performed By: #### C MP, MG, PHOS, GGT, CBC ####[address] Hematocrit (Bld) [Volume fraction] 25.8 % Low 38.8-50.0 [facility] Comment on above: Performed By: #### C MP, MG, PHOS, GGT, CBC ####[address] Hemoglobin (Bld) [Mass/Vol] 8.4 g/dL Low 13.0-17.0 [facility] Comment on above: Performed By: #### C MP, MG, PHOS, GGT, CBC ####[address] Lymphocytes (Bld) [#/Vol] 0.7 10*3/uL Low 1.00-4.8 [facility] Comment on above: Performed By: #### C MP, MG, PHOS, GGT, CBC ####[address] Lymphocytes/100 WBC (Bld) 4.9 % Normal . [facility] Comment on above: Performed By: #### C MP, MG, PHOS, GGT, CBC ####[address] MCH (RBC) [Entitic mass] 23.1 pg Low 27.5-35.2 [facility] Comment on above: Performed By: #### C MP, MG, PHOS, GGT, CBC ####[address] MCV (RBC) [Entitic vol] 71.2 fL Low 83.5-101 [facility] Comment on above: Performed By: #### C MP, MG, PHOS, GGT, CBC ####[address] Mean Corpuscular HGB Conc 32.5 g/dL Normal 32.5-35.6 [facility] Comment on above: Performed By: #### C MP, MG, PHOS, GGT, CBC ####[address] Monocytes (Bld) [#/Vol] 1.5 10*3/uL High 0.0-0.8 [facility] Comment on above: Performed By: #### C MP, MG, PHOS, GGT, CBC ####[address] Monocytes/100 WBC (Bld) 10.6 % Normal . [facility] Comment on above: Performed By: #### C MP, MG, PHOS, GGT, CBC ####[address] Neutrophils (Bld) [#/Vol] 11.4 10*3/uL High 1.8-7.7 [facility] Comment on above: Performed By: #### C MP, MG, PHOS, GGT, CBC ####[address] Neutrophils/100 WBC (Bld) 83.4 % Normal . [facility] Comment on above: Performed By: #### C MP, MG, PHOS, GGT, CBC ####[address] NRBC% 0.2 /100{WBC} Normal 0-0.5 [facility] Comment on above: Performed By: #### C MP, MG, PHOS, GGT, CBC ####[address] Platelet mean volume (Bld) [Entitic vol] 8.9 fL Normal 6.6-10.1 The [facility] Comment on above: Performed By: #### C MP, MG, PHOS, GGT, CBC ####[address] Platelets (Bld) [#/Vol] 205 10*3/uL Normal 150-450 [facility] Comment on above: Performed By: #### C MP, MG, PHOS, GGT, CBC ####[address] RBC (Bld) [#/Vol] 3.62 10*6/uL Low 3.90-5.[address] [facility] Comment on above: Performed By: #### C MP, MG, PHOS, GGT, CBC ####[address] WBC (Bld) [#/Vol] 13.7 10*3/uL High 4.1-10.[address] [facility] Comment on above: Performed By: #### C MP, MG, PHOS, GGT, CBC ####[address] Comprehensive Metabolic Pane guy 03-10-2024 Albumin [Mass/Vol] 3.4 g/dL Low 3.5-5.7 [facility] Comment on above: Performed By: #### C MP, MG, PHOS, GGT, CBC ####[address] Albumin/Globulin [Mass ratio] 1.0 {ratio} Normal [facility] Comment on above: Performed By: #### C MP, MG, PHOS, GGT, CBC ####[facility] [place] [address] [facility] ALP [Catalytic activity/Vol] 426 U/L High 34-104 [facility] Comment on above: Performed By: #### C MP, MG, PHOS, GGT, CBC ####[facility] [place] [address] [facility] ALT [Catalytic activity/Vol] 78 U/L High 7-52 [facility] Comment on above: Performed By: #### C MP, MG, PHOS, GGT, CBC ####[place] [address] [place] [id number] [facility] Anion gap [Moles/Vol] 14.5 mmol/L Normal 6.0-15.0 e [facility] Comment on above: Performed By: #### C MP, MG, PHOS, GGT, CBC ####[place] [address] [place] [phone] [facility] AST [Catalytic activity/Vol] 92 U/L High 13-39 [facility] Comment on above: Performed By: #### C MP, MG, PHOS, GGT, CBC ####[address] Bilirubin [Mass/Vol] 2.2 mg/dL High 0.3-1.0 [facility] Comment on above: Result Comment: Samp les from patients who have taken Naproxen have shown spurious elevation in Total Bilirubin levels. A metabolite of Naproxen, O-desmethylnaproxen, has been shown to interfere with the Jendrassik-Grof method for measuring Total Bilirubin. Performed By: #### C MP, MG, PHOS, GGT, CBC ####[place] [address] [place] [id number] [facility] Calcium [Mass/Vol] 8.3 mg/dL Low 8.6-10.3 [facility] Comment on above: Performed By: #### C MP, MG, PHOS, GGT, CBC ####[place] [address] [place] [phone] [facility] Chloride [Moles/Vol] 102 mmol/L Normal 98-107 [facility] Comment on above: Performed By: #### C MP, MG, PHOS, GGT, CBC ####[address] CO2 [Moles/Vol] 21.8 mmol/L Normal 21.0-31.0 [facility] Comment on above: Performed By: #### C MP, MG, PHOS, GGT, CBC ####[address] Creatinine [Mass/Vol] 1.81 mg/dL High 0.70-1.30 [facility] Comment on above: Performed By: #### C MP, MG, PHOS, GGT, CBC ####[address] Creatinine Clr Calc Pharmacy 47.38 Normal [facility] Comment on above: Performed By: #### C MP, MG, PHOS, GGT, CBC ####[address] GFR/1.73 sq M.predicted MDRD (S/P/Bld) [Vol rate/Area] 42.806 mL/min/{1.73_m2} Normal [facility] Comment on above: Performed By: #### C MP, MG, PHOS, GGT, CBC ####[address] Globulin (S) [Mass/Vol] 3.3 g/dL Normal [facility] Comment on above: Performed By: #### C MP, MG, PHOS, GGT, CBC ####[address] Glucose [Mass/Vol] 141 mg/dL High 70-100 [facility] Comment on above: Result Comment: [facility] Glucose Reference Range is dependent on time and content of last meal. Glucose of more than 200 mg/dL in a nonstressed, ambulatory subject supports the diagnosis of Diabetes Mellitus. ADA recommended reference range Performed By: #### C MP, MG, PHOS, GGT, CBC ####[address] Potassium [Moles/Vol] 3.3 mmol/L Low 3.5-5.1 [facility] Comment on above: Performed By: #### C MP, MG, PHOS, GGT, CBC ####[address] Protein [Mass/Vol] 6.7 g/dL Normal 6.4-8.9 [facility] Comment on above: Performed By: #### C MP, MG, PHOS, GGT, CBC ####[address] Sodium [Moles/Vol] 135 mmol/L Significant change down 136-145 [facility] Comment on above: Performed By: #### C MP, MG, PHOS, GGT, CBC ####[address] Urea nitrogen [Mass/Vol] 16 mg/dL Normal 7-25 [facility] Comment on above: Performed By: #### C MP, MG, PHOS, GGT, CBC ####[address] Gamma Glutamyl Transpeptidas keyla 03-10-2024 Amylase [Catalytic activity/Vol] 176 U/L High [facility] Comment on above: Result Comment: PERF ORMED BY:[address] [place], [place] [phone] MEDICAL DIRECTORCLIFFORD LOBATO M.D. Performed By: #### C MP, MG, PHOS, GGT, CBC ####[place] [id number] [facility] Gamma glutamyl transferase [ Enzymatic activity/volume] in Serum or PlasmaOrdered By: João Powell on 03-10-2024 Gamma glutamyl transferase [Catalytic activity/Vol] 176 U/L High [facility] Gamma glutamyl transferase [Catalytic activity/Vol] Gamma glutamyl transferase [Enzymatic activity/volume] in Serum or Plasma High [facility] Glucose Poct Glucometerson 1 Commemt1 Glu2: Cleaned Meter Normal The [facility] Comment on above: Result Comment: PERF ORMED BY:[address] [place], [place] [phone] MEDICAL DIRECTORCLIFFORD LOBATO M.D. Performed By: #### G LULS ####Point of Care testing, Glucose [Mass/Vol] 133 mg/dL Normal [facility] Comment on above: Result Comment: [place] Glucose Reference Range is dependent on time and content of last meal. Glucose of more than 200 mg/dL in a nonstressed, ambulatory subject supports the diagnosis of Diabetes Mellitus. Performed By: #### G LULS ####Point of Care testing, Commemt1 Glu2: Cleaned Meter Normal [facility] Comment on above: Result Comment: PERF ORMED BY:[address] [place], [place] [phone] MEDICAL DIRECTORCLIFFORD LOBATO M.D. Performed By: #### G LULS ####Point of Care testing, Glucose [Mass/Vol] 294 mg/dL Normal [facility] Comment on above: Result Comment: [place] Glucose Reference Range is dependent on time and content of last meal. Glucose of more than 200 mg/dL in a nonstressed, ambulatory subject supports the diagnosis of Diabetes Mellitus. Performed By: #### G LULS ####Point of Care testing, Glucose [Mass/Vol] 352 mg/dL Normal [facility] Comment on above: Result Comment: [place] Glucose Reference Range is dependent on time and content of last meal. Glucose of more than 200 mg/dL in a nonstressed, ambulatory subject supports the diagnosis of Diabetes Mellitus.PERFORMED BY:[address] [place], [place] [phone] MEDICAL BRISA LOBATO M.D. Performed By: #### G LULS ####Point of Care testing, Glucose [Mass/Vol] 174 mg/dL Normal [facility] Comment on above: Result Comment: [place] Glucose Reference Range is dependent on time and content of last meal. Glucose of more than 200 mg/dL in a nonstressed, ambulatory subject supports the diagnosis of Diabetes Mellitus.PERFORMED BY:[place] [address] [place], [place] [phone] MEDICAL DIRECTORCLIFFORD LOBATO M.D. Performed By: #### G LULS ####Point of Care testing, Magnesiumon 03-10-2024 Magnesium [Mass/Vol] 1.4 mg/dL Low 1.9-2.7 [facility] Comment on above: Result Comment: PERF ORMED BY:[place] [address] [place], [place] [phone] MEDICAL DIRECTORCLIFFORD LOBATO M.D. Performed By: #### C MP, MG, PHOS, GGT, CBC ####[facility] [id number] [place] [address] [facility] R-xqeryl-Z-Aspartate IgG, Se gladis 03-10-2024 G-xprxld-ISouwfafdh IgG, Serum Negative Normal Negative [facility] Comment on above: Result [...] more, or to refer your patient, call [phone] ([phone], study hotline) or see ClinicalTrials.gov (study ID, [id number]). Performed at: [facility] [address] [id number] Junior Web Designer: Chrissy Wong MD, Phone: [phone] BY:[place] [address] [place], [place] [phone] MEDICAL DIRECTORCLIFFORD LOBATO M.D. Performed By: #### N MDA IGG SERUM ####[facility] , No Panel InformationOrdered By: Job James on 03-10-2024 R-Umxnku-A-Aspartate Recept IgG Ab Negative Negative [facility] Comment on above: This test was jack larios and its performance characteristicsdetermined by [employer]. It has not been cleared orapproved by the Food and Drug Administration.The [facility]-sponsored ExTINGUISH Trial (activity and safety ofInebilizumab in anti-NMDAR encephalitis) is activelyrecruiting patients. You may consider enrolling yourpatient in the clinical trial if the result of this test ispositive. To learn more, or to refer your patient, call [phone] ([phone], study hotline) or seeClinicalTrials.gov (study ID, [id number]).Performed at: [address] [id number] Director: Chrissy Wong MD, Phone: [phone] Negative Negative [facility] Phosphoruson 03-10-2024 Phosphate [Mass/Vol] 3.1 mg/dL Normal 2.5-4.5 [facility] Comment on above: Performed By: #### C MP, MG, PHOS, GGT, CBC ####[place] [address] [place] [address] [facility] Complete Blood Count Auto Di ffon 03-09-2024 Basophils (Bld) [#/Vol] 0.1 10*3/uL Normal 0.0-0.2 [facility] Comment on above: Result Comment: PERF ORMED BY:[address] [place], [place] [phone] MEDICAL DIRECTORCLIFFORD LOBATO M.D. Performed By: #### C BC, CMP, MG, PHOS ####[place] [address] [place] [address] [facility] Basophils/100 WBC (Bld) 1.2 % Normal . [facility] Comment on above: Performed By: #### C BC, CMP, MG, PHOS ####[facility] [place] [address] [place] Eosinophils (Bld) [#/Vol] 0.2 10*3/uL Normal 0.0-0.45 [facility] Comment on above: Performed By: #### C BC, CMP, MG, PHOS ####[address] Eosinophils/100 WBC (Bld) 2.5 % Normal . [facility] Comment on above: Performed By: #### C BC, CMP, MG, PHOS ####[address] Erythrocyte distribution width (RBC) [Ratio] 21.9 % High 12.0-14.8 [facility] Comment on above: Performed By: #### C BC, CMP, MG, PHOS ####[address] Hematocrit (Bld) [Volume fraction] 27.8 % Low 38.8-50.0 [facility] Comment on above: Performed By: #### C BC, CMP, MG, PHOS ####[address] Hemoglobin (Bld) [Mass/Vol] 8.9 g/dL Low 13.0-17.0 [facility] Comment on above: Performed By: #### C BC, CMP, MG, PHOS ####[address] Lymphocytes (Bld) [#/Vol] 1.8 10*3/uL Normal 1.00-4.8 [facility] Comment on above: Performed By: #### C BC, CMP, MG, PHOS ####[address] Lymphocytes/100 WBC (Bld) 20.9 % Normal . [facility] Comment on above: Performed By: #### C BC, CMP, MG, PHOS ####[address] MCH (RBC) [Entitic mass] 22.7 pg Low 27.5-35.2 [facility] Comment on above: Performed By: #### C BC, CMP, MG, PHOS ####[address] MCV (RBC) [Entitic vol] 70.7 fL Low 83.5-101 [facility] Comment on above: Performed By: #### C BC, CMP, MG, PHOS ####[address] Mean Corpuscular HGB Conc 32.1 g/dL Low 32.5-35.6 [facility] Comment on above: Performed By: #### C BC, CMP, MG, PHOS ####[address] Monocytes (Bld) [#/Vol] 1.0 10*3/uL High 0.0-0.8 [facility] Comment on above: Performed By: #### C BC, CMP, MG, PHOS ####[address] Monocytes/100 WBC (Bld) 10.9 % Normal . [facility] Comment on above: Performed By: #### C BC, CMP, MG, PHOS ####[address] Neutrophils (Bld) [#/Vol] 5.6 10*3/uL Normal 1.8-7.7 [facility] Comment on above: Performed By: #### C BC, CMP, MG, PHOS ####[address] Neutrophils/100 WBC (Bld) 64.5 % Normal . [facility] Comment on above: Performed By: #### C BC, CMP, MG, PHOS ####[address] NRBC% 0.2 /100{WBC} Normal 0-0.5 [facility] Comment on above: Performed By: #### C BC, CMP, MG, PHOS ####[address] Platelet mean volume (Bld) [Entitic vol] 8.7 fL Normal 6.6-10.1 [facility] Comment on above: Performed By: #### C BC, CMP, MG, PHOS ####[address] Platelets (Bld) [#/Vol] 265 10*3/uL Normal 150-450 [facility] Comment on above: Performed By: #### C BC, CMP, MG, PHOS ####[address] RBC (Bld) [#/Vol] 3.93 10*6/uL Normal 3.90-5.[address] [facility] Comment on above: Performed By: #### C BC, CMP, MG, PHOS ####[address] WBC (Bld) [#/Vol] 8.8 10*3/uL Normal 4.1-10.5 [facility] Comment on above: Performed By: #### C BC, CMP, MG, PHOS ####[address] Comprehensive Metabolic Pane guy 03-09-2024 Albumin [Mass/Vol] 3.5 g/dL Normal 3.5-5.7 [facility] Comment on above: Performed By: #### C BC, CMP, MG, PHOS ####[address] Albumin/Globulin [Mass ratio] 1.0 {ratio} Normal [facility] Comment on above: Performed By: #### C BC, CMP, MG, PHOS ####[address] ALP [Catalytic activity/Vol] 110 U/L High 34-104 [facility] Comment on above: Performed By: #### C BC, CMP, MG, PHOS ####[address] ALT [Catalytic activity/Vol] 10 U/L Normal 7-52 [facility] Comment on above: Performed By: #### C BC, CMP, MG, PHOS ####[address] Anion gap [Moles/Vol] 14.9 mmol/L Normal 6.0-15.0 Th e [facility] Comment on above: Performed By: #### C BC, CMP, MG, PHOS ####[address] AST [Catalytic activity/Vol] 14 U/L Normal 13-39 [facility] Comment on above: Performed By: #### C BC, CMP, MG, PHOS ####[address] Bilirubin [Mass/Vol] 0.5 mg/dL Normal 0.3-1.0 [facility] Comment on above: Performed By: #### C BC, CMP, MG, PHOS ####[address] Calcium [Mass/Vol] 9.0 mg/dL Normal 8.6-10.3 [facility] Comment on above: Performed By: #### C BC, CMP, MG, PHOS ####[address] Chloride [Moles/Vol] 110 mmol/L High 98-107 [facility] Comment on above: Performed By: #### C BC, CMP, MG, PHOS ####[address] CO2 [Moles/Vol] 20.8 mmol/L Low 21.0-31.0 [facility] Comment on above: Performed By: #### C BC, CMP, MG, PHOS ####[address] Creatinine [Mass/Vol] 1.80 mg/dL High 0.70-1.30 [facility] Comment on above: Performed By: #### C BC, CMP, MG, PHOS ####[address] Creatinine Clr Calc Pharmacy 47.64 Normal [facility] Comment on above: Performed By: #### C BC, CMP, MG, PHOS ####[address] GFR/1.73 sq M.predicted MDRD (S/P/Bld) [Vol rate/Area] 43.092 mL/min/{1.73_m2} Normal [facility] Comment on above: Performed By: #### C BC, CMP, MG, PHOS ####[address] Globulin (S) [Mass/Vol] 3.5 g/dL Normal [facility] Comment on above: Performed By: #### C BC, CMP, MG, PHOS ####[address] Glucose [Mass/Vol] 91 mg/dL Normal 70-100 [facility] Comment on above: Result Comment: [facility] Glucose Reference Range is dependent on time and content of last meal. Glucose of more than 200 mg/dL in a nonstressed, ambulatory subject supports the diagnosis of Diabetes Mellitus. ADA recommended reference range Performed By: #### C BC, CMP, MG, PHOS ####[address] Potassium [Moles/Vol] 3.7 mmol/L Normal 3.5-5.1 [facility] Comment on above: Performed By: #### C BC, CMP, MG, PHOS ####[address] Protein [Mass/Vol] 7.0 g/dL Normal 6.4-8.9 [facility] Comment on above: Performed By: #### C BC, CMP, MG, PHOS ####[address] Sodium [Moles/Vol] 142 mmol/L Normal 136-145 [facility] Comment on above: Performed By: #### C BC, CMP, MG, PHOS ####[facility] [id number] [place] [address] [facility] Urea nitrogen [Mass/Vol] 19 mg/dL Normal 7-25 [facility] Comment on above: Performed By: #### C BC, CMP, MG, PHOS ####[facility] [id number] [place] [address] [facility] Glucose Poct Glucometerson 1 Glucose [Mass/Vol] 386 mg/dL Normal [facility] Comment on above: Result Comment: [place] [facility] Glucose Reference Range is dependent on time and content of last meal. Glucose of more than 200 mg/dL in a nonstressed, ambulatory subject supports the diagnosis of Diabetes Mellitus.PERFORMED BY:[place] [address] [place], [place] [id number] MEDICAL DIRECTORCLIFFORD LOBATO M.D. Performed By: #### G LULS ####Point of Care testing, Commemt1 Glu2: Cleaned Meter Normal The [facility] Comment on above: Result Comment: PERF ORMED BY:[address] [place], [place] [phone] MEDICAL DIRECTORCLIFFORD LOBATO M.D. Performed By: #### G LULS ####Point of Care testing, Glucose [Mass/Vol] 128 mg/dL Normal [facility] Comment on above: Result Comment: [place] [facility] Glucose Reference Range is dependent on time and content of last meal. Glucose of more than 200 mg/dL in a nonstressed, ambulatory subject supports the diagnosis of Diabetes Mellitus. Performed By: #### G LULS ####Point of Care testing, Glucose [Mass/Vol] 119 mg/dL Normal [facility] Comment on above: Result Comment: [place] Glucose Reference Range is dependent on time and content of last meal. Glucose of more than 200 mg/dL in a nonstressed, ambulatory subject supports the diagnosis of Diabetes Mellitus.PERFORMED BY:[place] [address]MaryCHALINOCAS[place], [place] [phone] MEDICAL DIRECTORCLIFFORD LOBATO M.D. Performed By: #### G LULS ####Point of Care testing, Magnesiumon 03-09-2024 Magnesium [Mass/Vol] 1.5 mg/dL Low 1.9-2.7 [facility] Comment on above: Result Comment: PERF ORMED BY:[address] [place], [place] [phone] MEDICAL DIRECTORCLIFFORD LOBATO M.D. Performed By: #### C BC, CMP, MG, PHOS ####[place] [id number] [place] [id number] [facility] Phosphoruson 03-09-2024 Phosphate [Mass/Vol] 3.1 mg/dL Normal 2.5-4.5 [facility] Comment on above: Performed By: #### C BC, CMP, MG, PHOS ####[place] [id number] [facility] US renal BIon 03-09-2024 US renal BI Normal [facility] XR elbow LT 2Von 03-09-2024 XR elbow LT 2V Normal [facility] Activated partial thrombopla stin time (aPTT) in platelet poor plasma by coagulation aOrdered By: Bonilla Rubin on 03-08-2024 aPTT Coag (PPP) [Time] 29.6 s 25.1-36.5 [facility] Comment on above: A hematocrit value g reater than 55% may lead to inaccurate results in coagulation testing. Patients having hematocrit values >55% require a special collection tube for coagulation studies. Please contact the laboratory at [phone] for redraw instructions. Alanine aminotransferase [En zymatic activity/volume] in Serum or PlasmaOrdered By: Bonilla Rubin on 03-08-2024 ALT [Catalytic activity/Vol] 13 U/L Normal 7-52 [facility] Comment on above: Performed By: #### P TT, HS TROP, PT, CMP, CK, CBC ####[place] [id number] [facility] Albumin [Mass/volume] in Ser um or [...] TT, HS TROP, PT, CMP, CK, CBC ####[facility] [id number] [place] [address] [facility] Ammonia [Moles/volume] in Pl asmaOrdered By: João Powell on 03-08-2024 Ammonia (P) [Moles/Vol] 33 umol/L Normal [facility] Comment on above: Result Comment: PERF ORMED BY:[address] [place], [place] [phone] MEDICAL DIRECTORCLIFFORD LOBATO M.D. Performed By: #### A MM ####[place] [address] [place] [address] [facility] Ammonia (P) [Moles/Vol] Ammonia [Moles/volume] in Plasma [facility] Amphetamine Screen Ql (U)Ord ered By: Bonilla Scottie on 03-08-2024 Amphetamines Ql (U) Amphetamines screen Negativ e [facility] Amphetamines Ql (U) Negative Negative [facility] Appearance of UrineOrdered B y: Bonilla Scottie on 03-08-2024 Appearance (U) Urine appearance Clear [facility] Arterial Blood Gason 024 ABG Base Excess -1.4 mmol/L Normal -3.0-3.0 [facility] Comment on above: Performed By: #### A BG ####Point of Care testing, ABG Frac Inspired O2 21 % Normal [facility] Comment on above: Performed By: #### A BG ####Point of Care testing, ABG Oxygen Content 6.4 mmol/L Low 6.6-9.7 [facility] Comment on above: Performed By: #### A BG ####Point of Care testing, ABG Oxygen Saturation 97.1 % Normal 95.0-100.0 [facility] Comment on above: Performed By: #### A BG ####Point of Care testing, ABG PCO2 33.3 mm[Hg] Low 35.0-45.0 [facility] Comment on above: Performed By: #### A BG ####Point of Care testing, ABG PH 7.44 Normal 7.35-7.45 [facility] Comment on above: Performed By: #### A BG ####Point of Care testing, ABG PO2 92.6 mm[Hg] Normal 80.0-100.0 [facility] Comment on above: Performed By: #### A BG ####Point of Care testing, Respiratory Critical Normal [facility] Comment on above: Result Comment: Crit ical Value called on: 03/08/2024 at 15:16PERFORMED BY:[place] [address] [address] [place], [place] [phone] MEDICAL DIRECTORCLIFFORD LOBATO M.D. Performed By: #### A BG ####Point of Care testing, VBG Draw Site Left Radial Normal [facility] Comment on above: Performed By: #### A BG ####Point of Care testing, Arterial Blood GasOrdered By : Bonilla Rubin on 03-08-2024 CO2 [Moles/Vol] 23.2 mmol/L Normal 23.0-27.0 [facility] Comment on above: Performed By: #### A BG ####Point of Care testing, HCO3 (Bld) [Moles/Vol] 22.2 mmol/L Low 23.0-29.0 [facility] Comment on above: Performed By: #### A BG ####Point of Care testing, Aspartate aminotransferase [ Enzymatic activity/volume] in Serum or PlasmaOrdered By: Bonilla Rubin on 03-08-2024 AST [Catalytic activity/Vol] 14 U/L Normal 13-39 [facility] Comment on above: Performed By: #### P TT, HS TROP, PT, CMP, CK, CBC ####[address] Automated basophil %Ordered By: Bonilla Rubin on 03-08-2024 Basophils/100 WBC (Bld) 1.0 % Normal . [facility] Comment on above: Performed By: #### P TT, HS TROP, PT, CMP, CK, CBC ####[address] Automated basophil countOrde red By: Bonilla Rubin on 03-08-2024 Basophils (Bld) [#/Vol] 0.1 10*3/uL Normal 0.0-0.2 [facility] Comment on above: Result Comment: PERF ORMED BY:[address] [place], [place] [phone] MEDICAL DIRECTORCLIFFORD LOBATO M.D. Performed By: #### P TT, HS TROP, PT, CMP, CK, CBC ####[address] Automated blood monocyte cou ntOrdered By: Bonilla Rubin on 03-08-2024 Monocytes (Bld) [#/Vol] 1.2 10*3/uL High 0.0-0.8 [facility] Comment on above: Performed By: #### P TT, HS TROP, PT, CMP, CK, CBC ####[address] Automated eosinophil %Ordere d By: Bonilla Rubin on 03-08-2024 Eosinophils/100 WBC (Bld) 3.3 % Normal . [facility] Comment on above: Performed By: #### P TT, HS TROP, PT, CMP, CK, CBC ####[address] Automated eosinophil countOr dered By: Bonilla Rubin on 03-08-2024 Eosinophils (Bld) [#/Vol] 0.3 10*3/uL Normal 0.0-0.45 [facility] Comment on above: Performed By: #### P TT, HS TROP, PT, CMP, CK, CBC ####[facility] [id number] Automated monocyte %Ordered By: Bonilla Rubin on 03-08-2024 Monocytes/100 WBC (Bld) 13.2 % Normal . [facility] Comment on above: Performed By: #### P TT, HS TROP, PT, CMP, CK, CBC ####[facility] [id number] Automated neutrophil %Ordere d By: Bonilla Rubin on 03-08-2024 Neutrophils/100 WBC (Bld) 69.4 % Normal . [facility] Comment on above: Performed By: #### P TT, HS TROP, PT, CMP, CK, CBC ####[facility] [id number] Bacterial blood cultureOrder ed By: Bonilla Rubin on 03-08-2024 Bacteria identified Cx Nom (Bld) Bacterial blood culture [facility] Bacteria identified Cx Nom (Bld) Bacterial blood culture [facility] Bacteria identified Cx Nom (Bld) NO GROWTH 5 DAYS [facility] Bacteria identified Cx Nom (Bld) NO GROWTH 5 DAYS [facility] Barbiturates [Presence] in U rine by Screen methodOrdered By: Bonilla Rubin on 03-08-2024 Barbiturates Screen Ql (U) Negative Negative [facility] Barbiturates Screen Ql (U) Barbiturates [Presence] in Urine by Screen method Negative [facility] Benzodiazepines Screen Ql (U )Ordered By: Bonilla Rubin on 03-08-2024 Benzodiazepines Ql (U) Negative Negative [facility] Benzodiazepines Ql (U) Benzodiazepines [Presence] in Urine by Screen method Negative [facility] Benzoylecgonine [Presence] i n Urine by Screen methodOrdered By: Bonilla Rubin on 03-08-2024 Benzoylecgonine Screen Ql (U) Negative Negative [facility] Benzoylecgonine Screen Ql (U) Benzoylecgonine [Presence] in Urine by Screen method Negative [facility] Bilirubin Test strip Ql (U)O rdered By: Bonilla Rubin on 03-08-2024 Bilirubin Ql (U) Negative Negative [facility] Bilirubin Ql (U) Bilirubin.total [Presence] in Urine by Test strip Negative [facility] Bilirubin.total [Mass/volume ] in Serum or PlasmaOrdered By: Bonilla Rubin on 03-08-2024 Bilirubin [Mass/Vol] 0.4 mg/dL Normal 0.3-1.0 [facility] Comment on above: Performed By: #### P TT, HS TROP, PT, CMP, CK, CBC ####[place] [id number] [facility] BioFire Not Detectedon 03-08 BioFire Not Detected Not detected Normal Not Detecte [facility] Comment on above: Result Comment: This is a duplicate RP2.1 COVID (PCR) result to be used for statistical tracking purpose only.PERFORMED BY:[address] [phone] MEDICAL DIRECTORCLIFFORD LOBATO M.D. Performed By: #### R QUE PANEL UPP., BIOFIRECOVNOTDE ####[place] [id number] [facility] Blood Cultureon 03-08-2024 Bacteria identified Cx Nom (Bld) NO GROWTH 5 DAYS PERFORMED BY: [facility] [address] [place] [address] PATHOLOGIST [employer] CASHIER CLIFFORD LOBATO M.D. Normal [facility] Comment on above: Performed By: #### C UBLD, LACTIC ####[place] [id number] [facility] Bacteria identified Cx Nom (Bld) NO GROWTH 5 DAYS PERFORMED BY: [facility] [address] [place] [address] PATHOLOGIST [employer] CASHIER CLIFFORD LOBATO M.D. Normal [facility] Comment on above: Performed By: #### C UBLD, LACTIC ####[place] [id number] [facility] COVID-19 Detected/Not Detect edOrdered By: Bonilla Rubin on 03-08-2024 SARS-CoV-2 (COVID-19) RNA NELLY+non-probe Ql (Nph) Not detected Not Detecte [facility] Comment on above: This is a duplicate RP2.1 COVID (PCR) result to be used for statistical tracking purpose only. CT angio headon 03-08-2024 CT angio head Normal [facility] Calcium [Mass/volume] in Ser um or PlasmaOrdered By: Bonilla Rubin on 03-08-2024 Calcium [Mass/Vol] 9.6 mg/dL Normal 8.6-10.3 [facility] Comment on above: Performed By: #### P TT, HS TROP, PT, CMP, CK, CBC ####[facility] [id number] [place] [address] [facility] Cannabinoids [Presence] in U rine by [...] [Presence] in Urine by Screen method Negative [facility] Comment [...] on 03-08-2024 Glucose [Mass/Vol] 182 mg/dL Normal [facility] Comment on above: Result Comment: [facility] Glucose Reference Range is dependent on time and content of last meal. Glucose of more than 200 mg/dL in a nonstressed, ambulatory subject supports the diagnosis of Diabetes Mellitus.PERFORMED BY:[facility] [place], [place] [phone] MEDICAL DIRECTORCLIFFORD LOBATO M.D. Performed By: #### G LULS ####Point of Care testing, Carbon dioxide, total [Moles /volume] in Serum or PlasmaOrdered By: Bonilla Rubin on 03-08-2024 CO2 [Moles/Vol] 25.0 mmol/L Normal 21.0-31.0 [facility] Comment on above: Performed By: #### P TT, HS TROP, PT, CMP, CK, CBC ####[address] Chloride [Moles/volume] in S ilia or PlasmaOrdered By: Bonilla Rubin on 03-08-2024 Chloride [Moles/Vol] 106 mmol/L Normal 98-107 [facility] Comment on above: Performed By: #### P TT, HS TROP, PT, CMP, CK, CBC ####[address] Color Auto (U)Ordered By: Yasmin Rubin on 03-08-2024 Color (U) Color of Urine by Auto Yellow [facility] Color of Urine by AutoOrdere d By: Bonilla Rubin on 03-08-2024 Color (U) Light-yellow Normal Yellow [facility] Comment on above: Order Comment: Name Collection Type:: Straight Catheter Performed By: #### U A ####[address] Complete Blood Count Auto Di ffon 03-08-2024 Mean Corpuscular HGB Conc 32.0 g/dL Low 32.5-35.6 [facility] Comment on above: Performed By: #### P TT, HS TROP, PT, CMP, CK, CBC ####[address] Monocytes/100 WBC (Bld) 18.68 % Normal 0.00-20.00 [facility] Comment on above: Performed By: #### P TT, HS TROP, PT, CMP, CK, CBC ####[address] NRBC% 0.2 /100{WBC} Normal 0-0.5 [facility] Comment on above: Performed By: #### P TT, HS TROP, PT, CMP, CK, CBC ####[address] [address] [facility] Comprehensive Metabolic Pane guy 03-08-2024 Albumin [Mass/Vol] 3.8 g/dL Normal 3.5-5.7 [facility] Comment on above: Performed By: #### P TT, HS TROP, PT, CMP, CK, CBC ####[place] [id number] [facility] Creatinine Clr Calc Pharmacy 44.90 Normal [facility] Comment on above: Result Comment: PERF ORMED BY:[address] [place], [place] [phone] MEDICAL DIRECTORCLIFFORD LOBATO M.D. Performed By: #### P TT, HS TROP, PT, CMP, CK, CBC ####[place] [id number] [facility] GFR/1.73 sq M.predicted MDRD (S/P/Bld) [Vol rate/Area] 40.131 mL/min/{1.73_m2} Normal [facility] Comment on above: Performed By: #### P TT, HS TROP, PT, CMP, CK, CBC ####[place] [id number] [facility] Creatine kinase [Enzymatic a ctivity/volume] in Serum or PlasmaOrdered By: Bonilla Rubin on 03-08-2024 CK [Catalytic activity/Vol] 181 U/L Normal [facility] Comment on above: Performed By: #### P TT, HS TROP, PT, CMP, CK, CBC ####[place] [id number] [facility] CK [Catalytic activity/Vol] Creatine kinase [Enzymatic activity/volume] in Serum or Plasma [facility] Creatinine [Mass/volume] in Serum or PlasmaOrdered By: Bonilla Rubin on 03-08-2024 Creatinine [Mass/Vol] 1.91 mg/dL High 0.70-1.30 [facility] Comment on above: Performed By: #### P TT, HS TROP, PT, CMP, CK, CBC ####[place] [id number] [place] [address] [facility] Drug Screen,Urineon 03-08-20 Amphetamine Screen,Urine Negative Normal Negative [facility] Comment on above: Performed By: #### U RDS ####[address] [address] [facility] Barbiturate Screen,Urine Negative Normal Negative [facility] Comment on above: Performed By: #### U RDS ####[address] [address] [facility] Benzodiazepines Screen,Urine Negative Normal Negative [facility] Comment on above: Performed By: #### U RDS ####[address] [address] [facility] Cannabinoid Screen,Urine Negative Normal Negative [facility] Comment on above: Result Comment: Thes e are unconfirmed results and should not be used for legal purposes. Drug Cut-Off Concentration: AMPH 1000 ng/mL JERMAINE 200 ng/mL SAVANNAH 200 ng/mL COCM 300 ng/mL OP 300 ng/mL PCP 25 ng/mL THC 20 ng/mLPERFORMED BY:[address] [place], [place] [phone] MEDICAL BRISA LOBATO M.D. Performed By: #### U RDS ####[address] [address] [facility] Cocaine Screen,Urine Negative Normal Negative [facility] Comment on above: Performed By: #### U RDS ####[address] [address] [facility] Opiate Screen,Urine Negative Normal Negative [facility] Comment on above: Performed By: #### U RDS ####[address] [address] [facility] Phencyclidine Screen,Urine Negative Normal Negative [facility] Comment on above: Performed By: #### U RDS ####[address] [address] [facility] ECG 12 lead ECGon 03-08-2024 ECG 12 lead ECG Normal [facility] Erythrocyte distribution wid th [Ratio] by Automated countOrdered By: Bonilla Rubin on 03-08-2024 Erythrocyte distribution width (RBC) [Ratio] 22.0 % High 12.0-14.8 [facility] Comment on above: Performed By: #### P TT, HS TROP, PT, CMP, CK, CBC ####[facility] [id number] [place] [address] [facility] Erythrocytes [#/volume] in B lood by Automated countOrdered By: Bonilla Rubin on 03-08-2024 RBC (Bld) [#/Vol] 4.54 10*6/uL Normal 3.90-5.60 [facility] Comment on above: Performed By: #### P TT, HS TROP, PT, CMP, CK, CBC ####[facility] [id number] [place] [address] [facility] Glucose [Mass/volume] in Ser um or PlasmaOrdered By: Bonilla Rubin on 03-08-2024 Glucose [Mass/Vol] 167 mg/dL High 70-100 [facility] Comment on above: Result Comment: [facility] Glucose Reference Range is dependent on time and content of last meal. Glucose of more than 200 mg/dL in a nonstressed, ambulatory subject supports the diagnosis of Diabetes Mellitus. ADA recommended reference range Performed By: #### P TT, HS TROP, PT, CMP, CK, CBC ####[facility] [id number] [place] [address] [facility] Glucose [Mass/volume] in Uri ne by Test stripOrdered By: Bonilla Rubin on 03-08-2024 Glucose Test strip (U) [Mass/Vol] >=1000 mg/dL High Normal [facility] Glucose Test strip (U) [Mass/Vol] Glucose [Mass/volume] in Urine by Test strip [facility] Hematocrit [Volume Fraction] of Blood by Automated countOrdered By: Bonilla Rubin on 03-08-2024 Hematocrit (Bld) [Volume fraction] 32.2 % Low 38.8-50.0 [facility] Comment on above: Performed By: #### P TT, HS TROP, PT, CMP, CK, CBC ####[facility] [id number] Hemoglobin Test strip Ql (U) Ordered By: Bonilla Rubin on 03-08-2024 Hemoglobin Ql (U) Negative Negative [facility] Hemoglobin Ql (U) Hemoglobin [Presence ] in Urine by Test strip Negative [facility] Hemoglobin [Mass/volume] in BloodOrdered By: Bonilla Rubin on 03-08-2024 Hemoglobin (Bld) [Mass/Vol] 10.3 g/dL Low 13.0-17.0 [facility] Comment on above: Performed By: #### P TT, HS TROP, PT, CMP, CK, CBC ####[facility] INR in Platelet poor plasma by [...] TT, HS TROP, PT, CMP, CK, CBC ####[place] [address] [place] [id number] [facility] INR Coag (PPP) [Relative time] INR in Platelet poor plasma by Coagulation assay [facility] Comment on [...] i n Urine by Test strip Negative [facility] Ketones [Presence] in Urine by Test stripOrdered By: Bonilla Rubin on 03-08-2024 Ketones Ql (U) Negative Normal Negative [facility] Comment on above: Order Comment: Name Collection Type:: Straight Catheter Performed By: #### U A ####[address] [address] [place] Lactate [Moles/volume] in Se rum or PlasmaOrdered By: Bonilla Rubin on 03-08-2024 Lactate [Moles/Vol] 1.1 mmol/L Normal 0.5-2.2 [facility] Comment on above: Result Comment: PERF ORMED BY:[address] [place], [place] [phone] MEDICAL DIRECTORCLIFFORD LOBATO M.D. Performed By: #### C UBLD, LACTIC ####[address] [address] [facility] Lactate [Moles/Vol] Lactate [Moles/volum e] in Serum or Plasma 0.5-2.2 [facility] Leukocyte esterase [Presence ] in Urine by Test stripOrdered By: Bonilla Rubin on 03-08-2024 Leukocyte esterase Test strip Ql (U) Negative Normal Negative [facility] Comment on above: Order Comment: Name Collection Type:: Straight Catheter Performed By: #### U A ####[address] [address] [facility] Leukocyte esterase Test strip Ql (U) Leukocyte esterase [Presence] in Urine by Test strip Negative [facility] Leukocytes [#/volume] correc jorge for nucleated erythrocytes in Blood by Automated counOrdered By: Bonilla Rubin on 03-08-2024 WBC corrected for nucl RBC Auto (Bld) [#/Vol] 8.9 10*3/uL 4.1-10.5 [facility] Leukocytes [#/volume] in Blo od by Automated countOrdered By: Bonilla Rubin on 03-08-2024 WBC (Bld) [#/Vol] 8.9 10*3/uL Normal 4.1-10.5 [facility] Comment on above: Performed By: #### P TT, HS TROP, PT, CMP, CK, CBC ####[address] Lymphocytes [#/volume] in Bl ood by Automated countOrdered By: Bonilla Rubin on 03-08-2024 Lymphocytes (Bld) [#/Vol] 1.2 10*3/uL Normal 1.00-4.8 [facility] Comment on above: Performed By: #### P TT, HS TROP, PT, CMP, CK, CBC ####[address] Lymphocytes/100 leukocytes i n Blood by Automated countOrdered By: Bonilla Rubin on 03-08-2024 Lymphocytes/100 WBC (Bld) 13.1 % Normal . [facility] Comment on above: Performed By: #### P TT, HS TROP, PT, CMP, CK, CBC ####[address] MCH [Entitic mass] by Automa jorge countOrdered By: Bonilla Rubin on 03-08-2024 MCH (RBC) [Entitic mass] 22.7 pg Low 27.5-35.2 [facility] Comment on above: Performed By: #### P TT, HS TROP, PT, CMP, CK, CBC ####[address] MCHC Auto (RBC) [Mass/Vol]Or dered By: Bonilla Rubin on 03-08-2024 MCHC (RBC) [Mass/Vol] 32.0 g/dL Low 32.5-35.6 [facility] MCV [Entitic volume] by Auto mated countOrdered By: Bonilla Rubin on 03-08-2024 MCV (RBC) [Entitic vol] 71.0 fL Low 83.5-101 [facility] Comment on above: Performed By: #### P TT, HS TROP, PT, CMP, CK, CBC ####[facility] [id number] MR head/brain wo conon 03-08 MR head/brain wo con Normal [facility] Monocyte distribution width [Entitic volume] in Blood by AutomatedOrdered By: Bonilla Rubin on 03-08-2024 Monocyte distribution width Auto (Bld) [Entitic vol] 18.68 % 0.00-20.00 [facility] Monocyte distribution width Auto (Bld) [Entitic vol] Monocyte distribution width [Entitic volume] in Blood by Automated 0.00-20.00 [facility] Neutrophils [#/volume] in Bl ood by Automated countOrdered By: Bonilla Rubin on 03-08-2024 Neutrophils (Bld) [#/Vol] 6.2 10*3/uL Normal 1.8-7.7 [facility] Comment on above: Performed By: #### P TT, HS TROP, PT, CMP, CK, CBC ####[facility] [id number] Nitrite Test strip Ql (U)Ord ered By: Bonilla Rubin on 03-08-2024 Nitrite Ql (U) Negative Negative [facility] Nitrite Ql (U) Nitrite [Presence] i n Urine by Test strip Negative [facility] No Panel InformationOrdered By: Bonilla Rubin [...] [facility] Arterial Blood pH 7.44 7.35-7.45 [facility] Blood Gas Critical Value See comment [facility] Comment on above: Critical Value shai hooker on: 03/08/2024 at 15:16 Blood Gas Sample Site Left radial [facility] FiO2 21 % [facility] [...] 03-08-2024 Opiates Screen Ql (U) Negative Negative [facility] Opiates Screen Ql (U) Opiates [Presence] in Urine by Screen method Negative [facility] Partial Thromboplastin Timeo n 03-08-2024 aPTT Coag (Bld) [Time] 29.6 s Normal 25.1-36.5 [facility] Comment on above: Result Comment: A he matocrit value greater than 55% may lead to inaccurate results in coagulation testing. Patients having hematocrit values >55% require a special collection tube for coagulation studies. Please contact the laboratory at [phone] for redraw instructions.PERFORMED BY:[place] [address] [place], [place] [phone] MEDICAL DIRECTORCLIFFORD LOBATO M.D. Performed By: #### P TT, HS TROP, PT, CMP, CK, CBC ####[place] [id number] [facility] Phencyclidine Screen Ql (U)O rdered By: Bonilla Rubin on 03-08-2024 Phencyclidine Ql (U) Negative Negative [facility] Phencyclidine Ql (U) Phencyclidine [Pres ence] in Urine by Screen method Negative [facility] Platelet mean volume [Entiti c volume] in Blood by Automated countOrdered By: Bonilla Rubin on 03-08-2024 Platelet mean volume (Bld) [Entitic vol] 8.2 fL Normal 6.6-10.1 [facility] Comment on above: Performed By: #### P TT, HS TROP, PT, CMP, CK, CBC ####[address] Platelets [#/volume] in Bloo d by Automated countOrdered By: Bonilla Rubin on 03-08-2024 Platelets (Bld) [#/Vol] 286 10*3/uL Normal 150-450 [facility] Comment on above: Performed By: #### P TT, HS TROP, PT, CMP, CK, CBC ####[address] Potassium [Moles/volume] in Serum or PlasmaOrdered By: Bonilla Rubin on 03-08-2024 Potassium [Moles/Vol] 4.1 mmol/L Normal 3.5-5.1 [facility] Comment on above: Performed By: #### P TT, HS TROP, PT, CMP, CK, CBC ####[address] Protein Test strip (U) [Mass /Vol]Ordered By: Bonilla Rubin on 03-08-2024 Protein (U) [Mass/Vol] Negative Negative [facility] Protein (U) [Mass/Vol] Protein [Mass/vol ume] in Urine by Test strip Negative [facility] Protein [Mass/volume] in Ser um or PlasmaOrdered By: Bonilla Rubin on 03-08-2024 Protein [Mass/Vol] 7.7 g/dL Normal 6.4-8.9 [facility] Comment on above: Performed By: #### P TT, HS TROP, PT, CMP, CK, CBC ####[place] [address] [place] [id number] [facility] Prothrombin time (PT)Ordered By: Bonilla Rubin on 03-08-2024 PT Coag (PPP) [Time] 13.0 s High 9.0-12.9 [facility] Comment on above: A hematocrit value g reater than 55% may lead to inaccurate results in coagulation testing. Patients having hematocrit values >55% require a special collection tube for coagulation studies. Please contact the laboratory at [phone] for redraw instructions. Result Comment: A he matocrit value greater than 55% may lead to inaccurate results in coagulation testing. Patients having hematocrit values >55% require a special collection tube for coagulation studies. Please contact the laboratory at [phone] for redraw instructions. Performed By: #### P TT, HS TROP, PT, CMP, CK, CBC ####[place] [address] [place] [address] [facility] PT Coag (PPP) [Time] Prothrombin time (PT) High 9.0- 12.9 [facility] Comment on above: A hematocrit value g reater than 55% may lead to inaccurate results in coagulation testing. Patients having hematocrit values >55% require a special collection tube for coagulation studies. Please contact the laboratory at [phone] for redraw instructions. Respiratory (Upper) Panel, P CRon 03-08-2024 Respiratory (Upper) Panel, PCR Normal [facility] Comment on above: Performed By: #### R QUE PANEL UPP., BIOFIRECOVNOTDE ####[place] [address] [place] [address] [facility] Respiratory pathogens DNA an d RNA panel - Nasopharynx by NELLY with non-probe detectionOrdered By: Bonilla Rubin on 03-08-2024 Respiratory pathogens DNA and RNA panel NELLY+non-probe (Nph) Respiratory pathogens DNA and RNA panel - Nasopharynx by NELLY with non-probe detection [facility] Respiratory pathogens DNA and RNA panel NELLY+non-probe (Nph) [facility] Serum globulin measurement b y calculation (mass/volume)Ordered By: Bonilla Rubin on 03-08-2024 Globulin (S) [Mass/Vol] 3.9 g/dL [facility] Comment on above: Performed By: #### P TT, HS TROP, PT, CMP, CK, CBC ####[address] Serum or plasma albumin/glob ulin mass ratioOrdered By: Bonilla Rubin on 03-08-2024 Albumin/Globulin [Mass ratio] 1.0 {ratio} [facility] Comment on above: Performed By: #### P TT, HS TROP, PT, CMP, CK, CBC ####[address] Serum or plasma anion gap de terminationOrdered By: Bonilla Rubin on 03-08-2024 Anion gap [Moles/Vol] 14.1 mmol/L Normal 6.0-15.0 [facility] Comment on above: Performed By: #### P TT, HS TROP, PT, CMP, CK, CBC ####[address] Sodium [Moles/volume] in Ser um or PlasmaOrdered By: Bonilla Rubin on 03-08-2024 Sodium [Moles/Vol] 141 mmol/L Normal 136-145 [facility] Comment on above: Performed By: #### P TT, HS TROP, PT, CMP, CK, CBC ####[address] Specific gravity Test strip (U) [Rel density]Ordered By: Bonilla Rubin on 03-08-2024 Specific gravity (U) [Rel density] 1.013 1.001-1.03 0 [facility] Specific gravity (U) [Rel density] Specific gravity of Urine by Test strip 1.001-1.03 0 [facility] Troponin I High Sensitivityo n 03-08-2024 Troponin I High Sensitivity 6.1 pg/mL Normal 0.0-20.0 [facility] Comment on above: Result Comment: PERF ORMED BY:[address] [place], [place] [phone] MEDICAL DIRECTORCLIFFORD LOBATO M.D. Performed By: #### P TT, HS TROP, PT, CMP, CK, CBC ####[address] [address] [facility] Troponin I.cardiac [Mass/vol ume] in Serum or Plasma by Detection limit <= 0.01 ng/Ordered By: Bonilla Rubin on 03-08-2024 Troponin I.cardiac DL <= 0.01 ng/mL [Mass/Vol] 6.1 pg/mL 0.0-20.0 [facility] Troponin I.cardiac DL <= 0.01 ng/mL [Mass/Vol] Troponin I.cardiac [Mass/volume] in Serum or Plasma by Detection limit <= 0.01 ng/ 0.0-20.0 [facility] Urea nitrogen [Mass/volume] in Serum or PlasmaOrdered By: Bonilla Rubin on 03-08-2024 Urea nitrogen [Mass/Vol] 19 mg/dL Normal 7-25 [facility] Comment on above: Performed By: #### P TT, HS TROP, PT, CMP, CK, CBC ####[address] [address] [facility] Urinalysison 03-08-2024 Bilirubin,Urine Negative Normal Negative [facility] Comment on above: Order Comment: Name Collection Type:: Straight Catheter Performed By: #### U A ####[address] [address] [facility] Glucose Ql (U) >=1000 High Normal [facility] Comment on above: Order Comment: Name Collection Type:: Straight Catheter Performed By: #### U A ####[address] [address] [facility] Nitrite,Urine Negative Normal Negative [facility] Comment on above: Order Comment: Name Collection Type:: Straight Catheter Performed By: #### U A ####[address] [address] [facility] Occult Blood,Urine Negative Normal Negative [facility] Comment on above: Order Comment: Name Collection Type:: Straight Catheter Result Comment: PERF ORMED BY:[place] [address] [place], [place] [phone] MEDICAL DIRECTORCLIFFORD LOBATO M.D. Performed By: #### U A ####[place] [address] [place] [address] [facility] Protein,Urine Negative Normal Negative [facility] Comment on above: Order Comment: Name Collection Type:: Straight Catheter Performed By: #### U A ####[address] [address] [facility] Specificy [place],Urine 1.013 Normal 1.001-1.03 0 [facility] Comment on above: Order Comment: Name Collection Type:: Straight Catheter Performed By: #### U A ####[address] [address] [facility] Urobilinogen,Urine Normal Normal Normal [facility] Comment on above: Order Comment: Name Collection Type:: Straight Catheter Performed By: #### U A ####[address] [address] [facility] Urine appearanceOrdered By: Bonilla Rubin on 03-08-2024 Appearance (U) Clear Normal Clear [facility] Comment on above: Order Comment: Name Collection Type:: Straight Catheter Performed By: #### U A ####[address] [address] [facility] Urobilinogen Test strip (U) [Mass/Vol]Ordered By: Bonilla Rubin on 03-08-2024 Urobilinogen (U) [Mass/Vol] Normal mg/dL Normal [facility] Urobilinogen (U) [Mass/Vol] Urobilinogen [Mass/volume] in Urine by Test strip Normal [facility] XR chest 1V portableon 03-08 XR chest 1V portable Normal [facility] aPTT in Platelet poor plasma by Coagulation assayOrdered By: Bonilla Rubin on 03-08-2024 aPTT Coag (PPP) [Time] Activated partial thromboplastin time (aPTT) in platelet poor plasma by coagulation a 25.1-36.5 [facility] Comment on above: A hematocrit value g reater than 55% may lead to inaccurate results in coagulation testing. Patients having hematocrit values >55% require a special collection tube for coagulation studies. Please contact the laboratory at [phone] for redraw instructions. pH Test strip (U)Ordered By: Bonilla Rubin on 03-08-2024 pH (U) pH of Urine by Test strip 5.0-9.0 [facility] pH of Urine by Test stripOrd ered By: Bonilla Rubin on 03-08-2024 pH (U) 5.0 [pH] Normal 5.0-9.0 [facility] Comment on above: Order Comment: Name Collection Type:: Straight Catheter Performed By: #### U A ####[facility] [id number] [place] [id number] [facility] Alanine aminotransferase [En zymatic activity/volume] in Serum or PlasmaOrdered By: João Powell on 03-06-2024 ALT [Catalytic activity/Vol] 11 U/L Normal [facility] Comment on above: Performed By: #### M G, PHOS, CMP, DIFF CBC ####[place] [id number] [facility] ALT [Catalytic activity/Vol] Alanine aminotransferase [Enzymatic activity/volume] in Serum or Plasma [facility] Albumin [Mass/volume] in Ser um or Plasma by Bromocresol green (BCG) dye binding methoOrdered By: João Powell on 03-06-2024 Albumin BCG dye [Mass/Vol] 3.3 g/dL Low 3.5-5.7 [facility] Albumin BCG dye [Mass/Vol] Albumin [Mass/volume] in Serum or Plasma by Bromocresol green (BCG) dye binding metho Low 3.5-5.7 [facility] Alkaline phosphatase [Enzyma tic activity/volume] in Serum or PlasmaOrdered By: João Powell on 03-06-2024 ALP [Catalytic activity/Vol] 101 U/L Normal 34-104 [facility] Comment on above: Performed By: #### M G, PHOS, CMP, DIFF CBC ####[facility] [id number] ALP [Catalytic activity/Vol] Alkaline phosphatase [Enzymatic activity/volume] in Serum or Plasma 34-104 [facility] Anisocytosis LM Ql (Bld)Orde red By: João Powell on 03-06-2024 Anisocytosis Ql (Bld) Anisocytosis [Pres ence] in Blood by Light microscopy [facility] Anisocytosis [Presence] in B lood by Light microscopyOrdered By: João Powell on 03-06-2024 Anisocytosis Ql (Bld) Marked Normal [facility] Comment on above: Performed By: #### M G, PHOS, CMP, DIFF CBC ####[facility] [id number] Aspartate aminotransferase [ Enzymatic activity/volume] in Serum or PlasmaOrdered By: João Powell on 03-06-2024 AST [Catalytic activity/Vol] 14 U/L Normal 13-39 [facility] Comment on above: Performed By: #### M G, PHOS, CMP, DIFF CBC ####[facility] [id number] [place] [id number] [facility] AST [Catalytic activity/Vol] Aspartate aminotransferase [Enzymatic activity/volume] in Serum or Plasma 13-39 [facility] Basophils Auto (Bld) [#/Vol] Ordered By: João Powell on 03-06-2024 Basophils (Bld) [#/Vol] N/A [facility] Basophils (Bld) [#/Vol] Automated basophil count [facility] Basophils/100 WBC Auto (Bld) Ordered By: João Powell on 03-06-2024 Basophils/100 WBC (Bld) N/A [facility] Basophils/100 WBC (Bld) Automated basophil % [facility] Basophils/100 WBC Manual cnt (Bld)Ordered By: João Powell on 03-06-2024 Basophils/100 WBC (Bld) Basophils/100 leukocytes in Blood by Manual count 0-2 [facility] Basophils/100 leukocytes in Blood by Manual countOrdered By: João Powell on 10-02-2024 Basophils/100 WBC (Bld) 1 % Normal 0-2 [facility] Comment on above: Performed By: #### M G, PHOS, CMP, DIFF CBC ####[facility] [place] [address] [facility] Bilirubin.total [Mass/volume ] in Serum or PlasmaOrdered By: João Powell on 03-06-2024 Bilirubin [Mass/Vol] 0.4 mg/dL Normal 0.3-1.0 [facility] Comment on above: Performed By: #### M G, PHOS, CMP, DIFF CBC ####[place] [address] [place] [address] [facility] Bilirubin [Mass/Vol] Bilirubin.total [Mass/volume] in Serum or Plasma 0.3-1.0 [facility] Calcium [Mass/volume] in Ser um or PlasmaOrdered By: João Powell on 03-06-2024 Calcium [Mass/Vol] 8.7 mg/dL Normal 8.6-10.3 [facility] Comment on above: Performed By: #### M G, PHOS, CMP, DIFF CBC ####[address] [address] [facility] Calcium [Mass/Vol] Calcium [Mass/volume ] in Serum or Plasma 8.6-10.3 [facility] Capillary blood glucose ashley urement by glucometer (mass/volume)Ordered By: João Powell on 03-06-2024 Glucose [Mass/Vol] 169 mg/dL Normal [facility] Comment on above: Random Glucose Refer ence Range is dependent on time and content of last meal. Glucose of more than 200 mg/dL in a nonstressed, ambulatory subject supports the diagnosis of Diabetes Mellitus. Result Comment: [place] Glucose Reference Range is dependent on time and content of last meal. Glucose of more than 200 mg/dL in a nonstressed, ambulatory subject supports the diagnosis of Diabetes Mellitus.PERFORMED BY:[place] [id number] [place], [place] [phone] MEDICAL DIRECTORCLIFFORD LOBATO M.D. Performed By: #### G LULS ####Point of Care testing, Carbon dioxide, total [Moles /volume] in Serum or PlasmaOrdered By: João Powell on 03-06-2024 CO2 [Moles/Vol] 24.3 mmol/L Normal 21.0-31.0 [facility] Comment on above: Performed By: #### M G, PHOS, CMP, DIFF CBC ####[address] [address] [facility] CO2 [Moles/Vol] Carbon dioxide, tota l [Moles/volume] in Serum or Plasma 21.0-31.0 [facility] Chloride [Moles/volume] in S ilia or PlasmaOrdered By: João Powell on 03-06-2024 Chloride [Moles/Vol] 107 mmol/L Normal 98-107 [facility] Comment on above: Performed By: #### M G, PHOS, CMP, DIFF CBC ####[place] [id number] [facility] Chloride [Moles/Vol] Chloride [Moles/vol ume] in Serum or Plasma 98-107 [facility] Comprehensive Metabolic Pane guy 03-06-2024 Albumin [Mass/Vol] 3.3 g/dL Low 3.5-5.7 [facility] Comment on above: Performed By: #### M G, PHOS, CMP, DIFF CBC ####[address] [address] [place] Creatinine Clr Calc Pharmacy 62.24 Normal [facility] Comment on above: Performed By: #### M G, PHOS, CMP, DIFF CBC ####[address] [address] [place] GFR/1.73 sq M.predicted MDRD (S/P/Bld) [Vol rate/Area] 57.276 mL/min/{1.73_m2} Normal [facility] Comment on above: Performed By: #### M G, PHOS, CMP, DIFF CBC ####[address] [address] [place] Creatinine [Mass/volume] in Serum or PlasmaOrdered By: João Powell on 03-06-2024 Creatinine [Mass/Vol] 1.42 mg/dL High 0.70-1.30 [facility] Comment on above: Performed By: #### M G, PHOS, CMP, DIFF CBC ####[address] Creatinine [Mass/Vol] Creatinine [Mass/v olume] in Serum or Plasma High 0.70-1.30 [facility] Dacrocytes [Presence] in Blo od by Light microscopyOrdered By: João Powell on 03-06-2024 Dacrocytes LM Ql (Bld) Teardrop cell detection [facility] Diff and CBCon 03-06-2024 Hypochromasia Slight Normal [facility] Comment on above: Performed By: #### M G, PHOS, CMP, DIFF CBC ####[address] Large Platelets Slight Normal [facility] Comment on above: Result Comment: PERF ORMED BY:[address] [place], [place] [phone] MEDICAL DIRECTORCLIFFORD LOBATO M.D. Performed By: #### M G, PHOS, CMP, DIFF CBC ####[address] Mean Corpuscular HGB Conc 32.0 g/dL Low 32.5-35.6 [facility] Comment on above: Performed By: #### M G, PHOS, CMP, DIFF CBC ####[place] [id number] [facility] Microcytosis Slight Normal [facility] Comment on above: Performed By: #### M G, PHOS, CMP, DIFF CBC ####[place] [id number] [facility] Platelet Estimate Normal Normal Normal [facility] Comment on above: Performed By: #### M G, PHOS, CMP, DIFF CBC ####[address] Polychromasia Slight Normal [facility] Comment on above: Performed By: #### M G, PHOS, CMP, DIFF CBC ####[place] [id number] [address] Tear Drop Cells Slight Normal [facility] Comment on above: Performed By: #### M G, PHOS, CMP, DIFF CBC ####[address] Eosinophils Auto (Bld) [#/Vo l]Ordered By: João Powell on 03-06-2024 Eosinophils (Bld) [#/Vol] N/A [facility] Eosinophils (Bld) [#/Vol] Automated eosinophil count [facility] Eosinophils/100 WBC Auto (Bl d)Ordered By: João Powell on 03-06-2024 Eosinophils/100 WBC (Bld) N/A [facility] Eosinophils/100 WBC (Bld) Automated eosinophil % [facility] Eosinophils/100 WBC Manual c nt (Bld)Ordered By: João Powell on 03-06-2024 Eosinophils/100 WBC (Bld) Eosinophils/100 leukocytes in Blood by Manual count 1-3 [facility] Eosinophils/100 leukocytes i n Blood by Manual countOrdered By: João Powell on 03-06-2024 Eosinophils/100 WBC (Bld) 1 % Normal 1-3 [facility] Comment on above: Performed By: #### M G, PHOS, CMP, DIFF CBC ####[address] Erythrocyte distribution wid th Auto (RBC) [Ratio]Ordered By: João Powell on 03-06-2024 Erythrocyte distribution width (RBC) [Ratio] Erythrocyte distribution width [Ratio] by Automated count High 12.0-14.8 [facility] Erythrocyte distribution wid th [Ratio] by Automated countOrdered By: João Powell on 03-06-2024 Erythrocyte distribution width (RBC) [Ratio] 21.1 % High 12.0-14.8 [facility] Comment on above: Performed By: #### M G, PHOS, CMP, DIFF CBC ####[facility] [id number] [place] [address] [facility] Erythrocyte morphology findi ng [Identifier] in BloodOrdered By: João Powell on 03-06-2024 RBC morphology finding Nom (Bld) RBC morphology [facility] Erythrocytes [#/volume] in B lood by Automated countOrdered By: João Powell on 03-06-2024 RBC (Bld) [#/Vol] 3.68 10*6/uL Low 3.90-5.60 [facility] Comment on above: Performed By: #### M G, PHOS, CMP, DIFF CBC ####[facility] [id number] [place] [address] [facility] Globulin Calc (S) [Mass/Vol] Ordered By: João Powell on 03-06-2024 Globulin (S) [Mass/Vol] Serum globulin measurement by calculation (mass/volume) [facility] Glucose Glucometer (BldC) [M ass/Vol]Ordered By: João Powell on 03-06-2024 Glucose [Mass/Vol] Capillary blood gluc ose measurement by glucometer (mass/volume) [facility] Comment on above: Random Glucose Refer ence Range is dependent on time and content of last meal. Glucose of more than 200 mg/dL in a nonstressed, ambulatory subject supports the diagnosis of Diabetes Mellitus. Glucose Poct Glucometerson 1 Glucose [Mass/Vol] 128 mg/dL Normal [facility] Comment on above: Result Comment: [facility] Glucose Reference Range is dependent on time and content of last meal. Glucose of more than 200 mg/dL in a nonstressed, ambulatory subject supports the diagnosis of Diabetes Mellitus.PERFORMED BY:[facility] [place], [place] [phone] MEDICAL DIRECTORCLIFFORD LOBATO M.D. Performed By: #### G LULS ####Point of Care testing, Glucose [Mass/volume] in Ser um or PlasmaOrdered By: João Powell on 03-06-2024 Glucose [Mass/Vol] 99 mg/dL Normal 70-100 [facility] Comment on above: ADA recommended refe rence rangeRandom Glucose Reference Range is dependent on time and content of last meal. Glucose of more than 200 mg/dL in a nonstressed, ambulatory subject supports the diagnosis of Diabetes Mellitus. Result Comment: [facility] Glucose Reference Range is dependent on time and content of last meal. Glucose of more than 200 mg/dL in a nonstressed, ambulatory subject supports the diagnosis of Diabetes Mellitus. ADA recommended reference range Performed By: #### M G, PHOS, CMP, DIFF CBC ####[facility] [id number] [place] [id number] [facility] Glucose [Mass/Vol] Glucose [Mass/volume ] in Serum or Plasma 70-100 [facility] Comment on above: ADA recommended refe rence rangeRandom Glucose Reference Range is dependent on time and content of last meal. Glucose of more than 200 mg/dL in a nonstressed, ambulatory subject supports the diagnosis of Diabetes Mellitus. Hematocrit Auto (Bld) [Volum e fraction]Ordered By: João Powell on 03-06-2024 Hematocrit (Bld) [Volume fraction] Hematocrit [Volume Fraction] of Blood by Automated count Low 38.8-50.0 [facility] Hematocrit [Volume Fraction] of Blood by Automated countOrdered By: João Powell on 03-06-2024 Hematocrit (Bld) [Volume fraction] 25.8 % Low 38.8-50.0 [facility] Comment on above: Performed By: #### M G, PHOS, CMP, DIFF CBC ####[place] [id number] [place] [id number] [facility] Hemoglobin [Mass/volume] in BloodOrdered By: João Powell on 03-06-2024 Hemoglobin (Bld) [Mass/Vol] 8.3 g/dL Low 13.0-17.0 [facility] Comment on above: Performed By: #### M G, PHOS, CMP, DIFF CBC ####[facility] [place] [phone] [facility] Hemoglobin (Bld) [Mass/Vol] Hemoglobin [Mass/volume] in Blood Low 13.0-17.0 [facility] Hypochromia LM Ql (Bld)Order ed By: João Powell on 03-06-2024 Hypochromia Ql (Bld) Slight [facility] Hypochromia Ql (Bld) Hypochromia [Presen ce] in Blood by Light microscopy [facility] Leukocytes [#/volume] correc jorge for nucleated erythrocytes in Blood by Automated counOrdered By: João Powell on 03-06-2024 WBC corrected for nucl RBC Auto (Bld) [#/Vol] 6.8 10*3/uL 4.1-10.5 [facility] WBC corrected for nucl RBC Auto (Bld) [#/Vol] Leukocytes [#/volume] corrected for nucleated erythrocytes in Blood by Automated coun 4.1-10. [facility] Leukocytes [#/volume] in Blo od by Automated countOrdered By: João Powell on 03-06-2024 WBC (Bld) [#/Vol] 6.8 10*3/uL Normal 4.1-10.5 [facility] Comment on above: Performed By: #### M G, PHOS, CMP, DIFF CBC ####[facility] [id number] [place] [phone] [facility] Lymphocytes Auto (Bld) [#/Vo l]Ordered By: João Powell on 03-06-2024 Lymphocytes (Bld) [#/Vol] N/A [facility] Lymphocytes (Bld) [#/Vol] Lymphocytes [#/volume] in Blood by Automated count [facility] Lymphocytes/100 WBC Auto (Bl d)Ordered By: João Powell on 03-06-2024 Lymphocytes/100 WBC (Bld) N/A [facility] Lymphocytes/100 WBC (Bld) Lymphocytes/100 leukocytes in Blood by Automated count [facility] Lymphocytes/100 WBC Manual c nt (Bld)Ordered By: João Powell on 03-06-2024 Lymphocytes/100 WBC (Bld) Lymphocytes/100 leukocytes in Blood by Manual count [facility] Lymphocytes/100 leukocytes i n Blood by Manual countOrdered By: João Powell on 03-06-2024 Lymphocytes/100 WBC (Bld) 18 % Normal [facility] Comment on above: Performed By: #### M G, PHOS, CMP, DIFF CBC ####[address] MCH Auto (RBC) [Entitic mass ]Ordered By: João Powell on 03-06-2024 MCH (RBC) [Entitic mass] MCH [Entitic mass] by Automated count Low 27.5-35.2 [facility] MCH [Entitic mass] by Automa jorge countOrdered By: João Powell on 03-06-2024 MCH (RBC) [Entitic mass] 22.4 pg Low 27.5-35.2 [facility] Comment on above: Performed By: #### M G, PHOS, CMP, DIFF CBC ####[address] MCHC Auto (RBC) [Mass/Vol]Or dered By: João Powell on 03-06-2024 MCHC (RBC) [Mass/Vol] 32.0 g/dL Low 32.5-35.6 [facility] MCHC (RBC) [Mass/Vol] MCHC [Mass/volume] by Automated count Low 32.5-35.6 [facility] MCV Auto (RBC) [Entitic vol] Ordered By: João Powell on 03-06-2024 MCV (RBC) [Entitic vol] MCV [Entitic volume] by Automated count Low 83.5-101 [facility] MCV [Entitic volume] by Auto mated countOrdered By: João Powell on 03-06-2024 MCV (RBC) [Entitic vol] 70.2 fL Low 83.5-101 [facility] Comment on above: Performed By: #### M G, PHOS, CMP, DIFF CBC ####[address] Magnesium [Mass/volume] in S ilia or PlasmaOrdered By: João Powell on 03-06-2024 Magnesium [Mass/Vol] 1.6 mg/dL Low 1.9-2.7 [facility] Comment on above: Result Comment: PERF ORMED BY:[address] [place], [place] [phone] MEDICAL DIRECTORCLIFFORD LOBATO M.D. Performed By: #### M G, PHOS, CMP, DIFF CBC ####[facility] [place] [address] [facility] Magnesium [Mass/Vol] Magnesium [Mass/vol ume] in Serum or Plasma Low 1.9-2.7 [facility] Manual blood segmented neutr ophils/100 leukocytesOrdered By: João Powell on 03-06-2024 Segmented neutrophils/100 WBC (Bld) 72 % High 50-70 [facility] Comment on above: Performed By: #### M Ines, PHOS, CMP, DIFF CBC ####[facility] [place] [address] [facility] Microcytes LM Ql (Bld)Ordere d By: João Powell on 03-06-2024 Microcytes Ql (Bld) Slight [facility] Microcytes Ql (Bld) Microcytes [Presence ] in Blood by Light microscopy [facility] Monocytes Auto (Bld) [#/Vol] Ordered By: João Powell on 03-06-2024 Monocytes (Bld) [#/Vol] N/A [facility] Monocytes (Bld) [#/Vol] Automated blood monocyte count [facility] Monocytes/100 WBC Auto (Bld) Ordered By: João Powell on 03-06-2024 Monocytes/100 WBC (Bld) N/A [facility] Monocytes/100 WBC (Bld) Automated monocyte % [facility] Monocytes/100 WBC Manual cnt (Bld)Ordered By: João Powell on 03-06-2024 Monocytes/100 WBC (Bld) Monocytes/100 leukocytes in Blood by Manual count [address] Monocytes/100 leukocytes in Blood by Manual countOrdered By: João Powell on 03-06-2024 Monocytes/100 WBC (Bld) 8 % Normal [address] [place] [address] Comment on above: Performed By: #### M G, PHOS, CMP, DIFF CBC ####[facility] [id number] [place] [phone] [facility] Neutrophils Auto (Bld) [#/Vo l]Ordered By: João Powell on 03-06-2024 Neutrophils (Bld) [#/Vol] N/A [facility] Neutrophils (Bld) [#/Vol] Neutrophils [#/volume] in Blood by Automated count [facility] Neutrophils/100 WBC Auto (Bl d)Ordered By: João Powell on 03-06-2024 Neutrophils/100 WBC (Bld) N/A [facility] Neutrophils/100 WBC (Bld) Automated neutrophil % [facility] No Panel [...] (Bld) N/A [facility] Nucleated RBC Auto Ql (Bld) Nucleated erythrocytes [Presence] in Blood by Automated count [facility] Phosphate [Mass/volume] in S ilia or PlasmaOrdered By: João Powell on 03-06-2024 Phosphate [Mass/Vol] 3.2 mg/dL Normal 2.5-4.5 [facility] Comment on above: Performed By: #### M G, PHOS, CMP, DIFF CBC ####[facility] [id number] [place] [address] [facility] Phosphate [Mass/Vol] Phosphate [Mass/vol ume] in Serum or Plasma 2.5-4.5 [facility] Platelet adequacy [Presence] in Blood by Light microscopyOrdered By: João Powell on 03-06-2024 Platelets LM Ql (Bld) Normal Normal [facility] Platelets LM Ql (Bld) Platelet adequacy [Presence] in Blood by Light microscopy Normal [facility] Platelet mean volume Auto (B ld) [Entitic vol]Ordered By: João Powell on 03-06-2024 Platelet mean volume (Bld) [Entitic vol] Platelet mean volume [Entitic volume] in Blood by Automated count 6.6-10.1 [facility] Platelet mean volume [Entiti c volume] in Blood by Automated countOrdered By: João Powell on 03-06-2024 Platelet mean volume (Bld) [Entitic vol] 8.1 fL Normal 6.6-10.1 [facility] Comment on above: Performed By: #### M G, PHOS, CMP, DIFF CBC ####[facility] [id number] [place] [id number] [facility] Platelet morphology finding [Identifier] in BloodOrdered By: João Powell on 03-06-2024 Platelet morphology finding Nom (Bld) N/A [facility] Platelet morphology finding Nom (Bld) Platelet morphology finding [Identifier] in Blood [facility] Platelets Auto (Bld) [#/Vol] Ordered By: João Powell on 03-06-2024 Platelets (Bld) [#/Vol] Platelets [#/volume] in Blood by Automated count 150-450 [facility] Platelets Large [Presence] i n Blood by Light microscopyOrdered By: João Powell on 03-06-2024 Platelets Large LM Ql (Bld) Slight [facility] Platelets Large LM Ql (Bld) Platelets Large [Presence] in Blood by Light microscopy [facility] Platelets [#/volume] in Bloo d by Automated countOrdered By: João Powell on 03-06-2024 Platelets (Bld) [#/Vol] 325 10*3/uL Normal 150-450 [facility] Comment on above: Performed By: #### M G, PHOS, CMP, DIFF CBC ####[facility] [id number] [place] [address] [facility] Polychromasia [Presence] in Blood by Light microscopyOrdered By: João Powell on 03-06-2024 Polychromasia LM Ql (Bld) Slight [facility] Polychromasia LM Ql (Bld) Polychromasia [Presence] in Blood by Light microscopy [facility] Potassium [Moles/volume] in Serum or PlasmaOrdered By: João Powell on 03-06-2024 Potassium [Moles/Vol] 4.2 mmol/L Normal 3.5-5.1 [facility] Comment on above: Performed By: #### M Ines, PHOS, CMP, DIFF CBC ####[facility] Potassium [Moles/Vol] Potassium [Moles/v olume] in Serum or Plasma 3.5-5.1 [facility] Protein [Mass/volume] in Ser um or PlasmaOrdered By: João Powell on 03-06-2024 Protein [Mass/Vol] 6.1 g/dL Low 6.4-8.9 [facility] Comment on above: Performed By: #### M Ines, PHOS, CMP, DIFF CBC ####[address] Protein [Mass/Vol] Protein [Mass/volume ] in Serum or Plasma Low 6.4-8.9 [facility] RBC Auto (Bld) [#/Vol]Ordere d By: João Powell on 03-06-2024 RBC (Bld) [#/Vol] Erythrocytes [#/volu me] in Blood by Automated count Low 3.90-5.60 [facility] RBC morphologyOrdered By: Derek Powell on 03-06-2024 RBC morphology finding Nom (Bld) N/A [facility] Segmented neutrophils/100 WB C Manual cnt (Bld)Ordered By: João Powell on 03-06-2024 Segmented neutrophils/100 WBC (Bld) Manual blood segmented neutrophils/100 leukocytes High 50-70 [facility] Serum globulin measurement b y calculation (mass/volume)Ordered By: João Powell on 03-06-2024 Globulin (S) [Mass/Vol] 2.8 g/dL Normal [facility] Comment on above: Performed By: #### M G, PHOS, CMP, DIFF CBC ####[address] Serum or plasma albumin/glob ulin mass ratioOrdered By: João Powell on 10-02-2024 Albumin/Globulin [Mass ratio] 1.2 {ratio} Normal [facility] Comment on above: Performed By: #### M G, PHOS, CMP, DIFF CBC ####[place] [id number] [address] Albumin/Globulin [Mass ratio] Serum or plasma albumin/globulin mass ratio [facility] Serum or plasma anion gap de terminationOrdered By: João Powell on 03-06-2024 Anion gap [Moles/Vol] 9.9 mmol/L Normal 6.0-15.0 [facility] Comment on above: Performed By: #### M G, PHOS, CMP, DIFF CBC ####[address] Anion gap [Moles/Vol] Serum or plasma an ion gap determination 6.0-15.0 [facility] Sodium [Moles/volume] in Ser um or PlasmaOrdered By: João Powell on 03-06-2024 Sodium [Moles/Vol] 137 mmol/L Normal 136-145 [facility] Comment on above: Performed By: #### M G, PHOS, CMP, DIFF CBC ####[address] Sodium [Moles/Vol] Sodium [Moles/volume ] in Serum or Plasma 136-145 [facility] Teardrop cell detectionOrder ed By: João Powell on 03-06-2024 Dacrocytes LM Ql (Bld) Slight [facility] Urea nitrogen [Mass/volume] in Serum or PlasmaOrdered By: João Powell on 03-06-2024 Urea nitrogen [Mass/Vol] 17 mg/dL Normal 25 [facility] Comment on above: Performed By: #### M G, PHOS, CMP, DIFF CBC ####[address] Urea nitrogen [Mass/Vol] Urea nitrogen [Mass/volume] in Serum or Plasma - [facility] WBC Auto (Bld) [#/Vol]Ordere d By: João Powell on 03-06-2024 WBC (Bld) [#/Vol] Leukocytes [#/volume ] in Blood by Automated count 4.1-10.5 [facility] Complete Blood Count Auto Di ffon 03-05-2024 Basophils (Bld) [#/Vol] 0.1 10*3/uL Normal 0.0-0.2 [facility] Comment on above: Result Comment: PERF ORMED BY:[address] [place], [place] [phone] MEDICAL DIRECTORCLIFFORD LOBATO M.D. Performed By: #### P HOS, MG, CBC, CMP ####[address] Basophils/100 WBC (Bld) 1.1 % Normal . [facility] Comment on above: Performed By: #### P HOS, MG, CBC, CMP ####[address] Eosinophils (Bld) [#/Vol] 0.2 10*3/uL Normal 0.0-0.45 [facility] Comment on above: Performed By: #### P HOS, MG, CBC, CMP ####[address] Eosinophils/100 WBC (Bld) 2.8 % Normal . [facility] Comment on above: Performed By: #### P HOS, MG, CBC, CMP ####[address] Erythrocyte distribution width (RBC) [Ratio] 21.4 % High 12.0-14.8 [facility] Comment on above: Performed By: #### P HOS, MG, CBC, CMP ####[address] Hematocrit (Bld) [Volume fraction] 26.8 % Low 38.8-50.0 [facility] Comment on above: Performed By: #### P HOS, MG, CBC, CMP ####[address] Hemoglobin (Bld) [Mass/Vol] 8.6 g/dL Low 13.0-17.0 [facility] Comment on above: Performed By: #### P HOS, MG, CBC, CMP ####[address] Lymphocytes (Bld) [#/Vol] 1.3 10*3/uL Normal 1.00-4.8 [facility] Comment on above: Performed By: #### P HOS, MG, CBC, CMP ####[address] Lymphocytes/100 WBC (Bld) 16.1 % Normal . [facility] Comment on above: Performed By: #### P HOS, MG, CBC, CMP ####[address] MCH (RBC) [Entitic mass] 22.4 pg Low 27.5-35.2 [facility] Comment on above: Performed By: #### P HOS, MG, CBC, CMP ####[address] MCV (RBC) [Entitic vol] 70.1 fL Low 83.5-101 [facility] Comment on above: Performed By: #### P HOS, MG, CBC, CMP ####[address] Mean Corpuscular HGB Conc 31.9 g/dL Low 32.5-35.6 [facility] Comment on above: Performed By: #### P HOS, MG, CBC, CMP ####[address] Monocytes (Bld) [#/Vol] 1.0 10*3/uL High 0.0-0.8 [facility] Comment on above: Performed By: #### P HOS, MG, CBC, CMP ####[address] Monocytes/100 WBC (Bld) 12.4 % Normal . [facility] Comment on above: Performed By: #### P HOS, MG, CBC, CMP ####[address] Neutrophils (Bld) [#/Vol] 5.6 10*3/uL Normal 1.8-7.7 [facility] Comment on above: Performed By: #### P HOS, MG, CBC, CMP ####[address] Neutrophils/100 WBC (Bld) 67.6 % Normal . [facility] Comment on above: Performed By: #### P HOS, MG, CBC, CMP ####[address] NRBC% 0.0 /100{WBC} Normal 0-0.5 [facility] Comment on above: Performed By: #### P HOS, MG, CBC, CMP ####[address] Platelet mean volume (Bld) [Entitic vol] 7.9 fL Normal 6.6-10.1 [facility] Comment on above: Performed By: #### P HOS, MG, CBC, CMP ####[address] Platelets (Bld) [#/Vol] 361 10*3/uL Normal 150-450 [facility] Comment on above: Performed By: #### P HOS, MG, CBC, CMP ####[address] RBC (Bld) [#/Vol] 3.83 10*6/uL Low 3.90-5.[address] [facility] Comment on above: Performed By: #### P HOS, MG, CBC, CMP ####[address] WBC (Bld) [#/Vol] 8.3 10*3/uL Normal 4.1-10.5 [facility] Comment on above: Performed By: #### P HOS, MG, CBC, CMP ####[address] Comprehensive Metabolic Pane guy 03-05-2024 Albumin [Mass/Vol] 3.3 g/dL Low 3.5-5.7 [facility] Comment on above: Performed By: #### P HOS, MG, CBC, CMP ####[facility] [place] [id number] [facility] Albumin/Globulin [Mass ratio] 1.2 {ratio} Normal [facility] Comment on above: Performed By: #### P HOS, MG, CBC, CMP ####[place] [address] [place] [id number] [facility] ALP [Catalytic activity/Vol] 98 U/L Normal 34-104 [facility] Comment on above: Performed By: #### P HOS, MG, CBC, CMP ####[place] [address] [place] [id number] [facility] ALT [Catalytic activity/Vol] 10 U/L Normal 7-52 [facility] Comment on above: Performed By: #### P HOS, MG, CBC, CMP ####[place] [id number] [facility] Anion gap [Moles/Vol] 9.9 mmol/L Normal 6.0-15.0 [facility] Comment on above: Performed By: #### P HOS, MG, CBC, CMP ####[place] [id number] [facility] AST [Catalytic activity/Vol] 14 U/L Normal 13-39 [facility] Comment on above: Performed By: #### P HOS, MG, CBC, CMP ####[place] [id number] [facility] Bilirubin [Mass/Vol] 0.3 mg/dL Normal 0.3-1.0 The [facility] Comment on above: Performed By: #### P HOS, MG, CBC, CMP ####[place] [id number] [facility] Calcium [Mass/Vol] 8.6 mg/dL Normal 8.6-10.3 The [facility] Comment on above: Performed By: #### P HOS, MG, CBC, CMP ####[address] Chloride [Moles/Vol] 107 mmol/L Normal 98-107 The [facility] Comment on above: Performed By: #### P HOS, MG, CBC, CMP ####[address] CO2 [Moles/Vol] 25.2 mmol/L Normal 21.0-31.0 The [facility] Comment on above: Performed By: #### P HOS, MG, CBC, CMP ####[address] Creatinine [Mass/Vol] 1.49 mg/dL High 0.70-1.30 The [facility] Comment on above: Performed By: #### P HOS, MG, CBC, CMP ####[address] Creatinine Clr Calc Pharmacy 59.31 Normal The [facility] Comment on above: Performed By: #### P HOS, MG, CBC, CMP ####[address] GFR/1.73 sq M.predicted MDRD (S/P/Bld) [Vol rate/Area] 54.062 mL/min/{1.73_m2} Normal The [facility] Comment on above: Performed By: #### P HOS, MG, CBC, CMP ####[address] Globulin (S) [Mass/Vol] 2.8 g/dL Normal The [facility] Comment on above: Performed By: #### P HOS, MG, CBC, CMP ####[address] Glucose [Mass/Vol] 105 mg/dL High 70-100 The [facility] Comment on above: Result Comment: [place] Glucose Reference Range is dependent on time and content of last meal. Glucose of more than 200 mg/dL in a nonstressed, ambulatory subject supports the diagnosis of Diabetes Mellitus. ADA recommended reference range Performed By: #### P HOS, MG, CBC, CMP ####[address] [address] [facility] Potassium [Moles/Vol] 4.1 mmol/L Normal 3.5-5.1 The [facility] Comment on above: Performed By: #### P HOS, MG, CBC, CMP ####[address] [address] [facility] Protein [Mass/Vol] 6.1 g/dL Low 6.4-8.9 The [facility] Comment on above: Performed By: #### P HOS, MG, CBC, CMP ####[place] [id number] [facility] Sodium [Moles/Vol] 138 mmol/L Normal 136-145 The [facility] Comment on above: Performed By: #### P HOS, MG, CBC, CMP ####[place] [id number] [facility] Urea nitrogen [Mass/Vol] 24 mg/dL Normal 7-25 The [facility] Comment on above: Performed By: #### P HOS, MG, CBC, CMP ####[place] [id number] [facility] Glucose Poct Glucometerson 1 Glucose [Mass/Vol] 151 mg/dL Normal The [facility] Comment on above: Result Comment: [facility] Glucose Reference Range is dependent on time and content of last meal. Glucose of more than 200 mg/dL in a nonstressed, ambulatory subject supports the diagnosis of Diabetes Mellitus.PERFORMED BY:[address] [place], [place] [phone] MEDICAL DIRECTORCLIFFORD LOBATO M.D. Performed By: #### G LULS ####Point of Care testing, Glucose [Mass/Vol] 106 mg/dL Normal The [facility] Comment on above: Result Comment: [facility] Glucose Reference Range is dependent on time and content of last meal. Glucose of more than 200 mg/dL in a nonstressed, ambulatory subject supports the diagnosis of Diabetes Mellitus.PERFORMED BY:[address] [place], [place] [phone] MEDICAL DIRECTORCLIFFORD LOBATO M.D. Performed By: #### G LULS ####Point of Care testing, Glucose [Mass/Vol] 132 mg/dL Normal The [facility] Comment on above: Result Comment: [place] om Glucose Reference Range is dependent on time and content of last meal. Glucose of more than 200 mg/dL in a nonstressed, ambulatory subject supports the diagnosis of Diabetes Mellitus.PERFORMED BY:[address] [place], [place] [phone] MEDICAL DIRECTORCLIFFORD LOBATO M.D. Performed By: #### G LULS ####Point of Care testing, Commemt1 Glu2: Cleaned Meter Normal The [facility] Comment on above: Result Comment: PERF ORMED BY:[address] [place], [place] [phone] MEDICAL DIRECTORCLIFFORD LOBATO M.D. Performed By: #### G LULS ####Point of Care testing, Glucose [Mass/Vol] 151 mg/dL Normal The [facility] Comment on above: Result Comment: [place] om Glucose Reference Range is dependent on time and content of last meal. Glucose of more than 200 mg/dL in a nonstressed, ambulatory subject supports the diagnosis of Diabetes Mellitus. Performed By: #### G LULS ####Point of Care testing, Magnesiumon 03-05-2024 Magnesium [Mass/Vol] 1.4 mg/dL Low 1.9-2.7 The [facility] Comment on above: Result Comment: PERF ORMED BY:[address] [place], [place] [phone] MEDICAL DIRECTORCLIFFORD LOBATO M.D. Performed By: #### P HOS, MG, CBC, CMP ####[address] [address] [facility] No Panel InformationOrdered By: João Powell on 03-05-2024 Bedside Glucose Comment Glu2: cleaned meter [facility] Glu2: cleaned meter [facility] Phosphoruson 03-05-2024 Phosphate [Mass/Vol] 3.1 mg/dL Normal 2.5-4.5 The [facility] Comment on above: Performed By: #### P HOS, MG, CBC, CMP ####[place] [address] [place] [id number] [facility] US carotid doppler BIon 10-0 US carotid doppler BI Normal The [facility] ABO/Rh Retypeon 03-04-2024 ABO/RH Recheck Result Positive Normal The [facility] Comment on above: Result Comment: PERF ORMED BY:[address] [place], [place] [phone] MEDICAL DIRECTORCLIFFORD LOBATO M.D. Comprehensive Metabolic Pane guy 03-04-2024 Albumin [Mass/Vol] 3.3 g/dL Low 3.5-5.7 The [facility] Comment on above: Performed By: #### M G, PHOS, SCAN CBC, CMP ####[place] [id number] [facility] Albumin/Globulin [Mass ratio] 1.1 {ratio} Normal The [facility] Comment on above: Performed By: #### M G, PHOS, SCAN CBC, CMP ####[place] [id number] [facility] ALP [Catalytic activity/Vol] 105 U/L High 34-104 The [facility] Comment on above: Performed By: #### M G, PHOS, SCAN CBC, CMP ####[place] [phone] [facility] ALT [Catalytic activity/Vol] 9 U/L Normal 7-52 The [facility] Comment on above: Performed By: #### M G, PHOS, SCAN CBC, CMP ####[place] [address] [place] [phone] [facility] Anion gap [Moles/Vol] 11.1 mmol/L Normal 6.0-15.0 Th e [facility] Comment on above: Performed By: #### M G, PHOS, SCAN CBC, CMP ####[place] [address] AST [Catalytic activity/Vol] 11 U/L Low 13-39 [facility] Comment on above: Performed By: #### M G, PHOS, SCAN CBC, CMP ####[address] Bilirubin [Mass/Vol] 0.2 mg/dL Low 0.3-1.0 [facility] Comment on above: Performed By: #### M G, PHOS, SCAN CBC, CMP ####[place] [id number] [facility] Calcium [Mass/Vol] 8.3 mg/dL Low 8.6-10.3 [facility] Comment on above: Performed By: #### M G, PHOS, SCAN CBC, CMP ####[address] Chloride [Moles/Vol] 104 mmol/L Normal 98-107 [facility] Comment on above: Performed By: #### M G, PHOS, SCAN CBC, CMP ####[address] CO2 [Moles/Vol] 27.6 mmol/L Normal 21.0-31.0 The [facility] Comment on above: Performed By: #### M G, PHOS, SCAN CBC, CMP ####[address] Creatinine [Mass/Vol] 1.83 mg/dL High 0.70-1.30 The [facility] Comment on above: Performed By: #### M G, PHOS, SCAN CBC, CMP ####[place] [id number] [facility] Creatinine Clr Calc Pharmacy 48.29 Normal The [facility] Comment on above: Performed By: #### M G, PHOS, SCAN CBC, CMP ####[place] [id number] [facility] GFR/1.73 sq M.predicted MDRD (S/P/Bld) [Vol rate/Area] 42.245 mL/min/{1.73_m2} Normal The [facility] Comment on above: Performed By: #### M Ines, PHOS, SCAN CBC, CMP ####[address] Globulin (S) [Mass/Vol] 2.9 g/dL Normal [facility] Comment on above: Performed By: #### M G, PHOS, SCAN CBC, CMP ####[address] Glucose [Mass/Vol] 150 mg/dL High 70-100 [facility] Comment on above: Result Comment: [facility] Glucose Reference Range is dependent on time and content of last meal. Glucose of more than 200 mg/dL in a nonstressed, ambulatory subject supports the diagnosis of Diabetes Mellitus. ADA recommended reference range Performed By: #### M G, PHOS, SCAN CBC, CMP ####[address] Potassium [Moles/Vol] 3.7 mmol/L Normal 3.5-5.1 [facility] Comment on above: Performed By: #### M Ines, PHOS, SCAN CBC, CMP ####[address] Protein [Mass/Vol] 6.2 g/dL Low 6.4-8.9 The [facility] Comment on above: Performed By: #### M G, PHOS, SCAN CBC, CMP ####[address] Sodium [Moles/Vol] 139 mmol/L Normal 136-145 [facility] Comment on above: Performed By: #### M G, PHOS, SCAN CBC, CMP ####[address] Urea nitrogen [Mass/Vol] 36 mg/dL High 7-25 [facility] Comment on above: Performed By: #### M G, PHOS, SCAN CBC, CMP ####[address] [place] [address] [facility] ECH echo transthoracicon ECH echo transthoracic Normal Th e [facility] Ferritinon 03-04-2024 Ferritin Normal 23.9-336.2 [facility] Comment on above: Order Comment: Comme nt add Result Comment: Spec imen hemolyzed, redraw requested Performed By: #### T SH3, LILA, FE and TIBC, [id number] ####[address] [address] [facility] Ferritin [Mass/volume] in Se rum or PlasmaOrdered By: João Powell on 03-04-2024 Ferritin [Mass/Vol] 7.7 ng/mL Low 23.9-336.2 [facility] Ferritin [Mass/Vol] Ferritin [Mass/volum e] in Serum or Plasma Low 23.9-336.2 [facility] Folate [Mass/volume] in Seru m or PlasmaOrdered By: João Powell on 03-04-2024 Folate [Mass/Vol] 7.8 ng/mL >5.9 [facility] Comment on above: Folate reference ran ge: >5.9 ng/mlThe WHO technical consultation on folate and vitamin [id number] has determined that folate concentrations lessthan 4 ng/ml are considered deficient. Folate [Mass/Vol] Folate [Mass/volume] in Serum or Plasma >5.9 [facility] Comment on above: Folate reference ran ge: >5.9 ng/mlThe WHO technical consultation on folate and vitamin [id number] has determined that folate concentrations lessthan 4 ng/ml are considered deficient. Glucose Poct Glucometerson 0 03-04-2024 Commemt1 Glu2: Cleaned Meter Normal The [facility] Comment on above: Result Comment: PERF ORMED BY:[address] [place], [place] [phone] MEDICAL DIRECTORCLIFFORD LOBATO M.D. Performed By: #### G LULS ####Point of Care testing, Glucose [Mass/Vol] 213 mg/dL Normal The [facility] Comment on above: Result Comment: [place] om Glucose Reference Range is dependent on time and content of last meal. Glucose of more than 200 mg/dL in a nonstressed, ambulatory subject supports the diagnosis of Diabetes Mellitus. Performed By: #### G LULS ####Point of Care testing, Glucose [Mass/Vol] 279 mg/dL Normal [facility] Comment on above: Result Comment: [place] om Glucose Reference Range is dependent on time and content of last meal. Glucose of more than 200 mg/dL in a nonstressed, ambulatory subject supports the diagnosis of Diabetes Mellitus.PERFORMED BY:[address] [place], [place] [phone] MEDICAL DIRECTORCLIFFORD LOBATO M.D. Performed By: #### G LULS ####Point of Care testing, Glucose [Mass/Vol] 236 mg/dL Normal [facility] Comment on above: Result Comment: [place] om Glucose Reference Range is dependent on time and content of last meal. Glucose of more than 200 mg/dL in a nonstressed, ambulatory subject supports the diagnosis of Diabetes Mellitus.PERFORMED BY:[place] [address] [address] [place], [place] [phone] MEDICAL DIRECTORCLIFFORD LOBATO M.D. Performed By: #### G LULS ####Point of Care testing, Glucose [Mass/Vol] 242 mg/dL Normal [facility] Comment on above: Result Comment: [place] om Glucose Reference Range is dependent on time and content of last meal. Glucose of more than 200 mg/dL in a nonstressed, ambulatory subject supports the diagnosis of Diabetes Mellitus.PERFORMED BY:[place] [address] [address] [place], [place] [phone] MEDICAL DIRECTORCLIFFORD LOBATO M.D. Performed By: #### G LULS ####Point of Care testing, Iron [Mass/volume] in Serum or PlasmaOrdered By: João Powell on 03-04-2024 Iron [Mass/Vol] 13 ug/dL Low 50-212 [facility] Comment on above: Order Comment: Comme nt add Performed By: #### T SH3, LILA, FE and TIBC, [id number] ####[place] [address] [place] [phone] [facility] Iron [Mass/Vol] Iron [Mass/volume] i n Serum or Plasma Low 50-212 [facility] Iron and TIBC Profileon 02-05 % Iron Saturation 3.2 % Low 20-50 The [facility] Comment on above: Order Comment: Comme nt add Performed By: #### T SH3, LILA, FE and TIBC, [id number] ####[place] [id number] [facility] Total Iron Binding Capacity 403 ug/dL Normal 255-450 [facility] Comment on above: Order Comment: Comme nt add Performed By: #### T SH3, LILA, FE and TIBC, [id number] ####[address] Iron binding capacity [Mass/ volume] in Serum or PlasmaOrdered By: João Powell on 03-04-2024 Iron binding capacity [Mass/Vol] 403 ug/dL 255-450 [facility] Iron saturation [Mass Fracti on] in Serum or PlasmaOrdered By: João Powell on 03-04-2024 Iron saturation [Mass fraction] 3.2 % Low 20-50 [facility] LeukoReduced RBCon 4 LeukoReduced RBC TRANSFUSED 03/04/24 1657 Normal [facility] MR angio MR brain w/oon 02-05 MR angio MR brain w/o Normal [facility] Magnesiumon 03-04-2024 Magnesium [Mass/Vol] 1.3 mg/dL Low 1.9-2.7 [facility] Comment on above: Result Comment: PERF ORMED BY:[place] [address] [address] [place], [place] [phone] MEDICAL DIRECTORCLIFFORD LOBATO M.D. Performed By: #### M G, PHOS, SCAN CBC, CMP ####[place] [id number] [facility] Ovalocyte detectionOrdered B y: João Powell on 03-04-2024 Ovalocytes LM Ql (Bld) Slight Fi [facility] Ovalocytes [Presence] in Blo od by Light microscopyOrdered By: João Powell on 03-04-2024 Ovalocytes LM Ql (Bld) Ovalocyte detection [facility] Phosphoruson 03-04-2024 Phosphate [Mass/Vol] 3.5 mg/dL Normal 2.5-4.5 [facility] Comment on above: Performed By: #### M G, PHOS, SCAN CBC, CMP ####[place] [address] [place] [id number] [facility] Redraw Ferritinon 03-04-2024 Redraw Ferritin 7.7 ng/mL Low 23.9-336.2 The [facility] Comment on above: Performed By: #### T SH3, REDRAW B12, REDRAW LILA, REDRAW FOLATE ####[address] Redraw Folateon 03-04-2024 Redraw Folate 7.8 ng/mL Normal >5.9 The [facility] Comment on above: Result Comment: Aure te reference range: >5.9 ng/ml The WHO technical consultation on folate and vitamin b12 deficiencies has determined that folate concentrations less than 4 ng/ml are considered deficient. Performed By: #### T SH3, REDRAW B12, REDRAW LILA, REDRAW FOLATE ####[address] Scan and CBCon 03-04-2024 Anisocytosis Ql (Bld) Moderate Normal [facility] Comment on above: Performed By: #### M G, PHOS, SCAN CBC, CMP ####[address] Basophils (Bld) [#/Vol] 0.1 10*3/uL Normal 0.0-0.2 [facility] Comment on above: Performed By: #### M G, PHOS, SCAN CBC, CMP ####[address] Basophils/100 WBC (Bld) 2.4 % Normal . [facility] Comment on above: Performed By: #### M G, PHOS, SCAN CBC, CMP ####[address] Eosinophils (Bld) [#/Vol] 0.2 10*3/uL Normal 0.0-0.45 [facility] Comment on above: Performed By: #### M G, PHOS, SCAN CBC, CMP ####[address] Eosinophils/100 WBC (Bld) 3.6 % Normal . [facility] Comment on above: Performed By: #### M G, PHOS, SCAN CBC, CMP ####[address] Erythrocyte distribution width (RBC) [Ratio] 20.8 % High 12.0-14.8 [facility] Comment on above: Performed By: #### M G, PHOS, SCAN CBC, CMP ####[address] Hematocrit (Bld) [Volume fraction] 23.7 % Low 38.8-50.0 [facility] Comment on above: Performed By: #### M G, PHOS, SCAN CBC, CMP ####[address] Hemoglobin (Bld) [Mass/Vol] 7.4 g/dL Low 13.0-17.0 [facility] Comment on above: Performed By: #### M G, PHOS, SCAN CBC, CMP ####[address] Hypochromasia Slight Normal [facility] Comment on above: Performed By: #### M G, PHOS, SCAN CBC, CMP ####[address] Lymphocytes (Bld) [#/Vol] 1.3 10*3/uL Normal 1.00-4.8 [facility] Comment on above: Performed By: #### M G, PHOS, SCAN CBC, CMP ####[address] Lymphocytes/100 WBC (Bld) 22.8 % Normal . [facility] Comment on above: Performed By: #### M G, PHOS, SCAN CBC, CMP ####[address] MCH (RBC) [Entitic mass] 21.8 pg Low 27.5-35.2 [facility] Comment on above: Performed By: #### M G, PHOS, SCAN CBC, CMP ####[address] MCV (RBC) [Entitic vol] 69.5 fL Low 83.5-101 [facility] Comment on above: Performed By: #### M G, PHOS, SCAN CBC, CMP ####[address] Mean Corpuscular HGB Conc 31.3 g/dL Low 32.5-35.6 [facility] Comment on above: Performed By: #### M G, PHOS, SCAN CBC, CMP ####[address] Monocytes (Bld) [#/Vol] 0.9 10*3/uL High 0.0-0.8 [facility] Comment on above: Performed By: #### M G, PHOS, SCAN CBC, CMP ####[address] Monocytes/100 WBC (Bld) 16.7 % Normal . [facility] Comment on above: Performed By: #### M G, PHOS, SCAN CBC, CMP ####[address] Neutrophils (Bld) [#/Vol] 3.0 10*3/uL Normal 1.8-7.7 [facility] Comment on above: Performed By: #### M G, PHOS, SCAN CBC, CMP ####[place] [address] [place] Neutrophils/100 WBC (Bld) 54.5 % Normal . [facility] Comment on above: Performed By: #### M G, PHOS, SCAN CBC, CMP ####[address] NRBC% 0.3 /100{WBC} Normal 0-0.5 [facility] Comment on above: Performed By: #### M G, PHOS, SCAN CBC, CMP ####[address] Ovalocytes Slight Normal [facility] Comment on above: Performed By: #### M G, PHOS, SCAN CBC, CMP ####[address] Platelet Estimate Normal Normal Normal [facility] Comment on above: Performed By: #### M G, PHOS, SCAN CBC, CMP ####[address] Platelet mean volume (Bld) [Entitic vol] 8.2 fL Normal 6.6-10.1 The [facility] Comment on above: Performed By: #### M G, PHOS, SCAN CBC, CMP ####[address] Platelet Morphology Normal Normal Normal The [facility] Comment on above: Result Comment: PERF ORMED BY:[address] [place], [place] [phone] MEDICAL BRISA LOBATO M.D. Performed By: #### M G, PHOS, SCAN CBC, CMP ####[address] Platelets (Bld) [#/Vol] 394 10*3/uL Normal 150-450 [facility] Comment on above: Performed By: #### M G, PHOS, SCAN CBC, CMP ####[address] Polychromasia Slight Normal [facility] Comment on above: Performed By: #### M G, PHOS, SCAN CBC, CMP ####[place] [address] RBC (Bld) [#/Vol] 3.41 10*6/uL Low 3.90-5.[address] [facility] Comment on above: Performed By: #### M G, PHOS, SCAN CBC, CMP ####[place] [address] WBC (Bld) [#/Vol] 5.5 10*3/uL Normal 4.1-10.5 [facility] Comment on above: Performed By: #### M G, PHOS, SCAN CBC, CMP ####[place] [address] Serum or plasma iron binding capacity measurement (mass/volume)Ordered By: João Powell on 03-04-2024 Iron binding capacity [Mass/Vol] Iron binding capacity [Mass/volume] in Serum or Plasma 255-450 [facility] Serum or plasma iron saturat ion measurement (mass fraction)Ordered By: João Powell on 03-04-2024 Iron saturation [Mass fraction] Iron saturation [Mass Fraction] in Serum or Plasma Low 20-50 [facility] Thyroid Stimulating Hormoneo n 03-04-2024 Thyroid Stimulating Hormone Normal 0.45-5.33 [facility] Comment on above: Order Comment: Comme nt add Result Comment: Spec imen hemolyzed, redraw requestedPERFORMED BY:[address] [place], [place] [phone] MEDICAL DIRECTORCLIFFORD LOBATO M.D. Performed By: #### T SH3, LILA, FE and TIBC, [id number] ####[place] [id number] [facility] Thyrotropin [Units/volume] i n Serum or PlasmaOrdered By: João Powell on 03-04-2024 TSH Qn 2.90 m[IU]/L Normal 0.45-5.33 [facility] Comment on above: Result Comment: PERF ORMED BY:[place] [address] [address] [place], [place] [phone] MEDICAL DIRECTORCLIFFORD LOBATO M.D. Performed By: #### T SH3, REDRAW B12, REDRAW LILA, REDRAW FOLATE ####[place] [address] [place] [address] [facility] TSH Qn Thyrotropin [Units/volume] in Serum or Plasma 0.45-5.33 [facility] Transferrin [Mass/volume] in Serum or PlasmaOrdered By: João Powell on 03-04-2024 Transferrin [Mass/Vol] 288 mg/dL Normal 203-362 [facility] Comment on above: Order Comment: Comme nt add Performed By: #### T SH3, LILA, FE and TIBC, [id number] ####[address] [address] [facility] Transferrin [Mass/Vol] Transferrin [Mass /volume] in Serum or Plasma 203-362 [facility] Type and Screenon 03-04-2024 ABO and Rh group Nom (Bld) Blood group O Rh(D) positive Normal [facility] Comment on above: Order Comment: Numbe r of units to transfuse now? 1 Result Comment: PERF ORMED BY:[place] [address] [place], [place] [phone] MEDICAL DIRECTORCLIFFORD LOBATO M.D. Vit. B12/Folate Profileon Folate Normal >5.9 [facility] Comment on above: Order Comment: Comme nt add Result Comment: Spec imen hemolyzed, redraw requested Folate reference range: >5.9 ng/ml The WHO technical consultation on folate and vitamin b12 deficiencies has determined that folate concentrations less than 4 ng/ml are considered deficient.PERFORMED BY:[place] [address] [place], [place] [phone] MEDICAL DIRECTORCLIFFORD LOBATO M.D. Performed By: #### T SH3, LILA, FE and TIBC, [id number] ####[address] [address] [facility] Vitamin B12 Normal 180-914 [facility] Comment on above: Order Comment: Comme nt add Result Comment: Spec imen hemolyzed, redraw requested Performed By: #### T SH3, LILA, FE and TIBC, [id number] ####[place] [id number] Vitamin B12 ser/plasOrdered By: João Powell on 03-04-2024 Cobalamin (Vitamin B12) [Mass/Vol] 170 pg/mL Low 180-914 [facility] Comment on above: Performed By: #### T SH3, REDRAW B12, REDRAW LILA, REDRAW FOLATE ####[place] [address] Cobalamin (Vitamin B12) [Mass/Vol] Vitamin B12 ser/plas Low 180-914 [facility] XR knee RT 2Von 03-04-2024 XR knee RT 2V Normal [facility] Anisocytosis [Presence] in B lood by Light microscopyOrdered By: Kait Dan on 03-03-2024 Anisocytosis Ql (Bld) Marked Normal [facility] Comment on above: Performed By: #### H S TROP, SCAN CBC, BNP, BMP ####[address] Appearance of UrineOrdered B y: Kait Dan on 03-03-2024 Appearance (U) Urine appearance Clear [facility] Automated basophil %Ordered By: Kait Dan on 03-03-2024 Basophils/100 WBC (Bld) 1.7 % Normal . [facility] Comment on above: Performed By: #### H S TROP, SCAN CBC, BNP, BMP ####[address] Automated basophil countOrde red By: Kiat Dan on 03-03-2024 Basophils (Bld) [#/Vol] 0.1 10*3/uL Normal 0.0-0.2 [facility] Comment on above: Performed By: #### H S TROP, SCAN CBC, BNP, BMP ####[address] [place] [address] [place] Automated blood monocyte cou ntOrdered By: Kait Dan on 03-03-2024 Monocytes (Bld) [#/Vol] 0.8 10*3/uL Normal 0.0-0.8 [facility] Comment on above: Performed By: #### H S TROP, SCAN CBC, BNP, BMP ####[address] Automated eosinophil %Ordere d By: Kait Dan on 03-03-2024 Eosinophils/100 WBC (Bld) 3.2 % Normal . [facility] Comment on above: Performed By: #### H S TROP, SCAN CBC, BNP, BMP ####[address] Automated eosinophil countOr dered By: Kait Dan on 03-03-2024 Eosinophils (Bld) [#/Vol] 0.2 10*3/uL Normal 0.0-0.45 [facility] Comment on above: Performed By: #### H S TROP, SCAN CBC, BNP, BMP ####[address] Automated monocyte %Ordered By: Kait Dan on 03-03-2024 Monocytes/100 WBC (Bld) 11.3 % Normal . [facility] Comment on above: Performed By: #### H S TROP, SCAN CBC, BNP, BMP ####[address] Automated neutrophil %Ordere d By: Kait Dan on 03-03-2024 Neutrophils/100 WBC (Bld) 65.6 % Normal . [facility] Comment on above: Performed By: #### H S TROP, SCAN CBC, BNP, BMP ####[address] BNP ser/plasOrdered By: Delfina Dan on 03-03-2024 Natriuretic peptide B (Bld) [Mass/Vol] 23.0 pg/mL Normal 5-100 [facility] Comment on above: Result Comment: PERF ORMED BY:[address], [place] [phone] MEDICAL DIRECTORCLIFFORD LOBATO M.D. Performed By: #### H S TROP, SCAN CBC, BNP, BMP ####[place] [address] [place] [address] [facility] Basic Metabolic Panelon 02-04 Creatinine Clr Calc Pharmacy 44.86 Normal [facility] Comment on above: Result Comment: PERF ORMED BY:[address] [place], [place] [phone] MEDICAL DIRECTORCLIFFORD LOBATO M.D. Performed By: #### H S TROP, SCAN CBC, BNP, BMP ####[place] [id number] [facility] GFR/1.73 sq M.predicted MDRD (S/P/Bld) [Vol rate/Area] 38.669 mL/min/{1.73_m2} Normal [facility] Comment on above: Performed By: #### H S TROP, SCAN CBC, BNP, BMP ####[address] [address] [facility] Bilirubin Test strip Ql (U)O rdered By: Kait Dan on 03-03-2024 Bilirubin Ql (U) Negative Negative [facility] Bilirubin Ql (U) Bilirubin.total [Presence] in Urine by Test strip Negative [facility] COVID CepheidOrdered By: Jeremi Dan on 03-03-2024 SARS-CoV-2 (COVID-19) Ab IA Ql Negative Negative [facility] Comment on above: This is a duplicate Cepheid Xpert Xpress CoV-2/Flu/RSV Plus RNA by RT-PCR result to be used for statistical tracking purpose only. SARS-CoV-2 (COVID-19) RNA NELLY+probe Ql (Unsp spec) Normal [facility] Comment on above: Performed By: #### C EPHEID NEG, UA, COVID19 FLU RSV ####[place] [address] [place] [phone] [facility] SARS-CoV-2 (COVID-19) RNA NELLY+probe Ql (Unsp spec) Negative Normal Negative [facility] Comment on above: Result Comment: This is a duplicate Cepheid Xpert Xpress CoV-2/Flu/RSV Plus RNA by RT-PCR result to be used for statistical tracking purpose only.PERFORMED BY:[facility] [place] [address] [place], [place] [phone] MEDICAL DIRECTORCLIFFORD LOBATO M.D. Performed By: #### C EPHEID NEG, UA, COVID19 FLU RSV ####[facility] [address] [place] [address] [facility] COVID Cepheid NegativeOrdere d By: Kait Dan on 03-03-2024 SARS-CoV-2 (COVID-19) Ab IA Ql COVID Cepheid Negative [facility] Comment on above: This is a duplicate Cepheid Xpert Xpress CoV-2/Flu/RSV Plus RNA by RT-PCR result to be used for statistical tracking purpose only. CT abdomen pelvis w conon CT abdomen pelvis w con Normal [facility] CT head/brain wo conon 03-03 CT head/brain wo con Normal [facility] Calcium [Mass/volume] in Ser um or PlasmaOrdered By: Kait Dan on 03-03-2024 Calcium [Mass/Vol] 8.6 mg/dL Normal 8.6-10.3 [facility] Comment on above: Performed By: #### H S TROP, SCAN CBC, BNP, BMP ####[place] [address] [place] [phone] [facility] Capillary blood glucose ashley urement by glucometer (mass/volume)Ordered By: Kait Dan on 03-03-2024 Glucose [Mass/Vol] 167 mg/dL Normal [facility] Comment on above: Random Glucose Refer ence Range is dependent on time and content of last meal. Glucose of more than 200 mg/dL in a nonstressed, ambulatory subject supports the diagnosis of Diabetes Mellitus. Result Comment: Goessel om Glucose Reference Range is dependent on time and content of last meal. Glucose of more than 200 mg/dL in a nonstressed, ambulatory subject supports the diagnosis of Diabetes Mellitus.PERFORMED BY:[facility] [place], [place] [phone] MEDICAL DIRECTORCLIFFORD LOBATO M.D. Performed By: #### G NELI ####Point of Care testing, Carbon dioxide, total [Moles /volume] in Serum or PlasmaOrdered By: Kait Dan on 03-03-2024 CO2 [Moles/Vol] 24.3 mmol/L Normal 21.0-31.0 [facility] Comment on above: Performed By: #### H S TROP, SCAN CBC, BNP, BMP ####[place] [address] [place] [phone] [facility] Chloride [Moles/volume] in S ilia or PlasmaOrdered By: Kait Dan on 03-03-2024 Chloride [Moles/Vol] 103 mmol/L Normal 98-107 [facility] Comment on above: Performed By: #### H S TROP, SCAN CBC, BNP, BMP ####[place] [address] [place] [phone] [facility] Color Auto (U)Ordered By: Mratha Dan on 03-03-2024 Color (U) Color of Urine by Auto Yellow [facility] Color of Urine by AutoOrdere d By: Kait Dan on 03-03-2024 Color (U) Colorless Normal Yellow [facility] Comment on above: Order Comment: Name Collection Type:: Clean-Voided Midstream Performed By: #### C EPHEID NEG, UA, COVID19 FLU RSV ####[place] [address] [place] [phone] [facility] Creatinine [Mass/volume] in Serum or PlasmaOrdered By: Kait Dan on 03-03-2024 Creatinine [Mass/Vol] 1.97 mg/dL High 0.70-1.30 [facility] Comment on above: Performed By: #### H S TROP, SCAN CBC, BNP, BMP ####[facility] [id number] [place] [phone] [facility] ECG 12 lead ECGon 03-03-2024 ECG 12 lead ECG Normal [facility] Erythrocyte distribution wid th [Ratio] by Automated countOrdered By: Kait Dan on 03-03-2024 Erythrocyte distribution width (RBC) [Ratio] 20.9 % High 12.0-14.8 [facility] Comment on above: Performed By: #### H S TROP, SCAN CBC, BNP, BMP ####[facility] [id number] [place] [address] [facility] Erythrocytes [#/volume] in B lood by Automated countOrdered By: Kait Dan on 03-03-2024 RBC (Bld) [#/Vol] 3.58 10*6/uL Low 3.90-5.60 [facility] Comment on above: Performed By: #### H S TROP, SCAN CBC, BNP, BMP ####[facility] [id number] [place] [address] [facility] Glucose Poct Glucometerson 0 03-03-2024 Commemt1 Glu2: Cleaned Meter Normal [facility] Comment on above: Result Comment: PERF ORMED BY:[facility] [place], [place] [phone] MEDICAL DIRECTORCLIFFORD LOBATO M.D. Performed By: #### G LULS ####Point of Care testing, Glucose [Mass/Vol] 204 mg/dL Normal [facility] Comment on above: Result Comment: Goessel Glucose Reference Range is dependent on time and content of last meal. Glucose of more than 200 mg/dL in a nonstressed, ambulatory subject supports the diagnosis of Diabetes Mellitus. Performed By: #### G LULS ####Point of Care testing, Glucose [Mass/volume] in Ser um or PlasmaOrdered By: Kait Dan on 03-03-2024 Glucose [Mass/Vol] 142 mg/dL High 70-100 [facility] Comment on above: ADA recommended refe rence rangeRandom Glucose Reference Range is dependent on time and content of last meal. Glucose of more than 200 mg/dL in a nonstressed, ambulatory subject supports the diagnosis of Diabetes Mellitus. Result Comment: Goessel Glucose Reference Range is dependent on time and content of last meal. Glucose of more than 200 mg/dL in a nonstressed, ambulatory subject supports the diagnosis of Diabetes Mellitus. ADA recommended reference range Performed By: #### H S TROP, SCAN CBC, BNP, BMP ####[facility] [id number] [place] [phone] [facility] Glucose [Mass/volume] in Uri ne by Test stripOrdered By: Kait Dan on 03-03-2024 Glucose Test strip (U) [Mass/Vol] 500 mg/dL High Normal [facility] Glucose Test strip (U) [Mass/Vol] Glucose [Mass/volume] in Urine by Test strip High Normal [facility] Hematocrit [Volume Fraction] of Blood by Automated countOrdered By: Kait Dan on 03-03-2024 Hematocrit (Bld) [Volume fraction] 24.7 % Low 38.8-50.0 [facility] Comment on above: Performed By: #### H S TROP, SCAN CBC, BNP, BMP ####[place] [address] [place] [phone] [facility] Hemoglobin Test strip Ql (U) Ordered By: Kait Dan on 03-03-2024 Hemoglobin Ql (U) Negative Negative [facility] Hemoglobin Ql (U) Hemoglobin [Presence ] in Urine by Test strip Negative [facility] Hemoglobin [Mass/volume] in BloodOrdered By: Kait Dan on 03-03-2024 Hemoglobin (Bld) [Mass/Vol] 7.8 g/dL Low 13.0-17.0 [facility] Comment on above: Performed By: #### H S TROP, SCAN CBC, BNP, BMP ####[place] [id number] [facility] Hypochromia LM Ql (Bld)Order ed By: Kait Dan on 03-03-2024 Hypochromia Ql (Bld) Moderate [facility] Ketones Test strip Ql (U)Ord ered By: Kait Dan on 03-03-2024 Ketones Ql (U) Ketones [Presence] i n Urine by Test strip Negative [facility] Ketones [Presence] in Urine by Test stripOrdered By: Kait Dan on 03-03-2024 Ketones Ql (U) Negative Normal Negative [facility] Comment on above: Order Comment: Name Collection Type:: Clean-Voided Midstream Performed By: #### C EPHEID NEG, UA, COVID19 FLU RSV ####[address] Leukocyte esterase [Presence ] in Urine by Test stripOrdered By: Kait Dan on 03-03-2024 Leukocyte esterase Test strip Ql (U) Negative Normal Negative [facility] Comment on above: Order Comment: Name Collection Type:: Clean-Voided Midstream Performed By: #### C EPHEID NEG, UA, COVID19 FLU RSV ####[place] [id number] [facility] Leukocyte esterase Test strip Ql (U) Leukocyte esterase [Presence] in Urine by Test strip Negative [facility] Leukocytes [#/volume] correc jorge for nucleated erythrocytes in Blood by Automated counOrdered By: Kait Dan on 03-03-2024 WBC corrected for nucl RBC Auto (Bld) [#/Vol] 7.2 10*3/uL 4.1-10.5 [facility] Leukocytes [#/volume] in Blo od by Automated countOrdered By: Kait Dan on 03-03-2024 WBC (Bld) [#/Vol] 7.2 10*3/uL Normal 4.1-10.5 [facility] Comment on above: Performed By: #### H S TROP, SCAN CBC, BNP, BMP ####[address] Lymphocytes [#/volume] in Bl ood by Automated countOrdered By: Kait Dan on 03-03-2024 Lymphocytes (Bld) [#/Vol] 1.3 10*3/uL Normal 1.00-4.8 [facility] Comment on above: Performed By: #### H S TROP, SCAN CBC, BNP, BMP ####[place] [address] [place] Lymphocytes/100 leukocytes i n Blood by Automated countOrdered By: Kait Dan on 03-03-2024 Lymphocytes/100 WBC (Bld) 18.2 % Normal . [facility] Comment on above: Performed By: #### H S TROP, SCAN CBC, BNP, BMP ####[facility] [id number] MCH [Entitic mass] by Automa jorge countOrdered By: Kait Dan on 03-03-2024 MCH (RBC) [Entitic mass] 21.8 pg Low 27.5-35.2 [facility] Comment on above: Performed By: #### H S TROP, SCAN CBC, BNP, BMP ####[address] MCHC Auto (RBC) [Mass/Vol]Or dered By: Kait Dan on 03-03-2024 MCHC (RBC) [Mass/Vol] 31.6 g/dL Low 32.5-35.6 [facility] MCV [Entitic volume] by Auto mated countOrdered By: Kait Dan on 03-03-2024 MCV (RBC) [Entitic vol] 69.0 fL Low 83.5-101 [facility] Comment on above: Performed By: #### H S TROP, SCAN CBC, BNP, BMP ####[address] Microcytes LM Ql (Bld)Ordere d By: Kait Dan on 03-03-2024 Microcytes Ql (Bld) Marked [facility] Monocyte distribution width [Entitic volume] in Blood by AutomatedOrdered By: Kait Dan on 03-03-2024 Monocyte distribution width Auto (Bld) [Entitic vol] 17.33 % 0.00-20.00 [facility] Monocyte distribution width Auto (Bld) [Entitic vol] Monocyte distribution width [Entitic volume] in Blood by Automated 0.00-20.00 [facility] Natriuretic peptide B [Mass/ Vol]Ordered By: Kait Dan on 03-03-2024 Natriuretic peptide B (Bld) [Mass/Vol] BNP ser/plas 5-100 [facility] Neutrophils [#/volume] in Bl ood by Automated countOrdered By: Kait Dan on 03-03-2024 Neutrophils (Bld) [#/Vol] 4.7 10*3/uL Normal 1.8-7.7 [facility] Comment on above: Performed By: #### H S TROP, SCAN CBC, BNP, BMP ####[facility] [id number] [place] [id number] [facility] Nitrite Test strip Ql (U)Ord ered By: Kait Dan on 03-03-2024 Nitrite Ql (U) Negative Negative [facility] Nitrite Ql (U) Nitrite [Presence] i n Urine by Test strip Negative [facility] No [...] 03-03-2024 Platelets LM Ql (Bld) Increased Normal [facility] Platelet mean volume [Entiti c volume] in Blood by Automated countOrdered By: Kait Dan on 03-03-2024 Platelet mean volume (Bld) [Entitic vol] 7.8 fL Normal 6.6-10.1 [facility] Comment on above: Performed By: #### H S TROP, SCAN CBC, BNP, BMP ####[place] [address] [place] [phone] [facility] Platelet morphology finding [Identifier] in BloodOrdered By: Kait Dan on 03-03-2024 Platelet morphology finding Nom (Bld) Normal Normal [facility] Platelets [#/volume] in Bloo d by Automated countOrdered By: Kait Dan on 03-03-2024 Platelets (Bld) [#/Vol] 452 10*3/uL High 150-450 [facility] Comment on above: Performed By: #### H S TROP, SCAN CBC, BNP, BMP ####[place] [address] [place] [address] [facility] Polychromasia [Presence] in Blood by Light microscopyOrdered By: Kait Dan on 03-03-2024 Polychromasia LM Ql (Bld) Slight [facility] Potassium [Moles/volume] in Serum or PlasmaOrdered By: Kait Dan on 03-03-2024 Potassium [Moles/Vol] 3.9 mmol/L Normal 3.5-5.1 [facility] Comment on above: Performed By: #### H S TROP, SCAN CBC, BNP, BMP ####[place] [address] Protein Test strip (U) [Mass /Vol]Ordered By: Kait Dan on 03-03-2024 Protein (U) [Mass/Vol] Negative Negative [facility] Protein (U) [Mass/Vol] Protein [Mass/vol ume] in Urine by Test strip Negative [facility] RBC morphologyOrdered By: Martha Dan on 03-03-2024 RBC morphology finding Nom (Bld) N/A [facility] Respiratory specimen influen za A virus, influenza B virus, respiratory syncytical virOrdered By: Kait Dan on 03-03-2024 SARS-CoV-2 (COVID-19) RNA NELLY+probe Ql (Unsp spec) Respiratory specimen influenza A virus, influenza B virus, respiratory syncytical vir [facility] Scan and CBCon 03-03-2024 Hypochromasia Moderate Normal [facility] Comment on above: Performed By: #### H S TROP, SCAN CBC, BNP, BMP ####[place] [id number] [facility] Mean Corpuscular HGB Conc 31.6 g/dL Low 32.5-35.6 [facility] Comment on above: Performed By: #### H S TROP, SCAN CBC, BNP, BMP ####[place] [address] [place] [phone] [facility] Microcytosis Marked Normal [facility] Comment on above: Performed By: #### H S TROP, SCAN CBC, BNP, BMP ####[place] [address] [place] [address] [facility] Monocytes/100 WBC (Bld) 17.33 % Normal 0.00-20.00 [facility] Comment on above: Performed By: #### H S TROP, SCAN CBC, BNP, BMP ####[address] [address] [facility] NRBC% 0.2 /100{WBC} Normal 0-0.5 [facility] Comment on above: Performed By: #### H S TROP, SCAN CBC, BNP, BMP ####[address] [address] [facility] Platelet Estimate Increased Normal Normal [facility] Comment on above: Performed By: #### H S TROP, SCAN CBC, BNP, BMP ####[place] [address] [place] [address] [facility] Platelet Morphology Normal Normal Normal [facility] Comment on above: Result Comment: PERF ORMED BY:[address] [place], [place] [phone] MEDICAL DIRECTORCLIFFORD LOBATO M.D. Performed By: #### H S TROP, SCAN CBC, BNP, BMP ####[address] [address] [facility] Polychromasia Slight Normal [facility] Comment on above: Performed By: #### H S TROP, SCAN CBC, BNP, BMP ####[place] [id number] [facility] Serum or plasma anion gap de terminationOrdered By: Kait Dan on 03-03-2024 Anion gap [Moles/Vol] 14.6 mmol/L Normal 6.0-15.0 [facility] Comment on above: Performed By: #### H S TROP, SCAN CBC, BNP, BMP ####[address] [address] [facility] Sodium [Moles/volume] in Ser um or PlasmaOrdered By: Kait Dan on 03-03-2024 Sodium [Moles/Vol] 138 mmol/L Normal 136-145 [facility] Comment on above: Performed By: #### H S TROP, SCAN CBC, BNP, BMP ####[place] [id number] [facility] Specific gravity Test strip (U) [Rel density]Ordered By: Kait Dan on 03-03-2024 Specific gravity (U) [Rel density] 1.009 1.001-1.03 0 [facility] Specific gravity (U) [Rel density] Specific gravity of Urine by Test strip 1.001-1.03 0 [facility] Troponin I High Sensitivityo n 03-03-2024 Troponin I High Sensitivity 4.5 pg/mL Normal 0.0-20.0 [facility] Comment on above: Result Comment: PERF ORMED BY:[address] [place], [place] [phone] MEDICAL DIRECTORCLIFFORD LOBATO M.D. Performed By: #### H S TROP ####[place] [address] [place] [address] [facility] Troponin I High Sensitivity 9.2 pg/mL Normal 0.0-20.0 [facility] Comment on above: Result Comment: PERF ORMED BY:[address] [place], [place] [phone] MEDICAL DIRECTORCLIFFORD LOBATO M.D. Performed By: #### H S TROP, SCAN CBC, BNP, BMP ####[address] [address] [facility] Troponin I.cardiac [Mass/vol ume] in Serum or Plasma by Detection limit <= 0.01 ng/Ordered By: Kait Dan on 03-03-2024 Troponin I.cardiac DL <= 0.01 ng/mL [Mass/Vol] 4.5 pg/mL 0.0-20.0 [facility] Troponin I.cardiac DL <= 0.01 ng/mL [Mass/Vol] Troponin I.cardiac [Mass/volume] in Serum or Plasma by Detection limit <= 0.01 ng/ 0.0-20.0 [facility] Urea nitrogen [Mass/volume] in Serum or PlasmaOrdered By: Kait Dan on 03-03-2024 Urea nitrogen [Mass/Vol] 46 mg/dL High 7-25 [facility] Comment on above: Performed By: #### H S TROP, SCAN CBC, BNP, BMP ####[address] [address] [facility] Urinalysison 03-03-2024 Bilirubin,Urine Negative Normal Negative [facility] Comment on above: Order Comment: Name Collection Type:: Clean-Voided Midstream Performed By: #### C EPHEID NEG, UA, COVID19 FLU RSV ####[place] [id number] [facility] Glucose Ql (U) 500 mg/dL High Normal [facility] Comment on above: Order Comment: Name Collection Type:: Clean-Voided Midstream Performed By: #### C EPHEID NEG, UA, COVID19 FLU RSV ####[address] [address] [facility] Nitrite,Urine Negative Normal Negative [facility] Comment on above: Order Comment: Name Collection Type:: Clean-Voided Midstream Performed By: #### C EPHEID NEG, UA, COVID19 FLU RSV ####[place] [id number] [facility] Occult Blood,Urine Negative Normal Negative [facility] Comment on above: Order Comment: Name Collection Type:: Clean-Voided Midstream Result Comment: PERF ORMED BY:[address] [place], [place] [phone] MEDICAL BRISA LOBATO M.D. Performed By: #### C EPHEID NEG, UA, COVID19 FLU RSV ####[address] [address] [facility] Protein,Urine Negative Normal Negative [facility] Comment on above: Order Comment: Name Collection Type:: Clean-Voided Midstream Performed By: #### C EPHEID NEG, UA, COVID19 FLU RSV ####[place] [id number] [facility] Specificy [place],Urine 1.009 Normal 1.001-1.03 0 [facility] Comment on above: Order Comment: Name Collection Type:: Clean-Voided Midstream Performed By: #### C EPHEID NEG, UA, COVID19 FLU RSV ####[place] [address] Urobilinogen,Urine Normal Normal Normal [facility] Comment on above: Order Comment: Name Collection Type:: Clean-Voided Midstream Performed By: #### C EPHEID NEG, UA, COVID19 FLU RSV ####[place] [id number] [address] Urine appearanceOrdered By: Kait Dan on 03-03-2024 Appearance (U) Clear Normal Clear [facility] Comment on above: Order Comment: Name Collection Type:: Clean-Voided Midstream Performed By: #### C EPHEID NEG, UA, COVID19 FLU RSV ####[place] [id number] [address] Urobilinogen Test strip (U) [Mass/Vol]Ordered By: Kait Dan on 03-03-2024 Urobilinogen (U) [Mass/Vol] Normal mg/dL Normal [facility] Urobilinogen (U) [Mass/Vol] Urobilinogen [Mass/volume] in Urine by Test strip Normal [facility] XR chest 2V*on 03-03-2024 XR chest 2V* Normal [facility] pH Test strip (U)Ordered By: Kait Dan on 03-03-2024 pH (U) pH of Urine by Test strip 5.0-9.0 [facility] pH of Urine by Test stripOrd ered By: Kait Dan on 03-03-2024 pH (U) 5.0 [pH] Normal 5.0-9.0 [facility] Comment on above: Order Comment: Name Collection Type:: Clean-Voided Midstream Performed By: #### C EPHEID NEG, UA, COVID19 FLU RSV ####[place] [id number] [address] Coding Queryon 02-22-2024 Coding Query Coding [...] MYRA PICKARD SR; Caller Number: H Normal [facility] General Message Officeon General Message Office General Message O ffice --- --- --- --- --- --- --- --- --- From: [facility] To: MYRA PICKARD SR Sent: 02/22/24 02:30:41 AM EDT Subject: Discharge Summary Ready to View A summary regarding your recent visit is available in the Documents section of your health record. Normal [facility] Surgical Pathology Reporton 02-22-2024 Surgical Pathology Report [address] [address]- Surgical Pathology Report Collected Date/Time: 02/12/2024 14:13 EDT Pathologist: Blair Blood MD Received Date/Time: 02/13/2024 07:26 EDT Simon HERRERA, Mike Montes MD, Mike Cain Surgical Pathology Report - 02/22/2024 14:10 EDT - Auth (Verified) Final Diagnosis RIGHT LOWER EXTREMITY, [id number] AMPUTATION: - Gangrenous ulcer and artery atherosclerosis. - Seborrheic keratosis. - No evidence of osteomyelitis. - Resection margin uninvolved by acute inflammation. (Electronic Signature) Yan. Caitie MD 02/22/2024 14:10 Clinical Information Pre-Op Diagnosis: Atherosclerosis of [place]ahu[place] arteries of extremities with gangrene, right leg. [...] pigmented lesion measuring 0.2 x 0.2 cm. Dials Supervisor sections are submitted in a total of ten cassettes: 1-5: Skin and soft tissue ulcerated areas 6-7: Artery 8: Bone near ulceration after decalcification 9-10: Bone from surgical margin after decalcification (DC) Gross of specimen was discussed with Dr. Dunne in Frozen Section Room at 1400. (DC) DC:[facility] Microscopic Description Microscopic examination performed unless gross only specified. Normal [facility] Comment on above: Performed By: #### 4 [id number] #### [facility] [address] [place] [address] [facility] Anion gap [Moles/Vol] 8 mmol/L Normal 6-16 [facility] Comment on above: Performed By: #### 2 [id number] #### [facility] [address] [place] [address] Calcium [Mass/Vol] 8.6 mg/dL Low 8.9-11.1 [facility] Comment on above: Performed By: #### 2 [id number] #### [facility] [address] [place] [address] Chloride [Moles/Vol] 100 mmol/L Low 101-111 [facility] Comment on above: Performed By: #### 2 [id number] #### [facility] [address] [place] [address] CO2 [Moles/Vol] 30 mmol/L Normal 21-31 [facility] Comment on above: Performed By: #### 2 [id number] #### [facility] [address] [place] [address] Creatinine [Mass/Vol] 1.8 mg/dL High 0.5-1.3 [facility] Comment on above: Performed By: #### 2 [id number] #### [facility] [address] [place] [address] Glucose [Mass/Vol] 169 mg/dL Normal 55-199 [facility] Comment on above: Performed By: #### 2 [id number] #### [facility] [address] [place] [address] Potassium [Moles/Vol] 3.7 mmol/L Normal 3.5-5.3 [facility] Comment on above: Performed By: #### 2 389247 #### [facility] [address] [place] [address] Sodium [Moles/Vol] 134 mmol/L Low 135-145 [facility] Comment on above: Performed By: #### 2 [id number] #### [facility] [address] [place] [address] Urea nitrogen [Mass/Vol] 26 mg/dL High 5-21 [facility] Comment on above: Performed By: #### 2 [id number] #### [facility] [address] [place] [address] Urea nitrogen/Creatinine [Mass ratio] 14 No Units Normal 10-20 [facility] Comment on above: Performed By: #### 2 [id number] #### [facility] [address] [place] [address] CBC w/ Auto Diffon 4 Basophils/100 WBC (Bld) 0.7 % Normal 0.0-2.0 [facility] Comment on above: Performed By: #### 2 [id number] #### [facility] [address] [place] [address] Basophils/Leukocytes Auto (Bld) [Pure # fraction] 0.1 E9/L Normal 0.0-0.2 [facility] Comment on above: Performed By: #### 2 [id number] #### [facility] [address] [place] [address] Eosinophils (Bld) [#/Vol] 0.4 E9/L Normal 0.0-0.5 [facility] Comment on above: Performed By: #### 2 160271 #### [facility] [address] [place] [address] Eosinophils/100 WBC (Bld) 3.6 % Normal 0.0-8.0 [facility] Comment on above: Performed By: #### 2 [id number] #### [facility] [address] [place] [address] Erythrocyte distribution width (RBC) [Ratio] 21.4 % High 10.9-14.2 [facility] Comment on above: Performed By: #### 2 320233 #### [facility] [address] [place] [address] Hematocrit (Bld) [Volume fraction] 25.6 % Low 37.7-49.0 [facility] Comment on above: Performed By: #### 2 744288 #### [facility] [address] [place] [address] Hemoglobin (Bld) [Mass/Vol] 8.1 g/dL Low 13.5-17.5 [facility] Comment on above: Performed By: #### 2 956962 #### [facility] [address] [place] [address] Hypochromia Auto Ql (Bld) PRESENT Invalid Interpretation Code [facility] Comment on above: Performed By: #### 2 [id number] #### [facility] [address] [place] [address] Lymphocytes (Bld) [#/Vol] 1.5 E9/L Normal 1.0-4.0 [facility] Comment on above: Performed By: #### 2 077463 #### [facility] [address] [place] [address] Lymphocytes/100 WBC (Bld) 12.4 % Low 14.0-50.0 [facility] Comment on above: Performed By: #### 2 419119 #### [facility] [address] [place] [address] MCH (RBC) [Entitic mass] 22.3 pg Low 27.0-34.0 [facility] Comment on above: Performed By: #### 2 [id number] #### [facility] [address] [place] [address] MCHC (RBC) [Mass/Vol] 31.5 g/dL Normal 31.4-36.0 [facility] Comment on above: Performed By: #### 2 439091 #### [facility] [address] [place] [address] MCV (RBC) [Entitic vol] 70.7 fL Low 80.0-100.0 [facility] Comment on above: Performed By: #### 2 994267 #### [facility] [address] [place] [address] Microcytes Ql (Bld) PRESENT Invalid Interpretation Code [facility] Comment on above: Performed By: #### 2 [id number] #### [facility] [address] [place] [address] Monocytes (Bld) [#/Vol] 1.1 E9/L High 0.2-1.0 [facility] Comment on above: Performed By: #### 2 072143 #### [facility] [address] [place] [address] Neutrophils (Bld) [#/Vol] 9.3 E9/L High 2.0-7.5 [facility] Comment on above: Performed By: #### 2 328269 #### [facility] [address] [place] [address] Neutrophils/100 WBC (Bld) 74.6 % Normal 36.0-75.0 [facility] Comment on above: Performed By: #### 2 323138 #### [facility] [address] [place] [address] Platelet mean volume (Bld) [Entitic vol] 8.6 fL Normal 6.4-10.8 [facility] Comment on above: Performed By: #### 2 772737 #### [facility] [address] [place] [address] Platelets (Bld) [#/Vol] 481.0 E9/L Normal 150.0-500. 0 [facility] Comment on above: Performed By: #### 2 012861 #### [facility] [address] [place] [address] Platelets Large LM Ql (Bld) PRESENT Invalid Interpretation Code [facility] Comment on above: Performed By: #### 2 026224 #### [facility] [address] [place] [address] RBC (Bld) [#/Vol] 3.6 E12/L Low 4.3-5.9 [facility] Comment on above: Performed By: #### 2 789742 #### [facility] [address] [place] [address] RBC size Nom (Bld) NORMAL Invalid Interpretation Code [facility] Comment on above: Performed By: #### 2 057887 #### [facility] [address] [place] [address] WBC corrected for nucl RBC Auto (Bld) [#/Vol] 12.5 E9/L High 4.0-11.0 [facility] Comment on above: Performed By: #### 2 525601 #### [facility] [address] [place] [address] CHEMISTRYOrdered By: Lab ROP User on 02-21-2024 Glucose [Mass/Vol] 227 mg/dL High 55 - 99 mg/dL [facility] P[facility] Subsection Comment on above: Result Comment: Noti rivas RN/MD POC Device SN [id number] 1 Invalid Interpretation Code [facility] POC Subsection POC User ID [id number] 1 Invalid Interpretation Code [facility] POC Subsection POC Username CLARITA RAMSEY Invalid Interpretation Code [facility] P[facility] Subsection Glucose [Mass/Vol] 177 mg/dL High 55 - 99 mg/dL [facility] Subsection Comment on above: Result Comment: Noti rivas RN/MD POC Device SN [id number] 1 Invalid Interpretation Code [facility] POC Subsection POC User ID [id number] 1 Invalid Interpretation Code [facility] P[facility] Subsection POC Username BRAULIO ABRAHANTERESOKATHERIN Invalid Interpretation Code [facility] POC Subsection Glucose [Mass/Vol] 158 mg/dL High 55 - 99 mg/dL [facility]OC Subsection POC Device SN [id number] 1 Invalid Interpretation Code [facility] POC Subsection POC User ID [id number] 1 Invalid Interpretation Code [facility] POC Subsection POC Username FADI LIND Invalid Interpretation Code [facility] POC Subsection CHEMISTRYOrdered By: SYSTEM SYSTEM on [...] 02-03 Glucose [Mass/Vol] 227 mg/dL High 55-99 [facility] Comment on above: Result Comment: Deon hathaway RN/ Performed By: #### 2 [id number] #### [facility] [address] [place] [address] Glucose [Mass/Vol] 177 mg/dL High 55-99 [facility] Comment on above: Result Comment: Deon hathaway RN/ Performed By: #### 2 [id number] #### [facility] [address] [place] [address] Glucose [Mass/Vol] 158 mg/dL High 55-99 [facility] Comment on above: Performed By: #### 2 [id number] #### [facility] [address] [place] [address] Discharge Note-Nursingon Discharge Note-Nursing Discharge Note-Nu rsing [...] TERESA LYNCH DO, FAM When: Where: [address] [place] [address]- [facility] Within 2 weeks Comments: Call for followup appointment Where: [address] [place] [address]- Medications What How Much When Instructions Next [...] 0.5 Tablets (more content not included)... Normal [facility] HEMATOLOGYOrdered By: SYSTEM SYSTEM on [...] 02-21-2024 Inpatient Clinical Summary Inpatient Clinical Summary [place] [address] Clinical Summary Person Information: Name: MYRA PICKARD SR Age: 58 Years : 1965 Sex: Male PCP: TERESA LYNCH DO Marital Status: Race: White Ethnicity: Non- or Language: Slovak Visit Id: Visit Reason: I70.261 Speciality: Acuity: Enc Type: Inpatient Med Service: Medical Arrival: 02/12/2024 11:13:26 Discharge: Dispo Type: Address: [address] [place] [address] 4 [facility] [id number] Provider Notes: Diagnosis: 1:Hx of right BKA; [...] up: With: Address: When: TERESA LYNCH DO, [address] [address] With: Address: When: Mike Montes MD [address] [place] [address] Within 2 weeks Comments: Call for followup appointment Patient Education Information: Living With an Amputation Normal [facility] Inpatient Patient Summaryon 02-21-2024 Inpatient Patient Summary Inpatient Patient Summary [address] [address] Patient Discharge Instructions PERSON INFORMATION [...] up: With: Address: When: TERESA LYNCH DO, [address] [address] With: Address: When: Mike Montes MD [address] [place] [address] Within 2 weeks Comments: Call for followup [...] Tablets By M (more content not included)... [facility] Interdisciplinary Note - Jorge e Manageron 02-21-2024 Interdisciplinary Note - Upholstery Tech Interdisciplinary Note - Upholstery Tech Precert for Lyle has been obtained. Patient informed and his was also contacted. Both remain in agreement with the discharge plan. Patient's will arrive to [facility] by 1700 this evening and will transport patient to [place] once he has finished his dinner. Hospitalist, RN, and CRM aware. [facility] Comment on above: Result Comment: Elec tronically Signed By: Evens SÁNCHEZ, Fely Martin\.br\Date and Time Signed: 02/21/24 18:08 EDT Interdisciplinary Note - Soc ial Workeron 02-21-2024 Interdisciplinary Note - Pulling Unit Operator Interdisciplinary Note - Pulling Unit Operator Precert for Lyle has been obtained. Patient informed and his was also contacted. Both remain in agreement with the discharge plan. Patient's will arrive to [facility] by 1700 this evening and will transport patient to [place] once he has finished his dinner. Hospitalist, RN, and CRM aware. [facility] Interdisciplinary Note - Pulling Unit Operator Interdisciplinary Note - Pulling Unit Operator Precert for Lyle has been obtained. Patient informed and his was also contacted. Both remain in agreement with the discharge plan. Patient's will arrive to [facility] by 1700 this evening and will transport patient to [place] once he has finished his dinner. Hospitalist, RN, and CRM aware. [facility] eGFRon 02-21-2024 eGFR 43 mL/min/1.73 m2 Low >=59 [facility] Comment on above: Order Comment: Order added by Discern Expert. Performed By: #### 1 [id number] #### [facility] [address] [place] [place] [address] BMPon 02-20-2024 Anion gap [Moles/Vol] 15 mmol/L Normal 6-16 [facility] Comment on above: Performed By: #### 2 [id number] #### [facility] [address] [facility] [address] Calcium [Mass/Vol] 9.4 mg/dL Normal 8.9-11.1 [facility] Comment on above: Performed By: #### 2 [id number] #### [facility] [address] [place] [address] Chloride [Moles/Vol] 97 mmol/L Low 101-111 [facility] Comment on above: Performed By: #### 2 924188 #### [facility] [address] [place] [address] CO2 [Moles/Vol] 28 mmol/L Normal 21-31 [facility] Comment on above: Performed By: #### 2 701392 #### [facility] [address] [place] [address] Creatinine [Mass/Vol] 1.8 mg/dL High 0.5-1.3 [facility] Comment on above: Performed By: #### 2 450645 #### [facility] [address] [place] [address] Glucose [Mass/Vol] 259 mg/dL High 55-199 [facility] Comment on above: Performed By: #### 2 744606 #### [facility] [address] [facility] [place] [address] Potassium [Moles/Vol] 3.9 mmol/L Normal 3.5-5.3 [facility] Comment on above: Performed By: #### 2 442430 #### [facility] [address] [facility] [place] [address] Sodium [Moles/Vol] 136 mmol/L Normal 135-145 [facility] Comment on above: Performed By: #### 2 469060 #### [facility] [address] [place] [address] Urea nitrogen [Mass/Vol] 27 mg/dL High 5-21 [facility] Comment on above: Performed By: #### 2 096751 #### [facility] [address] [place] [address] Urea nitrogen/Creatinine [Mass ratio] 15 No Units Normal 10-20 [facility] Comment on above: Performed By: #### 2 177358 #### [facility] [address] [place] [address] CBC w/ Auto Diffon 4 Basophils/100 WBC (Bld) 0.7 % Normal 0.0-2.0 [facility] Comment on above: Performed By: #### 2 [id number] #### [facility] [address] [place] [address] Basophils/Leukocytes Auto (Bld) [Pure # fraction] 0.1 E9/L Normal 0.0-0.2 [facility] Comment on above: Performed By: #### 2 302111 #### [facility] [address] [place] [address] Eosinophils (Bld) [#/Vol] 0.2 E9/L Normal 0.0-0.5 [facility] Comment on above: Performed By: #### 2 745642 #### [facility] [address] [place] [address] Eosinophils/100 WBC (Bld) 1.6 % Normal 0.0-8.0 [facility] Comment on above: Performed By: #### 2 446702 #### [facility] [address] [place] [address] Erythrocyte distribution width (RBC) [Ratio] 21.6 % High 10.9-14.2 [facility] Comment on above: Performed By: #### 2 421700 #### [facility] [address] [place] [address] Hematocrit (Bld) [Volume fraction] 27.5 % Low 37.7-49.0 [facility] Comment on above: Performed By: #### 2 [id number] #### [facility] [address] [place] [address] Hemoglobin (Bld) [Mass/Vol] 8.9 g/dL Low 13.5-17.5 [facility] Comment on above: Performed By: #### 2 074549 #### [facility] [address] [place] [address] Hypochromia Auto Ql (Bld) PRESENT Invalid Interpretation Code [facility] Comment on above: Performed By: #### 2 [id number] #### [facility] [address] [place] [address] Lymphocytes (Bld) [#/Vol] 1.3 E9/L Normal 1.0-4.0 [facility] Comment on above: Performed By: #### 2 760079 #### [facility] [address] [place] [address] Lymphocytes/100 WBC (Bld) 8.3 % Low 14.0-50.0 [facility] Comment on above: Performed By: #### 2 542158 #### [facility] [address] [place] [address] MCH (RBC) [Entitic mass] 22.9 pg Low 27.0-34.0 [facility] Comment on above: Performed By: #### 2 [id number] #### [facility] [address] [place] [address] MCHC (RBC) [Mass/Vol] 32.2 g/dL Normal 31.4-36.0 [facility] Comment on above: Performed By: #### 2 767296 #### [facility] [address] [place] [address] MCV (RBC) [Entitic vol] 70.9 fL Low 80.0-100.0 [facility] Comment on above: Performed By: #### 2 248552 #### [facility] [address] [place] [address] Microcytes Ql (Bld) PRESENT Invalid Interpretation Code [facility] Comment on above: Performed By: #### 2 505290 #### [facility] [address] [place] [address] Monocytes (Bld) [#/Vol] 1.2 E9/L High 0.2-1.0 [facility] Comment on above: Performed By: #### 2 [id number] #### [facility] [address] [place] [address] Neutrophils (Bld) [#/Vol] 12.7 E9/L High 2.0-7.5 [facility] Comment on above: Performed By: #### 2 745127 #### [facility] [address] [place] [address] Neutrophils/100 WBC (Bld) 81.5 % High 36.0-75.0 [facility] Comment on above: Performed By: #### 2 350725 #### [facility] [address] [place] [address] Platelet 521.0 E9/L High 150.0-500. 0 [facility] Comment on above: Performed By: #### 2 [id number] #### [facility] [address] [place] [address] Platelet mean volume (Bld) [Entitic vol] 8.6 fL Normal 6.4-10.8 [facility] Comment on above: Performed By: #### 2 710758 #### [facility] [address] [place] [address] RBC (Bld) [#/Vol] 3.9 E12/L Low 4.3-5.9 [facility] Comment on above: Performed By: #### 2 667615 #### [facility] [address] [place] [address] RBC size Nom (Bld) SEE MORPHOLOGY Invalid Interpretation Code [facility] Comment on above: Performed By: #### 2 [id number] #### [facility] [address] [place] [address] WBC corrected for nucl RBC Auto (Bld) [#/Vol] 15.6 E9/L High 4.0-11.0 [facility] Comment on above: Performed By: #### 2 428202 #### [facility] [address] [place] [address] CHEMISTRYOrdered By: SYSTEM SYSTEM on 02-20-2024 Anion [...] 02-03 Glucose [Mass/Vol] 192 mg/dL High 55-99 [facility] Comment on above: Result Comment: Deon ETIENNE Performed By: #### 2 [id number] #### [facility] [address] [place] [address] Glucose [Mass/Vol] 180 mg/dL High 55-99 [facility] Comment on above: Result Comment: Deon ETIENNE Performed By: #### 2 [id number] #### [facility] [address] [place] [address] Glucose [Mass/Vol] 104 mg/dL High 55-99 [facility] Comment on above: Result Comment: Deon hathaway RN/ Performed By: #### 2 [id number] #### [facility] [address] [place] [address] Glucose [Mass/Vol] 165 mg/dL High 55-99 [facility] Comment on above: Result Comment: Deon hathaway RN/ Performed By: #### 2 [id number] #### [facility] [address] [place] [address] Glucose [Mass/Vol] 224 mg/dL High 55-99 [facility] Comment on above: Result Comment: Deon hathaway RN/ Performed By: #### 2 [id number] #### [facility] [address] [place] [address] Coding Queryon 02-20-2024 Coding Query Coding Query [...] desired or expected. Thank you!eliz [phone] Normal [facility] HEMATOLOGYOrdered By: SYSTEM SYSTEM on [...] Jorge e Manageron 02-20-2024 Interdisciplinary Note - Upholstery Tech Interdisciplinary Note - Upholstery Tech This SW rounded with patient this morning. He is aware that precert is still pending for Lyle and SW will update him as soon as determination is received. SW will also update his . Call placed to patient's this afternoon and a message was left letting her know that the precert remains pending at this time. Normal [facility] Comment on above: Result Comment: Elec tronically Signed By: Fely Narvaez.br\Date and Time Signed: 02/20/24 15:25 EDT Interdisciplinary Note - Upholstery Tech Interdisciplinary Note - Upholstery Tech This SW rounded with patient this morning. He is aware that precert is still pending for Lyle and SW will update him as soon as determination is received. SW will also update his . Normal [facility] Comment on above: Result Comment: Elec tronically Signed By: Fely Narvaez.br\Date and Time Signed: 02/20/24 13:55 EDT eGFRon 02-20-2024 eGFR 43 mL/min/1.73 m2 Low >=59 [facility] Comment on above: Order Comment: Order added by Discern Expert. Performed By: #### 1 [id number] #### [facility] [address] [place] [address] BMPon 02-19-2024 Anion gap [Moles/Vol] 12 mmol/L Normal 6-16 [facility] Comment on above: Performed By: #### 2 [id number] #### [facility] [address] [place] [address] Calcium [Mass/Vol] 8.9 mg/dL Normal 8.9-11.1 [facility] Comment on above: Performed By: #### 2 [id number] #### [facility] [address] [place] [address] Chloride [Moles/Vol] 100 mmol/L Low 101-111 [facility] Comment on above: Performed By: #### 2 [id number] #### [facility] [address] [place] [address] CO2 [Moles/Vol] 28 mmol/L Normal 21-31 [facility] Comment on above: Performed By: #### 2 [id number] #### [facility] [address] [place] [address] Creatinine [Mass/Vol] 1.7 mg/dL High 0.5-1.3 [facility] Comment on above: Performed By: #### 2 [id number] #### [facility] [address] [place] [address] Glucose [Mass/Vol] 235 mg/dL High 55-199 [facility] Comment on above: Performed By: #### 2 [id number] #### [facility] [address] [place] [address] Potassium [Moles/Vol] 4.1 mmol/L Normal 3.5-5.3 [facility] Comment on above: Performed By: #### 2 [id number] #### [facility] [address] [place] [address] Sodium [Moles/Vol] 136 mmol/L Normal 135-145 [facility] Comment on above: Performed By: #### 2 [id number] #### [facility] [address] [place] [address] Urea nitrogen [Mass/Vol] 25 mg/dL High 5-21 [facility] Comment on above: Performed By: #### 2 [id number] #### [facility] [address] [place] [address] Urea nitrogen/Creatinine [Mass ratio] 15 No Units Normal 10-20 [facility] Comment on above: Performed By: #### 2 [id number] #### [facility] [address] [place] [address] CBC w/ Auto Diffon 4 Basophils/100 WBC (Bld) 1.6 % Normal 0.0-2.0 [facility] Comment on above: Performed By: #### 2 [id number] #### [facility] [address] [place] [address] Basophils/Leukocytes Auto (Bld) [Pure # fraction] 0.2 E9/L Normal 0.0-0.2 [facility] Comment on above: Performed By: #### 2 [id number] #### [facility] [address] [place] [address] Eosinophils (Bld) [#/Vol] 0.5 E9/L Normal 0.0-0.5 [facility] Comment on above: Performed By: #### 2 [id number] #### [facility] [address] [place] [address] Eosinophils/100 WBC (Bld) 5.1 % Normal 0.0-8.0 [facility] Comment on above: Performed By: #### 2 187649 #### [facility] [address] [place] [address] Erythrocyte distribution width (RBC) [Ratio] 21.6 % High 10.9-14.2 [facility] Comment on above: Performed By: #### 2 193288 #### [facility] [address] [place] [address] Hematocrit (Bld) [Volume fraction] 24.4 % Low 37.7-49.0 [facility] Comment on above: Performed By: #### 2 [id number] #### [facility] [address] [place] [address] Hemoglobin (Bld) [Mass/Vol] 7.9 g/dL Low 13.5-17.5 [facility] Comment on above: Performed By: #### 2 [id number] #### [facility] [address] [place] [address] Hypochromia Auto Ql (Bld) PRESENT Invalid Interpretation Code [facility] Comment on above: Performed By: #### 2 [id number] #### [facility] [address] [place] [address] Lymphocytes (Bld) [#/Vol] 1.9 E9/L Normal 1.0-4.0 [facility] Comment on above: Performed By: #### 2 116151 #### [facility] [address] [place] [address] Lymphocytes/100 WBC (Bld) 18.4 % Normal 14.0-50.0 [facility] Comment on above: Performed By: #### 2 [id number] #### [facility] [address] [place] [address] MCH (RBC) [Entitic mass] 22.8 pg Low 27.0-34.0 [facility] Comment on above: Performed By: #### 2 058137 #### [facility] [address] [place] [address] MCHC (RBC) [Mass/Vol] 32.3 g/dL Normal 31.4-36.0 [facility] Comment on above: Performed By: #### 2 [id number] #### [facility] [address] [place] [address] MCV (RBC) [Entitic vol] 70.4 fL Low 80.0-100.0 [facility] Comment on above: Performed By: #### 2 [id number] #### [facility] [address] [place] [address] Monocytes (Bld) [#/Vol] 1.0 E9/L Normal 0.2-1.0 [facility] Comment on above: Performed By: #### 2 [id number] #### [facility] [address] [place] [address] Neutrophils (Bld) [#/Vol] 6.7 E9/L Normal 2.0-7.5 [facility] Comment on above: Performed By: #### 2 782061 #### [facility] [address] [place] [address] Neutrophils/100 WBC (Bld) 65.1 % Normal 36.0-75.0 [facility] Comment on above: Performed By: #### 2 100771 #### [facility] [address] [place] [address] Platelet 444.0 E9/L Normal 150.0-500. 0 [facility] Comment on above: Performed By: #### 2 910146 #### [facility] [address] [place] [address] Platelet mean volume (Bld) [Entitic vol] 8.1 fL Normal 6.4-10.8 [facility] Comment on above: Performed By: #### 2 [id number] #### [facility] [address] [place] [address] RBC (Bld) [#/Vol] 3.5 E12/L Low 4.3-5.9 [facility] Comment on above: Performed By: #### 2 265178 #### [facility] [address] [place] [address] RBC size Nom (Bld) SEE MORPHOLOGY Invalid Interpretation Code [facility] Comment on above: Performed By: #### 2 [id number] #### [facility] [address] [place] [address] WBC corrected for nucl RBC Auto (Bld) [#/Vol] 10.3 E9/L Normal 4.0-11.0 [facility] Comment on above: Performed By: #### 2 972920 #### [facility] [address] [place] [address] CHEMISTRYOrdered By: SYSTEM SYSTEM on 02-19-2024 Anion [...] 02-03 Glucose [Mass/Vol] 250 mg/dL High 55-99 [facility] Comment on above: Result Comment: Deon ETIENNE Performed By: #### 2 [id number] #### [facility] [address] [place] [address] Glucose [Mass/Vol] 272 mg/dL High 55-99 [facility] Comment on above: Result Comment: Deon ETIENNE Performed By: #### 2 [id number] #### [facility] [address] [place] [address] Glucose [Mass/Vol] 277 mg/dL High 55-99 [facility] Comment on above: Result Comment: Deon ETIENNE Performed By: #### 2 [id number] #### [facility] [address] [place] [address] Glucose [Mass/Vol] 217 mg/dL High 55-99 [facility] Comment on above: Result Comment: Deon ETIENNE Performed By: #### 2 [id number] #### [facility] [address] [place] [address] HEMATOLOGYOrdered By: SYSTEM SYSTEM on 02-19-2024 Basophils/100 [...] Jorge e Manageron 02-19-2024 Interdisciplinary Note - Upholstery Tech Interdisciplinary Note - Upholstery Tech This SW met with patient today to discuss discharge plans. Plan remains for patient to go to [facility] in [place] once precert is obtained. All updates have been sent to [facility] for the precert, which was submitted on Monday. Patient requested that SW contact his once precert is obtained, or before the end of the day if not obtained today. This SW made a tc to patient's and let her know that precert is still pending. She voiced understanding. Normal [facility] Comment on above: Result Comment: Elec tronically Signed By: Fely Narvaez.br\Date and Time Signed: 02/19/24 15:59 EDT Interdisciplinary Note - Upholstery Tech Interdisciplinary Note - Upholstery Tech This SW met with patient today to discuss discharge plans. Plan remains for patient to go to [facility] in [place] once precert is obtained. All updates have been sent to [facility] for the precert, which was submitted on Monday. Patient requested that SW contact his once precert is obtained, or before the end of the day if not obtained today. Normal [facility] Comment on above: Result Comment: [...] correct. Mike Montes M.D. ca Dictated: 02/12/2024 [id number] Transcribed: 02/13/2024 [facility] Comment on above: Result Comment: Elec tronically Signed By: iMke Montes MD\.br\Date and Time Signed: 02/19/24 09:51 [...] tolerated the procedure well without complications.. Normal [facility] Comment on above: Result Comment: Elec tronically Signed By: MD Juanito, Laura Rodriguez\.br\Date and Time Signed: 02/19/24 08:36 EDT eGFRon 02-19-2024 eGFR 46 mL/min/1.73 m2 Low >=59 [facility] Comment on above: Order Comment: Order added by Discern Expert. Performed By: #### 1 [id number] #### [facility] [address] [place] [address] Capillary Glucose POCon 02-03 Glucose [Mass/Vol] 348 mg/dL High 55-99 [facility] Comment on above: Result Comment: Deon hathaway RN/ Performed By: #### 2 [id number] #### [facility] [address] [place] [address] Glucose [Mass/Vol] 323 mg/dL High 55-99 [facility] Comment on above: Result Comment: Deon hathaway RN/ Performed By: #### 2 [id number] #### [facility] [address] [place] [address] Glucose [Mass/Vol] 323 mg/dL High 55-99 [facility] Comment on above: Result Comment: Deon hathaway RN/ Performed By: #### 2 [id number] #### [facility] [address] [place] [address] Glucose [Mass/Vol] 210 mg/dL High 55-99 [facility] Comment on above: Result Comment: Deon hathaway RN/ Performed By: #### 2 [id number] #### [facility] [address] [place] [address] BMPon 02-17-2024 Anion gap [Moles/Vol] 13 mmol/L Normal 6-16 [facility] Comment on above: Performed By: #### 2 956708 #### [facility] [address] [place] [address] Calcium [Mass/Vol] 9.3 mg/dL Normal 8.9-11.1 [facility] Comment on above: Performed By: #### 2 002817 #### [facility] [address] [place] [address] Chloride [Moles/Vol] 98 mmol/L Low 101-111 [facility] Comment on above: Performed By: #### 2 633889 #### [facility] [address] [place] [address] CO2 [Moles/Vol] 28 mmol/L Normal 21-31 [facility] Comment on above: Performed By: #### 2 445661 #### [facility] [address] [place] [address] Creatinine [Mass/Vol] 1.8 mg/dL High 0.5-1.3 [facility] Comment on above: Performed By: #### 2 630327 #### [facility] [address] [place] [address] Glucose [Mass/Vol] 374 mg/dL High 55-199 [facility] Comment on above: Performed By: #### 2 [id number] #### [facility] [address] [place] [address] Potassium [Moles/Vol] 4.6 mmol/L Normal 3.5-5.3 [facility] Comment on above: Performed By: #### 2 [id number] #### [facility] [address] [place] [address] Sodium [Moles/Vol] 134 mmol/L Low 135-145 [facility] Comment on above: Performed By: #### 2 164653 #### [facility] [address] [place] [address] Urea nitrogen [Mass/Vol] 25 mg/dL High 5-21 [facility] Comment on above: Performed By: #### 2 120053 #### [facility] [address] [place] [address] Urea nitrogen/Creatinine [Mass ratio] 14 No Units Normal 10-20 [facility] Comment on above: Performed By: #### 2 288996 #### [facility] [address] [place] [address] CBC w/ Auto Diffon 4 Basophils/100 WBC (Bld) 1.0 % Normal 0.0-2.0 [facility] Comment on above: Performed By: #### 2 109454 #### [facility] [address] [place] [address] Basophils/Leukocytes Auto (Bld) [Pure # fraction] 0.1 E9/L Normal 0.0-0.2 [facility] Comment on above: Performed By: #### 2 093799 #### [facility] [address] [place] [address] Eosinophils (Bld) [#/Vol] 0.5 E9/L Normal 0.0-0.5 [facility] Comment on above: Performed By: #### 2 276910 #### [facility] [address] [place] [address] Eosinophils/100 WBC (Bld) 5.0 % Normal 0.0-8.0 [facility] Comment on above: Performed By: #### 2 067986 #### [facility] [address] [place] [address] Erythrocyte distribution width (RBC) [Ratio] 21.6 % High 10.9-14.2 [facility] Comment on above: Performed By: #### 2 778410 #### [facility] [address] [place] [address] Hematocrit (Bld) [Volume fraction] 24.8 % Low 37.7-49.0 [facility] Comment on above: Performed By: #### 2 818489 #### [facility] [address] [place] [address] Hemoglobin (Bld) [Mass/Vol] 8.5 g/dL Low 13.5-17.5 [facility] Comment on above: Performed By: #### 2 981626 #### [facility] [address] [place] [address] Lymphocytes (Bld) [#/Vol] 1.6 E9/L Normal 1.0-4.0 [facility] Comment on above: Performed By: #### 2 842461 #### [facility] [address] [place] [address] Lymphocytes/100 WBC (Bld) 15.2 % Normal 14.0-50.0 [facility] Comment on above: Performed By: #### 2 578365 #### [facility] [address] [place] [address] MCH (RBC) [Entitic mass] 24.3 pg Low 27.0-34.0 [facility] Comment on above: Performed By: #### 2 702269 #### [facility] [address] [place] [address] MCHC (RBC) [Mass/Vol] 34.2 g/dL Normal 31.4-36.0 [facility] Comment on above: Performed By: #### 2 [id number] #### [facility] [address] [place] [address] MCV (RBC) [Entitic vol] 70.9 fL Low 80.0-100.0 [facility] Comment on above: Performed By: #### 2 758035 #### [facility] [address] [place] [address] Microcytes Ql (Bld) PRESENT Invalid Interpretation Code [facility] Comment on above: Performed By: #### 2 [id number] #### [facility] [address] [place] [address] Monocytes (Bld) [#/Vol] 1.1 E9/L High 0.2-1.0 [facility] Comment on above: Performed By: #### 2 717958 #### [facility] [address] [place] [address] Neutrophils (Bld) [#/Vol] 7.1 E9/L Normal 2.0-7.5 [facility] Comment on above: Performed By: #### 2 273936 #### [facility] [address] [place] [address] Neutrophils/100 WBC (Bld) 68.3 % Normal 36.0-75.0 [facility] Comment on above: Performed By: #### 2 557746 #### [facility] [address] [place] [address] Platelet 395.0 E9/L Normal 150.0-500. 0 [facility] Comment on above: Performed By: #### 2 547500 #### [facility] [address] [place] [address] Platelet mean volume (Bld) [Entitic vol] 8.2 fL Normal 6.4-10.8 [facility] Comment on above: Performed By: #### 2 944122 #### [facility] [address] [place] [address] RBC (Bld) [#/Vol] 3.5 E12/L Low 4.3-5.9 [facility] Comment on above: Performed By: #### 2 648756 #### [facility] [address] [place] [address] RBC size Nom (Bld) SEE MORPHOLOGY Invalid Interpretation Code [facility] Comment on above: Performed By: #### 2 [id number] #### [facility] [address] [place] [address] WBC corrected for nucl RBC Auto (Bld) [#/Vol] 10.4 E9/L Normal 4.0-11.0 [facility] Comment on above: Performed By: #### 2 892061 #### [facility] [address] [place] [address] Capillary Glucose POCon 02-03 Glucose [Mass/Vol] 366 mg/dL High 55-99 [facility] Comment on above: Result Comment: Deon hathaway RN/ Performed By: #### 2 [id number] #### [facility] [address] [place] [address] Glucose [Mass/Vol] 314 mg/dL High 55-99 [facility] Comment on above: Result Comment: Deon hathaway RN/ Performed By: #### 2 [id number] #### [facility] [address] [place] [address] Glucose [Mass/Vol] 389 mg/dL High 55- [facility] Comment on above: Result Comment: Deon hathaway RN/ Performed By: #### 2 [id number] #### [facility] [address] [place] [address] Glucose [Mass/Vol] 298 mg/dL High 55-99 [facility] Comment on above: Result Comment: Deon hathaway RN/ Performed By: #### 2 [id number] #### [facility] [address] [place] [address] HEMATOLOGYOrdered By: SYSTEM SYSTEM on 02-17-2024 Microcytes Ql (Bld) PRESENT *NA* (02/17/24 10:59 AM) Invalid Interpretation Code Remisol Heme eGFRon 02-17-2024 eGFR 43 mL/min/1.73 m2 Low >=59 [facility] Comment on above: Order Comment: Order added by Discern Expert. Performed By: #### 1 [id number] #### [facility] [address] [place] [address] BMPon 02-16-2024 Anion gap [Moles/Vol] 12 mmol/L Normal 6-16 [facility] Comment on above: Performed By: #### 2 [id number] #### [facility] [address] [place] [address] Calcium [Mass/Vol] 8.5 mg/dL Low 8.9-11.1 [facility] Comment on above: Performed By: #### 2 249616 #### [facility] [address] [place] [address] Chloride [Moles/Vol] 100 mmol/L Low 101-111 [facility] Comment on above: Performed By: #### 2 636237 #### [facility] [address] [place] [address] CO2 [Moles/Vol] 27 mmol/L Normal 21-31 [facility] Comment on above: Performed By: #### 2 385093 #### [facility] [address] [place] [address] Creatinine [Mass/Vol] 1.8 mg/dL High 0.5-1.3 [facility] Comment on above: Performed By: #### 2 990005 #### [facility] [address] [place] [address] Glucose [Mass/Vol] 242 mg/dL High 55-199 [facility] Comment on above: Performed By: #### 2 092693 #### [facility] [address] [place] [address] Potassium [Moles/Vol] 3.8 mmol/L Normal 3.5-5.3 [facility] Comment on above: Performed By: #### 2 406735 #### [facility] [address] [place] [address] Sodium [Moles/Vol] 135 mmol/L Normal 135-145 [facility] Comment on above: Performed By: #### 2 938122 #### [facility] [address] [place] [address] Urea nitrogen [Mass/Vol] 25 mg/dL High 5-21 [facility] Comment on above: Performed By: #### 2 755485 #### [facility] [address] [place] [address] Urea nitrogen/Creatinine [Mass ratio] 14 No Units Normal 10-20 [facility] Comment on above: Performed By: #### 2 [id number] #### [facility] [address] [place] [address] CBC w/ Auto Diffon 4 Basophils/100 WBC (Bld) 0.7 % Normal 0.0-2.0 [facility] Comment on above: Performed By: #### 2 052171 #### [facility] [address] [place] [address] Basophils/Leukocytes Auto (Bld) [Pure # fraction] 0.1 E9/L Normal 0.0-0.2 [facility] Comment on above: Performed By: #### 2 [id number] #### [facility] [address] [place] [address] Eosinophils (Bld) [#/Vol] 0.5 E9/L Normal 0.0-0.5 [facility] Comment on above: Performed By: #### 2 373267 #### [facility] [address] [place] [address] Eosinophils/100 WBC (Bld) 4.2 % Normal 0.0-8.0 [facility] Comment on above: Performed By: #### 2 091639 #### [facility] [address] [place] [address] Erythrocyte distribution width (RBC) [Ratio] 21.5 % High 10.9-14.2 [facility] Comment on above: Performed By: #### 2 [id number] #### [facility] [address] [place] [address] Hematocrit (Bld) [Volume fraction] 22.9 % Low 37.7-49.0 [facility] Comment on above: Performed By: #### 2 291770 #### [facility] [address] [place] [address] Hemoglobin (Bld) [Mass/Vol] 7.6 g/dL Low 13.5-17.5 [facility] Comment on above: Performed By: #### 2 821436 #### [facility] [address] [place] [address] Hypochromia Auto Ql (Bld) PRESENT Invalid Interpretation Code [facility] Comment on above: Performed By: #### 2 209233 #### [facility] [address] [place] [address] Lymphocytes (Bld) [#/Vol] 1.4 E9/L Normal 1.0-4.0 [facility] Comment on above: Performed By: #### 2 428335 #### [facility] [address] [place] [address] Lymphocytes/100 WBC (Bld) 12.7 % Low 14.0-50.0 [facility] Comment on above: Performed By: #### 2 013313 #### [facility] [address] [place] [address] MCH (RBC) [Entitic mass] 23.4 pg Low 27.0-34.0 [facility] Comment on above: Performed By: #### 2 862555 #### [facility] [address] [place] [address] MCHC (RBC) [Mass/Vol] 33.0 g/dL Normal 31.4-36.0 [facility] Comment on above: Performed By: #### 2 195556 #### [facility] [address] [place] [address] MCV (RBC) [Entitic vol] 70.9 fL Low 80.0-100.0 [facility] Comment on above: Performed By: #### 2 [id number] #### [facility] [address] [place] [address] Microcytes Ql (Bld) PRESENT Invalid Interpretation Code [facility] Comment on above: Performed By: #### 2 [id number] #### [facility] [address] [place] [address] Monocytes (Bld) [#/Vol] 1.3 E9/L High 0.2-1.0 [facility] Comment on above: Performed By: #### 2 543717 #### [facility] [address] [place] [address] Neutrophils (Bld) [#/Vol] 7.7 E9/L High 2.0-7.5 [facility] Comment on above: Performed By: #### 2 067553 #### [facility] [address] [place] [address] Neutrophils/100 WBC (Bld) 70.1 % Normal 36.0-75.0 [facility] Comment on above: Performed By: #### 2 556136 #### [facility] [address] [place] [address] Platelet 284.0 E9/L Normal 150.0-500. 0 [facility] Comment on above: Performed By: #### 2 558147 #### [facility] [address] [place] [address] Platelet mean volume (Bld) [Entitic vol] 8.4 fL Normal 6.4-10.8 [facility] Comment on above: Performed By: #### 2 [id number] #### [facility] [address] [place] [address] RBC (Bld) [#/Vol] 3.2 E12/L Low 4.3-5.9 [facility] Comment on above: Performed By: #### 2 [id number] #### [facility] [address] [place] [address] RBC size Nom (Bld) SEE MORPHOLOGY Invalid Interpretation Code [facility] Comment on above: Performed By: #### 2 230396 #### [facility] [address] [place] [address] WBC corrected for nucl RBC Auto (Bld) [#/Vol] 11.0 E9/L Normal 4.0-11.0 [facility] Comment on above: Performed By: #### 2 [id number] #### [facility] [address] [place] [address] Capillary Glucose POCon 02-03 Glucose [Mass/Vol] 266 mg/dL High 55-99 [facility] Comment on above: Result Comment: Deon ETIENNE Performed By: #### 2 [id number] #### [facility] [address] [place] [address] Glucose [Mass/Vol] 319 mg/dL High 55-99 [facility] Comment on above: Result Comment: Deon ETIENNE Performed By: #### 2 [id number] #### [facility] [address] [place] [address] Glucose [Mass/Vol] 403 mg/dL High 55-99 [facility] Comment on above: Result Comment: Deon ETIENNE Performed By: #### 2 [id number] #### [facility] [address] [place] [address] Glucose [Mass/Vol] 319 mg/dL High 55-99 [facility] Comment on above: Result Comment: Deon ETIENNE Performed By: #### 2 [id number] #### [facility] [address] [place] [address] Glucose [Mass/Vol] 253 mg/dL High 55-99 [facility] Comment on above: Result Comment: Deon ETIENNE Performed By: #### 2 [id number] #### [facility] [address] [place] [address] Coding Queryon 02-16-2024 Coding Query Coding Query [...] H Dx: acute blood loss anemia Normal [facility] Inpatient Clinical Summaryon 02-16-2024 Inpatient Clinical Summary Inpatient Clinical Summary [address] [address] Clinical Summary Person Information: Name: MYRA PICKARD SR Age: 58 Years : 1965 Sex: Male PCP: TERESA LYNCH DO Marital Status: Race: White Ethnicity: Non- or Language: Slovak Visit Id: Visit Reason: I70.261 Speciality: Acuity: Enc Type: Inpatient Med Service: Medical Arrival: 02/12/2024 11:13:26 Discharge: Dispo Type: Address: [address] [place] [id number] Provider Notes: Diagnosis: 1:Hx of right BKA; [...] MD Follow up: Patient Education Information: Normal [facility] Inpatient Patient Summaryon 02-16-2024 Inpatient Patient Summary Inpatient Patient Summary [place] [address] Patient Discharge Instructions PERSON INFORMATION Name: MYRA [...] Last Dose: (more content not included)... Normal [facility] Insurance Correspondence Off 02-16-2024 Insurance [...] counts were correct. Sully Valdez Dictated: 02/12/2024 [id number] Transcribed: 02/13/2024 [facility] Interdisciplinary Note - Jorge e Manageron 02-16-2024 Interdisciplinary Note - Upholstery Tech Interdisciplinary Note - Upholstery Tech This SW received notification from [facility] that patient's had called and wanted to cancel the Acute Rehab and proceed with [facility]. TC from Acute Rehab was received asking if this was accurate and if patient understood the difference between Acute Rehab and SNF. SW met with patient and his today to update them that Acute Rehab had received precert and that per Dr. Cnatu, patient was ready to d/c as soon as precert was obtained; therefore if going to Acute Rehab, he would be discharged there today. MILANA also explained that if going to [facility], precert would have to be obtained. SW spent a lengthy amount of time going over the differences between the 2 faciliites with patient. He informed SW that his choice was to go to [facility], not [facility]. SW notified Acute Rehab [...] 3 steps to enter their home. Normal [facility] Comment on above: Result Comment: Elec tronically Signed By: Evens SÁNCHEZ, Fely Martin\.br\Date and Time Signed: 02/16/24 12:45 EDT eGFRon 02-16-2024 eGFR 43 mL/min/1.73 m2 Low >=59 [facility] Comment on above: Order Comment: Order added by Discern Expert. Performed By: #### 1 [id number] #### [facility] [address] [place] [address] [facility] Anion gap [Moles/Vol] 9 mmol/L Normal 6-16 [facility] Comment on above: Performed By: #### 2 [id number] #### [facility] [address] [place] [address] Calcium [Mass/Vol] 8.3 mg/dL Low 8.9-11.1 [facility] Comment on above: Performed By: #### 2 [id number] #### [facility] [address] [place] [address] Chloride [Moles/Vol] 98 mmol/L Low 101-111 [facility] Comment on above: Performed By: #### 2 [id number] #### [facility] [address] [place] [address] CO2 [Moles/Vol] 30 mmol/L Normal 21-31 [facility] Comment on above: Performed By: #### 2 [id number] #### [facility] [address] [place] [address] Creatinine [Mass/Vol] 1.9 mg/dL High 0.5-1.3 [facility] Comment on above: Performed By: #### 2 [id number] #### [facility] [address] [place] [address] Glucose [Mass/Vol] 319 mg/dL High 55-199 [facility] Comment on above: Performed By: #### 2 [id number] #### [facility] [address] [place] [address] Potassium [Moles/Vol] 3.9 mmol/L Normal 3.5-5.3 [facility] Comment on above: Performed By: #### 2 [id number] #### [facility] [address] [place] [address] Sodium [Moles/Vol] 133 mmol/L Low 135-145 [facility] Comment on above: Performed By: #### 2 [id number] #### [facility] [address] [place] [address] Urea nitrogen [Mass/Vol] 25 mg/dL High 5-21 [facility] Comment on above: Performed By: #### 2 [id number] #### [facility] [address] [place] [address] Urea nitrogen/Creatinine [Mass ratio] 13 No Units Normal 10-20 [facility] Comment on above: Performed By: #### 2 [id number] #### [facility] [address] [place] [address] CBC w/Indiceson 02-15-2024 Erythrocyte distribution width (RBC) [Ratio] 20.9 % High 10.9-14.2 [facility] Comment on above: Performed By: #### 2 [id number] #### [facility] [address] [place] [address] Hematocrit (Bld) [Volume fraction] 22.2 % Low 37.7-49.0 [facility] Comment on above: Performed By: #### 2 [id number] #### [facility] [address] [place] [address] Hemoglobin (Bld) [Mass/Vol] 7.7 g/dL Low 13.5-17.5 [facility] Comment on above: Performed By: #### 2 [id number] #### [facility] [address] [place] [address] MCH (RBC) [Entitic mass] 24.3 pg Low 27.0-34.0 [facility] Comment on above: Performed By: #### 2 [id number] #### [facility] [address] [place] [address] MCHC (RBC) [Mass/Vol] 34.6 g/dL Normal 31.4-36.0 [facility] Comment on above: Performed By: #### 2 [id number] #### [facility] [address] [place] [address] MCV (RBC) [Entitic vol] 70.2 fL Low 80.0-100.0 [facility] Comment on above: Performed By: #### 2 [id number] #### [facility] [address] [place] [address] Platelet 239.0 E9/L Normal 150.0-500. 0 [facility] Comment on above: Performed By: #### 2 [id number] #### [facility] [address] [place] [address] Platelet mean volume (Bld) [Entitic vol] 8.2 fL Normal 6.4-10.8 [facility] Comment on above: Performed By: #### 2 [id number] #### [facility] [address] [place] [address] RBC (Bld) [#/Vol] 3.2 E12/L Low 4.3-5.9 [facility] Comment on above: Performed By: #### 2 [id number] #### [facility] [address] [place] [address] RBC size Nom (Bld) NORMAL Invalid Interpretation Code [facility] Comment on above: Performed By: #### 2 [id number] #### [facility] [address] [place] [address] WBC corrected for nucl RBC Auto (Bld) [#/Vol] 9.0 E9/L Normal 4.0-11.0 [facility] Comment on above: Performed By: #### 2 [id number] #### [facility] [address] [place] [address] CHEMISTRYOrdered By: SYSTEM SYSTEM on 02-15-2024 Magnesium [Mass/Vol] 1.7 mg/dL Normal 1.3 - 2 .4 mg/dL Rem[facility] Chem Phosphate [Mass/Vol] 3.8 mg/dL Normal 1.9 - 4 .6 mg/dL [facility] Chem COAGULATIONOrdered By: Nely on Bruce on 02-15-2024 aPTT Coag (PPP) [Time] 28.6 s Normal 25.1 - 36.5 second(s) [facility] Comment on above: Interpretive Data: [...] the same coagulation reagent and instrumentation as [facility]. Currently there are no coagulation studies available worldwide for children to 14 days, and no normal ranges. Heparin therapeutic range (represented by Anti-Factor Xa activity of 0.2 - 0.4 U/mL) corresponds to PTT of 56.6 - 109.0 sec. INR Coag (PPP) [Relative time] 1.09 {INR} Invalid Interpretation Code [facility] Comment on above: Interpretive Data: I NR results are specifically intended to assess patients stabilized on long-term Anticoagulation therapy suggested INR s Less Intensive Anticoagulation 2.0 3.0 Conventional Range 3.0 4.5 PT Coag (PPP) [Time] 12.2 s Normal 9.4 - 1 2.5 second(s) [facility] Comment on above: Interpretive Data: [...] the same coagulation reagent and instrumentation as [facility]. Currently there are no coagulation studies available worldwide for children to 14 days, and no normal ranges. Capillary Glucose POCon 02-03 Glucose [Mass/Vol] 398 mg/dL High 55-99 [facility] Comment on above: Result Comment: Deon ETIENNE Performed By: #### 2 [id number] #### [facility] [address] [place] [address] Glucose [Mass/Vol] 337 mg/dL High [address] [place] [address] Comment on above: Result Comment: Deon ETIENNE Performed By: #### 2 [id number] #### [facility] [address] [place] [address] Glucose [Mass/Vol] 228 mg/dL High [address] [place] [address] Comment on above: Result Comment: Deon ETIENNE Performed By: #### 2 [id number] #### [facility] [address] [place] [address] Glucose [Mass/Vol] 309 mg/dL High 55-99 [facility] Comment on above: Result Comment: Deon ETIENNE Performed By: #### 2 [id number] #### [facility] [address] [place] [address] Interdisciplinary Note - Jorge e Manageron 02-15-2024 Interdisciplinary Note - Upholstery Tech Interdisciplinary Note - Upholstery Tech CRM to room 309 Patient is awake, alert and oriented. Patient is from home with his spouse. Patient verified PCP, DME and insurance. Patient is here as inpatient. Patient had Right BKA. Patient is assigned to Dr Antonio. Vascular Dr Montes did surgery. Patient is getting transfusion PRBC. Patient will need PT/OT added when appropriate. Patient would like rehab stay. Choices were [facility], [facility] and [facility]. [facility] can accept. Patient was provided CRM contact, white board updated. CRM following DC date when [facility] can take per Dr Antonio patient is not ready for DC now drop in HGB, bleeding at stump and still on IV pain meds Rehab needs him on an oral regimen Normal [facility] Comment on above: Result Comment: Elec tronically Signed By: Raina Aguilar\.br\Date and Time Signed: 02/15/24 14:08 EDT Magnesiumon 02-15-2024 Magnesium [Mass/Vol] 1.7 mg/dL Normal 1.3-2.4 [facility] Comment on above: Performed By: #### 2 [id number] #### [facility] [address] [place] [address] PT & PTTon 02-15-2024 aPTT Coag (PPP) [Time] 28.6 second(s) Normal 25.1-36.5 [facility] Comment on above: Result Comment: [...] the same coagulation reagent and instrumentation as [facility]. Currently there are no coagulation studies available worldwide for children to 14 days, and no normal ranges. Heparin therapeutic range (represented by Anti-Factor Xa activity of 0.2 - 0.4 U/mL) corresponds to PTT of 56.6 - 109.0 sec. Performed By: #### 1 [id number] #### [facility] [address] [place] [address] INR Coag (PPP) [Relative time] 1.09 {INR} Invalid Interpretation Code [facility] Comment on above: Result Comment: INR results are specifically intended to assess patients stabilized on long-term Anticoagulation therapy suggested INR?s ?Less Intensive Anticoagulation? 2.0 ? 3.0 Conventional Range 3.0 ? 4.5 Performed By: #### 1 [id number] #### [facility] [address] [place] [address] PT Coag (PPP) [Time] 12.2 second(s) Normal 9.4-12.5 [facility] Comment on above: Result Comment: [...] the same coagulation reagent and instrumentation as [facility]. Currently there are no coagulation studies available worldwide for children to 14 days, and no normal ranges. Performed By: #### 1 [id number] #### [facility] [address] [place] [address] Phosphoruson 02-15-2024 Phosphate [Mass/Vol] 3.8 mg/dL Normal 1.9-4.6 [facility] Comment on above: Performed By: #### 2 [id number] #### [facility] [address] [place] [address] eGFRon 02-15-2024 eGFR 40 mL/min/1.73 m2 Low >=59 [facility] Comment on above: Order Comment: Order added by Discern Expert. Performed By: #### 1 [id number] #### [facility] [address] [place] [address] BMPon 02-14-2024 Anion gap [Moles/Vol] 12 mmol/L Normal 6-16 [facility] Comment on above: Performed By: #### 2 [id number] #### [facility] [address] [place] [address] Calcium [Mass/Vol] 8.3 mg/dL Low 8.9-11.1 [facility] Comment on above: Performed By: #### 2 [id number] #### [facility] [address] [place] [address] Chloride [Moles/Vol] 96 mmol/L Low 101-111 [facility] Comment on above: Performed By: #### 2 [id number] #### [facility] [address] [place] [address] CO2 [Moles/Vol] 28 mmol/L Normal 21-31 [facility] Comment on above: Performed By: #### 2 [id number] #### [facility] [address] [place] [address] Creatinine [Mass/Vol] 1.8 mg/dL High 0.5-1.3 [facility] Comment on above: Performed By: #### 2 [id number] #### [facility] [address] [place] [address] Glucose [Mass/Vol] 298 mg/dL High 55-199 [facility] Comment on above: Performed By: #### 2 [id number] #### [facility] [address] [place] [address] Potassium [Moles/Vol] 3.7 mmol/L Normal 3.5-5.3 [facility] Comment on above: Performed By: #### 2 [id number] #### [facility] [address] [place] [address] Sodium [Moles/Vol] 132 mmol/L Low 135-145 [facility] Comment on above: Performed By: #### 2 [id number] #### [facility] [address] [place] [address] Urea nitrogen [Mass/Vol] 21 mg/dL Normal 5-21 [facility] Comment on above: Performed By: #### 2 [id number] #### [facility] [address] [place] [address] Urea nitrogen/Creatinine [Mass ratio] 12 No Units Normal 10-20 [facility] Comment on above: Performed By: #### 2 [id number] #### [facility] [address] [place] [address] CBC w/ Auto Diffon 4 Basophils/100 WBC (Bld) 1.9 % Normal 0.0-2.0 [facility] Comment on above: Performed By: #### 2 [id number] #### [facility] [address] [place] [address] Basophils/Leukocytes Auto (Bld) [Pure # fraction] 0.2 E9/L Normal 0.0-0.2 [facility] Comment on above: Performed By: #### 2 [id number] #### [facility] [address] [place] [address] Eosinophils (Bld) [#/Vol] 0.3 E9/L Normal 0.0-0.5 [facility] Comment on above: Performed By: #### 2 [id number] #### [facility] [address] [place] [address] Eosinophils/100 WBC (Bld) 3.1 % Normal 0.0-8.0 [facility] Comment on above: Performed By: #### 2 [id number] #### [facility] [address] [place] [address] Erythrocyte distribution width (RBC) [Ratio] 21.1 % High 10.9-14.2 [facility] Comment on above: Performed By: #### 2 [id number] #### [facility] [address] [place] [address] Hematocrit (Bld) [Volume fraction] 26.4 % Low 37.7-49.0 [facility] Comment on above: Performed By: #### 2 [id number] #### [facility] [address] [place] [address] Hemoglobin (Bld) [Mass/Vol] 8.5 g/dL Low 13.5-17.5 [facility] Comment on above: Performed By: #### 2 [id number] #### [facility] [address] [place] [address] Hypochromia Auto Ql (Bld) PRESENT Invalid Interpretation Code [facility] Comment on above: Performed By: #### 2 [id number] #### [facility] [address] [place] [address] Lymphocytes (Bld) [#/Vol] 1.1 E9/L Normal 1.0-4.0 [facility] Comment on above: Performed By: #### 2 [id number] #### [facility] [address] [place] [address] Lymphocytes/100 WBC (Bld) 11.3 % Low 14.0-50.0 [facility] Comment on above: Performed By: #### 2 [id number] #### [facility] [address] [place] [address] MCH (RBC) [Entitic mass] 23.3 pg Low 27.0-34.0 [facility] Comment on above: Performed By: #### 2 [id number] #### [facility] [address] [place] [address] MCHC (RBC) [Mass/Vol] 32.4 g/dL Normal 31.4-36.0 [facility] Comment on above: Performed By: #### 2 [id number] #### [facility] [address] [place] [address] MCV (RBC) [Entitic vol] 71.8 fL Low 80.0-100.0 [facility] Comment on above: Performed By: #### 2 [id number] #### [facility] [address] [place] [address] Microcytes Ql (Bld) PRESENT Invalid Interpretation Code [facility] Comment on above: Performed By: #### 2 [id number] #### [facility] [address] [place] [address] Monocytes (Bld) [#/Vol] 1.0 E9/L Normal 0.2-1.0 [facility] Comment on above: Performed By: #### 2 [id number] #### [facility] [address] [place] [address] Neutrophils (Bld) [#/Vol] 7.5 E9/L Normal 2.0-7.5 [facility] Comment on above: Performed By: #### 2 [id number] #### [facility] [address] [place] [address] Neutrophils/100 WBC (Bld) 74.1 % Normal 36.0-75.0 [facility] Comment on above: Performed By: #### 2 [id number] #### [facility] [address] [place] [address] Platelet mean volume (Bld) [Entitic vol] 8.3 fL Normal 6.4-10.8 [facility] Comment on above: Performed By: #### 2 [id number] #### [facility] [address] [place] [address] Platelets (Bld) [#/Vol] 244.0 E9/L Normal 150.0-500. 0 [facility] Comment on above: Performed By: #### 2 [id number] #### [facility] [address] [place] [address] RBC (Bld) [#/Vol] 3.7 E12/L Low 4.3-5.9 [facility] Comment on above: Performed By: #### 2 [id number] #### [facility] [address] [place] [address] RBC size Nom (Bld) SEE MORPHOLOGY Invalid Interpretation Code [facility] Comment on above: Performed By: #### 2 [id number] #### [facility] [address] [place] [address] WBC corrected for nucl RBC Auto (Bld) [#/Vol] 10.2 E9/L Normal 4.0-11.0 [facility] Comment on above: Performed By: #### 2 [id number] #### [facility] [address] [place] [address] CHEMISTRYOrdered By: SYSTEM SYSTEM on 02-14-2024 Magnesium [Mass/Vol] 1.8 mg/dL Normal 1.3 - 2 .4 mg/dL Remisol Chem Phosphate [Mass/Vol] 3.8 mg/dL Normal 1.9 - 4 .6 mg/dL Remisol Chem COAGULATIONOrdered By: Deborah Parks on 02-14-2024 aPTT Coag (PPP) [Time] 28.8 s Normal 25.1 - 36.5 second(s) [facility] Comment on above: Interpretive Data: [...] the same coagulation reagent and instrumentation as [facility]. Currently there are no coagulation studies available worldwide for children to 14 days, and no normal ranges. Heparin therapeutic range (represented by Anti-Factor Xa activity of 0.2 - 0.4 U/mL) corresponds to PTT of 56.6 - 109.0 sec. INR Coag (PPP) [Relative time] 1.04 {INR} Invalid Interpretation Code [facility] Comment on above: Interpretive Data: I NR results are specifically intended to assess patients stabilized on long-term Anticoagulation therapy suggested INR s Less Intensive Anticoagulation 2.0 3.0 Conventional Range 3.0 4.5 PT Coag (PPP) [Time] 11.7 s Normal 9.4 - 1 2.5 second(s) [facility] Comment on above: Interpretive Data: [...] the same coagulation reagent and instrumentation as [facility]. Currently there are no coagulation studies available worldwide for children to 14 days, and no normal ranges. Capillary Glucose POCon 02-03 Glucose [Mass/Vol] 269 mg/dL High 55-99 [facility] Comment on above: Result Comment: Deon ETIENNE Performed By: #### 2 [id number] #### [facility] [address] [place] [address] Glucose [Mass/Vol] 279 mg/dL High 55-99 [facility] Comment on above: Result Comment: Deon ETIENNE Performed By: #### 2 [id number] #### [facility] [address] [place] [address] Glucose [Mass/Vol] 285 mg/dL High 55-99 [facility] Comment on above: Result Comment: Repe at Test Performed By: #### 2 [id number] #### [facility] [address] [place] [address] Glucose [Mass/Vol] 242 mg/dL High 55-99 [facility] Comment on above: Result Comment: Repe at Test Performed By: #### 2 [id number] #### [facility] [address] [place] [address] Interdisciplinary Note - Jorge e Manageron 02-14-2024 Interdisciplinary Note - Upholstery Tech Interdisciplinary Note - Upholstery Tech This SW rounded with patient in room 309 this morning. Patient is alert, oriented, and involved in his plan of care. He remains agreeable to going to 1) [facility] Acute Rehab - referral pending, 2) [facility] - they have accepted, or 3) [facility] - they have accepted. Acute Rehab is awaiting therapy notes to make their final determination. SW will update patient once determination is received. Patient did request that SW contact his , Yamileth, with an update this afternoon. TC made to Yamileth and she was updated on the above. She voiced that patient has been refusing her recommendation for [facility] Acute Rehab, however SW let her know that he was agreeable this morning. This SW had discussed the differences between Acute Rehab and SNF to patient. Normal [facility] Comment on above: Result Comment: Elec tronically Signed By: Fely Narvaez.br\Date and Time Signed: 02/14/24 12:15 EDT Interdisciplinary Note - Upholstery Tech Interdisciplinary Note - Upholstery Tech This SW rounded with patient in room 309 this morning. Patient is alert, oriented, and involved in his plan of care. He remains agreeable to going to 1) [facility] Acute Rehab - referral pending, 2) [facility] - they have accepted, or 3) [facility] - they [facility]. Acute Rehab is awaiting therapy notes to make their final determination. SW will update patient once determination is received. Patient did request that SW contact his , Yamileth, with an update this afternoon. Normal [facility] Comment on above: Result Comment: [...] follow daily progressing as pt tolerates. Normal [facility] Magnesiumon 02-14-2024 Magnesium [Mass/Vol] 1.8 mg/dL Normal 1.3-2.4 [facility] Comment on above: Performed By: #### 2 [id number] #### [facility] [address] [place] [address] PT & PTTon 02-14-2024 aPTT Coag (PPP) [Time] 28.8 second(s) Normal 25.1-36.5 [facility] Comment on above: Result Comment: [...] the same coagulation reagent and instrumentation as [facility]. Currently there are no coagulation studies available worldwide for children to 14 days, and no normal ranges. Heparin therapeutic range (represented by Anti-Factor Xa activity of 0.2 - 0.4 U/mL) corresponds to PTT of 56.6 - 109.0 sec. Performed By: #### 1 [id number] #### [facility] [address] [place] [address] INR Coag (PPP) [Relative time] 1.04 {INR} Invalid Interpretation Code [facility] Comment on above: Result Comment: INR results are specifically intended to assess patients stabilized on long-term Anticoagulation therapy suggested INR?s ?Less Intensive Anticoagulation? 2.0 ? 3.0 Conventional Range 3.0 ? 4.5 Performed By: #### 1 [id number] #### [facility] [address] [place] [address] PT Coag (PPP) [Time] 11.7 second(s) Normal 9.4-12.5 [facility] Comment on above: Result Comment: [...] the same coagulation reagent and instrumentation as [facility]. Currently there are no coagulation studies available worldwide for children to 14 days, and no normal ranges. Performed By: #### 1 [id number] #### [facility] [address] [place] [address] Phosphoruson 02-14-2024 Phosphate [Mass/Vol] 3.8 mg/dL Normal 1.9-4.6 [facility] Comment on above: Performed By: #### 2 [id number] #### [facility] [address] [place] [address] eGFRon 02-14-2024 eGFR 43 mL/min/1.73 m2 Low >=59 [facility] Comment on above: Order Comment: Order added by Discern Expert. Performed By: #### 1 [id number] #### [facility] [address] [place] [address] BMPon 02-13-2024 Anion gap [Moles/Vol] 11 mmol/L Normal 6-16 [facility] Comment on above: Performed By: #### 2 [id number] #### [facility] [address] [place] [address] Calcium [Mass/Vol] 8.0 mg/dL Low 8.9-11.1 [facility] Comment on above: Performed By: #### 2 [id number] #### [facility] [address] [place] [address] Chloride [Moles/Vol] 99 mmol/L Low 101-111 [facility] Comment on above: Performed By: #### 2 [id number] #### [facility] [address] [place] [address] CO2 [Moles/Vol] 26 mmol/L Normal 21-31 [facility] Comment on above: Performed By: #### 2 [id number] #### [facility] [address] [place] [address] Creatinine [Mass/Vol] 1.6 mg/dL High 0.5-1.3 [facility] Comment on above: Performed By: #### 2 [id number] #### [facility] [address] [place] [address] Glucose [Mass/Vol] 234 mg/dL High 55-199 [facility] Comment on above: Performed By: #### 2 [id number] #### [facility] [address] [place] [address] Potassium [Moles/Vol] 4.0 mmol/L Normal 3.5-5.3 [facility] Comment on above: Performed By: #### 2 [id number] #### [facility] [address] [place] [address] Sodium [Moles/Vol] 132 mmol/L Low 135-145 [facility] Comment on above: Performed By: #### 2 [id number] #### [facility] [address] [place] [address] Urea nitrogen [Mass/Vol] 19 mg/dL Normal 5-21 [facility] Comment on above: Performed By: #### 2 [id number] #### [facility] [address] [place] [address] Urea nitrogen/Creatinine [Mass ratio] 12 No Units Normal 10-20 [facility] Comment on above: Performed By: #### 2 [id number] #### [facility] [address] [place] [address] CBC w/Indiceson 02-13-2024 Erythrocyte distribution width (RBC) [Ratio] 18.8 % High 10.9-14.2 [facility] Comment on above: Performed By: #### 2 [id number] #### [facility] [address] [place] [address] Hematocrit (Bld) [Volume fraction] 19.5 % Low 37.7-49.0 [facility] Comment on above: Performed By: #### 2 [id number] #### [facility] [address] [place] [address] Hemoglobin (Bld) [Mass/Vol] 6.3 g/dL Abnormal 13.5-17.5 [facility] Comment on above: Result Comment: Crit ical Result Verified by Repeat Analysis Results called to DAVID WELSH by BRAVO and read back on 02/13/2024 05:48:17. Performed By: #### 2 [id number] #### [facility] [address] [place] [address] Hypochromia Auto Ql (Bld) PRESENT Invalid Interpretation Code [facility] Comment on above: Performed By: #### 2 [id number] #### [facility] [address] [place] [address] MCH (RBC) [Entitic mass] 21.6 pg Low 27.0-34.0 [facility] Comment on above: Performed By: #### 2 [id number] #### [facility] [address] [place] [address] MCHC (RBC) [Mass/Vol] 32.3 g/dL Normal 31.4-36.0 [facility] Comment on above: Performed By: #### 2 [id number] #### [facility] [address] [place] [address] MCV (RBC) [Entitic vol] 67.0 fL Low 80.0-100.0 [facility] Comment on above: Performed By: #### 2 [id number] #### [facility] [address] [place] [address] Microcytes Ql (Bld) PRESENT Invalid Interpretation Code [facility] Comment on above: Performed By: #### 2 [id number] #### [facility] [address] [place] [address] Platelet 245.0 E9/L Normal 150.0-500. 0 [facility] Comment on above: Performed By: #### 2 [id number] #### [facility] [address] [place] [address] Platelet mean volume (Bld) [Entitic vol] 8.2 fL Normal 6.4-10.8 [facility] Comment on above: Performed By: #### 2 [id number] #### [facility] [address] [place] [address] RBC (Bld) [#/Vol] 2.9 E12/L Low 4.3-5.9 [facility] Comment on above: Performed By: #### 2 [id number] #### [facility] [address] [place] [address] RBC size Nom (Bld) SEE MORPHOLOGY Invalid Interpretation Code [facility] Comment on above: Performed By: #### 2 [id number] #### [facility] [address] [place] [address] WBC corrected for nucl RBC Auto (Bld) [#/Vol] 12.9 E9/L High 4.0-11.0 [facility] Comment on above: Performed By: #### 2 [id number] #### [facility] [address] [place] [address] CHEMISTRYOrdered By: Simon Helm on 02-13-2024 HbA1c (Bld) [Mass fraction] 10.3 % High <=5.9% [facility] ChemAutoSS CHEMISTRYOrdered By: SYSTEM SYSTEM on 02-13-2024 Magnesium [Mass/Vol] 1.3 mg/dL Normal 1.3 - 2 .4 mg/dL Remisol Chem Phosphate [Mass/Vol] 2.5 mg/dL Normal 1.9 - 4 .6 mg/dL Remisol Chem COAGULATIONOrdered By: Pietor Garibay on 02-13-2024 aPTT Coag (PPP) [Time] 27.5 s Normal 25.1 - 36.5 second(s) [facility] Comment on above: Interpretive Data: [...] the same coagulation reagent and instrumentation as [facility]. Currently there are no coagulation studies available worldwide for children to 14 days, and no normal ranges. Heparin therapeutic range (represented by Anti-Factor Xa activity of 0.2 - 0.4 U/mL) corresponds to PTT of 56.6 - 109.0 sec. INR Coag (PPP) [Relative time] 1.11 {INR} Invalid Interpretation Code [facility] Comment on above: Interpretive Data: I NR results are specifically intended to assess patients stabilized on long-term Anticoagulation therapy suggested INR s Less Intensive Anticoagulation 2.0 3.0 Conventional Range 3.0 4.5 PT Coag (PPP) [Time] 12.5 s Normal 9.4 - 1 2.5 second(s) [facility] Comment on above: Interpretive Data: [...] the same coagulation reagent and instrumentation as [facility]. Currently there are no coagulation studies available worldwide for children to 14 days, and no normal ranges. Capillary Glucose POCon 02-03 Glucose [Mass/Vol] 332 mg/dL High 55-99 [facility] Comment on above: Result Comment: Deon ETIENNE Performed By: #### 2 [id number] #### [facility] [address] [place] [address] Glucose [Mass/Vol] 194 mg/dL High 55-99 [facility] Comment on above: Result Comment: Deon ETIENNE Performed By: #### 2 [id number] #### [facility] [address] [place] [address] Glucose [Mass/Vol] 195 mg/dL High 55-99 [facility] Comment on above: Result Comment: Deon ETIENNE Performed By: #### 2 [id number] #### [facility] [address] [place] [address] Glucose [Mass/Vol] 194 mg/dL High 55-99 [facility] Comment on above: Result Comment: Deon ETIENNE Performed By: #### 2 [id number] #### [facility] [address] [place] [address] Glucose [Mass/Vol] 324 mg/dL High 55-99 [facility] Comment on above: Result Comment: Deon ETIENNE Performed By: #### 2 [id number] #### [facility] [address] [place] [address] Coding Queryon 02-13-2024 Coding Query Coding Query [...] desired or expected. Thank you!eliz [id number] Normal [facility] Hct & Hgbon 02-13-2024 Hematocrit (Bld) [Volume fraction] 24.4 % Low 37.7-49.0 [facility] Comment on above: Performed By: #### 1 [id number] #### [facility] [address] [place] [address] Hemoglobin (Bld) [Mass/Vol] 7.9 g/dL Low 13.5-17.5 [facility] Comment on above: Performed By: #### 1 [id number] #### [facility] [address] [place] [address] [id number] 02-13-2024 HbA1c (Bld) [Mass fraction] 10.3 % High <=5.9 [facility] Comment on above: Performed By: #### 7 [id number] #### [facility] [address] [place] [address] Interdisciplinary Note - Jorge e Manageron 02-13-2024 Interdisciplinary Note - Upholstery Tech Interdisciplinary Note - Upholstery Tech CRM to room 309 Patient is awake, alert and oriented. Patient is from home with his spouse. Patient verified PCP, DME and insurance. Patient is here as inpatient. Patient had Right BKA. Patient is assigned to Dr Antonio. Vascular Dr Montes did surgery. Patient is getting transfusion PRBC. Patient will need PT/OT added when appropriate. Patient [place] SN[place]. Patient is unsure of choices yet. His spouse was doing some research. CRM did try to call Spouse at [phone] and left VM. CRM did leave printed SNF list in room. Patient was provided CRM contact, white board updated. CRM following DC date TBD. CRM will get updates at 10 AM from hospitalist called CRM choices of [facility] [place] and [facility] for rehab [facility] Comment on above: Result Comment: Elec tronically Signed By: Raina Aguilar\.br\Date and Time Signed: 02/13/24 13:10 EDT Interdisciplinary Note - Upholstery Tech Interdisciplinary Note - Upholstery Tech CRM to room 309 Patient is awake, alert and oriented. Patient is from home with his spouse. Patient verified PCP, DME and insurance. Patient is here as inpatient. Patient had Right BKA. Patient is assigned to Dr Antonio. Vascular Dr Montes did surgery. Patient is getting transfusion PRBC. Patient will need PT/OT added when appropriate. Patient would like SNF at [place]. Patient is unsure of choices yet. His spouse was doing some research. CRM did try to call Spouse at [phone] and left VM. CRM did leave printed SNF list in room. Patient was provided CRM contact, white board updated. CRM following DC date TBD. CRM will get updates at 10 AM from hospitalist [facility] Comment on above: Result Comment: Elec tronically Signed By: Raina Aguilar\.br\Date and Time Signed: 02/13/24 09:21 EDT Interdisciplinary Note - Maria Elena n 02-13-2024 Interdisciplinary Note - OT Interdisciplinary Note - OT 02/13/24: OT orders received, chart reviewed. Holding OT eval this date as Pt has critically low Hbg levels. Will try again with OT eval when Pt is medically appropriate. Normal [facility] Interdisciplinary Note - PTo n 02-13-2024 Interdisciplinary Note - PT Interdisciplinary Note - PT Order received and chart reviewed. Pt with critical Hgb levels at this time. Will hold and attempt tomorrow Normal [facility] Magnesiumon 02-13-2024 Magnesium [Mass/Vol] 1.3 mg/dL Normal 1.3-2.4 [facility] Comment on above: Performed By: #### 2 [id number] #### [facility] [address] [place] [address] Main OR Intraoperative Recor don 02-13-2024 Main OR Intraoperative Record Main OR Intraoperative Record IntraOp Document Type FT Summary Primary Physician: Mike Montes MD Finalized Date/Time: 02/13/24 13:38:10 Pt. Name: MATTEO CHRISTIAN, MYRA Aceves/Sex: 1965 Male Med Rec #: [id number] Physician: Mike Montes MD Financial #: [id number] Pt. Type: I Room/Bed: [place] [address] Admit/Disch: 02/12/24 11:13:26 - Institution: Case Times [...] [facility] Role Performed Anesthesiologist Surgeon - Primary Director Counseling Bureau - Primary Boat Outboard Engine Mechanic Time In 02/12/24 13:26:00 02/12/24 13:45:00 02/12/24 13:26:00 Time Out 02/12/24 14:44:00 02/12/24 14:31:00 02/12/24 14:44:00 Procedure KNEE AMPUTATION KNEE AMPUTATION KNEE AMPUTATION BELOW(Right) BELOW(Right) BELOW(Right) Comments , anesthesia art objects supervisor Last Modified By: Sara STERN, Tyree Ruiz RN, Tyree Ruiz RN, Tyree Hopkins 02/12/24 14:44:09 02/12/24 14:44:09 02/12/24 14:44:09 Entry 4 Entry 5 Entry 6 Case Attendee Robinson STERN, Jenise Jaquez CST, Radha Corona Role Performed Director Counseling Bureau - Primary SLOT FLOOR SUPERVISOR/SA Scrub - Primary Time In 02/12/24 13:26:00 02/12/24 13:26:00 02/12/24 13:26:00 Time Out 02/12/24 14:44:00 02/12/24 14:44:00 02/12/24 14:44:00 Procedure KNEE AMPUTATION KNEE AMPUTATION KNEE AMPUTATION BELOW(Right) BELOW(Right) BELOW(Right) Comments in orientation Last Modified By: Sara STERN, Tyree Ruiz RN, Tyree Mancera RN 02/12/24 14:44:09 02/12/24 14:44:09 02/12/24 14:44:09 General Comments: Lima Puckett- dean of students, observing surgical case. Perioperative Protocols FT Pre-Care [...] I70.261-Atherosclerosis Postop Same As Preop Yes of [place] arteries of extremities with gangrene, right leg. Postop Diagnosis I70.261-Atherosclerosis Outcomes Met? Yes of [place] arteries of extremities with gangrene, right leg. [...] and tissue Entry 1 Skin Integrity Intact, [place], Warm, & Skin Abnormality No Dry Outcomes Met? Yes Last Modified By: Tyree Ruiz RN 02/12/24 12:50:23 Post-Care Text: The patient is free from signs an (more content not included)... Normal [facility] PT & PTTon 02-13-2024 aPTT Coag (PPP) [Time] 27.5 second(s) Normal 25.1-36.5 [facility] Comment on above: Result Comment: [...] the same coagulation reagent and instrumentation as [facility]. Currently there are no coagulation studies available worldwide for children to 14 days, and no normal ranges. Heparin therapeutic range (represented by Anti-Factor Xa activity of 0.2 - 0.4 U/mL) corresponds to PTT of 56.6 - 109.0 sec. Performed By: #### 1 [id number] #### [facility] [address] [place] [address] INR Coag (PPP) [Relative time] 1.11 {INR} Invalid Interpretation Code [facility] Comment on above: Result Comment: INR results are specifically intended to assess patients stabilized on long-term Anticoagulation therapy suggested INR?s ?Less Intensive Anticoagulation? 2.0 ? 3.0 Conventional Range 3.0 ? 4.5 Performed By: #### 1 [id number] #### [facility] [address] [place] [address] PT Coag (PPP) [Time] 12.5 second(s) Normal 9.4-12.5 [facility] Comment on above: Result Comment: [...] the same coagulation reagent and instrumentation as [facility]. Currently there are no coagulation studies available worldwide for children to 14 days, and no normal ranges. Performed By: #### 1 [id number] #### [facility] [address] [place] [address] Phosphoruson 02-13-2024 Phosphate [Mass/Vol] 2.5 mg/dL Normal 1.9-4.6 [facility] Comment on above: Performed By: #### 2 [id number] #### [facility] [address] [place] [address] RCOon 02-13-2024 # of Units 2 Invalid Interpretation Code [facility] Comment on above: Result Comment: 02/12 6:32 [id number] Blood product ready and called to David Hoskins at 02/13/2024 06:32:44 EDT by [id number]. Performed By: #### 1 [id number] #### [facility] [address] [place] [address] Date Required [id number] Invalid Interpretation Code [facility] Comment on above: Performed By: #### 1 [id number] #### [facility] [address] [place] [address] Order to Transfuse Yes Normal [facility] Comment on above: Performed By: #### 1 [id number] #### [facility] [address] [place] [address] Product Type None Required Invalid Interpretation Code [facility] Comment on above: Performed By: #### 1 [id number] #### [facility] [address] [place] [address] eGFRon 02-13-2024 eGFR 49 mL/min/1.73 m2 Low >=59 [facility] Comment on above: Order Comment: Order added by Discern Expert. Performed By: #### 1 [id number] #### [facility] [address] [place] [address] ABO/Rhon 02-12-2024 ABO/Rh Positive Invalid Interpretation Code [facility] Comment on above: Performed By: #### 2 [id number] #### [facility] [address] [place] [address] ABO/Rh History Checkon 02-11 ABO/Rh History Check Type verified by second s Normal [facility] Comment on above: Performed By: #### 1 [id number] #### [facility] [address] [place] [address] ABO/Rh Retypeon 02-12-2024 ABO/Rh Retype Interp Positive Invalid Interpretation Code [facility] Comment on above: Performed By: #### 1 [id number] #### [facility] [address] [place] [address] ABSCon 02-12-2024 ABSC Gel Interp Negative Normal [facility] Comment on above: Performed By: #### 1 [id number] #### [facility] [address] [place] [address] BLOOD BANKOrdered By: Rizwana Helm on 02-12-2024 ABO/Rh Retype Interp Positive Invalid Interpretation Code [facility] BB Subsection BLOOD BANKOrdered By: Cassie Gomez on 02-12-2024 ABO/Rh Interp Positive Invalid Interpretation Code [facility] BB Subsection ABSC Gel Interp Negative (02/12/24 12:00 PM) Normal [facility] BB Subsection BMPon 02-12-2024 Anion gap [Moles/Vol] 12 mmol/L Normal 6-16 [facility] Comment on above: Performed By: #### 2 [id number] #### [facility] [address] [place] [address] Calcium [Mass/Vol] 8.1 mg/dL Low 8.9-11.1 [facility] Comment on above: Performed By: #### 2 [id number] #### [facility] [address] [place] [address] Chloride [Moles/Vol] 102 mmol/L Normal 101-111 [facility] Comment on above: Performed By: #### 2 [id number] #### [facility] [address] [place] [address] CO2 [Moles/Vol] 26 mmol/L Normal 21-31 [facility] Comment on above: Performed By: #### 2 [id number] #### [facility] [address] [place] [address] Creatinine [Mass/Vol] 1.5 mg/dL High 0.5-1.3 [facility] Comment on above: Performed By: #### 2 [id number] #### [facility] [address] [place] [address] Glucose [Mass/Vol] 274 mg/dL High 55-199 [facility] Comment on above: Performed By: #### 2 [id number] #### [facility] [address] [place] [address] Potassium [Moles/Vol] 4.5 mmol/L Normal 3.5-5.3 [facility] Comment on above: Performed By: #### 2 [id number] #### [facility] [address] [place] [address] Sodium [Moles/Vol] 135 mmol/L Normal 135-145 [facility] Comment on above: Performed By: #### 2 [id number] #### [facility] [address] [place] [address] Urea nitrogen [Mass/Vol] 16 mg/dL Normal 5-21 [facility] Comment on above: Performed By: #### 2 [id number] #### [facility] [address] [place] [address] Urea nitrogen/Creatinine [Mass ratio] 11 No Units Normal 10-20 [facility] Comment on above: Performed By: #### 2 [id number] #### [facility] [address] [place] [address] Blood Bank ID#on 02-12-2024 BBID# [id number] Invalid Interpretation Code [facility] Comment on above: Performed By: #### 1 [id number] #### [facility] [address] [place] [address] CBC w/Indiceson 02-12-2024 Erythrocyte distribution width (RBC) [Ratio] 18.5 % High 10.9-14.2 [facility] Comment on above: Performed By: #### 2 [id number] #### [facility] [address] [place] [address] Hematocrit (Bld) [Volume fraction] 23.5 % Low 37.7-49.0 [facility] Comment on above: Performed By: #### 2 [id number] #### [facility] [address] [place] [address] Hemoglobin (Bld) [Mass/Vol] 7.2 g/dL Low 13.5-17.5 [facility] Comment on above: Performed By: #### 2 [id number] #### [facility] [address] [place] [address] Hypochromia Auto Ql (Bld) PRESENT Invalid Interpretation Code [facility] Comment on above: Performed By: #### 2 [id number] #### [facility] [address] [place] [address] MCH (RBC) [Entitic mass] 21.1 pg Low 27.0-34.0 [facility] Comment on above: Performed By: #### 2 [id number] #### [facility] [address] [place] [address] MCHC (RBC) [Mass/Vol] 30.7 g/dL Low 31.4-36.0 [facility] Comment on above: Performed By: #### 2 [id number] #### [facility] [address] [place] [address] MCV (RBC) [Entitic vol] 68.8 fL Low 80.0-100.0 [facility] Comment on above: Performed By: #### 2 [id number] #### [facility] [address] [place] [address] Microcytes Ql (Bld) PRESENT Invalid Interpretation Code [facility] Comment on above: Performed By: #### 2 [id number] #### [facility] [address] [place] [address] Platelet mean volume (Bld) [Entitic vol] 8.0 fL Normal 6.4-10.8 [facility] Comment on above: Performed By: #### 2 [id number] #### [facility] [address] [place] [address] Platelets (Bld) [#/Vol] 244.0 E9/L Normal 150.0-500. 0 [facility] Comment on above: Performed By: #### 2 [id number] #### [facility] [address] [place] [address] Polychromasia LM Ql (Bld) PRESENT Invalid Interpretation Code [facility] Comment on above: Performed By: #### 2 [id number] #### [facility] [address] [place] [address] RBC (Bld) [#/Vol] 3.4 E12/L Low 4.3-5.9 [facility] Comment on above: Performed By: #### 2 [id number] #### [facility] [address] [place] [address] RBC size Nom (Bld) NORMAL Invalid Interpretation Code [facility] Comment on above: Performed By: #### 2 [id number] #### [facility] [address] [place] [address] Target cells LM Ql (Bld) PRESENT Invalid Interpretation Code [facility] Comment on above: Performed By: #### 2 [id number] #### [facility] [address] [place] [address] WBC corrected for nucl RBC Auto (Bld) [#/Vol] 14.7 E9/L High 4.0-11.0 [facility] Comment on above: Performed By: #### 2 [id number] #### [facility] [address] [place] [address] CHEMISTRYOrdered By: SYSTEM SYSTEM on 02-12-2024 Glucose [Mass/Vol] 580 mg/dL Invalid Interpretation Code 55 - 199 mg/dL [facility] Comment on above: Result Comment: Crit ical Result Verified by Repeat Analysis Critical Result [id number] Called to and read back by: DAVID WELSH at: 02/12/2024 21:01:57 by:BAB Capillary Glucose POCon Glucose [Mass/Vol] 441 mg/dL High 55-99 [facility] Comment on above: Result Comment: Deon hathaway RN/ Performed By: #### 2 [id number] #### [facility] [address] [place] [address] Glucose [Mass/Vol] mg/dL Abnormal 55-99 [facility] Comment on above: Result Comment: Deon hathaway RN/ Performed By: #### 2 [id number] #### [facility] [address] [place] [address] Glucose [Mass/Vol] mg/dL Abnormal 55-99 [facility] Comment on above: Result Comment: Deon hathaway RN/ Performed By: #### 2 [id number] #### [facility] [address] [place] [address] Glucose [Mass/Vol] 259 mg/dL High 55-99 [facility] Comment on above: Result Comment: Repe at Test Performed By: #### 2 [id number] #### [facility] [address] [place] [address] Glucose [Mass/Vol] 205 mg/dL High 55-99 [facility] Comment on above: Result Comment: Deon hathaway RN/ Performed By: #### 2 [id number] #### [facility] [address] [place] [address] Glucoseon 02-12-2024 Glucose [Mass/Vol] 580 mg/dL Abnormal 55-199 [facility] Comment on above: Result Comment: Crit ical Result Verified by Repeat Analysis Critical Result [id number] Called to and read back by: DAVID WELSH at: 02/12/2024 21:01:57 by:BRAVO Performed By: #### 2 [id number] #### [facility] [address] [place] [address] HEMATOLOGYOrdered By: SYSTEM SYSTEM on 02-12-2024 Polychromasia LM Ql (Bld) PRESENT *NA* (02/12/24 4:47 PM) Invalid Interpretation Code [facility] Heme Target cells LM Ql (Bld) PRESENT *NA* (02/12/24 4:47 PM) Invalid Interpretation Code [facility] Hct & Hgbon 02-12-2024 Hematocrit (Bld) [Volume fraction] 22.7 % Low 37.7-49.0 [facility] Comment on above: Performed By: #### 1 [id number] #### [facility] [address] [place] [address] Hemoglobin (Bld) [Mass/Vol] 7.3 g/dL Low 13.5-17.5 [facility] Comment on above: Performed By: #### 1 [id number] #### [facility] [address] [place] [address] Main OR Intraoperative Recor don 02-12-2024 Main OR Intraoperative Record Main OR Intraoperative Record IntraOp Document Type FT Summary Primary Physician: Mike Montes MD Finalized Date/Time: 02/12/24 14:48:28 Pt. Name: MATTEO CHRISTIAN, MYRA Aceves/Sex: 1965 Male Med Rec #: [id number] Physician: Mike Montes MD Financial #: [id number] Pt. Type: A Room/Bed: [place] [address] Admit/Disch: 02/12/24 11:13:26 - Institution: Case Times [...] [facility] Role Performed Anesthesiologist Surgeon - Primary Director Counseling Bureau - Primary Boat Outboard Engine Mechanic Time In 02/12/24 13:26:00 02/12/24 13:45:00 02/12/24 13:26:00 Time Out 02/12/24 14:44:00 02/12/24 14:31:00 02/12/24 14:44:00 Procedure KNEE AMPUTATION KNEE AMPUTATION KNEE AMPUTATION BELOW(Right) BELOW(Right) BELOW(Right) Comments , anesthesia art objects supervisor Last Modified By: Sara STERN, Tryee Ruiz RN, Tyree Mancera RN 02/12/24 14:44:09 02/12/24 14:44:09 02/12/24 14:44:09 Entry 4 Entry 5 Entry 6 Case Attendee Robinson STERN, Jenise Jaquez CST, Radha Corona Role Performed Director Counseling Bureau - Primary SLOT FLOOR SUPERVISOR/SA Scrub - Primary Time In 02/12/24 13:26:00 02/12/24 13:26:00 02/12/24 13:26:00 Time Out 02/12/24 14:44:00 02/12/24 14:44:00 02/12/24 14:44:00 Procedure KNEE AMPUTATION KNEE AMPUTATION KNEE AMPUTATION BELOW(Right) BELOW(Right) BELOW(Right) Comments in orientation Last Modified By: Sara STERN, Tyree Ruiz RN, Tyree Mancera RN 02/12/24 14:44:09 02/12/24 14:44:09 02/12/24 14:44:09 General Comments: Lima Puckett- dean of students, observing surgical case. Perioperative Protocols FT Pre-Care [...] I70.261-Atherosclerosis Postop Same As Preop Yes of [place] arteries of extremities with gangrene, right leg. Postop Diagnosis I70.261-Atherosclerosis Outcomes Met? Yes of [place] arteries of extremities with gangrene, right leg. [...] and tissue Entry 1 Skin Integrity Intact, [place], Warm, & Skin Abnormality No Dry Outcomes Met? Yes Last Modified By: Tyree Ruiz RN 02/12/24 12:50:23 Post-Care Text: The patient is free from signs and symptoms of injury caused by extraneous objects Patient Positioning FT Pre-Ca (more content not included)... Normal [facility] Main OR PACU I Recordon Main OR PACU I Record Main OR PACU I Rec ord PACU Phase I Document Type FT Summary Primary Physician: Mike Montes MD Finalized Date/Time: 02/12/24 17:14:55 Pt. Name: MYRA PICKARD SR/Sex: 1965 Male Med Rec #: [id number] Physician: Mike Montes MD Financial #: [id number] Pt. Type: A Room/Bed: N309/01 Admit/Disch: 02/12/24 [...] Signed By: Lima Bolaños RN 02/12/24 17:14 [facility] Main OR Preoperative Recordo n 02-12-2024 Main OR Preoperative Record Main OR Preoperative Record PreOp Document Type FT Summary Primary Physician: Mike Montes MD Finalized Date/Time: 02/12/24 13:26:50 Pt. Name: MATTEO CHRISTIANMYRA/Sex: 1965 Male Med Rec #: [id number] Physician: [place] Montes MD Financial #: [id number] Pt. Type: A Room/Bed: [place] [address] Admit/Disch: 02/12/24 11:13:26 - Institution: Case Times [...] By: Tyree Ruiz RN 02/12/24 13:26 Normal [facility] PT & PTTon 02-12-2024 aPTT Coag (PPP) [Time] 28.0 second(s) Normal 25.1-36.5 [facility] Comment on above: Result Comment: [...] the same coagulation reagent and instrumentation as [facility]. Currently there are no coagulation studies available worldwide for children to 14 days, and no normal ranges. Heparin therapeutic range (represented by Anti-Factor Xa activity of 0.2 - 0.4 U/mL) corresponds to PTT of 56.6 - 109.0 sec. Performed By: #### 1 [id number] #### [facility] [address] [place] [address] INR Coag (PPP) [Relative time] 1.12 {INR} Invalid Interpretation Code [facility] Comment on above: Result Comment: INR results are specifically intended to assess patients stabilized on long-term Anticoagulation therapy suggested INR?s ?Less Intensive Anticoagulation? 2.0 ? 3.0 Conventional Range 3.0 ? 4.5 Performed By: #### 1 [id number] #### [facility] [address] [place] [address] PT Coag (PPP) [Time] 12.6 second(s) High 9.4-12.5 [facility] Comment on above: Result Comment: [...] the same coagulation reagent and instrumentation as [facility]. Currently there are no coagulation studies available worldwide for children to 14 days, and no normal ranges. Performed By: #### 1 [id number] #### [facility] [address] [place] [address] eGFRon 02-12-2024 eGFR 53 mL/min/1.73 m2 Low >=59 [facility] Comment on above: Order Comment: Order added by Discern Expert. Performed By: #### 1 [id number] #### [facility] [address] [place] [address] Activated partial thrombopla stin time (aPTT) in platelet poor plasma by coagulation aon 02-08-2024 aPTT Coag (PPP) [Time] 25.6 s 22.3-36.2 [facility] aPTT Coag (PPP) [Time] Activated partial thromboplastin time (aPTT) in platelet poor plasma by coagulation a 22.3-36.2 [facility] Basophils Auto (Bld) [#/Vol] on 02-08-2024 Basophils (Bld) [#/Vol] 0.1 10 3/uL 0.0-0.1 [facility] Basophils (Bld) [#/Vol] Automated basophil count 0.0-0.1 [facility] Basophils/100 WBC Auto (Bld) on 02-08-2024 Basophils/100 WBC (Bld) 0.7 % 0.2-2.0 [facility] Basophils/100 WBC (Bld) Automated basophil % 0.2-2.0 [facility] Eosinophils/100 WBC Auto (Bl d)on 02-08-2024 Eosinophils/100 WBC (Bld) 3.1 % 0.9-7.0 [facility] Eosinophils/100 WBC (Bld) Automated eosinophil % 0.9-7.0 [facility] Erythrocyte distribution wid th Auto (RBC) [Ratio]on 02-08-2024 Erythrocyte distribution width (RBC) [Ratio] 16.3 % High 11.0-15.0 [facility] Erythrocyte distribution width (RBC) [Ratio] Erythrocyte distribution width [Ratio] by Automated count High 11.0-15.0 [facility] Estimated glomerular filtrat ion rate (GFR) non- Americanon 02-08-2024 GFR/1.73 sq M.predicted among non-blacks MDRD (S/P/Bld) [Vol rate/Area] 38 mL/min/{1.73_m2} Low >=60 [facility] GFR/1.73 sq M.predicted among non-blacks MDRD (S/P/Bld) [Vol rate/Area] Estimated glomerular filtration rate (GFR) non- Low >=60 [facility] Hematocrit Auto (Bld) [Volum e fraction]on 02-08-2024 Hematocrit (Bld) [Volume fraction] 29.8 % Low 42.0-54.0 [facility] Hematocrit (Bld) [Volume fraction] Hematocrit [Volume Fraction] of Blood by Automated count Low 42.0-54.0 [facility] Hemoglobin [Mass/volume] in Bloodon 02-08-2024 Hemoglobin (Bld) [Mass/Vol] 9.1 g/dL Low 14.0-18.0 [facility] Hemoglobin (Bld) [Mass/Vol] Hemoglobin [Mass/volume] in Blood Low 14.0-18.0 [facility] INR in Platelet poor plasma by Coagulation assayon 02-08-2024 INR Coag (PPP) [Relative time] 1.02 {INR} [facility] Comment on above: DESIRED INR:2.0-3.0 CONDITIONS NOT LISTED BELOW2.5-3.5 FOR PROSTHETIC HEART VALVE REPLACEMENT2.5-3.5 RECURRENT THROMBOSIS INR Coag (PPP) [Relative time] INR in Platelet poor plasma by Coagulation assay [facility] Comment on above: DESIRED INR:2.0-3.0 CONDITIONS NOT LISTED BELOW2.5-3.5 FOR PROSTHETIC HEART VALVE REPLACEMENT2.5-3.5 RECURRENT THROMBOSIS Laboratory - Chemistry and C hemistry - challengeon 02-08-2024 Calcium [Mass/Vol] 9.4 mg/dL 8.5-10.1 [facility] Chloride [Moles/Vol] 99 mmol/L 98-107 [facility] CO2 [Moles/Vol] 28.9 mmol/L 21.0-32.0 [facility] Creatinine [Mass/Vol] 1.84 mg/dL High 0.70-1.30 [facility] GFR/1.73 sq M.predicted MDRD (S/P/Bld) [Vol rate/Area] 46 mL/min/{1.73_m2} Low >=60 [facility] Glucose [Mass/Vol] 184 mg/dL High 74-106 [facility] Potassium [Moles/Vol] 4.0 mmol/L 3.5-5.1 [facility] Sodium [Moles/Vol] 138 mmol/L 136-145 [facility] Urea nitrogen [Mass/Vol] 21.0 mg/dL High [...] 3/uL 4.0-11.0 [facility] WBC corrected for nucl RBC Auto (Bld) [#/Vol] Leukocytes [#/volume] corrected for nucleated erythrocytes in Blood by Automated coun 4.0-11.0 [facility] Lymphocytes Auto (Bld) [#/Vo l]on 02-08-2024 Lymphocytes (Bld) [#/Vol] 1.6 10 3/uL 1.2-3.8 [facility] Lymphocytes (Bld) [#/Vol] Lymphocytes [#/volume] in Blood by Automated count 1.2-3.8 [facility] Lymphocytes/100 WBC Auto (Bl d)on 02-08-2024 Lymphocytes/100 WBC (Bld) 15.6 % Low 20.5-60.0 [facility] Lymphocytes/100 WBC (Bld) Lymphocytes/100 leukocytes in Blood by Automated count Low 20.5-60.0 [facility] MCH Auto (RBC) [Entitic mass ]on 02-08-2024 MCH (RBC) [Entitic mass] 21.9 pg Low 25.9-34.0 [facility] MCH (RBC) [Entitic mass] MCH [Entitic mass] by Automated count Low 25.9-34.0 [facility] MCHC Auto (RBC) [Mass/Vol]on 02-08-2024 MCHC (RBC) [Mass/Vol] 30.5 g/dL 29.9-35.2 [facility] MCHC (RBC) [Mass/Vol] MCHC [Mass/volume] by Automated count 29.9-35.2 [facility] MCV Auto (RBC) [Entitic vol] on 02-08-2024 MCV (RBC) [Entitic vol] 71.8 fL Low 80.0-94.0 [facility] MCV (RBC) [Entitic vol] MCV [Entitic volume] by Automated count Low 80.0-94.0 [facility] Monocytes Auto (Bld) [#/Vol] on 02-08-2024 Monocytes (Bld) [#/Vol] 0.8 10 3/uL 0.3-0.8 [facility] Monocytes (Bld) [#/Vol] Automated blood monocyte count 0.3-0.8 [facility] Monocytes/100 WBC Auto (Bld) on 02-08-2024 Monocytes/100 WBC (Bld) 7.5 % 1.7-12.0 [facility] Monocytes/100 WBC (Bld) Automated monocyte % 1.7-12.0 [facility] Neutrophils Auto (Bld) [#/Vo l]on 02-08-2024 Neutrophils (Bld) [#/Vol] 7.4 10 3/uL High 1.4-6.5 [facility] Neutrophils (Bld) [#/Vol] Neutrophils [#/volume] in Blood by Automated count High 1.4-6.5 [facility] Neutrophils/100 WBC Auto (Bl d)on 02-08-2024 Neutrophils/100 WBC (Bld) 72.7 % 43.0-75.0 [facility] Neutrophils/100 WBC (Bld) Automated neutrophil % 43.0-75.0 [facility] No Panel Informationon 02-07 Eosinophils # (Auto) 0.3 10 3/uL 0.0-0.7 [facility] Immature Granulocyte # (Auto) 0.04 10 [...] fL 9.5-13.5 [facility] Platelet mean volume (Bld) [Entitic vol] Platelet mean volume [Entitic volume] in Blood by Automated count .-. [facility] Platelets Auto (Bld) [#/Vol] on 02-08-2024 Platelets (Bld) [#/Vol] 322 10 3/uL 150-450 [facility] Platelets (Bld) [#/Vol] Platelets [#/volume] in Blood by Automated count 150-450 [facility] Prothrombin time (PT)on PT Coag (PPP) [Time] 10.8 s 9.0-11.6 [facility] PT Coag (PPP) [Time] Prothrombin time (PT) 9.0- 11.6 [facility] RBC Auto (Bld) [#/Vol]on RBC (Bld) [#/Vol] 4.15 10 6/uL Low 4.70-6.10 [facility] RBC (Bld) [#/Vol] Erythrocytes [#/volu me] in Blood by Automated count Low 4.70-6.10 [facility] Serum or plasma anion gap de terminationon 02-08-2024 Anion gap [Moles/Vol] 14.1 mmol[facility] Anion gap [Moles/Vol] Serum or plasma an ion gap determination [facility] ALL CBC WITH AUTO DIFFon BASOPHILS ABSOLUTE AUTO 0.1 [facility] Basophils/100 WBC (Bld) 1.2 % 0.2 - 2.0 % [facility] Eosinophils/100 WBC (Bld) 2.9 % 0.9 - 7.0 % [facility] Erythrocyte distribution width (RBC) [Ratio] 16.4 % High 11.0 - 15.0 % [facility] Hematocrit (Bld) [Volume fraction] 28.7 % Low 42.0 - 54.0 % [facility] Hemoglobin (Bld) [Mass/Vol] 8.7 g/dL Low 14.0 - 18.0 g/dL [facility] IMMATURE GRANULOCYTES ABS AUTO 0.06 High [facility] Immature granulocytes/100 WBC (Bld) 0.7 % High 0.0 - 0.5 % [facility] Interpretation and review of laboratory results Abnormal [facility] LYMPHOCYTES ABSOLUTE AUTO 1.8 [facility] Lymphocytes/100 WBC (Bld) 21.5 % 20.5 - 60.0 % [facility] MCH (RBC) [Entitic mass] 22.3 pg Low 25.9 - 34.0 pg [facility] MCHC (RBC) [Mass/Vol] 30.3 g/dL 29.9 - 35.2 g/dL [facility] MCV (RBC) [Entitic vol] 73.6 fL Low 80.0 - 94.0 fL [facility] MONOCYTES ABSOLUTE AUTO 0.7 [facility] Monocytes/100 WBC (Bld) 8.7 % 1.7 - 12.0 % [facility] NEUTROPHILS ABSOLUTE AUTO 5.4 [facility] Neutrophils/100 WBC (Bld) 65.0 % 43.0 - 75.0 % [facility] Platelet mean volume (Bld) [Entitic vol] 10.4 fL 9.5 - [facility] [facility] TB PLT [address] [facility] RBC 3.[address] [facility] WBC 8.3 [facility] Activated partial thrombopla stin time (aPTT) in platelet poor plasma by coagulation aon 02-01-2024 aPTT Coag (PPP) [Time] 25.3 s 22.3-36.2 [facility] aPTT Coag (PPP) [Time] Activated partial thromboplastin time (aPTT) in platelet poor plasma by coagulation a 22.3-36.2 [facility] Basophils Auto (Bld) [#/Vol] on 02-01-2024 Basophils (Bld) [#/Vol] 0.1 10 3/uL 0.0-0.1 [facility] Basophils (Bld) [#/Vol] Automated basophil count 0.0-0.1 [facility] Basophils/100 WBC Auto (Bld) on 02-01-2024 Basophils/100 WBC (Bld) 1.2 % 0.2-2.0 [facility] Basophils/100 WBC (Bld) Automated basophil % 0.2-2.0 [facility] Eosinophils/100 WBC Auto (Bl d)on 02-01-2024 Eosinophils/100 WBC (Bld) 2.9 % 0.9-7.0 [facility] Eosinophils/100 WBC (Bld) Automated eosinophil % 0.9-7.0 [facility] Erythrocyte distribution wid th Auto (RBC) [Ratio]on 02-01-2024 Erythrocyte distribution width (RBC) [Ratio] 16.4 % High 11.0-15.0 [facility] Erythrocyte distribution width (RBC) [Ratio] Erythrocyte distribution width [Ratio] by Automated count High 11.0-15.0 [facility] Estimated glomerular filtrat ion rate (GFR) non- Americanon 02-01-2024 GFR/1.73 sq M.predicted among non-blacks MDRD (S/P/Bld) [Vol rate/Area] 34 mL/min/{1.73_m2} Low >=60 [facility] GFR/1.73 sq M.predicted among non-blacks MDRD (S/P/Bld) [Vol rate/Area] Estimated glomerular filtration rate (GFR) non- Low >=60 [facility] Hematocrit Auto (Bld) [Volum e fraction]on 02-01-2024 Hematocrit (Bld) [Volume fraction] 28.7 % Low 42.0-54.0 [facility] Hematocrit (Bld) [Volume fraction] Hematocrit [Volume Fraction] of Blood by Automated count Low 42.0-54.0 [facility] Hemoglobin [Mass/volume] in Bloodon 02-01-2024 Hemoglobin (Bld) [Mass/Vol] 8.7 g/dL Low 14.0-18.0 [facility] Hemoglobin (Bld) [Mass/Vol] Hemoglobin [Mass/volume] in Blood Low 14.0-18.0 [facility] INR in Platelet poor plasma by Coagulation assayon 02-01-2024 INR Coag (PPP) [Relative time] 1.02 {INR} [facility] Comment on above: DESIRED INR:2.0-3.0 CONDITIONS NOT LISTED BELOW2.5-3.5 FOR PROSTHETIC HEART VALVE REPLACEMENT2.5-3.5 RECURRENT THROMBOSIS INR Coag (PPP) [Relative time] INR in Platelet poor plasma by Coagulation assay [facility] Comment on above: DESIRED INR:2.0-3.0 CONDITIONS NOT LISTED BELOW2.5-3.5 FOR PROSTHETIC HEART VALVE REPLACEMENT2.5-3.5 RECURRENT THROMBOSIS Laboratory - Chemistry and C hemistry - challengeon 02-01-2024 Calcium [Mass/Vol] 9.0 mg/dL 8.5-10.1 [facility] Chloride [Moles/Vol] 100 mmol/L 98-107 [facility] CO2 [Moles/Vol] 26.7 mmol/L 21.0-32.0 [facility] Creatinine [Mass/Vol] 2.03 mg/dL High 0.70-1.30 [facility] GFR/1.73 sq M.predicted MDRD (S/P/Bld) [Vol rate/Area] 41 mL/min/{1.73_m2} Low >=60 [facility] Glucose [Mass/Vol] 268 mg/dL High 74-106 [facility] Potassium [Moles/Vol] 4.3 mmol/L 3.5-5.1 [facility] Sodium [Moles/Vol] 137 mmol/L 136-145 [facility] Urea nitrogen [Mass/Vol] 25.0 mg/dL High [...] 3/uL 4.0-11.0 [facility] WBC corrected for nucl RBC Auto (Bld) [#/Vol] Leukocytes [#/volume] corrected for nucleated erythrocytes in Blood by Automated coun 4.0-11.0 [facility] Lymphocytes Auto (Bld) [#/Vo l]on 02-01-2024 Lymphocytes (Bld) [#/Vol] 1.8 10 3/uL 1.2-3.8 [facility] Lymphocytes (Bld) [#/Vol] Lymphocytes [#/volume] in Blood by Automated count 1.2-3.8 [facility] Lymphocytes/100 WBC Auto (Bl d)on 02-01-2024 Lymphocytes/100 WBC (Bld) 21.5 % 20.5-60.0 [facility] Lymphocytes/100 WBC (Bld) Lymphocytes/100 leukocytes in Blood by Automated count 20.5-60.0 [facility] MCH Auto (RBC) [Entitic mass ]on 02-01-2024 MCH (RBC) [Entitic mass] 22.3 pg Low 25.9-34.0 [facility] MCH (RBC) [Entitic mass] MCH [Entitic mass] by Automated count Low 25.9-34.0 [facility] MCHC Auto (RBC) [Mass/Vol]on 02-01-2024 MCHC (RBC) [Mass/Vol] 30.3 g/dL 29.9-35.2 [facility] MCHC (RBC) [Mass/Vol] MCHC [Mass/volume] by Automated count 29.9-35.2 [facility] MCV Auto (RBC) [Entitic vol] on 02-01-2024 MCV (RBC) [Entitic vol] 73.6 fL Low 80.0-94.0 [facility] MCV (RBC) [Entitic vol] MCV [Entitic volume] by Automated count Low 80.0-94.0 [facility] Monocytes Auto (Bld) [#/Vol] on 02-01-2024 Monocytes (Bld) [#/Vol] 0.7 10 3/uL 0.3-0.8 [facility] Monocytes (Bld) [#/Vol] Automated blood monocyte count 0.3-0.8 [facility] Monocytes/100 WBC Auto (Bld) on 02-01-2024 Monocytes/100 WBC (Bld) 8.7 % 1.7-12.0 [facility] Monocytes/100 WBC (Bld) Automated monocyte % 1.7-12.0 [facility] Neutrophils Auto (Bld) [#/Vo l]on 02-01-2024 Neutrophils (Bld) [#/Vol] 5.4 10 3/uL 1.4-6.5 [facility] Neutrophils (Bld) [#/Vol] Neutrophils [#/volume] in Blood by Automated count 1.4-6.5 [facility] Neutrophils/100 WBC Auto (Bl d)on 02-01-2024 Neutrophils/100 WBC (Bld) 65.0 % 43.0-75.0 [facility] Neutrophils/100 WBC (Bld) Automated neutrophil % 43.0-75.0 [facility] No Panel Informationon 01-31 Eosinophils # (Auto) 0.2 10 3/uL 0.0-0.7 [facility] Immature Granulocyte # (Auto) 0.06 10 [...] fL 9.5-13.5 [facility] Platelet mean volume (Bld) [Entitic vol] Platelet mean volume [Entitic volume] in Blood by Automated count 9.5-13.5 [facility] Platelets Auto (Bld) [#/Vol] on 02-01-2024 Platelets (Bld) [#/Vol] 397 10 3/uL 150-450 [facility] Platelets (Bld) [#/Vol] Platelets [#/volume] in Blood by Automated count 150-450 [facility] Prothrombin time (PT)on 01-04 PT Coag (PPP) [Time] 10.8 s 9.0-11.6 [facility] PT Coag (PPP) [Time] Prothrombin time (PT) 9.0- 11.6 [facility] RBC Auto (Bld) [#/Vol]on RBC (Bld) [#/Vol] 3.90 10 6/uL Low 4.70-6.10 [facility] RBC (Bld) [#/Vol] Erythrocytes [#/volu me] in Blood by Automated count Low 4.70-6.10 [facility] Serum or plasma anion gap de terminationon 02-01-2024 Anion gap [Moles/Vol] 14.6 mmol/L [facility] Anion gap [Moles/Vol] Serum or plasma an ion gap determination [facility] Provider Letteron 01-29-2024 Provider Letter Provider Letter January 29, 2024 MYRA PICKARD [address] [place] [address] [address] [place] [address] : 1965 Dear Myra, We have been [...] [facility] [address], [address] [place] [address] Marquise Chatman [facility] TRANSTHORACIC ECHO (TTE) COM Anaya 01-17-2024 TRANSTHORACIC ECHO (TTE) COMPLETE [facility] [address] [place] [address], [address], [place] [address] TRANSTHORACIC ECHOCARDIOGRAM REPORT Patient Name: MYRA PICKARD Reading Physician: [id number] Bernard De La Cruz MD Study Date: 01/17/2024 Ordering Provider: [id number] BERNARD DE LA CRUZ MRN/PID: [id number] Fellow: Nurse: Date of /Age: 2 1965 / 58 years Yard Worker: Ольга Mars RDCS, RVT Gender: M Additional [...] Amputation-10/2023 CPT Codes: Echo Complete w Full Doppler-[id number] Study Detail: The following Echo studies were [...] 0.9 m/s (0.6-0.9m/s) PV Max P.3 mmHg [id number] Bernard De La Cruz MD Electronically signed on 01/18/2024 at 11:32:19 AM Final [facility] Operative Reporton 4 Operative Report Operative [...] and then obtained a micro-access upsized to 5-Yi sheath, placed the catheter in the abdominal [...] well. Mike Montes M.D. ca Dictated: 01/08/2024 [id number] Transcribed: 01/08/2024 [facility] Comment on above: Result Comment: Elec tronically [...] with any questions. Thank you! Marybeth Marquise [facility] BMPon 01-08-2024 Anion gap [Moles/Vol] 13 mmol/L Normal 6-16 [facility] Comment on above: Performed By: #### 2 [id number] #### [facility] [address] [place] [address] Calcium [Mass/Vol] 9.1 mg/dL Normal 8.9-11.1 [facility] Comment on above: Performed By: #### 2 [id number] #### [facility] [address] [place] [address] Chloride [Moles/Vol] 103 mmol/L Normal 101-111 [facility] Comment on above: Performed By: #### 2 [id number] #### [facility] [address] [place] [address] CO2 [Moles/Vol] 25 mmol/L Normal 21-31 [facility] Comment on above: Performed By: #### 2 [id number] #### [facility] [address] [place] [address] Creatinine [Mass/Vol] 1.9 mg/dL High 0.5-1.3 [facility] Comment on above: Performed By: #### 2 [id number] #### [facility] [address] [place] [address] Glucose [Mass/Vol] 138 mg/dL Normal 55-199 [facility] Comment on above: Performed By: #### 2 [id number] #### [facility] [address] [place] [address] Potassium [Moles/Vol] 4.2 mmol/L Normal 3.5-5.3 [facility] Comment on above: Performed By: #### 2 [id number] #### [facility] [address] [place] [address] Sodium [Moles/Vol] 137 mmol/L Normal 135-145 [facility] Comment on above: Performed By: #### 2 [id number] #### [facility] [address] [place] [address] Urea nitrogen [Mass/Vol] 26 mg/dL High 5-21 [facility] Comment on above: Performed By: #### 2 [id number] #### [facility] [address] [place] [address] Urea nitrogen/Creatinine [Mass ratio] 14 No Units Normal 10-20 [facility] Comment on above: Performed By: #### 2 [id number] #### [facility] [address] [place] [address] CBC w/ Auto Diffon 4 Basophils/100 WBC (Bld) 1.2 % Normal 0.0-2.0 [facility] Comment on above: Performed By: #### 2 [id number] #### [facility] [address] [place] [address] Basophils/Leukocytes Auto (Bld) [Pure # fraction] 0.1 E9/L Normal 0.0-0.2 [facility] Comment on above: Performed By: #### 2 [id number] #### [facility] [address] [place] [address] Eosinophils (Bld) [#/Vol] 0.4 E9/L Normal 0.0-0.5 [facility] Comment on above: Performed By: #### 2 [id number] #### [facility] [address] [place] [address] Eosinophils/100 WBC (Bld) 4.3 % Normal 0.0-8.0 [facility] Comment on above: Performed By: #### 2 [id number] #### [facility] [address] [place] [address] Erythrocyte distribution width (RBC) [Ratio] 17.3 % High 10.9-14.2 [facility] Comment on above: Performed By: #### 2 [id number] #### [facility] [address] [place] [address] Hematocrit (Bld) [Volume fraction] 26.8 % Low 37.7-49.0 [facility] Comment on above: Performed By: #### 2 [id number] #### [facility] [address] [place] [address] Hemoglobin (Bld) [Mass/Vol] 8.8 g/dL Low 13.5-17.5 [facility] Comment on above: Performed By: #### 2 [id number] #### [facility] [address] [place] [address] Hypochromia Auto Ql (Bld) PRESENT Invalid Interpretation Code [facility] Comment on above: Performed By: #### 2 [id number] #### [facility] [address], [place] [address] Lymphocytes (Bld) [#/Vol] 2.3 E9/L Normal 1.0-4.0 [facility] Comment on above: Performed By: #### 2 [id number] #### [facility] [address] [place] [address] Lymphocytes/100 WBC (Bld) 22.6 % Normal 14.0-50.0 [facility] Comment on above: Performed By: #### 2 [id number] #### [facility] [address] [place] [address] MCH (RBC) [Entitic mass] 24.5 pg Low 27.0-34.0 [facility] Comment on above: Performed By: #### 2 [id number] #### [facility] [address] [place] [address] MCHC (RBC) [Mass/Vol] 33.0 g/dL Normal 31.4-36.0 [facility] Comment on above: Performed By: #### 2 [id number] #### [facility] [address] [place] [address] MCV (RBC) [Entitic vol] 74.2 fL Low 80.0-100.0 [facility] Comment on above: Performed By: #### 2 [id number] #### [facility] [address] [place] [address] Microcytes Ql (Bld) PRESENT Invalid Interpretation Code [facility] Comment on above: Performed By: #### 2 [id number] #### [facility] [address] [place] [address] Monocytes (Bld) [#/Vol] 0.9 E9/L Normal 0.2-1.0 [facility] Comment on above: Performed By: #### 2 [id number] #### [facility] [address] [place] [address] Neutrophils (Bld) [#/Vol] 6.6 E9/L Normal 2.0-7.5 [facility] Comment on above: Performed By: #### 2 [id number] #### [facility] [address] [place] [address] Neutrophils/100 WBC (Bld) 63.4 % Normal 36.0-75.0 [facility] Comment on above: Performed By: #### 2 [id number] #### [facility] [address] [place] [address] Platelet 377.0 E9/L Normal 150.0-500. 0 [facility] Comment on above: Performed By: #### 2 [id number] #### [facility] [address] [place] [address] Platelet mean volume (Bld) [Entitic vol] 8.7 fL Normal 6.4-10.8 [facility] Comment on above: Performed By: #### 2 [id number] #### [facility] [address] [place] [address] RBC (Bld) [#/Vol] 3.6 E12/L Low 4.3-5.9 [facility] Comment on above: Performed By: #### 2 [id number] #### [facility] [address] [place] [address] RBC size Nom (Bld) SEE MORPHOLOGY Invalid Interpretation Code [facility] Comment on above: Performed By: #### 2 [id number] #### [facility] [address] [place] [address] WBC corrected for nucl RBC Auto (Bld) [#/Vol] 10.4 E9/L Normal 4.0-11.0 [facility] Comment on above: Performed By: #### 2 [id number] #### [facility] [address] [place] [address] Inpatient Clinical Summaryon 01-08-2024 Inpatient Clinical Summary Inpatient Clinical Summary [address] [address] Clinical Summary Person Information: Name: MYRA PICKARD SR Age: 58 Years : 1965 Sex: Male PCP: TERESA LYNCH DO Marital Status: Race: White Ethnicity: Non- or Language: Slovak Visit Id: Visit Reason: I70.261 Speciality: Acuity: Enc Type: Ambulatory/Same Day Surgery Med Service: Surgery Arrival: 01/08/2024 11:49:03 Discharge: Dispo Type: Address: [address] [place] [id number] Provider Notes: Diagnosis: Problems Active Gross hematuria [...] 2 times a day. hydrochlorothiazide-valsa rtan (hydrochlorothiazide-vals ojrge 12.5 mg-160 mg Tab) By Mouth every [...] Follow up: With: Address: When: Mike Montes [address] [place], [place] [id number] Business (1) Comments: Call for followup appointment Type Location Start [facility] [place] [facility] [place] 02/12/2024 1:15 PM 02/12/2024 1:30 PM Confirmed Patient Education Information: CV - Cardiovascular PCI Discharge Instructions (CUSTOM) Normal [facility] Inpatient Patient Summaryon 01-08-2024 Inpatient Patient Summary Inpatient Patient Summary [address] [address] Patient Discharge Instructions PERSON INFORMATION Name: MATTEO [...] Follow up: With: Address: When: Mike Montes [address] [place] [id number] [facility] (1) Comments: Call for followup appointment In the event that this physician does not participate in your insurance network, please consult with your insurance company to find a nearby participating provider. Type Location Start [facility] Office [place] [facility] [place] Evart 02/12/2024 1:15 PM 02/12/2024 1:30 PM Confirmed [...] Capsules By (more content not included)... Normal [facility] Interdisciplinary Note - Ayo shannon [...] covered with cast padding and KATHERYN. Normal [facility] eGFRon 01-08-2024 eGFR 40 mL/min/1.73 m2 Low >=59 [facility] Comment on above: Order Comment: Order added by Discern Expert. Performed By: #### 1 [id number] #### [facility] [address] [place] [address] Cholesterol in LDL Calc [Mas s/Vol]on 12-31-2023 Cholesterol in LDL [Mass/Vol] 47.0 mg/dL [facility] Comment on above: <100 mg/dl [id number] 0-129 mg/dl NEAR OR ABOVE [id number] mg/dl BORDERLINE [id number] mg/dl HIGH>190 mg/dl VERY HIGH Cholesterol in [...] Hospital Ferritin [Mass/Vol] 16.0 ng/mL Low 26.0-388.0 [facility] Iron [Mass/Vol] 8.0 ug/dL Low 65.0-175.0 [facility] Transferrin [Mass/Vol] 241 mg/dL 177-329 [facility] Comment on above: Performed at: [address] [id number] Director: Uriel Borrero PhD, Phone: [phone] Albumin [Mass/Vol] 2.4 g/dL Low 3.4-5.0 [facility] ALP [Catalytic activity/Vol] 172 U/L High 46-116 [facility] ALT [Catalytic activity/Vol] 21 U/L 16-63 [facility] AST [Catalytic activity/Vol] 8 U/L Low 15-37 [facility] Bilirubin [Mass/Vol] 0.2 mg/dL 0.2-1.0 [facility] Calcium [Mass/Vol] 8.4 mg/dL Low 8.5-10.1 [facility] Chloride [Moles/Vol] 98 mmol/L 98-107 [facility] Cholesterol [Mass/Vol] 127 mg/dL <=200 [facility] Cholesterol in HDL [Mass/Vol] 26 mg/dL Low 40-60 [facility] Comment on above: > or =60 mg/dl - LOW CARDIOVASCULAR RISK<40 mg/dl - HIGH CARDIOVASCULAR RISK CO2 [Moles/Vol] 30.5 mmol/L 21.0-32.0 [facility] Creatinine [Mass/Vol] 2.22 mg/dL High 0.70-1.30 [facility] GFR/1.73 sq M.predicted MDRD (S/P/Bld) [Vol rate/Area] 37 mL/min/{1.73_m2} Low >=60 [facility] Glucose [Mass/Vol] 348 mg/dL High 74-106 [facility] Potassium [Moles/Vol] 3.9 mmol/L 3.5-5.1 [facility] Protein [Mass/Vol] 6.3 g/dL Low 6.4-8.2 [facility] Sodium [Moles/Vol] 137 mmol/L 136-145 [facility] Triglyceride [Mass/Vol] 270 mg/dL High <=150 [...] 12-31-2023 MCHC (RBC) [Mass/Vol] 31.3 g/dL 29.9-35.2 [facility] MCV Auto (RBC) [Entitic vol] on 12-31-2023 MCV (RBC) [Entitic vol] 77.8 fL Low 80.0-94.0 [facility] No Panel Informationon 12-30 Folate 5.6 ng/mL >3.0 [facility] Comment on above: A serum folate vivian ntration of less than 3.1 ng/mL isconsidered to represent clinical deficiency.Performed at: [facility] [id number] Director: Uriel Borrero PhD, Phone: [phone] 5.6 ng/mL >3.0 [facility] [...] (Bld) [#/Vol] 3.29 10 6/uL Low 4.70-6.10 [facility] Serum or plasma albumin/glob ulin mass ratioon 12-31-2023 Albumin/Globulin [Mass ratio] 0.6 {ratio} [facility] Serum or plasma anion gap de terminationon 12-31-2023 Anion gap [Moles/Vol] 12.4 mmol/L Fi [facility] Serum or plasma total choles terol/high density [...] challengeon 12-30-2023 Calcium [Mass/Vol] 9.2 mg/dL 8.5-10.1 [facility] Chloride [Moles/Vol] 95 mmol/L Low 98-107 [facility] CO2 [Moles/Vol] 27.2 mmol/L 21.0-32.0 [facility] Creatinine [Mass/Vol] 2.23 mg/dL High 0.70-1.30 [facility] GFR/1.73 sq M.predicted MDRD (S/P/Bld) [Vol rate/Area] 37 mL/min/{1.73_m2} Low >=60 [facility] Glucose [Mass/Vol] 193 mg/dL High 74-106 [facility] Potassium [Moles/Vol] 3.6 mmol/L 3.5-5.1 [facility] Sodium [Moles/Vol] 132 mmol/L Low 136-145 [facility] Urea nitrogen [Mass/Vol] 22.0 mg/dL High [...] 12-30-2023 MCHC (RBC) [Mass/Vol] 31.4 g/dL 29.9-35.2 [facility] MCV Auto (RBC) [Entitic vol] on [...] Eosinophils # (Auto) 0.3 10 3/uL 0.0-0.7 [facility] Immature Granulocyte # (Auto) 0.07 10 [...] (Bld) [#/Vol] 3.49 10 6/uL Low 4.70-6.10 [facility] Serum or plasma anion gap de terminationon 12-30-2023 Anion gap [Moles/Vol] 13.4 mmol/L [facility] Basophils Auto (Bld) [#/Vol] on 12-23-2023 Basophils [...] 12-23-2023 Albumin [Mass/Vol] 2.2 g/dL Low 3.4-5.0 [facility] ALP [Catalytic activity/Vol] 127 U/L High 46-116 [facility] ALT [Catalytic activity/Vol] 13 U/L Low 16-63 [facility] AST [Catalytic activity/Vol] 10 U/L Low 15-37 [facility] Bilirubin [Mass/Vol] 0.2 mg/dL 0.2-1.0 [facility] Calcium [Mass/Vol] 7.4 mg/dL Low 8.5-10.1 [facility] Chloride [Moles/Vol] 103 mmol/L 98-107 [facility] CO2 [Moles/Vol] 23.4 mmol/L 21.0-32.0 [facility] Creatinine [Mass/Vol] 1.88 mg/dL High 0.70-1.30 [facility] GFR/1.73 sq M.predicted MDRD (S/P/Bld) [Vol rate/Area] 45 mL/min/{1.73_m2} Low >=60 [facility] Glucose [Mass/Vol] 357 mg/dL High 74-106 [facility] Magnesium [Mass/Vol] 1.5 mg/dL Low 1.8-2.4 [facility] Potassium [Moles/Vol] 4.4 mmol/L 3.5-5.1 [facility] Protein [Mass/Vol] 5.5 g/dL Low 6.4-8.2 [facility] Sodium [Moles/Vol] 136 mmol/L 136-145 [facility] Urea nitrogen [Mass/Vol] 30.0 mg/dL High [...] 12-23-2023 MCHC (RBC) [Mass/Vol] 30.1 g/dL 29.9-35.2 [facility] MCV Auto (RBC) [Entitic vol] on [...] Eosinophils # (Auto) 0.1 10 3/uL 0.0-0.7 [facility] Immature Granulocyte # (Auto) 0.12 10 [...] (Bld) [#/Vol] 2.84 10 6/uL Low 4.70-6.10 [facility] Serum or plasma albumin/glob ulin mass ratioon 12-23-2023 Albumin/Globulin [Mass ratio] 0.7 {ratio} [facility] Serum or plasma anion gap de terminationon 12-23-2023 Anion gap [Moles/Vol] 14.0 mmol/L Fi [facility] Basophils Auto (Bld) [#/Vol] on 12-22-2023 [...] challengeon 12-22-2023 Bilirubin Ql (U) Negative NEGATIVE [facility] Glucose (U) [Mass/Vol] mg/dL Abnormal NEGATIVE [facility] Ketones Ql (U) Negative NEGATIVE [facility] pH (U) 6.5 [pH] 5.0-9.0 [facility] Specific gravity (U) [Rel density] <=1.005 Abnormal 1.005-1.02 5 [facility] Urobilinogen Qn (U) 0.2 {Brendan'U}/dL 0.2-1.0 [facility] Calcium [Mass/Vol] 7.2 mg/dL Low 8.5-10.1 [facility] Chloride [Moles/Vol] 95 mmol/L Low 98-107 [facility] CO2 [Moles/Vol] 21.7 mmol/L 21.0-32.0 [facility] Creatinine [Mass/Vol] 2.80 mg/dL High 0.70-1.30 [facility] GFR/1.73 sq M.predicted MDRD (S/P/Bld) [Vol rate/Area] 28 mL/min/{1.73_m2} Low >=60 [facility] Glucose [Mass/Vol] 683 mg/dL High 74-106 [facility] Comment on above: RESULTS CALLED TO Me Faraz Pickard RN Potassium [Moles/Vol] 4.8 mmol/L 3.5-5.1 [facility] Sodium [Moles/Vol] 129 mmol/L Low 136-145 [facility] Urea nitrogen [Mass/Vol] 27.0 mg/dL High 7.0-18.0 [facility] Urea nitrogen/Creatinine [Mass ratio] 9.6 mg/mg [facility] Albumin [Mass/Vol] 2.3 g/dL Low 3.4-5.0 [facility] ALP [Catalytic activity/Vol] 143 U/L High 46-116 [facility] ALT [Catalytic activity/Vol] 15 U/L Low 16-63 [facility] AST [Catalytic activity/Vol] 9 U/L Low 15-37 [facility] Bilirubin [Mass/Vol] 0.2 mg/dL 0.2-1.0 [facility] Magnesium [Mass/Vol] 0.9 mg/dL Low 1.8-2.4 [facility] Comment on above: RESULTS CALLED TO FATIMAH SANTIAGO RN Natriuretic peptide B (Bld) [Mass/Vol] 322.0 pg/mL <=900.0 [facility] Protein [Mass/Vol] 6.1 g/dL Low 6.4-8.2 [facility] - Hematology and Cell countson [...] Ql (Urine sed) NONE SEEN NONE SEEN [facility] Nitrite Ql (U) Negative NEGATIVE [facility] [...] 12-22-2023 MCHC (RBC) [Mass/Vol] 29.9 g/dL 29.9-35.2 [facility] MCV Auto (RBC) [Entitic vol] on [...] Urine Bacteria NONE SEEN #/HPF NONE SEEN [facility] Urine Occult Blood Negative NEGATIVE [facility] Urine Other Casts NONE SEEN #/LPF NONE SEEN [facility] Urine Other Crystals None Seen #/HPF [...] Eosinophils # (Auto) 0.0 10 3/uL 0.0-0.7 [facility] Immature Granulocyte # (Auto) 0.11 10 3/uL High 0.00-0.03 [facility] Phosphorus Level 2.7 mg/dL 2.6-4.7 [facility] 322.0 pg/mL <=900.0 [facility] [...] (Bld) [#/Vol] 3.11 10 6/uL Low 4.70-6.10 [facility] Serum or plasma albumin/glob ulin mass ratioon 12-22-2023 Albumin/Globulin [Mass ratio] 0.6 {ratio} [facility] Serum or plasma anion gap de terminationon 12-22-2023 Anion gap [Moles/Vol] 17.1 mmol/L Fi [facility] Activated partial thrombopla stin time (aPTT) in platelet poor plasma by coagulation aon 12-21-2023 aPTT Coag (PPP) [Time] 26.6 s 22.3-36.2 Fi [facility] Basophils Auto (Bld) [#/Vol] on 12-21-2023 [...] 12-21-2023 Albumin [Mass/Vol] 2.8 g/dL Low 3.4-5.0 [facility] ALP [Catalytic activity/Vol] 132 U/L High 46-116 [facility] ALT [Catalytic activity/Vol] 13 U/L Low 16-63 [facility] AST [Catalytic activity/Vol] 10 U/L Low 15-37 [facility] Bilirubin [Mass/Vol] 0.3 mg/dL 0.2-1.0 [facility] Calcium [Mass/Vol] 7.8 mg/dL Low 8.5-10.1 [facility] Chloride [Moles/Vol] 99 mmol/L 98-107 [facility] CO2 [Moles/Vol] 29.9 mmol/L 21.0-32.0 [facility] Creatinine [Mass/Vol] 2.79 mg/dL High 0.70-1.30 [facility] GFR/1.73 sq M.predicted MDRD (S/P/Bld) [Vol rate/Area] 29 mL/min/{1.73_m2} Low >=60 [facility] Glucose [Mass/Vol] 56 mg/dL Low 74-106 [facility] Lactate [Moles/Vol] 1.6 mmol/L 0.4-2.0 [facility] Natriuretic peptide B (Bld) [Mass/Vol] 222.0 pg/mL <=900.0 [facility] Potassium [Moles/Vol] 3.3 mmol/L Low 3.5-5.1 [facility] Protein [Mass/Vol] 6.8 g/dL 6.4-8.2 [facility] Sodium [Moles/Vol] 138 mmol/L 136-145 [facility] Urea nitrogen [Mass/Vol] 29.0 mg/dL High [...] 12-21-2023 MCHC (RBC) [Mass/Vol] 30.5 g/dL 29.9-35.2 [facility] MCV Auto (RBC) [Entitic vol] on [...] # (Auto) 0.5 10 3/uL 0.0-0.7 [facility] Immature Granulocyte # (Auto) 0.13 10 3/uL [...] PT Coag (PPP) [Time] 11.1 s 9.0-11.6 [facility] RBC Auto (Bld) [#/Vol]on RBC (Bld) [#/Vol] 3.48 10 6/uL Low 4.70-6.10 [facility] Serum or plasma albumin/glob ulin mass ratioon 12-21-2023 Albumin/Globulin [Mass ratio] 0.7 {ratio} [facility] Serum or plasma anion gap de terminationon 12-21-2023 Anion gap [Moles/Vol] 12.4 mmol/L [facility] Guy 12-15-2023 L Normal [facility] Basophils Auto (Bld) [#/Vol] [...] 12-10-2023 Albumin [Mass/Vol] 2.8 g/dL Low 3.4-5.0 [facility] ALP [Catalytic activity/Vol] 119 U/L High 46-116 [facility] ALT [Catalytic activity/Vol] 11 U/L Low 16-63 [facility] AST [Catalytic activity/Vol] 10 U/L Low 15-37 [facility] Bilirubin [Mass/Vol] 0.4 mg/dL 0.2-1.0 [facility] Calcium [Mass/Vol] 8.4 mg/dL Low 8.5-10.1 [facility] Chloride [Moles/Vol] 101 mmol/L 98-107 [facility] CO2 [Moles/Vol] 27.0 mmol/L 21.0-32.0 [facility] Creatinine [Mass/Vol] 1.83 mg/dL High 0.70-1.30 [facility] GFR/1.73 sq M.predicted MDRD (S/P/Bld) [Vol rate/Area] 46 mL/min/{1.73_m2} Low >=60 [facility] Glucose [Mass/Vol] 113 mg/dL High 74-106 [facility] Potassium [Moles/Vol] 3.3 mmol/L Low 3.5-5.1 [facility] Protein [Mass/Vol] 6.7 g/dL 6.4-8.2 [facility] Sodium [Moles/Vol] 134 mmol/L Low 136-145 [facility] Urea nitrogen [Mass/Vol] 21.0 mg/dL High [...] 12-10-2023 MCHC (RBC) [Mass/Vol] 30.7 g/dL 29.9-35.2 [facility] MCV Auto (RBC) [Entitic vol] on [...] Eosinophils # (Auto) 0.3 10 3/uL 0.0-0.7 [facility] Immature Granulocyte # (Auto) 0.03 10 [...] (Bld) [#/Vol] 4.19 10 6/uL Low 4.70-6.10 [facility] Serum or plasma albumin/glob ulin mass ratioon 12-10-2023 Albumin/Globulin [Mass ratio] 0.7 {ratio} [facility] Serum or plasma anion gap de terminationon 12-10-2023 Anion gap [Moles/Vol] 9.3 mmol/L [facility] Basophils Auto (Bld) [#/Vol] on 12-09-2023 [...] 12-09-2023 Lactate [Moles/Vol] 2.9 mmol/L High 0.4-2.0 [facility] Comment on above: RESULTS CALLED TO RM SHARPE RN Bilirubin Ql (U) Negative NEGATIVE [facility] Glucose (U) [Mass/Vol] 500 mg/dL Abnormal NEGATIVE [facility] Ketones Ql (U) Negative NEGATIVE [facility] pH (U) 6.5 [pH] 5.0-9.0 [facility] Specific gravity (U) [Rel density] 1.020 1.005-1.02 5 [facility] Urobilinogen Qn (U) 0.2 {Brendan'U}/dL 0.2-1.0 [facility] Albumin [Mass/Vol] 3.5 g/dL 3.4-5.0 [facility] ALP [Catalytic activity/Vol] 141 U/L High 46-116 [facility] ALT [Catalytic activity/Vol] 13 U/L Low 16-63 [facility] AST [Catalytic activity/Vol] 8 U/L Low 15-37 [facility] Bilirubin [Mass/Vol] 0.7 mg/dL 0.2-1.0 [facility] Calcium [Mass/Vol] 9.6 mg/dL 8.5-10.1 [facility] Chloride [Moles/Vol] 99 mmol/L 98-107 [facility] CO2 [Moles/Vol] 21.7 mmol/L 21.0-32.0 [facility] Creatinine [Mass/Vol] 2.17 mg/dL High 0.70-1.30 [facility] GFR/1.73 sq M.predicted MDRD (S/P/Bld) [Vol rate/Area] 38 mL/min/{1.73_m2} Low >=60 [facility] Glucose [Mass/Vol] 191 mg/dL High 74-106 [facility] Magnesium [Mass/Vol] 1.6 mg/dL Low 1.8-2.4 [facility] Potassium [Moles/Vol] 3.8 mmol/L 3.5-5.1 [facility] Protein [Mass/Vol] 8.1 g/dL 6.4-8.2 [facility] Sodium [Moles/Vol] 135 mmol/L Low 136-145 [facility] Urea nitrogen [Mass/Vol] 20.0 mg/dL High [...] 12-09-2023 MCHC (RBC) [Mass/Vol] 31.1 g/dL 29.9-35.2 [facility] MCV Auto (RBC) [Entitic vol] on [...] [facility] Urine Occult Blood Negative NEGATIVE [facility] Negative NEG/TRACE [facility] [...] # (Auto) 0.2 10 3/uL 0.0-0.7 [facility] Immature Granulocyte # (Auto) 0.03 10 3/uL [...] RBC (Bld) [#/Vol] 4.76 10 6/uL 4.70-6.10 [facility] Serum or plasma albumin/glob ulin mass ratioon 12-09-2023 Albumin/Globulin [Mass ratio] 0.8 {ratio} [facility] Serum or plasma anion gap de terminationon 12-09-2023 Anion gap [Moles/Vol] 18.1 mmol/L [facility] Outside Operativeon 11-28-19 24 Outside Operative [id number]#1.00TIFF Normal [facility] Physician Orderon 11-28-2023 Physician Order [id number]#1.00TIFF Normal [facility] Basophils Auto (Bld) [#/Vol] on [...] 11-26-2023 Albumin [Mass/Vol] 3.2 g/dL Low 3.4-5.0 [facility] ALP [Catalytic activity/Vol] 143 U/L High 46-116 [facility] ALT [Catalytic activity/Vol] 16 U/L 16-63 [facility] AST [Catalytic activity/Vol] 14 U/L Low 15-37 [facility] Bilirubin [Mass/Vol] 0.5 mg/dL 0.2-1.0 [facility] Calcium [Mass/Vol] 9.1 mg/dL 8.5-10.1 [facility] Chloride [Moles/Vol] 101 mmol/L 98-107 [facility] CO2 [Moles/Vol] 24.2 mmol/L 21.0-32.0 [facility] Creatinine [Mass/Vol] 1.72 mg/dL High 0.70-1.30 [facility] GFR/1.73 sq M.predicted MDRD (S/P/Bld) [Vol rate/Area] 50 mL/min/{1.73_m2} Low >=60 [facility] Glucose [Mass/Vol] 132 mg/dL High 74-106 [facility] Lactate [Moles/Vol] 3.6 mmol/L High 0.4-2.0 [facility] Comment on above: RESULTS CALLED TO DR CROOK/YASMIN Potassium [Moles/Vol] 3.7 mmol/L 3.5-5.1 [facility] Protein [Mass/Vol] 7.4 g/dL 6.4-8.2 [facility] Sodium [Moles/Vol] 138 mmol/L 136-145 [facility] Urea nitrogen [Mass/Vol] 26.0 mg/dL High 7.0-18.0 [facility] Urea nitrogen/Creatinine [Mass ratio] 15.1 mg/mg [facility] Laboratory - Hematology and Cell countson 11-26-2023 ESR (Bld) [Velocity] 96 mm/h High <=20 [facility] Immature granulocytes/100 WBC (Bld) 0.4 % 0.0-0.5 [...] MCHC (RBC) [Mass/Vol] 29.6 g/dL Low 29.9-35.2 [facility] MCV Auto (RBC) [Entitic vol] on [...] Eosinophils # (Auto) 0.3 10 3/uL 0.0-0.7 [facility] Immature Granulocyte # (Auto) 0.04 10 [...] (Bld) [#/Vol] 3.95 10 6/uL Low 4.70-6.10 [facility] Serum or plasma albumin/glob ulin mass ratioon 11-26-2023 Albumin/Globulin [Mass ratio] 0.8 {ratio} [facility] Serum or plasma anion gap de terminationon 11-26-2023 Anion gap [Moles/Vol] 16.5 mmol/L [facility] Progress Note-Physicianon Progress Note-Physician [id number]#1.00TIFF Normal [facility] Basophils Auto (Bld) [#/Vol] on [...] / [facility] Hemoglobin [Mass/volume] in Bloodon 11-15-2023 Hemoglobin (Bld) [Mass/Vol] 8.5 g/dL Low 14.0-18.0 [facility] Laboratory - Chemistry and C hemistry - challengeon 11-15-2023 Albumin [Mass/Vol] 2.4 g/dL Low 3.4-5.0 [facility] ALP [Catalytic activity/Vol] 194 U/L High 46-116 [facility] ALT [Catalytic activity/Vol] 22 U/L 16-63 [facility] AST [Catalytic activity/Vol] 25 U/L 15-37 [facility] Bilirubin [Mass/Vol] 0.9 mg/dL 0.2-1.0 [facility] Calcium [Mass/Vol] 8.9 mg/dL 8.5-10.1 [facility] Chloride [Moles/Vol] 97 mmol/L Low 98-107 [facility] CO2 [Moles/Vol] 26.6 mmol/L 21.0-32.0 [facility] Creatinine [Mass/Vol] 1.63 mg/dL High 0.70-1.30 [facility] GFR/1.73 sq M.predicted MDRD (S/P/Bld) [Vol rate/Area] 53 mL/min/{1.73_m2} Low >=60 [facility] Glucose [Mass/Vol] 226 mg/dL High 74-106 [facility] Lactate [Moles/Vol] 1.4 mmol/L 0.4-2.0 [facility] Potassium [Moles/Vol] 4.1 mmol/L 3.5-5.1 [facility] Protein [Mass/Vol] 7.1 g/dL 6.4-8.2 [facility] Sodium [Moles/Vol] 135 mmol/L Low 136-145 [facility] Urea nitrogen [Mass/Vol] 24.0 mg/dL High [...] 11-15-2023 MCHC (RBC) [Mass/Vol] 30.8 g/dL 29.9-35.2 [facility] MCV Auto (RBC) [Entitic vol] on [...] Eosinophils # (Auto) 0.6 10 3/uL 0.0-0.7 [facility] Immature Granulocyte # (Auto) 0.06 10 [...] (Bld) [#/Vol] 3.41 10 6/uL Low 4.70-6.10 [facility] Serum or plasma albumin/glob ulin mass ratioon 11-15-2023 Albumin/Globulin [Mass ratio] 0.5 {ratio} [facility] Serum or plasma anion gap de terminationon 11-15-2023 Anion gap [Moles/Vol] 15.5 mmol/L [facility] BASIC METABOLIC PANLon 11-13 Anion gap [Moles/Vol] 10 mmol/L Normal 5-15 [facility] Comment on above: Performed By: #### C BC, BMP, 16[address]-1, 2776-06 ####[facility] ([id number])[address] [address] [place] [address] Calcium [Mass/Vol] 8.8 mg/dL Normal 8.5-10.5 [facility] Comment on above: Performed By: #### C BC, BMP, , 2776-06 ####[facility] ([id number])[address] [address] Chloride [Moles/Vol] 99 mmol/L Normal 98-109 [facility] Comment on above: Performed By: #### C ALLY, KENDALL, , 2776-06 ####[facility] ([id number])[address] [address] CO2 [Moles/Vol] 26 mmol/L Normal 22-32 [facility] Comment on above: Performed By: #### Snehal CANALES, KENDALL, , 2776-06 ####[facility] ([id number])[address] [address] Creatinine [Mass/Vol] 1.61 mg/dL High 0.60-1.30 [facility] Comment on above: Result Comment: METH OD TRACEABLE TO IDMS STANDARD Performed By: #### C ALLY, BMP, , 2776-06 ####[facility] ([id number])[address] [address] GFR/1.73 sq M.predicted among non-blacks MDRD (S/P/Bld) [Vol rate/Area] 49 mL/min/{1.73_m2} Low >59 [facility] Comment on above: Result Comment: Reported eGFR is based on the CKD-EPI 2020 equation that does not use a race coefficient. Performed By: #### C BC, BMP, , 2776-06 ####[facility] ([id number])[address], [place] [address] Glucose [Mass/Vol] 184 mg/dL High 65-99 [facility] Comment on above: Performed By: #### KENDALL AHUJA, , 2776-06 ####[facility] ([id number])[address], [address] [address] Potassium [Moles/Vol] 4.0 mmol/L Normal 3.5-5.0 [facility] Comment on above: Performed By: #### C ALLY, KENDALL, , 2776-06 ####[facility] ([id number])[address], [address] [address] Sodium [Moles/Vol] 135 mmol/L Normal 134-146 [facility] Comment on above: Performed By: #### KENDALL AHUJA, , 2776-06 ####[facility] ([id number])[address] [address] [address] Urea nitrogen [Mass/Vol] 23 mg/dL Normal 5-23 [facility] Comment on above: Performed By: #### KENDALL AHUJA, , 2776-06 ####[facility] ([id number])[address] [address] [place] [address] COMPLETE BLOOD COUNTon 11-13 Erythrocyte distribution width (RBC) [Ratio] 22.8 % High 11.5-15.0 [facility] Comment on above: Performed By: #### KENDALL AHUJA, , 2776-06 ####[facility] ([id number])[address], [address] [address] Hematocrit (Bld) [Volume fraction] 25.1 % Low 39-49 [facility] Comment on above: Performed By: #### KENDALL AHUJA, , 2776-06 ####[facility] ([id number])[address], [address], [place] [address] Hemoglobin (Bld) [Mass/Vol] 8.1 g/dL Low 13.0-17.0 [facility] Comment on above: Performed By: #### KENDALL AHUJA, , 2776-06 ####[facility] ([id number])[address], [address], [place] [address] MCH (RBC) [Entitic mass] 25.1 pg Low 27-34 [facility] Comment on above: Performed By: #### KENDALL AHUJA, , 2776-06 ####[facility] ([id number])[address], [address], [place] [address] MCHC (RBC) [Mass/Vol] 32.4 g/dL Normal 32-36 [facility] Comment on above: Performed By: #### KENDALL AHUJA, , 2776-06 ####[facility] ([id number])[address], [address], [place] [address] MCV (RBC) [Entitic vol] 77 fL Low 80-100 [facility] Comment on above: Performed By: #### KENDALL AHUJA, , 2776-06 ####[facility] ([id number])[address], [address], [place] [address] Platelet mean volume (Bld) [Entitic vol] 8.8 fL Normal 7-12 [facility] Comment on above: Performed By: #### Snehal CANALES, BMP, , 2776-06 ####[facility] ([id number])[address], [address], [place] [address] Platelets (Bld) [#/Vol] 232 10*3/uL Normal 150-450 [facility] Comment on above: Performed By: #### KENDALL AHUJA, , 2776-06 ####[facility] ([id number])[address], [address] [address] RBC COUNT 3.25 X10E12/L Low 4.10-5.70 [facility] Comment on above: Performed By: #### C ALLY, [facility], , 2776-06 ####[facility] ([id number])[address], [address] [place] [address] WBC (Bld) [#/Vol] 8.4 10*3/uL Normal 4.0-11.0 [facility] Comment on above: Performed By: #### C ALLY, [facility], , 2776-06 ####[facility] ([id number])[address], [address] [address] Glucose Glucometer (BldC) [M ass/Vol]on 11-14-2023 Glucose [Mass/Vol] 173 mg/dL High 65-99 [facility] Glucose [Mass/Vol] 279 mg/dL High 65-99 [facility] Glucose [Mass/Vol] 249 mg/dL High 65-99 [facility] MAGNESIUMon 11-14-2023 Magnesium [Mass/Vol] 2.1 mg/dL Normal 1.8-2.6 [facility] Comment on above: Performed By: #### 1 9123-9 ####[facility] ([id number])[address], [address], [place] [address] Magnesium [Mass/Vol] mg/dL Critically low 1.8-2.6 [facility] Comment on above: Performed By: #### 1 9123-9 ####[facility] ([id number])[address], [address], [place] [address] Magnesium [Mass/Vol] 1.7 mg/dL Low 1.8-2.6 [facility] Comment on above: Performed By: #### C ALLY, BMP, , 2776-06 ####[facility] ([id number])[address], [address], [place] [address] PHOSPHORUSon 11-14-2023 Phosphate [Mass/Vol] 3.6 mg/dL Normal 2.4-4.9 [facility] Comment on above: Performed By: #### C ALLY, BMP, , 2776-06 ####[facility] ([id number])[address], [address], [place] [address] BASIC METABOLIC PANLon 11-12 Anion gap [Moles/Vol] 10 mmol/L Normal 5-15 [facility] Comment on above: Performed By: #### C ALLY, BMP, , 2776-06 ####[facility] ([id number])[address], [address], [place] [address] Calcium [Mass/Vol] 8.9 mg/dL Normal 8.5-10.5 [facility] Comment on above: Performed By: #### Snehal CANALES, BMP, , 2776-06 ####[facility] ([id number])[address], [address], [place] [address] Chloride [Moles/Vol] 98 mmol/L Normal 98-109 [facility] Comment on above: Performed By: #### Snehal CANALES, BMP, , 2776-06 ####[facility] ([id number])[address], [address], [place] [address] CO2 [Moles/Vol] 27 mmol/L Normal 22-32 [facility] Comment on above: Performed By: #### C ALLY, BMP, , 2776-06 ####[facility] ([id number])[address], [address], [place] [address] Creatinine [Mass/Vol] 1.47 mg/dL High 0.60-1.30 [facility] Comment on above: Result Comment: METH OD TRACEABLE TO IDMS STANDARD Performed By: #### C KENDALL CANALES, , 2776-06 ####[facility] ([id number])[address] [place] [address] GFR/1.73 sq M.predicted among non-blacks MDRD (S/P/Bld) [Vol rate/Area] 55 mL/min/{1.73_m2} Low >59 [facility] Comment on above: Result Comment: Reported eGFR is based on the CKD-EPI 2020 equation that does not use a race coefficient. Performed By: #### C KENDALL CANALES, , 2776-06 ####[facility] ([id number])[address], [address], [place] [address] Glucose [Mass/Vol] 164 mg/dL High 65-99 [facility] Comment on above: Performed By: #### KENDALL AHUJA, , 2776-06 ####[facility] ([id number])[address] [address] [place] [address] Potassium [Moles/Vol] 3.8 mmol/L Normal 3.5-5.0 [facility] Comment on above: Performed By: #### KENDALL AHUJA, , 2776-06 ####[facility] ([id number])[address] [address] [place] [address] Sodium [Moles/Vol] 135 mmol/L Normal 134-146 [facility] Comment on above: Performed By: #### KENDALL AHUJA, , 2776-06 ####[facility] ([id number])[address], [address] [place] [address] Urea nitrogen [Mass/Vol] 26 mg/dL High 5-23 [facility] Comment on above: Performed By: #### C KENDALL CANALES, , 2776-06 ####[facility] ([id number])[address] [place] [address] COMPLETE BLOOD COUNTon 11-12 Erythrocyte distribution width (RBC) [Ratio] 23.2 % High 11.5-15.0 [facility] Comment on above: Performed By: #### C ALLY, [facility], , 2776-06 ####[facility] ([id number])[address], [address] [place] [address] Hematocrit (Bld) [Volume fraction] 24.7 % Low 39-49 [facility] Comment on above: Performed By: #### C ALLY, [facility], , 2776-06 ####[facility] ([id number])[address] [place] [address] Hemoglobin (Bld) [Mass/Vol] 8.2 g/dL Low 13.0-17.0 [facility] Comment on above: Performed By: #### Snehal CANALES, [facility], , 2776-06 ####[facility] ([id number])[address], [address] [place] [address] MCH (RBC) [Entitic mass] 25.7 pg Low 27-34 [facility] Comment on above: Performed By: #### Snehal CANALES, [facility], , 2776-06 ####[facility] ([id number])[address] [place] [address] MCHC (RBC) [Mass/Vol] 33.4 g/dL Normal 32-36 [facility] Comment on above: Performed By: #### C ALLY, BMP, , 2776-06 ####[facility] ([id number])[address], [address] [place] [address] MCV (RBC) [Entitic vol] 77 fL Low 80-100 [facility] Comment on above: Performed By: #### Snehal CANALES, [facility], , 2776-06 ####[facility] ([id number])[address], [address] [address] Platelet mean volume (Bld) [Entitic vol] 8.8 fL Normal 7-12 [facility] Comment on above: Performed By: #### Snehal CANALES [facility], , 2776-06 ####[facility] ([id number])[address], [address] [address] Platelets (Bld) [#/Vol] 207 10*3/uL Normal 150-450 [facility] Comment on above: Performed By: #### KENDALL AHUJA, , 2776-06 ####[facility] ([id number])[address], [address] [address] RBC COUNT 3.21 X10E12/L Low 4.10-5.70 [facility] Comment on above: Performed By: #### KENDALL AHUJA, , 2776-06 ####[facility] ([id number])[address] [address] WBC (Bld) [#/Vol] 8.1 10*3/uL Normal 4.0-11.0 [facility] Comment on above: Performed By: #### Snehal CANALES [facility], , 2776-06 ####[facility] ([id number])[address], [address], [place] [address] Glucose Glucometer ([facility]) [M ass/Vol]on 11-13-2023 Glucose [Mass/Vol] 230 mg/dL High 65-99 [facility] Glucose [Mass/Vol] 225 mg/dL High 65-99 [facility] Glucose [Mass/Vol] 331 mg/dL High 65-99 [facility] Glucose [Mass/Vol] 190 mg/dL High 65-99 [facility] MAGNESIUMon 11-13-2023 Magnesium [Mass/Vol] 2.1 mg/dL Normal 1.8-2.6 [facility] Comment on above: Performed By: #### C ALLY, BMP, , 2777-1 ####[facility] ([id number])[address], [address] [place] [address] PHOSPHORUSon 11-13-2023 Phosphate [Mass/Vol] 3.8 mg/dL Normal 2.4-4.9 [facility] Comment on above: Performed By: #### C KENDALL CANALES, , 2777 ####[facility] ([id number])[address], [address] [place] [address] BASIC METABOLIC PANLon 11-11 Anion gap [Moles/Vol] 11 mmol/L Normal 5-15 [facility] Comment on above: Performed By: #### Snehal CANALES, BMP #### [facility] ([id number]) [address], [address] [place] [address] Calcium [Mass/Vol] 9.0 mg/dL Normal 8.5-10.5 [facility] Comment on above: Performed By: #### Snehal CANALES, BMP #### [facility] ([id number]) [address], [address] [place] [address] Chloride [Moles/Vol] 98 mmol/L Normal 98-109 [facility] Comment on above: Performed By: #### Snehal CANALES, BMP #### [facility] ([id number]) [address], [address] [place] [address] CO2 [Moles/Vol] 25 mmol/L Normal 22-32 [facility] Comment on above: Performed By: #### Snehal BC, BMP #### [facility] ([id number]) [address], [address] [place] [address] Creatinine [Mass/Vol] 1.40 mg/dL High 0.60-1.30 [facility] Comment on above: Result Comment: METH OD TRACEABLE TO IDMS STANDARD Performed By: #### C ALLY, BMP #### [facility] ([id number]) [address], [facility] [address] [place] [address] GFR/1.73 sq M.predicted among non-blacks MDRD (S/P/Bld) [Vol rate/Area] 58 mL/min/{1.73_m2} Low >59 [facility] Comment on above: Result Comment: Reported eGFR is based on the CKD-EPI 2020 equation that does not use a race coefficient. Performed By: #### Snehal CANALES, BMP #### [facility] ([id number]) [address], [address] [place] [address] Glucose [Mass/Vol] 194 mg/dL High 65-99 [facility] Comment on above: Performed By: #### Snehal CANALES, BMP #### [facility] ([id number]) [address] [address] [place] [address] Potassium [Moles/Vol] 4.0 mmol/L Normal 3.5-5.0 [facility] Comment on above: Performed By: #### Snehal CANALES, BMP #### [facility] ([id number]) [address] [address] [place] [address] Sodium [Moles/Vol] 134 mmol/L Normal 134-146 [facility] Comment on above: Performed By: #### Snehal CANALES, BMP #### [facility] ([id number]) [address] [address] [place] [address] Urea nitrogen [Mass/Vol] 23 mg/dL Normal 5-23 [facility] Comment on above: Performed By: #### Snehal CANALES, BMP #### [facility] ([id number]) [address] [place] [address] COMPLETE BLOOD COUNTon 11-11 Erythrocyte distribution width (RBC) [Ratio] 24.1 % High 11.5-15.0 [facility] Comment on above: Performed By: #### C ALLY, BMP #### [facility] ([id number]) [address], [address] [place] [address] Hematocrit (Bld) [Volume fraction] 25.8 % Low 39-49 [facility] Comment on above: Performed By: #### C ALLY, BMP #### [facility] ([id number]) [address], [address] [place] [address] Hemoglobin (Bld) [Mass/Vol] 8.6 g/dL Low 13.0-17.0 [facility] Comment on above: Performed By: #### C ALLY, BMP #### [facility] ([id number]) [address], [address] [place] [address] MCH (RBC) [Entitic mass] 25.7 pg Low 27-34 [facility] Comment on above: Performed By: #### C ALLY, BMP #### [facility] ([id number]) [address], [address] [place] [address] MCHC (RBC) [Mass/Vol] 33.5 g/dL Normal 32-36 [facility] Comment on above: Performed By: #### Snehal CANALES, BMP #### [facility] ([id number]) [address], [address] [place] [address] MCV (RBC) [Entitic vol] 77 fL Low 80-100 [facility] Comment on above: Performed By: #### C ALLY, BMP #### [facility] ([id number]) [address], [address] [place] [address] Platelet mean volume (Bld) [Entitic vol] 9.2 fL Normal 7-12 [facility] Comment on above: Performed By: #### C ALLY, BMP #### [facility] ([id number]) [address], [address] [place] [address] Platelets (Bld) [#/Vol] 185 10*3/uL Normal 150-450 [facility] Comment on above: Performed By: #### Snehal CANALES, BMP #### [facility] ([id number]) [address], [address] [place] [address] RBC COUNT 3.37 X10E12/L Low 4.10-5.70 [facility] Comment on above: Performed By: #### Snehal CANALES, BMP #### [facility] ([id number]) [address], [address] [place] [address] WBC (Bld) [#/Vol] 10.0 10*3/uL Normal 4.0-11.0 [facility] Comment on above: Performed By: #### Snehal CAANLES, BMP #### [facility] ([id number]) [address], [address] [place] [address] Glucose Glucometer (dC) [M ass/Vol]on 11-12-2023 Glucose [Mass/Vol] 230 mg/dL High 65-99 [facility] Glucose [Mass/Vol] 280 mg/dL High 65-99 [facility] Glucose [Mass/Vol] 268 mg/dL High 65-99 [facility] Glucose [Mass/Vol] 220 mg/dL High 65-99 [facility] Glucose [Mass/Vol] 205 mg/dL High 65-99 [facility] MAGNESIUMon 11-12-2023 Magnesium [Mass/Vol] 1.8 mg/dL Normal 1.8-2.6 [facility] Comment on above: Performed By: #### C ALLY, BMP #### [facility] ([id number]) [address], [address] [place] [address] PHOSPHORUSon 11-12-2023 Phosphate [Mass/Vol] 3.8 mg/dL Normal 2.4-4.9 [facility] Comment on above: Performed By: #### Snehal CANALES, BMP #### [facility] ([id number]) [address], [address] [place] [address] BASIC METABOLIC PANLon 11-10 Anion gap [Moles/Vol] 8 mmol/L Normal 5-15 [facility] Comment on above: Performed By: #### Snehal CANALES, BMP #### [facility] ([id number]) [address], [address] [place] [address] Calcium [Mass/Vol] 8.7 mg/dL Normal 8.5-10.5 [facility] Comment on above: Performed By: #### Snehal CANALES, BMP #### [facility] ([id number]) [address], [address] [place] [address] Chloride [Moles/Vol] 99 mmol/L Normal 98-109 [facility] Comment on above: Performed By: #### Snehal CANALES, BMP #### [facility] ([id number]) [address] [place] [address] CO2 [Moles/Vol] 26 mmol/L Normal 22-32 [facility] Comment on above: Performed By: #### Snehal CANALES, BMP #### [facility] ([id number]) [address], [address] [place] [address] Creatinine [Mass/Vol] 1.45 mg/dL High 0.60-1.30 [facility] Comment on above: Result Comment: METH OD TRACEABLE TO IDMS STANDARD Performed By: #### Snehal CANALES, BMP #### [facility] ([id number]) [address], [address] [place] [address] GFR/1.73 sq M.predicted among non-blacks MDRD (S/P/Bld) [Vol rate/Area] 56 mL/min/{1.73_m2} Low >59 [facility] Comment on above: Result Comment: Reported eGFR is based on the CKD-EPI 2020 equation that does not use a race coefficient. Performed By: #### C ALLY, BMP #### [facility] ([id number]) [address], [address] [place] [address] Glucose [Mass/Vol] 153 mg/dL High 65-99 [facility] Comment on above: Performed By: #### C ALLY, BMP #### [facility] ([id number]) [address], [address] [place] [address] Potassium [Moles/Vol] 3.9 mmol/L Normal 3.5-5.0 [facility] Comment on above: Performed By: #### C ALLY, BMP #### [facility] ([id number]) [address] [place] [address] Sodium [Moles/Vol] 133 mmol/L Low 134-146 [facility] Comment on above: Performed By: #### C ALLY, BMP #### [facility] ([id number]) [address], [address] [place] [address] Urea nitrogen [Mass/Vol] 27 mg/dL High 5-23 [facility] Comment on above: Performed By: #### Snehal CANALES, BMP #### [facility] ([id number]) [address], [address] [place] [address] COMPLETE BLOOD COUNTon 11-10 Erythrocyte distribution width (RBC) [Ratio] 24.2 % High 11.5-15.0 [facility] Comment on above: Performed By: #### C ALLY, BMP #### [facility] ([id number]) [address], [address] [place] [address] Hematocrit (Bld) [Volume fraction] 25.1 % Low 39-49 [facility] Comment on above: Performed By: #### Snehal CANALES, BMP #### [facility] ([id number]) [address], [address] [place] [address] Hemoglobin (Bld) [Mass/Vol] 8.2 g/dL Low 13.0-17.0 [facility] Comment on above: Performed By: #### C ALLY, BMP #### [facility] ([id number]) [address], [address] [place] [address] MCH (RBC) [Entitic mass] 25.5 pg Low 27-34 [facility] Comment on above: Performed By: #### C ALLY, BMP #### [facility] ([id number]) [address], [address] [place] [address] MCHC (RBC) [Mass/Vol] 32.7 g/dL Normal 32-36 [facility] Comment on above: Performed By: #### Snehal CANALES, BMP #### [facility] ([id number]) [address], [address] [place] [address] MCV (RBC) [Entitic vol] 78 fL Low 80-100 [facility] Comment on above: Performed By: #### Snehal CANALES, BMP #### [facility] ([id number]) [address], [address] [place] [address] Platelet mean volume (Bld) [Entitic vol] 9.0 fL Normal 7-12 [facility] Comment on above: Performed By: #### Snehal CANALES, BMP #### [facility] ([id number]) [address], [address] [place] [address] Platelets (Bld) [#/Vol] 152 10*3/uL Normal 150-450 [facility] Comment on above: Performed By: #### Snehal CANALES, BMP #### [facility] ([id number]) [address], [address] [place] [address] RBC COUNT 3.22 X10E12/L Low 4.10-5.70 [facility] Comment on above: Performed By: #### Snehal CANALES, BMP #### [facility] ([id number]) [address], [address] [place] [address] WBC (Bld) [#/Vol] 9.8 10*3/uL Normal 4.0-11.0 [facility] Comment on above: Performed By: #### Snehal CANALES, BMP #### [facility] ([id number]) [address], [address] [place] [address] Glucose Glucometer (BldC) [M ass/Vol]on 11-11-2023 Glucose [Mass/Vol] 184 mg/dL High 65-99 [facility] Glucose [Mass/Vol] 179 mg/dL High 65-99 [facility] Glucose [Mass/Vol] 222 mg/dL High 65-99 [facility] Glucose [Mass/Vol] 303 mg/dL High 65-99 [facility] MAGNESIUMon 11-11-2023 Magnesium [Mass/Vol] 2.4 mg/dL Normal 1.8-2.6 [facility] Comment on above: Performed By: #### Snehal CANALES, BMP #### [facility] ([id number]) [address], [address] [place] [address] Magnesium [Mass/Vol] 1.9 mg/dL Normal 1.8-2.6 [facility] Comment on above: Performed By: #### Snehal CANALES, BMP #### [facility] ([id number]) [address], [address] [place] [address] PHOSPHORUSon 11-11-2023 Phosphate [Mass/Vol] 3.2 mg/dL Normal 2.4-4.9 [facility] Comment on above: Performed By: #### Snehal CANALES, BMP #### [facility] ([id number]) [address], [address] [place] [address] BASIC METABOLIC PANLon 11-09 Anion gap [Moles/Vol] 6 mmol/L Normal 5-15 [facility] Comment on above: Performed By: #### C ALLY, [facility], , 2776-06 ####[facility] ([id number])[address], [address] [place] [address] Calcium [Mass/Vol] 8.5 mg/dL Normal 8.5-10.5 [facility] Comment on above: Performed By: #### C ALLY, [facility], , 2776-06 ####[facility] ([id number])[address], [address], [place] [address] Chloride [Moles/Vol] 102 mmol/L Normal 98-109 [facility] Comment on above: Performed By: #### KENDALL AHUJA, , 2776-06 ####[facility] ([id number])[address], [address] [address] CO2 [Moles/Vol] 26 mmol/L Normal 22-32 [facility] Comment on above: Performed By: #### Snehal CANALES, [facility], , 2776-06 ####[facility] ([id number])[address], [address], [place] [address] Creatinine [Mass/Vol] 1.59 mg/dL High 0.60-1.30 [facility] Comment on above: Result Comment: METH OD TRACEABLE TO IDMS STANDARD Performed By: #### Snehal CANALES, KENDALL, , 2776-06 ####[facility] ([id number])[address] [address] [address] GFR/1.73 sq M.predicted among non-blacks MDRD (S/P/Bld) [Vol rate/Area] 50 mL/min/{1.73_m2} Low >59 [facility] Comment on above: Result Comment: Reported eGFR is based on the CKD-EPI 2020 equation that does not use a race coefficient. Performed By: #### C ALLY, [facility], , 2776-06 ####[facility] ([id number])[address], [address], [place] [address] Glucose [Mass/Vol] 145 mg/dL High 65-99 [facility] Comment on above: Performed By: #### C ALLY, [facility], , 2776-06 ####[facility] ([id number])[address] [address] [place] [address] Potassium [Moles/Vol] 3.9 mmol/L Normal 3.5-5.0 [facility] Comment on above: Performed By: #### C ALLY, [facility], , 2776-06 ####[facility] ([id number])[address] [address] [place] [address] Sodium [Moles/Vol] 134 mmol/L Normal 134-146 [facility] Comment on above: Performed By: #### Snehal CANALES, [facility], , 2776-06 ####[facility] ([id number])[address] [address], [place] [address] Urea nitrogen [Mass/Vol] 23 mg/dL Normal 5-23 [facility] Comment on above: Performed By: #### C ALLY, [facility], , 2776-06 ####[facility] ([id number])[address] [address], [place] [address] COMPLETE BLOOD COUNTon 11-09 Erythrocyte distribution width (RBC) [Ratio] 24.9 % High 11.5-15.0 [facility] Comment on above: Performed By: #### C ALLY, [facility], , 2776-06 ####[facility] ([id number])[address] [address], [place] [address] Hematocrit (Bld) [Volume fraction] 24.5 % Low 39-49 [facility] Comment on above: Performed By: #### C ALLY, [facility], , 2776-06 ####[facility] ([id number])[address], [address], [place] [address] Hemoglobin (Bld) [Mass/Vol] 7.9 g/dL Low 13.0-17.0 [facility] Comment on above: Performed By: #### Snehal CANALES, BMP, , 2776-06 ####[facility] ([id number])[address], [address], [place] [address] MCH (RBC) [Entitic mass] 25.4 pg Low 27-34 [facility] Comment on above: Performed By: #### C ALLY, BMP, , 2776-06 ####[facility] ([id number])[address], [address], [place] [address] MCHC (RBC) [Mass/Vol] 32.4 g/dL Normal 32-36 [facility] Comment on above: Performed By: #### C ALLY, BMP, , 2776-06 ####[facility] ([id number])[address], [address], [place] [address] MCV (RBC) [Entitic vol] 78 fL Low 80-100 [facility] Comment on above: Performed By: #### Snehal CANALES, BMP, , 2776-06 ####[facility] ([id number])[address], [address], [place] [address] Platelet mean volume (Bld) [Entitic vol] 9.1 fL Normal 7-12 [facility] Comment on above: Performed By: #### Snehal BC, BMP, , 2776-06 ####[facility] ([id number])[address], [address], [place] [address] Platelets (Bld) [#/Vol] 142 10*3/uL Low 150-450 [facility] Comment on above: Performed By: #### C KENDALL CANALES, , 2776-06 ####[facility] ([id number])[address], [address] [place] [address] RBC COUNT 3.14 X10E12/L Low 4.10-5.70 [facility] Comment on above: Performed By: #### KENDALL AHUJA, , 2776-06 ####[facility] ([id number])[address], [address] [place] [address] WBC (Bld) [#/Vol] 9.7 10*3/uL Normal 4.0-11.0 [facility] Comment on above: Performed By: #### KENDALL AHUJA, , 2776-06 ####[facility] ([id number])[address], [address] [place] [address] Glucose Glucometer (BldC) [M ass/Vol]on 11-10-2023 Glucose [Mass/Vol] 168 mg/dL High 65-99 [facility] Glucose [Mass/Vol] 245 mg/dL High 65-99 [facility] Glucose [Mass/Vol] 155 mg/dL High 65-99 [facility] Glucose [Mass/Vol] 153 mg/dL High 65-99 [facility] MAGNESIUMon 11-10-2023 Magnesium [Mass/Vol] 2.2 mg/dL Normal 1.8-2.6 [facility] Comment on above: Performed By: #### Snehal CANALES BMP #### [facility] ([id number]) [address], [address] [place] [address] Magnesium [Mass/Vol] 1.8 mg/dL Normal 1.8-2.6 [facility] Comment on above: Performed By: #### KENDALL AHUJA, , 2777-1 ####[facility] ([id number])[address], [address], [place] [address] PHOSPHORUSon 11-10-2023 Phosphate [Mass/Vol] 3.1 mg/dL Normal 2.4-4.9 [facility] Comment on above: Performed By: #### Snehal BC, BMP, , 2776- ####[facility] ([id number])[address], [address], [place] [address] BASIC METABOLIC PANLon 11-08 Anion gap [Moles/Vol] 9 mmol/L Normal 5-15 [facility] Comment on above: Performed By: #### Snehal CANALES, 2639-3, BMP, 2156-, , 2776-1 ####[facility] ([id number])[address], [address], [place] [address] Calcium [Mass/Vol] 8.4 mg/dL Low 8.5-10.5 [facility] Comment on above: Performed By: #### Snehal CANALES, 2639-3, BMP, 2156-, , 2776- ####[facility] ([id number])[address], [address], [place] [address] Chloride [Moles/Vol] 104 mmol/L Normal 98-109 [facility] Comment on above: Performed By: #### Snehal CANALES, 2639-3, BMP, 2156-6, , 2776- ####[facility] ([id number])[address], [address], [place] [address] CO2 [Moles/Vol] 25 mmol/L Normal 22-32 [facility] Comment on above: Performed By: #### Snehal BC, 2639-3, BMP, 2156-6, , 2776-1 ####[facility] ([id number])[address], [address], [place] [address] Creatinine [Mass/Vol] 1.35 mg/dL High 0.60-1.30 [facility] Comment on above: Result Comment: METH OD TRACEABLE TO IDMS STANDARD Performed By: #### C ALYL, 2639-3, BMP, 2157-6, 11526-7, 2776-06 ####[facility] ([id number])[address] [address] GFR/1.73 sq M.predicted among non-blacks MDRD (S/P/Bld) [Vol rate/Area] 61 mL/min/{1.73_m2} Normal >59 [facility] Comment on above: Result Comment: Reported eGFR is based on the CKD-EPI 2020 equation that does not use a race coefficient. Performed By: #### C ALLY, 2639-3, BMP, 2156-6, , 2776-06 ####[facility] ([id number])[address], [address] [place] [address] Glucose [Mass/Vol] 217 mg/dL High 65-99 [facility] Comment on above: Performed By: #### Snehal ACNALES, 2639-3, BMP, 2156-, , 2776-06 ####[facility] ([id number])[address] [address] Potassium [Moles/Vol] 4.2 mmol/L Normal 3.5-5.0 [facility] Comment on above: Performed By: #### Snehal CANALES, 2639-3, BMP, 2156-6, , 2776- ####[facility] ([id number])[address] [address] Sodium [Moles/Vol] 138 mmol/L Normal 134-146 [facility] Comment on above: Performed By: #### Snehal CANALES, 2639-3, BMP, 215-6, , 2776- ####[facility] ([id number])[address] [address], [place] [address] Urea nitrogen [Mass/Vol] 23 mg/dL Normal 5-23 [facility] Comment on above: Performed By: #### C BC, 2639-3, BMP, 2156-11, , 1 ####[facility] ([id number])[address], [place] [address] CK [Catalytic activity/Vol]o n 11-09-2023 CPK 44 U/L Normal 24-195 [facility] Comment on above: Performed By: #### 2 157-6, 2638-3 ####[facility] ([id number])[address] [address] [place] [address] CPK 30 U/L Normal 24-195 [facility] Comment on above: Performed By: #### C BC, 2638-3, BMP, 2156-11, , 2776-06 ####[facility] ([id number])[address] [address] COMPLETE BLOOD COUNTon 11-08 Erythrocyte distribution width (RBC) [Ratio] 24.9 % High 11.5-15.0 [facility] Comment on above: Performed By: #### C BC, 9-3, BMP, 2156-11, , 2776-06 ####[facility] ([id number])[address] [place] [address] Hematocrit (Bld) [Volume fraction] 26.8 % Low 39-49 [facility] Comment on above: Performed By: #### C BC, 2639-3, BMP, 2156-, , 1 ####[facility] ([id number])[address] [address] [place] [address] Hemoglobin (Bld) [Mass/Vol] 8.7 g/dL Low 13.0-17.0 [facility] Comment on above: Performed By: #### Snehal CANALES, 2639-3, BMP, 2156-11, , 2776-06 ####[facility] ([id number])[address] [address] MCH (RBC) [Entitic mass] 24.8 pg Low 27-34 [facility] Comment on above: Performed By: #### Snehal CANALES, 2639-3, BMP, 2156-11, , 2776-06 ####[facility] ([id number])[address] [address] MCHC (RBC) [Mass/Vol] 32.6 g/dL Normal 32-36 [facility] Comment on above: Performed By: #### Snehal CANALES, 2639-3, BMP, 2156-11, , 2776-06 ####[facility] ([id number])[address] [address] MCV (RBC) [Entitic vol] 76 fL Low 80-100 [facility] Comment on above: Performed By: #### Snehal CANALES, 2639-3, BMP, 2156-11, , 2776-06 ####[facility] ([id number])[address] [address] Platelet mean volume (Bld) [Entitic vol] 9.3 fL Normal 7-12 [facility] Comment on above: Performed By: #### Snehal CANALES, 2639-3, BMP, 2156-11, , 2776-06 ####[facility] ([id number])[address], [address] [place] [address] Platelets (Bld) [#/Vol] 184 10*3/uL Normal 150-450 [facility] Comment on above: Performed By: #### C BC, 2639-3, [facility], 2156-11, , 1 ####[facility] ([id number])[address], [address] [place] [address] RBC COUNT 3.53 X10E12/L Low 4.10-5.70 [facility] Comment on above: Performed By: #### C BC, 2639-3, [facility], 2156-11, , 2776- ####[facility] ([id number])[address], [address] [place] [address] WBC (Bld) [#/Vol] 11.0 10*3/uL Normal 4.0-11.0 [facility] Comment on above: Performed By: #### C BC, 2639-3, [facility], 2156-11, , 2776-06 ####[facility] ([id number])[address] [place] [address] Glucose Glucometer (BldC) [M ass/Vol]on 11-09-2023 Glucose [Mass/Vol] 243 mg/dL High 65-99 [facility] Glucose [Mass/Vol] 184 mg/dL High 65-99 [facility] Glucose [Mass/Vol] 199 mg/dL High 65-99 [facility] Glucose [Mass/Vol] 218 mg/dL High 65-99 [facility] Heparin unfractionated Chrom ogenic method Qn (PPP)on 11-09-2023 ANTI XA UFH 0.15 IU/mL Low 0.30-0.70 [facility] Comment on above: Result Comment: Opti mal time for testing is 6 hrs post dosage This test is specific for monitoring patients on UFH, and is not recommended for use with other Anti-Xa medications. Performed By: #### 3 274-8 ####[facility] ([id number])[address], [address], [place] [address] MAGNESIUMon 11-09-2023 Magnesium [Mass/Vol] 2.2 mg/dL Normal 1.8-2.6 [facility] Comment on above: Performed By: #### C BC, 2639-3, BMP, 2156-11, , 7-1 ####[facility] ([id number])[address] [place] [address] Myoglobin [Mass/Vol]on 11-08 SERUM MYOGLOBIN 97.7 ng/mL Normal 17.4-105.7 [facility] Comment on above: Performed By: #### 2 157-6, 2638-3 ####[facility] ([id number])[address], [place] [address] SERUM MYOGLOBIN 51.7 ng/mL Normal 17.4-105.7 [facility] Comment on above: Performed By: #### C BC, 2639-3, BMP, 2156-11, , 1 ####[facility] ([id number])[address], [address] [place] [address] PHOSPHORUSon 11-09-2023 Phosphate [Mass/Vol] 4.4 mg/dL Normal 2.4-4.9 [facility] Comment on above: Performed By: #### C BC, 2639-3, BMP, 2156-11, , 2777-1 ####[facility] ([id number])[address], [address], [place] [address] BASIC METABOLIC PANLon 11-07 Anion gap [Moles/Vol] 9 mmol/L Normal 5-15 [facility] Comment on above: Performed By: #### P INR #### [facility] ([id number]) [address], [address] [place] [address] Calcium [Mass/Vol] 8.4 mg/dL Low 8.5-10.5 [facility] Comment on above: Performed By: #### P INR #### [facility] ([id number]) [address], [address] [place] [address] Chloride [Moles/Vol] 106 mmol/L Normal 98-109 [facility] Comment on above: Performed By: #### P INR #### [facility] ([id number]) [address] [place] [address] CO2 [Moles/Vol] 24 mmol/L Normal 22-32 [facility] Comment on above: Performed By: #### P INR #### [facility] ([id number]) [address] [place] [address] Creatinine [Mass/Vol] 1.30 mg/dL Normal 0.60-1.30 [facility] Comment on above: Result Comment: METH OD TRACEABLE TO IDMS STANDARD Performed By: #### P INR #### [facility] ([id number]) [address] [place] [address] GFR/1.73 sq M.predicted among non-blacks MDRD (S/P/Bld) [Vol rate/Area] 64 mL/min/{1.73_m2} Normal >59 [facility] Comment on above: Result Comment: Reported eGFR is based on the CKD-EPI 2020 equation that does not use a race coefficient. Performed By: #### P INR #### [facility] ([id number]) [address] [place] [address] Glucose [Mass/Vol] 163 mg/dL High 65-99 [facility] Comment on above: Performed By: #### P INR #### [facility] ([id number]) [address] [place] [address] Potassium [Moles/Vol] 4.1 mmol/L Normal 3.5-5.0 [facility] Comment on above: Performed By: #### P INR #### [facility] ([id number]) [address] [place] [address] Sodium [Moles/Vol] 139 mmol/L Normal 134-146 [facility] Comment on above: Performed By: #### P INR #### [facility] ([id number]) [address] [place] [address] Urea nitrogen [Mass/Vol] 23 mg/dL Normal 5-23 [facility] Comment on above: Performed By: #### P INR #### [facility] ([id number]) [address] [place] [address] Anion gap [Moles/Vol] 9 mmol/L Normal 5-15 [facility] Comment on above: Performed By: #### C BC, BMP #### [facility] ([id number]) [address] [place] [address] Calcium [Mass/Vol] 8.8 mg/dL Normal 8.5-10.5 [facility] Comment on above: Performed By: #### C BC, BMP #### [facility] ([id number]) [address] [place] [address] Chloride [Moles/Vol] 104 mmol/L Normal 98-109 [facility] Comment on above: Performed By: #### C BC, BMP #### [facility] ([id number]) [address] [place] [address] CO2 [Moles/Vol] 25 mmol/L Normal 22-32 [facility] Comment on above: Performed By: #### C BC, BMP #### [facility] ([id number]) [address] [place] [address] Creatinine [Mass/Vol] 1.70 mg/dL High 0.60-1.30 [facility] Comment on above: Result Comment: METH OD TRACEABLE TO IDMS STANDARD Performed By: #### C ALLY, BMP #### [facility] ([id number]) [address] [place] [address] GFR/1.73 sq M.predicted among non-blacks MDRD (S/P/Bld) [Vol rate/Area] 46 mL/min/{1.73_m2} Low >59 [facility] Comment on above: Result Comment: Reported eGFR is based on the CKD-EPI 2020 equation that does not use a race coefficient. Performed By: #### C ALLY, BMP #### [facility] ([id number]) [address] [place] [address] Glucose [Mass/Vol] 111 mg/dL High 65-99 [facility] Comment on above: Performed By: #### Snehal CANALES, BMP #### [facility] ([id number]) [address] [place] [address] Potassium [Moles/Vol] 3.8 mmol/L Normal 3.5-5.0 [facility] Comment on above: Performed By: #### Snehal CANALES, BMP #### [facility] ([id number]) [address] [place] [address] Sodium [Moles/Vol] 138 mmol/L Normal 134-146 [facility] Comment on above: Performed By: #### Snehal CANALES, BMP #### [facility] ([id number]) [address], [address] [place] [address] Urea nitrogen [Mass/Vol] 28 mg/dL High 5-23 [facility] Comment on above: Performed By: #### Senhal CANALES, BMP #### [facility] ([id number]) [address], [address] [place] [address] CK [Catalytic activity/Vol]o n 11-08-2023 CPK 26 U/L Normal 24-195 [facility] Comment on above: Performed By: #### P INR #### [facility] ([id number]) [address] [address] [place] [address] COMPLETE BLOOD COUNTon 11-07 Erythrocyte distribution width (RBC) [Ratio] 24.8 % High 11.5-15.0 [facility] Comment on above: Performed By: #### P INR #### [facility] ([id number]) [address], [address] [place] [address] Hematocrit (Bld) [Volume fraction] 29.3 % Low 39-49 [facility] Comment on above: Performed By: #### P INR #### [facility] ([id number]) [address] [place] [address] Hemoglobin (Bld) [Mass/Vol] 9.6 g/dL Low 13.0-17.0 [facility] Comment on above: Performed By: #### P INR #### [facility] ([id number]) [address], [address] [place] [address] MCH (RBC) [Entitic mass] 24.9 pg Low 27-34 [facility] Comment on above: Performed By: #### P INR #### [facility] ([id number]) [address], [address] [place] [address] MCHC (RBC) [Mass/Vol] 32.7 g/dL Normal 32-36 [facility] Comment on above: Performed By: #### P INR #### [facility] ([id number]) [address], [address] [place] [address] MCV (RBC) [Entitic vol] 76 fL Low 80-100 [facility] Comment on above: Performed By: #### P INR #### [facility] ([id number]) [address], [address] [place] [address] Platelet mean volume (Bld) [Entitic vol] 8.7 fL Normal 7-12 [facility] Comment on above: Performed By: #### P INR #### [facility] ([id number]) [address], [address] [place] [address] Platelets (Bld) [#/Vol] 169 10*3/uL Normal 150-450 [facility] Comment on above: Performed By: #### P INR #### [facility] ([id number]) [address], [address] [place] [address] RBC COUNT 3.85 X10E12/L Low 4.10-5.70 [facility] Comment on above: Performed By: #### P INR #### [facility] ([id number]) [address], [address] [place] [address] WBC (Bld) [#/Vol] 13.5 10*3/uL High 4.0-11.0 [facility] Comment on above: Performed By: #### P INR #### [facility] ([id number]) [address], [address] [place] [address] Erythrocyte distribution width (RBC) [Ratio] 25.2 % High 11.5-15.0 [facility] Comment on above: Performed By: #### C BC, BMP #### [facility] ([id number]) [address], [address] [place] [address] Hematocrit (Bld) [Volume fraction] 33.0 % Low 39-49 [facility] Comment on above: Performed By: #### C BC, BMP #### [facility] ([id number]) [address] [address] [place] [address] Hemoglobin (Bld) [Mass/Vol] 10.8 g/dL Low 13.0-17.0 [facility] Comment on above: Performed By: #### C BC, BMP #### [facility] ([id number]) [address], [address] [place] [address] MCH (RBC) [Entitic mass] 25.0 pg Low 27-34 [facility] Comment on above: Performed By: #### C ALLY, BMP #### [facility] ([id number]) [address], [address] [place] [address] MCHC (RBC) [Mass/Vol] 32.8 g/dL Normal 32-36 [facility] Comment on above: Performed By: #### C ALLY, BMP #### [facility] ([id number]) [address], [address] [place] [address] MCV (RBC) [Entitic vol] 76 fL Low 80-100 [facility] Comment on above: Performed By: #### Snehal CANALES, BMP #### [facility] ([id number]) [address], [address] [place] [address] Platelet mean volume (Bld) [Entitic vol] 8.8 fL Normal 7-12 [facility] Comment on above: Performed By: #### Snehal CANALES, BMP #### [facility] ([id number]) [address], [address] [place] [address] Platelets (Bld) [#/Vol] 172 10*3/uL Normal 150-450 [facility] Comment on above: Performed By: #### Snehal CANALES, BMP #### [facility] ([id number]) [address], [address] [place] [address] RBC COUNT 4.33 X10E12/L Normal 4.10-5.70 [facility] Comment on above: Performed By: #### Snehal CANALES, BMP #### [facility] ([id number]) [address], [address] [place] [address] WBC (Bld) [#/Vol] 9.3 10*3/uL Normal 4.0-11.0 [facility] Comment on above: Performed By: #### C BC, BMP #### [facility] ([id number]) [address], [address] [place] [address] Glucose Glucometer (BldC) [M ass/Vol]on 11-08-2023 Glucose [Mass/Vol] 162 mg/dL High 65-99 [facility] Glucose [Mass/Vol] 96 mg/dL Normal 65-99 [facility] Glucose [Mass/Vol] 142 mg/dL High 65-99 [facility] Glucose [Mass/Vol] 114 mg/dL High 65-99 [facility] Lactate (P ekaterina) [Moles/Vol]o n 11-08-2023 LACTATE W/REFLEX 1.0 mmol/L Normal 0.4-2.0 [facility] Comment on above: Result Comment: Result did not trigger repeat Lactate, re-order if needed. Performed By: #### P INR #### [facility] ([id number]) [address], [address] [place] [address] MAGNESIUMon 11-08-2023 Magnesium [Mass/Vol] 1.7 mg/dL Low 1.8-2.6 [facility] Comment on above: Performed By: #### P INR #### [facility] ([id number]) [address], [address] [place] [address] Myoglobin [Mass/Vol]on 11-07 SERUM MYOGLOBIN 33.1 ng/mL Normal 17.4-105.7 [facility] Comment on above: Performed By: #### P INR #### [facility] ([id number]) [address], [address] [place] [address] PHOSPHORUSon 11-08-2023 Phosphate [Mass/Vol] 4.0 mg/dL Normal 2.4-4.9 [facility] Comment on above: Performed By: #### P INR #### [facility] ([id number]) [address], [address] [place] [address] PROTIME AND INRon 11-08-2023 INR Coag (PPP) [Relative time] 1.3 {INR} High 0.8-1.1 [facility] Comment on above: Performed By: #### P INR #### [facility] ([id number]) [address], [address] [place] [address] PT Coag (PPP) [Time] 14.7 s High 9.8-13.2 [facility] Comment on above: Performed By: #### P INR #### [facility] ([id number]) [address], [address] [place] [address] RAPID CARDIACon 11-08-2023 [facility]NEY'S TEST Normal [facility] Comment on above: Performed By: #### A FAB5 #### [facility] ([id number]) [address] [place] [address] Base excess Calc (Bld) [Moles/Vol] 0.1 mmol/L Normal 0.0-2.0 [facility] Comment on above: Performed By: #### A FAB5 #### [facility] ([id number]) [address] [place] [address] Body temperature 98.6 [degF] Normal 37.0 [facility] Comment on above: Performed By: #### A FAB5 #### [facility] ([id number]) [address] [place] [address] Glucose [Mass/Vol] 117 mg/dL High 65-99 [facility] Comment on above: Performed By: #### A FAB5 #### [facility] ([id number]) [address] [place] [address] HCO3 (Bld) [Moles/Vol] 24.8 mmol/L Normal 22-26 P [facility] Comment on above: Performed By: #### A FAB5 #### [facility] ([id number]) [address] [place] [address] Hematocrit (Bld) [Volume fraction] 31 % Low 39-49 [facility] Comment on above: Performed By: #### A FAB5 #### [facility] ([id number]) [address] [place] [address] Hemoglobin (Bld) [Mass/Vol] 10.2 g/dL Low 13.0-17.0 [facility] Comment on above: Performed By: #### A FAB5 #### [facility] ([id number]) [address] [place] [address] INSP. O2 CONC. 100 % Normal [facility] Comment on above: Performed By: #### A FAB5 #### [facility] ([id number]) [address] [place] [address] IONIZED CALCIUM 4.8 mg/dL Normal 4.5-5.3 [facility] Comment on above: Performed By: #### A FAB5 #### [facility] ([id number]) [address] [place] [address] Oxygen (Bld) [Partial pressure] 167 mm[Hg] High 80-100 [facility] Comment on above: Performed By: #### A FAB5 #### [facility] ([id number]) [address] [place] [address] Oxygen saturation in Blood 100.8 % Normal >90 [facility] Comment on above: Performed By: #### A FAB5 #### [facility] ([id number]) [address] [place] [address] PCO2 39.7 MMHG Normal 35-45 [facility] Comment on above: Performed By: #### A FAB5 #### [facility] ([id number]) [address] [place] [address] pH (Bld) 7.404 [pH] Normal 7.350-7.45 0 [facility] Comment on above: Performed By: #### A FAB5 #### [facility] ([id number]) [address] [place] [address] Potassium [Moles/Vol] 3.8 mmol/L Normal 3.5-5.0 [facility] Comment on above: Performed By: #### A FAB5 #### [facility] ([id number]) [address] [place] [address] SAMPLE SITE KECIA Normal [facility] Comment on above: Performed By: #### A FAB5 #### [facility] ([id number]) [address] [place] [address] SAMPLE TYPE Arterial Normal [facility] Comment on above: Performed By: #### A FAB5 #### [facility] ([id number]) [address] [place] [address] RAPID CARDIAC W/ NAon 2023 COURTNEY'S TEST Normal [facility] Comment on above: Performed By: #### P INR #### [facility] ([id number]) [address] [place] [address] Base excess Calc (Bld) [Moles/Vol] 0.2 mmol/L Normal 0.0-2.0 [facility] Comment on above: Performed By: #### P INR #### [facility] ([id number]) [address] [place] [address] Body temperature 98.6 [degF] Normal 37.0 [facility] Comment on above: Performed By: #### P INR #### [facility] ([id number]) [address], [address] [place] [address] Glucose [Mass/Vol] 125 mg/dL High 65-99 [facility] Comment on above: Performed By: #### P INR #### [facility] ([id number]) [address] [place] [address] HCO3 (Bld) [Moles/Vol] 25.3 mmol/L Normal 22-26 [facility] Comment on above: Performed By: #### P INR #### [facility] ([id number]) [address], [address] [place] [address] Hematocrit (Bld) [Volume fraction] 31 % Low 39-49 [facility] Comment on above: Performed By: #### P INR #### [facility] ([id number]) [address], [address] [place] [address] Hemoglobin (Bld) [Mass/Vol] 10.0 g/dL Low 13.0-17.0 [facility] Comment on above: Performed By: #### P INR #### [facility] ([id number]) [address], [address] [place] [address] INSP. O2 CONC. 50 % Normal [facility] Comment on above: Performed By: #### P INR #### [facility] ([id number]) [address], [address] [place] [address] IONIZED CALCIUM 4.7 mg/dL Normal 4.5-5.3 [facility] Comment on above: Performed By: #### P INR #### [facility] ([id number]) [address], [address] [place] [address] Oxygen (Bld) [Partial pressure] 131 mm[Hg] High 80-100 [facility] Comment on above: Performed By: #### P INR #### [facility] ([id number]) [address], [address] [place] [address] Oxygen saturation in Blood 99.9 % Normal >90 [facility] Comment on above: Performed By: #### P INR #### [facility] ([id number]) [address], [address] [place] [address] PCO2 42.7 MMHG Normal 35-45 [facility] Comment on above: Performed By: #### P INR #### [facility] ([id number]) [address] [place] [address] pH (Bld) 7.381 [pH] Normal 7.350-7.45 0 [facility] Comment on above: Performed By: #### P INR #### [facility] ([id number]) [address] [place] [address] Potassium [Moles/Vol] 3.7 mmol/L Normal 3.5-5.0 [facility] Comment on above: Performed By: #### P INR #### [facility] ([id number]) [address], [address] [place] [address] SAMPLE SITE KECIA Normal [facility] Comment on above: Performed By: #### P INR #### [facility] ([id number]) [address] [place] [address] SAMPLE TYPE Arterial Normal [facility] Comment on above: Performed By: #### P INR #### [facility] ([id number]) [address] [place] [address] Sodium [Moles/Vol] 139 mmol/L Normal 134-146 [facility] Comment on above: Performed By: #### P INR #### [facility] ([id number]) [address], [address] [place] [address] aPTT Coag (PPP) [Time]on aPTT Coag (Bld) [Time] 30 s Normal 26-37 [facility] Comment on above: Performed By: #### P INR #### [facility] ([id number]) [address] [facility] [place] [address] Glucose Glucometer (BldC) [M ass/Vol]on 11-07-2023 Glucose [Mass/Vol] 150 mg/dL High 65-99 [facility] Glucose [Mass/Vol] 58 mg/dL Low 65-99 [facility] POC [id number] 11-07-2023 Chloride [Moles/Vol] 98 mmol/L Normal 98-109 [facility] Comment on above: Performed By: #### I [facility] #### [facility] ([id number]) [address] [place] [address] CO2 [Moles/Vol] 31 mmol/L Normal 22-32 [facility] Comment on above: Performed By: #### I [facility] #### [facility] ([id number]) [address] [place] [address] Creatinine [Mass/Vol] 1.9 mg/dL High 0.7-1.2 [facility] Comment on above: Result Comment: METH OD TRACEABLE TO IDMS STANDARD Performed By: #### I [facility] #### [facility] ([id number]) [address] [place] [address] GFR/1.73 sq M.predicted among non-blacks MDRD (S/P/Bld) [Vol rate/Area] 40 mL/min/{1.73_m2} Low >59 [facility] Comment on above: Result Comment: Reported eGFR is based on the CKD-EPI 2020 equation that does not use a race coefficient. Performed By: #### I [facility] #### [facility] ([id number]) [address] [place] [address] Glucose [Mass/Vol] 72 mg/dL Normal 65-99 [facility] Comment on above: Performed By: #### I [facility] #### [facility] ([id number]) [address] [place] [address] Potassium [Moles/Vol] 3.6 mmol/L Normal 3.5-5.0 [facility] Comment on above: Performed By: #### I [facility] #### [facility] ([id number]) [address] [place] [address] Sodium [Moles/Vol] 139 mmol/L Normal 134-146 [facility] Comment on above: Performed By: #### I [facility] #### [facility] ([id number]) [address] [place] [address] Urea nitrogen [Mass/Vol] 31 mg/dL High 6-23 [facility] Comment on above: Performed By: #### I [facility] #### [facility] ([id number]) [address] [place] [address] PROTIME AND INRon 11-07-2023 INR Coag (PPP) [Relative time] 1.3 {INR} High 0.8-1.1 [facility] Comment on above: Performed By: #### P INR #### [facility] ([id number]) [address] [facility], [address] [place] [address] PT Coag (PPP) [Time] 14.5 s High 9.8-13.2 [facility] Comment on above: Performed By: #### P INR #### [facility] ([id number]) [address] [facility], [address] [place] [address] ECG 12 Leadon 10-24-2023 [facility] Work Phone: Consent for Treatmenton 10-04 Consent for Treatment [id number]#1.00TIFF Normal [facility] Heart and Vascular Office/Cl inic [...] 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 Normal [facility] Comment on above: Result Comment: [...] MD Transcribed by: HASEEB Technologist: TARAN [place] [facility] CHEMISTRYOrdered By: SYSTEM SYSTEM on [...] 370 Contrast amount in ml's: 150 Normal [facility] Consent for Treatmenton 10-03 Consent for Treatment [id number]#1.00TIFF Normal [facility] Creatinineon 10-19-2023 Creatinine [Mass/Vol] 1.6 mg/dL High 0.5-1.3 [facility] Comment on above: Performed By: #### 2 [id number] #### [facility] [address] [place] [address] Physician Orderon 10-19-2023 Physician Order [id number]#1.00TIFF Normal [facility] eGFRon 10-19-2023 eGFR 50 mL/min/1.73 m2 Low >=59 [facility] Comment on above: Order Comment: Order added by Discern Expert. Performed By: #### 1 [id number] #### [facility] [address] [place] [address] Outside Progress Noteon 10-03 Outside Progress Note [id number]#1.00TIFF Normal [facility] Physician Orderon 10-18-2023 Physician Order [id number]#1.00TIF F Normal [facility] Physician Order [id number]#1.00TIFF Normal [facility] Basophils Auto (Bld) [#/Vol] on [...] 10-06-2023 Albumin [Mass/Vol] 2.1 g/dL Low 3.4-5.0 [facility] ALP [Catalytic activity/Vol] 133 U/L High 46-116 [facility] ALT [Catalytic activity/Vol] 18 U/L 16-63 [facility] AST [Catalytic activity/Vol] 20 U/L 15-37 [facility] Bilirubin [Mass/Vol] 0.3 mg/dL 0.2-1.0 [facility] Calcium [Mass/Vol] 9.4 mg/dL 8.5-10.1 [facility] Chloride [Moles/Vol] 103 mmol/L 98-107 [facility] CO2 [Moles/Vol] 23.7 mmol/L 21.0-32.0 [facility] Creatinine [Mass/Vol] 1.67 mg/dL High 0.70-1.30 [facility] GFR/1.73 sq M.predicted MDRD (S/P/Bld) [Vol rate/Area] 52 mL/min/{1.73_m2} Low >=60 [facility] Glucose [Mass/Vol] 91 mg/dL 74-106 [facility] Magnesium [Mass/Vol] 1.6 mg/dL Low 1.8-2.4 [facility] Potassium [Moles/Vol] 4.8 mmol/L 3.5-5.1 [facility] Protein [Mass/Vol] 6.4 g/dL 6.4-8.2 [facility] Sodium [Moles/Vol] 136 mmol/L 136-145 [facility] Urea nitrogen [Mass/Vol] 29.0 mg/dL High 7.0-18.0 [facility] Urea nitrogen/Creatinine [Mass ratio] 17.4 mg/mg [facility] Laboratory - Hematology and Cell countson 10-06-2023 ESR (Bld) [Velocity] mm/h High <=20 [facility] Immature granulocytes/100 WBC (Bld) 1.5 % High [...] MCHC (RBC) [Mass/Vol] 29.7 g/dL Low 29.9-35.2 [facility] MCV Auto (RBC) [Entitic vol] on [...] Eosinophils # (Auto) 0.2 10 3/uL 0.0-0.7 [facility] Immature Granulocyte # (Auto) 0.17 10 [...] (Bld) [#/Vol] 3.73 10 6/uL Low 4.70-6.10 [facility] Serum or plasma albumin/glob ulin mass ratioon 10-06-2023 Albumin/Globulin [Mass ratio] 0.5 {ratio} [facility] Serum or plasma anion gap de terminationon 10-06-2023 Anion gap [Moles/Vol] 14.1 mmol/L [facility] Basophils Auto (Bld) [#/Vol] on 10-05-2023 [...] 10-05-2023 Albumin [Mass/Vol] 2.2 g/dL Low 3.4-5.0 [facility] ALP [Catalytic activity/Vol] 140 U/L High 46-116 [facility] ALT [Catalytic activity/Vol] 18 U/L 16-63 [facility] AST [Catalytic activity/Vol] 22 U/L 15-37 [facility] Bilirubin [Mass/Vol] 0.5 mg/dL 0.2-1.0 [facility] Calcium [Mass/Vol] 9.2 mg/dL 8.5-10.1 [facility] Chloride [Moles/Vol] 100 mmol/L 98-107 [facility] CO2 [Moles/Vol] 22.6 mmol/L 21.0-32.0 [facility] Creatinine [Mass/Vol] 1.74 mg/dL High 0.70-1.30 [facility] GFR/1.73 sq M.predicted MDRD (S/P/Bld) [Vol rate/Area] 49 mL/min/{1.73_m2} Low >=60 [facility] Glucose [Mass/Vol] 162 mg/dL High 74-106 [facility] Magnesium [Mass/Vol] 1.7 mg/dL Low 1.8-2.4 [facility] Potassium [Moles/Vol] 5.3 mmol/L High 3.5-5.1 [facility] Protein [Mass/Vol] 6.9 g/dL 6.4-8.2 [facility] Sodium [Moles/Vol] 133 mmol/L Low 136-145 [facility] Urea nitrogen [Mass/Vol] 30.0 mg/dL High 7.0-18.0 [facility] Urea nitrogen/Creatinine [Mass ratio] 17.2 mg/mg [facility] Laboratory - Hematology and Cell countson 10-05-2023 ESR (Bld) [Velocity] 130 mm/h High <=20 [facility] Immature granulocytes/100 WBC (Bld) 1.3 % High [...] 10-05-2023 MCHC (RBC) [Mass/Vol] 30.1 g/dL 29.9-35.2 [facility] MCV Auto (RBC) [Entitic vol] on [...] Eosinophils # (Auto) 0.4 10 3/uL 0.0-0.7 [facility] Immature Granulocyte # (Auto) 0.16 10 [...] (Bld) [#/Vol] 3.97 10 6/uL Low 4.70-6.10 [facility] Serum or plasma albumin/glob ulin mass ratioon 10-05-2023 Albumin/Globulin [Mass ratio] 0.5 {ratio} [facility] Serum or plasma anion gap de terminationon 10-05-2023 Anion gap [Moles/Vol] 15.7 mmol/L [facility] Basophils Auto (Bld) [#/Vol] on 10-04-2023 Basophils [...] 10-04-2023 Albumin [Mass/Vol] 1.9 g/dL Low 3.4-5.0 [facility] ALP [Catalytic activity/Vol] 135 U/L High 46-116 [facility] ALT [Catalytic activity/Vol] 16 U/L 16-63 [facility] AST [Catalytic activity/Vol] 19 U/L 15-37 [facility] Bilirubin [Mass/Vol] 0.4 mg/dL 0.2-1.0 [facility] Calcium [Mass/Vol] 7.8 mg/dL Low 8.5-10.1 [facility] Chloride [Moles/Vol] 102 mmol/L 98-107 [facility] CO2 [Moles/Vol] 25.0 mmol/L 21.0-32.0 [facility] Creatinine [Mass/Vol] 1.61 mg/dL High 0.70-1.30 [facility] GFR/1.73 sq M.predicted MDRD (S/P/Bld) [Vol rate/Area] 54 mL/min/{1.73_m2} Low >=60 [facility] Glucose [Mass/Vol] 136 mg/dL High 74-106 [facility] Magnesium [Mass/Vol] 1.7 mg/dL Low 1.8-2.4 [facility] Potassium [Moles/Vol] 5.1 mmol/L 3.5-5.1 [facility] Protein [Mass/Vol] 6.2 g/dL Low 6.4-8.2 [facility] Sodium [Moles/Vol] 134 mmol/L Low 136-145 [facility] Urea nitrogen [Mass/Vol] 25.0 mg/dL High 7.0-18.0 [facility] Urea nitrogen/Creatinine [Mass ratio] 15.5 mg/mg [facility] Laboratory - Hematology and Cell countson 10-04-2023 ESR (Bld) [Velocity] 117 mm/h High <=20 [facility] Immature granulocytes/100 WBC (Bld) 0.9 % High [...] MCHC (RBC) [Mass/Vol] 29.5 g/dL Low 29.9-35.2 [facility] MCV Auto (RBC) [Entitic vol] on [...] Eosinophils # (Auto) 0.4 10 3/uL 0.0-0.7 [facility] Immature Granulocyte # (Auto) 0.10 10 [...] (Bld) [#/Vol] 3.53 10 6/uL Low 4.70-6.10 [facility] Serum or plasma albumin/glob ulin mass ratioon 10-04-2023 Albumin/Globulin [Mass ratio] 0.4 {ratio} [facility] Serum or plasma anion gap de terminationon 10-04-2023 Anion gap [Moles/Vol] 12.1 mmol/L Fi [facility] Basophils Auto (Bld) [#/Vol] on 10-03-2023 [...] 10-03-2023 Albumin [Mass/Vol] 1.9 g/dL Low 3.4-5.0 [facility] ALP [Catalytic activity/Vol] 140 U/L High 46-116 [facility] ALT [Catalytic activity/Vol] 17 U/L 16-63 [facility] AST [Catalytic activity/Vol] 21 U/L 15-37 [facility] Bilirubin [Mass/Vol] 0.3 mg/dL 0.2-1.0 [facility] Calcium [Mass/Vol] 6.7 mg/dL Low 8.5-10.1 [facility] Chloride [Moles/Vol] 101 mmol/L 98-107 [facility] CO2 [Moles/Vol] 23.9 mmol/L 21.0-32.0 [facility] Creatinine [Mass/Vol] 1.57 mg/dL High 0.70-1.30 [facility] GFR/1.73 sq M.predicted MDRD (S/P/Bld) [Vol rate/Area] 55 mL/min/{1.73_m2} Low >=60 [facility] Glucose [Mass/Vol] 142 mg/dL High 74-106 [facility] Magnesium [Mass/Vol] 1.3 mg/dL Low 1.8-2.4 [facility] Potassium [Moles/Vol] 4.8 mmol/L 3.5-5.1 [facility] Protein [Mass/Vol] 6.0 g/dL Low 6.4-8.2 [facility] Sodium [Moles/Vol] 134 mmol/L Low 136-145 [facility] Urea nitrogen [Mass/Vol] 23.0 mg/dL High 7.0-18.0 [facility] Urea nitrogen/Creatinine [Mass ratio] 14.6 mg/mg [facility] Laboratory - Hematology and Cell countson 10-03-2023 ESR (Bld) [Velocity] mm/h High <=20 [facility] Immature granulocytes/100 WBC (Bld) 1.0 % High [...] 10-03-2023 MCHC (RBC) [Mass/Vol] 30.7 g/dL 29.9-35.2 [facility] MCV Auto (RBC) [Entitic vol] on [...] Eosinophils # (Auto) 0.3 10 3/uL 0.0-0.7 [facility] Immature Granulocyte # (Auto) 0.12 10 [...] (Bld) [#/Vol] 3.49 10 6/uL Low 4.70-6.10 [facility] Serum or plasma albumin/glob ulin mass ratioon 10-03-2023 Albumin/Globulin [Mass ratio] 0.5 {ratio} [facility] Serum or plasma anion gap de terminationon 10-03-2023 Anion gap [Moles/Vol] 13.9 mmol/L [facility] Basophils Auto (Bld) [#/Vol] on 10-02-2023 [...] 10-02-2023 Albumin [Mass/Vol] 2.1 g/dL Low 3.4-5.0 [facility] ALP [Catalytic activity/Vol] 131 U/L High 46-116 [facility] ALT [Catalytic activity/Vol] 17 U/L 16-63 [facility] AST [Catalytic activity/Vol] 13 U/L Low 15-37 [facility] Bilirubin [Mass/Vol] 0.3 mg/dL 0.2-1.0 [facility] Calcium [Mass/Vol] 6.6 mg/dL Low 8.5-10.1 [facility] Chloride [Moles/Vol] 105 mmol/L 98-107 [facility] CO2 [Moles/Vol] 24.3 mmol/L 21.0-32.0 [facility] Creatinine [Mass/Vol] 1.72 mg/dL High 0.70-1.30 [facility] GFR/1.73 sq M.predicted MDRD (S/P/Bld) [Vol rate/Area] 50 mL/min/{1.73_m2} Low >=60 [facility] Glucose [Mass/Vol] 156 mg/dL High 74-106 [facility] Magnesium [Mass/Vol] 1.5 mg/dL Low 1.8-2.4 [facility] Potassium [Moles/Vol] 4.0 mmol/L 3.5-5.1 [facility] Protein [Mass/Vol] 6.3 g/dL Low 6.4-8.2 [facility] Sodium [Moles/Vol] 139 mmol/L 136-145 [facility] Urea nitrogen [Mass/Vol] 27.0 mg/dL High 7.0-18.0 [facility] Urea nitrogen/Creatinine [Mass ratio] 15.7 mg/mg [facility] Laboratory - Hematology and Cell countson 10-02-2023 Immature granulocytes/100 WBC (Bld) 0.4 % 0.0-0.5 [facility] ESR (Bld) [Velocity] 110 mm/h High <=20 [facility] Laboratory - Microbiology an d Antimicrobial susceptibilityOrdered [...] 10-02-2023 MCHC (RBC) [Mass/Vol] 29.9 g/dL 29.9-35.2 [facility] MCV Auto (RBC) [Entitic vol] on [...] # (Auto) 0.2 10 3/uL 0.0-0.7 [facility] Immature Granulocyte # (Auto) 0.03 10 3/uL 0.00-0.03 [facility] Fungal Smear Result [facility] Miscellaneous Test Comment See comment [place] (Bld) [#/Vol] 3.47 10 6/uL Low 4.70-6.10 [facility] Serum or plasma albumin/glob ulin mass ratioon 10-02-2023 Albumin/Globulin [Mass ratio] 0.5 {ratio} [facility] Serum or plasma anion gap de terminationon 10-02-2023 Anion gap [Moles/Vol] 13.7 mmol/L Fi [facility] Basophils Auto (Bld) [#/Vol] on 10-01-2023 [...] challengeon 10-01-2023 Lactate [Moles/Vol] 1.8 mmol/L 0.4-2.0 [facility] Albumin [Mass/Vol] 1.9 g/dL Low 3.4-5.0 [facility] ALP [Catalytic activity/Vol] 113 U/L 46-116 [facility] ALT [Catalytic activity/Vol] 17 U/L 16-63 [facility] AST [Catalytic activity/Vol] 14 U/L Low 15-37 [facility] Bilirubin [Mass/Vol] 0.3 mg/dL 0.2-1.0 [facility] Calcium [Mass/Vol] 5.7 mg/dL Low 8.5-10.1 [facility] Comment on above: RESULTS CALLED TO Patricio OlguinRN)@BY SKY AndersonT at 0619 Chloride [Moles/Vol] 102 mmol/L 98-107 [facility] CO2 [Moles/Vol] 20.4 mmol/L Low 21.0-32.0 [facility] Creatinine [Mass/Vol] 2.46 mg/dL High 0.70-1.30 [facility] GFR/1.73 sq M.predicted MDRD (S/P/Bld) [Vol rate/Area] 33 mL/min/{1.73_m2} Low >=60 [facility] Glucose [Mass/Vol] 67 mg/dL Low 74-106 [facility] Magnesium [Mass/Vol] 0.8 mg/dL Low 1.8-2.4 [facility] Comment on above: RESULTS CALLED TO Patricio Genao (RN)@BY SOFIYA Way at 0601 Potassium [Moles/Vol] 3.1 mmol/L Low 3.5-5.1 [facility] Protein [Mass/Vol] 5.9 g/dL Low 6.4-8.2 [facility] Sodium [Moles/Vol] 138 mmol/L 136-145 [facility] Urea nitrogen [Mass/Vol] 28.0 mg/dL High 7.0-18.0 [facility] Urea nitrogen/Creatinine [Mass ratio] 11.4 mg/mg [facility] Laboratory - Hematology and Cell countson 10-01-2023 ESR (Bld) [Velocity] 96 mm/h High <=20 [facility] Immature granulocytes/100 WBC (Bld) 0.6 % High [...] 10-01-2023 MCHC (RBC) [Mass/Vol] 30.2 g/dL 29.9-35.2 [facility] MCV Auto (RBC) [Entitic vol] on [...] Eosinophils # (Auto) 0.2 10 3/uL 0.0-0.7 [facility] Immature Granulocyte # (Auto) 0.06 10 [...] (Bld) [#/Vol] 3.57 10 6/uL Low 4.70-6.10 [facility] Serum or plasma albumin/glob ulin mass ratioon 10-01-2023 Albumin/Globulin [Mass ratio] 0.5 {ratio} [facility] Serum or plasma anion gap de terminationon 10-01-2023 Anion gap [Moles/Vol] 18.7 mmol/L [facility] Automated epithelial cells c ount in [...] 09-30-2023 Ketones (U) [Mass/Vol] Negative NEGATIVE [facility] Laboratory - Chemistry and C hemistry - challengeon 09-30-2023 Lactate [Moles/Vol] 4.2 mmol/L High 0.4-2.0 [facility] Comment on above: RESULTS CALLED TO Patricio Genao (RN)@BY SOFI[address] Way at 2312 Albumin [Mass/Vol] 2.4 g/dL Low 3.4-5.0 [facility] ALP [Catalytic activity/Vol] 145 U/L High 46-116 [facility] ALT [Catalytic activity/Vol] 17 U/L 16-63 [facility] AST [Catalytic activity/Vol] 21 U/L 15-37 [facility] Bilirubin [Mass/Vol] 0.4 mg/dL 0.2-1.0 [facility] Calcium [Mass/Vol] 5.8 mg/dL Low 8.5-10.1 [facility] Comment on above: RESULTS CALLED TO KELECHI CASTANON @BY Verona Hanson at 1645 Chloride [Moles/Vol] 97 mmol/L Low 98-107 [facility] CO2 [Moles/Vol] 18.3 mmol/L Low 21.0-32.0 [facility] Creatinine [Mass/Vol] 3.43 mg/dL High 0.70-1.30 [facility] GFR/1.73 sq M.predicted MDRD (S/P/Bld) [Vol rate/Area] 22 mL/min/{1.73_m2} Low >=60 [facility] Glucose [Mass/Vol] 208 mg/dL High 74-106 [facility] Magnesium [Mass/Vol] 0.5 mg/dL Low 1.8-2.4 [facility] Comment on above: RESULTS CALLED TO Kelechi Castanon @BY Marybel Hawkins MLT [id number] Natriuretic peptide B (Bld) [Mass/Vol] 611.0 pg/mL <=900.0 [facility] Potassium [Moles/Vol] 3.9 mmol/L 3.5-5.1 [facility] Protein [Mass/Vol] 7.2 g/dL 6.4-8.2 [facility] Sodium [Moles/Vol] 137 mmol/L 136-145 [facility] Urea nitrogen [Mass/Vol] 34.0 mg/dL High 7.0-18.0 [facility] Urea nitrogen/Creatinine [Mass ratio] 9.9 mg/mg [facility] Laboratory - Hematology and Cell countson 09-30-2023 ESR (Bld) [Velocity] 130 mm/h High <=20 [facility] Immature granulocytes/100 WBC (Bld) 0.6 % High [...] 09-30-2023 MCHC (RBC) [Mass/Vol] 30.4 g/dL 29.9-35.2 [facility] MCV Auto (RBC) [Entitic vol] on [...] Ql (Urine sed) NONE SEEN NONE SEEN [facility] Neutrophils Auto (Bld) [#/Vo l]on 09-30-2023 Neutrophils [...] [facility] Urine [facility] Reflexed NO [facility] C-Reactive Protein, Quantitative 14.76 mg/dL High <=0.50 [facility] Eosinophils # (Auto) 0.2 10 3/uL 0.0-0.7 [facility] Immature Granulocyte # (Auto) 0.09 10 3/uL [...] [Mass/Vol]on 09-30-2023 Protein (U) [Mass/Vol] Negative NEG/TRACE [facility] Prothrombin time (PT)on 09-04 PT Coag (PPP) [Time] 12.9 s High 9.0-11.6 [facility] RBC Auto (Bld) [#/Vol]on RBC (Bld) [#/Vol] 4.41 10 6/uL Low 4.70-6.10 [facility] Serum or plasma albumin/glob ulin mass ratioon 09-30-2023 Albumin/Globulin [Mass ratio] 0.5 {ratio} [facility] Serum or plasma anion gap de terminationon 09-30-2023 Anion gap [Moles/Vol] 25.6 mmol/L [facility] Specific gravity Auto test s trip [...] [pH] 5.0-9.0 [facility] Laboratory - Microbiology an d Antimicrobial susceptibilityOrdered By: Teresa Lynch on 09-21-2023 Microscopic observation Gram stain Nom (Unsp spec) [facility] Activated partial thrombopla stin time (aPTT) in platelet poor plasma by coagulation aon 09-18-2023 aPTT Coag (PPP) [Time] 32.0 s 22.3-36.2 [facility] Basophils Auto (Bld) [#/Vol] on 09-18-2023 [...] challengeon 09-18-2023 Calcium [Mass/Vol] 8.9 mg/dL 8.5-10.1 [facility] Chloride [Moles/Vol] 97 mmol/L Low 98-107 [facility] CO2 [Moles/Vol] 28.2 mmol/L 21.0-32.0 [facility] Creatinine [Mass/Vol] 2.47 mg/dL High 0.70-1.30 [facility] GFR/1.73 sq M.predicted MDRD (S/P/Bld) [Vol rate/Area] 33 mL/min/{1.73_m2} Low >=60 [facility] Glucose [Mass/Vol] 200 mg/dL High 74-106 [facility] Potassium [Moles/Vol] 3.7 mmol/L 3.5-5.1 [facility] Sodium [Moles/Vol] 137 mmol/L 136-145 [facility] Urea nitrogen [Mass/Vol] 23.0 mg/dL High [...] MCHC (RBC) [Mass/Vol] 29.4 g/dL Low 29.9-35.2 [facility] MCV Auto (RBC) [Entitic vol] on [...] Eosinophils # (Auto) 0.3 10 3/uL 0.0-0.7 [facility] Immature Granulocyte # (Auto) 0.07 10 [...] PT Coag (PPP) [Time] 11.4 s 9.0-11.6 [facility] RBC Auto (Bld) [#/Vol]on RBC (Bld) [#/Vol] 4.65 10 6/uL Low 4.70-6.10 [facility] Serum or plasma anion gap de terminationon 09-18-2023 Anion gap [Moles/Vol] 15.5 mmol/L [facility] Laboratory - Microbiology an d Antimicrobial susceptibilityOrdered By: Teresa Lynch on 08-10-2023 Microscopic observation Gram stain Nom (Unsp spec) [facility] No Panel Informationon 08-09 Fungal Smear Result [facility] Miscellaneous Test Comment See comment [facility] Comment on above: Specimen Source: JONO TRT - Foot Right - Foot Rt - [id number] No Panel InformationOrdered By: Teresa Lynch on 08-10-2023 Acid Fast Culture [facility] Acid Fast Smear [facility] challengeon 08-07-2023 Albumin [Mass/Vol] 2.1 g/dL 3.4-5.0 [facility] ALP [Catalytic activity/Vol] 144 U/L 46-116 [facility] ALT [Catalytic activity/Vol] 21 U/L 16-63 [facility] AST [Catalytic activity/Vol] 25 U/L 15-37 [facility] Bilirubin [Mass/Vol] 0.4 mg/dL 0.2-1.0 [facility] Calcium [Mass/Vol] 8.1 mg/dL 8.5-10.1 [facility] Chloride [Moles/Vol] 102 mmol/L 98-107 [facility] CO2 [Moles/Vol] 24.7 mmol/L 21.0-32.0 [facility] Creatinine [Mass/Vol] 1.70 mg/dL 0.70-1.30 [facility] GFR/1.73 sq M.predicted MDRD (S/P/Bld) [Vol rate/Area] 50 mL/min/{1.73_m2} >=60 [facility] Glucose [Mass/Vol] 188 mg/dL 74-106 [facility] Potassium [Moles/Vol] 4.6 mmol/L 3.5-5.1 [facility] Protein [Mass/Vol] 6.1 g/dL 6.4-8.2 [facility] Sodium [Moles/Vol] 135 mmol/L 136-145 [facility] Urea nitrogen [Mass/Vol] 33.0 mg/dL 7.0-18.0 [...] 08-07-2023 MCHC (RBC) [Mass/Vol] 29.8 g/dL 29.9-35.2 [facility] MCV Auto (RBC) [Entitic vol] on [...] Eosinophils # (Auto) 0.5 10 3/uL 0.0-0.7 [facility] Immature Granulocyte # (Auto) 0.09 10 [...] RBC (Bld) [#/Vol] 4.18 10 6/uL 4.70-6.10 [facility] Serum or plasma albumin/glob ulin mass ratioon 08-07-2023 Albumin/Globulin [Mass ratio] 0.5 {ratio} [facility] Serum or plasma anion gap de terminationon 08-07-2023 Anion gap [Moles/Vol] 12.9 mmol/L [facility] Basophils Auto (Bld) [#/Vol] on 08-06-2023 [...] challengeon 08-06-2023 Albumin [Mass/Vol] 2.0 g/dL 3.4-5.0 [facility] ALP [Catalytic activity/Vol] 127 U/L 46-116 [facility] ALT [Catalytic activity/Vol] 14 U/L 16-63 [facility] AST [Catalytic activity/Vol] 16 U/L 15-37 [facility] Bilirubin [Mass/Vol] 0.4 mg/dL 0.2-1.0 [facility] Calcium [Mass/Vol] 7.9 mg/dL 8.5-10.1 [facility] Chloride [Moles/Vol] 99 mmol/L 98-107 [facility] CO2 [Moles/Vol] 25.0 mmol/L 21.0-32.0 [facility] Creatinine [Mass/Vol] 1.95 mg/dL 0.70-1.30 [facility] GFR/1.73 sq M.predicted MDRD (S/P/Bld) [Vol rate/Area] 43 mL/min/{1.73_m2} >=60 [facility] Glucose [Mass/Vol] 297 mg/dL 74-106 [facility] Potassium [Moles/Vol] 4.4 mmol/L 3.5-5.1 [facility] Protein [Mass/Vol] 6.0 g/dL 6.4-8.2 [facility] Sodium [Moles/Vol] 133 mmol/L 136-145 [facility] Urea nitrogen [Mass/Vol] 28.0 mg/dL 7.0-18.0 [...] 08-06-2023 MCHC (RBC) [Mass/Vol] 29.2 g/dL 29.9-35.2 [facility] MCV Auto (RBC) [Entitic vol] on [...] Eosinophils # (Auto) 0.3 10 3/uL 0.0-0.7 [facility] Immature Granulocyte # (Auto) 0.04 10 [...] RBC (Bld) [#/Vol] 3.91 10 6/uL 4.70-6.10 [facility] Serum or plasma albumin/glob ulin mass ratioon 08-06-2023 Albumin/Globulin [Mass ratio] 0.5 {ratio} [facility] Serum or plasma anion gap de terminationon 08-06-2023 Anion gap [Moles/Vol] 13.4 mmol/L [facility] Automated epithelial cells c ount in [...] 08-05-2023 Ketones (U) [Mass/Vol] Negative NEGATIVE [facility] Laboratory - Chemistry and C hemistry - challengeon 08-05-2023 Albumin [Mass/Vol] 2.3 g/dL 3.4-5.0 [facility] ALP [Catalytic activity/Vol] 111 U/L 46-116 [facility] ALT [Catalytic activity/Vol] 11 U/L 16-63 [facility] AST [Catalytic activity/Vol] 11 U/L 15-37 [facility] Bilirubin [Mass/Vol] 0.5 mg/dL 0.2-1.0 [facility] Calcium [Mass/Vol] 8.1 mg/dL 8.5-10.1 [facility] Chloride [Moles/Vol] 101 mmol/L 98-107 [facility] CO2 [Moles/Vol] 25.6 mmol/L 21.0-32.0 [facility] Creatinine [Mass/Vol] 1.68 mg/dL 0.70-1.30 [facility] GFR/1.73 sq M.predicted MDRD (S/P/Bld) [Vol rate/Area] 51 mL/min/{1.73_m2} >=60 [facility] Glucose [Mass/Vol] 111 mg/dL 74-106 [facility] Potassium [Moles/Vol] 3.7 mmol/L 3.5-5.1 [facility] Protein [Mass/Vol] 6.4 g/dL 6.4-8.2 [facility] Sodium [Moles/Vol] 138 mmol/L 136-145 [facility] Urea nitrogen [Mass/Vol] 17.0 mg/dL 7.0-18.0 [...] MCHC (RBC) [Mass/Vol] 29.6 g/dL 29.9-35.2 [facility] MCV Auto (RBC) [Entitic vol] on 08-05-2023 [...] Ql (Urine sed) NONE SEEN NONE SEEN [facility] Neutrophils Auto (Bld) [#/Vo l]on 08-05-2023 Neutrophils (Bld) [#/Vol] 9.1 10 3/uL 1.4-6.5 [facility] Neutrophils/100 WBC Auto (Bl d)on 08-05-2023 Neutrophils/100 WBC (Bld) 73.9 % 43.0-75.0 [facility] No Panel Informationon 08-04 Eosinophils # (Auto) 0.3 10 3/uL 0.0-0.7 [facility] Immature Granulocyte # (Auto) 0.05 10 [...] [Mass/Vol]on 08-05-2023 Protein (U) [Mass/Vol] Negative NEG/TRACE [facility] RBC Auto (Bld) [#/Vol]on RBC (Bld) [#/Vol] 4.19 10 6/uL 4.70-6.10 [facility] Serum or plasma albumin/glob ulin mass ratioon 08-05-2023 Albumin/Globulin [Mass ratio] 0.6 {ratio} [facility] Serum or plasma anion gap de terminationon 08-05-2023 Anion gap [Moles/Vol] 15.1 mmol/L Fi [facility] Specific gravity Auto test s trip (U) [Rel density]on 08-05-2023 Specific gravity (U) [Rel density] CLEAR CLEAR [facility] Urine bacteria detection by automated methodon 08-05-2023 Bacteria Auto Ql (U) TRACE #/HPF NONE SEEN [facility] Urine glucose measurement by test strip [...] challengeon 08-04-2023 Albumin [Mass/Vol] 2.4 g/dL 3.4-5.0 [facility] ALP [Catalytic activity/Vol] 109 U/L 46-116 [facility] ALT [Catalytic activity/Vol] 9 U/L 16-63 [facility] AST [Catalytic activity/Vol] U/L 15-37 [facility] Bilirubin [Mass/Vol] 0.4 mg/dL 0.2-1.0 [facility] Calcium [Mass/Vol] 8.0 mg/dL 8.5-10.1 [facility] Chloride [Moles/Vol] 96 mmol/L 98-107 [facility] CO2 [Moles/Vol] 29.2 mmol/L 21.0-32.0 [facility] Creatinine [Mass/Vol] 2.06 mg/dL 0.70-1.30 [facility] GFR/1.73 sq M.predicted MDRD (S/P/Bld) [Vol rate/Area] 40 mL/min/{1.73_m2} >=60 [facility] Glucose [Mass/Vol] 329 mg/dL 74-106 [facility] Potassium [Moles/Vol] 3.5 mmol/L 3.5-5.1 [facility] Protein [Mass/Vol] 6.8 g/dL 6.4-8.2 [facility] Sodium [Moles/Vol] 132 mmol/L 136-145 [facility] Urea nitrogen [Mass/Vol] 20.0 mg/dL 7.0-18.0 [facility] Urea nitrogen/Creatinine [Mass ratio] 9.7 mg/mg [facility] Laboratory - Hematology and Cell countson 08-04-2023 ESR (Bld) [Velocity] 89 mm/h <=20 [facility] Immature granulocytes/100 WBC (Bld) 0.3 % 0.0-0.5 [...] 08-04-2023 MCHC (RBC) [Mass/Vol] 29.4 g/dL 29.9-35.2 [facility] MCV Auto (RBC) [Entitic vol] on [...] / [facility] No Panel InformationOrdered By: Teresa Lynch on 08-04-2023 Blood Culture 2 [place] [...] Eosinophils # (Auto) 0.3 10 3/uL 0.0-0.7 [facility] Immature Granulocyte # (Auto) 0.04 10 [...] PT Coag (PPP) [Time] 11.1 s 9.0-11.6 [facility] RBC Auto (Bld) [#/Vol]on RBC (Bld) [#/Vol] 4.30 10 6/uL 4.70-6.10 [facility] Serum or plasma albumin/glob ulin mass ratioon 08-04-2023 Albumin/Globulin [Mass ratio] 0.5 {ratio} [facility] Serum or plasma anion gap de terminationon 08-04-2023 Anion gap [Moles/Vol] 10.3 mmol/L [facility] Serum procalcitonin measurem enton 08-04-2023 Procalcitonin [...] challengeon 08-03-2023 Lactate [Moles/Vol] 1.6 mmol/L 0.4-2.0 [facility] Albumin [Mass/Vol] 3.3 g/dL 3.4-5.0 [facility] ALP [Catalytic activity/Vol] 134 U/L 46-116 [facility] ALT [Catalytic activity/Vol] 13 U/L 16-63 [facility] AST [Catalytic activity/Vol] U/L 15-37 [facility] Bilirubin [Mass/Vol] 0.6 mg/dL 0.2-1.0 [facility] Calcium [Mass/Vol] 9.3 mg/dL 8.5-10.1 [facility] Chloride [Moles/Vol] 92 mmol/L 98-107 [facility] CO2 [Moles/Vol] 31.0 mmol/L 21.0-32.0 [facility] Creatinine [Mass/Vol] 2.45 mg/dL 0.70-1.30 [facility] GFR/1.73 sq M.predicted MDRD (S/P/Bld) [Vol rate/Area] 33 mL/min/{1.73_m2} >=60 [facility] Glucose [Mass/Vol] 310 mg/dL 74-106 [facility] Potassium [Moles/Vol] 3.7 mmol/L 3.5-5.1 [facility] Protein [Mass/Vol] 8.3 g/dL 6.4-8.2 [facility] Sodium [Moles/Vol] 133 mmol/L 136-145 [facility] Urea nitrogen [Mass/Vol] 23.0 mg/dL 7.0-18.0 [facility] Urea nitrogen/Creatinine [Mass ratio] 9.4 mg/mg [facility] Laboratory - Hematology and Cell countson 08-03-2023 ESR (Bld) [Velocity] 118 mm/h <=20 [facility] Immature granulocytes/100 WBC (Bld) 0.4 % 0.0-0.5 [...] 08-03-2023 MCHC (RBC) [Mass/Vol] 30.3 g/dL 29.9-35.2 [facility] MCV Auto (RBC) [Entitic vol] on [...] Eosinophils # (Auto) 0.3 10 3/uL 0.0-0.7 [facility] Immature Granulocyte # (Auto) 0.06 10 3/uL 0.00-0.03 [facility] Venous Blood Partial Pressure CO2 44.8 mm[Hg] 40.0-52.0 [facility] Venous Blood pH 7.432 7.330-7.43 0 [facility] No Panel InformationOrdered By: Teresa Lynch on 08-03-2023 Blood Culture 2 [place] [...] RBC (Bld) [#/Vol] 5.23 10 6/uL 4.70-6.10 [facility] Serum or plasma albumin/glob ulin mass ratioon 08-03-2023 Albumin/Globulin [Mass ratio] 0.7 {ratio} [facility] Serum or plasma anion gap de terminationon 08-03-2023 Anion gap [Moles/Vol] 13.7 mmol/L [facility] Activated partial thrombopla stin time (aPTT) in platelet poor plasma by coagulation aOrdered By: Abdullahi Wilson on 07-12-2023 aPTT Coag (PPP) [Time] 29.4 s 25.1-36.5 [facility] Comment on above: A hematocrit value g reater than 55% may lead to inaccurate results in coagulation testing. Patients having hematocrit values >55% require a special collection tube for coagulation studies. Please contact the laboratory at [phone] for redraw instructions. Alanine aminotransferase [En zymatic activity/volume] in Serum or PlasmaOrdered By: Abdullahi Wilson on 07-12-2023 ALT [Catalytic activity/Vol] 9 U/L 7-52 [facility] Albumin [Mass/volume] in Ser um or Plasma by Bromocresol green (BCG) dye binding methoOrdered By: Abdullahi Wilson on 07-12-2023 Albumin BCG dye [Mass/Vol] 3.9 g/dL 3.5-5.7 [facility] Alkaline phosphatase [Enzyma tic activity/volume] in Serum or PlasmaOrdered By: Abdullahi Wilson on 07-12-2023 ALP [Catalytic activity/Vol] 106 U/L 34-104 [facility] Aspartate aminotransferase [ Enzymatic activity/volume] in Serum or PlasmaOrdered By: Abdullahi Wilson on 07-12-2023 AST [Catalytic activity/Vol] 8 U/L 13-39 [facility] Basophils Auto (Bld) [#/Vol] Ordered By: Abdullahi Wilson on 07-12-2023 Basophils (Bld) [#/Vol] 0.1 10*3/uL 0.0-0.2 [facility] Basophils/100 WBC Auto (Bld) Ordered By: Abdullahi Wilson on 07-12-2023 Basophils/100 WBC (Bld) 1.1 % . [facility] Bilirubin.total [Mass/volume ] in Serum or PlasmaOrdered By: Abdullahi Wilson on 07-12-2023 Bilirubin [Mass/Vol] 0.4 mg/dL 0.3-1.0 [facility] Calcium [Mass/volume] in Ser um or PlasmaOrdered By: Abdullahi Wilson on 07-12-2023 Calcium [Mass/Vol] 8.5 mg/dL 8.6-10.3 [facility] Carbon dioxide, total [Moles /volume] in Serum or PlasmaOrdered By: Abdullahi Wilson on 07-12-2023 CO2 [Moles/Vol] 24.5 mmol/L 21.0-31.0 [facility] Chloride [Moles/volume] in S ilia or PlasmaOrdered By: Abdullahi Wilson on 07-12-2023 Chloride [Moles/Vol] 102 mmol/L 98-107 [facility] Creatine kinase [Enzymatic a ctivity/volume] in Serum or PlasmaOrdered By: Abdullahi Wilson on 07-12-2023 CK [Catalytic activity/Vol] 55 U/L 30-223 [facility] Creatinine [Mass/volume] in Serum or PlasmaOrdered By: Abdullahi Wilson on 07-12-2023 Creatinine [Mass/Vol] 1.82 mg/dL 0.70-1.30 [facility] Eosinophils Auto (Bld) [#/Vo l]Ordered By: Abdullahi Wilson on 07-12-2023 Eosinophils (Bld) [#/Vol] 0.3 10*3/uL 0.0-0.45 [facility] Eosinophils/100 WBC Auto (Bl d)Ordered By: Abdullahi Wilson on 07-12-2023 Eosinophils/100 WBC (Bld) 3.3 % . [facility] Erythrocyte distribution wid th Auto (RBC) [Ratio]Ordered By: Abdullahi Wilson on 07-12-2023 Erythrocyte distribution width (RBC) [Ratio] 17.1 % 12.0-14.8 [facility] Globulin Calc (S) [Mass/Vol] Ordered By: Abdullahi Wilson on 07-12-2023 Globulin (S) [Mass/Vol] 3.1 g/dL [facility] Glucose [Mass/volume] in Ser um or PlasmaOrdered By: Abdullahi Wilson on 07-12-2023 Glucose [Mass/Vol] 302 mg/dL 70-100 [facility] Comment on above: ADA recommended refe rence rangeRandom Glucose Reference Range is dependent on time and content of last meal. Glucose of more than 200 mg/dL in a nonstressed, ambulatory subject supports the diagnosis of Diabetes Mellitus. Hematocrit Auto (Bld) [Volum e fraction]Ordered By: Abdullahi Wilson on 07-12-2023 Hematocrit (Bld) [Volume fraction] 32.7 % 38.8-50.0 [facility] Hemoglobin [Mass/volume] in BloodOrdered By: Abdullahi Wilson on 07-12-2023 Hemoglobin (Bld) [Mass/Vol] 10.6 g/dL 13.0-17.0 [facility] INR in [...] Hospital Lymphocytes Auto (Bld) [#/Vo l]Ordered By: Abdullahi Wilson on 07-12-2023 Lymphocytes (Bld) [#/Vol] 1.9 10*3/uL 1.00-4.8 [facility] Lymphocytes/100 WBC Auto (Bl d)Ordered By: Abdullahi Wilson on 07-12-2023 Lymphocytes/100 WBC (Bld) 20.0 % . [facility] MCH Auto (RBC) [Entitic mass ]Ordered By: Abdullahi Wilson on 07-12-2023 MCH (RBC) [Entitic mass] 22.8 pg 27.5-35.2 [facility] MCHC Auto (RBC) [Mass/Vol]Or dered By: Abdullahi Wilson on 07-12-2023 MCHC (RBC) [Mass/Vol] 32.4 g/dL 32.5-35.6 [facility] MCV Auto (RBC) [Entitic vol] Ordered By: Abdullahi Wilson on 07-12-2023 MCV (RBC) [Entitic vol] 70.6 fL 83.5-101 [facility] Monocyte distribution width [Entitic volume] in Blood by AutomatedOrdered By: Abdullahi Wilson on 07-12-2023 Monocyte distribution width Auto (Bld) [Entitic vol] 18.12 % 0.00-20.00 [facility] Monocytes Auto (Bld) [#/Vol] Ordered By: Abdullahi Wilson on 07-12-2023 Monocytes (Bld) [#/Vol] 1.0 10*3/uL 0.0-0.8 [facility] Monocytes/100 WBC Auto (Bld) Ordered By: Abdullahi Wilson on 07-12-2023 Monocytes/100 WBC (Bld) 10.2 % . [facility] Natriuretic peptide B [Mass/ Vol]Ordered By: Abdullahi Wilson on 07-12-2023 Natriuretic peptide B (Bld) [Mass/Vol] 34.0 pg/mL 5-100 [facility] Neutrophils Auto (Bld) [#/Vo l]Ordered By: Abdullahi Wilson on 07-12-2023 Neutrophils (Bld) [#/Vol] 6.2 10*3/uL 1.8-7.7 [facility] Neutrophils/100 WBC Auto (Bl d)Ordered By: Abdullahi Wilson on 07-12-2023 Neutrophils/100 WBC (Bld) 65.4 % . [facility] No Panel InformationOrdered By: Abdullahi Wilson on [...] Hospital Platelets Auto (Bld) [#/Vol] Ordered By: Abdullahi Wilson on 07-12-2023 Platelets (Bld) [#/Vol] 233 10*3/uL 150-450 [facility] Potassium [Moles/volume] in Serum or PlasmaOrdered By: Abdullahi Wilson on 07-12-2023 Potassium [Moles/Vol] 3.9 mmol/L 3.5-5.1 [facility] Protein [Mass/volume] in Ser um or PlasmaOrdered By: Abdullahi Wilson on 07-12-2023 Protein [Mass/Vol] 7.0 g/dL 6.4-8.9 [facility] Prothrombin time (PT)Ordered By: Abdullahi Wilson on 07-12-2023 PT Coag (PPP) [Time] 12.1 s 9.0-12.9 [facility] Comment on above: A hematocrit value g reater than 55% may lead to inaccurate results in coagulation testing. Patients having hematocrit values >55% require a special collection tube for coagulation studies. Please contact the laboratory at [phone] for redraw instructions. RBC Auto (Bld) [#/Vol]Ordere d By: Abdullahi Wilson on 07-12-2023 RBC (Bld) [#/Vol] 4.63 10*6/uL 3.90-5.60 [facility] Serum or plasma albumin/glob ulin mass ratioOrdered By: Abdullahi Wilson on 07-12-2023 Albumin/Globulin [Mass ratio] 1.3 {ratio} [facility] Serum or plasma anion gap de terminationOrdered By: Abdullahi Wilson on 07-12-2023 Anion gap [Moles/Vol] 13.4 mmol/L 6.0-15.0 [facility] Sodium [Moles/volume] in Ser um or PlasmaOrdered By: Abdullahi Wilson on 07-12-2023 Sodium [Moles/Vol] 136 mmol/L 136-145 [facility] Troponin I.cardiac [Mass/vol ume] in Serum or Plasma by Detection limit <= 0.01 ng/Ordered By: Abdullahi Wilson on 07-12-2023 Troponin I.cardiac DL <= 0.01 ng/mL [Mass/Vol] 4.6 pg/mL 0.0-20.0 [facility] Urea nitrogen [Mass/volume] in Serum or PlasmaOrdered By: Abdullahi Wilson on 07-12-2023 Urea nitrogen [Mass/Vol] 16 mg/dL 7-25 [facility] WBC Auto (Bld) [#/Vol]Ordere d By: Abdullahi Wilson on 07-12-2023 WBC (Bld) [#/Vol] 9.5 10*3/uL 4.1-10.5 [facility] Patient Educationon 06-02-20 Patient Education Urology [...] Follow these instructions at home: ? Take pxrb-whp-bwserke and prescription medicines only as told by [...] the medicine (more content not included)... Normal [facility] Retail - Clinical Noteon Retail - Clinical Note [id number]#1.00TIFF Normal [facility] Urology Office/Clinic Noteon 06-02-2023 Urology Office/Clinic Note Chief Complaint S/p to Cysto HPI Staff Sp to [place] [facility] [place]- Has not noticed any difference- [...] Information SOLEDAD HERRERA, Yeyo Blum, URL [address] [id number]- Additional Instructions: 1 month w/ cath volumes [...] heart failure) (more content not included)... Normal [facility] Comment on above: Result Comment: Elec tronically Signed By: SOLEDAD HERRERA, Yeyo Blum\.br\Date and Time Signed: 06/02/23 12:16 EST\.br\Electronically Co-Signed By: Mattie Foster\Date and Time Co-Signed: 06/02/23 12:04 EST Patient Educationon 05-03-20 Patient Education Normal [facility] Pathology Noteon 05-01-2023 Pathology Note [id number]#1.00TIFF Normal [facility] Lab Reportson 04-14-2023 Lab Reports [id number]#1.00TIFF Normal [facility] Operative Reporton Operative Report [id number]#1.00TIFF Normal [facility] Patient Correspondenceon Patient Correspondence [id number]#1.00TIFF Normal [facility] Lab Reportson 03-31-2023 Lab Reports [id number]#1.00TIFF Normal [facility] RAD - MISCon 03-31-2023 RAD - MISC [id number]#1.00TIFF Normal [facility] Patient Correspondenceon Patient Correspondence [id number]#1.00TIFF Normal [facility] Formson 03-23-2023 Forms [id number]#1.00TIFF Normal [facility] A1C HEMOGLOBINon 03-15-2023 HbA1c (Bld) [Mass fraction] 7.5 % [employer] Other HbA1c (Bld) [Mass fraction]o n 03-15-2023 A1C HEMOGLOBIN [facility] Other Lab Reportson 03-09-2023 Lab Reports [id number]#1.00TIFF Marquise Chatman [facility] Office Visit (Cardiology)on 02-15-2023 Follow-up [...] in adult Healthy Weight Tips; Status:Complete; Done: [id number] Patient Instructions Please bring all medicines, vitamins, [...] Sia HERRERA, (more content not included)... Normal [facility] Tobacco Screening.on 023 Fall risk assessment c) Not medically indicated -[facility] [facility] [address] DO Work Phone: Tobacco use status CP b) No [facility] Work Phone: Tobacco Screening. Yes [facility] [facility] 250 DO Work Phone: [facility] CARDIAC STRESS/REST INJE CTIONon 01-25-2023 [facility] CARDIAC STRESS/REST INJECTION Patient Name: MYRA PICKARD STUDY: MYOCARDIAL PERFUSION STRESS TEST WITH EXERCISE CONVERTED TO LEXISCAN Performing facility: [facility], [address] [place] [address], [address], [address] Provider: Dolores Pickard RN, CAR BODY DESIGNER PCP: Dr. Teresa Lynch Supervising provider: Pascale Arnold MD, FACC INDICATION: Anginal equivalent CAD; HISTORY: Gender: M; Age: 57 y/o ; Height: 182.88 cm; Weight: 97.8553992 kg. High Cholesterol; CAD; Diabetes; HTN; Palpitations; Chest Pain; Quit smoking unknown years ago. COMPARISON: Previous nuclear testing completed [id number] at [facility]. ACCESSION NUMBER(S): [id number]; [id number]; [id number] ORDERING CLINICIAN: DOLORES PICKARD TECHNIQUE: ONE DAY [...] Electronically signed by: PASCALE ARNOLD MD Normal [facility] No Panel Informationon 01-25 Normal -[facility] [facility] 250 DO [...] contact the office if new symptoms arise. 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 Normal [facility] Tobacco Screening.on 023 Adult depression screening assessment No [facility] [place] [facility] [place] [address] DO Work Phone: Tobacco use status CPHS b) No [facility] LVL6 600 DO Work Phone: Alanine aminotransferase [En [...] on 09-27-2022 Bilirubin [Mass/Vol] 0.4 mg/dL 0.3-1.0 [facility] Calcium [Mass/volume] in Ser um or PlasmaOrdered By: Teresa Lynch on 09-27-2022 Calcium [Mass/Vol] 8.8 mg/dL 8.6-10.3 [facility] Carbon dioxide, total [Moles /volume] in Serum or PlasmaOrdered By: Teresa Lynch on 09-27-2022 CO2 [Moles/Vol] 27.2 mmol/L 21.0-31.0 [facility] Chloride [Moles/volume] in S ilia or PlasmaOrdered By: Teresa Lynch on 09-27-2022 Chloride [Moles/Vol] 99 mmol/L 98-107 [facility] Cholesterol [Mass/volume] in Serum or PlasmaOrdered By: Teresa Lynch on 09-27-2022 Cholesterol [Mass/Vol] 104 mg/dL 140-200 [facility] Comment on above: Chol less than [...] on 09-27-2022 Creatinine [Mass/Vol] 1.84 mg/dL 0.70-1.30 [facility] Eosinophils Auto (Bld) [#/Vo l]Ordered By: [...] on 09-27-2022 Glucose [Mass/Vol] 225 mg/dL 70-100 [facility] Comment on above: ADA recommended refe [...] [facility] Hemoglobin [Mass/volume] in BloodOrdered By: Teresa [...] 09-27-2022 MCHC (RBC) [Mass/Vol] 32.2 g/dL 32.5-35.6 [facility] MCV Auto (RBC) [Entitic vol] Ordered [...] / [facility] No Panel InformationOrdered By: Teresa Lynch [...] [Moles/volume] in Serum or PlasmaOrdered By: Teresa Lycnh on 09-27-2022 Potassium [Moles/Vol] 4.3 mmol/L 3.5-5.1 [facility] Protein [Mass/volume] in Ser um or PlasmaOrdered By: Teresa Lynch on 09-27-2022 Protein [Mass/Vol] 7.0 g/dL 6.4-8.9 [facility] RBC Auto (Bld) [#/Vol]Ordere d By: Teresa Lynch on 09-27-2022 RBC (Bld) [#/Vol] 5.52 10*6/uL 3.90-5.60 [facility] Serum or plasma albumin/glob ulin mass ratioOrdered By: Teresa Lynch on 09-27-2022 Albumin/Globulin [Mass ratio] 1.4 {ratio} [facility] Serum or plasma anion gap de terminationOrdered By: Teresa Lynch on 09-27-2022 Anion gap [Moles/Vol] 14.1 mmol/L 6.0-15.0 [facility] Serum or plasma high density lipoprotein [...] on 09-27-2022 Sodium [Moles/Vol] 136 mmol/L 136-145 [facility] Thyrotropin [Units/volume] i n Serum or [...] on 09-27-2022 Urate [Mass/Vol] 6.2 mg/dL 2.4-7.6 [facility] Urea nitrogen [Mass/volume] in Serum or PlasmaOrdered By: Teresa Lynch on 09-27-2022 Urea nitrogen [Mass/Vol] 15 mg/dL 12-27 [facility] WBC Auto (Bld) [#/Vol]Ordere d By: Teresa Lynch on 09-27-2022 WBC (Bld) [#/Vol] 12.4 10*3/uL 4.1-10.5 [facility] A1C HEMOGLOBINon 02-15-2022 HbA1c (Bld) [Mass fraction] % [employer] Other HbA1c (Bld) [Mass fraction]o n 02-15-2022 A1C HEMOGLOBIN [place] [email or web address] Other Tobacco Screening.on 022 Adult depression screening assessment No [facility] [facility] 250 DO Work Phone: Tobacco use status CPHS b) No [facility] [facility] 250 DO Work Phone: A1C HEMOGLOBINon 07-27-2021 HbA1c (Bld) [Mass fraction] 11.8 % [employer] Other HbA1c (Bld) [Mass fraction]o n 07-27-2021 A1C HEMOGLOBIN [facility] Other Vital Signs Date Time Vital Sign Value Performing Clinician Facility 11-05-2024 16:13-0400 Body height 182.88 cm Teresa Lynch DO Work Phone: [facility] 11-05-2024 16:13-0400 Body mass index (BMI) [Ratio] 28.2 kg/m2 Teresagorge Fraustos DO Work Phone: [facility] 11-05-2024 16:13-0400 Body weight 94.34 kg Teresagorge Fraustos DO Work Phone: [facility] 11-05-2024 16:13-0400 Diastolic blood pressure 67 mm[Hg] Teresa Jetts DO Work Phone: [facility] 11-05-2024 16:13-0400 Heart rate 68 /min Teresa Jetts DO Work Phone: [facility] 11-05-2024 16:13-0400 Respiratory rate 18 /min Teresa Jetts DO Work Phone: [facility] 11-05-2024 16:13-0400 SaO2% (BldA) [Mass fraction] 96 % Teresagorge Fraustos DO Work Phone: [facility] 11-05-2024 16:13-0400 Systolic blood pressure 105 mm[Hg] Teresagorge Fraustos DO Work Phone: [facility] 11-05-2024 13:50-0400 Body weight 96.16 kg Teresa Fraustos DO Work Phone: [facility] 11-05-2024 13:50-0400 Diastolic blood pressure 68 mm[Hg] Teresa Jetts DO Work Phone: [facility] 11-05-2024 13:50-0400 Heart rate 70 /min Teresa Jetts DO Work Phone: [facility] 11-05-2024 13:50-0400 Respiratory rate 18 /min Teresa Jetts DO Work Phone: [facility] 11-05-2024 13:50-0400 SaO2% (BldA) [Mass fraction] 98 % Teresa Jetts DO Work Phone: [facility] 11-05-2024 13:50-0400 Systolic blood pressure 108 mm[Hg] Teresa Kuns DO Work Phone: [facility] 10-11-2024 13:40-0400 Heart rate 62 /min Teresa Fraustos DO Work Phone: [facility] 10-11-2024 13:40-0400 Respiratory rate 20 /min Teresa Fraustos DO Work Phone: [facility] 10-11-2024 08:00-0400 Body temperature 98.3 [degF] Teresa Fraustos DO Work Phone: [facility] 10-11-2024 08:00-0400 Diastolic blood pressure 68 mm[Hg] Teresa Fraustos DO Work Phone: [facility] 10-11-2024 08:00-0400 SaO2% (BldA) [Mass fraction] 96 % Teresa Fraustos DO Work Phone: [facility] 10-11-2024 08:00-0400 Systolic blood pressure 117 mm[Hg] Teresa Fraustos DO Work Phone: [facility] 10-11-2024 06:00-0400 Body weight 92.6 kg Teresa Fraustos DO Work Phone: [facility] 10-10-2024 20:48-0400 Body height 182.88 cm Teresa Fraustos DO Work Phone: [facility] 10-10-2024 20:30-0400 Diastolic blood pressure 71 mm[Hg] Teresagorge Fraustos DO Work Phone: [facility] 10-10-2024 20:30-0400 Heart rate 78 /min Teresagorge Fraustos DO Work Phone: [facility] 10-10-2024 20:30-0400 Respiratory rate 18 /min Teresagorge Fraustos DO Work Phone: [facility] 10-10-2024 20:30-0400 SaO2% (BldA) [Mass fraction] 97 % Teresa Fraustos DO Work Phone: [facility] 10-10-2024 20:30-0400 Systolic blood pressure 117 mm[Hg] Teresa Fraustos DO Work Phone: [facility] 10-10-2024 14:36-0400 Body height 182.88 cm Teresa Fraustos DO Work Phone: [facility] 10-10-2024 14:36-0400 Body temperature 97.6 [degF] Teresa Fraustos DO Work Phone: [facility] 10-10-2024 14:36-0400 Body weight 88.45 kg Teresa Fraustos DO Work Phone: [facility] 08-30-2024 09:28-0400 Body height 182.88 cm Teresa Fraustos DO Work Phone: [facility] 08-30-2024 09:28-0400 Body mass index (BMI) [Ratio] 27.1 kg/m2 Teresa Fraustos DO Work Phone: [facility] 08-30-2024 09:28-0400 Body weight 90.71 kg Teresa Fraustos DO Work Phone: [facility] 08-30-2024 09:28-0400 Diastolic blood pressure 70 mm[Hg] Teresa Fraustos DO Work Phone: [facility] 08-30-2024 09:28-0400 Heart rate 82 /min Teresa Fraustos DO Work Phone: [facility] 08-30-2024 09:28-0400 Respiratory rate 16 /min Teresa Fraustos DO Work Phone: [facility] 08-30-2024 09:28-0400 SaO2% (BldA) [Mass fraction] 99 % Teresa Fraustos DO Work Phone: [facility] 08-30-2024 09:28-0400 Systolic blood pressure 102 mm[Hg] Teresa Fraustos DO Work Phone: [facility] 08-13-2024 15:30-0400 Heart rate 66 /min Teresa Jetts DO Work Phone: [facility] 08-13-2024 15:30-0400 Respiratory rate 20 /min Teresa Fraustos DO Work Phone: [facility] 08-13-2024 15:14-0400 Diastolic blood pressure 69 mm[Hg] Teresa Jetts DO Work Phone: [facility] 08-13-2024 15:14-0400 SaO2% (BldA) [Mass fraction] 99 % Teresa Fraustos DO Work Phone: [facility] 08-13-2024 15:14-0400 Systolic blood pressure 122 mm[Hg] Teresa Jetts DO Work Phone: [facility] 08-13-2024 08:21-0400 Body temperature 97.6 [degF] Teresa Jetts DO Work Phone: [facility] 08-13-2024 06:48-0400 Body weight 91.5 kg Teresa Fraustos DO Work Phone: [facility] 08-11-2024 14:57-0400 Body height 182.88 cm Teresagorge Fraustos DO Work Phone: [facility] 08-11-2024 06:29-0400 Body height 182.88 cm Teresa Kuns DO Work Phone: [facility] 08-11-2024 06:29-0400 Body temperature 98 [degF] Teresa Kuns DO Work Phone: [facility] 08-11-2024 06:29-0400 Body weight 91.3 kg Teresa Fraustos DO Work Phone: [facility] 08-11-2024 06:29-0400 Diastolic blood pressure 61 mm[Hg] Teresa Jetts DO Work Phone: [facility] 08-11-2024 06:29-0400 Heart rate 92 /min Teresa Lynch DO Work Phone: [facility] 08-11-2024 06:29-0400 Respiratory rate 16 /min Teresa Lynch DO Work Phone: [facility] 08-11-2024 06:29-0400 SaO2% (BldA) [Mass fraction] 99 % Teresa Lynch DO Work Phone: [facility] 08-11-2024 06:29-0400 Systolic blood pressure 113 mm[Hg] Teresa Lynch DO Work Phone: [facility] 08-02-2024 09:02-0500 Blood Pressure Location MARYBEL THORNTONRY [facility] 08-02-2024 09:02-0500 Body temperature 96.98 [degF] MARYBEL RASHI [facility] 08-02-2024 09:02-0500 Diastolic blood pressure 69 mm[Hg] MARYBEL RASHI [facility] 08-02-2024 09:02-0500 Heart rate 80 /min MARYBEL RASHI [facility] 08-02-2024 09:02-0500 Respiratory rate 18 /min MARYBEL RASHI [facility] 08-02-2024 09:02-0500 Systolic blood pressure 118 mm[Hg] MARYBEL RASHI [facility] 05-27-2024 14:47-0500 Blood Pressure Location Yeyo ROWE [facility] 05-27-2024 14:47-0500 Body temperature 98.6 [degF] Yeyo ROWE [facility] 05-27-2024 14:47-0500 Diastolic blood pressure 69 mm[Hg] Yeyo ROWE [facility] 05-27-2024 14:47-0500 Heart rate 70 /min Yeyo ROWE [facility] 05-27-2024 14:47-0500 Respiratory rate 16 /min Yeyo ROWE [facility] 05-27-2024 14:47-0500 Systolic blood pressure 107 mm[Hg] Yeyo ROWE [facility] 05-07-2024 16:35-0500 Body temperature 98 [degF] Teresa Kuns DO Work Phone: [facility] 05-07-2024 16:35-0500 Diastolic blood pressure 55 mm[Hg] Teresa Kuns DO Work Phone: [facility] 05-07-2024 16:35-0500 Heart rate 79 /min Teresa Kuns DO Work Phone: [facility] 05-07-2024 16:35-0500 Respiratory rate 16 /min Teresa Kuns DO Work Phone: [facility] 05-07-2024 16:35-0500 SaO2% (BldA) [Mass fraction] 99 % Teresa Kuns DO Work Phone: [facility] 05-07-2024 16:35-0500 Systolic blood pressure 86 mm[Hg] Teresa Kuns DO Work Phone: [facility] 04-24-2024 11:04-0500 Diastolic blood pressure 60 mm[Hg] Kait Dan MD Work Phone: [facility] 04-24-2024 11:04-0500 Heart rate 86 /min Kait Dan MD Work Phone: [facility] 04-24-2024 11:04-0500 SaO2% (BldA) [Mass fraction] 99 % Kait Dan MD Work Phone: [facility] 04-24-2024 11:04-0500 Systolic blood pressure 122 mm[Hg] Kait Dan MD Work Phone: [facility] 04-23-2024 14:30-0500 Diastolic blood pressure 67 mm[Hg] Kait Dan MD Work Phone: [facility] 04-23-2024 14:30-0500 Heart rate 74 /min Kait Dan MD Work Phone: [facility] 04-23-2024 14:30-0500 Respiratory rate 18 /min Kait Dan MD Work Phone: [facility] 04-23-2024 14:30-0500 SaO2% (BldA) [Mass fraction] 98 % Kait Dan MD Work Phone: [facility] 04-23-2024 14:30-0500 Systolic blood pressure 104 mm[Hg] Kait Dan MD Work Phone: [facility] 04-23-2024 12:52-0500 Body height 182.88 cm Kait Dan MD Work Phone: [facility] 04-23-2024 12:52-0500 Body weight 88.45 kg Kait Dan MD Work Phone: [facility] 04-04-2024 16:48-0400 Body weight 88.45 kg Kait Dan MD Work Phone: [facility] 04-04-2024 14:00-0400 Diastolic blood pressure 62 mm[Hg] Kait Dan MD Work Phone: [facility] 04-04-2024 14:00-0400 Heart rate 86 /min Kait Dan MD Work Phone: [facility] 04-04-2024 14:00-0400 Respiratory rate 18 /min Kait Dan MD Work Phone: [facility] 04-04-2024 14:00-0400 SaO2% (BldA) [Mass fraction] 97 % Kait Dan MD Work Phone: [facility] 04-04-2024 14:00-0400 Systolic blood pressure 100 mm[Hg] Kait Dan MD Work Phone: [facility] 03-21-2024 10:30-0400 Diastolic blood pressure 68 mm[Hg] MD Kait Dan Work Phone: [facility] 03-21-2024 10:30-0400 Heart rate 95 /min MD Kait Dan Work Phone: [facility] 03-21-2024 10:30-0400 Systolic blood pressure 103 mm[Hg] MD Kait Dan Work Phone: [facility] 03-19-2024 17:26-0400 Body temperature 98.01 [degF] Guero Furlong DO Work Phone: [facility] 03-19-2024 17:26-0400 Diastolic blood pressure 78 mm[Hg] Guero Furlong DO Work Phone: [facility] 03-19-2024 17:26-0400 Heart rate 85 /min Guero Furlong DO Work Phone: [facility] 03-19-2024 17:26-0400 Respiratory rate 19 /min Guero Furlong DO Work Phone: [facility] 03-19-2024 17:26-0400 SaO2% (BldA) [Mass fraction] 96 % Guero Furlong DO Work Phone: [facility] 03-19-2024 17:26-0400 Systolic blood pressure 124 mm[Hg] Guero Furlong DO Work Phone: [facility] [employer] [facility] 03-15-2024 18:27-0400 Body mass index (BMI) [Ratio] 26.75 kg/m2 Guero Furlong DO Work Phone: [facility] 03-15-2024 18:27-0400 Body temperature 98.01 [degF] Guero Furlong DO Work Phone: [facility] [employer] [facility] 03-15-2024 18:27-0400 Body weight 89.45 kg Guero Furlong DO Work Phone: [facility] [employer] [facility] 03-15-2024 18:27-0400 Diastolic blood pressure 94 mm[Hg] Guero Furlong DO Work Phone: [facility] [employer] [facility] 03-15-2024 18:27-0400 Heart rate 84 /min Guero Furlong DO [email or web address] 03-15-2024 18:27-0400 Respiratory rate 18 /min Guero Furlong DO Work Phone: [facility] [employer] [facility] 03-15-2024 18:27-0400 SaO2% (BldA) [Mass fraction] 95 % Guero Furlong DO Work Phone: [facility] 03-15-2024 18:27-0400 Systolic blood pressure 131 mm[Hg] Guero Furlong DO Work Phone: [facility] 03-13-2024 11:08-0400 Body temperature 97.8 [degF] [...] 90.2 kg MD Kait Dan Work Phone: [place] [...] 91.5 kg MD Kait Dan Work Phone: [facility] 02-29-2024 09:27-0400 Body height 182.9 cm Mike Montes MD Work Phone: [facility] 02-29-2024 09:27-0400 Body mass index (BMI) [Ratio] 26.85 kg/m2 Mike Montes MD Work Phone: [facility] 02-29-2024 09:27-0400 Body temperature 98.01 [degF] Mike Montes MD Work Phone: [facility] 02-29-2024 09:27-0400 Body weight 89.81 kg Mike Montes MD Work Phone: [facility] 02-29-2024 09:27-0400 Diastolic blood pressure 62 mm[Hg] Mike Montes MD Work Phone: [facility] 02-29-2024 09:27-0400 Heart rate 77 /min Mike Montes MD Work Phone: [facility] 02-29-2024 09:27-0400 Respiratory rate 20 /min Mike Montes MD Work Phone: [facility] 02-29-2024 09:27-0400 SaO2% (BldA) [Mass fraction] 99 % Mike Montes MD Work Phone: [facility] 02-29-2024 09:27-0400 Systolic blood pressure 90 mm[Hg] Mike Montes MD Work Phone: [facility] 02-28-2024 14:52-0400 Body mass index (BMI) [Ratio] 26.65 kg/m2 Guero Furlong DO Work Phone: [facility] 02-28-2024 14:52-0400 Body temperature 98.01 [degF] Guero Furlong DO Work Phone: [facility] 02-28-2024 14:52-0400 Body weight 89.13 kg Guero Furlong DO Work Phone: [facility] 02-28-2024 14:52-0400 Diastolic blood pressure 77 mm[Hg] Guero Furlong DO Work Phone: [facility] 02-28-2024 14:52-0400 Heart rate 95 /min Guero Furlong DO Work Phone: [facility] 02-28-2024 14:52-0400 Respiratory rate 18 /min Guero Furlong DO Work Phone: [facility] 02-28-2024 14:52-0400 SaO2% (BldA) [Mass fraction] 98 % Guero Furlong DO Work Phone: [facility] 02-28-2024 14:52-0400 Systolic blood pressure 129 mm[Hg] Guero Furlong DO Work Phone: [facility] 02-21-2024 17:40-0400 [employer] Round[employer] Mike Montes [facility] 02-21-2024 17:40-0400 Promise to Return Mike Montes [facility] 02-21-2024 16:32-0400 Hourly Rounding Mohcarlos Simon [facility] 02-21-2024 16:32-0400 Promise to Return Mohamed Simon [facility] 02-21-2024 15:00-0400 Hourly Rounding Mike Simon [facility] 02-21-2024 15:00-0400 Promise to Return Mohcarlos Simon [facility] 02-21-2024 10:51-0400 Heart rate 70 /min Mike Simon [facility] 02-21-2024 10:51-0400 SaO2% (BldA) [Mass fraction] 100 % Mike Simon [facility] 02-21-2024 10:47-0400 Body temperature 98.06 [degF] Mohcarlos Simon [facility] 02-21-2024 10:46-0400 Diastolic blood pressure 63 mm[Hg] Albertamed Simon [facility] 02-21-2024 10:46-0400 Mean blood pressure 76 mm[Hg] Albertamed Simon [facility] 02-21-2024 10:46-0400 Systolic blood pressure 101 mm[Hg] Mohamed Simon [facility] 02-21-2024 10:15-0400 Blood Pressure Location Mohamed Simon [facility] 02-21-2024 10:15-0400 Diastolic blood pressure 58 mm[Hg] Mohamed Simon [facility] 02-21-2024 10:15-0400 Heart rate 76 /min Mohamed Simon [facility] 02-21-2024 10:15-0400 Mean blood pressure 74 mm[Hg] Mike Montes [facility] 02-21-2024 10:15-0400 SaO2% (BldA) [Mass fraction] 100 % Mike Simon [facility] 02-21-2024 10:15-0400 Systolic blood pressure 106 mm[Hg] Mike Simon [facility] 02-21-2024 08:27-0400 Diastolic blood pressure 61 mm[Hg] Mike Simon [facility] 02-21-2024 08:27-0400 Systolic blood pressure 100 mm[Hg] Mike Simon [facility] 02-21-2024 08:25-0400 Heart rate 50 /min Mike Halean [facility] 02-21-2024 07:36-0400 Heart rate 68 /min Mike Simon [facility] 02-21-2024 07:36-0400 SaO2% (BldA) [Mass fraction] 100 % Mike Montes [facility] 02-21-2024 07:36-0400 Mean blood pressure 74 mm[Hg] Mike Simon [facility] 02-21-2024 07:36-0400 Body temperature 97.52 [degF] Mike Simon [facility] 02-21-2024 00:00-0400 Blood Pressure Location Mike Simon [facility] 02-21-2024 00:00-0400 Body temperature 97.52 [degF] Mike Simon [facility] 02-21-2024 00:00-0400 Mean blood pressure 77 mm[Hg] Mike Simon [facility] 02-20-2024 21:16-0400 Heart rate 83 /min Mohcarlos Simon [facility] 02-20-2024 19:29-0400 Mean blood pressure 82 mm[Hg] Mohamed Simon [facility] 02-20-2024 19:29-0400 Body temperature 98.06 [degF] Mohamed Simon [facility] 02-20-2024 15:37-0400 gluc 104 mg/dL Mohamed Simon [facility] 02-20-2024 11:00-0400 Body temperature 98.42 [degF] Mohamed Simon [facility] 02-20-2024 11:00-0400 gluc 165 mg/dL Mohamed Simon [facility] 02-20-2024 11:00-0400 Mean blood pressure 81 mm[Hg] Mike Simon [facility] 02-20-2024 09:36-0400 Heart rate 96 /min Mohamed Simon [facility] 02-20-2024 09:00-0400 gluc 250 mg/dL Mohamed Simon [facility] 02-20-2024 09:00-0400 Respiratory rate 16 /min Mohamed Simon [facility] 02-20-2024 05:00-0400 Respiratory rate 18 /min Mohamed Simon [facility] 02-19-2024 23:00-0400 Respiratory rate 18 /min Mohamed Simon [facility] 02-15-2024 05:17-0400 Heart rate 83 /min Mohamed Simon [facility] 02-15-2024 00:28-0400 Heart rate 83 /min Mike Montes [facility] 02-14-2024 06:15-0400 Heart rate 89 /min Mike Montes [facility] 02-12-2024 16:40-0400 Respiratory rate 17 /min Mike Montes [facility] 02-12-2024 16:15-0400 Body temperature 97.7 [degF] Mike Montes [facility] 02-12-2024 16:15-0400 Respiratory rate 19 /min Mike Montes [facility] 02-12-2024 16:00-0400 Respiratory rate 18 /min Mike Montes [facility] 02-12-2024 14:46-0400 Body temperature 98.06 [degF] Mike Montes [facility] 01-18-2024 08:56-0400 Body height 182.9 cm Mike Montes MD Work Phone: [facility] 01-18-2024 08:56-0400 Body mass index (BMI) [Ratio] 27.8 kg/m2 Mike Montes MD Work Phone: [facility] 01-18-2024 08:56-0400 Body weight 92.99 kg Mike Montes MD Work Phone: [facility] 01-18-2024 08:56-0400 Diastolic blood pressure 67 mm[Hg] Mike Montes MD Work Phone: [facility] 01-18-2024 08:56-0400 Heart rate 122 /min Mike Montes MD Work Phone: [facility] 01-18-2024 08:56-0400 SaO2% (BldA) [Mass fraction] 100 % Mike Montes MD Work Phone: [facility] 01-18-2024 08:56-0400 Systolic blood pressure 108 mm[Hg] Mike Montes MD Work Phone: [facility] 01-17-2024 12:34-0400 Body height 182.[address] 01-17-2024 12:34-0400 Body mass index (BMI) [Ratio] 28.62 kg/m2 [address] 01-17-2024 12:34-0400 Body weight 95.[address] 01-17-2024 12:34-0400 Diastolic blood pressure 58 mm[Hg] [address] 01-17-2024 12:34-0400 Systolic blood pressure 102 mm[Hg] [address] 11-30-2023 23:10-0400 Body mass index (BMI) [Ratio] 27.86 kg/m2 Guero Furlong DO Work Phone: [facility] 11-30-2023 23:10-0400 Body temperature 97.3 [degF] Guero Furlong DO Work Phone: [facility] 11-30-2023 23:10-0400 Body weight 93.17 kg Guero Furlong DO Work Phone: [facility] 11-30-2023 23:10-0400 Diastolic blood pressure 74 mm[Hg] Guero Furlong DO Work Phone: [facility] 11-30-2023 23:10-0400 Heart rate 70 /min Guero Furlong DO Work Phone: [facility] 11-30-2023 23:10-0400 Respiratory rate 18 /min Guero Furlong DO Work Phone: [facility] 11-30-2023 23:10-0400 SaO2% (BldA) [Mass fraction] 98 % Guero Furlong DO Work Phone: [facility] 11-30-2023 23:10-0400 Systolic blood pressure 122 mm[Hg] Guero Furlong DO Work Phone: [facility] 11-30-2023 08:49-0400 Body height 182.9 cm Mike Montes MD Work Phone: [facility] 11-30-2023 08:49-0400 Body mass index (BMI) [Ratio] 28.21 kg/m2 Mike Montes MD Work Phone: [facility] 11-30-2023 08:49-0400 Body weight 94.35 kg Mike Montes MD Work Phone: [facility] 11-30-2023 08:49-0400 Diastolic blood pressure 78 mm[Hg] Mike Montes MD Work Phone: [facility] 11-30-2023 08:49-0400 Heart rate 94 /min Mike Montes MD Work Phone: [facility] 11-30-2023 08:49-0400 SaO2% (BldA) [Mass fraction] 99 % Mike Montes MD Work Phone: [facility] 11-30-2023 08:49-0400 Systolic blood pressure 109 mm[Hg] Mike Montes MD Work Phone: [facility] 11-24-2023 18:59-0400 Body mass index (BMI) [Ratio] 27.85 kg/m2 Guero Furlong DO Work Phone: [facility] 11-24-2023 18:59-0400 Body temperature 98.4 [degF] Guero Furlong DO Work Phone: [facility] 11-24-2023 18:59-0400 Body weight 93.17 kg Guero Furlong DO Work Phone: [facility] 11-24-2023 18:59-0400 Diastolic blood pressure 70 mm[Hg] Guero Furlong DO Work Phone: [facility] 11-24-2023 18:59-0400 Heart rate 68 /min Guero Furlong DO Work Phone: [facility] 11-24-2023 18:59-0400 Systolic blood pressure 122 mm[Hg] Guero Furlong DO Work Phone: [facility] 11-07-2023 15:50-0400 Body temperature 98.4 [degF] Guero Furlong DO Work Phone: [facility] 11-07-2023 15:50-0400 Diastolic blood pressure 97 mm[Hg] Guero Furlong DO Work Phone: [facility] 11-07-2023 15:50-0400 Heart rate 77 /min Guero Furlong DO Work Phone: [facility] 11-07-2023 15:50-0400 Systolic blood pressure 157 mm[Hg] Guero Furlong DO Work Phone: [facility] 11-03-2023 14:11-0400 Body mass index (BMI) [Ratio] 28.02 kg/m2 Guero Furlong DO Work Phone: [facility] 11-03-2023 14:11-0400 Body temperature 97.7 [degF] Guero Furlong DO Work Phone: [facility] 11-03-2023 14:11-0400 Body weight 93.71 kg Guero Furlong DO Work Phone: [facility] 11-03-2023 14:11-0400 Diastolic blood pressure 76 mm[Hg] Guero Furlong DO Work Phone: [facility] 11-03-2023 14:11-0400 Heart rate 75 /min Guero Furlong DO Work Phone: [facility] 11-03-2023 14:11-0400 Respiratory rate 20 /min Gu[facility] 11-03-2023 14:11-0400 SaO2% (BldA) [Mass fraction] 97 % Guero Furlong DO [email or web address] 11-03-2023 14:11-0400 Systolic blood pressure 122 mm[Hg] Guero Furlong DO [email or web address] 10-25-2023 22:00-0400 Body mass index (BMI) [Ratio] 29.7 kg/m2 Guero Furlong DO Work Phone[email or web address] 10-25-2023 22:00-0400 Body temperature 97.59 [degF] Guero Furlong DO [email or web address] 10-25-2023 22:00-0400 Body weight 99.34 kg Guero Furlong DO [email or web address] 10-25-2023 22:00-0400 Diastolic blood pressure 68 mm[Hg] Guero Furlong DO [email or web address] 10-25-2023 22:00-0400 Heart rate 70 /min Guero Furlong DO [email or web address] 10-25-2023 22:00-0400 Respiratory rate 20 /min Guero Furlong DO [email or web address] 10-25-2023 22:00-0400 SaO2% (BldA) [Mass fraction] 97 % Guero Furlong DO Work [email or web address] 10-25-2023 22:00-0400 Systolic blood pressure 128 mm[Hg] Guero Furlong DO Work [email or web address] 10-24-2023 10:56-0400 Body height 182.9 cm Raulito Inman MD Work Phone: [facility] 10-24-2023 10:56-0400 Diastolic blood pressure 86 mm[Hg] Raulito Inman MD Work Phone: [facility] 10-24-2023 10:56-0400 Heart rate 104 /min Raulito Inman MD Work Phone: [facility] 10-24-2023 10:56-0400 Systolic blood pressure 134 mm[Hg] Raulito Inman MD Work Phone: [facility] 10-23-2023 09:37-0400 Blood Pressure Location Mike Montes [facility] 10-23-2023 09:37-0400 Diastolic blood pressure 82 mm[Hg] Mike Montes [facility] 10-23-2023 09:37-0400 Heart rate 107 /min Mike Montes [facility] 10-23-2023 09:37-0400 SaO2% (BldA) [Mass fraction] 98 % Mike Montes [facility] 10-23-2023 09:37-0400 Systolic blood pressure 130 mm[Hg] Mike Montes [facility] 10-18-2023 08:26-0400 Diastolic blood pressure 90 mm[Hg] Mike Montes MD Work Phone: [facility] 10-18-2023 08:26-0400 Systolic blood pressure 138 mm[Hg] Mike Montes MD Work Phone: [facility] 10-18-2023 08:25-0400 Body height 182.9 cm Mike Montes MD Work Phone: [facility] 10-18-2023 08:25-0400 Body mass index (BMI) [Ratio] 28.07 kg/m2 Mike Montes MD Work Phone: [facility] 10-18-2023 08:25-0400 Body weight 93.89 kg Mike Montes MD Work Phone: [facility] 10-17-2023 13:51-0400 Body temperature 98.4 [degF] Guero Furlong DO Work Phone: [facility] 10-17-2023 13:51-0400 Body weight 93.89 kg Guero Furlong DO Work Phone: [facility] 10-17-2023 13:51-0400 Diastolic blood pressure 70 mm[Hg] Guero Furlong DO Work Phone: [facility] 10-17-2023 13:51-0400 Heart rate 94 /min Guero Furlong DO Work Phone: [facility] 10-17-2023 13:51-0400 Respiratory rate 18 /min Guero Furlong DO Work Phone: [facility] 10-17-2023 13:51-0400 SaO2% (BldA) [Mass fraction] 97 % Guero Furlong DO Work Phone: [facility] 10-17-2023 13:51-0400 Systolic blood pressure 132 mm[Hg] Guero Furlong DO Work Phone: [facility] 10-10-2023 23:33-0400 Body temperature 98.1 [degF] Guero Furlong DO Work Phone: [facility] 10-10-2023 23:33-0400 Diastolic blood pressure 78 mm[Hg] Guero Furlong DO Work Phone: [facility] 10-10-2023 23:33-0400 Heart rate 102 /min Guero Furlong DO Work Phone: [facility] 10-10-2023 23:33-0400 Respiratory rate 18 /min Guero Furlong DO Work Phone: [facility] 10-10-2023 23:33-0400 SaO2% (BldA) [Mass fraction] 98 % Guero Furlong DO Work Phone: [facility] 10-10-2023 23:33-0400 Systolic blood pressure 142 mm[Hg] Guero Furlong DO Work Phone: [facility] 10-06-2023 16:50-0400 Body temperature 98.4 [degF] Guero Furlong DO Work Phone: [facility] 10-06-2023 16:50-0400 Body weight 93.89 kg Guero Furlong DO Work Phone: [facility] 10-06-2023 16:50-0400 Diastolic blood pressure 71 mm[Hg] Guero Furlong DO Work Phone: [facility] 10-06-2023 16:50-0400 Heart rate 98 /min Guero Furlong DO Work Phone: [facility] 10-06-2023 16:50-0400 Respiratory rate 18 /min Guero Furlong DO Work Phone: [facility] 10-06-2023 16:50-0400 SaO2% (BldA) [Mass fraction] 96 % Guero Furlong DO Work Phone: [facility] 10-06-2023 16:50-0400 Systolic blood pressure 117 mm[Hg] Guero Furlong DO Work Phone: [facility] 07-31-2023 12:00-0500 Diastolic blood pressure 63 mm[Hg] DO Teresa Jetts Work Phone: [facility] 07-31-2023 12:00-0500 Heart rate 75 /min DO Teresa Kuns Work Phone: [facility] 07-31-2023 12:00-0500 Systolic blood pressure 108 mm[Hg] DO Teresa Kuns Work Phone: [facility] 07-31-2023 08:33-0500 Respiratory rate 18 /min DO Teresa Jetts Work Phone: [facility] 07-12-2023 18:03-0500 Diastolic blood pressure 73 mm[Hg] DO Teresa Kuns Work Phone: [facility] 07-12-2023 18:03-0500 Heart rate 76 /min DO Teresagorge Fraustos Work Phone: [facility] 07-12-2023 18:03-0500 Respiratory rate 20 /min DO Teresa Fraustos Work Phone: [facility] 07-12-2023 18:03-0500 SaO2% (BldA) [Mass fraction] 98 % DO Teresa Jetts Work Phone: [facility] 07-12-2023 18:03-0500 Systolic blood pressure 125 mm[Hg] DO Teresagorge Fraustos Work Phone: [facility] 07-12-2023 16:15-0500 Body height 182.88 cm DO Teresa Lynch Work Phone: [facility] 07-12-2023 16:15-0500 Body temperature 98.9 [degF] DO Teresa Lynch Work Phone: [facility] 07-12-2023 16:15-0500 Body weight 99.25 kg DO Teresa Lynch Work Phone: [facility] 06-02-2023 10:56-0500 Blood Pressure Location Yeyo ROWE [facility] 06-02-2023 10:56-0500 Body temperature 96.98 [degF] Yeyo ROWE [facility] 06-02-2023 10:56-0500 Diastolic blood pressure 84 mm[Hg] Yeyo ROWE [facility] 06-02-2023 10:56-0500 Heart rate 68 /min Yeyo ROWE [facility] 06-02-2023 10:56-0500 Systolic blood pressure 124 mm[Hg] Yeyo ROWE [facility] 04-06-2023 13:15-0400 Body height 180.34 cm eTresa Lynch Other [employer] Other 04-06-2023 13:15-0400 Body mass index (BMI) [Ratio] 29.43 kg/m2 Teresa Lynch Other [employer] Other 04-06-2023 13:15-0400 Body weight 95.71 kg Teresa Lynch Other [employer] Other 04-06-2023 13:15-0400 Diastolic blood pressure 70 mm[Hg] Teresa Lynch Other [employer] Other 04-06-2023 13:15-0400 Respiratory rate 18 /min Teresa Lynch Other [employer] Other 04-06-2023 13:15-0400 SaO2% (BldA) [Mass fraction] 97 % Teresa Lynch Other [employer] Other 04-06-2023 13:15-0400 Systolic blood pressure 100 mm[Hg] Teresa Lynch Other [employer] Other 03-15-2023 08:30-0400 Body height 180.34 cm Teresa Lynch Other [employer] Other 03-15-2023 08:30-0400 Body mass index (BMI) [Ratio] 29.01 kg/m2 Teresa Lynch Other [employer] Other 03-15-2023 08:30-0400 Body weight 94.35 kg Teresa Lynch Other [employer] Other 03-15-2023 08:30-0400 Diastolic blood pressure 62 mm[Hg] Teresa Lynch Other [employer] Other 03-15-2023 08:30-0400 Respiratory rate 16 /min Teresa Lynch Other [employer] Other 03-15-2023 08:30-0400 SaO2% (BldA) [Mass fraction] 97 % Teresa Lynch Other [employer] Other 03-15-2023 08:30-0400 Systolic blood pressure 88 mm[Hg] Teresa Lynch Other [employer] Other 02-15-2023 10:04-0400 Body height 182.88 cm Teresa Lynch Work Phone: [employer] [employer] [facility] [employer] DO Work Phone: 02-15-2023 10:04-0400 Body mass index (BMI) [Ratio] 28.62 kg/m2 Teresa Fraustojoe Work Phone: [facility] [facility] DO Work Phone: 02-15-2023 10:04-0400 Body surface area Derived from formula 2.18 m2 Teresa Lynch Work Phone: [facility] [employer] DO Work Phone: 02-15-2023 10:04-0400 Body weight 95.71 kg Teresa Mari Lynch Work Phone: [facility] [facility] DO Work Phone: 02-15-2023 10:04-0400 Diastolic blood pressure 70 mm[Hg] Teresa Fraustos Work Phone: [facility] DO Work Phone: 02-15-2023 10:04-0400 Heart rate 76 /min Teresa Fraustos Work Phone: [facility] DO Work Phone: 02-15-2023 10:04-0400 Systolic blood pressure 102 mm[Hg] Teresa Fraustos Work Phone: [facility] [facility] DO Work Phone: 01-30-2023 10:23-0400 Blood Pressure Location Yeyoneel ROWE [facility] 01-30-2023 10:23-0400 Diastolic blood pressure 74 mm[Hg] Yeyo ROWE [facility] 01-30-2023 10:23-0400 Heart rate 68 /min Yeyo ROWE [facility] 01-30-2023 10:23-0400 Respiratory rate 16 /min Yeyo ROWE [facility] 01-30-2023 10:23-0400 Systolic blood pressure 130 mm[Hg] Yeyo ROWE [facility] 01-11-2023 15:08-0400 Body height 180.34 cm Teresa Guerra Jetts Work Phone: [facility] 600 DO Work Phone: 01-11-2023 15:08-0400 Body mass index (BMI) [Ratio] 30.13 kg/m2 Teresa Lynch Work Phone: [facility] 600 DO Work Phone: 01-11-2023 15:08-0400 Body surface area Derived from formula 2.18 m2 Teresa Lynch [facility] Phone: [facility] Work Phone: 01-11-2023 15:08-0400 Body weight 97.98 kg Teresa Lynch Work Phone: [facility] 600 DO Work Phone: 01-11-2023 15:08-0400 Diastolic blood pressure 86 mm[Hg] Teresa [facility]: [facility] Work Phone: 01-11-2023 15:08-0400 Heart rate 74 /min Teresa Lynch Work Phone: [facility] 600 DO Work Phone: 01-11-2023 15:08-0400 Systolic blood pressure 122 mm[Hg] Teresa Lynch [facility]: [facility] Work Phone: 12-01-2022 12:45-0400 Body height 180.34 cm Teresa Lynch Other [facility] [employer] Other 12-01-2022 12:45-0400 Body mass index (BMI) [Ratio] 29.73 kg/m2 Teresa Lynch Other [facility] [employer] Other 12-01-2022 12:45-0400 Body weight 96.71 kg Teresa Lynch Other [employer] Other 12-01-2022 12:45-0400 Diastolic blood pressure 70 mm[Hg] Teresa Lynch Other [employer] Other 12-01-2022 12:45-0400 Respiratory rate 18 /min Teresa Lynch Other [employer] Other 12-01-2022 12:45-0400 SaO2% (BldA) [Mass fraction] 94 % Teresa Lynch Other [employer] Other 12-01-2022 12:45-0400 Systolic blood pressure 122 mm[Hg] Teresa Lynch Other [employer] Other 11-23-2022 11:38-0400 Blood Pressure Location Yeyo [employer] [facility] 11-23-2022 11:38-0400 Diastolic blood pressure 85 mm[Hg] [employer] [facility] 11-23-2022 11:38-0400 Heart rate 76 /min [employer] [facility] 11-23-2022 11:38-0400 Systolic blood pressure 130 mm[Hg] Yeyo ROWE [facility] 07-04-2022 10:30-0500 Body height 180.34 cm Teresa Lynch Other [employer] Other 07-04-2022 10:30-0500 Body mass index (BMI) [Ratio] 29.43 kg/m2 Teresa Lynch Other [employer] Other 07-04-2022 10:30-0500 Body weight 95.71 kg Teresa Lynch Other [employer] Other 07-04-2022 10:30-0500 Diastolic blood pressure 86 mm[Hg] Teresagorge Lynch Other [employer] Other 07-04-2022 10:30-0500 Respiratory rate 16 /min Teresa Lynch Other [employer] Other 07-04-2022 10:30-0500 Systolic blood pressure 146 mm[Hg] Teresa Rory Other [employer] Other 02-15-2022 13:45-0400 Body height 180.34 cm Teresa Fraustojoe Other [employer] Other 02-15-2022 13:45-0400 Body mass index (BMI) [Ratio] 30.12 kg/m2 Teresa Fraustojoe Other [employer] Other 02-15-2022 13:45-0400 Body weight 97.98 kg Teresa Lynch Other [employer] Other 02-15-2022 13:45-0400 Diastolic blood pressure 62 mm[Hg] Teresa Rory Other [employer] Other 02-15-2022 13:45-0400 Respiratory rate 16 /min Teresa Fraustojoe Other [employer] Other 02-15-2022 13:45-0400 SaO2% (BldA) [Mass fraction] 96 % Teresa Lynch Other [employer] Other 02-15-2022 13:45-0400 Systolic blood pressure 100 mm[Hg] Teresa Lynch Other [facility] [employer] Other 10-26-2021 10:01-0400 Body height 180.34 cm Teresagorge Lynch Work Phone: [facility] 250 DO Work Phone: 10-26-2021 10:01-0400 Body mass index (BMI) [Ratio] 29.99 kg/m2 Teresa Lynch Work Phone: [facility] 250 DO Work Phone: 10-26-2021 10:01-0400 Body surface area Derived from formula 2.17 m2 Teresa Mari Lynch Work Phone: [facility] 250 DO Work Phone: 10-26-2021 10:01-0400 Body weight 97.52 kg Teresa Lynch Work Phone: [facility] 250 DO Work Phone: 10-26-2021 10:01-0400 Diastolic blood pressure 70 mm[Hg] Teresa Mari Lynch Work Phone: [facility] 250 DO Work Phone: 10-26-2021 10:01-0400 Heart rate 68 /min Teresa Lynch Work Phone: [facility] 250 DO Work Phone: 10-26-2021 10:01-0400 Systolic blood pressure 104 mm[Hg] Teresa Mari Fraustos Work Phone: [facility] 250 DO Work Phone: 10-19-2021 12:20-0400 Body height 180.34 cm Amina Fagan Other [employer] Other 10-19-2021 12:20-0400 Body mass index (BMI) [Ratio] 30.65 kg/m2 Amina Fagan Other [employer] Other 10-19-2021 12:20-0400 Body temperature 96.8 [degF] Amina Fagan Other [employer] Other 10-19-2021 12:20-0400 Body weight 99.7 kg Amina Fagan Other [employer] Other 10-19-2021 12:20-0400 Diastolic blood pressure 71 mm[Hg] Amina Fagan Other [employer] Other 10-19-2021 12:20-0400 Respiratory rate 18 /min Amina Fagan Other [employer] Other 10-19-2021 12:20-0400 SaO2% (BldA) [Mass fraction] 98 % Amina Fagan Other [employer] Other 10-19-2021 12:20-0400 Systolic blood pressure 111 mm[Hg] Amina Fagan Other [employer] Other 07-27-2021 14:00-0500 Body height 180.34 cm Teresa Lynch Other [employer] Other 07-27-2021 14:00-0500 Body mass index (BMI) [Ratio] 30.4 kg/m2 Teresa Lynch Other [employer] Other 07-27-2021 14:00-0500 Body weight 98.88 kg Teresa Lynch Other [employer] Other 07-27-2021 14:00-0500 Diastolic blood pressure 76 mm[Hg] Teresa Lynch Other [employer] Other 07-27-2021 14:00-0500 Respiratory rate 18 /min Teresa Lynch Other [employer] Other 07-27-2021 14:00-0500 SaO2% (BldA) [Mass fraction] 98 % Teresa Lynch Other [employer] Other 07-27-2021 14:00-0500 Systolic blood pressure 112 mm[Hg] Teresa Lynch Other [employer] Other Encounters Encounter Date Encounter Type Care Provider Facility Start: 01-31-2025 ambulatory Yeyo Ley ty:[facility] Start: 11-05-2024 End: 11-05-2024 ambulatory Teresa Lynch DO Work Phone: [facility] Work Phone: Start: 11-05-2024 End: 11-05-2024 Teresa Lynch DO Work Phone: [facility] [place] Work Phone: Start: 11-05-2024 End: 11-05-2024 ambulatory Teresa Lynch DO Work Phone: [facility] Work Phone: Start: 11-05-2024 End: 11-05-2024 Teresa Lynch DO Work Phone: [facility] [place] Work Phone: Start: 10-26-2024 End: 10-26-2024 Patient encounter procedure Teresa Fraustojoe DO Work Phone: [facility] [place] Work Phone: Start: 10-26-2024 End: 10-26-2024 Teresa Lynch DO Work Phone: [facility] [place] Work Phone: Start: 10-26-2024 End: 10-26-2024 ambulatory Teresa Lynch DO Work Phone: [facility] Work Phone: Start: 10-10-2024 End: 10-11-2024 ambulatory Teresa Lynch Facility:[facility] Start: 10-10-2024 End: 10-11-2024 Evaluation and management of inpatient Teresa Lynch DO Work Phone: [facility] [place] [facility] Work Phone: Start: 10-10-2024 observation encounter Teresa ramirez DO Work Phone: [facility] Work Phone: Start: 10-10-2024 End: 10-11-2024 Teresa Lynch DO Work Phone: [facility] [place] [facility] Work Phone: Start: 10-04-2024 ambulatory MARYBEL Ley ty:[facility] Start: 09-27-2024 End: 09-27-2024 ambulatory Yeyo ROWE Facility:[facility] Start: 08-30-2024 End: 08-30-2024 ambulatory Teresa Lynch DO Work Phone: [facility] Work Phone: Start: 08-30-2024 End: 08-30-2024 Patient encounter procedure Teresa Rory DO Work Phone: [facility] Family Medicine [place] Work Phone: Start: 08-30-2024 End: 08-30-2024 Teresa Lynch DO Work Phone: [facility] Family Medicine [place] Work Phone: Start: 08-11-2024 Non-patient / Non-visit Teresa Lynch DO Work Phone: [facility] Physician [facility] [place] [place] Work Phone: Start: 08-11-2024 Teresa Lynch DO Work Phone: [facility] Physician [facility] [place] Work Phone: Start: 08-11-2024 End: 08-13-2024 Evaluation and management of inpatient Teresa Lynch DO Work Phone: [facility] [place] [facility] Work Phone: Start: 08-11-2024 End: 08-13-2024 Teresa Lynch DO Work Phone: [facility] [place] [facility] Work Phone: Start: 08-02-2024 End: 08-02-2024 ambulatory MARYBEL VANG Facility:[facility] Start: 08-02-2024 End: 08-02-2024 Patient encounter procedure MARYBEL VANG [facility] Start: 07-24-2024 Non-patient / Non-visit Teresa Lynch DO Work Phone: [facility] Physician [facility] Work Phone: Start: 07-23-2024 End: 07-23-2024 Discharged Recurring Teresa Lynch DO Work Phone: [facility]-Physical Therapy [place] Start: 07-23-2024 Registered Recurring Teresa diaz DO Work Phone: [facility]-Physical Therapy [place] Start: 07-23-2024 End: 07-23-2024 ambulatory Teresa Lynch DO Work Phone: [facility] Work Phone: Start: 05-27-2024 End: 05-27-2024 ambulatory Yeyo ROWE [facility] Start: 05-27-2024 End: 05-27-2024 Lab Drop off Yeyo ROWE [facility] Start: 05-27-2024 End: 05-27-2024 ambulatory Yeyo ROWE Facility:[facility] Start: 05-27-2024 End: 05-27-2024 Patient encounter procedure Yeyo ROWE [facility] Start: 05-07-2024 End: 05-07-2024 Patient encounter procedure Teresa Rory DO Work Phone: [facility] [place] Work Phone: Start: 04-24-2024 End: 04-24-2024 ambulatory Kait Dan MD Work Phone: [facility] Work Phone: Start: 04-24-2024 End: 04-24-2024 Patient encounter procedure Kait Dan MD Work Phone: [facility] Work Phone: Start: 04-23-2024 Non-patient / Non-visit Kait Dan MD Work Phone: [facility] Work Phone: Start: 04-23-2024 End: 04-23-2024 Admission to same day surgery center Kait Dan MD Work Phone: [facility]Digest[facility] Work Phone: Start: 04-23-2024 End: 04-23-2024 ambulatory Kait Dan MD Work Phone: [facility] Work Phone: Start: 04-19-2024 Non-patient / Non-visit Kait Dan MD Work Phone: [facility] Family [facility] Work Phone: Start: 04-04-2024 End: 04-04-2024 ambulatory MD Kait Dan Work Phone: [facility] Work Phone: Start: 04-04-2024 End: 04-04-2024 Patient encounter procedure MD Kait Dan Work Phone: [facility] Physician [facility] Work Phone: Start: 03-29-2024 Non-patient / Non-visit MD Jeremi Dan Work Phone: [facility] Physician [facility] Work Phone: Start: 03-22-2024 End: 03-22-2024 Telephone encounter Moncho Jaime Call Mal blum Comment on above: Blood Sugar Problem (High blood sugars) Start: 03-21-2024 End: 03-21-2024 ambulatory MD Kait Dan Work Phone: [facility] Work Phone: Comment on above: History of right bel ow knee amputation ([facility]-HCC) (Primary Dx) Start: 03-21-2024 End: 03-21-2024 Patient encounter procedure MD Kait Dan Work Phone: [facility] Gastroenterology Work Phone: Start: 03-21-2024 End: 03-21-2024 MD Kait Dan Work Phone: [facility] Work Phone: Start: 03-19-2024 End: 03-19-2024 ambulatory Guero Tam DO Work Phone: [facility] Comment on above: Diabetic polyneuropa thy associated with type 2 diabetes mellitus ([facility]-HCC) (Primary Dx); Encounter for orthopedic aftercare following surgical amputation; Other abnormalities of gait and mobility; Restless leg syndrome Start: 03-15-2024 End: 03-15-2024 ambulatory Guero Tam DO Work Phone: [facility]icians Internal Medicine - Family Medicine Comment on above: Diabetic polyneuropa thy associated with type 2 diabetes mellitus (CMS-HCC) (Primary Dx); Disorientation; Other abnormalities of gait and mobility; Status post partial amputation of right foot ([facility]-HCC); Atherosclerosis of [place] coronary artery of [place] heart without angina pectoris; Atrial fibrillation ([facility]); Primary hypertension Start: 03-15-2024 End: 03-15-2024 Telephone encounter Nancy Kim [facility] Start: 03-12-2024 ambulatory [facility] Start: 03-10-2024 Non-patient / Non-visit MD Jeremi Dan Work Phone: [facility] Physician [facility] Gastroenterology Work Phone: Start: 03-10-2024 MD Kait richmond Work Phone: [facility] Physician [facility] Gastroenterology Work Phone: Start: 03-09-2024 Non-patient / Non-visit MD Jeremi Dan Work Phone: [facility] Physician [facility] Work Phone: Start: 03-09-2024 MD Kait richmond Work Phone: [facility] Work Phone: Start: 03-08-2024 End: 03-13-2024 Evaluation and management of inpatient MD Kait Dna Work Phone: [facility] Work Phone: Start: 03-08-2024 End: 03-13-2024 MD Kait Dan Work Phone: [facility] [place] [facility] Work Phone: Start: 03-08-2024 End: 03-10-2024 Emergency department patient visit MIKE MONTES [facility] Amb[facility] Start: 03-05-2024 Non-patient / Non-visit MD Jeremi Dan Work Phone: [facility] Work Phone: Start: 03-05-2024 MD Kait richmond Work Phone: [facility] Work Phone: Start: 03-04-2024 End: 03-06-2024 Evaluation and management of inpatient MD Kait Dan Work Phone: [facility] [place] [facility] Work Phone: Start: 03-04-2024 End: 03-06-2024 MD Kait Dan Work Phone: [facility] [place] [facility] Work Phone: Start: 03-03-2024 Evaluation and management of inpatient MD Kait Dan Work Phone: [facility] [place] [facility] Work Phone: Start: 03-03-2024 observation encounter MD Vikas Dan Work Phone: [facility] Work Phone: Start: 02-29-2024 End: 02-29-2024 Postop follow up visit related to original px Mike Montes MD [facility] Comment on above: PAD (peripheral iliana ry disease) ([facility]-HCC) (Primary Dx) Start: 02-28-2024 End: 02-28-2024 ambulatory Guero Tam DO Work Phone: [facility] Comment on above: Encounter for orthop edic aftercare following surgical amputation (Primary Dx); Cigarette smoker; Diabetic polyneuropathy associated with type 2 diabetes mellitus (CMS-HCC); Other abnormalities of gait and mobility; Muscle spasm Start: 02-23-2024 End: 02-28-2024 ambulatory [facility] Comment on above: Encounter for orthop edic aftercare following surgical amputation (Primary Dx); Other abnormalities of gait and mobility; BPH with obstruction/lower urinary tract symptoms; Diabetic polyneuropathy associated with type 2 diabetes mellitus (CMS-HCC); Atherosclerosis of [place] coronary artery of [place] heart without angina pectoris; Heart failure, unspecified HF chronicity, unspecified heart failure type (CMS-HCC); Primary hypertension; Peripheral arterial disease (CMS-HCC); Chronic obstructive pulmonary disease, unspecified COPD type (CMS-HCC); Gastroesophageal reflux disease, unspecified whether esophagitis present; Muscle weakness (generalized) Start: 02-12-2024 End: 02-21-2024 Evaluation and management of inpatient MD Mike Montes Facility[place] Start: 02-12-2024 ambulatory Yeyo Ley ty:[facility] Start: 02-12-2024 ambulatory Mike Ruizi ty:[facility] Start: 02-12-2024 End: 02-21-2024 Evaluation and management of inpatient Mike Montes [facility] Start: 02-08-2024 Non-patient / Non-visit MD Jeremi Dan Work Phone: [facility] Physician [facility] Work Phone: Start: 02-08-2024 MD Kait richmond Work Phone: [facility] Physician [facility] Work Phone: Start: 02-01-2024 End: 02-01-2024 Clinisync Result Encounter Mike Montes MD Work Phone: [facility] External Department Unsolicited Start: 02-01-2024 End: 02-01-2024 Clinisync Result Encounter Mike Montes MD Work Phone: [facility] External Department Unsolicited Start: 02-01-2024 Non-patient / Non-visit MD Jeremi Dan Work Phone: [facility] Work Phone: Start: 02-01-2024 MD Kait richmond Work Phone: [facility] Work Phone: Start: 01-24-2024 Non-patient / Non-visit MD Jeremi Dan Work Phone: [facility] Physician [facility] [place] Work Phone: Start: 01-24-2024 MD Kait richmond Work Phone: [facility] Physician [facility] [place] Work Phone: Start: 01-18-2024 End: 01-18-2024 Office outpatient visit 25 minutes Mike Montes MD Work Phone: [facility] Comment on above: 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 (CMS-HCC) (Primary Dx); Cigarette smoker Start: 01-17-2024 End: 01-17-2024 ambulatory [facility] Start: 01-17-2024 End: 01-17-2024 Subsequent hospital visit by physician Fabiana Allred Echo/Vasc Room 2 [facility] Comment on above: Shortness of breath Start: 01-08-2024 End: 01-08-2024 ambulatory MD Mike Montes Facility:[facility] Start: 01-03-2024 Non-patient / Non-visit MD Jeremi Dan Work Phone: [facility] Physician [facility] [place] Work Phone: Start: 01-03-2024 MD Kait richmond Work Phone: [facility] Physician [facility] [place] Work Phone: Start: 01-01-2024 End: 01-01-2024 ambulatory [facility]ulatory Start: 01-01-2024 End: 01-01-2024 Encounter for preprocedural cardiovascular examination Critical access hospital Ambulatory Start: 12-31-2023 Non-patient / Non-visit MD Jeremi Dan Work Phone: [facility] Work Phone: Start: 12-31-2023 MD Kait richmond Work Phone: [facility] Work Phone: Start: 12-30-2023 Non-patient / Non-visit MD Jeremi Dan Work Phone: [facility] Work Phone: Start: 12-30-2023 MD Kait richmond Work Phone: [facility] Work Phone: Start: 12-28-2023 Non-patient / Non-visit MD Jeremi Dan Work Phone: [facility] [place] Work Phone: Start: 12-28-2023 MD Kait richmond Work Phone: [facility] Physician [facility] [place] Work Phone: Start: 12-25-2023 Non-patient / Non-visit MD Jeremi Dan Work Phone: [facility] Physician [facility] [place] Work Phone: Start: 12-25-2023 MD Kait richmond Work Phone: [facility] [place] Work Phone: Start: 12-23-2023 Non-patient / Non-visit MD Jeremi Dan Work Phone: [facility] Work Phone: Start: 12-23-2023 MD Kait richmond Work Phone: [facility] Work Phone: Start: 12-22-2023 Non-patient / Non-visit MD Jeremi Dan Work Phone: [facility] Work Phone: Start: 12-22-2023 MD Kait richmond Work Phone: [facility] Work Phone: Start: 12-21-2023 Non-patient / Non-visit MD Jeremi Dan Work Phone: [facility] Work Phone: Start: 12-21-2023 MD Kait richmond Work Phone: [facility] Work Phone: Start: 12-21-2023 End: 12-21-2023 Office outpatient visit 25 minutes Mike Montes MD Work Phone: [facility] Physicians Vascular Surgery and Wound Care Comment on above: 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 (CMS-HCC) (Primary Dx) Start: 12-21-2023 End: 12-21-2023 [facility] Start: 12-15-2023 End: 12-15-2023 ambulatory DO Teresa Lynch Work Phone: [facility] Work Phone: Start: 12-15-2023 End: 12-15-2023 Departed Referred DO Teresa Lynch Work Phone: [facility] Start: 12-15-2023 End: 12-15-2023 MD Kait Dan Work Phone: [facility] Start: 12-10-2023 Non-patient / Non-visit MD Jeremi Dan Work Phone: [facility] Work Phone: Start: 12-10-2023 MD Kait richmond Work Phone: [facility] Work Phone: Start: 12-10-2023 Non-patient / Non-visit DO Phillip an Jetts Work Phone: [facility] Work Phone: Start: 12-10-2023 MD Kait richmond Work Phone: [facility] Work Phone: Start: 12-09-2023 Non-patient / Non-visit DO Phillip an Jetts Work Phone: [facility] Work Phone: Start: 12-09-2023 MD Kait richmond Work Phone: [facility] Work Phone: Start: 11-30-2023 End: 11-30-2023 Postop follow up visit related to original px Mike Montes MD Work Phone: [facility]icians V[facility] Surgery [facility] W[facility] Comment on above: 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 (CMS-HCC) (Primary Dx); Cigarette smoker motivated to quit Start: 11-30-2023 End: 11-30-2023 ambulatory [facility]KE MONTES [facility] Comment on above: 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) Start: 11-23-2023 End: 11-23-2023 ambulatory [facility] Start: 11-15-2023 End: 11-15-[address] [facility] Start: 11-15-2023 Non-patient / Non-visit DO Phillip Lynch Work Phone: [facility] Work Phone: Start: 11-14-2023 End: 11-14-2023 Evaluation and management of inpatient [facility] Start: 11-10-2023 End: 11-10-2023 Telephone encounter Franny Yu MD Work Phone: [facility] Start: 11-07-2023 End: 11-14-2023 Evaluation and management of inpatient [facility] Start: 11-07-2023 End: 11-19-2023 ambulatory Guero Tam DO Work Phone: [facility] Comment on above: Peripheral arterial disease ([facility]) (Primary Dx); Delayed surgical wound healing of foot amputation stump ([facility]); Other abnormalities of gait and mobility; Status post partial amputation of right foot ([facility]); Pressure ulcer of right ankle, stage 3 ([facility]); Type 2 diabetes mellitus with stage 4 chronic kidney disease, without long-term current use of insulin ([facility]) Start: 11-07-2023 End: 11-14-2023 Evaluation and management of inpatient MIKE MONTES [facility] Start: 11-03-2023 End: 11-10-2023 ambulatory Guero Mckayleeasim Work Phone: [facility] Comment on above: Status post partial amputation of right foot (CMS-HCC) (Primary Dx); Pressure ulcer of right ankle, stage 3 (CMS-HCC); Other abnormalities of gait and mobility; Delayed surgical wound healing of foot amputation stump (CMS-HCC) Start: 10-25-2023 End: 10-30-2023 ambulatory Guero Tam DO Work Phone: [facility] Comment on above: Status post partial amputation of right foot (CMS-HCC) (Primary Dx); Osteomyelitis of right foot, unspecified type (CMS-HCC); Muscle weakness (generalized); Other abnormalities of gait and mobility; Chronic obstructive pulmonary disease, unspecified COPD type (CMS-HCC); Peripheral arterial disease (CMS-HCC) Start: 10-24-2023 Encounter for preprocedural cardiovascular examination [facility] Start: 10-24-2023 End: 10-24-2023 Office outpatient visit 25 minutes Raulito Inman MD Work Phone: [facility] Comment on above: History of PTCA; Hyperlipidemia, unspecified hyperlipidemia type; Encounter for pre-operative cardiovascular clearance; Former smoker Start: 10-24-2023 End: 10-24-2023 Patient encounter status Raulito Inman MD Work Phone: [facility] Work Phone: Start: 10-23-2023 End: 10-23-2023 ambulatory MD Mike Montes [place] Start: 10-23-2023 End: 10-23-2023 Patient encounter procedure Mike Montes [facility] Start: 10-19-2023 End: 10-19-2023 ambulatory MD Mike Montes Facility:[facility] Start: 10-19-2023 End: 10-19-2023 Patient encounter procedure Mike Montes [facility] Start: 10-18-2023 End: 10-18-2023 Telephone encounter [...] Status post partial amputation of right foot ([facility]); Type 2 diabetes mellitus with stage 4 chronic kidney disease, without long-term current use of insulin ([facility]); Atherosclerosis of [place] coronary artery of [place] heart without angina pectoris; Bacterial sepsis ([facility]); Other acute osteomyelitis of right foot ([facility]); Chronic obstructive pulmonary disease, unspecified COPD type ([facility]); Cigarette smoker; BPH with obstruction/lower urinary tract symptoms; Gastroesophageal reflux disease, unspecified whether esophagitis present; Restless leg syndrome; Hyperlipidemia, unspecified hyperlipidemia type; Carpal tunnel syndrome, unspecified laterality; Heart failure, unspecified HF chronicity, unspecified heart failure type ([facility]) Start: 10-06-2023 Non-patient / Non-visit DO Phillip an Kuns Work Phone: [facility] Work Phone: Start: 10-05-2023 End: 10-05-2023 ambulatory DO Teresa Fraustos Work Phone: [facility] Work Phone: Start: 10-05-2023 End: 10-05-2023 Departed Referred DO Teresa Fraustos Work Phone: [facility] Start: 10-05-2023 Non-patient / Non-visit DO Phillip an Kuns Work Phone: [facility] Work Phone: Start: 10-04-2023 Non-patient / Non-visit DO Phillip an Kuns Work Phone: [facility] Work Phone: Start: 10-03-2023 Non-patient / Non-visit DO Phillip an Kuns Work Phone: [facility] Work Phone: Start: 10-02-2023 End: 10-02-2023 ambulatory DO Teresa Fraustos Work Phone: [facility] Work Phone: Start: 10-02-2023 End: 10-02-2023 Departed Referred DO Teresagorge Fraustos Work Phone: [facility] Start: 10-02-2023 Non-patient / Non-visit DO Phillip an Kuns Work Phone: [facility] Work Phone: Start: 10-01-2023 Non-patient / Non-visit DO Phillip an Kuns Work Phone: [facility] Work Phone: Start: 09-30-2023 Non-patient / Non-visit DO Phillip an Kuns Work Phone: [facility] Work Phone: Start: 09-27-2023 Non-patient / Non-visit DO Phillip an Kuns Work Phone: [facility] Work Phone: Start: 09-21-2023 End: 09-21-2023 ambulatory DO Teresa Fraustos Work Phone: [facility] Work Phone: Start: 09-21-2023 End: 09-21-2023 Departed Referred DO Teresa Fraustos Work Phone: [facility] Start: 09-21-2023 Non-patient / Non-visit DO Phillip an Kuns Work Phone: [facility] Work Phone: Start: 09-18-2023 Non-patient / Non-visit DO Phillip an Kuns Work Phone: [facility] Work Phone: Start: 09-08-2023 End: 09-08-2023 ambulatory [facility] Start: 09-08-2023 End: 09-08-2023 Patient encounter procedure Yeyo Viktoria [facility]EDAD [facility] Start: 08-10-2023 Non-patient / Non-visit DO Phillip an Kuns Work Phone: [facility] Work Phone: Start: 08-08-2023 Non-patient / Non-visit DO Phillip an Kuns Work Phone: [facility] Work Phone: Start: 08-07-2023 Non-patient / Non-visit DO Phillip an Kuns Work Phone: [facility] Work Phone: Start: 08-06-2023 Non-patient / Non-visit DO Phillip an Kuns Work Phone: [facility] Work Phone: Start: 08-05-2023 Non-patient / Non-visit DO Phillip an Kuns Work Phone: [facility] Work Phone: Start: 08-04-2023 Non-patient / Non-visit DO Phillip an Kuns Work Phone: [facility] Work Phone: Start: 08-03-2023 Non-patient / Non-visit DO Phillip an Kuns Work Phone: [facility] Work Phone: Start: 07-31-2023 Registered Recurring DO Teresa Kuns Work Phone: [facility]Infusion Therapy - O/P Work Phone: Start: 07-26-2023 Non-patient / Non-visit DO Phillip Lynch Work Phone: [facility] [employer] Work Phone: Start: 07-12-2023 End: 07-12-2023 Emergency department patient visit DO Teresa Lynch Work Phone: [facility]Emergency Room Work Phone: Start: 07-07-2023 End: 07-07-2023 ambulatory Teresa Lynch Other [facility] Other Start: 07-07-2023 Telephone encounter Teresa Lynch [facility] Start: 07-03-2023 End: 07-03-2023 ambulatory Yeyo ROWE Facility:[facility] Start: 06-26-2023 End: 06-26-2023 ambulatory Teresa Lynch Other [facility] Other Start: 06-26-2023 Telephone encounter Teresa Lynch [facility] Start: 06-02-2023 End: 06-02-2023 ambulatory Yeyo ROWE Facility:[facility] Start: 06-02-2023 End: 06-02-2023 Patient encounter procedure [facility]o ROWE [facility] Start: 05-16-2023 End: 05-16-2023 ambulatory Teresa Lynch Other [facility] Other Start: 05-16-2023 Telephone encounter Teresagorge Lynch [facility] Start: 05-03-2023 End: 05-03-2023 ambulatory Yeyo ROWE Facility:[facility] Start: 05-03-2023 End: 05-03-2023 Patient encounter procedure Yeyo ROWE [facility] Start: 04-28-2023 End: 04-28-2023 ambulatory Teresa Jettjoe Other [employer] Other Start: 04-28-2023 Telephone encounter Teresa Lynch [facility] [place] Start: 04-18-2023 End: 04-18-2023 ambulatory Yeyo ROWE Facility:[facility] Start: 04-18-2023 End: 04-18-2023 Patient encounter procedure Yeyo Viktoria SOLEDAD [facility] [place] Start: 04-17-2023 ambulatory Yeyo Ruizi ty:[facility] Start: 04-13-2023 End: 04-13-2023 ambulatory Yeyo Viktoria SOLEDAD Facility:[id number] Start: 04-11-2023 End: 04-11-2023 ambulatory Teresa Fraustojoe Other [employer] Other Start: 04-11-2023 Telephone encounter Teresa Lynch [facility] [place] Start: 04-06-2023 End: 04-06-2023 ambulatory Teresagorge Lynch Other [employer] Other Start: 04-06-2023 Encounter for other preprocedural examination Teresa Rory [facility] [place] Start: 04-06-2023 Office outpatient vi sit 25 minutes Teresagorge Lynch [facility] [place] Start: 03-28-2023 End: 03-28-2023 ambulatory Teresa Lynch Other [employer] Other Start: 03-28-2023 Telephone encounter Teresagorge Lynch [facility] [place] Start: 03-20-2023 ambulatory Yeyo Viktoria SOLEDAD Facili ty:[facility] Start: 03-15-2023 End: 03-15-2023 ambulatory Yeyo ROWE [facility] [employer] Other Start: 03-15-2023 Office outpatient vi sit 25 minutes Teresa Lynch [facility] Start: 03-10-2023 End: 03-10-2023 ambulatory Teresa Lynch Other [facility] Other Start: 03-10-2023 Telephone encounter [facility] Start: 02-15-2023 Office outpatient vi sit 15 minutes Teresa Lynch Work Phone: [facility] 250 DO Work Phone: Start: 02-15-2023 ambulatory Dolores [place] Facility:[id number] Start: 02-14-2023 End: 02-14-2023 Patient encounter procedure Yeyo ROWE [facility] Start: 02-08-2023 End: 02-08-2023 Patient encounter procedure Yeyo ROWE [facility] Start: 01-30-2023 End: 01-30-2023 Patient encounter procedure Yeyo ROWE [facility] Start: 01-25-[address] Teresa Lynch Facility:[id number] Start: 01-17-2023 End: 01-17-2023 ambulatory Teresa Lynch Other [facility] Other Start: 01-17-2023 Telephone encounter Teresa Lynch [facility] Start: 01-11-2023 Office outpatient vi sit 25 minutes Teresa Lynch Work Phone: [facility] 600 DO Work Phone: Start: 01-11-2023 ambulatory Doloresangie [place] Facility:[id number] Start: 12-28-2022 End: 12-28-2022 Patient encounter procedure Yeyo ROWE [facility] [place] Start: 12-01-2022 End: 12-01-2022 ambulatory Teresa Lynch Other [employer] Other Start: 12-01-2022 Office outpatient vi sit 25 minutes Teresa Lynch [facility] [place] Start: 11-23-2022 End: 11-23-2022 Patient encounter procedure Yeyo ROWE [facility] [place] Start: 10-07-2022 End: 10-07-2022 ambulatory Teresa Lynch Other [employer] Other Start: 10-07-2022 Telephone encounter Teresa Lynch [facility] Start: 09-27-2022 End: 09-27-2022 ambulatory DO Teresa Lynch Work Phone: [facility] Work Phone: Start: 09-27-2022 End: 09-27-2022 Patient encounter procedure DO Teresa Lynch Work Phone: [facility] [place] Work Phone: Start: 09-21-2022 End: 09-21-2022 ambulatory Teresa Lynch Other [employer] Other Start: 09-21-2022 Telephone encounter Teresa Lynch [facility] [place] Start: 09-14-2022 End: 09-14-2022 ambulatory Teresa Lynch Other [employer] Other Start: 09-14-2022 Telephone encounter Teresa Lynch [facility] [place] Start: 09-02-2022 End: 09-02-2022 Patient encounter procedure DO Teresa Lynch Work Phone: [facility] [place] Work Phone: Start: 08-25-2022 End: 08-25-2022 ambulatory Doris Barnes Other [employer] Other Start: 08-25-2022 Telephone encounter Doris Barnes [facility] [employer] Start: 08-22-2022 End: 08-22-2022 ambulatory Teresa Lynch Other [employer] Other Start: 08-22-2022 Telephone encounter Teresa Lynch [facility] [place] Start: 08-05-2022 End: 08-05-2022 ambulatory Teresa Lynch Other [employer] Other Start: 08-05-2022 Telephone encounter Teresa Lynch [facility] [place] Start: 08-04-2022 End: 08-04-2022 ambulatory Teresa Lynch Other [employer] Other Start: 08-04-2022 Telephone encounter Teresa Lynch [facility] [place] Start: 07-28-2022 End: 07-28-2022 ambulatory Teresa Fraustojoe Other [employer] Other Start: 07-28-2022 Telephone encounter Teresa Jettjoe [facility] [employer] Start: 07-25-2022 End: 07-25-2022 ambulatory Teresa Lynch Other [employer] Other Start: 07-25-2022 Nursing evaluation o f patient and report Teresa Lynch [facility] [place] Start: 07-19-2022 End: 07-19-2022 ambulatory Teresa Lynch Other [employer] Other Start: 07-19-2022 Telephone encounter Teresa Lynch [facility] [place] Start: 07-15-2022 End: 07-15-2022 ambulatory Teresa Lynch Other [employer] Other Start: 07-15-2022 Telephone encounter Teresa Lycnh [facility] [place] Start: 07-13-2022 End: 07-13-2022 ambulatory Teresa Lynch Other [employer] Other Start: 07-13-2022 Nursing evaluation o f patient and report Teresa Lynch [facility] Start: 07-12-[address] Raulito gutierrez [facility] Facility: Start: 07-05-2022 End: 07-05-2022 ambulatory Teresa Lynch Other [employer] Other Start: 07-05-2022 Telephone encounter Teresa Lynch [facility] Start: 07-05-2022 Rx Renewal Teresa Lynch Work Phone: [facility] 250 DO Work Phone: Start: 07-04-2022 End: 07-04-2022 ambulatory Teresa Lynch Other [employer] Other Start: 07-04-2022 Office outpatient vi sit 25 minutes Teresa Lynch [facility] Start: 06-30-2022 End: 06-30-2022 ambulatory Teresa Lynch Other [employer] Other Start: 06-30-2022 Telephone encounter Teresa Lynch [facility] Start: 05-25-2022 End: 05-25-2022 ambulatory Teresa Lynch Other [employer] Other Start: 05-25-2022 Telephone encounter Teresa Lynch [facility] Start: 04-25-2022 End: 04-25-2022 ambulatory Teresa Lynch Other [employer] Other Start: 04-25-2022 Telephone encounter Teresagorge Lynch [facility] [place] Start: 04-19-2022 End: 04-19-2022 ambulatory Teersagorge Lynch Other [employer] Other Start: 04-19-2022 Telephone encounter Teresagorge Lynch [facility] [place] Start: 03-22-2022 End: 03-22-2022 ambulatory Teresagorge Lynch Other [employer] Other Start: 03-22-2022 Telephone encounter Teresagorge Lynch [facility] [place] Start: 03-01-2022 End: 03-01-2022 ambulatory Teresagorge Lynch Other [employer] Other Start: 03-01-2022 Telephone encounter Teresagorge Fraustojoe [facility] [place] Start: 02-18-2022 End: 02-18-2022 ambulatory Teresagroge Lynch Other [employer] Other Start: 02-18-2022 Telephone encounter Teresagorge Lynch [facility] [place] Start: 02-15-2022 End: 02-15-2022 ambulatory Verona Whaley Other [employer] Other Start: 02-15-2022 Office outpatient vi sit 25 minutes Teresa Lynch [facility] [place] Start: 02-15-2022 Telephone encounter Verona Whaley [facility] Start: 01-21-2022 End: 01-21-2022 ambulatory Teresa Lynch Other [employer] Other Start: 01-21-2022 Telephone encounter Teresa Lynch [facility] [place] Start: 01-19-2022 End: 01-19-2022 ambulatory Teresa Lynch Other [employer] Other Start: 01-19-2022 Telephone encounter Teresa Lynch [facility] [place] Start: 01-13-2022 End: 01-13-2022 ambulatory Teresa Lynch Other [employer] Other Start: 01-13-2022 Telephone encounter Teresa Lynch [facility] [place] Start: 12-23-2021 End: 12-23-2021 ambulatory Teresa Lynch Other [employer] Other Start: 12-23-2021 Telephone encounter Teresa Lynch [facility] [place] Start: 11-24-2021 End: 11-24-2021 ambulatory Teresagorge Lynch Other [employer] Other Start: 11-24-2021 Telephone encounter Teresa Lynch [facility] [place] Start: 11-03-2021 Rx Renewal Teresa Lynch Work Phone: [facility] 250 DO Work Phone: Start: 10-26-2021 Office outpatient vi sit 25 minutes Teresa Mari Jettjoe Work Phone: [facility] 250 DO Work Phone: Start: 10-25-2021 End: 10-25-2021 ambulatory Teresagorge Lynch Other [employer] Other Start: 10-25-2021 Telephone encounter Teresagorge Lynch [facility] [place] Start: 10-19-2021 End: 10-19-2021 ambulatory Aziz Bakhous Other [employer] Other Start: 10-19-2021 Office outpatient vi sit 25 minutes Aziz Bakhous [facility] Start: 10-18-2021 End: 10-18-2021 ambulatory Aziz Bakhous Other [employer] Other Start: 10-18-2021 Telephone encounter Amina Fagan [facility] Start: 10-12-2021 End: 10-13-2021 ambulatory DUARTE HENRY . Facility: Start: 10-08-2021 End: 10-08-2021 ambulatory Teresa Lynch Other [employer] Other Start: 10-08-2021 Telephone encounter Teresa Lynch [facility] [place] Start: 09-22-2021 End: 09-22-2021 ambulatory Teresa Lynch Other [employer] Other Start: 09-22-2021 Telephone encounter Teresa Lynch [facility] [place] Start: 09-21-2021 End: 09-21-2021 ambulatory Teresa Lynch Other [employer] Other Start: 09-21-2021 Telephone encounter Teresa Lynch [facility] [place] Start: 08-09-2021 End: 08-09-2021 ambulatory Teresa Lynch Other [employer] Other Start: 08-09-2021 Telephone encounter Teresa Fraustos [facility] [place] Start: 08-02-2021 End: 08-02-2021 ambulatory Teresa Lynch Other [employer] Other Start: 08-02-2021 Telephone encounter Teresa Fraustos [facility] [place] Start: 07-27-2021 End: 07-27-2021 ambulatory Teresa Fraustos Other [employer] Other Start: 07-27-2021 Office outpatient vi sit 25 minutes Teresa Fraustos [facility] [place] Start: 06-23-2021 End: 06-23-2021 ambulatory Teresa Fraustos Other [facility] Other Start: 06-23-2021 Telephone encounter Teresa Lynch [facility] Start: 06-22-2021 Rx Renewal Teresa Mari Rory Work Phone: [facility] 250 DO Work Phone: Start: 05-03-2021 End: 05-03-2021 ambulatory Teresa Rory Other [facility] Other Start: 05-03-2021 Telephone encounter Teresa FRANKLIN [facility] [place] Procedures Date Procedure Procedure Detail Performing Clinician [...] use now? 1 Result Comment: PERF ORMED BY:[place] [id number] [place], [place] [id number] MEDICAL DIRECTORCLIFFORD LOBATO M.D. Start: 03-04-2024 X-ray [...] Status post partial amputation of right foot ([facility]) Guero Tam DO Work Phone: Start: 10-02-2023 [...] in Unspecified specimen by Gram stain DO Teersa Lynch Work Phone: Start: 08-10-2023 Acid Fast [...] DO Teresa Fraustos Work Phone: Start: 08-04-2023 Wound Culture DO [...] Work Phone: Start: 06-05-2006 Total colonoscopy Teresa Guerra Rory Work Phone: Angiography Mike Montes Comment [...] atus post partial amputation of right foot (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 Guero Chacon Yeelionlong DO Work Phone: History of percutane ous [...] DTaP/Tdap/Td Vaccines (2 - Td or Tdap) [facility] Start: 04-26-2025 Tobacco Counseling Tobacco Counseling [facility] Start: 03-15-2025 Adult BMI Screening Adult BMI Screening [facility] Start: 02-28-2025 Adult BMI Screening Adult BMI Screening [facility] Start: 02-28-2025 Tobacco Screening Tobacco Screening [facility] Start: 02-27-2025 Adult BMI Screening Adult BMI Screening [facility] Start: 01-17-2025 Adult BMI Screening Adult BMI Screening [facility] Start: 01-17-2025 Tobacco Screening Tobacco Screening [facility] Start: 12-20-2024 Adult BMI Screening Adult BMI Screening [facility] Start: 12-20-2024 Tobacco Screening Tobacco Screening [facility] Start: 11-29-2024 Adult BMI Screening Adult BMI Screening [facility] Start: 11-29-2024 Tobacco Screening Tobacco Screening [facility] Start: 11-13-2024 Adult BMI Screening Adult BMI Screening [facility] Start: 11-09-2024 Adult BMI Screening Adult BMI Screening [facility] Start: 11-09-2024 Tobacco Screening Tobacco Screening [facility] Start: 11-07-2024 Tobacco Screening Tobacco Screening [facility] Start: 11-06-2024 Depression Screening Depression Screening [facility] Start: 11-05-2024 Patient referral [facility] Work Phone: Start: 10-24-2024 Adult BMI Screening Adult BMI Screening [facility] Start: 10-21-2024 End: 10-21-2024 Patient encounter procedure 10/21/2024 8:00 AM EDT Office Visit [facility] [address] [facility] [address] [place] [address] Dolores Pickard, INTELLIGENCE AGENT-CAR BODY DESIGNER [address] [facility] [address] [place] [address] [facility] Start: 10-17-2024 Adult BMI Screening Adult BMI Screening [facility] Start: 10-17-2024 Tobacco Screening Tobacco Screening [facility] Start: 10-13-2024 [facility] Start: 10-12-2024 [facility] Start: 10-11-2024 End: 10-11-2024 [facility] Start: 10-10-2024 End: 10-10-2024 [facility] Start: 10-10-2024 Hospital admission [facility] Start: 10-10-2024 Referral to planing machine operator [facility] Start: 08-30-2024 Patient referral [facility] Work Phone: Start: 08-13-2024 [facility] Start: 08-12-2024 [facility] Start: 08-11-2024 End: 08-11-2024 [facility] Start: 08-11-2024 Physical therapy procedure [facility] Start: 08-11-2024 Referral to occupational therapist [facility] Start: 08-11-2024 Hospital admission [facility] Start: 08-11-2024 Referral to tube drawing supervisor [facility] Start: 08-11-2024 CT angiography of head [facility] Start: 08-11-2024 CT angiography of neck vessels [facility] Start: 08-11-2024 CT Head WO contrast [facility] Start: 08-11-2024 CT of head without contrast CT head stroke alert wo con [facility] Start: 08-11-2024 Plain chest X-ray XR chest 1V portable [facility] Start: 08-11-2024 XR Chest Single view [facility] Start: 08-11-2024 End: 08-11-2024 [facility] Start: 04-23-2024 [facility] Start: 03-13-2024 [facility] Start: 03-11-2024 End: 03-11-2024 Patient encounter procedure 03/11/2024 8:40 AM EDT Office Visit [facility] [address] [place] [address] Bernard De La Cruz MD [address] [place] [address] [facility] Start: 03-10-2024 Referral to insurance claims processor [facility] Start: 03-09-2024 Comprehensive metabolic 2000 panel - Serum or Plasma [facility] Start: 03-09-2024 End: 03-09-2024 [facility] Start: 03-08-2024 Referral to psychiatrist [facility] Start: 03-08-2024 Referral to neurologist [facility] Start: 03-08-2024 End: 03-08-2024 [facility] Start: 03-05-2024 Referral to insurance claims processor [facility] Start: 03-04-2024 Referral to insurance claims processor [facility] Start: 03-03-2024 Referral to neurologist [facility] Start: 03-03-2024 [facility] Start: 03-03-2024 Hospital admission [facility] Start: 02-29-2024 End: 02-29-2024 Patient encounter procedure 02/29/2024 9:30 AM EDT Office Visit [facility] [address] [place] [phone] Mike Montes MD [address], [address] [place] [address] [facility] Start: 02-04-2024 COVID-19 Vaccine ( season) COVID-19 Vaccine ( season) [facility] Start: 02-04-2024 Influenza vaccination [facility] Start: 12-21-2023 End: 12-21-2023 Patient encounter procedure 12/21/2023 8:40 AM EDT Office Visit [facility] [address] [place] [address] Mike Montes MD [address], [address] [address] [facility] Start: 11-30-2023 End: 11-30-2023 Patient encounter procedure 11/30/2023 8:50 AM EDT Office Visit [facility] [address] [place] [address] Mike Montes MD [address], [address] [address] [facility] Start: 11-23-2023 End: 11-23-2023 Patient encounter procedure [facility] Start: 11-23-2023 End: 11-23-2023 Patient encounter procedure 11/23/2023 9:40 AM EDT Office Visit [facility] [address] [place] [address] Mike Montes MD [address], [address] [address] [facility] Start: 11-15-2023 FUV, Provider: Raulito Inman, Status: Pen, Time: 2:40 PM FUV, Provider: Raulito Inman, Status: Pen, Time: 2:40 PM [facility] 250 DO Work Phone: Start: 11-07-2023 End: 11-07-2023 Admission to same day surgery center 11/07/2023 3:00 PM EDT - 11/07/2023 4:00 PM EDT Surgery [facility] - Cardiac Cath [address] [place] [phone] Mike Montes MD [address] [place] [address] Vascular Invasive Right lower extremity angiogram with intervention [facility] Comment on above: Vascular Invasive Right lower extremity angiogram with intervention Start: 11-07-2023 Subsequent hospital visit by physician 11/07/2023 3:00 PM EDT Hospital Encounter [facility] Cardiac Cath [address] [place] [phone] Mike Montes MD [address] [place] [address] 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) [facility] Comment on above: Critical limb ischemia of right lower ex tremity with gangrene ([facility]) Start: 10-18-2023 End: 10-17-2024 CTA Abdominal Aorta and Bilateral Runoff Vessels W contrast IV [facility] Comment on above: Expected: 10/18/2023, Expires: Start: 10-18-2023 End: 10-17-2024 US.doppler Extremity arteries - bilateral for physiologic artery study [facility] Work Phone: Comment on above: Expected: 10/18/2023, [...] Dolores Velazquez, Status: Pen, Time: 10:00 AM -[facility] 600 DO Work Phone: Start: 02-03-2023 COVID-19 Vaccine () COVID-19 Vaccine () [facility] Start: 01-25-2023 STRESS NUC, Provider: CHALINO HHVI NUCLEAR 01,[id number], Status: Pen, Time: 8:30 AM STRESS NUC, Provider: CHALINO HHVI NUCLEAR 01,[id number], Status: Pen, Time: 8:30 AM -[facility] 600 DO Work Phone: Start: 07-12-2022 FUV, Provider: Raulito Inman, Status: Pen, Time: 9:20 AM FUV, Provider: Raulito Inman, Status: Pen, Time: 9:20 AM -[facility] 250 DO Work Phone: Start: 10-26-2021 FUV, Provider: Raulito Inman, Status: Pen, Time: 9:30 AM FUV, Provider: Raulito Inman, Status: Pen, Time: 9:30 AM -[facility] 250 DO Work Phone: Start: 03-05-2019 Pneumococcal Vaccine: Pediatrics (0 to 5 Years) and At-Risk Patients (6 to 64 Years) (2 of 2 - PCV) Pneumococcal Vaccine: Pediatrics (0 to 5 Years) and At-Risk Patients (6 to 64 Years) (2 of 2 - PCV) [facility] Start: 2015 Administration of varicella zoster vaccine Zoster (Shingles) Vaccine (1 of 2) [facility] Start: 02-27-2016 Zoster Vaccines (1 of 2) Zoster Vaccines (1 of 2) [facility] Start: 1987 DTaP/Tdap/Td Vaccines (1 - Tdap) DTaP/Tdap/Td Vaccines (1 - Tdap) [facility] Start: 1984 DTaP,Tdap and Td Vaccines (1 - Tdap) DTaP,Tdap and Td Vaccines (1 - Tdap) [facility] Start: 1984 Hepatitis B Vaccines (1 of 3 - 19+ 3-dose series) Hepatitis B Vaccines (1 of 3 - 19+ 3-dose series) [facility] Start: 1984 Urine screening for protein Diabetes: Urine Protein Screening [facility] Start: 1983 Adult BMI Follow Up Plan Adult BMI Follow Up Plan [facility] Start: 1983 Adult BMI Screening Adult BMI Screening [facility] Start: 1983 Diabetic foot examination Diabetic Foot Exam [facility] Start: 1983 Hepatitis C screening Hepatitis C Screening [facility] Start: 1977 Depression Screening Depression Screening [facility] Start: 1977 Tobacco Screening Tobacco Screening [facility] Start: 1975 Diabetic foot examination Diabetes: Foot Exam [facility] Start: 1975 Glaucoma screening Diabetes: Retinopathy Screening [facility] Start: 1966 MMR Vaccines (1 of 1 - Standard series) MMR Vaccines (1 of 1 - Standard series) [facility] Start: 1965 Creatinine measurement Creatinine Level [facility] Start: 1965 Echocardiography Echocardiogram [facility] Start: 1965 Glaucoma screening Diabetic Ophthalmology Exam [facility] Start: 1965 Hemoglobin A1c measurement Diabetes: Hemoglobin A1C [facility] Start: 1965 HIV screening HIV Screening [facility] Start: 1965 Lipid panel Lipid Panel [facility] Start: 1965 Potassium measurement Potassium Level [facility] Start: 1965 Screening for malignant neoplasm of colon [facility] Start: 1965 Tobacco Counseling Tobacco Counseling [facility] Start: 1965 Yearly Adult Physical Yearly Adult Physical [facility] Bacteria identified in Blood by Culture [facility] Comprehensive metabo lic 1999 panel - Serum or Plasma [facility] Comprehensive metabo lic 1999 panel - Serum or Plasma [facility] End: 10-17-2024 Creatinine includes GFR, serum Creatinine includes GFR, serum Lab Routine 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) 1 Occurrences starting 10/18/2023 until 10/17/[facility]24 [facility] Comment on above: 1 Occurrences starting 10/18/2023 until 10/17/2024 Microalbumin [Mass/v olume] in Urine [facility] Patient Education [facility] Work Phone: Patient referral [facility] Work Phone: Renal function 1999 panel - Serum or Plasma [facility] Renal function 1999 panel - Serum or Plasma [facility] End: 01-17-2024 [facility] Work Phone: Comment on above: Once for 1 Occurrences starting 01/17/20 24 until 01/17/2024 [facility] Immunizations Immunization Date Immunization Notes Care Provider Sachin pettit 11-13-2020 Pfizer-BioNTech COVID-19 Vacc 30 MCG/0.3ML Intramuscular Suspension Teresa Lynch Work Phone: [facility] 10-23-2020 Pfizer-BioNTech COVID-19 Vacc 30 MCG/0.3ML Intramuscular Suspension Teresa Lynch Work Phone: [facility] 01-14-2019 influenza, seasonal, injectable Teresa Lynch Other [facility] 01-14-2019 influenza virus vaccine, unspecified formulation Yeyo ROWE [facility] 04-02-2018 influenza virus vaccine, unspecified formulation Yeyo ROWE [facility] 04-02-2018 influenza, injectabl e, quadrivalent, preservative free DO Teresa Lynch Work Phone: [facility] 03-05-2018 influenza virus vaccine, unspecified formulation Teresa P Kuns Work Phone: [facility] 250 DO Work Phone: 03-05-2018 pneumococcal polysaccharide vaccine, 23 valent Teresa P Kuns Work Phone: [facility] 250 DO Work Phone: 03-07-2016 influenza virus vaccine, unspecified formulation Yeyo ROWE [facility] 03-07-2016 influenza, injectabl e, quadrivalent, preservative free Teresa P Rory Work Phone: [facility] 02-22-2016 pneumococcal polysaccharide vaccine, 23 valent Teresa P Kuns Work Phone: [facility] NEGATED: Highlighted row has not occurred!08-02-2024 influenza virus vaccine, unspecified formulation MARYBEL VANG [facility] Payers Date Payer Category Payer Self-pay [id number] 2023 Medicaid [id number] 2023 Private Health Insurance [id number] 2022 Private Health Insurance [id number] 2022 Private Health Insurance [id number] 2022 Medicaid [id number] 2022 Unknown 1965 Unknown [id number] 2.16.84 0.1.182857.3.579.2.593 1965 Unknown [id number] 2.16.8 40.1.354506.3.579.2.1068 1965 Unknown [id number] 2.16. 840.1.063929.3.579.2.356 1965 Unknown [id number] 2.16. 840.1.790649.3.579.2.356 1965 Unknown [id number] 2.16. 840.1.514269.3.579.2.356 1965 Unknown [id number] 2.16.8 40.1.818327.3.579.2.1286 1965 Unknown [id number] 2.16.8 40.1.036158.3.579.2.1286 1965 Unknown [id number] 2.16.8 40.1.082542.3.579.2.1286 1965 Unknown [id number] 2.16.8 40.1.413263.3.579.2.1286 1965 Unknown [id number] 2.16.8 40.1.654142.3.579.2.1286 1965 Unknown [id number] 2.16.8 40.1.102873.3.579.2.1286 1965 Unknown [id number] 2.16.8 40.1.892650.3.579.2.1286 1965 Unknown [id number] 2.16.8 40.1.407174.3.579.2.1286 1965 Unknown [id number] 2.16.8 40.1.837785.3.579.2.1246 1965 Unknown [id number] 2.16.8 40.1.330404.3.579.2.727 1965 Unknown [id number] 2.16.8 40.1.538137.3.579.2. 1965 Unknown [id number] 2.16.8 40.1.935079.3.579.2 1965 Unknown [id number] 2.16.8 40.1.728198.3.579.2 1965 Unknown [id number] 2.16.8 40.1.747697.3.579.2 1965 Unknown [id number] 2.16.8 40.1.716317.3.579.2 1965 Unknown [id number] 2.16.8 40.1.991008.3.579.2 1965 Unknown [id number] 2.16.8 40.1.295455.3.579.2 1965 Unknown [id number] 2.16.8 40.1.805427.3.579.2 1965 Unknown [id number] 2.16.8 40.1.433291.3.579.2 1965 Unknown [id number] 2.16.8 40.1.605622.3.579.2 1965 Unknown [id number] 2.16.8 40.1.780017.3.579.2 1965 Unknown [id number] 2.16.8 40.1.841846.3.579.2 1965 Unknown [id number] 2.16.8 40.1.757825.3.579.2 1965 Unknown [id number] 2.16.8 40.1.262632.3.579.2 1965 Unknown [id number] 2.16.8 40.1.820373.3.579.2 1965 Unknown [id number] 2.16.8 40.1.710157.3.579.2 1965 Unknown [id number] 2.16.8 40.1.461380.3.579.2.727 1965 Unknown [id number] 2.16.8 40.1.770499.3.579.2. 1965 Unknown [id number] 2.16.8 40.1.849016.3.579.2. 1965 Unknown [id number] 2.16.8 40.1.001087.3.579.2. 1965 Unknown [id number] 2.16.8 40.1.907329.3.579.2. 1965 Unknown [id number] 2.16.8 40.1.914812.3.579.2. 1965 Unknown [id number] 2.16.8 40.1.067181.3.579.2. 1965 Unknown [id number] 2.16.8 40.1.053446.3.579.2. 1965 Unknown [id number] 2.16.8 40.1.583077.3.579.2. 1965 Unknown [id number] 2.16.8 40.1.183719.3.579.2. 1965 Unknown [id number] 2.16.8 40.1.951214.3.579.2.1285 1965 Unknown [id number] 2.16.8 40.1.075524.3.579.2.1285 1965 Unknown [id number] 2.16.8 40.1.042738.3.579.2.1285 1965 Unknown [id number] 2.16.8 40.1.513535.3.579.2.1285 1965 Unknown [id number] 2.16.8 40.1.713620.3.579.2.1285 1965 Unknown [id number] 2.16.8 40.1.565654.3.579.2.1285 1965 Unknown [id number] 2.16.8 40.1.816050.3.579.2.727 1965 Unknown [id number] 2.16.8 40.1.008445.3.579.2.727 1965 Unknown [id number] 2.16.8 40.1.035126.3.579.2.727 1965 Unknown [id number] 2.16.8 40.1.727410.3.579.2.727 1965 Unknown [id number] 2.16.8 40.1.883159.3.579.2.727 1965 Unknown [id number] 2.16.8 40.1.921902.3.579.2.727 1965 Unknown [id number] 2.16.8 40.1.824761.3.579.2.727 1965 Unknown [id number] 2.16.8 40.1.703137.3.579.2.1244 1959 Unknown [id number] 2.1 6.840.1.652153.19 Unknown [id number] 2.16.8 40.1.423636.3.579.2.531 Unknown [id number] 2.16.8 40.1.460625.3.579.2.531 Unknown [id number] 2.16.8 40.1.080375.3.579.2.531 Unknown [id number] 2.16.8 40.1.739394.3.579.2.531 Unknown [id number] 2.16.8 40.1.496515.3.579.2.531 Unknown [id number] 2.16.8 40.1.059604.3.579.2.531 Unknown [id number] 2.16.8 40.1.531650.3.579.2.531 Unknown [id number] 2.16.8 40.1.936852.3.579.2.531 Social History Date Type Detail Facility Start: 08-08-2023 End: 01-18-2024 Caffeine use Caffeine use [facility] [employer] Other Comment on above: 2 cups coffee, 4-6 c ups tea daily, occaional soda; qauit 07/2020; Start: 08-08-2023 End: 01-18-2024 Sex Assigned At [facility] Start: 07-14-2020 End: 10-10-2024 Tobacco smoking status NHIS Smoker (finding) [facility] Start: 1965 Sex Assigned At Male F [facility] Start: 11-23-2022 End: 08-02-2024 Tobacco smoking status Heavy tobacco smoker (finding) [facility] Tobacco smoking status Never [facility] Start: 10-24-2023 Tobacco smoking stat us NHIS Ex-smoker [facility] Start: 10-05-1981 End: 06-05-2020 History of tobacco use Cigarette Smoker [facility] Start: 10-24-2023 End: 11-07-2023 Tobacco use and exposure Smokeless tobacco non-user [facility] Work Phone: Start: 10-24-2023 End: 01-01-2024 Alcoholic beverage intake Lifetime non-drinker (finding) [facility] Work Phone: Start: 1965 Sex assigned at Not on file [place] [facility] Start: 10-14-2023 End: 01-17-2024 Exposure to SARS-CoV-2 (event) Not sure [facility] Start: 03-10-2024 Tobacco smoking stat us PAIS Unknown if ever smoked [facility] Start: 04-23-2024 End: 11-05-2024 Sex Male (finding) [facility] Start: 10-05-1981 End: 11-07-2023 Tobacco smoking status NHIS Smokes tobacco daily [email or web address] Start: 11-10-2023 End: 01-18-2024 Alcoholic beverage intake [facility]-dr[facility] (finding[email or web address] Has the electric, ga s, oil, or [employer] threatened to shut off services in your [...] 08-12-2024 SDOH Follow up SDOH Follow up [facility] Work Phone: Medical Equipment Procedure [...] extremity runoff FDA Start: 09-27-2018 Start: 12-16-2013 [id number] FDA Start: 07-14-2020 Insulin Syringe,Safety Needle 1 mL 30 gauge x 1/2 syringe Start: 03-29-2024 Pen Needle, Diabetic (Comfort [facility] [place]) 32 gauge x 5/32 needle Start: 04-15-2024 Insulin Syringe,Safety Needle 1 mL 30 gauge x 1/2 syringe Start: 03-29-2024 Pen Needle, Diabetic (Comfort Ez Pen [place]) 32 gauge x 5/32 needle Start: 04-15-2024 LLE Angiogram Unknown 01/08/24 Non Biological Left Femoral Artery/Vein FDA Start: 01-08-2024 LLE Angiogram Unknown 01/08/24 Non Biological Left Femoral Artery/Vein FDA Start: 01-08-2024 LLE Angiogram Unknown 01/08/24 Non Biological Left Femoral Artery/Vein FDA Start: 01-08-2024 Graft Vsc 50cm 6 mm [place] [facility] Hep Propaten Ptfe Rem Rng - [id number] Start: 11-08-2023 Comment on above: Description: RIGHT F EMORAL ARTERY Stent Vsc Epic 10mm 100mm 120cm 6fr Rdpq Otw Slf Xpd Gw - [id number] FDA Start: 11-07-2023 LLE Angiogram Unknown 01/08/24 Non Biological Left Femoral Artery/Vein FDA Start: 01-08-2024 Insulin Syringe,Safety Needle 1 mL 30 gauge x 1/2 syringe Start: 03-29-2024 Pen Needle, Diabetic (Comfort Ez Pen [place]) 32 gauge x 5/32 needle Start: 04-15-2024 Insulin Syringe,Safety Needle 1 mL 30 gauge x 1/2 syringe Start: 03-29-2024 Pen Needle, Diabetic (Comfort Ez Pen [place]) 32 gauge x 5/32 needle Start: 04-15-2024 Insulin Syringe,Safety Needle 1 mL 30 gauge x 1/2 syringe Start: 03-29-2024 Pen Needle, Diabetic (Comfort Ez Pen [place]) 32 gauge x 5/32 needle Start: 04-15-2024 Insulin Syringe,Safety Needle 1 mL 30 gauge x 1/2 syringe Start: 03-29-2024 Pen Needle, Diabetic (Comfort Ez Pen [place]) 32 gauge x 5/32 needle Start: 04-15-2024 Insulin Syringe,Safety Needle 1 mL 30 gauge x 1/2 syringe Start: 03-29-2024 Pen Needle, Diabetic (Comfort Ez Pen [place]) 32 gauge x 5/32 needle Start: 04-15-2024 Insulin Syringe,Safety Needle 1 mL 30 gauge x 1/2 syringe Start: 03-29-2024 Pen Needle, Diabetic (Comfort Ez Pen [place]) 32 gauge x 5/32 needle Start: 04-15-2024 Insulin Syringe,Safety Needle 1 mL 30 gauge x 1/2 syringe Start: 03-29-2024 Pen Needle, Diabetic (Comfort Ez Pen [place]) 32 gauge x 5/32 needle Start: 04-15-2024 Goals Date Patient Goal Desired Activity /State Personal health goal Comment on above: Formatting of this n ote might be different from the original. Evaluation of progress towards goal: Patient is planning to transition back to SNF at discharge. Functional Status Date Assessment Result Facility 10-11-2024 Functional status Patient at Baseline [facility] Work Phone: 10-10-2024 Functional status Patient at Baseline [facility] Work Phone: 08-13-2024 Functional status Patient at Baseline [facility] Work Phone: 08-02-2024 Functional Status N/A [facility] 05-27-2024 Functional Status N/A [facility] 03-13-2024 Functional status Patient at Baseline [facility] Work Phone: 03-06-2024 Functional status Patient at Baseline [facility] Work Phone: 02-12-2024 Functional Status No [facility] 10-23-2023 Functional Status No [facility] 06-02-2023 Functional Status N/A [facility] 02-14-2023 Functional Status N/A [facility] 01-30-2023 Functional Status N/A [facility] 11-23-2022 Functional Status N/A [facility] Mental Status Date Assessment Result Facility 10-11-2024 Cognitive function Patient at Baseline [facility] Work Phone: 10-10-2024 Cognitive function Cognitive Sta tus Patient at Baseline [facility] Work Phone: 08-13-2024 Cognitive function Patient at Baseline [facility] Work Phone: 03-13-2024 Cognitive function Patient at Baseline [facility] Work Phone: 03-06-2024 Cognitive function Patient at Baseline [facility] Work Phone: Clinical Notes 06-23-2021 to 11-05-2024 Note Date & Type Note Facility 11-05-2024 Hospital Discharg e instructions Ambulatory OrdersReferral to Diabetes Management Time Frame: 11/05/24, Location: None Selected [facility] Work Phone: 10-10-2024 Consult note Note Date/Time October 11, 2024 9:56am [facility] [address] [place], [place] [id number] Cardiology Consult Note Signed Patient: Myra Pickard SR MR#: [id number] : 1965 Acct:[id number] Age/Sex: 59 / M Adm Date: 5 Loc: 4 Room: [address] [place] [address] Type: ADM INOo Attending Dr: Abdullahi aCnchola DO Copies to: DO Pascale Guzman [facility], [facility] Abdullah[facility] Canchola, ~ Cardiology HPI History of [...] post right below-knee amputation February 2024 in [place]. He has COPD followed by pulmonary medicine in [place]. His EKG showed no acute changes his [...] he gets seen first by his primary planing machine operator in the office, I emphasized to the [...] symptoms. Other review of system was unremarkable [facility] Medical History Hypokalemia Hypocalcemia Hypomagnesemia Vitamin B12 [...] mass Atrial fibrillation Atherosclerotic heart disease of [place] coronary artery with unspecified angina pectoris Anxiety Hx of exercise stress test Family history of premature CAD Reports mother had quadruple bypass at age of 45 Myocardial infarction mild Fibromyalgia Chronic back pain Sleep apnea Neuropathy Cataract Peripheral artery disease Hyperlipidemia Diabetes Hypertension Surgical History History of below-knee amputation of right lower extremity 02[place] [facility] [place] Simon Hernández Vascular History of [...] [History Confirmed 10/10/24] flash glucose scanning reader (SmartestingStyle Jigar 2 [place]) #1 ea 12/28/23 [Rx Confirmed 10/10/24] flash [...] 32 gauge x 5/32 (Comfort EZ Pen [place]) #100 ea 04/15/24 [Rx Confirmed 10/10/24] hydroxyzine [...] Lymph # (Auto) 2.0 2.0 (1.00-4.8) x10E3/uL [place] # (Auto) 0.8 0.9 H (0.0-0.8) x10E3/uL [...] RCA, nuclear stress test February 2024 in [place] was normal Plan: Continue aggressive risk factors modifications, tobacco cessation, dual antiplatelet therapy, high intensity statin Code(s): I25.10 - Atherosclerotic heart disease of [place] coronary artery without angina pectoris Documented By: Pascale Arnold MD, [facility] 5 [id number] Signed By: <Electronically signed by [facility] Pascale Arnold> 10/11/24 0956 [facility] Work Phone: 1(487) 931-374604-25-2025 NotePatient Education Urology Acute Urinary Retention, Male [...] these instructions at home: Medicines ??? Take ifco-yjp-ieeevog and prescription medicines only as told by [...] provider. Document Revised: 02/10/2021 Document Reviewed: 02/10/2021 Proviation Patient Education ? 2023 [employer] 08-30-2024 Hospital Discharge instructionsAmbulatory Orders* Referral to Pain Management Time Frame: 08/30/24, Location: None [facility] Work Phone: [phone] 500-991803-11-2025 [place] [address] Discharge Summary Signed Patient: Myra Pickard SR MR#: [id number] : 1965 Acct:[id number] Age/Sex: 59 / M Adm Date: 5 Loc: Room: 9U5215-[address]: Kevon Viera MD Copies to: [...] (DME) pen needle, diabetic [Comfort EZ Pen [place]] 32 gauge x 5/32 needle See Rx [...] Instructions: As directed (DME) FreeStyle Jigar 2 [place] Misc See Rx Instructions .Route Qty: 1 [...] 08/13/24 14 35 Signed By: 08/13/24 1439 [facility]03-11-2025 Progress note Author Maurice Francis [facility] Note Date/Time August 13, 2024 11: 06am [facility] [address] [place], [place] [phone] Nephrology Progress Note Signed Patient: Myra Pickard SR MR#: [id number] : 1965 Acct:[id number] Age/Sex: 59 / M Adm Date: 5 Loc: 3T Room: [address] [place] [address] Type: ADM IN Attending Dr: Kevon Viera [...] Skin: No rashes , warm to touch GEAR FINISHER: Awake,Alert, 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 Musculoskeletal: No [...] 25 Mg Tablet) 25 mg PO HS [facility] Stop: 08/11/25 21:59 Last Admin: 08/12/24 21:48 Dose: 25 mg Aspirin (Aspirin 81 Mg Tablet.) 81 mg PO DAILY [facility] Stop: 08/11/25 08:59 Last Admin: 08/13/24 08:25 Dose: 81 mg Atorvastatin Calcium (Atorvastatin 80 Mg Tablet) 80 mg PO DAILY [facility] Stop: 08/11/25 08:59 Last Admin: 08/13/24 08:25 Dose: 80 mg Budesonide/Formoterol Fumarate (Budesonide/Formoterol 160-4.5 Mcg 60 Puff/6 Gm Hfa.Aer.Ad) 2 puff INHALATION BID [facility] Stop: 08/11/25 08:59 Last Admin: 08/13/24 07:54 Dose: 2 puff Calcium Carbonate (Calcium Carbonate/Vitamin D3 500 Mg/200 Unit Tablet) 2 tab PO TID.WITH.MEALS [facility] Stop: 08/11/25 07:59 Last Admin: 08/13/24 08:25 Dose: 2 tab Clopidogrel Bisulfate (Clopidogrel Bisulfate 75 Mg Tablet) 75 mg PO DAILY [facility] Stop: 08/11/25 08:59 Last Admin: 08/13/24 08:25 Dose: 75 mg Cyanocobalamin (Cyanocobalamin 1,000 Mcg/Ml Vial) 1,000 mcg IM DAILY [facility] Stop: 08/17/24 09:01 Last Admin: 08/13/24 08:25 [...] 5,000 Unit/Ml Vial) 5,000 unit SUBCUT Q12HR [facility] Stop: 08/11/25 08:59 Last Admin: 08/13/24 08:25 Dose: 5,000 unit Hydralazine HCl (Hydralazine 20 Mg/Ml Vial) 10 mg IV-PUSH Q4H PRN PRN Reason: if SBP > 185 Stop: 08/11/25 05:38 Ferric Sodium Gluconate Complex 250 mg/ Sodium Chloride 270 mls @ 135 mls/hr IVQAM [facility] Stop: 08/14/24 10:59 Last Admin: 08/12/24 09:19 Dose: 135 mls/hr Insulin Aspart (Insulin Aspart 300 Units/3 Ml) 0 units SUBCUT TID.WM.HS [facility]; Protocol Stop: 08/11/25 07:59 Last Admin: 08/13/24 08:25 Dose: 1 units Ipratropium [place] (Ipratropium [place] 0.5 Mg/2.5 Ml Vial.Neb) 0.5 mg INHALATION QID.RESP [facility] Stop: 08/11/25 07:59 Last Admin: 08/13/24 07:54 [...] weeks Documented By: Maurice Francis MD 08/13/24 7146 Signed By: <Electronically signed by Maurice Francis MD> 08/13/24 6317 [facility] Work Phone: [phone] [place] [address] Nephrology Progress Note Signed Patient: Myra Pickard SR MR#: [id number] : 1965 Acct:[id number] Age/Sex: 59 / M Adm Date: 5 Loc: 3T Room: [address] [place] [address] Type: ADM IN Attending Dr: Kevon Viera [...] Skin: No rashes , warm to touch GEAR FINISHER: Awake,Alert, 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 Musculoskeletal: No [...] 25 Mg Tablet) 25 mg PO HS [facility] Stop: 08/11/25 21:59 Last Admin: 08/12/24 21:48 [...] 75 Mg Tablet) 75 mg PO DAILY [facility] Stop: 08/11/25 08:59 Last Admin: 08/13/24 08:25 Dose: 75 mg Cyanocobalamin (Cyanocobalamin 1,000 Mcg/Ml Vial) 1,000 mcg IM DAILY [facility] Stop: 08/17/24 09:01 Last Admin: 08/13/24 08:25 [...] 5,000 Unit/Ml Vial) 5,000 unit SUBCUT Q12HR [facility] Stop: 08/11/25 08:59 Last Admin: 08/13/24 08:25 Dose: 5,000 unit Hydralazine HCl (Hydralazine 20 Mg/Ml Vial) 10 mg IV-PUSH Q4H PRN PRN Reason: if SBP > 185 Stop: 08/11/25 05:38 Ferric Sodium Gluconate Complex 250 mg/ Sodium Chloride 270 mls @ 135 mls/hr IVQAM [facility] Stop: 08/14/24 10:59 Last Admin: 08/12/24 09:19 Dose: 135 mls/hr Insulin Aspart (Insulin Aspart 300 Units/3 Ml) 0 units SUBCUT TID.WM.[facility]; Protocol Stop: 08/11/25 07:59 Last Admin: 08/13/24 08:25 Dose: 1 units Ipratropium [place] (Ipratropium [place] 0.5 Mg/2.5 Ml Vial.Neb) 0.5 mg INHALATION QID.RESP [facility] Stop: 08/11/25 07:59 Last Admin: 08/13/24 07:54 Dose: 0.5 mg Isosorbide Mononitrate (Isosorbide Mononitrate 24hr Er 30 Mg Tab.Er.24h) 30 mg PO DAILY [facility] Stop: 08/11/25 08:59 Last Admin: 03/11/25 08:25 [...] MD 08/13/24 0855 Signed By: 08/13/24 1106 [facility]03-10-2025 Progress note Author Kevon Viera [facility] Note Date/Time August 12, 2024 3:[address] [facility] [address] [place] [address] Hospitalist Progress Note Signed Patient: Myra Pickard SR MR#: [id number] : 1965 Acct:[id number] Age/Sex: 59 / M Adm Date: 5 Loc: 3T Room: [address] [place] [address] Type: ADM IN Attending Dr: Kevon Viera [...] 1 units TID.WM.HS [facility] Administration Protocol Ipratropium [place] 0.5 mg 08/11/24 08:00 08/12/24 12:31 Ipratropium [place] 0.5 Mg/2.5 Ml Vial.Neb INHALATION 08/11/25 07:59 [...] <Electronically signed by Kevon Viera MD> 08/12/[address] [place] [address] Work Phone: [phone]) [phone] [place] [address] Hospitalist Progress Note Signed Patient: Myra Pickard MR#: [id number] : 1965 Acct:[id number] Age/Sex: 59 / M Adm Date: 5 Loc: Room: [address] [place] [address] Type: ADM IN Attending Dr: Kevon Viera [...] 1 units TID.WM.HS [facility] Administration Protocol Ipratropium [place] 0.5 mg 08/11/24 08:00 08/12/24 12:31 Ipratropium [place] 0.5 Mg/2.5 Ml Vial.Neb INHALATION 08/11/25 07:59 [...] MD 08/12/24 15 12 Signed By: 08/12/[address] [place], [place] [address]003-10-2025 Progress note Author Maurice Francis [facility] Note Date/Time August 12, 2024 11: 47am [facility] [address] [place] [address] Nephrology Progress Note Signed Patient: Myra Pickard SR MR#: [id number] : 1965 Acct:[id number] Age/Sex: 59 / M Adm Date: 5 Loc: Room: [address] [place] [address] Type: ADM IN Attending Dr: Kevon Viera [...] Skin: No rashes , warm to touch GEAR FINISHER: Awake,Alert, 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 Musculoskeletal: No [...] 80 Mg Tablet) 80 mg PO DAILY [facility] Stop: 08/11/25 08:59 Last Admin: 08/12/24 08:27 [...] 1,000 mls @ 125 mls/hr IV .Q8H [facility] Stop: 08/11/25 07:14 Last Admin: 08/12/24 08:26 Dose: 125 mls/hr Ferric Sodium Gluconate Complex 250 mg/ Sodium Chloride 270 mls @ 135 mls/hr IVQAM [facility] Stop: 08/14/24 10:59 Last Admin: 08/12/24 09:19 Dose: 135 mls/hr Insulin Aspart (Insulin Aspart 300 Units/3 Ml) 0 units SUBCUT TID.[facility]; Protocol Stop: 08/11/25 07:59 Last Admin: 08/12/24 08:27 Dose: Not Given Ipratropium [place] (Ipratropium [place] 0.5 Mg/2.5 Ml Vial.Neb) 0.5 mg INHALATION QID.RESP [facility] Stop: 08/11/25 07:59 Last Admin: 08/12/24 08:51 Dose: 0.5 mg Isosorbide Mononitrate (Isosorbide Mononitrate 24hr Er 30 Mg Tab.Er.24h) 30 mg PO DAILY [facility] Stop: 08/11/25 08:59 Last Admin: 08/12/24 08:27 Dose: 30 mg Metoprolol Tartrate (Metoprolol Tartrate 100 Mg Tablet) 100 mg PO BID [facility] Stop: 08/11/25 08:59 Last Admin: 08/12/24 08:27 Dose: 100 mg Pantoprazole Sodium (Pantoprazole 40 Mg Tablet.Dr) 40 mg PO BID [facility] Stop: 08/11/25 08:59 Last Admin: 08/12/24 08:27 Dose: 40 mg Pregabalin (Pregabalin 75 Mg Capsule) 75 mg PO TID [facility] Stop: 02/07/25 08:59 Last Admin: 08/12/24 08:27 Dose: 75 mg Ropinirole HCl (Ropinirole 1 Mg Tablet) 1 mg PO TID [facility] Stop: 08/11/25 08:59 Last Admin: 08/12/24 08:27 [...] a.m. Documented By: Maurice Francis MD 08/12/24 1111 Signed By: <Electronically signed by Maurice Francis MD> 08/12/24 1140 [facility] Work Phone: [phone] [place] [address] Nephrology Progress Note Signed Patient: Myra Pickard MR#: [id number] : 1965 Acct:[id number] Age/Sex: 59 / M Adm Date: 5 Loc: 3T Room: [address] [place] [address] Type: ADM IN Attending Dr: Kevon Viera [...] Skin: No rashes , warm to touch GEAR FINISHER: Awake,Alert, 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 Musculoskeletal: No [...] 1,000 Mcg/Ml Vial) 1,000 mcg IM DAILY [facility] Stop: 08/17/24 09:01 Last Admin: 08/12/24 08:27 [...] 1,000 mls @ 125 mls/hr IV .Q8H [facility] Stop: 08/11/25 07:14 Last Admin: 08/12/24 08:26 Dose: 125 mls/hr Ferric Sodium Gluconate Complex 250 mg/ Sodium Chloride 270 mls @ 135 mls/hr IVQAM [facility] Stop: 08/14/24 10:59 Last Admin: 08/12/24 09:19 Dose: 135 mls/hr Insulin Aspart (Insulin Aspart 300 Units/3 Ml) 0 units SUBCUT TID.WM.HS [facility]; Protocol Stop: 08/11/25 07:59 Last Admin: 08/12/24 08:27 Dose: Not Given Ipratropium [place] (Ipratropium [place] 0.5 Mg/2.5 Ml Vial.Neb) 0.5 mg INHALATION QID.RESP [facility] Stop: 08/11/25 07:59 Last Admin: 08/12/24 08:51 Dose: 0.5 mg Isosorbide Mononitrate (Isosorbide Mononitrate 24hr Er 30 Mg Tab.Er.24h) 30 mg PO DAILY [facility] Stop: 08/11/25 08:59 Last Admin: 08/12/24 08:27 Dose: 30 mg Metoprolol Tartrate (Metoprolol Tartrate 100 Mg Tablet) 100 mg PO BID [facility] Stop: 08/11/25 08:59 Last Admin: 08/12/24 08:27 Dose: 100 mg Pantoprazole Sodium (Pantoprazole 40 Mg Tablet.Dr) 40 mg PO BID [facility] Stop: 08/11/25 08:59 Last Admin: 08/12/24 08:27 Dose: 40 mg Pregabalin (Pregabalin 75 Mg Capsule) 75 mg PO TID [facility] Stop: 02/07/25 08:59 Last Admin: 08/12/24 08:27 Dose: 75 mg Ropinirole HCl (Ropinirole 1 Mg Tablet) 1 mg PO TID [facility] Stop: 08/11/25 08:59 Last Admin: 08/12/24 08:27 Dose: 1 mg Tamsulosin HCl (Tamsulosin 0.4 Mg Cap.Er.24h) 0.4 mg PO BID [facility] Stop: 08/11/25 08:59 Last Admin: 08/12/24 08:27 [...] Francis MD 08/12/241114 Signed By: 08/12/24 1147 [facility]03-09-2025 Consult note Author Amina Fagan [facility] Note Date/Time August 11, 2024 2:[address] [facility] [address] [place] [address] Nephrology Consult Note Signed Patient: Myra Pickard SR MR#: [id number] : 1965 Acct:[id number] Age/Sex: 59 / M Adm Date: 5 Loc: Room: [address] [place] [address] Type: ADM IN Attending Dr: Kevon Viera [...] reviewed 12 system review is negative today [facility] Medical History Chronic obstructive pulmonary disease, unspecified [...] mass Atrial fibrillation Atherosclerotic heart disease of [place] coronary artery with unspecified angina pectoris Anxiety Hx of exercise stress test Family history of premature CAD Reports mother had quadruple bypass at age of 45 Myocardial infarction mild Fibromyalgia Chronic back pain Sleep apnea Neuropathy Cataract Peripheral artery disease Hyperlipidemia Diabetes Hypertension Surgical History History of below-knee amputation of right lower extremity 02/2024 [facility] [place]. Simon Hernández Vascular History of [...] [History Confirmed 08/11/24] flash glucose scanning reader (SmartestingStyle Jigar 2 [place]) #1 ea 12/28/23 [Rx Confirmed 08/11/24] flash [...] 32 gauge x 5/32 (Comfort EZ Pen [place]) #100 ea 04/15/24 [Rx Confirmed 08/11/24] hydroxyzine [...] 25 Mg Tablet) 25 mg PO HS [facility] Stop: 08/11/25 21:59 Aspirin (Aspirin 81 Mg Tablet.) 81 mg PO DAILY [facility] Stop: 08/11/25 08:59 Last Admin: 08/11/24 09:13 Dose: 81 mg Atorvastatin Calcium (Atorvastatin 80 Mg Tablet) 80 mg PO DAILY [facility] Stop: 08/11/25 08:59 Last Admin: 08/11/24 09:14 Dose: 80 mg Budesonide/Formoterol Fumarate (Budesonide/Formoterol 160-4.5 Mcg 60 Puff/6 Gm Hfa.Aer.Ad) 2 puff INHALATION BID [facility] Stop: 08/11/25 08:59 Last Admin: 08/11/24 09:41 Dose: 2 puff Calcium Carbonate (Calcium Carbonate/Vitamin D3 500 Mg/200 Unit Tablet) 2 tab PO TID.WITH.MEALS [facility] Stop: 08/11/25 07:59 Last Admin: 08/11/24 13:40 Dose: 2 tab Clopidogrel Bisulfate (Clopidogrel Bisulfate 75 Mg Tablet) 75 mg PO DAILY [facility] Stop: 08/11/25 08:59 Last Admin: 08/11/24 09:14 Dose: 75 mg Cyanocobalamin (Cyanocobalamin 1,000 Mcg/Ml Vial) 1,000 mcg IM DAILY [facility] Stop: 08/17/24 09:01 Last Admin: 08/11/24 09:14 [...] 5,000 Unit/Ml Vial) 5,000 unit SUBCUT Q12HR [facility] Stop: 08/11/25 08:59 Last Admin: 08/11/24 09:14 [...] 1,000 mls @ 125 mls/hr IV .Q8H [facility] Stop: 08/11/25 07:14 Last Admin: 08/11/24 11:51 Dose: 125 mls/hr Insulin Aspart (Insulin Aspart 300 Units/3 Ml) 0 units SUBCUT TID.WM.HS [facility]; Protocol Stop: 08/11/25 07:59 Last Admin: 08/11/24 13:40 Dose: Not Given Ipratropium [place] (Ipratropium [place] 0.5 Mg/2.5 Ml Vial.Neb) 0.5 mg INHALATION QID.RESP [facility] Stop: 08/11/25 07:59 Last Admin: 08/11/24 13:00 Dose: 0.5 mg Isosorbide Mononitrate (Isosorbide Mononitrate 24hr Er 30 Mg Tab.Er.24h) 30 mg PO DAILY [facility] Stop: 08/11/25 08:59 Last Admin: 08/11/24 09:13 Dose: 30 mg Metoprolol Tartrate (Metoprolol Tartrate 100 Mg Tablet) 100 mg PO BID [facility] Stop: 08/11/25 08:59 Last Admin: 08/11/24 09:13 Dose: 100 mg Pantoprazole Sodium (Pantoprazole 40 Mg Tablet.Dr) 40 mg PO BID [facility] Stop: 08/11/25 08:59 Last Admin: 08/11/24 09:13 Dose: 40 mg Pregabalin (Pregabalin 75 Mg Capsule) 75 mg PO TID [facility] Stop: 02/07/25 08:59 Last Admin: 08/11/24 13:40 Dose: 75 mg Ropinirole HCl (Ropinirole 1 Mg Tablet) 1 mg PO TID [facility] Stop: 08/11/25 08:59 Last Admin: 08/11/24 13:40 Dose: 1 mg Tamsulosin HCl (Tamsulosin 0.4 Mg Cap.Er.24h) 0.4 mg PO BID [facility] Stop: 08/11/25 08:59 Last Admin: 08/11/24 09:13 Dose: 0.4 mg Tizanidine HCl (Tizanidine 4 Mg Tablet) 4 mg PO QHS [facility] Stop: 08/11/25 21:59 Exam Physical Exam Vital [...] Appearance Clear Urine pH 5.5 Ur Specific [place] 1.024 Urine Protein Negative Urine Glucose (UA) 500 H Urine Ketones Negative Urine Occult Blood Negative Urine Nitrite Negative Ur Leukocyte Esterase Negative Radiology Impressions Impressions - last 24 hours: Impressions Chest X-Ray 08/11/24 04:22 IMPRESSION: No acute process. Impression dictated by: Sudeep Lind M.D.08/11/2024 10:06 AM Dictation Location: [place] [address] 08/11/24 04:22 IMPRESSION: No acute [...] Sudeep Lind M.D.08/11/2024 10:06 AM Dictation Location: [place] [address] Any impression(s) listed above is documentation that [...] concern Documented By: Amina Fagan MD 08/11/24 6363 Signed By: <Electronically signed by Amina Fagan MD> 08/11/24 1417 [facility] Work Phone: 1([phone]) 668-622803-09-2025 Progress note Author Kevon Viera [facility] Note Date/Time August 11, 2024 1:[address] [facility] [address] [place], [place] [address] Progress Note Signed Patient: Myra Pickard SR MR#: [id number] : 1965 Acct:[id number] Age/Sex: 59 / M Adm Date: 5 Loc: 3T Room: [address] [place] [address] Type: ADM IN Attending Dr: Kevon Viera [...] <Electronically signed by Kevon Viera MD> 08/11/24 [facility] Work Phone: [phone]) [phone] [place] [address] Nephrology Consult Note Signed Patient: Myra Pickard SR MR#: [id number] : 1965 Acct:[id number] Age/Sex: 59 / M Adm Date: 5 Loc: 3T Room: [address] [place] [address] Type: ADM IN Attending Dr: Kevon Viera [...] reviewed 12 system review is negative today [facility] Medical History Chronic obstructive pulmonary disease, unspecified [...] mass Atrial fibrillation Atherosclerotic heart disease of [place] coronary artery with unspecified angina pectoris Anxiety Hx of exercise stress test Family history of premature CAD Reports mother had quadruple bypass at age of 45 Myocardial infarction mild Fibromyalgia Chronic back pain Sleep apnea Neuropathy Cataract Peripheral artery disease Hyperlipidemia Diabetes Hypertension Surgical History History of below-knee amputation of right lower extremity 02/2024 [facility] [place]. Simon Hernández Vascular History of [...] 07/12/23[History Confirmed 08/11/24] flash glucose scanning reader (SmartestingStyle Jigar 2 [place]) #1 ea 12/28/23 [Rx Confirmed 08/11/24] flash [...] 32 gauge x 5/32 (Comfort EZ Pen [place]) #100 ea 04/15/24 [Rx Confirmed 08/11/24] hydroxyzine [...] 25 Mg Tablet) 25 mg PO HS [facility] Stop: 08/11/25 21:59 Aspirin (Aspirin 81 Mg Tablet.) 81 mg PO DAILY [facility] Stop: 08/11/25 08:59 Last Admin: 08/11/24 09:13 Dose: 81 mg Atorvastatin Calcium (Atorvastatin 80 Mg Tablet) 80 mg PO DAILY [facility] Stop: 08/11/25 08:59 Last Admin: 08/11/24 09:14 Dose: 80 mg Budesonide/Formoterol Fumarate (Budesonide/Formoterol 160-4.5 Mcg 60 Puff/6 Gm Hfa.Aer.Ad) 2 puff INHALATION BID [facility] Stop: 08/11/25 08:59 Last Admin: 08/11/24 09:41 Dose: 2 puff Calcium Carbonate (Calcium Carbonate/Vitamin D3 500 Mg/200 Unit Tablet) 2 tab PO TID.WITH.MEALS [facility] Stop: 08/11/25 07:59 Last Admin: 08/11/24 13:40 Dose: 2 tab Clopidogrel Bisulfate (Clopidogrel Bisulfate 75 Mg Tablet) 75 mg PO DAILY [facility] Stop: 08/11/25 08:59 Last Admin: 08/11/24 09:14 Dose: 75 mg Cyanocobalamin (Cyanocobalamin 1,000 Mcg/Ml Vial) 1,000 mcg IM DAILY [facility] Stop: 08/17/24 09:01 Last Admin: 08/11/24 09:14 [...] 5,000 Unit/Ml Vial) 5,000 unit SUBCUT Q12HR [facility] Stop: 08/11/25 08:59 Last Admin: 08/11/24 09:14 [...] 1,000 mls @ 125 mls/hr IV .Q8H [facility] Stop: 08/11/25 07:14 Last Admin: 08/11/24 11:51 Dose: 125 mls/hr Insulin Aspart (Insulin Aspart 300 Units/3 Ml) 0 units SUBCUT TID.WM.HS [facility]; Protocol Stop: 08/11/25 07:59 Last Admin: 08/11/24 13:40 Dose: Not Given Ipratropium [place] (Ipratropium [place] 0.5 Mg/2.5 Ml Vial.Neb) 0.5 mg INHALATION QID.RESP [facility] Stop: 08/11/25 07:59 Last Admin: 08/11/24 13:00 Dose: 0.5 mg Isosorbide Mononitrate (Isosorbide Mononitrate 24hr Er 30 Mg Tab.Er.24h) 30 mg PO DAILY [facility] Stop: 08/11/25 08:59 Last Admin: 08/11/24 09:13 Dose: 30 mg Metoprolol Tartrate (Metoprolol Tartrate 100 Mg Tablet) 100 mg PO BID [facility] Stop: 08/11/25 08:59 Last Admin: 08/11/24 09:13 Dose: 100 mg Pantoprazole Sodium (Pantoprazole 40 Mg Tablet.Dr) 40 mg PO BID [facility] Stop: 08/11/25 08:59 Last Admin: 08/11/24 09:13 Dose: 40 mg Pregabalin (Pregabalin 75 Mg Capsule) 75 mg PO TID [facility] Stop: 02/07/25 08:59 Last Admin: 08/11/24 13:40 Dose: 75 mg Ropinirole HCl (Ropinirole 1 Mg Tablet) 1 mg PO TID [facility] Stop: 08/11/25 08:59 Last Admin: 08/11/24 13:40 Dose: 1 mg Tamsulosin HCl (Tamsulosin 0.4 Mg Cap.Er.24h) 0.4 mg PO BID [facility] Stop: 08/11/25 08:59 Last Admin: 08/11/24 09:13 Dose: 0.4 mg Tizanidine HCl (Tizanidine 4 Mg Tablet) 4 mg PO QHS [facility] Stop: 08/11/25 21:59 Exam Physical Exam Vital [...] Appearance Clear Urine pH 5.5 Ur Specific [place] 1.024 Urine Protein Negative Urine Glucose (UA) 500 H Urine Ketones Negative Urine Occult Blood Negative Urine Nitrite Negative Ur Leukocyte Esterase Negative Radiology Impressions Impressions - last 24 hours: Impressions Chest X-Ray 08/11/24 04:22 IMPRESSION: No acute process. Impression dictated by: Sudeep Lind M.D.08/11/2024 10:06 AM Dictation Location: [place] [facility] 08/11/24 04:22 IMPRESSION: No acute [...] Sudeep Lind M.D.08/11/2024 10:06 AM Dictation [facility] Any impression(s) listed above is documentation [...] concern Documented By: Amina Fagan MD 08/11/24 5856 Signed By: 08/11/24 1418 [facility]03-09-2025 [place] [address] Progress Note Signed Patient: Myra Pickard SR MR#: [id number] : 1965 Acct:[id number] Age/Sex: 59 / M Adm Date: 5 Loc: 3T Room: [address] [place] [address] Type: ADM IN Attending Dr: Kevon Viera [...] 08/11/24 13 20 Signed By: 08/11/24 1321 [facility]03-09-2025 Radiology Diagnostic study note [facility] [place] [address] CT Scan Report Signed Patient: Myra Pickard SR MR#: [id number] : 1965 Acct:[id number] Age/Sex: 59 / M ADM Date: 5 Loc: 3T Room: [address] [place] [address] Type: ADM IN Attending Dr: Kevon Viera MD Copies to: MD Francisco Urbina Jr, MD~ Ordering Provider: Francisco Duncan Jr, MD Date of Service: 08/11/24 CT/CT head stroke alert wo con: acute stroke/neuro deficits ([id number]) CT/CT angio neck: L side numb ([id number]) CT/CT angio head: L side numb Unenhanced [...] Sudeep Lind M.D.08/11/2024 10:06 AM Dictation Location: [place] [address] Transcribed By: [facility] 08/11/24 1006 Dictated By: Sudeep Lind DO 08/11/24 1000 Signed By: 08/11/24 1006 [facility]03-09-2025 History and physical note Author Marge Andino [facility] Note Date/Time August 11, 2024 7:[address] [facility] [address] [place] [address] Hospitalist H&P Signed Patient: Myra Pickard SR MR#: [id number] : 1965 Acct:[id number] Age/Sex: 59 / M Adm Date: 5 Loc: 3T Room: 7C6970-0 Type: ADM IN Attending Dr: Kevon Viera [...] neck without acute findings -official report pending [facility] Medical History Chronic obstructive pulmonary disease, unspecified [...] mass Atrial fibrillation Atherosclerotic heart disease of [place] coronary artery with unspecified angina pectoris Anxiety Hx of exercise stress test Family history of premature CAD Reports mother had quadruple bypass at age of 45 Myocardial infarction mild Fibromyalgia Chronic back pain Sleep apnea Neuropathy Cataract Peripheral artery disease Hyperlipidemia Diabetes Hypertension Surgical History History of below-knee amputation of right lower extremity 02/[place] [facility] [place]. Simon Hernández Vascular History of [...] [History Confirmed 08/11/24] flash glucose scanning reader ([employer] Jigar 2 [place]) #1 ea 12/28/23 [Rx Confirmed 08/11/24] flash glucose sensor (SmartestingStyle Jigar 2 Sensor kit) #1 ea 12/28/23 [...] 32 gauge x 5/32 (Comfort EZ Pen [place]) #100 ea 04/15/24 [Rx Confirmed 08/11/24] hydroxyzine [...] 04:15 Lymph % (Auto) N/A 08/11/24 04:15 [place] % (Auto) N/A 08/11/24 04:15 Eos % (Auto) N/A 08/11/24 04:15 Baso % (Auto) N/A 08/11/24 04:15 Nucleat RBC Rel Count N/A 08/11/24 04:15 Neut # (Auto) N/A 08/11/24 04:15 Lymph # (Auto) N/A 08/11/24 04:15 [place] # (Auto) N/A 08/11/24 04:15 Eos # [...] <Electronically signed by Marge Andino MD> 08/11/24 5493 [facility] Work Phone: 1(610) 324-908503-09-2025 Evaluation note* Diagnosis Onset Date Resolution Status Admit Date Acute kidney injury superimp osed on CKD acute August 11, 2024 5:39am BPH loc w urin obs/LUTS acute M [facility] 2024 5:39am Diabetes acute August 11 5:39am Hypocalcemia acute August 11 025 5:39am Hypokalemia acute August 11 5:39am Hypomagnesemia acute August 11, 2024 5:39am Iron deficiency acute August 5:39am Left sided numbness acute August 11, 2024 5:39am Paresthesias acute August 11 025 5:39am Vitamin B12 deficiency acute Ma [facility] 2024 5:39am Hypertension chronic August 11 025 5:39am [facility] Work Phone: 1([phone]) 260-572703-09-2025 Evaluation note* Diagnosis Onset Date Resolution Status Admit Date Hypocalcemia acute August 11 025 5:39am Hypokalemia acute August 11 5:39am Hypomagnesemia acute August 11, 2024 5:39am Acute kidney injury superimp osed on CKD inactive August 11, 2024 5:39am BPH loc w urin obs/LUTS inactive [facility] 2024 5:39am Diabetes inactive August 11 5:39am Hypertension inactive August 11, 025 5:39am Iron deficiency inactive August 5:39am Left sided numbness inactive August 11, 2024 5:39am Paresthesias inactive August 11, 025 5:39am Vitamin B12 deficiency inactive [facility] 2024 5:39am Anemia of renal disease acute [facility] 2024 8:37am Chronic kidney disease, stage 3b acu te August 30, 2024 8:37am 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 acute [facility] 2024 8:37am Hypocalcemia acute August 30, 2024 8:37am Hypokalemia acute August 30 8:37am Hypomagnesemia acute August 8:37am Neuropathy acute August 30 8:37am Non compliance w medication regimen acute August 30, 2024 8:37am [facility] Work Phone: 1([phone]) 623-830903-09-2025 Evaluation note* Diagnosis Onset Date Resolution Status Admit Date Hypocalcemia acute August 11 5:39am Hypokalemia acute August 11 5:39am Hypomagnesemia acute August 11, 2024 5:39am Acute kidney injury superimp osed on CKD inactive August 11, 2024 5:39am BPH loc w urin obs/LUTS inactive [facility] 2024 5:39am Diabetes inactive August 11 5:39am Hypertension inactive August 11, 025 5:39am Iron deficiency inactive August 5:39am Left sided numbness inactive August 11, 2024 5:39am Paresthesias inactive August 11 025 5:39am Vitamin B12 deficiency inactive [facility] 2024 5:39am Anemia of renal disease acute [facility] 2024 8:37am Chronic kidney disease, stage [...] Chest pain acute October 10, 2024 6:25pm [facility] Work Phone: 1([phone]) 837-186803-09-2025 Evaluation note* Diagnosis Onset Date Resolution Status Admit Date Hypocalcemia acute August 11, 025 5:39am Hypokalemia acute August 11 5:39am Hypomagnesemia acute August 11, 2024 5:39am Acute kidney injury superimp osed on CKD inactive August 11, 2024 5:39am BPH loc w urin obs/LUTS inactive [facility] 2024 5:39am Diabetes inactive August 11 5:39am Hypertension inactive August 11 025 5:39am Iron deficiency inactive August 5:39am Left sided numbness inactive August 11, 2024 5:39am Paresthesias inactive August 11 025 5:39am Vitamin B12 deficiency inactive [facility] 2024 5:39am Anemia of renal disease acute [facility] 2024 8:37am Chronic kidney disease, stage [...] 10, 2024 6:25pm Chronic kidney disease inactive [facility] 2024 6:25pm Chronic obstructive pulmonar y disease, unspecified inactive October 10 6:25pm History of below-knee amputa tion of right lower extremity inactive May 8th , 2025 6:25pm Hyperlipidemia inactive October 10 025 6:25pm Chest pain deleted October 10, 2024 6:25pm [facility] Work Phone: 1(411) 812-640503-09-2025 Evaluation note* Diagnosis Onset Date Resolution Status Admit Date Hypocalcemia acute August 11, 2 025 5:39am Hypokalemia acute August 11 5:39am Hypomagnesemia acute August 11, 2024 5:39am Iron deficiency acute August 5:39am Vitamin B12 deficiency acute [facility] 2024 5:39am Acute kidney injury superimp osed on CKD inactive August 11, 2024 5:39am BPH loc w urin obs/LUTS inactive [facility] 2024 5:39am Diabetes inactive August 11 5:39am Hypertension inactive August 11, 025 5:39am Left sided numbness inactive August 11, 2024 5:39am Paresthesias inactive August 11, 025 5:39am Anemia of renal disease acute [facility] 2024 8:37am Chronic kidney disease, stage [...] acute October 6:25pm Chronic kidney disease inactive [facility] 2024 6:25pm Chronic obstructive pulmonar y disease, unspecified inactive October 10 6:25pm Hyperlipidemia inactive October 10 025 6:25pm Chest pain deleted October 10, 2024 6:25pm Anemia of renal disease acute [facility] 2024 1:08pm CAD (coronary artery disease) acute November 05, 2024 1:08pm Cigarette nicotine dependenc e with nicotine-induced disorder acute J une 2024 1:08pm 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 acute [facility] 2024 1:08pm History of below-knee amputa tion of right lower extremity acute November 1:08pm Hypocalcemia acute November 05 1:08pm Vitamin D deficiency acute November 05, 2024 1:08pm Anemia of renal disease acute [facility] 2024 4:13pm BMI 34.0-34.9,adult acute November 05, 2024 4:13pm Chronic kidney disease, stage 3b acu te November 05, 2024 4:13pm 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 acute [facility] 2024 4:13pm Gout acute November 05, 2024 4:13pm Hypertensive nephropathy acute November 05, 2024 4:13pm Hypomagnesemia acute November 05, 2024 4:13pm Iron deficiency acute November 05, 2024 4:13pm Vitamin D deficiency acute November 05, 2024 4:13pm BPH loc w urin obs/LUTS inactive [facility] 2024 4:13pm [facility] Work Phone: 1(665) 924-505403-09-2025 Evaluation note* Diagnosis Onset Date Resolution Status Admit Date Hypocalcemia acute August 11 025 5:39am Hypokalemia acute August 11 5:39am Hypomagnesemia acute August 11, 2024 5:39am Acute kidney injury superimp osed on CKD inactive August 11, 2024 5:39am BPH loc w urin obs/LUTS inactive [facility] 2024 5:39am Diabetes inactive August 11 5:39am Hypertension inactive August 11 025 5:39am Iron deficiency inactive August 5:39am Left sided numbness inactive August 11, 2024 5:39am Paresthesias inactive August 11 025 5:39am Vitamin B12 deficiency inactive [facility] 2024 5:39am Anemia of renal disease acute [facility] 2024 8:37am Chronic kidney disease, stage [...] D deficiency acute November 05, 2024 1:08pm [facility] Work Phone: 1(750) 104-833703-09-2025 [place] [address] Hospitalist H&P Signed Patient: Myra Pickard SR MR#: [id number] : 1965 Acct:[id number] Age/Sex: 59 / M Adm Date: 5 Loc: Room: [address] [place] [address] Type: ADM IN Attending Dr: Kevon Viera [...] neck without acute findings -official report pending [facility] Medical History Chronic obstructive pulmonary disease, unspecified [...] mass Atrial fibrillation Atherosclerotic heart disease of [place] coronary artery with unspecified angina pectoris Anxiety Hx of exercise stress test Family history of premature CAD Reports mother had quadruple bypass at age of 45 Myocardial infarction mild Fibromyalgia Chronic back pain Sleep apnea Neuropathy Cataract Peripheral artery disease Hyperlipidemia Diabetes Hypertension Surgical History History of below-knee amputation of right lower extremity 02/2024 [facility] [place]. Simon Hernández Vascular History of [...] 07/12/23[History Confirmed 08/11/24] flash glucose scanning reader ([employer] Jigar 2 [place]) #1 ea 12/28/23 [Rx Confirmed 08/11/24] flash [...] 32 gauge x 5/32 (Comfort EZ Pen [place]) #100 ea 04/15/24 [Rx Confirmed 08/11/24] hydroxyzine [...] 04:15 Lymph % (Auto) N/A 08/11/24 04:15 [place] % (Auto) N/A 08/11/24 04:15 Eos % (Auto) N/A 08/11/24 04:15 Baso % (Auto) N/A 08/11/24 04:15 Nucleat RBC Rel Count N/A 08/11/24 04:15 Neut # (Auto) N/A 08/11/24 04:15 Lymph # (Auto) N/A 08/11/24 04:15 [place] # (Auto) N/A 08/11/24 04:15 Eos # [...] Marge Andino MD 08/11/2417 Signed By: 08/11/2424 [facility]03-04-2025 NotePatient Education Urology Orchitis Orchitis is inflammation [...] by your health care provider. ??? Take iwjm-qjd-apvnlel and prescription medicines only as told by [...] medicines to fight th (more content not included)...[facility]12-23-2024 Hospital Discharge instructions Patient Education [...] urethra. Follow these instructions at home: Take payc-cjb-ceblwla and prescription medicines only as told by [...] provider. Document Revised: 12/08/2021 Document Reviewed: 12/08/2021 Proviation Patient Education 2023 [employer]. Follow Up Care 04/01/2024 10:56:08 With:SOLEDAD HERREAR, Yeyo Blum, URL Address: [facility] [address], [place] [address]- [phone] When: Unknown [facility] Aurelio 12-23-2024 NotePatient Education Urology Benign Prostatic [...] Follow these instructions at home: ??? Take epwr-syc-ojfdjsu and prescription medicines only as told by [...] symptoms do not get (more content not included)...[facility]12-23-2024 Evaluation + Plan note Diagnostic Tests Pending * PSA Total 05/27/24 Future Scheduled Tests Radiology* US PVR Lower EXT Complete Bilat 11/20/23 [facility] 12-03-2024 Evaluation note* Diagnosis Onset Date [...] 2024 4:21pm Hypomagnesemia acute May 072023 4:21pm [facility] Work Phone: 1(907) 941-594811-19-2024 [place] [address] EGD Procedure Note Signed Patient: Myra Pickard SR MR#: [id number] : 1965 Acct:[id number] Age/Sex: 58 / M Adm Date: 4 Loc: Room: Type: [facility] Attending Dr: Mike Burleson MD Copies to: [...] MD 04/23/24 1350 Signed By: 04/23/24 1358 [facility]11-19-2024 [place] [address] Gastroenterology H&P Signed Patient: Myra Pickard SR MR#: [id number] : 1965 Acct:[id number] Age/Sex: 58 / M Adm Date: 4 Loc: Room: Type: [facility] Attending Dr: Mike Burleson MD Copies to: [...] MD Documented By: Mike Burleson MD 04/23/24 5646 Signed By: 04/23/24 8268 [facility]11-01-2024 Evaluation note* Author Cat Byrd [facility] Authored April 05, 2024 1 :29pm Sooner if needed, the ER if concerns,The above note written by Cat Byrd LPN acting as human recorder, note dictated by Dr. Teresa Lynch [facility] Work Phone: 1(804) 576-676410-18-2024 Miscellaneous Notes* Telephone Encounter - Moncho Stevenson - 03/22/2024 11:24 PM EDT Contract: 198 - Re: high Blood Sugars . Called Dr. Tam and connected to caller documented in this encounterGrant HospitalCost Effective Data [id number] Telephone encounter Note* Telephone Encounter - Moncho Stevenson - 03/22/2024 11:24 PM EDT Contract: 198 - Re: high Blood Sugars . Called Dr. Tam and connected to caller [facility] [id number] History of Present illness Narrative* Guero Tam, - 03/19/2024 5:25 PM EDT Patient Name: Myra Pickard Date of : 1965 Date of Service: 03/19/2024 Facility: [facility] Type of Visit: Skilled Visit Subjective Myra Pickard is a 58 y.o. male seen today at longterm facility for No chief complaint on file. [...] polyneuropathy associated with type 2 diabetes mellitus ([facility]) 2. Encounter for orthopedic aftercare following [...] BY: Guero Tam DO [facility] History of Present illness Narrative* Guero Tam DO - 03/15/2024 6:27 PM EDT Patient Name: Myra Pickard Date of : 1965 Date of Service: 03/15/2024 Facility: [facility] Type of Visit: Admission H&P Subjective Myra Pickard is a 58 y.o. male seen today at longterm facility for admission for therapies. Myra returns to [facility] from [facility] where he was admitted for altered [...] polyneuropathy associated with type 2 diabetes mellitus ([facility]) 2. Disorientation 3. Other abnormalities of gait and mobility 4. Status post partial amputation of right foot ([facility]) 5. Atherosclerosis of cahu[place] coronary artery of [place] heart without angina pectoris 6. Atrial fibrillation ([facility]) 7. Primary hypertension Admit to [facility] for therapies. Plan to do therapy and then go home in a few weeks. Continue current regimen. Full code. Good rehab potential. ELECTRONICALLY SIGNED BY: Guero Tam DO documented in [facility]-2024 Miscellaneous Notes* Telephone Encounter - Nancy Kim CMA - 03/15/2024 10:10 AM EDT Patients spouse called in to question about getting a stripper printed circuit boards sock. Stated patient is currently isin a care facility. Please advise and call spouse. documented in [facility]-2024 Telephone encounter Note* Telephone Encounter - Nancy Kim CMA - 03/15/2024 10:10 AM EDT Patients spouse called in to question about getting a stripper printed circuit boards sock. Stated patient is currently [facility] facility. Please advise and call spouse. [facility] [employer] [id number] Discharge summary Author Remberto Ervin [facility] March 13, 2024 9:46am Note Date/Time March 13, 2024 9: 46am [facility] [address] [place] [address] Discharge Summary Signed Patient: Myra Pickard SR MR#: [id number] : 1965 Acct:[id number] Age/Sex: 58 / M Adm Date: 4 Loc: Room: [address] [place] [address]: Remberto Ervin MD Copies to: [...] colleague in collaboration with other specialists and supportive employment case manager. Patient came in with a change in [...] ask her primary care doctor to obtain [facility] record entirely to address abnormalities seen on labs and imagingthat I have and have not addressed during this hospitalization, follow-up on pending blood work, imaging and pathology is if available and to follow-up on needed medical care in the outpatient setting. Time Spent with Patient Time spent providing/coordinating discharge services (# min): 45 Discharge Plan Discharge Plan Patient Disposition: Assisted Facility Activity: No Activity Restriction Additional Instructions: I may not have addressed or treated all of your medical illnesses or the abnormal blood work or imaging studies during this hospitalization. Please ask your primary care provider to obtain [facility] records entirely to follow up on all of the abnormal physical, laboratory, and imaging findings that I have not addressed. Please return back to the emergency room or seek medical attention if your symptoms worsen or return. Discharging you from [facility] does not mean that your medical [...] Instructions: As directed (DME) [employer] Jigar 2 [place] Misc See Rx Instructions .ROUTE Qty: 1 [...] 16:02 Blood Culture Stat 03/10/24 06:49 NMDA [A-txbavm-A-Aspartate IgG, Ser] IN AM Preliminary micro results [...] % (Auto) 66.7, Lymph % (Auto) 14.7, [place] % (Auto) 14.4, Eos % (Auto) 3.0, Baso % (Auto) 1.2, Nucleat RBC Rel Count 0.1, Neut # (Auto) 4.0, Lymph # (Auto) 0.9 L, [place] # (Auto) 0.9 H, Eos # (Auto) [...] signed by Remberto Ervin MD> 03/13/24 0946 [facility] Work Phone: 1(121) 451-316510-08-2024 Progress note Author João Powell [facility] March 12, 2024 1:46pm Note Date/Time March 12, 2024 1: 34pm [facility] [address] [place] [address] Hospitalist Progress Note Signed Patient: Myra Pickard SR MR#: [id number] : 1965 Acct:[id number] Age/Sex: 58 / M Adm Date: 4 Loc: Room: [address] [place] [address] Type: ADM IN Attending Dr: João Powell [...] 2 units TID.WM.HS SATISH Administration Protocol Ipratropium Troy 0.5 mg 03/08/24 20:00 03/12/24 09:34 Ipratropium [place] 0.5 Mg/2.5 Ml Vial.Neb INHALATION 03/08/25 19:59 [...] signed by João Powell MD> 03/12/24 1346 [facility] Work Phone: 1(928) 887-237010-08-2024 Progress note Author Mike Burleson [facility] March 12, 2024 9:28am Note Date/Time March 12, 2024 9: 28am [facility] [address] [place] [address] Gastroenterology PN Signed Patient: Myra Pickard SR MR#: [id number] : 1965 Acct:[id number] Age/Sex: 58 / M Adm Date: 4 Loc: Room: [address] [place] [address] Type: ADM IN Attending Dr: João Powell [...] 1 units TID.WM.HS SATISH Administration Protocol Ipratropium [place] 0.5 mg 03/08/24 20:00 03/12/24 06:05 Ipratropium [place] 0.5 Mg/2.5 Ml Vial.Neb INHALATION 03/08/25 19:59 [...] <Electronically signed by Mike Burleson MD> 03/12/24927 [facility] Work Phone: 1(467) 276-832510-07-2024 Progress note Author João Powell [facility] March 11, 2024 1:38pm Note Date/Time March 11, 2024 1: 35pm [facility] [address] [place], [place] [address] Hospitalist Progress Note Signed Patient: Myra Pickard MR#: [id number] : 1965 Acct:[id number] Age/Sex: 58 / M Adm Date: 4 Loc: 3T Room: [address] [place] [address] Type: ADM IN Attending Dr: João Powell [...] 11:59 Not Given TID.WM.HS SATISH Protocol Ipratropium [place] 0.5 mg 03/08/24 20:00 03/11/24 10:15 Ipratropium [place] 0.5 Mg/2.5 Ml Vial.Neb INHALATION 03/08/25 19:59 [...] By: <Electronically signed by João Powell MD> 03/11/240 [facility] Work Phone: 1(312) 578-502910-06-2024 Progress note Author Luther Dozier [facility] March 10, 2024 11:31am Note Date/Time March 10, 2024 11 :31am [facility] [address] [place] [address] Neurology Progress Note Signed Patient: Myra Pickard SR MR#: [id number] : 1965 Acct:[id number] Age/Sex: 58 / M Adm Date: 4 Loc: Room: [address] [place] [address] Type: ADM IN Attending Dr: João Powell [...] Therapy Recommendations: PT Recommendations PT Recommended Discharge Assisted Facility,Inpatient Rehab Unit Location PT Recommended Services [...] signed by Luther Dozier DO> 03/10/24 1131 [facility] Work Phone: 1(837) 612-718610-06-2024 Consult note Author Mike Burleson [facility] March 10, 2024 11:29am Note Date/Time March 10, 2024 11 :29am [facility] [address] [place] [address] Gastroenterology Consult Note Signed Patient: Myra Pickard SR MR#: [id number] : 1965 Acct:[id number] Age/Sex: 58 / M Adm Date: 4 Loc: Room: [address] [place] [address] Type: ADM IN Attending Dr: João Powell MD Copies to: DO Mkie Guzman MD Mohamad Akil, MD~ HPI Data [...] Denies easy bruising Allergic/Immunologic Allergic/Immunologic: Denies wheezing [facility] Medical History Vitamin D deficiency Spondylosis [...] mass Atrial fibrillation Atherosclerotic heart disease of [place] coronary artery with unspecified angina pectoris Anxiety [...] Use Type: None Social History Comments: at [facility] for rehab Meds Medications and Allergies Allergies [...] [History Confirmed 03/08/24] flash glucose scanning reader ([employer] Jigar 2 [place]) #1 ea 12/28/23 [Rx Confirmed 03/08/24] flash [...] % (Auto) 83.4 Lymph % (Auto) 4.9 [place] % (Auto) 10.6 Eos % (Auto) 0.8 Baso % (Auto) 0.3 Nucleat RBC Rel Count 0.2 Neut # (Auto) 11.4 H Lymph # (Auto) 0.7 L [place] # (Auto) 1.5 H Eos # (Auto) [...] MPV Neut % (Auto) Lymph % (Auto) [place] % (Auto) Eos % (Auto) Baso % (Auto) Nucleat RBC Rel Count Neut # (Auto) Lymph # (Auto) [place] # (Auto) Eos # (Auto) Baso # [...] <Electronically signed by Mike Burleson MD> 03/10/24 1122 [facility] Work Phone: 1(389) 286-672610-06-2024 Progress note Author João Powell [facility] March 10, 2024 10:14am Note Date/Time March 10, 2024 10 :14am [facility] [facility] [address] [place] [address] Hospitalist Progress Note Signed Patient: Myra Pickard SR MR#: [id number] : 1965 Acct:[id number] Age/Sex: 58 / M Adm Date: 4 Loc: Room: [address] [place] [address] Type: ADM IN Attending Dr: João Powell [...] IV 03/10/25 09:22 DAILY PRN Hypomagnesemia Ipratropium Troy 0.5 mg 03/08/24 20:00 03/10/24 05:25 Ipratropium Troy 0.5 Mg/2.5 Ml Vial.Neb INHALATION 03/08/25 19:59 [...] signed by João Powell MD> 03/10/24 1014 [facility] Work Phone: 1(604) 863-859110-05-2024 Progress note Author João Powell [facility] March 09, 2024 11:32am Note Date/Time March 09, 2024 10 :57am [facility] [address] [place] [address] Hospitalist Progress Note Signed Patient: Myra Pickard SR MR#: [id number] : 1965 Acct:[id number] Age/Sex: 58 / M Adm Date: 4 Loc: 3T Room: [address] [place] [address] Type: ADM IN Attending Dr: João Powell [...] 81 Mg Tab.Chew PO 03/09/25 08:59 DAILY [facility] Atorvastatin Calcium 80 mg 03/09/24 09:00 Atorvastatin 80 Mg Tablet PO 03/09/25 08:59 DAILY SATISH Ferrous Sulfate 324 mg 03/08/24 20:00 03/08/24 22:52 Ferrous Sulfate 324 Mg Tablet.Dr PO 03/08/25 19:59 324 mg Q48H SATISH Administration Heparin Sodium (Porcine) 5,000 unit 03/08/24 22:00 03/09/24 05:31 Heparin 5,000 Unit/Ml Vial SUBCUT 03/08/25 21:59 5,000 unit Q8HR SATISH Administration Ipratropium Troy 0.5 mg 03/08/24 20:00 03/09/24 09:14 Ipratropium Troy 0.5 Mg/2.5 Ml Vial.Neb INHALATION 03/08/25 19:59 [...] signed by João Powell MD> 03/09/24 1132 [facility] Work Phone: 1([phone] 540-815410-05-2024 Consult note Author Job James [facility] March 09, 2024 11:12am Note Date/Time March 09, 2024 11 :10am [facility] [address] [place], [place] [id number] Psychiatry Consult Note Signed Patient: Myra Pickard SR MR#: [id number] : 1965 Acct:[id number] Age/Sex: 58 / M Adm Date: 4 Loc: 3T Room: [address] [place] [address] Type : ADM IN Attending Dr: João [...] more like retaliation Insight: fair Judgment: fair [facility] Medical History Vitamin D deficiency Spondylosis [...] mass Atrial fibrillation Atherosclerotic heart disease of [place] coronary artery with unspecified angina pectoris Anxiety [...] Use Type: None Social History Comments: at [facility] [place] for rehab Meds Medications and Allergies Allergies [...] [History Confirmed 03/08/24] flash glucose scanning reader ([employer] Jigar 2 [place]) #1 ea 12/28/23 [Rx Confirmed 03/08/24] flash glucose sensor ([employer] Jigar 2 Sensor kit) #1 ea 12/28/23 [...] Appearance Clear Urine pH 5.0 Ur Specific [place] 1.013 Urine Protein Negative Urine Glucose (UA) [...] signed by Job James MD> 03/09/24 1112 [facility] Work Phone: [phone]) 745-945210-05-2024 Consult note Author Luther Dozier [facility] March 09, 2024 10:59am Note Date/Time March 09, 2024 9: 07am [facility] [address] [place] [address] Neurology Consult Note Signed Patient: Myra Pickard MR#: [id number] : 1965 Acct:[id number] Age/Sex: 58 / M Adm Date: 4 Loc: Room: [address] [place] [address] Type: ADM IN Attending Dr: João Powell MD Copies to: DO Teresa Freeman DO Mohamad Akil, MD~ HPI Consult Date: 03/09/24 Webmaster: Luther Dozier DO [facility] Medical History Vitamin D deficiency Spondylosis [...] mass Atrial fibrillation Atherosclerotic heart disease of cahu[place] coronary artery with unspecified angina pectoris Anxiety [...] Use Type: None Social History Comments: at [facility] for rehab Meds Medications and Allergies Allergies [...] [History Confirmed 03/08/24] flash glucose scanning reader ([employer] Jigar 2 [place]) #1 ea 12/28/23 [Rx Confirmed 03/08/24] flash glucose sensor ([employer] Jigar 2 Sensor kit) #1 ea 12/28/23 [...] Marks Jr., D.O.03/08/2024 2:41 PM Dictation Location: [place] [address] Chest X-Ray 03/08/24 17:03 IMPRESSION: No acute process. Impression dictated by: Sudeep Lind M.D.03/08/2024 6:08 PM Dictation Location: [place] [address] Brain MRI 03/08/24 17:48 IMPRESSION: No acute intracranial process. Impression dictated by: Sudeep Lind M.D.03/08/2024 8:10 PM Dictation Location: [place] [address] Assessment/Plan (1) Altered mental status: Qualifiers: Altered mental status type: unspecified Qualified Code(s): R41.82 - Altered mental status, unspecified Plan CONSULT REASON: Sudden AMS, stroke ruled out HPI: 58-year-old man. History that includes coronary artery disease with PCI, peripheral vascular disease, type 2 diabetes, hypertension, heart failure, diabetic neuropathy, status post recent below the knee amputation at [facility]. He had just been here several days [...] <Electronically signed by Luther Dozier DO> 03/09/24 3407 [facility] Work Phone: 1(274) 381-733710-05-2024 History and physical note Author João Powell [facility] March 08, 2024 10:05pm Note Date/Time March 08, 2024 7: 19pm [facility] [address] [place] [address] Hospitalist H&P Signed Patient: Myra Pickard SR MR#: [id number] : 1965 Acct:[id number] Age/Sex: 58 / M Adm Date: 4 Loc: Room: [address] [place] [address] Type: ADM IN Attending Dr: João Powell [...] neuropathy status post right BKA recently at [facility], here today for altered mental status. History [...] neck were all negative. ED staff contacted [place] neuro stroke team and [place] deemed [place] eligible [place] Patient is being admitted under the hospitalist [...] of Systems Unobtainable due to mental status [facility] Medical History Vitamin D deficiency Spondylosis [...] mass Atrial fibrillation Atherosclerotic heart disease of cahu[place] coronary artery with unspecified angina pectoris Anxiety [...] Use Type: None Social History Comments: at [facility] for rehab Meds Medications and Allergies Allergies [...] [History Confirmed 03/08/24] flash glucose scanning reader ([employer] Jigar 2 [place]) #1 ea 12/28/23 [Rx Confirmed 03/08/24] flash glucose sensor ([employer] Jigar 2 Sensor kit) #1 ea 12/28/23 [...] % (Auto) 13.1 % (.) 03/08/24 14:15 [place] % (Auto) 13.2 % (.) 03/08/24 14:15 Eos % (Auto) 3.3 % (.) 03/08/24 14:15 Baso % (Auto) 1.0 % (.) 03/08/24 14:15 Nucleat RBC Rel Count 0.2 /100 WBC (0-0.5) 03/08/24 14:15 Neut # (Auto) 6.2 x10E3/uL (1.8-7.7) 03/08/24 14:15 Lymph # (Auto) 1.2 x10E3/uL (1.00-4.8) 03/08/24 14:15 [place] # (Auto) 1.2 x10E3/uL (0.0-0.8) H 03/08/24 [...] pH 5.0 (5.0-9.0) 03/08/24 16:11 Ur Specific [place] 1.013 (1.001-1.030) 03/08/24 16:11 Urine Protein Negative [...] <Electronically signed by João Powell MD> 03/08/242204 [facility] Work Phone: 1(592) 915-227010-01-2024 Progress note Author Luther Dozier [facility] March 05, 2024 2:28pm Note Date/Time March 05, 2024 2: 22pm [facility] [address] [place] [address] Neurology Progress Note Signed Patient: Myra Pickard SR MR#: [id number] : 1965 Acct:[id number] Age/Sex: 58 / M Adm Date: 4 Loc: Room: [address] [place] [address] Type: ADM IN Attending Dr: João Powell [...] Therapy Recommendations: OT Recommendations OT Recommended Discharge Assisted Facility Location PT Recommendations PT Recommended Discharge Assisted Facility Location PT Recommended Services at Physical [...] <Electronically signed by Luther Dozier DO> 03/05/248 [facility] Work Phone: 1(585) 431-762510-01-2024 Progress note Author João Powell [facility] March 05, 2024 2:17pm Note Date/Time March 05, 2024 2: 17pm [facility] [address] [place] [address] Hospitalist Progress Note Signed Patient: Myra Pickard SR MR#: [id number] : 1965 Acct:[id number] Age/Sex: 58 / M Adm Date: 4 Loc: Room: [address] [place] [address] Type: ADM IN Attending Dr: João Powell [...] 1,000 Ml IV 03/03/25 17:59 60 mls/hr .[id number] SATISH Administration Ferric Sodium Gluconate 110 mls @ 110 mls/hr 03/05/24 12:00 03/05/24 13:18 Complex 125 mg/ Sodium IV 03/07/24 09:01 110 mls/hr Chloride QAM SATISH Administration Insulin Aspart 0 units 03/04/24 12:00 03/05/24 11:41 Insulin Aspart 300 Units/3 Ml Insuln.Pen SUBCUT 03/04/25 11:59 Not Given TID.WM.HS SATISH Protocol Ipratropium Troy 0.5 mg 03/04/24 09:00 03/05/24 13:59 Ipratropium Troy 0.5 Mg/2.5 Ml Vial.Neb INHALATION 03/04/25 08:59 [...] <Electronically signed by João Powell MD> 03/05/24 1412 [facility] Work Phone: 1([phone] 121-153910-01-2024 Consult note Author Mike Burleson [facility] March 05, 2024 1:35pm Note Date/Time March 05, 2024 9: 32am [facility] [address] [place] [address] Gastroenterology Consult Note Signed Patient: Myra Pickard MR#: [id number] : 1965 Acct:[id number] Age/Sex: 58 / M Adm Date: 4 Loc: Room: [address] [place] [address] Type: ADM IN Attending Dr: João Powell [...] Hematologic/Lymphatic: Denies easy bruising and Denies lymphadenopathy [facility] Medical History Vitamin D deficiency Spondylosis [...] mass Atrial fibrillation Atherosclerotic heart disease of [place]ahu[place] coronary artery with unspecified angina pectoris Anxiety [...] Use Type: None Social History Comments: at [facility] for rehab Meds Medications and Allergies Allergies [...] 12/25/23[Rx Confirmed 03/03/24] flash glucose scanning reader ([employer] Jigar 2 [place]) #1 ea 12/28/23 [Rx Confirmed 03/03/24] flash glucose sensor ([employer] Jigar 2 Sensor kit) #1 ea 12/28/23 [...] MPV Neut % (Auto) Lymph % (Auto) [place] % (Auto) Eos % (Auto) Baso % (Auto) Nucleat RBC Rel Count Neut # (Auto) Lymph # (Auto) [place] # (Auto) Eos # (Auto) Baso # [...] Blood Type Recheck Antibody Screen Negative Crossmatch ([facility]) See Detail 03/04/24 03/04/24 03/04/24 13:07 14:29 16:32 Corrected WBC Uncorrected WBC Count RBC Hgb Hct MCV MCH MCHC RDW Plt Count MPV Neut % (Auto) Lymph % (Auto) [place] % (Auto) Eos % (Auto) Baso % (Auto) Nucleat RBC Rel Count Neut # (Auto) Lymph # (Auto) [place] # (Auto) Eos # (Auto) Baso # [...] Type Recheck O Positive Antibody Screen Crossmatch ([facility]) 03/04/24 03/05/24 03/05/24 20:45 06:11 06:54 Corrected WBC 8.3 Uncorrected WBC Count 8.3 RBC 3.83 L Hgb 8.6 L Hct 26.8 L MCV 70.1 L MCH 22.4 L MCHC 31.9 L RDW 21.4 H Plt Count 361 MPV 7.9 Neut % (Auto) 67.6 Lymph % (Auto) 16.1 [place] % (Auto) 12.4 Eos % (Auto) 2.8 Baso % (Auto) 1.1 Nucleat RBC Rel Count 0.0 Neut # (Auto) 5.6 Lymph # (Auto) 1.3 [place] # (Auto) 1.0 H Eos # (Auto) [...] evaluation. -Recommend obtaining prior GI workup from [facility] -I recommend continuing his PPI -Recommend avoiding [...] follow-up with his previous GI team at [facility] Thank you for this consult, little further to add from a GI standpoint. I will peripherally follow pending discharge. Documented By: Mike Burleson MD 03/05/24931 Signed By: <Electronically signed by Mike Burleson MD> 03/05/24 8818 [facility] Work Phone: [phone]) 889-789809-30-2024 Consult note Author Luther Dozier [facility] March 04, 2024 12:57pm Note Date/Time March 04, 2024 12:57pm [facility] [address] [place] [address] Neurology Consult Note Signed Patient: Myra Pickard SR MR#: [id number] : 1965 Acct:[id number] Age/Sex: 58 / M Adm Date: 4 Loc: Room: [address] [place] [address] Type: ADM INOo Attending Dr: João Powell MD Copies to: DO Teresa Freeman DO Mohamad Akil, MD~ HPI Consult Date: 03/04/24 Webmaster: Luther Dozier DO [facility] Medical History Vitamin D deficiency Spondylosis [...] mass Atrial fibrillation Atherosclerotic heart disease of cahu[place] coronary artery with unspecified angina pectoris Anxiety [...] Use Type: None Social History Comments: at [facility] for rehab Meds Medications and Allergies Allergies [...] 12/25/23[Rx Confirmed 03/03/24] flash glucose scanning reader ([employer] Jigar 2 [place]) #1 ea 12/28/23 [Rx Confirmed 03/03/24] flash glucose sensor ([employer] Jigar 2 Sensor kit) #1 ea 12/28/23 [...] knee amputation about 3 weeks ago at [facility]. He was feeling lightheaded every time he [...] signed by Luther Dozier DO> 03/04/24 1257 [facility] Work Phone: [phone]) 175-264809-30-2024 Progress note Author João Powell [facility] March 04, 2024 11:53am Note Date/Time March 04, 2024 11:46am [facility] [address] [place] [address] Hospitalist Progress Note Signed Patient: Myra Pickard SR MR#: [id number] : 1965 Acct:[id number] Age/Sex: 58 / M Adm Date: 4 Loc: 3T Room: [address] [place] [address] Type: ADM INOo Attending Dr: João Powell [...] 1,000 Ml IV 03/03/25 17:59 60 mls/hr .[id number] SATISH Administration Sodium Chloride 500 mls @ 20 mls/hr 03/04/24 09:29 0.9 % Sodium Chloride IV 03/05/24 09:28 PROTOCOL PRN BLOOD TRANSFUSION Ipratropium Troy 0.5 mg 03/04/24 09:00 03/04/24 10:47 Ipratropium Troy 0.5 Mg/2.5 Ml Vial.Neb INHALATION 03/04/25 08:59 [...] Syringe IV-PUSH 03/03/25 16:59 Not Given Q8H [facility] A&P - Hospitalist Assessment/Plan (1) Restless legs [...] <Electronically signed by João Powell MD> 03/04/24 1151 [facility] Work Phone: [phone]) 172-573409-30-2024 History and physical note Author João Powell [facility] March 03, 2024 10:48pm Note Date/Time March 03, 2024 5:55pm [facility] [address] [place] [address] Hospitalist H&P Signed Patient: Myra Pickard SR MR#: [id number] : 1965 Acct:[id number] Age/Sex: 58 / M Adm Date: 4 Loc: 3T Room: [address] [place] [address] Type: ADM INOo Attending Dr: João Powell [...] neuropathy status post right BKA recently at [facility]. He presents today with episodes of lightheadedness [...] negative unless noted below or in HPI [facility] Medical History Vitamin D deficiency Spondylosis [...] mass Atrial fibrillation Atherosclerotic heart disease of cahu[place] coronary artery with unspecified angina pectoris Anxiety [...] 12/25/23[Rx Confirmed 03/03/24] flash glucose scanning reader ([employer] Jigar 2 [place]) #1 ea 12/28/23 [Rx Confirmed 03/03/24] flash [...] % (Auto) 18.2 % (.) 03/03/24 14:00 [place] % (Auto) 11.3 % (.) 03/03/24 14:00 Eos % (Auto) 3.2 % (.) 03/03/24 14:00 Baso % (Auto) 1.7 % (.) 03/03/24 14:00 Nucleat RBC Rel Count 0.2 /100 WBC (0-0.5) 03/03/24 14:00 Neut # (Auto) 4.7 x10E3/uL (1.8-7.7) 03/03/24 14:00 Lymph # (Auto) 1.3 x10E3/uL (1.00-4.8) 03/03/24 14:00 [place] # (Auto) 0.8 x10E3/uL (0.0-0.8) 03/03/24 14:00 [...] pH 5.0 (5.0-9.0) 03/03/24 14:35 Ur Specific [place] 1.009 (1.001-1.030) 03/03/24 14:35 Urine Protein Negative [...] <Electronically signed by João Powell MD> 03/03/24 224 [facility] Work Phone: 1(807) 799-287009-26-2024 History of Present illness Narrative* Mike Montes [...] up Removal of toshia next week at [facility] and sizing for prosthesis.. [facility] History of Present illness Narrative* Guero Tam DO - 02/28/2024 2:51 PM EDT Patient Name: Myra Pickard Date of : 1965 Date of Service: 02/28/2024 Facility: [facility] Type of Visit: Skilled Visit Subjective Myra Pickard is a 58 y.o. male seen today at longterm facility for therapy visit. Myra is in [...] polyneuropathy associated with type 2 diabetes mellitus ([facility]) 4. Other abnormalities of gait and mobility 5. Muscle spasm I'm going to add baclofen 10 mg Q6hrs prn spasm. D/C januvia since he is on Trulicity. Continue therapy and other orders as directed. All medications reviewed and are medically necessary. ELECTRONICALLY SIGNED BY: Guero Tam DO documented in this encounterGrant HospitalCost Effective Data [id number] History of Present illness Narrative* Guero Tam [...] and grafts Fibromyalgia Atherosclerotic heart disease of cahu[place] coronary artery without angina pectoris GERD glaucoma Gout Hyperlipidemia Essential hypertension Migraine Polyneuropathy Obstructive and reflux uropathy RLS Osteoarthritis Dorsalgia Benign prostatic hyperplasia with lower urinary tract symptoms Bilateral carpal tunnel syndrome Heart failure unspecified Nicotine dependence of cigarettes Plan: Admit to [facility] for therapies. continue medications. Full code Renew oxycodone 10 mg Q6hrs prn Good rehab potential. Discharge to home when able to safely discharge documented in this encounterGrant Hospitalcentrose Beaumont [id number] Hospital Discharge instructions Patient Education 02/21/2024 14:36:02 [...] to cope with stress. General instructions Take nkpy-jym-tmmlopj and prescription medicines only as told by [...] department or: Call your local emergency services (947 in the [place] Call a suicide crisis helpline, such as the National Suicide Prevention Lifeline at or 894 in the [place] This is open 24 hours a day in the [place] Text the Crisis Text Line at 089221 (in the [place] Summary It will take [...] provider. Document Revised: 12/15/2021 Document Reviewed: 10/07/2021 Proviation Patient Education 2023 [employer]. Follow Up Care 02/09/2024 10:35:38 With:TERESA LYNCH DO, FAM Address: [address] [place] [address]- When: Unknown With:Mike Montes MD Address: [address] [place] [address]- When:2 weeks Comments:Call for followup appointment [facility] 09-18-2024 NoteDischarge Summary Admission and Discharge [...] Contact Information TERESA LYNCH DO, FAM [address] [place] [address]- Additional Instructions: Simon HERRERA, Mike Weathers Within 2 weeks [address] [place] [address]- Additional Instructions: Call for followup appointment Patient Education Living With an AmputationNorwalk Memorial HospitalComment on above:Result Comment: Electronically Signed By: Raulito Gilliland DO\.br\Date and Time Signed: 02/21/24 15:01 [id number] Evaluation + Plan noteExtracted from: Title:Discharge Note [...] With When Contact Information TERESA LYNCH DO, [facility] [address] [place] [address]- Additional Instructions: Simon HERRERA, Mike FMary Within 2 weeks [address] [place] [address]- Additional Instructions: Call for followup appointment Living With an Amputation Extracted from: Title:APSO Note Author:Raulito Gilliland DO Ankur e:02/21/24 Patient is a 58-year-old mal e with past medical history of MD/CAD, heart failure, GERD, HTN, COPD, insulin-dependent type [...] daily to aid in wound healing Ordered: [facility] Hospital Care/Day Straight Fwd 25 Minutes 89798 2. Leukocytosis (D72.829: Elevated white blood cell [...] artery disease (I25.10: Atherosclerotic heart disease of cahu[place] coronary artery without angina pectoris) Aspirin, atorvastatin 80 mg p.o. daily, Plavix Metoprolol, isosorbide mononitrate, Lasix 9. Tobacco abuse (Z72.0: Tobacco use) Counseled on cessation. Nicotine patch. Orders: Capillary Glucose POC CBC w/ Auto Diff Change Attending Extracted from: Title:APSO Note Author:Ben Corrigan III, DO Date:02/20/24 Patient is a 58-year-old mal e with past medical history of MD/CAD, heart failure, GERD, HTN, COPD, insulin-dependent type [...] Auto Diff CBC w/ Auto Diff eGFR [facility] Hospital Care/Day Moderate 35 Minutes 13303 2. Leukocytosis (D72.829: Elevated white blood cell count, unspecified) Likely reactive with nausea and vomiting overnight. Will continue to monitor closely. No signs of infection of surgical wound. Follow-up a.m. labs. 3. Essential hypertension (I10: Essential (primary) hypertension) Metoprolol, isosorbide mononitrate, Lasix. Well-controlled. Ordered: [facility] Hospital Care/Day Moderate 35 Minutes 85886 4. Hyperlipidemia (E78.5: Hyperlipidemia, unspecified) Statin Ordered: [facility] Hospital Care/Day Moderate 35 Minutes 32508 5. Anemia (D64.9: Anemia, unspecified) Acute on chronic. Stable postoperatively. Will continue to monitor closely Ordered: Basic Metabolic Panel CBC w/ Auto Diff [facility] Hospital Care/Day Moderate 35 Minutes 64601 6. 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 (E11.42: Type 2 diabetes mellitus with diabetic polyneuropathy) Glimepiride 2 mg p.o. twice daily, glargine 35 units nightly, lispro 5 units with meals, BGT ACHS, sliding scale insulin as needed with meals Poorly controlled. Increased glargine to 35 units nightly om 02/18 from 30 units nightly. Ordered: [facility] Hospital Care/Day Moderate 35 Minutes 49009 7. Stage 3 chronic kidney disease (N18.30: Chronic kidney disease, stage 3 unspecified) Creatinine 1.8. Baseline 1.5-1.6. Monitor closely. Ordered: Basic Metabolic Panel CBC w/ Auto Diff eGFR [facility] Hospital Care/Day Moderate 35 Minutes 54378 8. Coronary artery disease (I25.10: Atherosclerotic heart disease of cahu[place] coronary artery without angina pectoris) Aspirin, atorvastatin 80 mg p.o. daily, Plavix Metoprolol, isosorbide mononitrate, Lasix Ordered: [facility] Hospital Care/Day Moderate 35 Minutes 50111 9. Tobacco abuse (Z72.0: Tobacco use) Counseled on cessation. Nicotine patch. Orders: oxycodone, 10 mg = 2 tab(s), Tab, Oral, q4hr PRN Pain for 5 day(s), Stop date 02/25/24 19:00:00 EDT, Routine, Start date 02/20/24 19:01:00 EDT, 02/20/24 19:01:00 EDT Extracted from: Title:APSO Note Author:HeathBen loya III, DO Date:02/19/24 Patient is a 58-year-old mal e with past medical history of MD/CAD, heart failure, GERD, HTN, COPD, insulin-dependent type [...] Basic Metabolic Panel CBC w/ Auto Diff [facility] Hospital Care/Day Moderate 35 Minutes 50401 2. Essential hypertension (I10: Essential (primary) hypertension) Metoprolol, isosorbide mononitrate, Lasix. Well-controlled. Ordered: [facility] Hospital Care/Day Moderate 35 Minutes 96346 3. Hyperlipidemia (E78.5: Hyperlipidemia, unspecified) Statin Ordered: [facility] Hospital Care/Day Moderate 35 Minutes 29690 4. Anemia (D64.9: Anemia, unspecified) Acute on chronic. Stable postoperatively. Will continue to monitor closely Ordered: CBC w/ Auto Diff [facility] Hospital Care/Day Moderate 35 Minutes 94418 5. 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 (E11.42: Type 2 diabetes mellitus with diabetic polyneuropathy) Glimepiride 2 mg p.o. twice daily, glargine 30 units nightly, lispro 5 units with meals, BGT ACHS, sliding scale insulin as needed with meals Poorly controlled. Will increase glargine to 35 units nightly. Ordered: [facility] Hospital Care/Day Moderate 35 Minutes 64813 6. Stage 3 chronic kidney disease (N18.30: Chronic kidney disease, stage 3 unspecified) Creatinine 1.7. Baseline 1.5-1.6. Monitor closely. Ordered: Basic Metabolic Panel [facility] Hospital Care/Day Moderate 35 Minutes 58361 7. Coronary artery disease (I25.10: Atherosclerotic heart disease of cahu[place] coronary artery without angina pectoris) Aspirin, atorvastatin [...] artery disease (I25.10: Atherosclerotic heart disease of [place] coronary artery without angina pectoris) continue plavix [...] Pain control PT/OT discharge to rehab Ordered: [facility] Hospital Care/Day High 50 Minutes [address] [facility] Hospital Care/Day Moderate 35 Minutes 88243 2. Essential hypertension (I10: Essential (primary) hypertension) good control continue to hold losartan continue lasix and imdur monitor BP Ordered: [facility] Hospital Care/Day High 50 Minutes 67621 [facility] Hospital Care/Day Moderate 35 Minutes 21994 3. Hyperlipidemia (E78.5: Hyperlipidemia, unspecified) continue statin Ordered: [facility] Hospital Care/Day High 50 Minutes 01695 [facility] Hospital Care/Day Moderate 35 Minutes 19405 4. Anemia (D64.9: Anemia, unspecified) Acute Blood loss anemia, possibly post surgical loss hgb has remained stable post transfusion continue to monitor CBC today Ordered: [facility] Hospital Care/Day High 50 Minutes 10969 [facility] Hospital Care/Day Moderate 35 Minutes 81353 5. 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 Stage 3 chronic kidney disease (N18.30: Chronic kidney disease, stage 3 unspecified) Overall renal function is stable continue to monitor Ordered: [facility] Hospital Care/Day High 50 Minutes 43246 [facility] Hospital Care/Day Moderate 35 Minutes 76248 7. Coronary artery disease (I25.10: Atherosclerotic heart disease of [place] coronary artery without angina pectoris) On home medication/ continue plavix and statin Ordered: [facility] Hospital Care/Day High 50 Minutes 59001 [facility] Hospital Care/Day Moderate 35 Minutes 21695 8. Tobacco abuse (Z72.0: Tobacco use) nicotine patch Ordered: [facility] Hospital Care/Day High 50 Minutes 66158 [facility] Hospital Care/Day Moderate 35 Minutes 57584 Orders: acetaminophen-oxycodone, 2 tab(s), Tab, Oral, [id number], Routine, Start date 02/16/24 14:00:00 EDT heparin, [...] [facility] Care/Day High 50 Minutes 18248 [facility] Care/Day High 50 Minutes 65283 2. Essential hypertension (I10: Essential (primary) hypertension) had to held lasix this morning due to low BP continue other home meds, Imdur, Ordered: Basic Metabolic Panel CBC w/ Auto Diff eGFR Path. [facility] Care/Day High 50 Minutes 50817 [facility] 50 Minutes 28756 3. Hyperlipidemia (E78.5: Hyperlipidemia, unspecified) continue statin Ordered: Basic Metabolic Panel CBC w/ Auto Diff eGFR Path. [facility] Care/Day High 50 Minutes 56239 [facility] High 50 Minutes 53607 4. Anemia (D64.9: Anemia, unspecified) hgb is stable post transfusion at 7.6 since patient is stable, will start heparin prophylaxis Ordered: Basic Metabolic Panel CBC w/ Auto Diff eGFR Path. [facility] 50 Minutes 02808 [facility] High 50 Minutes 08732 5. 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 [facility] High 50 Minutes 69947 [facility]Day High 50 Minutes 13476 6. Stage 3 chronic kidney disease (N18.30: Chronic kidney disease, stage 3 unspecified) stable continue to monitor Ordered: Basic Metabolic Panel CBC w/ Auto Diff eGFR Path. [facility] Care/Day High 50 Minutes 62009 [facility] High 50 Minutes 62127 7. Coronary artery disease (I25.10: Atherosclerotic heart disease of [place] coronary artery without angina pectoris) overall stable continue plavix Ordered: Basic Metabolic Panel CBC w/ Auto Diff eGFR Path. [facility] Care/Day High 50 Minutes 09231 [facility] High 50 Minutes 11150 8. Tobacco abuse (Z72.0: Tobacco use) nicotine patch Ordered: Basic Metabolic Panel CBC w/ Auto Diff eGFR Path. [facility] Care/Day High 50 Minutes 73225 [facility] High 50 Minutes 68965 Orders: acetaminophen-oxycodone, 2 tab(s), Tab, Oral, [id number], Routine, Start date 02/16/24 14:00:00 EDT heparin, [...] Diff [facility] Hospital Care/Day High 50 Minutes 93565 2. Essential hypertension (I10: Essential (primary) hypertension) good control continue current medications Ordered: Basic Metabolic Panel CBC w/ Auto Diff [facility] Hospital Care/Day High 50 Minutes 70503 3. Hyperlipidemia (E78.5: Hyperlipidemia, unspecified) statin Ordered: Basic Metabolic Panel CBC w/ Auto Diff [facility] Hospital Care/Day High 50 Minutes 38500 4. Anemia (D64.9: Anemia, unspecified) hgb has remained stable since transfusion hgb is 7.7. i thought it should be higher than than considering that he received 2 units of PRBC. Ordered: Basic Metabolic Panel CBC w/ Auto Diff [facility] Hospital Care/Day High 50 Minutes 17561 5. 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 (E11.42: Type 2 diabetes mellitus with diabetic polyneuropathy) BGL is poorly controlled diabetic diet increase lantus to 25 units QHS accucheck achs Ordered: Basic Metabolic Panel CBC w/ Auto Diff [facility] Hospital Care/Day High 50 Minutes 00140 6. Stage 3 chronic kidney disease (N18.30: Chronic kidney disease, stage 3 unspecified) overall stable, but noted mild increase in creatinine today contiue to monitor Ordered: Basic Metabolic Panel CBC w/ Auto Diff [facility] Hospital Care/Day High 50 Minutes 17216 7. Coronary artery disease (I25.10: Atherosclerotic heart disease of [place] coronary artery without angina pectoris) Plavix for secondary prophylaxis Ordered: Basic Metabolic Panel CBC w/ Auto Diff [facility] Hospital Care/Day High 50 Minutes 35902 8. Tobacco abuse (Z72.0: Tobacco use) nicotine patch Ordered: Basic Metabolic Panel CBC w/ Auto Diff [facility] Hospital Care/Day High 50 Minutes 50206 Orders: insulin glargine, 25 unit(s), Injection-Insulin, SubCutaneous, [...] dilaudid PT/OT appreciate Vascular team recommendations Ordered: [facility] Hospital Care/Day High 50 Minutes 54312 2. Essential hypertension (I10: Essential (primary) hypertension) Better compared to yesterday. continue current management currently on lasix, losartan, metoprolol and imdur. seems to be too much BP meds since BP is about 120s. continue to monitor BP. Ordered: [facility] Hospital Care/Day High 50 Minutes 88704 3. Hyperlipidemia (E78.5: Hyperlipidemia, unspecified) continue statin Ordered: [facility] Hospital Care/Day High 50 Minutes 67145 4. Anemia (D64.9: Anemia, unspecified) Acute on chronic anemia due to surgical intervention hgb has remained stable since transfusion continue to monitor h and h Ordered: [facility] Hospital Care/Day High 50 Minutes 30160 5. 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 continue lantus at current dose continue Jardiance and Glimipiride Ordered: [facility] Hospital Care/Day High 50 Minutes 31596 6. Stage 3 chronic kidney disease (N18.30: Chronic kidney disease, stage 3 unspecified) possible due to complication of DM. monitor renal function. creatinine at baseline of 1.9. needs out patient follow up for Nephro recommendation 7. Coronary artery disease (I25.10: Atherosclerotic heart disease of [place] coronary artery without angina pectoris) continue plavix and asa as ordered Orders: acetaminophen-oxycodone, 1 tab(s), Tab, Oral, [id number], Routine, Start date 02/13/24 13:00:00 EDT furosemide, [...] Ordered: [facility] Care/Day High 75 Minutes 93849 2. Essential hypertension (I10: Essential (primary) hypertension) BP on the low side today unsure if this is related to ?Anemia hold Losartan monitor BP, if still low, will bolus. Ordered: [facility] Hospital Care/Day High 75 Minutes 89457 3. Hyperlipidemia (E78.5: Hyperlipidemia, unspecified) statin Ordered: [facility] Hospital Care/Day High 75 Minutes 63403 4. Anemia (D64.9: Anemia, unspecified) Acute on chronic anemia. acute loss due to post op blood loss transfused 2 units of PRBC today. continue to monitor will hold asa and plavix for now and resume when Anemia improves or stabilized Also hold off on anticoagulation until anemia stabilizes can do scd on left leg Ordered: [facility] Care/Day High 75 Minutes 93026 5. 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 (E11.42: Type 2 diabetes mellitus with diabetic polyneuropathy) poorly controlled diabetic diet continue glimipiride, lantus and januvia Monitor BGL and treate with sliding scale as needed Ordered: [facility] Care/Day High 75 Minutes 98094 Orders: acetaminophen-oxycodone, 1 tab(s), Tab, Oral, [id number], Routine, Start date 02/13/24 13:00:00 EDT amitriptyline, [...] Author:Zachary morrow MD, Ahmad F Date:02/12/24 Plan [place] [employer] (ASA) physical status classification: [...] US PVR Lower EXT Complete Bilat 11/20/23 [facility] 09-18-2024 NotePeripheral smear evaluation:[facility]:Performed By: #### [id number] #### [facility] [address], [place] [id number] NoteProgress Note-Physician Assessment/Plan Patient is a 58-year-old male with past medical history of MD/CAD, heart failure, GERD, HTN, COPD, insulin-dependent type [...] daily to aid in wound healing Ordered: [facility] Hospital Care/Day Straight Fwd 25 Minutes 99237 2. Leukocytosis (D72.829: Elevated white blood cell [...] artery disease (I25.10: Atherosclerotic heart disease of [place] coronary artery withoutangina pectoris) ? Aspirin, atorvastatin [...] Lymph Auto: 12.4 % Low (02/21/24 06:02:00) [place] Auto: 8.7 % (02/21/24 06:02:00) Eos Auto: 3.6 % (02/21/24 06:02:00) Basophil Auto: 0.7 % (02/21/24 06:02:00) Neutro Absolute: 9.3 E9/L High (02/21/24 06:02:00) Lymph Absolute: 1.5 E9/L (02/21/24 06:02:00) [place] Absolute: 1.1 E9/L High (02/21/24 06:02:00) Eos [...] High (02/21/24 10:49: (more content not included)... [facility]:Result Comment: Electronically Signed By: Raulito Gilliland DO\.br\Date and Time Signed: 02/21/24 10:56 EDT 02-20-2024 NoteProgress Note-Physician Assessment/Plan Patient is a 58-year-old male with past medical history of MD/CAD, heart failure, GERD, HTN, COPD, insulin-dependent type [...] Auto Diff CBC w/ Auto Diff eGFR [facility] Hospital Care/Day Moderate 35 Minutes 79552 2. Leukocytosis (D72.829: Elevated white blood cell count, unspecified) ? Likely reactive with nausea and vomiting overnight. Will continue to monitor closely. No signs ofinfection of surgical wound. Follow-up a.m. labs. 3. Essential hypertension (I10: Essential (primary) hypertension) ? Metoprolol, isosorbide mononitrate, Lasix. Well-controlled. Ordered: [facility] Hospital Care/Day Moderate 35 Minutes 18168 4. Hyperlipidemia (E78.5: Hyperlipidemia, unspecified) ? Statin Ordered: [facility] Hospital Care/Day Moderate 35 Minutes 56683 5. Anemia (D64.9: Anemia, unspecified) ? Acute on chronic. Stable postoperatively. Will continue to monitor closely Ordered: Basic Metabolic Panel CBC w/ Auto Diff [facility] Hospital Care/Day Moderate 35 Minutes 70082 6. 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 Glimepiride 2 mg p.o. twice daily, glargine 35 units nightly, lispro 5 units with meals, BGT ACHS, sliding scale insulin as needed with meals ?Poorly controlled. Increased glargine to 35 units nightly om 16 from 30 units nightly. Ordered: [facility] Hospital Care/Day Moderate 35 Minutes 38604 7. Stage 3 chronic kidney disease (N18.30: Chronic kidney disease, stage 3 unspecified) ? Creatinine 1.8. Baseline 1.5-1.6. Monitor closely. Ordered: Basic Metabolic Panel CBC w/ Auto Diff eGFR [facility] Hospital Care/Day Moderate 35 Minutes 69075 8. Coronary artery disease (I25.10: Atherosclerotic heart disease of [place] coronary artery withoutangina pectoris) ? Aspirin, atorvastatin 80 mg p.o. daily, Plavix ? Metoprolol, isosorbide mononitrate, Lasix Ordered: [facility] Hospital Care/Day Moderate 35 Minutes 22491 9. Tobacco abuse (Z72.0: Tobacco use) ? [...] the indicated time period. (more content not included)...[facility] on above:Result Comment: Electronically Signed By: Ben Corrigan III, DO.br\Date and Time Signed: 02/20/24 19:09 [id number] NoteProgress Note-Physician Assessment/Plan Patient is a 58-year-old male with past medical history of MD/CAD, heart failure, GERD, HTN, COPD, insulin-dependent type [...] Basic Metabolic Panel CBC w/ Auto Diff [facility] Moderate 35 Minutes 09587 2. Essential hypertension (I10: Essential (primary) hypertension) ? Metoprolol, isosorbide mononitrate, Lasix. Well-controlled. Ordered: [facility] Moderate 35 Minutes 70252 3. Hyperlipidemia (E78.5: Hyperlipidemia, unspecified) ? Statin Ordered: [facility] Hospital Care/Day Moderate 35 Minutes 37120 4. Anemia (D64.9: Anemia, unspecified) ? Acute on chronic. Stable postoperatively. Will continue to monitor closely Ordered: CBC w/ Auto Diff [facility] Hospital Care/Day Moderate 35 Minutes 17031 5. 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 Glimepiride 2 mg p.o. twice daily, glargine 30 units nightly, lispro 5 units with meals, BGT ACHS, sliding scale insulin as needed with meals ?Poorly controlled. Will increase glargine to 35 units nightly. Ordered: [facility] Hospital Care/Day Moderate 35 Minutes 04791 6. Stage 3 chronic kidney disease (N18.30: Chronic kidney disease, stage 3 unspecified) ? Creatinine 1.7. Baseline 1.5-1.6. Monitor closely. Ordered: Basic Metabolic Panel [facility] Hospital Care/Day Moderate 35 Minutes 00067 7. Coronary artery disease (I25.10: Atherosclerotic heart disease of [place] coronary artery withoutangina pectoris) ? Aspirin, atorvastatin [...] Exam General: alert, no (more content not included)...[facility] Comment on above:Result Comment: Electronically Signed By: Ben Corrigan III, DO\Date and Time Signed: 02/19/24 17:00 [id number] NoteProgress Note-Physician Patient: MYRA PICKARD SR Age: 58 years Sex: Male : 1965 Associated Diagnoses: None Author: MD Juanito, Laura Rodriguez Postoperative Information Postoperative disposition: Postoperative disposition: To PACU. Optimetrix number: Optimetrix number [id number]. Anesthetic utilized: General. Health Status Allergies: Allergic [...] Discharge when meets criteria ( To home ).[facility] HospitalComment on above:Result Comment: Electronically Signed [...] mg oral tablet: 2 tab(s), Tab, Oral, [id number], Routine, Start date 02/16/24 14:00:00 EDT Plavix [...] cap(s), Oral, B (more content not included)... [facility] HospitalComment on above:Result Comment: Electronically Signed [...] artery disease (I25.10: Atherosclerotic heart disease of [place] coronary artery withoutangina pectoris) continue plavix as [...] mg/dL High (02/18/24 11:32:00) POC Device SN: [id number] (02/18/24 11:32:00) POC User ID: [id number] (02/18/24 11:32:00) POC Username: RAJESH OSEGUERA (02/18/24 11:32:00) Problem List/Past Medical History Ongoing Arthritis Asthma BPH with obstruction/lower urinary tract symptoms COPD type A Fibromyalgia Gross hematuria Head ache Heart attack Heart disease Heart murmur Hyperlipidemia Orchitis Restless leg Smoker Urinary retention Historical CHF (congestive heart failure) GERD [Gastroesophageal reflux disease] HTN [Hypertension] MD (myocardial infarction) NIDDM Medications Inpatient acetaminophen 325 [...] mg-325 mg oral tablet, 2 tab(s), Oral, [id number] Plavix 75 mg Tab, 75 mg= 1 tab(s), Oral, Daily polyethylene glycol 335 (more content not included)...[facility] HospitalComment on above:Result Comment: Electronically Signed By: Marisela HERRERA, Elan Humphrey.nile\Date and Time Signed: 02/18/24 13:45 [id number] NoteProgress Note-Physician Assessment/Plan Goal: 1. Aggressive bowel regimen as ordered 2. Monitor hgb 3. Monitor BGL, better controlled but still elevated. DVT prophylaxis with heparin if tolerated. 1. 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 Essential hypertension (I10: Essential (primary) hypertension) good control continue to hold losartan continue lasix and imdur monitor BP Ordered: [facility] Hospital Care/Day High 50 Minutes 18774 [facility] Hospital Care/Day Moderate 35 Minutes 66690 3. Hyperlipidemia (E78.5: Hyperlipidemia, unspecified) continue statin Ordered: [facility] Hospital Care/Day High 50 Minutes 01439 [facility] Hospital Care/Day Moderate 35 Minutes 38384 4. Anemia (D64.9: Anemia, unspecified) Acute Blood loss anemia, possibly post surgical loss hgb has remained stable post transfusion continue to monitor CBC today Ordered: [facility] Hospital Care/Day High 50 Minutes 21680 [facility] Hospital Care/Day Moderate 35 Minutes 26535 5. 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 (E11.42: Type 2 diabetes mellitus with diabetic polyneuropathy) BGL is better controlled today compared to yesterday continue current insulin dose with sliding scale If BGl continues to be elevated during the day today, will start meal time scheduled coverage Ordered: [facility] Hospital Care/Day High 50 Minutes 98286 [facility] Hospital Care/Day Moderate 35 Minutes 42739 6. Stage 3 chronic kidney disease (N18.30: Chronic kidney disease, stage 3 unspecified) Overall renal function is stable continue to monitor Ordered: [facility] Hospital Care/Day High 50 Minutes 57015 [facility] Hospital Care/Day Moderate 35 Minutes 89236 7. Coronary artery disease (I25.10: Atherosclerotic heart disease of [place] coronary artery withoutangina pectoris) On home medication/ continue plavix and statin Ordered: [facility] Hospital Care/Day High 50 Minutes 14785 [facility] Hospital Care/Day Moderate 35 Minutes 72613 8. Tobacco abuse (Z72.0: Tobacco use) nicotine patch Ordered: [facility] Hospital Care/Day High 50 Minutes 36619 [facility] Hospital Care/Day Moderate 35 Minutes 47887 Orders: acetaminophen-oxycodone, 2 tab(s), Tab, Oral, [id number], Routine, Start date 02/16/24 14:00:00 EDT heparin, [...] (02/17/24 07:49:00) POC Dev (more content not included)...[facility] Hospital[facility] on above:Result Comment: Electronically Signed By: Marisela HERRERA, Elan Robbins\.br\Date and Time Signed: 02/17/24 10:36 [id number] NoteProgress Note-Physician Assessment/Plan Goals: 1. 2 time [...] Review [facility] Care/Day High 50 Minutes 17248 [facility] 50 Minutes 94118 2. Essential hypertension (I10: Essential (primary) hypertension) had to held lasix this morning due to low BP continue other home meds, Imdur, Ordered: Basic Metabolic Panel CBC w/ Auto Diff eGFR Path. [facility] 50 Minutes 42480 [facility]Day High 50 Minutes 64125 3. Hyperlipidemia (E78.5: Hyperlipidemia, unspecified) continue statin Ordered: Basic Metabolic Panel CBC w/ Auto Diff eGFR Path. Review [facility] High 50 Minutes 74392 [facility]Day High 50 Minutes 01429 4. Anemia (D64.9: Anemia, unspecified) hgb is stable post transfusion at 7.6 since patient is stable, will start heparin prophylaxis Ordered: Basic Metabolic Panel CBC w/ Auto Diff eGFR Path. Review [facility] Hospital Care/Day High 50 Minutes 50727 [facility] Hospital Care/Day High 50 Minutes 88147 5. 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 Review [facility] Hospital Care/Day High 50 Minutes 98184 [facility] Hospital Care/Day High 50 Minutes 36561 6. Stage 3 chronic kidney disease (N18.30: Chronic kidney disease, stage 3 unspecified) stable continue to monitor Ordered: Basic Metabolic Panel CBC w/ Auto Diff eGFR Path. Review [facility] Hospital Care/Day High 50 Minutes 56197 [facility] Hospital Care/Day High 50 Minutes 68417 7. Coronary artery disease (I25.10: Atherosclerotic heart disease of [place] coronary artery withoutangina pectoris) overall stable continue plavix Ordered: Basic Metabolic Panel CBC w/ Auto Diff eGFR Path. Review [facility] Hospital Care/Day High 50 Minutes 36750 [facility] Hospital Care/Day High 50 Minutes 89704 8. Tobacco abuse (Z72.0: Tobacco use) nicotine patch Ordered: Basic Metabolic Panel CBC w/ Auto Diff eGFR Path. Review [facility] Hospital Care/Day High 50 Minutes 80007 [facility] Hospital Care/Day High 50 Minutes 55841 Orders: acetaminophen-oxycodone, 2 tab(s), Tab, Oral, [id number]-YY, Routine, Start date 02/16/24 14:00:00 EDT heparin, [...] no adenopathy, no tenderness (more content not included)...[facility] on above:Result Comment: Electronically Signed By: Marisela HERRERA, Elan Humphrey.br\Date and Time Signed: 02/16/24 13:30 [id number] NotePath ReviewPeripheral smear evaluation: - Moderate microcytic and hypochromic anemia with anisopoikilocytosis. - White blood cell and Platelet: Unremarkable. Comment: Recommend clinical correlation and rule out iron deficiency anemia. CPT: 67716 Blair Blood MD 02/21/2024 12:59:29 EDT *NA* (02/16/24 6:12 AM)[facility] [place] 09-12-2024 NoteProgress Note-Physician Assessment/Plan Goal: 1. [...] Diff [facility] Hospital Care/Day High 50 Minutes 23317 2. Essential hypertension (I10: Essential (primary) hypertension) good control continue current medications Ordered: Basic Metabolic Panel CBC w/ Auto Diff [facility] Hospital Care/Day High 50 Minutes 00597 3. Hyperlipidemia (E78.5: Hyperlipidemia, unspecified) statin Ordered: Basic Metabolic Panel CBC w/ Auto Diff [facility] Hospital Care/Day High 50 Minutes 12901 4. Anemia (D64.9: Anemia, unspecified) hgb has remained stable since transfusion hgb is 7.7. i thought it should be higher than than considering that he received 2 units of PRBC. Ordered: Basic Metabolic Panel CBC w/ Auto Diff [facility] Hospital Care/Day High 50 Minutes 16289 5. 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 (E11.42: Type 2 diabetes mellitus with diabetic polyneuropathy) BGL is poorly controlled diabetic diet increase lantus to 25 units QHS accucheck achs Ordered: Basic Metabolic Panel CBC w/ Auto Diff [facility] Hospital Care/Day High 50 Minutes 43782 6. Stage 3 chronic kidney disease (N18.30: Chronic kidney disease, stage 3 unspecified) overall stable, but noted mild increase in creatinine today contiue to monitor Ordered: Basic Metabolic Panel CBC w/ Auto Diff [facility] Hospital Care/Day High 50 Minutes 03489 7. Coronary artery disease (I25.10: Atherosclerotic heart disease of [place] coronary artery withoutangina pectoris) Plavix for secondary prophylaxis Ordered: Basic Metabolic Panel CBC w/ Auto Diff [facility] Care/Day High 50 Minutes 92654 8. Tobacco abuse (Z72.0: Tobacco use) nicotine patch Ordered: Basic Metabolic Panel CBC w/ Auto Diff [facility] Care/Day High 50 Minutes 10412 Orders: insulin glargine, 25 unit(s), Injection-Insulin, SubCutaneous, [...] Hct: 22.2 % Low (more content not included)...[facility] HospitalComment on above:Result Comment: Electronically Signed By: Marisela HERRERA, Elan Humphrey.nile\Date and Time Signed: 02/15/24 13:28 [id number] NoteInterdisciplinary Note - PT PT Evaluation completed with an [facility] score of . Pt was able to perform bed mobility with Mod I and transfers with CGA/Min A. Pt was able to ambulate 4 feet with FWW, but does fatigue easily. Ptdoes report increased pain in right stump, but still maintained activity well. Pt will need furtherrehabilitation SNF in order to return home again safelyNorwalk Memorial Hospital09-11-2024 NoteProgress Note-Physician Assessment/Plan 1. 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 due to poor pain control, I discontinued IV morphine and switched to IV dilaudid PT/OT appreciate Vascular team recommendations Ordered: [facility] Hospital Care/Day High 50 Minutes 80837 2. Essential hypertension (I10: Essential (primary) hypertension) Better compared to yesterday. continue current management currently on lasix, losartan, metoprolol and imdur. seems to be too much BP meds since BP is about 120s. continue to monitor BP. Ordered: [facility] Hospital Care/Day High 50 Minutes 85065 3. Hyperlipidemia (E78.5: Hyperlipidemia, unspecified) continue statin Ordered: [facility] Hospital Care/Day High 50 Minutes 71300 4. Anemia (D64.9: Anemia, unspecified) Acute on chronic anemia due to surgical intervention hgb has remained stable since transfusion continue to monitor h and h Ordered: [facility] Hospital Care/Day High 50 Minutes 46309 5. 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 continue lantus at current dose continue Jardiance and Glimipiride Ordered: [facility] Hospital Care/Day High 50 Minutes 44537 6. Stage 3 chronic kidney disease (N18.30: Chronic kidney disease, stage 3 unspecified) possible due to complication of DM. monitor renal function. creatinine at baseline of 1.9. needs out patient follow up for Nephro recommendation 7. Coronary artery disease (I25.10: Atherosclerotic heart disease of [place] coronary artery withoutangina pectoris) continue plavix and asa as ordered Orders: acetaminophen-oxycodone, 1 tab(s), Tab, Oral, [id number], Routine, Start date 02/13/24 13:00:00 EDT furosemide, [...] Extremities: right BKA Debbie (more content not included)...[facility] HospitalComment on above: Result Comment: Electronically Signed By: Marisela HERRERA, Elan Robbins\.br\Date and Time Signed: 02/14/24 09:57 [id number] NoteProgress Note-Physician Assessment/Plan 1. 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 appreciate additional recommendation from Vascular team Ordered: [facility] Care/Day High 75 Minutes 82025 2. Essential hypertension (I10: Essential (primary) hypertension) BP on the low side today unsure if this is related to ?Anemia hold Losartan monitor BP, if still low, will bolus. Ordered: [facility] Hospital Care/Day High 75 Minutes 09265 3. Hyperlipidemia (E78.5: Hyperlipidemia, unspecified) statin Ordered: Initial Hospital Care/Day High 75 Minutes 47576 4. Anemia (D64.9: Anemia, unspecified) Acute on chronic anemia. acute loss due to post op blood loss transfused 2 units of PRBC today. continue to monitor will hold asa and plavix for now and resume when Anemia improves or stabilized Also hold off on anticoagulation until anemia stabilizes can do scd on left leg Ordered: Initial Hospital Care/Day High 75 Minutes 73974 5. 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 (E11.42: Type 2 diabetes mellitus with diabetic polyneuropathy) poorly controlled diabetic diet continue glimipiride, lantus and januvia Monitor BGL and treate with sliding scale as needed Ordered: Initial Hospital Care/Day High 75 Minutes 59544 Orders: acetaminophen-oxycodone, 1 tab(s), Tab, Oral, [id number], Routine, Start date 02/13/24 13:00:00 EDT amitriptyline, [...] He is now interested in going to [facility] to get PT to enable him [...] Back: No tenderness, Luzmaria (more content not included)...[facility] HospitalComment on above:Result Comment: Electronically Signed By: Marisela HERRERA, Elan Humphrey.nile\Date and Time Signed: 02/13/24 12:25 [id number] NoteHistory and Physical History of Present Illness [...] mg/dL High (02/12/24 17:15:00) POC Device SN: [id number] (02/12/24 17:15:00) POC User ID: [id number] (02/12/24 17:15:00) POC Username: POC Username (02/12/24 [...] a day (at bedti (more content not included)...[facility] HospitalComment on above:Result Comment: Electronically Signed By: Marisela HERRERA, Elan Robbins\.br\Date and Time Signed: 02/12/24 18:34 [id number] Evaluation + Plan note* Assessment & Plan Note - Mike Montes MD - 01/18/2024 9:04 AM EDTAssociated Problem(s): Cigarette smoker Counseled him on smoking cessation at length. He is willing to quit. [facility]08-15-2024 Miscellaneous Notes* Assessment & Plan Note - Mike Montes MD - 01/18/2024 9:04 AM EDTAssociated Problem(s): Cigarette smoker Counseled him on smoking cessation at length. He is willing to quit. * Assessment & Plan Note - Mike Montes MD - 01/18/2024 9:03 AM EDT Associated Problem(s): 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 ([facility]) Right below-knee amputation. Will do it here at [place]. documented in this encounterMemorial Health System [facility] Hospital08-15-2024 Evaluation + Plan note* Assessment & Plan Note - Mike Montes MD - 01/18/2024 9:03 AM EDT Associated Problem(s): 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 ([facility]) Right below-knee amputation. Will do it here at [place]. [facility]08-15-2024 History of Present illness Narrative* Mike [...] control exposed bone. The patient and his trommel tender are sending him for below-knee amputation. We [...] 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 ([facility]) Diabetes mellitus type 2, controlled ([facility]) GERD (gastroesophageal reflux disease) Hyperlipidemia Hypertension Past Surgical History: Past Surgical History: Procedure Laterality Date AMPUTATION FOOT / TOE Right 09/29/2023 APPENDECTOMY BYPASS ARTERY FEMORAL POPLITEAL Right 11/08/2023 Performed by Mike Montes MD at [facility] SPECIAL PROC CARDIAC CATHETERIZATION x4 heart stents COLONOSCOPY PROSTATE SURGERY SPINE SURGERY Vascular Invasive Right lower extremity angiogram with intervention/stent Right 11/07/2023 Performed by Mike Montes MD at [facility] CARDIAC CATH LABS Social and Family History: [...] below-knee amputation. Will do it here at [place]. Myra was seen today for angioplasty rle follow up - procedure at [facility]. yolanda and critical limb ischemia of right lower extremity with gangre. Diagnoses and all orders for this visit: 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 ([facility]) Mike Montes MD, BG, RPVI, FSVS, FACS [facility] This note was created with the assistance of a speech recognition program. While intending to generate a timely document that accurately reflects the content of the visit, no guarantee can be provided that every grammatical or spelling mistake has been or will be identified or corrected. Thank you for your understanding. documented in this encounterMemorial Health System Marietta [facility] Hospital08-15-2024 Instructions* Patient Instructions* Mike Montes MD - 01/18/2024 8:50 AM EDT Are You Ready To Kick The Habit? Free Tobacco Cessation Resources [facility] Tobacco Treatment Center Services [facility] Tobacco Treatment Centers provide all employees with free tobacco cessation services that include: Counseling to understand nicotine addiction Education about medications that can help you successfully quit Assistance with developing a plan to quit Call to set up an individual appointment or find out when group classes will be held: [facility]: [phone] [facility]: [phone] [facility]: [phone] [facility]: [phone] Quit Smoking Action Plan and Resources [facility] offers an eight-week, online smoking cessation plan to all [facility] employees, regardless of whether [employer] is your medical insurance provider. Go to [email or web address] and click the Health Risk Assessment and Resources link to get started. In the Rcgsy3Eowayq menu, click Action Plans instead of Health Risk Assessment to access the Quit Smoking Action Plan. Additional smoking cessation resources are also available to all [facility] employees on the Bigsa6Bfhnmh web page at [email or web address]. [employer] Tobacco Cessation Program If [employer] is your medical insurance provider, there are more free resources available to you, including: No copays or deductibles on local tobacco cessation counseling services to help you quit Prescription assistance for tobacco cessation medications to help you quit For details about the tobacco cessation program available to [employer] members, go to www.Keaton Rowcare.com (Search: Tobacco Cessation Program). [place] Tobacco Quit Line 0-189-HBZQ-NOW ( ) is a toll-free, telephonic service that helps [place] residents quit smoking and using tobacco. It is staffed by experts who tailor a quit plan for you and provide you with advice. [place] Tobacco Quit Line 4-711-MESX-NOW ( ) is a toll-free, telephonic service that helps [place] residents quit smoking and using tobacco. It is staffed by experts who tailor a quit plan for you and provide you with advice. Two weeks of nicotine replacement therapy may be provided at no charge, if needed. Additional Resources These national organizations also offer free information and resources to help you quit tobacco: Finnish Cancer Society--www.cancer.org/healthy/stayawayfromtobacco Finnish Heart Association--www.heart.org (Search: Quit Smoking) Centers for Disease Control and Prevention--www.cdc.gov/tobacco [place] Lung Association--www.lungusa.org documented in this encounterVermont Psychiatric Care HospitalAlbatross Security Forces [id number] NotePatient Education - Text [place], [place] Cardiovascular PCI DISCHARGE INSTRUCTIONS Diet: ? [...] for any reason without talking to your planing machine operator Site Care: ? Do not remove dressing [...] you are interested in smoking cessation, contact [facility] at [phone], ext. [phone]. ? In the event you are unable to reach your physician, please call Rosa at [phone] andthe moisture conditioner operator will assist you. Seek Medicare Care [...] your urine or stool ? Black tarry stoolsNorwalk Memorial Hospital08-05-2024 NoteProgress Note-Physician Procedure Airway Assessment: [...] ad Senait Vital Signs Vital Signs Vital SignsNorwalk Memorial HospitalComment on above: Result Comment: Electronically Signed By: Simon HERRERA, Mike Weathers\.br\Date and Time Signed: 01/08/24 16:02 [id number] Evaluation + Plan note* Assessment & Plan Note - Mike Montes MD - 12/21/2023 8:57 AM EDTAssociated Problem(s): 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 ([facility]) We did iliofemoral endarterectomy and femoral above-knee bypass. He has some residual tibial occlusive disease. I discussed with him doing right lower extremity angiogram and intervention. Will do this close to home at [facility]. [facility]07-18-2024 Miscellaneous Notes* Assessment & Plan Note - Mike Montes MD - 12/21/2023 8:57 AM EDTAssociated Problem(s): 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 ([facility]) We did iliofemoral endarterectomy and femoral above-knee bypass. He has some residual tibial occlusive disease. I discussed with him doing right lower extremity angiogram and intervention. Will do this close to home at [facility]. documented in this encounterMemorial Health System Marietta [facility] Hospital07-18-2024 History of Present illness Narrative* Mike [...] 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 ([facility]) Diabetes mellitus type 2, controlled ([facility]) GERD (gastroesophageal reflux disease) Hyperlipidemia Hypertension Past Surgical History: Past Surgical History: Procedure Laterality Date AMPUTATION FOOT / TOE Right 09/29/2023 APPENDECTOMY BYPASS ARTERY FEMORAL POPLITEAL Right 11/08/2023 Performed by Mike Montes MD at [facility] SPECIAL PROC CARDIAC CATHETERIZATION x4 heart stents COLONOSCOPY PROSTATE SURGERY SPINE SURGERY Vascular Invasive Right lower extremity angiogram with intervention/stent Right 11/07/2023 Performed by Mike Montes MD at [facility] CARDIAC CATH LABS Social and Family History: [...] Will do this close to home at [facility]. Diagnoses and all orders for this visit: [...] you for your understanding. documented in this encounterMemorial Health System Marietta Memorial Hospital06-27-2024 History of Present illness Narrative* Guero Tam, - 11/30/2023 11:10 PM EDT Patient Name: Myra Pickard Date of : 1965 Date of Service: 11/30/2023 Facility: [facility] Type of Visit: Skilled Visit Subjective Myra Pickard is a 58 y.o. male seen today at longterm facility for therapy visit. Myra is in [...] Exam Vitals reviewed. Exam conducted with a laborer salvage present (). Constitutional: General: He is not [...] BY: Guero Tam DO documented in this encounterMemorial Health System Marietta [facility] Hospital06-27-2024 Evaluation + Plan note* Assessment & Plan Note - Mike Montes MD - 11/30/2023 9:19 AM EDT Associated Problem(s): Cigarette smoker motivated to quit Counseled on smoking cessation for at least 3 minutes [facility]06-27-2024 Miscellaneous Notes* Assessment & Plan Note - Mike Montes MD - 11/30/2023 9:19 AM EDTAssociated Problem(s): Cigarette smoker motivated to quit Counseled on smoking cessation for at least 3 minutes documented in this encounterMemorial Health System Marietta Memorial Hospital06-27-2024 History of Present illness Narrative* Mike [...] 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 ([facility]) Cigarette smoker motivated to quit Plan [...] Mike Montes MD, BG documented in this encounterMemorial Health System Marietta [facility] Hospital06-27-2024 Instructions* Patient Instructions* Mkie Montes MD - 11/30/2023 8:50 AM EDT Are You Ready To Kick The Habit? Free Tobacco Cessation Resources [facility] Tobacco Treatment Center Services [facility] Tobacco Treatment Centers provide all employees with free tobacco cessation services that include: Counseling to understand nicotine addiction Education about medications that can help you successfully quit Assistance with developing a plan to quit Call to set up an individual appointment or find out when group classes will be held: [facility]: [phone] [facility]: [phone] [facility]: [phone] [facility]: [phone] Quit Smoking Action Plan and Resources [facility] offers an eight-week, online smoking cessation plan to all [facility] employees, regardless of whether [employer] is your medical insurance provider. Go to [email or web address] and click the Health Risk Assessment and Resources link to get started. In the Yulex menu, click Action Plans instead of Health Risk Assessment to access the Quit Smoking Action Plan. Additional smoking cessation resources are also available to all [facility] employees on the Xrjwd0Zebssb web page at [email or web address].[email or web address]. [employer] Tobacco Cessation Program If [employer] is your medical insurance provider, there are more free resources available to you, including: No copays or deductibles on local tobacco cessation counseling services to help you quit Prescription assistance for tobacco cessation medications to help you quit For details about the tobacco cessation program available to [employer] members, go to www.ZhenXin.Power2Switch (Search: Tobacco Cessation Program). [place] Tobacco Quit Line 2-944-IHEM-NOW ( ) is a toll-free, telephonic service that helps [place] residents quit smoking and using tobacco. It is staffed by experts who tailor a quit plan for you and provide you with advice. [place] Tobacco Quit Line 4-696-DDSP-NOW ( ) is a toll-free, telephonic service that helps [place] residents quit smoking and using tobacco. It is staffed by experts who tailor a quit plan for you and provide you with advice. Two weeks of nicotine replacement therapy may be provided at no charge, if needed. Additional Resources These national organizations also offer free information and resources to help you quit tobacco: [employer] Cancer Society--www.cancer.org/healthy/stayawayfromtobacco Finnish Heart Association--www.heart.org (Search: Quit Smoking) Centers for Disease Control and Prevention--www.cdc.gov/tobacco [place] Lung Association--www.lungusa.org documented in this encounterVermont Psychiatric Care HospitalEucalyptus Systems06-21-2024 History of Present illness Narrative* Guero Tam, DO - 11/24/2023 6:57 PM EDT Patient Name: Myra Pickard Date of : 1965 Date of Service: 11/24/2023 Facility: [facility] Type of Visit: Skilled Visit Subjective Myra Pickard is a 58 y.o. male seen today at longterm facility for therapy visit. Myra is in therapy. He is hoping to be allowed to wt bear on his right foot. His called the trommel tender to ask to be allowed to wt bear or he will be discharged from therapy. He had a bypass on the right lower leg and stent placed by vascular. He had an US and MICHELLE yesterday. He is still havinga lot of pain in the right leg. He feels a hard spot where his incision is and the PassportParking tech said shesaw something there. He is [...] Exam Vitals reviewed. Exam conducted with a laborer salvage present (). Constitutional: General: He is not [...] Status post partial amputation of right foot ([facility]) 2. Other abnormalities of gait and mobility 3. Leg edema 4. Primary hypertension 5. Hypotension due to drugs 6. 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) 7. Diabetic neuropathy His leg edema is [...] BY: Guero Tam DO documented in this encounterGrant Hospitalcentrose Beaumont [id number] Evaluation + Plan note Future Scheduled Tests Radiology* US PVR Lower EXT Complete Bilat 11/20/23 [facility] Aurelio 06-07-2024 Miscellaneous Notes* Telephone Encounter - Ashley Isaiah - 11/10/2023 10:05 AM EDT LMVM for patient's to call back with her Date of so I can update his billing info. documented in this encounterVermont Psychiatric Care HospitalEucalyptus Systems06-07-2024 Telephone encounter Note* Telephone Encounter - Ashley Colon - 11/10/2023 10:05 AM EDT LMVM for patient's to call back with her Date of so I can update his billing info. [facility] History of Present illness Narrative* Guero Tam, - 11/07/2023 11:59 PM EDT Patient Name: Myra Pickard Date of : 1965 Date of Service: 11/07/2023 Facility: [facility] Type of Visit: Skilled Visit Subjective Myra Pickard is a 58 y.o. male seen today at longterm facility for therapy visit. Myra is participating [...] Assessment / Plan 1. Peripheral arterial disease ([facility]) 2. Delayed surgical wound healing of foot amputation stump ([facility]) 3. Other abnormalities of gait and mobility 4. Status post partial amputation of right foot ([facility]) 5. Pressure ulcer of right ankle, stage 3 ([facility]) 6. Type 2 diabetes mellitus with stage 4 chronic kidney disease, without long- term current use of insulin ([facility]) I checked his medications and he is on Trulicity so he doesn't need Januvia. F/U with vascular surgeon. May need further intervention in leg. Continue therapy to reach MMI. All medications reviewed and are medically necessary. ELECTRONICALLY SIGNED BY: Guero Tam DO documented in this encounterMemorial Health System Marietta [facility] Hospital05-31-2024 History of Present illness Narrative* Guero Tam DO - 11/03/2023 11:59 PM EDT Patient Name: Myra Pickard Date of : 1965 Date of Service: 11/03/2023 Facility: [facility] Type of Visit: Skilled Visit Subjective Myra Pickard is a 58 y.o. male seen today at longterm facility for therapy visit. No new problems [...] Exam Vitals reviewed. Exam conducted with a laborer salvage present (). Constitutional: General: He is not [...] surgical wound healing of foot amputation stump ([facility]) Await results of CT angiogram. May need vascular intervention. Continue therapy to reach maximum improvement. Continue other orders as directed. ELECTRONICALLY SIGNED BY: Guero Tam DO documented in this encounterGrant HospitalCost Effective Data [id number] History of Present illness Narrative* Guero Tam DO - 10/25/2023 11:59 PM EDT Patient Name: Myra Pickard Date of : 1965 Date of Service: 10/25/2023 Facility: [facility] Type of Visit: Skilled Visit Subjective Myra Pickard is a 58 y.o. male seen today at longterm facility for therapy visit. Myra was seen [...] Exam Vitals reviewed. Exam conducted with a laborer salvage present (Lef[facility] Rosas [facility]). Constitutional: General: He is not in acute [...] Status post partial amputation of right foot ([facility]) 2. Osteomyelitis of right foot, unspecified type ([facility]) 3. Muscle weakness (generalized) 4. Other abnormalities of gait and mobility 5. Chronic obstructive pulmonary disease, unspecified COPD type ([facility]) 6. Peripheral arterial disease I'll review [...] BY: Guero Tam DO documented in this encounterGrant Hospitalcentrose Beaumont [id number] NoteSinus tachycardia Rightward axis Poor anterior R wave progression QTc 481 [id number] History of Present illness Narrative* Raulito Inman [...] exam, discussion and plan. [facility] Phone: 1(903) 368-313005-21-2024 Instructions* Patient Instructions* Rosemary Benavides LPN - [...] from a cardiac standpoint documented in this encounterBl[facility] Work Phone: [phone] 579-841705-15-2024 Miscellaneous Notes* Telephone Encounter - Cameron Mg LPN - 10/18/2023 9:30 AM EDT Physician requested stat testing, patient unable to complete testing in [facility]> Spoke to Dr. Montes, states patient can have testing and f/u at [facility]. [place] office staff aware. Faxed orders to [facility] at [phone].Patient unable to complete testing at times that were offered, requested a Monday or Monday. documented in this encounterMemorial [facility] Telephone encounter Note* Telephone Encounter - Cameron Mg LPN - 10/18/2023 9:30 AM EDT Physician requested stat testing, patient unable to complete testing in [facility]> Spoke to Dr. Montes, states patient can have testing and f/u at [facility]. [place] office staff aware. Faxed orders to [facility] at [phone].Patient unable to complete testing at times that were offered, requested a Monday or Monday. [facility]05-15-[facility] Evaluation + Plan note* Assessment & Plan Note - Mike Montes MD - 10/18/2023 8:52 AM EDTAssociated Problem(s): Heavy tobacco smoker >10 cigarettes per day Counseled in length willing to quit. [facility]05-15-2024 Miscellaneous Notes* Assessment & Plan Note - Mike Montes MD - 10/18/2023 8:52 AM EDTAssociated Problem(s): Heavy tobacco smoker >10 cigarettes per day Counseled in length willing to quit. 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 ([facility]) PVR and CTA abdomen and plevis with runoff * Addendum Note - Mike Montes MD - 10/18/2023 8:30 AM EDTAddended by: MIKE MONTES on: 10/18/2023 09:00 AM Modules accepted: Orders documented in this encounterMemorial Health System [facility]05-15-2024 Evaluation + Plan note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 ([facility]) PVR and CTA abdomen and plevis with runoff [facility]05-15-[facility] History of Present illness Narrative* Mike [...] to get some of his testing from [facility] in [place]. I looked at a stress test andbasic [...] Mike Montes MD, BG, RPVI, FSVS, FACS [facility] This note was created with the assistance of a speech recognition program. While intending to generate a timely document that accurately reflects the content of the visit, no guarantee can be provided that every grammatical or spelling mistake has been or will be identified or corrected. Thank you for your understanding. documented in this encounterMemorial Health System [facility]05-15-2024 Instructions* Patient Instructions* Mike Montes MD - 10/18/2023 8:30 AM EDT Are You Ready To Kick The Habit? Free Tobacco Cessation Resources [facility] Tobacco Treatment Center Services [facility] Tobacco Treatment [facility] provide all employees with free tobacco cessation services that include: Counseling to understand nicotine addiction Education about medications that can help you successfully quit Assistance with developing a plan to quit Call to set up an individual appointment or find out when group classes will be held: [facility]: [phone] [facility]: [phone] [facility]: [phone] [facility]: [phone] Quit Smoking Action Plan and Resources [facility] offers an eight-week, online smoking cessation plan to all [facility] employees, regardless of whether [employer] is your medical insurance provider. Go to www.[employer].org/employeewellness and click the Health Risk Assessment and Resources link to get started. In the Hxvap7Qskiwf menu, click Action Plans instead of Health Risk Assessment to access the Quit Smoking Action Plan. Additional smoking cessation resources are also available to all [facility] employees on the Gbyfo2Ekdhxn web page at www.[employer]hen[employer]in.com/quitsmoking. [employer] Tobacco Cessation Program If [employer] is your medical insurance provider, there are more free resources available to you, including: No copays or deductibles on local tobacco cessation counseling services to help you quit Prescription assistance for tobacco cessation medications to help you quit For details about the tobacco cessation program available to [employer] members, go to www.huntingtonNervogrid.com (Search: Tobacco Cessation Program). [place] Tobacco Quit Line 0-605-DKRA-NOW ( ) is a toll-free, telephonic service that helps [place] residents quit smoking and using tobacco. It is staffed by experts who tailor a quit plan for you and provide you with advice. [place] Tobacco Quit Line 3-579-WVUO-NOW ( ) is a toll-free, telephonic service that helps [place] residents quit smoking and using tobacco. It is staffed by experts who tailor a quit plan for you and provide you with advice. Two weeks of nicotine replacement therapy may be provided at no charge, if needed. Additional Resources These national organizations also offer free information and resources to help you quit tobacco: [employer]--www.cancer.org/healthy/stayawayfromtobacco [employer]--www.heart.org (Search: Quit Smoking) Centers for Disease Control and Prevention--www.cdc.gov/tobacco [place] [employer]--www.lungusa.org documented in this encounterMemorial Health [facility]05-15-2024 Note* Addendum Note - Mike Montes MD - 10/18/2023 8:30 AM EDTAddended by: MIKE MONTES on: 10/18/2023 09:00 AM Modules accepted: Orders [facility]05-14-[facility] History of Present illness Narrative* Guero Tam DO - 10/17/2023 11:59 PM EDT Patient Name: Myra Pickard Date of : 1965 Date of Service: 10/17/2023 Facility: [facility] Type of Visit: Skilled Visit Subjective Myra Pickard is a 58 y.o. male seen today at longterm facility for therapy visit. Myra has been [...] 97% Physical Exam Exam conducted with a laborer salvage present (Lefty CORREAII). Constitutional: General: He is [...] Status post partial amputation of right foot ([facility]) 2. 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) 3. Type 2 diabetes mellitus with stage 4 chronic kidney disease, without long- term current use of insulin ([facility]) I'm going to add duloxetine 60 mg daily for diabetic neuropathy. Continue therapy. All medications reviewed and are medically necessary. F/U with specialists as directed. ELECTRONICALLY SIGNED BY: Guero Tam DO documented in this encounterMemorial Health System [facility]05-07-2024 History of Present illness Narrative* Guero Tam DO - 10/10/2023 11:33 PM EDT Patient Name: Myra Pickard Date of : 1965 Date of Service: 10/10/2023 Facility: [facility] Type of Visit: Skilled Visit Subjective Myra Pickard is a 58 y.o. male seen today at longterm [facility] for therapy visit. Myra is having diarrhea. He had 5 episodes in last day and had an accident in bed. He doesn't haveany pain, blood or fever. There isn't a foul smell reported like one would expect with C. dif. He is on levofloxacin for osteomyelitis. He has an appointment with the trommel tender on Monday. He said his colonoscopy was [...] 98% Physical Exam Exam conducted with a laborer salvage present (Lefty Rosas MSIII). Constitutional: General: He [...] 2. Other acute osteomyelitis of right foot ([facility]) 3. Status post partial amputation of right foot ([facility]) 4. Chronic obstructive pulmonary disease, unspecified COPD type ([facility]) 5. Abscess of right foot Will try immodium 2mg 2 po Q6 hrs prn for diarrhea. May need to check for C. dif Continue therapy. F/U with trommel tender on Monday. All medications reviewed and are medically necessary. May need to adjust diabetic medications in future. ELECTRONICALLY SIGNED BY: Guero Tam DO documented in this encounterVermont Psychiatric Care HospitalEucalyptus Systems05-03-2024 History of Present illness Narrative* Guero Tam DO - 10/06/2023 4:49 PM EDT Patient Name: Myra Pickard Date of : 1965 Date of Service: 10/06/2023 Facility: [facility] Type of Visit: Admission H&P Subjective Myra Pickard is a 58 y.o. male seen today at longterm facility for admission H&P. Myra presents to [facility] for therapies following hospitalization for sepsis due [...] 96% Physical Exam Exam conducted with a laborer salvage present ( present). Constitutional: General: He is [...] Status post partial amputation of right foot ([facility]) 3. Type 2 diabetes mellitus with stage 4 chronic kidney disease, without long- term current use of insulin ([facility]) 4. Atherosclerosis of cahuilla coronary artery of cahu[place] heart without angina pectoris 5. Bacterial sepsis ([facility]) 6. Other acute osteomyelitis of right foot ([facility]) 7. Chronic obstructive pulmonary disease, unspecified COPD type ([facility]) 8. Cigarette smoker 9. BPH with obstruction/lower urinary tract symptoms 10. Gastroesophageal reflux disease, unspecified whether esophagitis present 11. Restless leg syndrome 12. Hyperlipidemia, unspecified hyperlipidemia type 13. Carpal tunnel syndrome, unspecified laterality 14. Heart failure, unspecified HF chronicity, unspecified heart failure type ([facility]) Admit to [facility] for therapies. Full code. Continue medications from hospital. F/U with specialists as directed. Good rehab potential. Planning on discharge to home when able. ELECTRONICALLY SIGNED BY: Guero Tam DO documented in this encounterVermont Psychiatric Care HospitalEucalyptus Systems02-08-2024 Hospital Discharge instructions Follow Up Care 07/13/2023 12:04:02 With:SOLEDAD HERRERA, Yeyo Blum, URL Address: [address] [place] [phone]- When: Unknown [facility] [employer] 01-22-2024 Evaluation note* Encounter Date Diagnosis Assessment Notes Treatment Notes Treatment Clinical Notes Jun, Hyperlipidemia (ICD-10 - E78.5) [facility] Other 12-29-2023 Hospital Discharge instructions Patient Education [...] urethra. Follow these instructions at home: Take srqu-qrb-hgbbpyn and prescription medicines only as told by [...] provider. Document Revised: 12/08/2021 Document Reviewed: 12/08/2021 [employer] Patient Education 2022 [employer]. Follow Up Care 06/01/2023 14:05:36 With:SOLEDAD HERRERA, Yeyo Blum, URL Address: [address] [place] [phone]- When: Unknown [facility] [place] 12-12-2023 Evaluation note* Encounter Date Diagnosis Assessment Notes Treatment Notes Treatment Clinical Notes May, 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) [facility] Other 11-24-2023 Evaluation note* Encounter Date Diagnosis Assessment Notes Treatment Notes Treatment Clinical Notes Apr, Diabetic nephropathy (ICD-10 - E11.21) [facility] Other 11-07-2023 Evaluation note* Encounter Date Diagnosis Assessment Notes Treatment Notes Treatment Clinical Notes Apr, Left arm pain (ICD-10 - M79.602) [facility] Other 11-02-2023 Evaluation note* Encounter Date Diagnosis [...] and to have his surgery as scheduled. [facility] Other 10-24-2023 Evaluation note* Encounter Date Diagnosis Assessment Notes Treatment Notes Treatment Clinical Notes Mar, 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) Mar, Atherosclerotic hear t disease of cahu[place] coronary artery without angina pectoris (ICD-10 - I25.10) [facility] Other 10-11-2023 Evaluation note* Encounter Date Diagnosis [...] No records available as of [facility] from [facility]. He was found to have developed [...] to continue to montior this at home. [facility] Other 10-09-2023 Note [id number] Hospital Discharge instructions Patient [...] including vitamins, herbs, eye drops, creams, and reik-cci-tkorrtl medicines. Any problems you or family members [...] provider tells you to take them. Taking yxvq-ife-ljlugas medicines, vitamins, herbs, and supplements. Surgery safety [...] provider. Document Revised: 02/15/2022 Document Reviewed: 02/15/2022 [employer] Patient Education 2022 [employer]. [facility]08-28-2023 Hospital Discharge instructions Patient Education [...] including vitamins, herbs, eye drops, creams, and bhyp-sxb-avhmvfi medicines. ?Whether you are or may be [...] provider. Document Revised: 02/02/2022 Document Reviewed: 12/25/2020 [employer] Patient Education 2022 [employer]. 01/30/2023 11:22:30 Cystoscopy Cystoscopy Cystoscopy is a [...] including vitamins, herbs, eye drops, creams, and mnss-jst-hnlwwwh medicines. Any problems you or family members [...] provider tells you to take them. Taking wgjk-zhj-joetpog medicines, vitamins, herbs, and supplements. Tests You [...] Follow these instructions at home: Medicines Take ypcy-rvl-nuxduad and prescription medicines only as told by [...] provider. Document Revised: 02/02/2022 Document Reviewed: 01/01/2021 [employer]iation Patient Education 2022 [employer]. Follow Up Care 11/23/2022 13:02:56 With:SOLEDAD HERRERA, Yeyo Blum, URL Address: [facility] [address] , [place] [address]- [phone] When: Unknown Comments:sched cysto/uros [facility] 08-15-2023 Evaluation note* Encounter Date Diagnosis Assessment Notes Treatment Notes Treatment Clinical Notes Jan, Diabetic nephropathy (ICD-10 - E11.21) [facility] Other 06-29-2023 Evaluation note* Encounter Date Diagnosis [...] reviewed. Nov, Atherosclerotic hear t disease of cahuilla coronary artery without angina pectoris (ICD-10 - I25.10) Encouraged patient to follow with Cardiology as scheduled. [facility] Other 06-21-2023 Hospital Discharge instructions Patient Education [...] provider. Document Revised: 08/11/2021 Document Reviewed: 05/07/2021 [employer] Patient Education 2021 [employer] Follow Up Care 09/14/2022 14:23:26 With:SOLEDAD HERRERA, Yeyo Blum, URL Address: [facility] [address] , [place] [address]- When: Unknown [facility] 05-05-2023 Evaluation note* Encounter Date Diagnosis Assessment Notes Treatment Notes Treatment Clinical Notes October, Erectile dysfunction, unspecified erectile dysfunction type (ICD-10 - N52.9) [facility] Other 04-19-2023 Evaluation note* Encounter Date Diagnosis Assessment Notes Treatment Notes Treatment Clinical Notes Sep, 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) [facility] Other 04-12-2023 Evaluation note* Encounter Date Diagnosis Assessment Notes Treatment Notes Treatment Clinical Notes Sep, Atherosclerotic hear t disease of cahuilla coronary artery without angina pectoris (ICD-10 - I25.10) Sep, 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) [facility] Other 03-20-2023 Evaluation note* Encounter Date Diagnosis Assessment Notes Treatment Notes Treatment Clinical Notes Aug, Diabetic nephropathy (ICD-10 - E11.21) [facility] Other 03-03-2023 Evaluation note* Encounter Date Diagnosis Assessment Notes Treatment Notes Treatment Clinical Notes Aug, Pain in right leg (ICD-10 - M79.604) [facility] Other 03-02-2023 Evaluation note* Encounter Date Diagnosis Assessment Notes Treatment Notes Treatment Clinical Notes Aug, Pain in right leg (ICD-10 - M79.604) [facility] Other 02-20-2023 Evaluation note* Encounter Date Diagnosis Assessment Notes Treatment Notes Treatment Clinical Notes Jul, Intractable episodic headache, unspecified headache type (ICD-10 - R51.9) [facility] Other 02-14-2023 Evaluation note* Encounter Date Diagnosis Assessment Notes Treatment Notes Treatment Clinical Notes Jul, Acute intractable headache, unspecified headache type (ICD-10 - R51.9) [facility] Other 02-08-2023 Evaluation note* Encounter Date Diagnosis Assessment Notes Treatment Notes Treatment Clinical Notes Jul, Headache (ICD-10 - R51.9) [facility] Other 01-30-2023 Evaluation note* Encounter Date Diagnosis [...] medication and we will continue to monitor. [facility] Other 12-21-2022 Evaluation note* Encounter Date Diagnosis Assessment Notes Treatment Notes Treatment Clinical Notes May, Diabetic nephropathy (ICD-10 - E11.21) [facility] Other 11-21-2022 Evaluation note* Encounter Date Diagnosis Assessment Notes Treatment Notes Treatment Clinical Notes Apr, Diabetic nephropathy (ICD-10 - E11.21) [facility] Other 11-15-2022 Evaluation note* Encounter Date Diagnosis Assessment Notes Treatment Notes Treatment Clinical Notes Apr, Pain in right leg (ICD-10 - M79.604) [facility] Other 10-18-2022 Evaluation note* Encounter Date Diagnosis Assessment Notes Treatment Notes Treatment Clinical Notes Mar, Diabetic nephropathy (ICD-10 - E11.21) [facility] Other 09-13-2022 Evaluation note* Encounter Date Diagnosis Assessment Notes Treatment Notes Treatment Clinical Notes Feb, Hypertensive chronic kidney disease with stage 1 through stage 4 chronic kidney disease, or unspecified chronic kidney disease (ICD-10 - I12.9) [facility] Other 09-13-2022 Evaluation note* Encounter Date Diagnosis [...] scheduled. Feb, Atherosclerotic hear t disease of cahuilla coronary artery without angina pectoris (ICD-10 - [...] is to continue to follow with the planing machine operator as scheduled. Feb, Pain in right [...] Noted upon review of blood work results. [facility] Other 08-19-2022 Evaluation note* Encounter Date Diagnosis Assessment Notes Treatment Notes Treatment Clinical Notes Jan, Diabetic nephropathy (ICD-10 - E11.21) [facility] Other 08-17-2022 Evaluation note* Encounter Date Diagnosis Assessment Notes Treatment Notes Treatment Clinical Notes Jan, Diabetic nephropathy (ICD-10 - E11.21) [facility] Other 07-21-2022 Evaluation note* Encounter Date Diagnosis Assessment Notes Treatment Notes Treatment Clinical Notes Dec, Diabetic nephropathy (ICD-10 - E11.21) [facility] Other 06-22-2022 Evaluation note* Encounter Date Diagnosis Assessment Notes Treatment Notes Treatment Clinical Notes Nov, Diabetic nephropathy (ICD-10 - E11.21) [facility] Other 05-23-2022 Evaluation note* Encounter Date Diagnosis Assessment Notes Treatment Notes Treatment Clinical Notes October, Diabetic nephropathy (ICD-10 - E11.21) [place] Other 05-17-2022 Evaluation note* Encounter Date Diagnosis [...] E11.59) October, Atherosclerotic hear t disease of cahuilla coronary artery without angina pectoris (ICD-10 - I25.10) Patient follows with Dr. Inman. For this October, Other He did quit smoking since July 2020 [facility] Other 05-16-2022 Evaluation note* Encounter Date Diagnosis Assessment Notes Treatment Notes Treatment Clinical Notes October, Hypertensive chronic kidney disease with stage 1 through stage 4 chronic kidney disease, or unspecified chronic kidney disease (ICD-10 - I12.9) October, Stage 3 chronic kidney disease, unspecified whether stage 3a or 3b CKD (ICD-10 - N18.30) [facility] Other 05-06-2022 Evaluation note* Encounter Date Diagnosis Assessment Notes Treatment Notes Treatment Clinical Notes October, Pain in right leg (ICD-10 - M79.604) October, Pain in left leg (ICD-10 - M79.605) [facility] Other 04-20-2022 Evaluation note* Encounter Date Diagnosis Assessment Notes Treatment Notes Treatment Clinical Notes Sep, Diabetic nephropathy (ICD-10 - E11.21) [facility] Other 04-19-2022 Evaluation note* Encounter Date Diagnosis Assessment Notes Treatment Notes Treatment Clinical Notes Sep, Anxiety (ICD-10 - F41.9) Sep, Hypertensive chronic kidney disease with stage 1 through stage 4 chronic kidney disease, or unspecified chronic kidney disease (ICD-10 - I12.9) [facility] Other 03-07-2022 Evaluation note* Encounter Date Diagnosis Assessment Notes Treatment Notes Treatment Clinical Notes Aug, Anxiety (ICD-10 - F41.9) [facility] Other 02-22-2022 Evaluation note* Encounter Date Diagnosis [...] 12 pound weight loss from last visit. [facility] Other 01-19-2022 Evaluation note* Encounter Date Diagnosis Assessment Notes Treatment Notes Treatment Clinical Notes Jun, Diabetic nephropathy (ICD-10 - E11.21) [facility] Other Consult note Author Amina Fagan [facility] Note Date/Time August 11, 2024 2:[address] [facility] [address] [place] [address] Nephrology Consult Note Signed Patient: Myra Pickard SR MR#: [id number] : 1965 Acct:[id number] Age/Sex: 59 / M Adm Date: 5 Loc: 3T Room: [address] [place] [address] Type: ADM IN Attending Dr: Kevon Viera [...] reviewed 12 system review is negative today [facility] Medical History Chronic obstructive pulmonary disease, unspecified [...] mass Atrial fibrillation Atherosclerotic heart disease of cahu[place] coronary artery with unspecified angina pectoris Anxiety Hx of exercise stress test Family history of premature CAD Reports mother had quadruple bypass at age of 45 Myocardial infarction mild Fibromyalgia Chronic back pain Sleep apnea Neuropathy Cataract Peripheral artery disease Hyperlipidemia Diabetes Hypertension Surgical History History of below-knee amputation of right lower extremity 02/2024 [facility] [place]. Simon Hernández V[facility] History of [...] [History Confirmed 08/11/24] flash glucose scanning reader ([employer] Jigar 2 [place]) #1 ea 12/28/23 [Rx Confirmed 08/11/24] flash [...] 32 gauge x 5/32 (Comfort EZ Pen [place]) #100 ea 04/15/24 [Rx Confirmed 08/11/24] hydroxyzine [...] 5,000 Unit/Ml Vial) 5,000 unit SUBCUT Q12HR [facility] Stop: 08/11/25 08:59 Last Admin: 08/11/24 09:14 [...] 1,000 mls @ 125 mls/hr IV .Q8H [facility] Stop: 08/11/25 07:14 Last Admin: 08/11/24 11:51 Dose: 125 mls/hr Insulin Aspart (Insulin Aspart 300 Units/3 Ml) 0 units SUBCUT TID.WM.[facility]; Protocol Stop: 08/11/25 07:59 Last Admin: 08/11/24 13:40 Dose: Not Given Ipratropium [place] (Ipratropium [place] 0.5 Mg/2.5 Ml Vial.Neb) 0.5 mg INHALATION QID.RESP [facility] Stop: 08/11/25 07:59 Last Admin: 08/11/24 13:00 Dose: 0.5 mg Isosorbide Mononitrate (Isosorbide Mononitrate 24hr Er 30 Mg Tab.Er.24h) 30 mg PO DAILY [facility] Stop: 08/11/25 08:59 Last Admin: 08/11/24 09:13 Dose: 30 mg Metoprolol Tartrate (Metoprolol Tartrate 100 Mg Tablet) 100 mg PO BID [facility] Stop: 08/11/25 08:59 Last Admin: 08/11/24 09:13 Dose: 100 mg Pantoprazole Sodium (Pantoprazole 40 Mg Tablet.Dr) 40 mg PO BID [facility] Stop: 08/11/25 08:59 Last Admin: 08/11/24 09:13 Dose: 40 mg Pregabalin (Pregabalin 75 Mg Capsule) 75 mg PO TID [facility] Stop: 02/07/25 08:59 Last Admin: 08/11/24 13:40 Dose: 75 mg Ropinirole HCl (Ropinirole 1 Mg Tablet) 1 mg PO TID [facility] Stop: 08/11/25 08:59 Last Admin: 08/11/24 13:40 Dose: 1 mg Tamsulosin HCl (Tamsulosin 0.4 Mg Cap.Er.24h) 0.4 mg PO BID [facility] Stop: 08/11/25 08:59 Last Admin: 08/11/24 09:13 Dose: 0.4 mg Tizanidine HCl (Tizanidine 4 Mg Tablet) 4 mg PO QHS [facility] Stop: 08/11/25 21:59 Exam Physical Exam Vital [...] Appearance Clear Urine pH 5.5 Ur Specific [place] 1.024 Urine Protein Negative Urine Glucose (UA) 500 H Urine Ketones Negative Urine Occult Blood Negative Urine Nitrite Negative Ur Leukocyte Esterase Negative Radiology Impressions Impressions - last 24 hours: Impressions Chest X-Ray 08/11/24 04:22 IMPRESSION: No acute process. Impression dictated by: Sudeep Lind M.D.08/11/2024 10:06 AM Dictation Location: [place] [address] 08/11/24 04:22 IMPRESSION: No acute [...] Sudeep Lind M.D.08/11/2024 10:06 AM Dictation Location: [place] [address] Any impression(s) listed above is documentation that [...] concern Documented By: Amina Fagan MD 08/11/24 1409 Signed By: <Electronically signed by Amina Fagan MD> 08/11/24 1415 [facility] Work Phone: [place] [address] Cardiology Consult Note Signed Patient: Myra Pickard SR MR#: [id number] : 1965 Acct:[id number] Age/Sex: 59 / M Adm Date: 5 Loc: Room: [address] [place] [address] Type: ADM INOo Attending Dr: Abdullahi Canchola DO Copies to: DO Pascale Guzman MD, [facility] Abdullahi Canchola DO~ Cardiology HPI History [...] post right below-knee amputation February 2024 in [place]. He has COPD followed by pulmonary medicine in [place]. His EKG showed no acute changes his [...] he gets seen first by his primary planing machine operator in the office, I emphasized to the [...] symptoms. Other review of system was unremarkable [facility] Medical History Hypokalemia Hypocalcemia Hypomagnesemia Vitamin B12 [...] mass Atrial fibrillation Atherosclerotic heart disease of [place] coronary artery with unspecified angina pectoris Anxiety Hx of exercise stress test Family history of premature CAD Reports mother had quadruple bypass at age of 45 Myocardial infarction mild Fibromyalgia Chronic back pain Sleep apnea Neuropathy Cataract Peripheral artery disease Hyperlipidemia Diabetes Hypertension Surgical History History of below-knee amputation of right lower extremity 02/2024 [facility] [place] Simon Hernández Vascular History of [...] 07/12/23[History Confirmed 10/10/24] flash glucose scanning reader (SmartestingStyle Jigar 2 [place]) #1 ea 12/28/23 [Rx Confirmed 10/10/24] flash [...] 32 gauge x /32 (Comfort EZ Pen [place]) #100 ea 04/15/24 [Rx Confirmed 10/10/24] hydroxyzine [...] Lymph # (Auto) 2.0 2.0 (1.00-4.8) x10E3/uL [place] # (Auto) 0.8 0.9 H (0.0-0.8) x10E3/uL [...] RCA, nuclear stress test February 2024 in [place] was normal Plan: Continue aggressive risk factors modifications, tobacco cessation, dual antiplatelet therapy, high intensity statin Code(s): I25.10 - Atherosclerotic heart disease of [place] coronary artery without angina pectoris Documented By: Pascale Arnold MD, [facility] 5 0947 Signed By: 10/11/24 0956 [facility] Jo[facility] Powell [facility] March 06, 2024 4:23pm Note Date/Time March 06, 2024 3: 58pm [facility] [address] [place] [address] Discharge Summary Signed Patient: MatteoMyra María CHRISTIAN MR#: [id number] : 1965 Acct:[id number] Age/Sex: 58 / M Adm Date: 4 Loc: 3T Room: [address] [place] [address]: João Powell MD Copies to: [...] neuropathy status post right BKA recently at [facility]. He presents today with episodes of lightheadedness [...] Instructions: As directed (DME) FreeStyle Jigar 2 [place] Misc See Rx Instructions .ROUTE Qty: 1 [...] % (Auto) N/A, Lymph % (Auto) N/A, [place] % (Auto) N/A, Eos % (Auto) N/A, Baso % (Auto) N/A, Nucleat RBC Rel Count N/A, Neut # (Auto) N/A, Lymph # (Auto) N/A, [place] # (Auto) N/A, Eos # (Auto) N/A, [...] 106 Documented By: João Powell MD 03/06/24 5893 Signed By: <Electronically signed by João Powell MD> 03/06/24 1623 [facility] Work Phone: Discharge summary Author Kevon Viera [facility] Note Date/Time August 13, 2024 2:[address] [facility] [address] [place], [place] [id number] Discharge Summary Signed Patient: Myra Pickard SR MR#: [id number] : 1965 Acct:[id number] Age/Sex: 59 / M Adm Date: 5 Loc: 3T Room: [address] [place] [address]: Kevon Viera MD Copies to: [...] (DME) pen needle, diabetic [Comfort EZ Pen [place]] 32 gauge x 5/32 needle See Rx [...] Instructions: As directed (DME) FreeStyle Jigar 2 [place] Misc See Rx Instructions .Route Qty: 1 [...] <Electronically signed by Kevon Viera MD> 08/13/[address] [place] [address] Work Phone: [place] [address] Discharge Summary Signed Patient: Myra Pickard SR MR#: [id number] : 1965 Acct:[id number] Age/Sex: 59 / M Adm Date: 5 Loc: Room: [address] [place] [address]: Abdullahi Canchola DO Copies to: DO Abdullahi Guzman, ~ Providers Date of Discharge: 10/11/24 Discharging Provider: Abdullahi Canchola Primary Care Provider: Teresa Lynch Consults: 10/10/24 18:25 Consult to Cardiology Routine Comment: Consulting Provider: [facility] [place] [facility], [facility] Reason For Exam: chest pain Has Provider [...] (DME) pen needle, diabetic [Comfort EZ Pen [place]] 32 gauge x 5/32 needle See Rx [...] Instructions: As directed (DME) FreeStyle Jigar 2 [place] Misc See Rx Instructions .Route Qty: 1 0RF Rx Instructions: As directed Discontinued valsartan-hydrochlorothiazide [Diovan HCT] 160-12.5 mg tablet 1 tab PO DAILY Follow Up: [facility] [Outside] (Once Insurance approves outpatient Stress Test we will call you with date/time/instructions.) Bernard De La Cruz MD [Active Staff] - (we will call with appointment when Stress test is complete) Teresa Lycnh DO [Primary Care Provider] - 11/05/24 1:15 [...] % (Auto) 58.3, Lymph % (Auto) 25.5, [place] % (Auto) 10.9, Eos % (Auto) 4.0, Baso % (Auto) 1.3, Nucleat RBC Rel Count 0.1, Neut # (Auto) 4.6, Lymph # (Auto) 2.0, [place] # (Auto) 0.9 H, Eos # (Auto) [...] Neut % (Auto) 61.8, Lymph % (Auto)23.4, [place] % (Auto) 9.5, Eos % (Auto) 4.0, Baso % (Auto) 1.3, Nucleat RBC Rel Count 0.2, Neut # (Auto) 5.3, Lymph # (Auto) 2.0, [place] # (Auto) 0.8, Eos # (Auto) 0.3, [...] 10/11/24 13 40 Signed By: 10/11/24 1358 [facility] Author Abdullahi Canchola [facility] Note Date/Time October 11, 2024 1:58pm [facility] [address] [place] [address] Discharge Summary Signed Patient: Myra Pickard SR MR#: [id number] : 1965 Acct:[id number] Age/Sex: 59 / M Adm Date: 5 Loc: Room: [address] [place] [address]: Abdullahi Canchola DO Copies to: DO Abdullahi Guzman DO~ Providers Date of Discharge: 10/11/24 Discharging Provider: Abdullahi Canchola Primary Care Provider: Teresa Lynch Consults: 10/10/24 18:25 Consult to Cardiology Routine Comment: Consulting Provider: [facility] [place] [facility], [facility] Reason For Exam: chest pain Has Provider [...] (DME) pen needle, diabetic [Comfort EZ Pen [place]] 32 gauge x / needle See Rx [...] Instructions: As directed (DME) FreeStyle Jigar 2 [place] Misc See Rx Instructions .Route Qty: 1 0RF Rx Instructions: As directed Discontinued valsartan-hydrochlorothiazide [Diovan HCT] 160-12.5 mg tablet 1 tab PO DAILY Follow Up: [facility] [Outside] (Once Insurance approves outpatient [...] % (Auto) 58.3, Lymph % (Auto) 25.5, [place] % (Auto) 10.9, Eos % (Auto) 4.0, Baso % (Auto) 1.3, Nucleat RBC Rel Count 0.1, Neut # (Auto) 4.6, Lymph # (Auto) 2.0, [place] # (Auto) 0.9 H, Eos # (Auto) [...] % (Auto) 61.8, Lymph % (Auto) 23.4, [place] % (Auto) 9.5, Eos % (Auto) 4.0, Baso % (Auto) 1.3, Nucleat RBC Rel Count 0.2, Neut # (Auto) 5.3, Lymph # (Auto) 2.0, [place] # (Auto) 0.8, Eos # (Auto) 0.3, [...] signed by Abdullahi Canchola, DO> 10/11/24 1358 [facility] Work Phone: Evaluation + Plan note Future Appointments Appointment Date:12/21/2022 11:00:00 AM Scheduled Provider: Location:[facility] Appointment Type:URO Nurse Visit Appointment Date:01/30/2023 10:30:00 AM Scheduled Provider:Yeyo ROWE MD Location:[facility] Appointment Type:URO Office Visit [facility] Evaluation + Plan note Future Appointments Appointment Date:01/30/2023 10:15:00 AM Scheduled Provider:Yeyo ROWE MD Location:[facility] Appointment Type:URO Office Visit [facility] Evaluation + Plan note Future Appointments Appointment Date:02/01/2023 10:00:00 AM Scheduled Provider: Location:[facility] Appointment Type:Urology CALL PAT FT Appointment Date:02/08/2023 09:00:00 AM Scheduled Provider: Location:[facility] Appointment Type:Urology FT Appointment Date:02/14/2023 09:15:00 AM Scheduled Provider: Location:[facility] Appointment Type:Urology FT [facility] evaluation + Plan note Future Appointments Appointment Date:02/14/2023 09:15:00 AM Scheduled Provider: Location:[facility] App[facility] Future App[facility]ments Appointment Date:03/20/2023 08:45:00 AM Scheduled Provider: Location:[facility] Appointment Type:URO Nurse Visit Appointment Date:04/05/2023 08:00:00 AM Scheduled Provider:Yeyo ROWE MD Location:[facility] Appointment Type:URO [facility] Future Appointments Appointment Date:05/03/2023 08:45:00 AM Scheduled Provider:Yeyo ROWE MD Location:[facility] Appointment Type:URO Office Visit [facility] Evaluation + Plan note Future Appointments Appointment Date:07/03/2023 10:15:00 AM Scheduled Provider:Yeyo ROWE MD Location:[facility] Appointment Type:URO Office Visit [facility] evaluation + Plan note Future Appointments Appointment Date:10/23/2023 09:30:00 AM Scheduled Provider:Mike Montes MD Location[facility] Appointment Type:[facility] (FT) [facility] noteNo InformationNort Zinc Ahead Other Evaluation noteNo assessment information available [facility] Work Phone: evaluation note* Diagnosis History of PTCA Postsurgical percutaneous transluminal coronary angioplasty status Hyperlipidemia, unspecified hyperlipidemia type Encounter for pre-operative cardiovascular clearance Former smoker Personal history of tobacco use, presenting hazards to health documented in this encounter [facility] Work Phone: Evaluation note* Diagnosis Onset Date Resolution Status Anemia acute Atrial fibrillation acute Chronic back pain acute Cigarette nicotine dependenc e with nicotine-induced disorder acute Diabetic nephropathy associa jorge with secondary diabetes mellitus acute GERD (gastroesophageal reflux disease) acute Hyperlipidemia acute Restless legs syndrome acute Syncope acute CAD (coronary artery disease) chronic Chronic kidney disease chron ic Diabetes chronic Hypertension chronic [facility] Work Phone: Evaluation note* Diagnosis Onset [...] chronic Altered mental status acute Hypothermia acute [facility] Work Phone: Evaluation note* Diagnosis Onset [...] acute Restless legs syndrome acute Syncope acute [facility] Work Phone: Evaluation note* Diagnosis Onset [...] imaging acute GERD (gastroesophageal reflux disease) acute [facility] Work Phone: Evaluation note* Diagnosis Onset Date [...] GERD (gastroesophageal reflux disease) acute Diabetes acute [facility] Work Phone: Evaluation note* Diagnosis Shortness of breath documented in this encounter [facility] Work Phone: Evaluation note* Diagnosis Abscess of right foot- Primary Cellulitis and abscess of foot, except toes Status post partial amputation of right foot ([facility]) Type 2 diabetes mellitus with stage 4 chronic kidney disease, without long-term current use of insulin ([facility]) Atherosclerosis of [place]ahu[place] coronary artery of [place] heart without angina pectoris Bacterial sepsis ([facility]) Bacteremia Other acute osteomyelitis of right foot ([facility]) Chronic obstructive pulmonary disease, unspecified COPD type ([facility]) Cigarette smoker Tobacco use disorder BPH with obstruction/lower urinary tract symptoms Gastroesophageal reflux disease, unspecified whether esophagitis present Restless leg syndrome Restless legs syndrome (RLS) Hyperlipidemia, unspecified hyperlipidemia type Carpal tunnel syndrome, unspecified laterality Heart failure, unspecified HF chronicity, unspecified heart failure type ([facility]) [facility] Diagnosis Diarrhea, unspecified type- Primary Other acute osteomyelitis of right foot ([facility]) Status post partial amputation of right foot ([facility]) Chronic obstructive pulmonary disease, unspecified COPD type ([facility]) Abscess of right foot Cellulitis and abscess of foot, except toes Type 2 diabetes mellitus with stage 4 chronic kidney disease, without long-term current use of insulin ([facility]) [facility] Diagnosis Status post partial amputation of right foot ([facility])- Primary Pressure ulcer of right ankle, stage 3 ([facility]) Other abnormalities of gait and mobility Delayed surgical wound healing of foot amputation stump ([facility]) documented [facility]* Diagnosis 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 ([facility])- Primary Poor circulation Unspecified circulatory system disorder Heavy tobacco smoker >10 cigarettes per day documented in this [facility]* Diagnosis Status post partial amputation of right foot ([facility])- Primary 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 ([facility]) Type 2 diabetes mellitus with stage 4 chronic kidney disease, without long-term current use of insulin ([facility]) documented [facility] Diagnosis Peripheral arterial disease ([facility])- Primary Unspecified peripheral vascular disease Delayed surgical wound healing of foot amputation stump ([facility]) Other abnormalities of gait and mobility Status post partial amputation of right foot ([facility]) Pressure ulcer of right ankle, stage 3 ([facility]) Type 2 diabetes mellitus with stage 4 chronic kidney disease, without long-term current use of insulin ([facility]) documented in this encounter [facility] Diagnosis 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 Primary Status post partial amputation of right foot ([facility])- Primary Osteomyelitis of right foot, unspecified type ([facility]) Muscle weakness (generalized) Other abnormalities of gait and mobility Chronic obstructive pulmonary disease, unspecified COPD type ([facility]) Peripheral arterial disease (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) documented in this encounter [facility]* Diagnosis Status post partial amputation of right foot (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) Diabetic polyneuropathy associated with type 2 diabetes mellitus ([facility]) [facility] Diagnosis 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 (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 Primary 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 ([facility]) Delayed surgical wound healing of foot amputation stump (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)- Primary Cigarette smoker Tobacco use disorder documented in this encounter [facility]* Diagnosis Diabetic polyneuropathy associated with type 2 diabetes mellitus ([facility])- Primary Disorientation Other general symptoms Other abnormalities of gait and mobility Status post partial amputation of right foot ([facility]) Atherosclerosis of [place] coronary artery of [place] heart without angina pectoris Atrial fibrillation ([facility]) Primary hypertension Unspecified essential hypertension documented in this encounter [facility]* Diagnosis Diabetic polyneuropathy associated with type 2 diabetes mellitus (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)- Primary Cigarette smoker Tobacco use disorder History of right below knee amputation ([facility])- Primary [facility]* Diagnosis Encounter for orthopedic aftercare following surgical amputation- Primary Cigarette smoker Tobacco use disorder Diabetic polyneuropathy associated with type 2 diabetes mellitus ([facility]) Other abnormalities of gait and mobility Muscle spasm Spasm of muscle documented in this encounter [facility]* Diagnosis PAD (peripheral artery disease) ([facility] Primary Unspecified peripheral vascular disease documented in [facility]* Diagnosis Encounter for orthopedic aftercare following surgical amputation- Primary Other abnormalities of gait and mobility BPH with obstruction/lower urinary tract symptoms Diabetic polyneuropathy associated with type 2 diabetes mellitus ([facility]) Atherosclerosis of [place] coronary artery of [place] heart without angina pectoris Heart failure, unspecified HF chronicity, unspecified heart failure type ([facility]) Primary hypertension Unspecified essential hypertension Peripheral arterial disease ([facility]) Unspecified peripheral vascular disease Chronic obstructive pulmonary disease, unspecified COPD type ([facility]) Gastroesophageal reflux disease, unspecified whether esophagitis present Muscle weakness (generalized) documented in this encounter [facility]* Diagnosis Onset Date Resolution Status Admit Date Acute kidney injury superimp osed on CKD acute August 11, 2024 5:39am Diabetes acute August 11 5:39am Hypocalcemia acute August 11 025 5:39am Left sided numbness acute August 11, 2024 5:39am Paresthesias acute August 11 5:39am Hypertension chronic August 11 5:39am [facility] Work Phone: History and physical note Author Mike Burleson [facility] Note Date/Time April 23, 2024 1:50pm [facility] [address] [place] [address] Gastroenterology H&P Signed Patient: Myra Pickard SR MR#: [id number] : 1965 Acct:[id number] Age/Sex: 58 / M Adm Date: 4 Loc: Room: Type: [facility] Attending Dr: Mike Burleson MD Copies to: [...] is an appropriate candidate for the procedure. Mkie Burleson MD Documented By: Mike Burleson MD 04/23/24 1348 Signed By: <Electronically signed by Mike Burleson MD> 04/23/24 1357 [facility] Work Phone: History and physical note Author Marge Andino [facility] Note Date/Time August 11, 2024 7:[address] [facility] [address] [place] [address] Hospitalist H&P Signed Patient: Myra Pickard SR MR#: [id number] : 1965 Acct:[id number] Age/Sex: 59 / M Adm Date: 5 Loc: 3T Room: [address] [place] [address] Type: ADM IN Attending Dr: Kevon Viera [...] neck without acute findings -official report pending [facility] Medical History Chronic obstructive pulmonary disease, unspecified [...] mass Atrial fibrillation Atherosclerotic heart disease of cahuilla coronary artery with unspecified angina pectoris Anxiety Hx of exercise stress test Family history of premature CAD Reports mother had quadruple bypass at age of 45 Myocardial infarction mild Fibromyalgia Chronic back pain Sleep apnea Neuropathy Cataract Peripheral artery disease Hyperlipidemia Diabetes Hypertension Surgical History History of below-knee amputation of right lower extremity 02/2024 [facility] [place] Simon Hernández Vascular History of [...] flash glucose scanning reader (FreeStyle Jigar 2 [place]) #1 ea 12/28/23 [Rx Confirmed 08/11/24] flash [...] 32 gauge x 5/32 (Comfort EZ Pen [place]) #100 ea 04/15/24 [Rx Confirmed 08/11/24] hydroxyzine [...] 04:15 Lymph % (Auto) N/A 08/11/24 04:15 Semin[place] % (Auto) N/A 08/11/24 04:15 Eos % (Auto) N/A 08/11/24 04:15 Baso % (Auto) N/A 08/11/24 04:15 Nucleat RBC Rel Count N/A 08/11/24 04:15 Neut # (Auto) N/A 08/11/24 04:15 Lymph # (Auto) N/A 08/11/24 04:15 [place]in[place] # (Auto) N/A 08/11/24 04:15 Eos # [...] signed by Marge Andino MD> 08/11/24 0724 [facility] Work Phone: [place] [address] Hospitalist H&P Signed Patient: Myra Pickard MR#: [id number] : 1965 Acct:[id number] Age/Sex: 59 / M Adm Date: 5 Loc: Room: [address] [place] [address] Type: ADM INOo Attending Dr: Abdullahi Canchola [...] reports multivessel PCI'saround the time of at [facility]. He hasstent information cards that are [...] Continue to trend cardiac markers, routine echocardiogram. [facility] Medical History Hypokalemia Hypocalcemia Hypomagnesemia Vitamin B12 [...] mass Atrial fibrillation Atherosclerotic heart disease of cahu[place] coronary artery with unspecified angina pectoris Anxiety Hx of exercise stress test Family history of premature CAD Reports mother had quadruple bypass at age of 45 Myocardial infarction mild Fibromyalgia Chronic back pain Sleep apnea Neuropathy Cataract Peripheral artery disease Hyperlipidemia Diabetes Hypertension Surgical History History of below-knee amputation of right lower extremity 02/2024 [facility] [place]. Simon Hernández Vascular History of [...] 07/12/23[History Confirmed 10/10/24] flash glucose scanning reader ([employer] Jigar 2 [place]) #1 ea 12/28/23 [Rx Confirmed 10/10/24] flash [...] diabetic 32 gauge x (Comfort EZ Pen [place]) #100 ea 04/15/24 [Rx Confirmed 10/10/24] hydroxyzine [...] % (Auto) 23.4 % (.) 10/10/24 15:42 Seminole % (Auto) 9.5 % (.) 10/10/24 15:42 Eos % (Auto) 4.0 % (.) 10/10/24 15:42 Baso % (Auto) 1.3 % (.) 10/10/24 15:42 Nucleat RBC Rel Count 0.2 /100 WBC (0-0.5) 10/10/24 15:42 Neut # (Auto) 5.3 x10E3/uL (1.8-7.7) 10/10/24 15:42 Lymph # (Auto) 2.0 x10E3/uL (1.00-4.8) 10/10/24 15:42 [place]in[place] # (Auto) 0.8 x10E3/uL (0.0-0.8) 10/10/24 15:42 [...] 10/10/24 18 33 Signed By: 10/11/24 1358 [facility] Abdullahi Canchola [facility] Note Date/Time October 11, 2024 1:58pm [facility] [address] [place] [address] Hospitalist H&P Signed Patient: Myra Pickard SR MR#: [id number] : 1965 Acct:[id number] Age/Sex: 59 / M Adm Date: 5 Loc: Room: [address] [place] [address] Type: ADM INOo Attending Dr: Abdullahi Canchola [...] multivessel PCI's around the time of at [facility]. He hasstent information cards that are [...] Continue to trend cardiac markers, routine echocardiogram. [facility] Medical History Hypokalemia Hypocalcemia Hypomagnesemia Vitamin B12 [...] mass Atrial fibrillation Atherosclerotic heart disease of cahu[place] coronary artery with unspecified angina pectoris Anxiety Hx of exercise stress test Family history of premature CAD Reports mother had quadruple bypass at age of 45 Myocardial infarction mild Fibromyalgia Chronic back pain Sleep apnea Neuropathy Cataract Peripheral artery disease Hyperlipidemia Diabetes Hypertension Surgical History History of below-knee amputation of right lower extremity 02/2024 [facility] [place]. Simon Hernández Vascular History of [...] [History Confirmed 10/10/24] flash glucose scanning reader (Smart[employer]Style Jigar 2 [place]) #1 ea 12/28/23 [Rx Confirmed 10/10/24] flash [...] 32 gauge x 5/32 (Comfort EZ Pen [place]) #100 ea 04/15/24 [Rx Confirmed 10/10/24] hydroxyzine [...] % (Auto) 23.4 % (.) 10/10/24 15:42 [place] % (Auto) 9.5 % (.) 10/10/24 15:42 Eos % (Auto) 4.0 % (.) 10/10/24 15:42 Baso % (Auto) 1.3 % (.) 10/10/24 15:42 Nucleat RBC Rel Count 0.2 /100 WBC (0-0.5) 10/10/24 15:42 Neut # (Auto) 5.3 x10E3/uL (1.8-7.7) 10/10/24 15:42 Lymph # (Auto) 2.0 x10E3/uL (1.00-4.8) 10/10/24 15:42 [place] # (Auto) 0.8 x10E3/uL (0.0-0.8) 10/10/24 15:42 [...] 33 Signed By: <Electronically signed by Abdullahi Canchola DO> 10/11/24 1351 [facility] Work Phone: History general Narrative - [...] hydrocele repair 08/2016 Surgical History cardiac cath [facility] 04/02/18 Surgical History Lt LE iliac DSA, angioplasty & stenting 09/27/2018 Surgical History Left Angiogram with one stent - Dr. Boss 07/2020 Hospitalization History Deep Depression, Anxiety; [facility] 11-11-10 Hospitalization History [facility] hypoxemia and hyper capnic respirtory failure 11/11/16 Hospitalization History chest pain [facility] 04/02/18 [employer] Other History of Present illness NarrativeReturns in [...] impact on blood pressure and [facility] Work Phone: History of Present [...] medication regimen. He denies medication side effects. [facility] 600 DO Work Phone: History of [...] medication regimen. He denies medication side effects. [facility] 250 DO Work Phone: Hospital course Narrative No data available for this section [facility] Discharge instructions No data available for this section [facility] Discharge instructionsAmbulatory Orders* Referral to Pain Management Time Frame: 08/30/24, Location: [facility] Work Phone: InstructionsNot on filedocumented in this [...] available for this section [facility] Progress note Author Kevon Viera [facility] Note Date/Time August 11, 2024 1:[address] [facility] [address] [place] [address] Progress Note Signed Patient: Myra Pickard SR MR#: [id number] : 1965 Acct:[id number] Age/Sex: 59 / M Adm Date: 5 Loc: 3T Room: [address] [place] [address] Type: ADM IN Attending Dr: Kevon Viera [...] signed by Kevon Viera MD> 08/11/24 1321 [facility] Work Phone: Progress note Author Maurice Francis [facility] Note Date/Time August 12, 2024 11: 47am [facility] [address] [place] [address] Nephrology Progress Note Signed Patient: Myra Pickard SR MR#: [id number] : 1965 Acct:[id number] Age/Sex: 59 / M Adm Date: 5 Loc: 3T Room: [address] [place] [address] Type: ADM IN Attending Dr: Kevon Viera [...] Skin: No rashes , warm to touch GEAR FINISHER: Awake,Alert, 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 Musculoskeletal: No [...] 5,000 Unit/Ml Vial) 5,000 unit SUBCUT Q12HR [facility] Stop: 08/11/25 08:59 Last Admin: 08/12/24 08:27 [...] Chloride 270 mls @ 135 mls/hr IVQAM [facility] Stop: 08/14/24 10:59 Last Admin: 08/12/24 09:19 Dose: 135 mls/hr Insulin Aspart (Insulin Aspart 300 Units/3 Ml) 0 units SUBCUT TID.WM.[facility]; Protocol Stop: 08/11/25 07:59 Last Admin: 08/12/24 08:27 Dose: Not Given Ipratropium Troy (Ipratropium [place] 0.5 Mg/2.5 Ml Vial.Neb) 0.5 mg INHALATION QID.RESP [facility] Stop: 08/11/25 07:59 Last Admin: 08/12/24 08:51 Dose: 0.5 mg Isosorbide Mononitrate (Isosorbide Mononitrate 24hr Er 30 Mg Tab.Er.24h) 30 mg PO DAILY [facility] Stop: 08/11/25 08:59 Last Admin: 08/12/24 08:27 Dose: 30 mg Metoprolol Tartrate (Metoprolol Tartrate 100 Mg Tablet) 100 mg PO BID [facility] Stop: 08/11/25 08:59 Last Admin: 08/12/24 08:27 Dose: 100 mg Pantoprazole Sodium (Pantoprazole 40 Mg Tablet.Dr) 40 mg PO BID [facility] Stop: 08/11/25 08:59 Last Admin: 08/12/24 08:27 [...] signed by Maurice Francis MD> 08/12/24 1147 [facility] Work Phone: Progress note Author Kevon Viera [facility] Note Date/Time August 12, 2024 3:[address] [facility] [address] [place] [address] Hospitalist Progress Note Signed Patient: Myra Pickard SR MR#: [id number] : 1965 Acct:[id number] Age/Sex: 59 / M Adm Date: 5 Loc: 3T Room: [address] [place] [address] Type: ADM IN Attending Dr: Kevon Viera [...] 1 units TID.WM.HS SATISH Administration Protocol Ipratropium Troy 0.5 mg 08/11/24 08:00 08/12/24 12:31 Ipratropium [place] 0.5 Mg/2.5 Ml Vial.Neb INHALATION 08/11/25 07:59 [...] <Electronically signed by Kevon Viera MD> 08/12/24 0229 [facility] Work Phone: Progress note Author Maurice Francis [facility] Note Date/Time August 13, 2024 11: 06am [facility] [address] [place] [address] Nephrology Progress Note Signed Patient: Myra Pickard MR#: [id number] : 1965 Acct:[id number] Age/Sex: 59 / M Adm Date: 5 Loc: Room: [address] [place] [address] Type: ADM IN Attending Dr: Kevon Viera [...] Skin: No rashes , warm to touch GEAR FINISHER: Awake,Alert, 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 Musculoskeletal: No [...] Chloride 270 mls @ 135 mls/hr IVQAM [facility] Stop: 08/14/24 10:59 Last Admin: 08/12/24 09:19 Dose: 135 mls/hr Insulin Aspart (Insulin Aspart 300 Units/3 Ml) 0 units SUBCUT TID.WM.HS [facility]; Protocol Stop: 08/11/25 07:59 Last Admin: 08/13/24 08:25 Dose: 1 units Ipratropium [place] (Ipratropium [place] 0.5 Mg/2.5 Ml Vial.Neb) 0.5 mg INHALATION QID.RESP [facility] Stop: 08/11/25 07:59 Last Admin: 08/13/24 07:54 Dose: 0.5 mg Isosorbide Mononitrate (Isosorbide Mononitrate 24hr Er 30 Mg Tab.Er.24h) 30 mg PO DAILY [facility] Stop: 08/11/25 08:59 Last Admin: 08/13/24 08:25 Dose: 30 mg Metoprolol Tartrate (Metoprolol Tartrate 100 Mg Tablet) 100 mg PO BID [facility] Stop: 08/11/25 08:59 Last Admin: 08/13/24 08:25 Dose: 100 mg Pantoprazole Sodium (Pantoprazole 40 Mg Tablet.Dr) 40 mg PO BID [facility] Stop: 08/11/25 08:59 Last Admin: 08/13/24 08:25 Dose: 40 mg Pregabalin (Pregabalin 75 Mg Capsule) 75 mg PO TID [facility] Stop: 02/07/25 08:59 Last Admin: 08/13/24 08:25 Dose: 75 mg Ropinirole HCl (Ropinirole 1 Mg Tablet) 1 mg PO TID [facility] Stop: 08/11/25 08:59 Last Admin: 08/13/24 08:25 Dose: 1 mg Tamsulosin HCl (Tamsulosin 0.4 Mg Cap.Er.24h) 0.4 mg PO BID [facility] Stop: 08/11/25 08:59 Last Admin: 08/13/24 08:25 Dose: 0.4 mg Tizanidine HCl (Tizanidine 4 Mg Tablet) 4 mg PO QHS [facility] Stop: 08/11/25 21:59 Last Admin: 08/12/24 21:48 [...] weeks Documented By: Maurice Francis MD 08/13/24 6641 Signed By: <Electronically signed by Maurice Francis MD> 08/13/24 1103 [facility] Work Phone: Chief Complaint MYRA PICKARD [...] lwr bilat mult lev/PVR Mike Montes MD [address], [address] [address] Referral ID Status Reason Start Date Expiration Date V isits Requested Visits Authorized [id number] Pending Review 10/18/2023 10/17/2024 1 1 Specialty Diagnoses / Procedures Referred By Brett mandujano Referred To Contact Radiology Diagnoses 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) Procedures CT angiogram abdominal aorta with runoff Mike Montes MD [address], [address] [address] Referral ID Status Reason Start Date Expiration Date V isits Requested Visits Authorized [id number] Pending Review 10/18/2023 10/17/2024 1 1 Referral ID Status Reason Start Date Expiration Date V isits Requested Visits Authorized [id number] Pending Review 10/18/2023 10/17/2024 1 1 Referral ID Status Reason Start Date Expiration Date V isits Requested Visits Authorized [id number] Pending Review 10/18/2023 10/17/2024 1 1 Specialty Diagnoses / Procedures Referred By Contac t Referred To Contact Cardiology Diagnoses Shortness of breath Procedures Transthoracic Echo Complete RI ECHO TTHRC R-T 2D W/WOM-MODE COMPL SPEC&COLR D Bernard De La Cruz MD [address] [place] [address], [address] [address] Referral ID Status Reason Start Date Expiration Date Visits Requested Visits Authorized [id number] Authorized Perform Procedure 01/01/2024 12/31/2024 1 1 Specialty Diagnoses / Procedures Referred By Contac t Referred To Contact Diagnoses Encounter for pre-operative cardiovascular clearance Procedures ECG 12 Lead Raulito Inman MD [address] [place] [address], [address] [address] Referral ID Status Reason Start Date Expiration Date V isits Requested Visits Authorized [id number] Authorized 10/24/2023 10/23/2024 1 1 Specialty Diagnoses / Procedures Referred By Contac t Referred To Contact Cardiology Diagnoses History of PTCA Procedures Follow Up In Cardiology Raulito Inman MD [address] [place] [address], [address] [address] Referral ID Status Reason Start Date Expiration Date V isits Requested Visits Authorized [id number] Authorized 10/24/2023 10/23/2024 1 1 Reason CANCELLED consult and treat; previous patient of Dr. Sharpe last seen in 2020; persisting intractable headaches Diagnosis 1 Acute intractable he adache, unspecified headache type (R51.9) Referral Organization [facility] Referring Provider First Name Teresa Referring Provider Last Name Rory Referring Provider Specialty Family Prac dale Referred Organization [facility] Referred Provider Lyssa Sharpe Referred Address [address],[place], [place],[address] Referred Provider Specialty Neurology Referral Priority Routine General Notes [facility] 023 10:19:08 AM >Received today. [facility] request us to fill out their form and attach to Referral and send it to them and they will call patient to schedule. 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 (E11.59) Referral Organization [facility] Referring Provider First Name Teresa Referring Provider Last Name Rory Referring Provider Specialty Family Prac dale Referred Organization [facility] Referred Provider Doris Branes Referred Address [address],[facility],[place], [place],[address] Referred Provider Specialty Nurse Jono calderon Referral Priority Routine Referral Appointment Date 2022-03-31 General Notes [facility] 022 02:28:10 PM >Received today and sent P2P [facility] 02/16/2022 07:50:21 AM >Patient has [...] 8:3 7am Non compliance w medication regimen [facility] 2024 8:37am CAD (coronary artery [...] Procedures ECG 12 Lead Raulito Inman MD [address] [facility], [address] [address] Referral ID Status Reason Start Date Expiration Date V isits Requested Visits Authorized [id number] Authorized 10/24/2023 10/23/2024 1 1 Specialty Diagnoses / Procedures Referred By Contac t Referred To Contact Cardiology Diagnoses Shortness of breath Procedures Transthoracic Echo Complete RI ECHO TTHRC R-T 2D W/WOM-MODE COMPL SPEC&COLR D Bernard De La Cruz MD [address] [facility], [facility] [address] [place] [address] Referral ID Status Reason Start Date Expiration Date Visits Requested Visits Authorized [id number] Authorized Perform Procedure 01/01/2024 12/31/2024 1 1 Reason Comments New Patient Poor Circulation - R eferral from Dr. Soto - No appt available in [place] until 11/02/2023; patient is having right leg and foot pain at a 10 right now since surgery 2 weeks ago Specialty Diagnoses / Procedures Referred By Contac t Referred To Contact Vascular Surgery Diagnoses Poor circulation Paula Soto, DPM [address] [place] [address] [facility] [address] [place] [address] Referral ID Status Reason Start Date Expiration Date Visits Requested Visits Authorized [id number] Pending Review Specialty Services Required 10/13/2023 10/12/2024 1 1 Reason Comments Critical limb ischemia of ri ght lower extremity with gangre Follow up on testing completed in [facility] Check insession Reason Comments Angioplasty RLE follow up - procedure at [facility]. 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 AT [facility] Incision w ith toshia, well approximated [...] Provider Active Start : March 05, 2024 iMke Burleson MD Attending Provider, Other Provider Active [...] Provider Active Sta rt: October 06, 2023 Body Component Engineer Relationship Specialty Start Date End Date Teresa [...] April 24, 2024 End: April 24, 2024 Body Component Engineer Relationship Specialty Start Date End Date Teresa Lynch DO PCP - General 04/17/19 Namita Mercer LPN Care Grocery Specialist 12/25/23 Body Component Engineer Relationship Specialty Start Date End Date Teresa Lynch MD [address] [place] [phone] PCP - External PCP 03/05/23 Team Status: [...] Other Provider Active Start: October 10, 2024 Doloers Pickard APRN Other Provider Active Start : October 10, 2024 Jeanie Conde MD Other Provider Active Start: Sarika ay 2024 Andrew Montes MD Other Provider Active Start: October 10, 2024 Shaheed Barboza MD Other Provider Active Start: M ay 2024 Maryann Pierre , [facility]- Other Provider Active Sta rt: October 10, 2024 Team Status: Inactive Member Role Status Dates Teresa Lynch DO Primary Care Provider Active Sta rt: October 10, 2024 End: October 11, 2024 Jez Dominguez PA-C Emergency Provider Active [...] Sarika garcia 2024 End: October 26, 2024 Muarice Francis MD Other Provider Active Start: Sallie [...] and content) DATE CREATED AUTHOR 11/11/2022 [facility] DATE CREATED AUTHOR AUTHOR'S ORGANIZ ATION 01/27/2023 [facility] DATE CREATED AUTHOR AUTHOR'S ORGANIZ ATION 02/16/2023 [facility] DATE CREATED AUTHOR AUTHOR'S ORGANIZ ATION 02/16/2023 [facility] DATE CREATED AUTHOR AUTHOR'S ORGANIZ ATION 10/22/2023 [facility] DATE CREATED AUTHOR AUTHOR'S ORGANIZ ATION 11/16/2023 [facility] DATE CREATED AUTHOR AUTHOR'S ORGANIZ ATION 11/25/2023 [facility] DATE CREATED AUTHOR AUTHOR'S ORGANIZ ATION 01/10/2024 [facility] DATE CREATED AUTHOR AUTHOR'S ORGANIZ ATION 01/22/2024 [facility] DATE CREATED AUTHOR AUTHOR'S ORGANIZ ATION 02/13/2024 [facility] DATE CREATED AUTHOR AUTHOR'S ORGANIZ ATION 02/14/2024 [facility] DATE CREATED AUTHOR AUTHOR'S ORGANIZ ATION 02/15/2024 [facility] DATE CREATED AUTHOR AUTHOR'S ORGANIZ ATION 02/16/2024 [facility] DATE CREATED AUTHOR AUTHOR'S ORGANIZ ATION 02/17/2024 [facility] DATE CREATED AUTHOR AUTHOR'S ORGANIZ ATION 02/18/2024 [facility] DATE CREATED AUTHOR AUTHOR'S ORGANIZ ATION 02/19/2024 [facility] DATE CREATED AUTHOR AUTHOR'S ORGANIZ ATION 02/20/2024 [facility] DATE CREATED AUTHOR AUTHOR'S ORGANIZ ATION 02/21/2024 [facility] DATE CREATED AUTHOR AUTHOR'S ORGANIZ ATION 02/22/2024 [facility] DATE CREATED AUTHOR AUTHOR'S ORGANIZ ATION 02/23/2024 [facility] DATE CREATED AUTHOR AUTHOR'S ORGANIZ ATION 02/24/2024 [facility] DATE CREATED AUTHOR AUTHOR'S ORGANIZ ATION 03/14/2024 [facility] DATE CREATED AUTHOR AUTHOR'S ORGANIZ ATION 05/29/2024 [facility] DATE CREATED AUTHOR AUTHOR'S ORGANIZ ATION 09/29/2024 [facility] DATE CREATED AUTHOR AUTHOR'S ORGANIZ ATION 11/08/2024 [facility] DATE CREATED AUTHOR AUTHOR'S ORGANIZ ATION 11/22/2024 [facility] FOR RECORDS PERTAINING TO PATIENTS WHO [...] BE BASED ON THE PRIMARY CLINICAL RECORDS. [facility] [employer] [facility]. provides no warranty or guarantee of the accuracy or completeness of information in this document.
[2024-12-15 12:45] LABS: Lactate/Lactic Acid 2.1 mmol/L (0.4-2.0)
[2024-12-15] MEDS: LINEZOLID IN DEXTROSE 5% 600 MG/300 ML PIGGYBACK 300 MG IV (14:18)
[2024-12-15] MEDS: 0.9 % SODIUM CHLORIDE 1,000 ML 100 ML IV (14:18)
[2024-12-15] MEDS: ROPINIROLE HCL 1 MG TABLET 0.5 MG PO ×2 (14:19→21:15)
[2024-12-15] MEDS: PREGABALIN 100 MG CAPSULE PO ×2 (14:19→21:14)
[2024-12-15] MEDS: HEPARIN SODIUM (PORCINE) 5,000 UNIT/ML VIAL 5000 UNIT SUBQ ×2 (14:19→21:15)
[2024-12-15] MEDS: OXYCODONE HCL 5 MG TABLET PO ×2 (15:29→21:19)
[2024-12-15 16:00] VITALS: BP 113/76; PULSE 68; TEMP 36.4; O2SAT 92
[2024-12-15] MEDS: INSULIN ASPART 300 UNIT/3 ML PEN SUBQ (16:42)
[2024-12-15] MEDS: GLIMEPIRIDE 2 MG TABLET 1 MG PO (16:43)
[2024-12-15 20:00] VITALS: BP 150/81; PULSE 69; TEMP 36.8; O2SAT 99
[2024-12-15 20:07] VITALS: PULSE 73; O2SAT 97
[2024-12-15] MEDS: BUDESONIDE 0.5 MG/2 ML AMPULE NEB IH (20:07)
[2024-12-15] MEDS: IPRATROPIUM/ALBUTEROL SULFATE 3 ML AMPUL.NEB IH (20:07)
[2024-12-15] MEDS: ATORVASTATIN CALCIUM 40 MG TABLET 80 MG PO (21:14)
[2024-12-15] MEDS: HYDROXYZINE HCL 25 MG TABLET PO (21:14)
[2024-12-15] MEDS: FERROUS SULFATE 325 MG TABLET PO (21:14)
[2024-12-15] MEDS: METOPROLOL TARTRATE 50 MG TABLET PO (21:15)
[2024-12-15] MEDS: TAMSULOSIN HCL 0.4 MG CAPSULE PO (21:15)
[2024-12-16] VITALS (9 sets, daily range): BP systolic 121–153; BP diastolic 74–94; PULSE 66–78; TEMP 36.3–36.5; O2SAT 93–98
--- NOTE | 2024-12-16 | MR_ITS ---
[address] [address] Patient Name: MYRA FELIPE MRN: [id number] date: 1965 Sex: M Assigned Patient Location: [place] Current Patient Location: [place] Accession/Order Number: [id number] Exam Date: 12/16/2024 13:04 Report Date: 12/16/2024 13:12 At the request of: RUTH ANN BALDWIN MD Procedure: MR foot LT wo con MRI left forefoot Without contrast TECHNIQUE: Multiplanar T1 and T2-weighted imaging of the foot obtained without contrast. HISTORY: Assessment for osteomyelitis. Sepsis. The left foot infection. Swelling laterally. COMPARISON:None SKIN MARKER: None BONY ALIGNMENT: Adequate BONE INFILTRATION:None BONY LESION: None BONE MARROW EDEMA: None TENDONS: Intact INTRINSIC MUSCLES: Normal signal PLANTAR PLATE: Intact WONG'S NEUROMA: None OSTEOMYELITIS No osteomyelitis SOFT TISSUES: Lateral soft tissue edema. No fluid collection. MR/MR foot LT wo con Impression: No cortical destruction. No bone marrow edema. No findings of osteomyelitis. Lateral soft tissue swelling. Consider cellulitis. No soft tissue abscess. Impression dictated by: Sudeep Lind M.D. 12/16/2024 1:12 PM Dictation Location: [place] [address] Electronically authenticated by: [id number] Y Date: 12/16/2024 13:12
[2024-12-16] MEDS: LINEZOLID IN DEXTROSE 5% 600 MG/300 ML PIGGYBACK 300 MG IV ×2 (01:57→13:24)
[2024-12-16] MEDS: HEPARIN SODIUM (PORCINE) 5,000 UNIT/ML VIAL 5000 UNIT SUBQ ×3 (05:27→21:07)
[2024-12-16] MEDS: PREGABALIN 100 MG CAPSULE PO ×3 (05:27→21:08)
[2024-12-16] MEDS: ROPINIROLE HCL 1 MG TABLET 0.5 MG PO ×3 (05:27→21:08)
[2024-12-16] MEDS: PANTOPRAZOLE SODIUM 40 MG TABLET.DR PO (05:40)
[2024-12-16] MEDS: LEVOFLOXACIN IN DEXTROSE 5 % 750 MG/150 ML PREMIX 100 MG IV (05:44)
[2024-12-16 06:02] LABS: Hematocrit 45.0 % (42.0-54.0); Hemoglobin 15.0 g/dL (14.0-18.0); Immature Granulocytes Abs Auto 0.04 10^3/uL (0.00-0.03); Immature Granulocytes Pct Auto 0.5 % (0.0-0.5); Lymphocytes Absolute Auto 1.8 10^3/uL (1.2-3.8); Mean Corpuscular HGB Conc 33.3 g/dL (29.9-35.2); Mean Corpuscular Hemoglobin 28.5 pg (25.9-34.0); Mean Corpuscular Volume 85.6 fL (80.0-94.0); Platelet Count 127 10^3/uL (150-450); Red Blood Count 5.26 10^6/uL (4.70-6.10); White Blood Count 7.9 10^3/uL (4.0-11.0)
[2024-12-16 06:20] LABS: Alanine Aminotransferase 20 U/L (16-63); Albumin Globulin Ratio 0.9; Albumin Level 3.0 g/dL (3.4-5.0); Alkaline Phosphatase 144 U/L (46-116); Anion Gap 14.2; Aspartate Amino Transferase 17 U/L (15-37); Blood Urea Nitrogen 28.0 mg/dL (7.0-18.0); Calcium 8.5 mg/dL (8.5-10.1); Carbon Dioxide 28.4 mmol/L (21.0-32.0); Chloride 101 mmol/L (98-107); Estimated GFR (African America 36 (>=60 mL/min/1.73m^2); Estimated GFR (Non-African Ame 29 (>=60 mL/min/1.73m^2); Globulin 3.2 g/dL; Glucose 244 mg/dL (74-106); Potassium 3.6 mmol/L (3.5-5.1); Sodium 140 mmol/L (136-145); Total Protein 6.2 g/dL (6.4-8.2)
--- NOTE | 2024-12-16 08:00 | CM.NOTE ---
Rounds made with Dr. Ervin, pt will have MRI today for further evaluation of L foot. Dr. Ervin discussed plan of care with pt, pt verbalizes understanding. No discharge today.
[2024-12-16] MEDS: METOPROLOL TARTRATE 50 MG TABLET PO ×2 (08:23→21:08)
[2024-12-16] MEDS: FERROUS SULFATE 325 MG TABLET PO ×2 (08:23→21:08)
[2024-12-16] MEDS: CALCIUM CARBONATE 600 MG/VITAMIN D3 400 IU TABLET 1 TAB PO (08:23)
[2024-12-16] MEDS: TAMSULOSIN HCL 0.4 MG CAPSULE PO ×2 (08:23→21:08)
[2024-12-16] MEDS: OXYCODONE HCL 5 MG TABLET PO ×2 (08:23→13:24)
[2024-12-16] MEDS: CLOPIDOGREL BISULFATE 75 MG TABLET PO (08:23)
[2024-12-16] MEDS: ONDANSETRON 4 MG RAPDIS TABLET SL (08:23)
[2024-12-16] MEDS: GLIMEPIRIDE 2 MG TABLET 1 MG PO (08:23)
[2024-12-16] MEDS: MAGNESIUM OXIDE 400 MG TABLET PO (08:23)
[2024-12-16] MEDS: CLONAZEPAM 0.5 MG TABLET PO (08:23)
[2024-12-16] MEDS: ALLOPURINOL 100 MG TABLET PO (08:24)
[2024-12-16] MEDS: ASPIRIN 81 MG TABLET.DR PO (08:24)
[2024-12-16] MEDS: BUDESONIDE 0.5 MG/2 ML AMPULE NEB IH ×2 (08:41→20:03)
[2024-12-16] MEDS: IPRATROPIUM/ALBUTEROL SULFATE 3 ML AMPUL.NEB IH ×2 (08:41→20:03)
[2024-12-16] MEDS: DIAZEPAM 5 MG TABLET PO (09:07)
--- NOTE | 2024-12-16 09:08 | PC.NURSE ---
Mental Measurements Teacher clarified with Ann in pharmacy that it was OK to give oral valium after just giving oral clonazepam. She states they are both small doses so it was OK to give. Patient has been medicated as ordered.
--- NOTE | 2024-12-16 09:12 | PM.PN ---
Progress Note: Subjective Subjective Interval history: Patient continues to have pain and discomfort in the left foot. No chest pain. No abdominal pain. No nausea or vomiting Exam Narrative Exam Narrative: [pt is awake and alert. oriented to place, time and person HEENT: Pale conjunctiva and NL buccal mucosa Neck: Supple, no tenderness Endocrine: No Thyromegaly. Vascular: No JVD or carotid bruit. Lymphatic: No cervical lymphadenopathy. Chest: CTA no DTP. Heart RRR, no extra sound or murmur. Abd: Soft, no tenderness, no rebound and no rigidity. Increase abd girth therefore clinically I could not exclude the possibility of intra abd mass or organomegaly. LE: Right below-knee amputation. Left foot is significantly erythematous, swollen near the ankle and proximal metatarsal area. Faint dorsalis pedis pulse. Neuro: A A O. Nl speech, comprehension and attention. Nl and symetrical motor and tone examination through out. []] Constitutional Vital Signs, click to edit/add: Last Vital Signs Temp 97.4 F L 12/16/24 07:37 Pulse 78 12/16/24 08:43 Resp 18 12/16/24 07:37 BP 135/79 12/16/24 07:37 Pulse Ox 98 12/16/24 08:43 O2 Del Method Room Air 12/16/24 08:43 Progress Note: Objective Labs Labs: Short CBC 12/15/24 12/16/24 Range/Units 09:29 05:17 WBC 10.0 7.9 (4.0-11.0) 10^3/uL Hgb 16.9 15.0 (14.0-18.0) g/dL Hct 50.1 45.0 (42.0-54.0) % Plt Count 140 L 127 L (150-450) 10^3/uL BMP 12/15/24 12/16/24 09:29 05:17 Sodium 137 140 Potassium 3.7 3.6 Chloride 97 L 101 Carbon Dioxide 27.3 28.4 BUN 35.0 H 28.0 H Creatinine 2.75 H 2.30 H Glucose 320 H 244 H Calcium 9.4 8.5 Liver Function 12/15/24 12/16/24 Range/Units 09:29 05:17 Total Bilirubin 0.5 0.4 (0.2-1.0) mg/dL AST 16 17 (15-37) U/L ALT 21 20 (16-63) U/L Alkaline Phosphatase 152 H 144 H (46-116) U/L Albumin 3.5 3.0 L (3.4-5.0) g/dL Progress Note: A&P Assessment and Plan (1) Sepsis: (2) Cellulitis: (3) Peripheral vascular disease: Plan Sepsis present on admission secondary to right foot infection, probable abscess formation Sepsis protocol was followed including IV fluid infusion and cultures. Initiation of the appropriate antibiotic to cover MRSA, gram-negative, probable pseudomonas MRI to take a better look at the foot and see the extent of the infection, rule out abscess, rule out osteomyelitis. Podiatry consultation for the possible need of incision and drainage. MICHELLE index to exclude significant vascular disease Peripheral vascular disease. Status post stenting of the iliac arteries Pain dorsalis pedis pulse. Requested MICHELLE index. Patient may need vascular evaluation before any podiatry intervention Tobacco addiction, 1 pack/day. Counseling and patient to quit smoking. NicoDerm patch Diabetes. Poor control. Started patient on Accu-Chek with sliding scale coverage. Check A1c. Added meal insulin. Continue Amaryl. Coronary artery disease. Previous coronary artery stenting. No active chest pain or angina. Check EKG, no ST elevation or depression CKD stage III borderline stage IV. Acute kidney failure, likely secondary to above Avoid nephrotoxic drugs Hold ARB. Gentle IV fluid infusion. Right below-knee amputation Hypertension Depression DVT prophylaxis Subcutaneous heparin. Chronic medical conditions not listed above, incidental findings seen on labs and imaging. These would need to be addressed. Could be addressed when time and condition are appropriate. Could be addressed in the outpatient setting by PCP collaboration with other needed outpatient providers.
--- NOTE | 2024-12-16 09:54 | SWNOTE1 ---
SW and I met with pt to discuss discharge needs. Pt has right leg amputation below knee. Pt lives at home with his . He uses an electric scooter. He does not drive, he voices he is working on getting an extension in his car to drive with prosthetic. Pt does not have any services coming into home. Pt voices he does not anticipate any d/c needs. SW to follow as needed.
[2024-12-16] MEDS: SODIUM CHLORIDE 0.45 % 1,000 ML 100 ML IV (11:11)
[2024-12-16] MEDS: INSULIN ASPART 300 UNIT/3 ML PEN SUBQ ×5 (11:13→21:10)
--- NOTE | 2024-12-16 11:56 | CA_ITS ---
[facility] Test Date: 2024-12-16 Pat Name: MYRA FELIPE Department: Room: [facility]– [place][note 2] Gender: Male Moccasin Sewer: : 1965 Requested By: [id number] Order Number: [id number] Reading MD: LOIS GUDINO Interpretive Statements Abnormal left ankle brachial index; moderately reduced MICHELLE on the left. Monophasic waveform. Evidence of significant peripheral arterial disease involving the left lower extremity. Electronically Signed On 12-17-2024 12:49:31 EDT by LOIS GUDINO
[2024-12-16 12:53] LABS: Glucose Urine UA >=1000 mg/dL (NEGATIVE)
[2024-12-16 13:10] LABS: Cast Seen? NONE SEEN #/LPF (NONE SEEN); Crystals Seen? None Seen #/HPF (None Seen); Urine Culture Indicated NO
[2024-12-16] MEDS: ACETAMINOPHEN 325 MG TABLET 650 MG PO (13:24)
--- NOTE | 2024-12-16 14:50 | PM.CN ---
Consult Note: [facility] Data of Consult Consult date: 12/16/24 Requesting Physician: Remberto Ervin MD Primary Care Provider: Jenaro Valadez DO Consult Narrative Reason for consult: left diabetic foot infection Narrative: Mr. Feldman is a 59 yo male with T2DM and history of right BKA. He presented to the ER yesterday secondary to new onset redness and swelling to his left foot. He did have an injury involving his motorized scooter on his left foot resulting in an abrasion. He noted yesterday having significant swelling over his dorsal and lateral foot accompanied with chills. X-rays obtained in the emergency department were negative for osseous pathology noting only dorsal foot swelling. An MRI was then obtained today and was negative for abscess or deep space infection. Since receiving IV antibiotics his white blood cell count and CRP are trending down. ESR on admission was 34. At bedside patient relates he is feeling much improved since being admitted and noting that the redness on his left foot has improved. He currently denies pain to his left foot. His appetite is good. cc:: CC: Remberto Ervin MD Review of Systems ROS Status of ROS 10 or more systems reviewed and unremarkable except as noted in history and below [facility] Medical History (Updated 12/16/24 @ 16:34 by Fredy Elias DPM) Chest pain ?R07.9 - Chest pain, unspecified (ICD-10) Acute osteomyelitis of right foot ?M86.171 - Other acute osteomyelitis, right ankle and foot (ICD-10) Chronic ulcer of right foot ?L97.519 - Non-pressure chronic ulcer of other part of right foot with unspecified severity (ICD-10) Coronary artery disease ?I25.10 - Atherosclerotic heart disease of [place] coronary artery without angina pectoris (ICD-10) COPD (chronic obstructive pulmonary disease) ?J44.9 - Chronic obstructive pulmonary disease, unspecified (ICD-10) Hypertension ?I10 - Essential (primary) hypertension (ICD-10) Post-op bleeding Acute pain of right hip ?M25.551 - Pain in right hip (ICD-10) Foot osteomyelitis ?M86.9 - Osteomyelitis, unspecified (ICD-10) Ulcer of right foot with necrosis of bone ?L97.514 - Non-pressure chronic ulcer of other part of right foot with necrosis of bone (ICD-10) Hypocalcemia ?E83.51 - Hypocalcemia (ICD-10) Hypomagnesemia ?E83.42 - Hypomagnesemia (ICD-10) Sepsis ?A41.9 - Sepsis, unspecified organism (ICD-10) Wound of foot ?S91.309A - Unspecified open wound, unspecified foot, initial encounter (ICD-10) Abscess of right foot ?L02.611 - Cutaneous abscess of right foot (ICD-10) Anticoagulated ?Z79.01 - FDC (current) use of anticoagulants (ICD-10) Diabetic infection of right foot ?E11.628 - Type 2 diabetes mellitus with other skin complications (ICD-10) ?L08.9 - Local infection of the skin and subcutaneous tissue, unspecified (ICD-10) Puncture wound of right foot ?S91.331A - Puncture wound without foreign body, right foot, initial encounter (ICD-10) Cellulitis of foot, right ?L03.115 - Cellulitis of right lower limb (ICD-10) Sepsis ?A41.9 - Sepsis, unspecified organism (ICD-10) CHF (congestive heart failure) ?I50.9 - Heart failure, unspecified (ICD-10) Migraine headache ?G43.909 - Migraine, unspecified, not intractable, without status migrainosus (ICD-10) Carpal tunnel syndrome ?G56.00 - Carpal tunnel syndrome, unspecified upper limb (ICD-10) Back pain ?M54.9 - Dorsalgia, unspecified (ICD-10) Arthritis ?M19.90 - Unspecified osteoarthritis, unspecified site (ICD-10) Restless leg ?G25.81 - Restless legs syndrome (ICD-10) GERD (gastroesophageal reflux disease) ?K21.9 - Gastro-esophageal reflux disease without esophagitis (ICD-10) High cholesterol ?E78.00 - Pure hypercholesterolemia, unspecified (ICD-10) Myocardial infarction ?I21.9 - Acute myocardial infarction, unspecified (ICD-10) Dementia ?F03.90 - Unspecified dementia, unspecified severity, without behavioral disturbance, psychotic disturbance, mood disturbance, and anxiety (ICD-10) CKD stage 4 due to type 2 diabetes mellitus ?E11.22 - Type 2 diabetes mellitus with diabetic chronic kidney disease (ICD-10) ?N18.4 - Chronic kidney disease, stage 4 (severe) (ICD-10) Hyperlipidemia ?E78.5 - Hyperlipidemia, unspecified (ICD-10) Polyp of prostate with urinary obstruction ?N40.1 - Benign prostatic hyperplasia with lower urinary tract symptoms (ICD-10) ?N13.8 - Other obstructive and reflux uropathy (ICD-10) Femoral artery stenosis ?I70.209 - Unspecified atherosclerosis of [place] arteries of extremities, unspecified extremity (ICD-10) Glaucoma ?H40.9 - Unspecified glaucoma (ICD-10) Carpal tunnel syndrome, bilateral ?G56.03 - Carpal tunnel syndrome, bilateral upper limbs (ICD-10) Gout ?M10.9 - Gout, unspecified (ICD-10) Chronic kidney disease ?N18.9 - Chronic kidney disease, unspecified (ICD-10) Weakness ?R53.1 - Weakness (ICD-10) Surgical History H/O foot surgery (08/10/23) ?Z98.890 - Other specified postprocedural states (ICD-10) S/P TURP (04/13/23) ?Z90.79 - Acquired absence of other genital organ(s) (ICD-10) H/O foot surgery (08/05/23) ?Z98.890 - Other specified postprocedural states (ICD-10) History of heart artery stent ?Z95.5 - Presence of coronary angioplasty implant and graft (ICD-10) History of spinal surgery ?Z98.890 - Other specified postprocedural states (ICD-10) History of colonoscopy ?Z98.890 - Other specified postprocedural states (ICD-10) History of carpal tunnel release ?Z98.890 - Other specified postprocedural states (ICD-10) History of cataract extraction ?Z98.49 - Cataract extraction status, unspecified eye (ICD-10) History of appendectomy ?Z90.49 - Acquired absence of other specified parts of digestive tract (ICD-10) History of heart artery stent ?Z95.5 - Presence of coronary angioplasty implant and graft (ICD-10) Family History Mother Family history of CHF (congestive heart failure) Family history of diabetes mellitus Family history of hypertension Grandfather Family history of CHF (congestive heart failure) Family history of diabetes mellitus Family history of hypertension Family history of myocardial infarction Grandmother Family history of hypertension Social History Within the past year, how often did you have a drink containing alcohol: never Within the past year, how often did you have six or more drinks on one occasion: never Score interpretation: A score less than 4 is consistent with normal alcohol consumption. Smoking status: Current every day smoker What tobacco products do you use: cigarettes Cigarettes per day: 20 Years smoked: 42 Smoking pack-years: 42.00 Nicotine containing products detail: Approx 1 pack QOD Non-prescribed substance use: denies use Previous occupational history: DISABLED Known occupational exposures/hazards: No Highest level of school completed/degree received: high school graduate Are you now , , , , never or living with a partner: In a typical week, how many times do you talk on the telephone with family, friends, or neighbors: once per week How often do you get together with friends or relatives: once per week How often do you attend anglican or yazidi services: never Do you belong to any clubs or organizations such as anglican groups unions, Disconnect or athletic groups, or school groups: no Total score: 1 Score interpretation: A score of less than or equal to 1 indicates the most socially isolated. Little interest or pleasure in doing things: not at all Feeling down, depressed, or hopeless: not at all Feel stressed/tense/nervous/anxious/difficulty sleeping: not at all Due to disability, difficulty making decisions: No Do you think of yourself as: straight/heterosexual Gender Identity: male Meds Home Medications and Allergies Home Medications ?Medication ?Instructions ?Recorded ?Confirmed ?Type empagliflozin 10 mg tablet 10 mg PO DAILY 03/03/23 12/15/24 History (Jardiance) nitroglycerin 0.4 mg sublingual 0.4 mg sublingual Q5M PRN chest 03/03/23 12/15/24 History tablet pain omeprazole 40 mg capsule,delayed 40 mg PO DAILY 03/03/23 12/15/24 History release pregabalin 200 mg capsule 200 mg PO TID 03/03/23 12/15/24 History albuterol sulfate 90 mcg/actuation 2 inh inhalation Q8H PRN shortness 12/09/23 12/15/24 History aerosol inhaler (Proventil HFA) of breath or wheezing aspirin 81 mg tablet,delayed 81 mg PO DAILY 12/09/23 12/15/24 History release atorvastatin 80 mg tablet 80 mg PO DAILY 12/09/23 12/15/24 History clopidogrel 75 mg tablet 75 mg PO DAILY 12/09/23 12/15/24 History dulaglutide 0.75 mg/0.5 mL 0.75 mg subcut QWEEK 12/09/23 12/15/24 History subcutaneous pen injector (Trulicity) sildenafil 100 mg tablet 100 mg PO Q24H PRN erectile 12/09/23 12/15/24 History dysfunction tamsulosin 0.4 mg capsule 0.4 mg PO BID 12/09/23 12/15/24 History amitriptyline 25 mg tablet 25 mg PO DAILY 12/10/23 12/15/24 History budesonide-formoterol HFA 160 2 inh inhalation BID 12/10/23 12/15/24 History mcg-4.5 mcg/actuation aerosol inhaler (Symbicort) furosemide 40 mg tablet (Lasix) 40 mg PO DAILY 12/10/23 12/15/24 History glimepiride 2 mg tablet 2 mg PO BIDWM 12/10/23 12/15/24 History tiotropium bromide 2.5 2 puff inhalation DAILY 12/22/23 12/15/24 History mcg/actuation mist for inhalation (Spiriva Respimat) metformin 1,000 mg tablet 1,000 mg PO BID 02/01/24 12/15/24 History allopurinol 100 mg tablet 100 mg PO DAILY 12/15/24 12/15/24 History blood-glucose sensor (FreeStyle 12/15/24 12/15/24 History Jigar 2 Plus Sensor device) calcium 500 mg (as 1 tab PO DAILY 12/15/24 12/15/24 History carbonate)-vitamin D3 10 mcg (400 unit) tablet (Calcium 500 With D) clonazepam 0.5 mg tablet 0.5 mg PO QAM 12/15/24 12/15/24 History ferrous sulfate 325 mg (65 mg 325 mg PO BID 12/15/24 12/15/24 History iron) tablet hydroxyzine HCl 25 mg tablet 25 mg PO .QHS 12/15/24 12/15/24 History magnesium oxide 400 mg (241.3 mg 400 mg PO DAILY 12/15/24 12/15/24 History magnesium) tablet metoprolol tartrate 25 mg tablet 50 mg PO BID 12/15/24 12/15/24 History ropinirole 0.5 mg tablet 0.5 mg PO TID 12/15/24 12/15/24 History sitagliptin phosphate 100 mg 100 mg PO DAILY 12/15/24 12/15/24 History tablet (Januvia) valsartan 80 1 tab PO .QD 12/15/24 12/15/24 History mg-hydrochlorothiazide 12.5 mg tablet Allergies Allergy/AdvReac Type Severity Reaction Status Date / Time Penicillins Allergy Severe Swelling Verified 07/24/24 20:31 of Lip/Tongue/Throat bee venom protein (honey bee) Allergy Swelling Verified 07/24/24 20:31 of Lip/Tongue/Throat latex Allergy Rash Verified 07/24/24 20:31 Exam Narrative Exam Narrative: Skin: 3x1 cm abrasion noted on his dorsal midfoot with no active drainage. No fluctuance. Erythema has subsided as compared to the skin marker placed yesterday and now is limited to the lateral midfoot. Vascular: Pedal pulses are faintly palpable. Absent digital hair growth. No calf pain on squeeze Neuro: Absent protective sensation. No pain out of proportion Musculoskeletal: Right below-knee amputation is noted. Patient is able to fire all muscle groups on the left foot and ankle without pain or guarding. Chronic toe contractures on the left foot are noted Constitutional Vital Signs, click to edit/add: Last Vital Signs Temp 97.5 F L 12/16/24 11:18 Pulse 76 12/16/24 11:18 Resp 18 12/16/24 11:18 BP 128/83 12/16/24 11:18 Pulse Ox 98 12/16/24 11:18 O2 Del Method Room Air 12/16/24 11:18 Results Labs Labs: Short CBC 12/16/24 Range/Units 05:17 WBC 7.9 (4.0-11.0) 10^3/uL Hgb 15.0 (14.0-18.0) g/dL Hct 45.0 (42.0-54.0) % Plt Count 127 L (150-450) 10^3/uL BMP 12/16/24 05:17 Sodium 140 Potassium 3.6 Chloride 101 Carbon Dioxide 28.4 BUN 28.0 H Creatinine 2.30 H Glucose 244 H Calcium 8.5 Liver Function 12/16/24 Range/Units 05:17 Total Bilirubin 0.4 (0.2-1.0) mg/dL AST 17 (15-37) U/L ALT 20 (16-63) U/L Alkaline Phosphatase 144 H (46-116) U/L Albumin 3.0 L (3.4-5.0) g/dL Urine 12/16/24 Range/Units 12:05 Urine Color Lt. yellow (YELLOW) Urine Clarity Clear (CLEAR) Urine pH 6.0 (5.0-9.0) Ur Specific [place] <=1.005 A (1.005-1.025) Urine Protein Negative (NEG/TRACE) mg/dL Urine Glucose (UA) >=1000 A (NEGATIVE) mg/dL Assessment and Plan Assessment and Plan (1) Sepsis: (2) Cellulitis: Qualifiers: Site of cellulitis: extremity Site of cellulitis of extremity: lower extremity Laterality: left Qualified Code(s): L03.116 - Cellulitis of left lower limb (3) Peripheral vascular disease: Plan Patient seen at bedside and is showing both subjective and objective improvement since being admitted yesterday for diabetic foot infection X-rays and MRI were reviewed and negative for deep soft tissue infection. WBC and inflammatory markers are trending down No surgical intervention planned during this hospital stay Recommend to continue current antibiotics while admitted and discharge patient on p.o. antibiotics (Cipro/Linezolid) for approximately 2 weeks F/u in wound center 1 week from d/c
[2024-12-16] MEDS: GLIMEPIRIDE 2 MG TABLET PO (16:15)
[2024-12-16] MEDS: ATORVASTATIN CALCIUM 40 MG TABLET 80 MG PO (21:08)
[2024-12-16] MEDS: HYDROXYZINE HCL 25 MG TABLET PO (21:10)
[2024-12-17] MEDS: LINEZOLID IN DEXTROSE 5% 600 MG/300 ML PIGGYBACK 200 MG IV (02:05)
[2024-12-17 03:42] VITALS: BP 116/73; PULSE 70; TEMP 36.5; O2SAT 95
[2024-12-17] MEDS: ROPINIROLE HCL 1 MG TABLET 0.5 MG PO ×3 (05:37→21:23)
[2024-12-17] MEDS: PREGABALIN 100 MG CAPSULE PO ×3 (05:37→21:24)
[2024-12-17] MEDS: HEPARIN SODIUM (PORCINE) 5,000 UNIT/ML VIAL 5000 UNIT SUBQ ×3 (05:37→21:24)
[2024-12-17] MEDS: PANTOPRAZOLE SODIUM 40 MG TABLET.DR PO (05:37)
[2024-12-17 07:24] VITALS: BP 120/71; PULSE 74; TEMP 36.5; O2SAT 94
--- NOTE | 2024-12-17 08:15 | CM.NOTE ---
Rounds made with Dr. Ervin, discussed with pt results of MRI. Pt updated on plan of care awaiting brachial index doppler results.
[2024-12-17] MEDS: TAMSULOSIN HCL 0.4 MG CAPSULE PO ×2 (08:48→21:23)
[2024-12-17] MEDS: METOPROLOL TARTRATE 50 MG TABLET PO ×2 (08:48→21:23)
[2024-12-17] MEDS: CALCIUM CARBONATE 600 MG/VITAMIN D3 400 IU TABLET 1 TAB PO (08:48)
[2024-12-17] MEDS: GLIMEPIRIDE 2 MG TABLET PO ×2 (08:48→17:03)
[2024-12-17] MEDS: CLOPIDOGREL BISULFATE 75 MG TABLET PO (08:48)
[2024-12-17] MEDS: ASPIRIN 81 MG TABLET.DR PO (08:48)
[2024-12-17] MEDS: FERROUS SULFATE 325 MG TABLET PO ×2 (08:48→21:23)
[2024-12-17] MEDS: MAGNESIUM OXIDE 400 MG TABLET PO (08:48)
[2024-12-17] MEDS: CLONAZEPAM 0.5 MG TABLET PO (08:48)
[2024-12-17] MEDS: ALLOPURINOL 100 MG TABLET PO (08:48)
[2024-12-17] MEDS: OXYCODONE HCL 5 MG TABLET PO ×3 (08:56→17:03)
[2024-12-17 09:01] VITALS: PULSE 76; O2SAT 96
[2024-12-17] MEDS: BUDESONIDE 0.5 MG/2 ML AMPULE NEB IH ×2 (09:01→20:01)
[2024-12-17] MEDS: IPRATROPIUM/ALBUTEROL SULFATE 3 ML AMPUL.NEB IH ×2 (09:01→20:01)
--- NOTE | 2024-12-17 10:48 | P.PN_ITS ---
Progress Note: Subjective Subjective Interval history: Patient is feeling well. Less pain and discomfort. No chest pain. No abdominal pain. No nausea or vomiting Exam Narrative Exam Narrative: Skin: 3x1 cm abrasion noted on his dorsal midfoot with no active drainage. No fluctuance. Erythema has subsided as compared to the skin marker placed yesterday and now is limited to the lateral midfoot. Vascular: Pedal pulses are faintly palpable. Absent digital hair growth. No calf pain on squeeze Neuro: Absent protective sensation. No pain out of proportion [pt is awake and alert. oriented to place, time and person HEENT: Pale conjunctiva and NL buccal mucosa Neck: Supple, no tenderness Endocrine: No Thyromegaly. Vascular: No JVD or carotid bruit. Lymphatic: No cervical lymphadenopathy. Chest: CTA no DTP. Heart RRR, no extra sound or murmur. Abd: Soft, no tenderness, no rebound and no rigidity. Increase abd girth therefore clinically I could not exclude the possibility of intra abd mass or organomegaly. LE: Right below-knee amputation. Left foot is significantly erythematous, swollen near the ankle and proximal metatarsal area. Faint dorsalis pedis pulse. Neuro: A A O. Nl speech, comprehension and attention. Nl and symetrical motor and tone examination through out. []] Musculoskeletal: Right below-knee amputation is noted. Patient is able to fire all muscle groups on the left foot and ankle without pain or guarding. Constitutional Vital Signs, click to edit/add: Last Vital Signs Temp 97.7 F 12/17/24 07:24 Pulse 76 12/17/24 09:01 Resp 16 12/17/24 09:01 BP 120/71 12/17/24 07:24 Pulse Ox 96 12/17/24 09:01 O2 Del Method Room Air 12/17/24 09:01 Progress Note: Objective Labs Labs: Urine 12/16/24 Range/Units 12:05 Urine Color Lt. yellow (YELLOW) Urine Clarity Clear (CLEAR) Urine pH 6.0 (5.0-9.0) Ur Specific [place] <=1.005 A (1.005-1.025) Urine Protein Negative (NEG/TRACE) mg/dL Urine Glucose (UA) >=1000 A (NEGATIVE) mg/dL Progress Note: A&P Assessment and Plan (1) Sepsis: (2) Cellulitis: Qualifiers: Laterality: left Site of cellulitis: extremity Site of cellulitis of extremity: lower extremity Qualified Code(s): L03.116 - Cellulitis of left lower limb (3) Peripheral vascular disease: Plan Sepsis present on admission secondary to right foot infection, probable abscess formation Sepsis protocol was followed including IV fluid infusion and cultures. Initiation of the appropriate antibiotic to cover MRSA, gram-negative, probable pseudomonas MRI to take a better look at the foot and see the extent of the infection, rule out abscess, rule out osteomyelitis. MRI does not show any abscess formation or osteomyelitis Podiatry consultation for the possible need of incision and drainage. Tap Grinder did not recommend any incision and drainage MICHELLE index to exclude significant vascular disease, still pending. No clinical evidence of acute arterial compromise Peripheral vascular disease. Status post stenting of the iliac arteries Pain dorsalis pedis pulse. Requested MICHELLE index. Patient may need vascular evaluation before any podiatry intervention No clinical evidence of acute arterial occlusion or compromise. No significant pain. No cyanosis. Arrange for patient to follow-up with vascular in fact the patient has a follow- up appointment with vascular surgeon in [place] in 2 weeks. Same surgeon goes to [place] now and patient is planning to see him there. Tobacco addiction, 1 pack/day. Counseling and patient to quit smoking. NicoDerm patch Diabetes. Poor control. Started patient on Accu-Chek with sliding scale coverage. Check A1c. Added meal insulin. Continue Amaryl. Coronary artery disease. Previous coronary artery stenting. No active chest pain or angina. Check EKG, no ST elevation or depression CKD stage III borderline stage IV. Acute kidney failure, likely secondary to above Avoid nephrotoxic drugs Hold ARB. Gentle IV fluid infusion. Right below-knee amputation Hypertension Depression DVT prophylaxis Subcutaneous heparin. Chronic medical conditions not listed above, incidental findings seen on labs and imaging. These would need to be addressed. Could be addressed when time and condition are appropriate. Could be addressed in the outpatient setting by PCP collabo ration with other needed outpatient providers.
--- NOTE | 2024-12-17 11:52 | CM.NOTE ---
Called [facility] cardiology clinic to expedite read on Doppler.
[2024-12-17] MEDS: INSULIN ASPART 300 UNIT/3 ML PEN SUBQ ×5 (11:55→21:25)
[2024-12-17] MEDS: LINEZOLID IN DEXTROSE 5% 600 MG/300 ML PIGGYBACK 300 MG IV (13:05)
[2024-12-17 15:29] VITALS: BP 124/82; PULSE 71; TEMP 36.6; O2SAT 93
[2024-12-17 19:16] VITALS: BP 122/75; PULSE 71; TEMP 36.7; O2SAT 95
[2024-12-17 20:01] VITALS: PULSE 71; O2SAT 98
[2024-12-17] MEDS: HYDROXYZINE HCL 25 MG TABLET PO (21:23)
[2024-12-17] MEDS: ATORVASTATIN CALCIUM 40 MG TABLET 80 MG PO (21:24)
[2024-12-17] MEDS: HYDROMORPHONE HCL 0.5 MG/0.5 ML SYRINGE IVP (21:25)
[2024-12-18] VITALS: BP 126/67; PULSE 71; TEMP 36.6; O2SAT 95
[2024-12-18] MEDS: LINEZOLID IN DEXTROSE 5% 600 MG/300 ML PIGGYBACK 300 MG IV (02:04)
[2024-12-18] MEDS: HYDROMORPHONE HCL 0.5 MG/0.5 ML SYRINGE IVP (03:20)
[2024-12-18 04:00] VITALS: BP 118/71; PULSE 71; TEMP 36.6; O2SAT 93
[2024-12-18] MEDS: HEPARIN SODIUM (PORCINE) 5,000 UNIT/ML VIAL 5000 UNIT SUBQ (06:09)
[2024-12-18] MEDS: PREGABALIN 100 MG CAPSULE PO ×2 (06:10→13:11)
[2024-12-18] MEDS: LEVOFLOXACIN IN DEXTROSE 5 % 750 MG/150 ML PREMIX 100 MG IV (06:10)
[2024-12-18] MEDS: PANTOPRAZOLE SODIUM 40 MG TABLET.DR PO (06:10)
[2024-12-18] MEDS: ROPINIROLE HCL 1 MG TABLET 0.5 MG PO ×2 (06:10→13:11)
[2024-12-18] MEDS: GLIMEPIRIDE 2 MG TABLET PO (07:58)
[2024-12-18] MEDS: ALLOPURINOL 100 MG TABLET PO (07:59)
[2024-12-18] MEDS: CLONAZEPAM 0.5 MG TABLET PO (07:59)
[2024-12-18] MEDS: OXYCODONE HCL 5 MG TABLET PO ×2 (07:59→13:11)
[2024-12-18] MEDS: FERROUS SULFATE 325 MG TABLET PO (07:59)
[2024-12-18] MEDS: CLOPIDOGREL BISULFATE 75 MG TABLET PO (07:59)
[2024-12-18] MEDS: TAMSULOSIN HCL 0.4 MG CAPSULE PO (07:59)
[2024-12-18] MEDS: METOPROLOL TARTRATE 50 MG TABLET PO (07:59)
[2024-12-18] MEDS: CALCIUM CARBONATE 600 MG/VITAMIN D3 400 IU TABLET 1 TAB PO (07:59)
[2024-12-18] MEDS: MAGNESIUM OXIDE 400 MG TABLET PO (07:59)
[2024-12-18] MEDS: ASPIRIN 81 MG TABLET.DR PO (07:59)
[2024-12-18] MEDS: IPRATROPIUM/ALBUTEROL SULFATE 3 ML AMPUL.NEB IH (08:18)
[2024-12-18] MEDS: BUDESONIDE 0.5 MG/2 ML AMPULE NEB IH (08:18)
[2024-12-18 08:19] VITALS: BP 134/84; PULSE 70; TEMP 36.7; O2SAT 95
[2024-12-18 09:07] VITALS: PULSE 71; O2SAT 97
--- NOTE | 2024-12-18 09:29 | PM.DS1 ---
DS: Providers Provider Date of admission: 12/15/24 12:13 Primary care physician: Jenaro Valadez DO Consults: 12/15/24 11:56 Consult to Podiatry Routine Consulting Provider: Fredy Elias Reason for consultation: Foot infection DS: Diagnosis Discharge Diagnosis (1) Sepsis: (2) Cellulitis: Qualifiers: Laterality: left Site of cellulitis: extremity Site of cellulitis of extremity: lower extremity Qualified Code(s): L03.116 - Cellulitis of left lower limb (3) Peripheral vascular disease: Plan As listed above and others that are not listed DS: Summary Hospital Course Hospital Course: Mr. Feldman is a 59-year-old gentleman who came in with pain and swelling in the left foot and was found to have the following: Sepsis present on admission secondary to right foot infection, probable abscess formation Sepsis protocol was followed including IV fluid infusion and cultures. Initiation of the appropriate antibiotic to cover MRSA, gram-negative, probable pseudomonas MRI to take a better look at the foot and see the extent of the infection, rule out abscess, rule out osteomyelitis. MRI does not show any abscess formation or osteomyelitis Podiatry consultation for the possible need of incision and drainage. Legal Consultant did not recommend any incision and drainage MICHELLE index showed significant peripheral vascular disease. No clinical evidence of acute arterial compromise. No pallor, no cyanosis. Patient will be discharged home on oral antibiotic and follow-up with podiatry to ensure complete recovery. Vascular intervention to be addressed by vascular team Peripheral vascular disease. Status post stenting of the iliac arteries Pain dorsalis pedis pulse. MICHELLE index showed significant for appropriate disease which is likely chronic No clinical evidence of acute arterial occlusion or compromise. No significant pain. No cyanosis. No change in temperature. Patient already has follow-up appointment with the vascular Dr. Wood in 2 weeks. Patient promised to follow-up with him. Tobacco addiction, 1 pack/day. Counseling and patient to quit smoking. NicoDerm patch Diabetes. Poor control. Started patient on Accu-Chek with sliding scale coverage. Check A1c. Added meal insulin. Continue Amaryl. I discontinued metformin and Januvia due to his renal failure I talked to patient about using Amaryl in a patient with kidney failure. It may not be ideal. Patient wants to discuss this further with his primary care doctor. Meanwhile I instructed him to take half a tablet of Amaryl twice a day instead of 1 tablet twice a day and to hold if the blood sugar is less than 130. I instructed patient to do the following Check your blood sugar 3 times a day before meals. Document these numbers on a blood glucose log and bring them with you to your follow-up appointment with your primary care doctor. Communicate with your primary care doctor or auto transmission specialist if your blood sugar is under 100 or above 300 on 2 consecutive checks. Communicate with your primary care doctor or auto transmission specialist if you have any questions about your diabetes medications. Signs of a low blood sugar include sweating, racing heart, dizziness and/or weakness. Check your blood sugar if you have any of the symptoms. Coronary artery disease. Previous coronary artery stenting. No active chest pain or angina. Check EKG, no ST elevation or depression CKD stage III borderline stage IV. 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 Chronic medical conditions not listed above, incidental findings seen on labs and imaging. These would need to be addressed. Could be addressed when time and condition are appropriate. Could be addressed in the outpatient setting by PCP collaboration with other needed outpatient providers. Patient has multiple complex medical issues as listed above and others that are not listed. All appear to be stable. I do not have any clear or strong clinical justification to extend inpatient hospitalization. Patient however will require close and frequent monitoring as well as additional work-up, investigation and therapeutic intervention that could take place from this point on post discharge. That is to prevent relapse, decompensation, rehospitalization and other medical implications. I instructed patient to ask her primary care doctor to obtain [facility] record entirely to address abnormalities seen on labs and imaging that I have and have not addressed during this hospitalization, follow-up on pending blood work, imaging and pathology is if available and to follow-up on needed medical care in the outpatient setting. Time Spent with Patient Time attestation: Total time spent providing and/or coordinating discharge services: Exam Constitutional Vital Signs, click to edit/add: Last Vital Signs Temp 98.0 F 12/18/24 08:19 Pulse 71 12/18/24 09:07 Resp 18 12/18/24 09:07 BP 134/84 12/18/24 08:19 Pulse Ox 97 12/18/24 09:07 O2 Del Method Room Air 12/18/24 09:07 DS: Data Data Completed and Pending Labs on day of discharge: Labs from last 24 hours 12/18/24 12/17/24 12/17/24 07:41 20:26 16:05 POC Glucose 129 H 176 H 251 H 12/17/24 11:06 POC Glucose 215 H Preliminary micro results at discharge 12/15/24 10:21 Blood Culture Result 2 - Preliminary Blood NO GROWTH AT 36-48 HOURS. FINAL TO FOLLOW. 12/15/24 10:14 Blood Culture Result 1 - Preliminary Blood NO GROWTH AT 36-48 HOURS. FINAL TO FOLLOW. Discharge Plan Discharge Disposition: Home, Self-Care Health Concerns: I may not have addressed or treated all of your medical illnesses or the abnormal blood work or imaging studies during this hospitalization. Please ask your primary care provider to obtain [facility] records entirely to follow up on all of the abnormal physical, laboratory, and imaging findings that I have not addressed. Check your blood sugar 3 times a day before meals. Document these numbers on a blood glucose log and bring them with you to your follow-up appointment with your primary care doctor. Communicate with your primary care doctor or auto transmission specialist if your blood sugar is under 100 or above 300 on 2 consecutive checks. Communicate with your primary care doctor or auto transmission specialist if you have any questions about your diabetes medications. Signs of a low blood sugar include sweating, racing heart, dizziness and/or weakness. Check your blood sugar if you have any of the symptoms. Please follow-up with your kidney specialist at [facility] Please follow-up with Dr. Montes as scheduled in 2 weeks Please follow-up with Dr. Elias within week Please return back to the emergency room or seek medical attention if your symptoms worsen or return. Discharging you from [facility] does not mean that your medical care ends here and now. You may still need additional monitoring, work up, investigation, and treatment plan to be handled from this point on by out patient providers including your primary care provider and specialists. For any medication question, please contact your retail pharmacist or your primary care provider. Thank you. Discharge Medications: New doxycycline monohydrate 100 mg tablet 100 mg PO BID 7 Days Qty: 14 0RF levofloxacin 250 mg tablet 250 mg PO DAILY Qty: 7 0RF Continued allopurinol 100 mg tablet 100 mg PO DAILY clonazepam 0.5 mg tablet 0.5 mg PO QAM magnesium oxide 400 mg (241.3 mg magnesium) tablet 400 mg PO DAILY calcium carbonate-vitamin D3 [Calcium 500 With D] 500 mg-10 mcg (400 unit) tablet 1 tab PO DAILY ferrous sulfate 325 mg (65 mg iron) tablet 325 mg PO BID metoprolol tartrate 25 mg tablet 50 mg PO BID Rx Instructions: HOLD IF SPB <125 OR HR <70 ropinirole 0.5 mg tablet 0.5 mg PO TID valsartan-hydrochlorothiazide 80-12.5 mg tablet 1 tab PO .QD (DME) OneStopWebe 2 Plus Sensor Device See Rx Instructions .ROUTE Rx Instructions: As directed Jardiance 10 mg tablet 10 mg PO DAILY nitroglycerin 0.4 mg tablet, sublingual 0.4 mg sublingual Q5M PRN (Reason: chest pain) omeprazole 40 mg capsule,delayed release(DR/EC) 40 mg PO DAILY pregabalin 200 mg capsule 200 mg PO TID tamsulosin 0.4 mg capsule 0.4 mg PO BID aspirin 81 mg tablet,delayed release (DR/EC) 81 mg PO DAILY atorvastatin 80 mg tablet 80 mg PO DAILY clopidogrel 75 mg tablet 75 mg PO DAILY albuterol sulfate [Proventil HFA] 90 mcg/actuation HFA aerosol inhaler 2 inh inhalation Q8H PRN (Reason: shortness of breath or wheezing) sildenafil 100 mg tablet 100 mg PO Q24H PRN (Reason: erectile dysfunction) Trulicity 0.75 mg/0.5 mL pen injector 0.75 mg subcut QWEEK Patient Comments: tuesdays amitriptyline 25 mg tablet 25 mg PO .qhs furosemide [Lasix] 40 mg tablet 40 mg PO DAILY budesonide-formoterol [Symbicort] 160-4.5 mcg/actuation HFA aerosol inhaler 2 inh inhalation BID Spiriva Respimat 2.5 mcg/actuation mist 2 puff INHALATION DAILY Changed glimepiride 2 mg tablet 1 mg PO BIDWM Qty: 0 0RF Rx Instructions: Do not take if your blood sugar drops below 130 Held hydroxyzine HCl 25 mg tablet 25 mg PO .QHS Hold Instructions: Resume on 12/25/24. Discontinued metformin 1,000 mg tablet 1,000 mg PO BID Januvia 100 mg tablet 100 mg PO DAILY Print Language: Bruneian Patient Instructions: Cellulitis (GEN) Forms: Portal Instructions Follow Up Appointments: Mon. 12/25 @ 1pm with [facility] [address] [place] [address] , [address] [place] [phone] Keep previously scheduled appt. with Dr. Forrester on 01/02. 01/30 @ 2:30pm with Dr. Valadez [phone] . 02/11 @ 2pm [address] Dr. Francis (Nephrology) [phone]
--- NOTE | 2024-12-18 09:37 | CM.NOTE ---
Rounds made with Dr. Ervin. Discharge to home today. Follow up with Dr. Pagan, Vascular, Dr. Montgomery, Nephrology, [facility] and Dr. Valadez. Discussed follow ups with Solomon and need to keep appointments. All questions answered.
--- NOTE | 2024-12-19 15:20 | CM.DCFOLLOWU ---
1st attempt 12/19/24, no answer
--- NOTE | 2024-12-25 14:42 | CM.DCFOLLOWU ---
2nd attempt 12/25/24, no answer
== END 2024-12-18 16:52 | disposition home or self-care (01) | DRG 720 ==
LOC: ER 11:14 → MS 12:18
PROVIDERS: Admitting Provider Internal Medicine; Emergency Provider Emergency Medicine; PCP Family Medicine; Visit Provider Internal Medicine
DX: A41.9 Sepsis, unspecified organism (principal); E11.51 Type 2 diabetes mellitus with diabetic peripheral angiopathy without gangrene; Z79.85 Long-term (current) use of injectable non-insulin antidiabetic drugs; Z79.84 Long term (current) use of oral hypoglycemic drugs; F17.210 Nicotine dependence, cigarettes, uncomplicated; E11.22 Type 2 diabetes mellitus with diabetic chronic kidney disease; Z95.5 Presence of coronary angioplasty implant and graft; N17.9 Acute kidney failure, unspecified; F32.A Depression, unspecified; L03.116 Cellulitis of left lower limb; Z89.511 Acquired absence of right leg below knee; J44.9 Chronic obstructive pulmonary disease, unspecified; E78.00 Pure hypercholesterolemia, unspecified; I25.2 Old myocardial infarction; N40.1 Benign prostatic hyperplasia with lower urinary tract symptoms; N13.8 Other obstructive and reflux uropathy; E11.628 Type 2 diabetes mellitus with other skin complications; I13.0 Hypertensive heart and chronic kidney disease with heart failure and stage 1 through stage 4 chronic kidney disease, or unspecified chronic kidney disease; I50.9 Heart failure, unspecified; K21.9 Gastro-esophageal reflux disease without esophagitis; G25.81 Restless legs syndrome; Z90.49 Acquired absence of other specified parts of digestive tract; I25.10 Atherosclerotic heart disease of native coronary artery without angina pectoris; N18.4 Chronic kidney disease, stage 4 (severe); E11.65 Type 2 diabetes mellitus with hyperglycemia
CPT/HCPCS: 36415; 73630; 73718; 80053; 81001; 82948; 83036; 83605; 85025; 85652; 86140; 87040; 93005; 93922; 94640; 96365; 96367; 99285; 99406; J0744; J1171; J1644; J2020; Q0162

== ENCOUNTER 2024-12-25 10:01 | Outpatient (OUT) | payer MEDICAID, SELFPAY | END 2024-12-25 10:02 | disposition home or self-care (01) | LOC: WC 10:02 | PROVIDERS: PCP Family Medicine; Visit Provider Physician Assistant | DX: E11.621 Type 2 diabetes mellitus with foot ulcer (principal); L97.422 Non-pressure chronic ulcer of left heel and midfoot with fat layer exposed | CPT/HCPCS: G0463 ==

== ENCOUNTER 2025-02-14 20:47 | Observation (INO) | payer OTHER, SELFPAY ==
--- OUTSIDE RECORDS SUMMARY | 2025-02-05 08:00 | XMS_ITS | Encounter Summary ---
Author Organization [facility] Address [address] [place] [address] Phone Care Team Providers Care Talent Sourcer Name Role Phone Jenaro Valadez DO Primary Care Provider [phone] Reason for Referral * CV Imaging (Routine) - Authorized Specialty Diagnoses / Procedures Referred By Contac t Referred To Contact Diagnoses Chest pain, unspecified type Procedures Nuclear Stress Test CHG MYOCARDIAL SPECT MULTIPLE STUDIES Iris Purvis MD [address] [facility] 2, [address] [address] Phone: tel: fax: [address] [address] Phone: tel: Referral ID Status Reason Start Date Expiration Date V isits Requested Visits Authorized [id number] Authorized 10/11/2024 10/11/2025 5 1 Reason for Visit * CV Imaging (Routine) - Authorized Specialty Diagnoses / Procedures Referred By Contac t Referred To Contact Diagnoses Chest pain, unspecified type Procedures Nuclear Stress Test CHG MYOCARDIAL SPECT MULTIPLE STUDIES Iris Purvis MD [address] [facility] 2, [address] [address] Phone: tel: fax: [address] [address] Phone: tel: Referral ID Status Reason Start Date Expiration Date V isits Requested Visits Authorized [id number] Authorized 10/11/2024 10/11/2025 5 1 Encounter Details Date Type Department Care Team (Latest Contact Info) Description 02/05/2025 8:00 AM EDT - 02/05/2025 8:04 AM EDT Hospital Encounter [facility] [address] [address] Chest pain, unspecified type Discharge Disposition: Home Social History Tobacco Use Types Packs/Day Years [...] on file documented as of this encounter Medications at Time of Discharge acetaminophen (Tylenol) 500 mg tablet Take by mouth every 8 hours if needed for mild pain (1 - 3). albuterol 90 mcg/actuation inhaler Inhale 2 puffs 2 times a day. amitriptyline (Elavil) 100 mg tablet Take 1 tablet (100 mg) by mouth once daily. 09/03/2023 ascorbic acid (Vitamin C) 500 mg tablet Take 1 tablet (500 mg) by mouth once daily. aspirin 81 mg EC tabletIndications :Hyperlipidemia, unspecified Take 1 tablet (81 mg) by mouth once daily. 90 tablet 3 12/26/2024 atorvastatin (Lipitor) 80 mg tablet Take 1 tablet (80 mg) by mouth once daily at bedtime. clopidogrel (Plavix) 75 mg tablet Take 1 tablet (75 mg) by mouth once daily. dulaglutide (Trulicity) 0.75 mg/0.5 mL pen injector Inject 0.75 mg under the skin 1 (one) time per week. DULoxetine (Cymbalta) [address] capsule Take 1 capsule (60 mg) by mouth once daily. Do not crush or chew. empagliflozin (Jardiance) 10 mg Take 1 tablet (10 mg) by mouth once daily. ferrous sulfate, 325 mg ferrous sulfate, tablet Take 1 tablet by mouth once daily. furosemide (Lasix) 40 mg tabletIndications :Localized edema Take 1 tablet (40 mg) by mouth once daily. 90 tablet 3 04/02/2024 glimepiride (Amaryl) 2 mg tablet Take 1 tablet (2 mg) by mouth 2 times a day. insulin lispro (HumaLOG) 100 unit/mL injection Inject under the skin. Take as directed per insulin instructions. magnesium oxide (Mag-Ox) 400 mg tabletIndications :Palpitations Take 1 tablet (400 mg) by mouth once daily. 12/26/2024 metFORMIN (Glucophage) 1,000 mg tablet Take 1 tablet (1,000 mg) by mouth every 12 hours. nitroglycerin (Nitrostat) 0.[address] under the tongue. 11/03/2021 omeprazole OTC (PriLOSEC OTC) 20 mg EC tablet Take 2 tablets (40 mg) by mouth 2 times a day before meals. Do not crush, chew, or split. pregabalin (Lyrica) 200 mg capsule Take 1 capsule (200 mg) by mouth 3 times a day. rOPINIRole (Requip) 1 mg tablet Take 1 tablet (1 mg) by mouth 3 times a day. sildenafil (Viagra) 100 mg tablet Take 1 tablet (100 mg) by mouth once daily as needed for erectile dysfunction. SITagliptin phosphate (Januvia) 100 mg tablet Take 1 tablet (100 mg) by mouth once daily. tamsulosin (Flomax) 0.4 mg 24 hr capsule Take 1 capsule (0.4 mg) by mouth 2 times a day. documented as of this encounter Plan of Treatment Upcoming Encounters Date Type Department Care Team (Late st Contact Info) Description 03/12/2025 3:50 PM EDT Office Visit [facility] [address] [address] Oumar Sandoval MD 703 [facility] 2, [facility] [address] [place] [address] documented as of this encounter Procedures Procedure Name Priority Date/Time Associated Diagnosis Comments STRESS TEST, REGADENOSON W MYOCARDIAL PERFUSION SPECT (MULTI STUDY) Routine 02/05/2025 10:18 AM EDT Chest pain, unspecified type documented in this encounter Results * STRESS TEST, REGADENOSON W MYOCARDIAL PERFUSION SPECT (MULTI STUDY) (02/05/2025 10:18 AM EDT) Anatomical Region Laterality Modality Nuclear Medicine 02/05/2025 6:06 PM EDT 02/05/2025 6:06 PM EDT Impressions 02/05/2025 6:05 PM EDT Normal Lexiscan Myoview cardiac perfusion stress test. No evidence of ischemia or myocardial infarction by perfusion imaging. Normal left ventricular systolic function, ejection fraction 61%. When compared to a study from 2022, no significant interval changes were seen. Signed by: Iris Purvis 02/05/2025 6:05 PM Dictation workstation: [id number] Narrative 02/05/2025 6:05 PM EDT Interpreted By: Iris Purvis and Giannuzzi Michael STUDY: MYOCARDIAL PERFUSION STRESS TEST WITH LEXISCAN Performing facility: [facility], [address] [place] [address], [address], [address] Provider: Iris Purvis MD, FACC PCP: Dr. Wm Valadez Supervising provider: Lui Schmidt DO, [facility] INDICATION: Signs/Symptoms: ,R07.9 Chest pain, unspecified HISTORY: Gender: M; Age: 59 y/o ; Height: HT 182.9 cm cm; Weight: WT 95.709 kg kg. Chest Pain; CAD; High Cholesterol; Diabetes; SOB; COPD; Quit smoking 4 years ago. Cardiac catheterization on 2017. PTCA on 2017. COMPARISON: Previous nuclear testing completed at [facility]. ACCESSION NUMBER(S): [id number] ORDERING CLINICIAN: IRIS PURVIS TECHNIQUE: ONE DAY protocol. Stress injection: Date:02-05-25, 34.5 mCi of Myoview IV 20 seconds after rapid injection of Lexiscan. Rest injection: Date: 02-05-25, 9.8 mCi of Myoview IV at rest. The patient had a rapid injection of 0.4 mg of Lexiscan IV over 10 seconds. Imaging was performed by gated tomographic technique. Reason for Lexiscan: BKA STRESS TEST DATA: Resting heart rate was 71 BPM. Resting blood pressure was 120/86 mmHg. Peak blood pressure was 108/78 mmHg. Peak heart rate was 80 BPM. Aminophylline given 50mg IV. TEST TERMINATED DUE TO: Protocol completed FINDINGS: STRESS TEST RESULTS: Resting electrocardiogram revealed sinus rhythm with first-degree AV block incomplete right bundle branch block. There were no significant ischemic ECG changes or dysrhythmias. The patient did not have chest pains/symptoms during procedure. There was a normal recovery phase. IMAGING RESULTS: Image quality was good. Rest and stress tomographic images were reviewed and revealed normal perfusion without evidence of ischemia, myocardial infarction, or left ventricular dilatation with stress. Overall left ventricular systolic function appeared to be normal without regional wall motion abnormalities. Ejection fraction was 61%. TID is 1.06 and is normal. There was no evidence of attenuation artifact. Procedure Note Iris Purvis MD - 02/05/2025 Interpreted By: Iris Purvis and Giannuzzi Michael STUDY: MYOCARDIAL PERFUSION STRESS TEST WITH LEXISCAN Performing facility: [facility], [address] [place] [address], [address], [address] Provider: Iris Purvis MD, [facility] PCP: Dr. Wm Valadez Supervising provider: Lui Schmidt DO, [facility] INDICATION: Signs/Symptoms: ,R07.9 Chest pain, unspecified HISTORY: Gender: M; Age: 59 y/o ; Height: HT 182.9 cm cm; Weight: WT 95.709 kg kg. Chest Pain; CAD; High Cholesterol; Diabetes; SOB; COPD; Quit smoking 4 years ago. Cardiac catheterization on 2017. PTCA on 2017. COMPARISON: Previous nuclear testing completed at [facility]. ACCESSION NUMBER(S): [id number] ORDERING CLINICIAN: IRIS PURVIS TECHNIQUE: ONE DAY protocol. Stress injection: Date:02-05-25, 34.5 mCi of Myoview IV 20 seconds after rapid injection of Lexiscan. Rest injection: Date: 02-05-25, 9.8 mCi of Myoview IV at rest. The patient had a rapid injection of 0.4 mg of Lexiscan IV over 10 seconds. Imaging was performed by gated tomographic technique. Reason for Lexiscan: BKA STRESS TEST DATA: Resting heart rate was 71 BPM. Resting blood pressure was 120/86 mmHg. Peak blood pressure was 108/78 mmHg. Peak heart rate was 80 BPM. Aminophylline given 50mg IV. TEST TERMINATED DUE TO: Protocol completed FINDINGS: STRESS TEST RESULTS: Resting electrocardiogram revealed sinus rhythm with first-degree AV block incomplete right bundle branch block. There were no significant ischemic ECG changes or dysrhythmias. The patient did not have chest pains/symptoms during procedure. There was a normal recovery phase. IMAGING RESULTS: Image quality was good. Rest and stress tomographic images were reviewed and revealed normal perfusion without evidence of ischemia, myocardial infarction, or left ventricular dilatation with stress. Overall left ventricular systolic function appeared to be normal without regional wall motion abnormalities. Ejection fraction was 61%. TID is 1.06 and is normal. There was no evidence of attenuation artifact. IMPRESSION: Normal Lexiscan Myoview cardiac perfusion stress test. No evidence of ischemia or myocardial infarction by perfusion imaging. Normal left ventricular systolic function, ejection fraction 61%. When compared to a study from 2022, no significant interval changes were seen. Signed by: Iris Purvis 02/05/2025 6:05 PM Dictation workstation: [id number] us Iris Purvis MD CV STRESS PROCEDURES Final R esult documented in this encounter Visit Diagnoses Diagnosis Chest pain, unspecified type documented in this encounter Administered Medications Inactive Administered Medications - up to 3 most recent administrations Medication Order MAR Action Action Date Dose Rate Site Tc-99m tetrofosmin (Myoview) injection 10 millicurie 10 millicurie, intravenous, Once in imaging, Starting on Mon02/05/25 at 0817, For 1 dose, Administer 45 to 90 minutes prior to imaging unless otherwise indicated. Given 02/05/2025 8:15 AM EDT 9.8 millicuries documented in this encounter Care Teams Talent Sourcer Relationship Specialty Start Date End Date Jenaro Valadez DO [facility] [place] [address] PCP - General Family Medicine 11/04/24 documented as of this encounter
--- OUTSIDE RECORDS SUMMARY | 2025-02-05 08:05 | XMS_ITS | Encounter Summary ---
Author Organization [facility] Address [address] [place] [address] Phone Care Team Providers Care Toe Former Name Role Phone Jenaro Valadez DO Primary Care Provider [phone] Reason for Visit * CV Imaging (Routine) - Authorized Specialty Diagnoses / Procedures Referred By Contac t Referred To Contact Diagnoses Chest pain, unspecified type Procedures Nuclear Stress Test CHG MYOCARDIAL SPECT MULTIPLE STUDIES Pascale Purvis MD [address] [facility] 2, [address] [place] [address] Phone: tel: fax: [place] [address] [place] [address] Phone: tel: Referral ID Status Reason Start Date Expiration Date V isits Requested Visits Authorized [id number] Authorized 10/11/2024 10/11/2025 5 1 Encounter Details Date Type Department Care Team (Latest Contact Info) Description 02/05/2025 8:05 AM EDT - 02/05/2025 11:59 PM EDT Hospital Encounter [facility] [address] [place] [address] Discharge Disposition: Home Social History Tobacco Use [...] on file documented as of this encounter Last Filed Vital Signs Vital Sign Reading Time Taken Comments Blood Pressure 120/86 02/05/2025 9:05 AM EDT Pulse 71 02/05/2025 9:05 AM EDT Temperature - - Respiratory Rate - - Oxygen Saturation - - Inhaled Oxygen Concentration - - Weight - - Height - - Body Mass Index - - documented in this encounter Medications at Time of Discharge [...] Description 03/12/2025 3:50 PM EDT Office Visit [place] [id number] [address] Oumar Sandoval MD 703 [facility] 2, [address] [address] documented as of this encounter Procedures Procedure Name Priority Date/Time Associated Diagnosis Comments STRESS TEST, REGADENOSON W MYOCARDIAL PERFUSION SPECT (MULTI STUDY) Routine 02/05/2025 10:18 AM EDT Chest pain, unspecified type documented in this encounter Visit Diagnoses Not on filedocumented in this encounter Administered Medications Inactive Administered Medications - up to 3 most recent administrations Medication Order MAR Action Action Date Dose Rate Site aminophylline injection 50 mg 50 mg, intravenous, Administer over 1 Minutes, Once, On Mon02/05/25 at 1000, For 1 dose New Bag 02/05/2025 9:38 AM EDT 50 mg regadenoson (Lexiscan) injection 0.4 mg 0.4 mg, intravenous, Once, On Mon02/05/25 at 0930, For 1 dose Given 02/05/2025 9:16 AM EDT 0.4 mg documented in this encounter Care Teams Toe Former Relationship Specialty Start Date End Date Jenaro Valadez DO [facility] [place] [address] PCP - General Family Medicine 11/04/24 documented as of this encounter
--- OUTSIDE RECORDS SUMMARY | 2025-02-05 08:05 | XMS_ITS | Encounter Summary ---
Author Organization [facility] Address [address] [place] [address] Phone Care Team Providers Care Pumpman Name Role Phone Jenaro Valadez DO Primary Care Provider [phone] Reason for Visit * CV Imaging (Routine) - Authorized Specialty Diagnoses / Procedures Referred By Contac t Referred To Contact Diagnoses Chest pain, unspecified type Procedures Nuclear Stress Test CHG MYOCARDIAL SPECT MULTIPLE STUDIES Iris Purvis MD [address] [facility] [address] [place] [address] Phone: tel: fax: [place] [address] [place] [address] Phone: tel: Referral ID Status Reason Start Date Expiration Date V isits Requested Visits Authorized [id number] Authorized 10/11/2024 10/11/2025 5 1 Encounter Details Date Type Department Care Team (Latest Contact Info) Description 02/05/2025 8:05 AM EDT - 02/05/2025 11:59 PM EDT Hospital Encounter [facility] [address] [place] [address] Discharge Disposition: Home Social History [...] Description 03/12/2025 3:50 PM EDT Office Visit [facility] [address] [facility] [address] [place] [phone] Oumar Sandoval MD [address] [facility] [address] [place] [address] documented as of this encounter Procedures Procedure [...] Iris Purvis 02/05/2025 6:05 PM Dictation workstation: [id number] Narrative 02/05/2025 6:05 PM EDT Interpreted By: Iris Purvis and Giannuzzi Michael STUDY: MYOCARDIAL PERFUSION STRESS TEST WITH LEXISCAN Performing facility: [facility], [address] [place] [address], [address], [place] [address] [facility] Provider: Iris Purvis MD, FACC PCP: Dr. Wm Valadez Supervising provider: Lui Schmidt DO, [facility] INDICATION: Signs/Symptoms: ,R07.9 Chest pain, unspecified HISTORY: Gender: M; Age: 59 y/o ; Height: HT 182.9 cm cm; Weight: WT 95.709 kg kg. Chest Pain; CAD; High Cholesterol; Diabetes; SOB; COPD; Quit smoking 4 years ago. Cardiac catheterization on 2017. PTCA on 2017. COMPARISON: Previous nuclear testing completed at [facility]. ACCESSION NUMBER(S): [id number] ORDERING CLINICIAN: IRIS PURVIS TECHNIQUE: ONE DAY [...] PERFUSION STRESS TEST WITH LEXISCAN Performing facility: [facility], [address] [facility], [address], [place], [place] [address] Provider: Iris Purvis MD, [facility] PCP: Dr. Wm Valadez Supervising provider: Lui Schmidt DO, [facility] INDICATION: Signs/Symptoms: ,R07.9 Chest pain, unspecified HISTORY: Gender: M; Age: 59 y/o ; Height: HT 182.9 cm cm; Weight: WT 95.709 kg kg. Chest Pain; CAD; High Cholesterol; Diabetes; SOB; COPD; Quit smoking 4 years ago. Cardiac catheterization on 2017. PTCA on 2017. COMPARISON: Previous nuclear testing completed at [facility]. ACCESSION NUMBER(S): [id number] ORDERING CLINICIAN: IRIS PURVIS TECHNIQUE: ONE DAY [...] Iris Purvis 02/05/2025 6:05 PM Dictation workstation: [id number] us Iris Purvis MD CV STRESS PROCEDURES Final R esult documented in this encounter Visit Diagnoses Not on filedocumented in this encounter Care Teams Pumpman Relationship Specialty Start Date End Date Jenaro Valadez DO Formerly named [facility] [place] [address] PCP - General Family Medicine 11/04/24 documented as of this encounter
--- OUTSIDE RECORDS SUMMARY | 2025-02-05 08:05 | XMS_ITS | Encounter Summary ---
Author Organization [facility] Address [address] [place] [address] Phone Care Team Providers Care Service Specialist Name Role Phone Jenaro Valadez DO Primary Care Provider [phone] Reason for Visit * CV Imaging (Routine) - Authorized Specialty Diagnoses / Procedures Referred By Contac t Referred To Contact Diagnoses Chest pain, unspecified type Procedures Nuclear Stress Test CHG MYOCARDIAL SPECT MULTIPLE STUDIES Pascale Purvis MD [address] [facility] [address] [place] [address] Phone: tel: fax: [place] [place] [address] Phone: tel: Referral ID Status Reason Start Date Expiration Date V isits Requested Visits Authorized [id number] Authorized 10/11/2024 10/11/2025 5 1 Encounter Details Date Type Department Care Team (Latest Contact Info) Description 02/05/2025 8:05 AM EDT - 02/05/2025 11:59 PM EDT Hospital Encounter [facility] [address] [place] [address] Discharge Disposition: Home Social History [...] Description 03/12/2025 3:50 PM EDT Office Visit [facility] [address] [phone] Oumar Sandoval MD [address] [place], [place] [address], [facility] [address] [place] [address] documented as of this encounter [...] Dose Rate Site Tc-99m tetrofosmin (Myoview) injection 30 millicurie 30 millicurie, intravenous, Once in imaging, Starting on Mon02/05/25 at 0927, For 1 dose, Administer 45 to 90 minutes prior to imaging unless otherwise indicated. Given 02/05/2025 9:17 AM EDT 34.5 millicuries documented in this encounter Care Teams Service Specialist Relationship Specialty Start Date End Date Jenaro Valadez DO [facility] [place] [address] PCP - General Family Medicine 11/04/24 documented as of this encounter
--- OUTSIDE RECORDS SUMMARY | 2025-02-05 08:05 | XMS_ITS | Encounter Summary ---
Author Organization [facility] Address [address] [place] [address] Phone Care Team Providers Care Divorce Attorney Name Role Phone Jenaro Valadez DO Primary Care Provider Reason for Visit * CV Imaging (Routine) - Authorized Specialty Diagnoses / Procedures Referred By Contac t Referred To Contact Diagnoses Chest pain, unspecified type Procedures Nuclear Stress Test CHG MYOCARDIAL SPECT MULTIPLE STUDIES Iris Purvis MD [address] [facility] [address] [place] [address] Phone: tel: fax: [place] [address] [place] [address] Phone: tel: Referral ID Status Reason Start Date Expiration Date V isits Requested Visits Authorized [id number] Authorized 10/11/2024 10/11/2025 5 1 Encounter Details Date Type Department Care Team (Latest Contact Info) Description 02/05/2025 8:05 AM EDT - 02/05/2025 11:59 PM EDT Hospital Encounter [facility] [address] [place] [address] Discharge Disposition: Home Social History [...] Description 03/12/2025 3:50 PM EDT Office Visit [facility] [address] [facility] [address] [place] [phone] Oumar Sandoval MD [address] [facility] [address] [place] [address] documented as of this encounter Procedures Procedure [...] Iris Purvis 02/05/2025 6:05 PM Dictation workstation: [id number] Narrative 02/05/2025 6:05 PM EDT Interpreted By: Iris Purvis and Giannuzzi Michael STUDY: MYOCARDIAL PERFUSION STRESS TEST WITH LEXISCAN Performing facility: [facility], [address] [place] [address], [address], [place] [address] [facility] Provider: Iris Purvis MD, FACC PCP: Dr. Wm Valadez Supervising provider: Lui Schmidt DO, [facility] INDICATION: Signs/Symptoms: ,R07.9 Chest pain, unspecified HISTORY: Gender: M; Age: 59 y/o ; Height: HT 182.9 cm cm; Weight: WT 95.709 kg kg. Chest Pain; CAD; High Cholesterol; Diabetes; SOB; COPD; Quit smoking 4 years ago. Cardiac catheterization on 2017. PTCA on 2017. COMPARISON: Previous nuclear testing completed at [facility]. ACCESSION NUMBER(S): [id number] ORDERING CLINICIAN: IRIS PURVIS TECHNIQUE: ONE DAY [...] evidence of attenuation artifact. Procedure Note Iris Pruvis MD - 02/05/2025 Interpreted By: Iris Purvis and Giannuzzi Michael STUDY: MYOCARDIAL PERFUSION STRESS TEST WITH LEXISCAN Performing facility: [facility], [address] [facility], [address], [place], [place] [address] Provider: Iris Purvis MD, [facility] PCP: Dr. Wm Valadez Supervising provider: Lui Schmidt DO, [facility] INDICATION: Signs/Symptoms: ,R07.9 Chest pain, unspecified HISTORY: Gender: M; Age: 59 y/o ; Height: HT 182.9 cm cm; Weight: WT 95.709 kg kg. Chest Pain; CAD; High Cholesterol; Diabetes; SOB; COPD; Quit smoking 4 years ago. Cardiac catheterization on 2017. PTCA on 2017. COMPARISON: Previous nuclear testing completed at [facility]. ACCESSION NUMBER(S): [id number] ORDERING CLINICIAN: IRIS PURVIS TECHNIQUE: ONE DAY [...] Iris Purvis 02/05/2025 6:05 PM Dictation workstation: [id number] us Iris Purvis MD CV STRESS PROCEDURES Final R esult documented in this encounter Visit Diagnoses Not on filedocumented in this encounter Care Teams Divorce Attorney Relationship Specialty Start Date End Date Jenaro Valadez DO [facility] [place] [address] PCP - General Family Medicine 11/04/24 documented as of this encounter
[2025-02-14] VITALS (25 sets, daily range): BP systolic 101–139; BP diastolic 62–89; PULSE 75–92; TEMP 36.4; O2SAT 92–97; BMI 27.1
--- NOTE | 2025-02-14 20:52 | XR_ITS ---
The [place] [id number] Patient Name: MYRA FELIPE MRN: [id number] date: 1965 Sex: M Assigned Patient Location: ED.MAIN Current Patient Location: ED.MAIN Accession/Order Number: [id number] Exam Date: 02/14/2025 21:10 Report Date: 02/14/2025 21:28 At the request of: DALTON TORRES MD Procedure: XR chest 1V PA CHEST: CLINICAL HISTORY: chest pain COMPARISON: 12/30/2023 The heart is normal in size. The lungs are clear. The pulmonary vasculature is normal. Mediastinum and hilar regions are unremarkable. No pleural effusions are seen. Visualized bones are intact. XR/XR chest 1V IMPRESSION: NEGATIVE CHEST. Impression dictated by: Omi Aldana M.D. 02/14/2025 9:28 PM Dictation Location: [place] [address] Electronically authenticated by: [id number] Y Date: 02/14/2025 21:28
--- NOTE | 2025-02-14 20:52 | ECG_ITS ---
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
--- NOTE | 2025-02-14 20:57 | ED.CHESTPAI1 ---
HPI - Chest Pain General Chief Complaint: Chest Pain Stated Complaint: chest pain Time Seen by Provider: 02/14/25 20:52 History of Present Illness HPI narrative: history of CKD and diabetes. 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 Took a couple of them and became sedated but also developed substernal chest pain that continues. Brought to ER by Squad. No dyspnea or complaint of abdominal pain. daily cigarette smoker Related Data Home Medications ?Medication ?Instructions ?Recorded ?Confirmed empagliflozin 10 mg tablet 10 mg PO DAILY 03/03/23 02/15/25 (Jardiance) nitroglycerin 0.4 mg sublingual 0.4 mg sublingual Q5M PRN chest 03/03/23 12/15/24 tablet pain omeprazole 40 mg capsule,delayed 40 mg PO DAILY 03/03/23 02/15/25 release pregabalin 200 mg capsule 200 mg PO TID 03/03/23 02/15/25 atorvastatin 80 mg tablet 80 mg PO DAILY 12/09/23 02/15/25 clopidogrel 75 mg tablet 75 mg PO DAILY 12/09/23 02/15/25 dulaglutide 0.75 mg/0.5 mL 0.75 mg subcut QWEEK 12/09/23 02/15/25 subcutaneous pen injector (Trulicity) tamsulosin 0.4 mg capsule 0.4 mg PO BID 12/09/23 02/15/25 amitriptyline 25 mg tablet 25 mg PO .qhs 12/10/23 02/15/25 budesonide-formoterol HFA 160 2 inh inhalation BID 12/10/23 02/15/25 mcg-4.5 mcg/actuation aerosol inhaler (Symbicort) furosemide 40 mg tablet (Lasix) 40 mg PO DAILY 12/10/23 02/15/25 allopurinol 100 mg tablet 100 mg PO DAILY 12/15/24 02/15/25 blood-glucose sensor (FreeStyle 12/15/24 12/15/24 Jigar 2 Plus Sensor device) calcium 500 mg (as 1 tab PO DAILY 12/15/24 02/15/25 carbonate)-vitamin D3 10 mcg (400 unit) tablet (Calcium 500 With D) clonazepam 0.5 mg tablet 0.5 mg PO QAM 12/15/24 02/15/25 ferrous sulfate 325 mg (65 mg 325 mg PO BID 12/15/24 02/15/25 iron) tablet hydroxyzine HCl 25 mg tablet 25 mg PO .QHS 12/15/24 02/15/25 magnesium oxide 400 mg (241.3 mg 400 mg PO DAILY 12/15/24 02/15/25 magnesium) tablet metoprolol tartrate 25 mg tablet 50 mg PO BID 12/15/24 02/15/25 ropinirole 0.5 mg tablet 0.5 mg PO TID 12/15/24 02/15/25 valsartan 80 1 tab PO .QD 12/15/24 02/15/25 mg-hydrochlorothiazide 12.5 mg tablet aspirin 81 mg tablet 81 mg PO DAILY 02/15/25 02/15/25 empagliflozin 10 mg tablet 10 mg PO DAILY 02/15/25 02/15/25 (Jardiance) glimepiride 2 mg tablet 1 mg PO BID 02/15/25 02/15/25 metformin 1,000 mg tablet 1,000 mg PO BID 02/15/25 02/15/25 Held on 02/16/25. Instructions: Resume on 02/19/25. Hold until 02/09 then take half a tablet twice a day Previous Rx's ?Medication ?Instructions ?Recorded sitagliptin phosphate 100 mg 50 mg (1/2 x 100 mg) PO DAILY #0 02/16/25 tablet (Januvia) tabs Allergies Allergy/AdvReac Type Severity Reaction Status Date / Time Penicillins Allergy Severe Swelling Verified 02/14/25 20:59 of Lip/Tongue/Throat bee venom protein (honey bee) Allergy Swelling Verified 02/14/25 20:59 of Lip/Tongue/Throat latex Allergy Rash Verified 02/14/25 20:59 Review of Systems ROS Status of ROS 10 or more systems reviewed and unremarkable except as noted in history and below [facility] Medical History Chest pain ?R07.9 - Chest pain, unspecified (ICD-10) Acute osteomyelitis of right foot ?M86.171 - Other acute osteomyelitis, right ankle and foot (ICD-10) Chronic ulcer of right foot ?L97.519 - Non-pressure chronic ulcer of other part of right foot with unspecified severity (ICD-10) Coronary artery disease ?I25.10 - Atherosclerotic heart disease of [place] coronary artery without angina pectoris (ICD-10) COPD (chronic obstructive pulmonary disease) ?J44.9 - Chronic obstructive pulmonary disease, unspecified (ICD-10) Hypertension ?I10 - Essential (primary) hypertension (ICD-10) Post-op bleeding Acute pain of right hip ?M25.551 - Pain in right hip (ICD-10) Foot osteomyelitis ?M86.9 - Osteomyelitis, unspecified (ICD-10) Ulcer of right foot with necrosis of bone ?L97.514 - Non-pressure chronic ulcer of other part of right foot with necrosis of bone (ICD-10) Hypocalcemia ?E83.51 - Hypocalcemia (ICD-10) Hypomagnesemia ?E83.42 - Hypomagnesemia (ICD-10) Sepsis ?A41.9 - Sepsis, unspecified organism (ICD-10) Wound of foot ?S91.309A - Unspecified open wound, unspecified foot, initial encounter (ICD-10) Abscess of right foot ?L02.611 - Cutaneous abscess of right foot (ICD-10) Anticoagulated ?Z79.01 - [facility] (current) use of anticoagulants (ICD-10) Diabetic infection of right foot ?E11.628 - Type 2 diabetes mellitus with other skin complications (ICD-10) ?L08.9 - Local infection of the skin and subcutaneous tissue, unspecified (ICD-10) Puncture wound of right foot ?S91.331A - Puncture wound without foreign body, right foot, initial encounter (ICD-10) Cellulitis of foot, right ?L03.115 - Cellulitis of right lower limb (ICD-10) Sepsis ?A41.9 - Sepsis, unspecified organism (ICD-10) CHF (congestive heart failure) ?I50.9 - Heart failure, unspecified (ICD-10) Migraine headache ?G43.909 - Migraine, unspecified, not intractable, without status migrainosus (ICD-10) Carpal tunnel syndrome ?G56.00 - Carpal tunnel syndrome, unspecified upper limb (ICD-10) Back pain ?M54.9 - Dorsalgia, unspecified (ICD-10) Arthritis ?M19.90 - Unspecified osteoarthritis, unspecified site (ICD-10) Restless leg ?G25.81 - Restless legs syndrome (ICD-10) GERD (gastroesophageal reflux disease) ?K21.9 - Gastro-esophageal reflux disease without esophagitis (ICD-10) High cholesterol ?E78.00 - Pure hypercholesterolemia, unspecified (ICD-10) Myocardial infarction ?I21.9 - Acute myocardial infarction, unspecified (ICD-10) Dementia ?F03.90 - Unspecified dementia, unspecified severity, without behavioral disturbance, psychotic disturbance, mood disturbance, and anxiety (ICD-10) CKD stage 4 due to type 2 diabetes mellitus ?E11.22 - Type 2 diabetes mellitus with diabetic chronic kidney disease (ICD-10) ?N18.4 - Chronic kidney disease, stage 4 (severe) (ICD-10) Hyperlipidemia ?E78.5 - Hyperlipidemia, unspecified (ICD-10) Polyp of prostate with urinary obstruction ?N40.1 - Benign prostatic hyperplasia with lower urinary tract symptoms (ICD-10) ?N13.8 - Other obstructive and reflux uropathy (ICD-10) Femoral artery stenosis ?I70.209 - Unspecified atherosclerosis of [place] arteries of extremities, unspecified extremity (ICD-10) Glaucoma ?H40.9 - Unspecified glaucoma (ICD-10) Carpal tunnel syndrome, bilateral ?G56.03 - Carpal tunnel syndrome, bilateral upper limbs (ICD-10) Gout ?M10.9 - Gout, unspecified (ICD-10) Chronic kidney disease ?N18.9 - Chronic kidney disease, unspecified (ICD-10) Weakness ?R53.1 - Weakness (ICD-10) Surgical History H/O foot surgery (08/10/23) ?Z98.890 - Other specified postprocedural states (ICD-10) S/P TURP (04/13/23) ?Z90.79 - Acquired absence of other genital organ(s) (ICD-10) H/O foot surgery (08/05/23) ?Z98.890 - Other specified postprocedural states (ICD-10) History of heart artery stent ?Z95.5 - Presence of coronary angioplasty implant and graft (ICD-10) History of spinal surgery ?Z98.890 - Other specified postprocedural states (ICD-10) History of colonoscopy ?Z98.890 - Other specified postprocedural states (ICD-10) History of carpal tunnel release ?Z98.890 - Other specified postprocedural states (ICD-10) History of cataract extraction ?Z98.49 - Cataract extraction status, unspecified eye (ICD-10) History of appendectomy ?Z90.49 - Acquired absence of other specified parts of digestive tract (ICD-10) History of heart artery stent ?Z95.5 - Presence of coronary angioplasty implant and graft (ICD-10) Family History Mother Family history of CHF (congestive heart failure) Family history of diabetes mellitus Family history of hypertension Grandfather Family history of CHF (congestive heart failure) Family history of diabetes mellitus Family history of hypertension Family history of myocardial infarction Grandmother Family history of hypertension Social History (Updated 02/15/25 @ 06:06 by Kimberley Engle RN) Within the past year, how often did you have a drink containing alcohol: 4 or more times a week Within the past year, how many standard drinks containing alcohol did you have on a typical day: 1 or 2 Within the past year, how often did you have six or more drinks on one occasion: never Total score: 0 Score interpretation: Questions 2 and 3 are 0. It can be assumed that the patient's drinking is below the recommended limits. However, please confirm the accuracy of the patient's alcohol intake over the last few months. Smoking status: Current every day smoker What tobacco products do you use: cigarettes Cigarettes per day: 20 Years smoked: 42 Smoking pack-years: 42.00 Nicotine containing products detail: Approx 1 pack QOD Second hand tobacco smoke exposure: No Non-prescribed substance use: denies use and cannabis (any form) Previous occupational history: DISABLED Known occupational exposures/hazards: No Highest level of school completed/degree received: high school graduate Are you now , , , , never or living with a partner: In a typical week, how many times do you talk on the telephone with family, friends, or neighbors: once per week How often do you get together with friends or relatives: once per week How often do you attend yazidi or mormon services: never Do you belong to any clubs or organizations such as yazidi groups unions, fraternal or athletic groups, or school groups: no Total score: 1 Score interpretation: A score of less than or equal to 1 indicates the most socially isolated. Little interest or pleasure in doing things: not at all Feeling down, depressed, or hopeless: not at all Feel stressed/tense/nervous/anxious/difficulty sleeping: not at all Due to disability, difficulty making decisions: No Do you think of yourself as: straight/heterosexual Gender Identity: male Exam Constitutional Vital Signs, click to edit/add: Last Vital Signs Temp 97.4 F L 02/16/25 07:44 Pulse 57 L 02/16/25 07:59 Resp 18 02/16/25 07:50 BP 143/84 H 02/16/25 07:44 Pulse Ox 92 L 02/16/25 07:44 O2 Del Method Room Air 02/16/25 07:44 O2 Flow Rate 2 02/15/25 12:00 Other: appears sedated but is answering questions appropriately HENMT Common normals: normocephalic and head/scalp atraumatic Eye Common normals: EOMs intact bilaterally and conjunctivae normal Chest Other: mild tenderness sternum Respiratory Common normals: normal respiratory effort, no retractions, no use of accessory muscles and clear to auscultation bilaterally Cardio Common normals: regular rate, regular rhythm, S1 normal heart sound and S2 normal heart sound GI Common normals: Normal to inspection, nondistended, normoactive bowel sounds present and soft to palpation Other: mild LLQ tenderness. No guarding Extremity Other: right BKA. stump appears normal edema left ankle and foot Neuro Common normals: oriented x3, CN's II-XII intact bilaterally and moves all extremities Psych Appearance: grossly normal Course Course Hospital Course: Mr. Feldman is a 59-year-old gentleman who took few marijuana laced Gummies. He was brought to the emergency room after he subsequently lost his balance trying to sit in a wheelchair and fell to the ground. In the emergency room the patient started having chest pain prompting the decision to admit him under observation. Chest pain, anterior, reported to be pleuritic yesterday in the emergency room department. Patient was chest pain free yesterday morning and this morning. Patient denies any shortness of breath. Saturation 92% on room air D-dimer is positive. The plan was to proceed with a VQ scan. Unfortunately the patient started having worsening chest pain last evening. EKG did not show any ST ovation or depression. Follow-up troponin all came back negative despite the patient having renal failure making the possibility of acute [place] very unlikely. His pain did not respond to nitroglycerin in the emergency room department. My suspicion was that patient either has PE or aortic dissection. VQ scan was canceled and CTA was ordered to rule out aortic dissection and PE. Patient was premedicated with normal saline infusion 500 mL bolus followed by 200 mL an hour for 1 L Patient had CTA which came back negative for dissection, PE or pneumonia or any other chest abnormalities other than pulmonary nodules. LFTs normal. Patient is chest pain-free today. Patient will be discharged home to follow-up with his PCP and his block piler at [facility]. Patient is already on dual antiplatelet therapy, statin and beta-lamont Patient did describe this pain as burning at time. Could be reflux disease. Patient is on PPI. May need to be referred to GI as well. Pulmonary nodule seen on current CT. Similar size compared to a CAT scan that was completed in October 2021 as per radiologist. Patient is to follow-up with her PCP regarding this. I would assume that the nodules are benign if they have been stable and similar in size for the last 3 years Diabetes, poor control. Resume preadmission home medications. Start patient on sliding scale. Patient is to hold metformin for the next 48 hours Peripheral vascular disease. Previous stenting of the iliac arteries. No acute arterial compromise. Continue dual antiplatelet therapy CAD. No active chest pain at this time. Troponin is negative. EKG no ST elevation or depression. Continue dual antiplatelet therapy as well as a beta-lamont Tobacco addiction Counseling and education to quit smoking. I suspect the patient has COPD. CKD stage III borderline stage IV. At baseline at this time prohibiting to proceed with the CT of the chest potentially risking ROEL. Continue gentle diuresis to keep him in euvolemic state Hypertension, fair control. Chronic medical conditions not listed above, incidental findings seen on labs and imaging. These would need to be addressed. Could be addressed when time and condition are appropriate. Could be addressed in the outpatient setting by PCP collaboration with other needed outpatient providers. Patient has multiple complex medical issues as listed above and others that are not listed. All appear to be stable. I do not have any clear or strong clinical justification to extend inpatient hospitalization. Patient however will require close and frequent monitoring as well as additional work-up, investigation and therapeutic intervention that could take place from this point on post discharge. That is to prevent relapse, decompensation, rehospitalization and other medical implications. I instructed patient to ask her primary care doctor to obtain [facility] record entirely to address abnormalities seen on labs and imaging that I have and have not addressed during this hospitalization, follow-up on pending blood work, imaging and pathology is if available and to follow-up on needed medical care in the outpatient setting. Vital Signs Vital signs: Vital Signs Pulse Rate 81 02/14/25 20:52 Respiratory Rate 19 02/14/25 20:52 Temperature 97.4 F L 02/16/25 07:44 Pulse Rate 57 L 02/16/25 07:59 Respiratory Rate 18 02/16/25 07:50 Blood Pressure 143/84 H 02/16/25 07:44 Pulse Oximetry 92 L 02/16/25 07:44 Oxygen Delivery Method Room Air 02/16/25 07:44 Oxygen Delivery Flow Rate 2 02/15/25 12:00 MDM - Chest Pain MDM Narrative Medical decision making narrative: patient multiple risk factors for CAD including CKD, DM and daily cigarette smoker. also has PAD and pain of his left foot. Ate 3 marijuana gummies tonight. Became sedated but also developed chest pain and brought to the ER by squad. D-dimer is positive but not candidate for CTA chest due to decreased GFR. GI cocktail given for pain without much relief. NTG SL ordered NTG did not provide much relief. He has pleuritic chest pain, chest wall tenderness and elevated D-dimer. discussed with hospitalist who requested CT brain before starting heparin. CT brain and cxray are clear. heparin bolus and drip ordered Lab Data Labs: Lab Results 02/14/25 02/15/25 Range/Units 21:00 00:01 WBC 8.2 (4.0-11.0) 10^3/uL RBC 5.81 (4.70-6.10) 10^6/uL Hgb 17.5 (14.0-18.0) g/dL Hct 50.3 (42.0-54.0) % MCV 86.6 (80.0-94.0) fL MCH 30.1 (25.9-34.0) pg MCHC 34.8 (29.9-35.2) g/dL RDW 14.2 (11.0-15.0) % Plt Count 132 L (150-450) 10^3/uL MPV 12.2 (9.5-13.5) fL Neut % (Auto) 73.0 (43.0-75.0) % Lymph % (Auto) 15.0 L (20.5-60.0) % [place] % (Auto) 8.0 (1.7-12.0) % Eos % (Auto) 2.5 (0.9-7.0) % Baso % (Auto) 1.0 (0.2-2.0) % Neut # (Auto) 6.0 (1.4-6.5) 10^3/uL Lymph # (Auto) 1.2 (1.2-3.8) 10^3/uL [place] # (Auto) 0.7 (0.3-0.8) 10^3/uL Eos # (Auto) 0.2 (0.0-0.7) 10^3/uL Baso # (Auto) 0.1 (0.0-0.1) 10^3/uL Abs Immat Gran (auto) 0.04 H (0.00-0.03) 10^3/uL Imm/Tot Granulo (auto) 0.5 (0.0-0.5) % APTT 25.9 (22.3-36.2) sec D-Dimer 0.71 H* (<=0.59) mg/L FEU Sodium 139 (136-145) mmol/L Potassium 4.0 (3.5-5.1) mmol/L Chloride 101 (98-107) mmol/L Carbon Dioxide 25.8 (21.0-32.0) mmol/L Anion Gap 16.2 BUN 23.0 H (7.0-18.0) mg/dL Creatinine 2.00 H (0.70-1.30) mg/dL Est GFR ( Amer) 42 L (>=60 mL/min/1.73m^2) Est GFR (Non-Af Amer) 34 L (>=60 mL/min/1.73m^2) BUN/Creatinine Ratio 11.5 Glucose 252 H (74-106) mg/dL Calcium 9.1 (8.5-10.1) mg/dL Troponin I High Sens 6.2 (4.0-76.1) pg/mL POC Glucose 267 H (74-106) mg/dL Imaging Data Chest x-ray: Radiologist's impression: ITS Impressions Chest X-Ray 02/14/25 20:52 IMPRESSION: NEGATIVE CHEST. Impression dictated by: Omi Aldana M.D. 02/14/2025 9:28 PM Dictation Location: [facility] Electronically authenticated by: [id number] Y Date: 02/14/2025 21:[address] 02/14/25 23:30 IMPRESSION: NO ACUTE INTRACRANIAL ABNORMALITY. Impression dictated by: Omi Aldana M.D. 02/15/2025 12:01 AM Dictation Location: [facility] Electronically authenticated by: [id number] Y Date: 02/15/2025 00:01 Discharge Plan Discharge Chief Complaint: Chest Pain Clinical Impression: Chest pain, pleuritic, D-dimer, elevated Patient Disposition: Admitted as Observation Discharge Date/Time: 02/15/25 01:58
--- OUTSIDE RECORDS SUMMARY | 2025-02-14 21:02 | XMS_ITS | Encounter Summary ---
Author Organization [facility] Address [address] [place] [address] Phone Care Team Providers Care Supervisor Livestock Yard Name Role Phone Jenaro Valadez DO Primary Care Provider [phone] Jenaro Valadez DO Unavailable Namita Mercer LPN Unavailable Jenaro Valadez DO Primary Care Provider [phone] Encounter Details Date Type Department Care Team (Late st Contact Info) Description 02/11/2021 Orders Only [facility] [address] [place] [address] Conversion, Onbase Social History Tobacco Use Types [...] Description 03/12/2025 3:50 PM EDT Office Visit [facility] [address] [facility] [address] [place] [address] Oumar Sandoval MD [address] [facility] [address] [place] [address] Scheduled Orders Name Type Priority Associated Diagnoses Orde r Schedule OUTSIDE LAB SCAN Lab Ordered: 02/11/2021 OUTSIDE LAB SCAN Lab Ordered: 02/11/2021 documented as of this encounter Visit Diagnoses Not on filedocumented in this encounter Care Teams Supervisor Livestock Yard Relationship Specialty Start Date End Date Jenaro Valadez DO PCP - General 04/17/19 11/03/24 Jenaro Valadez DO [address] [place] [address] PCP - Talha BRITTON PCP 06/05/2110/02 Jenaro Valadez DO [address] [place], [place] [id number] PCP - General Family Medicine 11/04/24 Namita Mercer, GÉNESIS Soaking Tank WorkerGenerator Operator 12/25/23 02/22/24 documented as of this encounter
--- OUTSIDE RECORDS SUMMARY | 2025-02-14 21:02 | XMS_ITS | Encounter Summary ---
Author Organization [facility] Address [address] [place] [address] Phone Care Team Providers Care Geospatial Scientist Name Role Phone Jenaro Valadez DO Primary Care Provider [phone] Namita Mercer FUNCTIONAL ARCHITECT Unavailable Jenaro Valadez DO Primary Care Provider [phone] Encounter Details Date Type Department Care Team (Late st Contact Info) Description 01/05/2023 Patient Risk Score ACO Care Management [address] [place] [address] Social History Tobacco Use Types [...] Description 03/12/2025 3:50 PM EDT Office Visit [facility] [address] [facility] [address] [place] [address] Oumar Sandoval MD [address] [facility] [address] [place] [address] documented as of this encounter Visit Diagnoses Not on filedocumented in this encounter Care Teams Geospatial Scientist Relationship Specialty Start Date End Date Jenaro Valadez DO PCP - General 04/17/19 11/03/24 Jenaro Valadez DO [address] [place] [address] PCP - General Family Medicine 11/04/24 Namita Mercer, FUNCTIONAL ARCHITECT Data Virtualization ConsultantRiprap Placing Supervisor 12/25/23 02/22/24 documented as of this encounter
--- OUTSIDE RECORDS SUMMARY | 2025-02-14 21:02 | XMS_ITS | Encounter Summary ---
Author Organization [facility] Address [address] [place] [address] Phone Care Team Providers Care Ham Stringer Name Role Phone Jenaro Valadez DO Primary Care Provider [phone] Namita Mercer CERAMIC ENGINEER Unavailable [phone] Jenaro Valadez DO Primary Care Provider [phone] Encounter Details Date Type Department Care Team (Late st Contact Info) Description 02/15/2023 Scanned Document [facility] [address] [place] [address] Conversion, Onbase Social History Tobacco Use Types [...] Description 03/12/2025 3:50 PM EDT Office Visit [facility] [address] [facility] [address] [place] [address] Oumar Sandoval MD [address] [facility] [address] [place] [address] documented as of this encounter Visit Diagnoses Not on filedocumented in this encounter Care Teams Ham Stringer Relationship Specialty Start Date End Date Jenaro Valadez DO PCP - General 04/17/19 11/03/24 Jenaro Valadez DO [address] [place] [address] PCP - General Family Medicine 11/04/24 Namita Mercer, CERAMIC ENGINEER Exchange Trouble ShooterCivil Defense Director 12/25/23 02/22/24 documented as of this encounter
--- OUTSIDE RECORDS SUMMARY | 2025-02-14 21:02 | XMS_ITS | Encounter Summary ---
Author Organization [facility] Address [address] [place] [address] Phone Care Team Providers Care Chief Supply Chain Officer Name Role Phone Jenaro Valadez DO Primary Care Provider [phone] Jenaro Valadez DO Unavailable Namita Mercer LPN Unavailable Jenaro Valadez DO Primary Care Provider [phone] Encounter Details Date Type Department Care Team (Late st Contact Info) Description 10/19/2021 Orders Only [facility] [address] [place] [address] Conversion, Onbase Social History Tobacco Use Types [...] Description 03/12/2025 3:50 PM EDT Office Visit [facility] [address] [facility] [address] [place] [address] Oumar Sandoval MD [address] [facility] [address] [place] [address] Scheduled Orders Name Type Priority Associated Diagnoses Orde r Schedule OUTSIDE LAB SCAN Lab Ordered: 10/19/2021 documented as of this encounter Visit Diagnoses Not on filedocumented in this encounter Care Teams Chief Supply Chain Officer Relationship Specialty Start Date End Date Jenaro Valadez DO PCP - General 04/17/19 11/03/24 Jenaro Valadez DO [address] [place] [address] PCP - Talha BRITTON PCP 06/05/2110/02 Jenaro Valadez DO [address] [place] [address] PCP - General Family Medicine 11/04/24 Namita Mercer, FURNACE TENDER Application IntegratorClinical Appeals Auditor 12/25/23 02/22/24 documented as of this encounter
--- OUTSIDE RECORDS SUMMARY | 2025-02-14 21:02 | XMS_ITS | Encounter Summary ---
Author Organization [facility] Address [address] [place] [address] Care Team Providers Care Scrap Preparation Supervisor Name Role Phone Jenaro Valadez DO Unavailable Jenaro Valadez DO Primary Care Provider [phone] Encounter Details Date Type Department Care Team (Late st Contact Info) Description 11/02/2023 Clinisync Result Encounter [facility] External Department Unsolicited Padmini Montes MD [address], [place] [id number] Social History Tobacco Use Types Packs/Day Years [...] EDT Narrative 11/02/2023 9:56 AM EDT The [facility] [address] [place] [address] CT Scan Report Signed Patient: MYRA FELDMAN Sr. MR#: [id number] : 1965 Acct:[id number] Age/Sex: 58 / M ADM Date: 11/02/23 Loc: CT Attending Dr: Padmini Montes M.D. Ordering Physician: Padmini Montes M.D. Date of Service: 11/02/23 Procedure(s): CT angio abd aorta runoff Accession Number(s): [id number] cc: Jenaro Valadez D.O. [place] [id number] Patient Name: MYRA FELDMAN MRN: [facility]:[id number] date: 1965 Sex: M Assigned Patient Location: CT Current Patient Location: CT Accession/Order Number: [id number] Exam Date: 11/02/2023 08:38 Report Date: 11/02/2023 [...] Signed By: 11/02/23 0956 DD/ 0954 TD/TT: Computer Networking Instructor: Procedure Note Radiology, Radiologist, MD - 11/02/2023 [place] [address] CT Scan Report Signed Patient: MYRA FELDMAN SrMaryMR#: [id number] : 1965Acct:[id number] Age/Sex: 58 / MADM Date: 11/02/23 Loc: CT Attending Dr: Padmini Montes M.D. Ordering Physician: Padmini Montes M.D. Date of Service: 11/02/23 Procedure(s): CT angio abd aorta runoff Accession Number(s): [id number] cc: Jenaro Valadez D.O. The [place] [id number] Patient Name: MYRA FELDMAN MRN: [id number]:[id number] date: 1965 Sex: M Assigned Patient Location: CT Current Patient Location: CT Accession/Order Number: [id number] Exam Date: 11/02/2023 08:38 Report Date: 11/02/2023 [...] Hodges M.D. Signed By:11/02/23 0956 DD/ TD/TT: Computer Networking Instructor: Padmini Montes MD IMG XR PROCEDURES Final Resu lt documented in this encounter Visit Diagnoses Not on filedocumented in this encounter Care Teams Scrap Preparation Supervisor Relationship Specialty Start Date End Date Jenaro Valadez DO PCP - External PCP 03/05/23 Jenaro Valadez DO PCP - General 03/12/24 documented as of this encounter
--- OUTSIDE RECORDS SUMMARY | 2025-02-14 21:02 | XMS_ITS | Encounter Summary ---
Author Organization [facility] Address [address] [place] [address] Phone Care Team Providers Care Community Service Officer Name Role Phone Jenaro Valadez DO Primary Care Provider [phone] Namita Mercer SALES TEACHER Unavailable Jenaro Valadez DO Primary Care Provider [phone] Encounter Details Date Type Department Care Team (Late st Contact Info) Description 01/25/2023 Scanned Document [facility] [address] [place] [address] Conversion, Onbase Social History Tobacco Use Types [...] Description 03/12/2025 3:50 PM EDT Office Visit [facility] 703 [facility] [address] [place] [address] Oumar Sandoval MD 703 [facility] 2, [address] [place] [address] documented as of this encounter Procedures Procedure Name Priority Date/Time Associated Diagnosis Comments CARDIAC STRESS TEST 01/25/2023 documented in this encounter Results * CARDIAC STRESS TEST (01/25/2023) Narrative 01/25/2023 Ordered by an unspecified provider. us Onbase Conversion CV STRESS PROCEDURES Final Res ult documented in this encounter Visit Diagnoses Not on filedocumented in this encounter Care Teams Community Service Officer Relationship Specialty Start Date End Date Jenaro Valadez DO PCP - General 04/17/19 11/03/24 Jenaro Valadez DO [address] [place] [address] PCP - General Family Medicine 11/04/24 Namita Mercer, SALES TEACHER President North AmericaShearing Machine Operator 12/25/23 02/22/24 documented as of this encounter
--- OUTSIDE RECORDS SUMMARY | 2025-02-14 21:02 | XMS_ITS | Encounter Summary ---
Author Organization [facility] Address [address] [place] [address] Phone Care Team Providers Care Buffet Server Name Role Phone Jenaro Valadez DO Primary Care Provider [phone] Namita Mercer RETAIL PHARMACY MANAGER Unavailable [phone] Jenaro Valadez DO Primary Care Provider [phone] Encounter Details Date Type Department Care Team (Late st Contact Info) Description 12/21/2023 Scanned Document [facility] [address] [place] [address] Scanning, Generic Provider Social History Tobacco Use [...] Description 03/12/2025 3:50 PM EDT Office Visit [facility] 7[address] [facility] [address] [place] [address] Oumar Sandoval MD 703 [facility] 2, [address] [place] [address] documented as of this encounter Procedures Procedure Name Priority Date/Time Associated Diagnosis Comments OUTSIDE IMAGING SCAN 12/21/2023 documented in this encounter Results * OUTSIDE IMAGING SCAN (12/21/2023) Anatomical Region Laterality Modality Other Narrative 12/21/2023 Ordered by an unspecified provider. us Generic Provider Scanning OUTSIDE SCAN Final Result documented in this encounter Visit Diagnoses Not on filedocumented in this encounter Care Teams Buffet Server Relationship Specialty Start Date End Date Jenaro Valadez DO PCP - General 04/17/19 11/03/24 Jenaro Valadez DO [address] [place] [address] PCP - General Family Medicine 11/04/24 Namita Mercer, GÉNESIS Personnel Research ScientistHorticulture Supervisor 12/25/23 02/22/24 documented as of this encounter
--- OUTSIDE RECORDS SUMMARY | 2025-02-14 21:02 | XMS_ITS | Encounter Summary ---
Author Organization [facility] tem Address [id number] [address] [place] [address] Care Team Providers Care Order Processor Name Role Phone Unavailable Primary Care Provider Unavailabl e Encounter Details Date Type Department Care Team (Late st Contact Info) Description 11/14/2023 Orders Only [facility] 7E Acute [address] [place] [address] Mallorie Hammond RN Social History Tobacco Use Types Packs/Day Years Used Date Smoking Tobacco: Every Day Cigarettes 1 43.4 Started: 10/05/1981 Smokeless Tobacco: Never Alcohol Use Standard Drinks/Week Comments Not Currently 0 (1 standard drink = 0.6 oz pur e alcohol) [facility] Utilities Answer Date Recorded In the [...] Care Team (Late st Contact Info) Description 02/27/2025 10:50 AM EDT Office Visit [facility] [place] [address] [place] [address] Padmini Montes MD [address], [address] [address] documented as of this encounter Goals Goal [...]
--- OUTSIDE RECORDS SUMMARY | 2025-02-14 21:02 | XMS_ITS | Encounter Summary ---
Author Organization [facility] Address [address] [place] [address] Care Team Providers Care Lease Purchase Driver Name Role Phone Jenaro Valadez DO Unavailable Jenaro Valadez DO Primary Care Provider [phone] Encounter Details Date Type Department Care Team (Late st Contact Info) Description 09/30/2023 Clinisync Result Encounter [facility] External Department Unsolicited Chandrika Frye PA [address] [place] [address] [place] [address] Social History Tobacco Use Types Packs/Day Years [...] EDT us Chandrika BYRD CLIN[facility] Final Result CLINISYOK TB * (ABNORMAL) ALL LACTOSE TOLERANCE (09/30/2023 7:14 PM EDT) LACTATE/LACTIC ACID 3.1(HH) 0.4 - 2.0 mmol/L [facility] Comment: RESULTS CALLED TO Feli CORREA)@BY Marybel Hawkins MLT at 1956 09/30/2023 7:14 PM EDT 09/30/2023 7:17 PM EDT Narrative CLINISYNC - 09/30/2023 7:56 PM EDT us Chandrika BYRD CLINISYNC Final Result Performing Organization Address [facility] de Phone Number CLINISYOK TB * XR FOOT RT MIN 3V (09/30/2023 6:46 PM EDT) Anatomical Region Laterality Modality Other 09/30/2023 6:46 PM EDT Narrative 09/30/2023 6:48 [place] [address] XRay Report Signed Patient: MYRA FELDMAN . MR#: [id number] : 1965 Acct:[id number] Age/Sex: 58 / M ADM Date: 09/30/23 Loc: ICU 274-[address]: Truman Bryant M.D. Ordering Physician: Chandrika Frye Date of Service: 09/30/23 Procedure(s): XR foot RT min 3V Accession Number(s): [id number] cc: Chandrika Frye; Jenaro Valadez D.O. [place] [address] Patient Name: MYRA FELDMAN MRN: [id number] date: 1965 Sex: M Assigned Patient Location: ED.MAIN Current Patient Location: ICU Accession/Order Number: [id number] Exam Date: 09/30/2023 18:05 Report Date: 09/30/2023 [...] M.D. Signed By: 09/30/231847 DD/ 45 TD/TT: Parks Worker: Procedure Note Radiology, Radiologist, MD - 09/30/2023 [place] [address] XRay Report Signed Patient: MYRA FELDMAN Sr.MR#: [id number] : 1965Acct:[id number] Age/Sex: 58 / MADM Date: 09/30/23 Loc: ICU 274-[address]: Truman Bryant M.D. Ordering Physician: Chandrika Frye Date of Service: 09/30/23 Procedure(s): XR foot RT min 3V Accession Number(s): [id number] cc: Chandrika Frye; Jenaro Valadez D.O. The [place] [address] Patient Name: MYRA FELDMAN MRN: [id number] date: 1965 Sex: M Assigned Patient Location: ED.MAIN Current Patient Location: ICU Accession/Order Number: [id number] Exam Date: 09/30/2023 18:05 Report Date: 09/30/2023 [...] Earl M.D. Signed By:09/30/231847 DD/ 45 TD/TT: Parks Worker: Chandrika BYRD [facility] IMAGING Final Result documented in this encounter Visit Diagnoses Not on filedocumented in this encounter Care Teams Lease Purchase Driver Relationship Specialty Start Date End Date Jenaro Valadez DO PCP - External PCP 03/05/23 Jenaro Valadez DO PCP - General 03/12/24 documented as of this encounter
--- OUTSIDE RECORDS SUMMARY | 2025-02-14 21:02 | XMS_ITS | Encounter Summary ---
Author Organization [facility] Address [address] [place] [address] Phone Care Team Providers Care Webfocus Developer Name Role Phone Jenaro Valadez DO Primary Care Provider [phone] Jenaro Valadez DO Unavailable Namita Mercer LPN Unavailable Jenaro Valadez DO Primary Care Provider [phone] Encounter Details Date Type Department Care Team (Late st Contact Info) Description 09/27/2022 Orders Only [facility] [address] [place] [address] Conversion, Onbase Social History Tobacco Use Types [...] Description 03/12/2025 3:50 PM EDT Office Visit [facility] 703 [facility] [address] [place] [address] Oumar Sandoval MD 703 [facility] 2, [address] [place] [address] Scheduled Orders Name Type Priority Associated Diagnoses Orde r Schedule OUTSIDE LAB SCAN Lab Ordered: 09/27/2022 documented as of this encounter Visit Diagnoses Not on filedocumented in this encounter Care Teams Webfocus Developer Relationship Specialty Start Date End Date Jenaro Valadez DO PCP - General 04/17/19 11/03/24 Jenaro Valadez DO [address] [place] [address] PCP - Talha BRITTON PCP 06/05/2110/02 Jenaro Valadez DO [address] [place] [address] PCP - General Family Medicine 11/04/24 Namita Mercer, NO BAKE MOLDER Human Anatomy TeacherField Installation Technician 12/25/23 02/22/24 documented as of this encounter
--- OUTSIDE RECORDS SUMMARY | 2025-02-14 21:02 | XMS_ITS | Encounter Summary ---
Author Organization [facility] Address [address] [place] [address] Phone Care Team Providers Care Crystal Machining Coordinator Name Role Phone Jenaro Valadez DO Primary Care Provider [phone] Namita Mercer TURNING SANDER TENDER Unavailable [phone] Jenaro Valadez DO Primary Care Provider [phone] Encounter Details Date Type Department Care Team (Late st Contact Info) Description 12/23/2023 Scanned Document [facility] [address] [place] [address] Scanning, Generic Provider Social History Tobacco Use [...] Description 03/12/2025 3:50 PM EDT Office Visit [facility] 703 [facility] [address] [place] [address] Oumar Sandoval MD 703 [facility] 2, [address] [place] [address] documented as of this encounter Visit Diagnoses Not on filedocumented in this encounter Care Teams Crystal Machining Coordinator Relationship Specialty Start Date End Date Jenaro Valadez DO PCP - General 04/17/19 11/03/24 Jenaro Valadez DO [facility] [place] [address] PCP - General Family Medicine 11/04/24 Namita Mercer, GÉNESIS Server CashierChief Service Observer 12/25/23 02/22/24 documented as of this encounter
--- OUTSIDE RECORDS SUMMARY | 2025-02-14 21:02 | XMS_ITS | Encounter Summary ---
Author Organization [facility] Address [address] [place] [address] Care Team Providers Care Print Shop Stenographer Name Role Phone Jenaro Valadez DO Unavailable Jenaro Valadez DO Primary Care Provider [phone] Encounter Details Date Type Department Care Team (Late st Contact Info) Description 09/30/2023 Clinisync Result Encounter [facility] External Department Unsolicited Chandrika Castanon PA [address] [place] [address] Dr [address] [place] [phone] Social History Tobacco Use Types Packs/Day Years [...] EDT Narrative 10/01/2023 7:13 AM EDT The [facility] [address] [place] [address] Electrocardiograph Report Signed Patient: MYRA FELDMAN Sr. MR#: [id number] : 1965 Acct:[id number] Age/Sex: 58 / M ADM Date: 09/30/23 Loc: ICU 274-[address]: Flaquito Zaman M.D. Ordering Physician: Chandrika Castanon Date of Service: 09/30/23 Procedure(s): ECG 12 lead Accession Number(s): [id number] cc: [facility] Test Date: 2023-09-30 Pat Name: MYRA FELDMAN Department: Room: - Gender: Male Comprehensive Advisor: : 1965 Requested By: Jenaro Valadez Order Number: [id number] Reading MD: FLAQUITO ZAMAN Measurements Intervals [place] Rate: 114 P: 204 DE: 234 QRS: 84 QRSD: 92 T: 51 [...] Signed By: 10/01/23 0713 DD/ 1605 TD/TT: Diet Clerk: Procedure Note Radiology, Radiologist, MD - 10/01/2023 [place] [address] Electrocardiograph Report Signed Patient: MYRA FELDMAN SrMaryMR#: [id number] : 1965Acct:[id number] Age/Sex: 58 / MADM Date: 09/30/23 Loc: ICU 274-[address]: Flaquito Zaman M.D. Ordering Physician: Chandirka Castanon Date of Service: 09/30/23 Procedure(s): ECG 12 lead Accession Number(s): [id number] cc: The [facility] Test Date: 2023-09-30 Pat Name: MYRA FELDMAN Department: Room: - Gender: Male Comprehensive Advisor: : 1965 Requested By: Jenaro Valadez Order Number: [id number] Reading MD: FLAQUITO ZAMAN Measurements Intervals [place] Rate: 114 P: 204 DE: 234 QRS: 84 QRSD: 92 T: 51 [...] M.D. Signed By:10/01/23 0713 DD/ 1605 TD/TT: Diet Clerk: Chandrika BYRD [facility] IMAGING Final Result documented in this encounter Visit Diagnoses Not on filedocumented in this encounter Care Teams Print Shop Stenographer Relationship Specialty Start Date End Date Jenaro Valadez DO PCP - External PCP 03/05/23 Jenaro Valadez DO PCP - General 03/12/24 documented as of this encounter
--- OUTSIDE RECORDS SUMMARY | 2025-02-14 21:02 | XMS_ITS | Encounter Summary ---
Author Organization [facility] Address [address] [place] [address] Phone Care Team Providers Care Checkerer Hand Name Role Phone Jenaro Valadez DO Primary Care Provider [phone] Namita Mercer CUFF CUTTER Unavailable Jenaro Valadez DO Primary Care Provider [phone] Encounter Details Date Type Department Care Team (Late st Contact Info) Description 12/05/2022 Patient Risk Score ACO Care Management [address] [place] [address] Social History Tobacco Use Types [...] Visit [facility] 7[address] [facility] [address] [place] [address] Oumar Sandoval MD [address] [facility] [address] [place] [address] documented as of this encounter Visit Diagnoses Not on filedocumented in this encounter Care Teams Checkerer Hand Relationship Specialty Start Date End Date Jenaro Valadez DO PCP - General 04/17/19 11/03/24 Jenaro Valadez DO [address] [place] [address] PCP - General Family Medicine 11/04/24 Namita Mercer, CUFF CUTTER Line InspectorCar Loader 12/25/23 02/22/24 documented as of this encounter
--- OUTSIDE RECORDS SUMMARY | 2025-02-14 21:02 | XMS_ITS | Encounter Summary ---
Author Organization [facility] Address [address] [place] [address] Care Team Providers Care Deicer Inspector Electric Name Role Phone Jenaro Valadez DO Unavailable Jenaro Valadez DO Primary Care Provider [phone] Encounter Details Date Type Department Care Team (Late st Contact Info) Description 09/30/2023 Clinisync Result Encounter [facility] External Department Unsolicited Chandrika Frye PA [address] [place] [address] Dr [address] [place] [id number] Social History Tobacco Use Types Packs/Day Years [...] EDT Narrative 09/30/2023 6:41 PM EDT The [facility] [address] [place] [address] XRay Report Signed Patient: MYRA FELDMAN Sr. MR#: [id number] : 1965 Acct:[id number] Age/Sex: 58 / M ADM Date: 09/30/23 Loc: ICU 274-[address]: Truman Bryant M.D. Ordering Physician: Chandrika Frye Date of Service: 09/30/23 Procedure(s): XR chest 1V Accession Number(s): [id number] cc: Chandrika Frye; Jenaro Valadez D.O. The [place] [address] Patient Name: MYRA FELDMAN MRN: [facility]:[id number] date: 1965 Sex: M Assigned Patient Location: ED.MAIN Current Patient Location: ICU Accession/Order Number: [id number] Exam Date: 09/30/2023 18:05 Report Date: 09/30/2023 [...] Signed By: 09/30/23 1841 DD/ 1839 TD/TT: Hearing Screener: Procedure Note Radiology, Radiologist, MD - 09/30/2023 [place] [address] XRay Report Signed Patient: MYRA FELDMAN Sr.MR#: [id number] : 1965Acct:[id number] Age/Sex: 58 / MADM Date: 09/30/23 Loc: ICU 274-[address]: Truman Bryant M.D. Ordering Physician: Chandrika Frye Date of Service: 09/30/23 Procedure(s): XR chest 1V Accession Number(s): [id number] cc: Jenaro Hooper D.O. The [address] [address] Patient Name: MYRA FELDMAN MRN: [facility]:[id number] date: 1965 Sex: M Assigned Patient Location: ED.MAIN Current Patient Location: ICU Accession/Order Number: [id number] Exam Date: 09/30/2023 18:05 Report Date: 09/30/2023 [...] M.D. Signed By:09/30/23 1841 DD/ 1839 TD/TT: Hearing Screener: us Chandrika [facility]RD [facility] IMAGING Final Result documented in this encounter Visit Diagnoses Not on filedocumented in this encounter Care Teams Deicer Inspector Electric Relationship Specialty Start Date End Date Jenaro Valadez DO PCP - External PCP 03/05/23 Jenaro Valadez DO PCP - General 03/12/24 documented as of this encounter
--- OUTSIDE RECORDS SUMMARY | 2025-02-14 21:03 | XMS_ITS | Encounter Summary ---
Author Organization [facility] Address [id number] [address] [place] [address] Care Team Providers Care Receptionist Nurse Name Role Phone Unavailable Primary Care Provider Unavailabl e Encounter Details Date Type Department Care Team (Late st Contact Info) Description 12/20/2023 Orders Only [facility] [address] [place] [address] Baylee Chu CMA Social History Tobacco Use Types Packs/Day Years Used Date Smoking Tobacco: Every Day Cigarettes 1 43.4 Started: 10/05/1981 Smokeless Tobacco: Never Alcohol Use Standard Drinks/Week Comments Not Currently 0 (1 standard drink = 0.6 oz pur e alcohol) [facility] Utilities Answer Date Recorded In the past 12 months has e [employer], gas, oil, or water company threatened to [...] 02/27/2025 10:50 AM EDT Office Visit [facility] [place] [address] [place] [address] Padmini Montes MD [address], [address] [address] documented as of this encounter Goals Goal [...]
--- OUTSIDE RECORDS SUMMARY | 2025-02-14 21:03 | XMS_ITS | Encounter Summary ---
Author Organization [facility] Address [address] [place] [address] Phone Care Team Providers Care Court Clerk Name Role Phone Jenaro Valadez DO Primary Care Provider [phone] Jenaro Valadez DO Primary Care Provider [phone] Encounter Details Date Type Department Care Team (Late st Contact Info) Description 10/26/2024 Scanned Document [facility] [address] [place] [address] Scanning, Generic Provider Social History Tobacco Use [...] Description 03/12/2025 3:50 PM EDT Office Visit [facility] 703 [facility] [address] [place] [address] Oumar Sandoval MD 703 [facility] 2, [address] [place] [address] documented as of this encounter Visit Diagnoses Not on filedocumented in this encounter Care Teams Court Clerk Relationship Specialty Start Date End Date Jenaro Valadez DO PCP - General 04/17/19 11/03/24 Jenaro Valadez DO [facility] [place] [address] PCP - General Family Medicine 11/04/24 documented as of this encounter
--- OUTSIDE RECORDS SUMMARY | 2025-02-14 21:03 | XMS_ITS | Encounter Summary ---
Author Organization [facility] Address [address] [place] [address] Phone Care Team Providers Care Shelter Director Name Role Phone Jenaro Valadez DO Primary Care Provider [phone] Jenaro Valadez DO Primary Care Provider [phone] Encounter Details Date Type Department Care Team (Late st Contact Info) Description 10/30/2024 Scanned Document [facility] [address] [place] [address] Scanning, Generic Provider Social History Tobacco Use [...] Description 03/12/2025 3:50 PM EDT Office Visit [facility] 703 [facility] [address] [place] [address] Oumar Sandoval MD 703 [facility] 2, [address] [place] [address] documented as of this encounter Procedures Procedure Name Priority Date/Time Associated Diagnosis Comments OUTSIDE IMAGING SCAN 10/30/2024 documented in this encounter Results * OUTSIDE IMAGING SCAN (10/30/2024) Anatomical Region Laterality Modality Other Narrative 10/30/2024 Ordered by an unspecified provider. us Generic Provider Scanning OUTSIDE SCAN Final Result documented in this encounter Visit Diagnoses Not on filedocumented in this encounter Care Teams Shelter Director Relationship Specialty Start Date End Date Jenaro Valadez DO PCP - General 04/17/19 11/03/24 Jenaro Valadez DO [address] [place] [address] PCP - General Family Medicine 11/04/24 documented as of this encounter
--- OUTSIDE RECORDS SUMMARY | 2025-02-14 21:03 | XMS_ITS | Encounter Summary ---
Author Organization [facility] Address [address] [place] [address] Care Team Providers Care Travel Clerk Name Role Phone Jenaro Valadez DO Primary Care Provider [phone] Franklin Link DO Unavailable [phone] Jenaro Valadez DO Primary Care Provider [phone] Carlos A Bolanos Unavailable [phone] Carlos A Bolanos Unavailable [phone] Source Comments In the event this information is protected by the Federal Confidentiality of Alcohol and Drug AbusePatient Records regulations: The Federal rules restrict any use of the information to criminally investigate or prosecute any alcohol or drug abuse patient.[facility] Encounter Details Date Type Department Care Team (Late st Contact Info) Description 02/29/2016 Radiology Radiology [address] [address] [place] [id number] Sheri Mendez, (R) Social History Tobacco Use [...] on filedocumented in this encounter Care Teams Travel Clerk Relationship Specialty Start Date End Date Jenaro Valadez DO [facility] [place] [address] PCP - General Family Medicine 10/30/13 10/25/16 Jenaro Valadez DO [address] [place] [address] [place] [address] PCP - General Family Medicine 10/26/16 Franklin Link DO [address] [place] [address] Referring Orthopedics 10/26/16 Carlos A Bolanos [address] [place] [address] Primary Staff Physician Cardiology 08/21/18 Carlos A Bolanos [address] [place] [address] Primary Staff Physician Cardiology 08/21/18 documented as of this encounter
--- OUTSIDE RECORDS SUMMARY | 2025-02-14 21:03 | XMS_ITS | Encounter Summary ---
Author Organization [employer] Address [facility]-[id number] [address] [place] [address] Care Team Providers Care Preventive Maintenance Engineer Name Role Phone Unavailable Primary Care Provider Unavailabl e Encounter Details Date Type Department Care Team (Late st Contact Info) Description 01/26/2024 Telephone [facility] [address] [place] [address] Padmini Montes MD [address], [facility] [address] [place] [address] Social History Tobacco Use Types Packs/Day Years Used Date Smoking Tobacco: Every Day Cigarettes 1 43.4 Started: 10/05/1981 Smokeless Tobacco: Never Alcohol Use Standard Drinks/Week Comments Not Currently 0 (1 standard drink = 0.6 oz pur e alcohol) [facility] Utilities Answer Date Recorded In the past 12 months has e [employer], gas, oil, or water [employer] threatened to shut off services in your [...] in a prescription for Pain Medication to [facility] in [place] [phone] patient phone # * Telephone Encounter - Lay Vang LPN - 01/26/2024 2:06 PM EDT Pain medication was given on the day of sx for norco and it was a hand written prescription. Patients called to inform that she can not find norco at any of the [facility] locations. Carrier Operator recommendedshe call [facility] or another pharmacy outside of [facility] that way she can take the script to pharmacy. Patients is satisfied with plan. documented in this encounter Plan of Treatment Upcoming Encounters Date Type Department Care Team (Late st Contact Info) Description 02/27/2025 10:50 AM EDT Office Visit [facility] [place] [address] Padmini Montes MD [address], [address] [address] documented as of this encounter Goals Goal Patient Goal Type Associated Problems Recent Progress Patient-Stated? Author Patient is planning to transition back to SNF at discharge. General Yes Chandrika Quiñonez, GONZLAO Note: Evaluation of progress towards goal: Patient is planning to transition back to SNF at discharge. documented as of this encounter Visit Diagnoses Not on filedocumented in this encounter Additional Health Concerns Assessment Noted Time PHQ-9 Depression Total Score: 0 11/07/19 24 8:40 PM EDT documented as of this encounter
--- OUTSIDE RECORDS SUMMARY | 2025-02-14 21:03 | XMS_ITS | Encounter Summary ---
Author Organization [facility] Address [address] [place] [address] Phone Care Team Providers Care Senior Procurement Specialist Name Role Phone Jenaro Valadez DO Primary Care Provider [phone] Encounter Details Date Type Department Care Team (Late st Contact Info) Description 02/07/2025 Results Follow-Up [place] [address] [place] [address] Iris Purvis MD [address] [facility] [address], [address] [place] [address] Nuclear Stress Test Social History Tobacco Use Types Packs/Day Years [...] encounter Miscellaneous Notes * Telephone Encounter - Gema Obrien LPN - 02/07/2025 3:37 PM EDT Detailed message left on a.m. To call with any questions or concerns * Telephone Encounter - Gema Obrien LPN - 02/07/2025 3:37 PM EDT Result Communication Resulted Orders Nuclear Stress Test Narrative Interpreted By: Iris uPrvis and Giannuzzi Michael STUDY: MYOCARDIAL PERFUSION STRESS TEST WITH LEXISCAN Performing facility: [facility], [address] [place] [address], [address], [place] [address] [facility] Provider: Iris Purvis MD, FACC PCP: Dr. Wm Valadez Supervising provider: Lui Schmidt DO, [facility] INDICATION: Signs/Symptoms: ,R07.9 Chest pain, unspecified HISTORY: Gender: M; Age: 59 y/o ; Height: HT 182.9 cm cm; Weight: WT 95.709 kg kg. Chest Pain; CAD; High Cholesterol; Diabetes; SOB; COPD; Quit smoking 4 years ago. Cardiac catheterization on 2017. PTCA on 2017. COMPARISON: Previous nuclear testing completed at [facility]. ACCESSION NUMBER(S): [id number] ORDERING CLINICIAN: IRIS PURVIS TECHNIQUE: ONE DAY [...] There was no evidence of attenuation artifact. Impression Normal Lexiscan Myoview cardiac perfusion stress test. No evidence of ischemia or myocardial infarction by perfusion imaging. Normal left ventricular systolic function, ejection fraction 61%. When compared to a study from 2022, no significant interval changes were seen. Signed by: Iris Purvis 02/05/2025 6:05 PM Dictation workstation: [id number] 3:37 PM * Telephone Encounter - Gema Obrien LPN - 02/07/2025 3:37 PM EDT ----- Message from Iris Purvis sent at 02/07/2025 9:22 AM EDT ----- No new orders. Please call patient with result. Within normal limits. ----- Message ----- From: Interface, Radiology Results In Sent: 02/05/2025 6:06 PM EDT To: Iris Purvis MD * Result Encounter Note - Iris Purvis MD - 02/07/2025 9:22 AM EDT No new orders. Please call patient with result. Within normal limits. documented in this encounter Plan of Treatment Upcoming Encounters Date Type Department Care Team (Late st Contact Info) Description 03/12/2025 3:50 PM EDT Office Visit [facility] [address] [address] Oumar Sandoval MD 703 [facility] 2, [facility] [address] [place] [address] documented as of this encounter Visit Diagnoses Not on filedocumented in this encounter Care Teams Senior Procurement Specialist Relationship Specialty Start Date End Date Jenaro Valadez DO [address] [place] [address] PCP - General Family Medicine 11/04/24 documented as of this encounter
--- OUTSIDE RECORDS SUMMARY | 2025-02-14 21:03 | XMS_ITS | Clinical Summary ---
Author Organization [facility] Healthcare Address [address] [place] [address] Care Team Providers Care Joy Operator Helper Name Role Phone Jenaro Valadez DO Unavailable Jenaro Valadez DO Primary Care Provider [phone] Allergies Active Allergy Reactions Criticality Noted Date [...] skin every 30 (thirty) days. 4 Active C3NanoTouch Ultra Test test strip 1 strip by other route every morning before breakfast. 4 Active HYDROcodone-acet aminophen (Bagdad) 5-325 MG tablet 4 Active Insulin Lispro 100 UNIT/ML solution Inject under the skin. Take as directed per insulin instructions. Active isosorbide mononitrate ER (Imdur) 30 MG 24 hr tablet Take 1 tablet (30 mg total) by mouth daily. 4 Active Lancets (OneTouch Delica Plus [id number]) misc 4 Active loperamide (Imodium A-D) 2 [...] 2025 01/14/2019, 2017, 03/07/2016 Insurance [address] [place] [address] [facility] Care Teams Joy Operator Helper Relationship Specialty Start Date End Date Jenaro Valadez DO PCP - External PCP 03/05/23 Jenaro Valadez DO PCP - General 03/12/24
--- OUTSIDE RECORDS SUMMARY | 2025-02-14 21:03 | XMS_ITS | Encounter Summary ---
Author Organization [facility] Address [facility] [place]-[id number] [address] [place] [place] [address] Care Team Providers Care Sonar Technician Name Role Phone Unavailable Primary Care Provider Unavailabl e Encounter Details Date Type Department Care Team (Late st Contact Info) Description 03/21/2024 Telephone [facility] [address] [place] [address] Baylee Chu CMA Social History Tobacco Use Types Packs/Day Years Used Date Smoking Tobacco: Every Day Cigarettes 1 43.4 Started: 10/05/1981 Smokeless Tobacco: Never Alcohol Use Standard Drinks/Week Comments Not Currently 0 (1 standard drink = 0.6 oz pur e alcohol) [facility] Utilities Answer Date Recorded In the past 12 months has e [employer], gas, oil, or water [employer] threatened to shut off services in your [...] 02/27/2025 10:50 AM EDT Office Visit [facility] [place] [address] [place] [address] Padmini Montes MD [address], [address] [address] documented as of this encounter Goals Goal [...]
--- OUTSIDE RECORDS SUMMARY | 2025-02-14 21:03 | XMS_ITS | Encounter Summary ---
Author Organization [facility] Address [address] [place] [address] Phone Care Team Providers Care Practical Nursing Faculty Name Role Phone Jenaro Valadez DO Primary Care Provider [phone] Jenaro Valadez DO Primary Care Provider [phone] Encounter Details Date Type Department Care Team (Late st Contact Info) Description 03/04/2024 Scanned Document [facility] [address] [place] [address] Scanning, Generic Provider Social History Tobacco Use [...] Description 03/12/2025 3:50 PM EDT Office Visit [facility] 703 [facility] [address] [place] [address] Oumar Sandoval MD 703 [facility] 2, [address] [place] [address] Scheduled Orders Name Type Priority Associated Diagnoses Orde r Schedule Ultrasound- OnBase Scan Imaging O rdered: 03/04/2024 documented as of this encounter Visit Diagnoses Not on filedocumented in this encounter Care Teams Practical Nursing Faculty Relationship Specialty Start Date End Date Jenaro Valadez DO PCP - General 04/17/19 11/03/24 Jenaro Valadez DO [address] [place] [address] PCP - General Family Medicine 11/04/24 documented as of this encounter
--- OUTSIDE RECORDS SUMMARY | 2025-02-14 21:03 | XMS_ITS | Encounter Summary ---
Author Organization [facility] Address [address] [place] [address] Care Team Providers Care Medical Collections Representative Name Role Phone Jenaro Valadez DO Primary Care Provider [phone] Robert Zamora MD Unavailable Franklin Link DO Unavailable [phone] Jenaro Valadez DO Primary Care Provider [phone] Carlos A Bolanos Unavailable [phone] Carlos A Bolanos Unavailable [phone] Source Comments In the event this information is protected by the Federal Confidentiality of Alcohol and Drug AbusePatient Records regulations: The Federal rules restrict any use of the information to criminally investigate or prosecute any alcohol or drug abuse patient.[facility] Reason for Visit * Reason Comments PSG Check In (Adult) Encounter Details Date Type Department Care Team (Late st Contact Info) Description 08/05/2014 Abstract Neurology [address] [place] [address] Main, Sleep Center [address] [phone] PSG Check In (Adult) Social History Tobacco Use Types Packs/Day Years Used Date Smoking Tobacco: Every Day Cigarettes 0.5 47.2 Started: 11/18/1977 Smokeless Tobacco: Former Quit: 11/04/2013 [...] on filedocumented in this encounter Care Teams Medical Collections Representative Relationship Specialty Start Date End Date Jenaro Valadez DO [address] [place] [address] PCP - General Family Medicine 10/30/13 10/25/16 Jenaro Valadez DO [address] [place] [address] PCP - General Family Medicine 10/26/16 Robert Zamora MD [address] [place] [address] Primary Staff Physician Cardiology 09/03/14 6 Franklin Link DO [address] [place] [address] Referring Orthopedics 10/26/16 Carlos A Bolanos [address] [facility] [place] [address] Primary Staff Physician Cardiology 08/21/18 Carlos A Bolanos [address] [facility] [address] Primary Staff Physician Cardiology 08/21/18 documented as of this encounter
--- OUTSIDE RECORDS SUMMARY | 2025-02-14 21:03 | XMS_ITS | Encounter Summary ---
Author Organization [employer] Address [facility]-[id number] [address] 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 ([facility]) Social History Tobacco Use Types Packs/Day Years Used Date Smoking Tobacco: Every Day Cigarettes 1 43.4 Started: 10/05/1981 Smokeless Tobacco: Never Alcohol Use Standard Drinks/Week Comments Not Currently 0 (1 standard drink = 0.6 oz pur e alcohol) [facility] Utilities Answer Date Recorded In [...] Description 02/27/2025 10:50 AM EDT [facility] [place] [address] [place] [address] Padmini Montes MD [address], [address] [address] documented as of this encounter Goals Goal [...]
--- OUTSIDE RECORDS SUMMARY | 2025-02-14 21:03 | XMS_ITS | Clinical Summary ---
Author Organization [facility] Address [address] [place] [address] Phone Care Team Providers Care Funeral Director/Embalmer Name Role Phone Jenaro Valadez DO Primary Care Provider [phone] Allergies Active Allergy Reactions Criticality Noted Date [...] (100 mg) by mouth once daily. Active amitriptyline (Elavil) 100 mg tablet Take 1 tablet (100 mg) by mouth once daily. 4 Active DULoxetine (Cymbalta) [address] capsule Take 1 capsule (60 mg) by mouth once daily. Do not crush or chew. Active ferrous sulfate, 325 mg ferrous sulfate, tablet Take 1 tablet by mouth once daily. Active insulin lispro (HumaLOG) 100 unit/mL injection Inject under the skin. Take as directed per insulin instructions. Active omeprazole OTC (PriLOSEC OTC) 20 mg [...] (500 mg) by mouth once daily. Active sildenafil [...] succinate XL (Toprol-XL) 25 mg 24 hr tabletIndication s:Coronary artery disease involving [place] coronary artery of [place] heart without angina pectoris Take 1 tablet (25 mg) by mouth once daily. Do not crush or chew. 90 tablet 3 4 Active furosemide (Lasix) 40 mg tabletIndication s:Localized edema Take 1 tablet (40 mg) by mouth once daily. 90 tablet 3 4 04/02/20 25 Active aspirin 81 mg EC tabletIndication s:Hyperlipidemia , unspecified Take 1 tablet (81 mg) by mouth once daily. 90 tablet 3 5 Active magnesium oxide (Mag-Ox) 400 mg tabletIndication s:Palpitations Take 1 tablet (400 mg) by mouth once daily. 5 Active Active Problems Problem Noted Date Diagnosed [...] Encounters Date Type Department Care Team Description 02/07/2025 Results Follow-Up [address] [facility] [address] [place] [phone] Iris Purvis MD Nuclear Stress Test 02/05/2025 8:05 AM EDT - 02/05/2025 11:59 PM EDT Hospital Encounter [address] [phone] Discharge Disposition: Home 02/05/2025 8:05 AM EDT - 02/05/2025 11:59 PM EDT Hospital Encounter [facility] [address] [phone] Discharge Disposition: Home 02/05/2025 8:05 AM EDT - 02/05/2025 11:59 PM EDT Hospital Encounter [facility] [address] [phone] Discharge Disposition: Home 02/05/2025 8:05 AM EDT - 02/05/2025 11:59 PM EDT Hospital Encounter [facility] [address] [phone] Discharge Disposition: Home 02/05/2025 8:00 AM EDT - 02/05/2025 8:04 AM EDT Hospital Encounter [facility] [place] [address] [place] [address] Chest pain, unspecified type Discharge Disposition: Home 02/05/2025 Travel 12/26/[address] [place] [address] Marybel Chairez LPN Hyperlipidemia, unspecified; Palpitations 11/19/2024 Telephone [facility] [address] [address] Marie Chavez LPN Medical Advice/Question 11/17/2024 Travel from Last 3 Months Family History Medical [...] Description 03/12/2025 3:50 PM EDT Office Visit [facility] [address] [address] Oumar Sandoval MD 703 [facility] 2, [address] [address] Health Maintenance Due Date Last Done Comments [...] of 3 - 19+ 3-dose series) 1984 PSA Prostate Cancer Screening 2015 Zoster Vaccines (1 of 2) 2015 Pneumococcal Vaccine (2 of 2 - PCV) 03/05/2019 03/05/2018, 02/22/2016 COVID-19 Vaccine (3 - 2024- season) 2025 11/13/2020, 10/23/2020 Influenza Vaccine (#1) 2025 9, 04/02/2018, 03/05/2018, Additional history exists Echocardiogram 10/10/2025 10/10/2024, 02/04, 01/17/2024 DTaP/Tdap/Td Vaccines (2 - Td or Tdap) 08/05/2033 08/06/2023 HIB Vaccines Aged Out No longer eligi ble based on patient's age to complete this topic HPV Vaccines Aged Out No longer eligi ble based on patient's age to complete this topic Hepatitis A Vaccines Aged Out No long [...] 10:18 AM EDT Chest pain, unspecified type ECHOCARDIOGRAM 10/10/2024 from Last 3 Months or Most Recently Relevant to Health Maintenance Results * STRESS TEST, [place] [facility] MYOCARDIAL [...] Iris Purvis 02/05/2025 6:05 PM Dictation workstation: [id number] Narrative 02/05/2025 6:05 PM EDT Interpreted By: Iris Purvis, and Orquidea Fernando STUDY: MYOCARDIAL PERFUSION STRESS TEST WITH LEXISCAN Performing facility: [facility], [address] [place] [address], [address], [address] Provider: Iris Purvis MD, FACC PCP: Dr. Wm Valadez Supervising provider: Lui Schmidt DO, FACC INDICATION: Signs/Symptoms: ,R07.9 Chest pain, unspecified HISTORY: Gender: M; Age: 59 y/o ; Height: HT 182.9 cm cm; Weight: WT 95.709 kg kg. Chest Pain; CAD; High Cholesterol; Diabetes; SOB; COPD; Quit smoking 4 years ago. Cardiac catheterization on 2017. PTCA on 2017. COMPARISON: Previous nuclear testing completed at [facility]. ACCESSION NUMBER(S): [id number] ORDERING CLINICIAN: IRIS PURVIS TECHNIQUE: ONE DAY [...] PERFUSION STRESS TEST WITH LEXISCAN Performing facility: [facility], [address] [place] [address], [address], [address] Provider: Iris Purvis MD, FACC PCP: Dr. Wm Valadez Supervising provider: [facility] Schmidt [facility] INDICATION: Signs/Symptoms: ,R07.9 Chest pain, unspecified HISTORY: Gender: M; Age: 59 y/o ; Height: HT 182.9 cm cm; Weight: WT 95.709 kg kg. Chest Pain; CAD; High Cholesterol; Diabetes; SOB; COPD; Quit smoking 4 years ago. Cardiac catheterization on 2017. PTCA on 2017. COMPARISON: Previous nuclear testing completed at [facility]. ACCESSION NUMBER(S): [id number] ORDERING CLINICIAN: IRIS PURVIS TECHNIQUE: ONE DAY [...] Iris Purvis 02/05/2025 6:05 PM Dictation workstation: [id number] Iris Purvis MD CV STRESS PROCEDURES Final R esult * Echocardiogram (10/10/2024) Narrative 10/10/2024 Ordered by an unspecified provider. us Generic Provider Scanning CV ECHO PROCEDURES Fin al Result from Last 3 Months or Most Recently Relevant to Health Maintenance Insurance [facility] [employer] Care Teams Funeral Director/Embalmer Relationship Specialty Start Date End Date Jenaro Valadez DO [facility] [place] [address] PCP - General Family Medicine 11/04/24
--- OUTSIDE RECORDS SUMMARY | 2025-02-14 21:03 | XMS_ITS | Encounter Summary ---
Author Organization [facility] Address [address] [place] [address] Phone Care Team Providers Care Home Restoration Service Cleaner Name Role Phone Jenaro Valadez DO Primary Care Provider [phone] Jenaro Valadez DO Primary Care Provider [phone] Encounter Details Date Type Department Care Team (Late st Contact Info) Description 03/06/2024 Scanned Document [facility] [address] [place] [address] Scanning, Generic Provider Social History Tobacco Use [...] Description 03/12/2025 3:50 PM EDT Office Visit [facility] 703 [facility] [address] [place] [address] Oumar Sandoval MD 703 [facility] 2, [address] [place] [address] documented as of this encounter Visit Diagnoses Not on filedocumented in this encounter Care Teams Home Restoration Service Cleaner Relationship Specialty Start Date End Date Jenaro Valadez DO PCP - General 04/17/19 11/03/24 Jenaro Valadez DO [facility] [place] [address] PCP - General Family Medicine 11/04/24 documented as of this encounter
--- OUTSIDE RECORDS SUMMARY | 2025-02-14 21:03 | XMS_ITS | Encounter Summary ---
Author Organization [employer] Address [facility] [id number] [address] [place] [address] Care Team Providers Care Professor/Nurse Anesthetist Name Role Phone Unavailable Primary Care Provider Unavailabl e Encounter Details Date Type Department Care Team (Late st Contact Info) Description 02/02/2024 Orders Only [facility] [address] [place] [address] Padmini Montes MD [address], [facility] [address] [place] [address] Social History Tobacco Use Types Packs/Day Years Used Date Smoking Tobacco: Every Day Cigarettes 1 43.4 Started: 10/05/1981 Smokeless Tobacco: Never Alcohol Use Standard Drinks/Week Comments Not Currently 0 (1 standard drink = 0.6 oz pur e alcohol) [facility] Utilities Answer Date Recorded In the past 12 months has e [employer], gas, oil, or water [employer] threatened to shut off services in your [...] Description 02/27/2025 10:50 AM EDT Office Visit [facility] [place] [address] [place] [address] Padmini Montes MD [address], [address] [address] documented as of this encounter Goals Goal Patient Goal Type Associated Problems Recent Progress Patient-Stated? Author Patient is planning to transition back to SNF at discharge. General Yes Chandrika Quiñonez, GAS OPERATION MANAGER Note: Evaluation of progress towards goal: Patient [...] ORDERABLES Final Re sult Performing Organization Address [facility] de Phone Number MANUALLY TRANSCRIBED RESULTS * Basic Metabolic Panel (02/01/2024 1:22 PM EDT) us Padmini Montes MD LAB BLOOD ORDERABLES Final Re sult Performing Organization Address [facility] de Phone Number MANUALLY TRANSCRIBED RESULTS * CBC auto differential (02/01/2024 1:21 PM EDT) Padmini Montes MD LAB BLOOD ORDERABLES Final Re sult Performing Organization Address [facility] de Phone Number MANUALLY TRANSCRIBED RESULTS documented in this encounter Visit Diagnoses Not on filedocumented in this encounter Additional Health Concerns Assessment Noted Time PHQ-9 Depression Total Score: 0 11/07/19 24 8:40 PM EDT documented as of this encounter
--- OUTSIDE RECORDS SUMMARY | 2025-02-14 21:03 | XMS_ITS | Encounter Summary ---
Author Organization [facility] Address [address] [place] [address] Phone Care Team Providers Care Trial Judge Name Role Phone Jenaro Valadez DO Primary Care Provider [phone] Jenaro Valadez DO Primary Care Provider [phone] Encounter Details Date Type Department Care Team (Late st Contact Info) Description 03/03/2024 Scanned Document [facility] [address] [place] [id number] Scanning, Generic Provider Social History Tobacco Use [...] Description 03/12/2025 3:50 PM EDT Office Visit [facility] 7[address] [facility] [address] [place] [address] Oumar Sandoval MD 703 [facility] 2, [address] [place] [address] documented as of this encounter [...] on filedocumented in this encounter Care Teams Trial Judge Relationship Specialty Start Date End Date Jenaro Valadez DO PCP - General 04/17/19 11/03/24 Jenaro Valadez DO [address] [place] [address] PCP - General Family Medicine 11/04/24 documented as of this encounter
--- OUTSIDE RECORDS SUMMARY | 2025-02-14 21:03 | XMS_ITS | Encounter Summary ---
Author Organization [facility] Address [address] [place], [place] [id number] Care Team Providers Care Business Development Representative Name Role Phone Jenaro Valadez DO Primary Care Provider [phone] Robert Zamora MD Unavailable Franklin Link DO Unavailable [phone] Jenaro Valadez DO Primary Care Provider [phone] Carlos A Bolanos Unavailable [phone] Carlos A Bolanos Vagmere Unavailable [phone] Source Comments In the event this information is protected by the Federal Confidentiality of Alcohol and Drug AbusePatient Records regulations: The Federal rules restrict any use of the information to criminally investigate or prosecute any alcohol or drug abuse patient.[facility] Encounter Details Date Type Department Care Team (Late st Contact Info) Description 09/18/2014 Patient Msg Medical Records [address] [place], [place] [id number] Provider, [facility] PSG sleep study needing to [...] filedocumented in this encounter Care Teams Business Development Representative Relationship Specialty Start Date End Date Jenaro Valadez DO [address] [place] [address] PCP - General Family Medicine 10/30/13 10/25/16 Jenaro Valadez DO [address] [place] [address] PCP - General Family Medicine 10/26/16 Robert Zamora MD [address] [place] [address] Primary Staff Physician Cardiology 09/03/14 6 Franklin Link DO [address] [place] [address] Referring Orthopedics 10/26/16 Carlos A Bolanos [address] [place] [address] Primary Staff Physician Cardiology 08/21/18 Carlos A Bolanos [address] [facility] [place] [place] [address] Primary Staff Physician Cardiology 08/21/18 documented as of this encounter
--- OUTSIDE RECORDS SUMMARY | 2025-02-14 21:03 | XMS_ITS | Encounter Summary ---
Author Organization [employer] Address [facility] [id number] [address] [place] [address] Care Team Providers Care Hvac Sheet Metal Installer Helper Name Role Phone Unavailable Primary Care Provider Unavailabl e Encounter Details Date Type Department Care Team (Late st Contact Info) Description 01/24/2024 Orders Only [facility] [address] [place] [address] Padmini Montes MD [address], [facility] [address] [place] [address] Social History Tobacco Use Types Packs/Day Years Used Date Smoking Tobacco: Every Day Cigarettes 1 43.4 Started: 10/05/1981 Smokeless Tobacco: Never Alcohol Use Standard Drinks/Week Comments Not Currently 0 (1 standard drink = 0.6 oz pur e alcohol) [facility] Utilities Answer Date Recorded In the past 12 months has e [employer], gas, oil, or water [employer] threatened to shut off services in your [...] AM EDT Office Visit [facility] [place] [address] [place] [address] Padmini Montes MD [address], [address] [address] documented as of this encounter Goals Goal Patient Goal Type Associated Problems Recent Progress Patient-Stated? Author Patient is planning to transition back to SNF at discharge. General Yes Chandrika Quiñonez, COMMANDER POLICE RESERVES Note: Evaluation of progress towards goal: Patient [...]
--- OUTSIDE RECORDS SUMMARY | 2025-02-14 21:03 | XMS_ITS | Encounter Summary ---
Author Organization [facility] Address [address] [place] [address] Phone Care Team Providers Care Paid Internship Name Role Phone Jenaro Valadez DO Primary Care Provider [phone] Encounter Details Date Type Department Care Team (Latest Contact Info) Description 02/05/2025 Travel Social History Tobacco Use Types Packs/Day Years [...] Description 03/12/2025 3:50 PM EDT Office Visit [facility] 703 [facility] [address] [place] [address] Oumar Sandoval MD 703 [facility] 2, [address] [place], [place] [address] documented as of this encounter Visit Diagnoses Not on filedocumented in this encounter Care Teams Paid Internship Relationship Specialty Start Date End Date Jenaro Valadez DO [address] [place] [address] PCP - General Family Medicine 11/04/24 documented as of this encounter
--- OUTSIDE RECORDS SUMMARY | 2025-02-14 21:03 | XMS_ITS | Clinical Summary ---
Author Organization [employer] Address [facility] [id number] [address] [place] [address] Care Team Providers Care International Logistics Analyst Name Role Phone Unavailable Primary Care Provider [...] by subconjunctival route in the morning. 08/17/19 Active ONETOUCH ULTRA TEST strip 1 strip [...] into inhaler and inhale once daily. 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 Will do it here at [place]. Assessment & Plan (12/21/2023 8:57 AM EDT): We did iliofemoral endarterectomy and femoral above-knee bypass. He has some residual tibial occlusive disease. I discussed with him doing right lower extremity angiogram and intervention. Will do this close to home at [facility]. Assessment & Plan (10/18/2023 8:32 AM EDT): PVR and CTA abdomen and plevis with runoff Abscess of right foot 10/06/20232023 Status post partial amputation of right foot 02/28/2024 Type 2 diabetes mellitus wit h stage 4 chronic kidney disease, without long-term current use of insulin 10/06/2023 11/24/2023 Bacterial sepsis 10/06/2023 10/10/2023 Encounters Date Type Department Care Team Description 01/02/2025 Telephone [facility] [place] [address] [place] [address] Baylee Chu CMA from Last 3 Months Immunizations Immunization Administration Dates Next Due Influenza, Im Trivalent Preservative 01/14/2019 Influenza, Injectable, quadrivalent (PF) 018,03/07/2016 Influenza, Unspecified 01/14/2019 Pneumococcal Polysaccharide 02/22/2016 Social History Tobacco Use Types Packs/Day Years Used Date Smoking Tobacco: Every Day Cigarettes 1 43.4 Started: 10/05/1981 Smokeless Tobacco: Never Tobacco Cessation:Ready to Q uit: Not Asked; Counseling Given: Not Answered Alcohol Use Standard Drinks/Week Comments Not Currently 0 (1 standard drink = 0.6 oz pur e alcohol) [facility] Utilities Answer Date Recorded In the past 12 months has th e [employer], gas, oil, or water company threatened to [...] 02/27/2025 10:50 AM EDT Office Visit [facility] [place] [address] [place] [address] Padmini Montes MD [address], [address] [address] Health Maintenance Due Date Last Done Comments Diabetic Ophthalmology Exam 1965 Adult BMI Follow Up Plan 1983 Diabetic Foot Exam 1983 DTaP,Tdap and Td Vaccines (1 - Tdap) 1984 Zoster (Shingles) Vaccine (1 of 2) 2015 Depression Screening 11/06/2024 11/07/2023 COVID-19 Vaccine (3 - 2024-2 6 season) 2025 11/13/2020, 10/23/2020 Influenza Vaccine 02/03/2025 01/14/2019, , 04/02/2018, Additional history exists Tobacco Screening 02/28/2025 02/29/2024 Statin Use: Cardiovascular 03/13/2025 03/13/2024 Statin Use: Diabetic 03/13/2025 03/13/2024 Adult BMI Screening 03/15/2025 03/15/2024 Tobacco Counseling 04/26/2025 10/25/2023 Goals Goal Patient Goal Type Associated Problems Recent Progress Patient-Stated? Author Patient is planning to transition back to SNF at discharge. General Yes Chandrika Quiñonez LSW Note: Evaluation of progress towards goal: Patient is planning to transition back to SNF at discharge. Medical Devices Implanted Type Area Glass Vial Bending Conveyor Feeder Device Identifier Shelf Expiration Date Model / Serial / Lot Graft Vsc 50cm 6mm [place] Thnwl Hep Propaten Ptfe Rem Rng - [id number] - [id number] Implanted:Qty : 1 on 11/08/2023 by Padmini Montes MD at [facility] Graft Right: Arterial [place] 08/21/2026 [id number] / [id number] / Description:RIGHT FEMORAL AR COREY Stent Vsc Epic 10mm 100mm 120cm 6fr Rdpq Otw Slf Xpd Gw - [id number] Implanted:Qty : 1 on 11/07/2023 by Padmini Montes MD at [facility] Stent [employer] I [id number] 09/23/2028 [id number] / / [id number] Insurance MEDICAID [place] Advance Directives * Full Code (Latest Code Status on File) Date Activated Date Inactivated Comments 11/07/2023 4:31 PM 11/14/2023 9:31 PM
--- OUTSIDE RECORDS SUMMARY | 2025-02-14 21:03 | XMS_ITS | Encounter Summary ---
Author Organization [facility] Address [address] [place] [address] Phone Care Team Providers Care Pricing Consultant Name Role Phone Jenaro Valadez DO Primary Care Provider [phone] Jenaro Valadez DO Primary Care Provider [phone] Encounter Details Date Type Department Care Team (Late st Contact Info) Description 10/11/2024 Scanned Document [facility] [address] [place] [phone] Scanning, Generic Provider Social History Tobacco Use [...] Description 03/12/2025 3:50 PM EDT Office Visit [facility] 703 [facility] [address] [place] [address] Oumar Sandoval MD 703 [facility] 2, [address] [place] [address] documented as of this encounter Visit Diagnoses Not on filedocumented in this encounter Care Teams Pricing Consultant Relationship Specialty Start Date End Date Jenaro Valadez DO PCP - General 04/17/19 11/03/24 Jenaro Valadez DO [facility] [place] [address] PCP - General Family Medicine 11/04/24 documented as of this encounter
--- OUTSIDE RECORDS SUMMARY | 2025-02-14 21:03 | XMS_ITS | Encounter Summary ---
Author Organization [employer] Address [facility] [id number] [address] [place] [address] Care Team Providers Care Launderer Hand Name Role Phone Unavailable Primary Care Provider Unavailabl e Encounter Details Date Type Department Care Team (Late st Contact Info) Description 01/31/2024 Telephone [facility] [address] [place] [address] Padmini Montes MD [address], [facility] [address] [place] [address] Social History Tobacco Use Types Packs/Day Years Used Date Smoking Tobacco: Every Day Cigarettes 1 43.4 Started: 10/05/1981 Smokeless Tobacco: Never Alcohol Use Standard Drinks/Week Comments Not Currently 0 (1 standard drink = 0.6 oz pur e alcohol) [facility] Utilities Answer Date Recorded In the past 12 months has e [employer], gas, oil, or water [employer] threatened to shut off services in your [...] is so. They can be reached at [phone] Thank you. * Telephone Encounter - Lay Vang LPN - 01/31/2024 2:06 PM EDT Recommended patient contact family physician for pain medication. Patients is satisfied documented in this encounter Plan of Treatment Upcoming Encounters Date Type Department Care Team (Late st Contact Info) Description 02/27/2025 10:50 AM EDT Office Visit [facility] [place] [address] [place] [address] Padmini Montes MD [address], [address] [address] documented as of this encounter Goals Goal [...]
--- OUTSIDE RECORDS SUMMARY | 2025-02-14 21:03 | XMS_ITS | Clinical Summary ---
Author Organization [facility] Address [address] [place] [address] Care Team Providers Care Control And Recovery Combat Rescue Name Role Phone Marionnazia Franklin Olmos DO Unavailable [phone] Jenaro Valadez DO Primary Care Provider [phone] Carlos A Bolanos Unavailable [phone] Allergies Active Allergy Reactions Criticality Noted Date [...] ~1.6) who presents as a transfer from [facility] for ongoing evaluation and treatment of altered [...] today # Disposition: To be transferred to [facility], skilled for acute rehab. Neuro # Altered [...] 5 days) - Continue Vanc and Agustin (BASTING MACHINE OPERATOR dosing) as well as Acyclovir (for possible [...] Restarted home metoprolol with holding parameters - [id number] - 3, not on AC at this [...] encephalopathy vs Sepsis vs Cardiogenic shock vs BASTING MACHINE OPERATOR infection vs BASTING MACHINE OPERATOR disorder Patient came in with S urea>100 [...] encephalopathy vs Sepsis vs Cardiogenic shock vs BASTING MACHINE OPERATOR infection vs BASTING MACHINE OPERATOR disorder Patient came in with S urea>100 [...] N ot on file 05/10/2020 Data from: [email or web address] Last address used for calculation Not on [...] Additional history exists Lipid Screening 02/13/2021 02/14/2016 Influenza Vaccine (#1) 2025 03/07/2016 HIV Screening [...] METABOLIC PANEL (03/07/2016 7:19 AM EDT) Pathologist [facility] Protein, Total 6.7 6.3 - 8.0 g/dL 03/07/2016 8:28 AM EDT [facility] Albumin 3.2(L) 3.9 - 4.9 g/dL 03/07/2016 8:28 AM [facility] Calcium 9.2 8.5 - 10.5 mg/dL 03/07/2016 8:28 AM [facility] Bilirubin, Total 0.5 0.2 - 1.3 mg/dL 03/07/2016 8:28 AM [facility] Alkaline Phosphatase 122(H) 36 - 108 U/L 03/07/2016 8:28 AM [facility] AST 28 14 - 40 U/L 03/07/2016 8:28 AM [facility] Glucose 122(H) 74 - 99 mg/dL 03/07/2016 8:28 AM [facility] BUN 18 9 - 24 mg/dL 03/07/2016 8:28 AM [facility] Creatinine 1.37(H) 0.73 - 1.22 mg/dL 03/07/2016 8:28 AM [facility] Sodium 137 136 - 144 mmol/L 03/07/2016 8:28 AM [facility] Potassium 4.4 3.7 - 5.1 mmol/L 03/07/2016 8:28 AM [facility] Chloride 99 97 - 105 mmol/L 03/07/2016 8:28 AM [facility] CO2 25 22 - 30 mmol/L 03/07/2016 8:28 AM [facility] Anion Gap 13 9 - 18 mmol/L 03/07/2016 8:28 AM [facility] ALT 38 10 - 54 U/L 03/07/2016 8:28 AM EDT [facility] eGFR- >60 03/07/2016 8:28 AM EDT [facility] eGFR-All Other Races 55 . 03/07/2016 8:28 AM EDT [facility] Comment: eGFR (Estimated GFR) Units of [...] AM EDT 03/07/2016 7:20 AM EDT us Leah (Hist) Maria Luz [facility] Final Res ult [facility] [address] [place] [address] * HIV 1,2 COMBO (AG/AB) (02/27/2016 9:41 AM EDT) HIV 12 Combo (Ag/Ab) Non Reactive Non Reactive 02/27/2016 8:39 PM EDT [facility] Comment: (NOTE) HIV Information: [place] Rev. Code 3701.243(E): This information has been [...] DO LABORATORY Final Result Performing Organization Address [facility]/ZIP Co de Phone Number [facility] [address] [place] [address] * (ABNORMAL) LIPID PANEL BASIC (02/14/2016 4:43 AM EDT) Triglyceride 175(H) 30 - 149 mg/dL 02/14/2016 6:48 AM EDT [facility] Cholesterol, Total 121 100 - 199 mg/dL 02/14/2016 6:48 AM EDT [facility] HDL Cholesterol 22(L) >45 mg/dL 6 6:48 AM EDT [facility] VLDL Cholesterol 35 6 - 40 mg/dL 02/14/2016 6:48 AM EDT [facility] LDL Cholesterol, Calculated 64 60 - 129 mg/dL 02/14/2016 6:48 AM EDT [facility] Fasting Time Unknown hrs 02/14/2016 6:48 AM EDT [facility] TC:HDL Ratio 5.50(H) 1.00 - 5.00 02/14/2016 6:48 AM EDT [facility] LDL:HDL Ratio 2.91 0.50 - 3.55 02/14/2016 6:48 AM EDT [facility] Non HDL Cholesterol 99 90 - 159 mg/dL 02/14/2016 6:48 AM EDT [facility] Blood specimen (specimen) BLOOD SPECIMEN / Unknown 02/14/2016 4:43 AM EDT 02/14/2016 4:44 AM EDT us Obie Leos MD LABORATORY Final Result Performing Organization Address City/[facility]/ZIP Co de Phone Number [facility] [address] [place] [address] from Last 3 Months or Most Recently Relevant to Health Maintenance Insurance [address] [place] [address] [employer] MEDICA[employer] Advance Directives * DNR/Comfort Care (Latest Code Status on File) Date Activated Date Inactivated Comments 02/29/2016 11:07 AM 02/29/2016 11:08 AM Question Answer Comments DNR Order Discussed With: Surrogate Decision Ryan er Care Teams Control And Recovery Combat Rescue Relationship Specialty Start Date End Date Jenaro Valadez DO [address] [place] [address] PCP - General Family Medicine 10/26/16 Franklin Link DO Referring Orthopedics 10/26/16 Carlos A Bolanos [address] [place] [address] Primary Staff Physician Cardiology 08/21/18
--- OUTSIDE RECORDS SUMMARY | 2025-02-14 21:03 | XMS_ITS | Encounter Summary ---
Author Organization [facility] Address [address] [place] [address] Phone Care Team Providers Care Police Patrol Officer Name Role Phone Jenaro Valadez DO Primary Care Provider [phone] Jenaro Valadez DO Primary Care Provider [phone] Encounter Details Date Type Department Care Team (Late st Contact Info) Description 10/10/2024 Scanned Document [facility] [address] [place] [address] Scanning, Generic Provider Social History Tobacco Use [...] Description 03/12/2025 3:50 PM EDT Office Visit [facility] [address] [facility] [address] [place] [address] Oumar Sandoval MD 703 [facility] 2, [address] [place] [address] documented as of this encounter Procedures Procedure Name Priority Date/Time Associated Diagnosis Comments ECHOCARDIOGRAM 10/10/2024 documented in this encounter Results * Echocardiogram (10/10/2024) Narrative 10/10/2024 Ordered by an unspecified provider. us Generic Provider Scanning CV ECHO PROCEDURES Fin al Result documented in this encounter Visit Diagnoses Not on filedocumented in this encounter Care Teams Police Patrol Officer Relationship Specialty Start Date End Date Jenaro Valadez DO PCP - General 04/17/19 11/03/24 Jenaro Valadez DO [address] [place] [address] PCP - General Family Medicine 11/04/24 documented as of this encounter
--- OUTSIDE RECORDS SUMMARY | 2025-02-14 21:03 | XMS_ITS | Encounter Summary ---
Author Organization [facility] Address [address] [facility] [place] [address] Care Team Providers Care Passenger Car Upholsterer Apprentice Name Role Phone Jenaro Valadez DO Unavailable Jenaro Valadez DO Primary Care Provider [phone] Encounter Details Date Type Department Care Team (Late st Contact Info) Description 03/07/2024 Orders Only [facility] 703 [facility] [address] [place] [address] Luther Dozier DO Social History [...] on filedocumented in this encounter Care Teams Passenger Car Upholsterer Apprentice Relationship Specialty Start Date End Date Jenaro Valadez DO PCP - External PCP 03/05/23 Jenrao Valadez DO PCP - General 03/12/24 documented as of this encounter
--- OUTSIDE RECORDS SUMMARY | 2025-02-14 21:08 | XMS_ITS | CCD ---
Author Organization [facility] Care Team Providers Care Clinic Clerk Name Role Phone Teresa Lynch Unavailable Unavailable Unavailable Teresa Lynch Unavailable Amina Fagan Unavailable Judd Verona Unavailable Doris Barnes Unavailable DO Teresa Lynch Primary Care Provider JERARDO Mclaughlin Attending Provider DO Teresa Lynch Attending Provider [phone] SAMSA ., DUARTE Attending Unavailable ELAINE Hernandez, DUARTE Admitting Unavailable CONOR, DR LYSSA Blum Consulting Unavailable RORY, DR MOOER Primary Care Unavailable DUARTE MÁRQUEZ Consulting Unavailable TERESA LYNCH Primary Care Physician Rory, Dr. Teresa Orona Primary Care UnavailDolores Vaughn Attending Unavailable Dolores Pickard Attending Unavailable Dolores Pickard Referring Unavailable Rory, Dr. Teresa Orona Primary Care Unavaila Dolores Izquierdo Attending Unavailable Dolores Pickard Referring Unavailable Rory, Dr. Teresa Orona Primary Care Unavaila rashmi Inman II, Dr. Raulito Orona Referring Unavailable Rory, Dr. Teresa Orona Primary Care Unavailkita Inman II, Dr. Raulito Orona Attending Unavailable DO Teresa Lynch Primary Care Provider MD Abdullahi Wilson Emergency Provider DO Teresa Lynch Primary Care Provider MD Abdullahi Wilson Emergency Provider JERARDO Mclaughlin Attending Provider JERARDO Mclaughlin Referring Provider [phone] LINDSEY Soto Attending Provider DO Teresa Lynch Primary Care Provider [phone] Teresa Lynch DO Primary Care Provider MIKE MONTES Attending Unavailable PAULA SOTO Referring Unavailable SIMONMIKE Admitting Unavailable SIMONMIKE Attending Unavailable ONLY), IP WOUND CARE SERVICES (INPATIENT Consult ing Unavailable DERISO, ROSIE C Referring Unavailable MAAME RUCKER Referring Unavailable DERISO, ROSIE Snehal Referring Unavailable DO Teresa Lynch Primary Care Provider Mike Montes Admitting Unavailable SimonMike pennington Attending Unavailable Mike Montes Referring Unavailable MD Elan Antonio Attending Unavaila ble Mike Montes Consulting Unavailable Mike Montes Consulting Unavailable Mike Montes Consulting Unavailable MD Mike Montes Admitting Unavailable MD Mike Montes Consulting Unavailable MD Mike Montes Attending Unavailable MD Mike Montes Referring Unavailable SimonMike pennington Consulting Unavailable SimonMike pennington Consulting Unavailable SimonMike pennington Admitting Unavailable SimonMike Consulting Unavailable SimonMike pennington Attending Unavailable Mike Montes Referring Unavailable ROWE, Yeyo Blum Attending Unavailable ROWE, Yeyo Blum Attending Unavailable MD Mike Montes Admitting Unavailable Simon, MD Mike Weathers Attending Unavailable NONE, XXXX Referring Unavailable MD [...] Attending Unavailable MD Mike Montes Referring Unavailable MD Mike Montes Admitting Unavailable MD Mike Montes Attending Unavailable MD Mike Montes Referring Unavailable Simon, MD Mike Weathers Admitting Unavailable Simon, MD Mike Weathers Attending Unavailable Yeyo ROWE Attending Unavailable Simon, MD Mike Weathers Admitting Unavailable Simon, MD Mike Weathers Attending Unavailable Simon, MD Mike Weathers Referring Unavailable iSmon, MD Mike Weathers Admitting Unavailable Simon, MD Mkie Weathers Attending Unavailable Simon, MD Mike Weathers Referring Unavailable Simon, Mike F. Admitting Unavailable Simon, Albertamed F. Consulting Unavailable Simon, Mike F. Referring Unavailable Raulito Gilliland Attending Unavailable Simon, Albertamed F. Consulting Unavailable Simon, Albertamed F. Consulting Unavailable LINDSEY Soto Attending Provider [phone] MD Kait Dan Emergency Provider DO Teresa Lynch Primary Care Provider MD João Powell Admit Provider MD João Powell Attending Provider [phone] MD Kait Dan Emergency Provider DO Teresa Lynch Primary Care Provider MD João Powell Admit Provider MD João Powell Attending Provider MD Lyssa Sharpe Other Provider MD Mike Burleson Other Provider ALBERT MONTESAMED F Attending Unavailable SIMONALBERTAMED F Attending Unavailable Curt, LINDSEY Hooker Attending Provider [phone] MD Kait Dan Emergency Provider [phone] DO Teresa Lynch Primary Care Provider MD João Powell Admit Provider MD João Powell Attending Provider MD Lyssa Sharpe Other Provider MD Mike Burleson Other Provider DO Bonilla Rubin Emergency Provider [phone] DO Luther Dozier Other Provider MD Job James Other Provider MD Remberto Ervin Attending Provider [phone] DO Scottie Bonilla Emergency Provider DO Luther Dozier Other Provider MD Job James Other Provider [phone] MD Remberto Ervin Attending Provider Kait Dan MD Emergency Provider [phone] Teresa Lynch DO Primary Care Provider João Powell MD Admit Provider João Powell MD Attending Provider [phone] Lyssa Sharpe MD Other Provider Mike Burleson MD Other Provider Scottie BRICENO, Bonilla Emergency Provider [phone] Luther Dozier DO Other Provider Jacob HERRERA, Job Other Provider Remberto Ervin MD Attending Provider [phone] Mike Burleson MD Attending Provider [phone] Marybel Sanchez Unavailable Unavailable Teresa Lynch DO Primary Care Provider [phone] Namita Mercer LPN. Unavailable Unava ilable Teresa Lynch MD Unavailable Yeyo ROWE Attending Unavailable eYyo ROWE Admitting Unavailable Yeyo ROWE Attending Unavailable Elan Antonio Attending Unavailable Unavailable Primary Care Provider Unavailabl e Teresa Lynch DO Primary Care Provider Negro Hu MD Attending Provider Teresa Lynch DO Primary Care Provider Negro Hu MD Attending Provider Duncan MD, Francisco D Emergency Provider Sina HERRERA, Marge Admit Provider Sina HERRERA, Marge Attending Provider Maximiliano HERRERA, Kevon Baum Attending Provider [phone] Gracia HERRERA, Amina Other Provider Angelica KURTZ, Jez Martin Emergency Provider Abdullahi Canchola DO Admit Provider Abdullahi Canchola DO Attending Provider Eneida STERN, Elle Other Provider Unavailable Danyell Schmidt DO Other Provider Yaniv HERRERA, Pascale Other Provider [phone] Raulito Inman MD Other Provider Lori HERRERA, Bernard Other Provider Cash Rosales MD Other Provider Dolores Pickard APRN Other Provider Elton HERRERA, Jeanie Other Provider Simon HERRERA, Andrew Elise Other Provider Shaheed Barboza MD Other Provider Gabby [facility], Maryann Hopkins Other Provider Teresa Lynch DO Primary Care Provider Teresa Lynch DO Attending Provider Maurice Francis MD Other Provider Teresa Lynch Primary Care Unavailable Mike Burleson Attending Unavailable Mike Burleson Admitting Unavailable Teresa Lycnh Primary Care Unavailable Abdulalhi Canchola Attending Unavailable Abdullahi Canchola Admitting Unavailable Elle Monique Consulting Unavailable Elle Monique Consulting Unavailable Danyell Schmidt Consulting Unavailable Pascale Arnold Consulting Unavailable Raulito Inman Consulting Unavail able Bernard De La Cruz Consulting Unavailable Cash Rosales Consulting Unavailab Dolores Cleaning Consulting Unavailable Conde, Jeanie Consulting Unavailable Simon, Andrew Naолегeb Consulting Unavailab Shaheed Quinonez Consulting Unavailable Maryann Pierre Consulting Unavailable Kuns, Teresa Primary Care Unavailable Marge Andino Admitting Unavailable Amelies, Norrisiz Consulting Unavailable Kevon Viera Attending Unavailable Kuns, Teresa Primary Care Unavailable Andre, Mohamad Admitting Unavailable Andre, Mohamad Attending Unavailable Lyssa Sharpe Consulting Unavailable Mike Burleson Consulting Unavailable Andre, Mohamad Admitting Unavailable Luther Dozier Consulting Unavailable Kuns, Teresa Primary Care Unavailable Remberto Ervin Attending Unavailable Job James Consulting Unavailable Mike Burleson Consulting Unavailable Paula Soto Attending Unavailable Paula Soto Admitting Unavailable Kuns, Teresa Primary Care Unavailable Negro Hu Attending Unavailable Negro Hu Admitting Unavailable Teresa Lynch Attending Unavailable Jetts, Teresa Admitting Unavailable Kuns, Teresa Primary Care Unavailable Bakdariuss, Aziz Consulting Unavailable Maurice Francis Consulting Unavailable Teresa Lynch DO Primary Care Provider Francisco Duncan MD Emergency Provider Marge Andino MD Admit Provider Kevon Viera MD Attending Provider [phone] Amina Fagan MD Other Provider Jez Dominguez PA-C Emergency Provider [phone] Abdullahi Canchola DO Admit Provider Abdullahi Canchola DO Attending Provider Teresa Lynch DO Attending Provider Maurice Francis MD Other Provider BERNARD DE LA CRUZ Attending Unavailable TERESA LYNCH Primary Care Unavailable Unavailable Primary Care Provider UnavailJERARDO Aguayo Attending Unavailab Yeyo Valentino Attending Unavailable Yeyo ROWE Attending Unavailable JERARDO VANG Attending Unavailab Teresa Ghotra DO Primary Care Provider PASCALE ARNOLD Referring Unavailable TERESA LYNCH Primary Care Unavailable PASCALE ARNOLD Referring Unavailable TERESA LYNCH Primary Care Unavailable Allergies Allergy Classification Reported Allergen(s) Allergy Type Date of Onset Reaction(s) Facility (20 sources) natural latex rubber; Translations: [LATEX] Allergy to substance (finding) 03-27-20 23 Itching (finding), Eruption of skin (disorder) [facility] (20 sources) Penicillins; Translations: [Penicillins] Allergy to drug (finding) 11-05-19 14 Anaphylactoid reaction (disorder) [facility] (20 sources) Acetaminophen / oxyCODONE Drug Allergy 03-14-20 17 vomiting [employer] [facility] [employer] Other (20 sources) tamsulosin; Translations: [TAMSULOSIN] Drug Allergy 07-14-19 21 [facility] (20 sources) PENICIILIN Propensity to adverse reactions [employer] [facility] [employer] Other (20 sources) Acetaminophen; Translations: [ACETAMINOPHEN] Drug Allergy 07-14-19 21 [facility] (20 sources) oxyCODONE; Translations: [Oxycodone] Drug Allergy 02-08-20 17 Vomiting [facility] (1 source) Penicillins Drug allergy (disorder) 09-23-19 14 [facility] (20 sources) Penicillin G; Translations: [penicillin G benzathine] Drug Allergy [facility] (12 sources) Penicillin; Translations: [Penicillin] Drug Allergy anaphylaxis, Anaphylactoid reaction (disorder) [facility] (20 sources) Latex Allergy to substance 03-27-20 23 Unknown, Dermatitis, Itching, Rash [facility] (20 sources) Penicillins Drug Allergy 11-05-19 14 [facility], [facility] (18 sources) Isosorbide; Translations: [ISOSORBIDE MONONITRATE] Drug Allergy 08-05-19 15 Other (See Comments) [facility] (1 source) Acetaminophen / oxyCODONE Drug Allergy 03-14-20 17 [facility] (6 sources) Isosorbide Dinitrate Drug Allergy 08-05-19 15 Other, Other (See Comments) [facility] (1 source) Latex Propensity to adverse reactions 03-27-20 23 Dermatitis, Itching, Rash, Unknown [facility] (1 source) Penicillins Drug Intolerance 11-05-19 14 Anaphylaxis, Hives [facility] (6 sources) Propoxyphene Drug Allergy 03-14-[address] [facility] (1 source) Latex Drug allergy (disorder) 11-06-19 25 [facility] (1 source) Penicillins Drug allergy (disorder) 11-06-19 25 [facility] (1 source) tamsulosin Drug Allergy 07-31-19 24 [facility] (6 sources) Penicillins Propensity to adverse reactions to drug 11-05-19 14 Anaphylaxis, Hives [facility] Medications Current Medications Medication Drug Class(es) Dates [...] 1:00am July 14, 2020 12:39pm Start: 10-10-2014 [place] 325 mg-5 mg oral tablet 1 tab(s), Oral, q4hr for pain, 12 tab(s), Refill(s) 0 Start Date: 10/10/14 Status: Ordered [id number] 200 actuat albuterol 0.09 mg/actuat metered dose inhaler (20 sources) beta2-Adrenergic Agonist Start: 11-23-2022 take 2 puff(s) by inhalation every four hours as needed albuterol (PROAIR HFA) 90 mcg/actuation inhaler Inhale 2 puffs every 4 (four) hours as needed. 11/23/2022 Active Start: 11-23-2022 ProAir HFA Inh alation, q6hr Shortness of breath or wheezing Start Date: 11/23/22 Status: Ordered Repeat number: 1 Start: 11-23-2022 ProAir HFA Inh alation, q6hr [...] puffs 2 times a day. Active take 2 puff(s) by in halation in the morning albuterol (PROVENTIL HFA;VENTOLIN HFA) 90 mcg/actuation inhaler Inhale 2 puffs in the morning and 2 puffs before bedtime. Active take 2 puff(s) by in halation in the morning albuterol HFA 90 mcg/act inhaler Inhale 2 puffs in the morning and 2 puffs before bedtime. Active take 1-2 puff(s) by mouth every [...] Xanthine Oxidase Inhibitor Start: 11-05-2024 amitriptyline hydrochloride 100 mg oral tablet (20 sources) Tricyclic Antidepressant Start: 07-12-2023 End: 08-30-2024 Start: 07-12-2023 End: 03-06-2024 take 4 tablets [...] Active ascorbic acid 500 mg oral tablet (8 sources) Vitamin C take 1 tablet by kalie th once daily ascorbic acid (Vitamin C) 500 mg tablet Take 1 tablet (500 mg) by mouth once daily. Active take 1 tablet by mouth once suzanne y ascorbic acid (Vitamin C) 500 MG tablet Take 1 tablet (500 mg) by mouth once daily. Active aspirin 81 mg delayed release oral tablet (20 sources) Platelet Aggregation Inhibitor, Nonsteroidal Anti-inflammatory Drug Start: 06-16-2023 take 1 tablet by mouth once daily aspirin 81 mg EC tablet Indications: Hyperlipidemia, unspecified Take 1 tablet (81 mg) by mouth once daily. 90 tablet 3 12/26/2024 Active Start: 06-22-2021 take 1 tablet by [...] (20 sources) HMG-CoA Reductase Inhibitor Start: 03-13-2024 End: 04-04-2024 Start: 07-10-2014 End: 11-05-2024 take 1 tablet by mouth once daily Lipitor 80 mg Tab 80 mg = 1 tab(s), Oral, Daily, # 30 tab(s), Refills(s) 0 Start Date: 07/10/14 Status: Ordered Quantity: 30.0 Unit: tab(s) Repeat number: 1 Blood Glucose Meter kit (20 sources) Start: [...] sources) P2Y12 Platelet Inhibitor Start: 07-10-2014 End: 09-12-2024 empagliflozin 10 mg oral tablet (20 sources) Sodium-Glucose Cotransporter 2 Inhibitor Start: 11-23-2022 End: 06-25-2024 take 1 tablet by mouth once daily in the morning Jardiance 10 mg oral tablet 10 mg = 1 tab(s), Oral, qAM Start Date: 11/23/22 Status: Ordered Repeat number: 1 Start: 09-28-2020 take 1 tablet by kalie [...] Date: 10/31/13 Status: Ordered Flash Glucose Scanning [place] (Freestyle Jigar 2 [place]) misc (12 sources) Start: 12-28-2023 Flash Glucose Scanning [place] (Freestyle Jigar 2 [place]) misc Active 0 .Route December 27, 2023 11:00pm As directed Start: 12-28-2023 Flash Glucose Scanning [place] (Freestyle Jigar 2 [place]) misc Active 0 .Route December 28, 2023 12:00am As directed Start: 12-28-2023 Flash Glucose Scanning [place] (Freestyle Jigar 2 [place]) misc Active 0 .ROUTE December 28, 2023 [...] (20 sources) Loop Diuretic Start: 07-26-2023 End: 04-02-2025 take 1 tablet by mouth once daily furosemide (Lasix) 40 mg tablet Indications: Localized edema Take 1 tablet (40 mg) by mouth once daily. 90 tablet 3 04/02/2024 04/02/2025 Active Start: 07-12-2023 End: 03-08-2024 Start: 07-12-2023 End: [...] tablet (20 sources) Sulfonylurea Start: 10-31-2013 End: 11-05-2024 hydroCHLOROthiazide 12.5 mg / valsartan 80 mg oral tablet (20 sources) Thiazide Diuretic, Angiotensin 2 Receptor Lamont Start: 11-05-2024 Start: 08-11-2024 End: 10-11-2024 Start: 04-05-2024 End: 04-05-2024 Start: 03-13-2024 End: 08-11-2024 Start: 03-13-2024 End: 08-11-2024 take 1 tablet by mouth once daily Valsartan-Hydrochlorothiazide 80-12.5 mg tablet Discontinued 1 TAB PO Daily April 05, 2024 3:28pm August 11, 2024 4:35am Start: 07-12-2023 End: 03-13-2024 Start: 11-23-2022 End: 10-11-2024 take 1 tablet by mouth once daily Valsartan-Hydrochlorothiazide (Diovan Hct) 160-12.5 mg tablet Discontinued 1 TAB PO Daily August 11, 2024 1:00am October 11, 2024 1:31pm take 1 tablet by kalie th once daily Valsartan-hydroCHLOROthiazide 160-12.5 MG 1 tablet Orally Once a day Active take 1 tablet by kalie th every eight hours take 1 tablet by kalie th three times daily Valsartan-hydroCHLOROthiazide 160-12.5 MG 1 tablet Orally TID Active hydrOXYzine hydrochloride 25 mg oral tablet (20 sources) Antihistamine Start: 05-06-2024 End: 11-05-2024 Start: 04-19-2024 End: 04-23-2024 Insulin Lispro (14 sources) Insulin Analog Start: 02-21-2024 insulin lispro 0-10 Unit(s), SubCutaneous, QIDACHS, Refills(s) 0 Start Date: 02/21/24 Status: Ordered Repeat number: 1 Start: 02-21-2024 insulin lispro 0-10 Unit(s), SubCutaneous, QIDACHS, Refills(s) 0 Start Date: 02/21/24 Status: Ordered Start: 02-20-2024 End: 02-20-2024 HumaLOG Sliding Scale 0-10 U nit(s), Injection-Insulin, SubCutaneous, Start date 02/20/24 4:30:00 PM EDT Start Date: 02/20/24 Stop Date: 02/20/24 Status: Completed insulin lispro ( HumaLOG) 100 unit/mL injection Inject under the skin. Take as directed per insulin instructions. Active Insulin Lispro 1 00 UNIT/ML solution Inject under the skin. Take as directed per insulin instructions. Active Insulin Syringe,Safety Needle (1 source) Start: 03-29-2024 Insulin Syring e,Safety Needle Active 0 .Route 100 March 29, 2024 12:00am As directed 24 hr isosorbide mononitrate 30 mg extended release oral tablet (20 sources) Nitrate Vasodilator Start: 08-11-2024 Start: 01-11-2023 End: 05-07-2024 Start: 07-11-2014 take 1 tablet by kalie th once daily in the morning Imdur 60 mg ER Tab 60 mg = 1 tab(s), Oral, qAM, # 30 tab(s), Refills(s) 0 Start Date: 07/11/14 Status: Ordered Tenzin packet (3 sources) Start: 02-21-2024 Tenzin packet O ral, BID, Refill(s) 0 Start Date: 02/21/24 Status: Ordered loperamide hydrochloride 2 mg oral tablet (3 sources) Opioid Agonist take 1 tablet by mouth four times daily as needed for diarrhea loperamide (Imodium A-D) 2 MG tablet Take 1 tablet (2 mg) by mouth 4 times a day as needed for diarrhea. Active magnesium oxide 400 mg oral tablet (20 sources) Start: 12-26-2024 take 1 tablet by mouth once daily magnesium oxide (Mag-Ox) 400 mg tablet Indications: Palpitations Take 1 tablet (400 mg) by mouth once daily. 12/26/2024 Active Start: 05-07-2024 End: 09-05-2024 Start: 03-13-2024 End: 04-04-2024 magnesium oxide (Mag-Ox) 400 MG tablet 1 tablet (400 mg) 3 times a day. Active metFORMIN hydrochloride 1000 mg oral tablet (20 sources) Biguanide Start: 06-06-2012 End: 09-12-2024 take 1 tablet by kalie th every twelve hours metFORMIN (Glucophage) 1,000 mg tablet T valeriano 1 tablet (1,000 mg) by mouth every 12 hours. Active take 1 tablet by kalie th every twelve hours metFORMIN (GLUCOPHAGE) 1000 mg tablet Ta ke 1 tablet (1,000 mg total) by mouth every 12 (twelve) hours. Active metoprolol tartrate 25 mg or [...] ablet Discontinued 12.5 MG PO Twice daily March 06, 2024 12:38pm March 08, 2024 [...] hr tablet Indications: Coronary artery disease involving [place] coronary artery of [place] heart without angina pectoris Take 1 tablet (25 mg) by mouth once daily. Do not crush or chew. 90 tablet 3 01/01/2024 Active Start: 04-01-2018 End: 03-06-2024 metoprolol tartrate 100 mg T ab 50 mg = 0.5 tab(s), Oral, BID, Refills(s) 0 Start Date: 02/12/24 Status: Ordered Repeat number: 1 Start: 04-01-2018 End: 03-13-2024 Start: 04-01-2018 End: 03-13-2024 take 12.5 mg [...] 24 hr nicotine 0.875 mg/hr transdermal system (8 sources) Cholinergic Nicotinic Agonist Start: 10-11-2024 Start: 02-21-2024 nicotine 14 mg /24 hr Transderm ER Film TransDermal, Daily, Refill(s) 0 Start Date: 02/21/24 Status: Ordered Repeat number: 1 nitroglycerin 0.4 mg sublingual tablet (20 sources) Nitrate Vasodilator Start: 11-03-2021 nitroglyce rin (Nitrostat) 0.[address] under the tongue. 11/03/2021 Active Start: 07-10-2014 End: 03-13-2019 nitroglycerin (N itrostat) [...] 01-02-2018 End: 06-25-2024 take 2 tablets by [facility] twice daily before mealtime omeprazole OTC (PriLOSEC OTC) 20 mg EC tablet Take 2 tablets (40 mg) by mouth 2 times a day before meals. Do not crush, chew, or split. Active ONETOUCH ULTRA2 METER misc (19 sources) Start: 08-17-2023 ONETOUCH ULTRA 2 METER [...] times daily October 10, 2024 12:00am Start: 08-12-2024 End: 10-10-2024 take 1 capsule by mouth three times daily Pregabalin (Lyrica) 75 mg capsule Discontinued 75 MG PO Three times daily 3 August 30, 2024 12:00am October 10, 2024 6:58pm Start: 03-13-2024 End: 04-05-2024 take 1 capsule by mouth twice daily Pregabalin 50 mg Capsule Discontinued 50 MG PO Twice daily 0 March 13, 2024 12:00am April 05, 2024 1:35pm Start: 01-24-2011 End: 08-30-2024 take 1 capsule by mouth three times daily Pregabalin (Lyrica) 200 mg capsule Discontinued 200 MG PO Three times daily August 30, 2024 12:00am August 30, 2024 9:49am ProAir HFA 108 (90 Base) MCG/ACT (20 [...] days. 60 tablet 11/08/2023 12/08/2023 Active sennosides, prison 8.6 mg oral tablet (3 sources) Start: [...] Dipeptidyl Peptidase 4 Inhibitor Start: 07-09-2020 End: 06-25-2024 tamsulosin hydrochloride 0.4 mg oral capsule (20 sources) alpha-Adrenergic Lamont Start: 03-08-2024 take 1 capsule by mouth twice daily tamsulosin 0.4 mg Cap 0.4 mg = 1 cap(s), Oral, BID, # 180 cap(s), Refills(s) 3, Pharmacy: [facility]/pharmacy #[id number], 182, cm, 09/27/24 10:46:00 EDT, Height/Length Dosing, 88, kg, 09/27/24 10:46:00 EDT, Weight Dosing Start Date: 09/27/24 Status: Ordered Quantity: 180.0 Unit: cap(s) Repeat number: 4 Start: 02-21-2024 End: 02-21-2024 tamsulosin 0.4 mg [...] 90 cap(s) Start Date: 11/23/22 Status: Ordered Quantity: 90.0 Unit: cap(s) Repeat number: 1 Start: 11-23-2022 Spiriva 18 mcg Cap 18 [...] Refills: 0 Ordered: 26-Oct-2021 DO Active Tiotropium [place] (Spiriva With Handihaler) 18 mcg capsule, w/inhalation device (20 sources) Start: 03-03-2024 take 1 capsule by inhalation once daily Tiotropium [place] (Spiriva With Handihaler) 18 mcg capsule, w/inhalation device Active 1 CAP INHALATION Daily March 02, 2024 11:00pm puncture 1 cap using device; one dose = 2 inhalations Start: 03-03-2024 take 1 capsule by in halation once daily Tiotropium [place] (Spiriva With Handihaler) 18 mcg capsule, w/inhalation device Active 1 CAP INHALATION Daily March 03, 2024 12:00am puncture 1 cap using device; one dose = 2 inhalations Start: 07-12-2023 End: 03-03-2024 take 1 capsule by inhalation once daily Tiotropium [place] (Spiriva With Handihaler) 18 mcg capsule, w/inhalation device Discontinued 1 CAP INHALATION Daily July 12, 2023 12:00am March 03, 2024 1:29pm puncture 1 cap using device; one dose = 2 inhalations Start: 07-12-2023 End: 03-03-2024 take 1 capsule by inhalation once daily Tiotropium [place] (Spiriva With Handihaler) 18 mcg capsule, w/inhalation device Discontinued 1 CAP INHALATION Daily July 12, 2023 1:00am March 03, 2024 2:29pm puncture 1 cap using device; one dose = 2 inhalations Start: 07-12-2023 take 1 capsule by in halation once daily Tiotropium [place] (Spiriva With Handihaler) 18 mcg capsule, w/inhalation device Active 1 CAP INHALATION Daily July 12, 2023 1:00am puncture 1 cap using device; one dose = 2 inhalations Start: 07-12-2023 take 1 capsule by in halation once daily Tiotropium [place] (Spiriva With Handihaler) 18 mcg capsule, w/inhalation device Active 1 CAP INHALATION Daily July 12, 2023 12:00am puncture 1 cap using device; one dose = 2 inhalations tiZANidine 4 mg oral tablet (20 sources) Central alpha-2 Adrenergic Agonist Start: 08-11-2024 Start: 03-08-2024 End: 03-13-2024 Start: 07-12-2023 End: 03-03-2024 Start: 11-23-2022 take 1 capsule by mo uth three times daily as needed for muscle spasms tiZANidine (ZANAFLEX) 4 mg capsule Take 1 capsule (4 mg total) by mouth 3 (three) times a day as needed for muscle spasms. 11/23/2022 Active Start: 07-04-2022 take 1 tablet by kalie th every twelve hours tiZANidine HCl 4 MG 1 tablet as needed Orally Twice a day Jun, Active take 1 capsule by mo uth once daily tiZANidine (Zanaflex) 4 mg capsule Take 1 capsule (4 mg) by mouth once daily. Active take 2 tablets by mo uth at bedtime tiZANidine HCl - 4 MG [...] day(s), # 12 tab(s), Refills(s) 0, Pharmacy: [facility]/pharmacy #[id number], 182, cm, 08/02/24 9:08:00 EST, [...] 2019 2:52pm ubrogepant 100 mg oral tablet (20 sources) take 1 tablet by mouth once [...] tablet (20 sources) Start: 03-13-2024 End: 04-04-2024 acetaminophen (T ylenol) 500 mg tablet Take by mouth every 8 hours if needed for mild pain (1 - 3). Active take 2 tablets by mo uth every eight hours as needed for pain and fever acetaminophen (TYLENOL EXTRA STRENGTH) 5 00 mg tablet Take 2 tablets (1,000 mg total) by mouth every 8 (eight) hours as needed for pain or fever. Active acetaminophen 325 mg / oxyCODONE hydrochloride [...] day as needed. 10/24/2023 Discontinued (Therapy completed) 10 ml aminophylline 25 mg/ml injection (1 source) Start: 02-05-2025 End: 02-05-2025 50 mg, intravenous, Administ er over 1 Minutes, Once, On Mon02/05/25 at 1000, For 1 dose Start: 02-05-2025 End: 02-05-2025 50 mg, intravenous, Administ er over 1 Minutes, Once, On Mon02/05/25 at 1000, For 1 dose amLODIPine 10 mg oral tablet (20 sources) [...] End: 03-08-2024 Blood-Glucose Meter,Continuous (Freestyle Jigar 3 [place]) misc (10 sources) Start: 12-25-2023 End: 12-28-2023 Blood-Glucose Meter,Continuous (Freestyle Jigar 3 [place]) misc Discontinued 0 .Route December 24, 2023 11:00pm December 28, 2023 10:03am As directed Start: 12-25-2023 End: 12-28-2023 Blood-Glucose Meter,Continuo us (Freestyle Jigar 3 [place]) misc Discontinued 0 .Route December 25, 2023 [...] Jigar 3 Sensor) device Discontinued 0 .Route 1 December 25, 2023 12:00am December 28, 2023 11:03am As directed Blood-Glucose,Slicing Machine Operator,Cont (Freestyle Jigar 3 [place]) misc (2 sources) Start: 12-25-2023 End: 12-28-2023 Blood-Glucose,Slicing Machine Operator,Cont (Freestyle Jigar 3 [place]) misc Discontinued 0 .Route 1 December 25, [...] Start: 08-12-2024 take 2 tablets by mo [facility] once at mealtime Calcium Carbonate-Vitamin D3 (Oyster [...] 08-23-2024 Start: 01-30-2023 take 1 capsule by [facility] once daily doxycycline hyclate 100 mg Cap 100 mg = 1 cap(s), Oral, Daily, Take 1 pill the day before the procedure and 1 pill after the procedure, # 2 cap(s), Refills(s) 0, Pharmacy: [facility]/pharmacy #[id number], 182, cm, 01/30/23 10:24:00 EDT, [...] a week. 01/30/2023 Active Start: 07-27-2021 End: 06-25-2024 DULoxetine 30 mg delayed release oral capsule (20 sources) Serotonin and Norepinephrine Reuptake Inhibitor Start: 03-13-2024 End: 04-04-2024 take 1 capsule by mouth once abner ly DULoxetine (Cymbalta) [address] capsule Take 1 capsule (60 mg) by mouth once daily. Do not crush or chew. Active ferrous sulfate 325 mg oral tablet (20 sources) Start: 03-06-2024 End: 04-23-2024 take 1 tablet by mouth every other day Ferrous Sulfate 325 mg (65 mg iron) tablet Discontinued 325 MG PO Q2D March 06, 2024 12:00am April 23, 2024 [...] Refills(s) 0 Start Date: 02/21/24 Status: Ordered Repeat number: 1 Insulin Lispro (Humalog Kwikpen Insulin) 100 unit/mL [...] End: 03-13-2024 Start: 03-03-2024 End: 03-13-2024 Ipratropium [place] (Atroven t Hfa) 17 mcg/actuation HFA aerosol [...] lansoprazole 30 mg delayed release oral capsule (20 sources) Proton Pump Inhibitor Start: 07-24-2019 End: 07-14-2020 Nutritional Supplements (Nutra Pro High Protein) powder (12 sources) Start: 03-03-2024 End: 03-08-2024 Nutritional Supplements (Nutra Pro High Protein) powder Discontinued 1 EACH [...] 03-08-2024 Start: 02-21-2024 take 2 tablets by [facility] every six hours as needed for pain [...] tablet 11/14/2023 11/21/2023 Active polyethylene glycol 3350 16965 mg powder for oral solution (20 sources) Osmotic Laxative Start: 02-21-2024 End: 03-08-2024 12 hr ranolazine 1000 mg extended release oral tablet (20 sources) Anti-anginal Start: 07-10-2014 End: 07-14-2020 regadenoson (Lexiscan) injection 0.4 mg (1 source) Start: 02-05-2025 End: 02-05-2025 0.4 mg, intravenous, Once, On Mon02/05/25 at 0930, For 1 dose rimegepant 75 mg disintegrating oral tablet (20 sources) Start: 05-07-2024 End: [...] Refills(s) 0 Start Date: 02/12/24 Status: Ordered Repeat number: 1 Sennosides (Senna Laxative) 8.6 mg tablet (12 [...] 19, 2024 1:00am April 23, 2024 1:50pm Tc-99m tetrofosmin (Myoview) injection 10 millicurie (1 source) Start: 02-05-2025 End: 02-05-2025 10 millicurie, intravenous, Once in imaging, Starting on Mon02/05/25 at 0817, For 1 dose, Administer 45 to 90 minutes prior to imaging unless otherwise indicated. Tc-99m tetrofosmin (Myoview) injection 30 millicurie (1 source) Start: 02-05-2025 End: 02-05-2025 30 millicurie, intravenous, Once in imaging, Starting on Mon02/05/25 at 0927, For 1 dose, Administer 45 to 90 minutes prior to imaging unless otherwise indicated. Toradol 30 mg/ml (20 sources) Start: 07-25-2022 [...] emphysema; Translations: [Chronic obstructive lung disease] Onset: 03-03-2023 11-23-2022 Chronic Congestive heart failure; nonhypertensive (20 sources) Congestive heart failure; Translations: [Heart failure] Onset: 08-04-2023 10-10-2014 Chronic Coronary atherosclerosis and other heart disease (20 sources) Disorder of coronary artery; Translations: [Coronary atherosclerosis of unspecified type of vessel, [place] or graft] Onset: 11-05-2013 Resolved: 02-15-2022 Chronic Deficiency and other anemia (1 source) Anemia in chronic kidney disease; Translations: [Anemia in chronic kidney disease] Onset: 08-11-2024 Chronic Deficiency and other anemia (1 source) Iron deficiency anemia 01-28-2025 Episodic Delirium, dementia, and amnestic and other cognitive disorders (1 source) Dementia Onset: 03-03-2023 01-28-2025 Chronic Diabetes mellitus with complications (20 sources) Peripheral vascular disorder due to diabetes mellitus; Translations: [Type 2 diabetes mellitus with other circulatory complications] Onset: 06-23-2021 Resolved: 01-28-2025 Chronic Comment on above: Outside Source Comme nt: Comment on above: w/ surrounding cellulitis Diabetes mellitus without complication (20 sources) Diabetes mellitus; Translations: [Diabetes mellitus without mention of complication, type II or unspecified type, not stated as uncontrolled] Onset: 03-27-2023 04-02-2018 Chronic Diseases of white blood cells (1 source) Leukocytosis; Translations: [Elevated white blood cell count, unspecified] Onset: 02-20-2024 Chronic Disorders of lipid metabolism (20 sources) Hyperlipidemia; Translations: [Other and unspecified hyperlipidemia] Onset: 07-17-2015 Resolved: 02-15-2022 Chronic Comment on above: Outside Source Comme nt: Overview: Cont home atorva Esophageal disorders (20 sources) Gastroesophageal reflux disease; Translations: [Gastro-esophageal reflux disease without esophagitis] Onset: 07-27-2021 Resolved: 02-15-2022 Chronic Gangrene (20 sources) 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; Translations: [Atherosclerosis of [place] arteries of extremities with gangrene, right leg] Onset: 10-18-2023 Resolved: 02-28-2024 Chronic Genitourinary symptoms and ill-defined conditions (20 sources) Retention of urine; Translations: [Retention of urine, unspecified] Onset: 11-23-2022 Episodic Glaucoma (1 source) Glaucoma 01-28-2025 Chronic Gout and other crystal arthropathies (20 sources) Gout; Translations: [Gout, unspecified] Onset: 02-15-2022 Resolved: 02-15-2022 Chronic Headache; including migraine (7 sources) Migraine; Translations: [Migraine, unspecified, not intractable, [...] acute osteomyelitis, right ankle and foot] Onset: 09-30-2023 10-06-2023 Chronic Inflammatory conditions of male genital organs (20 sources) Orchitis; Translations: [Orchitis] Onset: 11-23-2022 Episodic Nonspecific chest pain (20 sources) Chest [...] 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 Simon Hernández Vascular Other bone [...] Resolved: 02-15-2022 Episodic Other connective tissue disease (19 sources) 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 Other connective tissue disease (1 source) Pain in left arm Episodic Other connective tissue disease (1 source) Pain in left arm 01-28-2025 Episodic Comment on above: Outside Source Comme nt: Comment on above: 2/2 to fall. No fracture. Other diseases of bladder and urethra (7 sources) Mass of urinary bladder; Translations: [Other specified disorders of bladder] 01-28-2025 Chronic Other diseases of bladder and urethra (1 source) Other specified disorders of bladder Chronic Other diseases of bladder and urethra (1 source) Neurogenic bladder 09-27-2024 Chronic Other diseases of kidney and ureters [...] lower limbs] Chronic Other nervous system disorders (7 sources) Carpal tunnel syndrome of right wrist; Translations: [Carpal tunnel syndrome, right upper limb] Onset: 10-02-2020 12-17-2023 Chronic Other nervous system disorders (7 sources) Polyneuropathy; Translations: [Polyneuropathy, unspecified] Onset: 10-27-2020 12-17-2023 Chronic Other nervous system disorders (20 sources) Carpal tunnel syndrome; Translations: [Carpal tunnel syndrome, unspecified upper limb] Onset: 10-06-2023 10-06-2023 Chronic Other nervous system disorders (7 sources) Polyneuropathy, unspecified; Translations: [Mononeuritis of unspecified site] Onset: 10-26-2024 08-30-2024 Chronic Other nervous system disorders (1 source) Other chronic pain; Translations: [Other chronic pain] Onset: 03-04-2024 Chronic Other nervous system disorders (1 source) Metabolic encephalopathy 01-28-2025 Chronic Other nervous system disorders (20 sources) [...] skin sensation] Onset: 08-11-2024 08-11-2024 Episodic Other non-traumatic joint disorders (1 source) Hip pain 01-28-2025 Episodic Other nutritional; endocrine; and metabolic disorders [...] Chronic Other nutritional; endocrine; and metabolic disorders (10 sources) Hypomagnesemia; Translations: [Hypomagnesemia] 05-07-2024 Chronic Other nutritional; endocrine; and metabolic disorders (16 sources) Hypomagnesemia; Translations: [Disorders of magnesium metabolism] Onset: 08-11-2024 05-07-2024 Chronic Other nutritional; endocrine; and metabolic disorders (9 sources) Hypocalcemia; Translations: [Hypocalcemia] 08-11-2024 Chronic Other [...] claudication; Translations: [Peripheral vascular disease, unspecified] Onset: 03-03-2023 04-05-2024 Chronic Pneumonia (except that caused by tuberculosis or sexually transmitted disease) (1 source) Pneumonia 01-28-2025 Episodic Residual codes; unclassified (18 sources) Sleep apnea; Translations: [Sleep apnea, unspecified] Onset: 08-04-2014 10-30-2023 Chronic Residual codes; unclassified (20 sources) Peripheral edema; [...] at age of 45 Residual codes; unclassified (20 sources) Tobacco user; Translations: [Tobacco use] Onset: 02-15-2024 01-16-2013 Episodic Comment on above: Added secondary to s ocial history documentation. Residual codes; unclassified (2 sources) Other specified postprocedural states; Translations: [Other specified postprocedural states] Onset: 11-07-2023 Episodic Residual codes; unclassified (1 source) Pain, unspecified; Translations: [Pain, unspecified] Onset: 03-12-2024 Episodic Residual codes; unclassified (12 sources) Noncompliance with medication regimen; Translations: [Noncompliance with medication regimen] 08-30-2024 Episodic Residual codes; unclassified (1 source) H/O Spinal surgery 01-28-2025 Episodic Residual codes; unclassified (1 source) History of colonoscopy 01-28-2025 Episodic Spondylosis; intervertebral disc disorders; other back problems (20 sources) Degeneration of lumbar intervertebral disc; Translations: [Other intervertebral disc degeneration, lumbar region] Chronic Substance-related disorders (20 sources) Smoker; Translations: [Nicotine dependence, unspecified, uncomplicated] Onset: 10-06-2023 07-10-2014 Chronic Comment on above: Added secondary to d ocumentation in Social History. Unclassified (1 source) 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 ([facility]) [I70.261] Onset: 11-07-2023 Unclassified (1 source) New Patient Onset: 10-18-2023 Unclassified (1 source) 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 Onset: 11-30-2023 Unclassified (4 sources) Patient encounter status 05-27-2024 Unclassified (1 source) Chronic ulcer of right foot 01-28-2025 Unclassified (1 source) Chronic ulcer of right heel 01-28-2025 Unclassified (1 source) Long-term current use of drug therapy 09-27-2024 Unclassified (1 source) Peripheral arterial disease Onset: 10-30-2023 01-28-2025 Unclassified (1 source) Pressure injury of right ankle stage III Onset: 11-08-2023 01-28-2025 Unclassified (1 source) Puncture wound of right foot Onset: 09-30-2023 01-28-2025 Past or Other Problems Problem Classification Problem Date Documented Da te Episodic/Chronic Acute and unspecified renal failure (18 sources) Acute renal failure syndrome; Translations: [Acute kidney failure, unspecified] Onset: 03-03-2023 08-11-2024 Episodic Comment on above: Outside Source Comme nt: Comment on above: on CKD3b Cardiac dysrhythmias (14 sources) Palpitations; Translations: [Palpitations] Onset: 03-27-2023 03-27-2023 Episodic Chronic ulcer of skin (19 sources) Pressure ulcer of right ankle, stage [...] unspecified; Translations: [Anemia, unspecified] Onset: 03-04-2024 Episodic Deficiency and other anemia (20 sources) Anemia; Translations: [Anemia, unspecified] Onset: 02-12-2024 03-03-2024 Episodic Essential hypertension (20 sources) Hypertensive disorder; Translations: [Essential (primary) hypertension] Onset: 11-05-2013 Resolved: 01-01-2024 04-02-2018 Chronic Fluid and electrolyte disorders (20 sources) Hypokalemia; Translations: [Hypokalemia] Onset: 03-03-2023 08-11-2024 Episodic Headache; including migraine (5 sources) Headache; including migraine Malaise and fatigue (1 source) Asthenia Onset: 03-03-2023 01-28-2025 Episodic Mood disorders (16 sources) Mood disorders Onset: 11-07-2023 11-07-2023 Nausea and vomiting (20 sources) Nausea and vomiting; Translations: [Nausea with vomiting, unspecified] Onset: 12-09-2023 01-28-2025 Episodic Neoplasms of unspecified nature or uncertain behavior (1 source) Neoplasm of uncertain behavior of skin Onset: 02-15-2022 Resolved: 02-15-2022 Episodic Other aftercare (12 sources) Follow-up orthopedic assessment; Translations: [Encounter for orthopedic aftercare following surgical amputation] Onset: 02-28-2024 02-28-2024 Episodic Other circulatory disease (12 sources) Low blood pressure; Translations: [Hypotension, unspecified] Onset: 01-01-2024 01-01-2024 Episodic Other circulatory disease (1 source) Poor peripheral circulation; Translations: [Other specified symptoms and signs involving the circulatory and respiratory systems] 10-18-2023 Episodic Other circulatory disease (1 source) Critical lower limb ischemia Onset: 10-18-2023 01-28-2025 Episodic Comment on above: Outside Source Comme nt: Last Assessment & Plan: Right below-knee amputation. Will do it here at [place]. Other connective tissue disease (1 source) Pain in left leg Onset: 10-08-2021 Resolved: 10-08-2021 Episodic Other connective tissue disease (20 sources) Fibromyalgia; Translations: [Fibromyalgia] Onset: 10-30-2023 01-03-2024 Episodic Other connective tissue disease (20 sources) Muscle weakness; Translations: [Muscle weakness (generalized)] Onset: 10-30-2023 10-30-2023 Episodic Other connective tissue disease (11 sources) Spasm; Translations: [Other muscle spasm] Onset: [...] Onset: 10-12-2021 Episodic Other lower respiratory disease (9 sources) Dyspnea; Translations: [Shortness of breath] Onset: 01-01-2024 01-17-2024 Episodic Other lower respiratory disease (1 source) Shortness of breath; Translations: [Shortness of breath] Onset: 01-01-2024 Episodic Other male genital disorders (19 sources) Disorder of male genital organ; Translations: [Hydrocele, unspecified] Onset: 10-30-2023 10-30-2023 Episodic Other nervous system disorders (7 sources) Pain in limb - multiple; Translations: [Paresthesia of skin] Onset: 09-22-2020 12-17-2023 Episodic Other nervous system disorders (7 sources) Paresthesia of lower extremity; Translations: [Paresthesia [...] 07-27-2021 Resolved: 07-27-2021 Episodic Residual codes; unclassified (20 sources) Edema of lower extremity; Translations: [Localized edema] Onset: 11-10-2023 07-12-2023 Episodic Residual codes; unclassified (1 source) Insomnia, unspecified Onset: 07-27-2021 Resolved: 07-27-2021 Episodic Residual codes; unclassified (20 sources) Altered mental status; Translations: [Altered mental status, unspecified] Onset: 03-15-2024 03-08-2024 Episodic Residual codes; unclassified (9 sources) Altered mental status, unspecified; Translations: [Altered mental status] Onset: 03-08-2024 03-08-2024 Episodic Residual codes; unclassified (1 source) Disorientated; Translations: [Disorientation, unspecified] 03-15-2024 Episodic Residual codes; unclassified (1 source) Chronic back pain Onset: 03-15-2024 01-28-2025 Episodic Screening and history of mental health and substance abuse codes (16 sources) Ex-smoker; Translations: [Personal history of tobacco use] Onset: 10-24-2023 10-24-2023 Episodic Comment on above: qauit 07/2020; Septicemia (except in labor) (20 sources) Sepsis, unspecified organism; Translations: [Bacterial sepsis] Onset: 03-03-2023 Resolved: 10-10-2023 Episodic Skin and subcutaneous tissue infections (20 sources) Abscess of right foot; Translations: [Cutaneous abscess of right foot] Onset: 08-04-2023 Resolved: 02-28-2024 10-06-2023 Episodic Spondylosis; intervertebral disc disorders; other back problems (20 sources) Neck pain; Translations: [Cervicalgia] Onset: 10-30-2023 01-03-2024 Episodic Syncope (20 sources) Syncope; Translations: [Syncope and collapse] Onset: 03-04-2024 03-03-2024 Episodic Unclassified (1 source) History of amputation of right leg through tibia and fibula 03-21-2024 Urinary tract infections (2 sources) Urinary tract infection, site not specified; Translations: [Acute urinary tract infection] Onset: 03-03-2023 Episodic Comment on above: Outside Source Comme nt: Comment on above: Klebsiella Oxytoca Results Test Name Value Interpretation Reference Range Facility NM Heart Perfusion W stress and W radionuclide Sachin 02-05-2025 Normal Lexiscan Myov iew cardiac perfusion stress test. No evidence of ischemia or myocardial infarction by perfusion imaging. Normal left ventricular systolic function, ejection fraction 61%. When compared to a study from 2022, no significant interval changes were seen. Signed by: Pascale Arnold 02/05/2025 6:05 PM Dictation workstation: [id number] [facility] Interpreted By: Pascale Sweeney and Giannuzzi Michael STUDY: MYOCARDIAL PERFUSION STRESS TEST WITH LEXISCAN Performing facility: [facility], [address] [place] [address], [address], [place] [address] [facility] Provider: Pascale Arnold MD, [facility] PCP: Dr. Wm Lynch Supervising provider: Lui Schmidt DO, [facility] INDICATION: Signs/Symptoms: ,R07.9 Chest pain, unspecified HISTORY: Gender: M; Age: 59 y/o ; Height: HT 182.9 cm cm; Weight: WT 95.709 kg kg. Chest Pain; CAD; High Cholesterol; Diabetes; SOB; COPD; Quit smoking 4 years ago. Cardiac catheterization on 2017. PTCA on 2017. COMPARISON: Previous nuclear testing completed at [facility]. ACCESSION NUMBER(S): [id number] ORDERING CLINICIAN: PASCALE ARNOLD TECHNIQUE: ONE DAY protocol. Stress injection: Date:02-05-25, [...] There was no evidence of attenuation artifact. Pascale Mcmullen M D - 02/05/2025 Interpreted By: Pascale Arnold and Giannuzzi Michael STUDY: MYOCARDIAL PERFUSION STRESS TEST WITH LEXISCAN Performing facility: [facility], [address] [place] [address], [address], [place] [address] [facility] Provider: Pascale Arnold MD, [facility] PCP: Dr. Wm Lynch Supervising provider: Lui Schmidt DO, [facility] INDICATION: Signs/Symptoms: ,R07.9 Chest pain, unspecified HISTORY: Gender: M; Age: 59 y/o ; Height: HT 182.9 cm cm; Weight: WT 95.709 kg kg. Chest Pain; CAD; High Cholesterol; Diabetes; SOB; COPD; Quit smoking 4 years ago. Cardiac catheterization on 2017. PTCA on 2017. COMPARISON: Previous nuclear testing completed at [facility]. ACCESSION NUMBER(S): [id number] ORDERING CLINICIAN: PASCALE ARNOLD TECHNIQUE: ONE DAY protocol. Stress injection: Date:02-05-25, [...] significant interval changes were seen. Signed by: Pascale Arnold 02/05/2025 6:05 PM Dictation workstation: [id number] [facility] Work Phone: [facility] Work Phone: Radiology Study observation (narrative) [facility] Work Phone: NUCLEAR STRESS TESTon 2024 NUCLEAR STRESS TEST Interpreted By: Pascale Sweeney, and Orquidea Fernando STUDY: MYOCARDIAL PERFUSION STRESS TEST WITH LEXISCAN Performing facility: [facility], [address] [place] [address], [address], [address] Provider: Pascale Arnold MD, FACC PCP: Dr. Wm Lynch Supervising provider: Lui Schmidt DO, FAC INDICATION: Signs/Symptoms: ,R07.9 Chest pain, unspecified HISTORY: Gender: M; Age: 59 y/o ; Height: HT 182.9 cm cm; Weight: WT 95.709 kg kg. Chest Pain; CAD; High Cholesterol; Diabetes; SOB; COPD; Quit smoking 4 years ago. Cardiac catheterization on 2017. PTCA on 2017. COMPARISON: Previous nuclear testing completed at [facility]. ACCESSION NUMBER(S): [id number] ORDERING CLINICIAN: PASCALE ARNOLD TECHNIQUE: ONE DAY protocol. Stress injection: Date:02-05-25, [...] significant interval changes were seen. Signed by: Pascale Arnold 02/05/2025 6:05 PM Dictation workstation: [id number] [facility] Reminderson 02-04-2025 Reminders Reminders From: Clair Valverde To: EU - Administrative; Sent: 07/05/2024 09:08:37 EST Show up: 02/02/2025 10:08:00 EDT Subject: 1 yr f/u w/psa Due Date/Time: 05/27/2025 09:08:00 EST Reminder/Recall Pt needs scheduled for 1yr f/u w/psa w/PRW in May 2025. LVm w/ patient stating they needed to call and get appointment scheduled. Normal [facility] A1C with Estimated Average [facility] 10-26-2024 Glucose [Mass/Vol] 192 mg/dL Normal [facility] Comment on above: Result Comment: PERF ORMED BY:[id number] [place], [place] [id number] MEDICAL DIRECTORBREANNE RUTHERFORD M.D. Performed By: #### A 1C [facility] ####[facility] [place] [address] [facility] HbA1c (Bld) [Mass fraction] 8.3 % High 4.3-5.6 [facility] Comment on above: Result Comment: Incr eased risk for diabetes: 5.7 - 6.4 diabetes: >6.4 glycemic control for adults with diabetes: <7.0 Performed By: #### A 1C [facility] ####[facility] [id number] [place] [address] [facility] Alanine aminotransferase [En zymatic activity/volume] in Serum or PlasmaOrdered By: Teresa Lynch on 10-26-2024 ALT [Catalytic activity/Vol] Alanine aminotransferase [Enzymatic activity/volume] in Serum or Plasma [facility] Albumin [Mass/volume] in Ser um or Plasma by Bromocresol green (BCG) dye binding methoOrdered By: Teresa Lynch on 10-26-2024 Albumin BCG dye [Mass/Vol] Albumin [Mass/volume] in Serum or Plasma by Bromocresol green (BCG) dye binding metho 3.5-5.7 [facility] Alkaline phosphatase [Enzyma tic activity/volume] in Serum or PlasmaOrdered By: Teresa Lynch on 10-26-2024 ALP [Catalytic activity/Vol] Alkaline phosphatase [Enzymatic activity/volume] in Serum or Plasma High 34-104 [facility] Anisocytosis LM Ql (Bld)Orde red By: Maurice Francis on 10-26-2024 Anisocytosis Ql (Bld) Anisocytosis [Pres ence] in Blood by Light microscopy [facility] Appearance of UrineOrdered B y: Amina Fagan on 10-26-2024 Appearance (U) Urine appearance Clear [facility] Aspartate aminotransferase [ Enzymatic activity/volume] in Serum or PlasmaOrdered By: Teresa Lynch on 10-26-2024 AST [Catalytic activity/Vol] Aspartate aminotransferase [Enzymatic activity/volume] in Serum or Plasma 13-39 [facility] Basophils Auto (Bld) [#/Vol] Ordered By: Maurice Francis on 10-26-2024 Basophils (Bld) [#/Vol] Automated basophil count 0.0-0.2 [facility] Basophils/100 WBC Auto (Bld) Ordered By: aMurice Francis on 10-26-2024 Basophils/100 WBC (Bld) Automated basophil % . [facility] Bilirubin Test strip Ql (U)O rdered By: Amina Fagan on 10-26-2024 Bilirubin Ql (U) Bilirubin.total [Presence] in Urine by Test strip Negative [facility] Bilirubin.total [Mass/volume ] in Serum or PlasmaOrdered By: Teresa Lynch on 10-26-2024 Bilirubin [Mass/Vol] Bilirubin.total [Mass/volume] in Serum or Plasma 0.3-1.0 [facility] Blood estimated average gluc ose determination by estimation from glycated hemoglobinOrdered By: Teresa Lynch on 10-26-2024 Average glucose Estimated from glycated hemoglobin (Bld) [Mass/Vol] Glucose mean value [Mass/volume] in Blood Estimated from glycated hemoglobin [facility] Calcium [Mass/volume] in Ser um or PlasmaOrdered By: Teresa Lynch on 10-26-2024 Calcium [Mass/Vol] Calcium [Mass/volume ] in Serum or Plasma 8.6-10.3 [facility] Carbon dioxide, total [Moles /volume] in Serum or PlasmaOrdered By: Teresa Lynch on 10-26-2024 CO2 [Moles/Vol] Carbon dioxide, tota l [Moles/volume] in Serum or Plasma 21.0-31.0 [facility] Chloride [Moles/volume] in S ilia or PlasmaOrdered By: Teresa Lynch on 10-26-2024 Chloride [Moles/Vol] Chloride [Moles/vol ume] in Serum or Plasma 98-107 [facility] Cholesterol [Mass/volume] in Serum or PlasmaOrdered By: Teresa Lynch on 10-26-2024 Cholesterol [Mass/Vol] Cholesterol [Mass /volume] in Serum or Plasma Low 140-200 [facility] Comment on above: Chol less than 200 m g/dl low riskChol 201-239 mg/dl borderline riskChol 240 mg/dl and greater high risk Cholesterol in HDL [Mass/vol ume] in Serum or PlasmaOrdered By: Teresa Lynch on 10-26-2024 Cholesterol in HDL [Mass/Vol] Serum or plasma high density lipoprotein (HDL) cholesterol measurement Low 23-92 [facility] Comment on above: HDL CHOL ATP-III CLA SSIFICATION Cardiovascular RiskHDL > or equal to 60 mg/dL LOWHDL < 40 mg/dL HIGH Cholesterol in LDL Calc [Mas s/Vol]Ordered By: Teresa Lynch on 10-26-2024 Cholesterol in LDL [Mass/Vol] Cholesterol in LDL [Mass/volume] in Serum or Plasma by calculation 0 [facility] Comment on above: LDL ATP III CLASSIFI CATIONLDL less than 100 mg/dL OptimalLDL 100-129 mg/dL Near or above optimalLDL 130-159 mg/dL Borderline highLDL 160-189 mg/dL HighLDL greater than 189 mg/dL Very high Cholesterol in LDL [Mass/vol ume] in Serum or PlasmaOrdered By: Teresa Lynch on 10-26-2024 Cholesterol in LDL [Mass/Vol] Cholesterol in LDL [Mass/volume] in Serum or Plasma 0 [facility] Comment on above: LDL ATP III CLASSIFI CATIONLDL less than 100 mg/dL OptimalLDL 100-129 mg/dL Near or above optimalLDL 130-159 mg/dL Borderline highLDL 160-189 mg/dL HighLDL greater than 189 mg/dL Very high Cholesterol in VLDL Calc [Ma ss/Vol]Ordered By: Teresa Lynch on 10-26-2024 Cholesterol in VLDL [Mass/Vol] Cholesterol in VLDL [Mass/volume] in Serum or Plasma by calculation [facility] Comment on above: Test not performed Color Auto (U)Ordered By: Norris Fagan on 10-26-2024 Color (U) Color of Urine by Auto Yellow [facility] Comprehensive Metabolic Pane guy 10-26-2024 Albumin [Mass/Vol] 4.3 g/dL Normal 3.5-5.7 [facility] Comment on above: Performed By: #### C MP, RENAL ####[facility] [id number] [place] [address] [facility] Albumin/Globulin [Mass ratio] 1.7 {ratio} Normal [facility] Comment on above: Performed By: #### C MP, RENAL ####[facility] [id number] [place] [address] [facility] ALP [Catalytic activity/Vol] 132 U/L High 34-104 [facility] Comment on above: Performed By: #### C MP, RENAL ####[address] [address] [place] [address] [facility] ALT [Catalytic activity/Vol] 16 U/L Normal 7-52 [facility] Comment on above: Performed By: #### C MP, RENAL ####[address] [place] [address] [facility] Anion gap [Moles/Vol] 16.4 mmol/L High 6.0-15.0 Th [facility] Comment on above: Performed By: #### C MP, RENAL ####[address] [address] [facility] AST [Catalytic activity/Vol] 13 U/L Normal 13-39 [facility] Comment on above: Performed By: #### C MP, RENAL ####[address] [address] [facility] Bilirubin [Mass/Vol] 0.4 mg/dL Normal 0.3-1.0 [facility] Comment on above: Performed By: #### C MP, RENAL ####[address] [address] [facility] Calcium [Mass/Vol] 9.4 mg/dL Normal 8.6-10.3 [facility] Comment on above: Performed By: #### C MP, RENAL ####[address] [address] [facility] Chloride [Moles/Vol] 98 mmol/L Normal 98-107 [facility] Comment on above: Performed By: #### C MP, RENAL ####[address] [address] [facility] CO2 [Moles/Vol] 27.2 mmol/L Normal 21.0-31.0 [facility] Comment on above: Performed By: #### C MP, RENAL ####[address] [address] [facility] Creatinine [Mass/Vol] 2.36 mg/dL High 0.70-1.30 [facility] Comment on above: Performed By: #### C MP, RENAL ####[place] [address] [facility] Estimated GFR 30.940 mL/Min Normal [facility] Comment on above: Performed By: #### C MP, RENAL ####[place] [id number] [facility] Globulin (S) [Mass/Vol] 2.6 g/dL Normal [facility] Comment on above: Performed By: #### C MP, RENAL ####[place] [id number] [facility] Glucose [Mass/Vol] 264 mg/dL High 70-100 [facility] Comment on above: Result Comment: [facility] Glucose Reference Range is dependent on time and content of last meal. Glucose of more than 200 mg/dL in a nonstressed, ambulatory subject supports the diagnosis of Diabetes Mellitus. ADA recommended reference range Performed By: #### C MP, RENAL ####[address] Potassium [Moles/Vol] 4.6 mmol/L Normal 3.5-5.1 [facility] Comment on above: Performed By: #### C MP, RENAL ####[address] Protein [Mass/Vol] 6.9 g/dL Normal 6.4-8.9 [facility] Comment on above: Performed By: #### C MP, RENAL ####[address] Sodium [Moles/Vol] 137 mmol/L Normal 136-145 [facility] Comment on above: Performed By: #### C MP, RENAL ####[place] [id number] [facility] Urea nitrogen [Mass/Vol] 33 mg/dL High 7-25 [facility] Comment on above: Performed By: #### C MP, RENAL ####[place] [id number] [facility] Creatinine [Mass/volume] in Serum or PlasmaOrdered By: Teresa Lynch on 10-26-2024 Creatinine [Mass/Vol] Creatinine [Mass/v olume] in Serum or Plasma High 0.70-1.30 [facility] Creatinine [Mass/volume] in UrineOrdered By: Amina Fagan on 10-26-2024 Creatinine (U) [Mass/Vol] Creatinine [Mass/volume] in Urine [facility] Comment on above: No reference range e stablished Eosinophils Auto (Bld) [#/Vo l]Ordered By: Maurice Francis on 10-26-2024 Eosinophils (Bld) [#/Vol] Automated eosinophil count 0.0-0.45 [facility] Eosinophils/100 WBC Auto (Bl d)Ordered By: Maurice Francis on 10-26-2024 Eosinophils/100 WBC (Bld) Automated eosinophil % . [facility] Erythrocyte distribution wid th Auto (RBC) [Ratio]Ordered By: Maurice Francis on 10-26-2024 Erythrocyte distribution width (RBC) [Ratio] Erythrocyte distribution width [Ratio] by Automated count High 12.0-14.8 [facility] Erythrocyte morphology findi ng [Identifier] in BloodOrdered By: Maurice Francis on 10-26-2024 RBC morphology finding Nom (Bld) RBC morphology [facility] Ferritinon 10-26-2024 Ferritin [Mass/Vol] 8.3 ng/mL Low 23.9-336.2 [facility] Comment on above: Performed By: #### F ER, [id number], URIC, PTH, FE and TIBC ####[facility] [id number] [place] [address] [facility] Ferritin [Mass/volume] in Se rum or PlasmaOrdered By: Amina Fagan on 10-26-2024 Ferritin [Mass/Vol] Ferritin [Mass/volum e] in Serum or Plasma Low 23.9-336.2 [facility] Folate [Mass/volume] in Seru m or PlasmaOrdered By: Amina Fagan on 10-26-2024 Folate [Mass/Vol] Folate [Mass/volume] in Serum or Plasma >5.9 [facility] Comment on above: Folate reference ran ge: >5.9 ng/mlThe WHO technical consultation on folate and vitamin [id number] has determined that folate concentrations lessthan 4 ng/ml are considered deficient. Globulin Calc (S) [Mass/Vol] Ordered By: Teresa Lynch on 10-26-2024 Globulin (S) [Mass/Vol] Serum globulin measurement by calculation (mass/volume) [facility] Glucose [Mass/volume] in Ser um or PlasmaOrdered By: Teresa Lynch on 10-26-2024 Glucose [Mass/Vol] Glucose [Mass/volume ] in Serum or Plasma High 70-100 [facility] Comment on above: ADA recommended refe [...] in Urine by Test strip High Normal [facility] Hematocrit Auto (Bld) [Volum e fraction]Ordered By: Maurice Francis on 10-26-2024 Hematocrit (Bld) [Volume fraction] Hematocrit [Volume Fraction] of Blood by Automated count 38.8-50.0 [facility] Hemoglobin A1c/Hemoglobin.to roberto carlos in BloodOrdered By: Teresa Lynch on 10-26-2024 HbA1c (Bld) [Mass fraction] Hemoglobin A1c percentage High 4.3-5.6 [facility] Comment on above: Increased risk for d iabetes: 5.7 - 6.4diabetes: >6.4glycemic control for adults with diabetes: <7.0 Hemoglobin Test strip Ql (U) Ordered By: Amina Fagan on 10-26-2024 Hemoglobin Ql (U) Hemoglobin [Presence ] in Urine by Test strip Negative [facility] Hemoglobin [Mass/volume] in BloodOrdered By: Maurice Francis on 10-26-2024 Hemoglobin (Bld) [Mass/Vol] Hemoglobin [Mass/volume] in Blood 13.0-17.0 [facility] Iron [Mass/volume] in Serum or PlasmaOrdered By: Amina Fagan on 10-26-2024 Iron [Mass/Vol] Iron [Mass/volume] i n Serum or Plasma Low 50-212 [facility] Iron and TIBC Profileon 10-04 % Iron Saturation 6.9 % Low 20-50 [facility] Comment on above: Performed By: #### F ER, [id number], URIC, PTH, FE and TIBC ####[address] [place] [address] [facility] Iron [Mass/Vol] 31 ug/dL Low 50-212 [facility] Comment on above: Performed By: #### F ER, [id number], URIC, PTH, FE and TIBC ####[address] [place] [address] [facility] Total Iron Binding Capacity 449 ug/dL Normal 255-450 [facility] Comment on above: Performed By: #### F ER, [id number], URIC, PTH, FE and TIBC ####[address] [address] [facility] Transferrin [Mass/Vol] 321 mg/dL Normal 203-[address] [facility] Comment on above: Performed By: #### F ER, [id number], URIC, PTH, FE and TIBC ####[address] [place] [address] [facility] Ketones Test strip Ql (U)Ord ered By: Amina Fagan on 10-26-2024 Ketones Ql (U) Ketones [Presence] i n Urine by Test strip Negative [facility] LDL Cholesterol Measuredon 0 10-26-2024 LDL Cholesterol Measured 36 mg/dL Normal 0-100 [facility] Comment on above: Result Comment: LDL ATP III CLASSIFICATION LDL less than 100 mg/dL Optimal LDL 100-129 mg/dL Near or above optimal LDL 130-159 mg/dL Borderline high LDL 160-189 mg/dL High LDL greater than 189 mg/dL Very high Performed By: #### L DLD, MG, URIC, TSH3, [id number], PSAS, LIPID ####[address] [place] [address] [facility] Leukocyte esterase [Presence ] in Urine by Test stripOrdered By: Amina Fagan on 10-26-2024 Leukocyte esterase Test strip Ql (U) Leukocyte esterase [Presence] in Urine by Test strip Negative [facility] Leukocytes [#/volume] correc jorge for nucleated erythrocytes in Blood by Automated counOrdered By: Maurice Francis on 10-26-2024 WBC corrected for nucl RBC Auto (Bld) [#/Vol] Leukocytes [#/volume] corrected for nucleated erythrocytes in Blood by Automated coun 4.1-10.5 [facility] Lipid Panelon 10-26-2024 Cholesterol [Mass/Vol] 108 mg/dL Low 140-200 Th [facility] Comment on above: Result Comment: Chol less than 200 mg/dl low risk Chol 201-239 mg/dl borderline risk Chol 240 mg/dl and greater high risk Performed By: #### L DLD, MG, URIC, TSH3, [id number], PSAS, LIPID ####[place] [address] Cholesterol in HDL [Mass/Vol] 21 mg/dL Low 23-92 [facility] Comment on above: Result Comment: HDL CHOL ATP-III CLASSIFICATION Cardiovascular Risk HDL > or equal to 60 mg/dL LOW HDL < 40 mg/dL HIGH Performed By: #### L DLD, MG, URIC, TSH3, [id number], PSAS, LIPID ####[address] [place] [id number] [facility] Cholesterol.total/Chol esterol in HDL [Mass ratio] 5.1 {ratio} Normal <5.0 [facility] Comment on above: Performed By: #### L DLD, MG, URIC, TSH3, [id number], PSAS, LIPID ####[address] [place] [id number] [facility] LDL Cholesterol,Calculated <10 Normal 0-100 [facility] Comment on above: Result Comment: LDL ATP III CLASSIFICATION LDL less than 100 mg/dL Optimal LDL 100-129 mg/dL Near or above optimal LDL 130-159 mg/dL Borderline high LDL 160-189 mg/dL High LDL greater than 189 mg/dL Very high Performed By: #### L DLD, MG, URIC, TSH3, [id number], PSAS, LIPID ####[facility] [id number] Triglyceride w/Reflex 529 mg/dL High 0-149 [facility] Comment on above: Result [...] By: #### L DLD, MG, URIC, TSH3, [id number], PSAS, LIPID ####[place] [address] VLDL CHOLESTEROL Not performed Normal [facility] Comment on above: Performed By: #### L DLD, MG, URIC, TSH3, [id number], PSAS, LIPID ####[facility] Lymphocytes Auto (Bld) [#/Vo l]Ordered By: Maurice Reinar on 10-26-2024 Lymphocytes (Bld) [#/Vol] Lymphocytes [#/volume] in Blood by Automated count 1.00-4.8 [facility] Lymphocytes/100 WBC Auto (Bl d)Ordered By: Maurice Tito on 10-26-2024 Lymphocytes/100 WBC (Bld) Lymphocytes/100 leukocytes in Blood by Automated count . [facility] MCH Auto (RBC) [Entitic mass ]Ordered By: Maurice Reinar on 10-26-2024 MCH (RBC) [Entitic mass] MCH [Entitic mass] by Automated count Low 27.5-35.2 [facility] MCHC Auto (RBC) [Mass/Vol]Or dered By: Maurice Tito on 10-26-2024 MCHC (RBC) [Mass/Vol] MCHC [Mass/volume] by Automated count 32.5-35.6 [facility] MCV Auto (RBC) [Entitic vol] Ordered By: Maurice Swansondir on 10-26-2024 MCV (RBC) [Entitic vol] MCV [Entitic volume] by Automated count Low 83.5-101 [facility] Magnesiumon 10-26-2024 Magnesium [Mass/Vol] 1.8 mg/dL Low 1.9-2.7 [facility] Comment on above: Performed By: #### L DLD, MG, URIC, TSH3, [id number], PSAS, LIPID ####[facility] [place] [address] [facility] Magnesium [Mass/volume] in S ilia or PlasmaOrdered By: Teresa Lynch on 10-26-2024 Magnesium [Mass/Vol] Magnesium [Mass/vol ume] in Serum or Plasma Low 1.9-2.7 [facility] Microalbumin [Mass/volume] i n UrineOrdered By: Teresa Lynch on 10-26-2024 Albumin DL <= 20 mg/L (U) [Mass/Vol] Microalbumin [Mass/volume] in Urine 0.0-1.8 [facility] Microalbumin, Urine (Random) on 10-26-2024 Albumin DL <= 20 mg/L (U) [Mass/Vol] 0.9 mg/dL Normal 0.0-1.8 [facility] Comment on above: Result Comment: PERF ORMED BY:[address] [place], [place] [id number] MEDICAL DIRECTORBREANNE RUTHERFORD M.D. Performed By: #### U RMA ####[address] [address] [facility] Microcytes LM Ql (Bld)Ordere d By: Maurice Francis on 10-26-2024 Microcytes Ql (Bld) Microcytes [Presence ] in Blood by Light microscopy [facility] Monocytes Auto (Bld) [#/Vol] Ordered By: Maurice Tito on 10-26-2024 Monocytes (Bld) [#/Vol] Automated blood monocyte count 0.0-0.8 [facility] Monocytes/100 WBC Auto (Bld) Ordered By: Maurice Tito on 10-26-2024 Monocytes/100 WBC (Bld) Automated monocyte % . [facility] Neutrophils Auto (Bld) [#/Vo l]Ordered By: Maurice Francis on 10-26-2024 Neutrophils (Bld) [#/Vol] Neutrophils [#/volume] in Blood by Automated count 1.8-7.7 [facility] Neutrophils/100 WBC Auto (Bl d)Ordered By: Maurice Francis on 10-26-2024 Neutrophils/100 WBC (Bld) Automated neutrophil % . [facility] Nitrite Test strip Ql (U)Ord ered By: Amina Fagan on 10-26-2024 Nitrite Ql (U) Nitrite [Presence] i n Urine by Test strip Negative [facility] No Panel InformationOrdered By: Teresa Lynch on 10-26-2024 Estimated GFR (CKD-EPI) 30.940 mL/Min [facility] Creatinine Clearance (Chem N/A [facility] 30.940 mL/Min [facility] N/A [facility] Nucleated erythrocytes [Pres ence] in Blood by Automated countOrdered By: Maurice Francis on 10-26-2024 Nucleated RBC Auto Ql (Bld) Nucleated erythrocytes [Presence] in Blood by Automated count 0-0.5 [facility] PSA Screen (Yearly Only)on 0 10-26-2024 PSA Screen (Yearly Only) 1.160 ng/mL Normal 0.000-4.00 0 [facility] Comment on above: Result Comment: Josseline al tumor marker results determined by assays using different manufacturers or methods may not be comparable. [facility] balloon design printer and method: [employer] DXI, CHEMILUMINESCENT IMMUNOASSAY.PERFORMED BY:[facility] [place], [place] [id number] MEDICAL DIRECTORBREANNE RUTHERFORD M.D. Performed By: #### L DLD, MG, URIC, TSH3, [id number], PSAS, LIPID ####[facility] [place] [address] [facility] Parathyrin.intact [Mass/volu me] in Serum or PlasmaOrdered By: Amina Fagan on 10-26-2024 Parathyrin.intact [Mass/Vol] Parathyrin.intact [Mass/volume] in Serum or Plasma [facility] Parathyroid Hormone Intacton 10-26-2024 Parathyroid Hormone Intact 87.9 pg/mL Normal 12-88 [facility] Comment on above: Result Comment: PERF ORMED BY:[facility] [place], [place] [id number] MEDICAL DIRECTORBREANNE RUTHERFORD M.D. Performed By: #### F ER, [id number], URIC, PTH, FE and TIBC ####[facility] [place] [address] [facility] Phosphate [Mass/volume] in S ilia or PlasmaOrdered By: Teresa Lynch on 10-26-2024 Phosphate [Mass/Vol] Phosphate [Mass/vol ume] in Serum or Plasma 2.5-4.5 [facility] Platelet adequacy [Presence] in Blood by Light microscopyOrdered By: Maurice Francis on 10-26-2024 Platelets LM Ql (Bld) Platelet adequacy [Presence] in Blood by Light microscopy Normal [facility] Platelet mean volume Auto (B ld) [Entitic vol]Ordered By: Maurice Francis on 10-26-2024 Platelet mean volume (Bld) [Entitic vol] Platelet mean volume [Entitic volume] in Blood by Automated count 6.6-10.1 [facility] Platelet morphology finding [Identifier] in BloodOrdered By: Maurice Francis on 10-26-2024 Platelet morphology finding Nom (Bld) Platelet morphology finding [Identifier] in Blood [facility] Platelets Auto (Bld) [#/Vol] Ordered By: Maurice Francis on 10-26-2024 Platelets (Bld) [#/Vol] Platelets [#/volume] in Blood by Automated count 150-450 [facility] Platelets Large [Presence] i n Blood by Light microscopyOrdered By: Maurice Francis on 10-26-2024 Platelets Large LM Ql (Bld) Platelets Large [Presence] in Blood by Light microscopy [facility] Polychromasia [Presence] in Blood by Light microscopyOrdered By: Maurice Francis on 10-26-2024 Polychromasia LM Ql (Bld) Polychromasia [Presence] in Blood by Light microscopy [facility] Potassium [Moles/volume] in Serum or PlasmaOrdered By: Teresa Lynch on 10-26-2024 Potassium [Moles/Vol] Potassium [Moles/v olume] in Serum or Plasma 3.5-5.1 [facility] Prostate specific Ag [Mass/v olume] in Serum or PlasmaOrdered By: Teresa Lynch on 10-26-2024 Prostate specific Ag [Mass/Vol] Prostate specific Ag [Mass/volume] in Serum or Plasma 0.000-4.00 0 [facility] Comment on above: Serial tumor marker results determined by assays using different manufacturers or methods may not be comparable.[facility] balloon design printer and method:eYant[employer] IndustriesEL DXI, CHEMILUMINESCENT IMMUNOASSAY. Protein Creat Ratio Ur Rando mon 10-26-2024 Creatinine, Urine (Random) 62.00 mg/dL Normal [facility] Comment on above: Result Comment: No r eference range established Performed By: #### P JS UA ####[place] [id number] [facility] Protein (U) [Mass/Vol] 12 mg/dL High 0-9 Th e [facility] Comment on above: Performed By: #### P JS, UA ####[address] [address] [facility] Urine Protein/Creatinine Ratio 194 mg/g{Cre} Normal 0-200 [facility] Comment on above: Result Comment: PERF ORMED BY:[address] [place], [place] [phone] MEDICAL MARY RUTHERFORD M.D. Performed By: #### P JS, UA ####[address] [address] [facility] Protein Test strip (U) [Mass /Vol]Ordered By: Amina aFgan on 10-26-2024 Protein (U) [Mass/Vol] Protein [Mass/vol ume] in Urine by Test strip Negative [facility] Protein [Mass/volume] in Ser um or PlasmaOrdered By: Teresa Lynch on 10-26-2024 Protein [Mass/Vol] Protein [Mass/volume ] in Serum or Plasma 6.4-8.9 [facility] Protein [Mass/volume] in Uri neOrdered By: Amina Fagan on 10-26-2024 Protein (U) [Mass/Vol] Protein [Mass/vol ume] in Urine High 0-9 [facility] RBC Auto (Bld) [#/Vol]Ordere d By: Maurice Francis on 10-26-2024 RBC (Bld) [#/Vol] Erythrocytes [#/volu me] in Blood by Automated count 3.90-5.60 [facility] Renal Function Panelon 10-26 Phosphate [Mass/Vol] 3.9 mg/dL Normal 2.5-4.5 [facility] Comment on above: Result Comment: PERF ORMED BY:[address] [place], [place] [phone] MEDICAL DIRECTORBREANNE RUTHERFORD M.D. Performed By: #### C MP, RENAL ####[address] Scan and CBCon 10-26-2024 Anisocytosis Ql (Bld) Marked Normal [facility] Comment on above: Performed By: #### S CAN CBC ####[address] Basophils (Bld) [#/Vol] 0.1 10*3/uL Normal 0.0-0.2 [facility] Comment on above: Performed By: #### S CAN CBC ####[address] Basophils/100 WBC (Bld) 1.1 % Normal . [facility] Comment on above: Performed By: #### S CAN CBC ####[address] Eosinophils (Bld) [#/Vol] 0.3 10*3/uL Normal 0.0-0.45 [facility] Group Comment on above: Performed By: #### S CAN CBC ####[address] Eosinophils/100 WBC (Bld) 3.5 % Normal . [facility] Comment on above: Performed By: #### S CAN CBC ####[address] Erythrocyte distribution width (RBC) [Ratio] 21.5 % High 12.0-14.8 [facility] Comment on above: Performed By: #### S CAN CBC ####[address] Hematocrit (Bld) [Volume fraction] 42.7 % Normal 38.8-50.0 [facility] Comment on above: Performed By: #### S CAN CBC ####[address] Hemoglobin (Bld) [Mass/Vol] 14.3 g/dL Normal 13.0-17.0 [facility] Comment on above: Performed By: #### S CAN CBC ####[address] Large Platelets Slight Normal [facility] Comment on above: Result Comment: PERF ORMED BY:[address] [place], [place] [id number] MEDICAL DIRECTORBREANNE RUTHERFORD M.D. Performed By: #### S CAN CBC ####[address] Lymphocytes (Bld) [#/Vol] 1.6 10*3/uL Normal 1.00-4.8 [facility] Comment on above: Performed By: #### S CAN CBC ####[address] Lymphocytes/100 WBC (Bld) 17.7 % Normal . [facility] Comment on above: Performed By: #### S CAN CBC ####[address] MCH (RBC) [Entitic mass] 25.9 pg Low 27.5-35.2 [facility] Comment on above: Performed By: #### S CAN CBC ####[address] MCV (RBC) [Entitic vol] 77.1 fL Low 83.5-101 [facility] Comment on above: Performed By: #### S CAN CBC ####[address] Mean Corpuscular HGB Conc 33.6 g/dL Normal 32.5-35.6 [facility] Comment on above: Performed By: #### S CAN CBC ####[address] Microcytosis Slight Normal The [facility] Comment on above: Performed By: #### S CAN CBC ####[address] Monocytes (Bld) [#/Vol] 0.8 10*3/uL Normal 0.0-0.8 [facility] Comment on above: Performed By: #### S CAN CBC ####[address] Monocytes/100 WBC (Bld) 9.2 % Normal . [facility] Comment on above: Performed By: #### S CAN CBC ####[address] Neutrophils (Bld) [#/Vol] 6.0 10*3/uL Normal 1.8-7.7 [facility] Comment on above: Performed By: #### S CAN CBC ####[address] Neutrophils/100 WBC (Bld) 68.5 % Normal . [facility] Comment on above: Performed By: #### S CAN CBC ####[address] NRBC% 0.1 /100{WBC} Normal 0-0.5 The [facility] Comment on above: Performed By: #### S CAN CBC ####[address] Platelet Estimate Normal Normal Normal The [facility] Comment on above: Performed By: #### S CAN CBC ####[address] [place] [address] [facility] Platelet mean volume (Bld) [Entitic vol] 9.5 fL Normal 6.6-10.1 [facility] Comment on above: Performed By: #### S CAN CBC ####[address] [place] [address] [facility] Platelets (Bld) [#/Vol] 167 10*3/uL Normal 150-450 [facility] Comment on above: Performed By: #### S CAN CBC ####[address] [place] [address] [facility] Polychromasia Slight Normal The [facility] Comment on above: Performed By: #### S CAN CBC ####[address] [place] [address] [facility] RBC (Bld) [#/Vol] 5.54 10*6/uL Normal 3.90-5.60 The [facility] Comment on above: Performed By: #### S CAN CBC ####[address] [place] [address] [facility] WBC (Bld) [#/Vol] 8.8 10*3/uL Normal 4.1-10.5 The [facility] Comment on above: Performed By: #### S CAN CBC ####[address] [place] [address] [facility] Serum or plasma albumin/glob ulin mass ratioOrdered By: Teresa Lynch on 10-26-2024 Albumin/Globulin [Mass ratio] Serum or plasma albumin/globulin mass ratio [facility] Serum or plasma anion gap de terminationOrdered By: Teresa Lynch on 10-26-2024 Anion gap [Moles/Vol] Serum or plasma an ion gap determination High 6.0-15.0 [facility] Serum or plasma iron binding capacity measurement (mass/volume)Ordered By: Amina Fagan on 10-26-2024 Iron binding capacity [Mass/Vol] Iron binding capacity [Mass/volume] in Serum or Plasma 255-450 [facility] Serum or plasma iron saturat ion measurement (mass fraction)Ordered By: mAina Fagan on 10-26-2024 Iron saturation [Mass fraction] Iron saturation [Mass Fraction] in Serum or Plasma Low 20-50 [facility] Serum or plasma total choles terol/high density lipoprotein (HDL) cholesterol mass ratOrdered By: Teresa Lynch on 10-26-2024 Cholesterol.total/Chol esterol in HDL [Mass ratio] Serum or plasma total cholesterol/high density lipoprotein (HDL) cholesterol mass rat <5.0 [facility] Sodium [Moles/volume] in Ser um or PlasmaOrdered By: Teresa Lynch on 10-26-2024 Sodium [Moles/Vol] Sodium [Moles/volume ] in Serum or Plasma 136-145 [facility] Specific gravity Test strip (U) [Rel density]Ordered By: Amina Fagan on 10-26-2024 Specific gravity (U) [Rel density] Specific gravity of Urine by Test strip 1.001-1.03 0 [facility] Thyroid Stimulating Hormoneo n 10-26-2024 TSH Qn 3.68 m[IU]/L Normal 0.45-5.33 [facility] Comment on above: Performed By: #### L DLD, MG, URIC, TSH3, [id number], PSAS, LIPID ####[facility] [id number] [facility] Thyrotropin [Units/volume] i n Serum or PlasmaOrdered By: Teresa Lynch on 10-26-2024 TSH Qn Thyrotropin [Units/volume] in Serum or Plasma 0.45-5.33 [facility] Transferrin [Mass/volume] in Serum or PlasmaOrdered By: Amina Fagan on 10-26-2024 Transferrin [Mass/Vol] Transferrin [Mass /volume] in Serum or Plasma 203-362 [facility] Triglyceride [Mass/volume] i n Serum or PlasmaOrdered By: Teresa Lynch on 10-26-2024 Triglyceride [Mass/Vol] Triglyceride [Mass/volume] in Serum or Plasma High 0-149 [facility] Comment on above: If the triglyceride [...] [Mass/volume] in Serum or Plasma High 4.4-7.6 [facility] Urea nitrogen [Mass/volume] in Serum or PlasmaOrdered By: Teresa Lynch on 10-26-2024 Urea nitrogen [Mass/Vol] Urea nitrogen [Mass/volume] in Serum or Plasma High 7-25 [facility] Uric Acidon 10-26-2024 Urate [Mass/Vol] 10.5 mg/dL High 4.4-7.6 [facility] Comment on above: Performed By: #### F ER, [id number], URIC, PTH, FE and TIBC ####[address] Urate [Mass/Vol] 10.5 mg/dL High 4.4-7.6 [facility] Comment on above: Performed By: #### L DLD, MG, URIC, TSH3, [id number], PSAS, LIPID ####[id number] [facility] Urinalysison 10-26-2024 Appearance (U) Clear Normal Clear The [facility] Comment on above: Order Comment: Name Collection Type:: Clean-Voided Midstream Performed By: #### P ROCRERAT, UA ####[id number] [facility] Bilirubin,Urine Negative Normal Negative [facility] Comment on above: Order Comment: Name Collection Type:: Clean-Voided Midstream Performed By: #### P ROCRERAT, UA ####[id number] [facility] Color (U) Light-Yellow Normal Yellow [facility] Comment on above: Order Comment: Name Collection Type:: Clean-Voided Midstream Performed By: #### P ROCRERAT, UA ####[address] [address] [facility] Glucose Ql (U) >= High Normal [facility] Comment on above: Order Comment: Name Collection Type:: Clean-Voided Midstream Performed By: #### P ROCRERAT, UA ####[address] [address] [facility] Ketones Ql (U) Negative Normal Negative [facility] Comment on above: Order Comment: Name Collection Type:: Clean-Voided Midstream Performed By: #### P ROCRERAT, UA ####[address] [address] [facility] Leukocyte esterase Test strip Ql (U) Negative Normal Negative [facility] Comment on above: Order Comment: Name Collection Type:: Clean-Voided Midstream Performed By: #### P ROCRERAT, UA ####[address] [address] [facility] Nitrite,Urine Negative Normal Negative The [facility] Comment on above: Order Comment: Name Collection Type:: Clean-Voided Midstream Performed By: #### P ROCRERAT, UA ####[address] [address] [facility] Occult Blood,Urine Negative Normal Negative The [facility] Comment on above: Order Comment: Name Collection Type:: Clean-Voided Midstream Result Comment: PERF ORMED BY:[address] [place], [place] [phone] MEDICAL MARY RUTHERFORD M.D. Performed By: #### P ROCRERAT, UA ####[address] [address] [facility] pH (U) 5.5 [pH] Normal 5.0-9.0 [facility] Comment on above: Order Comment: Name Collection Type:: Clean-Voided Midstream Performed By: #### P ROCRERAT, UA ####[place] [id number] [facility] Protein,Urine Negative Normal Negative [facility] Comment on above: Order Comment: Name Collection Type:: Clean-Voided Midstream Performed By: #### P ROCRERAT, UA ####[address] [place] [address] [facility] Specificy [place],Urine 1.020 Normal 1.001-1.03 0 [facility] Comment on above: Order Comment: Name Collection Type:: Clean-Voided Midstream Performed By: #### P ROCRERAT, UA ####[address] [place] [address] [facility] Urobilinogen,Urine Normal Normal Normal [facility] Comment on above: Order Comment: Name Collection Type:: Clean-Voided Midstream Performed By: #### P ROCRERAT, UA ####[address] [address] [facility] Urine protein/creatinine rat ioOrdered By: Amina Fagan on 10-26-2024 Protein/Creatinine (U) [Ratio] Urine protein/creatinine ratio 0-200 [facility] Urobilinogen Test strip (U) [Mass/Vol]Ordered By: Amina Fagan on 10-26-2024 Urobilinogen (U) [Mass/Vol] Urobilinogen [Mass/volume] in Urine by Test strip Normal [facility] Vit. B12/Folate Profileon Cobalamin (Vitamin B12) [Mass/Vol] 195 pg/mL Normal 180-914 [facility] Comment on above: Performed By: #### F ER, [id number], URIC, PTH, FE and TIBC ####[address] [place] [address] [facility] Folate 10.1 ng/mL Normal >5.9 The [facility] Comment on above: Result Comment: Aure te reference range: >5.9 ng/ml The WHO technical consultation on folate and vitamin b12 deficiencies has determined that folate concentrations less than 4 ng/ml are considered deficient.PERFORMED BY:[address] [place], [place] [phone] MEDICAL DIRECTORBREANNE RUTHERFORD M.D. Performed By: #### F ER, [id number], URIC, PTH, FE and TIBC ####[address] [address] [facility] Vitamin B12 ser/plasOrdered By: Amina Fagan on 10-26-2024 Cobalamin (Vitamin B12) [Mass/Vol] Vitamin B12 ser/plas 180-914 [facility] Vitamin D 25 Hydroxy Totalon 10-26-2024 Vitamin D 25 Hydroxy Total 17.0 ng/mL Low 30-100 [facility] Comment on above: Result Comment: SUBHA MIN D STATUS 25([place])VITAMIN D RANGE (ng/mL) Deficient <20 Insufficient 20 to <30 Sufficient 30 to 100 Reference: Ibrahima Reyes, Kasey LONG, et al. Evaluation,treatment, and prevention of vitamin D deficiency; an Endocrine Society clinical practice guideline. JCEM. 2010; 96(7):191-.PERFORMED BY:[address] [place], [place] [phone] MEDICAL DIRECTORBREANNE RUTHERFORD M.D. Performed By: #### L DLD, MG, URIC, TSH3, [id number], PSAS, LIPID ####[address] [place] [address] [facility] Vitamin D+Metabolites [Mass/ volume] in Serum or PlasmaOrdered By: Teresa Lynch on 10-26-2024 Vitamin D+Metabolites [Mass/Vol] Vitamin D+Metabolites [Mass/volume] in Serum or Plasma Low 30-100 [facility] Comment on above: VITAMIN D STATUS 25( [place])VITAMIN D RANGE (ng/mL) Deficient <20 Insufficient 20 to <30Sufficient 30 to 100Reference: Ibrahima Reyes, Kasey LONG, et al. Evaluation,treatment, and prevention of vitamin D deficiency; an Endocrine Society clinical practice guideline. JCEM. 2010; 96(7):191-. WBC Auto (Bld) [#/Vol]Ordere d By: Maurice Francis on 10-26-2024 WBC (Bld) [#/Vol] Leukocytes [#/volume ] in Blood by Automated count 4.1-10.5 [facility] pH Test strip (U)Ordered By: Amina Fagan on 10-26-2024 pH (U) pH of Urine by Test strip 5.0-9.0 [facility] Anisocytosis LM Ql (Bld)Orde red By: Abdullahi Canchola on 10-11-2024 Anisocytosis Ql (Bld) Anisocytosis [Pres ence] in Blood by Light microscopy [facility] Basic Metabolic Panelon Anion gap [Moles/Vol] 15.7 mmol/L High 6.0-15.0 Th e [facility] Comment on above: Performed By: #### B MP, CK, HS TROP, FE and TIBC, LILA, MG, SCAN CBC ####[address] Calcium [Mass/Vol] 8.9 mg/dL Normal 8.6-10.3 [facility] Comment on above: Performed By: #### B MP, CK, HS TROP, FE and TIBC, LILA, MG, SCAN CBC ####[address] Chloride [Moles/Vol] 99 mmol/L Normal 98-107 [facility] Comment on above: Performed By: #### B MP, CK, HS TROP, FE and TIBC, LILA, MG, SCAN CBC ####[address] CO2 [Moles/Vol] 25.5 mmol/L Normal 21.0-31.0 [facility] Comment on above: Performed By: #### B MP, CK, HS TROP, FE and TIBC, LILA, MG, SCAN CBC ####[address] Creatinine [Mass/Vol] 2.43 mg/dL High 0.70-1.30 [facility] Comment on above: Performed By: #### B MP, CK, HS TROP, FE and TIBC, LILA, MG, SCAN CBC ####[address] Creatinine Clr Calc Pharmacy 35.93 Normal [facility] Comment on above: Performed By: #### B MP, CK, HS TROP, FE and TIBC, LILA, MG, SCAN CBC ####[address] Estimated GFR 29.874 mL/Min Normal [facility] Comment on above: Performed By: #### B MP, CK, HS TROP, FE and TIBC, LILA, MG, SCAN CBC ####[address] Glucose [Mass/Vol] 221 mg/dL High 70-100 [facility] Comment on above: Result Comment: [place] Glucose Reference Range is dependent on time and content of last meal. Glucose of more than 200 mg/dL in a nonstressed, ambulatory subject supports the diagnosis of Diabetes Mellitus. ADA recommended reference range Performed By: #### B MP, CK, HS TROP, FE and TIBC, LILA, MG, SCAN CBC ####[address] Potassium [Moles/Vol] 4.2 mmol/L Normal 3.5-5.1 [facility] Comment on above: Performed By: #### B MP, CK, HS TROP, FE and TIBC, LILA, MG, SCAN CBC ####[address] Sodium [Moles/Vol] 136 mmol/L Normal 136-145 [facility] Comment on above: Performed By: #### B MP, CK, HS TROP, FE and TIBC, LILA, MG, SCAN CBC ####[address] Urea nitrogen [Mass/Vol] 39 mg/dL High 7-25 [facility] Comment on above: Performed By: #### B MP, CK, HS TROP, FE and TIBC, LILA, MG, SCAN CBC ####[address] Basophils Auto (Bld) [#/Vol] Ordered By: Abdullahi Canchola on 10-11-2024 Basophils (Bld) [#/Vol] Automated basophil count 0.0-0.2 [facility] Basophils/100 WBC Auto (Bld) Ordered By: Abdullahi Canchola on 10-11-2024 Basophils/100 WBC (Bld) Automated basophil % . [facility] Calcium [Mass/volume] in Ser um or PlasmaOrdered By: Abdullahi Canchola on 10-11-2024 Calcium [Mass/Vol] Calcium [Mass/volume ] in Serum or Plasma 8.6-10.3 [facility] Carbon dioxide, total [Moles /volume] in Serum or PlasmaOrdered By: Abdullahi Canchola on 10-11-2024 CO2 [Moles/Vol] Carbon dioxide, tota l [Moles/volume] in Serum or Plasma 21.0-31.0 [facility] Chloride [Moles/volume] in S ilia or PlasmaOrdered By: Abdullahi Canchola on 10-11-2024 Chloride [Moles/Vol] Chloride [Moles/vol ume] in Serum or Plasma 98-107 [facility] Creatine Kinaseon 10-11-2024 CK [Catalytic activity/Vol] 91 U/L Normal 30-223 [facility] Comment on above: Performed By: #### B MP, CK, HS TROP, FE and TIBC, LILA, MG, SCAN CBC ####[facility] [id number] [place] [address] [facility] Creatine kinase [Enzymatic a ctivity/volume] in Serum or PlasmaOrdered By: Abdullahi Canchola on 10-11-2024 CK [Catalytic activity/Vol] Creatine kinase [Enzymatic activity/volume] in Serum or Plasma 30-223 [facility] Creatinine [Mass/volume] in Serum or PlasmaOrdered By: Abdullahi Canchoal on 10-11-2024 Creatinine [Mass/Vol] Creatinine [Mass/v olume] in Serum or Plasma High 0.70-1.30 [facility] ECH echo transthoracicon ECH echo transthoracic Normal Th e [facility] Eosinophils Auto (Bld) [#/Vo l]Ordered By: Abdullahi Canchola on 10-11-2024 Eosinophils (Bld) [#/Vol] Automated eosinophil count 0.0-0.45 [facility] Eosinophils/100 WBC Auto (Bl d)Ordered By: Abdullahi Canchola on 10-11-2024 Eosinophils/100 WBC (Bld) Automated eosinophil % . [facility] Erythrocyte distribution wid th Auto (RBC) [Ratio]Ordered By: Abdullahi Canchola on 10-11-2024 Erythrocyte distribution width (RBC) [Ratio] Erythrocyte distribution width [Ratio] by Automated count High 12.0-14.8 [facility] Erythrocyte morphology findi ng [Identifier] in BloodOrdered By: Abdullahi Canchola on 10-11-2024 RBC morphology finding Nom (Bld) RBC morphology [facility] Ferritinon 10-11-2024 Ferritin [Mass/Vol] 8.2 ng/mL Low 23.9-336.2 [facility] Comment on above: Result Comment: PERF ORMED BY:[address] [place], [place] [phone] MEDICAL DIRECTORMIKE CABAN M.D. Performed By: #### B MP, CK, HS TROP, FE and TIBC, LILA, MG, SCAN CBC ####[address] [address] [facility] Ferritin [Mass/volume] in Se rum or PlasmaOrdered By: Abdullahi Canchola on 10-11-2024 Ferritin [Mass/Vol] Ferritin [Mass/volum e] in Serum or Plasma Low 23.9-336.2 [facility] Glucose Glucometer (BldC) [M ass/Vol]Ordered By: Abdullahi Canchola on 10-11-2024 Glucose [Mass/Vol] Capillary blood gluc ose measurement by glucometer (mass/volume) [facility] Comment on above: Random Glucose Refer ence Range is dependent on time and content of last meal. Glucose of more than 200 mg/dL in a nonstressed, ambulatory subject supports the diagnosis of Diabetes Mellitus. Glucose Poct Glucometerson 0 10-11-2024 Commemt1 Glu2: Cleaned Meter Normal [facility] Comment on above: Result Comment: PERF ORMED BY:[address] [place], [place] [phone] MEDICAL DIRECTORMIKE CABAN M.D. Performed By: #### G LULS ####Point of Care testing, Glucose [Mass/Vol] 194 mg/dL Normal [facility] Comment on above: Result Comment: [place] om Glucose Reference Range is dependent on time and content of last meal. Glucose of more than 200 mg/dL in a nonstressed, ambulatory subject supports the diagnosis of Diabetes Mellitus. Performed By: #### G LULS ####Point of Care testing, Commemt1 Glu2: Cleaned Meter Normal [facility] Comment on above: Result Comment: PERF ORMED BY:[address] [place], [place] [phone] MEDICAL DIRECTORMIKE CABAN M.D. Performed By: #### G LULS ####Point of Care testing, Glucose [Mass/Vol] 229 mg/dL Normal [facility] Comment on above: Result Comment: [place] om Glucose Reference Range is dependent on time and content of last meal. Glucose of more than 200 mg/dL in a nonstressed, ambulatory subject supports the diagnosis of Diabetes Mellitus. Performed By: #### G LULS ####Point of Care testing, Glucose [Mass/volume] in Ser um or PlasmaOrdered By: Abdullahi Canchola on 10-11-2024 Glucose [Mass/Vol] Glucose [Mass/volume ] in Serum or Plasma High 70-100 [facility] Comment on above: ADA recommended refe rence rangeRandom Glucose Reference Range is dependent on time and content of last meal. Glucose of more than 200 mg/dL in a nonstressed, ambulatory subject supports the diagnosis of Diabetes Mellitus. Hematocrit Auto (Bld) [Volum e fraction]Ordered By: Abdullahi Canchola on 10-11-2024 Hematocrit (Bld) [Volume fraction] Hematocrit [Volume Fraction] of Blood by Automated count 38.8-50.0 [facility] Hemoglobin [Mass/volume] in BloodOrdered By: Abdullahi Canchola on 10-11-2024 Hemoglobin (Bld) [Mass/Vol] Hemoglobin [Mass/volume] in Blood 13.0-17.0 [facility] Iron [Mass/volume] in Serum or PlasmaOrdered By: Abdullahi Canchola on 10-11-2024 Iron [Mass/Vol] Iron [Mass/volume] i n Serum or Plasma Low 50-212 [facility] Iron and TIBC Profileon 05- % Iron Saturation 9.1 % Low 20-50 [facility] Comment on above: Performed By: #### B MP, CK, HS TROP, FE and TIBC, LILA, MG, SCAN CBC ####[place] [id number] Iron [Mass/Vol] 37 ug/dL Low 50-212 [facility] Comment on above: Performed By: #### B MP, CK, HS TROP, FE and TIBC, LILA, MG, SCAN CBC ####[place] [address] Total Iron Binding Capacity 407 ug/dL Normal 255-450 [facility] Comment on above: Performed By: #### B MP, CK, HS TROP, FE and TIBC, LILA, MG, SCAN CBC ####[place] [address] Transferrin [Mass/Vol] 291 mg/dL Normal 203-[address] [facility] Comment on above: Performed By: #### B MP, CK, HS TROP, FE and TIBC, LILA, MG, SCAN CBC ####[address] Leukocytes [#/volume] correc jorge for nucleated erythrocytes in Blood by Automated counOrdered By: Abdullahi Canchola on 10-11-2024 WBC corrected for nucl RBC Auto (Bld) [#/Vol] Leukocytes [#/volume] corrected for nucleated erythrocytes in Blood by Automated coun 4.1-10.5 [facility] Lymphocytes Auto (Bld) [#/Vo l]Ordered By: Abdullahi Canchola on 10-11-2024 Lymphocytes (Bld) [#/Vol] Lymphocytes [#/volume] in Blood by Automated count 1.00-4.8 [facility] Lymphocytes/100 WBC Auto (Bl d)Ordered By: Abdullahi Canchola on 10-11-2024 Lymphocytes/100 WBC (Bld) Lymphocytes/100 leukocytes in Blood by Automated count . [facility] MCH Auto (RBC) [Entitic mass ]Ordered By: Abdullahi Canchola on 10-11-2024 MCH (RBC) [Entitic mass] MCH [Entitic mass] by Automated count Low 27.5-35.2 [facility] MCHC Auto (RBC) [Mass/Vol]Or dered By: Abdullahi Canchola on 10-11-2024 MCHC (RBC) [Mass/Vol] MCHC [Mass/volume] by Automated count 32.5-35.6 [facility] MCV Auto (RBC) [Entitic vol] Ordered By: Abdullahi Canchola on 10-11-2024 MCV (RBC) [Entitic vol] MCV [Entitic volume] by Automated count Low 83.5-101 [facility] Magnesiumon 10-11-2024 Magnesium [Mass/Vol] 1.8 mg/dL Low 1.9-2.7 [facility] Comment on above: Performed By: #### B MP, CK, HS TROP, FE and TIBC, LILA, MG, SCAN CBC ####[facility] [id number] Magnesium [Mass/volume] in S ilia or PlasmaOrdered By: Abdullahi Canchola on 10-11-2024 Magnesium [Mass/Vol] Magnesium [Mass/vol ume] in Serum or Plasma Low 1.9-2.7 [facility] Microcytes LM Ql (Bld)Ordere d By: Abdullahi Canchola on 10-11-2024 Microcytes Ql (Bld) Microcytes [Presence ] in Blood by Light microscopy [facility] Monocytes Auto (Bld) [#/Vol] Ordered By: Abdullahi Canchola on 10-11-2024 Monocytes (Bld) [#/Vol] Automated blood monocyte count High 0.0-0.8 [facility] Monocytes/100 WBC Auto (Bld) Ordered By: Abdullahi Canchola on 10-11-2024 Monocytes/100 WBC (Bld) Automated monocyte % . [facility] Neutrophils Auto (Bld) [#/Vo l]Ordered By: Abdullahi Canchola on 10-11-2024 Neutrophils (Bld) [#/Vol] Neutrophils [#/volume] in Blood by Automated count 1.8-7.7 [facility] Neutrophils/100 WBC Auto (Bl d)Ordered By: Abdullahi Canchola on 10-11-2024 Neutrophils/100 WBC (Bld) Automated neutrophil % . [facility] No Panel InformationOrdered By: Abdullahi Canchola on 10-11-2024 Bedside Glucose Comment Glu2: cleaned meter [facility] Glu2: cleaned meter [facility] Estimated GFR (CKD-EPI) 29.874 mL/Min [facility] Creatinine Clearance (Chem 35.93 [facility] 29.874 mL/Min [facility] 35.93 [facility] Nucleated erythrocytes [Pres ence] in Blood by Automated countOrdered By: Abdullahi Canchola on 10-11-2024 Nucleated RBC Auto Ql (Bld) Nucleated erythrocytes [Presence] in Blood by Automated count 0-0.5 [facility] Ovalocytes [Presence] in Blo od by Light microscopyOrdered By: Abdullahi Canchola on 10-11-2024 Ovalocytes LM Ql (Bld) Ovalocyte detection [facility] Platelet adequacy [Presence] in Blood by Light microscopyOrdered By: Abdullahi Canchola on 10-11-2024 Platelets LM Ql (Bld) Platelet adequacy [Presence] in Blood by Light microscopy Normal [facility] Platelet mean volume Auto (B ld) [Entitic vol]Ordered By: Abdullahi Canchola on 10-11-2024 Platelet mean volume (Bld) [Entitic vol] Platelet mean volume [Entitic volume] in Blood by Automated count 6.6-10.1 [facility] Platelet morphology finding [Identifier] in BloodOrdered By: Abdullahi Canchola on 10-11-2024 Platelet morphology finding Nom (Bld) Platelet morphology finding [Identifier] in Blood [facility] Platelets Auto (Bld) [#/Vol] Ordered By: Abdullahi Canchola on 10-11-2024 Platelets (Bld) [#/Vol] Platelets [#/volume] in Blood by Automated count 150-450 [facility] Platelets Large [Presence] i n Blood by Light microscopyOrdered By: Abdullahi Canchola on 10-11-2024 Platelets Large LM Ql (Bld) Platelets Large [Presence] in Blood by Light microscopy [facility] Poikilocytosis [Presence] in Blood by Light microscopyOrdered By: Abdullahi Canchola on 10-11-2024 Poikilocytosis LM Ql (Bld) Poikilocytosis [Presence] in Blood by Light microscopy [facility] Polychromasia [Presence] in Blood by Light microscopyOrdered By: Abdullahi Canchola on 10-11-2024 Polychromasia LM Ql (Bld) Polychromasia [Presence] in Blood by Light microscopy [facility] Potassium [Moles/volume] in Serum or PlasmaOrdered By: Abdullahi Canchola on 10-11-2024 Potassium [Moles/Vol] Potassium [Moles/v olume] in Serum or Plasma 3.5-5.1 [facility] RBC Auto (Bld) [#/Vol]Ordere d By: Abdullahi Canchola on 10-11-2024 RBC (Bld) [#/Vol] Erythrocytes [#/volu me] in Blood by Automated count 3.90-5.60 [facility] Scan and CBCon 10-11-2024 Anisocytosis Ql (Bld) Marked Normal [facility] Comment on above: Performed By: #### B MP, CK, HS TROP, FE and TIBC, LILA, MG, SCAN CBC ####[address] Basophils (Bld) [#/Vol] 0.1 10*3/uL Normal 0.0-0.2 [facility] Comment on above: Performed By: #### B MP, CK, HS TROP, FE and TIBC, LILA, MG, SCAN CBC ####[address] Basophils/100 WBC (Bld) 1.3 % Normal . [facility] Comment on above: Performed By: #### B MP, CK, HS TROP, FE and TIBC, LILA, MG, SCAN CBC ####[address] Eosinophils (Bld) [#/Vol] 0.3 10*3/uL Normal 0.0-0.45 [facility] Comment on above: Performed By: #### B MP, CK, HS TROP, FE and TIBC, LILA, MG, SCAN CBC ####[address] Eosinophils/100 WBC (Bld) 4.0 % Normal . [facility] Comment on above: Performed By: #### B MP, CK, HS TROP, FE and TIBC, LILA, MG, SCAN CBC ####[address] Erythrocyte distribution width (RBC) [Ratio] 23.3 % High 12.0-14.8 [facility] Comment on above: Performed By: #### B MP, CK, HS TROP, FE and TIBC, LILA, MG, SCAN CBC ####[address] Hematocrit (Bld) [Volume fraction] 38.9 % Normal 38.8-50.0 [facility] Comment on above: Performed By: #### B MP, CK, HS TROP, FE and TIBC, LILA, MG, SCAN CBC ####[address] Hemoglobin (Bld) [Mass/Vol] 13.1 g/dL Normal 13.0-17.0 [facility] Comment on above: Performed By: #### B MP, CK, HS TROP, FE and TIBC, LILA, MG, SCAN CBC ####[address] Large Platelets Slight Normal [facility] Comment on above: Result Comment: PERF ORMED BY:[address] [place], [place] [phone] MEDICAL DIRECTORMIKE CABAN M.D. Performed By: #### B MP, CK, HS TROP, FE and TIBC, LILA, MG, SCAN CBC ####[address] [place] [address] [place] Lymphocytes (Bld) [#/Vol] 2.0 10*3/uL Normal 1.00-4.8 [facility] Comment on above: Performed By: #### B MP, CK, HS TROP, FE and TIBC, LILA, MG, SCAN CBC ####[address] Lymphocytes/100 WBC (Bld) 25.5 % Normal . [facility] Comment on above: Performed By: #### B MP, CK, HS TROP, FE and TIBC, LILA, MG, SCAN CBC ####[address] MCH (RBC) [Entitic mass] 25.7 pg Low 27.5-35.2 [facility] Comment on above: Performed By: #### B MP, CK, HS TROP, FE and TIBC, LILA, MG, SCAN CBC ####[address] MCV (RBC) [Entitic vol] 76.5 fL Low 83.5-101 [facility] Comment on above: Performed By: #### B MP, CK, HS TROP, FE and TIBC, LILA, MG, SCAN CBC ####[address] Mean Corpuscular HGB Conc 33.6 g/dL Normal 32.5-35.6 [facility] Comment on above: Performed By: #### B MP, CK, HS TROP, FE and TIBC, LILA, MG, SCAN CBC ####[address] Microcytosis Moderate Normal [facility] Comment on above: Performed By: #### B MP, CK, HS TROP, FE and TIBC, LILA, MG, SCAN CBC ####[address] Monocytes (Bld) [#/Vol] 0.9 10*3/uL High 0.0-0.8 [facility] Comment on above: Performed By: #### B MP, CK, HS TROP, FE and TIBC, LILA, MG, SCAN CBC ####[address] Monocytes/100 WBC (Bld) 10.9 % Normal . [facility] Comment on above: Performed By: #### B MP, CK, HS TROP, FE and TIBC, LILA, MG, SCAN CBC ####[address] Neutrophils (Bld) [#/Vol] 4.6 10*3/uL Normal 1.8-7.7 [facility] Comment on above: Performed By: #### B MP, CK, HS TROP, FE and TIBC, LILA, MG, SCAN CBC ####[address] Neutrophils/100 WBC (Bld) 58.3 % Normal . [facility] Comment on above: Performed By: #### B MP, CK, HS TROP, FE and TIBC, LILA, MG, SCAN CBC ####[address] NRBC% 0.1 /100{WBC} Normal 0-0.5 [facility] Comment on above: Performed By: #### B MP, CK, HS TROP, FE and TIBC, LILA, MG, SCAN CBC ####[address] Ovalocytes Slight Normal [facility] Comment on above: Performed By: #### B MP, CK, HS TROP, FE and TIBC, LILA, MG, SCAN CBC ####[address] Platelet Estimate Normal Normal Normal [facility] Comment on above: Performed By: #### B MP, CK, HS TROP, FE and TIBC, LILA, MG, SCAN CBC ####[address] Platelet mean volume (Bld) [Entitic vol] 9.5 fL Normal 6.6-10.1 [facility] Comment on above: Performed By: #### B MP, CK, HS TROP, FE and TIBC, LILA, MG, SCAN CBC ####[address] Platelets (Bld) [#/Vol] 176 10*3/uL Normal 150-450 [facility] Comment on above: Performed By: #### B MP, CK, HS TROP, FE and TIBC, LILA, MG, SCAN CBC ####[address] Poikilocytosis Slight Normal [facility] Comment on above: Performed By: #### B MP, CK, HS TROP, FE and TIBC, LILA, MG, SCAN CBC ####[address] Polychromasia Slight Normal [facility] Comment on above: Performed By: #### B MP, CK, HS TROP, FE and TIBC, LILA, MG, SCAN CBC ####[address] RBC (Bld) [#/Vol] 5.09 10*6/uL Normal 3.90-5.60 [facility] Comment on above: Performed By: #### B MP, CK, HS TROP, FE and TIBC, LILA, MG, SCAN CBC ####[address] WBC (Bld) [#/Vol] 7.9 10*3/uL Normal 4.1-10.5 [facility] Comment on above: Performed By: #### B MP, CK, HS TROP, FE and TIBC, LILA, MG, SCAN CBC ####[address] Serum or plasma anion gap de terminationOrdered By: Abdullahi Canchola on 10-11-2024 Anion gap [Moles/Vol] Serum or plasma an ion gap determination High 6.0-15.0 [facility] Serum or plasma iron binding capacity measurement (mass/volume)Ordered By: Abdullahi Canchola on 10-11-2024 Iron binding capacity [Mass/Vol] Iron binding capacity [Mass/volume] in Serum or Plasma 255-450 [facility] Serum or plasma iron saturat ion measurement (mass fraction)Ordered By: Abdullahi Canchola on 10-11-2024 Iron saturation [Mass fraction] Iron saturation [Mass Fraction] in Serum or Plasma Low 20-50 [facility] Sodium [Moles/volume] in Ser um or PlasmaOrdered By: Abdullahi Canchola on 10-11-2024 Sodium [Moles/Vol] Sodium [Moles/volume ] in Serum or Plasma 136-145 [facility] Transferrin [Mass/volume] in Serum or PlasmaOrdered By: Abdullahi Canchola on 10-11-2024 Transferrin [Mass/Vol] Transferrin [Mass /volume] in Serum or Plasma 203-362 [facility] Troponin I High Sensitivityo n 10-11-2024 Troponin I High Sensitivity 5 Normal 0-20 [facility] Comment on above: Result Comment: The Troponin units of report have been changed to meet the Chest Pain Accreditation requirement, element EC5.M1l2. Troponin units are changed from pg/ml to ng/L. Also, the decimal is removed and results are in whole numbers.PERFORMED BY:[id number] [place] [address] [place], [place] [phone] MEDICAL DIRECTORMIKE CABAN M.D. Performed By: #### B MP, CK, HS TROP, FE and TIBC, LILA, MG, SCAN CBC ####[facility] [place] [id number] [facility] Troponin I.cardiac [Mass/vol ume] in Serum or Plasma by Detection limit <= 0.01 ng/Ordered By: Abdullahi Canchola on 10-11-2024 Troponin I.cardiac DL <= 0.01 ng/mL [Mass/Vol] Troponin I.cardiac [Mass/volume] in Serum or Plasma by Detection limit <= 0.01 ng/ 0-20 [facility] Comment on above: The Troponin units [...] [Mass/volume] in Serum or Plasma High 7-25 [facility] WBC Auto (Bld) [#/Vol]Ordere d By: Abdullahi Canchola on 10-11-2024 WBC (Bld) [#/Vol] Leukocytes [#/volume ] in Blood by Automated count 4.1-10.5 [facility] Anisocytosis LM Ql (Bld)Orde red By: Jez Dominguez on 10-10-2024 Anisocytosis Ql (Bld) Anisocytosis [Pres ence] in Blood by Light microscopy [facility] B-Type Natriuretic Peptideon 10-10-2024 Natriuretic peptide B (Bld) [Mass/Vol] 17.0 pg/mL Normal 5-100 [facility] Comment on above: Result Comment: PERF ORMED BY:[address] [place], [place] [id number] MEDICAL DIRECTORMIKE CABAN M.D. Performed By: #### H S TROP, BNP, PT, BMP, SCAN CBC, CK ####[place] [id number] [facility] Basic Metabolic Panelon 050 Anion gap [Moles/Vol] 15.5 mmol/L High 6.0-15.0 [facility] Comment on above: Performed By: #### H S TROP, BNP, PT, BMP, SCAN CBC, CK ####[place] [id number] [facility] Calcium [Mass/Vol] 9.7 mg/dL Normal 8.6-10.3 [facility] Comment on above: Performed By: #### H S TROP, BNP, PT, BMP, SCAN CBC, CK ####[place] [id number] [facility] Chloride [Moles/Vol] 98 mmol/L Normal 98-107 [facility] Comment on above: Performed By: #### H S TROP, BNP, PT, BMP, SCAN CBC, CK ####[facility] [place] [address] [facility] CO2 [Moles/Vol] 25.6 mmol/L Normal 21.0-31.0 [facility] Comment on above: Performed By: #### H S TROP, BNP, PT, BMP, SCAN CBC, CK ####[place] [address] [place] [address] [facility] Creatinine [Mass/Vol] 2.51 mg/dL High 0.70-1.30 [facility] Comment on above: Performed By: #### H S TROP, BNP, PT, BMP, SCAN CBC, CK ####[place] [address] [place] [id number] [facility] Creatinine Clr Calc Pharmacy 34.78 Normal [facility] Comment on above: Result Comment: PERF ORMED BY:[address] [place], [place] [phone] MEDICAL DIRECTORMIKE CABAN M.D. Performed By: #### H S TROP, BNP, PT, BMP, SCAN CBC, CK ####[place] [id number] [facility] Estimated GFR 28.735 mL/Min Normal [facility] Comment on above: Performed By: #### H S TROP, BNP, PT, BMP, SCAN CBC, CK ####[place] [address] [place] [id number] [facility] Glucose [Mass/Vol] 278 mg/dL High 70-100 [facility] Comment on above: Result Comment: [place] Glucose Reference Range is dependent on time and content of last meal. Glucose of more than 200 mg/dL in a nonstressed, ambulatory subject supports the diagnosis of Diabetes Mellitus. ADA recommended reference range Performed By: #### H S TROP, BNP, PT, BMP, SCAN CBC, CK ####[place] [address] [place] [address] [facility] Potassium [Moles/Vol] 4.1 mmol/L Normal 3.5-5.1 [facility] Comment on above: Performed By: #### H S TROP, BNP, PT, BMP, SCAN CBC, CK ####[facility] [address] Sodium [Moles/Vol] 135 mmol/L Low 136-145 [facility] Comment on above: Performed By: #### H S TROP, BNP, PT, BMP, SCAN CBC, CK ####[facility] Urea nitrogen [Mass/Vol] 41 mg/dL High 7-25 [facility] Comment on above: Performed By: #### H S TROP, BNP, PT, BMP, SCAN CBC, CK ####[facility] Basophils Auto (Bld) [#/Vol] Ordered By: Jez Dominguez on 10-10-2024 Basophils (Bld) [#/Vol] Automated basophil count 0.0-0.2 [facility] Basophils/100 WBC Auto (Bld) Ordered By: Jez Dominguez on 10-10-2024 Basophils/100 WBC (Bld) Automated basophil % . [facility] Calcium [Mass/volume] in Ser um or PlasmaOrdered By: Jez Dominguez on 10-10-2024 Calcium [Mass/Vol] Calcium [Mass/volume ] in Serum or Plasma 8.6-10.3 [facility] Carbon dioxide, total [Moles /volume] in Serum or PlasmaOrdered By: Jez Dominguez on 10-10-2024 CO2 [Moles/Vol] Carbon dioxide, tota l [Moles/volume] in Serum or Plasma 21.0-31.0 [facility] Chloride [Moles/volume] in S ilia or PlasmaOrdered By: Jez Dominguez on 10-10-2024 Chloride [Moles/Vol] Chloride [Moles/vol ume] in Serum or Plasma 98-107 [facility] Creatine Kinaseon 10-10-2024 CK [Catalytic activity/Vol] 101 U/L Normal 30-223 [facility] Comment on above: Performed By: #### H S TROP, CK ####[place] [id number] CK [Catalytic activity/Vol] 126 U/L Normal 30 [facility] Comment on above: Performed By: #### H S TROP, BNP, PT, BMP, SCAN CBC, CK ####[facility] [address] [place] [address] [facility] Creatine kinase [Enzymatic a ctivity/volume] in Serum or PlasmaOrdered By: Jez Dominguez on 10-10-2024 CK [Catalytic activity/Vol] Creatine kinase [Enzymatic activity/volume] in Serum or Plasma [facility] Creatinine [Mass/volume] in Serum or PlasmaOrdered By: Jez Dominguez on 10-10-2024 Creatinine [Mass/Vol] Creatinine [Mass/v olume] in Serum or Plasma High 0.70-1.30 [facility] ECG 12 lead ECGon 10-10-2024 ECG 12 lead ECG Normal [facility] ECG 12 lead ECG Normal [facility] ECG 12 lead ECG Normal [facility] Eosinophils Auto (Bld) [#/Vo l]Ordered By: Jez Dominguez on 10-10-2024 Eosinophils (Bld) [#/Vol] Automated eosinophil count 0.0-0.45 [facility] Eosinophils/100 WBC Auto (Bl d)Ordered By: Jez Dominguez on 10-10-2024 Eosinophils/100 WBC (Bld) Automated eosinophil % . [facility] Erythrocyte distribution wid th Auto (RBC) [Ratio]Ordered By: Jez Dominguez on 10-10-2024 Erythrocyte distribution width (RBC) [Ratio] Erythrocyte distribution width [Ratio] by Automated count High 12.0-14.8 [facility] Erythrocyte morphology findi ng [Identifier] in BloodOrdered By: Jez Dominguez on 10-10-2024 RBC morphology finding Nom (Bld) RBC morphology [facility] Glucose Poct Glucometerson 0 10-10-2024 Glucose [Mass/Vol] 204 mg/dL Normal [facility] Comment on above: Result Comment: [facility] Glucose Reference Range is dependent on time and content of last meal. Glucose of more than 200 mg/dL in a nonstressed, ambulatory subject supports the diagnosis of Diabetes Mellitus.PERFORMED BY:[facility] [place], [place] [id number] MEDICAL DIRECTORMIKE CABAN M.D. Performed By: #### G NELI ####Point of Care testing, Glucose [Mass/volume] in Ser um or PlasmaOrdered By: Jez Dominguez on 10-10-2024 Glucose [Mass/Vol] Glucose [Mass/volume ] in Serum or Plasma High 70-100 [facility] Comment on above: ADA recommended refe rence rangeRandom Glucose Reference Range is dependent on time and content of last meal. Glucose of more than 200 mg/dL in a nonstressed, ambulatory subject supports the diagnosis of Diabetes Mellitus. Hematocrit Auto (Bld) [Volum e fraction]Ordered By: Jez Dominguez on 10-10-2024 Hematocrit (Bld) [Volume fraction] Hematocrit [Volume Fraction] of Blood by Automated count 38.8-50.0 [facility] Hemoglobin [Mass/volume] in BloodOrdered By: Jez Dominguez on 10-10-2024 Hemoglobin (Bld) [Mass/Vol] Hemoglobin [Mass/volume] in Blood 13.0-17.0 [facility] INR in Platelet poor plasma by Coagulation assayOrdered By: Jez Dominguez on 10-10-2024 INR Coag (PPP) [Relative time] INR in Platelet poor plasma by Coagulation assay [facility] Comment on above: INR Therapeutic Rang [...] erythrocytes in Blood by Automated coun 4.1-10.5 [facility] Lymphocytes Auto (Bld) [#/Vo l]Ordered By: Jez Dominguez on 10-10-2024 Lymphocytes (Bld) [#/Vol] Lymphocytes [#/volume] in Blood by Automated count 1.00-4.8 [facility] Lymphocytes/100 WBC Auto (Bl d)Ordered By: Jez Dominguez on 10-10-2024 Lymphocytes/100 WBC (Bld) Lymphocytes/100 leukocytes in Blood by Automated count . [facility] MCH Auto (RBC) [Entitic mass ]Ordered By: Jez Dominguez on 10-10-2024 MCH (RBC) [Entitic mass] MCH [Entitic mass] by Automated count Low 27.5-35.2 [facility] MCHC Auto (RBC) [Mass/Vol]Or dered By: Jez Dominguez on 10-10-2024 MCHC (RBC) [Mass/Vol] MCHC [Mass/volume] by Automated count 32.5-35.6 [facility] MCV Auto (RBC) [Entitic vol] Ordered By: Jez Dominguez on 10-10-2024 MCV (RBC) [Entitic vol] MCV [Entitic volume] by Automated count Low 83.5-101 [facility] Microcytes LM Ql (Bld)Ordere d By: Jez Dominguez on 10-10-2024 Microcytes Ql (Bld) Microcytes [Presence ] in Blood by Light microscopy [facility] Monocyte distribution width [Entitic volume] in Blood by AutomatedOrdered By: Jez Dominguez on 10-10-2024 Monocyte distribution width Auto (Bld) [Entitic vol] Monocyte distribution width [Entitic volume] in Blood by Automated 0.00-20.00 [facility] Monocytes Auto (Bld) [#/Vol] Ordered By: Jez Dominguez on 10-10-2024 Monocytes (Bld) [#/Vol] Automated blood monocyte count 0.0-0.8 [facility] Monocytes/100 WBC Auto (Bld) Ordered By: Jez Dominguez on 10-10-2024 Monocytes/100 WBC (Bld) Automated monocyte % . [facility] Natriuretic peptide B [Mass/ Vol]Ordered By: Jez Dominguez on 10-10-2024 Natriuretic peptide B (Bld) [Mass/Vol] BNP ser/plas 5-100 [facility] Neutrophils Auto (Bld) [#/Vo l]Ordered By: Jez Dominguez on 10-10-2024 Neutrophils (Bld) [#/Vol] Neutrophils [#/volume] in Blood by Automated count 1.8-7.7 [facility] Neutrophils/100 WBC Auto (Bl d)Ordered By: Jez Dominguez on 10-10-2024 Neutrophils/100 WBC (Bld) Automated neutrophil % . [facility] No Panel InformationOrdered By: Jez Dominguez on 10-10-2024 Estimated GFR (CKD-EPI) 28.735 mL/Min [facility] Creatinine Clearance (Chem 34.78 [facility] Nucleated erythrocytes [Pres ence] in Blood by Automated countOrdered By: Jez Dominguez on 10-10-2024 Nucleated RBC Auto Ql (Bld) Nucleated erythrocytes [Presence] in Blood by Automated count 0-0.5 [facility] Platelet adequacy [Presence] in Blood by Light microscopyOrdered By: Jez Dominguez on 10-10-2024 Platelets LM Ql (Bld) Platelet adequacy [Presence] in Blood by Light microscopy Normal [facility] Platelet mean volume Auto (B ld) [Entitic vol]Ordered By: Jez Dominguez on 10-10-2024 Platelet mean volume (Bld) [Entitic vol] Platelet mean volume [Entitic volume] in Blood by Automated count 6.6-10.1 [facility] Platelet morphology finding [Identifier] in BloodOrdered By: Jez Dominguez on 10-10-2024 Platelet morphology finding Nom (Bld) Platelet morphology finding [Identifier] in Blood Normal [facility] Platelets Auto (Bld) [#/Vol] Ordered By: Jez Dominguez on 10-10-2024 Platelets (Bld) [#/Vol] Platelets [#/volume] in Blood by Automated count 150-450 [facility] Poikilocytosis [Presence] in Blood by Light microscopyOrdered By: Jez Dominguez on 10-10-2024 Poikilocytosis LM Ql (Bld) Poikilocytosis [Presence] in Blood by Light microscopy [facility] Polychromasia [Presence] in Blood by Light microscopyOrdered By: Jez Dominguez on 10-10-2024 Polychromasia LM Ql (Bld) Polychromasia [Presence] in Blood by Light microscopy [facility] Potassium [Moles/volume] in Serum or PlasmaOrdered By: Jez Dominguez on 10-10-2024 Potassium [Moles/Vol] Potassium [Moles/v olume] in Serum or Plasma 3.5-5.1 [facility] Prothrombin Time INRon 10-10 INR Coag (PPP) [Relative time] 1.0 {INR} Normal [facility] Comment on above: Result [...] with mechanical heart valves: 3 - 4.5PERFORMED BY:[address] [place], [place] [phone] MEDICAL DIRECTORMIKE CABAN M.D. Performed By: #### H S TROP, BNP, PT, BMP, SCAN CBC, CK ####[facility] [place] [address] [facility] PT Coag (PPP) [Time] 11.4 s Normal 9.0-12.9 [facility] Comment on above: Result Comment: A matocrit value greater than 55% may lead to inaccurate results in coagulation testing. Patients having hematocrit values >55% require a special collection tube for coagulation studies. Please contact the laboratory at [phone] for redraw instructions. Performed By: #### H S TROP, BNP, PT, BMP, SCAN CBC, CK ####[facility] [place] [address] [facility] Prothrombin time (PT)Ordered By: Jez Dominguez on 10-10-2024 PT Coag (PPP) [Time] Prothrombin time (PT) 9.0- 12.9 [facility] Comment on above: A hematocrit value g reater than 55% may lead to inaccurate results in coagulation testing. Patients having hematocrit values >55% require a special collection tube for coagulation studies. Please contact the laboratory at [phone] for redraw instructions. RBC Auto (Bld) [#/Vol]Ordere d By: Jez Dominguez on 10-10-2024 RBC (Bld) [#/Vol] Erythrocytes [#/volu me] in Blood by Automated count High 3.90-5.60 [facility] Scan and CBCon 10-10-2024 Anisocytosis Ql (Bld) Marked Normal [facility] Comment on above: Performed By: #### H S TROP, BNP, PT, BMP, SCAN CBC, CK ####[address] Basophils (Bld) [#/Vol] 0.1 10*3/uL Normal 0.0-0.2 [facility] Comment on above: Performed By: #### H S TROP, BNP, PT, BMP, SCAN CBC, CK ####[address] Basophils/100 WBC (Bld) 1.3 % Normal . [facility] Comment on above: Performed By: #### H S TROP, BNP, PT, BMP, SCAN CBC, CK ####[address] Eosinophils (Bld) [#/Vol] 0.3 10*3/uL Normal 0.0-0.45 [facility] Comment on above: Performed By: #### H S TROP, BNP, PT, BMP, SCAN CBC, CK ####[address] Eosinophils/100 WBC (Bld) 4.0 % Normal . [facility] Comment on above: Performed By: #### H S TROP, BNP, PT, BMP, SCAN CBC, CK ####[address] Erythrocyte distribution width (RBC) [Ratio] 23.4 % High 12.0-14.8 [facility] Comment on above: Performed By: #### H S TROP, BNP, PT, BMP, SCAN CBC, CK ####[address] Hematocrit (Bld) [Volume fraction] 42.4 % Normal 38.8-50.0 [facility] Comment on above: Performed By: #### H S TROP, BNP, PT, BMP, SCAN CBC, CK ####[address] Hemoglobin (Bld) [Mass/Vol] 14.4 g/dL Normal 13.0-17.0 [facility] Comment on above: Performed By: #### H S TROP, BNP, PT, BMP, SCAN CBC, CK ####[address] Lymphocytes (Bld) [#/Vol] 2.0 10*3/uL Normal 1.00-4.8 [facility] Comment on above: Performed By: #### H S TROP, BNP, PT, BMP, SCAN CBC, CK ####[address] Lymphocytes/100 WBC (Bld) 23.4 % Normal . [facility] Comment on above: Performed By: #### H S TROP, BNP, PT, BMP, SCAN CBC, CK ####[address] MCH (RBC) [Entitic mass] 25.6 pg Low 27.5-35.2 [facility] Comment on above: Performed By: #### H S TROP, BNP, PT, BMP, SCAN CBC, CK ####[address] MCV (RBC) [Entitic vol] 75.5 fL Low 83.5-101 [facility] Comment on above: Performed By: #### H S TROP, BNP, PT, BMP, SCAN CBC, CK ####[address] Mean Corpuscular HGB Conc 33.9 g/dL Normal 32.5-35.6 [facility] Comment on above: Performed By: #### H S TROP, BNP, PT, BMP, SCAN CBC, CK ####[address] Microcytosis Marked Normal [facility] Comment on above: Performed By: #### H S TROP, BNP, PT, BMP, SCAN CBC, CK ####[address] Monocytes (Bld) [#/Vol] 0.8 10*3/uL Normal 0.0-0.8 [facility] Comment on above: Performed By: #### H S TROP, BNP, PT, BMP, SCAN CBC, CK ####[address] Monocytes/100 WBC (Bld) 16.66 % Normal 0.00-20.00 [facility] Comment on above: Performed By: #### H S TROP, BNP, PT, BMP, SCAN CBC, CK ####[address] Monocytes/100 WBC (Bld) 9.5 % Normal . [facility] Comment on above: Performed By: #### H S TROP, BNP, PT, BMP, SCAN CBC, CK ####[address] Neutrophils (Bld) [#/Vol] 5.3 10*3/uL Normal 1.8-7.7 [facility] Comment on above: Performed By: #### H S TROP, BNP, PT, BMP, SCAN CBC, CK ####[address] Neutrophils/100 WBC (Bld) 61.8 % Normal . [facility] Comment on above: Performed By: #### H S TROP, BNP, PT, BMP, SCAN CBC, CK ####[address] NRBC% 0.2 /100{WBC} Normal 0-0.5 [facility] Comment on above: Performed By: #### H S TROP, BNP, PT, BMP, SCAN CBC, CK ####[address] Platelet Estimate Normal Normal Normal [facility] Comment on above: Performed By: #### H S TROP, BNP, PT, BMP, SCAN CBC, CK ####[address] [place] [address] [facility] Platelet mean volume (Bld) [Entitic vol] 9.8 fL Normal 6.6-10.1 [facility] Comment on above: Performed By: #### H S TROP, BNP, PT, BMP, SCAN CBC, CK ####[address] [address] [facility] Platelet Morphology Normal Normal Normal [facility] Comment on above: Result Comment: PERF ORMED BY:[address] [place], [place] [phone] MEDICAL DIRECTORMIKE CABAN M.D. Performed By: #### H S TROP, BNP, PT, BMP, SCAN CBC, CK ####[address] [address] [facility] Platelets (Bld) [#/Vol] 203 10*3/uL Normal 150-450 [facility] Comment on above: Performed By: #### H S TROP, BNP, PT, BMP, SCAN CBC, CK ####[address] [address] [facility] Poikilocytosis Slight Normal [facility] Comment on above: Performed By: #### H S TROP, BNP, PT, BMP, SCAN CBC, CK ####[address] [address] [facility] Polychromasia Slight Normal [facility] Comment on above: Performed By: #### H S TROP, BNP, PT, BMP, SCAN CBC, CK ####[address] [address] [facility] RBC (Bld) [#/Vol] 5.62 10*6/uL High 3.90-5.60 [facility] Comment on above: Performed By: #### H S TROP, BNP, PT, BMP, SCAN CBC, CK ####[address] [address] [facility] WBC (Bld) [#/Vol] 8.7 10*3/uL Normal 4.1-10.5 [facility] Comment on above: Performed By: #### H S TROP, BNP, PT, BMP, SCAN CBC, CK ####[id number] [facility] Serum or plasma anion gap de terminationOrdered By: Jez Dominguez on 10-10-2024 Anion gap [Moles/Vol] Serum or plasma an ion gap determination High 6.0-15.0 [facility] Sodium [Moles/volume] in Ser um or PlasmaOrdered By: Jez Dominguez on 10-10-2024 Sodium [Moles/Vol] Sodium [Moles/volume ] in Serum or Plasma Low 136-145 [facility] Troponin I High Sensitivityo n 10-10-2024 Troponin I High Sensitivity 6 Normal 0-20 [facility] Comment on above: Result Comment: The Troponin units of report have been changed to meet the Chest Pain Accreditation requirement, element EC5.M1l2. Troponin units are changed from pg/ml to ng/L. Also, the decimal is removed and results are in whole numbers.PERFORMED BY:[address], [place] [phone] MEDICAL DIRECTORMIKE CABAN M.D. Performed By: #### H S TROP, CK ####[address] [address] [facility] Troponin I High Sensitivity 6 Normal 0-20 [facility] Comment on above: Order Comment: Result Comment: The Troponin units of report have been changed to meet the Chest Pain Accreditation requirement, element EC5.M1l2. Troponin units are changed from pg/ml to ng/L. Also, the decimal is removed and results are in whole numbers.PERFORMED BY:[address] [place], [place] [phone] MEDICAL DIRECTORMIKE CABAN M.D. Performed By: #### H S TROP ####[place] [id number] [facility] Troponin I High Sensitivity 6 Normal 0-20 [facility] Comment on above: Result Comment: The Troponin units of report have been changed to meet the Chest Pain Accreditation requirement, element EC5.M1l2. Troponin units are changed from pg/ml to ng/L. Also, the decimal is removed and results are in whole numbers.PERFORMED BY:[id number] [place] [address] [phone] MEDICAL DIRECTORMIKE CABAN M.D. Performed By: #### H S TROP, BNP, PT, BMP, SCAN CBC, CK ####[facility] [place] [address] [facility] Troponin I.cardiac [Mass/vol ume] in Serum or Plasma by Detection limit <= 0.01 ng/Ordered By: Jez Dominguez on 10-10-2024 Troponin I.cardiac DL <= 0.01 ng/mL [Mass/Vol] Troponin I.cardiac [Mass/volume] in Serum or Plasma by Detection limit <= 0.01 ng/ 0-20 [facility] Comment on above: The Troponin units [...] [Mass/volume] in Serum or Plasma High 7-25 [facility] WBC Auto (Bld) [#/Vol]Ordere d By: Jez Dominguez on 10-10-2024 WBC (Bld) [#/Vol] Leukocytes [#/volume ] in Blood by Automated count 4.1-10.5 [facility] X-ray reportOrdered By: Олег Oscar on 10-10-2024 Study report [facility] [address] [place] [address] [place] [address] XRay Report Signed Patient: Myra Pickard SR MR#: [id number] : 1965 Acct:[id number] Age/Sex: 59 / M ADM Date: 5 Loc: ER Room: Type: PRE ER Attending [...] Oscar M.D. 10/10/2024 3:12 PM Dictation Location: [facility]--17 Transcribed By: [facility] 10/10/24 1512 Dictated By: Олег Oscar II, MD 10/10/24 1509 Signed By: 10/10/24 1512 [facility] Work Phone: XR chest 2V*on 10-10-2024 XR chest 2V* Normal [facility] Ambulatory Visit Summaryon 0 [...] Yeyo ROWE MD Where: [facility] [address] [place] [address]- You Need to Schedule the Following Appointments Follow Up with Yeyo ROWE MD, URL When: Where: [facility] [place] [address]- Medications What How Much When Instructions Unchanged tamsulosin (tamsulosin 0.4 mg Cap) 1 Capsules By Mouth 2 times a day Pickup at [facility]/pharmacy #[id number] Unchanged albuterol (ProAir HFA) Inhalation Every 6 [...] day Cont (more content not included)... Normal [facility] Ambulatory Visit Summary Ambulatory Visit Summary MYRA [...] to do next Scheduled Follow-Up Appointments Monday 8:20 AM EDT With: MARYBEL VANG PA-C Where: [facility] [address] [place] [address]- You Need to Schedule the Following Appointments Follow Up with SOLEDAD HERRERA, ROSALIA Garcia When: Where: [facility] [place] [address]- Medications What How Much When Instructions Unchanged [...] physician if (more content not included)... Normal [facility] Urology Office/Clinic Noteon 09-27-2024 Urology Office/Clinic Note [...] weeks in November 2022. Pt presented to [facility] ER 07/24/24 with sudden onset scrotal/groin pain. Labs wnl. CT and US without torsion, hernia, obvious internal infection. Did show small R hydrocele, <1cm L epididymal cyst, and small Niranjan varicocele. reported mild erythema to scrotum c/w cutaneous [...] 5. Antiplatelet or antithrombotic long-term use (Z79.02: [facility] (current) use of antithrombotics/antiplate lets) On Plavix. Hx of [place]. Elevated risk for periop complications in the future. Follow-up With When Contact Information Yeyo ROWE MD, URL [address] [place] [address]- Additional Instructions: 4 mos w/ PVR Patient Education Acute Urinary Retention, Male I, Mattie Foster, personally scribed for Dr. Rowe on 09/27/2024 11:59:07. . Documentation recorded by the scribeMattie, accurately reflects the services(s) I performed and decisions made by me. Authenticated by Dr. Rowe on 09/27/2024 12:02:59. 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 Normal [facility] Comment on above: Result Comment: Elec tronically Signed By: Yeyo ROWE MD\.br\Date and Time Signed: 09/27/24 12:03 EDT\.br\Electronically Co-Signed By: Mattie Foster\.br\Date and Time Co-Signed: 09/27/24 12:00 EDT HbA1c HPLC (Bld) [Mass fract ion]on 08-30-2024 HbA1c (Bld) [Mass fraction] Hemoglobin A1c/Hemoglobin.total in Blood by HPLC [facility] Alanine aminotransferase [En zymatic activity/volume] in Serum or PlasmaOrdered By: Kevon Viera on 08-13-2024 ALT [Catalytic activity/Vol] Alanine aminotransferase [Enzymatic activity/volume] in Serum or Plasma [facility] Albumin [Mass/volume] in Ser um or Plasma by Bromocresol green (BCG) dye binding methoOrdered By: Obaydah Daromar on 08-13-2024 Albumin BCG dye [Mass/Vol] Albumin [Mass/volume] in Serum or Plasma by Bromocresol green (BCG) dye binding metho Low 3.5-5.7 [facility] Alkaline phosphatase [Enzyma tic activity/volume] in Serum or PlasmaOrdered By: Obaydah Daromar on 08-13-2024 ALP [Catalytic activity/Vol] Alkaline phosphatase [Enzymatic activity/volume] in Serum or Plasma 34-104 [facility] Aspartate aminotransferase [ Enzymatic activity/volume] in Serum or PlasmaOrdered By: Obaydah Daromar on 08-13-2024 AST [Catalytic activity/Vol] Aspartate aminotransferase [Enzymatic activity/volume] in Serum or Plasma Low 13-39 [facility] Bilirubin.total [Mass/volume ] in Serum or PlasmaOrdered By: Obaydah Daromar on 08-13-2024 Bilirubin [Mass/Vol] Bilirubin.total [Mass/volume] in Serum or Plasma 0.3-1.0 [facility] Calcium [Mass/volume] in Ser um or PlasmaOrdered By: Obaydah Daromar on 08-13-2024 Calcium [Mass/Vol] Calcium [Mass/volume ] in Serum or Plasma Low 8.6-10.3 [facility] Carbon dioxide, total [Moles /volume] in Serum or PlasmaOrdered By: Obaydah Daromar on 08-13-2024 CO2 [Moles/Vol] Carbon dioxide, tota l [Moles/volume] in Serum or Plasma 21.0-31.0 [facility] Chloride [Moles/volume] in S ilia or PlasmaOrdered By: Obaydah Daromar on 08-13-2024 Chloride [Moles/Vol] Chloride [Moles/vol ume] in Serum or Plasma High 98-107 [facility] Comprehensive Metabolic Pane guy 08-13-2024 Albumin [Mass/Vol] 3.4 g/dL Low 3.5-5.7 [facility] Comment on above: Performed By: #### C BCNO, CMP ####[address] Albumin/Globulin [Mass ratio] 1.4 {ratio} Normal [facility] Comment on above: Performed By: #### C DANA, CMP ####[address] ALP [Catalytic activity/Vol] 93 U/L Normal 34-104 [facility] Comment on above: Performed By: #### C DANA, CMP ####[address] ALT [Catalytic activity/Vol] 9 U/L Normal 7-52 [facility] Comment on above: Performed By: #### C DANA, CMP ####[address] Anion gap [Moles/Vol] 10.7 mmol/L Normal 6.0-15.[address] [facility] Comment on above: Performed By: #### C DANA, CMP ####[address] AST [Catalytic activity/Vol] 12 U/L Low 13-39 [facility] Comment on above: Performed By: #### C DANA, CMP ####[address] Bilirubin [Mass/Vol] 0.3 mg/dL Normal 0.3-1.0 [facility] Comment on above: Performed By: #### C DANA, CMP ####[address] Calcium [Mass/Vol] 7.5 mg/dL Low 8.6-10.3 [facility] Comment on above: Performed By: #### C DANA, CMP ####[place] [id number] [facility] Chloride [Moles/Vol] 111 mmol/L High 98-107 [facility] Comment on above: Performed By: #### C DANA, CMP ####[place] [id number] [facility] CO2 [Moles/Vol] 21.5 mmol/L Normal 21.0-31.0 [facility] Comment on above: Performed By: #### C DANA, CMP ####[place] [id number] [facility] Creatinine [Mass/Vol] 1.59 mg/dL High 0.70-1.30 [facility] Comment on above: Performed By: #### C ADNA, CMP ####[address] Creatinine Clr Calc Pharmacy 54.91 Normal [facility] Comment on above: Result Comment: PERF ORMED BY:[address] [place], [place] [phone] MEDICAL DIRECTORMIKE CABAN M.D. Performed By: #### C DANA, CMP ####[address] Estimated GFR 49.698 mL/Min Normal [facility] Comment on above: Performed By: #### C DANA, CMP ####[address] Globulin (S) [Mass/Vol] 2.4 g/dL Normal [facility] Comment on above: Performed By: #### C DANA, CMP ####[address] Glucose [Mass/Vol] 140 mg/dL High 70-100 [facility] Comment on above: Result Comment: [place] Glucose Reference Range is dependent on time and content of last meal. Glucose of more than 200 mg/dL in a nonstressed, ambulatory subject supports the diagnosis of Diabetes Mellitus. ADA recommended reference range Performed By: #### C DANA, CMP ####[address] Potassium [Moles/Vol] 4.2 mmol/L Normal 3.5-5.1 [facility] Comment on above: Performed By: #### C DANA, CMP ####[address] [place] [address] [facility] Protein [Mass/Vol] 5.8 g/dL Low 6.4-8.9 [facility] Comment on above: Performed By: #### C DANA, CMP ####[place] [id number] Sodium [Moles/Vol] 139 mmol/L Normal 136-145 [facility] Comment on above: Performed By: #### C DANA, CMP ####[place] Urea nitrogen [Mass/Vol] 13 mg/dL Normal 7-25 [facility] Comment on above: Performed By: #### C DANA, CMP ####[place] [address] Creatinine [Mass/volume] in Serum or PlasmaOrdered By: Kevon Viera on 08-13-2024 Creatinine [Mass/Vol] Creatinine [Mass/v olume] in Serum or Plasma High 0.70-1.30 [facility] Erythrocyte distribution wid th Auto (RBC) [Ratio]Ordered By: Kevon [place] on 08-13-2024 Erythrocyte distribution width (RBC) [Ratio] Erythrocyte distribution width [Ratio] by Automated count High 12.0-14.8 [facility] Globulin Calc (S) [Mass/Vol] Ordered By: Kevon [place] on 08-13-2024 Globulin (S) [Mass/Vol] Serum globulin measurement by calculation (mass/volume) [facility] Glucose Glucometer (BldC) [M ass/Vol]Ordered By: Kevon Bazzir on 08-13-2024 Glucose [Mass/Vol] Capillary blood gluc ose measurement by glucometer (mass/volume) [facility] Comment on above: Random Glucose Refer ence Range is dependent on time and content of last meal. Glucose of more than 200 mg/dL in a nonstressed, ambulatory subject supports the diagnosis of Diabetes Mellitus. Glucose Poct Glucometerson 0 08-13-2024 Glucose [Mass/Vol] 150 mg/dL Normal [facility] Comment on above: Result Comment: [facility] Glucose Reference Range is dependent on time and content of last meal. Glucose of more than 200 mg/dL in a nonstressed, ambulatory subject supports the diagnosis of Diabetes Mellitus.PERFORMED BY:[address] [place], [place] [phone] MEDICAL DIRECTORMIKE CABAN M.D. Performed By: #### G LULS ####Point of Care testing, Glucose [Mass/Vol] 173 mg/dL Normal [facility] Comment on above: Result Comment: [facility] Glucose Reference Range is dependent on time and content of last meal. Glucose of more than 200 mg/dL in a nonstressed, ambulatory subject supports the diagnosis of Diabetes Mellitus.PERFORMED BY:[address] [place], [place] [phone] MEDICAL DIRECTORMIKE CABAN M.D. Performed By: #### G LULS ####Point of Care testing, Glucose [Mass/volume] in Ser um or PlasmaOrdered By: Obshelly Viera on 08-13-2024 Glucose [Mass/Vol] Glucose [Mass/volume ] in Serum or Plasma High 70-100 [facility] Comment on above: ADA recommended refe rence rangeRandom Glucose Reference Range is dependent on time and content of last meal. Glucose of more than 200 mg/dL in a nonstressed, ambulatory subject supports the diagnosis of Diabetes Mellitus. Hematocrit Auto (Bld) [Volum e fraction]Ordered By: Objoesdamaira [place] on 08-13-2024 Hematocrit (Bld) [Volume fraction] Hematocrit [Volume Fraction] of Blood by Automated count Low 38.8-50.0 [facility] Hemoglobin [Mass/volume] in BloodOrdered By: Objosedamaira Hay[place] on 08-13-2024 Hemoglobin (Bld) [Mass/Vol] Hemoglobin [Mass/volume] in Blood Low 13.0-17.0 [facility] Hemogram CBC Without Diffon 08-13-2024 Erythrocyte distribution width (RBC) [Ratio] 19.9 % High 12.0-14.8 [facility] Comment on above: Performed By: #### C BCNO, CMP ####[place] [id number] [facility] Hematocrit (Bld) [Volume fraction] 30.0 % Low 38.8-50.0 [facility] Comment on above: Performed By: #### C BCNO, CMP ####[place] [id number] [facility] Hemoglobin (Bld) [Mass/Vol] 9.5 g/dL Low 13.0-17.0 [facility] Comment on above: Performed By: #### C BCNO, CMP ####[place] [id number] [facility] MCH (RBC) [Entitic mass] 21.5 pg Low 27.5-35.2 [facility] Comment on above: Performed By: #### C BCNO, CMP ####[place] [id number] [facility] MCV (RBC) [Entitic vol] 67.8 fL Low 83.5-101 [facility] Comment on above: Performed By: #### C BCMARI, CMP ####[place] [id number] [facility] Mean Corpuscular HGB Conc 31.7 g/dL Low 32.5-35.6 [facility] Comment on above: Performed By: #### C BCNO, CMP ####[place] [id number] [facility] Platelet mean volume (Bld) [Entitic vol] 10.1 fL Normal 6.6-10.1 [facility] Comment on above: Result Comment: PERF ORMED BY:[address] [place], [place] [phone] MEDICAL DIRECTORMIKE CABAN M.D. Performed By: #### C BCNO, CMP ####[place] [id number] [facility] Platelets (Bld) [#/Vol] 153 10*3/uL Normal 150-450 [facility] Comment on above: Performed By: #### C BCNO, CMP ####[facility] [id number] [place] [address] [facility] RBC (Bld) [#/Vol] 4.42 10*6/uL Normal 3.90-5.60 [facility] Comment on above: Performed By: #### C BCNO, CMP ####[facility] [id number] [place] [address] [facility] WBC (Bld) [#/Vol] 8.0 10*3/uL Normal 4.1-10.5 [facility] Comment on above: Performed By: #### C BCNO, CMP ####[facility] [id number] [place] [id number] [facility] Leukocytes [#/volume] correc jorge for nucleated erythrocytes in Blood by Automated counOrdered By: Objosedah Beacon Holdingomar on 08-13-2024 WBC corrected for nucl RBC Auto (Bld) [#/Vol] Leukocytes [#/volume] corrected for nucleated erythrocytes in Blood by Automated coun 4.1-10.5 [facility] MCH Auto (RBC) [Entitic mass ]Ordered By: ObKukupiadah Beacon Holdingomar on 08-13-2024 MCH (RBC) [Entitic mass] MCH [Entitic mass] by Automated count Low 27.5-35.2 [facility] MCHC Auto (RBC) [Mass/Vol]Or dered By: Obaydah Beacon Holdingomar on 08-13-2024 MCHC (RBC) [Mass/Vol] MCHC [Mass/volume] by Automated count Low 32.5-35.6 [facility] MCV Auto (RBC) [Entitic vol] Ordered By: ObKukupiadah Beacon Holdingomar on 08-13-2024 MCV (RBC) [Entitic vol] MCV [Entitic volume] by Automated count Low 83.5-101 [facility] No Panel InformationOrdered By: Objosedamaira [place] on 08-13-2024 Estimated GFR (CKD-EPI) 49.698 mL/Min [facility] Creatinine Clearance (Chem 54.91 [facility] 49.698 mL/Min [facility] 54.91 [facility] Platelet mean volume Auto (B ld) [Entitic vol]Ordered By: Obaydah Daromar on 08-13-2024 Platelet mean volume (Bld) [Entitic vol] Platelet mean volume [Entitic volume] in Blood by Automated count 6.6-10.1 [facility] Platelets Auto (Bld) [#/Vol] Ordered By: Obaydah Daromar on 08-13-2024 Platelets (Bld) [#/Vol] Platelets [#/volume] in Blood by Automated count 150-450 [facility] Potassium [Moles/volume] in Serum or PlasmaOrdered By: Obaydah Daromar on 08-13-2024 Potassium [Moles/Vol] Potassium [Moles/v olume] in Serum or Plasma 3.5-5.1 [facility] Protein [Mass/volume] in Ser um or PlasmaOrdered By: Obaydah Daromar on 08-13-2024 Protein [Mass/Vol] Protein [Mass/volume ] in Serum or Plasma Low 6.4-8.9 [facility] RBC Auto (Bld) [#/Vol]Ordere d By: Obaydah Daromar on 08-13-2024 RBC (Bld) [#/Vol] Erythrocytes [#/volu me] in Blood by Automated count 3.90-5.60 [facility] Serum or plasma albumin/glob ulin mass ratioOrdered By: Obaydah Daromar on 08-13-2024 Albumin/Globulin [Mass ratio] Serum or plasma albumin/globulin mass ratio [facility] Serum or plasma anion gap de terminationOrdered By: Obaydah Daromar on 08-13-2024 Anion gap [Moles/Vol] Serum or plasma an ion gap determination 6.0-15.0 [facility] Sodium [Moles/volume] in Ser um or PlasmaOrdered By: Obaydah Daromar on 08-13-2024 Sodium [Moles/Vol] Sodium [Moles/volume ] in Serum or Plasma 136-145 [facility] Urea nitrogen [Mass/volume] in Serum or PlasmaOrdered By: Obaydah Daromar on 08-13-2024 Urea nitrogen [Mass/Vol] Urea nitrogen [Mass/volume] in Serum or Plasma 12-27 [facility] Albumin Levelon 08-12-2024 Albumin [Mass/Vol] 3.5 g/dL Normal 3.5-5.7 [facility] Comment on above: Result Comment: PERF ORMED BY:[address] [place], [place] [phone] MEDICAL DIRECTORMIKE CABAN M.D. Performed By: #### S CAN CBC, ALB, BMP ####[place] [address] [place] [id number] [facility] Anisocytosis LM Ql (Bld)Orde red By: Marge Andino on 08-12-2024 Anisocytosis Ql (Bld) Anisocytosis [Pres ence] in Blood by Light microscopy [facility] Basic Metabolic Panelon 08-03 Anion gap [Moles/Vol] 11.6 mmol/L Normal 6.0-15.0 [facility] Comment on above: Performed By: #### S CAN CBC, ALB, BMP ####[place] [id number] [facility] Calcium [Mass/Vol] 6.3 mg/dL Off scale low 8.6-10.3 [facility] Comment on above: Result Comment: Crit ical Result Called to and read back by: NOT FIRST TIME CRITICAL at: 08/12/2024 06:59:53 by:RAFAEL Performed By: #### S CAN CBC, ALB, BMP ####[place] [id number] [facility] Chloride [Moles/Vol] 107 mmol/L Normal 98-107 [facility] Comment on above: Performed By: #### S CAN CBC, ALB, BMP ####[place] [id number] [facility] CO2 [Moles/Vol] 25.1 mmol/L Normal 21.0-31.0 [facility] Comment on above: Performed By: #### S CAN CBC, ALB, BMP ####[address] [place] [address] [facility] Creatinine [Mass/Vol] 1.79 mg/dL Significan t change up 0.70-1.30 [facility] Comment on above: Performed By: #### S CAN CBC, ALB, BMP ####[place] [id number] [facility] Creatinine Clr Calc Pharmacy 48.77 Normal [facility] Comment on above: Result Comment: PERF ORMED BY:[address] [place], [place] [phone] MEDICAL DIRECTORMIKE CABAN M.D. Performed By: #### S CAN CBC, ALB, BMP ####[address] Estimated GFR 43.111 mL/Min Normal [facility] Comment on above: Performed By: #### S CAN CBC, ALB, BMP ####[address] Glucose [Mass/Vol] 91 mg/dL Normal 70-100 [facility] Comment on above: Result Comment: [place] Glucose Reference Range is dependent on time and content of last meal. Glucose of more than 200 mg/dL in a nonstressed, ambulatory subject supports the diagnosis of Diabetes Mellitus. ADA recommended reference range Performed By: #### S CAN CBC, ALB, BMP ####[place] [id number] [facility] Potassium [Moles/Vol] 3.7 mmol/L Normal 3.5-5.1 [facility] Comment on above: Performed By: #### S CAN CBC, ALB, BMP ####[place] [id number] [facility] Sodium [Moles/Vol] 140 mmol/L Normal 136-145 [facility] Comment on above: Performed By: #### S CAN CBC, ALB, BMP ####[place] [id number] [facility] Urea nitrogen [Mass/Vol] 20 mg/dL Normal 7-25 [facility] Comment on above: Performed By: #### S CAN CBC, ALB, BMP ####[facility] [address] [place] [address] [facility] Basophils Auto (Bld) [#/Vol] Ordered By: Marge Andino on 08-12-2024 Basophils (Bld) [#/Vol] Automated basophil count 0.0-0.2 [facility] Basophils/100 WBC Auto (Bld) Ordered By: Marge Andino on 08-12-2024 Basophils/100 WBC (Bld) Automated basophil % . [facility] Eosinophils Auto (Bld) [#/Vo l]Ordered By: Marge Andino on 08-12-2024 Eosinophils (Bld) [#/Vol] Automated eosinophil count 0.0-0.45 [facility] Eosinophils/100 WBC Auto (Bl d)Ordered By: Marge Andino on 08-12-2024 Eosinophils/100 WBC (Bld) Automated eosinophil % . [facility] Erythrocyte morphology findi ng [Identifier] in BloodOrdered By: Marge Andino on 08-12-2024 RBC morphology finding Nom (Bld) RBC morphology [facility] Glucose Poct Glucometerson 0 08-12-2024 Glucose [Mass/Vol] 168 mg/dL Normal [facility] Comment on above: Result Comment: [facility] Glucose Reference Range is dependent on time and content of last meal. Glucose of more than 200 mg/dL in a nonstressed, ambulatory subject supports the diagnosis of Diabetes Mellitus.PERFORMED BY:[address] [place], [place] [phone] MEDICAL DIRECTORMIKE CABAN M.D. Performed By: #### G LULS ####Point of Care testing, Glucose [Mass/Vol] 162 mg/dL Normal [facility] Comment on above: Result Comment: [facility] Glucose Reference Range is dependent on time and content of last meal. Glucose of more than 200 mg/dL in a nonstressed, ambulatory subject supports the diagnosis of Diabetes Mellitus.PERFORMED BY:[address] [place], [place] [phone] MEDICAL DIRECTORMIKE CABAN M.D. Performed By: #### G LULS ####Point of Care testing, Glucose [Mass/Vol] 179 mg/dL Normal [facility] Comment on above: Result Comment: [place] om Glucose Reference Range is dependent on time and content of last meal. Glucose of more than 200 mg/dL in a nonstressed, ambulatory subject supports the diagnosis of Diabetes Mellitus.PERFORMED BY:[address] [place], [place] [phone] MEDICAL DIRECTORMIKE CABAN M.D. Performed By: #### G LULS ####Point of Care testing, Glucose [Mass/Vol] 98 mg/dL Normal [facility] Comment on above: Result Comment: [place] om Glucose Reference Range is dependent on time and content of last meal. Glucose of more than 200 mg/dL in a nonstressed, ambulatory subject supports the diagnosis of Diabetes Mellitus.PERFORMED BY:[place] [address] [place], [place] [phone] MEDICAL DIRECTORMIKE CABAN M.D. Performed By: #### G LULS ####Point of Care testing, Hypochromia LM Ql (Bld)Order ed By: Marge Andino on 08-12-2024 Hypochromia Ql (Bld) Hypochromia [Presen ce] in Blood by Light microscopy [facility] Lymphocytes Auto (Bld) [#/Vo l]Ordered By: Marge Andino on 08-12-2024 Lymphocytes (Bld) [#/Vol] Lymphocytes [#/volume] in Blood by Automated count 1.00-4.8 [facility] Lymphocytes/100 WBC Auto (Bl d)Ordered By: Marge Andino on 08-12-2024 Lymphocytes/100 WBC (Bld) Lymphocytes/100 leukocytes in Blood by Automated count . [facility] Magnesiumon 08-12-2024 Magnesium [Mass/Vol] 2.9 mg/dL Significant change up 1.9-2.7 [facility] Comment on above: Result Comment: PERF ORMED BY:[facility] [place]ULDar[place]Mary[place], [place] [phone] MEDICAL DIRECTORMIKE CABAN M.D. Performed By: #### M G ####[facility] [id number] [place] [address] [facility] Magnesium [Mass/volume] in S ilia or PlasmaOrdered By: Maurice Francis on 08-12-2024 Magnesium [Mass/Vol] Magnesium [Mass/vol ume] in Serum or Plasma Significant change up 1.9-2.7 [facility] Comment on above: Delta: 0.5 on -0415 Microcytes LM Ql (Bld)Ordere d By: Marge Andino on 08-12-2024 Microcytes Ql (Bld) Microcytes [Presence ] in Blood by Light microscopy [facility] Monocytes Auto (Bld) [#/Vol] Ordered By: Marge Andino on 08-12-2024 Monocytes (Bld) [#/Vol] Automated blood monocyte count 0.0-0.8 [facility] Monocytes/100 WBC Auto (Bld) Ordered By: Marge Andino on 08-12-2024 Monocytes/100 WBC (Bld) Automated monocyte % . [facility] Neutrophils Auto (Bld) [#/Vo l]Ordered By: Marge Andino on 08-12-2024 Neutrophils (Bld) [#/Vol] Neutrophils [#/volume] in Blood by Automated count High 1.8-7.7 [facility] Neutrophils/100 WBC Auto (Bl d)Ordered By: Marge Andino on 08-12-2024 Neutrophils/100 WBC (Bld) Automated neutrophil % . [facility] No Panel InformationOrdered By: Marge Andino on 08-12-2024 CBC Comment See comment [facility] Comment on above: There is significant microcytosis which suggests the possibility of iron deficiency. Consider serum ferritin and iron studies. See comment [facility] Nucleated erythrocytes [Pres ence] in Blood by Automated countOrdered By: Marge Andino on 08-12-2024 Nucleated RBC Auto Ql (Bld) Nucleated erythrocytes [Presence] in Blood by Automated count 0-0.5 [facility] Ovalocytes [Presence] in Blo od by Light microscopyOrdered By: Marge Andino on 08-12-2024 Ovalocytes LM Ql (Bld) Ovalocyte detection [facility] Platelet adequacy [Presence] in Blood by Light microscopyOrdered By: Marge Andino on 08-12-2024 Platelets LM Ql (Bld) Platelet adequacy [Presence] in Blood by Light microscopy Normal [facility] Platelet morphology finding [Identifier] in BloodOrdered By: Marge Andino on 08-12-2024 Platelet morphology finding Nom (Bld) Platelet morphology finding [Identifier] in Blood Normal [facility] Poikilocytosis [Presence] in Blood by Light microscopyOrdered By: Marge Andino on 08-12-2024 Poikilocytosis LM Ql (Bld) Poikilocytosis [Presence] in Blood by Light microscopy [facility] Scan and CBCon 08-12-2024 Additional Comments Normal [facility] Comment on above: Result Comment: Ther e is significant microcytosis which suggests the possibility of iron deficiency. Consider serum ferritin and iron studies.PERFORMED BY:[address] [place], [place] [phone] MEDICAL DIRECTORMIKE CABAN M.D. Performed By: #### S CAN CBC, ALB, BMP ####[place] [id number] [facility] Anisocytosis Ql (Bld) Marked Normal [facility] Comment on above: Performed By: #### S CAN CBC, ALB, BMP ####[address] [address] [place] Basophils (Bld) [#/Vol] 0.1 10*3/uL Normal 0.0-0.2 [facility] Comment on above: Performed By: #### S CAN CBC, ALB, BMP ####[place] [id number] [facility] Basophils/100 WBC (Bld) 0.8 % Normal . [facility] Comment on above: Performed By: #### S CAN CBC, ALB, BMP ####[address] Eosinophils (Bld) [#/Vol] 0.3 10*3/uL Normal 0.0-0.45 [facility] Comment on above: Performed By: #### S CAN CBC, ALB, BMP ####[address] Eosinophils/100 WBC (Bld) 3.1 % Normal . [facility] Comment on above: Performed By: #### S CAN CBC, ALB, BMP ####[address] Erythrocyte distribution width (RBC) [Ratio] 20.0 % High 12.0-14.8 [facility] Comment on above: Performed By: #### S CAN CBC, ALB, BMP ####[address] Hematocrit (Bld) [Volume fraction] 29.5 % Low 38.8-50.0 [facility] Comment on above: Performed By: #### S CAN CBC, ALB, BMP ####[address] Hemoglobin (Bld) [Mass/Vol] 9.5 g/dL Low 13.0-17.0 [facility] Comment on above: Performed By: #### S CAN CBC, ALB, BMP ####[address] Hypochromasia Slight Normal [facility] Comment on above: Performed By: #### S CAN CBC, ALB, BMP ####[address] Lymphocytes (Bld) [#/Vol] 1.0 10*3/uL Normal 1.00-4.8 [facility] Comment on above: Performed By: #### S CAN CBC, ALB, BMP ####[address] Lymphocytes/100 WBC (Bld) 9.6 % Normal . [facility] Comment on above: Performed By: #### S CAN CBC, ALB, BMP ####[address] MCH (RBC) [Entitic mass] 21.9 pg Low 27.5-35.2 [facility] Comment on above: Performed By: #### S CAN CBC, ALB, BMP ####[address] MCV (RBC) [Entitic vol] 68.2 fL Low 83.5-101 [facility] Comment on above: Performed By: #### S CAN CBC, ALB, BMP ####[address] Mean Corpuscular HGB Conc 32.1 g/dL Low 32.5-35.6 [facility] Comment on above: Performed By: #### S CAN CBC, ALB, BMP ####[address] Microcytosis Moderate Normal [facility] Comment on above: Performed By: #### S CAN CBC, ALB, BMP ####[address] Monocytes (Bld) [#/Vol] 0.8 10*3/uL Normal 0.0-0.8 [facility] Comment on above: Performed By: #### S CAN CBC, ALB, BMP ####[address] Monocytes/100 WBC (Bld) 8.3 % Normal . [facility] Comment on above: Performed By: #### S CAN CBC, ALB, BMP ####[address] Neutrophils (Bld) [#/Vol] 8.0 10*3/uL High 1.8-7.7 [facility] Comment on above: Performed By: #### S CAN CBC, ALB, BMP ####[address] Neutrophils/100 WBC (Bld) 78.2 % Normal . [facility] Comment on above: Performed By: #### S CAN CBC, ALB, BMP ####[address] NRBC% 0.1 /100{WBC} Normal 0-0.5 [facility] Comment on above: Performed By: #### S CAN CBC, ALB, BMP ####[address] Ovalocytes Slight Normal [facility] Comment on above: Performed By: #### S CAN CBC, ALB, BMP ####[address] Platelet Estimate Normal Normal Normal [facility] Comment on above: Performed By: #### S CAN CBC, ALB, BMP ####[address] Platelet mean volume (Bld) [Entitic vol] 9.4 fL Normal 6.6-10.1 [facility] Comment on above: Performed By: #### S CAN CBC, ALB, BMP ####[address] Platelet Morphology Normal Normal Normal [facility] Comment on above: Performed By: #### S CAN CBC, ALB, BMP ####[address] Platelets (Bld) [#/Vol] 162 10*3/uL Normal 150-450 [facility] Comment on above: Performed By: #### S CAN CBC, ALB, BMP ####[place] [id number] [facility] Poikilocytosis Slight Normal [facility] Comment on above: Performed By: #### S CAN CBC, ALB, BMP ####[address] RBC (Bld) [#/Vol] 4.32 10*6/uL Normal 3.90-5.60 [facility] Comment on above: Performed By: #### S CAN CBC, ALB, BMP ####[facility] [id number] [place] [address] [facility] WBC (Bld) [#/Vol] 10.2 10*3/uL Normal 4.1-10.5 [facility] Comment on above: Performed By: #### S CAN CBC, ALB, BMP ####[facility] [address] [place] [id number] [facility] WBC Auto (Bld) [#/Vol]Ordere d By: Marge Andino on 08-12-2024 WBC (Bld) [#/Vol] Leukocytes [#/volume ] in Blood by Automated count 4.1-10.5 [facility] Alanine aminotransferase [En zymatic activity/volume] in Serum or PlasmaOrdered By: Francisco Duncan on 08-11-2024 ALT [Catalytic activity/Vol] Alanine aminotransferase [Enzymatic activity/volume] in Serum or Plasma 7-52 [facility] Albumin [Mass/volume] in Ser um or Plasma by Bromocresol green (BCG) dye binding methoOrdered By: Francisco Duncan on 08-11-2024 Albumin BCG dye [Mass/Vol] Albumin [Mass/volume] in Serum or Plasma by Bromocresol green (BCG) dye binding metho 3.5-5.7 [facility] Alkaline phosphatase [Enzyma tic activity/volume] in Serum or PlasmaOrdered By: Francisco Duncan on 08-11-2024 ALP [Catalytic activity/Vol] Alkaline phosphatase [Enzymatic activity/volume] in Serum or Plasma High 34-104 [facility] Anisocytosis LM Ql (Bld)Orde red By: Francisco Duncan on 08-11-2024 Anisocytosis Ql (Bld) Anisocytosis [Pres ence] in Blood by Light microscopy [facility] Appearance of UrineOrdered B y: Francisco Duncan on 08-11-2024 Appearance (U) Urine appearance Clear [facility] Aspartate aminotransferase [ Enzymatic activity/volume] in Serum or PlasmaOrdered By: Francisco Duncan on 08-11-2024 AST [Catalytic activity/Vol] Aspartate aminotransferase [Enzymatic activity/volume] in Serum or Plasma Low 13-39 [facility] Band form neutrophils/100 WB C Manual cnt (Bld)Ordered By: Francisco Duncan on 08-11-2024 Band form neutrophils/100 WBC (Bld) Peripheral white blood cell differential % bands, microscopic exam 0-5 [facility] Basophils Auto (Bld) [#/Vol] Ordered By: Francisco Duncan on 08-11-2024 Basophils (Bld) [#/Vol] Automated basophil count [facility] Basophils/100 WBC Auto (Bld) Ordered By: Francisco Duncan on 08-11-2024 Basophils/100 WBC (Bld) Automated basophil % [facility] Basophils/100 WBC Manual cnt (Bld)Ordered By: Francisco Duncan on 08-11-2024 Basophils/100 WBC (Bld) Basophils/100 leukocytes in Blood by Manual count 0-2 [facility] Bilirubin Test strip Ql (U)O rdered By: Francisco Duncan on 08-11-2024 Bilirubin Ql (U) Bilirubin.total [Presence] in Urine by Test strip Negative [facility] Bilirubin.total [Mass/volume ] in Serum or PlasmaOrdered By: Francisco Duncan on 08-11-2024 Bilirubin [Mass/Vol] Bilirubin.total [Mass/volume] in Serum or Plasma 0.3-1.0 [facility] [place] cells [Presence] in Blo od by Light microscopyOrdered By: Francisco Duncan on 08-11-2024 [place] cells LM Ql (Bld) [place] cells [Prese nce] in Blood by Light microscopy [facility] CT angio neckon 08-11-2024 CT angio neck Normal [facility] Calcium [Mass/volume] in Ser um or PlasmaOrdered By: Francisco Duncan on 08-11-2024 Calcium [Mass/Vol] Calcium [Mass/volume ] in Serum or Plasma Critically low 8.6-10.3 [facility] Comment on above: Critical Result Call ed to and read back by: MONCHO FINK at: 08/11/2024 04:56:06 by:RANDOLPH Carbon dioxide, total [Moles /volume] in Serum or PlasmaOrdered By: Francisco Duncan on 08-11-2024 CO2 [Moles/Vol] Carbon dioxide, tota l [Moles/volume] in Serum or Plasma 21.0-31.0 [facility] Chloride [Moles/volume] in S ilia or PlasmaOrdered By: Francisco Duncan on 08-11-2024 Chloride [Moles/Vol] Chloride [Moles/vol ume] in Serum or Plasma 98-107 [facility] Color Auto (U)Ordered By: Brandon Duncan on 08-11-2024 Color (U) Color of Urine by Auto Yellow [facility] Comprehensive Metabolic Pane guy 08-11-2024 Albumin [Mass/Vol] 4.2 g/dL Normal 3.5-5.7 [facility] Comment on above: Performed By: #### D IFF CBC, CK, PT, PTT, CMP, HS TROP ####[place] [id number] Albumin/Globulin [Mass ratio] 1.6 {ratio} Normal [facility] Comment on above: Performed By: #### D IFF CBC, CK, PT, PTT, CMP, HS TROP ####[address] ALP [Catalytic activity/Vol] 105 U/L High 34-104 [facility] Comment on above: Performed By: #### D IFF CBC, CK, PT, PTT, CMP, HS TROP ####[address] ALT [Catalytic activity/Vol] 11 U/L Normal 7-52 [facility] Comment on above: Performed By: #### D IFF CBC, CK, PT, PTT, CMP, HS TROP ####[place] [id number] [facility] Anion gap [Moles/Vol] 16.0 mmol/L High 6.0-15.0 [facility] Comment on above: Performed By: #### D IFF CBC, CK, PT, PTT, CMP, HS TROP ####[address] AST [Catalytic activity/Vol] 12 U/L Low 13-39 [facility] Comment on above: Performed By: #### D IFF CBC, CK, PT, PTT, CMP, HS TROP ####[address] Bilirubin [Mass/Vol] 0.4 mg/dL Normal 0.3-1.0 [facility] Comment on above: Performed By: #### D IFF CBC, CK, PT, PTT, CMP, HS TROP ####[place] [id number] [facility] Calcium [Mass/Vol] 6.1 mg/dL Off scale low 8.6-10.3 [facility] Comment on above: Result Comment: Crit ical Result Called to and read back by: MONCHO FNIK at: 08/11/2024 04:56:06 by:RANDOLPH Performed By: #### D IFF CBC, CK, PT, PTT, CMP, HS TROP ####[place] [id number] [facility] Chloride [Moles/Vol] 100 mmol/L Normal 98-107 [facility] Comment on above: Performed By: #### D IFF CBC, CK, PT, PTT, CMP, HS TROP ####[address] CO2 [Moles/Vol] 27.1 mmol/L Normal 21.0-31.0 [facility] Comment on above: Performed By: #### D IFF CBC, CK, PT, PTT, CMP, HS TROP ####[place] [id number] [facility] Creatinine [Mass/Vol] 2.62 mg/dL High 0.70-1.30 [facility] Comment on above: Performed By: #### D IFF CBC, CK, PT, PTT, CMP, HS TROP ####[place] [id number] [facility] Creatinine Clr Calc Pharmacy 33.32 Normal [facility] Comment on above: Result Comment: PERF ORMED BY:[address] [place], [place] [id number] MEDICAL DIRECTORMIKE CABAN M.D. Performed By: #### D IFF CBC, CK, PT, PTT, CMP, HS TROP ####[facility] [place] [address] [facility] Estimated GFR 27.293 mL/Min Normal [facility] Comment on above: Performed By: #### D IFF CBC, CK, PT, PTT, CMP, HS TROP ####[facility] [place] [address] [facility] Globulin (S) [Mass/Vol] 2.7 g/dL Normal [facility] Comment on above: Performed By: #### D IFF CBC, CK, PT, PTT, CMP, HS TROP ####[place] [address] [place] [id number] [facility] Glucose [Mass/Vol] 102 mg/dL High 70-100 [facility] Comment on above: Result Comment: [place] Glucose Reference Range is dependent on time and content of last meal. Glucose of more than 200 mg/dL in a nonstressed, ambulatory subject supports the diagnosis of Diabetes Mellitus. ADA recommended reference range Performed By: #### D IFF CBC, CK, PT, PTT, CMP, HS TROP ####[place] [address] [place] [id number] [facility] Potassium [Moles/Vol] 3.1 mmol/L Low 3.5-5.1 [facility] Comment on above: Performed By: #### D IFF CBC, CK, PT, PTT, CMP, HS TROP ####[id number] [place] [address] [facility] Protein [Mass/Vol] 6.9 g/dL Normal 6.4-8.9 [facility] Comment on above: Performed By: #### D IFF CBC, CK, PT, PTT, CMP, HS TROP ####[place] [id number] [facility] Sodium [Moles/Vol] 140 mmol/L Normal 136-145 [facility] Comment on above: Performed By: #### D IFF CBC, CK, PT, PTT, CMP, HS TROP ####[place] [id number] [facility] Urea nitrogen [Mass/Vol] 26 mg/dL High 7-25 [facility] Comment on above: Performed By: #### D IFF CBC, CK, PT, PTT, CMP, HS TROP ####[address] [place] [id number] [facility] Creatine Kinaseon 08-11-2024 CK [Catalytic activity/Vol] 305 U/L High 30 [facility] Comment on above: Performed By: #### D IFF CBC, CK, PT, PTT, CMP, HS TROP ####[address] Creatine kinase [Enzymatic a ctivity/volume] in Serum or PlasmaOrdered By: Francisco Duncan on 08-11-2024 CK [Catalytic activity/Vol] Creatine kinase [Enzymatic activity/volume] in Serum or Plasma High 30 [facility] Creatinine [Mass/volume] in Serum or PlasmaOrdered By: Francisco Duncan on 08-11-2024 Creatinine [Mass/Vol] Creatinine [Mass/v olume] in Serum or Plasma High 0.70-1.30 [facility] Diff and CBCon 08-11-2024 Anisocytosis Ql (Bld) Marked Normal [facility] Comment on above: Performed By: #### D IFF CBC, CK, PT, PTT, CMP, HS TROP ####[address] Band form neutrophils/100 WBC (Bld) 1 % Normal 0-5 [facility] Comment on above: Performed By: #### D IFF CBC, CK, PT, PTT, CMP, HS TROP ####[address] Basophils/100 WBC (Bld) 1 % Normal 0-2 [facility] Comment on above: Performed By: #### D IFF CBC, CK, PT, PTT, CMP, HS TROP ####[address] Crenated RBC Slight Normal [facility] Comment on above: Performed By: #### D IFF CBC, CK, PT, PTT, CMP, HS TROP ####[address] [place] [address] [place] Eosinophils/100 WBC (Bld) 4 % High 1-3 [facility] Comment on above: Performed By: #### D IFF CBC, CK, PT, PTT, CMP, HS TROP ####[address] Erythrocyte distribution width (RBC) [Ratio] 20.1 % High 12.0-14.8 [facility] Comment on above: Performed By: #### D IFF CBC, CK, PT, PTT, CMP, HS TROP ####[address] Hematocrit (Bld) [Volume fraction] 35.8 % Low 38.8-50.0 [facility] Comment on above: Performed By: #### D IFF CBC, CK, PT, PTT, CMP, HS TROP ####[address] Hemoglobin (Bld) [Mass/Vol] 11.6 g/dL Low 13.0-17.0 [facility] Comment on above: Performed By: #### D IFF CBC, CK, PT, PTT, CMP, HS TROP ####[address] Lymphocytes/100 WBC (Bld) 30 % Normal 18-42 [facility] Comment on above: Performed By: #### D IFF CBC, CK, PT, PTT, CMP, HS TROP ####[address] MCH (RBC) [Entitic mass] 21.8 pg Low 27.5-35.2 [facility] Comment on above: Performed By: #### D IFF CBC, CK, PT, PTT, CMP, HS TROP ####[address] MCV (RBC) [Entitic vol] 67.4 fL Low 83.5-101 [facility] Comment on above: Performed By: #### D IFF CBC, CK, PT, PTT, CMP, HS TROP ####[address] [place] [address] [facility] Mean Corpuscular HGB Conc 32.3 g/dL Low 32.5-35.6 [facility] Comment on above: Performed By: #### D IFF CBC, CK, PT, PTT, CMP, HS TROP ####[address] [address] [facility] Microcytosis Moderate Normal [facility] Comment on above: Performed By: #### D IFF CBC, CK, PT, PTT, CMP, HS TROP ####[address] [address] [facility] Monocytes/100 WBC (Bld) 17.90 % Normal 0.00-20.00 [facility] Comment on above: Performed By: #### D IFF CBC, CK, PT, PTT, CMP, HS TROP ####[place] [id number] [facility] Monocytes/100 WBC (Bld) 5 % Normal 2-11 [facility] Comment on above: Performed By: #### D IFF CBC, CK, PT, PTT, CMP, HS TROP ####[place] [phone] [facility] Ovalocytes Slight Normal [facility] Comment on above: Performed By: #### D IFF CBC, CK, PT, PTT, CMP, HS TROP ####[address] [address] [facility] Platelet Estimate Normal Normal Normal [facility] Comment on above: Performed By: #### D IFF CBC, CK, PT, PTT, CMP, HS TROP ####[address] [address] [facility] Platelet mean volume (Bld) [Entitic vol] 9.1 fL Normal 6.6-10.1 [facility] Comment on above: Result Comment: PERF ORMED BY:[address] [place], [place] [phone] MEDICAL DIRECTORMIKE CABAN M.D. Performed By: #### D IFF CBC, CK, PT, PTT, CMP, HS TROP ####[address] [address] [facility] Platelet Morphology Normal Normal Normal [facility] Comment on above: Result Comment: PERF ORMED BY:[address] [place] [phone] MEDICAL DIRECTORMIKE CABAN M.D. Performed By: #### D IFF CBC, CK, PT, PTT, CMP, HS TROP ####[address] [address] [facility] Platelets (Bld) [#/Vol] 209 10*3/uL Normal 150-450 [facility] Comment on above: Performed By: #### D IFF CBC, CK, PT, PTT, CMP, HS TROP ####[address] [address] [facility] Poikilocytosis Slight Normal [facility] Comment on above: Performed By: #### D IFF CBC, CK, PT, PTT, CMP, HS TROP ####[address] [address] [facility] Polychromasia Slight Normal [facility] Comment on above: Performed By: #### D IFF CBC, CK, PT, PTT, CMP, HS TROP ####[address] [address] [facility] RBC (Bld) [#/Vol] 5.32 10*6/uL Normal 3.90-5.60 [facility] Comment on above: Performed By: #### D IFF CBC, CK, PT, PTT, CMP, HS TROP ####[address] [address] [facility] Segmented neutrophils/100 WBC (Bld) 60 % Normal 50-70 [facility] Comment on above: Performed By: #### D IFF CBC, CK, PT, PTT, CMP, HS TROP ####[address] [address] [facility] WBC (Bld) [#/Vol] 10.7 10*3/uL High 4.1-10.5 [facility] Comment on above: Performed By: #### D IFF CBC, CK, PT, PTT, CMP, HS TROP ####[facility] [id number] [place] [address] [facility] ECG 12 lead ECGon 08-11-2024 ECG 12 lead ECG Normal [facility] Eosinophils Auto (Bld) [#/Vo l]Ordered By: Francisco Duncan on 08-11-2024 Eosinophils (Bld) [#/Vol] Automated eosinophil count [facility] Eosinophils/100 WBC Auto (Bl d)Ordered By: Francisco Duncan on 08-11-2024 Eosinophils/100 WBC (Bld) Automated eosinophil % [facility] Eosinophils/100 WBC Manual c nt (Bld)Ordered By: Francisco Duncan on 08-11-2024 Eosinophils/100 WBC (Bld) Eosinophils/100 leukocytes in Blood by Manual count High 1-3 [facility] Erythrocyte distribution wid th Auto (RBC) [Ratio]Ordered By: Francisco Duncan on 08-11-2024 Erythrocyte distribution width (RBC) [Ratio] Erythrocyte distribution width [Ratio] by Automated count High 12.0-14.8 [facility] Erythrocyte morphology findi ng [Identifier] in BloodOrdered By: Francisco Duncan on 08-11-2024 RBC morphology finding Nom (Bld) RBC morphology [facility] Ferritinon 08-11-2024 Ferritin [Mass/Vol] 5.3 ng/mL Low 23.9-336.2 [facility] Comment on above: Order Comment: Comme nt add Result Comment: PERF ORMED BY:[address] [place], [place] [phone] MEDICAL DIRECTORMIKE CABAN M.D. Performed By: #### F E and TIBC, LILA ####[facility] [id number] [place] [address] [facility] Ferritin [Mass/volume] in Se rum or PlasmaOrdered By: Marge Andino on 08-11-2024 Ferritin [Mass/Vol] Ferritin [Mass/volum e] in Serum or Plasma Low 23.9-336.2 [facility] Folate [Mass/volume] in Seru m or PlasmaOrdered By: Marge Andino on 08-11-2024 Folate [Mass/Vol] Folate [Mass/volume] in Serum or Plasma >5.9 [facility] Comment on above: Folate reference ran ge: >5.9 ng/mlThe WHO technical consultation on folate and vitamin [id number] has determined that folate concentrations lessthan 4 ng/ml are considered deficient. Globulin Calc (S) [Mass/Vol] Ordered By: Francisco Duncan on 08-11-2024 Globulin (S) [Mass/Vol] Serum globulin measurement by calculation (mass/volume) [facility] Glucose Poct Glucometerson 0 08-11-2024 Commemt1 Glu2: Cleaned Meter Normal [facility] Comment on above: Result Comment: PERF ORMED BY:[address] [place], [place] [phone] MEDICAL DIRECTORMIKE CABAN M.D. Performed By: #### G LULS ####Point of Care testing, Glucose [Mass/Vol] 241 mg/dL Normal [facility] Comment on above: Result Comment: [place] om Glucose Reference Range is dependent on time and content of last meal. Glucose of more than 200 mg/dL in a nonstressed, ambulatory subject supports the diagnosis of Diabetes Mellitus. Performed By: #### G LULS ####Point of Care testing, Glucose [Mass/Vol] 244 mg/dL Normal [facility] Comment on above: Result Comment: [place] om Glucose Reference Range is dependent on time and content of last meal. Glucose of more than 200 mg/dL in a nonstressed, ambulatory subject supports the diagnosis of Diabetes Mellitus.PERFORMED BY:[address] [place], [place] [phone] MEDICAL DIRECTORMIKE CABAN M.D. Performed By: #### G LULS ####Point of Care testing, Commemt1 Glu2: Cleaned Meter Normal [facility] Comment on above: Result Comment: PERF ORMED BY:[address] [place] [phone] MEDICAL DIRECTORMIKE CABAN M.D. Performed By: #### G LULS ####Point of Care testing, Glucose [Mass/Vol] 89 mg/dL Normal [facility] Comment on above: Result Comment: [place] Glucose Reference Range is dependent on time and content of last meal. Glucose of more than 200 mg/dL in a nonstressed, ambulatory subject supports the diagnosis of Diabetes Mellitus. Performed By: #### G LULS ####Point of Care testing, Glucose [Mass/Vol] 176 mg/dL Normal [facility] Comment on above: Result Comment: [place] Glucose Reference Range is dependent on time and content of last meal. Glucose of more than 200 mg/dL in a nonstressed, ambulatory subject supports the diagnosis of Diabetes Mellitus.PERFORMED BY:[facility] [place], [place] [phone] MEDICAL DIRECTORMIKE CABAN M.D. Performed By: #### G LULS ####Point of Care testing, Glucose [Mass/volume] in Ser um or PlasmaOrdered By: Francisco Duncan on 08-11-2024 Glucose [Mass/Vol] Glucose [Mass/volume ] in Serum or Plasma High 70-100 [facility] Comment on above: ADA recommended refe [...] in Urine by Test strip High Normal [facility] Hematocrit Auto (Bld) [Volum e fraction]Ordered By: Francisco Duncan on 08-11-2024 Hematocrit (Bld) [Volume fraction] Hematocrit [Volume Fraction] of Blood by Automated count Low 38.8-50.0 [facility] Hemoglobin Test strip Ql (U) Ordered By: Francisco Duncan on 08-11-2024 Hemoglobin Ql (U) Hemoglobin [Presence ] in Urine by Test strip Negative [facility] Hemoglobin [Mass/volume] in BloodOrdered By: Francisco Duncan on 08-11-2024 Hemoglobin (Bld) [Mass/Vol] Hemoglobin [Mass/volume] in Blood Low 13.0-17.0 [facility] INR in Platelet poor plasma by Coagulation assayOrdered By: Francisco Duncan on 08-11-2024 INR Coag (PPP) [Relative time] INR in Platelet poor plasma by Coagulation assay [facility] Comment on above: INR Therapeutic Rang [...] i n Serum or Plasma Low 50-212 [facility] Iron and TIBC Profileon 03-0 % Iron Saturation 7.0 % Low 20-50 [facility] Comment on above: Order Comment: Comme nt add Performed By: #### F E and TIBC, LILA ####[facility] [id number] [place] [id number] [facility] Iron [Mass/Vol] 29 ug/dL Low 50-212 [facility] Comment on above: Order Comment: Comme nt add Performed By: #### F E and TIBC, LILA ####[facility] [id number] [place] [address] [facility] Total Iron Binding Capacity 414 ug/dL Normal 255-450 [facility] Comment on above: Order Comment: Comme nt add Performed By: #### F E and TIBC, LILA ####[facility] [id number] [place] [address] [facility] Transferrin [Mass/Vol] 296 mg/dL Normal 203-362 Th e [facility] Comment on above: Order Comment: Comme nt add Performed By: #### F E and TIBC, LILA ####[facility] [id number] [place] [id number] [facility] Ketones Test strip Ql (U)Ord ered By: Francisco Duncan on 08-11-2024 Ketones Ql (U) Ketones [Presence] i n Urine by Test strip Negative [facility] Leukocyte esterase [Presence ] in Urine by Test stripOrdered By: Francisco Duncan on 08-11-2024 Leukocyte esterase Test strip Ql (U) Leukocyte esterase [Presence] in Urine by Test strip Negative [facility] Leukocytes [#/volume] correc jorge for nucleated erythrocytes in Blood by Automated counOrdered By: Francisco Duncan on 08-11-2024 WBC corrected for nucl RBC Auto (Bld) [#/Vol] Leukocytes [#/volume] corrected for nucleated erythrocytes in Blood by Automated coun High 4.1-10.5 [facility] Lymphocytes Auto (Bld) [#/Vo l]Ordered By: Francisco Duncan on 08-11-2024 Lymphocytes (Bld) [#/Vol] Lymphocytes [#/volume] in Blood by Automated count [facility] Lymphocytes/100 WBC Auto (Bl d)Ordered By: Francisco Duncan on 08-11-2024 Lymphocytes/100 WBC (Bld) Lymphocytes/100 leukocytes in Blood by Automated count [facility] Lymphocytes/100 WBC Manual c nt (Bld)Ordered By: Francisco Duncan on 08-11-2024 Lymphocytes/100 WBC (Bld) Lymphocytes/100 leukocytes in Blood by Manual count 18-42 [facility] MCH Auto (RBC) [Entitic mass ]Ordered By: Francisco Duncan on 08-11-2024 MCH (RBC) [Entitic mass] MCH [Entitic mass] by Automated count Low 27.5-35.2 [facility] MCHC Auto (RBC) [Mass/Vol]Or dered By: Francisco Duncan on 08-11-2024 MCHC (RBC) [Mass/Vol] MCHC [Mass/volume] by Automated count Low 32.5-35.6 [facility] MCV Auto (RBC) [Entitic vol] Ordered By: Francisco Duncan on 08-11-2024 MCV (RBC) [Entitic vol] MCV [Entitic volume] by Automated count Low 83.5-101 [facility] Magnesiumon 08-11-2024 Magnesium [Mass/Vol] 0.5 mg/dL Off scale low 1.9-2.7 T [facility] Comment on above: Order Comment: Comme nt add Result Comment: Crit ical Result S_MG: Called to and read back by: MONCHO FINK at: 08/11/2024 06:13:29 by:RANDOLPH Performed By: #### T SH3, MG, [id number], [id number] ####[facility] [id number] [place] [address] [facility] Magnesium [Mass/volume] in S ilia or PlasmaOrdered By: Marge Andino on 08-11-2024 Magnesium [Mass/Vol] Magnesium [Mass/vol ume] in Serum or Plasma Critically low 1.9-2.7 [facility] Comment on above: Critical Result S_MG : Called to and read back by: MONCHO FINK at: 08/11/2024 06:13:29 by:RANDOLPH Microcytes LM Ql (Bld)Ordere d By: Francisco Duncan on 08-11-2024 Microcytes Ql (Bld) Microcytes [Presence ] in Blood by Light microscopy [facility] Monocyte distribution width [Entitic volume] in Blood by AutomatedOrdered By: Francisco Duncan on 08-11-2024 Monocyte distribution width Auto (Bld) [Entitic vol] Monocyte distribution width [Entitic volume] in Blood by Automated 0.00-20.00 [facility] Monocytes Auto (Bld) [#/Vol] Ordered By: Francisco Duncan on 08-11-2024 Monocytes (Bld) [#/Vol] Automated blood monocyte count [facility] Monocytes/100 WBC Auto (Bld) Ordered By: Francisco Duncan on 08-11-2024 Monocytes/100 WBC (Bld) Automated monocyte % [facility] Monocytes/100 WBC Manual cnt (Bld)Ordered By: Francisco Duncan on 08-11-2024 Monocytes/100 WBC (Bld) Monocytes/100 leukocytes in Blood by Manual count -11 [facility] Neutrophils Auto (Bld) [#/Vo l]Ordered By: Francisco Duncan on 08-11-2024 Neutrophils (Bld) [#/Vol] Neutrophils [#/volume] in Blood by Automated count [facility] Neutrophils/100 WBC Auto (Bl d)Ordered By: Francisco Duncan on 08-11-2024 Neutrophils/100 WBC (Bld) Automated neutrophil % [facility] Nitrite Test strip Ql (U)Ord ered By: Francisco Duncan on 08-11-2024 Nitrite Ql (U) Nitrite [Presence] i n Urine by Test strip Negative [facility] No Panel InformationOrdered By: Kevon Viera on 08-11-2024 Bedside Glucose Comment Glu2: cleaned meter [facility] Glu2: cleaned meter [facility] No Panel InformationOrdered By: Francisco Duncan on 08-11-2024 Estimated GFR (CKD-EPI) 27.293 mL/Min [facility] Creatinine Clearance (Chem 33.32 [facility] Nucleated erythrocytes [Pres ence] in Blood by Automated countOrdered By: Francisco Duncan on 08-11-2024 Nucleated RBC Auto Ql (Bld) Nucleated erythrocytes [Presence] in Blood by Automated count [facility] Ovalocytes [Presence] in Blo od by Light microscopyOrdered By: Francisco Duncan on 08-11-2024 Ovalocytes LM Ql (Bld) Ovalocyte detection [facility] Parathyrin.intact [Mass/volu me] in Serum or PlasmaOrdered By: Francisco Duncan on 08-11-2024 Parathyrin.intact [Mass/Vol] Parathyrin.intact [Mass/volume] in Serum or Plasma [facility] Parathyroid Hormone Intacton 08-11-2024 Parathyroid Hormone Intact 38.3 pg/mL Normal [facility] Comment on above: Result Comment: PERF ORMED BY:[facility] [place], [place] [id number] MEDICAL DIRECTORMIKE CABAN M.D. Performed By: #### P TH, PHOS ####[facility] [id number] [place] [address] [place] Partial Thromboplastin Timeo n 08-11-2024 aPTT Coag (Bld) [Time] 30.9 s Normal 25.1-36.5 Th e [facility] Comment on above: Result Comment: A he matocrit value greater than 55% may lead to inaccurate results in coagulation testing. Patients having hematocrit values >55% require a special collection tube for coagulation studies. Please contact the laboratory at [phone] for redraw instructions.PERFORMED BY:[address] [place], [place] [phone] MEDICAL DIRECTORMIKE CABAN M.D. Performed By: #### D IFF CBC, CK, PT, PTT, CMP, HS TROP ####[address] [address] [facility] Phosphate [Mass/volume] in S ilia or PlasmaOrdered By: Francisco Duncan on 08-11-2024 Phosphate [Mass/Vol] Phosphate [Mass/vol ume] in Serum or Plasma High 2.5-4.5 [facility] Phosphoruson 08-11-2024 Phosphate [Mass/Vol] 4.8 mg/dL High 2.5-4.5 [facility] Comment on above: Result Comment: PERF ORMED BY:[address] [place], [place] [phone] MEDICAL DIRECTORMIKE CBAAN M.D. Performed By: #### P TH, PHOS ####[address] [address] [facility] Platelet adequacy [Presence] in Blood by Light microscopyOrdered By: Francisco Duncan on 08-11-2024 Platelets LM Ql (Bld) Platelet adequacy [Presence] in Blood by Light microscopy Normal [facility] Platelet mean volume Auto (B ld) [Entitic vol]Ordered By: Francisco Duncan on 08-11-2024 Platelet mean volume (Bld) [Entitic vol] Platelet mean volume [Entitic volume] in Blood by Automated count 6.6-10.1 [facility] Platelet morphology finding [Identifier] in BloodOrdered By: Francisco Duncan on 08-11-2024 Platelet morphology finding Nom (Bld) Platelet morphology finding [Identifier] in Blood Normal [facility] Platelets Auto (Bld) [#/Vol] Ordered By: Francisco Duncan on 08-11-2024 Platelets (Bld) [#/Vol] Platelets [#/volume] in Blood by Automated count 150-450 [facility] Poikilocytosis [Presence] in Blood by Light microscopyOrdered By: Francisco Duncan on 08-11-2024 Poikilocytosis LM Ql (Bld) Poikilocytosis [Presence] in Blood by Light microscopy [facility] Polychromasia [Presence] in Blood by Light microscopyOrdered By: Francisco Duncan on 08-11-2024 Polychromasia LM Ql (Bld) Polychromasia [Presence] in Blood by Light microscopy [facility] Potassium [Moles/volume] in Serum or PlasmaOrdered By: Francisco Duncan on 08-11-2024 Potassium [Moles/Vol] Potassium [Moles/v olume] in Serum or Plasma Low 3.5-5.1 [facility] Protein Test strip (U) [Mass /Vol]Ordered By: Francisco Duncan on 08-11-2024 Protein (U) [Mass/Vol] Protein [Mass/vol ume] in Urine by Test strip Negative [facility] Protein [Mass/volume] in Ser um or PlasmaOrdered By: Francisco Duncan on 08-11-2024 Protein [Mass/Vol] Protein [Mass/volume ] in Serum or Plasma 6.4-8.9 [facility] Prothrombin Time INRon 08-11 INR Coag (PPP) [Relative time] 1.2 {INR} Normal [facility] Comment on above: Result [...] CBC, CK, PT, PTT, CMP, HS TROP ####[facility] [id number] [place] [address] [facility] PT Coag (PPP) [Time] 13.8 s High 9.0-12.9 [facility] Comment on above: Result Comment: A he matocrit value greater than 55% may lead to inaccurate results in coagulation testing. Patients having hematocrit values >55% require a special collection tube for coagulation studies. Please contact the laboratory at [phone] for redraw instructions. Performed By: #### D IFF CBC, CK, PT, PTT, CMP, HS TROP ####[facility] [id number] [place] [id number] [facility] Prothrombin time (PT)Ordered By: Francisco Duncan on 08-11-2024 PT Coag (PPP) [Time] Prothrombin time (PT) High 9.0- 12.9 [facility] Comment on above: A hematocrit value g reater than 55% may lead to inaccurate results in coagulation testing. Patients having hematocrit values >55% require a special collection tube for coagulation studies. Please contact the laboratory at [phone] for redraw instructions. RBC Auto (Bld) [#/Vol]Ordere d By: Francisco Duncan on 08-11-2024 RBC (Bld) [#/Vol] Erythrocytes [#/volu me] in Blood by Automated count 3.90-5.60 [facility] Segmented neutrophils/100 WB C Manual cnt (Bld)Ordered By: Francisco Duncan on 08-11-2024 Segmented neutrophils/100 WBC (Bld) Manual blood segmented neutrophils/100 leukocytes 50-70 [facility] Serum or plasma albumin/glob ulin mass ratioOrdered By: Francisco Duncan on 08-11-2024 Albumin/Globulin [Mass ratio] Serum or plasma albumin/globulin mass ratio [facility] Serum or plasma anion gap de terminationOrdered By: Francisco Duncan on 08-11-2024 Anion gap [Moles/Vol] Serum or plasma an ion gap determination High 6.0-15.0 [facility] Serum or plasma iron binding capacity measurement (mass/volume)Ordered By: Marge Andino on 08-11-2024 Iron binding capacity [Mass/Vol] Iron binding capacity [Mass/volume] in Serum or Plasma 255-450 [facility] Serum or plasma iron saturat ion measurement (mass fraction)Ordered By: Marge Andino on 08-11-2024 Iron saturation [Mass fraction] Iron saturation [Mass Fraction] in Serum or Plasma Low 20-50 [facility] Sodium [Moles/volume] in Ser um or PlasmaOrdered By: Francisco Duncan on 08-11-2024 Sodium [Moles/Vol] Sodium [Moles/volume ] in Serum or Plasma 136-145 [facility] Specific gravity Test strip (U) [Rel density]Ordered By: Francisco Duncan on 08-11-2024 Specific gravity (U) [Rel density] Specific gravity of Urine by Test strip 1.001-1.03 0 [facility] Thyroid Stimulating Hormoneo n 08-11-2024 TSH Qn 4.18 m[IU]/L Normal 0.45-5.33 [facility] Comment on above: Order Comment: Comme nt add Performed By: #### T SH3, MG, [id number], [id number] ####[facility] [id number] [place] [address] [facility] Thyrotropin [Units/volume] i n Serum or PlasmaOrdered By: Marge Andino on 08-11-2024 TSH Qn Thyrotropin [Units/volume] in Serum or Plasma 0.45-5.33 [facility] Transferrin [Mass/volume] in Serum or PlasmaOrdered By: Marge Andino on 08-11-2024 Transferrin [Mass/Vol] Transferrin [Mass /volume] in Serum or Plasma 203-362 [facility] Troponin I High Sensitivityo n 08-11-2024 Troponin I High Sensitivity 6 Normal 0-20 [facility] Comment on above: Result Comment: The Troponin units of report have been changed to meet the Chest Pain Accreditation requirement, element EC5.M1l2. Troponin units are changed from pg/ml to ng/L. Also, the decimal is removed and results are in whole numbers.PERFORMED BY:[id number] [place] [address] [place], [place] [phone] MEDICAL DIRECTORMIKE CABAN M.D. Performed By: #### D IFF CBC, CK, PT, PTT, CMP, HS TROP ####[facility] [id number] [place] [address] [facility] Troponin I.cardiac [Mass/vol ume] in Serum or Plasma by Detection limit <= 0.01 ng/Ordered By: Francisco Duncan on 08-11-2024 Troponin I.cardiac DL <= 0.01 ng/mL [Mass/Vol] Troponin I.cardiac [Mass/volume] in Serum or Plasma by Detection limit <= 0.01 ng/ 0-20 [facility] Comment on above: The Troponin units [...] [Mass/volume] in Serum or Plasma High 7-25 [facility] Urinalysison 08-11-2024 Appearance (U) Clear Normal Clear [facility] Comment on above: Order Comment: Name Collection Type:: Voided Performed By: #### U A ####[place] [id number] [facility] Bilirubin,Urine Negative Normal Negative [facility] Comment on above: Order Comment: Name Collection Type:: Voided Performed By: #### U A ####[place] [id number] [facility] Color (U) Light-Yellow Normal Yellow [facility] Comment on above: Order Comment: Name Collection Type:: Voided Performed By: #### U A ####[address] [address] [facility] Glucose Ql (U) 500 mg/dL High Normal [facility] Comment on above: Order Comment: Name Collection Type:: Voided Performed By: #### U A ####[address] [address] [facility] Ketones Ql (U) Negative Normal Negative [facility] Comment on above: Order Comment: Name Collection Type:: Voided Performed By: #### U A ####[address] [address] [facility] Leukocyte esterase Test strip Ql (U) Negative Normal Negative [facility] Comment on above: Order Comment: Name Collection Type:: Voided Performed By: #### U A ####[address] [address] [facility] Nitrite,Urine Negative Normal Negative [facility] Comment on above: Order Comment: Name Collection Type:: Voided Performed By: #### U A ####[address] [address] [facility] Occult Blood,Urine Negative Normal Negative [facility] Comment on above: Order Comment: Name Collection Type:: Voided Result Comment: PERF ORMED BY:[address] [place], [place] [phone] MEDICAL DIRECTORMIKE CABAN M.D. Performed By: #### U A ####[place] [id number] [facility] pH (U) 5.5 [pH] Normal 5.0-9.0 [facility] Comment on above: Order Comment: Name Collection Type:: Voided Performed By: #### U A ####[place] [id number] [facility] Protein,Urine Negative Normal Negative [facility] Comment on above: Order Comment: Name Collection Type:: Voided Performed By: #### U A ####[place] [id number] [facility] Specificy [place],Urine 1.024 Normal 1.001-1.03 0 [facility] Comment on above: Order Comment: Name Collection Type:: Voided Performed By: #### U A ####[place] [id number] [facility] Urobilinogen,Urine Normal Normal Normal [facility] Comment on above: Order Comment: Name Collection Type:: Voided Performed By: #### U A ####[place] [id number] [facility] Urobilinogen Test strip (U) [Mass/Vol]Ordered By: Francisco Duncan on 08-11-2024 Urobilinogen (U) [Mass/Vol] Urobilinogen [Mass/volume] in Urine by Test strip Normal [facility] Vit. B12/Folate Profileon Cobalamin (Vitamin B12) [Mass/Vol] 129 pg/mL Low 180-914 [facility] Comment on above: Order Comment: Comme nt add Performed By: #### T SH3, MG, [id number], [id number] ####[facility] [place] [address] [facility] Folate 14.0 ng/mL Normal >5.9 [facility] Comment on above: Order Comment: Comme nt add Result Comment: Aure te reference range: >5.9 ng/ml The WHO technical consultation on folate and vitamin b12 deficiencies has determined that folate concentrations less than 4 ng/ml are considered deficient. Performed By: #### T SH3, MG, [id number], [id number] ####[place] [address] [place] [address] [facility] Vitamin B12 ser/plasOrdered By: Marge Andino on 08-11-2024 Cobalamin (Vitamin B12) [Mass/Vol] Vitamin B12 ser/plas Low 180-914 [facility] Vitamin D 25 Hydroxy Totalon 08-11-2024 Vitamin D 25 Hydroxy Total 15.0 ng/mL Low 30-100 [facility] Comment on above: Order Comment: Comme nt add Result Comment: SUBHA MIN D STATUS 25([place])VITAMIN D RANGE (ng/mL) Deficient <20 Insufficient 20 to <30 Sufficient 30 to 100 Reference: Marisol MF,Ibrahima NC, Kasey LONG, et al. Evaluation,treatment, and prevention of vitamin D deficiency; an Endocrine Society clinical practice guideline. JCEM. 2010; 96(7):1911-30.PERFORMED BY:[place] [address] [address] [place], [place] [phone] MEDICAL DIRECTORMIKE CABAN M.D. Performed By: #### T SH3, MG, [id number], [id number] ####[place] [address] [place] [address] [facility] Vitamin D+Metabolites [Mass/ volume] in Serum or PlasmaOrdered By: Marge Andino on 08-11-2024 Vitamin D+Metabolites [Mass/Vol] Vitamin D+Metabolites [Mass/volume] in Serum or Plasma Low 30-100 [facility] Comment on above: VITAMIN D STATUS 25( [place])VITAMIN D RANGE (ng/mL) Deficient <20 Insufficient 20 to <30Sufficient 30 to 100Reference: Marisol MF,Ibrahima NC, Kasey LONG, et al. Evaluation,treatment, and prevention of vitamin D deficiency; an Endocrine Society clinical practice guideline. JCEM. 2010; 96(7):1911-30. WBC Auto (Bld) [#/Vol]Ordere d By: Francisco Duncan on 08-11-2024 WBC (Bld) [#/Vol] Leukocytes [#/volume ] in Blood by Automated count High 4.1-10.5 [facility] X-ray reportOrdered By: Jose Lind on 08-11-2024 Study report [facility] [place] [address] XRay Report Signed Patient: Myra Pickard SR MR#: [id number] : 1965 Acct:[id number] Age/Sex: 59 / M ADM Date: 5 Loc: Room: [address] [place] [address] Type: ADM IN Attending Dr: Kevon Viera [...] Sudeep Lind M.D.08/11/2024 10:06 AM Dictation Location: [place] [address] Transcribed By: [facility] 08/11/24 1006 Dictated By: Sudeep Lind DO 08/11/24 1006 Signed By: 08/11/24 1006 [facility] XR chest 1V portableon 08-11 XR chest 1V portable Normal [facility] aPTT in Platelet poor plasma by Coagulation assayOrdered By: Francsico Duncan on 08-11-2024 aPTT Coag (PPP) [Time] Activated partial thromboplastin time (aPTT) in platelet poor plasma by coagulation a 25.1-36.5 [facility] Comment on above: A hematocrit value g reater than 55% may lead to inaccurate results in coagulation testing. Patients having hematocrit values >55% require a special collection tube for coagulation studies. Please contact the laboratory at [phone] for redraw instructions. pH Test strip (U)Ordered By: Francisco Duncan on 08-11-2024 pH (U) pH of Urine by Test strip 5.0-9.0 [facility] Urology Office/Clinic Noteon 08-06-2024 Urology Office/Clinic Note Urology Office/Clinic Note Chief Complaint Patient is here for scrotal pain HPI Staff Patient is here for f/u to [facility] ER 07/24/24 due to scrotal pain. [...] w Right BKA. 1. Orchitis (N45.2: Orchitis) [facility] ER 07/24/24 w sudden onset scrotal/groin pain. [...] pain meds. Will provide limited rx Ultram. 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 08/02/2024 09:33:52 I certify that I have reviewed the OARRS report and all PDMP information in this chart. Follow-up With When Contact Information [facility] Additional Instructions: Only if needed/new problems arise. [...] [Hypertension] [place] (myocardial infarction) NIDDM Procedure/Surgical History BKA - [...] cap(s), Oral, (more content not included)... Normal [facility] Comment on above: Result Comment: Elec tronically Signed By: RASHI KURTZ, MARYBEL Colmenares\.nile\Date and Time Signed: 08/06/24 12:28 EST Basophils Auto (Bld) [#/Vol] on 07-24-2024 Basophils (Bld) [#/Vol] Automated basophil count 0.0-0.1 [facility] Basophils/100 WBC Auto (Bld) on 07-24-2024 Basophils/100 WBC (Bld) Automated basophil % 0.2-2.0 [facility] Eosinophils/100 WBC Auto (Bl d)on 07-24-2024 Eosinophils/100 WBC (Bld) Automated eosinophil % 0.9-7.0 [facility] Erythrocyte distribution wid th Auto (RBC) [Ratio]on 07-24-2024 Erythrocyte distribution width (RBC) [Ratio] Erythrocyte distribution width [Ratio] by Automated count High 11.0-15.0 [facility] Estimated glomerular filtrat ion rate (GFR) non- Americanon 07-24-2024 GFR/1.73 sq M.predicted among non-blacks MDRD (S/P/Bld) [Vol rate/Area] Estimated glomerular filtration rate (GFR) non- Low >=60 mL/min/1.7 3m 2 [facility] Globulin Calc (S) [Mass/Vol] on 07-24-2024 Globulin (S) [Mass/Vol] Serum globulin measurement by calculation (mass/volume) [facility] Hematocrit Auto (Bld) [Volum e fraction]on 07-24-2024 Hematocrit (Bld) [Volume fraction] Hematocrit [Volume Fraction] of Blood by Automated count Low 42.0-54.0 [facility] Hemoglobin [Mass/volume] in Bloodon 07-24-2024 Hemoglobin (Bld) [Mass/Vol] Hemoglobin [Mass/volume] in Blood Low 14.0-18.0 [facility] Laboratory - Chemistry and C hemistry - challengeon 07-24-2024 Albumin [Mass/Vol] 3.3 g/dL Low 3.4-5.0 [facility] ALP [Catalytic activity/Vol] 111 U/L 46-116 [facility] ALT [Catalytic activity/Vol] 16 U/L 16-63 [facility] AST [Catalytic activity/Vol] 11 U/L Low 15-37 [facility] Bilirubin [Mass/Vol] 0.4 mg/dL 0.2-1.0 [facility] Calcium [Mass/Vol] 8.4 mg/dL Low 8.5-10.1 [facility] Chloride [Moles/Vol] 102 mmol/L 98-107 [facility] CO2 [Moles/Vol] 26.3 mmol/L 21.0-32.0 [facility] Creatinine [Mass/Vol] 2.28 mg/dL High 0.70-1.30 [facility] GFR/1.73 sq M.predicted MDRD (S/P/Bld) [Vol rate/Area] 36 mL/min/{1.73_m2} Low >=60 mL/min/1.7 3m 2 [facility] Glucose [Mass/Vol] 177 mg/dL High 74-106 [facility] Lactate [Moles/Vol] 1.8 mmol/L 0.4-2.0 [facility] Potassium [Moles/Vol] 3.4 mmol/L Low 3.5-5.1 [facility] Protein [Mass/Vol] 7.0 g/dL 6.4-8.2 [facility] Sodium [Moles/Vol] 139 mmol/L 136-145 [facility] Urea nitrogen [Mass/Vol] 22.0 mg/dL High 7.0-18.0 [facility] Urea nitrogen/Creatinine [Mass ratio] 9.6 mg/mg [facility] Laboratory - Hematology and Cell countson 07-24-2024 Immature granulocytes/100 WBC (Bld) 0.3 % 0.0-0.5 [facility] Leukocytes [#/volume] correc jorge for nucleated erythrocytes in Blood by Automated counon 07-24-2024 WBC corrected for nucl RBC Auto (Bld) [#/Vol] Leukocytes [#/volume] corrected for nucleated erythrocytes in Blood by Automated coun 4.0-11.0 [facility] Lymphocytes Auto (Bld) [#/Vo l]on 07-24-2024 Lymphocytes (Bld) [#/Vol] Lymphocytes [#/volume] in Blood by Automated count 1.2-3.8 [facility] Lymphocytes/100 WBC Auto (Bl d)on 07-24-2024 Lymphocytes/100 WBC (Bld) Lymphocytes/100 leukocytes in Blood by Automated count 20.5-60.0 [facility] MCH Auto (RBC) [Entitic mass ]on 07-24-2024 MCH (RBC) [Entitic mass] MCH [Entitic mass] by Automated count Low 25.9-34.0 [facility] MCHC Auto (RBC) [Mass/Vol]on 07-24-2024 MCHC (RBC) [Mass/Vol] MCHC [Mass/volume] by Automated count Low 29.9-35.2 [facility] MCV Auto (RBC) [Entitic vol] on 07-24-2024 MCV (RBC) [Entitic vol] MCV [Entitic volume] by Automated count Low 80.0-94.0 [facility] Monocytes Auto (Bld) [#/Vol] on 07-24-2024 Monocytes (Bld) [#/Vol] Automated blood monocyte count High 0.3-0.8 [facility] Monocytes/100 WBC Auto (Bld) on 07-24-2024 Monocytes/100 WBC (Bld) Automated monocyte % 1.7-12.0 [facility] Neutrophils Auto (Bld) [#/Vo l]on 07-24-2024 Neutrophils (Bld) [#/Vol] Neutrophils [#/volume] in Blood by Automated count 1.4-6.5 [facility] Neutrophils/100 WBC Auto (Bl d)on 07-24-2024 Neutrophils/100 WBC (Bld) Automated neutrophil % 43.0-75.0 [facility] No Panel Informationon 07-24 Eosinophils # (Auto) 0.4 10 3/uL 0.0-0.7 [facility] Immature Granulocyte # (Auto) 0.03 10 3/uL 0.00-0.03 [facility] Platelet mean volume Auto (B ld) [Entitic vol]on 07-24-2024 Platelet mean volume (Bld) [Entitic vol] Platelet mean volume [Entitic volume] in Blood by Automated count 9.5-13.5 [facility] Platelets Auto (Bld) [#/Vol] on 07-24-2024 Platelets (Bld) [#/Vol] Platelets [#/volume] in Blood by Automated count 150-450 [facility] RBC Auto (Bld) [#/Vol]on RBC (Bld) [#/Vol] Erythrocytes [#/volu me] in Blood by Automated count 4.70-6.10 [facility] Serum or plasma albumin/glob ulin mass ratioon 07-24-2024 Albumin/Globulin [Mass ratio] Serum or plasma albumin/globulin mass ratio [facility] Serum or plasma anion gap de terminationon 07-24-2024 Anion gap [Moles/Vol] Serum or plasma an ion gap determination [facility] PSA Totalon 05-28-2024 Prostate specific Ag [Mass/Vol] 1.0 ng/mL Normal 0.1-3.5 [facility] Comment on above: Result Comment: The concentration of PSA determined by different manufacturers can vary due to differences in assay methods and reagent specificity. Values obtained from different assay methods cannot be used interchangeably. The methodology used for this result was chemiluminescence using [employer]'s Access Hybritech PSA reagent. Performed By: #### 1 [id number] #### [facility] [address] [place] [address] Ambulatory Visit Summaryon 1 07-28-2023 Ambulatory Visit [...] Where: [facility] [address], [place] [address] [phone] Medications What How Much When Instructions Unchanged tamsulosin (tamsulosin 0.4 mg Cap) 1 Capsules By Mouth 2 times a day Pickup at [facility]/pharmacy #[id number] Unchanged albuterol (ProAir HFA) Inhalation Every 6 [...] concerns Unchanged (more content not included)... Normal [facility] Urology Office/Clinic Noteon 05-27-2024 Urology Office/Clinic Note [...] urination. -Cont Tamsulosin bid. Refills sent to [facility]. 2. Screening PSA (prostate specific antigen) (Z12.5: [...] Blum, URL [facility] [address], [facility] [place] [address] [phone] Additional Instructions: 1 yr Patient Education Benign [...] [Hypertension] [place] (myocardial infarction) NIDDM Procedure/Surgical History BKA - [...] Daily me (more content not included)... Normal [facility] Comment on above: Result Comment: Elec tronically Signed By: Yeyo ROWE MD\.br\Date and Time Signed: 05/27/24 16:02 EST\.br\Electronically Co-Signed By: Sharri Mora\.br\Date and Time Co-Signed: 05/27/24 16:01 EST Glucose Glucometer (dC) [M ass/Vol]Ordered By: Mike Burleson on 04-23-2024 Glucose [Mass/Vol] Capillary blood gluc ose measurement by glucometer (mass/volume) [facility] Comment on above: Random Glucose Refer ence Range is dependent on time and content of last meal. Glucose of more than 200 mg/dL in a nonstressed, ambulatory subject supports the diagnosis of Diabetes Mellitus. Glucose Poct Glucometerson 1 06-23-2023 Commemt1 Glu2: Cleaned Meter Normal [facility] Comment on above: Result Comment: PERF ORMED BY:[facility] [place], [place] [phone] MEDICAL DIRECTORMIKE CABAN M.D. Performed By: #### G LULS ####Point of Care testing, Glucose [Mass/Vol] 212 mg/dL Normal [facility] Comment on above: Result Comment: [place] Glucose Reference Range is dependent on time and content of last meal. Glucose of more than 200 mg/dL in a nonstressed, ambulatory subject supports the diagnosis of Diabetes Mellitus. Performed By: #### G LULS ####Point of Care testing, Guy 04-23-2024 L Normal [facility] No Panel InformationOrdered By: Mike Burleson on 04-23-2024 Bedside Glucose Comment Glu2: cleaned meter [facility] HbA1c HPLC (Bld) [Mass fract ion]on 04-04-2024 HbA1c (Bld) [Mass fraction] Hemoglobin A1c/Hemoglobin.total in Blood by HPLC [facility] Alanine aminotransferase [En zymatic activity/volume] in Serum or PlasmaOrdered By: João Powell on 03-13-2024 ALT [Catalytic activity/Vol] 38 U/L Normal [facility] Comment on above: Performed By: #### C MP, PHOS, CBC, MG ####[facility] [id number] [place] [address] [facility] ALT [Catalytic activity/Vol] Alanine aminotransferase [Enzymatic activity/volume] in Serum or Plasma [facility] Albumin [Mass/volume] in Ser um or Plasma by Bromocresol green (BCG) dye binding methoOrdered By: João Powell on 03-13-2024 Albumin BCG dye [Mass/Vol] 3.6 g/dL 3.5-5.7 [facility] Albumin BCG dye [Mass/Vol] Albumin [Mass/volume] in Serum or Plasma by Bromocresol green (BCG) dye binding metho 3.5-5.7 [facility] Alkaline phosphatase [Enzyma tic activity/volume] in Serum or PlasmaOrdered By: João Powell on 03-13-2024 ALP [Catalytic activity/Vol] 313 U/L [address] Comment on above: Performed By: #### C MP, PHOS, CBC, MG ####[place] [address] ALP [Catalytic activity/Vol] Alkaline phosphatase [Enzymatic activity/volume] in Serum or Plasma [address] Aspartate aminotransferase [ Enzymatic activity/volume] in Serum or PlasmaOrdered By: João Powell on 03-13-2024 AST [Catalytic activity/Vol] 28 U/L Normal [address] [place] [address] Comment on above: Performed By: #### C MP, PHOS, CBC, MG ####[place] [address] AST [Catalytic activity/Vol] Aspartate aminotransferase [Enzymatic activity/volume] in Serum or Plasma [address] [place] [address] Automated basophil %Ordered By: João Powell on 03-13-2024 Basophils/100 WBC (Bld) 1.2 % Normal . [facility] Comment on above: Performed By: #### C MP, PHOS, CBC, MG ####[place] [address] Automated basophil countOrde red By: João Powell on 03-13-2024 Basophils (Bld) [#/Vol] 0.1 10*3/uL Normal 0.0-0.2 [facility] Comment on above: Result Comment: PERF ORMED BY:[address] [place], [place] [phone] MEDICAL DIRECTORCLIFFORD LOBATO M.D. Performed By: #### C MP, PHOS, CBC, MG ####[place] [address] Automated blood monocyte cou ntOrdered By: João Powell on 03-13-2024 Monocytes (Bld) [#/Vol] 0.9 10*3/uL High 0.0-0.8 [facility] Comment on above: Performed By: #### C MP, PHOS, CBC, MG ####[address] Automated eosinophil %Ordere d By: João Powell on 03-13-2024 Eosinophils/100 WBC (Bld) 3.0 % Normal . [facility] Comment on above: Performed By: #### C MP, PHOS, CBC, MG ####[address] Automated eosinophil countOr dered By: João Powell on 03-13-2024 Eosinophils (Bld) [#/Vol] 0.2 10*3/uL Normal 0.0-0.45 [facility] Comment on above: Performed By: #### C MP, PHOS, CBC, MG ####[address] Automated monocyte %Ordered By: João Powell on 03-13-2024 Monocytes/100 WBC (Bld) 14.4 % Normal . [facility] Comment on above: Performed By: #### C MP, PHOS, CBC, MG ####[address] Automated neutrophil %Ordere d By: João Powell on 03-13-2024 Neutrophils/100 WBC (Bld) 66.7 % Normal . [facility] Comment on above: Performed By: #### C MP, PHOS, CBC, MG ####[address] Basophils Auto (Bld) [#/Vol] Ordered By: João Powell on 03-13-2024 Basophils (Bld) [#/Vol] Automated basophil count 0.0-0.2 [facility] Basophils/100 WBC Auto (Bld) Ordered By: João Powell on 03-13-2024 Basophils/100 WBC (Bld) Automated basophil % . [facility] Bilirubin.total [Mass/volume ] in Serum or PlasmaOrdered By: João Powell on 03-13-2024 Bilirubin [Mass/Vol] 0.9 mg/dL Normal 0.3-1.0 [facility] Comment on above: Performed By: #### C MP, PHOS, CBC, MG ####[facility] [place] [address] [facility] Bilirubin [Mass/Vol] Bilirubin.total [Mass/volume] in Serum or Plasma 0.3-1.0 [facility] Calcium [Mass/volume] in Ser um or PlasmaOrdered By: João Powell on 03-13-2024 Calcium [Mass/Vol] 9.1 mg/dL Normal 8.6-10.3 [facility] Comment on above: Performed By: #### C MP, PHOS, CBC, MG ####[facility] [place] [address] [facility] Calcium [Mass/Vol] Calcium [Mass/volume ] in Serum or Plasma 8.6-10.3 [facility] Capillary blood glucose ashley urement by glucometer (mass/volume)Ordered By: Remberto Ervin on 03-13-2024 Glucose [Mass/Vol] 155 mg/dL Normal [facility] Comment on above: Random Glucose Refer ence Range is dependent on time and content of last meal. Glucose of more than 200 mg/dL in a nonstressed, ambulatory subject supports the diagnosis of Diabetes Mellitus. Result Comment: [place] Glucose Reference Range is dependent on time and content of last meal. Glucose of more than 200 mg/dL in a nonstressed, ambulatory subject supports the diagnosis of Diabetes Mellitus.PERFORMED BY:[facility] [place], [place] [phone] MEDICAL DIRECTORCLIFFORD LOBATO M.D. Performed By: #### G LULS ####Point of Care testing, Carbon dioxide, total [Moles /volume] in Serum or PlasmaOrdered By: João Powell on 03-13-2024 CO2 [Moles/Vol] 23.9 mmol/L Normal 21.0-31.0 [facility] Comment on above: Performed By: #### C MP, PHOS, CBC, MG ####[place] [address] [place], [place] [address] CO2 [Moles/Vol] Carbon dioxide, tota l [Moles/volume] in Serum or Plasma 21.0-31.0 [facility] Chloride [Moles/volume] in S ilia or PlasmaOrdered By: João Powell on 03-13-2024 Chloride [Moles/Vol] 101 mmol/L Normal 98-107 [facility] [facility] Comment on above: Performed By: #### C MP, PHOS, CBC, MG ####[place] [id number] [address] Chloride [Moles/Vol] Chloride [Moles/vol ume] in Serum or Plasma 98-107 [facility] Complete Blood Count Auto Di ffon 03-13-2024 Mean Corpuscular HGB Conc 31.7 g/dL Low 32.5-35.6 [facility] Comment on above: Performed By: #### C MP, PHOS, CBC, MG ####[address] NRBC% 0.1 /100{WBC} Normal 0-0.5 [facility] Comment on above: Performed By: #### C MP, PHOS, CBC, MG ####[address] Comprehensive Metabolic Pane guy 03-13-2024 Albumin [Mass/Vol] 3.6 g/dL Normal 3.5-5.7 [facility] Comment on above: Performed By: #### C MP, PHOS, CBC, MG ####[place] [id number] [facility] Creatinine Clr Calc Pharmacy 56.79 Normal [facility] Comment on above: Performed By: #### C MP, PHOS, CBC, MG ####[place] [id number] [facility] GFR/1.73 sq M.predicted MDRD (S/P/Bld) [Vol rate/Area] 53.205 mL/min/{1.73_m2} Normal [facility] Comment on above: Performed By: #### C MP, PHOS, CBC, MG ####[place] [id number] [address] Creatinine [Mass/volume] in Serum or PlasmaOrdered By: João Powell on 03-13-2024 Creatinine [Mass/Vol] 1.51 mg/dL High 0.70-1.30 [facility] Comment on above: Performed By: #### C MP, PHOS, CBC, MG ####[facility] [id number] Creatinine [Mass/Vol] Creatinine [Mass/v olume] in Serum or Plasma High 0.70-1.30 [facility] Eosinophils Auto (Bld) [#/Vo l]Ordered By: João Powell on 03-13-2024 Eosinophils (Bld) [#/Vol] Automated eosinophil count 0.0-0.45 [facility] Eosinophils/100 WBC Auto (Bl d)Ordered By: João Powell on 03-13-2024 Eosinophils/100 WBC (Bld) Automated eosinophil % . [facility] Erythrocyte distribution wid th Auto (RBC) [Ratio]Ordered By: João Powell on 03-13-2024 Erythrocyte distribution width (RBC) [Ratio] Erythrocyte distribution width [Ratio] by Automated count High 12.0-14.8 [facility] Erythrocyte distribution wid th [Ratio] by Automated countOrdered By: João Powell on 03-13-2024 Erythrocyte distribution width (RBC) [Ratio] 24.5 % High 12.0-14.8 [facility] Comment on above: Performed By: #### C MP, PHOS, CBC, MG ####[facility] [id number] Erythrocytes [#/volume] in B lood by Automated countOrdered By: João Powell on 03-13-2024 RBC (Bld) [#/Vol] 4.12 10*6/uL Normal 3.90-5.60 [facility] Comment on above: Performed By: #### C MP, PHOS, CBC, MG ####[facility] [id number] [place] [address] [facility] Globulin Calc (S) [Mass/Vol] Ordered By: João Powell on 03-13-2024 Globulin (S) [Mass/Vol] Serum globulin measurement by calculation (mass/volume) [facility] Glucose Glucometer (BldC) [M ass/Vol]Ordered By: Remberto Ervin on 03-13-2024 Glucose [Mass/Vol] Capillary blood gluc ose measurement by glucometer (mass/volume) [facility] Comment on above: Random Glucose Refer ence Range is dependent on time and content of last meal. Glucose of more than 200 mg/dL in a nonstressed, ambulatory subject supports the diagnosis of Diabetes Mellitus. Glucose Poct Glucometerson 1 Glucose [Mass/Vol] 162 mg/dL Normal [facility] Comment on above: Result Comment: [place] Glucose Reference Range is dependent on time and content of last meal. Glucose of more than 200 mg/dL in a nonstressed, ambulatory subject supports the diagnosis of Diabetes Mellitus.PERFORMED BY:[facility] [place], [place] [phone] MEDICAL DIRECTORCLIFFORD LOBATO M.D. Performed By: #### G NELI ####Point of Care testing, Glucose [Mass/volume] in Ser um or PlasmaOrdered By: Jooã Powell on 03-13-2024 Glucose [Mass/Vol] 149 mg/dL High 70-100 [facility] Comment on above: ADA recommended refe rence rangeRandom Glucose Reference Range is dependent on time and content of last meal. Glucose of more than 200 mg/dL in a nonstressed, ambulatory subject supports the diagnosis of Diabetes Mellitus. Result Comment: [place] Glucose Reference Range is dependent on time and content of last meal. Glucose of more than 200 mg/dL in a nonstressed, ambulatory subject supports the diagnosis of Diabetes Mellitus. ADA recommended reference range Performed By: #### C MP, PHOS, CBC, MG ####[facility] [id number] [place] [address] [facility] Glucose [Mass/Vol] Glucose [Mass/volume ] in Serum or Plasma High 70-100 [facility] Comment on above: ADA recommended refe rence rangeRandom Glucose Reference Range is dependent on time and content of last meal. Glucose of more than 200 mg/dL in a nonstressed, ambulatory subject supports the diagnosis of Diabetes Mellitus. Hematocrit Auto (Bld) [Volum e fraction]Ordered By: João Powell on 03-13-2024 Hematocrit (Bld) [Volume fraction] Hematocrit [Volume Fraction] of Blood by Automated count Low 38.8-50.0 [facility] Hematocrit [Volume Fraction] of Blood by Automated countOrdered By: João Powell on 03-13-2024 Hematocrit (Bld) [Volume fraction] 29.9 % Low 38.8-50.0 [facility] Comment on above: Performed By: #### C DOMINIK, PHOS, CBC, MG ####[facility] [id number] Hemoglobin [Mass/volume] in BloodOrdered By: João Powell on 03-13-2024 Hemoglobin (Bld) [Mass/Vol] 9.5 g/dL Low 13.0-17.0 [facility] Comment on above: Performed By: #### C MP, PHOS, CBC, MG ####[facility] [id number] Hemoglobin (Bld) [Mass/Vol] Hemoglobin [Mass/volume] in Blood Low 13.0-17.0 [facility] Leukocytes [#/volume] correc jorge for nucleated erythrocytes in Blood by Automated counOrdered By: João Powell on 03-13-2024 WBC corrected for nucl RBC Auto (Bld) [#/Vol] 6.0 10*3/uL 4.1-10.5 [facility] WBC corrected for nucl RBC Auto (Bld) [#/Vol] Leukocytes [#/volume] corrected for nucleated erythrocytes in Blood by Automated coun 4.1-10.5 [facility] Leukocytes [#/volume] in Blo od by Automated countOrdered By: João Powell on 03-13-2024 WBC (Bld) [#/Vol] 6.0 10*3/uL Normal 4.1-10.5 [facility] Comment on above: Performed By: #### C MP, PHOS, CBC, MG ####[address] Lymphocytes Auto (Bld) [#/Vo l]Ordered By: João Powell on 03-13-2024 Lymphocytes (Bld) [#/Vol] Lymphocytes [#/volume] in Blood by Automated count Low 1.00-4.8 [facility] Lymphocytes [#/volume] in Bl ood by Automated countOrdered By: João Powell on 03-13-2024 Lymphocytes (Bld) [#/Vol] 0.9 10*3/uL Low 1.00-4.8 [facility] Comment on above: Performed By: #### C MP, PHOS, CBC, MG ####[address] Lymphocytes/100 WBC Auto (Bl d)Ordered By: João Powell on 03-13-2024 Lymphocytes/100 WBC (Bld) Lymphocytes/100 leukocytes in Blood by Automated count . [facility] Lymphocytes/100 leukocytes i n Blood by Automated countOrdered By: João Powell on 03-13-2024 Lymphocytes/100 WBC (Bld) 14.7 % Normal . [facility] Comment on above: Performed By: #### C MP, PHOS, CBC, MG ####[address] MCH Auto (RBC) [Entitic mass ]Ordered By: João Powell on 03-13-2024 MCH (RBC) [Entitic mass] MCH [Entitic mass] by Automated count Low 27.5-35.2 [facility] MCH [Entitic mass] by Automa jorge countOrdered By: João Powell on 03-13-2024 MCH (RBC) [Entitic mass] 23.0 pg Low 27.5-35.2 [facility] Comment on above: Performed By: #### C MP, PHOS, CBC, MG ####[place] [id number] [facility] MCHC Auto (RBC) [Mass/Vol]Or dered By: Jooã Powell on 03-13-2024 MCHC (RBC) [Mass/Vol] 31.7 g/dL Low 32.5-35.6 [facility] MCHC (RBC) [Mass/Vol] MCHC [Mass/volume] by Automated count Low 32.5-35.6 [facility] MCV Auto (RBC) [Entitic vol] Ordered By: João Powell on 03-13-2024 MCV (RBC) [Entitic vol] MCV [Entitic volume] by Automated count Low 83.5-101 [facility] MCV [Entitic volume] by Auto mated countOrdered By: João Powell on 03-13-2024 MCV (RBC) [Entitic vol] 72.6 fL Low 83.5-101 [facility] Comment on above: Performed By: #### C MP, PHOS, CBC, MG ####[place] [id number] [facility] Magnesium [Mass/volume] in S ilia or PlasmaOrdered By: João Powell on 03-13-2024 Magnesium [Mass/Vol] 1.7 mg/dL Low 1.9-2.7 [facility] Comment on above: Result Comment: PERF ORMED BY:[address] [place], [place] [phone] MEDICAL DIRECTORCLIFFORD LOBATO M.D. Performed By: #### C MP, PHOS, CBC, MG ####[place] [id number] [facility] Magnesium [Mass/Vol] Magnesium [Mass/vol ume] in Serum or Plasma Low 1.9-2.7 [facility] Monocytes Auto (Bld) [#/Vol] Ordered By: João Powell on 03-13-2024 Monocytes (Bld) [#/Vol] Automated blood monocyte count High 0.0-0.8 [facility] Monocytes/100 WBC Auto (Bld) Ordered By: João Powell on 03-13-2024 Monocytes/100 WBC (Bld) Automated monocyte % . [facility] Neutrophils Auto (Bld) [#/Vo l]Ordered By: João Powell on 03-13-2024 Neutrophils (Bld) [#/Vol] Neutrophils [#/volume] in Blood by Automated count 1.8-7.7 [facility] Neutrophils [#/volume] in Bl ood by Automated countOrdered By: João Powell on 03-13-2024 Neutrophils (Bld) [#/Vol] 4.0 10*3/uL Normal 1.8-7.7 [facility] Comment on above: Performed By: #### C MP, PHOS, CBC, MG ####[facility] [id number] [place] [id number] [place] Neutrophils/100 WBC Auto (Bl d)Ordered By: João Powell on 03-13-2024 Neutrophils/100 WBC (Bld) Automated neutrophil % . [facility] No Panel InformationOrdered By: João Powell on 03-13-2024 Estimated GFR (CKD-EPI) 53.205 mL/Min [facility] Creatinine Clearance (Chem 56.79 [facility] 53.205 mL/Min [facility] 56.79 [facility] Nucleated erythrocytes [Pres ence] in Blood by Automated countOrdered By: João Powell on 03-13-2024 Nucleated RBC Auto Ql (Bld) 0.1 /100{WBC} 0-0.5 [facility] Nucleated RBC Auto Ql (Bld) Nucleated erythrocytes [Presence] in Blood by Automated count 0-0.5 [facility] Phosphate [Mass/volume] in S ilia or PlasmaOrdered By: João Powell on 03-13-2024 Phosphate [Mass/Vol] 3.0 mg/dL Normal 2.5-4.5 [facility] Comment on above: Performed By: #### C MP, PHOS, CBC, MG ####[facility] [id number] [place] [address] [facility] Phosphate [Mass/Vol] Phosphate [Mass/vol ume] in Serum or Plasma 2.5-4.5 [facility] Platelet mean volume Auto (B ld) [Entitic vol]Ordered By: João Powell on 03-13-2024 Platelet mean volume (Bld) [Entitic vol] Platelet mean volume [Entitic volume] in Blood by Automated count 6.6-10.1 [facility] Platelet mean volume [Entiti c volume] in Blood by Automated countOrdered By: João Powell on 03-13-2024 Platelet mean volume (Bld) [Entitic vol] 8.9 fL Normal 6.6-10.1 [facility] Comment on above: Performed By: #### C MP, PHOS, CBC, MG ####[place] [address] [place] [address] [facility] Platelets Auto (Bld) [#/Vol] Ordered By: João Powell on 03-13-2024 Platelets (Bld) [#/Vol] Platelets [#/volume] in Blood by Automated count 150-450 [facility] Platelets [#/volume] in Bloo d by Automated countOrdered By: João Powell on 03-13-2024 Platelets (Bld) [#/Vol] 197 10*3/uL Normal 150-450 [facility] Comment on above: Performed By: #### C MP, PHOS, CBC, MG ####[place] [id number] [facility] Potassium [Moles/volume] in Serum or PlasmaOrdered By: João Powell on 03-13-2024 Potassium [Moles/Vol] 3.9 mmol/L Normal 3.5-5.1 [facility] Comment on above: Performed By: #### C MP, PHOS, CBC, MG ####[place] [id number] [facility] Potassium [Moles/Vol] Potassium [Moles/v olume] in Serum or Plasma 3.5-5.1 [facility] Protein [Mass/volume] in Ser um or PlasmaOrdered By: João Powell on 03-13-2024 Protein [Mass/Vol] 7.5 g/dL Normal 6.4-8.9 [facility] Comment on above: Performed By: #### C MP, PHOS, CBC, MG ####[place] [id number] [address] Protein [Mass/Vol] Protein [Mass/volume ] in Serum or Plasma 6.4-8.9 [facility] RBC Auto (Bld) [#/Vol]Ordere d By: João Powell on 03-13-2024 RBC (Bld) [#/Vol] Erythrocytes [#/volu me] in Blood by Automated count 3.90-5.60 [facility] Serum globulin measurement b y calculation (mass/volume)Ordered By: João Powell on 03-13-2024 Globulin (S) [Mass/Vol] 3.9 g/dL [facility] Comment on above: Performed By: #### C MP, PHOS, CBC, MG ####[place] [id number] [address] Serum or plasma albumin/glob ulin mass ratioOrdered By: João Powell on 03-13-2024 Albumin/Globulin [Mass ratio] 0.9 {ratio} [facility] Comment on above: Performed By: #### C MP, PHOS, CBC, MG ####[address] Albumin/Globulin [Mass ratio] Serum or plasma albumin/globulin mass ratio [facility] Serum or plasma anion gap de terminationOrdered By: João Powell on 03-13-2024 Anion gap [Moles/Vol] 13.0 mmol/L Normal 6.0-15.0 [facility] Comment on above: Performed By: #### C MP, PHOS, CBC, MG ####[address] Anion gap [Moles/Vol] Serum or plasma an ion gap determination 6.0-15.0 [facility] Sodium [Moles/volume] in Ser um or PlasmaOrdered By: João Powell on 03-13-2024 Sodium [Moles/Vol] 134 mmol/L Low 136-145 [facility] Comment on above: Performed By: #### C MP, PHOS, CBC, MG ####[place] [id number] [facility] Sodium [Moles/Vol] Sodium [Moles/volume ] in Serum or Plasma Low 136-145 [facility] Urea nitrogen [Mass/volume] in Serum or PlasmaOrdered By: João Powell on 03-13-2024 Urea nitrogen [Mass/Vol] 18 mg/dL Normal 12-27 [facility] Comment on above: Performed By: #### C MP, PHOS, CBC, MG ####[place] [id number] [facility] Urea nitrogen [Mass/Vol] Urea nitrogen [Mass/volume] in Serum or Plasma 12-27 [facility] WBC Auto (Bld) [#/Vol]Ordere d By: João Powell on 03-13-2024 WBC (Bld) [#/Vol] Leukocytes [#/volume ] in Blood by Automated count 4.1-10.5 [facility] Complete Blood Count Auto Di ffon 03-12-2024 Basophils (Bld) [#/Vol] 0.0 10*3/uL Normal 0.0-0.2 [facility] Comment on above: Result Comment: PERF ORMED BY:[address] [place], [place] [phone] MEDICAL DIRECTORCLIFFORD LOBATO M.D. Performed By: #### C BC, CMP, PHOS, MG ####[place] [id number] [place] Basophils/100 WBC (Bld) 0.8 % Normal . [facility] Comment on above: Performed By: #### C BC, CMP, PHOS, MG ####[place] [id number] [place] Eosinophils (Bld) [#/Vol] 0.1 10*3/uL Normal 0.0-0.45 [facility] Comment on above: Performed By: #### C BC, CMP, PHOS, MG ####[place] [id number] [place] Eosinophils/100 WBC (Bld) 1.7 % Normal . [facility] Comment on above: Performed By: #### C BC, CMP, PHOS, MG ####[address] Erythrocyte distribution width (RBC) [Ratio] 24.0 % High 12.0-14.8 [facility] Comment on above: Performed By: #### C BC, CMP, PHOS, MG ####[address] Hematocrit (Bld) [Volume fraction] 28.0 % Low 38.8-50.0 [facility] Comment on above: Performed By: #### C BC, CMP, PHOS, MG ####[address] Hemoglobin (Bld) [Mass/Vol] 9.0 g/dL Low 13.0-17.0 [facility] Comment on above: Performed By: #### C BC, CMP, PHOS, MG ####[address] Lymphocytes (Bld) [#/Vol] 0.7 10*3/uL Low 1.00-4.8 [facility] Comment on above: Performed By: #### C BC, CMP, PHOS, MG ####[address] Lymphocytes/100 WBC (Bld) 12.6 % Normal . [facility] Comment on above: Performed By: #### C BC, CMP, PHOS, MG ####[address] MCH (RBC) [Entitic mass] 23.1 pg Low 27.5-35.2 [facility] Comment on above: Performed By: #### C BC, CMP, PHOS, MG ####[address] MCV (RBC) [Entitic vol] 72.1 fL Low 83.5-101 [facility] Comment on above: Performed By: #### C BC, CMP, PHOS, MG ####[address] Mean Corpuscular HGB Conc 32.1 g/dL Low 32.5-35.6 [facility] Comment on above: Performed By: #### C BC, CMP, PHOS, MG ####[address] Monocytes (Bld) [#/Vol] 1.0 10*3/uL High 0.0-0.8 [facility] Comment on above: Performed By: #### C BC, CMP, PHOS, MG ####[address] Monocytes/100 WBC (Bld) 16.2 % Normal . [facility] Comment on above: Performed By: #### C BC, CMP, PHOS, MG ####[address] Neutrophils (Bld) [#/Vol] 4.0 10*3/uL Normal 1.8-7.7 [facility] Comment on above: Performed By: #### C BC, CMP, PHOS, MG ####[address] Neutrophils/100 WBC (Bld) 68.7 % Normal . [facility] Comment on above: Performed By: #### C BC, CMP, PHOS, MG ####[address] NRBC% 0.1 /100{WBC} Normal 0-0.5 [facility] Comment on above: Performed By: #### C BC, CMP, PHOS, MG ####[address] Platelet mean volume (Bld) [Entitic vol] 8.8 fL Normal 6.6-10.1 [facility] Comment on above: Performed By: #### C BC, CMP, PHOS, MG ####[place] [address] Platelets (Bld) [#/Vol] 191 10*3/uL Normal 150-450 [facility] Comment on above: Performed By: #### C BC, CMP, PHOS, MG ####[address] RBC (Bld) [#/Vol] 3.89 10*6/uL Low 3.90-5.60 [facility] Comment on above: Performed By: #### C BC, CMP, PHOS, MG ####[address] WBC (Bld) [#/Vol] 5.9 10*3/uL Normal 4.1-10.5 [facility] Comment on above: Performed By: #### C BC, CMP, PHOS, MG ####[address] Comprehensive Metabolic Pane guy 03-12-2024 Albumin [Mass/Vol] 3.5 g/dL Normal 3.5-5.7 [facility] Comment on above: Performed By: #### C BC, CMP, PHOS, MG ####[address] Albumin/Globulin [Mass ratio] 0.9 {ratio} Normal [facility] Comment on above: Performed By: #### C BC, CMP, PHOS, MG ####[address] ALP [Catalytic activity/Vol] 328 U/L High 34-104 [facility] Comment on above: Performed By: #### C BC, CMP, PHOS, MG ####[address] ALT [Catalytic activity/Vol] 46 U/L Normal 7-52 [facility] Comment on above: Performed By: #### C BC, CMP, PHOS, MG ####[address] Anion gap [Moles/Vol] 14.2 mmol/L Normal 6.0-15.0 [facility] Comment on above: Performed By: #### C BC, CMP, PHOS, MG ####[address] AST [Catalytic activity/Vol] 34 U/L Normal 13-39 [facility] Comment on above: Performed By: #### C BC, CMP, PHOS, MG ####[address] Bilirubin [Mass/Vol] 1.0 mg/dL Normal 0.3-1.0 [facility] Comment on above: Performed By: #### C BC, CMP, PHOS, MG ####[address] Calcium [Mass/Vol] 9.1 mg/dL Normal 8.6-10.3 [facility] Comment on above: Performed By: #### C BC, CMP, PHOS, MG ####[address] Chloride [Moles/Vol] 104 mmol/L Normal 98-107 [facility] Comment on above: Performed By: #### C BC, CMP, PHOS, MG ####[address] CO2 [Moles/Vol] 21.7 mmol/L Normal 21.0-31.0 [facility] Comment on above: Performed By: #### C BC, CMP, PHOS, MG ####[address] Creatinine [Mass/Vol] 1.46 mg/dL High 0.70-1.30 [facility] Comment on above: Performed By: #### C BC, CMP, PHOS, MG ####[address] Creatinine Clr Calc Pharmacy 58.74 Normal [facility] Comment on above: Performed By: #### C BC, CMP, PHOS, MG ####[place] [id number] [facility] GFR/1.73 sq M.predicted MDRD (S/P/Bld) [Vol rate/Area] 55.398 mL/min/{1.73_m2} Normal [facility] Comment on above: Performed By: #### C BC, CMP, PHOS, MG ####[place] [id number] [facility] Globulin (S) [Mass/Vol] 3.7 g/dL Normal [facility] Comment on above: Performed By: #### C BC, CMP, PHOS, MG ####[place] [id number] [facility] Glucose [Mass/Vol] 167 mg/dL High 70-100 [facility] Comment on above: Result Comment: [facility] Glucose Reference Range is dependent on time and content of last meal. Glucose of more than 200 mg/dL in a nonstressed, ambulatory subject supports the diagnosis of Diabetes Mellitus. ADA recommended reference range Performed By: #### C BC, CMP, PHOS, MG ####[place] [id number] [facility] Potassium [Moles/Vol] 3.9 mmol/L Normal 3.5-5.1 [facility] Comment on above: Performed By: #### C BC, CMP, PHOS, MG ####[place] [id number] [facility] Protein [Mass/Vol] 7.2 g/dL Normal 6.4-8.9 [facility] Comment on above: Performed By: #### C BC, CMP, PHOS, MG ####[place] [id number] [facility] Sodium [Moles/Vol] 136 mmol/L Normal 136-145 [facility] Comment on above: Performed By: #### C BC, CMP, PHOS, MG ####[place] [id number] [facility] Urea nitrogen [Mass/Vol] 19 mg/dL Normal 7-25 [facility] Comment on above: Performed By: #### C BC, CMP, PHOS, MG ####[address] [address] [facility] Glucose Poct Glucometerson 1 Glucose [Mass/Vol] 174 mg/dL Normal [facility] Comment on above: Result Comment: [place] Glucose Reference Range is dependent on time and content of last meal. Glucose of more than 200 mg/dL in a nonstressed, ambulatory subject supports the diagnosis of Diabetes Mellitus.PERFORMED BY:[address] [place], [place] [phone] MEDICAL DIRECTORCLIFFORD LOBATO M.D. Performed By: #### G LULS ####Point of Care testing, Glucose [Mass/Vol] 216 mg/dL Normal [facility] Comment on above: Result Comment: [place] Glucose Reference Range is dependent on time and content of last meal. Glucose of more than 200 mg/dL in a nonstressed, ambulatory subject supports the diagnosis of Diabetes Mellitus.PERFORMED BY:[address] [place], [place] [phone] MEDICAL DIRECTORCLIFFORD LOBATO M.D. Performed By: #### G LULS ####Point of Care testing, Glucose [Mass/Vol] 230 mg/dL Normal [facility] Comment on above: Result Comment: [place] Glucose Reference Range is dependent on time and content of last meal. Glucose of more than 200 mg/dL in a nonstressed, ambulatory subject supports the diagnosis of Diabetes Mellitus.PERFORMED BY:[address] [place], [place] [phone] MEDICAL BRISA LOBATO M.D. Performed By: #### G LULS ####Point of Care testing, Glucose [Mass/Vol] 179 mg/dL Normal [facility] Comment on above: Result Comment: [place] Glucose Reference Range is dependent on time and content of last meal. Glucose of more than 200 mg/dL in a nonstressed, ambulatory subject supports the diagnosis of Diabetes Mellitus.PERFORMED BY:[address] [place] [phone] MEDICAL DIRECTORCLIFFORD LOBATO M.D. Performed By: #### G NELI ####Point of Care testing, Magnesiumon 03-12-2024 Magnesium [Mass/Vol] 2.0 mg/dL Normal 1.9-2.7 [facility] Comment on above: Result Comment: PERF ORMED BY:[address] [place], [place] [id number] MEDICAL DIRECTORCLIFFORD LOBATO M.D. Performed By: #### C BC, CMP, PHOS, MG ####[address] Phosphoruson 03-12-2024 Phosphate [Mass/Vol] 2.5 mg/dL Normal 2.5-4.5 [facility] Comment on above: Performed By: #### C BC, CMP, PHOS, MG ####[address] Complete Blood Count Auto Di ffon 03-11-2024 Basophils (Bld) [#/Vol] 0.1 10*3/uL Normal 0.0-0.2 [facility] Comment on above: Result Comment: PERF ORMED BY:[address] [place], [place] [phone] MEDICAL BRISA LOBATO M.D. Performed By: #### C BC, MG, PHOS, CMP ####[address] Basophils/100 WBC (Bld) 0.6 % Normal . [facility] Comment on above: Performed By: #### C BC, MG, PHOS, CMP ####[address] Eosinophils (Bld) [#/Vol] 0.2 10*3/uL Normal 0.0-0.45 [facility] Comment on above: Performed By: #### C BC, MG, PHOS, CMP ####[place] [address] Eosinophils/100 WBC (Bld) 2.7 % Normal . [facility] Comment on above: Performed By: #### C BC, MG, PHOS, CMP ####[address] Erythrocyte distribution width (RBC) [Ratio] 24.0 % High 12.0-14.8 [facility] Comment on above: Performed By: #### C BC, MG, PHOS, CMP ####[address] Hematocrit (Bld) [Volume fraction] 27.6 % Low 38.8-50.0 [facility] Comment on above: Performed By: #### C BC, MG, PHOS, CMP ####[address] Hemoglobin (Bld) [Mass/Vol] 8.8 g/dL Low 13.0-17.0 [facility] Comment on above: Performed By: #### C BC, MG, PHOS, CMP ####[address] Lymphocytes (Bld) [#/Vol] 0.5 10*3/uL Low 1.00-4.8 [facility] Comment on above: Performed By: #### C BC, MG, PHOS, CMP ####[address] Lymphocytes/100 WBC (Bld) 5.3 % Normal . [facility] Comment on above: Performed By: #### C BC, MG, PHOS, CMP ####[address] MCH (RBC) [Entitic mass] 23.1 pg Low 27.5-35.2 [facility] Comment on above: Performed By: #### C BC, MG, PHOS, CMP ####[address] MCV (RBC) [Entitic vol] 72.1 fL Low 83.5-101 [facility] Comment on above: Performed By: #### C BC, MG, PHOS, CMP ####[address] Mean Corpuscular HGB Conc 32.0 g/dL Low 32.5-35.6 [facility] Comment on above: Performed By: #### C BC, MG, PHOS, CMP ####[address] Monocytes (Bld) [#/Vol] 0.9 10*3/uL High 0.0-0.8 [facility] Comment on above: Performed By: #### C BC, MG, PHOS, CMP ####[address] Monocytes/100 WBC (Bld) 10.5 % Normal . [facility] Comment on above: Performed By: #### C BC, MG, PHOS, CMP ####[address] Neutrophils (Bld) [#/Vol] 7.3 10*3/uL Normal 1.8-7.7 [facility] Comment on above: Performed By: #### C BC, MG, PHOS, CMP ####[address] Neutrophils/100 WBC (Bld) 80.9 % Normal . [facility] Comment on above: Performed By: #### C BC, MG, PHOS, CMP ####[address] NRBC% 0.0 /100{WBC} Normal 0-0.5 [facility] Comment on above: Performed By: #### C BC, MG, PHOS, CMP ####[address] Platelet mean volume (Bld) [Entitic vol] 8.8 fL Normal 6.6-10.1 [facility] Comment on above: Performed By: #### C BC, MG, PHOS, CMP ####[address] Platelets (Bld) [#/Vol] 201 10*3/uL Normal 150-450 [facility] Comment on above: Performed By: #### C BC, MG, PHOS, CMP ####[address] RBC (Bld) [#/Vol] 3.83 10*6/uL Low 3.90-5.60 [facility] Comment on above: Performed By: #### C BC, MG, PHOS, CMP ####[address] WBC (Bld) [#/Vol] 9.0 10*3/uL Normal 4.1-10.5 [facility] Comment on above: Performed By: #### C BC, MG, PHOS, CMP ####[address] Comprehensive Metabolic Pane guy 03-11-2024 Albumin [Mass/Vol] 3.5 g/dL Normal 3.5-5.7 [facility] Comment on above: Performed By: #### C BC, MG, PHOS, CMP ####[address] Albumin/Globulin [Mass ratio] 0.9 {ratio} Normal [facility] Comment on above: Performed By: #### C BC, MG, PHOS, CMP ####[address] ALP [Catalytic activity/Vol] 367 U/L High 34-104 [facility] Comment on above: Performed By: #### C BC, MG, PHOS, CMP ####[address] ALT [Catalytic activity/Vol] 59 U/L High 7-52 [facility] Comment on above: Performed By: #### C BC, MG, PHOS, CMP ####[address] Anion gap [Moles/Vol] 12.6 mmol/L Normal 6.0-15.0 Th e [facility] Comment on above: Performed By: #### C BC, MG, PHOS, CMP ####[place] [address] [place] [id number] [facility] AST [Catalytic activity/Vol] 52 U/L High 13-39 [facility] Comment on above: Performed By: #### C BC, MG, PHOS, CMP ####[place] [id number] [facility] Bilirubin [Mass/Vol] 1.5 mg/dL High 0.3-1.0 [facility] Comment on above: Result Comment: Samp les from patients who have taken Naproxen have shown spurious elevation in Total Bilirubin levels. A metabolite of Naproxen, O-desmethylnaproxen, has been shown to interfere with the Jendrassik-Grof method for measuring Total Bilirubin. Performed By: #### C BC, MG, PHOS, CMP ####[address] Calcium [Mass/Vol] 8.8 mg/dL Normal 8.6-10.3 [facility] Comment on above: Performed By: #### C BC, MG, PHOS, CMP ####[place] [id number] [facility] Chloride [Moles/Vol] 104 mmol/L Normal 98-107 [facility] Comment on above: Performed By: #### C BC, MG, PHOS, CMP ####[place] [id number] [facility] CO2 [Moles/Vol] 23.0 mmol/L Normal 21.0-31.0 [facility] Comment on above: Performed By: #### C BC, MG, PHOS, CMP ####[place] [id number] [facility] Creatinine [Mass/Vol] 1.70 mg/dL High 0.70-1.30 [facility] Comment on above: Performed By: #### C BC, MG, PHOS, CMP ####[place] [id number] Creatinine Clr Calc Pharmacy 50.45 Normal [facility] Comment on above: Performed By: #### C BC, MG, PHOS, CMP ####[address] GFR/1.73 sq M.predicted MDRD (S/P/Bld) [Vol rate/Area] 46.151 mL/min/{1.73_m2} Normal [facility] Comment on above: Performed By: #### C BC, MG, PHOS, CMP ####[address] Globulin (S) [Mass/Vol] 3.7 g/dL Normal [facility] Comment on above: Performed By: #### C BC, MG, PHOS, CMP ####[address] Glucose [Mass/Vol] 150 mg/dL High 70-100 [facility] Comment on above: Result Comment: [facility] Glucose Reference Range is dependent on time and content of last meal. Glucose of more than 200 mg/dL in a nonstressed, ambulatory subject supports the diagnosis of Diabetes Mellitus. ADA recommended reference range Performed By: #### C BC, MG, PHOS, CMP ####[address] Potassium [Moles/Vol] 3.6 mmol/L Normal 3.5-5.1 [facility] Comment on above: Performed By: #### C BC, MG, PHOS, CMP ####[address] Protein [Mass/Vol] 7.2 g/dL Normal 6.4-8.9 [facility] Comment on above: Performed By: #### C BC, MG, PHOS, CMP ####[address] Sodium [Moles/Vol] 136 mmol/L Normal 136-145 [facility] Comment on above: Performed By: #### C BC, MG, PHOS, CMP ####[facility] [address] [place] [address] [facility] Urea nitrogen [Mass/Vol] 17 mg/dL Normal 7-25 [facility] Comment on above: Performed By: #### C BC, MG, PHOS, CMP ####[facility] [address] [place] [address] [facility] Glucose Poct Glucometerson 1 Glucose [Mass/Vol] 193 mg/dL Normal [facility] Comment on above: Result Comment: [place] Glucose Reference Range is dependent on time and content of last meal. Glucose of more than 200 mg/dL in a nonstressed, ambulatory subject supports the diagnosis of Diabetes Mellitus.PERFORMED BY:[address] [place], [place] [phone] MEDICAL DIRECTORCLIFFORD LOBATO M.D. Performed By: #### G LULS ####Point of Care testing, Commemt1 Glu2: Cleaned Meter Normal [facility] Comment on above: Result Comment: PERF ORMED BY:[address] [place], [place] [phone] MEDICAL DIRECTORCLIFFORD LOBATO M.D. Performed By: #### G LULS ####Point of Care testing, Glucose [Mass/Vol] 156 mg/dL Normal [facility] Comment on above: Result Comment: [place] Glucose Reference Range is dependent on time and content of last meal. Glucose of more than 200 mg/dL in a nonstressed, ambulatory subject supports the diagnosis of Diabetes Mellitus. Performed By: #### G LULS ####Point of Care testing, Commemt1 Glu2: Cleaned Meter Normal [facility] Comment on above: Result Comment: PERF ORMED BY:[address] [place], [place] [phone] MEDICAL DIRECTORCLIFFORD LOBATO M.D. Performed By: #### G LULS ####Point of Care testing, Glucose [Mass/Vol] 185 mg/dL Normal [facility] Comment on above: Result Comment: [place] Glucose Reference Range is dependent on time and content of last meal. Glucose of more than 200 mg/dL in a nonstressed, ambulatory subject supports the diagnosis of Diabetes Mellitus. Performed By: #### G LULS ####Point of Care testing, Glucose [Mass/Vol] 178 mg/dL Normal [facility] Comment on above: Result Comment: [place] Glucose Reference Range is dependent on time and content of last meal. Glucose of more than 200 mg/dL in a nonstressed, ambulatory subject supports the diagnosis of Diabetes Mellitus.PERFORMED BY:[address] [place], [place] [phone] MEDICAL DIRECTORCLIFFORD LOBATO M.D. Performed By: #### G LULS ####Point of Care testing, Hep C Ab wRfx to Qnt PCRon 1 Hepatitis C Virus Antibody Non-Reactive Normal Non Reactive [facility] Comment on above: Performed By: #### H CV RX PCR ####[facility] , Interpretation Hepatitis C Comment Normal . [facility] Comment on above: Result Comment: Not infected with HCV unless early or acute infection is suspected (which may be delayed in an immunocompromised individual), or other evidence exists to indicate HCV infection. Performed at: [facility] [id number] Architect Internship: Uriel Borrero PhD, Phone: [phone] BY:[place] [address] [address] [place], [place] [phone] MEDICAL DIRECTORCLIFFORD LOBATO M.D. Performed By: #### H CV RX PCR ####[facility] , Hepatitis C virus IgG Ab [Pr esence] in Serum or Plasma by ImmunoassayOrdered By: Mike Burleson on 03-11-2024 HCV IgG IA Ql Non-Reactive Non Reactive [facility] HCV IgG IA Ql Hepatitis C virus Ig G Ab [Presence] in Serum or Plasma by Immunoassay Non Reactive [facility] MR abdomen wo/w conon 2023 MR abdomen wo/w con Normal [facility] Magnesiumon 03-11-2024 Magnesium [Mass/Vol] 1.8 mg/dL Low 1.9-2.7 [facility] Comment on above: Result Comment: PERF ORMED BY:[place] [address] [address] [place], [place] [phone] MEDICAL DIRECTORCLIFFORD LOBATO M.D. Performed By: #### C BC, MG, PHOS, CMP ####[place] [address] [place] [id number] [facility] No Panel InformationOrdered By: João Powell on 03-11-2024 Bedside Glucose Comment Glu2: cleaned meter [facility] Glu2: cleaned meter [facility] No Panel InformationOrdered By: Mike Burleson on 03-11-2024 Hepatitis C Interpretation Comment . [facility] Comment on above: Not infected with HC V unless early or acute infection issuspected (which may be delayed in an immunocompromisedindividual), or other evidence exists to indicate HCVinfection.Performed at: [facility] [address] Director: Uriel Borrero PhD, Phone: [phone] Comment . [facility] Phosphoruson 03-11-2024 Phosphate [Mass/Vol] 3.4 mg/dL Normal 2.5-4.5 [facility] Comment on above: Performed By: #### C BC, MG, PHOS, CMP ####[place] [address] [place] [id number] [facility] US liveron 03-11-2024 US liver Normal [facility] Complete Blood Count Auto Di ffon 03-10-2024 Basophils (Bld) [#/Vol] 0.0 10*3/uL Normal 0.0-0.2 [facility] Comment on above: Result Comment: PERF ORMED BY:[place] [address] [address] [place], [place] [phone] MEDICAL DIRECTORCLIFFORD LOBATO M.D. Performed By: #### C MP, MG, PHOS, GGT, CBC ####[address] Basophils/100 WBC (Bld) 0.3 % Normal . [facility] Comment on above: Performed By: #### C MP, MG, PHOS, GGT, CBC ####[address] Eosinophils (Bld) [#/Vol] 0.1 10*3/uL Normal 0.0-0.45 [facility] Comment on above: Performed By: #### C MP, MG, PHOS, GGT, CBC ####[address] Eosinophils/100 WBC (Bld) 0.8 % Normal . [facility] Comment on above: Performed By: #### C MP, MG, PHOS, GGT, CBC ####[address] Erythrocyte distribution width (RBC) [Ratio] 23.4 % High 12.0-14.8 [facility] Comment on above: Performed By: #### C MP, MG, PHOS, GGT, CBC ####[address] Hematocrit (Bld) [Volume fraction] 25.8 % Low 38.8-50.0 [facility] Comment on above: Performed By: #### C MP, MG, PHOS, GGT, CBC ####[address] Hemoglobin (Bld) [Mass/Vol] 8.4 g/dL Low 13.0-17.0 [facility] Comment on above: Performed By: #### C MP, MG, PHOS, GGT, CBC ####[address] Lymphocytes (Bld) [#/Vol] 0.7 10*3/uL Low 1.00-4.8 [facility] Comment on above: Performed By: #### C MP, MG, PHOS, GGT, CBC ####[address] Lymphocytes/100 WBC (Bld) 4.9 % Normal . [facility] Comment on above: Performed By: #### C MP, MG, PHOS, GGT, CBC ####[address] MCH (RBC) [Entitic mass] 23.1 pg Low 27.5-35.2 [facility] Comment on above: Performed By: #### C MP, MG, PHOS, GGT, CBC ####[address] MCV (RBC) [Entitic vol] 71.2 fL Low 83.5-101 [facility] Comment on above: Performed By: #### C MP, MG, PHOS, GGT, CBC ####[address] Mean Corpuscular HGB Conc 32.5 g/dL Normal 32.5-35.6 [facility] Comment on above: Performed By: #### C MP, MG, PHOS, GGT, CBC ####[address] Monocytes (Bld) [#/Vol] 1.5 10*3/uL High 0.0-0.8 [facility] Comment on above: Performed By: #### C MP, MG, PHOS, GGT, CBC ####[address] Monocytes/100 WBC (Bld) 10.6 % Normal . [facility] Comment on above: Performed By: #### C MP, MG, PHOS, GGT, CBC ####[address] Neutrophils (Bld) [#/Vol] 11.4 10*3/uL High 1.8-7.7 [facility] Comment on above: Performed By: #### C MP, MG, PHOS, GGT, CBC ####[address] Neutrophils/100 WBC (Bld) 83.4 % Normal . [facility] Comment on above: Performed By: #### C MP, MG, PHOS, GGT, CBC ####[address] NRBC% 0.2 /100{WBC} Normal 0-0.5 [facility] Comment on above: Performed By: #### C MP, MG, PHOS, GGT, CBC ####[address] Platelet mean volume (Bld) [Entitic vol] 8.9 fL Normal 6.6-10.1 [facility] Comment on above: Performed By: #### C MP, MG, PHOS, GGT, CBC ####[address] Platelets (Bld) [#/Vol] 205 10*3/uL Normal 150-450 [facility] Comment on above: Performed By: #### C MP, MG, PHOS, GGT, CBC ####[address] RBC (Bld) [#/Vol] 3.62 10*6/uL Low 3.90-5.60 [facility] Comment on above: Performed By: #### C MP, MG, PHOS, GGT, CBC ####[address] WBC (Bld) [#/Vol] 13.7 10*3/uL High 4.1-10.5 [facility] Comment on above: Performed By: #### C MP, MG, PHOS, GGT, CBC ####[address] Comprehensive Metabolic Pane guy 03-10-2024 Albumin [Mass/Vol] 3.4 g/dL Low 3.5-5.7 [facility] Comment on above: Performed By: #### C MP, MG, PHOS, GGT, CBC ####[address] [place] [address] [place] Albumin/Globulin [Mass ratio] 1.0 {ratio} Normal [facility] Comment on above: Performed By: #### C MP, MG, PHOS, GGT, CBC ####[address] ALP [Catalytic activity/Vol] 426 U/L High 34-104 [facility] Comment on above: Performed By: #### C MP, MG, PHOS, GGT, CBC ####[address] ALT [Catalytic activity/Vol] 78 U/L High 7-52 [facility] Comment on above: Performed By: #### C MP, MG, PHOS, GGT, CBC ####[address] Anion gap [Moles/Vol] 14.5 mmol/L Normal 6.0-15.0 [facility] Comment on above: Performed By: #### C MP, MG, PHOS, GGT, CBC ####[address] AST [Catalytic activity/Vol] 92 U/L High 13-39 [facility] Comment on above: Performed By: #### C MP, MG, PHOS, GGT, CBC ####[address] Bilirubin [Mass/Vol] 2.2 mg/dL High 0.3-1.0 [facility] Comment on above: Result Comment: Samp les from patients who have taken Naproxen have shown spurious elevation in Total Bilirubin levels. A metabolite of Naproxen, O-desmethylnaproxen, has been shown to interfere with the Jengeovanniik-Aleksandra method for measuring Total Bilirubin. Performed By: #### C MP, MG, PHOS, GGT, CBC ####[address] Calcium [Mass/Vol] 8.3 mg/dL Low 8.6-10.3 [facility] Comment on above: Performed By: #### C MP, MG, PHOS, GGT, CBC ####[address] Chloride [Moles/Vol] 102 mmol/L Normal 98-107 [facility] Comment on above: Performed By: #### C MP, MG, PHOS, GGT, CBC ####[address] CO2 [Moles/Vol] 21.8 mmol/L Normal 21.0-31.0 [facility] Comment on above: Performed By: #### C MP, MG, PHOS, GGT, CBC ####[address] Creatinine [Mass/Vol] 1.81 mg/dL High 0.70-1.30 [facility] Comment on above: Performed By: #### C MP, MG, PHOS, GGT, CBC ####[address] Creatinine Clr Calc Pharmacy 47.38 Normal [facility] Comment on above: Performed By: #### C MP, MG, PHOS, GGT, CBC ####[address] GFR/1.73 sq M.predicted MDRD (S/P/Bld) [Vol rate/Area] 42.806 mL/min/{1.73_m2} Normal [facility] Comment on above: Performed By: #### C MP, MG, PHOS, GGT, CBC ####[address] Globulin (S) [Mass/Vol] 3.3 g/dL Normal [facility] Comment on above: Performed By: #### C MP, MG, PHOS, GGT, CBC ####[address] Glucose [Mass/Vol] 141 mg/dL High 70-100 [facility] Comment on above: Result Comment: [facility] Glucose Reference Range is dependent on time and content of last meal. Glucose of more than 200 mg/dL in a nonstressed, ambulatory subject supports the diagnosis of Diabetes Mellitus. ADA recommended reference range Performed By: #### C MP, MG, PHOS, GGT, CBC ####[address] Potassium [Moles/Vol] 3.3 mmol/L Low 3.5-5.1 [facility] Comment on above: Performed By: #### C MP, MG, PHOS, GGT, CBC ####[place] [id number] [facility] Protein [Mass/Vol] 6.7 g/dL Normal 6.4-8.9 [facility] Comment on above: Performed By: #### C MP, MG, PHOS, GGT, CBC ####[address] Sodium [Moles/Vol] 135 mmol/L Significant change down 136-145 [facility] Comment on above: Performed By: #### C MP, MG, PHOS, GGT, CBC ####[address] Urea nitrogen [Mass/Vol] 16 mg/dL Normal 7-25 [facility] Comment on above: Performed By: #### C MP, MG, PHOS, GGT, CBC ####[place] [id number] [facility] Gamma Glutamyl Transpeptidas keyla 03-10-2024 Amylase [Catalytic activity/Vol] 176 U/L High [facility] Comment on above: Result Comment: PERF ORMED BY:[address] [place], [place] [phone] MEDICAL DIRECTORCLIFFORD LOBATO M.D. Performed By: #### C MP, MG, PHOS, GGT, CBC ####[place] [id number] [facility] Gamma glutamyl transferase [ Enzymatic activity/volume] in Serum or PlasmaOrdered By: João Powell on 03-10-2024 Gamma glutamyl transferase [Catalytic activity/Vol] 176 U/L High [facility] Gamma glutamyl transferase [Catalytic activity/Vol] Gamma glutamyl transferase [Enzymatic activity/volume] in Serum or Plasma [address] Glucose Poct Glucometerson 1 Commemt1 Glu2: Cleaned Meter Normal [facility] Comment on above: Result Comment: PERF ORMED BY:[place] [address] [address] MUKULDarrianMaryCH[place], [place] [phone] MEDICAL DIRECTORCLIFFORD LOBATO M.D. Performed By: #### G LULS ####Point of Care testing, Glucose [Mass/Vol] 133 mg/dL Normal [facility] Comment on above: Result Comment: [place] Glucose Reference Range is dependent on time and content of last meal. Glucose of more than 200 mg/dL in a nonstressed, ambulatory subject supports the diagnosis of Diabetes Mellitus. Performed By: #### G LULS ####Point of Care testing, Commemt1 Glu2: Cleaned Meter Normal [facility] Comment on above: Result Comment: PERF ORMED BY:[place] [address] [address] [place], [place] [phone] MEDICAL DIRECTORCLIFFORD LOBATO M.D. Performed By: #### G LULS ####Point of Care testing, Glucose [Mass/Vol] 294 mg/dL Normal [facility] Comment on above: Result Comment: [place] Glucose Reference Range is dependent on time and content of last meal. Glucose of more than 200 mg/dL in a nonstressed, ambulatory subject supports the diagnosis of Diabetes Mellitus. Performed By: #### G LULS ####Point of Care testing, Glucose [Mass/Vol] 352 mg/dL Normal [facility] Comment on above: Result Comment: [place] Glucose Reference Range is dependent on time and content of last meal. Glucose of more than 200 mg/dL in a nonstressed, ambulatory subject supports the diagnosis of Diabetes Mellitus.PERFORMED BY:[place] [address] [address] [place], [place] [phone] MEDICAL DIRECTORCLIFFORD LOBATO M.D. Performed By: #### G LULS ####Point of Care testing, Glucose [Mass/Vol] 174 mg/dL Normal [facility] Comment on above: Result Comment: [facility] Glucose Reference Range is dependent on time and content of last meal. Glucose of more than 200 mg/dL in a nonstressed, ambulatory subject supports the diagnosis of Diabetes Mellitus.PERFORMED BY:[place] [address] [place], [place] [phone] MEDICAL DIRECTORCLIFFORD LOBATO M.D. Performed By: #### G LULS ####Point of Care testing, Magnesiumon 03-10-2024 Magnesium [Mass/Vol] 1.4 mg/dL Low 1.9-2.7 [facility] Comment on above: Result Comment: PERF ORMED BY:[place] [address] [address] [place], [place] [phone] MEDICAL DIRECTORCLIFFORD LOBATO M.D. Performed By: #### C MP, MG, PHOS, GGT, CBC ####[facility] [id number] [place] [address] [facility] I-essgxx-Y-Aspartate IgG, Se gladis 03-10-2024 S-cycpab-GMfzqeyxre IgG, Serum Negative Normal Negative [facility] Comment on above: Result Comment: This test was developed and its performance characteristics determined by [facility]. It has not been cleared or approved by the Food and Drug Administration. The NIH-sponsored ExTINGUISH Trial (activity and safety of Inebilizumab in anti-NMDAR encephalitis) is actively recruiting patients. You may consider enrolling your patient in the clinical trial if the result of this test is positive. To learn more, or to refer your patient, call [phone] ([phone], study hotline) or see ClinicalTrials.gov (study ID, [id number]). Performed at: [address] [id number] Architect Internship: Chrissy Wong MD, Phone: [phone] BY:[place] [address] [place], [place] [phone] MEDICAL DIRECTORCLIFFORD LOBATO M.D. Performed By: #### N MDA IGG SERUM ####[facility] , No Panel InformationOrdered By: Job James on 03-10-2024 T-Skwvpx-N-Aspartate Recept IgG Ab Negative Negative [facility] Comment on above: This test was develo ped and its performance characteristicsdetermined by [facility]. It has not been cleared orapproved by the Food and Drug Administration.The [facility] [[email or web address]]-sponsored ExTINGUISH Trial (activity and safety ofInebilizumab in anti-NMDAR encephalitis) is activelyrecruiting patients. You may consider enrolling yourpatient in the clinical trial if the result of this test ispositive. To learn more, or to refer your patient, call [phone] ([phone], study hotline) or seeinicalTrials.gov (study ID, [id number]).Performed at: [address] [id number] Director: Chrissy Wong MD, Phone: [phone] Negative Negative [facility] Phosphoruson 03-10-2024 Phosphate [Mass/Vol] 3.1 mg/dL Normal 2.5-4.5 [facility] Comment on above: Performed By: #### C MP, MG, PHOS, GGT, CBC ####[facility] [place] [id number] [facility] Complete Blood Count Auto Di ffon 03-09-2024 Basophils (Bld) [#/Vol] 0.1 10*3/uL Normal 0.0-0.2 [facility] Comment on above: Result Comment: PERF ORMED BY:[address] [place], [place] [phone] MEDICAL DIRECTORCLIFFORD LOBATO M.D. Performed By: #### C BC, CMP, MG, PHOS ####[facility] [address] [place] [id number] [facility] Basophils/100 WBC (Bld) 1.2 % Normal . [facility] Comment on above: Performed By: #### C BC, CMP, MG, PHOS ####[address] Eosinophils (Bld) [#/Vol] 0.2 10*3/uL Normal 0.0-0.45 [facility] Comment on above: Performed By: #### C BC, CMP, MG, PHOS ####[address] Eosinophils/100 WBC (Bld) 2.5 % Normal . [facility] Comment on above: Performed By: #### C BC, CMP, MG, PHOS ####[address] Erythrocyte distribution width (RBC) [Ratio] 21.9 % High 12.0-14.8 [facility] Comment on above: Performed By: #### C BC, CMP, MG, PHOS ####[address] Hematocrit (Bld) [Volume fraction] 27.8 % Low 38.8-50.0 [facility] Comment on above: Performed By: #### C BC, CMP, MG, PHOS ####[address] Hemoglobin (Bld) [Mass/Vol] 8.9 g/dL Low 13.0-17.0 [facility] Comment on above: Performed By: #### C BC, CMP, MG, PHOS ####[address] Lymphocytes (Bld) [#/Vol] 1.8 10*3/uL Normal 1.00-4.8 [facility] Comment on above: Performed By: #### C BC, CMP, MG, PHOS ####[address] Lymphocytes/100 WBC (Bld) 20.9 % Normal . [facility] Comment on above: Performed By: #### C BC, CMP, MG, PHOS ####[address] MCH (RBC) [Entitic mass] 22.7 pg Low 27.5-35.2 [facility] Comment on above: Performed By: #### C BC, CMP, MG, PHOS ####[address] MCV (RBC) [Entitic vol] 70.7 fL Low 83.5-101 [facility] Comment on above: Performed By: #### C BC, CMP, MG, PHOS ####[address] Mean Corpuscular HGB Conc 32.1 g/dL Low 32.5-35.6 [facility] Comment on above: Performed By: #### C BC, CMP, MG, PHOS ####[address] Monocytes (Bld) [#/Vol] 1.0 10*3/uL High 0.0-0.8 [facility] Comment on above: Performed By: #### C BC, CMP, MG, PHOS ####[address] Monocytes/100 WBC (Bld) 10.9 % Normal . [facility] Comment on above: Performed By: #### C BC, CMP, MG, PHOS ####[address] Neutrophils (Bld) [#/Vol] 5.6 10*3/uL Normal 1.8-7.7 [facility] Comment on above: Performed By: #### C BC, CMP, MG, PHOS ####[address] Neutrophils/100 WBC (Bld) 64.5 % Normal . [facility] Comment on above: Performed By: #### C BC, CMP, MG, PHOS ####[address] NRBC% 0.2 /100{WBC} Normal 0-0.5 [facility] Comment on above: Performed By: #### C BC, CMP, MG, PHOS ####[place] [id number] [facility] Platelet mean volume (Bld) [Entitic vol] 8.7 fL Normal 6.6-10.1 [facility] Comment on above: Performed By: #### C BC, CMP, MG, PHOS ####[place] [id number] [facility] Platelets (Bld) [#/Vol] 265 10*3/uL Normal 150-450 [facility] Comment on above: Performed By: #### C BC, CMP, MG, PHOS ####[address] RBC (Bld) [#/Vol] 3.93 10*6/uL Normal 3.90-5.60 [facility] Comment on above: Performed By: #### C BC, CMP, MG, PHOS ####[address] WBC (Bld) [#/Vol] 8.8 10*3/uL Normal 4.1-10.5 [facility] Comment on above: Performed By: #### C BC, CMP, MG, PHOS ####[address] Comprehensive Metabolic Pane guy 03-09-2024 Albumin [Mass/Vol] 3.5 g/dL Normal 3.5-5.7 [facility] Comment on above: Performed By: #### C BC, CMP, MG, PHOS ####[address] Albumin/Globulin [Mass ratio] 1.0 {ratio} Normal [facility] Comment on above: Performed By: #### C BC, CMP, MG, PHOS ####[address] ALP [Catalytic activity/Vol] 110 U/L High 34-104 [facility] Comment on above: Performed By: #### C BC, CMP, MG, PHOS ####[place] [address] [place] [id number] [facility] ALT [Catalytic activity/Vol] 10 U/L Normal 7-52 [facility] Comment on above: Performed By: #### C BC, CMP, MG, PHOS ####[address] Anion gap [Moles/Vol] 14.9 mmol/L Normal 6.0-15.0 Th e [facility] Comment on above: Performed By: #### C BC, CMP, MG, PHOS ####[place] [id number] [facility] AST [Catalytic activity/Vol] 14 U/L Normal 13-39 [facility] Comment on above: Performed By: #### C BC, CMP, MG, PHOS ####[address] Bilirubin [Mass/Vol] 0.5 mg/dL Normal 0.3-1.0 [facility] Comment on above: Performed By: #### C BC, CMP, MG, PHOS ####[address] Calcium [Mass/Vol] 9.0 mg/dL Normal 8.6-10.3 [facility] Comment on above: Performed By: #### C BC, CMP, MG, PHOS ####[address] Chloride [Moles/Vol] 110 mmol/L High 98-107 [facility] Comment on above: Performed By: #### C BC, CMP, MG, PHOS ####[place] [id number] [facility] CO2 [Moles/Vol] 20.8 mmol/L Low 21.0-31.0 [facility] Comment on above: Performed By: #### C BC, CMP, MG, PHOS ####[address] Creatinine [Mass/Vol] 1.80 mg/dL High 0.70-1.30 [facility] Comment on above: Performed By: #### C BC, CMP, MG, PHOS ####[address] Creatinine Clr Calc Pharmacy 47.64 Normal [facility] Comment on above: Performed By: #### C BC, CMP, MG, PHOS ####[address] GFR/1.73 sq M.predicted MDRD (S/P/Bld) [Vol rate/Area] 43.092 mL/min/{1.73_m2} Normal [facility] Comment on above: Performed By: #### C BC, CMP, MG, PHOS ####[address] Globulin (S) [Mass/Vol] 3.5 g/dL Normal [facility] Comment on above: Performed By: #### C BC, CMP, MG, PHOS ####[address] Glucose [Mass/Vol] 91 mg/dL Normal 70-100 [facility] Comment on above: Result Comment: [facility] Glucose Reference Range is dependent on time and content of last meal. Glucose of more than 200 mg/dL in a nonstressed, ambulatory subject supports the diagnosis of Diabetes Mellitus. ADA recommended reference range Performed By: #### C BC, CMP, MG, PHOS ####[address] Potassium [Moles/Vol] 3.7 mmol/L Normal 3.5-5.1 [facility] Comment on above: Performed By: #### C BC, CMP, MG, PHOS ####[address] Protein [Mass/Vol] 7.0 g/dL Normal 6.4-8.9 [facility] Comment on above: Performed By: #### C BC, CMP, MG, PHOS ####[place] [id number] [facility] Sodium [Moles/Vol] 142 mmol/L Normal 136-145 [facility] Comment on above: Performed By: #### C BC, CMP, MG, PHOS ####[facility] [id number] [place] [address] [facility] Urea nitrogen [Mass/Vol] 19 mg/dL Normal 7-25 [facility] Comment on above: Performed By: #### C BC, CMP, MG, PHOS ####[facility] [id number] [place] [address] [facility] Glucose Poct Glucometerson 1 Glucose [Mass/Vol] 386 mg/dL Normal [facility] Comment on above: Result Comment: [place] Glucose Reference Range is dependent on time and content of last meal. Glucose of more than 200 mg/dL in a nonstressed, ambulatory subject supports the diagnosis of Diabetes Mellitus.PERFORMED BY:[address] [place], [place] [phone] MEDICAL DIRECTORCLIFFORD LOBATO M.D. Performed By: #### G LULS ####Point of Care testing, Commemt1 Glu2: Cleaned Meter Normal [facility] Comment on above: Result Comment: PERF ORMED BY:[address] [place], [place] [phone] MEDICAL DIRECTORCLIFFORD LOBATO M.D. Performed By: #### G LULS ####Point of Care testing, Glucose [Mass/Vol] 128 mg/dL Normal [facility] Comment on above: Result Comment: [place] [facility] Glucose Reference Range is dependent on time and content of last meal. Glucose of more than 200 mg/dL in a nonstressed, ambulatory subject supports the diagnosis of Diabetes Mellitus. Performed By: #### G LULS ####Point of Care testing, Glucose [Mass/Vol] 119 mg/dL Normal [facility] Comment on above: Result Comment: [place] Glucose Reference Range is dependent on time and content of last meal. Glucose of more than 200 mg/dL in a nonstressed, ambulatory subject supports the diagnosis of Diabetes Mellitus.PERFORMED BY:[place] [address] [place], [place] [phone] MEDICAL DIRECTORCLIFFORD LOBATO M.D. Performed By: #### G LULS ####Point of Care testing, Magnesiumon 03-09-2024 Magnesium [Mass/Vol] 1.5 mg/dL Low 1.9-2.7 [facility] Comment on above: Result Comment: PERF ORMED BY:[place] [address] [place], [place] [phone] MEDICAL DIRECTORCLIFFORD LOBATO M.D. Performed By: #### C BC, CMP, MG, PHOS ####[place] [address] [place] [id number] [facility] Phosphoruson 03-09-2024 Phosphate [Mass/Vol] 3.1 mg/dL Normal 2.5-4.5 [facility] Comment on above: Performed By: #### C BC, CMP, MG, PHOS ####[place] [id number] [facility] US renal BIon 03-09-2024 US renal BI Normal [facility] XR elbow LT 2Von 03-09-2024 XR elbow LT 2V Normal [facility] Activated partial thrombopla stin time (aPTT) in platelet poor plasma by coagulation aOrdered By: Bonilla Rubin on 03-08-2024 aPTT Coag (PPP) [Time] 29.6 s 25.1-36.5 [facility] Comment on above: A hematocrit value g reater than 55% may lead to inaccurate results in coagulation testing. Patients having hematocrit values >55% require a special collection tube for coagulation studies. Please contact the laboratory at [phone] for redraw instructions. Alanine aminotransferase [En zymatic activity/volume] in Serum or PlasmaOrdered By: Bonilla Rubin on 03-08-2024 ALT [Catalytic activity/Vol] 13 U/L Normal 7-52 [facility] Comment on above: Performed By: #### P TT, HS TROP, PT, CMP, CK, CBC ####[place] [address] [place] [address] [facility] Albumin [Mass/volume] in Ser um or Plasma by Bromocresol green (BCG) dye binding methoOrdered By: Bonilla Rubin on 03-08-2024 Albumin BCG dye [Mass/Vol] 3.8 g/dL 3.5-5.7 [facility] Alkaline phosphatase [Enzyma tic activity/volume] in Serum or PlasmaOrdered By: Bonilla Rubin on 03-08-2024 ALP [Catalytic activity/Vol] 116 U/L High 34-104 [facility] Comment on above: Performed By: #### P TT, HS TROP, PT, CMP, CK, CBC ####[place] [address] [place] [address] [facility] Ammonia [Moles/volume] in Pl asmaOrdered By: João Powell on 03-08-2024 Ammonia (P) [Moles/Vol] 33 umol/L Normal [facility] Comment on above: Result Comment: PERF ORMED BY:[address] [place], [place] [phone] MEDICAL DIRECTORCLIFFORD LOBATO M.D. Performed By: #### A MM ####[address] [address] [facility] Ammonia (P) [Moles/Vol] Ammonia [Moles/volume] in Plasma [facility] Amphetamine Screen Ql (U)Ord ered By: Bonilla Rubin on 03-08-2024 Amphetamines Ql (U) Amphetamines screen Negativ e [facility] Amphetamines Ql (U) Negative Negative [facility] Appearance of UrineOrdered B y: Bonilla Rubin on 03-08-2024 Appearance (U) Urine appearance Clear [facility] Arterial Blood Gason 024 ABG Base Excess -1.4 mmol/L Normal -3.0-3.0 [facility] Comment on above: Performed By: #### A BG ####Point of Care testing, ABG Frac Inspired O2 21 % Normal [facility] Comment on above: Performed By: #### A BG ####Point of Care testing, ABG Oxygen Content 6.4 mmol/L Low 6.6-9.7 [facility] Comment on above: Performed By: #### A BG ####Point of Care testing, ABG Oxygen Saturation 97.1 % Normal 95.0-100.0 [facility] Comment on above: Performed By: #### A BG ####Point of Care testing, ABG PCO2 33.3 mm[Hg] Low 35.0-45.0 [facility] Comment on above: Performed By: #### A BG ####Point of Care testing, ABG PH 7.44 Normal 7.35-7.45 [facility] Comment on above: Performed By: #### A BG ####Point of Care testing, ABG PO2 92.6 mm[Hg] Normal 80.0-100.0 [facility] Comment on above: Performed By: #### A BG ####Point of Care testing, Respiratory Critical Normal [facility] Comment on above: Result Comment: Crit ical Value called on: 03/08/2024 at 15:16PERFORMED BY:[place] [address] [place], [place] [phone] MEDICAL DIRECTORCLIFFORD LOBATO M.D. Performed By: #### A BG ####Point of Care testing, VBG Draw Site Left Radial Normal [facility] Comment on above: Performed By: #### A BG ####Point of Care testing, Arterial Blood GasOrdered By : Bonilla Rubin on 03-08-2024 CO2 [Moles/Vol] 23.2 mmol/L Normal 23.0-27.0 [facility] Comment on above: Performed By: #### A BG ####Point of Care testing, HCO3 (Bld) [Moles/Vol] 22.2 mmol/L Low 23.0-29.0 [facility] Comment on above: Performed By: #### A BG ####Point of Care testing, Aspartate aminotransferase [ Enzymatic activity/volume] in Serum or PlasmaOrdered By: Bonilla Rubin on 03-08-2024 AST [Catalytic activity/Vol] 14 U/L Normal 13-39 [facility] Comment on above: Performed By: #### P TT, HS TROP, PT, CMP, CK, CBC ####[address] Automated basophil %Ordered By: Bonilla Rubin on 03-08-2024 Basophils/100 WBC (Bld) 1.0 % Normal . [facility] Comment on above: Performed By: #### P TT, HS TROP, PT, CMP, CK, CBC ####[address] Automated basophil countOrde red By: Bonilla Rubin on 03-08-2024 Basophils (Bld) [#/Vol] 0.1 10*3/uL Normal 0.0-0.2 [facility] Comment on above: Result Comment: PERF ORMED BY:[address] [place], [place] [phone] MEDICAL DIRECTORCLIFFORD LOBATO M.D. Performed By: #### P TT, HS TROP, PT, CMP, CK, CBC ####[address] Automated blood monocyte cou ntOrdered By: Bonilla Rubin on 03-08-2024 Monocytes (Bld) [#/Vol] 1.2 10*3/uL High 0.0-0.8 [facility] Comment on above: Performed By: #### P TT, HS TROP, PT, CMP, CK, CBC ####[address] Automated eosinophil %Ordere d By: Bonilla Rubin on 03-08-2024 Eosinophils/100 WBC (Bld) 3.3 % Normal . [facility] Comment on above: Performed By: #### P TT, HS TROP, PT, CMP, CK, CBC ####[address] Automated eosinophil countOr dered By: Bonilla Rubin on 03-08-2024 Eosinophils (Bld) [#/Vol] 0.3 10*3/uL Normal 0.0-0.45 [facility] Comment on above: Performed By: #### P TT, HS TROP, PT, CMP, CK, CBC ####[facility] [address] Automated monocyte %Ordered By: Bonilla Rubin on 03-08-2024 Monocytes/100 WBC (Bld) 13.2 % Normal . [facility] Comment on above: Performed By: #### P TT, HS TROP, PT, CMP, CK, CBC ####[facility] [place] [address] Automated neutrophil %Ordere d By: Bonilla Rubin on 03-08-2024 Neutrophils/100 WBC (Bld) 69.4 % Normal . [facility] Comment on above: Performed By: #### P TT, HS TROP, PT, CMP, CK, CBC ####[facility] [address] [place] [address] Bacterial blood cultureOrder ed By: Bonilla Rubin on 03-08-2024 Bacteria identified Cx Nom (Bld) Bacterial blood culture [facility] Bacteria identified Cx Nom (Bld) Bacterial blood culture [facility] Bacteria identified Cx Nom (Bld) NO GROWTH 5 DAYS [facility] Bacteria identified Cx Nom (Bld) NO GROWTH 5 DAYS [facility] Barbiturates [Presence] in U rine by Screen methodOrdered By: Bonilla Rubin on 03-08-2024 Barbiturates Screen Ql (U) Negative Negative [facility] Barbiturates Screen Ql (U) Barbiturates [Presence] in Urine by Screen method Negative [facility] Benzodiazepines Screen Ql (U )Ordered By: Bonilla Rubin on 03-08-2024 Benzodiazepines Ql (U) Negative Negative [facility] Benzodiazepines Ql (U) Benzodiazepines [Presence] in Urine by Screen method Negative [facility] Benzoylecgonine [Presence] i n Urine by Screen methodOrdered By: Bonilla Rubin on 03-08-2024 Benzoylecgonine Screen Ql (U) Negative Negative [facility] Benzoylecgonine Screen Ql (U) Benzoylecgonine [Presence] in Urine by Screen method Negative [facility] Bilirubin Test strip Ql (U)O rdered By: Bonilla Rubin on 03-08-2024 Bilirubin Ql (U) Negative Negative [facility] Bilirubin Ql (U) Bilirubin.total [Presence] in Urine by Test strip Negative [facility] Bilirubin.total [Mass/volume ] in Serum or PlasmaOrdered By: Bonilla Rubin on 03-08-2024 Bilirubin [Mass/Vol] 0.4 mg/dL Normal 0.3-1.0 [facility] Comment on above: Performed By: #### P TT, HS TROP, PT, CMP, CK, CBC ####[address] BioFire Not Detectedon 03-08 BioFire Not Detected Not detected Normal Not Detecte [facility] Comment on above: Result Comment: This is a duplicate RP2.1 COVID (PCR) result to be used for statistical tracking purpose only.PERFORMED BY:[address] [phone] MEDICAL DIRECTORCLIFFORD LOBATO M.D. Performed By: #### R QUE PANEL UPP., BIOFIRECOVNOTDE ####[place] [id number] [facility] Blood Cultureon 03-08-2024 Bacteria identified Cx Nom (Bld) NO GROWTH 5 DAYS PERFORMED BY: [facility] [address] [place] [address] PATHOLOGIST IGNITER CAPPER CLIFFORD LOBATO M.D. Normal [facility] Comment on above: Performed By: #### C UBLD, LACTIC ####[place] [id number] [facility] Bacteria identified Cx Nom (Bld) NO GROWTH 5 DAYS PERFORMED BY: [facility] [address] [place] [id number] PATHOLOGIST IGNITER CAPPER CLIFFORD LOBATO M.D. Normal [facility] Comment on above: Performed By: #### C UBLD, LACTIC ####[place] [address] [place] [address] [facility] COVID-19 Detected/Not Detect edOrdered By: Bonilla Rubin on 03-08-2024 SARS-CoV-2 (COVID-19) RNA NELLY+non-probe Ql (Nph) Not detected Not Detecte [facility] Comment on above: This is a duplicate RP2.1 COVID (PCR) result to be used for statistical tracking purpose only. CT angio headon 03-08-2024 CT angio head Normal [facility] Calcium [Mass/volume] in Ser um or PlasmaOrdered By: Bonilla Rubin on 03-08-2024 Calcium [Mass/Vol] 9.6 mg/dL Normal 8.6-10.3 [facility] Comment on above: Performed By: #### P TT, HS TROP, PT, CMP, CK, CBC ####[facility] [place] [address] [facility] Cannabinoids [Presence] in U rine by Screen methodOrdered By: Bonilla Rubin on 03-08-2024 Cannabinoids Screen Ql (U) Negative Negative [facility] Comment on above: These are unconfirme d results and should not be used for legal purposes. Drug Cut-Off Concentration: AMPH 1000 ng/mL JERMAINE 200 ng/mL SAVANNAH 200 ng/mL COCM 300 ng/mL OP 300 ng/mL PCP 25 ng/mL THC 20 ng/mL Cannabinoids Screen Ql (U) Cannabinoids [Presence] in Urine by Screen method Negative [facility] Comment on above: These are unconfirme d results and should not be used for legal purposes. Drug Cut-Off Concentration: AMPH 1000 ng/mL JERMAINE 200 ng/mL SAVANNAH 200 ng/mL COCM 300 ng/mL OP 300 ng/mL PCP 25 ng/mL THC 20 ng/mL Capillary blood glucose ashley urement by glucometer (mass/volume)Ordered By: Bonilla Rubin on 03-08-2024 Glucose [Mass/Vol] 182 mg/dL Normal [facility] Comment on above: Result Comment: [place] Glucose Reference Range is dependent on time and content of last meal. Glucose of more than 200 mg/dL in a nonstressed, ambulatory subject supports the diagnosis of Diabetes Mellitus.PERFORMED BY:[address] [place], [place] [phone] MEDICAL DIRECTORCLIFFORD LOBATO M.D. Performed By: #### G NELI ####Point of Care testing, Carbon dioxide, total [Moles /volume] in Serum or PlasmaOrdered By: Bonilla Rubin on 03-08-2024 CO2 [Moles/Vol] 25.0 mmol/L Normal 21.0-31.0 [facility] Comment on above: Performed By: #### P TT, HS TROP, PT, CMP, CK, CBC ####[place] [id number] [facility] Chloride [Moles/volume] in S ilia or PlasmaOrdered By: Bonilla Rubin on 03-08-2024 Chloride [Moles/Vol] 106 mmol/L Normal 98-107 [facility] Comment on above: Performed By: #### P TT, HS TROP, PT, CMP, CK, CBC ####[place] [id number] [facility] Color Auto (U)Ordered By: Yasmin Rubin on 03-08-2024 Color (U) Color of Urine by Auto Yellow [facility] Color of Urine by AutoOrdere d By: Bonilla Rubin on 03-08-2024 Color (U) Light-yellow Normal Yellow [facility] Comment on above: Order Comment: Name Collection Type:: Straight Catheter Performed By: #### U A ####[place] [id number] [facility] Complete Blood Count Auto Di ffon 03-08-2024 Mean Corpuscular HGB Conc 32.0 g/dL Low 32.5-35.6 [facility] Comment on above: Performed By: #### P TT, HS TROP, PT, CMP, CK, CBC ####[address] Monocytes/100 WBC (Bld) 18.68 % Normal 0.00-20.00 [facility] Comment on above: Performed By: #### P TT, HS TROP, PT, CMP, CK, CBC ####[place] [address] [place] [address] [facility] NRBC% 0.2 /100{WBC} Normal 0-0.5 [facility] Comment on above: Performed By: #### P TT, HS TROP, PT, CMP, CK, CBC ####[address] [address] [facility] Comprehensive Metabolic Pane guy 03-08-2024 Albumin [Mass/Vol] 3.8 g/dL Normal 3.5-5.7 [facility] Comment on above: Performed By: #### P TT, HS TROP, PT, CMP, CK, CBC ####[place] [id number] [facility] Creatinine Clr Calc Pharmacy 44.90 Normal [facility] Comment on above: Result Comment: PERF ORMED BY:[address] [place], [place] [phone] MEDICAL DIRECTORCLIFFORD LOBATO M.D. Performed By: #### P TT, HS TROP, PT, CMP, CK, CBC ####[place] [id number] [facility] GFR/1.73 sq M.predicted MDRD (S/P/Bld) [Vol rate/Area] 40.131 mL/min/{1.73_m2} Normal [facility] Comment on above: Performed By: #### P TT, HS TROP, PT, CMP, CK, CBC ####[place] [id number] [facility] Creatine kinase [Enzymatic a ctivity/volume] in Serum or PlasmaOrdered By: Bonilla Rubin on 03-08-2024 CK [Catalytic activity/Vol] 181 U/L Normal [facility] Comment on above: Performed By: #### P TT, HS TROP, PT, CMP, CK, CBC ####[address] [address] [facility] CK [Catalytic activity/Vol] Creatine kinase [Enzymatic activity/volume] in Serum or Plasma [facility] Creatinine [Mass/volume] in Serum or PlasmaOrdered By: Bonilla Rubin on 03-08-2024 Creatinine [Mass/Vol] 1.91 mg/dL High 0.70-1.30 [facility] Comment on above: Performed By: #### P TT, HS TROP, PT, CMP, CK, CBC ####[place] [address] [place] [id number] [facility] Drug Screen,Urineon 03-08-20 24 Amphetamine Screen,Urine Negative Normal Negative [facility] Comment on above: Performed By: #### U RDS ####[place] [id number] [facility] Barbiturate Screen,Urine Negative Normal Negative [facility] Comment on above: Performed By: #### U RDS ####[place] [id number] [facility] Benzodiazepines Screen,Urine Negative Normal Negative [facility] Comment on above: Performed By: #### U RDS ####[place] [id number] [facility] Cannabinoid Screen,Urine Negative Normal Negative [facility] Comment on above: Result Comment: Thes e are unconfirmed results and should not be used for legal purposes. Drug Cut-Off Concentration: AMPH 1000 ng/mL JERMAINE 200 ng/mL SAVANNAH 200 ng/mL COCM 300 ng/mL OP 300 ng/mL PCP 25 ng/mL THC 20 ng/mLPERFORMED BY:[address] [place], [place] [phone] MEDICAL DIRECTORCLIFFORD LOBATO M.D. Performed By: #### U RDS ####[address] [address] [facility] Cocaine Screen,Urine Negative Normal Negative [facility] Comment on above: Performed By: #### U RDS ####[place] [id number] [facility] Opiate Screen,Urine Negative Normal Negative [facility] Comment on above: Performed By: #### U RDS ####[place] [id number] [facility] Phencyclidine Screen,Urine Negative Normal Negative [facility] Comment on above: Performed By: #### U RDS ####[address] [address] [facility] ECG 12 lead ECGon 03-08-2024 ECG 12 lead ECG Normal [facility] Erythrocyte distribution wid th [Ratio] by Automated countOrdered By: Bonilla Rubin on 03-08-2024 Erythrocyte distribution width (RBC) [Ratio] 22.0 % High 12.0-14.8 [facility] Comment on above: Performed By: #### P TT, HS TROP, PT, CMP, CK, CBC ####[address] [address] [facility] Erythrocytes [#/volume] in B lood by Automated countOrdered By: Bonilla Rubin on 03-08-2024 RBC (Bld) [#/Vol] 4.54 10*6/uL Normal 3.90-5.60 [facility] Comment on above: Performed By: #### P TT, HS TROP, PT, CMP, CK, CBC ####[address] [address] [facility] Glucose [Mass/volume] in Ser um or PlasmaOrdered By: Bonilla Rubin on 03-08-2024 Glucose [Mass/Vol] 167 mg/dL High 70-100 [facility] Comment on above: Result Comment: [facility] Glucose Reference Range is dependent on time and content of last meal. Glucose of more than 200 mg/dL in a nonstressed, ambulatory subject supports the diagnosis of Diabetes Mellitus. ADA recommended reference range Performed By: #### P TT, HS TROP, PT, CMP, CK, CBC ####[address] [address] [facility] Glucose [Mass/volume] in Uri ne by Test stripOrdered By: Bonilla Rubin on 03-08-2024 Glucose Test strip (U) [Mass/Vol] >=1000 mg/dL High Normal [facility] Glucose Test strip (U) [Mass/Vol] Glucose [Mass/volume] in Urine by Test strip [facility] Hematocrit [Volume Fraction] of Blood by Automated countOrdered By: Bonilla Rubin on 03-08-2024 Hematocrit (Bld) [Volume fraction] 32.2 % Low 38.8-50.0 [facility] Comment on above: Performed By: #### P TT, HS TROP, PT, CMP, CK, CBC ####[facility] [id number] Hemoglobin Test strip Ql (U) Ordered By: Bonilla Rubin on 03-08-2024 Hemoglobin Ql (U) Negative Negative [facility] Hemoglobin Ql (U) Hemoglobin [Presence ] in Urine by Test strip Negative [facility] Hemoglobin [Mass/volume] in BloodOrdered By: Bonilla Rubin on 03-08-2024 Hemoglobin (Bld) [Mass/Vol] 10.3 g/dL Low 13.0-17.0 [facility] Comment on above: Performed By: #### P TT, HS TROP, PT, CMP, CK, CBC ####[place] [address] INR in Platelet poor plasma by Coagulation assayOrdered By: Bonilla Rubin on 03-08-2024 INR Coag (PPP) [Relative time] 1.1 {INR} Normal [facility] Comment on above: INR Therapeutic Rang [...] TT, HS TROP, PT, CMP, CK, CBC ####[place] [address] INR Coag (PPP) [Relative time] INR in Platelet poor plasma by Coagulation assay [facility] Comment on above: INR Therapeutic Rang [...] i n Urine by Test strip Negative [facility] Ketones [Presence] in Urine by Test stripOrdered By: Bonilla Rubin on 03-08-2024 Ketones Ql (U) Negative Normal Negative [facility] Comment on above: Order Comment: Name Collection Type:: Straight Catheter Performed By: #### U A ####[place] [id number] [place] Lactate [Moles/volume] in Se rum or PlasmaOrdered By: Bonilla Rubin on 03-08-2024 Lactate [Moles/Vol] 1.1 mmol/L Normal 0.5-2.2 [facility] Comment on above: Result Comment: PERF ORMED BY:[address] [place], [place] [phone] MEDICAL BRISA LOBATO M.D. Performed By: #### C UBLD, LACTIC ####[place] [id number] [facility] Lactate [Moles/Vol] Lactate [Moles/volum e] in Serum or Plasma 0.5-2.2 [facility] Leukocyte esterase [Presence ] in Urine by Test stripOrdered By: Bonilla Rubin on 03-08-2024 Leukocyte esterase Test strip Ql (U) Negative Normal Negative [facility] Comment on above: Order Comment: Name Collection Type:: Straight Catheter Performed By: #### U A ####[address] [address] [facility] Leukocyte esterase Test strip Ql (U) Leukocyte esterase [Presence] in Urine by Test strip Negative [facility] Leukocytes [#/volume] correc jorge for nucleated erythrocytes in Blood by Automated counOrdered By: Bonilla Rubin on 03-08-2024 WBC corrected for nucl RBC Auto (Bld) [#/Vol] 8.9 10*3/uL 4.1-10.5 [facility] Leukocytes [#/volume] in Blo od by Automated countOrdered By: Bonilla Rubin on 03-08-2024 WBC (Bld) [#/Vol] 8.9 10*3/uL Normal 4.1-10.5 [facility] Comment on above: Performed By: #### P TT, HS TROP, PT, CMP, CK, CBC ####[address] Lymphocytes [#/volume] in Bl ood by Automated countOrdered By: Bonilla Rubin on 03-08-2024 Lymphocytes (Bld) [#/Vol] 1.2 10*3/uL Normal 1.00-4.8 [facility] Comment on above: Performed By: #### P TT, HS TROP, PT, CMP, CK, CBC ####[address] Lymphocytes/100 leukocytes i n Blood by Automated countOrdered By: Bonilla Rubin on 03-08-2024 Lymphocytes/100 WBC (Bld) 13.1 % Normal . [facility] Comment on above: Performed By: #### P TT, HS TROP, PT, CMP, CK, CBC ####[address] MCH [Entitic mass] by Automa jorge countOrdered By: Bonilla Rubin on 03-08-2024 MCH (RBC) [Entitic mass] 22.7 pg Low 27.5-35.2 [facility] Comment on above: Performed By: #### P TT, HS TROP, PT, CMP, CK, CBC ####[address] MCHC Auto (RBC) [Mass/Vol]Or dered By: Bonilla Rubin on 03-08-2024 MCHC (RBC) [Mass/Vol] 32.0 g/dL Low 32.5-35.6 [facility] MCV [Entitic volume] by Auto mated countOrdered By: Bonilla Rubin on 03-08-2024 MCV (RBC) [Entitic vol] 71.0 fL Low 83.5-101 [facility] Comment on above: Performed By: #### P TT, HS TROP, PT, CMP, CK, CBC ####[facility] [id number] MR head/brain wo conon 03-08 MR head/brain wo con Normal [facility] Monocyte distribution width [Entitic volume] in Blood by AutomatedOrdered By: Bonilla Rubin on 03-08-2024 Monocyte distribution width Auto (Bld) [Entitic vol] 18.68 % 0.00-20.00 [facility] Monocyte distribution width Auto (Bld) [Entitic vol] Monocyte distribution width [Entitic volume] in Blood by Automated 0.00-20.00 [facility] Neutrophils [#/volume] in Bl ood by Automated countOrdered By: Bonilla Rubin on 03-08-2024 Neutrophils (Bld) [#/Vol] 6.2 10*3/uL Normal 1.8-7.7 [facility] Comment on above: Performed By: #### P TT, HS TROP, PT, CMP, CK, CBC ####[facility] Nitrite Test strip Ql (U)Ord ered By: Bonilla Rubin on 03-08-2024 Nitrite Ql (U) Negative Negative [facility] Nitrite Ql (U) Nitrite [Presence] i n Urine by Test strip Negative [facility] No Panel InformationOrdered By: Bonilla Rubin on 03-08-2024 Arterial Blood Base Excess -1.4 mmol/L -3.0-3.0 [facility] Arterial Blood Oxygen Content 6.4 mmol/L Low 6.6-9.7 [facility] Arterial Blood Oxygen Saturation 97.1 % 95.0-100.0 [facility] Arterial Blood Partial Pressure CO2 33.3 mm[Hg] Low 35.0-45.0 [facility] Arterial Blood Partial Pressure O2 92.6 mm[Hg] 80.0-100.0 [facility] Arterial Blood pH 7.44 7.35-7.45 [facility] Blood Gas Critical Value See comment [facility] Comment on above: Critical Value shai hooker on: 03/08/2024 at 15:16 Blood Gas Sample Site Left radial [facility] FiO2 21 % [facility] 7.44 7.35-7.45 [facility] 33.3 mm[Hg] Low 35.0-45.0 [facility] 92.6 mm[Hg] 80.0-100.0 [facility] 22.2 mmol/L Low 23.0-29.0 [facility] -1.4 mmol/L -3.0-3.0 [facility] 97.1 % 95.0-100.0 [facility] 6.4 mmol/L Low 6.6-9.7 [facility] 23.2 mmol/L 23.0-27.0 [facility] 21 % [facility] Left radial [facility] See comment [facility] 40.131 mL/Min [facility] 44.90 [facility] Nucleated erythrocytes [Pres ence] in Blood by Automated countOrdered By: Bonilla Rubin on 03-08-2024 Nucleated RBC Auto Ql (Bld) 0.2 /100{WBC} 0-0.5 [facility] Opiates [Presence] in Urine by Screen methodOrdered By: Bonilla Rubin on 03-08-2024 Opiates Screen Ql (U) Negative Negative [facility] Opiates Screen Ql (U) Opiates [Presence] in Urine by Screen method Negative [facility] Partial Thromboplastin Timeo n 03-08-2024 aPTT Coag (Bld) [Time] 29.6 s Normal 25.1-36.5 [facility] Comment on above: Result Comment: A he matocrit value greater than 55% may lead to inaccurate results in coagulation testing. Patients having hematocrit values >55% require a special collection tube for coagulation studies. Please contact the laboratory at [phone] for redraw instructions.PERFORMED BY:[address] [place], [place] [phone] MEDICAL DIRECTORCLIFFORD LOBATO M.D. Performed By: #### P TT, HS TROP, PT, CMP, CK, CBC ####[place] [id number] [facility] Phencyclidine Screen Ql (U)O rdered By: Bonilla Rubin on 03-08-2024 Phencyclidine Ql (U) Negative Negative [facility] Phencyclidine Ql (U) Phencyclidine [Pres ence] in Urine by Screen method Negative [facility] Platelet mean volume [Entiti c volume] in Blood by Automated countOrdered By: Bonilla Rubin on 03-08-2024 Platelet mean volume (Bld) [Entitic vol] 8.2 fL Normal 6.6-10.1 [facility] Comment on above: Performed By: #### P TT, HS TROP, PT, CMP, CK, CBC ####[address] Platelets [#/volume] in Bloo d by Automated countOrdered By: Bonilla Rubin on 03-08-2024 Platelets (Bld) [#/Vol] 286 10*3/uL Normal 150-450 [facility] Comment on above: Performed By: #### P TT, HS TROP, PT, CMP, CK, CBC ####[place] [id number] [facility] Potassium [Moles/volume] in Serum or PlasmaOrdered By: Bonilla Rubin on 03-08-2024 Potassium [Moles/Vol] 4.1 mmol/L Normal 3.5-5.1 [facility] Comment on above: Performed By: #### P TT, HS TROP, PT, CMP, CK, CBC ####[place] [id number] [facility] Protein Test strip (U) [Mass /Vol]Ordered By: Bonilla Rubin on 03-08-2024 Protein (U) [Mass/Vol] Negative Negative [facility] Protein (U) [Mass/Vol] Protein [Mass/vol ume] in Urine by Test strip Negative [facility] Protein [Mass/volume] in Ser um or PlasmaOrdered By: Bonilla Rubin on 03-08-2024 Protein [Mass/Vol] 7.7 g/dL Normal 6.4-8.9 [facility] Comment on above: Performed By: #### P TT, HS TROP, PT, CMP, CK, CBC ####[facility] [place] [id number] [facility] Prothrombin time (PT)Ordered By: Bonilla Rubin on 03-08-2024 PT Coag (PPP) [Time] 13.0 s High 9.0-12.9 [facility] Comment on above: A hematocrit value g reater than 55% may lead to inaccurate results in coagulation testing. Patients having hematocrit values >55% require a special collection tube for coagulation studies. Please contact the laboratory at [phone] for redraw instructions. Result Comment: A he matocrit value greater than 55% may lead to inaccurate results in coagulation testing. Patients having hematocrit values >55% require a special collection tube for coagulation studies. Please contact the laboratory at [phone] for redraw instructions. Performed By: #### P TT, HS TROP, PT, CMP, CK, CBC ####[place] [id number] [facility] PT Coag (PPP) [Time] Prothrombin time (PT) High 9.0- 12.9 [facility] Comment on above: A hematocrit value g reater than 55% may lead to inaccurate results in coagulation testing. Patients having hematocrit values >55% require a special collection tube for coagulation studies. Please contact the laboratory at [phone] for redraw instructions. Respiratory (Upper) Panel, P CRon 03-08-2024 Respiratory (Upper) Panel, PCR Normal [facility] Comment on above: Performed By: #### R QUE PANEL UPP., BIOFIRECOVNOTDE ####[place] [address] [place] [id number] [facility] Respiratory pathogens DNA an d RNA panel - Nasopharynx by NELLY with non-probe detectionOrdered By: Bonilla Rubin on 10-04-2024 Respiratory pathogens DNA and RNA panel NELLY+non-probe (Nph) Respiratory pathogens DNA and RNA panel - Nasopharynx by NELLY with non-probe detection [facility] Respiratory pathogens DNA and RNA panel NELLY+non-probe (Nph) [facility] Serum globulin measurement b y calculation (mass/volume)Ordered By: Bonilla Rubin on 03-08-2024 Globulin (S) [Mass/Vol] 3.9 g/dL [facility] Comment on above: Performed By: #### P TT, HS TROP, PT, CMP, CK, CBC ####[facility] [id number] [place] [address] Serum or plasma albumin/glob ulin mass ratioOrdered By: Bonilla Rubin on 03-08-2024 Albumin/Globulin [Mass ratio] 1.0 {ratio} [facility] Comment on above: Performed By: #### P TT, HS TROP, PT, CMP, CK, CBC ####[address] Serum or plasma anion gap de terminationOrdered By: Bonilla Rubin on 03-08-2024 Anion gap [Moles/Vol] 14.1 mmol/L Normal 6.0-15.0 [facility] Comment on above: Performed By: #### P TT, HS TROP, PT, CMP, CK, CBC ####[address] Sodium [Moles/volume] in Ser um or PlasmaOrdered By: Bonilla Rubin on 03-08-2024 Sodium [Moles/Vol] 141 mmol/L Normal 136-145 [facility] Comment on above: Performed By: #### P TT, HS TROP, PT, CMP, CK, CBC ####[address] Specific gravity Test strip (U) [Rel density]Ordered By: Bonilla Rubin on 03-08-2024 Specific gravity (U) [Rel density] 1.013 1.001-1.03 0 [facility] Specific gravity (U) [Rel density] Specific gravity of Urine by Test strip 1.001-1.03 0 [facility] Troponin I High Sensitivityo n 03-08-2024 Troponin I High Sensitivity 6.1 pg/mL Normal 0.0-20.0 [facility] Comment on above: Result Comment: PERF ORMED BY:[place] [address] [place], [place] [phone] MEDICAL DIRECTORCLIFFORD LOBATO M.D. Performed By: #### P TT, HS TROP, PT, CMP, CK, CBC ####[address] [address] [facility] Troponin I.cardiac [Mass/vol ume] in Serum or Plasma by Detection limit <= 0.01 ng/Ordered By: Bonilla Rubin on 03-08-2024 Troponin I.cardiac DL <= 0.01 ng/mL [Mass/Vol] 6.1 pg/mL 0.0-20.0 [facility] Troponin I.cardiac DL <= 0.01 ng/mL [Mass/Vol] Troponin I.cardiac [Mass/volume] in Serum or Plasma by Detection limit <= 0.01 ng/ 0.0-20.0 [facility] Urea nitrogen [Mass/volume] in Serum or PlasmaOrdered By: Bonilla Rubin on 03-08-2024 Urea nitrogen [Mass/Vol] 19 mg/dL Normal 7-25 [facility] Comment on above: Performed By: #### P TT, HS TROP, PT, CMP, CK, CBC ####[address] [address] [facility] Urinalysison 03-08-2024 Bilirubin,Urine Negative Normal Negative [facility] Comment on above: Order Comment: Name Collection Type:: Straight Catheter Performed By: #### U A ####[address] [address] [facility] Glucose Ql (U) >=1000 High Normal [facility] Comment on above: Order Comment: Name Collection Type:: Straight Catheter Performed By: #### U A ####[address] [address] [facility] Nitrite,Urine Negative Normal Negative [facility] Comment on above: Order Comment: Name Collection Type:: Straight Catheter Performed By: #### U A ####[address] [address] [facility] Occult Blood,Urine Negative Normal Negative [facility] Comment on above: Order Comment: Name Collection Type:: Straight Catheter Result Comment: PERF ORMED BY:[place] [address] [address] [place], [place] [phone] MEDICAL DIRECTORCLIFFORD LOBATO M.D. Performed By: #### U A ####[address] [address] [facility] Protein,Urine Negative Normal Negative [facility] Comment on above: Order Comment: Name Collection Type:: Straight Catheter Performed By: #### U A ####[address] [address] [facility] Specificy [place],Urine 1.013 Normal 1.001-1.03 0 [facility] Comment on above: Order Comment: Name Collection Type:: Straight Catheter Performed By: #### U A ####[address] [address] [facility] Urobilinogen,Urine Normal Normal Normal [facility] Comment on above: Order Comment: Name Collection Type:: Straight Catheter Performed By: #### U A ####[address] [address] [facility] Urine appearanceOrdered By: Bonilla Rubin on 03-08-2024 Appearance (U) Clear Normal Clear [facility] Comment on above: Order Comment: Name Collection Type:: Straight Catheter Performed By: #### U A ####[address] [address] [facility] Urobilinogen Test strip (U) [Mass/Vol]Ordered By: Bonilla Rubin on 03-08-2024 Urobilinogen (U) [Mass/Vol] Normal mg/dL Normal [facility] Urobilinogen (U) [Mass/Vol] Urobilinogen [Mass/volume] in Urine by Test strip Normal [facility] XR chest 1V portableon 03-08 XR chest 1V portable Normal [facility] aPTT in Platelet poor plasma by Coagulation assayOrdered By: Bonilla Rubin on 03-08-2024 aPTT Coag (PPP) [Time] Activated partial thromboplastin time (aPTT) in platelet poor plasma by coagulation a 25.1-36.5 [facility] Comment on above: A hematocrit value g reater than 55% may lead to inaccurate results in coagulation testing. Patients having hematocrit values >55% require a special collection tube for coagulation studies. Please contact the laboratory at [phone] for redraw instructions. pH Test strip (U)Ordered By: Bonilla Rubin on 03-08-2024 pH (U) pH of Urine by Test strip 5.0-9.0 [facility] pH of Urine by Test stripOrd ered By: Bonilla Rubin on 03-08-2024 pH (U) 5.0 [pH] Normal 5.0-9.0 [facility] Comment on above: Order Comment: Name Collection Type:: Straight Catheter Performed By: #### U A ####[facility] [id number] [place] [id number] [facility] Alanine aminotransferase [En zymatic activity/volume] in Serum or PlasmaOrdered By: João Powell on 03-06-2024 ALT [Catalytic activity/Vol] 11 U/L Normal [facility] Comment on above: Performed By: #### M G, PHOS, CMP, DIFF CBC ####[facility] [id number] [place], [place] [address] [facility] ALT [Catalytic activity/Vol] Alanine aminotransferase [Enzymatic activity/volume] in Serum or Plasma [facility] Albumin [Mass/volume] in Ser um or Plasma by Bromocresol green (BCG) dye binding methoOrdered By: João Powell on 03-06-2024 Albumin BCG dye [Mass/Vol] 3.3 g/dL Low 3.5-5.7 [facility] Albumin BCG dye [Mass/Vol] Albumin [Mass/volume] in Serum or Plasma by Bromocresol green (BCG) dye binding metho Low 3.5-5.7 [facility] Alkaline phosphatase [Enzyma tic activity/volume] in Serum or PlasmaOrdered By: João Powell on 03-06-2024 ALP [Catalytic activity/Vol] 101 U/L Normal 34-104 [facility] Comment on above: Performed By: #### M G, PHOS, CMP, DIFF CBC ####[place] [id number] [address] ALP [Catalytic activity/Vol] Alkaline phosphatase [Enzymatic activity/volume] in Serum or Plasma 34-104 [facility] Anisocytosis LM Ql (Bld)Orde red By: João Powell on 03-06-2024 Anisocytosis Ql (Bld) Anisocytosis [Pres ence] in Blood by Light microscopy [facility] Anisocytosis [Presence] in B lood by Light microscopyOrdered By: João Powell on 03-06-2024 Anisocytosis Ql (Bld) Marked Normal [facility] Comment on above: Performed By: #### M G, PHOS, CMP, DIFF CBC ####[address] Aspartate aminotransferase [ Enzymatic activity/volume] in Serum or PlasmaOrdered By: João Powell on 03-06-2024 AST [Catalytic activity/Vol] 14 U/L Normal 13-39 [facility] Comment on above: Performed By: #### M G, PHOS, CMP, DIFF CBC ####[place] [id number] [facility] AST [Catalytic activity/Vol] Aspartate aminotransferase [Enzymatic activity/volume] in Serum or Plasma 13-39 [facility] Basophils Auto (Bld) [#/Vol] Ordered By: João Powell on 03-06-2024 Basophils (Bld) [#/Vol] N/A [facility] Basophils (Bld) [#/Vol] Automated basophil count [facility] Basophils/100 WBC Auto (Bld) Ordered By: João Powell on 03-06-2024 Basophils/100 WBC (Bld) N/A [facility] Basophils/100 WBC (Bld) Automated basophil % [facility] Basophils/100 WBC Manual cnt (Bld)Ordered By: João Powell on 10-02-2024 Basophils/100 WBC (Bld) Basophils/100 leukocytes in Blood by Manual count 0-2 [facility] Basophils/100 leukocytes in Blood by Manual countOrdered By: João Powell on 03-06-2024 Basophils/100 WBC (Bld) 1 % Normal 0-2 [facility] Comment on above: Performed By: #### M G, PHOS, CMP, DIFF CBC ####[facility] [id number] [address] Bilirubin.total [Mass/volume ] in Serum or PlasmaOrdered By: João Powell on 03-06-2024 Bilirubin [Mass/Vol] 0.4 mg/dL Normal 0.3-1.0 [facility] Comment on above: Performed By: #### M G, PHOS, CMP, DIFF CBC ####[facility] [place] [id number] [facility] Bilirubin [Mass/Vol] Bilirubin.total [Mass/volume] in Serum or Plasma 0.3-1.0 [facility] Calcium [Mass/volume] in Ser um or PlasmaOrdered By: João Powell on 03-06-2024 Calcium [Mass/Vol] 8.7 mg/dL Normal 8.6-10.3 [facility] Comment on above: Performed By: #### M G, PHOS, CMP, DIFF CBC ####[place] [id number] [facility] Calcium [Mass/Vol] Calcium [Mass/volume ] in Serum or Plasma 8.6-10.3 [facility] Capillary blood glucose ashley urement by glucometer (mass/volume)Ordered By: João Powell on 03-06-2024 Glucose [Mass/Vol] 169 mg/dL Normal [facility] Comment on above: Random Glucose Refer ence Range is dependent on time and content of last meal. Glucose of more than 200 mg/dL in a nonstressed, ambulatory subject supports the diagnosis of Diabetes Mellitus. Result Comment: [place] om Glucose Reference Range is dependent on time and content of last meal. Glucose of more than 200 mg/dL in a nonstressed, ambulatory subject supports the diagnosis of Diabetes Mellitus.PERFORMED BY:[address], [place] [phone] MEDICAL DIRECTORCLIFFORD LOBATO M.D. Performed By: #### G NELI ####Point of Care testing, Carbon dioxide, total [Moles /volume] in Serum or PlasmaOrdered By: João Powell on 03-06-2024 CO2 [Moles/Vol] 24.3 mmol/L Normal 21.0-31.0 [facility] Comment on above: Performed By: #### M G, PHOS, CMP, DIFF CBC ####[address] [address] [facility] CO2 [Moles/Vol] Carbon dioxide, tota l [Moles/volume] in Serum or Plasma 21.0-31.0 [facility] Chloride [Moles/volume] in S ilia or PlasmaOrdered By: João Powell on 03-06-2024 Chloride [Moles/Vol] 107 mmol/L Normal 98-107 [facility] Comment on above: Performed By: #### M Ines, PHOS, CMP, DIFF CBC ####[address] [address] [facility] Chloride [Moles/Vol] Chloride [Moles/vol ume] in Serum or Plasma 98-107 [facility] Comprehensive Metabolic Pane guy 03-06-2024 Albumin [Mass/Vol] 3.3 g/dL Low 3.5-5.7 [facility] Comment on above: Performed By: #### M Ines, PHOS, CMP, DIFF CBC ####[place] [address] [place] [address] [place] Creatinine Clr Calc Pharmacy 62.24 Normal [facility] Comment on above: Performed By: #### M G, PHOS, CMP, DIFF CBC ####[address] [address] [place] GFR/1.73 sq M.predicted MDRD (S/P/Bld) [Vol rate/Area] 57.276 mL/min/{1.73_m2} Normal [facility] Comment on above: Performed By: #### M G, PHOS, CMP, DIFF CBC ####[address] Creatinine [Mass/volume] in Serum or PlasmaOrdered By: João Powell on 03-06-2024 Creatinine [Mass/Vol] 1.42 mg/dL High 0.70-1.30 [facility] Comment on above: Performed By: #### M G, PHOS, CMP, DIFF CBC ####[address] Creatinine [Mass/Vol] Creatinine [Mass/v olume] in Serum or Plasma High 0.70-1.30 [facility] Dacrocytes [Presence] in Blo od by Light microscopyOrdered By: João Powell on 03-06-2024 Dacrocytes LM Ql (Bld) Teardrop cell detection [facility] Diff and CBCon 03-06-2024 Hypochromasia Slight Normal [facility] Comment on above: Performed By: #### M G, PHOS, CMP, DIFF CBC ####[address] Large Platelets Slight Normal [facility] Comment on above: Result Comment: PERF ORMED BY:[address] [place], [place] [phone] MEDICAL DIRECTORCLIFFORD LOBATO M.D. Performed By: #### M G, PHOS, CMP, DIFF CBC ####[place] [id number] [facility] Mean Corpuscular HGB Conc 32.0 g/dL Low 32.5-35.6 [facility] Comment on above: Performed By: #### M G, PHOS, CMP, DIFF CBC ####[address] Microcytosis Slight Normal [facility] Comment on above: Performed By: #### M G, PHOS, CMP, DIFF CBC ####[place] [id number] [facility] Platelet Estimate Normal Normal Normal [facility] Comment on above: Performed By: #### M G, PHOS, CMP, DIFF CBC ####[facility] [id number] [address] Polychromasia Slight Normal [facility] Comment on above: Performed By: #### M G, PHOS, CMP, DIFF CBC ####[facility] [id number] [place] [id number] [facility] Tear Drop Cells Slight Normal [facility] Comment on above: Performed By: #### M G, PHOS, CMP, DIFF CBC ####[facility] [place] [id number] [facility] Eosinophils Auto (Bld) [#/Vo l]Ordered By: João Powell on 03-06-2024 Eosinophils (Bld) [#/Vol] N/A [facility] Eosinophils (Bld) [#/Vol] Automated eosinophil count [facility] Eosinophils/100 WBC Auto (Bl d)Ordered By: João Powell on 03-06-2024 Eosinophils/100 WBC (Bld) N/A [facility] Eosinophils/100 WBC (Bld) Automated eosinophil % [facility] Eosinophils/100 WBC Manual c nt (Bld)Ordered By: João Powell on 03-06-2024 Eosinophils/100 WBC (Bld) Eosinophils/100 leukocytes in Blood by Manual count 1-3 [facility] Eosinophils/100 leukocytes i n Blood by Manual countOrdered By: João Powell on 03-06-2024 Eosinophils/100 WBC (Bld) 1 % Normal 1-3 [facility] Comment on above: Performed By: #### M G, PHOS, CMP, DIFF CBC ####[place] [address] [place] [id number] [facility] Erythrocyte distribution wid th Auto (RBC) [Ratio]Ordered By: João Powell on 03-06-2024 Erythrocyte distribution width (RBC) [Ratio] Erythrocyte distribution width [Ratio] by Automated count High 12.0-14.8 [facility] Erythrocyte distribution wid th [Ratio] by Automated countOrdered By: João Powell on 03-06-2024 Erythrocyte distribution width (RBC) [Ratio] 21.1 % High 12.0-14.8 [facility] Comment on above: Performed By: #### M G, PHOS, CMP, DIFF CBC ####[facility] [id number] [place] [address] [facility] Erythrocyte morphology findi ng [Identifier] in BloodOrdered By: João Powell on 03-06-2024 RBC morphology finding Nom (Bld) RBC morphology [facility] Erythrocytes [#/volume] in B lood by Automated countOrdered By: João Powell on 03-06-2024 RBC (Bld) [#/Vol] 3.68 10*6/uL Low 3.90-5.60 [facility] Comment on above: Performed By: #### M G, PHOS, CMP, DIFF CBC ####[facility] [id number] [place] [address] [facility] Globulin Calc (S) [Mass/Vol] Ordered By: João Powell on 03-06-2024 Globulin (S) [Mass/Vol] Serum globulin measurement by calculation (mass/volume) [facility] Glucose Glucometer (BldC) [M ass/Vol]Ordered By: João Powell on 03-06-2024 Glucose [Mass/Vol] Capillary blood gluc ose measurement by glucometer (mass/volume) [facility] Comment on above: Random Glucose Refer ence Range is dependent on time and content of last meal. Glucose of more than 200 mg/dL in a nonstressed, ambulatory subject supports the diagnosis of Diabetes Mellitus. Glucose Poct Glucometerson 1 Glucose [Mass/Vol] 128 mg/dL Normal [facility] Comment on above: Result Comment: [place] Glucose Reference Range is dependent on time and content of last meal. Glucose of more than 200 mg/dL in a nonstressed, ambulatory subject supports the diagnosis of Diabetes Mellitus.PERFORMED BY:[address] [place], [place] [phone] MEDICAL DIRECTORCLIFFORD LOBATO M.D. Performed By: #### G LULS ####Point of Care testing, Glucose [Mass/volume] in Ser um or PlasmaOrdered By: João Powell on 03-06-2024 Glucose [Mass/Vol] 99 mg/dL Normal 70-100 [facility] Comment on above: ADA recommended refe rence rangeRandom Glucose Reference Range is dependent on time and content of last meal. Glucose of more than 200 mg/dL in a nonstressed, ambulatory subject supports the diagnosis of Diabetes Mellitus. Result Comment: [place] Glucose Reference Range is dependent on time and content of last meal. Glucose of more than 200 mg/dL in a nonstressed, ambulatory subject supports the diagnosis of Diabetes Mellitus. ADA recommended reference range Performed By: #### M G, PHOS, CMP, DIFF CBC ####[place] [address] [place] [id number] [facility] Glucose [Mass/Vol] Glucose [Mass/volume ] in Serum or Plasma 70-100 [facility] Comment on above: ADA recommended refe rence rangeRandom Glucose Reference Range is dependent on time and content of last meal. Glucose of more than 200 mg/dL in a nonstressed, ambulatory subject supports the diagnosis of Diabetes Mellitus. Hematocrit Auto (Bld) [Volum e fraction]Ordered By: João Powell on 03-06-2024 Hematocrit (Bld) [Volume fraction] Hematocrit [Volume Fraction] of Blood by Automated count Low 38.8-50.0 [facility] Hematocrit [Volume Fraction] of Blood by Automated countOrdered By: João Powell on 03-06-2024 Hematocrit (Bld) [Volume fraction] 25.8 % Low 38.8-50.0 [facility] Comment on above: Performed By: #### M G, PHOS, CMP, DIFF CBC ####[place] [address] [place] [address] [facility] Hemoglobin [Mass/volume] in BloodOrdered By: João Powell on 03-06-2024 Hemoglobin (Bld) [Mass/Vol] 8.3 g/dL Low 13.0-17.0 [facility] Comment on above: Performed By: #### M G, PHOS, CMP, DIFF CBC ####[facility] [place] [id number] [facility] Hemoglobin (Bld) [Mass/Vol] Hemoglobin [Mass/volume] in Blood Low 13.0-17.0 [facility] Hypochromia LM Ql (Bld)Order ed By: João Powell on 03-06-2024 Hypochromia Ql (Bld) Slight [facility] Hypochromia Ql (Bld) Hypochromia [Presen ce] in Blood by Light microscopy [facility] Leukocytes [#/volume] correc jorge for nucleated erythrocytes in Blood by Automated counOrdered By: João Powell on 03-06-2024 WBC corrected for nucl RBC Auto (Bld) [#/Vol] 6.8 10*3/uL 4.1-10.5 [facility] WBC corrected for nucl RBC Auto (Bld) [#/Vol] Leukocytes [#/volume] corrected for nucleated erythrocytes in Blood by Automated coun 4.1-10.5 [facility] Leukocytes [#/volume] in Blo od by Automated countOrdered By: João Powell on 03-06-2024 WBC (Bld) [#/Vol] 6.8 10*3/uL Normal 4.1-10.5 [facility] Comment on above: Performed By: #### M G, PHOS, CMP, DIFF CBC ####[facility] [id number] [address] Lymphocytes Auto (Bld) [#/Vo l]Ordered By: João Powell on 03-06-2024 Lymphocytes (Bld) [#/Vol] N/A [facility] Lymphocytes (Bld) [#/Vol] Lymphocytes [#/volume] in Blood by Automated count [facility] Lymphocytes/100 WBC Auto (Bl d)Ordered By: João Powell on 03-06-2024 Lymphocytes/100 WBC (Bld) N/A [facility] Lymphocytes/100 WBC (Bld) Lymphocytes/100 leukocytes in Blood by Automated count [facility] Lymphocytes/100 WBC Manual c nt (Bld)Ordered By: João Powell on 03-06-2024 Lymphocytes/100 WBC (Bld) Lymphocytes/100 leukocytes in Blood by Manual count 18-42 [facility] Lymphocytes/100 leukocytes i n Blood by Manual countOrdered By: João Powell on 03-06-2024 Lymphocytes/100 WBC (Bld) 18 % Normal 18-42 [facility] Comment on above: Performed By: #### M G, PHOS, CMP, DIFF CBC ####[facility] [id number] [address] MCH Auto (RBC) [Entitic mass ]Ordered By: João Powell on 03-06-2024 MCH (RBC) [Entitic mass] MCH [Entitic mass] by Automated count Low 27.5-35.2 [facility] MCH [Entitic mass] by Automa jorge countOrdered By: João Powell on 03-06-2024 MCH (RBC) [Entitic mass] 22.4 pg Low 27.5-35.2 [facility] Comment on above: Performed By: #### M G, PHOS, CMP, DIFF CBC ####[facility] [id number] MCHC Auto (RBC) [Mass/Vol]Or dered By: João Powell on 03-06-2024 MCHC (RBC) [Mass/Vol] 32.0 g/dL Low 32.5-35.6 [facility] MCHC (RBC) [Mass/Vol] MCHC [Mass/volume] by Automated count Low 32.5-35.6 [facility] MCV Auto (RBC) [Entitic vol] Ordered By: João Powell on 03-06-2024 MCV (RBC) [Entitic vol] MCV [Entitic volume] by Automated count Low 83.5-101 [facility] MCV [Entitic volume] by Auto mated countOrdered By: João Powell on 03-06-2024 MCV (RBC) [Entitic vol] 70.2 fL Low 83.5-101 [facility] Comment on above: Performed By: #### M G, PHOS, CMP, DIFF CBC ####[address] Magnesium [Mass/volume] in S ilia or PlasmaOrdered By: João Powell on 03-06-2024 Magnesium [Mass/Vol] 1.6 mg/dL Low 1.9-2.7 [facility] Comment on above: Result Comment: PERF ORMED BY:[facility] [place] [phone] MEDICAL DIRECTORCLIFFORD LOBATO M.D. Performed By: #### M G, PHOS, CMP, DIFF CBC ####[facility] [place] [address] [facility] Magnesium [Mass/Vol] Magnesium [Mass/vol ume] in Serum or Plasma Low 1.9-2.7 [facility] Manual blood segmented neutr ophils/100 leukocytesOrdered By: João Powell on 03-06-2024 Segmented neutrophils/100 WBC (Bld) 72 % High 50-70 [facility] Comment on above: Performed By: #### M G, PHOS, CMP, DIFF CBC ####[facility] [place] [address] [facility] Microcytes LM Ql (Bld)Ordere d By: João Powell on 03-06-2024 Microcytes Ql (Bld) Slight [facility] Microcytes Ql (Bld) Microcytes [Presence ] in Blood by Light microscopy [facility] Monocytes Auto (Bld) [#/Vol] Ordered By: João Powell on 03-06-2024 Monocytes (Bld) [#/Vol] N/A [facility] Monocytes (Bld) [#/Vol] Automated blood monocyte count [facility] Monocytes/100 WBC Auto (Bld) Ordered By: João Powell on 03-06-2024 Monocytes/100 WBC (Bld) N/A [facility] Monocytes/100 WBC (Bld) Automated monocyte % [facility] Monocytes/100 WBC Manual cnt (Bld)Ordered By: João Powell on 03-06-2024 Monocytes/100 WBC (Bld) Monocytes/100 leukocytes in Blood by Manual count 2-11 [facility] Monocytes/100 leukocytes in Blood by Manual countOrdered By: João Powell on 03-06-2024 Monocytes/100 WBC (Bld) 8 % Normal 2-11 [facility] Comment on above: Performed By: #### M G, PHOS, CMP, DIFF CBC ####[facility] [id number] [place] [address] [facility] Neutrophils Auto (Bld) [#/Vo l]Ordered By: João Powell on 03-06-2024 Neutrophils (Bld) [#/Vol] N/A [facility] Neutrophils (Bld) [#/Vol] Neutrophils [#/volume] in Blood by Automated count [facility] Neutrophils/100 WBC Auto (Bl d)Ordered By: João Powell on 03-06-2024 Neutrophils/100 WBC (Bld) N/A [facility] Neutrophils/100 WBC (Bld) Automated neutrophil % [facility] No Panel InformationOrdered By: João Powell on 03-06-2024 Estimated GFR (CKD-EPI) 57.276 mL/Min [facility] Creatinine Clearance (Chem 62.24 [facility] 57.276 mL/Min [facility] 62.24 [facility] Nucleated erythrocytes [Pres ence] in Blood by Automated countOrdered By: João Powell on 03-06-2024 Nucleated RBC Auto Ql (Bld) N/A [facility] Nucleated RBC Auto Ql (Bld) Nucleated erythrocytes [Presence] in Blood by Automated count [facility] Phosphate [Mass/volume] in S ilia or PlasmaOrdered By: João Powell on 03-06-2024 Phosphate [Mass/Vol] 3.2 mg/dL Normal 2.5-4.5 [facility] Comment on above: Performed By: #### M G, PHOS, CMP, DIFF CBC ####[facility] [id number] [place] [address] [facility] Phosphate [Mass/Vol] Phosphate [Mass/vol ume] in Serum or Plasma 2.5-4.5 [facility] Platelet adequacy [Presence] in Blood by Light microscopyOrdered By: João Powell on 03-06-2024 Platelets LM Ql (Bld) Normal Normal Fir [facility] Platelets LM Ql (Bld) Platelet adequacy [Presence] in Blood by Light microscopy Normal [facility] Platelet mean volume Auto (B ld) [Entitic vol]Ordered By: João Powell on 03-06-2024 Platelet mean volume (Bld) [Entitic vol] Platelet mean volume [Entitic volume] in Blood by Automated count 6.6-10.1 [facility] Platelet mean volume [Entiti c volume] in Blood by Automated countOrdered By: João Powell on 03-06-2024 Platelet mean volume (Bld) [Entitic vol] 8.1 fL Normal 6.6-10.1 [facility] Comment on above: Performed By: #### M G, PHOS, CMP, DIFF CBC ####[facility] [id number] [address] Platelet morphology finding [Identifier] in BloodOrdered By: João Powell on 03-06-2024 Platelet morphology finding Nom (Bld) N/A [facility] Platelet morphology finding Nom (Bld) Platelet morphology finding [Identifier] in Blood [facility] Platelets Auto (Bld) [#/Vol] Ordered By: João Powell on 03-06-2024 Platelets (Bld) [#/Vol] Platelets [#/volume] in Blood by Automated count 150-450 [facility] Platelets Large [Presence] i n Blood by Light microscopyOrdered By: João Powell on 03-06-2024 Platelets Large LM Ql (Bld) Slight [facility] Platelets Large LM Ql (Bld) Platelets Large [Presence] in Blood by Light microscopy [facility] Platelets [#/volume] in Bloo d by Automated countOrdered By: João Powell on 03-06-2024 Platelets (Bld) [#/Vol] 325 10*3/uL Normal 150-450 [facility] Comment on above: Performed By: #### M G, PHOS, CMP, DIFF CBC ####[facility] [id number] [place] [id number] [facility] Polychromasia [Presence] in Blood by Light microscopyOrdered By: João Powell on 03-06-2024 Polychromasia LM Ql (Bld) Slight [facility] Polychromasia LM Ql (Bld) Polychromasia [Presence] in Blood by Light microscopy [facility] Potassium [Moles/volume] in Serum or PlasmaOrdered By: João Powell on 03-06-2024 Potassium [Moles/Vol] 4.2 mmol/L Normal 3.5-5.1 [facility] Comment on above: Performed By: #### M G, PHOS, CMP, DIFF CBC ####[place] [id number] Potassium [Moles/Vol] Potassium [Moles/v olume] in Serum or Plasma 3.5-5.1 [facility] Protein [Mass/volume] in Ser um or PlasmaOrdered By: João Powell on 03-06-2024 Protein [Mass/Vol] 6.1 g/dL Low 6.4-8.9 [facility] Comment on above: Performed By: #### M G, PHOS, CMP, DIFF CBC ####[place] [id number] Protein [Mass/Vol] Protein [Mass/volume ] in Serum or Plasma Low 6.4-8.9 [facility] RBC Auto (Bld) [#/Vol]Ordere d By: João Powell on 03-06-2024 RBC (Bld) [#/Vol] Erythrocytes [#/volu me] in Blood by Automated count Low 3.90-5.60 [facility] RBC morphologyOrdered By: Derek Powell on 03-06-2024 RBC morphology finding Nom (Bld) N/A [facility] Segmented neutrophils/100 WB C Manual cnt (Bld)Ordered By: João Powell on 03-06-2024 Segmented neutrophils/100 WBC (Bld) Manual blood segmented neutrophils/100 leukocytes High 50-70 [facility] Serum globulin measurement b y calculation (mass/volume)Ordered By: João Powell on 03-06-2024 Globulin (S) [Mass/Vol] 2.8 g/dL Normal [facility] Comment on above: Performed By: #### M G, PHOS, CMP, DIFF CBC ####[place] [address] Serum or plasma albumin/glob ulin mass ratioOrdered By: João Powell on 03-06-2024 Albumin/Globulin [Mass ratio] 1.2 {ratio} Normal [facility] Comment on above: Performed By: #### M G, PHOS, CMP, DIFF CBC ####[place] [id number] [facility] Albumin/Globulin [Mass ratio] Serum or plasma albumin/globulin mass ratio [facility] Serum or plasma anion gap de terminationOrdered By: João Powell on 03-06-2024 Anion gap [Moles/Vol] 9.9 mmol/L Normal 6.0-15.0 [facility] Comment on above: Performed By: #### M G, PHOS, CMP, DIFF CBC ####[address] Anion gap [Moles/Vol] Serum or plasma an ion gap determination 6.0-15.0 [facility] Sodium [Moles/volume] in Ser um or PlasmaOrdered By: João Powell on 03-06-2024 Sodium [Moles/Vol] 137 mmol/L Normal 136-145 [facility] Comment on above: Performed By: #### M G, PHOS, CMP, DIFF CBC ####[place] [id number] [facility] Sodium [Moles/Vol] Sodium [Moles/volume ] in Serum or Plasma 136-145 [facility] Teardrop cell detectionOrder ed By: João Powell on 03-06-2024 Dacrocytes LM Ql (Bld) [facility]light [facility] Urea nitrogen [Mass/volume] in Serum or PlasmaOrdered By: João Powell on 03-06-2024 Urea nitrogen [Mass/Vol] 17 mg/dL Normal 7-25 [facility] Comment on above: Performed By: #### M G, PHOS, CMP, DIFF CBC ####[place] [id number] [facility] Urea nitrogen [Mass/Vol] Urea nitrogen [Mass/volume] in Serum or Plasma 12-27 [facility] WBC Auto (Bld) [#/Vol]Ordere d By: João Powell on 03-06-2024 WBC (Bld) [#/Vol] Leukocytes [#/volume ] in Blood by Automated count 4.1-10.5 [facility] Complete Blood Count Auto Di ffon 03-05-2024 Basophils (Bld) [#/Vol] 0.1 10*3/uL Normal 0.0-0.2 [facility] Comment on above: Result Comment: PERF ORMED BY:[address] [place], [place] [phone] MEDICAL DIRECTORCLIFFORD LOBATO M.D. Performed By: #### P HOS, MG, CBC, CMP ####[address] Basophils/100 WBC (Bld) 1.1 % Normal . [facility] Comment on above: Performed By: #### P HOS, MG, CBC, CMP ####[address] Eosinophils (Bld) [#/Vol] 0.2 10*3/uL Normal 0.0-0.45 [facility] Comment on above: Performed By: #### P HOS, MG, CBC, CMP ####[place] [id number] [facility] Eosinophils/100 WBC (Bld) 2.8 % Normal . [facility] Comment on above: Performed By: #### P HOS, MG, CBC, CMP ####[place] [id number] [facility] Erythrocyte distribution width (RBC) [Ratio] 21.4 % High 12.0-14.8 [facility] Comment on above: Performed By: #### P HOS, MG, CBC, CMP ####[place] [id number] [facility] Hematocrit (Bld) [Volume fraction] 26.8 % Low 38.8-50.0 [facility] Comment on above: Performed By: #### P HOS, MG, CBC, CMP ####[address] Hemoglobin (Bld) [Mass/Vol] 8.6 g/dL Low 13.0-17.0 [facility] Comment on above: Performed By: #### P HOS, MG, CBC, CMP ####[address] Lymphocytes (Bld) [#/Vol] 1.3 10*3/uL Normal 1.00-4.8 [facility] Comment on above: Performed By: #### P HOS, MG, CBC, CMP ####[address] Lymphocytes/100 WBC (Bld) 16.1 % Normal . [facility] Comment on above: Performed By: #### P HOS, MG, CBC, CMP ####[address] MCH (RBC) [Entitic mass] 22.4 pg Low 27.5-35.2 [facility] Comment on above: Performed By: #### P HOS, MG, CBC, CMP ####[address] MCV (RBC) [Entitic vol] 70.1 fL Low 83.5-101 [facility] Comment on above: Performed By: #### P HOS, MG, CBC, CMP ####[address] Mean Corpuscular HGB Conc 31.9 g/dL Low 32.5-35.6 [facility] Comment on above: Performed By: #### P HOS, MG, CBC, CMP ####[address] Monocytes (Bld) [#/Vol] 1.0 10*3/uL High 0.0-0.8 [facility] Comment on above: Performed By: #### P HOS, MG, CBC, CMP ####[address] Monocytes/100 WBC (Bld) 12.4 % Normal . [facility] Comment on above: Performed By: #### P HOS, MG, CBC, CMP ####[address] Neutrophils (Bld) [#/Vol] 5.6 10*3/uL Normal 1.8-7.7 [facility] Comment on above: Performed By: #### P HOS, MG, CBC, CMP ####[address] Neutrophils/100 WBC (Bld) 67.6 % Normal . [facility] Comment on above: Performed By: #### P HOS, MG, CBC, CMP ####[address] NRBC% 0.0 /100{WBC} Normal 0-0.5 [facility] Comment on above: Performed By: #### P HOS, MG, CBC, CMP ####[address] Platelet mean volume (Bld) [Entitic vol] 7.9 fL Normal 6.6-10.1 [facility] Comment on above: Performed By: #### P HOS, MG, CBC, CMP ####[address] Platelets (Bld) [#/Vol] 361 10*3/uL Normal 150-450 [facility] Comment on above: Performed By: #### P HOS, MG, CBC, CMP ####[address] RBC (Bld) [#/Vol] 3.83 10*6/uL Low 3.90-5.60 [facility] Comment on above: Performed By: #### P HOS, MG, CBC, CMP ####[address] WBC (Bld) [#/Vol] 8.3 10*3/uL Normal 4.1-10.5 [facility] Comment on above: Performed By: #### P HOS, MG, CBC, CMP ####[address] Comprehensive Metabolic Pane guy 03-05-2024 Albumin [Mass/Vol] 3.3 g/dL Low 3.5-5.7 [facility] Comment on above: Performed By: #### P HOS, MG, CBC, CMP ####[address] Albumin/Globulin [Mass ratio] 1.2 {ratio} Normal [facility] Comment on above: Performed By: #### P HOS, MG, CBC, CMP ####[address] ALP [Catalytic activity/Vol] 98 U/L Normal 34-104 [facility] Comment on above: Performed By: #### P HOS, MG, CBC, CMP ####[address] ALT [Catalytic activity/Vol] 10 U/L Normal 7-52 [facility] Comment on above: Performed By: #### P HOS, MG, CBC, CMP ####[address] Anion gap [Moles/Vol] 9.9 mmol/L Normal 6.0-15.0 [facility] Comment on above: Performed By: #### P HOS, MG, CBC, CMP ####[address] AST [Catalytic activity/Vol] 14 U/L Normal 13-39 [facility] Comment on above: Performed By: #### P HOS, MG, CBC, CMP ####[address] Bilirubin [Mass/Vol] 0.3 mg/dL Normal 0.3-1.0 [facility] Comment on above: Performed By: #### P HOS, MG, CBC, CMP ####[address] [place] [address] [place] Calcium [Mass/Vol] 8.6 mg/dL Normal 8.6-10.3 [facility] Comment on above: Performed By: #### P HOS, MG, CBC, CMP ####[address] Chloride [Moles/Vol] 107 mmol/L Normal 98-107 [facility] Comment on above: Performed By: #### P HOS, MG, CBC, CMP ####[address] CO2 [Moles/Vol] 25.2 mmol/L Normal 21.0-31.0 [facility] Comment on above: Performed By: #### P HOS, MG, CBC, CMP ####[address] Creatinine [Mass/Vol] 1.49 mg/dL High 0.70-1.30 [facility] Comment on above: Performed By: #### P HOS, MG, CBC, CMP ####[address] Creatinine Clr Calc Pharmacy 59.31 Normal [facility] Comment on above: Performed By: #### P HOS, MG, CBC, CMP ####[address] GFR/1.73 sq M.predicted MDRD (S/P/Bld) [Vol rate/Area] 54.062 mL/min/{1.73_m2} Normal [facility] Comment on above: Performed By: #### P HOS, MG, CBC, CMP ####[address] Globulin (S) [Mass/Vol] 2.8 g/dL Normal [facility] Comment on above: Performed By: #### P HOS, MG, CBC, CMP ####[address] Glucose [Mass/Vol] 105 mg/dL High 70-100 [facility] Comment on above: Result Comment: Alee goel Glucose Reference Range is dependent on time and content of last meal. Glucose of more than 200 mg/dL in a nonstressed, ambulatory subject supports the diagnosis of Diabetes Mellitus. ADA recommended reference range Performed By: #### P HOS, MG, CBC, CMP ####[facility] [place] [address] [facility] Potassium [Moles/Vol] 4.1 mmol/L Normal 3.5-5.1 [facility] Comment on above: Performed By: #### P HOS, MG, CBC, CMP ####[address] [address] [facility] Protein [Mass/Vol] 6.1 g/dL Low 6.4-8.9 [facility] Comment on above: Performed By: #### P HOS, MG, CBC, CMP ####[address] [address] [facility] Sodium [Moles/Vol] 138 mmol/L Normal 136-145 [facility] Comment on above: Performed By: #### P HOS, MG, CBC, CMP ####[address] [address] [facility] Urea nitrogen [Mass/Vol] 24 mg/dL Normal 7-25 [facility] Comment on above: Performed By: #### P HOS, MG, CBC, CMP ####[address] [address] [facility] Glucose Poct Glucometerson 1 Glucose [Mass/Vol] 151 mg/dL Normal [facility] Comment on above: Result Comment: [facility] Glucose Reference Range is dependent on time and content of last meal. Glucose of more than 200 mg/dL in a nonstressed, ambulatory subject supports the diagnosis of Diabetes Mellitus.PERFORMED BY:[address] [place], [place] [phone] MEDICAL DIRECTORCLIFFORD LOBATO M.D. Performed By: #### G LULS ####Point of Care testing, Glucose [Mass/Vol] 106 mg/dL Normal [facility] Comment on above: Result Comment: [place] Glucose Reference Range is dependent on time and content of last meal. Glucose of more than 200 mg/dL in a nonstressed, ambulatory subject supports the diagnosis of Diabetes Mellitus.PERFORMED BY:[place] [address] [address] [place], [place] [phone] MEDICAL DIRECTORCLIFFORD LOBATO M.D. Performed By: #### G LULS ####Point of Care testing, Glucose [Mass/Vol] 132 mg/dL Normal [facility] Comment on above: Result Comment: [place] Glucose Reference Range is dependent on time and content of last meal. Glucose of more than 200 mg/dL in a nonstressed, ambulatory subject supports the diagnosis of Diabetes Mellitus.PERFORMED BY:[place] [address] [address] [place], [place] [phone] MEDICAL DIRECTORCLIFFORD LOBATO M.D. Performed By: #### G LULS ####Point of Care testing, Commemt1 Glu2: Cleaned Meter Normal [facility] Comment on above: Result Comment: PERF ORMED BY:[place] [address] [address] [place], [place] [phone] MEDICAL DIRECTORCLIFFORD LOBATO M.D. Performed By: #### G LULS ####Point of Care testing, Glucose [Mass/Vol] 151 mg/dL Normal [facility] Comment on above: Result Comment: [facility] Glucose Reference Range is dependent on time and content of last meal. Glucose of more than 200 mg/dL in a nonstressed, ambulatory subject supports the diagnosis of Diabetes Mellitus. Performed By: #### G LULS ####Point of Care testing, Magnesiumon 03-05-2024 Magnesium [Mass/Vol] 1.4 mg/dL Low 1.9-2.7 [facility] Comment on above: Result Comment: PERF ORMED BY:[place] [address] [address] [place], [place] [phone] MEDICAL DIRECTORCLIFFORD LOBATO M.D. Performed By: #### P HOS, MG, CBC, CMP ####[address] No Panel InformationOrdered By: João Powell on 03-05-2024 Bedside Glucose Comment Glu2: cleaned meter [facility] Glu2: cleaned meter [facility] Phosphoruson 03-05-2024 Phosphate [Mass/Vol] 3.1 mg/dL Normal 2.5-4.5 [facility] Comment on above: Performed By: #### P HOS, MG, CBC, CMP ####[place] [id number] [facility] US carotid doppler BIon 10-0 US carotid doppler BI Normal [facility] ABO/Rh Retypeon 03-04-2024 ABO/RH Recheck Result Positive Normal [facility] Comment on above: Result Comment: PERF ORMED BY:[address] [place], [place] [phone] MEDICAL DIRECTORCLIFFORD LOBATO M.D. Comprehensive Metabolic Pane guy 03-04-2024 Albumin [Mass/Vol] 3.3 g/dL Low 3.5-5.7 [facility] Comment on above: Performed By: #### M G, PHOS, SCAN CBC, CMP ####[address] Albumin/Globulin [Mass ratio] 1.1 {ratio} Normal [facility] Comment on above: Performed By: #### M G, PHOS, SCAN CBC, CMP ####[address] ALP [Catalytic activity/Vol] 105 U/L High 34-104 [facility] Comment on above: Performed By: #### M G, PHOS, SCAN CBC, CMP ####[address] ALT [Catalytic activity/Vol] 9 U/L Normal 7-52 [facility] Comment on above: Performed By: #### M G, PHOS, SCAN CBC, CMP ####[place] [id number] [facility] Anion gap [Moles/Vol] 11.1 mmol/L Normal 6.0-15.0 Th e [facility] Comment on above: Performed By: #### M G, PHOS, SCAN CBC, CMP ####[place] [id number] [facility] AST [Catalytic activity/Vol] 11 U/L Low 13-39 [facility] Comment on above: Performed By: #### M G, PHOS, SCAN CBC, CMP ####[address] Bilirubin [Mass/Vol] 0.2 mg/dL Low 0.3-1.0 [facility] Comment on above: Performed By: #### M G, PHOS, SCAN CBC, CMP ####[address] Calcium [Mass/Vol] 8.3 mg/dL Low 8.6-10.3 [facility] Comment on above: Performed By: #### M G, PHOS, SCAN CBC, CMP ####[place] [id number] [facility] Chloride [Moles/Vol] 104 mmol/L Normal 98-107 [facility] Comment on above: Performed By: #### M G, PHOS, SCAN CBC, CMP ####[place] [id number] [facility] CO2 [Moles/Vol] 27.6 mmol/L Normal 21.0-31.0 [facility] Comment on above: Performed By: #### M G, PHOS, SCAN CBC, CMP ####[place] [id number] [facility] Creatinine [Mass/Vol] 1.83 mg/dL High 0.70-1.30 [facility] Comment on above: Performed By: #### M G, PHOS, SCAN CBC, CMP ####[place] [id number] [facility] Creatinine Clr Calc Pharmacy 48.29 Normal [facility] Comment on above: Performed By: #### M G, PHOS, SCAN CBC, CMP ####[address] GFR/1.73 sq M.predicted MDRD (S/P/Bld) [Vol rate/Area] 42.245 mL/min/{1.73_m2} Normal [facility] Comment on above: Performed By: #### M G, PHOS, SCAN CBC, CMP ####[address] Globulin (S) [Mass/Vol] 2.9 g/dL Normal [facility] Comment on above: Performed By: #### M G, PHOS, SCAN CBC, CMP ####[address] Glucose [Mass/Vol] 150 mg/dL High 70-100 [facility] Comment on above: Result Comment: [facility] Glucose Reference Range is dependent on time and content of last meal. Glucose of more than 200 mg/dL in a nonstressed, ambulatory subject supports the diagnosis of Diabetes Mellitus. ADA recommended reference range Performed By: #### M G, PHOS, SCAN CBC, CMP ####[address] Potassium [Moles/Vol] 3.7 mmol/L Normal 3.5-5.1 [facility] Comment on above: Performed By: #### M G, PHOS, SCAN CBC, CMP ####[address] Protein [Mass/Vol] 6.2 g/dL Low 6.4-8.9 [facility] Comment on above: Performed By: #### M G, PHOS, SCAN CBC, CMP ####[address] Sodium [Moles/Vol] 139 mmol/L Normal 136-145 [facility] Comment on above: Performed By: #### M G, PHOS, SCAN CBC, CMP ####[address] Urea nitrogen [Mass/Vol] 36 mg/dL High 7-25 [facility] Comment on above: Performed By: #### M G, PHOS, SCAN CBC, CMP ####[facility] [id number] [place] [address] [facility] ECH echo transthoracicon ECH echo transthoracic Normal Th e [facility] Ferritinon 03-04-2024 Ferritin Normal 23.9-336.2 [facility] Comment on above: Order Comment: Comme nt add Result Comment: Spec imen hemolyzed, redraw requested Performed By: #### T SH3, LILA, FE and TIBC, [id number] ####[facility] [id number] [place] [address] [facility] Ferritin [Mass/volume] in Se rum or PlasmaOrdered By: João Powell on 03-04-2024 Ferritin [Mass/Vol] 7.7 ng/mL Low 23.9-336.2 [facility] Ferritin [Mass/Vol] Ferritin [Mass/volum e] in Serum or Plasma Low 23.9-336.2 [facility] Folate [Mass/volume] in Seru m or PlasmaOrdered By: João Powell on 03-04-2024 Folate [Mass/Vol] 7.8 ng/mL >5.9 [facility] Comment on above: Folate reference ran ge: >5.9 ng/mlThe WHO technical consultation on folate and vitamin [id number] has determined that folate concentrations lessthan 4 ng/ml are considered deficient. Folate [Mass/Vol] Folate [Mass/volume] in Serum or Plasma >5.9 [facility] Comment on above: Folate reference ran ge: >5.9 ng/mlThe WHO technical consultation on folate and vitamin [id number] has determined that folate concentrations lessthan 4 ng/ml are considered deficient. Glucose Poct Glucometerson 0 03-04-2024 Commemt1 Glu2: Cleaned Meter Normal [facility] Comment on above: Result Comment: PERF ORMED BY:[address] [place], [place] [phone] MEDICAL DIRECTORCLIFFORD LOBATO M.D. Performed By: #### G LULS ####Point of Care testing, Glucose [Mass/Vol] 213 mg/dL Normal [facility] Comment on above: Result Comment: [place] Glucose Reference Range is dependent on time and content of last meal. Glucose of more than 200 mg/dL in a nonstressed, ambulatory subject supports the diagnosis of Diabetes Mellitus. Performed By: #### G LULS ####Point of Care testing, Glucose [Mass/Vol] 279 mg/dL Normal [facility] Comment on above: Result Comment: [place] Glucose Reference Range is dependent on time and content of last meal. Glucose of more than 200 mg/dL in a nonstressed, ambulatory subject supports the diagnosis of Diabetes Mellitus.PERFORMED BY:[place] [address] [address] [place], [place] [phone] MEDICAL DIRECTORCLIFFORD LOBATO M.D. Performed By: #### G LULS ####Point of Care testing, Glucose [Mass/Vol] 236 mg/dL Normal [facility] Comment on above: Result Comment: [place] Glucose Reference Range is dependent on time and content of last meal. Glucose of more than 200 mg/dL in a nonstressed, ambulatory subject supports the diagnosis of Diabetes Mellitus.PERFORMED BY:[place] [address] [address] [place], [place] [phone] MEDICAL DIRECTORCLIFFORD LOBATO M.D. Performed By: #### G LULS ####Point of Care testing, Glucose [Mass/Vol] 242 mg/dL Normal [facility] Comment on above: Result Comment: [place] om Glucose Reference Range is dependent on time and content of last meal. Glucose of more than 200 mg/dL in a nonstressed, ambulatory subject supports the diagnosis of Diabetes Mellitus.PERFORMED BY:[place] [address] [address] [place], [place] [phone] MEDICAL DIRECTORCLIFFORD LOBATO M.D. Performed By: #### G LULS ####Point of Care testing, Iron [Mass/volume] in Serum or PlasmaOrdered By: João Powell on 03-04-2024 Iron [Mass/Vol] 13 ug/dL Low 50-212 [facility] Comment on above: Order Comment: Comme nt add Performed By: #### T SH3, LILA, FE and TIBC, [id number] ####[place] [address] [place] [address] [facility] Iron [Mass/Vol] Iron [Mass/volume] i n Serum or Plasma Low 50-212 [facility] Iron and TIBC Profileon 02-05 % Iron Saturation 3.2 % Low 20-50 [facility] Comment on above: Order Comment: Comme nt add Performed By: #### T SH3, LILA, FE and TIBC, [id number] ####[place] [address] [place] [id number] [facility] Total Iron Binding Capacity 403 ug/dL Normal 255-450 [facility] Comment on above: Order Comment: Comme nt add Performed By: #### T SH3, LILA, FE and TIBC, [id number] ####[place] [id number] [facility] Iron binding capacity [Mass/ volume] in Serum or PlasmaOrdered By: João Powell on 03-04-2024 Iron binding capacity [Mass/Vol] 403 ug/dL 255-450 [facility] Iron saturation [Mass Fracti on] in Serum or PlasmaOrdered By: Mohamad Andre on 03-04-2024 Iron saturation [Mass fraction] 3.2 % Low 20-50 [facility] LeukoReduced RBCon LeukoReduced RBC TRANSFUSED 03/04/24 1657 Normal [facility] MR angio MR brain w/oon 02-05 MR angio MR brain w/o Normal [facility] Magnesiumon 03-04-2024 Magnesium [Mass/Vol] 1.3 mg/dL Low 1.9-2.7 [facility] Comment on above: Result Comment: PERF ORMED BY:[address] [place], [place] [phone] MEDICAL DIRECTORJIANLAN SUN M.D. Performed By: #### M G, PHOS, SCAN CBC, CMP ####[address] Ovalocyte detectionOrdered B y: João Powell on 03-04-2024 Ovalocytes LM Ql (Bld) [facility] Ovalocytes [Presence] in Blo od by Light microscopyOrdered By: João Powell on 03-04-2024 Ovalocytes LM Ql (Bld) Ovalocyte detection [facility] Phosphoruson 03-04-2024 Phosphate [Mass/Vol] 3.5 mg/dL Normal 2.5-4.5 [facility] Comment on above: Performed By: #### M G, PHOS, SCAN CBC, CMP ####[address] Redraw Ferritinon 03-04-2024 Redraw Ferritin 7.7 ng/mL Low 23.9-336.2 The [facility] Comment on above: Performed By: #### T SH3, REDRAW B12, REDRAW LILA, REDRAW FOLATE ####[address] Redraw Folateon 03-04-2024 Redraw Folate 7.8 ng/mL Normal >5.9 [facility] Comment on above: Result Comment: Aure te reference range: >5.9 ng/ml The WHO technical consultation on folate and vitamin b12 deficiencies has determined that folate concentrations less than 4 ng/ml are considered deficient. Performed By: #### T SH3, REDRAW B12, REDRAW LILA, REDRAW FOLATE ####[address] Scan and CBCon 03-04-2024 Anisocytosis Ql (Bld) Moderate Normal [facility] Comment on above: Performed By: #### M G, PHOS, SCAN CBC, CMP ####[address] Basophils (Bld) [#/Vol] 0.1 10*3/uL Normal 0.0-0.2 [facility] Comment on above: Performed By: #### M G, PHOS, SCAN CBC, CMP ####[address] Basophils/100 WBC (Bld) 2.4 % Normal . [facility] Comment on above: Performed By: #### M G, PHOS, SCAN CBC, CMP ####[address] Eosinophils (Bld) [#/Vol] 0.2 10*3/uL Normal 0.0-0.45 [facility] Comment on above: Performed By: #### M G, PHOS, SCAN CBC, CMP ####[address] Eosinophils/100 WBC (Bld) 3.6 % Normal . [facility] Comment on above: Performed By: #### M G, PHOS, SCAN CBC, CMP ####[address] Erythrocyte distribution width (RBC) [Ratio] 20.8 % High 12.0-14.8 [facility] Comment on above: Performed By: #### M G, PHOS, SCAN CBC, CMP ####[address] Hematocrit (Bld) [Volume fraction] 23.7 % Low 38.8-50.0 [facility] Comment on above: Performed By: #### M G, PHOS, SCAN CBC, CMP ####[address] Hemoglobin (Bld) [Mass/Vol] 7.4 g/dL Low 13.0-17.0 [facility] Comment on above: Performed By: #### M G, PHOS, SCAN CBC, CMP ####[address] Hypochromasia Slight Normal [facility] Comment on above: Performed By: #### M G, PHOS, SCAN CBC, CMP ####[address] Lymphocytes (Bld) [#/Vol] 1.3 10*3/uL Normal 1.00-4.8 [facility] Comment on above: Performed By: #### M G, PHOS, SCAN CBC, CMP ####[address] Lymphocytes/100 WBC (Bld) 22.8 % Normal . [facility] Comment on above: Performed By: #### M G, PHOS, SCAN CBC, CMP ####[address] MCH (RBC) [Entitic mass] 21.8 pg Low 27.5-35.2 [facility] Comment on above: Performed By: #### M G, PHOS, SCAN CBC, CMP ####[address] MCV (RBC) [Entitic vol] 69.5 fL Low 83.5-101 [facility] Comment on above: Performed By: #### M G, PHOS, SCAN CBC, CMP ####[address] Mean Corpuscular HGB Conc 31.3 g/dL Low 32.5-35.6 [facility] Comment on above: Performed By: #### M G, PHOS, SCAN CBC, CMP ####[address] Monocytes (Bld) [#/Vol] 0.9 10*3/uL High 0.0-0.8 [facility] Comment on above: Performed By: #### M G, PHOS, SCAN CBC, CMP ####[address] Monocytes/100 WBC (Bld) 16.7 % Normal . [facility] Comment on above: Performed By: #### M G, PHOS, SCAN CBC, CMP ####[address] Neutrophils (Bld) [#/Vol] 3.0 10*3/uL Normal 1.8-7.7 [facility] Comment on above: Performed By: #### M G, PHOS, SCAN CBC, CMP ####[place] [id number] [facility] [facility] Neutrophils/100 WBC (Bld) 54.5 % Normal . [facility] Comment on above: Performed By: #### M G, PHOS, SCAN CBC, CMP ####[place] [id number] [facility] NRBC% 0.3 /100{WBC} Normal 0-0.5 The [facility] Comment on above: Performed By: #### M G, PHOS, SCAN CBC, CMP ####[place] [id number] [facility] Ovalocytes Slight Normal [facility] Comment on above: Performed By: #### M G, PHOS, SCAN CBC, CMP ####[place] [id number] [facility] Platelet Estimate Normal Normal Normal The [facility] Comment on above: Performed By: #### M G, PHOS, SCAN CBC, CMP ####[place] [id number] [facility] Platelet mean volume (Bld) [Entitic vol] 8.2 fL Normal 6.6-10.1 The [facility] Comment on above: Performed By: #### M G, PHOS, SCAN CBC, CMP ####[place] [phone] [facility] Platelet Morphology Normal Normal Normal The [facility] Comment on above: Result Comment: PERF ORMED BY:[address] [place], [place] [phone] MEDICAL DIRECTORCLIFFORD LOBATO M.D. Performed By: #### M G, PHOS, SCAN CBC, CMP ####[address] [address] [facility] Platelets (Bld) [#/Vol] 394 10*3/uL Normal 150-450 [facility] Comment on above: Performed By: #### M G, PHOS, SCAN CBC, CMP ####[place] [address] [place] [address] [facility] Polychromasia Slight Normal [facility] Comment on above: Performed By: #### M G, PHOS, SCAN CBC, CMP ####[facility] [place] [address] [facility] RBC (Bld) [#/Vol] 3.41 10*6/uL Low 3.90-5.60 The [facility] Comment on above: Performed By: #### M G, PHOS, SCAN CBC, CMP ####[place] [address] [place] [id number] [facility] WBC (Bld) [#/Vol] 5.5 10*3/uL Normal 4.1-10.5 [facility] Comment on above: Performed By: #### M G, PHOS, SCAN CBC, CMP ####[address] Serum or plasma iron binding capacity measurement (mass/volume)Ordered By: João Powell on 03-04-2024 Iron binding capacity [Mass/Vol] Iron binding capacity [Mass/volume] in Serum or Plasma 255-450 [facility] Serum or plasma iron saturat ion measurement (mass fraction)Ordered By: João Powell on 03-04-2024 Iron saturation [Mass fraction] Iron saturation [Mass Fraction] in Serum or Plasma Low 20-50 [facility] Thyroid Stimulating Hormoneo n 03-04-2024 Thyroid Stimulating Hormone Normal 0.45-5.33 [facility] Comment on above: Order Comment: Comme nt add Result Comment: Spec imen hemolyzed, redraw requestedPERFORMED BY:[address] [place], [place] [phone] MEDICAL DIRECTORCLIFFORD LOBATO M.D. Performed By: #### T SH3, LILA, FE and TIBC, [id number] ####[place] [phone] [facility] Thyrotropin [Units/volume] i n Serum or PlasmaOrdered By: João Powell on 03-04-2024 TSH Qn 2.90 m[IU]/L Normal 0.45-5.33 [facility] Comment on above: Result Comment: PERF ORMED BY:[place] [address] [address] [place], [place] [phone] MEDICAL DIRECTORCLIFFORD LOBATO M.D. Performed By: #### T SH3, REDRAW B12, REDRAW LILA, REDRAW FOLATE ####[address] [address] [facility] TSH Qn Thyrotropin [Units/volume] in Serum or Plasma 0.45-5.33 [facility] Transferrin [Mass/volume] in Serum or PlasmaOrdered By: João Powell on 03-04-2024 Transferrin [Mass/Vol] 288 mg/dL Normal 203-362 [facility] Comment on above: Order Comment: Comme nt add Performed By: #### T SH3, LILA, FE and TIBC, [id number] ####[address] [address] [facility] Transferrin [Mass/Vol] Transferrin [Mass /volume] in Serum or Plasma 203-362 [facility] Type and Screenon 03-04-2024 ABO and Rh group Nom (Bld) Blood group O Rh(D) positive Normal [facility] Comment on above: Order Comment: Numbe r of units to transfuse now? 1 Result Comment: PERF ORMED BY:[place] [address] [address] [place], [place] [phone] MEDICAL DIRECTORCLIFFORD LOBATO M.D. Vit. B12/Folate Profileon Folate Normal >5.9 [facility] Comment on above: Order Comment: Comme nt add Result Comment: Spec imen hemolyzed, redraw requested Folate reference range: >5.9 ng/ml The WHO technical consultation on folate and vitamin b12 deficiencies has determined that folate concentrations less than 4 ng/ml are considered deficient.PERFORMED BY:[place] [address] [address] [place], [place] [phone] MEDICAL DIRECTORCLIFFORD LOBATO M.D. Performed By: #### T SH3, LILA, FE and TIBC, [id number] ####[place] [address] Vitamin B12 Normal 180-4 [facility] Comment on above: Order Comment: Comme nt add Result Comment: Spec imen hemolyzed, redraw requested Performed By: #### T SH3, LILA, FE and TIBC, [id number] ####[address] [address] [facility] Vitamin B12 ser/plasOrdered By: João Powell on 03-04-2024 Cobalamin (Vitamin B12) [Mass/Vol] 170 pg/mL Low 180- [facility] Comment on above: Performed By: #### T SH3, REDRAW B12, REDRAW LILA, REDRAW FOLATE ####[address] Cobalamin (Vitamin B12) [Mass/Vol] Vitamin B12 ser/plas Low 180 [facility] XR knee RT 2Von 03-04-2024 XR knee RT 2V Normal [facility] Anisocytosis [Presence] in B lood by Light microscopyOrdered By: Kait Dan on 03-03-2024 Anisocytosis Ql (Bld) Marked Normal [facility] Comment on above: Performed By: #### H S TROP, SCAN CBC, BNP, BMP ####[address] Appearance of UrineOrdered B y: Kait Dan on 03-03-2024 Appearance (U) Urine appearance Clear [facility] Automated basophil %Ordered By: Kait Dan on 03-03-2024 Basophils/100 WBC (Bld) 1.7 % Normal . [facility] Comment on above: Performed By: #### H S TROP, SCAN CBC, BNP, BMP ####[place] [phone] [facility] Automated basophil countOrde red By: Kait Dan on 03-03-2024 Basophils (Bld) [#/Vol] 0.1 10*3/uL Normal 0.0-0.2 [facility] Comment on above: Performed By: #### H S TROP, SCAN CBC, BNP, BMP ####[address] Automated blood monocyte cou ntOrdered By: Kait aDn on 03-03-2024 Monocytes (Bld) [#/Vol] 0.8 10*3/uL Normal 0.0-0.8 [facility] Comment on above: Performed By: #### H S TROP, SCAN CBC, BNP, BMP ####[address] Automated eosinophil %Ordere d By: Kait Dan on 03-03-2024 Eosinophils/100 WBC (Bld) 3.2 % Normal . [facility] Comment on above: Performed By: #### H S TROP, SCAN CBC, BNP, BMP ####[address] Automated eosinophil countOr dered By: Kait Dan on 03-03-2024 Eosinophils (Bld) [#/Vol] 0.2 10*3/uL Normal 0.0-0.45 [facility] Comment on above: Performed By: #### H S TROP, SCAN CBC, BNP, BMP ####[address] Automated monocyte %Ordered By: Kait Dan on 03-03-2024 Monocytes/100 WBC (Bld) 11.3 % Normal . [facility] Comment on above: Performed By: #### H S TROP, SCAN CBC, BNP, BMP ####[address] Automated neutrophil %Ordere d By: Kait Dan on 03-03-2024 Neutrophils/100 WBC (Bld) 65.6 % Normal . [facility] Comment on above: Performed By: #### H S TROP, SCAN CBC, BNP, BMP ####[address] BNP ser/plasOrdered By: Delfina Dan on 03-03-2024 Natriuretic peptide B (Bld) [Mass/Vol] 23.0 pg/mL Normal 5-100 [facility] Comment on above: Result Comment: PERF ORMED BY:[address] [place], [place] [phone] MEDICAL DIRECTORCLIFFORD LOBATO M.D. Performed By: #### H S TROP, SCAN CBC, BNP, BMP ####[place] [address] [place] [address] [facility] Basic Metabolic Panelon 02-04 Creatinine Clr Calc Pharmacy 44.86 Normal [facility] Comment on above: Result Comment: PERF ORMED BY:[address] [place], [place] [phone] MEDICAL DIRECTORCLIFFORD LOBATO M.D. Performed By: #### H S TROP, SCAN CBC, BNP, BMP ####[place] [phone] [facility] GFR/1.73 sq M.predicted MDRD (S/P/Bld) [Vol rate/Area] 38.669 mL/min/{1.73_m2} Normal [facility] Comment on above: Performed By: #### H S TROP, SCAN CBC, BNP, BMP ####[place] [address] [place] [phone] [facility] Bilirubin Test strip Ql (U)O rdered By: Kait Dan on 03-03-2024 Bilirubin Ql (U) Negative Negative [facility] Bilirubin Ql (U) Bilirubin.total [Presence] in Urine by Test strip Negative [facility] COVID CepheidOrdered By: Jeremi Dan on 03-03-2024 SARS-CoV-2 (COVID-19) Ab IA Ql Negative Negative [facility] Comment on above: This is a duplicate Cepheid Xpert Xpress CoV-2/Flu/RSV Plus RNA by RT-PCR result to be used for statistical tracking purpose only. SARS-CoV-2 (COVID-19) RNA NELLY+probe Ql (Unsp spec) Normal [facility] Comment on above: Performed By: #### C EPHEID NEG, UA, COVID19 FLU RSV ####[facility] [address] [place] [id number] [facility] SARS-CoV-2 (COVID-19) RNA NELLY+probe Ql (Unsp spec) Negative Normal Negative [facility] Comment on above: Result Comment: This is a duplicate Cepheid Xpert Xpress CoV-2/Flu/RSV Plus RNA by RT-PCR result to be used for statistical tracking purpose only.PERFORMED BY:[place] [address] [address] [place], [place] [phone] MEDICAL DIRECTORCLIFFORD LOBATO M.D. Performed By: #### C EPHEID NEG, UA, COVID19 FLU RSV ####[facility] [id number] [place] [phone] [facility] COVID Cepheid NegativeOrdere d By: Kait Dan on 03-03-2024 SARS-CoV-2 (COVID-19) Ab IA Ql COVID Cepheid Negative [facility] Comment on above: This is a duplicate Cepheid Xpert Xpress CoV-2/Flu/RSV Plus RNA by RT-PCR result to be used for statistical tracking purpose only. CT abdomen pelvis w conon CT abdomen pelvis w con Normal [facility] CT head/brain wo conon 03-03 CT head/brain wo con Normal [facility] Calcium [Mass/volume] in Ser um or PlasmaOrdered By: Kait Dan on 03-03-2024 Calcium [Mass/Vol] 8.6 mg/dL Normal 8.6-10.3 [facility] Comment on above: Performed By: #### H S TROP, SCAN CBC, BNP, BMP ####[facility] [address] [place] [phone] [facility] Capillary blood glucose ashley urement by glucometer (mass/volume)Ordered By: Kait Dan on 03-03-2024 Glucose [Mass/Vol] 167 mg/dL Normal [facility] Comment on above: Random Glucose Refer ence Range is dependent on time and content of last meal. Glucose of more than 200 mg/dL in a nonstressed, ambulatory subject supports the diagnosis of Diabetes Mellitus. Result Comment: [facility] Glucose Reference Range is dependent on time and content of last meal. Glucose of more than 200 mg/dL in a nonstressed, ambulatory subject supports the diagnosis of Diabetes Mellitus.PERFORMED BY:[id number] [place] [address] [place], [place] [phone] MEDICAL DIRECTORCLIFFORD LOBATO M.D. Performed By: #### G LULS ####Point of Care testing, Carbon dioxide, total [Moles /volume] in Serum or PlasmaOrdered By: Kait Dan on 03-03-2024 CO2 [Moles/Vol] 24.3 mmol/L Normal 21.0-31.0 [facility] Comment on above: Performed By: #### H S TROP, SCAN CBC, BNP, BMP ####[facility] [id number] [place] [id number] [place] Chloride [Moles/volume] in S ilia or PlasmaOrdered By: Kait Dan on 03-03-2024 Chloride [Moles/Vol] 103 mmol/L Normal 98-107 [facility] Comment on above: Performed By: #### H S TROP, SCAN CBC, BNP, BMP ####[facility] Stt[address] [place] [id number] [facility] Color Auto (U)Ordered By: Martha Dan on 03-03-2024 Color (U) Color of Urine by Auto Yellow [facility] Color of Urine by AutoOrdere d By: Kait Dan on 03-03-2024 Color (U) Colorless Normal Yellow [facility] Comment on above: Order Comment: Name Collection Type:: Clean-Voided Midstream Performed By: #### C EPHEID NEG, UA, COVID19 FLU RSV ####[facility] [id number] [place] [phone] [place] Creatinine [Mass/volume] in Serum or PlasmaOrdered By: Kait Dan on 03-03-2024 Creatinine [Mass/Vol] 1.97 mg/dL High 0.70-1.30 [facility] Comment on above: Performed By: #### H S TROP, SCAN CBC, BNP, BMP ####[facility] [place] [address] [facility] ECG 12 lead ECGon 03-03-2024 ECG 12 lead ECG Normal [facility] Erythrocyte distribution wid th [Ratio] by Automated countOrdered By: Kait Dan on 03-03-2024 Erythrocyte distribution width (RBC) [Ratio] 20.9 % High 12.0-14.8 [facility] Comment on above: Performed By: #### H S TROP, SCAN CBC, BNP, BMP ####[place] [address] [place] [phone] [facility] Erythrocytes [#/volume] in B lood by Automated countOrdered By: Kait Dan on 03-03-2024 RBC (Bld) [#/Vol] 3.58 10*6/uL Low 3.90-5.60 [facility] Comment on above: Performed By: #### H S TROP, SCAN CBC, BNP, BMP ####[place] [address] [place] [address] [facility] Glucose Poct Glucometerson 0 03-03-2024 Commemt1 Glu2: Cleaned Meter Normal [facility] Comment on above: Result Comment: PERF ORMED BY:[address] [place]Mary[place], [place] [phone] MEDICAL DIRECTORCLIFFORD LOBATO M.D. Performed By: #### G LULS ####Point of Care testing, Glucose [Mass/Vol] 204 mg/dL Normal [facility] Comment on above: Result Comment: [place] [facility] Glucose Reference Range is dependent on time and content of last meal. Glucose of more than 200 mg/dL in a nonstressed, ambulatory subject supports the diagnosis of Diabetes Mellitus. Performed By: #### G LULS ####Point of Care testing, Glucose [Mass/volume] in Ser um or PlasmaOrdered By: Kait Dan on 03-03-2024 Glucose [Mass/Vol] 142 mg/dL High 70-100 [facility] Comment on above: ADA recommended refe rence rangeRandom Glucose Reference Range is dependent on time and content of last meal. Glucose of more than 200 mg/dL in a nonstressed, ambulatory subject supports the diagnosis of Diabetes Mellitus. Result Comment: [place] Glucose Reference Range is dependent on time and content of last meal. Glucose of more than 200 mg/dL in a nonstressed, ambulatory subject supports the diagnosis of Diabetes Mellitus. ADA recommended reference range Performed By: #### H S TROP, SCAN CBC, BNP, BMP ####[facility] [place] [phone] [facility] Glucose [Mass/volume] in Uri ne by Test stripOrdered By: Kait Dan on 03-03-2024 Glucose Test strip (U) [Mass/Vol] 500 mg/dL High Normal [facility] Glucose Test strip (U) [Mass/Vol] Glucose [Mass/volume] in Urine by Test strip [facility] Hematocrit [Volume Fraction] of Blood by Automated countOrdered By: Kait Dan on 03-03-2024 Hematocrit (Bld) [Volume fraction] 24.7 % Low 38.8-50.0 [facility] Comment on above: Performed By: #### H S TROP, SCAN CBC, BNP, BMP ####[place] [address] [place] [id number] [facility] Hemoglobin Test strip Ql (U) Ordered By: Kait Dan on 03-03-2024 Hemoglobin Ql (U) Negative Negative [facility] Hemoglobin Ql (U) Hemoglobin [Presence ] in Urine by Test strip Negative [facility] Hemoglobin [Mass/volume] in BloodOrdered By: Kait Dan on 03-03-2024 Hemoglobin (Bld) [Mass/Vol] 7.8 g/dL Low 13.0-17.0 [facility] Comment on above: Performed By: #### H S TROP, SCAN CBC, BNP, BMP ####[place] [phone] [facility] Hypochromia LM Ql (Bld)Order ed By: Kait Dan on 03-03-2024 Hypochromia Ql (Bld) Moderate [facility] Ketones Test strip Ql (U)Ord ered By: Kait Dan on 03-03-2024 Ketones Ql (U) Ketones [Presence] i n Urine by Test strip Negative [facility] Ketones [Presence] in Urine by Test stripOrdered By: Kait Dan on 03-03-2024 Ketones Ql (U) Negative Normal Negative [facility] Comment on above: Order Comment: Name Collection Type:: Clean-Voided Midstream Performed By: #### C EPHEID NEG, UA, COVID19 FLU RSV ####[place] [address] [place] [phone] [facility] Leukocyte esterase [Presence ] in Urine by Test stripOrdered By: Kait Dan on 03-03-2024 Leukocyte esterase Test strip Ql (U) Negative Normal Negative [facility] Comment on above: Order Comment: Name Collection Type:: Clean-Voided Midstream Performed By: #### C EPHEID NEG, UA, COVID19 FLU RSV ####[place] [address] [place] [id number] [facility] Leukocyte esterase Test strip Ql (U) Leukocyte esterase [Presence] in Urine by Test strip Negative [facility] Leukocytes [#/volume] correc jorge for nucleated erythrocytes in Blood by Automated counOrdered By: Kait Dan on 03-03-2024 WBC corrected for nucl RBC Auto (Bld) [#/Vol] 7.2 10*3/uL 4.1-10.5 [facility] Leukocytes [#/volume] in Blo od by Automated countOrdered By: Kiat Dan on 03-03-2024 WBC (Bld) [#/Vol] 7.2 10*3/uL Normal 4.1-10.5 [facility] Comment on above: Performed By: #### H S TROP, SCAN CBC, BNP, BMP ####[place] [id number] [place] Lymphocytes [#/volume] in Bl ood by Automated countOrdered By: Kait Dan on 03-03-2024 Lymphocytes (Bld) [#/Vol] 1.3 10*3/uL Normal 1.00-4.8 [facility] Comment on above: Performed By: #### H S TROP, SCAN CBC, BNP, BMP ####[place] [id number] [place] Lymphocytes/100 leukocytes i n Blood by Automated countOrdered By: Kait Dan on 03-03-2024 Lymphocytes/100 WBC (Bld) 18.2 % Normal . [facility] Comment on above: Performed By: #### H S TROP, SCAN CBC, BNP, BMP ####[facility] [id number] MCH [Entitic mass] by Automa jorge countOrdered By: Kait Dan on 03-03-2024 MCH (RBC) [Entitic mass] 21.8 pg Low 27.5-35.2 [facility] Comment on above: Performed By: #### H S TROP, SCAN CBC, BNP, BMP ####[facility] [id number] [address] MCHC Auto (RBC) [Mass/Vol]Or dered By: Kait Dan on 03-03-2024 MCHC (RBC) [Mass/Vol] 31.6 g/dL Low 32.5-35.6 [facility] MCV [Entitic volume] by Auto mated countOrdered By: Kait Dan on 03-03-2024 MCV (RBC) [Entitic vol] 69.0 fL Low 83.5-101 [facility] Comment on above: Performed By: #### H S TROP, SCAN CBC, BNP, BMP ####[address] Microcytes LM Ql (Bld)Ordere d By: Kait Dan on 03-03-2024 Microcytes Ql (Bld) Marked [facility] Monocyte distribution width [Entitic volume] in Blood by AutomatedOrdered By: Kait Dan on 03-03-2024 Monocyte distribution width Auto (Bld) [Entitic vol] 17.33 % 0.00-20.00 [facility] Monocyte distribution width Auto (Bld) [Entitic vol] Monocyte distribution width [Entitic volume] in Blood by Automated 0.00-20.00 [facility] Natriuretic peptide B [Mass/ Vol]Ordered By: Kait Dan on 03-03-2024 Natriuretic peptide B (Bld) [Mass/Vol] BNP ser/plas 5-100 [facility] Neutrophils [#/volume] in Bl ood by Automated countOrdered By: Kait Dan on 03-03-2024 Neutrophils (Bld) [#/Vol] 4.7 10*3/uL Normal 1.8-7.7 [facility] Comment on above: Performed By: #### H S TROP, SCAN CBC, BNP, BMP ####[facility] [id number] [place] [id number] [facility] Nitrite Test strip Ql (U)Ord ered By: Kait Dan on 03-03-2024 Nitrite Ql (U) Negative Negative [facility] Nitrite Ql (U) Nitrite [Presence] i n Urine by Test strip Negative [facility] No Panel InformationOrdered By: Kait Dan on 03-03-2024 Estimated GFR (CKD-EPI) 38.669 mL/Min [facility] Creatinine Clearance (Chem 44.86 [facility] Nucleated erythrocytes [Pres ence] in Blood by Automated countOrdered By: Kait Dan on 03-03-2024 Nucleated RBC Auto Ql (Bld) 0.2 /100{WBC} 0-0.5 [facility] Platelet adequacy [Presence] in Blood by Light microscopyOrdered By: Kait Dan on 03-03-2024 Platelets LM Ql (Bld) Increased Normal [facility] Platelet mean volume [Entiti c volume] in Blood by Automated countOrdered By: Kait Dan on 03-03-2024 Platelet mean volume (Bld) [Entitic vol] 7.8 fL Normal 6.6-10.1 [facility] Comment on above: Performed By: #### H S TROP, SCAN CBC, BNP, BMP ####[facility] [id number] Platelet morphology finding [Identifier] in BloodOrdered By: Kait Dan on 03-03-2024 Platelet morphology finding Nom (Bld) Normal Normal [facility] Platelets [#/volume] in Bloo d by Automated countOrdered By: Kait Dan on 03-03-2024 Platelets (Bld) [#/Vol] 452 10*3/uL High 150-450 [facility] Comment on above: Performed By: #### H S TROP, SCAN CBC, BNP, BMP ####[facility] Polychromasia [Presence] in Blood by Light microscopyOrdered By: Kait Dan on 03-03-2024 Polychromasia LM Ql (Bld) Slight [facility] Potassium [Moles/volume] in Serum or PlasmaOrdered By: Kait Dan on 03-03-2024 Potassium [Moles/Vol] 3.9 mmol/L Normal 3.5-5.1 [facility] Comment on above: Performed By: #### H S TROP, SCAN CBC, BNP, BMP ####[place] [address] Protein Test strip (U) [Mass /Vol]Ordered By: Kait Dan on 03-03-2024 Protein (U) [Mass/Vol] Negative Negative [facility] Protein (U) [Mass/Vol] Protein [Mass/vol ume] in Urine by Test strip Negative [facility] RBC morphologyOrdered By: As darci Dan on 03-03-2024 RBC morphology finding Nom (Bld) N/A [facility] Respiratory specimen influen za A virus, influenza B virus, respiratory syncytical virOrdered By: Kait Dan on 03-03-2024 SARS-CoV-2 (COVID-19) RNA NELLY+probe Ql (Unsp spec) Respiratory specimen influenza A virus, influenza B virus, respiratory syncytical vir [facility] Scan and CBCon 03-03-2024 Hypochromasia Moderate Normal [facility] Comment on above: Performed By: #### H S TROP, SCAN CBC, BNP, BMP ####[place] [address] [place] [id number] [facility] Mean Corpuscular HGB Conc 31.6 g/dL Low 32.5-35.6 [facility] Comment on above: Performed By: #### H S TROP, SCAN CBC, BNP, BMP ####[place] [address] [place] [id number] [facility] Microcytosis Marked Normal [facility] Comment on above: Performed By: #### H S TROP, SCAN CBC, BNP, BMP ####[place] [address] [place] [id number] [facility] Monocytes/100 WBC (Bld) 17.33 % Normal 0.00-20.00 [facility] Comment on above: Performed By: #### H S TROP, SCAN CBC, BNP, BMP ####[place] [id number] [facility] NRBC% 0.2 /100{WBC} Normal 0-0.5 [facility] Comment on above: Performed By: #### H S TROP, SCAN CBC, BNP, BMP ####[place] [id number] [facility] Platelet Estimate Increased Normal Normal [facility] Comment on above: Performed By: #### H S TROP, SCAN CBC, BNP, BMP ####[place] [id number] [facility] Platelet Morphology Normal Normal Normal [facility] Comment on above: Result Comment: PERF ORMED BY:[address] [place], [place] [phone] MEDICAL DIRECTORCLIFFORD LOBATO M.D. Performed By: #### H S TROP, SCAN CBC, BNP, BMP ####[address] Polychromasia Slight Normal [facility] Comment on above: Performed By: #### H S TROP, SCAN CBC, BNP, BMP ####[place] [id number] [facility] Serum or plasma anion gap de terminationOrdered By: Kait Dan on 03-03-2024 Anion gap [Moles/Vol] 14.6 mmol/L Normal 6.0-15.0 [facility] Comment on above: Performed By: #### H S TROP, SCAN CBC, BNP, BMP ####[place] [id number] [facility] Sodium [Moles/volume] in Ser um or PlasmaOrdered By: Kait Dan on 03-03-2024 Sodium [Moles/Vol] 138 mmol/L Normal 136-145 [facility] Comment on above: Performed By: #### H S TROP, SCAN CBC, BNP, BMP ####[place] [address] [place] [address] [facility] Specific gravity Test strip (U) [Rel density]Ordered By: Kait Dan on 03-03-2024 Specific gravity (U) [Rel density] 1.009 1.001-1.03 0 [facility] Specific gravity (U) [Rel density] Specific gravity of Urine by Test strip 1.001-1.03 0 [facility] Troponin I High Sensitivityo n 03-03-2024 Troponin I High Sensitivity 4.5 pg/mL Normal 0.0-20.0 [facility] Comment on above: Result Comment: PERF ORMED BY:[address] [place]Mary[place], [place] [phone] MEDICAL DIRECTORCLIFFORD LOBATO M.D. Performed By: #### H S TROP ####[place] [id number] [facility] Troponin I High Sensitivity 9.2 pg/mL Normal 0.0-20.0 [facility] Comment on above: Result Comment: PERF ORMED BY:[place] [address] [address] [place], [place] [phone] MEDICAL DIRECTORCLIFFORD LOBATO M.D. Performed By: #### H S TROP, SCAN CBC, BNP, BMP ####[address] [address] [facility] Troponin I.cardiac [Mass/vol ume] in Serum or Plasma by Detection limit <= 0.01 ng/Ordered By: Kait Dan on 03-03-2024 Troponin I.cardiac DL <= 0.01 ng/mL [Mass/Vol] 4.5 pg/mL 0.0-20.0 [facility] Troponin I.cardiac DL <= 0.01 ng/mL [Mass/Vol] Troponin I.cardiac [Mass/volume] in Serum or Plasma by Detection limit <= 0.01 ng/ 0.0-20.0 [facility] Urea nitrogen [Mass/volume] in Serum or PlasmaOrdered By: Kait Dan on 03-03-2024 Urea nitrogen [Mass/Vol] 46 mg/dL High 7-25 [facility] Comment on above: Performed By: #### H S TROP, SCAN CBC, BNP, BMP ####[address] [address] [facility] Urinalysison 03-03-2024 Bilirubin,Urine Negative Normal Negative [facility] Comment on above: Order Comment: Name Collection Type:: Clean-Voided Midstream Performed By: #### C EPHEID NEG, UA, COVID19 FLU RSV ####[address] [address] [facility] Glucose Ql (U) 500 mg/dL High Normal [facility] Comment on above: Order Comment: Name Collection Type:: Clean-Voided Midstream Performed By: #### C EPHEID NEG, UA, COVID19 FLU RSV ####[place] [id number] [facility] Nitrite,Urine Negative Normal Negative [facility] Comment on above: Order Comment: Name Collection Type:: Clean-Voided Midstream Performed By: #### C EPHEID NEG, UA, COVID19 FLU RSV ####[place] [id number] [facility] Occult Blood,Urine Negative Normal Negative [facility] Comment on above: Order Comment: Name Collection Type:: Clean-Voided Midstream Result Comment: PERF ORMED BY:[address] [place], [place] [phone] MEDICAL DIRECTORCLIFFORD LOBATO M.D. Performed By: #### C EPHEID NEG, UA, COVID19 FLU RSV ####[address] [address] [facility] Protein,Urine Negative Normal Negative [facility] Comment on above: Order Comment: Name Collection Type:: Clean-Voided Midstream Performed By: #### C EPHEID NEG, UA, COVID19 FLU RSV ####[address] [address] [facility] Specificy [place],Urine 1.009 Normal 1.001-1.03 0 [facility] Comment on above: Order Comment: Name Collection Type:: Clean-Voided Midstream Performed By: #### C EPHEID NEG, UA, COVID19 FLU RSV ####[facility] [place] [address] [facility] Urobilinogen,Urine Normal Normal Normal [facility] Comment on above: Order Comment: Name Collection Type:: Clean-Voided Midstream Performed By: #### C EPHEID NEG, UA, COVID19 FLU RSV ####[place] [address] [place] [id number] [facility] Urine appearanceOrdered By: Kait Dan on 03-03-2024 Appearance (U) Clear Normal Clear [facility] Comment on above: Order Comment: Name Collection Type:: Clean-Voided Midstream Performed By: #### C EPHEID NEG, UA, COVID19 FLU RSV ####[place] [address] Urobilinogen Test strip (U) [Mass/Vol]Ordered By: Kait Dan on 03-03-2024 Urobilinogen (U) [Mass/Vol] Normal mg/dL Normal [facility] Urobilinogen (U) [Mass/Vol] Urobilinogen [Mass/volume] in Urine by Test strip Normal [facility] XR chest 2V*on 03-03-2024 XR chest 2V* Normal [facility] pH Test strip (U)Ordered By: Kait Dan on 03-03-2024 pH (U) pH of Urine by Test strip 5.0-9.0 [facility] pH of Urine by Test stripOrd ered By: Kait Dan on 03-03-2024 pH (U) 5.0 [pH] Normal 5.0-9.0 [facility] Comment on above: Order Comment: Name Collection Type:: Clean-Voided Midstream Performed By: #### C EPHEID NEG, UA, COVID19 FLU RSV ####[place] [address] Coding Queryon 02-22-2024 Coding Query Coding [...] MYRA PICKARD SR; Caller Number: H Normal [facility] General Message Officeon General Message Office General Message O ffice --- --- --- --- --- --- --- --- --- From: Eric Lee To: MYRA PICKARD SR Sent: 02/22/24 02:30:41 AM EDT Subject: Discharge Summary Ready to View A summary regarding your recent visit is available in the Documents section of your health record. Normal [facility] Surgical Pathology Reporton 02-22-2024 Surgical Pathology Report [facility] [address] [place] [address]- Surgical Pathology Report Collected Date/Time: 02/12/2024 14:13 EDT Pathologist: Blair Blood MD Received Date/Time: 02/13/2024 07:26 EDT Simon HERRERA, Mike Montes MD, Mike Cain Surgical Pathology Report - 02/22/2024 14:10 EDT - Auth (Verified) Final Diagnosis RIGHT LOWER EXTREMITY, [id number] AMPUTATION: - Gangrenous ulcer and artery atherosclerosis. - Seborrheic keratosis. - No evidence of osteomyelitis. - Resection margin uninvolved by acute inflammation. (Electronic Signature) Yan. Caitie MD 02/22/2024 14:10 Clinical Information Pre-Op Diagnosis: Atherosclerosis of [place] arteries of extremities with gangrene, right leg. [...] pigmented lesion measuring 0.2 x 0.2 cm. Marketing Ambassador sections are submitted in a total of ten cassettes: 1-5: Skin and soft tissue ulcerated areas 6-7: Artery 8: Bone near ulceration after decalcification 9-10: Bone from surgical margin after decalcification (DC) Gross of specimen was discussed with Dr. Dunne in Frozen Section Room at 1400. (DC) DC:MCA Microscopic Description Microscopic examination performed unless gross only specified. Normal [facility] Comment on above: Performed By: #### 4 [id number] #### [facility] [address] [place] [address] BMPon 02-21-2024 Anion gap [Moles/Vol] 8 mmol/L Normal 6-16 [facility] Comment on above: Performed By: #### 2 [id number] #### [facility] [address] [place] [address] Calcium [Mass/Vol] 8.6 mg/dL Low 8.9-11.1 [facility] Comment on above: Performed By: #### 2 [id number] #### [facility] [address] [place] [address] Chloride [Moles/Vol] 100 mmol/L Low 101-111 [facility] Comment on above: Performed By: #### 2 [id number] #### [facility] [address] [place] [address] CO2 [Moles/Vol] 30 mmol/L Normal 21-31 [facility] Comment on above: Performed By: #### 2 [id number] #### [facility] [address] [place] [address] Creatinine [Mass/Vol] 1.8 mg/dL High 0.5-1.3 [facility] Comment on above: Performed By: #### 2 [id number] #### [facility] [address] [place] [address] Glucose [Mass/Vol] 169 mg/dL Normal 55-199 [facility] Comment on above: Performed By: #### 2 [id number] #### [facility] [address] [place] [address] Potassium [Moles/Vol] 3.7 mmol/L Normal 3.5-5.3 [facility] Comment on above: Performed By: #### 2 [id number] #### [facility] [address] [place] [address] Sodium [Moles/Vol] 134 mmol/L Low 135-145 [facility] Comment on above: Performed By: #### 2 [id number] #### [facility] [address] [place] [address] Urea nitrogen [Mass/Vol] 26 mg/dL High 5-21 [facility] Comment on above: Performed By: #### 2 [id number] #### [facility] [address] [place] [address] Urea nitrogen/Creatinine [Mass ratio] 14 No Units Normal 10-20 [facility] Comment on above: Performed By: #### 2 [id number] #### [facility] [address] [place] [address] CBC w/ Auto Diffon 4 Basophils/100 WBC (Bld) 0.7 % Normal 0.0-2.0 [facility] Comment on above: Performed By: #### 2 [id number] #### [facility] [address] [place] [address] Basophils/Leukocytes Auto (Bld) [Pure # fraction] 0.1 E9/L Normal 0.0-0.2 [facility] Comment on above: Performed By: #### 2 [id number] #### [facility] [address] [place] [address] Eosinophils (Bld) [#/Vol] 0.4 E9/L Normal 0.0-0.5 [facility] Comment on above: Performed By: #### 2 694251 #### [facility] [address] [place] [address] Eosinophils/100 WBC (Bld) 3.6 % Normal 0.0-8.0 [facility] Comment on above: Performed By: #### 2 500331 #### [facility] [address] [place] [address] Erythrocyte distribution width (RBC) [Ratio] 21.4 % High 10.9-14.2 [facility] Comment on above: Performed By: #### 2 403563 #### [facility] [address] [place] [address] Hematocrit (Bld) [Volume fraction] 25.6 % Low 37.7-49.0 [facility] Comment on above: Performed By: #### 2 492039 #### [facility] [address] [place] [address] Hemoglobin (Bld) [Mass/Vol] 8.1 g/dL Low 13.5-17.5 [facility] Comment on above: Performed By: #### 2 489897 #### [facility] [address] [place] [address] Hypochromia Auto Ql (Bld) PRESENT Invalid Interpretation Code [facility] Comment on above: Performed By: #### 2 [id number] #### [facility] [address] [place] [address] Lymphocytes (Bld) [#/Vol] 1.5 E9/L Normal 1.0-4.0 [facility] Comment on above: Performed By: #### 2 [id number] #### [facility] [address] [place] [address] Lymphocytes/100 WBC (Bld) 12.4 % Low 14.0-50.0 [facility] Comment on above: Performed By: #### 2 [id number] #### [facility] [address] [place] [address] MCH (RBC) [Entitic mass] 22.3 pg Low 27.0-34.0 [facility] Comment on above: Performed By: #### 2 474776 #### [facility] [address] [place] [address] MCHC (RBC) [Mass/Vol] 31.5 g/dL Normal 31.4-36.0 [facility] Comment on above: Performed By: #### 2 [id number] #### [facility] [address] [place] [address] MCV (RBC) [Entitic vol] 70.7 fL Low 80.0-100.0 [facility] Comment on above: Performed By: #### 2 585262 #### [facility] [address] [place] [address] Microcytes Ql (Bld) PRESENT Invalid Interpretation Code [facility] Comment on above: Performed By: #### 2 [id number] #### [facility] [address] [place] [address] Monocytes (Bld) [#/Vol] 1.1 E9/L High 0.2-1.0 [facility] Comment on above: Performed By: #### 2 069404 #### [facility] [address] [place] [address] Neutrophils (Bld) [#/Vol] 9.3 E9/L High 2.0-7.5 [facility] Comment on above: Performed By: #### 2 638625 #### [facility] [address] [place] [address] Neutrophils/100 WBC (Bld) 74.6 % Normal 36.0-75.0 [facility] Comment on above: Performed By: #### 2 776195 #### [facility] [address] [place] [address] Platelet mean volume (Bld) [Entitic vol] 8.6 fL Normal 6.4-10.8 [facility] Comment on above: Performed By: #### 2 [id number] #### [facility] [address] [place] [address] Platelets (Bld) [#/Vol] 481.0 E9/L Normal 150.0-500. 0 [facility] Comment on above: Performed By: #### 2 [id number] #### [facility] [address] [place] [address] Platelets Large LM Ql (Bld) PRESENT Invalid Interpretation Code [facility] Comment on above: Performed By: #### 2 [id number] #### [facility] [address] [place] [address] RBC (Bld) [#/Vol] 3.6 E12/L Low 4.3-5.9 [facility] Comment on above: Performed By: #### 2 [id number] #### [facility] [address] [place] [address] RBC size Nom (Bld) NORMAL Invalid Interpretation Code [facility] Comment on above: Performed By: #### 2 [id number] #### [facility] [address] [place] [address] WBC corrected for nucl RBC Auto (Bld) [#/Vol] 12.5 E9/L High 4.0-11.0 [facility] Comment on above: Performed By: #### 2 240553 #### [facility] [address] [place] [address] CHEMISTRYOrdered By: Lab ROP User on 02-21-2024 Glucose [Mass/Vol] 227 mg/dL High 55 - 99 mg/dL [facility] Subsection Comment on above: Result Comment: Deon hathaway RN/ POC Device SN [id number] 1 Invalid Interpretation Code [facility] POC Subsection POC User ID [id number] 1 Invalid Interpretation Code [facility] POC Subsection POC Username BRAULIO ABRAHANTERESOKATHERIN Invalid Interpretation Code [facility] POC Subsection Glucose [Mass/Vol] 177 mg/dL High 55 - 99 mg/dL [facility] POC Subsection Comment on above: Result Comment: Deon hathaway RN/MD POC Device SN [id number] 1 Invalid Interpretation Code [facility] POC Subsection POC User ID [id number] 1 Invalid Interpretation Code [facility] POC Subsection POC Username BRAULIOJOEYvonneAMNAJESSE Invalid Interpretation Code [facility] POC Subsection Glucose [Mass/Vol] 158 mg/dL High 55 - 99 mg/dL [facility] POC Subsection POC Device SN [id number] 1 Invalid Interpretation Code [facility] POC Subsection POC User ID [id number] 1 Invalid Interpretation Code [facility] POC Subsection POC Username FADI LIND Invalid Interpretation Code [facility] POC Subsection CHEMISTRYOrdered By: SYSTEM SYSTEM on [...] 02-03 Glucose [Mass/Vol] 227 mg/dL High 55-99 [facility] Comment on above: Result Comment: Deon hathaway RN/ Performed By: #### 2 [id number] #### [facility] [address] [place] [address] Glucose [Mass/Vol] 177 mg/dL High 55-99 [facility] Comment on above: Result Comment: Deon ETIENNE Performed By: #### 2 [id number] #### [facility] [address] [place] [address] Glucose [Mass/Vol] 158 mg/dL High 55-99 [facility] Comment on above: Performed By: #### 2 [id number] #### [facility] [address] [place] [address] Discharge Note-Nursingon Discharge Note-Nursing Discharge Note-Paula barclaying MATTEO CHRISTIAN, MYRA Daniel :1965 Visit Date:02/12/2024 [...] TERESA LYNCH DO, FAM When: Where: [address] [place] [address]- [facility] Within 2 weeks Comments: Call for followup appointment Where: [address] [place] [address]- Medications What How Much When Instructions Next [...] 0.5 Tablets (more content not included)... Normal [facility] HEMATOLOGYOrdered By: SYSTEM SYSTEM on 02-21-2024 Basophils/100 [...] 02-21-2024 Inpatient Clinical Summary Inpatient Clinical Summary [place] [address] Clinical Summary Person Information: Name: MYRA PICKARD SR Age: 58 Years : 1965 Sex: Male PCP: TERESA LYNCH DO Marital Status: Race: White Ethnicity: Non- or Language: Belarusian Visit Id: Visit Reason: I70.261 Speciality: Acuity: Enc Type: Inpatient Med Service: Medical Arrival: 02/12/2024 11:13:26 Discharge: Dispo Type: Address: [address] [place] [id number] Provider Notes: Diagnosis: 1:Hx of right BKA; [...] up: With: Address: When: TERESA LYNCH DO, [address] [address] With: Address: When: Mike Montes MD[address] [address] Within 2 weeks Comments: Call for followup appointment Patient Education Information: Living With an Amputation Normal [facility] Inpatient Patient Summaryon 02-21-2024 Inpatient Patient Summary Inpatient Patient Summary [address] [place] [address] Patient Discharge Instructions PERSON INFORMATION Name: [...] up: With: Address: When: TERESA LYNCH DO, [address] [address] With: Address: When: Mike Montes MD [address] [place] [address] Within 2 weeks Comments: Call for followup [...] Tablets By M (more content not included)... [facility] Interdisciplinary Note - Jorge e Manageron 02-21-2024 Interdisciplinary Note - Manifold Builder Interdisciplinary Note - Manifold Builder Precert for [place] has been obtained. Patient informed and his was also contacted. Both remain in agreement with the discharge plan. Patient's will arrive to [facility] by 1700 this evening and will transport patient to [place] once he has finished his dinner. Hospitalist, RN, and CRM aware. [facility] Comment on above: Result Comment: Elec tronically Signed By: Evens SÁNCHEZ, Fely Martin\.br\Date and Time Signed: 02/21/24 18:08 EDT Interdisciplinary Note - Soc ial Workeron 02-21-2024 Interdisciplinary Note - [employer] Racker Interdisciplinary Note - [employer]acker Precert for [place] has been obtained. Patient informed and his was also contacted. Both remain in agreement with the discharge plan. Patient's will arrive to [facility] by 1700 this evening and will transport patient to [place] once he has finished his dinner. Hospitalist, RN, and CRM aware. [facility] Interdisciplinary Note - [employer]acker Interdisciplinary Note - [employer] Racker Precert for [place] has been obtained. Patient informed and his was also contacted. Both remain in agreement with the discharge plan. Patient's will arrive to [facility] by 1700 this evening and will transport patient to [place] once he has finished his dinner. Hospitalist, RN, and CRM aware. [facility] eGFRon 02-21-2024 eGFR 43 mL/min/1.73 m2 Low >=59 [facility] Comment on above: Order Comment: Order added by Discern Expert. Performed By: #### 1 [id number] #### [facility] [address] [place] [address] BMPon 02-20-2024 Anion gap [Moles/Vol] 15 mmol/L Normal 6-16 [facility] Comment on above: Performed By: #### 2 [id number] #### [facility] [address] [place] [address] Calcium [Mass/Vol] 9.4 mg/dL Normal 8.9-11.1 [facility] Comment on above: Performed By: #### 2 [id number] #### [facility] [address] [place] [address] Chloride [Moles/Vol] 97 mmol/L Low 101-111 [facility] Comment on above: Performed By: #### 2 [id number] #### [facility] [address] [place] [address] CO2 [Moles/Vol] 28 mmol/L Normal 21-31 [facility] Comment on above: Performed By: #### 2 [id number] #### [facility] [address] [place] [address] Creatinine [Mass/Vol] 1.8 mg/dL High 0.5-1.3 [facility] Comment on above: Performed By: #### 2 094202 #### [facility] [address] [place] [address] Glucose [Mass/Vol] 259 mg/dL High 55-199 [facility] Comment on above: Performed By: #### 2 935293 #### [facility] [address] [place] [address] Potassium [Moles/Vol] 3.9 mmol/L Normal 3.5-5.3 [facility] Comment on above: Performed By: #### 2 059108 #### [facility] [address] [place] [address] Sodium [Moles/Vol] 136 mmol/L Normal 135-145 [facility] Comment on above: Performed By: #### 2 434151 #### [facility] [address] [place] [address] Urea nitrogen [Mass/Vol] 27 mg/dL High 5-21 [facility] Comment on above: Performed By: #### 2 364002 #### [facility] [address] [place] [address] Urea nitrogen/Creatinine [Mass ratio] 15 No Units Normal 10-20 [facility] Comment on above: Performed By: #### 2 [id number] #### [facility] [address] [place] [address] CBC w/ Auto Diffon 4 Basophils/100 WBC (Bld) 0.7 % Normal 0.0-2.0 [facility] Comment on above: Performed By: #### 2 [id number] #### [facility] [address] [place] [address] Basophils/Leukocytes Auto (Bld) [Pure # fraction] 0.1 E9/L Normal 0.0-0.2 [facility] Comment on above: Performed By: #### 2 [id number] #### [facility] [address] [place] [address] Eosinophils (Bld) [#/Vol] 0.2 E9/L Normal 0.0-0.5 [facility] Comment on above: Performed By: #### 2 633101 #### [facility] [address] [place] [address] Eosinophils/100 WBC (Bld) 1.6 % Normal 0.0-8.0 [facility] Comment on above: Performed By: #### 2 [id number] #### [facility] [address] [place] [address] Erythrocyte distribution width (RBC) [Ratio] 21.6 % High 10.9-14.2 [facility] Comment on above: Performed By: #### 2 388140 #### [facility] [address] [place] [address] Hematocrit (Bld) [Volume fraction] 27.5 % Low 37.7-49.0 [facility] Comment on above: Performed By: #### 2 [id number] #### [facility] [address] [place] [address] Hemoglobin (Bld) [Mass/Vol] 8.9 g/dL Low 13.5-17.5 [facility] Comment on above: Performed By: #### 2 [id number] #### [facility] [address] [place] [address] Hypochromia Auto Ql (Bld) PRESENT Invalid Interpretation Code [facility] Comment on above: Performed By: #### 2 [id number] #### [facility] [address] [place] [address] Lymphocytes (Bld) [#/Vol] 1.3 E9/L Normal 1.0-4.0 [facility] Comment on above: Performed By: #### 2 [id number] #### [facility] [address] [place] [address] Lymphocytes/100 WBC (Bld) 8.3 % Low 14.0-50.0 [facility] Comment on above: Performed By: #### 2 [id number] #### [facility] [address] [place] [address] MCH (RBC) [Entitic mass] 22.9 pg Low 27.0-34.0 [facility] Comment on above: Performed By: #### 2 [id number] #### [facility] [address] [place] [address] MCHC (RBC) [Mass/Vol] 32.2 g/dL Normal 31.4-36.0 [facility] Comment on above: Performed By: #### 2 [id number] #### [facility] [address] [place] [address] MCV (RBC) [Entitic vol] 70.9 fL Low 80.0-100.0 [facility] Comment on above: Performed By: #### 2 [id number] #### [facility] [address] [place] [address] Microcytes Ql (Bld) PRESENT Invalid Interpretation Code [facility] Comment on above: Performed By: #### 2 [id number] #### [facility] [address] [place] [address] Monocytes (Bld) [#/Vol] 1.2 E9/L High 0.2-1.0 [facility] Comment on above: Performed By: #### 2 [id number] #### [facility] [address] [place] [address] Neutrophils (Bld) [#/Vol] 12.7 E9/L High 2.0-7.5 [facility] Comment on above: Performed By: #### 2 [id number] #### [facility] [address] [place] [address] Neutrophils/100 WBC (Bld) 81.5 % High 36.0-75.0 [facility] Comment on above: Performed By: #### 2 [id number] #### [facility] [address] [place] [address] Platelet 521.0 E9/L High 150.0-500. 0 [facility] Comment on above: Performed By: #### 2 [id number] #### [facility] [address] [place] [address] Platelet mean volume (Bld) [Entitic vol] 8.6 fL Normal 6.4-10.8 [facility] Comment on above: Performed By: #### 2 [id number] #### [facility] [address] [place] [address] RBC (Bld) [#/Vol] 3.9 E12/L Low 4.3-5.9 [facility] Comment on above: Performed By: #### 2 [id number] #### [facility] [address] [place] [address] RBC size Nom (Bld) SEE MORPHOLOGY Invalid Interpretation Code [facility] Comment on above: Performed By: #### 2 [id number] #### [facility] [address] [place] [address] WBC corrected for nucl RBC Auto (Bld) [#/Vol] 15.6 E9/L High 4.0-11.0 [facility] Comment on above: Performed By: #### 2 [id number] #### [facility] [address] [place] [address] CHEMISTRYOrdered By: SYSTEM SYSTEM on 02-20-2024 Anion [...] 02-03 Glucose [Mass/Vol] 192 mg/dL High 55-99 [facility] Comment on above: Result Comment: Deon ETIENNE Performed By: #### 2 [id number] #### [facility] [address] [place] [address] Glucose [Mass/Vol] 180 mg/dL High 55-99 [facility] Comment on above: Result Comment: Deon ETIENNE Performed By: #### 2 [id number] #### [facility] [address] [place] [address] Glucose [Mass/Vol] 104 mg/dL High 55-99 [facility] Comment on above: Result Comment: Deon hathaway RN/ Performed By: #### 2 [id number] #### [facility] [address] [place] [address] Glucose [Mass/Vol] 165 mg/dL High 55-99 [facility] Comment on above: Result Comment: Deon ETIENNE Performed By: #### 2 [id number] #### [facility] [address] [place] [address] Glucose [Mass/Vol] 224 mg/dL High 55-99 [facility] Comment on above: Result Comment: Deon ETIENNE Performed By: #### 2 [id number] #### [facility] [address] [place] [address] Coding Queryon 02-20-2024 Coding Query Coding Query [...] desired or expected. Thank you!eliz [id number] Normal [facility] HEMATOLOGYOrdered By: SYSTEM SYSTEM on 02-20-2024 Basophils/100 [...] Jorge e Manageron 02-20-2024 Interdisciplinary Note - Manifold Builder Interdisciplinary Note - Manifold Builder This SW rounded with patient this morning. He is aware that precert is still pending for [place] and SW will update him as soon as determination is received. SW will also update his . Call placed to patient's this afternoon and a message was left letting her know that the precert remains pending at this time. Normal [facility] Comment on above: Result Comment: Elec tronically Signed By: Fely Narvaez.br\Date and Time Signed: 02/20/24 15:25 EDT Interdisciplinary Note - Manifold Builder Interdisciplinary Note - Manifold Builder This SW rounded with patient this morning. He is aware that precert is still pending for [place] and SW will update him as soon as determination is received. SW will also update his . Normal [facility] Comment on above: Result Comment: Elec tronically Signed By: Fely Narvaez.br\Date and Time Signed: 02/20/24 13:55 EDT eGFRon 02-20-2024 eGFR 43 mL/min/1.73 m2 Low >=59 [facility] Comment on above: Order Comment: Order added by Discern Expert. Performed By: #### 1 [id number] #### [facility] [address] [place] [address] BMPon 02-19-2024 Anion gap [Moles/Vol] 12 mmol/L Normal 6-16 [facility] Comment on above: Performed By: #### 2 [id number] #### [facility] [address] [place] [address] Calcium [Mass/Vol] 8.9 mg/dL Normal 8.9-11.1 [facility] Comment on above: Performed By: #### 2 [id number] #### [facility] [address] [place] [address] Chloride [Moles/Vol] 100 mmol/L Low 101-111 [facility] Comment on above: Performed By: #### 2 [id number] #### [facility] [address] [place] [address] CO2 [Moles/Vol] 28 mmol/L Normal 21-31 [facility] Comment on above: Performed By: #### 2 [id number] #### [facility] [address] [place] [address] Creatinine [Mass/Vol] 1.7 mg/dL High 0.5-1.3 [facility] Comment on above: Performed By: #### 2 [id number] #### [facility] [address] [place] [address] Glucose [Mass/Vol] 235 mg/dL High 55-199 [facility] Comment on above: Performed By: #### 2 [id number] #### [facility] [address] [place] [address] Potassium [Moles/Vol] 4.1 mmol/L Normal 3.5-5.3 [facility] Comment on above: Performed By: #### 2 [id number] #### [facility] [address] [place] [address] Sodium [Moles/Vol] 136 mmol/L Normal 135-145 [facility] Comment on above: Performed By: #### 2 [id number] #### [facility] [address] [place] [address] Urea nitrogen [Mass/Vol] 25 mg/dL High 5-21 [facility] Comment on above: Performed By: #### 2 [id number] #### [facility] [address] [place] [address] Urea nitrogen/Creatinine [Mass ratio] 15 No Units Normal 10-20 [facility] Comment on above: Performed By: #### 2 [id number] #### [facility] [address] [place] [address] CBC w/ Auto Diffon 4 Basophils/100 WBC (Bld) 1.6 % Normal 0.0-2.0 [facility] Comment on above: Performed By: #### 2 [id number] #### [facility] [address] [place] [address] Basophils/Leukocytes Auto (Bld) [Pure # fraction] 0.2 E9/L Normal 0.0-0.2 [facility] Comment on above: Performed By: #### 2 [id number] #### [facility] [address] [place] [address] Eosinophils (Bld) [#/Vol] 0.5 E9/L Normal 0.0-0.5 [facility] Comment on above: Performed By: #### 2 [id number] #### [facility] [address] [place] [address] Eosinophils/100 WBC (Bld) 5.1 % Normal 0.0-8.0 [facility] Comment on above: Performed By: #### 2 [id number] #### [facility] [address] [place] [address] Erythrocyte distribution width (RBC) [Ratio] 21.6 % High 10.9-14.2 [facility] Comment on above: Performed By: #### 2 [id number] #### [facility] [address] [place] [address] Hematocrit (Bld) [Volume fraction] 24.4 % Low 37.7-49.0 [facility] Comment on above: Performed By: #### 2 [id number] #### [facility] [address] [place] [address] Hemoglobin (Bld) [Mass/Vol] 7.9 g/dL Low 13.5-17.5 [facility] Comment on above: Performed By: #### 2 [id number] #### [facility] [address] [place] [address] Hypochromia Auto Ql (Bld) PRESENT Invalid Interpretation Code [facility] Comment on above: Performed By: #### 2 [id number] #### [facility] [address] [place] [address] Lymphocytes (Bld) [#/Vol] 1.9 E9/L Normal 1.0-4.0 [facility] Comment on above: Performed By: #### 2 [id number] #### [facility] [address] [place] [address] Lymphocytes/100 WBC (Bld) 18.4 % Normal 14.0-50.0 [facility] Comment on above: Performed By: #### 2 [id number] #### [facility] [address] [place] [address] MCH (RBC) [Entitic mass] 22.8 pg Low 27.0-34.0 [facility] Comment on above: Performed By: #### 2 [id number] #### [facility] [address] [place] [address] MCHC (RBC) [Mass/Vol] 32.3 g/dL Normal 31.4-36.0 [facility] Comment on above: Performed By: #### 2 [id number] #### [facility] [address] [place] [address] MCV (RBC) [Entitic vol] 70.4 fL Low 80.0-100.0 [facility] Comment on above: Performed By: #### 2 [id number] #### [facility] [address] [place] [address] Monocytes (Bld) [#/Vol] 1.0 E9/L Normal 0.2-1.0 [facility] Comment on above: Performed By: #### 2 [id number] #### [facility] [address] [place] [address] Neutrophils (Bld) [#/Vol] 6.7 E9/L Normal 2.0-7.5 [facility] Comment on above: Performed By: #### 2 [id number] #### [facility] [address] [place] [address] Neutrophils/100 WBC (Bld) 65.1 % Normal 36.0-75.0 [facility] Comment on above: Performed By: #### 2 [id number] #### [facility] [address] [place] [address] Platelet 444.0 E9/L Normal 150.0-500. 0 [facility] Comment on above: Performed By: #### 2 [id number] #### [facility] [address] [place] [address] Platelet mean volume (Bld) [Entitic vol] 8.1 fL Normal 6.4-10.8 [facility] Comment on above: Performed By: #### 2 [id number] #### [facility] [address] [place] [address] RBC (Bld) [#/Vol] 3.5 E12/L Low 4.3-5.9 [facility] Comment on above: Performed By: #### 2 [id number] #### [facility] [address] [place] [address] RBC size Nom (Bld) SEE MORPHOLOGY Invalid Interpretation Code [facility] Comment on above: Performed By: #### 2 [id number] #### [facility] [address] [place] [address] WBC corrected for nucl RBC Auto (Bld) [#/Vol] 10.3 E9/L Normal 4.0-11.0 [facility] Comment on above: Performed By: #### 2 [id number] #### [facility] [address] [place] [address] CHEMISTRYOrdered By: SYSTEM SYSTEM on 02-19-2024 Anion [...] 02-03 Glucose [Mass/Vol] 250 mg/dL High 55-99 [facility] Comment on above: Result Comment: Deon ETIENNE Performed By: #### 2 [id number] #### [facility] [address] [place] [address] Glucose [Mass/Vol] 272 mg/dL High 55-99 [facility] Comment on above: Result Comment: Deon ETIENNE Performed By: #### 2 [id number] #### [facility] [address] [place] [address] Glucose [Mass/Vol] 277 mg/dL High 55-99 [facility] Comment on above: Result Comment: Deon ETIENNE Performed By: #### 2 [id number] #### [facility] [address] [place] [address] Glucose [Mass/Vol] 217 mg/dL High 55-99 [facility] Comment on above: Result Comment: Deon hathaway RN/ Performed By: #### 2 [id number] #### [facility] [address] [place] [address] HEMATOLOGYOrdered By: SYSTEM SYSTEM on 02-19-2024 Basophils/100 [...] Jorge e Manageron 02-19-2024 Interdisciplinary Note - Manifold Builder Interdisciplinary Note - Manifold Builder This SW met with patient today to discuss discharge plans. Plan remains for patient to go to [facility] once precert is obtained. All updates have been sent to [place] for the precert, which was submitted on Monday. Patient requested that SW contact his once precert is obtained, or before the end of the day if not obtained today. This SW made a tc to patient's and let her know that precert is still pending. She voiced understanding. [facility] Comment on above: Result Comment: Elec tronically Signed By: Fely Narvaez.nile\Date and Time Signed: 02/19/24 15:59 EDT Interdisciplinary Note - Manifold Builder Interdisciplinary Note - Manifold Builder This SW met with patient today to discuss discharge plans. Plan remains for patient to go to [facility] in [place] once precert is obtained. All updates have been sent to [place] for the precert, which was submitted on Monday. Patient requested that SW contact his once precert is obtained, or before the end of the day if not obtained today. Normal [facility] Comment on [...] counts were correct. Sully Valdez Dictated: 02/12/2024 [id number] Transcribed: 02/13/2024 [facility] Comment on above: Result Comment: Elec tronically Signed By: Mike Montes MD\.br\Date and Time Signed: 02/19/24 09:51 EDT Operative Report Operative Report Patient: MYRA PICKARD SR Age: 58 years Sex: Male : 1965 Associated Diagnoses: None Author: MD Juanito, Laura Rodriguez Postoperative Information Date/ Time: 02/12/2024 15:00:00 Preoperative [...] tolerated the procedure well without complications.. Normal [facility] Comment on above: Result Comment: Elec tronically Signed By: MD Juanito, Laura Rodriguez\.br\Date and Time Signed: 02/19/24 08:36 EDT eGFRon 02-19-2024 eGFR 46 mL/min/1.73 m2 Low >=59 [facility] Comment on above: Order Comment: Order added by Discern Expert. Performed By: #### 1 [id number] #### [facility] [address] [place] [address] Capillary Glucose POCon 02-03 Glucose [Mass/Vol] 348 mg/dL High 55-99 [facility] Comment on above: Result Comment: Deon hathaway RN/ Performed By: #### 2 [id number] #### [facility] [address] [place] [address] Glucose [Mass/Vol] 323 mg/dL High 55-99 [facility] Comment on above: Result Comment: Deon hathaway RN/ Performed By: #### 2 [id number] #### [facility] [address] [place] [address] Glucose [Mass/Vol] 323 mg/dL High 55-99 [facility] Comment on above: Result Comment: Deon hathaway RN/ Performed By: #### 2 [id number] #### [facility] [address] [place] [address] Glucose [Mass/Vol] 210 mg/dL High 55-99 [facility] Comment on above: Result Comment: Deon hathaway RN/ Performed By: #### 2 [id number] #### [facility] [address] [place] [address] BMPon 02-17-2024 Anion gap [Moles/Vol] 13 mmol/L Normal 6-16 [facility] Comment on above: Performed By: #### 2 [id number] #### [facility] [address] [place] [address] Calcium [Mass/Vol] 9.3 mg/dL Normal 8.9-11.1 [facility] Comment on above: Performed By: #### 2 [id number] #### [facility] [address] [place] [address] Chloride [Moles/Vol] 98 mmol/L Low 101-111 [facility] Comment on above: Performed By: #### 2 [id number] #### [facility] [address] [place] [address] CO2 [Moles/Vol] 28 mmol/L Normal 21-31 [facility] Comment on above: Performed By: #### 2 [id number] #### [facility] [address] [place] [address] Creatinine [Mass/Vol] 1.8 mg/dL High 0.5-1.3 [facility] Comment on above: Performed By: #### 2 [id number] #### [facility] [address] [place] [address] Glucose [Mass/Vol] 374 mg/dL High 55-199 [facility] Comment on above: Performed By: #### 2 607179 #### [facility] [address] [place] [address] Potassium [Moles/Vol] 4.6 mmol/L Normal 3.5-5.3 [facility] Comment on above: Performed By: #### 2 [id number] #### [facility] [address] [place] [address] Sodium [Moles/Vol] 134 mmol/L Low 135-145 [facility] Comment on above: Performed By: #### 2 [id number] #### [facility] [address] [place] [address] Urea nitrogen [Mass/Vol] 25 mg/dL High 5-21 [facility] Comment on above: Performed By: #### 2 [id number] #### [facility] [address] [place] [address] Urea nitrogen/Creatinine [Mass ratio] 14 No Units Normal 10-20 [facility] Comment on above: Performed By: #### 2 [id number] #### [facility] [address] [place] [address] CBC w/ Auto Diffon 4 Basophils/100 WBC (Bld) 1.0 % Normal 0.0-2.0 [facility] Comment on above: Performed By: #### 2 [id number] #### [facility] [address] [place] [address] Basophils/Leukocytes Auto (Bld) [Pure # fraction] 0.1 E9/L Normal 0.0-0.2 [facility] Comment on above: Performed By: #### 2 [id number] #### [facility] [address] [place] [address] Eosinophils (Bld) [#/Vol] 0.5 E9/L Normal 0.0-0.5 [facility] Comment on above: Performed By: #### 2 [id number] #### [facility] [address] [place] [address] Eosinophils/100 WBC (Bld) 5.0 % Normal 0.0-8.0 [facility] Comment on above: Performed By: #### 2 [id number] #### [facility] [address] [place] [address] Erythrocyte distribution width (RBC) [Ratio] 21.6 % High 10.9-14.2 [facility] Comment on above: Performed By: #### 2 [id number] #### [facility] [address] [place] [address] Hematocrit (Bld) [Volume fraction] 24.8 % Low 37.7-49.0 [facility] Comment on above: Performed By: #### 2 [id number] #### [facility] [address] [place] [address] Hemoglobin (Bld) [Mass/Vol] 8.5 g/dL Low 13.5-17.5 [facility] Comment on above: Performed By: #### 2 [id number] #### [facility] [address] [place] [address] Lymphocytes (Bld) [#/Vol] 1.6 E9/L Normal 1.0-4.0 [facility] Comment on above: Performed By: #### 2 [id number] #### [facility] [address] [place] [address] Lymphocytes/100 WBC (Bld) 15.2 % Normal 14.0-50.0 [facility] Comment on above: Performed By: #### 2 [id number] #### [facility] [address] [place] [address] MCH (RBC) [Entitic mass] 24.3 pg Low 27.0-34.0 [facility] Comment on above: Performed By: #### 2 [id number] #### [facility] [address] [place] [address] MCHC (RBC) [Mass/Vol] 34.2 g/dL Normal 31.4-36.0 [facility] Comment on above: Performed By: #### 2 [id number] #### [facility] [address] [place] [address] MCV (RBC) [Entitic vol] 70.9 fL Low 80.0-100.0 [facility] Comment on above: Performed By: #### 2 [id number] #### [facility] [address] [place] [address] Microcytes Ql (Bld) PRESENT Invalid Interpretation Code [facility] Comment on above: Performed By: #### 2 [id number] #### [facility] [address] [place] [address] Monocytes (Bld) [#/Vol] 1.1 E9/L High 0.2-1.0 [facility] Comment on above: Performed By: #### 2 [id number] #### [facility] [address] [place] [address] Neutrophils (Bld) [#/Vol] 7.1 E9/L Normal 2.0-7.5 [facility] Comment on above: Performed By: #### 2 [id number] #### [facility] [address] [place] [address] Neutrophils/100 WBC (Bld) 68.3 % Normal 36.0-75.0 [facility] Comment on above: Performed By: #### 2 [id number] #### [facility] [address] [place] [address] Platelet 395.0 E9/L Normal 150.0-500. 0 [facility] [facility] Comment on above: Performed By: #### 2 [id number] #### [facility] [address] [place] [address] Platelet mean volume (Bld) [Entitic vol] 8.2 fL Normal 6.4-10.8 [facility] Comment on above: Performed By: #### 2 [id number] #### [facility] [address] [place] [address] RBC (Bld) [#/Vol] 3.5 E12/L Low 4.3-5.9 [facility] Comment on above: Performed By: #### 2 [id number] #### [facility] [address] [place] [address] RBC size Nom (Bld) SEE MORPHOLOGY Invalid Interpretation Code [facility] Comment on above: Performed By: #### 2 [id number] #### [facility] [address] [place] [address] WBC corrected for nucl RBC Auto (Bld) [#/Vol] 10.4 E9/L Normal 4.0-11.0 [facility] Comment on above: Performed By: #### 2 [id number] #### [facility] [address] [place] [address] Capillary Glucose POCon 02-03 Glucose [Mass/Vol] 366 mg/dL High 55-99 [facility] Comment on above: Result Comment: Deon ETIENNE Performed By: #### 2 [id number] #### [facility] [address] [place] [address] Glucose [Mass/Vol] 314 mg/dL High 55-99 [facility] Comment on above: Result Comment: Deon ETIENNE Performed By: #### 2 [id number] #### [facility] [address] [place] [address] Glucose [Mass/Vol] 389 mg/dL High 55-99 [facility] Comment on above: Result Comment: Deon ETIENNE Performed By: #### 2 [id number] #### [facility] [address] [place] [address] Glucose [Mass/Vol] 298 mg/dL High 55-99 [facility] Comment on above: Result Comment: Deon ETIENNE Performed By: #### 2 [id number] #### [facility] [address] [place] [address] HEMATOLOGYOrdered By: SYSTEM SYSTEM on 02-17-2024 Microcytes Ql (Bld) PRESENT *NA* (02/17/24 10:59 AM) Invalid Interpretation Code Remisol Heme eGFRon 02-17-2024 eGFR 43 mL/min/1.73 m2 Low >=59 [facility] Comment on above: Order Comment: Order added by Discern Expert. Performed By: #### 1 [id number] #### [facility] [address] [place] [address] BMPon 02-16-2024 Anion gap [Moles/Vol] 12 mmol/L Normal 6-16 [facility] Comment on above: Performed By: #### 2 [id number] #### [facility] [address] [place] [address] Calcium [Mass/Vol] 8.5 mg/dL Low 8.9-11.1 [facility] Comment on above: Performed By: #### 2 [id number] #### [facility] [address] [place] [address] Chloride [Moles/Vol] 100 mmol/L Low 101-111 [facility] Comment on above: Performed By: #### 2 [id number] #### [facility] [address] [place] [address] CO2 [Moles/Vol] 27 mmol/L Normal 21-31 [facility] Comment on above: Performed By: #### 2 [id number] #### [facility] [address] [place] [address] Creatinine [Mass/Vol] 1.8 mg/dL High 0.5-1.3 [facility] Comment on above: Performed By: #### 2 [id number] #### [facility] [address] [place] [address] Glucose [Mass/Vol] 242 mg/dL High 55-199 [facility] Comment on above: Performed By: #### 2 [id number] #### [facility] [address] [place] [address] Potassium [Moles/Vol] 3.8 mmol/L Normal 3.5-5.3 [facility] Comment on above: Performed By: #### 2 [id number] #### [facility] [address] [place] [address] Sodium [Moles/Vol] 135 mmol/L Normal 135-145 [facility] Comment on above: Performed By: #### 2 [id number] #### [facility] [address] [place] [address] Urea nitrogen [Mass/Vol] 25 mg/dL High 5-21 [facility] Comment on above: Performed By: #### 2 [id number] #### [facility] [address] [place] [address] Urea nitrogen/Creatinine [Mass ratio] 14 No Units Normal 10-20 [facility] Comment on above: Performed By: #### 2 [id number] #### [facility] [address] [place] [address] CBC w/ Auto Diffon 4 Basophils/100 WBC (Bld) 0.7 % Normal 0.0-2.0 [facility] Comment on above: Performed By: #### 2 [id number] #### [facility] [address] [place] [address] Basophils/Leukocytes Auto (Bld) [Pure # fraction] 0.1 E9/L Normal 0.0-0.2 [facility] Comment on above: Performed By: #### 2 [id number] #### [facility] [address] [place] [address] Eosinophils (Bld) [#/Vol] 0.5 E9/L Normal 0.0-0.5 [facility] Comment on above: Performed By: #### 2 [id number] #### [facility] [address] [place] [address] Eosinophils/100 WBC (Bld) 4.2 % Normal 0.0-8.0 [facility] Comment on above: Performed By: #### 2 [id number] #### [facility] [address] [place] [address] Erythrocyte distribution width (RBC) [Ratio] 21.5 % High 10.9-14.2 [facility] Comment on above: Performed By: #### 2 [id number] #### [facility] [address] [place] [address] Hematocrit (Bld) [Volume fraction] 22.9 % Low 37.7-49.0 [facility] Comment on above: Performed By: #### 2 [id number] #### [facility] [address] [place] [address] Hemoglobin (Bld) [Mass/Vol] 7.6 g/dL Low 13.5-17.5 [facility] Comment on above: Performed By: #### 2 [id number] #### [facility] [address] [place] [address] Hypochromia Auto Ql (Bld) PRESENT Invalid Interpretation Code [facility] Comment on above: Performed By: #### 2 [id number] #### [facility] [address] [place] [address] Lymphocytes (Bld) [#/Vol] 1.4 E9/L Normal 1.0-4.0 [facility] Comment on above: Performed By: #### 2 [id number] #### [facility] [address] [place] [address] Lymphocytes/100 WBC (Bld) 12.7 % Low 14.0-50.0 [facility] Comment on above: Performed By: #### 2 [id number] #### [facility] [address] [place] [address] MCH (RBC) [Entitic mass] 23.4 pg Low 27.0-34.0 [facility] Comment on above: Performed By: #### 2 [id number] #### [facility] [address] [place] [address] MCHC (RBC) [Mass/Vol] 33.0 g/dL Normal 31.4-36.0 [facility] Comment on above: Performed By: #### 2 [id number] #### [facility] [address] [place] [address] MCV (RBC) [Entitic vol] 70.9 fL Low 80.0-100.0 [facility] Comment on above: Performed By: #### 2 077043 #### [facility] [address] [place] [address] Microcytes Ql (Bld) PRESENT Invalid Interpretation Code [facility] Comment on above: Performed By: #### 2 [id number] #### [facility] [address] [place] [address] Monocytes (Bld) [#/Vol] 1.3 E9/L High 0.2-1.0 [facility] Comment on above: Performed By: #### 2 [id number] #### [facility] [address] [place] [address] Neutrophils (Bld) [#/Vol] 7.7 E9/L High 2.0-7.5 [facility] Comment on above: Performed By: #### 2 [id number] #### [facility] [address] [place] [address] Neutrophils/100 WBC (Bld) 70.1 % Normal 36.0-75.0 [facility] Comment on above: Performed By: #### 2 [id number] #### [facility] [address] [place] [address] Platelet 284.0 E9/L Normal 150.0-500. 0 [facility] Comment on above: Performed By: #### 2 [id number] #### [facility] [address] [place] [address] Platelet mean volume (Bld) [Entitic vol] 8.4 fL Normal 6.4-10.8 [facility] Comment on above: Performed By: #### 2 [id number] #### [facility] [address] [place] [address] RBC (Bld) [#/Vol] 3.2 E12/L Low 4.3-5.9 [facility] Comment on above: Performed By: #### 2 [id number] #### [facility] [address] [place] [address] RBC size Nom (Bld) SEE MORPHOLOGY Invalid Interpretation Code [facility] Comment on above: Performed By: #### 2 [id number] #### [facility] [address] [place] [address] WBC corrected for nucl RBC Auto (Bld) [#/Vol] 11.0 E9/L Normal 4.0-11.0 [facility] Comment on above: Performed By: #### 2 474391 #### [facility] [address] [place] [address] Capillary Glucose POCon 02-03 Glucose [Mass/Vol] 266 mg/dL High 55-99 [facility] Comment on above: Result Comment: Deon hathaway RN/ Performed By: #### 2 [id number] #### [facility] [address] [place] [address] Glucose [Mass/Vol] 319 mg/dL High 55-99 [facility] Comment on above: Result Comment: Deon ETIENNE Performed By: #### 2 [id number] #### [facility] [address] [place] [address] Glucose [Mass/Vol] 403 mg/dL High 55-99 [facility] Comment on above: Result Comment: Deon ETIENNE Performed By: #### 2 [id number] #### [facility] [address] [place] [address] Glucose [Mass/Vol] 319 mg/dL High 55-99 [facility] Comment on above: Result Comment: Deon ETIENNE Performed By: #### 2 [id number] #### [facility] [address] [place] [address] Glucose [Mass/Vol] 253 mg/dL High 55-99 [facility] Comment on above: Result Comment: Deon ETIENNE Performed By: #### 2 [id number] #### [facility] [address] [place] [address] Coding Queryon 02-16-2024 Coding Query Coding Query [...] desired or expected. Thank you!eliz [phone] From: Elan Antonio MD To: Eliz Diaz RN; Sent: 02/16/2024 18:24:47 EDT Subject: RE: Coding Query Caller Name: MYRA PICKARD SR; Caller Number: H Dx: acute blood loss anemia Normal [facility] Inpatient Clinical Summaryon 02-16-2024 Inpatient Clinical Summary Inpatient Clinical Summary [address] [address] Clinical Summary Person Information: Name: MYRA PICKARD SR Age: 58 Years : 1965 Sex: Male PCP: TERESA LYNCH DO Marital Status: Race: White Ethnicity: Non- or Language: Belarusian Visit Id: Visit Reason: I70.261 Speciality: Acuity: Enc Type: Inpatient Med Service: Medical Arrival: 02/12/2024 11:13:26 Discharge: Dispo Type: Address: [address] [place] [address] [address] [facility] [id number] Provider Notes: Diagnosis: 1:Hx of right BKA; [...] Montes MD Follow up: Patient Education Information: [facility] Inpatient Patient Summaryon 02-16-2024 Inpatient Patient Summary Inpatient Patient Summary [place] [address] Patient Discharge Instructions PERSON INFORMATION Name: MATTEO CHRISTIAN MYRA Daniel Date of : 1965 Current Date: 02/16/2024 [...] Last Dose: (more content not included)... Normal [facility] Insurance Correspondence Off iceon 02-16-2024 Insurance Correspondence Office Insurance Correspondence Office [...] correct. Mike Montes M.D. noe Dictated: 02/12/2024 [id number] Transcribed: 02/13/2024 Normal [facility] Interdisciplinary Note - Jorge e Manageron 02-16-2024 Interdisciplinary Note - Manifold Builder Interdisciplinary Note - Manifold Builder This SW [facility] that patient's had called and wanted to cancel the Acute [facility]hab and proceed with [facility]. TC from Acute Rehab was received asking [...] SW also explained that if going to [facility], precert would have to be obtained. SW spent a lengthy amount of time going over the differences between the 2 faciliites with patient. He informed SW that his choice was to go to [place], not Acute Rehab. SW notified Acute Rehab [...] 3 steps to enter their home. Normal [facility] Comment on above: Result Comment: Elec tronically Signed By: Evens SÁNCHEZ, Fely Martin\.br\Date and Time Signed: 02/16/24 12:45 EDT eGFRon 02-16-2024 eGFR 43 mL/min/1.73 m2 Low >=59 [facility] Comment on above: Order Comment: Order added by Discern Expert. Performed By: #### 1 [id number] #### [facility] [address] [place] [address] BMPon 02-15-2024 Anion gap [Moles/Vol] 9 mmol/L Normal 6-16 [facility] Comment on above: Performed By: #### 2 [id number] #### [facility] [address] [place] [address] Calcium [Mass/Vol] 8.3 mg/dL Low 8.9-11.1 [facility] Comment on above: Performed By: #### 2 [id number] #### [facility] [address] [place] [address] Chloride [Moles/Vol] 98 mmol/L Low 101-111 [facility] Comment on above: Performed By: #### 2 [id number] #### [facility] [address] [place] [address] CO2 [Moles/Vol] 30 mmol/L Normal 21-31 [facility] Comment on above: Performed By: #### 2 [id number] #### [facility] [address] [place] [address] Creatinine [Mass/Vol] 1.9 mg/dL High 0.5-1.3 [facility] Comment on above: Performed By: #### 2 [id number] #### [facility] [address] [place] [address] Glucose [Mass/Vol] 319 mg/dL High 55-199 [facility] Comment on above: Performed By: #### 2 [id number] #### [facility] [address] [place] [address] Potassium [Moles/Vol] 3.9 mmol/L Normal 3.5-5.3 [facility] Comment on above: Performed By: #### 2 778309 #### [facility] [address] [place] [address] Sodium [Moles/Vol] 133 mmol/L Low 135-145 [facility] Comment on above: Performed By: #### 2 [id number] #### [facility] [address] [place] [address] Urea nitrogen [Mass/Vol] 25 mg/dL High 5-21 [facility] Comment on above: Performed By: #### 2 [id number] #### [facility] [address] [place] [address] Urea nitrogen/Creatinine [Mass ratio] 13 No Units Normal 10-20 [facility] Comment on above: Performed By: #### 2 [id number] #### [facility] [address] [place] [address] CBC w/Indiceson 02-15-2024 Erythrocyte distribution width (RBC) [Ratio] 20.9 % High 10.9-14.2 [facility] Comment on above: Performed By: #### 2 [id number] #### [facility] [address] [place] [address] Hematocrit (Bld) [Volume fraction] 22.2 % Low 37.7-49.0 [facility] Comment on above: Performed By: #### 2 [id number] #### [facility] [address] [place] [address] Hemoglobin (Bld) [Mass/Vol] 7.7 g/dL Low 13.5-17.5 [facility] Comment on above: Performed By: #### 2 [id number] #### [facility] [address] [place] [address] MCH (RBC) [Entitic mass] 24.3 pg Low 27.0-34.0 [facility] Comment on above: Performed By: #### 2 [id number] #### [facility] [address] [place] [address] MCHC (RBC) [Mass/Vol] 34.6 g/dL Normal 31.4-36.0 [facility] Comment on above: Performed By: #### 2 [id number] #### [facility] [address] [place] [address] MCV (RBC) [Entitic vol] 70.2 fL Low 80.0-100.0 [facility] Comment on above: Performed By: #### 2 [id number] #### [facility] [address] [place] [address] Platelet 239.0 E9/L Normal 150.0-500. 0 [facility] Comment on above: Performed By: #### 2 [id number] #### [facility] [address] [place] [address] Platelet mean volume (Bld) [Entitic vol] 8.2 fL Normal 6.4-10.8 [facility] Comment on above: Performed By: #### 2 [id number] #### [facility] [address] [place] [address] RBC (Bld) [#/Vol] 3.2 E12/L Low 4.3-5.9 [facility] Comment on above: Performed By: #### 2 [id number] #### [facility] [address] [place] [address] RBC size Nom (Bld) NORMAL Invalid Interpretation Code [facility] Comment on above: Performed By: #### 2 [id number] #### [facility] [address] [place] [address] WBC corrected for nucl RBC Auto (Bld) [#/Vol] 9.0 E9/L Normal 4.0-11.0 [facility] Comment on above: Performed By: #### 2 668166 #### [facility] [address] [place] [address] CHEMISTRYOrdered By: SYSTEM SYSTEM on 02-15-2024 Magnesium [Mass/Vol] 1.7 mg/dL Normal 1.3 - 2 .4 mg/dL Remisol Chem Phosphate [Mass/Vol] 3.8 mg/dL Normal 1.9 - 4 .6 mg/dL Remisol Chem COAGULATIONOrdered By: Nely on Bruce on 02-15-2024 aPTT Coag (PPP) [Time] 28.6 s Normal 25.1 - 36.5 second(s) [facility] Comment on above: Interpretive Data: [...] the same coagulation reagent and instrumentation as [facility]. Currently there are no coagulation studies available worldwide for children to 14 days, and no normal ranges. Heparin therapeutic range (represented by Anti-Factor Xa activity of 0.2 - 0.4 U/mL) corresponds to PTT of 56.6 - 109.0 sec. INR Coag (PPP) [Relative time] 1.09 {INR} Invalid Interpretation Code [facility] Comment on above: Interpretive Data: I NR results are specifically intended to assess patients stabilized on long-term Anticoagulation therapy suggested INR s Less Intensive Anticoagulation 2.0 3.0 Conventional Range 3.0 4.5 PT Coag (PPP) [Time] 12.2 s Normal 9.4 - 1 2.5 second(s) [facility] Comment on above: Interpretive Data: [...] the same coagulation reagent and instrumentation as [facility]. Currently there are no coagulation studies available worldwide for children to 14 days, and no normal ranges. Capillary Glucose POCon 02-03 Glucose [Mass/Vol] 398 mg/dL High 55-99 [facility] Comment on above: Result Comment: Deon ETIENNE Performed By: #### 2 [id number] #### [facility] [address] [place] [address] Glucose [Mass/Vol] 337 mg/dL High 55-99 [facility] Comment on above: Result Comment: Deon ETEINNE Performed By: #### 2 [id number] #### [facility] [address] [place] [address] Glucose [Mass/Vol] 228 mg/dL High 55-99 [facility] Comment on above: Result Comment: Deon ETIENNE Performed By: #### 2 [id number] #### [facility] [address] [place] [address] Glucose [Mass/Vol] 309 mg/dL High 55-99 [facility] Comment on above: Result Comment: Deon hathaway RN/MD Performed By: #### 2 [id number] #### [facility] [address] [place] [address] Interdisciplinary Note - Jorge e Manageron 02-15-2024 Interdisciplinary Note - Manifold Builder Interdisciplinary Note - Manifold Builder CRM to room 309 Patient is awake, alert and oriented. Patient is from home with his spouse. Patient verified PCP, DME and insurance. Patient is here as inpatient. Patient had Right BKA. Patient is assigned to Dr Antonio. Vascular Dr Montes did surgery. Patient is getting transfusion PRBC. Patient will need PT/OT added when appropriate. Patient would like rehab stay. Choices [facility]. Patient was provided CRM contact, white board updated. CRM following DC date when [facility] can take per Dr Antonio patient is not ready for DC now drop in HGB, bleeding at stump and still on IV pain meds Rehab needs him on an oral regimen Normal [facility] Comment on above: Result Comment: Elec tronically Signed By: Raina Aguilar\.br\Date and Time Signed: 02/15/24 14:08 EDT Magnesiumon 02-15-2024 Magnesium [Mass/Vol] 1.7 mg/dL Normal 1.3-2.4 [facility] Comment on above: Performed By: #### 2 [id number] #### [facility] [address] [place] [address] PT & PTTon 02-15-2024 aPTT Coag (PPP) [Time] 28.6 second(s) Normal 25.1-36.5 [facility] Comment on above: Result Comment: Para [...] the same coagulation reagent and instrumentation as [facility]. Currently there are no coagulation studies available worldwide for children to 14 days, and no normal ranges. Heparin therapeutic range (represented by Anti-Factor Xa activity of 0.2 - 0.4 U/mL) corresponds to PTT of 56.6 - 109.0 sec. Performed By: #### 1 [id number] #### [facility] [address] [place] [address] INR Coag (PPP) [Relative time] 1.09 {INR} Invalid Interpretation Code [facility] Comment on above: Result Comment: INR results are specifically intended to assess patients stabilized on long-term Anticoagulation therapy suggested INR?s ?Less Intensive Anticoagulation? 2.0 ? 3.0 Conventional Range 3.0 ? 4.5 Performed By: #### 1 [id number] #### [facility] [address] [place] [address] PT Coag (PPP) [Time] 12.2 second(s) Normal 9.4-12.5 [facility] Comment on above: Result Comment: 15 [...] the same coagulation reagent and instrumentation as [facility]. Currently there are no coagulation studies available worldwide for children to 14 days, and no normal ranges. Performed By: #### 1 [id number] #### [facility] [address] [place] [address] Phosphoruson 02-15-2024 Phosphate [Mass/Vol] 3.8 mg/dL Normal 1.9-4.6 [facility] Comment on above: Performed By: #### 2 [id number] #### [facility] [address] [place] [address] eGFRon 02-15-2024 eGFR 40 mL/min/1.73 m2 Low >=59 [facility] [facility] Comment on above: Order Comment: Order added by Discern Expert. Performed By: #### 1 [id number] #### [facility] [address] [address] BMPon 02-14-2024 Anion gap [Moles/Vol] 12 mmol/L Normal 6-16 [facility] Comment on above: Performed By: #### 2 [id number] #### [facility] [address] [place] [address] Calcium [Mass/Vol] 8.3 mg/dL Low 8.9-11.1 [facility] Comment on above: Performed By: #### 2 [id number] #### [facility] [address] [place] [address] Chloride [Moles/Vol] 96 mmol/L Low 101-111 [facility] Comment on above: Performed By: #### 2 [id number] #### [facility] [address] [place] [address] CO2 [Moles/Vol] 28 mmol/L Normal 21-31 [facility] Comment on above: Performed By: #### 2 [id number] #### [facility] [address] [place] [address] Creatinine [Mass/Vol] 1.8 mg/dL High 0.5-1.3 [facility] Comment on above: Performed By: #### 2 [id number] #### [facility] [address] [place] [address] Glucose [Mass/Vol] 298 mg/dL High 55-199 [facility] Comment on above: Performed By: #### 2 [id number] #### [facility] [address] [place] [address] Potassium [Moles/Vol] 3.7 mmol/L Normal 3.5-5.3 [facility] Comment on above: Performed By: #### 2 [id number] #### [facility] [address] [place] [address] Sodium [Moles/Vol] 132 mmol/L Low 135-145 [facility] Comment on above: Performed By: #### 2 [id number] #### [facility] [address] [place] [address] Urea nitrogen [Mass/Vol] 21 mg/dL Normal 5-21 [facility] Comment on above: Performed By: #### 2 [id number] #### [facility] [address] [place] [address] Urea nitrogen/Creatinine [Mass ratio] 12 No Units Normal 10-20 [facility] Comment on above: Performed By: #### 2 [id number] #### [facility] [address] [place] [address] CBC w/ Auto Diffon 4 Basophils/100 WBC (Bld) 1.9 % Normal 0.0-2.0 [facility] Comment on above: Performed By: #### 2 [id number] #### [facility] [address] [place] [address] Basophils/Leukocytes Auto (Bld) [Pure # fraction] 0.2 E9/L Normal 0.0-0.2 [facility] Comment on above: Performed By: #### 2 [id number] #### [facility] [address] [place] [address] Eosinophils (Bld) [#/Vol] 0.3 E9/L Normal 0.0-0.5 [facility] Comment on above: Performed By: #### 2 [id number] #### [facility] [address] [place] [address] Eosinophils/100 WBC (Bld) 3.1 % Normal 0.0-8.0 [facility] Comment on above: Performed By: #### 2 [id number] #### [facility] [address] [place] [address] Erythrocyte distribution width (RBC) [Ratio] 21.1 % High 10.9-14.2 [facility] Comment on above: Performed By: #### 2 [id number] #### [facility] [address] [place] [address] Hematocrit (Bld) [Volume fraction] 26.4 % Low 37.7-49.0 [facility] Comment on above: Performed By: #### 2 [id number] #### [facility] [address] [place] [address] Hemoglobin (Bld) [Mass/Vol] 8.5 g/dL Low 13.5-17.5 [facility] Comment on above: Performed By: #### 2 [id number] #### [facility] [address] [place] [address] Hypochromia Auto Ql (Bld) PRESENT Invalid Interpretation Code [facility] Comment on above: Performed By: #### 2 [id number] #### [facility] [address] [place] [address] Lymphocytes (Bld) [#/Vol] 1.1 E9/L Normal 1.0-4.0 [facility] Comment on above: Performed By: #### 2 [id number] #### [facility] [address] [place] [address] Lymphocytes/100 WBC (Bld) 11.3 % Low 14.0-50.0 [facility] Comment on above: Performed By: #### 2 [id number] #### [facility] [address] [place] [address] MCH (RBC) [Entitic mass] 23.3 pg Low 27.0-34.0 [facility] Comment on above: Performed By: #### 2 [id number] #### [facility] [address] [place] [address] MCHC (RBC) [Mass/Vol] 32.4 g/dL Normal 31.4-36.0 [facility] Comment on above: Performed By: #### 2 [id number] #### [facility] [address] [place] [address] MCV (RBC) [Entitic vol] 71.8 fL Low 80.0-100.0 [facility] Comment on above: Performed By: #### 2 [id number] #### [facility] [address] [place] [address] Microcytes Ql (Bld) PRESENT Invalid Interpretation Code [facility] Comment on above: Performed By: #### 2 [id number] #### [facility] [address] [place] [address] Monocytes (Bld) [#/Vol] 1.0 E9/L Normal 0.2-1.0 [facility] Comment on above: Performed By: #### 2 [id number] #### [facility] [address] [place] [address] Neutrophils (Bld) [#/Vol] 7.5 E9/L Normal 2.0-7.5 [facility] Comment on above: Performed By: #### 2 [id number] #### [facility] [address] [place] [address] Neutrophils/100 WBC (Bld) 74.1 % Normal 36.0-75.0 [facility] Comment on above: Performed By: #### 2 [id number] #### [facility] [address] [place] [address] Platelet mean volume (Bld) [Entitic vol] 8.3 fL Normal 6.4-10.8 [facility] Comment on above: Performed By: #### 2 [id number] #### [facility] [address] [place] [address] Platelets (Bld) [#/Vol] 244.0 E9/L Normal 150.0-500. 0 [facility] Comment on above: Performed By: #### 2 [id number] #### [facility] [address] [place] [address] RBC (Bld) [#/Vol] 3.7 E12/L Low 4.3-5.9 [facility] Comment on above: Performed By: #### 2 [id number] #### [facility] [address] [place] [address] RBC size Nom (Bld) SEE MORPHOLOGY Invalid Interpretation Code [facility] Comment on above: Performed By: #### 2 [id number] #### [facility] [address] [place] [address] WBC corrected for nucl RBC Auto (Bld) [#/Vol] 10.2 E9/L Normal 4.0-11.0 [facility] Comment on above: Performed By: #### 2 [id number] #### [facility] [address] [place] [address] CHEMISTRYOrdered By: SYSTEM SYSTEM on 02-14-2024 Magnesium [Mass/Vol] 1.8 mg/dL Normal 1.3 - 2 .4 mg/dL [facility] Phosphate [Mass/Vol] 3.8 mg/dL Normal 1.9 - 4 .6 mg/dL [facility] COAGULATIONOrdered By: Deborah Parks on 02-14-2024 aPTT Coag (PPP) [Time] 28.8 s Normal 25.1 - 36.5 second(s) [facility] Comment on above: Interpretive Data: [...] the same coagulation reagent and instrumentation as [facility]. Currently there are no coagulation studies available worldwide for children to 14 days, and no normal ranges. Heparin therapeutic range (represented by Anti-Factor Xa activity of 0.2 - 0.4 U/mL) corresponds to PTT of 56.6 - 109.0 sec. INR Coag (PPP) [Relative time] 1.04 {INR} Invalid Interpretation Code [facility] Comment on above: Interpretive Data: I NR results are specifically intended to assess patients stabilized on long-term Anticoagulation therapy suggested INR s Less Intensive Anticoagulation 2.0 3.0 Conventional Range 3.0 4.5 PT Coag (PPP) [Time] 11.7 s Normal 9.4 - 1 2.5 second(s) [facility] Comment on above: Interpretive Data: [...] the same coagulation reagent and instrumentation as [facility]. Currently there are no coagulation studies available worldwide for children to 14 days, and no normal ranges. Capillary Glucose POCon 02-03 Glucose [Mass/Vol] 269 mg/dL High 55-99 [facility] Comment on above: Result Comment: Deon ETIENNE Performed By: #### 2 [id number] #### [facility] [address] [place] [address] Glucose [Mass/Vol] 279 mg/dL High 55-99 [facility] Comment on above: Result Comment: Deon ETIENNE Performed By: #### 2 [id number] #### [facility] [address] [place] [address] Glucose [Mass/Vol] 285 mg/dL High 55-99 [facility] Comment on above: Result Comment: Repe at Test Performed By: #### 2 [id number] #### [facility] [address] [place] [address] Glucose [Mass/Vol] 242 mg/dL High 55-99 [facility] Comment on above: Result Comment: Repe at Test Performed By: #### 2 [id number] #### [facility] [address] [place] [address] Interdisciplinary Note - Jorge e Manageron 02-14-2024 Interdisciplinary Note - Manifold Builder Interdisciplinary Note - Manifold Builder This SW rounded with patient in room 309 this morning. Patient is alert, oriented, and involved in his plan of care. He remains agreeable to going to 1) [facility] - referral pending, 2) [facility] - they have accepted, or 3) [facility] - they have accepted. Acute Rehab is awaiting therapy notes to make their final determination. SW will update patient once determination is received. Patient did request that SW contact his , Yamileth, with an update this afternoon. TC made to Yamileth and she was updated on the above. She voiced that patient has been refusing her recommendation for [facility], however SW let her know that he was agreeable this morning. This SW had discussed the differences between Acute Rehab and SNF to patient. Normal [facility] Comment on above: Result Comment: Elec tronically Signed By: Fely [email or web address]\Date and Time Signed: 02/14/24 12:15 EDT Interdisciplinary Note - Manifold Builder Interdisciplinary Note - Manifold Builder This SW rounded with patient in room 309 this morning. Patient is alert, oriented, and involved in his plan of care. He remains agreeable to going to 1) [facility] - referral pending, 2) [facility] - they have accepted, or 3) [facility] - they have accepted. Acute Rehab is awaiting therapy notes to make their final determination. SW will update patient once determination is received. Patient did request that SW contact his , Yamileth, with an update this afternoon. Normal [facility] Comment on [...] follow daily progressing as pt tolerates. Normal [facility] Magnesiumon 02-14-2024 Magnesium [Mass/Vol] 1.8 mg/dL Normal 1.3-2.4 [facility] Comment on above: Performed By: #### 2 [id number] #### [facility] [address] [place] [address] PT & PTTon 02-14-2024 aPTT Coag (PPP) [Time] 28.8 second(s) Normal 25.1-36.5 [facility] Comment on above: Result Comment: Para [...] the same coagulation reagent and instrumentation as [facility]. Currently there are no coagulation studies available worldwide for children to 14 days, and no normal ranges. Heparin therapeutic range (represented by Anti-Factor Xa activity of 0.2 - 0.4 U/mL) corresponds to PTT of 56.6 - 109.0 sec. Performed By: #### 1 [id number] #### [facility] [address] [place] [address] INR Coag (PPP) [Relative time] 1.04 {INR} Invalid Interpretation Code [facility] Comment on above: Result Comment: INR results are specifically intended to assess patients stabilized on long-term Anticoagulation therapy suggested INR?s ?Less Intensive Anticoagulation? 2.0 ? 3.0 Conventional Range 3.0 ? 4.5 Performed By: #### 1 [id number] #### [facility] [address] [place] [address] PT Coag (PPP) [Time] 11.7 second(s) Normal 9.4-12.5 [facility] Comment on above: Result Comment: 15 [...] the same coagulation reagent and instrumentation as [facility]. Currently there are no coagulation studies available worldwide for children to 14 days, and no normal ranges. Performed By: #### 1 [id number] #### [facility] [address] [place] [address] Phosphoruson 02-14-2024 Phosphate [Mass/Vol] 3.8 mg/dL Normal 1.9-4.6 [facility] Comment on above: Performed By: #### 2 [id number] #### [facility] [address] [place] [address] eGFRon 02-14-2024 eGFR 43 mL/min/1.73 m2 Low >=59 [facility] Comment on above: Order Comment: Order added by Discern Expert. Performed By: #### 1 [id number] #### [facility] [address] [place] [address] BMPon 02-13-2024 Anion gap [Moles/Vol] 11 mmol/L Normal 6-16 [facility] Comment on above: Performed By: #### 2 [id number] #### [facility] [address] [place] [address] Calcium [Mass/Vol] 8.0 mg/dL Low 8.9-11.1 [facility] Comment on above: Performed By: #### 2 [id number] #### [facility] [address] [place] [address] Chloride [Moles/Vol] 99 mmol/L Low 101-111 [facility] Comment on above: Performed By: #### 2 [id number] #### [facility] [address] [place] [address] CO2 [Moles/Vol] 26 mmol/L Normal 21-31 [facility] Comment on above: Performed By: #### 2 [id number] #### [facility] [address] [place] [address] Creatinine [Mass/Vol] 1.6 mg/dL High 0.5-1.3 [facility] Comment on above: Performed By: #### 2 [id number] #### [facility] [address] [place] [address] Glucose [Mass/Vol] 234 mg/dL High 55-199 [facility] Comment on above: Performed By: #### 2 [id number] #### [facility] [address] [place] [address] Potassium [Moles/Vol] 4.0 mmol/L Normal 3.5-5.3 [facility] Comment on above: Performed By: #### 2 [id number] #### [facility] [address] [place] [address] Sodium [Moles/Vol] 132 mmol/L Low 135-145 [facility] Comment on above: Performed By: #### 2 [id number] #### [facility] [address] [place] [address] Urea nitrogen [Mass/Vol] 19 mg/dL Normal 5-21 [facility] Comment on above: Performed By: #### 2 [id number] #### [facility] [address] [place] [address] Urea nitrogen/Creatinine [Mass ratio] 12 No Units Normal 10-20 [facility] Comment on above: Performed By: #### 2 [id number] #### [facility] [address] [place] [address] CBC w/Indiceson 02-13-2024 Erythrocyte distribution width (RBC) [Ratio] 18.8 % High 10.9-14.2 [facility] Comment on above: Performed By: #### 2 [id number] #### [facility] [address] [place] [address] Hematocrit (Bld) [Volume fraction] 19.5 % Low 37.7-49.0 [facility] Comment on above: Performed By: #### 2 [id number] #### [facility] [address] [place] [address] Hemoglobin (Bld) [Mass/Vol] 6.3 g/dL Abnormal 13.5-17.5 [facility] Comment on above: Result Comment: Crit ical Result Verified by Repeat Analysis Results called to DAVID WELSH by BRAVO and read back on 02/13/2024 05:48:17. Performed By: #### 2 [id number] #### [facility] [address] [place] [address] Hypochromia Auto Ql (Bld) PRESENT Invalid Interpretation Code [facility] Comment on above: Performed By: #### 2 [id number] #### [facility] [address] [place] [address] MCH (RBC) [Entitic mass] 21.6 pg Low 27.0-34.0 [facility] Comment on above: Performed By: #### 2 [id number] #### [facility] [address] [place] [address] MCHC (RBC) [Mass/Vol] 32.3 g/dL Normal 31.4-36.0 [facility] Comment on above: Performed By: #### 2 [id number] #### [facility] [address] [place] [address] MCV (RBC) [Entitic vol] 67.0 fL Low 80.0-100.0 [facility] Comment on above: Performed By: #### 2 [id number] #### [facility] [address] [place] [address] Microcytes Ql (Bld) PRESENT Invalid Interpretation Code [facility] Comment on above: Performed By: #### 2 [id number] #### [facility] [address] [place] [address] Platelet 245.0 E9/L Normal 150.0-500. 0 [facility] Comment on above: Performed By: #### 2 [id number] #### [facility] [address] [place] [address] Platelet mean volume (Bld) [Entitic vol] 8.2 fL Normal 6.4-10.8 [facility] Comment on above: Performed By: #### 2 [id number] #### [facility] [address] [place] [address] RBC (Bld) [#/Vol] 2.9 E12/L Low 4.3-5.9 [facility] Comment on above: Performed By: #### 2 [id number] #### [facility] [address] [place] [address] RBC size Nom (Bld) SEE MORPHOLOGY Invalid Interpretation Code [facility] Comment on above: Performed By: #### 2 [id number] #### [facility] [address] [place] [address] WBC corrected for nucl RBC Auto (Bld) [#/Vol] 12.9 E9/L High 4.0-11.0 [facility] Comment on above: Performed By: #### 2 [id number] #### [facility] [address] [place] [address] CHEMISTRYOrdered By: Simon Helm on 02-13-2024 HbA1c (Bld) [Mass fraction] 10.3 % High <=5.9% [facility] ChemAutoSS CHEMISTRYOrdered By: SYSTEM SYSTEM on 02-13-2024 Magnesium [Mass/Vol] 1.3 mg/dL Normal 1.3 - 2 .4 mg/dL [facility] Chem Phosphate [Mass/Vol] 2.5 mg/dL Normal 1.9 - 4 .6 mg/dL [facility] COAGULATIONOrdered By: Pietro Garibay on 02-13-2024 aPTT Coag (PPP) [Time] 27.5 s Normal 25.1 - 36.5 second(s) [facility] Comment on above: Interpretive Data: Mari moseser 15 days - 4 weeks 1 - [...] the same coagulation reagent and instrumentation as [facility]. Currently there are no coagulation studies available worldwide for children to 14 days, and no normal ranges. Heparin therapeutic range (represented by Anti-Factor Xa activity of 0.2 - 0.4 U/mL) corresponds to PTT of 56.6 - 109.0 sec. INR Coag (PPP) [Relative time] 1.11 {INR} Invalid Interpretation Code [facility] Comment on above: Interpretive Data: I NR results are specifically intended to assess patients stabilized on long-term Anticoagulation therapy suggested INR s Less Intensive Anticoagulation 2.0 3.0 Conventional Range 3.0 4.5 PT Coag (PPP) [Time] 12.5 s Normal 9.4 - 1 2.5 second(s) [facility] Comment on above: Interpretive Data: [...] the same coagulation reagent and instrumentation as [facility]. Currently there are no coagulation studies available worldwide for children to 14 days, and no normal ranges. Capillary Glucose POCon 02-03 Glucose [Mass/Vol] 332 mg/dL High 55-99 [facility] Comment on above: Result Comment: Deon ETIENNE Performed By: #### 2 [id number] #### [facility] [address] [place] [address] Glucose [Mass/Vol] 194 mg/dL High 55-99 [facility] Comment on above: Result Comment: Deon ETIENNE Performed By: #### 2 [id number] #### [facility] [address] [place] [address] Glucose [Mass/Vol] 195 mg/dL High 55-99 [facility] Comment on above: Result Comment: Deon ETIENNE Performed By: #### 2 [id number] #### [facility] [address] [place] [address] Glucose [Mass/Vol] 194 mg/dL High 55-99 [facility] Comment on above: Result Comment: Deon ETIENNE Performed By: #### 2 [id number] #### [facility] [address] [place] [address] Glucose [Mass/Vol] 324 mg/dL High 55-99 [facility] Comment on above: Result Comment: Deon ETIENNE Performed By: #### 2 [id number] #### [facility] [address] [place] [address] Coding Queryon 02-13-2024 Coding Query Coding Query [...] desired or expected. Thank you!eliz [id number] Normal [facility] Hct & Hgbon 02-13-2024 Hematocrit (Bld) [Volume fraction] 24.4 % Low 37.7-49.0 [facility] Comment on above: Performed By: #### 1 [id number] #### [facility] [address] [place] [address] Hemoglobin (Bld) [Mass/Vol] 7.9 g/dL Low 13.5-17.5 [facility] Comment on above: Performed By: #### 1 [id number] #### [facility] [address] [place] [address] AyaY6htl 02-13-2024 HbA1c (Bld) [Mass fraction] 10.3 % High <=5.9 [facility] Comment on above: Performed By: #### 7 [id number] #### [facility] [address] [place] [address] Interdisciplinary Note - Jorge e Manageron 02-13-2024 Interdisciplinary Note - Manifold Builder Interdisciplinary Note - Manifold Builder CRM to room 309 Patient is awake, alert and oriented. Patient is from home with his spouse. Patient verified PCP, DME and insurance. Patient is here as inpatient. Patient had Right BKA. Patient is assigned to Dr Antonio. Vascular Dr Montes did surgery. Patient is getting transfusion PRBC. Patient will need PT/OT added when appropriate. Patient would like SN[place]. Patient is unsure of choices yet. His spouse was doing some research. CRM did try to call Spouse at [phone] and left VM. CRM did leave printed SNF list in room. Patient was provided CRM contact, white board updated. CRM following DC date TBD. CRM will get updates at 10 AM from hospitalist called CRM choices of [facility], [facility] and [facility] for rehab [facility] Comment on above: Result Comment: Michael tronically Signed By: Raina Aguilar\.br\Date and Time Signed: 02/13/24 13:10 EDT Interdisciplinary Note - Manifold Builder Interdisciplinary Note - Manifold Builder CRM to room 309 Patient is awake, alert and oriented. Patient is from home with his spouse. Patient verified PCP, DME and insurance. Patient is here as inpatient. Patient had Right BKA. Patient is assigned to Dr Antonio. Vascular Dr Montes did surgery. Patient is getting transfusion PRBC. Patient will need PT/OT added when appropriate. [place]. Patient is unsure of choices yet. His spouse was doing some research. CRM did try to call Spouse at [phone] and left VM. CRM did leave printed SNF list in room. Patient was provided CRM contact, white board updated. CRM following DC date TBD. CRM will get updates at 10 AM from hospitalist [facility] Comment on above: Result Comment: Michael navarretenically Signed By: Raina Aguilar\.br\Date and Time Signed: 02/13/24 09:21 EDT Interdisciplinary Note - Maria Elena n 02-13-2024 Interdisciplinary Note - OT Interdisciplinary Note - OT 02/13/24: OT orders received, chart reviewed. Holding OT eval this date as Pt has critically low Hbg levels. Will try again with OT eval when Pt is medically appropriate. Normal [facility] Interdisciplinary Note - PTo n 02-13-2024 Interdisciplinary Note - PT Interdisciplinary Note - PT Order received and chart reviewed. Pt with critical Hgb levels at this time. Will hold and attempt tomorrow Normal [facility] Magnesiumon 02-13-2024 Magnesium [Mass/Vol] 1.3 mg/dL Normal 1.3-2.4 [facility] Comment on above: Performed By: #### 2 [id number] #### [facility] Laboratory [address] [place] [address] Main OR Intraoperative Recor don 02-13-2024 Main OR Intraoperative Record Main OR Intraoperative Record IntraOp Document Type FT Summary Primary Physician: Mike Montes MD Finalized Date/Time: 02/13/24 13:38:10 Pt. Name: MATTEO CHRISTIAN, MYRA Aceves/Sex: 1965 Male Med Rec #: [id number] Physician: Mike Montes MD Financial #: [id number] Pt. Type: I Room/Bed: [place] [address] Admit/Disch: 02/12/24 11:13:26 - Institution: Case Times [...] Hopkins Role Performed Anesthesiologist Surgeon - Primary Cut Out Press Operator - Primary Horse Wrangler Time In 02/12/24 13:26:00 02/12/24 13:45:00 02/12/24 13:26:00 Time Out 02/12/24 14:44:00 02/12/24 14:31:00 02/12/24 14:44:00 Procedure KNEE AMPUTATION KNEE AMPUTATION KNEE AMPUTATION BELOW(Right) BELOW(Right) BELOW(Right) Comments , anesthesia rail gang supervisor Last Modified By: Sara STERN, Tyree Ruiz RN, Tyree Mancera RN 02/12/24 14:44:09 02/12/24 14:44:09 02/12/24 14:44:09 Entry 4 Entry 5 Entry 6 Case Attendee Robinson STERN, Jenise E PerceAhsan chavis CST, [place] A Role Performed Cut Out Press Operator - Primary CUSTOMER SALES ADVISOR/SA Scrub - Primary Time In 02/12/24 13:26:00 02/12/24 13:26:00 02/12/24 13:26:00 Time Out 02/12/24 14:44:00 02/12/24 14:44:00 02/12/24 14:44:00 Procedure KNEE AMPUTATION KNEE AMPUTATION KNEE AMPUTATION BELOW(Right) BELOW(Right) BELOW(Right) Comments in orientation Last Modified By: Sara STERN, Tyree Ruiz RN, Tyree Ruiz RN, Tyree Hopkins 02/12/24 14:44:09 02/12/24 14:44:09 02/12/24 14:44:09 General Comments: Lima Puckett- student liaison officer, observing surgical case. Perioperative Protocols FT Pre-Care [...] Alexander Aburto CRNA, Given Participants Simon HERRERA, Sara Duenas RN, Robinson Gonzalez RN, Leonid Saenz CST, Wolf [...] KNEE AMPUTATION Primary Procedure Yes Primary Surgeon Simon HERRERA, Mike Weathers Start 02/12/24 13:54:00 Stop 02/12/24 14:36:00 Anesthesia [...] I70.261-Atherosclerosis Postop Same As Preop Yes of [place] arteries of extremities with gangrene, right leg. Postop Diagnosis I70.261-Atherosclerosis Outcomes Met? Yes of [place] arteries of extremities with gangrene, right leg. [...] and tissue Entry 1 Skin Integrity Intact, Sachse, Warm, & Skin Abnormality No Dry Outcomes Met? Yes Last Modified By: Tyree Ruiz RN 02/12/24 12:50:23 Post-Care Text: The patient is free from signs an (more content not included)... Normal [facility] PT & PTTon 02-13-2024 aPTT Coag (PPP) [Time] 27.5 second(s) Normal 25.1-36.5 [facility] Comment on above: Result Comment: Para [...] the same coagulation reagent and instrumentation as [facility]. Currently there are no coagulation studies available worldwide for children to 14 days, and no normal ranges. Heparin therapeutic range (represented by Anti-Factor Xa activity of 0.2 - 0.4 U/mL) corresponds to PTT of 56.6 - 109.0 sec. Performed By: #### 1 [id number] #### [facility] [address] [place] [address] INR Coag (PPP) [Relative time] 1.11 {INR} Invalid Interpretation Code [facility] Comment on above: Result Comment: INR results are specifically intended to assess patients stabilized on long-term Anticoagulation therapy suggested INR?s ?Less Intensive Anticoagulation? 2.0 ? 3.0 Conventional Range 3.0 ? 4.5 Performed By: #### 1 [id number] #### [facility] [address] [place] [address] PT Coag (PPP) [Time] 12.5 second(s) Normal 9.4-12.5 [facility] Comment on above: Result Comment: 15 [...] the same coagulation reagent and instrumentation as [facility]. Currently there are no coagulation studies available worldwide for children to 14 days, and no normal ranges. Performed By: #### 1 [id number] #### [facility] [address] [place] [address] Phosphoruson 02-13-2024 Phosphate [Mass/Vol] 2.5 mg/dL Normal 1.9-4.6 [facility] Comment on above: Performed By: #### 2 [id number] #### [facility] [address] [place] [address] RCOon 02-13-2024 # of Units 2 Invalid Interpretation Code [facility] Comment on above: Result Comment: 02/12 6:32 [id number] Blood product ready and called to David Hoskins at 02/13/2024 06:32:44 EDT by [id number]. Performed By: #### 1 [id number] #### [facility] [address] [place] [address] Date Required [id number] Invalid Interpretation Code [facility] Comment on above: Performed By: #### 1 [id number] #### [facility] [address] [place] [address] Order to Transfuse Yes Normal [facility] Comment on above: Performed By: #### 1 [id number] #### [facility] [address] [place] [address] Product Type None Required Invalid Interpretation Code [facility] Comment on above: Performed By: #### 1 [id number] #### [facility] [address] [place] [address] eGFRon 02-13-2024 eGFR 49 mL/min/1.73 m2 Low >=59 [facility] Comment on above: Order Comment: Order added by Discern Expert. Performed By: #### 1 [id number] #### [facility] [address] [place] [address] ABO/Rhon 02-12-2024 ABO/Rh Positive Invalid Interpretation Code [facility] Comment on above: Performed By: #### 2 [id number] #### [facility] [address] [place] [address] ABO/Rh History Checkon 02-11 ABO/Rh History Check Type verified by second s Normal [facility] Comment on above: Performed By: #### 1 [id number] #### [facility] [address] [place] [address] ABO/Rh Retypeon 02-12-2024 ABO/Rh Retype Interp Positive Invalid Interpretation Code [facility] Comment on above: Performed By: #### 1 [id number] #### [facility] [address] [place] [address] ABSCon 02-12-2024 ABSC Gel Interp Negative Normal [facility] Comment on above: Performed By: #### 1 [id number] #### [facility] [address] [place] [address] BLOOD BANKOrdered By: Rizwana Helm on 02-12-2024 ABO/Rh Retype Interp Positive Invalid Interpretation Code [facility] BB Subsection BLOOD BANKOrdered By: Cassie Gomez on 02-12-2024 ABO/Rh Interp Positive Invalid Interpretation Code [facility] BB Subsection ABSC Gel Interp Negative (02/12/24 12:00 PM) Normal [facility] BB Subsection BMPon 02-12-2024 Anion gap [Moles/Vol] 12 mmol/L Normal 6-16 [facility] Comment on above: Performed By: #### 2 [id number] #### [facility] [address] [place] [address] Calcium [Mass/Vol] 8.1 mg/dL Low 8.9-11.1 [facility] Comment on above: Performed By: #### 2 [id number] #### [facility] [address] [place] [address] Chloride [Moles/Vol] 102 mmol/L Normal 101-111 [facility] Comment on above: Performed By: #### 2 [id number] #### [facility] [address] [place] [address] CO2 [Moles/Vol] 26 mmol/L Normal 21-31 [facility] Comment on above: Performed By: #### 2 [id number] #### [facility] [address] [place] [address] Creatinine [Mass/Vol] 1.5 mg/dL High 0.5-1.3 [facility] Comment on above: Performed By: #### 2 [id number] #### [facility] [address] [place] [address] Glucose [Mass/Vol] 274 mg/dL High 55-199 [facility] Comment on above: Performed By: #### 2 [id number] #### [facility] [address] [place] [address] Potassium [Moles/Vol] 4.5 mmol/L Normal 3.5-5.3 [facility] Comment on above: Performed By: #### 2 [id number] #### [facility] [address] [place] [address] Sodium [Moles/Vol] 135 mmol/L Normal 135-145 [facility] Comment on above: Performed By: #### 2 [id number] #### [facility] [address] [place] [address] Urea nitrogen [Mass/Vol] 16 mg/dL Normal 5-21 [facility] Comment on above: Performed By: #### 2 [id number] #### [facility] [address] [place] [address] Urea nitrogen/Creatinine [Mass ratio] 11 No Units Normal 10-20 [facility] Comment on above: Performed By: #### 2 [id number] #### [facility] [address] [place] [address] Blood Bank ID#on 02-12-2024 BBID# [id number] Invalid Interpretation Code [facility] Comment on above: Performed By: #### 1 [id number] #### [facility] [address] [place] [address] CBC w/Indiceson 02-12-2024 Erythrocyte distribution width (RBC) [Ratio] 18.5 % High 10.9-14.2 [facility] Comment on above: Performed By: #### 2 [id number] #### [facility] [address] [place] [address] Hematocrit (Bld) [Volume fraction] 23.5 % Low 37.7-49.0 [facility] Comment on above: Performed By: #### 2 [id number] #### [facility] [address] [place] [address] Hemoglobin (Bld) [Mass/Vol] 7.2 g/dL Low 13.5-17.5 [facility] Comment on above: Performed By: #### 2 [id number] #### [facility] [address] [place] [address] Hypochromia Auto Ql (Bld) PRESENT Invalid Interpretation Code [facility] Comment on above: Performed By: #### 2 [id number] #### [facility] [address] [place] [address] MCH (RBC) [Entitic mass] 21.1 pg Low 27.0-34.0 [facility] Comment on above: Performed By: #### 2 [id number] #### [facility] [address] [place] [address] MCHC (RBC) [Mass/Vol] 30.7 g/dL Low 31.4-36.0 [facility] Comment on above: Performed By: #### 2 [id number] #### [facility] [address] [place] [address] MCV (RBC) [Entitic vol] 68.8 fL Low 80.0-100.0 [facility] Comment on above: Performed By: #### 2 [id number] #### [facility] [address] [place] [address] Microcytes Ql (Bld) PRESENT Invalid Interpretation Code [facility] Comment on above: Performed By: #### 2 [id number] #### [facility] [address] [place] [address] Platelet mean volume (Bld) [Entitic vol] 8.0 fL Normal 6.4-10.8 [facility] Comment on above: Performed By: #### 2 [id number] #### [facility] [address] [place] [address] Platelets (Bld) [#/Vol] 244.0 E9/L Normal 150.0-500. 0 [facility] Comment on above: Performed By: #### 2 [id number] #### [facility] [address] [place] [address] Polychromasia LM Ql (Bld) PRESENT Invalid Interpretation Code [facility] Comment on above: Performed By: #### 2 [id number] #### [facility] [address] [place] [address] RBC (Bld) [#/Vol] 3.4 E12/L Low 4.3-5.9 [facility] Comment on above: Performed By: #### 2 [id number] #### [facility] [address] [place] [address] RBC size Nom (Bld) NORMAL Invalid Interpretation Code [facility] Comment on above: Performed By: #### 2 [id number] #### [facility] [address] [place] [address] Target cells LM Ql (Bld) PRESENT Invalid Interpretation Code [facility] Comment on above: Performed By: #### 2 [id number] #### [facility] [address] [place] [address] WBC corrected for nucl RBC Auto (Bld) [#/Vol] 14.7 E9/L High 4.0-11.0 [facility] Comment on above: Performed By: #### 2 [id number] #### [facility] Laboratory [address] [place] [address] CHEMISTRYOrdered By: SYSTEM SYSTEM on 02-12-2024 Glucose [Mass/Vol] 580 mg/dL Invalid Interpretation Code 55 - 199 mg/dL Remisol [facility] Comment on above: Result Comment: Crit ical Result Verified by Repeat Analysis Critical Result [id number] Called to and read back by: DAVID WELSH at: 02/12/2024 21:01:57 by:BAB Capillary Glucose POCon Glucose [Mass/Vol] 441 mg/dL High 55-99 [facility] Comment on above: Result Comment: Deon hathaway RN/ Performed By: #### 2 [id number] #### [facility] [address] [place] [address] Glucose [Mass/Vol] mg/dL Abnormal 55-99 [facility] Comment on above: Result Comment: Deon ETIENNE Performed By: #### 2 [id number] #### [facility] [address] [place] [address] Glucose [Mass/Vol] mg/dL Abnormal 55-99 [facility] Comment on above: Result Comment: Deon hathaway RN/ Performed By: #### 2 [id number] #### [facility] [address] [place] [address] Glucose [Mass/Vol] 259 mg/dL High 55-99 [facility] Comment on above: Result Comment: Repe at Test Performed By: #### 2 [id number] #### [facility] [address] [place] [address] Glucose [Mass/Vol] 205 mg/dL High 55-99 [facility] Comment on above: Result Comment: Deon hathaway RN/ Performed By: #### 2 [id number] #### [facility] [address] [place] [address] Glucoseon 02-12-2024 Glucose [Mass/Vol] 580 mg/dL Abnormal 55-199 [facility] Comment on above: Result Comment: Crit ical Result Verified by Repeat Analysis Critical Result [id number] Called to and read back by: DAVID WELSH at: 02/12/2024 21:01:57 by:BRAVO Performed By: #### 2 [id number] #### [facility] [address] [place] [address] HEMATOLOGYOrdered By: SYSTEM SYSTEM on 02-12-2024 Polychromasia LM Ql (Bld) PRESENT *NA* (02/12/24 4:47 PM) Invalid Interpretation Code Remisol Heme Target cells LM Ql (Bld) PRESENT *NA* (02/12/24 4:47 PM) Invalid Interpretation Code Remisol Heme Hct & Hgbon 02-12-2024 Hematocrit (Bld) [Volume fraction] 22.7 % Low 37.7-49.0 [facility] Comment on above: Performed By: #### 1 [id number] #### [facility] [address] [place] [address] Hemoglobin (Bld) [Mass/Vol] 7.3 g/dL Low 13.5-17.5 [facility] Comment on above: Performed By: #### 1 [id number] #### [facility] [address] [place] [address] Main OR Intraoperative Recor don 02-12-2024 Main OR Intraoperative Record Main OR Intraoperative Record IntraOp Document Type FT Summary Primary Physician: Mike Montes MD Finalized Date/Time: 02/12/24 14:48:28 Pt. Name: MATTEO , MYRA Aceves/Sex: 1965 Male Med Rec #: [id number] Physician: Mike Montes MD Financial #: [id number] Pt. Type: A Room/Bed: [place] [address] Admit/Disch: 02/12/24 11:13:26 - Institution: Case Times FT Entry 1 Patient Times In Room 02/12/24 13:26:00 Out Room 02/12/24 14:45:00 Procedure Times Start 02/12/24 13:54:00 Stop 02/12/24 14:36:00 Anesthesia Times Start 02/12/24 13:26:00 Stop 02/12/24 14:45:00 Last Modified By: Sara STERN, Tyree Hopkins 02/12/24 14:44:51 Case Attendance FT Entry 1 Entry 2 Entry 3 Case Attendee Alexander Aburto CRNA, MD, Mike Ruiz RN, Tyree Hopkins Role Performed Anesthesiologist Surgeon - Primary Cut Out Press Operator - Primary Horse Wrangler Time In 02/12/24 13:26:00 02/12/24 13:45:00 02/12/24 13:26:00 Time Out 02/12/24 14:44:00 02/12/24 14:31:00 02/12/24 14:44:00 Procedure KNEE AMPUTATION KNEE AMPUTATION KNEE AMPUTATION BELOW(Right) BELOW(Right) BELOW(Right) Comments , anesthesia rail gang supervisor Last Modified By: Sara STERN, Tyree Ruiz RN, Tyree Mancera RN 02/12/24 14:44:09 02/12/24 14:44:09 02/12/24 14:44:09 Entry 4 Entry 5 Entry 6 Case Attendee Robinson STERN, Jenise Jaquez CST, Radha Corona Role Performed Cut Out Press Operator - Primary CUSTOMER SALES ADVISOR/SA Scrub - Primary Time In 02/12/24 13:26:00 02/12/24 13:26:00 02/12/24 13:26:00 Time Out 02/12/24 14:44:00 02/12/24 14:44:00 02/12/24 14:44:00 Procedure KNEE AMPUTATION KNEE AMPUTATION KNEE AMPUTATION BELOW(Right) BELOW(Right) BELOW(Right) Comments in orientation Last Modified By: Sara STERN, Tyree Ruiz RN, Tyree Mancera RN 02/12/24 14:44:09 02/12/24 14:44:09 02/12/24 14:44:09 General Comments: Lima Puckett- student liaison officer, observing surgical case. 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 Postop Diagnosis I70.261-Atherosclerosis Outcomes Met? Yes of [place] arteries of extremities with gangrene, right leg. [...] and tissue Entry 1 Skin Integrity Intact, Sachse, Warm, & Skin Abnormality No Dry Outcomes Met? Yes Last Modified By: Tyree Ruiz RN 02/12/24 12:50:23 Post-Care Text: The patient is free from signs and symptoms of injury caused by extraneous objects Patient Positioning FT Pre-Ca (more content not included)... Normal [facility] Main OR PACU I Recordon Main OR PACU I Record Main OR PACU I Rec ord PACU Phase I Document Type FT Summary Primary Physician: Mike Montes MD Finalized Date/Time: 02/12/24 17:14:55 Pt. Name: MYRA PICKARD SR/Sex: 1965 Male Med Rec #: [id number] Physician: Mike Montes MD Financial #: [id number] Pt. Type: A Room/Bed: [place] [address] Admit/Disch: 02/12/24 11:13:26 - Institution: Case Times [...] By: Lima Bolaños RN 02/12/24 17:14 Normal [facility] Main OR Preoperative Recordo n 02-12-2024 Main OR Preoperative Record Main OR Preoperative Record PreOp Document Type FT Summary Primary Physician: Mike Montes MD Finalized Date/Time: 02/12/24 13:26:50 Pt. Name: MATTEO CHRISTIANMYRA/Sex: 1965 Male Med Rec #: [id number] Physician: Mike Montes MD Financial #: [id number] Pt. Type: A Room/Bed: [place] [address] Admit/Disch: 02/12/24 11:13:26 - Institution: Case Times [...] By: Tyree Ruiz RN 02/12/24 13:26 Normal [facility] PT & PTTon 02-12-2024 aPTT Coag (PPP) [Time] 28.0 second(s) Normal 25.1-36.5 [facility] Comment on above: Result Comment: Para [...] the same coagulation reagent and instrumentation as [facility]. Currently there are no coagulation studies available worldwide for children to 14 days, and no normal ranges. Heparin therapeutic range (represented by Anti-Factor Xa activity of 0.2 - 0.4 U/mL) corresponds to PTT of 56.6 - 109.0 sec. Performed By: #### 1 [id number] #### [facility] [address] [place] [address] INR Coag (PPP) [Relative time] 1.12 {INR} Invalid Interpretation Code [facility] Comment on above: Result Comment: INR results are specifically intended to assess patients stabilized on long-term Anticoagulation therapy suggested INR?s ?Less Intensive Anticoagulation? 2.0 ? 3.0 Conventional Range 3.0 ? 4.5 Performed By: #### 1 [id number] #### [facility] [address] [place] [address] PT Coag (PPP) [Time] 12.6 second(s) High 9.4-12.5 [facility] Comment on above: Result Comment: 15 [...] the same coagulation reagent and instrumentation as [facility]. Currently there are no coagulation studies available worldwide for children to 14 days, and no normal ranges. Performed By: #### 1 [id number] #### [facility] [address] [place] [address] eGFRon 02-12-2024 eGFR 53 mL/min/1.73 m2 Low >=59 [facility] Comment on above: Order Comment: Order added by Discern Expert. Performed By: #### 1 [id number] #### [facility] [address] [place] [address] Activated partial thrombopla stin time (aPTT) in platelet poor plasma by coagulation aon 02-08-2024 aPTT Coag (PPP) [Time] 25.6 s 22.3-36.2 [facility] aPTT Coag (PPP) [Time] Activated partial thromboplastin time (aPTT) in platelet poor plasma by coagulation a 22.3-36.2 [facility] Basophils Auto (Bld) [#/Vol] on 02-08-2024 Basophils (Bld) [#/Vol] 0.1 10 3/uL 0.0-0.1 [facility] Basophils (Bld) [#/Vol] Automated basophil count 0.0-0.1 [facility] Basophils/100 WBC Auto (Bld) on 02-08-2024 Basophils/100 WBC (Bld) 0.7 % 0.2-2.0 [facility] Basophils/100 WBC (Bld) Automated basophil % 0.2-2.0 [facility] Eosinophils/100 WBC Auto (Bl d)on 02-08-2024 Eosinophils/100 WBC (Bld) 3.1 % 0.9-7.0 [facility] Eosinophils/100 WBC (Bld) Automated eosinophil % 0.9-7.0 [facility] Erythrocyte distribution wid th Auto (RBC) [Ratio]on 02-08-2024 Erythrocyte distribution width (RBC) [Ratio] 16.3 % High 11.0-15.0 [facility] Erythrocyte distribution width (RBC) [Ratio] Erythrocyte distribution width [Ratio] by Automated count High 11.0-15.0 [facility] Estimated glomerular filtrat ion rate (GFR) non- Americanon 02-08-2024 GFR/1.73 sq M.predicted among non-blacks MDRD (S/P/Bld) [Vol rate/Area] 38 mL/min/{1.73_m2} Low >=60 [facility] GFR/1.73 sq M.predicted among non-blacks MDRD (S/P/Bld) [Vol rate/Area] Estimated glomerular filtration rate (GFR) non- Low >=60 [facility] Hematocrit Auto (Bld) [Volum e fraction]on 02-08-2024 Hematocrit (Bld) [Volume fraction] 29.8 % Low 42.0-54.0 [facility] Hematocrit (Bld) [Volume fraction] Hematocrit [Volume Fraction] of Blood by Automated count Low 42.0-54.0 [facility] Hemoglobin [Mass/volume] in Bloodon 02-08-2024 Hemoglobin (Bld) [Mass/Vol] 9.1 g/dL Low 14.0-18.0 [facility] Hemoglobin (Bld) [Mass/Vol] Hemoglobin [Mass/volume] in Blood Low 14.0-18.0 [facility] INR in Platelet poor plasma by Coagulation assayon 02-08-2024 INR Coag (PPP) [Relative time] 1.02 {INR} [facility] Comment on above: DESIRED INR:2.0-3.0 CONDITIONS NOT LISTED BELOW2.5-3.5 FOR PROSTHETIC HEART VALVE REPLACEMENT2.5-3.5 RECURRENT THROMBOSIS INR Coag (PPP) [Relative time] INR in Platelet poor plasma by Coagulation assay [facility] Comment on above: DESIRED INR:2.0-3.0 CONDITIONS NOT LISTED BELOW2.5-3.5 FOR PROSTHETIC HEART VALVE REPLACEMENT2.5-3.5 RECURRENT THROMBOSIS Laboratory - Chemistry and C hemistry - challengeon 02-08-2024 Calcium [Mass/Vol] 9.4 mg/dL 8.5-10.1 [facility] Chloride [Moles/Vol] 99 mmol/L 98-107 [facility] CO2 [Moles/Vol] 28.9 mmol/L 21.0-32.0 [facility] Creatinine [Mass/Vol] 1.84 mg/dL High 0.70-1.30 [facility] GFR/1.73 sq M.predicted MDRD (S/P/Bld) [Vol rate/Area] 46 mL/min/{1.73_m2} Low >=60 [facility] Glucose [Mass/Vol] 184 mg/dL High 74-106 [facility] Potassium [Moles/Vol] 4.0 mmol/L 3.5-5.1 [facility] Sodium [Moles/Vol] 138 mmol/L 136-145 [facility] Urea nitrogen [Mass/Vol] 21.0 mg/dL High 7.0-18.0 [facility] Urea nitrogen/Creatinine [Mass ratio] 11.4 mg/mg [facility] Laboratory - Hematology and Cell countson 02-08-2024 Immature granulocytes/100 WBC (Bld) 0.4 % 0.0-0.5 [facility] Leukocytes [#/volume] correc jorge for nucleated erythrocytes in Blood by Automated counon 02-08-2024 WBC corrected for nucl RBC Auto (Bld) [#/Vol] 10.1 10 3/uL 4.0-11.0 [facility] WBC corrected for nucl RBC Auto (Bld) [#/Vol] Leukocytes [#/volume] corrected for nucleated erythrocytes in Blood by Automated coun 4.0-11.0 [facility] Lymphocytes Auto (Bld) [#/Vo l]on 02-08-2024 Lymphocytes (Bld) [#/Vol] 1.6 10 3/uL 1.2-3.8 [facility] Lymphocytes (Bld) [#/Vol] Lymphocytes [#/volume] in Blood by Automated count 1.2-3.8 [facility] Lymphocytes/100 WBC Auto (Bl d)on 02-08-2024 Lymphocytes/100 WBC (Bld) 15.6 % Low 20.5-60.0 [facility] Lymphocytes/100 WBC (Bld) Lymphocytes/100 leukocytes in Blood by Automated count Low 20.5-60.0 [facility] MCH Auto (RBC) [Entitic mass ]on 02-08-2024 MCH (RBC) [Entitic mass] 21.9 pg Low 25.9-34.0 [facility] MCH (RBC) [Entitic mass] MCH [Entitic mass] by Automated count Low 25.9-34.0 [facility] MCHC Auto (RBC) [Mass/Vol]on 02-08-2024 MCHC (RBC) [Mass/Vol] 30.5 g/dL 29.9-35.2 [facility] MCHC (RBC) [Mass/Vol] MCHC [Mass/volume] by Automated count 29.9-35.2 [facility] MCV Auto (RBC) [Entitic vol] on 02-08-2024 MCV (RBC) [Entitic vol] 71.8 fL Low 80.0-94.0 [facility] MCV (RBC) [Entitic vol] MCV [Entitic volume] by Automated count Low 80.0-94.0 [facility] Monocytes Auto (Bld) [#/Vol] on 02-08-2024 Monocytes (Bld) [#/Vol] 0.8 10 3/uL 0.3-0.8 [facility] Monocytes (Bld) [#/Vol] Automated blood monocyte count 0.3-0.8 [facility] Monocytes/100 WBC Auto (Bld) on 02-08-2024 Monocytes/100 WBC (Bld) 7.5 % 1.7-12.0 [facility] Monocytes/100 WBC (Bld) Automated monocyte % 1.7-12.0 [facility] Neutrophils Auto (Bld) [#/Vo l]on 02-08-2024 Neutrophils (Bld) [#/Vol] 7.4 10 3/uL High 1.4-6.5 [facility] Neutrophils (Bld) [#/Vol] Neutrophils [#/volume] in Blood by Automated count High 1.4-6.5 [facility] Neutrophils/100 WBC Auto (Bl d)on 02-08-2024 Neutrophils/100 WBC (Bld) 72.7 % 43.0-75.0 [facility] Neutrophils/100 WBC (Bld) Automated neutrophil % 43.0-75.0 [facility] No Panel Informationon 02-07 Eosinophils # (Auto) 0.3 10 3/uL 0.0-0.7 [facility] Immature Granulocyte # (Auto) 0.04 10 3/uL High 0.00-0.03 [facility] 11.4 [facility] 0.3 10 3/uL 0.0-0.7 [facility] 21.0 mg/dL High 7.0-18.0 [facility] 9.4 mg/dL 8.5-10.1 [facility] 99 mmol/L 98-107 [facility] 28.9 mmol/L 21.0-32.0 [facility] 0.04 10 3/uL High 0.00-0.03 [facility] 1.84 mg/dL High 0.70-1.30 [facility] 0.4 % 0.0-0.5 [facility] 46 Low >=60 [facility] 184 mg/dL High 74-106 [facility] 4.0 mmol/L 3.5-5.1 [facility] 138 mmol/L 136-145 [facility] Platelet mean volume Auto (B ld) [Entitic vol]on 02-08-2024 Platelet mean volume (Bld) [Entitic vol] 10.7 fL 9.5-13.5 [facility] Platelet mean volume (Bld) [Entitic vol] Platelet mean volume [Entitic volume] in Blood by Automated count .5-13.5 [facility] Platelets Auto (Bld) [#/Vol] on 02-08-2024 Platelets (Bld) [#/Vol] 322 10 3/uL 150-450 [facility] Platelets (Bld) [#/Vol] Platelets [#/volume] in Blood by Automated count 150-450 [facility] Prothrombin time (PT)on PT Coag (PPP) [Time] 10.8 s 9.0-11.6 [facility] PT Coag (PPP) [Time] Prothrombin time (PT) 9.0- 11.6 [facility] RBC Auto (Bld) [#/Vol]on RBC (Bld) [#/Vol] 4.15 10 6/uL Low 4.70-6.10 [facility] RBC (Bld) [#/Vol] Erythrocytes [#/volu me] in Blood by Automated count Low 4.70-6.10 [facility] Serum or plasma anion gap de terminationon 02-08-2024 Anion gap [Moles/Vol] 14.1 mmol/L [facility] Anion gap [Moles/Vol] Serum or plasma an ion gap determination [facility] ALL CBC WITH AUTO DIFFon BASOPHILS ABSOLUTE AUTO 0.1 [facility] Basophils/100 WBC (Bld) 1.2 % 0.2 - 2.0 % [facility] Eosinophils/100 WBC (Bld) 2.9 % 0.9 - 7.0 % [facility] Erythrocyte distribution width (RBC) [Ratio] 16.4 % High 11.0 - 15.0 % [facility] Hematocrit (Bld) [Volume fraction] 28.7 % Low 42.0 - 54.0 % [facility] Hemoglobin (Bld) [Mass/Vol] 8.7 g/dL Low 14.0 - 18.0 g/dL [facility] IMMATURE GRANULOCYTES ABS AUTO 0.06 High [facility] Immature granulocytes/100 WBC (Bld) 0.7 % High 0.0 - 0.5 % [facility] Interpretation and review of laboratory results Abnormal [facility] LYMPHOCYTES ABSOLUTE AUTO 1.8 [facility] Lymphocytes/100 WBC (Bld) 21.5 % 20.5 - 60.0 % [facility] MCH (RBC) [Entitic mass] 22.3 pg Low 25.9 - 34.0 pg [facility] MCHC (RBC) [Mass/Vol] 30.3 g/dL 29.9 - 35.2 g/dL [facility] MCV (RBC) [Entitic vol] 73.6 fL Low 80.0 - 94.0 fL [facility] MONOCYTES ABSOLUTE AUTO 0.7 [facility] Monocytes/100 WBC (Bld) 8.7 % 1.7 - 12.0 % [facility] NEUTROPHILS ABSOLUTE AUTO 5.4 [facility] Neutrophils/100 WBC (Bld) 65.0 % 43.0 - 75.0 % [facility] Platelet mean volume (Bld) [Entitic vol] 10.4 fL 9.5 - 13.5 fL [facility] PLT 397 [facility] RBC 3.90 Low [facility] WBC 8.3 [facility] Activated partial thrombopla stin time (aPTT) in platelet poor plasma by coagulation aon 02-01-2024 aPTT Coag (PPP) [Time] 25.3 s 22.3-36.2 [facility] aPTT Coag (PPP) [Time] Activated partial thromboplastin time (aPTT) in platelet poor plasma by coagulation a 22.3-36.2 [facility] Basophils Auto (Bld) [#/Vol] on 02-01-2024 Basophils (Bld) [#/Vol] 0.1 10 3/uL 0.0-0.1 [facility] Basophils (Bld) [#/Vol] Automated basophil count 0.0-0.1 [facility] Basophils/100 WBC Auto (Bld) on 02-01-2024 Basophils/100 WBC (Bld) 1.2 % 0.2-2.0 [facility] Basophils/100 WBC (Bld) Automated basophil % 0.2-2.0 [facility] Eosinophils/100 WBC Auto (Bl d)on 02-01-2024 Eosinophils/100 WBC (Bld) 2.9 % 0.9-7.0 [facility] Eosinophils/100 WBC (Bld) Automated eosinophil % 0.9-7.0 [facility] Erythrocyte distribution wid th Auto (RBC) [Ratio]on 02-01-2024 Erythrocyte distribution width (RBC) [Ratio] 16.4 % High 11.0-15.0 [facility] Erythrocyte distribution width (RBC) [Ratio] Erythrocyte distribution width [Ratio] by Automated count High 11.0-15.0 [facility] Estimated glomerular filtrat ion rate (GFR) non- Americanon 02-01-2024 GFR/1.73 sq M.predicted among non-blacks MDRD (S/P/Bld) [Vol rate/Area] 34 mL/min/{1.73_m2} Low >=60 [facility] GFR/1.73 sq M.predicted among non-blacks MDRD (S/P/Bld) [Vol rate/Area] Estimated glomerular filtration rate (GFR) non- Low >=60 [facility] Hematocrit Auto (Bld) [Volum e fraction]on 02-01-2024 Hematocrit (Bld) [Volume fraction] 28.7 % Low 42.0-54.0 [facility] Hematocrit (Bld) [Volume fraction] Hematocrit [Volume Fraction] of Blood by Automated count Low 42.0-54.0 [facility] Hemoglobin [Mass/volume] in Bloodon 02-01-2024 Hemoglobin (Bld) [Mass/Vol] 8.7 g/dL Low 14.0-18.0 [facility] Hemoglobin (Bld) [Mass/Vol] Hemoglobin [Mass/volume] in Blood Low 14.0-18.0 [facility] INR in Platelet poor plasma by Coagulation assayon 02-01-2024 INR Coag (PPP) [Relative time] 1.02 {INR} [facility] Comment on above: DESIRED INR:2.0-3.0 CONDITIONS NOT LISTED BELOW2.5-3.5 FOR PROSTHETIC HEART VALVE REPLACEMENT2.5-3.5 RECURRENT THROMBOSIS INR Coag (PPP) [Relative time] INR in Platelet poor plasma by Coagulation assay [facility] Comment on above: DESIRED INR:2.0-3.0 CONDITIONS NOT LISTED BELOW2.5-3.5 FOR PROSTHETIC HEART VALVE REPLACEMENT2.5-3.5 RECURRENT THROMBOSIS Laboratory - Chemistry and C hemistry - challengeon 02-01-2024 Calcium [Mass/Vol] 9.0 mg/dL 8.5-10.1 [facility] Chloride [Moles/Vol] 100 mmol/L 98-107 [facility] CO2 [Moles/Vol] 26.7 mmol/L 21.0-32.0 [facility] Creatinine [Mass/Vol] 2.03 mg/dL High 0.70-1.30 [facility] GFR/1.73 sq M.predicted MDRD (S/P/Bld) [Vol rate/Area] 41 mL/min/{1.73_m2} Low >=60 [facility] Glucose [Mass/Vol] 268 mg/dL High 74-106 [facility] Potassium [Moles/Vol] 4.3 mmol/L 3.5-5.1 [facility] Sodium [Moles/Vol] 137 mmol/L 136-145 [facility] Urea nitrogen [Mass/Vol] 25.0 mg/dL High 7.0-18.0 [facility] Urea nitrogen/Creatinine [Mass ratio] 12.3 mg/mg [facility] Laboratory - Hematology and Cell countson 02-01-2024 Immature granulocytes/100 WBC (Bld) 0.7 % High 0.0-0.5 [facility] Leukocytes [#/volume] correc jorge for nucleated erythrocytes in Blood by Automated counon 02-01-2024 WBC corrected for nucl RBC Auto (Bld) [#/Vol] 8.3 10 3/uL 4.0-11.0 [facility] WBC corrected for nucl RBC Auto (Bld) [#/Vol] Leukocytes [#/volume] corrected for nucleated erythrocytes in Blood by Automated coun 4.0-11.0 [facility] Lymphocytes Auto (Bld) [#/Vo l]on 02-01-2024 Lymphocytes (Bld) [#/Vol] 1.8 10 3/uL 1.2-3.8 [facility] Lymphocytes (Bld) [#/Vol] Lymphocytes [#/volume] in Blood by Automated count 1.2-3.8 [facility] Lymphocytes/100 WBC Auto (Bl d)on 02-01-2024 Lymphocytes/100 WBC (Bld) 21.5 % 20.5-60.0 [facility] Lymphocytes/100 WBC (Bld) Lymphocytes/100 leukocytes in Blood by Automated count 20.5-60.0 [facility] MCH Auto (RBC) [Entitic mass ]on 02-01-2024 MCH (RBC) [Entitic mass] 22.3 pg Low 25.9-34.0 [facility] MCH (RBC) [Entitic mass] MCH [Entitic mass] by Automated count Low 25.9-34.0 [facility] MCHC Auto (RBC) [Mass/Vol]on 02-01-2024 MCHC (RBC) [Mass/Vol] 30.3 g/dL 29.9-35.2 [facility] MCHC (RBC) [Mass/Vol] MCHC [Mass/volume] by Automated count 29.9-35.2 [facility] MCV Auto (RBC) [Entitic vol] on 02-01-2024 MCV (RBC) [Entitic vol] 73.6 fL Low 80.0-94.0 [facility] MCV (RBC) [Entitic vol] MCV [Entitic volume] by Automated count Low 80.0-94.0 [facility] Monocytes Auto (Bld) [#/Vol] on 02-01-2024 Monocytes (Bld) [#/Vol] 0.7 10 3/uL 0.3-0.8 [facility] Monocytes (Bld) [#/Vol] Automated blood monocyte count 0.3-0.8 [facility] Monocytes/100 WBC Auto (Bld) on 02-01-2024 Monocytes/100 WBC (Bld) 8.7 % 1.7-12.0 [facility] Monocytes/100 WBC (Bld) Automated monocyte % 1.7-12.0 [facility] Neutrophils Auto (Bld) [#/Vo l]on 02-01-2024 Neutrophils (Bld) [#/Vol] 5.4 10 3/uL 1.4-6.5 [facility] Neutrophils (Bld) [#/Vol] Neutrophils [#/volume] in Blood by Automated count 1.4-6.5 [facility] Neutrophils/100 WBC Auto (Bl d)on 02-01-2024 Neutrophils/100 WBC (Bld) 65.0 % 43.0-75.0 [facility] Neutrophils/100 WBC (Bld) Automated neutrophil % 43.0-75.0 [facility] No Panel Informationon 01-31 Eosinophils # (Auto) 0.2 10 3/uL 0.0-0.7 [facility] Immature Granulocyte # (Auto) 0.06 10 3/uL High 0.00-0.03 [facility] 12.3 [facility] 25.0 mg/dL High 7.0-18.0 [facility] 0.2 10 3/uL 0.0-0.7 [facility] 9.0 mg/dL 8.5-10.1 [facility] 100 mmol/L 98-107 [facility] 26.7 mmol/L 21.0-32.0 [facility] 2.03 mg/dL High 0.70-1.30 [facility] 0.06 10 3/uL High 0.00-0.03 [facility] 41 Low >=60 [facility] 0.7 % High 0.0-0.5 [facility] 268 mg/dL High 74-106 [facility] 4.3 mmol/L 3.5-5.1 [facility] 137 mmol/L 136-145 [facility] Platelet mean volume Auto (B ld) [Entitic vol]on 02-01-2024 Platelet mean volume (Bld) [Entitic vol] 10.4 fL 9.5-13.5 [facility] Platelet mean volume (Bld) [Entitic vol] Platelet mean volume [Entitic volume] in Blood by Automated count 9.5-13.5 [facility] Platelets Auto (Bld) [#/Vol] on 02-01-2024 Platelets (Bld) [#/Vol] 397 10 3/uL 150-450 [facility] Platelets (Bld) [#/Vol] Platelets [#/volume] in Blood by Automated count 150-450 [facility] Prothrombin time (PT)on 01-04 PT Coag (PPP) [Time] 10.8 s 9.0-11.6 [facility] PT Coag (PPP) [Time] Prothrombin time (PT) 9.0- 11.6 [facility] RBC Auto (Bld) [#/Vol]on RBC (Bld) [#/Vol] 3.90 10 6/uL Low 4.70-6.10 [facility] RBC (Bld) [#/Vol] Erythrocytes [#/volu me] in Blood by Automated count Low 4.70-6.10 [facility] Serum or plasma anion gap de terminationon 02-01-2024 Anion gap [Moles/Vol] 14.6 mmol/L [facility] Anion gap [Moles/Vol] Serum or plasma an ion gap determination [facility] Provider Letteron 01-29-2024 Provider Letter Provider Letter January 29, 2024 [address]RA P[address]ARD [address] [place] [address] [address] [place] [address] : 1965 Dear Myra, We have been [...] [facility] [address], [address] [place] [address] Marquise [facility] Operative Reporton Operative Report Operative Report PREOPERATIVE [...] and then obtained a micro-access upsized to 5-Montene[place] sheath, placed the catheter in the abdominal [...] well. Mike Montes M.D. ca Dictated: 01/08/2024 [id number] Transcribed: 01/08/2024 [facility] Comment on above: Result Comment: [...] with any questions. Thank you! Marybeth Camarillo [facility] BMPon 01-08-2024 Anion gap [Moles/Vol] 13 mmol/L Normal 6-16 [facility] Comment on above: Performed By: #### 2 [id number] #### [facility] Laboratory [address] [place] [address] Calcium [Mass/Vol] 9.1 mg/dL Normal 8.9-11.1 [facility] Comment on above: Performed By: #### 2 [id number] #### [facility] [address] [place] [address] Chloride [Moles/Vol] 103 mmol/L Normal 101-111 [facility] Comment on above: Performed By: #### 2 [id number] #### [facility] [address] [place] [address] CO2 [Moles/Vol] 25 mmol/L Normal 21-31 [facility] Comment on above: Performed By: #### 2 [id number] #### [facility] [address] [place] [address] Creatinine [Mass/Vol] 1.9 mg/dL High 0.5-1.3 [facility] Comment on above: Performed By: #### 2 [id number] #### [facility] [address] [place] [address] Glucose [Mass/Vol] 138 mg/dL Normal 55-199 [facility] Comment on above: Performed By: #### 2 [id number] #### [facility] [address] [place] [address] Potassium [Moles/Vol] 4.2 mmol/L Normal 3.5-5.3 [facility] Comment on above: Performed By: #### 2 [id number] #### [facility] [address] [place] [address] Sodium [Moles/Vol] 137 mmol/L Normal 135-145 [facility] Comment on above: Performed By: #### 2 [id number] #### [facility] [address] [place] [address] Urea nitrogen [Mass/Vol] 26 mg/dL High 5-21 [facility] Comment on above: Performed By: #### 2 [id number] #### [facility] [address] [place] [address] Urea nitrogen/Creatinine [Mass ratio] 14 No Units Normal 10-20 [facility] Comment on above: Performed By: #### 2 [id number] #### [facility] [address] [place] [address] CBC w/ Auto Diffon 4 Basophils/100 WBC (Bld) 1.2 % Normal 0.0-2.0 [facility] Comment on above: Performed By: #### 2 [id number] #### [facility] [address] [place] [address] Basophils/Leukocytes Auto (Bld) [Pure # fraction] 0.1 E9/L Normal 0.0-0.2 [facility] Comment on above: Performed By: #### 2 [id number] #### [facility] [address] [place] [address] Eosinophils (Bld) [#/Vol] 0.4 E9/L Normal 0.0-0.5 [facility] Comment on above: Performed By: #### 2 [id number] #### [facility] [address] [place] [address] Eosinophils/100 WBC (Bld) 4.3 % Normal 0.0-8.0 [facility] Comment on above: Performed By: #### 2 [id number] #### [facility] [address] [place] [address] Erythrocyte distribution width (RBC) [Ratio] 17.3 % High 10.9-14.2 [facility] Comment on above: Performed By: #### 2 [id number] #### [facility] [address] [place] [address] Hematocrit (Bld) [Volume fraction] 26.8 % Low 37.7-49.0 [facility] Comment on above: Performed By: #### 2 [id number] #### [facility] [address] [place] [address] Hemoglobin (Bld) [Mass/Vol] 8.8 g/dL Low 13.5-17.5 [facility] Comment on above: Performed By: #### 2 [id number] #### [facility] [address] [place] [address] Hypochromia Auto Ql (Bld) PRESENT Invalid Interpretation Code [facility] Comment on above: Performed By: #### 2 [id number] #### [facility] [address] [place] [address] Lymphocytes (Bld) [#/Vol] 2.3 E9/L Normal 1.0-4.0 [facility] Comment on above: Performed By: #### 2 [id number] #### [facility] [address] [place] [address] Lymphocytes/100 WBC (Bld) 22.6 % Normal 14.0-50.0 [facility] Comment on above: Performed By: #### 2 [id number] #### [facility] [address] [place] [address] MCH (RBC) [Entitic mass] 24.5 pg Low 27.0-34.0 [facility] Comment on above: Performed By: #### 2 [id number] #### [facility] [address] [place] [address] MCHC (RBC) [Mass/Vol] 33.0 g/dL Normal 31.4-36.0 [facility] Comment on above: Performed By: #### 2 [id number] #### [facility] [address] [place] [address] MCV (RBC) [Entitic vol] 74.2 fL Low 80.0-100.0 [facility] Comment on above: Performed By: #### 2 [id number] #### [facility] [address] [place] [address] Microcytes Ql (Bld) PRESENT Invalid Interpretation Code [facility] Comment on above: Performed By: #### 2 [id number] #### [facility] [address] [place] [address] Monocytes (Bld) [#/Vol] 0.9 E9/L Normal 0.2-1.0 [facility] Comment on above: Performed By: #### 2 [id number] #### [facility] [address] [place] [address] Neutrophils (Bld) [#/Vol] 6.6 E9/L Normal 2.0-7.5 [facility] Comment on above: Performed By: #### 2 [id number] #### [facility] [address] [place] [address] Neutrophils/100 WBC (Bld) 63.4 % Normal 36.0-75.0 [facility] Comment on above: Performed By: #### 2 [id number] #### [facility] [address] [place] [address] Platelet 377.0 E9/L Normal 150.0-500. 0 [facility] Comment on above: Performed By: #### 2 [id number] #### [facility] [address] [place] [address] Platelet mean volume (Bld) [Entitic vol] 8.7 fL Normal 6.4-10.8 [facility] Comment on above: Performed By: #### 2 [id number] #### [facility] [address] [place] [address] RBC (Bld) [#/Vol] 3.6 E12/L Low 4.3-5.9 [facility] Comment on above: Performed By: #### 2 [id number] #### [facility] [address] [place] [address] RBC size Nom (Bld) SEE MORPHOLOGY Invalid Interpretation Code [facility] Comment on above: Performed By: #### 2 [id number] #### [facility] [address] [place] [address] WBC corrected for nucl RBC Auto (Bld) [#/Vol] 10.4 E9/L Normal 4.0-11.0 [facility] Comment on above: Performed By: #### 2 [id number] #### [facility] [address] [place] [address] Inpatient Clinical Summaryon 01-08-2024 Inpatient Clinical Summary Inpatient Clinical Summary [address] [id number] Clinical Summary Person Information: Name: MYRA PICKARD SR Age: 58 Years : 1965 Sex: Male PCP: TERESA LYNCH DO Marital Status: Race: White Ethnicity: Non- or Language: Belarusian Visit Id: Visit Reason: I70.261 Speciality: Acuity: Enc Type: Ambulatory/Same Day Surgery Med Service: Surgery Arrival: 01/08/2024 11:49:03 Discharge: Dispo Type: Address: [address] [place] [phone] Provider Notes: Diagnosis: Problems Active Gross hematuria [...] Follow up: With: Address: When: Mike Montes [address] [place], [place] [id number] Business (1) Comments: Call for followup appointment Type Location [facility] Office Visit [facility] 02/12/2024 1:15 PM 02/12/2024 1:30 PM Confirmed Patient Education Information: CV - Cardiovascular PCI Discharge Instructions (CUSTOM) Normal [facility] Inpatient Patient Summaryon 01-08-2024 Inpatient Patient Summary Inpatient Patient Summary [address] [id number] Patient Discharge Instructions PERSON INFORMATION [...] None Follow up: With: Address: When: [place] [address] Business (1) Comments: Call for followup appointment In the event that this physician does not participate in your insurance network, please consult with your insurance company to find a nearby participating provider. Type Location Start Finish State [place] Office Visit [facility] [place] 02/12/2024 1:15 PM 02/12/2024 1:30 PM Confirmed Comment: I, MATTEO CHRISTIAN, MYRA Daniel, have received the attached patient [...] Capsules By (more content not included)... Normal [facility] Interdisciplinary Note - Ayo singon 01-08-2024 Interdisciplinary [...] covered with cast padding and KATHERYN. Normal [facility] eGFRon 01-08-2024 eGFR 40 mL/min/1.73 m2 Low >=59 [facility] Comment on above: Order Comment: Order added by Discern Expert. Performed By: #### [id number] #### [facility] Laboratory [address] [place] [address] Cholesterol in LDL Calc [Mas s/Vol]on 12-31-2023 Cholesterol in LDL [Mass/Vol] 47.0 mg/dL [facility] Comment on above: <100 mg/dl [id number] 0-129 mg/dl NEAR OR ABOVE [id number] mg/dl BORDERLINE [id number] mg/dl HIGH>190 mg/dl VERY HIGH Cholesterol in VLDL Calc [Ma ss/Vol]on 12-31-2023 Cholesterol in VLDL [Mass/Vol] 54.0 mg/dL [facility] Erythrocyte distribution wid th Auto (RBC) [Ratio]on 12-31-2023 Erythrocyte distribution width (RBC) [Ratio] 15.9 % High 11.0-15.0 [facility] Estimated glomerular filtrat ion rate (GFR) non- Americanon 12-31-2023 GFR/1.73 sq M.predicted among non-blacks MDRD (S/P/Bld) [Vol rate/Area] 31 mL/min/{1.73_m2} Low >=60 [facility] Globulin Calc (S) [Mass/Vol] on 12-31-2023 Globulin (S) [Mass/Vol] 3.9 g/dL [facility] Glucose mean value [Mass/vol ume] in Blood Estimated from glycated hemoglobinon 12-31-2023 Average glucose Estimated from glycated hemoglobin (Bld) [Mass/Vol] 163 mg/dL [facility] Hematocrit Auto (Bld) [Volum e fraction]on 12-31-2023 Hematocrit (Bld) [Volume fraction] 25.6 % Low 42.0-54.0 [facility] Hemoglobin [Mass/volume] in Bloodon 12-31-2023 Hemoglobin (Bld) [Mass/Vol] 8.0 g/dL Low 14.0-18.0 [facility] Iron binding capacity [Mass/ volume] in Serum or Plasmaon 12-31-2023 Iron binding capacity [Mass/Vol] 286.0 ug/dL 250.0-450. 0 [facility] Iron saturation [Mass Fracti on] in Serum or Plasmaon 12-31-2023 Iron saturation [Mass fraction] 2.8 % [facility] Laboratory - Chemistry and C hemistry - challengeon 12-31-2023 Cobalamin (Vitamin B12) [Mass/Vol] 156.0 pg/mL Low 193.0-986. 0 [facility] Ferritin [Mass/Vol] 16.0 ng/mL Low 26.0-388.0 [facility] Iron [Mass/Vol] 8.0 ug/dL Low 65.0-175.0 [facility] Transferrin [Mass/Vol] 241 mg/dL 177-329 [facility] Comment on above: Performed at: - [address] [id number] Director: Uriel Borrero PhD, Phone: [phone] Albumin [Mass/Vol] 2.4 g/dL Low 3.4-5.0 [facility] ALP [Catalytic activity/Vol] 172 U/L High 46-116 [facility] ALT [Catalytic activity/Vol] 21 U/L 16-63 [facility] AST [Catalytic activity/Vol] 8 U/L Low 15-37 [facility] Bilirubin [Mass/Vol] 0.2 mg/dL 0.2-1.0 [facility] Calcium [Mass/Vol] 8.4 mg/dL Low 8.5-10.1 [facility] Chloride [Moles/Vol] 98 mmol/L 98-107 [facility] Cholesterol [Mass/Vol] 127 mg/dL <=200 [facility] Cholesterol in HDL [Mass/Vol] 26 mg/dL Low 40-60 [facility] Comment on above: > or =60 mg/dl - LOW CARDIOVASCULAR RISK<40 mg/dl - HIGH CARDIOVASCULAR RISK CO2 [Moles/Vol] 30.5 mmol/L 21.0-32.0 [facility] Creatinine [Mass/Vol] 2.22 mg/dL High 0.70-1.30 [facility] GFR/1.73 sq M.predicted MDRD (S/P/Bld) [Vol rate/Area] 37 mL/min/{1.73_m2} Low >=60 [facility] Glucose [Mass/Vol] 348 mg/dL High 74-106 [facility] Potassium [Moles/Vol] 3.9 mmol/L 3.5-5.1 [facility] Protein [Mass/Vol] 6.3 g/dL Low 6.4-8.2 [facility] Sodium [Moles/Vol] 137 mmol/L 136-145 [facility] Triglyceride [Mass/Vol] 270 mg/dL High <=150 [facility] TSH Qn 3.218 m[IU]/L 0.358-3.74 0 [facility] Urea nitrogen [Mass/Vol] 21.0 mg/dL High 7.0-18.0 [facility] Urea nitrogen/Creatinine [Mass ratio] 9.5 mg/mg [facility] Laboratory - Hematology and Cell countson 12-31-2023 HbA1c (Bld) [Mass fraction] 7.3 % High 4.5-6.2 [facility] Comment on above: ADA RECOMMENDED LIMI T 4.0 - 6.0ADA THERAPEUTIC TARGET < 7.0ACTION SUGGESTED> 7.0 Leukocytes [#/volume] correc jorge for nucleated erythrocytes in Blood by Automated counon 12-31-2023 WBC corrected for nucl RBC Auto (Bld) [#/Vol] 8.1 10 3/uL 4.0-11.0 [facility] MCH Auto (RBC) [Entitic mass ]on 12-31-2023 MCH (RBC) [Entitic mass] 24.3 pg Low 25.9-34.0 [facility] MCHC Auto (RBC) [Mass/Vol]on 12-31-2023 MCHC (RBC) [Mass/Vol] 31.3 g/dL 29.9-35.2 [facility] MCV Auto (RBC) [Entitic vol] on 12-31-2023 MCV (RBC) [Entitic vol] 77.8 fL Low 80.0-94.0 [facility] No Panel Informationon 12-30 Folate 5.6 ng/mL >3.0 [facility] Comment on above: A serum folate vivian ntration of less than 3.1 ng/mL isconsidered to represent clinical deficiency.Performed at: [facility] [id number] Director: Uriel Borrero PhD, Phone: [phone] 5.6 ng/mL >3.0 [facility] 241 mg/dL 177-329 [facility] 156.0 pg/mL Low 193.0-986. 0 [facility] 16.0 ng/mL Low 26.0-388.0 [facility] 8.0 ug/dL Low 65.0-175.0 [facility] Troponin I High Sensitivity 5.8 pg/mL 4.0-76.1 [facility] Comment on above: CUT-OFF POINTS HAVE [...] DIAGNOSTIC AND CLINICAL INFORMATION. 5.8 pg/mL 4.0-76.1 [facility] 3.218 u[iU]/mL 0.358-3.74 0 [facility] 7.3 % High 4.5-6.2 [facility] 127 mg/dL <=200 [facility] 26 mg/dL Low 40-60 [facility] 2.4 g/dL Low 3.4-5.0 [facility] 172 U/L High 46-116 [facility] 270 mg/dL High <=150 [facility] 21 U/L 16-63 [facility] 8 U/L Low 15-37 [facility] 9.5 [facility] 21.0 mg/dL High 7.0-18.0 [facility] 8.4 mg/dL Low 8.5-10.1 [facility] 98 mmol/L 98-107 [facility] 30.5 mmol/L 21.0-32.0 [facility] 2.22 mg/dL High 0.70-1.30 [facility] 37 Low >=60 [facility] 348 mg/dL High 74-106 [facility] 3.9 mmol/L 3.5-5.1 [facility] 137 mmol/L 136-145 [facility] 0.2 mg/dL 0.2-1.0 [facility] 6.3 g/dL Low 6.4-8.2 [facility] Platelet mean volume Auto (B ld) [Entitic vol]on 12-31-2023 Platelet mean volume (Bld) [Entitic vol] 10.4 fL 9.5-13.5 [facility] Platelets Auto (Bld) [#/Vol] on 12-31-2023 Platelets (Bld) [#/Vol] 297 10 3/uL 150-450 [facility] RBC Auto (Bld) [#/Vol]on RBC (Bld) [#/Vol] 3.29 10 6/uL Low 4.70-6.10 [facility] Serum or plasma albumin/glob ulin mass ratioon 12-31-2023 Albumin/Globulin [Mass ratio] 0.6 {ratio} [facility] Serum or plasma anion gap de terminationon 12-31-2023 Anion gap [Moles/Vol] 12.4 mmol/L [facility] Serum or plasma total choles terol/high density lipoprotein (HDL) cholesterol mass stone 12-31-2023 Cholesterol.total/Chol esterol in HDL [Mass ratio] 4.9 {ratio} [facility] Comment on above: 3.3 - 4.4 LOW RISK4. 4 - 7.1 AVERAGE RISK7.1 - 11.0 MODERATE RISK>11.0 HIGH RISK Basophils Auto (Bld) [#/Vol] on 12-30-2023 Basophils (Bld) [#/Vol] 0.1 10 3/uL 0.0-0.1 [facility] Basophils/100 WBC Auto (Bld) on 12-30-2023 Basophils/100 WBC (Bld) 0.7 % 0.2-2.0 [facility] Eosinophils/100 WBC Auto (Bl d)on 12-30-2023 Eosinophils/100 WBC (Bld) 2.3 % 0.9-7.0 [facility] Erythrocyte distribution wid th Auto (RBC) [Ratio]on 12-30-2023 Erythrocyte distribution width (RBC) [Ratio] 15.9 % High 11.0-15.0 [facility] Estimated glomerular filtrat ion rate (GFR) non- Americanon 12-30-2023 GFR/1.73 sq M.predicted among non-blacks MDRD (S/P/Bld) [Vol rate/Area] 30 mL/min/{1.73_m2} Low >=60 [facility] Hematocrit Auto (Bld) [Volum e fraction]on 12-30-2023 Hematocrit (Bld) [Volume fraction] 27.1 % Low 42.0-54.0 [facility] Hemoglobin [Mass/volume] in Bloodon 12-30-2023 Hemoglobin (Bld) [Mass/Vol] 8.5 g/dL Low 14.0-18.0 [facility] Laboratory - Chemistry and C hemistry - challengeon 12-30-2023 Calcium [Mass/Vol] 9.2 mg/dL 8.5-10.1 [facility] Chloride [Moles/Vol] 95 mmol/L Low 98-107 [facility] CO2 [Moles/Vol] 27.2 mmol/L 21.0-32.0 [facility] Creatinine [Mass/Vol] 2.23 mg/dL High 0.70-1.30 [facility] GFR/1.73 sq M.predicted MDRD (S/P/Bld) [Vol rate/Area] 37 mL/min/{1.73_m2} Low >=60 [facility] Glucose [Mass/Vol] 193 mg/dL High 74-106 [facility] Potassium [Moles/Vol] 3.6 mmol/L 3.5-5.1 [facility] Sodium [Moles/Vol] 132 mmol/L Low 136-145 [facility] Urea nitrogen [Mass/Vol] 22.0 mg/dL High 7.0-18.0 [facility] Urea nitrogen/Creatinine [Mass ratio] 9.9 mg/mg [facility] Laboratory - Hematology and Cell countson 12-30-2023 Immature granulocytes/100 WBC (Bld) 0.7 % High 0.0-0.5 [facility] Leukocytes [#/volume] correc jorge for nucleated erythrocytes in Blood by Automated counon 12-30-2023 WBC corrected for nucl RBC Auto (Bld) [#/Vol] 10.7 10 3/uL 4.0-11.0 [facility] Lymphocytes Auto (Bld) [#/Vo l]on 12-30-2023 Lymphocytes (Bld) [#/Vol] 2.3 10 3/uL 1.2-3.8 [facility] Lymphocytes/100 WBC Auto (Bl d)on 12-30-2023 Lymphocytes/100 WBC (Bld) 21.5 % 20.5-60.0 [facility] MCH Auto (RBC) [Entitic mass ]on 12-30-2023 MCH (RBC) [Entitic mass] 24.4 pg Low 25.9-34.0 [facility] MCHC Auto (RBC) [Mass/Vol]on 12-30-2023 MCHC (RBC) [Mass/Vol] 31.4 g/dL 29.9-35.2 [facility] MCV Auto (RBC) [Entitic vol] on 12-30-2023 MCV (RBC) [Entitic vol] 77.7 fL Low 80.0-94.0 [facility] Monocytes Auto (Bld) [#/Vol] on 12-30-2023 Monocytes (Bld) [#/Vol] 0.9 10 3/uL High 0.3-0.8 [facility] Monocytes/100 WBC Auto (Bld) on 12-30-2023 Monocytes/100 WBC (Bld) 8.4 % 1.7-12.0 [facility] Neutrophils Auto (Bld) [#/Vo l]on 12-30-2023 Neutrophils (Bld) [#/Vol] 7.1 10 3/uL High 1.4-6.5 [facility] Neutrophils/100 WBC Auto (Bl d)on 12-30-2023 Neutrophils/100 WBC (Bld) 66.4 % 43.0-75.0 [facility] No Panel Informationon 12-29 Troponin I High Sensitivity 5.7 pg/mL 4.0-76.1 [facility] Comment on above: CUT-OFF POINTS HAVE [...] DIAGNOSTIC AND CLINICAL INFORMATION. 5.7 pg/mL 4.0-76.1 [facility] Eosinophils # (Auto) 0.3 10 3/uL 0.0-0.7 [facility] Immature Granulocyte # (Auto) 0.07 10 3/uL High 0.00-0.03 [facility] 9.9 [facility] 22.0 mg/dL High 7.0-18.0 [facility] 0.3 10 3/uL 0.0-0.7 [facility] 9.2 mg/dL 8.5-10.1 [facility] 95 mmol/L Low 98-107 [facility] 27.2 mmol/L 21.0-32.0 [facility] 2.23 mg/dL High 0.70-1.30 [facility] 0.07 10 3/uL High 0.00-0.03 [facility] 37 Low >=60 [facility] 0.7 % High 0.0-0.5 [facility] 193 mg/dL High 74-106 [facility] 3.6 mmol/L 3.5-5.1 [facility] 132 mmol/L Low 136-145 [facility] Platelet mean volume Auto (B ld) [Entitic vol]on 12-30-2023 Platelet mean volume (Bld) [Entitic vol] 10.4 fL 9.5-13.5 [facility] Platelets Auto (Bld) [#/Vol] on 12-30-2023 Platelets (Bld) [#/Vol] 368 10 3/uL 150-450 [facility] RBC Auto (Bld) [#/Vol]on RBC (Bld) [#/Vol] 3.49 10 6/uL Low 4.70-6.10 [facility] Serum or plasma anion gap de terminationon 12-30-2023 Anion gap [Moles/Vol] 13.4 mmol/L [facility] Basophils Auto (Bld) [#/Vol] on 12-23-2023 Basophils (Bld) [#/Vol] 0.1 10 3/uL 0.0-0.1 [facility] Basophils/100 WBC Auto (Bld) on 12-23-2023 Basophils/100 WBC (Bld) 0.4 % 0.2-2.0 [facility] Eosinophils/100 WBC Auto (Bl d)on 12-23-2023 Eosinophils/100 WBC (Bld) 1.0 % 0.9-7.0 [facility] Erythrocyte distribution wid th Auto (RBC) [Ratio]on 12-23-2023 Erythrocyte distribution width (RBC) [Ratio] 16.4 % High 11.0-15.0 [facility] Estimated glomerular filtrat ion rate (GFR) non- Americanon 12-23-2023 GFR/1.73 sq M.predicted among non-blacks MDRD (S/P/Bld) [Vol rate/Area] 37 mL/min/{1.73_m2} Low >=60 [facility] Globulin Calc (S) [Mass/Vol] on 12-23-2023 Globulin (S) [Mass/Vol] 3.3 g/dL [facility] Hematocrit Auto (Bld) [Volum e fraction]on 12-23-2023 Hematocrit (Bld) [Volume fraction] 23.6 % Low 42.0-54.0 [facility] Comment on above: RESULTS CALLED TO MARYSE BOUDREAUX RN Hemoglobin [Mass/volume] in Bloodon 12-23-2023 Hemoglobin (Bld) [Mass/Vol] 7.1 g/dL Low 14.0-18.0 [facility] Laboratory - Chemistry and C hemistry - challengeon 12-23-2023 Albumin [Mass/Vol] 2.2 g/dL Low 3.4-5.0 [facility] ALP [Catalytic activity/Vol] 127 U/L High 46-116 [facility] ALT [Catalytic activity/Vol] 13 U/L Low 16-63 [facility] AST [Catalytic activity/Vol] 10 U/L Low 15-37 [facility] Bilirubin [Mass/Vol] 0.2 mg/dL 0.2-1.0 [facility] Calcium [Mass/Vol] 7.4 mg/dL Low 8.5-10.1 [facility] Chloride [Moles/Vol] 103 mmol/L 98-107 [facility] CO2 [Moles/Vol] 23.4 mmol/L 21.0-32.0 [facility] Creatinine [Mass/Vol] 1.88 mg/dL High 0.70-1.30 [facility] GFR/1.73 sq M.predicted MDRD (S/P/Bld) [Vol rate/Area] 45 mL/min/{1.73_m2} Low >=60 [facility] Glucose [Mass/Vol] 357 mg/dL High 74-106 [facility] Magnesium [Mass/Vol] 1.5 mg/dL Low 1.8-2.4 [facility] Potassium [Moles/Vol] 4.4 mmol/L 3.5-5.1 [facility] Protein [Mass/Vol] 5.5 g/dL Low 6.4-8.2 [facility] Sodium [Moles/Vol] 136 mmol/L 136-145 [facility] Urea nitrogen [Mass/Vol] 30.0 mg/dL High 7.0-18.0 [facility] Urea nitrogen/Creatinine [Mass ratio] 16.0 mg/mg [facility] Laboratory - Hematology and Cell countson 12-23-2023 Immature granulocytes/100 WBC (Bld) 0.9 % High 0.0-0.5 [facility] Leukocytes [#/volume] correc jorge for nucleated erythrocytes in Blood by Automated counon 12-23-2023 WBC corrected for nucl RBC Auto (Bld) [#/Vol] 13.3 10 3/uL High 4.0-11.0 [facility] Lymphocytes Auto (Bld) [#/Vo l]on 12-23-2023 Lymphocytes (Bld) [#/Vol] 2.1 10 3/uL 1.2-3.8 [facility] Lymphocytes/100 WBC Auto (Bl d)on 12-23-2023 Lymphocytes/100 WBC (Bld) 15.7 % Low 20.5-60.0 [facility] MCH Auto (RBC) [Entitic mass ]on 12-23-2023 MCH (RBC) [Entitic mass] 25.0 pg Low 25.9-34.0 [facility] MCHC Auto (RBC) [Mass/Vol]on 12-23-2023 MCHC (RBC) [Mass/Vol] 30.1 g/dL 29.9-35.2 [facility] MCV Auto (RBC) [Entitic vol] on 12-23-2023 MCV (RBC) [Entitic vol] 83.1 fL 80.0-94.0 [facility] Monocytes Auto (Bld) [#/Vol] on 12-23-2023 Monocytes (Bld) [#/Vol] 0.6 10 3/uL 0.3-0.8 [facility] Monocytes/100 WBC Auto (Bld) on 12-23-2023 Monocytes/100 WBC (Bld) 4.7 % 1.7-12.0 [facility] Neutrophils Auto (Bld) [#/Vo l]on 12-23-2023 Neutrophils (Bld) [#/Vol] 10.3 10 3/uL High 1.4-6.5 [facility] Neutrophils/100 WBC Auto (Bl d)on 12-23-2023 Neutrophils/100 WBC (Bld) 77.3 % High 43.0-75.0 [facility] No Panel Informationon 12-22 Eosinophils # (Auto) 0.1 10 3/uL 0.0-0.7 [facility] Immature Granulocyte # (Auto) 0.12 10 3/uL High 0.00-0.03 [facility] 1.5 mg/dL Low 1.8-2.4 [facility] 2.2 g/dL Low 3.4-5.0 [facility] 0.1 10 3/uL 0.0-0.7 [facility] 127 U/L High 46-116 [facility] 13 U/L Low 16-63 [facility] 10 U/L Low 15-37 [facility] 16.0 [facility] 0.12 10 3/uL High 0.00-0.03 [facility] 30.0 mg/dL High 7.0-18.0 [facility] 0.9 % High 0.0-0.5 [facility] 7.4 mg/dL Low 8.5-10.1 [facility] 103 mmol/L 98-107 [facility] 23.4 mmol/L 21.0-32.0 [facility] 1.88 mg/dL High 0.70-1.30 [facility] 45 Low >=60 [facility] 357 mg/dL High 74-106 [facility] 4.4 mmol/L 3.5-5.1 [facility] 136 mmol/L 136-145 [facility] 0.2 mg/dL 0.2-1.0 [facility] 5.5 g/dL Low 6.4-8.2 [facility] Platelet mean volume Auto (B ld) [Entitic vol]on 12-23-2023 Platelet mean volume (Bld) [Entitic vol] 10.3 fL 9.5-13.5 [facility] Platelets Auto (Bld) [#/Vol] on 12-23-2023 Platelets (Bld) [#/Vol] 373 10 3/uL 150-450 [facility] RBC Auto (Bld) [#/Vol]on RBC (Bld) [#/Vol] 2.84 10 6/uL Low 4.70-6.10 [facility] Serum or plasma albumin/glob ulin mass ratioon 12-23-2023 Albumin/Globulin [Mass ratio] 0.7 {ratio} [facility] Serum or plasma anion gap de terminationon 12-23-2023 Anion gap [Moles/Vol] 14.0 [facility] Basophils Auto (Bld) [#/Vol] on 12-22-2023 Basophils (Bld) [#/Vol] 0.0 10 3/uL 0.0-0.1 [facility] Basophils/100 WBC Auto (Bld) on 12-22-2023 Basophils/100 WBC (Bld) 0.2 % 0.2-2.0 [facility] Eosinophils/100 WBC Auto (Bl d)on 12-22-2023 Eosinophils/100 WBC (Bld) 0.1 % Low 0.9-7.0 [facility] Erythrocyte distribution wid th Auto (RBC) [Ratio]on 12-22-2023 Erythrocyte distribution width (RBC) [Ratio] 16.5 % High 11.0-15.0 [facility] Estimated glomerular filtrat ion rate (GFR) non- Americanon 12-22-2023 GFR/1.73 sq M.predicted among non-blacks MDRD (S/P/Bld) [Vol rate/Area] 23 mL/min/{1.73_m2} Low >=60 [facility] Globulin Calc (S) [Mass/Vol] on 12-22-2023 Globulin (S) [Mass/Vol] 3.8 g/dL [facility] Hematocrit Auto (Bld) [Volum e fraction]on 12-22-2023 Hematocrit (Bld) [Volume fraction] 25.4 % Low 42.0-54.0 [facility] Hemoglobin [Mass/volume] in Bloodon 12-22-2023 Hemoglobin (Bld) [Mass/Vol] 7.6 g/dL Low 14.0-18.0 [facility] Laboratory - Chemistry and C hemistry - challengeon 12-22-2023 Bilirubin Ql (U) Negative NEGATIVE [facility] Glucose (U) [Mass/Vol] mg/dL Abnormal NEGATIVE [facility] Ketones Ql (U) Negative NEGATIVE [facility] pH (U) 6.5 [pH] 5.0-9.0 [facility] Specific gravity (U) [Rel density] <=1.005 Abnormal 1.005-1.02 5 [facility] Urobilinogen Qn (U) 0.2 {Brendan'U}/dL 0.2-1.0 [facility] Calcium [Mass/Vol] 7.2 mg/dL Low 8.5-10.1 [facility] Chloride [Moles/Vol] 95 mmol/L Low 98-107 [facility] CO2 [Moles/Vol] 21.7 mmol/L 21.0-32.0 [facility] Creatinine [Mass/Vol] 2.80 mg/dL High 0.70-1.30 [facility] GFR/1.73 sq M.predicted MDRD (S/P/Bld) [Vol rate/Area] 28 mL/min/{1.73_m2} Low >=60 [facility] Glucose [Mass/Vol] 683 mg/dL High 74-106 [facility] Comment on above: RESULTS CALLED TO Me Faraz Pickard RN Potassium [Moles/Vol] 4.8 mmol/L 3.5-5.1 [facility] Sodium [Moles/Vol] 129 mmol/L Low 136-145 [facility] Urea nitrogen [Mass/Vol] 27.0 mg/dL High 7.0-18.0 [facility] Urea nitrogen/Creatinine [Mass ratio] 9.6 mg/mg [facility] Albumin [Mass/Vol] 2.3 g/dL Low 3.4-5.0 [facility] ALP [Catalytic activity/Vol] 143 U/L High 46-116 [facility] ALT [Catalytic activity/Vol] 15 U/L Low 16-63 [facility] AST [Catalytic activity/Vol] 9 U/L Low 15-37 [facility] Bilirubin [Mass/Vol] 0.2 mg/dL 0.2-1.0 [facility] Magnesium [Mass/Vol] 0.9 mg/dL Low 1.8-2.4 [facility] Comment on above: RESULTS CALLED TO FATIMAH SANTIAGO RN Natriuretic peptide B (Bld) [Mass/Vol] 322.0 pg/mL <=900.0 [facility] Protein [Mass/Vol] 6.1 g/dL Low 6.4-8.2 [facility] Laboratory - Hematology and Cell countson 12-22-2023 Immature granulocytes/100 WBC (Bld) 0.9 % High 0.0-0.5 [facility] - Specimen inform ationon 12-22-2023 Appearance (U) CLEAR CLEAR [facility] Color (U) LT. YELLOW YELLOW [facility] Laboratory - Urinalysison Leukocyte esterase Test strip Ql (U) Negative NEGATIVE [facility] Mucus Ql (Urine sed) NONE SEEN NONE SEEN [facility] Nitrite Ql (U) Negative NEGATIVE [facility] Protein Ql (U) Negative NEG/TRACE [facility] Leukocytes [#/volume] correc jorge for nucleated erythrocytes in Blood by Automated counon 12-22-2023 WBC corrected for nucl RBC Auto (Bld) [#/Vol] 11.7 10 3/uL High 4.0-11.0 [facility] Lymphocytes Auto (Bld) [#/Vo l]on 12-22-2023 Lymphocytes (Bld) [#/Vol] 0.9 10 3/uL Low 1.2-3.8 [facility] Lymphocytes/100 WBC Auto (Bl d)on 12-22-2023 Lymphocytes/100 WBC (Bld) 7.6 % Low 20.5-60.0 [facility] MCH Auto (RBC) [Entitic mass ]on 12-22-2023 MCH (RBC) [Entitic mass] 24.4 pg Low 25.9-34.0 [facility] MCHC Auto (RBC) [Mass/Vol]on 12-22-2023 MCHC (RBC) [Mass/Vol] 29.9 g/dL 29.9-35.2 [facility] MCV Auto (RBC) [Entitic vol] on 12-22-2023 MCV (RBC) [Entitic vol] 81.7 fL 80.0-94.0 [facility] Monocytes Auto (Bld) [#/Vol] on 12-22-2023 Monocytes (Bld) [#/Vol] 0.2 10 3/uL Low 0.3-0.8 [facility] Monocytes/100 WBC Auto (Bld) on 12-22-2023 Monocytes/100 WBC (Bld) 1.4 % Low 1.7-12.0 [facility] Neutrophils Auto (Bld) [#/Vo l]on 12-22-2023 Neutrophils (Bld) [#/Vol] 10.5 10 3/uL High 1.4-6.5 [facility] Neutrophils/100 WBC Auto (Bl d)on 12-22-2023 Neutrophils/100 WBC (Bld) 89.8 % High 43.0-75.0 [facility] No Panel Informationon 12-21 Urine Bacteria NONE SEEN #/HPF NONE SEEN [facility] Urine Occult Blood Negative NEGATIVE [facility] Urine Other Casts NONE SEEN #/LPF NONE SEEN [facility] Urine Other Crystals None Seen #/HPF None Seen [facility] Urine RBC 0-2 #/HPF 0-2 [facility] Urine Squamous Epithelial Cells NONE SEEN #/LPF NONE/RARE [facility] Urine WBC 0-2 #/HPF Abnormal NONE SEEN [facility] NONE SEEN #/LPF NONE/RARE [facility] None Seen #/HPF NONE SEEN [facility] Negative NEG/TRACE [facility] CLEAR CLEAR [facility] LT. YELLOW YELLOW [facility] >=1000 mg/dL Abnormal NEGATIVE [facility] NONE SEEN NONE SEEN [facility] 6.5 5.0-9.0 [facility] 0-2 #/HPF Abnormal NONE SEEN [facility] <=1.005 Abnormal 1.005-1.02 5 [facility] 0.2 EU/dL 0.2-1.0 [facility] 9.6 [facility] 27.0 mg/dL High 7.0-18.0 [facility] 7.2 mg/dL Low 8.5-10.1 [facility] 95 mmol/L Low 98-107 [facility] 21.7 mmol/L 21.0-32.0 [facility] 2.80 mg/dL High 0.70-1.30 [facility] 28 Low >=60 [facility] 683 mg/dL High 74-106 [facility] 4.8 mmol/L 3.5-5.1 [facility] 129 mmol/L Low 136-145 [facility] Eosinophils # (Auto) 0.0 10 3/uL 0.0-0.7 [facility] Immature Granulocyte # (Auto) 0.11 10 3/uL High 0.00-0.03 [facility] Phosphorus Level 2.7 mg/dL 2.6-4.7 [facility] 322.0 pg/mL <=900.0 [facility] 0.9 mg/dL Low 1.8-2.4 [facility] 2.7 mg/dL 2.6-4.7 [facility] 0.0 10 3/uL 0.0-0.7 [facility] 2.3 g/dL Low 3.4-5.0 [facility] 143 U/L High 46-116 [facility] 15 U/L Low 16-63 [facility] 9 U/L Low 15-37 [facility] 0.11 10 3/uL High 0.00-0.03 [facility] 0.9 % High 0.0-0.5 [facility] 0.2 mg/dL 0.2-1.0 [facility] 6.1 g/dL Low 6.4-8.2 [facility] [facility] mean volume Auto (B ld) [Entitic vol]on 12-22-2023 Platelet mean volume (Bld) [Entitic vol] 10.5 fL 9.5-13.5 [facility] Platelets Auto (Bld) [#/Vol] on 12-22-2023 Platelets (Bld) [#/Vol] 400 10 3/uL 150-450 [facility] RBC Auto (Bld) [#/Vol]on RBC (Bld) [#/Vol] 3.11 10 6/uL Low 4.70-6.10 [facility] Serum or plasma albumin/glob ulin mass ratioon 12-22-2023 Albumin/Globulin [Mass ratio] 0.6 {ratio} [facility] Serum or plasma anion gap de terminationon 12-22-2023 Anion gap [Moles/Vol] 17.1 mmol/L Fi [facility] Activated partial thrombopla stin time (aPTT) in platelet poor plasma by coagulation aon 12-21-2023 aPTT Coag (PPP) [Time] 26.6 s 22.3-36.2 [facility] Basophils Auto (Bld) [#/Vol] on 12-21-2023 Basophils (Bld) [#/Vol] 0.1 10 3/uL 0.0-0.1 [facility] Basophils/100 WBC Auto (Bld) on 12-21-2023 Basophils/100 WBC (Bld) 0.8 % 0.2-2.0 [facility] Eosinophils/100 WBC Auto (Bl d)on 12-21-2023 Eosinophils/100 WBC (Bld) 4.2 % 0.9-7.0 [facility] Erythrocyte distribution wid th Auto (RBC) [Ratio]on 12-21-2023 Erythrocyte distribution width (RBC) [Ratio] 16.6 % High 11.0-15.0 [facility] Estimated glomerular filtrat ion rate (GFR) non- Americanon 12-21-2023 GFR/1.73 sq M.predicted among non-blacks MDRD (S/P/Bld) [Vol rate/Area] 23 mL/min/{1.73_m2} Low >=60 [facility] Globulin Calc (S) [Mass/Vol] on 12-21-2023 Globulin (S) [Mass/Vol] 4.0 g/dL [facility] Hematocrit Auto (Bld) [Volum e fraction]on 12-21-2023 Hematocrit (Bld) [Volume fraction] 28.2 % Low 42.0-54.0 [facility] Hemoglobin [Mass/volume] in Bloodon 12-21-2023 Hemoglobin (Bld) [Mass/Vol] 8.6 g/dL Low 14.0-18.0 [facility] INR in Platelet poor plasma by Coagulation assayon 12-21-2023 INR Coag (PPP) [Relative time] 1.05 {INR} [facility] Comment on above: DESIRED INR:2.0-3.0 CONDITIONS NOT LISTED BELOW2.5-3.5 FOR PROSTHETIC HEART VALVE REPLACEMENT2.5-3.5 RECURRENT THROMBOSIS Laboratory - Chemistry and C hemistry - challengeon 12-21-2023 Albumin [Mass/Vol] 2.8 g/dL Low 3.4-5.0 [facility] ALP [Catalytic activity/Vol] 132 U/L High 46-116 [facility] ALT [Catalytic activity/Vol] 13 U/L Low 16-63 [facility] AST [Catalytic activity/Vol] 10 U/L Low 15-37 [facility] Bilirubin [Mass/Vol] 0.3 mg/dL 0.2-1.0 [facility] Calcium [Mass/Vol] 7.8 mg/dL Low 8.5-10.1 [facility] Chloride [Moles/Vol] 99 mmol/L 98-107 [facility] CO2 [Moles/Vol] 29.9 mmol/L 21.0-32.0 [facility] Creatinine [Mass/Vol] 2.79 mg/dL High 0.70-1.30 [facility] GFR/1.73 sq M.predicted MDRD (S/P/Bld) [Vol rate/Area] 29 mL/min/{1.73_m2} Low >=60 [facility] Glucose [Mass/Vol] 56 mg/dL Low 74-106 [facility] Lactate [Moles/Vol] 1.6 mmol/L 0.4-2.0 [facility] Natriuretic peptide B (Bld) [Mass/Vol] 222.0 pg/mL <=900.0 [facility] Potassium [Moles/Vol] 3.3 mmol/L Low 3.5-5.1 [facility] Protein [Mass/Vol] 6.8 g/dL 6.4-8.2 [facility] Sodium [Moles/Vol] 138 mmol/L 136-145 [facility] Urea nitrogen [Mass/Vol] 29.0 mg/dL High 7.0-18.0 [facility] Urea nitrogen/Creatinine [Mass ratio] 10.4 mg/mg [facility] Laboratory - Hematology and Cell countson 12-21-2023 Immature granulocytes/100 WBC (Bld) 1.0 % High 0.0-0.5 [facility] Leukocytes [#/volume] correc jorge for nucleated erythrocytes in Blood by Automated counon 12-21-2023 WBC corrected for nucl RBC Auto (Bld) [#/Vol] 12.6 10 3/uL High 4.0-11.0 [facility] Lymphocytes Auto (Bld) [#/Vo l]on 12-21-2023 Lymphocytes (Bld) [#/Vol] 3.4 10 3/uL 1.2-3.8 [facility] Lymphocytes/100 WBC Auto (Bl d)on 12-21-2023 Lymphocytes/100 WBC (Bld) 26.6 % 20.5-60.0 [facility] MCH Auto (RBC) [Entitic mass ]on 12-21-2023 MCH (RBC) [Entitic mass] 24.7 pg Low 25.9-34.0 [facility] MCHC Auto (RBC) [Mass/Vol]on 12-21-2023 MCHC (RBC) [Mass/Vol] 30.5 g/dL 29.9-35.2 [facility] MCV Auto (RBC) [Entitic vol] on 12-21-2023 MCV (RBC) [Entitic vol] 81.0 fL 80.0-94.0 [facility] Monocytes Auto (Bld) [#/Vol] on 12-21-2023 Monocytes (Bld) [#/Vol] 0.6 10 3/uL 0.3-0.8 [facility] Monocytes/100 WBC Auto (Bld) on 12-21-2023 Monocytes/100 WBC (Bld) 4.9 % 1.7-12.0 [facility] Neutrophils Auto (Bld) [#/Vo l]on 12-21-2023 Neutrophils (Bld) [#/Vol] 7.9 10 3/uL High 1.4-6.5 [facility] Neutrophils/100 WBC Auto (Bl d)on 12-21-2023 Neutrophils/100 WBC (Bld) 62.5 % 43.0-75.0 [facility] No Panel Informationon 12-20 Troponin I High Sensitivity 5.1 pg/mL 4.0-76.1 [facility] Comment on above: CUT-OFF POINTS HAVE [...] DIAGNOSTIC AND CLINICAL INFORMATION. 5.1 pg/mL 4.0-76.1 [facility] Eosinophils # (Auto) 0.5 10 3/uL 0.0-0.7 [facility] Immature Granulocyte # (Auto) 0.13 10 3/uL High 0.00-0.03 [facility] Venous Blood Partial Pressure CO2 39.8 mm[Hg] Low 40.0-52.0 [facility] Venous Blood pH 7.448 High 7.330-7.43 0 [facility] 222.0 pg/mL <=900.0 [facility] 1.6 mmol/L 0.4-2.0 [facility] 39.8 mm[Hg] Low 40.0-52.0 [facility] 7.448 High 7.330-7.43 0 [facility] 2.8 g/dL Low 3.4-5.0 [facility] 0.5 10 3/uL 0.0-0.7 [facility] 132 U/L High 46-116 [facility] 13 U/L Low 16-63 [facility] 10 U/L Low 15-37 [facility] 10.4 [facility] 0.13 10 3/uL High 0.00-0.03 [facility] 29.0 mg/dL High 7.0-18.0 [facility] 1.0 % High 0.0-0.5 [facility] 7.8 mg/dL Low 8.5-10.1 [facility] 99 mmol/L 98-107 [facility] 29.9 mmol/L 21.0-32.0 [facility] 2.79 mg/dL High 0.70-1.30 [facility] 29 Low >=60 [facility] 56 mg/dL Low 74-106 [facility] 3.3 mmol/L Low 3.5-5.1 [facility] 138 mmol/L 136-145 [facility] 0.3 mg/dL 0.2-1.0 [facility] 6.8 g/dL 6.4-8.2 [facility] No Panel InformationOrdered By: Марина Flores on 12-21-2023 Blood Culture 2 [facility] Blood Culture 1 [facility] Platelet mean volume Auto (B ld) [Entitic vol]on 12-21-2023 Platelet mean volume (Bld) [Entitic vol] 10.2 fL 9.5-13.5 [facility] Platelets Auto (Bld) [#/Vol] on 12-21-2023 Platelets (Bld) [#/Vol] 502 10 3/uL High 150-450 [facility] Prothrombin time (PT)on 12-03 PT Coag (PPP) [Time] 11.1 s 9.0-11.6 [facility] RBC Auto (Bld) [#/Vol]on RBC (Bld) [#/Vol] 3.48 10 6/uL Low 4.70-6.10 [facility] Serum or plasma albumin/glob ulin mass ratioon 12-21-2023 Albumin/Globulin [Mass ratio] 0.7 {ratio} [facility] Serum or plasma anion gap de terminationon 12-21-2023 Anion gap [Moles/Vol] 12.4 mmol/L [facility] L Normal [facility] Basophils Auto (Bld) [#/Vol] on 12-10-2023 Basophils (Bld) [#/Vol] 0.1 10 3/uL 0.0-0.1 [facility] Basophils/100 WBC Auto (Bld) on 12-10-2023 Basophils/100 WBC (Bld) 0.9 % 0.2-2.0 [facility] Eosinophils/100 WBC Auto (Bl d)on 12-10-2023 Eosinophils/100 WBC (Bld) 2.6 % 0.9-7.0 [facility] Erythrocyte distribution wid th Auto (RBC) [Ratio]on 12-10-2023 Erythrocyte distribution width (RBC) [Ratio] 17.7 % High 11.0-15.0 [facility] Estimated glomerular filtrat ion rate (GFR) non- Americanon 12-10-2023 GFR/1.73 sq M.predicted among non-blacks MDRD (S/P/Bld) [Vol rate/Area] 38 mL/min/{1.73_m2} Low >=60 [facility] Globulin Calc (S) [Mass/Vol] on 12-10-2023 Globulin (S) [Mass/Vol] 3.9 g/dL [facility] Hematocrit Auto (Bld) [Volum e fraction]on 12-10-2023 Hematocrit (Bld) [Volume fraction] 34.2 % Low 42.0-54.0 [facility] Hemoglobin [Mass/volume] in Bloodon 12-10-2023 Hemoglobin (Bld) [Mass/Vol] 10.5 g/dL Low 14.0-18.0 [facility] Laboratory - Chemistry and C hemistry - challengeon 12-10-2023 Albumin [Mass/Vol] 2.8 g/dL Low 3.4-5.0 [facility] ALP [Catalytic activity/Vol] 119 U/L High 46-116 [facility] ALT [Catalytic activity/Vol] 11 U/L Low 16-63 [facility] AST [Catalytic activity/Vol] 10 U/L Low 15-37 [facility] Bilirubin [Mass/Vol] 0.4 mg/dL 0.2-1.0 [facility] Calcium [Mass/Vol] 8.4 mg/dL Low 8.5-10.1 [facility] Chloride [Moles/Vol] 101 mmol/L 98-107 [facility] CO2 [Moles/Vol] 27.0 mmol/L 21.0-32.0 [facility] Creatinine [Mass/Vol] 1.83 mg/dL High 0.70-1.30 [facility] GFR/1.73 sq M.predicted MDRD (S/P/Bld) [Vol rate/Area] 46 mL/min/{1.73_m2} Low >=60 [facility] Glucose [Mass/Vol] 113 mg/dL High 74-106 [facility] Potassium [Moles/Vol] 3.3 mmol/L Low 3.5-5.1 [facility] Protein [Mass/Vol] 6.7 g/dL 6.4-8.2 [facility] Sodium [Moles/Vol] 134 mmol/L Low 136-145 [facility] Urea nitrogen [Mass/Vol] 21.0 mg/dL High 7.0-18.0 [facility] Urea nitrogen/Creatinine [Mass ratio] 11.5 mg/mg [facility] Laboratory - Hematology and Cell countson 12-10-2023 Immature granulocytes/100 WBC (Bld) 0.3 % 0.0-0.5 [facility] Leukocytes [#/volume] correc jorge for nucleated erythrocytes in Blood by Automated counon 12-10-2023 WBC corrected for nucl RBC Auto (Bld) [#/Vol] 9.8 10 3/uL 4.0-11.0 [facility] Lymphocytes Auto (Bld) [#/Vo l]on 12-10-2023 Lymphocytes (Bld) [#/Vol] 1.5 10 3/uL 1.2-3.8 [facility] Lymphocytes/100 WBC Auto (Bl d)on 12-10-2023 Lymphocytes/100 WBC (Bld) 15.8 % Low 20.5-60.0 [facility] MCH Auto (RBC) [Entitic mass ]on 12-10-2023 MCH (RBC) [Entitic mass] 25.1 pg Low 25.9-34.0 [facility] MCHC Auto (RBC) [Mass/Vol]on 12-10-2023 MCHC (RBC) [Mass/Vol] 30.7 g/dL 29.9-35.2 [facility] MCV Auto (RBC) [Entitic vol] on 12-10-2023 MCV (RBC) [Entitic vol] 81.6 fL 80.0-94.0 [facility] Monocytes Auto (Bld) [#/Vol] on 12-10-2023 Monocytes (Bld) [#/Vol] 1.2 10 3/uL High 0.3-0.8 [facility] Monocytes/100 WBC Auto (Bld) on 12-10-2023 Monocytes/100 WBC (Bld) 11.9 % 1.7-12.0 [facility] Neutrophils Auto (Bld) [#/Vo l]on 12-10-2023 Neutrophils (Bld) [#/Vol] 6.7 10 3/uL High 1.4-6.5 [facility] Neutrophils/100 WBC Auto (Bl d)on 12-10-2023 Neutrophils/100 WBC (Bld) 68.5 % 43.0-75.0 [facility] No Panel Informationon 12-09 Eosinophils # (Auto) 0.3 10 3/uL 0.0-0.7 [facility] Immature Granulocyte # (Auto) 0.03 10 3/uL 0.00-0.03 [facility] 2.8 g/dL Low 3.4-5.0 [facility] 0.3 10 3/uL 0.0-0.7 [facility] 119 U/L High 46-116 [facility] 11 U/L Low 16-63 [facility] 10 U/L Low 15-37 [facility] 11.5 [facility] 0.03 10 3/uL 0.00-0.03 [facility] 21.0 mg/dL High 7.0-18.0 [facility] 0.3 % 0.0-0.5 [facility] 8.4 mg/dL Low 8.5-10.1 [facility] 101 mmol/L 98-107 [facility] 27.0 mmol/L 21.0-32.0 [facility] 1.83 mg/dL High 0.70-1.30 [facility] 46 Low >=60 [facility] 113 mg/dL High 74-106 [facility] 3.3 mmol/L Low 3.5-5.1 [facility] 134 mmol/L Low 136-145 [facility] 0.4 mg/dL 0.2-1.0 [facility] 6.7 g/dL 6.4-8.2 [facility] Platelet mean volume Auto (B ld) [Entitic vol]on 12-10-2023 Platelet mean volume (Bld) [Entitic vol] 10.2 fL 9.5-13.5 [facility] Platelets Auto (Bld) [#/Vol] on 12-10-2023 Platelets (Bld) [#/Vol] 240 10 3/uL 150-450 [facility] RBC Auto (Bld) [#/Vol]on RBC (Bld) [#/Vol] 4.19 10 6/uL Low 4.70-6.10 [facility] Serum or plasma albumin/glob ulin mass ratioon 12-10-2023 Albumin/Globulin [Mass ratio] 0.7 {ratio} [facility] Serum or plasma anion gap de terminationon 12-10-2023 Anion gap [Moles/Vol] 9.3 mmol/L [facility] Basophils Auto (Bld) [#/Vol] on 12-09-2023 Basophils (Bld) [#/Vol] 0.1 10 3/uL 0.0-0.1 [facility] Basophils/100 WBC Auto (Bld) on 12-09-2023 Basophils/100 WBC (Bld) 1.0 % 0.2-2.0 [facility] Eosinophils/100 WBC Auto (Bl d)on 12-09-2023 Eosinophils/100 WBC (Bld) 1.6 % 0.9-7.0 [facility] Erythrocyte distribution wid th Auto (RBC) [Ratio]on 12-09-2023 Erythrocyte distribution width (RBC) [Ratio] 17.7 % High 11.0-15.0 [facility] Estimated glomerular filtrat ion rate (GFR) non- Americanon 12-09-2023 GFR/1.73 sq M.predicted among non-blacks MDRD (S/P/Bld) [Vol rate/Area] 31 mL/min/{1.73_m2} Low >=60 [facility] Fibrin D-dimer [Presence] in Platelet poor plasma by Latex agglutinationon 12-09-2023 Fibrin D-dimer LA Ql (PPP) 3.76 mg/L FEU High <=0.59 [facility] Comment on above: RESULTS CALLED TO [...] on 12-09-2023 Globulin (S) [Mass/Vol] 4.6 g/dL [facility] Hematocrit Auto (Bld) [Volum e fraction]on 12-09-2023 Hematocrit (Bld) [Volume fraction] 39.2 % Low 42.0-54.0 [facility] Hemoglobin [Mass/volume] in Bloodon 12-09-2023 Hemoglobin (Bld) [Mass/Vol] 12.2 g/dL Low 14.0-18.0 [facility] Laboratory - Chemistry and C hemistry - challengeon 12-09-2023 Lactate [Moles/Vol] 2.9 mmol/L High 0.4-2.0 [facility] Comment on above: RESULTS CALLED TO RM SHARPE RN Bilirubin Ql (U) Negative NEGATIVE [facility] Glucose (U) [Mass/Vol] 500 mg/dL Abnormal NEGATIVE [facility] Ketones Ql (U) Negative NEGATIVE [facility] pH (U) 6.5 [pH] 5.0-9.0 [facility] Specific gravity (U) [Rel density] 1.020 1.005-1.02 5 [facility] Urobilinogen Qn (U) 0.2 {Brendan'U}/dL 0.2-1.0 [facility] Albumin [Mass/Vol] 3.5 g/dL 3.4-5.0 [facility] ALP [Catalytic activity/Vol] 141 U/L High 46-116 [facility] ALT [Catalytic activity/Vol] 13 U/L Low 16-63 [facility] AST [Catalytic activity/Vol] 8 U/L Low 15-37 [facility] Bilirubin [Mass/Vol] 0.7 mg/dL 0.2-1.0 [facility] Calcium [Mass/Vol] 9.6 mg/dL 8.5-10.1 [facility] Chloride [Moles/Vol] 99 mmol/L 98-107 [facility] CO2 [Moles/Vol] 21.7 mmol/L 21.0-32.0 [facility] Creatinine [Mass/Vol] 2.17 mg/dL High 0.70-1.30 [facility] GFR/1.73 sq M.predicted MDRD (S/P/Bld) [Vol rate/Area] 38 mL/min/{1.73_m2} Low >=60 [facility] Glucose [Mass/Vol] 191 mg/dL High 74-106 [facility] Magnesium [Mass/Vol] 1.6 mg/dL Low 1.8-2.4 [facility] Potassium [Moles/Vol] 3.8 mmol/L 3.5-5.1 [facility] Protein [Mass/Vol] 8.1 g/dL 6.4-8.2 [facility] Sodium [Moles/Vol] 135 mmol/L Low 136-145 [facility] Urea nitrogen [Mass/Vol] 20.0 mg/dL High 7.0-18.0 [facility] Urea nitrogen/Creatinine [Mass ratio] 9.2 mg/mg [facility] Laboratory - Hematology and Cell countson 12-09-2023 Immature granulocytes/100 WBC (Bld) 0.3 % 0.0-0.5 [facility] Laboratory - Microbiology an d Antimicrobial susceptibilityon 12-09-2023 SARS-CoV-2 (COVID-19) RNA NELLY+probe Ql (Unsp spec) Negative NEGATIVE [facility] Comment on above: This test has [...] inform ationon 12-09-2023 Appearance (U) CLEAR CLEAR [facility] Color (U) YELLOW YELLOW [facility] Laboratory - Urinalysison Leukocyte esterase Test strip Ql (U) Negative NEGATIVE [facility] Nitrite Ql (U) Negative NEGATIVE [facility] Protein Ql (U) Negative NEG/TRACE [facility] Leukocytes [#/volume] correc jorge for nucleated erythrocytes in Blood by Automated counon 12-09-2023 WBC corrected for nucl RBC Auto (Bld) [#/Vol] 9.3 10 3/uL 4.0-11.0 [facility] Lymphocytes Auto (Bld) [#/Vo l]on 12-09-2023 Lymphocytes (Bld) [#/Vol] 1.5 10 3/uL 1.2-3.8 [facility] Lymphocytes/100 WBC Auto (Bl d)on 12-09-2023 Lymphocytes/100 WBC (Bld) 15.7 % Low 20.5-60.0 [facility] MCH Auto (RBC) [Entitic mass ]on 12-09-2023 MCH (RBC) [Entitic mass] 25.6 pg Low 25.9-34.0 [facility] MCHC Auto (RBC) [Mass/Vol]on 12-09-2023 MCHC (RBC) [Mass/Vol] 31.1 g/dL 29.9-35.2 [facility] MCV Auto (RBC) [Entitic vol] on 12-09-2023 MCV (RBC) [Entitic vol] 82.4 fL 80.0-94.0 [facility] Monocytes Auto (Bld) [#/Vol] on 12-09-2023 Monocytes (Bld) [#/Vol] 0.9 10 3/uL High 0.3-0.8 [facility] Monocytes/100 WBC Auto (Bld) on 12-09-2023 Monocytes/100 WBC (Bld) 9.1 % 1.7-12.0 [facility] Neutrophils Auto (Bld) [#/Vo l]on 12-09-2023 Neutrophils (Bld) [#/Vol] 6.7 10 3/uL High 1.4-6.5 [facility] Neutrophils/100 WBC Auto (Bl d)on 12-09-2023 Neutrophils/100 WBC (Bld) 72.3 % 43.0-75.0 [facility] No Panel Informationon 12-08 2.9 mmol/L High 0.4-2.0 [facility] Urine Microscopic Review NO [facility] Urine Occult Blood Negative NEGATIVE [facility] Negative NEG/TRACE [facility] NO [facility] CLEAR CLEAR [facility] YELLOW YELLOW [facility] 500 mg/dL Abnormal NEGATIVE [facility] 6.5 5.0-9.0 [facility] 1.020 1.005-1.02 5 [facility] 0.2 EU/dL 0.2-1.0 [facility] Eosinophils # (Auto) 0.2 10 3/uL 0.0-0.7 [facility] Immature Granulocyte # (Auto) 0.03 10 3/uL 0.00-0.03 [facility] Troponin I High Sensitivity 8.7 pg/mL 4.0-76.1 [facility] Comment on above: CUT-OFF POINTS HAVE [...] DIAGNOSTIC AND CLINICAL INFORMATION. 8.7 pg/mL 4.0-76.1 [facility] 1.6 mg/dL Low 1.8-2.4 [facility] 3.5 g/dL 3.4-5.0 [facility] 0.2 10 3/uL 0.0-0.7 [facility] 141 U/L High 46-116 [facility] 13 U/L Low 16-63 [facility] 8 U/L Low 15-37 [facility] 9.2 [facility] 0.03 10 3/uL 0.00-0.03 [facility] 20.0 mg/dL High 7.0-18.0 [facility] 0.3 % 0.0-0.5 [facility] 9.6 mg/dL 8.5-10.1 [facility] 99 mmol/L 98-107 [facility] 21.7 mmol/L 21.0-32.0 [facility] 2.17 mg/dL High 0.70-1.30 [facility] 38 Low >=60 [facility] 191 mg/dL High 74-106 [facility] 3.8 mmol/L 3.5-5.1 [facility] 135 mmol/L Low 136-145 [facility] 0.7 mg/dL 0.2-1.0 [facility] 8.1 g/dL 6.4-8.2 [facility] Platelet mean volume Auto (B ld) [Entitic vol]on 12-09-2023 Platelet mean volume (Bld) [Entitic vol] 10.7 fL 9.5-13.5 [facility] Platelets Auto (Bld) [#/Vol] on 12-09-2023 Platelets (Bld) [#/Vol] 294 10 3/uL 150-450 [facility] RBC Auto (Bld) [#/Vol]on RBC (Bld) [#/Vol] 4.76 10 6/uL 4.70-6.10 [facility] Serum or plasma albumin/glob ulin mass ratioon 12-09-2023 Albumin/Globulin [Mass ratio] 0.8 {ratio} [facility] Serum or plasma anion gap de terminationon 12-09-2023 Anion gap [Moles/Vol] 18.1 mmol/L [facility] Outside Operativeon 11-28-19 24 Outside Operative [id number]#[id number] Normal [facility] Physician Orderon 11-28-2023 Physician Order [id number]#1.00TIFF Normal [facility] Basophils Auto (Bld) [#/Vol] on 11-26-2023 Basophils (Bld) [#/Vol] 0.1 10 3/uL 0.0-0.1 [facility] Basophils/100 WBC Auto (Bld) on 11-26-2023 Basophils/100 WBC (Bld) 1.1 % 0.2-2.0 [facility] Eosinophils/100 WBC Auto (Bl d)on 11-26-2023 Eosinophils/100 WBC (Bld) 3.5 % 0.9-7.0 [facility] Erythrocyte distribution wid th Auto (RBC) [Ratio]on 11-26-2023 Erythrocyte distribution width (RBC) [Ratio] 20.0 % High 11.0-15.0 [facility] Estimated glomerular filtrat ion rate (GFR) non- Americanon 11-26-2023 GFR/1.73 sq M.predicted among non-blacks MDRD (S/P/Bld) [Vol rate/Area] 41 mL/min/{1.73_m2} Low >=60 [facility] Globulin Calc (S) [Mass/Vol] on 11-26-2023 Globulin (S) [Mass/Vol] 4.2 g/dL [facility] Hematocrit Auto (Bld) [Volum e fraction]on 11-26-2023 Hematocrit (Bld) [Volume fraction] 33.1 % Low 42.0-54.0 [facility] Hemoglobin [Mass/volume] in Bloodon 11-26-2023 Hemoglobin (Bld) [Mass/Vol] 9.8 g/dL Low 14.0-18.0 [facility] Laboratory - Chemistry and C hemistry - challengeon 11-26-2023 Albumin [Mass/Vol] 3.2 g/dL Low 3.4-5.0 [facility] ALP [Catalytic activity/Vol] 143 U/L High 46-116 [facility] ALT [Catalytic activity/Vol] 16 U/L 16-63 [facility] AST [Catalytic activity/Vol] 14 U/L Low 15-37 [facility] Bilirubin [Mass/Vol] 0.5 mg/dL 0.2-1.0 [facility] Calcium [Mass/Vol] 9.1 mg/dL 8.5-10.1 [facility] Chloride [Moles/Vol] 101 mmol/L 98-107 [facility] CO2 [Moles/Vol] 24.2 mmol/L 21.0-32.0 [facility] Creatinine [Mass/Vol] 1.72 mg/dL High 0.70-1.30 [facility] GFR/1.73 sq M.predicted MDRD (S/P/Bld) [Vol rate/Area] 50 mL/min/{1.73_m2} Low >=60 [facility] Glucose [Mass/Vol] 132 mg/dL High 74-106 [facility] Lactate [Moles/Vol] 3.6 mmol/L High 0.4-2.0 [facility] Comment on above: RESULTS CALLED TO DR CROOK/YASMIN Potassium [Moles/Vol] 3.7 mmol/L 3.5-5.1 [facility] Protein [Mass/Vol] 7.4 g/dL 6.4-8.2 [facility] Sodium [Moles/Vol] 138 mmol/L 136-145 [facility] Urea nitrogen [Mass/Vol] 26.0 mg/dL High 7.0-18.0 [facility] Urea nitrogen/Creatinine [Mass ratio] 15.1 mg/mg [facility] Laboratory - Hematology and Cell countson 11-26-2023 ESR (Bld) [Velocity] 96 mm/h High <=20 [facility] Immature granulocytes/100 WBC (Bld) 0.4 % 0.0-0.5 [facility] Leukocytes [#/volume] correc jorge for nucleated erythrocytes in Blood by Automated counon 11-26-2023 WBC corrected for nucl RBC Auto (Bld) [#/Vol] 9.1 10 3/uL 4.0-11.0 [facility] Lymphocytes Auto (Bld) [#/Vo l]on 11-26-2023 Lymphocytes (Bld) [#/Vol] 2.1 10 3/uL 1.2-3.8 [facility] Lymphocytes/100 WBC Auto (Bl d)on 11-26-2023 Lymphocytes/100 WBC (Bld) 23.4 % 20.5-60.0 [facility] MCH Auto (RBC) [Entitic mass ]on 11-26-2023 MCH (RBC) [Entitic mass] 24.8 pg Low 25.9-34.0 [facility] MCHC Auto (RBC) [Mass/Vol]on 11-26-2023 MCHC (RBC) [Mass/Vol] 29.6 g/dL Low 29.9-35.2 [facility] MCV Auto (RBC) [Entitic vol] on 11-26-2023 MCV (RBC) [Entitic vol] 83.8 fL 80.0-94.0 [facility] Monocytes Auto (Bld) [#/Vol] on 11-26-2023 Monocytes (Bld) [#/Vol] 0.8 10 3/uL 0.3-0.8 [facility] Monocytes/100 WBC Auto (Bld) on 11-26-2023 Monocytes/100 WBC (Bld) 8.5 % 1.7-12.0 [facility] Neutrophils Auto (Bld) [#/Vo l]on 11-26-2023 Neutrophils (Bld) [#/Vol] 5.7 10 3/uL 1.4-6.5 [facility] Neutrophils/100 WBC Auto (Bl d)on 11-26-2023 Neutrophils/100 WBC (Bld) 63.1 % 43.0-75.0 [facility] No Panel InformationOrdered By: HERNAN CROOK on 11-26-2023 Blood Culture 2 [facility] Blood Culture 1 [facility] No Panel Informationon 11-25 C-Reactive Protein, Quantitative <0.50 mg/dL <=0.50 [facility] Eosinophils # (Auto) 0.3 10 3/uL 0.0-0.7 [facility] Immature Granulocyte # (Auto) 0.04 10 3/uL High 0.00-0.03 [facility] Platelet mean volume Auto (B ld) [Entitic vol]on 11-26-2023 Platelet mean volume (Bld) [Entitic vol] 10.4 fL 9.5-13.5 [facility] Platelets Auto (Bld) [#/Vol] on 11-26-2023 Platelets (Bld) [#/Vol] 371 10 3/uL 150-450 [facility] RBC Auto (Bld) [#/Vol]on RBC (Bld) [#/Vol] 3.95 10 6/uL Low 4.70-6.10 [facility] Serum or plasma albumin/glob ulin mass ratioon 11-26-2023 Albumin/Globulin [Mass ratio] 0.8 {ratio} [facility] Serum or plasma anion gap de terminationon 11-26-2023 Anion gap [Moles/Vol] 16.5 mmol/L [facility] Progress Note-Physicianon Progress Note-Physician [id number] Normal [facility] Basophils Auto (Bld) [#/Vol] on 11-15-2023 Basophils (Bld) [#/Vol] 0.1 10 3/uL 0.0-0.1 [facility] Basophils/100 WBC Auto (Bld) on 11-15-2023 Basophils/100 WBC (Bld) 0.8 % 0.2-2.0 [facility] Eosinophils/100 WBC Auto (Bl d)on 11-15-2023 Eosinophils/100 WBC (Bld) 5.9 % 0.9-7.0 [facility] Erythrocyte distribution wid th Auto (RBC) [Ratio]on 11-15-2023 Erythrocyte distribution width (RBC) [Ratio] 20.6 % High 11.0-15.0 [facility] Estimated glomerular filtrat ion rate (GFR) non- Americanon 11-15-2023 GFR/1.73 sq M.predicted among non-blacks MDRD (S/P/Bld) [Vol rate/Area] 44 mL/min/{1.73_m2} Low >=60 [facility] Globulin Calc (S) [Mass/Vol] on 11-15-2023 Globulin (S) [Mass/Vol] 4.7 g/dL [facility] Hematocrit Auto (Bld) [Volum e fraction]on 11-15-2023 Hematocrit (Bld) [Volume fraction] 27.6 % Low 42.0-54.0 [facility] Hemoglobin [Mass/volume] in Bloodon 11-15-2023 Hemoglobin (Bld) [Mass/Vol] 8.5 g/dL Low 14.0-18.0 [facility] Laboratory - Chemistry and C hemistry - challengeon 11-15-2023 Albumin [Mass/Vol] 2.4 g/dL Low 3.4-5.0 [facility] ALP [Catalytic activity/Vol] 194 U/L High 46-116 [facility] ALT [Catalytic activity/Vol] 22 U/L 16-63 [facility] AST [Catalytic activity/Vol] 25 U/L 15-37 [facility] Bilirubin [Mass/Vol] 0.9 mg/dL 0.2-1.0 [facility] Calcium [Mass/Vol] 8.9 mg/dL 8.5-10.1 [facility] Chloride [Moles/Vol] 97 mmol/L Low 98-107 [facility] CO2 [Moles/Vol] 26.6 mmol/L 21.0-32.0 [facility] Creatinine [Mass/Vol] 1.63 mg/dL High 0.70-1.30 [facility] GFR/1.73 sq M.predicted MDRD (S/P/Bld) [Vol rate/Area] 53 mL/min/{1.73_m2} Low >=60 [facility] Glucose [Mass/Vol] 226 mg/dL High 74-106 [facility] Lactate [Moles/Vol] 1.4 mmol/L 0.4-2.0 [facility] Potassium [Moles/Vol] 4.1 mmol/L 3.5-5.1 [facility] Protein [Mass/Vol] 7.1 g/dL 6.4-8.2 [facility] Sodium [Moles/Vol] 135 mmol/L Low 136-145 [facility] Urea nitrogen [Mass/Vol] 24.0 mg/dL High 7.0-18.0 [facility] Urea nitrogen/Creatinine [Mass ratio] 14.7 mg/mg [facility] Laboratory - Hematology and Cell countson 11-15-2023 Immature granulocytes/100 WBC (Bld) 0.6 % High 0.0-0.5 [facility] Leukocytes [#/volume] correc jorge for nucleated erythrocytes in Blood by Automated counon 11-15-2023 WBC corrected for nucl RBC Auto (Bld) [#/Vol] 9.5 10 3/uL 4.0-11.0 [facility] Lymphocytes Auto (Bld) [#/Vo l]on 11-15-2023 Lymphocytes (Bld) [#/Vol] 1.3 10 3/uL 1.2-3.8 [facility] Lymphocytes/100 WBC Auto (Bl d)on 11-15-2023 Lymphocytes/100 WBC (Bld) 14.1 % Low 20.5-60.0 [facility] MCH Auto (RBC) [Entitic mass ]on 11-15-2023 MCH (RBC) [Entitic mass] 24.9 pg Low 25.9-34.0 [facility] MCHC Auto (RBC) [Mass/Vol]on 11-15-2023 MCHC (RBC) [Mass/Vol] 30.8 g/dL 29.9-35.2 [facility] MCV Auto (RBC) [Entitic vol] on 11-15-2023 MCV (RBC) [Entitic vol] 80.9 fL 80.0-94.0 [facility] Monocytes Auto (Bld) [#/Vol] on 11-15-2023 Monocytes (Bld) [#/Vol] 1.1 10 3/uL High 0.3-0.8 [facility] Monocytes/100 WBC Auto (Bld) on 11-15-2023 Monocytes/100 WBC (Bld) 11.9 % 1.7-12.0 [facility] Neutrophils Auto (Bld) [#/Vo l]on 11-15-2023 Neutrophils (Bld) [#/Vol] 6.4 10 3/uL 1.4-6.5 [facility] Neutrophils/100 WBC Auto (Bl d)on 11-15-2023 Neutrophils/100 WBC (Bld) 66.7 % 43.0-75.0 [facility] No Panel InformationOrdered By: Fely Marker on 11-15-2023 Blood Culture 2 [facility] Blood Culture 1 [facility] No Panel Informationon 11-14 Eosinophils # (Auto) 0.6 10 3/uL 0.0-0.7 [facility] Immature Granulocyte # (Auto) 0.06 10 3/uL High 0.00-0.03 [facility] Platelet mean volume Auto (B ld) [Entitic vol]on 11-15-2023 Platelet mean volume (Bld) [Entitic vol] 10.8 fL 9.5-13.5 [facility] Platelets Auto (Bld) [#/Vol] on 11-15-2023 Platelets (Bld) [#/Vol] 338 10 3/uL 150-450 [facility] RBC Auto (Bld) [#/Vol]on RBC (Bld) [#/Vol] 3.41 10 6/uL Low 4.70-6.10 [facility] Serum or plasma albumin/glob ulin mass ratioon 11-15-2023 Albumin/Globulin [Mass ratio] 0.5 {ratio} [facility] Serum or plasma anion gap de terminationon 11-15-2023 Anion gap [Moles/Vol] 15.5 mmol/L [facility] BASIC METABOLIC PANLon 11-13 Anion gap [Moles/Vol] 10 mmol/L Normal 5-15 [facility] Comment on above: Performed By: #### KENDALL AHUJA, , 2776-06 ####[facility] ([id number])[address], [place] [address] Calcium [Mass/Vol] 8.8 mg/dL Normal 8.5-10.5 [facility] Comment on above: Performed By: #### KENDALL AHUJA, , 2776-06 ####[facility] ([id number])[address], [address] [place] [address] Chloride [Moles/Vol] 99 mmol/L Normal 98-109 [facility] Comment on above: Performed By: #### KENDALL AHUJA, , 2776-06 ####[facility] ([id number])[address] [address] [place] [address] CO2 [Moles/Vol] 26 mmol/L Normal 22-32 [facility] Comment on above: Performed By: #### C KENDALL CANALES, , 2776-06 ####[facility] ([id number])[address] [address] [place] [address] Creatinine [Mass/Vol] 1.61 mg/dL High 0.60-1.30 [facility] Comment on above: Result Comment: METH OD TRACEABLE TO IDMS STANDARD Performed By: #### C ALLY [facility], , 2776-06 ####[facility] ([id number])[address] [address], [place] [address] GFR/1.73 sq M.predicted among non-blacks MDRD (S/P/Bld) [Vol rate/Area] 49 mL/min/{1.73_m2} Low >59 [facility] Comment on above: Result Comment: Reported eGFR is based on the CKD-EPI 2020 equation that does not use a race coefficient. Performed By: #### C KENDALL CANALES, , 2776-06 ####[facility] ([id number])[address] [address], [place] [address] Glucose [Mass/Vol] 184 mg/dL High 65-99 [facility] Comment on above: Performed By: #### C KENDALL CANALES, , 2776-06 ####[facility] ([id number])[address] [address] [place] [address] Potassium [Moles/Vol] 4.0 mmol/L Normal 3.5-5.0 [facility] Comment on above: Performed By: #### KENDALL AHUJA, , 2776-06 ####[facility] ([id number])[address] [place] [address] Sodium [Moles/Vol] 135 mmol/L Normal 134-146 [facility] Comment on above: Performed By: #### C ALLY, [facility], , 2776-06 ####[facility] ([id number])[address], [address] [place] [address] Urea nitrogen [Mass/Vol] 23 mg/dL Normal 5-23 [facility] Comment on above: Performed By: #### C ALLY, [facility], , 2776-06 ####[facility] ([id number])[address] [address] COMPLETE BLOOD COUNTon 11-13 Erythrocyte distribution width (RBC) [Ratio] 22.8 % High 11.5-15.0 [facility] Comment on above: Performed By: #### Snehal CANALES, [facility], , 2776-06 ####[facility] ([id number])[address] [address] [place] [address] Hematocrit (Bld) [Volume fraction] 25.1 % Low 39-49 [facility] Comment on above: Performed By: #### Snehal CANALES, [facility], , 2776-06 ####[facility] ([id number])[address] [address] Hemoglobin (Bld) [Mass/Vol] 8.1 g/dL Low 13.0-17.0 [facility] Comment on above: Performed By: #### Snehal CANALES, [facility], , 2776-06 ####[facility] ([id number])[address] [address] MCH (RBC) [Entitic mass] 25.1 pg Low 27-34 [facility] Comment on above: Performed By: #### Snehal CANALES, KENDALL, , 2776-06 ####[facility] ([id number])[address], [place] [address] MCHC (RBC) [Mass/Vol] 32.4 g/dL Normal 32-36 [facility] Comment on above: Performed By: #### Snehal CANALES, KENDALL, , 2776-06 ####[facility] ([id number])[address], [address] [place] [address] MCV (RBC) [Entitic vol] 77 fL Low 80-100 [facility] Comment on above: Performed By: #### Snehal CANALES, KENDALL, , 2776-06 ####[facility] ([id number])[address], [place] [address] Platelet mean volume (Bld) [Entitic vol] 8.8 fL Normal 7-12 [facility] Comment on above: Performed By: #### KENDALL AHUJA, , 2776-06 ####[facility] ([id number])[address] [address] [place] [address] Platelets (Bld) [#/Vol] 232 10*3/uL Normal 150-450 [facility] Comment on above: Performed By: #### KENDALL AHUJA, , 2776-06 ####[facility] ([id number])[address] [address], [place] [address] RBC COUNT 3.25 X10E12/L Low 4.10-5.70 [facility] Comment on above: Performed By: #### Snehal CANALES, BMP, , 2776-06 ####[facility] ([id number])[address] [address] [place] [address] WBC (Bld) [#/Vol] 8.4 10*3/uL Normal 4.0-11.0 [facility] Comment on above: Performed By: #### Snehal CANALES BMP, , 2776-06 ####[facility] ([id number])[address] [place] [address] Glucose Glucometer (BldC) [M ass/Vol]on 11-14-2023 Glucose [Mass/Vol] 173 mg/dL High 65-99 [facility] Glucose [Mass/Vol] 279 mg/dL High 65-99 [facility] Glucose [Mass/Vol] 249 mg/dL High 65-99 [facility] MAGNESIUMon 11-14-2023 Magnesium [Mass/Vol] 2.1 mg/dL Normal 1.8-2.6 [facility] Comment on above: Performed By: #### 1 9123-9 ####[facility] ([id number])[address], [place] [address] Magnesium [Mass/Vol] mg/dL Critically low 1.8-2.6 [facility] Comment on above: Performed By: #### 1 9123-9 ####[facility] ([id number])[address], [place] [address] Magnesium [Mass/Vol] 1.7 mg/dL Low 1.8-2.6 [facility] Comment on above: Performed By: #### C KENDALL CANALES, , 1 ####[facility] ([id number])[address], [address], [place] [address] PHOSPHORUSon 11-14-2023 Phosphate [Mass/Vol] 3.6 mg/dL Normal 2.4-4.9 [facility] Comment on above: Performed By: #### C KENDALL CANALES, , 1 ####[facility] ([id number])[address], [place] [address] BASIC METABOLIC PANLon 11-12 Anion gap [Moles/Vol] 10 mmol/L Normal 5-15 [facility] Comment on above: Performed By: #### C ALLY, BMP, , 2776-06 ####[facility] ([id number])[address] [address] [place] [address] Calcium [Mass/Vol] 8.9 mg/dL Normal 8.5-10.5 [facility] Comment on above: Performed By: #### C ALLY, BMP, , 2776-06 ####[facility] ([id number])[address] [address] [place] [address] Chloride [Moles/Vol] 98 mmol/L Normal 98-109 [facility] Comment on above: Performed By: #### Snehal CANALES, KENDALL, , 2776-06 ####[facility] ([id number])[address] [address], [place] [address] CO2 [Moles/Vol] 27 mmol/L Normal 22-32 [facility] Comment on above: Performed By: #### Snehal CANALES, KENDALL, , 2776-06 ####[facility] ([id number])[address] [address] [place] [address] Creatinine [Mass/Vol] 1.47 mg/dL High 0.60-1.30 [facility] Comment on above: Result Comment: METH OD TRACEABLE TO IDMS STANDARD Performed By: #### C ALLY, BMP, , 2776-06 ####[facility] ([id number])[address] [address] [place] [address] GFR/1.73 sq M.predicted among non-blacks MDRD (S/P/Bld) [Vol rate/Area] 55 mL/min/{1.73_m2} Low >59 [facility] Comment on above: Result Comment: Reported eGFR is based on the CKD-EPI 2020 equation that does not use a race coefficient. Performed By: #### C BC, BMP, , 2776-06 ####[facility] ([id number])[address] [place] [address] Glucose [Mass/Vol] 164 mg/dL High 65-99 [facility] Comment on above: Performed By: #### C KENDALL CNAALES, , 2776-06 ####[facility] ([id number])[address] [place] [address] Potassium [Moles/Vol] 3.8 mmol/L Normal 3.5-5.0 [facility] Comment on above: Performed By: #### C KENDALL CANALES, , 2776-06 ####[facility] ([id number])[address] [place] [address] Sodium [Moles/Vol] 135 mmol/L Normal 134-146 [facility] Comment on above: Performed By: #### KENDALL AHUJA, , 2776-06 ####[facility] ([id number])[address] [place] [address] Urea nitrogen [Mass/Vol] 26 mg/dL High 5-23 [facility] Comment on above: Performed By: #### C KENDALL CANALES, , 2776-06 ####[facility] ([id number])[address], [place] [address] COMPLETE BLOOD COUNTon 11-12 Erythrocyte distribution width (RBC) [Ratio] 23.2 % High 11.5-15.0 [facility] Comment on above: Performed By: #### C KENDALL CANALES, , 2776-06 ####[facility] ([id number])[address] [place] [address] Hematocrit (Bld) [Volume fraction] 24.7 % Low 39-49 [facility] Comment on above: Performed By: #### C KENDALL CANALES, , 2776-06 ####[facility] ([id number])[address], [place] [address] Hemoglobin (Bld) [Mass/Vol] 8.2 g/dL Low 13.0-17.0 [facility] Comment on above: Performed By: #### Snehal CANALES, [facility], , 2776-06 ####[facility] ([id number])[address] [place] [address] MCH (RBC) [Entitic mass] 25.7 pg Low 27-34 [facility] Comment on above: Performed By: #### Snehal CANALES, [facility], , 2776-06 ####[facility] ([id number])[address] [address] [place] [address] MCHC (RBC) [Mass/Vol] 33.4 g/dL Normal 32-36 [facility] Comment on above: Performed By: #### Snehal CANALES, [facility], , 2776-06 ####[facility] ([id number])[address] [address] [place] [address] MCV (RBC) [Entitic vol] 77 fL Low 80-100 [facility] Comment on above: Performed By: #### KENDALL AHUJA, , 2776-06 ####[facility] ([id number])[address] [address], [place] [address] Platelet mean volume (Bld) [Entitic vol] 8.8 fL Normal 7-12 [facility] Comment on above: Performed By: #### Snehal CANALES, BMP, , 2776-06 ####[facility] ([id number])[address] [address], [place] [address] Platelets (Bld) [#/Vol] 207 10*3/uL Normal 150-450 [facility] Comment on above: Performed By: #### KENDALL AHUJA, , 2776-06 ####[facility] ([id number])[address], [place] [address] RBC COUNT 3.21 X10E12/L Low 4.10-5.70 [facility] Comment on above: Performed By: #### KENDALL AHUJA, , 2776-06 ####[facility] ([id number])[address], [address] [place] [address] WBC (Bld) [#/Vol] 8.1 10*3/uL Normal 4.0-11.0 [facility] Comment on above: Performed By: #### KENDALL AHUJA, , 2776-06 ####[facility] ([id number])[address], [address] [place] [address] Glucose Glucometer (BldC) [M ass/Vol]on 11-13-2023 Glucose [Mass/Vol] 230 mg/dL High 65-99 [facility] Glucose [Mass/Vol] 225 mg/dL High 65-99 [facility] Glucose [Mass/Vol] 331 mg/dL High 65-99 [facility] Glucose [Mass/Vol] 190 mg/dL High 65-99 [facility] MAGNESIUMon 11-13-2023 Magnesium [Mass/Vol] 2.1 mg/dL Normal 1.8-2.6 [facility] Comment on above: Performed By: #### KENDALL AHUJA, , 2776-06 ####[facility] ([id number])[address], [address] [place] [address] PHOSPHORUSon 11-13-2023 Phosphate [Mass/Vol] 3.8 mg/dL Normal 2.4-4.9 [facility] Comment on above: Performed By: #### KENDALL AHUJA, , 2776-06 ####[facility] ([id number])[address] [place] [address] BASIC METABOLIC PANLon 11-11 Anion gap [Moles/Vol] 11 mmol/L Normal 5-15 [facility] Comment on above: Performed By: #### C ALLY, BMP #### [facility] ([id number]) [address] [place] [address] Calcium [Mass/Vol] 9.0 mg/dL Normal 8.5-10.5 [facility] Comment on above: Performed By: #### C ALLY, BMP #### [facility] ([id number]) [address], [address] [place] [address] Chloride [Moles/Vol] 98 mmol/L Normal 98-109 [facility] Comment on above: Performed By: #### Snehal CANALES, BMP #### [facility] ([id number]) [address], [address] [place] [address] CO2 [Moles/Vol] 25 mmol/L Normal 22-32 [facility] Comment on above: Performed By: #### C ALLY, BMP #### [facility] ([id number]) [address] [address] [place] [address] Creatinine [Mass/Vol] 1.40 mg/dL High 0.60-1.30 [facility] Comment on above: Result Comment: METH OD TRACEABLE TO IDMS STANDARD Performed By: #### C ALLY, BMP #### [facility] ([id number]) [address] [address] [place] [address] GFR/1.73 sq M.predicted among non-blacks MDRD (S/P/Bld) [Vol rate/Area] 58 mL/min/{1.73_m2} Low >59 [facility] Comment on above: Result Comment: Reported eGFR is based on the CKD-EPI 2020 equation that does not use a race coefficient. Performed By: #### C ALLY, BMP #### [facility] ([id number]) [address] [place] [address] Glucose [Mass/Vol] 194 mg/dL High 65-99 [facility] Comment on above: Performed By: #### C ALLY, BMP #### [facility] ([id number]) [address] [place] [address] Potassium [Moles/Vol] 4.0 mmol/L Normal 3.5-5.0 [facility] Comment on above: Performed By: #### C ALLY, BMP #### [facility] ([id number]) [address] [place] [address] Sodium [Moles/Vol] 134 mmol/L Normal 134-146 [facility] Comment on above: Performed By: #### C ALLY, BMP #### [facility] ([id number]) [address] [place] [address] Urea nitrogen [Mass/Vol] 23 mg/dL Normal 5-23 [facility] Comment on above: Performed By: #### C ALLY, BMP #### [facility] ([id number]) [address] [place] [address] COMPLETE BLOOD COUNTon 11-11 Erythrocyte distribution width (RBC) [Ratio] 24.1 % High 11.5-15.0 [facility] Comment on above: Performed By: #### C ALLY, BMP #### [facility] ([id number]) [address], [address] [place] [address] Hematocrit (Bld) [Volume fraction] 25.8 % Low 39-49 [facility] Comment on above: Performed By: #### C ALLY, BMP #### [facility] ([id number]) [address] [place] [address] Hemoglobin (Bld) [Mass/Vol] 8.6 g/dL Low 13.0-17.0 [facility] Comment on above: Performed By: #### C ALLY, BMP #### [facility] ([id number]) [address] [place] [address] MCH (RBC) [Entitic mass] 25.7 pg Low 27-34 [facility] Comment on above: Performed By: #### C ALLY, BMP #### [facility] ([id number]) [address] [place] [address] MCHC (RBC) [Mass/Vol] 33.5 g/dL Normal 32-36 [facility] Comment on above: Performed By: #### C ALLY, BMP #### [facility] ([id number]) [address] [place] [address] MCV (RBC) [Entitic vol] 77 fL Low 80-100 [facility] Comment on above: Performed By: #### C ALLY, BMP #### [facility] ([id number]) [address] [place] [address] Platelet mean volume (Bld) [Entitic vol] 9.2 fL Normal 7-12 [facility] Comment on above: Performed By: #### C ALLY, BMP #### [facility] ([id number]) [address], [address] [place] [address] Platelets (Bld) [#/Vol] 185 10*3/uL Normal 150-450 [facility] Comment on above: Performed By: #### C ALLY, BMP #### [facility] ([id number]) [address], [address] [place] [address] RBC COUNT 3.37 X10E12/L Low 4.10-5.70 [facility] Comment on above: Performed By: #### C ALLY, BMP #### [facility] ([id number]) [address], [address] [place] [address] WBC (Bld) [#/Vol] 10.0 10*3/uL Normal 4.0-11.0 [facility] Comment on above: Performed By: #### Snehal CANALES, BMP #### [facility] ([id number]) [address], [address] [place] [address] Glucose Glucometer (BldC) [M ass/Vol]on 11-12-2023 Glucose [Mass/Vol] 230 mg/dL High 65-99 [facility] Glucose [Mass/Vol] 280 mg/dL High 65-99 [facility] Glucose [Mass/Vol] 268 mg/dL High 65-99 [facility] Glucose [Mass/Vol] 220 mg/dL High 65-99 [facility] Glucose [Mass/Vol] 205 mg/dL High 65-99 [facility] MAGNESIUMon 11-12-2023 Magnesium [Mass/Vol] 1.8 mg/dL Normal 1.8-2.6 [facility] Comment on above: Performed By: #### Snehal CANALES, BMP #### [facility] ([id number]) [address] [place] [address] PHOSPHORUSon 11-12-2023 Phosphate [Mass/Vol] 3.8 mg/dL Normal 2.4-4.9 [facility] Comment on above: Performed By: #### Snehal CANALES, BMP #### [facility] ([id number]) [address], [address] [place] [address] BASIC METABOLIC PANLon 11-10 Anion gap [Moles/Vol] 8 mmol/L Normal 5-15 [facility] Comment on above: Performed By: #### Snehal CANALES, BMP #### [facility] ([id number]) [address], [address] [place] [address] Calcium [Mass/Vol] 8.7 mg/dL Normal 8.5-10.5 [facility] Comment on above: Performed By: #### C ALLY, BMP #### [facility] ([id number]) [address], [address] [place] [address] Chloride [Moles/Vol] 99 mmol/L Normal 98-109 [facility] Comment on above: Performed By: #### C ALLY, BMP #### [facility] ([id number]) [address], [address] [place] [address] CO2 [Moles/Vol] 26 mmol/L Normal 22-32 [facility] Comment on above: Performed By: #### C ALLY, BMP #### [facility] ([id number]) [address] [place] [address] Creatinine [Mass/Vol] 1.45 mg/dL High 0.60-1.30 [facility] Comment on above: Result Comment: METH OD TRACEABLE TO IDMS STANDARD Performed By: #### C ALLY, BMP #### [facility] ([id number]) [address] [place] [address] GFR/1.73 sq M.predicted among non-blacks MDRD (S/P/Bld) [Vol rate/Area] 56 mL/min/{1.73_m2} Low >59 [facility] Comment on above: Result Comment: Reported eGFR is based on the CKD-EPI 2020 equation that does not use a race coefficient. Performed By: #### C ALLY, BMP #### [facility] ([id number]) [address], [address] [place] [address] Glucose [Mass/Vol] 153 mg/dL High 65-99 [facility] Comment on above: Performed By: #### C ALLY, BMP #### [facility] ([id number]) [address], [address] [place] [address] Potassium [Moles/Vol] 3.9 mmol/L Normal 3.5-5.0 [facility] Comment on above: Performed By: #### C BC, BMP #### [facility] ([id number]) [address], [address] [place] [address] Sodium [Moles/Vol] 133 mmol/L Low 134-146 [facility] Comment on above: Performed By: #### C BC, BMP #### [facility] ([id number]) [address], [address] [place] [address] Urea nitrogen [Mass/Vol] 27 mg/dL High 5-23 [facility] Comment on above: Performed By: #### C ALLY, BMP #### [facility] ([id number]) [address], [address] [place] [address] COMPLETE BLOOD COUNTon 11-10 Erythrocyte distribution width (RBC) [Ratio] 24.2 % High 11.5-15.0 [facility] Comment on above: Performed By: #### C ALLY, BMP #### [facility] ([id number]) [address], [address] [place] [address] Hematocrit (Bld) [Volume fraction] 25.1 % Low 39-49 [facility] Comment on above: Performed By: #### C BC, BMP #### [facility] ([id number]) [address] [place] [address] Hemoglobin (Bld) [Mass/Vol] 8.2 g/dL Low 13.0-17.0 [facility] Comment on above: Performed By: #### C ALLY, BMP #### [facility] ([id number]) [address], [address] [place] [address] MCH (RBC) [Entitic mass] 25.5 pg Low 27-34 [facility] Comment on above: Performed By: #### C BC, BMP #### [facility] ([id number]) [address], [address] [place] [address] MCHC (RBC) [Mass/Vol] 32.7 g/dL Normal 32-36 [facility] Comment on above: Performed By: #### Snehal CANALES, BMP #### [facility] ([id number]) [address], [facility] [address] [place] [address] MCV (RBC) [Entitic vol] 78 fL Low 80-100 [facility] Comment on above: Performed By: #### Snehal CANALES, BMP #### [facility] ([id number]) [address] [address] [place] [address] Platelet mean volume (Bld) [Entitic vol] 9.0 fL Normal 7-12 [facility] Comment on above: Performed By: #### Snehal CANALES, BMP #### [facility] ([id number]) [address] [address] [place] [address] Platelets (Bld) [#/Vol] 152 10*3/uL Normal 150-450 [facility] Comment on above: Performed By: #### Snehal CANALES, BMP #### [facility] ([id number]) [address], [facility] [address] [place] [address] RBC COUNT 3.22 X10E12/L Low 4.10-5.70 [facility] Comment on above: Performed By: #### nSehal CANALES, BMP #### [facility] ([id number]) [address] [address] WBC (Bld) [#/Vol] 9.8 10*3/uL Normal 4.0-11.0 [facility] Comment on above: Performed By: #### Snehal CANALES, BMP #### [facility] ([id number]) [address] [address] [place] [address] Glucose Glucometer (BldC) [M ass/Vol]on 11-11-2023 Glucose [Mass/Vol] 184 mg/dL High 65-99 [facility] Glucose [Mass/Vol] 179 mg/dL High 65-99 [facility] Glucose [Mass/Vol] 222 mg/dL High 65-99 [facility] Glucose [Mass/Vol] 303 mg/dL High 65-99 [facility] MAGNESIUMon 11-11-2023 Magnesium [Mass/Vol] 2.4 mg/dL Normal 1.8-2.6 [facility] Comment on above: Performed By: #### Snehal CANALES, BMP #### [facility] ([id number]) [address], [address] [place] [address] Magnesium [Mass/Vol] 1.9 mg/dL Normal 1.8-2.6 [facility] Comment on above: Performed By: #### Snehal CANALES BMP #### [facility] ([id number]) [address] [place] [address] PHOSPHORUSon 11-11-2023 Phosphate [Mass/Vol] 3.2 mg/dL Normal 2.4-4.9 [facility] Comment on above: Performed By: #### Snehal CANALES, BMP #### [facility] ([id number]) [address] [place] [address] BASIC METABOLIC PANLon 11-09 Anion gap [Moles/Vol] 6 mmol/L Normal 5-15 [facility] Comment on above: Performed By: #### KENDALL AHUJA, 2776-06 ####[facility] ([id number])[address], [place] [address] Calcium [Mass/Vol] 8.5 mg/dL Normal 8.5-10.5 [facility] Comment on above: Performed By: #### KENDALL AHUJA, 2776-06 ####[facility] ([id number])[address], [place] [address] Chloride [Moles/Vol] 102 mmol/L Normal 98-109 [facility] Comment on above: Performed By: #### C ALLY, [facility], , 2776-06 ####[facility] ([id number])[address], [address] [place] [address] CO2 [Moles/Vol] 26 mmol/L Normal 22-32 [facility] Comment on above: Performed By: #### C KENDALL CANALES, , 2776-06 ####[facility] ([id number])[address] [place] [address] Creatinine [Mass/Vol] 1.59 mg/dL High 0.60-1.30 [facility] Comment on above: Result Comment: METH OD TRACEABLE TO IDMS STANDARD Performed By: #### C KENDALL CANALES, , 2776-06 ####[facility] ([id number])[address], [place] [address] GFR/1.73 sq M.predicted among non-blacks MDRD (S/P/Bld) [Vol rate/Area] 50 mL/min/{1.73_m2} Low >59 [facility] Comment on above: Result Comment: Reported eGFR is based on the CKD-EPI 2020 equation that does not use a race coefficient. Performed By: #### C KENDALL CANALES, , 2776-06 ####[facility] ([id number])[address], [address] [place] [address] Glucose [Mass/Vol] 145 mg/dL High 65-99 [facility] Comment on above: Performed By: #### C KENDALL CANALES, , 2776-06 ####[facility] ([id number])[address], [address] [place] [address] Potassium [Moles/Vol] 3.9 mmol/L Normal 3.5-5.0 [facility] Comment on above: Performed By: #### C KENDALL CANALES, , 2776-06 ####[facility] ([id number])[address], [address] [place] [address] Sodium [Moles/Vol] 134 mmol/L Normal 134-146 [facility] Comment on above: Performed By: #### C , [facility], , 2776-06 ####[facility] ([id number])[address], [address], [place] [address] Urea nitrogen [Mass/Vol] 23 mg/dL Normal 5-23 [facility] Comment on above: Performed By: #### C , [facility], , 2776-06 ####[facility] ([id number])[address], [place] [address] COMPLETE BLOOD COUNTon 11-09 Erythrocyte distribution width (RBC) [Ratio] 24.9 % High 11.5-15.0 [facility] Comment on above: Performed By: #### C , [facility], , 2776-06 ####[facility] ([id number])[address] [address], [place] [address] Hematocrit (Bld) [Volume fraction] 24.5 % Low 39-49 [facility] Comment on above: Performed By: #### C ALLY, [facility], , 2776-06 ####[facility] ([id number])[address] [address], [place] [address] Hemoglobin (Bld) [Mass/Vol] 7.9 g/dL Low 13.0-17.0 [facility] Comment on above: Performed By: #### C BC, BMP, , 2776-06 ####[facility] ([id number])[address] [address], [place] [address] MCH (RBC) [Entitic mass] 25.4 pg Low 27-34 [facility] Comment on above: Performed By: #### C ALYL, [facility], , 2776-06 ####[facility] ([id number])[address], [address] [place] [address] MCHC (RBC) [Mass/Vol] 32.4 g/dL Normal 32-36 [facility] Comment on above: Performed By: #### Snehal CANALES, BMP, , 2776-06 ####[facility] ([id number])[address], [address] [place] [address] MCV (RBC) [Entitic vol] 78 fL Low 80-100 [facility] Comment on above: Performed By: #### Snehal CANALES, BMP, , 2776-06 ####[facility] ([id number])[address], [address] [place] [address] Platelet mean volume (Bld) [Entitic vol] 9.1 fL Normal 7-12 [facility] Comment on above: Performed By: #### Snehal CANALES, [facility], , 2776-06 ####[facility] ([id number])[address] [place] [address] Platelets (Bld) [#/Vol] 142 10*3/uL Low 150-450 [facility] Comment on above: Performed By: #### Snehal CANALES, BMP, , 2776-06 ####[facility] ([id number])[address], [place] [address] RBC COUNT 3.14 X10E12/L Low 4.10-5.70 [facility] Comment on above: Performed By: #### Snehal CANALES, BMP, , 2776-06 ####[facility] ([id number])[address], [address], [place] [address] WBC (Bld) [#/Vol] 9.7 10*3/uL Normal 4.0-11.0 [facility] Comment on above: Performed By: #### Snehal CANALES, KENDALL, , 2776-06 ####[facility] ([id number])[address], [address], [place] [address] Glucose Glucometer (BldC) [M ass/Vol]on 11-10-2023 Glucose [Mass/Vol] 168 mg/dL High 65-99 [facility] Glucose [Mass/Vol] 245 mg/dL High 65-99 [facility] Glucose [Mass/Vol] 155 mg/dL High 65-99 [facility] Glucose [Mass/Vol] 153 mg/dL High 65-99 [facility] MAGNESIUMon 11-10-2023 Magnesium [Mass/Vol] 2.2 mg/dL Normal 1.8-2.6 [facility] Comment on above: Performed By: #### Snehal CANALES, BMP #### [facility] ([id number]) [address], [address] [place] [address] Magnesium [Mass/Vol] 1.8 mg/dL Normal 1.8-2.6 [facility] Comment on above: Performed By: #### Snehal CANALES, KENDALL, , 2776-06 ####[facility] ([id number])[address], [place] [address] PHOSPHORUSon 11-10-2023 Phosphate [Mass/Vol] 3.1 mg/dL Normal 2.4-4.9 [facility] Comment on above: Performed By: #### Snehal CANALES, KENDALL, , 2776-06 ####[facility] ([id number])[address], [address], [place] [address] BASIC METABOLIC PANLon 11-08 Anion gap [Moles/Vol] 9 mmol/L Normal 5-15 [facility] Comment on above: Performed By: #### Snehal CANALES, 2639-3, BMP, 2156-11, , 2776-06 ####[facility] ([id number])[address] [address] [place] [address] Calcium [Mass/Vol] 8.4 mg/dL Low 8.5-10.5 [facility] Comment on above: Performed By: #### Snehal BC, 2639-3, BMP, 2156-, , 2776- ####[facility] ([id number])[address] [address] [place] [address] Chloride [Moles/Vol] 104 mmol/L Normal 98-109 [facility] Comment on above: Performed By: #### Snehal CANALES, 2639-3, BMP, 2156-11, , 2776- ####[facility] ([id number])[address] [address] CO2 [Moles/Vol] 25 mmol/L Normal 22-32 [facility] Comment on above: Performed By: #### Snehal CANALES, 2639-3, BMP, 2156-11, , 2776- ####[facility] ([id number])[address] [address] Creatinine [Mass/Vol] 1.35 mg/dL High 0.60-1.30 [facility] Comment on above: Result Comment: METH OD TRACEABLE TO IDMS STANDARD Performed By: #### Snehal BC, 2639-3, BMP, 2156-11, , 2776- ####[facility] ([id number])[address] [address] GFR/1.73 sq M.predicted among non-blacks MDRD (S/P/Bld) [Vol rate/Area] 61 mL/min/{1.73_m2} Normal >59 [facility] Comment on above: Result Comment: Reported eGFR is based on the CKD-EPI 2020 equation that does not use a race coefficient. Performed By: #### C BC, 2639-3, BMP, 2156-6, 88353-2, 2776-1 ####[facility] ([id number])[address], [place] [address] Glucose [Mass/Vol] 217 mg/dL High 65-99 [facility] Comment on above: Performed By: #### C BC, 2639-3, BMP, 2156-6, 46072-6, 2776- ####[facility] ([id number])[address], [place] [address] Potassium [Moles/Vol] 4.2 mmol/L Normal 3.5-5.0 [facility] Comment on above: Performed By: #### C BC, 2639-3, BMP, 2156-6, 13801-3, 2776- ####[facility] ([id number])[address] [address], [place] [address] Sodium [Moles/Vol] 138 mmol/L Normal 134-146 [facility] Comment on above: Performed By: #### C BC, 2639-3, BMP, 2156-6, 43335-6, 2776-1 ####[facility] ([id number])[address] [address], [place] [address] Urea nitrogen [Mass/Vol] 23 mg/dL Normal 5-23 [facility] Comment on above: Performed By: #### C BC, 2639-3, BMP, 2156-6, 17306-8, 2776-1 ####[facility] ([id number])[address] [address] [place] [address] CK [Catalytic activity/Vol]o n 11-09-2023 CPK 44 U/L Normal 24-195 [facility] Comment on above: Performed By: #### 2 157-6, 2639-3 ####[facility] ([id number])[address], [place] [address] CPK 30 U/L Normal 24-195 [facility] Comment on above: Performed By: #### C BC, 2639-3, BMP, 2156-6, , 1 ####[facility] ([id number])[address], [address] [place] [address] COMPLETE BLOOD COUNTon 11-08 Erythrocyte distribution width (RBC) [Ratio] 24.9 % High 11.5-15.0 [facility] Comment on above: Performed By: #### C ALLY, 2639-3, BMP, 2156-11, , 2776-06 ####[facility] ([id number])[address], [place] [address] Hematocrit (Bld) [Volume fraction] 26.8 % Low 39-49 [facility] Comment on above: Performed By: #### C ALLY, 2639-3, BMP, 2156-, , 2776-06 ####[facility] ([id number])[address] [address] [place] [address] Hemoglobin (Bld) [Mass/Vol] 8.7 g/dL Low 13.0-17.0 [facility] Comment on above: Performed By: #### Snehal BC, 2639-3, BMP, 2156-11, , 2776-06 ####[facility] ([id number])[address] [address] [place] [address] MCH (RBC) [Entitic mass] 24.8 pg Low 27-34 [facility] Comment on above: Performed By: #### Snehal BC, 2639-3, BMP, 2156-, , 1 ####[facility] ([id number])[address] [address] MCHC (RBC) [Mass/Vol] 32.6 g/dL Normal 32-36 [facility] Comment on above: Performed By: #### Snehal CANALES, 2639-3, BMP, 2156-11, , 2776-06 ####[facility] ([id number])[address] [address] MCV (RBC) [Entitic vol] 76 fL Low 80-100 [facility] Comment on above: Performed By: #### Snehal CANALES, 2639-3, BMP, 2156-11, , 2776- ####[facility] ([id number])[address] [address] Platelet mean volume (Bld) [Entitic vol] 9.3 fL Normal 7-12 [facility] Comment on above: Performed By: #### Snehal CANALES, 2639-3, BMP, 2156-11, , 2776-06 ####[facility] ([id number])[address] [address] Platelets (Bld) [#/Vol] 184 10*3/uL Normal 150-450 [facility] Comment on above: Performed By: #### Snehal CANALES, 2639-3, BMP, 2156-11, , 2776-06 ####[facility] ([id number])[address] [address] RBC COUNT 3.53 X10E12/L Low 4.10-5.70 [facility] Comment on above: Performed By: #### Snehal CANALES, 2639-3, BMP, 2156-11, , 2776-06 ####[facility] ([id number])[address] [address] WBC (Bld) [#/Vol] 11.0 10*3/uL Normal 4.0-11.0 [facility] Comment on above: Performed By: #### C ALLY, 2639-3, BMP, 2156-11, , 1 ####[facility] ([id number])[address] [place] [address] Glucose Glucometer (BldC) [M ass/Vol]on 11-09-2023 Glucose [Mass/Vol] 243 mg/dL High 65-99 [facility] Glucose [Mass/Vol] 184 mg/dL High 65-99 [facility] Glucose [Mass/Vol] 199 mg/dL High 65-99 [facility] Glucose [Mass/Vol] 218 mg/dL High 65-99 [facility] Heparin unfractionated Chrom ogenic method Qn (PPP)on 11-09-2023 ANTI XA UFH 0.15 IU/mL Low 0.30-0.70 [facility] Comment on above: Result Comment: Opti mal time for testing is 6 hrs post dosage This test is specific for monitoring patients on UFH, and is not recommended for use with other Anti-Xa medications. Performed By: #### 3 274-8 ####[facility] ([id number])[address] [place] [address] MAGNESIUMon 11-09-2023 Magnesium [Mass/Vol] 2.2 mg/dL Normal 1.8-2.6 [facility] Comment on above: Performed By: #### C ALLY, 2639-3, [facility], 2156-11, , 1 ####[facility] ([id number])[address] [place] [address] Myoglobin [Mass/Vol]on 11-08 SERUM MYOGLOBIN 97.7 ng/mL Normal 17.4-105.7 [facility] Comment on above: Performed By: #### 2 157-6, 2639-3 ####[facility] ([id number])[address], [place] [address] SERUM MYOGLOBIN 51.7 ng/mL Normal 17.4-105.7 [facility] Comment on above: Performed By: #### C BC, 2639-3, BMP, 2156-11, , 2776-1 ####[facility] ([id number])[address], [place] [address] PHOSPHORUSon 11-09-2023 Phosphate [Mass/Vol] 4.4 mg/dL Normal 2.4-4.9 [facility] Comment on above: Performed By: #### C BC, 2639-3, BMP, 2156-11, , 1 ####[facility] ([id number])[address], [place] [address] BASIC METABOLIC PANLon 11-07 Anion gap [Moles/Vol] 9 mmol/L Normal 5-15 [facility] Comment on above: Performed By: #### P INR #### [facility] ([id number]) [address], [address] [place] [address] Calcium [Mass/Vol] 8.4 mg/dL Low 8.5-10.5 [facility] Comment on above: Performed By: #### P INR #### [facility] ([id number]) [address], [address] [place] [address] Chloride [Moles/Vol] 106 mmol/L Normal 98-109 [facility] Comment on above: Performed By: #### P INR #### [facility] ([id number]) [address], [address] [place] [address] CO2 [Moles/Vol] 24 mmol/L Normal 22-32 [facility] Comment on above: Performed By: #### P INR #### [facility] ([id number]) [address] [address] [place] [address] Creatinine [Mass/Vol] 1.30 mg/dL Normal 0.60-1.30 [facility] Comment on above: Result Comment: METH OD TRACEABLE TO IDMS STANDARD Performed By: #### P INR #### [facility] ([id number]) [address] [place] [address] GFR/1.73 sq M.predicted among non-blacks MDRD (S/P/Bld) [Vol rate/Area] 64 mL/min/{1.73_m2} Normal >59 [facility] Comment on above: Result Comment: Reported eGFR is based on the CKD-EPI 2020 equation that does not use a race coefficient. Performed By: #### P INR #### [facility] ([id number]) [address] [place] [address] Glucose [Mass/Vol] 163 mg/dL High 65-99 [facility] Comment on above: Performed By: #### P INR #### [facility] ([id number]) [address] [address] [address] [place] [address] Potassium [Moles/Vol] 4.1 mmol/L Normal 3.5-5.0 [facility] Comment on above: Performed By: #### P INR #### [facility] ([id number]) [address] [place] [address] Sodium [Moles/Vol] 139 mmol/L Normal 134-146 [facility] Comment on above: Performed By: #### P INR #### [facility] ([id number]) [address] [address] [place] [address] Urea nitrogen [Mass/Vol] 23 mg/dL Normal 5-23 [facility] Comment on above: Performed By: #### P INR #### [facility] ([id number]) [address] [address] [address] [place] [address] Anion gap [Moles/Vol] 9 mmol/L Normal 5-15 [facility] Comment on above: Performed By: #### C ALLY, BMP #### [facility] ([id number]) [address] [place] [address] Calcium [Mass/Vol] 8.8 mg/dL Normal 8.5-10.5 [facility] Comment on above: Performed By: #### C ALLY, BMP #### [facility] ([id number]) [address] [place] [address] Chloride [Moles/Vol] 104 mmol/L Normal 98-109 [facility] Comment on above: Performed By: #### Snehal CANALES, BMP #### [facility] ([id number]) [address] [place] [address] CO2 [Moles/Vol] 25 mmol/L Normal 22-32 [facility] Comment on above: Performed By: #### Snehal CANALES, BMP #### [facility] ([id number]) [address] [place] [address] Creatinine [Mass/Vol] 1.70 mg/dL High 0.60-1.30 [facility] Comment on above: Result Comment: METH OD TRACEABLE TO IDMS STANDARD Performed By: #### C ALLY, BMP #### [facility] ([id number]) [address] [address] GFR/1.73 sq M.predicted among non-blacks MDRD (S/P/Bld) [Vol rate/Area] 46 mL/min/{1.73_m2} Low >59 [facility] Comment on above: Result Comment: Reported eGFR is based on the CKD-EPI 2020 equation that does not use a race coefficient. Performed By: #### C ALLY, BMP #### [facility] ([id number]) [address] [place] [address] Glucose [Mass/Vol] 111 mg/dL High 65-99 [facility] Comment on above: Performed By: #### C BC, BMP #### [facility] ([id number]) [address] [place] [address] Potassium [Moles/Vol] 3.8 mmol/L Normal 3.5-5.0 [facility] Comment on above: Performed By: #### C BC, BMP #### [facility] ([id number]) [address] [place] [address] Sodium [Moles/Vol] 138 mmol/L Normal 134-146 [facility] Comment on above: Performed By: #### C BC, BMP #### [facility] ([id number]) [address] [place] [address] Urea nitrogen [Mass/Vol] 28 mg/dL High 5-23 [facility] Comment on above: Performed By: #### C BC, BMP #### [facility] ([id number]) [address] [place] [address] CK [Catalytic activity/Vol]o n 11-08-2023 CPK 26 U/L Normal 24-195 [facility] Comment on above: Performed By: #### P INR #### [facility] ([id number]) [address] [place] [address] COMPLETE BLOOD COUNTon 11-07 Erythrocyte distribution width (RBC) [Ratio] 24.8 % High 11.5-15.0 [facility] Comment on above: Performed By: #### P INR #### [facility] ([id number]) [address] [place] [address] Hematocrit (Bld) [Volume fraction] 29.3 % Low 39-49 [facility] Comment on above: Performed By: #### P INR #### [facility] ([id number]) [address] [place] [address] Hemoglobin (Bld) [Mass/Vol] 9.6 g/dL Low 13.0-17.0 [facility] Comment on above: Performed By: #### P INR #### [facility] ([id number]) [address] [address] [place] [address] MCH (RBC) [Entitic mass] 24.9 pg Low 27-34 [facility] Comment on above: Performed By: #### P INR #### [facility] ([id number]) [address] [facility] [address] [address] [place] [address] MCHC (RBC) [Mass/Vol] 32.7 g/dL Normal 32-36 [facility] Comment on above: Performed By: #### P INR #### [facility] ([id number]) [address] [facility] [address] [address] [place] [address] MCV (RBC) [Entitic vol] 76 fL Low 80-100 [facility] Comment on above: Performed By: #### P INR #### [facility] ([id number]) [address] [place] [address] Platelet mean volume (Bld) [Entitic vol] 8.7 fL Normal 7-12 [facility] Comment on above: Performed By: #### P INR #### [facility] ([id number]) [address] [address] [place] [address] Platelets (Bld) [#/Vol] 169 10*3/uL Normal 150-450 [facility] Comment on above: Performed By: #### P INR #### [facility] ([id number]) [address] [facility] [address] [address] [place] [address] RBC COUNT 3.85 X10E12/L Low 4.10-5.70 [facility] Comment on above: Performed By: #### P INR #### [place] [facility] ([id number]) [address] [place] [address] WBC (Bld) [#/Vol] 13.5 10*3/uL High 4.0-11.0 [facility] Comment on above: Performed By: #### P INR #### [facility] ([id number]) [address] [place] [address] Erythrocyte distribution width (RBC) [Ratio] 25.2 % High 11.5-15.0 [facility] Comment on above: Performed By: #### C BC, BMP #### [facility] ([id number]) [address] [place] [address] Hematocrit (Bld) [Volume fraction] 33.0 % Low 39-49 [facility] Comment on above: Performed By: #### C BC, BMP #### [facility] ([id number]) [address] [place] [address] Hemoglobin (Bld) [Mass/Vol] 10.8 g/dL Low 13.0-17.0 [facility] Comment on above: Performed By: #### C BC, BMP #### [facility] ([id number]) [address] [place] [address] MCH (RBC) [Entitic mass] 25.0 pg Low 27-34 [facility] Comment on above: Performed By: #### C BC, BMP #### [facility] ([id number]) [address] [place] [address] MCHC (RBC) [Mass/Vol] 32.8 g/dL Normal 32-36 [facility] Comment on above: Performed By: #### C BC, BMP #### [facility] ([id number]) [address] [place] [address] MCV (RBC) [Entitic vol] 76 fL Low 80-100 [facility] Comment on above: Performed By: #### Snehal CANALES, BMP #### [facility] ([id number]) [address] [facility] [address] [place] [address] Platelet mean volume (Bld) [Entitic vol] 8.8 fL Normal 7-12 [facility] Comment on above: Performed By: #### Snehal CANALES, BMP #### [facility] ([id number]) [address] [address] Platelets (Bld) [#/Vol] 172 10*3/uL Normal 150-450 [facility] Comment on above: Performed By: #### Snehal CANALES, BMP #### [facility] ([id number]) [address] [address] RBC COUNT 4.33 X10E12/L Normal 4.10-5.70 [facility] Comment on above: Performed By: #### Snehal CANALES, BMP #### [facility] ([id number]) [address] [address] WBC (Bld) [#/Vol] 9.3 10*3/uL Normal 4.0-11.0 [facility] Comment on above: Performed By: #### Snehal CANALES, BMP #### [facility] ([id number]) [address] [place] [address] Glucose Glucometer (BldC) [M ass/Vol]on 11-08-2023 Glucose [Mass/Vol] 162 mg/dL High 65-99 [facility] Glucose [Mass/Vol] 96 mg/dL Normal 65-99 [facility] Glucose [Mass/Vol] 142 mg/dL High 65-99 [facility] Glucose [Mass/Vol] 114 mg/dL High 65-99 [facility] Lactate (P ekaterina) [Moles/Vol]o n 11-08-2023 LACTATE W/REFLEX 1.0 mmol/L Normal 0.4-2.0 [facility] Comment on above: Result Comment: Result did not trigger repeat Lactate, re-order if needed. Performed By: #### P INR #### [facility] ([id number]) [address] [place] [address] MAGNESIUMon 11-08-2023 Magnesium [Mass/Vol] 1.7 mg/dL Low 1.8-2.6 [facility] Comment on above: Performed By: #### P INR #### [facility] ([id number]) [address], [address] [place] [address] Myoglobin [Mass/Vol]on 11-07 SERUM MYOGLOBIN 33.1 ng/mL Normal 17.4-105.7 [facility] Comment on above: Performed By: #### P INR #### [facility] ([id number]) [address] [place] [address] PHOSPHORUSon 11-08-2023 Phosphate [Mass/Vol] 4.0 mg/dL Normal 2.4-4.9 [facility] Comment on above: Performed By: #### P INR #### [facility] ([id number]) [address] [address] [place] [address] PROTIME AND INRon 11-08-2023 INR Coag (PPP) [Relative time] 1.3 {INR} High 0.8-1.1 [facility] Comment on above: Performed By: #### P INR #### [facility] ([id number]) [address] [place] [address] PT Coag (PPP) [Time] 14.7 s High 9.8-13.2 [facility] Comment on above: Performed By: #### P INR #### [facility] ([id number]) [address] [place] [address] RAPID CARDIACon 11-08-2023 COURTNEY'S TEST Normal [facility] Comment on above: Performed By: #### A FAB5 #### [facility] ([id number]) [address] [place] [address] Base excess Calc (Bld) [Moles/Vol] 0.1 mmol/L Normal 0.0-2.0 [facility] Comment on above: Performed By: #### A FAB5 #### [facility] ([id number]) [address] [place] [address] Body temperature 98.6 [degF] Normal 37.[address] [facility] Comment on above: Performed By: #### A FAB5 #### [facility] ([id number]) [address] [place] [address] Glucose [Mass/Vol] 117 mg/dL High 65-99 [facility] Comment on above: Performed By: #### A FAB5 #### [facility] ([id number]) [address] [place] [address] HCO3 (Bld) [Moles/Vol] 24.8 mmol/L Normal 22-26 [facility] Comment on above: Performed By: #### A FAB5 #### [facility] ([id number]) [address] [place] [address] Hematocrit (Bld) [Volume fraction] 31 % Low 39-49 [facility] Comment on above: Performed By: #### A FAB5 #### [facility] ([id number]) [address] [place] [address] Hemoglobin (Bld) [Mass/Vol] 10.2 g/dL Low 13.0-17.0 [facility] Comment on above: Performed By: #### A FAB5 #### [facility] ([id number]) [address] [place] [address] INSP. O2 CONC. 100 % Normal [facility] Comment on above: Performed By: #### A FAB5 #### [facility] ([id number]) [address] [place] [address] IONIZED CALCIUM 4.8 mg/dL Normal 4.5-5.3 [facility] Comment on above: Performed By: #### A FAB5 #### [facility] ([id number]) [address] [place] [address] Oxygen (Bld) [Partial pressure] 167 mm[Hg] High 80-100 [facility] Comment on above: Performed By: #### A FAB5 #### [facility] ([id number]) [address] [place] [address] Oxygen saturation in Blood 100.8 % Normal >90 [facility] Comment on above: Performed By: #### A FAB5 #### [facility] ([id number]) [address] [place] [address] PCO2 39.7 MMHG Normal 35-45 [facility] Comment on above: Performed By: #### A FAB5 #### [facility] ([id number]) [address] [place] [address] pH (Bld) 7.404 [pH] Normal 7.350-7.45 0 [facility] Comment on above: Performed By: #### A FAB5 #### [facility] ([id number]) [address] [place] [address] Potassium [Moles/Vol] 3.8 mmol/L Normal 3.5-5.0 [facility] Comment on above: Performed By: #### A FAB5 #### [facility] ([id number]) [address] [place] [address] SAMPLE SITE KECIA Normal [facility] Comment on above: Performed By: #### A FAB5 #### [facility] ([id number]) [address] [place] [address] SAMPLE TYPE Arterial Normal [facility] Comment on above: Performed By: #### A FAB5 #### [facility] ([id number]) [address] [place] [address] RAPID CARDIAC W/ NAon 2023 COURTNEY'S TEST Normal [facility] Comment on above: Performed By: #### P INR #### [facility] ([id number]) [address] [place] [address] Base excess Calc (Bld) [Moles/Vol] 0.2 mmol/L Normal 0.0-2.0 [facility] Comment on above: Performed By: #### P INR #### [facility] ([id number]) [address] [place] [address] Body temperature 98.6 [degF] Normal 37.[address] [facility] Comment on above: Performed By: #### P INR #### [facility] ([id number]) [address] [address] [place] [address] Glucose [Mass/Vol] 125 mg/dL High 65-99 [facility] Comment on above: Performed By: #### P INR #### [facility] ([id number]) [address] [place] [address] HCO3 (Bld) [Moles/Vol] 25.3 mmol/L Normal 22-26 [facility] Comment on above: Performed By: #### P INR #### [facility] ([id number]) [address] [place] [address] Hematocrit (Bld) [Volume fraction] 31 % Low 39-49 [facility] Comment on above: Performed By: #### P INR #### [facility] ([id number]) [address] [place] [address] Hemoglobin (Bld) [Mass/Vol] 10.0 g/dL Low 13.0-17.0 [facility] Comment on above: Performed By: #### P INR #### [facility] ([id number]) [address] [place] [address] INSP. O2 CONC. 50 % Normal [facility] Comment on above: Performed By: #### P INR #### [facility] ([id number]) [address] [place] [address] IONIZED CALCIUM 4.7 mg/dL Normal 4.5-5.3 [facility] Comment on above: Performed By: #### P INR #### [facility] ([id number]) [address] [place] [address] Oxygen (Bld) [Partial pressure] 131 mm[Hg] High 80-100 [facility] Comment on above: Performed By: #### P INR #### [facility] ([id number]) [address] [place] [address] Oxygen saturation in Blood 99.9 % Normal >90 [facility] Comment on above: Performed By: #### P INR #### [facility] ([id number]) [address] [place] [address] PCO2 42.7 MMHG Normal 35-45 [facility] Comment on above: Performed By: #### P INR #### [facility] ([id number]) [address] [place] [address] pH (Bld) 7.381 [pH] Normal 7.350-7.45 0 [facility] Comment on above: Performed By: #### P INR #### [facility] ([id number]) [address] [place] [address] Potassium [Moles/Vol] 3.7 mmol/L Normal 3.5-5.0 [facility] Comment on above: Performed By: #### P INR #### [facility] ([id number]) [address] [place] [address] SAMPLE SITE KECIA Normal [facility] Comment on above: Performed By: #### P INR #### [facility] ([id number]) [address] [place] [address] SAMPLE TYPE Arterial Normal [facility] Comment on above: Performed By: #### P INR #### [facility] ([id number]) [address] [place] [address] Sodium [Moles/Vol] 139 mmol/L Normal 134-146 [facility] Comment on above: Performed By: #### P INR #### [facility] ([id number]) [address] [place] [address] aPTT Coag (PPP) [Time]on aPTT Coag (Bld) [Time] 30 s Normal 26-37 [facility] Comment on above: Performed By: #### P INR #### [facility] ([id number]) [address] [place] [address] Glucose Glucometer (BldC) [M ass/Vol]on 11-07-2023 Glucose [Mass/Vol] 150 mg/dL High 65-99 [facility] Glucose [Mass/Vol] 58 mg/dL Low 65-99 [facility] POC [id number] 11-07-2023 Chloride [Moles/Vol] 98 mmol/L Normal 98-109 [facility] Comment on above: Performed By: #### I ELGBC #### [facility] ([id number]) [address] [place] [address] CO2 [Moles/Vol] 31 mmol/L Normal 22-32 [facility] Comment on above: Performed By: #### I ELGB #### [facility] ([id number]) [address] [place] [address] Creatinine [Mass/Vol] 1.9 mg/dL High 0.7-1.2 [facility] Comment on above: Result Comment: METH OD TRACEABLE TO IDMS STANDARD Performed By: #### I ELGB #### [facility] ([id number]) [address] [place] [address] GFR/1.73 sq M.predicted among non-blacks MDRD (S/P/Bld) [Vol rate/Area] 40 mL/min/{1.73_m2} Low >59 [facility] Comment on above: Result Comment: Reported eGFR is based on the CKD-EPI 2020 equation that does not use a race coefficient. Performed By: #### I ELGB #### [facility] ([id number]) [address] [place] [address] Glucose [Mass/Vol] 72 mg/dL Normal 65-99 [facility] Comment on above: Performed By: #### I ELGB #### [facility] ([id number]) [address] [place] [address] Potassium [Moles/Vol] 3.6 mmol/L Normal 3.5-5.0 [facility] Comment on above: Performed By: #### I ELGB #### [facility] ([id number]) [address] [place] [address] Sodium [Moles/Vol] 139 mmol/L Normal 134-146 [facility] Comment on above: Performed By: #### I ELGBC #### [facility] ([id number]) [address] [place] [address] Urea nitrogen [Mass/Vol] 31 mg/dL High 6-23 [facility] Comment on above: Performed By: #### I ELGBC #### [facility] ([id number]) [address] [place] [address] PROTIME AND INRon 11-07-2023 INR Coag (PPP) [Relative time] 1.3 {INR} High 0.8-1.1 [facility] Comment on above: Performed By: #### P INR #### [facility] ([id number]) [address] [place] [address] PT Coag (PPP) [Time] 14.5 s High 9.8-13.2 [facility] Comment on above: Performed By: #### P INR #### [facility] ([id number]) [address] [place] [address] ECG 12 Leadon 10-24-2023 [facility] Work Phone: Consent for Treatmenton 10-04 Consent for Treatment [id number]#1.00TIFF Normal [facility] Heart and Vascular Office/Cl inic [...] 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 Normal [facility] Comment on [...] MD Transcribed by: HASEEB Technologist: HW Normal [facility] CHEMISTRYOrdered By: SYSTEM SYSTEM on [...] 370 Contrast amount in ml's: 150 Normal [facility] Consent for Treatmenton 10-03 Consent for Treatment [id number]#1.00TIFF Normal [facility] Creatinineon 10-19-2023 Creatinine [Mass/Vol] 1.6 mg/dL High 0.5-1.3 [facility] Comment on above: Performed By: #### 2 [id number] #### [facility] [address] [place] [address] Physician Orderon 10-19-2023 Physician Order [id number]#1.00TIFF Normal [facility] eGFRon 10-19-2023 eGFR 50 mL/min/1.73 m2 Low >=59 [facility] Comment on above: Order Comment: Order added by Discern Expert. Performed By: #### 1 [id number] #### [facility] [address] [place] [address] Outside Progress Noteon 10-03 Outside Progress Note [id number]#1.00TIFF Normal [facility] Physician Orderon 10-18-2023 Physician Order [id number] Normal [facility] Physician Order [id number] Normal [facility] Basophils Auto (Bld) [#/Vol] on 10-06-2023 Basophils (Bld) [#/Vol] 0.0 10 3/uL 0.0-0.1 [facility] Basophils/100 WBC Auto (Bld) on 10-06-2023 Basophils/100 WBC (Bld) 0.3 % 0.2-2.0 [facility] Eosinophils/100 WBC Auto (Bl d)on 10-06-2023 Eosinophils/100 WBC (Bld) 1.9 % 0.9-7.0 [facility] Erythrocyte distribution wid th Auto (RBC) [Ratio]on 10-06-2023 Erythrocyte distribution width (RBC) [Ratio] 19.9 % High 11.0-15.0 [facility] Estimated glomerular filtrat ion rate (GFR) non- Americanon 10-06-2023 GFR/1.73 sq M.predicted among non-blacks MDRD (S/P/Bld) [Vol rate/Area] 42 mL/min/{1.73_m2} Low >=60 [facility] Globulin Calc (S) [Mass/Vol] on 10-06-2023 Globulin (S) [Mass/Vol] 4.3 g/dL [facility] Hematocrit Auto (Bld) [Volum e fraction]on 10-06-2023 Hematocrit (Bld) [Volume fraction] 28.3 % Low 42.0-54.0 [facility] Hemoglobin [Mass/volume] in Bloodon 10-06-2023 Hemoglobin (Bld) [Mass/Vol] 8.4 g/dL Low 14.0-18.0 [facility] Laboratory - Chemistry and C hemistry - challengeon 10-06-2023 Albumin [Mass/Vol] 2.1 g/dL Low 3.4-5.0 [facility] ALP [Catalytic activity/Vol] 133 U/L High 46-116 [facility] ALT [Catalytic activity/Vol] 18 U/L 16-63 [facility] AST [Catalytic activity/Vol] 20 U/L 15-37 [facility] Bilirubin [Mass/Vol] 0.3 mg/dL 0.2-1.0 [facility] Calcium [Mass/Vol] 9.4 mg/dL 8.5-10.1 [facility] Chloride [Moles/Vol] 103 mmol/L 98-107 [facility] CO2 [Moles/Vol] 23.7 mmol/L 21.0-32.0 [facility] Creatinine [Mass/Vol] 1.67 mg/dL High 0.70-1.30 [facility] GFR/1.73 sq M.predicted MDRD (S/P/Bld) [Vol rate/Area] 52 mL/min/{1.73_m2} Low >=60 [facility] Glucose [Mass/Vol] 91 mg/dL 74-106 [facility] Magnesium [Mass/Vol] 1.6 mg/dL Low 1.8-2.4 [facility] Potassium [Moles/Vol] 4.8 mmol/L 3.5-5.1 [facility] Protein [Mass/Vol] 6.4 g/dL 6.4-8.2 [facility] Sodium [Moles/Vol] 136 mmol/L 136-145 [facility] Urea nitrogen [Mass/Vol] 29.0 mg/dL High 7.0-18.0 [facility] Urea nitrogen/Creatinine [Mass ratio] 17.4 mg/mg [facility] Laboratory - Hematology and Cell countson 10-06-2023 ESR (Bld) [Velocity] mm/h High <=20 [facility] Immature granulocytes/100 WBC (Bld) 1.5 % High 0.0-0.5 [facility] Leukocytes [#/volume] correc jorge for nucleated erythrocytes in Blood by Automated counon 10-06-2023 WBC corrected for nucl RBC Auto (Bld) [#/Vol] 11.6 10 3/uL High 4.0-11.0 [facility] Lymphocytes Auto (Bld) [#/Vo l]on 10-06-2023 Lymphocytes (Bld) [#/Vol] 1.5 10 3/uL 1.2-3.8 [facility] Lymphocytes/100 WBC Auto (Bl d)on 10-06-2023 Lymphocytes/100 WBC (Bld) 12.9 % Low 20.5-60.0 [facility] MCH Auto (RBC) [Entitic mass ]on 10-06-2023 MCH (RBC) [Entitic mass] 22.5 pg Low 25.9-34.0 [facility] MCHC Auto (RBC) [Mass/Vol]on 10-06-2023 MCHC (RBC) [Mass/Vol] 29.7 g/dL Low 29.9-35.2 [facility] MCV Auto (RBC) [Entitic vol] on 10-06-2023 MCV (RBC) [Entitic vol] 75.9 fL Low 80.0-94.0 [facility] Monocytes Auto (Bld) [#/Vol] on 10-06-2023 Monocytes (Bld) [#/Vol] 1.3 10 3/uL High 0.3-0.8 [facility] Monocytes/100 WBC Auto (Bld) on 10-06-2023 Monocytes/100 WBC (Bld) 10.9 % 1.7-12.0 [facility] Neutrophils Auto (Bld) [#/Vo l]on 10-06-2023 Neutrophils (Bld) [#/Vol] 8.4 10 3/uL High 1.4-6.5 [facility] Neutrophils/100 WBC Auto (Bl d)on 10-06-2023 Neutrophils/100 WBC (Bld) 72.5 % 43.0-75.0 [facility] No Panel Informationon 10-05 Eosinophils # (Auto) 0.2 10 3/uL 0.0-0.7 [facility] Immature Granulocyte # (Auto) 0.17 10 3/uL High 0.00-0.03 [facility] Platelet mean volume Auto (B ld) [Entitic vol]on 10-06-2023 Platelet mean volume (Bld) [Entitic vol] 10.3 fL 9.5-13.5 [facility] Platelets Auto (Bld) [#/Vol] on 10-06-2023 Platelets (Bld) [#/Vol] 233 10 3/uL 150-450 [facility] RBC Auto (Bld) [#/Vol]on RBC (Bld) [#/Vol] 3.73 10 6/uL Low 4.70-6.10 [facility] Serum or plasma albumin/glob ulin mass ratioon 10-06-2023 Albumin/Globulin [Mass ratio] 0.5 {ratio} [facility] Serum or plasma anion gap de terminationon 10-06-2023 Anion gap [Moles/Vol] 14.1 [facility] Basophils Auto (Bld) [#/Vol] on 10-05-2023 Basophils (Bld) [#/Vol] 0.1 10 3/uL 0.0-0.1 [facility] Basophils/100 WBC Auto (Bld) on 10-05-2023 Basophils/100 WBC (Bld) 0.6 % 0.2-2.0 [facility] Eosinophils/100 WBC Auto (Bl d)on 10-05-2023 Eosinophils/100 WBC (Bld) 3.3 % 0.9-7.0 [facility] Erythrocyte distribution wid th Auto (RBC) [Ratio]on 10-05-2023 Erythrocyte distribution width (RBC) [Ratio] 19.6 % High 11.0-15.0 [facility] Estimated glomerular filtrat ion rate (GFR) non- Americanon 10-05-2023 GFR/1.73 sq M.predicted among non-blacks MDRD (S/P/Bld) [Vol rate/Area] 41 mL/min/{1.73_m2} Low >=60 [facility] Globulin Calc (S) [Mass/Vol] on 10-05-2023 Globulin (S) [Mass/Vol] 4.7 g/dL [facility] Hematocrit Auto (Bld) [Volum e fraction]on 10-05-2023 Hematocrit (Bld) [Volume fraction] 29.9 % Low 42.0-54.0 [facility] Hemoglobin [Mass/volume] in Bloodon 10-05-2023 Hemoglobin (Bld) [Mass/Vol] 9.0 g/dL Low 14.0-18.0 [facility] Laboratory - Chemistry and C hemistry - challengeon 10-05-2023 Albumin [Mass/Vol] 2.2 g/dL Low 3.4-5.0 [facility] ALP [Catalytic activity/Vol] 140 U/L High 46-116 [facility] ALT [Catalytic activity/Vol] 18 U/L 16-63 [facility] AST [Catalytic activity/Vol] 22 U/L 15-37 [facility] Bilirubin [Mass/Vol] 0.5 mg/dL 0.2-1.0 [facility] Calcium [Mass/Vol] 9.2 mg/dL 8.5-10.1 [facility] Chloride [Moles/Vol] 100 mmol/L 98-107 [facility] CO2 [Moles/Vol] 22.6 mmol/L 21.0-32.0 [facility] Creatinine [Mass/Vol] 1.74 mg/dL High 0.70-1.30 [facility] GFR/1.73 sq M.predicted MDRD (S/P/Bld) [Vol rate/Area] 49 mL/min/{1.73_m2} Low >=60 [facility] Glucose [Mass/Vol] 162 mg/dL High 74-106 [facility] Magnesium [Mass/Vol] 1.7 mg/dL Low 1.8-2.4 [facility] Potassium [Moles/Vol] 5.3 mmol/L High 3.5-5.1 [facility] Protein [Mass/Vol] 6.9 g/dL 6.4-8.2 [facility] Sodium [Moles/Vol] 133 mmol/L Low 136-145 [facility] Urea nitrogen [Mass/Vol] 30.0 mg/dL High 7.0-18.0 [facility] Urea nitrogen/Creatinine [Mass ratio] 17.2 mg/mg [facility] Laboratory - Hematology and Cell countson 10-05-2023 ESR (Bld) [Velocity] 130 mm/h High <=20 [facility] Immature granulocytes/100 WBC (Bld) 1.3 % High 0.0-0.5 [facility] Leukocytes [#/volume] correc jorge for nucleated erythrocytes in Blood by Automated counon 10-05-2023 WBC corrected for nucl RBC Auto (Bld) [#/Vol] 12.6 10 3/uL High 4.0-11.0 [facility] Lymphocytes Auto (Bld) [#/Vo l]on 10-05-2023 Lymphocytes (Bld) [#/Vol] 1.3 10 3/uL 1.2-3.8 [facility] Lymphocytes/100 WBC Auto (Bl d)on 10-05-2023 Lymphocytes/100 WBC (Bld) 10.1 % Low 20.5-60.0 [facility] MCH Auto (RBC) [Entitic mass ]on 10-05-2023 MCH (RBC) [Entitic mass] 22.7 pg Low 25.9-34.0 [facility] MCHC Auto (RBC) [Mass/Vol]on 10-05-2023 MCHC (RBC) [Mass/Vol] 30.1 g/dL 29.9-35.2 [facility] MCV Auto (RBC) [Entitic vol] on 10-05-2023 MCV (RBC) [Entitic vol] 75.3 fL Low 80.0-94.0 [facility] Monocytes Auto (Bld) [#/Vol] on 10-05-2023 Monocytes (Bld) [#/Vol] 1.4 10 3/uL High 0.3-0.8 [facility] Monocytes/100 WBC Auto (Bld) on 10-05-2023 Monocytes/100 WBC (Bld) 10.9 % 1.7-12.0 [facility] Neutrophils Auto (Bld) [#/Vo l]on 10-05-2023 Neutrophils (Bld) [#/Vol] 9.3 10 3/uL High 1.4-6.5 [facility] Neutrophils/100 WBC Auto (Bl d)on 10-05-2023 Neutrophils/100 WBC (Bld) 73.8 % 43.0-75.0 [facility] No Panel Informationon 10-04 Eosinophils # (Auto) 0.4 10 3/uL 0.0-0.7 [facility] Immature Granulocyte # (Auto) 0.16 10 3/uL High 0.00-0.03 [facility] Platelet mean volume Auto (B ld) [Entitic vol]on 10-05-2023 Platelet mean volume (Bld) [Entitic vol] 11.3 fL 9.5-13.5 [facility] Platelets Auto (Bld) [#/Vol] on 10-05-2023 Platelets (Bld) [#/Vol] 203 10 3/uL 150-450 [facility] RBC Auto (Bld) [#/Vol]on RBC (Bld) [#/Vol] 3.97 10 6/uL Low 4.70-6.10 [facility] Serum or plasma albumin/glob ulin mass ratioon 10-05-2023 Albumin/Globulin [Mass ratio] 0.5 {ratio} [facility] Serum or plasma anion gap de terminationon 10-05-2023 Anion gap [Moles/Vol] 15.7 [facility] Basophils Auto (Bld) [#/Vol] on 10-04-2023 Basophils (Bld) [#/Vol] 0.1 10 3/uL 0.0-0.1 [facility] Basophils/100 WBC Auto (Bld) on 10-04-2023 Basophils/100 WBC (Bld) 0.5 % 0.2-2.0 [facility] Eosinophils/100 WBC Auto (Bl d)on 10-04-2023 Eosinophils/100 WBC (Bld) 3.6 % 0.9-7.0 [facility] Erythrocyte distribution wid th Auto (RBC) [Ratio]on 10-04-2023 Erythrocyte distribution width (RBC) [Ratio] 19.6 % High 11.0-15.0 [facility] Estimated glomerular filtrat ion rate (GFR) non- Americanon 10-04-2023 GFR/1.73 sq M.predicted among non-blacks MDRD (S/P/Bld) [Vol rate/Area] 44 mL/min/{1.73_m2} Low >=60 [facility] Globulin Calc (S) [Mass/Vol] on 10-04-2023 Globulin (S) [Mass/Vol] 4.3 g/dL [facility] Hematocrit Auto (Bld) [Volum e fraction]on 10-04-2023 Hematocrit (Bld) [Volume fraction] 26.8 % Low 42.0-54.0 [facility] Hemoglobin [Mass/volume] in Bloodon 10-04-2023 Hemoglobin (Bld) [Mass/Vol] 7.9 g/dL Low 14.0-18.0 [facility] Laboratory - Chemistry and C hemistry - challengeon 10-04-2023 Albumin [Mass/Vol] 1.9 g/dL Low 3.4-5.0 [facility] ALP [Catalytic activity/Vol] 135 U/L High 46-116 [facility] ALT [Catalytic activity/Vol] 16 U/L 16-63 [facility] AST [Catalytic activity/Vol] 19 U/L 15-37 [facility] Bilirubin [Mass/Vol] 0.4 mg/dL 0.2-1.0 [facility] Calcium [Mass/Vol] 7.8 mg/dL Low 8.5-10.1 [facility] Chloride [Moles/Vol] 102 mmol/L 98-107 [facility] CO2 [Moles/Vol] 25.0 mmol/L 21.0-32.0 [facility] Creatinine [Mass/Vol] 1.61 mg/dL High 0.70-1.30 [facility] GFR/1.73 sq M.predicted MDRD (S/P/Bld) [Vol rate/Area] 54 mL/min/{1.73_m2} Low >=60 [facility] Glucose [Mass/Vol] 136 mg/dL High 74-106 [facility] Magnesium [Mass/Vol] 1.7 mg/dL Low 1.8-2.4 [facility] Potassium [Moles/Vol] 5.1 mmol/L 3.5-5.1 [facility] Protein [Mass/Vol] 6.2 g/dL Low 6.4-8.2 [facility] Sodium [Moles/Vol] 134 mmol/L Low 136-145 [facility] Urea nitrogen [Mass/Vol] 25.0 mg/dL High 7.0-18.0 [facility] Urea nitrogen/Creatinine [Mass ratio] 15.5 mg/mg [facility] Laboratory - Hematology and Cell countson 10-04-2023 ESR (Bld) [Velocity] 117 mm/h High <=20 [facility] Immature granulocytes/100 WBC (Bld) 0.9 % High 0.0-0.5 [facility] Leukocytes [#/volume] correc jorge for nucleated erythrocytes in Blood by Automated counon 10-04-2023 WBC corrected for nucl RBC Auto (Bld) [#/Vol] 11.5 10 3/uL High 4.0-11.0 [facility] Lymphocytes Auto (Bld) [#/Vo l]on 10-04-2023 Lymphocytes (Bld) [#/Vol] 1.3 10 3/uL 1.2-3.8 [facility] Lymphocytes/100 WBC Auto (Bl d)on 10-04-2023 Lymphocytes/100 WBC (Bld) 10.9 % Low 20.5-60.0 [facility] MCH Auto (RBC) [Entitic mass ]on 10-04-2023 MCH (RBC) [Entitic mass] 22.4 pg Low 25.9-34.0 [facility] MCHC Auto (RBC) [Mass/Vol]on 10-04-2023 MCHC (RBC) [Mass/Vol] 29.5 g/dL Low 29.9-35.2 [facility] MCV Auto (RBC) [Entitic vol] on 10-04-2023 MCV (RBC) [Entitic vol] 75.9 fL Low 80.0-94.0 [facility] Monocytes Auto (Bld) [#/Vol] on 10-04-2023 Monocytes (Bld) [#/Vol] 1.4 10 3/uL High 0.3-0.8 [facility] Monocytes/100 WBC Auto (Bld) on 10-04-2023 Monocytes/100 WBC (Bld) 12.4 % High 1.7-12.0 [facility] Neutrophils Auto (Bld) [#/Vo l]on 10-04-2023 Neutrophils (Bld) [#/Vol] 8.3 10 3/uL High 1.4-6.5 [facility] Neutrophils/100 WBC Auto (Bl d)on 10-04-2023 Neutrophils/100 WBC (Bld) 71.7 % 43.0-75.0 [facility] No Panel Informationon 10-03 Eosinophils # (Auto) 0.4 10 3/uL 0.0-0.7 [facility] Immature Granulocyte # (Auto) 0.10 10 3/uL High 0.00-0.03 [facility] Platelet mean volume Auto (B ld) [Entitic vol]on 10-04-2023 Platelet mean volume (Bld) [Entitic vol] 11.5 fL 9.5-13.5 [facility] Platelets Auto (Bld) [#/Vol] on 10-04-2023 Platelets (Bld) [#/Vol] 154 10 3/uL 150-450 [facility] RBC Auto (Bld) [#/Vol]on RBC (Bld) [#/Vol] 3.53 10 6/uL Low 4.70-6.10 [facility] Serum or plasma albumin/glob ulin mass ratioon 10-04-2023 Albumin/Globulin [Mass ratio] 0.4 {ratio} [facility] Serum or plasma anion gap de terminationon 10-04-2023 Anion gap [Moles/Vol] 12.1 mmol/L Fi [facility] Basophils Auto (Bld) [#/Vol] on 10-03-2023 Basophils (Bld) [#/Vol] 0.1 10 3/uL 0.0-0.1 [facility] Basophils/100 WBC Auto (Bld) on 10-03-2023 Basophils/100 WBC (Bld) 0.7 % 0.2-2.0 [facility] Eosinophils/100 WBC Auto (Bl d)on 10-03-2023 Eosinophils/100 WBC (Bld) 2.7 % 0.9-7.0 [facility] Erythrocyte distribution wid th Auto (RBC) [Ratio]on 10-03-2023 Erythrocyte distribution width (RBC) [Ratio] 19.2 % High 11.0-15.0 [facility] Estimated glomerular filtrat ion rate (GFR) non- Americanon 10-03-2023 GFR/1.73 sq M.predicted among non-blacks MDRD (S/P/Bld) [Vol rate/Area] 46 mL/min/{1.73_m2} Low >=60 [facility] Globulin Calc (S) [Mass/Vol] on 10-03-2023 Globulin (S) [Mass/Vol] 4.1 g/dL [facility] Hematocrit Auto (Bld) [Volum e fraction]on 10-03-2023 Hematocrit (Bld) [Volume fraction] 26.4 % Low 42.0-54.0 [facility] Hemoglobin [Mass/volume] in Bloodon 10-03-2023 Hemoglobin (Bld) [Mass/Vol] 8.1 g/dL Low 14.0-18.0 [facility] Laboratory - Chemistry and C hemistry - challengeon 10-03-2023 Albumin [Mass/Vol] 1.9 g/dL Low 3.4-5.0 [facility] ALP [Catalytic activity/Vol] 140 U/L High 46-116 [facility] ALT [Catalytic activity/Vol] 17 U/L 16-63 [facility] AST [Catalytic activity/Vol] 21 U/L 15-37 [facility] Bilirubin [Mass/Vol] 0.3 mg/dL 0.2-1.0 [facility] Calcium [Mass/Vol] 6.7 mg/dL Low 8.5-10.1 [facility] Chloride [Moles/Vol] 101 mmol/L 98-107 [facility] CO2 [Moles/Vol] 23.9 mmol/L 21.0-32.0 [facility] Creatinine [Mass/Vol] 1.57 mg/dL High 0.70-1.30 [facility] GFR/1.73 sq M.predicted MDRD (S/P/Bld) [Vol rate/Area] 55 mL/min/{1.73_m2} Low >=60 [facility] Glucose [Mass/Vol] 142 mg/dL High 74-106 [facility] Magnesium [Mass/Vol] 1.3 mg/dL Low 1.8-2.4 [facility] Potassium [Moles/Vol] 4.8 mmol/L 3.5-5.1 [facility] Protein [Mass/Vol] 6.0 g/dL Low 6.4-8.2 [facility] Sodium [Moles/Vol] 134 mmol/L Low 136-145 [facility] Urea nitrogen [Mass/Vol] 23.0 mg/dL High 7.0-18.0 [facility] Urea nitrogen/Creatinine [Mass ratio] 14.6 mg/mg [facility] Laboratory - Hematology and Cell countson 10-03-2023 ESR (Bld) [Velocity] mm/h High <=20 [facility] Immature granulocytes/100 WBC (Bld) 1.0 % High 0.0-0.5 [facility] Leukocytes [#/volume] correc jorge for nucleated erythrocytes in Blood by Automated counon 10-03-2023 WBC corrected for nucl RBC Auto (Bld) [#/Vol] 11.6 10 3/uL High 4.0-11.0 [facility] Lymphocytes Auto (Bld) [#/Vo l]on 10-03-2023 Lymphocytes (Bld) [#/Vol] 1.4 10 3/uL 1.2-3.8 [facility] Lymphocytes/100 WBC Auto (Bl d)on 10-03-2023 Lymphocytes/100 WBC (Bld) 12.1 % Low 20.5-60.0 [facility] MCH Auto (RBC) [Entitic mass ]on 10-03-2023 MCH (RBC) [Entitic mass] 23.2 pg Low 25.9-34.0 [facility] MCHC Auto (RBC) [Mass/Vol]on 10-03-2023 MCHC (RBC) [Mass/Vol] 30.7 g/dL 29.9-35.2 [facility] MCV Auto (RBC) [Entitic vol] on 10-03-2023 MCV (RBC) [Entitic vol] 75.6 fL Low 80.0-94.0 [facility] Monocytes Auto (Bld) [#/Vol] on 10-03-2023 Monocytes (Bld) [#/Vol] 1.3 10 3/uL High 0.3-0.8 [facility] Monocytes/100 WBC Auto (Bld) on 10-03-2023 Monocytes/100 WBC (Bld) 10.8 % 1.7-12.0 [facility] Neutrophils Auto (Bld) [#/Vo l]on 10-03-2023 Neutrophils (Bld) [#/Vol] 8.5 10 3/uL High 1.4-6.5 [facility] Neutrophils/100 WBC Auto (Bl d)on 10-03-2023 Neutrophils/100 WBC (Bld) 72.7 % 43.0-75.0 [facility] No Panel Informationon 10-02 Eosinophils # (Auto) 0.3 10 3/uL 0.0-0.7 [facility] Immature Granulocyte # (Auto) 0.12 10 3/uL High 0.00-0.03 [facility] Platelet mean volume Auto (B ld) [Entitic vol]on 10-03-2023 Platelet mean volume (Bld) [Entitic vol] 11.3 fL 9.5-13.5 [facility] Platelets Auto (Bld) [#/Vol] on 10-03-2023 Platelets (Bld) [#/Vol] 141 10 3/uL Low 150-450 [facility] RBC Auto (Bld) [#/Vol]on RBC (Bld) [#/Vol] 3.49 10 6/uL Low 4.70-6.10 [facility] Serum or plasma albumin/glob ulin mass ratioon 10-03-2023 Albumin/Globulin [Mass ratio] 0.5 {ratio} [facility] Serum or plasma anion gap de terminationon 10-03-2023 Anion gap [Moles/Vol] 13.9 [facility] Basophils Auto (Bld) [#/Vol] on 10-02-2023 Basophils (Bld) [#/Vol] 0.0 10 3/uL 0.0-0.1 [facility] Basophils/100 WBC Auto (Bld) on 10-02-2023 Basophils/100 WBC (Bld) 0.4 % 0.2-2.0 [facility] Eosinophils/100 WBC Auto (Bl d)on 10-02-2023 Eosinophils/100 WBC (Bld) 2.2 % 0.9-7.0 [facility] Erythrocyte distribution wid th Auto (RBC) [Ratio]on 10-02-2023 Erythrocyte distribution width (RBC) [Ratio] 19.3 % High 11.0-15.0 [facility] Estimated glomerular filtrat ion rate (GFR) non- Americanon 10-02-2023 GFR/1.73 sq M.predicted among non-blacks MDRD (S/P/Bld) [Vol rate/Area] 41 mL/min/{1.73_m2} Low >=60 [facility] Globulin Calc (S) [Mass/Vol] on 10-02-2023 Globulin (S) [Mass/Vol] 4.2 g/dL [facility] Hematocrit Auto (Bld) [Volum e fraction]on 10-02-2023 Hematocrit (Bld) [Volume fraction] 26.1 % Low 42.0-54.0 [facility] Hemoglobin [Mass/volume] in Bloodon 10-02-2023 Hemoglobin (Bld) [Mass/Vol] 7.8 g/dL Low 14.0-18.0 [facility] Laboratory - Chemistry and C hemistry - challengeon 10-02-2023 Albumin [Mass/Vol] 2.1 g/dL Low 3.4-5.0 [facility] ALP [Catalytic activity/Vol] 131 U/L High 46-116 [facility] ALT [Catalytic activity/Vol] 17 U/L 16-63 [facility] AST [Catalytic activity/Vol] 13 U/L Low 15-37 [facility] Bilirubin [Mass/Vol] 0.3 mg/dL 0.2-1.0 [facility] Calcium [Mass/Vol] 6.6 mg/dL Low 8.5-10.1 [facility] Chloride [Moles/Vol] 105 mmol/L 98-107 [facility] CO2 [Moles/Vol] 24.3 mmol/L 21.0-32.0 [facility] Creatinine [Mass/Vol] 1.72 mg/dL High 0.70-1.30 [facility] GFR/1.73 sq M.predicted MDRD (S/P/Bld) [Vol rate/Area] 50 mL/min/{1.73_m2} Low >=60 [facility] Glucose [Mass/Vol] 156 mg/dL High 74-106 [facility] Magnesium [Mass/Vol] 1.5 mg/dL Low 1.8-2.4 [facility] Potassium [Moles/Vol] 4.0 mmol/L 3.5-5.1 [facility] Protein [Mass/Vol] 6.3 g/dL Low 6.4-8.2 [facility] Sodium [Moles/Vol] 139 mmol/L 136-145 [facility] Urea nitrogen [Mass/Vol] 27.0 mg/dL High 7.0-18.0 [facility] Urea nitrogen/Creatinine [Mass ratio] 15.7 mg/mg [facility] Laboratory - Hematology and Cell countson 10-02-2023 Immature granulocytes/100 WBC (Bld) 0.4 % 0.0-0.5 [facility] ESR (Bld) [Velocity] 110 mm/h High <=20 [facility] Laboratory - Microbiology an d Antimicrobial susceptibilityOrdered By: Truman Bryant on 10-02-2023 Microscopic observation Gram stain Nom (Unsp spec) [facility] Leukocytes [#/volume] correc jorge for nucleated erythrocytes in Blood by Automated counon 10-02-2023 WBC corrected for nucl RBC Auto (Bld) [#/Vol] 8.5 10 3/uL 4.0-11.0 [facility] Lymphocytes Auto (Bld) [#/Vo l]on 10-02-2023 Lymphocytes (Bld) [#/Vol] 1.5 10 3/uL 1.2-3.8 [facility] Lymphocytes/100 WBC Auto (Bl d)on 10-02-2023 Lymphocytes/100 WBC (Bld) 17.3 % Low 20.5-60.0 [facility] MCH Auto (RBC) [Entitic mass ]on 10-02-2023 MCH (RBC) [Entitic mass] 22.5 pg Low 25.9-34.0 [facility] MCHC Auto (RBC) [Mass/Vol]on 10-02-2023 MCHC (RBC) [Mass/Vol] 29.9 g/dL 29.9-35.2 [facility] MCV Auto (RBC) [Entitic vol] on 10-02-2023 MCV (RBC) [Entitic vol] 75.2 fL Low 80.0-94.0 [facility] Monocytes Auto (Bld) [#/Vol] on 10-02-2023 Monocytes (Bld) [#/Vol] 0.8 10 3/uL 0.3-0.8 [facility] Monocytes/100 WBC Auto (Bld) on 10-02-2023 Monocytes/100 WBC (Bld) 9.1 % 1.7-12.0 [facility] Neutrophils Auto (Bld) [#/Vo l]on 10-02-2023 Neutrophils (Bld) [#/Vol] 6.0 10 3/uL 1.4-6.5 [facility] Neutrophils/100 WBC Auto (Bl d)on 10-02-2023 Neutrophils/100 WBC (Bld) 70.6 % 43.0-75.0 [facility] No Panel Informationon 10-01 Eosinophils # (Auto) 0.2 10 3/uL 0.0-0.7 [facility] Immature Granulocyte # (Auto) 0.03 10 3/uL 0.00-0.03 [facility] Misc[facility] Test Comment See comment [facility] Comment on above: Specimen Source: JONO TRT - Foot Right - Foot Rt - 604.000 No Panel InformationOrdered By: Truman Bryant on 10-02-2023 Tissue Culture [facility] No Panel InformationOrdered By: Paula Soto on 10-02-2023 Acid Fast Smear [facility] AFB Specimen Processing [facility] Platelet mean volume Auto (B ld) [Entitic vol]on 10-02-2023 Platelet mean volume (Bld) [Entitic vol] 10.6 fL 9.5-13.5 [facility] Platelets Auto (Bld) [#/Vol] on 10-02-2023 Platelets (Bld) [#/Vol] 142 10 3/uL Low 150-450 [facility] RBC Auto (Bld) [#/Vol]on RBC (Bld) [#/Vol] 3.47 10 6/uL Low 4.70-6.10 [facility] Serum or plasma albumin/glob ulin mass ratioon 10-02-2023 Albumin/Globulin [Mass ratio] 0.5 {ratio} [facility] Serum or plasma anion gap de terminationon 10-02-2023 Anion gap [Moles/Vol] 13.7 mmol/[facility] Bas[facility] Auto (Bld) [#/Vol] on 10-01-2023 Basophils (Bld) [#/Vol] 0.0 10 3/uL 0.0-0.1 [facility] Basophils/100 WBC Auto (Bld) on 10-01-2023 Basophils/100 WBC (Bld) 0.4 % 0.2-2.0 [facility] Eosinophils/100 WBC Auto (Bl d)on 10-01-2023 Eosinophils/100 WBC (Bld) 1.7 % 0.9-7.0 [facility] Erythrocyte distribution wid th Auto (RBC) [Ratio]on 10-01-2023 Erythrocyte distribution width (RBC) [Ratio] 18.5 % High 11.0-15.0 [facility] Estimated glomerular filtrat ion rate (GFR) non- Americanon 10-01-2023 GFR/1.73 sq M.predicted among non-blacks MDRD (S/P/Bld) [Vol rate/Area] 27 mL/min/{1.73_m2} Low >=60 [facility] Globulin Calc (S) [Mass/Vol] on 10-01-2023 Globulin (S) [Mass/Vol] 4.0 g/dL [facility] Hematocrit Auto (Bld) [Volum e fraction]on 10-01-2023 Hematocrit (Bld) [Volume fraction] 26.5 % Low 42.0-54.0 [facility] Hemoglobin [Mass/volume] in Bloodon 10-01-2023 Hemoglobin (Bld) [Mass/Vol] 8.0 g/dL Low 14.0-18.0 [facility] Laboratory - Chemistry and C hemistry - challengeon 10-01-2023 Lactate [Moles/Vol] 1.8 mmol/L 0.4-2.0 [facility] Albumin [Mass/Vol] 1.9 g/dL Low 3.4-5.0 [facility] ALP [Catalytic activity/Vol] 113 U/L 46-116 [facility] ALT [Catalytic activity/Vol] 17 U/L 16-63 [facility] AST [Catalytic activity/Vol] 14 U/L Low 15-37 [facility] Bilirubin [Mass/Vol] 0.3 mg/dL 0.2-1.0 [facility] Calcium [Mass/Vol] 5.7 mg/dL Low 8.5-10.1 [facility] Comment on above: RESULTS CALLED TO Patricio Tsang)@BY Marybel Hawkins MLT at 0619 Chloride [Moles/Vol] 102 mmol/L 98-107 [facility] CO2 [Moles/Vol] 20.4 mmol/L Low 21.0-32.0 [facility] Creatinine [Mass/Vol] 2.46 mg/dL High 0.70-1.30 [facility] GFR/1.73 sq M.predicted MDRD (S/P/Bld) [Vol rate/Area] 33 mL/min/{1.73_m2} Low >=60 [facility] Glucose [Mass/Vol] 67 mg/dL Low 74-106 [facility] Magnesium [Mass/Vol] 0.8 mg/dL Low 1.8-2.4 [facility] Comment on above: RESULTS CALLED TO Patricio CORREA)@BY SO[address] Way at 0601 Potassium [Moles/Vol] 3.1 mmol/L Low 3.5-5.1 [facility] Protein [Mass/Vol] 5.9 g/dL Low 6.4-8.2 [facility] Sodium [Moles/Vol] 138 mmol/L 136-145 [facility] Urea nitrogen [Mass/Vol] 28.0 mg/dL High 7.0-18.0 [facility] Urea nitrogen/Creatinine [Mass ratio] 11.4 mg/mg [facility] Laboratory - Hematology and Cell countson 10-01-2023 ESR (Bld) [Velocity] 96 mm/h High <=20 [facility] Immature granulocytes/100 WBC (Bld) 0.6 % High 0.0-0.5 [facility] Leukocytes [#/volume] correc jorge for nucleated erythrocytes in Blood by Automated counon 10-01-2023 WBC corrected for nucl RBC Auto (Bld) [#/Vol] 10.0 10 3/uL 4.0-11.0 [facility] Lymphocytes Auto (Bld) [#/Vo l]on 10-01-2023 Lymphocytes (Bld) [#/Vol] 1.3 10 3/uL 1.2-3.8 [facility] Lymphocytes/100 WBC Auto (Bl d)on 10-01-2023 Lymphocytes/100 WBC (Bld) 12.8 % Low 20.5-60.0 [facility] MCH Auto (RBC) [Entitic mass ]on 10-01-2023 MCH (RBC) [Entitic mass] 22.4 pg Low 25.9-34.0 [facility] MCHC Auto (RBC) [Mass/Vol]on 10-01-2023 MCHC (RBC) [Mass/Vol] 30.2 g/dL 29.9-35.2 [facility] MCV Auto (RBC) [Entitic vol] on 10-01-2023 MCV (RBC) [Entitic vol] 74.2 fL Low 80.0-94.0 [facility] Monocytes Auto (Bld) [#/Vol] on 10-01-2023 Monocytes (Bld) [#/Vol] 0.7 10 3/uL 0.3-0.8 [facility] Monocytes/100 WBC Auto (Bld) on 10-01-2023 Monocytes/100 WBC (Bld) 6.9 % 1.7-12.0 [facility] Neutrophils Auto (Bld) [#/Vo l]on 10-01-2023 Neutrophils (Bld) [#/Vol] 7.8 10 3/uL High 1.4-6.5 [facility] Neutrophils/100 WBC Auto (Bl d)on 10-01-2023 Neutrophils/100 WBC (Bld) 77.6 % High 43.0-75.0 [facility] No Panel Informationon 09-30 C-Reactive Protein, Quantitative 10.58 mg/dL High <=0.50 [facility] Eosinophils # (Auto) 0.2 10 3/uL 0.0-0.7 [facility] Immature Granulocyte # (Auto) 0.06 10 3/uL High 0.00-0.03 [facility] Troponin I High Sensitivity 8.3 pg/mL 4.0-76.1 [facility] Comment on above: CUT-OFF POINTS HAVE [...] Partial Pressure CO2 30.4 mm[Hg] Low 40.0-52.0 [facility] Venous Blood pH 7.421 7.330-7.43 0 [facility] Platelet mean volume Auto (B ld) [Entitic vol]on 10-01-2023 Platelet mean volume (Bld) [Entitic vol] 11.2 fL 9.5-13.5 [facility] Platelets Auto (Bld) [#/Vol] on 10-01-2023 Platelets (Bld) [#/Vol] 164 10 3/uL 150-450 [facility] RBC Auto (Bld) [#/Vol]on RBC (Bld) [#/Vol] 3.57 10 6/uL Low 4.70-6.10 [facility] Serum or plasma albumin/glob ulin mass ratioon 10-01-2023 Albumin/Globulin [Mass ratio] 0.5 {ratio} [facility] Serum or plasma anion gap de terminationon 10-01-2023 Anion gap [Moles/Vol] 18.7 mmol/[facility] Automated epithelial cells c ount in urine sediment (number/area)on 09-30-2023 Epithelial cells Auto (Urine sed) [#/Area] NONE SEEN #/LPF NONE/RARE [facility] Automated leukocytes count i n urine sediment (number/area)on 09-30-2023 WBC Auto (Urine sed) [#/Area] NONE SEEN #/HPF 0-2 [facility] Automated urine specific gra vity by refractometryon 09-30-2023 Specific gravity Refractometry automated (U) [Rel density] <=1.005 Abnormal 1.005-1.02 5 [facility] Basophils Auto (Bld) [#/Vol] on 09-30-2023 Basophils (Bld) [#/Vol] 0.1 10 3/uL 0.0-0.1 [facility] Basophils/100 WBC Auto (Bld) on 09-30-2023 Basophils/100 WBC (Bld) 0.4 % 0.2-2.0 [facility] Bilirubin Auto test strip (U ) [Mass/Vol]on 09-30-2023 Bilirubin (U) [Mass/Vol] Negative NEGATIVE [facility] Casts typing in urine sedime nt by light microscopyon 09-30-2023 Casts LM Nom (Urine sed) NONE SEEN #/LPF NONE SEEN [facility] Color Auto (U)on 09-30-2023 Color (U) LT. YELLOW YELLOW [facility] Eosinophils/100 WBC Auto (Bl d)on 09-30-2023 Eosinophils/100 WBC (Bld) 1.4 % 0.9-7.0 [facility] Erythrocyte distribution wid th Auto (RBC) [Ratio]on 09-30-2023 Erythrocyte distribution width (RBC) [Ratio] 19.0 % High 11.0-15.0 [facility] Estimated glomerular filtrat ion rate (GFR) non- Americanon 09-30-2023 GFR/1.73 sq M.predicted among non-blacks MDRD (S/P/Bld) [Vol rate/Area] 19 mL/min/{1.73_m2} Low >=60 [facility] Globulin Calc (S) [Mass/Vol] on 09-30-2023 Globulin (S) [Mass/Vol] 4.8 g/dL [facility] Hematocrit Auto (Bld) [Volum e fraction]on 09-30-2023 Hematocrit (Bld) [Volume fraction] 32.9 % Low 42.0-54.0 [facility] Hemoglobin [Mass/volume] in Bloodon 09-30-2023 Hemoglobin (Bld) [Mass/Vol] 10.0 g/dL Low 14.0-18.0 [facility] INR in Platelet poor plasma by Coagulation assayon 09-30-2023 INR Coag (PPP) [Relative time] 1.23 {INR} [facility] Comment on above: DESIRED INR:2.0-3.0 CONDITIONS NOT LISTED BELOW2.5-3.5 FOR PROSTHETIC HEART VALVE REPLACEMENT2.5-3.5 RECURRENT THROMBOSIS Ketones Auto test strip (U) [Mass/Vol]on 09-30-2023 Ketones (U) [Mass/Vol] Negative NEGATIVE [facility] Laboratory - Chemistry and C hemistry - challengeon 09-30-2023 Lactate [Moles/Vol] 4.2 mmol/L High 0.4-2.0 [facility] Comment on above: RESULTS CALLED TO Patricio Genao (RN)@BY [address] Way at 2312 Albumin [Mass/Vol] 2.4 g/dL Low 3.4-5.0 [facility] ALP [Catalytic activity/Vol] 145 U/L High 46-116 [facility] ALT [Catalytic activity/Vol] 17 U/L 16-63 [facility] AST [Catalytic activity/Vol] 21 U/L 15-37 [facility] Bilirubin [Mass/Vol] 0.4 mg/dL 0.2-1.0 [facility] Calcium [Mass/Vol] 5.8 mg/dL Low 8.5-10.1 [facility] Comment on above: RESULTS CALLED TO AM Bartolome CASTANON @BY Verona Hanson at 1645 Chloride [Moles/Vol] 97 mmol/L Low 98-107 [facility] CO2 [Moles/Vol] 18.3 mmol/L Low 21.0-32.0 [facility] Creatinine [Mass/Vol] 3.43 mg/dL High 0.70-1.30 [facility] GFR/1.73 sq M.predicted MDRD (S/P/Bld) [Vol rate/Area] 22 mL/min/{1.73_m2} Low >=60 [facility] Glucose [Mass/Vol] 208 mg/dL High 74-106 [facility] Magnesium [Mass/Vol] 0.5 mg/dL Low 1.8-2.4 [facility] Comment on above: RESULTS CALLED TO Am bartolome Castanon @BY Marybel Hawkins, EXTRACTOR MACHINE OPERATOR [id number] Natriuretic peptide B (Bld) [Mass/Vol] 611.0 pg/mL <=900.0 [facility] Potassium [Moles/Vol] 3.9 mmol/L 3.5-5.1 [facility] Protein [Mass/Vol] 7.2 g/dL 6.4-8.2 [facility] Sodium [Moles/Vol] 137 mmol/L 136-145 [facility] Urea nitrogen [Mass/Vol] 34.0 mg/dL High 7.0-18.0 [facility] Urea nitrogen/Creatinine [Mass ratio] 9.9 mg/mg [facility] Laboratory - Hematology and Cell countson 09-30-2023 ESR (Bld) [Velocity] 130 mm/h High <=20 [facility] Immature granulocytes/100 WBC (Bld) 0.6 % High 0.0-0.5 [facility] Leukocytes [#/volume] correc jorge for nucleated erythrocytes in Blood by Automated counon 09-30-2023 WBC corrected for nucl RBC Auto (Bld) [#/Vol] 13.9 10 3/uL High 4.0-11.0 [facility] Lymphocytes Auto (Bld) [#/Vo l]on 09-30-2023 Lymphocytes (Bld) [#/Vol] 1.4 10 3/uL 1.2-3.8 [facility] Lymphocytes/100 WBC Auto (Bl d)on 09-30-2023 Lymphocytes/100 WBC (Bld) 10.1 % Low 20.5-60.0 [facility] MCH Auto (RBC) [Entitic mass ]on 09-30-2023 MCH (RBC) [Entitic mass] 22.7 pg Low 25.9-34.0 [facility] MCHC Auto (RBC) [Mass/Vol]on 09-30-2023 MCHC (RBC) [Mass/Vol] 30.4 g/dL 29.9-35.2 [facility] MCV Auto (RBC) [Entitic vol] on 09-30-2023 MCV (RBC) [Entitic vol] 74.6 fL Low 80.0-94.0 [facility] Monocytes Auto (Bld) [#/Vol] on 09-30-2023 Monocytes (Bld) [#/Vol] 0.9 10 3/uL High 0.3-0.8 [facility] Monocytes/100 WBC Auto (Bld) on 09-30-2023 Monocytes/100 WBC (Bld) 6.7 % 1.7-12.0 [facility] Mucus LM Ql (Urine sed)on Mucus Ql (Urine sed) NONE SEEN NONE SEEN [facility] Neutrophils Auto (Bld) [#/Vo l]on 09-30-2023 Neutrophils (Bld) [#/Vol] 11.2 10 3/uL High 1.4-6.5 [facility] Neutrophils/100 WBC Auto (Bl d)on 09-30-2023 Neutrophils/100 WBC (Bld) 80.8 % High 43.0-75.0 [facility] No Panel Informationon 09-29 Troponin I High Sensitivity 7.9 pg/mL 4.0-76.1 [facility] Comment on above: CUT-OFF POINTS HAVE [...] Partial Pressure CO2 29.6 mm[Hg] Low 40.0-52.0 [facility] Venous Blood pH 7.405 7.330-7.43 0 [facility] Urine Culture Reflexed NO [facility] C-Reactive Protein, Quantitative 14.76 mg/dL High <=0.50 [facility] Eosinophils # (Auto) 0.2 10 3/uL 0.0-0.7 [facility] Immature Granulocyte # (Auto) 0.09 10 3/uL High 0.00-0.03 [facility] No Panel InformationOrdered By: Chandrika Castanon on 09-30-2023 Blood Culture 2 [facility] Wound Culture [facility] Blood Culture 1 [facility] Platelet mean volume Auto (B ld) [Entitic vol]on 09-30-2023 Platelet mean volume (Bld) [Entitic vol] 10.9 fL 9.5-13.5 [facility] Platelets Auto (Bld) [#/Vol] on 09-30-2023 Platelets (Bld) [#/Vol] 227 10 3/uL 150-450 [facility] Protein Auto test strip (U) [Mass/Vol]on 09-30-2023 Protein (U) [Mass/Vol] Negative NEG/TRACE [facility] Prothrombin time (PT)on 09-04 PT Coag (PPP) [Time] 12.9 s High 9.0-11.6 [facility] RBC Auto (Bld) [#/Vol]on RBC (Bld) [#/Vol] 4.41 10 6/uL Low 4.70-6.10 [facility] Serum or plasma albumin/glob ulin mass ratioon 09-30-2023 Albumin/Globulin [Mass ratio] 0.5 {ratio} [facility] Serum or plasma anion gap de terminationon 09-30-2023 Anion gap [Moles/Vol] 25.6 mmol/L [facility] Specific gravity Auto test s trip (U) [Rel density]on 09-30-2023 Specific gravity (U) [Rel density] CLEAR CLEAR [facility] Urine bacteria detection by automated methodon 09-30-2023 Bacteria Auto Ql (U) NONE SEEN #/HPF NONE SEEN [facility] Urine glucose measurement by test strip (mass/volume)on 09-30-2023 Glucose Test strip (U) [Mass/Vol] 500 mg/dL Abnormal NEGATIVE [facility] Urine hemoglobin detection b y automated test stripon 09-30-2023 Hemoglobin Auto test strip Ql (U) TRACE-I NEGATIVE [facility] Urine nitrite detection by a utomated test stripon 09-30-2023 Nitrite Auto test strip Ql (U) Negative NEGATIVE [facility] Urine sediment crystal ident ification by light microscopyon 09-30-2023 Crystals LM Nom (Urine sed) None Seen #/HPF None Seen [facility] Urine sediment leukocyte cou nt by microscopy (number/high power field)on 09-30-2023 WBC LM.HPF (Urine sed) [#/Area] NONE SEEN #/HPF NONE SEEN [facility] Urobilinogen Auto test strip (U) [Mass/Vol]on 09-30-2023 Urobilinogen Qn (U) 0.2 {Brendan'U}/dL 0.2-1.0 [facility] pH Auto test strip (U)on pH (U) 5.5 [pH] 5.0-9.0 [facility] Laboratory - Microbiology an d Antimicrobial susceptibilityOrdered By: Teresa Lynch on 09-21-2023 Microscopic observation Gram stain Nom (Unsp spec) [facility] Activated partial thrombopla stin time (aPTT) in platelet poor plasma by coagulation aon 09-18-2023 aPTT Coag (PPP) [Time] 32.0 s 22.3-36.2 [facility] Basophils Auto (Bld) [#/Vol] on 09-18-2023 Basophils (Bld) [#/Vol] 0.1 10 3/uL 0.0-0.1 [facility] Basophils/100 WBC Auto (Bld) on 09-18-2023 Basophils/100 WBC (Bld) 0.9 % 0.2-2.0 [facility] Eosinophils/100 WBC Auto (Bl d)on 09-18-2023 Eosinophils/100 WBC (Bld) 2.3 % 0.9-7.0 [facility] Erythrocyte distribution wid th Auto (RBC) [Ratio]on 09-18-2023 Erythrocyte distribution width (RBC) [Ratio] 18.8 % High 11.0-15.0 [facility] Estimated glomerular filtrat ion rate (GFR) non- Americanon 09-18-2023 GFR/1.73 sq M.predicted among non-blacks MDRD (S/P/Bld) [Vol rate/Area] 27 mL/min/{1.73_m2} Low >=60 [facility] Hematocrit Auto (Bld) [Volum e fraction]on 09-18-2023 Hematocrit (Bld) [Volume fraction] 35.0 % Low 42.0-54.0 [facility] Hemoglobin [Mass/volume] in Bloodon 09-18-2023 Hemoglobin (Bld) [Mass/Vol] 10.3 g/dL Low 14.0-18.0 [facility] INR in Platelet poor plasma by Coagulation assayon 09-18-2023 INR Coag (PPP) [Relative time] 1.08 {INR} [facility] Comment on above: DESIRED INR:2.0-3.0 CONDITIONS NOT LISTED BELOW2.5-3.5 FOR PROSTHETIC HEART VALVE REPLACEMENT2.5-3.5 [facility] Laboratory - Chemistry and C hemistry - challengeon 09-18-2023 Calcium [Mass/Vol] 8.9 mg/dL 8.5-10.1 [facility] Chloride [Moles/Vol] 97 mmol/L Low 98-107 [facility] CO2 [Moles/Vol] 28.2 mmol/L 21.0-32.0 [facility] Creatinine [Mass/Vol] 2.47 mg/dL High 0.70-1.30 [facility] GFR/1.73 sq M.predicted MDRD (S/P/Bld) [Vol rate/Area] 33 mL/min/{1.73_m2} Low >=60 [facility] Glucose [Mass/Vol] 200 mg/dL High 74-106 [facility] Potassium [Moles/Vol] 3.7 mmol/L 3.5-5.1 [facility] Sodium [Moles/Vol] 137 mmol/L 136-145 [facility] Urea nitrogen [Mass/Vol] 23.0 mg/dL High 7.0-18.0 [facility] Urea nitrogen/Creatinine [Mass ratio] 9.3 mg/mg [facility] Laboratory - Hematology and Cell countson 09-18-2023 Immature granulocytes/100 WBC (Bld) 0.6 % High 0.0-0.5 [facility] Leukocytes [#/volume] correc jorge for nucleated erythrocytes in Blood by Automated counon 09-18-2023 WBC corrected for nucl RBC Auto (Bld) [#/Vol] 12.4 10 3/uL High 4.0-11.0 [facility] Lymphocytes Auto (Bld) [#/Vo l]on 09-18-2023 Lymphocytes (Bld) [#/Vol] 2.4 10 3/uL 1.2-3.8 [facility] Lymphocytes/100 WBC Auto (Bl d)on 09-18-2023 Lymphocytes/100 WBC (Bld) 19.6 % Low 20.5-60.0 [facility] MCH Auto (RBC) [Entitic mass ]on 09-18-2023 MCH (RBC) [Entitic mass] 22.2 pg Low 25.9-34.0 [facility] MCHC Auto (RBC) [Mass/Vol]on 09-18-2023 MCHC (RBC) [Mass/Vol] 29.4 g/dL Low 29.9-35.2 [facility] MCV Auto (RBC) [Entitic vol] on 09-18-2023 MCV (RBC) [Entitic vol] 75.3 fL Low 80.0-94.0 [facility] Monocytes Auto (Bld) [#/Vol] on 09-18-2023 Monocytes (Bld) [#/Vol] 1.2 10 3/uL High 0.3-0.8 [facility] Monocytes/100 WBC Auto (Bld) on 09-18-2023 Monocytes/100 WBC (Bld) 10.0 % 1.7-12.0 [facility] Neutrophils Auto (Bld) [#/Vo l]on 09-18-2023 Neutrophils (Bld) [#/Vol] 8.2 10 3/uL High 1.4-6.5 [facility] Neutrophils/100 WBC Auto (Bl d)on 09-18-2023 Neutrophils/100 WBC (Bld) 66.6 % 43.0-75.0 [facility] No Panel Informationon 09-17 Eosinophils # (Auto) 0.3 10 3/uL 0.0-0.7 [facility] Immature Granulocyte # (Auto) 0.07 10 3/uL High 0.00-0.03 [facility] Platelet mean volume Auto (B ld) [Entitic vol]on 09-18-2023 Platelet mean volume (Bld) [Entitic vol] 10.9 fL 9.5-13.5 [facility] Platelets Auto (Bld) [#/Vol] on 09-18-2023 Platelets (Bld) [#/Vol] 300 10 3/uL 150-450 [facility] Prothrombin time (PT)on 09-03 PT Coag (PPP) [Time] 11.4 s 9.0-11.6 [facility] RBC Auto (Bld) [#/Vol]on RBC (Bld) [#/Vol] 4.65 10 6/uL Low 4.70-6.10 [facility] Serum or plasma anion gap de terminationon 09-18-2023 Anion gap [Moles/Vol] 15.5 mmol/L [facility] Laboratory - Microbiology an d Antimicrobial susceptibilityOrdered By: Teresa Lynch on 08-10-2023 Microscopic observation Gram stain Nom (Unsp spec) [facility] No Panel Informationon 08-09 Fungal Smear Result [facility] Miscellaneous Test Comment See comment [facility] Comment on above: Specimen Source: JONO TRT - Foot Right - Foot Rt - 604.000 No Panel InformationOrdered By: Teresa Lynch on 08-10-2023 [facility] Smear [facility] AFB Specimen Processing [facility] Tissue Culture [facility] Basophils Auto (Bld) [#/Vol] on 08-07-2023 Basophils (Bld) [#/Vol] 0.1 10 3/uL 0.0-0.1 [facility] Basophils/100 WBC Auto (Bld) on 08-07-2023 Basophils/100 WBC (Bld) 0.7 % 0.2-2.0 [facility] Eosinophils/100 WBC Auto (Bl d)on 08-07-2023 Eosinophils/100 WBC (Bld) 3.9 % 0.9-7.0 [facility] Erythrocyte distribution wid th Auto (RBC) [Ratio]on 08-07-2023 Erythrocyte distribution width (RBC) [Ratio] 16.9 % 11.0-15.0 [facility] Estimated glomerular filtrat ion rate (GFR) non- Americanon 08-07-2023 GFR/1.73 sq M.predicted among non-blacks MDRD (S/P/Bld) [Vol rate/Area] 42 mL/min/{1.73_m2} >=60 [facility] Globulin Calc (S) [Mass/Vol] on 08-07-2023 Globulin (S) [Mass/Vol] 4.0 g/dL [facility] Hematocrit Auto (Bld) [Volum e fraction]on 08-07-2023 Hematocrit (Bld) [Volume fraction] 31.5 % 42.0-54.0 [facility] Hemoglobin [Mass/volume] in Bloodon 08-07-2023 Hemoglobin (Bld) [Mass/Vol] 9.4 g/dL 14.0-18.0 [facility] Laboratory - Chemistry and C hemistry - challengeon 08-07-2023 Albumin [Mass/Vol] 2.1 g/dL 3.4-5.0 [facility] ALP [Catalytic activity/Vol] 144 U/L 46-116 [facility] ALT [Catalytic activity/Vol] 21 U/L 16-63 [facility] AST [Catalytic activity/Vol] 25 U/L 15-37 [facility] Bilirubin [Mass/Vol] 0.4 mg/dL 0.2-1.0 [facility] Calcium [Mass/Vol] 8.1 mg/dL 8.5-10.1 [facility] Chloride [Moles/Vol] 102 mmol/L 98-107 [facility] CO2 [Moles/Vol] 24.7 mmol/L 21.0-32.0 [facility] Creatinine [Mass/Vol] 1.70 mg/dL 0.70-1.30 [facility] GFR/1.73 sq M.predicted MDRD (S/P/Bld) [Vol rate/Area] 50 mL/min/{1.73_m2} >=60 [facility] Glucose [Mass/Vol] 188 mg/dL 74-106 [facility] Potassium [Moles/Vol] 4.6 mmol/L 3.5-5.1 [facility] Protein [Mass/Vol] 6.1 g/dL 6.4-8.2 [facility] Sodium [Moles/Vol] 135 mmol/L 136-145 [facility] Urea nitrogen [Mass/Vol] 33.0 mg/dL 7.0-18.0 [facility] Urea nitrogen/Creatinine [Mass ratio] 19.4 mg/mg [facility] Laboratory - Hematology and Cell countson 08-07-2023 Immature granulocytes/100 WBC (Bld) 0.7 % 0.0-0.5 [facility] Leukocytes [#/volume] correc jorge for nucleated erythrocytes in Blood by Automated counon 08-07-2023 WBC corrected for nucl RBC Auto (Bld) [#/Vol] 12.0 10 3/uL 4.0-11.0 [facility] Lymphocytes Auto (Bld) [#/Vo l]on 08-07-2023 Lymphocytes (Bld) [#/Vol] 1.5 10 3/uL 1.2-3.8 [facility] Lymphocytes/100 WBC Auto (Bl d)on 08-07-2023 Lymphocytes/100 WBC (Bld) 12.4 % 20.5-60.0 [facility] MCH Auto (RBC) [Entitic mass ]on 08-07-2023 MCH (RBC) [Entitic mass] 22.5 pg 25.9-34.0 [facility] MCHC Auto (RBC) [Mass/Vol]on 08-07-2023 MCHC (RBC) [Mass/Vol] 29.8 g/dL 29.9-35.2 [facility] MCV Auto (RBC) [Entitic vol] on 08-07-2023 MCV (RBC) [Entitic vol] 75.4 fL 80.0-94.0 [facility] Monocytes Auto (Bld) [#/Vol] on 08-07-2023 Monocytes (Bld) [#/Vol] 1.2 10 3/uL 0.3-0.8 [facility] Monocytes/100 WBC Auto (Bld) on 08-07-2023 Monocytes/100 WBC (Bld) 10.1 % 1.7-12.0 [facility] Neutrophils Auto (Bld) [#/Vo l]on 08-07-2023 Neutrophils (Bld) [#/Vol] 8.7 10 3/uL 1.4-6.5 [facility] Neutrophils/100 WBC Auto (Bl d)on 08-07-2023 Neutrophils/100 WBC (Bld) 72.2 % 43.0-75.0 [facility] No Panel Informationon 08-06 Eosinophils # (Auto) 0.5 10 3/uL 0.0-0.7 [facility] Immature Granulocyte # (Auto) 0.09 10 3/uL 0.00-0.03 [facility] Platelet mean volume Auto (B ld) [Entitic vol]on 08-07-2023 Platelet mean volume (Bld) [Entitic vol] 11.7 fL 9.5-13.5 [facility] Platelets Auto (Bld) [#/Vol] on 08-07-2023 Platelets (Bld) [#/Vol] 222 10 3/uL 150-450 [facility] RBC Auto (Bld) [#/Vol]on RBC (Bld) [#/Vol] 4.18 10 6/uL 4.70-6.10 [facility] Serum or plasma albumin/glob ulin mass ratioon 08-07-2023 Albumin/Globulin [Mass ratio] 0.5 {ratio} [facility] Serum or plasma anion gap de terminationon 08-07-2023 Anion gap [Moles/Vol] 12.9 [facility] Basophils Auto (Bld) [#/Vol] on 08-06-2023 Basophils (Bld) [#/Vol] 0.1 10 3/uL 0.0-0.1 [facility] Basophils/100 WBC Auto (Bld) on 08-06-2023 Basophils/100 WBC (Bld) 0.7 % 0.2-2.0 [facility] Eosinophils/100 WBC Auto (Bl d)on 08-06-2023 Eosinophils/100 WBC (Bld) 3.3 % 0.9-7.0 [facility] Erythrocyte distribution wid th Auto (RBC) [Ratio]on 08-06-2023 Erythrocyte distribution width (RBC) [Ratio] 17.0 % 11.0-15.0 [facility] Estimated glomerular filtrat ion rate (GFR) non- Americanon 08-06-2023 GFR/1.73 sq M.predicted among non-blacks MDRD (S/P/Bld) [Vol rate/Area] 36 mL/min/{1.73_m2} >=60 [facility] Globulin Calc (S) [Mass/Vol] on 08-06-2023 Globulin (S) [Mass/Vol] 4.0 g/dL [facility] Hematocrit Auto (Bld) [Volum e fraction]on 08-06-2023 Hematocrit (Bld) [Volume fraction] 30.1 % 42.0-54.0 [facility] Hemoglobin [Mass/volume] in Bloodon 08-06-2023 Hemoglobin (Bld) [Mass/Vol] 8.8 g/dL 14.0-18.0 [facility] Laboratory - Chemistry and C hemistry - challengeon 08-06-2023 Albumin [Mass/Vol] 2.0 g/dL 3.4-5.0 [facility] ALP [Catalytic activity/Vol] 127 U/L 46-116 [facility] ALT [Catalytic activity/Vol] 14 U/L 16-63 [facility] AST [Catalytic activity/Vol] 16 U/L 15-37 [facility] Bilirubin [Mass/Vol] 0.4 mg/dL 0.2-1.0 [facility] Calcium [Mass/Vol] 7.9 mg/dL 8.5-10.1 [facility] Chloride [Moles/Vol] 99 mmol/L 98-107 [facility] CO2 [Moles/Vol] 25.0 mmol/L 21.0-32.0 [facility] Creatinine [Mass/Vol] 1.95 mg/dL 0.70-1.30 [facility] GFR/1.73 sq M.predicted MDRD (S/P/Bld) [Vol rate/Area] 43 mL/min/{1.73_m2} >=60 [facility] Glucose [Mass/Vol] 297 mg/dL 74-106 [facility] Potassium [Moles/Vol] 4.4 mmol/L 3.5-5.1 [facility] Protein [Mass/Vol] 6.0 g/dL 6.4-8.2 [facility] Sodium [Moles/Vol] 133 mmol/L 136-145 [facility] Urea nitrogen [Mass/Vol] 28.0 mg/dL 7.0-18.0 [facility] Urea nitrogen/Creatinine [Mass ratio] 14.4 mg/mg [facility] Laboratory - Hematology and Cell countson 08-06-2023 Immature granulocytes/100 WBC (Bld) 0.4 % 0.0-0.5 [facility] Leukocytes [#/volume] correc jorge for nucleated erythrocytes in Blood by Automated counon 08-06-2023 WBC corrected for nucl RBC Auto (Bld) [#/Vol] 10.1 10 3/uL 4.0-11.0 [facility] Lymphocytes Auto (Bld) [#/Vo l]on 08-06-2023 Lymphocytes (Bld) [#/Vol] 1.5 10 3/uL 1.2-3.8 [facility] Lymphocytes/100 WBC Auto (Bl d)on 08-06-2023 Lymphocytes/100 WBC (Bld) 14.4 % 20.5-60.0 [facility] MCH Auto (RBC) [Entitic mass ]on 08-06-2023 MCH (RBC) [Entitic mass] 22.5 pg 25.9-34.0 [facility] MCHC Auto (RBC) [Mass/Vol]on 08-06-2023 MCHC (RBC) [Mass/Vol] 29.2 g/dL 29.9-35.2 [facility] MCV Auto (RBC) [Entitic vol] on 08-06-2023 MCV (RBC) [Entitic vol] 77.0 fL 80.0-94.0 [facility] Monocytes Auto (Bld) [#/Vol] on 08-06-2023 Monocytes (Bld) [#/Vol] 1.1 10 3/uL 0.3-0.8 [facility] Monocytes/100 WBC Auto (Bld) on 08-06-2023 Monocytes/100 WBC (Bld) 10.4 % 1.7-12.0 [facility] Neutrophils Auto (Bld) [#/Vo l]on 08-06-2023 Neutrophils (Bld) [#/Vol] 7.2 10 3/uL 1.4-6.5 [facility] Neutrophils/100 WBC Auto (Bl d)on 08-06-2023 Neutrophils/100 WBC (Bld) 70.8 % 43.0-75.0 [facility] No Panel Informationon 08-05 Vancomycin Level Trough 13.6 ug/mL 5.0-20.0 [facility] Eosinophils # (Auto) 0.3 10 3/uL 0.0-0.7 [facility] Immature Granulocyte # (Auto) 0.04 10 3/uL 0.00-0.03 [facility] Platelet mean volume Auto (B ld) [Entitic vol]on 08-06-2023 Platelet mean volume (Bld) [Entitic vol] 12.2 fL 9.5-13.5 [facility] Platelets Auto (Bld) [#/Vol] on 08-06-2023 Platelets (Bld) [#/Vol] 190 10 3/uL 150-450 [facility] RBC Auto (Bld) [#/Vol]on RBC (Bld) [#/Vol] 3.91 10 6/uL 4.70-6.10 [facility] Serum or plasma albumin/glob ulin mass ratioon 08-06-2023 Albumin/Globulin [Mass ratio] 0.5 {ratio} [facility] Serum or plasma anion gap de terminationon 08-06-2023 Anion gap [Moles/Vol] 13.4 mmol/L [facility] Automated epithelial cells c ount in urine sediment (number/area)on 08-05-2023 Epithelial cells Auto (Urine sed) [#/Area] RARE #/LPF NONE/RARE [facility] Automated leukocytes count i n urine sediment (number/area)on 08-05-2023 WBC Auto (Urine sed) [#/Area] NONE SEEN #/HPF 0-2 [facility] Automated urine specific gra vity by refractometryon 08-05-2023 Specific gravity Refractometry automated (U) [Rel density] <=1.005 1.005-1.02 5 [facility] Basophils Auto (Bld) [#/Vol] on 08-05-2023 Basophils (Bld) [#/Vol] 0.1 10 3/uL 0.0-0.1 [facility] Basophils/100 WBC Auto (Bld) on 08-05-2023 Basophils/100 WBC (Bld) 0.7 % 0.2-2.0 [facility] Bilirubin Auto test strip (U ) [Mass/Vol]on 08-05-2023 Bilirubin (U) [Mass/Vol] Negative NEGATIVE [facility] Casts typing in urine sedime nt by light microscopyon 08-05-2023 Casts LM Nom (Urine sed) NONE SEEN #/LPF NONE SEEN [facility] Color Auto (U)on 08-05-2023 Color (U) LT. YELLOW YELLOW [facility] Eosinophils/100 WBC Auto (Bl d)on 08-05-2023 Eosinophils/100 WBC (Bld) 2.5 % 0.9-7.0 [facility] Erythrocyte distribution wid th Auto (RBC) [Ratio]on 08-05-2023 Erythrocyte distribution width (RBC) [Ratio] 16.8 % 11.0-15.0 [facility] Estimated glomerular filtrat ion rate (GFR) non- Americanon 08-05-2023 GFR/1.73 sq M.predicted among non-blacks MDRD (S/P/Bld) [Vol rate/Area] 42 mL/min/{1.73_m2} >=60 [facility] Globulin Calc (S) [Mass/Vol] on 08-05-2023 Globulin (S) [Mass/Vol] 4.1 g/dL [facility] Glucose mean value [Mass/vol ume] in Blood Estimated from glycated hemoglobinon 08-05-2023 Average glucose Estimated from glycated hemoglobin (Bld) [Mass/Vol] 214 mg/dL [facility] Hematocrit Auto (Bld) [Volum e fraction]on 08-05-2023 Hematocrit (Bld) [Volume fraction] 31.8 % 42.0-54.0 [facility] Hemoglobin [Mass/volume] in Bloodon 08-05-2023 Hemoglobin (Bld) [Mass/Vol] 9.4 g/dL 14.0-18.0 [facility] Ketones Auto test strip (U) [Mass/Vol]on 08-05-2023 Ketones (U) [Mass/Vol] Negative NEGATIVE [facility] - Chemistry and C hemistry - challengeon 08-05-2023 Albumin [Mass/Vol] 2.3 g/dL 3.4-5.0 [facility] ALP [Catalytic activity/Vol] 111 U/L 46-116 [facility] ALT [Catalytic activity/Vol] 11 U/L 16-63 [facility] AST [Catalytic activity/Vol] 11 U/L 15-37 [facility] Bilirubin [Mass/Vol] 0.5 mg/dL 0.2-1.0 [facility] Calcium [Mass/Vol] 8.1 mg/dL 8.5-10.1 [facility] Chloride [Moles/Vol] 101 mmol/L 98-107 [facility] CO2 [Moles/Vol] 25.6 mmol/L 21.0-32.0 [facility] Creatinine [Mass/Vol] 1.68 mg/dL 0.70-1.30 [facility] GFR/1.73 sq M.predicted MDRD (S/P/Bld) [Vol rate/Area] 51 mL/min/{1.73_m2} >=60 [facility] Glucose [Mass/Vol] 111 mg/dL 74-106 [facility] Potassium [Moles/Vol] 3.7 mmol/L 3.5-5.1 [facility] Protein [Mass/Vol] 6.4 g/dL 6.4-8.2 [facility] Sodium [Moles/Vol] 138 mmol/L 136-145 [facility] Urea nitrogen [Mass/Vol] 17.0 mg/dL 7.0-18.0 [facility] Urea nitrogen/Creatinine [Mass ratio] 10.1 mg/mg [facility] Laboratory - Hematology and Cell countson 08-05-2023 HbA1c (Bld) [Mass fraction] 9.1 % 4.5-6.2 [facility] Comment on above: ADA RECOMMENDED LIMI T 4.0 - 6.0ADA THERAPEUTIC TARGET < 7.0ACTION SUGGESTED> 7.0 Immature granulocytes/100 WBC (Bld) 0.4 % 0.0-0.5 [facility] Laboratory - Microbiology an d Antimicrobial susceptibilityOrdered By: Teresa Lynch on 08-05-2023 Microscopic observation Gram stain Nom (Unsp spec) [facility] Leukocytes [#/volume] correc jorge for nucleated erythrocytes in Blood by Automated counon 08-05-2023 WBC corrected for nucl RBC Auto (Bld) [#/Vol] 12.3 10 3/uL 4.0-11.0 [facility] Lymphocytes Auto (Bld) [#/Vo l]on 08-05-2023 Lymphocytes (Bld) [#/Vol] 1.5 10 3/uL 1.2-3.8 [facility] Lymphocytes/100 WBC Auto (Bl d)on 08-05-2023 Lymphocytes/100 WBC (Bld) 11.8 % 20.5-60.0 [facility] MCH Auto (RBC) [Entitic mass ]on 08-05-2023 MCH (RBC) [Entitic mass] 22.4 pg 25.9-34.0 [facility] MCHC Auto (RBC) [Mass/Vol]on 08-05-2023 MCHC (RBC) [Mass/Vol] 29.6 g/dL 29.9-35.2 [facility] MCV Auto (RBC) [Entitic vol] on 08-05-2023 MCV (RBC) [Entitic vol] 75.9 fL 80.0-94.0 [facility] Monocytes Auto (Bld) [#/Vol] on 08-05-2023 Monocytes (Bld) [#/Vol] 1.3 10 3/uL 0.3-0.8 [facility] Monocytes/100 WBC Auto (Bld) on 08-05-2023 Monocytes/100 WBC (Bld) 10.7 % 1.7-12.0 [facility] Mucus LM Ql (Urine sed)on Mucus Ql (Urine sed) NONE SEEN NONE SEEN [facility] Neutrophils Auto (Bld) [#/Vo l]on 08-05-2023 Neutrophils (Bld) [#/Vol] 9.1 10 3/uL 1.4-6.5 [facility] Neutrophils/100 WBC Auto (Bl d)on 08-05-2023 Neutrophils/100 WBC (Bld) 73.9 % 43.0-75.0 [facility] No Panel Informationon 08-04 Eosinophils # (Auto) 0.3 10 3/uL 0.0-0.7 [facility] Immature Granulocyte # (Auto) 0.05 10 3/uL 0.00-0.03 [facility] Platelet mean volume Auto (B ld) [Entitic vol]on 08-05-2023 Platelet mean volume (Bld) [Entitic vol] 11.2 fL 9.5-13.5 [facility] Platelets Auto (Bld) [#/Vol] on 08-05-2023 Platelets (Bld) [#/Vol] 184 10 3/uL 150-450 [facility] Protein Auto test strip (U) [Mass/Vol]on 08-05-2023 Protein (U) [Mass/Vol] Negative NEG/TRACE [facility] RBC Auto (Bld) [#/Vol]on RBC (Bld) [#/Vol] 4.19 10 6/uL 4.70-6.10 [facility] Serum or plasma albumin/glob ulin mass ratioon 08-05-2023 Albumin/Globulin [Mass ratio] 0.6 {ratio} [facility] Serum or plasma anion gap de terminationon 08-05-2023 Anion gap [Moles/Vol] 15.1 mmol/L [facility] Specific gravity Auto test s trip (U) [Rel density]on 08-05-2023 Specific gravity (U) [Rel density] CLEAR CLEAR [facility] Urine bacteria detection by automated methodon 08-05-2023 Bacteria Auto Ql (U) TRACE #/HPF NONE SEEN [facility] Urine glucose measurement by test strip (mass/volume)on 08-05-2023 Glucose Test strip (U) [Mass/Vol] >=1000 mg/dL NEGATIVE [facility] Urine hemoglobin detection b y automated test stripon 08-05-2023 Hemoglobin Auto test strip Ql (U) Negative NEGATIVE [facility] Urine nitrite detection by a utomated test stripon 08-05-2023 Nitrite Auto test strip Ql (U) Negative NEGATIVE [facility] Urine sediment crystal ident ification by light microscopyon 08-05-2023 Crystals LM Nom (Urine sed) None Seen #/HPF None Seen [facility] Urine sediment leukocyte cou nt by microscopy (number/high power field)on 08-05-2023 WBC LM.HPF (Urine sed) [#/Area] NONE SEEN #/HPF NONE SEEN [facility] Urobilinogen Auto test strip (U) [Mass/Vol]on 08-05-2023 Urobilinogen Qn (U) 0.2 {Brendan'U}/dL 0.2-1.0 [facility] pH Auto test strip (U)on pH (U) 6.0 [pH] 5.0-9.0 [facility] Basophils Auto (Bld) [#/Vol] on 08-04-2023 Basophils (Bld) [#/Vol] 0.1 10 3/uL 0.0-0.1 [facility] Basophils/100 WBC Auto (Bld) on 08-04-2023 Basophils/100 WBC (Bld) 0.8 % 0.2-2.0 [facility] Eosinophils/100 WBC Auto (Bl d)on 08-04-2023 Eosinophils/100 WBC (Bld) 2.8 % 0.9-7.0 [facility] Erythrocyte distribution wid th Auto (RBC) [Ratio]on 08-04-2023 Erythrocyte distribution width (RBC) [Ratio] 16.9 % 11.0-15.0 [facility] Estimated glomerular filtrat ion rate (GFR) non- Americanon 08-04-2023 GFR/1.73 sq M.predicted among non-blacks MDRD (S/P/Bld) [Vol rate/Area] 33 mL/min/{1.73_m2} >=60 [facility] Globulin Calc (S) [Mass/Vol] on 08-04-2023 Globulin (S) [Mass/Vol] 4.4 g/dL [facility] Hematocrit Auto (Bld) [Volum e fraction]on 08-04-2023 Hematocrit (Bld) [Volume fraction] 32.6 % 42.0-54.0 [facility] Hemoglobin [Mass/volume] in Bloodon 08-04-2023 Hemoglobin (Bld) [Mass/Vol] 9.6 g/dL 14.0-18.0 [facility] INR in Platelet poor plasma by Coagulation assayon 08-04-2023 INR Coag (PPP) [Relative time] 1.05 {INR} [facility] Comment on above: DESIRED INR:2.0-3.0 CONDITIONS NOT LISTED BELOW2.5-3.5 FOR PROSTHETIC HEART VALVE REPLACEMENT2.5-3.5 [facility] Laboratory - Chemistry and C hemistry - challengeon 08-04-2023 Albumin [Mass/Vol] 2.4 g/dL 3.4-5.0 [facility] ALP [Catalytic activity/Vol] 109 U/L 46-116 [facility] ALT [Catalytic activity/Vol] 9 U/L 16-63 [facility] AST [Catalytic activity/Vol] U/L 15-37 [facility] Bilirubin [Mass/Vol] 0.4 mg/dL 0.2-1.0 [facility] Calcium [Mass/Vol] 8.0 mg/dL 8.5-10.1 [facility] Chloride [Moles/Vol] 96 mmol/L 98-107 [facility] CO2 [Moles/Vol] 29.2 mmol/L 21.0-32.0 [facility] Creatinine [Mass/Vol] 2.06 mg/dL 0.70-1.30 [facility] GFR/1.73 sq M.predicted MDRD (S/P/Bld) [Vol rate/Area] 40 mL/min/{1.73_m2} >=60 [facility] Glucose [Mass/Vol] 329 mg/dL 74-106 [facility] Potassium [Moles/Vol] 3.5 mmol/L 3.5-5.1 [facility] Protein [Mass/Vol] 6.8 g/dL 6.4-8.2 [facility] Sodium [Moles/Vol] 132 mmol/L 136-145 [facility] Urea nitrogen [Mass/Vol] 20.0 mg/dL 7.0-18.0 [facility] Urea nitrogen/Creatinine [Mass ratio] 9.7 mg/mg [facility] Laboratory - Hematology and Cell countson 08-04-2023 ESR (Bld) [Velocity] 89 mm/h <=20 [facility] Immature granulocytes/100 WBC (Bld) 0.3 % 0.0-0.5 [facility] Laboratory - Microbiology an d Antimicrobial susceptibilityOrdered By: Teresa Lynch on 08-04-2023 Microscopic observation Gram stain Nom (Unsp spec) [facility] Leukocytes [#/volume] correc jorge for nucleated erythrocytes in Blood by Automated counon 08-04-2023 WBC corrected for nucl RBC Auto (Bld) [#/Vol] 11.6 10 3/uL 4.0-11.0 [facility] Lymphocytes Auto (Bld) [#/Vo l]on 08-04-2023 Lymphocytes (Bld) [#/Vol] 1.7 10 3/uL 1.2-3.8 [facility] Lymphocytes/100 WBC Auto (Bl d)on 08-04-2023 Lymphocytes/100 WBC (Bld) 14.9 % 20.5-60.0 [facility] MCH Auto (RBC) [Entitic mass ]on 08-04-2023 MCH (RBC) [Entitic mass] 22.3 pg 25.9-34.0 [facility] MCHC Auto (RBC) [Mass/Vol]on 08-04-2023 MCHC (RBC) [Mass/Vol] 29.4 g/dL 29.9-35.2 [facility] MCV Auto (RBC) [Entitic vol] on 08-04-2023 MCV (RBC) [Entitic vol] 75.8 fL 80.0-94.0 [facility] Monocytes Auto (Bld) [#/Vol] on 08-04-2023 Monocytes (Bld) [#/Vol] 1.2 10 3/uL 0.3-0.8 [facility] Monocytes/100 WBC Auto (Bld) on 08-04-2023 Monocytes/100 WBC (Bld) 10.4 % 1.7-12.0 [facility] Neutrophils Auto (Bld) [#/Vo l]on 08-04-2023 Neutrophils (Bld) [#/Vol] 8.2 10 3/uL 1.4-6.5 [facility] Neutrophils/100 WBC Auto (Bl d)on 08-04-2023 Neutrophils/100 WBC (Bld) 70.8 % 43.0-75.0 [facility] No Panel InformationOrdered By: Teresa Lynch on 08-04-2023 Blood Culture 2 [facility] Blood Culture 1 [facility] Wound Culture [facility] No Panel Informationon 08-03 Aerobic & Anaerobic Susceptibility [facility] Miscellaneous Test Comment See comment [facility] Comment on above: Specimen Source: JONO T - Foot - Foot - 603.950 C-Reactive Protein, Quantitative 11.62 mg/dL <=0.50 [facility] Eosinophils # (Auto) 0.3 10 3/uL 0.0-0.7 [facility] Immature Granulocyte # (Auto) 0.04 10 3/uL 0.00-0.03 [facility] Platelet mean volume Auto (B ld) [Entitic vol]on 08-04-2023 Platelet mean volume (Bld) [Entitic vol] 11.5 fL 9.5-13.5 [facility] Platelets Auto (Bld) [#/Vol] on 08-04-2023 Platelets (Bld) [#/Vol] 206 10 3/uL 150-450 [facility] Prothrombin time (PT)on PT Coag (PPP) [Time] 11.1 s 9.0-11.6 [facility] RBC Auto (Bld) [#/Vol]on RBC (Bld) [#/Vol] 4.30 10 6/uL 4.70-6.10 [facility] Serum or plasma albumin/glob ulin mass ratioon 08-04-2023 Albumin/Globulin [Mass ratio] 0.5 {ratio} [facility] Serum or plasma anion gap de terminationon 08-04-2023 Anion gap [Moles/Vol] 10.3 mmol/L [facility] Serum procalcitonin measurem enton 08-04-2023 Procalcitonin [Mass/Vol] 0.10 ng/mL 0.00-0.50 [facility] Basophils Auto (Bld) [#/Vol] on 08-03-2023 Basophils (Bld) [#/Vol] 0.1 10 3/uL 0.0-0.1 [facility] Basophils/100 WBC Auto (Bld) on 08-03-2023 Basophils/100 WBC (Bld) 0.7 % 0.2-2.0 [facility] Eosinophils/100 WBC Auto (Bl d)on 08-03-2023 Eosinophils/100 WBC (Bld) 1.8 % 0.9-7.0 [facility] Erythrocyte distribution wid th Auto (RBC) [Ratio]on 08-03-2023 Erythrocyte distribution width (RBC) [Ratio] 17.0 % 11.0-15.0 [facility] Estimated glomerular filtrat ion rate (GFR) non- Americanon 08-03-2023 GFR/1.73 sq M.predicted among non-blacks MDRD (S/P/Bld) [Vol rate/Area] 27 mL/min/{1.73_m2} >=60 [facility] Globulin Calc (S) [Mass/Vol] on 08-03-2023 Globulin (S) [Mass/Vol] 5.0 g/dL [facility] Hematocrit Auto (Bld) [Volum e fraction]on 08-03-2023 Hematocrit (Bld) [Volume fraction] 38.9 % 42.0-54.0 [facility] Hemoglobin [Mass/volume] in Bloodon 08-03-2023 Hemoglobin (Bld) [Mass/Vol] 11.8 g/dL 14.0-18.0 [facility] Laboratory - Chemistry and C hemistry - challengeon 08-03-2023 Lactate [Moles/Vol] 1.6 mmol/L 0.4-2.0 [facility] Albumin [Mass/Vol] 3.3 g/dL 3.4-5.0 [facility] ALP [Catalytic activity/Vol] 134 U/L 46-116 [facility] ALT [Catalytic activity/Vol] 13 U/L 16-63 [facility] AST [Catalytic activity/Vol] U/L 15-37 [facility] Bilirubin [Mass/Vol] 0.6 mg/dL 0.2-1.0 [facility] Calcium [Mass/Vol] 9.3 mg/dL 8.5-10.1 [facility] Chloride [Moles/Vol] 92 mmol/L 98-107 [facility] CO2 [Moles/Vol] 31.0 mmol/L 21.0-32.0 [facility] Creatinine [Mass/Vol] 2.45 mg/dL 0.70-1.30 [facility] GFR/1.73 sq M.predicted MDRD (S/P/Bld) [Vol rate/Area] 33 mL/min/{1.73_m2} >=60 [facility] Glucose [Mass/Vol] 310 mg/dL 74-106 [facility] Potassium [Moles/Vol] 3.7 mmol/L 3.5-5.1 [facility] Protein [Mass/Vol] 8.3 g/dL 6.4-8.2 [facility] Sodium [Moles/Vol] 133 mmol/L 136-145 [facility] Urea nitrogen [Mass/Vol] 23.0 mg/dL 7.0-18.0 [facility] Urea nitrogen/Creatinine [Mass ratio] 9.4 mg/mg [facility] Laboratory - Hematology and Cell countson 08-03-2023 ESR (Bld) [Velocity] 118 mm/h <=20 [facility] Immature granulocytes/100 WBC (Bld) 0.4 % 0.0-0.5 [facility] Leukocytes [#/volume] correc jorge for nucleated erythrocytes in Blood by Automated counon 08-03-2023 WBC corrected for nucl RBC Auto (Bld) [#/Vol] 14.6 10 3/uL 4.0-11.0 [facility] Lymphocytes Auto (Bld) [#/Vo l]on 08-03-2023 Lymphocytes (Bld) [#/Vol] 2.1 10 3/uL 1.2-3.8 [facility] Lymphocytes/100 WBC Auto (Bl d)on 08-03-2023 Lymphocytes/100 WBC (Bld) 14.3 % 20.5-60.0 [facility] MCH Auto (RBC) [Entitic mass ]on 08-03-2023 MCH (RBC) [Entitic mass] 22.6 pg 25.9-34.0 [facility] MCHC Auto (RBC) [Mass/Vol]on 08-03-2023 MCHC (RBC) [Mass/Vol] 30.3 g/dL 29.9-35.2 [facility] MCV Auto (RBC) [Entitic vol] on 08-03-2023 MCV (RBC) [Entitic vol] 74.4 fL 80.0-94.0 [facility] Monocytes Auto (Bld) [#/Vol] on 08-03-2023 Monocytes (Bld) [#/Vol] 1.4 10 3/uL 0.3-0.8 [facility] Monocytes/100 WBC Auto (Bld) on 08-03-2023 Monocytes/100 WBC (Bld) 9.4 % 1.7-12.0 [facility] Neutrophils Auto (Bld) [#/Vo l]on 08-03-2023 Neutrophils (Bld) [#/Vol] 10.7 10 3/uL 1.4-6.5 [facility] Neutrophils/100 WBC Auto (Bl d)on 08-03-2023 Neutrophils/100 WBC (Bld) 73.4 % 43.0-75.0 [facility] No Panel Informationon C-Reactive Protein, Quantitative 14.63 mg/dL <=0.50 [facility] Eosinophils # (Auto) 0.3 10 3/uL 0.0-0.7 [facility] Immature Granulocyte # (Auto) 0.06 10 3/uL 0.00-0.03 [facility] Venous Blood Partial Pressure CO2 44.8 mm[Hg] 40.0-52.0 [facility] Venous Blood pH 7.432 7.330-7.43 0 [facility] No Panel InformationOrdered By: Teresa Lynch on 08-03-2023 Blood Culture 2 [facility] Blood Culture 1 [facility] Platelet mean volume Auto (B ld) [Entitic vol]on 08-03-2023 Platelet mean volume (Bld) [Entitic vol] 11.4 fL 9.5-13.5 [facility] Platelets Auto (Bld) [#/Vol] on 08-03-2023 Platelets (Bld) [#/Vol] 252 10 3/uL 150-450 [facility] RBC Auto (Bld) [#/Vol]on RBC (Bld) [#/Vol] 5.23 10 6/uL 4.70-6.10 [facility] Serum or plasma albumin/glob ulin mass ratioon 08-03-2023 Albumin/Globulin [Mass ratio] 0.7 {ratio} [facility] Serum or plasma anion gap de terminationon 08-03-2023 Anion gap [Moles/Vol] 13.7 mmol/L Fi [facility] Activated partial thrombopla stin time (aPTT) in platelet poor plasma by coagulation aOrdered By: Abdullahi Wilson on 07-12-2023 aPTT Coag (PPP) [Time] 29.4 s 25.1-36.5 [facility] Comment on above: A hematocrit value g reater than 55% may lead to inaccurate results in coagulation testing. Patients having hematocrit values >55% require a special collection tube for coagulation studies. Please contact the laboratory at [phone] for redraw instructions. Alanine aminotransferase [En zymatic activity/volume] in Serum or PlasmaOrdered By: Abdullahi Wilson on 07-12-2023 ALT [Catalytic activity/Vol] 9 U/L 7-52 [facility] Albumin [Mass/volume] in Ser um or Plasma by Bromocresol green (BCG) dye binding methoOrdered By: Abdullahi Wilson on 07-12-2023 Albumin BCG dye [Mass/Vol] 3.9 g/dL 3.5-5.7 [facility] Alkaline phosphatase [Enzyma tic activity/volume] in Serum or PlasmaOrdered By: Abdullahi Wilson on 07-12-2023 ALP [Catalytic activity/Vol] 106 U/L 34-104 [facility] Aspartate aminotransferase [ Enzymatic activity/volume] in Serum or PlasmaOrdered By: Abdullahi Wilson on 07-12-2023 AST [Catalytic activity/Vol] 8 U/L 13-39 [facility] Basophils Auto (Bld) [#/Vol] Ordered By: Abdullahi Wilson on 07-12-2023 Basophils (Bld) [#/Vol] 0.1 10*3/uL 0.0-0.2 [facility] Basophils/100 WBC Auto (Bld) Ordered By: Abdullahi Wilson on 07-12-2023 Basophils/100 WBC (Bld) 1.1 % . [facility] Bilirubin.total [Mass/volume ] in Serum or PlasmaOrdered By: Abdullahi Wilson on 07-12-2023 Bilirubin [Mass/Vol] 0.4 mg/dL 0.3-1.0 [facility] Calcium [Mass/volume] in Ser um or PlasmaOrdered By: Abdullahi Wilson on 07-12-2023 Calcium [Mass/Vol] 8.5 mg/dL 8.6-10.3 [facility] Carbon dioxide, total [Moles /volume] in Serum or PlasmaOrdered By: Abdullahi Wilson on 07-12-2023 CO2 [Moles/Vol] 24.5 mmol/L 21.0-31.0 [facility] Chloride [Moles/volume] in S ilia or PlasmaOrdered By: Abdullahi Wilson on 07-12-2023 Chloride [Moles/Vol] 102 mmol/L 98-107 [facility] Creatine kinase [Enzymatic a ctivity/volume] in Serum or PlasmaOrdered By: Abdullahi Wilson on 07-12-2023 CK [Catalytic activity/Vol] 55 U/L 30-223 [facility] Creatinine [Mass/volume] in Serum or PlasmaOrdered By: Abdullahi Wilson on 07-12-2023 Creatinine [Mass/Vol] 1.82 mg/dL 0.70-1.30 [facility] Eosinophils Auto (Bld) [#/Vo l]Ordered By: Abdullahi Wilson on 07-12-2023 Eosinophils (Bld) [#/Vol] 0.3 10*3/uL 0.0-0.45 [facility] Eosinophils/100 WBC Auto (Bl d)Ordered By: Abdullahi Wilson on 07-12-2023 Eosinophils/100 WBC (Bld) 3.3 % . [facility] Erythrocyte distribution wid th Auto (RBC) [Ratio]Ordered By: Abdullahi Wilson on 07-12-2023 Erythrocyte distribution width (RBC) [Ratio] 17.1 % 12.0-14.8 [facility] Globulin Calc (S) [Mass/Vol] Ordered By: Abdullahi Wilson on 07-12-2023 Globulin (S) [Mass/Vol] 3.1 g/dL [facility] Glucose [Mass/volume] in Ser um or PlasmaOrdered By: Abdullahi Wilson on 07-12-2023 Glucose [Mass/Vol] 302 mg/dL 70-100 [facility] Comment on above: ADA recommended refe rence rangeRandom Glucose Reference Range is dependent on time and content of last meal. Glucose of more than 200 mg/dL in a nonstressed, ambulatory subject supports the diagnosis of Diabetes Mellitus. Hematocrit Auto (Bld) [Volum e fraction]Ordered By: Abdullahi Wilson on 07-12-2023 Hematocrit (Bld) [Volume fraction] 32.7 % 38.8-50.0 [facility] Hemoglobin [Mass/volume] in BloodOrdered By: Abdullahi Wilson on 07-12-2023 Hemoglobin (Bld) [Mass/Vol] 10.6 g/dL 13.0-17.0 [facility] INR in Platelet poor plasma by Coagulation assayOrdered By: Abdullahi Wilson on 07-12-2023 INR Coag (PPP) [Relative time] 1.1 {INR} [facility] Comment on above: INR Therapeutic Rang [...] RBC Auto (Bld) [#/Vol] 9.5 10*3/uL 4.1-10.5 [facility] Lymphocytes Auto (Bld) [#/Vo l]Ordered By: Abdullahi Wilson on 07-12-2023 Lymphocytes (Bld) [#/Vol] 1.9 10*3/uL 1.00-4.8 [facility] Lymphocytes/100 WBC Auto (Bl d)Ordered By: Abdullahi Wilson on 07-12-2023 Lymphocytes/100 WBC (Bld) 20.0 % . [facility] MCH Auto (RBC) [Entitic mass ]Ordered By: Abdullahi Wilson on 07-12-2023 MCH (RBC) [Entitic mass] 22.8 pg 27.5-35.2 [facility] MCHC Auto (RBC) [Mass/Vol]Or dered By: Abdullahi Wilson on 07-12-2023 MCHC (RBC) [Mass/Vol] 32.4 g/dL 32.5-35.6 [facility] MCV Auto (RBC) [Entitic vol] Ordered By: Abdullahi Wilson on 07-12-2023 MCV (RBC) [Entitic vol] 70.6 fL 83.5-101 [facility] Monocyte distribution width [Entitic volume] in Blood by AutomatedOrdered By: Abdullahi Wilson on 07-12-2023 Monocyte distribution width Auto (Bld) [Entitic vol] 18.12 % 0.00-20.00 [facility] Monocytes Auto (Bld) [#/Vol] Ordered By: Abdullahi Wilson on 07-12-2023 Monocytes (Bld) [#/Vol] 1.0 10*3/uL 0.0-0.8 [facility] Monocytes/100 WBC Auto (Bld) Ordered By: Abdullahi Wilson on 07-12-2023 Monocytes/100 WBC (Bld) 10.2 % . [facility] Natriuretic peptide B [Mass/ Vol]Ordered By: Abdullahi Wilson on 07-12-2023 Natriuretic peptide B (Bld) [Mass/Vol] 34.0 pg/mL 5-100 [facility] Neutrophils Auto (Bld) [#/Vo l]Ordered By: Abdullahi Wilson on 07-12-2023 Neutrophils (Bld) [#/Vol] 6.2 10*3/uL 1.8-7.7 [facility] Neutrophils/100 WBC Auto (Bl d)Ordered By: Abdullahi Wilson on 07-12-2023 Neutrophils/100 WBC (Bld) 65.4 % . [facility] No Panel InformationOrdered By: Abdullahi Wilson on 07-12-2023 Estimated GFR (CKD-EPI) 42.789 mL/Min [facility] Creatinine Clearance (Chem 54.64 [facility] Nucleated erythrocytes [Pres ence] in Blood by Automated countOrdered By: Abdullahi Wilson on 07-12-2023 Nucleated RBC Auto Ql (Bld) 0.1 /100{WBC} 0-0.5 [facility] Platelet mean volume Auto (B ld) [Entitic vol]Ordered By: Abdullahi Wilson on 07-12-2023 Platelet mean volume (Bld) [Entitic vol] 9.1 fL 6.6-10.1 [facility] Platelets Auto (Bld) [#/Vol] Ordered By: Abdullahi Wilson on 07-12-2023 Platelets (Bld) [#/Vol] 233 10*3/uL 150-450 [facility] Potassium [Moles/volume] in Serum or PlasmaOrdered By: Abdullahi Wilson on 07-12-2023 Potassium [Moles/Vol] 3.9 mmol/L 3.5-5.1 [facility] Protein [Mass/volume] in Ser um or PlasmaOrdered By: Abdullahi Wilson on 07-12-2023 Protein [Mass/Vol] 7.0 g/dL 6.4-8.9 [facility] Prothrombin time (PT)Ordered By: Abdullahi Wilson on 07-12-2023 PT Coag (PPP) [Time] 12.1 s 9.0-12.9 [facility] Comment on above: A hematocrit value g reater than 55% may lead to inaccurate results in coagulation testing. Patients having hematocrit values >55% require a special collection tube for coagulation studies. Please contact the laboratory at [phone] for redraw instructions. RBC Auto (Bld) [#/Vol]Ordere d By: Abdullahi Wilson on 07-12-2023 RBC (Bld) [#/Vol] 4.63 10*6/uL 3.90-5.60 [facility] Serum or plasma albumin/glob ulin mass ratioOrdered By: Abdullahi Wilson on 07-12-2023 Albumin/Globulin [Mass ratio] 1.3 {ratio} [facility] Serum or plasma anion gap de terminationOrdered By: Abdullahi Wilson on 07-12-2023 Anion gap [Moles/Vol] 13.4 mmol/L 6.0-15.0 [facility] Sodium [Moles/volume] in Ser um or PlasmaOrdered By: Abdullahi Wilson on 07-12-2023 Sodium [Moles/Vol] 136 mmol/L 136-145 [facility] Troponin I.cardiac [Mass/vol ume] in Serum or Plasma by Detection limit <= 0.01 ng/Ordered By: Abdullahi Wilson on 07-12-2023 Troponin I.cardiac DL <= 0.01 ng/mL [Mass/Vol] 4.6 pg/mL 0.0-20.0 [facility] Urea nitrogen [Mass/volume] in Serum or PlasmaOrdered By: Abdullahi Wilson on 07-12-2023 Urea nitrogen [Mass/Vol] 16 mg/dL 7-25 [facility] WBC Auto (Bld) [#/Vol]Ordere d By: Abdullahi Wilson on 07-12-2023 WBC (Bld) [#/Vol] 9.5 10*3/uL 4.1-10.5 [facility] Patient Educationon 06-02-20 23 Patient Education Urology [...] Follow these instructions at home: ? Take chlf-eza-gcpvdrf and prescription medicines only as told by [...] the medicine (more content not included)... Normal [facility] Retail - Clinical Noteon Retail - Clinical Note [id number]#1.00TIFF Normal [facility] Urology Office/Clinic Noteon 06-02-2023 Urology Office/Clinic Note Chief Complaint S/p to Cysto HPI Staff Sp to Cysto done @ [facility] [place]23- Has not noticed any difference- [...] Contact Information Yeyo ROWE MD, URL [address] [place] [address]- Additional Instructions: 1 month w/ cath volumes [...] heart failure) (more content not included)... Normal [facility] Comment on above: Result Comment: Elec tronically Signed By: Yeyo ROWE MD\.br\Date and Time Signed: 06/02/23 12:16 EST\.br\Electronically Co-Signed By: Mattie Foster.br\Date and Time Co-Signed: 06/02/23 12:04 EST Patient Educationon 05-03-20 23 Patient Education Normal [facility] Pathology Noteon 05-01-2023 Pathology Note [id number]#1.00TIFF Normal [facility] Lab Reportson 04-14-2023 Lab Reports [id number]#1.00TIFF Normal [facility] Operative Reporton Operative Report [id number]#1.00TIFF Normal [facility] Patient Correspondenceon Patient Correspondence [id number]#1.00TIFF Normal [facility] Lab Reportson 03-31-2023 Lab Reports [id number]#1.00TIFF Normal [facility] RAD - MISCon 03-31-2023 RAD - MISC [id number]#1.00TIFF Normal [facility] Patient Correspondenceon Patient Correspondence [id number]#1.00TIFF Normal [facility] Formson 03-23-2023 Forms [id number]#1.00TIFF [facility] A1C HEMOGLOBINon 03-15-2023 HbA1c (Bld) [Mass fraction] 7.5 % [facility] Other HbA1c (Bld) [Mass fraction]o n 03-15-2023 A1C HEMOGLOBIN [facility] Other Lab Reportson 03-09-2023 Lab Reports [id number]#1.00TIFF [facility] Office Visit (Cardiology)on 02-15-2023 Follow-up [...] in adult Healthy Weight Tips; Status:Complete; Done: [id number] Patient Instructions Please bring all medicines, vitamins, [...] Sia HERRERA, (more content not included)... Normal [place] Tobacco Screening.on 023 Fall risk assessment c) Not medically indicated [facility] [address] DO Work Phone: Tobacco use status CP b) No [facility] [address] DO Work Phone: Tobacco Screening. Yes [facility] [address] DO Work Phone: [facility] CARDIAC STRESS/REST INJE CTIONon 01-25-2023 NO CARDIAC STRESS/REST INJECTION Patient Name: MYRA PICKARD STUDY: MYOCARDIAL PERFUSION STRESS TEST WITH EXERCISE CONVERTED TO LEXISCAN Performing facility: [facility], [address], [address], [place] [address] [facility] Provider: Dolores Pickard RN, [employer] REPAIRER PCP: Dr. Teresa Lynch Supervising provider: Pascale Arnold MD, MERGED WITH [facility] INDICATION: Anginal equivalent CAD; HISTORY: Gender: M; Age: 57 y/o ; Height: 182.88 cm; Weight: 97.3101950 kg. High Cholesterol; CAD; Diabetes; HTN; Palpitations; Chest Pain; Quit smoking unknown years ago. COMPARISON: Previous nuclear testing completed at [facility]. ACCESSION NUMBER(S): [id number]; [id number]; [id number] ORDERING CLINICIAN: DOLORES PICKARD TECHNIQUE: ONE DAY [...] [facility] No Panel Informationon 01-25 Normal [facility] [facility] [address] DO Work Phone: Office Visit [...] Med Order; Status:Hold For - Scheduling; Requested for:[id number]; Radiologist to Determine Optimal Study : Y [...] contact the office if new symptoms arise. 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 Normal [place] Tobacco Screening.on 023 Adult depression screening assessment No [facility] [address] DO Work Phone: Tobacco use status [facility]PH[facility] b) No [facility] [address] DO Work Phone: Alanine aminotransferase [En zymatic activity/volume] in Serum or PlasmaOrdered By: Teresa Lynch on 09-27-2022 ALT [Catalytic activity/Vol] 15 U/L 7-52 [facility] Albumin [Mass/volume] in Ser um or Plasma by Bromocresol green (BCG) dye binding methoOrdered By: Teresa Lynch on 09-27-2022 Albumin BCG dye [Mass/Vol] 4.1 g/dL 3.5-5.7 [facility] Alkaline phosphatase [Enzyma tic activity/volume] in Serum or PlasmaOrdered By: Teresa Lynhc on 09-27-2022 ALP [Catalytic activity/Vol] 116 U/L 34-104 [facility] Aspartate aminotransferase [ Enzymatic activity/volume] in Serum or PlasmaOrdered By: Teresa Lynch on 09-27-2022 AST [Catalytic activity/Vol] 15 U/L 13-39 [facility] Basophils Auto (Bld) [#/Vol] Ordered By: Teresa Lynch on 09-27-2022 Basophils (Bld) [#/Vol] 0.1 10*3/uL 0.0-0.2 [facility] Basophils/100 WBC Auto (Bld) Ordered By: Teresa Lynch on 09-27-2022 Basophils/100 WBC (Bld) 1.1 % . [facility] Bilirubin.total [Mass/volume ] in Serum or PlasmaOrdered By: Teresa Lynch on 09-27-2022 Bilirubin [Mass/Vol] 0.4 mg/dL 0.3-1.0 [facility] Calcium [Mass/volume] in Ser um or PlasmaOrdered By: Teresa Lynch on 09-27-2022 Calcium [Mass/Vol] 8.8 mg/dL 8.6-10.3 [facility] Carbon dioxide, total [Moles /volume] in Serum or PlasmaOrdered By: Teresa Lynch on 09-27-2022 CO2 [Moles/Vol] 27.2 mmol/L 21.0-31.0 [facility] Chloride [Moles/volume] in S ilia or PlasmaOrdered By: Teresa Lynch on 09-27-2022 Chloride [Moles/Vol] 99 mmol/L 98-107 [facility] Cholesterol [Mass/volume] in Serum or PlasmaOrdered By: Teresa Lynch on 09-27-2022 Cholesterol [Mass/Vol] 104 mg/dL 140-200 [facility] Comment on above: Chol less than 200 m g/dl low riskChol 201-239 mg/dl borderline riskChol 240 mg/dl and greater high risk Cholesterol in LDL Calc [Mas s/Vol]Ordered By: Teresa Lynch on 09-27-2022 Cholesterol in LDL [Mass/Vol] TNP [facility] Comment on above: Test not performed Cholesterol in LDL [Mass/vol ume] in Serum or PlasmaOrdered By: Teresa Lynch on 09-27-2022 Cholesterol in LDL [Mass/Vol] 38 mg/dL 0-100 [facility] Comment on above: LDL ATP III CLASSIFI CATIONLDL less than 100 mg/dL OptimalLDL 100-129 mg/dL Near or above optimalLDL 130-159 mg/dL Borderline highLDL 160-189 mg/dL HighLDL greater than 189 mg/dL Very high Cholesterol in VLDL Calc [Ma ss/Vol]Ordered By: Teresa Lynch on 09-27-2022 Cholesterol in VLDL [Mass/Vol] 99 mg/dL [facility] Creatinine [Mass/volume] in Serum or PlasmaOrdered By: Teresa Lynch on 09-27-2022 Creatinine [Mass/Vol] 1.84 mg/dL 0.70-1.30 [facility] Eosinophils Auto (Bld) [#/Vo l]Ordered By: Teresa Lynch on 09-27-2022 Eosinophils (Bld) [#/Vol] 0.7 10*3/uL 0.0-0.45 [facility] Eosinophils/100 WBC Auto (Bl d)Ordered By: Teresa Lynch on 09-27-2022 Eosinophils/100 WBC (Bld) 5.9 % . [facility] Erythrocyte distribution wid th Auto (RBC) [Ratio]Ordered By: Teresa Lynch on 09-27-2022 Erythrocyte distribution width (RBC) [Ratio] 16.0 % 12.0-14.8 [facility] Globulin Calc (S) [Mass/Vol] Ordered By: Teresa Lynch on 09-27-2022 Globulin (S) [Mass/Vol] 2.9 g/dL [facility] Glucose [Mass/volume] in Ser um or PlasmaOrdered By: Teresa Lynch on 09-27-2022 Glucose [Mass/Vol] 225 mg/dL 70-100 [facility] Comment on above: ADA recommended refe rence rangeRandom Glucose Reference Range is dependent on time and content of last meal. Glucose of more than 200 mg/dL in a nonstressed, ambulatory subject supports the diagnosis of Diabetes Mellitus. Hematocrit Auto (Bld) [Volum e fraction]Ordered By: Teresa Lynch on 09-27-2022 Hematocrit (Bld) [Volume fraction] 41.0 % 38.8-50.0 [facility] Hemoglobin [Mass/volume] in BloodOrdered By: Teresa Lynch on 09-27-2022 Hemoglobin (Bld) [Mass/Vol] 13.2 g/dL 13.0-17.0 [facility] Leukocytes [#/volume] correc jorge for nucleated erythrocytes in Blood by Automated counOrdered By: Teresa Lynch on 09-27-2022 WBC corrected for nucl RBC Auto (Bld) [#/Vol] 12.4 10*3/uL 4.1-10.5 [facility] Lymphocytes Auto (Bld) [#/Vo l]Ordered By: Teresa Lynch on 09-27-2022 Lymphocytes (Bld) [#/Vol] 2.3 10*3/uL 1.00-4.8 [facility] Lymphocytes/100 WBC Auto (Bl d)Ordered By: Teresa Lynch on 09-27-2022 Lymphocytes/100 WBC (Bld) 18.2 % . [facility] MCH Auto (RBC) [Entitic mass ]Ordered By: Teresa Lynch on 09-27-2022 MCH (RBC) [Entitic mass] 23.9 pg 27.5-35.2 [facility] MCHC Auto (RBC) [Mass/Vol]Or dered By: Teresa Lynch on 09-27-2022 MCHC (RBC) [Mass/Vol] 32.2 g/dL 32.5-35.6 [facility] MCV Auto (RBC) [Entitic vol] Ordered By: Teresa Lynch on 09-27-2022 MCV (RBC) [Entitic vol] 74.3 fL 83.5-101 [facility] Monocytes Auto (Bld) [#/Vol] Ordered By: Teresa Lynch on 09-27-2022 Monocytes (Bld) [#/Vol] 1.0 10*3/uL 0.0-0.8 [facility] Monocytes/100 WBC Auto (Bld) Ordered By: Teresa Lynch on 09-27-2022 Monocytes/100 WBC (Bld) 7.9 % . [facility] Neutrophils Auto (Bld) [#/Vo l]Ordered By: Teresa Lynch on 09-27-2022 Neutrophils (Bld) [#/Vol] 8.3 10*3/uL 1.8-7.7 [facility] Neutrophils/100 WBC Auto (Bl d)Ordered By: Teresa Lynch on 09-27-2022 Neutrophils/100 WBC (Bld) 66.9 % . [facility] No Panel InformationOrdered By: Teresa Lynch on 09-27-2022 Estimated GFR (CKD-EPI) 42.232 mL/Min [facility] Creatinine Clearance (Chem N/A [facility] Nucleated erythrocytes [Pres ence] in Blood by Automated countOrdered By: Teresa Lynch on 09-27-2022 Nucleated RBC Auto Ql (Bld) 0.1 /100{WBC} 0-0.5 [facility] Platelet mean volume Auto (B ld) [Entitic vol]Ordered By: Teresa Lynch on 09-27-2022 Platelet mean volume (Bld) [Entitic vol] 9.1 fL 6.6-10.1 [facility] Platelets Auto (Bld) [#/Vol] Ordered By: Teresa Lynch on 09-27-2022 Platelets (Bld) [#/Vol] 209 10*3/uL 150-450 [facility] Potassium [Moles/volume] in Serum or PlasmaOrdered By: Teresa Lynch on 09-27-2022 Potassium [Moles/Vol] 4.3 mmol/L 3.5-5.1 [facility] Protein [Mass/volume] in Ser um or PlasmaOrdered By: Teresa Lynch on 09-27-2022 Protein [Mass/Vol] 7.0 g/dL 6.4-8.9 [facility] RBC Auto (Bld) [#/Vol]Ordere d By: Teresa Lynch on 09-27-2022 RBC (Bld) [#/Vol] 5.52 10*6/uL 3.90-5.60 [facility] Serum or plasma albumin/glob ulin mass ratioOrdered By: Teresa Lynch on 09-27-2022 Albumin/Globulin [Mass ratio] 1.4 {ratio} [facility] Serum or plasma anion gap de terminationOrdered By: Teresa Lynch on 09-27-2022 Anion gap [Moles/Vol] 14.1 mmol/L 6.0-15.0 [facility] Serum or plasma high density lipoprotein (HDL) cholesterol measurementOrdered By: Teresa Lynch on 09-27-2022 Cholesterol in HDL [Mass/Vol] 21 mg/dL 29-71 [facility] Comment on above: HDL CHOL ATP-III CLA SSIFICATION Cardiovascular RiskHDL > or equal to 60 mg/dL LOWHDL < 40 mg/dL HIGH Serum or plasma total choles terol/high density lipoprotein (HDL) cholesterol mass ratOrdered By: Teresa Lynch on 09-27-2022 Cholesterol.total/Chol esterol in HDL [Mass ratio] 5.0 {ratio} <5.0 [facility] Sodium [Moles/volume] in Ser um or PlasmaOrdered By: Teresa Lynch on 09-27-2022 Sodium [Moles/Vol] 136 mmol/L 136-145 [facility] Thyrotropin [Units/volume] i n Serum or PlasmaOrdered By: Teresa Lynch on 09-27-2022 TSH Qn 3.62 m[IU]/L 0.45-5.33 [facility] Triglyceride [Mass/volume] i n Serum or PlasmaOrdered By: Teresa Lynch on 09-27-2022 Triglyceride [Mass/Vol] 497 mg/dL 0-149 [facility] Comment on above: If the triglyceride [...] on 09-27-2022 Urate [Mass/Vol] 6.2 mg/dL 2.4-7.6 [facility] Urea nitrogen [Mass/volume] in Serum or PlasmaOrdered By: Teresa Lynch on 09-27-2022 Urea nitrogen [Mass/Vol] 15 mg/dL 7- [facility] WBC Auto (Bld) [#/Vol]Ordere d By: Teresa Lynch on 09-27-2022 WBC (Bld) [#/Vol] 12.4 10*3/uL 4.1-10.5 [facility] A1C HEMOGLOBINon 02-15-2022 HbA1c (Bld) [Mass fraction] % [employer] [facility] [employer] Other HbA1c (Bld) [Mass fraction]o n 02-15-2022 A1C HEMOGLOBIN [facility] Other Tobacco Screening.on 022 Adult depression screening assessment No [facility] [address] DO Work Phone: Tobacco use status [facility]PH[facility] b) No [facility] [address] DO Work Phone: A1C HEMOGLOBINon 07-27-2021 HbA1c (Bld) [Mass fraction] 11.8 % [employer] [facility] [employer] Other HbA1c (Bld) [Mass fraction]o n 07-27-2021 A1C HEMOGLOBIN [facility] Other Vital Signs Date Time Vital Sign Value Performing Clinician Facility 02-05-2025 09:05-0400 Diastolic blood pressure 86 mm[Hg] Fabiana [address] [place] [address] 02-05-2025 09:05-0400 Heart rate 71 /min [address] 02-05-2025 09:05-0400 Systolic blood pressure 120 mm[Hg] Fabiana [address] [place] [address] 11-05-2024 16:13-0400 Body height 182.88 cm Teresa Lynch DO Work Phone: [facility] 11-05-2024 16:13-0400 Body mass index (BMI) [Ratio] 28.2 kg/m2 Teresa Lynch DO Work Phone: [facility] 11-05-2024 16:13-0400 Body weight 94.34 kg Teresa Lynch DO Work Phone: [facility] 11-05-2024 16:13-0400 Diastolic blood pressure 67 mm[Hg] Teresa Lynch DO Work Phone: [facility] 11-05-2024 16:13-0400 Heart rate 68 /min Teresa Kuns DO Work Phone: [facility] 11-05-2024 16:13-0400 Respiratory rate 18 /min Teresa Kuns DO Work Phone: [facility] 11-05-2024 16:13-0400 SaO2% (BldA) [Mass fraction] 96 % Teresa Kuns DO Work Phone: [facility] 11-05-2024 16:13-0400 Systolic blood pressure 105 mm[Hg] Teresa Kuns DO Work Phone: [facility] 11-05-2024 13:50-0400 Body weight 96.16 kg Teresa Jetts DO Work Phone: [facility] 11-05-2024 13:50-0400 Diastolic blood pressure 68 mm[Hg] Teresa Kuns DO Work Phone: [facility] 11-05-2024 13:50-0400 Heart rate 70 /min Teresa Kuns DO Work Phone: [facility] 11-05-2024 13:50-0400 Respiratory rate 18 /min Teresa Kuns DO Work Phone: [facility] 11-05-2024 13:50-0400 SaO2% (BldA) [Mass fraction] 98 % Teresa Jetts DO Work Phone: [facility] 11-05-2024 13:50-0400 Systolic blood pressure 108 mm[Hg] Teresa Kuns DO Work Phone: [facility] 10-11-2024 13:40-0400 Heart rate 62 /min Teresa Kuns DO Work Phone: [facility] 10-11-2024 13:40-0400 Respiratory rate 20 /min Teresa Kuns DO Work Phone: [facility] 10-11-2024 08:00-0400 Body temperature 98.3 [degF] Teresa Jetts DO Work Phone: [facility] 10-11-2024 08:00-0400 Diastolic blood pressure 68 mm[Hg] Teresa Kuns DO Work Phone: [facility] 10-11-2024 08:00-0400 SaO2% (BldA) [Mass fraction] 96 % Teresa Kuns DO Work Phone: [facility] 10-11-2024 08:00-0400 Systolic blood pressure 117 mm[Hg] Teresa Jetts DO Work Phone: [facility] 10-11-2024 06:00-0400 Body weight 92.6 kg Teresa Fraustos DO Work Phone: [facility] 10-10-2024 20:48-0400 Body height 182.88 cm Teresa Jetts DO Work Phone: [facility] 10-10-2024 20:30-0400 Diastolic blood pressure 71 mm[Hg] Teresa Jetts DO Work Phone: [facility] 10-10-2024 20:30-0400 Heart rate 78 /min Teresa Jetts DO Work Phone: [facility] 10-10-2024 20:30-0400 Respiratory rate 18 /min Teresa Jetts DO Work Phone: [facility] 10-10-2024 20:30-0400 SaO2% (BldA) [Mass fraction] 97 % Teresa Jetts DO Work Phone: [facility] 10-10-2024 20:30-0400 Systolic blood pressure 117 mm[Hg] Teresa Jetts DO Work Phone: [facility] 10-10-2024 14:36-0400 Body height 182.88 cm Teresa Jetts DO Work Phone: [facility] 10-10-2024 14:36-0400 Body temperature 97.6 [degF] Teresa Fraustos DO Work Phone: [facility] 10-10-2024 14:36-0400 Body weight 88.45 kg Teresa Fraustos DO Work Phone: [facility] 08-30-2024 09:28-0400 Body height 182.88 cm Teresa Fraustos DO Work Phone: [facility] 08-30-2024 09:28-0400 Body mass index (BMI) [Ratio] 27.1 kg/m2 Teresa Fraustos DO Work Phone: [facility] 08-30-2024 09:28-0400 Body weight 90.71 kg Teresa Fraustos DO Work Phone: [facility] 08-30-2024 09:28-0400 Diastolic blood pressure 70 mm[Hg] Teresa Jetts DO Work Phone: [facility] 08-30-2024 09:28-0400 Heart rate 82 /min Teresa Fraustos DO Work Phone: [facility] 08-30-2024 09:28-0400 Respiratory rate 16 /min Teresa Fraustos DO Work Phone: [facility] 08-30-2024 09:28-0400 SaO2% (BldA) [Mass fraction] 99 % Teresa Fraustos DO Work Phone: [facility] 08-30-2024 09:28-0400 Systolic blood pressure 102 mm[Hg] Teresa Jetts DO Work Phone: [facility] 08-13-2024 15:30-0400 Heart rate 66 /min Teresa Jetts DO Work Phone: [facility] 08-13-2024 15:30-0400 Respiratory rate 20 /min Teresa Jetts DO Work Phone: [facility] 08-13-2024 15:14-0400 Diastolic blood pressure 69 mm[Hg] Teresagorge Fraustos DO Work Phone: [facility] 08-13-2024 15:14-0400 SaO2% (BldA) [Mass fraction] 99 % Teresagorge Fraustos DO Work Phone: [facility] 08-13-2024 15:14-0400 Systolic blood pressure 122 mm[Hg] Teresa Kuns DO Work Phone: [facility] 08-13-2024 08:21-0400 Body temperature 97.6 [degF] Teresa Jetts DO Work Phone: [facility] 08-13-2024 06:48-0400 Body weight 91.5 kg Teresagorge Fraustos DO Work Phone: [facility] 08-11-2024 14:57-0400 Body height 182.88 cm Teresa Jetts DO Work Phone: [facility] 08-11-2024 06:29-0400 Body height 182.88 cm Teresa Jetts DO Work Phone: [facility] 08-11-2024 06:29-0400 Body temperature 98 [degF] Teresa Jetts DO Work Phone: [facility] 08-11-2024 06:29-0400 Body weight 91.3 kg Teresagorge Fraustos DO Work Phone: [facility] 08-11-2024 06:29-0400 Diastolic blood pressure 61 mm[Hg] Teresa Kuns DO Work Phone: [facility] 08-11-2024 06:29-0400 Heart rate 92 /min Teresa Jetts DO Work Phone: [facility] 08-11-2024 06:29-0400 Respiratory rate 16 /min Teresa Fraustos DO Work Phone: [facility] 08-11-2024 06:29-0400 SaO2% (BldA) [Mass fraction] 99 % Teresa Lynch DO Work Phone: [facility] 08-11-2024 06:29-0400 Systolic blood pressure 113 mm[Hg] Teresagorge Lynch DO Work Phone: [facility] 08-02-2024 09:02-0500 Blood Pressure Location MARYBEL THORNTONRY [facility] 08-02-2024 09:02-0500 Body temperature 96.98 [degF] MARYBEL RASHI [facility] 08-02-2024 09:02-0500 Diastolic blood pressure 69 mm[Hg] MARYBEL RASHI [facility] 08-02-2024 09:02-0500 Heart rate 80 /min MARYBEL RASHI [facility] 08-02-2024 09:02-0500 Respiratory rate 18 /min MARYBEL RASHI [facility] 08-02-2024 09:02-0500 Systolic blood pressure 118 mm[Hg] MARYBEL RASHI [facility] 05-27-2024 14:47-0500 Blood Pressure Location Yeyo ROWE [facility] 05-27-2024 14:47-0500 Body temperature 98.6 [degF] Yeyo ROWE [facility] 05-27-2024 14:47-0500 Diastolic blood pressure 69 mm[Hg] Yeyo ROWE [facility] 05-27-2024 14:47-0500 Heart rate 70 /min Yeyo ROWE [facility] 05-27-2024 14:47-0500 Respiratory rate 16 /min Yeyo ROWE [facility] 05-27-2024 14:47-0500 Systolic blood pressure 107 mm[Hg] Yeyo ROWE [facility] 05-07-2024 16:35-0500 Body temperature 98 [degF] Teresa Kuns DO Work Phone: [facility] 05-07-2024 16:35-0500 Diastolic blood pressure 55 mm[Hg] Teresa Kuns DO Work Phone: [facility] 05-07-2024 16:35-0500 Heart rate 79 /min Teresa Kuns DO Work Phone: [facility] 05-07-2024 16:35-0500 Respiratory rate 16 /min Teresa Kuns DO Work Phone: [facility] 05-07-2024 16:35-0500 SaO2% (BldA) [Mass fraction] 99 % Teresa Kuns DO Work Phone: [facility] 05-07-2024 16:35-0500 Systolic blood pressure 86 mm[Hg] Teresa Kuns DO Work Phone: [facility] 04-24-2024 11:04-0500 Diastolic blood pressure 60 mm[Hg] Kait Dan MD Work Phone: [facility] 04-24-2024 11:04-0500 Heart rate 86 /min Kait Dan MD Work Phone: [facility] 04-24-2024 11:04-0500 SaO2% (BldA) [Mass fraction] 99 % Kait Dan MD Work Phone: [facility] 04-24-2024 11:04-0500 Systolic blood pressure 122 mm[Hg] Kait Dan MD Work Phone: [facility] 04-23-2024 14:30-0500 Diastolic blood pressure 67 mm[Hg] Kait Dan MD Work Phone: [facility] 04-23-2024 14:30-0500 Heart rate 74 /min Kait Dan MD Work Phone: [facility] 04-23-2024 14:30-0500 Respiratory rate 18 /min Kait Dan MD Work Phone: [facility] 04-23-2024 14:30-0500 SaO2% (BldA) [Mass fraction] 98 % Kait Dan MD Work Phone: [facility] 04-23-2024 14:30-0500 Systolic blood pressure 104 mm[Hg] Kait Dan MD Work Phone: [facility] 04-23-2024 12:52-0500 Body height 182.88 cm Kait Dan MD Work Phone: [facility] 04-23-2024 12:52-0500 Body weight 88.45 kg Kait Dan MD Work Phone: [facility] 04-04-2024 16:48-0400 Body weight 88.45 kg Kait Dan MD Work Phone: [facility] 04-04-2024 14:00-0400 Diastolic blood pressure 62 mm[Hg] Kait Dan MD Work Phone: [facility] 04-04-2024 14:00-0400 Heart rate 86 /min Kait Dan MD Work Phone: [facility] 04-04-2024 14:00-0400 Respiratory rate 18 /min Kait Dan MD Work Phone: [facility] 04-04-2024 14:00-0400 SaO2% (BldA) [Mass fraction] 97 % Kait Dan MD Work Phone: [facility] 04-04-2024 14:00-0400 Systolic blood pressure 100 mm[Hg] Kait Dan MD Work Phone: [facility] 03-21-2024 10:30-0400 Diastolic blood pressure 68 mm[Hg] MD Kait Dan Work Phone: [facility] 03-21-2024 10:30-0400 Heart rate 95 /min MD Kait Dan Work Phone: [facility] 03-21-2024 10:30-0400 Systolic blood pressure 103 mm[Hg] MD Kait Dan Work Phone: [facility] 03-19-2024 17:26-0400 Body temperature 98.01 [degF] Guero Furlong DO Work Phone: [facility] 03-19-2024 17:26-0400 Diastolic blood pressure 78 mm[Hg] Guero Furlong DO Work Phone: [facility] 03-19-2024 17:26-0400 Heart rate 85 /min Guero Furlong DO Work Phone: [facility] 03-19-2024 17:26-0400 Respiratory rate 19 /min Guero Furlong DO Work Phone: [facility] 03-19-2024 17:26-0400 SaO2% (BldA) [Mass fraction] 96 % Guero Furlong DO Work Phone: [facility] 03-19-2024 17:26-0400 Systolic blood pressure 124 mm[Hg] Guero Furlong DO Work Phone: [facility] 03-15-2024 18:27-0400 Body mass index (BMI) [Ratio] 26.75 kg/m2 Guero Furlong DO Work Phone: [facility] 03-15-2024 18:27-0400 Body temperature 98.01 [degF] Gue[facility]clong DO [facility] 03-15-2024 18:27-0400 Body weight 89.45 kg Guero [facility]clong DO [facility] 03-15-2024 18:27-0400 Diastolic blood pressure 94 mm[Hg] Guero Jesusitalong DO [facility] 03-15-2024 18:27-0400 Heart rate 84 /min Guero Jesusitalong DO Work Phone: [facility] 03-15-2024 18:27-0400 Respiratory rate 18 /min Guero Jesusitalong DO Work Phone: [facility] 03-15-2024 18:27-0400 SaO2% (BldA) [Mass fraction] 95 % Guero Mclong DO Work Phone: [facility] 03-15-2024 18:27-0400 Systolic blood pressure 131 mm[Hg] Guero Mclong DO Work Phone: [facility] 03-13-2024 11:08-0400 Body temperature 97.8 [degF] MD Kait Dan Work Phone: [facility] 03-13-2024 11:08-0400 Diastolic blood pressure 82 mm[Hg] MD Kait Dan Work Phone: [facility] 03-13-2024 11:08-0400 Heart rate 77 /min MD Kait Dan Work Phone: [facility] 03-13-2024 11:08-0400 Respiratory rate 16 /min MD Kait Dan Work Phone: [facility] 03-13-2024 11:08-0400 SaO2% (BldA) [Mass fraction] 99 % MD Kait Dan Work Phone: [facility] 03-13-2024 11:08-0400 Systolic blood pressure 149 mm[Hg] MD Kait Dan Work Phone: [facility] 03-13-2024 06:00-0400 Body weight 90.2 kg MD Kait Dan Work Phone: [facility] 03-09-2024 12:29-0400 Body height 180.34 cm MD Kait Dan Work Phone: [facility] 03-08-2024 21:00-0400 Diastolic blood pressure 72 mm[Hg] MD Kait Dan Work Phone: [facility] 03-08-2024 21:00-0400 Heart rate 93 /min MD Kait Dan Work Phone: [facility] 03-08-2024 21:00-0400 SaO2% (BldA) [Mass fraction] 97 % MD Kait Dan Work Phone: [facility] 03-08-2024 21:00-0400 Systolic blood pressure 134 mm[Hg] MD Kait Dan Work Phone: [facility] 03-08-2024 20:30-0400 Respiratory rate 16 /min MD Kait Dan Work Phone: [facility] 03-08-2024 20:07-0400 Body temperature 98.4 [degF] MD Kait Dan Work Phone: [facility] 03-08-2024 14:10-0400 Body height 180.34 cm MD Kait Dan Work Phone: [facility] 03-08-2024 14:10-0400 Body weight 89.3 kg MD Kait Dan Work Phone: [facility] 03-06-2024 15:51-0400 Body temperature 98.1 [degF] MD Kiat Dan Work Phone: [facility] 03-06-2024 15:51-0400 Diastolic blood pressure 73 mm[Hg] MD Kait Dan Work Phone: [facility] 03-06-2024 15:51-0400 Heart rate 78 /min MD Kait Dan Work Phone: [facility] 03-06-2024 15:51-0400 Respiratory rate 16 /min MD Kait Dan Work Phone: [facility] 03-06-2024 15:51-0400 SaO2% (BldA) [Mass fraction] 97 % MD Kait Dan Work Phone: [facility] 03-06-2024 15:51-0400 Systolic blood pressure 140 mm[Hg] MD Kait Dan Work Phone: [facility] 03-06-2024 05:29-0400 Body weight 90.9 kg MD Kait Dan Work Phone: [facility] 03-05-2024 14:26-0400 Body height 182.88 cm MD Kait Dan Work Phone: [facility] 03-03-2024 17:00-0400 Diastolic blood pressure 67 mm[Hg] MD Kait Dan Work Phone: [facility] 03-03-2024 17:00-0400 Heart rate 86 /min MD Kait Dan Work Phone: [facility] 03-03-2024 17:00-0400 Respiratory rate 20 /min MD Kait Dan Work Phone: [facility] 03-03-2024 17:00-0400 SaO2% (BldA) [Mass fraction] 100 % MD Kait Dan Work Phone: [facility] 03-03-2024 17:00-0400 Systolic blood pressure 100 mm[Hg] MD Kait Dan Work Phone: [facility] 03-03-2024 13:45-0400 Body height 182.88 cm MD Kait Dan Work Phone: [facility] 03-03-2024 13:45-0400 Body temperature 97.9 [degF] MD Kait Dan Work Phone: [facility] 03-03-2024 13:45-0400 Body weight 91.5 kg MD Kait Dan Work Phone: [facility] 02-29-2024 09:27-0400 Body height 182.9 cm Mike Montes MD Work Phone: [facility] 02-29-2024 09:27-0400 Body mass index (BMI) [Ratio] 26.85 kg/m2 Mike Montes MD Work Phone: [facility] 02-29-2024 09:27-0400 Body temperature 98.01 [degF] Mike Montes MD Work Phone: [facility] 02-29-2024 09:27-0400 Body weight 89.81 kg Mike Montes MD Work Phone: [facility] 02-29-2024 09:27-0400 Diastolic blood pressure 62 mm[Hg] Mike Montes MD Work Phone: [facility] 02-29-2024 09:27-0400 Heart rate 77 /min Mike Montes MD Work Phone: [facility] 02-29-2024 09:27-0400 Respiratory rate 20 /min Mike Montes MD Work Phone: [facility] 02-29-2024 09:27-0400 SaO2% (BldA) [Mass fraction] 99 % Mike Montes MD Work Phone: [facility] 02-29-2024 09:27-0400 Systolic blood pressure 90 mm[Hg] Mike Montes MD Work Phone: [facility] 02-28-2024 14:52-0400 Body mass index (BMI) [Ratio] 26.65 kg/m2 Guero Tam DO Work Phone: [facility] 02-28-2024 14:52-0400 Body temperature 98.01 [degF] Guero Furlong DO Work Phone: [facility] 02-28-2024 14:52-0400 Body weight 89.13 kg Guero Furlong DO Work Phone: [facility] 02-28-2024 14:52-0400 Diastolic blood pressure 77 mm[Hg] Guero Furlong DO Work Phone: [facility] 02-28-2024 14:52-0400 Heart rate 95 /min Guero Furlong DO Work Phone: [facility] 02-28-2024 14:52-0400 Respiratory rate 18 /min Guero Furlong DO Work Phone: [facility] 02-28-2024 14:52-0400 SaO2% (BldA) [Mass fraction] 98 % Guero Furlong DO Work Phone: [facility] 02-28-2024 14:52-0400 Systolic blood pressure 129 mm[Hg] Guero Furlong DO Work Phone: [facility] 02-21-2024 17:40-0400 Hourly Rounding Mike Halean [facility] 02-21-2024 17:40-0400 Promise to Return Mike Simon [facility] 02-21-2024 16:32-0400 Hourly Rounding Mohnegro Simon [facility] 02-21-2024 16:32-0400 Promise to Return Mohnegro Simon [facility] 02-21-2024 15:00-0400 Hourly Rounding Mike Simon [facility] 02-21-2024 15:00-0400 Promise to Return Mike Simon [facility] 02-21-2024 10:51-0400 Heart rate 70 /min Mike Simon [facility] 02-21-2024 10:51-0400 SaO2% (BldA) [Mass fraction] 100 % Mike Simon [facility] 02-21-2024 10:47-0400 Body temperature 98.06 [degF] Mike Simon [facility] 02-21-2024 10:46-0400 Diastolic blood pressure 63 mm[Hg] Mike Simon [facility] 02-21-2024 10:46-0400 Mean blood pressure 76 mm[Hg] Mike Simon [facility] 02-21-2024 10:46-0400 Systolic blood pressure 101 mm[Hg] Mike Simon [facility] 02-21-2024 10:15-0400 Blood Pressure Location Mike Simon [facility] 02-21-2024 10:15-0400 Diastolic blood pressure 58 mm[Hg] Mike Simon [facility] 02-21-2024 10:15-0400 Heart rate 76 /min Mike Simon [facility] 02-21-2024 10:15-0400 Mean blood pressure 74 mm[Hg] Mohamed Simon [facility] 02-21-2024 10:15-0400 SaO2% (BldA) [Mass fraction] 100 % Mohamed Simon [facility] 02-21-2024 10:15-0400 Systolic blood pressure 106 mm[Hg] Mohamed Simon [facility] 02-21-2024 08:27-0400 Diastolic blood pressure 61 mm[Hg] Mike Halean [facility] 02-21-2024 08:27-0400 Systolic blood pressure 100 mm[Hg] Mike Simon [facility] 02-21-2024 08:25-0400 Heart rate 50 /min Mike Simon [facility] 02-21-2024 07:36-0400 Heart rate 68 /min Mike Simon [facility] 02-21-2024 07:36-0400 SaO2% (BldA) [Mass fraction] 100 % Mike Montes [facility] 02-21-2024 07:36-0400 Mean blood pressure 74 mm[Hg] Mike Montes [facility] 02-21-2024 07:36-0400 Body temperature 97.52 [degF] Mike Simon [facility] 02-21-2024 00:00-0400 Blood Pressure Location Mike Montes [facility] 02-21-2024 00:00-0400 Body temperature 97.52 [degF] Mike Halean [facility] 02-21-2024 00:00-0400 Mean blood pressure 77 mm[Hg] Mike Simon [facility] 02-20-2024 21:16-0400 Heart rate 83 /min Mike Simon [facility] 02-20-2024 19:29-0400 Mean blood pressure 82 mm[Hg] iMke Simon [facility] 02-20-2024 19:29-0400 Body temperature 98.06 [degF] Mohamed Simon [facility] 02-20-2024 15:37-0400 gluc 104 mg/dL Mohamed Simon [facility] 02-20-2024 11:00-0400 Body temperature 98.42 [degF] Mohamed Simon [facility] 02-20-2024 11:00-0400 gluc 165 mg/dL Mohamed Simon [facility] 02-20-2024 11:00-0400 Mean blood pressure 81 mm[Hg] Mohamed Simon [facility] 02-20-2024 09:36-0400 Heart rate 96 /min Mohamed Simon [facility] 02-20-2024 09:00-0400 gluc 250 mg/dL Mohamed Simon [facility] 02-20-2024 09:00-0400 Respiratory rate 16 /min Mohamed Simon [facility] 02-20-2024 05:00-0400 Respiratory rate 18 /min Mohamed Simon [facility] 02-19-2024 23:00-0400 Respiratory rate 18 /min Mohamed Simon [facility] 02-15-2024 05:17-0400 Heart rate 83 /min Mohamed Simon [facility] 02-15-2024 00:28-0400 Heart rate 83 /min Mohamed Simon [facility] 02-14-2024 06:15-0400 Heart rate 89 /min Mohamed Simon [facility] 02-12-2024 16:40-0400 Respiratory rate 17 /min Mohamed Simon [facility] 02-12-2024 16:15-0400 Body temperature 97.7 [degF] Mike Montes [facility] 02-12-2024 16:15-0400 Respiratory rate 19 /min Mike Montes [facility] 02-12-2024 16:00-0400 Respiratory rate 18 /min Mike Montes [facility] 02-12-2024 14:46-0400 Body temperature 98.06 [degF] Mike Montes [facility] 01-18-2024 08:56-0400 Body height 182.9 cm Mike Montes MD Work Phone: [facility] 01-18-2024 08:56-0400 Body mass index (BMI) [Ratio] 27.8 kg/m2 Mike Montes MD Work Phone: [facility] 01-18-2024 08:56-0400 Body weight 92.99 kg Mike Montes MD Work Phone: [facility] 01-18-2024 08:56-0400 Diastolic blood pressure 67 mm[Hg] Mike Montes MD Work Phone: [facility] 01-18-2024 08:56-0400 Heart rate 122 /min Mike Montes MD Work Phone: [facility] 01-18-2024 08:56-0400 SaO2% (BldA) [Mass fraction] 100 % Mike Montes MD Work Phone: [facility] 01-18-2024 08:56-0400 Systolic blood pressure 108 mm[Hg] Mike Montes MD Work Phone: [facility] 01-17-2024 12:34-0400 Body height 182.[address] 01-17-2024 12:34-0400 Body mass index (BMI) [Ratio] 28.62 kg/m2 [address] 01-17-2024 12:34-0400 Body weight 95.[address] 01-17-2024 12:34-0400 Diastolic blood pressure 58 mm[Hg] [address] 01-17-2024 12:34-0400 Systolic blood pressure 102 mm[Hg] [address] 11-30-2023 23:10-0400 Body mass index (BMI) [Ratio] 27.86 kg/m2 Guero Furlong DO Work Phone: [facility] 11-30-2023 23:10-0400 Body temperature 97.3 [degF] Guero Furlong DO Work Phone: [facility] 11-30-2023 23:10-0400 Body weight 93.17 kg Guero Furlong DO Work Phone: [facility] 11-30-2023 23:10-0400 Diastolic blood pressure 74 mm[Hg] Guero Furlong DO Work Phone: [facility] 11-30-2023 23:10-0400 Heart rate 70 /min Guero Furlong DO Work Phone: [facility] 11-30-2023 23:10-0400 Respiratory rate 18 /min Guero Furlong DO Work Phone: [facility] 11-30-2023 23:10-0400 SaO2% (BldA) [Mass fraction] 98 % Guero Furlong DO Work Phone: [facility] 11-30-2023 23:10-0400 Systolic blood pressure 122 mm[Hg] Guero Furlong DO Work Phone: [facility] 11-30-2023 08:49-0400 Body height 182.9 cm Mike Montes MD Work Phone: [facility] 11-30-2023 08:49-0400 Body mass index (BMI) [Ratio] 28.21 kg/m2 Mike Montes MD Work Phone: [facility] 11-30-2023 08:49-0400 Body weight 94.35 kg Mike Montes MD Work Phone: [facility] [facility] 11-30-2023 08:49-0400 Diastolic blood pressure 78 mm[Hg] Mike Montes MD Work Phone: [facility] [facility] 11-30-2023 08:49-0400 Heart rate 94 /min Mike Montes MD Work Phone: [facility] 11-30-2023 08:49-0400 SaO2% (BldA) [Mass fraction] 99 % Mike Montes MD Work Phone: [facility] [facility] 11-30-2023 08:49-0400 Systolic blood pressure 109 mm[Hg] Mike Montes MD Work Phone: [facility] [facility] 11-24-2023 18:59-0400 Body mass index (BMI) [Ratio] 27.85 kg/m2 Guero Furlong DO Work Phone: [facility] 11-24-2023 18:59-0400 Body temperature 98.4 [degF] Guero Furlong DO Work Phone: [facility] 11-24-2023 18:59-0400 Body weight 93.17 kg Guero Furlong DO Work Phone: [facility] 11-24-2023 18:59-0400 Diastolic blood pressure 70 mm[Hg] Guero Furlong DO Work Phone: [facility] 11-24-2023 18:59-0400 Heart rate 68 /min Guero Furlong DO Work Phone: [facility] 11-24-2023 18:59-0400 Systolic blood pressure 122 mm[Hg] Guero Furlong DO Work Phone: [facility] 11-07-2023 15:50-0400 Body temperature 98.4 [degF] Guero Furlong DO Work Phone: [facility] 11-07-2023 15:50-0400 Diastolic blood pressure 97 mm[Hg] Guero Furlong DO Work Phone: [facility] 11-07-2023 15:50-0400 Heart rate 77 /min Guero Furlong DO Work Phone: [facility] 11-07-2023 15:50-0400 Systolic blood pressure 157 mm[Hg] Guero Furlong DO Work Phone: [facility] 11-03-2023 14:11-0400 Body mass index (BMI) [Ratio] 28.02 kg/m2 Guero Furlong DO Work Phone: [facility] 11-03-2023 14:11-0400 Body temperature 97.7 [degF] Guero Furlong DO Work Phone: [facility] 11-03-2023 14:11-0400 Body weight 93.71 kg Guero Furlong DO Work Phone: [facility] 11-03-2023 14:11-0400 Diastolic blood pressure 76 mm[Hg] Guero Furlong DO Work Phone: [facility] 11-03-2023 14:11-0400 Heart rate 75 /min Guero Furlong DO Work Phone: [facility] 11-03-2023 14:11-0400 Respiratory rate 20 /min Guero Furlong DO Work Phone: [facility] 11-03-2023 14:11-0400 SaO2% (BldA) [Mass fraction] 97 % Guero Furlong DO Work Phone: [facility] 11-03-2023 14:11-0400 Systolic blood pressure 122 mm[Hg] Gu[facility]long [facility] 10-25-2023 22:00-0400 Body mass index (BMI) [Ratio] 29.7 kg/m2 Guero Furlong DO [facility] 10-25-2023 22:00-0400 Body temperature 97.59 [degF] Guero Jesusitalong DO [facility] 10-25-2023 22:00-0400 Body weight 99.34 kg Guero Jesusitalong DO [facility] 10-25-2023 22:00-0400 Diastolic blood pressure 68 mm[Hg] Guero Jesusitalong DO [facility] 10-25-2023 22:00-0400 Heart rate 70 /min Guero Mclong DO [facility] 10-25-2023 22:00-0400 Respiratory rate 20 /min Guero Mclong DO [facility] 10-25-2023 22:00-0400 SaO2% (BldA) [Mass fraction] 97 % Guero Jesusitalong DO [facility] 10-25-2023 22:00-0400 Systolic blood pressure 128 mm[Hg] Guero Jesusitalong DO Work Phone: [facility] 10-24-2023 10:56-0400 Body height 182.9 cm Raulito Inman MD Work Phone: [facility] 10-24-2023 10:56-0400 Diastolic blood pressure 86 mm[Hg] Raulito Inman MD Work Phone: [facility] 10-24-2023 10:56-0400 Heart rate 104 /min Raulito Inman MD Work Phone: [facility] 10-24-2023 10:56-0400 Systolic blood pressure 134 mm[Hg] Raulito Inman MD Work Phone: [facility] 10-23-2023 09:37-0400 Blood Pressure Location Mike Simon [facility] 10-23-2023 09:37-0400 Diastolic blood pressure 82 mm[Hg] Mike Montes [facility] 10-23-2023 09:37-0400 Heart rate 107 /min Mike Montes [facility] 10-23-2023 09:37-0400 SaO2% (BldA) [Mass fraction] 98 % Mike Montes [facility] 10-23-2023 09:37-0400 Systolic blood pressure 130 mm[Hg] Mike Montes [facility] 10-18-2023 08:26-0400 Diastolic blood pressure 90 mm[Hg] Mike Montes MD Work Phone: [facility] 10-18-2023 08:26-0400 Systolic blood pressure 138 mm[Hg] Mike Montes MD Work Phone: [facility] 10-18-2023 08:25-0400 Body height 182.9 cm Mike Montes MD Work Phone: [facility] 10-18-2023 08:25-0400 Body mass index (BMI) [Ratio] 28.07 kg/m2 Mike Montes MD Work Phone: [facility] 10-18-2023 08:25-0400 Body weight 93.89 kg Mike Montes MD Work Phone: [facility] 10-17-2023 13:51-0400 Body temperature 98.4 [degF] Guero Furlong DO Work Phone: [facility] 10-17-2023 13:51-0400 Body weight 93.89 kg Guero Furlong DO Work Phone: [facility] 10-17-2023 13:51-0400 Diastolic blood pressure 70 mm[Hg] Guero Furlong DO Work Phone: [facility] 10-17-2023 13:51-0400 Heart rate 94 /min Guero Furlong DO Work Phone: [facility] 10-17-2023 13:51-0400 Respiratory rate 18 /min Guero Furlong DO Work Phone: [facility] 10-17-2023 13:51-0400 SaO2% (BldA) [Mass fraction] 97 % Guero Furlong DO Work Phone: [facility] 10-17-2023 13:51-0400 Systolic blood pressure 132 mm[Hg] Guero Furlong DO Work Phone: [facility] 10-10-2023 23:33-0400 Body temperature 98.1 [degF] Guero Furlong DO Work Phone: [facility] 10-10-2023 23:33-0400 Diastolic blood pressure 78 mm[Hg] Guero Furlong DO Work Phone: [facility] 10-10-2023 23:33-0400 Heart rate 102 /min Guero Furlong DO Work Phone: [facility] 10-10-2023 23:33-0400 Respiratory rate 18 /min Guero Furlong DO Work Phone: [facility] 10-10-2023 23:33-0400 SaO2% (BldA) [Mass fraction] 98 % Guero Furlong DO Work Phone: [facility] 10-10-2023 23:33-0400 Systolic blood pressure 142 mm[Hg] Guero Furlong DO Work Phone: [facility] 10-06-2023 16:50-0400 Body temperature 98.4 [degF] Guero Furlong DO Work Phone: [facility] 10-06-2023 16:50-0400 Body weight 93.89 kg Guero Furlong DO Work Phone: [facility] 10-06-2023 16:50-0400 Diastolic blood pressure 71 mm[Hg] Guero Furlong DO Work Phone: [facility] 10-06-2023 16:50-0400 Heart rate 98 /min Guero Furlong DO Work Phone: [facility] 10-06-2023 16:50-0400 Respiratory rate 18 /min Guero Furlong DO Work Phone: [facility] 10-06-2023 16:50-0400 SaO2% (BldA) [Mass fraction] 96 % Guero Furlong DO Work Phone: [facility] 10-06-2023 16:50-0400 Systolic blood pressure 117 mm[Hg] Guero Furlong DO Work Phone: [facility] 07-31-2023 12:00-0500 Diastolic blood pressure 63 mm[Hg] DO Teresa Kuns Work Phone: [facility] 07-31-2023 12:00-0500 Heart rate 75 /min DO Teresa Kuns Work Phone: [facility] 07-31-2023 12:00-0500 Systolic blood pressure 108 mm[Hg] DO Teresa Kuns Work Phone: [facility] 07-31-2023 08:33-0500 Respiratory rate 18 /min DO Teresa Kuns Work Phone: [facility] 07-12-2023 18:03-0500 Diastolic blood pressure 73 mm[Hg] DO Teresa Kuns Work Phone: [facility] 07-12-2023 18:03-0500 Heart rate 76 /min DO Teresa Kuns Work Phone: [facility] 07-12-2023 18:03-0500 Respiratory rate 20 /min DO Teresa Lynch Work Phone: [facility] 07-12-2023 18:03-0500 SaO2% (BldA) [Mass fraction] 98 % DO Teresa Lynch Work Phone: [facility] 07-12-2023 18:03-0500 Systolic blood pressure 125 mm[Hg] DO Teresa Lynch Work Phone: [facility] 07-12-2023 16:15-0500 Body height 182.88 cm DO Teresa Lynch Work Phone: [facility] 07-12-2023 16:15-0500 Body temperature 98.9 [degF] DO Teresa Lynch Work Phone: [facility] 07-12-2023 16:15-0500 Body weight 99.25 kg DO Teresa Lynch Work Phone: [facility] 06-02-2023 10:56-0500 Blood Pressure Location Yeyo ROWE [facility] 06-02-2023 10:56-0500 Body temperature 96.98 [degF] Yeyo ROWE [facility] 06-02-2023 10:56-0500 Diastolic blood pressure 84 mm[Hg] Yeyo ROWE [facility] 06-02-2023 10:56-0500 Heart rate 68 /min Yeyo ROWE [facility] 06-02-2023 10:56-0500 Systolic blood pressure 124 mm[Hg] Yeyo ROWE [facility] 04-06-2023 13:15-0400 Body height 180.34 cm Teresa Lynch Other [employer] Other 04-06-2023 13:15-0400 Body mass index (BMI) [Ratio] 29.43 kg/m2 Teresa Lynch Other [employer] Other 04-06-2023 13:15-0400 Body weight 95.71 kg Teresa Lynch Other [employer] Other 04-06-2023 13:15-0400 Diastolic blood pressure 70 mm[Hg] Teresa Lynch Other [employer] Other 04-06-2023 13:15-0400 Respiratory rate 18 /min Teresa Lynch Other [employer] Other 04-06-2023 13:15-0400 SaO2% (BldA) [Mass fraction] 97 % Teresa Lynch Other [employer] Other 04-06-2023 13:15-0400 Systolic blood pressure 100 mm[Hg] Teresa Lynch Other [employer] Other 03-15-2023 08:30-0400 Body height 180.34 cm Teresa Lynch Other [employer] Other 03-15-2023 08:30-0400 Body mass index (BMI) [Ratio] 29.01 kg/m2 Teresa Lynch Other [employer] Other 03-15-2023 08:30-0400 Body weight 94.35 kg Teresa Lynch Other [employer] Other 03-15-2023 08:30-0400 Diastolic blood pressure 62 mm[Hg] Teresa Lynch Other [employer] Other 03-15-2023 08:30-0400 Respiratory rate 16 /min Teresa Lynch Other [employer] Other 03-15-2023 08:30-0400 SaO2% (BldA) [Mass fraction] 97 % Teresagorge Lynch Other [employer] Other 03-15-2023 08:30-0400 Systolic blood pressure 88 mm[Hg] Teresa Lynch Other [employer] Other 02-15-2023 10:04-0400 Body height 182.88 cm Teresa Guerra Rory Work Phone: [facility] [employer] 250 DO Work Phone: 02-15-2023 10:04-0400 Body mass index (BMI) [Ratio] 28.62 kg/m2 Tereas Guerra Rory Work Phone: [facility] [employer] 250 DO Work Phone: 02-15-2023 10:04-0400 Body surface area Derived from formula 2.18 m2 Teresa Guerra Rory Work Phone: [employer] 250 DO Work Phone: 02-15-2023 10:04-0400 Body weight 95.71 kg Teresa Fraustojoe Work Phone: [employer] 250 DO Work Phone: 02-15-2023 10:04-0400 Diastolic blood pressure 70 mm[Hg] Teresa Lynch Work Phone: [facility] 250 DO Work Phone: 02-15-2023 10:04-0400 Heart rate 76 /min Teresa Lynch Work Phone: [facility] 250 DO Work Phone: 02-15-2023 10:04-0400 Systolic blood pressure 102 mm[Hg] Teresa Lynch Work Phone: [facility] 250 DO Work Phone: 01-30-2023 10:23-0400 Blood Pressure Location Yeyo ROWE [facility] 01-30-2023 10:23-0400 Diastolic blood pressure 74 mm[Hg] Yeyo ROWE [facility] 01-30-2023 10:23-0400 Heart rate 68 /min Yeyo ROWE [facility] 01-30-2023 10:23-0400 Respiratory rate 16 /min Yeyoneel ROWE [facility] 01-30-2023 10:23-0400 Systolic blood pressure 130 mm[Hg] Yeyo ROWE [facility] 01-11-2023 15:08-0400 Body height 180.34 cm Teresa Lynch Work Phone: [facility] [employer] 600 DO Work Phone: 01-11-2023 15:08-0400 Body mass index (BMI) [Ratio] 30.13 kg/m2 Teresa Lynch Work Phone: [facility] 600 DO Work Phone: 01-11-2023 15:08-0400 Body surface area Derived from formula 2.18 m2 Teresa Lynch Work Phone: [facility] [employer] 600 DO Work Phone: 01-11-2023 15:08-0400 Body weight 97.98 kg Teresa Fraustojoe Work Phone: [facility] [employer] 600 DO Work Phone: 01-11-2023 15:08-0400 Diastolic blood pressure 86 mm[Hg] Teresa Lynch Work Phone: [facility] [employer] 600 DO Work Phone: 01-11-2023 15:08-0400 Heart rate 74 /min Teresa Lynch Work Phone: [facility] [employer] 600 DO Work Phone: 01-11-2023 15:08-0400 Systolic blood pressure 122 mm[Hg] Teresa Lynch Work Phone: [facility] [employer] 600 DO Work Phone: 12-01-2022 12:45-0400 Body height 180.34 cm Teresa Lynch Other [facility] [employer] Other 12-01-2022 12:45-0400 Body mass index (BMI) [Ratio] 29.73 kg/m2 Teresa Lynch Other [employer] [facility] [employer] Other 12-01-2022 12:45-0400 Body weight 96.71 kg Teresa Lynch Other [employer] Other 12-01-2022 12:45-0400 Diastolic blood pressure 70 mm[Hg] Teresa Lynch Other [facility] [employer] Other 12-01-2022 12:45-0400 Respiratory rate 18 /min Teresa Lynch Other [employer] Other 12-01-2022 12:45-0400 SaO2% (BldA) [Mass fraction] 94 % Teresa Lynch Other [employer] Other 12-01-2022 12:45-0400 Systolic blood pressure 122 mm[Hg] Teresa Lynch Other [employer] Other 11-23-2022 11:38-0400 Blood Pressure Location Yeyo ROWE [facility] 11-23-2022 11:38-0400 Diastolic blood pressure 85 mm[Hg] Yeyo ROWE [facility] 11-23-2022 11:38-0400 Heart rate 76 /min Yeyo ROWE [facility] 11-23-2022 11:38-0400 Systolic blood pressure 130 mm[Hg] Yeyo ROWE [facility] 07-04-2022 10:30-0500 Body height 180.34 cm Teresa Lynch Other [employer] Other 07-04-2022 10:30-0500 Body mass index (BMI) [Ratio] 29.43 kg/m2 Teresa Lynch Other [employer] Other 07-04-2022 10:30-0500 Body weight 95.71 kg Teresa Lynch Other [employer] Other 07-04-2022 10:30-0500 Diastolic blood pressure 86 mm[Hg] Teresa Lynch Other [employer] Other 07-04-2022 10:30-0500 Respiratory rate 16 /min Teresa Lynch Other [employer] Other 07-04-2022 10:30-0500 Systolic blood pressure 146 mm[Hg] Teresa Lynch Other [employer] Other 02-15-2022 13:45-0400 Body height 180.34 cm Teresa Lynch Other [employer] Other 02-15-2022 13:45-0400 Body mass index (BMI) [Ratio] 30.12 kg/m2 Teresa Lnych Other [employer] Other 02-15-2022 13:45-0400 Body weight 97.98 kg Teresa Lynch Other [employer] Other 02-15-2022 13:45-0400 Diastolic blood pressure 62 mm[Hg] Teresa Lynch Other [employer] Other 02-15-2022 13:45-0400 Respiratory rate 16 /min Teresa Lynch Other [employer] Other 02-15-2022 13:45-0400 SaO2% (BldA) [Mass fraction] 96 % Teresa Lynch Other [employer] Other 02-15-2022 13:45-0400 Systolic blood pressure 100 mm[Hg] Teresa Lynch Other [employer] Other 10-26-2021 10:01-0400 Body height 180.34 cm Teresa Lynch Work Phone: [place] [address] DO Work Phone: 10-26-2021 10:01-0400 Body mass index (BMI) [Ratio] 29.99 kg/m2 Teresa Lynch Work Phone: [facility] 250 DO Work Phone: 10-26-2021 10:01-0400 Body surface area Derived from formula 2.17 m2 Teresa Lynch Work Phone: [facility] 250 DO Work Phone: 10-26-2021 10:01-0400 Body weight 97.52 kg Teresa Lynch Work Phone: [facility] 250 DO Work Phone: 10-26-2021 10:01-0400 Diastolic blood pressure 70 mm[Hg] Teresa Lynch Work Phone: [facility] 250 DO Work Phone: 10-26-2021 10:01-0400 Heart rate 68 /min Teresa Lynch Work Phone: [facility] 250 DO Work Phone: 10-26-2021 10:01-0400 Systolic blood pressure 104 mm[Hg] Teresa Lynch Work Phone: [facility] [employer] 250 DO Work Phone: 10-19-2021 12:20-0400 Body height 180.34 cm Lazada [place] Other [employer] Other 10-19-2021 12:20-0400 Body mass index (BMI) [Ratio] 30.65 kg/m2 Lazada [place] Other [employer] Other 10-19-2021 12:20-0400 Body temperature 96.8 [degF] [employer] Other [employer] Other 10-19-2021 12:20-0400 Body weight 99.7 kg Amina Kinseys Other [employer] Other 10-19-2021 12:20-0400 Diastolic blood pressure 71 mm[Hg] Azjuan Kinseys Other [employer] Other 10-19-2021 12:20-0400 Respiratory rate 18 /min Amina Kinseys Other [employer] Other 10-19-2021 12:20-0400 SaO2% (BldA) [Mass fraction] 98 % Amina Kinseys Other [employer] Other 10-19-2021 12:20-0400 Systolic blood pressure 111 mm[Hg] Amina Kinseys Other [employer] Other 07-27-2021 14:00-0500 Body height 180.34 cm Teresa Lynch Other [employer] Other 07-27-2021 14:00-0500 Body mass index (BMI) [Ratio] 30.4 kg/m2 Teresa Lynch Other [employer] Other 07-27-2021 14:00-0500 Body weight 98.88 kg Teresa Lynch Other [employer] Other 07-27-2021 14:00-0500 Diastolic blood pressure 76 mm[Hg] Teresa Lynch Other [employer] Other 02-22-2022 14:00-0500 Respiratory rate 18 /min Teresa Lynch Other [employer] Other 07-27-2021 14:00-0500 SaO2% (BldA) [Mass fraction] 98 % Teresa Rory Other [employer] Other 07-27-2021 14:00-0500 Systolic blood pressure 112 mm[Hg] Teresa Lynch Other [employer] Other Encounters Encounter Date Encounter Type Care Provider Facility Start: 02-05-2025 End: 02-05-2025 ambulatory SIMMONS [facility] Start: 02-05-2025 End: 02-05-2025 Subsequent hospital visit by physician Fabiana Pinon Sc Admin Room 1 [facility] Comment on above: Chest pain, unspecif ied type Start: 01-31-2025 End: 01-31-2025 ambulatory Yeyo ROWE Facility:[facility] Start: 01-31-2025 End: 01-31-2025 Patient encounter procedure Yeyo ROWE [facility] Start: 01-02-2025 End: 01-02-2025 Telephone encounter Baylee Vlad [facility] [employer] Start: 11-05-2024 End: 11-05-2024 ambulatory Teresa Lynch DO Work Phone: [facility] Work Phone: Start: 11-05-2024 End: 11-05-2024 Teresa Lynch DO Work Phone: [facility] Work Phone: Start: 11-05-2024 End: 11-05-2024 ambulatory Teresa Lynch DO Work Phone: [facility] Work Phone: Start: 11-05-2024 End: 11-05-2024 Teresa Lynch DO Work Phone: [facility] [place] Work Phone: Start: 10-26-2024 End: 10-26-2024 Patient encounter procedure Teresa Lynch DO Work Phone: [facility] [place] Work Phone: Start: 10-26-2024 End: 10-26-2024 Teresa Lynch DO Work Phone: [facility] [place] Work Phone: Start: 10-26-2024 End: 10-26-2024 ambulatory Teresa Lynch DO Work Phone: [facility] Work Phone: Start: 10-10-2024 End: 10-11-2024 ambulatory Teresa Lynch Facility:[facility] Start: 10-10-2024 End: 10-11-2024 Evaluation and management of inpatient Teresa Lynch DO Work Phone: [facility] [place] [facility] Work Phone: Start: 10-10-2024 observation encounter Teresa ramirez DO Work Phone: [facility] Work Phone: Start: 10-10-2024 End: 10-11-2024 Teresagorge Lynch DO Work Phone: [facility] [place] [facility] Work Phone: Start: 10-04-2024 ambulatory [facility] Start: 09-27-2024 End: 09-27-2024 ambulatory Yeyo ROWE Facility:[facility] [place] Start: 08-30-2024 End: 08-30-2024 ambulatory Teresa Fraustos DO Work Phone: [facility] Work Phone: Start: 08-30-2024 End: 08-30-2024 Patient encounter procedure Teresa Lynch DO Work Phone: [facility] [place] Work Phone: Start: 08-30-2024 End: 08-30-2024 Teresa Lynch DO Work Phone: [facility] [place] Work Phone: Start: 08-11-2024 Non-patient / Non-visit Teresa Lynch DO Work Phone: [facility] [place] Work Phone: Start: 08-11-2024 Teresa Lynch DO Work Phone: [facility] [place] Work Phone: Start: 08-11-2024 End: 08-13-2024 Evaluation and management of inpatient Teresa Lynch DO Work Phone: [facility] [place] [facility] Work Phone: Start: 08-11-2024 End: 08-13-2024 Teresa Lynch DO Work Phone: [facility] [place] [facility] Work Phone: Start: 08-02-2024 End: 08-02-2024 ambulatory PA-C MARYBEL VANG Facility:[facility] Start: 08-02-2024 End: 08-02-2024 Patient encounter procedure MARYBEL VANG [facility] Start: 07-24-2024 Non-patient / Non-visit Teresagorge Lynch DO Work Phone: [facility] Work Phone: Start: 07-23-2024 End: 07-23-2024 Discharged Recurring Teresa Lynch DO Work Phone: [facility] [place] Start: 07-23-2024 Registered Recurring Teresa diaz DO Work Phone: [facility] [place] Start: 07-23-2024 End: 07-23-2024 ambulatory Teresa Lynch DO Work Phone: [facility] Work Phone: Start: 05-27-2024 End: 05-27-2024 ambulatory Yeyo ROWE Facility[facility] Start: 05-27-2024 End: 05-27-2024 Lab Drop off Yeyo ROWE [facility] Start: 05-27-2024 End: 05-27-2024 ambulatory Yeyo ROWE Facility:[facility] Start: 05-27-2024 End: 05-27-2024 Patient encounter procedure Yeyo ROWE [facility] Start: 05-07-2024 End: 05-07-2024 Patient encounter procedure Teresa Lynch DO Work Phone: [facility] [place] Work Phone: Start: 04-24-2024 End: 04-24-2024 ambulatory Kait Dan MD Work Phone: [facility] Work Phone: Start: 04-24-2024 End: 04-24-2024 Patient encounter procedure Kait Dan MD Work Phone: [facility] Work Phone: Start: 04-23-2024 Non-patient / Non-visit Kait Dan MD Work Phone: [facility] Work Phone: Start: 04-23-2024 End: 04-23-2024 Admission to same day surgery center Kait Dan MD Work Phone: [facility] Work Phone: Start: 04-23-2024 End: 04-23-2024 ambulatory Kait Dan MD Work Phone: [facility] Work Phone: Start: 04-19-2024 Non-patient / Non-visit Kait Dan MD Work Phone: [facility] [place] Work Phone: Start: 04-04-2024 End: 04-04-2024 ambulatory MD Kait Dan Work Phone: [facility] Work Phone: Start: 04-04-2024 End: 04-04-2024 Patient encounter procedure MD Kait Dan Work Phone: [facility] [place] Work Phone: Start: 03-29-2024 Non-patient / Non-visit MD Jeremi Dan Work Phone: [facility] [place] Work Phone: Start: 03-22-2024 End: 03-22-2024 Telephone encounter Moncho Jaime Call Mal blum Comment on above: Blood Sugar Problem (High blood sugars) Start: 03-21-2024 End: 03-21-2024 ambulatory MD Kait Dan Work Phone: [facility] Work Phone: Comment on above: History of right bel ow knee amputation (CMS-HCC) (Primary Dx) Start: 03-21-2024 End: 03-21-2024 Patient encounter procedure MD Kait Dan Work Phone: [facility] Work Phone: Start: 03-21-2024 End: 03-21-2024 MD Kait Dan Work Phone: [facility] Work Phone: Start: 03-19-2024 End: 03-19-2024 ambulatory Guero Tam DO Work Phone: [facility] Internal Medicine - Family Medicine Comment on above: Diabetic polyneuropa thy associated with type 2 diabetes mellitus ([facility]) (Primary Dx); Encounter for orthopedic aftercare following surgical amputation; Other abnormalities of gait and mobility; Restless leg syndrome Start: 03-15-2024 End: 03-15-2024 ambulatory Guero Tam DO Work Phone: [facility] Internal Medicine - Family Medicine Comment on above: Diabetic polyneuropa thy associated with type 2 diabetes mellitus (CMS-HCC) (Primary Dx); Disorientation; Other abnormalities of gait and mobility; Status post partial amputation of right foot ([facility]-HCC); Atherosclerosis of [place] coronary artery of [place] heart without angina pectoris; Atrial fibrillation ([facility]); Primary hypertension Start: 03-15-2024 End: 03-15-2024 Telephone encounter Nancy Kim [facility] Start: 03-12-2024 ambulatory [facility] Start: 03-10-2024 Non-patient / Non-visit MD Jeremi Dan Work Phone: [facility] Work Phone: Start: 03-10-2024 MD Kait richmond Work Phone: [facility] Work Phone: Start: 03-09-2024 Non-patient / Non-visit MD Jeremi Dan Work Phone: [facility] Work Phone: Start: 03-09-2024 MD Kait richmond Work Phone: [facility] Work Phone: Start: 03-08-2024 End: 03-13-2024 Evaluation and management of inpatient MD Kait Dan Work Phone: [facility] Work Phone: Start: 03-08-2024 End: 03-13-2024 MD Kait Dan Work Phone: [facility] [place] [facility] Work Phone: Start: 03-08-2024 End: 03-10-2024 Emergency department patient visit [facility] Start: 03-05-2024 Non-patient / Non-visit MD Jeremi Dan Work Phone: [facility] Work Phone: Start: 03-05-2024 MD Kait richmond Work Phone: [facility] Work Phone: Start: 03-04-2024 End: 03-06-2024 Evaluation and management of inpatient MD Kait Dan Work Phone: [facility] [place] [facility] Work Phone: Start: 03-04-2024 End: 03-06-2024 MD Kait Dan Work Phone: [facility] [place] [facility] Work Phone: Start: 03-03-2024 Evaluation and management of inpatient MD Kait Dan Work Phone: [facility] [place] [facility] Work Phone: Start: 03-03-2024 observation encounter MD Vikas Dan Work Phone: [facility] Work Phone: Start: 02-29-2024 End: 02-29-2024 Postop follow up visit related to original px Mike Montes MD Work Phone: [facility] Comment on above: PAD (peripheral iliana ry disease) ([facility]) (Primary Dx) Start: 02-28-2024 End: 02-28-2024 ambulatory [facility]ero Tam [facility] Comment on above: Encounter for orthop edic aftercare following surgical amputation (Primary Dx); Cigarette smoker; Diabetic polyneuropathy associated with type 2 diabetes mellitus ([facility]); Other abnormalities of gait and mobility; Muscle spasm Start: 02-23-2024 End: 02-28-2024 ambulatory Guero Tam DO Work Phone: [facility] - [facility] Comment on above: Encounter for orthop edic aftercare following surgical amputation (Primary Dx); Other abnormalities of gait and mobility; BPH with obstruction/lower urinary tract symptoms; Diabetic polyneuropathy associated with type 2 diabetes mellitus ([facility]); Atherosclerosis of [place] coronary artery of [place] heart without angina pectoris; Heart failure, unspecified HF chronicity, unspecified heart failure type ([facility]); Primary hypertension; Peripheral arterial disease ([facility]); Chronic obstructive pulmonary disease, unspecified COPD type ([facility]); Gastroesophageal reflux disease, unspecified whether esophagitis present; Muscle weakness (generalized) Start: 02-12-2024 End: 02-21-2024 Evaluation and management of inpatient MD Mike Montes Facility:[facility] Start: 02-12-2024 ambulatory Yeyo Ley ty:[facility] Start: 02-12-2024 ambulatory Mike Ley ty:[facility] Start: 02-12-2024 End: 02-21-2024 Evaluation and management of inpatient Mike Montes [facility] Start: 02-08-2024 Non-patient / Non-visit MD Jeremi Dan Work Phone: [facility] Work Phone: Start: 02-08-2024 MD Kait richmond Work Phone: [facility] Work Phone: Start: 02-01-2024 End: 02-01-2024 Clinisync Result Encounter Mike Montes MD Work Phone: [facility] External [facility] Unsolicited Start: 02-01-2024 End: 02-01-2024 Clinisync Result Encounter Mike Montes MD Work Phone: [facility] External [facility] Unsolicited Start: 02-01-2024 Non-patient / Non-visit MD Jeremi Dan Work Phone: [facility] Work Phone: Start: 02-01-2024 MD Kait richmond Work Phone: [facility] [employer] [facility] [employer] Work Phone: Start: 01-24-2024 Non-patient / Non-visit MD Jeremi Dan Work Phone: [facility] [place] Work Phone: Start: 01-24-2024 MD Kait richmond Work Phone: [facility] [place] Work Phone: Start: 01-18-2024 End: 01-18-2024 Office outpatient visit 25 minutes Mike Montes MD [facility]: [facility] Comment on above: 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 (CMS-HCC) (Primary Dx); Cigarette smoker Start: 01-17-2024 End: 01-17-2024 Subsequent hospital visit by physician Fabiana Allred Echo/Vasc Room 2 [facility] Comment on above: Shortness of breath Start: 01-08-2024 End: 01-08-2024 ambulatory MD Mike Montes Facility:[facility] Start: 01-03-2024 Non-patient / Non-visit MD Jeremi Dan Work Phone: [facility] [place] Work Phone: Start: 01-03-2024 MD Kait richmond Work Phone: [facility] [place] Work Phone: Start: 01-01-2024 End: 01-01-2024 ambulatory [facility] Ambulatory Start: 01-01-2024 End: 01-01-2024 Encounter for preprocedural cardiovascular examination [facility] Ambulatory Start: 12-31-2023 Non-patient / Non-visit MD Jeremi Dan Work Phone: [facility] Work Phone: Start: 12-31-2023 MD Kait richmond Work Phone: [facility] Work Phone: Start: 12-30-2023 Non-patient / Non-visit MD Jeremi Dan Work Phone: [facility] [employer] [facility] Work Phone: Start: 12-30-2023 MD Kait richmond Work Phone: [facility] [employer] [facility] Work Phone: Start: 12-28-2023 Non-patient / Non-visit MD Jeremi Dan Work Phone: [facility] [place] Work Phone: Start: 12-28-2023 MD Kait richmond Work Phone: [facility] [place] Work Phone: Start: 12-25-2023 Non-patient / Non-visit MD Jeremi Dan Work Phone: [facility] [place] Work Phone: Start: 12-25-2023 MD Kait richmond Work Phone: [facility] [place] Work Phone: Start: 12-23-2023 Non-patient / Non-visit MD Jeremi Dan Work Phone: [facility] Work Phone: Start: 12-23-2023 MD Kait richmond Work Phone: [facility] Work Phone: Start: 12-22-2023 Non-patient / Non-visit MD Jeremi Dan Work Phone: [facility] Work Phone: Start: 12-22-2023 MD Kait richmond Work Phone: [facility] Work Phone: Start: 12-21-2023 Non-patient / Non-visit MD Jeremi Dan Work Phone: [facility] Work Phone: Start: 12-21-2023 MD Kait richmond Work Phone: [facility] [employer] [facility] Work Phone: Start: 12-21-2023 End: 12-21-2023 Office outpatient visit 25 minutes Mike Montes MD Work Phone: [facility] Vascular Surgery [facility] Comment on above: 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 (CMS-HCC) (Primary Dx) Start: 12-21-2023 End: 12-21-2023 ambulatory MIKE MONTES [facility] Start: 12-15-2023 End: 12-15-2023 ambulatory DO Teresa Lynch Work Phone: [facility] Work Phone: Start: 12-15-2023 End: 12-15-2023 Departed Referred DO Teresa Lynch Work Phone: [facility] [place] [facility] Start: 12-15-2023 End: 12-15-2023 MD Kait Dan Work Phone: [facility] [place] [facility] Start: 12-10-2023 Non-patient / Non-visit MD Jeremi aDn Work Phone: [facility] Work Phone: Start: 12-10-2023 MD Kait richmond Work Phone: [facility] Work Phone: Start: 12-10-2023 Non-patient / Non-visit DO Phillip gorge Fraustos Work Phone: [facility] [employer] Work Phone: Start: 12-10-2023 MD Kait richmond Work Phone: [facility] [employer] Work Phone: Start: 12-09-2023 Non-patient / Non-visit DO Phillip gorge Lynch Work Phone: [facility] [employer] Work Phone: Start: 12-09-2023 MD Kait richmond Work Phone: [facility] [employer] Work Phone: Start: 11-30-2023 End: 11-30-2023 Postop follow up visit related to original px Mike Montes MD Work Phone: [facility] Comment on above: 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 (CMS-HCC) (Primary Dx); Cigarette smoker motivated to quit Start: 11-30-2023 End: 11-30-2023 ambulatory MIKE MONTES [facility] Comment on above: 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 (CMS-HCC) (Primary Dx); 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 (CMS-HCC); Delayed surgical wound healing of foot amputation stump (CMS-HCC); Other abnormalities of gait and mobility Start: 11-26-2023 Non-patient / Non-visit DO Phillip Lynch Work Phone: [facility] [employer] Work Phone: Start: 11-24-2023 End: 11-24-2023 ambulatory Guero Tam DO Work Phone: [facility] Comment on above: Status post partial amputation of right foot (CMS-HCC) (Primary Dx); Other abnormalities of gait and mobility; Leg edema; Primary hypertension; Hypotension due to drugs; 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); Diabetic polyneuropathy associated with type 2 diabetes mellitus (CMS-HCC) Start: 11-23-2023 End: 11-23-2023 ambulatory [facility] Start: 11-15-2023 End: 11-15-2023 [facility] Start: 11-15-2023 Non-patient / Non-visit DO Phillip Lynch Work Phone: [facility] [employer] Work Phone: Start: 11-14-2023 End: 11-14-2023 Evaluation and management of inpatient [facility] Start: 11-10-2023 End: 11-10-2023 Telephone encounter Franny Yu MD Work Phone: [facility] Start: 11-07-2023 End: 11-14-2023 Evaluation and management of inpatient [facility] Start: 11-07-2023 End: 11-19-2023 ambulatory Guero Tam DO Work Phone: [facility] Comment on above: Peripheral arterial disease (CMS-HCC) (Primary Dx); Delayed surgical wound healing of foot amputation stump ([facility]-HCC); Other abnormalities of gait and mobility; Status post partial amputation of right foot (CMS-HCC); Pressure ulcer of right ankle, stage 3 (CMS-HCC); Type 2 diabetes mellitus with stage 4 chronic kidney disease, without long-term current use of insulin (CMS-HCC) Start: 11-07-2023 End: 11-14-2023 Evaluation and management of inpatient MIKE MONTES [facility] Start: 11-03-2023 End: 11-10-2023 ambulatory Guero Ines Anel BRICENO Work Phone: [facility] Comment on above: Status post partial amputation of right foot (CMS-HCC) (Primary Dx); Pressure ulcer of right ankle, stage 3 (CMS-HCC); Other abnormalities of gait and mobility; Delayed surgical wound healing of foot amputation stump (CMS-HCC) Start: 10-25-2023 End: 10-30-2023 ambulatory Guero Ines Anel BRICENO Work Phone: [facility] Comment on above: Status post partial amputation of right foot (CMS-HCC) (Primary Dx); Osteomyelitis of right foot, unspecified type (CMS-HCC); Muscle weakness (generalized); Other abnormalities of gait and mobility; Chronic obstructive pulmonary disease, unspecified COPD type (CMS-HCC); Peripheral arterial disease (CMS-HCC) Start: 10-24-2023 Preoperative state [address] Start: 10-24-2023 Encounter for preprocedural cardiovascular examination [facility] Start: 10-24-2023 End: 10-24-2023 Office outpatient visit 25 minutes Raulito Inman MD Work Phone: [facility] Comment on above: History of PTCA; Hyperlipidemia, unspecified hyperlipidemia type; Encounter for pre-operative cardiovascular clearance; Former smoker Start: 10-24-2023 End: 10-24-2023 Patient encounter status Raulito Inman MD Work Phone: [facility] Work Phone: Start: 10-23-2023 End: 10-23-2023 ambulatory MD Mike Montes Facility[facility] Start: 10-23-2023 End: 10-23-2023 Patient encounter procedure Mike Montes [facility] Start: 10-19-2023 End: 10-19-2023 ambulatory MD Mike Montes Facility:[facility] Start: 10-19-2023 End: 10-19-2023 Patient encounter procedure Mike Montes [facility] Start: 10-18-2023 End: 10-18-2023 Telephone encounter [facility] Start: 10-18-2023 End: 10-18-2023 Office outpatient new 45 minutes Mike Montes MD Work Phone: [facility] Comment on above: 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 ([facility]-HCC) (Primary Dx); Poor circulation; Heavy tobacco smoker >10 cigarettes per day Start: 10-18-2023 End: 10-18-2023 ambulatory [facility] Start: 10-17-2023 End: 10-22-2023 ambulatory Guero Tam DO Work Phone: [facility] Comment on above: Status post partial amputation of right foot ([facility]-HCC) (Primary Dx); 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); Type 2 diabetes mellitus with stage 4 chronic kidney disease, without long-term current use of insulin ([facility]-HCC) Start: 10-10-2023 End: 10-10-2023 ambulatory Guero Tam [...] disease, without long-term current use of insulin ([facility]) Start: 10-06-2023 End: 10-07-2023 ambulatory Guero Tam DO Work Phone: [facility] Comment on above: Abscess of right jono t (Primary Dx); Status post partial amputation of right foot ([facility]); Type 2 diabetes mellitus with stage 4 chronic kidney disease, without long-term current use of insulin ([facility]); Atherosclerosis of [place] coronary artery of [place] heart without angina pectoris; Bacterial sepsis ([facility]); Other acute osteomyelitis of right foot ([facility]); Chronic obstructive pulmonary disease, unspecified COPD type ([facility]); Cigarette smoker; BPH with obstruction/lower urinary tract symptoms; Gastroesophageal reflux disease, unspecified whether esophagitis present; Restless leg syndrome; Hyperlipidemia, unspecified hyperlipidemia type; Carpal tunnel syndrome, unspecified laterality; Heart failure, unspecified HF chronicity, unspecified heart failure type ([facility]) Start: 10-06-2023 Non-patient / Non-visit DO Phillip an Kuns Work Phone: [facility] Work Phone: Start: 10-05-2023 End: 10-05-2023 ambulatory DO Teresa Lynch Work Phone: [facility] Work Phone: Start: 10-05-2023 End: 10-05-2023 Departed Referred DO Teresa Lynch Work Phone: [facility] [place] [facility] Start: 10-05-2023 Non-patient / Non-visit DO Phillip an Kuns Work Phone: [facility] Work Phone: Start: 10-04-2023 Non-patient / Non-visit DO Phillip an Kuns Work Phone: [facility] Work Phone: Start: 10-03-2023 Non-patient / Non-visit DO Phillip an Kuns Work Phone: [facility] [employer] [facility] [employer] Work Phone: Start: 10-02-2023 End: 10-02-2023 ambulatory DO Teresa Fraustos Work Phone: [facility] Work Phone: Start: 10-02-2023 End: 10-02-2023 Departed Referred DO Teresa Fraustos Work Phone: [facility] Start: 10-02-2023 Non-patient / Non-visit DO Phillip an Kuns Work Phone: [facility] [employer] Work Phone: Start: 10-01-2023 Non-patient / Non-visit DO Phillip an Kuns Work Phone: [facility] [employer] Work Phone: Start: 09-30-2023 Non-patient / Non-visit DO Phillip an Kuns Work Phone: [facility] [facility] [employer] Work Phone: Start: 09-27-2023 Non-patient / Non-visit DO Phillip an Kuns Work Phone: [facility] [employer] Work Phone: Start: 09-21-2023 End: 09-21-2023 ambulatory DO Teresa Fraustojoe Work Phone: [facility] Work Phone: Start: 09-21-2023 End: 09-21-2023 Departed Referred DO Teresa Fraustos Work Phone: [facility] [place] [facility] Start: 09-21-2023 Non-patient / Non-visit DO Phillip an Kuns Work Phone: [facility] [employer] [facility] [employer] Work Phone: Start: 09-18-2023 Non-patient / Non-visit DO Phillip an Kuns Work Phone: [facility] [employer] [facility] [employer] Work Phone: Start: 09-08-2023 End: 09-08-2023 ambulatory Yeyo ROWE Facility:[facility] Start: 09-08-2023 End: 09-08-2023 Patient encounter procedure Yeyo Blum [facility] Start: 08-10-2023 Non-patient / Non-visit DO Phillip an Kuns Work Phone: [facility] [employer] [facility] [employer] Work Phone: Start: 08-08-2023 Non-patient / Non-visit DO Phillip an Kuns Work Phone: [facility] [employer] [facility] [employer] Work Phone: Start: 08-07-2023 Non-patient / Non-visit DO Phillip an Kuns Work Phone: [facility] [employer] [facility] [employer] Work Phone: Start: 08-06-2023 Non-patient / Non-visit DO Phillip an Kuns Work Phone: [facility] [employer] [facility] [employer] Work Phone: Start: 08-05-2023 Non-patient / Non-visit DO Phillip an Kuns Work Phone: [facility] [employer] [facility] Work Phone: Start: 08-04-2023 Non-patient / Non-visit DO Phillip an Kuns Work Phone: [facility] [employer] [facility] Work Phone: Start: 08-03-2023 Non-patient / Non-visit DO Phillip an Kuns Work Phone: [facility] [facility] [employer] [facility] Work Phone: Start: 07-31-2023 Registered Recurring DO Teresa Lynch Work Phone: [facility]-Infusion Therapy - O/P Work Phone: Start: 07-26-2023 Non-patient / Non-visit DO Phillip Lynch Work Phone: [facility] Work Phone: Start: 07-12-2023 End: 07-12-2023 Emergency department patient visit DO Teresa Lynch Work Phone: [facility]-Emergency Room Work Phone: Start: 07-07-2023 End: 07-07-2023 ambulatory Teresa Lynch Other [employer] Other Start: 07-07-2023 Telephone encounter [facility] Start: 07-03-2023 End: 07-03-2023 ambulatory Yeyo ROWE Facility:[facility] [place] Start: 06-26-2023 End: 06-26-2023 ambulatory Teresa Lynch Other [employer] Other Start: 06-26-2023 Telephone encounter Teresa Lynch [facility] [place] Start: 06-02-2023 End: 06-02-2023 ambulatory Yeyo ROWE Facility:[facility] [place] Start: 06-02-2023 End: 06-02-2023 Patient encounter procedure Yeyo ROWE [facility] [place] Start: 05-16-2023 End: 05-16-2023 ambulatory Teresa Lynch Other [employer] Other Start: 05-16-2023 Telephone encounter Teresa Lynch [facility] [place] Start: 05-03-2023 End: 05-03-2023 ambulatory Yeyo ROWE Facility:[facility] [place] Start: 05-03-2023 End: 05-03-2023 Patient encounter procedure Yeyo ROWE [facility] [place] Start: 04-28-2023 End: 04-28-2023 ambulatory Teresa Lynch Other [employer] Other Start: 04-28-2023 Telephone encounter Teresa Lynch [facility] [place] Start: 04-18-2023 End: 04-18-2023 ambulatory Yeyoneel ROWE Facility:[facility] [place] Start: 04-18-2023 End: 04-18-2023 Patient encounter procedure Yeyo ROWE [facility] Start: 04-17-2023 ambulatory Yeyo R ROWE Facili ty:[facility] [place] Start: 04-13-2023 End: 04-13-2023 ambulatory Yeyo ROWE Facility:[id number] Start: 04-11-2023 End: 04-11-2023 ambulatory Teresa Lynch Other [employer] Other Start: 04-11-2023 Telephone encounter Teresa Lynch [facility] [place] Start: 04-06-2023 End: 04-06-2023 ambulatory Teresa Lynch Other [employer] Other Start: 04-06-2023 Encounter for other preprocedural examination Teresa Lynch [facility] [place] Start: 04-06-2023 Office outpatient vi sit 25 minutes Teresa Lynch [facility] [place] Start: 03-28-2023 End: 03-28-2023 ambulatory Teresa Lynch Other [employer] Other Start: 03-28-2023 Telephone encounter Teresa Lynch [facility] [place] Start: 03-20-2023 ambulatory [facility] [place] Start: 03-15-2023 End: 03-15-2023 ambulatory Yeyo ROWE [facility] [employer] Other Start: 03-15-2023 Office outpatient vi sit 25 minutes Teresa Lynch [facility] Start: 03-10-2023 End: 03-10-2023 ambulatory Teresa Lynch Other [facility] [employer] Other Start: 03-10-2023 Telephone encounter Teresa Lynch [facility] Start: 02-15-2023 Office outpatient vi sit 15 minutes Teresa Lynch Work Phone: [facility] 250 DO Work Phone: Start: 02-15-2023 ambulatory Dolores Pickard Facility:[id number] Start: 02-14-2023 End: 02-14-2023 Patient encounter procedure Yeyo ROWE [facility] Start: 02-08-2023 End: 02-08-2023 Patient encounter procedure Yeyo ROWE [facility] Start: 01-30-2023 End: 01-30-2023 Patient encounter procedure Yeyo ROWE [facility] [place] Start: 01-25-[address] Teresa Lynch Facility:[id number] Start: 01-17-2023 End: 01-17-2023 ambulatory Teresa Lynch Other [facility] [employer] Other Start: 01-17-2023 Telephone encounter Teresa Lynch [facility] Start: 01-11-2023 Office outpatient vi sit 25 minutes Teresa Lynch Work Phone: [facility] 600 DO Work Phone: Start: 01-11-2023 ambulatory Dolores Pickard Facility:[id number] Start: 12-28-2022 End: 12-28-2022 Patient encounter procedure Yeyo R ROWE [facility] [place] Start: 12-01-2022 End: 12-01-2022 ambulatory Teresa Lynch Other [employer] Other Start: 12-01-2022 Office outpatient vi sit 25 minutes Teresa Lynch [facility] Start: 11-23-2022 End: 11-23-2022 Patient encounter procedure Yeyo R ROWE [facility] [place] Start: 10-07-2022 End: 10-07-2022 ambulatory Teresa Lynch Other [employer] Other Start: 10-07-2022 Telephone encounter Teresa Lynch [facility] Start: 09-27-2022 End: 09-27-2022 ambulatory DO Teresa Lynch Work Phone: [facility] Work Phone: Start: 09-27-2022 End: 09-27-2022 Patient encounter procedure DO Teresa Lynch Work Phone: [facility] [place] Work Phone: Start: 09-21-2022 End: 09-21-2022 ambulatory Teresa Lynch Other [employer] Other Start: 09-21-2022 Telephone encounter Teresa Lnych [facility] Start: 09-14-2022 End: 09-14-2022 ambulatory Teresa Lynch Other [employer] Other Start: 09-14-2022 Telephone encounter Teresa Rory [facility] [place] Start: 09-02-2022 End: 09-02-2022 Patient encounter procedure DO Teresa Lynch Work Phone: [facility]-MRI Main [place] Work Phone: Start: 08-25-2022 End: 08-25-2022 ambulatory Doris Barnes Other [employer] Other Start: 08-25-2022 Telephone encounter Doris Barnes [facility] [employer] Start: 08-22-2022 End: 08-22-2022 ambulatory Teresagorge Lynch Other [employer] Other Start: 08-22-2022 Telephone encounter Teresa Lynch [facility] [place] Start: 08-05-2022 End: 08-05-2022 ambulatory Teresa Lynch Other [employer] Other Start: 08-05-2022 Telephone encounter Teresa Rory [facility] [place] Start: 08-04-2022 End: 08-04-2022 ambulatory Teresa Fraustojoe Other [employer] Other Start: 08-04-2022 Telephone encounter Teresa Lynch [facility] [place] Start: 07-28-2022 End: 07-28-2022 ambulatory Teresa Lynch Other [employer] Other Start: 07-28-2022 Telephone encounter Teresa Lynch [facility] [employer] Start: 07-25-2022 End: 07-25-2022 ambulatory Teresa Lynch Other [employer] Other Start: 07-25-2022 Nursing evaluation o f patient and report Teresa Lynch [facility] [place] Start: 07-19-2022 End: 07-19-2022 ambulatory Teresa Lynch Other [employer] Other Start: 07-19-2022 Telephone encounter Teresa Lynch [facility] [place] Start: 07-15-2022 End: 07-15-2022 ambulatory Teresa Lynch Other [employer] Other Start: 07-15-2022 Telephone encounter [facility] Start: 07-13-2022 End: 07-13-2022 ambulatory Teresa Lynch Other [employer] Other Start: 07-13-2022 Nursing evaluation o f patient and report Teresa Lynch [facility] Start: 07-12-[address] [facility] Start: 07-05-2022 End: 07-05-2022 ambulatory Teresa Lynch Other [employer] Other Start: 07-05-2022 Telephone encounter Teresa Lynch [facility] Start: 07-05-2022 Rx Renewal Teresa Lynch Work Phone: [facility] 250 DO Work Phone: Start: 07-04-2022 End: 07-04-2022 ambulatory Teresa Lynch Other [employer] Other Start: 07-04-2022 Office outpatient vi sit 25 minutes Teresa Lynch [facility] Start: 06-30-2022 End: 06-30-2022 ambulatory Teresa Lynch Other [employer] Other Start: 06-30-2022 Telephone encounter Teresa [facility] Start: 05-25-2022 End: 05-25-2022 ambulatory Teresa Lynch Other [employer] Other Start: 05-25-2022 Telephone encounter Teresa Lynch [facility] [place] Start: 04-25-2022 End: 04-25-2022 ambulatory Teresa Lynch Other [employer] Other Start: 04-25-2022 Telephone encounter Teresa Lynch [facility] [place] Start: 04-19-2022 End: 04-19-2022 ambulatory Teresa Lynch Other [employer] Other Start: 04-19-2022 Telephone encounter Teresa Lynch [facility] [place] Start: 03-22-2022 End: 03-22-2022 ambulatory Teresa Lynch Other [employer] Other Start: 03-22-2022 Telephone encounter Teresa Lynch [facility] [place] Start: 03-01-2022 End: 03-01-2022 ambulatory Teresa Lynch Other [employer] Other Start: 03-01-2022 Telephone encounter Teresa Lynch [facility] [place] Start: 02-18-2022 End: 02-18-2022 ambulatory Teresa Lynch Other [employer] Other Start: 02-18-2022 Telephone encounter Teresa Lynch [facility] [place] Start: 02-15-2022 End: 02-15-2022 ambulatory Verona Whaley Other [employer] Other Start: 02-15-2022 Office outpatient vi sit 25 minutes Teresa Lynch [facility] [place] Start: 02-15-2022 Telephone encounter Verona Whaley [facility] Start: 01-21-2022 End: 01-21-2022 ambulatory Teresa Rory Other [employer] Other Start: 01-21-2022 Telephone encounter Teresa Lynch [facility] [place] Start: 01-19-2022 End: 01-19-2022 ambulatory Teresa Lynch Other [employer] Other Start: 01-19-2022 Telephone encounter Teresa Lynch [facility] [place] Start: 01-13-2022 End: 01-13-2022 ambulatory Teresa Lynch Other [employer] Other Start: 01-13-2022 Telephone encounter Teresa Lynch [facility] [place] Start: 12-23-2021 End: 12-23-2021 ambulatory Teresagorge Lynch Other [employer] Other Start: 12-23-2021 Telephone encounter Teresa Lynch [facility] [place] Start: 11-24-2021 End: 11-24-2021 ambulatory Teresa Lynch Other [employer] Other Start: 11-24-2021 Telephone encounter [facility] Start: 11-03-2021 Rx Renewal Teresa Lynch Work Phone: [facility] 250 DO Work Phone: Start: 10-26-2021 Office outpatient vi sit 25 minutes Teresa Lynch Work Phone: [facility] 250 DO Work Phone: Start: 10-25-2021 End: 10-25-2021 ambulatory Teresa Lynch Other [employer] Other Start: 10-25-2021 Telephone encounter Teresa Lynch [facility] [place] Start: 10-19-2021 End: 10-19-2021 ambulatory Aziz Bakhous Other [employer] Other Start: 10-19-2021 Office outpatient vi sit 25 minutes Aziz Amelies [facility] Start: 10-18-2021 End: 10-18-2021 ambulatory Azjuan Kinseys Other [employer] Other Start: 10-18-2021 Telephone encounter Amina Kinseys [facility] Start: 10-12-2021 End: 10-13-2021 ambulatory DUARTE HENRY . Facility: Start: 10-08-2021 End: 10-08-2021 ambulatory Teresa Lynch Other [employer] Other Start: 10-08-2021 Telephone encounter Teresa Lynch [facility] [place] Start: 09-22-2021 End: 09-22-2021 ambulatory Teresa Lynch Other [employer] Other Start: 09-22-2021 Telephone encounter Teresa Lynch [facility] [place] Start: 09-21-2021 End: 09-21-2021 ambulatory Teresa Lynch Other [employer] Other Start: 09-21-2021 Telephone encounter Teresa Lynch [facility] [place] Start: 08-09-2021 End: 08-09-2021 ambulatory Teresa Lynch Other [employer] Other Start: 08-09-2021 Telephone encounter Teresa Lynch [facility] [place] Start: 08-02-2021 End: 08-02-2021 ambulatory Teresa Lynch Other [employer] Other Start: 08-02-2021 Telephone encounter Teresa Lynch [facility] [place] Start: 07-27-2021 End: 07-27-2021 ambulatory Teresa Lynch Other [employer] Other Start: 07-27-2021 Office outpatient vi sit 25 minutes Teresa Lynch [facility] Start: 06-23-2021 End: 06-23-2021 ambulatory Teresagorge Lynch Other [employer] Other Start: 06-23-2021 Telephone encounter Teresa Lynch [facility] Start: 06-22-2021 Rx Renewal Teresa Lynch Work Phone: [facility] 250 DO Work Phone: Start: 05-03-2021 End: 05-03-2021 ambulatory Teresagorge Lynch Other [facility] [employer] Other Start: 05-03-2021 Telephone encounter Teresa Lynch [facility] Procedures Date Procedure Procedure Detail Performing Clinician Start: 02-05-2025 Cv strs tst xers&/or rx cont ecg trcg only Pascale Arnold MD Work Phone: Start: 10-10-2024 Plain chest X-ray Teresagorge Lynch DO Work Phone: Start: 08-11-2024 CT angiography of head Teresa Lynch DO Work Phone: Start: 08-11-2024 CT angiography of neck vessels Teresagorge diaz DO Work Phone: Start: 08-11-2024 CT of head without contrast Teresa Lynch D O Work Phone: Start: 08-11-2024 Plain chest X-ray Teresa Lynch DO Work Phone: Start: 04-23-2024 Esophagogastroduodenoscopy Kait [...] use now? 1 Result Comment: PERF ORMED BY:[facility] [id number] [place] [id number] MEDICAL DIRECTORCLIFFORD LOBATO M.D. Start: 03-04-2024 X-ray [...] Status post partial amputation of right foot ([facility]) Guero Tam DO Work Phone: Start: 10-02-2023 [...] Lynch Work Phone: Start: 06-05-2006 Total colonoscopy eTresa Lynch Work Phone: Angiography Mike Montes Comment on above: RLE Angiogram with drug coated balloonin g Appendectomy Teresa Lynch Work Phone: Appendectomy Yeyo ROWE Bilateral Carpal Tunnel Surgery Yeyo ROWE Bilateral Eye Surgery 1 Jose Antonio ROWE Comment on above: bilateral cataracts with iol implants Bilateral Eye Surgery 2 Nena Montes Comment on above: bilateral cataracts with iol implants Cardiac catheterization Jose Angel Lynch Work Phone: cardiac stents Yeyo Diaz Cataract extraction and insertion of intraocular lens Yeyo ROWE Cataract surgery Teresa Guerra Jett joe Work Phone: Colonoscopy Yeyo ROWE Decompression of median nerve Teresa Lynch Work Phone: History of amputation of foot 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 ([facility]) Guero Chacon [employer] Work Phone: History of amputation of foot 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 ([facility]) Guero Chacon [employer] Work Phone: History of amputation of foot 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 ([facility]) Guero G [employer] Work Phone: History of amputation of foot 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 ([facility]) Guero Chacon [employer] Work Phone: History of amputation of foot 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 ([facility]) Guero Chacon [employer] Work Phone: History of amputation of foot 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 ([facility]) Guero Chacon [employer] Work Phone: History of amputation of foot 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 ([facility]) Guero Chacon [employer] Work Phone: History of percutane ous transluminal coronary angioplasty History of PTCA Teresa Lynch Work Phone: History of percutane ous transluminal coronary angioplasty History of PTCA Raulito Inman MD Work Phone: Procedure on back Teresa P González ramirez Work Phone: Comment on above: nerve ablation; Procedure on back Yeyo DOSHI Scrotum and testicle operation Teresa Guerra Rory Work Phone: Plan of Treatment Date Care Activity Detail Author Start: 08-05-2033 DTaP/Tdap/Td Vaccines (2 - Td or Tdap) DTaP/Tdap/Td Vaccines (2 - Td or Tdap) [facility] Start: 10-10-2025 Echocardiography Echocardiogram [facility] Start: 04-26-2025 Tobacco Counseling Tobacco Counseling [facility] Start: 03-15-2025 Adult BMI Screening Adult BMI Screening [facility] Start: 03-12-2025 End: 03-12-2025 Patient encounter procedure 03/12/2025 3:50 PM EDT Office Visit [facility] [address] [facility] [address] [place] [phone] Bernard De La Cruz MD [address] [facility] [address] [place] [address] [facility] Start: 02-28-2025 Adult BMI Screening Adult BMI Screening [facility] Start: 02-28-2025 Tobacco Screening Tobacco Screening [facility] Start: 02-27-2025 Adult BMI Screening Adult BMI Screening [facility] Start: 02-03-2025 COVID-19 Vaccine ( season) COVID-19 Vaccine ( season) [facility] Start: 02-03-2025 Influenza vaccination [facility] Start: 01-17-2025 Adult BMI Screening Adult BMI Screening [facility] Start: 01-17-2025 Tobacco Screening Tobacco Screening [facility] Start: 12-20-2024 Adult BMI Screening Adult BMI Screening [facility] Start: 12-20-2024 Tobacco Screening Tobacco Screening [facility] Start: 11-29-2024 Adult BMI Screening Adult BMI Screening [facility] Start: 11-29-2024 Tobacco Screening Tobacco Screening [facility] Start: 11-13-2024 Adult BMI Screening Adult BMI Screening [facility] Start: 11-09-2024 Adult BMI Screening Adult BMI Screening [facility] Start: 11-09-2024 Tobacco Screening Tobacco Screening [facility] Start: 11-07-2024 Tobacco Screening Tobacco Screening [facility] Start: 11-06-2024 Depression Screening Depression Screening [facility] Start: 11-05-2024 Patient referral [facility] Work Phone: Start: 10-24-2024 Adult BMI Screening Adult BMI Screening [facility] Start: 10-21-2024 End: 10-21-2024 Patient encounter procedure 10/21/2024 8:00 AM EDT Office Visit [facility] [address] [place] [address] Dolores Pickard, CONTRACTS ADMINISTRATOR-HEAVY MOBILE EQUIPMENT REPAIRER [address] [place] [address] [facility] Start: 10-17-2024 Adult BMI Screening Adult BMI Screening [facility] Start: 10-17-2024 Tobacco Screening Tobacco Screening [facility] Start: 10-13-2024 [facility] Start: 10-12-2024 [facility] Start: 10-11-2024 End: 10-11-2024 [facility] Start: 10-10-2024 End: 10-10-2024 [facility] Start: 10-10-2024 Hospital admission [facility] Start: 10-10-2024 Referral to malt house supervisor [facility] Start: 08-30-2024 Patient referral [facility] Work Phone: Start: 08-13-2024 [facility] Start: 08-12-2024 [facility] Start: 08-11-2024 End: 08-11-2024 [facility] Start: 08-11-2024 Physical therapy procedure [facility] Start: 08-11-2024 Referral to occupational therapist [facility] Start: 08-11-2024 Hospital admission [facility] Start: 08-11-2024 Referral to metal trim erector [facility] Start: 08-11-2024 CT angiography of head [facility] Start: 08-11-2024 CT angiography of neck vessels [facility] Start: 08-11-2024 CT Head WO contrast [facility] Start: 08-11-2024 CT of head without contrast CT head stroke alert wo con [facility] Start: 08-11-2024 Plain chest X-ray XR chest 1V portable [facility] Start: 08-11-2024 XR Chest Single view [facility] Start: 08-11-2024 End: 08-11-2024 [facility] Start: 04-23-2024 [facility] Start: 03-13-2024 [facility] Start: 03-11-2024 End: 03-11-2024 Patient encounter procedure 03/11/2024 8:40 AM EDT Office Visit [place] [address] [place] [phone] Bernard De La Cruz MD [address] [place] [address] [facility] Start: 03-10-2024 Referral to billboard erector helper [facility] Start: 03-09-2024 Comprehensive metabolic 2000 panel - Serum or Plasma [facility] Start: 03-09-2024 End: 03-09-2024 [facility] Start: 03-08-2024 Referral to psychiatrist [facility] Start: 03-08-2024 Referral to neurologist [facility] Start: 03-08-2024 End: 03-08-2024 [facility] Start: 03-08-2024 Hospital admission [facility] Start: 03-08-2024 Plain chest X-ray [facility] Start: 03-08-2024 Telemedicine consultation with patient [facility] Start: 03-08-2024 Blood culture for bacteria, including anaerobic screen [facility] Start: 03-06-2024 [facility] Start: 03-05-2024 Referral to billboard erector helper [facility] Start: 03-04-2024 Referral to billboard erector helper [facility] Start: 03-03-2024 Referral to neurologist [facility] Start: 03-03-2024 [facility] Start: 03-03-2024 Hospital admission [facility] Start: 02-29-2024 End: 02-29-2024 Patient encounter procedure 02/29/2024 9:30 AM EDT Office Visit [facility] [address] [place] [phone] Mike Montes MD [address], [facility] [address] [place] [address] [facility] Start: 02-04-2024 COVID-19 Vaccine ( season) COVID-19 Vaccine ( season) [facility] Start: 02-04-2024 COVID-19 Vaccine ( season) COVID-19 Vaccine () [facility] Start: 02-04-2024 Influenza vaccination [facility] Start: 12-21-2023 End: 12-21-2023 Patient encounter procedure 12/21/2023 8:40 AM EDT Office Visit [facility] [address] [place] [address] Mike Montes MD [address], [address] [place] [address] [facility] Start: 11-30-2023 End: 11-30-2023 Patient encounter procedure 11/30/2023 8:50 AM EDT Office Visit [facility] [address] [place] [address] Mike Montes MD [address], [address] [address] [facility] Start: 11-23-2023 End: 11-23-2023 Patient encounter procedure [facility] Start: 11-23-2023 End: 11-23-2023 Patient encounter procedure 11/23/2023 9:40 AM EDT Office Visit [facility] [address] Mike Montes MD [address], [address] [address] [facility] Start: 11-15-2023 FUV, Provider: Raulito Inman, Status: Pen, Time: 2:40 PM FUV, Provider: Raulito Inman, Status: Pen, Time: 2:40 PM [place] [address] DO Work Phone: Start: 11-07-2023 End: 11-07-2023 Admission to same day surgery center 11/07/2023 3:00 PM EDT - 11/07/2023 4:00 PM EDT Surgery [facility] [address] [place] [phone] Mike Montes MD [address], [address] [address] Vascular Invasive Right lower extremity angiogram with intervention [facility] Comment on above: Vascular Invasive Right lower extremity angiogram with intervention Start: 11-07-2023 Subsequent hospital visit by physician 11/07/2023 3:00 PM EDT Hospital Encounter [facility] [address] [place] [address] Mike Montes MD [address], [address] [address] 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 ([facility] - [facility]iac [facility] Comment on above: Critical limb ischemia of right lower ex tremity with gangrene ([facility] Start: 10-18-2023 End: 10-17-2024 CTA Abdominal Aorta and Bilateral Runoff Vessels W contrast IV [facility] Poll Everywhere Comment on above: Expected: 10/18/2023, Expires: Start: 10-18-2023 End: 10-17-2024 US.doppler Extremity arteries - bilateral for physiologic artery study [employer] Work Phone: Comment on above: Expected: 10/18/2023, Expires: Start: 10-02-2023 Acid Fast Culture Acid Fast Culture [facility] Start: 09-30-2023 Blood Culture 1 Blood Culture 1 [facility] Start: 09-30-2023 Blood Culture 2 Blood Culture 2 [facility] Start: 09-30-2023 Wound Culture Wound Culture [facility] Start: 09-21-2023 Abscess Culture Abscess Culture [facility] Start: 08-10-2023 Acid Fast Culture Acid Fast Culture [facility] Start: 08-05-2023 Wound Culture Wound Culture [facility] Start: 07-12-2023 Duplex scan of lower limb veins US venous duplex LE BI [facility] Start: 07-12-2023 US Lower extremity vein - bilateral [facility] Start: 07-12-2023 Duplex scan veins of upper limb US venous duplex UE LT [facility] Start: 07-12-2023 US Upper extremity vein - left [facility] Start: 02-15-2023 FUV, Provider: Dolores Velazquez, Status: Pen, Time: 10:00 AM FUV, Provider: Dolores Velazquez, Status: Pen, Time: 10:[address] [facility] [address] DO Work Phone: Start: 02-03-2023 COVID-19 Vaccine () COVID-19 Vaccine () [facility] Start: 01-25-2023 STRESS NUC, Provider: CHALINO HHVI NUCLEAR 01,[id number], Status: Pen, Time: 8:30 AM STRESS NUC, Provider: CHALINO HHVI NUCLEAR 01,[id number], Status: Pen, Time: 8:30 AM -[facility] [address] DO Work Phone: Start: 07-12-2022 FUV, Provider: Raulito Inman, Status: Pen, Time: 9:20 AM FUV, Provider: Raulito Inman, Status: Pen, Time: 9:20 AM -[facility] 250 DO Work Phone: Start: 10-26-2021 FUV, Provider: Raulito Inman, Status: Pen, Time: 9:30 AM FUV, Provider: Raulito Inman, Status: Pen, Time: 9:[address] [facility] 250 DO Work Phone: Start: 03-05-2019 Pneumococcal vaccination Pneumococcal Vaccine (2 of 2 - PCV) [facility] Start: 03-05-2019 Pneumococcal Vaccine: Pediatrics (0 to 5 Years) and At-Risk Patients (6 to 64 Years) (2 of 2 - PCV) Pneumococcal Vaccine: Pediatrics (0 to 5 Years) and At-Risk Patients (6 to 64 Years) (2 of 2 - PCV) [facility] Start: 2015 Administration of varicella zoster vaccine Zoster (Shingles) Vaccine (1 of 2) [facility] Start: 2015 Prostate specific antigen measurement PSA Prostate Cancer Screening [facility] Start: 2015 Zoster Vaccines (1 of 2) Zoster Vaccines (1 of 2) [facility] Start: 1987 DTaP/Tdap/Td Vaccines (1 - Tdap) DTaP/Tdap/Td Vaccines (1 - Tdap) [facility] Start: 1984 DTaP,Tdap and Td Vaccines (1 - Tdap) DTaP,Tdap and Td Vaccines (1 - Tdap) [facility] Start: 1984 Hepatitis B Vaccines (1 of 3 - 19+ 3-dose series) Hepatitis B Vaccines (1 of 3 - 19+ 3-dose series) [facility] Start: 1984 Urine screening for protein Diabetes: Urine Protein Screening [facility] Start: 1983 Adult BMI Follow Up Plan Adult BMI Follow Up Plan [facility] Start: 1983 Adult BMI Screening Adult BMI Screening [facility] Start: 1983 Diabetic foot examination Diabetic Foot Exam [facility] Start: 1983 Hepatitis C screening Hepatitis C Screening [facility] Start: 1977 Depression Screening Depression Screening [facility] Start: 1977 Tobacco Screening Tobacco Screening [facility] Start: 1975 Diabetic foot examination Diabetes: Foot Exam [facility] Start: 1975 Glaucoma screening Diabetes: Retinopathy Screening [facility] Start: 1966 MMR Vaccines (1 of 1 - Standard series) MMR Vaccines (1 of 1 - Standard series) [facility] Start: 1965 Creatinine measurement Creatinine Level [facility] Start: 1965 Echocardiography Echocardiogram [facility] Start: 1965 Glaucoma screening Diabetic Ophthalmology Exam [facility] Start: 1965 Hemoglobin A1c measurement Diabetes: Hemoglobin A1C [facility] Start: 1965 HIV screening HIV Screening [facility] Start: 1965 Lipid panel Lipid Panel [facility] Start: 1965 Potassium measurement Potassium Level [facility] Start: 1965 Screening for malignant neoplasm of colon [facility] Start: 1965 Tobacco Counseling Tobacco Counseling [facility] Start: 1965 Urine screening for protein Diabetes: Urine Protein Screening [facility] Start: 1965 Yearly Adult Physical Yearly Adult Physical [facility] Bacteria identified in Blood by Culture [facility] Comprehensive metabo lic 1999 panel - Serum or Plasma [facility] Comprehensive metabo lic 1999 panel - Serum or Plasma [facility] End: 10-17-2024 Creatinine includes GFR, serum Creatinine includes GFR, serum Lab Routine 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 Work Phone: Comment on above: Once for 1 Occurrences starting 01/17/20 24 until 01/17/2024 [facility] Immunizations Immunization Date Immunization Notes Care Provider Sachin pettit 11-13-2020 Pfizer-BioNTech COVID-19 Vacc 30 MCG/0.3ML Intramuscular Suspension Teresa Lynch Work Phone: [facility] 10-23-2020 Pfizer-BioNTech COVID-19 Vacc 30 MCG/0.3ML Intramuscular Suspension Teresa Lynch Work Phone: [facility] 01-14-2019 influenza, seasonal, injectable Teresa Lynch Other [facility] 01-14-2019 influenza virus vaccine, unspecified formulation Yeyo ROWE [facility] 04-02-2018 influenza virus vaccine, unspecified formulation Yeyo ROWE [facility] 04-02-2018 influenza, injectabl e, quadrivalent, preservative free DO Teresa Lynch Work Phone: [facility] 03-05-2018 influenza virus vaccine, unspecified formulation Teresa Lynch Work Phone: [facility] 250 DO Work Phone: 03-05-2018 pneumococcal polysaccharide vaccine, 23 valent Teresa Lynch Work Phone: [facility] 250 DO Work Phone: 03-07-2016 influenza virus vaccine, unspecified formulation Yeyo ROWE [facility] 03-07-2016 influenza, injectabl e, quadrivalent, preservative free Teresa Lynch Work Phone: [facility] 02-22-2016 pneumococcal polysaccharide vaccine, 23 valent Teresa Lynch Work Phone: [facility] NEGATED: Highlighted row has not occurred!08-02-2024 influenza virus vaccine, unspecified formulation MARYBEL VANG [facility] Payers Date Payer Category Payer Medicaid (Managed Care) [facility] [id number] 2023 Self-pay [id number] 2023 Medicaid [id number] 2023 Private Health Insurance [id number] 2022 Private Health Insurance [id number] 2022 Private Health Insurance [id number] 2022 Medicaid [id number] 2022 Unknown 1965 Unknown [id number] 2.16.840.1.877792.3.579.2. 593 1965 Unknown [id number] 2.16.840.1.144225.3.579.2. 1068 1965 Unknown [id number] 2.16.840.1.747351.3.579.2. 356 1965 Unknown [id number] 2.16.840.1.048716.3.579.2. 356 1965 Unknown [id number] 2.16.840.1.462082.3.579.2. 356 1965 Unknown [id number] 2.16.840.1.662657.3.579.2. 1286 1965 Unknown [id number] 2.16.840.1.793538.3.579.2. 1286 1965 Unknown [id number] 2.16.840.1.569022.3.579.2. 1286 1965 Unknown [id number] 2.16.840.1.644947.3.579.2. 1286 1965 Unknown [id number] 2.16.840.1.888778.3.579.2. 1286 1965 Unknown [id number] 2.16.840.1.275840.3.579.2. 1286 1965 Unknown [id number] 2.16.840.1.076796.3.579.2. 1286 1965 Unknown [id number] 2.16.840.1.569617.3.579.2. 1286 1965 Unknown [id number] 2.16.840.1.454069.3.579.2. 727 1965 Unknown [id number] 2.16.840.1.659244.3.579.2 1965 Unknown [id number] 2.16.840.1.569468.3.579. 1965 Unknown [id number] 2.16.840.1.979664.3.579.2 1965 Unknown [id number] 2.16.840.1.606182.3.579. 1965 Unknown [id number] 2.16.840.1.150833.3.579. 1965 Unknown [id number] 2.16.840.1.623555.3.579. 1965 Unknown [id number] 2.16.840.1.545721.3.579. 1965 Unknown [id number] 2.16.840.1.430696.3.579. 1965 Unknown [id number] 2.16.840.1.567640.3.579. 1965 Unknown [id number] 2.16.840.1.446597.3.579. 1965 Unknown [id number] 2.16.840.1.193108.3.579. 1965 Unknown [id number] 2.16.840.1.097270.3.579. 1965 Unknown [id number] 2.16.840.1.412376.3.579.2 1965 Unknown [id number] 2.16.840.1.666411.3.579. 1965 Unknown [id number] 2.16.840.1.883676.3.579. 1965 Unknown [id number] 2.16.840.1.344443.3.579. 1965 Unknown [id number] 2.16.840.1.688021.3.579.2. 1965 Unknown [id number] 2.16.840.1.124292.3.579.2. 1965 Unknown [id number] 2.16.840.1.265602.3.579.2. 1965 Unknown [id number] 2.16.840.1.736357.3.579.2. 1965 Unknown [id number] 2.16.840.1.994532.3.579.2. 1965 Unknown [id number] 2.16.840.1.402213.3.579.2. 1965 Unknown [id number] 2.16.840.1.124201.3.579.2. 1965 Unknown [id number] 2.16.840.1.403389.3.579.2. 1965 Unknown [id number] 2.16.840.1.921534.3.579.2 1965 Unknown [id number] 2.16.840.1.229934.3.579.2 1965 Unknown [id number] 2.16.840.1.906064.3.579.2. 1285 1965 Unknown [id number] 2.16.840.1.174930.3.579.2. 1285 1965 Unknown [id number] 2.16.840.1.922950.3.579.2. 1285 1965 Unknown [id number] 2.16.840.1.186465.3.579.2. 1285 1965 Unknown [id number] 2.16.840.1.665956.3.579.2. 1285 1965 Unknown [id number] 2.16.840.1.646916.3.579.2. 1286 1965 Unknown [id number] 2.16.840.1.989315.3.579.2. 727 1965 Unknown [id number] 2.16.840.1.130275.3.579.2. 727 1965 Unknown [id number] 2.16.840.1.016709.3.579.2. 727 1965 Unknown [id number] 2.16.840.1.660486.3.579.2. 1244 1965 Unknown [id number] 2.16.840.1.647536.3.579.2. 727 1965 Unknown [id number] 2.16.840.1.460296.3.579.27 1965 Unknown [id number] 2.16.840.1.127628.3.579.2. 1965 Unknown [id number] 2.16.840.1.248067.3.579.2. 727 1965 Unknown [id number] 2.16.840.1.296107.3.579.2. 1245 1965 Unknown [id number] 2.16.840.1.523241.3.579.2. 1245 1965 Unknown [id number] 2.16.840.1.004907.3.579.2. 1245 1965 Unknown [id number] 2.16.840.1.995531.3.579.2. 1245 1965 Unknown [id number] 2.16.840.1.985269.3.579.2. 1246 1959 Unknown [id number] 2.16.840.1.682393.19 Unknown [id number] 2.16.840.1.947585.3.579.2. 531 Unknown [id number] 2.16.840.1.386727.3.579.2. 531 Unknown [id number] 2.16.840.1.035632.3.579.2. 531 Unknown [id number] 2.16.840.1.293429.3.579.2. 531 Unknown [id number] 2.16.840.1.259529.3.579.2. 531 Unknown [id number] 2.16.840.1.288489.3.579.2. 531 Unknown [id number] 2.16.840.1.323575.3.579.2. 531 Unknown [id number] 2.16.840.1.257912.3.579.2. 531 Social History Date Type Detail Facility Start: 08-08-2023 End: 01-01-2024 Caffeine use Caffeine use [facility] Other Comment on above: 2 cups coffee, 4-6 c ups tea daily, occaional soda; qauit 07/2020; Start: 08-08-2023 End: 01-01-2024 Sex Assigned At [facility] Start: 07-14-2020 End: 10-10-2024 Tobacco smoking status NHIS Smoker (finding) [facility] Start: 1965 Sex Assigned At Male F [facility] Start: 11-23-2022 End: 09-27-2024 Tobacco smoking status Heavy tobacco smoker (finding) [facility] Start: 04-30-2022 Tobacco smoking status Never [facility] Start: 10-24-2023 Tobacco smoking stat us NHIS Ex-smoker [facility] Start: 10-05-1981 End: 06-05-2020 History of tobacco use [facility] Start: 10-24-2023 End: 11-07-2023 Tobacco use and exposure Smokeless tobacco non-user [facility] Work Phone: Start: 10-24-2023 End: 01-01-2024 Alcoholic beverage intake Lifetime non-drinker (finding) [facility] Work Phone: Start: 1965 Sex assigned at Not on file P [facility] Start: 10-14-2023 End: 01-17-2024 Exposure to SARS-CoV-2 (event) Not sure [facility] Start: 03-10-2024 Tobacco smoking stat us NHIS Unknown if ever smoked [facility] Start: 09-16-2009 End: 04-23-2024 Sex Male (finding) [facility] Start: 10-05-1981 End: 11-07-2023 Tobacco smoking status NHIS Smokes tobacco daily [facility] Start: 11-10-2023 End: 02-29-2024 Alcoholic beverage intake Ex-drinker (finding) [facility] Has the [employer], or [employer] threatened to shut off services in your home in past 12Mo No [facility] How often to you hav e a drink containing alcohol? 2-4 times a month [facility] How many standard drinks containing alcohol do you have on a typical day? 1 or 2 [facility] How often do you hav e 6 or more drinks on 1 occasion? Never [facility] Start: 08-12-2024 SDOH Follow up SDOH Follow up [facility] Work Phone: Sexual Orientation [facility] Medical Equipment Procedure Code Equipment Code [...] extremity runoff FDA Start: 09-27-2018 Start: 12-16-2013 ()[id number] FDA Start: 07-14-2020 Insulin Syringe,Safety Needle 1 mL 30 gauge x 1/2 syringe Start: 03-29-2024 Pen Needle, Diabetic (Comfort Ez Pen [place]) 32 gauge x 5/32 needle Start: 04-15-2024 Insulin Syringe,Safety Needle 1 mL 30 gauge x 1/2 syringe Start: 03-29-2024 Pen Needle, Diabetic (Comfort Ez Pen [place]) 32 gauge x 5/32 needle Start: 04-15-2024 LLE Angiogram Unknown 01/08/24 Non Biological Left Femoral Artery/Vein FDA Start: 01-08-2024 LLE Angiogram Unknown 01/08/24 Non Biological Left Femoral Artery/Vein FDA Start: 01-08-2024 LLE Angiogram Unknown 01/08/24 Non Biological Left Femoral Artery/Vein FDA Start: 01-08-2024 Graft Vsc 50cm 6 mm [place] Thnwl Hep Propaten Ptfe Rem Rng - [id number] - [id number] Start: 11-08-2023 Comment on above: Description: RIGHT F EMORAL ARTERY Stent Vsc Epic 10mm 100mm 120cm 6fr Rdpq Otw Slf Xpd Gw - [id number] FDA Start: 11-07-2023 LLE Angiogram Unknown 01/08/24 Non Biological Left Femoral Artery/Vein FDA Start: 01-08-2024 Insulin Syringe,Safety Needle 1 mL 30 gauge x 1/2 syringe Start: 03-29-2024 Pen Needle, Diabetic (Comfort Ez Pen [place]) 32 gauge x 5/32 needle Start: 04-15-2024 Insulin Syringe,Safety Needle 1 mL 30 gauge x 1/2 syringe Start: 03-29-2024 Pen Needle, Diabetic (Comfort Ez Pen [place]) 32 gauge x 5/32 needle Start: 04-15-2024 Insulin Syringe,Safety Needle 1 mL 30 gauge x 1/2 syringe Start: 03-29-2024 Pen Needle, Diabetic (Comfort Ez Pen [place]) 32 gauge x 5/32 needle Start: 04-15-2024 Insulin Syringe,Safety Needle 1 mL 30 gauge x 1/2 syringe Start: 03-29-2024 Pen Needle, Diabetic (Comfort Ez Pen [place]) 32 gauge x 5/32 needle Start: 04-15-2024 Insulin Syringe,Safety Needle 1 mL 30 gauge x 1/2 syringe Start: 03-29-2024 Pen Needle, Diabetic (Comfort Ez Pen [place]) 32 gauge x 5/32 needle Start: 04-15-2024 Insulin Syringe,Safety Needle 1 mL 30 gauge x 1/2 syringe Start: 03-29-2024 Pen Needle, Diabetic (Comfort Ez Pen [place]) 32 gauge x 5/32 needle Start: 04-15-2024 Insulin Syringe,Safety Needle 1 mL 30 gauge x 1/2 syringe Start: 03-29-2024 Pen Needle, Diabetic (Comfort Ez Pen [place]) 32 gauge x 5/32 needle Start: 04-15-2024 LLE Angiogram Unknown 01/08/24 Non Biological Left Femoral Artery/Vein FDA Start: 01-08-2024 Goals Date Patient Goal Desired Activity /State Personal health goal Comment on above: Formatting of this n ote might be different from the original. Evaluation of progress towards goal: Patient is planning to transition back to SNF at discharge. Functional Status Date Assessment Result Facility 10-11-2024 Functional status Patient at Baseline [facility] Work Phone: 10-10-2024 Functional status Patient at Baseline [facility] Work Phone: 08-13-2024 Functional status Patient at Baseline [facility] Work Phone: 08-02-2024 Functional Status N/A [facility] 05-27-2024 Functional Status N/A [facility] 03-13-2024 Functional status Patient at [facility] Work Phone: 03-06-2024 Functional status Patient at Baseline [facility] Work Phone: 02-12-2024 Functional Status No [facility] 10-23-2023 Functional Status No [facility] 06-02-2023 Functional Status N/A [facility] 02-14-2023 Functional Status N/A [facility] 01-30-2023 Functional Status N/A [facility] 11-23-2022 Functional Status N/A [facility] Mental Status Date Assessment Result Facility 10-11-2024 Cognitive function Patient at Baseline [facility] Work Phone: 10-10-2024 Cognitive function Cognitive Sta tus Patient at Baseline [facility] Work Phone: 08-13-2024 Cognitive function Patient at Baseline [facility] Work Phone: 03-13-2024 Cognitive function Patient at Baseline [facility] Work Phone: 03-06-2024 Cognitive function Patient at Baseline [facility] Work Phone: Clinical Notes 06-23-2021 to 01-02-2025 Telephone Encounter - Baylee Chu CMA - 01/02/2025 10:59 AM EDTTelephone Encounter - Baylee Chu CMA - 01/02/2025 10:59 AM EDT Note Date & Type Note Facility 01-02-2025 Miscellaneous Notes Formattin g of this note might be different from the original. LVM to see if patient can head over now for his appointment documented in this encounter [facility] 01-02-2025 Telephone encount er Note LVM to see if patient can head over now for his appointment [facility] 11-05-2024 Hospital Discharg e instructions Ambulatory OrdersReferral to Diabetes Management Time Frame: 11/05/24, Location: None Selected [facility] Work Phone: 10-10-2024 Consult note Note Date/Time October 11, 2024 9:56am [facility] [address] [place] [address] Cardiology Consult Note Signed Patient: Myra Pickard SR MR#: [id number] : 1965 Acct:[id number] Age/Sex: 59 / M Adm Date: 5 Loc: 4 Room: [address] [place] [address] Type: ADM INOo Attending Dr: Abdullahi Canchola DO Copies to: DO Pascale Guzman MD, FACC Abdullahi Canchola, DO~ Cardiology HPI History of Present Illness [...] post right below-knee amputation February 2024 in [place]. He has COPD followed by pulmonary medicine in [place]. 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 Other review of system was unremarkable [facility] Medical History Hypokalemia Hypocalcemia Hypomagnesemia Vitamin B12 [...] mass Atrial fibrillation Atherosclerotic heart disease of [place] coronary artery with unspecified angina pectoris Anxiety Hx of exercise stress test Family history of premature CAD Reports mother had quadruple bypass at age of 45 Myocardial infarction mild Fibromyalgia Chronic back pain Sleep apnea Neuropathy Cataract Peripheral artery disease Hyperlipidemia Diabetes Hypertension Surgical History History of below-knee amputation of right lower extremity 02/2024 [facility] [place]. Simon Hernández Vascular History of [...] [History Confirmed 10/10/24] flash glucose scanning reader (FreeStyle Jigar 2 [place]) #1 ea 12/28/23 [Rx Confirmed 10/10/24] flash [...] 32 gauge x 5/32 (Comfort EZ Pen [place]) #100 ea 04/15/24 [Rx Confirmed 10/10/24] hydroxyzine [...] Lymph # (Auto) 2.0 2.0 (1.00-4.8) x10E3/uL [place] # (Auto) 0.8 0.9 H (0.0-0.8) x10E3/uL [...] RCA, nuclear stress test February 2024 in [place] was normal Plan: Continue aggressive risk factors modifications, tobacco cessation, dual antiplatelet therapy, high intensity statin Code(s): I25.10 - Atherosclerotic heart disease of [place] coronary artery without angina pectoris Documented By: Pascale Arnold MD, MERGED WITH [facility] 5 0992 Signed By: <Electronically signed by MD JOHNATHAN Arnold> 10/11/24 0956 [facility] Work Phone: 1(166) 458-841804-25-2025 NotePatient Education Urology Acute Urinary Retention, Male [...] these instructions at home: Medicines ??? Take [id number] and prescription medicines only as told by [...] provider. Document Revised: 02/10/2021 Document Reviewed: 02/10/2021 [employer] Patient Education ? 2023 [place] 08-30-2024 Hospital Discharge instructionsAmbulatory Orders* Referral to Pain Management Time Frame: 08/30/24, Location: None [facility] Work Phone: 1(518) 231-505503-11-2025 [place] [address] Discharge Summary Signed Patient: Myra Pickard SR MR#: [id number] : 1965 Acct:[id number] Age/Sex: 59 / M Adm Date: 5 Loc: Room: [address] [place] [address]: Kevon Viera MD Copies to: [...] (DME) pen needle, diabetic [Comfort EZ Pen [place]] 32 gauge x 5/32 needle See Rx [...] 100 5RF Rx Instructions: As directed (DME) AvidiaStyle Jigar 2 Sensor Kit See Rx Instructions .Route Qty: 1 0RF Rx Instructions: As directed (DME) FreeStyle Jigar 2 [place] Misc See Rx Instructions .Route Qty: 1 [...] 08/13/24 14 35 Signed By: 08/13/24 1439 [facility]03-11-2025 Progress note Author Maurice Francis [facility] Note Date/Time August 13, 2024 11: 06am [facility] [address] [place] [address] Nephrology Progress Note Signed Patient: Myra Pickard SR MR#: [id number] : 1965 Acct:[id number] Age/Sex: 59 / M Adm Date: 5 Loc: Room: [address] [place] [address] Type: ADM IN Attending Dr: Kevon Viera [...] Skin: No rashes , warm to touch BURR BENCH HAND: Awake,Alert, 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 Musculoskeletal: No swelling [...] 25 Mg Tablet) 25 mg PO HS [facility] Stop: 08/11/25 21:59 Last Admin: 08/12/24 21:48 [...] 1,000 Mcg/Ml Vial) 1,000 mcg IM DAILY [facility] Stop: 08/17/24 09:01 Last Admin: 08/13/24 08:25 [...] 5,000 Unit/Ml Vial) 5,000 unit SUBCUT Q12HR [facility] Stop: 08/11/25 08:59 Last Admin: 08/13/24 08:25 Dose: 5,000 unit Hydralazine HCl (Hydralazine 20 Mg/Ml Vial) 10 mg IV-PUSH Q4H PRN PRN Reason: if SBP > 185 Stop: 08/11/25 05:38 Ferric Sodium Gluconate Complex 250 mg/ Sodium Chloride 270 mls @ 135 mls/hr IVQAM [facility] Stop: 08/14/24 10:59 Last Admin: 08/12/24 09:19 Dose: 135 mls/hr Insulin Aspart (Insulin Aspart 300 Units/3 Ml) 0 units SUBCUT TID.WM.[facility]; Protocol Stop: 08/11/25 07:59 Last Admin: 08/13/24 08:25 Dose: 1 units Ipratropium [place] (Ipratropium [place] 0.5 Mg/2.5 Ml Vial.Neb) 0.5 mg INHALATION QID.RESP [facility] Stop: 08/11/25 07:59 Last Admin: 08/13/24 07:54 Dose: 0.5 mg Isosorbide Mononitrate (Isosorbide Mononitrate 24hr Er 30 Mg Tab.Er.24h) 30 mg PO DAILY [facility] Stop: 08/11/25 08:59 Last Admin: 08/13/24 08:25 Dose: 30 mg Metoprolol Tartrate (Metoprolol Tartrate 100 Mg Tablet) 100 mg PO BID [facility] Stop: 08/11/25 08:59 Last Admin: 08/13/24 08:25 Dose: 100 mg Pantoprazole Sodium (Pantoprazole 40 Mg Tablet.) 40 mg PO BID [facility] Stop: 08/11/25 [...] weeks Documented By: Maurice Francis MD 08/13/24 2971 Signed By: <Electronically signed by Maurice Francis MD> 08/13/24 [facility] Work Phone: [phone]) [phone] [place] [address] Nephrology Progress Note Signed Patient: Myra Pickard SR MR#: [id number] : 1965 Acct:[id number] Age/Sex: 59 / M Adm Date: 5 Loc: 3T Room: [address] [place] [address] Type: ADM IN Attending Dr: Kevon Viera [...] Skin: No rashes , warm to touch BURR BENCH HAND: Awake,Alert, 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 Musculoskeletal: No swelling [...] Chloride 270 mls @ 135 mls/hr IVQAM [facility] Stop: 08/14/24 10:59 Last Admin: 08/12/24 09:19 Dose: 135 mls/hr Insulin Aspart (Insulin Aspart 300 Units/3 Ml) 0 units SUBCUT TID.WM.HS [facility]; Protocol Stop: 08/11/25 07:59 Last Admin: 08/13/24 08:25 Dose: 1 units Ipratropium [place] (Ipratropium [place] 0.5 Mg/2.5 Ml Vial.Neb) 0.5 mg INHALATION QID.RESP [facility] Stop: 08/11/25 07:59 Last Admin: 08/13/24 07:54 Dose: 0.5 mg Isosorbide Mononitrate (Isosorbide Mononitrate 24hr Er 30 Mg Tab.Er.24h) 30 mg PO DAILY [facility] Stop: 08/11/25 08:59 Last Admin: 08/13/24 08:25 Dose: 30 mg Metoprolol Tartrate (Metoprolol Tartrate 100 Mg Tablet) 100 mg PO BID [facility] Stop: 08/11/25 08:59 Last Admin: 08/13/24 08:25 Dose: 100 mg Pantoprazole Sodium (Pantoprazole 40 Mg Tablet.Dr) 40 mg PO BID [facility] Stop: 08/11/25 08:59 Last Admin: 08/13/24 08:25 Dose: 40 mg Pregabalin (Pregabalin 75 Mg Capsule) 75 mg PO TID [facility] Stop: 02/07/25 08:59 Last Admin: 08/13/24 08:25 [...] MD 08/13/24 0855 Signed By: 08/13/24 1106 [facility]03-10-2025 Progress note Author Kevon Viera [facility] Note Date/Time August 12, 2024 3:1 6pm [facility] [address] [place] [address] Hospitalist Progress Note Signed Patient: Myra Pickard SR MR#: [id number] : 1965 Acct:[id number] Age/Sex: 59 / M Adm Date: 5 Loc: Room: [address] [place] [address] Type: ADM IN Attending Dr: Kevon Viera [...] 08/11/24 09:00 08/12/24 08:27 Aspirin 81 Mg Tablet. PO 08/11/25 08:59 81 mg DAILY [facility] [...] 1 units TID.WM.HS [facility] Administration Protocol Ipratropium [place] 0.5 mg 08/11/24 08:00 08/12/24 12:31 Ipratropium [place] 0.5 Mg/2.5 Ml Vial.Neb INHALATION 08/11/25 07:59 [...] <Electronically signed by Kevon Viera MD> 08/12/24 [facility] Work Phone: [phone]) 985-744303-10-2025 [place] [address] Hospitalist Progress Note Signed Patient: Myra Pickard SR MR#: [id number] : 1965 Acct:[id number] Age/Sex: 59 / M Adm Date: 5 Loc: Room: [address] [place] [address] Type: ADM IN Attending Dr: Kevon Viera [...] 08/11/24 09:00 08/12/24 08:27 Aspirin 81 Mg Tablet. PO 08/11/25 08:59 81 mg DAILY [facility] [...] 1 units TID.WM.HS [facility] Administration Protocol Ipratropium [place] 0.5 mg 08/11/24 08:00 08/12/24 12:31 Ipratropium [place] 0.5 Mg/2.5 Ml Vial.Neb INHALATION 08/11/25 07:59 [...] MD 08/12/24 15 12 Signed By: 08/12/24 1516 [facility]03-10-2025 Progress note Author Maurice Francis [facility] Note Date/Time August 12, 2024 11: 47am [facility] [address] [place] [address] Nephrology Progress Note Signed Patient: Myra Pickard SR MR#: [id number] : 1965 Acct:[id number] Age/Sex: 59 / M Adm Date: 5 Loc: Room: [address] [place] [address] Type: ADM IN Attending Dr: Kevon Viera [...] Skin: No rashes , warm to touch BURR BENCH HAND: Awake,Alert, 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 Musculoskeletal: No swelling [...] (Amitriptyline 25 Mg Tablet) 25 mg PO [facility] Stop: 08/11/25 21:59 Last Admin: 08/11/24 21:17 Dose: 25 mg Aspirin (Aspirin 81 Mg Tablet.) 81 mg PO DAILY [facility] Stop: 08/11/25 08:59 Last Admin: 08/12/24 08:27 Dose: 81 mg Atorvastatin Calcium (Atorvastatin 80 Mg Tablet) 80 mg PO DAILY [facility] Stop: 08/11/25 08:59 Last Admin: 08/12/24 08:27 Dose: 80 mg Budesonide/Formoterol Fumarate (Budesonide/Formoterol 160-4.5 Mcg 60 Puff/6 Gm Hfa.Aer.Ad) 2 puff INHALATION BID [facility] Stop: 08/11/25 08:59 Last Admin: 08/12/24 08:52 Dose: 2 puff Calcium Carbonate (Calcium Carbonate/Vitamin D3 500 Mg/200 Unit Tablet) 2 tab PO TID.WITH.MEALS [facility] Stop: 08/11/25 07:59 Last Admin: 08/12/24 08:27 Dose: 2 tab Clopidogrel Bisulfate (Clopidogrel Bisulfate 75 Mg Tablet) 75 mg PO DAILY [facility] Stop: 08/11/25 08:59 Last Admin: 08/12/24 08:27 Dose: 75 mg Cyanocobalamin (Cyanocobalamin 1,000 Mcg/Ml Vial) 1,000 mcg IM DAILY [facility] Stop: 08/17/24 09:01 Last Admin: 08/12/24 08:27 [...] 1,000 mls @ 125 mls/hr IV .Q8H [facility] Stop: 08/11/25 07:14 Last Admin: 08/12/24 08:26 Dose: 125 mls/hr Ferric Sodium Gluconate Complex 250 mg/ Sodium Chloride 270 mls @ 135 mls/hr IVQAM [facility] Stop: 08/14/24 10:59 Last Admin: 08/12/24 09:19 Dose: 135 mls/hr Insulin Aspart (Insulin Aspart 300 Units/3 Ml) 0 units SUBCUT TID.WM.[facility]; Protocol Stop: 08/11/25 07:59 Last Admin: 08/12/24 08:27 Dose: Not Given Ipratropium [place] (Ipratropium [place] 0.5 Mg/2.5 Ml Vial.Neb) 0.5 mg INHALATION QID.RESP [facility] Stop: 08/11/25 07:59 Last Admin: 08/12/24 08:51 Dose: 0.5 mg Isosorbide Mononitrate (Isosorbide Mononitrate 24hr Er 30 Mg Tab.Er.24h) 30 mg PO DAILY [facility] Stop: 08/11/25 08:59 Last Admin: 08/12/24 08:27 Dose: 30 mg Metoprolol Tartrate (Metoprolol Tartrate 100 Mg Tablet) 100 mg PO BID [facility] Stop: 08/11/25 08:59 Last Admin: 08/12/24 08:27 Dose: 100 mg Pantoprazole Sodium (Pantoprazole 40 Mg Tablet.Dr) 40 mg PO BID [facility] Stop: 08/11/25 08:59 Last Admin: 08/12/24 08:27 Dose: 40 mg Pregabalin (Pregabalin 75 Mg Capsule) 75 mg PO TID [facility] Stop: 02/07/25 08:59 Last Admin: 08/12/24 08:27 Dose: 75 mg Ropinirole HCl (Ropinirole 1 Mg Tablet) 1 mg PO TID [facility] Stop: 08/11/25 08:59 Last Admin: 08/12/24 08:27 Dose: 1 mg Tamsulosin HCl (Tamsulosin 0.4 Mg Cap.Er.24h) 0.4 mg PO BID [facility] Stop: 08/11/25 08:59 Last Admin: 08/12/24 08:27 Dose: 0.4 mg Tizanidine HCl (Tizanidine 4 Mg Tablet) 4 mg PO QHS [facility] Stop: 08/11/25 21:59 Last Admin: 08/11/24 21:17 [...] <Electronically signed by Maurice Francis MD> 08/12/24 1145 [facility] Work Phone: [phone]) 449-287903-10-2025 [place] [address] Nephrology Progress Note Signed Patient: Myra Pickard SR MR#: [id number] : 1965 Acct:[id number] Age/Sex: 59 / M Adm Date: 5 Loc: Room: [address] [place] [address] Type: ADM IN Attending Dr: Kevon Viera [...] Skin: No rashes , warm to touch BURR BENCH HAND: Awake,Alert, 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 Musculoskeletal: No swelling [...] 25 Mg Tablet) 25 mg PO HS [facility] Stop: 08/11/25 21:59 Last Admin: 08/11/24 21:17 Dose: 25 mg Aspirin (Aspirin 81 Mg Tablet.) 81 mg PO DAILY [facility] Stop: 08/11/25 08:59 Last Admin: 08/12/24 08:27 Dose: 81 mg Atorvastatin Calcium (Atorvastatin 80 Mg Tablet) 80 mg PO DAILY [facility] Stop: 08/11/25 08:59 Last Admin: 08/12/24 08:27 Dose: 80 mg Budesonide/Formoterol Fumarate (Budesonide/Formoterol 160-4.5 Mcg 60 Puff/6 Gm Hfa.Aer.Ad) 2 puff INHALATION BID [facility] Stop: 08/11/25 08:59 Last Admin: 08/12/24 08:52 [...] 1,000 Mcg/Ml Vial) 1,000 mcg IM DAILY [facility] Stop: 08/17/24 09:01 Last Admin: 08/12/24 08:27 [...] 5,000 Unit/Ml Vial) 5,000 unit SUBCUT Q12HR [facility] Stop: 08/11/25 08:59 Last Admin: 08/12/24 08:27 Dose: 5,000 unit Hydralazine HCl (Hydralazine 20 Mg/Ml Vial) 10 mg IV-PUSH Q4H PRN PRN Reason: if SBP > 185 Stop: 08/11/25 05:38 Potassium Chloride/Sodium Chloride (0.9 % Nacl-20 Meq Kcl) 1,000 mls @ 125 mls/hr IV .Q8H [facility] Stop: 08/11/25 07:14 Last Admin: 08/12/24 08:26 Dose: 125 mls/hr Ferric Sodium Gluconate Complex 250 mg/ Sodium Chloride 270 mls @ 135 mls/hr IVQAM [facility] Stop: 08/14/24 10:59 Last Admin: 08/12/24 09:19 Dose: 135 mls/hr Insulin Aspart (Insulin Aspart 300 Units/3 Ml) 0 units SUBCUT TID.WM.HS [facility]; Protocol Stop: 08/11/25 07:59 Last Admin: 08/12/24 08:27 Dose: Not Given Ipratropium [place] (Ipratropium [place] 0.5 Mg/2.5 Ml Vial.Neb) 0.5 mg INHALATION QID.RESP [facility] Stop: 08/11/25 07:59 Last Admin: 08/12/24 08:51 Dose: 0.5 mg Isosorbide Mononitrate (Isosorbide Mononitrate 24hr Er 30 Mg Tab.Er.24h) 30 mg PO DAILY [facility] Stop: 08/11/25 08:59 Last Admin: 08/12/24 08:27 Dose: 30 mg Metoprolol Tartrate (Metoprolol Tartrate 100 Mg Tablet) 100 mg PO BID [facility] Stop: 08/11/25 08:59 Last Admin: 08/12/24 08:27 Dose: 100 mg Pantoprazole Sodium (Pantoprazole 40 Mg Tablet.Dr) 40 mg PO BID [facility] Stop: 08/11/25 08:59 Last Admin: 08/12/24 08:27 Dose: 40 mg Pregabalin (Pregabalin 75 Mg Capsule) 75 mg PO TID [facility] Stop: 02/07/25 08:59 Last Admin: 08/12/24 08:27 Dose: 75 mg Ropinirole HCl (Ropinirole 1 Mg Tablet) 1 mg PO TID [facility] Stop: 08/11/25 08:59 Last Admin: 08/12/24 08:27 Dose: 1 mg Tamsulosin HCl (Tamsulosin 0.4 Mg Cap.Er.24h) 0.4 mg PO BID [facility] Stop: 08/11/25 08:59 Last Admin: 08/12/24 08:27 Dose: 0.4 mg Tizanidine HCl (Tizanidine 4 Mg Tablet) 4 mg PO QHS [facility] Stop: 08/11/25 21:59 Last Admin: 08/11/24 21:17 [...] Maurice Francis MD 08/12/24 1115 Signed By: 08/12/24 1147 [facility]03-09-2025 Consult note Author Amina Fagan [facility] Note Date/Time August 11, 2024 2:18 pm [facility] [address] [place] [address] Nephrology Consult Note Signed Patient: Myra Pickard SR MR#: [id number] : 1965 Acct:[id number] Age/Sex: 59 / M Adm Date: 5 Loc: Room: [address] [place] [address] Type: ADM IN Attending Dr: Kevon Viera [...] reviewed 12 system review is negative today [facility] Medical History Chronic obstructive pulmonary disease, unspecified [...] mass Atrial fibrillation Atherosclerotic heart disease of [place] coronary artery with unspecified angina pectoris Anxiety Hx of exercise stress test Family history of premature CAD Reports mother had quadruple bypass at age of 45 Myocardial infarction mild Fibromyalgia Chronic back pain Sleep apnea Neuropathy Cataract Peripheral artery disease Hyperlipidemia Diabetes Hypertension Surgical History History of below-knee amputation of right lower extremity 02/2024 [facility] [place]. Simon Hernández Vascular History of [...] [History Confirmed 08/11/24] flash glucose scanning reader (Roundsyle Jigar 2 [place]) #1 ea 12/28/23 [Rx Confirmed 08/11/24] flash glucose sensor (AvidiaStyle Jigar 2 Sensor kit) #1 ea 12/28/23 [...] 08/11/24] pen needle, diabetic 32 gauge x /32 (Comfort EZ Pen [place]) #100 ea 04/15/24 [Rx Confirmed 08/11/24] hydroxyzine [...] 25 Mg Tablet) 25 mg PO HS [facility] Stop: 08/11/25 21:59 Aspirin (Aspirin 81 Mg [...] 1,000 Mcg/Ml Vial) 1,000 mcg IM DAILY [facility] Stop: 08/17/24 09:01 Last Admin: 08/11/24 09:14 [...] 5,000 Unit/Ml Vial) 5,000 unit SUBCUT Q12HR [facility] Stop: 08/11/25 08:59 Last Admin: 08/11/24 09:14 [...] 1,000 mls @ 125 mls/hr IV .Q8H [facility] Stop: 08/11/25 07:14 Last Admin: 08/11/24 11:51 Dose: 125 mls/hr Insulin Aspart (Insulin Aspart 300 Units/3 Ml) 0 units SUBCUT TID.WM.[facility]; Protocol Stop: 08/11/25 07:59 Last Admin: 08/11/24 13:40 Dose: Not Given Ipratropium [place] (Ipratropium [place] 0.5 Mg/2.5 Ml Vial.Neb) 0.5 mg INHALATION [...] TID [facility] Stop: 02/07/25 08:59 Last Admin: 08/11/24 13:40 Dose: 75 mg Ropinirole HCl (Ropinirole 1 Mg Tablet) 1 mg PO TID [facility] Stop: 08/11/25 08:59 Last Admin: 08/11/24 13:40 Dose: 1 mg Tamsulosin HCl (Tamsulosin 0.4 Mg Cap.Er.24h) 0.4 mg PO BID [facility] Stop: 08/11/25 08:59 Last Admin: 08/11/24 09:13 Dose: 0.4 mg Tizanidine HCl (Tizanidine 4 Mg Tablet) 4 mg PO QHS [facility] Stop: 08/11/25 21:59 Exam Physical Exam Vital [...] Appearance Clear Urine pH 5.5 Ur Specific [place] 1.024 Urine Protein Negative Urine Glucose (UA) 500 H Urine Ketones Negative Urine Occult Blood Negative Urine Nitrite Negative Ur Leukocyte Esterase Negative Radiology Impressions Impressions - last 24 hours: Impressions Chest X-Ray 08/11/24 04:22 IMPRESSION: No acute process. Impression dictated by: Sudeep Lind M.D.08/11/2024 10:06 AM [facility]ict[facility] Location: [place] [address] 08/11/24 04:22 IMPRESSION: No acute [...] Sudeep Lind M.D.08/11/2024 10:06 AM [employer] Location: [place] [address] Any impression(s) listed above is documentation that [...] or concern Documented By: Amina Fagan MD 08/11/246 Signed By: <Electronically signed by Amina Fagan MD> 08/11/24 1787 [facility] Work Phone: 1(323) 596-809903-09-2025 Progress note Author Kevon Viera [facility] Note Date/Time August 11, 2024 1:21 pm [facility] [address] [place] [address] Progress Note Signed Patient: Myra Pickard SR MR#: [id number] : 1965 Acct:[id number] Age/Sex: 59 / M Adm Date: 5 Loc: 3T Room: [address] [place] [address] Type: ADM IN Attending Dr: Kevon Viera [...] <Electronically signed by Kevon Viera MD> 08/11/24 [facility] Work Phone: 1([phone] 390-531703-09-2025 [place] [address] Nephrology Consult Note Signed Patient: Myra Pickard SR MR#: [id number] : 1965 Acct:[id number] Age/Sex: 59 / M Adm Date: 5 Loc: Room: [address] [place] [address] Type: ADM IN Attending Dr: Kevon Viera [...] reviewed 12 system review is negative today [facility] Medical History Chronic obstructive pulmonary disease, unspecified [...] mass Atrial fibrillation Atherosclerotic heart disease of [place] coronary artery with unspecified angina pectoris Anxiety Hx of exercise stress test Family history of premature CAD Reports mother had quadruple bypass at age of 45 Myocardial infarction mild Fibromyalgia Chronic back pain Sleep apnea Neuropathy Cataract Peripheral artery disease Hyperlipidemia Diabetes Hypertension Surgical History History of below-knee amputation of right lower extremity 02/2024 [facility] [place]. Simon Hernández Vascular History of [...] 07/12/23[History Confirmed 08/11/24] flash glucose scanning reader ([employer] Jigar 2 [place]) #1 ea 12/28/23 [Rx Confirmed 08/11/24] flash glucose sensor ([employer] Jigar 2 Sensor kit) #1 ea 12/28/23 [...] 08/11/24] pen needle, diabetic 32 gauge x /32 (Comfort EZ Pen [place]) #100 ea 04/15/24 [Rx Confirmed 08/11/24] hydroxyzine [...] 25 Mg Tablet) 25 mg PO HS [facility] Stop: 08/11/25 21:59 Aspirin (Aspirin 81 Mg Tablet.) 81 mg PO DAILY [facility] Stop: 08/11/25 08:59 Last Admin: 08/11/24 09:13 Dose: 81 mg Atorvastatin Calcium (Atorvastatin 80 Mg Tablet) 80 mg PO DAILY [facility] Stop: 08/11/25 08:59 Last Admin: 08/11/24 09:14 Dose: 80 mg Budesonide/Formoterol Fumarate (Budesonide/Formoterol 160-4.5 Mcg 60 Puff/6 Gm Hfa.Aer.Ad) 2 puff INHALATION BID [facility] Stop: 08/11/25 08:59 Last Admin: 08/11/24 09:41 Dose: 2 puff Calcium Carbonate (Calcium Carbonate/Vitamin D3 500 Mg/200 Unit Tablet) 2 tab PO TID.WITH.MEALS [facility] Stop: 08/11/25 07:59 Last Admin: 08/11/24 13:40 Dose: 2 tab Clopidogrel Bisulfate (Clopidogrel Bisulfate 75 Mg Tablet) 75 mg PO DAILY [facility] Stop: 08/11/25 08:59 Last Admin: 08/11/24 09:14 Dose: 75 mg Cyanocobalamin (Cyanocobalamin 1,000 Mcg/Ml Vial) 1,000 mcg IM DAILY [facility] Stop: 08/17/24 09:01 Last Admin: 08/11/24 09:14 [...] 5,000 Unit/Ml Vial) 5,000 unit SUBCUT Q12HR [facility] Stop: 08/11/25 08:59 Last Admin: 08/11/24 09:14 [...] 1,000 mls @ 125 mls/hr IV .Q8H [facility] Stop: 08/11/25 07:14 Last Admin: 08/11/24 11:51 Dose: 125 mls/hr Insulin Aspart (Insulin Aspart 300 Units/3 Ml) 0 units SUBCUT TID.WM.HS [facility]; Protocol Stop: 08/11/25 07:59 Last Admin: 08/11/24 13:40 Dose: Not Given Ipratropium [place] (Ipratropium [place] 0.5 Mg/2.5 Ml Vial.Neb) 0.5 mg INHALATION [...] 100 mg Pantoprazole Sodium (Pantoprazole 40 Mg Tablet.) 40 mg PO BID [facility] Stop: 08/11/25 08:59 Last Admin: 08/11/24 09:13 Dose: 40 mg Pregabalin (Pregabalin 75 Mg Capsule) 75 mg PO TID [facility] Stop: 02/07/25 08:59 Last Admin: 08/11/24 13:40 Dose: 75 mg Ropinirole HCl (Ropinirole 1 Mg Tablet) 1 mg PO TID [facility] Stop: 08/11/25 08:59 Last Admin: 08/11/24 13:40 Dose: 1 mg Tamsulosin HCl (Tamsulosin 0.4 Mg Cap.Er.24h) 0.4 mg PO BID [facility] Stop: 08/11/25 08:59 Last Admin: 08/11/24 09:13 Dose: 0.4 mg Tizanidine HCl (Tizanidine 4 Mg Tablet) 4 mg PO QHS [facility] Stop: 08/11/25 21:59 Exam Physical Exam Vital [...] Appearance Clear Urine pH 5.5 Ur Specific [place] 1.024 Urine Protein Negative Urine Glucose (UA) 500 H Urine Ketones Negative Urine Occult Blood Negative Urine Nitrite Negative Ur Leukocyte Esterase Negative Radiology Impressions Impressions - last 24 hours: Impressions Chest X-Ray 08/11/24 04:22 IMPRESSION: No acute process. Impression dictated by: Sudeep Lind M.D.08/11/2024 10:06 AM Dictation Location: [place] [address] 08/11/24 04:22 IMPRESSION: No acute [...] Sudeep Lind M.D.08/11/2024 10:06 AM Dictation Location: [place] [address] Any impression(s) listed above is documentation that [...] concern Documented By: Amina Fagan MD 08/11/24 1405 Signed By: 08/11/24 1418 [facility]03-09-2025 [place] [address] Progress Note Signed Patient: Myra Pickard MR#: [id number] : 1965 Acct:[id number] Age/Sex: 59 / M Adm Date: 5 Loc: 3T Room: [address] [place] [address] Type: ADM IN Attending Dr: Kevon Viera [...] 08/11/24 13 20 Signed By: 08/11/24 1321 [facility]03-09-2025 Radiology Diagnostic study note [facility] Main [place] [address] [place] [address] CT Scan Report Signed Patient: Myra Pickard SR MR#: [id number] : 1965 Acct:[id number] Age/Sex: 59 / M ADM Date: 5 Loc: Room: [address] [place] [address] Type: ADM IN Attending Dr: Kevon Viera MD Copies to: MD Francisco Urbina Jr, MD~ Ordering Provider: Francisco Duncan Jr, MD Date of Service: 08/11/24 CT/CT head stroke alert wo con: acute stroke/neuro deficits ([id number]) CT/CT angio neck: L side numb ([id number]) CT/CT angio head: L side numb Unenhanced [...] Sudeep Lind M.D.08/11/2024 10:06 AM Dictation Location: [facility]20 Transcribed By: BOB 08/11/24 1006 Dictated By: Sudeep Lind DO 08/11/24 1000 Signed By: 08/11/24 1006 [facility]03-09-2025 History and physical note Author Marge Andino [facility] Note Date/Time August 11, 2024 7:24 am [facility] [address] [place] [address] Hospitalist H&P Signed Patient: Myra Pickard SR MR#: [id number] : 1965 Acct:[id number] Age/Sex: 59 / M Adm Date: 5 Loc: 3T Room: [address] [place] [address] Type: ADM IN Attending Dr: Kevon Viera [...] neck without acute findings -official report pending [facility] Medical History Chronic obstructive pulmonary disease, unspecified [...] mass Atrial fibrillation Atherosclerotic heart disease of [place] coronary artery with unspecified angina pectoris Anxiety Hx of exercise stress test Family history of premature CAD Reports mother had quadruple bypass at age of 45 Myocardial infarction mild Fibromyalgia Chronic back pain Sleep apnea Neuropathy Cataract Peripheral artery disease Hyperlipidemia Diabetes Hypertension Surgical History History of below-knee amputation of right lower extremity 02/2024 [facility] [place]. Simon Hernández Vascular History of [...] [History Confirmed 08/11/24] flash glucose scanning reader ([employer] Jigar 2 [place]) #1 ea 12/28/23 [Rx Confirmed 08/11/24] flash [...] 32 gauge x 5/32 (Comfort EZ Pen [place]) #100 ea 04/15/24 [Rx Confirmed 08/11/24] hydroxyzine [...] 04:15 Lymph % (Auto) N/A 08/11/24 04:15 [place] % (Auto) N/A 08/11/24 04:15 Eos % (Auto) N/A 08/11/24 04:15 Baso % (Auto) N/A 08/11/24 04:15 Nucleat RBC Rel Count N/A 08/11/24 04:15 Neut # (Auto) N/A 08/11/24 04:15 Lymph # (Auto) N/A 08/11/24 04:15 [place] # (Auto) N/A 08/11/24 04:15 Eos # [...] <Electronically signed by Marge Andino MD> 08/11/24 2024 [facility] Work Phone: 1(598) 360-983303-09-2025 Evaluation note* Diagnosis Onset Date Resolution Status Admit Date Acute kidney injury superimp osed on CKD acute August 11, 2024 5:39am BPH loc w urin obs/LUTS acute [facility] 2024 5:39am Diabetes acute August 11 5:39am Hypocalcemia acute August 11 025 5:39am Hypokalemia acute August 11 5:39am Hypomagnesemia acute August 11, 2024 5:39am Iron deficiency acute August 5:39am Left sided numbness acute August 11, 2024 5:39am Paresthesias acute August 11 025 5:39am Vitamin B12 deficiency acute [facility] 2024 5:39am Hypertension chronic August 11, 025 5:39am [facility] Work Phone: [phone]) 728-296103-09-2025 Evaluation note* Diagnosis Onset Date Resolution Status Admit Date Hypocalcemia acute August 11, 2 025 5:39am Hypokalemia acute August 11 5:39am Hypomagnesemia acute August 11, 2024 5:39am Acute kidney injury superimp osed on CKD inactive August 11, 2024 5:39am BPH loc w urin obs/LUTS inactive [facility] 2024 5:39am Diabetes inactive August 11 5:39am Hypertension inactive August 11, 2 025 5:39am Iron deficiency inactive August 5:39am Left sided numbness inactive August 11, 2024 5:39am Paresthesias inactive August 11, 2 025 5:39am Vitamin B12 deficiency inactive [facility] 2024 5:39am Anemia of renal disease acute [facility] 2024 8:37am Chronic kidney disease, stage 3b acu te August 30, 2024 8:37am 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 acute [facility] 2024 8:37am Hypocalcemia acute August 30, 2024 8:37am Hypokalemia acute August 30 025 8:37am Hypomagnesemia acute August 8:37am Neuropathy acute August 30 8:37am Non compliance w medication regimen acute August 30, 2024 8:37am [facility] Work Phone: 1(122) 215-915903-09-2025 Evaluation note* Diagnosis Onset Date Resolution Status Admit Date Hypocalcemia acute August 11, 025 5:39am Hypokalemia acute August 11 5:39am Hypomagnesemia acute August 11, 2024 5:39am Acute kidney injury superimp osed on CKD inactive August 11, 2024 5:39am BPH loc w urin obs/LUTS inactive [facility] 2024 5:39am Diabetes inactive August 11 5:39am Hypertension inactive August 11 025 5:39am Iron deficiency inactive August 5:39am Left sided numbness inactive August 11, 2024 5:39am Paresthesias inactive August 11 025 5:39am Vitamin B12 deficiency inactive [facility] 2024 5:39am Anemia of renal disease acute [facility] 2024 8:37am Chronic kidney disease, stage 3b acu te August 30, 2024 8:37am 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 acute [facility] 2024 8:37am Hypocalcemia acute August 30, 2024 8:37am Hypokalemia acute August 30 025 8:37am Hypomagnesemia acute August 8:37am Neuropathy acute August 30 8:37am Non compliance w medication regimen acute August 30, 2024 8:37am Chest pain acute October 10, 2024 6:25pm [facility] Work Phone: 1([phone] 280-357703-09-2025 Evaluation note* Diagnosis Onset Date Resolution Status Admit Date Hypocalcemia acute August 11 025 5:39am Hypokalemia acute August 11 5:39am Hypomagnesemia acute August 11, 2024 5:39am Acute kidney injury superimp osed on CKD inactive August 11, 2024 5:39am BPH loc w urin obs/LUTS inactive [facility] 2024 5:39am Diabetes inactive August 11 5:39am Hypertension inactive August 11 025 5:39am Iron deficiency inactive August 5:39am Left sided numbness inactive August 11, 2024 5:39am Paresthesias inactive August 11 025 5:39am Vitamin B12 deficiency inactive [facility] 2024 5:39am Anemia of renal disease acute [facility] 2024 8:37am Chronic kidney disease, stage 3b acu te August 30, 2024 8:37am 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 acute [facility] 2024 8:37am Hypocalcemia acute August 30, 2024 8:37am Hypokalemia acute August 30 8:37am Hypomagnesemia acute August 8:37am Neuropathy acute August 30 8:37am Non compliance w medication regimen acute August 30, 2024 8:37am CAD (coronary artery disease) inacti ve October 10, 2024 6:25pm Chronic kidney disease inactive [place] 2024 6:25pm Chronic obstructive pulmonar y disease, unspecified inactive October 10 6:25pm History of below-knee amputa tion of right lower extremity inactive October 6:25pm Hyperlipidemia inactive October 10 6:25pm Chest pain deleted October 10, 2024 6:25pm [facility] Work Phone: 1(650) 393-566403-09-2025 Evaluation note* Diagnosis Onset Date Resolution Status Admit Date Hypocalcemia acute August 11 025 5:39am Hypokalemia acute August 11 5:39am Hypomagnesemia acute August 11, 2024 5:39am Iron deficiency acute August 5:39am Vitamin B12 deficiency acute [facility] 2024 5:39am Acute kidney injury superimp osed on CKD inactive August 11, 2024 5:39am BPH loc w urin obs/LUTS inactive [facility] 2024 5:39am Diabetes inactive August 11 5:39am Hypertension inactive August 11, 025 5:39am Left sided numbness inactive August 11, 2024 5:39am Paresthesias inactive August 11, 2 025 5:39am Anemia of renal disease acute [facility] 2024 8:37am Chronic kidney disease, stage 3b acu te August 30, 2024 8:37am 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 acute [facility] 2024 8:37am Hypocalcemia acute August 30, 2024 8:37am Hypokalemia acute August 30, 025 8:37am Hypomagnesemia acute August 8:37am Neuropathy acute August 30 8:37am Non compliance w medication regimen acute August 30, 2024 8:37am CAD (coronary artery disease) acute October 10, 2024 6:25pm History of below-knee amputa tion of right lower extremity acute October 6:25pm Chronic kidney disease inactive [place] 2024 6:25pm Chronic obstructive pulmonar y disease, unspecified inactive October 10 6:25pm Hyperlipidemia inactive October 10, 6:25pm Chest pain deleted October 10, 2024 6:25pm Anemia of renal disease acute [facility] 2024 1:08pm CAD (coronary artery disease) acute November 05, 2024 1:08pm Cigarette nicotine dependenc e with nicotine-induced disorder acute [facility] 2024 1:08pm 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 acute 2024 1:08pm History of below-knee amputa tion of right lower extremity acute November 1:08pm Hypocalcemia acute November 05 1:08pm Vitamin D deficiency acute November 05, 2024 1:08pm Anemia of renal disease acute [facility] 2024 4:13pm BMI 34.0-34.9,adult acute November 05, 2024 4:13pm Chronic kidney disease, stage 3b acu te November 05, 2024 4:13pm 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 acute [facility] 2024 4:13pm Gout acute November 05, 2024 4:13pm Hypertensive nephropathy acute November 05, 2024 4:13pm Hypomagnesemia acute November 05, 2024 4:13pm Iron deficiency acute November 05, 2024 4:13pm Vitamin D deficiency acute November 05, 2024 4:13pm BPH loc w urin obs/LUTS inactive [facility] 2024 4:13pm [facility] Work Phone: 1(121) 802-513003-09-2025 Evaluation note* Diagnosis Onset Date Resolution Status Admit Date Hypocalcemia acute August 11 025 5:39am Hypokalemia acute August 11 5:39am Hypomagnesemia acute August 11, 2024 5:39am Acute kidney injury superimp osed on CKD inactive August 11, 2024 5:39am BPH loc w urin obs/LUTS inactive [facility] 2024 5:39am Diabetes inactive August 11 5:39am Hypertension inactive August 11, 025 5:39am Iron deficiency inactive August 5:39am Left sided numbness inactive August 11, 2024 5:39am Paresthesias inactive August 11 025 5:39am Vitamin B12 deficiency inactive [facility] 2024 5:39am Anemia of renal disease acute [facility] 2024 8:37am Chronic kidney disease, stage 3b acu te August 30, 2024 8:37am 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 acute [facility] 2024 8:37am Hypocalcemia acute August 30, 2024 8:37am Hypokalemia acute August 30 025 8:37am Hypomagnesemia acute August 8:37am Neuropathy acute August 30 8:37am Non compliance w medication regimen acute August 30, 2024 8:37am CAD (coronary artery disease) acute October 10, 2024 6:25pm History of below-knee amputa tion of right lower extremity acute October 6:25pm Chronic kidney disease inactive [facility] 2024 6:25pm Chronic obstructive pulmonar y disease, unspecified inactive October 10 6:25pm Hyperlipidemia inactive October 10, 2 025 6:25pm Chest pain deleted October 10, 2024 6:25pm Anemia of renal disease acute J 2024 1:08pm CAD (coronary artery disease) acute November 05, 2024 1:08pm Cigarette nicotine dependenc e with nicotine-induced disorder acute J 2024 1:08pm 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 acute Ju 2024 1:08pm History of below-knee amputa tion of right lower extremity acute November 1:08pm Hypocalcemia acute November 05 1:08pm Vitamin D deficiency acute November 05, 2024 1:08pm [facility] Work Phone: 1(760) 805-898003-09-2025 [place] [address] Hospitalist H&P Signed Patient: Myra Pickard SR MR#: [id number] : 1965 Acct:[id number] Age/Sex: 59 / M Adm Date: 5 Loc: Room: [address] [place] [address] Type: ADM IN Attending Dr: Kevon Viera [...] neck without acute findings -official report pending [facility] Medical History Chronic obstructive pulmonary disease, unspecified [...] mass Atrial fibrillation Atherosclerotic heart disease of [place] coronary artery with unspecified angina pectoris Anxiety Hx of exercise stress test Family history of premature CAD Reports mother had quadruple bypass at age of 45 Myocardial infarction mild Fibromyalgia Chronic back pain Sleep apnea Neuropathy Cataract Peripheral artery disease Hyperlipidemia Diabetes Hypertension Surgical History History of below-knee amputation of right lower extremity 02/2024 [facility] [place]. Simon Hernández Vascular History of [...] 07/12/23[History Confirmed 08/11/24] flash glucose scanning reader ([employer] Jigar 2 [place]) #1 ea 12/28/23 [Rx Confirmed 08/11/24] flash [...] 32 gauge x 5/32 (Comfort EZ Pen [place]) #100 ea 04/15/24 [Rx Confirmed 08/11/24] hydroxyzine [...] 04:15 Lymph % (Auto) N/A 08/11/24 04:15 [place] % (Auto) N/A 08/11/24 04:15 Eos % (Auto) N/A 08/11/24 04:15 Baso % (Auto) N/A 08/11/24 04:15 Nucleat RBC Rel Count N/A 08/11/24 04:15 Neut # (Auto) N/A 08/11/24 04:15 Lymph # (Auto) N/A 08/11/24 04:15 [place] # (Auto) N/A 08/11/24 04:15 Eos # [...] Marge Andino MD 08/11/24 0717 Signed By: 08/11/24723 [facility]03-04-2025 NotePatient Education Urology Orchitis Orchitis is [...] by your health care provider. ??? Take dmnr-ilb-hlrfxqo and prescription medicines only as told by [...] medicines to fight th (more content not included)...[facility]12-23-2024 Hospital Discharge instructions Patient Education 05/27/2024 16:01:01 [...] urethra. Follow these instructions at home: Take zggl-jck-eaznpmb and prescription medicines only as told by [...] provider. Document Revised: 12/08/2021 Document Reviewed: 12/08/2021 [employer] Patient Education 2023 [place]. Follow Up Care 04/01/2024 10:56:08 With:SOLEDAD HERRERA, Yeyo Blum, URL Address: [facility] [address] , [place] [address]- [phone] When: Unknown [facility] 12-23-2024 NotePatient Education Urology Benign Prostatic Hyperplasia [...] Follow these instructions at home: ??? Take vbxj-wyx-wlmkzce and prescription medicines only as told by [...] symptoms do not get (more content not included)...[facility]12-23-2024 Evaluation + Plan note Diagnostic Tests Pending * PSA Total 05/27/24 Future Scheduled Tests Radiology* US PVR Lower EXT Complete Bilat 11/20/23 [facility] 12-03-2024 Evaluation note* Diagnosis Onset Date Resolution Status Admit Date Anemia of renal disease acute D ec2023 4:21pm BMI 34.0-34.9,adult acute Decem rohit 2023 4:21pm BPH loc w urin obs/LUTS acute D ec2023 4:21pm Chronic kidney disease, stag e 3b acute May 07 4:21pm 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 acute De 2023 4:21pm Gout acute May 07, 2024 4:21pm Hypertensive nephropathy acute May 07, 2024 4:21pm Hypomagnesemia acute May 072023 4:21pm [facility] Work Phone: 1([phone]) 879-198511-19-2024 [place] [address] EGD Procedure Note Signed Patient: Myra Pickard SR MR#: [id number] : 1965 Acct:[id number] Age/Sex: 58 / M Adm Date: 4 Loc: Room: Type: [facility] Attending Dr: Mike Burleson MD [...] MD Documented By: Mike Burleson MD 04/23/24 1575 Signed By: 04/23/24 7164 [facility]11-19-2024 [place] [address] Gastroenterology H&P Signed Patient: Myra Pickard SR MR#: [id number] : 1965 Acct:[id number] Age/Sex: 58 / M Adm Date: 4 Loc: Room: Type: [facility] Attending Dr: Mike Burleson MD [...] MD Documented By: Mike Burleson MD 04/23/24 1349 Signed By: 04/23/24 1350 [facility]11-01-2024 Evaluation note* Author Cat Byrd [facility] Authored April 05, 2024 1 :29pm Sooner if needed, the ER if concerns,The above note written by Cat Byrd LPN acting as human recorder, note dictated by Dr. Teresa Lynch [facility] Work Phone: 1([phone]) 522-851210-18-2024 Miscellaneous Notes* Telephone Encounter - Moncho Stevenson - 03/22/2024 11:24 PM EDT Contract: 198 - Re: high Blood Sugars . Called Dr. Tam and connected to caller [facility] Telephone encounter Note* Telephone Encounter - Moncho Stevenson - 03/22/2024 11:24 PM EDT Contract: 198 - Re: high Blood Sugars . Called Dr. Tam and connected to caller [facility]10-15-2024 History of Present illness Narrative* Guero Ines Tam, - 03/19/2024 5:25 PM EDT Patient Name: Myra Pickard Date of : 1965 Date of Service: 03/19/2024 Facility: [facility] Type of Visit: Skilled Visit Subjective Myra Pickard is a 58 y.o. male seen today at intermediate facility for No chief complaint on file. [...] polyneuropathy associated with type 2 diabetes mellitus ([facility]) 2. Encounter for orthopedic aftercare following surgical [...] BY: Guero Tam DO documented [facility] History of Present illness Narrative* Guero Tam DO - 03/15/2024 6:27 PM EDT Patient Name: Myra Pickard Date of : 1965 Date of Service: 03/15/2024 Facility: [facility] Type of Visit: Admission H&P Subjective Myra Pickard is a 58 y.o. male seen today at intermediate facility for admission for therapies. Myra returns to [facility] from [facility] where he was admitted for [...] polyneuropathy associated with type 2 diabetes mellitus ([facility]) 2. Disorientation 3. Other abnormalities of gait and mobility 4. Status post partial amputation of right foot ([facility]) 5. Atherosclerosis of [place] coronary artery of [place] heart without angina pectoris 6. Atrial fibrillation ([facility]) 7. Primary hypertension Admit to [facility] for therapies. Plan to do therapy and then go home in a few weeks. Continue current regimen. Full code. Good rehab potential. ELECTRONICALLY SIGNED BY: Guero Tam DO documented in this [facility]10-11-2024 Miscellaneous Notes* Telephone Encounter - Nancy Kim CMA - 03/15/2024 10:10 AM EDT Patients spouse called in to question about getting a painting manager sock. Stated patient is currently [facility] a care facility. Please advise and call spouse. documented in this [facility]10-11-2024 Telephone encounter Note* Telephone Encounter - Nancy Kim CMA - 03/15/2024 10:10 AM EDT Patients spouse called in to question about getting a painting manager sock. Stated patient is currently isin a care facility. Please advise and call spouse. [facility]10-09-2024 Discharge summary Author Remberto Ervin [facility] March 13, 2024 9:46am Note Date/Time March 13, 2024 9: 46am [facility] [address] [place] [address] Discharge Summary Signed Patient: Myra Pickard SR MR#: [id number] : 1965 Acct:[id number] Age/Sex: 58 / M Adm Date: 4 Loc: Room: [address] [place] [address]: Remberto Ervin MD Copies to: DO Remberto Guzman MD~ Providers Date of Discharge: 03/13/24 Discharging Provider: Remberto Ervin Primary Care Provider: Teresa Lnych Consults: 03/08/24 14:15 Consult to Telemedicine Stat [...] colleague in collaboration with other specialists and customer support technician. Patient came in with a change in [...] ask her primary care doctor to obtain [facility] record entirely to address abnormalities seen on labs and imagingthat I have and have not addressed during this hospitalization, follow-up on pending blood work, imaging and pathology is if available and to follow-up on needed medical care in the outpatient setting. Time Spent with Patient Time spent providing/coordinating discharge services (# min): 45 Discharge Plan Discharge Plan Patient Disposition: Custodial Facility Activity: No Activity Restriction Additional Instructions: I may not have addressed or treated all of your medical illnesses or the abnormal blood work or imaging studies during this hospitalization. Please ask your primary care provider to obtain [facility] records entirely to follow up on all of the abnormal physical, laboratory, and imaging findings that I have not addressed. Please return back to the emergency room or seek medical attention if your symptoms worsen or return. Discharging you from [facility] does not mean that your medical [...] Instructions: As directed (DME) [employer] Jigar 2 [place] Misc See Rx Instructions .ROUTE Qty: 1 [...] 16:02 Blood Culture Stat 03/10/24 06:49 NMDA [C-mzizve-T-Aspartate IgG, Ser] IN AM Preliminary micro results [...] % (Auto) 66.7, Lymph % (Auto) 14.7, [place] % (Auto) 14.4, Eos % (Auto) 3.0, Baso % (Auto) 1.2, Nucleat RBC Rel Count 0.1, Neut # (Auto) 4.0, Lymph # (Auto) 0.9 L, [place] # (Auto) 0.9 H, Eos # (Auto) [...] signed by Remberto Ervin MD> 03/13/24 0946 [facility] Work Phone: 1([phone] 159-602210-08-2024 Progress note Author João Powell [facility] March 12, 2024 1:46pm Note Date/Time March 12, 2024 1: 34pm [facility] [address] [place] [address] Hospitalist Progress Note Signed Patient: Myra Pickard SR MR#: [id number] : 1965 Acct:[id number] Age/Sex: 58 / M Adm Date: 4 Loc: Room: [address] [place] [address] Type: ADM IN Attending Dr: João Powell [...] 03/09/24 22:00 03/11/24 21:41 Duloxetine 30 Mg Capsule.Dr PO 03/09/25 21:59 30 mg QHS SATISH Administration Ferrous Sulfate 324 mg 03/08/24 20:00 03/10/24 21:09 Ferrous Sulfate 324 Mg Tablet.Dr PO 03/08/25 [...] 2 units TID.WM.HS SATISH Administration Protocol Ipratropium [place] 0.5 mg 03/08/24 20:00 03/12/24 09:34 Ipratropium [place] 0.5 Mg/2.5 Ml Vial.Neb INHALATION 03/08/25 19:59 [...] signed by João Powell MD> 03/12/24 1346 [facility] Work Phone: 1([phone] 755-956610-08-2024 Progress note Author Mike Burleson [facility] March 12, 2024 9:28am Note Date/Time March 12, 2024 9: 28am [facility] [address] [place] [address] Gastroenterology PN Signed Patient: Myra Pickard MR#: [id number] : 1965 Acct:[id number] Age/Sex: 58 / M Adm Date: 4 Loc: 3T Room: [address] [place] [address] Type: ADM IN Attending Dr: João Powell [...] 1 units TID.WM.HS SATISH Administration Protocol Ipratropium [place] 0.5 mg 03/08/24 20:00 03/12/24 06:05 Ipratropium [place] 0.5 Mg/2.5 Ml Vial.Neb INHALATION 03/08/25 19:59 [...] 03/15/25 08:59 .5 Ml Pen Injector QWEEK [facility] Ondansetron HCl 4 mg 03/12/24 00:22 [...] <Electronically signed by Mike Burleson MD> 03/12/24927 [facility] Work Phone: 1(722) 791-639410-07-2024 Progress note Author João Powell [facility] March 11, 2024 1:38pm Note Date/Time March 11, 2024 1: 35pm [facility] [address] [place] [address] Hospitalist Progress Note Signed Patient: Myra Pickard MR#: [id number] : 1965 Acct:[id number] Age/Sex: 58 / M Adm Date: 4 Loc: Room: [address] [place] [address] Type: ADM IN Attending Dr: João Powell [...] Insuln.Pen SUBCUT 03/10/25 11:59 Not Given TID.WM.HS [facility] Protocol Ipratropium [place] 0.5 mg 03/08/24 20:00 03/11/24 10:15 Ipratropium [place] 0.5 Mg/2.5 Ml Vial.Neb INHALATION 03/08/25 19:59 [...] <Electronically signed by João Powell MD> 03/11/24 3147 [facility] Work Phone: 1(791) 905-260610-06-2024 Progress note Author Luther [place] [facility] March 10, 2024 11:31am Note Date/Time March 10, 2024 11 :31am [facility] [address] [place] [address] Neurology Progress Note Signed Patient: Myra Pickard SR MR#: [id number] : 1965 Acct:[id number] Age/Sex: 58 / M Adm Date: 4 Loc: 3T Room: [address] [place] [address] Type: ADM IN Attending Dr: João Powell [...] Therapy Recommendations: PT Recommendations PT Recommended Discharge Custodial Facility,Inpatient Rehab Unit Location PT Recommended Services [...] of breathing. He is alert. Oriented to [facility], March. Speech is fluent and nondysarthric. [...] signed by Luther [place] DO> 03/10/24 1131 [facility] Work Phone: 1([phone] Consult note Author Mike Burleson [facility] March 10, 2024 11:29am Note Date/Time March 10, 2024 11 :29am [facility] [address] [place] [address] Gastroenterology Consult Note Signed Patient: Myra Pickard SR MR#: [id number] : 1965 Acct:[id number] Age/Sex: 58 / M Adm Date: 4 Loc: Room: [address] [place] [address] Type: ADM IN Attending Dr: João Powell [...] bruising Allergic/Immunologic Allergic/Immunologic: Denies wheezing [facility] Medical History Vitamin D deficiency Spondylosis of [...] mass Atrial fibrillation Atherosclerotic heart disease of [place] coronary artery with unspecified angina pectoris Anxiety [...] Type: None Social History Comments: at [facility] Meds Medications and Allergies Allergies [...] [History Confirmed 03/08/24] flash glucose scanning reader ([employer] Jigar 2 [place]) #1 ea 12/28/23 [Rx Confirmed 03/08/24] flash [...] % (Auto) 83.4 Lymph % (Auto) 4.9 [place] % (Auto) 10.6 Eos % (Auto) 0.8 Baso % (Auto) 0.3 Nucleat RBC Rel Count 0.2 Neut # (Auto) 11.4 H Lymph # (Auto) 0.7 L [place] # (Auto) 1.5 H Eos # (Auto) [...] MPV Neut % (Auto) Lymph % (Auto) [place] % (Auto) Eos % (Auto) Baso % (Auto) Nucleat RBC Rel Count Neut # (Auto) Lymph # (Auto) [place] # (Auto) Eos # (Auto) Baso # [...] By: <Electronically signed by Mike Burleson MD> 03/10/247 [facility] Work Phone: 1([phone]) 573-398210-06-2024 Progress note Author João Powell [facility] March 10, 2024 10:14am Note Date/Time March 10, 2024 10 :14am [facility] [address] [place] [address] Hospitalist Progress Note Signed Patient: Myra Pickard SR MR#: [id number] : 1965 Acct:[id number] Age/Sex: 58 / M Adm Date: 4 Loc: 3T Room: [address] [place] [address] Type: ADM IN Attending Dr: João Powell [...] IV 03/10/25 09:22 DAILY PRN Hypomagnesemia Ipratropium [place] 0.5 mg 03/08/24 20:00 03/10/24 05:25 Ipratropium [place] 0.5 Mg/2.5 Ml Vial.Neb INHALATION 03/08/25 19:59 [...] signed by João Powell MD> 03/10/24 1014 [facility] Work Phone: 1([phone] Progress note Author João Powell [facility] March 09, 2024 11:32am Note Date/Time March 09, 2024 10 :57am [facility] [address] [place] [address] Hospitalist Progress Note Signed Patient: Myra Pickard SR MR#: [id number] : 1965 Acct:[id number] Age/Sex: 58 / M Adm Date: 4 Loc: 3T Room: [address] [place] [address] Type: ADM IN Attending Dr: João Powell [...] 21:59 5,000 unit Q8HR SATISH Administration Ipratropium [place] 0.5 mg 03/08/24 20:00 03/09/24 09:14 Ipratropium [place] 0.5 Mg/2.5 Ml Vial.Neb INHALATION 03/08/25 19:59 [...] mg 03/09/24 09:00 Pantoprazole 40 Mg Tablet.Dr ZAVALA 03/09/25 08:59 DAILY SATISH Sodium Chloride 0 [...] signed by João Powell MD> 03/09/24 1132 [facility] Work Phone: 1([phone] Consult note Author Job James [facility] March 09, 2024 11:12am Note Date/Time March 09, 2024 11 :10am [facility] [address] [place] [address] Psychiatry Consult Note Signed Patient: Myra Pickard SR MR#: [id number] : 1965 Acct:[id number] Age/Sex: 58 / M Adm Date: 4 Loc: Room: [address] [place] [address] Type : ADM IN Attending Dr: João Powell MD Copies to: MD Teresa Oates,DO Jooã Powell MD~ HPI Consult Date: 03/09/24 Requesting Physician: [...] retaliation Insight: fair Judgment: fair [facility] Medical History Vitamin D deficiency Spondylosis of [...] mass Atrial fibrillation Atherosclerotic heart disease of [place] coronary artery with unspecified angina pectoris Anxiety [...] wrists History of angioplasty left lower extremity 2015,2019 History of colonoscopy 01/25/2019 S/P repair of [...] Type: None Social History Comments: at [facility] Meds Medications and Allergies Allergies [...] [History Confirmed 03/08/24] flash glucose scanning reader ([employer] Jigar 2 [place]) #1 ea 12/28/23 [Rx Confirmed 03/08/24] flash [...] Appearance Clear Urine pH 5.0 Ur Specific [place] 1.013 Urine Protein Negative Urine Glucose (UA) [...] signed by Job James MD> 03/09/24 1112 [facility] Work Phone: 1([phone] 515-257510-05-2024 Consult note Author Luther [place] [facility] March 09, 2024 10:59am Note Date/Time March 09, 2024 9: 07am [facility] [address] [place] [address] Neurology Consult Note Signed Patient: Myra Pickard SR MR#: [id number] : 1965 Acct:[id number] Age/Sex: 58 / M Adm Date: 4 Loc: Room: [address] [place] [address] Type: ADM IN Attending Dr: João Powell MD Copies to: DO Teresa Freeman DO Mohamad Akil, MD~ HPI Consult Date: 03/09/24 Supervisor Laboratory: Luther [place] DO [facility] Medical History Vitamin D deficiency Spondylosis of [...] mass Atrial fibrillation Atherosclerotic heart disease of [place] coronary artery with unspecified angina pectoris Anxiety [...] Type: None Social History Comments: at [facility] Meds Medications and Allergies Allergies [...] [History Confirmed 03/08/24] flash glucose scanning reader ([employer] Jigar 2 [place]) #1 ea 12/28/23 [Rx Confirmed 03/08/24] flash [...] or occlusion. Impression dictated by: Negro Marks Jr. DAlex03/08/2024 2:41 PM Dictation Location: [place] [address] Chest X-Ray 03/08/24 17:03 IMPRESSION: No acute process. Impression dictated by: Sudeep Lind M.D.03/08/2024 6:08 PM Dictation Location: [place] [address] Brain MRI 03/08/24 17:48 IMPRESSION: No acute intracranial process. Impression dictated by: Sudeep Lind M.D.03/08/2024 8:10 PM Dictation Location: [place] [address] Assessment/Plan (1) Altered mental status: Qualifiers: Altered mental status type: unspecified Qualified Code(s): R41.82 - Altered mental status, unspecified Plan CONSULT REASON: Sudden AMS, stroke ruled out HPI: 58-year-old man. History that includes coronary artery disease with PCI, peripheral vascular disease, type 2 diabetes, hypertension, heart failure, diabetic neuropathy, status post recent below the knee amputation at [facility]. He had just been here [...] <Electronically signed by Luther [place] DO> 03/09/24 2720 [facility] Work Phone: 1([phone] 156-156910-05-2024 History and physical note Author João Powell [facility] March 08, 2024 10:05pm Note Date/Time March 08, 2024 7: 19pm [facility] [address] [place] [address] Hospitalist H&P Signed Patient: Myra Pickard SR MR#: [id number] : 1965 Acct:[id number] Age/Sex: 58 / M Adm Date: 4 Loc: Room: [address] [place] [address] Type: ADM IN Attending Dr: João Powell [...] neuropathy status post right BKA recently at [facility], here today for altered mental [...] neck were all negative. ED staff contacted [facility] stroke team and patient was deemed not eligible [place]. Patient is being admitted under the hospitalist [...] Unobtainable due to mental status [facility] Medical History Vitamin D deficiency Spondylosis of [...] mass Atrial fibrillation Atherosclerotic heart disease of [place] coronary artery with unspecified angina pectoris Anxiety [...] Type: None Social History Comments: at [facility] Meds Medications and Allergies Allergies [...] [History Confirmed 03/08/24] flash glucose scanning reader ([employer] Jigar 2 [place]) #1 ea 12/28/23 [Rx Confirmed 03/08/24] flash glucose sensor ([employer] Jigar 2 Sensor kit) #1 ea 12/28/23 [...] % (Auto) 13.1 % (.) 03/08/24 14:15 [place] % (Auto) 13.2 % (.) 03/08/24 14:15 Eos % (Auto) 3.3 % (.) 03/08/24 14:15 Baso % (Auto) 1.0 % (.) 03/08/24 14:15 Nucleat RBC Rel Count 0.2 /100 WBC (0-0.5) 03/08/24 14:15 Neut # (Auto) 6.2 x10E3/uL (1.8-7.7) 03/08/24 14:15 Lymph # (Auto) 1.2 x10E3/uL (1.00-4.8) 03/08/24 14:15 [place] # (Auto) 1.2 x10E3/uL (0.0-0.8) H 03/08/24 [...] pH 5.0 (5.0-9.0) 03/08/24 16:11 Ur Specific [place] 1.013 (1.001-1.030) 03/08/24 16:11 Urine Protein Negative [...] <Electronically signed by João Powell MD> 03/08/24 1793 [facility] Work Phone: 1(572) 575-585810-01-2024 Progress note Author Luther [place] [facility] March 05, 2024 2:28pm Note Date/Time March 05, 2024 2: 22pm [facility] [address] [place] [address] Neurology Progress Note Signed Patient: Myra Pickard SR MR#: [id number] : 1965 Acct:[id number] Age/Sex: 58 / M Adm Date: 4 Loc: Room: [address] [place] [address] Type: ADM IN Attending Dr: João Powell [...] Therapy Recommendations: OT Recommendations OT Recommended Discharge Custodial Facility Location PT Recommendations PT Recommended Discharge Custodial Facility Location PT Recommended Services at Physical [...] By: <Electronically signed by Luther [place] DO> 03/05/241427 [facility] Work Phone: 1(511) 538-525810-01-2024 Progress note Author João Powell [facility] March 05, 2024 2:17pm Note Date/Time March 05, 2024 2: 17pm [facility] [address] [place] [address] Hospitalist Progress Note Signed Patient: Myra Pickard SR MR#: [id number] : 1965 Acct:[id number] Age/Sex: 58 / M Adm Date: 4 Loc: Room: [address] [place] [address] Type: ADM IN Attending Dr: João Powell [...] 1,000 Ml IV 03/03/25 17:59 60 mls/hr .[id number] SATISH Administration Ferric Sodium Gluconate 110 mls @ 110 mls/hr 03/05/24 12:00 03/05/24 13:18 Complex 125 mg/ Sodium IV 03/07/24 09:01 110 mls/hr Chloride QAM SATISH Administration Insulin Aspart 0 units 03/04/24 12:00 03/05/24 11:41 Insulin Aspart 300 Units/3 Ml Insuln.Pen SUBCUT 03/04/25 11:59 Not Given TID.WM.HS SATISH Protocol Ipratropium [place] 0.5 mg 03/04/24 09:00 03/05/24 13:59 Ipratropium [place] 0.5 Mg/2.5 Ml Vial.Neb INHALATION 03/04/25 08:59 [...] 03/05/24 1409 Signed By: <Electronically signed by Jooã Powell MD> 03/05/24 1417 [facility] Work Phone: 1([phone] 324-782810-01-2024 Consult note Author Mike Burleson [facility] March 05, 2024 1:35pm Note Date/Time March 05, 2024 9: 32am [facility] [address] [place] [address] Gastroenterology Consult Note Signed Patient: Myra Pickard SR MR#: [id number] : 1965 Acct:[id number] Age/Sex: 58 / M Adm Date: 4 Loc: Room: [address] [place] [address] Type: ADM IN Attending Dr: João Powell [...] easy bruising and Denies lymphadenopathy [facility] Medical History Vitamin D deficiency Spondylosis of [...] mass Atrial fibrillation Atherosclerotic heart disease of [place] coronary artery with unspecified angina pectoris Anxiety [...] Type: None Social History Comments: at [facility] Meds Medications and Allergies Allergies [...] 12/25/23[Rx Confirmed 03/03/24] flash glucose scanning reader ([employer] Jigar 2 [place]) #1 ea 12/28/23 [Rx Confirmed 03/03/24] flash [...] MPV Neut % (Auto) Lymph % (Auto) [place] % (Auto) Eos % (Auto) Baso % (Auto) Nucleat RBC Rel Count Neut # (Auto) Lymph # (Auto) [place] # (Auto) Eos # (Auto) Baso # [...] MPV Neut % (Auto) Lymph % (Auto) [place] % (Auto) Eos % (Auto) Baso % (Auto) Nucleat RBC Rel Count Neut # (Auto) Lymph # (Auto) [place] # (Auto) Eos # (Auto) Baso # [...] Type Recheck O Positive Antibody Screen Crossmatch ([facility]) 03/04/24 03/05/24 03/05/24 20:45 06:11 06:54 Corrected WBC 8.3 Uncorrected WBC Count 8.3 RBC 3.83 L Hgb 8.6 L Hct 26.8 L MCV 70.1 L MCH 22.4 L MCHC 31.9 L RDW 21.4 H Plt Count 361 MPV 7.9 Neut % (Auto) 67.6 Lymph % (Auto) 16.1 [place] % (Auto) 12.4 Eos % (Auto) 2.8 Baso % (Auto) 1.1 Nucleat RBC Rel Count 0.0 Neut # (Auto) 5.6 Lymph # (Auto) 1.3 [place] # (Auto) 1.0 H Eos # (Auto) [...] 2.8 Albumin/Globulin Ratio 1.2 Vitamin B12 Folate MERGED WITH [facility] 3rd Generation Blood Type Blood Type Recheck Antibody Screen Crossmatch ([facility]) A&P - Gastroenterology Assessment/Plan (1) Anemia: Plan -Iron studies show likely early iron deficiency. The patient is not having any overt GI bleeding and does not need any urgent endoscopic evaluation. -Recommend obtaining prior GI workup from [facility] -I recommend continuing his PPI [...] follow-up with his previous GI team at [facility] Thank you for this consult, little further to add from a GI standpoint. I will peripherally follow pending discharge. Documented By: Mike Burleson MD 03/05/24 0932 Signed By: <Electronically signed by Mike Burleson MD> 03/05/24 0675 [facility] Work Phone: 1(342) [phone] Consult note Author Luther [place] [facility] March 04, 2024 12:57pm Note Date/Time March 04, 2024 12:57pm [facility] [address] [place] [address] Neurology Consult Note Signed Patient: Myra Pickard SR MR#: [id number] : 1965 Acct:[id number] Age/Sex: 58 / M Adm Date: 4 Loc: Room: [address] [place] [address] Type: ADM INOo Attending Dr: João Powell MD Copies to: DO Teresa Freeman DO Mohamad Akil, MD~ HPI Consult Date: 03/04/24 Supervisor Laboratory: Luther [place] DO [facility] Medical History Vitamin D deficiency Spondylosis of [...] mass Atrial fibrillation Atherosclerotic heart disease of [place] coronary artery with unspecified angina pectoris Anxiety [...] Type: None Social History Comments: at [facility] Meds Medications and Allergies Allergies [...] 12/25/23[Rx Confirmed 03/03/24] flash glucose scanning reader ([employer] Jigar 2 [place]) #1 ea 12/28/23 [Rx Confirmed 03/03/24] flash glucose sensor ([employer] Jigar 2 Sensor kit) #1 ea 12/28/23 [...] Sudeep Lind M.D.03/03/2024 3:05 PM Dictation Location: [place] [address] Abdomen/Pelvis CT 03/03/24 14:19 IMPRESSION: No acute findings. Moderate constipation. Impression dictated by: Sudeep Lind M.D.03/03/2024 3:01 PM Dictation Location: [place] [address] 03/03/24 16:59 IMPRESSION: No acute findings. Impression dictated by: Sudeep Lind M.D.03/03/2024 5:50 PM Dictation Location: [place] [address] Assessment/Plan (1) Syncope: Qualifiers: Syncope type: unspecified Qualified Code(s): R55 - Syncope and collapse Plan CONSULT REASON: Syncope HPI: 58-year-old man. Significant bodily vasculopathy, probably secondary to diabetes. History of coronary artery disease requiring percutaneous intervention, peripheral vascular disease, type 2 diabetes, hypertension, severediabetic polyneuropathy, nonhealing right lower extremity wounds now status postright below the knee amputation about 3 weeks ago at [facility]. He was feeling lightheaded every [...] signed by Luther [place] DO> 03/04/24 1257 [facility] Work Phone: 1(331) 285-191109-30-2024 Progress note Author João Powell [facility] March 04, 2024 11:53am Note Date/Time March 04, 2024 11:46am [facility] [address] [place], [place] [address]ist Progress Note Signed Patient: Myra Pickard SR MR#: [id number] : 1965 Acct:[id number] Age/Sex: 58 / M Adm Date: 4 Loc: 3T Room: [address] [place] [address] Type: ADM INOo Attending Dr: João Powell [...] 1,000 Ml IV 03/03/25 17:59 60 mls/hr .[id number] SATISH Administration Sodium Chloride 500 mls @ 20 mls/hr 03/04/24 09:29 0.9 % Sodium Chloride IV 03/05/24 09:28 PROTOCOL PRN BLOOD TRANSFUSION Ipratropium [place] 0.5 mg 03/04/24 09:00 03/04/24 10:47 Ipratropium [place] 0.5 Mg/2.5 Ml Vial.Neb INHALATION 03/04/25 08:59 [...] signed by João Powell MD> 03/04/24 1153 [facility] Work Phone: 1(426) 137-706009-30-2024 History and physical note Author João Powell [facility] March 03, 2024 10:48pm Note Date/Time March 03, 2024 5:55pm [facility] [address] [place] [address] Hospitalist H&P Signed Patient: Myra Pickard SR MR#: [id number] : 1965 Acct:[id number] Age/Sex: 58 / M Adm Date: 4 Loc: Room: [address] [place] [address] Type: ADM INOo Attending Dr: João Powell [...] neuropathy status post right BKA recently at [facility]. He presents today with episodes [...] noted below or in HPI [facility] Medical History Vitamin D deficiency Spondylosis of [...] mass Atrial fibrillation Atherosclerotic heart disease of [place] coronary artery with unspecified angina pectoris Anxiety [...] 12/25/23[Rx Confirmed 03/03/24] flash glucose scanning reader ([employer] Jigar 2 [place]) #1 ea 12/28/23 [Rx Confirmed 03/03/24] flash glucose sensor ([employer] Jigar 2 Sensor kit) #1 ea 12/28/23 [...] % (Auto) 18.2 % (.) 03/03/24 14:00 [place] % (Auto) 11.3 % (.) 03/03/24 14:00 Eos % (Auto) 3.2 % (.) 03/03/24 14:00 Baso % (Auto) 1.7 % (.) 03/03/24 14:00 Nucleat RBC Rel Count 0.2 /100 WBC (0-0.5) 03/03/24 14:00 Neut # (Auto) 4.7 x10E3/uL (1.8-7.7) 03/03/24 14:00 Lymph # (Auto) 1.3 x10E3/uL (1.00-4.8) 03/03/24 14:00 [place] # (Auto) 0.8 x10E3/uL (0.0-0.8) 03/03/24 14:00 [...] pH 5.0 (5.0-9.0) 03/03/24 14:35 Ur Specific [place] 1.009 (1.001-1.030) 03/03/24 14:35 Urine Protein Negative [...] <Electronically signed by João Powell MD> 03/03/24 0711 [facility] Work Phone: 1(672) 424-573609-26-2024 History of Present illness Narrative* Mike Montes [...] up Removal of toshia next week at [facility] and sizing for prosthesis.. [facility] History of Present illness Narrative* Guero Tam DO - 02/28/2024 2:51 PM EDT Patient Name: Myra Pickard Date of : 1965 Date of Service: 02/28/2024 Facility: [facility] Type of Visit: Skilled Visit Subjective Myra Pickard is a 58 y.o. male seen today at intermediate facility for therapy visit. Myra is in [...] polyneuropathy associated with type 2 diabetes mellitus (CMS-HCC) 4. Other abnormalities of gait and mobility 5. Muscle spasm I'm going to add baclofen 10 mg Q6hrs prn spasm. D/C januvia since he is on Trulicity. Continue therapy and other orders as directed. All medications reviewed and are medically necessary. ELECTRONICALLY SIGNED BY: Guero Tam DO documented in this encounter[facility] CenterCab[facility]Go09-20-2024 History of Present illness Narrative* Guero Tam [...] and grafts Fibromyalgia Atherosclerotic heart disease of [place] coronary artery without angina pectoris GERD glaucoma Gout Hyperlipidemia Essential hypertension Migraine Polyneuropathy Obstructive and reflux uropathy RLS Osteoarthritis Dorsalgia Benign prostatic hyperplasia with lower urinary tract symptoms Bilateral carpal tunnel syndrome Heart failure unspecified Nicotine dependence of cigarettes Plan: Admit to [facility] for therapies. continue medications. Full code Renew oxycodone 10 mg Q6hrs prn Good rehab potential. Discharge to home when able to safely discharge documented in this encounterCentral [facility] CenterM[id number] Discharge instructions Patient Education 02/21/2024 14:36:02 [...] to cope with stress. General instructions Take tuku-dgb-sruodfi and prescription medicines only as told by [...] department or: Call your local emergency services (518 in the [place] Call a suicide crisis helpline, such as the National Suicide Prevention Lifeline at or 331 in the [place] This is open 24 hours a day in the [place] Text the Crisis Text Line at 741513 (in the [place] Summary It will take [...] provider. Document Revised: 12/15/2021 Document Reviewed: 10/07/2021 [employer] Patient Education 2023 [place]. Follow Up Care 02/09/2024 10:35:38 With:TERESA LYNCH DO, FAM Address: [address] [place] [address]- When: Unknown With:Mike Montes MD Address: [address] [place] [address]- When:2 weeks Comments:Call for followup appointment [facility] 09-18-2024 NoteDischarge Summary Admission and Discharge Information [...] With When Contact Information TERESA LYNCH DO, [facility] [address] [place] [address]- Additional Instructions: Simon HERRERA, Mike FMary Within 2 weeks [address] [place] [address]- Additional Instructions: Call for followup appointment Patient Education Living [facility]putationUniversity [facility] CenterComment on above:Result Comment: Electronically Signed By: Raulito Gilliland DO.br\Date and Time Signed: 02/21/24 15:01 [id number] Evaluation + Plan noteExtracted from: Title:Discharge Note [...] Contact Information TERESA LYNCH DO, FAM [address] [place] [address]- Additional Instructions: Simon HERRERA, [facility] FMary Within 2 weeks [address] [place] [address]- Additional Instructions: Call for followup appointment Living With an Amputation Extracted from: Title:APSO Note Author:Raulito Gilliland DO Ankur e:02/21/24 Patient is a 58-year-old mal e with past medical history of WI/CAD, heart failure, GERD, HTN, COPD, insulin-dependent type [...] daily to aid in wound healing Ordered: [facility] Hospital Care/Day Straight Fwd 25 Minutes 60668 2. Leukocytosis (D72.829: Elevated white blood cell [...] artery disease (I25.10: Atherosclerotic heart disease of [place] coronary artery without angina pectoris) Aspirin, atorvastatin 80 mg p.o. daily, Plavix Metoprolol, isosorbide mononitrate, Lasix 9. Tobacco abuse (Z72.0: Tobacco use) Counseled on cessation. Nicotine patch. Orders: Capillary Glucose POC CBC w/ Auto Diff Change Attending Extracted from: Title:APSO Note Author:Ben Corrigan III, DO Date:02/20/24 Patient is a 58-year-old mal e with past medical history of WI/CAD, heart failure, GERD, HTN, COPD, insulin-dependent type [...] Auto Diff CBC w/ Auto Diff eGFR [facility] Care/Day Moderate 35 Minutes 72089 2. Leukocytosis (D72.829: Elevated white blood cell count, unspecified) Likely reactive with nausea and vomiting overnight. Will continue to monitor closely. No signs of infection of surgical wound. Follow-up a.m. labs. 3. Essential hypertension (I10: Essential (primary) hypertension) Metoprolol, isosorbide mononitrate, Lasix. Well-controlled. Ordered: [facility] Care/Day Moderate 35 Minutes 67543 4. Hyperlipidemia (E78.5: Hyperlipidemia, unspecified) Statin Ordered: [facility] Care/Day Moderate 35 Minutes 84653 5. Anemia (D64.9: Anemia, unspecified) Acute on chronic. Stable postoperatively. Will continue to monitor closely Ordered: Basic Metabolic Panel CBC w/ Auto Diff [facility] Care/Day Moderate 35 Minutes 55147 6. 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 (E11.42: Type 2 diabetes mellitus with diabetic polyneuropathy) Glimepiride 2 mg p.o. twice daily, glargine 35 units nightly, lispro 5 units with meals, BGT ACHS, sliding scale insulin as needed with meals Poorly controlled. Increased glargine to 35 units nightly om 02/18 from 30 units nightly. Ordered: [facility] Care/Day Moderate 35 Minutes 18538 7. Stage 3 chronic kidney disease (N18.30: Chronic kidney disease, stage 3 unspecified) Creatinine 1.8. Baseline 1.5-1.6. Monitor closely. Ordered: Basic Metabolic Panel CBC w/ Auto Diff eGFR [facility] Care/Day Moderate 35 Minutes 82138 8. Coronary artery disease (I25.10: Atherosclerotic heart disease of [place] coronary artery without angina pectoris) Aspirin, atorvastatin 80 mg p.o. daily, Plavix Metoprolol, isosorbide mononitrate, Lasix Ordered: [facility] Care/Day Moderate 35 Minutes 35860 9. Tobacco abuse (Z72.0: Tobacco use) Counseled on cessation. Nicotine patch. Orders: oxycodone, 10 mg = 2 tab(s), Tab, Oral, q4hr PRN Pain for 5 day(s), Stop date 02/25/24 19:00:00 EDT, Routine, Start date 02/20/24 19:01:00 EDT, 02/20/24 19:01:00 EDT Extracted from: Title:APSO Note Author:Ben Corrigan III, DO Date:02/19/24 Patient is a 58-year-old mal e with past medical history of WI/CAD, heart failure, GERD, HTN, COPD, insulin-dependent type [...] Basic Metabolic Panel CBC w/ Auto Diff [facility] Care/Day Moderate 35 Minutes 97205 2. Essential hypertension (I10: Essential (primary) hypertension) Metoprolol, isosorbide mononitrate, Lasix. Well-controlled. Ordered: [facility] Care/Day Moderate 35 Minutes 22784 3. Hyperlipidemia (E78.5: Hyperlipidemia, unspecified) Statin Ordered: [facility] Care/Day Moderate 35 Minutes 18452 4. Anemia (D64.9: Anemia, unspecified) Acute on chronic. Stable postoperatively. Will continue to monitor closely Ordered: CBC w/ Auto Diff [facility] Care/Day Moderate 35 Minutes 07161 5. 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 (E11.42: Type 2 diabetes mellitus with diabetic polyneuropathy) Glimepiride 2 mg p.o. twice daily, glargine 30 units nightly, lispro 5 units with meals, BGT ACHS, sliding scale insulin as needed with meals Poorly controlled. Will increase glargine to 35 units nightly. Ordered: [facility] Care/Day Moderate 35 Minutes 30762 6. Stage 3 chronic kidney disease (N18.30: Chronic kidney disease, stage 3 unspecified) Creatinine 1.7. Baseline 1.5-1.6. Monitor closely. Ordered: Basic Metabolic Panel [facility] Care/Day Moderate 35 Minutes 86756 7. Coronary artery disease (I25.10: Atherosclerotic heart disease of [place] coronary artery without angina pectoris) Aspirin, atorvastatin [...] artery disease (I25.10: Atherosclerotic heart disease of [place] coronary artery without angina pectoris) continue plavix [...] Pain control PT/OT discharge to rehab Ordered: [facility] Care/Day High 50 Minutes 12423 [facility] Care/Day Moderate 35 Minutes 41849 2. Essential hypertension (I10: Essential (primary) hypertension) good control continue to hold losartan continue lasix and imdur monitor BP Ordered: [facility] Care/Day High 50 Minutes 29639 [facility] Care/Day Moderate 35 Minutes 37220 3. Hyperlipidemia (E78.5: Hyperlipidemia, unspecified) continue statin Ordered: [facility] Care/Day High 50 Minutes 26522 [facility] Care/Day Moderate 35 Minutes 11112 4. Anemia (D64.9: Anemia, unspecified) Acute Blood loss anemia, possibly post surgical loss hgb has remained stable post transfusion continue to monitor CBC today Ordered: [facility] Care/Day High 50 Minutes 35394 [facility] Care/Day Moderate 35 Minutes 36609 5. 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 (E11.42: Type 2 diabetes mellitus with diabetic polyneuropathy) BGL is better controlled today compared to yesterday continue current insulin dose with sliding scale If BGl continues to be elevated during the day today, will start meal time scheduled coverage Ordered: [facility] Care/Day High 50 Minutes 78458 [facility] Care/Day Moderate 35 Minutes 99927 6. Stage 3 chronic kidney disease (N18.30: Chronic kidney disease, stage 3 unspecified) Overall renal function is stable continue to monitor Ordered: [facility] Care/Day High 50 Minutes 28231 [facility] Care/Day Moderate 35 Minutes 80945 7. Coronary artery disease (I25.10: Atherosclerotic heart disease of [place] coronary artery without angina pectoris) On home medication/ continue plavix and statin Ordered: [facility] Care/Day High 50 Minutes 39731 [facility] Care/Day Moderate 35 Minutes 83670 8. Tobacco abuse (Z72.0: Tobacco use) nicotine patch Ordered: [facility] Care/Day High 50 Minutes 91691 [facility] Care/Day Moderate 35 Minutes 66249 Orders: acetaminophen-oxycodone, 2 tab(s), Tab, Oral, [id number], Routine, Start date 02/16/24 14:00:00 EDT heparin, [...] CBC w/ Auto Diff eGFR Path. Review [facility] Care/Day High 50 Minutes 56330 [facility] Care/Day High 50 Minutes 96591 2. Essential hypertension (I10: Essential (primary) hypertension) had to held lasix this morning due to low BP continue other home meds, Imdur, Ordered: Basic Metabolic Panel CBC w/ Auto Diff eGFR Path. Review [facility] Care/Day High 50 Minutes 53850 [facility] Care/Day High 50 Minutes 93824 3. Hyperlipidemia (E78.5: Hyperlipidemia, unspecified) continue statin Ordered: Basic Metabolic Panel CBC w/ Auto Diff eGFR Path. [facility] 50 Minutes 64711 [facility] High 50 Minutes 47113 4. Anemia (D64.9: Anemia, unspecified) hgb is stable post transfusion at 7.6 since patient is stable, will start heparin prophylaxis Ordered: Basic Metabolic Panel CBC w/ Auto Diff eGFR Path. [facility] High 50 Minutes 60480 [facility] Care/Day High 50 Minutes 13378 5. 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 Review [facility] Care/Day High 50 Minutes 30501 [facility] Care/Day High 50 Minutes 19492 6. Stage 3 chronic kidney disease (N18.30: Chronic kidney disease, stage 3 unspecified) stable continue to monitor Ordered: Basic Metabolic Panel CBC w/ Auto Diff eGFR Path. [facility] High 50 Minutes 30289 [facility] Care/Day High 50 Minutes 63495 7. Coronary artery disease (I25.10: Atherosclerotic heart disease of [place] coronary artery without angina pectoris) overall stable continue plavix Ordered: Basic Metabolic Panel CBC w/ Auto Diff eGFR Path. Review [facility] Care/Day High 50 Minutes 15443 [facility] Care/Day High 50 Minutes 59792 8. Tobacco abuse (Z72.0: Tobacco use) nicotine patch Ordered: Basic Metabolic Panel CBC w/ Auto Diff eGFR Path. Review [facility] Care/Day High 50 Minutes 92125 [facility] Care/Day High 50 Minutes 59271 Orders: acetaminophen-oxycodone, 2 tab(s), Tab, Oral, [id number], Routine, Start date 02/16/24 14:00:00 EDT heparin, [...] Diff [facility] Care/Day High 50 Minutes 39363 2. Essential hypertension (I10: Essential (primary) hypertension) good control continue current medications Ordered: Basic Metabolic Panel CBC w/ Auto Diff [facility] Care/Day High 50 Minutes 61380 3. Hyperlipidemia (E78.5: Hyperlipidemia, unspecified) statin Ordered: Basic Metabolic Panel CBC w/ Auto Diff [facility] Care/Day High 50 Minutes 62266 4. Anemia (D64.9: Anemia, unspecified) hgb has remained stable since transfusion hgb is 7.7. i thought it should be higher than than considering that he received 2 units of PRBC. Ordered: Basic Metabolic Panel CBC w/ Auto Diff [facility] Care/Day High 50 Minutes 52224 5. 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 (E11.42: Type 2 diabetes mellitus with diabetic polyneuropathy) BGL is poorly controlled diabetic diet increase lantus to 25 units QHS accucheck achs Ordered: Basic Metabolic Panel CBC w/ Auto Diff [facility] Care/Day High 50 Minutes 48372 6. Stage 3 chronic kidney disease (N18.30: Chronic kidney disease, stage 3 unspecified) overall stable, but noted mild increase in creatinine today contiue to monitor Ordered: Basic Metabolic Panel CBC w/ Auto Diff [facility] Care/Day High 50 Minutes 11694 7. Coronary artery disease (I25.10: Atherosclerotic heart disease of [place] coronary artery without angina pectoris) Plavix for secondary prophylaxis Ordered: Basic Metabolic Panel CBC w/ Auto Diff [facility] Care/Day High 50 Minutes 70852 8. Tobacco abuse (Z72.0: Tobacco use) nicotine patch Ordered: Basic Metabolic Panel CBC w/ Auto Diff [facility] Care/Day High 50 Minutes 92783 Orders: insulin glargine, 25 unit(s), Injection-Insulin, SubCutaneous, [...] dilaudid PT/OT appreciate Vascular team recommendations Ordered: [facility] Care/Day High 50 Minutes 25770 2. Essential hypertension (I10: Essential (primary) hypertension) Better compared to yesterday. continue current management currently on lasix, losartan, metoprolol and imdur. seems to be too much BP meds since BP is about 120s. continue to monitor BP. Ordered: [facility] Care/Day High 50 Minutes 89234 3. Hyperlipidemia (E78.5: Hyperlipidemia, unspecified) continue statin Ordered: [facility] Care/Day High 50 Minutes 29044 4. Anemia (D64.9: Anemia, unspecified) Acute on chronic anemia due to surgical intervention hgb has remained stable since transfusion continue to monitor h and h Ordered: [facility] Care/Day High 50 Minutes 83197 5. 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 continue lantus at current dose continue Jardiance and Glimipiride Ordered: [facility] Care/Day High 50 Minutes 26820 6. Stage 3 chronic kidney disease (N18.30: Chronic kidney disease, stage 3 unspecified) possible due to complication of DM. monitor renal function. creatinine at baseline of 1.9. needs out patient follow up for Nephro recommendation 7. Coronary artery disease (I25.10: Atherosclerotic heart disease of [place] coronary artery without angina pectoris) continue plavix and asa as ordered Orders: acetaminophen-oxycodone, 1 tab(s), Tab, Oral, [id number], Routine, Start date 02/13/24 13:00:00 EDT furosemide, [...] Ordered: [facility] Care/Day High 75 Minutes 42470 2. Essential hypertension (I10: Essential (primary) hypertension) BP on the low side today unsure if this is related to ?Anemia hold Losartan monitor BP, if still low, will bolus. Ordered: [facility] Care/Day High 75 Minutes 96922 3. Hyperlipidemia (E78.5: Hyperlipidemia, unspecified) statin Ordered: [facility] Care/Day High 75 Minutes 51256 4. Anemia (D64.9: Anemia, unspecified) Acute on chronic anemia. acute loss due to post op blood loss transfused 2 units of PRBC today. continue to monitor will hold asa and plavix for now and resume when Anemia improves or stabilized Also hold off on anticoagulation until anemia stabilizes can do scd on left leg Ordered: [facility] Care/Day High 75 Minutes 74133 5. 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 (E11.42: Type 2 diabetes mellitus with diabetic polyneuropathy) poorly controlled diabetic diet continue glimipiride, lantus and januvia Monitor BGL and treate with sliding scale as needed Ordered: [facility] Care/Day High 75 Minutes 78342 Orders: acetaminophen-oxycodone, 1 tab(s), Tab, Oral, [id number]-[id number], Routine, Start date 02/13/24 13:00:00 EDT amitriptyline, [...] Patient Hypoglycemia Protocol Unresponsive Patient Extracted from: Title:ELANA Post Op - General Author:MD Solomon Ahmad F Date:02/12/24 Plan Transfer/Discharge: Transfer/Discharge Discharge when meets criteria ( To home ). Extracted from: Title:[facility] Pre Op - Adult General Author:Zachary morrow MD, Ahmad F Date:02/12/24 Plan [place] [employer] (ASA) physical status classification: [...] US PVR Lower EXT Complete Bilat 11/20/23 [facility] 09-18-2024 NotePeripheral smear evaluation:[facility] CenterComment on above:Performed By: #### [id number] #### [facility] [address], [place] [id number] NoteProgress Note-Physician Assessment/Plan Patient is a 58-year-old male with past medical history of WI/CAD, heart failure, GERD, HTN, COPD, insulin-dependent type [...] daily to aid in wound healing Ordered: [facility]Day Straight Fwd 25 Minutes 75628 2. Leukocytosis (D72.829: Elevated white blood cell [...] artery disease (I25.10: Atherosclerotic heart disease of [place] coronary artery withoutangina pectoris) ? Aspirin, atorvastatin [...] Lymph Auto: 12.4 % Low (02/21/24 06:02:00) [place] Auto: 8.7 % (02/21/24 06:02:00) Eos Auto: 3.6 % (02/21/24 06:02:00) Basophil Auto: 0.7 % (02/21/24 06:02:00) Neutro Absolute: 9.3 E9/L High (02/21/24 06:02:00) Lymph Absolute: 1.5 E9/L (02/21/24 06:02:00) [place] Absolute: 1.1 E9/L High (02/21/24 06:02:00) Eos [...] High (02/21/24 10:49: (more content not included)... [facility] CenterComment on above:Result Comment: Electronically Signed By: Raulito Gilliland DO\.br\Date and Time Signed: 02/21/24 10:56 EDT 02-20-2024 NoteProgress Note-Physician Assessment/Plan Patient is a 58-year-old male with past medical history of WI/CAD, heart failure, GERD, HTN, COPD, insulin-dependent type [...] eGFR [facility] Care/Day Moderate 35 Minutes 09496 2. Leukocytosis (D72.829: Elevated white blood cell count, unspecified) ? Likely reactive with nausea and vomiting overnight. Will continue to monitor closely. No signs ofinfection of surgical wound. Follow-up a.m. labs. 3. Essential hypertension (I10: Essential (primary) hypertension) ? Metoprolol, isosorbide mononitrate, Lasix. Well-controlled. Ordered: [facility] Care/Day Moderate 35 Minutes 97935 4. Hyperlipidemia (E78.5: Hyperlipidemia, unspecified) ? Statin Ordered: [facility] Care/Day Moderate 35 Minutes 58363 5. Anemia (D64.9: Anemia, unspecified) ? Acute on chronic. Stable postoperatively. Will continue to monitor closely Ordered: Basic Metabolic Panel CBC w/ Auto Diff [facility] Care/Day Moderate 35 Minutes 14770 6. 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 Glimepiride 2 mg p.o. twice daily, glargine 35 units nightly, lispro 5 units with meals, BGT ACHS, sliding scale insulin as needed with meals ?Poorly controlled. Increased glargine to 35 units nightly om 02/18 from 30 units nightly. Ordered: [facility] Care/Day Moderate 35 Minutes 96898 7. Stage 3 chronic kidney disease (N18.30: Chronic kidney disease, stage 3 unspecified) ? Creatinine 1.8. Baseline 1.5-1.6. Monitor closely. Ordered: Basic Metabolic Panel CBC w/ Auto Diff eGFR [facility] Care/Day Moderate 35 Minutes 52540 8. Coronary artery disease (I25.10: Atherosclerotic heart disease of [place] coronary artery withoutangina pectoris) ? Aspirin, atorvastatin 80 mg p.o. daily, Plavix ? Metoprolol, isosorbide mononitrate, Lasix Ordered: [facility] Care/Day Moderate 35 Minutes 72266 9. Tobacco abuse (Z72.0: Tobacco use) ? [...] the indicated time period. (more content not included)...[facility] CenterComment on above:Result Comment: Electronically Signed By: Ben Corrigan III, DO\Date and Time Signed: 02/20/24 19:09 [id number] NoteProgress Note-Physician Assessment/Plan Patient is a 58-year-old male with past medical history of WI/CAD, heart failure, GERD, HTN, COPD, insulin-dependent type [...] Basic Metabolic Panel CBC w/ Auto Diff [facility] Care/Day Moderate 35 Minutes 26461 2. Essential hypertension (I10: Essential (primary) hypertension) ? Metoprolol, isosorbide mononitrate, Lasix. Well-controlled. Ordered: [facility] Care/Day Moderate 35 Minutes 76553 3. Hyperlipidemia (E78.5: Hyperlipidemia, unspecified) ? Statin Ordered: [facility] Care/Day Moderate 35 Minutes 42793 4. Anemia (D64.9: Anemia, unspecified) ? Acute on chronic. Stable postoperatively. Will continue to monitor closely Ordered: CBC w/ Auto Diff [facility] Care/Day Moderate 35 Minutes 59245 5. 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 Glimepiride 2 mg p.o. twice daily, glargine 30 units nightly, lispro 5 units with meals, BGT ACHS, sliding scale insulin as needed with meals ?Poorly controlled. Will increase glargine to 35 units nightly. Ordered: [facility] Care/Day Moderate 35 Minutes 58585 6. Stage 3 chronic kidney disease (N18.30: Chronic kidney disease, stage 3 unspecified) ? Creatinine 1.7. Baseline 1.5-1.6. Monitor closely. Ordered: Basic Metabolic Panel [facility] Care/Day Moderate 35 Minutes 23828 7. Coronary artery disease (I25.10: Atherosclerotic heart disease of [place] coronary artery withoutangina pectoris) ? Aspirin, atorvastatin [...] Exam General: alert, no (more content not included)...[facility] Comment on above:Result Comment: Electronically Signed By: Ben Corrigan III, DO\Date and Time Signed: 02/19/24 17:00 [id number] NoteProgress Note-Physician Patient: MYRA PICKARD SR Age: 58 years Sex: Male : 1965 Associated Diagnoses: None Author: MD Juanito, Laura Rodriguez Postoperative Information Postoperative disposition: Postoperative disposition: To PACU. Optimetrix number: Optimetrix number [id number]. Anesthetic utilized: General. Health Status Allergies: Allergic [...] Discharge when meets criteria ( To home ).[facility] CenterComment on above:Result Comment: Electronically Signed By: [...] mg oral tablet: 2 tab(s), Tab, Oral, [id number], Routine, Start date 02/16/24 14:00:00 EDT Plavix [...] cap(s), Oral, B (more content not included)... [facility] CenterComment on above:Result Comment: Electronically Signed By: [...] artery disease (I25.10: Atherosclerotic heart disease of [place] coronary artery withoutangina pectoris) continue plavix as [...] mg/dL High (02/18/24 11:32:00) POC Device SN: [id number] (02/18/24 11:32:00) POC User ID: [id number] (02/18/24 11:32:00) POC Username: RAJESH OSEGUERA (02/18/24 11:32:00) Problem List/Past Medical History Ongoing Arthritis Asthma BPH with obstruction/lower urinary tract symptoms COPD type A Fibromyalgia Gross hematuria Head ache Heart attack Heart disease Heart murmur Hyperlipidemia Orchitis Restless leg Smoker Urinary retention Historical CHF (congestive heart failure) GERD [Gastroesophageal reflux disease] HTN [Hypertension] WI (myocardial infarction) NIDDM Medications Inpatient acetaminophen 325 [...] mg-325 mg oral tablet, 2 tab(s), Oral, [id number] Plavix 75 mg Tab, 75 mg= 1 tab(s), Oral, Daily polyethylene glycol 335 (more content not included)...[facility] CenterComment on above:Result Comment: Electronically Signed By: Marisela HERRERA, Elan Robbins\.br\Date and Time Signed: 02/18/24 13:45 [id number] NoteProgress Note-Physician Assessment/Plan Goal: 1. Aggressive bowel regimen as ordered 2. Monitor hgb 3. Monitor BGL, better controlled but still elevated. DVT prophylaxis with heparin if tolerated. 1. 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 Essential hypertension (I10: Essential (primary) hypertension) good control continue to hold losartan continue lasix and imdur monitor BP Ordered: [facility] Care/Day High 50 Minutes 66621 [facility] Care/Day Moderate 35 Minutes 67767 3. Hyperlipidemia (E78.5: Hyperlipidemia, unspecified) continue statin Ordered: [facility] Care/Day High 50 Minutes 36750 [facility] Care/Day Moderate 35 Minutes 53459 4. Anemia (D64.9: Anemia, unspecified) Acute Blood loss anemia, possibly post surgical loss hgb has remained stable post transfusion continue to monitor CBC today Ordered: [facility] Care/Day High 50 Minutes [id number] [facility] Care/Day Moderate 35 Minutes 69709 5. 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 (E11.42: Type 2 diabetes mellitus with diabetic polyneuropathy) BGL is better controlled today compared to yesterday continue current insulin dose with sliding scale If BGl continues to be elevated during the day today, will start meal time scheduled coverage Ordered: [facility] Care/Day High 50 Minutes 69423 [facility] Care/Day Moderate 35 Minutes 65668 6. Stage 3 chronic kidney disease (N18.30: Chronic kidney disease, stage 3 unspecified) Overall renal function is stable continue to monitor Ordered: [facility] Care/Day High 50 Minutes 27229 [facility] Care/Day Moderate 35 Minutes 35201 7. Coronary artery disease (I25.10: Atherosclerotic heart disease of [place] coronary artery withoutangina pectoris) On home medication/ continue plavix and statin Ordered: [facility] Care/Day High 50 Minutes 32273 [facility] Care/Day Moderate 35 Minutes 94615 8. Tobacco abuse (Z72.0: Tobacco use) nicotine patch Ordered: [facility] Care/Day High 50 Minutes 92942 [facility] Care/Day Moderate 35 Minutes 61464 Orders: acetaminophen-oxycodone, 2 tab(s), Tab, Oral, [id number], Routine, Start date 02/16/24 14:00:00 EDT heparin, [...] (02/17/24 07:49:00) POC Dev (more content not included)...[facility] CenterComment on above:Result Comment: Electronically Signed By: Marisela HERRERA, Elan Humphrey.br\Date and Time Signed: 02/17/24 10:36 [id number] NoteProgress Note-Physician Assessment/Plan Goals: 1. 2 time [...] [facility]/Day High 50 Minutes 02187 [facility]/Day High 50 Minutes 71174 2. Essential hypertension (I10: Essential (primary) hypertension) had to held lasix this morning due to low BP continue other home meds, Imdur, Ordered: Basic Metabolic Panel CBC w/ Auto Diff eGFR Path. [facility]Day High 50 Minutes 35238 [facility] 50 Minutes 77585 3. Hyperlipidemia (E78.5: Hyperlipidemia, unspecified) continue statin Ordered: Basic Metabolic Panel CBC w/ Auto Diff eGFR Path. Review [facility]/Day High 50 Minutes 76313 [facility] Care/Day High 50 Minutes 68950 4. Anemia (D64.9: Anemia, unspecified) hgb is stable post transfusion at 7.6 since patient is stable, will start heparin prophylaxis Ordered: Basic Metabolic Panel CBC w/ Auto Diff eGFR Path. [facility]/Day High 50 Minutes 89579 [facility] High 50 Minutes 26058 5. 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 Review [facility] Care/Day High 50 Minutes 87086 [facility] Care/Day High 50 Minutes 63624 6. Stage 3 chronic kidney disease (N18.30: Chronic kidney disease, stage 3 unspecified) stable continue to monitor Ordered: Basic Metabolic Panel CBC w/ Auto Diff eGFR Path. Review [facility] Care/Day High 50 Minutes 78640 [facility] Care/Day High 50 Minutes 61643 7. Coronary artery disease (I25.10: Atherosclerotic heart disease of [place] coronary artery withoutangina pectoris) overall stable continue plavix Ordered: Basic Metabolic Panel CBC w/ Auto Diff eGFR Path. Review [facility] Care/Day High 50 Minutes 53919 [facility] Care/Day High 50 Minutes 35067 8. Tobacco abuse (Z72.0: Tobacco use) nicotine patch Ordered: Basic Metabolic Panel CBC w/ Auto Diff eGFR Path. Review [facility] Care/Day High 50 Minutes 31837 [facility] Care/Day High 50 Minutes 09617 Orders: acetaminophen-oxycodone, 2 tab(s), Tab, Oral, [id number], Routine, Start date 02/16/24 14:00:00 EDT heparin, [...] no adenopathy, no tenderness (more content not included)...[facility] CenterComment on above:Result Comment: Electronically Signed By: Marisela HERRERA, Elan Humphrey.br\Date and Time Signed: 02/16/24 13:30 [id number] NotePath ReviewPeripheral smear evaluation: - Moderate microcytic and hypochromic anemia with anisopoikilocytosis. - White blood cell and Platelet: Unremarkable. Comment: Recommend clinical correlation and rule out iron deficiency anemia. CPT: 13001 Blair Blood MD 02/21/2024 12:59:29 EDT *NA* (02/16/24 6:12 AM)[facility] Danielle 09-12-2024 NoteProgress Note-Physician Assessment/Plan Goal: 1. [...] Diff [facility] Care/Day High 50 Minutes 75840 2. Essential hypertension (I10: Essential (primary) hypertension) good control continue current medications Ordered: Basic Metabolic Panel CBC w/ Auto Diff [facility] Care/Day High 50 Minutes 36534 3. Hyperlipidemia (E78.5: Hyperlipidemia, unspecified) statin Ordered: Basic Metabolic Panel CBC w/ Auto Diff [facility]/Day High 50 Minutes 49987 4. Anemia (D64.9: Anemia, unspecified) hgb has remained stable since transfusion hgb is 7.7. i thought it should be higher than than considering that he received 2 units of PRBC. Ordered: Basic Metabolic Panel CBC w/ Auto Diff [facility]/Day High 50 Minutes 77810 5. 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 (E11.42: Type 2 diabetes mellitus with diabetic polyneuropathy) BGL is poorly controlled diabetic diet increase lantus to 25 units QHS accucheck achs Ordered: Basic Metabolic Panel CBC w/ Auto Diff [facility]/Day High 50 Minutes 99245 6. Stage 3 chronic kidney disease (N18.30: Chronic kidney disease, stage 3 unspecified) overall stable, but noted mild increase in creatinine today contiue to monitor Ordered: Basic Metabolic Panel CBC w/ Auto Diff [facility]/Day High 50 Minutes 21399 7. Coronary artery disease (I25.10: Atherosclerotic heart disease of [place] coronary artery withoutangina pectoris) Plavix for secondary prophylaxis Ordered: Basic Metabolic Panel CBC w/ Auto Diff [facility]/Day High 50 Minutes 18226 8. Tobacco abuse (Z72.0: Tobacco use) nicotine patch Ordered: Basic Metabolic Panel CBC w/ Auto Diff [facility] High 50 Minutes 28040 Orders: insulin glargine, 25 unit(s), Injection-Insulin, SubCutaneous, [...] Hct: 22.2 % Low (more content not included)...[facility] CenterComment on above:Result Comment: Electronically Signed By: Marisela HERRERA, Elan Robbins\.br\Date and Time Signed: 02/15/24 13:28 [id number] NoteInterdisciplinary Note - PT PT Evaluation completed with an [facility] score of 16/24. Pt was able to perform bed mobility with Mod I and transfers with CGA/Min A. Pt was able to ambulate 4 feet with FWW, but does fatigue easily. Ptdoes report increased pain in right stump, but still maintained activity well. Pt will need furtherrehabilitation SNF in order to return home again safelyUniversity [facility]09-11-2024 NoteProgress Note-Physician Assessment/Plan 1. 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 due to poor pain control, I discontinued IV morphine and switched to IV dilaudid PT/OT appreciate Vascular team recommendations Ordered: [facility] Care/Day High 50 Minutes 46910 2. Essential hypertension (I10: Essential (primary) hypertension) Better compared to yesterday. continue current management currently on lasix, losartan, metoprolol and imdur. seems to be too much BP meds since BP is about 120s. continue to monitor BP. Ordered: [facility] Care/Day High 50 Minutes 14041 3. Hyperlipidemia (E78.5: Hyperlipidemia, unspecified) continue statin Ordered: [facility] Care/Day High 50 Minutes 10798 4. Anemia (D64.9: Anemia, unspecified) Acute on chronic anemia due to surgical intervention hgb has remained stable since transfusion continue to monitor h and h Ordered: [facility] Care/Day High 50 Minutes 02816 5. 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 continue lantus at current dose continue Jardiance and Glimipiride Ordered: [facility] Care/Day High 50 Minutes 31673 6. Stage 3 chronic kidney disease (N18.30: Chronic kidney disease, stage 3 unspecified) possible due to complication of DM. monitor renal function. creatinine at baseline of 1.9. needs out patient follow up for Nephro recommendation 7. Coronary artery disease (I25.10: Atherosclerotic heart disease of [place] coronary artery withoutangina pectoris) continue plavix and asa as ordered Orders: acetaminophen-oxycodone, 1 tab(s), Tab, Oral, [id number], Routine, Start date 02/13/24 13:00:00 EDT furosemide, [...] Extremities: right BKA Debbie (more content not included)...[facility] CenterComment on above: Result Comment: Electronically Signed By: Marisela HERRERA, Elan Robbins\.br\Date and Time Signed: 02/14/24 09:57 [id number] NoteProgress Note-Physician Assessment/Plan 1. 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 appreciate additional recommendation from Vascular team Ordered: [facility] Care/Day High 75 Minutes 03279 2. Essential hypertension (I10: Essential (primary) hypertension) BP on the low side today unsure if this is related to ?Anemia hold Losartan monitor BP, if still low, will bolus. Ordered: [facility]/Day High 75 Minutes 96879 3. Hyperlipidemia (E78.5: Hyperlipidemia, unspecified) statin Ordered: [facility] Care/Day High 75 Minutes 86505 4. Anemia (D64.9: Anemia, unspecified) Acute on chronic anemia. acute loss due to post op blood loss transfused 2 units of PRBC today. continue to monitor will hold asa and plavix for now and resume when Anemia improves or stabilized Also hold off on anticoagulation until anemia stabilizes can do scd on left leg Ordered: [facility]/Day High 75 Minutes 14650 5. 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 (E11.42: Type 2 diabetes mellitus with diabetic polyneuropathy) poorly controlled diabetic diet continue glimipiride, lantus and januvia Monitor BGL and treate with sliding scale as needed Ordered: [facility] Care/Day High 75 Minutes 26116 Orders: acetaminophen-oxycodone, 1 tab(s), Tab, Oral, [id number], Routine, Start date 02/13/24 13:00:00 EDT amitriptyline, [...] is now interested in going to [facility] to get PT to enable him be [...] Back: No tenderness, Luzmaria (more content not included)...[facility] CenterComment on above:Result Comment: Electronically Signed By: Marisela HERRERA, Elan Humphrey.nile\Date and Time Signed: 02/13/24 12:25 [id number] NoteHistory and Physical History of Present Illness [...] mg/dL High (02/12/24 17:15:00) POC Device SN: [id number] (02/12/24 17:15:00) POC User ID: [id number] (02/12/24 17:15:00) POC Username: POC Username (02/12/24 [...] a day (at bedti (more content not included)...[facility] CenterComment on above:Result Comment: Electronically Signed By: Marisela HERRERA, Elan Humphrey.br\Date and Time Signed: 02/12/24 18:34 [id number] Evaluation + Plan note* Assessment & Plan Note - Mike Montes MD - 01/18/2024 9:04 AM EDTAssociated Problem(s): Cigarette smoker Counseled him on smoking cessation at length. He is willing to quit. [facility]08-15-2024 Miscellaneous Notes* Assessment & Plan Note - Mike Montes MD - 01/18/2024 9:04 AM EDTAssociated Problem(s): Cigarette smoker Counseled him on smoking cessation at length. He is willing to quit. * Assessment & Plan Note - Mike Montes MD - 01/18/2024 9:03 AM EDT Associated Problem(s): 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 ([facility]) Right below-knee amputation. Will do it here at [place]. 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 Will do it here at [place]. [facility]08-15-2024 History of Present illness Narrative* Mike Montes [...] control exposed bone. The patient and his drill hand are sending him for below-knee amputation. We [...] 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 ([facility]) Diabetes mellitus type 2, controlled ([facility]) GERD (gastroesophageal reflux disease) Hyperlipidemia Hypertension Past Surgical History: Past Surgical History: Procedure Laterality Date AMPUTATION FOOT / TOE Right 09/29/2023 APPENDECTOMY BYPASS ARTERY FEMORAL POPLITEAL Right 11/08/2023 Performed by Mike Montes MD at [facility] SPECIAL PROC CARDIAC CATHETERIZATION x4 heart stents COLONOSCOPY PROSTATE SURGERY SPINE SURGERY Vascular Invasive Right lower extremity angiogram with intervention/stent Right 11/07/2023 Performed by Mike Montes MD at [facility] CARDIAC CATH LABS Social and Family [...] below-knee amputation. Will do it here at [place]. Myra was seen today for angioplasty rle follow up - procedure at [facility]. yolanda and critical limb ischemia of [...] you for your understanding. documented in this encounterK[facility]08-15-2024 Instructions* Patient Instructions* Mike Montes MD - 01/18/2024 8:50 AM EDT Are You Ready To Kick The Habit? Free Tobacco Cessation Resources [facility] Services [facility] Tobacco Treatment [facility] provide all employees with free tobacco cessation services that include: Counseling to understand nicotine addiction Education about medications that can help you successfully quit Assistance with developing a plan to quit Call to set up an individual appointment or find out when group classes will be held: [facility]: [phone] [facility]: [phone] [facility]: [phone] [facility]: [phone] Quit Smoking Action Plan and Resources [facility] offers an eight-week, online smoking cessation plan to all [facility] employees, regardless of whether [place] is your medical insurance provider. Go to [email or web address] and click the Health Risk Assessment and Resources link to get started. In the ScanSafe menu, click Action Plans instead of Health Risk Assessment to access the Quit Smoking Action Plan. Additional smoking cessation resources are also available to all [facility] employees on the V[employer] web page at [email or web address]. [place] Tobacco Cessation Program If [place] is your medical insurance provider, there are more free resources available to you, including: No copays or deductibles on local tobacco cessation counseling services to help you quit Prescription assistance for tobacco cessation medications to help you quit For details about the tobacco cessation program available to [place] members, go to www.Intellitix.Conyac (Search: Tobacco Cessation Program). [place] Tobacco Quit Line 3-140-MGNB-NOW ( ) is a toll-free, telephonic service that helps [place] residents quit smoking and using tobacco. It is staffed by experts who tailor a quit plan for you and provide you with advice. [place] Tobacco Quit Line 4-853-PGAV-NOW ( ) is a toll-free, telephonic service that helps [place] residents quit smoking and using tobacco. It is staffed by experts who tailor a quit plan for you and provide you with advice. Two weeks of nicotine replacement therapy may be provided at no charge, if needed. Additional Resources These national organizations also offer free information and resources to help you quit tobacco: [place] [employer]--www.cancer.org/healthy/stayawayfromtobacco [place] [employer]--www.heart.org (Search: Quit Smoking) Centers for Disease Control and Prevention--www.cdc.gov/tobacco [place] [employer]--www.lungusa.org documented in this encounterCentral Vermont Medical CenterThe Film Co [id number] NotePatient Education - Text [place], [place] Cardiovascular PCI DISCHARGE INSTRUCTIONS Diet: ? [...] for any reason without talking to your malt house supervisor Site Care: ? Do not remove dressing [...] you are interested in smoking cessation, contact [facility] at [phone], ext. [phone]. ? In the event you are unable to reach your physician, please call [facility] at [phone] andthe sandwich machine operator will assist you. Seek Medicare [...] your urine or stool ? 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 He has some residual tibial occlusive disease. I discussed with him doing right lower extremity angiogram and intervention. Will do this close to home at [facility]. 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 He has some residual tibial occlusive disease. I discussed with him doing right lower extremity angiogram and intervention. Will do this close to home at [facility]. documented in this encounterKettering Health [facility]07-18-2024 History of Present illness Narrative* Mike Montes [...] 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 ([facility]) Diabetes mellitus type 2, controlled ([facility]) GERD (gastroesophageal reflux disease) Hyperlipidemia Hypertension Past Surgical History: Past Surgical History: Procedure Laterality Date AMPUTATION FOOT / TOE Right 09/29/2023 APPENDECTOMY BYPASS ARTERY FEMORAL POPLITEAL Right 11/08/2023 Performed by Mike Montes MD at [facility] SPECIAL PROC CARDIAC CATHETERIZATION x4 heart stents COLONOSCOPY PROSTATE SURGERY SPINE SURGERY Vascular Invasive Right lower extremity angiogram with intervention/stent Right 11/07/2023 Performed by Mike Montes MD at [facility] CARDIAC CATH LABS Social and Family [...] 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 ([facility]) - Primary Current Assessment & Plan We did iliofemoral endarterectomy and femoral above-knee bypass. He has some residual tibial occlusive disease. I discussed with him doing right lower extremity angiogram and intervention. Will do this close to home at [facility]. 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 documented in this encounterKettering Health [facility]06-27-2024 History of Present illness Narrative* Guero G Anel, DO - 11/30/2023 11:10 PM EDT Patient Name: Myra Pickard Date of : 1965 Date of Service: 11/30/2023 Facility: [facility] Type of Visit: Skilled Visit Subjective Myra Pickard is a 58 y.o. male seen today at intermediate facility for therapy visit. Myra is in [...] Exam Vitals reviewed. Exam conducted with a blood and plasma laboratory assistant present (). Constitutional: General: He is not [...] BY: Guero Tam DO documented in this encounterKettering Health [facility]06-27-2024 Evaluation + Plan note* Assessment & Plan Note - Mike Montes MD - 11/30/2023 9:19 AM EDT Associated Problem(s): Cigarette smoker motivated to quit Counseled on smoking cessation for at least 3 minutes [facility]06-27-2024 Miscellaneous Notes* Assessment & Plan Note - Mike Montes MD - 11/30/2023 9:19 AM EDTAssociated Problem(s): Cigarette smoker motivated to quit Counseled on smoking cessation for at least 3 minutes documented in this encounterKettering [facility]06-27-2024 History of Present illness Narrative* Mike Montes [...] 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 ([facility]) Cigarette smoker motivated to quit Plan Plan [...] Mike Montes MD, BG documented in this encounterKettering Health [facility]06-27-2024 Instructions* Patient Instructions* Mike Montes MD - 11/30/2023 8:50 AM EDT Are You Ready To Kick The Habit? Free Tobacco Cessation Resources [facility] Services [facility] Centers provide all employees with free tobacco cessation services that include: Counseling to understand nicotine addiction Education about medications that can help you successfully quit Assistance with developing a plan to quit Call to set up an individual appointment or find out when group classes will be held: [facility]: [phone] [facility]: [phone] [facility]: [phone] [facility]: [phone] Quit Smoking Action Plan and Resources [facility] offers an eight-week, online smoking cessation plan to all [facility] employees, regardless of whether [place] is your medical insurance provider. Go to [email or web address] and click the Health Risk Assessment and Resources link to get started. In the ScanSafe menu, click Action Plans instead of Health Risk Assessment to access the Quit Smoking Action Plan. Additional smoking cessation resources are also available to all [facility] employees on the Npmhr5Lsaxaq web page at [email or web address].Reciclata/quitsmoking. [place] Tobacco Cessation Program If [place] is your medical insurance provider, there are more free resources available to you, including: No copays or deductibles on local tobacco cessation counseling services to help you quit Prescription assistance for tobacco cessation medications to help you quit For details about the tobacco cessation program available to [place] members, go to www.Reciclata (Search: Tobacco Cessation Program). [place] Tobacco Quit Line 0-399-MDBV-NOW ( ) is a toll-free, telephonic service that helps [place] residents quit smoking and using tobacco. It is staffed by experts who tailor a quit plan for you and provide you with advice. [place] Tobacco Quit Line 7-571-NEQI-NOW ( ) is a toll-free, telephonic service that helps [place] residents quit smoking and using tobacco. It is staffed by experts who tailor a quit plan for you and provide you with advice. Two weeks of nicotine replacement therapy may be provided at no charge, if needed. Additional Resources These national organizations also offer free information and resources to help you quit tobacco: [place] [employer]--www.cancer.org/healthy/stayawayfromtobacco [place] [employer]--www.heart.org (Search: Quit Smoking) Centers for Disease Control and Prevention--www.cdc.gov/tobacco [place] Lung [employer]--www.lungusa.org documented in this encounterK[facility]06-21-[facility] History of Present illness Narrative* Guero Harrisasim, DO - 11/24/2023 6:57 PM EDT Patient Name: Myra Pickard Date of : 1965 Date of Service: 11/24/2023 Facility: [facility] Type of Visit: Skilled Visit Subjective Myra Pickard is a 58 y.o. male seen today at intermediate facility for therapy visit. Myra is in therapy. He is hoping to be allowed to wt bear on his right foot. His called the drill hand to ask to be allowed to wt [...] Exam Vitals reviewed. Exam conducted with a blood and plasma laboratory assistant present (). Constitutional: General: He is not [...] Status post partial amputation of right foot ([facility]) 2. Other abnormalities of gait and mobility 3. Leg edema 4. Primary hypertension 5. Hypotension due to drugs 6. 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 ([facility]) 7. Diabetic neuropathy His leg edema is [...] BY: Guero Tam DO documented in this encounterMercy Health St. Vincent Medical CenterQwiqq Mclaren [id number] Evaluation + Plan note Future Scheduled Tests Radiology* US PVR Lower EXT Complete Bilat 11/20/23 [facility] 06-07-2024 Miscellaneous Notes* Telephone Encounter - Ashley Colon - 11/10/2023 10:05 AM EDT [facility] for patient's to call back with her Date of so I can update his billing info. documented in this encounterKettering [facility]06-07-2024 Telephone encounter Note* Telephone Encounter - Ashley Colon - 11/10/2023 10:05 AM EDT [facility] for patient's to call back with her Date of so I can update his billing info. [facility]-04-[facility] History of Present illness Narrative* Guero Tam, DO - 11/07/2023 11:59 PM EDT Patient Name: Myra Pickard Date of : 1965 Date of Service: 11/07/2023 Facility: [facility] Type of Visit: Skilled Visit Subjective Myra Pickard is a 58 y.o. male seen today at intermediate facility for therapy visit. Myra is participating [...] Assessment / Plan 1. Peripheral arterial disease ([facility]) 2. Delayed surgical wound healing of foot amputation stump ([facility]) 3. Other abnormalities of gait and mobility 4. Status post partial amputation of right foot ([facility]) 5. Pressure ulcer of right ankle, stage 3 ([facility]) 6. Type 2 diabetes mellitus with stage 4 chronic kidney disease, without long- term current use of insulin ([facility]) I checked his medications and he is on Trulicity so he doesn't need Januvia. F/U with vascular surgeon. May need further intervention in leg. Continue therapy to reach MMI. All medications reviewed and are medically necessary. ELECTRONICALLY SIGNED BY: Guero Tam DO documented in this encounterKettering Health [facility]05-31-2024 History of Present illness Narrative* Guero Tam DO - 11/03/2023 11:59 PM EDT Patient Name: Myra Pickard Date of : 1965 Date of Service: 11/03/2023 Facility: [facility] Type of Visit: Skilled Visit Subjective Myra Pickard is a 58 y.o. male seen today at intermediate facility for therapy visit. No new problems [...] Exam Vitals reviewed. Exam conducted with a blood and plasma laboratory assistant present (). Constitutional: General: He is not [...] Status post partial amputation of right foot ([facility]) 2. Pressure ulcer of right ankle, stage 3 ([facility]) 3. Other abnormalities of gait and mobility 4. Delayed surgical wound healing of foot amputation stump ([facility]) Await results of CT angiogram. May need vascular intervention. Continue therapy to reach maximum improvement. Continue other orders as directed. ELECTRONICALLY SIGNED BY: Guero Tam DO documented in this encounterKettering Health [facility]05-22-2024 History of Present illness Narrative* Guero Tam DO - 10/25/2023 11:59 PM EDT Patient Name: Myra Pickard Date of : 1965 Date of Service: 10/25/2023 Facility: [facility] Type of Visit: Skilled Visit Subjective Myra Pickard is a 58 y.o. male seen today at intermediate facility for therapy visit. Myra was seen [...] Exam Vitals reviewed. Exam conducted with a blood and plasma laboratory assistant present (Lefty Rosas [facility] Constitutional: General: He is not [...] Status post partial amputation of right foot ([facility]) 2. Osteomyelitis of right foot, unspecified type ([facility]) 3. Muscle weakness (generalized) 4. Other abnormalities of gait and mobility 5. Chronic obstructive pulmonary disease, unspecified COPD type ([facility]) 6. Peripheral arterial disease I'll review medication [...] BY: Guero Tam DO documented in this encounterMercy Health St. Vincent Medical CenterCabbyGo05-21-2024 NoteSinus tachycardia Rightward axis Poor anterior R wave progression QTc 481 [id number] History of Present illness Narrative* Raulito Inman [...] exam, discussion and plan. documented in this encounterAdena [facility] Work Phone: 1(679) 665-723005-21-2024 Instructions* Patient Instructions* Rosemary Benavides LPN - [...] from a cardiac standpoint documented in this encounterAdena Fayette [facility] Center Work Phone: 1(652) 775-577905-15-2024 Miscellaneous Notes* Telephone Encounter - Cameron Mg LPN - 10/18/2023 9:30 AM EDT Physician requested stat testing, patient unable to complete testing in [facility]> Spoke to Dr. Montes, states patient can have testing and f/u at [facility]. [place] office staff aware. Faxed orders to [place] office at [phone].Patient unable to complete testing at times that were offered, requested a Monday or Monday. documented in this encounterMercy Health St. Vincent Medical CenterQwiqq Mclaren FlintZuoqbw69-97-1534 Telephone encounter Note* Telephone Encounter - Cameron Mg LPN - 10/18/2023 9:30 AM EDT Physician requested stat testing, patient unable to complete testing in [facility]> Spoke to Dr. Montes, states patient can have testing and f/u at [facility]. [place] office staff aware. Faxed orders to [facility] at [phone].Patient unable to complete testing at times that were offered, requested a Monday or Monday. [facility]05-15-[facility] Evaluation + Plan note* Assessment & Plan Note - Mike Montes MD - 10/18/2023 8:52 AM EDTAssociated Problem(s): Heavy tobacco smoker >10 cigarettes per day Counseled in length willing to quit. [facility]05-15-2024 Miscellaneous Notes* Assessment & Plan Note - Mike Montes MD - 10/18/2023 8:52 AM EDTAssociated Problem(s): Heavy tobacco smoker >10 cigarettes per day Counseled in length willing to quit. 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 ([facility]) PVR and CTA abdomen and plevis with runoff * Addendum Note - Mike Montes MD - 10/18/2023 8:30 AM EDTAddended by: MIKE MONTES on: 10/18/2023 09:00 AM Modules accepted: Orders documented in this encounterKettering Health [facility]05-15-2024 Evaluation + Plan note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 ([facility]) PVR and CTA abdomen and plevis with runoff [facility]05-15-2024 History of Present illness Narrative* Mike Montes [...] to get some of his testing from [facility] in [place]. I looked at a stress test andbasic [...] circulation - [facility] [place], [place] Heavy tobacco smoker >10 cigarettes per [...] you for your understanding. documented in this encounterKettering Health [facility]05-15-2024 Instructions* Patient Instructions* Mike Montes MD - 10/18/2023 8:30 AM EDT Are You Ready To Kick The Habit? Free Tobacco Cessation Resources [facility] Services [facility] provide all employees with free tobacco cessation services that include: Counseling to understand nicotine addiction Education about medications that can help you successfully quit Assistance with developing a plan to quit Call to set up an individual appointment or find out when group classes will be held: [facility]: [phone] [facility]: [phone] [facility]: [phone] [facility]: [phone] Quit Smoking Action Plan and Resources [facility] offers an eight-week, online smoking cessation plan to all [facility] employees, regardless of whether [place] is your medical insurance provider. Go to [email or web address] and click the Health Risk Assessment and Resources link to get started. In the [employer] menu, click Action Plans instead of Health Risk Assessment to access the Quit Smoking Action Plan. Additional smoking cessation resources are also available to all [facility] employees on the Qbxqo7Whvwfq web page at www.Recicl[employer]/quitsmoking. [place] Tobacco Cessation Program If [place] is your medical insurance provider, there are more free resources available to you, including: No copays or deductibles on local tobacco cessation counseling services to help you quit Prescription assistance for tobacco cessation medications to help you quit For details about the tobacco cessation program available to [place] members, go to www.[employer]ell[employer]ix.Conyac (Search: Tobacco Cessation Program). [place] Tobacco Quit Line 9-208-QECY-NOW ( ) is a toll-free, telephonic service that helps [place] residents quit smoking and using tobacco. It is staffed by experts who tailor a quit plan for you and provide you with advice. [place] Tobacco Quit Line 0-602-CVYX-NOW ( ) is a toll-free, telephonic service that helps [place] residents quit smoking and using tobacco. It is staffed by experts who tailor a quit plan for you and provide you with advice. Two weeks of nicotine replacement therapy may be provided at no charge, if needed. Additional Resources These national organizations also offer free information and resources to help you quit tobacco: [place] [employer]--www.cancer.org/healthy/stayawayfromtobacco [place] [employer]--www.heart.org (Search: Quit Smoking) Centers for Disease Control and Prevention--www.cdc.gov/tobacco [place] Lung Association--www.lungusa.org documented in this encounterCentral Vermont Medical CenterMillion-2-105-15-2024 Note* Addendum Note - Mike Montes MD - 10/18/2023 8:30 AM EDTAddended by: MIKE MONTES on: 10/18/2023 09:00 AM Modules accepted: [facility] History of Present illness Narrative* Guero Tam DO - 10/17/2023 11:59 PM EDT Patient Name: Myra Pickard Date of : 1965 Date of Service: 10/17/2023 Facility: [facility] Type of Visit: Skilled Visit Subjective Myra Pickard is a 58 y.o. male seen today at intermediate facility for therapy visit. Myra has been [...] 97% Physical Exam Exam conducted with a blood and plasma laboratory assistant present (Lefty Rosas [facility]). Constitutional: General: He is not [...] Status post partial amputation of right foot ([facility]) 2. 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 ([facility]) 3. Type 2 diabetes mellitus with stage 4 chronic kidney disease, without long- term current use of insulin ([facility]) I'm going to add duloxetine 60 mg daily for diabetic neuropathy. Continue therapy. All medications reviewed and are medically necessary. F/U with specialists as directed. ELECTRONICALLY SIGNED BY: Guero Tam DO documented in this encounterCentral Vermont Medical CenterMillion-2-105-07-2024 History of Present illness Narrative* Guero Tam DO - 10/10/2023 11:33 PM EDT Patient Name: Myra Pickard Date of : 1965 Date of Service: 10/10/2023 Facility: [facility] Type of Visit: Skilled Visit Subjective Myra Pickard is a 58 y.o. male [facility]. Myra is having diarrhea. He had 5 episodes in last day and had an accident in bed. He doesn't haveany pain, blood or fever. There isn't a foul smell reported like one would expect with C. dif. He is on levofloxacin for osteomyelitis. He has an appointment with the drill hand on Monday. He said his colonoscopy was [...] 98% Physical Exam Exam conducted with a blood and plasma laboratory assistant present (Lefty CORREAII). Constitutional: General: He is [...] 2. Other acute osteomyelitis of right foot ([facility]) 3. Status post partial amputation of right foot ([facility]) 4. Chronic obstructive pulmonary disease, unspecified COPD type ([facility]) 5. Abscess of right foot Will try immodium 2mg 2 po Q6 hrs prn for diarrhea. May need to check for C. dif Continue therapy. F/U with drill hand on Monday. All medications reviewed and are medically necessary. May need to adjust diabetic medications in future. ELECTRONICALLY SIGNED BY: Guero Tam, DO documented in this encounterKettering [facility]05-03-2024 History of Present illness Narrative* Guero Tam DO - 10/06/2023 4:49 PM EDT Patient Name: Myra Pickard Date of : 1965 Date of Service: 10/06/2023 Facility: [facility] Type of Visit: Admission H&P Subjective Myra Pickard is a 58 y.o. male [facility]. Myra presents to [facility] for therapies following hospitalization for sepsis due [...] 96% Physical Exam Exam conducted with a blood and plasma laboratory assistant present ( present). Constitutional: General: He is [...] Status post partial amputation of right foot ([facility]) 3. Type 2 diabetes mellitus with stage 4 chronic kidney disease, without long- term current use of insulin ([facility]) 4. Atherosclerosis of [place] coronary artery of [place] heart without angina pectoris 5. Bacterial sepsis ([facility]) 6. Other acute osteomyelitis of right foot ([facility]) 7. Chronic obstructive pulmonary disease, unspecified COPD type ([facility]) 8. Cigarette smoker 9. BPH with obstruction/lower urinary tract symptoms 10. Gastroesophageal reflux disease, unspecified whether esophagitis present 11. Restless leg syndrome 12. Hyperlipidemia, unspecified hyperlipidemia type 13. Carpal tunnel syndrome, unspecified laterality 14. Heart failure, unspecified HF chronicity, unspecified heart failure type ([facility]) Admit to [facility] for therapies. Full code. Continue medications from hospital. F/U with specialists as directed. Good rehab potential. Planning on discharge to home when able. ELECTRONICALLY SIGNED BY: Guero Tam DO documented in this encounterMercy Health St. Vincent Medical CenterQwiqq Mclaren [id number] Hospital Discharge instructions Follow Up Care 07/13/2023 12:04:02 With:SOLEDAD HERRERA, Yeyo Blum, URL Address: [address] [place] [id number]- When: Unknown [facility] [employer] 01-22-2024 Evaluation note* Encounter Date Diagnosis Assessment Notes Treatment Notes Treatment Clinical Notes Jun, Hyperlipidemia (ICD-10 - E78.5) [facility] Other 12-29-2023 Hospital Discharge instructions Patient Education [...] urethra. Follow these instructions at home: Take wuzx-bix-xhyygid and prescription medicines only as told by [...] provider. Document Revised: 12/08/2021 Document Reviewed: 12/08/2021 [employer] Patient Education 2022 [place]. [facility] Up [facility] 06/01/2023 14:05:36 With:SOLEDAD HERRERA, Yeyo Blum, URL Address: [address] [place] [id number]- When: Unknown [facility] 12-12-2023 Evaluation note* Encounter Date Diagnosis Assessment Notes Treatment Notes Treatment Clinical Notes May, 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) [facility] Other 11-24-2023 Evaluation note* Encounter Date Diagnosis Assessment Notes Treatment Notes Treatment Clinical Notes Apr, Diabetic nephropathy (ICD-10 - E11.21) [facility] 11-07-2023 Evaluation note* Encounter Date Diagnosis Assessment Notes Treatment Notes Treatment Clinical Notes Apr, Left arm pain (ICD-10 - M79.602) [facility] Other 11-02-2023 Evaluation note* Encounter Date Diagnosis [...] and to have his surgery as scheduled. [facility] Other 10-24-2023 Evaluation note* Encounter Date Diagnosis Assessment Notes Treatment Notes Treatment Clinical Notes Mar, 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) Mar, Atherosclerotic hear t disease of [place] coronary artery without angina pectoris (ICD-10 - I25.10) [facility] Other 10-11-2023 Evaluation note* Encounter Date Diagnosis [...] No records available as of yet from [facility]. He was found to have developed [...] to continue to montior this at home. [facility] Other 10-09-2023 Note [id number] 02-14-2023 Hospital Discharge instructions Patient [...] including vitamins, herbs, eye drops, creams, and mhmd-ipr-kjkifud medicines. Any problems you or family members [...] provider tells you to take them. Taking whkz-cbm-bjbuyfh medicines, vitamins, herbs, and supplements. Surgery safety [...] provider. Document Revised: 02/15/2022 Document Reviewed: 02/15/2022 [employer] Patient Education 2022 [place]. [facility]08-28-2023 Hospital Discharge instructions Patient Education 01/30/2023 11:22:32 [...] including vitamins, herbs, eye drops, creams, and awaw-vla-alcvfjn medicines. ?Whether you are or may be [...] provider. Document Revised: 02/02/2022 Document Reviewed: 12/25/2020 [employer] Patient Education 2022 [employer] 01/30/2023 11:22:30 Cystoscopy Cystoscopy Cystoscopy is [...] including vitamins, herbs, eye drops, creams, and smbe-pqx-heacmvf medicines. Any problems you or family members [...] provider tells you to take them. Taking sltq-oui-nrbskwu medicines, vitamins, herbs, and supplements. Tests You [...] Follow these instructions at home: Medicines Take zrrf-aus-iwfofhr and prescription medicines only as told by [...] provider. Document Revised: 02/02/2022 Document Reviewed: 01/01/2021 [employer] Patient Education 2022 [place]. Follow Up Care 11/23/2022 13:02:56 With:SOLEDAD HERRERA, Yeyo Blum, URL Address: [facility] [address], [place] [address]- [phone] When: Unknown Comments:sched cysto/uros [facility] [place] 08-15-2023 Evaluation note* Encounter Date Diagnosis Assessment Notes Treatment Notes Treatment Clinical Notes Jan, Diabetic nephropathy (ICD-10 - E11.21) [facility] Other 06-29-2023 Evaluation note* Encounter Date Diagnosis [...] reviewed. Nov, Atherosclerotic hear t disease of [place] coronary artery without angina pectoris (ICD-10 - I25.10) Encouraged patient to follow with Cardiology as scheduled. [facility] Other 06-21-2023 Hospital Discharge instructions Patient Education [...] provider. Document Revised: 08/11/2021 Document Reviewed: 05/07/2021 [employer] Patient Education 2021 [place]. [facility] Up Care 09/14/2022 14:23:26 With:SOLEDAD HERRERA, Yeyo Blum, URL Address: [facility] [address] [place] [address]- When: Unknown [facility] 05-05-2023 Evaluation note* Encounter Date Diagnosis Assessment Notes Treatment Notes Treatment Clinical Notes October, Erectile dysfunction, unspecified erectile dysfunction type (ICD-10 - N52.9) [facility] Other 04-19-2023 Evaluation note* Encounter Date Diagnosis Assessment Notes Treatment Notes Treatment Clinical Notes Sep, 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) [facility] Other 04-12-2023 Evaluation note* Encounter Date Diagnosis Assessment Notes Treatment Notes Treatment Clinical Notes Sep, Atherosclerotic hear t disease of [place] coronary artery without angina pectoris (ICD-10 - I25.10) Sep, 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) [facility] Other 03-20-2023 Evaluation note* Encounter Date Diagnosis Assessment Notes Treatment Notes Treatment Clinical Notes Aug, Diabetic nephropathy (ICD-10 - E11.21) [facility] 03-03-2023 Evaluation note* Encounter Date Diagnosis Assessment Notes Treatment Notes Treatment Clinical Notes Aug, Pain in right leg (ICD-10 - M79.604) [facility] 03-02-2023 Evaluation note* Encounter Date Diagnosis Assessment Notes Treatment Notes Treatment Clinical Notes Aug, Pain in right leg (ICD-10 - M79.604) [facility] 02-20-2023 Evaluation note* Encounter Date Diagnosis Assessment Notes Treatment Notes Treatment Clinical Notes Jul, Intractable episodic headache, unspecified headache type (ICD-10 - R51.9) [facility] 02-14-2023 Evaluation note* Encounter Date Diagnosis Assessment Notes Treatment Notes Treatment Clinical Notes Jul, Acute intractable headache, unspecified headache type (ICD-10 - R51.9) [facility] 02-08-2023 Evaluation note* Encounter Date Diagnosis Assessment Notes Treatment Notes Treatment Clinical Notes Jul, Headache (ICD-10 - R51.9) [facility] 01-30-2023 Evaluation note* Encounter Date Diagnosis [...] medication and we will continue to monitor. [facility] Other 12-21-2022 Evaluation note* Encounter Date Diagnosis Assessment Notes Treatment Notes Treatment Clinical Notes May, Diabetic nephropathy (ICD-10 - E11.21) [facility] Other 11-21-2022 Evaluation note* Encounter Date Diagnosis Assessment Notes Treatment Notes Treatment Clinical Notes Apr, Diabetic nephropathy (ICD-10 - E11.21) [facility] Other 11-15-2022 Evaluation note* Encounter Date Diagnosis Assessment Notes Treatment Notes Treatment Clinical Notes Apr, Pain in right leg (ICD-10 - M79.604) [facility] Other 10-18-2022 Evaluation note* Encounter Date Diagnosis Assessment Notes Treatment Notes Treatment Clinical Notes Mar, Diabetic nephropathy (ICD-10 - E11.21) [facility] Other 09-13-2022 Evaluation note* Encounter Date Diagnosis Assessment Notes Treatment Notes Treatment Clinical Notes Feb, Hypertensive chronic kidney disease with stage 1 through stage 4 chronic kidney disease, or unspecified chronic kidney disease (ICD-10 - I12.9) [facility] Other 09-13-2022 Evaluation note* Encounter Date Diagnosis [...] scheduled. Feb, Atherosclerotic hear t disease of [place] coronary artery without angina pectoris (ICD-10 - [...] is to continue to follow with the malt house supervisor as scheduled. Feb, Pain in right [...] Noted upon review of blood work results. [facility] Other 08-19-2022 Evaluation note* Encounter Date Diagnosis Assessment Notes Treatment Notes Treatment Clinical Notes Jan, Diabetic nephropathy (ICD-10 - E11.21) [facility] 08-17-2022 Evaluation note* Encounter Date Diagnosis Assessment Notes Treatment Notes Treatment Clinical Notes Jan, Diabetic nephropathy (ICD-10 - E11.21) [facility] 07-21-2022 Evaluation note* Encounter Date Diagnosis Assessment Notes Treatment Notes Treatment Clinical Notes Dec, Diabetic nephropathy (ICD-10 - E11.21) [facility] 06-22-2022 Evaluation note* Encounter Date Diagnosis Assessment Notes Treatment Notes Treatment Clinical Notes Nov, Diabetic nephropathy (ICD-10 - E11.21) [facility] 05-23-2022 Evaluation note* Encounter Date Diagnosis Assessment Notes Treatment Notes Treatment Clinical Notes October, Diabetic nephropathy (ICD-10 - E11.21) [facility] 05-17-2022 Evaluation note* Encounter Date Diagnosis [...] E11.59) October, Atherosclerotic hear t disease of [place] coronary artery without angina pectoris (ICD-10 - I25.10) Patient follows with Dr. Inman. For this October, Other He did quit smoking since July 2020 [facility] Other 05-16-2022 Evaluation note* Encounter Date Diagnosis Assessment Notes Treatment Notes Treatment Clinical Notes October, Hypertensive chronic kidney disease with stage 1 through stage 4 chronic kidney disease, or unspecified chronic kidney disease (ICD-10 - I12.9) October, Stage 3 chronic kidney disease, unspecified whether stage 3a or 3b CKD (ICD-10 - N18.30) [facility] Other 05-06-2022 Evaluation note* Encounter Date Diagnosis Assessment Notes Treatment Notes Treatment Clinical Notes October, Pain in right leg (ICD-10 - M79.604) October, Pain in left leg (ICD-10 - M79.605) [facility] Other 04-20-2022 Evaluation note* Encounter Date Diagnosis Assessment Notes Treatment Notes Treatment Clinical Notes Sep, Diabetic nephropathy (ICD-10 - E11.21) [facility] 04-19-2022 Evaluation note* Encounter Date Diagnosis Assessment Notes Treatment Notes Treatment Clinical Notes Sep, Anxiety (ICD-10 - F41.9) Sep, Hypertensive chronic kidney disease with stage 1 through stage 4 chronic kidney disease, or unspecified chronic kidney disease (ICD-10 - I12.9) [facility] Other 03-07-2022 Evaluation note* Encounter Date Diagnosis Assessment Notes Treatment Notes Treatment Clinical Notes Aug, Anxiety (ICD-10 - F41.9) [facility] Other 02-22-2022 Evaluation note* Encounter Date Diagnosis [...] 12 pound weight loss from last visit. [facility] Other 01-19-2022 Evaluation note* Encounter Date Diagnosis Assessment Notes Treatment Notes Treatment Clinical Notes Jun, Diabetic nephropathy (ICD-10 - E11.21) [facility] Other Consult note Author Amina Fagan [facility] Note Date/Time August 11, 2024 2:18 pm [facility] [address] [place] [address] Nephrology Consult Note Signed Patient: Myra Pickard SR MR#: [id number] : 1965 Acct:[id number] Age/Sex: 59 / M Adm Date: 5 Loc: Room: [address] [place] [address] Type: ADM IN Attending Dr: Kevon Viera [...] reviewed 12 system review is negative today [facility] Medical History Chronic obstructive pulmonary disease, unspecified [...] mass Atrial fibrillation Atherosclerotic heart disease of [place] coronary artery with unspecified angina pectoris Anxiety Hx of exercise stress test Family history of premature CAD Reports mother had quadruple bypass at age of 45 Myocardial infarction mild Fibromyalgia Chronic back pain Sleep apnea Neuropathy Cataract Peripheral artery disease Hyperlipidemia Diabetes Hypertension Surgical History History of below-knee amputation of right lower extremity 02/2024 [facility] [place]. Simon Hernández Vascular History of [...] [History Confirmed 08/11/24] flash glucose scanning reader (AvidiaStyle Jigar 2 [place]) #1 ea 12/28/23 [Rx Confirmed 08/11/24] flash [...] 08/11/24] pen needle, diabetic 32 gauge x /32 (Comfort EZ Pen [place]) #100 ea 04/15/24 [Rx Confirmed 08/11/24] hydroxyzine [...] 25 Mg Tablet) 25 mg PO HS [facility] Stop: 08/11/25 21:59 Aspirin (Aspirin 81 Mg Tablet.) 81 mg PO DAILY [facility] Stop: 08/11/25 08:59 Last Admin: 08/11/24 09:13 Dose: 81 mg Atorvastatin Calcium (Atorvastatin 80 Mg Tablet) 80 mg PO DAILY [facility] Stop: 08/11/25 08:59 Last Admin: 08/11/24 09:14 Dose: 80 mg Budesonide/Formoterol Fumarate (Budesonide/Formoterol 160-4.5 Mcg 60 Puff/6 Gm Hfa.Aer.Ad) 2 puff INHALATION BID [facility] Stop: 08/11/25 08:59 Last Admin: 08/11/24 09:41 Dose: 2 puff Calcium Carbonate (Calcium Carbonate/Vitamin D3 500 Mg/200 Unit Tablet) 2 tab PO TID.WITH.MEALS [facility] Stop: 08/11/25 07:59 Last Admin: 08/11/24 13:40 Dose: 2 tab Clopidogrel Bisulfate (Clopidogrel Bisulfate 75 Mg Tablet) 75 mg PO DAILY [facility] Stop: 08/11/25 08:59 Last Admin: 08/11/24 09:14 [...] 5,000 Unit/Ml Vial) 5,000 unit SUBCUT Q12HR [facility] Stop: 08/11/25 08:59 Last Admin: 08/11/24 09:14 [...] .Q8H [facility] Stop: 08/11/25 07:14 Last Admin: 08/11/24 11:51 Dose: 125 mls/hr Insulin Aspart (Insulin Aspart 300 Units/3 Ml) 0 units SUBCUT TID.WM.HS [facility]; Protocol Stop: 08/11/25 07:59 Last Admin: 08/11/24 13:40 Dose: Not Given Ipratropium [place] (Ipratropium [place] 0.5 Mg/2.5 Ml Vial.Neb) 0.5 mg INHALATION [...] 40 Mg Tablet.Dr) 40 mg PO BID [facility] Stop: 08/11/25 08:59 Last Admin: 08/11/24 09:13 Dose: 40 mg Pregabalin (Pregabalin 75 Mg Capsule) 75 mg PO TID [facility] Stop: 02/07/25 08:59 Last Admin: 08/11/24 13:40 Dose: 75 mg Ropinirole HCl (Ropinirole 1 Mg Tablet) 1 mg PO TID [facility] Stop: 08/11/25 08:59 Last Admin: 08/11/24 13:40 Dose: 1 mg Tamsulosin HCl (Tamsulosin 0.4 Mg Cap.Er.24h) 0.4 mg PO BID [facility] Stop: 08/11/25 08:59 Last Admin: 08/11/24 09:13 Dose: 0.4 mg Tizanidine HCl (Tizanidine 4 Mg Tablet) 4 mg PO QHS [facility] Stop: 08/11/25 21:59 Exam Physical Exam Vital [...] Appearance Clear Urine pH 5.5 Ur Specific [place] 1.024 Urine Protein Negative Urine Glucose (UA) 500 H Urine Ketones Negative Urine Occult Blood Negative Urine Nitrite Negative Ur Leukocyte Esterase Negative Radiology Impressions Impressions - last 24 hours: Impressions Chest X-Ray 08/11/24 04:22 IMPRESSION: No acute process. Impression dictated by: Sudeep Lind M.D.08/11/2024 10:06 AM Dictation Location: [place] [address] 08/11/24 04:22 IMPRESSION: No acute [...] Sudeep Lind M.D.08/11/2024 10:06 AM Dictation Location: [place] [address] Any impression(s) listed above is documentation that [...] concern Documented By: Amina Fagan MD 08/11/24 1405 Signed By: <Electronically signed by Amina Fagan MD> 08/11/24 1414 [facility] Work Phone: [place] [address] Cardiology Consult Note Signed Patient: Myra Pickard SR MR#: [id number] : 1965 Acct:[id number] Age/Sex: 59 / M Adm Date: 5 Loc: Room: [address] [place] [address] Type: ADM INOo Attending Dr: Abdullahi Canchola DO Copies to: DO Pascale Guzman MD, MERGED WITH [facility] Abdullahi Canchola, ~ Cardiology HPI History of [...] post right below-knee amputation February 2024 in [place]. He has COPD followed by pulmonary medicine in [place]. 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 Other review of system was unremarkable [facility] Medical History Hypokalemia Hypocalcemia Hypomagnesemia Vitamin B12 [...] mass Atrial fibrillation Atherosclerotic heart disease of [place] coronary artery with unspecified angina pectoris Anxiety Hx of exercise stress test Family history of premature CAD Reports mother had quadruple bypass at age of 45 Myocardial infarction mild Fibromyalgia Chronic back pain Sleep apnea Neuropathy Cataract Peripheral artery disease Hyperlipidemia Diabetes Hypertension Surgical History History of below-knee amputation of right lower extremity 02/2024 [facility] [place]. Simon Hernández Vascular History of [...] 07/12/23[History Confirmed 10/10/24] flash glucose scanning reader (AvidiaStyle Jigar 2 [place]) #1 ea 12/28/23 [Rx Confirmed 10/10/24] flash [...] 10/10/24] pen needle, diabetic 32 gauge x 32 (Comfort EZ Pen [place]) #100 ea 04/15/24 [Rx Confirmed 10/10/24] hydroxyzine [...] Lymph # (Auto) 2.0 2.0 (1.00-4.8) x10E3/uL [place] # (Auto) 0.8 0.9 H (0.0-0.8) x10E3/uL [...] RCA, nuclear stress test February 2024 in [place] was normal Plan: Continue aggressive risk factors modifications, tobacco cessation, dual antiplatelet therapy, high intensity statin Code(s): I25.10 - Atherosclerotic heart disease of [place] coronary artery without angina pectoris Documented By: Pascale Arnold MD, [facility] WITH [facility] 5 0947 Signed By: 10/11/24 0956 [facility] March 06, 2024 4:23pm Note Date/Time March 06, 2024 3: 58pm [facility] [address] [place] [address] Discharge Summary Signed Patient: Myra Pickard SR MR#: [id number] : 1965 Acct:[id number] Age/Sex: 58 / M Adm Date: 4 Loc: Room: 1L5706-[address]: João Powell MD Copies to: [...] neuropathy status post right BKA recently at [facility]. He presents today with episodes [...] Instructions: As directed (DME) FreeStyle Jigar 2 [place] Misc See Rx Instructions .ROUTE Qty: 1 [...] % (Auto) N/A, Lymph % (Auto) N/A, [place] % (Auto) N/A, Eos % (Auto) N/A, Baso % (Auto) N/A, Nucleat RBC Rel Count N/A, Neut # (Auto) N/A, Lymph # (Auto) N/A, [place] # (Auto) N/A, Eos # (Auto) N/A, [...] 106 Documented By: João Powell MD 03/06/24 3607 Signed By: <Electronically signed by João Powell MD> 03/06/24 0437 [facility] Work Phone: Discharge summary Author Kevon Viera [facility] Note Date/Time August 13, 2024 2:3 9pm [facility] [address] [place] [address] Discharge Summary Signed Patient: Myra Pickard SR MR#: [id number] : 1965 Acct:[id number] Age/Sex: 59 / M Adm Date: 5 Loc: 3T Room: [address] [place] [address]: Kevon Viera MD Copies to: [...] (DME) pen needle, diabetic [Comfort EZ Pen [place]] 32 gauge x 5/32 needle See Rx [...] Instructions: As directed (DME) FreeStyle Jigar 2 [place] Misc See Rx Instructions .Route Qty: 1 0RF Rx Instructions: As directed amitriptyline 25 mg tablet 25 mg PO DAILY magnesium oxide 400 mg magnesium tablet 400 mg PO DAILY Qty: 90 1RF Ajovy Autoinjector 225 mg/1.5 mL auto-injector 225 mg subcut [facility] O[facility] 75 mg tablet,disintegrating 75 mg PO [...] <Electronically signed by Kevon Viera MD> 08/13/24 143 [facility] Work Phone: [place] [address] Discharge Summary Signed Patient: Myra Pickard SR MR#: [id number] : 1965 Acct:[id number] Age/Sex: 59 / M Adm Date: 5 Loc: Room: [address] [place] [address]: Abdullahi Canchola DO Copies to: DO Abdullahi Guzman DO~ Providers Date of Discharge: 10/11/24 Discharging Provider: Abdullahi Canchola Primary Care Provider: Teresa Lynch Consults: 10/10/24 18:25 Consult to Cardiology Routine Comment: Consulting Provider: [facility], [facility] Reason For Exam: chest pain Has [...] (DME) pen needle, diabetic [Comfort EZ Pen [place]] 32 gauge x 5/32 needle See Rx [...] Instructions: As directed (DME) FreeStyle Jigar 2 [place] Misc See Rx Instructions .Route Qty: 1 0RF Rx Instructions: As directed Discontinued valsartan-hydrochlorothiazide [Diovan HCT] 160-12.5 mg tablet 1 tab PO DAILY Follow Up: [facility] [Outside] (Once Insurance approves outpatient Stress Test [...] % (Auto) 58.3, Lymph % (Auto) 25.5, [place] % (Auto) 10.9, Eos % (Auto) 4.0, Baso % (Auto) 1.3, Nucleat RBC Rel Count 0.1, Neut # (Auto) 4.6, Lymph # (Auto) 2.0, [place] # (Auto) 0.9 H, Eos # (Auto) [...] Neut % (Auto) 61.8, Lymph % (Auto)23.4, [place] % (Auto) 9.5, Eos % (Auto) 4.0, Baso % (Auto) 1.3, Nucleat RBC Rel Count 0.2, Neut # (Auto) 5.3, Lymph # (Auto) 2.0, [place] # (Auto) 0.8, Eos # (Auto) 0.3, [...] 10/11/24 13 40 Signed By: 10/11/24 1358 [facility] Abdullahi Canchola [facility] Note Date/Time October 11, 2024 1:58pm [facility] [address] [place], [place] [id number] Discharge Summary Signed Patient: Myra Pickard SR MR#: [id number] : 1965 Acct:[id number] Age/Sex: 59 / M Adm Date: 5 Loc: Room: [address] [place] [address]: Abdullahi Canchola DO Copies to: DO Abdullahi Guzman, ~ Providers Date of Discharge: 10/11/24 Discharging Provider: Abdullahi Canchola Primary Care Provider: Teresa Lynch Consults: 10/10/24 18:25 Consult to Cardiology Routine Comment: Consulting Provider: [facility] Reason For Exam: chest pain Has [...] (DME) pen needle, diabetic [Comfort EZ Pen [place]] 32 gauge x 5/32 needle See Rx [...] Instructions: As directed (DME) FreeStyle Jigar 2 [place] Misc See Rx Instructions .Route Qty: 1 0RF Rx Instructions: As directed Discontinued valsartan-hydrochlorothiazide [Diovan HCT] 160-12.5 mg tablet 1 tab PO DAILY Follow Up: [facility] [Outside] (Once Insurance approves outpatient Stress Test we will call you with date/time/instructions.) Bernard De LaC ruz MD [Active Staff] - (we will call [...] % (Auto) 58.3, Lymph % (Auto) 25.5, [place] % (Auto) 10.9, Eos % (Auto) 4.0, Baso % (Auto) 1.3, Nucleat RBC Rel Count 0.1, Neut # (Auto) 4.6, Lymph # (Auto) 2.0, [place] # (Auto) 0.9 H, Eos # (Auto) [...] % (Auto) 61.8, Lymph % (Auto) 23.4, [place] % (Auto) 9.5, Eos % (Auto) 4.0, Baso % (Auto) 1.3, Nucleat RBC Rel Count 0.2, Neut # (Auto) 5.3, Lymph # (Auto) 2.0, [place] # (Auto) 0.8, Eos # (Auto) 0.3, [...] 40 Signed By: <Electronically signed by Abdullahi Canchola DO> 10/11/24 2190 [facility] Work Phone: Evaluation + Plan note Future Appointments Appointment Date:12/21/2022 11:00:00 AM Scheduled Provider: Location:[facility] Appointment Type:URO Nurse Visit Appointment Date:01/30/2023 10:30:00 AM Scheduled Provider:[facility] Office Visit [facility] Evaluation + Plan note Future Appointments Appointment Date:01/30/2023 10:15:00 AM Scheduled Provider:[facility]O Office Visit [facility] Evaluation + Plan note Future Appointments Appointment Date:02/01/2023 10:00:00 AM Scheduled Provider: Location:[facility] Appointment Type:Urology CALL PAT FT Appointment Date:02/08/2023 09:00:00 AM Scheduled Provider: Location:[facility] Appointment Type:Urology FT Appointment Date:02/14/2023 09:15:00 AM Scheduled Provider: Location:[facility] Appointment Type:Urology FT [facility] evaluation + Plan note Future Appointments Appointment Date:02/14/2023 09:15:00 AM Scheduled Provider: Location:[facility] Future Appointments Appointment Date:03/20/2023 08:45:00 AM Scheduled Provider: [facility] Type:URO Nurse Visit Appointment Date:04/05/2023 08:00:00 AM Scheduled Provider:Yeyo ROWE MD Location:[facility] Appointment Type:[facility]O [facility] Future Appointments Appointment Date:05/03/2023 08:45:00 AM Scheduled Provider:Yeyo ROWE MD Location:[facility] Appointment Type:URO Office Visit [facility] Evaluation + Plan note Future Appointments Appointment Date:07/03/2023 10:15:00 AM Scheduled Provider:Yeyo ROWE MD Location:[facility] Appointment Type:URO Office Visit [facility] evaluation + Plan note Future Appointments Appointment Date:10/23/2023 09:30:00 AM Scheduled Provider:[facility]es [facility]FT) [facility] note[facility] Improveit! [email or web address] Other Evaluation noteNo assessment information available [facility] Work Phone: evaluaysrs note* Diagnosis History of PTCA Postsurgical percutaneous transluminal coronary angioplasty status Hyperlipidemia, unspecified hyperlipidemia type Encounter for pre-operative cardiovascular clearance Former smoker Personal history of tobacco use, presenting hazards to health documented in this encounter [facility] Work Phone: Evaluation note* Diagnosis [...] disease chron ic Diabetes chronic Hypertension chronic [facility] Work Phone: evaluation note* Diagnosis Onset Date Resolution Status Anemia [...] chronic Altered mental status acute Hypothermia acute [facility] Work Phone: Evaluation note* Diagnosis [...] acute Restless legs syndrome acute Syncope acute [facility] Work Phone: Evaluation note* Diagnosis [...] imaging acute GERD (gastroesophageal reflux disease) acute [facility] Work Phone: Evaluation note* Diagnosis Onset Date [...] GERD (gastroesophageal reflux disease) acute Diabetes acute [facility] Work Phone: Evaluation note* Diagnosis Shortness of breath documented in this encounter [facility] Work Phone: Evaluation note* Diagnosis Abscess of right foot- Primary Cellulitis and abscess of foot, except toes Status post partial amputation of right foot ([facility]) Type 2 diabetes mellitus with stage 4 chronic kidney disease, without long-term current use of insulin ([facility]) Atherosclerosis of [place] coronary artery of [place] heart without angina pectoris Bacterial sepsis ([facility]) Bacteremia Other acute osteomyelitis of right foot ([facility]) Chronic obstructive pulmonary disease, unspecified COPD type ([facility]) Cigarette smoker Tobacco use disorder BPH with obstruction/lower urinary tract symptoms Gastroesophageal reflux disease, unspecified whether esophagitis present Restless leg syndrome Restless legs syndrome (RLS) Hyperlipidemia, unspecified hyperlipidemia type Carpal tunnel syndrome, unspecified laterality Heart failure, unspecified HF chronicity, unspecified heart failure type ([facility]) [facility] Diarrhea, unspecified type- Primary Other acute osteomyelitis of right foot ([facility] Status post partial amputation of right foot ([facility]) Chronic obstructive pulmonary disease, unspecified COPD type ([facility]) Abscess of right foot Cellulitis and abscess of foot, except toes Type 2 diabetes mellitus with stage 4 chronic kidney disease, without long-term current use of insulin ([facility]) [facility] Diagnosis Status post partial amputation of right foot ([facility])- Primary Pressure ulcer of right ankle, stage 3 ([facility]) Other abnormalities of gait and mobility Delayed surgical wound healing of foot amputation stump ([facility]) documented in this encounter [facility] Diagnosis 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 ([facility])- Primary Poor circulation Unspecified circulatory system disorder Heavy tobacco smoker >10 cigarettes per day documented in this encounter [facility] Diagnosis Status post partial amputation of right foot ([facility])- Primary 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 ([facility]) Type 2 diabetes mellitus with stage 4 chronic kidney disease, without long-term current use of insulin ([facility]) documented in this encounter [facility] Diagnosis Peripheral arterial disease ([facility])- Primary Unspecified peripheral vascular disease Delayed surgical wound healing of foot amputation stump ([facility]) Other abnormalities of gait and mobility Status post partial amputation of right foot ([facility]) Pressure ulcer of right ankle, stage 3 ([facility]) Type 2 diabetes mellitus with stage 4 chronic kidney disease, without long-term current use of insulin ([facility]) documented in this encounter [facility] Diagnosis 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 ([facility])- Primary Status post partial amputation of right foot ([facility])- Primary Osteomyelitis of right foot, unspecified type ([facility]) Muscle weakness (generalized) Other abnormalities of gait and mobility Chronic obstructive pulmonary disease, unspecified COPD type ([facility]) Peripheral arterial disease ([facility]) Unspecified peripheral vascular disease 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 ([facility]) documented in this encounter [facility]* Diagnosis Status post partial amputation of right foot ([facility])- Primary Other abnormalities of gait and mobility Leg edema Edema Primary hypertension Unspecified essential hypertension Hypotension due to drugs Other iatrogenic hypotension 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 ([facility]) Diabetic polyneuropathy associated with type 2 diabetes mellitus ([facility]) documented in this encounter [facility]* Diagnosis 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 ([facility] Primary Cigarette smoker motivated to quit documented in this encounter [facility] Diagnosis 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 ([facility] Primary 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 ([facility]) Delayed surgical wound healing of foot amputation stump ([facility]) Other abnormalities of gait and mobility documented in this [facility] Diagnosis 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 ([facility] Primary [facility] Diagnosis 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 ([facility])- Primary Cigarette smoker Tobacco use disorder documented in this [facility]* Diagnosis Diabetic polyneuropathy associated with type 2 diabetes mellitus ([facility])- Primary Disorientation Other general symptoms Other abnormalities of gait and mobility Status post partial amputation of right foot ([facility]) Atherosclerosis of [place] coronary artery of [place] heart without angina pectoris Atrial fibrillation ([facility]) Primary hypertension Unspecified essential hypertension documented in this [facility] Diagnosis Diabetic polyneuropathy associated with type 2 diabetes mellitus ([facility])- Primary Encounter for orthopedic aftercare following surgical amputation Other abnormalities of gait and mobility Restless leg syndrome Restless legs syndrome (RLS) documented in this encounter [facility]* Diagnosis 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 ([facility])- Primary Poor circulation Unspecified circulatory system disorder Heavy tobacco smoker >10 cigarettes per day 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 ([facility])- Primary Cigarette smoker motivated to quit 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 ([facility])- Primary Cigarette smoker Tobacco use disorder History of right below knee amputation ([facility])- Primary documented in this [facility]* Diagnosis Encounter for orthopedic aftercare following surgical amputation- Primary Cigarette smoker Tobacco use disorder Diabetic polyneuropathy associated with type 2 diabetes mellitus ([facility]) Other abnormalities of gait and mobility Muscle spasm Spasm of muscle documented in this encounter [facility]* Diagnosis PAD (peripheral artery disease) ([facility] Primary Unspecified peripheral vascular disease documented in this encounter [facility]* Diagnosis Encounter for orthopedic aftercare following surgical amputation- Primary Other abnormalities of gait and mobility BPH with obstruction/lower urinary tract symptoms Diabetic polyneuropathy associated with type 2 diabetes mellitus ([facility]) Atherosclerosis of [place] coronary artery of [place] heart without angina pectoris Heart failure, unspecified HF chronicity, unspecified heart failure type ([facility]) Primary hypertension Unspecified essential hypertension Peripheral arterial disease ([facility]) Unspecified peripheral vascular disease Chronic obstructive pulmonary disease, unspecified COPD type ([facility]) Gastroesophageal reflux disease, unspecified whether esophagitis present Muscle weakness (generalized) documented in this encounter [facility]* Diagnosis Onset Date Resolution Status Admit Date Acute kidney injury superimp osed on CKD acute August 11, 2024 5:39am Diabetes acute August 11 5:39am Hypocalcemia acute August 11, 2 025 5:39am Left sided numbness acute August 11, 2024 5:39am Paresthesias acute August 11, 2 025 5:39am Hypertension chronic August 11 2 025 5:39am [facility] Work Phone: Evaluation note* Diagnosis Chest pain, unspecified type documented in this encounter [facility] Work Phone: History and physical note Author Mike Burleson [facility] Note Date/Time April 23, 2024 1:50pm [facility] [address] [place] [address] Gastroenterology H&P Signed Patient: Myra Pickard SR MR#: [id number] : 1965 Acct:[id number] Age/Sex: 58 / M Adm Date: 4 Loc: Room: Type: [facility] Attending Dr: Mike Burleson MD Copies to: Teresa Lynch,DO Mike Burleson MD~ Date of Service: 04/23/2024 HISTORY & [...] is an appropriate candidate for the procedure. iMke Burleson MD Documented By: Mike Burleson MD 04/23/24 9564 Signed By: <Electronically signed by Mike Burleson MD> 04/23/24 4791 [facility] Work Phone: History and physical note Author Marge Andino [facility] Note Date/Time August 11, 2024 7:24 am [facility] [address] [place] [address] Hospitalist H&P Signed Patient: Myra Pickard SR MR#: [id number] : 1965 Acct:[id number] Age/Sex: 59 / M Adm Date: 5 Loc: Room: [address] [place] [address] Type: ADM IN Attending Dr: Kevon Viera [...] neck without acute findings -official report pending [facility] Medical History Chronic obstructive pulmonary disease, unspecified [...] mass Atrial fibrillation Atherosclerotic heart disease of [place] coronary artery with unspecified angina pectoris Anxiety Hx of exercise stress test Family history of premature CAD Reports mother had quadruple bypass at age of 45 Myocardial infarction mild Fibromyalgia Chronic back pain Sleep apnea Neuropathy Cataract Peripheral artery disease Hyperlipidemia Diabetes Hypertension Surgical History History of below-knee amputation of right lower extremity 02/2024 [facility] [place]. Simon Hernández Vascular History of [...] [History Confirmed 08/11/24] flash glucose scanning reader (AvidiaStyle Jigar 2 [place]) #1 ea 12/28/23 [Rx Confirmed 08/11/24] flash [...] 32 gauge x 5/32 (Comfort EZ Pen [place]) #100 ea 04/15/24 [Rx Confirmed 08/11/24] hydroxyzine [...] 04:15 Lymph % (Auto) N/A 08/11/24 04:15 [place] % (Auto) N/A 08/11/24 04:15 Eos % (Auto) N/A 08/11/24 04:15 Baso % (Auto) N/A 08/11/24 04:15 Nucleat RBC Rel Count N/A 08/11/24 04:15 Neut # (Auto) N/A 08/11/24 04:15 Lymph # (Auto) N/A 08/11/24 04:15 [place] # (Auto) N/A 08/11/24 04:15 Eos # [...] signed by Marge Andino MD> 08/11/24 0724 [facility] Work Phone: [place] [address] Hospitalist H&P Signed Patient: Myra Pickard SR MR#: [id number] : 1965 Acct:[id number] Age/Sex: 59 / M Adm Date: 5 Loc: Room: [address] [place] [address] Type: ADM INOo Attending Dr: Abdullahi Canchola [...] reports multivessel PCI'saround the time of at [facility]. He hasstent information cards that are [...] Continue to trend cardiac markers, routine echocardiogram. [facility] Medical History Hypokalemia Hypocalcemia Hypomagnesemia Vitamin B12 [...] mass Atrial fibrillation Atherosclerotic heart disease of [place] coronary artery with unspecified angina pectoris Anxiety Hx of exercise stress test Family history of premature CAD Reports mother had quadruple bypass at age of 45 Myocardial infarction mild Fibromyalgia Chronic back pain Sleep apnea Neuropathy Cataract Peripheral artery disease Hyperlipidemia Diabetes Hypertension Surgical History History of below-knee amputation of right lower extremity 02/2024 [facility] [place]. Simon Hernández Vascular History of [...] 07/12/23[History Confirmed 10/10/24] flash glucose scanning reader (Roundsyle Jigar 2 [place]) #1 ea 12/28/23 [Rx Confirmed 10/10/24] flash [...] 32 gauge x 5/32 (Comfort EZ Pen [place]) #100 ea 04/15/24 [Rx Confirmed 10/10/24] hydroxyzine [...] % (Auto) 23.4 % (.) 10/10/24 15:42 [place] % (Auto) 9.5 % (.) 10/10/24 15:42 Eos % (Auto) 4.0 % (.) 10/10/24 15:42 Baso % (Auto) 1.3 % (.) 10/10/24 15:42 Nucleat RBC Rel Count 0.2 /100 WBC (0-0.5) 10/10/24 15:42 Neut # (Auto) 5.3 x10E3/uL (1.8-7.7) 10/10/24 15:42 Lymph # (Auto) 2.0 x10E3/uL (1.00-4.8) 10/10/24 15:42 [place] # (Auto) 0.8 x10E3/uL (0.0-0.8) 10/10/24 15:42 [...] 10/10/24 18 33 Signed By: 10/11/24 1358 [facility] Abdullahi Canchola [facility] Note Date/Time October 11, 2024 1:58pm [facility] [address] [place] [address] Hospitalist H&P Signed Patient: Myra Pickard MR#: [id number] : 1965 Acct:[id number] Age/Sex: 59 / M Adm Date: 5 Loc: Room: [address] [place] [address] Type: ADM INOo Attending Dr: Abdullahi Canchola [...] multivessel PCI's around the time of at [facility]. He hasstent information cards that are [...] Continue to trend cardiac markers, routine echocardiogram. [facility] Medical History Hypokalemia Hypocalcemia Hypomagnesemia Vitamin B12 [...] mass Atrial fibrillation Atherosclerotic heart disease of [place] coronary artery with unspecified angina pectoris Anxiety Hx of exercise stress test Family history of premature CAD Reports mother had quadruple bypass at age of 45 Myocardial infarction mild Fibromyalgia Chronic back pain Sleep apnea Neuropathy Cataract Peripheral artery disease Hyperlipidemia Diabetes Hypertension Surgical History History of below-knee amputation of right lower extremity 02/2024 [facility] [place]. Simon Hernández Vascular History of [...] [History Confirmed 10/10/24] flash glucose scanning reader (AvidiaStyle Jigar 2 [place]) #1 ea 12/28/23 [Rx Confirmed 10/10/24] flash [...] 32 gauge x 5/32 (Comfort EZ Pen [place]) #100 ea 04/15/24 [Rx Confirmed 10/10/24] hydroxyzine [...] % (Auto) 23.4 % (.) 10/10/24 15:42 [place] % (Auto) 9.5 % (.) 10/10/24 15:42 Eos % (Auto) 4.0 % (.) 10/10/24 15:42 Baso % (Auto) 1.3 % (.) 10/10/24 15:42 Nucleat RBC Rel Count 0.2 /100 WBC (0-0.5) 10/10/24 15:42 Neut # (Auto) 5.3 x10E3/uL (1.8-7.7) 10/10/24 15:42 Lymph # (Auto) 2.0 x10E3/uL (1.00-4.8) 10/10/24 15:42 [place] # (Auto) 0.8 x10E3/uL (0.0-0.8) 10/10/24 15:42 [...] <Electronically signed by Abdullahi Canchola DO> 10/11/24 7063 [facility] Work Phone: History general Narrative [...] Boss 07/2020 Hospitalization History Deep Depression, Anxiety; [facility] 11-11-10 Hospitalization History [facility] hypoxemia and hyper capnic respirtory failure 11/11/16 Hospitalization History chest pain [facility] 04/02/18 Unii Other History of Present illness NarrativeReturns in [...] impact [facility] blood [facility] Work Phone: History [...] medication regimen. He denies medication side effects. [facility] 600 DO Work Phone: History of [...] denies medication side effects. [facility] 250 DO Work Phone: Hospital course Narrative No data available for this section [facility] Discharge instructions No data available for this section [facility] Discharge instructionsAmbulatory Orders* Referral to Pain Management Time Frame: 08/30/24, Location: None Selected [facility] Work Phone: InstructionsNot on filedocumented in this [...] [facility] Progress note Author Kevon Viera [facility] Note Date/Time August 11, 2024 1:21 pm [facility] [address] [place] [address] Progress Note Signed Patient: Myra Pickard SR MR#: [id number] : 1965 Acct:[id number] Age/Sex: 59 / M Adm Date: 5 Loc: 3T Room: 4A8052-6 Type: ADM IN Attending Dr: Kevon Viera [...] signed by Kevon Viera MD> 08/11/24 1321 [facility] Work Phone: Progress note Author Maurice Francis [facility] Note Date/Time August 12, 2024 11: 47am [facility] [address] [place] [address] Nephrology Progress Note Signed Patient: Myra Pickard SR MR#: [id number] : 1965 Acct:[id number] Age/Sex: 59 / M Adm Date: 5 Loc: 3T Room: 9D6868-4 Type: ADM IN Attending Dr: Kevon Viera [...] Skin: No rashes , warm to touch BURR BENCH HAND: Awake,Alert, 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 Musculoskeletal: No swelling [...] 1,000 mls @ 125 mls/hr IV .Q8H [facility] Stop: 08/11/25 07:14 Last Admin: 08/12/24 08:26 Dose: 125 mls/hr Ferric Sodium Gluconate Complex 250 mg/ Sodium Chloride 270 mls @ 135 mls/hr IVQAM [facility] Stop: 08/14/24 10:59 Last Admin: 08/12/24 09:19 Dose: 135 mls/hr Insulin Aspart (Insulin Aspart 300 Units/3 Ml) 0 units SUBCUT TID.WM.HS [facility]; Protocol Stop: 08/11/25 07:59 Last Admin: 08/12/24 08:27 Dose: Not Given Ipratropium [place] (Ipratropium [place] 0.5 Mg/2.5 Ml Vial.Neb) 0.5 mg INHALATION QID.RESP [facility] Stop: 08/11/25 07:59 Last Admin: 08/12/24 08:51 Dose: 0.5 mg Isosorbide Mononitrate (Isosorbide Mononitrate 24hr Er 30 Mg Tab.Er.24h) 30 mg PO DAILY [facility] Stop: 08/11/25 08:59 Last Admin: 08/12/24 08:27 [...] TID [facility] Stop: 02/07/25 08:59 Last Admin: 08/12/24 08:27 Dose: 75 mg Ropinirole HCl (Ropinirole 1 Mg Tablet) 1 mg PO TID [facility] Stop: 08/11/25 08:59 Last Admin: 08/12/24 08:27 [...] signed by Maurice Francis MD> 08/12/24 1147 [facility] Work Phone: Progress note Author Kevon Viera [facility] Note Date/Time August 12, 2024 3:1 6pm [facility] [address] [place] [address] Hospitalist Progress Note Signed Patient: Myra Pickard MR#: [id number] : 1965 Acct:[id number] Age/Sex: 59 / M Adm Date: 5 Loc: 3T Room: [address] [place] [address] Type: ADM IN Attending Dr: Kevon Viera [...] 1 units TID.WM.HS [facility] Administration Protocol Ipratropium [place] 0.5 mg 08/11/24 08:00 08/12/24 12:31 Ipratropium [place] 0.5 Mg/2.5 Ml Vial.Neb INHALATION 08/11/25 07:59 [...] <Electronically signed by Kevon Viera MD> 08/12/24 0308 [facility] Work Phone: Progress note Author Maurice Francis [facility] Note Date/Time August 13, 2024 11: 06am [facility] [address] [place] [address] Nephrology Progress Note Signed Patient: Myra Pickard SR MR#: [id number] : 1965 Acct:[id number] Age/Sex: 59 / M Adm Date: 5 Loc: Room: [address] [place] [address] Type: ADM IN Attending Dr: Kevon Viera [...] Skin: No rashes , warm to touch BURR BENCH HAND: Awake,Alert, 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 Musculoskeletal: No swelling [...] 25 Mg Tablet) 25 mg PO HS [facility] Stop: 08/11/25 21:59 Last Admin: 08/12/24 21:48 Dose: 25 mg Aspirin (Aspirin 81 Mg Tablet.) 81 mg PO DAILY [facility] Stop: 08/11/25 08:59 Last Admin: 08/13/24 08:25 [...] 300 Units/3 Ml) 0 units SUBCUT TID.WM.HS [facility]; Protocol Stop: 08/11/25 07:59 Last Admin: 08/13/24 08:25 Dose: 1 units Ipratropium [place] (Ipratropium [place] 0.5 Mg/2.5 Ml Vial.Neb) 0.5 mg INHALATION QID.RESP [facility] Stop: 08/11/25 07:59 Last Admin: 08/13/24 07:54 Dose: 0.5 mg Isosorbide Mononitrate (Isosorbide Mononitrate 24hr Er 30 Mg Tab.Er.24h) 30 mg PO DAILY [facility] Stop: 08/11/25 08:59 Last Admin: 08/13/24 08:25 Dose: 30 mg Metoprolol Tartrate (Metoprolol Tartrate 100 Mg Tablet) 100 mg PO BID [facility] Stop: 08/11/25 08:59 Last Admin: 08/13/24 08:25 Dose: 100 mg Pantoprazole Sodium (Pantoprazole 40 Mg Tablet.Dr) 40 mg PO BID [facility] Stop: 08/11/25 08:59 Last Admin: 08/13/24 08:25 Dose: 40 mg Pregabalin (Pregabalin 75 Mg Capsule) 75 mg PO TID [facility] Stop: 02/07/25 08:59 Last Admin: 08/13/24 08:25 Dose: 75 mg Ropinirole HCl (Ropinirole 1 Mg Tablet) 1 mg PO TID [facility] Stop: 08/11/25 08:59 Last Admin: 08/13/24 08:25 Dose: 1 mg Tamsulosin HCl (Tamsulosin 0.4 Mg Cap.Er.24h) 0.4 mg PO BID [facility] Stop: 08/11/25 08:59 Last Admin: 08/13/24 08:25 Dose: 0.4 mg Tizanidine HCl (Tizanidine 4 Mg Tablet) 4 mg PO QHS [facility] Stop: 08/11/25 21:59 Last Admin: 08/12/24 21:48 [...] Maurice Francis MD 08/13/24 0855 Signed By: <Electronically signed by Maurice Francis MD> 08/13/24 1106 [facility] Work Phone: reason for visit Narrative* CV Imaging (Routine) - Authorized Specialty Diagnoses / Procedures Referred By Contac t Referred To Contact Diagnoses Chest pain, unspecified type Procedures Nuclear Stress Test CHG MYOCARDIAL SPECT MULTIPLE STUDIES Pascale Arnold MD [address] [facility] [address], [address] [address] Phone: tel: fax: [address] [phone] Phone: tel: Referral ID Status Reason Start Date Expiration Date V isits Requested Visits Authorized [id number] Authorized 10/11/2024 10/11/2025 5 1 [facility] Work Phone: Reason for visit Narrative* CV Imaging (Routine) - Authorized Specialty Diagnoses / Procedures Referred By Contac t Referred To Contact Diagnoses Chest pain, unspecified type Procedures Nuclear Stress Test CHG MYOCARDIAL SPECT MULTIPLE STUDIES Pascale Arnold MD [address] [facility] [address], [address] [address] Phone: tel: fax: [address] [phone] Phone: tel: Referral ID Status Reason Start Date Expiration Date V isits Requested Visits Authorized [id number] Authorized 10/11/2024 10/11/2025 5 1 [facility] Work Phone: Chief Complaint MYRA PICKARD is [...] lwr bilat mult lev/PVR Mike Montes MD [address], [address] [address] Referral ID Status Reason Start Date Expiration Date V isits Requested Visits Authorized [id number] Pending Review 10/18/2023 10/17/2024 1 1 Specialty Diagnoses / Procedures Referred By Contac t Referred To Contact Radiology Diagnoses 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) Procedures CT angiogram abdominal aorta with runoff Mike Montes MD [address], [address] [address] Phone: Referral ID Status Reason Start Date Expiration Date V isits Requested Visits Authorized [id number] Pending Review 10/18/2023 10/17/2024 1 1 Referral ID Status Reason Start Date Expiration Date V isits Requested Visits Authorized [id number] Pending Review 10/18/2023 10/17/2024 1 1 Referral ID Status Reason Start Date Expiration Date V isits Requested Visits Authorized [id number] Pending Review 10/18/2023 10/17/2024 1 1 Specialty Diagnoses / Procedures Referred By Contac t Referred To Contact Cardiology Diagnoses Shortness of breath Procedures Transthoracic Echo Complete DE ECHO TTHRC R-T 2D W/WOM-MODE COMPL SPEC&COLR D Bernard De La Cruz MD [address] [facility] [address], [address] [address] Referral ID Status Reason Start Date Expiration Date Visits Requested Visits Authorized [id number] Authorized Perform Procedure 01/01/2024 12/31/2024 1 1 Specialty Diagnoses / Procedures Referred By Contac t Referred To Contact Diagnoses Encounter for pre-operative cardiovascular clearance Procedures ECG 12 Lead Raulito Inman MD [address] [facility] [address], [address] [address] Referral ID Status Reason Start Date Expiration Date V isits Requested Visits Authorized [id number] Authorized 10/24/2023 10/23/2024 1 1 Specialty Diagnoses / Procedures Referred By Contac t Referred To Contact Cardiology Diagnoses History of PTCA Procedures Follow Up In Cardiology Raulito Inman MD [address] [facility] [address], [address] [address] Referral ID Status Reason Start Date Expiration Date V isits Requested Visits Authorized [id number] Authorized 10/24/2023 10/23/2024 1 1 Reason CANCELLED consult and treat; previous patient of Dr. Sharpe last seen in 2020; persisting intractable headaches Diagnosis 1 Acute intractable he adache, unspecified headache type (R51.9) Referral Organization [facility] [place] Referring Provider First Name Teresa Referring Provider Last Name Jettjoe Referring Provider Specialty Family [facility] Referred Organization [facility] Referred Provider Lyssa Sharpe Referred Address [address] [place] [phone] Referred Provider Specialty Neurology Referral Priority Routine [...] itus with circulatory disorder (E11.59) Referral Organization [facility] Family Irene Colunga Referring Provider First Name Teresa Referring Provider Last Name Rory Referring Provider Specialty Family Jono hunter Referred Organization [facility] Referred Provider Doris Barnes Referred Address [address],[place], [place],[address] Referred Provider Specialty Nurse Jono calderon Referral Priority Routine Referral Appointment Date 2022-03-31 General Notes Micheal, Verona M 022 02:28:10 PM >Received today and sent P2P Fore, [place]ona M 02/16/2022 07:50:21 AM >Patient has been scheduled [...] 4:21pm Chronic kidney disease, stage 3b Decembe 2023 4:21pm Diabetic nephropathy associa jorge with [...] 7am Non compliance w medication regimen Darrell h 2024 8:37am CAD (coronary artery disease) October [...] Procedures ECG 12 Lead Raulito Inman MD [address] [place] [address], [address] [address] Referral ID Status Reason Start Date Expiration Date V isits Requested Visits Authorized [id number] Authorized 10/24/2023 10/23/2024 1 1 Specialty Diagnoses / Procedures Referred By Contac t Referred To Contact Cardiology Diagnoses Shortness of breath Procedures Transthoracic Echo Complete DE ECHO TTHRC R-T 2D W/WOM-MODE COMPL SPEC&COLR D Bernard De La Cruz MD [address] [place] [address] 2, [address] [address] Referral ID Status Reason Start Date Expiration Date Visits Requested Visits Authorized [id number] Authorized Perform Procedure 01/01/2024 12/31/2024 1 1 Reason Comments New Patient Poor Circulation - R eferral from Dr. Soto - No appt available in [place] until 11/02/2023; patient is having right leg and foot pain at a 10 right now since surgery 2 weeks ago Specialty Diagnoses / Procedures Referred By Brett t Referred To Contact Vascular Surgery Diagnoses Poor circulation Paula Soto, DPM [address] [place] [address] [facility] [address] [place] [address] Referral ID Status Reason Start Date Expiration Date Visits Requested Visits Authorized [id number] Pending Review Specialty Services Required 10/13/2023 10/12/2024 1 1 Reason Comments Critical limb ischemia of ri ght lower extremity with gangre Follow up on testing completed in [facility] t Check insession Reason Comments Angioplasty RLE follow up - procedure at [facility]. 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 AT [facility] Incision w ith toshia, well approximated [...] Fagan MD Other Provider Active Start: Sarika [facility] 2024 End: August 13, 2024 Team Status: [...] 2023 Team Status: Active Member Role Status ASHLI Ponce Attending Provider Active Start: December 28, 2023 [...] Status: Inactive Member Role Status Dates Teresa Kuns , DO Primary Care Provider Active Shana Mclaughlin PA-C Attending Provider Active Team Status: Inactive Member Role Status Dates Teresa Lynch DO Primary Care Provider Active Teresa Lynch DO [facility] Attending Provider Active Team Status: Inactive Member Role Status Dates Teresa Lynch , DO Primary Care Provider Active [...] Provider Active Sta rt: October 06, 2023 Clinic Clerk Relationship Specialty Start Date End Date Teresa [...] April 24, 2024 End: April 24, 2024 Clinic Clerk Relationship Specialty Start Date End Date Teresa Lynch DO PCP - General 04/17/19 Namita Mercer LPN Care Bobbin Sorter 12/25/23 Clinic Clerk Relationship Specialty Start Date End Date Teresa Lynch MD [facility] [place] [id number] PCP - External PCP 03/05/23 Team Status: [...] Jeanie Conde MD Other Provider Active Start: M ay 2024 Andrew Montes MD Other Provider Active Start: October 10, 2024 Shaheed Barboza MD Other Provider Active Start: M ay 2024 Maryann Pierre , [facility]- Other Provider Active Sta rt: October 10, [...] Amina Fagan MD Other Provider Active Start: M ay 2024 End: October 26, 2024 Maurice Francis MD Other Provider Active Start: Ma bartolome 2024 End: October 26, 2024 Team Status: [...] November 05, 2024 End: November 05, 2024 Clinic Clerk Relationship Specialty Start Date End Date Teresa Lynch DO [address] [place] [address] PCP - General Family Medicine 11/04/24 Clinic Clerk Relationship Specialty Start Date End Date Teresa Lynch DO [address] [place] [address] PCP - General Family Medicine 11/04/24 Clinic Clerk Relationship Specialty Start Date End Date Teresa Lynch DO [address] [place] [address] PCP - General Family Medicine 11/04/24 Goals (unrecognized section and content) Goals may [...] [facility] DATE CREATED AUTHOR AUTHOR'S ORGANIZ ATION 01/27/2023 [facility] DATE CREATED AUTHOR AUTHOR'S ORGANIZ ATION 02/16/2023 [facility] DATE CREATED AUTHOR AUTHOR'S ORGANIZ ATION 02/16/2023 [facility] DATE CREATED AUTHOR AUTHOR'S ORGANIZ ATION 10/22/2023 [facility] DATE CREATED AUTHOR AUTHOR'S ORGANIZ ATION 11/16/2023 [facility] DATE CREATED AUTHOR AUTHOR'S ORGANIZ ATION 11/25/2023 [facility] DATE CREATED AUTHOR AUTHOR'S ORGANIZ ATION 01/10/2024 [facility] DATE CREATED AUTHOR AUTHOR'S ORGANIZ ATION 02/13/2024 [facility] DATE CREATED AUTHOR AUTHOR'S ORGANIZ ATION 02/14/2024 [facility] DATE CREATED AUTHOR AUTHOR'S ORGANIZ ATION 02/15/2024 [facility] DATE CREATED AUTHOR AUTHOR'S ORGANIZ ATION 02/16/2024 [facility] DATE CREATED AUTHOR AUTHOR'S ORGANIZ ATION 02/17/2024 [facility] DATE CREATED AUTHOR AUTHOR'S ORGANIZ ATION 02/18/2024 [facility] DATE CREATED AUTHOR AUTHOR'S ORGANIZ ATION 02/19/2024 [facility] DATE CREATED AUTHOR AUTHOR'S ORGANIZ ATION 02/20/2024 [facility] DATE CREATED AUTHOR AUTHOR'S ORGANIZ ATION 02/21/2024 [facility] DATE CREATED AUTHOR AUTHOR'S ORGANIZ ATION 02/22/2024 [facility] DATE CREATED AUTHOR AUTHOR'S ORGANIZ ATION 02/23/2024 [facility] DATE CREATED AUTHOR AUTHOR'S ORGANIZ ATION 02/24/2024 [facility] DATE CREATED AUTHOR AUTHOR'S ORGANIZ ATION 03/14/2024 [facility] DATE CREATED AUTHOR AUTHOR'S ORGANIZ ATION 05/29/2024 [facility] DATE CREATED AUTHOR AUTHOR'S ORGANIZ ATION 11/08/2024 [facility] DATE CREATED AUTHOR AUTHOR'S ORGANIZ ATION 12/27/2024 [facility] DATE CREATED AUTHOR AUTHOR'S ORGANIZ ATION 02/04/2025 [facility] DATE CREATED AUTHOR AUTHOR'S ORGANIZ ATION 02/09/2025 [facility] FOR RECORDS PERTAINING TO PATIENTS [...] BE BASED ON THE PRIMARY CLINICAL RECORDS. [employer] [facility]. provides no warranty or guarantee of the accuracy or completeness of information in this document.
--- NOTE | 2025-02-14 21:14 | PC.NURSE ---
Left leg heena in appearance. Has 2 small oopen wound on little and 4 th toe covered with band aid
[2025-02-14 21:40] LABS: Hematocrit 50.3 % (42.0-54.0); Hemoglobin 17.5 g/dL (14.0-18.0); Immature Granulocytes Abs Auto 0.04 10^3/uL (0.00-0.03); Immature Granulocytes Pct Auto 0.5 % (0.0-0.5); Lymphocytes Absolute Auto 1.2 10^3/uL (1.2-3.8); Mean Corpuscular HGB Conc 34.8 g/dL (29.9-35.2); Mean Corpuscular Hemoglobin 30.1 pg (25.9-34.0); Mean Corpuscular Volume 86.6 fL (80.0-94.0); Platelet Count 132 10^3/uL (150-450); Red Blood Count 5.81 10^6/uL (4.70-6.10); White Blood Count 8.2 10^3/uL (4.0-11.0)
[2025-02-14] MEDS: lidocaine HCL 15 ML, MAG HYDROX/ALUMINUM HYD/SIMETH 30 ML, HYOSCYAMINE SULFATE 0.25 MG PO (21:44)
[2025-02-14 21:45] LABS: Anion Gap 16.2; Blood Urea Nitrogen 23.0 mg/dL (7.0-18.0); Calcium 9.1 mg/dL (8.5-10.1); Carbon Dioxide 25.8 mmol/L (21.0-32.0); Chloride 101 mmol/L (98-107); Estimated GFR (African America 42 (>=60 mL/min/1.73m^2); Estimated GFR (Non-African Ame 34 (>=60 mL/min/1.73m^2); Glucose 252 mg/dL (74-106); Potassium 4.0 mmol/L (3.5-5.1); Sodium 139 mmol/L (136-145)
[2025-02-14] MEDS: NITROGLYCERIN 0.4 MG BOTTLE SL ×2 (22:54→23:00)
[2025-02-14] MEDS: FENTANYL CITRATE/PF 100 MCG/2 ML VIAL 50 MCG IV (23:27)
--- NOTE | 2025-02-14 23:30 | CT_ITS ---
The [address] [address] Patient Name: MYRA FELIPE MRN: [id number] date: 1965 Sex: M Assigned Patient Location: ER Current Patient Location: ER Accession/Order Number: [id number] Exam Date: 02/14/2025 23:41 Report Date: 02/15/2025 00:01 At the request of: DALTON TORRES MD Procedure: CT head/brain wo con CT BRAIN WITHOUT CONTRAST: CLINICAL HISTORY: altered mental status COMPARISON: 03/04/2023 MRI TECHNIQUE: Contiguous axial unenhanced images were obtained through the brain. This CT exam was performed using one or more following dose reduction techniques: Automated exposure control, adjustment of the mA and/or kV according to patient size, or use of iterative reconstruction technique. FINDINGS: There is no evidence of midline shift, intra or extra-axial fluid collection, hemorrhage or CT evidence of acute large vascular distribution stroke. Mild central involutional changes Visualized intraorbital contents appear unremarkable. Mild paranasal sinus disease. The surrounding soft tissues are normal. CT/CT head/brain wo con IMPRESSION: NO ACUTE INTRACRANIAL ABNORMALITY. Impression dictated by: Omi Aldana M.D. 02/15/2025 12:01 AM Dictation Location: [place] [address] Electronically authenticated by: [id number] Y Date: 02/15/2025 00:01
[2025-02-15] VITALS (24 sets, daily range): BP systolic 115–156; BP diastolic 68–91; PULSE 62–96; TEMP 36.3–36.7; O2SAT 91–98; BMI 27.2
[2025-02-15 00:30] LABS: Partial Thromboplastin Time 25.9 sec (22.3-36.2)
[2025-02-15] MEDS: HEPARIN SODIUM,PORCINE/D5W 25,000 UNIT/500 ML IV.SOLN 29.937 UNIT IV (01:19)
[2025-02-15] MEDS: HEPARIN SODIUM (PORCINE) 5,000 UNIT/ML VIAL 7300 UNIT IV (01:19)
--- OUTSIDE RECORDS SUMMARY | 2025-02-15 02:07 | XMS_ITS | CCD ---
Author Organization [facility] Care Team Providers Care Molding Engineer Name Role Phone Teresa Lynch Unavailable Unavailable Unavailable Teresa Lynch Unavailable Amina Fagan Unavailable Judd Verona Unavailable Doris Barnes Unavailable DO Teresa Lynch Primary Care Provider [phone] JERARDO Mclaughlin Attending Provider DO Teresa Lynch Attending Provider SAMSA ., DUARTE Attending Unavailable ELAINE Hernandez, DUARTE Admitting Unavailable CONOR, DR LYSSA Blum Consulting Unavailable RORY, DR MOORE Primary Care Unavailable DUARTE MÁRQUEZ Consulting Unavailable TERESA LYNCH Primary Care Physician Rory, Dr. Teresa Orona Primary Care UnavailDoolres Vaughn Attending Unavailable Dolores Pickard Attending Unavailable Dolores Pickard Referring Unavailable Rory, Dr. Teresa Orona Primary Care Unavaila Dolores Izquierdo Attending Unavailable Dolores Pickard Referring Unavailable Rory, Dr. Teresa Orona Primary Care Unavaila rashmi Inman II, Dr. Raulito Orona Referring Unavailable Rory, Dr. Teresa Orona Primary Care Unavailkita Inman II, Dr. Raulito Orona Attending Unavailable DO Teresa Lynch Primary Care Provider [phone] MD Abdullahi Wilson Emergency Provider DO Teresa Lynch Primary Care Provider MD Abdullahi Wilson Emergency Provider JERARDO Mclaughlin Attending Provider JERARDO Mclaughlin Referring Provider LINDSEY Soto Attending Provider DO Teresa Lynch Primary Care Provider Teresa Lynch DO Primary Care Provider [phone] MIKE MONTES Attending Unavailable PAULA SOTO Referring [...] Unavailable Mike Montes Consulting Unavailable MD Mike Monets Admitting Unavailable MD Mike Montes Consulting Unavailable [...] Mike Weathers Referring Unavailable Simon, MD Mike Weathers Admitting Unavailable Simon, MD Mike Weathers Attending Unavailable Simon, MD Mike Weathers Referring Unavailable Simon, Mike F. Admitting Unavailable Simon, Albertamed F. Consulting Unavailable Simon, Mike F. Referring Unavailable Raulito Gilliland Attending Unavailable Simon, Albertamed F. Consulting Unavailable Simon, Albertamed F. Consulting Unavailable LINDSEY Soto Attending Provider MD Kait Dan Emergency Provider [phone] DO Teresa yLnch Primary Care Provider [phone] MD João Powell Admit Provider MD João Powell Attending Provider [phone] MD Kait Dan Emergency Provider DO Teresa Lynch Primary Care Provider MD João Powell Admit Provider MD João Powell Attending Provider [phone] MD Lyssa Sharpe Other Provider [phone] MD Mike Burleson Other Provider [phone] ALBERT MONTESAMED F Attending Unavailable SIMONALBERTAMED F Attending Unavailable Curt, LINDSEY Hooker Attending Provider [phone] MD Kait Dan Emergency Provider [phone] DO Teresa Lynch Primary Care Provider MD João Powell Admit Provider MD João Powell Attending Provider [phone] MD Lyssa Sharpe Other Provider MD Mike Burleson Other Provider DO Bonilla Rubin Emergency Provider [phone] DO Luther Dozier Other Provider MD Job James Other Provider MD Remberto Ervin Attending Provider DO Scottie Bonilla Emergency Provider [phone] DO Luther Dozier Other Provider MD oJb James Other Provider [phone] MD Remberto Ervin Attending Provider [phone] Kait Dan MD Emergency Provider Teresa Lynch DO Primary Care Provider [phone] João Powell MD Admit Provider João Powell MD Attending Provider Lyssa Sharpe MD Other Provider Mike Burleson MD Other Provider Scottie BRICENO, Bonilla Emergency Provider Luther Dozier DO Other Provider Jacob HERRERA, Job Other Provider Remberto Ervin MD Attending Provider Mike Burleson MD Attending Provider Marybel Sanchez Unavailable Unavailable Teresa Lynch DO Primary Care Provider Namita Mercer LPN. Unavailable Unava ilable Teresa Lynch MD Unavailable Yeyo ROWE Attending Unavailable Yeyo ROWE Admitting Unavailable Yeyo ROWE Attending Unavailable Elan Antonio Attending Unavailable Unavailable Primary Care Provider Unavailabl e Teresa Lynch DO Primary Care Provider [phone] Negro Hu MD Attending Provider Teresa Lynch DO Primary Care Provider Negro Hu MD Attending Provider Duncan MD, Francisco D Emergency Provider [phone] Sina HERRERA, Marge Admit Provider [phone] Sina HERRERA, Marge Attending Provider Maximilaino HERRERA, Kevon Baum Attending Provider Gracia HERRERA, Amina Other Provider Angelica KURTZ, Jez Martin Emergency Provider [phone] Abdulalhi Canchola DO Admit Provider Abdullahi Canchola DO [...] Provider Shaheed Barboza MD Other Provider Gabby [facility], Maryann Hopkins Other Provider Teresa Lynch DO Primary Care Provider [phone] Teresa Lynch DO Attending Provider [phone] Maurice Francis MD Other Provider Teresa Lynch [...] Unavailable Teresa Lynch DO Primary Care Provider [phone] Francisco Duncan MD Emergency Provider [phone] Marge Andino MD Admit Provider [phone] Kevon Viera MD Attending Provider [phone] Amina Fagan MD Other Provider Jez Dominguez PA-C Emergency Provider Abdullahi Canchola DO Admit Provider [phone] Abdullahi Canchola DO Attending Provider [phone] Teresa Lynch DO Attending Provider Maurice Francis [...] drug (finding) 11-05-19 14 Anaphylactoid reaction (disorder) [facility] (20 sources) Acetaminophen / oxyCODONE Drug Allergy 03-14-20 17 vomiting [facility] Other (20 sources) tamsulosin; Translations: [TAMSULOSIN] Drug Allergy 07-14-19 21 [facility] (20 sources) PENICIILIN Propensity to adverse reactions SWELLING OF AIRWAY [facility] Other (20 sources) Acetaminophen; Translations: [ACETAMINOPHEN] Drug Allergy 07-14-19 21 [facility] (20 sources) oxyCODONE; Translations: [Oxycodone] Drug Allergy 02-08-20 17 Vomiting [facility] (1 source) Penicillins Drug allergy (disorder) 09-23-19 14 [facility] Repository (20 sources) Penicillin G; Translations: [penicillin G benzathine] Drug Allergy [facility] (12 sources) Penicillin; Translations: [Penicillin] Drug Allergy anaphylaxis, Anaphylactoid reaction (disorder) [facility] (20 sources) Latex Allergy to substance 03-27-20 23 Unknown, Dermatitis, Itching, Rash [facility] (20 sources) Penicillins Drug Allergy 11-05-19 14 [facility] (18 sources) Isosorbide; Translations: [ISOSORBIDE MONONITRATE] Drug Allergy 08-05-19 15 Other (See Comments) [facility] Repository (1 source) Acetaminophen / oxyCODONE Drug Allergy 03-14-20 17 [facility] (6 sources) Isosorbide Dinitrate Drug Allergy 08-05-19 15 Other, Other (See Comments) [facility] (1 source) Latex Propensity to adverse reactions 03-27-20 23 Dermatitis, Itching, Rash, Unknown [facility] (1 source) Penicillins Drug Intolerance 11-05-19 14 Anaphylaxis, Hives [facility] (6 sources) Propoxyphene Drug Allergy 03-14-20 17 [facility] (1 source) Latex Drug allergy (disorder) 11-06-19 25 [facility] Repository (1 source) Penicillins Drug allergy (disorder) 11-06-19 25 [facility] Repository (1 source) tamsulosin Drug Allergy 07-31-19 24 [facility] Repository (6 sources) Penicillins Propensity to adverse reactions to drug 11-05-19 14 Anaphylaxis, Hives [facility] Medications Current Medications Medication Drug Class(es) [...] 1:00am July 14, 2020 12:39pm Start: 10-10-2014 [place] 325 mg-5 mg oral tablet 1 tab(s), Oral, q4hr for pain, 12 tab(s), Refill(s) 0 Start Date: 10/10/14 Status: Ordered [id number] 200 actuat albuterol 0.09 mg/actuat metered dose [...] Date: 10/31/13 Status: Ordered Flash Glucose Scanning [place] (Freestyle Jigar 2 [place]) misc (12 sources) Start: 12-28-2023 Flash Glucose Scanning [place] (Freestyle Jigar 2 [place]) misc Active 0 .Route December 27, 2023 11:00pm As directed Start: 12-28-2023 Flash Glucose Scanning [place] (Freestyle Jigar 2 [place]) misc Active 0 .Route December 28, 2023 12:00am As directed Start: 12-28-2023 Flash Glucose Scanning [place] (Freestyle Jigar 2 [place]) misc Active 0 .ROUTE December 28, 2023 [...] hr tablet Indications: Coronary artery disease involving [place] coronary artery of [place] heart without angina pectoris Take 1 tablet [...] 01-02-2018 End: 06-25-2024 [facility] [...] days. 60 tablet 11/08/2023 12/08/2023 Active sennosides, jail 8.6 mg oral tablet (3 sources) Start: [...] BID, # 180 cap(s), Refills(s) 3, Pharmacy: [facility]/pharmacy #[id number], 182, cm, 09/27/24 10:46:00 EDT, Height/Length [...] Refills: 0 Ordered: 26-Oct-2021 DO Active Tiotropium Nora (Spiriva With Handihaler) 18 mcg capsule, w/inhalation device (20 sources) Start: 03-03-2024 take 1 capsule by inhalation once daily Tiotropium Nora (Spiriva With Handihaler) 18 mcg capsule, w/inhalation device Active 1 CAP INHALATION Daily March 02, 2024 11:00pm puncture 1 cap using device; one dose = 2 inhalations Start: 03-03-2024 take 1 capsule by in halation once daily Tiotropium Nora (Spiriva With Handihaler) 18 mcg capsule, w/inhalation device Active 1 CAP INHALATION Daily March 03, 2024 12:00am puncture 1 cap using device; one dose = 2 inhalations Start: 07-12-2023 End: 03-03-2024 take 1 capsule by inhalation once daily Tiotropium Nora (Spiriva With Handihaler) 18 mcg capsule, w/inhalation device Discontinued 1 CAP INHALATION Daily July 12, 2023 12:00am March 03, 2024 1:29pm puncture 1 cap using device; one dose = 2 inhalations Start: 07-12-2023 End: 03-03-2024 take 1 capsule by inhalation once daily Tiotropium Nora (Spiriva With Handihaler) 18 mcg capsule, w/inhalation device Discontinued 1 CAP INHALATION Daily July 12, 2023 1:00am March 03, 2024 2:29pm puncture 1 cap using device; one dose = 2 inhalations Start: 07-12-2023 take 1 capsule by in halation once daily Tiotropium Nora (Spiriva With Handihaler) 18 mcg capsule, w/inhalation device Active 1 CAP INHALATION Daily July 12, 2023 1:00am puncture 1 cap using device; one dose = 2 inhalations Start: 07-12-2023 take 1 capsule by in halation once daily Tiotropium Nora (Spiriva With Handihaler) 18 mcg capsule, w/inhalation [...] day(s), # 12 tab(s), Refills(s) 0, Pharmacy: [facility]/pharmacy #[id number], 182, cm, 08/02/24 9:08:00 EST, Height/Length [...] End: 03-08-2024 Blood-Glucose Meter,Continuous (Freestyle Jigar 3 [place]) misc (10 sources) Start: 12-25-2023 End: 12-28-2023 Blood-Glucose Meter,Continuous (Freestyle Jigar 3 [place]) misc Discontinued 0 .Route December 24, 2023 11:00pm December 28, 2023 10:03am As directed Start: 12-25-2023 End: 12-28-2023 Blood-Glucose Meter,Continuo us (Freestyle Jigar 3 [place]) misc Discontinued 0 .Route December 25, 2023 [...] 12:00am December 28, 2023 11:03am As directed Blood-Glucose,Unit Educator,Cont (Freestyle Jigar 3 [place]) misc (2 sources) Start: 12-25-2023 End: 12-28-2023 Blood-Glucose,Unit Educator,Cont (Freestyle Jigar 3 [place]) misc Discontinued 0 .Route 1 December 25, [...] Start: 08-12-2024 take 2 tablets by [facility] once at mealtime Calcium Carbonate-Vitamin D3 [...] 08-23-2024 Start: 01-30-2023 take 1 capsule by [facility] once daily doxycycline hyclate 100 mg Cap 100 mg = 1 cap(s), Oral, Daily, Take 1 pill the day before the procedure and 1 pill after the procedure, # 2 cap(s), Refills(s) 0, Pharmacy: [facility]/pharmacy #[id number], 182, cm, 01/30/23 10:24:00 EDT, Height/Length [...] End: 03-13-2024 Start: 03-03-2024 End: 03-13-2024 Ipratropium Nora (Atroven t Hfa) 17 mcg/actuation HFA aerosol [...] 03-08-2024 Start: 02-21-2024 take 2 tablets by [facility] every six hours as needed for [...] tablet 11/14/2023 11/21/2023 Active polyethylene glycol 3350 [id number] mg powder for oral solution (20 sources) [...] [Coronary atherosclerosis of unspecified type of vessel, [place] or graft] Onset: 11-05-2013 Resolved: 02-15-2022 Chronic [...] limb due to atherosclerosis; Translations: [Atherosclerosis of [place] arteries of extremities with gangrene, right leg] [...] sources) Long-term current use of insulin; 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 Will do it here at [place]. Other connective tissue disease (1 source) Pain [...] Pascale Arnold 02/05/2025 6:05 PM Dictation workstation: [id number] [facility] Interpreted By: Pascale Sweeney and Giannuzzi Michael STUDY: MYOCARDIAL PERFUSION STRESS TEST WITH LEXISCAN Performing facility: [facility], [address] [place] [address], [address], [place] [address] [facility] Provider: Pascale Arnold MD, [facility] PCP: Dr. Wm Lynch Supervising provider: Lui Schmidt DO, [facility] INDICATION: Signs/Symptoms: ,R07.9 Chest pain, unspecified HISTORY: Gender: M; Age: 59 y/o ; Height: HT 182.9 cm cm; Weight: WT 95.709 kg kg. Chest Pain; CAD; High Cholesterol; Diabetes; SOB; COPD; Quit smoking 4 years ago. Cardiac catheterization on 2017. PTCA on 2017. COMPARISON: Previous nuclear testing completed at [facility]. ACCESSION NUMBER(S): [id number] ORDERING CLINICIAN: PASCALE ARNOLD TECHNIQUE: ONE DAY [...] PERFUSION STRESS TEST WITH LEXISCAN Performing facility: [facility], [address] [place] [address], [address], [place] [address] [facility] Provider: Pascale Arnold MD, [facility] PCP: Dr. Wm Lynch Supervising provider: Lui Schmidt DO, [facility] INDICATION: Signs/Symptoms: ,R07.9 Chest pain, unspecified HISTORY: Gender: M; Age: 59 y/o ; Height: HT 182.9 cm cm; Weight: WT 95.709 kg kg. Chest Pain; CAD; High Cholesterol; Diabetes; SOB; COPD; Quit smoking 4 years ago. Cardiac catheterization on 2017. PTCA on 2017. COMPARISON: Previous nuclear testing completed at [facility]. ACCESSION NUMBER(S): [id number] ORDERING CLINICIAN: PASCALE ARNOLD TECHNIQUE: ONE DAY [...] Pascale Arnold 02/05/2025 6:05 PM Dictation workstation: [id number] [facility] Work Phone: [facility] Work Phone: Radiology Study observation (narrative) [facility] Work Phone: NUCLEAR STRESS TESTon 2024 NUCLEAR STRESS TEST Interpreted By: Pascale Sweeney, and Orquidea Fernando STUDY: MYOCARDIAL PERFUSION STRESS TEST WITH LEXISCAN Performing facility: [facility], [address] [place] [address], [address], [address] Provider: Pascale Anrold MD, FACC PCP: Dr. Wm Lynch Supervising provider: Lui Schmidt DO, FAC INDICATION: Signs/Symptoms: ,R07.9 Chest pain, unspecified HISTORY: Gender: M; Age: 59 y/o ; Height: HT 182.9 cm cm; Weight: WT 95.709 kg kg. Chest Pain; CAD; High Cholesterol; Diabetes; SOB; COPD; Quit smoking 4 years ago. Cardiac catheterization on 2017. PTCA on 2017. COMPARISON: Previous nuclear testing completed at [facility]. ACCESSION NUMBER(S): [id number] ORDERING CLINICIAN: PACSALE ARNOLD TECHNIQUE: ONE DAY protocol. Stress injection: [...] Pascale Arnold 02/05/2025 6:05 PM Dictation workstation: [id number] [facility] Reminderson 02-04-2025 Reminders Reminders From: Clair Valverde To: EU - Administrative; Sent: 07/05/2024 09:08:37 EST Show up: 02/02/2025 10:08:00 EDT Subject: 1 yr f/u w/psa Due Date/Time: 05/27/2025 09:08:00 EST Reminder/Recall Pt needs scheduled for 1yr f/u w/psa w/PRW in May 2025. LVm w/ patient stating they needed to call and get appointment scheduled. Normal [facility] A1C with Estimated Average [facility] 10-26-2024 Glucose [Mass/Vol] 192 mg/dL Normal [facility] Comment on above: Result Comment: PERF ORMED BY:[facility] [place], [place] [id number] MEDICAL DIRECTORBREANNE RUTHERFORD M.D. Performed By: #### A 1C [facility] ####[facility] [place] [address] [facility] HbA1c (Bld) [Mass fraction] 8.3 % High 4.3-5.6 [facility] Comment on above: Result Comment: Incr eased risk for diabetes: 5.7 - 6.4 diabetes: >6.4 glycemic control for adults with diabetes: <7.0 Performed By: #### A 1C [facility] ####[facility] [address] [place] [address] [facility] Alanine aminotransferase [En zymatic activity/volume] in Serum or PlasmaOrdered By: Teresa Lynch on 10-26-2024 ALT [Catalytic activity/Vol] Alanine aminotransferase [Enzymatic activity/volume] in Serum or Plasma [facility] Albumin [Mass/volume] in Ser um or Plasma by Bromocresol green (BCG) dye binding methoOrdered By: Teresa Lynch on 10-26-2024 Albumin BCG dye [Mass/Vol] Albumin [Mass/volume] in Serum or Plasma by Bromocresol green (BCG) dye binding metho 3.5-5.7 [facility] Alkaline phosphatase [Enzyma tic activity/volume] in Serum or PlasmaOrdered By: Teresa Lynch on 10-26-2024 ALP [Catalytic activity/Vol] Alkaline phosphatase [Enzymatic activity/volume] in Serum or Plasma High 34-104 [facility] Anisocytosis LM Ql (Bld)Orde red By: Maurice Francis on 10-26-2024 Anisocytosis Ql (Bld) Anisocytosis [Pres ence] in Blood by Light microscopy [facility] Appearance of UrineOrdered B y: Amina Fagan on 10-26-2024 Appearance (U) Urine appearance Clear [facility] Aspartate aminotransferase [ Enzymatic activity/volume] in Serum or PlasmaOrdered By: Teresa Lynch on 10-26-2024 AST [Catalytic activity/Vol] Aspartate aminotransferase [Enzymatic activity/volume] in Serum or Plasma 13-39 [facility] Basophils Auto (Bld) [#/Vol] Ordered By: Maurice Francis on 10-26-2024 Basophils (Bld) [#/Vol] Automated basophil count 0.0-0.2 [facility] Basophils/100 WBC Auto (Bld) Ordered By: Maurice Francis on 10-26-2024 Basophils/100 WBC (Bld) Automated basophil % . [facility] Bilirubin Test strip Ql (U)O rdered By: Amina Fagan on 10-26-2024 Bilirubin Ql (U) Bilirubin.total [Presence] in Urine by Test strip Negative [facility] Bilirubin.total [Mass/volume ] in Serum or PlasmaOrdered By: Teresa Lynch on 10-26-2024 Bilirubin [Mass/Vol] Bilirubin.total [Mass/volume] in Serum or Plasma 0.3-1.0 [facility] Blood estimated average gluc ose determination by estimation from glycated hemoglobinOrdered By: Teresa Lynch on 10-26-2024 Average glucose Estimated from glycated hemoglobin (Bld) [Mass/Vol] Glucose mean value [Mass/volume] in Blood Estimated from glycated hemoglobin [facility] Calcium [Mass/volume] in Ser um or PlasmaOrdered By: Teresa Lynch on 10-26-2024 Calcium [Mass/Vol] Calcium [Mass/volume ] in Serum or Plasma 8.6-10.3 [facility] Carbon dioxide, total [Moles /volume] in Serum or PlasmaOrdered By: Teresa Lynch on 10-26-2024 CO2 [Moles/Vol] Carbon dioxide, tota l [Moles/volume] in Serum or Plasma 21.0-31.0 [facility] Chloride [Moles/volume] in S ilia or PlasmaOrdered By: Teresa Lynch on 10-26-2024 Chloride [Moles/Vol] Chloride [Moles/vol ume] in Serum or Plasma 98-107 [facility] Cholesterol [Mass/volume] in Serum or PlasmaOrdered By: Teresa Lynch on 10-26-2024 Cholesterol [Mass/Vol] Cholesterol [Mass /volume] in Serum or Plasma Low 140-200 [facility] Comment on above: Chol less than 200 m g/dl low riskChol 201-239 mg/dl borderline riskChol 240 mg/dl and greater high risk Cholesterol in HDL [Mass/vol ume] in Serum or PlasmaOrdered By: Teresa Lynch on 10-26-2024 Cholesterol in HDL [Mass/Vol] Serum or plasma high density lipoprotein (HDL) cholesterol measurement Low 23-92 [facility] Comment on above: HDL CHOL ATP-III CLA SSIFICATION Cardiovascular RiskHDL > or equal to 60 mg/dL LOWHDL < 40 mg/dL HIGH Cholesterol in LDL Calc [Mas s/Vol]Ordered By: Teresa Lynch on 10-26-2024 Cholesterol in LDL [Mass/Vol] Cholesterol in LDL [Mass/volume] in Serum or Plasma by calculation 0 [facility] Comment on above: LDL ATP III CLASSIFI CATIONLDL less than 100 mg/dL OptimalLDL 100-129 mg/dL Near or above optimalLDL 130-159 mg/dL Borderline highLDL 160-189 mg/dL HighLDL greater than 189 mg/dL Very high Cholesterol in LDL [Mass/vol ume] in Serum or PlasmaOrdered By: Teresa Lynch on 10-26-2024 Cholesterol in LDL [Mass/Vol] Cholesterol in LDL [Mass/volume] in Serum or Plasma 0 [facility] Comment on above: LDL ATP III CLASSIFI CATIONLDL less than 100 mg/dL OptimalLDL 100-129 mg/dL Near or above optimalLDL 130-159 mg/dL Borderline highLDL 160-189 mg/dL HighLDL greater than 189 mg/dL Very high Cholesterol in VLDL Calc [Ma ss/Vol]Ordered By: Teresa Lynch on 10-26-2024 Cholesterol in VLDL [Mass/Vol] Cholesterol in VLDL [Mass/volume] in Serum or Plasma by calculation [facility] Comment on above: Test not performed Color Auto (U)Ordered By: Norris Fagan on 10-26-2024 Color (U) Color of Urine by Auto Yellow [facility] Pane guy 10-26-2024 Albumin [Mass/Vol] 4.3 g/dL Normal 3.5-5.7 [facility] Comment on above: Performed By: #### C MP, RENAL ####[facility] [id number] [place] [address] [facility] Albumin/Globulin [Mass ratio] 1.7 {ratio} Normal [facility] Comment on above: Performed By: #### C MP, RENAL ####[facility] [id number] [place] [address] [facility] ALP [Catalytic activity/Vol] 132 U/L High 34-104 [facility] Comment on above: Performed By: #### C MP, RENAL ####[address] [place] [address] [facility] ALT [Catalytic activity/Vol] 16 U/L Normal 7-52 [facility] Comment on above: Performed By: #### C MP, RENAL ####[address] [place] [address] [facility] Anion gap [Moles/Vol] 16.4 mmol/L High 6.0-15.0 Th e [facility] Comment on above: Performed By: #### C MP, RENAL ####[address] [address] [facility] AST [Catalytic activity/Vol] 13 U/L Normal 13-39 [facility] Comment on above: Performed By: #### C MP, RENAL ####[address] [address] [facility] Bilirubin [Mass/Vol] 0.4 mg/dL Normal 0.3-1.0 [facility] Comment on above: Performed By: #### C MP, RENAL ####[address] [address] [facility] Calcium [Mass/Vol] 9.4 mg/dL Normal 8.6-10.3 [facility] Comment on above: Performed By: #### C MP, RENAL ####[address] [address] [facility] Chloride [Moles/Vol] 98 mmol/L Normal 98-107 [facility] Comment on above: Performed By: #### C MP, RENAL ####[address] [address] [facility] CO2 [Moles/Vol] 27.2 mmol/L Normal 21.0-31.0 [facility] [facility] Comment on above: Performed By: #### C MP, RENAL ####[address] [address] [facility] Creatinine [Mass/Vol] 2.36 mg/dL High 0.70-1.30 [facility] Comment on above: Performed By: #### C MP, RENAL ####[place] [id number] [facility] Estimated GFR 30.940 mL/Min Normal The [facility] Comment on above: Performed By: #### C MP, RENAL ####[place] [id number] [facility] Globulin (S) [Mass/Vol] 2.6 g/dL Normal [facility] Comment on above: Performed By: #### C MP, RENAL ####[place] [id number] [facility] Glucose [Mass/Vol] 264 mg/dL High 70-100 The [facility] Comment on above: Result Comment: [facility] Glucose Reference Range is dependent on time and content of last meal. Glucose of more than 200 mg/dL in a nonstressed, ambulatory subject supports the diagnosis of Diabetes Mellitus. ADA recommended reference range Performed By: #### C MP, RENAL ####[address] Potassium [Moles/Vol] 4.6 mmol/L Normal 3.5-5.1 [facility] Comment on above: Performed By: #### C MP, RENAL ####[address] Protein [Mass/Vol] 6.9 g/dL Normal 6.4-8.9 [facility] Comment on above: Performed By: #### C MP, RENAL ####[address] Sodium [Moles/Vol] 137 mmol/L Normal 136-145 [facility] Comment on above: Performed By: #### C MP, RENAL ####[place] [id number] [facility] Urea nitrogen [Mass/Vol] 33 mg/dL High 7-25 [facility] Comment on above: Performed By: #### C MP, RENAL ####[place] [id number] [facility] Creatinine [Mass/volume] in Serum or PlasmaOrdered By: eTresa Lynch on 10-26-2024 Creatinine [Mass/Vol] Creatinine [Mass/v olume] in Serum or Plasma High 0.70-1.30 [facility] Creatinine [Mass/volume] in UrineOrdered By: Amina Fagan on 10-26-2024 Creatinine (U) [Mass/Vol] Creatinine [Mass/volume] in Urine [facility] Comment on above: No reference range e stablished Eosinophils Auto (Bld) [#/Vo l]Ordered By: Maurice Francis on 10-26-2024 Eosinophils (Bld) [#/Vol] Automated eosinophil count 0.0-0.45 [facility] Eosinophils/100 WBC Auto (Bl d)Ordered By: Maurice Francis on 10-26-2024 Eosinophils/100 WBC (Bld) Automated eosinophil % . [facility] Erythrocyte distribution wid th Auto (RBC) [Ratio]Ordered By: Maurice Francis on 10-26-2024 Erythrocyte distribution width (RBC) [Ratio] Erythrocyte distribution width [Ratio] by Automated count High 12.0-14.8 [facility] Erythrocyte morphology findi ng [Identifier] in BloodOrdered By: Maurice Francis on 10-26-2024 RBC morphology finding Nom (Bld) RBC morphology [facility] Ferritinon 10-26-2024 Ferritin [Mass/Vol] 8.3 ng/mL Low 23.9-336.2 [facility] Comment on above: Performed By: #### F ER, [id number], URIC, PTH, FE and TIBC ####[facility] [address] [place] [address] [facility] Ferritin [Mass/volume] in Se rum or PlasmaOrdered By: Amina Fagan on 10-26-2024 Ferritin [Mass/Vol] Ferritin [Mass/volum e] in Serum or Plasma Low 23.9-336.2 [facility] Folate [Mass/volume] in Seru m or PlasmaOrdered By: Amina Fagan on 10-26-2024 Folate [Mass/Vol] Folate [Mass/volume] in Serum or Plasma >5.9 [facility] Comment on above: Folate reference ran ge: >5.9 ng/mlThe WHO technical consultation on folate and vitamin [id number] has determined that folate concentrations lessthan 4 ng/ml are considered deficient. Globulin Calc (S) [Mass/Vol] Ordered By: Teresa Lynch on 10-26-2024 Globulin (S) [Mass/Vol] Serum globulin measurement by calculation (mass/volume) [facility] Glucose [Mass/volume] in Ser um or PlasmaOrdered By: Teresa Lynch on 10-26-2024 Glucose [Mass/Vol] Glucose [Mass/volume ] in Serum or Plasma High 70-100 [facility] Comment on above: ADA recommended refe rence [...] in Urine by Test strip High Normal [facility] Hematocrit Auto (Bld) [Volum e fraction]Ordered By: Maurice Francis on 10-26-2024 Hematocrit (Bld) [Volume fraction] Hematocrit [Volume Fraction] of Blood by Automated count 38.8-50.0 [facility] Hemoglobin A1c/Hemoglobin.to roberto carlos in BloodOrdered By: Teresa Lynch on 10-26-2024 HbA1c (Bld) [Mass fraction] Hemoglobin A1c percentage High 4.3-5.[address] [facility] Comment on above: Increased risk for d iabetes: 5.7 - 6.4diabetes: >6.4glycemic control for adults with diabetes: <7.0 Hemoglobin Test strip Ql (U) Ordered By: Amina Fagan on 10-26-2024 Hemoglobin Ql (U) Hemoglobin [Presence ] in Urine by Test strip Negative [facility] Hemoglobin [Mass/volume] in BloodOrdered By: Maurice Francis on 10-26-2024 Hemoglobin (Bld) [Mass/Vol] Hemoglobin [Mass/volume] in Blood 13.0-17.0 [facility] Iron [Mass/volume] in Serum or PlasmaOrdered By: Amina Fagan on 10-26-2024 Iron [Mass/Vol] Iron [Mass/volume] i n Serum or Plasma Low 50-212 [facility] Iron and TIBC Profileon 10-04 % Iron Saturation 6.9 % Low 20-50 The [facility] Comment on above: Performed By: #### F ER, [id number], URIC, PTH, FE and TIBC ####[place] [address] [place] [address] [facility] Iron [Mass/Vol] 31 ug/dL Low 50-212 [facility] Comment on above: Performed By: #### F ER, [id number], URIC, PTH, FE and TIBC ####[place] [address] [place] [address] [facility] Total Iron Binding Capacity 449 ug/dL Normal 255-450 [facility] Comment on above: Performed By: #### F ER, [id number], URIC, PTH, FE and TIBC ####[address] [address] [facility] Transferrin [Mass/Vol] 321 mg/dL Normal 203-362 Th [facility] Comment on above: Performed By: #### F ER, [id number], URIC, PTH, FE and TIBC ####[place] [address] [place] [address] [facility] Ketones Test strip Ql (U)Ord ered By: Amina Fagan on 10-26-2024 Ketones Ql (U) Ketones [Presence] i n Urine by Test strip Negative [facility] LDL Cholesterol Measuredon 0 10-26-2024 LDL Cholesterol Measured 36 mg/dL Normal 0-100 [facility] Comment on above: Result Comment: LDL ATP III CLASSIFICATION LDL less than 100 mg/dL Optimal LDL 100-129 mg/dL Near or above optimal LDL 130-159 mg/dL Borderline high LDL 160-189 mg/dL High LDL greater than 189 mg/dL Very high Performed By: #### L DLD, MG, URIC, TSH3, [id number], PSAS, LIPID ####[place] [address] [place] [address] [facility] Leukocyte esterase [Presence ] in Urine by Test stripOrdered By: Amina Fagan on 10-26-2024 Leukocyte esterase Test strip Ql (U) Leukocyte esterase [Presence] in Urine by Test strip Negative [facility] Leukocytes [#/volume] correc jorge for nucleated erythrocytes in Blood by Automated counOrdered By: Maurice Francis on 10-26-2024 WBC corrected for nucl RBC Auto (Bld) [#/Vol] Leukocytes [#/volume] corrected for nucleated erythrocytes in Blood by Automated coun 4.1-10.5 [facility] Lipid Panelon 10-26-2024 Cholesterol [Mass/Vol] 108 mg/dL Low 140-200 Th e [facility] Comment on above: Result Comment: Chol less than 200 mg/dl low risk Chol 201-239 mg/dl borderline risk Chol 240 mg/dl and greater high risk Performed By: #### L DLD, MG, URIC, TSH3, [id number], PSAS, LIPID ####[place] [address] Cholesterol in HDL [Mass/Vol] 21 mg/dL Low 23-92 [facility] Comment on above: Result Comment: HDL CHOL ATP-III CLASSIFICATION Cardiovascular Risk HDL > or equal to 60 mg/dL LOW HDL < 40 mg/dL HIGH Performed By: #### L DLD, MG, URIC, TSH3, [id number], PSAS, LIPID ####[place] [address] [place] [id number] [facility] Cholesterol.total/Chol esterol in HDL [Mass ratio] 5.1 {ratio} Normal <5.0 [facility] Comment on above: Performed By: #### L DLD, MG, URIC, TSH3, [id number], PSAS, LIPID ####[place] [address] [place] [id number] [facility] LDL Cholesterol,Calculated <10 Normal 0-100 [facility] Comment on above: Result Comment: LDL ATP III CLASSIFICATION LDL less than 100 mg/dL Optimal LDL 100-129 mg/dL Near or above optimal LDL 130-159 mg/dL Borderline high LDL 160-189 mg/dL High LDL greater than 189 mg/dL Very high Performed By: #### L DLD, MG, URIC, TSH3, [id number], PSAS, LIPID ####[facility] [address] Triglyceride w/Reflex 529 mg/dL High 0-149 [facility] Comment on above: Result [...] By: #### L DLD, MG, URIC, TSH3, [id number], PSAS, LIPID ####[place] [address] VLDL CHOLESTEROL Not performed Normal [facility] Comment on above: Performed By: #### L DLD, MG, URIC, TSH3, [id number], PSAS, LIPID ####[facility] Lymphocytes Auto (Bld) [#/Vo l]Ordered By: Maurice Reinar on 10-26-2024 Lymphocytes (Bld) [#/Vol] Lymphocytes [#/volume] in Blood by Automated count 1.00-4.8 [facility] Lymphocytes/100 WBC Auto (Bl d)Ordered By: Maurice Tito on 10-26-2024 Lymphocytes/100 WBC (Bld) Lymphocytes/100 leukocytes in Blood by Automated count . [facility] MCH Auto (RBC) [Entitic mass ]Ordered By: Maurice Reinar on 10-26-2024 MCH (RBC) [Entitic mass] MCH [Entitic mass] by Automated count Low 27.5-35.2 [facility] MCHC Auto (RBC) [Mass/Vol]Or dered By: Maurice Tito on 10-26-2024 MCHC (RBC) [Mass/Vol] MCHC [Mass/volume] by Automated count 32.5-35.6 [facility] MCV Auto (RBC) [Entitic vol] Ordered By: Maurice Swansondir on 10-26-2024 MCV (RBC) [Entitic vol] MCV [Entitic volume] by Automated count Low 83.5-101 [facility] Magnesiumon 10-26-2024 Magnesium [Mass/Vol] 1.8 mg/dL Low 1.9-2.7 [facility] Comment on above: Performed By: #### L DLD, MG, URIC, TSH3, [id number], PSAS, LIPID ####[facility] [place] [address] [facility] Magnesium [Mass/volume] in S ilia or PlasmaOrdered By: Teresa Lynch on 10-26-2024 Magnesium [Mass/Vol] Magnesium [Mass/vol ume] in Serum or Plasma Low 1.9-2.7 [facility] Microalbumin [Mass/volume] i n UrineOrdered By: Teresa Lynch on 10-26-2024 Albumin DL <= 20 mg/L (U) [Mass/Vol] Microalbumin [Mass/volume] in Urine 0.0-1.8 [facility] Microalbumin, Urine (Random) on 10-26-2024 Albumin DL <= 20 mg/L (U) [Mass/Vol] 0.9 mg/dL Normal 0.0-1.8 [facility] Comment on above: Result Comment: PERF ORMED BY:[address] [place], [place] [phone] MEDICAL DIRECTORBREANNE RUTHERFORD M.D. Performed By: #### U RMA ####[address] [address] [facility] Microcytes LM Ql (Bld)Ordere d By: Maurice Francis on 10-26-2024 Microcytes Ql (Bld) Microcytes [Presence ] in Blood by Light microscopy [facility] Monocytes Auto (Bld) [#/Vol] Ordered By: Maurice Tito on 10-26-2024 Monocytes (Bld) [#/Vol] Automated blood monocyte count 0.0-0.8 [facility] Monocytes/100 WBC Auto (Bld) Ordered By: Maurice Tito on 10-26-2024 Monocytes/100 WBC (Bld) Automated monocyte % . [facility] Neutrophils Auto (Bld) [#/Vo l]Ordered By: Maurice Francis on 10-26-2024 Neutrophils (Bld) [#/Vol] Neutrophils [#/volume] in Blood by Automated count 1.8-7.7 [facility] Neutrophils/100 WBC Auto (Bl d)Ordered By: Maurice Francis on 10-26-2024 Neutrophils/100 WBC (Bld) Automated neutrophil % . [facility] Nitrite Test strip Ql (U)Ord ered By: Amina Fagan on 10-26-2024 Nitrite Ql (U) Nitrite [Presence] i n Urine by Test strip Negative [facility] No Panel InformationOrdered By: Teresa Lynch on 10-26-2024 Estimated GFR (CKD-EPI) 30.940 mL/Min [facility] Creatinine Clearance (Chem N/A [facility] 30.940 mL/Min [facility] N/A [facility] Nucleated erythrocytes [Pres ence] in Blood by Automated countOrdered By: Maurice Francis on 10-26-2024 Nucleated RBC Auto Ql (Bld) Nucleated erythrocytes [Presence] in Blood by Automated count 0-0.5 [facility] PSA Screen (Yearly Only)on 0 10-26-2024 PSA Screen (Yearly Only) 1.160 ng/mL Normal 0.000-4.00 0 [facility] Comment on above: Result Comment: Josseline al tumor marker results determined by assays using different manufacturers or methods may not be comparable. [facility] first coat operator and method: [employer] DXI, CHEMILUMINESCENT IMMUNOASSAY.PERFORMED BY:[facility] [place], [place] [phone] MEDICAL DIRECTORBREANNE RUTHERFORD M.D. Performed By: #### L DLD, MG, URIC, TSH3, [id number], PSAS, LIPID ####[facility] [place] [address] [facility] Parathyrin.intact [Mass/volu me] in Serum or PlasmaOrdered By: Amina Fagan on 10-26-2024 Parathyrin.intact [Mass/Vol] Parathyrin.intact [Mass/volume] in Serum or Plasma [facility] Parathyroid Hormone Intacton 10-26-2024 Parathyroid Hormone Intact 87.9 pg/mL Normal 12-88 [facility] Comment on above: Result Comment: PERF ORMED BY:[facility] [place], [place] [phone] MEDICAL DIRECTORBREANNE RUTHERFORD M.D. Performed By: #### F ER, [id number], URIC, PTH, FE and TIBC ####[facility] [place] [address] [address] [facility] Phosphate [Mass/volume] in S ilia or PlasmaOrdered By: Teresa Lynch on 10-26-2024 Phosphate [Mass/Vol] Phosphate [Mass/vol ume] in Serum or Plasma 2.5-4.5 [facility] Platelet adequacy [Presence] in Blood by Light microscopyOrdered By: Maurice Francis on 10-26-2024 Platelets LM Ql (Bld) Platelet adequacy [Presence] in Blood by Light microscopy Normal [facility] Platelet mean volume Auto (B ld) [Entitic vol]Ordered By: Maurice Francis on 10-26-2024 Platelet mean volume (Bld) [Entitic vol] Platelet mean volume [Entitic volume] in Blood by Automated count 6.6-10.1 [facility] Platelet morphology finding [Identifier] in BloodOrdered By: Maurice Francis on 10-26-2024 Platelet morphology finding Nom (Bld) Platelet morphology finding [Identifier] in Blood [facility] Platelets Auto (Bld) [#/Vol] Ordered By: Maurice Francis on 10-26-2024 Platelets (Bld) [#/Vol] Platelets [#/volume] in Blood by Automated count 150-450 [facility] Platelets Large [Presence] i n Blood by Light microscopyOrdered By: Maurice Francis on 10-26-2024 Platelets Large LM Ql (Bld) Platelets Large [Presence] in Blood by Light microscopy [facility] Polychromasia [Presence] in Blood by Light microscopyOrdered By: Maurice Francis on 10-26-2024 Polychromasia LM Ql (Bld) Polychromasia [Presence] in Blood by Light microscopy [facility] Potassium [Moles/volume] in Serum or PlasmaOrdered By: Teresa Lynch on 10-26-2024 Potassium [Moles/Vol] Potassium [Moles/v olume] in Serum or Plasma 3.5-5.1 [facility] Prostate specific Ag [Mass/v olume] in Serum or PlasmaOrdered By: Teresa Lynch on 10-26-2024 Prostate specific Ag [Mass/Vol] Prostate specific Ag [Mass/volume] in Serum or Plasma 0.000-4.00 0 [facility] Comment on above: Serial tumor marker results determined by assays using different manufacturers or methods may not be comparable.[facility] first coat operator and method:Xikota DevicesEL DXI, CHEMILUMINESCENT IMMUNOASSAY. Protein Creat Ratio Ur Rando mon 10-26-2024 Creatinine, Urine (Random) 62.00 mg/dL Normal [facility] Comment on above: Result Comment: No r eference range established Performed By: #### P JS UA ####[place] [id number] [facility] Protein (U) [Mass/Vol] 12 mg/dL High 0-9 Th e [facility] Comment on above: Performed By: #### P JS, UA ####[address] [address] [facility] Urine Protein/Creatinine Ratio 194 mg/g{Cre} Normal 0-200 [facility] Comment on above: Result Comment: PERF ORMED BY:[address] [place], [place] [phone] MEDICAL MARY RUTHERFORD M.D. Performed By: #### P JS, UA ####[address] [address] [facility] Protein Test strip (U) [Mass /Vol]Ordered By: Amina Fagan on 10-26-2024 Protein (U) [Mass/Vol] Protein [Mass/vol ume] in Urine by Test strip Negative [facility] Protein [Mass/volume] in Ser um or PlasmaOrdered By: Teresa Lynch on 10-26-2024 Protein [Mass/Vol] Protein [Mass/volume ] in Serum or Plasma 6.4-8.9 [facility] Protein [Mass/volume] in Uri neOrdered By: Amina Fagan on 10-26-2024 Protein (U) [Mass/Vol] Protein [Mass/vol ume] in Urine High 0-9 [facility] RBC Auto (Bld) [#/Vol]Ordere d By: Maurice Francis on 10-26-2024 RBC (Bld) [#/Vol] Erythrocytes [#/volu me] in Blood by Automated count 3.90-5.60 [facility] Renal Function Panelon 10-26 Phosphate [Mass/Vol] 3.9 mg/dL Normal 2.5-4.5 [facility] Comment on above: Result Comment: PERF ORMED BY:[address] [place], [place] [phone] MEDICAL DIRECTORBREANNE RUTHERFORD M.D. Performed By: #### C MP, RENAL ####[address] Scan and CBCon 10-26-2024 Anisocytosis Ql (Bld) Marked Normal [facility] Comment on above: Performed By: #### S CAN CBC ####[address] Basophils (Bld) [#/Vol] 0.1 10*3/uL Normal 0.0-0.2 [facility] Comment on above: Performed By: #### S CAN CBC ####[address] Basophils/100 WBC (Bld) 1.1 % Normal . [facility] Comment on above: Performed By: #### S CAN CBC ####[address] Eosinophils (Bld) [#/Vol] 0.3 10*3/uL Normal 0.0-0.45 [facility] Comment on above: Performed By: #### S CAN CBC ####[address] Eosinophils/100 WBC (Bld) 3.5 % Normal . [facility] Comment on above: Performed By: #### S CAN CBC ####[address] Erythrocyte distribution width (RBC) [Ratio] 21.5 % High 12.0-14.8 [facility] Comment on above: Performed By: #### S CAN CBC ####[address] Hematocrit (Bld) [Volume fraction] 42.7 % Normal 38.8-50.0 [facility] Comment on above: Performed By: #### S CAN CBC ####[address] Hemoglobin (Bld) [Mass/Vol] 14.3 g/dL Normal 13.0-17.0 [facility] Comment on above: Performed By: #### S CAN CBC ####[address] Large Platelets Slight Normal [facility] Comment on above: Result Comment: PERF ORMED BY:[address] [place], [place] [phone] MEDICAL DIRECTORBREANNE RUTHERFORD M.D. Performed By: #### S CAN CBC ####[address] Lymphocytes (Bld) [#/Vol] 1.6 10*3/uL Normal 1.00-4.8 [facility] Comment on above: Performed By: #### S CAN CBC ####[address] Lymphocytes/100 WBC (Bld) 17.7 % Normal . [facility] Comment on above: Performed By: #### S CAN CBC ####[address] MCH (RBC) [Entitic mass] 25.9 pg Low 27.5-35.2 [facility] Comment on above: Performed By: #### S CAN CBC ####[address] MCV (RBC) [Entitic vol] 77.1 fL Low 83.5-101 [facility] Comment on above: Performed By: #### S CAN CBC ####[address] Mean Corpuscular HGB Conc 33.6 g/dL Normal 32.5-35.6 [facility] Comment on above: Performed By: #### S CAN CBC ####[address] Microcytosis Slight Normal [facility] Comment on above: Performed By: #### S CAN CBC ####[address] Monocytes (Bld) [#/Vol] 0.8 10*3/uL Normal 0.0-0.8 [facility] Comment on above: Performed By: #### S CAN CBC ####[address] Monocytes/100 WBC (Bld) 9.2 % Normal . [facility] Comment on above: Performed By: #### S CAN CBC ####[address] Neutrophils (Bld) [#/Vol] 6.0 10*3/uL Normal 1.8-7.7 [facility] Comment on above: Performed By: #### S CAN CBC ####[address] Neutrophils/100 WBC (Bld) 68.5 % Normal . [facility] Comment on above: Performed By: #### S CAN CBC ####[address] NRBC% 0.1 /100{WBC} Normal 0-0.[address] [facility] Comment on above: Performed By: #### S CAN CBC ####[address] Platelet Estimate Normal Normal Normal [facility] Comment on above: Performed By: #### S CAN CBC ####[place] [address] [place] [address] [facility] Platelet mean volume (Bld) [Entitic vol] 9.5 fL Normal 6.6-10.1 The [facility] Comment on above: Performed By: #### S CAN CBC ####[place] [address] [place] [address] [facility] Platelets (Bld) [#/Vol] 167 10*3/uL Normal 150-450 [facility] Comment on above: Performed By: #### S CAN CBC ####[place] [address] [place] [address] [facility] Polychromasia Slight Normal The [facility] Comment on above: Performed By: #### S CAN CBC ####[place] [address] [place] [address] [facility] RBC (Bld) [#/Vol] 5.54 10*6/uL Normal 3.90-5.60 The [facility] Comment on above: Performed By: #### S CAN CBC ####[place] [address] [place] [address] [facility] WBC (Bld) [#/Vol] 8.8 10*3/uL Normal 4.1-10.5 The [facility] Comment on above: Performed By: #### S CAN CBC ####[place] [address] [place] [address] [facility] Serum or plasma albumin/glob ulin mass ratioOrdered By: Teresa Lynch on 10-26-2024 Albumin/Globulin [Mass ratio] Serum or plasma albumin/globulin mass ratio [facility] Serum or plasma anion gap de terminationOrdered By: Teresa Lynch on 10-26-2024 Anion gap [Moles/Vol] Serum or plasma an ion gap determination High 6.0-15.0 [facility] Serum or plasma iron binding capacity measurement (mass/volume)Ordered By: Amina Fagan on 10-26-2024 Iron binding capacity [Mass/Vol] Iron binding capacity [Mass/volume] in Serum or Plasma 255-450 [facility] Serum or plasma iron saturat ion measurement (mass fraction)Ordered By: Amina Fagan on 10-26-2024 Iron saturation [Mass fraction] Iron saturation [Mass Fraction] in Serum or Plasma Low 20-50 [facility] Serum or plasma total choles terol/high density lipoprotein (HDL) cholesterol mass ratOrdered By: Teresa Lynch on 10-26-2024 Cholesterol.total/Chol esterol in HDL [Mass ratio] Serum or plasma total cholesterol/high density lipoprotein (HDL) cholesterol mass rat <5.0 [facility] Sodium [Moles/volume] in Ser um or PlasmaOrdered By: Teresa Lynch on 10-26-2024 Sodium [Moles/Vol] Sodium [Moles/volume ] in Serum or Plasma 136-145 [facility] Specific gravity Test strip (U) [Rel density]Ordered By: Amina Fagan on 10-26-2024 Specific gravity (U) [Rel density] Specific gravity of Urine by Test strip 1.001-1.03 0 [facility] Thyroid Stimulating Hormoneo n 10-26-2024 TSH Qn 3.68 m[IU]/L Normal 0.45-5.33 [facility] Comment on above: Performed By: #### L DLD, MG, URIC, TSH3, [id number], PSAS, LIPID ####[facility] [id number] [facility] Thyrotropin [Units/volume] i n Serum or PlasmaOrdered By: Teresa Lynch on 10-26-2024 TSH Qn Thyrotropin [Units/volume] in Serum or Plasma 0.45-5.33 [facility] Transferrin [Mass/volume] in Serum or PlasmaOrdered By: Amina Fagan on 10-26-2024 Transferrin [Mass/Vol] Transferrin [Mass /volume] in Serum or Plasma 203-362 [facility] Triglyceride [Mass/volume] i n Serum or PlasmaOrdered By: Teresa Lynch on 10-26-2024 Triglyceride [Mass/Vol] Triglyceride [Mass/volume] in Serum or Plasma High 0-149 [facility] Comment on above: If the triglyceride result [...] [Mass/volume] in Serum or Plasma High 4.4-7.6 [facility] Urea nitrogen [Mass/volume] in Serum or PlasmaOrdered By: Teresa Lynch on 10-26-2024 Urea nitrogen [Mass/Vol] Urea nitrogen [Mass/volume] in Serum or Plasma High 7-25 [facility] Uric Acidon 10-26-2024 Urate [Mass/Vol] 10.5 mg/dL High 4.4-7.6 The [facility] Comment on above: Performed By: #### F ER, [id number], URIC, PTH, FE and TIBC ####[address] Urate [Mass/Vol] 10.5 mg/dL High 4.4-7.6 [facility] Comment on above: Performed By: #### L DLD, MG, URIC, TSH3, [id number], PSAS, LIPID ####[place] [id number] [facility] Urinalysison 10-26-2024 Appearance (U) Clear Normal Clear [facility] Comment on above: Order Comment: Name Collection Type:: Clean-Voided Midstream Performed By: #### P ROCRERAT, UA ####[place] [id number] [facility] Bilirubin,Urine Negative Normal Negative [facility] Comment on above: Order Comment: Name Collection Type:: Clean-Voided Midstream Performed By: #### P ROCRERAT, UA ####[place] [id number] [facility] Color (U) Light-Yellow Normal Yellow [facility] Comment on above: Order Comment: Name Collection Type:: Clean-Voided Midstream Performed By: #### P ROCRERAT, UA ####[address] [address] [facility] Glucose Ql (U) >= High Normal [facility] Comment on above: Order Comment: Name Collection Type:: Clean-Voided Midstream Performed By: #### P ROCRERAT, UA ####[address] [address] [facility] Ketones Ql (U) Negative Normal Negative [facility] Comment on above: Order Comment: Name Collection Type:: Clean-Voided Midstream Performed By: #### P ROCRERAT, UA ####[address] [address] [facility] Leukocyte esterase Test strip Ql (U) Negative Normal Negative The [facility] Comment on above: Order Comment: Name Collection Type:: Clean-Voided Midstream Performed By: #### P ROCRERAT, UA ####[address] [address] [facility] Nitrite,Urine Negative Normal Negative The [facility] Comment on above: Order Comment: Name Collection Type:: Clean-Voided Midstream Performed By: #### P ROCRERAT, UA ####[address] [address] [facility] Occult Blood,Urine Negative Normal Negative The [facility] Comment on above: Order Comment: Name Collection Type:: Clean-Voided Midstream Result Comment: PERF ORMED BY:[address] [place], [place] [phone] MEDICAL MARY RUTHERFORD M.D. Performed By: #### P ROCRERAT, UA ####[address] [address] [facility] pH (U) 5.5 [pH] Normal 5.0-9.0 [facility] Comment on above: Order Comment: Name Collection Type:: Clean-Voided Midstream Performed By: #### P ROCRERAT, UA ####[place] [id number] [facility] Protein,Urine Negative Normal Negative The [facility] Comment on above: Order Comment: Name Collection Type:: Clean-Voided Midstream Performed By: #### P ROCRERAT, UA ####[place] [address] [place] [address] [facility] Specificy [place],Urine 1.020 Normal 1.001-1.03 0 [facility] Comment on above: Order Comment: Name Collection Type:: Clean-Voided Midstream Performed By: #### P ROCRERAT, UA ####[place] [address] [place] [address] [facility] Urobilinogen,Urine Normal Normal Normal [facility] Comment on above: Order Comment: Name Collection Type:: Clean-Voided Midstream Performed By: #### P ROCRERAT, UA ####[address] [address] [facility] Urine protein/creatinine rat ioOrdered By: Amina Fagan on 10-26-2024 Protein/Creatinine (U) [Ratio] Urine protein/creatinine ratio 0-200 [facility] Urobilinogen Test strip (U) [Mass/Vol]Ordered By: Amina Fagan on 10-26-2024 Urobilinogen (U) [Mass/Vol] Urobilinogen [Mass/volume] in Urine by Test strip Normal [facility] Vit. B12/Folate Profileon Cobalamin (Vitamin B12) [Mass/Vol] 195 pg/mL Normal 180-914 [facility] Comment on above: Performed By: #### F ER, [id number], URIC, PTH, FE and TIBC ####[place] [address] [place] [address] [facility] Folate 10.1 ng/mL Normal >5.9 [facility] Comment on above: Result Comment: Aure te reference range: >5.9 ng/ml The WHO technical consultation on folate and vitamin b12 deficiencies has determined that folate concentrations less than 4 ng/ml are considered deficient.PERFORMED BY:[address] [place], [place] [phone] MEDICAL DIRECTORBREANNE RUTHERFORD M.D. Performed By: #### F ER, [id number], URIC, PTH, FE and TIBC ####[address] [address] [facility] Vitamin B12 ser/plasOrdered By: Amina Fagan on 10-26-2024 Cobalamin (Vitamin B12) [Mass/Vol] Vitamin B12 ser/plas 180-914 [facility] Vitamin D 25 Hydroxy Totalon 10-26-2024 Vitamin D 25 Hydroxy Total 17.0 ng/mL Low 30-100 [facility] Comment on above: Result Comment: SUBHA MIN D STATUS 25(OH)VITAMIN D RANGE (ng/mL) Deficient <20 Insufficient 20 to <30 Sufficient 30 to 100 Reference: Ibrahima Reyes, Kasey LONG, et al. Evaluation,treatment, and prevention of vitamin D deficiency; an Endocrine Society clinical practice guideline. JCEM. 2010; 96(7):191-.PERFORMED BY:[address] [place], [place] [phone] MEDICAL DIRECTORBREANNE RUTHERFORD M.D. Performed By: #### L DLD, MG, URIC, TSH3, [id number], PSAS, LIPID ####[address] [place] [address] [facility] Vitamin D+Metabolites [Mass/ volume] in Serum or PlasmaOrdered By: Teresa Lynch on 10-26-2024 Vitamin D+Metabolites [Mass/Vol] Vitamin D+Metabolites [Mass/volume] in Serum or Plasma Low 30-100 [facility] Comment on above: VITAMIN D STATUS 25( [...] ] in Blood by Automated count 4.1-10.5 [facility] pH Test strip (U)Ordered By: Amina Fgaan on 10-26-2024 pH (U) pH of Urine by Test strip 5.0-9.0 [facility] Anisocytosis LM Ql (Bld)Orde red By: Abdullahi Canchola on 10-11-2024 Anisocytosis Ql (Bld) Anisocytosis [Pres ence] in Blood by Light microscopy [facility] Basic Metabolic Panelon Anion gap [Moles/Vol] 15.7 mmol/L High 6.0-15.0 Th e [facility] Comment on above: Performed By: #### B MP, CK, HS TROP, FE and TIBC, LILA, MG, SCAN CBC ####[address] Calcium [Mass/Vol] 8.9 mg/dL Normal 8.6-10.3 [facility] Comment on above: Performed By: #### B MP, CK, HS TROP, FE and TIBC, LILA, MG, SCAN CBC ####[address] Chloride [Moles/Vol] 99 mmol/L Normal 98-107 [facility] Comment on above: Performed By: #### B MP, CK, HS TROP, FE and TIBC, LILA, MG, SCAN CBC ####[address] CO2 [Moles/Vol] 25.5 mmol/L Normal 21.0-31.0 The [facility] Comment on above: Performed By: #### B MP, CK, HS TROP, FE and TIBC, LILA, MG, SCAN CBC ####[address] Creatinine [Mass/Vol] 2.43 mg/dL High 0.70-1.30 [facility] Comment on above: Performed By: #### B MP, CK, HS TROP, FE and TIBC, LILA, MG, SCAN CBC ####[place] [id number] Creatinine Clr Calc Pharmacy 35.93 Normal [facility] Comment on above: Performed By: #### B MP, CK, HS TROP, FE and TIBC, LILA, MG, SCAN CBC ####[place] [address] Estimated GFR 29.874 mL/Min Normal The [facility] Comment on above: Performed By: #### B MP, CK, HS TROP, FE and TIBC, LILA, MG, SCAN CBC ####[place] [id number] Glucose [Mass/Vol] 221 mg/dL High 70-100 [facility] Comment on above: Result Comment: [place] Glucose Reference Range is dependent on time and content of last meal. Glucose of more than 200 mg/dL in a nonstressed, ambulatory subject supports the diagnosis of Diabetes Mellitus. ADA recommended reference range Performed By: #### B MP, CK, HS TROP, FE and TIBC, LILA, MG, SCAN CBC ####[address] Potassium [Moles/Vol] 4.2 mmol/L Normal 3.5-5.1 [facility] Comment on above: Performed By: #### B MP, CK, HS TROP, FE and TIBC, LILA, MG, SCAN CBC ####[address] Sodium [Moles/Vol] 136 mmol/L Normal 136-145 [facility] Comment on above: Performed By: #### B MP, CK, HS TROP, FE and TIBC, LILA, MG, SCAN CBC ####[address] Urea nitrogen [Mass/Vol] 39 mg/dL High 7-25 [facility] Comment on above: Performed By: #### B MP, CK, HS TROP, FE and TIBC, LILA, MG, SCAN CBC ####[address] Basophils Auto (Bld) [#/Vol] Ordered By: Abdullahi Canchola on 10-11-2024 Basophils (Bld) [#/Vol] Automated basophil count 0.0-0.2 [facility] Basophils/100 WBC Auto (Bld) Ordered By: Abdullahi Canchola on 10-11-2024 Basophils/100 WBC (Bld) Automated basophil % . [facility] Calcium [Mass/volume] in Ser um or PlasmaOrdered By: Abdullahi Canchola on 10-11-2024 Calcium [Mass/Vol] Calcium [Mass/volume ] in Serum or Plasma 8.6-10.3 [facility] Carbon dioxide, total [Moles /volume] in Serum or PlasmaOrdered By: Abdullahi Canchola on 10-11-2024 CO2 [Moles/Vol] Carbon dioxide, tota l [Moles/volume] in Serum or Plasma 21.0-31.0 [facility] Chloride [Moles/volume] in S ilia or PlasmaOrdered By: Abdullahi Canchola on 10-11-2024 Chloride [Moles/Vol] Chloride [Moles/vol ume] in Serum or Plasma 98-107 [facility] Creatine Kinaseon 10-11-2024 CK [Catalytic activity/Vol] 91 U/L Normal 30-223 [facility] Comment on above: Performed By: #### B MP, CK, HS TROP, FE and TIBC, LILA, MG, SCAN CBC ####[facility] [id number] [place] [address] [facility] Creatine kinase [Enzymatic a ctivity/volume] in Serum or PlasmaOrdered By: Abdullahi Canchola on 10-11-2024 CK [Catalytic activity/Vol] Creatine kinase [Enzymatic activity/volume] in Serum or Plasma 30-223 [facility] Creatinine [Mass/volume] in Serum or PlasmaOrdered By: Abdullahi Canchola on 10-11-2024 Creatinine [Mass/Vol] Creatinine [Mass/v olume] in Serum or Plasma High 0.70-1.30 [facility] ECH echo transthoracicon ECH echo transthoracic Normal Th e [facility] Eosinophils Auto (Bld) [#/Vo l]Ordered By: Abdullahi Canchola on 10-11-2024 Eosinophils (Bld) [#/Vol] Automated eosinophil count 0.0-0.45 [facility] Eosinophils/100 WBC Auto (Bl d)Ordered By: Abdullahi Canchola on 10-11-2024 Eosinophils/100 WBC (Bld) Automated eosinophil % . [facility] Erythrocyte distribution wid th Auto (RBC) [Ratio]Ordered By: Abdullahi Canchola on 10-11-2024 Erythrocyte distribution width (RBC) [Ratio] Erythrocyte distribution width [Ratio] by Automated count High 12.0-14.8 [facility] Erythrocyte morphology findi ng [Identifier] in BloodOrdered By: Abdullahi Canchola on 10-11-2024 RBC morphology finding Nom (Bld) RBC morphology [facility] Ferritinon 10-11-2024 Ferritin [Mass/Vol] 8.2 ng/mL Low 23.9-336.2 [facility] Comment on above: Result Comment: PERF ORMED BY:[address] [place], [place] [phone] MEDICAL DIRECTORMIKE CABAN M.D. Performed By: #### B MP, CK, HS TROP, FE and TIBC, LILA, MG, SCAN CBC ####[address] [address] [facility] Ferritin [Mass/volume] in Se rum or PlasmaOrdered By: Abdullahi Canchola on 10-11-2024 Ferritin [Mass/Vol] Ferritin [Mass/volum e] in Serum or Plasma Low 23.9-336.2 [facility] Glucose Glucometer (BldC) [M ass/Vol]Ordered By: Abdullahi Canchola on 10-11-2024 Glucose [Mass/Vol] Capillary blood gluc ose measurement by glucometer (mass/volume) [facility] Comment on above: Random Glucose Refer ence Range is dependent on time and content of last meal. Glucose of more than 200 mg/dL in a nonstressed, ambulatory subject supports the diagnosis of Diabetes Mellitus. Glucose Poct Glucometerson 0 10-11-2024 Commemt1 Glu2: Cleaned Meter Normal [facility] Comment on above: Result Comment: PERF ORMED BY:[place] [place], [place] [phone] MEDICAL DIRECTORMIKE CABAN M.D. Performed By: #### G LULS ####Point of Care testing, Glucose [Mass/Vol] 194 mg/dL Normal [facility] Comment on above: Result Comment: [place] om Glucose Reference Range is dependent on time and content of last meal. Glucose of more than 200 mg/dL in a nonstressed, ambulatory subject supports the diagnosis of Diabetes Mellitus. Performed By: #### G LULS ####Point of Care testing, Commemt1 Glu2: Cleaned Meter Normal [facility] Comment on above: Result Comment: PERF ORMED BY:[address] [place], [place] [phone] MEDICAL DIRECTORMIKE CABAN M.D. Performed By: #### G LULS ####Point of Care testing, Glucose [Mass/Vol] 229 mg/dL Normal [facility] Comment on above: Result Comment: [place] om Glucose Reference Range is dependent on time and content of last meal. Glucose of more than 200 mg/dL in a nonstressed, ambulatory subject supports the diagnosis of Diabetes Mellitus. Performed By: #### G LULS ####Point of Care testing, Glucose [Mass/volume] in Ser um or PlasmaOrdered By: Abdullahi Canchola on 10-11-2024 Glucose [Mass/Vol] Glucose [Mass/volume ] in Serum or Plasma High 70-100 [facility] Comment on above: ADA recommended refe rence rangeRandom Glucose Reference Range is dependent on time and content of last meal. Glucose of more than 200 mg/dL in a nonstressed, ambulatory subject supports the diagnosis of Diabetes Mellitus. Hematocrit Auto (Bld) [Volum e fraction]Ordered By: Abdullahi Canchola on 10-11-2024 Hematocrit (Bld) [Volume fraction] Hematocrit [Volume Fraction] of Blood by Automated count 38.8-50.0 [facility] Hemoglobin [Mass/volume] in BloodOrdered By: Abdullahi Canchola on 10-11-2024 Hemoglobin (Bld) [Mass/Vol] Hemoglobin [Mass/volume] in Blood 13.0-17.0 [facility] Iron [Mass/volume] in Serum or PlasmaOrdered By: Abdullahi Canchola on 10-11-2024 Iron [Mass/Vol] Iron [Mass/volume] i n Serum or Plasma Low 50-212 [facility] Iron and TIBC Profileon 05- % Iron Saturation 9.1 % Low 20-50 [facility] Comment on above: Performed By: #### B MP, CK, HS TROP, FE and TIBC, LILA, MG, SCAN CBC ####[place] [id number] Iron [Mass/Vol] 37 ug/dL Low 50-212 [facility] Comment on above: Performed By: #### B MP, CK, HS TROP, FE and TIBC, LILA, MG, SCAN CBC ####[place] [address] Total Iron Binding Capacity 407 ug/dL Normal 255-450 [facility] Comment on above: Performed By: #### B MP, CK, HS TROP, FE and TIBC, LILA, MG, SCAN CBC ####[place] [id number] Transferrin [Mass/Vol] 291 mg/dL Normal 203-362 [facility] Comment on above: Performed By: #### B MP, CK, HS TROP, FE and TIBC, LILA, MG, SCAN CBC ####[address] Leukocytes [#/volume] correc jorge for nucleated erythrocytes in Blood by Automated counOrdered By: Abdullahi Canchola on 10-11-2024 WBC corrected for nucl RBC Auto (Bld) [#/Vol] Leukocytes [#/volume] corrected for nucleated erythrocytes in Blood by Automated coun 4.1-10.5 [facility] Lymphocytes Auto (Bld) [#/Vo l]Ordered By: Abdullahi Canchola on 10-11-2024 Lymphocytes (Bld) [#/Vol] Lymphocytes [#/volume] in Blood by Automated count 1.00-4.8 [facility] Lymphocytes/100 WBC Auto (Bl d)Ordered By: Abdullahi Canchola on 10-11-2024 Lymphocytes/100 WBC (Bld) Lymphocytes/100 leukocytes in Blood by Automated count . [facility] MCH Auto (RBC) [Entitic mass ]Ordered By: Abdullahi Canchola on 10-11-2024 MCH (RBC) [Entitic mass] MCH [Entitic mass] by Automated count Low 27.5-35.2 [facility] MCHC Auto (RBC) [Mass/Vol]Or dered By: Abdullahi Canchola on 10-11-2024 MCHC (RBC) [Mass/Vol] MCHC [Mass/volume] by Automated count 32.5-35.6 [facility] MCV Auto (RBC) [Entitic vol] Ordered By: Abdullahi Canchola on 10-11-2024 MCV (RBC) [Entitic vol] MCV [Entitic volume] by Automated count Low 83.5-101 [facility] Magnesiumon 10-11-2024 Magnesium [Mass/Vol] 1.8 mg/dL Low 1.9-2.7 [facility] Comment on above: Performed By: #### B MP, CK, HS TROP, FE and TIBC, LILA, MG, SCAN CBC ####[facility] [id number] Magnesium [Mass/volume] in S ilia or PlasmaOrdered By: Abdullahi Canchola on 10-11-2024 Magnesium [Mass/Vol] Magnesium [Mass/vol ume] in Serum or Plasma Low 1.9-2.7 [facility] Microcytes LM Ql (Bld)Ordere d By: Abdullahi Canchola on 10-11-2024 Microcytes Ql (Bld) Microcytes [Presence ] in Blood by Light microscopy [facility] Monocytes Auto (Bld) [#/Vol] Ordered By: Abdullahi Canchola on 10-11-2024 Monocytes (Bld) [#/Vol] Automated blood monocyte count High 0.0-0.8 [facility] Monocytes/100 WBC Auto (Bld) Ordered By: Abdullahi Canchola on 10-11-2024 Monocytes/100 WBC (Bld) Automated monocyte % . [facility] Neutrophils Auto (Bld) [#/Vo l]Ordered By: Abdullahi Canchola on 10-11-2024 Neutrophils (Bld) [#/Vol] Neutrophils [#/volume] in Blood by Automated count 1.8-7.7 [facility] Neutrophils/100 WBC Auto (Bl d)Ordered By: Abdullahi Canchola on 10-11-2024 Neutrophils/100 WBC (Bld) Automated neutrophil % . [facility] No Panel InformationOrdered By: Abdullahi Canchola on 10-11-2024 Bedside Glucose Comment Glu2: cleaned meter [facility] Glu2: cleaned meter [facility] Estimated GFR (CKD-EPI) 29.874 mL/Min [facility]acy Creatinine Clearance (Chem 35.93 [facility] 29.874 mL/Min [facility] 35.93 [facility] Nucleated erythrocytes [Pres ence] in Blood by Automated countOrdered By: Abdullahi Canchola on 10-11-2024 Nucleated RBC Auto Ql (Bld) Nucleated erythrocytes [Presence] in Blood by Automated count 0-0.5 [facility] Ovalocytes [Presence] in Blo od by Light microscopyOrdered By: Abdullahi Canchola on 10-11-2024 Ovalocytes LM Ql (Bld) Ovalocyte detection [facility] Platelet adequacy [Presence] in Blood by Light microscopyOrdered By: Abdullahi Canchola on 10-11-2024 Platelets LM Ql (Bld) Platelet adequacy [Presence] in Blood by Light microscopy Normal [facility] Platelet mean volume Auto (B ld) [Entitic vol]Ordered By: Abdullahi Canchola on 10-11-2024 Platelet mean volume (Bld) [Entitic vol] Platelet mean volume [Entitic volume] in Blood by Automated count 6.6-10.1 [facility] Platelet morphology finding [Identifier] in BloodOrdered By: Abdullahi Canchola on 10-11-2024 Platelet morphology finding Nom (Bld) Platelet morphology finding [Identifier] in Blood [facility] Platelets Auto (Bld) [#/Vol] Ordered By: Abdullahi Canchola on 10-11-2024 Platelets (Bld) [#/Vol] Platelets [#/volume] in Blood by Automated count 150-450 [facility] Platelets Large [Presence] i n Blood by Light microscopyOrdered By: Abdullahi Canchola on 10-11-2024 Platelets Large LM Ql (Bld) Platelets Large [Presence] in Blood by Light microscopy [facility] Poikilocytosis [Presence] in Blood by Light microscopyOrdered By: Abdullahi Canchola on 10-11-2024 Poikilocytosis LM Ql (Bld) Poikilocytosis [Presence] in Blood by Light microscopy [facility] Polychromasia [Presence] in Blood by Light microscopyOrdered By: Abdullahi Canchola on 10-11-2024 Polychromasia LM Ql (Bld) Polychromasia [Presence] in Blood by Light microscopy [facility] Potassium [Moles/volume] in Serum or PlasmaOrdered By: Abdullahi Canchola on 10-11-2024 Potassium [Moles/Vol] Potassium [Moles/v olume] in Serum or Plasma 3.5-5.1 [facility] RBC Auto (Bld) [#/Vol]Ordere d By: Abdullahi Canchola on 10-11-2024 RBC (Bld) [#/Vol] Erythrocytes [#/volu me] in Blood by Automated count 3.90-5.60 [facility] Scan and CBCon 10-11-2024 Anisocytosis Ql (Bld) Marked Normal [facility] Comment on above: Performed By: #### B MP, CK, HS TROP, FE and TIBC, LILA, MG, SCAN CBC ####[address] Basophils (Bld) [#/Vol] 0.1 10*3/uL Normal 0.0-0.2 [facility] Comment on above: Performed By: #### B MP, CK, HS TROP, FE and TIBC, LILA, MG, SCAN CBC ####[address] Basophils/100 WBC (Bld) 1.3 % Normal . [facility] Comment on above: Performed By: #### B MP, CK, HS TROP, FE and TIBC, LILA, MG, SCAN CBC ####[address] Eosinophils (Bld) [#/Vol] 0.3 10*3/uL Normal 0.0-0.45 [facility] Comment on above: Performed By: #### B MP, CK, HS TROP, FE and TIBC, LILA, MG, SCAN CBC ####[address] Eosinophils/100 WBC (Bld) 4.0 % Normal . [facility] Comment on above: Performed By: #### B MP, CK, HS TROP, FE and TIBC, LILA, MG, SCAN CBC ####[address] Erythrocyte distribution width (RBC) [Ratio] 23.3 % High 12.0-14.8 [facility] Comment on above: Performed By: #### B MP, CK, HS TROP, FE and TIBC, LILA, MG, SCAN CBC ####[address] Hematocrit (Bld) [Volume fraction] 38.9 % Normal 38.8-50.0 [facility] [facility] Comment on above: Performed By: #### B MP, CK, HS TROP, FE and TIBC, LILA, MG, SCAN CBC ####[address] Hemoglobin (Bld) [Mass/Vol] 13.1 g/dL Normal 13.0-17.0 [facility] Comment on above: Performed By: #### B MP, CK, HS TROP, FE and TIBC, LILA, MG, SCAN CBC ####[address] Large Platelets Slight Normal [facility] Comment on above: Result Comment: PERF ORMED BY:[address] [place], [place] [phone] MEDICAL DIRECTORMIKE CABAN M.D. Performed By: #### B MP, CK, HS TROP, FE and TIBC, LILA, MG, SCAN CBC ####[address] [place] [address] [place] Lymphocytes (Bld) [#/Vol] 2.0 10*3/uL Normal 1.00-4.8 [facility] Comment on above: Performed By: #### B MP, CK, HS TROP, FE and TIBC, LILA, MG, SCAN CBC ####[address] Lymphocytes/100 WBC (Bld) 25.5 % Normal . [facility] Comment on above: Performed By: #### B MP, CK, HS TROP, FE and TIBC, LILA, MG, SCAN CBC ####[address] MCH (RBC) [Entitic mass] 25.7 pg Low 27.5-35.2 [facility] Comment on above: Performed By: #### B MP, CK, HS TROP, FE and TIBC, LILA, MG, SCAN CBC ####[address] MCV (RBC) [Entitic vol] 76.5 fL Low 83.5-101 [facility] Comment on above: Performed By: #### B MP, CK, HS TROP, FE and TIBC, LILA, MG, SCAN CBC ####[address] Mean Corpuscular HGB Conc 33.6 g/dL Normal 32.5-35.6 [facility] Comment on above: Performed By: #### B MP, CK, HS TROP, FE and TIBC, LILA, MG, SCAN CBC ####[address] Microcytosis Moderate Normal The [facility] Comment on above: Performed By: #### B MP, CK, HS TROP, FE and TIBC, LILA, MG, SCAN CBC ####[address] Monocytes (Bld) [#/Vol] 0.9 10*3/uL High 0.0-0.8 [facility] Comment on above: Performed By: #### B MP, CK, HS TROP, FE and TIBC, LILA, MG, SCAN CBC ####[address] Monocytes/100 WBC (Bld) 10.9 % Normal . [facility] Comment on above: Performed By: #### B MP, CK, HS TROP, FE and TIBC, LILA, MG, SCAN CBC ####[address] Neutrophils (Bld) [#/Vol] 4.6 10*3/uL Normal 1.8-7.7 [facility] Comment on above: Performed By: #### B MP, CK, HS TROP, FE and TIBC, LILA, MG, SCAN CBC ####[address] Neutrophils/100 WBC (Bld) 58.3 % Normal . [facility] Comment on above: Performed By: #### B MP, CK, HS TROP, FE and TIBC, LILA, MG, SCAN CBC ####[address] NRBC% 0.1 /100{WBC} Normal 0-0.[address] [facility] Comment on above: Performed By: #### B MP, CK, HS TROP, FE and TIBC, LILA, MG, SCAN CBC ####[address] Ovalocytes Slight Normal [facility] Comment on above: Performed By: #### B MP, CK, HS TROP, FE and TIBC, LILA, MG, SCAN CBC ####[address] Platelet Estimate Normal Normal Normal The [facility] Comment on above: Performed By: #### B MP, CK, HS TROP, FE and TIBC, LILA, MG, SCAN CBC ####[address] Platelet mean volume (Bld) [Entitic vol] 9.5 fL Normal 6.6-10.1 [facility] Comment on above: Performed By: #### B MP, CK, HS TROP, FE and TIBC, LILA, MG, SCAN CBC ####[address] Platelets (Bld) [#/Vol] 176 10*3/uL Normal 150-450 [facility] Comment on above: Performed By: #### B MP, CK, HS TROP, FE and TIBC, LILA, MG, SCAN CBC ####[address] Poikilocytosis Slight Normal The [facility] Comment on above: Performed By: #### B MP, CK, HS TROP, FE and TIBC, LILA, MG, SCAN CBC ####[address] Polychromasia Slight Normal The [facility] Comment on above: Performed By: #### B MP, CK, HS TROP, FE and TIBC, LILA, MG, SCAN CBC ####[address] RBC (Bld) [#/Vol] 5.09 10*6/uL Normal 3.90-5.60 The [facility] Comment on above: Performed By: #### B MP, CK, HS TROP, FE and TIBC, ILLA, MG, SCAN CBC ####[address] WBC (Bld) [#/Vol] 7.9 10*3/uL Normal 4.1-10.5 [facility] Comment on above: Performed By: #### B MP, CK, HS TROP, FE and TIBC, LILA, MG, SCAN CBC ####[address] Serum or plasma anion gap de terminationOrdered By: Abdullahi Canchola on 10-11-2024 Anion gap [Moles/Vol] Serum or plasma an ion gap determination High 6.0-15.0 [facility] Serum or plasma iron binding capacity measurement (mass/volume)Ordered By: Abdullahi Canchola on 10-11-2024 Iron binding capacity [Mass/Vol] Iron binding capacity [Mass/volume] in Serum or Plasma 255-450 [facility] Serum or plasma iron saturat ion measurement (mass fraction)Ordered By: Abdullahi Canchola on 10-11-2024 Iron saturation [Mass fraction] Iron saturation [Mass Fraction] in Serum or Plasma Low 20-50 [facility] Sodium [Moles/volume] in Ser um or PlasmaOrdered By: Abdullahi Canchola on 10-11-2024 Sodium [Moles/Vol] Sodium [Moles/volume ] in Serum or Plasma 136-145 [facility] Transferrin [Mass/volume] in Serum or PlasmaOrdered By: Abdullahi Canchola on 10-11-2024 Transferrin [Mass/Vol] Transferrin [Mass /volume] in Serum or Plasma 203-362 [facility] Troponin I High Sensitivityo n 10-11-2024 Troponin I High Sensitivity 5 Normal 0-20 [facility] Comment on above: Result Comment: The Troponin units of report have been changed to meet the Chest Pain Accreditation requirement, element EC5.M1l2. Troponin units are changed from pg/ml to ng/L. Also, the decimal is removed and results are in whole numbers.PERFORMED BY:[id number] [place] [address] [place], [place] [phone] MEDICAL DIRECTORMIKE CABAN M.D. Performed By: #### B MP, CK, HS TROP, FE and TIBC, LILA, MG, SCAN CBC ####[facility] [place] [address] [address] [facility] Troponin I.cardiac [Mass/vol ume] in Serum or Plasma by Detection limit <= 0.01 ng/Ordered By: Abdullahi Canchola on 10-11-2024 Troponin I.cardiac DL <= 0.01 ng/mL [Mass/Vol] Troponin I.cardiac [Mass/volume] in Serum or Plasma by Detection limit <= 0.01 ng/ 0-20 [facility] Comment on above: The Troponin units o [...] [Mass/volume] in Serum or Plasma High 7-25 [facility] WBC Auto (Bld) [#/Vol]Ordere d By: Abdullahi Canchola on 10-11-2024 WBC (Bld) [#/Vol] Leukocytes [#/volume ] in Blood by Automated count 4.1-10.5 [facility] Anisocytosis LM Ql (Bld)Orde red By: Jez Dominguez on 10-10-2024 Anisocytosis Ql (Bld) Anisocytosis [Pres ence] in Blood by Light microscopy [facility] B-Type Natriuretic Peptideon 10-10-2024 Natriuretic peptide B (Bld) [Mass/Vol] 17.0 pg/mL Normal 5-100 [facility] Comment on above: Result Comment: PERF ORMED BY:[address] [place], [place] [phone] MEDICAL DIRECTORMIKE CABAN M.D. Performed By: #### H S TROP, BNP, PT, BMP, SCAN CBC, CK ####[place] [id number] [facility] Basic Metabolic Panelon 050 Anion gap [Moles/Vol] 15.5 mmol/L High 6.0-15.0 Th e [facility] Comment on above: Performed By: #### H S TROP, BNP, PT, BMP, SCAN CBC, CK ####[place] [id number] [facility] Calcium [Mass/Vol] 9.7 mg/dL Normal 8.6-10.3 The [facility] Comment on above: Performed By: #### H S TROP, BNP, PT, BMP, SCAN CBC, CK ####[place] [id number] [facility] Chloride [Moles/Vol] 98 mmol/L Normal 98-107 [facility] Comment on above: Performed By: #### H S TROP, BNP, PT, BMP, SCAN CBC, CK ####[facility] [place] [address] [facility] CO2 [Moles/Vol] 25.6 mmol/L Normal 21.0-31.0 The [facility] Comment on above: Performed By: #### H S TROP, BNP, PT, BMP, SCAN CBC, CK ####[place] [address] [place] [address] [facility] Creatinine [Mass/Vol] 2.51 mg/dL High 0.70-1.30 [facility] Comment on above: Performed By: #### H S TROP, BNP, PT, BMP, SCAN CBC, CK ####[place] [address] [place] [phone] [facility] Creatinine Clr Calc Pharmacy 34.78 Normal [facility] Comment on above: Result Comment: PERF ORMED BY:[address] [place], [place] [phone] MEDICAL DIRECTORMIKE CABAN M.D. Performed By: #### H S TROP, BNP, PT, BMP, SCAN CBC, CK ####[place] [id number] [facility] Estimated GFR 28.735 mL/Min Normal The [facility] Comment on above: Performed By: #### H S TROP, BNP, PT, BMP, SCAN CBC, CK ####[place] [address] [place] [id number] [facility] Glucose [Mass/Vol] 278 mg/dL High 70-100 The [facility] Comment on above: Result Comment: [place] Glucose Reference Range is dependent on time and content of last meal. Glucose of more than 200 mg/dL in a nonstressed, ambulatory subject supports the diagnosis of Diabetes Mellitus. ADA recommended reference range Performed By: #### H S TROP, BNP, PT, BMP, SCAN CBC, CK ####[place] [address] [place] [address] [facility] Potassium [Moles/Vol] 4.1 mmol/L Normal 3.5-5.1 [facility] Comment on above: Performed By: #### H S TROP, BNP, PT, BMP, SCAN CBC, CK ####[facility] [address] Sodium [Moles/Vol] 135 mmol/L Low 136-145 [facility] Comment on above: Performed By: #### H S TROP, BNP, PT, BMP, SCAN CBC, CK ####[facility] Urea nitrogen [Mass/Vol] 41 mg/dL High 7-25 [facility] Comment on above: Performed By: #### H S TROP, BNP, PT, BMP, SCAN CBC, CK ####[facility] Basophils Auto (Bld) [#/Vol] Ordered By: Jez Dominguez on 10-10-2024 Basophils (Bld) [#/Vol] Automated basophil count 0.0-0.2 [facility] Basophils/100 WBC Auto (Bld) Ordered By: Jez Dominguez on 10-10-2024 Basophils/100 WBC (Bld) Automated basophil % . [facility] Calcium [Mass/volume] in Ser um or PlasmaOrdered By: Jez Dominguez on 10-10-2024 Calcium [Mass/Vol] Calcium [Mass/volume ] in Serum or Plasma 8.6-10.3 [facility] Carbon dioxide, total [Moles /volume] in Serum or PlasmaOrdered By: Jez Dominguez on 10-10-2024 CO2 [Moles/Vol] Carbon dioxide, tota l [Moles/volume] in Serum or Plasma 21.0-31.0 [facility] Chloride [Moles/volume] in S ilia or PlasmaOrdered By: Jez Dominguez on 10-10-2024 Chloride [Moles/Vol] Chloride [Moles/vol ume] in Serum or Plasma 98-107 [facility] Creatine Kinaseon 10-10-2024 CK [Catalytic activity/Vol] 101 U/L Normal 30-223 [facility] Comment on above: Performed By: #### H S TROP, CK ####[place] [address] CK [Catalytic activity/Vol] 126 U/L Normal 30 [facility] Comment on above: Performed By: #### H S TROP, BNP, PT, BMP, SCAN CBC, CK ####[facility] [id number] [place] [address] [facility] Creatine kinase [Enzymatic a ctivity/volume] in Serum or PlasmaOrdered By: Jez Dominguez on 10-10-2024 CK [Catalytic activity/Vol] Creatine kinase [Enzymatic activity/volume] in Serum or Plasma [facility] Creatinine [Mass/volume] in Serum or PlasmaOrdered By: Jez Dominguez on 10-10-2024 Creatinine [Mass/Vol] Creatinine [Mass/v olume] in Serum or Plasma High 0.70-1.30 [facility] ECG 12 lead ECGon 10-10-2024 ECG 12 lead ECG Normal [facility] ECG 12 lead ECG Normal [facility] ECG 12 lead ECG Normal [facility] Eosinophils Auto (Bld) [#/Vo l]Ordered By: Jez Dominguez on 10-10-2024 Eosinophils (Bld) [#/Vol] Automated eosinophil count 0.0-0.45 [facility] Eosinophils/100 WBC Auto (Bl d)Ordered By: Jez Dominguez on 10-10-2024 Eosinophils/100 WBC (Bld) Automated eosinophil % . [facility] Erythrocyte distribution wid th Auto (RBC) [Ratio]Ordered By: Jez Dominguez on 10-10-2024 Erythrocyte distribution width (RBC) [Ratio] Erythrocyte distribution width [Ratio] by Automated count High 12.0-14.8 [facility] Erythrocyte morphology findi ng [Identifier] in BloodOrdered By: Jez Dominguez on 10-10-2024 RBC morphology finding Nom (Bld) RBC morphology [facility] Glucose Poct Glucometerson 0 10-10-2024 Glucose [Mass/Vol] 204 mg/dL Normal The [facility] Comment on above: Result Comment: [facility] Glucose Reference Range is dependent on time and content of last meal. Glucose of more than 200 mg/dL in a nonstressed, ambulatory subject supports the diagnosis of Diabetes Mellitus.PERFORMED BY:[facility] [place], [place] [phone] MEDICAL DIRECTORMIKE CABAN M.D. Performed By: #### G NELI ####Point of Care testing, Glucose [Mass/volume] in Ser um or PlasmaOrdered By: Jez Dominguez on 10-10-2024 Glucose [Mass/Vol] Glucose [Mass/volume ] in Serum or Plasma High 70-100 [facility] Comment on above: ADA recommended refe rence rangeRandom Glucose Reference Range is dependent on time and content of last meal. Glucose of more than 200 mg/dL in a nonstressed, ambulatory subject supports the diagnosis of Diabetes Mellitus. Hematocrit Auto (Bld) [Volum e fraction]Ordered By: Jez Dominguez on 10-10-2024 Hematocrit (Bld) [Volume fraction] Hematocrit [Volume Fraction] of Blood by Automated count 38.8-50.0 [facility] Hemoglobin [Mass/volume] in BloodOrdered By: Jez Dominguez on 10-10-2024 Hemoglobin (Bld) [Mass/Vol] Hemoglobin [Mass/volume] in Blood 13.0-17.0 [facility] INR in Platelet poor plasma by Coagulation assayOrdered By: Jez Dominguez on 10-10-2024 INR Coag (PPP) [Relative time] INR in Platelet poor plasma by Coagulation assay [facility] Comment on above: INR Therapeutic Rang e [...] erythrocytes in Blood by Automated coun 4.1-10.5 [facility] Lymphocytes Auto (Bld) [#/Vo l]Ordered By: Jez Dominguez on 10-10-2024 Lymphocytes (Bld) [#/Vol] Lymphocytes [#/volume] in Blood by Automated count 1.00-4.8 [facility] Lymphocytes/100 WBC Auto (Bl d)Ordered By: Jez Dominguez on 10-10-2024 Lymphocytes/100 WBC (Bld) Lymphocytes/100 leukocytes in Blood by Automated count . [facility] MCH Auto (RBC) [Entitic mass ]Ordered By: Jez Dominguez on 10-10-2024 MCH (RBC) [Entitic mass] MCH [Entitic mass] by Automated count Low 27.5-35.2 [facility] MCHC Auto (RBC) [Mass/Vol]Or dered By: Jez Dominguez on 10-10-2024 MCHC (RBC) [Mass/Vol] MCHC [Mass/volume] by Automated count 32.5-35.6 [facility] MCV Auto (RBC) [Entitic vol] Ordered By: Jez Dominguez on 10-10-2024 MCV (RBC) [Entitic vol] MCV [Entitic volume] by Automated count Low 83.5-101 [facility] Microcytes LM Ql (Bld)Ordere d By: Jez Dominguez on 10-10-2024 Microcytes Ql (Bld) Microcytes [Presence ] in Blood by Light microscopy [facility] Monocyte distribution width [Entitic volume] in Blood by AutomatedOrdered By: Jez Dominguez on 10-10-2024 Monocyte distribution width Auto (Bld) [Entitic vol] Monocyte distribution width [Entitic volume] in Blood by Automated 0.00-20.00 [facility] Monocytes Auto (Bld) [#/Vol] Ordered By: Jez Dominguez on 10-10-2024 Monocytes (Bld) [#/Vol] Automated blood monocyte count 0.0-0.8 [facility] Monocytes/100 WBC Auto (Bld) Ordered By: Jez Dominguez on 10-10-2024 Monocytes/100 WBC (Bld) Automated monocyte % . [facility] Natriuretic peptide B [Mass/ Vol]Ordered By: Jez Dominguez on 10-10-2024 Natriuretic peptide B (Bld) [Mass/Vol] BNP ser/plas 5-100 [facility] Neutrophils Auto (Bld) [#/Vo l]Ordered By: Jez Dominguez on 10-10-2024 Neutrophils (Bld) [#/Vol] Neutrophils [#/volume] in Blood by Automated count 1.8-7.7 [facility] Neutrophils/100 WBC Auto (Bl d)Ordered By: Jez Dominguez on 10-10-2024 Neutrophils/100 WBC (Bld) Automated neutrophil % . [facility] No Panel InformationOrdered By: Jez Dominguez on 10-10-2024 Estimated GFR (CKD-EPI) 28.735 mL/Min [facility] Creatinine Clearance (Chem 34.78 [facility] Nucleated erythrocytes [Pres ence] in Blood by Automated countOrdered By: Jez Dominguez on 10-10-2024 Nucleated RBC Auto Ql (Bld) Nucleated erythrocytes [Presence] in Blood by Automated count 0-0.5 [facility] Platelet adequacy [Presence] in Blood by Light microscopyOrdered By: Jez Dominguez on 10-10-2024 Platelets LM Ql (Bld) Platelet adequacy [Presence] in Blood by Light microscopy Normal [facility] Platelet mean volume Auto (B ld) [Entitic vol]Ordered By: Jez Dominguez on 10-10-2024 Platelet mean volume (Bld) [Entitic vol] Platelet mean volume [Entitic volume] in Blood by Automated count 6.6-10.1 [facility] Platelet morphology finding [Identifier] in BloodOrdered By: Jez Dominguez on 10-10-2024 Platelet morphology finding Nom (Bld) Platelet morphology finding [Identifier] in Blood Normal [facility] Platelets Auto (Bld) [#/Vol] Ordered By: Jez Dominguez on 10-10-2024 Platelets (Bld) [#/Vol] Platelets [#/volume] in Blood by Automated count 150-450 [facility] Poikilocytosis [Presence] in Blood by Light microscopyOrdered By: Jez Dominguez on 10-10-2024 Poikilocytosis LM Ql (Bld) Poikilocytosis [Presence] in Blood by Light microscopy [facility] Polychromasia [Presence] in Blood by Light microscopyOrdered By: Jez Dominguez on 10-10-2024 Polychromasia LM Ql (Bld) Polychromasia [Presence] in Blood by Light microscopy [facility] Potassium [Moles/volume] in Serum or PlasmaOrdered By: Jez Dominguez on 10-10-2024 Potassium [Moles/Vol] Potassium [Moles/v olume] in Serum or Plasma 3.5-5.1 [facility] Prothrombin Time INRon 10-10 INR Coag (PPP) [Relative time] 1.0 {INR} Normal [facility] Comment on above: Result [...] with mechanical heart valves: 3 - 4.5PERFORMED BY:[address] [place], [place] [phone] MEDICAL DIRECTORMIKE CABAN M.D. Performed By: #### H S TROP, BNP, PT, BMP, SCAN CBC, CK ####[facility] [place] [address] [facility] PT Coag (PPP) [Time] 11.4 s Normal 9.0-12.9 [facility] Comment on above: Result Comment: A matocrit value greater than 55% may lead to inaccurate results in coagulation testing. Patients having hematocrit values >55% require a special collection tube for coagulation studies. Please contact the laboratory at [phone] for redraw instructions. Performed By: #### H S TROP, BNP, PT, BMP, SCAN CBC, CK ####[facility] [place] [address] [facility] Prothrombin time (PT)Ordered By: Jez Dominguez on 10-10-2024 PT Coag (PPP) [Time] Prothrombin time (PT) 9.0- 12.9 [facility] Comment on above: A hematocrit value g reater than 55% may lead to inaccurate results in coagulation testing. Patients having hematocrit values >55% require a special collection tube for coagulation studies. Please contact the laboratory at [phone] for redraw instructions. RBC Auto (Bld) [#/Vol]Ordere d By: Jez Dominguez on 10-10-2024 RBC (Bld) [#/Vol] Erythrocytes [#/volu me] in Blood by Automated count High 3.90-5.60 [facility] Scan and CBCon 10-10-2024 Anisocytosis Ql (Bld) Marked Normal [facility] Comment on above: Performed By: #### H S TROP, BNP, PT, BMP, SCAN CBC, CK ####[address] Basophils (Bld) [#/Vol] 0.1 10*3/uL Normal 0.0-0.2 [facility] Comment on above: Performed By: #### H S TROP, BNP, PT, BMP, SCAN CBC, CK ####[address] Basophils/100 WBC (Bld) 1.3 % Normal . [facility] Comment on above: Performed By: #### H S TROP, BNP, PT, BMP, SCAN CBC, CK ####[address] Eosinophils (Bld) [#/Vol] 0.3 10*3/uL Normal 0.0-0.45 [facility] Comment on above: Performed By: #### H S TROP, BNP, PT, BMP, SCAN CBC, CK ####[address] Eosinophils/100 WBC (Bld) 4.0 % Normal . [facility] Comment on above: Performed By: #### H S TROP, BNP, PT, BMP, SCAN CBC, CK ####[address] Erythrocyte distribution width (RBC) [Ratio] 23.4 % High 12.0-14.8 [facility] Comment on above: Performed By: #### H S TROP, BNP, PT, BMP, SCAN CBC, CK ####[address] Hematocrit (Bld) [Volume fraction] 42.4 % Normal 38.8-50.0 [facility] Comment on above: Performed By: #### H S TROP, BNP, PT, BMP, SCAN CBC, CK ####[address] Hemoglobin (Bld) [Mass/Vol] 14.4 g/dL Normal 13.0-17.0 [facility] Comment on above: Performed By: #### H S TROP, BNP, PT, BMP, SCAN CBC, CK ####[address] Lymphocytes (Bld) [#/Vol] 2.0 10*3/uL Normal 1.00-4.8 [facility] Comment on above: Performed By: #### H S TROP, BNP, PT, BMP, SCAN CBC, CK ####[address] Lymphocytes/100 WBC (Bld) 23.4 % Normal . [facility] Comment on above: Performed By: #### H S TROP, BNP, PT, BMP, SCAN CBC, CK ####[address] MCH (RBC) [Entitic mass] 25.6 pg Low 27.5-35.2 [facility] Comment on above: Performed By: #### H S TROP, BNP, PT, BMP, SCAN CBC, CK ####[address] MCV (RBC) [Entitic vol] 75.5 fL Low 83.5-101 [facility] Comment on above: Performed By: #### H S TROP, BNP, PT, BMP, SCAN CBC, CK ####[address] Mean Corpuscular HGB Conc 33.9 g/dL Normal 32.5-35.6 [facility] Comment on above: Performed By: #### H S TROP, BNP, PT, BMP, SCAN CBC, CK ####[address] Microcytosis Marked Normal [facility] Comment on above: Performed By: #### H S TROP, BNP, PT, BMP, SCAN CBC, CK ####[address] Monocytes (Bld) [#/Vol] 0.8 10*3/uL Normal 0.0-0.8 [facility] Comment on above: Performed By: #### H S TROP, BNP, PT, BMP, SCAN CBC, CK ####[address] Monocytes/100 WBC (Bld) 16.66 % Normal 0.00-20.00 [facility] Comment on above: Performed By: #### H S TROP, BNP, PT, BMP, SCAN CBC, CK ####[address] Monocytes/100 WBC (Bld) 9.5 % Normal . [facility] Comment on above: Performed By: #### H S TROP, BNP, PT, BMP, SCAN CBC, CK ####[address] Neutrophils (Bld) [#/Vol] 5.3 10*3/uL Normal 1.8-7.7 [facility] Comment on above: Performed By: #### H S TROP, BNP, PT, BMP, SCAN CBC, CK ####[address] Neutrophils/100 WBC (Bld) 61.8 % Normal . [facility] Comment on above: Performed By: #### H S TROP, BNP, PT, BMP, SCAN CBC, CK ####[address] NRBC% 0.2 /100{WBC} Normal 0-0.[address] [facility] Comment on above: Performed By: #### H S TROP, BNP, PT, BMP, SCAN CBC, CK ####[address] Platelet Estimate Normal Normal Normal The [facility] Comment on above: Performed By: #### H S TROP, BNP, PT, BMP, SCAN CBC, CK ####[address] [place] [address] [facility] Platelet mean volume (Bld) [Entitic vol] 9.8 fL Normal 6.6-10.1 The [facility] Comment on above: Performed By: #### H S TROP, BNP, PT, BMP, SCAN CBC, CK ####[address] [address] [facility] Platelet Morphology Normal Normal Normal The [facility] Comment on above: Result Comment: PERF ORMED BY:[address] [place], [place] [phone] MEDICAL DIRECTORMIKE CABAN M.D. Performed By: #### H S TROP, BNP, PT, BMP, SCAN CBC, CK ####[address] [address] [facility] Platelets (Bld) [#/Vol] 203 10*3/uL Normal 150-450 [facility] Comment on above: Performed By: #### H S TROP, BNP, PT, BMP, SCAN CBC, CK ####[address] [address] [facility] Poikilocytosis Slight Normal The [facility] Comment on above: Performed By: #### H S TROP, BNP, PT, BMP, SCAN CBC, CK ####[address] [address] [facility] Polychromasia Slight Normal The [facility] Comment on above: Performed By: #### H S TROP, BNP, PT, BMP, SCAN CBC, CK ####[address] [address] [facility] RBC (Bld) [#/Vol] 5.62 10*6/uL High 3.90-5.60 The [facility] Comment on above: Performed By: #### H S TROP, BNP, PT, BMP, SCAN CBC, CK ####[address] [address] [facility] WBC (Bld) [#/Vol] 8.7 10*3/uL Normal 4.1-10.5 The [facility] Comment on above: Performed By: #### H S TROP, BNP, PT, BMP, SCAN CBC, CK ####[place] [id number] [facility] Serum or plasma anion gap de terminationOrdered By: Jez Dominguez on 10-10-2024 Anion gap [Moles/Vol] Serum or plasma an ion gap determination High 6.0-15.0 [facility] Sodium [Moles/volume] in Ser um or PlasmaOrdered By: Jez Dominguez on 10-10-2024 Sodium [Moles/Vol] Sodium [Moles/volume ] in Serum or Plasma Low 136-145 [facility] Troponin I High Sensitivityo n 10-10-2024 Troponin I High Sensitivity 6 Normal 0-20 [facility] Comment on above: Result Comment: The Troponin units of report have been changed to meet the Chest Pain Accreditation requirement, element EC5.M1l2. Troponin units are changed from pg/ml to ng/L. Also, the decimal is removed and results are in whole numbers.PERFORMED BY:[address]rian[place], [place] [phone] MEDICAL DIRECTORMIKE CABAN M.D. Performed By: #### H S TROP, CK ####[address] [address] [facility] Troponin I High Sensitivity 6 Normal 0-20 The [facility] Comment on above: Order Comment: Result Comment: The Troponin units of report have been changed to meet the Chest Pain Accreditation requirement, element EC5.M1l2. Troponin units are changed from pg/ml to ng/L. Also, the decimal is removed and results are in whole numbers.PERFORMED BY:[address] [place], [place] [phone] MEDICAL DIRECTORMIKE CABAN M.D. Performed By: #### H S TROP ####[place] [id number] [facility] Troponin I High Sensitivity 6 Normal 0-20 [facility] Comment on above: Result Comment: The Troponin units of report have been changed to meet the Chest Pain Accreditation requirement, element EC5.M1l2. Troponin units are changed from pg/ml to ng/L. Also, the decimal is removed and results are in whole numbers.PERFORMED BY:[facility] [place] [address] [id number] MEDICAL DIRECTORMIKE CABAN M.D. Performed By: #### H S TROP, BNP, PT, BMP, SCAN CBC, CK ####[facility] [place] [address] [address] [facility] Troponin I.cardiac [Mass/vol ume] in Serum or Plasma by Detection limit <= 0.01 ng/Ordered By: Jez Dominguez on 10-10-2024 Troponin I.cardiac DL <= 0.01 ng/mL [Mass/Vol] Troponin I.cardiac [Mass/volume] in Serum or Plasma by Detection limit <= 0.01 ng/ 0-20 [facility] Comment on above: The Troponin units o [...] [Mass/volume] in Serum or Plasma High 7-25 [facility] WBC Auto (Bld) [#/Vol]Ordere d By: Jez Dominguez on 10-10-2024 WBC (Bld) [#/Vol] Leukocytes [#/volume ] in Blood by Automated count 4.1-10.5 [facility] X-ray reportOrdered By: Олег Oscar on 10-10-2024 Study report [facility] [address] [place] [address] XRay Report Signed Patient: Myra Pickard SR MR#: [id number] : 1965 Acct:[id number] Age/Sex: 59 / M ADM Date: 5 [...] Oscar M.D. 10/10/2024 3:12 PM Dictation Location: [facility]--17 Transcribed By: [facility] 10/10/24 1512 Dictated By: Олег Oscar II, MD 10/10/24 1509 Signed By: 10/10/24 1512 [facility] Work Phone: XR chest 2V*on 10-10-2024 XR chest 2V* Normal [facility] Ambulatory Visit Summaryon 0 [...] Yeyo ROWE MD Where: [facility] [address] [place] [address]- You Need to Schedule the Following Appointments Follow Up with Yeyo ROWE MD, URL When: Where: [facility] [place] [address]- Medications What How Much When Instructions Unchanged tamsulosin (tamsulosin 0.4 mg Cap) 1 Capsules By Mouth 2 times a day Pickup at [facility]/pharmacy #[id number] Unchanged albuterol (ProAir HFA) Inhalation Every 6 [...] day Cont (more content not included)... Normal [facility] Ambulatory Visit Summary Ambulatory Visit Summary [...] MARYBEL VANG PA-C Where: [facility] [address] [place] [address]- You Need to Schedule the Following Appointments Follow Up with SOLEDAD HERRERA, ROSALIA Garcia When: Where: [facility] [place] [address]- Medications What How Much When Instructions Unchanged [...] physician if (more content not included)... Normal [facility] Urology Office/Clinic Noteon 09-27-2024 Urology Office/Clinic [...] weeks in November 2022. [facility]24 with sudden onset scrotal/groin pain. [...] 5. Antiplatelet or antithrombotic long-term use (Z79.02: [facility] (current) use of antithrombotics/antiplate lets) On Plavix. Hx of SD. Elevated risk for periop complications in the future. Follow-up With When Contact Information Yeyo ROWE MD, URL [address] [place] [address]- Additional Instructions: 4 mos w/ PVR Patient [...] A Fibromyalgi (more content not included)... Normal [facility] Comment on above: Result Comment: Elec tronically Signed By: Yeyo ROWE MD\.br\Date and Time Signed: 09/27/24 12:03 EDT\.br\Electronically Co-Signed By: Mattie Foster\.br\Date and Time Co-Signed: 09/27/24 12:00 EDT HbA1c HPLC (Bld) [Mass fract ion]on 08-30-2024 HbA1c (Bld) [Mass fraction] Hemoglobin A1c/Hemoglobin.total in Blood by HPLC [facility] Alanine aminotransferase [En zymatic activity/volume] in Serum or PlasmaOrdered By: Kevon Viera on 08-13-2024 ALT [Catalytic activity/Vol] Alanine aminotransferase [Enzymatic activity/volume] in Serum or Plasma [facility] Albumin [Mass/volume] in Ser um or Plasma by Bromocresol green (BCG) dye binding methoOrdered By: Obaydah Daromar on 08-13-2024 Albumin BCG dye [Mass/Vol] Albumin [Mass/volume] in Serum or Plasma by Bromocresol green (BCG) dye binding metho Low 3.5-5.7 [facility] Alkaline phosphatase [Enzyma tic activity/volume] in Serum or PlasmaOrdered By: Obaydah Daromar on 08-13-2024 ALP [Catalytic activity/Vol] Alkaline phosphatase [Enzymatic activity/volume] in Serum or Plasma 34-104 [facility] Aspartate aminotransferase [ Enzymatic activity/volume] in Serum or PlasmaOrdered By: Obaydah Daromar on 08-13-2024 AST [Catalytic activity/Vol] Aspartate aminotransferase [Enzymatic activity/volume] in Serum or Plasma Low 13-39 [facility] Bilirubin.total [Mass/volume ] in Serum or PlasmaOrdered By: Obaydah Daromar on 08-13-2024 Bilirubin [Mass/Vol] Bilirubin.total [Mass/volume] in Serum or Plasma 0.3-1.0 [facility] Calcium [Mass/volume] in Ser um or PlasmaOrdered By: Obaydah Daromar on 08-13-2024 Calcium [Mass/Vol] Calcium [Mass/volume ] in Serum or Plasma Low 8.6-10.3 [facility] Carbon dioxide, total [Moles /volume] in Serum or PlasmaOrdered By: Obaydah Daromar on 08-13-2024 CO2 [Moles/Vol] Carbon dioxide, tota l [Moles/volume] in Serum or Plasma 21.0-31.0 [facility] Chloride [Moles/volume] in S ilia or PlasmaOrdered By: Obaydah Daromar on 08-13-2024 Chloride [Moles/Vol] Chloride [Moles/vol ume] in Serum or Plasma High 98-107 [facility] Comprehensive Metabolic Pane guy 08-13-2024 Albumin [Mass/Vol] 3.4 g/dL Low 3.5-5.7 [facility] Comment on above: Performed By: #### C BCNO, CMP ####[address] Albumin/Globulin [Mass ratio] 1.4 {ratio} Normal [facility] Comment on above: Performed By: #### C DANA, CMP ####[address] ALP [Catalytic activity/Vol] 93 U/L Normal 34-104 [facility] Comment on above: Performed By: #### C DANA, CMP ####[address] ALT [Catalytic activity/Vol] 9 U/L Normal 7-52 [facility] Comment on above: Performed By: #### C DANA, CMP ####[address] Anion gap [Moles/Vol] 10.7 mmol/L Normal 6.0-15.0 Th [facility] Comment on above: Performed By: #### C DANA, CMP ####[address] AST [Catalytic activity/Vol] 12 U/L Low 13-39 [facility] Comment on above: Performed By: #### C DANA, CMP ####[address] Bilirubin [Mass/Vol] 0.3 mg/dL Normal 0.3-1.0 [facility] Comment on above: Performed By: #### C DANA, CMP ####[address] Calcium [Mass/Vol] 7.5 mg/dL Low 8.6-10.3 The [facility] Comment on above: Performed By: #### C DANA, CMP ####[place] [id number] [facility] Chloride [Moles/Vol] 111 mmol/L High 98-107 [facility] Comment on above: Performed By: #### C DANA, CMP ####[place] [id number] [facility] CO2 [Moles/Vol] 21.5 mmol/L Normal 21.0-31.0 The [facility] Comment on above: Performed By: #### C DANA, CMP ####[place] [id number] [facility] Creatinine [Mass/Vol] 1.59 mg/dL High 0.70-1.30 [facility] Comment on above: Performed By: #### C DANA, CMP ####[address] Creatinine Clr Calc Pharmacy 54.91 Normal [facility] Comment on above: Result Comment: PERF ORMED BY:[address] [place], [place] [phone] MEDICAL DIRECTORMIKE CABAN M.D. Performed By: #### C DANA, CMP ####[address] Estimated GFR 49.698 mL/Min Normal The [facility] Comment on above: Performed By: #### C DANA, CMP ####[address] Globulin (S) [Mass/Vol] 2.4 g/dL Normal [facility] Comment on above: Performed By: #### C DANA, CMP ####[address] Glucose [Mass/Vol] 140 mg/dL High 70-100 [facility] Comment on above: Result Comment: [place] Glucose Reference Range is dependent on time and content of last meal. Glucose of more than 200 mg/dL in a nonstressed, ambulatory subject supports the diagnosis of Diabetes Mellitus. ADA recommended reference range Performed By: #### C DANA, CMP ####[address] Potassium [Moles/Vol] 4.2 mmol/L Normal 3.5-5.1 [facility] Comment on above: Performed By: #### C DANA, CMP ####[address] [place] [address] [facility] Protein [Mass/Vol] 5.8 g/dL Low 6.4-8.9 [facility] Comment on above: Performed By: #### C DANA, CMP ####[place] [address] Sodium [Moles/Vol] 139 mmol/L Normal 136-145 [facility] Comment on above: Performed By: #### C DANA, CMP ####[place] [address] Urea nitrogen [Mass/Vol] 13 mg/dL Normal 7-25 [facility] Comment on above: Performed By: #### C DANA, CMP ####[place] [address] Creatinine [Mass/volume] in Serum or PlasmaOrdered By: Kevon Viera on 08-13-2024 Creatinine [Mass/Vol] Creatinine [Mass/v olume] in Serum or Plasma High 0.70-1.30 [facility] Erythrocyte distribution wid th Auto (RBC) [Ratio]Ordered By: Kevon Haydenomar on 08-13-2024 Erythrocyte distribution width (RBC) [Ratio] Erythrocyte distribution width [Ratio] by Automated count High 12.0-14.8 [facility] Globulin Calc (S) [Mass/Vol] Ordered By: Kevon Haydenomar on 08-13-2024 Globulin (S) [Mass/Vol] Serum globulin measurement by calculation (mass/volume) [facility] Glucose Glucometer (BldC) [M ass/Vol]Ordered By: Kevon Bazzir on 08-13-2024 Glucose [Mass/Vol] Capillary blood gluc ose measurement by glucometer (mass/volume) [facility] Comment on above: Random Glucose Refer ence Range is dependent on time and content of last meal. Glucose of more than 200 mg/dL in a nonstressed, ambulatory subject supports the diagnosis of Diabetes Mellitus. Glucose Poct Glucometerson 0 08-13-2024 Glucose [Mass/Vol] 150 mg/dL Normal [facility] Comment on above: Result Comment: [facility] Glucose Reference Range is dependent on time and content of last meal. Glucose of more than 200 mg/dL in a nonstressed, ambulatory subject supports the diagnosis of Diabetes Mellitus.PERFORMED BY:[address] [place], [place] [phone] MEDICAL DIRECTORMIKE CABAN M.D. Performed By: #### G LULS ####Point of Care testing, Glucose [Mass/Vol] 173 mg/dL Normal [facility] Comment on above: Result Comment: [facility] Glucose Reference Range is dependent on time and content of last meal. Glucose of more than 200 mg/dL in a nonstressed, ambulatory subject supports the diagnosis of Diabetes Mellitus.PERFORMED BY:[address] [place], [place] [phone] MEDICAL DIRECTORMIKE CABAN M.D. Performed By: #### G LULS ####Point of Care testing, Glucose [Mass/volume] in Ser um or PlasmaOrdered By: Obshelly Viera on 08-13-2024 Glucose [Mass/Vol] Glucose [Mass/volume ] in Serum or Plasma High 70-100 [facility] Comment on above: ADA recommended refe rence rangeRandom Glucose Reference Range is dependent on time and content of last meal. Glucose of more than 200 mg/dL in a nonstressed, ambulatory subject supports the diagnosis of Diabetes Mellitus. Hematocrit Auto (Bld) [Volum e fraction]Ordered By: Objosedamaira Haydenomar on 08-13-2024 Hematocrit (Bld) [Volume fraction] Hematocrit [Volume Fraction] of Blood by Automated count Low 38.8-50.0 [facility] Hemoglobin [Mass/volume] in BloodOrdered By: Objosedamaira Haydenomar on 08-13-2024 Hemoglobin (Bld) [Mass/Vol] Hemoglobin [Mass/volume] in Blood Low 13.0-17.0 [facility] Hemogram CBC Without Diffon 08-13-2024 Erythrocyte distribution width (RBC) [Ratio] 19.9 % High 12.0-14.8 [facility] Comment on above: Performed By: #### C BCNO, CMP ####[place] [id number] [facility] Hematocrit (Bld) [Volume fraction] 30.0 % Low 38.8-50.0 [facility] Comment on above: Performed By: #### C BCNO, CMP ####[place] [id number] [facility] Hemoglobin (Bld) [Mass/Vol] 9.5 g/dL Low 13.0-17.0 [facility] Comment on above: Performed By: #### C BCNO, CMP ####[place] [id number] [facility] MCH (RBC) [Entitic mass] 21.5 pg Low 27.5-35.2 [facility] Comment on above: Performed By: #### C BCNO, CMP ####[place] [phone] [facility] MCV (RBC) [Entitic vol] 67.8 fL Low 83.5-101 [facility] Comment on above: Performed By: #### C BCMARI, CMP ####[place] [id number] [facility] Mean Corpuscular HGB Conc 31.7 g/dL Low 32.5-35.6 [facility] Comment on above: Performed By: #### C BCNO, CMP ####[place] [phone] [facility] Platelet mean volume (Bld) [Entitic vol] 10.1 fL Normal 6.6-10.1 [facility] Comment on above: Result Comment: PERF ORMED BY:[address] [place], [place] [phone] MEDICAL DIRECTORMIKE CABAN M.D. Performed By: #### C BCNO, CMP ####[place] [phone] [facility] Platelets (Bld) [#/Vol] 153 10*3/uL Normal 150-450 [facility] Comment on above: Performed By: #### C BCNO, CMP ####[facility] [id number] [place] [address] [facility] RBC (Bld) [#/Vol] 4.42 10*6/uL Normal 3.90-5.60 [facility] Comment on above: Performed By: #### C BCNO, CMP ####[facility] [address] [place] [address] [facility] WBC (Bld) [#/Vol] 8.0 10*3/uL Normal 4.1-10.5 [facility] Comment on above: Performed By: #### C BCNO, CMP ####[facility] [address] [place] [id number] [facility] Leukocytes [#/volume] correc jorge for nucleated erythrocytes in Blood by Automated counOrdered By: Objosedah Trendy Entertainmentomar on 08-13-2024 WBC corrected for nucl RBC Auto (Bld) [#/Vol] Leukocytes [#/volume] corrected for nucleated erythrocytes in Blood by Automated coun 4.1-10.5 [facility] MCH Auto (RBC) [Entitic mass ]Ordered By: ObRandolph Hospitaldah Trendy Entertainmentomar on 08-13-2024 MCH (RBC) [Entitic mass] MCH [Entitic mass] by Automated count Low 27.5-35.2 [facility] MCHC Auto (RBC) [Mass/Vol]Or dered By: Obaydah Trendy Entertainmentomar on 08-13-2024 MCHC (RBC) [Mass/Vol] MCHC [Mass/volume] by Automated count Low 32.5-35.6 [facility] MCV Auto (RBC) [Entitic vol] Ordered By: ObRandolph Hospitaldah Trendy Entertainmentomar on 08-13-2024 MCV (RBC) [Entitic vol] MCV [Entitic volume] by Automated count Low 83.5-101 [facility] No Panel InformationOrdered By: Objosedamaira Haydenomar on 08-13-2024 Estimated GFR (CKD-EPI) 49.698 mL/Min [facility] Creatinine Clearance (Chem 54.91 [facility] 49.698 mL/Min [facility] 54.91 [facility] Platelet mean volume Auto (B ld) [Entitic vol]Ordered By: Obaydah Daromar on 08-13-2024 Platelet mean volume (Bld) [Entitic vol] Platelet mean volume [Entitic volume] in Blood by Automated count 6.6-10.1 [facility] Platelets Auto (Bld) [#/Vol] Ordered By: Obaydah Daromar on 08-13-2024 Platelets (Bld) [#/Vol] Platelets [#/volume] in Blood by Automated count 150-450 [facility] Potassium [Moles/volume] in Serum or PlasmaOrdered By: Obaydah Daromar on 08-13-2024 Potassium [Moles/Vol] Potassium [Moles/v olume] in Serum or Plasma 3.5-5.1 [facility] Protein [Mass/volume] in Ser um or PlasmaOrdered By: Obaydah Daromar on 08-13-2024 Protein [Mass/Vol] Protein [Mass/volume ] in Serum or Plasma Low 6.4-8.9 [facility] RBC Auto (Bld) [#/Vol]Ordere d By: Obaydah Daromar on 08-13-2024 RBC (Bld) [#/Vol] Erythrocytes [#/volu me] in Blood by Automated count 3.90-5.60 [facility] Serum or plasma albumin/glob ulin mass ratioOrdered By: Obaydah Daromar on 08-13-2024 Albumin/Globulin [Mass ratio] Serum or plasma albumin/globulin mass ratio [facility] Serum or plasma anion gap de terminationOrdered By: Obaydah Daromar on 08-13-2024 Anion gap [Moles/Vol] Serum or plasma an ion gap determination 6.0-15.0 [facility] Sodium [Moles/volume] in Ser um or PlasmaOrdered By: Obaydah Daromar on 08-13-2024 Sodium [Moles/Vol] Sodium [Moles/volume ] in Serum or Plasma 136-145 [facility] Urea nitrogen [Mass/volume] in Serum or PlasmaOrdered By: Obaydah Daromar on 08-13-2024 Urea nitrogen [Mass/Vol] Urea nitrogen [Mass/volume] in Serum or Plasma 12-27 [facility] Albumin Levelon 08-12-2024 Albumin [Mass/Vol] 3.5 g/dL Normal 3.5-5.7 [facility] Comment on above: Result Comment: PERF ORMED BY:[address] [place], [place] [phone] MEDICAL DIRECTORMIKE CABAN M.D. Performed By: #### S CAN CBC, ALB, BMP ####[place] [id number] [place] [id number] [facility] Anisocytosis LM Ql (Bld)Orde red By: Marge Andino on 08-12-2024 Anisocytosis Ql (Bld) Anisocytosis [Pres ence] in Blood by Light microscopy [facility] Basic Metabolic Panelon 08-03 Anion gap [Moles/Vol] 11.6 mmol/L Normal 6.0-15.0 Th e [facility] Comment on above: Performed By: #### S CAN CBC, ALB, BMP ####[place] [phone] [facility] Calcium [Mass/Vol] 6.3 mg/dL Off scale low 8.6-10.3 [facility] Comment on above: Result Comment: Crit ical Result Called to and read back by: NOT FIRST TIME CRITICAL at: 08/12/2024 06:59:53 by:RAFAEL Performed By: #### S CAN CBC, ALB, BMP ####[place] [phone] [facility] Chloride [Moles/Vol] 107 mmol/L Normal 98-107 [facility] Comment on above: Performed By: #### S CAN CBC, ALB, BMP ####[place] [phone] [facility] CO2 [Moles/Vol] 25.1 mmol/L Normal 21.0-31.0 The [facility] Comment on above: Performed By: #### S CAN CBC, ALB, BMP ####[address] [place] [address] [facility] Creatinine [Mass/Vol] 1.79 mg/dL Significan t change up 0.70-1.30 [facility] Comment on above: Performed By: #### S CAN CBC, ALB, BMP ####[place] [phone] [facility] Creatinine Clr Calc Pharmacy 48.77 Normal [facility] Comment on above: Result Comment: PERF ORMED BY:[address] [place], [place] [phone] MEDICAL DIRECTORMIKE CABAN M.D. Performed By: #### S CAN CBC, ALB, BMP ####[address] Estimated GFR 43.111 mL/Min Normal The [facility] Comment on above: Performed By: #### S CAN CBC, ALB, BMP ####[address] Glucose [Mass/Vol] 91 mg/dL Normal 70-100 [facility] Comment on above: Result Comment: [place] Glucose Reference Range is dependent on time and content of last meal. Glucose of more than 200 mg/dL in a nonstressed, ambulatory subject supports the diagnosis of Diabetes Mellitus. ADA recommended reference range Performed By: #### S CAN CBC, ALB, BMP ####[place] [id number] [facility] Potassium [Moles/Vol] 3.7 mmol/L Normal 3.5-5.1 [facility] Comment on above: Performed By: #### S CAN CBC, ALB, BMP ####[place] [id number] [facility] Sodium [Moles/Vol] 140 mmol/L Normal 136-145 [facility] Comment on above: Performed By: #### S CAN CBC, ALB, BMP ####[place] [id number] [facility] Urea nitrogen [Mass/Vol] 20 mg/dL Normal 7-25 [facility] Comment on above: Performed By: #### S CAN CBC, ALB, BMP ####[facility] [address] [place] [address] [facility] Basophils Auto (Bld) [#/Vol] Ordered By: Marge Andino on 08-12-2024 Basophils (Bld) [#/Vol] Automated basophil count 0.0-0.2 [facility] Basophils/100 WBC Auto (Bld) Ordered By: Marge Andino on 08-12-2024 Basophils/100 WBC (Bld) Automated basophil % . [facility] Eosinophils Auto (Bld) [#/Vo l]Ordered By: Marge Andino on 08-12-2024 Eosinophils (Bld) [#/Vol] Automated eosinophil count 0.0-0.45 [facility] Eosinophils/100 WBC Auto (Bl d)Ordered By: Marge Andino on 08-12-2024 Eosinophils/100 WBC (Bld) Automated eosinophil % . [facility] Erythrocyte morphology findi ng [Identifier] in BloodOrdered By: Marge Andino on 08-12-2024 RBC morphology finding Nom (Bld) RBC morphology [facility] Glucose Poct Glucometerson 0 08-12-2024 Glucose [Mass/Vol] 168 mg/dL Normal [facility] Comment on above: Result Comment: [facility] Glucose Reference Range is dependent on time and content of last meal. Glucose of more than 200 mg/dL in a nonstressed, ambulatory subject supports the diagnosis of Diabetes Mellitus.PERFORMED BY:[address] [place], [place] [phone] MEDICAL DIRECTORMIKE CABAN M.D. Performed By: #### G LULS ####Point of Care testing, Glucose [Mass/Vol] 162 mg/dL Normal [facility] Comment on above: Result Comment: [facility] Glucose Reference Range is dependent on time and content of last meal. Glucose of more than 200 mg/dL in a nonstressed, ambulatory subject supports the diagnosis of Diabetes Mellitus.PERFORMED BY:[address] [place], [place] [phone] MEDICAL DIRECTORMIKE CABAN M.D. Performed By: #### G LULS ####Point of Care testing, Glucose [Mass/Vol] 179 mg/dL Normal [facility] Comment on above: Result Comment: [place] [facility] Glucose Reference Range is dependent on time and content of last meal. Glucose of more than 200 mg/dL in a nonstressed, ambulatory subject supports the diagnosis of Diabetes Mellitus.PERFORMED BY:[address] [place], [place] [phone] MEDICAL DIRECTORMIKE CABAN M.D. Performed By: #### G LULS ####Point of Care testing, Glucose [Mass/Vol] 98 mg/dL Normal [facility] Comment on above: Result Comment: [place] [facility] Glucose Reference Range is dependent on time and content of last meal. Glucose of more than 200 mg/dL in a nonstressed, ambulatory subject supports the diagnosis of Diabetes Mellitus.PERFORMED BY:[place] [address] [place], [place] [phone] MEDICAL DIRECTORMIKE CABAN M.D. Performed By: #### G LULS ####Point of Care testing, Hypochromia LM Ql (Bld)Order ed By: Marge Andino on 08-12-2024 Hypochromia Ql (Bld) Hypochromia [Presen ce] in Blood by Light microscopy [facility] Lymphocytes Auto (Bld) [#/Vo l]Ordered By: Marge Andino on 08-12-2024 Lymphocytes (Bld) [#/Vol] Lymphocytes [#/volume] in Blood by Automated count 1.00-4.8 [facility] Lymphocytes/100 WBC Auto (Bl d)Ordered By: Marge Andino on 08-12-2024 Lymphocytes/100 WBC (Bld) Lymphocytes/100 leukocytes in Blood by Automated count . [facility] Magnesiumon 08-12-2024 Magnesium [Mass/Vol] 2.9 mg/dL Significant change up 1.9-2.7 [facility] Comment on above: Result Comment: PERF ORMED BY:[facility] MUKULDarrianMaryCH[place], [place] [phone] MEDICAL DIRECTORMIKE CABAN M.D. Performed By: #### M G ####[facility] [address] [place] [address] [facility] Magnesium [Mass/volume] in S ilia or PlasmaOrdered By: Maurice Francis on 08-12-2024 Magnesium [Mass/Vol] Magnesium [Mass/vol ume] in Serum or Plasma Significant change up 1.9-2.7 [facility] Comment on above: Delta: 0.5 on -0415 Microcytes LM Ql (Bld)Ordere d By: Marge Andino on 08-12-2024 Microcytes Ql (Bld) Microcytes [Presence ] in Blood by Light microscopy [facility] Monocytes Auto (Bld) [#/Vol] Ordered By: Marge Andino on 08-12-2024 Monocytes (Bld) [#/Vol] Automated blood monocyte count 0.0-0.8 [facility] Monocytes/100 WBC Auto (Bld) Ordered By: Marge Andino on 08-12-2024 Monocytes/100 WBC (Bld) Automated monocyte % . [facility] Neutrophils Auto (Bld) [#/Vo l]Ordered By: Marge Andino on 08-12-2024 Neutrophils (Bld) [#/Vol] Neutrophils [#/volume] in Blood by Automated count High 1.8-7.7 [facility] Neutrophils/100 WBC Auto (Bl d)Ordered By: Marge Andino on 08-12-2024 Neutrophils/100 WBC (Bld) Automated neutrophil % . [facility] No Panel InformationOrdered By: Marge Andino on 08-12-2024 CBC Comment See comment [facility] Comment on above: There is significant microcytosis which suggests the possibility of iron deficiency. Consider serum ferritin and iron studies. See comment [facility] Nucleated erythrocytes [Pres ence] in Blood by Automated countOrdered By: Marge Andino on 08-12-2024 Nucleated RBC Auto Ql (Bld) Nucleated erythrocytes [Presence] in Blood by Automated count 0-0.5 [facility] Ovalocytes [Presence] in Blo od by Light microscopyOrdered By: Marge Andino on 08-12-2024 Ovalocytes LM Ql (Bld) Ovalocyte detection [facility] Platelet adequacy [Presence] in Blood by Light microscopyOrdered By: Marge Andino on 08-12-2024 Platelets LM Ql (Bld) Platelet adequacy [Presence] in Blood by Light microscopy Normal [facility] Platelet morphology finding [Identifier] in BloodOrdered By: Marge Andino on 08-12-2024 Platelet morphology finding Nom (Bld) Platelet morphology finding [Identifier] in Blood Normal [facility] Poikilocytosis [Presence] in Blood by Light microscopyOrdered By: Marge Andino on 08-12-2024 Poikilocytosis LM Ql (Bld) Poikilocytosis [Presence] in Blood by Light microscopy [facility] Scan and CBCon 08-12-2024 Additional Comments Normal [facility] Comment on above: Result Comment: Ther e is significant microcytosis which suggests the possibility of iron deficiency. Consider serum ferritin and iron studies.PERFORMED BY:[address] [place], [place] [phone] MEDICAL DIRECTORMIKE CABAN M.D. Performed By: #### S CAN CBC, ALB, BMP ####[place] [id number] [facility] Anisocytosis Ql (Bld) Marked Normal [facility] Comment on above: Performed By: #### S CAN CBC, ALB, BMP ####[address] [address] [place] Basophils (Bld) [#/Vol] 0.1 10*3/uL Normal 0.0-0.2 [facility] Comment on above: Performed By: #### S CAN CBC, ALB, BMP ####[place] [id number] [facility] Basophils/100 WBC (Bld) 0.8 % Normal . [facility] Comment on above: Performed By: #### S CAN CBC, ALB, BMP ####[address] Eosinophils (Bld) [#/Vol] 0.3 10*3/uL Normal 0.0-0.45 [facility] Comment on above: Performed By: #### S CAN CBC, ALB, BMP ####[address] Eosinophils/100 WBC (Bld) 3.1 % Normal . [facility] Comment on above: Performed By: #### S CAN CBC, ALB, BMP ####[address] Erythrocyte distribution width (RBC) [Ratio] 20.0 % High 12.0-14.8 [facility] Comment on above: Performed By: #### S CAN CBC, ALB, BMP ####[address] Hematocrit (Bld) [Volume fraction] 29.5 % Low 38.8-50.0 [facility] Comment on above: Performed By: #### S CAN CBC, ALB, BMP ####[address] Hemoglobin (Bld) [Mass/Vol] 9.5 g/dL Low 13.0-17.0 [facility] Comment on above: Performed By: #### S CAN CBC, ALB, BMP ####[address] Hypochromasia Slight Normal The [facility] Comment on above: Performed By: #### S CAN CBC, ALB, BMP ####[address] Lymphocytes (Bld) [#/Vol] 1.0 10*3/uL Normal 1.00-4.8 [facility] Comment on above: Performed By: #### S CAN CBC, ALB, BMP ####[address] Lymphocytes/100 WBC (Bld) 9.6 % Normal . [facility] Comment on above: Performed By: #### S CAN CBC, ALB, BMP ####[address] MCH (RBC) [Entitic mass] 21.9 pg Low 27.5-35.2 [facility] Comment on above: Performed By: #### S CAN CBC, ALB, BMP ####[address] MCV (RBC) [Entitic vol] 68.2 fL Low 83.5-101 [facility] Comment on above: Performed By: #### S CAN CBC, ALB, BMP ####[address] Mean Corpuscular HGB Conc 32.1 g/dL Low 32.5-35.6 [facility] Comment on above: Performed By: #### S CAN CBC, ALB, BMP ####[address] Microcytosis Moderate Normal [facility] Comment on above: Performed By: #### S CAN CBC, ALB, BMP ####[address] Monocytes (Bld) [#/Vol] 0.8 10*3/uL Normal 0.0-0.8 [facility] Comment on above: Performed By: #### S CAN CBC, ALB, BMP ####[address] Monocytes/100 WBC (Bld) 8.3 % Normal . [facility] Comment on above: Performed By: #### S CAN CBC, ALB, BMP ####[address] Neutrophils (Bld) [#/Vol] 8.0 10*3/uL High 1.8-7.7 [facility] Comment on above: Performed By: #### S CAN CBC, ALB, BMP ####[address] Neutrophils/100 WBC (Bld) 78.2 % Normal . [facility] Comment on above: Performed By: #### S CAN CBC, ALB, BMP ####[address] NRBC% 0.1 /100{WBC} Normal 0-0.[address] [facility] Comment on above: Performed By: #### S CAN CBC, ALB, BMP ####[address] Ovalocytes Slight Normal [facility] Comment on above: Performed By: #### S CAN CBC, ALB, BMP ####[address] Platelet Estimate Normal Normal Normal [facility] Comment on above: Performed By: #### S CAN CBC, ALB, BMP ####[address] Platelet mean volume (Bld) [Entitic vol] 9.4 fL Normal 6.6-10.1 [facility] Comment on above: Performed By: #### S CAN CBC, ALB, BMP ####[address] Platelet Morphology Normal Normal Normal [facility] Comment on above: Performed By: #### S CAN CBC, ALB, BMP ####[address] Platelets (Bld) [#/Vol] 162 10*3/uL Normal 150-450 [facility] Comment on above: Performed By: #### S CAN CBC, ALB, BMP ####[place] [id number] [facility] Poikilocytosis Slight Normal [facility] Comment on above: Performed By: #### S CAN CBC, ALB, BMP ####[address] RBC (Bld) [#/Vol] 4.32 10*6/uL Normal 3.90-5.60 [facility] Comment on above: Performed By: #### S CAN CBC, ALB, BMP ####[facility] [id number] [place] [address] [facility] WBC (Bld) [#/Vol] 10.2 10*3/uL Normal 4.1-10.5 [facility] Comment on above: Performed By: #### S CAN CBC, ALB, BMP ####[facility] [id number] [place] [id number] [facility] WBC Auto (Bld) [#/Vol]Ordere d By: Marge Andino on 08-12-2024 WBC (Bld) [#/Vol] Leukocytes [#/volume ] in Blood by Automated count 4.1-10.5 [facility] Alanine aminotransferase [En zymatic activity/volume] in Serum or PlasmaOrdered By: Francisco Duncan on 08-11-2024 ALT [Catalytic activity/Vol] Alanine aminotransferase [Enzymatic activity/volume] in Serum or Plasma 7-52 [facility] Albumin [Mass/volume] in Ser um or Plasma by Bromocresol green (BCG) dye binding methoOrdered By: Francisco Duncan on 08-11-2024 Albumin BCG dye [Mass/Vol] Albumin [Mass/volume] in Serum or Plasma by Bromocresol green (BCG) dye binding metho 3.5-5.7 [facility] Alkaline phosphatase [Enzyma tic activity/volume] in Serum or PlasmaOrdered By: Francisco Duncan on 08-11-2024 ALP [Catalytic activity/Vol] Alkaline phosphatase [Enzymatic activity/volume] in Serum or Plasma High 34-104 [facility] Anisocytosis LM Ql (Bld)Orde red By: Francisco Duncan on 08-11-2024 Anisocytosis Ql (Bld) Anisocytosis [Pres ence] in Blood by Light microscopy [facility] Appearance of UrineOrdered B y: Francisco Duncan on 08-11-2024 Appearance (U) Urine appearance Clear [facility] Aspartate aminotransferase [ Enzymatic activity/volume] in Serum or PlasmaOrdered By: Francisco Duncan on 08-11-2024 AST [Catalytic activity/Vol] Aspartate aminotransferase [Enzymatic activity/volume] in Serum or Plasma Low 13-39 [facility] Band form neutrophils/100 WB C Manual cnt (Bld)Ordered By: Francisco Duncan on 08-11-2024 Band form neutrophils/100 WBC (Bld) Peripheral white blood cell differential % bands, microscopic exam 0-5 [facility] Basophils Auto (Bld) [#/Vol] Ordered By: Francisco Duncan on 08-11-2024 Basophils (Bld) [#/Vol] Automated basophil count [facility] Basophils/100 WBC Auto (Bld) Ordered By: Francisco Duncan on 08-11-2024 Basophils/100 WBC (Bld) Automated basophil % [facility] Basophils/100 WBC Manual cnt (Bld)Ordered By: Francisco Duncan on 08-11-2024 Basophils/100 WBC (Bld) Basophils/100 leukocytes in Blood by Manual count 0-2 [facility] Bilirubin Test strip Ql (U)O rdered By: Francisco Duncan on 08-11-2024 Bilirubin Ql (U) Bilirubin.total [Presence] in Urine by Test strip Negative [facility] Bilirubin.total [Mass/volume ] in Serum or PlasmaOrdered By: Francisco Duncan on 08-11-2024 Bilirubin [Mass/Vol] Bilirubin.total [Mass/volume] in Serum or Plasma 0.3-1.0 [facility] [place] cells [Presence] in Blo od by Light microscopyOrdered By: Francisco Duncan on 08-11-2024 [place] cells LM Ql (Bld) Leigh Ann cells [Prese nce] in Blood by Light microscopy [facility] CT angio neckon 08-11-2024 CT angio neck Normal [facility] Calcium [Mass/volume] in Ser um or PlasmaOrdered By: Francisco Duncan on 08-11-2024 Calcium [Mass/Vol] Calcium [Mass/volume ] in Serum or Plasma Critically low 8.6-10.3 [facility] Comment on above: Critical Result Call ed to and read back by: MONCHO FINK at: 08/11/2024 04:56:06 by:RANDOLPH Carbon dioxide, total [Moles /volume] in Serum or PlasmaOrdered By: Francisco Dunacn on 08-11-2024 CO2 [Moles/Vol] Carbon dioxide, tota l [Moles/volume] in Serum or Plasma 21.0-31.0 [facility] Chloride [Moles/volume] in S ilia or PlasmaOrdered By: Francisco Duncan on 08-11-2024 Chloride [Moles/Vol] Chloride [Moles/vol ume] in Serum or Plasma 98-107 [facility] Color Auto (U)Ordered By: Brandon Duncan on 08-11-2024 Color (U) Color of Urine by Auto Yellow [facility] Pane guy 08-11-2024 Albumin [Mass/Vol] 4.2 g/dL Normal 3.5-5.7 [facility] Comment on above: Performed By: #### D IFF CBC, CK, PT, PTT, CMP, HS TROP ####[place] [id number] Albumin/Globulin [Mass ratio] 1.6 {ratio} Normal [facility] Comment on above: Performed By: #### D IFF CBC, CK, PT, PTT, CMP, HS TROP ####[address] ALP [Catalytic activity/Vol] 105 U/L High 34-104 [facility] Comment on above: Performed By: #### D IFF CBC, CK, PT, PTT, CMP, HS TROP ####[address] ALT [Catalytic activity/Vol] 11 U/L Normal 7-52 [facility] Comment on above: Performed By: #### D IFF CBC, CK, PT, PTT, CMP, HS TROP ####[place] [id number] [facility] Anion gap [Moles/Vol] 16.0 mmol/L High 6.0-15.0 [facility] Comment on above: Performed By: #### D IFF CBC, CK, PT, PTT, CMP, HS TROP ####[address] AST [Catalytic activity/Vol] 12 U/L Low 13-39 [facility] Comment on above: Performed By: #### D IFF CBC, CK, PT, PTT, CMP, HS TROP ####[address] Bilirubin [Mass/Vol] 0.4 mg/dL Normal 0.3-1.0 [facility] Comment on above: Performed By: #### D IFF CBC, CK, PT, PTT, CMP, HS TROP ####[place] [id number] [facility] Calcium [Mass/Vol] 6.1 mg/dL Off scale low 8.6-10.3 [facility] Comment on above: Result Comment: Crit ical Result Called to and read back by: MONCHO FINK at: 08/11/2024 04:56:06 by:RANDOLPH Performed By: #### D IFF CBC, CK, PT, PTT, CMP, HS TROP ####[place] [id number] [facility] Chloride [Moles/Vol] 100 mmol/L Normal 98-107 [facility] Comment on above: Performed By: #### D IFF CBC, CK, PT, PTT, CMP, HS TROP ####[address] CO2 [Moles/Vol] 27.1 mmol/L Normal 21.0-31.0 [facility] Comment on above: Performed By: #### D IFF CBC, CK, PT, PTT, CMP, HS TROP ####[place] [id number] [facility] Creatinine [Mass/Vol] 2.62 mg/dL High 0.70-1.30 [facility] Comment on above: Performed By: #### D IFF CBC, CK, PT, PTT, CMP, HS TROP ####[place] [id number] [facility] Creatinine Clr Calc Pharmacy 33.32 Normal [facility] Comment on above: Result Comment: PERF ORMED BY:[address] [place], [place] [phone] MEDICAL DIRECTORMIKE CABAN M.D. Performed By: #### D IFF CBC, CK, PT, PTT, CMP, HS TROP ####[facility] [place] [address] [facility] Estimated GFR 27.293 mL/Min Normal [facility] Comment on above: Performed By: #### D IFF CBC, CK, PT, PTT, CMP, HS TROP ####[facility] [place] [address] [facility] Globulin (S) [Mass/Vol] 2.7 g/dL Normal [facility] Comment on above: Performed By: #### D IFF CBC, CK, PT, PTT, CMP, HS TROP ####[place] [address] [place] [phone] [facility] Glucose [Mass/Vol] 102 mg/dL High 70-100 [facility] Comment on above: Result Comment: [place] Glucose Reference Range is dependent on time and content of last meal. Glucose of more than 200 mg/dL in a nonstressed, ambulatory subject supports the diagnosis of Diabetes Mellitus. ADA recommended reference range Performed By: #### D IFF CBC, CK, PT, PTT, CMP, HS TROP ####[place] [address] [place] [id number] [facility] Potassium [Moles/Vol] 3.1 mmol/L Low 3.5-5.1 [facility] Comment on above: Performed By: #### D IFF CBC, CK, PT, PTT, CMP, HS TROP ####[place] [address] [place] [address] [facility] Protein [Mass/Vol] 6.9 g/dL Normal 6.4-8.9 [facility] Comment on above: Performed By: #### D IFF CBC, CK, PT, PTT, CMP, HS TROP ####[place] [phone] [facility] Sodium [Moles/Vol] 140 mmol/L Normal 136-145 [facility] Comment on above: Performed By: #### D IFF CBC, CK, PT, PTT, CMP, HS TROP ####[place] [id number] [facility] Urea nitrogen [Mass/Vol] 26 mg/dL High 7-25 [facility] Comment on above: Performed By: #### D IFF CBC, CK, PT, PTT, CMP, HS TROP ####[place] [address] [place] [id number] [facility] Creatine Kinaseon 08-11-2024 CK [Catalytic activity/Vol] 305 U/L High 30 [facility] Comment on above: Performed By: #### D IFF CBC, CK, PT, PTT, CMP, HS TROP ####[address] Creatine kinase [Enzymatic a ctivity/volume] in Serum or PlasmaOrdered By: Francisco Duncan on 08-11-2024 CK [Catalytic activity/Vol] Creatine kinase [Enzymatic activity/volume] in Serum or Plasma High 30 [facility] Creatinine [Mass/volume] in Serum or PlasmaOrdered By: Francisco Duncan on 08-11-2024 Creatinine [Mass/Vol] Creatinine [Mass/v olume] in Serum or Plasma High 0.70-1.30 [facility] Diff and CBCon 08-11-2024 Anisocytosis Ql (Bld) Marked Normal [facility] Comment on above: Performed By: #### D IFF CBC, CK, PT, PTT, CMP, HS TROP ####[address] Band form neutrophils/100 WBC (Bld) 1 % Normal 0-5 [facility] Comment on above: Performed By: #### D IFF CBC, CK, PT, PTT, CMP, HS TROP ####[address] Basophils/100 WBC (Bld) 1 % Normal 0-2 [facility] Comment on above: Performed By: #### D IFF CBC, CK, PT, PTT, CMP, HS TROP ####[address] Crenated RBC Slight Normal [facility] Comment on above: Performed By: #### D IFF CBC, CK, PT, PTT, CMP, HS TROP ####[address] [place] [address] [place] Eosinophils/100 WBC (Bld) 4 % High 1-3 [facility] Comment on above: Performed By: #### D IFF CBC, CK, PT, PTT, CMP, HS TROP ####[address] Erythrocyte distribution width (RBC) [Ratio] 20.1 % High 12.0-14.8 [facility] Comment on above: Performed By: #### D IFF CBC, CK, PT, PTT, CMP, HS TROP ####[address] Hematocrit (Bld) [Volume fraction] 35.8 % Low 38.8-50.0 [facility] Comment on above: Performed By: #### D IFF CBC, CK, PT, PTT, CMP, HS TROP ####[address] Hemoglobin (Bld) [Mass/Vol] 11.6 g/dL Low 13.0-17.0 [facility] Comment on above: Performed By: #### D IFF CBC, CK, PT, PTT, CMP, HS TROP ####[address] Lymphocytes/100 WBC (Bld) 30 % Normal 18-42 [facility] Comment on above: Performed By: #### D IFF CBC, CK, PT, PTT, CMP, HS TROP ####[address] MCH (RBC) [Entitic mass] 21.8 pg Low 27.5-35.2 [facility] Comment on above: Performed By: #### D IFF CBC, CK, PT, PTT, CMP, HS TROP ####[address] MCV (RBC) [Entitic vol] 67.4 fL Low 83.5-101 [facility] Comment on above: Performed By: #### D IFF CBC, CK, PT, PTT, CMP, HS TROP ####[address] [place] [address] [facility] Mean Corpuscular HGB Conc 32.3 g/dL Low 32.5-35.6 [facility] Comment on above: Performed By: #### D IFF CBC, CK, PT, PTT, CMP, HS TROP ####[address] [address] [facility] Microcytosis Moderate Normal [facility] Comment on above: Performed By: #### D IFF CBC, CK, PT, PTT, CMP, HS TROP ####[address] [address] [facility] Monocytes/100 WBC (Bld) 17.90 % Normal 0.00-20.00 The [facility] Comment on above: Performed By: #### D IFF CBC, CK, PT, PTT, CMP, HS TROP ####[place] [id number] [facility] Monocytes/100 WBC (Bld) 5 % Normal 2-11 [facility] Comment on above: Performed By: #### D IFF CBC, CK, PT, PTT, CMP, HS TROP ####[place] [id number] [facility] Ovalocytes Slight Normal [facility] Comment on above: Performed By: #### D IFF CBC, CK, PT, PTT, CMP, HS TROP ####[address] [address] [facility] Platelet Estimate Normal Normal Normal The [facility] Comment on above: Performed By: #### D IFF CBC, CK, PT, PTT, CMP, HS TROP ####[address] [address] [facility] Platelet mean volume (Bld) [Entitic vol] 9.1 fL Normal 6.6-10.1 [facility] Comment on above: Result Comment: PERF ORMED BY:[address] [place], [place] [phone] MEDICAL DIRECTORMIKE CABAN M.D. Performed By: #### D IFF CBC, CK, PT, PTT, CMP, HS TROP ####[address] [address] [facility] Platelet Morphology Normal Normal Normal [facility] Comment on above: Result Comment: PERF ORMED BY:[address] [place], [place] [phone] MEDICAL DIRECTORMIKE CABAN M.D. Performed By: #### D IFF CBC, CK, PT, PTT, CMP, HS TROP ####[address] [address] [facility] Platelets (Bld) [#/Vol] 209 10*3/uL Normal 150-450 [facility] Comment on above: Performed By: #### D IFF CBC, CK, PT, PTT, CMP, HS TROP ####[address] [address] [facility] Poikilocytosis Slight Normal [facility] Comment on above: Performed By: #### D IFF CBC, CK, PT, PTT, CMP, HS TROP ####[address] [address] [facility] Polychromasia Slight Normal The [facility] Comment on above: Performed By: #### D IFF CBC, CK, PT, PTT, CMP, HS TROP ####[address] [address] [facility] RBC (Bld) [#/Vol] 5.32 10*6/uL Normal 3.90-5.60 [facility] Comment on above: Performed By: #### D IFF CBC, CK, PT, PTT, CMP, HS TROP ####[address] [address] [facility] Segmented neutrophils/100 WBC (Bld) 60 % Normal 50-70 [facility] Comment on above: Performed By: #### D IFF CBC, CK, PT, PTT, CMP, HS TROP ####[address] [address] [facility] WBC (Bld) [#/Vol] 10.7 10*3/uL High 4.1-10.5 [facility] Comment on above: Performed By: #### D IFF CBC, CK, PT, PTT, CMP, HS TROP ####[facility] [id number] [place] [address] [facility] ECG 12 lead ECGon 08-11-2024 ECG 12 lead ECG Normal [facility] Eosinophils Auto (Bld) [#/Vo l]Ordered By: Francisco Duncan on 08-11-2024 Eosinophils (Bld) [#/Vol] Automated eosinophil count [facility] Eosinophils/100 WBC Auto (Bl d)Ordered By: Francisco Duncan on 08-11-2024 Eosinophils/100 WBC (Bld) Automated eosinophil % [facility] Eosinophils/100 WBC Manual c nt (Bld)Ordered By: Francisco Duncan on 08-11-2024 Eosinophils/100 WBC (Bld) Eosinophils/100 leukocytes in Blood by Manual count High 1-3 [facility] Erythrocyte distribution wid th Auto (RBC) [Ratio]Ordered By: Francisco Duncan on 08-11-2024 Erythrocyte distribution width (RBC) [Ratio] Erythrocyte distribution width [Ratio] by Automated count High 12.0-14.8 [facility] Erythrocyte morphology findi ng [Identifier] in BloodOrdered By: Francisco Duncan on 08-11-2024 RBC morphology finding Nom (Bld) RBC morphology [facility] Ferritinon 08-11-2024 Ferritin [Mass/Vol] 5.3 ng/mL Low 23.9-336.2 [facility] Comment on above: Order Comment: Comme nt add Result Comment: PERF ORMED BY:[address] [place], [place] [phone] MEDICAL DIRECTORMIKE CABAN M.D. Performed By: #### F E and TIBC, LILA ####[facility] [address] [place] [address] [facility] Ferritin [Mass/volume] in Se rum or PlasmaOrdered By: Marge Andino on 08-11-2024 Ferritin [Mass/Vol] Ferritin [Mass/volum e] in Serum or Plasma Low 23.9-336.2 [facility] Folate [Mass/volume] in Seru m or PlasmaOrdered By: Marge Andino on 08-11-2024 Folate [Mass/Vol] Folate [Mass/volume] in Serum or Plasma >5.9 [facility] Comment on above: Folate reference ran ge: >5.9 ng/mlThe WHO technical consultation on folate and vitamin [id number] has determined that folate concentrations lessthan 4 ng/ml are considered deficient. Globulin Calc (S) [Mass/Vol] Ordered By: Francisco Duncan on 08-11-2024 Globulin (S) [Mass/Vol] Serum globulin measurement by calculation (mass/volume) [facility] Glucose Poct Glucometerson 0 08-11-2024 Commemt1 Glu2: Cleaned Meter Normal [facility] Comment on above: Result Comment: PERF ORMED BY:[place] [address] [place], [place] [phone] MEDICAL DIRECTORMIKE CABAN M.D. Performed By: #### G LULS ####Point of Care testing, Glucose [Mass/Vol] 241 mg/dL Normal The [facility] Comment on above: Result Comment: [place] om Glucose Reference Range is dependent on time and content of last meal. Glucose of more than 200 mg/dL in a nonstressed, ambulatory subject supports the diagnosis of Diabetes Mellitus. Performed By: #### G LULS ####Point of Care testing, Glucose [Mass/Vol] 244 mg/dL Normal [facility] Comment on above: Result Comment: [place] om Glucose Reference Range is dependent on time and content of last meal. Glucose of more than 200 mg/dL in a nonstressed, ambulatory subject supports the diagnosis of Diabetes Mellitus.PERFORMED BY:[place] [address] [place], [place] [phone] MEDICAL DIRECTORMIKE CABAN M.D. Performed By: #### G LULS ####Point of Care testing, Commemt1 Glu2: Cleaned Meter Normal [facility] Comment on above: Result Comment: PERF ORMED BY:[place] [address] [place] [phone] MEDICAL DIRECTORMIKE CABAN M.D. Performed By: #### G LULS ####Point of Care testing, Glucose [Mass/Vol] 89 mg/dL Normal [facility] Comment on above: Result Comment: [place] om Glucose Reference Range is dependent on time and content of last meal. Glucose of more than 200 mg/dL in a nonstressed, ambulatory subject supports the diagnosis of Diabetes Mellitus. Performed By: #### G LULS ####Point of Care testing, Glucose [Mass/Vol] 176 mg/dL Normal [facility] Comment on above: Result Comment: [place] om Glucose Reference Range is dependent on time and content of last meal. Glucose of more than 200 mg/dL in a nonstressed, ambulatory subject supports the diagnosis of Diabetes Mellitus.PERFORMED BY:[facility] [place], [place] [phone] MEDICAL DIRECTORMIKE CABAN M.D. Performed By: #### G LULS ####Point of Care testing, Glucose [Mass/volume] in Ser um or PlasmaOrdered By: Francisco Duncan on 08-11-2024 Glucose [Mass/Vol] Glucose [Mass/volume ] in Serum or Plasma High 70-100 [facility] Comment on above: ADA recommended refe rence [...] in Urine by Test strip High Normal [facility] Hematocrit Auto (Bld) [Volum e fraction]Ordered By: Francisco Duncan on 08-11-2024 Hematocrit (Bld) [Volume fraction] Hematocrit [Volume Fraction] of Blood by Automated count Low 38.8-50.0 [facility] Hemoglobin Test strip Ql (U) Ordered By: Francisco Duncan on 08-11-2024 Hemoglobin Ql (U) Hemoglobin [Presence ] in Urine by Test strip Negative [facility] Hemoglobin [Mass/volume] in BloodOrdered By: Francisco Duncan on 08-11-2024 Hemoglobin (Bld) [Mass/Vol] Hemoglobin [Mass/volume] in Blood Low 13.0-17.0 [facility] INR in Platelet poor plasma by Coagulation assayOrdered By: Francisco Duncan on 08-11-2024 INR Coag (PPP) [Relative time] INR in Platelet poor plasma by Coagulation assay [facility] Comment on above: INR Therapeutic Rang e [...] i n Serum or Plasma Low 50-212 [facility] Iron and TIBC Profileon 03-0 % Iron Saturation 7.0 % Low 20-50 [facility] Comment on above: Order Comment: Comme nt add Performed By: #### F E and TIBC, LILA ####[facility] [address] [place] [id number] [facility] Iron [Mass/Vol] 29 ug/dL Low 50-212 [facility] Comment on above: Order Comment: Comme nt add Performed By: #### F E and TIBC, LILA ####[facility] [id number] [place] [address] [facility] Total Iron Binding Capacity 414 ug/dL Normal 255-450 [facility] Comment on above: Order Comment: Comme nt add Performed By: #### F E and TIBC, LILA ####[facility] [address] [place] [address] [facility] Transferrin [Mass/Vol] 296 mg/dL Normal 203-362 Th e [facility] Comment on above: Order Comment: Comme nt add Performed By: #### F E and TIBC, LILA ####[facility] [id number] [place] [id number] [facility] Ketones Test strip Ql (U)Ord ered By: Francisco Duncan on 08-11-2024 Ketones Ql (U) Ketones [Presence] i n Urine by Test strip Negative [facility] Leukocyte esterase [Presence ] in Urine by Test stripOrdered By: Francisco Duncan on 08-11-2024 Leukocyte esterase Test strip Ql (U) Leukocyte esterase [Presence] in Urine by Test strip Negative [facility] Leukocytes [#/volume] correc jorge for nucleated erythrocytes in Blood by Automated counOrdered By: Francisco Duncan on 08-11-2024 WBC corrected for nucl RBC Auto (Bld) [#/Vol] Leukocytes [#/volume] corrected for nucleated erythrocytes in Blood by Automated coun High 4.1-10.5 [facility] Lymphocytes Auto (Bld) [#/Vo l]Ordered By: Francisco Duncan on 08-11-2024 Lymphocytes (Bld) [#/Vol] Lymphocytes [#/volume] in Blood by Automated count [facility] Lymphocytes/100 WBC Auto (Bl d)Ordered By: Francisco Duncan on 08-11-2024 Lymphocytes/100 WBC (Bld) Lymphocytes/100 leukocytes in Blood by Automated count [facility] Lymphocytes/100 WBC Manual c nt (Bld)Ordered By: Francisco Duncan on 08-11-2024 Lymphocytes/100 WBC (Bld) Lymphocytes/100 leukocytes in Blood by Manual count 18-42 [facility] MCH Auto (RBC) [Entitic mass ]Ordered By: Francisco Duncan on 08-11-2024 MCH (RBC) [Entitic mass] MCH [Entitic mass] by Automated count Low 27.5-35.2 [facility] MCHC Auto (RBC) [Mass/Vol]Or dered By: Francisco Duncan on 08-11-2024 MCHC (RBC) [Mass/Vol] MCHC [Mass/volume] by Automated count Low 32.5-35.6 [facility] MCV Auto (RBC) [Entitic vol] Ordered By: Francisco Duncan on 08-11-2024 MCV (RBC) [Entitic vol] MCV [Entitic volume] by Automated count Low 83.5-101 [facility] Magnesiumon 08-11-2024 Magnesium [Mass/Vol] 0.5 mg/dL Off scale low 1.9-2.7 T he [facility] Comment on above: Order Comment: Comme nt add Result Comment: Crit ical Result S_MG: Called to and read back by: MONCHO FINK at: 08/11/2024 06:13:29 by:RANDOLPH Performed By: #### T SH3, MG, [id number], [id number] ####[facility] [id number] [place] [address] [facility] Magnesium [Mass/volume] in S ilia or PlasmaOrdered By: Marge Andino on 08-11-2024 Magnesium [Mass/Vol] Magnesium [Mass/vol ume] in Serum or Plasma Critically low 1.9-2.7 [facility] Comment on above: Critical Result S_MG : Called to and read back by: MONCHO FINK at: 08/11/2024 06:13:29 by:RANDOLPH Microcytes LM Ql (Bld)Ordere d By: Francisco Duncan on 08-11-2024 Microcytes Ql (Bld) Microcytes [Presence ] in Blood by Light microscopy [facility] Monocyte distribution width [Entitic volume] in Blood by AutomatedOrdered By: Francisco Duncan on 08-11-2024 Monocyte distribution width Auto (Bld) [Entitic vol] Monocyte distribution width [Entitic volume] in Blood by Automated 0.00-20.00 [facility] Monocytes Auto (Bld) [#/Vol] Ordered By: Francisco Duncan on 08-11-2024 Monocytes (Bld) [#/Vol] Automated blood monocyte count [facility] Monocytes/100 WBC Auto (Bld) Ordered By: Francisco Duncan on 08-11-2024 Monocytes/100 WBC (Bld) Automated monocyte % [facility] Monocytes/100 WBC Manual cnt (Bld)Ordered By: Francisco Duncan on 08-11-2024 Monocytes/100 WBC (Bld) Monocytes/100 leukocytes in Blood by Manual count -11 [facility] Neutrophils Auto (Bld) [#/Vo l]Ordered By: Francisco Duncan on 08-11-2024 Neutrophils (Bld) [#/Vol] Neutrophils [#/volume] in Blood by Automated count [facility] Neutrophils/100 WBC Auto (Bl d)Ordered By: Francisco Duncan on 08-11-2024 Neutrophils/100 WBC (Bld) Automated neutrophil % [facility] Nitrite Test strip Ql (U)Ord ered By: Francisco Duncan on 08-11-2024 Nitrite Ql (U) Nitrite [Presence] i n Urine by Test strip Negative [facility] No Panel InformationOrdered By: Kevon Viera on 08-11-2024 Bedside Glucose Comment Glu2: cleaned meter [facility] Glu2: cleaned meter [facility] No Panel InformationOrdered By: Francisco Duncan on 08-11-2024 Estimated GFR (CKD-EPI) 27.293 mL/Min [facility] Creatinine Clearance (Chem 33.32 [facility] Nucleated erythrocytes [Pres ence] in Blood by Automated countOrdered By: Francisco Duncan on 08-11-2024 Nucleated RBC Auto Ql (Bld) Nucleated erythrocytes [Presence] in Blood by Automated count [facility] Ovalocytes [Presence] in Blo od by Light microscopyOrdered By: Francisco Duncan on 08-11-2024 Ovalocytes LM Ql (Bld) Ovalocyte detection [facility] Parathyrin.intact [Mass/volu me] in Serum or PlasmaOrdered By: Francisco Duncan on 08-11-2024 Parathyrin.intact [Mass/Vol] Parathyrin.intact [Mass/volume] in Serum or Plasma [facility] Parathyroid Hormone Intacton 08-11-2024 Parathyroid Hormone Intact 38.3 pg/mL Normal [facility] Comment on above: Result Comment: PERF ORMED BY:[facility] [place], [place] [phone] MEDICAL DIRECTORMIKE CABAN M.D. Performed By: #### P TH, PHOS ####[facility] [address] [place] [address] [place] Partial Thromboplastin Timeo n 08-11-2024 aPTT Coag (Bld) [Time] 30.9 s Normal 25.1-36.5 Th e [facility] Comment on above: Result Comment: A he matocrit value greater than 55% may lead to inaccurate results in coagulation testing. Patients having hematocrit values >55% require a special collection tube for coagulation studies. Please contact the laboratory at [phone] for redraw instructions.PERFORMED BY:[place] [address] [place], [place] [phone] MEDICAL DIRECTORMIKE CABAN M.D. Performed By: #### D IFF CBC, CK, PT, PTT, CMP, HS TROP ####[address] [address] [facility] Phosphate [Mass/volume] in S ilia or PlasmaOrdered By: Francisco Duncan on 08-11-2024 Phosphate [Mass/Vol] Phosphate [Mass/vol ume] in Serum or Plasma High 2.5-4.5 [facility] Phosphoruson 08-11-2024 Phosphate [Mass/Vol] 4.8 mg/dL High 2.5-4.5 [facility] Comment on above: Result Comment: PERF ORMED BY:[place] [address] [place], [place] [phone] MEDICAL DIRECTORMIKE CABAN M.D. Performed By: #### P TH, PHOS ####[address] [address] [facility] Platelet adequacy [Presence] in Blood by Light microscopyOrdered By: Francisco Duncan on 08-11-2024 Platelets LM Ql (Bld) Platelet adequacy [Presence] in Blood by Light microscopy Normal [facility] Platelet mean volume Auto (B ld) [Entitic vol]Ordered By: Francisco Duncan on 08-11-2024 Platelet mean volume (Bld) [Entitic vol] Platelet mean volume [Entitic volume] in Blood by Automated count 6.6-10.1 [facility] Platelet morphology finding [Identifier] in BloodOrdered By: Francisco Duncan on 08-11-2024 Platelet morphology finding Nom (Bld) Platelet morphology finding [Identifier] in Blood Normal [facility] Platelets Auto (Bld) [#/Vol] Ordered By: Francisco Duncan on 08-11-2024 Platelets (Bld) [#/Vol] Platelets [#/volume] in Blood by Automated count 150-450 [facility] Poikilocytosis [Presence] in Blood by Light microscopyOrdered By: Francisco Duncan on 08-11-2024 Poikilocytosis LM Ql (Bld) Poikilocytosis [Presence] in Blood by Light microscopy [facility] Polychromasia [Presence] in Blood by Light microscopyOrdered By: Francisco Duncan on 08-11-2024 Polychromasia LM Ql (Bld) Polychromasia [Presence] in Blood by Light microscopy [facility] Potassium [Moles/volume] in Serum or PlasmaOrdered By: Francisco Duncan on 08-11-2024 Potassium [Moles/Vol] Potassium [Moles/v olume] in Serum or Plasma Low 3.5-5.1 [facility] Protein Test strip (U) [Mass /Vol]Ordered By: Francisco Duncan on 08-11-2024 Protein (U) [Mass/Vol] Protein [Mass/vol ume] in Urine by Test strip Negative [facility] Protein [Mass/volume] in Ser um or PlasmaOrdered By: Francisco Duncan on 08-11-2024 Protein [Mass/Vol] Protein [Mass/volume ] in Serum or Plasma 6.4-8.9 [facility] Prothrombin Time INRon 08-11 INR Coag (PPP) [Relative time] 1.2 {INR} Normal [facility] Comment on above: Result [...] CBC, CK, PT, PTT, CMP, HS TROP ####[facility] [address] [place] [address] [facility] PT Coag (PPP) [Time] 13.8 s High 9.0-12.9 [facility] Comment on above: Result Comment: A he matocrit value greater than 55% may lead to inaccurate results in coagulation testing. Patients having hematocrit values >55% require a special collection tube for coagulation studies. Please contact the laboratory at [phone] for redraw instructions. Performed By: #### D IFF CBC, CK, PT, PTT, CMP, HS TROP ####[facility] [id number] [place] [phone] [facility] Prothrombin time (PT)Ordered By: Francisco Duncan on 08-11-2024 PT Coag (PPP) [Time] Prothrombin time (PT) High 9.0- 12.9 [facility] Comment on above: A hematocrit value g reater than 55% may lead to inaccurate results in coagulation testing. Patients having hematocrit values >55% require a special collection tube for coagulation studies. Please contact the laboratory at [phone] for redraw instructions. RBC Auto (Bld) [#/Vol]Ordere d By: Francisco Duncan on 08-11-2024 RBC (Bld) [#/Vol] Erythrocytes [#/volu me] in Blood by Automated count 3.90-5.60 [facility] Segmented neutrophils/100 WB C Manual cnt (Bld)Ordered By: Francisco Duncan on 08-11-2024 Segmented neutrophils/100 WBC (Bld) Manual blood segmented neutrophils/100 leukocytes 50-70 [facility] Serum or plasma albumin/glob ulin mass ratioOrdered By: Francisco Duncan on 08-11-2024 Albumin/Globulin [Mass ratio] Serum or plasma albumin/globulin mass ratio [facility] Serum or plasma anion gap de terminationOrdered By: Francisco Duncan on 08-11-2024 Anion gap [Moles/Vol] Serum or plasma an ion gap determination High 6.0-15.0 [facility] Serum or plasma iron binding capacity measurement (mass/volume)Ordered By: Marge Andino on 08-11-2024 Iron binding capacity [Mass/Vol] Iron binding capacity [Mass/volume] in Serum or Plasma 255-450 [facility] Serum or plasma iron saturat ion measurement (mass fraction)Ordered By: Marge Andino on 08-11-2024 Iron saturation [Mass fraction] Iron saturation [Mass Fraction] in Serum or Plasma Low 20-50 [facility] Sodium [Moles/volume] in Ser um or PlasmaOrdered By: Francisco Duncan on 08-11-2024 Sodium [Moles/Vol] Sodium [Moles/volume ] in Serum or Plasma 136-145 [facility] Specific gravity Test strip (U) [Rel density]Ordered By: Francisco Duncan on 08-11-2024 Specific gravity (U) [Rel density] Specific gravity of Urine by Test strip 1.001-1.03 0 [facility] Thyroid Stimulating Hormoneo n 08-11-2024 TSH Qn 4.18 m[IU]/L Normal 0.45-5.33 [facility] Comment on above: Order Comment: Comme nt add Performed By: #### T SH3, MG, [id number], [id number] ####[facility] [address] [place] [address] [facility] Thyrotropin [Units/volume] i n Serum or PlasmaOrdered By: Marge Andino on 08-11-2024 TSH Qn Thyrotropin [Units/volume] in Serum or Plasma 0.45-5.33 [facility] Transferrin [Mass/volume] in Serum or PlasmaOrdered By: Marge Andino on 08-11-2024 Transferrin [Mass/Vol] Transferrin [Mass /volume] in Serum or Plasma 203-362 [facility] Troponin I High Sensitivityo n 08-11-2024 Troponin I High Sensitivity 6 Normal 0-20 [facility] Comment on above: Result Comment: The Troponin units of report have been changed to meet the Chest Pain Accreditation requirement, element EC5.M1l2. Troponin units are changed from pg/ml to ng/L. Also, the decimal is removed and results are in whole numbers.PERFORMED BY:[id number] [place] [address] [place], [place] [phone] MEDICAL DIRECTORMIKE CABAN M.D. Performed By: #### D IFF CBC, CK, PT, PTT, CMP, HS TROP ####[facility] [id number] [place] [address] [facility] Troponin I.cardiac [Mass/vol ume] in Serum or Plasma by Detection limit <= 0.01 ng/Ordered By: Francisco Duncan on 08-11-2024 Troponin I.cardiac DL <= 0.01 ng/mL [Mass/Vol] Troponin I.cardiac [Mass/volume] in Serum or Plasma by Detection limit <= 0.01 ng/ 0-20 [facility] Comment on above: The Troponin units o [...] [Mass/volume] in Serum or Plasma High 7-25 [facility] Urinalysison 08-11-2024 Appearance (U) Clear Normal Clear [facility] Comment on above: Order Comment: Name Collection Type:: Voided Performed By: #### U A ####[place] [id number] [facility] Bilirubin,Urine Negative Normal Negative [facility] Comment on above: Order Comment: Name Collection Type:: Voided Performed By: #### U A ####[place] [id number] [facility] Color (U) Light-Yellow Normal Yellow [facility] Comment on above: Order Comment: Name Collection Type:: Voided Performed By: #### U A ####[address] [address] [facility] Glucose Ql (U) 500 mg/dL High Normal [facility] Comment on above: Order Comment: Name Collection Type:: Voided Performed By: #### U A ####[address] [address] [facility] Ketones Ql (U) Negative Normal Negative [facility] Comment on above: Order Comment: Name Collection Type:: Voided Performed By: #### U A ####[address] [address] [facility] Leukocyte esterase Test strip Ql (U) Negative Normal Negative [facility] Comment on above: Order Comment: Name Collection Type:: Voided Performed By: #### U A ####[address] [address] [facility] Nitrite,Urine Negative Normal Negative [facility] Comment on above: Order Comment: Name Collection Type:: Voided Performed By: #### U A ####[address] [address] [facility] Occult Blood,Urine Negative Normal Negative [facility] Comment on above: Order Comment: Name Collection Type:: Voided Result Comment: PERF ORMED BY:[address] [place], [place] [phone] MEDICAL DIRECTORMIKE CABAN M.D. Performed By: #### U A ####[place] [id number] [facility] pH (U) 5.5 [pH] Normal 5.0-9.0 [facility] Comment on above: Order Comment: Name Collection Type:: Voided Performed By: #### U A ####[place] [id number] [facility] Protein,Urine Negative Normal Negative [facility] Comment on above: Order Comment: Name Collection Type:: Voided Performed By: #### U A ####[place] [id number] [facility] Specificy [place],Urine 1.024 Normal 1.001-1.03 0 [facility] Comment on above: Order Comment: Name Collection Type:: Voided Performed By: #### U A ####[place] [id number] [facility] Urobilinogen,Urine Normal Normal Normal [facility] Comment on above: Order Comment: Name Collection Type:: Voided Performed By: #### U A ####[place] [id number] [facility] Urobilinogen Test strip (U) [Mass/Vol]Ordered By: Francisco Duncan on 08-11-2024 Urobilinogen (U) [Mass/Vol] Urobilinogen [Mass/volume] in Urine by Test strip Normal [facility] Vit. B12/Folate Profileon Cobalamin (Vitamin B12) [Mass/Vol] 129 pg/mL Low 180-914 [facility] Comment on above: Order Comment: Comme nt add Performed By: #### T SH3, MG, [id number], [id number] ####[facility] [place] [address] [facility] Folate 14.0 ng/mL Normal >5.9 [facility] Comment on above: Order Comment: Comme nt add Result Comment: Aure te reference range: >5.9 ng/ml The WHO technical consultation on folate and vitamin b12 deficiencies has determined that folate concentrations less than 4 ng/ml are considered deficient. Performed By: #### T SH3, MG, [id number], [id number] ####[place] [address] [place] [address] [facility] Vitamin B12 ser/plasOrdered By: Marge Andino on 08-11-2024 Cobalamin (Vitamin B12) [Mass/Vol] Vitamin B12 ser/plas Low 180-914 [facility] Vitamin D 25 Hydroxy Totalon 08-11-2024 Vitamin D 25 Hydroxy Total 15.0 ng/mL Low 30-100 [facility] Comment on above: Order Comment: Comme nt add Result Comment: SUBHA MIN D STATUS 25(OH)VITAMIN D RANGE (ng/mL) Deficient <20 Insufficient 20 to <30 Sufficient 30 to 100 Reference: Marisol MF,Ibrahima NC, Kasey LONG, et al. Evaluation,treatment, and prevention of vitamin D deficiency; an Endocrine Society clinical practice guideline. JCEM. 2010; 96(7):1911-30.PERFORMED BY:[place] [address] [place], [place] [phone] MEDICAL DIRECTORMIKE CABAN M.D. Performed By: #### T SH3, MG, [id number], [id number] ####[place] [address] [place] [address] [facility] Vitamin D+Metabolites [Mass/ volume] in Serum or PlasmaOrdered By: Mrage Andino on 08-11-2024 Vitamin D+Metabolites [Mass/Vol] Vitamin D+Metabolites [Mass/volume] in Serum or Plasma Low 30-100 [facility] Comment on above: VITAMIN D STATUS 25( [...] in Blood by Automated count High 4.1-10.5 [facility] X-ray reportOrdered By: Jose Lind on 08-11-2024 Study report [facility] [place] [address] XRay Report Signed Patient: Myra Pickard SR MR#: [id number] : 1965 Acct:[id number] Age/Sex: 59 / M ADM Date: 5 Loc: Room: [address] [place] [address] Type: ADM IN Attending Dr: Kevon Viera [...] Sudeep Lind M.D.08/11/2024 10:06 AM Dictation Location: [place] [address] Transcribed By: [facility] 08/11/24 1006 Dictated By: Sudeep Lind DO 08/11/24 1006 Signed By: 08/11/24 1006 [facility] XR chest 1V portableon 08-11 XR chest 1V portable Normal [facility] aPTT in Platelet poor plasma by Coagulation assayOrdered By: Francisco Duncan on 08-11-2024 aPTT Coag (PPP) [Time] Activated partial thromboplastin time (aPTT) in platelet poor plasma by coagulation a 25.1-36.5 [facility] Comment on above: A hematocrit value g reater than 55% may lead to inaccurate results in coagulation testing. Patients having hematocrit values >55% require a special collection tube for coagulation studies. Please contact the laboratory at [phone] for redraw instructions. pH Test strip (U)Ordered By: Francisco Duncan on 08-11-2024 pH (U) pH of Urine by Test strip 5.0-9.0 [facility] Urology Office/Clinic Noteon 08-06-2024 Urology Office/Clinic Note Urology Office/Clinic Note Chief Complaint Patient is here for scrotal pain HPI Staff Patient is here for f/u to [facility] ER 07/24/24 due to scrotal pain. [...] pain meds. Will provide limited rx Ultr[employer]. Activities Therapist Cl 44. 08/02/2024 09:33:52 I certify that I have reviewed the OARRS report and all PDMP information in this chart. Follow-up With When Contact Information [facility] Additional Instructions: Only if needed/new problems arise. [...] [Hypertension] SD (myocardial infarction) NIDDM Procedure/Surgical History BKA - [...] cap(s), Oral, (more content not included)... Normal [facility] Comment on above: Result Comment: Elec tronically Signed By: RASHI KURTZ, MARYBEL Colmenares\.nile\Date and Time Signed: 08/06/24 12:28 EST Basophils Auto (Bld) [#/Vol] on 07-24-2024 Basophils (Bld) [#/Vol] Automated basophil count 0.0-0.1 [facility] Basophils/100 WBC Auto (Bld) on 07-24-2024 Basophils/100 WBC (Bld) Automated basophil % 0.2-2.0 [facility] Eosinophils/100 WBC Auto (Bl d)on 07-24-2024 Eosinophils/100 WBC (Bld) Automated eosinophil % 0.9-7.0 [facility] Erythrocyte distribution wid th Auto (RBC) [Ratio]on 07-24-2024 Erythrocyte distribution width (RBC) [Ratio] Erythrocyte distribution width [Ratio] by Automated count High 11.0-15.0 [facility] Estimated glomerular filtrat ion rate (GFR) non- Americanon 07-24-2024 GFR/1.73 sq M.predicted among non-blacks MDRD (S/P/Bld) [Vol rate/Area] Estimated glomerular filtration rate (GFR) non- Low >=60 mL/min/1.7 3m 2 [facility] Globulin Calc (S) [Mass/Vol] on 07-24-2024 Globulin (S) [Mass/Vol] Serum globulin measurement by calculation (mass/volume) [facility] Hematocrit Auto (Bld) [Volum e fraction]on 07-24-2024 Hematocrit (Bld) [Volume fraction] Hematocrit [Volume Fraction] of Blood by Automated count Low 42.0-54.0 [facility] Hemoglobin [Mass/volume] in Bloodon 07-24-2024 Hemoglobin (Bld) [Mass/Vol] Hemoglobin [Mass/volume] in Blood Low 14.0-18.0 [facility] Laboratory - Chemistry and C hemistry - challengeon 07-24-2024 Albumin [Mass/Vol] 3.3 g/dL Low 3.4-5.[address] [facility] ALP [Catalytic activity/Vol] 111 U/L 46-116 [facility] ALT [Catalytic activity/Vol] 16 U/L 16-63 [facility] AST [Catalytic activity/Vol] 11 U/L Low 15-37 [facility] Bilirubin [Mass/Vol] 0.4 mg/dL 0.2-1.0 [facility] Calcium [Mass/Vol] 8.4 mg/dL Low 8.5-10.[address] [facility] Chloride [Moles/Vol] 102 mmol/L 98-107 [facility] CO2 [Moles/Vol] 26.3 mmol/L 21.0-32.0 [facility] Creatinine [Mass/Vol] 2.28 mg/dL High 0.70-1.30 [facility] GFR/1.73 sq M.predicted MDRD (S/P/Bld) [Vol rate/Area] 36 mL/min/{1.73_m2} Low >=60 mL/min/1.7 3m 2 [facility] Glucose [Mass/Vol] 177 mg/dL High 74-[address] [facility] Lactate [Moles/Vol] 1.8 mmol/L 0.4-2.0 [facility] Potassium [Moles/Vol] 3.4 mmol/L Low 3.5-5.1 [facility] Protein [Mass/Vol] 7.0 g/dL 6.4-8.[address] [facility] Sodium [Moles/Vol] 139 mmol/L 136-[address] [facility] Urea nitrogen [Mass/Vol] 22.0 mg/dL High 7.0-18.0 [facility] Urea nitrogen/Creatinine [Mass ratio] 9.6 mg/mg [facility] Laboratory - Hematology and Cell countson 07-24-2024 Immature granulocytes/100 WBC (Bld) 0.3 % 0.0-0.5 [facility] Leukocytes [#/volume] correc jorge for nucleated erythrocytes in Blood by Automated counon 07-24-2024 WBC corrected for nucl RBC Auto (Bld) [#/Vol] Leukocytes [#/volume] corrected for nucleated erythrocytes in Blood by Automated coun 4.0-11.0 [facility] Lymphocytes Auto (Bld) [#/Vo l]on 07-24-2024 Lymphocytes (Bld) [#/Vol] Lymphocytes [#/volume] in Blood by Automated count 1.2-3.8 [facility] Lymphocytes/100 WBC Auto (Bl d)on 07-24-2024 Lymphocytes/100 WBC (Bld) Lymphocytes/100 leukocytes in Blood by Automated count 20.5-60.0 [facility] MCH Auto (RBC) [Entitic mass ]on 07-24-2024 MCH (RBC) [Entitic mass] MCH [Entitic mass] by Automated count Low 25.9-34.0 [facility] MCHC Auto (RBC) [Mass/Vol]on 07-24-2024 MCHC (RBC) [Mass/Vol] MCHC [Mass/volume] by Automated count Low 29.9-35.2 [facility] MCV Auto (RBC) [Entitic vol] on 07-24-2024 MCV (RBC) [Entitic vol] MCV [Entitic volume] by Automated count Low 80.0-94.0 [facility] Monocytes Auto (Bld) [#/Vol] on 07-24-2024 Monocytes (Bld) [#/Vol] Automated blood monocyte count High 0.3-0.8 [facility] Monocytes/100 WBC Auto (Bld) on 07-24-2024 Monocytes/100 WBC (Bld) Automated monocyte % 1.7-12.0 [facility] Neutrophils Auto (Bld) [#/Vo l]on 07-24-2024 Neutrophils (Bld) [#/Vol] Neutrophils [#/volume] in Blood by Automated count 1.4-6.5 [facility] Neutrophils/100 WBC Auto (Bl d)on 07-24-2024 Neutrophils/100 WBC (Bld) Automated neutrophil % 43.0-75.0 [facility] No Panel Informationon 07-24 Eosinophils # (Auto) 0.4 10 3/uL 0.0-0.7 [facility] Immature Granulocyte # (Auto) 0.03 10 3/uL 0.00-0.03 [facility] Platelet mean volume Auto (B ld) [Entitic vol]on 07-24-2024 Platelet mean volume (Bld) [Entitic vol] Platelet mean volume [Entitic volume] in Blood by Automated count 9.5-13.5 [facility] Platelets Auto (Bld) [#/Vol] on 07-24-2024 Platelets (Bld) [#/Vol] Platelets [#/volume] in Blood by Automated count 150-450 [facility] RBC Auto (Bld) [#/Vol]on RBC (Bld) [#/Vol] Erythrocytes [#/volu me] in Blood by Automated count 4.70-6.10 [facility] Serum or plasma albumin/glob ulin mass ratioon 07-24-2024 Albumin/Globulin [Mass ratio] Serum or plasma albumin/globulin mass ratio [facility] Serum or plasma anion gap de terminationon 07-24-2024 Anion gap [Moles/Vol] Serum or plasma an ion gap determination [facility] PSA Totalon 05-28-2024 Prostate specific Ag [Mass/Vol] 1.0 ng/mL Normal 0.1-3.5 [facility] Comment on above: Result Comment: The concentration of PSA determined by different manufacturers can vary due to differences in assay methods and reagent specificity. Values obtained from different assay methods cannot be used interchangeably. The methodology used for this result was chemiluminescence using [employer] Hybrite[employer] PSA reagent. Performed By: #### 1 [id number] #### [facility] [address] [place] [address] Ambulatory Visit Summaryon 1 07-28-2023 Ambulatory Visit [...] [facility] [address], [place] [phone] Medications What How Much When Instructions Unchanged tamsulosin (tamsulosin 0.4 mg Cap) 1 Capsules By Mouth 2 times a day Pickup at [facility]/pharmacy #[id number] Unchanged albuterol (ProAir HFA) Inhalation Every 6 [...] Unchanged (more content not included)... Normal [facility] Urology Office/Clinic Noteon 05-27-2024 Urology [...] urination. -Cont Tamsulosin bid. Refills sent to [facility]. 2. Screening PSA (prostate specific antigen) (Z12.5: [...] Blum, URL [facility] [address], [facility] [place] [address] [phone] Additional Instructions: 1 yr Patient Education Benign [...] [Hypertension] SD (myocardial infarction) NIDDM Procedure/Surgical History BKA - [...] Daily me (more content not included)... Normal [facility] Comment on above: Result Comment: Elec tronically Signed By: Yeyo ROWE MD\.br\Date and Time Signed: 05/27/24 16:02 EST\.br\Electronically Co-Signed By: Sharri Mora\.br\Date and Time Co-Signed: 05/27/24 16:01 EST Glucose Glucometer (dC) [M ass/Vol]Ordered By: Mike Burleson on 04-23-2024 Glucose [Mass/Vol] Capillary blood gluc ose measurement by glucometer (mass/volume) [facility] Comment on above: Random Glucose Refer ence Range is dependent on time and content of last meal. Glucose of more than 200 mg/dL in a nonstressed, ambulatory subject supports the diagnosis of Diabetes Mellitus. Glucose Poct Glucometerson 1 06-23-2023 Commemt1 Glu2: Cleaned Meter Normal [facility] Comment on above: Result Comment: PERF ORMED BY:[facility] [place], [place] [phone] MEDICAL DIRECTORMIKE CABAN M.D. Performed By: #### G LULS ####Point of Care testing, Glucose [Mass/Vol] 212 mg/dL Normal [facility] Comment on above: Result Comment: [place] Glucose Reference Range is dependent on time and content of last meal. Glucose of more than 200 mg/dL in a nonstressed, ambulatory subject supports the diagnosis of Diabetes Mellitus. Performed By: #### G LULS ####Point of Care testing, Guy 04-23-2024 L Normal [facility] No Panel InformationOrdered By: Mike Burleson on 04-23-2024 Bedside Glucose Comment Glu2: cleaned meter [facility] HbA1c HPLC (Bld) [Mass fract ion]on 04-04-2024 HbA1c (Bld) [Mass fraction] Hemoglobin A1c/Hemoglobin.total in Blood by HPLC [facility] Alanine aminotransferase [En zymatic activity/volume] in Serum or PlasmaOrdered By: João Powell on 03-13-2024 ALT [Catalytic activity/Vol] 38 U/L Normal [facility] Comment on above: Performed By: #### C MP, PHOS, CBC, MG ####[facility] [id number] [place] [address] [facility] ALT [Catalytic activity/Vol] Alanine aminotransferase [Enzymatic activity/volume] in Serum or Plasma [facility] Albumin [Mass/volume] in Ser um or Plasma by Bromocresol green (BCG) dye binding methoOrdered By: João Powell on 03-13-2024 Albumin BCG dye [Mass/Vol] 3.6 g/dL 3.5-5.7 [facility] Albumin BCG dye [Mass/Vol] Albumin [Mass/volume] in Serum or Plasma by Bromocresol green (BCG) dye binding metho 3.5-5.7 [facility] Alkaline phosphatase [Enzyma tic activity/volume] in Serum or PlasmaOrdered By: João Powell on 03-13-2024 ALP [Catalytic activity/Vol] 313 U/L [address] Comment on above: Performed By: #### C MP, PHOS, CBC, MG ####[place] [address] ALP [Catalytic activity/Vol] Alkaline phosphatase [Enzymatic activity/volume] in Serum or Plasma [address] Aspartate aminotransferase [ Enzymatic activity/volume] in Serum or PlasmaOrdered By: João Powell on 03-13-2024 AST [Catalytic activity/Vol] 28 U/L Normal [address] [place] [address] Comment on above: Performed By: #### C MP, PHOS, CBC, MG ####[place] [address] AST [Catalytic activity/Vol] Aspartate aminotransferase [Enzymatic activity/volume] in Serum or Plasma [address] [place] [address] Automated basophil %Ordered By: João Powell on 03-13-2024 Basophils/100 WBC (Bld) 1.2 % Normal . [facility] Comment on above: Performed By: #### C MP, PHOS, CBC, MG ####[place] [address] Automated basophil countOrde red By: João Powell on 03-13-2024 Basophils (Bld) [#/Vol] 0.1 10*3/uL Normal 0.0-0.2 [facility] Comment on above: Result Comment: PERF ORMED BY:[address] [place], [place] [phone] MEDICAL DIRECTORCLIFFORD LOBATO M.D. Performed By: #### C MP, PHOS, CBC, MG ####[place] [address] Automated blood monocyte cou ntOrdered By: João Powell on 03-13-2024 Monocytes (Bld) [#/Vol] 0.9 10*3/uL High 0.0-0.8 [facility] Comment on above: Performed By: #### C MP, PHOS, CBC, MG ####[address] Automated eosinophil %Ordere d By: João Powell on 03-13-2024 Eosinophils/100 WBC (Bld) 3.0 % Normal . [facility] Comment on above: Performed By: #### C MP, PHOS, CBC, MG ####[address] Automated eosinophil countOr dered By: João Powell on 03-13-2024 Eosinophils (Bld) [#/Vol] 0.2 10*3/uL Normal 0.0-0.45 [facility] Comment on above: Performed By: #### C MP, PHOS, CBC, MG ####[address] Automated monocyte %Ordered By: João Powell on 03-13-2024 Monocytes/100 WBC (Bld) 14.4 % Normal . [facility] Comment on above: Performed By: #### C MP, PHOS, CBC, MG ####[address] Automated neutrophil %Ordere d By: João Powell on 03-13-2024 Neutrophils/100 WBC (Bld) 66.7 % Normal . [facility] Comment on above: Performed By: #### C MP, PHOS, CBC, MG ####[address] Basophils Auto (Bld) [#/Vol] Ordered By: João Powell on 03-13-2024 Basophils (Bld) [#/Vol] Automated basophil count 0.0-0.2 [facility] Basophils/100 WBC Auto (Bld) Ordered By: João Powell on 03-13-2024 Basophils/100 WBC (Bld) Automated basophil % . [facility] Bilirubin.total [Mass/volume ] in Serum or PlasmaOrdered By: João Powell on 03-13-2024 Bilirubin [Mass/Vol] 0.9 mg/dL Normal 0.3-1.0 [facility] Comment on above: Performed By: #### C MP, PHOS, CBC, MG ####[facility] [place] [address] [facility] Bilirubin [Mass/Vol] Bilirubin.total [Mass/volume] in Serum or Plasma 0.3-1.0 [facility] Calcium [Mass/volume] in Ser um or PlasmaOrdered By: João Powell on 03-13-2024 Calcium [Mass/Vol] 9.1 mg/dL Normal 8.6-10.[address] [facility] Comment on above: Performed By: #### C MP, PHOS, CBC, MG ####[facility] [place] [address] [facility] Calcium [Mass/Vol] Calcium [Mass/volume ] in Serum or Plasma 8.6-10.3 [facility] Capillary blood glucose ashley urement by glucometer (mass/volume)Ordered By: Remberto Ervin on 03-13-2024 Glucose [Mass/Vol] 155 mg/dL Normal [facility] Comment on above: Random Glucose Refer ence Range is dependent on time and content of last meal. Glucose of more than 200 mg/dL in a nonstressed, ambulatory subject supports the diagnosis of Diabetes Mellitus. Result Comment: [place] Glucose Reference Range is dependent on time and content of last meal. Glucose of more than 200 mg/dL in a nonstressed, ambulatory subject supports the diagnosis of Diabetes Mellitus.PERFORMED BY:[facility] [place], [place] [phone] MEDICAL DIRECTORCLIFFORD LOBATO M.D. Performed By: #### G LULS ####Point of Care testing, Carbon dioxide, total [Moles /volume] in Serum or PlasmaOrdered By: João Powell on 03-13-2024 CO2 [Moles/Vol] 23.9 mmol/L Normal 21.0-31.0 [facility] Comment on above: Performed By: #### C MP, PHOS, CBC, MG ####[place] [address] [place], [place] [address] CO2 [Moles/Vol] Carbon dioxide, tota l [Moles/volume] in Serum or Plasma 21.0-31.0 [facility] Chloride [Moles/volume] in S ilia or PlasmaOrdered By: João Powell on 03-13-2024 Chloride [Moles/Vol] 101 mmol/L Normal 98-107 [facility] Comment on above: Performed By: #### C MP, PHOS, CBC, MG ####[place] [address] Chloride [Moles/Vol] Chloride [Moles/vol ume] in Serum or Plasma 98-107 [facility] Complete Blood Count Auto Di ffon 03-13-2024 Mean Corpuscular HGB Conc 31.7 g/dL Low 32.5-35.6 [facility] Comment on above: Performed By: #### C MP, PHOS, CBC, MG ####[address] NRBC% 0.1 /100{WBC} Normal 0-0.[address] [facility] Comment on above: Performed By: #### C MP, PHOS, CBC, MG ####[address] Comprehensive Metabolic Pane guy 03-13-2024 Albumin [Mass/Vol] 3.6 g/dL Normal 3.5-5.7 [facility] Comment on above: Performed By: #### C MP, PHOS, CBC, MG ####[place] [id number] [facility] Creatinine Clr Calc Pharmacy 56.79 Normal [facility] Comment on above: Performed By: #### C MP, PHOS, CBC, MG ####[place] [id number] [facility] GFR/1.73 sq M.predicted MDRD (S/P/Bld) [Vol rate/Area] 53.205 mL/min/{1.73_m2} Normal [facility] Comment on above: Performed By: #### C MP, PHOS, CBC, MG ####[place] [address] Creatinine [Mass/volume] in Serum or PlasmaOrdered By: João Powell on 03-13-2024 Creatinine [Mass/Vol] 1.51 mg/dL High 0.70-1.30 [facility] Comment on above: Performed By: #### C MP, PHOS, CBC, MG ####[facility] [id number] Creatinine [Mass/Vol] Creatinine [Mass/v olume] in Serum or Plasma High 0.70-1.30 [facility] Eosinophils Auto (Bld) [#/Vo l]Ordered By: João Powell on 03-13-2024 Eosinophils (Bld) [#/Vol] Automated eosinophil count 0.0-0.45 [facility] Eosinophils/100 WBC Auto (Bl d)Ordered By: João Powell on 03-13-2024 Eosinophils/100 WBC (Bld) Automated eosinophil % . [facility] Erythrocyte distribution wid th Auto (RBC) [Ratio]Ordered By: João Powell on 03-13-2024 Erythrocyte distribution width (RBC) [Ratio] Erythrocyte distribution width [Ratio] by Automated count High 12.0-14.8 [facility] Erythrocyte distribution wid th [Ratio] by Automated countOrdered By: João Powell on 03-13-2024 Erythrocyte distribution width (RBC) [Ratio] 24.5 % High 12.0-14.8 [facility] Comment on above: Performed By: #### C MP, PHOS, CBC, MG ####[facility] [id number] Erythrocytes [#/volume] in B lood by Automated countOrdered By: João Powell on 03-13-2024 RBC (Bld) [#/Vol] 4.12 10*6/uL Normal 3.90-5.60 [facility] Comment on above: Performed By: #### C MP, PHOS, CBC, MG ####[facility] [id number] [place] [address] [facility] Globulin Calc (S) [Mass/Vol] Ordered By: João Powell on 03-13-2024 Globulin (S) [Mass/Vol] Serum globulin measurement by calculation (mass/volume) [facility] Glucose Glucometer (BldC) [M ass/Vol]Ordered By: Remberto Ervin on 03-13-2024 Glucose [Mass/Vol] Capillary blood gluc ose measurement by glucometer (mass/volume) [facility] Comment on above: Random Glucose Refer ence Range is dependent on time and content of last meal. Glucose of more than 200 mg/dL in a nonstressed, ambulatory subject supports the diagnosis of Diabetes Mellitus. Glucose Poct Glucometerson 1 Glucose [Mass/Vol] 162 mg/dL Normal [facility] Comment on above: Result Comment: [place] om Glucose Reference Range is dependent on time and content of last meal. Glucose of more than 200 mg/dL in a nonstressed, ambulatory subject supports the diagnosis of Diabetes Mellitus.PERFORMED BY:[facility] [place], [place] [id number] MEDICAL DIRECTORCLIFFORD LOBATO M.D. Performed By: #### G NELI ####Point of Care testing, Glucose [Mass/volume] in Ser um or PlasmaOrdered By: João Powell on 03-13-2024 Glucose [Mass/Vol] 149 mg/dL High 70-[address] [facility] Comment on above: ADA recommended refe rence rangeRandom Glucose Reference Range is dependent on time and content of last meal. Glucose of more than 200 mg/dL in a nonstressed, ambulatory subject supports the diagnosis of Diabetes Mellitus. Result Comment: [place] om Glucose Reference Range is dependent on time and content of last meal. Glucose of more than 200 mg/dL in a nonstressed, ambulatory subject supports the diagnosis of Diabetes Mellitus. ADA recommended reference range Performed By: #### C MP, PHOS, CBC, MG ####[facility] [id number] [place] [address] [facility] Glucose [Mass/Vol] Glucose [Mass/volume ] in Serum or Plasma High 70-100 [facility] Comment on above: ADA recommended refe rence rangeRandom Glucose Reference Range is dependent on time and content of last meal. Glucose of more than 200 mg/dL in a nonstressed, ambulatory subject supports the diagnosis of Diabetes Mellitus. Hematocrit Auto (Bld) [Volum e fraction]Ordered By: João Powell on 03-13-2024 Hematocrit (Bld) [Volume fraction] Hematocrit [Volume Fraction] of Blood by Automated count Low 38.8-50.0 [facility] Hematocrit [Volume Fraction] of Blood by Automated countOrdered By: João Powell on 03-13-2024 Hematocrit (Bld) [Volume fraction] 29.9 % Low 38.8-50.0 [facility] Comment on above: Performed By: #### C DOMINIK, PHOS, CBC, MG ####[facility] [id number] Hemoglobin [Mass/volume] in BloodOrdered By: João Powell on 03-13-2024 Hemoglobin (Bld) [Mass/Vol] 9.5 g/dL Low 13.0-17.0 [facility] Comment on above: Performed By: #### C MP, PHOS, CBC, MG ####[facility] [id number] Hemoglobin (Bld) [Mass/Vol] Hemoglobin [Mass/volume] in Blood Low 13.0-17.0 [facility] Leukocytes [#/volume] correc jorge for nucleated erythrocytes in Blood by Automated counOrdered By: João Powell on 03-13-2024 WBC corrected for nucl RBC Auto (Bld) [#/Vol] 6.0 10*3/uL 4.1-10.5 [facility] WBC corrected for nucl RBC Auto (Bld) [#/Vol] Leukocytes [#/volume] corrected for nucleated erythrocytes in Blood by Automated coun 4.1-10.5 [facility] Leukocytes [#/volume] in Blo od by Automated countOrdered By: João Powell on 03-13-2024 WBC (Bld) [#/Vol] 6.0 10*3/uL Normal 4.1-10.[address] [facility] Comment on above: Performed By: #### C MP, PHOS, CBC, MG ####[address] Lymphocytes Auto (Bld) [#/Vo l]Ordered By: João Powell on 03-13-2024 Lymphocytes (Bld) [#/Vol] Lymphocytes [#/volume] in Blood by Automated count Low 1.00-4.8 [facility] Lymphocytes [#/volume] in Bl ood by Automated countOrdered By: João Powell on 03-13-2024 Lymphocytes (Bld) [#/Vol] 0.9 10*3/uL Low 1.00-4.8 [facility] Comment on above: Performed By: #### C MP, PHOS, CBC, MG ####[address] Lymphocytes/100 WBC Auto (Bl d)Ordered By: João Powell on 03-13-2024 Lymphocytes/100 WBC (Bld) Lymphocytes/100 leukocytes in Blood by Automated count . [facility] Lymphocytes/100 leukocytes i n Blood by Automated countOrdered By: João Powell on 03-13-2024 Lymphocytes/100 WBC (Bld) 14.7 % Normal . [facility] Comment on above: Performed By: #### C MP, PHOS, CBC, MG ####[address] MCH Auto (RBC) [Entitic mass ]Ordered By: João Powell on 03-13-2024 MCH (RBC) [Entitic mass] MCH [Entitic mass] by Automated count Low 27.5-35.2 [facility] MCH [Entitic mass] by Automa jorge countOrdered By: João Powell on 03-13-2024 MCH (RBC) [Entitic mass] 23.0 pg Low 27.5-35.2 [facility] Comment on above: Performed By: #### C MP, PHOS, CBC, MG ####[place] [id number] [facility] MCHC Auto (RBC) [Mass/Vol]Or dered By: João Powell on 03-13-2024 MCHC (RBC) [Mass/Vol] 31.7 g/dL Low 32.5-35.6 [facility] MCHC (RBC) [Mass/Vol] MCHC [Mass/volume] by Automated count Low 32.5-35.6 [facility] MCV Auto (RBC) [Entitic vol] Ordered By: João Powell on 03-13-2024 MCV (RBC) [Entitic vol] MCV [Entitic volume] by Automated count Low 83.5-101 [facility] MCV [Entitic volume] by Auto mated countOrdered By: João Powell on 03-13-2024 MCV (RBC) [Entitic vol] 72.6 fL Low 83.5-101 [facility] Comment on above: Performed By: #### C MP, PHOS, CBC, MG ####[place] [id number] [facility] Magnesium [Mass/volume] in S ilia or PlasmaOrdered By: João Powell on 03-13-2024 Magnesium [Mass/Vol] 1.7 mg/dL Low 1.9-2.7 [facility] Comment on above: Result Comment: PERF ORMED BY:[address] [place], [place] [phone] MEDICAL DIRECTORCLIFFORD LOBATO M.D. Performed By: #### C MP, PHOS, CBC, MG ####[place] [id number] [facility] Magnesium [Mass/Vol] Magnesium [Mass/vol ume] in Serum or Plasma Low 1.9-2.7 [facility] Monocytes Auto (Bld) [#/Vol] Ordered By: João Powell on 03-13-2024 Monocytes (Bld) [#/Vol] Automated blood monocyte count High 0.0-0.8 [facility] Monocytes/100 WBC Auto (Bld) Ordered By: João Powell on 03-13-2024 Monocytes/100 WBC (Bld) Automated monocyte % . [facility] Neutrophils Auto (Bld) [#/Vo l]Ordered By: João Powell on 03-13-2024 Neutrophils (Bld) [#/Vol] Neutrophils [#/volume] in Blood by Automated count 1.8-7.7 [facility] Neutrophils [#/volume] in Bl ood by Automated countOrdered By: João Powell on 03-13-2024 Neutrophils (Bld) [#/Vol] 4.0 10*3/uL Normal 1.8-7.7 [facility] Comment on above: Performed By: #### C MP, PHOS, CBC, MG ####[facility] [id number] [place] [id number] [place] Neutrophils/100 WBC Auto (Bl d)Ordered By: João Powell on 03-13-2024 Neutrophils/100 WBC (Bld) Automated neutrophil % . [facility] No Panel InformationOrdered By: João Powell on 03-13-2024 Estimated GFR (CKD-EPI) 53.205 mL/Min [facility] Creatinine Clearance (Chem 56.79 [facility] 53.205 mL/Min [facility] 56.79 [facility] Nucleated erythrocytes [Pres ence] in Blood by Automated countOrdered By: João Powell on 03-13-2024 Nucleated RBC Auto Ql (Bld) 0.1 /100{WBC} 0-0.5 [facility] Nucleated RBC Auto Ql (Bld) Nucleated erythrocytes [Presence] in Blood by Automated count 0-0.5 [facility] Phosphate [Mass/volume] in S ilia or PlasmaOrdered By: João Powell on 03-13-2024 Phosphate [Mass/Vol] 3.0 mg/dL Normal 2.5-4.5 [facility] Comment on above: Performed By: #### C MP, PHOS, CBC, MG ####[facility] [id number] [place] [address] [facility] Phosphate [Mass/Vol] Phosphate [Mass/vol ume] in Serum or Plasma 2.5-4.5 [facility] Platelet mean volume Auto (B ld) [Entitic vol]Ordered By: João Powell on 03-13-2024 Platelet mean volume (Bld) [Entitic vol] Platelet mean volume [Entitic volume] in Blood by Automated count 6.6-10.1 [facility] Platelet mean volume [Entiti c volume] in Blood by Automated countOrdered By: João Powell on 03-13-2024 Platelet mean volume (Bld) [Entitic vol] 8.9 fL Normal 6.6-10.1 [facility] Comment on above: Performed By: #### C MP, PHOS, CBC, MG ####[place] [id number] [place] [address] [facility] Platelets Auto (Bld) [#/Vol] Ordered By: João Powell on 03-13-2024 Platelets (Bld) [#/Vol] Platelets [#/volume] in Blood by Automated count 150-450 [facility] Platelets [#/volume] in Bloo d by Automated countOrdered By: João Powell on 03-13-2024 Platelets (Bld) [#/Vol] 197 10*3/uL Normal 150-450 [facility] Comment on above: Performed By: #### C MP, PHOS, CBC, MG ####[place] [id number] [facility] Potassium [Moles/volume] in Serum or PlasmaOrdered By: João Powell on 03-13-2024 Potassium [Moles/Vol] 3.9 mmol/L Normal 3.5-5.1 [facility] Comment on above: Performed By: #### C MP, PHOS, CBC, MG ####[place] [id number] [facility] Potassium [Moles/Vol] Potassium [Moles/v olume] in Serum or Plasma 3.5-5.1 [facility] Protein [Mass/volume] in Ser um or PlasmaOrdered By: João Powell on 03-13-2024 Protein [Mass/Vol] 7.5 g/dL Normal 6.4-8.[address] [facility] Comment on above: Performed By: #### C MP, PHOS, CBC, MG ####[place] [id number] Protein [Mass/Vol] Protein [Mass/volume ] in Serum or Plasma 6.4-8.9 [facility] RBC Auto (Bld) [#/Vol]Ordere d By: João Powell on 03-13-2024 RBC (Bld) [#/Vol] Erythrocytes [#/volu me] in Blood by Automated count 3.90-5.60 [facility] Serum globulin measurement b y calculation (mass/volume)Ordered By: João Powell on 03-13-2024 Globulin (S) [Mass/Vol] 3.9 g/dL [facility] Comment on above: Performed By: #### C MP, PHOS, CBC, MG ####[place] [id number] Serum or plasma albumin/glob ulin mass ratioOrdered By: João Powell on 03-13-2024 Albumin/Globulin [Mass ratio] 0.9 {ratio} [facility] Comment on above: Performed By: #### C MP, PHOS, CBC, MG ####[address] Albumin/Globulin [Mass ratio] Serum or plasma albumin/globulin mass ratio [facility] Serum or plasma anion gap de terminationOrdered By: João Powell on 03-13-2024 Anion gap [Moles/Vol] 13.0 mmol/L Normal 6.0-15.0 [facility] Comment on above: Performed By: #### C MP, PHOS, CBC, MG ####[address] Anion gap [Moles/Vol] Serum or plasma an ion gap determination 6.0-15.0 [facility] Sodium [Moles/volume] in Ser um or PlasmaOrdered By: João Powell on 03-13-2024 Sodium [Moles/Vol] 134 mmol/L Low 136-[address] [facility] Comment on above: Performed By: #### C MP, PHOS, CBC, MG ####[place] [id number] [facility] Sodium [Moles/Vol] Sodium [Moles/volume ] in Serum or Plasma Low 136-145 [facility] Urea nitrogen [Mass/volume] in Serum or PlasmaOrdered By: João Powell on 03-13-2024 Urea nitrogen [Mass/Vol] 18 mg/dL Normal 12-27 [facility] Comment on above: Performed By: #### C MP, PHOS, CBC, MG ####[place] [id number] [facility] Urea nitrogen [Mass/Vol] Urea nitrogen [Mass/volume] in Serum or Plasma 12-27 [facility] WBC Auto (Bld) [#/Vol]Ordere d By: João Powell on 03-13-2024 WBC (Bld) [#/Vol] Leukocytes [#/volume ] in Blood by Automated count 4.1-10.5 [facility] Complete Blood Count Auto Di ffon 03-12-2024 Basophils (Bld) [#/Vol] 0.0 10*3/uL Normal 0.0-0.2 [facility] Comment on above: Result Comment: PERF ORMED BY:[address] [place], [place] [phone] MEDICAL DIRECTORCLIFFORD LOBATO M.D. Performed By: #### C BC, CMP, PHOS, MG ####[place] [id number] [place] Basophils/100 WBC (Bld) 0.8 % Normal . [facility] Comment on above: Performed By: #### C BC, CMP, PHOS, MG ####[place] [id number] [place] Eosinophils (Bld) [#/Vol] 0.1 10*3/uL Normal 0.0-0.45 [facility] Comment on above: Performed By: #### C BC, CMP, PHOS, MG ####[place] [id number] [place] Eosinophils/100 WBC (Bld) 1.7 % Normal . [facility] Comment on above: Performed By: #### C BC, CMP, PHOS, MG ####[address] Erythrocyte distribution width (RBC) [Ratio] 24.0 % High 12.0-14.8 [facility] Comment on above: Performed By: #### C BC, CMP, PHOS, MG ####[address] Hematocrit (Bld) [Volume fraction] 28.0 % Low 38.8-50.0 [facility] Comment on above: Performed By: #### C BC, CMP, PHOS, MG ####[address] Hemoglobin (Bld) [Mass/Vol] 9.0 g/dL Low 13.0-17.0 [facility] Comment on above: Performed By: #### C BC, CMP, PHOS, MG ####[address] Lymphocytes (Bld) [#/Vol] 0.7 10*3/uL Low 1.00-4.8 [facility] Comment on above: Performed By: #### C BC, CMP, PHOS, MG ####[address] Lymphocytes/100 WBC (Bld) 12.6 % Normal . [facility] Comment on above: Performed By: #### C BC, CMP, PHOS, MG ####[address] MCH (RBC) [Entitic mass] 23.1 pg Low 27.5-35.2 [facility] Comment on above: Performed By: #### C BC, CMP, PHOS, MG ####[address] MCV (RBC) [Entitic vol] 72.1 fL Low 83.5-101 [facility] Comment on above: Performed By: #### C BC, CMP, PHOS, MG ####[address] Mean Corpuscular HGB Conc 32.1 g/dL Low 32.5-35.6 [facility] Comment on above: Performed By: #### C BC, CMP, PHOS, MG ####[address] Monocytes (Bld) [#/Vol] 1.0 10*3/uL High 0.0-0.8 [facility] Comment on above: Performed By: #### C BC, CMP, PHOS, MG ####[address] Monocytes/100 WBC (Bld) 16.2 % Normal . [facility] Comment on above: Performed By: #### C BC, CMP, PHOS, MG ####[address] Neutrophils (Bld) [#/Vol] 4.0 10*3/uL Normal 1.8-7.7 [facility] Comment on above: Performed By: #### C BC, CMP, PHOS, MG ####[address] Neutrophils/100 WBC (Bld) 68.7 % Normal . [facility] Comment on above: Performed By: #### C BC, CMP, PHOS, MG ####[address] NRBC% 0.1 /100{WBC} Normal 0-0.[address] [facility] Comment on above: Performed By: #### C BC, CMP, PHOS, MG ####[address] Platelet mean volume (Bld) [Entitic vol] 8.8 fL Normal 6.6-10.1 [facility] Comment on above: Performed By: #### C BC, CMP, PHOS, MG ####[place] [address] Platelets (Bld) [#/Vol] 191 10*3/uL Normal 150-450 [facility] Comment on above: Performed By: #### C BC, CMP, PHOS, MG ####[address] RBC (Bld) [#/Vol] 3.89 10*6/uL Low 3.90-5.60 [facility] Comment on above: Performed By: #### C BC, CMP, PHOS, MG ####[address] WBC (Bld) [#/Vol] 5.9 10*3/uL Normal 4.1-10.5 [facility] Comment on above: Performed By: #### C BC, CMP, PHOS, MG ####[address] Comprehensive Metabolic Pane guy 03-12-2024 Albumin [Mass/Vol] 3.5 g/dL Normal 3.5-5.7 [facility] Comment on above: Performed By: #### C BC, CMP, PHOS, MG ####[address] Albumin/Globulin [Mass ratio] 0.9 {ratio} Normal [facility] Comment on above: Performed By: #### C BC, CMP, PHOS, MG ####[address] ALP [Catalytic activity/Vol] 328 U/L High 34-104 [facility] Comment on above: Performed By: #### C BC, CMP, PHOS, MG ####[address] ALT [Catalytic activity/Vol] 46 U/L Normal 7-52 [facility] Comment on above: Performed By: #### C BC, CMP, PHOS, MG ####[address] Anion gap [Moles/Vol] 14.2 mmol/L Normal 6.0-15.0 [facility] Comment on above: Performed By: #### C BC, CMP, PHOS, MG ####[address] AST [Catalytic activity/Vol] 34 U/L Normal 13-39 [facility] Comment on above: Performed By: #### C BC, CMP, PHOS, MG ####[address] Bilirubin [Mass/Vol] 1.0 mg/dL Normal 0.3-1.0 [facility] Comment on above: Performed By: #### C BC, CMP, PHOS, MG ####[address] Calcium [Mass/Vol] 9.1 mg/dL Normal 8.6-10.3 [facility] Comment on above: Performed By: #### C BC, CMP, PHOS, MG ####[address] Chloride [Moles/Vol] 104 mmol/L Normal 98-107 [facility] Comment on above: Performed By: #### C BC, CMP, PHOS, MG ####[address] CO2 [Moles/Vol] 21.7 mmol/L Normal 21.0-31.0 [facility] Comment on above: Performed By: #### C BC, CMP, PHOS, MG ####[address] Creatinine [Mass/Vol] 1.46 mg/dL High 0.70-1.30 [facility] Comment on above: Performed By: #### C BC, CMP, PHOS, MG ####[address] Creatinine Clr Calc Pharmacy 58.74 Normal [facility] Comment on above: Performed By: #### C BC, CMP, PHOS, MG ####[place] [id number] [facility] GFR/1.73 sq M.predicted MDRD (S/P/Bld) [Vol rate/Area] 55.398 mL/min/{1.73_m2} Normal [facility] Comment on above: Performed By: #### C BC, CMP, PHOS, MG ####[place] [id number] [facility] Globulin (S) [Mass/Vol] 3.7 g/dL Normal [facility] Comment on above: Performed By: #### C BC, CMP, PHOS, MG ####[place] [id number] [facility] Glucose [Mass/Vol] 167 mg/dL High 70-100 [facility] Comment on above: Result Comment: [facility] Glucose Reference Range is dependent on time and content of last meal. Glucose of more than 200 mg/dL in a nonstressed, ambulatory subject supports the diagnosis of Diabetes Mellitus. ADA recommended reference range Performed By: #### C BC, CMP, PHOS, MG ####[place] [id number] [facility] Potassium [Moles/Vol] 3.9 mmol/L Normal 3.5-5.1 [facility] Comment on above: Performed By: #### C BC, CMP, PHOS, MG ####[place] [id number] [facility] Protein [Mass/Vol] 7.2 g/dL Normal 6.4-8.9 [facility] Comment on above: Performed By: #### C BC, CMP, PHOS, MG ####[place] [id number] [facility] Sodium [Moles/Vol] 136 mmol/L Normal 136-145 [facility] Comment on above: Performed By: #### C BC, CMP, PHOS, MG ####[place] [id number] [facility] Urea nitrogen [Mass/Vol] 19 mg/dL Normal 7-25 [facility] Comment on above: Performed By: #### C BC, CMP, PHOS, MG ####[address] [address] [facility] Glucose Poct Glucometerson 1 Glucose [Mass/Vol] 174 mg/dL Normal [facility] Comment on above: Result Comment: [place] om Glucose Reference Range is dependent on time and content of last meal. Glucose of more than 200 mg/dL in a nonstressed, ambulatory subject supports the diagnosis of Diabetes Mellitus.PERFORMED BY:[address] [place], [place] [phone] MEDICAL DIRECTORCLIFFORD LOBATO M.D. Performed By: #### G LULS ####Point of Care testing, Glucose [Mass/Vol] 216 mg/dL Normal [facility] Comment on above: Result Comment: [place] Glucose Reference Range is dependent on time and content of last meal. Glucose of more than 200 mg/dL in a nonstressed, ambulatory subject supports the diagnosis of Diabetes Mellitus.PERFORMED BY:[address] [place], [place] [phone] MEDICAL DIRECTORCLIFFORD LOBATO M.D. Performed By: #### G LULS ####Point of Care testing, Glucose [Mass/Vol] 230 mg/dL Normal [facility] Comment on above: Result Comment: [place] Glucose Reference Range is dependent on time and content of last meal. Glucose of more than 200 mg/dL in a nonstressed, ambulatory subject supports the diagnosis of Diabetes Mellitus.PERFORMED BY:[address] [place], [place] [phone] MEDICAL BRISA LOBATO M.D. Performed By: #### G LULS ####Point of Care testing, Glucose [Mass/Vol] 179 mg/dL Normal [facility] Comment on above: Result Comment: [place] Glucose Reference Range is dependent on time and content of last meal. Glucose of more than 200 mg/dL in a nonstressed, ambulatory subject supports the diagnosis of Diabetes Mellitus.PERFORMED BY:[address] [place] [id number] MEDICAL DIRECTORCLIFFORD LOBATO M.D. Performed By: #### G NELI ####Point of Care testing, Magnesiumon 03-12-2024 Magnesium [Mass/Vol] 2.0 mg/dL Normal 1.9-2.7 [facility] Comment on above: Result Comment: PERF ORMED BY:[address] [place], [place] [id number] MEDICAL DIRECTORCLIFFORD LOBATO M.D. Performed By: #### C BC, CMP, PHOS, MG ####[address] Phosphoruson 03-12-2024 Phosphate [Mass/Vol] 2.5 mg/dL Normal 2.5-4.5 [facility] Comment on above: Performed By: #### C BC, CMP, PHOS, MG ####[address] Complete Blood Count Auto Di ffon 03-11-2024 Basophils (Bld) [#/Vol] 0.1 10*3/uL Normal 0.0-0.2 [facility] Comment on above: Result Comment: PERF ORMED BY:[address] [place], [place] [phone] MEDICAL BRISA LOBATO M.D. Performed By: #### C BC, MG, PHOS, CMP ####[address] Basophils/100 WBC (Bld) 0.6 % Normal . [facility] Comment on above: Performed By: #### C BC, MG, PHOS, CMP ####[address] Eosinophils (Bld) [#/Vol] 0.2 10*3/uL Normal 0.0-0.45 [facility] Comment on above: Performed By: #### C BC, MG, PHOS, CMP ####[place] [address] Eosinophils/100 WBC (Bld) 2.7 % Normal . [facility] Comment on above: Performed By: #### C BC, MG, PHOS, CMP ####[address] Erythrocyte distribution width (RBC) [Ratio] 24.0 % High 12.0-14.8 [facility] Comment on above: Performed By: #### C BC, MG, PHOS, CMP ####[address] Hematocrit (Bld) [Volume fraction] 27.6 % Low 38.8-50.0 [facility] Comment on above: Performed By: #### C BC, MG, PHOS, CMP ####[address] Hemoglobin (Bld) [Mass/Vol] 8.8 g/dL Low 13.0-17.0 [facility] Comment on above: Performed By: #### C BC, MG, PHOS, CMP ####[address] Lymphocytes (Bld) [#/Vol] 0.5 10*3/uL Low 1.00-4.8 [facility] Comment on above: Performed By: #### C BC, MG, PHOS, CMP ####[address] Lymphocytes/100 WBC (Bld) 5.3 % Normal . [facility] Comment on above: Performed By: #### C BC, MG, PHOS, CMP ####[address] MCH (RBC) [Entitic mass] 23.1 pg Low 27.5-35.2 [facility] Comment on above: Performed By: #### C BC, MG, PHOS, CMP ####[address] MCV (RBC) [Entitic vol] 72.1 fL Low 83.5-101 [facility] Comment on above: Performed By: #### C BC, MG, PHOS, CMP ####[address] Mean Corpuscular HGB Conc 32.0 g/dL Low 32.5-35.6 [facility] Comment on above: Performed By: #### C BC, MG, PHOS, CMP ####[address] Monocytes (Bld) [#/Vol] 0.9 10*3/uL High 0.0-0.8 [facility] Comment on above: Performed By: #### C BC, MG, PHOS, CMP ####[address] Monocytes/100 WBC (Bld) 10.5 % Normal . [facility] Comment on above: Performed By: #### C BC, MG, PHOS, CMP ####[address] Neutrophils (Bld) [#/Vol] 7.3 10*3/uL Normal 1.8-7.7 [facility] Comment on above: Performed By: #### C BC, MG, PHOS, CMP ####[address] Neutrophils/100 WBC (Bld) 80.9 % Normal . [facility] Comment on above: Performed By: #### C BC, MG, PHOS, CMP ####[address] NRBC% 0.0 /100{WBC} Normal 0-0.[address] [facility] Comment on above: Performed By: #### C BC, MG, PHOS, CMP ####[address] Platelet mean volume (Bld) [Entitic vol] 8.8 fL Normal 6.6-10.1 The [facility] Comment on above: Performed By: #### C BC, MG, PHOS, CMP ####[address] Platelets (Bld) [#/Vol] 201 10*3/uL Normal 150-450 [facility] Comment on above: Performed By: #### C BC, MG, PHOS, CMP ####[address] RBC (Bld) [#/Vol] 3.83 10*6/uL Low 3.90-5.60 [facility] Comment on above: Performed By: #### C BC, MG, PHOS, CMP ####[address] WBC (Bld) [#/Vol] 9.0 10*3/uL Normal 4.1-10.5 The [facility] Comment on above: Performed By: #### C BC, MG, PHOS, CMP ####[address] Comprehensive Metabolic Pane guy 03-11-2024 Albumin [Mass/Vol] 3.5 g/dL Normal 3.5-5.7 The [facility] Comment on above: Performed By: #### C BC, MG, PHOS, CMP ####[address] Albumin/Globulin [Mass ratio] 0.9 {ratio} Normal [facility] Comment on above: Performed By: #### C BC, MG, PHOS, CMP ####[address] ALP [Catalytic activity/Vol] 367 U/L High 34-104 [facility] Comment on above: Performed By: #### C BC, MG, PHOS, CMP ####[address] ALT [Catalytic activity/Vol] 59 U/L High 7-52 [facility] Comment on above: Performed By: #### C BC, MG, PHOS, CMP ####[address] Anion gap [Moles/Vol] 12.6 mmol/L Normal 6.0-15.0 Th e [facility] Comment on above: Performed By: #### C BC, MG, PHOS, CMP ####[place] [id number] [place] [id number] [facility] AST [Catalytic activity/Vol] 52 U/L High 13-39 [facility] Comment on above: Performed By: #### C BC, MG, PHOS, CMP ####[place] [id number] [facility] Bilirubin [Mass/Vol] 1.5 mg/dL High 0.3-1.0 [facility] Comment on above: Result Comment: Samp les from patients who have taken Naproxen have shown spurious elevation in Total Bilirubin levels. A metabolite of Naproxen, O-desmethylnaproxen, has been shown to interfere with the Jendrassik-Grof method for measuring Total Bilirubin. Performed By: #### C BC, MG, PHOS, CMP ####[address] Calcium [Mass/Vol] 8.8 mg/dL Normal 8.6-10.3 The [facility] Comment on above: Performed By: #### C BC, MG, PHOS, CMP ####[place] [id number] [facility] Chloride [Moles/Vol] 104 mmol/L Normal 98-107 [facility] Comment on above: Performed By: #### C BC, MG, PHOS, CMP ####[place] [id number] [facility] CO2 [Moles/Vol] 23.0 mmol/L Normal 21.0-31.0 The [facility] Comment on above: Performed By: #### C BC, MG, PHOS, CMP ####[place] [id number] [facility] Creatinine [Mass/Vol] 1.70 mg/dL High 0.70-1.30 [facility] Comment on above: Performed By: #### C BC, MG, PHOS, CMP ####[place] [id number] Creatinine Clr Calc Pharmacy 50.45 Normal The [facility] Comment on above: Performed By: #### C BC, MG, PHOS, CMP ####[address] GFR/1.73 sq M.predicted MDRD (S/P/Bld) [Vol rate/Area] 46.151 mL/min/{1.73_m2} Normal The [facility] Comment on above: Performed By: #### C BC, MG, PHOS, CMP ####[address] Globulin (S) [Mass/Vol] 3.7 g/dL Normal [facility] Comment on above: Performed By: #### C BC, MG, PHOS, CMP ####[address] Glucose [Mass/Vol] 150 mg/dL High 70-100 The [facility] Comment on above: Result Comment: [facility] Glucose Reference Range is dependent on time and content of last meal. Glucose of more than 200 mg/dL in a nonstressed, ambulatory subject supports the diagnosis of Diabetes Mellitus. ADA recommended reference range Performed By: #### C BC, MG, PHOS, CMP ####[address] Potassium [Moles/Vol] 3.6 mmol/L Normal 3.5-5.1 [facility] Comment on above: Performed By: #### C BC, MG, PHOS, CMP ####[address] Protein [Mass/Vol] 7.2 g/dL Normal 6.4-8.9 The [facility] Comment on above: Performed By: #### C BC, MG, PHOS, CMP ####[address] Sodium [Moles/Vol] 136 mmol/L Normal 136-145 The [facility] Comment on above: Performed By: #### C BC, MG, PHOS, CMP ####[facility] [id number] [place] [address] [facility] Urea nitrogen [Mass/Vol] 17 mg/dL Normal 7-25 [facility] Comment on above: Performed By: #### C BC, MG, PHOS, CMP ####[facility] [id number] [place] [address] [facility] Glucose Poct Glucometerson 1 Glucose [Mass/Vol] 193 mg/dL Normal The [facility] Comment on above: Result Comment: [place] om Glucose Reference Range is dependent on time and content of last meal. Glucose of more than 200 mg/dL in a nonstressed, ambulatory subject supports the diagnosis of Diabetes Mellitus.PERFORMED BY:[address] [place], [place] [phone] MEDICAL DIRECTORCLIFFORD LOBATO M.D. Performed By: #### G LULS ####Point of Care testing, Commemt1 Glu2: Cleaned Meter Normal The [facility] Comment on above: Result Comment: PERF ORMED BY:[address] [place], [place] [phone] MEDICAL DIRECTORCLIFFORD LOBATO M.D. Performed By: #### G LULS ####Point of Care testing, Glucose [Mass/Vol] 156 mg/dL Normal The [facility] Comment on above: Result Comment: [place] om Glucose Reference Range is dependent on time and content of last meal. Glucose of more than 200 mg/dL in a nonstressed, ambulatory subject supports the diagnosis of Diabetes Mellitus. Performed By: #### G LULS ####Point of Care testing, Commemt1 Glu2: Cleaned Meter Normal [facility] Comment on above: Result Comment: PERF ORMED BY:[address] [place], [place] [phone] MEDICAL DIRECTORCLIFFORD LOBATO M.D. Performed By: #### G LULS ####Point of Care testing, Glucose [Mass/Vol] 185 mg/dL Normal The [facility] Comment on above: Result Comment: [place] om Glucose Reference Range is dependent on time and content of last meal. Glucose of more than 200 mg/dL in a nonstressed, ambulatory subject supports the diagnosis of Diabetes Mellitus. Performed By: #### G LULS ####Point of Care testing, Glucose [Mass/Vol] 178 mg/dL Normal The [facility] Comment on above: Result Comment: [place] om Glucose Reference Range is dependent on time and content of last meal. Glucose of more than 200 mg/dL in a nonstressed, ambulatory subject supports the diagnosis of Diabetes Mellitus.PERFORMED BY:[address] [place], [place] [phone] MEDICAL DIRECTORCLIFFORD LOBATO M.D. Performed By: #### G LULS ####Point of Care testing, Hep C Ab wRfx to Qnt PCRon 1 Hepatitis C Virus Antibody Non-Reactive Normal Non Reactive [facility] Comment on above: Performed By: #### H CV RX PCR ####[facility] , Interpretation Hepatitis C Comment Normal . [facility] Comment on above: Result Comment: Not infected with HCV unless early or acute infection is suspected (which may be delayed in an immunocompromised individual), or other evidence exists to indicate HCV infection. Performed at: [facility] [id number] Range Aide: Uriel Borrero PhD, Phone: [phone] BY:[place] [address] [address] [place], [place] [phone] MEDICAL DIRECTORCLIFFORD LOBATO M.D. Performed By: #### H CV RX PCR ####[facility] , Hepatitis C virus IgG Ab [Pr esence] in Serum or Plasma by ImmunoassayOrdered By: Mike Burleson on 03-11-2024 HCV IgG IA Ql Non-Reactive Non Reactive [facility] HCV IgG IA Ql Hepatitis C virus Ig G Ab [Presence] in Serum or Plasma by Immunoassay Non Reactive [facility] MR abdomen wo/w conon 2023 MR abdomen wo/w con Normal [facility] Magnesiumon 03-11-2024 Magnesium [Mass/Vol] 1.8 mg/dL Low 1.9-2.7 The [facility] Comment on above: Result Comment: PERF ORMED BY:[place] [address] [address] [place], [place] [phone] MEDICAL DIRECTORCLIFFORD LOBATO M.D. Performed By: #### C BC, MG, PHOS, CMP ####[place] [id number] [place] [phone] [facility] No Panel InformationOrdered By: João Powell on 03-11-2024 Bedside Glucose Comment Glu2: cleaned meter [facility] Glu2: cleaned meter [facility] No Panel InformationOrdered By: Mike Burleson on 03-11-2024 Hepatitis C Interpretation Comment . [facility] Comment on above: Not infected with HC V unless early or acute infection issuspected (which may be delayed in an immunocompromisedindividual), or other evidence exists to indicate HCVinfection.Performed at: [employer] [facility] [address] Director: Uriel Borrero PhD, Phone: [phone] Comment . [facility] Phosphoruson 03-11-2024 Phosphate [Mass/Vol] 3.4 mg/dL Normal 2.5-4.5 [facility] Comment on above: Performed By: #### C BC, MG, PHOS, CMP ####[place] [id number] [place] [phone] [facility] US liveron 03-11-2024 US liver Normal [facility] Complete Blood Count Auto Di ffon 03-10-2024 Basophils (Bld) [#/Vol] 0.0 10*3/uL Normal 0.0-0.2 [facility] Comment on above: Result Comment: PERF ORMED BY:[place] [address] [place], [place] [phone] MEDICAL DIRECTORCLIFFORD LOBATO M.D. Performed By: #### C MP, MG, PHOS, GGT, CBC ####[address] Basophils/100 WBC (Bld) 0.3 % Normal . [facility] Comment on above: Performed By: #### C MP, MG, PHOS, GGT, CBC ####[address] Eosinophils (Bld) [#/Vol] 0.1 10*3/uL Normal 0.0-0.45 [facility] Comment on above: Performed By: #### C MP, MG, PHOS, GGT, CBC ####[address] Eosinophils/100 WBC (Bld) 0.8 % Normal . [facility] Comment on above: Performed By: #### C MP, MG, PHOS, GGT, CBC ####[address] Erythrocyte distribution width (RBC) [Ratio] 23.4 % High 12.0-14.8 [facility] Comment on above: Performed By: #### C MP, MG, PHOS, GGT, CBC ####[address] Hematocrit (Bld) [Volume fraction] 25.8 % Low 38.8-50.0 [facility] Comment on above: Performed By: #### C MP, MG, PHOS, GGT, CBC ####[address] Hemoglobin (Bld) [Mass/Vol] 8.4 g/dL Low 13.0-17.0 [facility] Comment on above: Performed By: #### C MP, MG, PHOS, GGT, CBC ####[address] Lymphocytes (Bld) [#/Vol] 0.7 10*3/uL Low 1.00-4.8 [facility] Comment on above: Performed By: #### C MP, MG, PHOS, GGT, CBC ####[address] Lymphocytes/100 WBC (Bld) 4.9 % Normal . [facility] Comment on above: Performed By: #### C MP, MG, PHOS, GGT, CBC ####[address] MCH (RBC) [Entitic mass] 23.1 pg Low 27.5-35.2 [facility] Comment on above: Performed By: #### C MP, MG, PHOS, GGT, CBC ####[address] MCV (RBC) [Entitic vol] 71.2 fL Low 83.5-101 [facility] Comment on above: Performed By: #### C MP, MG, PHOS, GGT, CBC ####[address] Mean Corpuscular HGB Conc 32.5 g/dL Normal 32.5-35.6 [facility] Comment on above: Performed By: #### C MP, MG, PHOS, GGT, CBC ####[address] Monocytes (Bld) [#/Vol] 1.5 10*3/uL High 0.0-0.8 [facility] Comment on above: Performed By: #### C MP, MG, PHOS, GGT, CBC ####[address] Monocytes/100 WBC (Bld) 10.6 % Normal . [facility] Comment on above: Performed By: #### C MP, MG, PHOS, GGT, CBC ####[address] Neutrophils (Bld) [#/Vol] 11.4 10*3/uL High 1.8-7.7 [facility] Comment on above: Performed By: #### C MP, MG, PHOS, GGT, CBC ####[address] Neutrophils/100 WBC (Bld) 83.4 % Normal . [facility] Comment on above: Performed By: #### C MP, MG, PHOS, GGT, CBC ####[address] NRBC% 0.2 /100{WBC} Normal 0-0.[address] [facility] Comment on above: Performed By: #### C MP, MG, PHOS, GGT, CBC ####[address] Platelet mean volume (Bld) [Entitic vol] 8.9 fL Normal 6.6-10.1 [facility] Comment on above: Performed By: #### C MP, MG, PHOS, GGT, CBC ####[address] Platelets (Bld) [#/Vol] 205 10*3/uL Normal 150-450 [facility] Comment on above: Performed By: #### C MP, MG, PHOS, GGT, CBC ####[address] RBC (Bld) [#/Vol] 3.62 10*6/uL Low 3.90-5.60 [facility] Comment on above: Performed By: #### C MP, MG, PHOS, GGT, CBC ####[address] WBC (Bld) [#/Vol] 13.7 10*3/uL High 4.1-10.5 [facility] Comment on above: Performed By: #### C MP, MG, PHOS, GGT, CBC ####[address] Comprehensive Metabolic Pane guy 03-10-2024 Albumin [Mass/Vol] 3.4 g/dL Low 3.5-5.7 [facility] Comment on above: Performed By: #### C MP, MG, PHOS, GGT, CBC ####[address] [place] [address] [place] Albumin/Globulin [Mass ratio] 1.0 {ratio} Normal [facility] Comment on above: Performed By: #### C MP, MG, PHOS, GGT, CBC ####[address] ALP [Catalytic activity/Vol] 426 U/L High 34-104 [facility] Comment on above: Performed By: #### C MP, MG, PHOS, GGT, CBC ####[address] ALT [Catalytic activity/Vol] 78 U/L High 7-52 [facility] Comment on above: Performed By: #### C MP, MG, PHOS, GGT, CBC ####[address] Anion gap [Moles/Vol] 14.5 mmol/L Normal 6.0-15.0 [facility] Comment on above: Performed By: #### C MP, MG, PHOS, GGT, CBC ####[address] AST [Catalytic activity/Vol] 92 U/L High 13-39 [facility] Comment on above: Performed By: #### C MP, MG, PHOS, GGT, CBC ####[address] Bilirubin [Mass/Vol] 2.2 mg/dL High 0.3-1.0 [facility] Comment on above: Result Comment: Samp les from patients who have taken Naproxen have shown spurious elevation in Total Bilirubin levels. A metabolite of Naproxen, O-desmethylnaproxen, has been shown to interfere with the Jengeovanniik-Aleksandra method for measuring Total Bilirubin. Performed By: #### C MP, MG, PHOS, GGT, CBC ####[address] Calcium [Mass/Vol] 8.3 mg/dL Low 8.6-10.3 [facility] Comment on above: Performed By: #### C MP, MG, PHOS, GGT, CBC ####[address] Chloride [Moles/Vol] 102 mmol/L Normal 98-107 [facility] Comment on above: Performed By: #### C MP, MG, PHOS, GGT, CBC ####[address] CO2 [Moles/Vol] 21.8 mmol/L Normal 21.0-31.0 [facility] Comment on above: Performed By: #### C MP, MG, PHOS, GGT, CBC ####[address] Creatinine [Mass/Vol] 1.81 mg/dL High 0.70-1.30 [facility] Comment on above: Performed By: #### C MP, MG, PHOS, GGT, CBC ####[address] Creatinine Clr Calc Pharmacy 47.38 Normal [facility] Comment on above: Performed By: #### C MP, MG, PHOS, GGT, CBC ####[address] GFR/1.73 sq M.predicted MDRD (S/P/Bld) [Vol rate/Area] 42.806 mL/min/{1.73_m2} Normal [facility] Comment on above: Performed By: #### C MP, MG, PHOS, GGT, CBC ####[address] Globulin (S) [Mass/Vol] 3.3 g/dL Normal [facility] Comment on above: Performed By: #### C MP, MG, PHOS, GGT, CBC ####[address] Glucose [Mass/Vol] 141 mg/dL High 70-100 [facility] Comment on above: Result Comment: [facility] Glucose Reference Range is dependent on time and content of last meal. Glucose of more than 200 mg/dL in a nonstressed, ambulatory subject supports the diagnosis of Diabetes Mellitus. ADA recommended reference range Performed By: #### C MP, MG, PHOS, GGT, CBC ####[address] Potassium [Moles/Vol] 3.3 mmol/L Low 3.5-5.1 [facility] Comment on above: Performed By: #### C MP, MG, PHOS, GGT, CBC ####[place] [id number] [facility] Protein [Mass/Vol] 6.7 g/dL Normal 6.4-8.9 [facility] Comment on above: Performed By: #### C MP, MG, PHOS, GGT, CBC ####[address] Sodium [Moles/Vol] 135 mmol/L Significant change down 136-145 [facility] Comment on above: Performed By: #### C MP, MG, PHOS, GGT, CBC ####[address] Urea nitrogen [Mass/Vol] 16 mg/dL Normal 7-25 [facility] Comment on above: Performed By: #### C MP, MG, PHOS, GGT, CBC ####[place] [id number] [facility] Gamma Glutamyl Transpeptidas keyla 03-10-2024 Amylase [Catalytic activity/Vol] 176 U/L High [facility] Comment on above: Result Comment: PERF ORMED BY:[address] [place], [place] [phone] MEDICAL DIRECTORCLIFFORD LOBATO M.D. Performed By: #### C MP, MG, PHOS, GGT, CBC ####[place] [phone] [facility] Gamma glutamyl transferase [ Enzymatic activity/volume] in Serum or PlasmaOrdered By: João Powell on 03-10-2024 Gamma glutamyl transferase [Catalytic activity/Vol] 176 U/L High [facility] Gamma glutamyl transferase [Catalytic activity/Vol] Gamma glutamyl transferase [Enzymatic activity/volume] in Serum or Plasma [address] Glucose Poct Glucometerson 1 Commemt1 Glu2: Cleaned Meter Normal [facility] Comment on above: Result Comment: PERF ORMED BY:[place] [address] MUKULDarrianMaryCHALINOVALLEY [place], [place] [phone] MEDICAL DIRECTORCLIFFORD LOBATO M.D. Performed By: #### G LULS ####Point of Care testing, Glucose [Mass/Vol] 133 mg/dL Normal [facility] Comment on above: Result Comment: [place] om Glucose Reference Range is dependent on time and content of last meal. Glucose of more than 200 mg/dL in a nonstressed, ambulatory subject supports the diagnosis of Diabetes Mellitus. Performed By: #### G LULS ####Point of Care testing, Commemt1 Glu2: Cleaned Meter Normal [facility] Comment on above: Result Comment: PERF ORMED BY:[place] [address] [place], [place] [phone] MEDICAL DIRECTORCLIFFORD LOBATO M.D. Performed By: #### G LULS ####Point of Care testing, Glucose [Mass/Vol] 294 mg/dL Normal [facility] Comment on above: Result Comment: [place] om Glucose Reference Range is dependent on time and content of last meal. Glucose of more than 200 mg/dL in a nonstressed, ambulatory subject supports the diagnosis of Diabetes Mellitus. Performed By: #### G LULS ####Point of Care testing, Glucose [Mass/Vol] 352 mg/dL Normal [facility] Comment on above: Result Comment: [place] om Glucose Reference Range is dependent on time and content of last meal. Glucose of more than 200 mg/dL in a nonstressed, ambulatory subject supports the diagnosis of Diabetes Mellitus.PERFORMED BY:[place] [address] [place], [place] [phone] MEDICAL DIRECTORCLIFFORD LOBATO M.D. Performed By: #### G LULS ####Point of Care testing, Glucose [Mass/Vol] 174 mg/dL Normal [facility] Comment on above: Result Comment: [facility] Glucose Reference Range is dependent on time and content of last meal. Glucose of more than 200 mg/dL in a nonstressed, ambulatory subject supports the diagnosis of Diabetes Mellitus.PERFORMED BY:[place] [address] [place], [place] [phone] MEDICAL DIRECTORCLIFFORD LOBATO M.D. Performed By: #### G LULS ####Point of Care testing, Magnesiumon 03-10-2024 Magnesium [Mass/Vol] 1.4 mg/dL Low 1.9-2.7 [facility] Comment on above: Result Comment: PERF ORMED BY:[place] [address] [place], [place] [phone] MEDICAL DIRECTORCLIFFORD LOBATO M.D. Performed By: #### C MP, MG, PHOS, GGT, CBC ####[facility] [id number] [place] [address] [facility] Q-vsgypp-I-Aspartate IgG, Se gladis 03-10-2024 Y-qotkmk-DVhljmlcjv IgG, Serum Negative Normal Negative [facility] Comment on above: Result Comment: This test was developed and its performance characteristics determined by [facility]. It has not been cleared or approved by the Food and Drug Administration. The NIH-sponsored ExTINGUISH Trial (activity and safety of Inebilizumab in anti-NMDAR encephalitis) is actively recruiting patients. You may consider enrolling your patient in the clinical trial if the result of this test is positive. To learn more, or to refer your patient, call 314- [phone] ([phone], study hotline) or see ClinicalTrials.gov (study ID, [id number]). Performed at: [address] [id number] Range Aide: Chrissy Wong MD, Phone: [phone] BY:[place] [address] ROJASItzelCHALINOVALLEY [place], [place] [phone] MEDICAL DIRECTORCLIFFORD LOBATO M.D. Performed By: #### N MDA IGG SERUM ####[facility] , No Panel InformationOrdered By: Job James on 03-10-2024 I-Rdacjy-B-Aspartate Recept IgG Ab Negative Negative [facility] Comment on above: This test was develo ped and its performance characteristicsdetermined by [facility]. It has not been cleared orapproved by the Food and Drug Administration.The [facility]-sponsored ExTINGUISH Trial (activity and safety ofInebilizumab in anti-NMDAR encephalitis) is activelyrecruiting patients. You may consider enrolling yourpatient in the clinical trial if the result of this test ispositive. To learn more, or to refer your patient, call [phone] ([phone], study hotline) or seeinicalTrials.gov (study ID, [id number]).Performed at: [address] [id number] Director: Chrissy Wong MD, Phone: [phone] Negative Negative [facility] Phosphoruson 03-10-2024 Phosphate [Mass/Vol] 3.1 mg/dL Normal 2.5-4.5 [facility] Comment on above: Performed By: #### C MP, MG, PHOS, GGT, CBC ####[facility] [place] [id number] [facility] Complete Blood Count Auto Di ffon 03-09-2024 Basophils (Bld) [#/Vol] 0.1 10*3/uL Normal 0.0-0.2 [facility] Comment on above: Result Comment: PERF ORMED BY:[address] [place], [place] [phone] MEDICAL DIRECTORCLIFFORD LOBATO M.D. Performed By: #### C BC, CMP, MG, PHOS ####[facility] [id number] [id number] [facility] Basophils/100 WBC (Bld) 1.2 % Normal . [facility] Comment on above: Performed By: #### C BC, CMP, MG, PHOS ####[address] Eosinophils (Bld) [#/Vol] 0.2 10*3/uL Normal 0.0-0.45 [facility] Comment on above: Performed By: #### C BC, CMP, MG, PHOS ####[address] Eosinophils/100 WBC (Bld) 2.5 % Normal . [facility] Comment on above: Performed By: #### C BC, CMP, MG, PHOS ####[address] Erythrocyte distribution width (RBC) [Ratio] 21.9 % High 12.0-14.8 [facility] Comment on above: Performed By: #### C BC, CMP, MG, PHOS ####[address] Hematocrit (Bld) [Volume fraction] 27.8 % Low 38.8-50.0 [facility] Comment on above: Performed By: #### C BC, CMP, MG, PHOS ####[address] Hemoglobin (Bld) [Mass/Vol] 8.9 g/dL Low 13.0-17.0 [facility] Comment on above: Performed By: #### C BC, CMP, MG, PHOS ####[address] Lymphocytes (Bld) [#/Vol] 1.8 10*3/uL Normal 1.00-4.8 [facility] Comment on above: Performed By: #### C BC, CMP, MG, PHOS ####[address] Lymphocytes/100 WBC (Bld) 20.9 % Normal . [facility] Comment on above: Performed By: #### C BC, CMP, MG, PHOS ####[address] MCH (RBC) [Entitic mass] 22.7 pg Low 27.5-35.2 [facility] Comment on above: Performed By: #### C BC, CMP, MG, PHOS ####[address] MCV (RBC) [Entitic vol] 70.7 fL Low 83.5-101 [facility] Comment on above: Performed By: #### C BC, CMP, MG, PHOS ####[address] Mean Corpuscular HGB Conc 32.1 g/dL Low 32.5-35.6 [facility] Comment on above: Performed By: #### C BC, CMP, MG, PHOS ####[address] Monocytes (Bld) [#/Vol] 1.0 10*3/uL High 0.0-0.8 [facility] Comment on above: Performed By: #### C BC, CMP, MG, PHOS ####[address] Monocytes/100 WBC (Bld) 10.9 % Normal . [facility] Comment on above: Performed By: #### C BC, CMP, MG, PHOS ####[address] Neutrophils (Bld) [#/Vol] 5.6 10*3/uL Normal 1.8-7.7 [facility] Comment on above: Performed By: #### C BC, CMP, MG, PHOS ####[address] Neutrophils/100 WBC (Bld) 64.5 % Normal . [facility] Comment on above: Performed By: #### C BC, CMP, MG, PHOS ####[address] NRBC% 0.2 /100{WBC} Normal 0-0.[address] [facility] Comment on above: Performed By: #### C BC, CMP, MG, PHOS ####[place] [id number] [facility] Platelet mean volume (Bld) [Entitic vol] 8.7 fL Normal 6.6-10.1 The [facility] Comment on above: Performed By: #### C BC, CMP, MG, PHOS ####[place] [id number] [facility] Platelets (Bld) [#/Vol] 265 10*3/uL Normal 150-450 [facility] Comment on above: Performed By: #### C BC, CMP, MG, PHOS ####[address] RBC (Bld) [#/Vol] 3.93 10*6/uL Normal 3.90-5.60 [facility] Comment on above: Performed By: #### C BC, CMP, MG, PHOS ####[address] WBC (Bld) [#/Vol] 8.8 10*3/uL Normal 4.1-10.5 [facility] Comment on above: Performed By: #### C BC, CMP, MG, PHOS ####[address] Comprehensive Metabolic Pane guy 03-09-2024 Albumin [Mass/Vol] 3.5 g/dL Normal 3.5-5.7 [facility] Comment on above: Performed By: #### C BC, CMP, MG, PHOS ####[address] Albumin/Globulin [Mass ratio] 1.0 {ratio} Normal [facility] Comment on above: Performed By: #### C BC, CMP, MG, PHOS ####[address] ALP [Catalytic activity/Vol] 110 U/L High 34-104 [facility] Comment on above: Performed By: #### C BC, CMP, MG, PHOS ####[place] [address] [place] [phone] [facility] ALT [Catalytic activity/Vol] 10 U/L Normal 7-52 [facility] Comment on above: Performed By: #### C BC, CMP, MG, PHOS ####[address] Anion gap [Moles/Vol] 14.9 mmol/L Normal 6.0-15.0 Th e [facility] Comment on above: Performed By: #### C BC, CMP, MG, PHOS ####[place] [id number] [facility] AST [Catalytic activity/Vol] 14 U/L Normal 13-39 [facility] Comment on above: Performed By: #### C BC, CMP, MG, PHOS ####[address] Bilirubin [Mass/Vol] 0.5 mg/dL Normal 0.3-1.0 [facility] Comment on above: Performed By: #### C BC, CMP, MG, PHOS ####[address] Calcium [Mass/Vol] 9.0 mg/dL Normal 8.6-10.3 [facility] Comment on above: Performed By: #### C BC, CMP, MG, PHOS ####[address] Chloride [Moles/Vol] 110 mmol/L High 98-107 [facility] Comment on above: Performed By: #### C BC, CMP, MG, PHOS ####[place] [id number] [facility] CO2 [Moles/Vol] 20.8 mmol/L Low 21.0-31.0 The [facility] Comment on above: Performed By: #### C BC, CMP, MG, PHOS ####[address] Creatinine [Mass/Vol] 1.80 mg/dL High 0.70-1.30 [facility] Comment on above: Performed By: #### C BC, CMP, MG, PHOS ####[address] Creatinine Clr Calc Pharmacy 47.64 Normal [facility] Comment on above: Performed By: #### C BC, CMP, MG, PHOS ####[address] GFR/1.73 sq M.predicted MDRD (S/P/Bld) [Vol rate/Area] 43.092 mL/min/{1.73_m2} Normal The [facility] Comment on above: Performed By: #### C BC, CMP, MG, PHOS ####[address] Globulin (S) [Mass/Vol] 3.5 g/dL Normal [facility] Comment on above: Performed By: #### C BC, CMP, MG, PHOS ####[address] Glucose [Mass/Vol] 91 mg/dL Normal 70-100 [facility] Comment on above: Result Comment: [facility] Glucose Reference Range is dependent on time and content of last meal. Glucose of more than 200 mg/dL in a nonstressed, ambulatory subject supports the diagnosis of Diabetes Mellitus. ADA recommended reference range Performed By: #### C BC, CMP, MG, PHOS ####[address] Potassium [Moles/Vol] 3.7 mmol/L Normal 3.5-5.1 [facility] Comment on above: Performed By: #### C BC, CMP, MG, PHOS ####[address] Protein [Mass/Vol] 7.0 g/dL Normal 6.4-8.9 [facility] Comment on above: Performed By: #### C BC, CMP, MG, PHOS ####[place] [phone] [facility] Sodium [Moles/Vol] 142 mmol/L Normal 136-145 [facility] Comment on above: Performed By: #### C BC, CMP, MG, PHOS ####[facility] [id number] [place] [address] [facility] Urea nitrogen [Mass/Vol] 19 mg/dL Normal 7-25 [facility] Comment on above: Performed By: #### C BC, CMP, MG, PHOS ####[facility] [id number] [place] [address] [facility] Glucose Poct Glucometerson 1 Glucose [Mass/Vol] 386 mg/dL Normal The [facility] Comment on above: Result Comment: [place] om Glucose Reference Range is dependent on time and content of last meal. Glucose of more than 200 mg/dL in a nonstressed, ambulatory subject supports the diagnosis of Diabetes Mellitus.PERFORMED BY:[address] [place], [place] [phone] MEDICAL DIRECTORCLIFFORD LOBATO M.D. Performed By: #### G LULS ####Point of Care testing, Commemt1 Glu2: Cleaned Meter Normal [facility] Comment on above: Result Comment: PERF ORMED BY:[address] [place], [place] [phone] MEDICAL DIRECTORCLIFFORD LOBATO M.D. Performed By: #### G LULS ####Point of Care testing, Glucose [Mass/Vol] 128 mg/dL Normal [facility] Comment on above: Result Comment: [place] om Glucose Reference Range is dependent on time and content of last meal. Glucose of more than 200 mg/dL in a nonstressed, ambulatory subject supports the diagnosis of Diabetes Mellitus. Performed By: #### G LULS ####Point of Care testing, Glucose [Mass/Vol] 119 mg/dL Normal [facility] Comment on above: Result Comment: [place] om Glucose Reference Range is dependent on time and content of last meal. Glucose of more than 200 mg/dL in a nonstressed, ambulatory subject supports the diagnosis of Diabetes Mellitus.PERFORMED BY:[place] [address] [place], [place] [id number] MEDICAL DIRECTORCLIFFORD LOBATO M.D. Performed By: #### G LULS ####Point of Care testing, Magnesiumon 03-09-2024 Magnesium [Mass/Vol] 1.5 mg/dL Low 1.9-2.7 [facility] Comment on above: Result Comment: PERF ORMED BY:[place] [address] [place], [place] [phone] MEDICAL DIRECTORCLIFFORD LOBATO M.D. Performed By: #### C BC, CMP, MG, PHOS ####[place] [address] [place] [phone] [facility] Phosphoruson 03-09-2024 Phosphate [Mass/Vol] 3.1 mg/dL Normal 2.5-4.5 [facility] Comment on above: Performed By: #### C BC, CMP, MG, PHOS ####[place] [phone] [facility] US renal BIon 03-09-2024 US renal BI Normal [facility] XR elbow LT 2Von 03-09-2024 XR elbow LT 2V Normal [facility] Activated partial thrombopla stin time (aPTT) in platelet poor plasma by coagulation aOrdered By: Bonilla Rubin on 03-08-2024 aPTT Coag (PPP) [Time] 29.6 s 25.1-36.5 [facility] Comment on above: A hematocrit value g reater than 55% may lead to inaccurate results in coagulation testing. Patients having hematocrit values >55% require a special collection tube for coagulation studies. Please contact the laboratory at [phone] for redraw instructions. Alanine aminotransferase [En zymatic activity/volume] in Serum or PlasmaOrdered By: Bonilla Rubin on 03-08-2024 ALT [Catalytic activity/Vol] 13 U/L Normal 7-52 [facility] Comment on above: Performed By: #### P TT, HS TROP, PT, CMP, CK, CBC ####[place] [address] [place] [address] [facility] Albumin [Mass/volume] in Ser um or Plasma by Bromocresol green (BCG) dye binding methoOrdered By: Bonilla Rubin on 03-08-2024 Albumin BCG dye [Mass/Vol] 3.8 g/dL 3.5-5.7 [facility] Alkaline phosphatase [Enzyma tic activity/volume] in Serum or PlasmaOrdered By: Bonilla Rubin on 03-08-2024 ALP [Catalytic activity/Vol] 116 U/L High 34-104 [facility] Comment on above: Performed By: #### P TT, HS TROP, PT, CMP, CK, CBC ####[place] [address] [place] [address] [facility] Ammonia [Moles/volume] in Pl asmaOrdered By: João Powell on 03-08-2024 Ammonia (P) [Moles/Vol] 33 umol/L Normal [facility] Comment on above: Result Comment: PERF ORMED BY:[address] [place], [place] [phone] MEDICAL DIRECTORCLIFFORD LOBATO M.D. Performed By: #### A MM ####[address] [address] [facility] Ammonia (P) [Moles/Vol] Ammonia [Moles/volume] in Plasma [facility] Amphetamine Screen Ql (U)Ord ered By: Bonilla Rubin on 03-08-2024 Amphetamines Ql (U) Amphetamines screen Negativ e [facility] Amphetamines Ql (U) Negative Negative [facility] Appearance of UrineOrdered B y: Bonilla Rubin on 03-08-2024 Appearance (U) Urine appearance Clear [facility] Arterial Blood Gason 024 ABG Base Excess -1.4 mmol/L Normal -3.0-3.0 [facility] Comment on above: Performed By: #### A BG ####Point of Care testing, ABG Frac Inspired O2 21 % Normal [facility] Comment on above: Performed By: #### A BG ####Point of Care testing, ABG Oxygen Content 6.4 mmol/L Low 6.6-9.7 [facility] Comment on above: Performed By: #### A BG ####Point of Care testing, ABG Oxygen Saturation 97.1 % Normal 95.0-100.0 [facility] Comment on above: Performed By: #### A BG ####Point of Care testing, ABG PCO2 33.3 mm[Hg] Low 35.0-45.0 [facility] Comment on above: Performed By: #### A BG ####Point of Care testing, ABG PH 7.44 Normal 7.35-7.45 [facility] Comment on above: Performed By: #### A BG ####Point of Care testing, ABG PO2 92.6 mm[Hg] Normal 80.0-100.0 [facility] Comment on above: Performed By: #### A BG ####Point of Care testing, Respiratory Critical Normal [facility] Comment on above: Result Comment: Crit ical Value called on: 03/08/2024 at 15:16PERFORMED BY:[place] [address] [place], [place] [phone] MEDICAL DIRECTORCLIFFORD LOBATO M.D. Performed By: #### A BG ####Point of Care testing, VBG Draw Site Left Radial Normal [facility] Comment on above: Performed By: #### A BG ####Point of Care testing, Arterial Blood GasOrdered By : Bonilla Rubin on 03-08-2024 CO2 [Moles/Vol] 23.2 mmol/L Normal 23.0-27.0 [facility] Comment on above: Performed By: #### A BG ####Point of Care testing, HCO3 (Bld) [Moles/Vol] 22.2 mmol/L Low 23.0-29.0 [facility] Comment on above: Performed By: #### A BG ####Point of Care testing, Aspartate aminotransferase [ Enzymatic activity/volume] in Serum or PlasmaOrdered By: Bonilla Rubin on 03-08-2024 AST [Catalytic activity/Vol] 14 U/L Normal 13-39 [facility] Comment on above: Performed By: #### P TT, HS TROP, PT, CMP, CK, CBC ####[address] Automated basophil %Ordered By: Bonilla Rubin on 03-08-2024 Basophils/100 WBC (Bld) 1.0 % Normal . [facility] Comment on above: Performed By: #### P TT, HS TROP, PT, CMP, CK, CBC ####[address] Automated basophil countOrde red By: Bonilla Rubin on 03-08-2024 Basophils (Bld) [#/Vol] 0.1 10*3/uL Normal 0.0-0.2 [facility] Comment on above: Result Comment: PERF ORMED BY:[address] [place], [place] [phone] MEDICAL DIRECTORCLIFFORD LOBATO M.D. Performed By: #### P TT, HS TROP, PT, CMP, CK, CBC ####[address] Automated blood monocyte cou ntOrdered By: Bonilla Rubin on 03-08-2024 Monocytes (Bld) [#/Vol] 1.2 10*3/uL High 0.0-0.8 [facility] Comment on above: Performed By: #### P TT, HS TROP, PT, CMP, CK, CBC ####[address] Automated eosinophil %Ordere d By: Bonilla Rubin on 03-08-2024 Eosinophils/100 WBC (Bld) 3.3 % Normal . [facility] Comment on above: Performed By: #### P TT, HS TROP, PT, CMP, CK, CBC ####[address] Automated eosinophil countOr dered By: Bonilla Rubin on 03-08-2024 Eosinophils (Bld) [#/Vol] 0.3 10*3/uL Normal 0.0-0.45 [facility] Comment on above: Performed By: #### P TT, HS TROP, PT, CMP, CK, CBC ####[facility] [id number] Automated monocyte %Ordered By: Bonilla Rubin on 03-08-2024 Monocytes/100 WBC (Bld) 13.2 % Normal . [facility] Comment on above: Performed By: #### P TT, HS TROP, PT, CMP, CK, CBC ####[facility] [place] [address] Automated neutrophil %Ordere d By: Bonilla Rubin on 03-08-2024 Neutrophils/100 WBC (Bld) 69.4 % Normal . [facility] Comment on above: Performed By: #### P TT, HS TROP, PT, CMP, CK, CBC ####[facility] [address] [place] [address] Bacterial blood cultureOrder ed By: Bonilla Rubin on 03-08-2024 Bacteria identified Cx Nom (Bld) Bacterial blood culture [facility] Bacteria identified Cx Nom (Bld) Bacterial blood culture [facility] Bacteria identified Cx Nom (Bld) NO GROWTH 5 DAYS [facility] Bacteria identified Cx Nom (Bld) NO GROWTH 5 DAYS [facility] Barbiturates [Presence] in U rine by Screen methodOrdered By: Bonilla Rubin on 03-08-2024 Barbiturates Screen Ql (U) Negative Negative [facility] Barbiturates Screen Ql (U) Barbiturates [Presence] in Urine by Screen method Negative [facility] Benzodiazepines Screen Ql (U )Ordered By: Bonilla Rubin on 03-08-2024 Benzodiazepines Ql (U) Negative Negative [facility] Benzodiazepines Ql (U) Benzodiazepines [Presence] in Urine by Screen method Negative [facility] Benzoylecgonine [Presence] i n Urine by Screen methodOrdered By: Bonilla Rubin on 03-08-2024 Benzoylecgonine Screen Ql (U) Negative Negative [facility] Benzoylecgonine Screen Ql (U) Benzoylecgonine [Presence] in Urine by Screen method Negative [facility] Bilirubin Test strip Ql (U)O rdered By: Bonilla Rubin on 03-08-2024 Bilirubin Ql (U) Negative Negative [facility] Bilirubin Ql (U) Bilirubin.total [Presence] in Urine by Test strip Negative [facility] Bilirubin.total [Mass/volume ] in Serum or PlasmaOrdered By: Bonilla Rubin on 03-08-2024 Bilirubin [Mass/Vol] 0.4 mg/dL Normal 0.3-1.0 [facility] Comment on above: Performed By: #### P TT, HS TROP, PT, CMP, CK, CBC ####[address] BioFire Not Detectedon 03-08 BioFire Not Detected Not detected Normal Not Detecte [facility] Comment on above: Result Comment: This is a duplicate RP2.1 COVID (PCR) result to be used for statistical tracking purpose only.PERFORMED BY:[address] [id number] MEDICAL DIRECTORCLIFFORD LOBATO M.D. Performed By: #### R QUE PANEL UPP., BIOFIRECOVNOTDE ####[place] [phone] [facility] Blood Cultureon 03-08-2024 Bacteria identified Cx Nom (Bld) NO GROWTH 5 DAYS PERFORMED BY: [facility] [address] [place] [address] PATHOLOGIST SOFTWARE SUPPORT SPECIALIST CLIFFORD LOBATO M.D. Normal [facility] Comment on above: Performed By: #### C UBLD, LACTIC ####[place] [phone] [facility] Bacteria identified Cx Nom (Bld) NO GROWTH 5 DAYS PERFORMED BY: [facility] [address] [place] [id number] PATHOLOGIST SOFTWARE SUPPORT SPECIALIST CLIFFORD LOBATO M.D. Normal [facility] Comment on above: Performed By: #### C UBLD, LACTIC ####[place] [address] [place] [address] [facility] COVID-19 Detected/Not Detect edOrdered By: Bonilla Rubin on 03-08-2024 SARS-CoV-2 (COVID-19) RNA NELLY+non-probe Ql (Nph) Not detected Not Detecte [facility] Comment on above: This is a duplicate RP2.1 COVID (PCR) result to be used for statistical tracking purpose only. CT angio headon 03-08-2024 CT angio head Normal [facility] Calcium [Mass/volume] in Ser um or PlasmaOrdered By: Bonilla Rubin on 03-08-2024 Calcium [Mass/Vol] 9.6 mg/dL Normal 8.6-10.[address] [facility] Comment on above: Performed By: #### P TT, HS TROP, PT, CMP, CK, CBC ####[facility] [place] [address] [facility] Cannabinoids [Presence] in U rine by Screen methodOrdered By: Bonilla Rubin on 03-08-2024 Cannabinoids Screen Ql (U) Negative Negative [facility] Comment on above: These are unconfirme d results and should not be used for legal purposes. Drug Cut-Off Concentration: AMPH 1000 ng/mL JERMAINE 200 ng/mL SAVANNAH 200 ng/mL COCM 300 ng/mL OP 300 ng/mL PCP 25 ng/mL THC 20 ng/mL Cannabinoids Screen Ql (U) Cannabinoids [Presence] in Urine by Screen method Negative [facility] Comment on above: These are unconfirme d results and should not be used for legal purposes. Drug Cut-Off Concentration: AMPH 1000 ng/mL JERMAINE 200 ng/mL SAVANNAH 200 ng/mL COCM 300 ng/mL OP 300 ng/mL PCP 25 ng/mL THC 20 ng/mL Capillary blood glucose ashley urement by glucometer (mass/volume)Ordered By: Bonilla Rubin on 03-08-2024 Glucose [Mass/Vol] 182 mg/dL Normal [facility] Comment on above: Result Comment: [place] Glucose Reference Range is dependent on time and content of last meal. Glucose of more than 200 mg/dL in a nonstressed, ambulatory subject supports the diagnosis of Diabetes Mellitus.PERFORMED BY:[address] [place], [place] [id number] MEDICAL DIRECTORCLIFFORD LOBATO M.D. Performed By: #### G NELI ####Point of Care testing, Carbon dioxide, total [Moles /volume] in Serum or PlasmaOrdered By: Bonilla Rubin on 03-08-2024 CO2 [Moles/Vol] 25.0 mmol/L Normal 21.0-31.0 [facility] Comment on above: Performed By: #### P TT, HS TROP, PT, CMP, CK, CBC ####[place] [phone] [facility] Chloride [Moles/volume] in S ilia or PlasmaOrdered By: Bonilla Rubin on 03-08-2024 Chloride [Moles/Vol] 106 mmol/L Normal 98-107 [facility] Comment on above: Performed By: #### P TT, HS TROP, PT, CMP, CK, CBC ####[place] [id number] [facility] Color Auto (U)Ordered By: Yasmin Rubin on 03-08-2024 Color (U) Color of Urine by Auto Yellow [facility] Color of Urine by AutoOrdere d By: Bonilla Rubin on 03-08-2024 Color (U) Light-yellow Normal Yellow [facility] Comment on above: Order Comment: Name Collection Type:: Straight Catheter Performed By: #### U A ####[place] [id number] [facility] Complete Blood Count Auto Di ffon 03-08-2024 Mean Corpuscular HGB Conc 32.0 g/dL Low 32.5-35.6 [facility] Comment on above: Performed By: #### P TT, HS TROP, PT, CMP, CK, CBC ####[address] Monocytes/100 WBC (Bld) 18.68 % Normal 0.00-20.00 [facility] Comment on above: Performed By: #### P TT, HS TROP, PT, CMP, CK, CBC ####[place] [address] [place] [address] [facility] NRBC% 0.2 /100{WBC} Normal 0-0.[address] [facility] Comment on above: Performed By: #### P TT, HS TROP, PT, CMP, CK, CBC ####[address] [address] [facility] Comprehensive Metabolic Pane guy 03-08-2024 Albumin [Mass/Vol] 3.8 g/dL Normal 3.5-5.7 [facility] Comment on above: Performed By: #### P TT, HS TROP, PT, CMP, CK, CBC ####[place] [id number] [facility] Creatinine Clr Calc Pharmacy 44.90 Normal [facility] Comment on above: Result Comment: PERF ORMED BY:[address] [place], [place] [phone] MEDICAL DIRECTORCLIFFORD LOBATO M.D. Performed By: #### P TT, HS TROP, PT, CMP, CK, CBC ####[place] [id number] [facility] GFR/1.73 sq M.predicted MDRD (S/P/Bld) [Vol rate/Area] 40.131 mL/min/{1.73_m2} Normal The [facility] Comment on above: Performed By: #### P TT, HS TROP, PT, CMP, CK, CBC ####[place] [id number] [facility] Creatine kinase [Enzymatic a ctivity/volume] in Serum or PlasmaOrdered By: Bonilla Rubin on 03-08-2024 CK [Catalytic activity/Vol] 181 U/L Normal [facility] Comment on above: Performed By: #### P TT, HS TROP, PT, CMP, CK, CBC ####[address] [address] [facility] CK [Catalytic activity/Vol] Creatine kinase [Enzymatic activity/volume] in Serum or Plasma [facility] Creatinine [Mass/volume] in Serum or PlasmaOrdered By: Bonilla Rubin on 03-08-2024 Creatinine [Mass/Vol] 1.91 mg/dL High 0.70-1.30 [facility] Comment on above: Performed By: #### P TT, HS TROP, PT, CMP, CK, CBC ####[address] [address] [place] [id number] [facility] Drug Screen,Urineon 03-08-20 24 Amphetamine Screen,Urine Negative Normal Negative [facility] Comment on above: Performed By: #### U RDS ####[place] [id number] [facility] Barbiturate Screen,Urine Negative Normal Negative [facility] Comment on above: Performed By: #### U RDS ####[place] [id number] [facility] Benzodiazepines Screen,Urine Negative Normal Negative [facility] Comment on above: Performed By: #### U RDS ####[place] [id number] [facility] Cannabinoid Screen,Urine Negative Normal Negative [facility] Comment on above: Result Comment: Thes e are unconfirmed results and should not be used for legal purposes. Drug Cut-Off Concentration: AMPH 1000 ng/mL JERMAINE 200 ng/mL SAVANNAH 200 ng/mL COCM 300 ng/mL OP 300 ng/mL PCP 25 ng/mL THC 20 ng/mLPERFORMED BY:[address] [place], [place] [phone] MEDICAL DIRECTORCLIFFORD LOBATO M.D. Performed By: #### U RDS ####[address] [address] [facility] Cocaine Screen,Urine Negative Normal Negative [facility] Comment on above: Performed By: #### U RDS ####[place] [id number] [facility] Opiate Screen,Urine Negative Normal Negative [facility] Comment on above: Performed By: #### U RDS ####[place] [id number] [facility] Phencyclidine Screen,Urine Negative Normal Negative [facility] Comment on above: Performed By: #### U RDS ####[address] [address] [facility] ECG 12 lead ECGon 03-08-2024 ECG 12 lead ECG Normal [facility] Erythrocyte distribution wid th [Ratio] by Automated countOrdered By: Bonilla Rubin on 03-08-2024 Erythrocyte distribution width (RBC) [Ratio] 22.0 % High 12.0-14.8 [facility] Comment on above: Performed By: #### P TT, HS TROP, PT, CMP, CK, CBC ####[address] [address] [facility] Erythrocytes [#/volume] in B lood by Automated countOrdered By: Bonilla Rubin on 03-08-2024 RBC (Bld) [#/Vol] 4.54 10*6/uL Normal 3.90-5.60 [facility] Comment on above: Performed By: #### P TT, HS TROP, PT, CMP, CK, CBC ####[address] [address] [facility] Glucose [Mass/volume] in Ser um or PlasmaOrdered By: Bonilla Rubin on 03-08-2024 Glucose [Mass/Vol] 167 mg/dL High 70-[address] [facility] Comment on above: Result Comment: [facility] Glucose Reference Range is dependent on time and content of last meal. Glucose of more than 200 mg/dL in a nonstressed, ambulatory subject supports the diagnosis of Diabetes Mellitus. ADA recommended reference range Performed By: #### P TT, HS TROP, PT, CMP, CK, CBC ####[address] [address] [facility] Glucose [Mass/volume] in Uri ne by Test stripOrdered By: Bonilla Rubin on 03-08-2024 Glucose Test strip (U) [Mass/Vol] >=1000 mg/dL High Normal [facility] Glucose Test strip (U) [Mass/Vol] Glucose [Mass/volume] in Urine by Test strip [facility] Hematocrit [Volume Fraction] of Blood by Automated countOrdered By: Bonilla Rubin on 03-08-2024 Hematocrit (Bld) [Volume fraction] 32.2 % Low 38.8-50.0 [facility] Comment on above: Performed By: #### P TT, HS TROP, PT, CMP, CK, CBC ####[facility] [id number] Hemoglobin Test strip Ql (U) Ordered By: Bonilla Rubin on 03-08-2024 Hemoglobin Ql (U) Negative Negative [facility] Hemoglobin Ql (U) Hemoglobin [Presence ] in Urine by Test strip Negative [facility] Hemoglobin [Mass/volume] in BloodOrdered By: Bonilla Rubin on 03-08-2024 Hemoglobin (Bld) [Mass/Vol] 10.3 g/dL Low 13.0-17.0 [facility] Comment on above: Performed By: #### P TT, HS TROP, PT, CMP, CK, CBC ####[place] [id number] INR in Platelet poor plasma by Coagulation assayOrdered By: Bonilla Rubin on 03-08-2024 INR Coag (PPP) [Relative time] 1.1 {INR} Normal [facility] Comment on above: INR Therapeutic Rang e [...] TT, HS TROP, PT, CMP, CK, CBC ####[place] [id number] INR Coag (PPP) [Relative time] INR in Platelet poor plasma by Coagulation assay [facility] Comment on above: INR Therapeutic Rang e [...] i n Urine by Test strip Negative [facility] Ketones [Presence] in Urine by Test stripOrdered By: Bonilla Rubin on 03-08-2024 Ketones Ql (U) Negative Normal Negative [facility] Comment on above: Order Comment: Name Collection Type:: Straight Catheter Performed By: #### U A ####[place] [id number] [place] Lactate [Moles/volume] in Se rum or PlasmaOrdered By: Bonilla Rubin on 03-08-2024 Lactate [Moles/Vol] 1.1 mmol/L Normal 0.5-2.2 [facility] Comment on above: Result Comment: PERF ORMED BY:[address] [place], [place] [phone] MEDICAL BRISA LOBATO M.D. Performed By: #### C UBLD, LACTIC ####[place] [id number] [facility] Lactate [Moles/Vol] Lactate [Moles/volum e] in Serum or Plasma 0.5-2.2 [facility] Leukocyte esterase [Presence ] in Urine by Test stripOrdered By: Bonilla Rubin on 03-08-2024 Leukocyte esterase Test strip Ql (U) Negative Normal Negative [facility] Comment on above: Order Comment: Name Collection Type:: Straight Catheter Performed By: #### U A ####[address] [address] [facility] Leukocyte esterase Test strip Ql (U) Leukocyte esterase [Presence] in Urine by Test strip Negative [facility] Leukocytes [#/volume] correc jorge for nucleated erythrocytes in Blood by Automated counOrdered By: Bonilla Rubin on 03-08-2024 WBC corrected for nucl RBC Auto (Bld) [#/Vol] 8.9 10*3/uL 4.1-10.5 [facility] Leukocytes [#/volume] in Blo od by Automated countOrdered By: Bonilla Rubin on 03-08-2024 WBC (Bld) [#/Vol] 8.9 10*3/uL Normal 4.1-10.[address] [facility] Comment on above: Performed By: #### P TT, HS TROP, PT, CMP, CK, CBC ####[address] Lymphocytes [#/volume] in Bl ood by Automated countOrdered By: Bonilla Rubin on 03-08-2024 Lymphocytes (Bld) [#/Vol] 1.2 10*3/uL Normal 1.00-4.8 [facility] Comment on above: Performed By: #### P TT, HS TROP, PT, CMP, CK, CBC ####[address] Lymphocytes/100 leukocytes i n Blood by Automated countOrdered By: Bonilla Rubin on 03-08-2024 Lymphocytes/100 WBC (Bld) 13.1 % Normal . [facility] Comment on above: Performed By: #### P TT, HS TROP, PT, CMP, CK, CBC ####[address] MCH [Entitic mass] by Automa jorge countOrdered By: Bonilla Rubin on 03-08-2024 MCH (RBC) [Entitic mass] 22.7 pg Low 27.5-35.2 [facility] Comment on above: Performed By: #### P TT, HS TROP, PT, CMP, CK, CBC ####[address] MCHC Auto (RBC) [Mass/Vol]Or dered By: Bonilla Rubin on 03-08-2024 MCHC (RBC) [Mass/Vol] 32.0 g/dL Low 32.5-35.6 [facility] MCV [Entitic volume] by Auto mated countOrdered By: Bonilla Rubin on 03-08-2024 MCV (RBC) [Entitic vol] 71.0 fL Low 83.5-101 [facility] Comment on above: Performed By: #### P TT, HS TROP, PT, CMP, CK, CBC ####[facility] [id number] MR head/brain wo conon 03-08 MR head/brain wo con Normal [facility] Monocyte distribution width [Entitic volume] in Blood by AutomatedOrdered By: Bonilla Rubin on 03-08-2024 Monocyte distribution width Auto (Bld) [Entitic vol] 18.68 % 0.00-20.00 [facility] Monocyte distribution width Auto (Bld) [Entitic vol] Monocyte distribution width [Entitic volume] in Blood by Automated 0.00-20.00 [facility] Neutrophils [#/volume] in Bl ood by Automated countOrdered By: Bonilla Rubin on 03-08-2024 Neutrophils (Bld) [#/Vol] 6.2 10*3/uL Normal 1.8-7.7 [facility] Comment on above: Performed By: #### P TT, HS TROP, PT, CMP, CK, CBC ####[facility] [id number] Nitrite Test strip Ql (U)Ord ered By: Bonilla Rubin on 03-08-2024 Nitrite Ql (U) Negative Negative [facility] Nitrite Ql (U) Nitrite [Presence] i n Urine by Test strip Negative [facility] No Panel InformationOrdered By: Bonilla Rubin on 03-08-2024 Arterial Blood Base Excess -1.4 mmol/L -3.0-3.0 [facility] Arterial Blood Oxygen Content 6.4 mmol/L Low 6.6-9.7 [facility] Arterial Blood Oxygen Saturation 97.1 % 95.0-100.0 [facility] Arterial Blood Partial Pressure CO2 33.3 mm[Hg] Low 35.0-45.0 [facility] Arterial Blood Partial Pressure O2 92.6 mm[Hg] 80.0-100.0 [facility] Arterial Blood pH 7.44 7.35-7.45 [facility] Blood Gas Critical Value See comment [facility] Comment on above: Critical Value shai hooker on: 03/08/2024 at 15:16 Blood Gas Sample Site Left radial [facility] FiO2 21 % [facility] 7.44 7.35-7.45 [facility] 33.3 mm[Hg] Low 35.0-45.0 [facility] 92.6 mm[Hg] 80.0-100.0 [facility] 22.2 mmol/L Low 23.0-29.0 [facility] -1.4 mmol/L -3.0-3.0 [facility] 97.1 % 95.0-100.0 [facility] 6.4 mmol/L Low 6.6-9.7 [facility] 23.2 mmol/L 23.0-27.0 [facility] 21 % [facility] Left radial [facility] See comment [facility] 40.131 mL/Min [facility] 44.90 [facility] Nucleated erythrocytes [Pres ence] in Blood by Automated countOrdered By: Bonilla Rubin on 03-08-2024 Nucleated RBC Auto Ql (Bld) 0.2 /100{WBC} 0-0.5 [facility] Opiates [Presence] in Urine by Screen methodOrdered By: Bonilla Rubin on 03-08-2024 Opiates Screen Ql (U) Negative Negative [facility] Opiates Screen Ql (U) Opiates [Presence] in Urine by Screen method Negative [facility] Partial Thromboplastin Timeo n 03-08-2024 aPTT Coag (Bld) [Time] 29.6 s Normal 25.1-36.5 Th e [facility] Comment on above: Result Comment: A he matocrit value greater than 55% may lead to inaccurate results in coagulation testing. Patients having hematocrit values >55% require a special collection tube for coagulation studies. Please contact the laboratory at [phone] for redraw instructions.PERFORMED BY:[address] [place], [place] [phone] MEDICAL DIRECTORCLIFFORD LOBATO M.D. Performed By: #### P TT, HS TROP, PT, CMP, CK, CBC ####[place] [id number] [facility] Phencyclidine Screen Ql (U)O rdered By: Bonilla Rubin on 03-08-2024 Phencyclidine Ql (U) Negative Negative [facility] Phencyclidine Ql (U) Phencyclidine [Pres ence] in Urine by Screen method Negative [facility] Platelet mean volume [Entiti c volume] in Blood by Automated countOrdered By: Bonilla Rubin on 03-08-2024 Platelet mean volume (Bld) [Entitic vol] 8.2 fL Normal 6.6-10.1 [facility] Comment on above: Performed By: #### P TT, HS TROP, PT, CMP, CK, CBC ####[address] Platelets [#/volume] in Bloo d by Automated countOrdered By: Bonilla Rubin on 03-08-2024 Platelets (Bld) [#/Vol] 286 10*3/uL Normal 150-450 [facility] Comment on above: Performed By: #### P TT, HS TROP, PT, CMP, CK, CBC ####[place] [id number] [facility] Potassium [Moles/volume] in Serum or PlasmaOrdered By: Bonilla Rubin on 03-08-2024 Potassium [Moles/Vol] 4.1 mmol/L Normal 3.5-5.1 [facility] Comment on above: Performed By: #### P TT, HS TROP, PT, CMP, CK, CBC ####[place] [id number] [facility] Protein Test strip (U) [Mass /Vol]Ordered By: Bonilla Rubin on 03-08-2024 Protein (U) [Mass/Vol] Negative Negative [facility] Protein (U) [Mass/Vol] Protein [Mass/vol ume] in Urine by Test strip Negative [facility] Protein [Mass/volume] in Ser um or PlasmaOrdered By: Bonilla Rubin on 03-08-2024 Protein [Mass/Vol] 7.7 g/dL Normal 6.4-8.[address] [facility] Comment on above: Performed By: #### P TT, HS TROP, PT, CMP, CK, CBC ####[facility] [place] [id number] [facility] Prothrombin time (PT)Ordered By: Bonilla Rubin on 03-08-2024 PT Coag (PPP) [Time] 13.0 s High 9.0-12.9 [facility] Comment on above: A hematocrit value g reater than 55% may lead to inaccurate results in coagulation testing. Patients having hematocrit values >55% require a special collection tube for coagulation studies. Please contact the laboratory at [phone] for redraw instructions. Result Comment: A he matocrit value greater than 55% may lead to inaccurate results in coagulation testing. Patients having hematocrit values >55% require a special collection tube for coagulation studies. Please contact the laboratory at [phone] for redraw instructions. Performed By: #### P TT, HS TROP, PT, CMP, CK, CBC ####[place] [id number] [facility] PT Coag (PPP) [Time] Prothrombin time (PT) High 9.0- 12.9 [facility] Comment on above: A hematocrit value g reater than 55% may lead to inaccurate results in coagulation testing. Patients having hematocrit values >55% require a special collection tube for coagulation studies. Please contact the laboratory at [phone] for redraw instructions. Respiratory (Upper) Panel, P CRon 03-08-2024 Respiratory (Upper) Panel, PCR Normal [facility] Comment on above: Performed By: #### R QUE PANEL UPP., BIOFIRECOVNOTDE ####[place] [id number] [place] [phone] [facility] Respiratory pathogens DNA an d RNA panel - Nasopharynx by NELLY with non-probe detectionOrdered By: Bonilla Rubin on 10-04-2024 Respiratory pathogens DNA and RNA panel NELLY+non-probe (Nph) Respiratory pathogens DNA and RNA panel - Nasopharynx by NELLY with non-probe detection [facility] Respiratory pathogens DNA and RNA panel NELLY+non-probe (Nph) [facility] Serum globulin measurement b y calculation (mass/volume)Ordered By: Bonilla Rubin on 03-08-2024 Globulin (S) [Mass/Vol] 3.9 g/dL [facility] Comment on above: Performed By: #### P TT, HS TROP, PT, CMP, CK, CBC ####[facility] [id number] [place] [address] Serum or plasma albumin/glob ulin mass ratioOrdered By: Bonilla Rubin on 03-08-2024 Albumin/Globulin [Mass ratio] 1.0 {ratio} [facility] Comment on above: Performed By: #### P TT, HS TROP, PT, CMP, CK, CBC ####[address] Serum or plasma anion gap de terminationOrdered By: Bonilla Rubin on 03-08-2024 Anion gap [Moles/Vol] 14.1 mmol/L Normal 6.0-15.0 [facility] Comment on above: Performed By: #### P TT, HS TROP, PT, CMP, CK, CBC ####[address] Sodium [Moles/volume] in Ser um or PlasmaOrdered By: Bonilla Rubin on 03-08-2024 Sodium [Moles/Vol] 141 mmol/L Normal 136-[address] [facility] Comment on above: Performed By: #### P TT, HS TROP, PT, CMP, CK, CBC ####[address] Specific gravity Test strip (U) [Rel density]Ordered By: Bonilla Rubin on 03-08-2024 Specific gravity (U) [Rel density] 1.013 1.001-1.03 0 [facility] Specific gravity (U) [Rel density] Specific gravity of Urine by Test strip 1.001-1.03 0 [facility] Troponin I High Sensitivityo n 03-08-2024 Troponin I High Sensitivity 6.1 pg/mL Normal 0.0-20.0 [facility] Comment on above: Result Comment: PERF ORMED BY:[place] [place], [place] [phone] MEDICAL DIRECTORCLIFFORD LOBATO M.D. Performed By: #### P TT, HS TROP, PT, CMP, CK, CBC ####[address] [address] [facility] Troponin I.cardiac [Mass/vol ume] in Serum or Plasma by Detection limit <= 0.01 ng/Ordered By: Bonilla Rubin on 03-08-2024 Troponin I.cardiac DL <= 0.01 ng/mL [Mass/Vol] 6.1 pg/mL 0.0-20.0 [facility] Troponin I.cardiac DL <= 0.01 ng/mL [Mass/Vol] Troponin I.cardiac [Mass/volume] in Serum or Plasma by Detection limit <= 0.01 ng/ 0.0-20.0 [facility] Urea nitrogen [Mass/volume] in Serum or PlasmaOrdered By: Bonilla Rubin on 03-08-2024 Urea nitrogen [Mass/Vol] 19 mg/dL Normal 7-25 [facility] Comment on above: Performed By: #### P TT, HS TROP, PT, CMP, CK, CBC ####[address] [address] [facility] Urinalysison 03-08-2024 Bilirubin,Urine Negative Normal Negative [facility] Comment on above: Order Comment: Name Collection Type:: Straight Catheter Performed By: #### U A ####[address] [address] [facility] Glucose Ql (U) >=1000 High Normal [facility] Comment on above: Order Comment: Name Collection Type:: Straight Catheter Performed By: #### U A ####[address] [address] [facility] Nitrite,Urine Negative Normal Negative [facility] Comment on above: Order Comment: Name Collection Type:: Straight Catheter Performed By: #### U A ####[address] [address] [facility] Occult Blood,Urine Negative Normal Negative [facility] Comment on above: Order Comment: Name Collection Type:: Straight Catheter Result Comment: PERF ORMED BY:[place] [address] [place], [place] [phone] MEDICAL DIRECTORCLIFFORD LOBATO M.D. Performed By: #### U A ####[address] [address] [facility] Protein,Urine Negative Normal Negative [facility] Comment on above: Order Comment: Name Collection Type:: Straight Catheter Performed By: #### U A ####[address] [address] [facility] Specificy [place],Urine 1.013 Normal 1.001-1.03 0 [facility] Comment on above: Order Comment: Name Collection Type:: Straight Catheter Performed By: #### U A ####[address] [address] [facility] Urobilinogen,Urine Normal Normal Normal [facility] Comment on above: Order Comment: Name Collection Type:: Straight Catheter Performed By: #### U A ####[address] [address] [facility] Urine appearanceOrdered By: Bonilla Rubin on 03-08-2024 Appearance (U) Clear Normal Clear [facility] Comment on above: Order Comment: Name Collection Type:: Straight Catheter Performed By: #### U A ####[address] [address] [facility] Urobilinogen Test strip (U) [Mass/Vol]Ordered By: Bonilla Rubin on 03-08-2024 Urobilinogen (U) [Mass/Vol] Normal mg/dL Normal [facility] Urobilinogen (U) [Mass/Vol] Urobilinogen [Mass/volume] in Urine by Test strip Normal [facility] XR chest 1V portableon 03-08 XR chest 1V portable Normal [facility] aPTT in Platelet poor plasma by Coagulation assayOrdered By: Bonilla Rubin on 03-08-2024 aPTT Coag (PPP) [Time] Activated partial thromboplastin time (aPTT) in platelet poor plasma by coagulation a 25.1-36.5 [facility] Comment on above: A hematocrit value g reater than 55% may lead to inaccurate results in coagulation testing. Patients having hematocrit values >55% require a special collection tube for coagulation studies. Please contact the laboratory at [phone] for redraw instructions. pH Test strip (U)Ordered By: Bonilla Rubin on 03-08-2024 pH (U) pH of Urine by Test strip 5.0-9.0 [facility] pH of Urine by Test stripOrd ered By: Bonilla Rubin on 03-08-2024 pH (U) 5.0 [pH] Normal 5.0-9.0 [facility] Comment on above: Order Comment: Name Collection Type:: Straight Catheter Performed By: #### U A ####[facility] [id number] [place] [id number] [facility] Alanine aminotransferase [En zymatic activity/volume] in Serum or PlasmaOrdered By: João Powell on 03-06-2024 ALT [Catalytic activity/Vol] 11 U/L Normal [facility] Comment on above: Performed By: #### M G, PHOS, CMP, DIFF CBC ####[facility] [id number] [place], [place] [id number] [facility] ALT [Catalytic activity/Vol] Alanine aminotransferase [Enzymatic activity/volume] in Serum or Plasma [facility] Albumin [Mass/volume] in Ser um or Plasma by Bromocresol green (BCG) dye binding methoOrdered By: João Powell on 03-06-2024 Albumin BCG dye [Mass/Vol] 3.3 g/dL Low 3.5-5.7 [facility] Albumin BCG dye [Mass/Vol] Albumin [Mass/volume] in Serum or Plasma by Bromocresol green (BCG) dye binding metho Low 3.5-5.7 [facility] Alkaline phosphatase [Enzyma tic activity/volume] in Serum or PlasmaOrdered By: João Powell on 03-06-2024 ALP [Catalytic activity/Vol] 101 U/L Normal 34-104 [facility] Comment on above: Performed By: #### M G, PHOS, CMP, DIFF CBC ####[place] [id number] ALP [Catalytic activity/Vol] Alkaline phosphatase [Enzymatic activity/volume] in Serum or Plasma 34-104 [facility] Anisocytosis LM Ql (Bld)Orde red By: João Powell on 03-06-2024 Anisocytosis Ql (Bld) Anisocytosis [Pres ence] in Blood by Light microscopy [facility] Anisocytosis [Presence] in B lood by Light microscopyOrdered By: João Powell on 03-06-2024 Anisocytosis Ql (Bld) Marked Normal [facility] Comment on above: Performed By: #### M G, PHOS, CMP, DIFF CBC ####[address] Aspartate aminotransferase [ Enzymatic activity/volume] in Serum or PlasmaOrdered By: João Powell on 03-06-2024 AST [Catalytic activity/Vol] 14 U/L Normal 13-39 [facility] Comment on above: Performed By: #### M G, PHOS, CMP, DIFF CBC ####[place] [id number] [facility] AST [Catalytic activity/Vol] Aspartate aminotransferase [Enzymatic activity/volume] in Serum or Plasma 13-39 [facility] Basophils Auto (Bld) [#/Vol] Ordered By: João Powell on 03-06-2024 Basophils (Bld) [#/Vol] N/A [facility] Basophils (Bld) [#/Vol] Automated basophil count [facility] Basophils/100 WBC Auto (Bld) Ordered By: João Powell on 03-06-2024 Basophils/100 WBC (Bld) N/A [facility] Basophils/100 WBC (Bld) Automated basophil % [facility] Basophils/100 WBC Manual cnt (Bld)Ordered By: João Powell on 10-02-2024 Basophils/100 WBC (Bld) Basophils/100 leukocytes in Blood by Manual count 0-2 [facility] Basophils/100 leukocytes in Blood by Manual countOrdered By: João Powell on 03-06-2024 Basophils/100 WBC (Bld) 1 % Normal 0-2 [facility] Comment on above: Performed By: #### M G, PHOS, CMP, DIFF CBC ####[facility] [id number] Bilirubin.total [Mass/volume ] in Serum or PlasmaOrdered By: João Powell on 03-06-2024 Bilirubin [Mass/Vol] 0.4 mg/dL Normal 0.3-1.0 [facility] Comment on above: Performed By: #### M G, PHOS, CMP, DIFF CBC ####[facility] [place] [id number] [facility] Bilirubin [Mass/Vol] Bilirubin.total [Mass/volume] in Serum or Plasma 0.3-1.0 [facility] Calcium [Mass/volume] in Ser um or PlasmaOrdered By: João Powell on 03-06-2024 Calcium [Mass/Vol] 8.7 mg/dL Normal 8.6-10.[address] [facility] Comment on above: Performed By: #### M G, PHOS, CMP, DIFF CBC ####[place] [id number] [facility] Calcium [Mass/Vol] Calcium [Mass/volume ] in Serum or Plasma 8.6-10.3 [facility] Capillary blood glucose ashley urement by glucometer (mass/volume)Ordered By: João Powell on 03-06-2024 Glucose [Mass/Vol] 169 mg/dL Normal [facility] Comment on above: Random Glucose Refer ence Range is dependent on time and content of last meal. Glucose of more than 200 mg/dL in a nonstressed, ambulatory subject supports the diagnosis of Diabetes Mellitus. Result Comment: [place] om Glucose Reference Range is dependent on time and content of last meal. Glucose of more than 200 mg/dL in a nonstressed, ambulatory subject supports the diagnosis of Diabetes Mellitus.PERFORMED BY:[address], [place] [phone] MEDICAL DIRECTORCLIFFORD LOBATO M.D. Performed By: #### G NELI ####Point of Care testing, Carbon dioxide, total [Moles /volume] in Serum or PlasmaOrdered By: João Powell on 03-06-2024 CO2 [Moles/Vol] 24.3 mmol/L Normal 21.0-31.0 [facility] Comment on above: Performed By: #### M G, PHOS, CMP, DIFF CBC ####[address] [address] [facility] CO2 [Moles/Vol] Carbon dioxide, tota l [Moles/volume] in Serum or Plasma 21.0-31.0 [facility] Chloride [Moles/volume] in S ilia or PlasmaOrdered By: João Powell on 03-06-2024 Chloride [Moles/Vol] 107 mmol/L Normal 98-107 [facility] Comment on above: Performed By: #### M Ines, PHOS, CMP, DIFF CBC ####[address] [address] [facility] Chloride [Moles/Vol] Chloride [Moles/vol ume] in Serum or Plasma 98-107 [facility] Comprehensive Metabolic Pane guy 03-06-2024 Albumin [Mass/Vol] 3.3 g/dL Low 3.5-5.7 [facility] Comment on above: Performed By: #### M Ines, PHOS, CMP, DIFF CBC ####[place] [address] [place] [address] [place] Creatinine Clr Calc Pharmacy 62.24 Normal [facility] Comment on above: Performed By: #### M G, PHOS, CMP, DIFF CBC ####[address] [address] [place] GFR/1.73 sq M.predicted MDRD (S/P/Bld) [Vol rate/Area] 57.276 mL/min/{1.73_m2} Normal [facility] Comment on above: Performed By: #### M G, PHOS, CMP, DIFF CBC ####[address] Creatinine [Mass/volume] in Serum or PlasmaOrdered By: João Powell on 03-06-2024 Creatinine [Mass/Vol] 1.42 mg/dL High 0.70-1.30 [facility] Comment on above: Performed By: #### M G, PHOS, CMP, DIFF CBC ####[address] Creatinine [Mass/Vol] Creatinine [Mass/v olume] in Serum or Plasma High 0.70-1.30 [facility] Dacrocytes [Presence] in Blo od by Light microscopyOrdered By: João Powell on 03-06-2024 Dacrocytes LM Ql (Bld) Teardrop cell detection [facility] Diff and CBCon 03-06-2024 Hypochromasia Slight Normal [facility] Comment on above: Performed By: #### M G, PHOS, CMP, DIFF CBC ####[address] Large Platelets Slight Normal [facility] Comment on above: Result Comment: PERF ORMED BY:[address] [place], [place] [phone] MEDICAL DIRECTORCLIFFORD LOBATO M.D. Performed By: #### M G, PHOS, CMP, DIFF CBC ####[place] [id number] [facility] Mean Corpuscular HGB Conc 32.0 g/dL Low 32.5-35.6 [facility] Comment on above: Performed By: #### M G, PHOS, CMP, DIFF CBC ####[address] Microcytosis Slight Normal [facility] Comment on above: Performed By: #### M G, PHOS, CMP, DIFF CBC ####[place] [phone] [facility] Platelet Estimate Normal Normal Normal [facility] Comment on above: Performed By: #### M G, PHOS, CMP, DIFF CBC ####[facility] [id number] Polychromasia Slight Normal [facility] Comment on above: Performed By: #### M G, PHOS, CMP, DIFF CBC ####[facility] [id number] [place] [id number] [facility] Tear Drop Cells Slight Normal [facility] Comment on above: Performed By: #### M G, PHOS, CMP, DIFF CBC ####[facility] [place] [phone] [facility] Eosinophils Auto (Bld) [#/Vo l]Ordered By: João Powell on 03-06-2024 Eosinophils (Bld) [#/Vol] N/A [facility] Eosinophils (Bld) [#/Vol] Automated eosinophil count [facility] Eosinophils/100 WBC Auto (Bl d)Ordered By: João Powell on 03-06-2024 Eosinophils/100 WBC (Bld) N/A [facility] Eosinophils/100 WBC (Bld) Automated eosinophil % [facility] Eosinophils/100 WBC Manual c nt (Bld)Ordered By: João Powell on 03-06-2024 Eosinophils/100 WBC (Bld) Eosinophils/100 leukocytes in Blood by Manual count 1-3 [facility] Eosinophils/100 leukocytes i n Blood by Manual countOrdered By: João Powell on 03-06-2024 Eosinophils/100 WBC (Bld) 1 % Normal 1-3 [facility] Comment on above: Performed By: #### M G, PHOS, CMP, DIFF CBC ####[place] [id number] [place] [phone] [facility] Erythrocyte distribution wid th Auto (RBC) [Ratio]Ordered By: João Powell on 03-06-2024 Erythrocyte distribution width (RBC) [Ratio] Erythrocyte distribution width [Ratio] by Automated count High 12.0-14.8 [facility] Erythrocyte distribution wid th [Ratio] by Automated countOrdered By: João Powell on 03-06-2024 Erythrocyte distribution width (RBC) [Ratio] 21.1 % High 12.0-14.8 [facility] Comment on above: Performed By: #### M G, PHOS, CMP, DIFF CBC ####[facility] [id number] [place] [address] [facility] Erythrocyte morphology findi ng [Identifier] in BloodOrdered By: João Powell on 03-06-2024 RBC morphology finding Nom (Bld) RBC morphology [facility] Erythrocytes [#/volume] in B lood by Automated countOrdered By: João Powell on 03-06-2024 RBC (Bld) [#/Vol] 3.68 10*6/uL Low 3.90-5.60 [facility] Comment on above: Performed By: #### M G, PHOS, CMP, DIFF CBC ####[facility] [id number] [place] [address] [facility] Globulin Calc (S) [Mass/Vol] Ordered By: João Powell on 03-06-2024 Globulin (S) [Mass/Vol] Serum globulin measurement by calculation (mass/volume) [facility] Glucose Glucometer (BldC) [M ass/Vol]Ordered By: João Powell on 03-06-2024 Glucose [Mass/Vol] Capillary blood gluc ose measurement by glucometer (mass/volume) [facility] Comment on above: Random Glucose Refer ence Range is dependent on time and content of last meal. Glucose of more than 200 mg/dL in a nonstressed, ambulatory subject supports the diagnosis of Diabetes Mellitus. Glucose Poct Glucometerson 1 Glucose [Mass/Vol] 128 mg/dL Normal [facility] Comment on above: Result Comment: [place] Glucose Reference Range is dependent on time and content of last meal. Glucose of more than 200 mg/dL in a nonstressed, ambulatory subject supports the diagnosis of Diabetes Mellitus.PERFORMED BY:[address] [place], [place] [phone] MEDICAL DIRECTORCLIFFORD LOBATO M.D. Performed By: #### G LULS ####Point of Care testing, Glucose [Mass/volume] in Ser um or PlasmaOrdered By: João Powell on 03-06-2024 Glucose [Mass/Vol] 99 mg/dL Normal 70-[address] [facility] Comment on above: ADA recommended refe rence rangeRandom Glucose Reference Range is dependent on time and content of last meal. Glucose of more than 200 mg/dL in a nonstressed, ambulatory subject supports the diagnosis of Diabetes Mellitus. Result Comment: [place] Glucose Reference Range is dependent on time and content of last meal. Glucose of more than 200 mg/dL in a nonstressed, ambulatory subject supports the diagnosis of Diabetes Mellitus. ADA recommended reference range Performed By: #### M G, PHOS, CMP, DIFF CBC ####[place] [address] [place] [phone] [facility] Glucose [Mass/Vol] Glucose [Mass/volume ] in Serum or Plasma 70-100 [facility] Comment on above: ADA recommended refe rence rangeRandom Glucose Reference Range is dependent on time and content of last meal. Glucose of more than 200 mg/dL in a nonstressed, ambulatory subject supports the diagnosis of Diabetes Mellitus. Hematocrit Auto (Bld) [Volum e fraction]Ordered By: João Powell on 03-06-2024 Hematocrit (Bld) [Volume fraction] Hematocrit [Volume Fraction] of Blood by Automated count Low 38.8-50.0 [facility] Hematocrit [Volume Fraction] of Blood by Automated countOrdered By: João Powell on 03-06-2024 Hematocrit (Bld) [Volume fraction] 25.8 % Low 38.8-50.0 [facility] Comment on above: Performed By: #### M G, PHOS, CMP, DIFF CBC ####[place] [address] [place] [address] [facility] Hemoglobin [Mass/volume] in BloodOrdered By: João Powell on 03-06-2024 Hemoglobin (Bld) [Mass/Vol] 8.3 g/dL Low 13.0-17.0 [facility] Comment on above: Performed By: #### M G, PHOS, CMP, DIFF CBC ####[facility] [place] [phone] [facility] Hemoglobin (Bld) [Mass/Vol] Hemoglobin [Mass/volume] in Blood Low 13.0-17.0 [facility] Hypochromia LM Ql (Bld)Order ed By: João Powell on 03-06-2024 Hypochromia Ql (Bld) Slight [facility] Hypochromia Ql (Bld) Hypochromia [Presen ce] in Blood by Light microscopy [facility] Leukocytes [#/volume] correc jorge for nucleated erythrocytes in Blood by Automated counOrdered By: João Powell on 03-06-2024 WBC corrected for nucl RBC Auto (Bld) [#/Vol] 6.8 10*3/uL 4.1-10.5 [facility] WBC corrected for nucl RBC Auto (Bld) [#/Vol] Leukocytes [#/volume] corrected for nucleated erythrocytes in Blood by Automated coun 4.1-10.5 [facility] Leukocytes [#/volume] in Blo od by Automated countOrdered By: João Powell on 03-06-2024 WBC (Bld) [#/Vol] 6.8 10*3/uL Normal 4.1-10.[address] [facility] Comment on above: Performed By: #### M G, PHOS, CMP, DIFF CBC ####[facility] [id number] Lymphocytes Auto (Bld) [#/Vo l]Ordered By: João Powell on 03-06-2024 Lymphocytes (Bld) [#/Vol] N/A [facility] Lymphocytes (Bld) [#/Vol] Lymphocytes [#/volume] in Blood by Automated count [facility] Lymphocytes/100 WBC Auto (Bl d)Ordered By: oJão Powell on 03-06-2024 Lymphocytes/100 WBC (Bld) N/A [facility] Lymphocytes/100 WBC (Bld) Lymphocytes/100 leukocytes in Blood by Automated count [facility] Lymphocytes/100 WBC Manual c nt (Bld)Ordered By: João Powell on 03-06-2024 Lymphocytes/100 WBC (Bld) Lymphocytes/100 leukocytes in Blood by Manual count 18-42 [facility] Lymphocytes/100 leukocytes i n Blood by Manual countOrdered By: João Powell on 03-06-2024 Lymphocytes/100 WBC (Bld) 18 % Normal 18-42 [facility] Comment on above: Performed By: #### M G, PHOS, CMP, DIFF CBC ####[facility] [id number] MCH Auto (RBC) [Entitic mass ]Ordered By: João Powell on 03-06-2024 MCH (RBC) [Entitic mass] MCH [Entitic mass] by Automated count Low 27.5-35.2 [facility] MCH [Entitic mass] by Automa jorge countOrdered By: João Powell on 03-06-2024 MCH (RBC) [Entitic mass] 22.4 pg Low 27.5-35.2 [facility] Comment on above: Performed By: #### M G, PHOS, CMP, DIFF CBC ####[facility] [id number] MCHC Auto (RBC) [Mass/Vol]Or dered By: João Powell on 03-06-2024 MCHC (RBC) [Mass/Vol] 32.0 g/dL Low 32.5-35.6 [facility] MCHC (RBC) [Mass/Vol] MCHC [Mass/volume] by Automated count Low 32.5-35.6 [facility] MCV Auto (RBC) [Entitic vol] Ordered By: João Powell on 03-06-2024 MCV (RBC) [Entitic vol] MCV [Entitic volume] by Automated count Low 83.5-101 [facility] MCV [Entitic volume] by Auto mated countOrdered By: João Powell on 03-06-2024 MCV (RBC) [Entitic vol] 70.2 fL Low 83.5-101 [facility] Comment on above: Performed By: #### M G, PHOS, CMP, DIFF CBC ####[address] Magnesium [Mass/volume] in S ilia or PlasmaOrdered By: João Powell on 03-06-2024 Magnesium [Mass/Vol] 1.6 mg/dL Low 1.9-2.7 [facility] Comment on above: Result Comment: PERF ORMED BY:[facility] [place], [place] [id number] MEDICAL DIRECTORCLIFFORD LOBATO M.D. Performed By: #### M G, PHOS, CMP, DIFF CBC ####[facility] [place] [address] [facility] Magnesium [Mass/Vol] Magnesium [Mass/vol ume] in Serum or Plasma Low 1.9-2.7 [facility] Manual blood segmented neutr ophils/100 leukocytesOrdered By: João Powell on 03-06-2024 Segmented neutrophils/100 WBC (Bld) 72 % High 50-70 [facility] Comment on above: Performed By: #### M G, PHOS, CMP, DIFF CBC ####[facility] [place] [address] [facility] Microcytes LM Ql (Bld)Ordere d By: João Powell on 03-06-2024 Microcytes Ql (Bld) Slight [facility] Microcytes Ql (Bld) Microcytes [Presence ] in Blood by Light microscopy [facility] Monocytes Auto (Bld) [#/Vol] Ordered By: João Powell on 03-06-2024 Monocytes (Bld) [#/Vol] N/A [facility] Monocytes (Bld) [#/Vol] Automated blood monocyte count [facility] Monocytes/100 WBC Auto (Bld) Ordered By: João Powell on 03-06-2024 Monocytes/100 WBC (Bld) N/A [facility] Monocytes/100 WBC (Bld) Automated monocyte % [facility] Monocytes/100 WBC Manual cnt (Bld)Ordered By: João Powell on 03-06-2024 Monocytes/100 WBC (Bld) Monocytes/100 leukocytes in Blood by Manual count 2-11 [facility] Monocytes/100 leukocytes in Blood by Manual countOrdered By: João Powell on 03-06-2024 Monocytes/100 WBC (Bld) 8 % Normal 2-11 [facility] Comment on above: Performed By: #### M G, PHOS, CMP, DIFF CBC ####[facility] [id number] [place] [address] [facility] Neutrophils Auto (Bld) [#/Vo l]Ordered By: João Powell on 03-06-2024 Neutrophils (Bld) [#/Vol] N/A [facility] Neutrophils (Bld) [#/Vol] Neutrophils [#/volume] in Blood by Automated count [facility] Neutrophils/100 WBC Auto (Bl d)Ordered By: João Powell on 03-06-2024 Neutrophils/100 WBC (Bld) N/A [facility] Neutrophils/100 WBC (Bld) Automated neutrophil % [facility] No Panel InformationOrdered By: João Powell on 03-06-2024 Estimated GFR (CKD-EPI) 57.276 mL/Min [facility] Creatinine Clearance (Chem 62.24 [facility] 57.276 mL/Min [facility] 62.24 [facility] Nucleated erythrocytes [Pres ence] in Blood by Automated countOrdered By: João Powell on 03-06-2024 Nucleated RBC Auto Ql (Bld) N/A [facility] Nucleated RBC Auto Ql (Bld) Nucleated erythrocytes [Presence] in Blood by Automated count [facility] Phosphate [Mass/volume] in S ilia or PlasmaOrdered By: João Powell on 03-06-2024 Phosphate [Mass/Vol] 3.2 mg/dL Normal 2.5-4.5 [facility] Comment on above: Performed By: #### M G, PHOS, CMP, DIFF CBC ####[facility] [id number] [place] [address] [facility] Phosphate [Mass/Vol] Phosphate [Mass/vol ume] in Serum or Plasma 2.5-4.5 [facility] Platelet adequacy [Presence] in Blood by Light microscopyOrdered By: João Powell on 03-06-2024 Platelets LM Ql (Bld) Normal Normal [facility] Platelets LM Ql (Bld) Platelet adequacy [Presence] in Blood by Light microscopy Normal [facility] Platelet mean volume Auto (B ld) [Entitic vol]Ordered By: João Powell on 03-06-2024 Platelet mean volume (Bld) [Entitic vol] Platelet mean volume [Entitic volume] in Blood by Automated count 6.6-10.1 [facility] Platelet mean volume [Entiti c volume] in Blood by Automated countOrdered By: João Powell on 03-06-2024 Platelet mean volume (Bld) [Entitic vol] 8.1 fL Normal 6.6-10.1 [facility] Comment on above: Performed By: #### M G, PHOS, CMP, DIFF CBC ####[facility] [id number] Platelet morphology finding [Identifier] in BloodOrdered By: João Powell on 03-06-2024 Platelet morphology finding Nom (Bld) N/A [facility] Platelet morphology finding Nom (Bld) Platelet morphology finding [Identifier] in Blood [facility] Platelets Auto (Bld) [#/Vol] Ordered By: João Powell on 03-06-2024 Platelets (Bld) [#/Vol] Platelets [#/volume] in Blood by Automated count 150-450 [facility] Platelets Large [Presence] i n Blood by Light microscopyOrdered By: João Powell on 03-06-2024 Platelets Large LM Ql (Bld) Slight [facility] Platelets Large LM Ql (Bld) Platelets Large [Presence] in Blood by Light microscopy [facility] Platelets [#/volume] in Bloo d by Automated countOrdered By: João Powell on 03-06-2024 Platelets (Bld) [#/Vol] 325 10*3/uL Normal 150-450 [facility] Comment on above: Performed By: #### M G, PHOS, CMP, DIFF CBC ####[facility] [id number] [place] [id number] [facility] Polychromasia [Presence] in Blood by Light microscopyOrdered By: João Powell on 03-06-2024 Polychromasia LM Ql (Bld) Slight [facility] Polychromasia LM Ql (Bld) Polychromasia [Presence] in Blood by Light microscopy [facility] Potassium [Moles/volume] in Serum or PlasmaOrdered By: João Powell on 03-06-2024 Potassium [Moles/Vol] 4.2 mmol/L Normal 3.5-5.1 [facility] Comment on above: Performed By: #### M G, PHOS, CMP, DIFF CBC ####[place] [id number] Potassium [Moles/Vol] Potassium [Moles/v olume] in Serum or Plasma 3.5-5.1 [facility] Protein [Mass/volume] in Ser um or PlasmaOrdered By: João Powell on 03-06-2024 Protein [Mass/Vol] 6.1 g/dL Low 6.4-8.[address] [facility] Comment on above: Performed By: #### M G, PHOS, CMP, DIFF CBC ####[place] [address] Protein [Mass/Vol] Protein [Mass/volume ] in Serum or Plasma Low 6.4-8.9 [facility] RBC Auto (Bld) [#/Vol]Ordere d By: João Powell on 03-06-2024 RBC (Bld) [#/Vol] Erythrocytes [#/volu me] in Blood by Automated count Low 3.90-5.60 [facility] RBC morphologyOrdered By: Derek Powell on 03-06-2024 RBC morphology finding Nom (Bld) N/A [facility] Segmented neutrophils/100 WB C Manual cnt (Bld)Ordered By: João Powell on 03-06-2024 Segmented neutrophils/100 WBC (Bld) Manual blood segmented neutrophils/100 leukocytes High 50-70 [facility] Serum globulin measurement b y calculation (mass/volume)Ordered By: João Powell on 03-06-2024 Globulin (S) [Mass/Vol] 2.8 g/dL Normal [facility] Comment on above: Performed By: #### M G, PHOS, CMP, DIFF CBC ####[place] [id number] Serum or plasma albumin/glob ulin mass ratioOrdered By: João Powell on 03-06-2024 Albumin/Globulin [Mass ratio] 1.2 {ratio} Normal [facility] Comment on above: Performed By: #### M G, PHOS, CMP, DIFF CBC ####[place] [id number] [facility] Albumin/Globulin [Mass ratio] Serum or plasma albumin/globulin mass ratio [facility] Serum or plasma anion gap de terminationOrdered By: João Powell on 03-06-2024 Anion gap [Moles/Vol] 9.9 mmol/L Normal 6.0-15.0 [facility] Comment on above: Performed By: #### M G, PHOS, CMP, DIFF CBC ####[address] Anion gap [Moles/Vol] Serum or plasma an ion gap determination 6.0-15.0 [facility] Sodium [Moles/volume] in Ser um or PlasmaOrdered By: João Powell on 03-06-2024 Sodium [Moles/Vol] 137 mmol/L Normal 136-[address] [facility] Comment on above: Performed By: #### M G, PHOS, CMP, DIFF CBC ####[place] [id number] [facility] Sodium [Moles/Vol] Sodium [Moles/volume ] in Serum or Plasma 136-145 [facility] Teardrop cell detectionOrder ed By: João Powell on 03-06-2024 Dacrocytes LM Ql (Bld) Slight [facility] Urea nitrogen [Mass/volume] in Serum or PlasmaOrdered By: João Powell on 03-06-2024 Urea nitrogen [Mass/Vol] 17 mg/dL Normal 7-25 [facility] Comment on above: Performed By: #### M G, PHOS, CMP, DIFF CBC ####[place] [id number] [facility] Urea nitrogen [Mass/Vol] Urea nitrogen [Mass/volume] in Serum or Plasma 12-27 [facility] WBC Auto (Bld) [#/Vol]Ordere d By: João Powell on 03-06-2024 WBC (Bld) [#/Vol] Leukocytes [#/volume ] in Blood by Automated count 4.1-10.5 [facility] Complete Blood Count Auto Di ffon 03-05-2024 Basophils (Bld) [#/Vol] 0.1 10*3/uL Normal 0.0-0.2 [facility] Comment on above: Result Comment: PERF ORMED BY:[address] [place], [place] [phone] MEDICAL DIRECTORCLIFFORD LOBATO M.D. Performed By: #### P HOS, MG, CBC, CMP ####[address] Basophils/100 WBC (Bld) 1.1 % Normal . [facility] Comment on above: Performed By: #### P HOS, MG, CBC, CMP ####[address] Eosinophils (Bld) [#/Vol] 0.2 10*3/uL Normal 0.0-0.45 [facility] Comment on above: Performed By: #### P HOS, MG, CBC, CMP ####[place] [id number] [facility] Eosinophils/100 WBC (Bld) 2.8 % Normal . [facility] [facility] Comment on above: Performed By: #### P HOS, MG, CBC, CMP ####[place] [id number] [facility] Erythrocyte distribution width (RBC) [Ratio] 21.4 % High 12.0-14.8 The [facility] Comment on above: Performed By: #### P HOS, MG, CBC, CMP ####[place] [id number] [facility] Hematocrit (Bld) [Volume fraction] 26.8 % Low 38.8-50.0 The [facility] Comment on above: Performed By: #### P HOS, MG, CBC, CMP ####[address] Hemoglobin (Bld) [Mass/Vol] 8.6 g/dL Low 13.0-17.0 The [facility] Comment on above: Performed By: #### P HOS, MG, CBC, CMP ####[address] Lymphocytes (Bld) [#/Vol] 1.3 10*3/uL Normal 1.00-4.8 The [facility] Comment on above: Performed By: #### P HOS, MG, CBC, CMP ####[address] Lymphocytes/100 WBC (Bld) 16.1 % Normal . [facility] Comment on above: Performed By: #### P HOS, MG, CBC, CMP ####[address] MCH (RBC) [Entitic mass] 22.4 pg Low 27.5-35.2 The [facility] Comment on above: Performed By: #### P HOS, MG, CBC, CMP ####[address] MCV (RBC) [Entitic vol] 70.1 fL Low 83.5-101 The [facility] Comment on above: Performed By: #### P HOS, MG, CBC, CMP ####[address] Mean Corpuscular HGB Conc 31.9 g/dL Low 32.5-35.6 The [facility] Comment on above: Performed By: #### P HOS, MG, CBC, CMP ####[address] Monocytes (Bld) [#/Vol] 1.0 10*3/uL High 0.0-0.8 The [facility] Comment on above: Performed By: #### P HOS, MG, CBC, CMP ####[address] Monocytes/100 WBC (Bld) 12.4 % Normal . [facility] Comment on above: Performed By: #### P HOS, MG, CBC, CMP ####[address] Neutrophils (Bld) [#/Vol] 5.6 10*3/uL Normal 1.8-7.7 The [facility] Comment on above: Performed By: #### P HOS, MG, CBC, CMP ####[address] Neutrophils/100 WBC (Bld) 67.6 % Normal . [facility] Comment on above: Performed By: #### P HOS, MG, CBC, CMP ####[address] NRBC% 0.0 /100{WBC} Normal 0-0.[address] [facility] Comment on above: Performed By: #### P HOS, MG, CBC, CMP ####[address] Platelet mean volume (Bld) [Entitic vol] 7.9 fL Normal 6.6-10.1 The [facility] Comment on above: Performed By: #### P HOS, MG, CBC, CMP ####[address] Platelets (Bld) [#/Vol] 361 10*3/uL Normal 150-450 The [facility] Comment on above: Performed By: #### P HOS, MG, CBC, CMP ####[address] RBC (Bld) [#/Vol] 3.83 10*6/uL Low 3.90-5.60 The [facility] Comment on above: Performed By: #### P HOS, MG, CBC, CMP ####[address] WBC (Bld) [#/Vol] 8.3 10*3/uL Normal 4.1-10.5 The [facility] Comment on above: Performed By: #### P HOS, MG, CBC, CMP ####[address] Comprehensive Metabolic Pane guy 03-05-2024 Albumin [Mass/Vol] 3.3 g/dL Low 3.5-5.7 The [facility] Comment on above: Performed By: #### P HOS, MG, CBC, CMP ####[address] Albumin/Globulin [Mass ratio] 1.2 {ratio} Normal The [facility] Comment on above: Performed By: #### P HOS, MG, CBC, CMP ####[address] ALP [Catalytic activity/Vol] 98 U/L Normal 34-104 [facility] Comment on above: Performed By: #### P HOS, MG, CBC, CMP ####[address] ALT [Catalytic activity/Vol] 10 U/L Normal 7-52 [facility] Comment on above: Performed By: #### P HOS, MG, CBC, CMP ####[address] Anion gap [Moles/Vol] 9.9 mmol/L Normal 6.0-15.0 The [facility] Comment on above: Performed By: #### P HOS, MG, CBC, CMP ####[address] AST [Catalytic activity/Vol] 14 U/L Normal 13-39 The [facility] Comment on above: Performed By: #### P HOS, MG, CBC, CMP ####[address] Bilirubin [Mass/Vol] 0.3 mg/dL Normal 0.3-1.0 The [facility] Comment on above: Performed By: #### P HOS, MG, CBC, CMP ####[address] [place] [address] [place] Calcium [Mass/Vol] 8.6 mg/dL Normal 8.6-10.3 The [facility] Comment on above: Performed By: #### P HOS, MG, CBC, CMP ####[address] Chloride [Moles/Vol] 107 mmol/L Normal 98-107 The [facility] Comment on above: Performed By: #### P HOS, MG, CBC, CMP ####[address] CO2 [Moles/Vol] 25.2 mmol/L Normal 21.0-31.0 The [facility] Comment on above: Performed By: #### P HOS, MG, CBC, CMP ####[address] Creatinine [Mass/Vol] 1.49 mg/dL High 0.70-1.30 The [facility] Comment on above: Performed By: #### P HOS, MG, CBC, CMP ####[address] Creatinine Clr Calc Pharmacy 59.31 Normal The [facility] Comment on above: Performed By: #### P HOS, MG, CBC, CMP ####[address] GFR/1.73 sq M.predicted MDRD (S/P/Bld) [Vol rate/Area] 54.062 mL/min/{1.73_m2} Normal The [facility] Comment on above: Performed By: #### P HOS, MG, CBC, CMP ####[address] Globulin (S) [Mass/Vol] 2.8 g/dL Normal The [facility] Comment on above: Performed By: #### P HOS, MG, CBC, CMP ####[address] Glucose [Mass/Vol] 105 mg/dL High 70-100 The [facility] Comment on above: Result Comment: Alee goel Glucose Reference Range is dependent on time and content of last meal. Glucose of more than 200 mg/dL in a nonstressed, ambulatory subject supports the diagnosis of Diabetes Mellitus. ADA recommended reference range Performed By: #### P HOS, MG, CBC, CMP ####[facility] [place] [address] [facility] Potassium [Moles/Vol] 4.1 mmol/L Normal 3.5-5.1 The [facility] Comment on above: Performed By: #### P HOS, MG, CBC, CMP ####[address] [address] [facility] Protein [Mass/Vol] 6.1 g/dL Low 6.4-8.9 The [facility] Comment on above: Performed By: #### P HOS, MG, CBC, CMP ####[address] [address] [facility] Sodium [Moles/Vol] 138 mmol/L Normal 136-145 The [facility] Comment on above: Performed By: #### P HOS, MG, CBC, CMP ####[address] [address] [facility] Urea nitrogen [Mass/Vol] 24 mg/dL Normal 7-25 The [facility] Comment on above: Performed By: #### P HOS, MG, CBC, CMP ####[address] [address] [facility] Glucose Poct Glucometerson 1 Glucose [Mass/Vol] 151 mg/dL Normal The [facility] Comment on above: Result Comment: [facility] Glucose Reference Range is dependent on time and content of last meal. Glucose of more than 200 mg/dL in a nonstressed, ambulatory subject supports the diagnosis of Diabetes Mellitus.PERFORMED BY:[address] [place], [place] [phone] MEDICAL DIRECTORCLIFFORD LOBATO M.D. Performed By: #### G LULS ####Point of Care testing, Glucose [Mass/Vol] 106 mg/dL Normal The [facility] Comment on above: Result Comment: [place] om Glucose Reference Range is dependent on time and content of last meal. Glucose of more than 200 mg/dL in a nonstressed, ambulatory subject supports the diagnosis of Diabetes Mellitus.PERFORMED BY:[place] [address] [place], [place] [phone] MEDICAL DIRECTORCLIFFORD LOBATO M.D. Performed By: #### G LULS ####Point of Care testing, Glucose [Mass/Vol] 132 mg/dL Normal The [facility] Comment on above: Result Comment: [place] Glucose Reference Range is dependent on time and content of last meal. Glucose of more than 200 mg/dL in a nonstressed, ambulatory subject supports the diagnosis of Diabetes Mellitus.PERFORMED BY:[place] [address] [place], [place] [phone] MEDICAL DIRECTORCLIFFORD LOBATO M.D. Performed By: #### G LULS ####Point of Care testing, Commemt1 Glu2: Cleaned Meter Normal The [facility] Comment on above: Result Comment: PERF ORMED BY:[place] [address] [place], [place] [phone] MEDICAL DIRECTORCLIFFORD LOBATO M.D. Performed By: #### G LULS ####Point of Care testing, Glucose [Mass/Vol] 151 mg/dL Normal The [facility] Comment on above: Result Comment: [facility] Glucose Reference Range is dependent on time and content of last meal. Glucose of more than 200 mg/dL in a nonstressed, ambulatory subject supports the diagnosis of Diabetes Mellitus. Performed By: #### G LULS ####Point of Care testing, Magnesiumon 03-05-2024 Magnesium [Mass/Vol] 1.4 mg/dL Low 1.9-2.7 [facility] Comment on above: Result Comment: PERF ORMED BY:[place] [address] [place], [place] [phone] MEDICAL DIRECTORCLIFFORD LOBATO M.D. Performed By: #### P HOS, MG, CBC, CMP ####[address] No Panel InformationOrdered By: João Powell on 03-05-2024 Bedside Glucose Comment Glu2: cleaned meter [facility] Glu2: cleaned meter [facility] Phosphoruson 03-05-2024 Phosphate [Mass/Vol] 3.1 mg/dL Normal 2.5-4.5 The [facility] Comment on above: Performed By: #### P HOS, MG, CBC, CMP ####[place] [id number] [facility] US carotid doppler BIon 10-0 US carotid doppler BI Normal [facility] ABO/Rh Retypeon 03-04-2024 ABO/RH Recheck Result Positive Normal The [facility] Comment on above: Result Comment: PERF ORMED BY:[address] [place], [place] [phone] MEDICAL DIRECTORCLIFFORD LOBATO M.D. Comprehensive Metabolic Pane guy 03-04-2024 Albumin [Mass/Vol] 3.3 g/dL Low 3.5-5.7 The [facility] Comment on above: Performed By: #### M G, PHOS, SCAN CBC, CMP ####[address] Albumin/Globulin [Mass ratio] 1.1 {ratio} Normal The [facility] Comment on above: Performed By: #### M G, PHOS, SCAN CBC, CMP ####[address] ALP [Catalytic activity/Vol] 105 U/L High 34-104 [facility] Comment on above: Performed By: #### M G, PHOS, SCAN CBC, CMP ####[address] ALT [Catalytic activity/Vol] 9 U/L Normal 7-52 [facility] Comment on above: Performed By: #### M G, PHOS, SCAN CBC, CMP ####[place] [id number] [facility] Anion gap [Moles/Vol] 11.1 mmol/L Normal 6.0-15.0 Th e [facility] Comment on above: Performed By: #### M G, PHOS, SCAN CBC, CMP ####[place] [id number] [facility] AST [Catalytic activity/Vol] 11 U/L Low 13-39 The [facility] Comment on above: Performed By: #### M G, PHOS, SCAN CBC, CMP ####[address] Bilirubin [Mass/Vol] 0.2 mg/dL Low 0.3-1.0 The [facility] Comment on above: Performed By: #### M G, PHOS, SCAN CBC, CMP ####[address] Calcium [Mass/Vol] 8.3 mg/dL Low 8.6-10.3 The [facility] Comment on above: Performed By: #### M G, PHOS, SCAN CBC, CMP ####[place] [id number] [facility] Chloride [Moles/Vol] 104 mmol/L Normal 98-107 The [facility] Comment on above: Performed By: #### M G, PHOS, SCAN CBC, CMP ####[place] [id number] [facility] CO2 [Moles/Vol] 27.6 mmol/L Normal 21.0-31.0 The [facility] Comment on above: Performed By: #### M G, PHOS, SCAN CBC, CMP ####[place] [id number] [facility] Creatinine [Mass/Vol] 1.83 mg/dL High 0.70-1.30 The [facility] Comment on above: Performed By: #### M G, PHOS, SCAN CBC, CMP ####[place] [id number] [facility] Creatinine Clr Calc Pharmacy 48.29 Normal The [facility] Comment on above: Performed By: #### M G, PHOS, SCAN CBC, CMP ####[address] GFR/1.73 sq M.predicted MDRD (S/P/Bld) [Vol rate/Area] 42.245 mL/min/{1.73_m2} Normal The [facility] Comment on above: Performed By: #### M G, PHOS, SCAN CBC, CMP ####[address] Globulin (S) [Mass/Vol] 2.9 g/dL Normal The [facility] Comment on above: Performed By: #### M G, PHOS, SCAN CBC, CMP ####[address] Glucose [Mass/Vol] 150 mg/dL High 70-100 The [facility] Comment on above: Result Comment: [facility] Glucose Reference Range is dependent on time and content of last meal. Glucose of more than 200 mg/dL in a nonstressed, ambulatory subject supports the diagnosis of Diabetes Mellitus. ADA recommended reference range Performed By: #### M G, PHOS, SCAN CBC, CMP ####[address] Potassium [Moles/Vol] 3.7 mmol/L Normal 3.5-5.1 The [facility] Comment on above: Performed By: #### M G, PHOS, SCAN CBC, CMP ####[address] Protein [Mass/Vol] 6.2 g/dL Low 6.4-8.9 The [facility] Comment on above: Performed By: #### M G, PHOS, SCAN CBC, CMP ####[address] Sodium [Moles/Vol] 139 mmol/L Normal 136-145 The [facility] Comment on above: Performed By: #### M G, PHOS, SCAN CBC, CMP ####[address] Urea nitrogen [Mass/Vol] 36 mg/dL High 7-25 The [facility] Comment on above: Performed By: #### M G, PHOS, SCAN CBC, CMP ####[facility] [id number] [place] [address] [facility] ECH echo transthoracicon ECH echo transthoracic Normal Th e [facility] Ferritinon 03-04-2024 Ferritin Normal 23.9-336.2 The [facility] Comment on above: Order Comment: Comme nt add Result Comment: Spec imen hemolyzed, redraw requested Performed By: #### T SH3, LILA, FE and TIBC, [id number] ####[facility] [address] [place] [address] [facility] Ferritin [Mass/volume] in Se rum or PlasmaOrdered By: João Powell on 03-04-2024 Ferritin [Mass/Vol] 7.7 ng/mL Low 23.9-336.2 [facility] Ferritin [Mass/Vol] Ferritin [Mass/volum e] in Serum or Plasma Low 23.9-336.2 [facility] Folate [Mass/volume] in Seru m or PlasmaOrdered By: João Powell on 03-04-2024 Folate [Mass/Vol] 7.8 ng/mL >5.9 [facility] Comment on above: Folate reference ran ge: >5.9 ng/mlThe WHO technical consultation on folate and vitamin [id number] has determined that folate concentrations lessthan 4 ng/ml are considered deficient. Folate [Mass/Vol] Folate [Mass/volume] in Serum or Plasma >5.9 [facility] Comment on above: Folate reference ran ge: >5.9 ng/mlThe WHO technical consultation on folate and vitamin [id number] has determined that folate concentrations lessthan 4 ng/ml are considered deficient. Glucose Poct Glucometerson 0 03-04-2024 Commemt1 Glu2: Cleaned Meter Normal [facility] Comment on above: Result Comment: PERF ORMED BY:[address] [place], [place] [phone] MEDICAL DIRECTORCLIFFORD LOBATO M.D. Performed By: #### G LULS ####Point of Care testing, Glucose [Mass/Vol] 213 mg/dL Normal The [facility] Comment on above: Result Comment: [place] om Glucose Reference Range is dependent on time and content of last meal. Glucose of more than 200 mg/dL in a nonstressed, ambulatory subject supports the diagnosis of Diabetes Mellitus. Performed By: #### G LULS ####Point of Care testing, Glucose [Mass/Vol] 279 mg/dL Normal The [facility] Comment on above: Result Comment: [place] om Glucose Reference Range is dependent on time and content of last meal. Glucose of more than 200 mg/dL in a nonstressed, ambulatory subject supports the diagnosis of Diabetes Mellitus.PERFORMED BY:[place] [address] [place], [place] [phone] MEDICAL DIRECTORCLIFFORD LOBATO M.D. Performed By: #### G LULS ####Point of Care testing, Glucose [Mass/Vol] 236 mg/dL Normal The [facility] Comment on above: Result Comment: [place] om Glucose Reference Range is dependent on time and content of last meal. Glucose of more than 200 mg/dL in a nonstressed, ambulatory subject supports the diagnosis of Diabetes Mellitus.PERFORMED BY:[place] [address] [place], [place] [phone] MEDICAL DIRECTORCLIFFORD LOBATO M.D. Performed By: #### G LULS ####Point of Care testing, Glucose [Mass/Vol] 242 mg/dL Normal The [facility] Comment on above: Result Comment: [place] om Glucose Reference Range is dependent on time and content of last meal. Glucose of more than 200 mg/dL in a nonstressed, ambulatory subject supports the diagnosis of Diabetes Mellitus.PERFORMED BY:[place] [address] [place], [place] [phone] MEDICAL DIRECTORCLIFFORD LOBATO M.D. Performed By: #### G LULS ####Point of Care testing, Iron [Mass/volume] in Serum or PlasmaOrdered By: João Powell on 03-04-2024 Iron [Mass/Vol] 13 ug/dL Low 50-212 [facility] Comment on above: Order Comment: Comme nt add Performed By: #### T SH3, LILA, FE and TIBC, [id number] ####[place] [address] [place] [address] [facility] Iron [Mass/Vol] Iron [Mass/volume] i n Serum or Plasma Low 50-212 [facility] Iron and TIBC Profileon 02-05 % Iron Saturation 3.2 % Low 20-50 The [facility] Comment on above: Order Comment: Comme nt add Performed By: #### T SH3, LILA, FE and TIBC, [id number] ####[place] [address] [place] [id number] [facility] Total Iron Binding Capacity 403 ug/dL Normal 255-450 The [facility] Comment on above: Order Comment: Comme nt add Performed By: #### T SH3, LILA, FE and TIBC, [id number] ####[place] [id number] [facility] Iron binding capacity [Mass/ volume] in Serum or PlasmaOrdered By: João Powell on 03-04-2024 Iron binding capacity [Mass/Vol] 403 ug/dL 255-450 [facility] Iron saturation [Mass Fracti on] in Serum or PlasmaOrdered By: Mohamad Andre on 03-04-2024 Iron saturation [Mass fraction] 3.2 % Low 20-50 [facility] LeukoReduced RBCon LeukoReduced RBC TRANSFUSED 03/04/24 1657 Normal [facility] MR angio MR brain w/oon 02-05 MR angio MR brain w/o Normal [facility] Magnesiumon 03-04-2024 Magnesium [Mass/Vol] 1.3 mg/dL Low 1.9-2.7 [facility] Comment on above: Result Comment: PERF ORMED BY:[address] [place], [place] [phone] MEDICAL DIRECTORJIANLAN SUN M.D. Performed By: #### M G, PHOS, SCAN CBC, CMP ####[address] Ovalocyte detectionOrdered B y: João Powell on 03-04-2024 Ovalocytes LM Ql (Bld) S[facility] Ovalocytes [Presence] in Blo od by Light microscopyOrdered By: João Powell on 03-04-2024 Ovalocytes LM Ql (Bld) Ovalocyte detection [facility] Phosphoruson 03-04-2024 Phosphate [Mass/Vol] 3.5 mg/dL Normal 2.5-4.5 [facility] Comment on above: Performed By: #### M G, PHOS, SCAN CBC, CMP ####[address] Redraw Ferritinon 03-04-2024 Redraw Ferritin 7.7 ng/mL Low 23.9-336.2 [facility] Comment on above: Performed By: #### T SH3, REDRAW B12, REDRAW LILA, REDRAW FOLATE ####[address] Redraw Folateon 03-04-2024 Redraw Folate 7.8 ng/mL Normal >5.[address] [facility] Comment on above: Result Comment: Aure te reference range: >5.9 ng/ml The WHO technical consultation on folate and vitamin b12 deficiencies has determined that folate concentrations less than 4 ng/ml are considered deficient. Performed By: #### T SH3, REDRAW B12, REDRAW LILA, REDRAW FOLATE ####[address] Scan and CBCon 03-04-2024 Anisocytosis Ql (Bld) Moderate Normal [facility] Comment on above: Performed By: #### M G, PHOS, SCAN CBC, CMP ####[address] Basophils (Bld) [#/Vol] 0.1 10*3/uL Normal 0.0-0.2 [facility] Comment on above: Performed By: #### M G, PHOS, SCAN CBC, CMP ####[address] Basophils/100 WBC (Bld) 2.4 % Normal . [facility] Comment on above: Performed By: #### M G, PHOS, SCAN CBC, CMP ####[address] Eosinophils (Bld) [#/Vol] 0.2 10*3/uL Normal 0.0-0.45 [facility] Comment on above: Performed By: #### M G, PHOS, SCAN CBC, CMP ####[address] Eosinophils/100 WBC (Bld) 3.6 % Normal . [facility] Comment on above: Performed By: #### M G, PHOS, SCAN CBC, CMP ####[address] Erythrocyte distribution width (RBC) [Ratio] 20.8 % High 12.0-14.8 [facility] Comment on above: Performed By: #### M G, PHOS, SCAN CBC, CMP ####[address] Hematocrit (Bld) [Volume fraction] 23.7 % Low 38.8-50.0 [facility] Comment on above: Performed By: #### M G, PHOS, SCAN CBC, CMP ####[address] Hemoglobin (Bld) [Mass/Vol] 7.4 g/dL Low 13.0-17.0 [facility] Comment on above: Performed By: #### M G, PHOS, SCAN CBC, CMP ####[address] Hypochromasia Slight Normal The [facility] Comment on above: Performed By: #### M G, PHOS, SCAN CBC, CMP ####[address] Lymphocytes (Bld) [#/Vol] 1.3 10*3/uL Normal 1.00-4.8 [facility] Comment on above: Performed By: #### M G, PHOS, SCAN CBC, CMP ####[address] Lymphocytes/100 WBC (Bld) 22.8 % Normal . [facility] Comment on above: Performed By: #### M G, PHOS, SCAN CBC, CMP ####[address] MCH (RBC) [Entitic mass] 21.8 pg Low 27.5-35.2 [facility] Comment on above: Performed By: #### M G, PHOS, SCAN CBC, CMP ####[address] MCV (RBC) [Entitic vol] 69.5 fL Low 83.5-101 [facility] Comment on above: Performed By: #### M G, PHOS, SCAN CBC, CMP ####[address] Mean Corpuscular HGB Conc 31.3 g/dL Low 32.5-35.6 [facility] Comment on above: Performed By: #### M G, PHOS, SCAN CBC, CMP ####[address] Monocytes (Bld) [#/Vol] 0.9 10*3/uL High 0.0-0.8 [facility] Comment on above: Performed By: #### M G, PHOS, SCAN CBC, CMP ####[address] Monocytes/100 WBC (Bld) 16.7 % Normal . [facility] Comment on above: Performed By: #### M G, PHOS, SCAN CBC, CMP ####[address] Neutrophils (Bld) [#/Vol] 3.0 10*3/uL Normal 1.8-7.7 [facility] Comment on above: Performed By: #### M G, PHOS, SCAN CBC, CMP ####[place] [id number] [facility] Neutrophils/100 WBC (Bld) 54.5 % Normal . [facility] Comment on above: Performed By: #### M G, PHOS, SCAN CBC, CMP ####[place] [id number] [facility] NRBC% 0.3 /100{WBC} Normal 0-0.[address] [facility] Comment on above: Performed By: #### M G, PHOS, SCAN CBC, CMP ####[place] [id number] [facility] Ovalocytes Slight Normal [facility] Comment on above: Performed By: #### M G, PHOS, SCAN CBC, CMP ####[place] [id number] [facility] Platelet Estimate Normal Normal Normal The [facility] Comment on above: Performed By: #### M G, PHOS, SCAN CBC, CMP ####[place] [id number] [facility] Platelet mean volume (Bld) [Entitic vol] 8.2 fL Normal 6.6-10.1 The [facility] Comment on above: Performed By: #### M G, PHOS, SCAN CBC, CMP ####[place] [id number] [facility] Platelet Morphology Normal Normal Normal [facility] Comment on above: Result Comment: PERF ORMED BY:[address] [place], [place] [phone] MEDICAL DIRECTORCLIFFORD LOBATO M.D. Performed By: #### M G, PHOS, SCAN CBC, CMP ####[address] [address] [facility] Platelets (Bld) [#/Vol] 394 10*3/uL Normal 150-450 [facility] Comment on above: Performed By: #### M G, PHOS, SCAN CBC, CMP ####[place] [address] [place] [address] [facility] Polychromasia Slight Normal The [facility] Comment on above: Performed By: #### M G, PHOS, SCAN CBC, CMP ####[facility] [place] [address] [facility] RBC (Bld) [#/Vol] 3.41 10*6/uL Low 3.90-5.60 The [facility] Comment on above: Performed By: #### M G, PHOS, SCAN CBC, CMP ####[place] [address] [place] [phone] [facility] WBC (Bld) [#/Vol] 5.5 10*3/uL Normal 4.1-10.5 [facility] Comment on above: Performed By: #### M G, PHOS, SCAN CBC, CMP ####[address] Serum or plasma iron binding capacity measurement (mass/volume)Ordered By: João Powell on 03-04-2024 Iron binding capacity [Mass/Vol] Iron binding capacity [Mass/volume] in Serum or Plasma 255-450 [facility] Serum or plasma iron saturat ion measurement (mass fraction)Ordered By: João Powell on 03-04-2024 Iron saturation [Mass fraction] Iron saturation [Mass Fraction] in Serum or Plasma Low 20-50 [facility] Thyroid Stimulating Hormoneo n 03-04-2024 Thyroid Stimulating Hormone Normal 0.45-5.33 [facility] Comment on above: Order Comment: Comme nt add Result Comment: Spec imen hemolyzed, redraw requestedPERFORMED BY:[address] [place], [place] [phone] MEDICAL DIRECTORCLIFFORD LOBATO M.D. Performed By: #### T SH3, LILA, FE and TIBC, [id number] ####[place] [phone] [facility] Thyrotropin [Units/volume] i n Serum or PlasmaOrdered By: João Powell on 03-04-2024 TSH Qn 2.90 m[IU]/L Normal 0.45-5.33 [facility] Comment on above: Result Comment: PERF ORMED BY:[place] [address] [address] [place], [place] [phone] MEDICAL DIRECTORCLIFFORD LOBATO M.D. Performed By: #### T SH3, REDRAW B12, REDRAW LILA, REDRAW FOLATE ####[address] [address] [facility] TSH Qn Thyrotropin [Units/volume] in Serum or Plasma 0.45-5.33 [facility] Transferrin [Mass/volume] in Serum or PlasmaOrdered By: João Powell on 03-04-2024 Transferrin [Mass/Vol] 288 mg/dL Normal 203-362 [facility] Comment on above: Order Comment: Comme nt add Performed By: #### T SH3, LILA, FE and TIBC, [id number] ####[address] [address] [facility] Transferrin [Mass/Vol] Transferrin [Mass /volume] in Serum or Plasma 203-362 [facility] Type and Screenon 03-04-2024 ABO and Rh group Nom (Bld) Blood group O Rh(D) positive Normal [facility] Comment on above: Order Comment: Numbe r of units to transfuse now? 1 Result Comment: PERF ORMED BY:[place] [address] [place], [place] [phone] MEDICAL DIRECTORCLIFFORD LOBATO M.D. Vit. B12/Folate Profileon Folate Normal >5.9 [facility] Comment on above: Order Comment: Comme nt add Result Comment: Spec imen hemolyzed, redraw requested Folate reference range: >5.9 ng/ml The WHO technical consultation on folate and vitamin b12 deficiencies has determined that folate concentrations less than 4 ng/ml are considered deficient.PERFORMED BY:[place] [address] [place], [place] [phone] MEDICAL DIRECTORCLIFFORD LOBATO M.D. Performed By: #### T SH3, LILA, FE and TIBC, [id number] ####[place] [address] Vitamin B12 Normal 180-4 [facility] Comment on above: Order Comment: Comme nt add Result Comment: Spec imen hemolyzed, redraw requested Performed By: #### T SH3, LILA, FE and TIBC, [id number] ####[address] [address] [facility] Vitamin B12 ser/plasOrdered By: João Powell on 03-04-2024 Cobalamin (Vitamin B12) [Mass/Vol] 170 pg/mL Low 180- [facility] Comment on above: Performed By: #### T SH3, REDRAW B12, REDRAW LILA, REDRAW FOLATE ####[address] Cobalamin (Vitamin B12) [Mass/Vol] Vitamin B12 ser/plas Low 180 [facility] XR knee RT 2Von 03-04-2024 XR knee RT 2V Normal [facility] Anisocytosis [Presence] in B lood by Light microscopyOrdered By: Kait Dan on 03-03-2024 Anisocytosis Ql (Bld) Marked Normal [facility] Comment on above: Performed By: #### H S TROP, SCAN CBC, BNP, BMP ####[address] Appearance of UrineOrdered B y: Kait Dan on 03-03-2024 Appearance (U) Urine appearance Clear [facility] Automated basophil %Ordered By: Kait Dan on 03-03-2024 Basophils/100 WBC (Bld) 1.7 % Normal . [facility] Comment on above: Performed By: #### H S TROP, SCAN CBC, BNP, BMP ####[place] [phone] [facility] Automated basophil countOrde red By: Kait Dan on 03-03-2024 Basophils (Bld) [#/Vol] 0.1 10*3/uL Normal 0.0-0.2 [facility] Comment on above: Performed By: #### H S TROP, SCAN CBC, BNP, BMP ####[address] Automated blood monocyte cou ntOrdered By: Kait Dan on 03-03-2024 Monocytes (Bld) [#/Vol] 0.8 10*3/uL Normal 0.0-0.8 [facility] Comment on above: Performed By: #### H S TROP, SCAN CBC, BNP, BMP ####[address] Automated eosinophil %Ordere d By: Kait Dan on 03-03-2024 Eosinophils/100 WBC (Bld) 3.2 % Normal . [facility] Comment on above: Performed By: #### H S TROP, SCAN CBC, BNP, BMP ####[address] Automated eosinophil countOr dered By: aKit Dan on 03-03-2024 Eosinophils (Bld) [#/Vol] 0.2 10*3/uL Normal 0.0-0.45 [facility] Comment on above: Performed By: #### H S TROP, SCAN CBC, BNP, BMP ####[address] Automated monocyte %Ordered By: Kait Dan on 03-03-2024 Monocytes/100 WBC (Bld) 11.3 % Normal . [facility] Comment on above: Performed By: #### H S TROP, SCAN CBC, BNP, BMP ####[address] Automated neutrophil %Ordere d By: Kait Dan on 03-03-2024 Neutrophils/100 WBC (Bld) 65.6 % Normal . [facility] Comment on above: Performed By: #### H S TROP, SCAN CBC, BNP, BMP ####[address] BNP ser/plasOrdered By: Delfina Dan on 03-03-2024 Natriuretic peptide B (Bld) [Mass/Vol] 23.0 pg/mL Normal 5-100 [facility] Comment on above: Result Comment: PERF ORMED BY:[address] [place], [place] [phone] MEDICAL DIRECTORCLIFFORD LOBATO M.D. Performed By: #### H S TROP, SCAN CBC, BNP, BMP ####[place] [address] [place] [address] [facility] Basic Metabolic Panelon 02-04 Creatinine Clr Calc Pharmacy 44.86 Normal [facility] Comment on above: Result Comment: PERF ORMED BY:[address] LINMaryH[place], [place] [phone] MEDICAL DIRECTORCLIFFORD LOBATO M.D. Performed By: #### H S TROP, SCAN CBC, BNP, BMP ####[place] [phone] [facility] GFR/1.73 sq M.predicted MDRD (S/P/Bld) [Vol rate/Area] 38.669 mL/min/{1.73_m2} Normal The [facility] Comment on above: Performed By: #### H S TROP, SCAN CBC, BNP, BMP ####[place] [address] [place] [phone] [facility] Bilirubin Test strip Ql (U)O rdered By: Kait Dan on 03-03-2024 Bilirubin Ql (U) Negative Negative [facility] Bilirubin Ql (U) Bilirubin.total [Presence] in Urine by Test strip Negative [facility] COVID CepheidOrdered By: Jeremi Dan on 03-03-2024 SARS-CoV-2 (COVID-19) Ab IA Ql Negative Negative [facility] Comment on above: This is a duplicate Cepheid Xpert Xpress CoV-2/Flu/RSV Plus RNA by RT-PCR result to be used for statistical tracking purpose only. SARS-CoV-2 (COVID-19) RNA NELLY+probe Ql (Unsp spec) Normal [facility] Comment on above: Performed By: #### C EPHEID NEG, UA, COVID19 FLU RSV ####[facility] [id number] [place] [id number] [facility] SARS-CoV-2 (COVID-19) RNA NELLY+probe Ql (Unsp spec) Negative Normal Negative [facility] Comment on above: Result Comment: This is a duplicate Cepheid Xpert Xpress CoV-2/Flu/RSV Plus RNA by RT-PCR result to be used for statistical tracking purpose only.PERFORMED BY:[place] [address] [address] [place], [place] [phone] MEDICAL DIRECTORCLIFFORD LOBATO M.D. Performed By: #### C EPHEID NEG, UA, COVID19 FLU RSV ####[facility] [id number] [place] [phone] [facility] COVID Cepheid NegativeOrdere d By: Kait Dan on 03-03-2024 SARS-CoV-2 (COVID-19) Ab IA Ql COVID Cepheid Negative [facility] Comment on above: This is a duplicate Cepheid Xpert Xpress CoV-2/Flu/RSV Plus RNA by RT-PCR result to be used for statistical tracking purpose only. CT abdomen pelvis w conon CT abdomen pelvis w con Normal [facility] CT head/brain wo conon 03-03 CT head/brain wo con Normal [facility] Calcium [Mass/volume] in Ser um or PlasmaOrdered By: Kait Dan on 03-03-2024 Calcium [Mass/Vol] 8.6 mg/dL Normal 8.6-10.[address] [facility] Comment on above: Performed By: #### H S TROP, SCAN CBC, BNP, BMP ####[facility] [id number] [place] [id number] [facility] Capillary blood glucose ashley urement by glucometer (mass/volume)Ordered By: Kait Dan on 03-03-2024 Glucose [Mass/Vol] 167 mg/dL Normal [facility] Comment on above: Random Glucose Refer ence Range is dependent on time and content of last meal. Glucose of more than 200 mg/dL in a nonstressed, ambulatory subject supports the diagnosis of Diabetes Mellitus. Result Comment: [facility] Glucose Reference Range is dependent on time and content of last meal. Glucose of more than 200 mg/dL in a nonstressed, ambulatory subject supports the diagnosis of Diabetes Mellitus.PERFORMED BY:[id number] [place] [address] [place], [place] [phone] MEDICAL DIRECTORCLIFFORD LOBATO M.D. Performed By: #### G LULS ####Point of Care testing, Carbon dioxide, total [Moles /volume] in Serum or PlasmaOrdered By: Kait Dan on 03-03-2024 CO2 [Moles/Vol] 24.3 mmol/L Normal 21.0-31.0 [facility] Comment on above: Performed By: #### H S TROP, SCAN CBC, BNP, BMP ####[facility] [id number] [place] [id number] [place] Chloride [Moles/volume] in S ilia or PlasmaOrdered By: Kait Dan on 03-03-2024 Chloride [Moles/Vol] 103 mmol/L Normal 98-107 [facility] Comment on above: Performed By: #### H S TROP, SCAN CBC, BNP, BMP ####[facility] [id number] [place] [phone] [facility] Color Auto (U)Ordered By: Martha Dan on 03-03-2024 Color (U) Color of Urine by Auto Yellow [facility] Color of Urine by AutoOrdere d By: Kait Dan on 03-03-2024 Color (U) Colorless Normal Yellow [facility] Comment on above: Order Comment: Name Collection Type:: Clean-Voided Midstream Performed By: #### C EPHEID NEG, UA, COVID19 FLU RSV ####[facility] [id number] [place] [phone] [place] Creatinine [Mass/volume] in Serum or PlasmaOrdered By: Kait Dan on 03-03-2024 Creatinine [Mass/Vol] 1.97 mg/dL High 0.70-1.30 [facility] Comment on above: Performed By: #### H S TROP, SCAN CBC, BNP, BMP ####[facility] [place] [address] [facility] ECG 12 lead ECGon 03-03-2024 ECG 12 lead ECG Normal [facility] Erythrocyte distribution wid th [Ratio] by Automated countOrdered By: Kait Dan on 03-03-2024 Erythrocyte distribution width (RBC) [Ratio] 20.9 % High 12.0-14.8 [facility] Comment on above: Performed By: #### H S TROP, SCAN CBC, BNP, BMP ####[place] [address] [place] [phone] [facility] Erythrocytes [#/volume] in B lood by Automated countOrdered By: Kait Dan on 03-03-2024 RBC (Bld) [#/Vol] 3.58 10*6/uL Low 3.90-5.60 [facility] Comment on above: Performed By: #### H S TROP, SCAN CBC, BNP, BMP ####[place] [address] [place] [address] [facility] Glucose Poct Glucometerson 0 03-03-2024 Commemt1 Glu2: Cleaned Meter Normal [facility] Comment on above: Result Comment: PERF ORMED BY:[address] [place]UKULDarrianMaryH[place], [place] [phone] MEDICAL DIRECTORCLIFFORD LOBATO M.D. Performed By: #### G LULS ####Point of Care testing, Glucose [Mass/Vol] 204 mg/dL Normal [facility] Comment on above: Result Comment: [place] om Glucose Reference Range is dependent on time and content of last meal. Glucose of more than 200 mg/dL in a nonstressed, ambulatory subject supports the diagnosis of Diabetes Mellitus. Performed By: #### G LULS ####Point of Care testing, Glucose [Mass/volume] in Ser um or PlasmaOrdered By: Kait Dan on 03-03-2024 Glucose [Mass/Vol] 142 mg/dL High 70-[address] [facility] Comment on above: ADA recommended refe rence rangeRandom Glucose Reference Range is dependent on time and content of last meal. Glucose of more than 200 mg/dL in a nonstressed, ambulatory subject supports the diagnosis of Diabetes Mellitus. Result Comment: [place] Glucose Reference Range is dependent on time and content of last meal. Glucose of more than 200 mg/dL in a nonstressed, ambulatory subject supports the diagnosis of Diabetes Mellitus. ADA recommended reference range Performed By: #### H S TROP, SCAN CBC, BNP, BMP ####[facility] [place] [phone] [facility] Glucose [Mass/volume] in Uri ne by Test stripOrdered By: Kait Dan on 03-03-2024 Glucose Test strip (U) [Mass/Vol] 500 mg/dL High Normal [facility] Glucose Test strip (U) [Mass/Vol] Glucose [Mass/volume] in Urine by Test strip [facility] Hematocrit [Volume Fraction] of Blood by Automated countOrdered By: Kait Dan on 03-03-2024 Hematocrit (Bld) [Volume fraction] 24.7 % Low 38.8-50.0 [facility] Comment on above: Performed By: #### H S TROP, SCAN CBC, BNP, BMP ####[place] [address] [place] [phone] [facility] Hemoglobin Test strip Ql (U) Ordered By: Kait Dan on 03-03-2024 Hemoglobin Ql (U) Negative Negative [facility] Hemoglobin Ql (U) Hemoglobin [Presence ] in Urine by Test strip Negative [facility] Hemoglobin [Mass/volume] in BloodOrdered By: Kait Dan on 03-03-2024 Hemoglobin (Bld) [Mass/Vol] 7.8 g/dL Low 13.0-17.0 [facility] Comment on above: Performed By: #### H S TROP, SCAN CBC, BNP, BMP ####[place] [phone] [facility] Hypochromia LM Ql (Bld)Order ed By: Kait Dan on 03-03-2024 Hypochromia Ql (Bld) Moderate [facility] Ketones Test strip Ql (U)Ord ered By: Kait Dan on 03-03-2024 Ketones Ql (U) Ketones [Presence] i n Urine by Test strip Negative [facility] Ketones [Presence] in Urine by Test stripOrdered By: Kait Dan on 03-03-2024 Ketones Ql (U) Negative Normal Negative [facility] Comment on above: Order Comment: Name Collection Type:: Clean-Voided Midstream Performed By: #### C EPHEID NEG, UA, COVID19 FLU RSV ####[place] [address] [place] [phone] [facility] Leukocyte esterase [Presence ] in Urine by Test stripOrdered By: Kait Dan on 03-03-2024 Leukocyte esterase Test strip Ql (U) Negative Normal Negative [facility] Comment on above: Order Comment: Name Collection Type:: Clean-Voided Midstream Performed By: #### C EPHEID NEG, UA, COVID19 FLU RSV ####[place] [address] [place] [phone] [facility] Leukocyte esterase Test strip Ql (U) Leukocyte esterase [Presence] in Urine by Test strip Negative [facility] Leukocytes [#/volume] correc jorge for nucleated erythrocytes in Blood by Automated counOrdered By: Kait Dan on 03-03-2024 WBC corrected for nucl RBC Auto (Bld) [#/Vol] 7.2 10*3/uL 4.1-10.5 [facility] Leukocytes [#/volume] in Blo od by Automated countOrdered By: Kait Dan on 03-03-2024 WBC (Bld) [#/Vol] 7.2 10*3/uL Normal 4.1-10.[address] [facility] Comment on above: Performed By: #### H S TROP, SCAN CBC, BNP, BMP ####[place] [id number] [place] Lymphocytes [#/volume] in Bl ood by Automated countOrdered By: Kait Dan on 03-03-2024 Lymphocytes (Bld) [#/Vol] 1.3 10*3/uL Normal 1.00-4.8 [facility] Comment on above: Performed By: #### H S TROP, SCAN CBC, BNP, BMP ####[place] [phone] [place] Lymphocytes/100 leukocytes i n Blood by Automated countOrdered By: Kait Dan on 03-03-2024 Lymphocytes/100 WBC (Bld) 18.2 % Normal . [facility] Comment on above: Performed By: #### H S TROP, SCAN CBC, BNP, BMP ####[facility] [address] MCH [Entitic mass] by Automa jorge countOrdered By: Kait Dan on 03-03-2024 MCH (RBC) [Entitic mass] 21.8 pg Low 27.5-35.2 [facility] Comment on above: Performed By: #### H S TROP, SCAN CBC, BNP, BMP ####[facility] [id number] MCHC Auto (RBC) [Mass/Vol]Or dered By: Kait Dan on 03-03-2024 MCHC (RBC) [Mass/Vol] 31.6 g/dL Low 32.5-35.6 [facility] MCV [Entitic volume] by Auto mated countOrdered By: Kait Dan on 03-03-2024 MCV (RBC) [Entitic vol] 69.0 fL Low 83.5-101 [facility] Comment on above: Performed By: #### H S TROP, SCAN CBC, BNP, BMP ####[address] Microcytes LM Ql (Bld)Ordere d By: Kait Dan on 03-03-2024 Microcytes Ql (Bld) Marked [facility] Monocyte distribution width [Entitic volume] in Blood by AutomatedOrdered By: Kait Dan on 03-03-2024 Monocyte distribution width Auto (Bld) [Entitic vol] 17.33 % 0.00-20.00 [facility] Monocyte distribution width Auto (Bld) [Entitic vol] Monocyte distribution width [Entitic volume] in Blood by Automated 0.00-20.00 [facility] Natriuretic peptide B [Mass/ Vol]Ordered By: Kait Dan on 03-03-2024 Natriuretic peptide B (Bld) [Mass/Vol] BNP ser/plas 5-100 [facility] Neutrophils [#/volume] in Bl ood by Automated countOrdered By: Kait Dan on 03-03-2024 Neutrophils (Bld) [#/Vol] 4.7 10*3/uL Normal 1.8-7.7 [facility] Comment on above: Performed By: #### H S TROP, SCAN CBC, BNP, BMP ####[facility] [id number] [place] [id number] [facility] Nitrite Test strip Ql (U)Ord ered By: Kait Dan on 03-03-2024 Nitrite Ql (U) Negative Negative [facility] Nitrite Ql (U) Nitrite [Presence] i n Urine by Test strip Negative [facility] No Panel InformationOrdered By: Kait Dan on 03-03-2024 Estimated GFR (CKD-EPI) 38.669 mL/Min [facility] Creatinine Clearance (Chem 44.86 [facility] Nucleated erythrocytes [Pres ence] in Blood by Automated countOrdered By: Kait Dan on 03-03-2024 Nucleated RBC Auto Ql (Bld) 0.2 /100{WBC} 0-0.5 [facility] Platelet adequacy [Presence] in Blood by Light microscopyOrdered By: Kait Dan on 03-03-2024 Platelets LM Ql (Bld) Increased Normal [facility] Platelet mean volume [Entiti c volume] in Blood by Automated countOrdered By: Kait Dan on 03-03-2024 Platelet mean volume (Bld) [Entitic vol] 7.8 fL Normal 6.6-10.1 [facility] Comment on above: Performed By: #### H S TROP, SCAN CBC, BNP, BMP ####[facility] [id number] Platelet morphology finding [Identifier] in BloodOrdered By: Kait Dan on 03-03-2024 Platelet morphology finding Nom (Bld) Normal Normal [facility] Platelets [#/volume] in Bloo d by Automated countOrdered By: Kait Dna on 03-03-2024 Platelets (Bld) [#/Vol] 452 10*3/uL High 150-450 [facility] Comment on above: Performed By: #### H S TROP, SCAN CBC, BNP, BMP ####[facility] Polychromasia [Presence] in Blood by Light microscopyOrdered By: Kait Dan on 03-03-2024 Polychromasia LM Ql (Bld) Slight [facility] Potassium [Moles/volume] in Serum or PlasmaOrdered By: Kait Dan on 03-03-2024 Potassium [Moles/Vol] 3.9 mmol/L Normal 3.5-5.1 [facility] Comment on above: Performed By: #### H S TROP, SCAN CBC, BNP, BMP ####[place] [address] Protein Test strip (U) [Mass /Vol]Ordered By: Kait Dan on 03-03-2024 Protein (U) [Mass/Vol] Negative Negative [facility] Protein (U) [Mass/Vol] Protein [Mass/vol ume] in Urine by Test strip Negative [facility] RBC morphologyOrdered By: As darci Dan on 03-03-2024 RBC morphology finding Nom (Bld) N/A [facility] Respiratory specimen influen za A virus, influenza B virus, respiratory syncytical virOrdered By: Kait Dan on 03-03-2024 SARS-CoV-2 (COVID-19) RNA NELLY+probe Ql (Unsp spec) Respiratory specimen influenza A virus, influenza B virus, respiratory syncytical vir [facility] Scan and CBCon 03-03-2024 Hypochromasia Moderate Normal [facility] Comment on above: Performed By: #### H S TROP, SCAN CBC, BNP, BMP ####[place] [address] [place] [phone] [facility] Mean Corpuscular HGB Conc 31.6 g/dL Low 32.5-35.6 [facility] Comment on above: Performed By: #### H S TROP, SCAN CBC, BNP, BMP ####[place] [address] [place] [phone] [facility] Microcytosis Marked Normal [facility] Comment on above: Performed By: #### H S TROP, SCAN CBC, BNP, BMP ####[place] [address] [place] [phone] [facility] Monocytes/100 WBC (Bld) 17.33 % Normal 0.00-20.00 [facility] Group Comment on above: Performed By: #### H S TROP, SCAN CBC, BNP, BMP ####[place] [id number] [facility] NRBC% 0.2 /100{WBC} Normal 0-0.[address] [facility] Comment on above: Performed By: #### H S TROP, SCAN CBC, BNP, BMP ####[place] [id number] [facility] Platelet Estimate Increased Normal Normal [facility] Comment on above: Performed By: #### H S TROP, SCAN CBC, BNP, BMP ####[place] [id number] [facility] Platelet Morphology Normal Normal Normal [facility] Comment on above: Result Comment: PERF ORMED BY:[address] [place], [place] [id number] MEDICAL DIRECTORCLIFFORD LOBATO M.D. Performed By: #### H S TROP, SCAN CBC, BNP, BMP ####[address] Polychromasia Slight Normal [facility] Comment on above: Performed By: #### H S TROP, SCAN CBC, BNP, BMP ####[place] [id number] [facility] Serum or plasma anion gap de terminationOrdered By: Kait Dan on 03-03-2024 Anion gap [Moles/Vol] 14.6 mmol/L Normal 6.0-15.0 [facility] Comment on above: Performed By: #### H S TROP, SCAN CBC, BNP, BMP ####[place] [id number] [facility] Sodium [Moles/volume] in Ser um or PlasmaOrdered By: Kait Dan on 03-03-2024 Sodium [Moles/Vol] 138 mmol/L Normal 136-[address] [facility] Comment on above: Performed By: #### H S TROP, SCAN CBC, BNP, BMP ####[place] [address] [place] [address] [facility] Specific gravity Test strip (U) [Rel density]Ordered By: Kait Dan on 03-03-2024 Specific gravity (U) [Rel density] 1.009 1.001-1.03 0 [facility] Specific gravity (U) [Rel density] Specific gravity of Urine by Test strip 1.001-1.03 0 [facility] Troponin I High Sensitivityo n 03-03-2024 Troponin I High Sensitivity 4.5 pg/mL Normal 0.0-20.0 [facility] Comment on above: Result Comment: PERF ORMED BY:[address] [place]MaryH[place], [place] [phone] MEDICAL DIRECTORCLIFFORD LOBATO M.D. Performed By: #### H S TROP ####[place] [id number] [facility] Troponin I High Sensitivity 9.2 pg/mL Normal 0.0-20.0 [facility] Comment on above: Result Comment: PERF ORMED BY:[place] [address] [place], [place] [phone] MEDICAL DIRECTORCLIFFORD LOBATO M.D. Performed By: #### H S TROP, SCAN CBC, BNP, BMP ####[address] [address] [facility] Troponin I.cardiac [Mass/vol ume] in Serum or Plasma by Detection limit <= 0.01 ng/Ordered By: Kait Dan on 03-03-2024 Troponin I.cardiac DL <= 0.01 ng/mL [Mass/Vol] 4.5 pg/mL 0.0-20.0 [facility] Troponin I.cardiac DL <= 0.01 ng/mL [Mass/Vol] Troponin I.cardiac [Mass/volume] in Serum or Plasma by Detection limit <= 0.01 ng/ 0.0-20.0 [facility] Urea nitrogen [Mass/volume] in Serum or PlasmaOrdered By: Kait Dan on 03-03-2024 Urea nitrogen [Mass/Vol] 46 mg/dL High 7-25 [facility] Comment on above: Performed By: #### H S TROP, SCAN CBC, BNP, BMP ####[address] [address] [facility] Urinalysison 03-03-2024 Bilirubin,Urine Negative Normal Negative [facility] Comment on above: Order Comment: Name Collection Type:: Clean-Voided Midstream Performed By: #### C EPHEID NEG, UA, COVID19 FLU RSV ####[address] [address] [facility] Glucose Ql (U) 500 mg/dL High Normal [facility] Comment on above: Order Comment: Name Collection Type:: Clean-Voided Midstream Performed By: #### C EPHEID NEG, UA, COVID19 FLU RSV ####[place] [id number] [facility] Nitrite,Urine Negative Normal Negative [facility] Comment on above: Order Comment: Name Collection Type:: Clean-Voided Midstream Performed By: #### C EPHEID NEG, UA, COVID19 FLU RSV ####[place] [id number] [facility] Occult Blood,Urine Negative Normal Negative The [facility] Comment on above: Order Comment: Name Collection Type:: Clean-Voided Midstream Result Comment: PERF ORMED BY:[address] [place], [place] [phone] MEDICAL DIRECTORCLIFFORD LOBATO M.D. Performed By: #### C EPHEID NEG, UA, COVID19 FLU RSV ####[address] [address] [facility] Protein,Urine Negative Normal Negative [facility] Comment on above: Order Comment: Name Collection Type:: Clean-Voided Midstream Performed By: #### C EPHEID NEG, UA, COVID19 FLU RSV ####[address] [address] [facility] Specificy [place],Urine 1.009 Normal 1.001-1.03 0 [facility] Comment on above: Order Comment: Name Collection Type:: Clean-Voided Midstream Performed By: #### C EPHEID NEG, UA, COVID19 FLU RSV ####[facility] [place] [address] [facility] Urobilinogen,Urine Normal Normal Normal [facility] Comment on above: Order Comment: Name Collection Type:: Clean-Voided Midstream Performed By: #### C EPHEID NEG, UA, COVID19 FLU RSV ####[place] [address] [place] [id number] [facility] Urine appearanceOrdered By: Kait Dan on 03-03-2024 Appearance (U) Clear Normal Clear [facility] Comment on above: Order Comment: Name Collection Type:: Clean-Voided Midstream Performed By: #### C EPHEID NEG, UA, COVID19 FLU RSV ####[place] [address] Urobilinogen Test strip (U) [Mass/Vol]Ordered By: Kait Dan on 03-03-2024 Urobilinogen (U) [Mass/Vol] Normal mg/dL Normal [facility] Urobilinogen (U) [Mass/Vol] Urobilinogen [Mass/volume] in Urine by Test strip Normal [facility] XR chest 2V*on 03-03-2024 XR chest 2V* Normal [facility] pH Test strip (U)Ordered By: Kait Dan on 03-03-2024 pH (U) pH of Urine by Test strip 5.0-9.0 [facility] pH of Urine by Test stripOrd ered By: Kait Dan on 03-03-2024 pH (U) 5.0 [pH] Normal 5.0-9.0 [facility] Comment on above: Order Comment: Name Collection Type:: Clean-Voided Midstream Performed By: #### C EPHEID NEG, UA, COVID19 FLU RSV ####[place] [address] Coding Queryon 02-22-2024 Coding Query Coding [...] MYRA PICKARD SR; Caller Number: H Normal [facility] General Message Officeon General Message Office General Message O ffice --- --- --- --- --- --- --- --- --- From: Eric Lee To: MYRA PICKARD SR Sent: 02/22/24 02:30:41 AM EDT Subject: Discharge Summary Ready to View A summary regarding your recent visit is available in the Documents section of your health record. Normal [facility] Surgical Pathology Reporton 02-22-2024 Surgical Pathology Report [facility] [address] [place] [address]- Surgical Pathology Report Collected Date/Time: 02/12/2024 14:13 EDT Pathologist: Blair Blood MD Received Date/Time: 02/13/2024 07:26 EDT Simon HERRERA, Mike Montes MD, Mike Cain Surgical Pathology Report - 02/22/2024 14:10 EDT - Auth (Verified) Final Diagnosis RIGHT LOWER EXTREMITY, [id number] AMPUTATION: - Gangrenous ulcer and artery atherosclerosis. - Seborrheic keratosis. - No evidence of osteomyelitis. - Resection margin uninvolved by acute inflammation. (Electronic Signature) Yan. Caiite MD 02/22/2024 14:10 Clinical Information Pre-Op Diagnosis: Atherosclerosis of [place] arteries of extremities with gangrene, right leg. [...] pigmented lesion measuring 0.2 x 0.2 cm. [employer] sections are submitted in a total of ten cassettes: 1-5: Skin and soft tissue ulcerated areas 6-7: Artery 8: Bone near ulceration after decalcification 9-10: Bone from surgical margin after decalcification (DC) Gross of specimen was discussed with Dr. Dunne in Frozen Section Room at 1400. (DC) DC:MCA Microscopic Description Microscopic examination performed unless gross only specified. Normal [facility] Comment on above: Performed By: #### 4 [id number] #### [facility] [address] [place] [address] BMPon 02-21-2024 Anion gap [Moles/Vol] 8 mmol/L Normal 6-16 [facility] Comment on above: Performed By: #### 2 [id number] #### [facility] [address] [place] [address] Calcium [Mass/Vol] 8.6 mg/dL Low 8.9-11.1 [facility] Comment on above: Performed By: #### 2 [id number] #### [facility] [address] [place] [address] Chloride [Moles/Vol] 100 mmol/L Low 101-111 [facility] Comment on above: Performed By: #### 2 787734 #### [facility] [address] [place] [address] CO2 [Moles/Vol] 30 mmol/L Normal 21-31 [facility] Comment on above: Performed By: #### 2 538041 #### [facility] [address] [place] [address] Creatinine [Mass/Vol] 1.8 mg/dL High 0.5-1.3 [facility] Comment on above: Performed By: #### 2 951979 #### [facility] [address] [place] [address] Glucose [Mass/Vol] 169 mg/dL Normal 55-199 [facility] Comment on above: Performed By: #### 2 977822 #### [facility] [address] [place] [address] Potassium [Moles/Vol] 3.7 mmol/L Normal 3.5-5.3 [facility] Comment on above: Performed By: #### 2 783569 #### [facility] [address] [place] [address] Sodium [Moles/Vol] 134 mmol/L Low 135-145 [facility] Comment on above: Performed By: #### 2 133674 #### [facility] [address] [place] [address] Urea nitrogen [Mass/Vol] 26 mg/dL High 5-21 [facility] Comment on above: Performed By: #### 2 878675 #### [facility] [address] [place] [address] Urea nitrogen/Creatinine [Mass ratio] 14 No Units Normal 10-20 [facility] Comment on above: Performed By: #### 2 748478 #### [facility] [address] [place] [address] CBC w/ Auto Diffon 4 Basophils/100 WBC (Bld) 0.7 % Normal 0.0-2.0 [facility] Comment on above: Performed By: #### 2 956883 #### [facility] [address] [place] [address] Basophils/Leukocytes Auto (Bld) [Pure # fraction] 0.1 E9/L Normal 0.0-0.2 [facility] Comment on above: Performed By: #### 2 457264 #### [facility] [address] [place] [address] Eosinophils (Bld) [#/Vol] 0.4 E9/L Normal 0.0-0.5 [facility] Comment on above: Performed By: #### 2 015243 #### [facility] [address] [place] [address] Eosinophils/100 WBC (Bld) 3.6 % Normal 0.0-8.0 [facility] Comment on above: Performed By: #### 2 533100 #### [facility] [address] [place] [address] Erythrocyte distribution width (RBC) [Ratio] 21.4 % High 10.9-14.2 [facility] Comment on above: Performed By: #### 2 560665 #### [facility] [address] [place] [address] Hematocrit (Bld) [Volume fraction] 25.6 % Low 37.7-49.0 [facility] Comment on above: Performed By: #### 2 149566 #### [facility] [address] [place] [address] Hemoglobin (Bld) [Mass/Vol] 8.1 g/dL Low 13.5-17.5 [facility] Comment on above: Performed By: #### 2 788466 #### [facility] [address] [place] [address] Hypochromia Auto Ql (Bld) PRESENT Invalid Interpretation Code [facility] Comment on above: Performed By: #### 2 437370 #### [facility] [address] [place] [address] Lymphocytes (Bld) [#/Vol] 1.5 E9/L Normal 1.0-4.0 [facility] Comment on above: Performed By: #### 2 970305 #### [facility] [address] [place] [address] Lymphocytes/100 WBC (Bld) 12.4 % Low 14.0-50.0 [facility] Comment on above: Performed By: #### 2 509924 #### [facility] [address] [place] [address] MCH (RBC) [Entitic mass] 22.3 pg Low 27.0-34.0 [facility] Comment on above: Performed By: #### 2 415020 #### [facility] [address] [place] [address] MCHC (RBC) [Mass/Vol] 31.5 g/dL Normal 31.4-36.0 [facility] Comment on above: Performed By: #### 2 659298 #### [facility] [address] [place] [address] MCV (RBC) [Entitic vol] 70.7 fL Low 80.0-100.0 [facility] Comment on above: Performed By: #### 2 688969 #### [facility] [address] [place] [address] Microcytes Ql (Bld) PRESENT Invalid Interpretation Code [facility] Comment on above: Performed By: #### 2 769810 #### [facility] [address] [place] [address] Monocytes (Bld) [#/Vol] 1.1 E9/L High 0.2-1.0 [facility] Comment on above: Performed By: #### 2 248981 #### [facility] [address] [place] [address] Neutrophils (Bld) [#/Vol] 9.3 E9/L High 2.0-7.5 [facility] Comment on above: Performed By: #### 2 244961 #### [facility] [address] [place] [address] Neutrophils/100 WBC (Bld) 74.6 % Normal 36.0-75.0 [facility] Comment on above: Performed By: #### 2 805451 #### [facility] [address] [place] [address] Platelet mean volume (Bld) [Entitic vol] 8.6 fL Normal 6.4-10.8 [facility] Comment on above: Performed By: #### 2 617967 #### [facility] [address] [place] [address] Platelets (Bld) [#/Vol] 481.0 E9/L Normal 150.0-500. 0 [facility] Comment on above: Performed By: #### 2 224510 #### [facility] [address] [place] [address] Platelets Large LM Ql (Bld) PRESENT Invalid Interpretation Code [facility] Comment on above: Performed By: #### 2 878578 #### [facility] [address] [place] [address] RBC (Bld) [#/Vol] 3.6 E12/L Low 4.3-5.9 [facility] Comment on above: Performed By: #### 2 525076 #### [facility] [address] [place] [address] RBC size Nom (Bld) NORMAL Invalid Interpretation Code [facility] Comment on above: Performed By: #### 2 020147 #### [facility] [address] [place] [address] WBC corrected for nucl RBC Auto (Bld) [#/Vol] 12.5 E9/L High 4.0-11.0 [facility] Comment on above: Performed By: #### 2 [id number] #### [facility] [address] [place] [address] CHEMISTRYOrdered By: Lab ROP User on 02-21-2024 Glucose [Mass/Vol] 227 mg/dL High 55 - 99 mg/dL [facility] Subsection Comment on above: Result Comment: Deon hathaway RN/ POC Device SN [id number] 1 Invalid Interpretation Code [facility] POC Subsection POC User ID [id number] 1 Invalid Interpretation Code [facility] POC Subsection POC Username BRAULIO ABRAHANTERESOKATHERIN Invalid Interpretation Code [facility]OC Subsection Glucose [Mass/Vol] 177 mg/dL High 55 - 99 mg/dL [facility] POC Subsection Comment on above: Result Comment: Deon hathaway RN/MD POC Device SN [id number] 1 Invalid Interpretation Code [facility] POC Subsection POC User ID [id number] 1 Invalid Interpretation Code [facility] POC Subsection POC Username BRAULIOJOEYvonneAMNAJESSE Invalid Interpretation Code [facility] POC Subsection Glucose [Mass/Vol] 158 mg/dL High 55 - 99 mg/dL [facility] POC Subsection POC Device SN [id number] Invalid Interpretation Code [facility] POC Subsection POC User ID [id number] 1 Invalid Interpretation Code [facility] POC Subsection [...] 02-03 Glucose [Mass/Vol] 227 mg/dL High 55-99 [facility] Comment on above: Result Comment: Deon hathaway RN/ Performed By: #### 2 [id number] #### [facility] [address] [place] [address] Glucose [Mass/Vol] 177 mg/dL High 55-99 [facility] Comment on above: Result Comment: Deon ETIENNE Performed By: #### 2 [id number] #### [facility] [address] [place] [address] Glucose [Mass/Vol] 158 mg/dL High 55-99 [facility] Comment on above: Performed By: #### 2 [id number] #### [facility] [address] [place] [address] Discharge Note-Nursingon Discharge Note-Nursing Discharge Note-Paula barclaying [...] TERESA LYNCH DO, FAM When: Where: [address] [place] [address]- [facility]: Within 2 weeks Comments: Call for followup appointment Where: [address] [place] [address]- Medications What How Much When Instructions Next [...] 0.5 Tablets (more content not included)... Normal [facility] HEMATOLOGYOrdered By: SYSTEM SYSTEM on 02-21-2024 [...] 02-21-2024 Inpatient Clinical Summary Inpatient Clinical Summary [place] [address] Clinical Summary Person Information: Name: MYRA PICKARD SR Age: 58 Years : 1965 Sex: Male PCP: TERESA LYNCH DO Marital Status: Race: White Ethnicity: Non- or Language: Uzbek Visit Id: Visit Reason: I70.261 Speciality: Acuity: Enc Type: Inpatient Med Service: Medical Arrival: 02/12/2024 11:13:26 Discharge: Dispo Type: Address: [address] [place] [id number] Provider Notes: Diagnosis: 1:Hx of right BKA; [...] up: With: Address: When: TERESA LYNCH DO, [address] [address] With: Address: When: Mike Montes MD[address] [address] Within 2 weeks Comments: Call for followup appointment Patient Education Information: Living With an Amputation Normal [facility] Inpatient Patient Summaryon 02-21-2024 Inpatient Patient Summary Inpatient Patient Summary [address] [place] [address] Patient Discharge Instructions PERSON INFORMATION Name: [...] up: With: Address: When: TERESA LYNCH DO, [address] [address] With: Address: When: Mike Montes MD [address] [place] [address] Within 2 weeks Comments: Call for followup [...] Tablets By M (more content not included)... [facility] Interdisciplinary Note - Jorge e Manageron 02-21-2024 Interdisciplinary Note - [employer] Interdisciplinary Note - [employer] Precert for [facility] has been obtained. Patient informed and his was also contacted. Both remain in agreement with the discharge plan. Patient's will arrive to [facility] by 1700 this evening and will transport patient to [facility] once he has finished his dinner. Hospitalist, RN, and CRM aware. [facility] Comment on above: Result Comment: Elec tronically Signed By: Evens SÁNCHEZ, Fely Martin\.br\Date and Time Signed: 02/21/24 18:08 EDT Interdisciplinary Note - Soc ial Workeron 02-21-2024 Interdisciplinary Note - Seafood Processor Interdisciplinary Note - Seafood Processor Precert for [facility] has been obtained. Patient informed and his was also contacted. Both remain in agreement with the discharge plan. Patient's will arrive to [facility] by 1700 this evening and will transport patient to [facility] once he has finished his dinner. Hospitalist, RN, and CRM aware. [facility] Interdisciplinary Note - Seafood Processor Interdisciplinary Note - Seafood Processor Precert for [place] has been obtained. Patient informed and his was also contacted. Both remain in agreement with the discharge plan. Patient's will arrive to [facility] by 1700 this evening and will transport patient to [facility] once he has finished his dinner. Hospitalist, RN, and CRM aware. [facility] eGFRon 02-21-2024 eGFR 43 mL/min/1.73 m2 Low >=59 [facility] Comment on above: Order Comment: Order added by Discern Expert. Performed By: #### 1 [id number] #### [facility] [address] [place] [address] BMPon 02-20-2024 Anion gap [Moles/Vol] 15 mmol/L Normal 6-16 [facility] Comment on above: Performed By: #### 2 [id number] #### [facility] [address] [place] [address] Calcium [Mass/Vol] 9.4 mg/dL Normal 8.9-11.1 [facility] Comment on above: Performed By: #### 2 761544 #### [facility] [address] [place] [address] Chloride [Moles/Vol] 97 mmol/L Low 101-111 [facility] Comment on above: Performed By: #### 2 442099 #### [facility] [address] [place] [address] CO2 [Moles/Vol] 28 mmol/L Normal 21-31 [facility] Comment on above: Performed By: #### 2 027456 #### [facility] [address] [place] [address] Creatinine [Mass/Vol] 1.8 mg/dL High 0.5-1.3 [facility] Comment on above: Performed By: #### 2 950233 #### [facility] [address] [place] [address] Glucose [Mass/Vol] 259 mg/dL High 55-199 [facility] Comment on above: Performed By: #### 2 754452 #### [facility] [address] [place] [address] Potassium [Moles/Vol] 3.9 mmol/L Normal 3.5-5.3 [facility] Comment on above: Performed By: #### 2 446865 #### [facility] [address] [place] [address] Sodium [Moles/Vol] 136 mmol/L Normal 135-145 [facility] Comment on above: Performed By: #### 2 661462 #### [facility] [address] [place] [address] Urea nitrogen [Mass/Vol] 27 mg/dL High 5-21 [facility] Comment on above: Performed By: #### 2 520837 #### [facility] [address] [place] [address] Urea nitrogen/Creatinine [Mass ratio] 15 No Units Normal 10-20 [facility] Comment on above: Performed By: #### 2 730876 #### [facility] [address] [place] [address] CBC w/ Auto Diffon 4 Basophils/100 WBC (Bld) 0.7 % Normal 0.0-2.0 [facility] Comment on above: Performed By: #### 2 125409 #### [facility] [address] [place] [address] Basophils/Leukocytes Auto (Bld) [Pure # fraction] 0.1 E9/L Normal 0.0-0.2 [facility] Comment on above: Performed By: #### 2 193830 #### [facility] [address] [place] [address] Eosinophils (Bld) [#/Vol] 0.2 E9/L Normal 0.0-0.5 [facility] Comment on above: Performed By: #### 2 334413 #### [facility] [address] [place] [address] Eosinophils/100 WBC (Bld) 1.6 % Normal 0.0-8.0 [facility] Comment on above: Performed By: #### 2 453539 #### [facility] [address] [place] [address] Erythrocyte distribution width (RBC) [Ratio] 21.6 % High 10.9-14.2 [facility] Comment on above: Performed By: #### 2 124086 #### [facility] [address] [place] [address] Hematocrit (Bld) [Volume fraction] 27.5 % Low 37.7-49.0 [facility] Comment on above: Performed By: #### 2 759157 #### [facility] [address] [place] [address] Hemoglobin (Bld) [Mass/Vol] 8.9 g/dL Low 13.5-17.5 [facility] Comment on above: Performed By: #### 2 799043 #### [facility] [address] [place] [address] Hypochromia Auto Ql (Bld) PRESENT Invalid Interpretation Code [facility] Comment on above: Performed By: #### 2 106496 #### [facility] [address] [place] [address] Lymphocytes (Bld) [#/Vol] 1.3 E9/L Normal 1.0-4.0 [facility] Comment on above: Performed By: #### 2 051129 #### [facility] [address] [place] [address] Lymphocytes/100 WBC (Bld) 8.3 % Low 14.0-50.0 [facility] Comment on above: Performed By: #### 2 909251 #### [facility] [address] [place] [address] MCH (RBC) [Entitic mass] 22.9 pg Low 27.0-34.0 [facility] Comment on above: Performed By: #### 2 668906 #### [facility] [address] [place] [address] MCHC (RBC) [Mass/Vol] 32.2 g/dL Normal 31.4-36.0 [facility] Comment on above: Performed By: #### 2 177073 #### [facility] [address] [place] [address] MCV (RBC) [Entitic vol] 70.9 fL Low 80.0-100.0 [facility] Comment on above: Performed By: #### 2 844165 #### [facility] [address] [place] [address] Microcytes Ql (Bld) PRESENT Invalid Interpretation Code [facility] Comment on above: Performed By: #### 2 130357 #### [facility] [address] [place] [address] Monocytes (Bld) [#/Vol] 1.2 E9/L High 0.2-1.0 [facility] Comment on above: Performed By: #### 2 [id number] #### [facility] [address] [place] [address] Neutrophils (Bld) [#/Vol] 12.7 E9/L High 2.0-7.5 [facility] Comment on above: Performed By: #### 2 [id number] #### [facility] [address] [place] [address] Neutrophils/100 WBC (Bld) 81.5 % High 36.0-75.0 [facility] Comment on above: Performed By: #### 2 [id number] #### [facility] [address] [place] [address] Platelet 521.0 E9/L High 150.0-500. 0 [facility] Comment on above: Performed By: #### 2 [id number] #### [facility] [address] [place] [address] Platelet mean volume (Bld) [Entitic vol] 8.6 fL Normal 6.4-10.8 [facility] Comment on above: Performed By: #### 2 [id number] #### [facility] [address] [place] [address] RBC (Bld) [#/Vol] 3.9 E12/L Low 4.3-5.9 [facility] Comment on above: Performed By: #### 2 [id number] #### [facility] [address] [place] [address] RBC size Nom (Bld) SEE MORPHOLOGY Invalid Interpretation Code [facility] Comment on above: Performed By: #### 2 [id number] #### [facility] [address] [place] [address] WBC corrected for nucl RBC Auto (Bld) [#/Vol] 15.6 E9/L High 4.0-11.0 [facility] Comment on above: Performed By: #### 2 [id number] #### [facility] [address] [place] [address] CHEMISTRYOrdered By: SYSTEM SYSTEM on 02-20-2024 Anion [...] 02-03 Glucose [Mass/Vol] 192 mg/dL High 55-99 [facility] Comment on above: Result Comment: Deon ETIENNE Performed By: #### 2 [id number] #### [facility] [address] [place] [address] Glucose [Mass/Vol] 180 mg/dL High 55-99 [facility] Comment on above: Result Comment: Deon ETIENNE Performed By: #### 2 [id number] #### [facility] [address] [place] [address] Glucose [Mass/Vol] 104 mg/dL High 55-99 [facility] Comment on above: Result Comment: Deon hathaway RN/ Performed By: #### 2 [id number] #### [facility] [address] [place] [address] Glucose [Mass/Vol] 165 mg/dL High 55-99 [facility] Comment on above: Result Comment: Deon ETIENNE Performed By: #### 2 [id number] #### [facility] [address] [place] [address] Glucose [Mass/Vol] 224 mg/dL High 55-99 [facility] Comment on above: Result Comment: Deon ETIENNE Performed By: #### 2 [id number] #### [facility] [address] [place] [address] Coding Queryon 02-20-2024 Coding Query Coding Query [...] desired or expected. Thank you!eliz [phone] Normal [facility] HEMATOLOGYOrdered By: SYSTEM SYSTEM on 02-20-2024 [...] Jorge e Manageron 02-20-2024 Interdisciplinary Note - [employer] Interdisciplinary Note - [employer] This SW rounded with patient this morning. He is aware that precert is still pending for [facility] and SW will update him as soon as determination is received. SW will also update his . Call placed to patient's this afternoon and a message was left letting her know that the precert remains pending at this time. Normal [facility] Comment on above: Result Comment: Elec tronically Signed By: Fely Narvaez.br\Date and Time Signed: 02/20/24 15:25 EDT Interdisciplinary Note - [employer] Interdisciplinary Note - [employer] This SW rounded with patient this morning. He is aware that precert is still pending for [facility] and SW will update him as soon as determination is received. SW will also update his . Normal [facility] Comment on above: Result Comment: Elec tronically Signed By: Fely Narvaez.br\Date and Time Signed: 02/20/24 13:55 EDT eGFRon 02-20-2024 eGFR 43 mL/min/1.73 m2 Low >=59 [facility] Comment on above: Order Comment: Order added by Discern Expert. Performed By: #### 1 [id number] #### [facility] [address] [place] [address] BMPon 02-19-2024 Anion gap [Moles/Vol] 12 mmol/L Normal 6-16 [facility] Comment on above: Performed By: #### 2 [id number] #### [facility] [address] [place] [address] Calcium [Mass/Vol] 8.9 mg/dL Normal 8.9-11.1 [facility] Comment on above: Performed By: #### 2 [id number] #### [facility] [address] [place] [address] Chloride [Moles/Vol] 100 mmol/L Low 101-111 [facility] Comment on above: Performed By: #### 2 [id number] #### [facility] [address] [place] [address] CO2 [Moles/Vol] 28 mmol/L Normal 21-31 [facility] Comment on above: Performed By: #### 2 [id number] #### [facility] [address] [place] [address] Creatinine [Mass/Vol] 1.7 mg/dL High 0.5-1.3 [facility] Comment on above: Performed By: #### 2 [id number] #### [facility] [address] [place] [address] Glucose [Mass/Vol] 235 mg/dL High 55-199 [facility] Comment on above: Performed By: #### 2 [id number] #### [facility] [address] [place] [address] Potassium [Moles/Vol] 4.1 mmol/L Normal 3.5-5.3 [facility] Comment on above: Performed By: #### 2 [id number] #### [facility] [address] [place] [address] Sodium [Moles/Vol] 136 mmol/L Normal 135-145 [facility] Comment on above: Performed By: #### 2 [id number] #### [facility] [address] [place] [address] Urea nitrogen [Mass/Vol] 25 mg/dL High 5-21 [facility] Comment on above: Performed By: #### 2 [id number] #### [facility] [address] [place] [address] Urea nitrogen/Creatinine [Mass ratio] 15 No Units Normal 10-20 [facility] Comment on above: Performed By: #### 2 [id number] #### [facility] [address] [place] [address] CBC w/ Auto Diffon 4 Basophils/100 WBC (Bld) 1.6 % Normal 0.0-2.0 [facility] Comment on above: Performed By: #### 2 [id number] #### [facility] [address] [place] [address] Basophils/Leukocytes Auto (Bld) [Pure # fraction] 0.2 E9/L Normal 0.0-0.2 [facility] Comment on above: Performed By: #### 2 [id number] #### [facility] [address] [place] [address] Eosinophils (Bld) [#/Vol] 0.5 E9/L Normal 0.0-0.5 [facility] Comment on above: Performed By: #### 2 284791 #### [facility] [address] [place] [address] Eosinophils/100 WBC (Bld) 5.1 % Normal 0.0-8.0 [facility] Comment on above: Performed By: #### 2 096565 #### [facility] [address] [place] [address] Erythrocyte distribution width (RBC) [Ratio] 21.6 % High 10.9-14.2 [facility] Comment on above: Performed By: #### 2 514335 #### [facility] [address] [place] [address] Hematocrit (Bld) [Volume fraction] 24.4 % Low 37.7-49.0 [facility] Comment on above: Performed By: #### 2 756297 #### [facility] [address] [place] [address] Hemoglobin (Bld) [Mass/Vol] 7.9 g/dL Low 13.5-17.5 [facility] Comment on above: Performed By: #### 2 392919 #### [facility] [address] [place] [address] Hypochromia Auto Ql (Bld) PRESENT Invalid Interpretation Code [facility] Comment on above: Performed By: #### 2 [id number] #### [facility] [address] [place] [address] Lymphocytes (Bld) [#/Vol] 1.9 E9/L Normal 1.0-4.0 [facility] Comment on above: Performed By: #### 2 278266 #### [facility] [address] [place] [address] Lymphocytes/100 WBC (Bld) 18.4 % Normal 14.0-50.0 [facility] Comment on above: Performed By: #### 2 858036 #### [facility] [address] [place] [address] MCH (RBC) [Entitic mass] 22.8 pg Low 27.0-34.0 [facility] Comment on above: Performed By: #### 2 [id number] #### [facility] [address] [place] [address] MCHC (RBC) [Mass/Vol] 32.3 g/dL Normal 31.4-36.0 [facility] Comment on above: Performed By: #### 2 239279 #### [facility] [address] [place] [address] MCV (RBC) [Entitic vol] 70.4 fL Low 80.0-100.0 [facility] Comment on above: Performed By: #### 2 [id number] #### [facility] [address] [place] [address] Monocytes (Bld) [#/Vol] 1.0 E9/L Normal 0.2-1.0 [facility] Comment on above: Performed By: #### 2 820384 #### [facility] [address] [place] [address] Neutrophils (Bld) [#/Vol] 6.7 E9/L Normal 2.0-7.5 [facility] Comment on above: Performed By: #### 2 567492 #### [facility] [address] [place] [address] Neutrophils/100 WBC (Bld) 65.1 % Normal 36.0-75.0 [facility] Comment on above: Performed By: #### 2 353818 #### [facility] [address] [place] [address] Platelet 444.0 E9/L Normal 150.0-500. 0 [facility] Comment on above: Performed By: #### 2 111611 #### [facility] [address] [place] [address] Platelet mean volume (Bld) [Entitic vol] 8.1 fL Normal 6.4-10.8 [facility] Comment on above: Performed By: #### 2 [id number] #### [facility] [address] [place] [address] RBC (Bld) [#/Vol] 3.5 E12/L Low 4.3-5.9 [facility] Comment on above: Performed By: #### 2 [id number] #### [facility] [address] [place] [address] RBC size Nom (Bld) SEE MORPHOLOGY Invalid Interpretation Code [facility] Comment on above: Performed By: #### 2 061712 #### [facility] [address] [place] [address] WBC corrected for nucl RBC Auto (Bld) [#/Vol] 10.3 E9/L Normal 4.0-11.0 [facility] Comment on above: Performed By: #### 2 [id number] #### [facility] [address] [place] [address] CHEMISTRYOrdered By: SYSTEM SYSTEM on 02-19-2024 Anion [...] 02-03 Glucose [Mass/Vol] 250 mg/dL High 55-99 [facility] Comment on above: Result Comment: Deon ETIENNE Performed By: #### 2 [id number] #### [facility] [address] [place] [address] Glucose [Mass/Vol] 272 mg/dL High 55-99 [facility] Comment on above: Result Comment: Deon ETIENNE Performed By: #### 2 [id number] #### [facility] [address] [place] [address] Glucose [Mass/Vol] 277 mg/dL High 55-99 [facility] Comment on above: Result Comment: Deon ETIENNE Performed By: #### 2 [id number] #### [facility] [address] [place] [address] Glucose [Mass/Vol] 217 mg/dL High 55-99 [facility] Comment on above: Result Comment: Deon hathaway RN/ Performed By: #### 2 [id number] #### [facility] [address] [place] [address] HEMATOLOGYOrdered By: SYSTEM SYSTEM on 02-19-2024 Basophils/100 [...] Jorge e Manageron 02-19-2024 Interdisciplinary Note - [employer] Interdisciplinary Note - [employer] This SW met with patient today to discuss discharge plans. Plan remains for [facility] once precert is obtained. All updates have been sent to [facility] for the precert, which was submitted on Monday. Patient requested that SW contact his once precert is obtained, or before the end of the day if not obtained today. This SW made a tc to patient's and let her know that precert is still pending. She voiced understanding. [facility] Comment on above: Result Comment: Elec tronically Signed By: Fely [email or web address].nile\Date and Time Signed: 02/19/24 15:59 EDT Interdisciplinary Note - [employer] Interdisciplinary Note - [employer] This SW met with patient today to discuss discharge plans. Plan remains for patient to go to [facility] in [place] once precert is obtained. All updates have been sent to [facility] for the precert, which was submitted on Monday. Patient requested that SW contact his once precert is obtained, or before the end of the day if not obtained today. Normal [facility] Comment on above: Result Comment: Elec [...] counts were correct. Sully Valdez Dictated: 02/12/2024 [id number] Transcribed: 02/13/2024 [facility] Comment on above: Result Comment: Elec [...] tolerated the procedure well without complications.. Normal [facility] Comment on above: Result Comment: Elec tronically Signed By: MD Juanito, Laura Rodriguez\.br\Date and Time Signed: 02/19/24 08:36 EDT eGFRon 02-19-2024 eGFR 46 mL/min/1.73 m2 Low >=59 [facility] Comment on above: Order Comment: Order added by Discern Expert. Performed By: #### 1 [id number] #### [facility] [address] [place] [address] Capillary Glucose POCon 02-03 Glucose [Mass/Vol] 348 mg/dL High 55-99 [facility] Comment on above: Result Comment: Deon hathaway RN/ Performed By: #### 2 [id number] #### [facility] [address] [place] [address] Glucose [Mass/Vol] 323 mg/dL High 55-99 [facility] Comment on above: Result Comment: Deon hathaway RN/ Performed By: #### 2 [id number] #### [facility] [address] [place] [address] Glucose [Mass/Vol] 323 mg/dL High 55-99 [facility] Comment on above: Result Comment: Deon hathaway RN/ Performed By: #### 2 [id number] #### [facility] [address] [place] [address] Glucose [Mass/Vol] 210 mg/dL High 55-99 [facility] Comment on above: Result Comment: Deon hathaway RN/ Performed By: #### 2 [id number] #### [facility] [address] [facility] [place] [address] BMPon 02-17-2024 Anion gap [Moles/Vol] 13 mmol/L Normal 6-16 [facility] Comment on above: Performed By: #### 2 [id number] #### [facility] [address] [place] [address] Calcium [Mass/Vol] 9.3 mg/dL Normal 8.9-11.1 [facility] Comment on above: Performed By: #### 2 361615 #### [facility] [address] [place] [address] Chloride [Moles/Vol] 98 mmol/L Low 101-111 [facility] Comment on above: Performed By: #### 2 403665 #### [facility] [address] [place] [address] CO2 [Moles/Vol] 28 mmol/L Normal 21-31 [facility] Comment on above: Performed By: #### 2 156817 #### [facility] [address] [place] [address] Creatinine [Mass/Vol] 1.8 mg/dL High 0.5-1.3 [facility] Comment on above: Performed By: #### 2 704648 #### [facility] [address] [place] [address] Glucose [Mass/Vol] 374 mg/dL High 55-199 [facility] Comment on above: Performed By: #### 2 447235 #### [facility] [address] [place] [address] Potassium [Moles/Vol] 4.6 mmol/L Normal 3.5-5.3 [facility] Comment on above: Performed By: #### 2 369902 #### [facility] [address] [place] [address] Sodium [Moles/Vol] 134 mmol/L Low 135-145 [facility] Comment on above: Performed By: #### 2 [id number] #### [facility] [address] [place] [address] Urea nitrogen [Mass/Vol] 25 mg/dL High 5-21 [facility] Comment on above: Performed By: #### 2 190090 #### [facility] [address] [place] [address] Urea nitrogen/Creatinine [Mass ratio] 14 No Units Normal 10-20 [facility] Comment on above: Performed By: #### 2 192579 #### [facility] [address] [place] [address] CBC w/ Auto Diffon 4 Basophils/100 WBC (Bld) 1.0 % Normal 0.0-2.0 [facility] Comment on above: Performed By: #### 2 861234 #### [facility] [address] [place] [address] Basophils/Leukocytes Auto (Bld) [Pure # fraction] 0.1 E9/L Normal 0.0-0.2 [facility] Comment on above: Performed By: #### 2 365211 #### [facility] [address] [place] [address] Eosinophils (Bld) [#/Vol] 0.5 E9/L Normal 0.0-0.5 [facility] Comment on above: Performed By: #### 2 839390 #### [facility] [address] [place] [address] Eosinophils/100 WBC (Bld) 5.0 % Normal 0.0-8.0 [facility] Comment on above: Performed By: #### 2 300904 #### [facility] [address] [place] [address] Erythrocyte distribution width (RBC) [Ratio] 21.6 % High 10.9-14.2 [facility] Comment on above: Performed By: #### 2 396163 #### [facility] [address] [place] [address] Hematocrit (Bld) [Volume fraction] 24.8 % Low 37.7-49.0 [facility] Comment on above: Performed By: #### 2 316194 #### [facility] [address] [place] [address] Hemoglobin (Bld) [Mass/Vol] 8.5 g/dL Low 13.5-17.5 [facility] Comment on above: Performed By: #### 2 403463 #### [facility] [address] [place] [address] Lymphocytes (Bld) [#/Vol] 1.6 E9/L Normal 1.0-4.0 [facility] Comment on above: Performed By: #### 2 014645 #### [facility] [address] [place] [address] Lymphocytes/100 WBC (Bld) 15.2 % Normal 14.0-50.0 [facility] Comment on above: Performed By: #### 2 [id number] #### [facility] [address] [place] [address] MCH (RBC) [Entitic mass] 24.3 pg Low 27.0-34.0 [facility] Comment on above: Performed By: #### 2 227236 #### [facility] [address] [place] [address] MCHC (RBC) [Mass/Vol] 34.2 g/dL Normal 31.4-36.0 [facility] Comment on above: Performed By: #### 2 100254 #### [facility] [address] [place] [address] MCV (RBC) [Entitic vol] 70.9 fL Low 80.0-100.0 [facility] Comment on above: Performed By: #### 2 [id number] #### [facility] [address] [place] [address] Microcytes Ql (Bld) PRESENT Invalid Interpretation Code [facility] Comment on above: Performed By: #### 2 [id number] #### [facility] [address] [place] [address] Monocytes (Bld) [#/Vol] 1.1 E9/L High 0.2-1.0 [facility] Comment on above: Performed By: #### 2 968444 #### [facility] [address] [place] [address] Neutrophils (Bld) [#/Vol] 7.1 E9/L Normal 2.0-7.5 [facility] Comment on above: Performed By: #### 2 [id number] #### [facility] [address] [place] [address] Neutrophils/100 WBC (Bld) 68.3 % Normal 36.0-75.0 [facility] Comment on above: Performed By: #### 2 285109 #### [facility] [address] [place] [address] Platelet 395.0 E9/L Normal 150.0-500. 0 [facility] Comment on above: Performed By: #### 2 265690 #### [facility] [address] [place] [address] Platelet mean volume (Bld) [Entitic vol] 8.2 fL Normal 6.4-10.8 [facility] Comment on above: Performed By: #### 2 [id number] #### [facility] [address] [place] [address] RBC (Bld) [#/Vol] 3.5 E12/L Low 4.3-5.9 [facility] Comment on above: Performed By: #### 2 [id number] #### [facility] [address] [place] [address] RBC size Nom (Bld) SEE MORPHOLOGY Invalid Interpretation Code [facility] Comment on above: Performed By: #### 2 [id number] #### [facility] [address] [place] [address] WBC corrected for nucl RBC Auto (Bld) [#/Vol] 10.4 E9/L Normal 4.0-11.0 [facility] Comment on above: Performed By: #### 2 445557 #### [facility] [address] [place] [address] Capillary Glucose POCon 02-03 Glucose [Mass/Vol] 366 mg/dL High 55-99 [facility] Comment on above: Result Comment: Deon ETIENNE Performed By: #### 2 [id number] #### [facility] [address] [place] [address] Glucose [Mass/Vol] 314 mg/dL High 55-99 [facility] Comment on above: Result Comment: Deon ETIENNE Performed By: #### 2 [id number] #### [facility] [address] [place] [address] Glucose [Mass/Vol] 389 mg/dL High 55-99 [facility] Comment on above: Result Comment: Deon ETIENNE Performed By: #### 2 [id number] #### [facility] [address] [place] [address] Glucose [Mass/Vol] 298 mg/dL High 55-99 [facility] Comment on above: Result Comment: Deon ETIENNE Performed By: #### 2 [id number] #### [facility] [address] [place] [address] HEMATOLOGYOrdered By: SYSTEM SYSTEM on 02-17-2024 Microcytes Ql (Bld) PRESENT *NA* (02/17/24 10:59 AM) Invalid Interpretation Code Remisol Heme eGFRon 02-17-2024 eGFR 43 mL/min/1.73 m2 Low >=59 [facility] Comment on above: Order Comment: Order added by Discern Expert. Performed By: #### 1 [id number] #### [facility] [address] [place] [address] BMPon 02-16-2024 Anion gap [Moles/Vol] 12 mmol/L Normal 6-16 [facility] Comment on above: Performed By: #### 2 [id number] #### [facility] [address] [place] [address] Calcium [Mass/Vol] 8.5 mg/dL Low 8.9-11.1 [facility] Comment on above: Performed By: #### 2 038992 #### [facility] [address] [place] [address] Chloride [Moles/Vol] 100 mmol/L Low 101-111 [facility] Comment on above: Performed By: #### 2 736202 #### [facility] [address] [place] [address] CO2 [Moles/Vol] 27 mmol/L Normal 21-31 [facility] Comment on above: Performed By: #### 2 [id number] #### [facility] [address] [place] [address] Creatinine [Mass/Vol] 1.8 mg/dL High 0.5-1.3 [facility] Comment on above: Performed By: #### 2 892627 #### [facility] [address] [place] [address] Glucose [Mass/Vol] 242 mg/dL High 55-199 [facility] Comment on above: Performed By: #### 2 819526 #### [facility] [address] [place] [address] Potassium [Moles/Vol] 3.8 mmol/L Normal 3.5-5.3 [facility] Comment on above: Performed By: #### 2 665534 #### [facility] [address] [place] [address] Sodium [Moles/Vol] 135 mmol/L Normal 135-145 [facility] Comment on above: Performed By: #### 2 963292 #### [facility] [address] [place] [address] Urea nitrogen [Mass/Vol] 25 mg/dL High 5-21 [facility] Comment on above: Performed By: #### 2 366183 #### [facility] [address] [place] [address] Urea nitrogen/Creatinine [Mass ratio] 14 No Units Normal 10-20 [facility] Comment on above: Performed By: #### 2 [id number] #### [facility] [address] [place] [address] CBC w/ Auto Diffon 4 Basophils/100 WBC (Bld) 0.7 % Normal 0.0-2.0 [facility] Comment on above: Performed By: #### 2 762457 #### [facility] [address] [place] [address] Basophils/Leukocytes Auto (Bld) [Pure # fraction] 0.1 E9/L Normal 0.0-0.2 [facility] Comment on above: Performed By: #### 2 [id number] #### [facility] [address] [place] [address] Eosinophils (Bld) [#/Vol] 0.5 E9/L Normal 0.0-0.5 [facility] Comment on above: Performed By: #### 2 868138 #### [facility] [address] [place] [address] Eosinophils/100 WBC (Bld) 4.2 % Normal 0.0-8.0 [facility] Comment on above: Performed By: #### 2 330383 #### [facility] [address] [place] [address] Erythrocyte distribution width (RBC) [Ratio] 21.5 % High 10.9-14.2 [facility] Comment on above: Performed By: #### 2 [id number] #### [facility] [address] [place] [address] Hematocrit (Bld) [Volume fraction] 22.9 % Low 37.7-49.0 [facility] Comment on above: Performed By: #### 2 [id number] #### [facility] [address] [place] [address] Hemoglobin (Bld) [Mass/Vol] 7.6 g/dL Low 13.5-17.5 [facility] Comment on above: Performed By: #### 2 807395 #### [facility] [address] [place] [address] Hypochromia Auto Ql (Bld) PRESENT Invalid Interpretation Code [facility] Comment on above: Performed By: #### 2 [id number] #### [facility] [address] [place] [address] Lymphocytes (Bld) [#/Vol] 1.4 E9/L Normal 1.0-4.0 [facility] Comment on above: Performed By: #### 2 [id number] #### [facility] [address] [place] [address] Lymphocytes/100 WBC (Bld) 12.7 % Low 14.0-50.0 [facility] Comment on above: Performed By: #### 2 686876 #### [facility] [address] [place] [address] MCH (RBC) [Entitic mass] 23.4 pg Low 27.0-34.0 [facility] Comment on above: Performed By: #### 2 [id number] #### [facility] [address] [place] [address] MCHC (RBC) [Mass/Vol] 33.0 g/dL Normal 31.4-36.0 [facility] Comment on above: Performed By: #### 2 [id number] #### [facility] [address] [place] [address] MCV (RBC) [Entitic vol] 70.9 fL Low 80.0-100.0 [facility] Comment on above: Performed By: #### 2 [id number] #### [facility] [address] [place] [address] Microcytes Ql (Bld) PRESENT Invalid Interpretation Code [facility] Comment on above: Performed By: #### 2 [id number] #### [facility] [address] [place] [address] Monocytes (Bld) [#/Vol] 1.3 E9/L High 0.2-1.0 [facility] Comment on above: Performed By: #### 2 [id number] #### [facility] [address] [place] [address] Neutrophils (Bld) [#/Vol] 7.7 E9/L High 2.0-7.5 [facility] Comment on above: Performed By: #### 2 [id number] #### [facility] [address] [place] [address] Neutrophils/100 WBC (Bld) 70.1 % Normal 36.0-75.0 [facility] Comment on above: Performed By: #### 2 [id number] #### [facility] [address] [place] [address] Platelet 284.0 E9/L Normal 150.0-500. 0 [facility] Comment on above: Performed By: #### 2 [id number] #### [facility] [address] [place] [address] Platelet mean volume (Bld) [Entitic vol] 8.4 fL Normal 6.4-10.8 [facility] Comment on above: Performed By: #### 2 [id number] #### [facility] [address] [place] [address] RBC (Bld) [#/Vol] 3.2 E12/L Low 4.3-5.9 [facility] Comment on above: Performed By: #### 2 [id number] #### [facility] [address] [place] [address] RBC size Nom (Bld) SEE MORPHOLOGY Invalid Interpretation Code [facility] Comment on above: Performed By: #### 2 [id number] #### [facility] [address] [place] [address] WBC corrected for nucl RBC Auto (Bld) [#/Vol] 11.0 E9/L Normal 4.0-11.0 [facility] Comment on above: Performed By: #### 2 [id number] #### [facility] [address] [place] [address] Capillary Glucose POCon 02-03 Glucose [Mass/Vol] 266 mg/dL High 55-99 [facility] Comment on above: Result Comment: Deon hathaway RN/ Performed By: #### 2 [id number] #### [facility] [address] [place] [address] Glucose [Mass/Vol] 319 mg/dL High 55-99 [facility] Comment on above: Result Comment: Deon ETIENNE Performed By: #### 2 [id number] #### [facility] [address] [place] [address] Glucose [Mass/Vol] 403 mg/dL High 55-99 [facility] Comment on above: Result Comment: Deon ETIENNE Performed By: #### 2 [id number] #### [facility] [address] [place] [address] Glucose [Mass/Vol] 319 mg/dL High 55-99 [facility] Comment on above: Result Comment: Deon ETIENNE Performed By: #### 2 [id number] #### [facility] [address] [place] [address] Glucose [Mass/Vol] 253 mg/dL High 55-99 [facility] Comment on above: Result Comment: Deon ETIENNE Performed By: #### 2 [id number] #### [facility] [address] [place] [address] Coding Queryon 02-16-2024 Coding Query Coding Query From: Eliz iDaz RN To: Elan Antonio MD; Sent: 02/13/2024 [...] H Dx: acute blood loss anemia Normal [facility] Inpatient Clinical Summaryon 02-16-2024 Inpatient Clinical Summary Inpatient Clinical Summary [address] [address] Clinical Summary Person Information: Name: MYRA PICKARD SR Age: 58 Years : 1965 Sex: Male PCP: TERESA LYNCH DO Marital Status: Race: White Ethnicity: Non- or Language: Uzbek Visit Id: Visit Reason: I70.261 Speciality: Acuity: Enc Type: Inpatient Med Service: Medical Arrival: 02/12/2024 11:13:26 Discharge: Dispo Type: Address: [address] [place] [address] [address] [facility] [id number] Provider Notes: Diagnosis: 1:Hx of right BKA; [...] Montes MD Follow up: Patient Education Information: [facility] Inpatient Patient Summaryon 02-16-2024 Inpatient Patient Summary Inpatient Patient Summary [place] [address] Patient Discharge Instructions PERSON INFORMATION Name: MATTEO [...] Last Dose: (more content not included)... Normal [facility] Insurance Correspondence Off iceon 02-16-2024 Insurance Correspondence [...] correct. Mike Montes M.D. noe Dictated: 02/12/2024 [id number] Transcribed: 02/13/2024 Normal [facility] Interdisciplinary Note - Jorge e Manageron 02-16-2024 Interdisciplinary Note - [employer] Interdisciplinary Note - [employer] This SW received notification from [facility] that patient's had called and wanted to cancel the Acute Rehab and proceed with [facility]. TC from Acute Rehab was received [...] SW also explained that if going to [facility], precert would have to be obtained. SW spent a lengthy amount of time going over the differences between the 2 faciliites with patient. He informed SW that his choice was to go to [facility], not Acute [facility]hab. SW notified Acute Rehab [...] 3 steps to enter their home. Normal [facility] Comment on above: Result Comment: Elec tronically Signed By: Evens SÁNCHEZ, Fely Martin\.br\Date and Time Signed: 02/16/24 12:45 EDT eGFRon 02-16-2024 eGFR 43 mL/min/1.73 m2 Low >=59 [facility] Comment on above: Order Comment: Order added by Discern Expert. Performed By: #### 1 [id number] #### [facility] [address] [place] [address] BMPon 02-15-2024 Anion gap [Moles/Vol] 9 mmol/L Normal 6-16 [facility] Comment on above: Performed By: #### 2 862172 #### [facility] [address] [place] [address] Calcium [Mass/Vol] 8.3 mg/dL Low 8.9-11.1 [facility] Comment on above: Performed By: #### 2 [id number] #### [facility] [address] [place] [address] Chloride [Moles/Vol] 98 mmol/L Low 101-[address] [facility] Comment on above: Performed By: #### 2 445696 #### [facility] [address] [place] [address] CO2 [Moles/Vol] 30 mmol/L Normal 21-31 [facility] Comment on above: Performed By: #### 2 [id number] #### [facility] [address] [place] [address] Creatinine [Mass/Vol] 1.9 mg/dL High 0.5-1.3 [facility] Comment on above: Performed By: #### 2 793103 #### [facility] [address] [place] [address] Glucose [Mass/Vol] 319 mg/dL High 55-199 [facility] Comment on above: Performed By: #### 2 510614 #### [facility] [address] [place] [address] Potassium [Moles/Vol] 3.9 mmol/L Normal 3.5-5.3 [facility] Comment on above: Performed By: #### 2 488499 #### [facility] [address] [place] [address] Sodium [Moles/Vol] 133 mmol/L Low 135-145 [facility] Comment on above: Performed By: #### 2 [id number] #### [facility] [address] [place] [address] Urea nitrogen [Mass/Vol] 25 mg/dL High 5-21 [facility] Comment on above: Performed By: #### 2 539552 #### [facility] [address] [place] [address] Urea nitrogen/Creatinine [Mass ratio] 13 No Units Normal 10-20 [facility] Comment on above: Performed By: #### 2 [id number] #### [facility] [address] [place] [address] CBC w/Indiceson 02-15-2024 Erythrocyte distribution width (RBC) [Ratio] 20.9 % High 10.9-14.2 [facility] Comment on above: Performed By: #### 2 [id number] #### [facility] [address] [place] [address] Hematocrit (Bld) [Volume fraction] 22.2 % Low 37.7-49.0 [facility] Comment on above: Performed By: #### 2 083977 #### [facility] [address] [place] [address] Hemoglobin (Bld) [Mass/Vol] 7.7 g/dL Low 13.5-17.5 [facility] Comment on above: Performed By: #### 2 853701 #### [facility] [address] [place] [address] MCH (RBC) [Entitic mass] 24.3 pg Low 27.0-34.0 [facility] Comment on above: Performed By: #### 2 [id number] #### [facility] [address] [place] [address] MCHC (RBC) [Mass/Vol] 34.6 g/dL Normal 31.4-36.0 [facility] Comment on above: Performed By: #### 2 [id number] #### [facility] [address] [place] [address] MCV (RBC) [Entitic vol] 70.2 fL Low 80.0-100.0 [facility] Comment on above: Performed By: #### 2 945872 #### [facility] [address] [place] [address] Platelet 239.0 E9/L Normal 150.0-500. 0 [facility] Comment on above: Performed By: #### 2 [id number] #### [facility] [address] [place] [address] Platelet mean volume (Bld) [Entitic vol] 8.2 fL Normal 6.4-10.8 [facility] Comment on above: Performed By: #### 2 [id number] #### [facility] [address] [place] [address] RBC (Bld) [#/Vol] 3.2 E12/L Low 4.3-5.9 [facility] Comment on above: Performed By: #### 2 [id number] #### [facility] [address] [place] [address] RBC size Nom (Bld) NORMAL Invalid Interpretation Code [facility] Comment on above: Performed By: #### 2 [id number] #### [facility] [address] [place] [address] WBC corrected for nucl RBC Auto (Bld) [#/Vol] 9.0 E9/L Normal 4.0-11.0 [facility] Comment on above: Performed By: #### 2 [id number] #### [facility] [address] [place] [address] CHEMISTRYOrdered By: SYSTEM SYSTEM on 02-15-2024 Magnesium [Mass/Vol] 1.7 mg/dL Normal 1.3 - 2 .4 mg/dL Remisol Chem Phosphate [Mass/Vol] 3.8 mg/dL Normal 1.9 - 4 .6 mg/dL Remisol Chem COAGULATIONOrdered By: Nely on Bruce on 02-15-2024 aPTT Coag (PPP) [Time] 28.6 s Normal 25.1 - 36.5 second(s) [facility] Comment on above: Interpretive Data: [...] the same coagulation reagent and instrumentation as [facility]. Currently there are no coagulation studies available worldwide for children to 14 days, and no normal ranges. Heparin therapeutic range (represented by Anti-Factor Xa activity of 0.2 - 0.4 U/mL) corresponds to PTT of 56.6 - 109.0 sec. INR Coag (PPP) [Relative time] 1.09 {INR} Invalid Interpretation Code [facility] Comment on above: Interpretive Data: I NR results are specifically intended to assess patients stabilized on long-term Anticoagulation therapy suggested INR s Less Intensive Anticoagulation 2.0 3.0 Conventional Range 3.0 4.5 PT Coag (PPP) [Time] 12.2 s Normal 9.4 - 1 2.5 second(s) [facility] Comment on above: Interpretive Data: [...] the same coagulation reagent and instrumentation as [facility]. Currently there are no coagulation studies available worldwide for children to 14 days, and no normal ranges. Capillary Glucose POCon 02-03 Glucose [Mass/Vol] 398 mg/dL High 55-99 [facility] Comment on above: Result Comment: Deon ETIENNE Performed By: #### 2 [id number] #### [facility] [address] [place] [address] Glucose [Mass/Vol] 337 mg/dL High 55-99 [facility] Comment on above: Result Comment: Deon ETIENNE Performed By: #### 2 [id number] #### [facility] [address] [place] [address] Glucose [Mass/Vol] 228 mg/dL High 55-99 [facility] Comment on above: Result Comment: Deon ETIENNE Performed By: #### 2 [id number] #### [facility] [address] [place] [address] Glucose [Mass/Vol] 309 mg/dL High 55-99 [facility] Comment on above: Result Comment: Deon hathaway RN/MD Performed By: #### 2 [id number] #### [facility] [address] [place] [address] Interdisciplinary Note - Jorge e Manageron 02-15-2024 Interdisciplinary Note - [employer] Interdisciplinary Note - [employer] CRM to room 309 Patient is awake, alert and oriented. Patient is from home with his spouse. Patient verified PCP, DME and insurance. Patient is here as inpatient. Patient had Right BKA. Patient is assigned to Dr Antonio. Vascular Dr Montes did surgery. Patient is getting transfusion PRBC. Patient will need PT/OT added when appropriate. Patient would like rehab stay. Choices [facility], [facility] and [facility]. Patient was provided CRM contact, white board updated. CRM following DC date when [facility] can take per Dr Antonio patient is not ready for DC now drop in HGB, bleeding at stump and still on IV pain meds Rehab needs him on an oral regimen Normal [facility] Comment on above: Result Comment: Elec tronically Signed By: Raina Aguilar\.br\Date and Time Signed: 02/15/24 14:08 EDT Magnesiumon 02-15-2024 Magnesium [Mass/Vol] 1.7 mg/dL Normal 1.3-2.4 [facility] Comment on above: Performed By: #### 2 [id number] #### [facility] [address] [place] [address] PT & PTTon 02-15-2024 aPTT Coag (PPP) [Time] 28.6 second(s) Normal 25.1-36.5 [facility] Comment on above: Result Comment: Para [...] the same coagulation reagent and instrumentation as [facility]. Currently there are no coagulation studies available worldwide for children to 14 days, and no normal ranges. Heparin therapeutic range (represented by Anti-Factor Xa activity of 0.2 - 0.4 U/mL) corresponds to PTT of 56.6 - 109.0 sec. Performed By: #### 1 [id number] #### [facility] [address] [place] [address] INR Coag (PPP) [Relative time] 1.09 {INR} Invalid Interpretation Code [facility] Comment on above: Result Comment: INR results are specifically intended to assess patients stabilized on long-term Anticoagulation therapy suggested INR?s ?Less Intensive Anticoagulation? 2.0 ? 3.0 Conventional Range 3.0 ? 4.5 Performed By: #### 1 [id number] #### [facility] [address] [place] [address] PT Coag (PPP) [Time] 12.2 second(s) Normal 9.4-12.5 [facility] Comment on above: Result Comment: 15 [...] the same coagulation reagent and instrumentation as [facility]. Currently there are no coagulation studies available worldwide for children to 14 days, and no normal ranges. Performed By: #### 1 [id number] #### [facility] [address] [place] [address] Phosphoruson 02-15-2024 Phosphate [Mass/Vol] 3.8 mg/dL Normal 1.9-4.6 [facility] Comment on above: Performed By: #### 2 [id number] #### [facility] [address] [place] [address] eGFRon 02-15-2024 eGFR 40 mL/min/1.73 m2 Low >=59 [facility] Comment on above: Order Comment: Order added by Discern Expert. Performed By: #### 1 [id number] #### [facility] [address] [place] [address] BMPon 02-14-2024 Anion gap [Moles/Vol] 12 mmol/L Normal 6-16 [facility] Comment on above: Performed By: #### 2 309187 #### [facility] [address] [place] [address] Calcium [Mass/Vol] 8.3 mg/dL Low 8.9-11.1 [facility] Comment on above: Performed By: #### 2 [id number] #### [facility] [address] [place] [address] Chloride [Moles/Vol] 96 mmol/L Low 101-111 [facility] Comment on above: Performed By: #### 2 158605 #### [facility] [address] [place] [address] CO2 [Moles/Vol] 28 mmol/L Normal 21-31 [facility] Comment on above: Performed By: #### 2 442778 #### [facility] [address] [place] [address] Creatinine [Mass/Vol] 1.8 mg/dL High 0.5-1.3 [facility] Comment on above: Performed By: #### 2 099550 #### [facility] [address] [place] [address] Glucose [Mass/Vol] 298 mg/dL High 55-199 [facility] Comment on above: Performed By: #### 2 366583 #### [facility] [address] [place] [address] Potassium [Moles/Vol] 3.7 mmol/L Normal 3.5-5.3 [facility] Comment on above: Performed By: #### 2 473406 #### [facility] [address] [place] [address] Sodium [Moles/Vol] 132 mmol/L Low 135-145 [facility] Comment on above: Performed By: #### 2 115585 #### [facility] [address] [place] [address] Urea nitrogen [Mass/Vol] 21 mg/dL Normal 5-21 [facility] Comment on above: Performed By: #### 2 195993 #### [facility] [address] [place] [address] Urea nitrogen/Creatinine [Mass ratio] 12 No Units Normal 10-20 [facility] Comment on above: Performed By: #### 2 150859 #### [facility] [address] [place] [address] CBC w/ Auto Diffon 4 Basophils/100 WBC (Bld) 1.9 % Normal 0.0-2.0 [facility] Comment on above: Performed By: #### 2 187369 #### [facility] [address] [place] [address] Basophils/Leukocytes Auto (Bld) [Pure # fraction] 0.2 E9/L Normal 0.0-0.2 [facility] Comment on above: Performed By: #### 2 198595 #### [facility] [address] [place] [address] Eosinophils (Bld) [#/Vol] 0.3 E9/L Normal 0.0-0.5 [facility] Comment on above: Performed By: #### 2 897448 #### [facility] [address] [place] [address] Eosinophils/100 WBC (Bld) 3.1 % Normal 0.0-8.0 [facility] Comment on above: Performed By: #### 2 [id number] #### [facility] [address] [place] [address] Erythrocyte distribution width (RBC) [Ratio] 21.1 % High 10.9-14.2 [facility] Comment on above: Performed By: #### 2 855514 #### [facility] [address] [place] [address] Hematocrit (Bld) [Volume fraction] 26.4 % Low 37.7-49.0 [facility] Comment on above: Performed By: #### 2 103651 #### [facility] [address] [place] [address] Hemoglobin (Bld) [Mass/Vol] 8.5 g/dL Low 13.5-17.5 [facility] Comment on above: Performed By: #### 2 668219 #### [facility] [address] [place] [address] Hypochromia Auto Ql (Bld) PRESENT Invalid Interpretation Code [facility] Comment on above: Performed By: #### 2 [id number] #### [facility] [address] [place] [address] Lymphocytes (Bld) [#/Vol] 1.1 E9/L Normal 1.0-4.0 [facility] Comment on above: Performed By: #### 2 773902 #### [facility] [address] [place] [address] Lymphocytes/100 WBC (Bld) 11.3 % Low 14.0-50.0 [facility] Comment on above: Performed By: #### 2 654177 #### [facility] [address] [place] [address] MCH (RBC) [Entitic mass] 23.3 pg Low 27.0-34.0 [facility] Comment on above: Performed By: #### 2 585440 #### [facility] [address] [place] [address] MCHC (RBC) [Mass/Vol] 32.4 g/dL Normal 31.4-36.0 [facility] Comment on above: Performed By: #### 2 578610 #### [facility] [address] [place] [address] MCV (RBC) [Entitic vol] 71.8 fL Low 80.0-100.0 [facility] Comment on above: Performed By: #### 2 [id number] #### [facility] [address] [place] [address] Microcytes Ql (Bld) PRESENT Invalid Interpretation Code [facility] Comment on above: Performed By: #### 2 [id number] #### [facility] [address] [place] [address] Monocytes (Bld) [#/Vol] 1.0 E9/L Normal 0.2-1.0 [facility] Comment on above: Performed By: #### 2 [id number] #### [facility] [address] [place] [address] Neutrophils (Bld) [#/Vol] 7.5 E9/L Normal 2.0-7.5 [facility] Comment on above: Performed By: #### 2 113314 #### [facility] [address] [place] [address] Neutrophils/100 WBC (Bld) 74.1 % Normal 36.0-75.0 [facility] Comment on above: Performed By: #### 2 167476 #### [facility] [address] [place] [address] Platelet mean volume (Bld) [Entitic vol] 8.3 fL Normal 6.4-10.8 [facility] Comment on above: Performed By: #### 2 073053 #### [facility] [address] [place] [address] Platelets (Bld) [#/Vol] 244.0 E9/L Normal 150.0-500. 0 [facility] Comment on above: Performed By: #### 2 486319 #### [facility] [address] [place] [address] RBC (Bld) [#/Vol] 3.7 E12/L Low 4.3-5.9 [facility] Comment on above: Performed By: #### 2 957903 #### [facility] [address] [place] [address] RBC size Nom (Bld) SEE MORPHOLOGY Invalid Interpretation Code [facility] Comment on above: Performed By: #### 2 [id number] #### [facility] [address] [place] [address] WBC corrected for nucl RBC Auto (Bld) [#/Vol] 10.2 E9/L Normal 4.0-11.0 [facility] Comment on above: Performed By: #### 2 706603 #### [facility] [address] [place] [address] CHEMISTRYOrdered By: SYSTEM SYSTEM on 02-14-2024 Magnesium [Mass/Vol] 1.8 mg/dL Normal 1.3 - 2 .4 mg/dL Remisol Chem Phosphate [Mass/Vol] 3.8 mg/dL Normal 1.9 - 4 .6 mg/dL Remisol Chem COAGULATIONOrdered By: Deborah Parks on 02-14-2024 aPTT Coag (PPP) [Time] 28.8 s Normal 25.1 - 36.5 second(s) [facility] Comment on above: Interpretive Data: [...] the same coagulation reagent and instrumentation as [facility]. Currently there are no coagulation studies available worldwide for children to 14 days, and no normal ranges. Heparin therapeutic range (represented by Anti-Factor Xa activity of 0.2 - 0.4 U/mL) corresponds to PTT of 56.6 - 109.0 sec. INR Coag (PPP) [Relative time] 1.04 {INR} Invalid Interpretation Code [facility] Comment on above: Interpretive Data: I NR results are specifically intended to assess patients stabilized on long-term Anticoagulation therapy suggested INR s Less Intensive Anticoagulation 2.0 3.0 Conventional Range 3.0 4.5 PT Coag (PPP) [Time] 11.7 s Normal 9.4 - 1 2.5 second(s) [facility] Comment on above: Interpretive Data: [...] the same coagulation reagent and instrumentation as [facility]. Currently there are no coagulation studies available worldwide for children to 14 days, and no normal ranges. Capillary Glucose POCon 02-03 Glucose [Mass/Vol] 269 mg/dL High 55-99 [facility] Comment on above: Result Comment: Deon ETIENNE Performed By: #### 2 [id number] #### [facility] [address] [place] [address] Glucose [Mass/Vol] 279 mg/dL High 55-99 [facility] Comment on above: Result Comment: Deon ETIENNE Performed By: #### 2 [id number] #### [facility] [address] [place] [address] Glucose [Mass/Vol] 285 mg/dL High 55-99 [facility] Comment on above: Result Comment: Repe at Test Performed By: #### 2 [id number] #### [facility] [address] [place] [address] Glucose [Mass/Vol] 242 mg/dL High 55-99 [facility] Comment on above: Result Comment: Repe at Test Performed By: #### 2 [id number] #### [facility] [address] [place] [address] Interdisciplinary Note - Jorge e Manageron 02-14-2024 Interdisciplinary Note - [employer] Interdisciplinary Note - [employer] This SW rounded with patient in room 309 this morning. Patient is alert, oriented, and involved in his plan of care. He remains agreeable to going to 1) [facility] Acute Rehab - referral pending, 2) [facility] - they have accepted, or 3) [facility] - they have accepted. Acute Rehab is awaiting therapy notes to make their final determination. SW will update patient once determination is received. Patient did request that SW contact his , Yamileth, with an update this afternoon. TC made to Yamileth and she was updated on the above. She voiced that patient has been refusing her recommendation for [facility] Acute Rehab, however SW let her know that he was agreeable this morning. This SW had discussed the differences between Acute Rehab and SNF to patient. Normal [facility] Comment on above: Result Comment: Elec tronically Signed By: Fely Narvaez.nile\Date and Time Signed: 02/14/24 12:15 EDT Interdisciplinary Note - [employer] Interdisciplinary Note - [employer] This SW rounded with patient in room 309 this morning. Patient is alert, oriented, and involved in his plan of care. He remains agreeable to going to 1) [facility] - referral pending, 2) [facility] - they have accepted, or 3) [facility] - they have accepted. Acute Rehab is awaiting therapy notes to make their final determination. SW will update patient once determination is received. Patient did request that SW contact his , Yamileth, with an update this afternoon. Normal [facility] Comment on above: Result Comment: Elec [...] follow daily progressing as pt tolerates. Normal [facility] Magnesiumon 02-14-2024 Magnesium [Mass/Vol] 1.8 mg/dL Normal 1.3-2.4 [facility] Comment on above: Performed By: #### 2 [id number] #### [facility] [address] [place] [address] PT & PTTon 02-14-2024 aPTT Coag (PPP) [Time] 28.8 second(s) Normal 25.1-36.5 [facility] Comment on above: Result Comment: Para [...] the same coagulation reagent and instrumentation as [facility]. Currently there are no coagulation studies available worldwide for children to 14 days, and no normal ranges. Heparin therapeutic range (represented by Anti-Factor Xa activity of 0.2 - 0.4 U/mL) corresponds to PTT of 56.6 - 109.0 sec. Performed By: #### 1 [id number] #### [facility] [address] [place] [address] INR Coag (PPP) [Relative time] 1.04 {INR} Invalid Interpretation Code [facility] Comment on above: Result Comment: INR results are specifically intended to assess patients stabilized on long-term Anticoagulation therapy suggested INR?s ?Less Intensive Anticoagulation? 2.0 ? 3.0 Conventional Range 3.0 ? 4.5 Performed By: #### 1 [id number] #### [facility] [address] [place] [address] PT Coag (PPP) [Time] 11.7 second(s) Normal 9.4-12.5 [facility] Comment on above: Result Comment: 15 [...] the same coagulation reagent and instrumentation as [facility]. Currently there are no coagulation studies available worldwide for children to 14 days, and no normal ranges. Performed By: #### 1 [id number] #### [facility] [address] [place] [address] Phosphoruson 02-14-2024 Phosphate [Mass/Vol] 3.8 mg/dL Normal 1.9-4.6 [facility] Comment on above: Performed By: #### 2 [id number] #### [facility] [address] [place] [address] eGFRon 02-14-2024 eGFR 43 mL/min/1.73 m2 Low >=59 [facility] Comment on above: Order Comment: Order added by Discern Expert. Performed By: #### 1 [id number] #### [facility] [address] [place] [address] BMPon 02-13-2024 Anion gap [Moles/Vol] 11 mmol/L Normal 6-16 [facility] Comment on above: Performed By: #### 2 [id number] #### [facility] [address] [place] [address] Calcium [Mass/Vol] 8.0 mg/dL Low 8.9-11.1 [facility] Comment on above: Performed By: #### 2 [id number] #### [facility] [address] [place] [address] Chloride [Moles/Vol] 99 mmol/L Low 101-111 [facility] Comment on above: Performed By: #### 2 [id number] #### [facility] [address] [place] [address] CO2 [Moles/Vol] 26 mmol/L Normal 21-31 [facility] Comment on above: Performed By: #### 2 [id number] #### [facility] [address] [place] [address] Creatinine [Mass/Vol] 1.6 mg/dL High 0.5-1.3 [facility] Comment on above: Performed By: #### 2 [id number] #### [facility] [address] [place] [address] Glucose [Mass/Vol] 234 mg/dL High 55-199 [facility] Comment on above: Performed By: #### 2 [id number] #### [facility] [address] [place] [address] Potassium [Moles/Vol] 4.0 mmol/L Normal 3.5-5.3 [facility] Comment on above: Performed By: #### 2 [id number] #### [facility] [address] [place] [address] Sodium [Moles/Vol] 132 mmol/L Low 135-145 [facility] Comment on above: Performed By: #### 2 [id number] #### [facility] [address] [place] [address] Urea nitrogen [Mass/Vol] 19 mg/dL Normal 5-21 [facility] Comment on above: Performed By: #### 2 [id number] #### [facility] [address] [place] [address] Urea nitrogen/Creatinine [Mass ratio] 12 No Units Normal 10-20 [facility] Comment on above: Performed By: #### 2 [id number] #### [facility] [address] [place] [address] CBC w/Indiceson 02-13-2024 Erythrocyte distribution width (RBC) [Ratio] 18.8 % High 10.9-14.2 [facility] Comment on above: Performed By: #### 2 [id number] #### [facility] [address] [place] [address] Hematocrit (Bld) [Volume fraction] 19.5 % Low 37.7-49.0 [facility] Comment on above: Performed By: #### 2 [id number] #### [facility] [address] [place] [address] Hemoglobin (Bld) [Mass/Vol] 6.3 g/dL Abnormal 13.5-17.5 [facility] Comment on above: Result Comment: Crit ical Result Verified by Repeat Analysis Results called to DAVID WELSH by BRAVO and read back on 02/13/2024 05:48:17. Performed By: #### 2 [id number] #### [facility] [address] [place] [address] Hypochromia Auto Ql (Bld) PRESENT Invalid Interpretation Code [facility] Comment on above: Performed By: #### 2 [id number] #### [facility] [address] [place] [address] MCH (RBC) [Entitic mass] 21.6 pg Low 27.0-34.0 [facility] Comment on above: Performed By: #### 2 [id number] #### [facility] [address] [place] [address] MCHC (RBC) [Mass/Vol] 32.3 g/dL Normal 31.4-36.0 [facility] Comment on above: Performed By: #### 2 [id number] #### [facility] [address] [place] [address] MCV (RBC) [Entitic vol] 67.0 fL Low 80.0-100.0 [facility] Comment on above: Performed By: #### 2 [id number] #### [facility] [address] [place] [address] Microcytes Ql (Bld) PRESENT Invalid Interpretation Code [facility] Comment on above: Performed By: #### 2 [id number] #### [facility] [address] [place] [address] Platelet 245.0 E9/L Normal 150.0-500. 0 [facility] Comment on above: Performed By: #### 2 [id number] #### [facility] [address] [place] [address] Platelet mean volume (Bld) [Entitic vol] 8.2 fL Normal 6.4-10.8 [facility] Comment on above: Performed By: #### 2 [id number] #### [facility] [address] [place] [address] RBC (Bld) [#/Vol] 2.9 E12/L Low 4.3-5.9 [facility] Comment on above: Performed By: #### 2 [id number] #### [facility] [address] [place] [address] RBC size Nom (Bld) SEE MORPHOLOGY Invalid Interpretation Code [facility] Comment on above: Performed By: #### 2 [id number] #### [facility] [address] [place] [address] WBC corrected for nucl RBC Auto (Bld) [#/Vol] 12.9 E9/L High 4.0-11.0 [facility] Comment on above: Performed By: #### 2 [id number] #### [facility] [address] [place] [address] CHEMISTRYOrdered By: Simon Helm on 02-13-2024 HbA1c (Bld) [Mass fraction] 10.3 % High <=5.9% [facility] ChemAutoSS CHEMISTRYOrdered By: SYSTEM SYSTEM on 02-13-2024 Magnesium [Mass/Vol] 1.3 mg/dL Normal 1.3 - 2 .4 mg/dL Remisol Chem Phosphate [Mass/Vol] 2.5 mg/dL Normal 1.9 - 4 .6 mg/dL Remisol Chem COAGULATIONOrdered By: Pietro Garibay on 02-13-2024 aPTT Coag (PPP) [Time] 27.5 s Normal 25.1 - 36.5 second(s) [facility] Auto [facility] Comment on above: Interpretive Data: [...] the same coagulation reagent and instrumentation as [facility]. Currently there are no coagulation studies available worldwide for children to 14 days, and no normal ranges. Heparin therapeutic range (represented by Anti-Factor Xa activity of 0.2 - 0.4 U/mL) corresponds to PTT of 56.6 - 109.0 sec. INR Coag (PPP) [Relative time] 1.11 {INR} Invalid Interpretation Code [facility] Comment on above: Interpretive Data: I NR results are specifically intended to assess patients stabilized on long-term Anticoagulation therapy suggested INR s Less Intensive Anticoagulation 2.0 3.0 Conventional Range 3.0 4.5 PT Coag (PPP) [Time] 12.5 s Normal 9.4 - 1 2.5 second(s) [facility] Comment on above: Interpretive Data: [...] the same coagulation reagent and instrumentation as [facility]. Currently there are no coagulation studies available worldwide for children to 14 days, and no normal ranges. Capillary Glucose POCon 02-03 Glucose [Mass/Vol] 332 mg/dL High 55-99 [facility] Comment on above: Result Comment: eDon ETIENNE Performed By: #### 2 [id number] #### [facility] [address] [place] [address] Glucose [Mass/Vol] 194 mg/dL High 55-99 [facility] Comment on above: Result Comment: Deon ETIENNE Performed By: #### 2 [id number] #### [facility] [address] [place] [address] Glucose [Mass/Vol] 195 mg/dL High 55-99 [facility] Comment on above: Result Comment: Deon ETIENNE Performed By: #### 2 [id number] #### [facility] [address] [place] [address] Glucose [Mass/Vol] 194 mg/dL High 55-99 [facility] Comment on above: Result Comment: Deon ETIENNE Performed By: #### 2 [id number] #### [facility] [address] [place] [address] Glucose [Mass/Vol] 324 mg/dL High 55-99 [facility] Comment on above: Result Comment: Deon ETIENNE Performed By: #### 2 [id number] #### [facility] [address] [place] [address] Coding Queryon 02-13-2024 Coding Query Coding Query [...] desired or expected. Thank you!eliz [phone] Normal [facility] Hct & Hgbon 02-13-2024 Hematocrit (Bld) [Volume fraction] 24.4 % Low 37.7-49.0 [facility] Comment on above: Performed By: #### 1 [id number] #### [facility] [address] [place] [address] Hemoglobin (Bld) [Mass/Vol] 7.9 g/dL Low 13.5-17.5 [facility] Comment on above: Performed By: #### 1 [id number] #### [facility] [address] [place] [address] [id number] 02-13-2024 HbA1c (Bld) [Mass fraction] 10.3 % High <=5.9 [facility] Comment on above: Performed By: #### 7 [id number] #### [facility] [address] [place] [address] Interdisciplinary Note - Jorge e Manageron 02-13-2024 Interdisciplinary Note - [employer] Interdisciplinary Note - [employer] CRM to room 309 Patient is awake, [...] CRM did try to call Spouse at [phone] and left VM. CRM did leave printed SNF list in room. Patient was provided CRM contact, white board updated. CRM following DC date TBD. CRM will get updates at 10 AM from hospitalist called CRM choices of [facility], [facility] and [facility] for rehab [facility] Comment on above: Result Comment: Michael tronically Signed By: Raina Aguilar\.br\Date and Time Signed: 02/13/24 13:10 EDT Interdisciplinary Note - [employer] Interdisciplinary Note - [employer] CRM to room 309 Patient is awake, [...] CRM did try to call Spouse at [phone] and left VM. CRM did leave printed SNF list in room. Patient was provided CRM contact, white board updated. CRM following DC date TBD. CRM will get updates at 10 AM from hospitalist [facility] Comment on above: Result Comment: Michael navarretenically Signed By: Raina Aguilar\.br\Date and Time Signed: 02/13/24 09:21 EDT Interdisciplinary Note - Maria Elena n 02-13-2024 Interdisciplinary Note - OT Interdisciplinary Note - OT 02/13/24: OT orders received, chart reviewed. Holding OT eval this date as Pt has critically low Hbg levels. Will try again with OT eval when Pt is medically appropriate. Normal [facility] Interdisciplinary Note - PTo n 02-13-2024 Interdisciplinary Note - PT Interdisciplinary Note - PT Order received and chart reviewed. Pt with critical Hgb levels at this time. Will hold and attempt tomorrow Normal [facility] Magnesiumon 02-13-2024 Magnesium [Mass/Vol] 1.3 mg/dL Normal 1.3-2.4 [facility] Comment on above: Performed By: #### 2 [id number] #### [facility] [address] [place] [address] Main OR Intraoperative Recor don 02-13-2024 Main OR Intraoperative Record Main OR Intraoperative Record IntraOp Document Type FT Summary Primary Physician: Mike Montes MD Finalized Date/Time: 02/13/24 13:38:10 Pt. Name: MATTEO CHRISTIAN, MYRA Aceves/Sex: 1965 Male Med Rec #: [id number] Physician: Mike Montes MD Financial #: [id number] Pt. Type: I Room/Bed: [place] [address] Admit/Disch: 02/12/24 11:13:26 - Institution: Case Times [...] Hopkins Role Performed Anesthesiologist Surgeon - Primary Station Engineer Main Line - Primary Documentation Specialist Time In 02/12/24 13:26:00 02/12/24 13:45:00 02/12/24 13:26:00 Time Out 02/12/24 14:44:00 02/12/24 14:31:00 02/12/24 14:44:00 Procedure KNEE AMPUTATION KNEE AMPUTATION KNEE AMPUTATION BELOW(Right) BELOW(Right) BELOW(Right) Comments , anesthesia material crew supervisor Last Modified By: Sara STERN, Tyree Ruiz RN, Tyree Mancera RN 02/12/24 14:44:09 02/12/24 14:44:09 02/12/24 14:44:09 Entry 4 Entry 5 Entry 6 Case Attendee Robinson STERN, Jenise E PerceAhsan chavis CST, Madison A Role Performed Station Engineer Main Line - Primary SCREW MACHINE SETTER/SA Scrub - Primary Time In 02/12/24 13:26:00 02/12/24 13:26:00 02/12/24 13:26:00 Time Out 02/12/24 14:44:00 02/12/24 14:44:00 02/12/24 14:44:00 Procedure KNEE AMPUTATION KNEE AMPUTATION KNEE AMPUTATION BELOW(Right) BELOW(Right) BELOW(Right) Comments in orientation Last Modified By: Sara STERN, Tyree Ruiz RN, Tyree Ruiz RN, Tyree Hopkins 02/12/24 14:44:09 02/12/24 14:44:09 02/12/24 14:44:09 General Comments: Lima Puckett- student development advisor, observing surgical case. 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 Postop Diagnosis I70.261-Atherosclerosis Outcomes Met? Yes of [place] arteries of extremities with gangrene, right leg. [...] and tissue Entry 1 Skin Integrity Intact, [place], Warm, & Skin Abnormality No Dry Outcomes Met? Yes Last Modified By: Tyree Ruiz RN 02/12/24 12:50:23 Post-Care Text: The patient is free from signs an (more content not included)... Normal [facility] PT & PTTon 02-13-2024 aPTT Coag (PPP) [Time] 27.5 second(s) Normal 25.1-36.5 [facility] Comment on above: Result Comment: Para [...] the same coagulation reagent and instrumentation as [facility]. Currently there are no coagulation studies available worldwide for children to 14 days, and no normal ranges. Heparin therapeutic range (represented by Anti-Factor Xa activity of 0.2 - 0.4 U/mL) corresponds to PTT of 56.6 - 109.0 sec. Performed By: #### 1 [id number] #### [facility] [address] [place] [address] INR Coag (PPP) [Relative time] 1.11 {INR} Invalid Interpretation Code [facility] Comment on above: Result Comment: INR results are specifically intended to assess patients stabilized on long-term Anticoagulation therapy suggested INR?s ?Less Intensive Anticoagulation? 2.0 ? 3.0 Conventional Range 3.0 ? 4.5 Performed By: #### 1 [id number] #### [facility] [address] [place] [address] PT Coag (PPP) [Time] 12.5 second(s) Normal 9.4-12.5 [facility] Comment on above: Result Comment: 15 [...] the same coagulation reagent and instrumentation as [facility]. Currently there are no coagulation studies available worldwide for children to 14 days, and no normal ranges. Performed By: #### 1 [id number] #### [facility] [address] [place] [address] Phosphoruson 02-13-2024 Phosphate [Mass/Vol] 2.5 mg/dL Normal 1.9-4.6 [facility] Comment on above: Performed By: #### 2 [id number] #### [facility] [address] [place] [address] RCOon 02-13-2024 # of Units 2 Invalid Interpretation Code [facility] Comment on above: Result Comment: 02/12 6:32 [id number] Blood product ready and called to David Hoskins at 02/13/2024 06:32:44 EDT by [email or web address]. Performed By: #### 1 [id number] #### [facility] [address] [place] [address] Date Required 20240213 Invalid Interpretation Code [facility] Comment on above: Performed By: #### 1 [id number] #### [facility] [address] [place] [address] Order to Transfuse Yes Normal [facility] Comment on above: Performed By: #### 1 [id number] #### [facility] [address] [place] [address] Product Type None Required Invalid Interpretation Code [facility] Comment on above: Performed By: #### 1 [id number] #### [facility] [address] [place] [address] eGFRon 02-13-2024 eGFR 49 mL/min/1.73 m2 Low >=59 [facility] Comment on above: Order Comment: Order added by Discern Expert. Performed By: #### 1 [id number] #### [facility] [address] [place] [address] ABO/Rhon 02-12-2024 ABO/Rh Positive Invalid Interpretation Code [facility] Comment on above: Performed By: #### 2 [id number] #### [facility] [address] [place] [address] ABO/Rh History Checkon 02-11 ABO/Rh History Check Type verified by second s Normal [facility] Comment on above: Performed By: #### 1 [id number] #### [facility] [address] [place] [address] ABO/Rh Retypeon 02-12-2024 ABO/Rh Retype Interp Positive Invalid Interpretation Code [facility] Comment on above: Performed By: #### 1 [id number] #### [facility] [address] [place] [address] ABSCon 02-12-2024 ABSC Gel Interp Negative Normal [facility] Comment on above: Performed By: #### 1 [id number] #### [facility] [address] [place] [address] BLOOD BANKOrdered By: Rizwana Helm on 02-12-2024 ABO/Rh Retype Interp Positive Invalid Interpretation Code [facility] BB Subsection BLOOD BANKOrdered By: Cassie Gomez on 02-12-2024 ABO/Rh Interp Positive Invalid Interpretation Code [facility] BB Subsection ABSC Gel Interp Negative (02/12/24 12:00 PM) Normal [facility] BB Subsection BMPon 02-12-2024 Anion gap [Moles/Vol] 12 mmol/L Normal 6-16 [facility] Comment on above: Performed By: #### 2 [id number] #### [facility] [address] [place] [address] Calcium [Mass/Vol] 8.1 mg/dL Low 8.9-11.1 [facility] Comment on above: Performed By: #### 2 [id number] #### [facility] [address] [place] [address] Chloride [Moles/Vol] 102 mmol/L Normal 101-111 [facility] Comment on above: Performed By: #### 2 [id number] #### [facility] [address] [place] [address] CO2 [Moles/Vol] 26 mmol/L Normal 21-31 [facility] Comment on above: Performed By: #### 2 [id number] #### [facility] [address] [place] [address] Creatinine [Mass/Vol] 1.5 mg/dL High 0.5-1.3 [facility] Comment on above: Performed By: #### 2 [id number] #### [facility] [address] [place] [address] Glucose [Mass/Vol] 274 mg/dL High 55-199 [facility] Comment on above: Performed By: #### 2 [id number] #### [facility] [address] [place] [address] Potassium [Moles/Vol] 4.5 mmol/L Normal 3.5-5.3 [facility] Comment on above: Performed By: #### 2 [id number] #### [facility] [address] [place] [address] Sodium [Moles/Vol] 135 mmol/L Normal 135-145 [facility] Comment on above: Performed By: #### 2 [id number] #### [facility] [address] [place] [address] Urea nitrogen [Mass/Vol] 16 mg/dL Normal 5-21 [facility] Comment on above: Performed By: #### 2 [id number] #### [facility] [address] [place] [address] Urea nitrogen/Creatinine [Mass ratio] 11 No Units Normal 10-20 [facility] Comment on above: Performed By: #### 2 [id number] #### [facility] [address] [place] [address] Blood Bank ID#on 02-12-2024 BBID# [id number] Invalid Interpretation Code [facility] Comment on above: Performed By: #### 1 [id number] #### [facility] [address] [place] [address] CBC w/Indiceson 02-12-2024 Erythrocyte distribution width (RBC) [Ratio] 18.5 % High 10.9-14.2 [facility] Comment on above: Performed By: #### 2 [id number] #### [facility] [address] [place] [address] Hematocrit (Bld) [Volume fraction] 23.5 % Low 37.7-49.0 [facility] Comment on above: Performed By: #### 2 [id number] #### [facility] [address] [place] [address] Hemoglobin (Bld) [Mass/Vol] 7.2 g/dL Low 13.5-17.5 [facility] Comment on above: Performed By: #### 2 [id number] #### [facility] [address] [place] [address] Hypochromia Auto Ql (Bld) PRESENT Invalid Interpretation Code [facility] Comment on above: Performed By: #### 2 [id number] #### [facility] [address] [place] [address] MCH (RBC) [Entitic mass] 21.1 pg Low 27.0-34.0 [facility] Comment on above: Performed By: #### 2 [id number] #### [facility] [address] [place] [address] MCHC (RBC) [Mass/Vol] 30.7 g/dL Low 31.4-36.0 [facility] Comment on above: Performed By: #### 2 [id number] #### [facility] [address] [place] [address] MCV (RBC) [Entitic vol] 68.8 fL Low 80.0-100.0 [facility] Comment on above: Performed By: #### 2 [id number] #### [facility] [address] [place] [address] Microcytes Ql (Bld) PRESENT Invalid Interpretation Code [facility] Comment on above: Performed By: #### 2 [id number] #### [facility] [address] [place] [address] Platelet mean volume (Bld) [Entitic vol] 8.0 fL Normal 6.4-10.8 [facility] Comment on above: Performed By: #### 2 [id number] #### [facility] [address] [place] [address] Platelets (Bld) [#/Vol] 244.0 E9/L Normal 150.0-500. 0 [facility] Comment on above: Performed By: #### 2 [id number] #### [facility] [address] [place] [address] Polychromasia LM Ql (Bld) PRESENT Invalid Interpretation Code [facility] Comment on above: Performed By: #### 2 [id number] #### [facility] [address] [place] [address] RBC (Bld) [#/Vol] 3.4 E12/L Low 4.3-5.9 [facility] Comment on above: Performed By: #### 2 [id number] #### [facility] [address] [place] [address] RBC size Nom (Bld) NORMAL Invalid Interpretation Code [facility] Comment on above: Performed By: #### 2 [id number] #### [facility] [address] [place] [address] Target cells LM Ql (Bld) PRESENT Invalid Interpretation Code [facility] Comment on above: Performed By: #### 2 [id number] #### [facility] [address] [place] [address] WBC corrected for nucl RBC Auto (Bld) [#/Vol] 14.7 E9/L High 4.0-11.0 [facility] Comment on above: Performed By: #### 2 [id number] #### [facility] [address] [place] [address] CHEMISTRYOrdered By: SYSTEM SYSTEM on 02-12-2024 Glucose [Mass/Vol] 580 mg/dL Invalid Interpretation Code 55 - 199 mg/dL Rem[facility] Comment on above: Result Comment: Crit ical Result Verified by Repeat Analysis Critical Result [id number] Called to and read back by: DAVID WELSH at: 02/12/2024 21:01:57 by:BAB Capillary Glucose POCon Glucose [Mass/Vol] 441 mg/dL High 55-99 [facility] Comment on above: Result Comment: Deon hathaway RN/ Performed By: #### 2 [id number] #### [facility] [address] [place] [address] Glucose [Mass/Vol] mg/dL Abnormal 55-99 [facility] Comment on above: Result Comment: Deon ETIENNE Performed By: #### 2 [id number] #### [facility] [address] [place] [address] Glucose [Mass/Vol] mg/dL Abnormal 55-99 [facility] Comment on above: Result Comment: Deon hathaway RN/ Performed By: #### 2 [id number] #### [facility] [address] [place] [address] Glucose [Mass/Vol] 259 mg/dL High 55-99 [facility] Comment on above: Result Comment: Repe at Test Performed By: #### 2 [id number] #### [facility] [address] [place] [address] Glucose [Mass/Vol] 205 mg/dL High 55-99 [facility] Comment on above: Result Comment: Deon hathaway RN/ Performed By: #### 2 [id number] #### [facility] [address] [place] [address] Glucoseon 02-12-2024 Glucose [Mass/Vol] 580 mg/dL Abnormal 55-199 [facility] Comment on above: Result Comment: Crit ical Result Verified by Repeat Analysis Critical Result [id number] Called to and read back by: DAVID WELSH at: 02/12/2024 21:01:57 by:BRAVO Performed By: #### 2 [id number] #### [facility] [address] [place] [address] HEMATOLOGYOrdered By: SYSTEM SYSTEM on 02-12-2024 Polychromasia LM Ql (Bld) PRESENT *NA* (02/12/24 4:47 PM) Invalid Interpretation Code Remisol Heme Target cells LM Ql (Bld) PRESENT *NA* (02/12/24 4:47 PM) Invalid Interpretation Code Remisol Heme Hct & Hgbon 02-12-2024 Hematocrit (Bld) [Volume fraction] 22.7 % Low 37.7-49.0 [facility] Comment on above: Performed By: #### 1 [id number] #### [facility] [address] [place] [address] Hemoglobin (Bld) [Mass/Vol] 7.3 g/dL Low 13.5-17.5 [facility] Comment on above: Performed By: #### 1 [id number] #### [facility] [address] [place] [address] Main OR Intraoperative Recor don 02-12-2024 Main OR Intraoperative Record Main OR Intraoperative Record IntraOp Document Type FT Summary Primary Physician: Mike Montes MD Finalized Date/Time: 02/12/24 14:48:28 Pt. Name: MATTEO , MYRA Aceves/Sex: 1965 Male Med Rec #: [id number] Physician: Mike Montes MD Financial #: [id number] Pt. 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 supervisor Last Modified By: Sara STERN, Tyree Ruiz RN, Tyree Mancera RN 02/12/24 14:44:09 02/12/24 14:44:09 02/12/24 14:44:09 Entry 4 Entry 5 Entry 6 Case Attendee Robinson STERN, Jenise Jaquez CST, Radha Corona Role Performed Station Engineer Main Line - Primary SCREW MACHINE SETTER/SA Scrub - Primary Time In 02/12/24 13:26:00 02/12/24 13:26:00 02/12/24 13:26:00 Time Out 02/12/24 14:44:00 02/12/24 14:44:00 02/12/24 14:44:00 Procedure KNEE AMPUTATION KNEE AMPUTATION KNEE AMPUTATION BELOW(Right) BELOW(Right) BELOW(Right) Comments in orientation Last Modified By: Sara STERN, Tyree Ruiz RN, Tyree Mancera RN 02/12/24 14:44:09 02/12/24 14:44:09 02/12/24 14:44:09 General Comments: Lima Puckett- student development advisor, observing surgical case. 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 Postop Diagnosis I70.261-Atherosclerosis Outcomes Met? Yes of [place] arteries of extremities with gangrene, right leg. [...] and tissue Entry 1 Skin Integrity Intact, [place], Warm, & Skin Abnormality No Dry Outcomes Met? Yes Last Modified By: Tyree Ruiz RN 02/12/24 12:50:23 Post-Care Text: The patient is free from signs and symptoms of injury caused by extraneous objects Patient Positioning FT Pre-Ca (more content not included)... Normal [facility] Main OR PACU I Recordon Main OR PACU I Record Main OR PACU I Rec ord PACU Phase I Document Type FT Summary Primary Physician: Mike Montes MD Finalized Date/Time: 02/12/24 17:14:55 Pt. Name: MYRA PICKARD SR/Sex: 1965 Male Med Rec #: [id number] Physician: Mike Montes MD Financial #: [id number] Pt. Type: A Room/Bed: [place] [address] Admit/Disch: 02/12/24 11:13:26 - Institution: Case Times [...] By: Lima Bolaños RN 02/12/24 17:14 Normal [facility] Main OR Preoperative Recordo n 02-12-2024 Main OR Preoperative Record Main OR Preoperative Record PreOp Document Type FT Summary Primary Physician: Mike Montes MD Finalized Date/Time: 02/12/24 13:26:50 Pt. Name: MATTEO CHRISTIANMYRA/Sex: 1965 Male Med Rec #: [id number] Physician: Mike Montes MD Financial #: [id number] Pt. Type: A Room/Bed: [place] [address] Admit/Disch: 02/12/24 11:13:26 - Institution: Case Times [...] By: Tyree Ruiz RN 02/12/24 13:26 Normal [facility] PT & PTTon 02-12-2024 aPTT Coag (PPP) [Time] 28.0 second(s) Normal 25.1-36.5 [facility] Comment on above: Result Comment: Para [...] the same coagulation reagent and instrumentation as [facility]. Currently there are no coagulation studies available worldwide for children to 14 days, and no normal ranges. Heparin therapeutic range (represented by Anti-Factor Xa activity of 0.2 - 0.4 U/mL) corresponds to PTT of 56.6 - 109.0 sec. Performed By: #### 1 [id number] #### [facility] [address] [place] [address] INR Coag (PPP) [Relative time] 1.12 {INR} Invalid Interpretation Code [facility] Comment on above: Result Comment: INR results are specifically intended to assess patients stabilized on long-term Anticoagulation therapy suggested INR?s ?Less Intensive Anticoagulation? 2.0 ? 3.0 Conventional Range 3.0 ? 4.5 Performed By: #### 1 [id number] #### [facility] [address] [place] [address] PT Coag (PPP) [Time] 12.6 second(s) High 9.4-12.5 [facility] Comment on above: Result Comment: 15 [...] the same coagulation reagent and instrumentation as [facility]. Currently there are no coagulation studies available worldwide for children to 14 days, and no normal ranges. Performed By: #### 1 [id number] #### [facility] [address] [place] [address] eGFRon 02-12-2024 eGFR 53 mL/min/1.73 m2 Low >=59 [facility] Comment on above: Order Comment: Order added by Discern Expert. Performed By: #### 1 [id number] #### [facility] [address] [place] [address] Activated partial thrombopla stin time (aPTT) in platelet poor plasma by coagulation aon 02-08-2024 aPTT Coag (PPP) [Time] 25.6 s 22.3-36.2 [facility] aPTT Coag (PPP) [Time] Activated partial thromboplastin time (aPTT) in platelet poor plasma by coagulation a 22.3-36.2 [facility] Basophils Auto (Bld) [#/Vol] on 02-08-2024 Basophils (Bld) [#/Vol] 0.1 10 3/uL 0.0-0.1 [facility] Basophils (Bld) [#/Vol] Automated basophil count 0.0-0.1 [facility] Basophils/100 WBC Auto (Bld) on 02-08-2024 Basophils/100 WBC (Bld) 0.7 % 0.2-2.0 [facility] Basophils/100 WBC (Bld) Automated basophil % 0.2-2.0 [facility] Eosinophils/100 WBC Auto (Bl d)on 02-08-2024 Eosinophils/100 WBC (Bld) 3.1 % 0.9-7.0 [facility] Eosinophils/100 WBC (Bld) Automated eosinophil % 0.9-7.0 [facility] Erythrocyte distribution wid th Auto (RBC) [Ratio]on 02-08-2024 Erythrocyte distribution width (RBC) [Ratio] 16.3 % High 11.0-15.0 [facility] Erythrocyte distribution width (RBC) [Ratio] Erythrocyte distribution width [Ratio] by Automated count High 11.0-15.0 [facility] Estimated glomerular filtrat ion rate (GFR) non- Americanon 02-08-2024 GFR/1.73 sq M.predicted among non-blacks MDRD (S/P/Bld) [Vol rate/Area] 38 mL/min/{1.73_m2} Low >=60 [facility] GFR/1.73 sq M.predicted among non-blacks MDRD (S/P/Bld) [Vol rate/Area] Estimated glomerular filtration rate (GFR) non- Low >=60 [facility] Hematocrit Auto (Bld) [Volum e fraction]on 02-08-2024 Hematocrit (Bld) [Volume fraction] 29.8 % Low 42.0-54.0 [facility] Hematocrit (Bld) [Volume fraction] Hematocrit [Volume Fraction] of Blood by Automated count Low 42.0-54.0 [facility] Hemoglobin [Mass/volume] in Bloodon 02-08-2024 Hemoglobin (Bld) [Mass/Vol] 9.1 g/dL Low 14.0-18.0 [facility] Hemoglobin (Bld) [Mass/Vol] Hemoglobin [Mass/volume] in Blood Low 14.0-18.0 [facility] INR in Platelet poor plasma by Coagulation assayon 02-08-2024 INR Coag (PPP) [Relative time] 1.02 {INR} [facility] Comment on above: DESIRED INR:2.0-3.0 CONDITIONS NOT LISTED BELOW2.5-3.5 FOR PROSTHETIC HEART VALVE REPLACEMENT2.5-3.5 RECURRENT THROMBOSIS INR Coag (PPP) [Relative time] INR in Platelet poor plasma by Coagulation assay [facility] Comment on above: DESIRED INR:2.0-3.0 CONDITIONS NOT LISTED BELOW2.5-3.5 FOR PROSTHETIC HEART VALVE REPLACEMENT2.5-3.5 RECURRENT THROMBOSIS Laboratory - Chemistry and C hemistry - challengeon 02-08-2024 Calcium [Mass/Vol] 9.4 mg/dL 8.5-10.[address] [facility] Chloride [Moles/Vol] 99 mmol/L 98-107 [facility] CO2 [Moles/Vol] 28.9 mmol/L 21.0-32.0 [facility] Creatinine [Mass/Vol] 1.84 mg/dL High 0.70-1.30 [facility] GFR/1.73 sq M.predicted MDRD (S/P/Bld) [Vol rate/Area] 46 mL/min/{1.73_m2} Low >=60 [facility] Glucose [Mass/Vol] 184 mg/dL High 74-[address] [facility] Potassium [Moles/Vol] 4.0 mmol/L 3.5-5.1 [facility] Sodium [Moles/Vol] 138 mmol/L 136-[address] [facility] Urea nitrogen [Mass/Vol] 21.0 mg/dL High 7.0-18.0 [facility] Urea nitrogen/Creatinine [Mass ratio] 11.4 mg/mg [facility] Laboratory - Hematology and Cell countson 02-08-2024 Immature granulocytes/100 WBC (Bld) 0.4 % 0.0-0.5 [facility] Leukocytes [#/volume] correc jorge for nucleated erythrocytes in Blood by Automated counon 02-08-2024 WBC corrected for nucl RBC Auto (Bld) [#/Vol] 10.1 10 3/uL 4.0-11.0 [facility] WBC corrected for nucl RBC Auto (Bld) [#/Vol] Leukocytes [#/volume] corrected for nucleated erythrocytes in Blood by Automated coun 4.0-11.0 [facility] Lymphocytes Auto (Bld) [#/Vo l]on 02-08-2024 Lymphocytes (Bld) [#/Vol] 1.6 10 3/uL 1.2-3.8 [facility] Lymphocytes (Bld) [#/Vol] Lymphocytes [#/volume] in Blood by Automated count 1.2-3.8 [facility] Lymphocytes/100 WBC Auto (Bl d)on 02-08-2024 Lymphocytes/100 WBC (Bld) 15.6 % Low 20.5-60.0 [facility] Lymphocytes/100 WBC (Bld) Lymphocytes/100 leukocytes in Blood by Automated count Low 20.5-60.0 [facility] MCH Auto (RBC) [Entitic mass ]on 02-08-2024 MCH (RBC) [Entitic mass] 21.9 pg Low 25.9-34.0 [facility] MCH (RBC) [Entitic mass] MCH [Entitic mass] by Automated count Low 25.9-34.0 [facility] MCHC Auto (RBC) [Mass/Vol]on 02-08-2024 MCHC (RBC) [Mass/Vol] 30.5 g/dL 29.9-35.2 [facility] MCHC (RBC) [Mass/Vol] MCHC [Mass/volume] by Automated count 29.9-35.2 [facility] MCV Auto (RBC) [Entitic vol] on 02-08-2024 MCV (RBC) [Entitic vol] 71.8 fL Low 80.0-94.0 [facility] MCV (RBC) [Entitic vol] MCV [Entitic volume] by Automated count Low 80.0-94.0 [facility] Monocytes Auto (Bld) [#/Vol] on 02-08-2024 Monocytes (Bld) [#/Vol] 0.8 10 3/uL 0.3-0.8 [facility] Monocytes (Bld) [#/Vol] Automated blood monocyte count 0.3-0.8 [facility] Monocytes/100 WBC Auto (Bld) on 02-08-2024 Monocytes/100 WBC (Bld) 7.5 % 1.7-12.0 [facility] Monocytes/100 WBC (Bld) Automated monocyte % 1.7-12.0 [facility] Neutrophils Auto (Bld) [#/Vo l]on 02-08-2024 Neutrophils (Bld) [#/Vol] 7.4 10 3/uL High 1.4-6.5 [facility] Neutrophils (Bld) [#/Vol] Neutrophils [#/volume] in Blood by Automated count High 1.4-6.5 [facility] Neutrophils/100 WBC Auto (Bl d)on 02-08-2024 Neutrophils/100 WBC (Bld) 72.7 % 43.0-75.0 [facility] Neutrophils/100 WBC (Bld) Automated neutrophil % 43.0-75.0 [facility] No Panel Informationon 02-07 Eosinophils # (Auto) 0.3 10 3/uL 0.0-0.7 [facility] Immature Granulocyte # (Auto) 0.04 10 3/uL High 0.00-0.03 [facility] 11.4 [facility] 0.3 10 3/uL 0.0-0.7 [facility] 21.0 mg/dL High 7.0-18.0 [facility] 9.4 mg/dL 8.5-10.1 [facility] 99 mmol/L 98-107 [facility] 28.9 mmol/L 21.0-32.0 [facility] 0.04 10 3/uL High 0.00-0.03 [facility] 1.84 mg/dL High 0.70-1.30 [facility] 0.4 % 0.0-0.5 [facility] 46 Low >=60 [facility] 184 mg/dL High 74-106 [facility] 4.0 mmol/L 3.5-5.1 [facility] 138 mmol/L 136-145 [facility] Platelet mean volume Auto (B ld) [Entitic vol]on 02-08-2024 Platelet mean volume (Bld) [Entitic vol] 10.7 fL 9.5-13.5 [facility] Platelet mean volume (Bld) [Entitic vol] Platelet mean volume [Entitic volume] in Blood by Automated count .5-13.5 [facility] Platelets Auto (Bld) [#/Vol] on 02-08-2024 Platelets (Bld) [#/Vol] 322 10 3/uL 150-450 [facility] Platelets (Bld) [#/Vol] Platelets [#/volume] in Blood by Automated count 150-450 [facility] Prothrombin time (PT)on PT Coag (PPP) [Time] 10.8 s 9.0-11.6 [facility] PT Coag (PPP) [Time] Prothrombin time (PT) 9.0- 11.6 [facility] RBC Auto (Bld) [#/Vol]on RBC (Bld) [#/Vol] 4.15 10 6/uL Low 4.70-6.10 [facility] RBC (Bld) [#/Vol] Erythrocytes [#/volu me] in Blood by Automated count Low 4.70-6.10 [facility] Serum or plasma anion gap de terminationon 02-08-2024 Anion gap [Moles/Vol] 14.1 mmol/L [facility] Anion gap [Moles/Vol] Serum or plasma an ion gap determination [facility] ALL CBC WITH AUTO DIFFon BASOPHILS ABSOLUTE AUTO 0.1 [facility] Basophils/100 WBC (Bld) 1.2 % 0.2 - 2.0 % [facility] Eosinophils/100 WBC (Bld) 2.9 % 0.9 - 7.0 % [facility] Erythrocyte distribution width (RBC) [Ratio] 16.4 % High 11.0 - 15.0 % [facility] Hematocrit (Bld) [Volume fraction] 28.7 % Low 42.0 - 54.0 % [facility] Hemoglobin (Bld) [Mass/Vol] 8.7 g/dL Low 14.0 - 18.0 g/dL [facility] IMMATURE GRANULOCYTES ABS AUTO 0.06 High [facility] Immature granulocytes/100 WBC (Bld) 0.7 % High 0.0 - 0.5 % [facility] Interpretation and review of laboratory results Abnormal [facility] LYMPHOCYTES ABSOLUTE AUTO 1.8 [facility] Lymphocytes/100 WBC (Bld) 21.5 % 20.5 - 60.0 % [facility] MCH (RBC) [Entitic mass] 22.3 pg Low 25.9 - 34.0 pg [facility] MCHC (RBC) [Mass/Vol] 30.3 g/dL 29.9 - 35.2 g/dL [facility] MCV (RBC) [Entitic vol] 73.6 fL Low 80.0 - 94.0 fL [facility] MONOCYTES ABSOLUTE AUTO 0.7 [facility] Monocytes/100 WBC (Bld) 8.7 % 1.7 - 12.0 % [facility] NEUTROPHILS ABSOLUTE AUTO 5.4 [facility] Neutrophils/100 WBC (Bld) 65.0 % 43.0 - 75.0 % [facility] Platelet mean volume (Bld) [Entitic vol] 10.4 fL 9.5 - 13.5 fL [facility] 397 [facility] RBC 3.90 Low [facility] WBC 8.3 [facility] Activated partial thrombopla stin time (aPTT) in platelet poor plasma by coagulation aon 02-01-2024 aPTT Coag (PPP) [Time] 25.3 s 22.3-36.2 [facility] aPTT Coag (PPP) [Time] Activated partial thromboplastin time (aPTT) in platelet poor plasma by coagulation a 22.3-36.2 [facility] Basophils Auto (Bld) [#/Vol] on 02-01-2024 Basophils (Bld) [#/Vol] 0.1 10 3/uL 0.0-0.1 [facility] Basophils (Bld) [#/Vol] Automated basophil count 0.0-0.1 [facility] Basophils/100 WBC Auto (Bld) on 02-01-2024 Basophils/100 WBC (Bld) 1.2 % 0.2-2.0 [facility] Basophils/100 WBC (Bld) Automated basophil % 0.2-2.0 [facility] Eosinophils/100 WBC Auto (Bl d)on 02-01-2024 Eosinophils/100 WBC (Bld) 2.9 % 0.9-7.0 [facility] Eosinophils/100 WBC (Bld) Automated eosinophil % 0.9-7.0 [facility] Erythrocyte distribution wid th Auto (RBC) [Ratio]on 02-01-2024 Erythrocyte distribution width (RBC) [Ratio] 16.4 % High 11.0-15.0 [facility] Erythrocyte distribution width (RBC) [Ratio] Erythrocyte distribution width [Ratio] by Automated count High 11.0-15.0 [facility] Estimated glomerular filtrat ion rate (GFR) non- Americanon 02-01-2024 GFR/1.73 sq M.predicted among non-blacks MDRD (S/P/Bld) [Vol rate/Area] 34 mL/min/{1.73_m2} Low >=60 [facility] GFR/1.73 sq M.predicted among non-blacks MDRD (S/P/Bld) [Vol rate/Area] Estimated glomerular filtration rate (GFR) non- Low >=60 [facility] Hematocrit Auto (Bld) [Volum e fraction]on 02-01-2024 Hematocrit (Bld) [Volume fraction] 28.7 % Low 42.0-54.0 [facility] Hematocrit (Bld) [Volume fraction] Hematocrit [Volume Fraction] of Blood by Automated count Low 42.0-54.0 [facility] Hemoglobin [Mass/volume] in Bloodon 02-01-2024 Hemoglobin (Bld) [Mass/Vol] 8.7 g/dL Low 14.0-18.0 [facility] Hemoglobin (Bld) [Mass/Vol] Hemoglobin [Mass/volume] in Blood Low 14.0-18.0 [facility] INR in Platelet poor plasma by Coagulation assayon 02-01-2024 INR Coag (PPP) [Relative time] 1.02 {INR} [facility] Comment on above: DESIRED INR:2.0-3.0 CONDITIONS NOT LISTED BELOW2.5-3.5 FOR PROSTHETIC HEART VALVE REPLACEMENT2.5-3.5 RECURRENT THROMBOSIS INR Coag (PPP) [Relative time] INR in Platelet poor plasma by Coagulation assay [facility] Comment on above: DESIRED INR:2.0-3.0 CONDITIONS NOT LISTED BELOW2.5-3.5 FOR PROSTHETIC HEART VALVE REPLACEMENT2.5-3.5 RECURRENT THROMBOSIS Laboratory - Chemistry and C hemistry - challengeon 02-01-2024 Calcium [Mass/Vol] 9.0 mg/dL 8.5-10.[address] [facility] Chloride [Moles/Vol] 100 mmol/L 98-107 [facility] CO2 [Moles/Vol] 26.7 mmol/L 21.0-32.0 [facility] Creatinine [Mass/Vol] 2.03 mg/dL High 0.70-1.30 [facility] GFR/1.73 sq M.predicted MDRD (S/P/Bld) [Vol rate/Area] 41 mL/min/{1.73_m2} Low >=60 [facility] Glucose [Mass/Vol] 268 mg/dL High 74-[address] [facility] Potassium [Moles/Vol] 4.3 mmol/L 3.5-5.1 [facility] Sodium [Moles/Vol] 137 mmol/L 136-[address] [facility] Urea nitrogen [Mass/Vol] 25.0 mg/dL High 7.0-18.0 [facility] Urea nitrogen/Creatinine [Mass ratio] 12.3 mg/mg [facility] Laboratory - Hematology and Cell countson 02-01-2024 Immature granulocytes/100 WBC (Bld) 0.7 % High 0.0-0.5 [facility] Leukocytes [#/volume] correc jorge for nucleated erythrocytes in Blood by Automated counon 02-01-2024 WBC corrected for nucl RBC Auto (Bld) [#/Vol] 8.3 10 3/uL 4.0-11.0 [facility] WBC corrected for nucl RBC Auto (Bld) [#/Vol] Leukocytes [#/volume] corrected for nucleated erythrocytes in Blood by Automated coun 4.0-11.0 [facility] Lymphocytes Auto (Bld) [#/Vo l]on 02-01-2024 Lymphocytes (Bld) [#/Vol] 1.8 10 3/uL 1.2-3.8 [facility] Lymphocytes (Bld) [#/Vol] Lymphocytes [#/volume] in Blood by Automated count 1.2-3.8 [facility] Lymphocytes/100 WBC Auto (Bl d)on 02-01-2024 Lymphocytes/100 WBC (Bld) 21.5 % 20.5-60.0 [facility] Lymphocytes/100 WBC (Bld) Lymphocytes/100 leukocytes in Blood by Automated count 20.5-60.0 [facility] MCH Auto (RBC) [Entitic mass ]on 02-01-2024 MCH (RBC) [Entitic mass] 22.3 pg Low 25.9-34.0 [facility] MCH (RBC) [Entitic mass] MCH [Entitic mass] by Automated count Low 25.9-34.0 [facility] MCHC Auto (RBC) [Mass/Vol]on 02-01-2024 MCHC (RBC) [Mass/Vol] 30.3 g/dL 29.9-35.2 [facility] MCHC (RBC) [Mass/Vol] MCHC [Mass/volume] by Automated count 29.9-35.2 [facility] MCV Auto (RBC) [Entitic vol] on 02-01-2024 MCV (RBC) [Entitic vol] 73.6 fL Low 80.0-94.0 [facility] MCV (RBC) [Entitic vol] MCV [Entitic volume] by Automated count Low 80.0-94.0 [facility] Monocytes Auto (Bld) [#/Vol] on 02-01-2024 Monocytes (Bld) [#/Vol] 0.7 10 3/uL 0.3-0.8 [facility] Monocytes (Bld) [#/Vol] Automated blood monocyte count 0.3-0.8 [facility] Monocytes/100 WBC Auto (Bld) on 02-01-2024 Monocytes/100 WBC (Bld) 8.7 % 1.7-12.0 [facility] Monocytes/100 WBC (Bld) Automated monocyte % 1.7-12.0 [facility] Neutrophils Auto (Bld) [#/Vo l]on 02-01-2024 Neutrophils (Bld) [#/Vol] 5.4 10 3/uL 1.4-6.5 [facility] Neutrophils (Bld) [#/Vol] Neutrophils [#/volume] in Blood by Automated count 1.4-6.5 [facility] Neutrophils/100 WBC Auto (Bl d)on 02-01-2024 Neutrophils/100 WBC (Bld) 65.0 % 43.0-75.0 [facility] Neutrophils/100 WBC (Bld) Automated neutrophil % 43.0-75.0 [facility] No Panel Informationon 01-31 Eosinophils # (Auto) 0.2 10 3/uL 0.0-0.7 [facility] Immature Granulocyte # (Auto) 0.06 10 3/uL High 0.00-0.03 [facility] 12.3 [facility] 25.0 mg/dL High 7.0-18.0 [facility] 0.2 10 3/uL 0.0-0.7 [facility] 9.0 mg/dL 8.5-10.1 [facility] 100 mmol/L 98-107 [facility] 26.7 mmol/L 21.0-32.0 [facility] 2.03 mg/dL High 0.70-1.30 [facility] 0.06 10 3/uL High 0.00-0.03 [facility] 41 Low >=60 [facility] 0.7 % High 0.0-0.5 [facility] 268 mg/dL High 74-106 [facility] 4.3 mmol/L 3.5-5.1 [facility] 137 mmol/L 136-145 [facility] Platelet mean volume Auto (B ld) [Entitic vol]on 02-01-2024 Platelet mean volume (Bld) [Entitic vol] 10.4 fL 9.5-13.5 [facility] Platelet mean volume (Bld) [Entitic vol] Platelet mean volume [Entitic volume] in Blood by Automated count 9.5-13.5 [facility] Platelets Auto (Bld) [#/Vol] on 02-01-2024 Platelets (Bld) [#/Vol] 397 10 3/uL 150-450 [facility] Platelets (Bld) [#/Vol] Platelets [#/volume] in Blood by Automated count 150-450 [facility] Prothrombin time (PT)on 01-04 PT Coag (PPP) [Time] 10.8 s 9.0-11.6 [facility] PT Coag (PPP) [Time] Prothrombin time (PT) 9.0- 11.6 [facility] RBC Auto (Bld) [#/Vol]on RBC (Bld) [#/Vol] 3.90 10 6/uL Low 4.70-6.10 [facility] RBC (Bld) [#/Vol] Erythrocytes [#/volu me] in Blood by Automated count Low 4.70-6.10 [facility] Serum or plasma anion gap de terminationon 02-01-2024 Anion gap [Moles/Vol] 14.6 mmol/L [facility] Anion gap [Moles/Vol] Serum or plasma an ion gap determination [facility] Provider Letteron 01-29-2024 Provider Letter Provider Letter January 29, 2024 MYRA PICKARD [address] [place] [address] [address] [place] [id number] : 1965 Dear Myra, We have been [...] [facility] [address], [place] [address] [facility] Operative Reporton Operative Report Operative Report [...] and then obtained a micro-access upsized to 5-English sheath, placed the catheter in the abdominal [...] well. Mike Montes M.D. ca Dictated: 01/08/2024 [id number] Transcribed: 01/08/2024 [facility] Comment on above: Result Comment: Elec [...] with any questions. Thank you! Marybeth Camarillo [facility] BMPon 01-08-2024 Anion gap [Moles/Vol] 13 mmol/L Normal 6-16 [facility] Comment on above: Performed By: #### 2 [id number] #### [facility] [address] [place] [address] Calcium [Mass/Vol] 9.1 mg/dL Normal 8.9-11.1 [facility] Comment on above: Performed By: #### 2 [id number] #### [facility] [address] [place] [address] Chloride [Moles/Vol] 103 mmol/L Normal 101-111 [facility] Comment on above: Performed By: #### 2 [id number] #### [facility] [address] [place] [address] CO2 [Moles/Vol] 25 mmol/L Normal 21-31 [facility] Comment on above: Performed By: #### 2 [id number] #### [facility] [address] [place] [address] Creatinine [Mass/Vol] 1.9 mg/dL High 0.5-1.3 [facility] Comment on above: Performed By: #### 2 [id number] #### [facility] [address] [place] [address] Glucose [Mass/Vol] 138 mg/dL Normal 55-199 [facility] Comment on above: Performed By: #### 2 [id number] #### [facility] [address] [place] [address] Potassium [Moles/Vol] 4.2 mmol/L Normal 3.5-5.3 [facility] Comment on above: Performed By: #### 2 [id number] #### [facility] [address] [place] [address] Sodium [Moles/Vol] 137 mmol/L Normal 135-145 [facility] Comment on above: Performed By: #### 2 [id number] #### [facility] [address] [place] [address] Urea nitrogen [Mass/Vol] 26 mg/dL High 5-21 [facility] Comment on above: Performed By: #### 2 [id number] #### [facility] [address] [place] [address] Urea nitrogen/Creatinine [Mass ratio] 14 No Units Normal 10-20 [facility] Comment on above: Performed By: #### 2 [id number] #### [facility] [address] [place] [address] CBC w/ Auto Diffon 4 Basophils/100 WBC (Bld) 1.2 % Normal 0.0-2.0 [facility] Comment on above: Performed By: #### 2 [id number] #### [facility] [address] [place] [address] Basophils/Leukocytes Auto (Bld) [Pure # fraction] 0.1 E9/L Normal 0.0-0.2 [facility] Comment on above: Performed By: #### 2 [id number] #### [facility] [address] [place] [address] Eosinophils (Bld) [#/Vol] 0.4 E9/L Normal 0.0-0.5 [facility] Comment on above: Performed By: #### 2 [id number] #### [facility] [address] [place] [address] Eosinophils/100 WBC (Bld) 4.3 % Normal 0.0-8.0 [facility] Comment on above: Performed By: #### 2 [id number] #### [facility] [address] [place] [address] Erythrocyte distribution width (RBC) [Ratio] 17.3 % High 10.9-14.2 [facility] Comment on above: Performed By: #### 2 [id number] #### [facility] [address] [place] [address] Hematocrit (Bld) [Volume fraction] 26.8 % Low 37.7-49.0 [facility] Comment on above: Performed By: #### 2 [id number] #### [facility] [address] [place] [address] Hemoglobin (Bld) [Mass/Vol] 8.8 g/dL Low 13.5-17.5 [facility] Comment on above: Performed By: #### 2 [id number] #### [facility] [address] [place] [address] Hypochromia Auto Ql (Bld) PRESENT Invalid Interpretation Code [facility] Comment on above: Performed By: #### 2 [id number] #### [facility] [address] [place] [address] Lymphocytes (Bld) [#/Vol] 2.3 E9/L Normal 1.0-4.0 [facility] Comment on above: Performed By: #### 2 [id number] #### [facility] [address] [place] [address] Lymphocytes/100 WBC (Bld) 22.6 % Normal 14.0-50.0 [facility] Comment on above: Performed By: #### 2 [id number] #### [facility] [address] [place] [address] MCH (RBC) [Entitic mass] 24.5 pg Low 27.0-34.0 [facility] Comment on above: Performed By: #### 2 [id number] #### [facility] [address] [place] [address] MCHC (RBC) [Mass/Vol] 33.0 g/dL Normal 31.4-36.0 [facility] Comment on above: Performed By: #### 2 [id number] #### [facility] [address] [place] [address] MCV (RBC) [Entitic vol] 74.2 fL Low 80.0-100.0 [facility] Comment on above: Performed By: #### 2 [id number] #### [facility] [address] [place] [address] Microcytes Ql (Bld) PRESENT Invalid Interpretation Code [facility] Comment on above: Performed By: #### 2 [id number] #### [facility] [address] [place] [address] Monocytes (Bld) [#/Vol] 0.9 E9/L Normal 0.2-1.0 [facility] Comment on above: Performed By: #### 2 [id number] #### [facility] [address] [place] [address] Neutrophils (Bld) [#/Vol] 6.6 E9/L Normal 2.0-7.5 [facility] Comment on above: Performed By: #### 2 [id number] #### [facility] [address] [place] [address] Neutrophils/100 WBC (Bld) 63.4 % Normal 36.0-75.0 [facility] Comment on above: Performed By: #### 2 [id number] #### [facility] [address] [place] [address] Platelet 377.0 E9/L Normal 150.0-500. 0 [facility] Comment on above: Performed By: #### 2 [id number] #### [facility] [address] [place] [address] Platelet mean volume (Bld) [Entitic vol] 8.7 fL Normal 6.4-10.8 [facility] Comment on above: Performed By: #### 2 [id number] #### [facility] [address] [place] [address] RBC (Bld) [#/Vol] 3.6 E12/L Low 4.3-5.9 [facility] Comment on above: Performed By: #### 2 [id number] #### [facility] [address] [place] [address] RBC size Nom (Bld) SEE MORPHOLOGY Invalid Interpretation Code [facility] Comment on above: Performed By: #### 2 [id number] #### [facility] [address] [place] [address] WBC corrected for nucl RBC Auto (Bld) [#/Vol] 10.4 E9/L Normal 4.0-11.0 [facility] Comment on above: Performed By: #### 2 [id number] #### [facility] [address] [place] [address] Inpatient Clinical Summaryon 01-08-2024 Inpatient Clinical Summary Inpatient Clinical Summary [address] [id number] Clinical Summary Person Information: Name: MYRA PICKARD SR Age: 58 Years : 1965 Sex: Male PCP: TERESA LYNCH DO Marital Status: Race: White Ethnicity: Non- or Language: Uzbek Visit Id: Visit Reason: I70.261 Speciality: Acuity: Enc Type: Ambulatory/Same Day Surgery Med Service: Surgery Arrival: 01/08/2024 11:49:03 Discharge: Dispo Type: Address: [address] [place] [id number] Provider Notes: Diagnosis: Problems Active Gross hematuria [...] up: With: Address: When: Mike Montes [address] [place], [place] [phone] Business (1) Comments: Call for followup appointment Type Location Start [facility] Office [facility] 02/12/2024 1:15 PM 02/12/2024 1:30 PM Confirmed Patient Education Information: CV - Cardiovascular PCI Discharge Instructions (CUSTOM) Normal [facility] Inpatient Patient Summaryon 01-08-2024 Inpatient Patient Summary Inpatient Patient Summary [address] [address] Patient Discharge Instructions PERSON INFORMATION [...] Follow up: With: Address: When: Mike Wiley [place] [address] Business (1) Comments: Call for followup appointment In the event that this physician does not participate in your insurance network, please consult with your insurance company to find a nearby participating provider. Type Location Start [facility] Office Visit [facility] [place] 02/12/2024 1:15 PM 02/12/2024 1:30 PM Confirmed [...] Capsules By (more content not included)... Normal [facility] Interdisciplinary Note - Ayo singon 01-08-2024 [...] covered with cast padding and KATHERYN. Normal [facility] eGFRon 01-08-2024 eGFR 40 mL/min/1.73 m2 Low >=59 [facility] Comment on above: Order Comment: Order added by Discern Expert. Performed By: #### 1 [id number] #### [facility] [address] [place] [address] Cholesterol in LDL Calc [Mas s/Vol]on 12-31-2023 Cholesterol in LDL [Mass/Vol] 47.0 mg/dL [facility] Comment on above: <100 mg/dl [id number] 0-129 mg/dl NEAR OR ABOVE [id number] mg/dl BORDERLINE [id number] mg/dl HIGH>190 mg/dl VERY HIGH Cholesterol in VLDL Calc [Ma ss/Vol]on 12-31-2023 Cholesterol in VLDL [Mass/Vol] 54.0 mg/dL [facility] Erythrocyte distribution wid th Auto (RBC) [Ratio]on 12-31-2023 Erythrocyte distribution width (RBC) [Ratio] 15.9 % High 11.0-15.0 [facility] Estimated glomerular filtrat ion rate (GFR) non- Americanon 12-31-2023 GFR/1.73 sq M.predicted among non-blacks MDRD (S/P/Bld) [Vol rate/Area] 31 mL/min/{1.73_m2} Low >=60 [facility] Globulin Calc (S) [Mass/Vol] on 12-31-2023 Globulin (S) [Mass/Vol] 3.9 g/dL [facility] Glucose mean value [Mass/vol ume] in Blood Estimated from glycated hemoglobinon 12-31-2023 Average glucose Estimated from glycated hemoglobin (Bld) [Mass/Vol] 163 mg/dL [facility] Hematocrit Auto (Bld) [Volum e fraction]on 12-31-2023 Hematocrit (Bld) [Volume fraction] 25.6 % Low 42.0-54.0 [facility] Hemoglobin [Mass/volume] in Bloodon 12-31-2023 Hemoglobin (Bld) [Mass/Vol] 8.0 g/dL Low 14.0-18.0 [facility] Iron binding capacity [Mass/ volume] in Serum or Plasmaon 12-31-2023 Iron binding capacity [Mass/Vol] 286.0 ug/dL 250.0-450. 0 [facility] Iron saturation [Mass Fracti on] in Serum or Plasmaon 12-31-2023 Iron saturation [Mass fraction] 2.8 % [facility] - Chemistry and C hemistry - challengeon 12-31-2023 Cobalamin (Vitamin B12) [Mass/Vol] 156.0 pg/mL Low 193.0-986. 0 [facility] Ferritin [Mass/Vol] 16.0 ng/mL Low 26.0-388.0 [facility] Iron [Mass/Vol] 8.0 ug/dL Low 65.0-175.0 [facility] Transferrin [Mass/Vol] 241 mg/dL 177-329 [facility] Comment on above: Performed at: - [address] [id number] Director: Uriel Borrero PhD, Phone: [phone] Albumin [Mass/Vol] 2.4 g/dL Low 3.4-5.[address] [facility] ALP [Catalytic activity/Vol] 172 U/L High 46-116 [facility] ALT [Catalytic activity/Vol] 21 U/L 16-63 [facility] AST [Catalytic activity/Vol] 8 U/L Low 15-37 [facility] Bilirubin [Mass/Vol] 0.2 mg/dL 0.2-1.0 [facility] Calcium [Mass/Vol] 8.4 mg/dL Low 8.5-10.[address] [facility] Chloride [Moles/Vol] 98 mmol/L 98-107 [facility] Cholesterol [Mass/Vol] 127 mg/dL <=200 [facility] Cholesterol in HDL [Mass/Vol] 26 mg/dL Low 40-60 [facility] Comment on above: > or =60 mg/dl - LOW CARDIOVASCULAR RISK<40 mg/dl - HIGH CARDIOVASCULAR RISK CO2 [Moles/Vol] 30.5 mmol/L 21.0-32.0 [facility] Creatinine [Mass/Vol] 2.22 mg/dL High 0.70-1.30 [facility] GFR/1.73 sq M.predicted MDRD (S/P/Bld) [Vol rate/Area] 37 mL/min/{1.73_m2} Low >=60 [facility] Glucose [Mass/Vol] 348 mg/dL High 74-[address] [facility] Potassium [Moles/Vol] 3.9 mmol/L 3.5-5.1 [facility] Protein [Mass/Vol] 6.3 g/dL Low 6.4-8.[address] [facility] Sodium [Moles/Vol] 137 mmol/L 136-[address] [facility] Triglyceride [Mass/Vol] 270 mg/dL High <=150 [facility] TSH Qn 3.218 m[IU]/L 0.358-3.74 0 [facility] Urea nitrogen [Mass/Vol] 21.0 mg/dL High 7.0-18.0 [facility] Urea nitrogen/Creatinine [Mass ratio] 9.5 mg/mg [facility] Laboratory - Hematology and Cell countson 12-31-2023 HbA1c (Bld) [Mass fraction] 7.3 % High 4.5-6.2 [facility] Comment on above: ADA RECOMMENDED LIMI T 4.0 - 6.0ADA THERAPEUTIC TARGET < 7.0ACTION SUGGESTED> 7.0 Leukocytes [#/volume] correc jorge for nucleated erythrocytes in Blood by Automated counon 12-31-2023 WBC corrected for nucl RBC Auto (Bld) [#/Vol] 8.1 10 3/uL 4.0-11.0 [facility] MCH Auto (RBC) [Entitic mass ]on 12-31-2023 MCH (RBC) [Entitic mass] 24.3 pg Low 25.9-34.0 [facility] MCHC Auto (RBC) [Mass/Vol]on 12-31-2023 MCHC (RBC) [Mass/Vol] 31.3 g/dL 29.9-35.2 [facility] MCV Auto (RBC) [Entitic vol] on 12-31-2023 MCV (RBC) [Entitic vol] 77.8 fL Low 80.0-94.0 [facility] No Panel Informationon 12-30 Folate 5.6 ng/mL >3.0 [facility] Comment on above: A serum folate vivian ntration of less than 3.1 ng/mL isconsidered to represent clinical deficiency.Performed at: [employer] [id number] Director: Uriel Borrero PhD, Phone: [phone] 5.6 ng/mL >3.0 [facility] 241 mg/dL 177-329 [facility] 156.0 pg/mL Low 193.0-986. 0 [facility] 16.0 ng/mL Low 26.0-388.0 [facility] 8.0 ug/dL Low 65.0-175.0 [facility] Troponin I High Sensitivity 5.8 pg/mL 4.0-76.1 [facility] Comment on above: CUT-OFF POINTS HAVE BEEN [...] DIAGNOSTIC AND CLINICAL INFORMATION. 5.8 pg/mL 4.0-76.1 [facility] 3.218 u[iU]/mL 0.358-3.74 0 [facility] 7.3 % High 4.5-6.2 [facility] 127 mg/dL <=200 [facility] 26 mg/dL Low 40-60 [facility] 2.4 g/dL Low 3.4-5.0 [facility] 172 U/L High 46-116 [facility] 270 mg/dL High <=150 [facility] 21 U/L 16-63 [facility] 8 U/L Low 15-37 [facility] 9.5 [facility] 21.0 mg/dL High 7.0-18.0 [facility] 8.4 mg/dL Low 8.5-10.1 [facility] 98 mmol/L 98-107 [facility] 30.5 mmol/L 21.0-32.0 [facility] 2.22 mg/dL High 0.70-1.30 [facility] 37 Low >=60 [facility] 348 mg/dL High 74-106 [facility] 3.9 mmol/L 3.5-5.1 [facility] 137 mmol/L 136-145 [facility] 0.2 mg/dL 0.2-1.0 [facility] 6.3 g/dL Low 6.4-8.2 [facility] Platelet mean volume Auto (B ld) [Entitic vol]on 12-31-2023 Platelet mean volume (Bld) [Entitic vol] 10.4 fL 9.5-13.5 [facility] Platelets Auto (Bld) [#/Vol] on 12-31-2023 Platelets (Bld) [#/Vol] 297 10 3/uL 150-450 [facility] RBC Auto (Bld) [#/Vol]on RBC (Bld) [#/Vol] 3.29 10 6/uL Low 4.70-6.10 [facility] Serum or plasma albumin/glob ulin mass ratioon 12-31-2023 Albumin/Globulin [Mass ratio] 0.6 {ratio} [facility] Serum or plasma anion gap de terminationon 12-31-2023 Anion gap [Moles/Vol] 12.4 mmol/L [facility] Serum or plasma total choles terol/high density lipoprotein (HDL) cholesterol mass stone 12-31-2023 Cholesterol.total/Chol esterol in HDL [Mass ratio] 4.9 {ratio} [facility] Comment on above: 3.3 - 4.4 LOW RISK4. 4 - 7.1 AVERAGE RISK7.1 - 11.0 MODERATE RISK>11.0 HIGH RISK Basophils Auto (Bld) [#/Vol] on 12-30-2023 Basophils (Bld) [#/Vol] 0.1 10 3/uL 0.0-0.1 [facility] Basophils/100 WBC Auto (Bld) on 12-30-2023 Basophils/100 WBC (Bld) 0.7 % 0.2-2.0 [facility] Eosinophils/100 WBC Auto (Bl d)on 12-30-2023 Eosinophils/100 WBC (Bld) 2.3 % 0.9-7.0 [facility] Erythrocyte distribution wid th Auto (RBC) [Ratio]on 12-30-2023 Erythrocyte distribution width (RBC) [Ratio] 15.9 % High 11.0-15.0 [facility] Estimated glomerular filtrat ion rate (GFR) non- Americanon 12-30-2023 GFR/1.73 sq M.predicted among non-blacks MDRD (S/P/Bld) [Vol rate/Area] 30 mL/min/{1.73_m2} Low >=60 [facility] Hematocrit Auto (Bld) [Volum e fraction]on 12-30-2023 Hematocrit (Bld) [Volume fraction] 27.1 % Low 42.0-54.0 [facility] Hemoglobin [Mass/volume] in Bloodon 12-30-2023 Hemoglobin (Bld) [Mass/Vol] 8.5 g/dL Low 14.0-18.0 [facility] Laboratory - Chemistry and C hemistry - challengeon 12-30-2023 Calcium [Mass/Vol] 9.2 mg/dL 8.5-10.[address] [facility] Chloride [Moles/Vol] 95 mmol/L Low 98-107 [facility] CO2 [Moles/Vol] 27.2 mmol/L 21.0-32.0 [facility] Creatinine [Mass/Vol] 2.23 mg/dL High 0.70-1.30 [facility] GFR/1.73 sq M.predicted MDRD (S/P/Bld) [Vol rate/Area] 37 mL/min/{1.73_m2} Low >=60 [facility] Glucose [Mass/Vol] 193 mg/dL High 74-[address] [facility] Potassium [Moles/Vol] 3.6 mmol/L 3.5-5.1 [facility] Sodium [Moles/Vol] 132 mmol/L Low 136-[address] [facility] Urea nitrogen [Mass/Vol] 22.0 mg/dL High 7.0-18.0 [facility] Urea nitrogen/Creatinine [Mass ratio] 9.9 mg/mg [facility] - Hematology and Cell countson 12-30-2023 Immature granulocytes/100 WBC (Bld) 0.7 % High 0.0-0.5 [facility] Leukocytes [#/volume] correc jorge for nucleated erythrocytes in Blood by Automated counon 12-30-2023 WBC corrected for nucl RBC Auto (Bld) [#/Vol] 10.7 10 3/uL 4.0-11.0 [facility] Lymphocytes Auto (Bld) [#/Vo l]on 12-30-2023 Lymphocytes (Bld) [#/Vol] 2.3 10 3/uL 1.2-3.8 [facility] Lymphocytes/100 WBC Auto (Bl d)on 12-30-2023 Lymphocytes/100 WBC (Bld) 21.5 % 20.5-60.0 [facility] MCH Auto (RBC) [Entitic mass ]on 12-30-2023 MCH (RBC) [Entitic mass] 24.4 pg Low 25.9-34.0 [facility] MCHC Auto (RBC) [Mass/Vol]on 12-30-2023 MCHC (RBC) [Mass/Vol] 31.4 g/dL 29.9-35.2 [facility] MCV Auto (RBC) [Entitic vol] on 12-30-2023 MCV (RBC) [Entitic vol] 77.7 fL Low 80.0-94.0 [facility] Monocytes Auto (Bld) [#/Vol] on 12-30-2023 Monocytes (Bld) [#/Vol] 0.9 10 3/uL High 0.3-0.8 [facility] Monocytes/100 WBC Auto (Bld) on 12-30-2023 Monocytes/100 WBC (Bld) 8.4 % 1.7-12.0 [facility] Neutrophils Auto (Bld) [#/Vo l]on 12-30-2023 Neutrophils (Bld) [#/Vol] 7.1 10 3/uL High 1.4-6.5 [facility] Neutrophils/100 WBC Auto (Bl d)on 12-30-2023 Neutrophils/100 WBC (Bld) 66.4 % 43.0-75.0 [facility] No Panel Informationon 12-29 Troponin I High Sensitivity 5.7 pg/mL 4.0-76.1 [facility] Comment on above: CUT-OFF POINTS HAVE BEEN [...] DIAGNOSTIC AND CLINICAL INFORMATION. 5.7 pg/mL 4.0-76.1 [facility] Eosinophils # (Auto) 0.3 10 3/uL 0.0-0.7 [facility] Immature Granulocyte # (Auto) 0.07 10 3/uL High 0.00-0.03 [facility] 9.9 [facility] 22.0 mg/dL High 7.0-18.0 [facility] 0.3 10 3/uL 0.0-0.7 [facility] 9.2 mg/dL 8.5-10.1 [facility] 95 mmol/L Low 98-107 [facility] 27.2 mmol/L 21.0-32.0 [facility] 2.23 mg/dL High 0.70-1.30 [facility] 0.07 10 3/uL High 0.00-0.03 [facility] 37 Low >=60 [facility] 0.7 % High 0.0-0.5 [facility] 193 mg/dL High 74-106 [facility] 3.6 mmol/L 3.5-5.1 [facility] 132 mmol/L Low 136-145 [facility] Platelet mean volume Auto (B ld) [Entitic vol]on 12-30-2023 Platelet mean volume (Bld) [Entitic vol] 10.4 fL 9.5-13.5 [facility] Platelets Auto (Bld) [#/Vol] on 12-30-2023 Platelets (Bld) [#/Vol] 368 10 3/uL 150-450 [facility] RBC Auto (Bld) [#/Vol]on RBC (Bld) [#/Vol] 3.49 10 6/uL Low 4.70-6.10 [facility] Serum or plasma anion gap de terminationon 12-30-2023 Anion gap [Moles/Vol] 13.4 mmol/L [facility] Basophils Auto (Bld) [#/Vol] on 12-23-2023 Basophils (Bld) [#/Vol] 0.1 10 3/uL 0.0-0.1 [facility] Basophils/100 WBC Auto (Bld) on 12-23-2023 Basophils/100 WBC (Bld) 0.4 % 0.2-2.0 [facility] Eosinophils/100 WBC Auto (Bl d)on 12-23-2023 Eosinophils/100 WBC (Bld) 1.0 % 0.9-7.0 [facility] Erythrocyte distribution wid th Auto (RBC) [Ratio]on 12-23-2023 Erythrocyte distribution width (RBC) [Ratio] 16.4 % High 11.0-15.0 [facility] Estimated glomerular filtrat ion rate (GFR) non- Americanon 12-23-2023 GFR/1.73 sq M.predicted among non-blacks MDRD (S/P/Bld) [Vol rate/Area] 37 mL/min/{1.73_m2} Low >=60 [facility] Globulin Calc (S) [Mass/Vol] on 12-23-2023 Globulin (S) [Mass/Vol] 3.3 g/dL [facility] Hematocrit Auto (Bld) [Volum e fraction]on 12-23-2023 Hematocrit (Bld) [Volume fraction] 23.6 % Low 42.0-54.0 [facility] Comment on above: RESULTS CALLED TO MARYSE BOUDREAUX RN Hemoglobin [Mass/volume] in Bloodon 12-23-2023 Hemoglobin (Bld) [Mass/Vol] 7.1 g/dL Low 14.0-18.0 [facility] Laboratory - Chemistry and C hemistry - challengeon 12-23-2023 Albumin [Mass/Vol] 2.2 g/dL Low 3.4-5.[address] [facility] ALP [Catalytic activity/Vol] 127 U/L High 46-116 [facility] ALT [Catalytic activity/Vol] 13 U/L Low 16-63 [facility] AST [Catalytic activity/Vol] 10 U/L Low 15-37 [facility] Bilirubin [Mass/Vol] 0.2 mg/dL 0.2-1.0 [facility] Calcium [Mass/Vol] 7.4 mg/dL Low 8.5-10.[address] [facility] Chloride [Moles/Vol] 103 mmol/L 98-107 [facility] CO2 [Moles/Vol] 23.4 mmol/L 21.0-32.0 [facility] Creatinine [Mass/Vol] 1.88 mg/dL High 0.70-1.30 [facility] GFR/1.73 sq M.predicted MDRD (S/P/Bld) [Vol rate/Area] 45 mL/min/{1.73_m2} Low >=60 [facility] Glucose [Mass/Vol] 357 mg/dL High 74-[address] [facility] Magnesium [Mass/Vol] 1.5 mg/dL Low 1.8-2.4 [facility] Potassium [Moles/Vol] 4.4 mmol/L 3.5-5.1 [facility] Protein [Mass/Vol] 5.5 g/dL Low 6.4-8.[address] [facility] Sodium [Moles/Vol] 136 mmol/L 136-[address] [facility] Urea nitrogen [Mass/Vol] 30.0 mg/dL High 7.0-18.0 [facility] Urea nitrogen/Creatinine [Mass ratio] 16.0 mg/mg [facility] Laboratory - Hematology and Cell countson 12-23-2023 Immature granulocytes/100 WBC (Bld) 0.9 % High 0.0-0.5 [facility] Leukocytes [#/volume] correc jorge for nucleated erythrocytes in Blood by Automated counon 12-23-2023 WBC corrected for nucl RBC Auto (Bld) [#/Vol] 13.3 10 3/uL High 4.0-11.0 [facility] Lymphocytes Auto (Bld) [#/Vo l]on 12-23-2023 Lymphocytes (Bld) [#/Vol] 2.1 10 3/uL 1.2-3.8 [facility] Lymphocytes/100 WBC Auto (Bl d)on 12-23-2023 Lymphocytes/100 WBC (Bld) 15.7 % Low 20.5-60.0 [facility] MCH Auto (RBC) [Entitic mass ]on 12-23-2023 MCH (RBC) [Entitic mass] 25.0 pg Low 25.9-34.0 [facility] MCHC Auto (RBC) [Mass/Vol]on 12-23-2023 MCHC (RBC) [Mass/Vol] 30.1 g/dL 29.9-35.2 [facility] MCV Auto (RBC) [Entitic vol] on 12-23-2023 MCV (RBC) [Entitic vol] 83.1 fL 80.0-94.0 [facility] Monocytes Auto (Bld) [#/Vol] on 12-23-2023 Monocytes (Bld) [#/Vol] 0.6 10 3/uL 0.3-0.8 [facility] Monocytes/100 WBC Auto (Bld) on 12-23-2023 Monocytes/100 WBC (Bld) 4.7 % 1.7-12.0 [facility] Neutrophils Auto (Bld) [#/Vo l]on 12-23-2023 Neutrophils (Bld) [#/Vol] 10.3 10 3/uL High 1.4-6.5 [facility] Neutrophils/100 WBC Auto (Bl d)on 12-23-2023 Neutrophils/100 WBC (Bld) 77.3 % High 43.0-75.0 [facility] No Panel Informationon 12-22 Eosinophils # (Auto) 0.1 10 3/uL 0.0-0.7 [facility] Immature Granulocyte # (Auto) 0.12 10 3/uL High 0.00-0.03 [facility] 1.5 mg/dL Low 1.8-2.4 [facility] 2.2 g/dL Low 3.4-5.0 [facility] 0.1 10 3/uL 0.0-0.7 [facility] [facility] 127 U/L High 46-116 [facility] 13 U/L Low 16-63 [facility] 10 U/L Low 15-37 [facility] 16.0 [facility] 0.12 10 3/uL High 0.00-0.03 [facility] 30.0 mg/dL High 7.0-18.0 [facility] 0.9 % High 0.0-0.5 [facility] 7.4 mg/dL Low 8.5-10.1 [facility] 103 mmol/L 98-107 [facility] 23.4 mmol/L 21.0-32.0 [facility] 1.88 mg/dL High 0.70-1.30 [facility] 45 Low >=60 [facility] 357 mg/dL High 74-106 [facility] 4.4 mmol/L 3.5-5.1 [facility] 136 mmol/L 136-145 [facility] 0.2 mg/dL 0.2-1.0 [facility] 5.5 g/dL Low 6.4-8.2 [facility] Platelet mean volume Auto (B ld) [Entitic vol]on 12-23-2023 Platelet mean volume (Bld) [Entitic vol] 10.3 fL 9.5-13.5 [facility] Platelets Auto (Bld) [#/Vol] on 12-23-2023 Platelets (Bld) [#/Vol] 373 10 3/uL 150-450 [facility] RBC Auto (Bld) [#/Vol]on RBC (Bld) [#/Vol] 2.84 10 6/uL Low 4.70-6.10 [facility] Serum or plasma albumin/glob ulin mass ratioon 12-23-2023 Albumin/Globulin [Mass ratio] 0.7 {ratio} [facility] Serum or plasma anion gap de terminationon 12-23-2023 Anion gap [Moles/Vol] 14.0 [facility] Basophils Auto (Bld) [#/Vol] on 12-22-2023 Basophils (Bld) [#/Vol] 0.0 10 3/uL 0.0-0.1 [facility] Basophils/100 WBC Auto (Bld) on 12-22-2023 Basophils/100 WBC (Bld) 0.2 % 0.2-2.0 [facility] Eosinophils/100 WBC Auto (Bl d)on 12-22-2023 Eosinophils/100 WBC (Bld) 0.1 % Low 0.9-7.0 [facility] Erythrocyte distribution wid th Auto (RBC) [Ratio]on 12-22-2023 Erythrocyte distribution width (RBC) [Ratio] 16.5 % High 11.0-15.0 [facility] Estimated glomerular filtrat ion rate (GFR) non- Americanon 12-22-2023 GFR/1.73 sq M.predicted among non-blacks MDRD (S/P/Bld) [Vol rate/Area] 23 mL/min/{1.73_m2} Low >=60 [facility] Globulin Calc (S) [Mass/Vol] on 12-22-2023 Globulin (S) [Mass/Vol] 3.8 g/dL [facility] Hematocrit Auto (Bld) [Volum e fraction]on 12-22-2023 Hematocrit (Bld) [Volume fraction] 25.4 % Low 42.0-54.0 [facility] Hemoglobin [Mass/volume] in Bloodon 12-22-2023 Hemoglobin (Bld) [Mass/Vol] 7.6 g/dL Low 14.0-18.0 [facility] Laboratory - Chemistry and C hemistry - challengeon 12-22-2023 Bilirubin Ql (U) Negative NEGATIVE [facility] Glucose (U) [Mass/Vol] mg/dL Abnormal NEGATIVE [facility] Ketones Ql (U) Negative NEGATIVE [facility] pH (U) 6.5 [pH] 5.0-9.0 [facility] Specific gravity (U) [Rel density] <=1.005 Abnormal 1.005-1.02 5 [facility] Urobilinogen Qn (U) 0.2 {Brendan'U}/dL 0.2-1.0 [facility] Calcium [Mass/Vol] 7.2 mg/dL Low 8.5-10.[address] [facility] Chloride [Moles/Vol] 95 mmol/L Low 98-107 [facility] CO2 [Moles/Vol] 21.7 mmol/L 21.0-32.0 [facility] Creatinine [Mass/Vol] 2.80 mg/dL High 0.70-1.30 [facility] GFR/1.73 sq M.predicted MDRD (S/P/Bld) [Vol rate/Area] 28 mL/min/{1.73_m2} Low >=60 [facility] Glucose [Mass/Vol] 683 mg/dL High 74-[address] [facility] Comment on above: RESULTS CALLED TO Me Faraz Pickard RN Potassium [Moles/Vol] 4.8 mmol/L 3.5-5.1 [facility] Sodium [Moles/Vol] 129 mmol/L Low 136-[address] [facility] Urea nitrogen [Mass/Vol] 27.0 mg/dL High 7.0-18.0 [facility] Urea nitrogen/Creatinine [Mass ratio] 9.6 mg/mg [facility] Albumin [Mass/Vol] 2.3 g/dL Low 3.4-5.[address] [facility] ALP [Catalytic activity/Vol] 143 U/L High 46-116 [facility] ALT [Catalytic activity/Vol] 15 U/L Low 16-63 [facility] AST [Catalytic activity/Vol] 9 U/L Low 15-37 [facility] Bilirubin [Mass/Vol] 0.2 mg/dL 0.2-1.0 [facility] Magnesium [Mass/Vol] 0.9 mg/dL Low 1.8-2.4 [facility] Comment on above: RESULTS CALLED TO FATIMAH SANTIAGO RN Natriuretic peptide B (Bld) [Mass/Vol] 322.0 pg/mL <=900.0 [facility] Protein [Mass/Vol] 6.1 g/dL Low 6.4-8.[address] [facility] Laboratory - Hematology and Cell countson 12-22-2023 Immature granulocytes/100 WBC (Bld) 0.9 % High 0.0-0.5 [facility] Laboratory - Specimen inform ationon 12-22-2023 Appearance (U) CLEAR CLEAR [facility] Color (U) LT. YELLOW YELLOW [facility] Laboratory - Urinalysison Leukocyte esterase Test strip Ql (U) Negative NEGATIVE [facility] Mucus Ql (Urine sed) NONE SEEN NONE SEEN [facility] Nitrite Ql (U) Negative NEGATIVE [facility] Protein Ql (U) Negative NEG/TRACE [facility] Leukocytes [#/volume] correc jorge for nucleated erythrocytes in Blood by Automated counon 12-22-2023 WBC corrected for nucl RBC Auto (Bld) [#/Vol] 11.7 10 3/uL High 4.0-11.0 [facility] Lymphocytes Auto (Bld) [#/Vo l]on 12-22-2023 Lymphocytes (Bld) [#/Vol] 0.9 10 3/uL Low 1.2-3.8 [facility] Lymphocytes/100 WBC Auto (Bl d)on 12-22-2023 Lymphocytes/100 WBC (Bld) 7.6 % Low 20.5-60.0 [facility] MCH Auto (RBC) [Entitic mass ]on 12-22-2023 MCH (RBC) [Entitic mass] 24.4 pg Low 25.9-34.0 [facility] MCHC Auto (RBC) [Mass/Vol]on 12-22-2023 MCHC (RBC) [Mass/Vol] 29.9 g/dL 29.9-35.2 [facility] MCV Auto (RBC) [Entitic vol] on 12-22-2023 MCV (RBC) [Entitic vol] 81.7 fL 80.0-94.0 [facility] Monocytes Auto (Bld) [#/Vol] on 12-22-2023 Monocytes (Bld) [#/Vol] 0.2 10 3/uL Low 0.3-0.8 [facility] Monocytes/100 WBC Auto (Bld) on 12-22-2023 Monocytes/100 WBC (Bld) 1.4 % Low 1.7-12.0 [facility] Neutrophils Auto (Bld) [#/Vo l]on 12-22-2023 Neutrophils (Bld) [#/Vol] 10.5 10 3/uL High 1.4-6.5 [facility] Neutrophils/100 WBC Auto (Bl d)on 12-22-2023 Neutrophils/100 WBC (Bld) 89.8 % High 43.0-75.0 [facility] No Panel Informationon 12-21 Urine Bacteria NONE SEEN #/HPF NONE SEEN [facility] Urine Occult Blood Negative NEGATIVE [facility] Urine Other Casts NONE SEEN #/LPF NONE [facility]EN [facility] Urine Other Crystals None Seen #/HPF None Seen [facility] Urine RBC 0-2 #/HPF 0-2 [facility] Urine Squamous Epithelial Cells NONE SEEN #/LPF NONE/RARE [facility] Urine WBC 0-2 #/HPF Abnormal NONE SEEN [facility] NONE SEEN #/LPF NONE/RARE [facility] None Seen #/HPF NONE SEEN [facility] Negative NEG/TRACE [facility] CLEAR CLEAR [facility] LT. YELLOW YELLOW [facility] >=1000 mg/dL Abnormal NEGATIVE [facility] NONE SEEN NONE SEEN [facility] 6.5 5.0-9.0 [facility] 0-2 #/HPF Abnormal NONE SEEN [facility] <=1.005 Abnormal 1.005-1.02 5 [facility] 0.2 EU/dL 0.2-1.0 [facility] 9.6 [facility] 27.0 mg/dL High 7.0-18.0 [facility] 7.2 mg/dL Low 8.5-10.1 [facility] 95 mmol/L Low 98-107 [facility] 21.7 mmol/L 21.0-32.0 [facility] 2.80 mg/dL High 0.70-1.30 [facility] 28 Low >=60 [facility] 683 mg/dL High 74-106 [facility] 4.8 mmol/L 3.5-5.1 [facility] 129 mmol/L Low 136-145 [facility] Eosinophils # (Auto) 0.0 10 3/uL 0.0-0.7 [facility] Immature Granulocyte # (Auto) 0.11 10 3/uL High 0.00-0.03 [facility] Phosphorus Level 2.7 mg/dL 2.6-4.7 [facility] 322.0 pg/mL <=900.0 [facility] 0.9 mg/dL Low 1.8-2.4 [facility] 2.7 mg/dL 2.6-4.7 [facility] 0.0 10 3/uL 0.0-0.7 [facility] 2.3 g/dL Low 3.4-5.0 [facility] 143 U/L High 46-116 [facility] 15 U/L Low 16-63 [facility] 9 U/L Low 15-37 [facility] 0.11 10 3/uL High 0.00-0.03 [facility] 0.9 % High 0.0-0.5 [facility] 0.2 mg/dL 0.2-1.0 [facility] 6.1 g/dL Low 6.4-8.2 [facility] Platelet mean volume Auto (B ld) [Entitic vol]on 12-22-2023 Platelet mean volume (Bld) [Entitic vol] 10.5 fL 9.5-13.5 [facility] Platelets Auto (Bld) [#/Vol] on 12-22-2023 Platelets (Bld) [#/Vol] 400 10 3/uL 150-450 [facility] RBC Auto (Bld) [#/Vol]on RBC (Bld) [#/Vol] 3.11 10 6/uL Low 4.70-6.10 [facility] Serum or plasma albumin/glob ulin mass ratioon 12-22-2023 Albumin/Globulin [Mass ratio] 0.6 {ratio} [facility] Serum or plasma anion gap de terminationon 12-22-2023 Anion gap [Moles/Vol] 17.1 mmol/L Fi [facility] Activated partial thrombopla stin time (aPTT) in platelet poor plasma by coagulation aon 12-21-2023 aPTT Coag (PPP) [Time] 26.6 s 22.3-36.2 [facility] Basophils Auto (Bld) [#/Vol] on 12-21-2023 Basophils (Bld) [#/Vol] 0.1 10 3/uL 0.0-0.1 [facility] Basophils/100 WBC Auto (Bld) on 12-21-2023 Basophils/100 WBC (Bld) 0.8 % 0.2-2.0 [facility] Eosinophils/100 WBC Auto (Bl d)on 12-21-2023 Eosinophils/100 WBC (Bld) 4.2 % 0.9-7.0 [facility] Erythrocyte distribution wid th Auto (RBC) [Ratio]on 12-21-2023 Erythrocyte distribution width (RBC) [Ratio] 16.6 % High 11.0-15.0 [facility] Estimated glomerular filtrat ion rate (GFR) non- Americanon 12-21-2023 GFR/1.73 sq M.predicted among non-blacks MDRD (S/P/Bld) [Vol rate/Area] 23 mL/min/{1.73_m2} Low >=60 [facility] Globulin Calc (S) [Mass/Vol] on 12-21-2023 Globulin (S) [Mass/Vol] 4.0 g/dL [facility] Hematocrit Auto (Bld) [Volum e fraction]on 12-21-2023 Hematocrit (Bld) [Volume fraction] 28.2 % Low 42.0-54.0 [facility] Hemoglobin [Mass/volume] in Bloodon 12-21-2023 Hemoglobin (Bld) [Mass/Vol] 8.6 g/dL Low 14.0-18.0 [facility] INR in Platelet poor plasma by Coagulation assayon 12-21-2023 INR Coag (PPP) [Relative time] 1.05 {INR} [facility] Comment on above: DESIRED INR:2.0-3.0 CONDITIONS NOT LISTED BELOW2.5-3.5 FOR PROSTHETIC HEART VALVE REPLACEMENT2.5-3.5 [facility] THROMBOSIS Laboratory - Chemistry and C hemistry - challengeon 12-21-2023 Albumin [Mass/Vol] 2.8 g/dL Low 3.4-5.[address] [facility] ALP [Catalytic activity/Vol] 132 U/L High 46-116 [facility] ALT [Catalytic activity/Vol] 13 U/L Low 16-63 [facility] AST [Catalytic activity/Vol] 10 U/L Low 15-37 [facility] Bilirubin [Mass/Vol] 0.3 mg/dL 0.2-1.0 [facility] Calcium [Mass/Vol] 7.8 mg/dL Low 8.5-10.[address] [facility] Chloride [Moles/Vol] 99 mmol/L 98-107 [facility] CO2 [Moles/Vol] 29.9 mmol/L 21.0-32.0 [facility] Creatinine [Mass/Vol] 2.79 mg/dL High 0.70-1.30 [facility] GFR/1.73 sq M.predicted MDRD (S/P/Bld) [Vol rate/Area] 29 mL/min/{1.73_m2} Low >=60 [facility] Glucose [Mass/Vol] 56 mg/dL Low 74-[address] [facility] Lactate [Moles/Vol] 1.6 mmol/L 0.4-2.0 [facility] Natriuretic peptide B (Bld) [Mass/Vol] 222.0 pg/mL <=900.0 [facility] Potassium [Moles/Vol] 3.3 mmol/L Low 3.5-5.1 [facility] Protein [Mass/Vol] 6.8 g/dL 6.4-8.[address] [facility] Sodium [Moles/Vol] 138 mmol/L 136-[address] [facility] Urea nitrogen [Mass/Vol] 29.0 mg/dL High 7.0-18.0 [facility] Urea nitrogen/Creatinine [Mass ratio] 10.4 mg/mg [facility] Laboratory - Hematology and Cell countson 12-21-2023 Immature granulocytes/100 WBC (Bld) 1.0 % High 0.0-0.5 [facility] Leukocytes [#/volume] correc jorge for nucleated erythrocytes in Blood by Automated counon 12-21-2023 WBC corrected for nucl RBC Auto (Bld) [#/Vol] 12.6 10 3/uL High 4.0-11.0 [facility] Lymphocytes Auto (Bld) [#/Vo l]on 12-21-2023 Lymphocytes (Bld) [#/Vol] 3.4 10 3/uL 1.2-3.8 [facility] Lymphocytes/100 WBC Auto (Bl d)on 12-21-2023 Lymphocytes/100 WBC (Bld) 26.6 % 20.5-60.0 [facility] MCH Auto (RBC) [Entitic mass ]on 12-21-2023 MCH (RBC) [Entitic mass] 24.7 pg Low 25.9-34.0 [facility] MCHC Auto (RBC) [Mass/Vol]on 12-21-2023 MCHC (RBC) [Mass/Vol] 30.5 g/dL 29.9-35.2 [facility] MCV Auto (RBC) [Entitic vol] on 12-21-2023 MCV (RBC) [Entitic vol] 81.0 fL 80.0-94.0 [facility] Monocytes Auto (Bld) [#/Vol] on 12-21-2023 Monocytes (Bld) [#/Vol] 0.6 10 3/uL 0.3-0.8 [facility] Monocytes/100 WBC Auto (Bld) on 12-21-2023 Monocytes/100 WBC (Bld) 4.9 % 1.7-12.0 [facility] Neutrophils Auto (Bld) [#/Vo l]on 12-21-2023 Neutrophils (Bld) [#/Vol] 7.9 10 3/uL High 1.4-6.5 [facility] Neutrophils/100 WBC Auto (Bl d)on 12-21-2023 Neutrophils/100 WBC (Bld) 62.5 % 43.0-75.0 [facility] No Panel Informationon 12-20 Troponin I High Sensitivity 5.1 pg/mL 4.0-76.1 [facility] Comment on above: CUT-OFF POINTS HAVE BEEN [...] DIAGNOSTIC AND CLINICAL INFORMATION. 5.1 pg/mL 4.0-76.1 [facility] Eosinophils # (Auto) 0.5 10 3/uL 0.0-0.7 [facility] Immature Granulocyte # (Auto) 0.13 10 3/uL High 0.00-0.03 [facility] Venous Blood Partial Pressure CO2 39.8 mm[Hg] Low 40.0-52.0 [facility] Venous Blood pH 7.448 High 7.330-7.43 0 [facility] 222.0 pg/mL <=900.0 [facility] 1.6 mmol/L 0.4-2.0 [facility] 39.8 mm[Hg] Low 40.0-52.0 [facility] 7.448 High 7.330-7.43 0 [facility] 2.8 g/dL Low 3.4-5.0 [facility] 0.5 10 3/uL 0.0-0.7 [facility] 132 U/L High 46-116 [facility] 13 U/L Low 16-63 [facility] 10 U/L Low 15-37 [facility] 10.4 [facility] 0.13 10 3/uL High 0.00-0.03 [facility] 29.0 mg/dL High 7.0-18.0 [facility] 1.0 % High 0.0-0.5 [facility] 7.8 mg/dL Low 8.5-10.1 [facility] 99 mmol/L 98-107 [facility] 29.9 mmol/L 21.0-32.0 [facility] 2.79 mg/dL High 0.70-1.30 [facility] 29 Low >=60 [facility] 56 mg/dL Low 74-106 [facility] 3.3 mmol/L Low 3.5-5.1 [facility] 138 mmol/L 136-145 [facility] 0.3 mg/dL 0.2-1.0 [facility] 6.8 g/dL 6.4-8.2 [facility] No Panel InformationOrdered By: Марина Flores on 12-21-2023 Blood Culture 2 [facility] Blood Culture 1 [facility] Platelet mean volume Auto (B ld) [Entitic vol]on 12-21-2023 Platelet mean volume (Bld) [Entitic vol] 10.2 fL 9.5-13.5 [facility] Platelets Auto (Bld) [#/Vol] on 12-21-2023 Platelets (Bld) [#/Vol] 502 10 3/uL High 150-450 [facility] Prothrombin time (PT)on 12-03 PT Coag (PPP) [Time] 11.1 s 9.0-11.6 [facility] RBC Auto (Bld) [#/Vol]on RBC (Bld) [#/Vol] 3.48 10 6/uL Low 4.70-6.10 [facility] Serum or plasma albumin/glob ulin mass ratioon 12-21-2023 Albumin/Globulin [Mass ratio] 0.7 {ratio} [facility] Serum or plasma anion gap de terminationon 12-21-2023 Anion gap [Moles/Vol] 12.4 mmol[facility]-2023 L Normal [facility] Basophils Auto (Bld) [#/Vol] on 12-10-2023 Basophils (Bld) [#/Vol] 0.1 10 3/uL 0.0-0.1 [facility] Basophils/100 WBC Auto (Bld) on 12-10-2023 Basophils/100 WBC (Bld) 0.9 % 0.2-2.0 [facility] Eosinophils/100 WBC Auto (Bl d)on 12-10-2023 Eosinophils/100 WBC (Bld) 2.6 % 0.9-7.0 [facility] Erythrocyte distribution wid th Auto (RBC) [Ratio]on 12-10-2023 Erythrocyte distribution width (RBC) [Ratio] 17.7 % High 11.0-15.0 [facility] Estimated glomerular filtrat ion rate (GFR) non- Americanon 12-10-2023 GFR/1.73 sq M.predicted among non-blacks MDRD (S/P/Bld) [Vol rate/Area] 38 mL/min/{1.73_m2} Low >=60 [facility] Globulin Calc (S) [Mass/Vol] on 12-10-2023 Globulin (S) [Mass/Vol] 3.9 g/dL [facility] Hematocrit Auto (Bld) [Volum e fraction]on 12-10-2023 Hematocrit (Bld) [Volume fraction] 34.2 % Low 42.0-54.0 [facility] Hemoglobin [Mass/volume] in Bloodon 12-10-2023 Hemoglobin (Bld) [Mass/Vol] 10.5 g/dL Low 14.0-18.0 [facility] Laboratory - Chemistry and C hemistry - challengeon 12-10-2023 Albumin [Mass/Vol] 2.8 g/dL Low 3.4-5.[address] [facility] ALP [Catalytic activity/Vol] 119 U/L High 46-116 [facility] ALT [Catalytic activity/Vol] 11 U/L Low 16-63 [facility] AST [Catalytic activity/Vol] 10 U/L Low 15-37 [facility] Bilirubin [Mass/Vol] 0.4 mg/dL 0.2-1.0 [facility] Calcium [Mass/Vol] 8.4 mg/dL Low 8.5-10.[address] [facility] Chloride [Moles/Vol] 101 mmol/L 98-107 [facility] CO2 [Moles/Vol] 27.0 mmol/L 21.0-32.0 [facility] Creatinine [Mass/Vol] 1.83 mg/dL High 0.70-1.30 [facility] GFR/1.73 sq M.predicted MDRD (S/P/Bld) [Vol rate/Area] 46 mL/min/{1.73_m2} Low >=60 [facility] Glucose [Mass/Vol] 113 mg/dL High 74-[address] [facility] Potassium [Moles/Vol] 3.3 mmol/L Low 3.5-5.1 [facility] Protein [Mass/Vol] 6.7 g/dL 6.4-8.[address] [facility] Sodium [Moles/Vol] 134 mmol/L Low 136-[address] [facility] Urea nitrogen [Mass/Vol] 21.0 mg/dL High 7.0-18.0 [facility] Urea nitrogen/Creatinine [Mass ratio] 11.5 mg/mg [facility] Laboratory - Hematology and Cell countson 12-10-2023 Immature granulocytes/100 WBC (Bld) 0.3 % 0.0-0.5 [facility] Leukocytes [#/volume] correc jorge for nucleated erythrocytes in Blood by Automated counon 12-10-2023 WBC corrected for nucl RBC Auto (Bld) [#/Vol] 9.8 10 3/uL 4.0-11.0 [facility] Lymphocytes Auto (Bld) [#/Vo l]on 12-10-2023 Lymphocytes (Bld) [#/Vol] 1.5 10 3/uL 1.2-3.8 [facility] Lymphocytes/100 WBC Auto (Bl d)on 12-10-2023 Lymphocytes/100 WBC (Bld) 15.8 % Low 20.5-60.0 [facility] MCH Auto (RBC) [Entitic mass ]on 12-10-2023 MCH (RBC) [Entitic mass] 25.1 pg Low 25.9-34.0 [facility] MCHC Auto (RBC) [Mass/Vol]on 12-10-2023 MCHC (RBC) [Mass/Vol] 30.7 g/dL 29.9-35.2 [facility] MCV Auto (RBC) [Entitic vol] on 12-10-2023 MCV (RBC) [Entitic vol] 81.6 fL 80.0-94.0 [facility] Monocytes Auto (Bld) [#/Vol] on 12-10-2023 Monocytes (Bld) [#/Vol] 1.2 10 3/uL High 0.3-0.8 [facility] Monocytes/100 WBC Auto (Bld) on 12-10-2023 Monocytes/100 WBC (Bld) 11.9 % 1.7-12.0 [facility] Neutrophils Auto (Bld) [#/Vo l]on 12-10-2023 Neutrophils (Bld) [#/Vol] 6.7 10 3/uL High 1.4-6.5 [facility] Neutrophils/100 WBC Auto (Bl d)on 12-10-2023 Neutrophils/100 WBC (Bld) 68.5 % 43.0-75.0 [facility] No Panel Informationon 12-09 Eosinophils # (Auto) 0.3 10 3/uL 0.0-0.7 [facility] Immature Granulocyte # (Auto) 0.03 10 3/uL 0.00-0.03 [facility] 2.8 g/dL Low 3.4-5.0 [facility] 0.3 10 3/uL 0.0-0.7 [facility] 119 U/L High 46-116 [facility] 11 U/L Low 16-63 [facility] 10 U/L Low 15-37 [facility] 11.5 [facility] 0.03 10 3/uL 0.00-0.03 [facility] 21.0 mg/dL High 7.0-18.0 [facility] 0.3 % 0.0-0.5 [facility] 8.4 mg/dL Low 8.5-10.1 [facility] 101 mmol/L 98-107 [facility] 27.0 mmol/L 21.0-32.0 [facility] 1.83 mg/dL High 0.70-1.30 [facility] 46 Low >=60 [facility] 113 mg/dL High 74-106 [facility] 3.3 mmol/L Low 3.5-5.1 [facility] 134 mmol/L Low 136-145 [facility] 0.4 mg/dL 0.2-1.0 [facility] 6.7 g/dL 6.4-8.2 [facility] Platelet mean volume Auto (B ld) [Entitic vol]on 12-10-2023 Platelet mean volume (Bld) [Entitic vol] 10.2 fL 9.5-13.5 [facility] Platelets Auto (Bld) [#/Vol] on 12-10-2023 Platelets (Bld) [#/Vol] 240 10 3/uL 150-450 [facility] RBC Auto (Bld) [#/Vol]on RBC (Bld) [#/Vol] 4.19 10 6/uL Low 4.70-6.10 [facility] Serum or plasma albumin/glob ulin mass ratioon 12-10-2023 Albumin/Globulin [Mass ratio] 0.7 {ratio} [facility] Serum or plasma anion gap de terminationon 12-10-2023 Anion gap [Moles/Vol] 9.3 mmol/L [facility] Basophils Auto (Bld) [#/Vol] on 12-09-2023 Basophils (Bld) [#/Vol] 0.1 10 3/uL 0.0-0.1 [facility] Basophils/100 WBC Auto (Bld) on 12-09-2023 Basophils/100 WBC (Bld) 1.0 % 0.2-2.0 [facility] Eosinophils/100 WBC Auto (Bl d)on 12-09-2023 Eosinophils/100 WBC (Bld) 1.6 % 0.9-7.0 [facility] Erythrocyte distribution wid th Auto (RBC) [Ratio]on 12-09-2023 Erythrocyte distribution width (RBC) [Ratio] 17.7 % High 11.0-15.0 [facility] Estimated glomerular filtrat ion rate (GFR) non- Americanon 12-09-2023 GFR/1.73 sq M.predicted among non-blacks MDRD (S/P/Bld) [Vol rate/Area] 31 mL/min/{1.73_m2} Low >=60 [facility] Fibrin D-dimer [Presence] in Platelet poor plasma by Latex agglutinationon 12-09-2023 Fibrin D-dimer LA Ql (PPP) 3.76 mg/L FEU High <=0.59 [facility] Comment on above: RESULTS CALLED TO DR [...] on 12-09-2023 Globulin (S) [Mass/Vol] 4.6 g/dL [facility] Hematocrit Auto (Bld) [Volum e fraction]on 12-09-2023 Hematocrit (Bld) [Volume fraction] 39.2 % Low 42.0-54.0 [facility] Hemoglobin [Mass/volume] in Bloodon 12-09-2023 Hemoglobin (Bld) [Mass/Vol] 12.2 g/dL Low 14.0-18.0 [facility] Laboratory - Chemistry and C hemistry - challengeon 12-09-2023 Lactate [Moles/Vol] 2.9 mmol/L High 0.4-2.0 [facility] Comment on above: RESULTS CALLED TO RM SHARPE RN Bilirubin Ql (U) Negative NEGATIVE [facility] Glucose (U) [Mass/Vol] 500 mg/dL Abnormal NEGATIVE [facility] Ketones Ql (U) Negative NEGATIVE [facility] pH (U) 6.5 [pH] 5.0-9.0 [facility] Specific gravity (U) [Rel density] 1.020 1.005-1.02 5 [facility] Urobilinogen Qn (U) 0.2 {Brendan'U}/dL 0.2-1.0 [facility] Albumin [Mass/Vol] 3.5 g/dL 3.4-5.[address] [facility] ALP [Catalytic activity/Vol] 141 U/L High 46-116 [facility] ALT [Catalytic activity/Vol] 13 U/L Low 16-63 [facility] AST [Catalytic activity/Vol] 8 U/L Low 15-37 [facility] Bilirubin [Mass/Vol] 0.7 mg/dL 0.2-1.0 [facility] Calcium [Mass/Vol] 9.6 mg/dL 8.5-10.[address] [facility] Chloride [Moles/Vol] 99 mmol/L 98-107 [facility] CO2 [Moles/Vol] 21.7 mmol/L 21.0-32.0 [facility] Creatinine [Mass/Vol] 2.17 mg/dL High 0.70-1.30 [facility] GFR/1.73 sq M.predicted MDRD (S/P/Bld) [Vol rate/Area] 38 mL/min/{1.73_m2} Low >=60 [facility] Glucose [Mass/Vol] 191 mg/dL High 74-[address] [facility] Magnesium [Mass/Vol] 1.6 mg/dL Low 1.8-2.4 [facility] Potassium [Moles/Vol] 3.8 mmol/L 3.5-5.1 [facility] Protein [Mass/Vol] 8.1 g/dL 6.4-8.[address] [facility] Sodium [Moles/Vol] 135 mmol/L Low 136-[address] [facility] Urea nitrogen [Mass/Vol] 20.0 mg/dL High 7.0-18.0 [facility] Urea nitrogen/Creatinine [Mass ratio] 9.2 mg/mg [facility] Laboratory - Hematology and Cell countson 12-09-2023 Immature granulocytes/100 WBC (Bld) 0.3 % 0.0-0.5 [facility] Laboratory - Microbiology an d Antimicrobial susceptibilityon 12-09-2023 SARS-CoV-2 (COVID-19) RNA NELLY+probe Ql (Unsp spec) Negative NEGATIVE [facility] Comment on above: This test has not [...] inform ationon 12-09-2023 Appearance (U) CLEAR CLEAR [facility] Color (U) YELLOW YELLOW [facility] Laboratory - Urinalysison Leukocyte esterase Test strip Ql (U) Negative NEGATIVE [facility] Nitrite Ql (U) Negative NEGATIVE [facility] Protein Ql (U) Negative NEG/TRACE [facility] Leukocytes [#/volume] correc jorge for nucleated erythrocytes in Blood by Automated counon 12-09-2023 WBC corrected for nucl RBC Auto (Bld) [#/Vol] 9.3 10 3/uL 4.0-11.0 [facility] Lymphocytes Auto (Bld) [#/Vo l]on 12-09-2023 Lymphocytes (Bld) [#/Vol] 1.5 10 3/uL 1.2-3.8 [facility] Lymphocytes/100 WBC Auto (Bl d)on 12-09-2023 Lymphocytes/100 WBC (Bld) 15.7 % Low 20.5-60.0 [facility] MCH Auto (RBC) [Entitic mass ]on 12-09-2023 MCH (RBC) [Entitic mass] 25.6 pg Low 25.9-34.0 [facility] MCHC Auto (RBC) [Mass/Vol]on 12-09-2023 MCHC (RBC) [Mass/Vol] 31.1 g/dL 29.9-35.2 [facility] MCV Auto (RBC) [Entitic vol] on 12-09-2023 MCV (RBC) [Entitic vol] 82.4 fL 80.0-94.0 [facility] Monocytes Auto (Bld) [#/Vol] on 12-09-2023 Monocytes (Bld) [#/Vol] 0.9 10 3/uL High 0.3-0.8 [facility] Monocytes/100 WBC Auto (Bld) on 12-09-2023 Monocytes/100 WBC (Bld) 9.1 % 1.7-12.0 [facility] Neutrophils Auto (Bld) [#/Vo l]on 12-09-2023 Neutrophils (Bld) [#/Vol] 6.7 10 3/uL High 1.4-6.5 [facility] Neutrophils/100 WBC Auto (Bl d)on 12-09-2023 Neutrophils/100 WBC (Bld) 72.3 % 43.0-75.0 [facility] No Panel Informationon 12-08 2.9 mmol/L High 0.4-2.0 [facility] Urine Microscopic Review NO [facility] Urine Occult Blood Negative NEGATIVE [facility] Negative NEG/TRACE [facility] NO [facility] CLEAR CLEAR [facility] YELLOW YELLOW [facility] 500 mg/dL Abnormal NEGATIVE [facility] 6.5 5.0-9.0 [facility] 1.020 1.005-1.02 5 [facility] 0.2 EU/dL 0.2-1.0 [facility] Eosinophils # (Auto) 0.2 10 3/uL 0.0-0.7 [facility] Immature Granulocyte # (Auto) 0.03 10 3/uL 0.00-0.03 [facility] Troponin I High Sensitivity 8.7 pg/mL 4.0-76.1 [facility] Comment on above: CUT-OFF POINTS HAVE BEEN [...] DIAGNOSTIC AND CLINICAL INFORMATION. 8.7 pg/mL 4.0-76.1 [facility] 1.6 mg/dL Low 1.8-2.4 [facility] 3.5 g/dL 3.4-5.0 [facility] 0.2 10 3/uL 0.0-0.7 [facility] 141 U/L High 46-116 [facility] 13 U/L Low 16-63 [facility] 8 U/L Low 15-37 [facility] 9.2 [facility] 0.03 10 3/uL 0.00-0.03 [facility] 20.0 mg/dL High 7.0-18.0 [facility] 0.3 % 0.0-0.5 [facility] 9.6 mg/dL 8.5-10.1 [facility] 99 mmol/L 98-107 [facility] 21.7 mmol/L 21.0-32.0 [facility] 2.17 mg/dL High 0.70-1.30 [facility] 38 Low >=60 [facility] 191 mg/dL High 74-106 [facility] 3.8 mmol/L 3.5-5.1 [facility] 135 mmol/L Low 136-145 [facility] 0.7 mg/dL 0.2-1.0 [facility] 8.1 g/dL 6.4-8.2 [facility] Platelet mean volume Auto (B ld) [Entitic vol]on 12-09-2023 Platelet mean volume (Bld) [Entitic vol] 10.7 fL 9.5-13.5 [facility] Platelets Auto (Bld) [#/Vol] on 12-09-2023 Platelets (Bld) [#/Vol] 294 10 3/uL 150-450 [facility] RBC Auto (Bld) [#/Vol]on RBC (Bld) [#/Vol] 4.76 10 6/uL 4.70-6.10 [facility] Serum or plasma albumin/glob ulin mass ratioon 12-09-2023 Albumin/Globulin [Mass ratio] 0.8 {ratio} [facility] Serum or plasma anion gap de terminationon 12-09-2023 Anion gap [Moles/Vol] 18.1 mmol/L [facility] Outside Operativeon 11-28-19 24 Outside Operative [id number]#1.00TIFF Normal [facility] Physician Orderon 11-28-2023 Physician Order [id number]#1.00TIFF Normal [facility] Basophils Auto (Bld) [#/Vol] on 11-26-2023 Basophils (Bld) [#/Vol] 0.1 10 3/uL 0.0-0.1 [facility] Basophils/100 WBC Auto (Bld) on 11-26-2023 Basophils/100 WBC (Bld) 1.1 % 0.2-2.0 [facility] Eosinophils/100 WBC Auto (Bl d)on 11-26-2023 Eosinophils/100 WBC (Bld) 3.5 % 0.9-7.0 [facility] Erythrocyte distribution wid th Auto (RBC) [Ratio]on 11-26-2023 Erythrocyte distribution width (RBC) [Ratio] 20.0 % High 11.0-15.0 [facility] Estimated glomerular filtrat ion rate (GFR) non- Americanon 11-26-2023 GFR/1.73 sq M.predicted among non-blacks MDRD (S/P/Bld) [Vol rate/Area] 41 mL/min/{1.73_m2} Low >=60 [facility] Globulin Calc (S) [Mass/Vol] on 11-26-2023 Globulin (S) [Mass/Vol] 4.2 g/dL [facility] Hematocrit Auto (Bld) [Volum e fraction]on 11-26-2023 Hematocrit (Bld) [Volume fraction] 33.1 % Low 42.0-54.0 [facility] Hemoglobin [Mass/volume] in Bloodon 11-26-2023 Hemoglobin (Bld) [Mass/Vol] 9.8 g/dL Low 14.0-18.0 [facility] Laboratory - Chemistry and C hemistry - challengeon 11-26-2023 Albumin [Mass/Vol] 3.2 g/dL Low 3.4-5.[address] [facility] ALP [Catalytic activity/Vol] 143 U/L High 46-116 [facility] ALT [Catalytic activity/Vol] 16 U/L 16-63 [facility] AST [Catalytic activity/Vol] 14 U/L Low 15-37 [facility] Bilirubin [Mass/Vol] 0.5 mg/dL 0.2-1.0 [facility] Calcium [Mass/Vol] 9.1 mg/dL 8.5-10.[address] [facility] Chloride [Moles/Vol] 101 mmol/L 98-107 [facility] CO2 [Moles/Vol] 24.2 mmol/L 21.0-32.0 [facility] Creatinine [Mass/Vol] 1.72 mg/dL High 0.70-1.30 [facility] GFR/1.73 sq M.predicted MDRD (S/P/Bld) [Vol rate/Area] 50 mL/min/{1.73_m2} Low >=60 [facility] Glucose [Mass/Vol] 132 mg/dL High 74-[address] [facility] Lactate [Moles/Vol] 3.6 mmol/L High 0.4-2.0 [facility] Comment on above: RESULTS CALLED TO DR CROOK/YASMIN Potassium [Moles/Vol] 3.7 mmol/L 3.5-5.1 [facility] Protein [Mass/Vol] 7.4 g/dL 6.4-8.[address] [facility] Sodium [Moles/Vol] 138 mmol/L 136-[address] [facility] Urea nitrogen [Mass/Vol] 26.0 mg/dL High 7.0-18.0 [facility] Urea nitrogen/Creatinine [Mass ratio] 15.1 mg/mg [facility] Laboratory - Hematology and Cell countson 11-26-2023 ESR (Bld) [Velocity] 96 mm/h High <=20 [facility] Immature granulocytes/100 WBC (Bld) 0.4 % 0.0-0.5 [facility] Leukocytes [#/volume] correc jorge for nucleated erythrocytes in Blood by Automated counon 11-26-2023 WBC corrected for nucl RBC Auto (Bld) [#/Vol] 9.1 10 3/uL 4.0-11.0 [facility] Lymphocytes Auto (Bld) [#/Vo l]on 11-26-2023 Lymphocytes (Bld) [#/Vol] 2.1 10 3/uL 1.2-3.8 [facility] Lymphocytes/100 WBC Auto (Bl d)on 11-26-2023 Lymphocytes/100 WBC (Bld) 23.4 % 20.5-60.0 [facility] MCH Auto (RBC) [Entitic mass ]on 11-26-2023 MCH (RBC) [Entitic mass] 24.8 pg Low 25.9-34.0 [facility] MCHC Auto (RBC) [Mass/Vol]on 11-26-2023 MCHC (RBC) [Mass/Vol] 29.6 g/dL Low 29.9-35.2 [facility] MCV Auto (RBC) [Entitic vol] on 11-26-2023 MCV (RBC) [Entitic vol] 83.8 fL 80.0-94.0 [facility] Monocytes Auto (Bld) [#/Vol] on 11-26-2023 Monocytes (Bld) [#/Vol] 0.8 10 3/uL 0.3-0.8 [facility] Monocytes/100 WBC Auto (Bld) on 11-26-2023 Monocytes/100 WBC (Bld) 8.5 % 1.7-12.0 [facility] Neutrophils Auto (Bld) [#/Vo l]on 11-26-2023 Neutrophils (Bld) [#/Vol] 5.7 10 3/uL 1.4-6.5 [facility] Neutrophils/100 WBC Auto (Bl d)on 11-26-2023 Neutrophils/100 WBC (Bld) 63.1 % 43.0-75.0 [facility] No Panel InformationOrdered By: HERNAN CROOK on 11-26-2023 Blood Culture 2 [facility] Blood Culture 1 [facility] No Panel Informationon 11-25 C-Reactive Protein, Quantitative <0.50 mg/dL <=0.50 [facility] Eosinophils # (Auto) 0.3 10 3/uL 0.0-0.7 [facility] Immature Granulocyte # (Auto) 0.04 10 3/uL High 0.00-0.03 [facility] Platelet mean volume Auto (B ld) [Entitic vol]on 11-26-2023 Platelet mean volume (Bld) [Entitic vol] 10.4 fL 9.5-13.5 [facility] Platelets Auto (Bld) [#/Vol] on 11-26-2023 Platelets (Bld) [#/Vol] 371 10 3/uL 150-450 [facility] RBC Auto (Bld) [#/Vol]on RBC (Bld) [#/Vol] 3.95 10 6/uL Low 4.70-6.10 [facility] Serum or plasma albumin/glob ulin mass ratioon 11-26-2023 Albumin/Globulin [Mass ratio] 0.8 {ratio} [facility] Serum or plasma anion gap de terminationon 11-26-2023 Anion gap [Moles/Vol] 16.5 mmol/L Fi [facility] Progress Note-Physicianon Progress Note-Physician [id number]#1.00TIFF Normal [facility] Basophils Auto (Bld) [#/Vol] on 11-15-2023 Basophils (Bld) [#/Vol] 0.1 10 3/uL 0.0-0.1 [facility] Basophils/100 WBC Auto (Bld) on 11-15-2023 Basophils/100 WBC (Bld) 0.8 % 0.2-2.0 [facility] Eosinophils/100 WBC Auto (Bl d)on 11-15-2023 Eosinophils/100 WBC (Bld) 5.9 % 0.9-7.0 [facility] Erythrocyte distribution wid th Auto (RBC) [Ratio]on 11-15-2023 Erythrocyte distribution width (RBC) [Ratio] 20.6 % High 11.0-15.0 [facility] Estimated glomerular filtrat ion rate (GFR) non- Americanon 11-15-2023 GFR/1.73 sq M.predicted among non-blacks MDRD (S/P/Bld) [Vol rate/Area] 44 mL/min/{1.73_m2} Low >=60 [facility] Globulin Calc (S) [Mass/Vol] on 11-15-2023 Globulin (S) [Mass/Vol] 4.7 g/dL [facility] Hematocrit Auto (Bld) [Volum e fraction]on 11-15-2023 Hematocrit (Bld) [Volume fraction] 27.6 % Low 42.0-54.0 [facility] Hemoglobin [Mass/volume] in Bloodon 11-15-2023 Hemoglobin (Bld) [Mass/Vol] 8.5 g/dL Low 14.0-18.0 [facility] Laboratory - Chemistry and C hemistry - challengeon 11-15-2023 Albumin [Mass/Vol] 2.4 g/dL Low 3.4-5.[address] [facility] ALP [Catalytic activity/Vol] 194 U/L High 46-116 [facility] ALT [Catalytic activity/Vol] 22 U/L 16-63 [facility] AST [Catalytic activity/Vol] 25 U/L 15-37 [facility] Bilirubin [Mass/Vol] 0.9 mg/dL 0.2-1.0 [facility] Calcium [Mass/Vol] 8.9 mg/dL 8.5-10.[address] [facility] Chloride [Moles/Vol] 97 mmol/L Low 98-107 [facility] CO2 [Moles/Vol] 26.6 mmol/L 21.0-32.0 [facility] Creatinine [Mass/Vol] 1.63 mg/dL High 0.70-1.30 [facility] GFR/1.73 sq M.predicted MDRD (S/P/Bld) [Vol rate/Area] 53 mL/min/{1.73_m2} Low >=60 [facility] Glucose [Mass/Vol] 226 mg/dL High 74-[address] [facility] Lactate [Moles/Vol] 1.4 mmol/L 0.4-2.0 [facility] Potassium [Moles/Vol] 4.1 mmol/L 3.5-5.1 [facility] Protein [Mass/Vol] 7.1 g/dL 6.4-8.[address] [facility] Sodium [Moles/Vol] 135 mmol/L Low 136-[address] [facility] Urea nitrogen [Mass/Vol] 24.0 mg/dL High 7.0-18.0 [facility] Urea nitrogen/Creatinine [Mass ratio] 14.7 mg/mg [facility] Laboratory - Hematology and Cell countson 11-15-2023 Immature granulocytes/100 WBC (Bld) 0.6 % High 0.0-0.5 [facility] Leukocytes [#/volume] correc jorge for nucleated erythrocytes in Blood by Automated counon 11-15-2023 WBC corrected for nucl RBC Auto (Bld) [#/Vol] 9.5 10 3/uL 4.0-11.0 [facility] Lymphocytes Auto (Bld) [#/Vo l]on 11-15-2023 Lymphocytes (Bld) [#/Vol] 1.3 10 3/uL 1.2-3.8 [facility] Lymphocytes/100 WBC Auto (Bl d)on 11-15-2023 Lymphocytes/100 WBC (Bld) 14.1 % Low 20.5-60.0 [facility] MCH Auto (RBC) [Entitic mass ]on 11-15-2023 MCH (RBC) [Entitic mass] 24.9 pg Low 25.9-34.0 [facility] MCHC Auto (RBC) [Mass/Vol]on 11-15-2023 MCHC (RBC) [Mass/Vol] 30.8 g/dL 29.9-35.2 [facility] MCV Auto (RBC) [Entitic vol] on 11-15-2023 MCV (RBC) [Entitic vol] 80.9 fL 80.0-94.0 [facility] Monocytes Auto (Bld) [#/Vol] on 11-15-2023 Monocytes (Bld) [#/Vol] 1.1 10 3/uL High 0.3-0.8 [facility] Monocytes/100 WBC Auto (Bld) on 11-15-2023 Monocytes/100 WBC (Bld) 11.9 % 1.7-12.0 [facility] Neutrophils Auto (Bld) [#/Vo l]on 11-15-2023 Neutrophils (Bld) [#/Vol] 6.4 10 3/uL 1.4-6.5 [facility] Neutrophils/100 WBC Auto (Bl d)on 11-15-2023 Neutrophils/100 WBC (Bld) 66.7 % 43.0-75.0 [facility] No Panel InformationOrdered By: Fely Marker on 11-15-2023 Blood Culture 2 [facility] Blood Culture 1 [facility] No Panel Informationon 11-14 Eosinophils # (Auto) 0.6 10 3/uL 0.0-0.7 [facility] Immature Granulocyte # (Auto) 0.06 10 3/uL High 0.00-0.03 [facility] Platelet mean volume Auto (B ld) [Entitic vol]on 11-15-2023 Platelet mean volume (Bld) [Entitic vol] 10.8 fL 9.5-13.5 [facility] Platelets Auto (Bld) [#/Vol] on 11-15-2023 Platelets (Bld) [#/Vol] 338 10 3/uL 150-450 [facility] RBC Auto (Bld) [#/Vol]on RBC (Bld) [#/Vol] 3.41 10 6/uL Low 4.70-6.10 [facility] Serum or plasma albumin/glob ulin mass ratioon 11-15-2023 Albumin/Globulin [Mass ratio] 0.5 {ratio} [facility] Serum or plasma anion gap de terminationon 11-15-2023 Anion gap [Moles/Vol] 15.5 [facility]L [facility] BASIC METABOLIC PANLon 11-13 Anion gap [Moles/Vol] 10 mmol/L Normal 5-15 [facility] Comment on above: Performed By: #### KENDALL AHUJA, , 2776-06 ####[facility] ([id number])[address], [place] [address] Calcium [Mass/Vol] 8.8 mg/dL Normal 8.5-10.5 [facility] Comment on above: Performed By: #### KENDALL AHUJA, , 2776-06 ####[facility] ([id number])[address], [address] [place] [address] Chloride [Moles/Vol] 99 mmol/L Normal 98-109 [facility] Comment on above: Performed By: #### KENDALL AHUJA, , 2776-06 ####[facility] ([id number])[address] [address] [place] [address] CO2 [Moles/Vol] 26 mmol/L Normal 22-32 [facility] Comment on above: Performed By: #### C KENDALL CANALES, , 2776-06 ####[facility] ([id number])[address] [address] [place] [address] Creatinine [Mass/Vol] 1.61 mg/dL High 0.60-1.30 [facility] Comment on above: Result Comment: METH OD TRACEABLE TO IDMS STANDARD Performed By: #### C ALLY [facility], , 2776-06 ####[facility] ([id number])[address] [address] [place] [address] GFR/1.73 sq M.predicted among non-blacks MDRD (S/P/Bld) [Vol rate/Area] 49 mL/min/{1.73_m2} Low >59 [facility] Comment on above: Result Comment: Reported eGFR is based on the CKD-EPI 2020 equation that does not use a race coefficient. Performed By: #### C KENDALL CANALES, , 2776-06 ####[facility] ([id number])[address] [address] [address] Glucose [Mass/Vol] 184 mg/dL High 65-99 [facility] Comment on above: Performed By: #### C KENDALL CANALES, , 2776-06 ####[facility] ([id number])[address] [address] [place] [address] Potassium [Moles/Vol] 4.0 mmol/L Normal 3.5-5.0 [facility] Comment on above: Performed By: #### KENDALL AHUJA, , 2776-06 ####[facility] ([id number])[address] [place] [address] Sodium [Moles/Vol] 135 mmol/L Normal 134-146 [facility] Comment on above: Performed By: #### C ALLY, [facility], , 2776-06 ####[facility] ([id number])[address], [address] [place] [address] Urea nitrogen [Mass/Vol] 23 mg/dL Normal 5-23 [facility] Comment on above: Performed By: #### C ALLY, [facility], , 2776-06 ####[facility] ([id number])[address] [address] COMPLETE BLOOD COUNTon 11-13 Erythrocyte distribution width (RBC) [Ratio] 22.8 % High 11.5-15.0 [facility] Comment on above: Performed By: #### Snehal CANALES, [facility], , 2776-06 ####[facility] ([id number])[address] [address] [place] [address] Hematocrit (Bld) [Volume fraction] 25.1 % Low 39-49 [facility] Comment on above: Performed By: #### Snehal CANALES, [facility], , 2776-06 ####[facility] ([id number])[address] [address] Hemoglobin (Bld) [Mass/Vol] 8.1 g/dL Low 13.0-17.0 [facility] Comment on above: Performed By: #### Snehal CANALES, [facility], , 2776-06 ####[facility] ([id number])[address] [address] MCH (RBC) [Entitic mass] 25.1 pg Low 27-34 [facility] Comment on above: Performed By: #### Snehal CANALES, KENDALL, , 2776-06 ####[facility] ([id number])[address], [place] [address] MCHC (RBC) [Mass/Vol] 32.4 g/dL Normal 32-36 [facility] Comment on above: Performed By: #### Snehal CANALES, KENDALL, , 2776-06 ####[facility] ([id number])[address], [address] [place] [address] MCV (RBC) [Entitic vol] 77 fL Low 80-100 [facility] Comment on above: Performed By: #### Snehal CANALES, KENDALL, , 2776-06 ####[facility] ([id number])[address], [place] [address] Platelet mean volume (Bld) [Entitic vol] 8.8 fL Normal 7-12 [facility] Comment on above: Performed By: #### KENDALL AHUJA, , 2776-06 ####[facility] ([id number])[address] [address] [place] [address] Platelets (Bld) [#/Vol] 232 10*3/uL Normal 150-450 [facility] Comment on above: Performed By: #### KENDALL AHUJA, , 2776-06 ####[facility] ([id number])[address] [address], [place] [address] RBC COUNT 3.25 X10E12/L Low 4.10-5.70 [facility] Comment on above: Performed By: #### Snehal CANALES, BMP, , 2776-06 ####[facility] ([id number])[address] [address] [place] [address] WBC (Bld) [#/Vol] 8.4 10*3/uL Normal 4.0-11.0 [facility] Comment on above: Performed By: #### Snehal CANALES BMP, , 2776-06 ####[facility] ([id number])[address] [place] [address] Glucose Glucometer (BldC) [M ass/Vol]on 11-14-2023 Glucose [Mass/Vol] 173 mg/dL High 65-99 [facility] Glucose [Mass/Vol] 279 mg/dL High 65-99 [facility] Glucose [Mass/Vol] 249 mg/dL High 65-99 [facility] MAGNESIUMon 11-14-2023 Magnesium [Mass/Vol] 2.1 mg/dL Normal 1.8-2.6 [facility] Comment on above: Performed By: #### 1 9123-9 ####[facility] ([id number])[address], [place] [address] Magnesium [Mass/Vol] mg/dL Critically low 1.8-2.6 [facility] Comment on above: Performed By: #### 1 9123-9 ####[facility] ([id number])[address], [place] [address] Magnesium [Mass/Vol] 1.7 mg/dL Low 1.8-2.6 [facility] Comment on above: Performed By: #### C KENDALL CANALES, , 1 ####[facility] ([id number])[address], [place] [address] PHOSPHORUSon 11-14-2023 Phosphate [Mass/Vol] 3.6 mg/dL Normal 2.4-4.9 [facility] Comment on above: Performed By: #### C KENDALL CANALES, , 1 ####[facility] ([id number])[address], [place] [address] BASIC METABOLIC PANLon 11-12 Anion gap [Moles/Vol] 10 mmol/L Normal 5-15 [facility] Comment on above: Performed By: #### C ALLY, BMP, , 2776-06 ####[facility] ([id number])[address] [address] [place] [address] Calcium [Mass/Vol] 8.9 mg/dL Normal 8.5-10.5 [facility] Comment on above: Performed By: #### C ALLY, BMP, , 2776-06 ####[facility] ([id number])[address] [address] [place] [address] Chloride [Moles/Vol] 98 mmol/L Normal 98-109 [facility] Comment on above: Performed By: #### Snehal CANALES, KENDALL, , 2776-06 ####[facility] ([id number])[address] [address] [address] CO2 [Moles/Vol] 27 mmol/L Normal 22-32 [facility] Comment on above: Performed By: #### Snehal CANALES, KENDALL, , 2776-06 ####[facility] ([id number])[address] [address] [address] Creatinine [Mass/Vol] 1.47 mg/dL High 0.60-1.30 [facility] Comment on above: Result Comment: METH OD TRACEABLE TO IDMS STANDARD Performed By: #### C ALLY, BMP, , 2776-06 ####[facility] ([id number])[address] [address] [address] GFR/1.73 sq M.predicted among non-blacks MDRD (S/P/Bld) [Vol rate/Area] 55 mL/min/{1.73_m2} Low >59 [facility] Comment on above: Result Comment: Reported eGFR is based on the CKD-EPI 2020 equation that does not use a race coefficient. Performed By: #### C BC, BMP, , 2776-06 ####[facility] ([id number])[address], [address] [place] [address] Glucose [Mass/Vol] 164 mg/dL High 65-99 [facility] Comment on above: Performed By: #### C KENDALL CANALES, , 2776-06 ####[facility] ([id number])[address], [address] [place] [address] Potassium [Moles/Vol] 3.8 mmol/L Normal 3.5-5.0 [facility] Comment on above: Performed By: #### C KENDALL CANALES, , 2776-06 ####[facility] ([id number])[address], [address] [place] [address] Sodium [Moles/Vol] 135 mmol/L Normal 134-146 [facility] Comment on above: Performed By: #### KENDALL AHUJA, , 2776-06 ####[facility] ([id number])[address], [address] [place] [address] Urea nitrogen [Mass/Vol] 26 mg/dL High 5-23 [facility] Comment on above: Performed By: #### C KENDALL CANALES, , 2776-06 ####[facility] ([id number])[address], [address] [address] COMPLETE BLOOD COUNTon 11-12 Erythrocyte distribution width (RBC) [Ratio] 23.2 % High 11.5-15.0 [facility] Comment on above: Performed By: #### C KENDALL CANALES, , 2776-06 ####[facility] ([id number])[address], [address] [place] [address] Hematocrit (Bld) [Volume fraction] 24.7 % Low 39-49 [facility] Comment on above: Performed By: #### C KENDALL CANALES, , 2776-06 ####[facility] ([id number])[address], [address], [place] [address] Hemoglobin (Bld) [Mass/Vol] 8.2 g/dL Low 13.0-17.0 [facility] Comment on above: Performed By: #### Snehal CANALES, [facility], , 2776-06 ####[facility] ([id number])[address], [address] [place] [address] MCH (RBC) [Entitic mass] 25.7 pg Low 27-34 [facility] Comment on above: Performed By: #### Snehal CANALES, [facility], , 2776-06 ####[facility] ([id number])[address] [address] [place] [address] MCHC (RBC) [Mass/Vol] 33.4 g/dL Normal 32-36 [facility] Comment on above: Performed By: #### Snehal CANALES, [facility], , 2776-06 ####[facility] ([id number])[address] [address] [place] [address] MCV (RBC) [Entitic vol] 77 fL Low 80-100 [facility] Comment on above: Performed By: #### KENDALL AHUJA, , 2776-06 ####[facility] ([id number])[address] [address], [place] [address] Platelet mean volume (Bld) [Entitic vol] 8.8 fL Normal 7-12 [facility] Comment on above: Performed By: #### Snehal CANALES, BMP, , 2776-06 ####[facility] ([id number])[address] [address], [place] [address] Platelets (Bld) [#/Vol] 207 10*3/uL Normal 150-450 [facility] Comment on above: Performed By: #### KENDALL AHUJA, , 2776-06 ####[facility] ([id number])[address], [address], [place] [address] RBC COUNT 3.21 X10E12/L Low 4.10-5.70 [facility] Comment on above: Performed By: #### KENDALL AHUJA, , 2776-06 ####[facility] ([id number])[address], [address] [place] [address] WBC (Bld) [#/Vol] 8.1 10*3/uL Normal 4.0-11.0 [facility] Comment on above: Performed By: #### KENDALL AHUJA, , 2776-06 ####[facility] ([id number])[address], [address] [place] [address] Glucose Glucometer (BldC) [M ass/Vol]on 11-13-2023 Glucose [Mass/Vol] 230 mg/dL High 65-99 [facility] Glucose [Mass/Vol] 225 mg/dL High 65-99 [facility] Glucose [Mass/Vol] 331 mg/dL High 65-99 [facility] Glucose [Mass/Vol] 190 mg/dL High 65-99 [facility] MAGNESIUMon 11-13-2023 Magnesium [Mass/Vol] 2.1 mg/dL Normal 1.8-2.6 [facility] Comment on above: Performed By: #### KENDALL AHUJA, , 2776-06 ####[facility] ([id number])[address], [address] [place] [address] PHOSPHORUSon 11-13-2023 Phosphate [Mass/Vol] 3.8 mg/dL Normal 2.4-4.9 [facility] Comment on above: Performed By: #### KENDALL AHUJA, , 2776-06 ####[facility] ([id number])[address], [address] [place] [address] BASIC METABOLIC PANLon 11-11 Anion gap [Moles/Vol] 11 mmol/L Normal 5-15 [facility] Comment on above: Performed By: #### C ALLY, BMP #### [facility] ([id number]) [address], [address] [place] [address] Calcium [Mass/Vol] 9.0 mg/dL Normal 8.5-10.5 [facility] Comment on above: Performed By: #### C ALLY, BMP #### [facility] ([id number]) [address], [address] [place] [address] Chloride [Moles/Vol] 98 mmol/L Normal 98-109 [facility] Comment on above: Performed By: #### Snehal CANALES, BMP #### [facility] ([id number]) [address], [address] [place] [address] CO2 [Moles/Vol] 25 mmol/L Normal 22-32 [facility] Comment on above: Performed By: #### C ALLY, BMP #### [facility] ([id number]) [address] [address] [place] [address] Creatinine [Mass/Vol] 1.40 mg/dL High 0.60-1.30 [facility] Comment on above: Result Comment: METH OD TRACEABLE TO IDMS STANDARD Performed By: #### C ALLY, BMP #### [facility] ([id number]) [address] [address] [place] [address] GFR/1.73 sq M.predicted among non-blacks MDRD (S/P/Bld) [Vol rate/Area] 58 mL/min/{1.73_m2} Low >59 [facility] Comment on above: Result Comment: Reported eGFR is based on the CKD-EPI 2020 equation that does not use a race coefficient. Performed By: #### C ALLY, BMP #### [facility] ([id number]) [address], [address] [place] [address] Glucose [Mass/Vol] 194 mg/dL High 65-99 [facility] Comment on above: Performed By: #### C ALLY, BMP #### [facility] ([id number]) [address], [address] [place] [address] Potassium [Moles/Vol] 4.0 mmol/L Normal 3.5-5.0 [facility] Comment on above: Performed By: #### C ALLY, BMP #### [facility] ([id number]) [address], [address] [place] [address] Sodium [Moles/Vol] 134 mmol/L Normal 134-146 [facility] Comment on above: Performed By: #### C ALLY, BMP #### [facility] ([id number]) [address], [address] [place] [address] Urea nitrogen [Mass/Vol] 23 mg/dL Normal 5-23 [facility] Comment on above: Performed By: #### C ALLY, BMP #### [facility] ([id number]) [address], [address] [place] [address] COMPLETE BLOOD COUNTon 11-11 Erythrocyte distribution width (RBC) [Ratio] 24.1 % High 11.5-15.0 [facility] Comment on above: Performed By: #### C ALLY, BMP #### [facility] ([id number]) [address], [address] [place] [address] Hematocrit (Bld) [Volume fraction] 25.8 % Low 39-49 [facility] Comment on above: Performed By: #### C ALLY, BMP #### [facility] ([id number]) [address], [address] [place] [address] Hemoglobin (Bld) [Mass/Vol] 8.6 g/dL Low 13.0-17.0 [facility] Comment on above: Performed By: #### C ALLY, BMP #### [facility] ([id number]) [address], [address] [place] [address] MCH (RBC) [Entitic mass] 25.7 pg Low 27-34 [facility] Comment on above: Performed By: #### C ALLY, BMP #### [facility] ([id number]) [address], [address] [place] [address] MCHC (RBC) [Mass/Vol] 33.5 g/dL Normal 32-36 [facility] Comment on above: Performed By: #### C ALLY, BMP #### [facility] ([id number]) [address], [address] [place] [address] MCV (RBC) [Entitic vol] 77 fL Low 80-100 [facility] Comment on above: Performed By: #### C ALLY, BMP #### [facility] ([id number]) [address], [address] [place] [address] Platelet mean volume (Bld) [Entitic vol] 9.2 fL Normal 7-12 [facility] Comment on above: Performed By: #### C ALLY, BMP #### [facility] ([id number]) [address], [address] [place] [address] Platelets (Bld) [#/Vol] 185 10*3/uL Normal 150-450 [facility] Comment on above: Performed By: #### C ALLY, BMP #### [facility] ([id number]) [address], [address] [place] [address] RBC COUNT 3.37 X10E12/L Low 4.10-5.70 [facility] Comment on above: Performed By: #### C ALLY, BMP #### [facility] ([id number]) [address], [address] [place] [address] WBC (Bld) [#/Vol] 10.0 10*3/uL Normal 4.0-11.0 [facility] Comment on above: Performed By: #### Snehal CANALES, BMP #### [facility] ([id number]) [address], [address] [place] [address] Glucose Glucometer (BldC) [M ass/Vol]on 11-12-2023 Glucose [Mass/Vol] 230 mg/dL High 65-99 [facility] Glucose [Mass/Vol] 280 mg/dL High 65-99 [facility] Glucose [Mass/Vol] 268 mg/dL High 65-99 [facility] Glucose [Mass/Vol] 220 mg/dL High 65-99 [facility] Glucose [Mass/Vol] 205 mg/dL High 65-99 [facility] MAGNESIUMon 11-12-2023 Magnesium [Mass/Vol] 1.8 mg/dL Normal 1.8-2.6 [facility] Comment on above: Performed By: #### Snehal CANALES, BMP #### [facility] ([id number]) [address], [address] [place] [address] PHOSPHORUSon 11-12-2023 Phosphate [Mass/Vol] 3.8 mg/dL Normal 2.4-4.9 [facility] Comment on above: Performed By: #### Snehal CANALES, BMP #### [facility] ([id number]) [address], [address] [place] [address] BASIC METABOLIC PANLon 11-10 Anion gap [Moles/Vol] 8 mmol/L Normal 5-15 [facility] Comment on above: Performed By: #### Snehal CANALES, BMP #### [facility] ([id number]) [address], [address] [place] [address] Calcium [Mass/Vol] 8.7 mg/dL Normal 8.5-10.5 [facility] Comment on above: Performed By: #### C ALLY, BMP #### [facility] ([id number]) [address], [address] [place] [address] Chloride [Moles/Vol] 99 mmol/L Normal 98-109 [facility] Comment on above: Performed By: #### C ALLY, BMP #### [facility] ([id number]) [address], [address] [place] [address] CO2 [Moles/Vol] 26 mmol/L Normal 22-32 [facility] Comment on above: Performed By: #### C ALLY, BMP #### [facility] ([id number]) [address], [address] [place] [address] Creatinine [Mass/Vol] 1.45 mg/dL High 0.60-1.30 [facility] Comment on above: Result Comment: METH OD TRACEABLE TO IDMS STANDARD Performed By: #### C ALLY, BMP #### [facility] ([id number]) [address], [address] [place] [address] GFR/1.73 sq M.predicted among non-blacks MDRD (S/P/Bld) [Vol rate/Area] 56 mL/min/{1.73_m2} Low >59 [facility] Comment on above: Result Comment: Reported eGFR is based on the CKD-EPI 2020 equation that does not use a race coefficient. Performed By: #### C ALLY, BMP #### [facility] ([id number]) [address], [address] [place] [address] Glucose [Mass/Vol] 153 mg/dL High 65-99 [facility] Comment on above: Performed By: #### C ALLY, BMP #### [facility] ([id number]) [address], [address] [place] [address] Potassium [Moles/Vol] 3.9 mmol/L Normal 3.5-5.0 [facility] Comment on above: Performed By: #### C BC, BMP #### [facility] ([id number]) [address], [address] [place] [address] Sodium [Moles/Vol] 133 mmol/L Low 134-146 [facility] Comment on above: Performed By: #### C BC, BMP #### [facility] ([id number]) [address], [address] [place] [address] Urea nitrogen [Mass/Vol] 27 mg/dL High 5-23 [facility] Comment on above: Performed By: #### C ALLY, BMP #### [facility] ([id number]) [address], [address] [place] [address] COMPLETE BLOOD COUNTon 11-10 Erythrocyte distribution width (RBC) [Ratio] 24.2 % High 11.5-15.0 [facility] Comment on above: Performed By: #### C ALLY, BMP #### [facility] ([id number]) [address], [address] [place] [address] Hematocrit (Bld) [Volume fraction] 25.1 % Low 39-49 [facility] Comment on above: Performed By: #### C BC, BMP #### [facility] ([id number]) [address] [place] [address] Hemoglobin (Bld) [Mass/Vol] 8.2 g/dL Low 13.0-17.0 [facility] Comment on above: Performed By: #### C ALLY, BMP #### [facility] ([id number]) [address], [address] [place] [address] MCH (RBC) [Entitic mass] 25.5 pg Low 27-34 [facility] Comment on above: Performed By: #### C BC, BMP #### [facility] ([id number]) [address], [address] [place] [address] MCHC (RBC) [Mass/Vol] 32.7 g/dL Normal 32-36 [facility] Comment on above: Performed By: #### Snehal CANALES, BMP #### [facility] ([id number]) [address], [facility] [address] [place] [address] MCV (RBC) [Entitic vol] 78 fL Low 80-100 [facility] Comment on above: Performed By: #### Snehal CANALES, BMP #### [facility] ([id number]) [address] [address] [place] [address] Platelet mean volume (Bld) [Entitic vol] 9.0 fL Normal 7-12 [facility] Comment on above: Performed By: #### Snehal CANALES, BMP #### [facility] ([id number]) [address] [address] [place] [address] Platelets (Bld) [#/Vol] 152 10*3/uL Normal 150-450 [facility] Comment on above: Performed By: #### Snehal CANALES, BMP #### [facility] ([id number]) [address], [facility] [address] [place] [address] RBC COUNT 3.22 X10E12/L Low 4.10-5.70 [facility] Comment on above: Performed By: #### Snehal CANALES, BMP #### [facility] ([id number]) [address] [address] WBC (Bld) [#/Vol] 9.8 10*3/uL Normal 4.0-11.0 [facility] Comment on above: Performed By: #### Snehal CANALES, BMP #### [facility] ([id number]) [address] [address] [place] [address] Glucose Glucometer (BldC) [M ass/Vol]on 11-11-2023 Glucose [Mass/Vol] 184 mg/dL High 65-99 [facility] Glucose [Mass/Vol] 179 mg/dL High 65-99 [facility] Glucose [Mass/Vol] 222 mg/dL High 65-99 [facility] Glucose [Mass/Vol] 303 mg/dL High 65-99 [facility] MAGNESIUMon 11-11-2023 Magnesium [Mass/Vol] 2.4 mg/dL Normal 1.8-2.6 [facility] Comment on above: Performed By: #### Snehal CANALES, BMP #### [facility] ([id number]) [address] [place] [address] Magnesium [Mass/Vol] 1.9 mg/dL Normal 1.8-2.6 [facility] Comment on above: Performed By: #### Snehal CANALES BMP #### [facility] ([id number]) [address] [place] [address] PHOSPHORUSon 11-11-2023 Phosphate [Mass/Vol] 3.2 mg/dL Normal 2.4-4.9 [facility] Comment on above: Performed By: #### Snehal CANALES, BMP #### [facility] ([id number]) [address] [place] [address] BASIC METABOLIC PANLon 11-09 Anion gap [Moles/Vol] 6 mmol/L Normal 5-15 [facility] Comment on above: Performed By: #### KENDALL AHUJA, 2776-06 ####[facility] ([id number])[address], [place] [address] Calcium [Mass/Vol] 8.5 mg/dL Normal 8.5-10.5 [facility] Comment on above: Performed By: #### KENDALL AHUJA, 2776-06 ####[facility] ([id number])[address], [address], [place] [address] Chloride [Moles/Vol] 102 mmol/L Normal 98-109 [facility] Comment on above: Performed By: #### C ALLY, [facility], , 2776-06 ####[facility] ([id number])[address], [address] [place] [address] CO2 [Moles/Vol] 26 mmol/L Normal 22-32 [facility] Comment on above: Performed By: #### C KENDALL CANALES, , 2776-06 ####[facility] ([id number])[address] [place] [address] Creatinine [Mass/Vol] 1.59 mg/dL High 0.60-1.30 [facility] Comment on above: Result Comment: METH OD TRACEABLE TO IDMS STANDARD Performed By: #### C KENDALL CANALES, , 2776-06 ####[facility] ([id number])[address], [address], [place] [address] GFR/1.73 sq M.predicted among non-blacks MDRD (S/P/Bld) [Vol rate/Area] 50 mL/min/{1.73_m2} Low >59 [facility] Comment on above: Result Comment: Reported eGFR is based on the CKD-EPI 2020 equation that does not use a race coefficient. Performed By: #### C KENDALL CANALES, , 2776-06 ####[facility] ([id number])[address] [place] [address] Glucose [Mass/Vol] 145 mg/dL High 65-99 [facility] Comment on above: Performed By: #### C KENDALL CANALES, , 2776-06 ####[facility] ([id number])[address], [address] [place] [address] Potassium [Moles/Vol] 3.9 mmol/L Normal 3.5-5.0 [facility] Comment on above: Performed By: #### C KENDALL CANALES, , 2776-06 ####[facility] ([id number])[address] [place] [address] Sodium [Moles/Vol] 134 mmol/L Normal 134-146 [facility] Comment on above: Performed By: #### C , [facility], , 2776-06 ####[facility] ([id number])[address] [address] Urea nitrogen [Mass/Vol] 23 mg/dL Normal 5-23 [facility] Comment on above: Performed By: #### C , [facility], , 2776-06 ####[facility] ([id number])[address] [address] COMPLETE BLOOD COUNTon 11-09 Erythrocyte distribution width (RBC) [Ratio] 24.9 % High 11.5-15.0 [facility] Comment on above: Performed By: #### C , [facility], , 2776-06 ####[facility] ([id number])[address] [address] [address] Hematocrit (Bld) [Volume fraction] 24.5 % Low 39-49 [facility] Comment on above: Performed By: #### C ALLY, [facility], , 2776-06 ####[facility] ([id number])[address] [address] [address] Hemoglobin (Bld) [Mass/Vol] 7.9 g/dL Low 13.0-17.0 [facility] Comment on above: Performed By: #### C BC, BMP, , 2776-06 ####[facility] ([id number])[address] [address] [address] MCH (RBC) [Entitic mass] 25.4 pg Low 27-34 [facility] Comment on above: Performed By: #### C ALLY, [facility], , 2776-06 ####[facility] ([id number])[address] [place] [address] MCHC (RBC) [Mass/Vol] 32.4 g/dL Normal 32-36 [facility] Comment on above: Performed By: #### Snehal CANALES, BMP, , 2776-06 ####[facility] ([id number])[address] [place] [address] MCV (RBC) [Entitic vol] 78 fL Low 80-100 [facility] Comment on above: Performed By: #### Snehal CANALES, BMP, , 2776-06 ####[facility] ([id number])[address] [place] [address] Platelet mean volume (Bld) [Entitic vol] 9.1 fL Normal 7-12 [facility] Comment on above: Performed By: #### Snehal CANALES, [facility], , 2776-06 ####[facility] ([id number])[address] [place] [address] Platelets (Bld) [#/Vol] 142 10*3/uL Low 150-450 [facility] Comment on above: Performed By: #### Snehal CANALES, BMP, , 2776-06 ####[facility] ([id number])[address], [place] [address] RBC COUNT 3.14 X10E12/L Low 4.10-5.70 [facility] Comment on above: Performed By: #### Snehal CANALES, BMP, , 2776-06 ####[facility] ([id number])[address], [place] [address] WBC (Bld) [#/Vol] 9.7 10*3/uL Normal 4.0-11.0 [facility] Comment on above: Performed By: #### Snehal CANALES, KENDALL, , 2776-06 ####[facility] ([id number])[address], [place] [address] Glucose Glucometer (BldC) [M ass/Vol]on 11-10-2023 Glucose [Mass/Vol] 168 mg/dL High 65-99 [facility] Glucose [Mass/Vol] 245 mg/dL High 65-99 [facility] Glucose [Mass/Vol] 155 mg/dL High 65-99 [facility] Glucose [Mass/Vol] 153 mg/dL High 65-99 [facility] MAGNESIUMon 11-10-2023 Magnesium [Mass/Vol] 2.2 mg/dL Normal 1.8-2.6 [facility] Comment on above: Performed By: #### Snehal CANALES, BMP #### [facility] ([id number]) [address] [place] [address] Magnesium [Mass/Vol] 1.8 mg/dL Normal 1.8-2.6 [facility] Comment on above: Performed By: #### Snehal CANALES, KENDALL, , 2776-06 ####[facility] ([id number])[address], [place] [address] PHOSPHORUSon 11-10-2023 Phosphate [Mass/Vol] 3.1 mg/dL Normal 2.4-4.9 [facility] Comment on above: Performed By: #### Snehal CANALES, KENDALL, , 2776-06 ####[facility] ([id number])[address], [address] [address] BASIC METABOLIC PANLon 11-08 Anion gap [Moles/Vol] 9 mmol/L Normal 5-15 [facility] Comment on above: Performed By: #### Snehal CANALES, 2639-3, BMP, 2156-11, , 2776-06 ####[facility] ([id number])[address] [address] [place] [address] Calcium [Mass/Vol] 8.4 mg/dL Low 8.5-10.5 [facility] Comment on above: Performed By: #### Snehal BC, 2639-3, BMP, 2156-, , 2776- ####[facility] ([id number])[address] [address] [place] [address] Chloride [Moles/Vol] 104 mmol/L Normal 98-109 [facility] Comment on above: Performed By: #### Snehal CANALES, 2639-3, BMP, 2156-11, , 2776- ####[facility] ([id number])[address] [address] CO2 [Moles/Vol] 25 mmol/L Normal 22-32 [facility] Comment on above: Performed By: #### Snehal CANALES, 2639-3, BMP, 2156-11, , 2776- ####[facility] ([id number])[address] [address] Creatinine [Mass/Vol] 1.35 mg/dL High 0.60-1.30 [facility] Comment on above: Result Comment: METH OD TRACEABLE TO IDMS STANDARD Performed By: #### Snehal BC, 2639-3, BMP, 2156-11, , 2776- ####[facility] ([id number])[address] [address] GFR/1.73 sq M.predicted among non-blacks MDRD (S/P/Bld) [Vol rate/Area] 61 mL/min/{1.73_m2} Normal >59 [facility] Comment on above: Result Comment: Reported eGFR is based on the CKD-EPI 2020 equation that does not use a race coefficient. Performed By: #### C BC, 2639-3, BMP, 2156-6, 69729-1, 2776-1 ####[facility] ([id number])[address], [address], [place] [address] Glucose [Mass/Vol] 217 mg/dL High 65-99 [facility] Comment on above: Performed By: #### C BC, 2639-3, BMP, 2156-6, 28646-4, 2776- ####[facility] ([id number])[address] [address] Potassium [Moles/Vol] 4.2 mmol/L Normal 3.5-5.0 [facility] Comment on above: Performed By: #### C BC, 2639-3, BMP, 2156-6, 08170-9, 2776- ####[facility] ([id number])[address] [address] [address] Sodium [Moles/Vol] 138 mmol/L Normal 134-146 [facility] Comment on above: Performed By: #### C BC, 2639-3, BMP, 2156-6, 90354-9, 2776-1 ####[facility] ([id number])[address] [address] [address] Urea nitrogen [Mass/Vol] 23 mg/dL Normal 5-23 [facility] Comment on above: Performed By: #### C BC, 2639-3, BMP, 2156-6, 82760-6, 2776-1 ####[facility] ([id number])[address] [address] [place] [address] CK [Catalytic activity/Vol]o n 11-09-2023 CPK 44 U/L Normal 24-195 [facility] Comment on above: Performed By: #### 2 157-6, 2639-3 ####[facility] ([id number])[address], [address], [place] [address] CPK 30 U/L Normal 24-195 [facility] Comment on above: Performed By: #### C BC, 2639-3, BMP, 2156-6, , 1 ####[facility] ([id number])[address], [address] [place] [address] COMPLETE BLOOD COUNTon 11-08 Erythrocyte distribution width (RBC) [Ratio] 24.9 % High 11.5-15.0 [facility] Comment on above: Performed By: #### C ALLY, 2639-3, BMP, 2156-11, , 2776-06 ####[facility] ([id number])[address], [address], [place] [address] Hematocrit (Bld) [Volume fraction] 26.8 % Low 39-49 [facility] Comment on above: Performed By: #### C ALLY, 2639-3, BMP, 2156-, , 2776-06 ####[facility] ([id number])[address] [address] [place] [address] Hemoglobin (Bld) [Mass/Vol] 8.7 g/dL Low 13.0-17.0 [facility] Comment on above: Performed By: #### Snehal BC, 2639-3, BMP, 2156-11, , 2776-06 ####[facility] ([id number])[address] [address] [place] [address] MCH (RBC) [Entitic mass] 24.8 pg Low 27-34 [facility] Comment on above: Performed By: #### Snehal BC, 2639-3, BMP, 2156-, , 1 ####[facility] ([id number])[address] [address] MCHC (RBC) [Mass/Vol] 32.6 g/dL Normal 32-36 [facility] Comment on above: Performed By: #### Snehal CANALES, 2639-3, BMP, 2156-11, , 2776-06 ####[facility] ([id number])[address] [address] MCV (RBC) [Entitic vol] 76 fL Low 80-100 [facility] Comment on above: Performed By: #### Snehal CANALES, 2639-3, BMP, 2156-11, , 2776- ####[facility] ([id number])[address] [address] Platelet mean volume (Bld) [Entitic vol] 9.3 fL Normal 7-12 [facility] Comment on above: Performed By: #### Snehal CANALES, 2639-3, BMP, 2156-11, , 2776-06 ####[facility] ([id number])[address] [address] Platelets (Bld) [#/Vol] 184 10*3/uL Normal 150-450 [facility] Comment on above: Performed By: #### Snehal CANALES, 2639-3, BMP, 2156-11, , 2776-06 ####[facility] ([id number])[address] [address] RBC COUNT 3.53 X10E12/L Low 4.10-5.70 [facility] Comment on above: Performed By: #### Snehal CANALES, 2639-3, BMP, 2156-11, , 2776-06 ####[facility] ([id number])[address] [address] WBC (Bld) [#/Vol] 11.0 10*3/uL Normal 4.0-11.0 [facility] Comment on above: Performed By: #### C ALLY, 2639-3, BMP, 2156-11, , 1 ####[facility] ([id number])[address], [address] [place] [address] Glucose Glucometer (BldC) [M ass/Vol]on 11-09-2023 Glucose [Mass/Vol] 243 mg/dL High 65-99 [facility] Glucose [Mass/Vol] 184 mg/dL High 65-99 [facility] Glucose [Mass/Vol] 199 mg/dL High 65-99 [facility] Glucose [Mass/Vol] 218 mg/dL High 65-99 [facility] Heparin unfractionated Chrom ogenic method Qn (PPP)on 11-09-2023 ANTI XA UFH 0.15 IU/mL Low 0.30-0.70 [facility] Comment on above: Result Comment: Opti mal time for testing is 6 hrs post dosage This test is specific for monitoring patients on UFH, and is not recommended for use with other Anti-Xa medications. Performed By: #### 3 274-8 ####[facility] ([id number])[address], [address] [place] [address] MAGNESIUMon 11-09-2023 Magnesium [Mass/Vol] 2.2 mg/dL Normal 1.8-2.6 [facility] Comment on above: Performed By: #### C ALLY, 2639-3, [facility], 2156-11, , 1 ####[facility] ([id number])[address], [address] [place] [address] Myoglobin [Mass/Vol]on 11-08 SERUM MYOGLOBIN 97.7 ng/mL Normal 17.4-105.7 [facility] Comment on above: Performed By: #### 2 157-6, 2639-3 ####[facility] ([id number])[address], [address], [place] [address] SERUM MYOGLOBIN 51.7 ng/mL Normal 17.4-105.7 [facility] Comment on above: Performed By: #### C BC, 2639-3, BMP, 2156-11, , 2776-1 ####[facility] ([id number])[address], [address], [place] [address] PHOSPHORUSon 11-09-2023 Phosphate [Mass/Vol] 4.4 mg/dL Normal 2.4-4.9 [facility] Comment on above: Performed By: #### C BC, 2639-3, BMP, 2156-11, , 1 ####[facility] ([id number])[address], [address], [place] [address] BASIC METABOLIC PANLon 11-07 Anion gap [Moles/Vol] 9 mmol/L Normal 5-15 [facility] Comment on above: Performed By: #### P INR #### [facility] ([id number]) [address], [address] [place] [address] Calcium [Mass/Vol] 8.4 mg/dL Low 8.5-10.5 [facility] Comment on above: Performed By: #### P INR #### [facility] ([id number]) [address], [address] [place] [address] Chloride [Moles/Vol] 106 mmol/L Normal 98-109 [facility] Comment on above: Performed By: #### P INR #### [facility] ([id number]) [address], [address] [place] [address] CO2 [Moles/Vol] 24 mmol/L Normal 22-32 [facility] Comment on above: Performed By: #### P INR #### [facility] ([id number]) [address], [address] [place] [address] Creatinine [Mass/Vol] 1.30 mg/dL Normal 0.60-1.30 [facility] Comment on above: Result Comment: METH OD TRACEABLE TO IDMS STANDARD Performed By: #### P INR #### [facility] ([id number]) [address], [address] [place] [address] GFR/1.73 sq M.predicted among non-blacks MDRD (S/P/Bld) [Vol rate/Area] 64 mL/min/{1.73_m2} Normal >59 [facility] Comment on above: Result Comment: Reported eGFR is based on the CKD-EPI 2020 equation that does not use a race coefficient. Performed By: #### P INR #### [facility] ([id number]) [address], [address] [place] [address] Glucose [Mass/Vol] 163 mg/dL High 65-99 [facility] Comment on above: Performed By: #### P INR #### [facility] ([id number]) [address] [address] [place] [address] Potassium [Moles/Vol] 4.1 mmol/L Normal 3.5-5.0 [facility] Comment on above: Performed By: #### P INR #### [facility] ([id number]) [address], [address] [place] [address] Sodium [Moles/Vol] 139 mmol/L Normal 134-146 [facility] Comment on above: Performed By: #### P INR #### [facility] ([id number]) [address] [address] [place] [address] Urea nitrogen [Mass/Vol] 23 mg/dL Normal 5-23 [facility] Comment on above: Performed By: #### P INR #### [facility] ([id number]) [address] [address] [place] [address] Anion gap [Moles/Vol] 9 mmol/L Normal 5-15 [facility] Comment on above: Performed By: #### C ALLY, BMP #### [facility] ([id number]) [address], [address] [place] [address] Calcium [Mass/Vol] 8.8 mg/dL Normal 8.5-10.5 [facility] Comment on above: Performed By: #### C ALLY, BMP #### [facility] ([id number]) [address], [address] [place] [address] Chloride [Moles/Vol] 104 mmol/L Normal 98-109 [facility] Comment on above: Performed By: #### Snehal CANALES, BMP #### [facility] ([id number]) [address], [address] [place] [address] CO2 [Moles/Vol] 25 mmol/L Normal 22-32 [facility] Comment on above: Performed By: #### Snehal CANALES, BMP #### [facility] ([id number]) [address], [address] [place] [address] Creatinine [Mass/Vol] 1.70 mg/dL High 0.60-1.30 [facility] Comment on above: Result Comment: METH OD TRACEABLE TO IDMS STANDARD Performed By: #### C ALLY, BMP #### [facility] ([id number]) [address], [address] [address] GFR/1.73 sq M.predicted among non-blacks MDRD (S/P/Bld) [Vol rate/Area] 46 mL/min/{1.73_m2} Low >59 [facility] Comment on above: Result Comment: Reported eGFR is based on the CKD-EPI 2020 equation that does not use a race coefficient. Performed By: #### C ALLY, BMP #### [facility] ([id number]) [address], [address] [place] [address] Glucose [Mass/Vol] 111 mg/dL High 65-99 [facility] Comment on above: Performed By: #### C BC, BMP #### [facility] ([id number]) [address] [place] [address] Potassium [Moles/Vol] 3.8 mmol/L Normal 3.5-5.0 [facility] Comment on above: Performed By: #### C BC, BMP #### [facility] ([id number]) [address], [address] [place] [address] Sodium [Moles/Vol] 138 mmol/L Normal 134-146 [facility] Comment on above: Performed By: #### C BC, BMP #### [facility] ([id number]) [address], [address] [place] [address] Urea nitrogen [Mass/Vol] 28 mg/dL High 5-23 [facility] Comment on above: Performed By: #### C BC, BMP #### [facility] ([id number]) [address], [address] [place] [address] CK [Catalytic activity/Vol]o n 11-08-2023 CPK 26 U/L Normal 24-195 [facility] Comment on above: Performed By: #### P INR #### [facility] ([id number]) [address], [address] [place] [address] COMPLETE BLOOD COUNTon 11-07 Erythrocyte distribution width (RBC) [Ratio] 24.8 % High 11.5-15.0 [facility] Comment on above: Performed By: #### P INR #### [facility] ([id number]) [address], [address] [place] [address] Hematocrit (Bld) [Volume fraction] 29.3 % Low 39-49 [facility] Comment on above: Performed By: #### P INR #### [facility] ([id number]) [address], [address] [place] [address] Hemoglobin (Bld) [Mass/Vol] 9.6 g/dL Low 13.0-17.0 [facility] Comment on above: Performed By: #### P INR #### [facility] ([id number]) [address] [address] [place] [address] MCH (RBC) [Entitic mass] 24.9 pg Low 27-34 [facility] Comment on above: Performed By: #### P INR #### [facility] ([id number]) [address] [address] [place] [address] MCHC (RBC) [Mass/Vol] 32.7 g/dL Normal 32-36 [facility] Comment on above: Performed By: #### P INR #### [facility] ([id number]) [address] [address] [place] [address] MCV (RBC) [Entitic vol] 76 fL Low 80-100 [facility] Comment on above: Performed By: #### P INR #### [facility] ([id number]) [address], [address] [place] [address] Platelet mean volume (Bld) [Entitic vol] 8.7 fL Normal 7-12 [facility] Comment on above: Performed By: #### P INR #### [facility] ([id number]) [address] [address] [place] [address] Platelets (Bld) [#/Vol] 169 10*3/uL Normal 150-450 [facility] Comment on above: Performed By: #### P INR #### [facility] ([id number]) [address] [address] [place] [address] RBC COUNT 3.85 X10E12/L Low 4.10-5.70 [facility] Comment on above: Performed By: #### P INR #### [place] [facility] ([id number]) [address], [address] [place] [address] WBC (Bld) [#/Vol] 13.5 10*3/uL High 4.0-11.0 [facility] Comment on above: Performed By: #### P INR #### [facility] ([id number]) [address], [address] [place] [address] Erythrocyte distribution width (RBC) [Ratio] 25.2 % High 11.5-15.0 [facility] Comment on above: Performed By: #### C BC, BMP #### [facility] ([id number]) [address], [address] [place] [address] Hematocrit (Bld) [Volume fraction] 33.0 % Low 39-49 [facility] Comment on above: Performed By: #### C BC, BMP #### [facility] ([id number]) [address], [address] [place] [address] Hemoglobin (Bld) [Mass/Vol] 10.8 g/dL Low 13.0-17.0 [facility] Comment on above: Performed By: #### C BC, BMP #### [facility] ([id number]) [address], [address] [place] [address] MCH (RBC) [Entitic mass] 25.0 pg Low 27-34 [facility] Comment on above: Performed By: #### C BC, BMP #### [facility] ([id number]) [address], [address] [place] [address] MCHC (RBC) [Mass/Vol] 32.8 g/dL Normal 32-36 [facility] Comment on above: Performed By: #### C BC, BMP #### [facility] ([id number]) [address], [address] [place] [address] MCV (RBC) [Entitic vol] 76 fL Low 80-100 [facility] Comment on above: Performed By: #### Snehal CANALES, BMP #### [facility] ([id number]) [address], [facility] [address] [place] [address] Platelet mean volume (Bld) [Entitic vol] 8.8 fL Normal 7-12 [facility] Comment on above: Performed By: #### Snehal CANALES, BMP #### [facility] ([id number]) [address], [address] [address] Platelets (Bld) [#/Vol] 172 10*3/uL Normal 150-450 [facility] Comment on above: Performed By: #### Snehal CANALES, BMP #### [facility] ([id number]) [address] [address] RBC COUNT 4.33 X10E12/L Normal 4.10-5.70 [facility] Comment on above: Performed By: #### Snehal CANALES, BMP #### [facility] ([id number]) [address], [address] [address] WBC (Bld) [#/Vol] 9.3 10*3/uL Normal 4.0-11.0 [facility] Comment on above: Performed By: #### Snehal CANALES, BMP #### [facility] ([id number]) [address], [address] [place] [address] Glucose Glucometer (BldC) [M ass/Vol]on 11-08-2023 Glucose [Mass/Vol] 162 mg/dL High 65-99 [facility] Glucose [Mass/Vol] 96 mg/dL Normal 65-99 [facility] Glucose [Mass/Vol] 142 mg/dL High 65-99 [facility] Glucose [Mass/Vol] 114 mg/dL High 65-99 [facility] Lactate (P ekaterina) [Moles/Vol]o n 11-08-2023 LACTATE W/REFLEX 1.0 mmol/L Normal 0.4-2.0 [facility] Comment on above: Result Comment: Result did not trigger repeat Lactate, re-order if needed. Performed By: #### P INR #### [facility] ([id number]) [address], [address] [place] [address] MAGNESIUMon 11-08-2023 Magnesium [Mass/Vol] 1.7 mg/dL Low 1.8-2.6 [facility] Comment on above: Performed By: #### P INR #### [facility] ([id number]) [address], [address] [place] [address] Myoglobin [Mass/Vol]on 11-07 SERUM MYOGLOBIN 33.1 ng/mL Normal 17.4-105.7 [facility] Comment on above: Performed By: #### P INR #### [facility] ([id number]) [address], [address] [place] [address] PHOSPHORUSon 11-08-2023 Phosphate [Mass/Vol] 4.0 mg/dL Normal 2.4-4.9 [facility] Comment on above: Performed By: #### P INR #### [facility] ([id number]) [address] [address] [place] [address] PROTIME AND INRon 11-08-2023 INR Coag (PPP) [Relative time] 1.3 {INR} High 0.8-1.1 [facility] Comment on above: Performed By: #### P INR #### [facility] ([id number]) [address], [address] [place] [address] PT Coag (PPP) [Time] 14.7 s High 9.8-13.2 [facility] Comment on above: Performed By: #### P INR #### [facility] ([id number]) [address], [address] [place] [address] RAPID CARDIACon 11-08-2023 COURTNEY'S TEST Normal [facility] Comment on above: Performed By: #### A FAB5 #### [facility] ([id number]) [address] [place] [address] Base excess Calc (Bld) [Moles/Vol] 0.1 mmol/L Normal 0.0-2.0 [facility] Comment on above: Performed By: #### A FAB5 #### [facility] ([id number]) [address] [place] [address] Body temperature 98.6 [degF] Normal 37.0 [facility] Comment on above: Performed By: #### A FAB5 #### [facility] ([id number]) [address] [place] [address] Glucose [Mass/Vol] 117 mg/dL High 65-99 [facility] Comment on above: Performed By: #### A FAB5 #### [facility] ([id number]) [address] [place] [address] HCO3 (Bld) [Moles/Vol] 24.8 mmol/L Normal 22-26 [place] Comment on above: Performed By: #### A FAB5 #### [facility] ([id number]) [address] [place] [address] Hematocrit (Bld) [Volume fraction] 31 % Low 39-49 [facility] Comment on above: Performed By: #### A FAB5 #### [facility] ([id number]) [address] [place] [address] Hemoglobin (Bld) [Mass/Vol] 10.2 g/dL Low 13.0-17.0 [facility] Comment on above: Performed By: #### A FAB5 #### [facility] ([id number]) [address] [place] [address] INSP. O2 CONC. 100 % Normal [facility] Comment on above: Performed By: #### A FAB5 #### [facility] ([id number]) [address] [place] [address] IONIZED CALCIUM 4.8 mg/dL Normal 4.5-5.3 [facility] Comment on above: Performed By: #### A FAB5 #### [facility] ([id number]) [address] [place] [address] Oxygen (Bld) [Partial pressure] 167 mm[Hg] High 80-100 [facility] Comment on above: Performed By: #### A FAB5 #### [facility] ([id number]) [address] [place] [address] Oxygen saturation in Blood 100.8 % Normal >90 [facility] Comment on above: Performed By: #### A FAB5 #### [facility] ([id number]) [address] [place] [address] PCO2 39.7 MMHG Normal 35-45 [facility] Comment on above: Performed By: #### A FAB5 #### [facility] ([id number]) [address] [place] [address] pH (Bld) 7.404 [pH] Normal 7.350-7.45 0 [facility] Comment on above: Performed By: #### A FAB5 #### [facility] ([id number]) [address] [place] [address] Potassium [Moles/Vol] 3.8 mmol/L Normal 3.5-5.0 [facility] Comment on above: Performed By: #### A FAB5 #### [facility] ([id number]) [address] [place] [address] SAMPLE SITE KECIA Normal [facility] Comment on above: Performed By: #### A FAB5 #### [facility] ([id number]) [address] [place] [address] SAMPLE TYPE Arterial Normal [facility] Comment on above: Performed By: #### A FAB5 #### [facility] ([id number]) [address] [place] [address] RAPID CARDIAC W/ NAon 2023 COURTNEY'S TEST Normal [facility] Comment on above: Performed By: #### P INR #### [facility] ([id number]) [address] [place] [address] Base excess Calc (Bld) [Moles/Vol] 0.2 mmol/L Normal 0.0-2.0 [facility] Comment on above: Performed By: #### P INR #### [facility] ([id number]) [address] [place] [address] Body temperature 98.6 [degF] Normal 37.0 [facility] Comment on above: Performed By: #### P INR #### [facility] ([id number]) [address] [address] [place] [address] Glucose [Mass/Vol] 125 mg/dL High 65-99 [facility] Comment on above: Performed By: #### P INR #### [facility] ([id number]) [address] [place] [address] HCO3 (Bld) [Moles/Vol] 25.3 mmol/L Normal 22-26 [place] Comment on above: Performed By: #### P INR #### [facility] ([id number]) [address] [place] [address] Hematocrit (Bld) [Volume fraction] 31 % Low 39-49 [facility] Comment on above: Performed By: #### P INR #### [facility] ([id number]) [address] [place] [address] Hemoglobin (Bld) [Mass/Vol] 10.0 g/dL Low 13.0-17.0 [facility] Comment on above: Performed By: #### P INR #### [facility] ([id number]) [address] [place] [address] INSP. O2 CONC. 50 % Normal [facility] Comment on above: Performed By: #### P INR #### [facility] ([id number]) [address] [place] [address] IONIZED CALCIUM 4.7 mg/dL Normal 4.5-5.3 [facility] Comment on above: Performed By: #### P INR #### [facility] ([id number]) [address], [address] [place] [address] Oxygen (Bld) [Partial pressure] 131 mm[Hg] High 80-100 [facility] Comment on above: Performed By: #### P INR #### [facility] ([id number]) [address], [address] [place] [address] Oxygen saturation in Blood 99.9 % Normal >90 [facility] Comment on above: Performed By: #### P INR #### [facility] ([id number]) [address], [address] [place] [address] PCO2 42.7 MMHG Normal 35-45 [facility] Comment on above: Performed By: #### P INR #### [facility] ([id number]) [address], [address] [place] [address] pH (Bld) 7.381 [pH] Normal 7.350-7.45 0 [facility] Comment on above: Performed By: #### P INR #### [facility] ([id number]) [address], [address] [place] [address] Potassium [Moles/Vol] 3.7 mmol/L Normal 3.5-5.0 [facility] Comment on above: Performed By: #### P INR #### [facility] ([id number]) [address], [address] [place] [address] SAMPLE SITE KECIA Normal [facility] Comment on above: Performed By: #### P INR #### [facility] ([id number]) [address], [address] [place] [address] SAMPLE TYPE Arterial Normal [facility] Comment on above: Performed By: #### P INR #### [facility] ([id number]) [address], [address] [place] [address] Sodium [Moles/Vol] 139 mmol/L Normal 134-146 [facility] Comment on above: Performed By: #### P INR #### [facility] ([id number]) [address], [address] [place] [address] aPTT Coag (PPP) [Time]on aPTT Coag (Bld) [Time] 30 s Normal 26-37 [facility] Comment on above: Performed By: #### P INR #### [facility] ([id number]) [address] [place] [address] Glucose Glucometer (BldC) [M ass/Vol]on 11-07-2023 Glucose [Mass/Vol] 150 mg/dL High 65-99 [facility] Glucose [Mass/Vol] 58 mg/dL Low 65-99 [facility] POC [id number] 11-07-2023 Chloride [Moles/Vol] 98 mmol/L Normal 98-109 [facility] Comment on above: Performed By: #### I ELGBC #### [facility] ([id number]) [address] [place] [address] CO2 [Moles/Vol] 31 mmol/L Normal 22-32 [facility] Comment on above: Performed By: #### I ELGB #### [facility] ([id number]) [address] [place] [address] Creatinine [Mass/Vol] 1.9 mg/dL High 0.7-1.2 [facility] Comment on above: Result Comment: METH OD TRACEABLE TO IDMS STANDARD Performed By: #### I ELGB #### [facility] ([id number]) [address] [place] [address] GFR/1.73 sq M.predicted among non-blacks MDRD (S/P/Bld) [Vol rate/Area] 40 mL/min/{1.73_m2} Low >59 [facility] Comment on above: Result Comment: Reported eGFR is based on the CKD-EPI 2020 equation that does not use a race coefficient. Performed By: #### I ELGB #### [facility] ([id number]) [address] [place] [address] Glucose [Mass/Vol] 72 mg/dL Normal 65-99 [facility] Comment on above: Performed By: #### I ELGB #### [facility] ([id number]) [address] [place] [address] Potassium [Moles/Vol] 3.6 mmol/L Normal 3.5-5.0 [facility] Comment on above: Performed By: #### I ELGB #### [facility] ([id number]) [address] [place] [address] Sodium [Moles/Vol] 139 mmol/L Normal 134-146 [facility] Comment on above: Performed By: #### I ELGBC #### [facility] ([id number]) [address] [place] [address] Urea nitrogen [Mass/Vol] 31 mg/dL High 6-23 [facility] Comment on above: Performed By: #### I ELGBC #### [facility] ([id number]) [address] [place] [address] PROTIME AND INRon 11-07-2023 INR Coag (PPP) [Relative time] 1.3 {INR} High 0.8-1.1 [facility] Comment on above: Performed By: #### P INR #### [facility] ([id number]) [address] [place] [address] PT Coag (PPP) [Time] 14.5 s High 9.8-13.2 [facility] Comment on above: Performed By: #### P INR #### [facility] ([id number]) [address], [address] [place] [address] ECG 12 Leadon 10-24-2023 [facility] Work Phone: Consent for Treatmenton 10-04 Consent for Treatment [id number]#1.00TIFF Normal [facility] Office/Cl inic Noteon [...] lower extremity 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 Normal [facility] Comment on above: Result Comment: Elec [...] MD Transcribed by: HASEEB Technologist: HW Normal [facility] CHEMISTRYOrdered By: SYSTEM SYSTEM on 10-19-2023 [...] 370 Contrast amount in ml's: 150 Normal [facility] Consent for Treatmenton 10-03 Consent for Treatment [id number]#1.00TIFF Normal [facility] Creatinineon 10-19-2023 Creatinine [Mass/Vol] 1.6 mg/dL High 0.5-1.3 [facility] Comment on above: Performed By: #### 2 [id number] #### [facility] [address] [place] [address] Physician Orderon 10-19-2023 Physician Order [id number]#1.00TIFF Normal [facility] eGFRon 10-19-2023 eGFR 50 mL/min/1.73 m2 Low >=59 [facility] Comment on above: Order Comment: Order added by Discern Expert. Performed By: #### 1 [id number] #### [facility] [address] [place] [address] Outside Progress Noteon 10-03 Outside Progress Note [id number]#1.00TIFF Normal [facility] Physician Orderon 10-18-2023 Physician Order [id number]#1.00TIF F Normal [facility] Physician Order [id number]#1.00TIFF Normal [facility] Basophils Auto (Bld) [#/Vol] on 10-06-2023 Basophils (Bld) [#/Vol] 0.0 10 3/uL 0.0-0.1 [facility] Basophils/100 WBC Auto (Bld) on 10-06-2023 Basophils/100 WBC (Bld) 0.3 % 0.2-2.0 [facility] Eosinophils/100 WBC Auto (Bl d)on 10-06-2023 Eosinophils/100 WBC (Bld) 1.9 % 0.9-7.0 [facility] Erythrocyte distribution wid th Auto (RBC) [Ratio]on 10-06-2023 Erythrocyte distribution width (RBC) [Ratio] 19.9 % High 11.0-15.0 [facility] Estimated glomerular filtrat ion rate (GFR) non- Americanon 10-06-2023 GFR/1.73 sq M.predicted among non-blacks MDRD (S/P/Bld) [Vol rate/Area] 42 mL/min/{1.73_m2} Low >=60 [facility] Globulin Calc (S) [Mass/Vol] on 10-06-2023 Globulin (S) [Mass/Vol] 4.3 g/dL [facility] Hematocrit Auto (Bld) [Volum e fraction]on 10-06-2023 Hematocrit (Bld) [Volume fraction] 28.3 % Low 42.0-54.0 [facility] Hemoglobin [Mass/volume] in Bloodon 10-06-2023 Hemoglobin (Bld) [Mass/Vol] 8.4 g/dL Low 14.0-18.0 [facility] - Chemistry and C hemistry - challengeon 10-06-2023 Albumin [Mass/Vol] 2.1 g/dL Low 3.4-5.[address] [facility] ALP [Catalytic activity/Vol] 133 U/L High 46-116 [facility] ALT [Catalytic activity/Vol] 18 U/L 16-63 [facility] AST [Catalytic activity/Vol] 20 U/L 15-37 [facility] Bilirubin [Mass/Vol] 0.3 mg/dL 0.2-1.0 [facility] Calcium [Mass/Vol] 9.4 mg/dL 8.5-10.[address] [facility] Chloride [Moles/Vol] 103 mmol/L 98-107 [facility] CO2 [Moles/Vol] 23.7 mmol/L 21.0-32.0 [facility] Creatinine [Mass/Vol] 1.67 mg/dL High 0.70-1.30 [facility] GFR/1.73 sq M.predicted MDRD (S/P/Bld) [Vol rate/Area] 52 mL/min/{1.73_m2} Low >=60 [facility] Glucose [Mass/Vol] 91 mg/dL 74-[address] [facility] Magnesium [Mass/Vol] 1.6 mg/dL Low 1.8-2.4 [facility] Potassium [Moles/Vol] 4.8 mmol/L 3.5-5.1 [facility] Protein [Mass/Vol] 6.4 g/dL 6.4-8.[address] [facility] Sodium [Moles/Vol] 136 mmol/L 136-[address] [facility] Urea nitrogen [Mass/Vol] 29.0 mg/dL High 7.0-18.0 [facility] Urea nitrogen/Creatinine [Mass ratio] 17.4 mg/mg [facility] - Hematology and Cell countson 10-06-2023 ESR (Bld) [Velocity] mm/h High <=20 [facility] Immature granulocytes/100 WBC (Bld) 1.5 % High 0.0-0.5 [facility] Leukocytes [#/volume] correc jorge for nucleated erythrocytes in Blood by Automated counon 10-06-2023 WBC corrected for nucl RBC Auto (Bld) [#/Vol] 11.6 10 3/uL High 4.0-11.0 [facility] Lymphocytes Auto (Bld) [#/Vo l]on 10-06-2023 Lymphocytes (Bld) [#/Vol] 1.5 10 3/uL 1.2-3.8 [facility] Lymphocytes/100 WBC Auto (Bl d)on 10-06-2023 Lymphocytes/100 WBC (Bld) 12.9 % Low 20.5-60.0 [facility] MCH Auto (RBC) [Entitic mass ]on 10-06-2023 MCH (RBC) [Entitic mass] 22.5 pg Low 25.9-34.0 [facility] MCHC Auto (RBC) [Mass/Vol]on 10-06-2023 MCHC (RBC) [Mass/Vol] 29.7 g/dL Low 29.9-35.2 [facility] MCV Auto (RBC) [Entitic vol] on 10-06-2023 MCV (RBC) [Entitic vol] 75.9 fL Low 80.0-94.0 [facility] Monocytes Auto (Bld) [#/Vol] on 10-06-2023 Monocytes (Bld) [#/Vol] 1.3 10 3/uL High 0.3-0.8 [facility] Monocytes/100 WBC Auto (Bld) on 10-06-2023 Monocytes/100 WBC (Bld) 10.9 % 1.7-12.0 [facility] Neutrophils Auto (Bld) [#/Vo l]on 10-06-2023 Neutrophils (Bld) [#/Vol] 8.4 10 3/uL High 1.4-6.5 [facility] Neutrophils/100 WBC Auto (Bl d)on 10-06-2023 Neutrophils/100 WBC (Bld) 72.5 % 43.0-75.0 [facility] No Panel Informationon 10-05 Eosinophils # (Auto) 0.2 10 3/uL 0.0-0.7 [facility] Immature Granulocyte # (Auto) 0.17 10 3/uL High 0.00-0.03 [facility] Platelet mean volume Auto (B ld) [Entitic vol]on 10-06-2023 Platelet mean volume (Bld) [Entitic vol] 10.3 fL 9.5-13.5 [facility] Platelets Auto (Bld) [#/Vol] on 10-06-2023 Platelets (Bld) [#/Vol] 233 10 3/uL 150-450 [facility] RBC Auto (Bld) [#/Vol]on RBC (Bld) [#/Vol] 3.73 10 6/uL Low 4.70-6.10 [facility] Serum or plasma albumin/glob ulin mass ratioon 10-06-2023 Albumin/Globulin [Mass ratio] 0.5 {ratio} [facility] Serum or plasma anion gap de terminationon 10-06-2023 Anion gap [Moles/Vol] 14.1 [facility] Basophils Auto (Bld) [#/Vol] on 10-05-2023 Basophils (Bld) [#/Vol] 0.1 10 3/uL 0.0-0.1 [facility] Basophils/100 WBC Auto (Bld) on 10-05-2023 Basophils/100 WBC (Bld) 0.6 % 0.2-2.0 [facility] Eosinophils/100 WBC Auto (Bl d)on 10-05-2023 Eosinophils/100 WBC (Bld) 3.3 % 0.9-7.0 [facility] Erythrocyte distribution wid th Auto (RBC) [Ratio]on 10-05-2023 Erythrocyte distribution width (RBC) [Ratio] 19.6 % High 11.0-15.0 [facility] Estimated glomerular filtrat ion rate (GFR) non- Americanon 10-05-2023 GFR/1.73 sq M.predicted among non-blacks MDRD (S/P/Bld) [Vol rate/Area] 41 mL/min/{1.73_m2} Low >=60 [facility] Globulin Calc (S) [Mass/Vol] on 10-05-2023 Globulin (S) [Mass/Vol] 4.7 g/dL [facility] Hematocrit Auto (Bld) [Volum e fraction]on 10-05-2023 Hematocrit (Bld) [Volume fraction] 29.9 % Low 42.0-54.0 [facility] Hemoglobin [Mass/volume] in Bloodon 10-05-2023 Hemoglobin (Bld) [Mass/Vol] 9.0 g/dL Low 14.0-18.0 [facility] - Chemistry and C hemistry - challengeon 10-05-2023 Albumin [Mass/Vol] 2.2 g/dL Low 3.4-5.[address] [facility] ALP [Catalytic activity/Vol] 140 U/L High 46-116 [facility] ALT [Catalytic activity/Vol] 18 U/L 16-63 [facility] AST [Catalytic activity/Vol] 22 U/L 15-37 [facility] Bilirubin [Mass/Vol] 0.5 mg/dL 0.2-1.0 [facility] Calcium [Mass/Vol] 9.2 mg/dL 8.5-10.[address] [facility] Chloride [Moles/Vol] 100 mmol/L 98-107 [facility] CO2 [Moles/Vol] 22.6 mmol/L 21.0-32.0 [facility] Creatinine [Mass/Vol] 1.74 mg/dL High 0.70-1.30 [facility] GFR/1.73 sq M.predicted MDRD (S/P/Bld) [Vol rate/Area] 49 mL/min/{1.73_m2} Low >=60 [facility] Glucose [Mass/Vol] 162 mg/dL High 74-[address] [facility] Magnesium [Mass/Vol] 1.7 mg/dL Low 1.8-2.4 [facility] Potassium [Moles/Vol] 5.3 mmol/L High 3.5-5.1 [facility] Protein [Mass/Vol] 6.9 g/dL 6.4-8.[address] [facility] Sodium [Moles/Vol] 133 mmol/L Low 136-[address] [facility] Urea nitrogen [Mass/Vol] 30.0 mg/dL High 7.0-18.0 [facility] Urea nitrogen/Creatinine [Mass ratio] 17.2 mg/mg [facility] - Hematology and Cell countson 10-05-2023 ESR (Bld) [Velocity] 130 mm/h High <=20 [facility] Immature granulocytes/100 WBC (Bld) 1.3 % High 0.0-0.5 [facility] Leukocytes [#/volume] correc jorge for nucleated erythrocytes in Blood by Automated counon 10-05-2023 WBC corrected for nucl RBC Auto (Bld) [#/Vol] 12.6 10 3/uL High 4.0-11.0 [facility] Lymphocytes Auto (Bld) [#/Vo l]on 10-05-2023 Lymphocytes (Bld) [#/Vol] 1.3 10 3/uL 1.2-3.8 [facility] Lymphocytes/100 WBC Auto (Bl d)on 10-05-2023 Lymphocytes/100 WBC (Bld) 10.1 % Low 20.5-60.0 [facility] MCH Auto (RBC) [Entitic mass ]on 10-05-2023 MCH (RBC) [Entitic mass] 22.7 pg Low 25.9-34.0 [facility] MCHC Auto (RBC) [Mass/Vol]on 10-05-2023 MCHC (RBC) [Mass/Vol] 30.1 g/dL 29.9-35.2 [facility] MCV Auto (RBC) [Entitic vol] on 10-05-2023 MCV (RBC) [Entitic vol] 75.3 fL Low 80.0-94.0 [facility] Monocytes Auto (Bld) [#/Vol] on 10-05-2023 Monocytes (Bld) [#/Vol] 1.4 10 3/uL High 0.3-0.8 [facility] Monocytes/100 WBC Auto (Bld) on 10-05-2023 Monocytes/100 WBC (Bld) 10.9 % 1.7-12.0 [facility] Neutrophils Auto (Bld) [#/Vo l]on 10-05-2023 Neutrophils (Bld) [#/Vol] 9.3 10 3/uL High 1.4-6.5 [facility] Neutrophils/100 WBC Auto (Bl d)on 10-05-2023 Neutrophils/100 WBC (Bld) 73.8 % 43.0-75.0 [facility] No Panel Informationon 10-04 Eosinophils # (Auto) 0.4 10 3/uL 0.0-0.7 [facility] Immature Granulocyte # (Auto) 0.16 10 3/uL High 0.00-0.03 [facility] Platelet mean volume Auto (B ld) [Entitic vol]on 10-05-2023 Platelet mean volume (Bld) [Entitic vol] 11.3 fL 9.5-13.5 [facility] Platelets Auto (Bld) [#/Vol] on 10-05-2023 Platelets (Bld) [#/Vol] 203 10 3/uL 150-450 [facility] RBC Auto (Bld) [#/Vol]on RBC (Bld) [#/Vol] 3.97 10 6/uL Low 4.70-6.10 [facility] Serum or plasma albumin/glob ulin mass ratioon 10-05-2023 Albumin/Globulin [Mass ratio] 0.5 {ratio} [facility] Serum or plasma anion gap de terminationon 10-05-2023 Anion gap [Moles/Vol] 15.7 [facility] Basophils Auto (Bld) [#/Vol] on 10-04-2023 Basophils (Bld) [#/Vol] 0.1 10 3/uL 0.0-0.1 [facility] Basophils/100 WBC Auto (Bld) on 10-04-2023 Basophils/100 WBC (Bld) 0.5 % 0.2-2.0 [facility] Eosinophils/100 WBC Auto (Bl d)on 10-04-2023 Eosinophils/100 WBC (Bld) 3.6 % 0.9-7.0 [facility] Erythrocyte distribution wid th Auto (RBC) [Ratio]on 10-04-2023 Erythrocyte distribution width (RBC) [Ratio] 19.6 % High 11.0-15.0 [facility] Estimated glomerular filtrat ion rate (GFR) non- Americanon 10-04-2023 GFR/1.73 sq M.predicted among non-blacks MDRD (S/P/Bld) [Vol rate/Area] 44 mL/min/{1.73_m2} Low >=60 [facility] Globulin Calc (S) [Mass/Vol] on 10-04-2023 Globulin (S) [Mass/Vol] 4.3 g/dL [facility] Hematocrit Auto (Bld) [Volum e fraction]on 10-04-2023 Hematocrit (Bld) [Volume fraction] 26.8 % Low 42.0-54.0 [facility] Hemoglobin [Mass/volume] in Bloodon 10-04-2023 Hemoglobin (Bld) [Mass/Vol] 7.9 g/dL Low 14.0-18.0 [facility] - Chemistry and C hemistry - challengeon 10-04-2023 Albumin [Mass/Vol] 1.9 g/dL Low 3.4-5.[address] [facility] ALP [Catalytic activity/Vol] 135 U/L High 46-116 [facility] ALT [Catalytic activity/Vol] 16 U/L 16-63 [facility] AST [Catalytic activity/Vol] 19 U/L 15-37 [facility] Bilirubin [Mass/Vol] 0.4 mg/dL 0.2-1.0 [facility] Calcium [Mass/Vol] 7.8 mg/dL Low 8.5-10.[address] [facility] Chloride [Moles/Vol] 102 mmol/L 98-107 [facility] CO2 [Moles/Vol] 25.0 mmol/L 21.0-32.0 [facility] Creatinine [Mass/Vol] 1.61 mg/dL High 0.70-1.30 [facility] GFR/1.73 sq M.predicted MDRD (S/P/Bld) [Vol rate/Area] 54 mL/min/{1.73_m2} Low >=60 [facility] Glucose [Mass/Vol] 136 mg/dL High 74-[address] [facility] Magnesium [Mass/Vol] 1.7 mg/dL Low 1.8-2.4 [facility] Potassium [Moles/Vol] 5.1 mmol/L 3.5-5.1 [facility] Protein [Mass/Vol] 6.2 g/dL Low 6.4-8.[address] [facility] Sodium [Moles/Vol] 134 mmol/L Low 136-[address] [facility] Urea nitrogen [Mass/Vol] 25.0 mg/dL High 7.0-18.0 [facility] Urea nitrogen/Creatinine [Mass ratio] 15.5 mg/mg [facility] - Hematology and Cell countson 10-04-2023 ESR (Bld) [Velocity] 117 mm/h High <=20 [facility] Immature granulocytes/100 WBC (Bld) 0.9 % High 0.0-0.5 [facility] Leukocytes [#/volume] correc jorge for nucleated erythrocytes in Blood by Automated counon 10-04-2023 WBC corrected for nucl RBC Auto (Bld) [#/Vol] 11.5 10 3/uL High 4.0-11.0 [facility] Lymphocytes Auto (Bld) [#/Vo l]on 10-04-2023 Lymphocytes (Bld) [#/Vol] 1.3 10 3/uL 1.2-3.8 [facility] Lymphocytes/100 WBC Auto (Bl d)on 10-04-2023 Lymphocytes/100 WBC (Bld) 10.9 % Low 20.5-60.0 [facility] MCH Auto (RBC) [Entitic mass ]on 10-04-2023 MCH (RBC) [Entitic mass] 22.4 pg Low 25.9-34.0 [facility] MCHC Auto (RBC) [Mass/Vol]on 10-04-2023 MCHC (RBC) [Mass/Vol] 29.5 g/dL Low 29.9-35.2 [facility] MCV Auto (RBC) [Entitic vol] on 10-04-2023 MCV (RBC) [Entitic vol] 75.9 fL Low 80.0-94.0 [facility] Monocytes Auto (Bld) [#/Vol] on 10-04-2023 Monocytes (Bld) [#/Vol] 1.4 10 3/uL High 0.3-0.8 [facility] Monocytes/100 WBC Auto (Bld) on 10-04-2023 Monocytes/100 WBC (Bld) 12.4 % High 1.7-12.0 [facility] Neutrophils Auto (Bld) [#/Vo l]on 10-04-2023 Neutrophils (Bld) [#/Vol] 8.3 10 3/uL High 1.4-6.5 [facility] Neutrophils/100 WBC Auto (Bl d)on 10-04-2023 Neutrophils/100 WBC (Bld) 71.7 % 43.0-75.0 [facility] No Panel Informationon 10-03 Eosinophils # (Auto) 0.4 10 3/uL 0.0-0.7 [facility] Immature Granulocyte # (Auto) 0.10 10 3/uL High 0.00-0.03 [facility] Platelet mean volume Auto (B ld) [Entitic vol]on 10-04-2023 Platelet mean volume (Bld) [Entitic vol] 11.5 fL 9.5-13.5 [facility] Platelets Auto (Bld) [#/Vol] on 10-04-2023 Platelets (Bld) [#/Vol] 154 10 3/uL 150-450 [facility] RBC Auto (Bld) [#/Vol]on RBC (Bld) [#/Vol] 3.53 10 6/uL Low 4.70-6.10 [facility] Serum or plasma albumin/glob ulin mass ratioon 10-04-2023 Albumin/Globulin [Mass ratio] 0.4 {ratio} [facility] Serum or plasma anion gap de terminationon 10-04-2023 Anion gap [Moles/Vol] 12.1 mmol/L Fi [facility] Basophils Auto (Bld) [#/Vol] on 10-03-2023 Basophils (Bld) [#/Vol] 0.1 10 3/uL 0.0-0.1 [facility] Basophils/100 WBC Auto (Bld) on 10-03-2023 Basophils/100 WBC (Bld) 0.7 % 0.2-2.0 [facility] Eosinophils/100 WBC Auto (Bl d)on 10-03-2023 Eosinophils/100 WBC (Bld) 2.7 % 0.9-7.0 [facility] Erythrocyte distribution wid th Auto (RBC) [Ratio]on 10-03-2023 Erythrocyte distribution width (RBC) [Ratio] 19.2 % High 11.0-15.0 [facility] Estimated glomerular filtrat ion rate (GFR) non- Americanon 10-03-2023 GFR/1.73 sq M.predicted among non-blacks MDRD (S/P/Bld) [Vol rate/Area] 46 mL/min/{1.73_m2} Low >=60 [facility] Globulin Calc (S) [Mass/Vol] on 10-03-2023 Globulin (S) [Mass/Vol] 4.1 g/dL [facility] Hematocrit Auto (Bld) [Volum e fraction]on 10-03-2023 Hematocrit (Bld) [Volume fraction] 26.4 % Low 42.0-54.0 [facility] Hemoglobin [Mass/volume] in Bloodon 10-03-2023 Hemoglobin (Bld) [Mass/Vol] 8.1 g/dL Low 14.0-18.0 [facility] Laboratory - Chemistry and C hemistry - challengeon 10-03-2023 Albumin [Mass/Vol] 1.9 g/dL Low 3.4-5.[address] [facility] ALP [Catalytic activity/Vol] 140 U/L High 46-116 [facility] ALT [Catalytic activity/Vol] 17 U/L 16-63 [facility] AST [Catalytic activity/Vol] 21 U/L 15-37 [facility] Bilirubin [Mass/Vol] 0.3 mg/dL 0.2-1.0 [facility] Calcium [Mass/Vol] 6.7 mg/dL Low 8.5-10.[address] [facility] Chloride [Moles/Vol] 101 mmol/L 98-107 [facility] CO2 [Moles/Vol] 23.9 mmol/L 21.0-32.0 [facility] Creatinine [Mass/Vol] 1.57 mg/dL High 0.70-1.30 [facility] GFR/1.73 sq M.predicted MDRD (S/P/Bld) [Vol rate/Area] 55 mL/min/{1.73_m2} Low >=60 [facility] Glucose [Mass/Vol] 142 mg/dL High 74-[address] [facility] Magnesium [Mass/Vol] 1.3 mg/dL Low 1.8-2.4 [facility] Potassium [Moles/Vol] 4.8 mmol/L 3.5-5.1 [facility] Protein [Mass/Vol] 6.0 g/dL Low 6.4-8.[address] [facility] Sodium [Moles/Vol] 134 mmol/L Low 136-[address] [facility] Urea nitrogen [Mass/Vol] 23.0 mg/dL High 7.0-18.0 [facility] Urea nitrogen/Creatinine [Mass ratio] 14.6 mg/mg [facility] Laboratory - Hematology and Cell countson 10-03-2023 ESR (Bld) [Velocity] mm/h High <=20 [facility] Immature granulocytes/100 WBC (Bld) 1.0 % High 0.0-0.5 [facility] Leukocytes [#/volume] correc jorge for nucleated erythrocytes in Blood by Automated counon 10-03-2023 WBC corrected for nucl RBC Auto (Bld) [#/Vol] 11.6 10 3/uL High 4.0-11.0 [facility] Lymphocytes Auto (Bld) [#/Vo l]on 10-03-2023 Lymphocytes (Bld) [#/Vol] 1.4 10 3/uL 1.2-3.8 [facility] Lymphocytes/100 WBC Auto (Bl d)on 10-03-2023 Lymphocytes/100 WBC (Bld) 12.1 % Low 20.5-60.0 [facility] MCH Auto (RBC) [Entitic mass ]on 10-03-2023 MCH (RBC) [Entitic mass] 23.2 pg Low 25.9-34.0 [facility] MCHC Auto (RBC) [Mass/Vol]on 10-03-2023 MCHC (RBC) [Mass/Vol] 30.7 g/dL 29.9-35.2 [facility] MCV Auto (RBC) [Entitic vol] on 10-03-2023 MCV (RBC) [Entitic vol] 75.6 fL Low 80.0-94.0 [facility] Monocytes Auto (Bld) [#/Vol] on 10-03-2023 Monocytes (Bld) [#/Vol] 1.3 10 3/uL High 0.3-0.8 [facility] Monocytes/100 WBC Auto (Bld) on 10-03-2023 Monocytes/100 WBC (Bld) 10.8 % 1.7-12.0 [facility] Neutrophils Auto (Bld) [#/Vo l]on 10-03-2023 Neutrophils (Bld) [#/Vol] 8.5 10 3/uL High 1.4-6.5 [facility] Neutrophils/100 WBC Auto (Bl d)on 10-03-2023 Neutrophils/100 WBC (Bld) 72.7 % 43.0-75.0 [facility] No Panel Informationon 10-02 Eosinophils # (Auto) 0.3 10 3/uL 0.0-0.7 [facility] Immature Granulocyte # (Auto) 0.12 10 3/uL High 0.00-0.03 [facility] Platelet mean volume Auto (B ld) [Entitic vol]on 10-03-2023 Platelet mean volume (Bld) [Entitic vol] 11.3 fL 9.5-13.5 [facility] Platelets Auto (Bld) [#/Vol] on 10-03-2023 Platelets (Bld) [#/Vol] 141 10 3/uL Low 150-450 [facility] RBC Auto (Bld) [#/Vol]on RBC (Bld) [#/Vol] 3.49 10 6/uL Low 4.70-6.10 [facility] Serum or plasma albumin/glob ulin mass ratioon 10-03-2023 Albumin/Globulin [Mass ratio] 0.5 {ratio} [facility] Serum or plasma anion gap de terminationon 10-03-2023 Anion gap [Moles/Vol] 13.9 mmol/[facility] Basophils Auto (Bld) [#/Vol] on 10-02-2023 Basophils (Bld) [#/Vol] 0.0 10 3/uL 0.0-0.1 [facility] Basophils/100 WBC Auto (Bld) on 10-02-2023 Basophils/100 WBC (Bld) 0.4 % 0.2-2.0 [facility] Eosinophils/100 WBC Auto (Bl d)on 10-02-2023 Eosinophils/100 WBC (Bld) 2.2 % 0.9-7.0 [facility] Erythrocyte distribution wid th Auto (RBC) [Ratio]on 10-02-2023 Erythrocyte distribution width (RBC) [Ratio] 19.3 % High 11.0-15.0 [facility] Estimated glomerular filtrat ion rate (GFR) non- Americanon 10-02-2023 GFR/1.73 sq M.predicted among non-blacks MDRD (S/P/Bld) [Vol rate/Area] 41 mL/min/{1.73_m2} Low >=60 [facility] Globulin Calc (S) [Mass/Vol] on 10-02-2023 Globulin (S) [Mass/Vol] 4.2 g/dL [facility] Hematocrit Auto (Bld) [Volum e fraction]on 10-02-2023 Hematocrit (Bld) [Volume fraction] 26.1 % Low 42.0-54.0 [facility] Hemoglobin [Mass/volume] in Bloodon 10-02-2023 Hemoglobin (Bld) [Mass/Vol] 7.8 g/dL Low 14.0-18.0 [facility] Laboratory - Chemistry and C hemistry - challengeon 10-02-2023 Albumin [Mass/Vol] 2.1 g/dL Low 3.4-5.[address] [facility] ALP [Catalytic activity/Vol] 131 U/L High 46-116 [facility] ALT [Catalytic activity/Vol] 17 U/L 16-63 [facility] AST [Catalytic activity/Vol] 13 U/L Low 15-37 [facility] Bilirubin [Mass/Vol] 0.3 mg/dL 0.2-1.0 [facility] Calcium [Mass/Vol] 6.6 mg/dL Low 8.5-10.[address] [facility] Chloride [Moles/Vol] 105 mmol/L 98-107 [facility] CO2 [Moles/Vol] 24.3 mmol/L 21.0-32.0 [facility] Creatinine [Mass/Vol] 1.72 mg/dL High 0.70-1.30 [facility] GFR/1.73 sq M.predicted MDRD (S/P/Bld) [Vol rate/Area] 50 mL/min/{1.73_m2} Low >=60 [facility] Glucose [Mass/Vol] 156 mg/dL High 74-[address] [facility] Magnesium [Mass/Vol] 1.5 mg/dL Low 1.8-2.4 [facility] Potassium [Moles/Vol] 4.0 mmol/L 3.5-5.1 [facility] Protein [Mass/Vol] 6.3 g/dL Low 6.4-8.[address] [facility] Sodium [Moles/Vol] 139 mmol/L 136-[address] [facility] Urea nitrogen [Mass/Vol] 27.0 mg/dL High 7.0-18.0 [facility] Urea nitrogen/Creatinine [Mass ratio] 15.7 mg/mg [facility] Laboratory - Hematology and Cell countson 10-02-2023 Immature granulocytes/100 WBC (Bld) 0.4 % 0.0-0.5 [facility] ESR (Bld) [Velocity] 110 mm/h High <=20 [facility] Laboratory - Microbiology an d Antimicrobial susceptibilityOrdered By: Truman Bryant on 10-02-2023 Microscopic observation Gram stain Nom (Unsp spec) [facility] Leukocytes [#/volume] correc jorge for nucleated erythrocytes in Blood by Automated counon 10-02-2023 WBC corrected for nucl RBC Auto (Bld) [#/Vol] 8.5 10 3/uL 4.0-11.0 [facility] Lymphocytes Auto (Bld) [#/Vo l]on 10-02-2023 Lymphocytes (Bld) [#/Vol] 1.5 10 3/uL 1.2-3.8 [facility] Lymphocytes/100 WBC Auto (Bl d)on 10-02-2023 Lymphocytes/100 WBC (Bld) 17.3 % Low 20.5-60.0 [facility] MCH Auto (RBC) [Entitic mass ]on 10-02-2023 MCH (RBC) [Entitic mass] 22.5 pg Low 25.9-34.0 [facility] MCHC Auto (RBC) [Mass/Vol]on 10-02-2023 MCHC (RBC) [Mass/Vol] 29.9 g/dL 29.9-35.2 [facility] MCV Auto (RBC) [Entitic vol] on 10-02-2023 MCV (RBC) [Entitic vol] 75.2 fL Low 80.0-94.0 [facility] Monocytes Auto (Bld) [#/Vol] on 10-02-2023 Monocytes (Bld) [#/Vol] 0.8 10 3/uL 0.3-0.8 [facility] Monocytes/100 WBC Auto (Bld) on 10-02-2023 Monocytes/100 WBC (Bld) 9.1 % 1.7-12.0 [facility] Neutrophils Auto (Bld) [#/Vo l]on 10-02-2023 Neutrophils (Bld) [#/Vol] 6.0 10 3/uL 1.4-6.5 [facility] Neutrophils/100 WBC Auto (Bl d)on 10-02-2023 Neutrophils/100 WBC (Bld) 70.6 % 43.0-75.0 [facility] No Panel Informationon 10-01 Eosinophils # (Auto) 0.2 10 3/uL 0.0-0.7 [facility] Immature Granulocyte # (Auto) 0.03 10 3/uL 0.00-0.03 [facility] Miscellaneous Test Comment See comment [facility] Comment on above: Specimen Source: JONO TRT - Foot Right - Foot Rt - 604.000 No Panel InformationOrdered By: Truman Bryant on 10-02-2023 Tissue Culture [facility] No Panel InformationOrdered By: Paula Soto on 10-02-2023 Acid Fast Smear [facility] AFB Specimen Processing [facility] Platelet mean volume Auto (B ld) [Entitic vol]on 10-02-2023 Platelet mean volume (Bld) [Entitic vol] 10.6 fL 9.5-13.5 [facility] Platelets Auto (Bld) [#/Vol] on 10-02-2023 Platelets (Bld) [#/Vol] 142 10 3/uL Low 150-450 [facility] RBC Auto (Bld) [#/Vol]on RBC (Bld) [#/Vol] 3.47 10 6/uL Low 4.70-6.10 [facility] Serum or plasma albumin/glob ulin mass ratioon 10-02-2023 Albumin/Globulin [Mass ratio] 0.5 {ratio} [facility] Serum or plasma anion gap de terminationon 10-02-2023 Anion gap [Moles/Vol] 13.7 [facility] Basophils Auto (Bld) [#/Vol] on 10-01-2023 Basophils (Bld) [#/Vol] 0.0 10 3/uL 0.0-0.1 [facility] Basophils/100 WBC Auto (Bld) on 10-01-2023 Basophils/100 WBC (Bld) 0.4 % 0.2-2.0 [facility] Eosinophils/100 WBC Auto (Bl d)on 10-01-2023 Eosinophils/100 WBC (Bld) 1.7 % 0.9-7.0 [facility] Erythrocyte distribution wid th Auto (RBC) [Ratio]on 10-01-2023 Erythrocyte distribution width (RBC) [Ratio] 18.5 % High 11.0-15.0 [facility] Estimated glomerular filtrat ion rate (GFR) non- Americanon 10-01-2023 GFR/1.73 sq M.predicted among non-blacks MDRD (S/P/Bld) [Vol rate/Area] 27 mL/min/{1.73_m2} Low >=60 [facility] Globulin Calc (S) [Mass/Vol] on 10-01-2023 Globulin (S) [Mass/Vol] 4.0 g/dL [facility] Hematocrit Auto (Bld) [Volum e fraction]on 10-01-2023 Hematocrit (Bld) [Volume fraction] 26.5 % Low 42.0-54.0 [facility] Hemoglobin [Mass/volume] in Bloodon 10-01-2023 Hemoglobin (Bld) [Mass/Vol] 8.0 g/dL Low 14.0-18.0 [facility] Laboratory - Chemistry and C hemistry - challengeon 10-01-2023 Lactate [Moles/Vol] 1.8 mmol/L 0.4-2.0 [facility] Albumin [Mass/Vol] 1.9 g/dL Low 3.4-5.[address] [facility] ALP [Catalytic activity/Vol] 113 U/L 46-116 [facility] ALT [Catalytic activity/Vol] 17 U/L 16-63 [facility] AST [Catalytic activity/Vol] 14 U/L Low 15-37 [facility] Bilirubin [Mass/Vol] 0.3 mg/dL 0.2-1.0 [facility] Calcium [Mass/Vol] 5.7 mg/dL Low 8.5-10.[address] [facility] Comment on above: RESULTS CALLED TO Patricio Tsang)@BY Marybel Hawkins MLT at 0619 Chloride [Moles/Vol] 102 mmol/L 98-107 [facility] CO2 [Moles/Vol] 20.4 mmol/L Low 21.0-32.0 [facility] Creatinine [Mass/Vol] 2.46 mg/dL High 0.70-1.30 [facility] GFR/1.73 sq M.predicted MDRD (S/P/Bld) [Vol rate/Area] 33 mL/min/{1.73_m2} Low >=60 [facility] Glucose [Mass/Vol] 67 mg/dL Low 74-[address] [facility] Magnesium [Mass/Vol] 0.8 mg/dL Low 1.8-2.4 [facility] Comment on above: RESULTS CALLED TO Patrciio CORREA)@BY [address] at 0601 Potassium [Moles/Vol] 3.1 mmol/L Low 3.5-5.1 [facility] Protein [Mass/Vol] 5.9 g/dL Low 6.4-8.[address] [facility] Sodium [Moles/Vol] 138 mmol/L 136-[address] [facility] Urea nitrogen [Mass/Vol] 28.0 mg/dL High 7.0-18.0 [facility] Urea nitrogen/Creatinine [Mass ratio] 11.4 mg/mg [facility] Laboratory - Hematology and Cell countson 10-01-2023 ESR (Bld) [Velocity] 96 mm/h High <=20 [facility] Immature granulocytes/100 WBC (Bld) 0.6 % High 0.0-0.5 [facility] Leukocytes [#/volume] correc jorge for nucleated erythrocytes in Blood by Automated counon 10-01-2023 WBC corrected for nucl RBC Auto (Bld) [#/Vol] 10.0 10 3/uL 4.0-11.0 [facility] Lymphocytes Auto (Bld) [#/Vo l]on 10-01-2023 Lymphocytes (Bld) [#/Vol] 1.3 10 3/uL 1.2-3.8 [facility] Lymphocytes/100 WBC Auto (Bl d)on 10-01-2023 Lymphocytes/100 WBC (Bld) 12.8 % Low 20.5-60.0 [facility] MCH Auto (RBC) [Entitic mass ]on 10-01-2023 MCH (RBC) [Entitic mass] 22.4 pg Low 25.9-34.0 [facility] MCHC Auto (RBC) [Mass/Vol]on 10-01-2023 MCHC (RBC) [Mass/Vol] 30.2 g/dL 29.9-35.2 [facility] MCV Auto (RBC) [Entitic vol] on 10-01-2023 MCV (RBC) [Entitic vol] 74.2 fL Low 80.0-94.0 [facility] Monocytes Auto (Bld) [#/Vol] on 10-01-2023 Monocytes (Bld) [#/Vol] 0.7 10 3/uL 0.3-0.8 [facility] Monocytes/100 WBC Auto (Bld) on 10-01-2023 Monocytes/100 WBC (Bld) 6.9 % 1.7-12.0 [facility] Neutrophils Auto (Bld) [#/Vo l]on 10-01-2023 Neutrophils (Bld) [#/Vol] 7.8 10 3/uL High 1.4-6.5 [facility] Neutrophils/100 WBC Auto (Bl d)on 10-01-2023 Neutrophils/100 WBC (Bld) 77.6 % High 43.0-75.0 [facility] No Panel Informationon 09-30 C-Reactive Protein, Quantitative 10.58 mg/dL High <=0.50 [facility] Eosinophils # (Auto) 0.2 10 3/uL 0.0-0.7 [facility] Immature Granulocyte # (Auto) 0.06 10 3/uL High 0.00-0.03 [facility] Troponin I High Sensitivity 8.3 pg/mL 4.0-76.1 [facility] Comment on above: CUT-OFF POINTS HAVE BEEN [...] Partial Pressure CO2 30.4 mm[Hg] Low 40.0-52.0 [facility] Venous Blood pH 7.421 7.330-7.43 0 [facility] Platelet mean volume Auto (B ld) [Entitic vol]on 10-01-2023 Platelet mean volume (Bld) [Entitic vol] 11.2 fL 9.5-13.5 [facility] Platelets Auto (Bld) [#/Vol] on 10-01-2023 Platelets (Bld) [#/Vol] 164 10 3/uL 150-450 [facility] RBC Auto (Bld) [#/Vol]on RBC (Bld) [#/Vol] 3.57 10 6/uL Low 4.70-6.10 [facility] Serum or plasma albumin/glob ulin mass ratioon 10-01-2023 Albumin/Globulin [Mass ratio] 0.5 {ratio} [facility] Serum or plasma anion gap de terminationon 10-01-2023 Anion gap [Moles/Vol] 18.7 mmol/L [facility] Automated epithelial cells c ount in urine sediment (number/area)on 09-30-2023 Epithelial cells Auto (Urine sed) [#/Area] NONE SEEN #/LPF NONE/RARE [facility] Automated leukocytes count i n urine sediment (number/area)on 09-30-2023 WBC Auto (Urine sed) [#/Area] NONE SEEN #/HPF 0-2 [facility] Automated urine specific gra vity by refractometryon 09-30-2023 Specific gravity Refractometry automated (U) [Rel density] <=1.005 Abnormal 1.005-1.02 5 [facility] Basophils Auto (Bld) [#/Vol] on 09-30-2023 Basophils (Bld) [#/Vol] 0.1 10 3/uL 0.0-0.1 [facility] Basophils/100 WBC Auto (Bld) on 09-30-2023 Basophils/100 WBC (Bld) 0.4 % 0.2-2.0 [facility] Bilirubin Auto test strip (U ) [Mass/Vol]on 09-30-2023 Bilirubin (U) [Mass/Vol] Negative NEGATIVE [facility] Casts typing in urine sedime nt by light microscopyon 09-30-2023 Casts LM Nom (Urine sed) NONE SEEN #/LPF NONE SEEN [facility] Color Auto (U)on 09-30-2023 Color (U) LT. YELLOW YELLOW [facility] Eosinophils/100 WBC Auto (Bl d)on 09-30-2023 Eosinophils/100 WBC (Bld) 1.4 % 0.9-7.0 [facility] Erythrocyte distribution wid th Auto (RBC) [Ratio]on 09-30-2023 Erythrocyte distribution width (RBC) [Ratio] 19.0 % High 11.0-15.0 [facility] Estimated glomerular filtrat ion rate (GFR) non- Americanon 09-30-2023 GFR/1.73 sq M.predicted among non-blacks MDRD (S/P/Bld) [Vol rate/Area] 19 mL/min/{1.73_m2} Low >=60 [facility] Globulin Calc (S) [Mass/Vol] on 09-30-2023 Globulin (S) [Mass/Vol] 4.8 g/dL [facility] Hematocrit Auto (Bld) [Volum e fraction]on 09-30-2023 Hematocrit (Bld) [Volume fraction] 32.9 % Low 42.0-54.0 [facility] Hemoglobin [Mass/volume] in Bloodon 09-30-2023 Hemoglobin (Bld) [Mass/Vol] 10.0 g/dL Low 14.0-18.0 [facility] INR in Platelet poor plasma by Coagulation assayon 09-30-2023 INR Coag (PPP) [Relative time] 1.23 {INR} [facility] Comment on above: DESIRED INR:2.0-3.0 CONDITIONS NOT LISTED BELOW2.5-3.5 FOR PROSTHETIC HEART VALVE REPLACEMENT2.5-3.5 RECURRENT THROMBOSIS Ketones Auto test strip (U) [Mass/Vol]on 09-30-2023 Ketones (U) [Mass/Vol] Negative NEGATIVE Fi [facility] Laboratory - Chemistry and C hemistry - challengeon 09-30-2023 Lactate [Moles/Vol] 4.2 mmol/L High 0.4-2.0 [facility] Comment on above: RESULTS CALLED TO Patricio Genao (RN)@BY [address] Way at 2312 Albumin [Mass/Vol] 2.4 g/dL Low 3.4-5.[address] [facility] ALP [Catalytic activity/Vol] 145 U/L High 46-116 [facility] ALT [Catalytic activity/Vol] 17 U/L 16-63 [facility] AST [Catalytic activity/Vol] 21 U/L 15-37 [facility] Bilirubin [Mass/Vol] 0.4 mg/dL 0.2-1.0 [facility] Calcium [Mass/Vol] 5.8 mg/dL Low 8.5-10.[address] [facility] Comment on above: RESULTS CALLED TO AM Bartolome CASTANON @BY Verona Hanson at 1645 Chloride [Moles/Vol] 97 mmol/L Low 98-107 [facility] CO2 [Moles/Vol] 18.3 mmol/L Low 21.0-32.0 [facility] Creatinine [Mass/Vol] 3.43 mg/dL High 0.70-1.30 [facility] GFR/1.73 sq M.predicted MDRD (S/P/Bld) [Vol rate/Area] 22 mL/min/{1.73_m2} Low >=60 [facility] Glucose [Mass/Vol] 208 mg/dL High 74-[address] [facility] Magnesium [Mass/Vol] 0.5 mg/dL Low 1.8-2.4 [facility] Comment on above: RESULTS CALLED TO Am bartolome Castanon @BY Marybel Hawkins, [employer]PLIC[employer] HELPER [phone] Natriuretic peptide B (Bld) [Mass/Vol] 611.0 pg/mL <=900.0 [facility] Potassium [Moles/Vol] 3.9 mmol/L 3.5-5.1 [facility] Protein [Mass/Vol] 7.2 g/dL 6.4-8.[address] [facility] Sodium [Moles/Vol] 137 mmol/L 136-[address] [facility] Urea nitrogen [Mass/Vol] 34.0 mg/dL High 7.0-18.0 [facility] Urea nitrogen/Creatinine [Mass ratio] 9.9 mg/mg [facility] Laboratory - Hematology and Cell countson 09-30-2023 ESR (Bld) [Velocity] 130 mm/h High <=20 [facility] Immature granulocytes/100 WBC (Bld) 0.6 % High 0.0-0.5 [facility] Leukocytes [#/volume] correc jorge for nucleated erythrocytes in Blood by Automated counon 09-30-2023 WBC corrected for nucl RBC Auto (Bld) [#/Vol] 13.9 10 3/uL High 4.0-11.0 [facility] Lymphocytes Auto (Bld) [#/Vo l]on 09-30-2023 Lymphocytes (Bld) [#/Vol] 1.4 10 3/uL 1.2-3.8 [facility] Lymphocytes/100 WBC Auto (Bl d)on 09-30-2023 Lymphocytes/100 WBC (Bld) 10.1 % Low 20.5-60.0 [facility] MCH Auto (RBC) [Entitic mass ]on 09-30-2023 MCH (RBC) [Entitic mass] 22.7 pg Low 25.9-34.0 [facility] MCHC Auto (RBC) [Mass/Vol]on 09-30-2023 MCHC (RBC) [Mass/Vol] 30.4 g/dL 29.9-35.2 [facility] MCV Auto (RBC) [Entitic vol] on 09-30-2023 MCV (RBC) [Entitic vol] 74.6 fL Low 80.0-94.0 [facility] Monocytes Auto (Bld) [#/Vol] on 09-30-2023 Monocytes (Bld) [#/Vol] 0.9 10 3/uL High 0.3-0.8 [facility] Monocytes/100 WBC Auto (Bld) on 09-30-2023 Monocytes/100 WBC (Bld) 6.7 % 1.7-12.0 [facility] Mucus LM Ql (Urine sed)on Mucus Ql (Urine sed) NONE SEEN NONE SEEN [facility] Neutrophils Auto (Bld) [#/Vo l]on 09-30-2023 Neutrophils (Bld) [#/Vol] 11.2 10 3/uL High 1.4-6.5 [facility] Neutrophils/100 WBC Auto (Bl d)on 09-30-2023 Neutrophils/100 WBC (Bld) 80.8 % High 43.0-75.0 [facility] No Panel Informationon 09-29 Troponin I High Sensitivity 7.9 pg/mL 4.0-76.1 [facility] Comment on above: CUT-OFF POINTS HAVE BEEN [...] Partial Pressure CO2 29.6 mm[Hg] Low 40.0-52.0 [facility] Venous Blood pH 7.405 7.330-7.43 0 [facility] Urine Culture Reflexed NO Fi [facility] C-Reactive Protein, Quantitative 14.76 mg/dL High <=0.50 [facility] Eosinophils # (Auto) 0.2 10 3/uL 0.0-0.7 [facility] Immature Granulocyte # (Auto) 0.09 10 3/uL High 0.00-0.03 [facility] No Panel InformationOrdered By: Chandrika Castanon on 09-30-2023 Blood Culture 2 [facility] Wound Culture [facility] Blood Culture 1 [facility] Platelet mean volume Auto (B ld) [Entitic vol]on 09-30-2023 Platelet mean volume (Bld) [Entitic vol] 10.9 fL 9.5-13.5 [facility] Platelets Auto (Bld) [#/Vol] on 09-30-2023 Platelets (Bld) [#/Vol] 227 10 3/uL 150-450 [facility] Protein Auto test strip (U) [Mass/Vol]on 09-30-2023 Protein (U) [Mass/Vol] Negative NEG/TRACE [facility] Prothrombin time (PT)on 09-04 PT Coag (PPP) [Time] 12.9 s High 9.0-11.6 [facility] RBC Auto (Bld) [#/Vol]on RBC (Bld) [#/Vol] 4.41 10 6/uL Low 4.70-6.10 [facility] Serum or plasma albumin/glob ulin mass ratioon 09-30-2023 Albumin/Globulin [Mass ratio] 0.5 {ratio} [facility] Serum or plasma anion gap de terminationon 09-30-2023 Anion gap [Moles/Vol] 25.6 mmol/L Fi [facility] Specific gravity Auto test s trip (U) [Rel density]on 09-30-2023 Specific gravity (U) [Rel density] CLEAR CLEAR [facility] Urine bacteria detection by automated methodon 09-30-2023 Bacteria Auto Ql (U) NONE SEEN #/HPF NONE SEEN [facility] Urine glucose measurement by test strip (mass/volume)on 09-30-2023 Glucose Test strip (U) [Mass/Vol] 500 mg/dL Abnormal NEGATIVE [facility] Urine hemoglobin detection b y automated test stripon 09-30-2023 Hemoglobin Auto test strip Ql (U) TRACE-I NEGATIVE [facility] Urine nitrite detection by a utomated test stripon 09-30-2023 Nitrite Auto test strip Ql (U) Negative NEGATIVE [facility] Urine sediment crystal ident ification by light microscopyon 09-30-2023 Crystals LM Nom (Urine sed) None Seen #/HPF None Seen [facility] Urine sediment leukocyte cou nt by microscopy (number/high power field)on 09-30-2023 WBC LM.HPF (Urine sed) [#/Area] NONE SEEN #/HPF NONE SEEN [facility] Urobilinogen Auto test strip (U) [Mass/Vol]on 09-30-2023 Urobilinogen Qn (U) 0.2 {Brendan'U}/dL 0.2-1.0 [facility] pH Auto test strip (U)on pH (U) 5.5 [pH] 5.0-9.0 [facility] Laboratory - Microbiology an d Antimicrobial susceptibilityOrdered By: Teresa Lynch on 09-21-2023 Microscopic observation Gram stain Nom (Unsp spec) [facility] Activated partial thrombopla stin time (aPTT) in platelet poor plasma by coagulation aon 09-18-2023 aPTT Coag (PPP) [Time] 32.0 s 22.3-36.2 [facility] Basophils Auto (Bld) [#/Vol] on 09-18-2023 Basophils (Bld) [#/Vol] 0.1 10 3/uL 0.0-0.1 [facility] Basophils/100 WBC Auto (Bld) on 09-18-2023 Basophils/100 WBC (Bld) 0.9 % 0.2-2.0 [facility] Eosinophils/100 WBC Auto (Bl d)on 09-18-2023 Eosinophils/100 WBC (Bld) 2.3 % 0.9-7.0 [facility] Erythrocyte distribution wid th Auto (RBC) [Ratio]on 09-18-2023 Erythrocyte distribution width (RBC) [Ratio] 18.8 % High 11.0-15.0 [facility] Estimated glomerular filtrat ion rate (GFR) non- Americanon 09-18-2023 GFR/1.73 sq M.predicted among non-blacks MDRD (S/P/Bld) [Vol rate/Area] 27 mL/min/{1.73_m2} Low >=60 [facility] Hematocrit Auto (Bld) [Volum e fraction]on 09-18-2023 Hematocrit (Bld) [Volume fraction] 35.0 % Low 42.0-54.0 [facility] Hemoglobin [Mass/volume] in Bloodon 09-18-2023 Hemoglobin (Bld) [Mass/Vol] 10.3 g/dL Low 14.0-18.0 [facility] INR in Platelet poor plasma by Coagulation assayon 09-18-2023 INR Coag (PPP) [Relative time] 1.08 {INR} [facility] Comment on above: DESIRED INR:2.0-3.0 CONDITIONS NOT LISTED BELOW2.5-3.5 FOR PROSTHETIC HEART VALVE REPLACEMENT2.5-3.5 RECURRENT THROMBOSIS Laboratory - Chemistry and C hemistry - challengeon 09-18-2023 Calcium [Mass/Vol] 8.9 mg/dL 8.5-10.[address] [facility] Chloride [Moles/Vol] 97 mmol/L Low 98-107 [facility] CO2 [Moles/Vol] 28.2 mmol/L 21.0-32.0 [facility] Creatinine [Mass/Vol] 2.47 mg/dL High 0.70-1.30 [facility] GFR/1.73 sq M.predicted MDRD (S/P/Bld) [Vol rate/Area] 33 mL/min/{1.73_m2} Low >=60 [facility] Glucose [Mass/Vol] 200 mg/dL High 74-[address] [facility] Potassium [Moles/Vol] 3.7 mmol/L 3.5-5.1 [facility] Sodium [Moles/Vol] 137 mmol/L 136-[address] [facility] Urea nitrogen [Mass/Vol] 23.0 mg/dL High 7.0-18.0 [facility] Urea nitrogen/Creatinine [Mass ratio] 9.3 mg/mg [facility] Laboratory - Hematology and Cell countson 09-18-2023 Immature granulocytes/100 WBC (Bld) 0.6 % High 0.0-0.5 [facility] Leukocytes [#/volume] correc jorge for nucleated erythrocytes in Blood by Automated counon 09-18-2023 WBC corrected for nucl RBC Auto (Bld) [#/Vol] 12.4 10 3/uL High 4.0-11.0 [facility] Lymphocytes Auto (Bld) [#/Vo l]on 09-18-2023 Lymphocytes (Bld) [#/Vol] 2.4 10 3/uL 1.2-3.8 [facility] Lymphocytes/100 WBC Auto (Bl d)on 09-18-2023 Lymphocytes/100 WBC (Bld) 19.6 % Low 20.5-60.0 [facility] MCH Auto (RBC) [Entitic mass ]on 09-18-2023 MCH (RBC) [Entitic mass] 22.2 pg Low 25.9-34.0 [facility] MCHC Auto (RBC) [Mass/Vol]on 09-18-2023 MCHC (RBC) [Mass/Vol] 29.4 g/dL Low 29.9-35.2 [facility] MCV Auto (RBC) [Entitic vol] on 09-18-2023 MCV (RBC) [Entitic vol] 75.3 fL Low 80.0-94.0 [facility] Monocytes Auto (Bld) [#/Vol] on 09-18-2023 Monocytes (Bld) [#/Vol] 1.2 10 3/uL High 0.3-0.8 [facility] Monocytes/100 WBC Auto (Bld) on 09-18-2023 Monocytes/100 WBC (Bld) 10.0 % 1.7-12.0 [facility] Neutrophils Auto (Bld) [#/Vo l]on 09-18-2023 Neutrophils (Bld) [#/Vol] 8.2 10 3/uL High 1.4-6.5 [facility] Neutrophils/100 WBC Auto (Bl d)on 09-18-2023 Neutrophils/100 WBC (Bld) 66.6 % 43.0-75.0 [facility] No Panel Informationon 09-17 Eosinophils # (Auto) 0.3 10 3/uL 0.0-0.7 [facility] Immature Granulocyte # (Auto) 0.07 10 3/uL High 0.00-0.03 [facility] Platelet mean volume Auto (B ld) [Entitic vol]on 09-18-2023 Platelet mean volume (Bld) [Entitic vol] 10.9 fL 9.5-13.5 [facility] Platelets Auto (Bld) [#/Vol] on 09-18-2023 Platelets (Bld) [#/Vol] 300 10 3/uL 150-450 [facility] Prothrombin time (PT)on 09-03 PT Coag (PPP) [Time] 11.4 s 9.0-11.6 [facility] RBC Auto (Bld) [#/Vol]on RBC (Bld) [#/Vol] 4.65 10 6/uL Low 4.70-6.10 [facility] Serum or plasma anion gap de terminationon 09-18-2023 Anion gap [Moles/Vol] 15.5 mmol/L Fi [facility] Laboratory - Microbiology an d Antimicrobial susceptibilityOrdered By: Teresa Lynch on 08-10-2023 Microscopic observation Gram stain Nom (Unsp spec) [facility] No Panel Informationon 08-09 Fungal Smear Result [facility] Miscellaneous Test Comment See comment [facility] Comment on above: Specimen Source: JONO TRT - Foot Right - Foot Rt - 604.000 No Panel InformationOrdered By: Teresa Lynch on 08-10-2023 [facility] Acid Fast Smear [facility] AFB Specimen Processing [facility] Tissue Culture [facility] Basophils Auto (Bld) [#/Vol] on 08-07-2023 Basophils (Bld) [#/Vol] 0.1 10 3/uL 0.0-0.1 [facility] Basophils/100 WBC Auto (Bld) on 08-07-2023 Basophils/100 WBC (Bld) 0.7 % 0.2-2.0 [facility] Eosinophils/100 WBC Auto (Bl d)on 08-07-2023 Eosinophils/100 WBC (Bld) 3.9 % 0.9-7.0 [facility] Erythrocyte distribution wid th Auto (RBC) [Ratio]on 08-07-2023 Erythrocyte distribution width (RBC) [Ratio] 16.9 % 11.0-15.0 [facility] Estimated glomerular filtrat ion rate (GFR) non- Americanon 08-07-2023 GFR/1.73 sq M.predicted among non-blacks MDRD (S/P/Bld) [Vol rate/Area] 42 mL/min/{1.73_m2} >=60 [facility] Globulin Calc (S) [Mass/Vol] on 08-07-2023 Globulin (S) [Mass/Vol] 4.0 g/dL [facility] Hematocrit Auto (Bld) [Volum e fraction]on 08-07-2023 Hematocrit (Bld) [Volume fraction] 31.5 % 42.0-54.0 [facility] Hemoglobin [Mass/volume] in Bloodon 08-07-2023 Hemoglobin (Bld) [Mass/Vol] 9.4 g/dL 14.0-18.0 [facility] Laboratory - Chemistry and C hemistry - challengeon 08-07-2023 Albumin [Mass/Vol] 2.1 g/dL 3.4-5.[address] [facility] ALP [Catalytic activity/Vol] 144 U/L 46-116 [facility] ALT [Catalytic activity/Vol] 21 U/L 16-63 [facility] AST [Catalytic activity/Vol] 25 U/L 15-37 [facility] Bilirubin [Mass/Vol] 0.4 mg/dL 0.2-1.0 [facility] Calcium [Mass/Vol] 8.1 mg/dL 8.5-10.[address] [facility] Chloride [Moles/Vol] 102 mmol/L 98-107 [facility] CO2 [Moles/Vol] 24.7 mmol/L 21.0-32.0 [facility] Creatinine [Mass/Vol] 1.70 mg/dL 0.70-1.30 [facility] GFR/1.73 sq M.predicted MDRD (S/P/Bld) [Vol rate/Area] 50 mL/min/{1.73_m2} >=60 [facility] Glucose [Mass/Vol] 188 mg/dL 74-[address] [facility] Potassium [Moles/Vol] 4.6 mmol/L 3.5-5.1 [facility] Protein [Mass/Vol] 6.1 g/dL 6.4-8.[address] [facility] Sodium [Moles/Vol] 135 mmol/L 136-[address] [facility] Urea nitrogen [Mass/Vol] 33.0 mg/dL 7.0-18.0 [facility] Urea nitrogen/Creatinine [Mass ratio] 19.4 mg/mg [facility] Laboratory - Hematology and Cell countson 08-07-2023 Immature granulocytes/100 WBC (Bld) 0.7 % 0.0-0.5 [facility] Leukocytes [#/volume] correc jorge for nucleated erythrocytes in Blood by Automated counon 08-07-2023 WBC corrected for nucl RBC Auto (Bld) [#/Vol] 12.0 10 3/uL 4.0-11.0 [facility] Lymphocytes Auto (Bld) [#/Vo l]on 08-07-2023 Lymphocytes (Bld) [#/Vol] 1.5 10 3/uL 1.2-3.8 [facility] Lymphocytes/100 WBC Auto (Bl d)on 08-07-2023 Lymphocytes/100 WBC (Bld) 12.4 % 20.5-60.0 [facility] MCH Auto (RBC) [Entitic mass ]on 08-07-2023 MCH (RBC) [Entitic mass] 22.5 pg 25.9-34.0 [facility] MCHC Auto (RBC) [Mass/Vol]on 08-07-2023 MCHC (RBC) [Mass/Vol] 29.8 g/dL 29.9-35.2 [facility] MCV Auto (RBC) [Entitic vol] on 08-07-2023 MCV (RBC) [Entitic vol] 75.4 fL 80.0-94.0 [facility] Monocytes Auto (Bld) [#/Vol] on 08-07-2023 Monocytes (Bld) [#/Vol] 1.2 10 3/uL 0.3-0.8 [facility] Monocytes/100 WBC Auto (Bld) on 08-07-2023 Monocytes/100 WBC (Bld) 10.1 % 1.7-12.0 [facility] Neutrophils Auto (Bld) [#/Vo l]on 08-07-2023 Neutrophils (Bld) [#/Vol] 8.7 10 3/uL 1.4-6.5 [facility] Neutrophils/100 WBC Auto (Bl d)on 08-07-2023 Neutrophils/100 WBC (Bld) 72.2 % 43.0-75.0 [facility] No Panel Informationon 08-06 Eosinophils # (Auto) 0.5 10 3/uL 0.0-0.7 [facility] Immature Granulocyte # (Auto) 0.09 10 3/uL 0.00-0.03 [facility] Platelet mean volume Auto (B ld) [Entitic vol]on 08-07-2023 Platelet mean volume (Bld) [Entitic vol] 11.7 fL 9.5-13.5 [facility] Platelets Auto (Bld) [#/Vol] on 08-07-2023 Platelets (Bld) [#/Vol] 222 10 3/uL 150-450 [facility] RBC Auto (Bld) [#/Vol]on RBC (Bld) [#/Vol] 4.18 10 6/uL 4.70-6.10 [facility] Serum or plasma albumin/glob ulin mass ratioon 08-07-2023 Albumin/Globulin [Mass ratio] 0.5 {ratio} [facility] Serum or plasma anion gap de terminationon 08-07-2023 Anion gap [Moles/Vol] 12.9 [facility] Basophils Auto (Bld) [#/Vol] on 08-06-2023 Basophils (Bld) [#/Vol] 0.1 10 3/uL 0.0-0.1 [facility] Basophils/100 WBC Auto (Bld) on 08-06-2023 Basophils/100 WBC (Bld) 0.7 % 0.2-2.0 [facility] Eosinophils/100 WBC Auto (Bl d)on 08-06-2023 Eosinophils/100 WBC (Bld) 3.3 % 0.9-7.0 [facility] Erythrocyte distribution wid th Auto (RBC) [Ratio]on 08-06-2023 Erythrocyte distribution width (RBC) [Ratio] 17.0 % 11.0-15.0 [facility] Estimated glomerular filtrat ion rate (GFR) non- Americanon 08-06-2023 GFR/1.73 sq M.predicted among non-blacks MDRD (S/P/Bld) [Vol rate/Area] 36 mL/min/{1.73_m2} >=60 [facility] Globulin Calc (S) [Mass/Vol] on 08-06-2023 Globulin (S) [Mass/Vol] 4.0 g/dL [facility] Hematocrit Auto (Bld) [Volum e fraction]on 08-06-2023 Hematocrit (Bld) [Volume fraction] 30.1 % 42.0-54.0 [facility] Hemoglobin [Mass/volume] in Bloodon 08-06-2023 Hemoglobin (Bld) [Mass/Vol] 8.8 g/dL 14.0-18.0 [facility] Laboratory - Chemistry and C hemistry - challengeon 08-06-2023 Albumin [Mass/Vol] 2.0 g/dL 3.4-5.[address] [facility] ALP [Catalytic activity/Vol] 127 U/L 46-116 [facility] ALT [Catalytic activity/Vol] 14 U/L 16-63 [facility] AST [Catalytic activity/Vol] 16 U/L 15-37 [facility] Bilirubin [Mass/Vol] 0.4 mg/dL 0.2-1.0 [facility] Calcium [Mass/Vol] 7.9 mg/dL 8.5-10.[address] [facility] Chloride [Moles/Vol] 99 mmol/L 98-107 [facility] CO2 [Moles/Vol] 25.0 mmol/L 21.0-32.0 [facility] Creatinine [Mass/Vol] 1.95 mg/dL 0.70-1.30 [facility] GFR/1.73 sq M.predicted MDRD (S/P/Bld) [Vol rate/Area] 43 mL/min/{1.73_m2} >=60 [facility] Glucose [Mass/Vol] 297 mg/dL 74-[address] [facility] Potassium [Moles/Vol] 4.4 mmol/L 3.5-5.1 [facility] Protein [Mass/Vol] 6.0 g/dL 6.4-8.[address] [facility] Sodium [Moles/Vol] 133 mmol/L 136-[address] [facility] Urea nitrogen [Mass/Vol] 28.0 mg/dL 7.0-18.0 [facility] Urea nitrogen/Creatinine [Mass ratio] 14.4 mg/mg [facility] Laboratory - Hematology and Cell countson 08-06-2023 Immature granulocytes/100 WBC (Bld) 0.4 % 0.0-0.5 [facility] Leukocytes [#/volume] correc jorge for nucleated erythrocytes in Blood by Automated counon 08-06-2023 WBC corrected for nucl RBC Auto (Bld) [#/Vol] 10.1 10 3/uL 4.0-11.0 [facility] Lymphocytes Auto (Bld) [#/Vo l]on 08-06-2023 Lymphocytes (Bld) [#/Vol] 1.5 10 3/uL 1.2-3.8 [facility] Lymphocytes/100 WBC Auto (Bl d)on 08-06-2023 Lymphocytes/100 WBC (Bld) 14.4 % 20.5-60.0 [facility] MCH Auto (RBC) [Entitic mass ]on 08-06-2023 MCH (RBC) [Entitic mass] 22.5 pg 25.9-34.0 [facility] MCHC Auto (RBC) [Mass/Vol]on 08-06-2023 MCHC (RBC) [Mass/Vol] 29.2 g/dL 29.9-35.2 [facility] MCV Auto (RBC) [Entitic vol] on 08-06-2023 MCV (RBC) [Entitic vol] 77.0 fL 80.0-94.0 [facility] Monocytes Auto (Bld) [#/Vol] on 08-06-2023 Monocytes (Bld) [#/Vol] 1.1 10 3/uL 0.3-0.8 [facility] Monocytes/100 WBC Auto (Bld) on 08-06-2023 Monocytes/100 WBC (Bld) 10.4 % 1.7-12.0 [facility] Neutrophils Auto (Bld) [#/Vo l]on 08-06-2023 Neutrophils (Bld) [#/Vol] 7.2 10 3/uL 1.4-6.5 [facility] Neutrophils/100 WBC Auto (Bl d)on 08-06-2023 Neutrophils/100 WBC (Bld) 70.8 % 43.0-75.0 [facility] No Panel Informationon 08-05 Vancomycin Level Trough 13.6 ug/mL 5.0-20.0 [facility] Eosinophils # (Auto) 0.3 10 3/uL 0.0-0.7 [facility] Immature Granulocyte # (Auto) 0.04 10 3/uL 0.00-0.03 [facility] Platelet mean volume Auto (B ld) [Entitic vol]on 08-06-2023 Platelet mean volume (Bld) [Entitic vol] 12.2 fL 9.5-13.5 [facility] Platelets Auto (Bld) [#/Vol] on 08-06-2023 Platelets (Bld) [#/Vol] 190 10 3/uL 150-450 [facility] RBC Auto (Bld) [#/Vol]on RBC (Bld) [#/Vol] 3.91 10 6/uL 4.70-6.10 [facility] Serum or plasma albumin/glob ulin mass ratioon 08-06-2023 Albumin/Globulin [Mass ratio] 0.5 {ratio} [facility] Serum or plasma anion gap de terminationon 08-06-2023 Anion gap [Moles/Vol] 13.4 mmol/[facility] Automated epithelial cells c ount in urine sediment (number/area)on 08-05-2023 Epithelial cells Auto (Urine sed) [#/Area] RARE #/LPF NONE/RARE [facility] Automated leukocytes count i n urine sediment (number/area)on 08-05-2023 WBC Auto (Urine sed) [#/Area] NONE SEEN #/HPF 0-2 [facility] Automated urine specific gra vity by refractometryon 08-05-2023 Specific gravity Refractometry automated (U) [Rel density] <=1.005 1.005-1.02 5 [facility] Basophils Auto (Bld) [#/Vol] on 08-05-2023 Basophils (Bld) [#/Vol] 0.1 10 3/uL 0.0-0.1 [facility] Basophils/100 WBC Auto (Bld) on 08-05-2023 Basophils/100 WBC (Bld) 0.7 % 0.2-2.0 [facility] Bilirubin Auto test strip (U ) [Mass/Vol]on 08-05-2023 Bilirubin (U) [Mass/Vol] Negative NEGATIVE [facility] Casts typing in urine sedime nt by light microscopyon 08-05-2023 Casts LM Nom (Urine sed) NONE SEEN #/LPF NONE SEEN [facility] Color Auto (U)on 08-05-2023 Color (U) LT. YELLOW YELLOW [facility] Eosinophils/100 WBC Auto (Bl d)on 08-05-2023 Eosinophils/100 WBC (Bld) 2.5 % 0.9-7.0 [facility] Erythrocyte distribution wid th Auto (RBC) [Ratio]on 08-05-2023 Erythrocyte distribution width (RBC) [Ratio] 16.8 % 11.0-15.0 [facility] Estimated glomerular filtrat ion rate (GFR) non- Americanon 08-05-2023 GFR/1.73 sq M.predicted among non-blacks MDRD (S/P/Bld) [Vol rate/Area] 42 mL/min/{1.73_m2} >=60 [facility] Globulin Calc (S) [Mass/Vol] on 08-05-2023 Globulin (S) [Mass/Vol] 4.1 g/dL [facility] Glucose mean value [Mass/vol ume] in Blood Estimated from glycated hemoglobinon 08-05-2023 Average glucose Estimated from glycated hemoglobin (Bld) [Mass/Vol] 214 mg/dL [facility] Hematocrit Auto (Bld) [Volum e fraction]on 08-05-2023 Hematocrit (Bld) [Volume fraction] 31.8 % 42.0-54.0 [facility] Hemoglobin [Mass/volume] in Bloodon 08-05-2023 Hemoglobin (Bld) [Mass/Vol] 9.4 g/dL 14.0-18.0 [facility] Ketones Auto test strip (U) [Mass/Vol]on 08-05-2023 Ketones (U) [Mass/Vol] Negative NEGATIVE [facility] - Chemistry and C hemistry - challengeon 08-05-2023 Albumin [Mass/Vol] 2.3 g/dL 3.4-5.[address] [facility] ALP [Catalytic activity/Vol] 111 U/L 46-116 [facility] ALT [Catalytic activity/Vol] 11 U/L 16-63 [facility] AST [Catalytic activity/Vol] 11 U/L 15-37 [facility] Bilirubin [Mass/Vol] 0.5 mg/dL 0.2-1.0 [facility] Calcium [Mass/Vol] 8.1 mg/dL 8.5-10.[address] [facility] Chloride [Moles/Vol] 101 mmol/L 98-107 [facility] CO2 [Moles/Vol] 25.6 mmol/L 21.0-32.0 [facility] Creatinine [Mass/Vol] 1.68 mg/dL 0.70-1.30 [facility] GFR/1.73 sq M.predicted MDRD (S/P/Bld) [Vol rate/Area] 51 mL/min/{1.73_m2} >=60 [facility] Glucose [Mass/Vol] 111 mg/dL 74-[address] [facility] Potassium [Moles/Vol] 3.7 mmol/L 3.5-5.1 [facility] Protein [Mass/Vol] 6.4 g/dL 6.4-8.[address] [facility] Sodium [Moles/Vol] 138 mmol/L 136-[address] [facility] Urea nitrogen [Mass/Vol] 17.0 mg/dL 7.0-18.0 [facility] Urea nitrogen/Creatinine [Mass ratio] 10.1 mg/mg [facility] Laboratory - Hematology and Cell countson 08-05-2023 HbA1c (Bld) [Mass fraction] 9.1 % 4.5-6.2 [facility] Comment on above: ADA RECOMMENDED LIMI T 4.0 - 6.0ADA THERAPEUTIC TARGET < 7.0ACTION SUGGESTED> 7.0 Immature granulocytes/100 WBC (Bld) 0.4 % 0.0-0.5 [facility] Laboratory - Microbiology an d Antimicrobial susceptibilityOrdered By: Teresa Lynch on 08-05-2023 Microscopic observation Gram stain Nom (Unsp spec) [facility] Leukocytes [#/volume] correc jorge for nucleated erythrocytes in Blood by Automated counon 08-05-2023 WBC corrected for nucl RBC Auto (Bld) [#/Vol] 12.3 10 3/uL 4.0-11.0 [facility] Lymphocytes Auto (Bld) [#/Vo l]on 08-05-2023 Lymphocytes (Bld) [#/Vol] 1.5 10 3/uL 1.2-3.8 [facility] Lymphocytes/100 WBC Auto (Bl d)on 08-05-2023 Lymphocytes/100 WBC (Bld) 11.8 % 20.5-60.0 [facility] MCH Auto (RBC) [Entitic mass ]on 08-05-2023 MCH (RBC) [Entitic mass] 22.4 pg 25.9-34.0 [facility] MCHC Auto (RBC) [Mass/Vol]on 08-05-2023 MCHC (RBC) [Mass/Vol] 29.6 g/dL 29.9-35.2 [facility] MCV Auto (RBC) [Entitic vol] on 08-05-2023 MCV (RBC) [Entitic vol] 75.9 fL 80.0-94.0 [facility] Monocytes Auto (Bld) [#/Vol] on 08-05-2023 Monocytes (Bld) [#/Vol] 1.3 10 3/uL 0.3-0.8 [facility] Monocytes/100 WBC Auto (Bld) on 08-05-2023 Monocytes/100 WBC (Bld) 10.7 % 1.7-12.0 [facility] Mucus LM Ql (Urine sed)on Mucus Ql (Urine sed) NONE SEEN NONE SEEN [facility] Neutrophils Auto (Bld) [#/Vo l]on 08-05-2023 Neutrophils (Bld) [#/Vol] 9.1 10 3/uL 1.4-6.5 [facility] Neutrophils/100 WBC Auto (Bl d)on 08-05-2023 Neutrophils/100 WBC (Bld) 73.9 % 43.0-75.0 [facility] No Panel Informationon 08-04 Eosinophils # (Auto) 0.3 10 3/uL 0.0-0.7 [facility] Immature Granulocyte # (Auto) 0.05 10 3/uL 0.00-0.03 [facility] Platelet mean volume Auto (B ld) [Entitic vol]on 08-05-2023 Platelet mean volume (Bld) [Entitic vol] 11.2 fL 9.5-13.5 [facility] Platelets Auto (Bld) [#/Vol] on 08-05-2023 Platelets (Bld) [#/Vol] 184 10 3/uL 150-450 [facility] Protein Auto test strip (U) [Mass/Vol]on 08-05-2023 Protein (U) [Mass/Vol] Negative NEG/TRACE [facility] RBC Auto (Bld) [#/Vol]on RBC (Bld) [#/Vol] 4.19 10 6/uL 4.70-6.10 [facility] Serum or plasma albumin/glob ulin mass ratioon 08-05-2023 Albumin/Globulin [Mass ratio] 0.6 {ratio} [facility] Serum or plasma anion gap de terminationon 08-05-2023 Anion gap [Moles/Vol] 15.1 mmol/L [facility] Specific gravity Auto test s trip (U) [Rel density]on 08-05-2023 Specific gravity (U) [Rel density] CLEAR CLEAR [facility] Urine bacteria detection by automated methodon 08-05-2023 Bacteria Auto Ql (U) TRACE #/HPF NONE SEEN [facility] Urine glucose measurement by test strip (mass/volume)on 08-05-2023 Glucose Test strip (U) [Mass/Vol] >=1000 mg/dL NEGATIVE [facility] Urine hemoglobin detection b y automated test stripon 08-05-2023 Hemoglobin Auto test strip Ql (U) Negative NEGATIVE [facility] Urine nitrite detection by a utomated test stripon 08-05-2023 Nitrite Auto test strip Ql (U) Negative NEGATIVE [facility] Urine sediment crystal ident ification by light microscopyon 08-05-2023 Crystals LM Nom (Urine sed) None Seen #/HPF None Seen [facility] Urine sediment leukocyte cou nt by microscopy (number/high power field)on 08-05-2023 WBC LM.HPF (Urine sed) [#/Area] NONE SEEN #/HPF NONE SEEN [facility] Urobilinogen Auto test strip (U) [Mass/Vol]on 08-05-2023 Urobilinogen Qn (U) 0.2 {Brendan'U}/dL 0.2-1.0 [facility] pH Auto test strip (U)on pH (U) 6.0 [pH] 5.0-9.0 [facility] Basophils Auto (Bld) [#/Vol] on 08-04-2023 Basophils (Bld) [#/Vol] 0.1 10 3/uL 0.0-0.1 [facility] Basophils/100 WBC Auto (Bld) on 08-04-2023 Basophils/100 WBC (Bld) 0.8 % 0.2-2.0 [facility] Eosinophils/100 WBC Auto (Bl d)on 08-04-2023 Eosinophils/100 WBC (Bld) 2.8 % 0.9-7.0 [facility] Erythrocyte distribution wid th Auto (RBC) [Ratio]on 08-04-2023 Erythrocyte distribution width (RBC) [Ratio] 16.9 % 11.0-15.0 [facility] Estimated glomerular filtrat ion rate (GFR) non- Americanon 08-04-2023 GFR/1.73 sq M.predicted among non-blacks MDRD (S/P/Bld) [Vol rate/Area] 33 mL/min/{1.73_m2} >=60 [facility] Globulin Calc (S) [Mass/Vol] on 08-04-2023 Globulin (S) [Mass/Vol] 4.4 g/dL [facility] Hematocrit Auto (Bld) [Volum e fraction]on 08-04-2023 Hematocrit (Bld) [Volume fraction] 32.6 % 42.0-54.0 [facility] Hemoglobin [Mass/volume] in Bloodon 08-04-2023 Hemoglobin (Bld) [Mass/Vol] 9.6 g/dL 14.0-18.0 [facility] INR in Platelet poor plasma by Coagulation assayon 08-04-2023 INR Coag (PPP) [Relative time] 1.05 {INR} [facility] Comment on above: DESIRED INR:2.0-3.0 CONDITIONS NOT LISTED BELOW2.5-3.5 FOR PROSTHETIC HEART VALVE REPLACEMENT2.5-3.5 RECURRENT THROMBOSIS Laboratory - Chemistry and C hemistry - challengeon 08-04-2023 Albumin [Mass/Vol] 2.4 g/dL 3.4-5.[address] [facility] ALP [Catalytic activity/Vol] 109 U/L 46-116 [facility] ALT [Catalytic activity/Vol] 9 U/L 16-63 [facility] AST [Catalytic activity/Vol] U/L 15-37 [facility] Bilirubin [Mass/Vol] 0.4 mg/dL 0.2-1.0 [facility] Calcium [Mass/Vol] 8.0 mg/dL 8.5-10.[address] [facility] Chloride [Moles/Vol] 96 mmol/L 98-107 [facility] CO2 [Moles/Vol] 29.2 mmol/L 21.0-32.0 [facility] Creatinine [Mass/Vol] 2.06 mg/dL 0.70-1.30 [facility] GFR/1.73 sq M.predicted MDRD (S/P/Bld) [Vol rate/Area] 40 mL/min/{1.73_m2} >=60 [facility] Glucose [Mass/Vol] 329 mg/dL 74-[address] [facility] Potassium [Moles/Vol] 3.5 mmol/L 3.5-5.1 [facility] Protein [Mass/Vol] 6.8 g/dL 6.4-8.[address] [facility] Sodium [Moles/Vol] 132 mmol/L 136-[address] [facility] Urea nitrogen [Mass/Vol] 20.0 mg/dL 7.0-18.0 [facility] Urea nitrogen/Creatinine [Mass ratio] 9.7 mg/mg [facility] Laboratory - Hematology and Cell countson 08-04-2023 ESR (Bld) [Velocity] 89 mm/h <=20 [facility] Immature granulocytes/100 WBC (Bld) 0.3 % 0.0-0.5 [facility] Laboratory - Microbiology an d Antimicrobial susceptibilityOrdered By: Teresa Lynch on 08-04-2023 Microscopic observation Gram stain Nom (Unsp spec) [facility] Leukocytes [#/volume] correc jorge for nucleated erythrocytes in Blood by Automated counon 08-04-2023 WBC corrected for nucl RBC Auto (Bld) [#/Vol] 11.6 10 3/uL 4.0-11.0 [facility] Lymphocytes Auto (Bld) [#/Vo l]on 08-04-2023 Lymphocytes (Bld) [#/Vol] 1.7 10 3/uL 1.2-3.8 [facility] Lymphocytes/100 WBC Auto (Bl d)on 08-04-2023 Lymphocytes/100 WBC (Bld) 14.9 % 20.5-60.0 [facility] MCH Auto (RBC) [Entitic mass ]on 08-04-2023 MCH (RBC) [Entitic mass] 22.3 pg 25.9-34.0 [facility] MCHC Auto (RBC) [Mass/Vol]on 08-04-2023 MCHC (RBC) [Mass/Vol] 29.4 g/dL 29.9-35.2 [facility] MCV Auto (RBC) [Entitic vol] on 08-04-2023 MCV (RBC) [Entitic vol] 75.8 fL 80.0-94.0 [facility] Monocytes Auto (Bld) [#/Vol] on 08-04-2023 Monocytes (Bld) [#/Vol] 1.2 10 3/uL 0.3-0.8 [facility] Monocytes/100 WBC Auto (Bld) on 08-04-2023 Monocytes/100 WBC (Bld) 10.4 % 1.7-12.0 [facility] Neutrophils Auto (Bld) [#/Vo l]on 08-04-2023 Neutrophils (Bld) [#/Vol] 8.2 10 3/uL 1.4-6.5 [facility] Neutrophils/100 WBC Auto (Bl d)on 08-04-2023 Neutrophils/100 WBC (Bld) 70.8 % 43.0-75.0 [facility] No Panel InformationOrdered By: Teresa Lynch on 08-04-2023 Blood Culture 2 [facility] Blood Culture 1 [facility] Wound Culture [facility] No Panel Informationon 08-03 Aerobic & Anaerobic Susceptibility [facility] Miscellaneous Test Comment See comment [facility] Comment on above: Specimen Source: JONO T - Foot - Foot - 603.950 C-Reactive Protein, Quantitative 11.62 mg/dL <=0.50 [facility] Eosinophils # (Auto) 0.3 10 3/uL 0.0-0.7 [facility] Immature Granulocyte # (Auto) 0.04 10 3/uL 0.00-0.03 [facility] Platelet mean volume Auto (B ld) [Entitic vol]on 08-04-2023 Platelet mean volume (Bld) [Entitic vol] 11.5 fL 9.5-13.5 [facility] Platelets Auto (Bld) [#/Vol] on 08-04-2023 Platelets (Bld) [#/Vol] 206 10 3/uL 150-450 [facility] Prothrombin time (PT)on PT Coag (PPP) [Time] 11.1 s 9.0-11.6 [facility] RBC Auto (Bld) [#/Vol]on RBC (Bld) [#/Vol] 4.30 10 6/uL 4.70-6.10 [facility] Serum or plasma albumin/glob ulin mass ratioon 08-04-2023 Albumin/Globulin [Mass ratio] 0.5 {ratio} [facility] Serum or plasma anion gap de terminationon 08-04-2023 Anion gap [Moles/Vol] 10.3 mmol/L Fi [facility] Serum procalcitonin measurem enton 08-04-2023 Procalcitonin [Mass/Vol] 0.10 ng/mL 0.00-0.50 [facility] Basophils Auto (Bld) [#/Vol] on 08-03-2023 Basophils (Bld) [#/Vol] 0.1 10 3/uL 0.0-0.1 [facility] Basophils/100 WBC Auto (Bld) on 08-03-2023 Basophils/100 WBC (Bld) 0.7 % 0.2-2.0 [facility] Eosinophils/100 WBC Auto (Bl d)on 08-03-2023 Eosinophils/100 WBC (Bld) 1.8 % 0.9-7.0 [facility] Erythrocyte distribution wid th Auto (RBC) [Ratio]on 08-03-2023 Erythrocyte distribution width (RBC) [Ratio] 17.0 % 11.0-15.0 [facility] Estimated glomerular filtrat ion rate (GFR) non- Americanon 08-03-2023 GFR/1.73 sq M.predicted among non-blacks MDRD (S/P/Bld) [Vol rate/Area] 27 mL/min/{1.73_m2} >=60 [facility] Globulin Calc (S) [Mass/Vol] on 08-03-2023 Globulin (S) [Mass/Vol] 5.0 g/dL [facility] Hematocrit Auto (Bld) [Volum e fraction]on 08-03-2023 Hematocrit (Bld) [Volume fraction] 38.9 % 42.0-54.0 [facility] Hemoglobin [Mass/volume] in Bloodon 08-03-2023 Hemoglobin (Bld) [Mass/Vol] 11.8 g/dL 14.0-18.0 [facility] Laboratory - Chemistry and C hemistry - challengeon 08-03-2023 Lactate [Moles/Vol] 1.6 mmol/L 0.4-2.0 [facility] Albumin [Mass/Vol] 3.3 g/dL 3.4-5.[address] [facility] ALP [Catalytic activity/Vol] 134 U/L 46-116 [facility] ALT [Catalytic activity/Vol] 13 U/L 16-63 [facility] AST [Catalytic activity/Vol] U/L 15-37 [facility] Bilirubin [Mass/Vol] 0.6 mg/dL 0.2-1.0 [facility] Calcium [Mass/Vol] 9.3 mg/dL 8.5-10.[address] [facility] Chloride [Moles/Vol] 92 mmol/L 98-107 [facility] CO2 [Moles/Vol] 31.0 mmol/L 21.0-32.0 [facility] Creatinine [Mass/Vol] 2.45 mg/dL 0.70-1.30 [facility] GFR/1.73 sq M.predicted MDRD (S/P/Bld) [Vol rate/Area] 33 mL/min/{1.73_m2} >=60 [facility] Glucose [Mass/Vol] 310 mg/dL 74-[address] [facility] Potassium [Moles/Vol] 3.7 mmol/L 3.5-5.1 [facility] Protein [Mass/Vol] 8.3 g/dL 6.4-8.[address] [facility] Sodium [Moles/Vol] 133 mmol/L 136-[address] [facility] Urea nitrogen [Mass/Vol] 23.0 mg/dL 7.0-18.0 [facility] Urea nitrogen/Creatinine [Mass ratio] 9.4 mg/mg [facility] Laboratory - Hematology and Cell countson 08-03-2023 ESR (Bld) [Velocity] 118 mm/h <=20 [facility] Immature granulocytes/100 WBC (Bld) 0.4 % 0.0-0.5 [facility] Leukocytes [#/volume] correc jorge for nucleated erythrocytes in Blood by Automated counon 08-03-2023 WBC corrected for nucl RBC Auto (Bld) [#/Vol] 14.6 10 3/uL 4.0-11.0 [facility] Lymphocytes Auto (Bld) [#/Vo l]on 08-03-2023 Lymphocytes (Bld) [#/Vol] 2.1 10 3/uL 1.2-3.8 [facility] Lymphocytes/100 WBC Auto (Bl d)on 08-03-2023 Lymphocytes/100 WBC (Bld) 14.3 % 20.5-60.0 [facility] MCH Auto (RBC) [Entitic mass ]on 08-03-2023 MCH (RBC) [Entitic mass] 22.6 pg 25.9-34.0 [facility] MCHC Auto (RBC) [Mass/Vol]on 08-03-2023 MCHC (RBC) [Mass/Vol] 30.3 g/dL 29.9-35.2 [facility] MCV Auto (RBC) [Entitic vol] on 08-03-2023 MCV (RBC) [Entitic vol] 74.4 fL 80.0-94.0 [facility] Monocytes Auto (Bld) [#/Vol] on 08-03-2023 Monocytes (Bld) [#/Vol] 1.4 10 3/uL 0.3-0.8 [facility] Monocytes/100 WBC Auto (Bld) on 08-03-2023 Monocytes/100 WBC (Bld) 9.4 % 1.7-12.0 [facility] Neutrophils Auto (Bld) [#/Vo l]on 08-03-2023 Neutrophils (Bld) [#/Vol] 10.7 10 3/uL 1.4-6.5 [facility] Neutrophils/100 WBC Auto (Bl d)on 08-03-2023 Neutrophils/100 WBC (Bld) 73.4 % 43.0-75.0 [facility] No Panel Informationon C-Reactive Protein, Quantitative 14.63 mg/dL <=0.50 [facility] Eosinophils # (Auto) 0.3 10 3/uL 0.0-0.7 [facility] Immature Granulocyte # (Auto) 0.06 10 3/uL 0.00-0.03 [facility] Venous Blood Partial Pressure CO2 44.8 mm[Hg] 40.0-52.0 [facility] Venous Blood pH 7.432 7.330-7.43 0 [facility] No Panel InformationOrdered By: Teresa Lynch on 08-03-2023 Blood Culture 2 [facility] Blood Culture 1 [facility] Platelet mean volume Auto (B ld) [Entitic vol]on 08-03-2023 Platelet mean volume (Bld) [Entitic vol] 11.4 fL 9.5-13.5 [facility] Platelets Auto (Bld) [#/Vol] on 08-03-2023 Platelets (Bld) [#/Vol] 252 10 3/uL 150-450 [facility] RBC Auto (Bld) [#/Vol]on RBC (Bld) [#/Vol] 5.23 10 6/uL 4.70-6.10 [facility] Serum or plasma albumin/glob ulin mass ratioon 08-03-2023 Albumin/Globulin [Mass ratio] 0.7 {ratio} [facility] Serum or plasma anion gap de terminationon 08-03-2023 Anion gap [Moles/Vol] 13.7 mmol/L [facility] Activated partial thrombopla stin time (aPTT) in platelet poor plasma by coagulation aOrdered By: Abdullahi Wilson on 07-12-2023 aPTT Coag (PPP) [Time] 29.4 s 25.1-36.5 [facility] Comment on above: A hematocrit value g reater than 55% may lead to inaccurate results in coagulation testing. Patients having hematocrit values >55% require a special collection tube for coagulation studies. Please contact the laboratory at [phone] for redraw instructions. Alanine aminotransferase [En zymatic activity/volume] in Serum or PlasmaOrdered By: Abdullahi Wilson on 07-12-2023 ALT [Catalytic activity/Vol] 9 U/L 7-52 [facility] Albumin [Mass/volume] in Ser um or Plasma by Bromocresol green (BCG) dye binding methoOrdered By: Abdullahi Wilson on 07-12-2023 Albumin BCG dye [Mass/Vol] 3.9 g/dL 3.5-5.7 [facility] Alkaline phosphatase [Enzyma tic activity/volume] in Serum or PlasmaOrdered By: Abdullahi Wilson on 07-12-2023 ALP [Catalytic activity/Vol] 106 U/L 34-104 [facility] Aspartate aminotransferase [ Enzymatic activity/volume] in Serum or PlasmaOrdered By: Abdullahi Wilson on 07-12-2023 AST [Catalytic activity/Vol] 8 U/L 13-39 [facility] Basophils Auto (Bld) [#/Vol] Ordered By: Abdullahi Wilson on 07-12-2023 Basophils (Bld) [#/Vol] 0.1 10*3/uL 0.0-0.2 [facility] Basophils/100 WBC Auto (Bld) Ordered By: Abdullahi Wilson on 07-12-2023 Basophils/100 WBC (Bld) 1.1 % . [facility] Bilirubin.total [Mass/volume ] in Serum or PlasmaOrdered By: Abdullahi Wilson on 07-12-2023 Bilirubin [Mass/Vol] 0.4 mg/dL 0.3-1.0 [facility] Calcium [Mass/volume] in Ser um or PlasmaOrdered By: Abdullahi Wilson on 07-12-2023 Calcium [Mass/Vol] 8.5 mg/dL 8.6-10.[address] [facility] Carbon dioxide, total [Moles /volume] in Serum or PlasmaOrdered By: Abdullahi Wilson on 07-12-2023 CO2 [Moles/Vol] 24.5 mmol/L 21.0-31.0 [facility] Chloride [Moles/volume] in S ilia or PlasmaOrdered By: Abdullahi Wilson on 07-12-2023 Chloride [Moles/Vol] 102 mmol/L 98-107 [facility] Creatine kinase [Enzymatic a ctivity/volume] in Serum or PlasmaOrdered By: Abdullahi Wilson on 07-12-2023 CK [Catalytic activity/Vol] 55 U/L 30-223 [facility] Creatinine [Mass/volume] in Serum or PlasmaOrdered By: Abdullahi Wilson on 07-12-2023 Creatinine [Mass/Vol] 1.82 mg/dL 0.70-1.30 [facility] Eosinophils Auto (Bld) [#/Vo l]Ordered By: Abdullahi Wilson on 07-12-2023 Eosinophils (Bld) [#/Vol] 0.3 10*3/uL 0.0-0.45 [facility] Eosinophils/100 WBC Auto (Bl d)Ordered By: Abdullahi Wilson on 07-12-2023 Eosinophils/100 WBC (Bld) 3.3 % . [facility] Erythrocyte distribution wid th Auto (RBC) [Ratio]Ordered By: Abdullahi Wilson on 07-12-2023 Erythrocyte distribution width (RBC) [Ratio] 17.1 % 12.0-14.8 [facility] Globulin Calc (S) [Mass/Vol] Ordered By: Abdullahi Wilson on 07-12-2023 Globulin (S) [Mass/Vol] 3.1 g/dL [facility] Glucose [Mass/volume] in Ser um or PlasmaOrdered By: Abdullahi Wilson on 07-12-2023 Glucose [Mass/Vol] 302 mg/dL 70-[address] [facility] Comment on above: ADA recommended refe rence rangeRandom Glucose Reference Range is dependent on time and content of last meal. Glucose of more than 200 mg/dL in a nonstressed, ambulatory subject supports the diagnosis of Diabetes Mellitus. Hematocrit Auto (Bld) [Volum e fraction]Ordered By: Abdullahi Wilson on 07-12-2023 Hematocrit (Bld) [Volume fraction] 32.7 % 38.8-50.0 [facility] Hemoglobin [Mass/volume] in BloodOrdered By: Abdullahi Wilson on 07-12-2023 Hemoglobin (Bld) [Mass/Vol] 10.6 g/dL 13.0-17.0 [facility] INR in Platelet poor plasma by Coagulation assayOrdered By: Abdullahi Wilson on 07-12-2023 INR Coag (PPP) [Relative time] 1.1 {INR} [facility] Comment on above: INR Therapeutic Rang e [...] valves: 3 - 4.5 Leukocytes [#/volume] correc jroge for nucleated erythrocytes in Blood by Automated counOrdered By: Abdullahi Wilson on 07-12-2023 WBC corrected for nucl RBC Auto (Bld) [#/Vol] 9.5 10*3/uL 4.1-10.5 [facility] Lymphocytes Auto (Bld) [#/Vo l]Ordered By: Abdullahi Wilson on 07-12-2023 Lymphocytes (Bld) [#/Vol] 1.9 10*3/uL 1.00-4.8 [facility] Lymphocytes/100 WBC Auto (Bl d)Ordered By: Abdullahi Wilson on 07-12-2023 Lymphocytes/100 WBC (Bld) 20.0 % . [facility] MCH Auto (RBC) [Entitic mass ]Ordered By: Abdullahi Wilson on 07-12-2023 MCH (RBC) [Entitic mass] 22.8 pg 27.5-35.2 [facility] MCHC Auto (RBC) [Mass/Vol]Or dered By: Abdullahi Wilson on 07-12-2023 MCHC (RBC) [Mass/Vol] 32.4 g/dL 32.5-35.6 [facility] MCV Auto (RBC) [Entitic vol] Ordered By: Abdullahi Wilson on 07-12-2023 MCV (RBC) [Entitic vol] 70.6 fL 83.5-101 [facility] Monocyte distribution width [Entitic volume] in Blood by AutomatedOrdered By: Abdullahi Wilson on 07-12-2023 Monocyte distribution width Auto (Bld) [Entitic vol] 18.12 % 0.00-20.00 [facility] Monocytes Auto (Bld) [#/Vol] Ordered By: Abdullahi Wilson on 07-12-2023 Monocytes (Bld) [#/Vol] 1.0 10*3/uL 0.0-0.8 [facility] Monocytes/100 WBC Auto (Bld) Ordered By: Abdullahi Wilson on 07-12-2023 Monocytes/100 WBC (Bld) 10.2 % . [facility] Natriuretic peptide B [Mass/ Vol]Ordered By: Abdullahi Wilson on 07-12-2023 Natriuretic peptide B (Bld) [Mass/Vol] 34.0 pg/mL 5-100 [facility] Neutrophils Auto (Bld) [#/Vo l]Ordered By: Abdullahi Wilson on 07-12-2023 Neutrophils (Bld) [#/Vol] 6.2 10*3/uL 1.8-7.7 [facility] Neutrophils/100 WBC Auto (Bl d)Ordered By: Abdullahi Wilson on 07-12-2023 Neutrophils/100 WBC (Bld) 65.4 % . [facility] No Panel InformationOrdered By: Abdullahi Wilson on 07-12-2023 Estimated GFR (CKD-EPI) 42.789 mL/Min [facility] Creatinine Clearance (Chem 54.64 [facility] Nucleated erythrocytes [Pres ence] in Blood by Automated countOrdered By: Abdullahi Wilson on 07-12-2023 Nucleated RBC Auto Ql (Bld) 0.1 /100{WBC} 0-0.5 [facility] Platelet mean volume Auto (B ld) [Entitic vol]Ordered By: Abdullahi Wilson on 07-12-2023 Platelet mean volume (Bld) [Entitic vol] 9.1 fL 6.6-10.1 [facility] Platelets Auto (Bld) [#/Vol] Ordered By: Abdullahi Wilson on 07-12-2023 Platelets (Bld) [#/Vol] 233 10*3/uL 150-450 [facility] Potassium [Moles/volume] in Serum or PlasmaOrdered By: Abdullahi Wilson on 07-12-2023 Potassium [Moles/Vol] 3.9 mmol/L 3.5-5.1 [facility] Protein [Mass/volume] in Ser um or PlasmaOrdered By: Abdullahi Wilson on 07-12-2023 Protein [Mass/Vol] 7.0 g/dL 6.4-8.[address] [facility] Prothrombin time (PT)Ordered By: Abdullahi Wilson on 07-12-2023 PT Coag (PPP) [Time] 12.1 s 9.0-12.9 [facility] Comment on above: A hematocrit value g reater than 55% may lead to inaccurate results in coagulation testing. Patients having hematocrit values >55% require a special collection tube for coagulation studies. Please contact the laboratory at [phone] for redraw instructions. RBC Auto (Bld) [#/Vol]Ordere d By: Abdullahi Wilson on 07-12-2023 RBC (Bld) [#/Vol] 4.63 10*6/uL 3.90-5.60 [facility] Serum or plasma albumin/glob ulin mass ratioOrdered By: Abdullahi Wilson on 07-12-2023 Albumin/Globulin [Mass ratio] 1.3 {ratio} [facility] Serum or plasma anion gap de terminationOrdered By: Abdullahi Wilson on 07-12-2023 Anion gap [Moles/Vol] 13.4 mmol/L 6.0-15.0 [facility] Sodium [Moles/volume] in Ser um or PlasmaOrdered By: Abdullahi Wilsno on 07-12-2023 Sodium [Moles/Vol] 136 mmol/L 136-[address] [facility] Troponin I.cardiac [Mass/vol ume] in Serum or Plasma by Detection limit <= 0.01 ng/Ordered By: Abdullahi Wilson on 07-12-2023 Troponin I.cardiac DL <= 0.01 ng/mL [Mass/Vol] 4.6 pg/mL 0.0-20.0 [facility] Urea nitrogen [Mass/volume] in Serum or PlasmaOrdered By: Abdullahi Wilson on 07-12-2023 Urea nitrogen [Mass/Vol] 16 mg/dL 7-25 [facility] WBC Auto (Bld) [#/Vol]Ordere d By: Abdullahi Wilson on 07-12-2023 WBC (Bld) [#/Vol] 9.5 10*3/uL 4.1-10.[address] [facility] Patient Educationon 06-02-20 23 Patient Education [...] Follow these instructions at home: ? Take [id number]-ojm-gvfsiuq and prescription medicines only as told by [...] the medicine (more content not included)... [facility] Retail - Clinical Noteon Retail - Clinical Note [id number]#1.00TIFF [facility] Urology Office/Clinic Noteon 06-02-2023 Urology Office/Clinic Note Chief Complaint S/p to Cysto HPI Staff Sp to Cysto done @ [facility] on 02/14/23- Has not noticed any difference- [...] Contact Information Yeyo ROWE MD, [address] [place] [address]- Additional Instructions: 1 month w/ cath volumes [...] heart failure) (more content not included)... [facility] Comment on above: Result Comment: Elec tronically Signed By: Yeyo ROWE MD\.br\Date and Time Signed: 06/02/23 12:16 EST\.br\Electronically Co-Signed By: Mattie Foster.br\Date and Time Co-Signed: 06/02/23 12:04 EST Patient Educationon 05-03-20 23 Patient Education [facility] Pathology Noteon 05-01-2023 Pathology Note [id number]#1.00TIFF [facility] Lab Reportson 04-14-2023 Lab Reports [id number]#1.00TIFF [facility] Operative Reporton Operative Report [id number]#1.00TIFF [facility] Patient Correspondenceon Patient Correspondence [id number]#1.00TIFF [facility] Lab Reportson 03-31-2023 Lab Reports [id number]#1.00TIFF [facility] RAD - MISCon 03-31-2023 RAD - MISC [id number]#1.00TIFF [facility] Patient Correspondenceon Patient Correspondence [id number]#1.00TIFF [facility] Formson 03-23-2023 Forms [id number]#1.00TIFF [facility] A1C HEMOGLOBINon 03-15-2023 HbA1c (Bld) [Mass fraction] 7.5 % idio Other HbA1c (Bld) [Mass fraction]o n 03-15-2023 A1C HEMOGLOBIN [facility] Other Lab Reportson 03-09-2023 Lab Reports [id number]#1.00TIFF [facility] Office Visit (Cardiology)on 02-15-2023 Follow-up visit [...] in adult Healthy Weight Tips; Status:Complete; Done: [id number] Patient Instructions Please bring all medicines, vitamins, [...] Sia HERRERA, (more content not included)... Normal [email or web address] Tobacco Screening.on 023 Fall risk assessment c) Not medically indicated [facility] [address] DO Work Phone: Tobacco use status CP b) No [facility] [address] DO Work Phone: Tobacco Screening. Yes [facility] [address] 250 DO Work Phone: NOH CARDIAC STRESS/REST INJE CTIONon 01-25-2023 NO CARDIAC STRESS/REST INJECTION Patient Name: MYRA PICKARD STUDY: MYOCARDIAL PERFUSION STRESS TEST WITH EXERCISE CONVERTED TO LEXISCAN Performing facility: [facility], [address], [address], [place] [address] [facility] Provider: Dolores Pickard RN, PLATFORM MATERIAL HANDLER MANAGER PCP: Dr. Teresa Lynch Supervising provider: Pascale Arnold MD, [facility] INDICATION: Anginal equivalent CAD; HISTORY: Gender: M; Age: 57 y/o ; Height: 182.88 cm; Weight: 97.2375198 kg. High Cholesterol; CAD; Diabetes; HTN; Palpitations; Chest Pain; Quit smoking unknown years ago. COMPARISON: Previous nuclear testing completed at [facility]. ACCESSION NUMBER(S): [id number]; [id number]; [id number] ORDERING CLINICIAN: DOLORES PICKARD TECHNIQUE: ONE DAY [...] Electronically signed by: PASCALE ARNOLD MD Normal [facility] No Panel Informationon 01-25 Normal [facility] [address] 250 DO Work Phone: Office [...] Med Order; Status:Hold For - Scheduling; Requested for:[id number]; Radiologist to Determine Optimal Study : Y [...] contact the office if new symptoms arise. 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 Normal [email or web address] Tobacco Screening.on 023 Adult depression screening assessment No [facility] Heart[facility] 600 DO Work Phone: Tobacco use status [facility]PH[facility] b) No [facility] 600 DO Work Phone: Alanine aminotransferase [En zymatic activity/volume] in Serum or PlasmaOrdered By: Teresa Lynch on 09-27-2022 ALT [Catalytic activity/Vol] 15 U/L 7-52 [facility] Albumin [Mass/volume] in Ser um or Plasma by Bromocresol green (BCG) dye binding methoOrdered By: Teresa Lynch on 09-27-2022 Albumin BCG dye [Mass/Vol] 4.1 g/dL 3.5-5.7 [facility] Alkaline phosphatase [Enzyma tic activity/volume] in Serum or PlasmaOrdered By: Teresa Lynch on 09-27-2022 ALP [Catalytic activity/Vol] 116 U/L 34-104 [facility] Aspartate aminotransferase [ Enzymatic activity/volume] in Serum or PlasmaOrdered By: Teresa Lynch on 09-27-2022 AST [Catalytic activity/Vol] 15 U/L 13-39 [facility] Basophils Auto (Bld) [#/Vol] Ordered By: Teresa Lynch on 09-27-2022 Basophils (Bld) [#/Vol] 0.1 10*3/uL 0.0-0.2 [facility] Basophils/100 WBC Auto (Bld) Ordered By: Teresa Lynch on 09-27-2022 Basophils/100 WBC (Bld) 1.1 % . [facility] Bilirubin.total [Mass/volume ] in Serum or PlasmaOrdered By: Teresa Lynch on 09-27-2022 Bilirubin [Mass/Vol] 0.4 mg/dL 0.3-1.0 [facility] Calcium [Mass/volume] in Ser um or PlasmaOrdered By: Teresa Lynch on 09-27-2022 Calcium [Mass/Vol] 8.8 mg/dL 8.6-10.[address] [facility] Carbon dioxide, total [Moles /volume] in Serum or PlasmaOrdered By: Teresa Lynch on 09-27-2022 CO2 [Moles/Vol] 27.2 mmol/L 21.0-31.0 [facility] Chloride [Moles/volume] in S ilia or PlasmaOrdered By: Teresa Lynch on 09-27-2022 Chloride [Moles/Vol] 99 mmol/L 98-107 [facility] Cholesterol [Mass/volume] in Serum or PlasmaOrdered By: Teresa Lynch on 09-27-2022 Cholesterol [Mass/Vol] 104 mg/dL 140-200 [facility] Comment on above: Chol less than 200 m g/dl low riskChol 201-239 mg/dl borderline riskChol 240 mg/dl and greater high risk Cholesterol in LDL Calc [Mas s/Vol]Ordered By: Teresa Lynch on 09-27-2022 Cholesterol in LDL [Mass/Vol] TNP [facility] Comment on above: Test not performed Cholesterol in LDL [Mass/vol ume] in Serum or PlasmaOrdered By: Teresa Lynch on 09-27-2022 Cholesterol in LDL [Mass/Vol] 38 mg/dL 0-100 [facility] Comment on above: LDL ATP III CLASSIFI CATIONLDL less than 100 mg/dL OptimalLDL 100-129 mg/dL Near or above optimalLDL 130-159 mg/dL Borderline highLDL 160-189 mg/dL HighLDL greater than 189 mg/dL Very high Cholesterol in VLDL Calc [Ma ss/Vol]Ordered By: Teresa Lynch on 09-27-2022 Cholesterol in VLDL [Mass/Vol] 99 mg/dL [facility] Creatinine [Mass/volume] in Serum or PlasmaOrdered By: Teresa Lynch on 09-27-2022 Creatinine [Mass/Vol] 1.84 mg/dL 0.70-1.30 [facility] Eosinophils Auto (Bld) [#/Vo l]Ordered By: Teresa Lynch on 09-27-2022 Eosinophils (Bld) [#/Vol] 0.7 10*3/uL 0.0-0.45 [facility] Eosinophils/100 WBC Auto (Bl d)Ordered By: Teresa Lynch on 09-27-2022 Eosinophils/100 WBC (Bld) 5.9 % . [facility] Erythrocyte distribution wid th Auto (RBC) [Ratio]Ordered By: Teresa Lynch on 09-27-2022 Erythrocyte distribution width (RBC) [Ratio] 16.0 % 12.0-14.8 [facility] Globulin Calc (S) [Mass/Vol] Ordered By: Teresa Lynch on 09-27-2022 Globulin (S) [Mass/Vol] 2.9 g/dL [facility] Glucose [Mass/volume] in Ser um or PlasmaOrdered By: Teresa Lynch on 09-27-2022 Glucose [Mass/Vol] 225 mg/dL 70-[address] [facility] Comment on above: ADA recommended refe rence rangeRandom Glucose Reference Range is dependent on time and content of last meal. Glucose of more than 200 mg/dL in a nonstressed, ambulatory subject supports the diagnosis of Diabetes Mellitus. Hematocrit Auto (Bld) [Volum e fraction]Ordered By: Teresa Lynch on 09-27-2022 Hematocrit (Bld) [Volume fraction] 41.0 % 38.8-50.0 [facility] Hemoglobin [Mass/volume] in BloodOrdered By: Teresa Lynch on 09-27-2022 Hemoglobin (Bld) [Mass/Vol] 13.2 g/dL 13.0-17.0 [facility] Leukocytes [#/volume] correc jorge for nucleated erythrocytes in Blood by Automated counOrdered By: Teresa Lynch on 09-27-2022 WBC corrected for nucl RBC Auto (Bld) [#/Vol] 12.4 10*3/uL 4.1-10.5 [facility] Lymphocytes Auto (Bld) [#/Vo l]Ordered By: Teresa Lynch on 09-27-2022 Lymphocytes (Bld) [#/Vol] 2.3 10*3/uL 1.00-4.8 [facility] Lymphocytes/100 WBC Auto (Bl d)Ordered By: Teresa Lynch on 09-27-2022 Lymphocytes/100 WBC (Bld) 18.2 % . [facility] MCH Auto (RBC) [Entitic mass ]Ordered By: Teresa Lynch on 09-27-2022 MCH (RBC) [Entitic mass] 23.9 pg 27.5-35.2 [facility] MCHC Auto (RBC) [Mass/Vol]Or dered By: Teresa Lynch on 09-27-2022 MCHC (RBC) [Mass/Vol] 32.2 g/dL 32.5-35.6 [facility] MCV Auto (RBC) [Entitic vol] Ordered By: Teresa Lynch on 09-27-2022 MCV (RBC) [Entitic vol] 74.3 fL 83.5-101 [facility] Monocytes Auto (Bld) [#/Vol] Ordered By: Teresa Lynch on 09-27-2022 Monocytes (Bld) [#/Vol] 1.0 10*3/uL 0.0-0.8 [facility] Monocytes/100 WBC Auto (Bld) Ordered By: Teresa Lynch on 09-27-2022 Monocytes/100 WBC (Bld) 7.9 % . [facility] Neutrophils Auto (Bld) [#/Vo l]Ordered By: Teresa Lynch on 09-27-2022 Neutrophils (Bld) [#/Vol] 8.3 10*3/uL 1.8-7.7 [facility] Neutrophils/100 WBC Auto (Bl d)Ordered By: Teresa Lynch on 09-27-2022 Neutrophils/100 WBC (Bld) 66.9 % . [facility] No Panel InformationOrdered By: Teresa Lynch on 09-27-2022 Estimated GFR (CKD-EPI) 42.232 mL/Min [facility] Creatinine Clearance (Chem N/A [facility] Nucleated erythrocytes [Pres ence] in Blood by Automated countOrdered By: Teresa Lynch on 09-27-2022 Nucleated RBC Auto Ql (Bld) 0.1 /100{WBC} 0-0.5 [facility] Platelet mean volume Auto (B ld) [Entitic vol]Ordered By: Teresa Lynch on 09-27-2022 Platelet mean volume (Bld) [Entitic vol] 9.1 fL 6.6-10.1 [facility] Platelets Auto (Bld) [#/Vol] Ordered By: Teresa Lynch on 09-27-2022 Platelets (Bld) [#/Vol] 209 10*3/uL 150-450 [facility] Potassium [Moles/volume] in Serum or PlasmaOrdered By: Teresa yLnch on 09-27-2022 Potassium [Moles/Vol] 4.3 mmol/L 3.5-5.1 [facility] Protein [Mass/volume] in Ser um or PlasmaOrdered By: Teresa Lynch on 09-27-2022 Protein [Mass/Vol] 7.0 g/dL 6.4-8.[address] [facility] RBC Auto (Bld) [#/Vol]Ordere d By: Teresa Lynch on 09-27-2022 RBC (Bld) [#/Vol] 5.52 10*6/uL 3.90-5.60 [facility] Serum or plasma albumin/glob ulin mass ratioOrdered By: Teresa Lynch on 09-27-2022 Albumin/Globulin [Mass ratio] 1.4 {ratio} [facility] Serum or plasma anion gap de terminationOrdered By: Teresa Lynch on 09-27-2022 Anion gap [Moles/Vol] 14.1 mmol/L 6.0-15.0 [facility] Serum or plasma high density lipoprotein (HDL) cholesterol measurementOrdered By: Teresa Lynch on 09-27-2022 Cholesterol in HDL [Mass/Vol] 21 mg/dL 29-71 [facility] Comment on above: HDL CHOL ATP-III CLA SSIFICATION Cardiovascular RiskHDL > or equal to 60 mg/dL LOWHDL < 40 mg/dL HIGH Serum or plasma total choles terol/high density lipoprotein (HDL) cholesterol mass ratOrdered By: Teresa Lynch on 09-27-2022 Cholesterol.total/Chol esterol in HDL [Mass ratio] 5.0 {ratio} <5.0 [facility] Sodium [Moles/volume] in Ser um or PlasmaOrdered By: Teresa Lynch on 09-27-2022 Sodium [Moles/Vol] 136 mmol/L 136-[address] [facility] Thyrotropin [Units/volume] i n Serum or PlasmaOrdered By: Teresa Lynch on 09-27-2022 TSH Qn 3.62 m[IU]/L 0.45-5.33 [facility] Triglyceride [Mass/volume] i n Serum or PlasmaOrdered By: Teresa Lynch on 09-27-2022 Triglyceride [Mass/Vol] 497 mg/dL 0-149 [facility] Comment on above: If the triglyceride result [...] mg/dL 2.4-7.6 [facility] Urea nitrogen [Mass/volume] in Serum or PlasmaOrdered By: Teresa Lynch on 09-27-2022 Urea nitrogen [Mass/Vol] 15 mg/dL 7- [facility] WBC Auto (Bld) [#/Vol]Ordere d By: Teresa Lynch on 09-27-2022 WBC (Bld) [#/Vol] 12.4 10*3/uL 4.1-10.5 [facility] A1C HEMOGLOBINon 02-15-2022 HbA1c (Bld) [Mass fraction] % [facility] Other HbA1c (Bld) [Mass fraction]o n 02-15-2022 A1C HEMOGLOBIN [facility] Other Tobacco Screening.on 022 Adult depression screening assessment No [facility] [address] DO Work Phone: Tobacco use status CPHS b) No [facility] [address] DO Work Phone: A1C HEMOGLOBINon 07-27-2021 HbA1c (Bld) [Mass fraction] 11.8 % [facility] Other HbA1c (Bld) [Mass fraction]o n 07-27-2021 A1C HEMOGLOBIN [facility] Other Vital Signs Date Time Vital Sign Value Performing Clinician Facility 02-05-2025 09:05-0400 Diastolic blood pressure 86 mm[Hg] Fabiana [address] [place] [address] 02-05-2025 09:05-0400 Heart rate 71 /min [address] 02-05-2025 09:05-0400 Systolic blood pressure 120 mm[Hg] Fabiana [address] [place] [address] 11-05-2024 16:13-0400 Body height 182.88 cm Teresa Lynch DO Work Phone: [facility] 11-05-2024 16:13-0400 Body mass index (BMI) [Ratio] 28.2 kg/m2 Teresa Lynch DO Work Phone: [facility] 11-05-2024 16:13-0400 Body weight 94.34 kg Teresa Lynch DO Work Phone: [facility] 11-05-2024 16:13-0400 Diastolic blood pressure 67 mm[Hg] Teresa Lynch DO Work Phone: [facility] 11-05-2024 16:13-0400 Heart rate 68 /min Teresa Kuns DO Work Phone: [facility] 11-05-2024 16:13-0400 Respiratory rate 18 /min Teresa Kuns DO Work Phone: [facility] 11-05-2024 16:13-0400 SaO2% (BldA) [Mass fraction] 96 % Teresa Kuns DO Work Phone: [facility] 11-05-2024 16:13-0400 Systolic blood pressure 105 mm[Hg] Teresa Kuns DO Work Phone: [facility] 11-05-2024 13:50-0400 Body weight 96.16 kg Teresa Jetts DO Work Phone: [facility] 11-05-2024 13:50-0400 Diastolic blood pressure 68 mm[Hg] Teresa Kuns DO Work Phone: [facility] 11-05-2024 13:50-0400 Heart rate 70 /min Teresa Kuns DO Work Phone: [facility] 11-05-2024 13:50-0400 Respiratory rate 18 /min Teresa Kuns DO Work Phone: [facility] 11-05-2024 13:50-0400 SaO2% (BldA) [Mass fraction] 98 % Teresa Jetts DO Work Phone: [facility] 11-05-2024 13:50-0400 Systolic blood pressure 108 mm[Hg] Teresa Kuns DO Work Phone: [facility] 10-11-2024 13:40-0400 Heart rate 62 /min Teresa Kuns DO Work Phone: [facility] 10-11-2024 13:40-0400 Respiratory rate 20 /min Teresa Kuns DO Work Phone: [facility] 10-11-2024 08:00-0400 Body temperature 98.3 [degF] Teresa Jetts DO Work Phone: [facility] 10-11-2024 08:00-0400 Diastolic blood pressure 68 mm[Hg] Teresa Kuns DO Work Phone: [facility] 10-11-2024 08:00-0400 SaO2% (BldA) [Mass fraction] 96 % Teresa Kuns DO Work Phone: [facility] 10-11-2024 08:00-0400 Systolic blood pressure 117 mm[Hg] Teresa Jetts DO Work Phone: [facility] 10-11-2024 06:00-0400 Body weight 92.6 kg Teresa Fraustos DO Work Phone: [facility] 10-10-2024 20:48-0400 Body height 182.88 cm Teresa Jetts DO Work Phone: [facility] 10-10-2024 20:30-0400 Diastolic blood pressure 71 mm[Hg] Teresa Jetts DO Work Phone: [facility] 10-10-2024 20:30-0400 Heart rate 78 /min Teresa Jetts DO Work Phone: [facility] 10-10-2024 20:30-0400 Respiratory rate 18 /min Teresa Jetts DO Work Phone: [facility] 10-10-2024 20:30-0400 SaO2% (BldA) [Mass fraction] 97 % Teresa Jetts DO Work Phone: [facility] 10-10-2024 20:30-0400 Systolic blood pressure 117 mm[Hg] Teresa Jetts DO Work Phone: [facility] 10-10-2024 14:36-0400 Body height 182.88 cm Teresa Jetts DO Work Phone: [facility] 10-10-2024 14:36-0400 Body temperature 97.6 [degF] Teresa Fraustos DO Work Phone: [facility] 10-10-2024 14:36-0400 Body weight 88.45 kg Teresa Fraustos DO Work Phone: [facility] 08-30-2024 09:28-0400 Body height 182.88 cm Teresa Fraustos DO Work Phone: [facility] 08-30-2024 09:28-0400 Body mass index (BMI) [Ratio] 27.1 kg/m2 Teresa Fraustos DO Work Phone: [facility] 08-30-2024 09:28-0400 Body weight 90.71 kg Teresa Fraustos DO Work Phone: [facility] 08-30-2024 09:28-0400 Diastolic blood pressure 70 mm[Hg] Teresa Jetts DO Work Phone: [facility] 08-30-2024 09:28-0400 Heart rate 82 /min Teresa Fraustos DO Work Phone: [facility] 08-30-2024 09:28-0400 Respiratory rate 16 /min Teresa Fraustos DO Work Phone: [facility] 08-30-2024 09:28-0400 SaO2% (BldA) [Mass fraction] 99 % Teresa Fraustos DO Work Phone: [facility] 08-30-2024 09:28-0400 Systolic blood pressure 102 mm[Hg] Teresa Jetts DO Work Phone: [facility] 08-13-2024 15:30-0400 Heart rate 66 /min Teresa Jetts DO Work Phone: [facility] 08-13-2024 15:30-0400 Respiratory rate 20 /min Teresa Jetts DO Work Phone: [facility] 08-13-2024 15:14-0400 Diastolic blood pressure 69 mm[Hg] Teresagorge Fraustos DO Work Phone: [facility] 08-13-2024 15:14-0400 SaO2% (BldA) [Mass fraction] 99 % Teresagorge Fraustos DO Work Phone: [facility] 08-13-2024 15:14-0400 Systolic blood pressure 122 mm[Hg] Teresa Kuns DO Work Phone: [facility] 08-13-2024 08:21-0400 Body temperature 97.6 [degF] Teresa Jetts DO Work Phone: [facility] 08-13-2024 06:48-0400 Body weight 91.5 kg Teresagorge Fraustos DO Work Phone: [facility] 08-11-2024 14:57-0400 Body height 182.88 cm Teresa Jetts DO Work Phone: [facility] 08-11-2024 06:29-0400 Body height 182.88 cm Teresa Jetts DO Work Phone: [facility] 08-11-2024 06:29-0400 Body temperature 98 [degF] Teresa Jetts DO Work Phone: [facility] 08-11-2024 06:29-0400 Body weight 91.3 kg Teresagorge Fraustos DO Work Phone: [facility] 08-11-2024 06:29-0400 Diastolic blood pressure 61 mm[Hg] Teresa Kuns DO Work Phone: [facility] 08-11-2024 06:29-0400 Heart rate 92 /min Teresa Jetts DO Work Phone: [facility] 08-11-2024 06:29-0400 Respiratory rate 16 /min Teresa Fraustos DO Work Phone: [facility] 08-11-2024 06:29-0400 SaO2% (BldA) [Mass fraction] 99 % Teresa Lynch DO Work Phone: [facility] 08-11-2024 06:29-0400 Systolic blood pressure 113 mm[Hg] Teresagorge Lynch DO Work Phone: [facility] 08-02-2024 09:02-0500 Blood Pressure Location MARYBEL THORNTONRY [facility] 08-02-2024 09:02-0500 Body temperature 96.98 [degF] MARYBEL RASHI [facility] 08-02-2024 09:02-0500 Diastolic blood pressure 69 mm[Hg] MARYBEL RASHI [facility] 08-02-2024 09:02-0500 Heart rate 80 /min MARYBEL RASHI [facility] 08-02-2024 09:02-0500 Respiratory rate 18 /min MARYBEL RASHI [facility] 08-02-2024 09:02-0500 Systolic blood pressure 118 mm[Hg] MARYBEL RASHI [facility] 05-27-2024 14:47-0500 Blood Pressure Location Yeyo ROWE [facility] 05-27-2024 14:47-0500 Body temperature 98.6 [degF] Yeyo ROWE [facility] 05-27-2024 14:47-0500 Diastolic blood pressure 69 mm[Hg] Yeyo ROWE [facility] 05-27-2024 14:47-0500 Heart rate 70 /min Yeyo ROWE [facility] 05-27-2024 14:47-0500 Respiratory rate 16 /min Yeyo ROWE [facility] 05-27-2024 14:47-0500 Systolic blood pressure 107 mm[Hg] Yeyo ROWE [facility] 05-07-2024 16:35-0500 Body temperature 98 [degF] Teresa Kuns DO Work Phone: [facility] 05-07-2024 16:35-0500 Diastolic blood pressure 55 mm[Hg] Teresa Kuns DO Work Phone: [facility] 05-07-2024 16:35-0500 Heart rate 79 /min Teresa Kuns DO Work Phone: [facility] 05-07-2024 16:35-0500 Respiratory rate 16 /min Teresa Kuns DO Work Phone: [facility] 05-07-2024 16:35-0500 SaO2% (BldA) [Mass fraction] 99 % Teresa Kuns DO Work Phone: [facility] 05-07-2024 16:35-0500 Systolic blood pressure 86 mm[Hg] Teresa Kuns DO Work Phone: [facility] 04-24-2024 11:04-0500 Diastolic blood pressure 60 mm[Hg] Kait Dan MD Work Phone: [facility] 04-24-2024 11:04-0500 Heart rate 86 /min Kait Dan MD Work Phone: [facility] 04-24-2024 11:04-0500 SaO2% (BldA) [Mass fraction] 99 % Kait Dan MD Work Phone: [facility] 04-24-2024 11:04-0500 Systolic blood pressure 122 mm[Hg] Kait Dan MD Work Phone: [facility] 04-23-2024 14:30-0500 Diastolic blood pressure 67 mm[Hg] Kait Dan MD Work Phone: [facility] 04-23-2024 14:30-0500 Heart rate 74 /min Kait Dan MD Work Phone: [facility] 04-23-2024 14:30-0500 Respiratory rate 18 /min Kait Dan MD Work Phone: [facility] 04-23-2024 14:30-0500 SaO2% (BldA) [Mass fraction] 98 % Kait Dan MD Work Phone: [facility] 04-23-2024 14:30-0500 Systolic blood pressure 104 mm[Hg] Kait Dan MD Work Phone: [facility] 04-23-2024 12:52-0500 Body height 182.88 cm Kait Dan MD Work Phone: [facility] 04-23-2024 12:52-0500 Body weight 88.45 kg Kait Dan MD Work Phone: [facility] 04-04-2024 16:48-0400 Body weight 88.45 kg Kait Dan MD Work Phone: [facility] 04-04-2024 14:00-0400 Diastolic blood pressure 62 mm[Hg] Kait Dan MD Work Phone: [facility] 04-04-2024 14:00-0400 Heart rate 86 /min Kait Dan MD Work Phone: [facility] 04-04-2024 14:00-0400 Respiratory rate 18 /min Kait Dan MD Work Phone: [facility] 04-04-2024 14:00-0400 SaO2% (BldA) [Mass fraction] 97 % Kait Dan MD Work Phone: [facility] 04-04-2024 14:00-0400 Systolic blood pressure 100 mm[Hg] Kait Dan MD Work Phone: [facility] 03-21-2024 10:30-0400 Diastolic blood pressure 68 mm[Hg] MD Kait Dan Work Phone: [facility] 03-21-2024 10:30-0400 Heart rate 95 /min MD Kait Dan Work Phone: [facility] 03-21-2024 10:30-0400 Systolic blood pressure 103 mm[Hg] MD Kait Dan Work Phone: [facility] 03-19-2024 17:26-0400 Body temperature 98.01 [degF] Guero Furlong DO Work Phone: [employer] 03-19-2024 17:26-0400 Diastolic blood pressure 78 mm[Hg] Guero Furlong DO Work Phone: [employer] 03-19-2024 17:26-0400 Heart rate 85 /min Guero Furlong DO Work Phone: [employer] 03-19-2024 17:26-0400 Respiratory rate 19 /min Guero Furlong DO Work Phone: [employer] 03-19-2024 17:26-0400 SaO2% (BldA) [Mass fraction] 96 % Guero Furlong DO Work Phone: [employer] 03-19-2024 17:26-0400 Systolic blood pressure 124 mm[Hg] Guero Furlong DO Work Phone: [employer] 03-15-2024 18:27-0400 Body mass index (BMI) [Ratio] 26.75 kg/m2 Guero Furlong DO Work Phone: [facility] [employer] 03-15-2024 18:27-0400 Body temperature 98.01 [degF] [facility] 03-15-2024 18:27-0400 Body weight 89.45 kg Guero [facility]clong [facility] 03-15-2024 18:27-0400 Diastolic blood pressure 94 mm[Hg] Guero Jesusitalong DO [facility] 03-15-2024 18:27-0400 Heart rate 84 /min Guero Jesusitalong DO Work Phone: [facility] 03-15-2024 18:27-0400 Respiratory rate 18 /min Guero Jesusitalong DO Work Phone: [facility] 03-15-2024 18:27-0400 SaO2% (BldA) [Mass fraction] 95 % Guero Mclong DO Work Phone: [facility] 03-15-2024 18:27-0400 Systolic blood pressure 131 mm[Hg] Guero Mclong DO Work Phone: [facility] 03-13-2024 11:08-0400 Body temperature 97.8 [degF] MD Kait Dan Work Phone: [facility] 03-13-2024 11:08-0400 Diastolic blood pressure 82 mm[Hg] MD Kait Dan Work Phone: [facility] 03-13-2024 11:08-0400 Heart rate 77 /min MD Kait Dan Work Phone: [facility] 03-13-2024 11:08-0400 Respiratory rate 16 /min MD Kait Dan Work Phone: [facility] 03-13-2024 11:08-0400 SaO2% (BldA) [Mass fraction] 99 % MD Kait Dan Work Phone: [facility] 03-13-2024 11:08-0400 Systolic blood pressure 149 mm[Hg] MD Kait Dan Work Phone: [facility] 03-13-2024 06:00-0400 Body weight 90.2 kg MD Kait Dan Work Phone: [facility] 03-09-2024 12:29-0400 Body height 180.34 cm MD Kait Dan Work Phone: [facility] 03-08-2024 21:00-0400 Diastolic blood pressure 72 mm[Hg] MD Kait Dan Work Phone: [facility] 03-08-2024 21:00-0400 Heart rate 93 /min MD Kait Dan Work Phone: [facility] 03-08-2024 21:00-0400 SaO2% (BldA) [Mass fraction] 97 % MD Kait Dan Work Phone: [facility] 03-08-2024 21:00-0400 Systolic blood pressure 134 mm[Hg] MD Kait Dan Work Phone: [facility] 03-08-2024 20:30-0400 Respiratory rate 16 /min MD Kait Dan Work Phone: [facility] 03-08-2024 20:07-0400 Body temperature 98.4 [degF] MD Kait Dan Work Phone: [facility] 03-08-2024 14:10-0400 Body height 180.34 cm MD Kait Dan Work Phone: [facility] 03-08-2024 14:10-0400 Body weight 89.3 kg MD Kait Dan Work Phone: [facility] 03-06-2024 15:51-0400 Body temperature 98.1 [degF] MD Kait Dan Work Phone: [facility] 03-06-2024 15:51-0400 Diastolic blood pressure 73 mm[Hg] MD Kait Dan Work Phone: [facility] 03-06-2024 15:51-0400 Heart rate 78 /min MD Kait Dan Work Phone: [facility] 03-06-2024 15:51-0400 Respiratory rate 16 /min MD Kait Dan Work Phone: [facility] 03-06-2024 15:51-0400 SaO2% (BldA) [Mass fraction] 97 % MD Kait Dan Work Phone: [facility] 03-06-2024 15:51-0400 Systolic blood pressure 140 mm[Hg] MD Kait Dan Work Phone: [facility] 03-06-2024 05:29-0400 Body weight 90.9 kg MD Kait Dan Work Phone: [facility] 03-05-2024 14:26-0400 Body height 182.88 cm MD Kait Dan Work Phone: [facility] 03-03-2024 17:00-0400 Diastolic blood pressure 67 mm[Hg] MD Kait Dan Work Phone: [facility] 03-03-2024 17:00-0400 Heart rate 86 /min MD Kait Dan Work Phone: [facility] 03-03-2024 17:00-0400 Respiratory rate 20 /min MD Kait Dan Work Phone: [facility] 03-03-2024 17:00-0400 SaO2% (BldA) [Mass fraction] 100 % MD Kait Dan Work Phone: [facility] 03-03-2024 17:00-0400 Systolic blood pressure 100 mm[Hg] MD Kait Dan Work Phone: [facility] 03-03-2024 13:45-0400 Body height 182.88 cm MD Kait Dan Work Phone: [facility] 03-03-2024 13:45-0400 Body temperature 97.9 [degF] MD Kait Dan Work Phone: [facility] 03-03-2024 13:45-0400 Body weight 91.5 kg MD Kait Dan Work Phone: [facility] 02-29-2024 09:27-0400 Body height 182.9 cm Mike Montes MD Work Phone: [facility] 02-29-2024 09:27-0400 Body mass index (BMI) [Ratio] 26.85 kg/m2 Mike Montes MD Work Phone: [facility] 02-29-2024 09:27-0400 Body temperature 98.01 [degF] Mike Montes MD Work Phone: [facility] 02-29-2024 09:27-0400 Body weight 89.81 kg Mike Montes MD Work Phone: [facility] 02-29-2024 09:27-0400 Diastolic blood pressure 62 mm[Hg] Mike Montes MD Work Phone: [facility] 02-29-2024 09:27-0400 Heart rate 77 /min Mike Montes MD Work Phone: [facility] 02-29-2024 09:27-0400 Respiratory rate 20 /min Mike Montes MD Work Phone: [facility] 02-29-2024 09:27-0400 SaO2% (BldA) [Mass fraction] 99 % Mike Montes MD Work Phone: [facility] 02-29-2024 09:27-0400 Systolic blood pressure 90 mm[Hg] Mike Montes MD Work Phone: [facility] 02-28-2024 14:52-0400 Body mass index (BMI) [Ratio] 26.65 kg/m2 Guero Tam DO Work Phone: [facility] 02-28-2024 14:52-0400 Body temperature 98.01 [degF] Guero Furlong DO Work Phone: [facility] 02-28-2024 14:52-0400 Body weight 89.13 kg Guero Furlong DO Work Phone: [facility] 02-28-2024 14:52-0400 Diastolic blood pressure 77 mm[Hg] Guero Furlong DO Work Phone: [facility] 02-28-2024 14:52-0400 Heart rate 95 /min Guero Furlong DO Work Phone: [facility] 02-28-2024 14:52-0400 Respiratory rate 18 /min Guero Furlong DO Work Phone: [facility] 02-28-2024 14:52-0400 SaO2% (BldA) [Mass fraction] 98 % Guero Furlong DO Work Phone: [facility] 02-28-2024 14:52-0400 Systolic blood pressure 129 mm[Hg] Guero Furlong DO Work Phone: [facility] 02-21-2024 17:40-0400 Hourly Rounding Mike Halean [facility] 02-21-2024 17:40-0400 Promise to Return Mike Simon [facility] 02-21-2024 16:32-0400 Hourly Rounding Mohnegro Simon [facility] 02-21-2024 16:32-0400 Promise to Return Mohnegro Simon [facility] 02-21-2024 15:00-0400 Hourly Rounding Mike Simon [facility] 02-21-2024 15:00-0400 Promise to Return Mike Simon [facility] 02-21-2024 10:51-0400 Heart rate 70 /min Mike Simon [facility] 02-21-2024 10:51-0400 SaO2% (BldA) [Mass fraction] 100 % Mike Simon [facility] 02-21-2024 10:47-0400 Body temperature 98.06 [degF] Mike Simon [facility] 02-21-2024 10:46-0400 Diastolic blood pressure 63 mm[Hg] Mike Simon [facility] 02-21-2024 10:46-0400 Mean blood pressure 76 mm[Hg] Mike Simon [facility] 02-21-2024 10:46-0400 Systolic blood pressure 101 mm[Hg] Mike Simon [facility] 02-21-2024 10:15-0400 Blood Pressure Location Mike Simon [facility] 02-21-2024 10:15-0400 Diastolic blood pressure 58 mm[Hg] Mike Simon [facility] 02-21-2024 10:15-0400 Heart rate 76 /min Mike Simon [facility] 02-21-2024 10:15-0400 Mean blood pressure 74 mm[Hg] Mohamed Simon [facility] 02-21-2024 10:15-0400 SaO2% (BldA) [Mass fraction] 100 % Mohamed Simon [facility] 02-21-2024 10:15-0400 Systolic blood pressure 106 mm[Hg] Mohamed Simon [facility] 02-21-2024 08:27-0400 Diastolic blood pressure 61 mm[Hg] Mike Halean [facility] 02-21-2024 08:27-0400 Systolic blood pressure 100 mm[Hg] Mike Simon [facility] 02-21-2024 08:25-0400 Heart rate 50 /min Mike Simon [facility] 02-21-2024 07:36-0400 Heart rate 68 /min Mike Simon [facility] 02-21-2024 07:36-0400 SaO2% (BldA) [Mass fraction] 100 % Mike Montes [facility] 02-21-2024 07:36-0400 Mean blood pressure 74 mm[Hg] Mike Montes [facility] 02-21-2024 07:36-0400 Body temperature 97.52 [degF] Mike Simon [facility] 02-21-2024 00:00-0400 Blood Pressure Location Mike Montes [facility] 02-21-2024 00:00-0400 Body temperature 97.52 [degF] Mike Halean [facility] 02-21-2024 00:00-0400 Mean blood pressure 77 mm[Hg] Mike Simon [facility] 02-20-2024 21:16-0400 Heart rate 83 /min Mike Ismon [facility] 02-20-2024 19:29-0400 Mean blood pressure 82 mm[Hg] Mike Simon [facility] 02-20-2024 19:29-0400 Body temperature 98.06 [degF] Mohamed Simon [facility] 02-20-2024 15:37-0400 gluc 104 mg/dL Mohamed Simon [facility] 02-20-2024 11:00-0400 Body temperature 98.42 [degF] Mohamed Simon [facility] 02-20-2024 11:00-0400 gluc 165 mg/dL Mohamed Simon [facility] 02-20-2024 11:00-0400 Mean blood pressure 81 mm[Hg] Mohamed Simon [facility] 02-20-2024 09:36-0400 Heart rate 96 /min Mohamed Simon [facility] 02-20-2024 09:00-0400 gluc 250 mg/dL Mohamed Simon [facility] 02-20-2024 09:00-0400 Respiratory rate 16 /min Mohamed Simon [facility] 02-20-2024 05:00-0400 Respiratory rate 18 /min Mohamed Simon [facility] 02-19-2024 23:00-0400 Respiratory rate 18 /min Mohamed Simon [facility] 02-15-2024 05:17-0400 Heart rate 83 /min Mohamed Simon [facility] 02-15-2024 00:28-0400 Heart rate 83 /min Mohamed Simon [facility] 02-14-2024 06:15-0400 Heart rate 89 /min Mohamed Simon [facility] 02-12-2024 16:40-0400 Respiratory rate 17 /min Mohamed Simon [facility] 02-12-2024 16:15-0400 Body temperature 97.7 [degF] Mike Montes [facility] 02-12-2024 16:15-0400 Respiratory rate 19 /min Mike Montes [facility] 02-12-2024 16:00-0400 Respiratory rate 18 /min Mike Montes [facility] 02-12-2024 14:46-0400 Body temperature 98.06 [degF] Mike Montes [facility] 01-18-2024 08:56-0400 Body height 182.9 cm Mike Mnotes MD Work Phone: [facility] 01-18-2024 08:56-0400 Body mass index (BMI) [Ratio] 27.8 kg/m2 Mike Montes MD Work Phone: [facility] 01-18-2024 08:56-0400 Body weight 92.99 kg Mike Montes MD Work Phone: [facility] 01-18-2024 08:56-0400 Diastolic blood pressure 67 mm[Hg] Mike Montes MD Work Phone: [facility] 01-18-2024 08:56-0400 Heart rate 122 /min Mike Montes MD Work Phone: [facility] 01-18-2024 08:56-0400 SaO2% (BldA) [Mass fraction] 100 % Mike Montes MD Work Phone: [facility] 01-18-2024 08:56-0400 Systolic blood pressure 108 mm[Hg] Mike Montes MD Work Phone: [facility] 01-17-2024 12:34-0400 Body height 182.[address] 01-17-2024 12:34-0400 Body mass index (BMI) [Ratio] 28.62 kg/m2 [address] 01-17-2024 12:34-0400 Body weight 95.[address] 01-17-2024 12:34-0400 Diastolic blood pressure 58 mm[Hg] [address] 01-17-2024 12:34-0400 Systolic blood pressure 102 mm[Hg] [address] 11-30-2023 23:10-0400 Body mass index (BMI) [Ratio] 27.86 kg/m2 Guero Furlong DO Work Phone: [facility] 11-30-2023 23:10-0400 Body temperature 97.3 [degF] Guero Furlong DO Work Phone: [facility] 11-30-2023 23:10-0400 Body weight 93.17 kg Guero Furlong DO Work Phone: [facility] 11-30-2023 23:10-0400 Diastolic blood pressure 74 mm[Hg] Guero Furlong DO Work Phone: [facility] 11-30-2023 23:10-0400 Heart rate 70 /min Guero Furlong DO Work Phone: [facility] 11-30-2023 23:10-0400 Respiratory rate 18 /min Guero Furlong DO Work Phone: [facility] 11-30-2023 23:10-0400 SaO2% (BldA) [Mass fraction] 98 % Guero Furlong DO Work Phone: [facility] 11-30-2023 23:10-0400 Systolic blood pressure 122 mm[Hg] Guero Furlong DO Work Phone: [facility] 11-30-2023 08:49-0400 Body height 182.9 cm Mike Montes MD Work Phone: [facility] 11-30-2023 08:49-0400 Body mass index (BMI) [Ratio] 28.21 kg/m2 Mike Montes MD Work Phone: [facility] [employer] 11-30-2023 08:49-0400 Body weight 94.35 kg Mike Montes MD Work Phone: [facility] 11-30-2023 08:49-0400 Diastolic blood pressure 78 mm[Hg] Mike Montes MD Work Phone: [facility] 11-30-2023 08:49-0400 Heart rate 94 /min Mike Montes MD Work Phone: [facility] [employer] 11-30-2023 08:49-0400 SaO2% (BldA) [Mass fraction] 99 % Mike Montes MD Work Phone: [facility] 11-30-2023 08:49-0400 Systolic blood pressure 109 mm[Hg] Mike Montes MD Work Phone: [facility] 11-24-2023 18:59-0400 Body mass index (BMI) [Ratio] 27.85 kg/m2 Guero Furlong DO Work Phone: [facility] [employer] 11-24-2023 18:59-0400 Body temperature 98.4 [degF] Guero Furlong DO Work Phone: [facility] 11-24-2023 18:59-0400 Body weight 93.17 kg Guero Furlong DO Work Phone: [facility] 11-24-2023 18:59-0400 Diastolic blood pressure 70 mm[Hg] Guero Furlong DO Work Phone: [facility] 11-24-2023 18:59-0400 Heart rate 68 /min Guero Furlong DO Work Phone: [facility] 11-24-2023 18:59-0400 Systolic blood pressure 122 mm[Hg] Guero Furlong DO Work Phone: [facility] 11-07-2023 15:50-0400 Body temperature 98.4 [degF] Guero Furlong DO Work Phone: [facility] 11-07-2023 15:50-0400 Diastolic blood pressure 97 mm[Hg] Guero Furlong DO Work Phone: [facility] 11-07-2023 15:50-0400 Heart rate 77 /min Guero Furlong DO Work Phone: [facility] 11-07-2023 15:50-0400 Systolic blood pressure 157 mm[Hg] Guero Furlong DO Work Phone: [facility] 11-03-2023 14:11-0400 Body mass index (BMI) [Ratio] 28.02 kg/m2 Guero Furlong DO Work Phone: [facility] 11-03-2023 14:11-0400 Body temperature 97.7 [degF] Guero Furlong DO Work Phone: [facility] 11-03-2023 14:11-0400 Body weight 93.71 kg Guero Furlong DO Work Phone: [facility] 11-03-2023 14:11-0400 Diastolic blood pressure 76 mm[Hg] Guero Furlong DO Work Phone: [facility] 11-03-2023 14:11-0400 Heart rate 75 /min Guero Furlong DO Work Phone: [facility] 11-03-2023 14:11-0400 Respiratory rate 20 /min Guero Furlong DO Work Phone: [facility] 11-03-2023 14:11-0400 SaO2% (BldA) [Mass fraction] 97 % Guero Furlong DO Work Phone: [facility] 11-03-2023 14:11-0400 Systolic blood pressure 122 mm[Hg] Gu[facility]long [facility] 10-25-2023 22:00-0400 Body mass index (BMI) [Ratio] 29.7 kg/m2 Guero Furlong DO [facility] 10-25-2023 22:00-0400 Body temperature 97.59 [degF] Guero Jesusitalong DO [facility] 10-25-2023 22:00-0400 Body weight 99.34 kg Guero Jesusitalong DO [facility] 10-25-2023 22:00-0400 Diastolic blood pressure 68 mm[Hg] Guero Jesusitalong DO [facility] 10-25-2023 22:00-0400 Heart rate 70 /min Guero Mclong DO [facility] 10-25-2023 22:00-0400 Respiratory rate 20 /min Guero Mclong DO [facility] 10-25-2023 22:00-0400 SaO2% (BldA) [Mass fraction] 97 % Guero Jesusitalong DO [facility] 10-25-2023 22:00-0400 Systolic blood pressure 128 mm[Hg] Guero Jesusitalong DO Work Phone: [facility] 10-24-2023 10:56-0400 Body height 182.9 cm Raulito Inman MD Work Phone: [facility] 10-24-2023 10:56-0400 Diastolic blood pressure 86 mm[Hg] Raulito Inman MD Work Phone: [facility] 10-24-2023 10:56-0400 Heart rate 104 /min Raulito Inman MD Work Phone: [facility] 10-24-2023 10:56-0400 Systolic blood pressure 134 mm[Hg] Raulito Inman MD Work Phone: [facility] 10-23-2023 09:37-0400 Blood Pressure Location Mike Simon [facility] 10-23-2023 09:37-0400 Diastolic blood pressure 82 mm[Hg] Mike Montes [facility] 10-23-2023 09:37-0400 Heart rate 107 /min Mike Montes [facility] 10-23-2023 09:37-0400 SaO2% (BldA) [Mass fraction] 98 % Mike Montes [facility] 10-23-2023 09:37-0400 Systolic blood pressure 130 mm[Hg] Mike Montes [facility] 10-18-2023 08:26-0400 Diastolic blood pressure 90 mm[Hg] Mike Montes MD Work Phone: [facility] 10-18-2023 08:26-0400 Systolic blood pressure 138 mm[Hg] Mike Montes MD Work Phone: [facility] 10-18-2023 08:25-0400 Body height 182.9 cm Mike Montes MD Work Phone: [facility] 10-18-2023 08:25-0400 Body mass index (BMI) [Ratio] 28.07 kg/m2 Mike Montes MD Work Phone: [facility] 10-18-2023 08:25-0400 Body weight 93.89 kg Mike Montes MD Work Phone: [facility] 10-17-2023 13:51-0400 Body temperature 98.4 [degF] Guero Furlong DO Work Phone: [facility] [employer] 10-17-2023 13:51-0400 Body weight 93.89 kg Guero Furlong DO Work Phone: [facility] 10-17-2023 13:51-0400 Diastolic blood pressure 70 mm[Hg] Guero Furlong DO Work Phone: [facility] 10-17-2023 13:51-0400 Heart rate 94 /min Guero Furlong DO Work Phone: [facility] 10-17-2023 13:51-0400 Respiratory rate 18 /min Guero Furlong DO Work Phone: [facility] 10-17-2023 13:51-0400 SaO2% (BldA) [Mass fraction] 97 % Guero Furlong DO Work Phone: [facility] 10-17-2023 13:51-0400 Systolic blood pressure 132 mm[Hg] Guero Furlong DO Work Phone: [facility] 10-10-2023 23:33-0400 Body temperature 98.1 [degF] Guero Furlong DO Work Phone: [facility] 10-10-2023 23:33-0400 Diastolic blood pressure 78 mm[Hg] Guero Furlong DO Work Phone: [facility] 10-10-2023 23:33-0400 Heart rate 102 /min Guero Furlong DO Work Phone: [facility] 10-10-2023 23:33-0400 Respiratory rate 18 /min Guero Furlong DO Work Phone: [facility] 10-10-2023 23:33-0400 SaO2% (BldA) [Mass fraction] 98 % Guero Furlong DO Work Phone: [facility] 10-10-2023 23:33-0400 Systolic blood pressure 142 mm[Hg] Guero Furlong DO Work Phone: [facility] 10-06-2023 16:50-0400 Body temperature 98.4 [degF] Guero Furlong DO Work Phone: [facility] 10-06-2023 16:50-0400 Body weight 93.89 kg Guero Furlong DO Work Phone: [facility] 10-06-2023 16:50-0400 Diastolic blood pressure 71 mm[Hg] Guero Furlong DO Work Phone: [facility] 10-06-2023 16:50-0400 Heart rate 98 /min Guero Furlong DO Work Phone: [facility] 10-06-2023 16:50-0400 Respiratory rate 18 /min Guero Furlong DO Work Phone: [facility] 10-06-2023 16:50-0400 SaO2% (BldA) [Mass fraction] 96 % Guero Furlong DO Work Phone: [facility] 10-06-2023 16:50-0400 Systolic blood pressure 117 mm[Hg] Guero Furlong DO Work Phone: [facility] 07-31-2023 12:00-0500 Diastolic blood pressure 63 mm[Hg] DO Teresa Kuns Work Phone: [facility] 07-31-2023 12:00-0500 Heart rate 75 /min DO Teresa Kuns Work Phone: [facility] 07-31-2023 12:00-0500 Systolic blood pressure 108 mm[Hg] DO Teresa Kuns Work Phone: [facility] 07-31-2023 08:33-0500 Respiratory rate 18 /min DO Teresa Kuns Work Phone: [facility] 07-12-2023 18:03-0500 Diastolic blood pressure 73 mm[Hg] DO Teresa Kuns Work Phone: [facility] 07-12-2023 18:03-0500 Heart rate 76 /min DO Teresa Kuns Work Phone: [facility] 07-12-2023 18:03-0500 Respiratory rate 20 /min DO Teresa Lynch Work Phone: [facility] 07-12-2023 18:03-0500 SaO2% (BldA) [Mass fraction] 98 % DO Teresa Lynch Work Phone: [facility] 07-12-2023 18:03-0500 Systolic blood pressure 125 mm[Hg] DO Teresa Lynch Work Phone: [facility] 07-12-2023 16:15-0500 Body height 182.88 cm DO Teresa Lynch Work Phone: [facility] 07-12-2023 16:15-0500 Body temperature 98.9 [degF] DO Teresa Lynch Work Phone: [facility] 07-12-2023 16:15-0500 Body weight 99.25 kg DO Teresa Lynch Work Phone: [facility] 06-02-2023 10:56-0500 Blood Pressure Location Yeyo ROWE [facility] 06-02-2023 10:56-0500 Body temperature 96.98 [degF] Yeyo ROWE [facility] 06-02-2023 10:56-0500 Diastolic blood pressure 84 mm[Hg] Yeyo ROWE [facility] 06-02-2023 10:56-0500 Heart rate 68 /min Yeyo ROWE [facility] 06-02-2023 10:56-0500 Systolic blood pressure 124 mm[Hg] Yeyo ROWE [facility] 04-06-2023 13:15-0400 Body height 180.34 cm Teresa Lynch Other [employer] Other 04-06-2023 13:15-0400 Body mass index (BMI) [Ratio] 29.43 kg/m2 Teresa Lynch Other [employer] Other 04-06-2023 13:15-0400 Body weight 95.71 kg Teresa Lynch Other [employer] Other 04-06-2023 13:15-0400 Diastolic blood pressure 70 mm[Hg] Teresa Lynch Other [employer] Other 04-06-2023 13:15-0400 Respiratory rate 18 /min Teresa Lynch Other [employer] Other 04-06-2023 13:15-0400 SaO2% (BldA) [Mass fraction] 97 % Teresa Lynch Other [employer] Other 04-06-2023 13:15-0400 Systolic blood pressure 100 mm[Hg] Teresa Lynch Other [employer] Other 03-15-2023 08:30-0400 Body height 180.34 cm Teresa Lynch Other [employer] Other 03-15-2023 08:30-0400 Body mass index (BMI) [Ratio] 29.01 kg/m2 Teresa Lynch Other [employer] Other 03-15-2023 08:30-0400 Body weight 94.35 kg Teresa Lynch Other [employer] Other 03-15-2023 08:30-0400 Diastolic blood pressure 62 mm[Hg] Teresa Lynch Other [employer] Other 03-15-2023 08:30-0400 Respiratory rate 16 /min Tersea Lynch Other [employer] Other 03-15-2023 08:30-0400 SaO2% (BldA) [Mass fraction] 97 % Teresagorge Lynch Other [employer] Other 03-15-2023 08:30-0400 Systolic blood pressure 88 mm[Hg] Teresa Lynch Other [employer] Other 02-15-2023 10:04-0400 Body height 182.88 cm Teresa Guerra Rory Work Phone: [facility] [employer] DO Work Phone: 02-15-2023 10:04-0400 Body mass index (BMI) [Ratio] 28.62 kg/m2 Teresa Guerra Rory Work Phone: [facility] [employer] 250 DO Work Phone: 02-15-2023 10:04-0400 Body surface area Derived from formula 2.18 m2 Teresa Guerra Rory Work Phone: [facility] [employer] 250 DO Work Phone: 02-15-2023 10:04-0400 Body weight 95.71 kg Teresa Fraustojoe Work Phone: [facility] [employer] 250 DO Work Phone: 02-15-2023 10:04-0400 Diastolic blood pressure 70 mm[Hg] Teresa Lynch Work Phone: [facility] 250 DO Work Phone: 02-15-2023 10:04-0400 Heart rate 76 /min Teresa Lynch Work Phone: [facility] 250 DO Work Phone: 02-15-2023 10:04-0400 Systolic blood pressure 102 mm[Hg] Teresa Lynch Work Phone: [facility] 250 DO Work Phone: 01-30-2023 10:23-0400 Blood Pressure Location Yeyo ROWE [facility] 01-30-2023 10:23-0400 Diastolic blood pressure 74 mm[Hg] Yeyo ROWE [facility] 01-30-2023 10:23-0400 Heart rate 68 /min Yeyo ROWE [facility] 01-30-2023 10:23-0400 Respiratory rate 16 /min Yeyoneel ROWE [facility] 01-30-2023 10:23-0400 Systolic blood pressure 130 mm[Hg] Yeyo ROWE [facility] 01-11-2023 15:08-0400 Body height 180.34 cm Teresa Lynch Work Phone: [facility] [employer] 600 DO Work Phone: 01-11-2023 15:08-0400 Body mass index (BMI) [Ratio] 30.13 kg/m2 Teresa Lynch Work Phone: [facility] 600 DO Work Phone: 01-11-2023 15:08-0400 Body surface area Derived from formula 2.18 m2 Teresa Lynch Work Phone: [facility] [employer] 600 DO Work Phone: 01-11-2023 15:08-0400 Body weight 97.98 kg Teresa Fraustojoe Work Phone: [facility] [employer] 600 DO Work Phone: 01-11-2023 15:08-0400 Diastolic blood pressure 86 mm[Hg] Teresa Lynch Work Phone: [facility] [employer] 600 DO Work Phone: 01-11-2023 15:08-0400 Heart rate 74 /min Teresa Lynch Work Phone: [facility] [employer] 600 DO Work Phone: 01-11-2023 15:08-0400 Systolic blood pressure 122 mm[Hg] Teresa Lynch Work Phone: [facility] [employer] [place] 600 DO Work Phone: 12-01-2022 12:45-0400 Body height 180.34 cm Teresa Lynch Other [facility] [employer] Other 12-01-2022 12:45-0400 Body mass index (BMI) [Ratio] 29.73 kg/m2 Teresa Lynch Other [employer] [employer] Other 12-01-2022 12:45-0400 Body weight 96.71 kg Teresa Lynch Other [employer] Other 12-01-2022 12:45-0400 Diastolic blood pressure 70 mm[Hg] Teresa Lynch Other [facility] [employer] Other 12-01-2022 12:45-0400 Respiratory rate 18 /min Teresa Lynch Other [employer] Other 12-01-2022 12:45-0400 SaO2% (BldA) [Mass fraction] 94 % Teresa Lynch Other [employer] Other 12-01-2022 12:45-0400 Systolic blood pressure 122 mm[Hg] Teresa Lynch Other [employer] Other 11-23-2022 11:38-0400 Blood Pressure Location Yeyo ROWE [facility] 11-23-2022 11:38-0400 Diastolic blood pressure 85 mm[Hg] Yeyo ROWE [facility] 11-23-2022 11:38-0400 Heart rate 76 /min Yeyo ROWE [facility] [place] 11-23-2022 11:38-0400 Systolic blood pressure 130 mm[Hg] Yeyo ROWE [facility] 07-04-2022 10:30-0500 Body height 180.34 cm Teresa Lynch Other [employer] Other 07-04-2022 10:30-0500 Body mass index (BMI) [Ratio] 29.43 kg/m2 Teresa Lynch Other [employer] Other 07-04-2022 10:30-0500 Body weight 95.71 kg Teresa Lynch Other [employer] Other 07-04-2022 10:30-0500 Diastolic blood pressure 86 mm[Hg] Teresa Lynch Other [employer] Other 07-04-2022 10:30-0500 Respiratory rate 16 /min Teresa Lynch Other [employer] Other 07-04-2022 10:30-0500 Systolic blood pressure 146 mm[Hg] Teresa Lynch Other [employer] Other 02-15-2022 13:45-0400 Body height 180.34 cm Teresa Lynch Other [employer] Other 02-15-2022 13:45-0400 Body mass index (BMI) [Ratio] 30.12 kg/m2 Teresa Lynch Other [employer] Other 02-15-2022 13:45-0400 Body weight 97.98 kg Teresa Lynch Other [employer] Other 02-15-2022 13:45-0400 Diastolic blood pressure 62 mm[Hg] Teresa Lynch Other [employer] Other 02-15-2022 13:45-0400 Respiratory rate 16 /min Teresa Lynch Other [employer] Other 02-15-2022 13:45-0400 SaO2% (BldA) [Mass fraction] 96 % Teresa Lynch Other [employer] Other 02-15-2022 13:45-0400 Systolic blood pressure 100 mm[Hg] Teresa Lynch Other [employer] Other 10-26-2021 10:01-0400 Body height 180.34 cm Teresa Lynch Work Phone: [place] [address] DO Work Phone: 10-26-2021 10:01-0400 Body mass index (BMI) [Ratio] 29.99 kg/m2 Teresa Lynch Work Phone: [facility] 250 DO Work Phone: 10-26-2021 10:01-0400 Body surface area Derived from formula 2.17 m2 Teresa Lynch Work Phone: [facility] 250 DO Work Phone: 10-26-2021 10:01-0400 Body weight 97.52 kg Teresa Lynch Work Phone: [facility] 250 DO Work Phone: 10-26-2021 10:01-0400 Diastolic blood pressure 70 mm[Hg] Teresa Lynch Work Phone: [facility] 250 DO Work Phone: 10-26-2021 10:01-0400 Heart rate 68 /min Teresa Lynch Work Phone: [facility] 250 DO Work Phone: 10-26-2021 10:01-0400 Systolic blood pressure 104 mm[Hg] Teresa Lynch Work Phone: [facility] [employer] 250 DO Work Phone: 10-19-2021 12:20-0400 Body height 180.34 cm [employer] Other [employer] Other 10-19-2021 12:20-0400 Body mass index (BMI) [Ratio] 30.65 kg/m2 [employer] Other [employer] Other 10-19-2021 12:20-0400 Body temperature 96.8 [degF] [employer] Other [employer] Other 10-19-2021 12:20-0400 Body weight 99.7 kg Amina Kinseys Other [employer] Other 10-19-2021 12:20-0400 Diastolic blood pressure 71 mm[Hg] Azjuan Kinseys Other [employer] Other 10-19-2021 12:20-0400 Respiratory rate 18 /min Amina Kinseys Other [employer] Other 10-19-2021 12:20-0400 SaO2% (BldA) [Mass fraction] 98 % Amina Kinseys Other [employer] Other 10-19-2021 12:20-0400 Systolic blood pressure 111 mm[Hg] Amina Kinseys Other [employer] Other 07-27-2021 14:00-0500 Body height 180.34 cm Teresa Lynch Other [employer] Other 07-27-2021 14:00-0500 Body mass index (BMI) [Ratio] 30.4 kg/m2 Teresa Lynch Other [employer] Other 07-27-2021 14:00-0500 Body weight 98.88 kg Teresa Lynch Other [employer] Other 07-27-2021 14:00-0500 Diastolic blood pressure 76 mm[Hg] Teresa Lynch Other [employer] Other 02-22-2022 14:00-0500 Respiratory rate 18 /min Teresa Lynch Other [employer] Other 07-27-2021 14:00-0500 SaO2% (BldA) [Mass fraction] 98 % Teresa Rory Other [employer] Other 07-27-2021 14:00-0500 Systolic blood pressure 112 mm[Hg] Teresa Lynch Other [employer] Other Encounters Encounter Date Encounter Type Care Provider Facility Start: 02-05-2025 End: 02-05-2025 ambulatory [facility] Start: 02-05-2025 End: 02-05-2025 Subsequent hospital visit by physician Fabiana Pinon N[facility] Admin Room [facility] Comment on above: Chest pain, unspecif ied type Start: 01-31-2025 End: 01-31-2025 ambulatory Yeyo ROWE Facility:[facility] Start: 01-31-2025 End: 01-31-2025 Patient encounter procedure Yeyo ROWE [facility] Start: 01-02-2025 End: 01-02-2025 Telephone encounter Baylee Vlad ABSORBER OPERATOR [facility] Start: 11-05-2024 End: 11-05-2024 ambulatory Teresa Lynch DO Work Phone: [facility] Work Phone: Start: 11-05-2024 End: 11-05-2024 Teresa Lynch DO Work Phone: [facility] Work Phone: Start: 11-05-2024 End: 11-05-2024 ambulatory Teresa Lynch DO Work Phone: [facility] Work Phone: Start: 11-05-2024 End: 11-05-2024 Teresa Lynch DO Work Phone: [facility] [place] Work Phone: Start: 10-26-2024 End: 10-26-2024 Patient encounter procedure Teresa Lnych DO Work Phone: [facility] [place] Work Phone: Start: 10-26-2024 End: 10-26-2024 Teresa Lynch DO Work Phone: [facility] [place] Work Phone: Start: 10-26-2024 End: 10-26-2024 ambulatory Teresa Lynch DO Work Phone: [facility] Work Phone: Start: 10-10-2024 End: 10-11-2024 ambulatory Teresa Lynch Facility:[facility] Start: 10-10-2024 End: 10-11-2024 Evaluation and management of inpatient Teresa Lynch DO Work Phone: [facility] [place] [facility] Work Phone: Start: 10-10-2024 observation encounter Teresa ramirez DO Work Phone: [facility] Work Phone: Start: 10-10-2024 End: 10-11-2024 Teresagorge Lynch DO Work Phone: [facility] [place] [facility] Work Phone: Start: 10-04-2024 [facility] Start: 09-27-2024 End: 09-27-2024 ambulatory Yeyo ROWE Facility:[facility] [place] Start: 08-30-2024 End: 08-30-2024 ambulatory Teresa Fraustos DO Work Phone: [facility] Work Phone: Start: 08-30-2024 End: 08-30-2024 Patient encounter procedure Teresa Lynch DO Work Phone: [facility] Physician [facility] [place] Work Phone: Start: 08-30-2024 End: 08-30-2024 Teresa Lynch DO Work Phone: [facility] Physician [facility] [place] Work Phone: Start: 08-11-2024 Non-patient / Non-visit Teresa Lynch DO Work Phone: [facility] Physician [facility] [place] Work Phone: Start: 08-11-2024 Teresa Lynch DO Work Phone: [facility] [place] Work Phone: Start: 08-11-2024 End: 08-13-2024 Evaluation and management of inpatient Teresa Lynch DO Work Phone: [facility] [place] [facility] Work Phone: Start: 08-11-2024 End: 08-13-2024 Teresa Lynch DO Work Phone: [facility] [place] [facility] Work Phone: Start: 08-02-2024 End: 08-02-2024 ambulatory PA-C MARYBEL VANG Facility:[facility] Start: 08-02-2024 End: 08-02-2024 Patient encounter procedure MARYBEL VANG [facility] Start: 07-24-2024 Non-patient / Non-visit Teresagorge Lynch DO Work Phone: [facility] Physician [facility] Work Phone: Start: 07-23-2024 End: 07-23-2024 Discharged Recurring Teresa Lynch DO Work Phone: [facility] [place] Start: 07-23-2024 Registered Recurring Teresa diaz DO Work Phone: [facility] [place] Start: 07-23-2024 End: 07-23-2024 ambulatory Teresa Lynch DO Work Phone: [facility] Work Phone: Start: 05-27-2024 End: 05-27-2024 ambulatory Yeyo ROWE Facility:[facility] Start: 05-27-2024 End: 05-27-2024 Lab Drop off Yeyo ROWE [facility] Start: 05-27-2024 End: 05-27-2024 ambulatory Yeyo ROWE Facility:[facility] Start: 05-27-2024 End: 05-27-2024 Patient encounter procedure Yeyo ROWE [facility] Start: 05-07-2024 End: 05-07-2024 Patient encounter procedure Teresa Lynch DO Work Phone: [facility] [place] [place] Work Phone: Start: 04-24-2024 End: 04-24-2024 ambulatory Kait Dan MD Work Phone: [facility] Work Phone: Start: 04-24-2024 End: 04-24-2024 Patient encounter procedure Kait Dan MD Work Phone: [facility] Work Phone: Start: 04-23-2024 Non-patient / Non-visit Kait Dan MD Work Phone: [facility] Work Phone: Start: 04-23-2024 End: 04-23-2024 Admission to same day surgery center Kait Dan MD Work Phone: [facility] Work Phone: Start: 04-23-2024 End: 04-23-2024 ambulatory Kait Dan MD Work Phone: [facility] Work Phone: Start: 04-19-2024 Non-patient / Non-visit Kait Dan MD Work Phone: [facility] [place] Work Phone: Start: 04-04-2024 End: 04-04-2024 ambulatory MD Kait Dan Work Phone: [facility] Work Phone: Start: 04-04-2024 End: 04-04-2024 Patient encounter procedure MD Kait Dan Work Phone: [facility] [place] Work Phone: Start: 03-29-2024 Non-patient / Non-visit MD Jeremi Dan Work Phone: [facility] [place] Work Phone: Start: 03-22-2024 End: 03-22-2024 Telephone encounter Moncho Jaime Call Mal blum Comment on above: Blood Sugar Problem (High blood sugars) Start: 03-21-2024 End: 03-21-2024 ambulatory MD Kait Dan Work Phone: [facility] Work Phone: Comment on above: History of right bel ow knee amputation (CMS-HCC) (Primary Dx) Start: 03-21-2024 End: 03-21-2024 Patient encounter procedure MD Kait Dan Work Phone: [facility] Work Phone: Start: 03-21-2024 End: 03-21-2024 MD Kait Dan Work Phone: [facility] Work Phone: Start: 03-19-2024 End: 03-19-2024 ambulatory Guero Tam DO Work Phone: [facility] Internal [facility] - Family Medicine Comment on above: Diabetic polyneuropa thy associated with type 2 diabetes mellitus ([facility]) (Primary Dx); Encounter for orthopedic aftercare following surgical amputation; Other abnormalities of gait and mobility; Restless leg syndrome Start: 03-15-2024 End: 03-15-2024 ambulatory Guero Tam DO Work Phone: [facility] - [facility] Comment on above: Diabetic polyneuropa thy associated with type 2 diabetes mellitus (CMS-HCC) (Primary Dx); Disorientation; Other abnormalities of gait and mobility; Status post partial amputation of right foot ([facility]-HCC); Atherosclerosis of [place] coronary artery of [place] heart without angina pectoris; Atrial fibrillation ([facility]); Primary hypertension Start: 03-15-2024 End: 03-15-2024 Telephone encounter Nancy Kim [facility] [place] [facility] Start: 03-12-2024 ambulatory [facility] Start: 03-10-2024 Non-patient / Non-visit MD Jeremi Dan Work Phone: [facility] Work Phone: Start: 03-10-2024 MD Kait richmond Work Phone: [facility] Work Phone: Start: 03-09-2024 Non-patient / Non-visit MD Jeremi Dan Work Phone: [facility] Work Phone: Start: 03-09-2024 MD Kait richmond Work Phone: [facility] Work Phone: Start: 03-08-2024 End: 03-13-2024 Evaluation and management of inpatient MD Kait Dan Work Phone: [facility] Work Phone: Start: 03-08-2024 End: 03-13-2024 MD Kait Dan Work Phone: [facility] [place] [facility] Work Phone: Start: 03-08-2024 End: 03-10-2024 Emergency department patient visit [facility] Start: 03-05-2024 Non-patient / Non-visit MD Jeremi Dan Work Phone: [facility] Work Phone: Start: 03-05-2024 MD Kait richmond Work Phone: [facility] Work Phone: Start: 03-04-2024 End: 03-06-2024 Evaluation and management of inpatient MD Kait Dan Work Phone: [facility] [place] [facility] Work Phone: Start: 03-04-2024 End: 03-06-2024 MD Kait Dan Work Phone: [facility] [place] [facility] Work Phone: Start: 03-03-2024 Evaluation and management of inpatient MD Kait Dan Work Phone: [facility] [place] [facility] Work Phone: Start: 03-03-2024 observation encounter MD Vikas Dan Work Phone: [facility] Work Phone: Start: 02-29-2024 End: 02-29-2024 Postop follow up visit related to original px Mike Montes MD [facility] Phone: [facility] Comment on above: PAD (peripheral iliana ry disease) ([facility]) (Primary Dx) Start: 02-28-2024 End: 02-28-2024 ambulatory Guero Tam DO [facility] Comment on above: Encounter for orthop edic aftercare following surgical amputation (Primary Dx); Cigarette smoker; Diabetic polyneuropathy associated with type 2 diabetes mellitus ([facility]); Other abnormalities of gait and mobility; Muscle spasm Start: 02-23-2024 End: 02-28-2024 ambulatory Guero Tam DO Work Phone: [facility] Comment on above: Encounter for orthop edic aftercare following surgical amputation (Primary Dx); Other abnormalities of gait and mobility; BPH with obstruction/lower urinary tract symptoms; Diabetic polyneuropathy associated with type 2 diabetes mellitus ([facility]); Atherosclerosis of [place] coronary artery of [place] heart without angina pectoris; Heart failure, unspecified HF chronicity, unspecified heart failure type ([facility]); Primary hypertension; Peripheral arterial disease ([facility]); Chronic obstructive pulmonary disease, unspecified COPD type ([facility]); Gastroesophageal reflux disease, unspecified whether esophagitis present; Muscle weakness (generalized) Start: 02-12-2024 End: 02-21-2024 Evaluation and management of inpatient MD Mike Montes Facility:[facility] Start: 02-12-2024 ambulatory Yeyo Ley ty:[facility] Start: 02-12-2024 ambulatory Mike Ley ty:[facility] Start: 02-12-2024 End: 02-21-2024 Evaluation and management of inpatient Mike Montes [facility] Start: 02-08-2024 Non-patient / Non-visit MD Jeremi Dan Work Phone: [facility] Work Phone: Start: 02-08-2024 MD Kait richmond Work Phone: [facility] Work Phone: Start: 02-01-2024 End: 02-01-2024 Clinisync Result Encounter Mike Montes MD Work Phone: [facility] External Department Unsolicited Start: 02-01-2024 End: 02-01-2024 Clinisync Result Encounter Mike Montes MD Work Phone: [facility] External Department Unsolicited Start: 02-01-2024 Non-patient / Non-visit MD Jeremi Dan Work Phone: [facility] Work Phone: Start: 02-01-2024 MD Kait richmond Work Phone: [facility] Work Phone: Start: 01-24-2024 Non-patient / Non-visit MD Jeremi Dan Work Phone: [facility] [place] Work Phone: Start: 01-24-2024 MD Kait richmond Work Phone: [facility] [place] Work Phone: Start: 01-18-2024 End: 01-18-2024 Office outpatient visit 25 minutes Mike Montes MD Work Phone[facility] V[facility] Surgery Comment on above: 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 (CMS-HCC) (Primary Dx); Cigarette smoker Start: 01-17-2024 End: 01-17-2024 Subsequent hospital visit by physician Fabiana Allred Echo/Vasc Room 2 [facility] Comment on above: Shortness of breath Start: 01-08-2024 End: 01-08-2024 ambulatory MD Mike Montes Facility:[facility] Start: 01-03-2024 Non-patient / Non-visit MD Jeremi Dan Work Phone: [facility] [place] Work Phone: Start: 01-03-2024 MD Kait richmond Work Phone: [facility] [place] Work Phone: Start: 01-01-2024 End: 01-01-2024 ambulatory [facility] Start: 01-01-2024 End: 01-01-2024 Encounter for preprocedural cardiovascular examination [facility] Start: 12-31-2023 Non-patient / Non-visit MD Jeremi Dan Work Phone: [facility] Work Phone: Start: 12-31-2023 MD Kait richmond Work Phone: [facility] Work Phone: Start: 12-30-2023 Non-patient / Non-visit MD Jeremi Dan Work Phone: [facility] Work Phone: Start: 12-30-2023 MD Kait richmond Work Phone: [facility] Work Phone: Start: 12-28-2023 Non-patient / Non-visit MD Jeremi Dan Work Phone: [facility] [place] Work Phone: Start: 12-28-2023 MD Kait richmond Work Phone: [facility] [place] Work Phone: Start: 12-25-2023 Non-patient / Non-visit MD Jeremi Dan Work Phone: [facility] [place] Work Phone: Start: 12-25-2023 MD Kait richmond Work Phone: [facility] [place] Work Phone: Start: 12-23-2023 Non-patient / Non-visit MD Jeremi Dan Work Phone: [facility] Work Phone: Start: 12-23-2023 MD Kait richmond Work Phone: [facility] Work Phone: Start: 12-22-2023 Non-patient / Non-visit MD Jeremi Dan Work Phone: [facility] Work Phone: Start: 12-22-2023 MD Kait richmond Work Phone: [facility] Work Phone: Start: 12-21-2023 Non-patient / Non-visit MD Jeremi Dan Work Phone: [facility] Work Phone: Start: 12-21-2023 MD Kait richmond Work Phone: [facility] Work Phone: Start: 12-21-2023 End: 12-21-2023 Office outpatient visit 25 minutes Mike Montes MD Work Phone: [facility] V[facility] Surgery [facility] Comment on above: 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 Work Phone: Start: 12-10-2023 MD Kait richmond Work Phone: [facility] Work Phone: Start: 12-10-2023 Non-patient / Non-visit DO Phillip gorge Fraustos Work Phone: [facility] Work Phone: Start: 12-10-2023 MD Kait richmond Work Phone: [facility] Work Phone: Start: 12-09-2023 Non-patient / Non-visit DO Phillip gorge Lynch Work Phone: [facility] Work Phone: Start: 12-09-2023 MD Kait richmond Work Phone: [facility] Work Phone: Start: 11-30-2023 End: 11-30-2023 Postop follow up visit related to original px Mike Montes MD Work Phone: [facility] Comment on above: 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 (CMS-HCC) (Primary Dx); 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 (CMS-HCC); Delayed surgical wound healing of foot amputation stump (CMS-HCC); Other abnormalities of gait and mobility Start: 11-26-2023 Non-patient / Non-visit DO Phillip Lynch Work Phone: [facility] Work Phone: Start: 11-24-2023 [...] mellitus (CMS-HCC) Start: 11-23-2023 End: 11-23-2023 ambulatory [facility] Start: 11-15-2023 End: 11-15-2023 [facility] Start: 11-15-2023 Non-patient / Non-visit DO Phillip Lynch Work Phone: [facility] Work Phone: Start: 11-14-2023 End: 11-14-2023 Evaluation and management of inpatient [facility] Start: 11-10-2023 End: 11-10-2023 Telephone encounter Franny Yu MD Work Phone: [facility] Start: 11-07-2023 End: 11-14-2023 Evaluation and management of inpatient [facility] Start: 11-07-2023 End: 11-19-2023 ambulatory Guero Tam DO Work Phone: [facility] Comment on above: Peripheral arterial disease (CMS-HCC) (Primary Dx); Delayed surgical wound healing of foot amputation stump ([facility]); Other abnormalities of gait and mobility; Status post partial amputation of right foot (CMS-HCC); Pressure ulcer of right ankle, stage 3 (CMS-HCC); Type 2 diabetes mellitus with stage 4 chronic kidney disease, without long-term current use of insulin (CMS-HCC) Start: 11-07-2023 End: 11-14-2023 Evaluation and management of inpatient MIKE MONTES [facility] Start: 11-03-2023 End: 11-10-2023 ambulatory Guero Ines Anel BRICENO Work Phone: [facility] Comment on above: Status post partial amputation of right foot (CMS-HCC) (Primary Dx); Pressure ulcer of right ankle, stage 3 (CMS-HCC); Other abnormalities of gait and mobility; Delayed surgical wound healing of foot amputation stump (CMS-HCC) Start: 10-25-2023 End: 10-30-2023 ambulatory Guero Ines Anel BRICENO Work Phone: [facility] Internal Medicine - Family Medicine Comment on above: Status post partial amputation of right foot (CMS-HCC) (Primary Dx); Osteomyelitis of right foot, unspecified type (CMS-HCC); Muscle weakness (generalized); Other abnormalities of gait and mobility; Chronic obstructive pulmonary disease, unspecified COPD type (CMS-HCC); Peripheral arterial disease (CMS-HCC) Start: 10-24-2023 Preoperative state [address] Start: 10-24-2023 Encounter for preprocedural cardiovascular examination [facility] Start: 10-24-2023 End: 10-24-2023 Office outpatient visit 25 minutes Raulito Inman MD Work Phone: [facility] Comment on above: History of PTCA; Hyperlipidemia, unspecified hyperlipidemia type; Encounter for pre-operative cardiovascular clearance; Former smoker Start: 10-24-2023 End: 10-24-2023 Patient encounter status Raulito Inman MD Work Phone: [facility] Work Phone: Start: 10-23-2023 End: 10-23-2023 ambulatory MD Mike Montes Facility:[facility] Start: 10-23-2023 End: 10-23-2023 Patient encounter procedure Mike Montes [facility] Start: 10-19-2023 End: 10-19-2023 ambulatory MD Mike Montes Facility:[facility] Start: 10-19-2023 End: 10-19-2023 Patient encounter procedure Mike Montes [facility] Start: 10-18-2023 End: 10-18-2023 Telephone encounter [facility] Start: 10-18-2023 End: 10-18-2023 Office outpatient new 45 minutes Mike Montes MD Work Phone: [facility] Comment on above: 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 ([facility]-HCC) (Primary Dx); Poor circulation; Heavy tobacco smoker >10 cigarettes per day Start: 10-18-2023 End: 10-18-2023 ambulatory [facility] Start: 10-17-2023 End: 10-22-2023 ambulatory Guero Tam DO Work Phone: [facility] Comment on above: Status post partial amputation of right foot ([facility]-H[facility]) (Primary Dx); 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); Type 2 diabetes mellitus with stage 4 chronic kidney disease, without long-term current use of insulin ([facility]-HCC) Start: 10-10-2023 End: 10-10-2023 ambulatory Guero Tam [...] disease, without long-term current use of insulin ([facility]) Start: 10-06-2023 End: 10-07-2023 ambulatory Guero Tam DO Work Phone: [facility] Comment on above: Abscess of right jono t (Primary Dx); Status post partial amputation of right foot ([facility]); Type 2 diabetes mellitus with stage 4 chronic kidney disease, without long-term current use of insulin ([facility]); Atherosclerosis of [place] coronary artery of [place] heart without angina pectoris; Bacterial sepsis ([facility]); Other acute osteomyelitis of right foot ([facility]); Chronic obstructive pulmonary disease, unspecified COPD type ([facility]); Cigarette smoker; BPH with obstruction/lower urinary tract symptoms; Gastroesophageal reflux disease, unspecified whether esophagitis present; Restless leg syndrome; Hyperlipidemia, unspecified hyperlipidemia type; Carpal tunnel syndrome, unspecified laterality; Heart failure, unspecified HF chronicity, unspecified heart failure type ([facility]) Start: 10-06-2023 Non-patient / Non-visit DO Phillip an Kuns Work Phone: [facility] Work Phone: Start: 10-05-2023 End: 10-05-2023 ambulatory DO Teresa Lynch Work Phone: [facility] Work Phone: Start: 10-05-2023 End: 10-05-2023 Departed Referred DO Teresa Lynch Work Phone: [facility] Start: 10-05-2023 Non-patient / Non-visit DO Phillip an Kuns Work Phone: [facility] Work Phone: Start: 10-04-2023 Non-patient / Non-visit DO Phillip an Kuns Work Phone: [facility] Work Phone: Start: 10-03-2023 Non-patient / Non-visit DO Phillip an Kuns Work Phone: [facility] Work Phone: Start: 10-02-2023 End: 10-02-2023 ambulatory DO Teresa Fraustos Work Phone: [facility] Work Phone: Start: 10-02-2023 End: 10-02-2023 Departed Referred DO Teresa Fraustos Work Phone: [facility] Start: 10-02-2023 Non-patient / Non-visit DO Phillip an Kuns Work Phone: [facility] Work Phone: Start: 10-01-2023 Non-patient / Non-visit DO Phillip an Kuns Work Phone: [facility] Work Phone: Start: 09-30-2023 Non-patient / Non-visit DO Phillip an Kuns Work Phone: [facility] Work Phone: Start: 09-27-2023 Non-patient / Non-visit DO Phillip an Kuns Work Phone: [facility] Work Phone: Start: 09-21-2023 End: 09-21-2023 ambulatory DO Teresa Fraustojoe Work Phone: [facility] Work Phone: Start: 09-21-2023 End: 09-21-2023 Departed Referred DO Teresa Fraustos Work Phone: [facility] Start: 09-21-2023 Non-patient / Non-visit DO Phillip an Kuns Work Phone: [facility] Work Phone: Start: 09-18-2023 Non-patient / Non-visit DO Phillip an Kuns Work Phone: [facility] Work Phone: Start: 09-08-2023 End: 09-08-2023 ambulatory Yeyo ROWE Facility:[facility] Start: 09-08-2023 End: 09-08-2023 Patient encounter procedure Yeyo Blum [facility] Start: 08-10-2023 Non-patient / Non-visit DO Phillip an Kuns Work Phone: [facility] Work Phone: Start: 08-08-2023 Non-patient / Non-visit DO Phillip an Kuns Work Phone: [facility] Work Phone: Start: 08-07-2023 Non-patient / Non-visit DO Phillip an Kuns Work Phone: [facility] Work Phone: Start: 08-06-2023 Non-patient / Non-visit DO Phillip an Kuns Work Phone: [facility] Work Phone: Start: 08-05-2023 Non-patient / Non-visit DO Phillip an Kuns Work Phone: [facility] Work Phone: Start: 08-04-2023 Non-patient / Non-visit DO Phillip an Kuns Work Phone: [facility] Work Phone: Start: 08-03-2023 Non-patient / Non-visit DO Phillip an Kuns Work Phone: [facility] Work Phone: Start: 07-31-2023 Registered Recurring DO Teresa Lynch Work Phone: [facility]Infusion Therapy - O/P Work Phone: Start: 07-26-2023 Non-patient / Non-visit DO Phillip Lynch Work Phone: [facility] Work Phone: Start: 07-12-2023 End: 07-12-2023 Emergency department patient visit DO Teresa Lynch Work Phone: [facility]Emergency Room Work Phone: Start: 07-07-2023 End: 07-07-2023 ambulatory Teresa Lynch Other [facility] Other Start: 07-07-2023 [facility] Start: 07-03-2023 End: 07-03-2023 ambulatory Yeyo ROWE Facility:[facility] Start: 06-26-2023 End: 06-26-2023 ambulatory Teresa Lynch Other [employer] Other Start: 06-26-2023 Telephone encounter Teresa Lynch [facility] [place] Start: 06-02-2023 End: 06-02-2023 ambulatory Yeyo ROWE Facility:[facility] Start: 06-02-2023 End: 06-02-2023 Patient encounter procedure Yeyo ROWE [facility] [place] Start: 05-16-2023 End: 05-16-2023 ambulatory Teresa Lynch Other [employer] Other Start: 05-16-2023 Telephone encounter Teresa Lynch [facility] [place] Start: 05-03-2023 End: 05-03-2023 ambulatory Yeyo ROWE Facility:[facility] Start: 05-03-2023 End: 05-03-2023 Patient encounter procedure Yeyo ROWE [facility] [place] Start: 04-28-2023 End: 04-28-2023 ambulatory Teresa Lynch Other [employer] Other Start: 04-28-2023 Telephone encounter Teresa Lynch [facility] [place] Start: 04-18-2023 End: 04-18-2023 ambulatory Yeyoneel ROWE Facility:[facility] Start: 04-18-2023 End: 04-18-2023 Patient encounter procedure Yeyo ROWE [facility] [place] Start: 04-17-2023 ambulatory Yeyo R ROWE Facili ty:[facility] Start: 04-13-2023 End: 04-13-2023 ambulatory Yeyo ROWE Facility:[id number] Start: 04-11-2023 End: 04-11-2023 ambulatory Teresa Lynch Other [employer] Other Start: 04-11-[address] Lynch [facility] [place] Start: 04-06-2023 End: 04-06-2023 ambulatory Teresa Lynch Other [facility] Other Start: 04-06-2023 Encounter for other preprocedural examination Teresa Lynch [facility] [place] Start: 04-06-2023 Office outpatient vi sit [address] [facility] [place] Start: 03-28-2023 End: 03-28-2023 ambulatory Teresa Lynch Other [employer] Other Start: 03-28-2023 Telephone encounter Teresa Lynch [facility] [place] Start: 03-20-2023 [facility] Start: 03-15-2023 End: 03-15-2023 ambulatory Yeyo ROWE [facility] [employer] Other Start: 03-15-2023 Office outpatient vi sit 25 minutes Teresa Lynch [facility] Start: 03-10-2023 End: 03-10-2023 ambulatory Teresa Lynch Other [facility] [employer] Other Start: 03-10-2023 Telephone encounter Teresa Lynch [facility] Start: 02-15-2023 Office outpatient vi sit 15 minutes Teresa Lynch Work Phone: [facility] 250 DO Work Phone: Start: 02-15-2023 ambulatory Dolores Pickard Facility:[id number] Start: 02-14-2023 End: 02-14-2023 Patient encounter procedure Yeyo ROWE [facility] Start: 02-08-2023 End: 02-08-2023 Patient encounter procedure Yeyo ROWE [facility] Start: 01-30-2023 End: 01-30-2023 Patient encounter procedure Yeyo ROWE [facility] [place] Start: 01-25-[address] Teresa Lynch Facility:[id number] Start: 01-17-2023 End: 01-17-2023 ambulatory Teresa Lynch Other [facility] Other Start: 01-17-2023 Telephone encounter Teresa Lynch [facility] Start: 01-11-2023 Office outpatient vi sit 25 minutes Teresa Lynch Work Phone: [facility] 600 DO Work Phone: Start: 01-11-2023 ambulatory Dolores Pickard Facility:1 [id number] Start: 12-28-2022 End: 12-28-2022 Patient encounter procedure Yeyo R ROWE [facility] [place] Start: 12-01-2022 End: 12-01-2022 ambulatory Teresa Lynch Other [facility] Other Start: 12-01-2022 Office outpatient vi sit 25 minutes Teresa Lynch [facility] Start: 11-23-2022 End: 11-23-2022 Patient encounter procedure Yeyo R ROWE [facility] [place] Start: 10-07-2022 End: 10-07-2022 ambulatory Teresa Lynch Other [facility] Other Start: 10-07-2022 Telephone encounter Teresa Lynch [facility] Start: 09-27-2022 End: 09-27-2022 ambulatory DO Teresa Lynch Work Phone: [facility] Work Phone: Start: 09-27-2022 End: 09-27-2022 Patient encounter procedure DO Teresa Lynch Work Phone: [facility] [place] Work Phone: Start: 09-21-2022 End: 09-21-2022 ambulatory Teresa Lynch Other [facility] Other Start: 09-21-2022 Telephone encounter Teresa Lynch [facility] Start: 09-14-2022 End: 09-14-2022 ambulatory Teresa Lynch Other [facility] Other Start: 09-14-2022 Telephone encounter Teresa Rory [facility] [place] Start: 09-02-2022 End: 09-02-2022 Patient encounter procedure DO Teresa Lynch Work Phone: [facility] [place] Work Phone: Start: 08-25-2022 End: 08-25-2022 ambulatory Doris Barnes Other [facility] Other Start: 08-25-2022 Telephone encounter Doris Barnes [facility] [place] Start: 08-22-2022 End: 08-22-2022 ambulatory Teresagorge Lynch Other [facility] Other Start: 08-22-2022 Telephone encounter Teresa Lynch [facility] [place] Start: 08-05-2022 End: 08-05-2022 ambulatory Teresa Lynch Other [facility] Other Start: 08-05-2022 Telephone encounter Teresa Rory [facility] [place] Start: 08-04-2022 End: 08-04-2022 ambulatory Teresa Fraustojoe Other [facility] Other Start: 08-04-2022 Telephone encounter Teresa Lynch [facility] [place] Start: 07-28-2022 End: 07-28-2022 ambulatory Teresa Lynch Other [facility] Other Start: 07-28-2022 Telephone encounter Teresa Lynch [facility] [place] Start: 07-25-2022 End: 07-25-2022 ambulatory Teresa Lynch Other [facility] Other Start: 07-25-2022 Nursing evaluation o f patient and report Teresa Lynch [facility] [place] Start: 07-19-2022 End: 07-19-2022 ambulatory Teresa Lynch Other [facility] Other Start: 07-19-2022 Telephone encounter Teresa Lynch [facility] [place] Start: 07-15-2022 End: 07-15-2022 ambulatory Teresa Lynch Other [facility] Other Start: 07-15-2022 Telephone encounter [facility] Start: 07-13-2022 End: 07-13-2022 ambulatory Teresa Lynch Other [facility] Other Start: 07-13-2022 Nursing evaluation o f patient and report Teresa Lynch [facility] Start: 07-12-[address] Raulito [facility]ierrez [facility] Facility: Start: 07-05-2022 End: 07-05-2022 ambulatory Teresa Lynch Other [facility] Other Start: 07-05-2022 Telephone encounter Teresa Lynch [facility] Start: 07-05-2022 Rx Renewal Teresa Lynch Work Phone: [facility] 250 DO Work Phone: Start: 07-04-2022 End: 07-04-2022 ambulatory Teresa Lynch Other [facility] Other Start: 07-04-2022 Office outpatient vi sit 25 minutes [facility] Start: 06-30-2022 End: 06-30-2022 ambulatory Teresa Lynch Other [facility] Other Start: 06-30-2022 Telephone encounter [facility] Start: 05-25-2022 End: 05-25-2022 ambulatory Teresa Lynch Other [facility] Other Start: 05-25-[address] [facility] [place] Start: 04-25-2022 End: 04-25-2022 ambulatory Teresa Lynch Other [facility] Other Start: 04-25-[address] Lynch [facility] [place] Start: 04-19-2022 End: 04-19-2022 ambulatory Teresa Lynch Other [facility] Other Start: 04-19-2022 [address] Teresa Lynch [facility] [place] Start: 03-22-2022 End: 03-22-2022 ambulatory Teresa Lynch Other [facility] Other Start: 03-22-2022 [address] Teresa Lynch [facility] [place] Start: 03-01-2022 End: 03-01-2022 ambulatory Teresa Lynch Other [facility] Other Start: 03-01-2022 Telephone encounter Teresa Lynch [facility] [place] Start: 02-18-2022 End: 02-18-2022 ambulatory Teresa Lynch Other [facility] Other Start: 02-18-2022 [address] Teresa Lynch [facility] [place] Start: 02-15-2022 End: 02-15-2022 ambulatory Verona Whaley Other [facility] Other Start: 02-15-2022 Office outpatient vi sit 25 minutes Teresa Lynch [facility] [place] Start: 02-15-2022 Telephone encounter Verona Whaley [facility] Start: 01-21-2022 End: 01-21-2022 ambulatory Teresa Rory Other [facility] Other Start: 01-21-2022 Tele[address] Teresa Lynch [facility] [place] Start: 01-19-2022 End: 01-19-2022 ambulatory Teresa Lynch Other [facility] Other Start: 01-19-[address] Lynch [facility] [place] Start: 01-13-2022 End: 01-13-2022 ambulatory Teresa Lynch Other [facility] Other Start: 01-13-2022 Telephone encounter Teresa Lynch [facility] [place] Start: 12-23-2021 End: 12-23-2021 ambulatory Teresagorge Lynch Other [facility] Other Start: 12-23-2021 Telephone encounter Teresa Lynch [facility] [place] Start: 11-24-2021 End: 11-24-2021 ambulatory Teresa Lynch Other [facility] Other Start: 11-24-2021 Telephone encounter [facility] Start: 11-03-2021 Rx Renewal Teresa Lynch Work Phone: [facility] 250 DO Work Phone: Start: 10-26-2021 Office outpatient vi sit 25 minutes Teresa Lynch Work Phone: [facility] 250 DO Work Phone: Start: 10-25-2021 End: 10-25-2021 ambulatory Teresa Lynch Other [facility] Other Start: 10-25-2021 Telephone encounter Teresa Lynch [facility] [place] Start: 10-19-2021 End: 10-19-2021 ambulatory Aziz Bakhous Other [facility] Other Start: 10-19-2021 Office outpatient vi sit 25 minutes Aziz Amelies [facility] Start: 10-18-2021 End: 10-18-2021 ambulatory Azjuan Kinseys Other [facility] Other Start: 10-18-2021 Telephone encounter Amina Kinseys [facility] Start: 10-12-2021 End: 10-13-2021 ambulatory DUARTE HENRY . Facility: Start: 10-08-2021 End: 10-08-2021 ambulatory Teresa Lynch Other [facility] Other Start: 10-08-2021 Telephone encounter Teresa Lynch [facility] [place] Start: 09-22-2021 End: 09-22-2021 ambulatory Teresa Lynch Other [facility] Other Start: 09-22-2021 Telephone encounter Teresa Lynch [facility] [place] Start: 09-21-2021 End: 09-21-2021 ambulatory Teresa Lynch Other [facility] Other Start: 09-21-2021 Telephone encounter Teresa Lynch [facility] [place] Start: 08-09-2021 End: 08-09-2021 ambulatory Teresa Lynch Other [facility] Other Start: 08-09-2021 Telephone encounter Teresa Lynch [facility] [place] Start: 08-02-2021 End: 08-02-2021 ambulatory Teresa Lynch Other [facility] Other Start: 08-02-2021 Telephone encounter Teresa Lynch [facility] [place] Start: 07-27-2021 End: 07-27-2021 ambulatory Teresa Lynch Other [facility] Other Start: 07-27-2021 Office outpatient vi sit 25 minutes Teresa Lynch [facility] Start: 06-23-2021 End: 06-23-2021 ambulatory Teresagorge Lynch Other [facility] Other Start: 06-23-2021 Telephone encounter Teresa Lynch [facility] Start: 06-22-2021 Rx Renewal Teresa Lynch Work Phone: [facility] 250 DO Work Phone: Start: 05-03-2021 End: 05-03-2021 ambulatory Teresagorge Lynch Other [facility] Other Start: 05-03-2021 Telephone encounter Teresa Lynch [facility] Procedures Date Procedure Procedure Detail Performing Clinician [...] [id number] CATRACHO WHITE MD [id number] MEDICAL DIRECTORCLIFFORD LOBATO M.D. Start: 03-04-2024 X-ray [...] Status post partial amputation of right foot ([facility]) Guero Tam DO Work Phone: [...] atus post partial amputation of right foot ([facility]) Guero Chacon [employer] Work Phone: History of amputation of foot 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 ([facility]) Guero Chacon [employer] Work Phone: History of amputation of foot 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 ([facility]) Guero G [employer] Work Phone: History of amputation of foot 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 ([facility]) Guero Chacon [employer] Work Phone: History of amputation of foot 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 ([facility]) Guero Chacon [employer] Work Phone: History of amputation of foot 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 ([facility]) Guero Chacon [employer] Work Phone: History of amputation of foot 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 ([facility]) Guero Chacon [employer] Work Phone: History of percutane ous transluminal [...] DTaP/Tdap/Td Vaccines (2 - Td or Tdap) [facility] Start: 10-10-2025 Echocardiography Echocardiogram [facility] Start: 04-26-2025 Tobacco Counseling Tobacco Counseling [facility] Start: 03-15-2025 Adult BMI Screening Adult BMI Screening [facility] Start: 03-12-2025 End: 03-12-2025 Patient encounter procedure 03/12/2025 3:50 PM EDT Office Visit [facility] [address] [facility] [address] [place] [phone] Bernard De La Cruz MD [address] [facility] [address] [place] [address] [facility] Start: 02-28-2025 Adult BMI Screening Adult BMI Screening [facility] Start: 02-28-2025 Tobacco Screening Tobacco Screening [facility] Start: 02-27-2025 Adult BMI Screening Adult BMI Screening [facility] Start: 02-03-2025 COVID-19 Vaccine ( season) COVID-19 Vaccine ( season) [facility] Start: 02-03-2025 Influenza vaccination [facility] Start: 01-17-2025 Adult BMI Screening Adult BMI Screening [facility] Start: 01-17-2025 Tobacco Screening Tobacco Screening [facility] Start: 12-20-2024 Adult BMI Screening Adult BMI Screening [facility] Start: 12-20-2024 Tobacco Screening Tobacco Screening [facility] Start: 11-29-2024 Adult BMI Screening Adult BMI Screening [facility] Start: 11-29-2024 Tobacco Screening Tobacco Screening [facility] Start: 11-13-2024 Adult BMI Screening Adult BMI Screening [facility] Start: 11-09-2024 Adult BMI Screening Adult BMI Screening [facility] Start: 11-09-2024 Tobacco Screening Tobacco Screening [facility] Start: 11-07-2024 Tobacco Screening Tobacco Screening [facility] Start: 11-06-2024 Depression Screening Depression Screening [facility] Start: 11-05-2024 Patient referral [facility] Work Phone: Start: 10-24-2024 Adult BMI Screening Adult BMI Screening [facility] Start: 10-21-2024 End: 10-21-2024 Patient encounter procedure 10/21/2024 8:00 AM EDT Office Visit [facility] [address] [place] [address] Dolores Pickard, ANIMAL FEEDER-PLATFORM MATERIAL HANDLER MANAGER [address] [place] [address] [facility] Start: 10-17-2024 Adult BMI Screening Adult BMI Screening [facility] Start: 10-17-2024 Tobacco Screening Tobacco Screening [facility] Start: 10-13-2024 [facility] Start: 10-12-2024 [facility] Start: 10-11-2024 End: 10-11-2024 [facility] Start: 10-10-2024 End: 10-10-2024 [facility] Start: 10-10-2024 Hospital admission [facility] Start: 10-10-2024 Referral to peoplesoft hcm consultant [facility] Start: 08-30-2024 Patient referral [facility] Work Phone: Start: 08-13-2024 [facility] Start: 08-12-2024 [facility] Start: 08-11-2024 End: 08-11-2024 [facility] Start: 08-11-2024 Physical therapy procedure [facility] Start: 08-11-2024 Referral to occupational therapist [facility] Start: 08-11-2024 Hospital admission [facility] Start: 08-11-2024 Referral to family physician [facility] Start: 08-11-2024 CT angiography of head [facility] Start: 08-11-2024 CT angiography of neck vessels [facility] Start: 08-11-2024 CT Head WO contrast [facility] Start: 08-11-2024 CT of head without contrast CT head stroke alert wo con [facility] Start: 08-11-2024 Plain chest X-ray XR chest 1V portable [facility] Start: 08-11-2024 XR Chest Single view [facility] Start: 08-11-2024 End: 08-11-2024 [facility] Start: 04-23-2024 [facility] Start: 03-13-2024 [facility] Start: 03-11-2024 End: 03-11-2024 Patient encounter procedure 03/11/2024 8:40 AM EDT Office Visit [place] [id number] [place] [phone] Bernard De La Cruz MD [address] [place] [address] [facility] Start: 03-10-2024 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 [facility] Start: 03-09-2024 Comprehensive metabolic 2000 panel - Serum or Plasma [facility] Start: 03-09-2024 End: 03-09-2024 [facility] Start: 03-08-2024 Referral to psychiatrist [facility] Start: 03-08-2024 Referral to neurologist [facility] Start: 03-08-2024 End: 03-08-2024 [facility] Start: 03-08-2024 Hospital admission [facility] Start: 03-08-2024 Plain chest X-ray [facility] Start: 03-08-2024 Telemedicine consultation with patient [facility] Start: 03-08-2024 Blood culture for bacteria, including anaerobic screen [facility] Start: 03-06-2024 [facility] Start: 03-05-2024 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 [facility] Start: 03-04-2024 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 [facility] Start: 03-03-2024 Referral to neurologist [facility] Start: 03-03-2024 [facility] Start: 03-03-2024 Hospital admission [facility] Start: 02-29-2024 End: 02-29-2024 Patient encounter procedure 02/29/2024 9:30 AM EDT Office Visit [facility] [address] [place] [phone] Mike Montes MD [address], [facility] [address] [place] [address] [facility] Start: 02-04-2024 COVID-19 Vaccine ( season) COVID-19 Vaccine ( season) [facility] Start: 02-04-2024 COVID-19 Vaccine ( season) COVID-19 Vaccine () [facility] Start: 02-04-2024 Influenza vaccination [facility] Start: 12-21-2023 End: 12-21-2023 Patient encounter procedure 12/21/2023 8:40 AM EDT Office Visit [facility] [address] [place] [address] Mike Montes MD [address], [address] [place] [address] [facility] Start: 11-30-2023 End: 11-30-2023 Patient encounter procedure 11/30/2023 8:50 AM EDT Office Visit [facility] [address] [place] [address] Mike Montes MD [address], [address] [address] [facility] Start: 11-23-2023 End: 11-23-2023 Patient encounter procedure [facility] Start: 11-23-2023 End: 11-23-2023 Patient encounter procedure 11/23/2023 9:40 AM EDT Office Visit [facility] [place] [address] Mike Montes MD [address], [address] [address] [facility] Start: 11-15-2023 FUV, Provider: Raulito Inman, Status: Pen, Time: 2:40 PM FUV, Provider: Raulito Inman, Status: Pen, Time: 2:40 PM [place] [address] DO Work Phone: Start: 11-07-2023 End: 11-07-2023 Admission to same day surgery center 11/07/2023 3:00 PM EDT - 11/07/2023 4:00 PM EDT Surgery [facility] Cardiac Cath [address] [place] [phone] Mike Montes MD [address], [address] [address] Vascular Invasive Right lower extremity angiogram with intervention [facility] Comment on above: Vascular Invasive Right lower extremity angiogram with intervention Start: 11-07-2023 Subsequent hospital visit by physician 11/07/2023 3:00 PM EDT Hospital Encounter [facility] [address] [place] [address] Mike Montes MD [address], [address] [address] 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 ([facility] - Cardiac Cath Comment on above: Critical limb ischemia of right lower ex tremity with gangrene ([facility]) Start: 10-18-2023 End: 10-17-2024 CTA Abdominal Aorta and Bilateral Runoff Vessels W contrast IV [facility] Comment on above: Expected: 10/18/2023, Expires: Start: 10-18-2023 End: 10-17-2024 US.doppler Extremity arteries - bilateral for physiologic artery study [employer] Work Phone: Comment on above: Expected: 10/18/2023, Expires: Start: 10-02-2023 Acid Fast Culture Acid Fast Culture [facility] Start: 09-30-2023 Blood Culture 1 Blood Culture 1 [facility] Start: 09-30-2023 Blood Culture 2 Blood Culture 2 [facility] Start: 09-30-2023 Wound Culture Wound Culture [facility] Start: 09-21-2023 Abscess Culture Abscess Culture [facility] Start: 08-10-2023 Acid Fast Culture Acid Fast Culture [facility] Start: 08-05-2023 Wound Culture Wound Culture [facility] Start: 07-12-2023 Duplex scan of lower limb veins US venous duplex LE BI [facility] Start: 07-12-2023 US Lower extremity vein - bilateral [facility] Start: 07-12-2023 Duplex scan veins of upper limb US venous duplex UE LT [facility] Start: 07-12-2023 US Upper extremity vein - left [facility] Start: 02-15-2023 FUV, Provider: Dolores Velazquez, Status: Pen, Time: 10:00 AM FUV, Provider: Dolores Velazquez, Status: Pen, Time: 10:00 AM [facility] 600 DO Work Phone: Start: 02-03-2023 COVID-19 Vaccine () COVID-19 Vaccine () [facility] Start: 01-25-2023 STRESS NUC, Provider: [facility] NUCLEAR 01,[id number], Status: Pen, Time: 8:30 AM STRESS NUC, Provider: [place] [facility] NUCLEAR 01,[id number], Status: Pen, Time: 8:30 AM -[facility] 600 DO Work Phone: Start: 07-12-2022 FUV, Provider: Raulito Inman, Status: Pen, Time: 9:20 AM FUV, Provider: Raulito Inman, Status: Pen, Time: 9:20 AM -[facility] 250 DO Work Phone: Start: 10-26-2021 FUV, Provider: Raulito Inman, Status: Pen, Time: 9:30 AM FUV, Provider: Raulito Inman, Status: Pen, Time: 9:30 AM [facility] 250 DO Work Phone: Start: 03-05-2019 Pneumococcal vaccination Pneumococcal Vaccine (2 of 2 - PCV) [facility] Start: 03-05-2019 Pneumococcal Vaccine: Pediatrics (0 to 5 Years) and At-Risk Patients (6 to 64 Years) (2 of 2 - PCV) Pneumococcal Vaccine: Pediatrics (0 to 5 Years) and At-Risk Patients (6 to 64 Years) (2 of 2 - PCV) [facility] Start: 2015 Administration of varicella zoster vaccine Zoster (Shingles) Vaccine (1 of 2) [facility] Start: 2015 Prostate specific antigen measurement PSA Prostate Cancer Screening [facility] Start: 2015 Zoster Vaccines (1 of 2) Zoster Vaccines (1 of 2) [facility] Start: 1987 DTaP/Tdap/Td Vaccines (1 - Tdap) DTaP/Tdap/Td Vaccines (1 - Tdap) [facility] Start: 1984 DTaP,Tdap and Td Vaccines (1 - Tdap) DTaP,Tdap and Td Vaccines (1 - Tdap) [facility] Start: 1984 Hepatitis B Vaccines (1 of 3 - 19+ 3-dose series) Hepatitis B Vaccines (1 of 3 - 19+ 3-dose series) [facility] Start: 1984 Urine screening for protein Diabetes: Urine Protein Screening [facility] Start: 1983 Adult BMI Follow Up Plan Adult BMI Follow Up Plan [facility] Start: 1983 Adult BMI Screening Adult BMI Screening [facility] Start: 1983 Diabetic foot examination Diabetic Foot Exam [facility] Start: 1983 Hepatitis C screening Hepatitis C Screening [facility] Start: 1977 Depression Screening Depression Screening [facility] Start: 1977 Tobacco Screening Tobacco Screening [facility] Start: 1975 Diabetic foot examination Diabetes: Foot Exam [facility] Start: 1975 Glaucoma screening Diabetes: Retinopathy Screening [facility] Start: 1966 MMR Vaccines (1 of 1 - Standard series) MMR Vaccines (1 of 1 - Standard series) [facility] Start: 1965 Creatinine measurement Creatinine Level [facility] Start: 1965 Echocardiography Echocardiogram [facility] Start: 1965 Glaucoma screening Diabetic Ophthalmology Exam [facility] Start: 1965 Hemoglobin A1c measurement Diabetes: Hemoglobin A1C [facility] Start: 1965 HIV screening HIV Screening [facility] Start: 1965 Lipid panel Lipid Panel [facility] Start: 1965 Potassium measurement Potassium Level [facility] Start: 1965 Screening for malignant neoplasm of colon [facility] Start: 1965 Tobacco Counseling Tobacco Counseling [facility] Start: 1965 Urine screening for protein Diabetes: Urine Protein Screening [facility] Start: 1965 Yearly Adult Physical Yearly Adult Physical [facility] Bacteria identified in Blood by Culture [facility] Comprehensive metabo lic 1999 panel - Serum or Plasma [facility] Comprehensive metabo lic 1999 panel - Serum or Plasma [facility] End: 10-17-2024 Creatinine includes GFR, serum Creatinine includes GFR, serum Lab Routine 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 ([facility]) 1 Occurrences starting 10/18/2023 until 10/17/2024 [facility] Comment on above: 1 Occurrences starting 10/18/2023 until 10/17/2024 Microalbumin [Mass/v olume] in Urine [facility] Patient Education [facility] Work Phone: Patient referral [facility] Work Phone: Renal function 1999 panel - Serum or Plasma [facility] Renal function 1999 panel - Serum or Plasma [facility] End: 01-17-2024 [place] [facility] Work Phone: Comment on above: Once for 1 Occurrences starting 01/17/20 24 until 01/17/2024 [facility] Immunizations Immunization Date Immunization Notes Care Provider Sachin pettit 11-13-2020 Pfizer-BioNTech COVID-19 Vacc 30 MCG/0.3ML Intramuscular Suspension Teresa Lynch Work Phone: [facility] 10-23-2020 Pfizer-BioNTech COVID-19 Vacc 30 MCG/0.3ML Intramuscular Suspension Teresa Lynch Work Phone: [facility] 01-14-2019 influenza, seasonal, injectable Teresa Lynch Other [facility] 01-14-2019 influenza virus vaccine, unspecified formulation Yeyo ROWE [facility] 04-02-2018 influenza virus vaccine, unspecified formulation Yeyo ROWE [facility] 04-02-2018 influenza, injectabl e, quadrivalent, preservative free DO Teresa Lynch Work Phone: [facility] 03-05-2018 influenza virus vaccine, unspecified formulation Teresa Lynch Work Phone: [facility] 250 DO Work Phone: 03-05-2018 pneumococcal polysaccharide vaccine, 23 valent Teresa Lynch Work Phone: [facility] 250 DO Work Phone: 03-07-2016 influenza virus vaccine, unspecified formulation Yeyo ROWE [facility] 03-07-2016 influenza, injectabl e, quadrivalent, preservative free Teresa Lynch Work Phone: [facility] 02-22-2016 pneumococcal polysaccharide vaccine, 23 valent Teresa Lynch Work Phone: [facility] NEGATED: Highlighted row has not occurred!08-02-2024 influenza virus vaccine, unspecified formulation MARYBEL VANG [facility] Payers Date Payer Category Payer Medicaid (Managed Care) [facility] [id number] 2023 Self-pay [id number] 2023 Medicaid [id number] 2023 Private Health Insurance [id number] 2022 Private Health Insurance [id number] 2022 Private Health Insurance [id number] 2022 Medicaid [id number] 2022 Unknown 1965 Unknown [id number] 2.16.840.1.144636.3.579.2. 593 1965 Unknown [id number] 2.16.840.1.348597.3.579.2. 1068 1965 Unknown [id number] 2.16.840.1.340661.3.579.2. 356 1965 Unknown [id number] 2.16.840.1.465601.3.579.2. 356 1965 Unknown [id number] 2.16.840.1.874046.3.579.2. 356 1965 Unknown [id number] 2.16.840.1.917128.3.579.2. 1286 1965 Unknown [id number] 2.16.840.1.086186.3.579.2. 1286 1965 Unknown [id number] 2.16.840.1.573177.3.579.2. 1286 1965 Unknown [id number] 2.16.840.1.626770.3.579.2. 1286 1965 Unknown [id number] 2.16.840.1.029268.3.579.2. 1286 1965 Unknown [id number] 2.16.840.1.492979.3.579.2. 1286 1965 Unknown [id number] 2.16.840.1.723199.3.579.2. 1286 1965 Unknown [id number] 2.16.840.1.784472.3.579.2. 1286 1965 Unknown [id number] 2.16.840.1.568403.3.579.2. 727 1965 Unknown [id number] 2.16.840.1.763701.3.579.2 1965 Unknown [id number] 2.16.840.1.850565.3.579. 1965 Unknown [id number] 2.16.840.1.420329.3.579.2 1965 Unknown [id number] 2.16.840.1.330401.3.579. 1965 Unknown [id number] 2.16.840.1.888275.3.579. 1965 Unknown [id number] 2.16.840.1.427535.3.579. 1965 Unknown [id number] 2.16.840.1.202128.3.579. 1965 Unknown [id number] 2.16.840.1.063219.3.579. 1965 Unknown [id number] 2.16.840.1.260765.3.579. 1965 Unknown [id number] 2.16.840.1.350172.3.579. 1965 Unknown [id number] 2.16.840.1.332674.3.579. 1965 Unknown [id number] 2.16.840.1.821116.3.579. 1965 Unknown [id number] 2.16.840.1.551192.3.579.2 1965 Unknown [id number] 2.16.840.1.598178.3.579. 1965 Unknown [id number] 2.16.840.1.920830.3.579. 1965 Unknown [id number] 2.16.840.1.413005.3.579. 1965 Unknown [id number] 2.16.840.1.456582.3.579.2. 1965 Unknown [id number] 2.16.840.1.614625.3.579.2. 1965 Unknown [id number] 2.16.840.1.468456.3.579.2. 1965 Unknown [id number] 2.16.840.1.408201.3.579.2. 1965 Unknown [id number] 2.16.840.1.830256.3.579.2. 1965 Unknown [id number] 2.16.840.1.542556.3.579.2. 1965 Unknown [id number] 2.16.840.1.667254.3.579.2. 1965 Unknown [id number] 2.16.840.1.728067.3.579.2. 1965 Unknown [id number] 2.16.840.1.769933.3.579.2 1965 Unknown [id number] 2.16.840.1.251707.3.579.2 1965 Unknown [id number] 2.16.840.1.833408.3.579.2. 1285 1965 Unknown [id number] 2.16.840.1.379762.3.579.2. 1285 1965 Unknown [id number] 2.16.840.1.848865.3.579.2. 1285 1965 Unknown [id number] 2.16.840.1.325506.3.579.2. 1285 1965 Unknown [id number] 2.16.840.1.851622.3.579.2. 1285 1965 Unknown [id number] 2.16.840.1.316885.3.579.2. 1286 1965 Unknown [id number] 2.16.840.1.885948.3.579.2. 727 1965 Unknown [id number] 2.16.840.1.819861.3.579.2. 727 1965 Unknown [id number] 2.16.840.1.931873.3.579.2. 727 1965 Unknown [id number] 2.16.840.1.701101.3.579.2. 1244 1965 Unknown [id number] 2.16.840.1.260090.3.579.2. 727 1965 Unknown [id number] 2.16.840.1.981868.3.579.27 1965 Unknown [id number] 2.16.840.1.326262.3.579.2. 1965 Unknown [id number] 2.16.840.1.609987.3.579.2. 727 1965 Unknown [id number] 2.16.840.1.459564.3.579.2. 1245 1965 Unknown [id number] 2.16.840.1.441522.3.579.2. 1245 1965 Unknown [id number] 2.16.840.1.348920.3.579.2. 1245 1965 Unknown [id number] 2.16.840.1.492844.3.579.2. 1245 1965 Unknown [id number] 2.16.840.1.884717.3.579.2. 1246 1959 Unknown [id number] 2.16.840.1.802130.19 Unknown [id number] 2.16.840.1.892865.3.579.2. 531 Unknown [id number] 2.16.840.1.832778.3.579.2. 531 Unknown [id number] 2.16.840.1.266571.3.579.2. 531 Unknown [id number] 2.16.840.1.278042.3.579.2. 531 Unknown [id number] 2.16.840.1.495780.3.579.2. 531 Unknown [id number] 2.16.840.1.114904.3.579.2. 531 Unknown [id number] 2.16.840.1.403680.3.579.2. 531 Unknown [id number] 2.16.840.1.501834.3.579.2. 531 Social History Date Type Detail Facility Start: 08-08-2023 End: 01-01-2024 Caffeine use Caffeine use idio Other Comment on above: 2 cups coffee, 4-6 c ups tea daily, occaional soda; qauit 07/2020; Start: 08-08-2023 End: 01-01-2024 Sex Assigned At [facility] Start: 07-14-2020 End: 10-10-2024 Tobacco smoking status NHIS Smoker (finding) [facility] Start: 1965 Sex Assigned At Male F [facility] Start: 11-23-2022 End: 09-27-2024 Tobacco smoking status Heavy tobacco smoker (finding) [facility] Start: 04-30-2022 Tobacco smoking status Never [facility] Start: 10-24-2023 Tobacco smoking stat us NHIS Ex-smoker [facility] Start: 10-05-1981 End: 06-05-2020 History of tobacco use Cigarette Smoker [facility] Start: 10-24-2023 End: 11-07-2023 Tobacco use and exposure Smokeless tobacco non-user [facility] Work Phone: Start: 10-24-2023 End: 01-01-2024 Alcoholic beverage intake Lifetime non-drinker (finding) [facility] Work Phone: Start: 1965 Sex assigned at Not on file P [facility] Start: 10-14-2023 End: 01-17-2024 Exposure to SARS-CoV-2 (event) Not sure [facility] Start: 03-10-2024 Tobacco smoking stat us NHIS Unknown if ever smoked [facility] Start: 09-16-2009 End: 04-23-2024 Sex Male (finding) [facility] Start: 10-05-1981 End: 11-07-2023 Tobacco smoking status NHIS Smokes tobacco daily [employer] Start: 11-10-2023 End: 02-29-2024 Alcoholic beverage intake Ex-drinker (finding) [employer] Has the [employer], or [employer] threatened to shut off services in your home in past 12Mo No [facility] How often to you hav e a drink containing alcohol? 2-4 times a month [employer] How many standard drinks containing alcohol do you have on a typical day? 1 or 2 [facility] How often do you hav e 6 or more drinks on 1 occasion? Never [employer] Start: 08-12-2024 SDOH Follow up SDOH Follow up [facility] Work Phone: Sexual Orientation [facility] Medical Equipment Procedure Code Equipment [...] extremity runoff FDA Start: 09-27-2018 Start: 12-16-2013 [id number] FDA Start: 07-14-2020 Insulin Syringe,Safety Needle 1 mL 30 gauge x 1/2 syringe Start: 03-29-2024 Pen Needle, Diabetic (Comfort Ez Pen [place]) 32 gauge x 5/32 needle Start: 04-15-2024 Insulin Syringe,Safety Needle 1 mL 30 gauge x 1/2 syringe Start: 03-29-2024 Pen Needle, Diabetic (Comfort Ez Pen [place]) 32 gauge x 5/32 needle Start: 04-15-2024 LLE Angiogram Unknown 01/08/24 Non Biological Left Femoral Artery/Vein FDA Start: 01-08-2024 LLE Angiogram Unknown 01/08/24 Non Biological Left Femoral Artery/Vein FDA Start: 01-08-2024 LLE Angiogram Unknown 01/08/24 Non Biological Left Femoral Artery/Vein FDA Start: 01-08-2024 Graft Vsc 50cm 6 mm [place] Thnwl Hep Propaten Ptfe Rem Rng - [id number] Start: 11-08-2023 Comment on above: Description: RIGHT F EMORAL ARTERY Stent Vsc Epic 10mm 100mm 120cm 6fr Rdpq Otw Slf Xpd Gw - [id number] FDA Start: 11-07-2023 LLE Angiogram Unknown 01/08/24 Non Biological Left Femoral Artery/Vein FDA Start: 01-08-2024 Insulin Syringe,Safety Needle 1 mL 30 gauge x 1/2 syringe Start: 03-29-2024 Pen Needle, Diabetic (Comfort Ez Pen [place]) 32 gauge x 5/32 needle Start: 04-15-2024 Insulin Syringe,Safety Needle 1 mL 30 gauge x 1/2 syringe Start: 03-29-2024 Pen Needle, Diabetic (Comfort Ez Pen [place]) 32 gauge x 5/32 needle Start: 04-15-2024 Insulin Syringe,Safety Needle 1 mL 30 gauge x 1/2 syringe Start: 03-29-2024 Pen Needle, Diabetic (Comfort Ez Pen [place]) 32 gauge x 5/32 needle Start: 04-15-2024 Insulin Syringe,Safety Needle 1 mL 30 gauge x 1/2 syringe Start: 03-29-2024 Pen Needle, Diabetic (Comfort Ez Pen [place]) 32 gauge x 5/32 needle Start: 04-15-2024 Insulin Syringe,Safety Needle 1 mL 30 gauge x 1/2 syringe Start: 03-29-2024 Pen Needle, Diabetic (Comfort Ez Pen [place]) 32 gauge x 5/32 needle Start: 04-15-2024 Insulin Syringe,Safety Needle 1 mL 30 gauge x 1/2 syringe Start: 03-29-2024 Pen Needle, Diabetic (Comfort Ez Pen [place]) 32 gauge x 5/32 needle Start: 04-15-2024 Insulin Syringe,Safety Needle 1 mL 30 gauge x 1/2 syringe Start: 03-29-2024 Pen Needle, Diabetic (Comfort Ez Pen [place]) 32 gauge x 5/32 needle Start: 04-15-2024 [...] Facility 10-11-2024 Functional status Patient at [facility] Work Phone: 10-10-2024 Functional status Patient at [facility] Work Phone: 08-13-2024 Functional status Patient at [facility] Work Phone: 08-02-2024 Functional Status N/A [facility] 05-27-2024 Functional Status N/A [facility] 03-13-2024 Functional status Patient at [facility] Work Phone: 03-06-2024 Functional status Patient at [facility] Work Phone: 02-12-2024 Functional Status No [facility] 10-23-2023 Functional Status No [facility] 06-02-2023 Functional Status N/A [facility] 02-14-2023 Functional Status N/A [facility] 01-30-2023 Functional Status N/A [facility] 11-23-2022 Functional Status N/A [facility] Mental Status Date Assessment Result Facility 10-11-2024 Cognitive function Patient at [facility] Work Phone: 10-10-2024 Cognitive function Cognitive Sta tus Patient at Baseline [facility] Work Phone: 08-13-2024 Cognitive function Patient at Baseline [facility] Work Phone: 03-13-2024 Cognitive function Patient at Baseline [facility] Work Phone: 03-06-2024 Cognitive function Patient at Baseline [facility] Work Phone: Clinical Notes 06-23-2021 to 01-02-2025 [...] for his appointment documented in this encounter [facility] 01-02-2025 Telephone encount er Note LVM to see if patient can head over now for his appointment [facility] 11-05-2024 Hospital Discharg e instructions Ambulatory OrdersReferral to Diabetes Management Time Frame: 11/05/24, Location: None Selected [facility] Work Phone: 10-10-2024 Consult note Note Date/Time October 11, 2024 9:56am [facility] [address] [place] [address] Cardiology Consult Note Signed Patient: Myra Pickard SR MR#: [id number] : 1965 Acct:[id number] Age/Sex: 59 / M Adm Date: 5 Loc: 4 Room: [address] [place] [address] Type: ADM INOo Attending Dr: Abdullahi Canchola [...] post right below-knee amputation February 2024 in [place]. He has COPD followed by pulmonary medicine in [place]. His EKG showed no acute changes his [...] he gets seen first by his primary peoplesoft hcm consultant in the office, I emphasized to the [...] symptoms. Other review of system was unremarkable [facility] Medical History Hypokalemia Hypocalcemia Hypomagnesemia Vitamin B12 [...] mass Atrial fibrillation Atherosclerotic heart disease of [place] coronary artery with unspecified angina pectoris Anxiety Hx of exercise stress test Family history of premature CAD Reports mother had quadruple bypass at age of 45 Myocardial infarction mild Fibromyalgia Chronic back pain Sleep apnea Neuropathy Cataract Peripheral artery disease Hyperlipidemia Diabetes Hypertension Surgical History History of below-knee amputation of right lower extremity 02/2024 [facility] by Dr. Simon Hernández Vascular History of [...] flash glucose scanning reader (FreeStyle Jigar 2 [place]) #1 ea 12/28/23 [Rx Confirmed 10/10/24] flash [...] 32 gauge x 5/32 (Comfort EZ Pen [place]) #100 ea 04/15/24 [Rx Confirmed 10/10/24] hydroxyzine [...] Lymph # (Auto) 2.0 2.0 (1.00-4.8) x10E3/uL [place] # (Auto) 0.8 0.9 H (0.0-0.8) x10E3/uL [...] Code(s): I25.10 - Atherosclerotic heart disease of [place] coronary artery without angina pectoris Documented By: Pascale Arnold MD, [facility] 5 0993 Signed By: <Electronically signed by MD JOHNATHAN Arnold> 10/11/24 0956 [facility] Work Phone: 1(597) 389-190904-25-2025 NotePatient Education Urology Acute Urinary Retention, Male [...] these instructions at home: Medicines ??? Take dmam-cca-uoxxtdf and prescription medicines only as told by [...] provider. Document Revised: 02/10/2021 Document Reviewed: 02/10/2021 [employer] Patient Education ? 2023 [employer] 08-30-2024 Hospital Discharge instructionsAmbulatory Orders* Referral to Pain Management Time Frame: 08/30/24, Location: None [facility] Work Phone: 1(462) 874-252703-11-2025 [place] [address] Discharge Summary Signed Patient: Myra Pickard SR MR#: [id number] : 1965 Acct:[id number] Age/Sex: 59 / M Adm Date: 5 Loc: Room: [address] [place] [address]: Kevon Viera MD Copies to: [...] (DME) pen needle, diabetic [Comfort EZ Pen [place]] 32 gauge x 5/32 needle See Rx [...] 100 5RF Rx Instructions: As directed (DME) SnapLogicStyle Jigar 2 Sensor Kit See Rx Instructions .Route Qty: 1 0RF Rx Instructions: As directed (DME) FreeStyle Jigar 2 [place] Misc See Rx Instructions .Route Qty: 1 [...] 08/13/24 14 35 Signed By: 08/13/24 1439 [facility]03-11-2025 Progress note Author Maurice Francis [facility] Note Date/Time August 13, 2024 11: 06am [facility] [address] [place] [address] Nephrology Progress Note Signed Patient: Myra Pickard SR MR#: [id number] : 1965 Acct:[id number] Age/Sex: 59 / M Adm Date: 5 Loc: Room: [address] [place] [address] Type: ADM IN Attending Dr: Kevon Viera [...] Skin: No rashes , warm to touch 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,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, 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 Musculoskeletal: No swelling [...] 25 Mg Tablet) 25 mg PO HS [facility] Stop: 08/11/25 21:59 Last Admin: 08/12/24 [...] 1,000 Mcg/Ml Vial) 1,000 mcg IM DAILY [facility] Stop: 08/17/24 09:01 Last Admin: 08/13/24 [...] 5,000 Unit/Ml Vial) 5,000 unit SUBCUT Q12HR [facility] Stop: 08/11/25 08:59 Last Admin: 08/13/24 08:25 Dose: 5,000 unit Hydralazine HCl (Hydralazine 20 Mg/Ml Vial) 10 mg IV-PUSH Q4H PRN PRN Reason: if SBP > 185 Stop: 08/11/25 05:38 Ferric Sodium Gluconate Complex 250 mg/ Sodium Chloride 270 mls @ 135 mls/hr IVQAM [facility] Stop: 08/14/24 10:59 Last Admin: 08/12/24 09:19 Dose: 135 mls/hr Insulin Aspart (Insulin Aspart 300 Units/3 Ml) 0 units SUBCUT TID.WM.[facility]; Protocol Stop: 08/11/25 07:59 Last Admin: 08/13/24 08:25 Dose: 1 units Ipratropium Nora (Ipratropium Nora 0.5 Mg/2.5 Ml Vial.Neb) 0.5 mg INHALATION QID.RESP [facility] Stop: 08/11/25 07:59 Last Admin: 08/13/24 07:54 Dose: 0.5 mg Isosorbide Mononitrate (Isosorbide Mononitrate 24hr Er 30 Mg Tab.Er.24h) 30 mg PO DAILY [facility] Stop: 08/11/25 08:59 Last Admin: 08/13/24 08:25 Dose: 30 mg Metoprolol Tartrate (Metoprolol Tartrate 100 Mg Tablet) 100 mg PO BID [facility] Stop: 08/11/25 08:59 Last Admin: 08/13/24 [...] weeks Documented By: Maurice Francis MD 08/13/24 5087 Signed By: <Electronically signed by Maurice Francis MD> 08/13/24 [facility] Work Phone: 1(147) 200-174903-11-2025 [place] [address] Nephrology Progress Note Signed Patient: Myra Pickard SR MR#: [id number] : 1965 Acct:[id number] Age/Sex: 59 / M Adm Date: 5 Loc: 3T Room: [address] [place] [address] Type: ADM IN Attending Dr: Kevon Viera [...] Skin: No rashes , warm to touch 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,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, 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 Musculoskeletal: No swelling [...] Chloride 270 mls @ 135 mls/hr IVQAM [facility] Stop: 08/14/24 10:59 Last Admin: 08/12/24 09:19 Dose: 135 mls/hr Insulin Aspart (Insulin Aspart 300 Units/3 Ml) 0 units SUBCUT TID.WM.HS [facility]; Protocol Stop: 08/11/25 07:59 Last Admin: 08/13/24 08:25 Dose: 1 units Ipratropium Nora (Ipratropium Nora 0.5 Mg/2.5 Ml Vial.Neb) 0.5 mg INHALATION QID.RESP [facility] Stop: 08/11/25 07:59 Last Admin: 08/13/24 07:54 Dose: 0.5 mg Isosorbide Mononitrate (Isosorbide Mononitrate 24hr Er 30 Mg Tab.Er.24h) 30 mg PO DAILY [facility] Stop: 08/11/25 08:59 Last Admin: 08/13/24 08:25 Dose: 30 mg Metoprolol Tartrate (Metoprolol Tartrate 100 Mg Tablet) 100 mg PO BID [facility] Stop: 08/11/25 08:59 Last Admin: 08/13/24 08:25 Dose: 100 mg Pantoprazole Sodium (Pantoprazole 40 Mg Tablet.Dr) 40 mg PO BID [facility] Stop: 08/11/25 08:59 Last Admin: 08/13/24 08:25 Dose: 40 mg Pregabalin (Pregabalin 75 Mg Capsule) 75 mg PO TID [facility] Stop: 02/07/25 08:59 Last Admin: 08/13/24 [...] MD 08/13/24 0855 Signed By: 08/13/24 1106 [facility]03-10-2025 Progress note Author Kevon Viera [facility] Note Date/Time August 12, 2024 3:1 6pm [facility] [address] [place] [address] Hospitalist Progress Note Signed Patient: Myra Pickard SR MR#: [id number] : 1965 Acct:[id number] Age/Sex: 59 / M Adm Date: 5 Loc: Room: [address] [place] [address] Type: ADM IN Attending Dr: Kevon Viera [...] 1 units TID.WM.[facility] Administration Protocol Ipratropium Nora 0.5 mg 08/11/24 08:00 08/12/24 12:31 Ipratropium Nora 0.5 Mg/2.5 Ml Vial.Neb INHALATION 08/11/25 07:59 [...] <Electronically signed by Kevon Viera MD> 08/12/24 [facility] Work Phone: 1(266) 534-545803-10-2025 [place] [address] Hospitalist Progress Note Signed Patient: Myra Pickard SR MR#: [id number] : 1965 Acct:[id number] Age/Sex: 59 / M Adm Date: 5 Loc: Room: [address] [place] [address] Type: ADM IN Attending Dr: Kevon Viera [...] Tablet PO 08/11/25 08:59 75 mg DAILY [facility] Administration Cyanocobalamin 1,000 mcg 08/11/24 09:00 08/12/24 [...] 1 units TID.WM.[facility] Administration Protocol Ipratropium Nora 0.5 mg 08/11/24 08:00 08/12/24 12:31 Ipratropium Nora 0.5 Mg/2.5 Ml Vial.Neb INHALATION 08/11/25 07:59 [...] 08/12/24 15 12 Signed By: 08/12/24 1516 [facility]03-10-2025 Progress note Author Maurice Francis [facility] Note Date/Time August 12, 2024 11: 47am [facility] [address] [place] [address] Nephrology Progress Note Signed Patient: Myra Pickard SR MR#: [id number] : 1965 Acct:[id number] Age/Sex: 59 / M Adm Date: 5 Loc: Room: [address] [place] [address] Type: ADM IN Attending Dr: Kevon Viera [...] Skin: No rashes , warm to touch 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,Alert, 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 Musculoskeletal: No swelling [...] (Amitriptyline 25 Mg Tablet) 25 mg PO [facility] Stop: 08/11/25 21:59 Last Admin: 08/11/24 21:17 Dose: 25 mg Aspirin (Aspirin 81 Mg Tablet.) 81 mg PO DAILY [facility] Stop: 08/11/25 08:59 Last Admin: 08/12/24 08:27 Dose: 81 mg Atorvastatin Calcium (Atorvastatin 80 Mg Tablet) 80 mg PO DAILY [facility] Stop: 08/11/25 08:59 Last Admin: 08/12/24 08:27 Dose: 80 mg Budesonide/Formoterol Fumarate (Budesonide/Formoterol 160-4.5 Mcg 60 Puff/6 Gm Hfa.Aer.Ad) 2 puff INHALATION BID [facility] Stop: 08/11/25 08:59 Last Admin: 08/12/24 08:52 Dose: 2 puff Calcium Carbonate (Calcium Carbonate/Vitamin D3 500 Mg/200 Unit Tablet) 2 tab PO TID.WITH.MEALS [facility] Stop: 08/11/25 07:59 Last Admin: 08/12/24 08:27 Dose: 2 tab Clopidogrel Bisulfate (Clopidogrel Bisulfate 75 Mg Tablet) 75 mg PO DAILY [facility] Stop: 08/11/25 08:59 Last Admin: 08/12/24 08:27 Dose: 75 mg Cyanocobalamin (Cyanocobalamin 1,000 Mcg/Ml Vial) 1,000 mcg IM DAILY [facility] Stop: 08/17/24 09:01 Last Admin: 08/12/24 [...] 1,000 mls @ 125 mls/hr IV .Q8H [facility] Stop: 08/11/25 07:14 Last Admin: 08/12/24 08:26 Dose: 125 mls/hr Ferric Sodium Gluconate Complex 250 mg/ Sodium Chloride 270 mls @ 135 mls/hr IVQAM [facility] Stop: 08/14/24 10:59 Last Admin: 08/12/24 09:19 Dose: 135 mls/hr Insulin Aspart (Insulin Aspart 300 Units/3 Ml) 0 units SUBCUT TID.WM.[facility]; Protocol Stop: 08/11/25 07:59 Last Admin: 08/12/24 08:27 Dose: Not Given Ipratropium Nora (Ipratropium Nora 0.5 Mg/2.5 Ml Vial.Neb) 0.5 mg INHALATION QID.RESP [facility] Stop: 08/11/25 07:59 Last Admin: 08/12/24 08:51 Dose: 0.5 mg Isosorbide Mononitrate (Isosorbide Mononitrate 24hr Er 30 Mg Tab.Er.24h) 30 mg PO DAILY [facility] Stop: 08/11/25 08:59 Last Admin: 08/12/24 08:27 Dose: 30 mg Metoprolol Tartrate (Metoprolol Tartrate 100 Mg Tablet) 100 mg PO BID [facility] Stop: 08/11/25 08:59 Last Admin: 08/12/24 08:27 Dose: 100 mg Pantoprazole Sodium (Pantoprazole 40 Mg Tablet.Dr) 40 mg PO BID [facility] Stop: 08/11/25 08:59 Last Admin: 08/12/24 08:27 Dose: 40 mg Pregabalin (Pregabalin 75 Mg Capsule) 75 mg PO TID [facility] Stop: 02/07/25 08:59 Last Admin: 08/12/24 08:27 Dose: 75 mg Ropinirole HCl (Ropinirole 1 Mg Tablet) 1 mg PO TID [facility] Stop: 08/11/25 08:59 Last Admin: 08/12/24 08:27 Dose: 1 mg Tamsulosin HCl (Tamsulosin 0.4 Mg Cap.Er.24h) 0.4 mg PO BID [facility] Stop: 08/11/25 08:59 Last Admin: 08/12/24 08:27 Dose: 0.4 mg Tizanidine HCl (Tizanidine 4 Mg Tablet) 4 mg PO QHS [facility] Stop: 08/11/25 21:59 Last Admin: 08/11/24 21:17 [...] signed by Maurice Francis MD> 08/12/24 1145 [facility] Work Phone: 1(852) 671-347203-10-2025 [place] [address] Nephrology Progress Note Signed Patient: Myra Pickard SR MR#: [id number] : 1965 Acct:[id number] Age/Sex: 59 / M Adm Date: 5 Loc: Room: [address] [place] [address] Type: ADM IN Attending Dr: Kevon Viera [...] Skin: No rashes , warm to touch 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,Alert, 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 Musculoskeletal: No swelling [...] 25 Mg Tablet) 25 mg PO HS [facility] Stop: 08/11/25 21:59 Last Admin: 08/11/24 21:17 Dose: 25 mg Aspirin (Aspirin 81 Mg Tablet.) 81 mg PO DAILY [facility] Stop: 08/11/25 08:59 Last Admin: 08/12/24 08:27 Dose: 81 mg Atorvastatin Calcium (Atorvastatin 80 Mg Tablet) 80 mg PO DAILY [facility] Stop: 08/11/25 08:59 Last Admin: 08/12/24 08:27 Dose: 80 mg Budesonide/Formoterol Fumarate (Budesonide/Formoterol 160-4.5 Mcg 60 Puff/6 Gm Hfa.Aer.Ad) 2 puff INHALATION BID [facility] Stop: 08/11/25 08:59 Last Admin: 08/12/24 08:52 [...] 1,000 Mcg/Ml Vial) 1,000 mcg IM DAILY [facility] Stop: 08/17/24 09:01 Last Admin: 08/12/24 [...] 5,000 Unit/Ml Vial) 5,000 unit SUBCUT Q12HR [facility] Stop: 08/11/25 08:59 Last Admin: 08/12/24 08:27 Dose: 5,000 unit Hydralazine HCl (Hydralazine 20 Mg/Ml Vial) 10 mg IV-PUSH Q4H PRN PRN Reason: if SBP > 185 Stop: 08/11/25 05:38 Potassium Chloride/Sodium Chloride (0.9 % Nacl-20 Meq Kcl) 1,000 mls @ 125 mls/hr IV .Q8H [facility] Stop: 08/11/25 07:14 Last Admin: 08/12/24 08:26 Dose: 125 mls/hr Ferric Sodium Gluconate Complex 250 mg/ Sodium Chloride 270 mls @ 135 mls/hr IVQAM [facility] Stop: 08/14/24 10:59 Last Admin: 08/12/24 09:19 Dose: 135 mls/hr Insulin Aspart (Insulin Aspart 300 Units/3 Ml) 0 units SUBCUT TID.WM.HS [facility]; Protocol Stop: 08/11/25 07:59 Last Admin: 08/12/24 08:27 Dose: Not Given Ipratropium Nora (Ipratropium Nora 0.5 Mg/2.5 Ml Vial.Neb) 0.5 mg INHALATION QID.RESP [facility] Stop: 08/11/25 07:59 Last Admin: 08/12/24 08:51 Dose: 0.5 mg Isosorbide Mononitrate (Isosorbide Mononitrate 24hr Er 30 Mg Tab.Er.24h) 30 mg PO DAILY [facility] Stop: 08/11/25 08:59 Last Admin: 08/12/24 08:27 Dose: 30 mg Metoprolol Tartrate (Metoprolol Tartrate 100 Mg Tablet) 100 mg PO BID [facility] Stop: 08/11/25 08:59 Last Admin: 08/12/24 08:27 Dose: 100 mg Pantoprazole Sodium (Pantoprazole 40 Mg Tablet.Dr) 40 mg PO BID [facility] Stop: 08/11/25 08:59 Last Admin: 08/12/24 08:27 Dose: 40 mg Pregabalin (Pregabalin 75 Mg Capsule) 75 mg PO TID [facility] Stop: 02/07/25 08:59 Last Admin: 08/12/24 08:27 Dose: 75 mg Ropinirole HCl (Ropinirole 1 Mg Tablet) 1 mg PO TID [facility] Stop: 08/11/25 08:59 Last Admin: 08/12/24 08:27 Dose: 1 mg Tamsulosin HCl (Tamsulosin 0.4 Mg Cap.Er.24h) 0.4 mg PO BID [facility] Stop: 08/11/25 08:59 Last Admin: 08/12/24 08:27 Dose: 0.4 mg Tizanidine HCl (Tizanidine 4 Mg Tablet) 4 mg PO QHS [facility] Stop: 08/11/25 21:59 Last Admin: 08/11/24 21:17 [...] MD 08/12/24 1115 Signed By: 08/12/24 1147 [facility]03-09-2025 Consult note Author Amina Fagan [facility] Note Date/Time August 11, 2024 2:18 pm [facility] [address] [place] [address] Nephrology Consult Note Signed Patient: Myra Pickard SR MR#: [id number] : 1965 Acct:[id number] Age/Sex: 59 / M Adm Date: 5 Loc: Room: [address] [place] [address] Type: ADM IN Attending Dr: Kevon Viera [...] reviewed 12 system review is negative today [facility] Medical History Chronic obstructive pulmonary disease, unspecified [...] mass Atrial fibrillation Atherosclerotic heart disease of [place] coronary artery with unspecified angina pectoris Anxiety Hx of exercise stress test Family history of premature CAD Reports mother had quadruple bypass at age of 45 Myocardial infarction mild Fibromyalgia Chronic back pain Sleep apnea Neuropathy Cataract Peripheral artery disease Hyperlipidemia Diabetes Hypertension Surgical History History of below-knee amputation of right lower extremity 02/2024 [facility] by Dr. Simon Hernández Vascular History of [...] [History Confirmed 08/11/24] flash glucose scanning reader (Altrujayle Jigar 2 [place]) #1 ea 12/28/23 [Rx Confirmed 08/11/24] flash glucose sensor (SnapLogicStyle Jigar 2 Sensor kit) #1 ea 12/28/23 [...] 32 gauge x /32 (Comfort EZ Pen [place]) #100 ea 04/15/24 [Rx Confirmed 08/11/24] hydroxyzine [...] 25 Mg Tablet) 25 mg PO HS [facility] Stop: 08/11/25 21:59 Aspirin (Aspirin 81 [...] 1,000 Mcg/Ml Vial) 1,000 mcg IM DAILY [facility] Stop: 08/17/24 09:01 Last Admin: 08/11/24 [...] 5,000 Unit/Ml Vial) 5,000 unit SUBCUT Q12HR [facility] Stop: 08/11/25 08:59 Last Admin: 08/11/24 [...] 1,000 mls @ 125 mls/hr IV .Q8H [facility] Stop: 08/11/25 07:14 Last Admin: 08/11/24 11:51 Dose: 125 mls/hr Insulin Aspart (Insulin Aspart 300 Units/3 Ml) 0 units SUBCUT TID.WM[facility]; Protocol Stop: 08/11/25 07:59 Last Admin: 08/11/24 13:40 Dose: Not Given Ipratropium Nora (Ipratropium Nora 0.5 Mg/2.5 Ml Vial.Neb) 0.5 mg INHALATION [...] 1 Mg Tablet) 1 mg PO TID [facility] Stop: 08/11/25 08:59 Last Admin: 08/11/24 13:40 Dose: 1 mg Tamsulosin HCl (Tamsulosin 0.4 Mg Cap.Er.24h) 0.4 mg PO BID [facility] Stop: 08/11/25 08:59 Last Admin: 08/11/24 09:13 Dose: 0.4 mg Tizanidine HCl (Tizanidine 4 Mg Tablet) 4 mg PO QHS [facility] Stop: 08/11/25 21:59 Exam Physical Exam [...] Appearance Clear Urine pH 5.5 Ur Specific [place] 1.024 Urine Protein Negative Urine Glucose (UA) 500 H Urine Ketones Negative Urine Occult Blood Negative Urine Nitrite Negative Ur Leukocyte Esterase Negative Radiology Impressions Impressions - last 24 hours: Impressions Chest X-Ray 08/11/24 04:22 IMPRESSION: No acute process. Impression dictated by: Sudeep Lind M.D.08/11/2024 10:06 AM Dictation Location: [place] [address] 08/11/24 04:22 IMPRESSION: No acute [...] Sudeep Lind M.D.08/11/2024 10:06 AM Dictation Location: [place] [address] Any impression(s) listed above is documentation that [...] concern Documented By: Amina Fagan MD 08/11/24 Signed By: <Electronically signed by Amina Fagan MD> 08/11/24 5051 [facility] Work Phone: 1(779) 230-619403-09-2025 Progress note Author Kevon Viera [facility] Note Date/Time August 11, 2024 1:21 pm [facility] [address] [place] [address] Progress Note Signed Patient: Myra Pickard SR MR#: [id number] : 1965 Acct:[id number] Age/Sex: 59 / M Adm Date: 5 Loc: 3T Room: [address] [place] [address] Type: ADM IN Attending Dr: Kevon Viera [...] <Electronically signed by Kevon Viera MD> 08/11/24 [facility] Work Phone: 1([phone]) 176-146103-09-2025 [place] [address] Nephrology Consult Note Signed Patient: Myra Pickard SR MR#: [id number] : 1965 Acct:[id number] Age/Sex: 59 / M Adm Date: 5 Loc: Room: [address] [place] [address] Type: ADM IN Attending Dr: Kevon Viera [...] reviewed 12 system review is negative today [facility] Medical History Chronic obstructive pulmonary disease, unspecified [...] mass Atrial fibrillation Atherosclerotic heart disease of [place] coronary artery with unspecified angina pectoris Anxiety Hx of exercise stress test Family history of premature CAD Reports mother had quadruple bypass at age of 45 Myocardial infarction mild Fibromyalgia Chronic back pain Sleep apnea Neuropathy Cataract Peripheral artery disease Hyperlipidemia Diabetes Hypertension Surgical History History of below-knee amputation of right lower extremity 02/2024 [facility] by Dr. Simon Hernández Vascular History of [...] 07/12/23[History Confirmed 08/11/24] flash glucose scanning reader (Soricimed Jigar 2 [place]) #1 ea 12/28/23 [Rx Confirmed 08/11/24] flash glucose sensor (Altrujayle Jigar 2 Sensor kit) #1 ea 12/28/23 [...] 32 gauge x /32 (Comfort EZ Pen [place]) #100 ea 04/15/24 [Rx Confirmed 08/11/24] hydroxyzine [...] 25 Mg Tablet) 25 mg PO HS [facility] Stop: 08/11/25 21:59 Aspirin (Aspirin 81 Mg Tablet.) 81 mg PO DAILY [facility] Stop: 08/11/25 08:59 Last Admin: 08/11/24 09:13 Dose: 81 mg Atorvastatin Calcium (Atorvastatin 80 Mg Tablet) 80 mg PO DAILY [facility] Stop: 08/11/25 08:59 Last Admin: 08/11/24 09:14 Dose: 80 mg Budesonide/Formoterol Fumarate (Budesonide/Formoterol 160-4.5 Mcg 60 Puff/6 Gm Hfa.Aer.Ad) 2 puff INHALATION BID [facility] Stop: 08/11/25 08:59 Last Admin: 08/11/24 09:41 Dose: 2 puff Calcium Carbonate (Calcium Carbonate/Vitamin D3 500 Mg/200 Unit Tablet) 2 tab PO TID.WITH.MEALS [facility] Stop: 08/11/25 07:59 Last Admin: 08/11/24 13:40 Dose: 2 tab Clopidogrel Bisulfate (Clopidogrel Bisulfate 75 Mg Tablet) 75 mg PO DAILY [facility] Stop: 08/11/25 08:59 Last Admin: 08/11/24 09:14 Dose: 75 mg Cyanocobalamin (Cyanocobalamin 1,000 Mcg/Ml Vial) 1,000 mcg IM DAILY [facility] Stop: 08/17/24 09:01 Last Admin: 08/11/24 [...] 5,000 Unit/Ml Vial) 5,000 unit SUBCUT Q12HR [facility] Stop: 08/11/25 08:59 Last Admin: 08/11/24 [...] 1,000 mls @ 125 mls/hr IV .Q8H [facility] Stop: 08/11/25 07:14 Last Admin: 08/11/24 11:51 Dose: 125 mls/hr Insulin Aspart (Insulin Aspart 300 Units/3 Ml) 0 units SUBCUT TID.WM.HS [facility]; Protocol Stop: 08/11/25 07:59 Last Admin: 08/11/24 13:40 Dose: Not Given Ipratropium Nora (Ipratropium Nora 0.5 Mg/2.5 Ml Vial.Neb) 0.5 mg INHALATION [...] Appearance Clear Urine pH 5.5 Ur Specific [place] 1.024 Urine Protein Negative Urine Glucose (UA) 500 H Urine Ketones Negative Urine Occult Blood Negative Urine Nitrite Negative Ur Leukocyte Esterase Negative Radiology Impressions Impressions - last 24 hours: Impressions Chest X-Ray 08/11/24 04:22 IMPRESSION: No acute process. Impression dictated by: Sudeep Lind M.D.08/11/2024 10:06 AM Dictation Location: [place] [address] 08/11/24 04:22 IMPRESSION: No acute [...] Sudeep Lind M.D.08/11/2024 10:06 AM Dictation Location: [place] [address] Any impression(s) listed above is documentation that [...] MD 08/11/24 1405 Signed By: 08/11/24 1418 [facility]03-09-2025 [place] [address] Progress Note Signed Patient: Myra Pickard MR#: [id number] : 1965 Acct:[id number] Age/Sex: 59 / M Adm Date: 5 Loc: 3T Room: [address] [place] [address] Type: ADM IN Attending Dr: Kevon Viera [...] 08/11/24 13 20 Signed By: 08/11/24 1321 [facility]03-09-2025 Radiology Diagnostic study note [facility] Main [place] [address] [place] [address] CT Scan Report Signed Patient: Myra Pickard SR MR#: [id number] : 1965 Acct:[id number] Age/Sex: 59 / M ADM Date: 5 Loc: Room: [address] [place] [address] Type: ADM IN Attending Dr: Kevon Viera MD Copies to: MD Francisco Urbina Jr, MD~ Ordering Provider: Francisco Duncan Jr, MD Date of Service: 08/11/24 CT/CT head stroke alert wo con: acute stroke/neuro deficits ([id number]) CT/CT angio neck: L side numb ([id number]) CT/CT angio head: L side numb Unenhanced [...] DO 08/11/24 1000 Signed By: 08/11/24 1006 [facility]03-09-2025 History and physical note Author Marge Andino [facility] Note Date/Time August 11, 2024 7:24 am [facility] [address] [place] [address] Hospitalist H&P Signed Patient: Myra Pickard SR MR#: [id number] : 1965 Acct:[id number] Age/Sex: 59 / M Adm Date: 5 Loc: 3T Room: [address] [place] [address] Type: ADM IN Attending Dr: Kevon Viera [...] neck without acute findings -official report pending [facility] Medical History Chronic obstructive pulmonary disease, unspecified [...] mass Atrial fibrillation Atherosclerotic heart disease of [place] coronary artery with unspecified angina pectoris Anxiety Hx of exercise stress test Family history of premature CAD Reports mother had quadruple bypass at age of 45 Myocardial infarction mild Fibromyalgia Chronic back pain Sleep apnea Neuropathy Cataract Peripheral artery disease Hyperlipidemia Diabetes Hypertension Surgical History History of below-knee amputation of right lower extremity 02/2024 [facility] by Dr. Simon Hernández Vascular History of [...] [History Confirmed 08/11/24] flash glucose scanning reader (SnapLogicStyle Jigar 2 [place]) #1 ea 12/28/23 [Rx Confirmed 08/11/24] flash [...] 32 gauge x 5/32 (Comfort EZ Pen [place]) #100 ea 04/15/24 [Rx Confirmed 08/11/24] hydroxyzine [...] 04:15 Lymph % (Auto) N/A 08/11/24 04:15 Camp % (Auto) N/A 08/11/24 04:15 Eos % (Auto) N/A 08/11/24 04:15 Baso % (Auto) N/A 08/11/24 04:15 Nucleat RBC Rel Count N/A 08/11/24 04:15 Neut # (Auto) N/A 08/11/24 04:15 Lymph # (Auto) N/A 08/11/24 04:15 Camp # (Auto) N/A 08/11/24 04:15 Eos # [...] <Electronically signed by Marge Andino MD> 08/11/24 1724 [facility] Work Phone: 1(947) 666-707003-09-2025 Evaluation note* Diagnosis Onset Date Resolution Status Admit Date Acute kidney injury superimp osed on CKD acute August 11, 2024 5:39am BPH loc w urin obs/LUTS acute [facility] 2024 5:39am Diabetes acute August 11 5:39am Hypocalcemia acute August 11 025 5:39am Hypokalemia acute August 11 5:39am Hypomagnesemia acute August 11, 2024 5:39am Iron deficiency acute August 5:39am Left sided numbness acute August 11, 2024 5:39am Paresthesias acute August 11 025 5:39am Vitamin B12 deficiency acute [facility] 2024 5:39am Hypertension chronic August 11, 025 5:39am [facility] Work Phone: 1(491) 948-907503-09-2025 Evaluation note* Diagnosis Onset Date Resolution Status Admit Date Hypocalcemia acute August 11, 2 025 5:39am Hypokalemia acute August 11 5:39am Hypomagnesemia acute August 11, 2024 5:39am Acute kidney injury superimp osed on CKD inactive August 11, 2024 5:39am BPH loc w urin obs/LUTS inactive [facility] 2024 5:39am Diabetes inactive August 11 5:39am Hypertension inactive August 11, 2 025 5:39am Iron deficiency inactive August 5:39am Left sided numbness inactive August 11, 2024 5:39am Paresthesias inactive August 11, 2 025 5:39am Vitamin B12 deficiency inactive [facility] 2024 5:39am Anemia of renal disease acute [facility] 2024 8:37am Chronic kidney disease, stage 3b acu te August 30, 2024 8:37am 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 acute [facility] 2024 8:37am Hypocalcemia acute August 30, 2024 8:37am Hypokalemia acute August 30 025 8:37am Hypomagnesemia acute August 8:37am Neuropathy acute August 30 8:37am Non compliance w medication regimen acute August 30, 2024 8:37am [facility] Work Phone: 1(804) 506-447103-09-2025 Evaluation note* Diagnosis Onset Date Resolution Status Admit Date Hypocalcemia acute August 11, 025 5:39am Hypokalemia acute August 11 5:39am Hypomagnesemia acute August 11, 2024 5:39am Acute kidney injury superimp osed on CKD inactive August 11, 2024 5:39am BPH loc w urin obs/LUTS inactive [facility] 2024 5:39am Diabetes inactive August 11 5:39am Hypertension inactive August 11 025 5:39am Iron deficiency inactive August 5:39am Left sided numbness inactive August 11, 2024 5:39am Paresthesias inactive August 11 025 5:39am Vitamin B12 deficiency inactive [facility] 2024 5:39am Anemia of renal disease acute [facility] 2024 8:37am Chronic kidney disease, stage 3b acu te August 30, 2024 8:37am 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 acute [facility] 2024 8:37am Hypocalcemia acute August 30, 2024 8:37am Hypokalemia acute August 30 025 8:37am Hypomagnesemia acute August 8:37am Neuropathy acute August 30 8:37am Non compliance w medication regimen acute August 30, 2024 8:37am Chest pain acute October 10, 2024 6:25pm [facility] Work Phone: 1([phone]) 513-457003-09-2025 Evaluation note* Diagnosis Onset Date Resolution Status Admit Date Hypocalcemia acute August 11 025 5:39am Hypokalemia acute August 11 5:39am Hypomagnesemia acute August 11, 2024 5:39am Acute kidney injury superimp osed on CKD inactive August 11, 2024 5:39am BPH loc w urin obs/LUTS inactive [facility] 2024 5:39am Diabetes inactive August 11 5:39am Hypertension inactive August 11 025 5:39am Iron deficiency inactive August 5:39am Left sided numbness inactive August 11, 2024 5:39am Paresthesias inactive August 11 025 5:39am Vitamin B12 deficiency inactive [facility] 2024 5:39am Anemia of renal disease acute [facility] 2024 8:37am Chronic kidney disease, stage 3b acu te August 30, 2024 8:37am 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 acute [facility] 2024 8:37am Hypocalcemia acute August 30, 2024 8:37am Hypokalemia acute August 30 8:37am Hypomagnesemia acute August 8:37am Neuropathy acute August 30 8:37am Non compliance w medication regimen acute August 30, 2024 8:37am CAD (coronary artery disease) inacti ve October 10, 2024 6:25pm Chronic kidney disease inactive Md 2024 6:25pm Chronic obstructive pulmonar y disease, unspecified inactive October 10 6:25pm History of below-knee amputa tion of right lower extremity inactive October 6:25pm Hyperlipidemia inactive October 10 6:25pm Chest pain deleted October 10, 2024 6:25pm [facility] Work Phone: 1(361) 239-655003-09-2025 Evaluation note* Diagnosis Onset Date Resolution Status Admit Date Hypocalcemia acute August 11 025 5:39am Hypokalemia acute August 11 5:39am Hypomagnesemia acute August 11, 2024 5:39am Iron deficiency acute August 5:39am Vitamin B12 deficiency acute [facility] 2024 5:39am Acute kidney injury superimp osed on CKD inactive August 11, 2024 5:39am BPH loc w urin obs/LUTS inactive [facility] 2024 5:39am Diabetes inactive August 11 5:39am Hypertension inactive August 11, 025 5:39am Left sided numbness inactive August 11, 2024 5:39am Paresthesias inactive August 11, 2 025 5:39am Anemia of renal disease acute [facility] 2024 8:37am Chronic kidney disease, stage 3b acu te August 30, 2024 8:37am 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 acute [facility] 2024 8:37am Hypocalcemia acute August 30, 2024 8:37am Hypokalemia acute August 30, 025 8:37am Hypomagnesemia acute August 8:37am Neuropathy acute August 30 8:37am Non compliance w medication regimen acute August 30, 2024 8:37am CAD (coronary artery disease) acute October 10, 2024 6:25pm History of below-knee amputa tion of right lower extremity acute October 6:25pm Chronic kidney disease inactive Md 2024 6:25pm Chronic obstructive pulmonar y disease, unspecified inactive October 10 6:25pm Hyperlipidemia inactive October 10, 6:25pm Chest pain deleted October 10, 2024 6:25pm Anemia of renal disease acute J [facility] 2024 1:08pm CAD (coronary artery disease) acute November 05, 2024 1:08pm Cigarette nicotine dependenc e with nicotine-induced disorder acute J [facility] 2024 1:08pm 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 acute 2024 1:08pm History of below-knee amputa tion of right lower extremity acute November 1:08pm Hypocalcemia acute November 05 1:08pm Vitamin D deficiency acute November 05, 2024 1:08pm Anemia of renal disease acute J [facility] 2024 4:13pm BMI 34.0-34.9,adult [...] 4:13pm BPH loc w urin obs/LUTS inactive [facility] 2024 4:13pm [facility] Work Phone: [phone]) [phone] Evaluation note* Diagnosis Onset Date Resolution Status Admit Date Hypocalcemia acute August 11 025 5:39am Hypokalemia acute August 11 5:39am Hypomagnesemia acute August 11, 2024 5:39am Acute kidney injury superimp osed on CKD inactive August 11, 2024 5:39am BPH loc w urin obs/LUTS inactive [facility] 2024 5:39am Diabetes inactive August 11 5:39am Hypertension inactive August 11, 025 5:39am Iron deficiency inactive August 5:39am Left sided numbness inactive August 11, 2024 5:39am Paresthesias inactive August 11 025 5:39am Vitamin B12 deficiency inactive [facility] 2024 5:39am Anemia of renal disease acute [facility] 2024 8:37am Chronic kidney disease, stage 3b acu te August 30, 2024 8:37am 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 acute [facility] 2024 8:37am Hypocalcemia acute August 30, 2024 8:37am Hypokalemia acute August 30 025 8:37am Hypomagnesemia acute August 8:37am Neuropathy acute August 30 8:37am Non compliance w medication regimen acute August 30, 2024 8:37am CAD (coronary artery disease) acute October 10, 2024 6:25pm History of below-knee amputa tion of right lower extremity acute October 6:25pm Chronic kidney disease inactive [facility] 2024 6:25pm Chronic obstructive pulmonar y disease, [...] D deficiency acute November 05, 2024 1:08pm [facility] Work Phone: [phone]) [phone] [place] [address] Hospitalist H&P Signed Patient: Myra Pickard SR MR#: [id number] : 1965 Acct:[id number] Age/Sex: 59 / M Adm Date: 5 Loc: Room: [address] [place] [address] Type: ADM IN Attending Dr: Kevon Viera [...] neck without acute findings -official report pending [facility] Medical History Chronic obstructive pulmonary disease, unspecified [...] mass Atrial fibrillation Atherosclerotic heart disease of [place] coronary artery with unspecified angina pectoris Anxiety Hx of exercise stress test Family history of premature CAD Reports mother had quadruple bypass at age of 45 Myocardial infarction mild Fibromyalgia Chronic back pain Sleep apnea Neuropathy Cataract Peripheral artery disease Hyperlipidemia Diabetes Hypertension Surgical History History of below-knee amputation of right lower extremity 02/2024 [facility] by Dr. Simon Hernández Vascular History of [...] 07/12/23[History Confirmed 08/11/24] flash glucose scanning reader (SnapLogicStyle Jigar 2 [place]) #1 ea 12/28/23 [Rx Confirmed 08/11/24] flash [...] 32 gauge x 5/32 (Comfort EZ Pen [place]) #100 ea 04/15/24 [Rx Confirmed 08/11/24] hydroxyzine [...] 04:15 Lymph % (Auto) N/A 08/11/24 04:15 Camp % (Auto) N/A 08/11/24 04:15 Eos % (Auto) N/A 08/11/24 04:15 Baso % (Auto) N/A 08/11/24 04:15 Nucleat RBC Rel Count N/A 08/11/24 04:15 Neut # (Auto) N/A 08/11/24 04:15 Lymph # (Auto) N/A 08/11/24 04:15 [place] # (Auto) N/A 08/11/24 04:15 Eos # [...] Andino MD 08/11/24 0717 Signed By: 08/11/24723 [facility]03-04-2025 NotePatient Education Urology Orchitis Orchitis is inflammation [...] by your health care provider. ??? Take bzdf-lzx-ncqmrjq and prescription medicines only as told by [...] medicines to fight th (more content not included)...[facility]12-23-2024 Hospital Discharge instructions Patient Education 05/27/2024 [...] urethra. Follow these instructions at home: Take tdph-nmz-zdpogjz and prescription medicines only as told by [...] provider. Document Revised: 12/08/2021 Document Reviewed: 12/08/2021 Arthena Patient Education 2023 [employer]. Follow Up Care 04/01/2024 10:56:08 With:SOLEDAD HERRERA, Yeyo Blum, URL Address: [facility] [address] , [place] [address]- [phone] When: Unknown [facility] 12-23-2024 NotePatient Education Urology Benign Prostatic [...] Follow these instructions at home: ??? Take vxzh-iim-facendy and prescription medicines only as told by [...] symptoms do not get (more content not included)...[facility]12-23-2024 Evaluation + Plan note Diagnostic Tests Pending * PSA Total 05/27/24 Future Scheduled Tests Radiology* US PVR Lower EXT Complete Bilat 11/20/23 [facility] 12-03-2024 Evaluation note* Diagnosis Onset Date Resolution [...] 4:21pm Hypomagnesemia acute May 072023 4:21pm [facility] Work Phone: 1(138) 567-331811-19-2024 Procedure [place] [address] EGD Procedure Note Signed Patient: Myra Pickard SR MR#: [id number] : 1965 Acct:[id number] Age/Sex: 58 / M Adm Date: 4 Loc: Room: Type: [facility] Attending Dr: Mike Burleson MD Copies to: [...] MD Documented By: Mike Burleson MD 04/23/24 9336 Signed By: 04/23/24 8405 [facility]11-19-2024 [place] [address] Gastroenterology H&P Signed Patient: Myra Pickard SR MR#: [id number] : 1965 Acct:[id number] Age/Sex: 58 / M Adm Date: 4 Loc: Room: Type: [facility] Attending Dr: Mike Burleson MD Copies to: [...] MD 04/23/24 1349 Signed By: 04/23/24 1350 [facility]11-01-2024 Evaluation note* Author Cat Byrd [facility] Authored April 05, 2024 1 :29pm Sooner if needed, the ER if concerns,The above note written by Cat Byrd LPN acting as human recorder, note dictated by Dr. Teresa Lynch [facility] Work Phone: 1(818) 254-302010-18-2024 Miscellaneous Notes* Telephone Encounter - Moncho Stevenson - 03/22/2024 11:24 PM EDT Contract: 198 - Re: high Blood Sugars . Called Dr. Tam and connected to caller [facility] Tele[facility] encounter Note* Telephone Encounter - Moncho Stevenson - 03/22/2024 11:24 PM EDT Contract: 198 - Re: high Blood Sugars . Called Dr. Tam and connected to caller [facility]10[facility] History of Present illness Narrative* Guero Ines Tam, - 03/19/2024 5:25 PM EDT Patient Name: Myra Pickard Date of : 1965 Date of Service: 03/19/2024 Facility: [facility] Type of Visit: Skilled Visit Subjective [...] polyneuropathy associated with type 2 diabetes mellitus ([facility]) 2. Encounter for orthopedic aftercare following surgical [...] BY: Guero Tam DO [facility] History of Present illness Narrative* Guero Tam DO - 03/15/2024 6:27 PM EDT Patient Name: Myra Pickard Date of : 1965 Date of Service: 03/15/2024 Facility: [facility] Type of Visit: Admission H&P Subjective Myra Pickard is a 58 y.o. male seen today at longterm facility for admission for therapies. Myra returns to [facility] from [facility] where he was admitted for altered mental [...] polyneuropathy associated with type 2 diabetes mellitus ([facility]) 2. Disorientation 3. Other abnormalities of gait and mobility 4. Status post partial amputation of right foot ([facility]) 5. Atherosclerosis of [place] coronary artery of [place] heart without angina pectoris 6. Atrial fibrillation ([facility]) 7. Primary hypertension Admit to [facility] for therapies. Plan to do therapy and then go home in a few weeks. Continue current regimen. Full code. Good rehab potential. ELECTRONICALLY SIGNED BY: Guero Tam DO documented in this [facility]10-11-2024 Miscellaneous Notes* Telephone Encounter - Nancy Kim CMA - 03/15/2024 10:10 AM EDT Patients spouse called in to question about getting a postal worker sock. Stated patient is currently [facility] a care facility. Please advise and call spouse. documented in this [facility]10-11-2024 Telephone encounter Note* Telephone Encounter - Nancy Kim CMA - 03/15/2024 10:10 AM EDT Patients spouse called in to question about getting a postal worker sock. Stated patient is currently isin a care facility. Please advise and call spouse. [facility]10-09-2024 Discharge summary Author Remberto Ervin [facility] March 13, 2024 9:46am Note Date/Time March 13, 2024 9: 46am [facility] [address] [place] [address] Discharge Summary Signed Patient: Myra Pickard SR MR#: [id number] : 1965 Acct:[id number] Age/Sex: 58 / M Adm Date: 4 Loc: Room: [address] [place] [address]: Remberto Ervin MD Copies to: [...] colleague in collaboration with other specialists and systems support officer. Patient came in with a change in [...] ask her primary care doctor to obtain [facility] record entirely to address abnormalities [...] ask your primary care provider to obtain [facility] records entirely to follow up on all of the abnormal physical, laboratory, and imaging findings that I have not addressed. Please return back to the emergency room or seek medical attention if your symptoms worsen or return. Discharging you from [facility] does not mean that your medical [...] Instructions: As directed (DME) FreeStyle Jigar 2 [place] Misc See Rx Instructions .ROUTE Qty: 1 [...] 16:02 Blood Culture Stat 03/10/24 06:49 NMDA [L-pkiulc-G-Aspartate IgG, Ser] IN AM Preliminary micro results [...] % (Auto) 66.7, Lymph % (Auto) 14.7, Camp % (Auto) 14.4, Eos % (Auto) 3.0, Baso % (Auto) 1.2, Nucleat RBC Rel Count 0.1, Neut # (Auto) 4.0, Lymph # (Auto) 0.9 L, Camp # (Auto) 0.9 H, Eos # (Auto) [...] signed by Remberto Ervin MD> 03/13/24 0946 [facility] Work Phone: 1(572) 362-963310-08-2024 Progress note Author João Powell [facility] March 12, 2024 1:46pm Note Date/Time March 12, 2024 1: 34pm [facility] [address] [place] [address] Hospitalist Progress Note Signed Patient: Myra Pickard SR MR#: [id number] : 1965 Acct:[id number] Age/Sex: 58 / M Adm Date: 4 Loc: Room: [address] [place] [address] Type: ADM IN Attending Dr: João Powell [...] 2 units TID.WM.HS SATISH Administration Protocol Ipratropium Nora 0.5 mg 03/08/24 20:00 03/12/24 09:34 Ipratropium Nora 0.5 Mg/2.5 Ml Vial.Neb INHALATION 03/08/25 19:59 [...] signed by João Powell MD> 03/12/24 1346 [facility] Work Phone: 1(765) 974-699510-08-2024 Progress note Author Mike Burleson [facility] March 12, 2024 9:28am Note Date/Time March 12, 2024 9: 28am [facility] [address] [place] [address] Gastroenterology PN Signed Patient: Myra Pickard MR#: [id number] : 1965 Acct:[id number] Age/Sex: 58 / M Adm Date: 4 Loc: 3T Room: [address] [place] [address] Type: ADM IN Attending Dr: João Powell [...] 1 units TID.WM.HS SATISH Administration Protocol Ipratropium Nora 0.5 mg 03/08/24 20:00 03/12/24 06:05 Ipratropium Nora 0.5 Mg/2.5 Ml Vial.Neb INHALATION 03/08/25 19:59 [...] 03/15/25 08:59 .5 Ml Pen Injector QWEEK [facility] Ondansetron HCl 4 mg 03/12/24 00:22 03/12/24 [...] <Electronically signed by Mike Burleson MD> 03/12/24927 [facility] Work Phone: 1(746) 519-736110-07-2024 Progress note Author João Powell [facility] March 11, 2024 1:38pm Note Date/Time March 11, 2024 1: 35pm [facility] [address] [place] [address] Hospitalist Progress Note Signed Patient: Myra Pickard MR#: [id number] : 1965 Acct:[id number] Age/Sex: 58 / M Adm Date: 4 Loc: Room: [address] [place] [address] Type: ADM IN Attending Dr: João Powell [...] Insuln.Pen SUBCUT 03/10/25 11:59 Not Given TID.WM.HS [facility] Protocol Ipratropium Nora 0.5 mg 03/08/24 20:00 03/11/24 10:15 Ipratropium Nora 0.5 Mg/2.5 Ml Vial.Neb INHALATION 03/08/25 19:59 [...] <Electronically signed by João Powell MD> 03/11/24 2839 [facility] Work Phone: 1(468) 864-619410-06-2024 Progress note Author Luther Dozier [facility] March 10, 2024 11:31am Note Date/Time March 10, 2024 11 :31am [facility] [address] [place] [address] Neurology Progress Note Signed Patient: Myra Pickard SR MR#: [id number] : 1965 Acct:[id number] Age/Sex: 58 / M Adm Date: 4 Loc: 3T Room: [address] [place] [address] Type: ADM IN Attending Dr: João Powell [...] of breathing. He is alert. Oriented to [facility], March. Speech is fluent and nondysarthric. Pupils [...] signed by Luther Dozier DO> 03/10/24 1131 [facility] Work Phone: 1(265) 361-415910-06-2024 Consult note Author Mike Burleson [facility] March 10, 2024 11:29am Note Date/Time March 10, 2024 11 :29am [facility] [address] [place] [address] Gastroenterology Consult Note Signed Patient: Myra Pickard SR MR#: [id number] : 1965 Acct:[id number] Age/Sex: 58 / M Adm Date: 4 Loc: Room: [address] [place] [address] Type: ADM IN Attending Dr: João Powell [...] Denies easy bruising Allergic/Immunologic Allergic/Immunologic: Denies wheezing [facility] Medical History Vitamin D deficiency Spondylosis of [...] mass Atrial fibrillation Atherosclerotic heart disease of [place] coronary artery with unspecified angina pectoris Anxiety [...] Use Type: None Social History Comments: at [facility] for rehab Meds Medications and Allergies Allergies [...] [History Confirmed 03/08/24] flash glucose scanning reader (Soricimed Jigar 2 [place]) #1 ea 12/28/23 [Rx Confirmed 03/08/24] flash [...] % (Auto) 83.4 Lymph % (Auto) 4.9 Camp % (Auto) 10.6 Eos % (Auto) 0.8 Baso % (Auto) 0.3 Nucleat RBC Rel Count 0.2 Neut # (Auto) 11.4 H Lymph # (Auto) 0.7 L Camp # (Auto) 1.5 H Eos # (Auto) [...] MPV Neut % (Auto) Lymph % (Auto) Camp % (Auto) Eos % (Auto) Baso % (Auto) Nucleat RBC Rel Count Neut # (Auto) Lymph # (Auto) Camp # (Auto) Eos # (Auto) Baso # [...] By: <Electronically signed by Mike Burleson MD> 03/10/242 [facility] Work Phone: 1(207) 175-516310-06-2024 Progress note Author João Powell [facility] March 10, 2024 10:14am Note Date/Time March 10, 2024 10 :14am [facility] [address] [place] [address] Hospitalist Progress Note Signed Patient: yMra Pickard SR MR#: [id number] : 1965 Acct:[id number] Age/Sex: 58 / M Adm Date: 4 Loc: 3T Room: [address] [place] [address] Type: ADM IN Attending Dr: João Powell [...] IV 03/10/25 09:22 DAILY PRN Hypomagnesemia Ipratropium Nora 0.5 mg 03/08/24 20:00 03/10/24 05:25 Ipratropium Nora 0.5 Mg/2.5 Ml Vial.Neb INHALATION 03/08/25 19:59 [...] signed by João Powell MD> 03/10/24 1014 [facility] Work Phone: 1(324) 386-552910-05-2024 Progress note Author João Powell [facility] March 09, 2024 11:32am Note Date/Time March 09, 2024 10 :57am [facility] [address] [place] [address] Hospitalist Progress Note Signed Patient: Myra Pickard SR MR#: [id number] : 1965 Acct:[id number] Age/Sex: 58 / M Adm Date: 4 Loc: 3T Room: [address] [place] [address] Type: ADM IN Attending Dr: João Powell [...] 21:59 5,000 unit Q8HR SATISH Administration Ipratropium Nora 0.5 mg 03/08/24 20:00 03/09/24 09:14 Ipratropium Nora 0.5 Mg/2.5 Ml Vial.Neb INHALATION 03/08/25 19:59 [...] signed by João Powell MD> 03/09/24 1132 [facility] Work Phone: 1(252) 433-315410-05-2024 Consult note Author Job James [facility] March 09, 2024 11:12am Note Date/Time March 09, 2024 11 :10am [facility] [address] [place] [address] Psychiatry Consult Note Signed Patient: Myra Pickard SR MR#: [id number] : 1965 Acct:[id number] Age/Sex: 58 / M Adm Date: 4 Loc: Room: [address] [place] [address] Type : ADM IN Attending Dr: João Powell MD Copies to: MD Teresa Oates,DO João Powell MD~ HPI Consult Date: 03/09/24 Requesting [...] more like retaliation Insight: fair Judgment: fair [facility] Medical History Vitamin D deficiency Spondylosis of [...] mass Atrial fibrillation Atherosclerotic heart disease of [place] coronary artery with unspecified angina pectoris Anxiety [...] Use Type: None Social History Comments: at [facility] for rehab Meds Medications and Allergies Allergies [...] [History Confirmed 03/08/24] flash glucose scanning reader (SnapLogicStyle Jigar 2 [place]) #1 ea 12/28/23 [Rx Confirmed 03/08/24] flash [...] Appearance Clear Urine pH 5.0 Ur Specific [place] 1.013 Urine Protein Negative Urine Glucose (UA) [...] signed by Job James MD> 03/09/24 1112 [facility] Work Phone: 1(465) 849-183710-05-2024 Consult note Author Luther Dozier [facility] March 09, 2024 10:59am Note Date/Time March 09, 2024 9: 07am [facility] [address] [place] [address] Neurology Consult Note Signed Patient: Myra Pickard SR MR#: [id number] : 1965 Acct:[id number] Age/Sex: 58 / M Adm Date: 4 Loc: Room: [address] [place] [address] Type: ADM IN Attending Dr: João Powell MD Copies to: DO Teresa Freeman DO Mohamad Akil, MD~ HPI Consult Date: 03/09/24 Plumbing Service Technician: Luther Dozier DO [facility] Medical History Vitamin D deficiency Spondylosis of [...] mass Atrial fibrillation Atherosclerotic heart disease of [place] coronary artery with unspecified angina pectoris Anxiety [...] Use Type: None Social History Comments: at [facility] for rehab Meds Medications and Allergies Allergies [...] [History Confirmed 03/08/24] flash glucose scanning reader (Soricimed Jigar 2 [place]) #1 ea 12/28/23 [Rx Confirmed 03/08/24] flash [...] Marks Jr. DAlex03/08/2024 2:41 PM Dictation Location: [place] [address] Chest X-Ray 03/08/24 17:03 IMPRESSION: No acute process. Impression dictated by: Sudeep Lind M.D.03/08/2024 6:08 PM Dictation Location: [place] [address] Brain MRI 03/08/24 17:48 IMPRESSION: No acute intracranial process. Impression dictated by: Sudeep Lind M.D.03/08/2024 8:10 PM Dictation Location: [place] [address] Assessment/Plan (1) Altered mental status: Qualifiers: Altered mental status type: unspecified Qualified Code(s): R41.82 - Altered mental status, unspecified Plan CONSULT REASON: Sudden AMS, stroke ruled out HPI: 58-year-old man. History that includes coronary artery disease with PCI, peripheral vascular disease, type 2 diabetes, hypertension, heart failure, diabetic neuropathy, status post recent below the knee amputation at [facility]. He had just been here several [...] <Electronically signed by Luther Dozier DO> 03/09/24 2629 [facility] Work Phone: 1(749) 963-149310-05-2024 History and physical note Author João Powell [facility] March 08, 2024 10:05pm Note Date/Time March 08, 2024 7: 19pm [facility] [address] [place] [address] Hospitalist H&P Signed Patient: Myra Pickard SR MR#: [id number] : 1965 Acct:[id number] Age/Sex: 58 / M Adm Date: 4 Loc: Room: [address] [place] [address] Type: ADM IN Attending Dr: João Powell [...] neuropathy status post right BKA recently at [facility], here today for altered mental status. [...] neck were all negative. ED staff contacted [place] neuro stroke team and patient was deemed [...] of Systems Unobtainable due to mental status [facility] Medical History Vitamin D deficiency Spondylosis of [...] mass Atrial fibrillation Atherosclerotic heart disease of [place] coronary artery with unspecified angina pectoris Anxiety [...] Use Type: None Social History Comments: at [facility] for rehab Meds Medications and Allergies Allergies [...] [History Confirmed 03/08/24] flash glucose scanning reader (Soricimed Jigar 2 [place]) #1 ea 12/28/23 [Rx Confirmed 03/08/24] flash glucose sensor (SnapLogicStyle Jigar 2 Sensor kit) #1 ea 12/28/23 [...] % (Auto) 13.1 % (.) 03/08/24 14:15 Camp % (Auto) 13.2 % (.) 03/08/24 14:15 Eos % (Auto) 3.3 % (.) 03/08/24 14:15 Baso % (Auto) 1.0 % (.) 03/08/24 14:15 Nucleat RBC Rel Count 0.2 /100 WBC (0-0.5) 03/08/24 14:15 Neut # (Auto) 6.2 x10E3/uL (1.8-7.7) 03/08/24 14:15 Lymph # (Auto) 1.2 x10E3/uL (1.00-4.8) 03/08/24 14:15 Camp # (Auto) 1.2 x10E3/uL (0.0-0.8) H 03/08/24 [...] pH 5.0 (5.0-9.0) 03/08/24 16:11 Ur Specific [place] 1.013 (1.001-1.030) 03/08/24 16:11 Urine Protein Negative [...] <Electronically signed by João Powell MD> 03/08/24 4371 [facility] Work Phone: 1(757) 123-888910-01-2024 Progress note Author Luther Dozier [facility] March 05, 2024 2:28pm Note Date/Time March 05, 2024 2: 22pm [facility] [address] [place] [address] Neurology Progress Note Signed Patient: Myra Pickard SR MR#: [id number] : 1965 Acct:[id number] Age/Sex: 58 / M Adm Date: 4 Loc: Room: [address] [place] [address] Type: ADM IN Attending Dr: João Powell [...] <Electronically signed by Luther Dozier DO> 03/05/241427 [facility] Work Phone: 1(950) 875-698910-01-2024 Progress note Author João Powell [facility] March 05, 2024 2:17pm Note Date/Time March 05, 2024 2: 17pm [facility] [address] [place] [address] Hospitalist Progress Note Signed Patient: Myra Pickard SR MR#: [id number] : 1965 Acct:[id number] Age/Sex: 58 / M Adm Date: 4 Loc: Room: [address] [place] [address] Type: ADM IN Attending Dr: João Powell [...] 1,000 Ml IV 03/03/25 17:59 60 mls/hr .[id number] SATISH Administration Ferric Sodium Gluconate 110 mls @ 110 mls/hr 03/05/24 12:00 03/05/24 13:18 Complex 125 mg/ Sodium IV 03/07/24 09:01 110 mls/hr Chloride QAM SATISH Administration Insulin Aspart 0 units 03/04/24 12:00 03/05/24 11:41 Insulin Aspart 300 Units/3 Ml Insuln.Pen SUBCUT 03/04/25 11:59 Not Given TID.WM.HS SATISH Protocol Ipratropium Nora 0.5 mg 03/04/24 09:00 03/05/24 13:59 Ipratropium Nora 0.5 Mg/2.5 Ml Vial.Neb INHALATION 03/04/25 08:59 [...] <Electronically signed by João Powell MD> 03/05/24 1417 [facility] Work Phone: 1(897) 176-966110-01-2024 Consult note Author Mike Burleson [facility] March 05, 2024 1:35pm Note Date/Time March 05, 2024 9: 32am [facility] [address] [place] [address] Gastroenterology Consult Note Signed Patient: Myra Pickard SR MR#: [id number] : 1965 Acct:[id number] Age/Sex: 58 / M Adm Date: 4 Loc: Room: [address] [place] [address] Type: ADM IN Attending Dr: João Powell [...] Hematologic/Lymphatic: Denies easy bruising and Denies lymphadenopathy [facility] Medical History Vitamin D deficiency Spondylosis of [...] mass Atrial fibrillation Atherosclerotic heart disease of [place] coronary artery with unspecified angina pectoris Anxiety [...] Use Type: None Social History Comments: at [facility] for rehab Meds Medications and Allergies Allergies [...] 12/25/23[Rx Confirmed 03/03/24] flash glucose scanning reader (SnapLogicStyle Jigar 2 [place]) #1 ea 12/28/23 [Rx Confirmed 03/03/24] flash [...] MPV Neut % (Auto) Lymph % (Auto) Camp % (Auto) Eos % (Auto) Baso % (Auto) Nucleat RBC Rel Count Neut # (Auto) Lymph # (Auto) Camp # (Auto) Eos # (Auto) Baso # [...] MPV Neut % (Auto) Lymph % (Auto) Camp % (Auto) Eos % (Auto) Baso % (Auto) Nucleat RBC Rel Count Neut # (Auto) Lymph # (Auto) Camp # (Auto) Eos # (Auto) Baso # [...] Type Recheck O Positive Antibody Screen Crossmatch ([facility]) 03/04/24 03/05/24 03/05/24 20:45 06:11 06:54 Corrected WBC 8.3 Uncorrected WBC Count 8.3 RBC 3.83 L Hgb 8.6 L Hct 26.8 L MCV 70.1 L MCH 22.4 L MCHC 31.9 L RDW 21.4 H Plt Count 361 MPV 7.9 Neut % (Auto) 67.6 Lymph % (Auto) 16.1 Camp % (Auto) 12.4 Eos % (Auto) 2.8 Baso % (Auto) 1.1 Nucleat RBC Rel Count 0.0 Neut # (Auto) 5.6 Lymph # (Auto) 1.3 Camp # (Auto) 1.0 H Eos # (Auto) [...] 2.8 Albumin/Globulin Ratio 1.2 Vitamin B12 Folate [facility] 3rd Generation Blood Type Blood Type Recheck Antibody Screen Crossmatch ([facility]) A&P - Gastroenterology Assessment/Plan (1) Anemia: Plan -Iron studies show likely early iron deficiency. The patient is not having any overt GI bleeding and does not need any urgent endoscopic evaluation. -Recommend obtaining prior GI workup from [facility] -I recommend continuing his PPI -Recommend avoiding [...] follow-up with his previous GI team at [facility] Thank you for this consult, little further to add from a GI standpoint. I will peripherally follow pending discharge. Documented By: Mike Burleson MD 03/05/24 0932 Signed By: <Electronically signed by Mike Burleson MD> 03/05/24 1182 [facility] Work Phone: 1(793) 622-755209-30-2024 Consult note Author Luther Dozier [facility] March 04, 2024 12:57pm Note Date/Time March 04, 2024 12:57pm [facility] [address] [place] [address] Neurology Consult Note Signed Patient: Myra Pickard SR MR#: [id number] : 1965 Acct:[id number] Age/Sex: 58 / M Adm Date: 4 Loc: Room: [address] [place] [address] Type: ADM INOo Attending Dr: João Powell MD Copies to: DO Teresa Freeman DO Mohamad Akil, MD~ HPI Consult Date: 03/04/24 Plumbing Service Technician: Luther Dozier DO [facility] Medical History Vitamin D deficiency Spondylosis of [...] mass Atrial fibrillation Atherosclerotic heart disease of [place] coronary artery with unspecified angina pectoris Anxiety [...] Use Type: None Social History Comments: at [facility] for rehab Meds Medications and Allergies Allergies [...] 12/25/23[Rx Confirmed 03/03/24] flash glucose scanning reader (Soricimed Jigar 2 [place]) #1 ea 12/28/23 [Rx Confirmed 03/03/24] flash glucose sensor (SnapLogicStyle Jigar 2 Sensor kit) #1 ea 12/28/23 [...] Sudeep Lind M.D.03/03/2024 3:05 PM Dictation Location: [place] [address] Abdomen/Pelvis CT 03/03/24 14:19 IMPRESSION: No acute findings. Moderate constipation. Impression dictated by: Sudeep Lind M.D.03/03/2024 3:01 PM Dictation Location: [place] [address] 03/03/24 16:59 IMPRESSION: No acute findings. Impression dictated by: Sudeep Lind M.D.03/03/2024 5:50 PM Dictation Location: [place] [address] Assessment/Plan (1) Syncope: Qualifiers: Syncope type: unspecified Qualified Code(s): R55 - Syncope and collapse Plan CONSULT REASON: Syncope HPI: 58-year-old man. Significant bodily vasculopathy, probably secondary to diabetes. History of coronary artery disease requiring percutaneous intervention, peripheral vascular disease, type 2 diabetes, hypertension, severediabetic polyneuropathy, nonhealing right lower extremity wounds now status postright below the knee amputation about 3 weeks ago at [facility]. He was feeling lightheaded every time [...] signed by Luther Dozier DO> 03/04/24 1257 [facility] Work Phone: 1(139) 449-574209-30-2024 Progress note Author João Powell [facility] March 04, 2024 11:53am Note Date/Time March 04, 2024 11:46am [facility] [address] [place], [place] [address]ist Progress Note Signed Patient: Myra Pickard SR MR#: [id number] : 1965 Acct:[id number] Age/Sex: 58 / M Adm Date: 4 Loc: 3T Room: [address] [place] [address] Type: ADM INOo Attending Dr: João Powell [...] 1,000 Ml IV 03/03/25 17:59 60 mls/hr .[id number] SATISH Administration Sodium Chloride 500 mls @ 20 mls/hr 03/04/24 09:29 0.9 % Sodium Chloride IV 03/05/24 09:28 PROTOCOL PRN BLOOD TRANSFUSION Ipratropium Nora 0.5 mg 03/04/24 09:00 03/04/24 10:47 Ipratropium Nora 0.5 Mg/2.5 Ml Vial.Neb INHALATION 03/04/25 08:59 [...] signed by João Powell MD> 03/04/24 1153 [facility] Work Phone: 1(215) 749-658409-30-2024 History and physical note Author João Powell [facility] March 03, 2024 10:48pm Note Date/Time March 03, 2024 5:55pm [facility] [address] [place] [address] Hospitalist H&P Signed Patient: Myra Pickard SR MR#: [id number] : 1965 Acct:[id number] Age/Sex: 58 / M Adm Date: 4 Loc: Room: [address] [place] [address] Type: ADM INOo Attending Dr: João Powell [...] neuropathy status post right BKA recently at [facility]. He presents today with episodes of [...] negative unless noted below or in HPI [facility] Medical History Vitamin D deficiency Spondylosis of [...] mass Atrial fibrillation Atherosclerotic heart disease of [place] coronary artery with unspecified angina pectoris Anxiety [...] 12/25/23[Rx Confirmed 03/03/24] flash glucose scanning reader (Soricimed Jigar 2 [place]) #1 ea 12/28/23 [Rx Confirmed 03/03/24] flash glucose sensor (SnapLogicStyle Jigar 2 Sensor kit) #1 ea 12/28/23 [...] % (Auto) 18.2 % (.) 03/03/24 14:00 Camp % (Auto) 11.3 % (.) 03/03/24 14:00 Eos % (Auto) 3.2 % (.) 03/03/24 14:00 Baso % (Auto) 1.7 % (.) 03/03/24 14:00 Nucleat RBC Rel Count 0.2 /100 WBC (0-0.5) 03/03/24 14:00 Neut # (Auto) 4.7 x10E3/uL (1.8-7.7) 03/03/24 14:00 Lymph # (Auto) 1.3 x10E3/uL (1.00-4.8) 03/03/24 14:00 Camp # (Auto) 0.8 x10E3/uL (0.0-0.8) 03/03/24 14:00 [...] pH 5.0 (5.0-9.0) 03/03/24 14:35 Ur Specific [place] 1.009 (1.001-1.030) 03/03/24 14:35 Urine Protein Negative [...] <Electronically signed by João Powell MD> 03/03/24 46[address] [facility] Work Phone: 1(239) 780-494909-26-2024 History of Present illness Narrative* Mike Montes [...] up Removal of toshia next week at [facility] and sizing for prosthesis.. [facility] of Present illness Narrative* Guero Tam DO - 02/28/2024 2:51 PM EDT Patient Name: Myra Pickard Date of : 1965 Date of Service: 02/28/2024 Facility: [facility] Type of Visit: Skilled Visit Subjective [...] BY: Guero Tam DO documented in this encounterSt. [facility]Log[facility] History of Present illness Narrative* Guero Tam [...] and grafts Fibromyalgia Atherosclerotic heart disease of [place] coronary artery without angina pectoris GERD glaucoma Gout Hyperlipidemia Essential hypertension Migraine Polyneuropathy Obstructive and reflux uropathy RLS Osteoarthritis Dorsalgia Benign prostatic hyperplasia with lower urinary tract symptoms Bilateral carpal tunnel syndrome Heart failure unspecified Nicotine dependence of cigarettes Plan: Admit to [facility] for therapies. continue medications. Full code Renew oxycodone 10 mg Q6hrs prn Good rehab potential. Discharge to home when able to safely discharge [facility] Hospital Discharge instructions Patient Education 02/21/2024 14:36:02 [...] to cope with stress. General instructions Take tqqw-srt-[id number] and prescription medicines only as told by [...] department or: Call your local emergency services (893 in the [place] Call a suicide crisis helpline, such as the National Suicide Prevention Lifeline at or 663 in the [place] This is open 24 hours a day in the [place] Text the Crisis Text Line at 492320 (in the [place] Summary It will take [...] provider. Document Revised: 12/15/2021 Document Reviewed: 10/07/2021 [employer] Patient Education 2023 [employer]. Follow Up Care 02/09/2024 10:35:38 With:TERESA LYNCH DO, FAM Address: [address] [place] [address]- When: Unknown With:Mike Montes MD Address: [address] [place] [address]- When:2 weeks Comments:Call for followup appointment [facility] 09-18-2024 NoteDischarge Summary Admission and Discharge Information [...] With When Contact Information TERESA LYNCH DO, [facility] [address] [place] [address]- Additional Instructions: Simon HERRERA, Mike FMary Within 2 weeks [address] [place] [address]- Additional Instructions: Call for followup appointment Patient Education Living With an AmputationSamaritan HospitalComment on above:Result Comment: Electronically Signed By: Raulito Gilliland DO.br\Date and Time Signed: 02/21/24 15:01 [id number] Evaluation + Plan noteExtracted from: Title:Discharge Note [...] Contact Information TERESA LYNCH DO, FAM [address] [place] [address]- Additional Instructions: Simon HERRERA, [facility] FMary Within 2 weeks [address] [place] [address]- Additional Instructions: Call for followup appointment Living With an Amputation Extracted from: Title:APSO Note Author:Raulito Gilliland DO Ankur e:02/21/24 Patient is a 58-year-old mal e with past medical history of SD/CAD, heart failure, GERD, HTN, COPD, insulin-dependent type [...] Sbsq Hospital Care/Day Straight Fwd 25 Minutes 46907 2. Leukocytosis (D72.829: Elevated white blood cell [...] artery disease (I25.10: Atherosclerotic heart disease of [place] coronary artery without angina pectoris) Aspirin, atorvastatin 80 mg p.o. daily, Plavix Metoprolol, isosorbide mononitrate, Lasix 9. Tobacco abuse (Z72.0: Tobacco use) Counseled on cessation. Nicotine patch. Orders: Capillary Glucose POC CBC w/ Auto Diff Change Attending Extracted from: Title:APSO Note Author:Ben Corrigan III, DO Date:02/20/24 Patient is a 58-year-old mal e with past medical history of SD/CAD, heart failure, GERD, HTN, COPD, insulin-dependent type [...] Auto Diff CBC w/ Auto Diff eGFR [facility] Care/Day Moderate 35 Minutes 31142 2. Leukocytosis (D72.829: Elevated white blood cell count, unspecified) Likely reactive with nausea and vomiting overnight. Will continue to monitor closely. No signs of infection of surgical wound. Follow-up a.m. labs. 3. Essential hypertension (I10: Essential (primary) hypertension) Metoprolol, isosorbide mononitrate, Lasix. Well-controlled. Ordered: [facility] Care/Day Moderate 35 Minutes 40833 4. Hyperlipidemia (E78.5: Hyperlipidemia, unspecified) Statin Ordered: [facility] Care/Day Moderate 35 Minutes 98029 5. Anemia (D64.9: Anemia, unspecified) Acute on chronic. Stable postoperatively. Will continue to monitor closely Ordered: Basic Metabolic Panel CBC w/ Auto Diff [facility] Care/Day Moderate 35 Minutes 84975 6. 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 (E11.42: Type 2 diabetes mellitus with diabetic polyneuropathy) Glimepiride 2 mg p.o. twice daily, glargine 35 units nightly, lispro 5 units with meals, BGT ACHS, sliding scale insulin as needed with meals Poorly controlled. Increased glargine to 35 units nightly om 02/18 from 30 units nightly. Ordered: [facility] Care/Day Moderate 35 Minutes 85843 7. Stage 3 chronic kidney disease (N18.30: Chronic kidney disease, stage 3 unspecified) Creatinine 1.8. Baseline 1.5-1.6. Monitor closely. Ordered: Basic Metabolic Panel CBC w/ Auto Diff eGFR [facility] Care/Day Moderate 35 Minutes 07503 8. Coronary artery disease (I25.10: Atherosclerotic heart disease of [place] coronary artery without angina pectoris) Aspirin, atorvastatin 80 mg p.o. daily, Plavix Metoprolol, isosorbide mononitrate, Lasix Ordered: [facility] Care/Day Moderate 35 Minutes 46911 9. Tobacco abuse (Z72.0: Tobacco use) Counseled on cessation. Nicotine patch. Orders: oxycodone, 10 mg = 2 tab(s), Tab, Oral, q4hr PRN Pain for 5 day(s), Stop date 02/25/24 19:00:00 EDT, Routine, Start date 02/20/24 19:01:00 EDT, 02/20/24 19:01:00 EDT Extracted from: Title:APSO Note Author:Ben Corrigan III, DO Date:02/19/24 Patient is a 58-year-old mal e with past medical history of SD/CAD, heart failure, GERD, HTN, COPD, insulin-dependent type [...] Basic Metabolic Panel CBC w/ Auto Diff [facility] Care/Day Moderate 35 Minutes 38472 2. Essential hypertension (I10: Essential (primary) hypertension) Metoprolol, isosorbide mononitrate, Lasix. Well-controlled. Ordered: [facility] Care/Day Moderate 35 Minutes 72420 3. Hyperlipidemia (E78.5: Hyperlipidemia, unspecified) Statin Ordered: [facility] Care/Day Moderate 35 Minutes 53021 4. Anemia (D64.9: Anemia, unspecified) Acute on chronic. Stable postoperatively. Will continue to monitor closely Ordered: CBC w/ Auto Diff [facility] Care/Day Moderate 35 Minutes 36179 5. 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 (E11.42: Type 2 diabetes mellitus with diabetic polyneuropathy) Glimepiride 2 mg p.o. twice daily, glargine 30 units nightly, lispro 5 units with meals, BGT ACHS, sliding scale insulin as needed with meals Poorly controlled. Will increase glargine to 35 units nightly. Ordered: [facility] Care/Day Moderate 35 Minutes 80481 6. Stage 3 chronic kidney disease (N18.30: Chronic kidney disease, stage 3 unspecified) Creatinine 1.7. Baseline 1.5-1.6. Monitor closely. Ordered: Basic Metabolic Panel [facility] Care/Day Moderate 35 Minutes 45214 7. Coronary artery disease (I25.10: Atherosclerotic heart disease of [place] coronary artery without angina pectoris) Aspirin, atorvastatin [...] artery disease (I25.10: Atherosclerotic heart disease of [place] coronary artery without angina pectoris) continue plavix [...] Pain control PT/OT discharge to rehab Ordered: [facility] Care/Day High 50 Minutes 22592 [facility] Care/Day Moderate 35 Minutes 37859 2. Essential hypertension (I10: Essential (primary) hypertension) good control continue to hold losartan continue lasix and imdur monitor BP Ordered: [facility] Care/Day High 50 Minutes 03111 [facility] Care/Day Moderate 35 Minutes 95124 3. Hyperlipidemia (E78.5: Hyperlipidemia, unspecified) continue statin Ordered: [facility] Care/Day High 50 Minutes 31917 [facility] Care/Day Moderate 35 Minutes 24510 4. Anemia (D64.9: Anemia, unspecified) Acute Blood loss anemia, possibly post surgical loss hgb has remained stable post transfusion continue to monitor CBC today Ordered: [facility] Care/Day High 50 Minutes 91038 [facility] Care/Day Moderate 35 Minutes 51373 5. 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 (E11.42: Type 2 diabetes mellitus with diabetic polyneuropathy) BGL is better controlled today compared to yesterday continue current insulin dose with sliding scale If BGl continues to be elevated during the day today, will start meal time scheduled coverage Ordered: [facility] Care/Day High 50 Minutes 10831 [facility] Care/Day Moderate 35 Minutes 34174 6. Stage 3 chronic kidney disease (N18.30: Chronic kidney disease, stage 3 unspecified) Overall renal function is stable continue to monitor Ordered: [facility] Care/Day High 50 Minutes 31728 [facility] Care/Day Moderate 35 Minutes 03816 7. Coronary artery disease (I25.10: Atherosclerotic heart disease of [place] coronary artery without angina pectoris) On home medication/ continue plavix and statin Ordered: [facility] Care/Day High 50 Minutes 87107 [facility] Care/Day Moderate 35 Minutes 79012 8. Tobacco abuse (Z72.0: Tobacco use) nicotine patch Ordered: [facility] Care/Day High 50 Minutes 52142 [facility] Care/Day Moderate 35 Minutes 79313 Orders: acetaminophen-oxycodone, 2 tab(s), Tab, Oral, [id number], Routine, Start date 02/16/24 14:00:00 EDT heparin, [...] CBC w/ Auto Diff eGFR Path. Review [facility] Care/Day High 50 Minutes 68678 [facility] Care/Day High 50 Minutes 00909 2. Essential hypertension (I10: Essential (primary) hypertension) had to held lasix this morning due to low BP continue other home meds, Imdur, Ordered: Basic Metabolic Panel CBC w/ Auto Diff eGFR Path. Review [facility] Care/Day High 50 Minutes 56034 [facility] Care/Day High 50 Minutes 74330 3. Hyperlipidemia (E78.5: Hyperlipidemia, unspecified) continue statin Ordered: Basic Metabolic Panel CBC w/ Auto Diff eGFR Path. Review [facility] High 50 Minutes 13896 [facility] Care/Day High 50 Minutes 32166 4. Anemia (D64.9: Anemia, unspecified) hgb is stable post transfusion at 7.6 since patient is stable, will start heparin prophylaxis Ordered: Basic Metabolic Panel CBC w/ Auto Diff eGFR Path. Review [facility] Care/Day High 50 Minutes 81840 [facility] Care/Day High 50 Minutes 43133 5. 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 Review [facility] Care/Day High 50 Minutes 02250 [facility] Care/Day High 50 Minutes 33387 6. Stage 3 chronic kidney disease (N18.30: Chronic kidney disease, stage 3 unspecified) stable continue to monitor Ordered: Basic Metabolic Panel CBC w/ Auto Diff eGFR Path. Review [facility] Care/Day High 50 Minutes 09469 [facility] Care/Day High 50 Minutes 95410 7. Coronary artery disease (I25.10: Atherosclerotic heart disease of [place] coronary artery without angina pectoris) overall stable continue plavix Ordered: Basic Metabolic Panel CBC w/ Auto Diff eGFR Path. Review [facility] Care/Day High 50 Minutes 77860 [facility] Care/Day High 50 Minutes 76068 8. Tobacco abuse (Z72.0: Tobacco use) nicotine patch Ordered: Basic Metabolic Panel CBC w/ Auto Diff eGFR Path. Review [facility] Care/Day High 50 Minutes 64225 [facility] Care/Day High 50 Minutes 70775 Orders: acetaminophen-oxycodone, 2 tab(s), Tab, Oral, [id number], Routine, Start date 02/16/24 14:00:00 EDT heparin, [...] Diff Sbsq Hospital Care/Day High 50 Minutes 24301 2. Essential hypertension (I10: Essential (primary) hypertension) good control continue current medications Ordered: Basic Metabolic Panel CBC w/ Auto Diff [facility] Hospital Care/Day High 50 Minutes 55870 3. Hyperlipidemia (E78.5: Hyperlipidemia, unspecified) statin Ordered: Basic Metabolic Panel CBC w/ Auto Diff [facility] Hospital Care/Day High 50 Minutes 88385 4. Anemia (D64.9: Anemia, unspecified) hgb has remained stable since transfusion hgb is 7.7. i thought it should be higher than than considering that he received 2 units of PRBC. Ordered: Basic Metabolic Panel CBC w/ Auto Diff Sbsq Hospital Care/Day High 50 Minutes 89298 5. 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 (E11.42: Type 2 diabetes mellitus with diabetic polyneuropathy) BGL is poorly controlled diabetic diet increase lantus to 25 units QHS accucheck achs Ordered: Basic Metabolic Panel CBC w/ Auto Diff [facility] Care/Day High 50 Minutes 08601 6. Stage 3 chronic kidney disease (N18.30: Chronic kidney disease, stage 3 unspecified) overall stable, but noted mild increase in creatinine today contiue to monitor Ordered: Basic Metabolic Panel CBC w/ Auto Diff [facility] Care/Day High 50 Minutes 48254 7. Coronary artery disease (I25.10: Atherosclerotic heart disease of [place] coronary artery without angina pectoris) Plavix for secondary prophylaxis Ordered: Basic Metabolic Panel CBC w/ Auto Diff [facility] Care/Day High 50 Minutes 43549 8. Tobacco abuse (Z72.0: Tobacco use) nicotine patch Ordered: Basic Metabolic Panel CBC w/ Auto Diff [facility] Care/Day High 50 Minutes 27402 Orders: insulin glargine, 25 unit(s), Injection-Insulin, SubCutaneous, [...] dilaudid PT/OT appreciate Vascular team recommendations Ordered: [facility] Care/Day High 50 Minutes 60974 2. Essential hypertension (I10: Essential (primary) hypertension) Better compared to yesterday. continue current management currently on lasix, losartan, metoprolol and imdur. seems to be too much BP meds since BP is about 120s. continue to monitor BP. Ordered: [facility] Care/Day High 50 Minutes 87766 3. Hyperlipidemia (E78.5: Hyperlipidemia, unspecified) continue statin Ordered: [facility] Care/Day High 50 Minutes 96847 4. Anemia (D64.9: Anemia, unspecified) Acute on chronic anemia due to surgical intervention hgb has remained stable since transfusion continue to monitor h and h Ordered: [facility] Care/Day High 50 Minutes 12204 5. 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 continue lantus at current dose continue Jardiance and Glimipiride Ordered: [facility] Care/Day High 50 Minutes 59624 6. Stage 3 chronic kidney disease (N18.30: Chronic kidney disease, stage 3 unspecified) possible due to complication of DM. monitor renal function. creatinine at baseline of 1.9. needs out patient follow up for Nephro recommendation 7. Coronary artery disease (I25.10: Atherosclerotic heart disease of [place] coronary artery without angina pectoris) continue plavix and asa as ordered Orders: acetaminophen-oxycodone, 1 tab(s), Tab, Oral, [id number], Routine, Start date 02/13/24 13:00:00 EDT furosemide, [...] Ordered: [facility] Care/Day High 75 Minutes 46946 2. Essential hypertension (I10: Essential (primary) hypertension) BP on the low side today unsure if this is related to ?Anemia hold Losartan monitor BP, if still low, will bolus. Ordered: [facility] Care/Day High 75 Minutes 58815 3. Hyperlipidemia (E78.5: Hyperlipidemia, unspecified) statin Ordered: [facility] Care/Day High 75 Minutes 44897 4. Anemia (D64.9: Anemia, unspecified) Acute on chronic anemia. acute loss due to post op blood loss transfused 2 units of PRBC today. continue to monitor will hold asa and plavix for now and resume when Anemia improves or stabilized Also hold off on anticoagulation until anemia stabilizes can do scd on left leg Ordered: [facility] Care/Day High 75 Minutes 85497 5. 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 (E11.42: Type 2 diabetes mellitus with diabetic polyneuropathy) poorly controlled diabetic diet continue glimipiride, lantus and januvia Monitor BGL and treate with sliding scale as needed Ordered: [facility] Care/Day High 75 Minutes 32901 Orders: acetaminophen-oxycodone, 1 tab(s), Tab, Oral, [id number], Routine, Start date 02/13/24 13:00:00 EDT amitriptyline, [...] Author:Zachary morrow MD, Ahmad F Date:02/12/24 Plan [place] [employer] (ASA) physical status classification: [...] US PVR Lower EXT Complete Bilat 11/20/23 [facility] 09-18-2024 NotePeripheral smear evaluation:[facility]aritan HospitalComment on above:Performed By: #### [id number] #### [facility] [address], [place] [id number] NoteProgress Note-Physician Assessment/Plan Patient is a 58-year-old male with past medical history of SD/CAD, heart failure, GERD, HTN, COPD, insulin-dependent type [...] to aid in wound healing Ordered: [facility] Care[facility]Day Straight Fwd 25 Minutes 49626 2. Leukocytosis (D72.829: Elevated white blood cell [...] artery disease (I25.10: Atherosclerotic heart disease of [place] coronary artery withoutangina pectoris) ? Aspirin, atorvastatin [...] Lymph Auto: 12.4 % Low (02/21/24 06:02:00) Camp Auto: 8.7 % (02/21/24 06:02:00) Eos Auto: 3.6 % (02/21/24 06:02:00) Basophil Auto: 0.7 % (02/21/24 06:02:00) Neutro Absolute: 9.3 E9/L High (02/21/24 06:02:00) Lymph Absolute: 1.5 E9/L (02/21/24 06:02:00) Camp Absolute: 1.1 E9/L High (02/21/24 06:02:00) Eos [...] High (02/21/24 10:49: (more content not included)... [facility] HospitalComment on above:Result Comment: Electronically Signed By: Raulito Gilliland DO\.br\Date and Time Signed: 02/21/24 10:56 EDT 02-20-2024 NoteProgress Note-Physician Assessment/Plan Patient is a 58-year-old male with past medical history of SD/CAD, heart failure, GERD, HTN, COPD, insulin-dependent type [...] eGFR Sbsq Hospital Care/Day Moderate 35 Minutes 53321 2. Leukocytosis (D72.829: Elevated white blood cell count, unspecified) ? Likely reactive with nausea and vomiting overnight. Will continue to monitor closely. No signs ofinfection of surgical wound. Follow-up a.m. labs. 3. Essential hypertension (I10: Essential (primary) hypertension) ? Metoprolol, isosorbide mononitrate, Lasix. Well-controlled. Ordered: [facility] Care/Day Moderate 35 Minutes 16985 4. Hyperlipidemia (E78.5: Hyperlipidemia, unspecified) ? Statin Ordered: [facility] Care/Day Moderate 35 Minutes 90277 5. Anemia (D64.9: Anemia, unspecified) ? Acute on chronic. Stable postoperatively. Will continue to monitor closely Ordered: Basic Metabolic Panel CBC w/ Auto Diff [facility] Care/Day Moderate 35 Minutes 75175 6. 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 Glimepiride 2 mg p.o. twice daily, glargine 35 units nightly, lispro 5 units with meals, BGT ACHS, sliding scale insulin as needed with meals ?Poorly controlled. Increased glargine to 35 units nightly om 02/18 from 30 units nightly. Ordered: [facility] Care/Day Moderate 35 Minutes 72442 7. Stage 3 chronic kidney disease (N18.30: Chronic kidney disease, stage 3 unspecified) ? Creatinine 1.8. Baseline 1.5-1.6. Monitor closely. Ordered: Basic Metabolic Panel CBC w/ Auto Diff eGFR [facility] Care/Day Moderate 35 Minutes 42035 8. Coronary artery disease (I25.10: Atherosclerotic heart disease of [place] coronary artery withoutangina pectoris) ? Aspirin, atorvastatin 80 mg p.o. daily, Plavix ? Metoprolol, isosorbide mononitrate, Lasix Ordered: [facility] Care/Day Moderate 35 Minutes 01127 9. Tobacco abuse (Z72.0: Tobacco use) ? [...] the indicated time period. (more content not included)...[facility] HospitalComment on above:Result Comment: Electronically Signed By: Ben Corrigan III, DO\Date and Time Signed: 02/20/24 19:09 [id number] NoteProgress Note-Physician Assessment/Plan Patient is a 58-year-old male with past medical history of SD/CAD, heart failure, GERD, HTN, COPD, insulin-dependent type [...] Basic Metabolic Panel CBC w/ Auto Diff [facility] Care/Day Moderate 35 Minutes 71465 2. Essential hypertension (I10: Essential (primary) hypertension) ? Metoprolol, isosorbide mononitrate, Lasix. Well-controlled. Ordered: [facility] Care/Day Moderate 35 Minutes 96677 3. Hyperlipidemia (E78.5: Hyperlipidemia, unspecified) ? Statin Ordered: [facility] Care/Day Moderate 35 Minutes 14984 4. Anemia (D64.9: Anemia, unspecified) ? Acute on chronic. Stable postoperatively. Will continue to monitor closely Ordered: CBC w/ Auto Diff [facility] Care/Day Moderate 35 Minutes 97270 5. 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 Glimepiride 2 mg p.o. twice daily, glargine 30 units nightly, lispro 5 units with meals, BGT ACHS, sliding scale insulin as needed with meals ?Poorly controlled. Will increase glargine to 35 units nightly. Ordered: [facility] Care/Day Moderate 35 Minutes 66663 6. Stage 3 chronic kidney disease (N18.30: Chronic kidney disease, stage 3 unspecified) ? Creatinine 1.7. Baseline 1.5-1.6. Monitor closely. Ordered: Basic Metabolic Panel [facility] Care/Day Moderate 35 Minutes 80238 7. Coronary artery disease (I25.10: Atherosclerotic heart disease of [place] coronary artery withoutangina pectoris) ? Aspirin, atorvastatin [...] Exam General: alert, no (more content not included)...[facility] Comment on above:Result Comment: Electronically Signed By: Ben Corrigan III, DO\Date and Time Signed: 02/19/24 17:00 [id number] NoteProgress Note-Physician Patient: MYRA PICKARD SR Age: 58 years Sex: Male : 1965 Associated Diagnoses: None Author: MD Juanito, Laura Rodriguez Postoperative Information Postoperative disposition: Postoperative disposition: To PACU. Optimetrix number: Optimetrix number [id number]. Anesthetic utilized: General. Health Status Allergies: Allergic [...] Discharge when meets criteria ( To home ).[facility]:Result Comment: Electronically Signed By: [...] mg oral tablet: 2 tab(s), Tab, Oral, [id number], Routine, Start date 02/16/24 14:00:00 EDT Plavix [...] cap(s), Oral, B (more content not included)... [facility] on above:Result Comment: Electronically Signed By: [...] artery disease (I25.10: Atherosclerotic heart disease of [place] coronary artery withoutangina pectoris) continue plavix as [...] mg/dL High (02/18/24 11:32:00) POC Device SN: [id number] (02/18/24 11:32:00) POC User ID: [id number] (02/18/24 11:32:00) POC Username: RAJESH OSEGUERA (02/18/24 11:32:00) Problem List/Past Medical History Ongoing Arthritis Asthma BPH with obstruction/lower urinary tract symptoms COPD type A Fibromyalgia Gross hematuria Head ache Heart attack Heart disease Heart murmur Hyperlipidemia Orchitis Restless leg Smoker Urinary retention Historical CHF (congestive heart failure) GERD [Gastroesophageal reflux disease] HTN [Hypertension] SD (myocardial infarction) NIDDM Medications Inpatient acetaminophen 325 [...] mg-325 mg oral tablet, 2 tab(s), Oral, [id number] Plavix 75 mg Tab, 75 mg= 1 tab(s), Oral, Daily polyethylene glycol 335 (more content not included)...[facility] HospitalComment on above:Result Comment: Electronically Signed By: Marisela HERRERA, Elan Robbins\.br\Date and Time Signed: 02/18/24 13:45 [id number] NoteProgress Note-Physician Assessment/Plan Goal: 1. Aggressive bowel regimen as ordered 2. Monitor hgb 3. Monitor BGL, better controlled but still elevated. DVT prophylaxis with heparin if tolerated. 1. 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 Essential hypertension (I10: Essential (primary) hypertension) good control continue to hold losartan continue lasix and imdur monitor BP Ordered: [facility] Care/Day High 50 Minutes 33120 [facility] Care/Day Moderate 35 Minutes 65904 3. Hyperlipidemia (E78.5: Hyperlipidemia, unspecified) continue statin Ordered: [facility] Care/Day High 50 Minutes 02286 [facility] Care/Day Moderate 35 Minutes 91245 4. Anemia (D64.9: Anemia, unspecified) Acute Blood loss anemia, possibly post surgical loss hgb has remained stable post transfusion continue to monitor CBC today Ordered: [facility] Care/Day High 50 Minutes 15967 [facility] Care/Day Moderate 35 Minutes 69581 5. 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 Stage 3 chronic kidney disease (N18.30: Chronic kidney disease, stage 3 unspecified) Overall renal function is stable continue to monitor Ordered: [facility] Care/Day High 50 Minutes 68269 [facility] Care/Day Moderate 35 Minutes 79823 7. Coronary artery disease (I25.10: Atherosclerotic heart disease of [place] coronary artery withoutangina pectoris) On home medication/ continue plavix and statin Ordered: [facility] Care/Day High 50 Minutes 87148 [facility] Care/Day Moderate 35 Minutes 45188 8. Tobacco abuse (Z72.0: Tobacco use) nicotine patch Ordered: [facility] Care/Day High 50 Minutes 58984 [facility] Care/Day Moderate 35 Minutes 35724 Orders: acetaminophen-oxycodone, 2 tab(s), Tab, Oral, [id number], Routine, Start date 02/16/24 14:00:00 EDT heparin, [...] (02/17/24 07:49:00) POC Dev (more content not included)...[facility] on above:Result Comment: Electronically Signed By: Marisela HERRERA, lEan Humphrey.br\Date and Time Signed: 02/17/24 10:36 [id number] NoteProgress Note-Physician Assessment/Plan Goals: 1. 2 time [...] [facility] Care/Day High 50 Minutes 62830 [facility] Care/Day High 50 Minutes 58988 2. Essential hypertension (I10: Essential (primary) hypertension) had to held lasix this morning due to low BP continue other home meds, Imdur, Ordered: Basic Metabolic Panel CBC w/ Auto Diff eGFR Path. [facility] Care/Day High 50 Minutes 89536 [facility] High 50 Minutes 05215 3. Hyperlipidemia (E78.5: Hyperlipidemia, unspecified) continue statin Ordered: Basic Metabolic Panel CBC w/ Auto Diff eGFR Path. [facility] Care/Day High 50 Minutes 32388 [facility] Care/Day High 50 Minutes 88691 4. Anemia (D64.9: Anemia, unspecified) hgb is stable post transfusion at 7.6 since patient is stable, will start heparin prophylaxis Ordered: Basic Metabolic Panel CBC w/ Auto Diff eGFR Path. [facility] Care/Day High 50 Minutes 64550 [facility] Care/Day High 50 Minutes 96406 5. 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 Review [facility] Care/Day High 50 Minutes 99037 [facility] Care/Day High 50 Minutes 98003 6. Stage 3 chronic kidney disease (N18.30: Chronic kidney disease, stage 3 unspecified) stable continue to monitor Ordered: Basic Metabolic Panel CBC w/ Auto Diff eGFR Path. Review [facility] Care/Day High 50 Minutes 51235 [facility] Care/Day High 50 Minutes 80723 7. Coronary artery disease (I25.10: Atherosclerotic heart disease of [place] coronary artery withoutangina pectoris) overall stable continue plavix Ordered: Basic Metabolic Panel CBC w/ Auto Diff eGFR Path. Review [facility] Care/Day High 50 Minutes 96661 [facility] Care/Day High 50 Minutes 26876 8. Tobacco abuse (Z72.0: Tobacco use) nicotine patch Ordered: Basic Metabolic Panel CBC w/ Auto Diff eGFR Path. Review [facility] Care/Day High 50 Minutes 69481 [facility] Care/Day High 50 Minutes 53912 Orders: acetaminophen-oxycodone, 2 tab(s), Tab, Oral, [id number]-GK, Routine, Start date 02/16/24 14:00:00 EDT heparin, [...] no adenopathy, no tenderness (more content not included)...[facility]:Result Comment: Electronically Signed By: Marisela HERRERA, Elan Humphrey.br\Date and Time Signed: 02/16/24 13:30 [id number] NotePath ReviewPeripheral smear evaluation: - Moderate microcytic and hypochromic anemia with anisopoikilocytosis. - White blood cell and Platelet: Unremarkable. Comment: Recommend clinical correlation and rule out iron deficiency anemia. CPT: 87239 Blair Blood MD 02/21/2024 12:59:29 EDT *NA* (02/16/24 6:12 AM)[facility] Danielle 09-12-2024 NoteProgress Note-Physician Assessment/Plan Goal: 1. [...] Diff [facility] Care/Day High 50 Minutes 09126 2. Essential hypertension (I10: Essential (primary) hypertension) good control continue current medications Ordered: Basic Metabolic Panel CBC w/ Auto Diff [facility] Care/Day High 50 Minutes 16528 3. Hyperlipidemia (E78.5: Hyperlipidemia, unspecified) statin Ordered: Basic Metabolic Panel CBC w/ Auto Diff [facility] Care/Day High 50 Minutes 25436 4. Anemia (D64.9: Anemia, unspecified) hgb has remained stable since transfusion hgb is 7.7. i thought it should be higher than than considering that he received 2 units of PRBC. Ordered: Basic Metabolic Panel CBC w/ Auto Diff [facility] Care/Day High 50 Minutes 18834 5. 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 Stage 3 chronic kidney disease (N18.30: Chronic kidney disease, stage 3 unspecified) overall stable, but noted mild increase in creatinine today contiue to monitor Ordered: Basic Metabolic Panel CBC w/ Auto Diff [facility] Care/Day High 50 Minutes 85084 7. Coronary artery disease (I25.10: Atherosclerotic heart disease of [place] coronary artery withoutangina pectoris) Plavix for secondary prophylaxis Ordered: Basic Metabolic Panel CBC w/ Auto Diff [facility] Care/Day High 50 Minutes 32206 8. Tobacco abuse (Z72.0: Tobacco use) nicotine patch Ordered: Basic Metabolic Panel CBC w/ Auto Diff [facility]Day High 50 Minutes 64863 Orders: insulin glargine, 25 unit(s), Injection-Insulin, SubCutaneous, [...] Hct: 22.2 % Low (more content not included)...[facility] HospitalComment on above:Result Comment: Electronically Signed By: Marsiela HERRERA, Elan Robbins\.br\Date and Time Signed: 02/15/24 13:28 [id number] NoteInterdisciplinary Note - PT PT Evaluation completed with an [facility] score of 16/24. Pt was able to perform bed mobility with Mod I and transfers with CGA/Min A. Pt was able to ambulate 4 feet with FWW, but does fatigue easily. Ptdoes report increased pain in right stump, but still maintained activity well. Pt will need furtherrehabilitation SNF in order to return home again safely[facility] NoteProgress Note-Physician Assessment/Plan 1. 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 due to poor pain control, I discontinued IV morphine and switched to IV dilaudid PT/OT appreciate Vascular team recommendations Ordered: [facility] Care/Day High 50 Minutes 92691 2. Essential hypertension (I10: Essential (primary) hypertension) Better compared to yesterday. continue current management currently on lasix, losartan, metoprolol and imdur. seems to be too much BP meds since BP is about 120s. continue to monitor BP. Ordered: [facility] Care/Day High 50 Minutes 00027 3. Hyperlipidemia (E78.5: Hyperlipidemia, unspecified) continue statin Ordered: [facility] Care/Day High 50 Minutes 14873 4. Anemia (D64.9: Anemia, unspecified) Acute on chronic anemia due to surgical intervention hgb has remained stable since transfusion continue to monitor h and h Ordered: [facility] Care/Day High 50 Minutes 94108 5. 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 continue lantus at current dose continue Jardiance and Glimipiride Ordered: [facility] Care/Day High 50 Minutes 28215 6. Stage 3 chronic kidney disease (N18.30: Chronic kidney disease, stage 3 unspecified) possible due to complication of DM. monitor renal function. creatinine at baseline of 1.9. needs out patient follow up for Nephro recommendation 7. Coronary artery disease (I25.10: Atherosclerotic heart disease of [place] coronary artery withoutangina pectoris) continue plavix and asa as ordered Orders: acetaminophen-oxycodone, 1 tab(s), Tab, Oral, [id number]-VB, Routine, Start date 02/13/24 13:00:00 EDT furosemide, [...] Extremities: right BKA Debbie (more content not included)...[facility] HospitalComment on above: Result Comment: Electronically Signed By: Marisela HERRERA, Elan Robbins\.br\Date and Time Signed: 02/14/24 09:57 [id number] NoteProgress Note-Physician Assessment/Plan 1. 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 appreciate additional recommendation from Vascular team Ordered: [facility] Care/Day High 75 Minutes 83239 2. Essential hypertension (I10: Essential (primary) hypertension) BP on the low side today unsure if this is related to ?Anemia hold Losartan monitor BP, if still low, will bolus. Ordered: [facility] Care/Day High 75 Minutes 91898 3. Hyperlipidemia (E78.5: Hyperlipidemia, unspecified) statin Ordered: [facility] Care/Day High 75 Minutes 02953 4. Anemia (D64.9: Anemia, unspecified) Acute on chronic anemia. acute loss due to post op blood loss transfused 2 units of PRBC today. continue to monitor will hold asa and plavix for now and resume when Anemia improves or stabilized Also hold off on anticoagulation until anemia stabilizes can do scd on left leg Ordered: [facility] Care/Day High 75 Minutes 26539 5. 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 (E11.42: Type 2 diabetes mellitus with diabetic polyneuropathy) poorly controlled diabetic diet continue glimipiride, lantus and januvia Monitor BGL and treate with sliding scale as needed Ordered: [facility] Care/Day High 75 Minutes 45745 Orders: acetaminophen-oxycodone, 1 tab(s), Tab, Oral, [id number], Routine, Start date 02/13/24 13:00:00 EDT amitriptyline, [...] He is now interested in going to [facility] to get PT to enable him be [...] Back: No tenderness, Luzmaria (more content not included)...[facility] on above:Result Comment: Electronically Signed By: Marisela HERRERA, Elan Humphrey.nile\Date and Time Signed: 02/13/24 12:25 [id number] NoteHistory and Physical History of Present Illness [...] mg/dL High (02/12/24 17:15:00) POC Device SN: [id number] (02/12/24 17:15:00) POC User ID: [id number] (02/12/24 17:15:00) POC Username: POC Username (02/12/24 [...] a day (at bedti (more content not included)...[facility] HospitalComment on above:Result Comment: Electronically Signed By: Marisela HERRERA, Elan Humphrey.br\Date and Time Signed: 02/12/24 18:34 [id number] Evaluation + Plan note* Assessment & Plan Note - Mike Montes MD - 01/18/2024 9:04 AM EDTAssociated Problem(s): Cigarette smoker Counseled him on smoking cessation at length. He is willing to quit. [facility]08-15-2024 Miscellaneous Notes* Assessment & Plan Note - Mike Montes MD - 01/18/2024 9:04 AM EDTAssociated Problem(s): Cigarette smoker Counseled him on smoking cessation at length. He is willing to quit. 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 Will do it here at [place]. 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 Will do it here at [place]. [facility]08-15-2024 History of Present illness Narrative* [...] control exposed bone. 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 We [...] 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 ([facility]) Diabetes mellitus type 2, controlled ([facility]) GERD (gastroesophageal reflux disease) Hyperlipidemia Hypertension Past Surgical History: Past Surgical History: Procedure Laterality Date AMPUTATION FOOT / TOE Right 09/29/2023 APPENDECTOMY BYPASS ARTERY FEMORAL POPLITEAL Right 11/08/2023 Performed by Mike Montes MD at [facility] SPECIAL PROC CARDIAC CATHETERIZATION x4 heart stents COLONOSCOPY PROSTATE SURGERY SPINE SURGERY Vascular Invasive Right lower extremity angiogram with intervention/stent Right 11/07/2023 Performed by Mike Montes MD at [facility] CARDIAC CATH LABS Social and Family [...] below-knee amputation. Will do it here at [place]. Myra was seen today for angioplasty rle follow up - procedure at [facility]. yolanda and critical limb ischemia [...] you for your understanding. documented in this encounterLicking [facility] Hospital08-15-2024 Instructions* Patient Instructions* Mike Montes MD - 01/18/2024 8:50 AM EDT Are You Ready To Kick The Habit? Free Tobacco Cessation Resources [facility] Services [facility] provide all employees with free tobacco cessation services that include: Counseling to understand nicotine addiction Education about medications that can help you successfully quit Assistance with developing a plan to quit Call to set up an individual appointment or find out when group classes will be held: [facility]: [phone] [facility]: [phone] [facility]: [phone] [facility]: [phone] Quit Smoking Action Plan and Resources [facility] offers an eight-week, online smoking cessation plan to all [facility] employees, regardless of whether [employer] is your medical insurance provider. Go to www.[employer].com.org/employeewellness and click the Health Risk Assessment and Resources link to get started. In the [employer] menu, click Action Plans instead of Health Risk Assessment to access the Quit Smoking Action Plan. Additional smoking cessation resources are also available to all [facility] employees on the [employer] web page at www.[employer]/quitsmoking. [employer] Tobacco Cessation Program If [employer] is your medical insurance provider, there are more free resources available to you, including: No copays or deductibles on local tobacco cessation counseling services to help you quit Prescription assistance for tobacco cessation medications to help you quit For details about the tobacco cessation program available to [employer] members, go to www.[employer] (Search: Tobacco Cessation Program). [place] Tobacco Quit Line 0-137-EWUW-NOW ( ) is a toll-free, telephonic service that helps [place] residents quit smoking and using tobacco. It is staffed by experts who tailor a quit plan for you and provide you with advice. [place] Tobacco Quit Line 5-983-XTTU-NOW ( ) is a toll-free, telephonic service that helps [place] residents quit smoking and using tobacco. It is staffed by experts who tailor a quit plan for you and provide you with advice. Two weeks of nicotine replacement therapy may be provided at no charge, if needed. Additional Resources These national organizations also offer free information and resources to help you quit tobacco: [place] [employer]--www.cancer.org/healthy/stayawayfromtobacco [place] Heart [employer]--www.heart.org (Search: Quit Smoking) Centers for Disease Control and Prevention--www.cdc.gov/tobacco [place] [employer]--www.lungusa.org documented in this encounterRutland Regional Medical CenterGroove Customer Support [phone] NotePatient Education - Text [place], [place] Cardiovascular PCI DISCHARGE INSTRUCTIONS Diet: ? [...] for any reason without talking to your peoplesoft hcm consultant Site Care: ? Do not remove dressing [...] you are interested in smoking cessation, contact [facility] at [phone], ext. [phone]. ? In the event you are unable to reach your physician, please call [facility] at [phone] andthe switchboard mechanic will assist you. Seek Medicare Care for: ? Bleeding: Apply continuous pressure to the site and Call 911. ? Should the arm or leg become cold, numb, blue or white call your physician immediately. ? Signs of infection are redness, warmth, swelling, getting more sore, colored drainage, fever or chills ? Chest pain ? Blood in your urine or stool ? 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 He has some residual tibial occlusive disease. I discussed with him doing right lower extremity angiogram and intervention. Will do this close to home at [facility]. 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 He has some residual tibial occlusive disease. I discussed with him doing right lower extremity angiogram and intervention. Will do this close to home at [facility]. documented in this encounterLicking Memorial Hospital07-18-2024 History of Present illness Narrative* [...] 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 ([facility]) Diabetes mellitus type 2, controlled ([facility]) GERD (gastroesophageal reflux disease) Hyperlipidemia Hypertension Past Surgical History: Past Surgical History: Procedure Laterality Date AMPUTATION FOOT / TOE Right 09/29/2023 APPENDECTOMY BYPASS ARTERY FEMORAL POPLITEAL Right 11/08/2023 Performed by Mike Montes MD at [facility] SPECIAL PROC CARDIAC CATHETERIZATION x4 heart stents COLONOSCOPY PROSTATE SURGERY SPINE SURGERY Vascular Invasive Right lower extremity angiogram with intervention/stent Right 11/07/2023 Performed by Mike Montes MD at [facility] CARDIAC CATH LABS Social and Family [...] 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 ([facility]) - Primary Current Assessment & Plan We did iliofemoral endarterectomy and femoral above-knee bypass. He has some residual tibial occlusive disease. I discussed with him doing right lower extremity angiogram and intervention. Will do this close to home at [facility]. 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 documented in this encounterLicking Memorial Hospital06-27-2024 History of Present illness Narrative* Guero G Anel, DO - 11/30/2023 11:10 PM EDT Patient Name: Myra Pickard Date of : 1965 Date of Service: 11/30/2023 Facility: [facility] Type of Visit: Skilled Visit Subjective [...] Exam Vitals reviewed. Exam conducted with a cardiopulmonary technician present (). Constitutional: General: He is not [...] BY: Guero Tam DO documented in this encounterLicking [facility] Hospital06-27-2024 Evaluation + Plan note* Assessment & Plan Note - Mike Montes MD - 11/30/2023 9:19 AM EDT Associated Problem(s): Cigarette smoker motivated to quit Counseled on smoking cessation for at least 3 minutes [facility]06-[facility] Miscellaneous Notes* Assessment & Plan Note - Mike Montes MD - 11/30/2023 9:19 AM EDTAssociated Problem(s): Cigarette smoker motivated to quit Counseled on smoking cessation for at least 3 minutes documented in this encounterLicking Memorial Hospital06-27-2024 History of Present illness Narrative* [...] 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 ([facility]) Cigarette smoker motivated to quit Plan Plan [...] Mike Montes MD, BG documented in this encounterLicking Memorial Hospital06-27-2024 Instructions* Patient Instructions* Mike Montes MD - 11/30/2023 8:50 AM EDT Are You Ready To Kick The Habit? Free Tobacco Cessation Resources [facility] Services [facility] Centers provide all employees with free tobacco cessation services that include: Counseling to understand nicotine addiction Education about medications that can help you successfully quit Assistance with developing a plan to quit Call to set up an individual appointment or find out when group classes will be held: [facility]: [phone] [facility]: [phone] [facility]: [phone] [facility]: [phone] Quit Smoking Action Plan and Resources [facility] offers an eight-week, online smoking cessation plan to all [facility] employees, regardless of whether [employer] is your medical insurance provider. Go to [email or web address] and click the Health Risk Assessment and Resources link to get started. In the Milk [employer] menu, click Action Plans instead of Health Risk Assessment to access the Quit Smoking Action Plan. Additional smoking cessation resources are also available to all [facility] employees on the Pkzyb9Bjepso web page at [email or web address]. [employer] Tobacco Cessation [employer] If [employer] is your medical insurance provider, there are more free resources available to you, including: No copays or deductibles on local tobacco cessation counseling services to help you quit Prescription assistance for tobacco cessation medications to help you quit For details about the tobacco cessation program available to [employer] members, go to www.[employer] (Search: Tobacco Cessation Program). [place] Tobacco Quit Line 4-094-TMRC-NOW ( ) is a toll-free, telephonic service that helps [place] residents quit smoking and using tobacco. It is staffed by experts who tailor a quit plan for you and provide you with advice. [place] Tobacco Quit Line 6-167-HRFZ-NOW ( ) is a toll-free, telephonic service that helps [place] residents quit smoking and using tobacco. It is staffed by experts who tailor a quit plan for you and provide you with advice. Two weeks of nicotine replacement therapy may be provided at no charge, if needed. Additional Resources These national organizations also offer free information and resources to help you quit tobacco: [place] Cancer Society--www.cancer.org/healthy/stayawayfromtobacco [place] Heart Association--www.heart.org (Search: Quit Smoking) Centers for Disease Control and Prevention--www.cdc.gov/tobacco [place] Lung Association--www.lungusa.org documented in this encounterLicking Memorial Hospital06-21-2024 History of Present illness Narrative* Guero Harrisasim, DO - 11/24/2023 6:57 PM EDT Patient Name: Myra Pickard Date of : 1965 Date of Service: 11/24/2023 Facility: [facility] Type of Visit: Skilled Visit Subjective Myra Pickard is a 58 y.o. male seen today at longterm facility for therapy visit. Myra is in therapy. He is hoping to be allowed to wt bear on his right foot. His called the director of district office to ask to be allowed to wt [...] Exam Vitals reviewed. Exam conducted with a cardiopulmonary technician present (). Constitutional: General: He is not [...] Status post partial amputation of right foot ([facility]) 2. Other abnormalities of gait and mobility 3. Leg edema 4. Primary hypertension 5. Hypotension due to drugs 6. 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 Diabetic neuropathy His leg [...] BY: Guero Tam DO documented in this encounterSt. Charles HospitalCybrata Networks [facility] [id number] Evaluation + Plan note Future Scheduled Tests Radiology* US PVR Lower EXT Complete Bilat 11/20/23 [facility] 06-07-2024 Miscellaneous Notes* Telephone Encounter - Ashley Colon - 11/10/2023 10:05 AM EDT [facility] for patient's to call back with her Date of so I can update his billing info. documented in this encounterLicking Memorial Hospital06-07-2024 Telephone encounter Note* Telephone Encounter - Ashley Colon - 11/10/2023 10:05 AM EDT [facility] for patient's to call back with her Date of so I can update his billing info. [facility]06-[facility] History of Present illness Narrative* Guero Tam, DO - 11/07/2023 11:59 PM EDT Patient Name: Myra Pickard Date of : 1965 Date of Service: 11/07/2023 Facility: [facility] Type of Visit: Skilled Visit Subjective [...] Assessment / Plan 1. Peripheral arterial disease ([facility]) 2. Delayed surgical wound healing of foot amputation stump ([facility]) 3. Other abnormalities of gait and mobility 4. Status post partial amputation of right foot ([facility]) 5. Pressure ulcer of right ankle, stage [address] ([facility]) 6. Type 2 diabetes mellitus with stage 4 chronic kidney disease, without long- term current use of insulin ([facility]) I checked his medications and he is on Trulicity so he doesn't need Januvia. F/U with vascular surgeon. May need further intervention in leg. Continue therapy to reach MMI. All medications reviewed and are medically necessary. ELECTRONICALLY SIGNED BY: Guero Tam DO documented in this encounterLicking Memorial Hospital05-31-2024 History of Present illness Narrative* Guero Tam DO - 11/03/2023 11:59 PM EDT Patient Name: Myra Pickard Date of : 1965 Date of Service: 11/03/2023 Facility: [facility] Type of Visit: Skilled Visit Subjective [...] Exam Vitals reviewed. Exam conducted with a cardiopulmonary technician present (). Constitutional: General: He is not [...] Status post partial amputation of right foot ([facility]) 2. Pressure ulcer of right ankle, stage 3 ([facility]) 3. Other abnormalities of gait and mobility 4. Delayed surgical wound healing of foot amputation stump ([facility]) Await results of CT angiogram. May need vascular intervention. Continue therapy to reach maximum improvement. Continue other orders as directed. ELECTRONICALLY SIGNED BY: Guero Tam DO documented in this encounterLicking Memorial Hospital05-22-2024 History of Present illness Narrative* Guero Tam DO - 10/25/2023 11:59 PM EDT Patient Name: Myra Pickard Date of : 1965 Date of Service: 10/25/2023 Facility: [facility] Type of Visit: Skilled Visit Subjective [...] Exam Vitals reviewed. Exam conducted with a cardiopulmonary technician present ([facility]ef[facility] Rosas [facility] Constitutional: General: He is not in [...] Status post partial amputation of right foot ([facility]) 2. Osteomyelitis of right foot, unspecified type ([facility]) 3. Muscle weakness (generalized) 4. Other abnormalities of gait and mobility 5. Chronic obstructive pulmonary disease, unspecified COPD type ([facility]) 6. Peripheral arterial disease I'll review medication [...] BY: Guero Tam DO documented in this encounterSt. Charles HospitalLogi-Serve05-21-2024 NoteSinus tachycardia Rightward axis Poor anterior R wave progression QTc 481 [id number] History of Present illness Narrative* Raulito Inman [...] exam, discussion and plan. documented in this encounterOhio State Health System Work Phone: [phone] Instructions* Patient Instructions* Rosemary Benavides LPN - [...] from a cardiac standpoint documented in this encounterOhio State Health System Work Phone: [phone] 618-657905-15-2024 Miscellaneous Notes* Telephone Encounter - Cameron Mg LPN - 10/18/2023 9:30 AM EDT Physician requested stat testing, patient unable to complete testing in [facility]> Spoke to Dr. Montes, states patient can have testing and f/u at [facility]. [place] office staff aware. Faxed orders to [place] office at [phone].Patient unable to complete testing at times that were offered, requested a Monday or Monday. documented in this encounterSt. Charles HospitalCybrata Networks [facility] [id number] Telephone encounter Note* Telephone Encounter - Cameron Mg LPN - 10/18/2023 9:30 AM EDT Physician requested stat testing, patient unable to complete testing in [facility]> Spoke to Dr. Montes, states patient can have testing and f/u at [facility]. [place] office staff aware. Faxed orders to [facility] at [phone].Patient unable to complete testing at times that were offered, requested a Monday or Monday. [facility]05-[facility] Evaluation + Plan note* Assessment & Plan Note - Mike Montes MD - 10/18/2023 8:52 AM EDTAssociated Problem(s): Heavy tobacco smoker >10 cigarettes per day Counseled in length willing to quit. [facility]05-15-2024 Miscellaneous Notes* Assessment & Plan Note - Mike Montes MD - 10/18/2023 8:52 AM EDTAssociated Problem(s): Heavy tobacco smoker >10 cigarettes per day Counseled in length willing to quit. 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 ([facility]) PVR and CTA abdomen and plevis with runoff * Addendum Note - Mike Montes MD - 10/18/2023 8:30 AM EDTAddended by: MIKE MONTES on: 10/18/2023 09:00 AM Modules accepted: Orders documented in this encounterLicking Memorial Hospital05-15-2024 Evaluation + Plan note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 ([facility]) PVR and CTA abdomen and plevis with runoff [facility]05-[facility]-20[facility] History of Present illness Narrative* [...] to get some of his testing from [facility] in [place]. I looked at a stress test andbasic labs. Assessment and Plan: Problem List Heavy tobacco smoker >10 cigarettes per day Current Assessment & Plan Counseled in length willing to quit. 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) - Primary Current Assessment & Plan PVR and CTA abdomen and plevis with runoff Myar was seen today for new patient. 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 documented in this encounterLicking Memorial Hospital05-15-2024 Instructions* Patient Instructions* Mike Montes MD - 10/18/2023 8:30 AM EDT Are You Ready To Kick The Habit? Free Tobacco Cessation Resources [facility] Services [facility] Treatment [facility] provide all employees with free tobacco cessation services that include: Counseling to understand nicotine addiction Education about medications that can help you successfully quit Assistance with developing a plan to quit Call to set up an individual appointment or find out when group classes will be held: [facility]: [phone] [facility]: [phone] [facility]: [phone] [facility]: [phone] Quit Smoking Action Plan and Resources [facility] offers an eight-week, online smoking cessation plan to all [facility] employees, regardless of whether [employer] is your medical insurance provider. Go to [email or web address] and click the Health Risk Assessment and Resources link to get started. In the Milk A Deal menu, click Action Plans instead of Health Risk Assessment to access the Quit Smoking Action Plan. Additional smoking cessation resources are also available to all [facility] employees on the Apcst9Emfkfu web page at [email or web address]. [employer] Tobacco Cessation [employer] If [employer] is your medical insurance provider, there are more free resources available to you, including: No copays or deductibles on local tobacco cessation counseling services to help you quit Prescription assistance for tobacco cessation medications to help you quit For details about the tobacco cessation program available to [employer] members, go to www.[employer].AquaMobile (Search: Tobacco Cessation Program). [place] Tobacco Quit Line 6-071-DWUE-NOW ( ) is a toll-free, telephonic service that helps [place] residents quit smoking and using tobacco. It is staffed by experts who tailor a quit plan for you and provide you with advice. [place] Tobacco Quit Line 4-203-IYGY-NOW ( ) is a toll-free, telephonic service that helps [place] residents quit smoking and using tobacco. It is staffed by experts who tailor a quit plan for you and provide you with advice. Two weeks of nicotine replacement therapy may be provided at no charge, if needed. Additional Resources These national organizations also offer free information and resources to help you quit tobacco: [place] Cancer Society--www.cancer.org/healthy/stayawayfromtobacco [place] Heart Association--www.heart.org (Search: Quit Smoking) Centers for Disease Control and Prevention--www.cdc.gov/tobacco [place] Lung Association--www.lungusa.org documented in this encounterRutland Regional Medical CenterEcoSMART Technologies05-15-2024 Note* Addendum Note - Mike Montes MD - 10/18/2023 8:30 AM EDTAddended by: MIKE MONTES on: 10/18/2023 09:00 AM Modules accepted: Orders [facility] CenterSuryoday [facility]05-14-2024 History of Present illness Narrative* Guero Tam DO - 10/17/2023 11:59 PM EDT Patient Name: Myra Pickard Date of : 1965 Date of Service: 10/17/2023 Facility: [facility] Type of Visit: Skilled Visit Subjective [...] 97% Physical Exam Exam conducted with a cardiopulmonary technician present ([facility] Ros[facility] Constitutional: General: He is not in [...] Status post partial amputation of right foot ([facility]) 2. 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 ([facility]) 3. Type 2 diabetes mellitus with stage 4 chronic kidney disease, without long- term current use of insulin ([facility]) I'm going to add duloxetine 60 mg daily for diabetic neuropathy. Continue therapy. All medications reviewed and are medically necessary. F/U with specialists as directed. ELECTRONICALLY SIGNED BY: Guero Tam DO documented in this encounterRutland Regional Medical CenterEcoSMART Technologies05-07-2024 History of Present illness Narrative* Guero Tam DO - 10/10/2023 11:33 PM EDT Patient Name: Myra Pickard Date of : 1965 Date of Service: 10/10/2023 Facility: [facility] Type of Visit: Skilled Visit Subjective Myra Pickard is a 58 y.o. male seen today at longterm [facility] for therapy visit. Myra is having diarrhea. He had 5 episodes in last day and had an accident in bed. He doesn't haveany pain, blood or fever. There isn't a foul smell reported like one would expect with C. dif. He is on levofloxacin for osteomyelitis. He has an appointment with the director of district office on Monday. He said his colonoscopy was [...] 98% Physical Exam Exam conducted with a cardiopulmonary technician present (Lefty CORREAII). Constitutional: General: He is [...] 2. Other acute osteomyelitis of right foot ([facility]) 3. Status post partial amputation of right foot ([facility]) 4. Chronic obstructive pulmonary disease, unspecified COPD type ([facility]) 5. Abscess of right foot Will try immodium 2mg 2 po Q6 hrs prn for diarrhea. May need to check for C. dif Continue therapy. F/U with director of district office on Monday. All medications reviewed and are medically necessary. May need to adjust diabetic medications in future. ELECTRONICALLY SIGNED BY: Guero Tam, DO documented in this encounterLicking Memorial Hospital05-03-2024 History of Present illness Narrative* Guero Tam DO - 10/06/2023 4:49 PM EDT Patient Name: Myra Pickard Date of : 1965 Date of Service: 10/06/2023 Facility: [facility] Type of Visit: Admission H&P Subjective Myra Pickard is a 58 y.o. male seen today at longterm [facility] for admission H&P. Myra presents to [facility] for therapies following hospitalization for sepsis [...] 96% Physical Exam Exam conducted with a cardiopulmonary technician present ( present). Constitutional: General: He is [...] Status post partial amputation of right foot ([facility]) 3. Type 2 diabetes mellitus with stage 4 chronic kidney disease, without long- term current use of insulin ([facility]) 4. Atherosclerosis of [place] coronary artery of [place] heart without angina pectoris 5. Bacterial sepsis ([facility]) 6. Other acute osteomyelitis of right foot ([facility]) 7. Chronic obstructive pulmonary disease, unspecified COPD type ([facility]) 8. Cigarette smoker 9. BPH with obstruction/lower urinary tract symptoms 10. Gastroesophageal reflux disease, unspecified whether esophagitis present 11. Restless leg syndrome 12. Hyperlipidemia, unspecified hyperlipidemia type 13. Carpal tunnel syndrome, unspecified laterality 14. Heart failure, unspecified HF chronicity, unspecified heart failure type ([facility]) Admit to [facility] for therapies. Full code. Continue medications from hospital. F/U with specialists as directed. Good rehab potential. Planning on discharge to home when able. ELECTRONICALLY SIGNED BY: Guero Tam DO documented in this encounterSt. Charles HospitalCybrata Networks [facility] [id number] Hospital Discharge instructions Follow Up Care 07/13/2023 12:04:02 With:SOLEDAD HERRERA, Yeyo Blum, URL Address: [address] [place] [address]- When: Unknown [facility] [email or web address] 01-22-2024 Evaluation note* Encounter Date Diagnosis Assessment Notes Treatment Notes Treatment Clinical Notes Jun, Hyperlipidemia (ICD-10 - E78.5) idio Other 12-29-2023 Hospital Discharge instructions Patient Education [...] urethra. Follow these instructions at home: Take oqnw-lpw-fjsdvlu and prescription medicines only as told by [...] provider. Document Revised: 12/08/2021 Document Reviewed: 12/08/2021 [employer] Patient Education 2022 [employer]. [facility] Up [facility] 06/01/2023 14:05:36 With:SOLEDAD HERRERA, Yeyo Blum, URL Address: [address] [place] [address]- When: Unknown [facility] 12-12-2023 Evaluation note* Encounter Date Diagnosis Assessment Notes Treatment Notes Treatment Clinical Notes May, 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) idio Other 11-24-2023 Evaluation note* Encounter Date Diagnosis Assessment Notes Treatment Notes Treatment Clinical Notes Apr, Diabetic nephropathy (ICD-10 - E11.21) [facility]io Other 11-07-2023 Evaluation note* Encounter Date Diagnosis Assessment Notes Treatment Notes Treatment Clinical Notes Apr, Left arm pain (ICD-10 - M79.602) [facility]io Other 11-02-2023 Evaluation note* Encounter Date Diagnosis [...] and to have his surgery as scheduled. [facility] Other 10-24-2023 Evaluation note* Encounter Date Diagnosis Assessment Notes Treatment Notes Treatment Clinical Notes Mar, 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) Mar, Atherosclerotic hear t disease of [place] coronary artery without angina pectoris (ICD-10 - I25.10) idio Other 10-11-2023 Evaluation note* Encounter Date Diagnosis [...] yet from [facility] He was found to have developed the [...] to continue to montior this at home. idio Other 10-09-2023 Note [id number] 02-14-2023 Hospital Discharge instructions Patient Education [...] including vitamins, herbs, eye drops, creams, and ibro-iie-cwezgul medicines. Any problems you or family members [...] provider tells you to take them. Taking qfzz-emu-wemrenc medicines, vitamins, herbs, and supplements. Surgery safety [...] provider. Document Revised: 02/15/2022 Document Reviewed: 02/15/2022 [employer] Patient Education 2022 [employer]. [facility]08-28-2023 Hospital Discharge instructions Patient [...] including vitamins, herbs, eye drops, creams, and liaw-kox-kbtlrak medicines. ?Whether you are or may be [...] provider. Document Revised: 02/02/2022 Document Reviewed: 12/25/2020 [employer] Patient Education 2022 [employer] 01/30/2023 11:22:30 Cystoscopy Cystoscopy Cystoscopy is [...] including vitamins, herbs, eye drops, creams, and xbfb-wlb-foqqerv medicines. Any problems you or family members [...] provider tells you to take them. Taking fion-rpp-vioujcn medicines, vitamins, herbs, and supplements. Tests You [...] Follow these instructions at home: Medicines Take gebl-eey-sgfmmtj and prescription medicines only as told by [...] provider. Document Revised: 02/02/2022 Document Reviewed: 01/01/2021 [employer] Patient Education 2022 [employer]. Follow Up Care 11/23/2022 13:02:56 With:SOLEDAD HERRERA, Yeyo Blum, URL Address: [facility] [address], [place] [address]- [phone] When: Unknown Comments:sched cysto/uros [facility] [place] 08-15-2023 Evaluation note* Encounter Date Diagnosis Assessment Notes Treatment Notes Treatment Clinical Notes Jan, Diabetic nephropathy (ICD-10 - E11.21) [facility]io Other 06-29-2023 Evaluation note* Encounter Date Diagnosis [...] reviewed. Nov, Atherosclerotic hear t disease of [place] coronary artery without angina pectoris (ICD-10 - I25.10) Encouraged patient to follow with Cardiology as scheduled. [facility] Other 06-21-2023 Hospital Discharge instructions Patient Education [...] provider. Document Revised: 08/11/2021 Document Reviewed: 05/07/2021 [employer] Patient Education 2021 [employer]. [facility] 09/14/2022 14:23:26 With:SOLEDAD HERRERA, Yeyo Blum, URL Address: [facility] [address] , [place] [address]- When: Unknown [facility] [place] 05-05-2023 Evaluation note* Encounter Date Diagnosis Assessment Notes Treatment Notes Treatment Clinical Notes October, Erectile dysfunction, unspecified erectile dysfunction type (ICD-10 - N52.9) [facility] Other 04-19-2023 Evaluation note* Encounter Date Diagnosis Assessment Notes Treatment Notes Treatment Clinical Notes Sep, 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) [facility] Other 04-12-2023 Evaluation note* Encounter Date Diagnosis Assessment Notes Treatment Notes Treatment Clinical Notes Sep, Atherosclerotic hear t disease of [place] coronary artery without angina pectoris (ICD-10 - I25.10) Sep, 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) [facility] Other 03-20-2023 Evaluation note* Encounter Date Diagnosis Assessment Notes Treatment Notes Treatment Clinical Notes Aug, Diabetic nephropathy (ICD-10 - E11.21) [facility] Other 03-03-2023 Evaluation note* Encounter Date Diagnosis Assessment Notes Treatment Notes Treatment Clinical Notes Aug, Pain in right leg (ICD-10 - M79.604) [facility] Other 03-02-2023 Evaluation note* Encounter Date Diagnosis Assessment Notes Treatment Notes Treatment Clinical Notes Aug, Pain in right leg (ICD-10 - M79.604) [facility] Other 02-20-2023 Evaluation note* Encounter Date Diagnosis Assessment Notes Treatment Notes Treatment Clinical Notes Jul, Intractable episodic headache, unspecified headache type (ICD-10 - R51.9) [facility] Other 02-14-2023 Evaluation note* Encounter Date Diagnosis Assessment Notes Treatment Notes Treatment Clinical Notes Jul, Acute intractable headache, unspecified headache type (ICD-10 - R51.9) [facility] Other 02-08-2023 Evaluation note* Encounter Date Diagnosis Assessment Notes Treatment Notes Treatment Clinical Notes Jul, Headache (ICD-10 - R51.9) [facility] Other 01-30-2023 Evaluation note* Encounter Date Diagnosis [...] medication and we will continue to monitor. [facility] Other 12-21-2022 Evaluation note* Encounter Date Diagnosis Assessment Notes Treatment Notes Treatment Clinical Notes May, Diabetic nephropathy (ICD-10 - E11.21) [facility] Other 11-21-2022 Evaluation note* Encounter Date Diagnosis Assessment Notes Treatment Notes Treatment Clinical Notes Apr, Diabetic nephropathy (ICD-10 - E11.21) [facility] Other 11-15-2022 Evaluation note* Encounter Date Diagnosis Assessment Notes Treatment Notes Treatment Clinical Notes Apr, Pain in right leg (ICD-10 - M79.604) [facility] Other 10-18-2022 Evaluation note* Encounter Date Diagnosis Assessment Notes Treatment Notes Treatment Clinical Notes Mar, Diabetic nephropathy (ICD-10 - E11.21) [facility] Other 09-13-2022 Evaluation note* Encounter Date Diagnosis Assessment Notes Treatment Notes Treatment Clinical Notes Feb, Hypertensive chronic kidney disease with stage 1 through stage 4 chronic kidney disease, or unspecified chronic kidney disease (ICD-10 - I12.9) [facility] Other 09-13-2022 Evaluation note* Encounter Date Diagnosis [...] scheduled. Feb, Atherosclerotic hear t disease of [place] coronary artery without angina pectoris (ICD-10 - [...] is to continue to follow with the [facility] consultant as scheduled. Feb, Pain in right [...] Noted upon review of blood work results. [facility] Other 08-19-2022 Evaluation note* Encounter Date Diagnosis Assessment Notes Treatment Notes Treatment Clinical Notes Jan, Diabetic nephropathy (ICD-10 - E11.21) [facility] Other 08-17-2022 Evaluation note* Encounter Date Diagnosis Assessment Notes Treatment Notes Treatment Clinical Notes Jan, Diabetic nephropathy (ICD-10 - E11.21) [facility] Other 07-21-2022 Evaluation note* Encounter Date Diagnosis Assessment Notes Treatment Notes Treatment Clinical Notes Dec, Diabetic nephropathy (ICD-10 - E11.21) [facility] Other 06-22-2022 Evaluation note* Encounter Date Diagnosis Assessment Notes Treatment Notes Treatment Clinical Notes Nov, Diabetic nephropathy (ICD-10 - E11.21) [facility] Other 05-23-2022 Evaluation note* Encounter Date Diagnosis Assessment Notes Treatment Notes Treatment Clinical Notes October, Diabetic nephropathy (ICD-10 - E11.21) [facility] Other 05-17-2022 Evaluation note* Encounter Date Diagnosis [...] E11.59) October, Atherosclerotic hear t disease of [place] coronary artery without angina pectoris (ICD-10 - I25.10) Patient follows with Dr. Inman. For this October, Other He did quit smoking since July 2020 [facility] Other 05-16-2022 Evaluation note* Encounter Date Diagnosis Assessment Notes Treatment Notes Treatment Clinical Notes October, Hypertensive chronic kidney disease with stage 1 through stage 4 chronic kidney disease, or unspecified chronic kidney disease (ICD-10 - I12.9) October, Stage 3 chronic kidney disease, unspecified whether stage 3a or 3b CKD (ICD-10 - N18.30) [facility] Other 05-06-2022 Evaluation note* Encounter Date Diagnosis Assessment Notes Treatment Notes Treatment Clinical Notes October, Pain in right leg (ICD-10 - M79.604) October, Pain in left leg (ICD-10 - M79.605) [facility]io Other 04-20-2022 Evaluation note* Encounter Date Diagnosis Assessment Notes Treatment Notes Treatment Clinical Notes Sep, Diabetic nephropathy (ICD-10 - E11.21) [facility] Other 04-19-2022 Evaluation note* Encounter Date Diagnosis Assessment Notes Treatment Notes Treatment Clinical Notes Sep, Anxiety (ICD-10 - F41.9) Sep, Hypertensive chronic kidney disease with stage 1 through stage 4 chronic kidney disease, or unspecified chronic kidney disease (ICD-10 - I12.9) [facility] Other 03-07-2022 Evaluation note* Encounter Date Diagnosis Assessment Notes Treatment Notes Treatment Clinical Notes Aug, Anxiety (ICD-10 - F41.9) [facility] Other 02-22-2022 Evaluation note* Encounter Date Diagnosis [...] 12 pound weight loss from last visit. [facility] Other 01-19-2022 Evaluation note* Encounter Date Diagnosis Assessment Notes Treatment Notes Treatment Clinical Notes Jun, Diabetic nephropathy (ICD-10 - E11.21) idio Other Consult note Author Amina Fagan [facility] Note Date/Time August 11, 2024 2:18 pm [facility] [address] [place] [address] Nephrology Consult Note Signed Patient: Myra Pickard SR MR#: [id number] : 1965 Acct:[id number] Age/Sex: 59 / M Adm Date: 5 Loc: Room: [address] [place] [address] Type: ADM IN Attending Dr: Kevon Viera [...] reviewed 12 system review is negative today [facility] Medical History Chronic obstructive pulmonary disease, unspecified [...] mass Atrial fibrillation Atherosclerotic heart disease of [place] coronary artery with unspecified angina pectoris Anxiety Hx of exercise stress test Family history of premature CAD Reports mother had quadruple bypass at age of 45 Myocardial infarction mild Fibromyalgia Chronic back pain Sleep apnea Neuropathy Cataract Peripheral artery disease Hyperlipidemia Diabetes Hypertension Surgical History History of below-knee amputation of right lower extremity 02/2024 [facility] by Dr. Simon Hernández Vascular History of [...] [History Confirmed 08/11/24] flash glucose scanning reader (SnapLogicStyle Jigar 2 [place]) #1 ea 12/28/23 [Rx Confirmed 08/11/24] flash [...] 32 gauge x /32 (Comfort EZ Pen [place]) #100 ea 04/15/24 [Rx Confirmed 08/11/24] hydroxyzine [...] 25 Mg Tablet) 25 mg PO HS [facility] Stop: 08/11/25 21:59 Aspirin (Aspirin 81 Mg Tablet.) 81 mg PO DAILY [facility] Stop: 08/11/25 08:59 Last Admin: 08/11/24 09:13 Dose: 81 mg Atorvastatin Calcium (Atorvastatin 80 Mg Tablet) 80 mg PO DAILY [facility] Stop: 08/11/25 08:59 Last Admin: 08/11/24 09:14 Dose: 80 mg Budesonide/Formoterol Fumarate (Budesonide/Formoterol 160-4.5 Mcg 60 Puff/6 Gm Hfa.Aer.Ad) 2 puff INHALATION BID [facility] Stop: 08/11/25 08:59 Last Admin: 08/11/24 09:41 Dose: 2 puff Calcium Carbonate (Calcium Carbonate/Vitamin D3 500 Mg/200 Unit Tablet) 2 tab PO TID.WITH.MEALS [facility] Stop: 08/11/25 07:59 Last Admin: 08/11/24 13:40 Dose: 2 tab Clopidogrel Bisulfate (Clopidogrel Bisulfate 75 Mg Tablet) 75 mg PO DAILY [facility] Stop: 08/11/25 08:59 Last Admin: 08/11/24 [...] 5,000 Unit/Ml Vial) 5,000 unit SUBCUT Q12HR [facility] Stop: 08/11/25 08:59 Last Admin: 08/11/24 [...] 300 Units/3 Ml) 0 units SUBCUT TID.WM.HS [facility]; Protocol Stop: 08/11/25 07:59 Last Admin: 08/11/24 13:40 Dose: Not Given Ipratropium Nora (Ipratropium Nora 0.5 Mg/2.5 Ml Vial.Neb) 0.5 mg INHALATION [...] 40 Mg Tablet.Dr) 40 mg PO BID [facility] Stop: 08/11/25 08:59 Last Admin: 08/11/24 09:13 Dose: 40 mg Pregabalin (Pregabalin 75 Mg Capsule) 75 mg PO TID [facility] Stop: 02/07/25 08:59 Last Admin: 08/11/24 13:40 Dose: 75 mg Ropinirole HCl (Ropinirole 1 Mg Tablet) 1 mg PO TID [facility] Stop: 08/11/25 08:59 Last Admin: 08/11/24 13:40 Dose: 1 mg Tamsulosin HCl (Tamsulosin 0.4 Mg Cap.Er.24h) 0.4 mg PO BID [facility] Stop: 08/11/25 08:59 Last Admin: 08/11/24 [...] Appearance Clear Urine pH 5.5 Ur Specific [place] 1.024 Urine Protein Negative Urine Glucose (UA) 500 H Urine Ketones Negative Urine Occult Blood Negative Urine Nitrite Negative Ur Leukocyte Esterase Negative Radiology Impressions Impressions - last 24 hours: Impressions Chest X-Ray 08/11/24 04:22 IMPRESSION: No acute process. Impression dictated by: Sudeep Lind M.D.08/11/2024 10:06 AM Dictation Location: [place] [address] 08/11/24 04:22 IMPRESSION: No acute [...] Sudeep Lind M.D.08/11/2024 10:06 AM Dictation Location: [place] [address] Any impression(s) listed above is documentation that [...] <Electronically signed by Amina Fagan MD> 08/11/24 1419 [facility] Work Phone: [place] [address] Cardiology Consult Note Signed Patient: Myra Pickard SR MR#: [id number] : 1965 Acct:[id number] Age/Sex: 59 / M Adm Date: 5 Loc: Room: [address] [place] [address] Type: ADM INOo Attending Dr: Abdullahi Canchola DO Copies to: DO Pascale Guzman MD, [facility] Abdullahi Canchola, ~ Cardiology HPI History of [...] post right below-knee amputation February 2024 in [place]. He has COPD followed by pulmonary medicine in [place]. His EKG showed no acute changes his [...] he gets seen first by his primary [employer] h[facility] consultant in the office, I emphasized to the [...] symptoms. Other review of system was unremarkable [facility] Medical History Hypokalemia Hypocalcemia Hypomagnesemia Vitamin B12 [...] mass Atrial fibrillation Atherosclerotic heart disease of [place] coronary artery with unspecified angina pectoris Anxiety Hx of exercise stress test Family history of premature CAD Reports mother had quadruple bypass at age of 45 Myocardial infarction mild Fibromyalgia Chronic back pain Sleep apnea Neuropathy Cataract Peripheral artery disease Hyperlipidemia Diabetes Hypertension Surgical History History of below-knee amputation of right lower extremity 02/2024 [facility] by Dr. Simon Hernández Vascular History of [...] 07/12/23[History Confirmed 10/10/24] flash glucose scanning reader (SnapLogicStyle Jigar 2 [place]) #1 ea 12/28/23 [Rx Confirmed 10/10/24] flash [...] 32 gauge x 32 (Comfort EZ Pen [place]) #100 ea 04/15/24 [Rx Confirmed 10/10/24] hydroxyzine [...] Lymph # (Auto) 2.0 2.0 (1.00-4.8) x10E3/uL [place] # (Auto) 0.8 0.9 H (0.0-0.8) x10E3/uL [...] RCA, nuclear stress test February 2024 in [place] was normal Plan: Continue aggressive risk factors modifications, tobacco cessation, dual antiplatelet therapy, high intensity statin Code(s): I25.10 - Atherosclerotic heart disease of [place] coronary artery without angina pectoris Documented By: Pascale Arnold MD, [facility] 5 0947 Signed By: 10/11/24 0956 [facility] João Powell [facility] March 06, 2024 4:23pm Note Date/Time March 06, 2024 3: 58pm [facility] [address] [place] [address] Discharge Summary Signed Patient: Myra Pickard SR MR#: [id number] : 1965 Acct:[id number] Age/Sex: 58 / M Adm Date: 4 Loc: Room: 6C5137-[address]: João Powell MD Copies to: [...] neuropathy status post right BKA recently at [facility]. He presents today with episodes of [...] Instructions: As directed (DME) FreeStyle Jigar 2 [place] Misc See Rx Instructions .ROUTE Qty: 1 [...] % (Auto) N/A, Lymph % (Auto) N/A, Camp % (Auto) N/A, Eos % (Auto) N/A, Baso % (Auto) N/A, Nucleat RBC Rel Count N/A, Neut # (Auto) N/A, Lymph # (Auto) N/A, Camp # (Auto) N/A, Eos # (Auto) N/A, [...] 106 Documented By: João Powell MD 03/06/24 4842 Signed By: <Electronically signed by João Powell MD> 03/06/24 8474 [facility] Work Phone: Discharge summary Author Kevon Viera [facility] Note Date/Time August 13, 2024 2:3 9pm [facility] [address] [place] [address] Discharge Summary Signed Patient: Myra Pickard SR MR#: [id number] : 1965 Acct:[id number] Age/Sex: 59 / M Adm Date: 5 Loc: 3T Room: [address] [place] [address]: Kevon Viera MD Copies to: [...] (DME) pen needle, diabetic [Comfort EZ Pen [place]] 32 gauge x 5/32 needle See Rx [...] Instructions: As directed (DME) FreeStyle Jigar 2 [place] Misc See Rx Instructions .Route Qty: 1 0RF Rx Instructions: As directed amitriptyline 25 mg tablet 25 mg PO DAILY magnesium oxide 400 mg magnesium tablet 400 mg PO DAILY Qty: 90 1RF Ajovy Autoinjector 225 mg/1.5 mL auto-injector 225 mg subcut [facility]MONTH [facility] O[facility] 75 mg tablet,disintegrating 75 [...] signed by Kevon Viera MD> 08/13/24 143 [facility] Work Phone: [place] [address] Discharge Summary Signed Patient: Myra Pickard SR MR#: [id number] : 1965 Acct:[id number] Age/Sex: 59 / M Adm Date: 5 Loc: Room: [address] [place] [address]: Abdullahi Canchola DO Copies to: DO Abdullahi Guzman DO~ Providers Date of Discharge: 10/11/24 Discharging Provider: Abdullahi Canchola Primary Care Provider: Teresa [place] Consults: 10/10/24 18:25 Consult to Cardiology Routine Comment: Consulting Provider: [facility] Reason For Exam: chest pain Has [...] (DME) pen needle, diabetic [Comfort EZ Pen [place]] 32 gauge x 5/32 needle See Rx [...] Instructions: As directed (DME) FreeStyle Jigar 2 [place] Misc See Rx Instructions .Route Qty: 1 0RF Rx Instructions: As directed Discontinued valsartan-hydrochlorothiazide [Diovan HCT] 160-12.5 mg tablet 1 tab PO DAILY Follow Up: [facility] [Outside] (Once Insurance approves outpatient Stress Test [...] % (Auto) 58.3, Lymph % (Auto) 25.5, Camp % (Auto) 10.9, Eos % (Auto) 4.0, Baso % (Auto) 1.3, Nucleat RBC Rel Count 0.1, Neut # (Auto) 4.6, Lymph # (Auto) 2.0, Camp # (Auto) 0.9 H, Eos # (Auto) [...] Neut % (Auto) 61.8, Lymph % (Auto)23.4, Camp % (Auto) 9.5, Eos % (Auto) 4.0, Baso % (Auto) 1.3, Nucleat RBC Rel Count 0.2, Neut # (Auto) 5.3, Lymph # (Auto) 2.0, Camp # (Auto) 0.8, Eos # (Auto) 0.3, [...] 10/11/24 13 40 Signed By: 10/11/24 1358 [facility] Author Abdullahi Canchola [facility] Note Date/Time October 11, 2024 1:58pm [facility] [address] [place], [place] [id number] Discharge Summary Signed Patient: Myra Pickard SR MR#: [id number] : 1965 Acct:[id number] Age/Sex: 59 / M Adm Date: 5 Loc: Room: [address] [place] [address]: Abdullahi Canchola DO Copies to: DO Abdullahi Guzman, ~ Providers Date of Discharge: 10/11/24 Discharging Provider: Abdullahi Canchola Primary Care Provider: Teresa [place] Consults: 10/10/24 18:25 Consult to Cardiology Routine Comment: Consulting Provider: [facility] Reason For Exam: chest pain Has [...] (DME) pen needle, diabetic [Comfort EZ Pen [place]] 32 gauge x 5/32 needle See Rx [...] Instructions: As directed (DME) FreeStyle Jigar 2 [place] Misc See Rx Instructions .Route Qty: 1 0RF Rx Instructions: As directed Discontinued valsartan-hydrochlorothiazide [Diovan HCT] 160-12.5 mg tablet 1 tab PO DAILY Follow Up: [facility] [Outside] (Once Insurance approves [...] % (Auto) 58.3, Lymph % (Auto) 25.5, Camp % (Auto) 10.9, Eos % (Auto) 4.0, Baso % (Auto) 1.3, Nucleat RBC Rel Count 0.1, Neut # (Auto) 4.6, Lymph # (Auto) 2.0, [place] # (Auto) 0.9 H, Eos # (Auto) [...] % (Auto) 61.8, Lymph % (Auto) 23.4, Camp % (Auto) 9.5, Eos % (Auto) 4.0, Baso % (Auto) 1.3, Nucleat RBC Rel Count 0.2, Neut # (Auto) 5.3, Lymph # (Auto) 2.0, Camp # (Auto) 0.8, Eos # (Auto) 0.3, [...] <Electronically signed by Abdullahi Canchola DO> 10/11/24 0882 [facility] Work Phone: Evaluation + Plan note Future Appointments Appointment Date:12/21/2022 11:00:00 AM Scheduled Provider: Location:[facility] Appointment Type:URO Nurse Visit Appointment Date:01/30/2023 10:30:00 AM Scheduled Provider:Yeyo ROWE MD [facility] Appoint[facility] Type:URO Office Visit [facility] Evaluation + Plan note Future Appointments Appointment Date:01/30/2023 10:15:00 AM Scheduled Provider:[facility]O Office Visit [facility] Evaluation + Plan note Future Appointments Appointment Date:02/01/2023 10:00:00 AM Scheduled Provider: Location:[facility] Appointment Type:Urology CALL PAT FT Appointment Date:02/08/2023 09:00:00 AM Scheduled Provider: Location:[facility] Appointment Type:Urology FT Appointment Date:02/14/2023 09:15:00 AM Scheduled Provider: Location:[facility] Appointment Type:Urology FT [facility] evaluation + Plan note Future Appointments Appointment Date:02/14/2023 09:15:00 AM Scheduled Provider: Location:[facility] App[facility]ments Appointment Date:03/20/2023 08:45:00 AM Scheduled Provider: [facility] Nurse Visit Appointment Date:04/05/2023 08:00:00 AM Scheduled Provider:Yeyo ROWE MD Location:[facility] App[facility]ment [facility]O [facility] Future Appointments Appointment Date:05/03/2023 08:45:00 AM Scheduled Provider:Yeyo ROWE MD Location:[facility] Appointment Type:URO Office Visit [facility] Evaluation + Plan note Future Appointments Appointment Date:07/03/2023 10:15:00 AM Scheduled Provider:Yeyo ROWE MD Location[facility] Appointment Type:URO Office Visit [facility] evaluation + Plan note Future Appointments Appointment Date:10/23/2023 09:30:00 AM Scheduled Provider:Mike Montes MD [facility]FT[facility] [employer] Other Evaluation noteNo assessment information available [facility] Work Phone: evaluaijnk note* Diagnosis History of PTCA Postsurgical percutaneous transluminal coronary angioplasty status Hyperlipidemia, unspecified hyperlipidemia type Encounter for pre-operative cardiovascular clearance Former smoker Personal history of tobacco use, presenting hazards to health documented in this encounter [facility] Work Phone: Evaluation note* Diagnosis [...] disease chron ic Diabetes chronic Hypertension chronic [facility] Work Phone: evaluation note* Diagnosis Onset Date [...] chronic Altered mental status acute Hypothermia acute [facility] Work Phone: Evaluation note* Diagnosis [...] Restless legs syndrome acute Syncope acute [facility] Work Phone: Evaluation note* Diagnosis Onset [...] imaging acute GERD (gastroesophageal reflux disease) acute [facility] Work Phone: Evaluation note* Diagnosis Onset [...] GERD (gastroesophageal reflux disease) acute Diabetes acute [facility] Work Phone: Evaluation note* Diagnosis Shortness of breath documented in this encounter [facility] Work Phone: Evaluation note* Diagnosis Abscess of right foot- Primary Cellulitis and abscess of foot, except toes Status post partial amputation of right foot ([facility]) Type 2 diabetes mellitus with stage 4 chronic kidney disease, without long-term current use of insulin ([facility]) Atherosclerosis of [place] coronary artery of [place] heart without angina pectoris Bacterial sepsis ([facility]) Bacteremia Other acute osteomyelitis of right foot ([facility]) Chronic obstructive pulmonary disease, unspecified COPD type ([facility]) Cigarette smoker Tobacco use disorder BPH with obstruction/lower urinary tract symptoms Gastroesophageal reflux disease, unspecified whether esophagitis present Restless leg syndrome Restless legs syndrome (RLS) Hyperlipidemia, unspecified hyperlipidemia type Carpal tunnel syndrome, unspecified laterality Heart failure, unspecified HF chronicity, unspecified heart failure type ([facility]) [facility] Diagnosis Diarrhea, unspecified type- Primary Other acute osteomyelitis of right foot ([facility]) Status post partial amputation of right foot ([facility]) Chronic obstructive pulmonary disease, unspecified COPD type ([facility]) Abscess of right foot Cellulitis and abscess of foot, except toes Type 2 diabetes mellitus with stage 4 chronic kidney disease, without long-term current use of insulin ([facility]) [facility] Diagnosis Status post partial amputation of right foot ([facility])- Primary Pressure ulcer of right ankle, stage 3 ([facility]) Other abnormalities of gait and mobility Delayed surgical wound healing of foot amputation stump ([facility]) [facility] Diagnosis 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 ([facility])- Primary Poor circulation Unspecified circulatory system disorder Heavy tobacco smoker >10 cigarettes per day [facility] Diagnosis Status post partial amputation of right foot ([facility])- Primary 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) [facility] Diagnosis Peripheral arterial disease ([facility])- Primary Unspecified peripheral vascular disease Delayed surgical wound healing of foot amputation stump ([facility]) Other abnormalities of gait and mobility Status post partial amputation of right foot ([facility]) Pressure ulcer of right ankle, stage 3 ([facility]) Type 2 diabetes mellitus with stage 4 chronic kidney disease, without long-term current use of insulin ([facility]) [facility] Diagnosis 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 ([facility])- Primary Status post partial amputation of right foot ([facility])- Primary Osteomyelitis of right foot, unspecified type ([facility]) Muscle weakness (generalized) Other abnormalities of gait and mobility Chronic obstructive pulmonary disease, unspecified COPD type ([facility]) Peripheral arterial disease ([facility]) Unspecified peripheral vascular disease 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 ([facility]) [facility] Diagnosis Status post partial amputation of right foot ([facility] Primary Other abnormalities of gait and mobility Leg edema Edema Primary hypertension Unspecified essential hypertension Hypotension due to drugs Other iatrogenic hypotension 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 ([facility]) Diabetic polyneuropathy associated with type 2 diabetes mellitus ([facility]) [facility] Diagnosis 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 ([facility])- Primary Cigarette smoker motivated to quit [facility] Diagnosis 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 ([facility] Primary 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 ([facility]) Delayed surgical wound healing of foot amputation stump ([facility]) Other abnormalities of gait and mobility [facility] Diagnosis 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 ([facility] Primary [facility] Diagnosis 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 ([facility])- Primary Cigarette smoker Tobacco use disorder [facility] Diagnosis Diabetic polyneuropathy associated with type 2 diabetes mellitus ([facility])- Primary Disorientation Other general symptoms Other abnormalities of gait and mobility Status post partial amputation of right foot ([facility]) Atherosclerosis of [place] coronary artery of [place] heart without angina pectoris Atrial fibrillation ([facility]) Primary hypertension Unspecified essential hypertension [facility] Diagnosis Diabetic polyneuropathy associated with type 2 diabetes mellitus ([facility] Primary Encounter for orthopedic aftercare following surgical amputation Other abnormalities of gait and mobility Restless leg syndrome Restless legs syndrome (RLS) [facility] Diagnosis 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 ([facility] Primary Poor circulation Unspecified circulatory system disorder Heavy tobacco smoker >10 cigarettes per day 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 ([facility])- Primary Cigarette smoker motivated to quit 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) Other abnormalities of gait and mobility Muscle spasm Spasm of muscle [facility] Diagnosis PAD (peripheral artery disease) ([facility])- Primary Unspecified peripheral vascular disease [facility] Diagnosis Encounter for orthopedic aftercare following surgical amputation- Primary Other abnormalities of gait and mobility BPH with obstruction/lower urinary tract symptoms Diabetic polyneuropathy associated with type 2 diabetes mellitus ([facility]) Atherosclerosis of [place] coronary artery of [place] heart without angina pectoris Heart failure, unspecified HF chronicity, unspecified heart failure type ([facility]) Primary hypertension Unspecified essential hypertension Peripheral arterial disease ([facility]) Unspecified peripheral vascular disease Chronic obstructive pulmonary disease, unspecified COPD type ([facility]) Gastroesophageal reflux disease, unspecified whether esophagitis present Muscle weakness (generalized) [facility] Diagnosis Onset Date Resolution Status Admit Date Acute kidney injury superimp osed on CKD acute August 11, 2024 5:39am Diabetes acute August 11 5:39am Hypocalcemia acute August 11, 2 025 5:39am Left sided numbness acute August 11, 2024 5:39am Paresthesias acute August 11, 2 025 5:39am Hypertension chronic August 11 2 025 5:39am [facility] Work Phone: Evaluation note* Diagnosis Chest pain, unspecified type documented in this encounter [facility] Work Phone: History and physical note Author Mike Burleson [facility] Note Date/Time April 23, 2024 1:50pm [facility] [address] [place] [address] Gastroenterology H&P Signed Patient: Myra Pickard SR MR#: [id number] : 1965 Acct:[id number] Age/Sex: 58 / M Adm Date: 4 Loc: Room: Type: [facility] Attending Dr: Mike Burleson MD Copies to: [...] MD Documented By: Mike Burleson MD 04/23/24 5093 Signed By: <Electronically signed by Mike Burleson MD> 04/23/24 6398 [facility] Work Phone: History and physical note Author Marge Andino [facility] Note Date/Time August 11, 2024 7:24 am [facility] [address] [place] [address] Hospitalist H&P Signed Patient: Myra Pickard SR MR#: [id number] : 1965 Acct:[id number] Age/Sex: 59 / M Adm Date: 5 Loc: Room: [address] [place] [address] Type: ADM IN Attending Dr: Kevon Viera [...] neck without acute findings -official report pending [facility] Medical History Chronic obstructive pulmonary disease, unspecified [...] mass Atrial fibrillation Atherosclerotic heart disease of [place] coronary artery with unspecified angina pectoris Anxiety Hx of exercise stress test Family history of premature CAD Reports mother had quadruple bypass at age of 45 Myocardial infarction mild Fibromyalgia Chronic back pain Sleep apnea Neuropathy Cataract Peripheral artery disease Hyperlipidemia Diabetes Hypertension Surgical History History of below-knee amputation of right lower extremity 02/2024 [facility] by Dr. Simon Hernández Vascular History of [...] [History Confirmed 08/11/24] flash glucose scanning reader (SnapLogicStyle Jigar 2 [place]) #1 ea 12/28/23 [Rx Confirmed 08/11/24] flash [...] 32 gauge x 5/32 (Comfort EZ Pen [place]) #100 ea 04/15/24 [Rx Confirmed 08/11/24] hydroxyzine [...] 04:15 Lymph % (Auto) N/A 08/11/24 04:15 Camp % (Auto) N/A 08/11/24 04:15 Eos % (Auto) N/A 08/11/24 04:15 Baso % (Auto) N/A 08/11/24 04:15 Nucleat RBC Rel Count N/A 08/11/24 04:15 Neut # (Auto) N/A 08/11/24 04:15 Lymph # (Auto) N/A 08/11/24 04:15 Camp # (Auto) N/A 08/11/24 04:15 Eos # [...] by Marge Andino MD> 08/11/24 0724 [facility] Work Phone: [place] [address] Hospitalist H&P Signed Patient: Myra Pickard SR MR#: [id number] : 1965 Acct:[id number] Age/Sex: 59 / M Adm Date: 5 Loc: Room: [address] [place] [address] Type: ADM INOo Attending Dr: Abdullahi Canchola [...] reports multivessel PCI'saround the time of at [facility]. He hasstent information cards that are [...] Continue to trend cardiac markers, routine echocardiogram. 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 Simon Hernández Vascular History of [...] 07/12/23[History Confirmed 10/10/24] flash glucose scanning reader (Altrujayle Jigar 2 [place]) #1 ea 12/28/23 [Rx Confirmed 10/10/24] flash [...] 32 gauge x 5/32 (Comfort EZ Pen [place]) #100 ea 04/15/24 [Rx Confirmed 10/10/24] hydroxyzine [...] % (Auto) 23.4 % (.) 10/10/24 15:42 Camp % (Auto) 9.5 % (.) 10/10/24 15:42 Eos % (Auto) 4.0 % (.) 10/10/24 15:42 Baso % (Auto) 1.3 % (.) 10/10/24 15:42 Nucleat RBC Rel Count 0.2 /100 WBC (0-0.5) 10/10/24 15:42 Neut # (Auto) 5.3 x10E3/uL (1.8-7.7) 10/10/24 15:42 Lymph # (Auto) 2.0 x10E3/uL (1.00-4.8) 10/10/24 15:42 Camp # (Auto) 0.8 x10E3/uL (0.0-0.8) 10/10/24 15:42 [...] 10/10/24 18 33 Signed By: 10/11/24 1358 [facility] Author Abdullahi Canchola [facility] Note Date/Time October 11, 2024 1:58pm [facility] [address] [place] [address] Hospitalist H&P Signed Patient: Myra Pickard MR#: [id number] : 1965 Acct:[id number] Age/Sex: 59 / M Adm Date: 5 Loc: Room: [address] [place] [address] Type: ADM INOo Attending Dr: Abdullahi Canchola [...] multivessel PCI's around the time of at [facility]. He hasstent information cards that are [...] Continue to trend cardiac markers, routine echocardiogram. 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 Simon Hernández Vascular History of [...] [History Confirmed 10/10/24] flash glucose scanning reader (SnapLogicStyle Jigar 2 [place]) #1 ea 12/28/23 [Rx Confirmed 10/10/24] flash [...] 32 gauge x 5/32 (Comfort EZ Pen [place]) #100 ea 04/15/24 [Rx Confirmed 10/10/24] hydroxyzine [...] % (Auto) 23.4 % (.) 10/10/24 15:42 Camp % (Auto) 9.5 % (.) 10/10/24 15:42 Eos % (Auto) 4.0 % (.) 10/10/24 15:42 Baso % (Auto) 1.3 % (.) 10/10/24 15:42 Nucleat RBC Rel Count 0.2 /100 WBC (0-0.5) 10/10/24 15:42 Neut # (Auto) 5.3 x10E3/uL (1.8-7.7) 10/10/24 15:42 Lymph # (Auto) 2.0 x10E3/uL (1.00-4.8) 10/10/24 15:42 Camp # (Auto) 0.8 x10E3/uL (0.0-0.8) 10/10/24 15:42 [...] <Electronically signed by Abdullahi Canchola DO> 10/11/24 0435 [facility] Work Phone: History general Narrative [...] repair 08/2016 Surgical History cardiac cath [facility] 04/02/18 Surgical History Lt LE iliac DSA, angioplasty & stenting 09/27/2018 Surgical History Left Angiogram with one stent - Dr. Boss 07/2020 Hospitalization History Deep Depression, Anxiety; [facility] 11-11-10 Hospitalization History [facility] hypoxemia and hyper capnic respirtory failure 11/11/16 Hospitalization History chest pain [facility] 04/02/18 idio Other History of Present illness NarrativeReturns in [...] [facility] Work Phone: History of [...] medication side effects. [facility] 600 DO Work Phone: History of Present [...] medication regimen. He denies medication side effects. [facility] 250 DO Work Phone: Hospital course Narrative No data available for this section [facility] Discharge instructions No data available for this section [facility] Discharge instructionsAmbulatory Orders* Referral to Pain Management Time Frame: 08/30/24, Location: None Selected [facility] Work Phone: InstructionsNot on filedocumented in [...] for this section [facility] Progress note Author Kevon Viera [facility] Note Date/Time August 11, 2024 1:21 pm [facility] [address] [place] [address] Progress Note Signed Patient: Myra Pickard SR MR#: [id number] : 1965 Acct:[id number] Age/Sex: 59 / M Adm Date: 5 Loc: 3T Room: 5F1187-7 Type: ADM IN Attending Dr: Kevon Viera [...] signed by Kevon Viera MD> 08/11/24 1321 [facility] Work Phone: Progress note Author Maurice Francis [facility] Note Date/Time August 12, 2024 11: 47am [facility] [address] [place] [address] Nephrology Progress Note Signed Patient: Myra Pickard SR MR#: [id number] : 1965 Acct:[id number] Age/Sex: 59 / M Adm Date: 5 Loc: 3T Room: 9P6799-3 Type: ADM IN Attending Dr: Kevon Viera [...] Skin: No rashes , warm to touch 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,Alert, 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 Musculoskeletal: No swelling [...] 1,000 mls @ 125 mls/hr IV .Q8H [facility] Stop: 08/11/25 07:14 Last Admin: 08/12/24 08:26 Dose: 125 mls/hr Ferric Sodium Gluconate Complex 250 mg/ Sodium Chloride 270 mls @ 135 mls/hr IVQAM [facility] Stop: 08/14/24 10:59 Last Admin: 08/12/24 09:19 Dose: 135 mls/hr Insulin Aspart (Insulin Aspart 300 Units/3 Ml) 0 units SUBCUT TID.WM.HS [facility]; Protocol Stop: 08/11/25 07:59 Last Admin: 08/12/24 08:27 Dose: Not Given Ipratropium Nora (Ipratropium Nora 0.5 Mg/2.5 Ml Vial.Neb) 0.5 mg INHALATION QID.RESP [facility] Stop: 08/11/25 07:59 Last Admin: 08/12/24 08:51 Dose: 0.5 mg Isosorbide Mononitrate (Isosorbide Mononitrate 24hr Er 30 Mg Tab.Er.24h) 30 mg PO DAILY [facility] Stop: 08/11/25 08:59 Last Admin: 08/12/24 [...] 1 Mg Tablet) 1 mg PO TID [facility] Stop: 08/11/25 08:59 Last Admin: 08/12/24 [...] signed by Maurice Francis MD> 08/12/24 1147 [facility] Work Phone: Progress note Author Kevon Viera [facility] Note Date/Time August 12, 2024 3:1 6pm [facility] [address] [place] [address] Hospitalist Progress Note Signed Patient: Myra Pickard MR#: [id number] : 1965 Acct:[id number] Age/Sex: 59 / M Adm Date: 5 Loc: 3T Room: [address] [place] [address] Type: ADM IN Attending Dr: Kevon Viera [...] 1 units TID.WM.HS [facility] Administration Protocol Ipratropium Nora 0.5 mg 08/11/24 08:00 08/12/24 12:31 Ipratropium Nora 0.5 Mg/2.5 Ml Vial.Neb INHALATION 08/11/25 07:59 [...] <Electronically signed by Kevon Viera MD> 08/12/24 1700 [facility] Work Phone: Progress note Author Maurice Francis [facility] Note Date/Time August 13, 2024 11: 06am [facility] [address] [place] [address] Nephrology Progress Note Signed Patient: Myra Pickard SR MR#: [id number] : 1965 Acct:[id number] Age/Sex: 59 / M Adm Date: 5 Loc: Room: [address] [place] [address] Type: ADM IN Attending Dr: Kevon Viera [...] Skin: No rashes , warm to touch 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,Alert, 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 Musculoskeletal: No swelling [...] 25 Mg Tablet) 25 mg PO HS [facility] Stop: 08/11/25 21:59 Last Admin: 08/12/24 21:48 Dose: 25 mg Aspirin (Aspirin 81 Mg Tablet.) 81 mg PO DAILY [facility] Stop: 08/11/25 08:59 Last Admin: 08/13/24 [...] 300 Units/3 Ml) 0 units SUBCUT TID.WM.HS [facility]; Protocol Stop: 08/11/25 07:59 Last Admin: 08/13/24 08:25 Dose: 1 units Ipratropium Nora (Ipratropium Nora 0.5 Mg/2.5 Ml Vial.Neb) 0.5 mg INHALATION QID.RESP [facility] Stop: 08/11/25 07:59 Last Admin: 08/13/24 07:54 Dose: 0.5 mg Isosorbide Mononitrate (Isosorbide Mononitrate 24hr Er 30 Mg Tab.Er.24h) 30 mg PO DAILY [facility] Stop: 08/11/25 08:59 Last Admin: 08/13/24 08:25 Dose: 30 mg Metoprolol Tartrate (Metoprolol Tartrate 100 Mg Tablet) 100 mg PO BID [facility] Stop: 08/11/25 08:59 Last Admin: 08/13/24 08:25 Dose: 100 mg Pantoprazole Sodium (Pantoprazole 40 Mg Tablet.Dr) 40 mg PO BID [facility] Stop: 08/11/25 08:59 Last Admin: 08/13/24 08:25 Dose: 40 mg Pregabalin (Pregabalin 75 Mg Capsule) 75 mg PO TID [facility] Stop: 02/07/25 08:59 Last Admin: 08/13/24 08:25 Dose: 75 mg Ropinirole HCl (Ropinirole 1 Mg Tablet) 1 mg PO TID [facility] Stop: 08/11/25 08:59 Last Admin: 08/13/24 08:25 Dose: 1 mg Tamsulosin HCl (Tamsulosin 0.4 Mg Cap.Er.24h) 0.4 mg PO BID [facility] Stop: 08/11/25 08:59 Last Admin: 08/13/24 08:25 Dose: 0.4 mg Tizanidine HCl (Tizanidine 4 Mg Tablet) 4 mg PO QHS [facility] Stop: 08/11/25 21:59 Last Admin: 08/12/24 [...] signed by Maurice Francis MD> 08/13/24 1106 [facility] Work Phone: reason for visit Narrative* CV Imaging (Routine) - Authorized Specialty Diagnoses / Procedures Referred By Contac t Referred To Contact Diagnoses Chest pain, unspecified type Procedures Nuclear Stress Test CHG MYOCARDIAL SPECT MULTIPLE STUDIES Pascale Arnold MD [address] [facility] 2, [address] [address] Phone: tel: fax: [address] [address] Phone: tel: Referral ID Status Reason Start Date Expiration Date V isits Requested Visits Authorized [id number] Authorized 10/11/2024 10/11/2025 5 1 [facility] Work Phone: Reason for visit Narrative* CV Imaging (Routine) - Authorized Specialty Diagnoses / Procedures Referred By Contac t Referred To Contact Diagnoses Chest pain, unspecified type Procedures Nuclear Stress Test CHG MYOCARDIAL SPECT MULTIPLE STUDIES Pascale Arnold MD [address] [facility] 2, [address] [address] Phone: tel: fax: [address] [address] Phone: tel: Referral ID Status Reason Start Date Expiration Date V isits Requested Visits Authorized [id number] Authorized 10/11/2024 10/11/2025 5 1 [facility] Work Phone: Chief Complaint MYRA PICKARD is [...] lev/PVR Mike Montes MD [address], [address] [address] Referral ID Status Reason Start Date Expiration Date V isits Requested Visits Authorized [id number] Pending Review 10/18/2023 10/17/2024 1 1 Specialty Diagnoses / Procedures Referred By Contac t Referred To Contact Radiology Diagnoses 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) Procedures CT angiogram abdominal aorta with runoff Mike Montes MD [address], [address] [address] Phone: Referral ID Status Reason Start Date Expiration Date V isits Requested Visits Authorized [id number] Pending Review 10/18/2023 10/17/2024 1 1 Referral ID Status Reason Start Date Expiration Date V isits Requested Visits Authorized [id number] Pending Review 10/18/2023 10/17/2024 1 1 Referral ID Status Reason Start Date Expiration Date V isits Requested Visits Authorized [id number] Pending Review 10/18/2023 10/17/2024 1 1 Specialty Diagnoses / Procedures Referred By Contac t Referred To Contact Cardiology Diagnoses Shortness of breath Procedures Transthoracic Echo Complete [place] ECHO TTHRC R-T 2D W/WOM-MODE COMPL SPEC&COLR D Bernard De La Cruz MD [facility] [facility] 2, [address] [address] Referral ID Status Reason Start Date Expiration Date Visits Requested Visits Authorized [id number] Authorized Perform Procedure 01/01/2024 12/31/2024 1 1 Specialty Diagnoses / Procedures Referred By Contac t Referred To Contact Diagnoses Encounter for pre-operative cardiovascular clearance Procedures ECG 12 Lead Raulito Inman MD [address] [facility] [address], [address] [address] Referral ID Status Reason Start Date Expiration Date V isits Requested Visits Authorized [id number] Authorized 10/24/2023 10/23/2024 1 1 Specialty Diagnoses / Procedures Referred By Contac t Referred To Contact Cardiology Diagnoses History of PTCA Procedures Follow Up In Cardiology Raulito Inman MD [address] [facility] 2, [address] [address] Referral ID Status Reason Start Date Expiration Date V isits Requested Visits Authorized [id number] Authorized 10/24/2023 10/23/2024 1 1 Reason CANCELLED consult and treat; previous patient of Dr. Sharpe last seen in 2020; persisting intractable headaches Diagnosis 1 Acute intractable he adache, unspecified headache type (R51.9) Referral Organization [facility] [place] Referring Provider First Name Teresa Referring Provider Last Name Jettjoe Referring Provider Specialty Family [facility] Referred Organization [facility] Referred Provider Lyssa Sharpe Referred Address [address] [place] [phone] Referred Provider Specialty Neurology Referral Priority Routine General Notes Verona Butron 023 10:19:08 AM >Received today. [facility] request us to fill out their form and attach to Referral and send it to them and they will call patient to schedule. Referral was sent P2P and fax insurance card since it would not let me attach to referral Verona Burton 07/28/2022 10:23:53 AM >Spoke with Marilynn at [facility] and patient has been scheduled and cancelled the appt for 07/26/22 Verona Burton 07/28/2022 10:27:39 AM >Telephone encounter was sent Reason 03/31/22 @ 2:45pm consult and treat Diagnosis 1 Type 2 diabetes bobby itus with circulatory disorder (E11.59) Referral Organization [facility] Family Irene Colunga Referring Provider First Name Teresa Referring Provider Last Name Rory Referring Provider Specialty Family Jono hunter Referred Organization [facility] Referred Provider Doris Barnes Referred Address [address],[place], [place],[address] Referred Provider Specialty Nurse Jono calderon Referral [...] Procedures ECG 12 Lead Raulito Inman MD [address] [place] [address], [address] [address] Referral ID Status Reason Start Date Expiration Date V isits Requested Visits Authorized [id number] Authorized 10/24/2023 10/23/2024 1 1 Specialty Diagnoses / Procedures Referred By Contac t Referred To Contact Cardiology Diagnoses Shortness of breath Procedures Transthoracic Echo Complete [place] ECHO TTHRC R-T 2D W/WOM-MODE COMPL SPEC&COLR D Bernard De La Cruz MD [address] [place] [address] 2, [address] [address] Referral ID Status Reason Start Date Expiration Date Visits Requested Visits Authorized [id number] Authorized Perform Procedure 01/01/2024 12/31/2024 1 1 Reason Comments New Patient Poor Circulation - R eferral from Dr. Soto - No appt available in [place] until 11/02/2023; patient is having right leg and foot pain at a 10 right now since surgery 2 weeks ago Specialty Diagnoses / Procedures Referred By Brett t Referred To Contact Vascular Surgery Diagnoses Poor circulation Paula Soto, DPM [address] [place] [address] [facility] [address] [place] [address] Referral ID Status Reason Start Date Expiration Date Visits Requested Visits Authorized [id number] Pending Review Specialty Services Required 10/13/2023 10/12/2024 1 1 Reason Comments Critical limb ischemia of ri ght lower extremity with gangre Follow up on testing completed in [facility] t Check insession Reason Comments Angioplasty RLE follow up - procedure at [facility]. 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 AT [facility] Incision w ith toshia, well approximated Care [...] Fagan MD Other Provider Active Start: [facility] 2024 End: August 13, 2024 Team Status: [...] Team Status: Active Member Role Status Dates Turman Bryant MD Attending Provider Active Sta rt: [...] Provider Active Sta rt: October 02, 2023 Turman Bryant MD Attending Provider Active Sta rt: [...] Team Status: Active Member Role Status Dates Truamn Bryant MD Attending Provider Active Sta rt: October 05, 2023 Team Status: Inactive Member Role Status Dates Paula Soto DPM MS Attending Provider Active Start: October 05, 2023 End: October 05, 2023 Team Status: Active Member Role Status Dates Truman Bryant MD Attending Provider Active Sta rt: October 06, 2023 Molding Engineer Relationship Specialty Start Date End Date [...] April 24, 2024 End: April 24, 2024 Molding Engineer Relationship Specialty Start Date End Date Teresa Lynch DO PCP - General 04/17/19 Namita Mercer LPN Care Motorcycle Deliverer 12/25/23 Molding Engineer Relationship Specialty Start Date End Date Teresa Lynch MD [facility] [place] [id number] PCP - External PCP 03/05/23 Team Status: [...] Start: M ay 2024 Maryann Pierre , [facility]- Other Provider Active Sta rt: October [...] November 05, 2024 End: November 05, 2024 Molding Engineer Relationship Specialty Start Date End Date Teresa Lynch DO [address] [place] [address] PCP - General Family Medicine 11/04/24 Molding Engineer Relationship Specialty Start Date End Date Teresa Lynch DO [address] [place] [address] PCP - General Family Medicine 11/04/24 Molding Engineer Relationship Specialty Start Date End Date Teresa Lynch DO [address] [place] [address] PCP - General Family Medicine 11/04/24 Goals [...] DATE CREATED AUTHOR AUTHOR'S ORGANIZ ATION 01/27/2023 [facility] DATE CREATED AUTHOR AUTHOR'S ORGANIZ ATION 02/16/2023 [facility] DATE CREATED AUTHOR AUTHOR'S ORGANIZ ATION 02/16/2023 [facility] DATE CREATED AUTHOR AUTHOR'S ORGANIZ ATION 10/22/2023 [facility] ical Center DATE CREATED AUTHOR AUTHOR'S ORGANIZ ATION 11/16/2023 [facility] DATE CREATED AUTHOR AUTHOR'S ORGANIZ ATION 11/25/2023 [facility] DATE CREATED AUTHOR AUTHOR'S ORGANIZ ATION 01/10/2024 [facility] DATE CREATED AUTHOR AUTHOR'S ORGANIZ ATION 02/13/2024 [facility] DATE CREATED AUTHOR AUTHOR'S ORGANIZ ATION 02/14/2024 [facility] DATE CREATED AUTHOR AUTHOR'S ORGANIZ ATION 02/15/2024 [facility] DATE CREATED AUTHOR AUTHOR'S ORGANIZ ATION 02/16/2024 [facility] DATE CREATED AUTHOR AUTHOR'S ORGANIZ ATION 02/17/2024 [facility] DATE CREATED AUTHOR AUTHOR'S ORGANIZ ATION 02/18/2024 [facility] DATE CREATED AUTHOR AUTHOR'S ORGANIZ ATION 02/19/2024 [facility] DATE CREATED AUTHOR AUTHOR'S ORGANIZ ATION 02/20/2024 [facility] DATE CREATED AUTHOR AUTHOR'S ORGANIZ ATION 02/21/2024 [facility] DATE CREATED AUTHOR AUTHOR'S ORGANIZ ATION 02/22/2024 [facility] DATE CREATED AUTHOR AUTHOR'S ORGANIZ ATION 02/23/2024 [facility] DATE CREATED AUTHOR AUTHOR'S ORGANIZ ATION 02/24/2024 [facility] DATE CREATED AUTHOR AUTHOR'S ORGANIZ ATION 03/14/2024 [facility] DATE CREATED AUTHOR AUTHOR'S ORGANIZ ATION 05/29/2024 [facility] DATE CREATED AUTHOR AUTHOR'S ORGANIZ ATION 11/08/[address] [facility] DATE CREATED AUTHOR AUTHOR'S ORGANIZ ATION 12/27/2024 [facility] DATE CREATED AUTHOR AUTHOR'S ORGANIZ ATION 02/04/2025 [facility] DATE CREATED AUTHOR AUTHOR'S ORGANIZ ATION 02/09/2025 [facility] FOR RECORDS PERTAINING TO PATIENTS WHO [...] BE BASED ON THE PRIMARY CLINICAL RECORDS. [employer] [facility]. provides no warranty or guarantee of the accuracy or completeness of information in this document.
[2025-02-15 07:11] LABS: Hematocrit 48.8 % (42.0-54.0); Hemoglobin 17.3 g/dL (14.0-18.0); Mean Corpuscular HGB Conc 35.5 g/dL (29.9-35.2); Mean Corpuscular Hemoglobin 30.5 pg (25.9-34.0); Mean Corpuscular Volume 85.9 fL (80.0-94.0); Platelet Count 142 10^3/uL (150-450); Red Blood Count 5.68 10^6/uL (4.70-6.10); White Blood Count 8.6 10^3/uL (4.0-11.0)
[2025-02-15 07:38] LABS: Alanine Aminotransferase 25 U/L (16-63); Albumin Globulin Ratio 0.8; Albumin Level 3.1 g/dL (3.4-5.0); Alkaline Phosphatase 153 U/L (46-116); Anion Gap 13.8; Aspartate Amino Transferase 20 U/L (15-37); Blood Urea Nitrogen 25.0 mg/dL (7.0-18.0); Calcium 8.6 mg/dL (8.5-10.1); Carbon Dioxide 28.1 mmol/L (21.0-32.0); Chloride 101 mmol/L (98-107); Estimated GFR (African America 45 (>=60 mL/min/1.73m^2); Estimated GFR (Non-African Ame 37 (>=60 mL/min/1.73m^2); Globulin 3.9 g/dL; Glucose 301 mg/dL (74-106); Potassium 3.9 mmol/L (3.5-5.1); Sodium 139 mmol/L (136-145); Total Protein 7.0 g/dL (6.4-8.2)
[2025-02-15 07:46] LABS: PTT Heparin Monitor 97.1 sec (43.5-61.5)
[2025-02-15] MEDS: FUROSEMIDE 40 MG TABLET PO (08:47)
[2025-02-15] MEDS: CALCIUM CARBONATE 600 MG/VITAMIN D3 400 IU TABLET 1 TAB PO (08:48)
[2025-02-15] MEDS: PANTOPRAZOLE SODIUM 40 MG TABLET.DR PO (08:48)
[2025-02-15] MEDS: PREGABALIN 100 MG CAPSULE 200 MG PO ×2 (08:48→21:31)
[2025-02-15] MEDS: METOPROLOL TARTRATE 25 MG TABLET 50 MG PO ×2 (08:48→17:03)
[2025-02-15] MEDS: ATORVASTATIN CALCIUM 20 MG TABLET 80 MG PO (08:48)
[2025-02-15] MEDS: CLOPIDOGREL BISULFATE 75 MG TABLET PO (08:48)
[2025-02-15] MEDS: INSULIN ASPART 300 UNIT/3 ML PEN SUBQ ×4 (08:48→21:32)
[2025-02-15] MEDS: TAMSULOSIN HCL 0.4 MG CAPSULE PO ×2 (08:48→21:31)
[2025-02-15] MEDS: ASPIRIN 81 MG TABLET.DR PO (08:48)
--- NOTE | 2025-02-15 09:40 | PM.HP ---
HPI H&P: HPI History of Present Illness Chief complaint: chest pain Narrative: Mr. Feldamn is a 59-year-old gentleman who came to the emergency room complaining of the chest pain. Patient reportedly experimented yesterday taking multiple marijuana laced Gummies. Patient became disoriented. He was unable to position himself on a wheelchair. He landed on the ground. He hit his right below-knee stump. In the emergency room, the patient reported having anterior chest pain. Reportedly patient was pleuritic in nature yesterday. This morning the patient reported that his pain is gone. No shortness of breath. No abdominal pain. No stump pain. No headaches. No confusion. Opioid HPI Opioid Management Most Recent Pain and Opioid Data: Last Pain Scale 9 02/14/25, 23:27 Last Pain Intensity 9 03/04/23, 10:36 Last Pain Assessment Today, 03:00 Last ED Pain Assessment 02/14/25, 21:23 Last MAR Pain Assessment 02/14/25, 23:27 Last ORT Total Score 0 Today, 02:01 Last ORT Risk Category Low Risk Today, 02:01 Ur Phencyclidine Scrn, (NEGATIVE) Negative 03/03/23, 17:24 PFSH PFSH Medical History Chest pain ?R07.9 - Chest pain, unspecified (ICD-10) Acute osteomyelitis of right foot ?M86.171 - Other acute osteomyelitis, right ankle and foot (ICD-10) Chronic ulcer of right foot ?L97.519 - Non-pressure chronic ulcer of other part of right foot with unspecified severity (ICD-10) Coronary artery disease ?I25.10 - Atherosclerotic heart disease of tejon coronary artery without angina pectoris (ICD-10) COPD (chronic obstructive pulmonary disease) ?J44.9 - Chronic obstructive pulmonary disease, unspecified (ICD-10) Hypertension ?I10 - Essential (primary) hypertension (ICD-10) Post-op bleeding Acute pain of right hip ?M25.551 - Pain in right hip (ICD-10) Foot osteomyelitis ?M86.9 - Osteomyelitis, unspecified (ICD-10) Ulcer of right foot with necrosis of bone ?L97.514 - Non-pressure chronic ulcer of other part of right foot with necrosis of bone (ICD-10) Hypocalcemia ?E83.51 - Hypocalcemia (ICD-10) Hypomagnesemia ?E83.42 - Hypomagnesemia (ICD-10) Sepsis ?A41.9 - Sepsis, unspecified organism (ICD-10) Wound of foot ?S91.309A - Unspecified open wound, unspecified foot, initial encounter (ICD-10) Abscess of right foot ?L02.611 - Cutaneous abscess of right foot (ICD-10) Anticoagulated ?Z79.01 - correction (current) use of anticoagulants (ICD-10) Diabetic infection of right foot ?E11.628 - Type 2 diabetes mellitus with other skin complications (ICD-10) ?L08.9 - Local infection of the skin and subcutaneous tissue, unspecified (ICD-10) Puncture wound of right foot ?S91.331A - Puncture wound without foreign body, right foot, initial encounter (ICD-10) Cellulitis of foot, right ?L03.115 - Cellulitis of right lower limb (ICD-10) Sepsis ?A41.9 - Sepsis, unspecified organism (ICD-10) CHF (congestive heart failure) ?I50.9 - Heart failure, unspecified (ICD-10) Migraine headache ?G43.909 - Migraine, unspecified, not intractable, without status migrainosus (ICD-10) Carpal tunnel syndrome ?G56.00 - Carpal tunnel syndrome, unspecified upper limb (ICD-10) Back pain ?M54.9 - Dorsalgia, unspecified (ICD-10) Arthritis ?M19.90 - Unspecified osteoarthritis, unspecified site (ICD-10) Restless leg ?G25.81 - Restless legs syndrome (ICD-10) GERD (gastroesophageal reflux disease) ?K21.9 - Gastro-esophageal reflux disease without esophagitis (ICD-10) High cholesterol ?E78.00 - Pure hypercholesterolemia, unspecified (ICD-10) Myocardial infarction ?I21.9 - Acute myocardial infarction, unspecified (ICD-10) Dementia ?F03.90 - Unspecified dementia, unspecified severity, without behavioral disturbance, psychotic disturbance, mood disturbance, and anxiety (ICD-10) CKD stage 4 due to type 2 diabetes mellitus ?E11.22 - Type 2 diabetes mellitus with diabetic chronic kidney disease (ICD-10) ?N18.4 - Chronic kidney disease, stage 4 (severe) (ICD-10) Hyperlipidemia ?E78.5 - Hyperlipidemia, unspecified (ICD-10) Polyp of prostate with urinary obstruction ?N40.1 - Benign prostatic hyperplasia with lower urinary tract symptoms (ICD-10) ?N13.8 - Other obstructive and reflux uropathy (ICD-10) Femoral artery stenosis ?I70.209 - Unspecified atherosclerosis of tejon arteries of extremities, unspecified extremity (ICD-10) Glaucoma ?H40.9 - Unspecified glaucoma (ICD-10) Carpal tunnel syndrome, bilateral ?G56.03 - Carpal tunnel syndrome, bilateral upper limbs (ICD-10) Gout ?M10.9 - Gout, unspecified (ICD-10) Chronic kidney disease ?N18.9 - Chronic kidney disease, unspecified (ICD-10) Weakness ?R53.1 - Weakness (ICD-10) Surgical History H/O foot surgery (08/10/23) ?Z98.890 - Other specified postprocedural states (ICD-10) S/P TURP (04/13/23) ?Z90.79 - Acquired absence of other genital organ(s) (ICD-10) H/O foot surgery (08/05/23) ?Z98.890 - Other specified postprocedural states (ICD-10) History of heart artery stent ?Z95.5 - Presence of coronary angioplasty implant and graft (ICD-10) History of spinal surgery ?Z98.890 - Other specified postprocedural states (ICD-10) History of colonoscopy ?Z98.890 - Other specified postprocedural states (ICD-10) History of carpal tunnel release ?Z98.890 - Other specified postprocedural states (ICD-10) History of cataract extraction ?Z98.49 - Cataract extraction status, unspecified eye (ICD-10) History of appendectomy ?Z90.49 - Acquired absence of other specified parts of digestive tract (ICD-10) History of heart artery stent ?Z95.5 - Presence of coronary angioplasty implant and graft (ICD-10) Family History Mother Family history of CHF (congestive heart failure) Family history of diabetes mellitus Family history of hypertension Grandfather Family history of CHF (congestive heart failure) Family history of diabetes mellitus Family history of hypertension Family history of myocardial infarction Grandmother Family history of hypertension Social History (Updated 02/15/25 @ 06:06 by Kimberley Engle RN) Within the past year, how often did you have a drink containing alcohol: 4 or more times a week Within the past year, how many standard drinks containing alcohol did you have on a typical day: 1 or 2 Within the past year, how often did you have six or more drinks on one occasion: never Total score: 0 Score interpretation: Questions 2 and 3 are 0. It can be assumed that the patient's drinking is below the recommended limits. However, please confirm the accuracy of the patient's alcohol intake over the last few months. Smoking status: Current every day smoker What tobacco products do you use: cigarettes Cigarettes per day: 20 Years smoked: 42 Smoking pack-years: 42.00 Nicotine containing products detail: Approx 1 pack QOD Second hand tobacco smoke exposure: No Non-prescribed substance use: denies use and cannabis (any form) Previous occupational history: DISABLED Known occupational exposures/hazards: No Highest level of school completed/degree received: high school graduate Are you now , , , , never or living with a partner: In a typical week, how many times do you talk on the telephone with family, friends, or neighbors: once per week How often do you get together with friends or relatives: once per week How often do you attend restoration or christianity services: never Do you belong to any clubs or organizations such as restoration groups unions, fraternal or athletic groups, or school groups: no Total score: 1 Score interpretation: A score of less than or equal to 1 indicates the most socially isolated. Little interest or pleasure in doing things: not at all Feeling down, depressed, or hopeless: not at all Feel stressed/tense/nervous/anxious/difficulty sleeping: not at all Due to disability, difficulty making decisions: No Do you think of yourself as: straight/heterosexual Gender Identity: male Meds Home Medications and Allergies Home Medications ?Medication ?Instructions ?Recorded ?Confirmed ?Type empagliflozin 10 mg tablet 10 mg PO DAILY 03/03/23 02/15/25 History (Jardiance) nitroglycerin 0.4 mg sublingual 0.4 mg sublingual Q5M PRN chest 03/03/23 12/15/24 History tablet pain omeprazole 40 mg capsule,delayed 40 mg PO DAILY 03/03/23 02/15/25 History release pregabalin 200 mg capsule 200 mg PO TID 03/03/23 02/15/25 History atorvastatin 80 mg tablet 80 mg PO DAILY 12/09/23 02/15/25 History clopidogrel 75 mg tablet 75 mg PO DAILY 12/09/23 02/15/25 History dulaglutide 0.75 mg/0.5 mL 0.75 mg subcut QWEEK 12/09/23 02/15/25 History subcutaneous pen injector (Trulicity) tamsulosin 0.4 mg capsule 0.4 mg PO BID 12/09/23 02/15/25 History amitriptyline 25 mg tablet 25 mg PO .qhs 12/10/23 02/15/25 History budesonide-formoterol HFA 160 2 inh inhalation BID 12/10/23 02/15/25 History mcg-4.5 mcg/actuation aerosol inhaler (Symbicort) furosemide 40 mg tablet (Lasix) 40 mg PO DAILY 12/10/23 02/15/25 History allopurinol 100 mg tablet 100 mg PO DAILY 12/15/24 02/15/25 History blood-glucose sensor (FreeStyle 12/15/24 12/15/24 History Jigar 2 Plus Sensor device) calcium 500 mg (as 1 tab PO DAILY 12/15/24 02/15/25 History carbonate)-vitamin D3 10 mcg (400 unit) tablet (Calcium 500 With D) clonazepam 0.5 mg tablet 0.5 mg PO QAM 12/15/24 02/15/25 History ferrous sulfate 325 mg (65 mg 325 mg PO BID 12/15/24 02/15/25 History iron) tablet hydroxyzine HCl 25 mg tablet 25 mg PO .QHS 12/15/24 02/15/25 History magnesium oxide 400 mg (241.3 mg 400 mg PO DAILY 12/15/24 02/15/25 History magnesium) tablet metoprolol tartrate 25 mg tablet 50 mg PO BID 12/15/24 02/15/25 History ropinirole 0.5 mg tablet 0.5 mg PO TID 12/15/24 02/15/25 History valsartan 80 1 tab PO .QD 12/15/24 02/15/25 History mg-hydrochlorothiazide 12.5 mg tablet aspirin 81 mg tablet 81 mg PO DAILY 02/15/25 02/15/25 History empagliflozin 10 mg tablet 10 mg PO DAILY 02/15/25 02/15/25 History (Jardiance) glimepiride 2 mg tablet 1 mg PO BID 02/15/25 02/15/25 History metformin 1,000 mg tablet 1,000 mg PO BID 02/15/25 02/15/25 History sitagliptin phosphate 100 mg 100 mg PO DAILY 02/15/25 02/15/25 History tablet (Januvia) Allergies Allergy/AdvReac Type Severity Reaction Status Date / Time Penicillins Allergy Severe Swelling Verified 02/14/25 20:59 of Lip/Tongue/Throat bee venom protein (honey bee) Allergy Swelling Verified 02/14/25 20:59 of Lip/Tongue/Throat latex Allergy Rash Verified 02/14/25 20:59 Exam Narrative Exam Narrative: [pt is awake and alert. oriented to place, time and person oriented to place and person, no distress. HEENT: Sammy Martinez conjunctiva and NL buccal mucosa Neck: Supple, no tenderness Endocrine: No Thyromegaly. Vascular: No JVD or carotid bruit. Lymphatic: No cervical lymphadenopathy. Chest: CTA no DTP. No tenderness. No crackles. No wheezing. Heart RRR, no extra sound or murmur. Abd: Soft, no tenderness, no rebound and no rigidity. Increase abd girth therefore clinically I could not exclude the possibility of intra abd mass or organomegaly. LE: No cyanosis or clubbing, no varices or edema. Right below-knee amputation. The stump looks normal. No erythema, contusion, bleed, bruising or tenderness. Neuro: A A O. Nl speech, comprehension and attention. Nl and symetrical motor and tone examination through out. []] Constitutional Vital Signs, click to edit/add: Last Vital Signs Temp 98.1 F 02/15/25 08:00 Pulse 90 02/15/25 08:00 Resp 18 02/15/25 08:00 BP 137/87 02/15/25 08:00 Pulse Ox 92 L 02/15/25 08:00 O2 Del Method Room Air 02/15/25 08:00 Results Labs Labs: Short CBC 02/14/25 02/15/25 Range/Units 21:00 07:05 WBC 8.2 8.6 (4.0-11.0) 10^3/uL Hgb 17.5 17.3 (14.0-18.0) g/dL Hct 50.3 48.8 (42.0-54.0) % Plt Count 132 L 142 L (150-450) 10^3/uL BMP 02/14/25 02/15/25 21:00 07:05 Sodium 139 139 Potassium 4.0 3.9 Chloride 101 101 Carbon Dioxide 25.8 28.1 BUN 23.0 H 25.0 H Creatinine 2.00 H 1.86 H Glucose 252 H 301 H Calcium 9.1 8.6 Liver Function 02/15/25 Range/Units 07:05 Total Bilirubin 0.5 (0.2-1.0) mg/dL AST 20 (15-37) U/L ALT 25 (16-63) U/L Alkaline Phosphatase 153 H (46-116) U/L Albumin 3.1 L (3.4-5.0) g/dL Assessment and Plan Assessment and Plan (1) D-dimer, elevated: (2) Chest pain, pleuritic: (3) Peripheral vascular disease: (4) Neuropathy: (5) Tobacco abuse: (6) Anemia: Qualifiers: Anemia type: due to chronic kidney disease Chronic kidney disease stage: stage 4 (severe) Qualified Code(s): N18.4 - Chronic kidney disease, stage 4 (severe); D63.1 - Anemia in chronic kidney disease (7) CKD stage 3b, GFR 30-44 ml/min: (8) DM2 (diabetes mellitus, type 2): Qualifiers: Diabetes mellitus detention insulin use: without detention use Diabetes mellitus complication status: with kidney complications Diabetes mellitus complication detail: with chronic kidney disease Chronic kidney disease stage: stage 4 (severe) Qualified Code(s): E11.22 - Type 2 diabetes mellitus with diabetic chronic kidney disease; N18.4 - Chronic kidney disease, stage 4 (severe) Plan Chest pain, anterior, reported to be pleuritic yesterday in the emergency room department. Currently patient is chest pain-free. Patient denies any shortness of breath. Saturation 90% on room air D-dimer is positive. CTA could not be completed due to CKD therefore patient will be getting V/Q scan Meanwhile continue anticoagulation until V/Q comes negative. No clinical evidence to suggest lower extremity DVT. No swelling, tenderness. Diabetes, poor control. Resume preadmission home medications. Start patient on sliding scale. Peripheral vascular disease. Previous stenting of the iliac arteries. No acute arterial compromise. Continue dual antiplatelet therapy CAD. No active chest pain at this time. Troponin is negative. EKG no ST elevation or depression. Continue dual antiplatelet therapy as well as a beta-lamont Tobacco addiction Counseling and education to quit smoking. I suspect the patient has COPD. CKD stage III borderline stage IV. At baseline at this time prohibiting to proceed with the CT of the chest potentially risking ROEL. Continue gentle diuresis to keep him in euvolemic state Hypertension, fair control. Chronic medical conditions not listed above, incidental findings seen on labs and imaging. These would need to be addressed. Could be addressed when time and condition are appropriate. Could be addressed in the outpatient setting by PCP collaboration with other needed outpatient providers.
[2025-02-15] MEDS: GLIMEPIRIDE 2 MG TABLET 1 MG PO ×2 (10:23→21:32)
[2025-02-15] MEDS: CLONAZEPAM 0.5 MG TABLET PO (10:24)
[2025-02-15] MEDS: ALLOPURINOL 100 MG TABLET PO (10:24)
[2025-02-15] MEDS: CANAGLIFLOZIN 100 MG TABLET PO (10:24)
[2025-02-15] MEDS: ROPINIROLE HCL 0.25 MG TABLET 0.5 MG PO ×2 (13:57→21:31)
[2025-02-15] MEDS: HYDROMORPHONE HCL 0.5 MG/0.5 ML SYRINGE 0.25 MG IVP (13:58)
--- NOTE | 2025-02-15 15:00 | ECG_ITS ---
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
[2025-02-15] MEDS: NITROGLYCERIN 0.4 MG BOTTLE SL (15:54)
--- NOTE | 2025-02-15 15:59 | PM.EN ---
Event Note Event Note: Pt came in with chest pain. This Am, pt was chest pain free. Pt was started on Levenix 1 mg kg q 24 hrs and ordered VQ scan r/o PE to be done tomorrow Am. CTA was not done due to CKD. Around 2:30-3 PM, pt started having chest pain, heaviness 9/10. heaviness did not resolve after Dilaudid. Pt was given Nitro in ED without relief. Repeat ECG does not show any ST elevation or depression to have high clinical suspicion of MA. Pt is not tachypenic and does not have significant hypoxia ( 95 % on 2 L ) to have high clinical suspicion of PE. Clinically, I need to exclude the possibility of Aortic dissection causing his chest pain although his BP is not significantly elevated. To reduce risk of contrast nephropathy, I would recommend to infuse 500 ml hr of NS then CTA chest r/o PE and A dissection followed by NS at 200 ML hr of one litter.
[2025-02-15] MEDS: 0.9 % SODIUM CHLORIDE 500 ML IV (16:00)
--- NOTE | 2025-02-15 17:00 | CT_ITS ---
[address] [address] Patient Name: MYRA FELIPE MRN: [id number] date: 1965 Sex: M Assigned Patient Location: [place] Current Patient Location: [place] Accession/Order Number: [id number] Exam Date: 02/15/2025 17:15 Report Date: 02/15/2025 17:49 At the request of: RUTH ANN BALDWIN MD Procedure: CT angio chest CTA Chest with PE protocol TECHNIQUE: Axial imaging with 2-D and 3-D reconstruction The CT exam was performed using one or more the following dose reduction techniques: Automated exposure control, adjustment of the MA and/or Kv according to patient size, or use of the iterative reconstruction technique. History: Shortness of breath today. Substernal chest pain COMPARISON: 10/12/2021 THYROID: Unremarkable TRACHEA AND BRONCHI: Patent ESOPHAGUS: Unremarkable. HEART: Within normal limits PERICARDIAL EFFUSION: None CORONARY ARTERY CALCIFICATION: Present MEDIASTINUM: No adenopathy. No pneumoperitoneum. No mediastinal hematoma. PULMONARY CHAPIS: No hilar mass or adenopathy is seen. Calcified hilar lymph nodes. THORACIC AORTA atherosclerosis PULMONARY EMBOLUS: None LUNG NODULE similar bilateral lung nodules. No new or enlarging lung nodules. LUNGS: Lungs are clear PLEURAL EFFUSION: None PNEUMOTHORAX: No pneumothorax seen. CHEST WALL: No abnormality AXILLA: Unremarkable BONY STRUCTURES Intact UPPER ABDOMEN: Images of the upper abdomen are noncontributory. CT/CT angio chest IMPRESSION: No acute pulmonary embolus. Stable small bilateral lung nodules Impression dictated by: Sudeep Lind M.D. 02/15/2025 5:49 PM Dictation Location: [email or web address] Electronically authenticated by: [id number] Y Date: 02/15/2025 17:49
[2025-02-15] MEDS: 0.9 % SODIUM CHLORIDE 1,000 ML 200 ML IV (17:04)
[2025-02-15] MEDS: HYDROMORPHONE HCL 0.5 MG/0.5 ML SYRINGE IVP (17:32)
[2025-02-16] VITALS: PULSE 61
[2025-02-16 02:00] VITALS: PULSE 68
[2025-02-16 04:00] VITALS: BP 114/67; PULSE 59; PULSE 71; TEMP 36.6; O2SAT 92
[2025-02-16 06:00] VITALS: PULSE 58
[2025-02-16] MEDS: ROPINIROLE HCL 0.25 MG TABLET 0.5 MG PO (06:18)
[2025-02-16 06:58] LABS: Anion Gap 15.6; Blood Urea Nitrogen 23.0 mg/dL (7.0-18.0); Calcium 8.8 mg/dL (8.5-10.1); Carbon Dioxide 25.5 mmol/L (21.0-32.0); Chloride 103 mmol/L (98-107); Estimated GFR (African America 48 (>=60 mL/min/1.73m^2); Estimated GFR (Non-African Ame 39 (>=60 mL/min/1.73m^2); Glucose 136 mg/dL (74-106); Potassium 4.1 mmol/L (3.5-5.1); Sodium 140 mmol/L (136-145)
[2025-02-16 07:44] VITALS: BP 143/84; PULSE 58; TEMP 36.3; O2SAT 92
[2025-02-16 07:59] VITALS: PULSE 57
--- NOTE | 2025-02-16 08:12 | P.DS_ITS ---
DS: Providers Provider Date of admission: 02/15/25 01:56 Primary care physician: Jenaro Valadez DO DS: Diagnosis Discharge Diagnosis (1) D-dimer, elevated: (2) Chest pain, pleuritic: (3) Peripheral vascular disease: (4) Neuropathy: (5) Tobacco abuse: (6) Anemia: Qualifiers: Anemia type: due to chronic kidney disease Chronic kidney disease stage: stage 4 (severe) Qualified Code(s): N18.4 - Chronic kidney disease, stage 4 (severe); D63.1 - Anemia in chronic kidney disease (7) CKD stage 3b, GFR 30-44 ml/min: (8) DM2 (diabetes mellitus, type 2): Qualifiers: Diabetes mellitus intermediate insulin use: without long wall shear operator use Diabetes mellitus complication status: with kidney complications Diabetes mellitus complication detail: with chronic kidney disease Chronic kidney disease stage: stage 4 (severe) Qualified Code(s): E11.22 - Type 2 diabetes mellitus with diab etic chronic kidney disease; N18.4 - Chronic kidney disease, stage 4 (severe) Plan As listed above, below and others that are not listed DS: Summary Hospital Course Hospital Course: Mr. Feldman is a 59-year-old gentleman who took few marijuana laced Gummies. He was brought to the emergency room after he subsequently lost his balance trying to sit in a wheelchair and fell to the ground. In the emergency room the patient started having chest pain prompting the decision to admit him under observation. Chest pain, anterior, reported to be pleuritic yesterday in the emergency room department. Patient was chest pain free yesterday morning and this morning. Patient denies any shortness of breath. Saturation 92% on room air D-dimer is positive. The plan was to proceed with a VQ scan. Unfortunately the patient started having worsening chest pain last evening. EKG did not show any ST ovation or depression. Follow-up troponin all came back negative despite the patient having renal failure making the possibility of acute NV very unlikely. His pain did not respond to nitroglycerin in the emergency room department. My suspicion was that patient either has PE or aortic dissection. VQ scan was canceled and CTA was ordered to rule out aortic dissection and PE. Patient was premedicated with normal saline infusion 500 mL bolus followed by 200 mL an hour for 1 L Patient had CTA which came back negative for dissection, PE or pneumonia or any other chest abnormalities other than pulmonary nodules. LFTs normal. Patient is chest pain-free today. 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 Patient is already on dual antiplatelet therapy, statin and beta-lamont Patient did describe this pain as burning at time. Could be reflux disease. Patient is on PPI. May need to be referred to GI as well. Pulmonary nodule seen on current CT. Similar size compared to a CAT scan that was completed in October 2021 as per radiologist. Patient is to follow-up with her PCP regarding this. I would assume that the nodules are benign if they have been stable and similar in size for the last 3 years Diabetes, poor control. Resume preadmission home medications. Start patient on sliding scale. Patient is to hold metformin for the next 48 hours Peripheral vascular disease. Previous stenting of the iliac arteries. No acute arterial compromise. Continue dual antiplatelet therapy CAD. No active chest pain at this time. Troponin is negative. EKG no ST elevation or depression. Continue dual antiplatelet therapy as well as a beta-lamont Tobacco addiction Counseling and education to quit smoking. I suspect the patient has COPD. CKD stage III borderline stage IV. At baseline at this time prohibiting to proceed with the CT of the chest potentially risking ROEL. Continue gentle diuresis to keep him in euvolemic state Hypertension, fair control. Chronic medical conditions not listed above, incidental findings seen on labs and imaging. These would need to be addressed. Could be addressed when time and condition are appropriate. Could be addressed in the outpatient setting by PCP collaboration with other needed outpatient providers. Patient has multiple complex medical issues as listed above and others that are not listed. All appear to be stable. I do not have any clear or strong clinical justification to extend inpatient hospitalization. Patient however will require close and frequent monitoring as well as additional work-up, investigation and therapeutic intervention that could take place from this point on post discharge. That is to prevent relapse, decompensation, rehospitalization and other medical implications. I instructed patient to ask her primary care doctor to obtain [facility] record entirely to address abnormalities seen on labs and imaging that I have and have not addressed during this hospitalization, follow-up on pending blood work, imaging and pathology is if available and to follow-up on needed medical care in the outpatient setting. Time Spent with Patient Time attestation: Total time spent providing and/or coordinating discharge services: Exam Narrative Exam Narrative: [pt is awake and alert. oriented to place, time and person HEENT: [place] conjunctiva and NL buccal mucosa Neck: Supple, no tenderness Endocrine: No Thyromegaly. Vascular: No JVD or carotid bruit. Lymphatic: No cervical lymphadenopathy. Chest: CTA no DTP. Heart RRR, no extra sound or murmur. Abd: Soft, no tenderness, no rebound and no rigidity. Increase abd girth therefore clinically I could not exclude the possibility of intra abd mass or organomegaly. LE: No cyanosis or clubbing, no varices or edema. Right below-knee amputation. No tenderness, bruising, ecchymosis or laceration involving the right leg. Neuro: A A O. Nl speech, comprehension and attention. Nl and symetrical motor and tone examination through out. []] Constitutional Vital Signs, click to edit/add: Last Vital Signs Temp 97.4 F L 02/16/25 07:44 Pulse 57 L 02/16/25 07:59 Resp 18 02/16/25 07:50 BP 143/84 H 02/16/25 07:44 Pulse Ox 92 L 02/16/25 07:44 O2 Del Method Room Air 02/16/25 07:44 O2 Flow Rate 2 02/15/25 12:00 DS: Data Data Completed and Pending Labs on day of discharge: Labs from last 24 hours 02/16/25 02/15/25 02/15/25 06:00 21:09 16:11 Sodium 140 Potassium 4.1 Chloride 103 Carbon Dioxide 25.5 Anion Gap 15.6 BUN 23.0 H Creatinine 1.78 H Est GFR ( Amer) 48 L Est GFR (Non-Af Amer) 39 L BUN/Creatinine Ratio 12.9 Glucose 136 H Calcium 8.8 Troponin I High Sens 6.3 POC Glucose 241 H 02/15/25 02/15/25 16:08 11:04 Sodium Potassium Chloride Carbon Dioxide Anion Gap BUN Creatinine Est GFR ( Amer) Est GFR (Non-Af Amer) BUN/Creatinine Ratio Glucose Calcium Troponin I High Sens POC Glucose 269 H 310 H Discharge Plan Discharge Disposition: Home, Self-Care Discharge Medications: Continued allopurinol 100 mg tablet 100 mg PO DAILY clonazepam 0.5 mg tablet 0.5 mg PO QAM magnesium oxide 400 mg (241.3 mg magnesium) tablet 400 mg PO DAILY hydroxyzine HCl 25 mg tablet 25 mg PO .QHS calcium carbonate-vitamin D3 [Calcium 500 With D] 500 mg-10 mcg (400 unit) tablet 1 tab PO DAILY ferrous sulfate 325 mg (65 mg iron) tablet 325 mg PO BID metoprolol tartrate 25 mg tablet 50 mg PO BID Rx Instructions: HOLD IF SPB <125 OR HR <70 ropinirole 0.5 mg tablet 0.5 mg PO TID valsartan-hydrochlorothiazide 80-12.5 mg tablet 1 tab PO .QD (DME) FreeStAppUpper - ASO Jigar 2 Plus Sensor Device See Rx Instructions .ROUTE Rx Instructions: As directed Jardiance 10 mg tablet 10 mg PO DAILY aspirin 81 mg tablet 81 mg PO DAILY glimepiride 2 mg tablet 1 mg PO BID Rx Instructions: Do not take if your blood sugar drops below 130 Jardiance 10 mg tablet 10 mg PO DAILY nitroglycerin 0.4 mg tablet, sublingual 0.4 mg sublingual Q5M PRN (Reason: chest pain) omeprazole 40 mg capsule,delayed release(DR/EC) 40 mg PO DAILY pregabalin 200 mg capsule 200 mg PO TID tamsulosin 0.4 mg capsule 0.4 mg PO BID atorvastatin 80 mg tablet 80 mg PO DAILY clopidogrel 75 mg tablet 75 mg PO DAILY Trulicity 0.75 mg/0.5 mL pen injector 0.75 mg subcut QWEEK Patient Comments: tuesdays amitriptyline 25 mg tablet 25 mg PO .qhs furosemide [Lasix] 40 mg tablet 40 mg PO DAILY budesonide-formoterol [Symbicort] 160-4.5 mcg/actuation HFA aerosol inhaler 2 inh inhalation BID Changed Januvia 100 mg tablet 50 mg PO DAILY Qty: 0 0RF Held metformin 1,000 mg tablet 1,000 mg PO BID Hold Instructions: Resume on 02/19/25. Hold until 02/09 then take half a tablet twice a day Print Language: [place]i Activity Restrictions/Additional Instructions: I may not have addressed or treated all of your medical illnesses or the abnormal blood work or imaging studies during this hospitalization. Please ask your primary care provider to obtain [facility] records entirely to follow up on all of the abnormal physical, laboratory, and imaging findings that I have not addressed. Please return back to the emergency room or seek medical attention if your symptoms worsen or return. Check your blood sugar 3 times a day before meals. Document these numbers on a blood glucose log and bring them with you to your follow-up appointment with your primary care doctor. Communicate with your primary care doctor or art specialist if your blood sugar is under 100 or above 300 on 2 consecutive checks. Communicate with your primary care doctor or art specialist if you have any questions about your diabetes medications. Signs of a low blood sugar include sweating, racing heart, dizziness and/or weakness. Check your blood sugar if you have any of the symptoms. Please follow-up with PCP Discharging you from [facility] does not mean that your medical care ends here and now. You may still need additional monitoring, work up, investigation, and treatment plan to be handled from this point on by out patient providers including your primary care provider and specialists. For any medication question, please contact your retail pharmacist or your primary care provider. Thank you. Forms: Portal Instructions Referrals: Jenaro Valadez DO [Primary Care Provider] BERNARD DE LA CRUZ [Physician, Family Practice]
[2025-02-16] MEDS: ATORVASTATIN CALCIUM 20 MG TABLET 80 MG PO (08:30)
[2025-02-16] MEDS: FUROSEMIDE 40 MG TABLET PO (08:31)
[2025-02-16] MEDS: CLONAZEPAM 0.5 MG TABLET PO (08:31)
[2025-02-16] MEDS: ALLOPURINOL 100 MG TABLET PO (08:31)
[2025-02-16] MEDS: CANAGLIFLOZIN 100 MG TABLET PO (08:31)
[2025-02-16] MEDS: METOPROLOL TARTRATE 25 MG TABLET 50 MG PO (08:31)
[2025-02-16] MEDS: PANTOPRAZOLE SODIUM 40 MG TABLET.DR PO (08:31)
[2025-02-16] MEDS: TAMSULOSIN HCL 0.4 MG CAPSULE PO (08:31)
[2025-02-16] MEDS: CLOPIDOGREL BISULFATE 75 MG TABLET PO (08:31)
[2025-02-16] MEDS: GLIMEPIRIDE 2 MG TABLET 1 MG PO (08:31)
[2025-02-16] MEDS: ASPIRIN 81 MG TABLET.DR PO (08:31)
[2025-02-16] MEDS: CALCIUM CARBONATE 600 MG/VITAMIN D3 400 IU TABLET 1 TAB PO (08:31)
[2025-02-16] MEDS: PREGABALIN 100 MG CAPSULE 200 MG PO (08:31)
[2025-02-16] MEDS: MAGNESIUM OXIDE 400 MG TABLET PO (08:31)
--- NOTE | 2025-02-17 10:39 | PC.NURSE ---
Mon. 03/12 @ 3:50pm at [facility] [phone]
--- NOTE | 2025-02-17 13:42 | CM.DCFOLLOWU ---
Person spoke with:patient's How are you feeling? tired, but not too bad How is your pain? no pain Did you understand your discharge instructions? yes Do you have any questions about your discharge instructions? no Were you given any prescriptions at discharge?no Were you able to get your prescriptions filled?N/A Do you understand how to take your medications as ordered?yes Do you have any questions about your follow up appointment and do you plan to keep your follow up appointment? no questions. Pt's does have heart doctor scheduled for 03/12, SW confirmed. stated she will call PCP to schedule follow up. Is there anything else that you would like to discuss? no Questions/Comments/Concerns/Other:none
== END 2025-02-16 08:52 | disposition home or self-care (01) ==
LOC: ER 02-15 00:15 → MS 02-15 01:59
PROVIDERS: Admitting Provider Internal Medicine; Emergency Provider Internal Medicine; PCP Family Medicine; Visit Provider Internal Medicine
DX: I25.10 Atherosclerotic heart disease of native coronary artery without angina pectoris (principal); R07.81 Pleurodynia; E11.22 Type 2 diabetes mellitus with diabetic chronic kidney disease; Z79.84 Long term (current) use of oral hypoglycemic drugs; Z79.85 Long-term (current) use of injectable non-insulin antidiabetic drugs; F17.210 Nicotine dependence, cigarettes, uncomplicated; Z89.511 Acquired absence of right leg below knee; R79.89 Other specified abnormal findings of blood chemistry; R91.1 Solitary pulmonary nodule; E11.51 Type 2 diabetes mellitus with diabetic peripheral angiopathy without gangrene; D63.1 Anemia in chronic kidney disease; R07.9 Chest pain, unspecified; N18.4 Chronic kidney disease, stage 4 (severe); Z79.899 Other long term (current) drug therapy; E11.65 Type 2 diabetes mellitus with hyperglycemia
CPT/HCPCS: 36415; 70450; 71045; 71275; 80048; 80053; 82948; 84484; 85025; 85027; 85378; 85730; 93005; 96365; 96366; 96375; 96376; 99285; 99406; G0378; J1171; J1644; J3010; Q9966

== ENCOUNTER 2025-03-13 18:22 | Emergency (ER) | payer OTHER, SELFPAY ==
[2025-03-13 18:28] VITALS: BP 142/87; PULSE 71; TEMP 36.8; O2SAT 100; BMI 29.8
--- OUTSIDE RECORDS SUMMARY | 2025-03-13 18:34 | XMS_ITS | CCD ---
Author Organization [facility] Care Team Providers Care E/M Engineer Name Role Phone Teresa Lynch Unavailable Unavailable Unavailable Teresa Lynch Unavailable Amina Fagan Unavailable Verona Whaley Unavailable Doris Barnes Unavailable DO Teresa Lynch Primary Care Provider JERARDO Mclaughlin Attending Provider [phone] DO Teresa Lynch Attending Provider [phone] PETERSA ., DUARTE Attending Unavailable ELAINE Hernandez DUARTE Admitting Unavailable DR LYSSA PERDOMO Consulting Unavailable DR TERESA LYNCH Primary Care Unavailable DUARTE MÁRQUEZ Consulting Unavailable TERESA LYNCH Primary Care Physician [phone] Dr. Teresa Lynch Primary Care UnavailDolores Vaugnh Attending Unavailable Dolores Pickard Attending Unavailable Dolores Pickard Referring Unavailable Dr. Teresa Lynch Primary Care UnavailDolores Vaughn Attending Unavailable Dolores Pickard Referring Unavailable Dr. Teresa Lynch Primary Care Unavailmaría Inman II, Dr. Raulito Orona Referring Unavailable Rory, Dr. Teresa Orona Primary Care Unavailmaría Inman II, Dr. Raulito Orona Attending Unavailable DO Teresa Lynch Primary Care Provider MD Abdullahi Wilson Emergency Provider [phone] DO Teresa Lynch Primary Care Provider MD Abdullahi Wilson Emergency Provider JERARDO Mclaughlin Attending Provider JERARDO Mclaughlin Referring Provider LINDSEY Soto Attending Provider [phone] DO Teresa Lynch Primary Care Provider Teresa Lynch DO Primary Care Provider SIMON MOHAMED F Attending Unavailable PAULA SOTO Referring Unavailable SIMONMIKE F Admitting Unavailable SIMONMIKE Attending Unavailable ONLY), IP W[facility] C[facility] SERVICES (INPATIENT Consult ing Unavailable ROSIE AQUINO Referring Unavailable MAAME RUCKER Referring Unavailable ROSIE AQUINO Referring Unavailable DO Teresa Lynch Primary Care Provider Mike Montes FMary Admitting Unavailable SimonMike pennington FMary Attending Unavailable Mike Montes Referring Unavailable MD Elan Antonio Attending Unavaila ble Mike Montes Consulting Unavailable SimonMike pennington Consulting Unavailable Mike Montes Consulting Unavailable MD Mike Montes Admitting Unavailable MD Mike Montes Consulting Unavailable MD Mike Montes Attending Unavailable MD Mike Montes Referring Unavailable SimonMike pennington Consulting Unavailable SimonMike pennington FMary Consulting Unavailable SimonMike pennington FMary Admitting Unavailable SimonMike FMary Consulting Unavailable SimonMike FMary Attending Unavailable SimonMike pennington FMary Referring Unavailable ROWEYeyo Attending Unavailable [...] Attending Unavailable ROWE, Yeyo R Attending Unavailable Yeyo ROWE Attending Unavailable Raulito Gilliland Attending Unavailable Simon, MD Mike Weathers Referring Unavailable Simon, MD Mike Rodriguez. Admitting Unavailable Simon, MD Mike Weathers Attending Unavailable Simon, MD Mike Weathers Referring Unavailable Simon, MD Mike Weathers Admitting Unavailable Simon, MD Mike Weathers Attending Unavailable Yeyo ROEW Attending Unavailable Simon, MD [place] FMary Admitting Unavailable Simon, MD [place] FMary Attending Unavailable Simon, MD [place] FMary Referring Unavailable Simon, MD [place] FMary Admitting Unavailable Simon, MD [place] FMary Attending Unavailable Simon, MD [place] FMary Referring Unavailable Simon, Merlynamed F. Admitting Unavailable Simon, Merlynamed F. Consulting Unavailable Simon, Merlynamed F. Referring Unavailable Raulito Gilliland Attending Unavailable Simon, Merlynamed FMary Consulting Unavailable Simon, Merlynamed FMary Consulting Unavailable LINDSEY Soto Attending Provider MD Kait Dan Emergency Provider [phone] [facility] Primary Care Provider MD João Powell Admit Provider MD João Powell Attending Provider [phone] MD Kait Dan Emergency Provider [facility] Primary Care Provider MD João Powell Admit Provider MD João Powell Attending Provider MD Lyssa Sharpe Other Provider MD Mike Burleson Other Provider [phone] LINDSEY Soto Attending Provider MD Kait Dan Emergency Provider [facility] Primary Care Provider MD João Powell Admit Provider MD João Powell Attending Provider MD Lyssa Sharpe Other Provider MD Mike Burleson Other Provider DO Scottie [facility] Emergency Provider DO Luther Dozier Other Provider MD Job James Other Provider MD Remberto Ervin Attending Provider [phone] DO Scottie Bonilla Emergency Provider DO Luther Dozier Other Provider MD Job James Other Provider MD Remberto Ervin Attending Provider Kait Dan MD Emergency Provider Teresa Lynch DO Primary Care Provider João Powell MD Admit Provider João Powell MD Attending Provider [phone] Lyssa Sharpe MD Other Provider Mike Burleson MD Other Provider Scottie BRICENO, [facility] Emergency Provider Luther Dozier DO Other Provider Jacob HERRERA, Job Other Provider Remberto Ervin MD Attending Provider Mike Burleson MD Attending Provider Marybel Sanchez Unavailable Unavailable Teresa Lynch DO Primary Care Provider [phone] Namita Mercer LPN Unavailable Unava ilable Teresa Lynch MD Unavailable Yeyo ROWE Attending Unavailable Yeyo ROWE Admitting Unavailable Yeyo ROWE Attending Unavailable Elan Antonio Attending Unavailable Unavailable Primary Care Provider Unavailabl e Teresa Lynch DO Primary Care Provider Negro Hu MD Attending Provider [phone] Teersa Lynch DO Primary Care Provider Fritz HERRERA, Negro Attending Provider [phone] Francisco Duncan MD Emergency Provider [phone] Sina HERRERA, Marge Admit Provider Sina HERRERA, Marge Attending Provider [phone] Maximiliano HERRERA, Kevon Baum Attending Provider Gracia HERRERA, Amina Other Provider Angelica KURTZ, Jez Martin Emergency Provider [phone] Abdullahi Canchola DO Admit Provider Abdullahi Canchola DO Attending Provider [phone] Elle Monique RN Other Provider Unavailable Danyell Schmidt DO Other Provider Yaniv HERRERA, Pascale Other Provider Henny HERRERA, Raulito Orona Other Provider Lori HERRERA, Bernard Other Provider Connie HERRERA, Cash Other Provider Dolores Pickard APRN Other Provider Jeanie Conde MD Other Provider Simon HERRERA, Andrew Elise Other Provider Jabari HERRERA, Shaheed Other Provider Gabby [facility], Maryann Hopkins Other Provider Teresa [...] Unavailable CondeJeanie pennington Consulting Unavailable Simon, Andrew Garlandeb Consulting Unavailab Shaheed Quinonez Consulting Unavailable Maryann Pierre Consulting Unavailable Rory, Teresa Primary Care Unavailable Marge Andino Admitting Unavailable Amina Fagan Consulting Unavailable Kevon Viera Attending Unavailable Rory, Teresa Primary Care Unavailable Andre, Mohamad Admitting Unavailable AndreElaine hopkinsd Attending Unavailable Lyssa Sharpe Consulting Unavailable Mike Burleson Consulting Unavailable Andre, Mohamad Admitting Unavailable Luther Dozier Consulting Unavailable Rory, Teresa Primary Care Unavailable Remberto Ervin Attending Unavailable Job James Consulting Unavailable Mike Burleson Consulting Unavailable Paula Soto Attending Unavailable Paula Soto Admitting Unavailable Teresa Lynch Primary Care Unavailable Negro Hu Attending Unavailable Negro Hu Admitting Unavailable Teresa Lynch Attending Unavailable Rory, Teresa Admitting Unavailable Rory, Teresa Primary Care Unavailable Amina Fagan Consulting Unavailable Maurice Francis Consulting Unavailable Teresa Lynch DO Primary Care Provider [phone] Francisco Duncan MD Emergency Provider [phone] Marge Andino MD Admit Provider [phone] Kevon Viera MD Attending Provider Amina Fagan MD Other Provider Jez Dominguez PA-C Emergency Provider [phone] Abdullahi Canchola DO Admit Provider Abdullahi Canchola DO Attending Provider Teresa Lynch DO Attending Provider Maurice Francis MD Other Provider BERNARD DE LA CRUZ Attending Unavailable TERESA LYNCH Primary Care Unavailable Unavailable Primary Care Provider Unavailabl e Teresa Lynch DO Primary Care Provider [phone] PASCALE ARNOLD Referring Unavailable TERESA LYNCH Primary Care Unavailable PASCALE ARNOLD Referring Unavailable TERESA LYNCH Primary Care Unavailable MIKE MONTES Attending Unavailable MARYBEL VANG Attending Unavailable Yeyo ROWE Attending Unavailable MARYBEL VANG Attending Unavailable Yeyo ROWE Attending Unavailable Allergies Allergy Classification Reported Allergen(s) Allergy Type Date of Onset Reaction(s) Facility (20 sources) natural latex rubber; Translations: [LATEX] Allergy to substance (finding) 03-27-20 23 Itching (finding), Eruption of skin (disorder) [facility] (20 sources) Penicillins; Translations: [Penicillins] Allergy to drug (finding) 11-05-19 14 Anaphylactoid reaction (disorder) [facility] (20 sources) Acetaminophen / oxyCODONE Drug Allergy 03-14-20 17 vomiting [facility] Other (20 sources) tamsulosin; Translations: [TAMSULOSIN] Drug Allergy 07-14-19 21 [facility] (20 sources) PENICIILIN Propensity to adverse reactions [employer] [facility] [employer] Other (20 sources) Acetaminophen; Translations: [ACETAMINOPHEN] Drug Allergy 07-14-19 21 [facility] (20 sources) oxyCODONE; Translations: [Oxycodone] Drug Allergy 02-08-20 17 [facility] (1 source) Penicillins Drug allergy (disorder) 09-23-[address] [facility] (20 sources) Penicillin G; Translations: [penicillin G benzathine] Drug Allergy [facility] (12 sources) Penicillin; Translations: [Penicillin] Drug Allergy anaphylaxis, Anaphylactoid reaction (disorder) [facility] (20 sources) Latex Allergy to substance 03-27-20 23 Unknown, Dermatitis, Itching, Rash [facility] (20 sources) Penicillins Drug Allergy 11-05-19 14 Anaphylaxis, [facility] (17 sources) Isosorbide; Translations: [ISOSORBIDE MONONITRATE] Drug Allergy 08-05-19 15 Other (See Comments) [facility] (2 sources) Acetaminophen / oxyCODONE; Translations: [OXYCODONE-ACETA MINOPHEN] Drug Allergy 03-14-20 17 [facility] (7 sources) Isosorbide Dinitrate Drug Allergy 08-05-19 15 Other, Other (See Comments) [facility] (1 source) Latex Propensity to adverse reactions 03-27-20 23 Dermatitis, Itching, Rash, Unknown [facility] (1 source) Penicillins Drug Intolerance 11-05-19 14 Anaphylaxis, Hives [facility] (8 sources) Propoxyphene; Translations: [PROPOXYPHENE] Drug Allergy 03-14-20 17 [facility] (1 source) Latex Drug allergy (disorder) 11-06-19 25 [facility] (1 source) Penicillins Drug allergy (disorder) 11-06-19 25 [facility] (1 source) tamsulosin Drug Allergy 07-31-19 24 [facility] (7 sources) Penicillins Propensity to adverse reactions to drug 11-05-19 14 Anaphylaxis, Hives [facility] (1 source) Isosorbide Dinitrate; Translations: [ISOSORBIDE DINITRATE] Drug Allergy 08-05-19 15 [facility] Medications [...] 1:00am July 14, 2020 12:39pm Start: 10-10-2014 Lee 325 mg-5 mg oral tablet 1 tab(s), Oral, q4hr for pain, 12 tab(s), Refill(s) 0 Start Date: 10/10/14 Status: Ordered [id number] 200 actuat albuterol 0.09 mg/actuat metered dose [...] 26-Oct-2021 DO Active allopurinol 100 mg oral tablet (1 source) Xanthine Oxidase Inhibitor Start: 11-05-2024 amitriptyline hydrochloride 25 mg oral tablet (20 sources) Tricyclic Antidepressant Start: 07-12-2023 End: 08-30-2024 take 1 tablet by mouth once daily [...] End: 11-05-2024 take 1 tablet by mouth in the [...] Date: 10/31/13 Status: Ordered Flash Glucose Scanning [place] (Freestyle Jigar 2 [place]) misc (12 sources) Start: 12-28-2023 Flash Glucose Scanning [place] (Freestyle Jigar 2 [place]) misc Active 0 .Route December 27, 2023 11:00pm As directed Start: 12-28-2023 Flash Glucose Scanning [place] (Freestyle Jigar 2 [place]) misc Active 0 .Route December 28, 2023 12:00am As directed Start: 12-28-2023 Flash Glucose Scanning [place] (Freestyle Jigar 2 [place]) misc Active 0 .ROUTE December 28, 2023 [...] hr tablet Indications: Coronary artery disease involving [place] coronary artery of [place] heart without angina pectoris Take 1 tablet [...] Tartrate Discontinued 12.5 MG PO Twice daily March [...] 01-02-2018 End: 06-25-2024 take 2 tablets by [facility] twice daily before mealtime omeprazole OTC (PriLOSEC OTC) 20 mg EC tablet Take 2 tablets (40 mg) by mouth 2 times a day before meals. Do not crush, chew, or split. Active ONETOUCH ULTRA2 METER misc (20 sources) Start: 08-17-2023 ONETOUCH ULTRA 2 METER [...] Capsule Discontinued 50 MG PO Twice daily March 13, 2024 12:00am April 05, 2024 1:35pm Start: 01-24-2011 End: 08-30-2024 pregabalin (LYRICA) 200 mg c apsule Take 1 capsule (200 mg total) by mouth in the morning and 1 capsule (200 mg total) at noon and 1 capsule (200 mg total) before bedtime. 09/28/2023 Active ProAir HFA 108 (90 Base) [...] days. 60 tablet 11/08/2023 12/08/2023 Active sennosides, longterm 8.6 mg oral tablet (3 sources) Start: [...] BID, # 180 cap(s), Refills(s) 3, Pharmacy: [facility]/pharmacy #[id number], 182, cm, 09/27/24 10:46:00 EDT, [...] Start: 06-26-2023 take 1 capsule by mo [facility] once daily tamsulosin (FLOMAX) 0.4 mg capsule Take 1 capsule (0.4 mg total) by mouth nightly. 06/26/2023 Active Start: 02-14-2023 End: 03-06-2024 take 1 capsule by mouth at bedtime tamsulosin (FLOMAX) 0.4 mg capsule Take 1 capsule (0.4 mg total) by mouth in the morning and at bedtime. 06/26/2023 Active take 1 capsule by [facility] once daily Tamsulosin HCl - 0.4 [...] take 1 capsule by in halation once in the morning tiotropium (SPIRIVA WITH HANDIHALER) 18 mcg per inhalation capsule Place 1 capsule (18 mcg total) into inhaler and inhale in the morning. 11/23/2022 Active Start: 11-23-2022 take 1 capsule by [...] Refills: 0 Ordered: 26-Oct-2021 DO Active Tiotropium [place] (Spiriva With Handihaler) 18 mcg capsule, w/inhalation device (20 sources) Start: 03-03-2024 take 1 capsule by inhalation once daily Tiotropium [place] (Spiriva With Handihaler) 18 mcg capsule, w/inhalation device Active 1 CAP INHALATION Daily March 02, 2024 11:00pm puncture 1 cap using device; one dose = 2 inhalations Start: 03-03-2024 take 1 capsule by in halation once daily Tiotropium [place] (Spiriva With Handihaler) 18 mcg capsule, w/inhalation device Active 1 CAP INHALATION Daily March 03, 2024 12:00am puncture 1 cap using device; one dose = 2 inhalations Start: 07-12-2023 End: 03-03-2024 take 1 capsule by inhalation once daily Tiotropium [place] (Spiriva With Handihaler) 18 mcg capsule, w/inhalation device Discontinued 1 CAP INHALATION Daily July 12, 2023 12:00am March 03, 2024 1:29pm puncture 1 cap using device; one dose = 2 inhalations Start: 07-12-2023 End: 03-03-2024 take 1 capsule by inhalation once daily Tiotropium [place] (Spiriva With Handihaler) 18 mcg capsule, w/inhalation device Discontinued 1 CAP INHALATION Daily July 12, 2023 1:00am March 03, 2024 2:29pm puncture 1 cap using device; one dose = 2 inhalations Start: 07-12-2023 take 1 capsule by in halation once daily Tiotropium [place] (Spiriva With Handihaler) 18 mcg capsule, w/inhalation device Active 1 CAP INHALATION Daily July 12, 2023 1:00am puncture 1 cap using device; one dose = 2 inhalations Start: 07-12-2023 take 1 capsule by in halation once daily Tiotropium [place] (Spiriva With Handihaler) 18 mcg capsule, w/inhalation device Active 1 CAP INHALATION Daily July 12, 2023 12:00am puncture 1 cap using device; one dose = 2 inhalations tiZANidine 4 mg oral tablet (20 sources) Central alpha-2 Adrenergic Agonist Start: 08-11-2024 Start: 07-12-2023 End: 03-03-2024 Start: 11-23-2022 End: 03-13-2024 Start: 11-23-2022 take 1 capsule by mo uth three times daily as needed for muscle spasms tiZANidine (ZANAFLEX) 4 mg capsule Take 1 capsule (4 mg total) by mouth 3 (three) times a day as needed for muscle spasms. 11/23/2022 Active Start: 07-04-2022 [facility] tiZANidine HCl 4 MG 1 tablet as needed Orally Twice a day Jun, Active take 2 tablets by mo [facility] at bedtime tiZANidine HCl - 4 MG [...] day(s), # 12 tab(s), Refills(s) 0, Pharmacy: [facility]/pharmacy #[id number], 182, cm, 08/02/24 9:08:00 EST, [...] End: 03-08-2024 Blood-Glucose Meter,Continuous (Freestyle Jigar 3 [place]) misc (10 sources) Start: 12-25-2023 End: 12-28-2023 Blood-Glucose Meter,Continuous (Freestyle Jigar 3 [place]) misc Discontinued 0 .Route 1 December 24, 2023 11:00pm December 28, 2023 10:03am As directed Start: 12-25-2023 End: 12-28-2023 Blood-Glucose Meter,Continuo us (Freestyle Jigar 3 [place]) misc Discontinued 0 .Route December 25, 2023 [...] 12:00am December 28, 2023 11:03am As directed Blood-Glucose,Health Information Technician,Cont (Freestyle Jigar 3 [place]) misc (2 sources) Start: 12-25-2023 End: 12-28-2023 Blood-Glucose,Health Information Technician,Cont (Freestyle Jigar 3 [place]) misc Discontinued 0 .Route December 25, 2023 [...] 9:16am Start: 08-12-2024 take 2 tablets by ny ut once at mealtime Calcium Carbonate-Vitamin D3 (Oyster [...] 08-23-2024 Start: 01-30-2023 take 1 capsule by [facility] once daily doxycycline hyclate 100 mg Cap 100 mg = 1 cap(s), Oral, Daily, Take 1 pill the day before the procedure and 1 pill after the procedure, # 2 cap(s), Refills(s) 0, Pharmacy: [facility]/pharmacy #[id number], 182, cm, 01/30/23 10:24:00 EDT, [...] Apr, Active take 1 tablet by kalie once daily ferrous sulfate, 325 mg ferrous [...] End: 03-13-2024 Start: 03-03-2024 End: 03-13-2024 Ipratropium [place] (Atroven t Hfa) 17 mcg/actuation HFA aerosol [...] 03-08-2024 Start: 02-21-2024 take 2 tablets by [facility] every six hours as needed for [...] tablet 11/14/2023 11/21/2023 Active polyethylene glycol 3350 44501 mg powder for oral solution (20 sources) [...] mg Start: 07-18-2022 Toradol 30 mg/ ml 13 Feb, 2023 60 mg Start: 07-13-2022 Toradol 30 mg/ [...] syndrome; Translations: [Unspecified kidney failure] Chronic Acute cerebrovascular disease (1 source) Acute cerebrovascular disease Onset: 03-08-2024 Acute myocardial infarction (20 sources) Myocardial infarction; [...] of vessel, [place] or graft] Onset: 11-05-2013 Resolved: 02-15-2022 Chronic [...] hypertension] Onset: 11-05-2013 Resolved: 01-01-2024 04-02-2018 Chronic Gangrene (20 sources) 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; Translations: [Atherosclerosis of [place] arteries of extremities with gangrene, right leg] Onset: 10-18-2023 Resolved: 02-28-2024 Chronic Glaucoma (1 source) Glaucoma 01-28-2025 Chronic Gout and other crystal arthropathies (20 sources) Gout; Translations: [Gout, unspecified] Onset: 02-15-2022 Resolved: 02-15-2022 Chronic Headache; including migraine (8 sources) Migraine; Translations: [Migraine, unspecified, not intractable, without status migrainosus] Onset: 06-14-2023 12-17-2023 Chronic Hyperplasia of prostate (20 sources) Benign [...] sources) Orchitis; Translations: [Orchitis] Onset: 11-23-2022 Episodic Nutritional deficiencies (20 sources) Vitamin D [...] sources) Long-term current use of insulin; 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 by Dr. Simon Hernández Vascular Other bone disease and musculoskeletal deformities (9 sources) Acquired absence of right leg below [...] and respiratory systems] Onset: 10-18-2023 Episodic Other circulatory disease (3 sources) Critical lower limb ischemia Onset: 10-18-2023 01-28-2025 Episodic Comment on above: Outside Source Comme nt: Last Assessment & Plan: Right below-knee amputation. Will do it here at [facility]. Other connective tissue disease (20 sources) Pain [...] lower limbs] Chronic Other nervous system disorders (8 sources) Carpal tunnel syndrome of right wrist; Translations: [Carpal tunnel syndrome, right upper limb] Onset: 10-02-2020 12-17-2023 Chronic Other nervous system disorders (8 sources) Polyneuropathy; Translations: [Polyneuropathy, unspecified] Onset: 10-27-2020 [...] source) Pneumonia 01-28-2025 Episodic Residual codes; unclassified (19 sources) Sleep apnea; Translations: [Sleep apnea, unspecified] [...] states] Onset: 11-07-2023 Episodic Residual codes; unclassified (12 sources) Noncompliance [...] 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 ([facility]) [I70.261] Onset: 11-07-2023 Unclassified (1 source) New Patient Onset: 10-18-2023 Unclassified (4 sources) Patient encounter status 05-27-2024 [...] 03-27-2023 03-27-2023 Episodic Chronic ulcer of skin (20 sources) Pressure ulcer of right ankle, stage [...] Translations: [Anemia, unspecified] Onset: 02-12-2024 03-03-2024 Episodic Fluid and electrolyte disorders (20 sources) Hypokalemia; Translations: [Hypokalemia] Onset: 03-03-2023 08-11-2024 Episodic Genitourinary symptoms and ill-defined conditions (20 sources) Retention of urine; Translations: [Retention of urine, unspecified] Onset: 11-23-2022 Episodic Headache; including migraine (20 sources) Headache; Translations: [Headache] Onset: 10-30-2023 11-23-2022 Episodic Headache; including migraine (5 sources) Headache; including migraine Heart valve disorders (20 sources) Heart murmur; Translations: [Cardiac murmur, unspecified] Onset: 10-30-2023 11-23-2022 Episodic Malaise and fatigue (1 source) Asthenia Onset: 03-03-2023 01-28-2025 Episodic Mood disorders (17 sources) Mood disorders Onset: 11-07-2023 11-07-2023 Nausea and vomiting (20 sources) Nausea and vomiting; Translations: [Nausea with vomiting, unspecified] Onset: 12-09-2023 01-28-2025 Episodic Neoplasms of unspecified nature or uncertain behavior (1 source) Neoplasm of uncertain behavior of skin Onset: 02-15-2022 Resolved: 02-15-2022 Episodic Nonspecific chest pain (20 sources) Chest pain; Translations: [Chest pain, unspecified] Onset: 11-10-2023 04-01-2018 Episodic Other aftercare (12 sources) Follow-up orthopedic assessment; Translations: [Encounter for orthopedic aftercare following surgical amputation] Onset: 02-28-2024 02-28-2024 Episodic Other aftercare (1 source) Surgical follow-up; Translations: [Encounter for orthopedic aftercare following surgical amputation] Onset: 02-28-2024 02-28-2024 Episodic Other circulatory disease (13 sources) Low blood pressure; Translations: [Hypotension, unspecified] [...] 10-30-2023 10-30-2023 Episodic Other connective tissue disease (12 sources) Spasm; Translations: [Other muscle spasm] Onset: [...] Onset: 01-01-2024 Episodic Other male genital disorders (20 sources) Disorder of male genital organ; Translations: [Hydrocele, unspecified] Onset: 10-30-2023 10-30-2023 Episodic Other nervous system disorders (8 sources) Pain in limb - multiple; Translations: [Paresthesia of skin] Onset: 09-22-2020 12-17-2023 Episodic Other nervous system disorders (8 sources) Paresthesia of lower extremity; Translations: [Paresthesia [...] Chronic back pain Onset: 03-15-2024 01-28-2025 Episodic Residual codes; unclassified (1 source) Pain, unspecified; Translations: [Pain, unspecified] Onset: 03-12-2024 Episodic Screening and history of mental health [...] Name Value Interpretation Reference Range Facility Reminderson 02-28-2025 Reminders Reminders From: Clair Valverde To: EU - Administrative; Sent: 07/05/2024 09:08:37 EST Show up: 02/02/2025 10:08:00 EDT Subject: 1 yr f/u w/psa Due Date/Time: 05/27/2025 09:08:00 EST Reminder/Recall Pt needs scheduled for 1yr f/u w/psa w/PRW in May 2025. LVm w/ patient stating they needed to call and get appointment scheduled. PT was scheduled and no showed, not trackable. Normal [facility] NM Heart Perfusion W stress and W radionuclide Sachin 02-05-2025 Normal Lexiscan Myov iew cardiac perfusion stress test. No evidence of ischemia or myocardial infarction by perfusion imaging. Normal left ventricular systolic function, ejection fraction 61%. When compared to a study from 2022, no significant interval changes were seen. Signed by: Pascale Arnold 02/05/2025 6:05 PM Dictation workstation: [id number] Interpreted By: Pascale Sweeney, and Orquidea Fernando STUDY: MYOCARDIAL PERFUSION STRESS TEST WITH LEXISCAN Performing facility: [facility], [address] [place] [address], [address], [address] Provider: Pascale Arnold MD, [facility] PCP: Dr. Wm Lynch Supervising provider: Lui Schmidt DO, [facility] INDICATION: Signs/Symptoms: ,R07.9 Chest pain, unspecified HISTORY: Gender: M; Age: 59 y/o ; Height: HT 182.9 cm cm; Weight: WT 95.709 kg kg. Chest Pain; CAD; High Cholesterol; Diabetes; SOB; COPD; Quit smoking 4 years ago. Cardiac catheterization on 2017. PTCA on 2017. COMPARISON: Previous nuclear testing completed at [facility]. ACCESSION NUMBER(S): [id number] ORDERING CLINICIAN: PASCALE RANOLD TECHNIQUE: ONE DAY protocol. Stress injection: Date:02-05-25, [...] There was no evidence of attenuation artifact. [facility] MM[facility]AL Pascale Arnold M D - 02/05/2025 Interpreted By: Pascale Arnold and Giannuzzi Michael STUDY: MYOCARDIAL PERFUSION STRESS TEST WITH LEXISCAN Performing facility: [facility], [address] [place] [address], [address], [place] [address] [facility] Provider: Pascale Arnold MD, [facility] PCP: Dr. Wm Lynch Supervising provider: Lui Schmidt DO, [facility] INDICATION: Signs/Symptoms: ,R07.9 Chest pain, unspecified HISTORY: Gender: M; Age: 59 y/o ; Height: HT 182.9 cm cm; Weight: WT 95.709 kg kg. Chest Pain; CAD; High Cholesterol; Diabetes; SOB; COPD; Quit smoking 4 years ago. Cardiac catheterization on 2017. PTCA on 2017. COMPARISON: Previous nuclear testing completed at [facility]. ACCESSION NUMBER(S): [id number] ORDERING CLINICIAN: PASCALE ARNOLD TECHNIQUE: ONE DAY [...] Pascale Arnold 02/05/2025 6:05 PM Dictation workstation: [id number] [facility] Work Phone: [facility] Work Phone: Radiology Study observation (narrative) [facility] Work Phone: NUCLEAR STRESS TESTon 2024 NUCLEAR STRESS TEST Interpreted By: Ibra himPascale and Giannuzzi Michael STUDY: MYOCARDIAL PERFUSION STRESS TEST WITH LEXISCAN Performing facility: [facility], [address], [address], [place] [address] [facility] Provider: Pascale Arnold MD, [facility] PCP: Dr. Wm Lynch Supervising provider: Lui Schmidt DO, [facility] INDICATION: Signs/Symptoms: ,R07.9 Chest pain, unspecified HISTORY: Gender: M; Age: 59 y/o ; Height: HT 182.9 cm cm; Weight: WT 95.709 kg kg. Chest Pain; CAD; High Cholesterol; Diabetes; SOB; COPD; Quit smoking 4 years ago. Cardiac catheterization on 2017. PTCA on 2017. COMPARISON: Previous nuclear testing completed at [facility]. ACCESSION NUMBER(S): [id number] ORDERING CLINICIAN: PASCALE ARNOLD TECHNIQUE: ONE DAY [...] Pascale Arnold 02/05/2025 6:05 PM Dictation workstation: [id number] [facility] A1C with Estimated Average Ines whitman 10-26-2024 Glucose [Mass/Vol] 192 mg/dL Normal [facility] Comment on above: Result Comment: PERF ORMED BY:[address] [place], [place] [id number] MEDICAL DIRECTORBREANNE RUTHERFORD M.D. Performed By: #### A 1C [facility] eA ####[id number] [place] [address] [facility] [[email or web address]] HbA1c (Bld) [Mass fraction] 8.3 % High 4.3-5.6 [facility] Comment on above: Result Comment: Incr eased risk for diabetes: 5.7 - 6.4 diabetes: >6.4 glycemic control for adults with diabetes: <7.0 Performed By: #### A 1C [facility] eA ####[facility] [place] [address] [facility] [[email or web address]] Alanine aminotransferase [En zymatic activity/volume] in Serum or PlasmaOrdered By: Teresa Lynch on 10-26-2024 ALT [Catalytic activity/Vol] Alanine aminotransferase [Enzymatic activity/volume] in Serum or Plasma [facility] Albumin [Mass/volume] in Ser um or Plasma by Bromocresol green (BCG) dye binding methoOrdered By: Teresa Lynch on 10-26-2024 Albumin BCG dye [Mass/Vol] Albumin [Mass/volume] in Serum or Plasma by Bromocresol green (BCG) dye binding metho 3.5-5.7 [facility] Alkaline phosphatase [Enzyma tic activity/volume] in Serum or PlasmaOrdered By: Teresa Lynch on 10-26-2024 ALP [Catalytic activity/Vol] Alkaline phosphatase [Enzymatic activity/volume] in Serum or Plasma High 34-104 [facility] Anisocytosis LM Ql (Bld)Orde red By: Maurice Francis on 10-26-2024 Anisocytosis Ql (Bld) Anisocytosis [Pres ence] in Blood by Light microscopy [facility] Appearance of UrineOrdered B y: Amina Fagan on 10-26-2024 Appearance (U) Urine appearance Clear [facility] Aspartate aminotransferase [ Enzymatic activity/volume] in Serum or PlasmaOrdered By: Teresa Lynch on 10-26-2024 AST [Catalytic activity/Vol] Aspartate aminotransferase [Enzymatic activity/volume] in Serum or Plasma 13-39 [facility] Basophils Auto (Bld) [#/Vol] Ordered By: Maurice Francis on 10-26-2024 Basophils (Bld) [#/Vol] Automated basophil count 0.0-0.2 [facility] Basophils/100 WBC Auto (Bld) Ordered By: Maurice Francis on 10-26-2024 Basophils/100 WBC (Bld) Automated basophil % . [facility] Bilirubin Test strip Ql (U)O rdered By: Amina Fagan on 10-26-2024 Bilirubin Ql (U) Bilirubin.total [Presence] in Urine by Test strip Negative [facility] Bilirubin.total [Mass/volume ] in Serum or PlasmaOrdered By: Teresa Lynch on 10-26-2024 Bilirubin [Mass/Vol] Bilirubin.total [Mass/volume] in Serum or Plasma 0.3-1.0 [facility] Blood estimated average gluc ose determination by estimation from glycated hemoglobinOrdered By: Teresa Lynch on 10-26-2024 Average glucose Estimated from glycated hemoglobin (Bld) [Mass/Vol] Glucose mean value [Mass/volume] in Blood Estimated from glycated hemoglobin [facility] Calcium [Mass/volume] in Ser um or PlasmaOrdered By: Teresa Lynch on 10-26-2024 Calcium [Mass/Vol] Calcium [Mass/volume ] in Serum or Plasma 8.6-10.3 [facility] Carbon dioxide, total [Moles /volume] in Serum or PlasmaOrdered By: Teresa Lynch on 10-26-2024 CO2 [Moles/Vol] Carbon dioxide, tota l [Moles/volume] in Serum or Plasma 21.0-31.0 [facility] Chloride [Moles/volume] in S iila or PlasmaOrdered By: Teresa Lynch on 10-26-2024 Chloride [Moles/Vol] Chloride [Moles/vol ume] in Serum or Plasma 98-107 [facility] Cholesterol [Mass/volume] in Serum or PlasmaOrdered By: Teresa Lynch on 10-26-2024 Cholesterol [Mass/Vol] Cholesterol [Mass /volume] in Serum or Plasma Low 140-200 [facility] Comment on above: Chol less than 200 m g/dl low riskChol 201-239 mg/dl borderline riskChol 240 mg/dl and greater high risk Cholesterol in HDL [Mass/vol ume] in Serum or PlasmaOrdered By: Teresa Lynch on 10-26-2024 Cholesterol in HDL [Mass/Vol] Serum or plasma high density lipoprotein (HDL) cholesterol measurement Low 23-92 [facility] Comment on above: HDL CHOL ATP-III CLA SSIFICATION Cardiovascular RiskHDL > or equal to 60 mg/dL LOWHDL < 40 mg/dL HIGH Cholesterol in LDL Calc [Mas s/Vol]Ordered By: Teresa Lynch on 10-26-2024 Cholesterol in LDL [Mass/Vol] Cholesterol in LDL [Mass/volume] in Serum or Plasma by calculation 0-100 [facility] Comment on above: LDL ATP III CLASSIFI CATIONLDL less than 100 mg/dL OptimalLDL 100-129 mg/dL Near or above optimalLDL 130-159 mg/dL Borderline highLDL 160-189 mg/dL HighLDL greater than 189 mg/dL Very high Cholesterol in LDL [Mass/vol ume] in Serum or PlasmaOrdered By: Teresa Lynch on 10-26-2024 Cholesterol in LDL [Mass/Vol] Cholesterol in LDL [Mass/volume] in Serum or Plasma 0-100 [facility] Comment on above: LDL ATP III CLASSIFI CATIONLDL less than 100 mg/dL OptimalLDL 100-129 mg/dL Near or above optimalLDL 130-159 mg/dL Borderline highLDL 160-189 mg/dL HighLDL greater than 189 mg/dL Very high Cholesterol in VLDL Calc [Ma ss/Vol]Ordered By: Teresa Lynch on 10-26-2024 Cholesterol in VLDL [Mass/Vol] Cholesterol in VLDL [Mass/volume] in Serum or Plasma by calculation [facility] Comment on above: Test not performed Color Auto (U)Ordered By: Norris Fagan on 10-26-2024 Color (U) Color of Urine by Auto Yellow [facility] Comprehensive Metabolic Pane guy 10-26-2024 Albumin [Mass/Vol] 4.3 g/dL Normal 3.5-5.7 [facility] Comment on above: Performed By: #### C MP, RENAL ####[address] [address] [facility] [[email or web address]] Albumin/Globulin [Mass ratio] 1.7 {ratio} Normal [facility] Comment on above: Performed By: #### C MP, RENAL ####[address] [address] [facility] [[email or web address]] ALP [Catalytic activity/Vol] 132 U/L High 34-104 [facility] Comment on above: Performed By: #### C MP, RENAL ####[address] [address] [facility] [[email or web address]] ALT [Catalytic activity/Vol] 16 U/L Normal 7-52 [facility] Comment on above: Performed By: #### C MP, RENAL ####[address] [address] [facility] [[email or web address]] Anion gap [Moles/Vol] 16.4 mmol/L High 6.0-15.0 [facility] Comment on above: Performed By: #### C MP, RENAL ####[address] [address] [facility] [[email or web address]] AST [Catalytic activity/Vol] 13 U/L Normal 13-39 [facility] Comment on above: Performed By: #### C MP, RENAL ####[address] [address] [facility] [[email or web address]] Bilirubin [Mass/Vol] 0.4 mg/dL Normal 0.3-1.0 [facility] Comment on above: Performed By: #### C MP, RENAL ####[address] [address] [facility] [[email or web address]] Calcium [Mass/Vol] 9.4 mg/dL Normal 8.6-10.3 [facility] Comment on above: Performed By: #### C MP, RENAL ####[address] [place] [id number] [facility] [[email or web address]] Chloride [Moles/Vol] 98 mmol/L Normal 98-107 [facility] Comment on above: Performed By: #### C MP, RENAL ####[address] [id number] [facility] [[email or web address]] CO2 [Moles/Vol] 27.2 mmol/L Normal 21.0-31.0 [facility] Comment on above: Performed By: #### C MP, RENAL ####[address] [id number] [facility] [[email or web address]] Creatinine [Mass/Vol] 2.36 mg/dL High 0.70-1.30 [facility] Comment on above: Performed By: #### C MP, RENAL ####[id number] [facility] [[email or web address]] Estimated GFR 30.940 mL/Min Normal [facility] Comment on above: Performed By: #### C MP, RENAL ####[place] [id number] [facility] [[email or web address]] Globulin (S) [Mass/Vol] 2.6 g/dL Normal [facility] Comment on above: Performed By: #### C MP, RENAL ####[address] [id number] [facility] [[email or web address]] Glucose [Mass/Vol] 264 mg/dL High 70-100 [facility] Comment on above: Result Comment: Coolin Glucose Reference Range is dependent on time and content of last meal. Glucose of more than 200 mg/dL in a nonstressed, ambulatory subject supports the diagnosis of Diabetes Mellitus. ADA recommended reference range Performed By: #### C MP, RENAL ####[address] [id number] [facility] [[email or web address]] Potassium [Moles/Vol] 4.6 mmol/L Normal 3.5-5.1 [facility] Comment on above: Performed By: #### C MP, RENAL ####[place] [id number] [facility] [[email or web address]] Protein [Mass/Vol] 6.9 g/dL Normal 6.4-8.9 [facility] Comment on above: Performed By: #### C MP, RENAL ####[facility] Sodium [Moles/Vol] 137 mmol/L Normal 136-145 [facility] Comment on above: Performed By: #### C MP, RENAL ####[facility] [place] [id number] [facility] [[email or web address]] Urea nitrogen [Mass/Vol] 33 mg/dL High 7-25 [facility] Comment on above: Performed By: #### C MP, RENAL ####[facility] [id number] [facility] [[email or web address]] Creatinine [Mass/volume] in Serum or PlasmaOrdered By: Teresa Lynch on 10-26-2024 Creatinine [Mass/Vol] Creatinine [Mass/v olume] in Serum or Plasma High 0.70-1.30 [facility] Creatinine [Mass/volume] in UrineOrdered By: Amina Fagan on 10-26-2024 Creatinine (U) [Mass/Vol] Creatinine [Mass/volume] in Urine [facility] Comment on above: No reference range e stablished Eosinophils Auto (Bld) [#/Vo l]Ordered By: Maurice Francis on 10-26-2024 Eosinophils (Bld) [#/Vol] Automated eosinophil count 0.0-0.45 [facility] Eosinophils/100 WBC Auto (Bl d)Ordered By: Maurice Francis on 10-26-2024 Eosinophils/100 WBC (Bld) Automated eosinophil % . [facility] Erythrocyte distribution wid th Auto (RBC) [Ratio]Ordered By: Maurice Francis on 10-26-2024 Erythrocyte distribution width (RBC) [Ratio] Erythrocyte distribution width [Ratio] by Automated count High 12.0-14.8 [facility] Erythrocyte morphology findi ng [Identifier] in BloodOrdered By: Maurice Francis on 10-26-2024 RBC morphology finding Nom (Bld) RBC morphology [facility] Ferritinon 10-26-2024 Ferritin [Mass/Vol] 8.3 ng/mL Low 23.9-336.2 [facility] Comment on above: Performed By: #### F ER, [id number], URIC, PTH, FE and TIBC ####[facility] [id number] [place] [address] [facility] [[email or web address]] Ferritin [Mass/volume] in Se rum or PlasmaOrdered By: Amina Fagan on 10-26-2024 Ferritin [Mass/Vol] Ferritin [Mass/volum e] in Serum or Plasma Low 23.9-336.2 [facility] Folate [Mass/volume] in Seru m or PlasmaOrdered By: Amina Fagan on 10-26-2024 Folate [Mass/Vol] Folate [Mass/volume] in Serum or Plasma >5.9 [facility] Comment on above: Folate reference ran ge: >5.9 ng/mlThe WHO technical consultation on folate and vitamin [id number] has determined that folate concentrations lessthan 4 ng/ml are considered deficient. Globulin Calc (S) [Mass/Vol] Ordered By: Teresa Lynch on 10-26-2024 Globulin (S) [Mass/Vol] Serum globulin measurement by calculation (mass/volume) [facility] Glucose [Mass/volume] in Ser um or PlasmaOrdered By: Teresa Lynch on 10-26-2024 Glucose [Mass/Vol] Glucose [Mass/volume ] in Serum or Plasma High 70-100 [facility] Comment on above: ADA recommended refe [...] in Urine by Test strip High Normal [facility] Hematocrit Auto (Bld) [Volum e fraction]Ordered By: Maurice Francis on 10-26-2024 Hematocrit (Bld) [Volume fraction] Hematocrit [Volume Fraction] of Blood by Automated count 38.8-50.0 [facility] Hemoglobin A1c/Hemoglobin.to roberto carlos in BloodOrdered By: Teresa Lynch on 10-26-2024 HbA1c (Bld) [Mass fraction] Hemoglobin A1c percentage High 4.3-5.6 [facility] Comment on above: Increased risk for d iabetes: 5.7 - 6.4diabetes: >6.4glycemic control for adults with diabetes: <7.0 Hemoglobin Test strip Ql (U) Ordered By: Amina Fagan on 10-26-2024 Hemoglobin Ql (U) Hemoglobin [Presence ] in Urine by Test strip Negative [facility] Hemoglobin [Mass/volume] in BloodOrdered By: Maurice Francis on 10-26-2024 Hemoglobin (Bld) [Mass/Vol] Hemoglobin [Mass/volume] in Blood 13.0-17.0 [facility] Iron [Mass/volume] in Serum or PlasmaOrdered By: Amina Fagan on 10-26-2024 Iron [Mass/Vol] Iron [Mass/volume] i n Serum or Plasma Low 50-212 [facility] Iron and TIBC Profileon 10-04 % Iron Saturation 6.9 % Low 20-50 [facility] Comment on above: Performed By: #### F ER, [id number], URIC, PTH, FE and TIBC ####[id number] [place] [address] [facility] [[email or web address]] Iron [Mass/Vol] 31 ug/dL Low 50-212 [facility] Comment on above: Performed By: #### F ER, [id number], URIC, PTH, FE and TIBC ####[address] [place] [address] [facility] [[email or web address]] Total Iron Binding Capacity 449 ug/dL Normal 255-450 [facility] Comment on above: Performed By: #### F ER, [id number], URIC, PTH, FE and TIBC ####[address] [place] [address] [facility] [[email or web address]] Transferrin [Mass/Vol] 321 mg/dL Normal 203-362 [facility] Comment on above: Performed By: #### F ER, [id number], URIC, PTH, FE and TIBC ####[address] [place] [address] [facility] [[email or web address]] Ketones Test strip Ql (U)Ord ered By: Amina Fagan on 10-26-2024 Ketones Ql (U) Ketones [Presence] i n Urine by Test strip Negative [facility] LDL Cholesterol Measuredon 0 10-26-2024 LDL Cholesterol Measured 36 mg/dL Normal 0-100 [facility] Comment on above: Result Comment: LDL ATP III CLASSIFICATION LDL less than 100 mg/dL Optimal LDL 100-129 mg/dL Near or above optimal LDL 130-159 mg/dL Borderline high LDL 160-189 mg/dL High LDL greater than 189 mg/dL Very high Performed By: #### L DLD, MG, URIC, TSH3, [id number], PSAS, LIPID ####[id number] Leukocyte esterase [Presence ] in Urine by Test stripOrdered By: Amina Fagan on 10-26-2024 Leukocyte esterase Test strip Ql (U) Leukocyte esterase [Presence] in Urine by Test strip Negative [facility] Leukocytes [#/volume] correc jorge for nucleated erythrocytes in Blood by Automated counOrdered By: Maurice Francis on 10-26-2024 WBC corrected for nucl RBC Auto (Bld) [#/Vol] Leukocytes [#/volume] corrected for nucleated erythrocytes in Blood by Automated coun 4.1-10.5 [facility] Lipid Panelon 10-26-2024 Cholesterol [Mass/Vol] 108 mg/dL Low 140-200 [facility] Comment on above: Result Comment: Chol less than 200 mg/dl low risk Chol 201-239 mg/dl borderline risk Chol 240 mg/dl and greater high risk Performed By: #### L DLD, MG, URIC, TSH3, [id number], PSAS, LIPID ####[id number] [place] [id number] [facility] [[email or web address]] Cholesterol in HDL [Mass/Vol] 21 mg/dL Low 23-92 [facility] Comment on above: Result Comment: HDL CHOL ATP-III CLASSIFICATION Cardiovascular Risk HDL > or equal to 60 mg/dL LOW HDL < 40 mg/dL HIGH Performed By: #### L DLD, MG, URIC, TSH3, [id number], PSAS, LIPID ####[place] [id number] Cholesterol.total/Chol esterol in HDL [Mass ratio] 5.1 {ratio} Normal <5.0 [facility] Comment on above: Performed By: #### L DLD, MG, URIC, TSH3, [id number], PSAS, LIPID ####[address] [id number] LDL Cholesterol,Calculated <10 Normal 0-100 [facility] Comment on above: Result Comment: LDL ATP III CLASSIFICATION LDL less than 100 mg/dL Optimal LDL 100-129 mg/dL Near or above optimal LDL 130-159 mg/dL Borderline high LDL 160-189 mg/dL High LDL greater than 189 mg/dL Very high Performed By: #### L DLD, MG, URIC, TSH3, [id number], PSAS, LIPID ####[address] [place] [id number] Triglyceride w/Reflex 529 mg/dL High 0-149 [facility] Comment on above: Result [...] By: #### L DLD, MG, URIC, TSH3, [id number], PSAS, LIPID ####[address] VLDL CHOLESTEROL Not performed Normal [facility] Comment on above: Performed By: #### L DLD, MG, URIC, TSH3, [id number], PSAS, LIPID ####[address] [id number] Lymphocytes Auto (Bld) [#/Vo l]Ordered By: Maurice Francis on 10-26-2024 Lymphocytes (Bld) [#/Vol] Lymphocytes [#/volume] in Blood by Automated count 1.00-4.8 [facility] Lymphocytes/100 WBC Auto (Bl d)Ordered By: Maurice Francis on 10-26-2024 Lymphocytes/100 WBC (Bld) Lymphocytes/100 leukocytes in Blood by Automated count . [facility] MCH Auto (RBC) [Entitic mass ]Ordered By: Maurice Francis on 10-26-2024 MCH (RBC) [Entitic mass] MCH [Entitic mass] by Automated count Low 27.5-35.2 [facility] MCHC Auto (RBC) [Mass/Vol]Or dered By: Maurice Francis on 10-26-2024 MCHC (RBC) [Mass/Vol] MCHC [Mass/volume] by Automated count 32.5-35.6 [facility] MCV Auto (RBC) [Entitic vol] Ordered By: Maurice Francis on 10-26-2024 MCV (RBC) [Entitic vol] MCV [Entitic volume] by Automated count Low 83.5-101 [facility] Magnesiumon 10-26-2024 Magnesium [Mass/Vol] 1.8 mg/dL Low 1.9-2.7 [facility] Comment on above: Performed By: #### L DLD, MG, URIC, TSH3, [id number], PSAS, LIPID ####[facility] [place] [address] [facility] [[email or web address]] Magnesium [Mass/volume] in S ilia or PlasmaOrdered By: Teresa Lynch on 10-26-2024 Magnesium [Mass/Vol] Magnesium [Mass/vol ume] in Serum or Plasma Low 1.9-2.7 [facility] Microalbumin [Mass/volume] i n UrineOrdered By: Teresa Lynch on 10-26-2024 Albumin DL <= 20 mg/L (U) [Mass/Vol] Microalbumin [Mass/volume] in Urine 0.0-1.8 [facility] Microalbumin, Urine (Random) on 10-26-2024 Albumin DL <= 20 mg/L (U) [Mass/Vol] 0.9 mg/dL Normal 0.0-1.8 [facility] Comment on above: Result Comment: PERF ORMED BY:[facility] [place], [place] [id number] MEDICAL MARY RUTHERFORD M.D. Performed By: #### U RMA ####[facility] [id number] Microcytes LM Ql (Bld)Ordere d By: Maurice Reinar on 10-26-2024 Microcytes Ql (Bld) Microcytes [Presence ] in Blood by Light microscopy [facility] Monocytes Auto (Bld) [#/Vol] Ordered By: Maurice Tito on 10-26-2024 Monocytes (Bld) [#/Vol] Automated blood monocyte count 0.0-0.8 [facility] Monocytes/100 WBC Auto (Bld) Ordered By: Maurice Tito on 10-26-2024 Monocytes/100 WBC (Bld) Automated monocyte % . [facility] Neutrophils Auto (Bld) [#/Vo l]Ordered By: Maurice Tito on 10-26-2024 Neutrophils (Bld) [#/Vol] Neutrophils [#/volume] in Blood by Automated count 1.8-7.7 [facility] Neutrophils/100 WBC Auto (Bl d)Ordered By: Maurice Tito on 10-26-2024 Neutrophils/100 WBC (Bld) Automated neutrophil % . [facility] Nitrite Test strip Ql (U)Ord ered By: Amina Fagan on 10-26-2024 Nitrite Ql (U) Nitrite [Presence] i n Urine by Test strip Negative [facility] No Panel InformationOrdered By: Teresa Lynch on 10-26-2024 Estimated GFR (CKD-EPI) 30.940 mL/Min [facility] Creatinine Clearance (Chem N/A [facility] 30.940 mL/Min [facility] N/A [facility] Nucleated erythrocytes [Pres ence] in Blood by Automated countOrdered By: Maurice Francis on 10-26-2024 Nucleated RBC Auto Ql (Bld) Nucleated erythrocytes [Presence] in Blood by Automated count 0-0.5 [facility] PSA Screen (Yearly Only)on 0 10-26-2024 PSA Screen (Yearly Only) 1.160 ng/mL Normal 0.000-4.00 0 [facility] Comment on above: Result Comment: Josseline fiore tumor marker results determined by assays using different manufacturers or methods may not be comparable. [facility] fixture fabricator repairer and method: LEOBARDO UNICEL DXI, CHEMILUMINESCENT IMMUNOASSAY.PERFORMED BY:[address] [address] [place], [place] [id number] MEDICAL MARY RUTHERFORD M.D. Performed By: #### L DLD, MG, URIC, TSH3, [id number], PSAS, LIPID ####[id number] [place] [address] [facility] [[email or web address]] Parathyrin.intact [Mass/volu me] in Serum or PlasmaOrdered By: Amina Fagan on 10-26-2024 Parathyrin.intact [Mass/Vol] Parathyrin.intact [Mass/volume] in Serum or Plasma [facility] Parathyroid Hormone Intacton 10-26-2024 Parathyroid Hormone Intact 87.9 pg/mL Normal [facility] Comment on above: Result Comment: PERF ORMED BY:[address] [place], [place] [id number] MEDICAL MARY RUTHERFORD M.D. Performed By: #### F ER, [id number], URIC, PTH, FE and TIBC ####[address] [address] [facility] [[email or web address]] Phosphate [Mass/volume] in S ilia or PlasmaOrdered By: Teresa Lynch on 10-26-2024 Phosphate [Mass/Vol] Phosphate [Mass/vol ume] in Serum or Plasma 2.5-4.5 [facility] Platelet adequacy [Presence] in Blood by Light microscopyOrdered By: Maurice Francis on 10-26-2024 Platelets LM Ql (Bld) Platelet adequacy [Presence] in Blood by Light microscopy Normal [facility] Platelet mean volume Auto (B ld) [Entitic vol]Ordered By: Maurice Francis on 10-26-2024 Platelet mean volume (Bld) [Entitic vol] Platelet mean volume [Entitic volume] in Blood by Automated count 6.6-10.1 [facility] Platelet morphology finding [Identifier] in BloodOrdered By: Maurice Francis on 10-26-2024 Platelet morphology finding Nom (Bld) Platelet morphology finding [Identifier] in Blood [facility] Platelets Auto (Bld) [#/Vol] Ordered By: Maurice Francis on 10-26-2024 Platelets (Bld) [#/Vol] Platelets [#/volume] in Blood by Automated count 150-450 [facility] Platelets Large [Presence] i n Blood by Light microscopyOrdered By: Maurice Francis on 10-26-2024 Platelets Large LM Ql (Bld) Platelets Large [Presence] in Blood by Light microscopy [facility] Polychromasia [Presence] in Blood by Light microscopyOrdered By: Maurice Francis on 10-26-2024 Polychromasia LM Ql (Bld) Polychromasia [Presence] in Blood by Light microscopy [facility] Potassium [Moles/volume] in Serum or PlasmaOrdered By: Teresa Lynch on 10-26-2024 Potassium [Moles/Vol] Potassium [Moles/v olume] in Serum or Plasma 3.5-5.1 [facility] Prostate specific Ag [Mass/v olume] in Serum or PlasmaOrdered By: Teresa Lynch on 10-26-2024 Prostate specific Ag [Mass/Vol] Prostate specific Ag [Mass/volume] in Serum or Plasma 0.000-4.00 0 [facility] Comment on above: Serial tumor marker results determined by assays using different manufacturers or methods may not be comparable.[facility] fixture fabricator repairer and method:NicheEL DXI, CHEMILUMINESCENT IMMUNOASSAY. Protein Creat Ratio Ur Rando mon 10-26-2024 Creatinine, Urine (Random) 62.00 mg/dL Normal [facility] Comment on above: Result Comment: No r eference range established Performed By: #### P JS UA ####[facility] [id number] [facility] [[email or web address]] Protein (U) [Mass/Vol] 12 mg/dL High 0-9 [facility] Comment on above: Performed By: #### P JS UA ####[id number] [facility] [[email or web address]] Urine Protein/Creatinine Ratio 194 mg/g{Cre} Normal 0-200 [facility] Comment on above: Result Comment: PERF ORMED BY:[address] [address] [place], [place] [phone] MEDICAL DIRECTORBREANNE RUTHERFORD M.D. Performed By: #### P ROCRERAT, UA ####[address] [address] [facility] [[email or web address]] Protein Test strip (U) [Mass /Vol]Ordered By: Amina Fagan on 10-26-2024 Protein (U) [Mass/Vol] Protein [Mass/vol ume] in Urine by Test strip Negative [facility] Protein [Mass/volume] in Ser um or PlasmaOrdered By: Teresa Lynch on 10-26-2024 Protein [Mass/Vol] Protein [Mass/volume ] in Serum or Plasma 6.4-8.9 [facility] Protein [Mass/volume] in Uri neOrdered By: Amina Fagan on 10-26-2024 Protein (U) [Mass/Vol] Protein [Mass/vol ume] in Urine High 0-9 [facility] RBC Auto (Bld) [#/Vol]Ordere d By: Maurice Francis on 10-26-2024 RBC (Bld) [#/Vol] Erythrocytes [#/volu me] in Blood by Automated count 3.90-5.60 [facility] Renal Function Panelon 10-26 Phosphate [Mass/Vol] 3.9 mg/dL Normal 2.5-4.5 [facility] Comment on above: Result Comment: PERF ORMED BY:[address] [place], [place] [phone] MEDICAL MARY RUTHERFORD M.D. Performed By: #### C MP, RENAL ####[place] [id number] [facility] [[email or web address]] Scan and CBCon 10-26-2024 Anisocytosis Ql (Bld) Marked Normal [facility] Comment on above: Performed By: #### S CAN CBC ####[address] Basophils (Bld) [#/Vol] 0.1 10*3/uL Normal 0.0-0.2 [facility] Comment on above: Performed By: #### S CAN CBC ####[address] Basophils/100 WBC (Bld) 1.1 % Normal . [facility] Comment on above: Performed By: #### S CAN CBC ####[address] Eosinophils (Bld) [#/Vol] 0.3 10*3/uL Normal 0.0-0.45 [facility] Comment on above: Performed By: #### S CAN CBC ####[address] Eosinophils/100 WBC (Bld) 3.5 % Normal . [facility] Comment on above: Performed By: #### S CAN CBC ####[address] Erythrocyte distribution width (RBC) [Ratio] 21.5 % High 12.0-14.8 [facility] Comment on above: Performed By: #### S CAN CBC ####[address] Hematocrit (Bld) [Volume fraction] 42.7 % Normal 38.8-50.0 [facility] Comment on above: Performed By: #### S CAN CBC ####[address] Hemoglobin (Bld) [Mass/Vol] 14.3 g/dL Normal 13.0-17.0 [facility] Comment on above: Performed By: #### S CAN CBC ####[address] Large Platelets Slight Normal [facility] Comment on above: Result Comment: PERF ORMED BY:[address] [place], [place] [phone] MEDICAL MARY RUTHERFORD M.D. Performed By: #### S CAN CBC ####[address] Lymphocytes (Bld) [#/Vol] 1.6 10*3/uL Normal 1.00-4.8 [facility] Comment on above: Performed By: #### S CAN CBC ####[address] Lymphocytes/100 WBC (Bld) 17.7 % Normal . [facility] Comment on above: Performed By: #### S CAN CBC ####[address] MCH (RBC) [Entitic mass] 25.9 pg Low 27.5-35.2 [facility] Comment on above: Performed By: #### S CAN CBC ####[address] MCV (RBC) [Entitic vol] 77.1 fL Low 83.5-101 [facility] Comment on above: Performed By: #### S CAN CBC ####[address] Mean Corpuscular HGB Conc 33.6 g/dL Normal 32.5-35.6 [facility] Comment on above: Performed By: #### S CAN CBC ####[address] Microcytosis Slight Normal [facility] Comment on above: Performed By: #### S CAN CBC ####[address] Monocytes (Bld) [#/Vol] 0.8 10*3/uL Normal 0.0-0.8 [facility] Comment on above: Performed By: #### S CAN CBC ####[address] Monocytes/100 WBC (Bld) 9.2 % Normal . [facility] Comment on above: Performed By: #### S CAN CBC ####[address] Neutrophils (Bld) [#/Vol] 6.0 10*3/uL Normal 1.8-7.7 [facility] Comment on above: Performed By: #### S CAN CBC ####[place] [id number] [facility] [[email or web address]] Neutrophils/100 WBC (Bld) 68.5 % Normal . [facility] Comment on above: Performed By: #### S CAN CBC ####[address] [address] [facility] [[email or web address]] NRBC% 0.1 /100{WBC} Normal 0-0.5 [facility] Comment on above: Performed By: #### S CAN CBC ####[place] [id number] [facility] [[email or web address]] Platelet Estimate Normal Normal Normal [facility] Comment on above: Performed By: #### S CAN CBC ####[place] [id number] [facility] [[email or web address]] Platelet mean volume (Bld) [Entitic vol] 9.5 fL Normal 6.6-10.1 [facility] Comment on above: Performed By: #### S CAN CBC ####[place] [id number] [facility] [[email or web address]] Platelets (Bld) [#/Vol] 167 10*3/uL Normal 150-450 [facility] Comment on above: Performed By: #### S CAN CBC ####[place] [id number] [facility] [[email or web address]] Polychromasia Slight Normal [facility] Comment on above: Performed By: #### S CAN CBC ####[place] [id number] [facility] [[email or web address]] RBC (Bld) [#/Vol] 5.54 10*6/uL Normal 3.90-5.60 [facility] Comment on above: Performed By: #### S CAN CBC ####[address] [address] [facility] [[email or web address]] WBC (Bld) [#/Vol] 8.8 10*3/uL Normal 4.1-10.5 [facility] Comment on above: Performed By: #### S CAN CBC ####[facility] Serum or plasma albumin/glob ulin mass ratioOrdered By: Teresa Lynch on 10-26-2024 Albumin/Globulin [Mass ratio] Serum or plasma albumin/globulin mass ratio [facility] Serum or plasma anion gap de terminationOrdered By: Teresa Lynch on 10-26-2024 Anion gap [Moles/Vol] Serum or plasma an ion gap determination High 6.0-15.0 [facility] Serum or plasma iron binding capacity measurement (mass/volume)Ordered By: Amina Fagan on 10-26-2024 Iron binding capacity [Mass/Vol] Iron binding capacity [Mass/volume] in Serum or Plasma 255-450 [facility] Serum or plasma iron saturat ion measurement (mass fraction)Ordered By: Amina Fagan on 10-26-2024 Iron saturation [Mass fraction] Iron saturation [Mass Fraction] in Serum or Plasma Low 20-50 [facility] Serum or plasma total choles terol/high density lipoprotein (HDL) cholesterol mass ratOrdered By: Teresa Lynch on 10-26-2024 Cholesterol.total/Chol esterol in HDL [Mass ratio] Serum or plasma total cholesterol/high density lipoprotein (HDL) cholesterol mass rat <5.0 [facility] Sodium [Moles/volume] in Ser um or PlasmaOrdered By: Teresa Lynch on 10-26-2024 Sodium [Moles/Vol] Sodium [Moles/volume ] in Serum or Plasma 136-145 [facility] Specific gravity Test strip (U) [Rel density]Ordered By: Amina Fagan on 10-26-2024 Specific gravity (U) [Rel density] Specific gravity of Urine by Test strip 1.001-1.03 0 [facility] Thyroid Stimulating Hormoneo n 10-26-2024 TSH Qn 3.68 m[IU]/L Normal 0.45-5.33 [facility] Comment on above: Performed By: #### L DLD, MG, URIC, TSH3, [id number], PSAS, LIPID ####[facility] [id number] Thyrotropin [Units/volume] i n Serum or PlasmaOrdered By: Teresa Lynch on 10-26-2024 TSH Qn Thyrotropin [Units/volume] in Serum or Plasma 0.45-5.33 [facility] Transferrin [Mass/volume] in Serum or PlasmaOrdered By: Amina Fagan on 10-26-2024 Transferrin [Mass/Vol] Transferrin [Mass /volume] in Serum or Plasma 203-362 [facility] Triglyceride [Mass/volume] i n Serum or PlasmaOrdered By: Teresa Lynch on 10-26-2024 Triglyceride [Mass/Vol] Triglyceride [Mass/volume] in Serum or Plasma High 0-149 [facility] Comment on above: If the triglyceride [...] [Mass/volume] in Serum or Plasma High 4.4-7.6 [facility] Urea nitrogen [Mass/volume] in Serum or PlasmaOrdered By: Teresa Lynch on 10-26-2024 Urea nitrogen [Mass/Vol] Urea nitrogen [Mass/volume] in Serum or Plasma High 7-25 [facility] Uric Acidon 10-26-2024 Urate [Mass/Vol] 10.5 mg/dL High 4.4-7.6 [facility] Comment on above: Performed By: #### F ER, [id number], URIC, PTH, FE and TIBC ####[facility] [id number] Urate [Mass/Vol] 10.5 mg/dL High 4.4-7.6 [facility] Comment on above: Performed By: #### L DLD, MG, URIC, TSH3, [id number], PSAS, LIPID ####[address] [address] [facility] [[email or web address]] Urinalysison 10-26-2024 Appearance (U) Clear Normal Clear [facility] Comment on above: Order Comment: Name Collection Type:: Clean-Voided Midstream Performed By: #### P ROCRERAT, UA ####[address] [address] [facility] [[email or web address]] Bilirubin,Urine Negative Normal Negative [facility] Comment on above: Order Comment: Name Collection Type:: Clean-Voided Midstream Performed By: #### P ROCRERAT, UA ####[address] [address] [facility] [[email or web address]] Color (U) Light-Yellow Normal Yellow [facility] Comment on above: Order Comment: Name Collection Type:: Clean-Voided Midstream Performed By: #### P ROCRERAT, UA ####[address] [address] [facility] [[email or web address]] Glucose Ql (U) >= High Normal [facility] Comment on above: Order Comment: Name Collection Type:: Clean-Voided Midstream Performed By: #### P ROCRERAT, UA ####[address] [address] [facility] [[email or web address]] Ketones Ql (U) Negative Normal Negative [facility] Comment on above: Order Comment: Name Collection Type:: Clean-Voided Midstream Performed By: #### P ROCRERAT, UA ####[address] [address] [facility] [[email or web address]] Leukocyte esterase Test strip Ql (U) Negative Normal Negative [facility] Comment on above: Order Comment: Name Collection Type:: Clean-Voided Midstream Performed By: #### P ROCRERAT, UA ####[address] [address] [facility] [[email or web address]] Nitrite,Urine Negative Normal Negative [facility] Comment on above: Order Comment: Name Collection Type:: Clean-Voided Midstream Performed By: #### P ROCRERAT, UA ####[address] [address] [facility] [[email or web address]] Occult Blood,Urine Negative Normal Negative [facility] Comment on above: Order Comment: Name Collection Type:: Clean-Voided Midstream Result Comment: PERF ORMED BY:[address] [place], [place] [phone] MEDICAL MARY RUTHERFORD M.D. Performed By: #### P ROCRERAT, UA ####[place] [id number] [facility] [[email or web address]] pH (U) 5.5 [pH] Normal 5.0-9.0 [facility] Comment on above: Order Comment: Name Collection Type:: Clean-Voided Midstream Performed By: #### P ROCRERAT, UA ####[place] [id number] [facility] [[email or web address]] Protein,Urine Negative Normal Negative [facility] Comment on above: Order Comment: Name Collection Type:: Clean-Voided Midstream Performed By: #### P ROCRERAT, UA ####[place] [id number] [facility] [[email or web address]] Specificy [place],Urine 1.020 Normal 1.001-1.03 0 [facility] Comment on above: Order Comment: Name Collection Type:: Clean-Voided Midstream Performed By: #### P ROCRERAT, UA ####[address] [address] [facility] [[email or web address]] Urobilinogen,Urine Normal Normal Normal [facility] Comment on above: Order Comment: Name Collection Type:: Clean-Voided Midstream Performed By: #### P ROCRERAT, UA ####[address] [address] [facility] [[email or web address]] Urine protein/creatinine rat ioOrdered By: Amina Fagan on 10-26-2024 Protein/Creatinine (U) [Ratio] Urine protein/creatinine ratio 0-200 [facility] Urobilinogen Test strip (U) [Mass/Vol]Ordered By: Amina Fagan on 10-26-2024 Urobilinogen (U) [Mass/Vol] Urobilinogen [Mass/volume] in Urine by Test strip Normal [facility] Vit. B12/Folate Profileon Cobalamin (Vitamin B12) [Mass/Vol] 195 pg/mL Normal 180-914 [facility] Comment on above: Performed By: #### F ER, [id number], URIC, PTH, FE and TIBC ####[id number] [place] [address] [facility] [[email or web address]] Folate 10.1 ng/mL Normal >5.9 [facility] Comment on above: Result Comment: Aure te reference range: >5.9 ng/ml The WHO technical consultation on folate and vitamin b12 deficiencies has determined that folate concentrations less than 4 ng/ml are considered deficient.PERFORMED BY:[address] [place], [place] [phone] MEDICAL MARY RUTHERFORD M.D. Performed By: #### F ER, [id number], URIC, PTH, FE and TIBC ####[place] [id number] [facility] [[email or web address]] Vitamin B12 ser/plasOrdered By: Amina Fagan on 10-26-2024 Cobalamin (Vitamin B12) [Mass/Vol] Vitamin B12 ser/plas 180-914 [facility] Vitamin D 25 Hydroxy Totalon 10-26-2024 Vitamin D 25 Hydroxy Total 17.0 ng/mL Low 30-100 [facility] Comment on above: Result Comment: SUBHA MIN D STATUS 25(OH)VITAMIN D RANGE (ng/mL) Deficient <20 Insufficient 20 to <30 Sufficient 30 to 100 Reference: Marisol MF,Ibrahima NC, Kasey LONG, et al. Evaluation,treatment, and prevention of vitamin D deficiency; an Endocrine Society clinical practice guideline. JCEM. 2010; 96(7):1911-30.PERFORMED BY:[address] [address] [address] [place], [place] [phone] MEDICAL MARY RUTHERFORD M.D. Performed By: #### L DLD, MG, URIC, TSH3, [id number], PSAS, LIPID ####[id number] [place] [id number] [facility] [[email or web address]] Vitamin D+Metabolites [Mass/ volume] in Serum or PlasmaOrdered By: Teresa Lynch on 10-26-2024 Vitamin D+Metabolites [Mass/Vol] Vitamin D+Metabolites [Mass/volume] in Serum or Plasma Low 30-100 [facility] Comment on above: VITAMIN D STATUS 25( [place])VITAMIN D RANGE (ng/mL) Deficient <20 Insufficient 20 to <30Sufficient 30 to 100Reference: Marisol MF,Ibrahima TIRADO, Kasey LONG, et al. Evaluation,treatment, and prevention of vitamin D deficiency; an Endocrine Society clinical practice guideline. JCEM. 2010; 96(7):1911-30. WBC Auto (Bld) [#/Vol]Ordere d By: Maurice Francis on 10-26-2024 WBC (Bld) [#/Vol] Leukocytes [#/volume ] in Blood by Automated count 4.1-10.5 [facility] pH Test strip (U)Ordered By: Amina Fagan on 10-26-2024 pH (U) pH of Urine by Test strip 5.0-9.0 [facility] Anisocytosis LM Ql (Bld)Orde red By: Abdullahi Canchola on 10-11-2024 Anisocytosis Ql (Bld) Anisocytosis [Pres ence] in Blood by Light microscopy [facility] Basic Metabolic Panelon Anion gap [Moles/Vol] 15.7 mmol/L High 6.0-15.0 [facility] Comment on above: Performed By: #### B MP, CK, HS TROP, FE and TIBC, LILA, MG, SCAN CBC ####[facility] [place] [address] [facility] [[email or web address]] Calcium [Mass/Vol] 8.9 mg/dL Normal 8.6-10.3 [facility] Comment on above: Performed By: #### B MP, CK, HS TROP, FE and TIBC, LILA, MG, SCAN CBC ####[id number] [place] [id number] [facility] [[email or web address]] Chloride [Moles/Vol] 99 mmol/L Normal 98-107 [facility] Comment on above: Performed By: #### B MP, CK, HS TROP, FE and TIBC, LILA, MG, SCAN CBC ####[address] CO2 [Moles/Vol] 25.5 mmol/L Normal 21.0-31.0 [facility] Comment on above: Performed By: #### B MP, CK, HS TROP, FE and TIBC, LILA, MG, SCAN CBC ####[address] Creatinine [Mass/Vol] 2.43 mg/dL High 0.70-1.30 [facility] Comment on above: Performed By: #### B MP, CK, HS TROP, FE and TIBC, LILA, MG, SCAN CBC ####[address] Creatinine Clr Calc Pharmacy 35.93 Normal [facility] Comment on above: Performed By: #### B MP, CK, HS TROP, FE and TIBC, LILA, MG, SCAN CBC ####[address] Estimated GFR 29.874 mL/Min Normal [facility] Comment on above: Performed By: #### B MP, CK, HS TROP, FE and TIBC, LILA, MG, SCAN CBC ####[address] Glucose [Mass/Vol] 221 mg/dL High 70-100 [facility] Comment on above: Result Comment: [place] Glucose Reference Range is dependent on time and content of last meal. Glucose of more than 200 mg/dL in a nonstressed, ambulatory subject supports the diagnosis of Diabetes Mellitus. ADA recommended reference range Performed By: #### B MP, CK, HS TROP, FE and TIBC, LILA, MG, SCAN CBC ####[address] Potassium [Moles/Vol] 4.2 mmol/L Normal 3.5-5.1 [facility] Comment on above: Performed By: #### B MP, CK, HS TROP, FE and TIBC, LILA, MG, SCAN CBC ####[facility] Sodium [Moles/Vol] 136 mmol/L Normal 136-145 [facility] Comment on above: Performed By: #### B MP, CK, HS TROP, FE and TIBC, LILA, MG, SCAN CBC ####[facility] Urea nitrogen [Mass/Vol] 39 mg/dL High 7-25 [facility] Comment on above: Performed By: #### B MP, CK, HS TROP, FE and TIBC, LILA, MG, SCAN CBC ####[facility] Basophils Auto (Bld) [#/Vol] Ordered By: Abdullahi Canchola on 10-11-2024 Basophils (Bld) [#/Vol] Automated basophil count 0.0-0.2 [facility] Basophils/100 WBC Auto (Bld) Ordered By: Abdullahi Canchola on 10-11-2024 Basophils/100 WBC (Bld) Automated basophil % . [facility] Calcium [Mass/volume] in Ser um or PlasmaOrdered By: Abdullahi Canchola on 10-11-2024 Calcium [Mass/Vol] Calcium [Mass/volume ] in Serum or Plasma 8.6-10.3 [facility] Carbon dioxide, total [Moles /volume] in Serum or PlasmaOrdered By: Abdullahi Canchola on 10-11-2024 CO2 [Moles/Vol] Carbon dioxide, tota l [Moles/volume] in Serum or Plasma 21.0-31.0 [facility] Chloride [Moles/volume] in S ilia or PlasmaOrdered By: Abdullahi Canchola on 10-11-2024 Chloride [Moles/Vol] Chloride [Moles/vol ume] in Serum or Plasma 98-107 [facility] Creatine Kinaseon 10-11-2024 CK [Catalytic activity/Vol] 91 U/L Normal 30-223 [facility] Comment on above: Performed By: #### B MP, CK, HS TROP, FE and TIBC, LILA, MG, SCAN CBC ####[facility] [id number] [place] [address] [facility] [[email or web address]] Creatine kinase [Enzymatic a ctivity/volume] in Serum or PlasmaOrdered By: Abdullahi Canchola on 10-11-2024 CK [Catalytic activity/Vol] Creatine kinase [Enzymatic activity/volume] in Serum or Plasma 30-223 [facility] Creatinine [Mass/volume] in Serum or PlasmaOrdered By: Abdullahi Canchola on 10-11-2024 Creatinine [Mass/Vol] Creatinine [Mass/v olume] in Serum or Plasma High 0.70-1.30 [facility] ECH echo transthoracicon ECH echo transthoracic Normal [facility] Eosinophils Auto (Bld) [#/Vo l]Ordered By: Abdullahi Canchola on 10-11-2024 Eosinophils (Bld) [#/Vol] Automated eosinophil count 0.0-0.45 [facility] Eosinophils/100 WBC Auto (Bl d)Ordered By: Abdullahi Canchola on 10-11-2024 Eosinophils/100 WBC (Bld) Automated eosinophil % . [facility] Erythrocyte distribution wid th Auto (RBC) [Ratio]Ordered By: Abdullahi Canchola on 10-11-2024 Erythrocyte distribution width (RBC) [Ratio] Erythrocyte distribution width [Ratio] by Automated count High 12.0-14.8 [facility] Erythrocyte morphology findi ng [Identifier] in BloodOrdered By: Abdullahi Canchola on 10-11-2024 RBC morphology finding Nom (Bld) RBC morphology [facility] Ferritinon 10-11-2024 Ferritin [Mass/Vol] 8.2 ng/mL Low 23.9-336.2 [facility] Comment on above: Result Comment: PERF ORMED BY:[place] [address] [place], [place] [phone] MEDICAL DIRECTORMIKE CABAN M.D. Performed By: #### B MP, CK, HS TROP, FE and TIBC, LILA, MG, SCAN CBC ####[facility] [place] [address] [facility] [[email or web address]] Ferritin [Mass/volume] in Se rum or PlasmaOrdered By: Abdullahi Canchola on 10-11-2024 Ferritin [Mass/Vol] Ferritin [Mass/volum e] in Serum or Plasma Low 23.9-336.2 [facility] Glucose Glucometer (BldC) [M ass/Vol]Ordered By: Abdullahi Canchola on 10-11-2024 Glucose [Mass/Vol] Capillary blood gluc ose measurement by glucometer (mass/volume) [facility] Comment on above: Random Glucose Refer ence Range is dependent on time and content of last meal. Glucose of more than 200 mg/dL in a nonstressed, ambulatory subject supports the diagnosis of Diabetes Mellitus. Glucose Poct Glucometerson 0 10-11-2024 Commemt1 Glu2: Cleaned Meter Normal [facility] Comment on above: Result Comment: PERF ORMED BY:[place] [address] [place], [place] [phone] MEDICAL DIRECTORMIKE CABAN M.D. Performed By: #### G LULS ####Point of Care testing, Glucose [Mass/Vol] 194 mg/dL Normal [facility] Comment on above: Result Comment: Coolin om Glucose Reference Range is dependent on time and content of last meal. Glucose of more than 200 mg/dL in a nonstressed, ambulatory subject supports the diagnosis of Diabetes Mellitus. Performed By: #### G LULS ####Point of Care testing, Commemt1 Glu2: Cleaned Meter Normal [facility] Comment on above: Result Comment: PERF ORMED BY:[place] [address] [place], [place] [phone] MEDICAL DIRECTORMIKE CABAN M.D. Performed By: #### G LULS ####Point of Care testing, Glucose [Mass/Vol] 229 mg/dL Normal [facility] Comment on above: Result Comment: Coolin om Glucose Reference Range is dependent on time and content of last meal. Glucose of more than 200 mg/dL in a nonstressed, ambulatory subject supports the diagnosis of Diabetes Mellitus. Performed By: #### G LULS ####Point of Care testing, Glucose [Mass/volume] in Ser um or PlasmaOrdered By: Abdullahi Canchola on 10-11-2024 Glucose [Mass/Vol] Glucose [Mass/volume ] in Serum or Plasma High 70-100 [facility] Comment on above: ADA recommended refe rence rangeRandom Glucose Reference Range is dependent on time and content of last meal. Glucose of more than 200 mg/dL in a nonstressed, ambulatory subject supports the diagnosis of Diabetes Mellitus. Hematocrit Auto (Bld) [Volum e fraction]Ordered By: Abdullahi Canchola on 10-11-2024 Hematocrit (Bld) [Volume fraction] Hematocrit [Volume Fraction] of Blood by Automated count 38.8-50.0 [facility] Hemoglobin [Mass/volume] in BloodOrdered By: Abdullahi Canchola on 10-11-2024 Hemoglobin (Bld) [Mass/Vol] Hemoglobin [Mass/volume] in Blood 13.0-17.0 [facility] Iron [Mass/volume] in Serum or PlasmaOrdered By: Abdullahi Canchola on 10-11-2024 Iron [Mass/Vol] Iron [Mass/volume] i n Serum or Plasma Low 50-212 [facility] Iron and TIBC Profileon % Iron Saturation 9.1 % Low 20-50 [facility] Comment on above: Performed By: #### B MP, CK, HS TROP, FE and TIBC, LILA, MG, SCAN CBC ####[facility] [id number] [place] [address] [facility] [[email or web address]] Iron [Mass/Vol] 37 ug/dL Low 50-212 [facility] Comment on above: Performed By: #### B MP, CK, HS TROP, FE and TIBC, LILA, MG, SCAN CBC ####[facility] [id number] [place] [address] [facility] [[email or web address]] Total Iron Binding Capacity 407 ug/dL Normal 255-450 [facility] Comment on above: Performed By: #### B MP, CK, HS TROP, FE and TIBC, LILA, MG, SCAN CBC ####[facility] [id number] [place] [address] [facility] [[email or web address]] Transferrin [Mass/Vol] 291 mg/dL Normal 203-362 [facility] Comment on above: Performed By: #### B MP, CK, HS TROP, FE and TIBC, LILA, MG, SCAN CBC ####[facility] [id number] Leukocytes [#/volume] correc jorge for nucleated erythrocytes in Blood by Automated counOrdered By: Abdullahi Canchola on 10-11-2024 WBC corrected for nucl RBC Auto (Bld) [#/Vol] Leukocytes [#/volume] corrected for nucleated erythrocytes in Blood by Automated coun 4.1-10.5 [facility] Lymphocytes Auto (Bld) [#/Vo l]Ordered By: Abdullahi Canchola on 10-11-2024 Lymphocytes (Bld) [#/Vol] Lymphocytes [#/volume] in Blood by Automated count 1.00-4.8 [facility] Lymphocytes/100 WBC Auto (Bl d)Ordered By: Abdullahi Canchola on 10-11-2024 Lymphocytes/100 WBC (Bld) Lymphocytes/100 leukocytes in Blood by Automated count . [facility] MCH Auto (RBC) [Entitic mass ]Ordered By: Abdullahi Canchola on 10-11-2024 MCH (RBC) [Entitic mass] MCH [Entitic mass] by Automated count Low 27.5-35.2 [facility] MCHC Auto (RBC) [Mass/Vol]Or dered By: Abdullahi Canchola on 10-11-2024 MCHC (RBC) [Mass/Vol] MCHC [Mass/volume] by Automated count 32.5-35.6 [facility] MCV Auto (RBC) [Entitic vol] Ordered By: Abdullahi Canchola on 10-11-2024 MCV (RBC) [Entitic vol] MCV [Entitic volume] by Automated count Low 83.5-101 [facility] Magnesiumon 10-11-2024 Magnesium [Mass/Vol] 1.8 mg/dL Low 1.9-2.7 [facility] Comment on above: Performed By: #### B MP, CK, HS TROP, FE and TIBC, LILA, MG, SCAN CBC ####[facility] [id number] Magnesium [Mass/volume] in S ilia or PlasmaOrdered By: Abdullahi Canchola on 10-11-2024 Magnesium [Mass/Vol] Magnesium [Mass/vol ume] in Serum or Plasma Low 1.9-2.7 [facility] Microcytes LM Ql (Bld)Ordere d By: Abdullahi Canchola on 10-11-2024 Microcytes Ql (Bld) Microcytes [Presence ] in Blood by Light microscopy [facility] Monocytes Auto (Bld) [#/Vol] Ordered By: Abdullahi Canchola on 10-11-2024 Monocytes (Bld) [#/Vol] Automated blood monocyte count High 0.0-0.8 [facility] Monocytes/100 WBC Auto (Bld) Ordered By: Abdullahi Canchola on 10-11-2024 Monocytes/100 WBC (Bld) Automated monocyte % . [facility] Neutrophils Auto (Bld) [#/Vo l]Ordered By: Abdullahi Canchola on 10-11-2024 Neutrophils (Bld) [#/Vol] Neutrophils [#/volume] in Blood by Automated count 1.8-7.7 [facility] Neutrophils/100 WBC Auto (Bl d)Ordered By: Abdullahi Canchola on 10-11-2024 Neutrophils/100 WBC (Bld) Automated neutrophil % . [facility] No Panel InformationOrdered By: Abdullahi Canchola on 10-11-2024 Bedside Glucose Comment Glu2: cleaned meter [facility] Glu2: cleaned meter [facility] Estimated GFR (CKD-EPI) 29.874 mL/Min [facility] Creatinine Clearance (Chem 35.93 [facility] 29.874 mL/Min [facility] 35.93 [facility] Nucleated erythrocytes [Pres ence] in Blood by Automated countOrdered By: Abdullahi Canchola on 10-11-2024 Nucleated RBC Auto Ql (Bld) Nucleated erythrocytes [Presence] in Blood by Automated count 0-0.5 [facility] Ovalocytes [Presence] in Blo od by Light microscopyOrdered By: Abdullahi Canchola on 10-11-2024 Ovalocytes LM Ql (Bld) Ovalocyte detection [facility] Platelet adequacy [Presence] in Blood by Light microscopyOrdered By: Abdullahi Canchola on 10-11-2024 Platelets LM Ql (Bld) Platelet adequacy [Presence] in Blood by Light microscopy Normal [facility] Platelet mean volume Auto (B ld) [Entitic vol]Ordered By: Abdullahi Canchola on 10-11-2024 Platelet mean volume (Bld) [Entitic vol] Platelet mean volume [Entitic volume] in Blood by Automated count 6.6-10.1 [facility] Platelet morphology finding [Identifier] in BloodOrdered By: Abdullahi Canchola on 10-11-2024 Platelet morphology finding Nom (Bld) Platelet morphology finding [Identifier] in Blood [facility] Platelets Auto (Bld) [#/Vol] Ordered By: Abdullahi Canchola on 10-11-2024 Platelets (Bld) [#/Vol] Platelets [#/volume] in Blood by Automated count 150-450 [facility] Platelets Large [Presence] i n Blood by Light microscopyOrdered By: Abdullahi Canchola on 10-11-2024 Platelets Large LM Ql (Bld) Platelets Large [Presence] in Blood by Light microscopy [facility] Poikilocytosis [Presence] in Blood by Light microscopyOrdered By: Abdullahi Canchola on 10-11-2024 Poikilocytosis LM Ql (Bld) Poikilocytosis [Presence] in Blood by Light microscopy [facility] Polychromasia [Presence] in Blood by Light microscopyOrdered By: Abdullahi Canchola on 10-11-2024 Polychromasia LM Ql (Bld) Polychromasia [Presence] in Blood by Light microscopy [facility] Potassium [Moles/volume] in Serum or PlasmaOrdered By: Abdullahi Canchola on 10-11-2024 Potassium [Moles/Vol] Potassium [Moles/v olume] in Serum or Plasma 3.5-5.1 [facility] RBC Auto (Bld) [#/Vol]Ordere d By: Abdullahi Cacnhola on 10-11-2024 RBC (Bld) [#/Vol] Erythrocytes [#/volu me] in Blood by Automated count 3.90-5.60 [facility] Scan and CBCon 10-11-2024 Anisocytosis Ql (Bld) Marked Normal [facility] Comment on above: Performed By: #### B MP, CK, HS TROP, FE and TIBC, LILA, MG, SCAN CBC ####[address] Basophils (Bld) [#/Vol] 0.1 10*3/uL Normal 0.0-0.2 [facility] Comment on above: Performed By: #### B MP, CK, HS TROP, FE and TIBC, LILA, MG, SCAN CBC ####[address] Basophils/100 WBC (Bld) 1.3 % Normal . [facility] Comment on above: Performed By: #### B MP, CK, HS TROP, FE and TIBC, LILA, MG, SCAN CBC ####[address] Eosinophils (Bld) [#/Vol] 0.3 10*3/uL Normal 0.0-0.45 [facility] Comment on above: Performed By: #### B MP, CK, HS TROP, FE and TIBC, LILA, MG, SCAN CBC ####[address] Eosinophils/100 WBC (Bld) 4.0 % Normal . [facility] Comment on above: Performed By: #### B MP, CK, HS TROP, FE and TIBC, LILA, MG, SCAN CBC ####[address] Erythrocyte distribution width (RBC) [Ratio] 23.3 % High 12.0-14.8 [facility] Comment on above: Performed By: #### B MP, CK, HS TROP, FE and TIBC, LILA, MG, SCAN CBC ####[address] Hematocrit (Bld) [Volume fraction] 38.9 % Normal 38.8-50.0 [facility] Comment on above: Performed By: #### B MP, CK, HS TROP, FE and TIBC, LILA, MG, SCAN CBC ####[address] Hemoglobin (Bld) [Mass/Vol] 13.1 g/dL Normal 13.0-17.0 [facility] Comment on above: Performed By: #### B MP, CK, HS TROP, FE and TIBC, LILA, MG, SCAN CBC ####[address] Large Platelets Slight Normal [facility] Comment on above: Result Comment: PERF ORMED BY:[address] [place], [place] [phone] MEDICAL DIRECTORMIKE CABAN M.D. Performed By: #### B MP, CK, HS TROP, FE and TIBC, LILA, MG, SCAN CBC ####[address] Lymphocytes (Bld) [#/Vol] 2.0 10*3/uL Normal 1.00-4.8 [facility] Comment on above: Performed By: #### B MP, CK, HS TROP, FE and TIBC, LILA, MG, SCAN CBC ####[address] Lymphocytes/100 WBC (Bld) 25.5 % Normal . [facility] Comment on above: Performed By: #### B MP, CK, HS TROP, FE and TIBC, LILA, MG, SCAN CBC ####[address] MCH (RBC) [Entitic mass] 25.7 pg Low 27.5-35.2 [facility] Comment on above: Performed By: #### B MP, CK, HS TROP, FE and TIBC, LILA, MG, SCAN CBC ####[address] MCV (RBC) [Entitic vol] 76.5 fL Low 83.5-101 [facility] Comment on above: Performed By: #### B MP, CK, HS TROP, FE and TIBC, LILA, MG, SCAN CBC ####[place] [address] [place] Mean Corpuscular HGB Conc 33.6 g/dL Normal 32.5-35.6 [facility] Comment on above: Performed By: #### B MP, CK, HS TROP, FE and TIBC, LILA, MG, SCAN CBC ####[address] Microcytosis Moderate Normal [facility] Comment on above: Performed By: #### B MP, CK, HS TROP, FE and TIBC, LILA, MG, SCAN CBC ####[address] Monocytes (Bld) [#/Vol] 0.9 10*3/uL High 0.0-0.8 [facility] Comment on above: Performed By: #### B MP, CK, HS TROP, FE and TIBC, LILA, MG, SCAN CBC ####[address] Monocytes/100 WBC (Bld) 10.9 % Normal . [facility] Comment on above: Performed By: #### B MP, CK, HS TROP, FE and TIBC, LILA, MG, SCAN CBC ####[address] Neutrophils (Bld) [#/Vol] 4.6 10*3/uL Normal 1.8-7.7 [facility] Comment on above: Performed By: #### B MP, CK, HS TROP, FE and TIBC, LILA, MG, SCAN CBC ####[address] Neutrophils/100 WBC (Bld) 58.3 % Normal . [facility] Comment on above: Performed By: #### B MP, CK, HS TROP, FE and TIBC, LILA, MG, SCAN CBC ####[address] NRBC% 0.1 /100{WBC} Normal 0-0.5 [facility] Comment on above: Performed By: #### B MP, CK, HS TROP, FE and TIBC, LILA, MG, SCAN CBC ####[address] Ovalocytes Slight Normal [facility] Comment on above: Performed By: #### B MP, CK, HS TROP, FE and TIBC, LILA, MG, SCAN CBC ####[address] Platelet Estimate Normal Normal Normal [facility] Comment on above: Performed By: #### B MP, CK, HS TROP, FE and TIBC, LILA, MG, SCAN CBC ####[address] Platelet mean volume (Bld) [Entitic vol] 9.5 fL Normal 6.6-10.1 [facility] Comment on above: Performed By: #### B MP, CK, HS TROP, FE and TIBC, LILA, MG, SCAN CBC ####[address] Platelets (Bld) [#/Vol] 176 10*3/uL Normal 150-450 [facility] Comment on above: Performed By: #### B MP, CK, HS TROP, FE and TIBC, LILA, MG, SCAN CBC ####[address] Poikilocytosis Slight Normal [facility] Comment on above: Performed By: #### B MP, CK, HS TROP, FE and TIBC, LILA, MG, SCAN CBC ####[address] Polychromasia Slight Normal [facility] Comment on above: Performed By: #### B MP, CK, HS TROP, FE and TIBC, LILA, MG, SCAN CBC ####[address] RBC (Bld) [#/Vol] 5.09 10*6/uL Normal 3.90-5.60 [facility] Comment on above: Performed By: #### B MP, CK, HS TROP, FE and TIBC, LILA, MG, SCAN CBC ####[facility] [id number] [place] [address] [facility] [[email or web address]] WBC (Bld) [#/Vol] 7.9 10*3/uL Normal 4.1-10.5 [facility] Comment on above: Performed By: #### B MP, CK, HS TROP, FE and TIBC, LILA, MG, SCAN CBC ####[facility] [id number] [place] [address] [facility] [[email or web address]] Serum or plasma anion gap de terminationOrdered By: Abdullahi Canchola on 10-11-2024 Anion gap [Moles/Vol] Serum or plasma an ion gap determination High 6.0-15.0 [facility] Serum or plasma iron binding capacity measurement (mass/volume)Ordered By: Abdullahi Canchola on 10-11-2024 Iron binding capacity [Mass/Vol] Iron binding capacity [Mass/volume] in Serum or Plasma 255-450 [facility] Serum or plasma iron saturat ion measurement (mass fraction)Ordered By: Abdullahi Canchola on 10-11-2024 Iron saturation [Mass fraction] Iron saturation [Mass Fraction] in Serum or Plasma Low 20-50 [facility] Sodium [Moles/volume] in Ser um or PlasmaOrdered By: Abdullahi Canchola on 10-11-2024 Sodium [Moles/Vol] Sodium [Moles/volume ] in Serum or Plasma 136-145 [facility] Transferrin [Mass/volume] in Serum or PlasmaOrdered By: Abdullahi Canchola on 10-11-2024 Transferrin [Mass/Vol] Transferrin [Mass /volume] in Serum or Plasma 203-362 [facility] Troponin I High Sensitivityo n 10-11-2024 Troponin I High Sensitivity 5 Normal 0-20 [facility] Comment on above: Result Comment: The Troponin units of report have been changed to meet the Chest Pain Accreditation requirement, element EC5.M1l2. Troponin units are changed from pg/ml to ng/L. Also, the decimal is removed and results are in whole numbers.PERFORMED BY:[facility] [place], [place] [phone] MEDICAL DIRECTORMIKE CABAN M.D. Performed By: #### B MP, CK, HS TROP, FE and TIBC, LILA, MG, SCAN CBC ####[facility] [place] [address] [facility] [[email or web address]] Troponin I.cardiac [Mass/vol ume] in Serum or Plasma by Detection limit <= 0.01 ng/Ordered By: Abdullahi Canchola on 10-11-2024 Troponin I.cardiac DL <= 0.01 ng/mL [Mass/Vol] Troponin I.cardiac [Mass/volume] in Serum or Plasma by Detection limit <= 0.01 ng/ 0-20 [facility] Comment on above: The Troponin units [...] [Mass/volume] in Serum or Plasma High 7-25 [facility] WBC Auto (Bld) [#/Vol]Ordere d By: Abdullahi Canchola on 10-11-2024 WBC (Bld) [#/Vol] Leukocytes [#/volume ] in Blood by Automated count 4.1-10.5 [facility] Anisocytosis LM Ql (Bld)Orde red By: Jez Dominguez on 10-10-2024 Anisocytosis Ql (Bld) Anisocytosis [Pres ence] in Blood by Light microscopy [facility] B-Type Natriuretic Peptideon 10-10-2024 Natriuretic peptide B (Bld) [Mass/Vol] 17.0 pg/mL Normal 5-100 [facility] Comment on above: Result Comment: PERF ORMED BY:[place] [id number] [place], [place] [phone] MEDICAL DIRECTORMIKE CABAN M.D. Performed By: #### H S TROP, BNP, PT, BMP, SCAN CBC, CK ####[facility] [place] [address] [facility] [[email or web address]] Basic Metabolic Panelon Anion gap [Moles/Vol] 15.5 mmol/L High 6.0-15.0 [facility] Comment on above: Performed By: #### H S TROP, BNP, PT, BMP, SCAN CBC, CK ####[address] Calcium [Mass/Vol] 9.7 mg/dL Normal 8.6-10.3 [facility] Comment on above: Performed By: #### H S TROP, BNP, PT, BMP, SCAN CBC, CK ####[address] Chloride [Moles/Vol] 98 mmol/L Normal 98-107 [facility] Comment on above: Performed By: #### H S TROP, BNP, PT, BMP, SCAN CBC, CK ####[address] CO2 [Moles/Vol] 25.6 mmol/L Normal 21.0-31.0 [facility] Comment on above: Performed By: #### H S TROP, BNP, PT, BMP, SCAN CBC, CK ####[address] Creatinine [Mass/Vol] 2.51 mg/dL High 0.70-1.30 [facility] Comment on above: Performed By: #### H S TROP, BNP, PT, BMP, SCAN CBC, CK ####[address] Creatinine Clr Calc Pharmacy 34.78 Normal [facility] Comment on above: Result Comment: PERF ORMED BY:[address] [place], [place] [phone] MEDICAL DIRECTORMIKE CABAN M.D. Performed By: #### H S TROP, BNP, PT, BMP, SCAN CBC, CK ####[place] [id number] [facility] [[email or web address]] Estimated GFR 28.735 mL/Min Normal [facility] Comment on above: Performed By: #### H S TROP, BNP, PT, BMP, SCAN CBC, CK ####[place] [id number] [place] [id number] [facility] [[email or web address]] Glucose [Mass/Vol] 278 mg/dL High 70-100 [facility] Comment on above: Result Comment: Coolin Glucose Reference Range is dependent on time and content of last meal. Glucose of more than 200 mg/dL in a nonstressed, ambulatory subject supports the diagnosis of Diabetes Mellitus. ADA recommended reference range Performed By: #### H S TROP, BNP, PT, BMP, SCAN CBC, CK ####[place] [id number] [place] [id number] [facility] [[email or web address]] Potassium [Moles/Vol] 4.1 mmol/L Normal 3.5-5.1 [facility] Comment on above: Performed By: #### H S TROP, BNP, PT, BMP, SCAN CBC, CK ####[place] [id number] Sodium [Moles/Vol] 135 mmol/L Low 136-145 [facility] Comment on above: Performed By: #### H S TROP, BNP, PT, BMP, SCAN CBC, CK ####[place] [id number] [facility] [[email or web address]] Urea nitrogen [Mass/Vol] 41 mg/dL High 7-25 [facility] Comment on above: Performed By: #### H S TROP, BNP, PT, BMP, SCAN CBC, CK ####[address] Basophils Auto (Bld) [#/Vol] Ordered By: Jez Dominguez on 10-10-2024 Basophils (Bld) [#/Vol] Automated basophil count 0.0-0.2 [facility] Basophils/100 WBC Auto (Bld) Ordered By: Jez Dominguez on 10-10-2024 Basophils/100 WBC (Bld) Automated basophil % . [facility] Calcium [Mass/volume] in Ser um or PlasmaOrdered By: Jez Dominguez on 10-10-2024 Calcium [Mass/Vol] Calcium [Mass/volume ] in Serum or Plasma 8.6-10.3 [facility] Carbon dioxide, total [Moles /volume] in Serum or PlasmaOrdered By: Jez Dominguez on 10-10-2024 CO2 [Moles/Vol] Carbon dioxide, tota l [Moles/volume] in Serum or Plasma 21.0-31.0 [facility] Chloride [Moles/volume] in S ilia or PlasmaOrdered By: Jez Dominguez on 10-10-2024 Chloride [Moles/Vol] Chloride [Moles/vol ume] in Serum or Plasma 98-107 [facility] Creatine Kinaseon 10-10-2024 CK [Catalytic activity/Vol] 101 U/L Normal 30-223 [facility] Comment on above: Performed By: #### H S TROP, CK ####[place] [id number] CK [Catalytic activity/Vol] 126 U/L Normal 30-223 [facility] Comment on above: Performed By: #### H S TROP, BNP, PT, BMP, SCAN CBC, CK ####[facility] [id number] Creatine kinase [Enzymatic a ctivity/volume] in Serum or PlasmaOrdered By: Jez Dominguez on 10-10-2024 CK [Catalytic activity/Vol] Creatine kinase [Enzymatic activity/volume] in Serum or Plasma 30-223 [facility] Creatinine [Mass/volume] in Serum or PlasmaOrdered By: Jez Dominguez on 10-10-2024 Creatinine [Mass/Vol] Creatinine [Mass/v olume] in Serum or Plasma High 0.70-1.30 [facility] ECG 12 lead ECGon 10-10-2024 ECG 12 lead ECG Normal [facility] ECG 12 lead ECG Normal [facility] ECG 12 lead ECG Normal [facility] Eosinophils Auto (Bld) [#/Vo l]Ordered By: Jez Dominguez on 10-10-2024 Eosinophils (Bld) [#/Vol] Automated eosinophil count 0.0-0.45 [facility] Eosinophils/100 WBC Auto (Bl d)Ordered By: Jez Dominguez on 10-10-2024 Eosinophils/100 WBC (Bld) Automated eosinophil % . [facility] Erythrocyte distribution wid th Auto (RBC) [Ratio]Ordered By: Jez Dominguez on 10-10-2024 Erythrocyte distribution width (RBC) [Ratio] Erythrocyte distribution width [Ratio] by Automated count High 12.0-14.8 [facility] Erythrocyte morphology findi ng [Identifier] in BloodOrdered By: Jez Dominguez on 10-10-2024 RBC morphology finding Nom (Bld) RBC morphology [facility] Glucose Poct Glucometerson 0 10-10-2024 Glucose [Mass/Vol] 204 mg/dL Normal [facility] Comment on above: Result Comment: [place] Glucose Reference Range is dependent on time and content of last meal. Glucose of more than 200 mg/dL in a nonstressed, ambulatory subject supports the diagnosis of Diabetes Mellitus.PERFORMED BY:[place] [id number] [place], [place] [phone] MEDICAL DIRECTORMIKE CABAN M.D. Performed By: #### G NELI ####Point of Care testing, Glucose [Mass/volume] in Ser um or PlasmaOrdered By: Jez Dominguez on 10-10-2024 Glucose [Mass/Vol] Glucose [Mass/volume ] in Serum or Plasma High 70-100 [facility] Comment on above: ADA recommended refe rence rangeRandom Glucose Reference Range is dependent on time and content of last meal. Glucose of more than 200 mg/dL in a nonstressed, ambulatory subject supports the diagnosis of Diabetes Mellitus. Hematocrit Auto (Bld) [Volum e fraction]Ordered By: Jez Dominguez on 10-10-2024 Hematocrit (Bld) [Volume fraction] Hematocrit [Volume Fraction] of Blood by Automated count 38.8-50.0 [facility] Hemoglobin [Mass/volume] in BloodOrdered By: Jez Dominguez on 10-10-2024 Hemoglobin (Bld) [Mass/Vol] Hemoglobin [Mass/volume] in Blood 13.0-17.0 [facility] INR in Platelet poor plasma by Coagulation assayOrdered By: Jez Dominguez on 10-10-2024 INR Coag (PPP) [Relative time] INR in Platelet poor plasma by Coagulation assay [facility] Comment on above: INR Therapeutic Rang [...] erythrocytes in Blood by Automated coun 4.1-10.5 [facility] Lymphocytes Auto (Bld) [#/Vo l]Ordered By: Jez Dominguez on 10-10-2024 Lymphocytes (Bld) [#/Vol] Lymphocytes [#/volume] in Blood by Automated count 1.00-4.8 [facility] Lymphocytes/100 WBC Auto (Bl d)Ordered By: Jez Dominguez on 10-10-2024 Lymphocytes/100 WBC (Bld) Lymphocytes/100 leukocytes in Blood by Automated count . [facility] MCH Auto (RBC) [Entitic mass ]Ordered By: Jez Dominguez on 10-10-2024 MCH (RBC) [Entitic mass] MCH [Entitic mass] by Automated count Low 27.5-35.2 [facility] MCHC Auto (RBC) [Mass/Vol]Or dered By: Jez Dominguez on 10-10-2024 MCHC (RBC) [Mass/Vol] MCHC [Mass/volume] by Automated count 32.5-35.6 [facility] MCV Auto (RBC) [Entitic vol] Ordered By: Jez Dominguez on 10-10-2024 MCV (RBC) [Entitic vol] MCV [Entitic volume] by Automated count Low 83.5-101 [facility] Microcytes LM Ql (Bld)Ordere d By: Jez Dominguez on 10-10-2024 Microcytes Ql (Bld) Microcytes [Presence ] in Blood by Light microscopy [facility] Monocyte distribution width [Entitic volume] in Blood by AutomatedOrdered By: Jez Dominguez on 10-10-2024 Monocyte distribution width Auto (Bld) [Entitic vol] Monocyte distribution width [Entitic volume] in Blood by Automated 0.00-20.00 [facility] Monocytes Auto (Bld) [#/Vol] Ordered By: Jez Dominguez on 10-10-2024 Monocytes (Bld) [#/Vol] Automated blood monocyte count 0.0-0.8 [facility] Monocytes/100 WBC Auto (Bld) Ordered By: Jez Dominguez on 10-10-2024 Monocytes/100 WBC (Bld) Automated monocyte % . [facility] Natriuretic peptide B [Mass/ Vol]Ordered By: Jez Dominguez on 10-10-2024 Natriuretic peptide B (Bld) [Mass/Vol] BNP ser/plas 5-100 [facility] Neutrophils Auto (Bld) [#/Vo l]Ordered By: Jez Dominguez on 10-10-2024 Neutrophils (Bld) [#/Vol] Neutrophils [#/volume] in Blood by Automated count 1.8-7.7 [facility] Neutrophils/100 WBC Auto (Bl d)Ordered By: Jez Dominguez on 10-10-2024 Neutrophils/100 WBC (Bld) Automated neutrophil % . [facility] No Panel InformationOrdered By: Jez Dominguez on 10-10-2024 Estimated GFR (CKD-EPI) 28.735 mL/Min [facility] Creatinine Clearance (Chem 34.78 [facility] Nucleated erythrocytes [Pres ence] in Blood by Automated countOrdered By: Jez Dominguez on 10-10-2024 Nucleated RBC Auto Ql (Bld) Nucleated erythrocytes [Presence] in Blood by Automated count 0-0.5 [facility] Platelet adequacy [Presence] in Blood by Light microscopyOrdered By: Jez Dominguez on 10-10-2024 Platelets LM Ql (Bld) Platelet adequacy [Presence] in Blood by Light microscopy Normal [facility] Platelet mean volume Auto (B ld) [Entitic vol]Ordered By: Jez Dominguez on 10-10-2024 Platelet mean volume (Bld) [Entitic vol] Platelet mean volume [Entitic volume] in Blood by Automated count 6.6-10.1 [facility] Platelet morphology finding [Identifier] in BloodOrdered By: Jez Dominguez on 10-10-2024 Platelet morphology finding Nom (Bld) Platelet morphology finding [Identifier] in Blood Normal [facility] Platelets Auto (Bld) [#/Vol] Ordered By: Jez Dominguez on 10-10-2024 Platelets (Bld) [#/Vol] Platelets [#/volume] in Blood by Automated count 150-450 [facility] Poikilocytosis [Presence] in Blood by Light microscopyOrdered By: Jez Dominguez on 10-10-2024 Poikilocytosis LM Ql (Bld) Poikilocytosis [Presence] in Blood by Light microscopy [facility] Polychromasia [Presence] in Blood by Light microscopyOrdered By: Jez Dominguez on 10-10-2024 Polychromasia LM Ql (Bld) Polychromasia [Presence] in Blood by Light microscopy [facility] Potassium [Moles/volume] in Serum or PlasmaOrdered By: Jez Dominguez on 10-10-2024 Potassium [Moles/Vol] Potassium [Moles/v olume] in Serum or Plasma 3.5-5.1 [facility] Prothrombin Time INRon 10-10 INR Coag (PPP) [Relative time] 1.0 {INR} Normal [facility] Comment on above: Result [...] with mechanical heart valves: 3 - 4.5PERFORMED BY:[facility] [place], [place] [phone] MEDICAL DIRECTORMIKE CABAN M.D. Performed By: #### H S TROP, BNP, PT, BMP, SCAN CBC, CK ####[facility] [place] [address] [facility] [[email or web address]] PT Coag (PPP) [Time] 11.4 s Normal 9.0-12.9 [facility] Comment on above: Result Comment: A he matocrit value greater than 55% may lead to inaccurate results in coagulation testing. Patients having hematocrit values >55% require a special collection tube for coagulation studies. Please contact the laboratory at [phone] for redraw instructions. Performed By: #### H S TROP, BNP, PT, BMP, SCAN CBC, CK ####[address] Prothrombin time (PT)Ordered By: Jez Dominguez on 10-10-2024 PT Coag (PPP) [Time] Prothrombin time (PT) 9.0- 12.9 [facility] Comment on above: A hematocrit value g reater than 55% may lead to inaccurate results in coagulation testing. Patients having hematocrit values >55% require a special collection tube for coagulation studies. Please contact the laboratory at [phone] for redraw instructions. RBC Auto (Bld) [#/Vol]Ordere d By: Jez Dominguez on 10-10-2024 RBC (Bld) [#/Vol] Erythrocytes [#/volu me] in Blood by Automated count High 3.90-5.60 [facility] Scan and CBCon 10-10-2024 Anisocytosis Ql (Bld) Marked Normal [facility] Comment on above: Performed By: #### H S TROP, BNP, PT, BMP, SCAN CBC, CK ####[address] Basophils (Bld) [#/Vol] 0.1 10*3/uL Normal 0.0-0.2 [facility] Comment on above: Performed By: #### H S TROP, BNP, PT, BMP, SCAN CBC, CK ####[address] Basophils/100 WBC (Bld) 1.3 % Normal . [facility] Comment on above: Performed By: #### H S TROP, BNP, PT, BMP, SCAN CBC, CK ####[address] Eosinophils (Bld) [#/Vol] 0.3 10*3/uL Normal 0.0-0.45 [facility] Comment on above: Performed By: #### H S TROP, BNP, PT, BMP, SCAN CBC, CK ####[address] Eosinophils/100 WBC (Bld) 4.0 % Normal . [facility] Comment on above: Performed By: #### H S TROP, BNP, PT, BMP, SCAN CBC, CK ####[address] Erythrocyte distribution width (RBC) [Ratio] 23.4 % High 12.0-14.8 [facility] Comment on above: Performed By: #### H S TROP, BNP, PT, BMP, SCAN CBC, CK ####[address] Hematocrit (Bld) [Volume fraction] 42.4 % Normal 38.8-50.0 [facility] Comment on above: Performed By: #### H S TROP, BNP, PT, BMP, SCAN CBC, CK ####[address] Hemoglobin (Bld) [Mass/Vol] 14.4 g/dL Normal 13.0-17.0 [facility] Comment on above: Performed By: #### H S TROP, BNP, PT, BMP, SCAN CBC, CK ####[address] Lymphocytes (Bld) [#/Vol] 2.0 10*3/uL Normal 1.00-4.8 [facility] Comment on above: Performed By: #### H S TROP, BNP, PT, BMP, SCAN CBC, CK ####[address] Lymphocytes/100 WBC (Bld) 23.4 % Normal . [facility] Comment on above: Performed By: #### H S TROP, BNP, PT, BMP, SCAN CBC, CK ####[address] MCH (RBC) [Entitic mass] 25.6 pg Low 27.5-35.2 [facility] Comment on above: Performed By: #### H S TROP, BNP, PT, BMP, SCAN CBC, CK ####[address] MCV (RBC) [Entitic vol] 75.5 fL Low 83.5-101 [facility] Comment on above: Performed By: #### H S TROP, BNP, PT, BMP, SCAN CBC, CK ####[address] Mean Corpuscular HGB Conc 33.9 g/dL Normal 32.5-35.6 [facility] Comment on above: Performed By: #### H S TROP, BNP, PT, BMP, SCAN CBC, CK ####[address] Microcytosis Marked Normal [facility] Comment on above: Performed By: #### H S TROP, BNP, PT, BMP, SCAN CBC, CK ####[address] Monocytes (Bld) [#/Vol] 0.8 10*3/uL Normal 0.0-0.8 [facility] Comment on above: Performed By: #### H S TROP, BNP, PT, BMP, SCAN CBC, CK ####[address] Monocytes/100 WBC (Bld) 16.66 % Normal 0.00-20.00 [facility] Comment on above: Performed By: #### H S TROP, BNP, PT, BMP, SCAN CBC, CK ####[address] Monocytes/100 WBC (Bld) 9.5 % Normal . [facility] Comment on above: Performed By: #### H S TROP, BNP, PT, BMP, SCAN CBC, CK ####[address] Neutrophils (Bld) [#/Vol] 5.3 10*3/uL Normal 1.8-7.7 [facility] Comment on above: Performed By: #### H S TROP, BNP, PT, BMP, SCAN CBC, CK ####[address] [address] [facility] [[email or web address]] Neutrophils/100 WBC (Bld) 61.8 % Normal . [facility] Comment on above: Performed By: #### H S TROP, BNP, PT, BMP, SCAN CBC, CK ####[address] [address] [facility] [[email or web address]] NRBC% 0.2 /100{WBC} Normal 0-0.5 [facility] Comment on above: Performed By: #### H S TROP, BNP, PT, BMP, SCAN CBC, CK ####[address] [address] [facility] [[email or web address]] Platelet Estimate Normal Normal Normal [facility] Comment on above: Performed By: #### H S TROP, BNP, PT, BMP, SCAN CBC, CK ####[address] [address] [facility] [[email or web address]] Platelet mean volume (Bld) [Entitic vol] 9.8 fL Normal 6.6-10.1 [facility] Comment on above: Performed By: #### H S TROP, BNP, PT, BMP, SCAN CBC, CK ####[address] [address] [facility] [[email or web address]] Platelet Morphology Normal Normal Normal [facility] Comment on above: Result Comment: PERF ORMED BY:[address] [place], [place] [phone] MEDICAL DIRECTORMIKE CABAN M.D. Performed By: #### H S TROP, BNP, PT, BMP, SCAN CBC, CK ####[address] [address] [facility] [[email or web address]] Platelets (Bld) [#/Vol] 203 10*3/uL Normal 150-450 [facility] Comment on above: Performed By: #### H S TROP, BNP, PT, BMP, SCAN CBC, CK ####[address] [address] [facility] [[email or web address]] Poikilocytosis Slight Normal [facility] Comment on above: Performed By: #### H S TROP, BNP, PT, BMP, SCAN CBC, CK ####[place] [id number] [facility] [[email or web address]] Polychromasia Slight Normal [facility] Comment on above: Performed By: #### H S TROP, BNP, PT, BMP, SCAN CBC, CK ####[place] [id number] [place] [id number] [facility] [[email or web address]] RBC (Bld) [#/Vol] 5.62 10*6/uL High 3.90-5.60 [facility] Comment on above: Performed By: #### H S TROP, BNP, PT, BMP, SCAN CBC, CK ####[address] WBC (Bld) [#/Vol] 8.7 10*3/uL Normal 4.1-10.5 [facility] Comment on above: Performed By: #### H S TROP, BNP, PT, BMP, SCAN CBC, CK ####[address] Serum or plasma anion gap de terminationOrdered By: Jez Dominguez on 10-10-2024 Anion gap [Moles/Vol] Serum or plasma an ion gap determination High 6.0-15.0 [facility] Sodium [Moles/volume] in Ser um or PlasmaOrdered By: Jez Dominguez on 10-10-2024 Sodium [Moles/Vol] Sodium [Moles/volume ] in Serum or Plasma Low 136-145 [facility] Troponin I High Sensitivityo n 10-10-2024 Troponin I High Sensitivity 6 Normal 0-20 [facility] Comment on above: Result Comment: The Troponin units of report have been changed to meet the Chest Pain Accreditation requirement, element EC5.M1l2. Troponin units are changed from pg/ml to ng/L. Also, the decimal is removed and results are in whole numbers.PERFORMED BY:[address] [place], [place] [phone] MEDICAL DIRECTORMIKE CABAN M.D. Performed By: #### H S TROP, CK ####[address] [address] [facility] [[email or web address]] Troponin I High Sensitivity 6 Normal 0-20 [facility] Comment on above: Order Comment: Result Comment: The Troponin units of report have been changed to meet the Chest Pain Accreditation requirement, element EC5.M1l2. Troponin units are changed from pg/ml to ng/L. Also, the decimal is removed and results are in whole numbers.PERFORMED BY:[address] [place], [place] [id number] MEDICAL DIRECTORMIKE CABAN M.D. Performed By: #### H S TROP ####[address] [address] [facility] [[email or web address]] Troponin I High Sensitivity 6 Normal 0-20 [facility] Comment on above: Result Comment: The Troponin units of report have been changed to meet the Chest Pain Accreditation requirement, element EC5.M1l2. Troponin units are changed from pg/ml to ng/L. Also, the decimal is removed and results are in whole numbers.PERFORMED BY:[address] [place], [place] [phone] MEDICAL DIRECTORMIKE CABAN M.D. Performed By: #### H S TROP, BNP, PT, BMP, SCAN CBC, CK ####[address] [address] [facility] [[email or web address]] Troponin I.cardiac [Mass/vol ume] in Serum or Plasma by Detection limit <= 0.01 ng/Ordered By: Jez Dominguez on 10-10-2024 Troponin I.cardiac DL <= 0.01 ng/mL [Mass/Vol] Troponin I.cardiac [Mass/volume] in Serum or Plasma by Detection limit <= 0.01 ng/ 0-20 [facility] Comment on above: The Troponin units [...] [Mass/volume] in Serum or Plasma High 7-25 [facility] WBC Auto (Bld) [#/Vol]Ordere d By: Jez Dominguez on 10-10-2024 WBC (Bld) [#/Vol] Leukocytes [#/volume ] in Blood by Automated count 4.1-10.5 [facility] X-ray reportOrdered By: Олег Oscar on 10-10-2024 Study report [facility] [place] [place] [address] XRay Report Signed Patient: Myra Pickard SR MR#: [id number] : 1965 Acct:[id number] Age/Sex: 59 / M ADM Date: 5 [...] Oscar M.D. 10/10/2024 3:12 PM Dictation Location: [place] [address] Transcribed By: [facility] 10/10/24 1512 Dictated By: Олег Oscar II, MD 10/10/24 1509 Signed By: 10/10/24 1512 [facility] Work Phone: XR chest 2V*on 10-10-2024 XR chest 2V* Normal [facility] Ambulatory Visit Summaryon 0 09-27-2024 Ambulatory Visit Summary Ambulatory Visit Summary MATTEO CHRISTIANMYRA :1965 Visit Date:09/27/2024 Ambulatory Visit Instructions Your [...] Yeyo ROWE MD Where: [facility] [address] [place] [address] [place] [address]- You Need to Schedule the Following Appointments Follow Up with Yeyo ROWE MD, URL When: Where: [address] [place] [address]- Medications What How Much When Instructions Unchanged tamsulosin (tamsulosin 0.4 mg Cap) 1 Capsules By Mouth 2 times a day Pickup at [facility]/pharmacy #[id number] Unchanged albuterol (ProAir HFA) Inhalation Every 6 [...] day Cont (more content not included)... Normal [facility] Ambulatory Visit Summary Ambulatory Visit Summary [...] Appointments Monday. 2024 8:20 AM EDT With: RASHI KURTZ, MARYBEL Colmenares Where: [facility] [address] [place] [address]- You Need to Schedule the Following Appointments Follow Up with SOLEDAD HERRERA, Yeyo Blum, URL When: Where: [address] [place] [address]- Medications What How Much When Instructions Unchanged [...] physician if (more content not included)... Normal [facility] Urology Office/Clinic Noteon 09-27-2024 Urology Office/Clinic [...] weeks in November 2022. Pt presented to [facility] ER 07/24/24 with sudden onset scrotal/groin pain. [...] 5. Antiplatelet or antithrombotic long-term use (Z79.02: skilled nursing (current) use of antithrombotics/antiplate lets) On Plavix. Hx of MS. Elevated risk for periop complications in the future. Follow-up With When Contact Information SOLEDAD HERRERA, Yeyo Blum, URL [facility] [place] [address]- Additional Instructions: 4 mos w/ PVR Patient Education Acute Urinary Retention, Male I, Mattie Foster, personally scribed for Dr. Rowe on 09/27/2024 11:59:07. . Documentation recorded by the scribMattie colmenares, accurately reflects the services(s) I performed and decisions made by me. Authenticated by Dr. Rowe on 09/27/2024 12:02:59. 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 Normal [facility] Comment on above: Result Comment: Elec tronically Signed By: Yeyo ROWE MD\.br\Date and Time Signed: 09/27/24 12:03 EDT\.br\Electronically Co-Signed By: Mattie Foster.nile\Date and Time Co-Signed: 09/27/24 12:00 EDT HbA1c HPLC (Bld) [Mass fract ion]on 08-30-2024 HbA1c (Bld) [Mass fraction] Hemoglobin A1c/Hemoglobin.total in Blood by HPLC [facility] Alanine aminotransferase [En zymatic activity/volume] in Serum or PlasmaOrdered By: Objosedarashad Haydenomar on 08-13-2024 ALT [Catalytic activity/Vol] Alanine aminotransferase [Enzymatic activity/volume] in Serum or Plasma 7-52 [facility] Albumin [Mass/volume] in Ser um or Plasma by Bromocresol green (BCG) dye binding methoOrdered By: Obaydah Daromar on 08-13-2024 Albumin BCG dye [Mass/Vol] Albumin [Mass/volume] in Serum or Plasma by Bromocresol green (BCG) dye binding metho Low 3.5-5.7 [facility] Alkaline phosphatase [Enzyma tic activity/volume] in Serum or PlasmaOrdered By: Obaydah Daromar on 08-13-2024 ALP [Catalytic activity/Vol] Alkaline phosphatase [Enzymatic activity/volume] in Serum or Plasma 34-104 [facility] Aspartate aminotransferase [ Enzymatic activity/volume] in Serum or PlasmaOrdered By: Obaydah Daromar on 08-13-2024 AST [Catalytic activity/Vol] Aspartate aminotransferase [Enzymatic activity/volume] in Serum or Plasma Low 13-39 [facility] Bilirubin.total [Mass/volume ] in Serum or PlasmaOrdered By: Obaydah Daromar on 08-13-2024 Bilirubin [Mass/Vol] Bilirubin.total [Mass/volume] in Serum or Plasma 0.3-1.0 [facility] Calcium [Mass/volume] in Ser um or PlasmaOrdered By: Obaydah Daromar on 08-13-2024 Calcium [Mass/Vol] Calcium [Mass/volume ] in Serum or Plasma Low 8.6-10.3 [facility] Carbon dioxide, total [Moles /volume] in Serum or PlasmaOrdered By: Kevon Haydenomar on 08-13-2024 CO2 [Moles/Vol] Carbon dioxide, tota l [Moles/volume] in Serum or Plasma 21.0-31.0 [facility] Chloride [Moles/volume] in S ilia or PlasmaOrdered By: Obshelly Haydenomar on 08-13-2024 Chloride [Moles/Vol] Chloride [Moles/vol ume] in Serum or Plasma High 98-107 [facility] Comprehensive Metabolic Pane guy 08-13-2024 Albumin [Mass/Vol] 3.4 g/dL Low 3.5-5.7 [facility] Comment on above: Performed By: #### C DANA, CMP ####[address] Albumin/Globulin [Mass ratio] 1.4 {ratio} Normal [facility] Comment on above: Performed By: #### C DANA, CMP ####[place] [id number] [facility] [[email or web address]] ALP [Catalytic activity/Vol] 93 U/L Normal 34-104 [facility] Comment on above: Performed By: #### C DANA, CMP ####[place] [id number] [facility] [[email or web address]] ALT [Catalytic activity/Vol] 9 U/L Normal 7-52 [facility] Comment on above: Performed By: #### C DANA, CMP ####[place] [id number] [facility] [[email or web address]] Anion gap [Moles/Vol] 10.7 mmol/L Normal 6.0-15.0 [facility] Comment on above: Performed By: #### C DANA, CMP ####[place] [id number] [facility] [[email or web address]] AST [Catalytic activity/Vol] 12 U/L Low 13-39 [facility] Comment on above: Performed By: #### C DANA, CMP ####[place] [id number] [facility] [[email or web address]] Bilirubin [Mass/Vol] 0.3 mg/dL Normal 0.3-1.0 [facility] Comment on above: Performed By: #### C DANA, CMP ####[address] Calcium [Mass/Vol] 7.5 mg/dL Low 8.6-10.3 [facility] Comment on above: Performed By: #### C DANA, CMP ####[address] [address] Chloride [Moles/Vol] 111 mmol/L High 98-107 [facility] Comment on above: Performed By: #### C DANA, CMP ####[address] CO2 [Moles/Vol] 21.5 mmol/L Normal 21.0-31.0 [facility] Comment on above: Performed By: #### C DANA, CMP ####[address] Creatinine [Mass/Vol] 1.59 mg/dL High 0.70-1.30 [facility] Comment on above: Performed By: #### C DANA, CMP ####[address] Creatinine Clr Calc Pharmacy 54.91 Normal [facility] Comment on above: Result Comment: PERF ORMED BY:[address] [place], [place] [phone] MEDICAL DIRECTORMIKE CABAN M.D. Performed By: #### C DANA, CMP ####[address] Estimated GFR 49.698 mL/Min Normal [facility] Comment on above: Performed By: #### C DANA, CMP ####[address] Globulin (S) [Mass/Vol] 2.4 g/dL Normal [facility] Comment on above: Performed By: #### C DANA, CMP ####[place] [id number] [facility] [[email or web address]] Glucose [Mass/Vol] 140 mg/dL High 70-100 [facility] Comment on above: Result Comment: Coolin Glucose Reference Range is dependent on time and content of last meal. Glucose of more than 200 mg/dL in a nonstressed, ambulatory subject supports the diagnosis of Diabetes Mellitus. ADA recommended reference range Performed By: #### C DANA, CMP ####[place] [id number] [facility] [[email or web address]] Potassium [Moles/Vol] 4.2 mmol/L Normal 3.5-5.1 [facility] Comment on above: Performed By: #### C DANA, CMP ####[address] Protein [Mass/Vol] 5.8 g/dL Low 6.4-8.9 [facility] Comment on above: Performed By: #### C DANA, CMP ####[place] [id number] [facility] [[email or web address]] Sodium [Moles/Vol] 139 mmol/L Normal 136-145 [facility] Comment on above: Performed By: #### C DANA, CMP ####[place] [id number] [facility] [[email or web address]] Urea nitrogen [Mass/Vol] 13 mg/dL Normal 7-25 [facility] Comment on above: Performed By: #### C DANA, CMP ####[place] [id number] [facility] [[email or web address]] Creatinine [Mass/volume] in Serum or PlasmaOrdered By: Kevon Bazzir on 08-13-2024 Creatinine [Mass/Vol] Creatinine [Mass/v olume] in Serum or Plasma High 0.70-1.30 [facility] Erythrocyte distribution wid th Auto (RBC) [Ratio]Ordered By: Obshelly Haydenomar on 08-13-2024 Erythrocyte distribution width (RBC) [Ratio] Erythrocyte distribution width [Ratio] by Automated count High 12.0-14.8 [facility] Globulin Calc (S) [Mass/Vol] Ordered By: Kevon Viera on 08-13-2024 Globulin (S) [Mass/Vol] Serum globulin measurement by calculation (mass/volume) [facility] Glucose Glucometer (BldC) [M ass/Vol]Ordered By: Kevon Viera on 08-13-2024 Glucose [Mass/Vol] Capillary blood gluc ose measurement by glucometer (mass/volume) [facility] Comment on above: Random Glucose Refer ence Range is dependent on time and content of last meal. Glucose of more than 200 mg/dL in a nonstressed, ambulatory subject supports the diagnosis of Diabetes Mellitus. Glucose Poct Glucometerson 0 08-13-2024 Glucose [Mass/Vol] 150 mg/dL Normal [facility] Comment on above: Result Comment: Coolin om Glucose Reference Range is dependent on time and content of last meal. Glucose of more than 200 mg/dL in a nonstressed, ambulatory subject supports the diagnosis of Diabetes Mellitus.PERFORMED BY:[place] [address] [address] [place], [place] [phone] MEDICAL DIRECTORMIKE CABAN M.D. Performed By: #### G LULS ####Point of Care testing, Glucose [Mass/Vol] 173 mg/dL Normal [facility] Comment on above: Result Comment: Coolin om Glucose Reference Range is dependent on time and content of last meal. Glucose of more than 200 mg/dL in a nonstressed, ambulatory subject supports the diagnosis of Diabetes Mellitus.PERFORMED BY:[place] [address] [place], [place] [phone] MEDICAL FRANSISCO CABAN M.D. Performed By: #### G LULS ####Point of Care testing, Glucose [Mass/volume] in Ser um or PlasmaOrdered By: Kevon Viera on 08-13-2024 Glucose [Mass/Vol] Glucose [Mass/volume ] in Serum or Plasma High 70-100 [facility] Comment on above: ADA recommended refe rence rangeRandom Glucose Reference Range is dependent on time and content of last meal. Glucose of more than 200 mg/dL in a nonstressed, ambulatory subject supports the diagnosis of Diabetes Mellitus. Hematocrit Auto (Bld) [Volum e fraction]Ordered By: Kevon Viera on 08-13-2024 Hematocrit (Bld) [Volume fraction] Hematocrit [Volume Fraction] of Blood by Automated count Low 38.8-50.0 [facility] Hemoglobin [Mass/volume] in BloodOrdered By: Kevon Viera on 08-13-2024 Hemoglobin (Bld) [Mass/Vol] Hemoglobin [Mass/volume] in Blood Low 13.0-17.0 [facility] Hemogram CBC Without Diffon 08-13-2024 Erythrocyte distribution width (RBC) [Ratio] 19.9 % High 12.0-14.8 [facility] Comment on above: Performed By: #### C DANA, CMP ####[address] Hematocrit (Bld) [Volume fraction] 30.0 % Low 38.8-50.0 [facility] Comment on above: Performed By: #### C DANA, CMP ####[address] Hemoglobin (Bld) [Mass/Vol] 9.5 g/dL Low 13.0-17.0 [facility] Comment on above: Performed By: #### C DANA, CMP ####[address] MCH (RBC) [Entitic mass] 21.5 pg Low 27.5-35.2 [facility] Comment on above: Performed By: #### C DANA, CMP ####[place] [id number] [facility] [[email or web address]] MCV (RBC) [Entitic vol] 67.8 fL Low 83.5-101 [facility] Comment on above: Performed By: #### C DANA, CMP ####[place] [id number] [facility] [[email or web address]] Mean Corpuscular HGB Conc 31.7 g/dL Low 32.5-35.6 [facility] Comment on above: Performed By: #### C BCNO, CMP ####[place] [id number] [place] [id number] [facility] [[email or web address]] Platelet mean volume (Bld) [Entitic vol] 10.1 fL Normal 6.6-10.1 [facility] Comment on above: Result Comment: PERF ORMED BY:[address] [place], [place] [phone] MEDICAL DIRECTORMIKE CABAN M.D. Performed By: #### C BCNO, CMP ####[place] [id number] [place] [address] [facility] [[email or web address]] Platelets (Bld) [#/Vol] 153 10*3/uL Normal 150-450 [facility] Comment on above: Performed By: #### C BCNO, CMP ####[place] [id number] [place] [id number] [facility] [[email or web address]] RBC (Bld) [#/Vol] 4.42 10*6/uL Normal 3.90-5.60 [facility] Comment on above: Performed By: #### C BCNO, CMP ####[place] [id number] [facility] [[email or web address]] WBC (Bld) [#/Vol] 8.0 10*3/uL Normal 4.1-10.5 [facility] Comment on above: Performed By: #### C BCNO, CMP ####[place] [phone] [facility] [[email or web address]] Leukocytes [#/volume] correc jorge for nucleated erythrocytes in Blood by Automated counOrdered By: Kevon Viera on 08-13-2024 WBC corrected for nucl RBC Auto (Bld) [#/Vol] Leukocytes [#/volume] corrected for nucleated erythrocytes in Blood by Automated coun 4.1-10.5 [facility] MCH Auto (RBC) [Entitic mass ]Ordered By: Obshelly Haydenomar on 08-13-2024 MCH (RBC) [Entitic mass] MCH [Entitic mass] by Automated count Low 27.5-35.2 [facility] MCHC Auto (RBC) [Mass/Vol]Or dered By: Obaydah Daromar on 08-13-2024 MCHC (RBC) [Mass/Vol] MCHC [Mass/volume] by Automated count Low 32.5-35.6 [facility] MCV Auto (RBC) [Entitic vol] Ordered By: Objosedah Daromar on 08-13-2024 MCV (RBC) [Entitic vol] MCV [Entitic volume] by Automated count Low 83.5-101 [facility] No Panel InformationOrdered By: Obaydah Daromar on 08-13-2024 Estimated GFR (CKD-EPI) 49.698 mL/Min [facility] Creatinine Clearance (Chem 54.91 [facility] 49.698 mL/Min [facility] 54.91 [facility] Platelet mean volume Auto (B ld) [Entitic vol]Ordered By: Objosedah Daromar on 08-13-2024 Platelet mean volume (Bld) [Entitic vol] Platelet mean volume [Entitic volume] in Blood by Automated count 6.6-10.1 [facility] Platelets Auto (Bld) [#/Vol] Ordered By: Objosedah Daromar on 08-13-2024 Platelets (Bld) [#/Vol] Platelets [#/volume] in Blood by Automated count 150-450 [facility] Potassium [Moles/volume] in Serum or PlasmaOrdered By: Objosedah Daromar on 08-13-2024 Potassium [Moles/Vol] Potassium [Moles/v olume] in Serum or Plasma 3.5-5.1 [facility] Protein [Mass/volume] in Ser um or PlasmaOrdered By: Obaydah Daromar on 08-13-2024 Protein [Mass/Vol] Protein [Mass/volume ] in Serum or Plasma Low 6.4-8.9 [facility] RBC Auto (Bld) [#/Vol]Ordere d By: Obaydah Daromar on 08-13-2024 RBC (Bld) [#/Vol] Erythrocytes [#/volu me] in Blood by Automated count 3.90-5.60 [facility] Serum or plasma albumin/glob ulin mass ratioOrdered By: Kevon Haydenomar on 08-13-2024 Albumin/Globulin [Mass ratio] Serum or plasma albumin/globulin mass ratio [facility] Serum or plasma anion gap de terminationOrdered By: Kevon Haydenomar on 08-13-2024 Anion gap [Moles/Vol] Serum or plasma an ion gap determination 6.0-15.0 [facility] Sodium [Moles/volume] in Ser um or PlasmaOrdered By: Obshelly Daromar on 08-13-2024 Sodium [Moles/Vol] Sodium [Moles/volume ] in Serum or Plasma 136-145 [facility] Urea nitrogen [Mass/volume] in Serum or PlasmaOrdered By: Kevon Haydenomar on 08-13-2024 Urea nitrogen [Mass/Vol] Urea nitrogen [Mass/volume] in Serum or Plasma 7-25 [facility] Albumin Levelon 08-12-2024 Albumin [Mass/Vol] 3.5 g/dL Normal 3.5-5.7 [facility] Comment on above: Result Comment: PERF ORMED BY:[address] [place], [place] [phone] MEDICAL DIRECTORMIKE CABAN M.D. Performed By: #### S CAN CBC, ALB, BMP ####[place] [id number] [place] [address] [facility] [[email or web address]] Anisocytosis LM Ql (Bld)Orde red By: Marge Andino on 08-12-2024 Anisocytosis Ql (Bld) Anisocytosis [Pres ence] in Blood by Light microscopy [facility] Basic Metabolic Panelon 08-03 Anion gap [Moles/Vol] 11.6 mmol/L Normal 6.0-15.0 [facility] Comment on above: Performed By: #### S CAN CBC, ALB, BMP ####[address] [address] [facility] [[email or web address]] Calcium [Mass/Vol] 6.3 mg/dL Off scale low 8.6-10.3 [facility] Comment on above: Result Comment: Crit ical Result Called to and read back by: NOT FIRST TIME CRITICAL at: 08/12/2024 06:59:53 by:RG Performed By: #### S CAN CBC, ALB, BMP ####[address] Chloride [Moles/Vol] 107 mmol/L Normal 98-107 [facility] Comment on above: Performed By: #### S CAN CBC, ALB, BMP ####[address] CO2 [Moles/Vol] 25.1 mmol/L Normal 21.0-31.0 [facility] Comment on above: Performed By: #### S CAN CBC, ALB, BMP ####[address] Creatinine [Mass/Vol] 1.79 mg/dL Significan t change up 0.70-1.30 [facility] Comment on above: Performed By: #### S CAN CBC, ALB, BMP ####[address] Creatinine Clr Calc Pharmacy 48.77 Normal [facility] Comment on above: Result Comment: PERF ORMED BY:[address] [place], [place] [phone] MEDICAL DIRECTORMIKE CABAN M.D. Performed By: #### S CAN CBC, ALB, BMP ####[address] Estimated GFR 43.111 mL/Min Normal [facility] Comment on above: Performed By: #### S CAN CBC, ALB, BMP ####[place] [id number] [facility] [[email or web address]] Glucose [Mass/Vol] 91 mg/dL Normal 70-100 [facility] Comment on above: Result Comment: Coolin Glucose Reference Range is dependent on time and content of last meal. Glucose of more than 200 mg/dL in a nonstressed, ambulatory subject supports the diagnosis of Diabetes Mellitus. ADA recommended reference range Performed By: #### S CAN CBC, ALB, BMP ####[facility] [id number] [place] [id number] [facility] [[email or web address]] Potassium [Moles/Vol] 3.7 mmol/L Normal 3.5-5.1 [facility] Comment on above: Performed By: #### S CAN CBC, ALB, BMP ####[facility] [id number] [place] [id number] [facility] [[email or web address]] Sodium [Moles/Vol] 140 mmol/L Normal 136-145 [facility] Comment on above: Performed By: #### S CAN CBC, ALB, BMP ####[facility] [id number] [place] [id number] [facility] [[email or web address]] Urea nitrogen [Mass/Vol] 20 mg/dL Normal 7-25 [facility] Comment on above: Performed By: #### S CAN CBC, ALB, BMP ####[facility] [id number] [place] [id number] [facility] [[email or web address]] Basophils Auto (Bld) [#/Vol] Ordered By: Marge Andino on 08-12-2024 Basophils (Bld) [#/Vol] Automated basophil count 0.0-0.2 [facility] Basophils/100 WBC Auto (Bld) Ordered By: Marge Andino on 08-12-2024 Basophils/100 WBC (Bld) Automated basophil % . [facility] Eosinophils Auto (Bld) [#/Vo l]Ordered By: Marge Andino on 08-12-2024 Eosinophils (Bld) [#/Vol] Automated eosinophil count 0.0-0.45 [facility] Eosinophils/100 WBC Auto (Bl d)Ordered By: Marge Andino on 08-12-2024 Eosinophils/100 WBC (Bld) Automated eosinophil % . [facility] Erythrocyte morphology findi ng [Identifier] in BloodOrdered By: Marge Andino on 08-12-2024 RBC morphology finding Nom (Bld) RBC morphology [facility] Glucose Poct Glucometerson 0 08-12-2024 Glucose [Mass/Vol] 168 mg/dL Normal [facility] Comment on above: Result Comment: [place] Glucose Reference Range is dependent on time and content of last meal. Glucose of more than 200 mg/dL in a nonstressed, ambulatory subject supports the diagnosis of Diabetes Mellitus.PERFORMED BY:[address] [place], [place] [phone] MEDICAL DIRECTORMIKE CABAN M.D. Performed By: #### G LULS ####Point of Care testing, Glucose [Mass/Vol] 162 mg/dL Normal [facility] Comment on above: Result Comment: Coolin om Glucose Reference Range is dependent on time and content of last meal. Glucose of more than 200 mg/dL in a nonstressed, ambulatory subject supports the diagnosis of Diabetes Mellitus.PERFORMED BY:[address] [place], [place] [phone] MEDICAL DIRECTORMIKE CABAN M.D. Performed By: #### G LULS ####Point of Care testing, Glucose [Mass/Vol] 179 mg/dL Normal [facility] Comment on above: Result Comment: Coolin om Glucose Reference Range is dependent on time and content of last meal. Glucose of more than 200 mg/dL in a nonstressed, ambulatory subject supports the diagnosis of Diabetes Mellitus.PERFORMED BY:[place] [address] [place], [place] [phone] MEDICAL DIRECTORMIKE CABAN M.D. Performed By: #### G LULS ####Point of Care testing, Glucose [Mass/Vol] 98 mg/dL Normal [facility] Comment on above: Result Comment: Coolin om Glucose Reference Range is dependent on time and content of last meal. Glucose of more than 200 mg/dL in a nonstressed, ambulatory subject supports the diagnosis of Diabetes Mellitus.PERFORMED BY:[address] [place], [place] [phone] MEDICAL DIRECTORMIKE CABAN M.D. Performed By: #### G LULS ####Point of Care testing, Hypochromia LM Ql (Bld)Order ed By: Marge Andino on 08-12-2024 Hypochromia Ql (Bld) Hypochromia [Presen ce] in Blood by Light microscopy [facility] Lymphocytes Auto (Bld) [#/Vo l]Ordered By: Marge Andino on 08-12-2024 Lymphocytes (Bld) [#/Vol] Lymphocytes [#/volume] in Blood by Automated count 1.00-4.8 [facility] Lymphocytes/100 WBC Auto (Bl d)Ordered By: Marge Andino on 08-12-2024 Lymphocytes/100 WBC (Bld) Lymphocytes/100 leukocytes in Blood by Automated count . [facility] Magnesiumon 08-12-2024 Magnesium [Mass/Vol] 2.9 mg/dL Significant change up 1.9-2.7 [facility] Comment on above: Result Comment: PERF ORMED BY:[facility] [place], [place] [phone] MEDICAL DIRECTORMIKE CABAN M.D. Performed By: #### M G ####[facility] [place] [address] [facility] [[email or web address]] Magnesium [Mass/volume] in S ilia or PlasmaOrdered By: Maurice Francis on 08-12-2024 Magnesium [Mass/Vol] Magnesium [Mass/vol ume] in Serum or Plasma Significant change up 1.9-2.7 [facility] Comment on above: Delta: 0.5 on -0415 Microcytes LM Ql (Bld)Ordere d By: Marge Andino on 08-12-2024 Microcytes Ql (Bld) Microcytes [Presence ] in Blood by Light microscopy [facility] Monocytes Auto (Bld) [#/Vol] Ordered By: Marge Andino on 08-12-2024 Monocytes (Bld) [#/Vol] Automated blood monocyte count 0.0-0.8 [facility] Monocytes/100 WBC Auto (Bld) Ordered By: Marge Andino on 08-12-2024 Monocytes/100 WBC (Bld) Automated monocyte % . [facility] Neutrophils Auto (Bld) [#/Vo l]Ordered By: Marge Andino on 08-12-2024 Neutrophils (Bld) [#/Vol] Neutrophils [#/volume] in Blood by Automated count High 1.8-7.7 [facility] Neutrophils/100 WBC Auto (Bl d)Ordered By: Marge Andino on 08-12-2024 Neutrophils/100 WBC (Bld) Automated neutrophil % . [facility] No Panel InformationOrdered By: Marge Andino on 08-12-2024 CBC Comment See comment [facility] Comment on above: There is significant microcytosis which suggests the possibility of iron deficiency. Consider serum ferritin and iron studies. See comment [facility] Nucleated erythrocytes [Pres ence] in Blood by Automated countOrdered By: Marge Andino on 08-12-2024 Nucleated RBC Auto Ql (Bld) Nucleated erythrocytes [Presence] in Blood by Automated count 0-0.5 [facility] Ovalocytes [Presence] in Blo od by Light microscopyOrdered By: Marge Andino on 08-12-2024 Ovalocytes LM Ql (Bld) Ovalocyte detection [facility] Platelet adequacy [Presence] in Blood by Light microscopyOrdered By: Marge Andino on 08-12-2024 Platelets LM Ql (Bld) Platelet adequacy [Presence] in Blood by Light microscopy Normal [facility] Platelet morphology finding [Identifier] in BloodOrdered By: Marge Andino on 08-12-2024 Platelet morphology finding Nom (Bld) Platelet morphology finding [Identifier] in Blood Normal [facility] Poikilocytosis [Presence] in Blood by Light microscopyOrdered By: Marge Andino on 08-12-2024 Poikilocytosis LM Ql (Bld) Poikilocytosis [Presence] in Blood by Light microscopy [facility] Scan and CBCon 08-12-2024 Additional Comments Normal [facility] Comment on above: Result Comment: Ther e is significant microcytosis which suggests the possibility of iron deficiency. Consider serum ferritin and iron studies.PERFORMED BY:[place] [address] [place], [place] [phone] MEDICAL FRANSISCO CABAN M.D. Performed By: #### S CAN CBC, ALB, BMP ####[address] Anisocytosis Ql (Bld) Marked Normal [facility] Comment on above: Performed By: #### S CAN CBC, ALB, BMP ####[address] Basophils (Bld) [#/Vol] 0.1 10*3/uL Normal 0.0-0.2 [facility] Comment on above: Performed By: #### S CAN CBC, ALB, BMP ####[address] Basophils/100 WBC (Bld) 0.8 % Normal . [facility] Comment on above: Performed By: #### S CAN CBC, ALB, BMP ####[address] Eosinophils (Bld) [#/Vol] 0.3 10*3/uL Normal 0.0-0.45 [facility] Comment on above: Performed By: #### S CAN CBC, ALB, BMP ####[address] Eosinophils/100 WBC (Bld) 3.1 % Normal . [facility] Comment on above: Performed By: #### S CAN CBC, ALB, BMP ####[address] Erythrocyte distribution width (RBC) [Ratio] 20.0 % High 12.0-14.8 [facility] Comment on above: Performed By: #### S CAN CBC, ALB, BMP ####[address] Hematocrit (Bld) [Volume fraction] 29.5 % Low 38.8-50.0 [facility] Comment on above: Performed By: #### S CAN CBC, ALB, BMP ####[address] Hemoglobin (Bld) [Mass/Vol] 9.5 g/dL Low 13.0-17.0 [facility] Comment on above: Performed By: #### S CAN CBC, ALB, BMP ####[address] Hypochromasia Slight Normal [facility] Comment on above: Performed By: #### S CAN CBC, ALB, BMP ####[address] Lymphocytes (Bld) [#/Vol] 1.0 10*3/uL Normal 1.00-4.8 [facility] Comment on above: Performed By: #### S CAN CBC, ALB, BMP ####[address] Lymphocytes/100 WBC (Bld) 9.6 % Normal . [facility] Comment on above: Performed By: #### S CAN CBC, ALB, BMP ####[address] MCH (RBC) [Entitic mass] 21.9 pg Low 27.5-35.2 [facility] Comment on above: Performed By: #### S CAN CBC, ALB, BMP ####[address] MCV (RBC) [Entitic vol] 68.2 fL Low 83.5-101 [facility] Comment on above: Performed By: #### S CAN CBC, ALB, BMP ####[address] Mean Corpuscular HGB Conc 32.1 g/dL Low 32.5-35.6 [facility] Comment on above: Performed By: #### S CAN CBC, ALB, BMP ####[address] Microcytosis Moderate Normal [facility] Comment on above: Performed By: #### S CAN CBC, ALB, BMP ####[address] Monocytes (Bld) [#/Vol] 0.8 10*3/uL Normal 0.0-0.8 [facility] Comment on above: Performed By: #### S CAN CBC, ALB, BMP ####[address] Monocytes/100 WBC (Bld) 8.3 % Normal . [facility] Comment on above: Performed By: #### S CAN CBC, ALB, BMP ####[address] Neutrophils (Bld) [#/Vol] 8.0 10*3/uL High 1.8-7.7 [facility] Comment on above: Performed By: #### S CAN CBC, ALB, BMP ####[address] Neutrophils/100 WBC (Bld) 78.2 % Normal . [facility] Comment on above: Performed By: #### S CAN CBC, ALB, BMP ####[address] NRBC% 0.1 /100{WBC} Normal 0-0.5 [facility] Comment on above: Performed By: #### S CAN CBC, ALB, BMP ####[address] Ovalocytes Slight Normal [facility] Comment on above: Performed By: #### S CAN CBC, ALB, BMP ####[address] Platelet Estimate Normal Normal Normal [facility] Comment on above: Performed By: #### S CAN CBC, ALB, BMP ####[address] Platelet mean volume (Bld) [Entitic vol] 9.4 fL Normal 6.6-10.1 [facility] Comment on above: Performed By: #### S CAN CBC, ALB, BMP ####[address] Platelet Morphology Normal Normal Normal [facility] Comment on above: Performed By: #### S CAN CBC, ALB, BMP ####[place] [id number] [facility] [[email or web address]] Platelets (Bld) [#/Vol] 162 10*3/uL Normal 150-450 [facility] Comment on above: Performed By: #### S CAN CBC, ALB, BMP ####[place] [id number] [place] [address] [facility] [[email or web address]] Poikilocytosis Slight Normal [facility] Comment on above: Performed By: #### S CAN CBC, ALB, BMP ####[place] [id number] [place] [address] [facility] [[email or web address]] RBC (Bld) [#/Vol] 4.32 10*6/uL Normal 3.90-5.60 [facility] Comment on above: Performed By: #### S CAN CBC, ALB, BMP ####[place] [id number] [place] [id number] [facility] [[email or web address]] WBC (Bld) [#/Vol] 10.2 10*3/uL Normal 4.1-10.5 [facility] Comment on above: Performed By: #### S CAN CBC, ALB, BMP ####[place] [id number] [facility] [[email or web address]] WBC Auto (Bld) [#/Vol]Ordere d By: Marge Andino on 08-12-2024 WBC (Bld) [#/Vol] Leukocytes [#/volume ] in Blood by Automated count 4.1-10.5 [facility] Alanine aminotransferase [En zymatic activity/volume] in Serum or PlasmaOrdered By: Francisco Duncan on 08-11-2024 ALT [Catalytic activity/Vol] Alanine aminotransferase [Enzymatic activity/volume] in Serum or Plasma [facility] Albumin [Mass/volume] in Ser um or Plasma by Bromocresol green (BCG) dye binding methoOrdered By: Francisco Duncan on 08-11-2024 Albumin BCG dye [Mass/Vol] Albumin [Mass/volume] in Serum or Plasma by Bromocresol green (BCG) dye binding metho 3.5-5.7 [facility] Alkaline phosphatase [Enzyma tic activity/volume] in Serum or PlasmaOrdered By: Francisco Duncan on 08-11-2024 ALP [Catalytic activity/Vol] Alkaline phosphatase [Enzymatic activity/volume] in Serum or Plasma High 34-104 [facility] Anisocytosis LM Ql (Bld)Orde red By: Francisco Duncan on 08-11-2024 Anisocytosis Ql (Bld) Anisocytosis [Pres ence] in Blood by Light microscopy [facility] Appearance of UrineOrdered B y: Francisco Duncan on 08-11-2024 Appearance (U) Urine appearance Clear [facility] Aspartate aminotransferase [ Enzymatic activity/volume] in Serum or PlasmaOrdered By: Francisco Duncan on 08-11-2024 AST [Catalytic activity/Vol] Aspartate aminotransferase [Enzymatic activity/volume] in Serum or Plasma Low 13-39 [facility] Band form neutrophils/100 WB C Manual cnt (Bld)Ordered By: Francisco Duncan on 08-11-2024 Band form neutrophils/100 WBC (Bld) Peripheral white blood cell differential % bands, microscopic exam 0-5 [facility] Basophils Auto (Bld) [#/Vol] Ordered By: Francisco Dunacn on 08-11-2024 Basophils (Bld) [#/Vol] Automated basophil count [facility] Basophils/100 WBC Auto (Bld) Ordered By: Francisco Duncan on 08-11-2024 Basophils/100 WBC (Bld) Automated basophil % [facility] Basophils/100 WBC Manual cnt (Bld)Ordered By: Francisco Duncan on 08-11-2024 Basophils/100 WBC (Bld) Basophils/100 leukocytes in Blood by Manual count 0-2 [facility] Bilirubin Test strip Ql (U)O rdered By: Francisco Duncan on 08-11-2024 Bilirubin Ql (U) Bilirubin.total [Presence] in Urine by Test strip Negative [facility] Bilirubin.total [Mass/volume ] in Serum or PlasmaOrdered By: Francisco Duncan on 08-11-2024 Bilirubin [Mass/Vol] Bilirubin.total [Mass/volume] in Serum or Plasma 0.3-1.0 [facility] Leigh Ann cells [Presence] in Blo od by Light microscopyOrdered By: Francisco Duncan on 08-11-2024 [place] cells LM Ql (Bld) Leigh Ann cells [Prese nce] in Blood by Light microscopy [facility] CT angio neckon 08-11-2024 CT angio neck Normal [facility] Calcium [Mass/volume] in Ser um or PlasmaOrdered By: Francisco Duncan on 08-11-2024 Calcium [Mass/Vol] Calcium [Mass/volume ] in Serum or Plasma Critically low 8.6-10.3 [facility] Comment on above: Critical Result Call ed to and read back by: MONCHO FINK at: 08/11/2024 04:56:06 by:RANDOLPH Carbon dioxide, total [Moles /volume] in Serum or PlasmaOrdered By: Francisco Duncan on 08-11-2024 CO2 [Moles/Vol] Carbon dioxide, tota l [Moles/volume] in Serum or Plasma 21.0-31.0 [facility] Chloride [Moles/volume] in S ilia or PlasmaOrdered By: Francisco Duncan on 08-11-2024 Chloride [Moles/Vol] Chloride [Moles/vol ume] in Serum or Plasma 98-107 [facility] Color Auto (U)Ordered By: Brandon Duncan on 08-11-2024 Color (U) Color of Urine by Auto Yellow [facility] Comprehensive Metabolic Pane guy 08-11-2024 Albumin [Mass/Vol] 4.2 g/dL Normal 3.5-5.7 [facility] Comment on above: Performed By: #### D IFF CBC, CK, PT, PTT, CMP, HS TROP ####[facility] [place] [id number] [facility] [[email or web address]] Albumin/Globulin [Mass ratio] 1.6 {ratio} Normal [facility] Comment on above: Performed By: #### D IFF CBC, CK, PT, PTT, CMP, HS TROP ####[facility] [address] [place] [address] [facility] [[email or web address]] ALP [Catalytic activity/Vol] 105 U/L High 34-104 [facility] Comment on above: Performed By: #### D IFF CBC, CK, PT, PTT, CMP, HS TROP ####[facility] [place] [address] [facility] [[email or web address]] ALT [Catalytic activity/Vol] 11 U/L Normal 7-52 [facility] Comment on above: Performed By: #### D IFF CBC, CK, PT, PTT, CMP, HS TROP ####[address] Anion gap [Moles/Vol] 16.0 mmol/L High 6.0-15.0 [facility] Comment on above: Performed By: #### D IFF CBC, CK, PT, PTT, CMP, HS TROP ####[address] AST [Catalytic activity/Vol] 12 U/L Low 13-39 [facility] Comment on above: Performed By: #### D IFF CBC, CK, PT, PTT, CMP, HS TROP ####[address] Bilirubin [Mass/Vol] 0.4 mg/dL Normal 0.3-1.0 [facility] Comment on above: Performed By: #### D IFF CBC, CK, PT, PTT, CMP, HS TROP ####[address] Calcium [Mass/Vol] 6.1 mg/dL Off scale low 8.6-10.3 [facility] Comment on above: Result Comment: Crit ical Result Called to and read back by: MONCHO FINK at: 08/11/2024 04:56:06 by:RANDOLPH Performed By: #### D IFF CBC, CK, PT, PTT, CMP, HS TROP ####[address] Chloride [Moles/Vol] 100 mmol/L Normal 98-107 [facility] Comment on above: Performed By: #### D IFF CBC, CK, PT, PTT, CMP, HS TROP ####[address] CO2 [Moles/Vol] 27.1 mmol/L Normal 21.0-31.0 [facility] Comment on above: Performed By: #### D IFF CBC, CK, PT, PTT, CMP, HS TROP ####[facility] [place] [address] [facility] [[email or web address]] Creatinine [Mass/Vol] 2.62 mg/dL High 0.70-1.30 [facility] Comment on above: Performed By: #### D IFF CBC, CK, PT, PTT, CMP, HS TROP ####[place] [address] [place] [id number] [facility] [[email or web address]] Creatinine Clr Calc Pharmacy 33.32 Normal [facility] Comment on above: Result Comment: PERF ORMED BY:[address] [place], [place] [phone] MEDICAL DIRECTORMIKE CABAN M.D. Performed By: #### D IFF CBC, CK, PT, PTT, CMP, HS TROP ####[place] [address] [place] [address] [facility] [[email or web address]] Estimated GFR 27.293 mL/Min Normal [facility] Comment on above: Performed By: #### D IFF CBC, CK, PT, PTT, CMP, HS TROP ####[place] [id number] [place] [id number] [facility] [[email or web address]] Globulin (S) [Mass/Vol] 2.7 g/dL Normal [facility] Comment on above: Performed By: #### D IFF CBC, CK, PT, PTT, CMP, HS TROP ####[place] [id number] [facility] [[email or web address]] Glucose [Mass/Vol] 102 mg/dL High 70-100 [facility] Comment on above: Result Comment: Cool[place] Glucose Reference Range is dependent on time and content of last meal. Glucose of more than 200 mg/dL in a nonstressed, ambulatory subject supports the diagnosis of Diabetes Mellitus. ADA recommended reference range Performed By: #### D IFF CBC, CK, PT, PTT, CMP, HS TROP ####[place] [id number] [place] [id number] [facility] [[email or web address]] Potassium [Moles/Vol] 3.1 mmol/L Low 3.5-5.1 [facility] Comment on above: Performed By: #### D IFF CBC, CK, PT, PTT, CMP, HS TROP ####[place] [address] Protein [Mass/Vol] 6.9 g/dL Normal 6.4-8.9 [facility] Comment on above: Performed By: #### D IFF CBC, CK, PT, PTT, CMP, HS TROP ####[place] [address] Sodium [Moles/Vol] 140 mmol/L Normal 136-145 [facility] Comment on above: Performed By: #### D IFF CBC, CK, PT, PTT, CMP, HS TROP ####[address] Urea nitrogen [Mass/Vol] 26 mg/dL High 7-25 [facility] Comment on above: Performed By: #### D IFF CBC, CK, PT, PTT, CMP, HS TROP ####[place] [id number] [facility] [[email or web address]] Creatine Kinaseon 08-11-2024 CK [Catalytic activity/Vol] 305 U/L High 30-223 [facility] Comment on above: Performed By: #### D IFF CBC, CK, PT, PTT, CMP, HS TROP ####[place] [id number] [facility] [[email or web address]] Creatine kinase [Enzymatic a ctivity/volume] in Serum or PlasmaOrdered By: Francisco Duncan on 08-11-2024 CK [Catalytic activity/Vol] Creatine kinase [Enzymatic activity/volume] in Serum or Plasma High 30-223 [facility] Creatinine [Mass/volume] in Serum or PlasmaOrdered By: Francisco Duncan on 08-11-2024 Creatinine [Mass/Vol] Creatinine [Mass/v olume] in Serum or Plasma High 0.70-1.30 [facility] Diff and CBCon 08-11-2024 Anisocytosis Ql (Bld) Marked Normal [facility] Comment on above: Performed By: #### D IFF CBC, CK, PT, PTT, CMP, HS TROP ####[address] Band form neutrophils/100 WBC (Bld) 1 % Normal 0-5 [facility] Comment on above: Performed By: #### D IFF CBC, CK, PT, PTT, CMP, HS TROP ####[address] Basophils/100 WBC (Bld) 1 % Normal 0-2 [facility] Comment on above: Performed By: #### D IFF CBC, CK, PT, PTT, CMP, HS TROP ####[address] Crenated RBC Slight Normal [facility] Comment on above: Performed By: #### D IFF CBC, CK, PT, PTT, CMP, HS TROP ####[address] Eosinophils/100 WBC (Bld) 4 % High 1-3 [facility] Comment on above: Performed By: #### D IFF CBC, CK, PT, PTT, CMP, HS TROP ####[address] Erythrocyte distribution width (RBC) [Ratio] 20.1 % High 12.0-14.8 [facility] Comment on above: Performed By: #### D IFF CBC, CK, PT, PTT, CMP, HS TROP ####[address] Hematocrit (Bld) [Volume fraction] 35.8 % Low 38.8-50.0 [facility] Comment on above: Performed By: #### D IFF CBC, CK, PT, PTT, CMP, HS TROP ####[address] Hemoglobin (Bld) [Mass/Vol] 11.6 g/dL Low 13.0-17.0 [facility] Comment on above: Performed By: #### D IFF CBC, CK, PT, PTT, CMP, HS TROP ####[address] Lymphocytes/100 WBC (Bld) 30 % Normal 18-42 [facility] Comment on above: Performed By: #### D IFF CBC, CK, PT, PTT, CMP, HS TROP ####[address] MCH (RBC) [Entitic mass] 21.8 pg Low 27.5-35.2 [facility] Comment on above: Performed By: #### D IFF CBC, CK, PT, PTT, CMP, HS TROP ####[address] MCV (RBC) [Entitic vol] 67.4 fL Low 83.5-101 [facility] Comment on above: Performed By: #### D IFF CBC, CK, PT, PTT, CMP, HS TROP ####[address] Mean Corpuscular HGB Conc 32.3 g/dL Low 32.5-35.6 [facility] Comment on above: Performed By: #### D IFF CBC, CK, PT, PTT, CMP, HS TROP ####[address] Microcytosis Moderate Normal [facility] Comment on above: Performed By: #### D IFF CBC, CK, PT, PTT, CMP, HS TROP ####[address] Monocytes/100 WBC (Bld) 17.90 % Normal 0.00-20.00 [facility] Comment on above: Performed By: #### D IFF CBC, CK, PT, PTT, CMP, HS TROP ####[address] Monocytes/100 WBC (Bld) 5 % Normal 2-11 [facility] Comment on above: Performed By: #### D IFF CBC, CK, PT, PTT, CMP, HS TROP ####[address] Ovalocytes Slight Normal [facility] Comment on above: Performed By: #### D IFF CBC, CK, PT, PTT, CMP, HS TROP ####[address] [address] [facility] [[email or web address]] Platelet Estimate Normal Normal Normal [facility] Comment on above: Performed By: #### D IFF CBC, CK, PT, PTT, CMP, HS TROP ####[address] [address] [facility] [[email or web address]] Platelet mean volume (Bld) [Entitic vol] 9.1 fL Normal 6.6-10.1 [facility] Comment on above: Result Comment: PERF ORMED BY:[address] [place], [place] [phone] MEDICAL DIRECTORMIKE CABAN M.D. Performed By: #### D IFF CBC, CK, PT, PTT, CMP, HS TROP ####[address] [address] [facility] [[email or web address]] Platelet Morphology Normal Normal Normal [facility] Comment on above: Result Comment: PERF ORMED BY:[address] [place], [place] [phone] MEDICAL DIRECTORMIKE CABAN M.D. Performed By: #### D IFF CBC, CK, PT, PTT, CMP, HS TROP ####[address] [address] [facility] [[email or web address]] Platelets (Bld) [#/Vol] 209 10*3/uL Normal 150-450 [facility] Comment on above: Performed By: #### D IFF CBC, CK, PT, PTT, CMP, HS TROP ####[address] [address] [facility] [[email or web address]] Poikilocytosis Slight Normal [facility] Comment on above: Performed By: #### D IFF CBC, CK, PT, PTT, CMP, HS TROP ####[address] [address] [facility] [[email or web address]] Polychromasia Slight Normal [facility] Comment on above: Performed By: #### D IFF CBC, CK, PT, PTT, CMP, HS TROP ####[facility] RBC (Bld) [#/Vol] 5.32 10*6/uL Normal 3.90-5.60 [facility] Comment on above: Performed By: #### D IFF CBC, CK, PT, PTT, CMP, HS TROP ####[place] [id number] Segmented neutrophils/100 WBC (Bld) 60 % Normal 50-70 [facility] Comment on above: Performed By: #### D IFF CBC, CK, PT, PTT, CMP, HS TROP ####[place] [id number] WBC (Bld) [#/Vol] 10.7 10*3/uL High 4.1-10.5 [facility] Comment on above: Performed By: #### D IFF CBC, CK, PT, PTT, CMP, HS TROP ####[address] ECG 12 lead ECGon 08-11-2024 ECG 12 lead ECG Normal [facility] Eosinophils Auto (Bld) [#/Vo l]Ordered By: Francisco Duncan on 08-11-2024 Eosinophils (Bld) [#/Vol] Automated eosinophil count [facility] Eosinophils/100 WBC Auto (Bl d)Ordered By: Francisco Duncan on 08-11-2024 Eosinophils/100 WBC (Bld) Automated eosinophil % [facility] Eosinophils/100 WBC Manual c nt (Bld)Ordered By: Francisco Duncan on 08-11-2024 Eosinophils/100 WBC (Bld) Eosinophils/100 leukocytes in Blood by Manual count High 1-3 [facility] Erythrocyte distribution wid th Auto (RBC) [Ratio]Ordered By: Francisco Duncan on 08-11-2024 Erythrocyte distribution width (RBC) [Ratio] Erythrocyte distribution width [Ratio] by Automated count High 12.0-14.8 [facility] Erythrocyte morphology findi ng [Identifier] in BloodOrdered By: Francisco Duncan on 08-11-2024 RBC morphology finding Nom (Bld) RBC morphology [facility] Ferritinon 08-11-2024 Ferritin [Mass/Vol] 5.3 ng/mL Low 23.9-336.2 [facility] Comment on above: Order Comment: Comme nt add Result Comment: PERF ORMED BY:[facility] [place], [place] [phone] MEDICAL DIRECTORMIKE CABAN M.D. Performed By: #### F E and TIBC, LILA ####[facility] [place] [address] [facility] [[email or web address]] Ferritin [Mass/volume] in Se rum or PlasmaOrdered By: Marge Andino on 08-11-2024 Ferritin [Mass/Vol] Ferritin [Mass/volum e] in Serum or Plasma Low 23.9-336.2 [facility] Folate [Mass/volume] in Seru m or PlasmaOrdered By: Marge Andino on 08-11-2024 Folate [Mass/Vol] Folate [Mass/volume] in Serum or Plasma >5.9 [facility] Comment on above: Folate reference ran ge: >5.9 ng/mlThe WHO technical consultation on folate and vitamin [id number] has determined that folate concentrations lessthan 4 ng/ml are considered deficient. Globulin Calc (S) [Mass/Vol] Ordered By: Francisco Duncan on 08-11-2024 Globulin (S) [Mass/Vol] Serum globulin measurement by calculation (mass/volume) [facility] Glucose Poct Glucometerson 0 08-11-2024 Commemt1 Glu2: Cleaned Meter Normal [facility] Comment on above: Result Comment: PERF ORMED BY:[facility] [place], [place] [phone] MEDICAL DIRECTORMIKE CABAN M.D. Performed By: #### G LULS ####Point of Care testing, Glucose [Mass/Vol] 241 mg/dL Normal [facility] Comment on above: Result Comment: [place] Glucose Reference Range is dependent on time and content of last meal. Glucose of more than 200 mg/dL in a nonstressed, ambulatory subject supports the diagnosis of Diabetes Mellitus. Performed By: #### G LULS ####Point of Care testing, Glucose [Mass/Vol] 244 mg/dL Normal [facility] Comment on above: Result Comment: [place] om Glucose Reference Range is dependent on time and content of last meal. Glucose of more than 200 mg/dL in a nonstressed, ambulatory subject supports the diagnosis of Diabetes Mellitus.PERFORMED BY:[place] [address] [place], [place] [phone] MEDICAL DIRECTORMIKE CABAN M.D. Performed By: #### G LULS ####Point of Care testing, Commemt1 Glu2: Cleaned Meter Normal [facility] Comment on above: Result Comment: PERF ORMED BY:[place] [address] [place], [place] [phone] MEDICAL DIRECTORMIKE CABAN M.D. Performed By: #### G LULS ####Point of Care testing, Glucose [Mass/Vol] 89 mg/dL Normal [facility] Comment on above: Result Comment: Coolin om Glucose Reference Range is dependent on time and content of last meal. Glucose of more than 200 mg/dL in a nonstressed, ambulatory subject supports the diagnosis of Diabetes Mellitus. Performed By: #### G LULS ####Point of Care testing, Glucose [Mass/Vol] 176 mg/dL Normal [facility] Comment on above: Result Comment: Coolin om Glucose Reference Range is dependent on time and content of last meal. Glucose of more than 200 mg/dL in a nonstressed, ambulatory subject supports the diagnosis of Diabetes Mellitus.PERFORMED BY:[place] [address] [place], [place] [phone] MEDICAL DIRECTORMIKE CABAN M.D. Performed By: #### G LULS ####Point of Care testing, Glucose [Mass/volume] in Ser um or PlasmaOrdered By: Francisco Duncan on 08-11-2024 Glucose [Mass/Vol] Glucose [Mass/volume ] in Serum or Plasma High 70-100 [facility] Comment on above: ADA recommended refe [...] in Urine by Test strip High Normal [facility] Hematocrit Auto (Bld) [Volum e fraction]Ordered By: Francisco Duncan on 08-11-2024 Hematocrit (Bld) [Volume fraction] Hematocrit [Volume Fraction] of Blood by Automated count Low 38.8-50.0 [facility] Hemoglobin Test strip Ql (U) Ordered By: Francisco Duncan on 08-11-2024 Hemoglobin Ql (U) Hemoglobin [Presence ] in Urine by Test strip Negative [facility] Hemoglobin [Mass/volume] in BloodOrdered By: Farncisco Duncan on 08-11-2024 Hemoglobin (Bld) [Mass/Vol] Hemoglobin [Mass/volume] in Blood Low 13.0-17.0 [facility] INR in Platelet poor plasma by Coagulation assayOrdered By: Francisco Duncan on 08-11-2024 INR Coag (PPP) [Relative time] INR in Platelet poor plasma by Coagulation assay [facility] Comment on above: INR Therapeutic Rang [...] i n Serum or Plasma Low 50-212 [facility] Iron and TIBC Profileon % Iron Saturation 7.0 % Low 20-50 [facility] Comment on above: Order Comment: Comme nt add Performed By: #### F E and TIBC, LILA ####[facility] [place] [address] [email or web address]] Iron [Mass/Vol] 29 ug/dL Low 50-212 [facility] Comment on above: Order Comment: Comme nt add Performed By: #### F E and TIBC, LILA ####[facility] [place] [address] [facility] [[email or web address]] Total Iron Binding Capacity 414 ug/dL Normal 255-450 [facility] Comment on above: Order Comment: Comme nt add Performed By: #### F E and TIBC, LILA ####[facility] [place] [address] [facility] [[email or web address]] Transferrin [Mass/Vol] 296 mg/dL Normal 203-362 [facility] Comment on above: Order Comment: Comme nt add Performed By: #### F E and TIBC, LILA ####[place] [id number] [place] [id number] [facility] [[email or web address]] Ketones Test strip Ql (U)Ord ered By: Francisco Duncan on 08-11-2024 Ketones Ql (U) Ketones [Presence] i n Urine by Test strip Negative [facility] Leukocyte esterase [Presence ] in Urine by Test stripOrdered By: Francisco Duncan on 08-11-2024 Leukocyte esterase Test strip Ql (U) Leukocyte esterase [Presence] in Urine by Test strip Negative [facility] Leukocytes [#/volume] correc jorge for nucleated erythrocytes in Blood by Automated counOrdered By: Francisco Duncan on 08-11-2024 WBC corrected for nucl RBC Auto (Bld) [#/Vol] Leukocytes [#/volume] corrected for nucleated erythrocytes in Blood by Automated coun High 4.1-10.5 [facility] Lymphocytes Auto (Bld) [#/Vo l]Ordered By: Francisco Duncan on 08-11-2024 Lymphocytes (Bld) [#/Vol] Lymphocytes [#/volume] in Blood by Automated count [facility] Lymphocytes/100 WBC Auto (Bl d)Ordered By: Francisco Duncan on 08-11-2024 Lymphocytes/100 WBC (Bld) Lymphocytes/100 leukocytes in Blood by Automated count [facility] Lymphocytes/100 WBC Manual c nt (Bld)Ordered By: Francisco Duncan on 03-09-2025 Lymphocytes/100 WBC (Bld) Lymphocytes/100 leukocytes in Blood by Manual count 18-42 [facility] MCH Auto (RBC) [Entitic mass ]Ordered By: Francisco Duncan on 08-11-2024 MCH (RBC) [Entitic mass] MCH [Entitic mass] by Automated count Low 27.5-35.2 [facility] MCHC Auto (RBC) [Mass/Vol]Or dered By: Francisco Duncan on 08-11-2024 MCHC (RBC) [Mass/Vol] MCHC [Mass/volume] by Automated count Low 32.5-35.6 [facility] MCV Auto (RBC) [Entitic vol] Ordered By: Francisco Duncan on 08-11-2024 MCV (RBC) [Entitic vol] MCV [Entitic volume] by Automated count Low 83.5-101 [facility] Magnesiumon 08-11-2024 Magnesium [Mass/Vol] 0.5 mg/dL Off scale low 1.9-2.7 [facility] Comment on above: Order Comment: Comme nt add Result Comment: Crit ical Result S_MG: Called to and read back by: MONCHO FINK at: 08/11/2024 06:13:29 by:RANDOLPH Performed By: #### T SH3, MG, [id number], [id number] ####[facility] [id number] [facility] [[email or web address]] Magnesium [Mass/volume] in S ilia or PlasmaOrdered By: Marge Andino on 08-11-2024 Magnesium [Mass/Vol] Magnesium [Mass/vol ume] in Serum or Plasma Critically low 1.9-2.7 [facility] Comment on above: Critical Result S_MG : Called to and read back by: MONCHO FINK at: 08/11/2024 06:13:29 by:RANDOLPH Microcytes LM Ql (Bld)Ordere d By: Francisco Duncan on 08-11-2024 Microcytes Ql (Bld) Microcytes [Presence ] in Blood by Light microscopy [facility] Monocyte distribution width [Entitic volume] in Blood by AutomatedOrdered By: Francisco Duncan on 08-11-2024 Monocyte distribution width Auto (Bld) [Entitic vol] Monocyte distribution width [Entitic volume] in Blood by Automated 0.00-20.00 [facility] Monocytes Auto (Bld) [#/Vol] Ordered By: Francisco Duncan on 08-11-2024 Monocytes (Bld) [#/Vol] Automated blood monocyte count [facility] Monocytes/100 WBC Auto (Bld) Ordered By: Francisco Duncan on 08-11-2024 Monocytes/100 WBC (Bld) Automated monocyte % [facility] Monocytes/100 WBC Manual cnt (Bld)Ordered By: Francisco Duncan on 08-11-2024 Monocytes/100 WBC (Bld) Monocytes/100 leukocytes in Blood by Manual count 11 [facility] Neutrophils Auto (Bld) [#/Vo l]Ordered By: Francisco Duncan on 08-11-2024 Neutrophils (Bld) [#/Vol] Neutrophils [#/volume] in Blood by Automated count [facility] Neutrophils/100 WBC Auto (Bl d)Ordered By: Francisco Duncan on 08-11-2024 Neutrophils/100 WBC (Bld) Automated neutrophil % [facility] Nitrite Test strip Ql (U)Ord ered By: Francisco Duncan on 08-11-2024 Nitrite Ql (U) Nitrite [Presence] i n Urine by Test strip Negative [facility] No Panel InformationOrdered By: Kevon Viera on 08-11-2024 Bedside Glucose Comment Glu2: cleaned meter [facility] Glu2: cleaned meter [facility] No Panel InformationOrdered By: Francisco Duncan on 08-11-2024 Estimated GFR (CKD-EPI) 27.293 mL/Min [facility] Creatinine Clearance (Chem 33.32 [facility] Nucleated erythrocytes [Pres ence] in Blood by Automated countOrdered By: Francisco Duncan on 08-11-2024 Nucleated RBC Auto Ql (Bld) Nucleated erythrocytes [Presence] in Blood by Automated count [facility] Ovalocytes [Presence] in Blo od by Light microscopyOrdered By: Francisco Duncan on 08-11-2024 Ovalocytes LM Ql (Bld) Ovalocyte detection [facility] Parathyrin.intact [Mass/volu me] in Serum or PlasmaOrdered By: Francisco Duncan on 08-11-2024 Parathyrin.intact [Mass/Vol] Parathyrin.intact [Mass/volume] in Serum or Plasma [facility] Parathyroid Hormone Intacton 08-11-2024 Parathyroid Hormone Intact 38.3 pg/mL Normal [facility] Comment on above: Result Comment: PERF ORMED BY:[address] [address] [address] [place], [place] [phone] MEDICAL DIRECTORMIKE CABAN M.D. Performed By: #### P TH, PHOS ####[id number] [place] [address] [facility] [[email or web address]] Partial Thromboplastin Timeo n 08-11-2024 aPTT Coag (Bld) [Time] 30.9 s Normal 25.1-36.5 [facility] Comment on above: Result Comment: A he matocrit value greater than 55% may lead to inaccurate results in coagulation testing. Patients having hematocrit values >55% require a special collection tube for coagulation studies. Please contact the laboratory at [phone] for redraw instructions.PERFORMED BY:[address] [place], [place] [phone] MEDICAL DIRECTORMIKE CABAN M.D. Performed By: #### D IFF CBC, CK, PT, PTT, CMP, HS TROP ####[address] [address] [facility] [[email or web address]] Phosphate [Mass/volume] in S ilia or PlasmaOrdered By: Francisco Duncan on 08-11-2024 Phosphate [Mass/Vol] Phosphate [Mass/vol ume] in Serum or Plasma High 2.5-4.5 [facility] Phosphoruson 08-11-2024 Phosphate [Mass/Vol] 4.8 mg/dL High 2.5-4.5 [facility] Comment on above: Result Comment: PERF ORMED BY:[address] [address] [address] [place], [place] [phone] MEDICAL DIRECTORMIKE CABAN M.D. Performed By: #### P TH, PHOS ####[address] [address] [facility] [[email or web address]] Platelet adequacy [Presence] in Blood by Light microscopyOrdered By: Francisco Duncan on 08-11-2024 Platelets LM Ql (Bld) Platelet adequacy [Presence] in Blood by Light microscopy Normal [facility] Platelet mean volume Auto (B ld) [Entitic vol]Ordered By: Francisco Duncan on 08-11-2024 Platelet mean volume (Bld) [Entitic vol] Platelet mean volume [Entitic volume] in Blood by Automated count 6.6-10.1 [facility] Platelet morphology finding [Identifier] in BloodOrdered By: Francisco Duncan on 08-11-2024 Platelet morphology finding Nom (Bld) Platelet morphology finding [Identifier] in Blood Normal [facility] Platelets Auto (Bld) [#/Vol] Ordered By: Francisco Duncan on 08-11-2024 Platelets (Bld) [#/Vol] Platelets [#/volume] in Blood by Automated count 150-450 [facility] Poikilocytosis [Presence] in Blood by Light microscopyOrdered By: Francisco Duncan on 08-11-2024 Poikilocytosis LM Ql (Bld) Poikilocytosis [Presence] in Blood by Light microscopy [facility] Polychromasia [Presence] in Blood by Light microscopyOrdered By: Francisco Duncan on 08-11-2024 Polychromasia LM Ql (Bld) Polychromasia [Presence] in Blood by Light microscopy [facility] Potassium [Moles/volume] in Serum or PlasmaOrdered By: Francisco Duncan on 08-11-2024 Potassium [Moles/Vol] Potassium [Moles/v olume] in Serum or Plasma Low 3.5-5.1 [facility] Protein Test strip (U) [Mass /Vol]Ordered By: Francisco Duncan on 08-11-2024 Protein (U) [Mass/Vol] Protein [Mass/vol ume] in Urine by Test strip Negative [facility] Protein [Mass/volume] in Ser um or PlasmaOrdered By: Francisco Duncan on 08-11-2024 Protein [Mass/Vol] Protein [Mass/volume ] in Serum or Plasma 6.4-8.9 [facility] Prothrombin Time INRon 08-11 INR Coag (PPP) [Relative time] 1.2 {INR} Normal [facility] Comment on above: Result [...] CBC, CK, PT, PTT, CMP, HS TROP ####[facility] [id number] [facility] [[email or web address]] PT Coag (PPP) [Time] 13.8 s High 9.0-12.9 [facility] Comment on above: Result Comment: A he matocrit value greater than 55% may lead to inaccurate results in coagulation testing. Patients having hematocrit values >55% require a special collection tube for coagulation studies. Please contact the laboratory at [phone] for redraw instructions. Performed By: #### D IFF CBC, CK, PT, PTT, CMP, HS TROP ####[facility] [id number] [facility] [[email or web address]] Prothrombin time (PT)Ordered By: Francisco Duncan on 08-11-2024 PT Coag (PPP) [Time] Prothrombin time (PT) High 9.0- 12.9 [facility] Comment on above: A hematocrit value g reater than 55% may lead to inaccurate results in coagulation testing. Patients having hematocrit values >55% require a special collection tube for coagulation studies. Please contact the laboratory at [phone] for redraw instructions. RBC Auto (Bld) [#/Vol]Ordere d By: Francisco Duncan on 08-11-2024 RBC (Bld) [#/Vol] Erythrocytes [#/volu me] in Blood by Automated count 3.90-5.60 [facility] Segmented neutrophils/100 WB C Manual cnt (Bld)Ordered By: Francisco Duncan on 08-11-2024 Segmented neutrophils/100 WBC (Bld) Manual blood segmented neutrophils/100 leukocytes 50-70 [facility] Serum or plasma albumin/glob ulin mass ratioOrdered By: Francisco Duncan on 08-11-2024 Albumin/Globulin [Mass ratio] Serum or plasma albumin/globulin mass ratio [facility] Serum or plasma anion gap de terminationOrdered By: Francisco Duncan on 08-11-2024 Anion gap [Moles/Vol] Serum or plasma an ion gap determination High 6.0-15.0 [facility] Serum or plasma iron binding capacity measurement (mass/volume)Ordered By: Marge Andino on 08-11-2024 Iron binding capacity [Mass/Vol] Iron binding capacity [Mass/volume] in Serum or Plasma 255-450 [facility] Serum or plasma iron saturat ion measurement (mass fraction)Ordered By: Marge Andino on 08-11-2024 Iron saturation [Mass fraction] Iron saturation [Mass Fraction] in Serum or Plasma Low 20-50 [facility] Sodium [Moles/volume] in Ser um or PlasmaOrdered By: Francisco Duncan on 08-11-2024 Sodium [Moles/Vol] Sodium [Moles/volume ] in Serum or Plasma 136-145 [facility] Specific gravity Test strip (U) [Rel density]Ordered By: Francisco Duncan on 08-11-2024 Specific gravity (U) [Rel density] Specific gravity of Urine by Test strip 1.001-1.03 0 [facility] Thyroid Stimulating Hormoneo n 08-11-2024 TSH Qn 4.18 m[IU]/L Normal 0.45-5.33 [facility] Comment on above: Order Comment: Comme nt add Performed By: #### T SH3, MG, [id number], [id number] ####[facility] [id number] [place] [address] [facility] [[email or web address]] Thyrotropin [Units/volume] i n Serum or PlasmaOrdered By: Marge Andino on 08-11-2024 TSH Qn Thyrotropin [Units/volume] in Serum or Plasma 0.45-5.33 [facility] Transferrin [Mass/volume] in Serum or PlasmaOrdered By: Marge Andino on 08-11-2024 Transferrin [Mass/Vol] Transferrin [Mass /volume] in Serum or Plasma 203-362 [facility] Troponin I High Sensitivityo n 08-11-2024 Troponin I High Sensitivity 6 Normal 0-20 [facility] Comment on above: Result Comment: The Troponin units of report have been changed to meet the Chest Pain Accreditation requirement, element EC5.M1l2. Troponin units are changed from pg/ml to ng/L. Also, the decimal is removed and results are in whole numbers.PERFORMED BY:[address] [place], [place] [id number] MEDICAL DIRECTORMIKE CABAN M.D. Performed By: #### D IFF CBC, CK, PT, PTT, CMP, HS TROP ####[address] [address] [facility] [[email or web address]] Troponin I.cardiac [Mass/vol ume] in Serum or Plasma by Detection limit <= 0.01 ng/Ordered By: Francisco Duncan on 08-11-2024 Troponin I.cardiac DL <= 0.01 ng/mL [Mass/Vol] Troponin I.cardiac [Mass/volume] in Serum or Plasma by Detection limit <= 0.01 ng/ 0-20 [facility] Comment on above: The Troponin units [...] [Mass/volume] in Serum or Plasma High 7-25 [facility] Urinalysison 08-11-2024 Appearance (U) Clear Normal Clear [facility] Comment on above: Order Comment: Name Collection Type:: Voided Performed By: #### U A ####[id number] [place] [address] [facility] [[email or web address]] Bilirubin,Urine Negative Normal Negative [facility] Comment on above: Order Comment: Name Collection Type:: Voided Performed By: #### U A ####[id number] [place] [address] [facility] [[email or web address]] Color (U) Light-Yellow Normal Yellow [facility] Comment on above: Order Comment: Name Collection Type:: Voided Performed By: #### U A ####[address] [address] [facility] [[email or web address]] Glucose Ql (U) 500 mg/dL High Normal [facility] Comment on above: Order Comment: Name Collection Type:: Voided Performed By: #### U A ####[address] [address] [facility] [[email or web address]] Ketones Ql (U) Negative Normal Negative [facility] Comment on above: Order Comment: Name Collection Type:: Voided Performed By: #### U A ####[address] [address] [facility] [[email or web address]] Leukocyte esterase Test strip Ql (U) Negative Normal Negative [facility] Comment on above: Order Comment: Name Collection Type:: Voided Performed By: #### U A ####[address] [address] [facility] [[email or web address]] Nitrite,Urine Negative Normal Negative [facility] Comment on above: Order Comment: Name Collection Type:: Voided Performed By: #### U A ####[address] [address] [facility] [[email or web address]] Occult Blood,Urine Negative Normal Negative [facility] Comment on above: Order Comment: Name Collection Type:: Voided Result Comment: PERF ORMED BY:[address] [address] [address] [place], [place] [phone] MEDICAL DIRECTORMIKE CABAN M.D. Performed By: #### U A ####[address] [address] [facility] [[email or web address]] pH (U) 5.5 [pH] Normal 5.0-9.0 [facility] Comment on above: Order Comment: Name Collection Type:: Voided Performed By: #### U A ####[address] [address] [facility] [[email or web address]] Protein,Urine Negative Normal Negative [facility] Comment on above: Order Comment: Name Collection Type:: Voided Performed By: #### U A ####[address] [address] [facility] [[email or web address]] Specificy [place],Urine 1.024 Normal 1.001-1.03 0 [facility] Comment on above: Order Comment: Name Collection Type:: Voided Performed By: #### U A ####[id number] Urobilinogen,Urine Normal Normal Normal [facility] Comment on above: Order Comment: Name Collection Type:: Voided Performed By: #### U A ####[id number] Urobilinogen Test strip (U) [Mass/Vol]Ordered By: Francisco Duncan on 08-11-2024 Urobilinogen (U) [Mass/Vol] Urobilinogen [Mass/volume] in Urine by Test strip Normal [facility] Vit. B12/Folate Profileon Cobalamin (Vitamin B12) [Mass/Vol] 129 pg/mL Low 180-914 [facility] Comment on above: Order Comment: Comme nt add Performed By: #### T SH3, MG, [id number], [id number] ####[address] Folate 14.0 ng/mL Normal >5.9 [facility] Comment on above: Order Comment: Comme nt add Result Comment: Aure te reference range: >5.9 ng/ml The WHO technical consultation on folate and vitamin b12 deficiencies has determined that folate concentrations less than 4 ng/ml are considered deficient. Performed By: #### T SH3, MG, [id number], [id number] ####[address] Vitamin B12 ser/plasOrdered By: Marge Andino on 08-11-2024 Cobalamin (Vitamin B12) [Mass/Vol] Vitamin B12 ser/plas Low 180-914 [facility] Vitamin D 25 Hydroxy Totalon 08-11-2024 Vitamin D 25 Hydroxy Total 15.0 ng/mL Low 30-100 [facility] Comment on above: Order Comment: Comme nt add Result Comment: SUBHA MIN D STATUS 25(OH)VITAMIN D RANGE (ng/mL) Deficient <20 Insufficient 20 to <30 Sufficient 30 to 100 Reference: Marisol MARISCAL,Ibrahima TIRADO, Kasey LONG, et al. Evaluation,treatment, and prevention of vitamin D deficiency; an Endocrine Society clinical practice guideline. JCEM. 2010; 96(7):1911-30.PERFORMED BY:[facility] [place] [address] [id number] MEDICAL DIRECTORMIKE CABAN M.D. Performed By: #### T SH3, MG, [id number], [id number] ####[facility] [place] [address] [facility] [[email or web address]] Vitamin D+Metabolites [Mass/ volume] in Serum or PlasmaOrdered By: Marge Andino on 08-11-2024 Vitamin D+Metabolites [Mass/Vol] Vitamin D+Metabolites [Mass/volume] in Serum or Plasma Low 30-100 [facility] Comment on above: VITAMIN D STATUS 25( [place])VITAMIN D RANGE (ng/mL) Deficient <20 Insufficient 20 to <30Sufficient 30 to 100Reference: Marisol MARISCAL,Ibrahima TIRADO, Kasey LONG, et al. Evaluation,treatment, and prevention of vitamin D deficiency; an Endocrine Society clinical practice guideline. JCEM. 2010; 96(7):1911-30. WBC Auto (Bld) [#/Vol]Ordere d By: Francisco Duncan on 08-11-2024 WBC (Bld) [#/Vol] Leukocytes [#/volume ] in Blood by Automated count High 4.1-10.5 [facility] X-ray reportOrdered By: Jose Lind on 08-11-2024 Study report [facility] [address] [place] [address] [place] [address] XRay Report Signed Patient: Myra Pickard SR MR#: [id number] : 1965 Acct:[id number] Age/Sex: 59 / M ADM Date: 5 Loc: Room: [address] [place] [address] Type: ADM IN Attending Dr: Kevon Viera MD Copies to: ObayMD Francisco Marin Jr, MD~ Ordering Provider: Francisco Duncan Jr, [...] Sudeep Lind M.D.08/11/2024 10:06 AM Dictation Location: [facility] Transcribed By: [facility] 08/11/24 1006 Dictated By: Sudeep Lind DO 08/11/24 1006 Signed By: 08/11/24 1006 [facility] XR chest 1V portableon 08-11 XR chest 1V portable Normal [facility] aPTT in Platelet poor plasma by Coagulation assayOrdered By: Francisco Duncan on 08-11-2024 aPTT Coag (PPP) [Time] Activated partial thromboplastin time (aPTT) in platelet poor plasma by coagulation a 25.1-36.5 [facility] Comment on above: A hematocrit value g reater than 55% may lead to inaccurate results in coagulation testing. Patients having hematocrit values >55% require a special collection tube for coagulation studies. Please contact the laboratory at [phone] for redraw instructions. pH Test strip (U)Ordered By: Francisco Duncan on 08-11-2024 pH (U) pH of Urine by Test strip 5.0-9.0 [facility] Urology Office/Clinic Noteon 08-06-2024 Urology Office/Clinic Note Urology Office/Clinic Note Chief Complaint Patient is here for scrotal pain HPI Staff Patient is here for f/u to [facility] 07/24/24 due to scrotal pain. They [...] w Right BKA. 1. Orchitis (N45.2: Orchitis) [facility] ER 07/24/24 w sudden onset scrotal/groin pain. [...] pain meds. Will provide limited rx Ultram. Photogeologist Cl 44. 08/02/2024 09:33:52 I certify that I have reviewed the OARRS report and all PDMP information in this chart. Follow-up With When Contact Information [facility] Additional Instructions: Only if needed/new problems arise. [...] failure) GERD [Gastroesophageal reflux disease] HTN [Hypertension] MS (myocardial infarction) NIDDM Procedure/Surgical History BKA - [...] cap(s), Oral, (more content not included)... Normal [facility] Comment on above: Result Comment: Elec tronically Signed By: MARYBEL VANG PA-C\.br\Date and Time Signed: 08/06/24 12:28 EST Basophils Auto (Bld) [#/Vol] on 07-24-2024 Basophils (Bld) [#/Vol] Automated basophil count 0.0-0.1 [facility] Basophils/100 WBC Auto (Bld) on 07-24-2024 Basophils/100 WBC (Bld) Automated basophil % 0.2-2.0 [facility] Eosinophils/100 WBC Auto (Bl d)on 07-24-2024 Eosinophils/100 WBC (Bld) Automated eosinophil % 0.9-7.0 [facility] Erythrocyte distribution wid th Auto (RBC) [Ratio]on 07-24-2024 Erythrocyte distribution width (RBC) [Ratio] Erythrocyte distribution width [Ratio] by Automated count High 11.0-15.0 [facility] Estimated glomerular filtrat ion rate (GFR) non- Americanon 07-24-2024 GFR/1.73 sq M.predicted among non-blacks MDRD (S/P/Bld) [Vol rate/Area] Estimated glomerular filtration rate (GFR) non- Low >=60 mL/min/1.7 3m 2 [facility] Globulin Calc (S) [Mass/Vol] on 07-24-2024 Globulin (S) [Mass/Vol] Serum globulin measurement by calculation (mass/volume) [facility] Hematocrit Auto (Bld) [Volum e fraction]on 07-24-2024 Hematocrit (Bld) [Volume fraction] Hematocrit [Volume Fraction] of Blood by Automated count Low 42.0-54.0 [facility] Hemoglobin [Mass/volume] in Bloodon 07-24-2024 Hemoglobin (Bld) [Mass/Vol] Hemoglobin [Mass/volume] in Blood Low 14.0-18.0 [facility] Laboratory - Chemistry and C hemistry - challengeon 07-24-2024 Albumin [Mass/Vol] 3.3 g/dL Low 3.4-5.0 [facility] ALP [Catalytic activity/Vol] 111 U/L 46-116 [facility] ALT [Catalytic activity/Vol] 16 U/L 16-63 [facility] AST [Catalytic activity/Vol] 11 U/L Low 15-37 [facility] Bilirubin [Mass/Vol] 0.4 mg/dL 0.2-1.0 [facility] Calcium [Mass/Vol] 8.4 mg/dL Low 8.5-10.1 [facility] Chloride [Moles/Vol] 102 mmol/L 98-107 [facility] CO2 [Moles/Vol] 26.3 mmol/L 21.0-32.0 [facility] Creatinine [Mass/Vol] 2.28 mg/dL High 0.70-1.30 [facility] GFR/1.73 sq M.predicted MDRD (S/P/Bld) [Vol rate/Area] 36 mL/min/{1.73_m2} Low >=60 mL/min/1.7 3m 2 [facility] Glucose [Mass/Vol] 177 mg/dL High 74-106 [facility] Lactate [Moles/Vol] 1.8 mmol/L 0.4-2.0 [facility] Potassium [Moles/Vol] 3.4 mmol/L Low 3.5-5.1 [facility] Protein [Mass/Vol] 7.0 g/dL 6.4-8.2 [facility] Sodium [Moles/Vol] 139 mmol/L 136-145 [facility] Urea nitrogen [Mass/Vol] 22.0 mg/dL High 7.0-18.0 [facility] Urea nitrogen/Creatinine [Mass ratio] 9.6 mg/mg [facility] Laboratory - Hematology and Cell countson 07-24-2024 Immature granulocytes/100 WBC (Bld) 0.3 % 0.0-0.5 [facility] Leukocytes [#/volume] correc jorge for nucleated erythrocytes in Blood by Automated counon 07-24-2024 WBC corrected for nucl RBC Auto (Bld) [#/Vol] Leukocytes [#/volume] corrected for nucleated erythrocytes in Blood by Automated coun 4.0-11.0 [facility] Lymphocytes Auto (Bld) [#/Vo l]on 07-24-2024 Lymphocytes (Bld) [#/Vol] Lymphocytes [#/volume] in Blood by Automated count 1.2-3.8 [facility] Lymphocytes/100 WBC Auto (Bl d)on 07-24-2024 Lymphocytes/100 WBC (Bld) Lymphocytes/100 leukocytes in Blood by Automated count 20.5-60.0 [facility] MCH Auto (RBC) [Entitic mass ]on 07-24-2024 MCH (RBC) [Entitic mass] MCH [Entitic mass] by Automated count Low 25.9-34.0 [facility] MCHC Auto (RBC) [Mass/Vol]on 07-24-2024 MCHC (RBC) [Mass/Vol] MCHC [Mass/volume] by Automated count Low 29.9-35.2 [facility] MCV Auto (RBC) [Entitic vol] on 07-24-2024 MCV (RBC) [Entitic vol] MCV [Entitic volume] by Automated count Low 80.0-94.0 [facility] Monocytes Auto (Bld) [#/Vol] on 07-24-2024 Monocytes (Bld) [#/Vol] Automated blood monocyte count High 0.3-0.8 [facility] Monocytes/100 WBC Auto (Bld) on 07-24-2024 Monocytes/100 WBC (Bld) Automated monocyte % 1.7-12.0 [facility] Neutrophils Auto (Bld) [#/Vo l]on 07-24-2024 Neutrophils (Bld) [#/Vol] Neutrophils [#/volume] in Blood by Automated count 1.4-6.5 [facility] Neutrophils/100 WBC Auto (Bl d)on 07-24-2024 Neutrophils/100 WBC (Bld) Automated neutrophil % 43.0-75.0 [facility] No Panel Informationon 07-24 Eosinophils # (Auto) 0.4 10 3/uL 0.0-0.7 [facility] Immature Granulocyte # (Auto) 0.03 10 3/uL 0.00-0.03 [facility] Platelet mean volume Auto (B ld) [Entitic vol]on 07-24-2024 Platelet mean volume (Bld) [Entitic vol] Platelet mean volume [Entitic volume] in Blood by Automated count 9.5-13.5 [facility] Platelets Auto (Bld) [#/Vol] on 07-24-2024 Platelets (Bld) [#/Vol] Platelets [#/volume] in Blood by Automated count 150-450 [facility] RBC Auto (Bld) [#/Vol]on RBC (Bld) [#/Vol] Erythrocytes [#/volu me] in Blood by Automated count 4.70-6.10 [facility] Serum or plasma albumin/glob ulin mass ratioon 07-24-2024 Albumin/Globulin [Mass ratio] Serum or plasma albumin/globulin mass ratio [facility] Serum or plasma anion gap de terminationon 07-24-2024 Anion gap [Moles/Vol] Serum or plasma an ion gap determination [facility] PSA Totalon 05-28-2024 Prostate specific Ag [Mass/Vol] 1.0 ng/mL Normal 0.1-3.5 [facility] Comment on above: Result Comment: The concentration of PSA determined by different manufacturers can vary due to differences in assay methods and reagent specificity. Values obtained from different assay methods cannot be used interchangeably. The methodology used for this result was chemiluminescence using [employer] Access Hybrite[employer] PSA reagent. Performed By: #### 1 [id number] #### [facility] [address] [place] [address] Ambulatory Visit Summaryon 1 07-28-2023 Ambulatory Visit [...] Garcia When: Where: [facility] [address] , [place] [address] [phone] Medications What How Much When Instructions Unchanged tamsulosin (tamsulosin 0.4 mg Cap) 1 Capsules By Mouth 2 times a day Pickup at [facility]/pharmacy #[id number] Unchanged albuterol (ProAir HFA) Inhalation Every 6 [...] concerns Unchanged (more content not included)... Normal [facility] Urology Office/Clinic Noteon 05-27-2024 Urology Office/Clinic [...] urination. -Cont Tamsulosin bid. Refills sent to [facility] Gamaliel. 2. Screening PSA (prostate specific antigen) (Z12.5: [...] Blum, URL [facility] [address] [place] [address]- [phone] Additional Instructions: 1 yr Patient Education Benign Prostatic Hyperplasia I, Sharri Mora, personally scribed for Dr. Rowe on 05/27/2024 16:01:18. . Documentation recorded by the scribe, Sharri [...] failure) GERD [Gastroesophageal reflux disease] HTN [Hypertension] MS (myocardial infarction) NIDDM Procedure/Surgical History BKA - [...] Daily me (more content not included)... Normal [facility] Comment on above: Result Comment: Elec tronically Signed By: Yeyo ROWE MD\.br\Date and Time Signed: 05/27/24 16:02 EST\.br\Electronically Co-Signed By: Sharri Mora\.br\Date and Time Co-Signed: 05/27/24 16:01 EST Glucose Glucometer (BldC) [M ass/Vol]Ordered By: Mike Burleson on 04-23-2024 Glucose [Mass/Vol] Capillary blood gluc ose measurement by glucometer (mass/volume) [facility] Comment on above: Random Glucose Refer ence Range is dependent on time and content of last meal. Glucose of more than 200 mg/dL in a nonstressed, ambulatory subject supports the diagnosis of Diabetes Mellitus. Glucose Poct Glucometerson 1 06-23-2023 Commemt1 Glu2: Cleaned Meter Normal [facility] Comment on above: Result Comment: PERF ORMED BY:[facility] [place], [place] [phone] MEDICAL DIRECTORMIKE CABAN M.D. Performed By: #### G LULS ####Point of Care testing, Glucose [Mass/Vol] 212 mg/dL Normal [facility] Comment on above: Result Comment: [place] om Glucose Reference Range is dependent on time and content of last meal. Glucose of more than 200 mg/dL in a nonstressed, ambulatory subject supports the diagnosis of Diabetes Mellitus. Performed By: #### G LULS ####Point of Care testing, Guy 04-23-2024 L Normal [facility] No Panel InformationOrdered By: Mike Burleson on 04-23-2024 Bedside Glucose Comment Glu2: cleaned meter [facility] HbA1c HPLC (Bld) [Mass fract ion]on 04-04-2024 HbA1c (Bld) [Mass fraction] Hemoglobin A1c/Hemoglobin.total in Blood by HPLC [facility] Alanine aminotransferase [En zymatic activity/volume] in Serum or PlasmaOrdered By: João Powell on 03-13-2024 ALT [Catalytic activity/Vol] 38 U/L Normal [facility] Comment on above: Performed By: #### C MP, PHOS, CBC, MG ####[facility] [id number] ALT [Catalytic activity/Vol] Alanine aminotransferase [Enzymatic activity/volume] in Serum or Plasma [facility] Albumin [Mass/volume] in Ser um or Plasma by Bromocresol green (BCG) dye binding methoOrdered By: João Powell on 03-13-2024 Albumin BCG dye [Mass/Vol] 3.6 g/dL 3.5-5.7 [facility] Albumin BCG dye [Mass/Vol] Albumin [Mass/volume] in Serum or Plasma by Bromocresol green (BCG) dye binding metho 3.5-5.7 [facility] Alkaline phosphatase [Enzyma tic activity/volume] in Serum or PlasmaOrdered By: João Powell on 03-13-2024 ALP [Catalytic activity/Vol] 313 U/L High [address] [place] [address] Comment on above: Performed By: #### C MP, PHOS, CBC, MG ####[place] [id number] ALP [Catalytic activity/Vol] Alkaline phosphatase [Enzymatic activity/volume] in Serum or Plasma [address] Aspartate aminotransferase [ Enzymatic activity/volume] in Serum or PlasmaOrdered By: Jãoo Powell on 03-13-2024 AST [Catalytic activity/Vol] 28 U/L Normal [facility] Comment on above: Performed By: #### C MP, PHOS, CBC, MG ####[place] [id number] AST [Catalytic activity/Vol] Aspartate aminotransferase [Enzymatic activity/volume] in Serum or Plasma [facility] Automated basophil %Ordered By: João Powell on 03-13-2024 Basophils/100 WBC (Bld) 1.2 % Normal . [facility] Comment on above: Performed By: #### C MP, PHOS, CBC, MG ####[address] Automated basophil countOrde red By: João Powell on 03-13-2024 Basophils (Bld) [#/Vol] 0.1 10*3/uL Normal 0.0-0.2 [facility] Comment on above: Result Comment: PERF ORMED BY:[address] [place], [place] [phone] MEDICAL DIRECTORCLIFFORD LOBATO M.D. Performed By: #### C MP, PHOS, CBC, MG ####[address] Automated blood monocyte cou ntOrdered By: João Powell on 03-13-2024 Monocytes (Bld) [#/Vol] 0.9 10*3/uL High 0.0-0.8 [facility] Comment on above: Performed By: #### C MP, PHOS, CBC, MG ####[address] Automated eosinophil %Ordere d By: João Powell on 03-13-2024 Eosinophils/100 WBC (Bld) 3.0 % Normal . [facility] Comment on above: Performed By: #### C MP, PHOS, CBC, MG ####[address] Automated eosinophil countOr dered By: João Powell on 03-13-2024 Eosinophils (Bld) [#/Vol] 0.2 10*3/uL Normal 0.0-0.45 [facility] Comment on above: Performed By: #### C MP, PHOS, CBC, MG ####[address] Automated monocyte %Ordered By: João Powell on 03-13-2024 Monocytes/100 WBC (Bld) 14.4 % Normal . [facility] Comment on above: Performed By: #### C MP, PHOS, CBC, MG ####[address] Automated neutrophil %Ordere d By: João Powell on 03-13-2024 Neutrophils/100 WBC (Bld) 66.7 % Normal . [facility] Comment on above: Performed By: #### C MP, PHOS, CBC, MG ####[facility] [id number] [address] Basophils Auto (Bld) [#/Vol] Ordered By: João Powell on 03-13-2024 Basophils (Bld) [#/Vol] Automated basophil count 0.0-0.2 [facility] Basophils/100 WBC Auto (Bld) Ordered By: João Powell on 03-13-2024 Basophils/100 WBC (Bld) Automated basophil % . [facility] Bilirubin.total [Mass/volume ] in Serum or PlasmaOrdered By: João Powell on 03-13-2024 Bilirubin [Mass/Vol] 0.9 mg/dL Normal 0.3-1.0 [facility] Comment on above: Performed By: #### C MP, PHOS, CBC, MG ####[facility] [id number] Bilirubin [Mass/Vol] Bilirubin.total [Mass/volume] in Serum or Plasma 0.3-1.0 [facility] Calcium [Mass/volume] in Ser um or PlasmaOrdered By: João Powell on 03-13-2024 Calcium [Mass/Vol] 9.1 mg/dL Normal 8.6-10.3 [facility] Comment on above: Performed By: #### C MP, PHOS, CBC, MG ####[facility] [id number] [place] [id number] [facility] [[email or web address]] Calcium [Mass/Vol] Calcium [Mass/volume ] in Serum or Plasma 8.6-10.3 [facility] Capillary blood glucose ashley urement by glucometer (mass/volume)Ordered By: Remberto Ervin on 03-13-2024 Glucose [Mass/Vol] 155 mg/dL Normal [facility] Comment on above: Random Glucose Refer ence Range is dependent on time and content of last meal. Glucose of more than 200 mg/dL in a nonstressed, ambulatory subject supports the diagnosis of Diabetes Mellitus. Result Comment: [facility] Glucose Reference Range is dependent on time and content of last meal. Glucose of more than 200 mg/dL in a nonstressed, ambulatory subject supports the diagnosis of Diabetes Mellitus.PERFORMED BY:[address] [place], [place] [phone] MEDICAL DIRECTORCLIFFORD LOBATO M.D. Performed By: #### G NELI ####Point of Care testing, Carbon dioxide, total [Moles /volume] in Serum or PlasmaOrdered By: João Powell on 03-13-2024 CO2 [Moles/Vol] 23.9 mmol/L Normal 21.0-31.0 [facility] Comment on above: Performed By: #### C MP, PHOS, CBC, MG ####[address] [address] [facility] [[email or web address]] CO2 [Moles/Vol] Carbon dioxide, tota l [Moles/volume] in Serum or Plasma 21.0-31.0 [facility] Chloride [Moles/volume] in S ilia or PlasmaOrdered By: João Powell on 03-13-2024 Chloride [Moles/Vol] 101 mmol/L Normal 98-107 [facility] Comment on above: Performed By: #### C MP, PHOS, CBC, MG ####[address] [address] [facility] [[email or web address]] Chloride [Moles/Vol] Chloride [Moles/vol ume] in Serum or Plasma 98-107 [facility] Complete Blood Count Auto Di ffon 03-13-2024 Mean Corpuscular HGB Conc 31.7 g/dL Low 32.5-35.6 [facility] Comment on above: Performed By: #### C MP, PHOS, CBC, MG ####[address] [address] [facility] [[email or web address]] NRBC% 0.1 /100{WBC} Normal 0-0.5 [facility] Comment on above: Performed By: #### C MP, PHOS, CBC, MG ####[facility] [place] [id number] [facility] [[email or web address]] Comprehensive Metabolic Pane guy 03-13-2024 Albumin [Mass/Vol] 3.6 g/dL Normal 3.5-5.7 [facility] Comment on above: Performed By: #### C MP, PHOS, CBC, MG ####[place] [address] [place] [id number] [facility] [[email or web address]] Creatinine Clr Calc Pharmacy 56.79 Normal [facility] Comment on above: Performed By: #### C MP, PHOS, CBC, MG ####[place] [address] [place] [id number] [facility] [[email or web address]] GFR/1.73 sq M.predicted MDRD (S/P/Bld) [Vol rate/Area] 53.205 mL/min/{1.73_m2} Normal [facility] Comment on above: Performed By: #### C MP, PHOS, CBC, MG ####[address] Creatinine [Mass/volume] in Serum or PlasmaOrdered By: João Powell on 03-13-2024 Creatinine [Mass/Vol] 1.51 mg/dL High 0.70-1.30 [facility] Comment on above: Performed By: #### C MP, PHOS, CBC, MG ####[place] [id number] [facility] [[email or web address]] Creatinine [Mass/Vol] Creatinine [Mass/v olume] in Serum or Plasma High 0.70-1.30 [facility] Eosinophils Auto (Bld) [#/Vo l]Ordered By: João Powell on 03-13-2024 Eosinophils (Bld) [#/Vol] Automated eosinophil count 0.0-0.45 [facility] Eosinophils/100 WBC Auto (Bl d)Ordered By: João Powell on 03-13-2024 Eosinophils/100 WBC (Bld) Automated eosinophil % . [facility] Erythrocyte distribution wid th Auto (RBC) [Ratio]Ordered By: João Powell on 03-13-2024 Erythrocyte distribution width (RBC) [Ratio] Erythrocyte distribution width [Ratio] by Automated count High 12.0-14.8 [facility] Erythrocyte distribution wid th [Ratio] by Automated countOrdered By: João Powell on 03-13-2024 Erythrocyte distribution width (RBC) [Ratio] 24.5 % High 12.0-14.8 [facility] Comment on above: Performed By: #### C MP, PHOS, CBC, MG ####[facility] [id number] [place] [address] [facility] [[email or web address]] Erythrocytes [#/volume] in B lood by Automated countOrdered By: João Powell on 03-13-2024 RBC (Bld) [#/Vol] 4.12 10*6/uL Normal 3.90-5.60 [facility] Comment on above: Performed By: #### C MP, PHOS, CBC, MG ####[facility] [id number] [place] [address] [facility] [[email or web address]] Globulin Calc (S) [Mass/Vol] Ordered By: João Powell on 03-13-2024 Globulin (S) [Mass/Vol] Serum globulin measurement by calculation (mass/volume) [facility] Glucose Glucometer (BldC) [M ass/Vol]Ordered By: Remberto Ervin on 03-13-2024 Glucose [Mass/Vol] Capillary blood gluc ose measurement by glucometer (mass/volume) [facility] Comment on above: Random Glucose Refer ence Range is dependent on time and content of last meal. Glucose of more than 200 mg/dL in a nonstressed, ambulatory subject supports the diagnosis of Diabetes Mellitus. Glucose Poct Glucometerson 1 Glucose [Mass/Vol] 162 mg/dL Normal [facility] Comment on above: Result Comment: [facility] Glucose Reference Range is dependent on time and content of last meal. Glucose of more than 200 mg/dL in a nonstressed, ambulatory subject supports the diagnosis of Diabetes Mellitus.PERFORMED BY:[address] [place], [place] [phone] MEDICAL DIRECTORCLIFFORD LOBATO M.D. Performed By: #### G LULS ####Point of Care testing, Glucose [Mass/volume] in Ser um or PlasmaOrdered By: João Powell on 03-13-2024 Glucose [Mass/Vol] 149 mg/dL High 70-100 [facility] Comment on above: ADA recommended refe rence rangeRandom Glucose Reference Range is dependent on time and content of last meal. Glucose of more than 200 mg/dL in a nonstressed, ambulatory subject supports the diagnosis of Diabetes Mellitus. Result Comment: [facility] Glucose Reference Range is dependent on time and content of last meal. Glucose of more than 200 mg/dL in a nonstressed, ambulatory subject supports the diagnosis of Diabetes Mellitus. ADA recommended reference range Performed By: #### C MP, PHOS, CBC, MG ####[place] [id number] Glucose [Mass/Vol] Glucose [Mass/volume ] in Serum or Plasma High 70-100 [facility] Comment on above: ADA recommended refe rence rangeRandom Glucose Reference Range is dependent on time and content of last meal. Glucose of more than 200 mg/dL in a nonstressed, ambulatory subject supports the diagnosis of Diabetes Mellitus. Hematocrit Auto (Bld) [Volum e fraction]Ordered By: João Powell on 03-13-2024 Hematocrit (Bld) [Volume fraction] Hematocrit [Volume Fraction] of Blood by Automated count Low 38.8-50.0 [facility] Hematocrit [Volume Fraction] of Blood by Automated countOrdered By: João Powell on 03-13-2024 Hematocrit (Bld) [Volume fraction] 29.9 % Low 38.8-50.0 [facility] Comment on above: Performed By: #### C MP, PHOS, CBC, MG ####[place] [id number] [place] [id number] [facility] [[email or web address]] Hemoglobin [Mass/volume] in BloodOrdered By: João Powell on 03-13-2024 Hemoglobin (Bld) [Mass/Vol] 9.5 g/dL Low 13.0-17.0 [facility] Comment on above: Performed By: #### C MP, PHOS, CBC, MG ####[place] [id number] [place] [id number] [facility] [[email or web address]] Hemoglobin (Bld) [Mass/Vol] Hemoglobin [Mass/volume] in Blood Low 13.0-17.0 [facility] Leukocytes [#/volume] correc jorge for nucleated erythrocytes in Blood by Automated counOrdered By: João Powell on 03-13-2024 WBC corrected for nucl RBC Auto (Bld) [#/Vol] 6.0 10*3/uL 4.1-10.5 [facility] WBC corrected for nucl RBC Auto (Bld) [#/Vol] Leukocytes [#/volume] corrected for nucleated erythrocytes in Blood by Automated coun 4.1-10.5 [facility] Leukocytes [#/volume] in Blo od by Automated countOrdered By: João Powell on 03-13-2024 WBC (Bld) [#/Vol] 6.0 10*3/uL Normal 4.1-10.5 [facility] Comment on above: Performed By: #### C MP, PHOS, CBC, MG ####[facility] [id number] [address] Lymphocytes Auto (Bld) [#/Vo l]Ordered By: João Powell on 03-13-2024 Lymphocytes (Bld) [#/Vol] Lymphocytes [#/volume] in Blood by Automated count Low 1.00-4.8 [facility] Lymphocytes [#/volume] in Bl ood by Automated countOrdered By: João Powell on 03-13-2024 Lymphocytes (Bld) [#/Vol] 0.9 10*3/uL Low 1.00-4.8 [facility] Comment on above: Performed By: #### C MP, PHOS, CBC, MG ####[facility] [id number] [address] Lymphocytes/100 WBC Auto (Bl d)Ordered By: João Powell on 03-13-2024 Lymphocytes/100 WBC (Bld) Lymphocytes/100 leukocytes in Blood by Automated count . [facility] Lymphocytes/100 leukocytes i n Blood by Automated countOrdered By: João Powell on 03-13-2024 Lymphocytes/100 WBC (Bld) 14.7 % Normal . [facility] Comment on above: Performed By: #### C MP, PHOS, CBC, MG ####[facility] [id number] MCH Auto (RBC) [Entitic mass ]Ordered By: João Powell on 03-13-2024 MCH (RBC) [Entitic mass] MCH [Entitic mass] by Automated count Low 27.5-35.2 [facility] MCH [Entitic mass] by Automa jorge countOrdered By: João Powell on 03-13-2024 MCH (RBC) [Entitic mass] 23.0 pg Low 27.5-35.2 [facility] Comment on above: Performed By: #### C MP, PHOS, CBC, MG ####[facility] [id number] [place] [address] MCHC Auto (RBC) [Mass/Vol]Or dered By: João Powell on 03-13-2024 MCHC (RBC) [Mass/Vol] 31.7 g/dL Low 32.5-35.6 [facility] MCHC (RBC) [Mass/Vol] MCHC [Mass/volume] by Automated count Low 32.5-35.6 [facility] MCV Auto (RBC) [Entitic vol] Ordered By: João Powell on 03-13-2024 MCV (RBC) [Entitic vol] MCV [Entitic volume] by Automated count Low 83.5-101 [facility] MCV [Entitic volume] by Auto mated countOrdered By: João Powell on 03-13-2024 MCV (RBC) [Entitic vol] 72.6 fL Low 83.5-101 [facility] Comment on above: Performed By: #### C MP, PHOS, CBC, MG ####[facility] [id number] [place] [address] Magnesium [Mass/volume] in S ilia or PlasmaOrdered By: João Powell on 03-13-2024 Magnesium [Mass/Vol] 1.7 mg/dL Low 1.9-2.7 [facility] Comment on above: Result Comment: PERF ORMED BY:[facility] [place], [place] [phone] MEDICAL DIRECTORCLIFFORD LOBATO M.D. Performed By: #### C MP, PHOS, CBC, MG ####[facility] [place] [address] [facility] [[email or web address]] Magnesium [Mass/Vol] Magnesium [Mass/vol ume] in Serum or Plasma Low 1.9-2.7 [facility] Monocytes Auto (Bld) [#/Vol] Ordered By: João Powell on 03-13-2024 Monocytes (Bld) [#/Vol] Automated blood monocyte count High 0.0-0.8 [facility] Monocytes/100 WBC Auto (Bld) Ordered By: João Powell on 03-13-2024 Monocytes/100 WBC (Bld) Automated monocyte % . [facility] Neutrophils Auto (Bld) [#/Vo l]Ordered By: João Powell on 03-13-2024 Neutrophils (Bld) [#/Vol] Neutrophils [#/volume] in Blood by Automated count 1.8-7.7 [facility] Neutrophils [#/volume] in Bl ood by Automated countOrdered By: João Powell on 03-13-2024 Neutrophils (Bld) [#/Vol] 4.0 10*3/uL Normal 1.8-7.7 [facility] Comment on above: Performed By: #### C MP, PHOS, CBC, MG ####[facility] [place] [address] [facility] [[email or web address]] Neutrophils/100 WBC Auto (Bl d)Ordered By: João Powell on 03-13-2024 Neutrophils/100 WBC (Bld) Automated neutrophil % . [facility] No Panel InformationOrdered By: João Powell on 03-13-2024 Estimated GFR (CKD-EPI) 53.205 mL/Min [facility] Creatinine Clearance (Chem 56.79 [facility] 53.205 mL/Min [facility] 56.79 [facility] Nucleated erythrocytes [Pres ence] in Blood by Automated countOrdered By: João Powell on 03-13-2024 Nucleated RBC Auto Ql (Bld) 0.1 /100{WBC} 0-0.5 [facility] Nucleated RBC Auto Ql (Bld) Nucleated erythrocytes [Presence] in Blood by Automated count 0-0.5 [facility] Phosphate [Mass/volume] in S ilia or PlasmaOrdered By: João Powell on 03-13-2024 Phosphate [Mass/Vol] 3.0 mg/dL Normal 2.5-4.5 [facility] Comment on above: Performed By: #### C MP, PHOS, CBC, MG ####[address] Phosphate [Mass/Vol] Phosphate [Mass/vol ume] in Serum or Plasma 2.5-4.5 [facility] Platelet mean volume Auto (B ld) [Entitic vol]Ordered By: João Powell on 03-13-2024 Platelet mean volume (Bld) [Entitic vol] Platelet mean volume [Entitic volume] in Blood by Automated count 6.6-10.1 [facility] Platelet mean volume [Entiti c volume] in Blood by Automated countOrdered By: João Powell on 03-13-2024 Platelet mean volume (Bld) [Entitic vol] 8.9 fL Normal 6.6-10.1 [facility] Comment on above: Performed By: #### C MP, PHOS, CBC, MG ####[place] [id number] [place] Platelets Auto (Bld) [#/Vol] Ordered By: João Powell on 03-13-2024 Platelets (Bld) [#/Vol] Platelets [#/volume] in Blood by Automated count 150-450 [facility] Platelets [#/volume] in Bloo d by Automated countOrdered By: João Powell on 03-13-2024 Platelets (Bld) [#/Vol] 197 10*3/uL Normal 150-450 [facility] Comment on above: Performed By: #### C MP, PHOS, CBC, MG ####[place] [id number] [place] Potassium [Moles/volume] in Serum or PlasmaOrdered By: João Powell on 03-13-2024 Potassium [Moles/Vol] 3.9 mmol/L Normal 3.5-5.1 [facility] Comment on above: Performed By: #### C MP, PHOS, CBC, MG ####[facility] [place] [id number] [facility] [[email or web address]] Potassium [Moles/Vol] Potassium [Moles/v olume] in Serum or Plasma 3.5-5.1 [facility] Protein [Mass/volume] in Ser um or PlasmaOrdered By: João Powell on 03-13-2024 Protein [Mass/Vol] 7.5 g/dL Normal 6.4-8.9 [facility] Comment on above: Performed By: #### C MP, PHOS, CBC, MG ####[address] Protein [Mass/Vol] Protein [Mass/volume ] in Serum or Plasma 6.4-8.9 [facility] RBC Auto (Bld) [#/Vol]Ordere d By: João Powell on 03-13-2024 RBC (Bld) [#/Vol] Erythrocytes [#/volu me] in Blood by Automated count 3.90-5.60 [facility] Serum globulin measurement b y calculation (mass/volume)Ordered By: João Powell on 03-13-2024 Globulin (S) [Mass/Vol] 3.9 g/dL [facility] Comment on above: Performed By: #### C MP, PHOS, CBC, MG ####[place] [id number] [place] [id number] [facility] [[email or web address]] Serum or plasma albumin/glob ulin mass ratioOrdered By: João Powell on 03-13-2024 Albumin/Globulin [Mass ratio] 0.9 {ratio} [facility] Comment on above: Performed By: #### C MP, PHOS, CBC, MG ####[place] [id number] [facility] [[email or web address]] Albumin/Globulin [Mass ratio] Serum or plasma albumin/globulin mass ratio [facility] Serum or plasma anion gap de terminationOrdered By: João Powell on 03-13-2024 Anion gap [Moles/Vol] 13.0 mmol/L Normal 6.0-15.0 [facility] Comment on above: Performed By: #### C MP, PHOS, CBC, MG ####[address] [address] [facility] [[email or web address]] Anion gap [Moles/Vol] Serum or plasma an ion gap determination 6.0-15.0 [facility] Sodium [Moles/volume] in Ser um or PlasmaOrdered By: João Powell on 03-13-2024 Sodium [Moles/Vol] 134 mmol/L Low 136-145 [facility] Comment on above: Performed By: #### C MP, PHOS, CBC, MG ####[address] [address] [facility] [[email or web address]] Sodium [Moles/Vol] Sodium [Moles/volume ] in Serum or Plasma Low 136-145 [facility] Urea nitrogen [Mass/volume] in Serum or PlasmaOrdered By: João Powell on 03-13-2024 Urea nitrogen [Mass/Vol] 18 mg/dL Normal 12-27 [facility] Comment on above: Performed By: #### C MP, PHOS, CBC, MG ####[address] [address] [facility] [[email or web address]] Urea nitrogen [Mass/Vol] Urea nitrogen [Mass/volume] in Serum or Plasma 12-27 [facility] WBC Auto (Bld) [#/Vol]Ordere d By: João Powell on 03-13-2024 WBC (Bld) [#/Vol] Leukocytes [#/volume ] in Blood by Automated count 4.1-10.5 [facility] Complete Blood Count Auto Di ffon 03-12-2024 Basophils (Bld) [#/Vol] 0.0 10*3/uL Normal 0.0-0.2 [facility] Comment on above: Result Comment: PERF ORMED BY:[place] [address] [address] [place], [place] [phone] MEDICAL DIRECTORCLIFFORD LOBATO M.D. Performed By: #### C BC, CMP, PHOS, MG ####[address] Basophils/100 WBC (Bld) 0.8 % Normal . [facility] Comment on above: Performed By: #### C BC, CMP, PHOS, MG ####[address] Eosinophils (Bld) [#/Vol] 0.1 10*3/uL Normal 0.0-0.45 [facility] Comment on above: Performed By: #### C BC, CMP, PHOS, MG ####[address] Eosinophils/100 WBC (Bld) 1.7 % Normal . [facility] Comment on above: Performed By: #### C BC, CMP, PHOS, MG ####[address] Erythrocyte distribution width (RBC) [Ratio] 24.0 % High 12.0-14.8 [facility] Comment on above: Performed By: #### C BC, CMP, PHOS, MG ####[address] Hematocrit (Bld) [Volume fraction] 28.0 % Low 38.8-50.0 [facility] Comment on above: Performed By: #### C BC, CMP, PHOS, MG ####[address] Hemoglobin (Bld) [Mass/Vol] 9.0 g/dL Low 13.0-17.0 [facility] Comment on above: Performed By: #### C BC, CMP, PHOS, MG ####[address] Lymphocytes (Bld) [#/Vol] 0.7 10*3/uL Low 1.00-4.8 [facility] Comment on above: Performed By: #### C BC, CMP, PHOS, MG ####[address] Lymphocytes/100 WBC (Bld) 12.6 % Normal . [facility] Comment on above: Performed By: #### C BC, CMP, PHOS, MG ####[address] MCH (RBC) [Entitic mass] 23.1 pg Low 27.5-35.2 [facility] Comment on above: Performed By: #### C BC, CMP, PHOS, MG ####[address] MCV (RBC) [Entitic vol] 72.1 fL Low 83.5-101 [facility] Comment on above: Performed By: #### C BC, CMP, PHOS, MG ####[address] Mean Corpuscular HGB Conc 32.1 g/dL Low 32.5-35.6 [facility] Comment on above: Performed By: #### C BC, CMP, PHOS, MG ####[address] Monocytes (Bld) [#/Vol] 1.0 10*3/uL High 0.0-0.8 [facility] Comment on above: Performed By: #### C BC, CMP, PHOS, MG ####[address] Monocytes/100 WBC (Bld) 16.2 % Normal . [facility] Comment on above: Performed By: #### C BC, CMP, PHOS, MG ####[address] Neutrophils (Bld) [#/Vol] 4.0 10*3/uL Normal 1.8-7.7 [facility] Comment on above: Performed By: #### C BC, CMP, PHOS, MG ####[address] Neutrophils/100 WBC (Bld) 68.7 % Normal . [facility] Comment on above: Performed By: #### C BC, CMP, PHOS, MG ####[address] NRBC% 0.1 /100{WBC} Normal 0-0.5 [facility] Comment on above: Performed By: #### C BC, CMP, PHOS, MG ####[address] Platelet mean volume (Bld) [Entitic vol] 8.8 fL Normal 6.6-10.1 [facility] Comment on above: Performed By: #### C BC, CMP, PHOS, MG ####[address] Platelets (Bld) [#/Vol] 191 10*3/uL Normal 150-450 [facility] Comment on above: Performed By: #### C BC, CMP, PHOS, MG ####[address] RBC (Bld) [#/Vol] 3.89 10*6/uL Low 3.90-5.60 [facility] Comment on above: Performed By: #### C BC, CMP, PHOS, MG ####[address] WBC (Bld) [#/Vol] 5.9 10*3/uL Normal 4.1-10.5 [facility] Comment on above: Performed By: #### C BC, CMP, PHOS, MG ####[place] [id number] [facility] [[email or web address]] Comprehensive Metabolic Pane guy 03-12-2024 Albumin [Mass/Vol] 3.5 g/dL Normal 3.5-5.7 [facility] Comment on above: Performed By: #### C BC, CMP, PHOS, MG ####[address] Albumin/Globulin [Mass ratio] 0.9 {ratio} Normal [facility] Comment on above: Performed By: #### C BC, CMP, PHOS, MG ####[address] ALP [Catalytic activity/Vol] 328 U/L High 34-104 [facility] Comment on above: Performed By: #### C BC, CMP, PHOS, MG ####[address] ALT [Catalytic activity/Vol] 46 U/L Normal 7-52 [facility] Comment on above: Performed By: #### C BC, CMP, PHOS, MG ####[address] Anion gap [Moles/Vol] 14.2 mmol/L Normal 6.0-15.0 [facility] Comment on above: Performed By: #### C BC, CMP, PHOS, MG ####[address] AST [Catalytic activity/Vol] 34 U/L Normal 13-39 [facility] Comment on above: Performed By: #### C BC, CMP, PHOS, MG ####[address] Bilirubin [Mass/Vol] 1.0 mg/dL Normal 0.3-1.0 [facility] Comment on above: Performed By: #### C BC, CMP, PHOS, MG ####[address] Calcium [Mass/Vol] 9.1 mg/dL Normal 8.6-10.3 [facility] Comment on above: Performed By: #### C BC, CMP, PHOS, MG ####[address] Chloride [Moles/Vol] 104 mmol/L Normal 98-107 [facility] Comment on above: Performed By: #### C BC, CMP, PHOS, MG ####[address] [place] [address] [place] CO2 [Moles/Vol] 21.7 mmol/L Normal 21.0-31.0 [facility] Comment on above: Performed By: #### C BC, CMP, PHOS, MG ####[place] [id number] Creatinine [Mass/Vol] 1.46 mg/dL High 0.70-1.30 [facility] Comment on above: Performed By: #### C BC, CMP, PHOS, MG ####[address] Creatinine Clr Calc Pharmacy 58.74 Normal [facility] Comment on above: Performed By: #### C BC, CMP, PHOS, MG ####[address] GFR/1.73 sq M.predicted MDRD (S/P/Bld) [Vol rate/Area] 55.398 mL/min/{1.73_m2} Normal [facility] Comment on above: Performed By: #### C BC, CMP, PHOS, MG ####[address] Globulin (S) [Mass/Vol] 3.7 g/dL Normal [facility] Comment on above: Performed By: #### C BC, CMP, PHOS, MG ####[address] Glucose [Mass/Vol] 167 mg/dL High 70-100 [facility] Comment on above: Result Comment: [place] Glucose Reference Range is dependent on time and content of last meal. Glucose of more than 200 mg/dL in a nonstressed, ambulatory subject supports the diagnosis of Diabetes Mellitus. ADA recommended reference range Performed By: #### C BC, CMP, PHOS, MG ####[address] Potassium [Moles/Vol] 3.9 mmol/L Normal 3.5-5.1 [facility] Comment on above: Performed By: #### C BC, CMP, PHOS, MG ####[facility] [place] [address] [facility] [[email or web address]] Protein [Mass/Vol] 7.2 g/dL Normal 6.4-8.9 [facility] Comment on above: Performed By: #### C BC, CMP, PHOS, MG ####[id number] [place] [address] [facility] [[email or web address]] Sodium [Moles/Vol] 136 mmol/L Normal 136-145 [facility] Comment on above: Performed By: #### C BC, CMP, PHOS, MG ####[place] [id number] [facility] [[email or web address]] Urea nitrogen [Mass/Vol] 19 mg/dL Normal 7-25 [facility] Comment on above: Performed By: #### C BC, CMP, PHOS, MG ####[place] [id number] [facility] [[email or web address]] Glucose Poct Glucometerson 1 Glucose [Mass/Vol] 174 mg/dL Normal [facility] Comment on above: Result Comment: [facility] Glucose Reference Range is dependent on time and content of last meal. Glucose of more than 200 mg/dL in a nonstressed, ambulatory subject supports the diagnosis of Diabetes Mellitus.PERFORMED BY:[address] [place], [place] [phone] MEDICAL DIRECTORCLIFFORD LOBATO M.D. Performed By: #### G LULS ####Point of Care testing, Glucose [Mass/Vol] 216 mg/dL Normal [facility] Comment on above: Result Comment: [facility] Glucose Reference Range is dependent on time and content of last meal. Glucose of more than 200 mg/dL in a nonstressed, ambulatory subject supports the diagnosis of Diabetes Mellitus.PERFORMED BY:[address] [place], [place] [phone] MEDICAL BRISA LOBATO M.D. Performed By: #### G LULS ####Point of Care testing, Glucose [Mass/Vol] 230 mg/dL Normal [facility] Comment on above: Result Comment: [place] Glucose Reference Range is dependent on time and content of last meal. Glucose of more than 200 mg/dL in a nonstressed, ambulatory subject supports the diagnosis of Diabetes Mellitus.PERFORMED BY:[place] [address] [address] [place], [place] [phone] MEDICAL DIRECTORCLIFFORD LOBATO M.D. Performed By: #### G LULS ####Point of Care testing, Glucose [Mass/Vol] 179 mg/dL Normal [facility] Comment on above: Result Comment: [place] om Glucose Reference Range is dependent on time and content of last meal. Glucose of more than 200 mg/dL in a nonstressed, ambulatory subject supports the diagnosis of Diabetes Mellitus.PERFORMED BY:[place] [address] [address] AVD[place]rianMary[place], [place] [phone] MEDICAL DIRECTORCLIFFORD LOBATO M.D. Performed By: #### G LUYUNG ####Point of Care testing, Magnesiumon 03-12-2024 Magnesium [Mass/Vol] 2.0 mg/dL Normal 1.9-2.7 [facility] Comment on above: Result Comment: PERF ORMED BY:[address] [place], [place] [phone] MEDICAL DIRECTORCLIFFORD LOBATO M.D. Performed By: #### C BC, CMP, PHOS, MG ####[address] [address] [facility] [[email or web address]] Phosphoruson 03-12-2024 Phosphate [Mass/Vol] 2.5 mg/dL Normal 2.5-4.5 [facility] Comment on above: Performed By: #### C BC, CMP, PHOS, MG ####[place] [id number] [facility] [[email or web address]] Complete Blood Count Auto Di ffon 03-11-2024 Basophils (Bld) [#/Vol] 0.1 10*3/uL Normal 0.0-0.2 [facility] Comment on above: Result Comment: PERF ORMED BY:[address] [place] [phone] MEDICAL DIRECTORCLIFFORD LOBATO M.D. Performed By: #### C BC MG, PHOS, CMP ####[address] Basophils/100 WBC (Bld) 0.6 % Normal . [facility] Comment on above: Performed By: #### C BC, MG, PHOS, CMP ####[address] Eosinophils (Bld) [#/Vol] 0.2 10*3/uL Normal 0.0-0.45 [facility] Comment on above: Performed By: #### C BC MG, PHOS, CMP ####[address] Eosinophils/100 WBC (Bld) 2.7 % Normal . [facility] Comment on above: Performed By: #### C BC, MG, PHOS, CMP ####[address] Erythrocyte distribution width (RBC) [Ratio] 24.0 % High 12.0-14.8 [facility] Comment on above: Performed By: #### C BC, MG, PHOS, CMP ####[address] Hematocrit (Bld) [Volume fraction] 27.6 % Low 38.8-50.0 [facility] Comment on above: Performed By: #### C BC, MG, PHOS, CMP ####[address] Hemoglobin (Bld) [Mass/Vol] 8.8 g/dL Low 13.0-17.0 [facility] Comment on above: Performed By: #### C BC, MG, PHOS, CMP ####[address] Lymphocytes (Bld) [#/Vol] 0.5 10*3/uL Low 1.00-4.8 [facility] Comment on above: Performed By: #### C BC, MG, PHOS, CMP ####[address] Lymphocytes/100 WBC (Bld) 5.3 % Normal . [facility] Comment on above: Performed By: #### C BC, MG, PHOS, CMP ####[address] MCH (RBC) [Entitic mass] 23.1 pg Low 27.5-35.2 [facility] Comment on above: Performed By: #### C BC, MG, PHOS, CMP ####[address] MCV (RBC) [Entitic vol] 72.1 fL Low 83.5-101 [facility] Comment on above: Performed By: #### C BC, MG, PHOS, CMP ####[address] Mean Corpuscular HGB Conc 32.0 g/dL Low 32.5-35.6 [facility] Comment on above: Performed By: #### C BC, MG, PHOS, CMP ####[address] Monocytes (Bld) [#/Vol] 0.9 10*3/uL High 0.0-0.8 [facility] Comment on above: Performed By: #### C BC, MG, PHOS, CMP ####[address] Monocytes/100 WBC (Bld) 10.5 % Normal . [facility] Comment on above: Performed By: #### C BC, MG, PHOS, CMP ####[address] Neutrophils (Bld) [#/Vol] 7.3 10*3/uL Normal 1.8-7.7 [facility] Comment on above: Performed By: #### C BC, MG, PHOS, CMP ####[address] Neutrophils/100 WBC (Bld) 80.9 % Normal . [facility] Comment on above: Performed By: #### C BC, MG, PHOS, CMP ####[address] NRBC% 0.0 /100{WBC} Normal 0-0.5 [facility] Comment on above: Performed By: #### C BC, MG, PHOS, CMP ####[address] Platelet mean volume (Bld) [Entitic vol] 8.8 fL Normal 6.6-10.1 [facility] Comment on above: Performed By: #### C BC, MG, PHOS, CMP ####[address] Platelets (Bld) [#/Vol] 201 10*3/uL Normal 150-450 [facility] Comment on above: Performed By: #### C BC, MG, PHOS, CMP ####[address] RBC (Bld) [#/Vol] 3.83 10*6/uL Low 3.90-5.60 [facility] Comment on above: Performed By: #### C BC, MG, PHOS, CMP ####[address] WBC (Bld) [#/Vol] 9.0 10*3/uL Normal 4.1-10.5 [facility] Comment on above: Performed By: #### C BC, MG, PHOS, CMP ####[address] Comprehensive Metabolic Pane guy 03-11-2024 Albumin [Mass/Vol] 3.5 g/dL Normal 3.5-5.7 [facility] Comment on above: Performed By: #### C BC, MG, PHOS, CMP ####[place] [address] [place] Albumin/Globulin [Mass ratio] 0.9 {ratio} Normal [facility] Comment on above: Performed By: #### C BC, MG, PHOS, CMP ####[address] ALP [Catalytic activity/Vol] 367 U/L High 34-104 [facility] Comment on above: Performed By: #### C BC, MG, PHOS, CMP ####[address] ALT [Catalytic activity/Vol] 59 U/L High 7-52 [facility] Comment on above: Performed By: #### C BC, MG, PHOS, CMP ####[address] Anion gap [Moles/Vol] 12.6 mmol/L Normal 6.0-15.0 [facility] Comment on above: Performed By: #### C BC, MG, PHOS, CMP ####[address] AST [Catalytic activity/Vol] 52 U/L High 13-39 [facility] Comment on above: Performed By: #### C BC, MG, PHOS, CMP ####[address] Bilirubin [Mass/Vol] 1.5 mg/dL High 0.3-1.0 [facility] Comment on above: Result Comment: Samp les from patients who have taken Naproxen have shown spurious elevation in Total Bilirubin levels. A metabolite of Naproxen, O-desmethylnaproxen, has been shown to interfere with the Jendrannaleeik-Grof method for measuring Total Bilirubin. Performed By: #### C BC, MG, PHOS, CMP ####[address] Calcium [Mass/Vol] 8.8 mg/dL Normal 8.6-10.3 [facility] Comment on above: Performed By: #### C BC, MG, PHOS, CMP ####[place] [id number] Chloride [Moles/Vol] 104 mmol/L Normal 98-107 [facility] Comment on above: Performed By: #### C BC, MG, PHOS, CMP ####[address] CO2 [Moles/Vol] 23.0 mmol/L Normal 21.0-31.0 [facility] Comment on above: Performed By: #### C BC, MG, PHOS, CMP ####[address] Creatinine [Mass/Vol] 1.70 mg/dL High 0.70-1.30 [facility] Comment on above: Performed By: #### C BC, MG, PHOS, CMP ####[address] Creatinine Clr Calc Pharmacy 50.45 Normal [facility] Comment on above: Performed By: #### C BC, MG, PHOS, CMP ####[address] GFR/1.73 sq M.predicted MDRD (S/P/Bld) [Vol rate/Area] 46.151 mL/min/{1.73_m2} Normal [facility] Comment on above: Performed By: #### C BC, MG, PHOS, CMP ####[address] Globulin (S) [Mass/Vol] 3.7 g/dL Normal [facility] Comment on above: Performed By: #### C BC, MG, PHOS, CMP ####[address] Glucose [Mass/Vol] 150 mg/dL High 70-100 [facility] Comment on above: Result Comment: [place] Glucose Reference Range is dependent on time and content of last meal. Glucose of more than 200 mg/dL in a nonstressed, ambulatory subject supports the diagnosis of Diabetes Mellitus. ADA recommended reference range Performed By: #### C BC, MG, PHOS, CMP ####[place] [id number] [facility] [[email or web address]] Potassium [Moles/Vol] 3.6 mmol/L Normal 3.5-5.1 [facility] Comment on above: Performed By: #### C BC, MG, PHOS, CMP ####[place] [id number] [facility] [[email or web address]] Protein [Mass/Vol] 7.2 g/dL Normal 6.4-8.9 [facility] Comment on above: Performed By: #### C BC, MG, PHOS, CMP ####[address] Sodium [Moles/Vol] 136 mmol/L Normal 136-145 [facility] Comment on above: Performed By: #### C BC, MG, PHOS, CMP ####[address] Urea nitrogen [Mass/Vol] 17 mg/dL Normal 7-25 [facility] Comment on above: Performed By: #### C BC, MG, PHOS, CMP ####[address] Glucose Poct Glucometerson 1 Glucose [Mass/Vol] 193 mg/dL Normal [facility] Comment on above: Result Comment: [facility] Glucose Reference Range is dependent on time and content of last meal. Glucose of more than 200 mg/dL in a nonstressed, ambulatory subject supports the diagnosis of Diabetes Mellitus.PERFORMED BY:[place] [address] [address] [place], [place] [phone] MEDICAL DIRECTORCLIFFORD LOBATO M.D. Performed By: #### G NELI ####Point of Care testing, Commemt1 Glu2: Cleaned Meter Normal [facility] Comment on above: Result Comment: PERF ORMED BY:[place] [address] [address] [place], [place] [phone] MEDICAL DIRECTORJIANLAN SUN M.D. Performed By: #### G LULS ####Point of Care testing, Glucose [Mass/Vol] 156 mg/dL Normal [facility] Comment on above: Result Comment: [place] om Glucose Reference Range is dependent on time and content of last meal. Glucose of more than 200 mg/dL in a nonstressed, ambulatory subject supports the diagnosis of Diabetes Mellitus. Performed By: #### G LULS ####Point of Care testing, Commemt1 Glu2: Cleaned Meter Normal [facility] Comment on above: Result Comment: PERF ORMED BY:[place] [address] [address] [place], [place] [phone] MEDICAL DIRECTORCLIFFORD LOBATO M.D. Performed By: #### G LULS ####Point of Care testing, Glucose [Mass/Vol] 185 mg/dL Normal [facility] Comment on above: Result Comment: [place] om Glucose Reference Range is dependent on time and content of last meal. Glucose of more than 200 mg/dL in a nonstressed, ambulatory subject supports the diagnosis of Diabetes Mellitus. Performed By: #### G LULS ####Point of Care testing, Glucose [Mass/Vol] 178 mg/dL Normal [facility] Comment on above: Result Comment: [place] om Glucose Reference Range is dependent on time and content of last meal. Glucose of more than 200 mg/dL in a nonstressed, ambulatory subject supports the diagnosis of Diabetes Mellitus.PERFORMED BY:[place] [address] [address] [place], [place] [phone] MEDICAL DIRECTORCLIFFORD LOBATO M.D. Performed By: #### G LULS ####Point of Care testing, Hep C Ab wRfx to Qnt PCRon 1 Hepatitis C Virus Antibody Non-Reactive Normal Non Reactive [facility] Comment on above: Performed By: #### H CV RX PCR ####[facility] , Interpretation Hepatitis C Comment Normal . [facility] Comment on above: Result Comment: Not infected with HCV unless early or acute infection is suspected (which may be delayed in an immunocompromised individual), or other evidence exists to indicate HCV infection. Performed at: - [facility] [id number] Outside Cutter Hand: Uriel Borrero PhD, Phone: [phone] BY:[address] [place], [place] [phone] MEDICAL DIRECTORCLIFFORD LOBATO M.D. Performed By: #### H CV RX PCR ####[facility] , Hepatitis C virus IgG Ab [Pr esence] in Serum or Plasma by ImmunoassayOrdered By: Mike Burleson on 03-11-2024 HCV IgG IA Ql Non-Reactive Non Reactive [facility] HCV IgG IA Ql Hepatitis C virus Ig G Ab [Presence] in Serum or Plasma by Immunoassay Non Reactive [facility] MR abdomen wo/w conon 2023 MR abdomen wo/w con Normal [facility] Magnesiumon 03-11-2024 Magnesium [Mass/Vol] 1.8 mg/dL Low 1.9-2.7 [facility] [facility] Comment on above: Result Comment: PERF ORMED BY:[address] [place], [place] [phone] MEDICAL DIRECTORCLIFFORD LOBATO M.D. Performed By: #### C BC, MG, PHOS, CMP ####[facility] [id number] [place] [address] No Panel InformationOrdered By: João Powell on 03-11-2024 Bedside Glucose Comment Glu2: cleaned meter [facility] Glu2: cleaned meter [facility] No Panel InformationOrdered By: Mike Burleson on 03-11-2024 Hepatitis C Interpretation Comment . [facility] Comment on above: Not infected with HC V unless early or acute infection issuspected (which may be delayed in an immunocompromisedindividual), or other evidence exists to indicate HCVinfection.Performed at: - [facility] [id number] Director: Ureil Borrero PhD, Phone: [phone] Comment . [facility] Phosphoruson 03-11-2024 Phosphate [Mass/Vol] 3.4 mg/dL Normal 2.5-4.5 [facility] Comment on above: Performed By: #### C BC, MG, PHOS, CMP ####[address] US liveron 03-11-2024 US liver Normal [facility] Complete Blood Count Auto Di ffon 03-10-2024 Basophils (Bld) [#/Vol] 0.0 10*3/uL Normal 0.0-0.2 [facility] Comment on above: Result Comment: PERF ORMED BY:[address] [place], [place] [phone] MEDICAL DIRECTORCLIFFORD LOBATO M.D. Performed By: #### C MP, MG, PHOS, GGT, CBC ####[address] Basophils/100 WBC (Bld) 0.3 % Normal . [facility] Comment on above: Performed By: #### C MP, MG, PHOS, GGT, CBC ####[address] Eosinophils (Bld) [#/Vol] 0.1 10*3/uL Normal 0.0-0.45 [facility] Comment on above: Performed By: #### C MP, MG, PHOS, GGT, CBC ####[address] Eosinophils/100 WBC (Bld) 0.8 % Normal . [facility] Comment on above: Performed By: #### C MP, MG, PHOS, GGT, CBC ####[address] Erythrocyte distribution width (RBC) [Ratio] 23.4 % High 12.0-14.8 [facility] Comment on above: Performed By: #### C MP, MG, PHOS, GGT, CBC ####[address] Hematocrit (Bld) [Volume fraction] 25.8 % Low 38.8-50.0 [facility] Comment on above: Performed By: #### C MP, MG, PHOS, GGT, CBC ####[address] Hemoglobin (Bld) [Mass/Vol] 8.4 g/dL Low 13.0-17.0 [facility] Comment on above: Performed By: #### C MP, MG, PHOS, GGT, CBC ####[address] Lymphocytes (Bld) [#/Vol] 0.7 10*3/uL Low 1.00-4.8 [facility] Comment on above: Performed By: #### C MP, MG, PHOS, GGT, CBC ####[address] Lymphocytes/100 WBC (Bld) 4.9 % Normal . [facility] Comment on above: Performed By: #### C MP, MG, PHOS, GGT, CBC ####[address] MCH (RBC) [Entitic mass] 23.1 pg Low 27.5-35.2 [facility] Comment on above: Performed By: #### C MP, MG, PHOS, GGT, CBC ####[address] MCV (RBC) [Entitic vol] 71.2 fL Low 83.5-101 [facility] Comment on above: Performed By: #### C MP, MG, PHOS, GGT, CBC ####[address] Mean Corpuscular HGB Conc 32.5 g/dL Normal 32.5-35.6 [facility] Comment on above: Performed By: #### C MP, MG, PHOS, GGT, CBC ####[address] Monocytes (Bld) [#/Vol] 1.5 10*3/uL High 0.0-0.8 [facility] Comment on above: Performed By: #### C MP, MG, PHOS, GGT, CBC ####[address] Monocytes/100 WBC (Bld) 10.6 % Normal . [facility] Comment on above: Performed By: #### C MP, MG, PHOS, GGT, CBC ####[address] Neutrophils (Bld) [#/Vol] 11.4 10*3/uL High 1.8-7.7 [facility] Comment on above: Performed By: #### C MP, MG, PHOS, GGT, CBC ####[address] Neutrophils/100 WBC (Bld) 83.4 % Normal . [facility] Comment on above: Performed By: #### C MP, MG, PHOS, GGT, CBC ####[address] NRBC% 0.2 /100{WBC} Normal 0-0.5 [facility] Comment on above: Performed By: #### C MP, MG, PHOS, GGT, CBC ####[address] Platelet mean volume (Bld) [Entitic vol] 8.9 fL Normal 6.6-10.1 [facility] Comment on above: Performed By: #### C MP, MG, PHOS, GGT, CBC ####[address] Platelets (Bld) [#/Vol] 205 10*3/uL Normal 150-450 [facility] Comment on above: Performed By: #### C MP, MG, PHOS, GGT, CBC ####[address] RBC (Bld) [#/Vol] 3.62 10*6/uL Low 3.90-5.60 [facility] Comment on above: Performed By: #### C MP, MG, PHOS, GGT, CBC ####[address] WBC (Bld) [#/Vol] 13.7 10*3/uL High 4.1-10.5 [facility] Comment on above: Performed By: #### C MP, MG, PHOS, GGT, CBC ####[address] Comprehensive Metabolic Pane guy 03-10-2024 Albumin [Mass/Vol] 3.4 g/dL Low 3.5-5.7 [facility] Comment on above: Performed By: #### C MP, MG, PHOS, GGT, CBC ####[address] Albumin/Globulin [Mass ratio] 1.0 {ratio} Normal [facility] Comment on above: Performed By: #### C MP, MG, PHOS, GGT, CBC ####[address] ALP [Catalytic activity/Vol] 426 U/L High 34-104 [facility] Comment on above: Performed By: #### C MP, MG, PHOS, GGT, CBC ####[address] ALT [Catalytic activity/Vol] 78 U/L High 7-52 [facility] Comment on above: Performed By: #### C MP, MG, PHOS, GGT, CBC ####[address] Anion gap [Moles/Vol] 14.5 mmol/L Normal 6.0-15.0 [facility] Comment on above: Performed By: #### C MP, MG, PHOS, GGT, CBC ####[address] AST [Catalytic activity/Vol] 92 U/L High 13-39 [facility] Comment on above: Performed By: #### C MP, MG, PHOS, GGT, CBC ####[place] [id number] [address] Bilirubin [Mass/Vol] 2.2 mg/dL High 0.3-1.0 [facility] Comment on above: Result Comment: Samp les from patients who have taken Naproxen have shown spurious elevation in Total Bilirubin levels. A metabolite of Naproxen, O-desmethylnaproxen, has been shown to interfere with the Jendrassik-Grof method for measuring Total Bilirubin. Performed By: #### C MP, MG, PHOS, GGT, CBC ####[address] Calcium [Mass/Vol] 8.3 mg/dL Low 8.6-10.3 [facility] Comment on above: Performed By: #### C MP, MG, PHOS, GGT, CBC ####[address] Chloride [Moles/Vol] 102 mmol/L Normal 98-107 [facility] Comment on above: Performed By: #### C MP, MG, PHOS, GGT, CBC ####[address] CO2 [Moles/Vol] 21.8 mmol/L Normal 21.0-31.0 [facility] Comment on above: Performed By: #### C MP, MG, PHOS, GGT, CBC ####[address] Creatinine [Mass/Vol] 1.81 mg/dL High 0.70-1.30 [facility] Comment on above: Performed By: #### C MP, MG, PHOS, GGT, CBC ####[address] Creatinine Clr Calc Pharmacy 47.38 Normal [facility] Comment on above: Performed By: #### C MP, MG, PHOS, GGT, CBC ####[address] GFR/1.73 sq M.predicted MDRD (S/P/Bld) [Vol rate/Area] 42.806 mL/min/{1.73_m2} Normal [facility] Comment on above: Performed By: #### C MP, MG, PHOS, GGT, CBC ####[address] Globulin (S) [Mass/Vol] 3.3 g/dL Normal [facility] Comment on above: Performed By: #### C MP, MG, PHOS, GGT, CBC ####[address] Glucose [Mass/Vol] 141 mg/dL High 70-100 [facility] Comment on above: Result Comment: [facility] Glucose Reference Range is dependent on time and content of last meal. Glucose of more than 200 mg/dL in a nonstressed, ambulatory subject supports the diagnosis of Diabetes Mellitus. ADA recommended reference range Performed By: #### C MP, MG, PHOS, GGT, CBC ####[address] Potassium [Moles/Vol] 3.3 mmol/L Low 3.5-5.1 [facility] Comment on above: Performed By: #### C MP, MG, PHOS, GGT, CBC ####[address] Protein [Mass/Vol] 6.7 g/dL Normal 6.4-8.9 [facility] Comment on above: Performed By: #### C MP, MG, PHOS, GGT, CBC ####[address] Sodium [Moles/Vol] 135 mmol/L Significant change down 136-145 [facility] Comment on above: Performed By: #### C MP, MG, PHOS, GGT, CBC ####[address] Urea nitrogen [Mass/Vol] 16 mg/dL Normal 7-25 [facility] Comment on above: Performed By: #### C MP, MG, PHOS, GGT, CBC ####[facility] [id number] [place] [address] [facility] [[email or web address]] Gamma Glutamyl Transpeptidas keyla 03-10-2024 Amylase [Catalytic activity/Vol] 176 U/L [facility] Comment on above: Result Comment: PERF ORMED BY:[place] [address] [address] [place], [place] [phone] MEDICAL DIRECTORCLIFFORD LOBATO M.D. Performed By: #### C MP, MG, PHOS, GGT, CBC ####[facility] [id number] [place] [address] [facility] [[email or web address]] Gamma glutamyl transferase [ Enzymatic activity/volume] in Serum or PlasmaOrdered By: João Powell on 03-10-2024 Gamma glutamyl transferase [Catalytic activity/Vol] 176 U/L High [facility] Gamma glutamyl transferase [Catalytic activity/Vol] Gamma glutamyl transferase [Enzymatic activity/volume] in Serum or Plasma [facility] Glucose Poct Glucometerson 1 Commemt1 Glu2: Cleaned Meter Normal [facility] Comment on above: Result Comment: PERF ORMED BY:[address] [place], [place] [phone] MEDICAL DIRECTORCLIFFORD LOBATO M.D. Performed By: #### G LULS ####Point of Care testing, Glucose [Mass/Vol] 133 mg/dL Normal [facility] Comment on above: Result Comment: [facility] Glucose Reference Range is dependent on time and content of last meal. Glucose of more than 200 mg/dL in a nonstressed, ambulatory subject supports the diagnosis of Diabetes Mellitus. Performed By: #### G LULS ####Point of Care testing, Commemt1 Glu2: Cleaned Meter Normal [facility] Comment on above: Result Comment: PERF ORMED BY:[place] [address] [address] [place], [place] [id number] MEDICAL DIRECTORCLIFFORD LOBATO M.D. Performed By: #### G LULS ####Point of Care testing, Glucose [Mass/Vol] 294 mg/dL Normal [facility] Comment on above: Result Comment: [facility] Glucose Reference Range is dependent on time and content of last meal. Glucose of more than 200 mg/dL in a nonstressed, ambulatory subject supports the diagnosis of Diabetes Mellitus. Performed By: #### G LULS ####Point of Care testing, Glucose [Mass/Vol] 352 mg/dL Normal [facility] Comment on above: Result Comment: [facility] Glucose Reference Range is dependent on time and content of last meal. Glucose of more than 200 mg/dL in a nonstressed, ambulatory subject supports the diagnosis of Diabetes Mellitus.PERFORMED BY:[address] [place], [place] [phone] MEDICAL DIRECTORCLIFFORD LOBATO M.D. Performed By: #### G LULS ####Point of Care testing, Glucose [Mass/Vol] 174 mg/dL Normal [facility] Comment on above: Result Comment: [facility] Glucose Reference Range is dependent on time and content of last meal. Glucose of more than 200 mg/dL in a nonstressed, ambulatory subject supports the diagnosis of Diabetes Mellitus.PERFORMED BY:[address] [place], [place] [phone] MEDICAL BRISA LOBATO M.D. Performed By: #### G LULS ####Point of Care testing, Magnesiumon 03-10-2024 Magnesium [Mass/Vol] 1.4 mg/dL Low 1.9-2.7 [facility] Comment on above: Result Comment: PERF ORMED BY:[address] [place], [place] [phone] MEDICAL DIRECTORCLIFFORD LOBATO M.D. Performed By: #### C MP, MG, PHOS, GGT, CBC ####[address] [address] [facility] [[email or web address]] O-jdjdqs-T-Aspartate IgG, Se gladis 03-10-2024 N-wtptov-BFrvyafyxm IgG, Serum Negative Normal Negative [facility] Comment on above: Result Comment: This test was developed and its performance characteristics determined by [employer]. It has not been cleared or approved by the Food and Drug Administration. The [facility]-sponsored ExTINGUISH Trial (activity and safety of Inebilizumab in anti-NMDAR encephalitis) is actively recruiting patients. You may consider enrolling your patient in the clinical trial if the result of this test is positive. To learn more, or to refer your patient, call [phone] 7ZMDIN5 ([phone], study hotline) or see ClinicalTrials.gov (study ID, [id number]). Performed at: [facility] [id number] Outside Cutter Hand: Chrissy Wong MD, Phone: [phone] BY:[place] [address] [address] [place], [place] [phone] MEDICAL DIRECTORCLIFFORD LOBATO M.D. Performed By: #### N MDA IGG SERUM ####[facility] , No Panel InformationOrdered By: Job James on 03-10-2024 J-Bpuzwc-M-Aspartate Recept IgG Ab Negative Negative [facility] Comment on above: This test was develo ped and its performance characteristicsdetermined by [employer]. It has not been cleared orapproved by the Food and Drug Administration.The [facility]-sponsored ExTINGUISH Trial (activity and safety ofInebilizumab in anti-NMDAR encephalitis) is activelyrecruiting patients. You may consider enrolling yourpatient in the clinical trial if the result of this test ispositive. To learn more, or to refer your patient, call 983-6H9XHHQS0 ([phone], study hotline) or seeinicalTrials.gov (study ID, [id number]).Performed at: [facility] [address] [id number] Director: Chrissy Wong MD, Phone: [phone] Negative Negative [facility] Phosphoruson 03-10-2024 Phosphate [Mass/Vol] 3.1 mg/dL Normal 2.5-4.5 [facility] Comment on above: Performed By: #### C MP, MG, PHOS, GGT, CBC ####[place] [id number] [facility] [[email or web address]] Complete Blood Count Auto Di ffon 03-09-2024 Basophils (Bld) [#/Vol] 0.1 10*3/uL Normal 0.0-0.2 [facility] Comment on above: Result Comment: PERF ORMED BY:[address] [place], [place] [phone] MEDICAL DIRECTORCLIFFORD LOBATO M.D. Performed By: #### C BC, CMP, MG, PHOS ####[address] Basophils/100 WBC (Bld) 1.2 % Normal . [facility] Comment on above: Performed By: #### C BC, CMP, MG, PHOS ####[address] Eosinophils (Bld) [#/Vol] 0.2 10*3/uL Normal 0.0-0.45 [facility] Comment on above: Performed By: #### C BC, CMP, MG, PHOS ####[address] Eosinophils/100 WBC (Bld) 2.5 % Normal . [facility] Comment on above: Performed By: #### C BC, CMP, MG, PHOS ####[address] Erythrocyte distribution width (RBC) [Ratio] 21.9 % High 12.0-14.8 [facility] Comment on above: Performed By: #### C BC, CMP, MG, PHOS ####[address] Hematocrit (Bld) [Volume fraction] 27.8 % Low 38.8-50.0 [facility] Comment on above: Performed By: #### C BC, CMP, MG, PHOS ####[address] Hemoglobin (Bld) [Mass/Vol] 8.9 g/dL Low 13.0-17.0 [facility] Comment on above: Performed By: #### C BC, CMP, MG, PHOS ####[address] Lymphocytes (Bld) [#/Vol] 1.8 10*3/uL Normal 1.00-4.8 [facility] Comment on above: Performed By: #### C BC, CMP, MG, PHOS ####[address] Lymphocytes/100 WBC (Bld) 20.9 % Normal . [facility] Comment on above: Performed By: #### C BC, CMP, MG, PHOS ####[address] MCH (RBC) [Entitic mass] 22.7 pg Low 27.5-35.2 [facility] Comment on above: Performed By: #### C BC, CMP, MG, PHOS ####[address] MCV (RBC) [Entitic vol] 70.7 fL Low 83.5-101 [facility] Comment on above: Performed By: #### C BC, CMP, MG, PHOS ####[address] Mean Corpuscular HGB Conc 32.1 g/dL Low 32.5-35.6 [facility] Comment on above: Performed By: #### C BC, CMP, MG, PHOS ####[address] Monocytes (Bld) [#/Vol] 1.0 10*3/uL High 0.0-0.8 [facility] Comment on above: Performed By: #### C BC, CMP, MG, PHOS ####[address] Monocytes/100 WBC (Bld) 10.9 % Normal . [facility] Comment on above: Performed By: #### C BC, CMP, MG, PHOS ####[address] Neutrophils (Bld) [#/Vol] 5.6 10*3/uL Normal 1.8-7.7 [facility] Comment on above: Performed By: #### C BC, CMP, MG, PHOS ####[place] [id number] [facility] [[email or web address]] Neutrophils/100 WBC (Bld) 64.5 % Normal . [facility] Comment on above: Performed By: #### C BC, CMP, MG, PHOS ####[address] NRBC% 0.2 /100{WBC} Normal 0-0.5 [facility] Comment on above: Performed By: #### C BC, CMP, MG, PHOS ####[address] Platelet mean volume (Bld) [Entitic vol] 8.7 fL Normal 6.6-10.1 [facility] Comment on above: Performed By: #### C BC, CMP, MG, PHOS ####[address] Platelets (Bld) [#/Vol] 265 10*3/uL Normal 150-450 [facility] Comment on above: Performed By: #### C BC, CMP, MG, PHOS ####[address] RBC (Bld) [#/Vol] 3.93 10*6/uL Normal 3.90-5.60 [facility] Comment on above: Performed By: #### C BC, CMP, MG, PHOS ####[address] WBC (Bld) [#/Vol] 8.8 10*3/uL Normal 4.1-10.5 [facility] Comment on above: Performed By: #### C BC, CMP, MG, PHOS ####[address] [place] [address] [facility] [[email or web address]] Comprehensive Metabolic Pane guy 03-09-2024 Albumin [Mass/Vol] 3.5 g/dL Normal 3.5-5.7 [facility] Comment on above: Performed By: #### C BC, CMP, MG, PHOS ####[address] [address] [facility] [[email or web address]] Albumin/Globulin [Mass ratio] 1.0 {ratio} Normal [facility] Comment on above: Performed By: #### C BC, CMP, MG, PHOS ####[address] [address] [facility] [[email or web address]] ALP [Catalytic activity/Vol] 110 U/L High 34-104 [facility] Comment on above: Performed By: #### C BC, CMP, MG, PHOS ####[address] [address] [facility] [[email or web address]] ALT [Catalytic activity/Vol] 10 U/L Normal 7-52 [facility] Comment on above: Performed By: #### C BC, CMP, MG, PHOS ####[place] [id number] [facility] [[email or web address]] Anion gap [Moles/Vol] 14.9 mmol/L Normal 6.0-15.0 [facility] Comment on above: Performed By: #### C BC, CMP, MG, PHOS ####[place] [id number] [facility] [[email or web address]] AST [Catalytic activity/Vol] 14 U/L Normal 13-39 [facility] Comment on above: Performed By: #### C BC, CMP, MG, PHOS ####[address] [address] [facility] [[email or web address]] Bilirubin [Mass/Vol] 0.5 mg/dL Normal 0.3-1.0 [facility] Comment on above: Performed By: #### C BC, CMP, MG, PHOS ####[address] [address] [facility] [[email or web address]] Calcium [Mass/Vol] 9.0 mg/dL Normal 8.6-10.3 [facility] Comment on above: Performed By: #### C BC, CMP, MG, PHOS ####[address] Chloride [Moles/Vol] 110 mmol/L High 98-107 [facility] Comment on above: Performed By: #### C BC, CMP, MG, PHOS ####[address] CO2 [Moles/Vol] 20.8 mmol/L Low 21.0-31.0 [facility] Comment on above: Performed By: #### C BC, CMP, MG, PHOS ####[address] Creatinine [Mass/Vol] 1.80 mg/dL High 0.70-1.30 [facility] Comment on above: Performed By: #### C BC, CMP, MG, PHOS ####[address] Creatinine Clr Calc Pharmacy 47.64 Normal [facility] Comment on above: Performed By: #### C BC, CMP, MG, PHOS ####[address] GFR/1.73 sq M.predicted MDRD (S/P/Bld) [Vol rate/Area] 43.092 mL/min/{1.73_m2} Normal [facility] Comment on above: Performed By: #### C BC, CMP, MG, PHOS ####[address] Globulin (S) [Mass/Vol] 3.5 g/dL Normal [facility] Comment on above: Performed By: #### C BC, CMP, MG, PHOS ####[address] Glucose [Mass/Vol] 91 mg/dL Normal 70-100 [facility] Comment on above: Result Comment: [facility] Glucose Reference Range is dependent on time and content of last meal. Glucose of more than 200 mg/dL in a nonstressed, ambulatory subject supports the diagnosis of Diabetes Mellitus. ADA recommended reference range Performed By: #### C BC, CMP, MG, PHOS ####[address] Potassium [Moles/Vol] 3.7 mmol/L Normal 3.5-5.1 [facility] Comment on above: Performed By: #### C BC, CMP, MG, PHOS ####[address] Protein [Mass/Vol] 7.0 g/dL Normal 6.4-8.9 [facility] Comment on above: Performed By: #### C BC, CMP, MG, PHOS ####[address] Sodium [Moles/Vol] 142 mmol/L Normal 136-145 [facility] Comment on above: Performed By: #### C BC, CMP, MG, PHOS ####[address] Urea nitrogen [Mass/Vol] 19 mg/dL Normal 7-25 [facility] Comment on above: Performed By: #### C BC, CMP, MG, PHOS ####[address] Glucose Poct Glucometerson 1 Glucose [Mass/Vol] 386 mg/dL Normal [facility] Comment on above: Result Comment: [facility] Glucose Reference Range is dependent on time and content of last meal. Glucose of more than 200 mg/dL in a nonstressed, ambulatory subject supports the diagnosis of Diabetes Mellitus.PERFORMED BY:[place] [address] [address] [place], [place] [phone] MEDICAL DIRECTORCLIFFORD LOBATO M.D. Performed By: #### G LUYUNG ####Point of Care testing, Commemt1 Glu2: Cleaned Meter Normal [facility] Comment on above: Result Comment: PERF ORMED BY:[place] [address] [address] [place] [id number] MEDICAL DIRECTORCLIFFORD LOBATO M.D. Performed By: #### G LULS ####Point of Care testing, Glucose [Mass/Vol] 128 mg/dL Normal [facility] Comment on above: Result Comment: [facility] Glucose Reference Range is dependent on time and content of last meal. Glucose of more than 200 mg/dL in a nonstressed, ambulatory subject supports the diagnosis of Diabetes Mellitus. Performed By: #### G LULS ####Point of Care testing, Glucose [Mass/Vol] 119 mg/dL Normal [facility] Comment on above: Result Comment: [facility] Glucose Reference Range is dependent on time and content of last meal. Glucose of more than 200 mg/dL in a nonstressed, ambulatory subject supports the diagnosis of Diabetes Mellitus.PERFORMED BY:[place] [address] [address] [place], [place] [id number] MEDICAL DIRECTORCLIFFORD LOBATO M.D. Performed By: #### G LULS ####Point of Care testing, Magnesiumon 03-09-2024 Magnesium [Mass/Vol] 1.5 mg/dL Low 1.9-2.7 [facility] Comment on above: Result Comment: PERF ORMED BY:[place] [address] [address] [place], [place] [phone] MEDICAL DIRECTORCLIFFORD LOBATO M.D. Performed By: #### C BC, CMP, MG, PHOS ####[place] [id number] [facility] [[email or web address]] Phosphoruson 03-09-2024 Phosphate [Mass/Vol] 3.1 mg/dL Normal 2.5-4.5 [facility] Comment on above: Performed By: #### C BC, CMP, MG, PHOS ####[address] US renal BIon 03-09-2024 US renal BI Normal [facility] XR elbow LT 2Von 03-09-2024 XR elbow LT 2V Normal [facility] Activated partial thrombopla stin time (aPTT) in platelet poor plasma by coagulation aOrdered By: Bonilla Rubin on 03-08-2024 aPTT Coag (PPP) [Time] 29.6 s 25.1-36.5 [facility] Comment on above: A hematocrit value g reater than 55% may lead to inaccurate results in coagulation testing. Patients having hematocrit values >55% require a special collection tube for coagulation studies. Please contact the laboratory at [phone] for redraw instructions. Alanine aminotransferase [En zymatic activity/volume] in Serum or PlasmaOrdered By: Bonilla Rubin on 03-08-2024 ALT [Catalytic activity/Vol] 13 U/L Normal 7-52 [facility] Comment on above: Performed By: #### P TT, HS TROP, PT, CMP, CK, CBC ####[address] [address] [facility] [[email or web address]] Albumin [Mass/volume] in Ser um or Plasma by Bromocresol green (BCG) dye binding methoOrdered By: Bonilla Rubin on 03-08-2024 Albumin BCG dye [Mass/Vol] 3.8 g/dL 3.5-5.7 [facility] Alkaline phosphatase [Enzyma tic activity/volume] in Serum or PlasmaOrdered By: Bonilla Rubin on 03-08-2024 ALP [Catalytic activity/Vol] 116 U/L High 34-104 [facility] Comment on above: Performed By: #### P TT, HS TROP, PT, CMP, CK, CBC ####[address] [address] [facility] [[email or web address]] Ammonia [Moles/volume] in Pl asmaOrdered By: João Powell on 03-08-2024 Ammonia (P) [Moles/Vol] 33 umol/L Normal 11-35 [facility] Comment on above: Result Comment: PERF ORMED BY:[address] [place], [place] [phone] MEDICAL DIRECTORCLIFFORD LOBATO M.D. Performed By: #### A MM ####[address] [address] [place] Ammonia (P) [Moles/Vol] Ammonia [Moles/volume] in Plasma 11-35 [facility] Amphetamine Screen Ql (U)Ord ered By: Bonilla Rubin on 03-08-2024 Amphetamines Ql (U) Amphetamines screen Negativ e [facility] Amphetamines Ql (U) Negative Negative [facility] Appearance of UrineOrdered B y: Bonilla Rubin on 03-08-2024 Appearance (U) Urine appearance Clear [facility] Arterial Blood Gason 024 ABG Base Excess -1.4 mmol/L Normal -3.0-3.0 [facility] Comment on above: Performed By: #### A BG ####Point of Care testing, ABG Frac Inspired O2 21 % Normal [facility] Comment on above: Performed By: #### A BG ####Point of Care testing, ABG Oxygen Content 6.4 mmol/L Low 6.6-9.7 [facility] Comment on above: Performed By: #### A BG ####Point of Care testing, ABG Oxygen Saturation 97.1 % Normal 95.0-100.0 [facility] Comment on above: Performed By: #### A BG ####Point of Care testing, ABG PCO2 33.3 mm[Hg] Low 35.0-45.0 [facility] Comment on above: Performed By: #### A BG ####Point of Care testing, ABG PH 7.44 Normal 7.35-7.45 [facility] Comment on above: Performed By: #### A BG ####Point of Care testing, ABG PO2 92.6 mm[Hg] Normal 80.0-100.0 [facility] Comment on above: Performed By: #### A BG ####Point of Care testing, Respiratory Critical Normal [facility] Comment on above: Result Comment: Crit ical Value called on: 03/08/2024 at 15:16PERFORMED BY:[place] [place], [place] [phone] MEDICAL DIRECTORCLIFFORD LOBATO M.D. Performed By: #### A BG ####Point of Care testing, VBG Draw Site Left Radial Normal [facility] Comment on above: Performed By: #### A BG ####Point of Care testing, Arterial Blood GasOrdered By : Bonilla Rubin on 03-08-2024 CO2 [Moles/Vol] 23.2 mmol/L Normal 23.0-27.0 [facility] Comment on above: Performed By: #### A BG ####Point of Care testing, HCO3 (Bld) [Moles/Vol] 22.2 mmol/L Low 23.0-29.0 [facility] Comment on above: Performed By: #### A BG ####Point of Care testing, Aspartate aminotransferase [ Enzymatic activity/volume] in Serum or PlasmaOrdered By: Bonilla Rubin on 03-08-2024 AST [Catalytic activity/Vol] 14 U/L Normal 13-39 [facility] Comment on above: Performed By: #### P TT, HS TROP, PT, CMP, CK, CBC ####[address] Automated basophil %Ordered By: Bonilla Rubin on 03-08-2024 Basophils/100 WBC (Bld) 1.0 % Normal . [facility] Comment on above: Performed By: #### P TT, HS TROP, PT, CMP, CK, CBC ####[address] [address] [facility] [[email or web address]] Automated basophil countOrde red By: Bonilla Rubin on 03-08-2024 Basophils (Bld) [#/Vol] 0.1 10*3/uL Normal 0.0-0.2 [facility] Comment on above: Result Comment: PERF ORMED BY:[address] [place], [place] [phone] MEDICAL DIRECTORCLIFFORD LOBATO M.D. Performed By: #### P TT, HS TROP, PT, CMP, CK, CBC ####[address] [address] [facility] [[email or web address]] Automated blood monocyte cou ntOrdered By: Bonilla Rubin on 03-08-2024 Monocytes (Bld) [#/Vol] 1.2 10*3/uL High 0.0-0.8 [facility] Comment on above: Performed By: #### P TT, HS TROP, PT, CMP, CK, CBC ####[address] Automated eosinophil %Ordere d By: Bonilla Rubin on 03-08-2024 Eosinophils/100 WBC (Bld) 3.3 % Normal . [facility] Comment on above: Performed By: #### P TT, HS TROP, PT, CMP, CK, CBC ####[address] Automated eosinophil countOr dered By: Bonilla Rubin on 03-08-2024 Eosinophils (Bld) [#/Vol] 0.3 10*3/uL Normal 0.0-0.45 [facility] Comment on above: Performed By: #### P TT, HS TROP, PT, CMP, CK, CBC ####[address] Automated monocyte %Ordered By: Bonilla Rubin on 03-08-2024 Monocytes/100 WBC (Bld) 13.2 % Normal . [facility] Comment on above: Performed By: #### P TT, HS TROP, PT, CMP, CK, CBC ####[place] [id number] [facility] [[email or web address]] Automated neutrophil %Ordere d By: Bonilla Rubin on 03-08-2024 Neutrophils/100 WBC (Bld) 69.4 % Normal . [facility] Comment on above: Performed By: #### P TT, HS TROP, PT, CMP, CK, CBC ####[place] [id number] [facility] [[email or web address]] Bacterial blood cultureOrder ed By: Bonilla Rubin on 03-08-2024 Bacteria identified Cx Nom (Bld) Bacterial blood culture [facility] Bacteria identified Cx Nom (Bld) Bacterial blood culture [facility] Bacteria identified Cx Nom (Bld) NO GROWTH 5 DAYS [facility] Bacteria identified Cx Nom (Bld) NO GROWTH 5 DAYS [facility] Barbiturates [Presence] in U rine by Screen methodOrdered By: Bonilla Rubin on 03-08-2024 Barbiturates Screen Ql (U) Negative Negative [facility] Barbiturates Screen Ql (U) Barbiturates [Presence] in Urine by Screen method Negative [facility] Benzodiazepines Screen Ql (U )Ordered By: Bonilla Rubin on 03-08-2024 Benzodiazepines Ql (U) Negative Negative [facility] Benzodiazepines Ql (U) Benzodiazepines [Presence] in Urine by Screen method Negative [facility] Benzoylecgonine [Presence] i n Urine by Screen methodOrdered By: Bonilla Rubin on 03-08-2024 Benzoylecgonine Screen Ql (U) Negative Negative [facility] Benzoylecgonine Screen Ql (U) Benzoylecgonine [Presence] in Urine by Screen method Negative [facility] Bilirubin Test strip Ql (U)O rdered By: Bonilla Rubin on 03-08-2024 Bilirubin Ql (U) Negative Negative [facility] Bilirubin Ql (U) Bilirubin.total [Presence] in Urine by Test strip Negative [facility] Bilirubin.total [Mass/volume ] in Serum or PlasmaOrdered By: Bonilla Rubin on 03-08-2024 Bilirubin [Mass/Vol] 0.4 mg/dL Normal 0.3-1.0 [facility] Comment on above: Performed By: #### P TT, HS TROP, PT, CMP, CK, CBC ####[place] [id number] [facility] [[email or web address]] BioFire Not Detectedon 03-08 BioFire Not Detected Not detected Normal Not Detecte [facility] Comment on above: Result Comment: This is a duplicate RP2.1 COVID (PCR) result to be used for statistical tracking purpose only.PERFORMED BY:[address] [place], [place] [phone] MEDICAL DIRECTORCLIFFORD LOBATO M.D. Performed By: #### R QUE PANEL UPP., BIOFIRECOVNOTDE ####[address] [address] [facility] [[email or web address]] Blood Cultureon 03-08-2024 Bacteria identified Cx Nom (Bld) NO GROWTH 5 DAYS PERFORMED BY: [facility] [address] [place] [address] PATHOLOGIST HOUSEKEEPING ROOM INSPECTOR CLIFFORD LOBATO M.D. Normal [facility] Comment on above: Performed By: #### C UBLD, LACTIC ####[place] [id number] [place] [id number] [facility] [[email or web address]] Bacteria identified Cx Nom (Bld) NO GROWTH 5 DAYS PERFORMED BY: [facility] [address] [place] [address] PATHOLOGIST HOUSEKEEPING ROOM INSPECTOR CLIFFORD LOBATO M.D. Normal [facility] Comment on above: Performed By: #### C UBLD, LACTIC ####[place] [id number] [facility] [[email or web address]] COVID-19 Detected/Not Detect edOrdered By: Bonilla Rubin on 03-08-2024 SARS-CoV-2 (COVID-19) RNA NELLY+non-probe Ql (Nph) Not detected Not Detecte [facility] Comment on above: This is a duplicate RP2.1 COVID (PCR) result to be used for statistical tracking purpose only. CT angio headon 03-08-2024 CT angio head Normal [facility] Calcium [Mass/volume] in Ser um or PlasmaOrdered By: Bonilla Rubin on 03-08-2024 Calcium [Mass/Vol] 9.6 mg/dL Normal 8.6-10.3 [facility] Comment on above: Performed By: #### P TT, HS TROP, PT, CMP, CK, CBC ####[place] [id number] [place] [id number] [facility] [[email or web address]] Cannabinoids [Presence] in U rine by Screen methodOrdered By: Bonilla Rubin on 03-08-2024 Cannabinoids Screen Ql (U) Negative Negative [facility] Comment on above: These are unconfirme d results and should not be used for legal purposes. Drug Cut-Off Concentration: AMPH 1000 ng/mL JERMAINE 200 ng/mL SAVANNAH 200 ng/mL COCM 300 ng/mL OP 300 ng/mL PCP 25 ng/mL THC 20 ng/mL Cannabinoids Screen Ql (U) Cannabinoids [Presence] in Urine by Screen method Negative [facility] Comment on above: These are unconfirme d results and should not be used for legal purposes. Drug Cut-Off Concentration: AMPH 1000 ng/mL JERMAINE 200 ng/mL SAVANNAH 200 ng/mL COCM 300 ng/mL OP 300 ng/mL PCP 25 ng/mL THC 20 ng/mL Capillary blood glucose ashley urement by glucometer (mass/volume)Ordered By: Bonilla Rubin on 03-08-2024 Glucose [Mass/Vol] 182 mg/dL Normal [facility] Comment on above: Result Comment: [facility] Glucose Reference Range is dependent on time and content of last meal. Glucose of more than 200 mg/dL in a nonstressed, ambulatory subject supports the diagnosis of Diabetes Mellitus.PERFORMED BY:[address] [place], [place] [phone] MEDICAL DIRECTORCLIFFORD LOBATO M.D. Performed By: #### G LULS ####Point of Care testing, Carbon dioxide, total [Moles /volume] in Serum or PlasmaOrdered By: Bonilla Rubin on 03-08-2024 CO2 [Moles/Vol] 25.0 mmol/L Normal 21.0-31.0 [facility] Comment on above: Performed By: #### P TT, HS TROP, PT, CMP, CK, CBC ####[id number] [place] [address] [place] Chloride [Moles/volume] in S ilia or PlasmaOrdered By: Bonilla Rubin on 03-08-2024 Chloride [Moles/Vol] 106 mmol/L Normal 98-107 [facility] Comment on above: Performed By: #### P TT, HS TROP, PT, CMP, CK, CBC ####[address] [address] [place] Color Auto (U)Ordered By: Yasmin Rubin on 03-08-2024 Color (U) Color of Urine by Auto Yellow [facility] Color of Urine by AutoOrdere d By: Bonilla Rubin on 03-08-2024 Color (U) Light-yellow Normal Yellow [facility] Comment on above: Order Comment: Name Collection Type:: Straight Catheter Performed By: #### U A ####[address] Complete Blood Count Auto Di ffon 03-08-2024 Mean Corpuscular HGB Conc 32.0 g/dL Low 32.5-35.6 [facility] Comment on above: Performed By: #### P TT, HS TROP, PT, CMP, CK, CBC ####[address] Monocytes/100 WBC (Bld) 18.68 % Normal 0.00-20.00 [facility] Comment on above: Performed By: #### P TT, HS TROP, PT, CMP, CK, CBC ####[address] NRBC% 0.2 /100{WBC} Normal 0-0.5 [facility] Comment on above: Performed By: #### P TT, HS TROP, PT, CMP, CK, CBC ####[place] [id number] [facility] [[email or web address]] Comprehensive Metabolic Pane guy 03-08-2024 Albumin [Mass/Vol] 3.8 g/dL Normal 3.5-5.7 [facility] Comment on above: Performed By: #### P TT, HS TROP, PT, CMP, CK, CBC ####[address] Creatinine Clr Calc Pharmacy 44.90 Normal [facility] Comment on above: Result Comment: PERF ORMED BY:[address] [place], [place] [phone] MEDICAL DIRECTORCLIFFORD LOBATO M.D. Performed By: #### P TT, HS TROP, PT, CMP, CK, CBC ####[place] [id number] [facility] [[email or web address]] GFR/1.73 sq M.predicted MDRD (S/P/Bld) [Vol rate/Area] 40.131 mL/min/{1.73_m2} Normal [facility] Comment on above: Performed By: #### P TT, HS TROP, PT, CMP, CK, CBC ####[place] [id number] [facility] [[email or web address]] Creatine kinase [Enzymatic a ctivity/volume] in Serum or PlasmaOrdered By: Bonilla Rubin on 03-08-2024 CK [Catalytic activity/Vol] 181 U/L Normal [facility] Comment on above: Performed By: #### P TT, HS TROP, PT, CMP, CK, CBC ####[address] [address] [facility] [[email or web address]] CK [Catalytic activity/Vol] Creatine kinase [Enzymatic activity/volume] in Serum or Plasma [facility] Creatinine [Mass/volume] in Serum or PlasmaOrdered By: Bonilla Rubin on 03-08-2024 Creatinine [Mass/Vol] 1.91 mg/dL High 0.70-1.30 [facility] Comment on above: Performed By: #### P TT, HS TROP, PT, CMP, CK, CBC ####[place] [id number] [facility] [[email or web address]] Drug Screen,Urineon 03-08-20 24 Amphetamine Screen,Urine Negative Normal Negative [facility] Comment on above: Performed By: #### U RDS ####[place] [id number] [facility] [[email or web address]] Barbiturate Screen,Urine Negative Normal Negative [facility] Comment on above: Performed By: #### U RDS ####[place] [id number] [facility] [[email or web address]] Benzodiazepines Screen,Urine Negative Normal Negative [facility] Comment on above: Performed By: #### U RDS ####[place] [id number] [facility] [[email or web address]] Cannabinoid Screen,Urine Negative Normal Negative [facility] Comment on above: Result Comment: Thes e are unconfirmed results and should not be used for legal purposes. Drug Cut-Off Concentration: AMPH 1000 ng/mL JERMAINE 200 ng/mL SAVANNAH 200 ng/mL COCM 300 ng/mL OP 300 ng/mL PCP 25 ng/mL THC 20 ng/mLPERFORMED BY:[address] [place], [place] [phone] MEDICAL DIRECTORCLIFFORD LOBATO M.D. Performed By: #### U RDS ####[place] [id number] [place] [address] [facility] [[email or web address]] Cocaine Screen,Urine Negative Normal Negative [facility] Comment on above: Performed By: #### U RDS ####[address] [address] [facility] [[email or web address]] Opiate Screen,Urine Negative Normal Negative [facility] Comment on above: Performed By: #### U RDS ####[address] [address] [facility] [[email or web address]] Phencyclidine Screen,Urine Negative Normal Negative [facility] Comment on above: Performed By: #### U RDS ####[place] [id number] [facility] [[email or web address]] ECG 12 lead ECGon 03-08-2024 ECG 12 lead ECG Normal [facility] Erythrocyte distribution wid th [Ratio] by Automated countOrdered By: Bonilla Rubin on 03-08-2024 Erythrocyte distribution width (RBC) [Ratio] 22.0 % High 12.0-14.8 [facility] Comment on above: Performed By: #### P TT, HS TROP, PT, CMP, CK, CBC ####[place] [id number] [facility] [[email or web address]] Erythrocytes [#/volume] in B lood by Automated countOrdered By: Bonilla Rubin on 03-08-2024 RBC (Bld) [#/Vol] 4.54 10*6/uL Normal 3.90-5.60 [facility] Comment on above: Performed By: #### P TT, HS TROP, PT, CMP, CK, CBC ####[place] [id number] [facility] [[email or web address]] Glucose [Mass/volume] in Ser um or PlasmaOrdered By: Bonilla Rubin on 03-08-2024 Glucose [Mass/Vol] 167 mg/dL High 70-100 [facility] Comment on above: Result Comment: [facility] Glucose Reference Range is dependent on time and content of last meal. Glucose of more than 200 mg/dL in a nonstressed, ambulatory subject supports the diagnosis of Diabetes Mellitus. ADA recommended reference range Performed By: #### P TT, HS TROP, PT, CMP, CK, CBC ####[facility] [id number] [place] [id number] [facility] [[email or web address]] Glucose [Mass/volume] in Uri ne by Test stripOrdered By: Bonilla Rubin on 03-08-2024 Glucose Test strip (U) [Mass/Vol] >=1000 mg/dL High Normal [facility] Glucose Test strip (U) [Mass/Vol] Glucose [Mass/volume] in Urine by Test strip [facility] Hematocrit [Volume Fraction] of Blood by Automated countOrdered By: Bonilla Rubin on 03-08-2024 Hematocrit (Bld) [Volume fraction] 32.2 % Low 38.8-50.0 [facility] Comment on above: Performed By: #### P TT, HS TROP, PT, CMP, CK, CBC ####[place] [id number] [place] [id number] [facility] [[email or web address]] Hemoglobin Test strip Ql (U) Ordered By: Bonilla Rubin on 03-08-2024 Hemoglobin Ql (U) Negative Negative [facility] Hemoglobin Ql (U) Hemoglobin [Presence ] in Urine by Test strip Negative [facility] Hemoglobin [Mass/volume] in BloodOrdered By: Bonilla Rubin on 03-08-2024 Hemoglobin (Bld) [Mass/Vol] 10.3 g/dL Low 13.0-17.0 [facility] Comment on above: Performed By: #### P TT, HS TROP, PT, CMP, CK, CBC ####[place] [id number] [facility] [[email or web address]] INR in Platelet poor plasma by Coagulation assayOrdered By: Bonilla Rubin on 03-08-2024 INR Coag (PPP) [Relative time] 1.1 {INR} Normal [facility] Comment on above: INR Therapeutic Rang [...] TT, HS TROP, PT, CMP, CK, CBC ####[facility] [id number] [place] [address] [facility] [[email or web address]] INR Coag (PPP) [Relative time] INR in Platelet poor plasma by Coagulation assay [facility] Comment on above: INR Therapeutic Rang [...] i n Urine by Test strip Negative [facility] Ketones [Presence] in Urine by Test stripOrdered By: Bonilla Rubin on 03-08-2024 Ketones Ql (U) Negative Normal Negative [facility] Comment on above: Order Comment: Name Collection Type:: Straight Catheter Performed By: #### U A ####[facility] [place] [address] [facility] [[email or web address]] Lactate [Moles/volume] in Se rum or PlasmaOrdered By: Bonilla Rubin on 03-08-2024 Lactate [Moles/Vol] 1.1 mmol/L Normal 0.5-2.2 [facility] Comment on above: Result Comment: PERF ORMED BY:[address] [place], [place] [id number] MEDICAL DIRECTORCLIFFORD LOBATO M.D. Performed By: #### C UBLD, LACTIC ####[address] Lactate [Moles/Vol] Lactate [Moles/volum e] in Serum or Plasma 0.5-2.2 [facility] Leukocyte esterase [Presence ] in Urine by Test stripOrdered By: Bonilla Rubin on 03-08-2024 Leukocyte esterase Test strip Ql (U) Negative Normal Negative [facility] Comment on above: Order Comment: Name Collection Type:: Straight Catheter Performed By: #### U A ####[address] Leukocyte esterase Test strip Ql (U) Leukocyte esterase [Presence] in Urine by Test strip Negative [facility] Leukocytes [#/volume] correc jorge for nucleated erythrocytes in Blood by Automated counOrdered By: Bonilla Rubin on 03-08-2024 WBC corrected for nucl RBC Auto (Bld) [#/Vol] 8.9 10*3/uL 4.1-10.5 [facility] Leukocytes [#/volume] in Blo od by Automated countOrdered By: Bonilla Rubin on 03-08-2024 WBC (Bld) [#/Vol] 8.9 10*3/uL Normal 4.1-10.5 [facility] Comment on above: Performed By: #### P TT, HS TROP, PT, CMP, CK, CBC ####[address] Lymphocytes [#/volume] in Bl ood by Automated countOrdered By: Bonilla Rubin on 03-08-2024 Lymphocytes (Bld) [#/Vol] 1.2 10*3/uL Normal 1.00-4.8 [facility] Comment on above: Performed By: #### P TT, HS TROP, PT, CMP, CK, CBC ####[address] Lymphocytes/100 leukocytes i n Blood by Automated countOrdered By: Bonilla Rubin on 03-08-2024 Lymphocytes/100 WBC (Bld) 13.1 % Normal . [facility] Comment on above: Performed By: #### P TT, HS TROP, PT, CMP, CK, CBC ####[place] [id number] MCH [Entitic mass] by Automa jorge countOrdered By: Bonilla Ruibn on 03-08-2024 MCH (RBC) [Entitic mass] 22.7 pg Low 27.5-35.2 [facility] Comment on above: Performed By: #### P TT, HS TROP, PT, CMP, CK, CBC ####[address] MCHC Auto (RBC) [Mass/Vol]Or dered By: Bonilla Rubin on 03-08-2024 MCHC (RBC) [Mass/Vol] 32.0 g/dL Low 32.5-35.6 [facility] MCV [Entitic volume] by Auto mated countOrdered By: Bonilla Rubin on 03-08-2024 MCV (RBC) [Entitic vol] 71.0 fL Low 83.5-101 [facility] Comment on above: Performed By: #### P TT, HS TROP, PT, CMP, CK, CBC ####[address] MR head/brain wo conon 03-08 MR head/brain wo con Normal [facility] Monocyte distribution width [Entitic volume] in Blood by AutomatedOrdered By: Bonilla Rubin on 03-08-2024 Monocyte distribution width Auto (Bld) [Entitic vol] 18.68 % 0.00-20.00 [facility] Monocyte distribution width Auto (Bld) [Entitic vol] Monocyte distribution width [Entitic volume] in Blood by Automated 0.00-20.00 [facility] Neutrophils [#/volume] in Bl ood by Automated countOrdered By: Bonilla Rubin on 03-08-2024 Neutrophils (Bld) [#/Vol] 6.2 10*3/uL Normal 1.8-7.7 [facility] Comment on above: Performed By: #### P TT, HS TROP, PT, CMP, CK, CBC ####[facility] [address] [place] [address] [facility] [[email or web address]] Nitrite Test strip Ql (U)Ord ered By: Bonilla Rubin on 03-08-2024 Nitrite Ql (U) Negative Negative [facility] Nitrite Ql (U) Nitrite [Presence] i n Urine by Test strip Negative [facility] No Panel InformationOrdered By: Bonilla Rubin on 03-08-2024 Arterial Blood Base Excess -1.4 mmol/L -3.0-3.0 [facility] Arterial Blood Oxygen Content 6.4 mmol/L Low 6.6-9.7 [facility] Arterial Blood Oxygen Saturation 97.1 % 95.0-100.0 [facility] Arterial Blood Partial Pressure CO2 33.3 mm[Hg] Low 35.0-45.0 [facility] Arterial Blood Partial Pressure O2 92.6 mm[Hg] 80.0-100.0 [facility] Arterial Blood pH 7.44 7.35-7.45 [facility] Blood Gas Critical Value See comment [facility] Comment on above: Critical Value gibbons d on: 03/08/2024 at 15:16 Blood Gas Sample Site Left radial [facility] FiO2 21 % [facility] 7.44 7.35-7.45 [facility] 33.3 mm[Hg] Low 35.0-45.0 [facility] 92.6 mm[Hg] 80.0-100.0 [facility] 22.2 mmol/L Low 23.0-29.0 [facility] -1.4 mmol/L -3.0-3.0 [facility] 97.1 % 95.0-100.0 [facility] 6.4 mmol/L Low 6.6-9.7 [facility] 23.2 mmol/L 23.0-27.0 [facility] 21 % [facility] Left radial [facility] See comment [facility] 40.131 mL/Min [facility] 44.90 [facility] Nucleated erythrocytes [Pres ence] in Blood by Automated countOrdered By: Bonilla Rubin on 03-08-2024 Nucleated RBC Auto Ql (Bld) 0.2 /100{WBC} 0-0.5 [facility] Opiates [Presence] in Urine by Screen methodOrdered By: Bonilla Rubin on 03-08-2024 Opiates Screen Ql (U) Negative Negative [facility] Opiates Screen Ql (U) Opiates [Presence] in Urine by Screen method Negative [facility] Partial Thromboplastin Timeo n 03-08-2024 aPTT Coag (Bld) [Time] 29.6 s Normal 25.1-36.5 [facility] Comment on above: Result Comment: A he matocrit value greater than 55% may lead to inaccurate results in coagulation testing. Patients having hematocrit values >55% require a special collection tube for coagulation studies. Please contact the laboratory at [phone] for redraw instructions.PERFORMED BY:[address] [place], [place] [phone] MEDICAL DIRECTORCLIFFORD LOBATO M.D. Performed By: #### P TT, HS TROP, PT, CMP, CK, CBC ####[facility] [address] [place] [address] [facility] [[email or web address]] Phencyclidine Screen Ql (U)O rdered By: Bonilla Rubin on 03-08-2024 Phencyclidine Ql (U) Negative Negative [facility] Phencyclidine Ql (U) Phencyclidine [Pres ence] in Urine by Screen method Negative [facility] Platelet mean volume [Entiti c volume] in Blood by Automated countOrdered By: Bonilla Rubin on 03-08-2024 Platelet mean volume (Bld) [Entitic vol] 8.2 fL Normal 6.6-10.1 [facility] Comment on above: Performed By: #### P TT, HS TROP, PT, CMP, CK, CBC ####[place] [id number] [place] Platelets [#/volume] in Bloo d by Automated countOrdered By: Bonilla Rubin on 03-08-2024 Platelets (Bld) [#/Vol] 286 10*3/uL Normal 150-450 [facility] Comment on above: Performed By: #### P TT, HS TROP, PT, CMP, CK, CBC ####[place] [id number] [facility] [[email or web address]] Potassium [Moles/volume] in Serum or PlasmaOrdered By: Bonilla Rubin on 03-08-2024 Potassium [Moles/Vol] 4.1 mmol/L Normal 3.5-5.1 [facility] Comment on above: Performed By: #### P TT, HS TROP, PT, CMP, CK, CBC ####[place] [id number] [facility] [[email or web address]] Protein Test strip (U) [Mass /Vol]Ordered By: Bonilla Rubin on 03-08-2024 Protein (U) [Mass/Vol] Negative Negative [facility] Protein (U) [Mass/Vol] Protein [Mass/vol ume] in Urine by Test strip Negative [facility] Protein [Mass/volume] in Ser um or PlasmaOrdered By: Bonilla Rubin on 03-08-2024 Protein [Mass/Vol] 7.7 g/dL Normal 6.4-8.9 [facility] Comment on above: Performed By: #### P TT, HS TROP, PT, CMP, CK, CBC ####[place] [id number] [facility] [[email or web address]] Prothrombin time (PT)Ordered By: Bonilla Rubin on 03-08-2024 PT Coag (PPP) [Time] 13.0 s High 9.0-12.9 [facility] Comment on above: A hematocrit value g reater than 55% may lead to inaccurate results in coagulation testing. Patients having hematocrit values >55% require a special collection tube for coagulation studies. Please contact the laboratory at [phone] for redraw instructions. Result Comment: A he matocrit value greater than 55% may lead to inaccurate results in coagulation testing. Patients having hematocrit values >55% require a special collection tube for coagulation studies. Please contact the laboratory at [phone] for redraw instructions. Performed By: #### P TT, HS TROP, PT, CMP, CK, CBC ####[place] [id number] [facility] [[email or web address]] PT Coag (PPP) [Time] Prothrombin time (PT) High 9.0- 12.9 [facility] Comment on above: A hematocrit value g reater than 55% may lead to inaccurate results in coagulation testing. Patients having hematocrit values >55% require a special collection tube for coagulation studies. Please contact the laboratory at [phone] for redraw instructions. Respiratory (Upper) Panel, P CRon 03-08-2024 Respiratory (Upper) Panel, PCR Normal [facility] Comment on above: Performed By: #### R QUE PANEL UPP., BIOFIRECOVNOTDE ####[place] [id number] Respiratory pathogens DNA an d RNA panel - Nasopharynx by NELLY with non-probe detectionOrdered By: Bonilla Rubin on 03-08-2024 Respiratory pathogens DNA and RNA panel NELLY+non-probe (Nph) Respiratory pathogens DNA and RNA panel - Nasopharynx by NELLY with non-probe detection [facility] Respiratory pathogens DNA and RNA panel NELLY+non-probe (Nph) [facility] Serum globulin measurement b y calculation (mass/volume)Ordered By: Bonilla Rubin on 03-08-2024 Globulin (S) [Mass/Vol] 3.9 g/dL [facility] Comment on above: Performed By: #### P TT, HS TROP, PT, CMP, CK, CBC ####[place] [id number] Serum or plasma albumin/glob ulin mass ratioOrdered By: Bonilla Rubin on 03-08-2024 Albumin/Globulin [Mass ratio] 1.0 {ratio} [facility] Comment on above: Performed By: #### P TT, HS TROP, PT, CMP, CK, CBC ####[address] Serum or plasma anion gap de terminationOrdered By: Bonilla Rubin on 03-08-2024 Anion gap [Moles/Vol] 14.1 mmol/L Normal 6.0-15.0 [facility] Comment on above: Performed By: #### P TT, HS TROP, PT, CMP, CK, CBC ####[place] [id number] [place] [address] [facility] [[email or web address]] Sodium [Moles/volume] in Ser um or PlasmaOrdered By: Bonilla Rubin on 03-08-2024 Sodium [Moles/Vol] 141 mmol/L Normal 136-145 [facility] Comment on above: Performed By: #### P TT, HS TROP, PT, CMP, CK, CBC ####[address] [address] [facility] [[email or web address]] Specific gravity Test strip (U) [Rel density]Ordered By: Bonilla Rubin on 03-08-2024 Specific gravity (U) [Rel density] 1.013 1.001-1.03 0 [facility] Specific gravity (U) [Rel density] Specific gravity of Urine by Test strip 1.001-1.03 0 [facility] Troponin I High Sensitivityo n 03-08-2024 Troponin I High Sensitivity 6.1 pg/mL Normal 0.0-20.0 [facility] Comment on above: Result Comment: PERF ORMED BY:[address] [place], [place] [phone] MEDICAL DIRECTORCLIFFORD LOBATO M.D. Performed By: #### P TT, HS TROP, PT, CMP, CK, CBC ####[address] [address] [facility] [[email or web address]] Troponin I.cardiac [Mass/vol ume] in Serum or Plasma by Detection limit <= 0.01 ng/Ordered By: Bonilla Rubin on 03-08-2024 Troponin I.cardiac DL <= 0.01 ng/mL [Mass/Vol] 6.1 pg/mL 0.0-20.0 [facility] Troponin I.cardiac DL <= 0.01 ng/mL [Mass/Vol] Troponin I.cardiac [Mass/volume] in Serum or Plasma by Detection limit <= 0.01 ng/ 0.0-20.0 [facility] Urea nitrogen [Mass/volume] in Serum or PlasmaOrdered By: Bonilla Rubin on 03-08-2024 Urea nitrogen [Mass/Vol] 19 mg/dL Normal 7-25 [facility] Comment on above: Performed By: #### P TT, HS TROP, PT, CMP, CK, CBC ####[place] [id number] [place] [address] [facility] [[email or web address]] Urinalysison 03-08-2024 Bilirubin,Urine Negative Normal Negative [facility] Comment on above: Order Comment: Name Collection Type:: Straight Catheter Performed By: #### U A ####[address] [address] [facility] [[email or web address]] Glucose Ql (U) >=1000 High Normal [facility] Comment on above: Order Comment: Name Collection Type:: Straight Catheter Performed By: #### U A ####[address] [address] [facility] [[email or web address]] Nitrite,Urine Negative Normal Negative [facility] Comment on above: Order Comment: Name Collection Type:: Straight Catheter Performed By: #### U A ####[address] [address] [facility] [[email or web address]] Occult Blood,Urine Negative Normal Negative [facility] Comment on above: Order Comment: Name Collection Type:: Straight Catheter Result Comment: PERF ORMED BY:[address] [place], [place] [phone] MEDICAL BRISA LOBATO M.D. Performed By: #### U A ####[address] [address] [facility] [[email or web address]] Protein,Urine Negative Normal Negative [facility] Comment on above: Order Comment: Name Collection Type:: Straight Catheter Performed By: #### U A ####[address] [address] [facility] [[email or web address]] Specificy [place],Urine 1.013 Normal 1.001-1.03 0 [facility] Comment on above: Order Comment: Name Collection Type:: Straight Catheter Performed By: #### U A ####[address] [address] [facility] [[email or web address]] Urobilinogen,Urine Normal Normal Normal [facility] Comment on above: Order Comment: Name Collection Type:: Straight Catheter Performed By: #### U A ####[address] [place] [address] [facility] [[email or web address]] Urine appearanceOrdered By: Bonilla Rubin on 03-08-2024 Appearance (U) Clear Normal Clear [facility] Comment on above: Order Comment: Name Collection Type:: Straight Catheter Performed By: #### U A ####[place] [id number] [facility] [[email or web address]] Urobilinogen Test strip (U) [Mass/Vol]Ordered By: Bonilla Rubin on 03-08-2024 Urobilinogen (U) [Mass/Vol] Normal mg/dL Normal [facility] Urobilinogen (U) [Mass/Vol] Urobilinogen [Mass/volume] in Urine by Test strip Normal [facility] XR chest 1V portableon 03-08 XR chest 1V portable Normal [facility] aPTT in Platelet poor plasma by Coagulation assayOrdered By: Bonilla Rubin on 03-08-2024 aPTT Coag (PPP) [Time] Activated partial thromboplastin time (aPTT) in platelet poor plasma by coagulation a 25.1-36.5 [facility] Comment on above: A hematocrit value g reater than 55% may lead to inaccurate results in coagulation testing. Patients having hematocrit values >55% require a special collection tube for coagulation studies. Please contact the laboratory at [phone] for redraw instructions. pH Test strip (U)Ordered By: Bonilla Rubin on 03-08-2024 pH (U) pH of Urine by Test strip 5.0-9.0 [facility] pH of Urine by Test stripOrd ered By: Bonilla Rubin on 03-08-2024 pH (U) 5.0 [pH] Normal 5.0-9.0 [facility] Comment on above: Order Comment: Name Collection Type:: Straight Catheter Performed By: #### U A ####[place] [id number] [facility] [[email or web address]] Alanine aminotransferase [En zymatic activity/volume] in Serum or PlasmaOrdered By: João Powell on 03-06-2024 ALT [Catalytic activity/Vol] 11 U/L Normal 7-52 [facility] Comment on above: Performed By: #### M G, PHOS, CMP, DIFF CBC ####[facility] [place] [id number] [facility] [[email or web address]] ALT [Catalytic activity/Vol] Alanine aminotransferase [Enzymatic activity/volume] in Serum or Plasma [facility] Albumin [Mass/volume] in Ser um or Plasma by Bromocresol green (BCG) dye binding methoOrdered By: João Powell on 03-06-2024 Albumin BCG dye [Mass/Vol] 3.3 g/dL Low 3.5-5.7 [facility] Albumin BCG dye [Mass/Vol] Albumin [Mass/volume] in Serum or Plasma by Bromocresol green (BCG) dye binding metho Low 3.5-5.7 [facility] Alkaline phosphatase [Enzyma tic activity/volume] in Serum or PlasmaOrdered By: João Powell on 03-06-2024 ALP [Catalytic activity/Vol] 101 U/L Normal 34-104 [facility] Comment on above: Performed By: #### M G, PHOS, CMP, DIFF CBC ####[place] [id number] [facility] [[email or web address]] ALP [Catalytic activity/Vol] Alkaline phosphatase [Enzymatic activity/volume] in Serum or Plasma 34-104 [facility] Anisocytosis LM Ql (Bld)Orde red By: João Powell on 03-06-2024 Anisocytosis Ql (Bld) Anisocytosis [Pres ence] in Blood by Light microscopy [facility] Anisocytosis [Presence] in B lood by Light microscopyOrdered By: João Powell on 03-06-2024 Anisocytosis Ql (Bld) Marked Normal [facility] Comment on above: Performed By: #### M G, PHOS, CMP, DIFF CBC ####[place] [id number] [facility] [[email or web address]] Aspartate aminotransferase [ Enzymatic activity/volume] in Serum or PlasmaOrdered By: João Powell on 03-06-2024 AST [Catalytic activity/Vol] 14 U/L Normal 13-39 [facility] Comment on above: Performed By: #### M G, PHOS, CMP, DIFF CBC ####[place] [id number] [place] [id number] [facility] [[email or web address]] AST [Catalytic activity/Vol] Aspartate aminotransferase [Enzymatic activity/volume] in Serum or Plasma 13-39 [facility] Basophils Auto (Bld) [#/Vol] Ordered By: João Powell on 03-06-2024 Basophils (Bld) [#/Vol] N/A [facility] Basophils (Bld) [#/Vol] Automated basophil count [facility] Basophils/100 WBC Auto (Bld) Ordered By: João Powell on 03-06-2024 Basophils/100 WBC (Bld) N/A [facility] Basophils/100 WBC (Bld) Automated basophil % [facility] Basophils/100 WBC Manual cnt (Bld)Ordered By: João Powell on 03-06-2024 Basophils/100 WBC (Bld) Basophils/100 leukocytes in Blood by Manual count 0-2 [facility] Basophils/100 leukocytes in Blood by Manual countOrdered By: João Powell on 03-06-2024 Basophils/100 WBC (Bld) 1 % Normal 0-2 [facility] Comment on above: Performed By: #### M G, PHOS, CMP, DIFF CBC ####[address] Bilirubin.total [Mass/volume ] in Serum or PlasmaOrdered By: João Powell on 03-06-2024 Bilirubin [Mass/Vol] 0.4 mg/dL Normal 0.3-1.0 [facility] Comment on above: Performed By: #### M G, PHOS, CMP, DIFF CBC ####[place] [id number] [facility] [[email or web address]] Bilirubin [Mass/Vol] Bilirubin.total [Mass/volume] in Serum or Plasma 0.3-1.0 [facility] Calcium [Mass/volume] in Ser um or PlasmaOrdered By: João Powell on 03-06-2024 Calcium [Mass/Vol] 8.7 mg/dL Normal 8.6-10.3 [facility] Comment on above: Performed By: #### M G, PHOS, CMP, DIFF CBC ####[facility] [place] [address] [facility] [[email or web address]] Calcium [Mass/Vol] Calcium [Mass/volume ] in Serum or Plasma 8.6-10.3 [facility] Capillary blood glucose ashley urement by glucometer (mass/volume)Ordered By: João Powell on 03-06-2024 Glucose [Mass/Vol] 169 mg/dL Normal [facility] Comment on above: Random Glucose Refer ence Range is dependent on time and content of last meal. Glucose of more than 200 mg/dL in a nonstressed, ambulatory subject supports the diagnosis of Diabetes Mellitus. Result Comment: Coolin om Glucose Reference Range is dependent on time and content of last meal. Glucose of more than 200 mg/dL in a nonstressed, ambulatory subject supports the diagnosis of Diabetes Mellitus.PERFORMED BY:[place] [address] [address] [place], [place] [phone] MEDICAL DIRECTORCLIFFORD LOBATO M.D. Performed By: #### G LULS ####Point of Care testing, Carbon dioxide, total [Moles /volume] in Serum or PlasmaOrdered By: João Powell on 03-06-2024 CO2 [Moles/Vol] 24.3 mmol/L Normal 21.0-31.0 [facility] Comment on above: Performed By: #### M G, PHOS, CMP, DIFF CBC ####[address] [address] [facility] [[email or web address]] CO2 [Moles/Vol] Carbon dioxide, tota l [Moles/volume] in Serum or Plasma 21.0-31.0 [facility] Chloride [Moles/volume] in S ilia or PlasmaOrdered By: João Powell on 03-06-2024 Chloride [Moles/Vol] 107 mmol/L Normal 98-107 [facility] Comment on above: Performed By: #### M G, PHOS, CMP, DIFF CBC ####[address] [address] [facility] [[email or web address]] Chloride [Moles/Vol] Chloride [Moles/vol ume] in Serum or Plasma 98-107 [facility] Comprehensive Metabolic Pane guy 03-06-2024 Albumin [Mass/Vol] 3.3 g/dL Low 3.5-5.7 [facility] Comment on above: Performed By: #### M G, PHOS, CMP, DIFF CBC ####[place] [address] [place] [address] [facility] [[email or web address]] Creatinine Clr Calc Pharmacy 62.24 Normal [facility] Comment on above: Performed By: #### M G, PHOS, CMP, DIFF CBC ####[place] [address] [place] [address] [place] GFR/1.73 sq M.predicted MDRD (S/P/Bld) [Vol rate/Area] 57.276 mL/min/{1.73_m2} Normal [facility] Comment on above: Performed By: #### M G, PHOS, CMP, DIFF CBC ####[place] [id number] [facility] [[email or web address]] Creatinine [Mass/volume] in Serum or PlasmaOrdered By: João Powell on 03-06-2024 Creatinine [Mass/Vol] 1.42 mg/dL High 0.70-1.30 [facility] Comment on above: Performed By: #### M G, PHOS, CMP, DIFF CBC ####[place] [id number] [facility] [[email or web address]] Creatinine [Mass/Vol] Creatinine [Mass/v olume] in Serum or Plasma High 0.70-1.30 [facility] Dacrocytes [Presence] in Blo od by Light microscopyOrdered By: João Powell on 03-06-2024 Dacrocytes LM Ql (Bld) Teardrop cell detection [facility] Diff and CBCon 03-06-2024 Hypochromasia Slight Normal [facility] Comment on above: Performed By: #### M G, PHOS, CMP, DIFF CBC ####[place] [id number] [facility] [[email or web address]] Large Platelets Slight Normal [facility] Comment on above: Result Comment: PERF ORMED BY:[address] [place], [place] [phone] MEDICAL DIRECTORCLIFFORD LOBTAO M.D. Performed By: #### M G, PHOS, CMP, DIFF CBC ####[place] [id number] Mean Corpuscular HGB Conc 32.0 g/dL Low 32.5-35.6 [facility] Comment on above: Performed By: #### M G, PHOS, CMP, DIFF CBC ####[address] Microcytosis Slight Normal [facility] Comment on above: Performed By: #### M G, PHOS, CMP, DIFF CBC ####[place] [id number] Platelet Estimate Normal Normal Normal [facility] Comment on above: Performed By: #### M G, PHOS, CMP, DIFF CBC ####[address] Polychromasia Slight Normal [facility] Comment on above: Performed By: #### M G, PHOS, CMP, DIFF CBC ####[address] Tear Drop Cells Slight Normal [facility] Comment on above: Performed By: #### M G, PHOS, CMP, DIFF CBC ####[address] Eosinophils Auto (Bld) [#/Vo l]Ordered By: João Powell on 03-06-2024 Eosinophils (Bld) [#/Vol] N/A [facility] Eosinophils (Bld) [#/Vol] Automated eosinophil count [facility] Eosinophils/100 WBC Auto (Bl d)Ordered By: João Powell on 03-06-2024 Eosinophils/100 WBC (Bld) N/A [facility] Eosinophils/100 WBC (Bld) Automated eosinophil % [facility] Eosinophils/100 WBC Manual c nt (Bld)Ordered By: João Powell on 03-06-2024 Eosinophils/100 WBC (Bld) Eosinophils/100 leukocytes in Blood by Manual count 1-3 [facility] Eosinophils/100 leukocytes i n Blood by Manual countOrdered By: João Powell on 03-06-2024 Eosinophils/100 WBC (Bld) 1 % Normal 1-3 [facility] Comment on above: Performed By: #### M G, PHOS, CMP, DIFF CBC ####[place] [id number] Erythrocyte distribution wid th Auto (RBC) [Ratio]Ordered By: João Powell on 03-06-2024 Erythrocyte distribution width (RBC) [Ratio] Erythrocyte distribution width [Ratio] by Automated count High 12.0-14.8 [facility] Erythrocyte distribution wid th [Ratio] by Automated countOrdered By: João Powell on 03-06-2024 Erythrocyte distribution width (RBC) [Ratio] 21.1 % High 12.0-14.8 [facility] Comment on above: Performed By: #### M G, PHOS, CMP, DIFF CBC ####[address] Erythrocyte morphology findi ng [Identifier] in BloodOrdered By: João Powell on 03-06-2024 RBC morphology finding Nom (Bld) RBC morphology [facility] Erythrocytes [#/volume] in B lood by Automated countOrdered By: João Powell on 03-06-2024 RBC (Bld) [#/Vol] 3.68 10*6/uL Low 3.90-5.60 [facility] Comment on above: Performed By: #### M G, PHOS, CMP, DIFF CBC ####[address] Globulin Calc (S) [Mass/Vol] Ordered By: João Powell on 03-06-2024 Globulin (S) [Mass/Vol] Serum globulin measurement by calculation (mass/volume) [facility] Glucose Glucometer (BldC) [M ass/Vol]Ordered By: João Powell on 03-06-2024 Glucose [Mass/Vol] Capillary blood gluc ose measurement by glucometer (mass/volume) [facility] Comment on above: Random Glucose Refer ence Range is dependent on time and content of last meal. Glucose of more than 200 mg/dL in a nonstressed, ambulatory subject supports the diagnosis of Diabetes Mellitus. Glucose Poct Glucometerson 1 Glucose [Mass/Vol] 128 mg/dL Normal [facility] Comment on above: Result Comment: Coolin Glucose Reference Range is dependent on time and content of last meal. Glucose of more than 200 mg/dL in a nonstressed, ambulatory subject supports the diagnosis of Diabetes Mellitus.PERFORMED BY:[facility] [place], [place] [phone] MEDICAL DIRECTORCLIFFORD LOBATO M.D. Performed By: #### G LULS ####Point of Care testing, Glucose [Mass/volume] in Ser um or PlasmaOrdered By: João Powell on 03-06-2024 Glucose [Mass/Vol] 99 mg/dL Normal 70-100 [facility] Comment on above: ADA recommended refe rence rangeRandom Glucose Reference Range is dependent on time and content of last meal. Glucose of more than 200 mg/dL in a nonstressed, ambulatory subject supports the diagnosis of Diabetes Mellitus. Result Comment: [place] Glucose Reference Range is dependent on time and content of last meal. Glucose of more than 200 mg/dL in a nonstressed, ambulatory subject supports the diagnosis of Diabetes Mellitus. ADA recommended reference range Performed By: #### M G, PHOS, CMP, DIFF CBC ####[facility] [id number] [place] [address] [facility] [[email or web address]] Glucose [Mass/Vol] Glucose [Mass/volume ] in Serum or Plasma 70-100 [facility] Comment on above: ADA recommended refe rence rangeRandom Glucose Reference Range is dependent on time and content of last meal. Glucose of more than 200 mg/dL in a nonstressed, ambulatory subject supports the diagnosis of Diabetes Mellitus. Hematocrit Auto (Bld) [Volum e fraction]Ordered By: João Powell on 03-06-2024 Hematocrit (Bld) [Volume fraction] Hematocrit [Volume Fraction] of Blood by Automated count Low 38.8-50.0 [facility] Hematocrit [Volume Fraction] of Blood by Automated countOrdered By: João Powell on 03-06-2024 Hematocrit (Bld) [Volume fraction] 25.8 % Low 38.8-50.0 [facility] Comment on above: Performed By: #### M G, PHOS, CMP, DIFF CBC ####[facility] [id number] [place] [id number] [facility] [[email or web address]] Hemoglobin [Mass/volume] in BloodOrdered By: João Powell on 03-06-2024 Hemoglobin (Bld) [Mass/Vol] 8.3 g/dL Low 13.0-17.0 [facility] Comment on above: Performed By: #### M G, PHOS, CMP, DIFF CBC ####[facility] [id number] Hemoglobin (Bld) [Mass/Vol] Hemoglobin [Mass/volume] in Blood Low 13.0-17.0 [facility] Hypochromia LM Ql (Bld)Order ed By: João Powell on 03-06-2024 Hypochromia Ql (Bld) Slight [facility] Hypochromia Ql (Bld) Hypochromia [Presen ce] in Blood by Light microscopy [facility] Leukocytes [#/volume] correc jorge for nucleated erythrocytes in Blood by Automated counOrdered By: João Powell on 03-06-2024 WBC corrected for nucl RBC Auto (Bld) [#/Vol] 6.8 10*3/uL 4.1-10.5 [facility] WBC corrected for nucl RBC Auto (Bld) [#/Vol] Leukocytes [#/volume] corrected for nucleated erythrocytes in Blood by Automated coun 4.1-10.5 [facility] Leukocytes [#/volume] in Blo od by Automated countOrdered By: João Powell on 03-06-2024 WBC (Bld) [#/Vol] 6.8 10*3/uL Normal 4.1-10.5 [facility] Comment on above: Performed By: #### M G, PHOS, CMP, DIFF CBC ####[facility] [id number] Lymphocytes Auto (Bld) [#/Vo l]Ordered By: João Powell on 03-06-2024 Lymphocytes (Bld) [#/Vol] N/A [facility] Lymphocytes (Bld) [#/Vol] Lymphocytes [#/volume] in Blood by Automated count [facility] Lymphocytes/100 WBC Auto (Bl d)Ordered By: João Powell on 03-06-2024 Lymphocytes/100 WBC (Bld) N/A [facility] Lymphocytes/100 WBC (Bld) Lymphocytes/100 leukocytes in Blood by Automated count [facility] Lymphocytes/100 WBC Manual c nt (Bld)Ordered By: João Powell on 03-06-2024 Lymphocytes/100 WBC (Bld) Lymphocytes/100 leukocytes in Blood by Manual count [facility] Lymphocytes/100 leukocytes i n Blood by Manual countOrdered By: João Powell on 03-06-2024 Lymphocytes/100 WBC (Bld) 18 % Normal [facility] Comment on above: Performed By: #### M G, PHOS, CMP, DIFF CBC ####[facility] [id number] [place] [address] MCH Auto (RBC) [Entitic mass ]Ordered By: João Powell on 03-06-2024 MCH (RBC) [Entitic mass] MCH [Entitic mass] by Automated count Low 27.5-35.2 [facility] MCH [Entitic mass] by Automa jorge countOrdered By: João Powell on 03-06-2024 MCH (RBC) [Entitic mass] 22.4 pg Low 27.5-35.2 [facility] Comment on above: Performed By: #### M G, PHOS, CMP, DIFF CBC ####[facility] [id number] [place] [address] MCHC Auto (RBC) [Mass/Vol]Or dered By: João Powell on 03-06-2024 MCHC (RBC) [Mass/Vol] 32.0 g/dL Low 32.5-35.6 [facility] MCHC (RBC) [Mass/Vol] MCHC [Mass/volume] by Automated count Low 32.5-35.6 [facility] MCV Auto (RBC) [Entitic vol] Ordered By: João Powell on 03-06-2024 MCV (RBC) [Entitic vol] MCV [Entitic volume] by Automated count Low 83.5-101 [facility] MCV [Entitic volume] by Auto mated countOrdered By: João Powell on 03-06-2024 MCV (RBC) [Entitic vol] 70.2 fL Low 83.5-101 [facility] Comment on above: Performed By: #### M G, PHOS, CMP, DIFF CBC ####[place] [id number] [facility] [[email or web address]] Magnesium [Mass/volume] in S ilia or PlasmaOrdered By: João Powell on 03-06-2024 Magnesium [Mass/Vol] 1.6 mg/dL Low 1.9-2.7 [facility] Comment on above: Result Comment: PERF ORMED BY:[address] [place], [place] [phone] MEDICAL DIRECTORCLIFFORD LOBATO M.D. Performed By: #### M G, PHOS, CMP, DIFF CBC ####[facility] [id number] [place], [place] [id number] [facility] [[email or web address]] Magnesium [Mass/Vol] Magnesium [Mass/vol ume] in Serum or Plasma Low 1.9-2.7 [facility] Manual blood segmented neutr ophils/100 leukocytesOrdered By: João Powell on 03-06-2024 Segmented neutrophils/100 WBC (Bld) 72 % High 50-70 [facility] Comment on above: Performed By: #### M G, PHOS, CMP, DIFF CBC ####[place] [id number] [place] Microcytes LM Ql (Bld)Ordere d By: João Powell on 03-06-2024 Microcytes Ql (Bld) Slight [facility] Microcytes Ql (Bld) Microcytes [Presence ] in Blood by Light microscopy [facility] Monocytes Auto (Bld) [#/Vol] Ordered By: João Powell on 03-06-2024 Monocytes (Bld) [#/Vol] N/A [facility] Monocytes (Bld) [#/Vol] Automated blood monocyte count [facility] Monocytes/100 WBC Auto (Bld) Ordered By: João Powell on 03-06-2024 Monocytes/100 WBC (Bld) N/A [facility] Monocytes/100 WBC (Bld) Automated monocyte % [facility] Monocytes/100 WBC Manual cnt (Bld)Ordered By: João Powell on 03-06-2024 Monocytes/100 WBC (Bld) Monocytes/100 leukocytes in Blood by Manual count 07-16 [facility] Monocytes/100 leukocytes in Blood by Manual countOrdered By: João Powell on 03-06-2024 Monocytes/100 WBC (Bld) 8 % Normal [address] Comment on above: Performed By: #### M G, PHOS, CMP, DIFF CBC ####[facility] [id number] [place] [address] [facility] [[email or web address]] Neutrophils Auto (Bld) [#/Vo l]Ordered By: João Powell on 03-06-2024 Neutrophils (Bld) [#/Vol] N/A [facility] Neutrophils (Bld) [#/Vol] Neutrophils [#/volume] in Blood by Automated count [facility] Neutrophils/100 WBC Auto (Bl d)Ordered By: João Powell on 03-06-2024 Neutrophils/100 WBC (Bld) N/A [facility] Neutrophils/100 WBC (Bld) Automated neutrophil % [facility] No Panel InformationOrdered By: João Powell on 03-06-2024 Estimated GFR (CKD-EPI) 57.276 mL/Min [facility] Creatinine Clearance (Chem 62.24 [facility] 57.276 mL/Min [facility] 62.24 [facility] Nucleated erythrocytes [Pres ence] in Blood by Automated countOrdered By: João Powell on 03-06-2024 Nucleated RBC Auto Ql (Bld) N/A [facility] Nucleated RBC Auto Ql (Bld) Nucleated erythrocytes [Presence] in Blood by Automated count [facility] Phosphate [Mass/volume] in S ilia or PlasmaOrdered By: João Powell on 03-06-2024 Phosphate [Mass/Vol] 3.2 mg/dL Normal 2.5-4.5 [facility] Comment on above: Performed By: #### M G, PHOS, CMP, DIFF CBC ####[place] [id number] Phosphate [Mass/Vol] Phosphate [Mass/vol ume] in Serum or Plasma 2.5-4.5 [facility] Platelet adequacy [Presence] in Blood by Light microscopyOrdered By: João Powell on 03-06-2024 Platelets LM Ql (Bld) Normal Normal Fir [facility] Platelets LM Ql (Bld) Platelet adequacy [Presence] in Blood by Light microscopy Normal [facility] Platelet mean volume Auto (B ld) [Entitic vol]Ordered By: João Powell on 03-06-2024 Platelet mean volume (Bld) [Entitic vol] Platelet mean volume [Entitic volume] in Blood by Automated count 6.6-10.1 [facility] Platelet mean volume [Entiti c volume] in Blood by Automated countOrdered By: João Powell on 03-06-2024 Platelet mean volume (Bld) [Entitic vol] 8.1 fL Normal 6.6-10.1 [facility] Comment on above: Performed By: #### M G, PHOS, CMP, DIFF CBC ####[address] Platelet morphology finding [Identifier] in BloodOrdered By: João Powell on 03-06-2024 Platelet morphology finding Nom (Bld) N/A [facility] Platelet morphology finding Nom (Bld) Platelet morphology finding [Identifier] in Blood [facility] Platelets Auto (Bld) [#/Vol] Ordered By: João Powell on 03-06-2024 Platelets (Bld) [#/Vol] Platelets [#/volume] in Blood by Automated count 150-450 [facility] Platelets Large [Presence] i n Blood by Light microscopyOrdered By: João Powell on 03-06-2024 Platelets Large LM Ql (Bld) Slight [facility] Platelets Large LM Ql (Bld) Platelets Large [Presence] in Blood by Light microscopy [facility] Platelets [#/volume] in Bloo d by Automated countOrdered By: João Powell on 03-06-2024 Platelets (Bld) [#/Vol] 325 10*3/uL Normal 150-450 [facility] Comment on above: Performed By: #### M G, PHOS, CMP, DIFF CBC ####[facility] [id number] Polychromasia [Presence] in Blood by Light microscopyOrdered By: João Powell on 03-06-2024 Polychromasia LM Ql (Bld) Slight [facility] Polychromasia LM Ql (Bld) Polychromasia [Presence] in Blood by Light microscopy [facility] Potassium [Moles/volume] in Serum or PlasmaOrdered By: João Powell on 03-06-2024 Potassium [Moles/Vol] 4.2 mmol/L Normal 3.5-5.1 [facility] Comment on above: Performed By: #### M Ines, PHOS, CMP, DIFF CBC ####[address] Potassium [Moles/Vol] Potassium [Moles/v olume] in Serum or Plasma 3.5-5.1 [facility] Protein [Mass/volume] in Ser um or PlasmaOrdered By: João Powell on 03-06-2024 Protein [Mass/Vol] 6.1 g/dL Low 6.4-8.9 [facility] Comment on above: Performed By: #### M G, PHOS, CMP, DIFF CBC ####[address] Protein [Mass/Vol] Protein [Mass/volume ] in Serum or Plasma Low 6.4-8.9 [facility] RBC Auto (Bld) [#/Vol]Ordere d By: João Powell on 03-06-2024 RBC (Bld) [#/Vol] Erythrocytes [#/volu me] in Blood by Automated count Low 3.90-5.60 [facility] RBC morphologyOrdered By: Derek Powell on 03-06-2024 RBC morphology finding Nom (Bld) N/A [facility] Segmented neutrophils/100 WB C Manual cnt (Bld)Ordered By: João Powell on 03-06-2024 Segmented neutrophils/100 WBC (Bld) Manual blood segmented neutrophils/100 leukocytes High 50-70 [facility] Serum globulin measurement b y calculation (mass/volume)Ordered By: João Powell on 03-06-2024 Globulin (S) [Mass/Vol] 2.8 g/dL [facility] Comment on above: Performed By: #### M Ines, PHOS, CMP, DIFF CBC ####[facility] [id number] Serum or plasma albumin/glob ulin mass ratioOrdered By: João Powell on 03-06-2024 Albumin/Globulin [Mass ratio] 1.2 {ratio} [facility] Comment on above: Performed By: #### M Ines, PHOS, CMP, DIFF CBC ####[facility] [id number] [place] [address] Albumin/Globulin [Mass ratio] Serum or plasma albumin/globulin mass ratio [facility] Serum or plasma anion gap de terminationOrdered By: João Powell on 03-06-2024 Anion gap [Moles/Vol] 9.9 mmol/L Normal 6.0-15.0 [facility] Comment on above: Performed By: #### M G, PHOS, CMP, DIFF CBC ####[facility] [id number] [place] [address] Anion gap [Moles/Vol] Serum or plasma an ion gap determination 6.0-15.0 [facility] Sodium [Moles/volume] in Ser um or PlasmaOrdered By: João Powell on 03-06-2024 Sodium [Moles/Vol] 137 mmol/L Normal 136-145 [facility] Comment on above: Performed By: #### M G, PHOS, CMP, DIFF CBC ####[place] [id number] [facility] [[email or web address]] Sodium [Moles/Vol] Sodium [Moles/volume ] in Serum or Plasma 136-145 [facility] Teardrop cell detectionOrder ed By: João Powell on 03-06-2024 Dacrocytes LM Ql (Bld) Slight [facility] Urea nitrogen [Mass/volume] in Serum or PlasmaOrdered By: João Powell on 03-06-2024 Urea nitrogen [Mass/Vol] 17 mg/dL Normal 12-27 [facility] Comment on above: Performed By: #### M G, PHOS, CMP, DIFF CBC ####[place] [id number] Urea nitrogen [Mass/Vol] Urea nitrogen [Mass/volume] in Serum or Plasma 12-27 [facility] WBC Auto (Bld) [#/Vol]Ordere d By: João Powell on 03-06-2024 WBC (Bld) [#/Vol] Leukocytes [#/volume ] in Blood by Automated count 4.1-10.5 [facility] Complete Blood Count Auto Di ffon 03-05-2024 Basophils (Bld) [#/Vol] 0.1 10*3/uL Normal 0.0-0.2 [facility] Comment on above: Result Comment: PERF ORMED BY:[address] [place], [place] [id number] MEDICAL DIRECTORCLIFFORD LOBATO M.D. Performed By: #### P HOS, MG, CBC, CMP ####[place] [id number] [facility] [[email or web address]] Basophils/100 WBC (Bld) 1.1 % Normal . [facility] Comment on above: Performed By: #### P HOS, MG, CBC, CMP ####[place] [id number] [facility] [[email or web address]] Eosinophils (Bld) [#/Vol] 0.2 10*3/uL Normal 0.0-0.45 [facility] Comment on above: Performed By: #### P HOS, MG, CBC, CMP ####[address] Eosinophils/100 WBC (Bld) 2.8 % Normal . [facility] Comment on above: Performed By: #### P HOS, MG, CBC, CMP ####[address] Erythrocyte distribution width (RBC) [Ratio] 21.4 % High 12.0-14.8 [facility] Comment on above: Performed By: #### P HOS, MG, CBC, CMP ####[address] Hematocrit (Bld) [Volume fraction] 26.8 % Low 38.8-50.0 [facility] Comment on above: Performed By: #### P HOS, MG, CBC, CMP ####[address] Hemoglobin (Bld) [Mass/Vol] 8.6 g/dL Low 13.0-17.0 [facility] Comment on above: Performed By: #### P HOS, MG, CBC, CMP ####[address] Lymphocytes (Bld) [#/Vol] 1.3 10*3/uL Normal 1.00-4.8 [facility] Comment on above: Performed By: #### P HOS, MG, CBC, CMP ####[address] Lymphocytes/100 WBC (Bld) 16.1 % Normal . [facility] Comment on above: Performed By: #### P HOS, MG, CBC, CMP ####[address] MCH (RBC) [Entitic mass] 22.4 pg Low 27.5-35.2 [facility] Comment on above: Performed By: #### P HOS, MG, CBC, CMP ####[address] MCV (RBC) [Entitic vol] 70.1 fL Low 83.5-101 [facility] Comment on above: Performed By: #### P HOS, MG, CBC, CMP ####[address] Mean Corpuscular HGB Conc 31.9 g/dL Low 32.5-35.6 [facility] Comment on above: Performed By: #### P HOS, MG, CBC, CMP ####[address] Monocytes (Bld) [#/Vol] 1.0 10*3/uL High 0.0-0.8 [facility] Comment on above: Performed By: #### P HOS, MG, CBC, CMP ####[address] Monocytes/100 WBC (Bld) 12.4 % Normal . [facility] Comment on above: Performed By: #### P HOS, MG, CBC, CMP ####[address] Neutrophils (Bld) [#/Vol] 5.6 10*3/uL Normal 1.8-7.7 [facility] Comment on above: Performed By: #### P HOS, MG, CBC, CMP ####[address] Neutrophils/100 WBC (Bld) 67.6 % Normal . [facility] Comment on above: Performed By: #### P HOS, MG, CBC, CMP ####[address] NRBC% 0.0 /100{WBC} Normal 0-0.5 [facility] Comment on above: Performed By: #### P HOS, MG, CBC, CMP ####[address] Platelet mean volume (Bld) [Entitic vol] 7.9 fL Normal 6.6-10.1 [facility] Comment on above: Performed By: #### P HOS, MG, CBC, CMP ####[address] Platelets (Bld) [#/Vol] 361 10*3/uL Normal 150-450 [facility] Comment on above: Performed By: #### P HOS, MG, CBC, CMP ####[address] RBC (Bld) [#/Vol] 3.83 10*6/uL Low 3.90-5.60 [facility] Comment on above: Performed By: #### P HOS, MG, CBC, CMP ####[address] WBC (Bld) [#/Vol] 8.3 10*3/uL Normal 4.1-10.5 [facility] Comment on above: Performed By: #### P HOS, MG, CBC, CMP ####[address] Comprehensive Metabolic Pane guy 03-05-2024 Albumin [Mass/Vol] 3.3 g/dL Low 3.5-5.7 [facility] Comment on above: Performed By: #### P HOS, MG, CBC, CMP ####[address] Albumin/Globulin [Mass ratio] 1.2 {ratio} Normal [facility] Comment on above: Performed By: #### P HOS, MG, CBC, CMP ####[address] ALP [Catalytic activity/Vol] 98 U/L Normal 34-104 [facility] Comment on above: Performed By: #### P HOS, MG, CBC, CMP ####[address] ALT [Catalytic activity/Vol] 10 U/L Normal 7-52 [facility] Comment on above: Performed By: #### P HOS, MG, CBC, CMP ####[address] Anion gap [Moles/Vol] 9.9 mmol/L Normal 6.0-15.0 [facility] Comment on above: Performed By: #### P HOS, MG, CBC, CMP ####[address] AST [Catalytic activity/Vol] 14 U/L Normal 13-39 [facility] Comment on above: Performed By: #### P HOS, MG, CBC, CMP ####[address] Bilirubin [Mass/Vol] 0.3 mg/dL Normal 0.3-1.0 [facility] Comment on above: Performed By: #### P HOS, MG, CBC, CMP ####[address] Calcium [Mass/Vol] 8.6 mg/dL Normal 8.6-10.3 [facility] Comment on above: Performed By: #### P HOS, MG, CBC, CMP ####[address] Chloride [Moles/Vol] 107 mmol/L Normal 98-107 [facility] Comment on above: Performed By: #### P HOS, MG, CBC, CMP ####[address] CO2 [Moles/Vol] 25.2 mmol/L Normal 21.0-31.0 [facility] Comment on above: Performed By: #### P HOS, MG, CBC, CMP ####[address] Creatinine [Mass/Vol] 1.49 mg/dL High 0.70-1.30 [facility] Comment on above: Performed By: #### P HOS, MG, CBC, CMP ####[place] [id number] [facility] [[email or web address]] Creatinine Clr Calc Pharmacy 59.31 Normal [facility] Comment on above: Performed By: #### P HOS, MG, CBC, CMP ####[address] [place] [address] [facility] [[email or web address]] GFR/1.73 sq M.predicted MDRD (S/P/Bld) [Vol rate/Area] 54.062 mL/min/{1.73_m2} Normal [facility] Comment on above: Performed By: #### P HOS, MG, CBC, CMP ####[place] [id number] [facility] [[email or web address]] Globulin (S) [Mass/Vol] 2.8 g/dL Normal [facility] Comment on above: Performed By: #### P HOS, MG, CBC, CMP ####[address] Glucose [Mass/Vol] 105 mg/dL High 70-100 [facility] Comment on above: Result Comment: [facility] Glucose Reference Range is dependent on time and content of last meal. Glucose of more than 200 mg/dL in a nonstressed, ambulatory subject supports the diagnosis of Diabetes Mellitus. ADA recommended reference range Performed By: #### P HOS, MG, CBC, CMP ####[place] [id number] [facility] [[email or web address]] Potassium [Moles/Vol] 4.1 mmol/L Normal 3.5-5.1 [facility] Comment on above: Performed By: #### P HOS, MG, CBC, CMP ####[place] [id number] [facility] [[email or web address]] Protein [Mass/Vol] 6.1 g/dL Low 6.4-8.9 [facility] Comment on above: Performed By: #### P HOS, MG, CBC, CMP ####[place] [id number] [facility] [[email or web address]] Sodium [Moles/Vol] 138 mmol/L Normal 136-145 [facility] Comment on above: Performed By: #### P HOS, MG, CBC, CMP ####[place] [id number] [facility] [[email or web address]] Urea nitrogen [Mass/Vol] 24 mg/dL Normal 7-25 [facility] Comment on above: Performed By: #### P HOS, MG, CBC, CMP ####[address] [address] [facility] [[email or web address]] Glucose Poct Glucometerson 1 Glucose [Mass/Vol] 151 mg/dL Normal [facility] Comment on above: Result Comment: [facility] Glucose Reference Range is dependent on time and content of last meal. Glucose of more than 200 mg/dL in a nonstressed, ambulatory subject supports the diagnosis of Diabetes Mellitus.PERFORMED BY:[address] [place], [place] [id number] MEDICAL DIRECTORCLIFFORD LOBATO M.D. Performed By: #### G LULS ####Point of Care testing, Glucose [Mass/Vol] 106 mg/dL Normal [facility] Comment on above: Result Comment: [facility] Glucose Reference Range is dependent on time and content of last meal. Glucose of more than 200 mg/dL in a nonstressed, ambulatory subject supports the diagnosis of Diabetes Mellitus.PERFORMED BY:[address] [place], [place] [id number] MEDICAL DIRECTORCLIFFORD LOBATO M.D. Performed By: #### G LULS ####Point of Care testing, Glucose [Mass/Vol] 132 mg/dL Normal [facility] Comment on above: Result Comment: [facility] Glucose Reference Range is dependent on time and content of last meal. Glucose of more than 200 mg/dL in a nonstressed, ambulatory subject supports the diagnosis of Diabetes Mellitus.PERFORMED BY:[address] [place], [place] [phone] MEDICAL BRISA LOBATO M.D. Performed By: #### G LULS ####Point of Care testing, Commemt1 Glu2: Cleaned Meter Normal [facility] Comment on above: Result Comment: PERF ORMED BY:[address] [place] [id number] MEDICAL DIRECTORCLIFFORD LOBATO M.D. Performed By: #### G LULS ####Point of Care testing, Glucose [Mass/Vol] 151 mg/dL Normal [facility] Comment on above: Result Comment: [facility] Glucose Reference Range is dependent on time and content of last meal. Glucose of more than 200 mg/dL in a nonstressed, ambulatory subject supports the diagnosis of Diabetes Mellitus. Performed By: #### G LULS ####Point of Care testing, Magnesiumon 03-05-2024 Magnesium [Mass/Vol] 1.4 mg/dL Low 1.9-2.7 [facility] Comment on above: Result Comment: PERF ORMED BY:[address] [place], [place] [id number] MEDICAL DIRECTORCLIFFORD LOBATO M.D. Performed By: #### P HOS, MG, CBC, CMP ####[place] [id number] [facility] [[email or web address]] No Panel InformationOrdered By: João Powell on 03-05-2024 Bedside Glucose Comment Glu2: cleaned meter [facility] Glu2: cleaned meter [facility] Phosphoruson 03-05-2024 Phosphate [Mass/Vol] 3.1 mg/dL Normal 2.5-4.5 [facility] Comment on above: Performed By: #### P HOS, MG, CBC, CMP ####[address] [address] [facility] [[email or web address]] US carotid doppler BIon 10-0 US carotid doppler BI Normal [facility] ABO/Rh Retypeon 03-04-2024 ABO/RH Recheck Result Positive Normal [facility] Comment on above: Result Comment: PERF ORMED BY:[address] [place], [place] [phone] MEDICAL DIRECTORCLIFFORD LOBATO M.D. Comprehensive Metabolic Pane guy 03-04-2024 Albumin [Mass/Vol] 3.3 g/dL Low 3.5-5.7 [facility] Comment on above: Performed By: #### M G, PHOS, SCAN CBC, CMP ####[address] [address] [place] Albumin/Globulin [Mass ratio] 1.1 {ratio} Normal [facility] Comment on above: Performed By: #### M G, PHOS, SCAN CBC, CMP ####[address] ALP [Catalytic activity/Vol] 105 U/L High 34-104 [facility] Comment on above: Performed By: #### M G, PHOS, SCAN CBC, CMP ####[address] ALT [Catalytic activity/Vol] 9 U/L Normal 7-52 [facility] Comment on above: Performed By: #### M G, PHOS, SCAN CBC, CMP ####[address] Anion gap [Moles/Vol] 11.1 mmol/L Normal 6.0-15.0 [facility] Comment on above: Performed By: #### M G, PHOS, SCAN CBC, CMP ####[address] AST [Catalytic activity/Vol] 11 U/L Low 13-39 [facility] Comment on above: Performed By: #### M G, PHOS, SCAN CBC, CMP ####[address] Bilirubin [Mass/Vol] 0.2 mg/dL Low 0.3-1.0 [facility] Comment on above: Performed By: #### M G, PHOS, SCAN CBC, CMP ####[address] Calcium [Mass/Vol] 8.3 mg/dL Low 8.6-10.3 [facility] Comment on above: Performed By: #### M G, PHOS, SCAN CBC, CMP ####[address] Chloride [Moles/Vol] 104 mmol/L Normal 98-107 [facility] Comment on above: Performed By: #### M G, PHOS, SCAN CBC, CMP ####[place] [id number] CO2 [Moles/Vol] 27.6 mmol/L Normal 21.0-31.0 [facility] Comment on above: Performed By: #### M G, PHOS, SCAN CBC, CMP ####[place] [id number] [facility] [[email or web address]] Creatinine [Mass/Vol] 1.83 mg/dL High 0.70-1.30 [facility] Comment on above: Performed By: #### M G, PHOS, SCAN CBC, CMP ####[place] [id number] Creatinine Clr Calc Pharmacy 48.29 Normal [facility] Comment on above: Performed By: #### M G, PHOS, SCAN CBC, CMP ####[address] GFR/1.73 sq M.predicted MDRD (S/P/Bld) [Vol rate/Area] 42.245 mL/min/{1.73_m2} Normal [facility] Comment on above: Performed By: #### M G, PHOS, SCAN CBC, CMP ####[address] Globulin (S) [Mass/Vol] 2.9 g/dL Normal [facility] Comment on above: Performed By: #### M G, PHOS, SCAN CBC, CMP ####[address] Glucose [Mass/Vol] 150 mg/dL High 70-100 [facility] Comment on above: Result Comment: [facility] Glucose Reference Range is dependent on time and content of last meal. Glucose of more than 200 mg/dL in a nonstressed, ambulatory subject supports the diagnosis of Diabetes Mellitus. ADA recommended reference range Performed By: #### M G, PHOS, SCAN CBC, CMP ####[address] Potassium [Moles/Vol] 3.7 mmol/L Normal 3.5-5.1 [facility] Comment on above: Performed By: #### M G, PHOS, SCAN CBC, CMP ####[address] Protein [Mass/Vol] 6.2 g/dL Low 6.4-8.9 [facility] Comment on above: Performed By: #### M G, PHOS, SCAN CBC, CMP ####[address] Sodium [Moles/Vol] 139 mmol/L Normal 136-145 [facility] Comment on above: Performed By: #### M G, PHOS, SCAN CBC, CMP ####[address] Urea nitrogen [Mass/Vol] 36 mg/dL High 7-25 [facility] Comment on above: Performed By: #### M G, PHOS, SCAN CBC, CMP ####[address] ECH echo transthoracicon ECH echo transthoracic Normal [facility] e [facility] Ferritinon 03-04-2024 Ferritin Normal 23.9-336.2 [facility] Comment on above: Order Comment: Comme nt add Result Comment: Spec imen hemolyzed, redraw requested Performed By: #### T SH3, LILA, FE and TIBC, [id number] ####[address] Ferritin [Mass/volume] in Se rum or PlasmaOrdered By: João Powell on 03-04-2024 Ferritin [Mass/Vol] 7.7 ng/mL Low 23.9-336.2 [facility] Ferritin [Mass/Vol] Ferritin [Mass/volum e] in Serum or Plasma Low 23.9-336.2 [facility] Folate [Mass/volume] in Seru m or PlasmaOrdered By: João Powell on 03-04-2024 Folate [Mass/Vol] 7.8 ng/mL >5.9 [facility] Comment on above: Folate reference ran ge: >5.9 ng/mlThe WHO technical consultation on folate and vitamin [id number] has determined that folate concentrations lessthan 4 ng/ml are considered deficient. Folate [Mass/Vol] Folate [Mass/volume] in Serum or Plasma >5.9 [facility] Comment on above: Folate reference ran ge: >5.9 ng/mlThe WHO technical consultation on folate and vitamin [id number] has determined that folate concentrations lessthan 4 ng/ml are considered deficient. Glucose Poct Glucometerson 0 03-04-2024 Commemt1 Glu2: Cleaned Meter Normal [facility] Comment on above: Result Comment: PERF ORMED BY:[place] [address] [address] [place], [place] [phone] MEDICAL DIRECTORCLIFFORD LOBATO M.D. Performed By: #### G LULS ####Point of Care testing, Glucose [Mass/Vol] 213 mg/dL Normal [facility] Comment on above: Result Comment: [facility] Glucose Reference Range is dependent on time and content of last meal. Glucose of more than 200 mg/dL in a nonstressed, ambulatory subject supports the diagnosis of Diabetes Mellitus. Performed By: #### G LULS ####Point of Care testing, Glucose [Mass/Vol] 279 mg/dL Normal [facility] Comment on above: Result Comment: [facility] Glucose Reference Range is dependent on time and content of last meal. Glucose of more than 200 mg/dL in a nonstressed, ambulatory subject supports the diagnosis of Diabetes Mellitus.PERFORMED BY:[place] [address] [address] [place], [place] [phone] MEDICAL DIRECTORCLIFFORD LOBATO M.D. Performed By: #### G LULS ####Point of Care testing, Glucose [Mass/Vol] 236 mg/dL Normal [facility] Comment on above: Result Comment: [place] Glucose Reference Range is dependent on time and content of last meal. Glucose of more than 200 mg/dL in a nonstressed, ambulatory subject supports the diagnosis of Diabetes Mellitus.PERFORMED BY:[place] [address] [address] [place], [place] [phone] MEDICAL DIRECTORCLIFFORD LOBATO M.D. Performed By: #### G NELI ####Point of Care testing, Glucose [Mass/Vol] 242 mg/dL Normal [facility] Comment on above: Result Comment: [facility] Glucose Reference Range is dependent on time and content of last meal. Glucose of more than 200 mg/dL in a nonstressed, ambulatory subject supports the diagnosis of Diabetes Mellitus.PERFORMED BY:[place] [address] [address] [place], [place] [phone] MEDICAL DIRECTORCLIFFORD LOBATO M.D. Performed By: #### G NELI ####Point of Care testing, Iron [Mass/volume] in Serum or PlasmaOrdered By: João Powell on 03-04-2024 Iron [Mass/Vol] 13 ug/dL Low 50-212 [facility] Comment on above: Order Comment: Comme nt add Performed By: #### T SH3, LILA, FE and TIBC, [id number] ####[place] [id number] [facility] [[email or web address]] Iron [Mass/Vol] Iron [Mass/volume] i n Serum or Plasma Low 50-212 [facility] Iron and TIBC Profileon 02-05 0-2023 % Iron Saturation 3.2 % Low 20-50 [facility] Comment on above: Order Comment: Comme nt add Performed By: #### T SH3, LILA, FE and TIBC, [id number] ####[place] [id number] [place] [id number] [facility] [[email or web address]] Total Iron Binding Capacity 403 ug/dL Normal 255-450 [facility] Comment on above: Order Comment: Comme nt add Performed By: #### T SH3, LILA, FE and TIBC, [id number] ####[place] [id number] [facility] [[email or web address]] Iron binding capacity [Mass/ volume] in Serum or PlasmaOrdered By: João Powell on 03-04-2024 Iron binding capacity [Mass/Vol] 403 ug/dL 255-450 [facility] Iron saturation [Mass Fracti on] in Serum or PlasmaOrdered By: João Powell on 03-04-2024 Iron saturation [Mass fraction] 3.2 % Low 20-50 [facility] LeukoReduced RBCon LeukoReduced RBC TRANSFUSED 03/04/24 1657 Normal [facility] MR angio MR brain w/oon 02-05 MR angio MR brain w/o Normal [facility] Magnesiumon 03-04-2024 Magnesium [Mass/Vol] 1.3 mg/dL Low 1.9-2.7 [facility] Comment on above: Result Comment: PERF ORMED BY:[address] [place], [place] [phone] MEDICAL DIRECTORCLIFFORD LOBATO M.D. Performed By: #### M G, PHOS, SCAN CBC, CMP ####[address] Ovalocyte detectionOrdered B y: João Powell on 03-04-2024 Ovalocytes LM Ql (Bld) Slight Fi [facility] Ovalocytes [Presence] in Blo od by Light microscopyOrdered By: João Powell on 03-04-2024 Ovalocytes LM Ql (Bld) Ovalocyte detection [facility] Phosphoruson 03-04-2024 Phosphate [Mass/Vol] 3.5 mg/dL Normal 2.5-4.5 [facility] Comment on above: Performed By: #### M G, PHOS, SCAN CBC, CMP ####[place] [id number] [facility] [[email or web address]] Redraw Ferritinon 03-04-2024 Redraw Ferritin 7.7 ng/mL Low 23.9-336.2 [facility] Comment on above: Performed By: #### T SH3, REDRAW B12, REDRAW LILA, REDRAW FOLATE ####[address] [address] [facility] [[email or web address]] Redraw Folateon 03-04-2024 Redraw Folate 7.8 ng/mL Normal >5.9 [facility] Comment on above: Result Comment: Aure te reference range: >5.9 ng/ml The WHO technical consultation on folate and vitamin b12 deficiencies has determined that folate concentrations less than 4 ng/ml are considered deficient. Performed By: #### T SH3, REDRAW B12, REDRAW LILA, REDRAW FOLATE ####[address] Scan and CBCon 03-04-2024 Anisocytosis Ql (Bld) Moderate Normal [facility] Comment on above: Performed By: #### M G, PHOS, SCAN CBC, CMP ####[address] Basophils (Bld) [#/Vol] 0.1 10*3/uL Normal 0.0-0.2 [facility] Comment on above: Performed By: #### M G, PHOS, SCAN CBC, CMP ####[address] Basophils/100 WBC (Bld) 2.4 % Normal . [facility] Comment on above: Performed By: #### M G, PHOS, SCAN CBC, CMP ####[address] Eosinophils (Bld) [#/Vol] 0.2 10*3/uL Normal 0.0-0.45 [facility] Comment on above: Performed By: #### M G, PHOS, SCAN CBC, CMP ####[address] Eosinophils/100 WBC (Bld) 3.6 % Normal . [facility] Comment on above: Performed By: #### M G, PHOS, SCAN CBC, CMP ####[address] Erythrocyte distribution width (RBC) [Ratio] 20.8 % High 12.0-14.8 [facility] Comment on above: Performed By: #### M G, PHOS, SCAN CBC, CMP ####[address] Hematocrit (Bld) [Volume fraction] 23.7 % Low 38.8-50.0 [facility] Comment on above: Performed By: #### M Ines, PHOS, SCAN CBC, CMP ####[address] Hemoglobin (Bld) [Mass/Vol] 7.4 g/dL Low 13.0-17.0 [facility] Comment on above: Performed By: #### M Ines, PHOS, SCAN CBC, CMP ####[address] Hypochromasia Slight Normal [facility] Comment on above: Performed By: #### M Ines, PHOS, SCAN CBC, CMP ####[address] Lymphocytes (Bld) [#/Vol] 1.3 10*3/uL Normal 1.00-4.8 [facility] Comment on above: Performed By: #### Sarika Chacon, PHOS, SCAN CBC, CMP ####[address] Lymphocytes/100 WBC (Bld) 22.8 % Normal . [facility] Comment on above: Performed By: #### M Ines PHOS, SCAN CBC, CMP ####[address] MCH (RBC) [Entitic mass] 21.8 pg Low 27.5-35.2 [facility] Comment on above: Performed By: #### M Ines, PHOS, SCAN CBC, CMP ####[address] MCV (RBC) [Entitic vol] 69.5 fL Low 83.5-101 [facility] Comment on above: Performed By: #### M Ines, PHOS, SCAN CBC, CMP ####[address] Mean Corpuscular HGB Conc 31.3 g/dL Low 32.5-35.6 [facility] Comment on above: Performed By: #### M Ines, PHOS, SCAN CBC, CMP ####[address] Monocytes (Bld) [#/Vol] 0.9 10*3/uL High 0.0-0.8 [facility] Comment on above: Performed By: #### M G, PHOS, SCAN CBC, CMP ####[address] Monocytes/100 WBC (Bld) 16.7 % Normal . [facility] Comment on above: Performed By: #### M G, PHOS, SCAN CBC, CMP ####[address] Neutrophils (Bld) [#/Vol] 3.0 10*3/uL Normal 1.8-7.7 [facility] Comment on above: Performed By: #### M G, PHOS, SCAN CBC, CMP ####[address] Neutrophils/100 WBC (Bld) 54.5 % Normal . [facility] Comment on above: Performed By: #### M G, PHOS, SCAN CBC, CMP ####[address] NRBC% 0.3 /100{WBC} Normal 0-0.5 [facility] Comment on above: Performed By: #### M G, PHOS, SCAN CBC, CMP ####[address] Ovalocytes Slight Normal [facility] Comment on above: Performed By: #### M G, PHOS, SCAN CBC, CMP ####[address] Platelet Estimate Normal Normal Normal [facility] Comment on above: Performed By: #### M G, PHOS, SCAN CBC, CMP ####[address] Platelet mean volume (Bld) [Entitic vol] 8.2 fL Normal 6.6-10.1 [facility] Comment on above: Performed By: #### M G, PHOS, SCAN CBC, CMP ####[address] [address] [facility] [[email or web address]] Platelet Morphology Normal Normal Normal [facility] Comment on above: Result Comment: PERF ORMED BY:[address] [place], [place] [phone] MEDICAL DIRECTORCLIFFORD LOBATO M.D. Performed By: #### M G, PHOS, SCAN CBC, CMP ####[address] [address] [facility] [[email or web address]] Platelets (Bld) [#/Vol] 394 10*3/uL Normal 150-450 [facility] Comment on above: Performed By: #### M G, PHOS, SCAN CBC, CMP ####[place] [address] [place] [address] [facility] [[email or web address]] Polychromasia Slight Normal [facility] Comment on above: Performed By: #### M G, PHOS, SCAN CBC, CMP ####[address] [address] [facility] [[email or web address]] RBC (Bld) [#/Vol] 3.41 10*6/uL Low 3.90-5.60 [facility] Comment on above: Performed By: #### M G, PHOS, SCAN CBC, CMP ####[place] [address] [place] [address] [facility] [[email or web address]] WBC (Bld) [#/Vol] 5.5 10*3/uL Normal 4.1-10.5 [facility] Comment on above: Performed By: #### M G, PHOS, SCAN CBC, CMP ####[address] [address] [facility] [[email or web address]] Serum or plasma iron binding capacity measurement (mass/volume)Ordered By: João Powell on 03-04-2024 Iron binding capacity [Mass/Vol] Iron binding capacity [Mass/volume] in Serum or Plasma 255-450 [facility] Serum or plasma iron saturat ion measurement (mass fraction)Ordered By: João Powell on 03-04-2024 Iron saturation [Mass fraction] Iron saturation [Mass Fraction] in Serum or Plasma Low 20-50 [facility] Thyroid Stimulating Hormoneo n 03-04-2024 Thyroid Stimulating Hormone Normal 0.45-5.33 [facility] Comment on above: Order Comment: Comme nt add Result Comment: Spec imen hemolyzed, redraw requestedPERFORMED BY:[address] [place], [place] [phone] MEDICAL DIRECTORCLIFFORD LOBATO M.D. Performed By: #### T SH3, LILA, FE and TIBC, [id number] ####[address] [address] [facility] [[email or web address]] Thyrotropin [Units/volume] i n Serum or PlasmaOrdered By: João Powell on 03-04-2024 TSH Qn 2.90 m[IU]/L Normal 0.45-5.33 [facility] Comment on above: Result Comment: PERF ORMED BY:[address] [place], [place] [phone] MEDICAL DIRECTORCLIFFORD LOBATO M.D. Performed By: #### T SH3, REDRAW B12, REDRAW LILA, REDRAW FOLATE ####[place] [id number] [facility] [[email or web address]] TSH Qn Thyrotropin [Units/volume] in Serum or Plasma 0.45-5.33 [facility] Transferrin [Mass/volume] in Serum or PlasmaOrdered By: João Powell on 03-04-2024 Transferrin [Mass/Vol] 288 mg/dL Normal 203-362 [facility] Comment on above: Order Comment: Comme nt add Performed By: #### T SH3, LILA, FE and TIBC, [id number] ####[place] [id number] [facility] [[email or web address]] Transferrin [Mass/Vol] Transferrin [Mass /volume] in Serum or Plasma 203-362 [facility] Type and Screenon 03-04-2024 ABO and Rh group Nom (Bld) Blood group O Rh(D) positive Normal [facility] Comment on above: Order Comment: Numbe r of units to transfuse now? 1 Result Comment: PERF ORMED BY:[place] [address] [address] [place], [place] [phone] MEDICAL DIRECTORCLIFFORD LOBATO M.D. Vit. B12/Folate Profileon Folate Normal >5.9 [facility] Comment on above: Order Comment: Comme nt add Result Comment: Spec imen hemolyzed, redraw requested Folate reference range: >5.9 ng/ml The WHO technical consultation on folate and vitamin b12 deficiencies has determined that folate concentrations less than 4 ng/ml are considered deficient.PERFORMED BY:[place] [address] [address] [place], [place] [phone] MEDICAL DIRECTORCLIFFORD LOBATO M.D. Performed By: #### T SH3, LILA, FE and TIBC, [id number] ####[place] [id number] [facility] [[email or web address]] Vitamin B12 Normal 180-4 [facility] Comment on above: Order Comment: Comme nt add Result Comment: Spec imen hemolyzed, redraw requested Performed By: #### T SH3, LILA, FE and TIBC, [id number] ####[address] [address] [facility] [[email or web address]] Vitamin B12 ser/plasOrdered By: João Powell on 03-04-2024 Cobalamin (Vitamin B12) [Mass/Vol] 170 pg/mL Low 180-914 [facility] Comment on above: Performed By: #### T SH3, REDRAW B12, REDRAW LILA, REDRAW FOLATE ####[place] [id number] [facility] [[email or web address]] Cobalamin (Vitamin B12) [Mass/Vol] Vitamin B12 ser/plas Low 180-914 [facility] XR knee RT 2Von 03-04-2024 XR knee RT 2V Normal [facility] Anisocytosis [Presence] in B lood by Light microscopyOrdered By: Kait Dan on 09-29-2024 Anisocytosis Ql (Bld) Marked Normal [facility] Comment on above: Performed By: #### H S TROP, SCAN CBC, BNP, BMP ####[address] Appearance of UrineOrdered B y: Kait Dan on 03-03-2024 Appearance (U) Urine appearance Clear [facility] Automated basophil %Ordered By: Kait Dan on 03-03-2024 Basophils/100 WBC (Bld) 1.7 % Normal . [facility] Comment on above: Performed By: #### H S TROP, SCAN CBC, BNP, BMP ####[address] Automated basophil countOrde red By: Kait Dan on 03-03-2024 Basophils (Bld) [#/Vol] 0.1 10*3/uL Normal 0.0-0.2 [facility] Comment on above: Performed By: #### H S TROP, SCAN CBC, BNP, BMP ####[address] Automated blood monocyte cou ntOrdered By: Kait Dan on 03-03-2024 Monocytes (Bld) [#/Vol] 0.8 10*3/uL Normal 0.0-0.8 [facility] Comment on above: Performed By: #### H S TROP, SCAN CBC, BNP, BMP ####[address] Automated eosinophil %Ordere d By: Kait Dan on 03-03-2024 Eosinophils/100 WBC (Bld) 3.2 % Normal . [facility] Comment on above: Performed By: #### H S TROP, SCAN CBC, BNP, BMP ####[address] Automated eosinophil countOr dered By: Kait Dan on 03-03-2024 Eosinophils (Bld) [#/Vol] 0.2 10*3/uL Normal 0.0-0.45 [facility] Comment on above: Performed By: #### H S TROP, SCAN CBC, BNP, BMP ####[place] [address] [place] [address] [facility] [[email or web address]] Automated monocyte %Ordered By: Kait Dan on 03-03-2024 Monocytes/100 WBC (Bld) 11.3 % Normal . [facility] Comment on above: Performed By: #### H S TROP, SCAN CBC, BNP, BMP ####[place] [address] [place] [phone] [facility] [[email or web address]] Automated neutrophil %Ordere d By: Kait Dan on 03-03-2024 Neutrophils/100 WBC (Bld) 65.6 % Normal . [facility] Comment on above: Performed By: #### H S TROP, SCAN CBC, BNP, BMP ####[place] [address] [place] [id number] [facility] [[email or web address]] BNP ser/plasOrdered By: Delfina Dan on 03-03-2024 Natriuretic peptide B (Bld) [Mass/Vol] 23.0 pg/mL Normal 5-100 [facility] Comment on above: Result Comment: PERF ORMED BY:[address] [place], [place] [phone] MEDICAL DIRECTORCLIFFORD LOBATO M.D. Performed By: #### H S TROP, SCAN CBC, BNP, BMP ####[place] [id number] [place] [phone] [facility] [[email or web address]] Basic Metabolic Panelon 02-04 Creatinine Clr Calc Pharmacy 44.86 Normal [facility] Comment on above: Result Comment: PERF ORMED BY:[address] [place], [place] [phone] MEDICAL DIRECTORCLIFFORD LOBATO M.D. Performed By: #### H S TROP, SCAN CBC, BNP, BMP ####[address] [address] [facility] [[email or web address]] GFR/1.73 sq M.predicted MDRD (S/P/Bld) [Vol rate/Area] 38.669 mL/min/{1.73_m2} Normal [facility] Comment on above: Performed By: #### H S TROP, SCAN CBC, BNP, BMP ####[place] [address] [place] [id number] [facility] [[email or web address]] Bilirubin Test strip Ql (U)O rdered By: Kait Dan on 03-03-2024 Bilirubin Ql (U) Negative Negative [facility] Bilirubin Ql (U) Bilirubin.total [Presence] in Urine by Test strip Negative [facility] COVID CepheidOrdered By: Jeremi jana Sy on 03-03-2024 SARS-CoV-2 (COVID-19) Ab IA Ql Negative Negative [facility] Comment on above: This is a duplicate Cepheid Xpert Xpress CoV-2/Flu/RSV Plus RNA by RT-PCR result to be used for statistical tracking purpose only. SARS-CoV-2 (COVID-19) RNA NELLY+probe Ql (Unsp spec) Normal [facility] Comment on above: Performed By: #### C EPHEID NEG, UA, COVID19 FLU RSV ####[place] [id number] [place] [id number] [facility] [[email or web address]] SARS-CoV-2 (COVID-19) RNA NELLY+probe Ql (Unsp spec) Negative Normal Negative [facility] Comment on above: Result Comment: This is a duplicate Cepheid Xpert Xpress CoV-2/Flu/RSV Plus RNA by RT-PCR result to be used for statistical tracking purpose only.PERFORMED BY:[address] [place], [place] [phone] MEDICAL BRISA LOBATO M.D. Performed By: #### C EPHEID NEG, UA, COVID19 FLU RSV ####[place] [id number] [facility] [[email or web address]] COVID Cepheid NegativeOrdere d By: Kait Dan on 03-03-2024 SARS-CoV-2 (COVID-19) Ab IA Ql COVID Cepheid Negative [facility] Comment on above: This is a duplicate Cepheid Xpert Xpress CoV-2/Flu/RSV Plus RNA by RT-PCR result to be used for statistical tracking purpose only. CT abdomen pelvis w conon CT abdomen pelvis w con Normal [facility] CT head/brain wo conon 03-03 CT head/brain wo con Normal [facility] Calcium [Mass/volume] in Ser um or PlasmaOrdered By: Kait Dan on 03-03-2024 Calcium [Mass/Vol] 8.6 mg/dL Normal 8.6-10.3 [facility] Comment on above: Performed By: #### H S TROP, SCAN CBC, BNP, BMP ####[place] [id number] [place] [id number] [facility] [[email or web address]] Capillary blood glucose ashley urement by glucometer (mass/volume)Ordered By: Kait Dan on 03-03-2024 Glucose [Mass/Vol] 167 mg/dL Normal [facility] Comment on above: Random Glucose Refer ence Range is dependent on time and content of last meal. Glucose of more than 200 mg/dL in a nonstressed, ambulatory subject supports the diagnosis of Diabetes Mellitus. Result Comment: Coolin om Glucose Reference Range is dependent on time and content of last meal. Glucose of more than 200 mg/dL in a nonstressed, ambulatory subject supports the diagnosis of Diabetes Mellitus.PERFORMED BY:[place] [address] [address] [place], [place] [phone] MEDICAL DIRECTORCLIFFORD LOBATO M.D. Performed By: #### G NELI ####Point of Care testing, Carbon dioxide, total [Moles /volume] in Serum or PlasmaOrdered By: Kait Dan on 03-03-2024 CO2 [Moles/Vol] 24.3 mmol/L Normal 21.0-31.0 [facility] Comment on above: Performed By: #### H S TROP, SCAN CBC, BNP, BMP ####[facility] [place] [id number] [facility] [[email or web address]] Chloride [Moles/volume] in S ilia or PlasmaOrdered By: Kait Dan on 03-03-2024 Chloride [Moles/Vol] 103 mmol/L Normal 98-107 [facility] Comment on above: Performed By: #### H S TROP, SCAN CBC, BNP, BMP ####[place] [address] [place] [id number] [facility] [[email or web address]] Color Auto (U)Ordered By: Martha Dan on 03-03-2024 Color (U) Color of Urine by Auto Yellow [facility] Color of Urine by AutoOrdere d By: Kait Dan on 03-03-2024 Color (U) Colorless Normal Yellow [facility] Comment on above: Order Comment: Name Collection Type:: Clean-Voided Midstream Performed By: #### C EPHEID NEG, UA, COVID19 FLU RSV ####[place] [address] [place] [address] [facility] [[email or web address]] Creatinine [Mass/volume] in Serum or PlasmaOrdered By: Kait Dan on 03-03-2024 Creatinine [Mass/Vol] 1.97 mg/dL High 0.70-1.30 [facility] Comment on above: Performed By: #### H S TROP, SCAN CBC, BNP, BMP ####[place] [address] [place] [address] [facility] [[email or web address]] ECG 12 lead ECGon 03-03-2024 ECG 12 lead ECG Normal [facility] Erythrocyte distribution wid th [Ratio] by Automated countOrdered By: Kait Dan on 03-03-2024 Erythrocyte distribution width (RBC) [Ratio] 20.9 % High 12.0-14.8 [facility] Comment on above: Performed By: #### H S TROP, SCAN CBC, BNP, BMP ####[place] [address] [place] [address] [facility] [[email or web address]] Erythrocytes [#/volume] in B lood by Automated countOrdered By: Kait Dan on 03-03-2024 RBC (Bld) [#/Vol] 3.58 10*6/uL Low 3.90-5.60 [facility] Comment on above: Performed By: #### H S TROP, SCAN CBC, BNP, BMP ####[address] [address] [facility] [[email or web address]] Glucose Poct Glucometerson 0 03-03-2024 Commemt1 Glu2: Cleaned Meter Normal [facility] Comment on above: Result Comment: PERF ORMED BY:[address] [place], [place] [phone] MEDICAL DIRECTORCLIFFORD LOBATO M.D. Performed By: #### G LULS ####Point of Care testing, Glucose [Mass/Vol] 204 mg/dL Normal [facility] Comment on above: Result Comment: Coolin om Glucose Reference Range is dependent on time and content of last meal. Glucose of more than 200 mg/dL in a nonstressed, ambulatory subject supports the diagnosis of Diabetes Mellitus. Performed By: #### G LULS ####Point of Care testing, Glucose [Mass/volume] in Ser um or PlasmaOrdered By: Kait Dan on 03-03-2024 Glucose [Mass/Vol] 142 mg/dL High 70-100 [facility] Comment on above: ADA recommended refe rence rangeRandom Glucose Reference Range is dependent on time and content of last meal. Glucose of more than 200 mg/dL in a nonstressed, ambulatory subject supports the diagnosis of Diabetes Mellitus. Result Comment: Coolin om Glucose Reference Range is dependent on time and content of last meal. Glucose of more than 200 mg/dL in a nonstressed, ambulatory subject supports the diagnosis of Diabetes Mellitus. ADA recommended reference range Performed By: #### H S TROP, SCAN CBC, BNP, BMP ####[facility] [id number] Glucose [Mass/volume] in Uri ne by Test stripOrdered By: Kait aDn on 03-03-2024 Glucose Test strip (U) [Mass/Vol] 500 mg/dL High Normal [facility] Glucose Test strip (U) [Mass/Vol] Glucose [Mass/volume] in Urine by Test strip [facility] Hematocrit [Volume Fraction] of Blood by Automated countOrdered By: Kait Dan on 03-03-2024 Hematocrit (Bld) [Volume fraction] 24.7 % Low 38.8-50.0 [facility] Comment on above: Performed By: #### H S TROP, SCAN CBC, BNP, BMP ####[facility] [id number] [place] [address] [facility] [[email or web address]] Hemoglobin Test strip Ql (U) Ordered By: Kait Dan on 03-03-2024 Hemoglobin Ql (U) Negative Negative [facility] Hemoglobin Ql (U) Hemoglobin [Presence ] in Urine by Test strip Negative [facility] Hemoglobin [Mass/volume] in BloodOrdered By: Kait Dan on 03-03-2024 Hemoglobin (Bld) [Mass/Vol] 7.8 g/dL Low 13.0-17.0 [facility] Comment on above: Performed By: #### H S TROP, SCAN CBC, BNP, BMP ####[facility] [id number] Hypochromia LM Ql (Bld)Order ed By: Kait Dan on 03-03-2024 Hypochromia Ql (Bld) Moderate [facility] Ketones Test strip Ql (U)Ord ered By: Kait Dan on 03-03-2024 Ketones Ql (U) Ketones [Presence] i n Urine by Test strip Negative [facility] Ketones [Presence] in Urine by Test stripOrdered By: Kait Dan on 03-03-2024 Ketones Ql (U) Negative Normal Negative [facility] Comment on above: Order Comment: Name Collection Type:: Clean-Voided Midstream Performed By: #### C EPHEID NEG, UA, COVID19 FLU RSV ####[facility] [id number] Leukocyte esterase [Presence ] in Urine by Test stripOrdered By: Kait Dan on 03-03-2024 Leukocyte esterase Test strip Ql (U) Negative Normal Negative [facility] Comment on above: Order Comment: Name Collection Type:: Clean-Voided Midstream Performed By: #### C EPHEID NEG, UA, COVID19 FLU RSV ####[facility] [id number] [place] [address] Leukocyte esterase Test strip Ql (U) Leukocyte esterase [Presence] in Urine by Test strip Negative [facility] Leukocytes [#/volume] correc jorge for nucleated erythrocytes in Blood by Automated counOrdered By: Kait Dan on 03-03-2024 WBC corrected for nucl RBC Auto (Bld) [#/Vol] 7.2 10*3/uL 4.1-10.5 [facility] Leukocytes [#/volume] in Blo od by Automated countOrdered By: Kait Dan on 03-03-2024 WBC (Bld) [#/Vol] 7.2 10*3/uL Normal 4.1-10.5 [facility] Comment on above: Performed By: #### H S TROP, SCAN CBC, BNP, BMP ####[place] [id number] Lymphocytes [#/volume] in Bl ood by Automated countOrdered By: Kait Dan on 03-03-2024 Lymphocytes (Bld) [#/Vol] 1.3 10*3/uL Normal 1.00-4.8 [facility] Comment on above: Performed By: #### H S TROP, SCAN CBC, BNP, BMP ####[place] [id number] Lymphocytes/100 leukocytes i n Blood by Automated countOrdered By: Kait Dan on 03-03-2024 Lymphocytes/100 WBC (Bld) 18.2 % Normal . [facility] Comment on above: Performed By: #### H S TROP, SCAN CBC, BNP, BMP ####[address] MCH [Entitic mass] by Automa jorge countOrdered By: Kait Dan on 03-03-2024 MCH (RBC) [Entitic mass] 21.8 pg Low 27.5-35.2 [facility] Comment on above: Performed By: #### H S TROP, SCAN CBC, BNP, BMP ####[address] MCHC Auto (RBC) [Mass/Vol]Or dered By: Kait Dan on 03-03-2024 MCHC (RBC) [Mass/Vol] 31.6 g/dL Low 32.5-35.6 [facility] MCV [Entitic volume] by Auto mated countOrdered By: Kait Dan on 03-03-2024 MCV (RBC) [Entitic vol] 69.0 fL Low 83.5-101 [facility] Comment on above: Performed By: #### H S TROP, SCAN CBC, BNP, BMP ####[address] [place] [address] [place] Microcytes LM Ql (Bld)Ordere d By: Kait Dan on 03-03-2024 Microcytes Ql (Bld) Marked [facility] Monocyte distribution width [Entitic volume] in Blood by AutomatedOrdered By: Kait Dan on 03-03-2024 Monocyte distribution width Auto (Bld) [Entitic vol] 17.33 % 0.00-20.00 [facility] Monocyte distribution width Auto (Bld) [Entitic vol] Monocyte distribution width [Entitic volume] in Blood by Automated 0.00-20.00 [facility] Natriuretic peptide B [Mass/ Vol]Ordered By: Kait Dan on 03-03-2024 Natriuretic peptide B (Bld) [Mass/Vol] BNP ser/plas 5-100 [facility] Neutrophils [#/volume] in Bl ood by Automated countOrdered By: Kait Dan on 03-03-2024 Neutrophils (Bld) [#/Vol] 4.7 10*3/uL Normal 1.8-7.7 [facility] Comment on above: Performed By: #### H S TROP, SCAN CBC, BNP, BMP ####[facility] [id number] Nitrite Test strip Ql (U)Ord ered By: Kait Dan on 03-03-2024 Nitrite Ql (U) Negative Negative [facility] Nitrite Ql (U) Nitrite [Presence] i n Urine by Test strip Negative [facility] No Panel InformationOrdered By: Kait Dan on 03-03-2024 Estimated GFR (CKD-EPI) 38.669 mL/Min [facility] Creatinine Clearance (Chem 44.86 [facility] Nucleated erythrocytes [Pres ence] in Blood by Automated countOrdered By: Kait Dan on 03-03-2024 Nucleated RBC Auto Ql (Bld) 0.2 /100{WBC} 0-0.5 [facility] Platelet adequacy [Presence] in Blood by Light microscopyOrdered By: Kait Dan on 03-03-2024 Platelets LM Ql (Bld) Increased Normal [facility] Platelet mean volume [Entiti c volume] in Blood by Automated countOrdered By: Kait Dan on 03-03-2024 Platelet mean volume (Bld) [Entitic vol] 7.8 fL Normal 6.6-10.1 [facility] Comment on above: Performed By: #### H S TROP, SCAN CBC, BNP, BMP ####[facility] [id number] [place] [id number] [facility] [[email or web address]] Platelet morphology finding [Identifier] in BloodOrdered By: Kait Dan on 03-03-2024 Platelet morphology finding Nom (Bld) Normal Normal [facility] Platelets [#/volume] in Bloo d by Automated countOrdered By: Kait Dan on 03-03-2024 Platelets (Bld) [#/Vol] 452 10*3/uL High 150-450 [facility] Comment on above: Performed By: #### H S TROP, SCAN CBC, BNP, BMP ####[place] [id number] Polychromasia [Presence] in Blood by Light microscopyOrdered By: Kait Dan on 03-03-2024 Polychromasia LM Ql (Bld) Slight [facility] Potassium [Moles/volume] in Serum or PlasmaOrdered By: Kait Dan on 03-03-2024 Potassium [Moles/Vol] 3.9 mmol/L Normal 3.5-5.1 [facility] Comment on above: Performed By: #### H S TROP, SCAN CBC, BNP, BMP ####[address] Protein Test strip (U) [Mass /Vol]Ordered By: Kait Dan on 03-03-2024 Protein (U) [Mass/Vol] Negative Negative [facility] Protein (U) [Mass/Vol] Protein [Mass/vol ume] in Urine by Test strip Negative [facility] RBC morphologyOrdered By: Martha Dan on 03-03-2024 RBC morphology finding Nom (Bld) N/A [facility] Respiratory specimen influen za A virus, influenza B virus, respiratory syncytical virOrdered By: Kait Dan on 03-03-2024 SARS-CoV-2 (COVID-19) RNA NELLY+probe Ql (Unsp spec) Respiratory specimen influenza A virus, influenza B virus, respiratory syncytical vir [facility] Scan and CBCon 03-03-2024 Hypochromasia Moderate Normal [facility] Comment on above: Performed By: #### H S TROP, SCAN CBC, BNP, BMP ####[place] [id number] [facility] [[email or web address]] Mean Corpuscular HGB Conc 31.6 g/dL Low 32.5-35.6 [facility] Comment on above: Performed By: #### H S TROP, SCAN CBC, BNP, BMP ####[place] [id number] [facility] [[email or web address]] Microcytosis Marked Normal [facility] Comment on above: Performed By: #### H S TROP, SCAN CBC, BNP, BMP ####[address] [address] [facility] [[email or web address]] Monocytes/100 WBC (Bld) 17.33 % Normal 0.00-20.00 [facility] Comment on above: Performed By: #### H S TROP, SCAN CBC, BNP, BMP ####[place] [id number] [facility] [[email or web address]] NRBC% 0.2 /100{WBC} Normal 0-0.5 [facility] Comment on above: Performed By: #### H S TROP, SCAN CBC, BNP, BMP ####[place] [id number] [facility] [[email or web address]] Platelet Estimate Increased Normal Normal [facility] Comment on above: Performed By: #### H S TROP, SCAN CBC, BNP, BMP ####[address] [address] [facility] [[email or web address]] Platelet Morphology Normal Normal Normal [facility] Comment on above: Result Comment: PERF ORMED BY:[place] [address] [place], [place] [phone] MEDICAL DIRECTORCLIFFORD LOBATO M.D. Performed By: #### H S TROP, SCAN CBC, BNP, BMP ####[place] [address] [facility] [[email or web address]] Polychromasia Slight Normal [facility] Comment on above: Performed By: #### H S TROP, SCAN CBC, BNP, BMP ####[place] [address] [place] [id number] [facility] [[email or web address]] Serum or plasma anion gap de terminationOrdered By: Kait Dan on 03-03-2024 Anion gap [Moles/Vol] 14.6 mmol/L Normal 6.0-15.0 [facility] Comment on above: Performed By: #### H S TROP, SCAN CBC, BNP, BMP ####[place] [address] [place] [id number] [facility] [[email or web address]] Sodium [Moles/volume] in Ser um or PlasmaOrdered By: Kait Dan on 03-03-2024 Sodium [Moles/Vol] 138 mmol/L Normal 136-145 [facility] Comment on above: Performed By: #### H S TROP, SCAN CBC, BNP, BMP ####[place] [id number] [facility] [[email or web address]] Specific gravity Test strip (U) [Rel density]Ordered By: Kait Dan on 03-03-2024 Specific gravity (U) [Rel density] 1.009 1.001-1.03 0 [facility] Specific gravity (U) [Rel density] Specific gravity of Urine by Test strip 1.001-1.03 0 [facility] Troponin I High Sensitivityo n 03-03-2024 Troponin I High Sensitivity 4.5 pg/mL Normal 0.0-20.0 [facility] Comment on above: Result Comment: PERF ORMED BY:[place] [address] [place], [place] [phone] MEDICAL DIRECTORCLIFFORD LOBATO M.D. Performed By: #### H S TROP ####[address] [address] [facility] [[email or web address]] Troponin I High Sensitivity 9.2 pg/mL Normal 0.0-20.0 [facility] Comment on above: Result Comment: PERF ORMED BY:[place] [address] [place], [place] [phone] MEDICAL DIRECTORCLIFFORD LOBATO M.D. Performed By: #### H S TROP, SCAN CBC, BNP, BMP ####[place] [id number] Troponin I.cardiac [Mass/vol ume] in Serum or Plasma by Detection limit <= 0.01 ng/Ordered By: Kait Dan on 03-03-2024 Troponin I.cardiac DL <= 0.01 ng/mL [Mass/Vol] 4.5 pg/mL 0.0-20.0 [facility] Troponin I.cardiac DL <= 0.01 ng/mL [Mass/Vol] Troponin I.cardiac [Mass/volume] in Serum or Plasma by Detection limit <= 0.01 ng/ 0.0-20.0 [facility] Urea nitrogen [Mass/volume] in Serum or PlasmaOrdered By: Kait Dan on 03-03-2024 Urea nitrogen [Mass/Vol] 46 mg/dL High 7-25 [facility] Comment on above: Performed By: #### H S TROP, SCAN CBC, BNP, BMP ####[place] [id number] [facility] [[email or web address]] Urinalysison 03-03-2024 Bilirubin,Urine Negative Normal Negative [facility] Comment on above: Order Comment: Name Collection Type:: Clean-Voided Midstream Performed By: #### C EPHEID NEG, UA, COVID19 FLU RSV ####[address] Glucose Ql (U) 500 mg/dL High Normal [facility] Comment on above: Order Comment: Name Collection Type:: Clean-Voided Midstream Performed By: #### C EPHEID NEG, UA, COVID19 FLU RSV ####[place] [id number] [facility] [[email or web address]] Nitrite,Urine Negative Normal Negative [facility] Comment on above: Order Comment: Name Collection Type:: Clean-Voided Midstream Performed By: #### C EPHEID NEG, UA, COVID19 FLU RSV ####[place] [id number] [facility] [[email or web address]] Occult Blood,Urine Negative Normal Negative [facility] Comment on above: Order Comment: Name Collection Type:: Clean-Voided Midstream Result Comment: PERF ORMED BY:[address] [place], [place] [phone] MEDICAL DIRECTORCLIFFORD LOBATO M.D. Performed By: #### C EPHEID NEG, UA, COVID19 FLU RSV ####[place] [id number] [facility] [[email or web address] Protein,Urine Negative Normal Negative [facility] Comment on above: Order Comment: Name Collection Type:: Clean-Voided Midstream Performed By: #### C EPHEID NEG, UA, COVID19 FLU RSV ####[address] Specificy [place],Urine 1.009 Normal 1.001-1.03 0 [facility] Comment on above: Order Comment: Name Collection Type:: Clean-Voided Midstream Performed By: #### C EPHEID NEG, UA, COVID19 FLU RSV ####[place] [id number] [facility] [[email or web address] Urobilinogen,Urine Normal Normal Normal [facility] Comment on above: Order Comment: Name Collection Type:: Clean-Voided Midstream Performed By: #### C EPHEID NEG, UA, COVID19 FLU RSV ####[place] [id number] [facility] [[email or web address] Urine appearanceOrdered By: Kait Dan on 03-03-2024 Appearance (U) Clear Normal Clear [facility] Comment on above: Order Comment: Name Collection Type:: Clean-Voided Midstream Performed By: #### C EPHEID NEG, UA, COVID19 FLU RSV ####[place] [id number] [facility] [[email or web address]] Urobilinogen Test strip (U) [Mass/Vol]Ordered By: Kait Dan on 03-03-2024 Urobilinogen (U) [Mass/Vol] Normal mg/dL Normal [facility] Urobilinogen (U) [Mass/Vol] Urobilinogen [Mass/volume] in Urine by Test strip Normal [facility] XR chest 2V*on 03-03-2024 XR chest 2V* Normal [facility] pH Test strip (U)Ordered By: Kait Dan on 03-03-2024 pH (U) pH of Urine by Test strip 5.0-9.0 [facility] pH of Urine by Test stripOrd ered By: Kait Dan on 03-03-2024 pH (U) 5.0 [pH] Normal 5.0-9.0 [facility] Comment on above: Order Comment: Name Collection Type:: Clean-Voided Midstream Performed By: #### C EPHEID NEG, UA, COVID19 FLU RSV ####[facility] [address] [place] [address] [facility] [[email or web address]] Coding Queryon 02-22-2024 Coding Query Coding Query From: Eliz Diaz RN To: Ben Corrigan III, DO; Sent: 02/20/2024 14:33:58 EDT ! Subject: Coding Query Due Date/Time: 02/21/2024 14:33:00 EDT Caller Name: MATTEO MYRA CHRISTIAN; Caller Number: H Documentation in [...] From: Ben Corrigan III, DO To: Joe STERN, Eliz Daniel; Sent: 02/22/2024 16:07:30 EDT Subject: RE: Coding Query Caller Name: MYRA PICKARD SR; Caller Number: Rashad Normal [facility] General Message Officeon General Message Office General Message O ffice --- --- --- --- --- --- --- --- --- From: [facility], DirectInbox To: MYRA PICKARD SR Sent: 02/22/24 02:30:41 AM EDT Subject: Discharge Summary Ready to View A summary regarding your recent visit is available in the Documents section of your health record. Normal [facility] Surgical Pathology Reporton 02-22-2024 Surgical Pathology Report [facility] [address] [place] [address]- Surgical Pathology Report Collected Date/Time: 02/12/2024 14:13 EDT Pathologist: Blair Blood MD Received Date/Time: 02/13/2024 07:26 EDT Simon HERRERA, Mike Montes MD, Mike Cain Surgical Pathology Report - 02/22/2024 14:10 EDT - Auth (Verified) Final Diagnosis RIGHT LOWER EXTREMITY, [id number] AMPUTATION: - Gangrenous ulcer and artery atherosclerosis. - Seborrheic keratosis. - No evidence of osteomyelitis. - Resection margin uninvolved by acute inflammation. (Electronic Signature) Yan. 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 [...] pigmented lesion measuring 0.2 x 0.2 cm. Business Line Manager sections are submitted in a total of ten cassettes: 1-5: Skin and soft tissue ulcerated areas 6-7: Artery 8: Bone near ulceration after decalcification 9-10: Bone from surgical margin after decalcification (DC) Gross of specimen was discussed with Dr. Dunne in Frozen Section Room at 1400. (DC) DC:MCA Microscopic Description Microscopic examination performed unless gross only specified. Normal [facility] Comment on above: Performed By: #### 4 [id number] #### [facility] [address] [place] [address] BMPon 02-21-2024 Anion gap [Moles/Vol] 8 mmol/L Normal 6-16 [facility] Comment on above: Performed By: #### 2 [id number] #### [facility] [address] [place] [address] Calcium [Mass/Vol] 8.6 mg/dL Low 8.9-11.1 [facility] Comment on above: Performed By: #### 2 [id number] #### [facility] [address] [place] [address] Chloride [Moles/Vol] 100 mmol/L Low 101-111 [facility] Comment on above: Performed By: #### 2 [id number] #### [facility] [address] [place] [address] CO2 [Moles/Vol] 30 mmol/L Normal 21-31 [facility] Comment on above: Performed By: #### 2 [id number] #### [facility] [address] [place] [address] Creatinine [Mass/Vol] 1.8 mg/dL High 0.5-1.3 [facility] Comment on above: Performed By: #### 2 [id number] #### [facility] [address] [place] [address] Glucose [Mass/Vol] 169 mg/dL Normal 55-199 [facility] Comment on above: Performed By: #### 2 [id number] #### [facility] [address] [place] [address] Potassium [Moles/Vol] 3.7 mmol/L Normal 3.5-5.3 [facility] Comment on above: Performed By: #### 2 [id number] #### [facility] [address] [place] [address] Sodium [Moles/Vol] 134 mmol/L Low 135-145 [facility] Comment on above: Performed By: #### 2 [id number] #### [facility] [address] [place] [address] Urea nitrogen [Mass/Vol] 26 mg/dL High 5-21 [facility] Comment on above: Performed By: #### 2 [id number] #### [facility] [address] [place] [address] Urea nitrogen/Creatinine [Mass ratio] 14 No Units Normal 10-20 [facility] Comment on above: Performed By: #### 2 [id number] #### [facility] [address] [place] [address] CBC w/ Auto Diffon 4 Basophils/100 WBC (Bld) 0.7 % Normal 0.0-2.0 [facility] Comment on above: Performed By: #### 2 [id number] #### [facility] [address] [place] [address] Basophils/Leukocytes Auto (Bld) [Pure # fraction] 0.1 E9/L Normal 0.0-0.2 [facility] Comment on above: Performed By: #### 2 [id number] #### [facility] [address] [place] [address] Eosinophils (Bld) [#/Vol] 0.4 E9/L Normal 0.0-0.5 [facility] Comment on above: Performed By: #### 2 054730 #### [facility] [address] [place] [address] Eosinophils/100 WBC (Bld) 3.6 % Normal 0.0-8.0 [facility] Comment on above: Performed By: #### 2 433706 #### [facility] [address] [place] [address] Erythrocyte distribution width (RBC) [Ratio] 21.4 % High 10.9-14.2 [facility] Comment on above: Performed By: #### 2 [id number] #### [facility] [address] [place] [address] Hematocrit (Bld) [Volume fraction] 25.6 % Low 37.7-49.0 [facility] Comment on above: Performed By: #### 2 [id number] #### [facility] [address] [place] [address] Hemoglobin (Bld) [Mass/Vol] 8.1 g/dL Low 13.5-17.5 [facility] Comment on above: Performed By: #### 2 719856 #### [facility] [address] [place] [address] Hypochromia Auto Ql (Bld) PRESENT Invalid Interpretation Code [facility] Comment on above: Performed By: #### 2 [id number] #### [facility] [address] [place] [address] Lymphocytes (Bld) [#/Vol] 1.5 E9/L Normal 1.0-4.0 [facility] Comment on above: Performed By: #### 2 [id number] #### [facility] [address] [place] [address] Lymphocytes/100 WBC (Bld) 12.4 % Low 14.0-50.0 [facility] Comment on above: Performed By: #### 2 [id number] #### [facility] [address] [place] [address] MCH (RBC) [Entitic mass] 22.3 pg Low 27.0-34.0 [facility] Comment on above: Performed By: #### 2 [id number] #### [facility] [address] [place] [address] MCHC (RBC) [Mass/Vol] 31.5 g/dL Normal 31.4-36.0 [facility] Comment on above: Performed By: #### 2 [id number] #### [facility] [address] [place] [address] MCV (RBC) [Entitic vol] 70.7 fL Low 80.0-100.0 [facility] Comment on above: Performed By: #### 2 [id number] #### [facility] [address] [place] [address] Microcytes Ql (Bld) PRESENT Invalid Interpretation Code [facility] Comment on above: Performed By: #### 2 706967 #### [facility] [address] [place] [address] Monocytes (Bld) [#/Vol] 1.1 E9/L High 0.2-1.0 [facility] Comment on above: Performed By: #### 2 497211 #### [facility] [address] [place] [address] Neutrophils (Bld) [#/Vol] 9.3 E9/L High 2.0-7.5 [facility] Comment on above: Performed By: #### 2 550913 #### [facility] [address] [place] [address] Neutrophils/100 WBC (Bld) 74.6 % Normal 36.0-75.0 [facility] Comment on above: Performed By: #### 2 351198 #### [facility] [address] [place] [address] Platelet mean volume (Bld) [Entitic vol] 8.6 fL Normal 6.4-10.8 [facility] Comment on above: Performed By: #### 2 806285 #### [facility] [address] [place] [address] Platelets (Bld) [#/Vol] 481.0 E9/L Normal 150.0-500. 0 [facility] Comment on above: Performed By: #### 2 642198 #### [facility] [address] [place] [address] Platelets Large LM Ql (Bld) PRESENT Invalid Interpretation Code [facility] Comment on above: Performed By: #### 2 [id number] #### [facility] [address] [place] [address] RBC (Bld) [#/Vol] 3.6 E12/L Low 4.3-5.9 [facility] Comment on above: Performed By: #### 2 322574 #### [facility] [address] [place] [address] RBC size Nom (Bld) NORMAL Invalid Interpretation Code [facility] Comment on above: Performed By: #### 2 [id number] #### [facility] [address] [place] [address] WBC corrected for nucl RBC Auto (Bld) [#/Vol] 12.5 E9/L High 4.0-11.0 [facility] Comment on above: Performed By: #### 2 [id number] #### [facility] [address] [place] [address] CHEMISTRYOrdered By: Lab ROP User on 02-21-2024 Glucose [Mass/Vol] 227 mg/dL High 55 - 99 mg/dL [facility] POC Subsection Comment on above: Result Comment: Deon hathaway RN/ POC Device SN [id number] 1 Invalid Interpretation Code [facility] POC Subsection POC User ID [id number] 1 Invalid Interpretation Code [facility] POC Subsection POC Username CLARITA RAMSEY Invalid Interpretation Code [facility] POC Subsection Glucose [Mass/Vol] 177 mg/dL High 55 - 99 mg/dL [facility] POC Subsection Comment on above: Result Comment: Deon hathaway RN/ POC Device SN [id number] 1 Invalid Interpretation Code [facility] POC Subsection POC User ID [id number] 1 Invalid Interpretation Code [facility] POC Subsection POC Username CLARITA RAMSEY Invalid Interpretation Code [facility] POC Subsection Glucose [Mass/Vol] 158 mg/dL High 55 - 99 mg/dL [facility] POC Subsection POC Device SN [id number] 1 Invalid Interpretation Code [facility] POC Subsection POC User ID [id number] 1 Invalid Interpretation Code [facility] POC Subsection POC Username FADI LIND Invalid Interpretation Code [facility] POC Subsection CHEMISTRYOrdered By: SYSTEM SYSTEM on [...] 02-03 Glucose [Mass/Vol] 227 mg/dL High 55-99 [facility] Comment on above: Result Comment: Deon ETIENNE Performed By: #### 2 [id number] #### [facility] [address] [place] [address] Glucose [Mass/Vol] 177 mg/dL High 55-99 [facility] Comment on above: Result Comment: Deon ETIENNE Performed By: #### 2 [id number] #### [facility] [address] [place] [address] Glucose [Mass/Vol] 158 mg/dL High 55-99 [facility] Comment on above: Performed By: #### 2 [id number] #### [facility] [address] [place] [address] Discharge Note-Nursingon Discharge Note-Nursing Discharge Note-Paula wolf MATTEO CHRISTIAN, MYRA Daniel :1965 Visit Date:02/12/2024 [...] TERESA LYNCH DO, FAM When: Where: [address] [place] [address]- [facility] Comments: Call for followup appointment Where: [address] [place] [phone]- Medications What How Much When Instructions Next [...] 0.5 Tablets (more content not included)... Normal [facility] HEMATOLOGYOrdered By: SYSTEM SYSTEM on 02-21-2024 [...] 02-21-2024 Inpatient Clinical Summary Inpatient Clinical Summary [place] [address] Clinical Summary Person Information: Name: MYRA PICKARD SR Age: 58 Years : 1965 Sex: Male PCP: TERESA LYNCH DO Marital Status: Race: White Ethnicity: Non- or Language: Albanian Visit Id: Visit Reason: I70.261 Speciality: Acuity: Enc Type: Inpatient Med Service: Medical Arrival: 02/12/2024 11:13:26 Discharge: Dispo Type: Address: [address] [place] [id number] Provider Notes: Diagnosis: 1:Hx of right BKA; [...] up: With: Address: When: TERESA LYNCH DO, [place] [id number] With: Address: When: Mike Montes MD[address] [address] Within 2 weeks Comments: Call for followup appointment Patient Education Information: Living With an Amputation Normal [facility] Inpatient Patient Summaryon 02-21-2024 Inpatient Patient Summary Inpatient Patient Summary [address] [address] Patient Discharge Instructions PERSON INFORMATION Name: MYRA PICKARD SR Date of : 1965 Current Date: 02/21/2024 15:14:07 PHYSICIANS Admitting Physician: Mike Montes MD Primary Care Physician: TERESA LYNHC DO PCP Comment: Discharge Diagnosis: 1:Hx of [...] up: With: Address: When: TERESA LYNCH DO, [address] [address] With: Address: When: Simon HERRERA, Mike Weathers [address] [place] [address] Within 2 weeks Comments: Call for [...] Tablets By M (more content not included)... [facility] Interdisciplinary Note - Jorge e Manageron 02-21-2024 Interdisciplinary Note - Wire Technician Interdisciplinary Note - Wire Technician Precert for Shaniko has been obtained. Patient informed and his was also contacted. Both remain in agreement with the discharge plan. Patient's will arrive to [facility] by 1700 this evening and will transport patient to Shaniko once he has finished his dinner. Hospitalist, RN, and CRM aware. [facility] Comment on above: Result Comment: Elec tronically Signed By: Evens SÁNCHEZ, Fely García.br\Date and Time Signed: 02/21/24 18:08 EDT Interdisciplinary Note - Soc ial Workeron 02-21-2024 Interdisciplinary Note - Business Transformation Manager Interdisciplinary Note - Business Transformation Manager Precert for Shaniko has been obtained. Patient informed and his was also contacted. Both remain in agreement with the discharge plan. Patient's will arrive to [facility] by 1700 this evening and will transport patient to Shaniko once he has finished his dinner. Hospitalist, RN, and CRM aware. Normal [facility] Interdisciplinary Note - Business Transformation Manager Interdisciplinary Note - Business Transformation Manager Precert for Shaniko has been obtained. Patient informed and his was also contacted. Both remain in agreement with the discharge plan. Patient's will arrive to [facility] by 1700 this evening and will transport patient to Shan[place] once he has finished his dinner. Hospitalist, RN, and CRM aware. Normal [facility] eGFRon 02-21-2024 eGFR 43 mL/min/1.73 m2 Low >=59 [facility] Comment on above: Order Comment: Order added by Discern Expert. Performed By: #### 1 [id number] #### [facility] [address] [place] [address] BMPon 02-20-2024 Anion gap [Moles/Vol] 15 mmol/L Normal 6-16 [facility] Comment on above: Performed By: #### 2 [id number] #### [facility] [address] [place] [address] Calcium [Mass/Vol] 9.4 mg/dL Normal 8.9-11.1 [facility] Comment on above: Performed By: #### 2 416287 #### [facility] [address] [place] [address] Chloride [Moles/Vol] 97 mmol/L Low 101-111 [facility] Comment on above: Performed By: #### 2 [id number] #### [facility] [address] [place] [address] CO2 [Moles/Vol] 28 mmol/L Normal 21-31 [facility] Comment on above: Performed By: #### 2 [id number] #### [facility] [address] [place] [address] Creatinine [Mass/Vol] 1.8 mg/dL High 0.5-1.3 [facility] Comment on above: Performed By: #### 2 [id number] #### [facility] [address] [place] [address] Glucose [Mass/Vol] 259 mg/dL High 55-199 [facility] Comment on above: Performed By: #### 2 665408 #### [facility] [address] [place] [address] Potassium [Moles/Vol] 3.9 mmol/L Normal 3.5-5.3 [facility] Comment on above: Performed By: #### 2 [id number] #### [facility] [address] [place] [address] Sodium [Moles/Vol] 136 mmol/L Normal 135-145 [facility] Comment on above: Performed By: #### 2 152596 #### [facility] [address] [place] [address] Urea nitrogen [Mass/Vol] 27 mg/dL High 5-21 [facility] Comment on above: Performed By: #### 2 279138 #### [facility] [address] [place] [address] Urea nitrogen/Creatinine [Mass ratio] 15 No Units Normal 10-20 [facility] Comment on above: Performed By: #### 2 [id number] #### [facility] [address] [place] [address] CBC w/ Auto Diffon 4 Basophils/100 WBC (Bld) 0.7 % Normal 0.0-2.0 [facility] Comment on above: Performed By: #### 2 379484 #### [facility] [address] [place] [address] Basophils/Leukocytes Auto (Bld) [Pure # fraction] 0.1 E9/L Normal 0.0-0.2 [facility] Comment on above: Performed By: #### 2 611322 #### [facility] [address] [place] [address] Eosinophils (Bld) [#/Vol] 0.2 E9/L Normal 0.0-0.5 [facility] Comment on above: Performed By: #### 2 452061 #### [facility] [address] [place] [address] Eosinophils/100 WBC (Bld) 1.6 % Normal 0.0-8.0 [facility] Comment on above: Performed By: #### 2 [id number] #### [facility] [address] [place] [address] Erythrocyte distribution width (RBC) [Ratio] 21.6 % High 10.9-14.2 [facility] Comment on above: Performed By: #### 2 722925 #### [facility] [address] [place] [address] Hematocrit (Bld) [Volume fraction] 27.5 % Low 37.7-49.0 [facility] Comment on above: Performed By: #### 2 [id number] #### [facility] [address] [place] [address] Hemoglobin (Bld) [Mass/Vol] 8.9 g/dL Low 13.5-17.5 [facility] Comment on above: Performed By: #### 2 [id number] #### [facility] [address] [place] [address] Hypochromia Auto Ql (Bld) PRESENT Invalid Interpretation Code [facility] Comment on above: Performed By: #### 2 [id number] #### [facility] [address] [place] [address] Lymphocytes (Bld) [#/Vol] 1.3 E9/L Normal 1.0-4.0 [facility] Comment on above: Performed By: #### 2 [id number] #### [facility] [address] [place] [address] Lymphocytes/100 WBC (Bld) 8.3 % Low 14.0-50.0 [facility] Comment on above: Performed By: #### 2 078479 #### [facility] [address] [place] [address] MCH (RBC) [Entitic mass] 22.9 pg Low 27.0-34.0 [facility] Comment on above: Performed By: #### 2 306394 #### [facility] [address] [place] [address] MCHC (RBC) [Mass/Vol] 32.2 g/dL Normal 31.4-36.0 [facility] Comment on above: Performed By: #### 2 554116 #### [facility] [address] [place] [address] MCV (RBC) [Entitic vol] 70.9 fL Low 80.0-100.0 [facility] Comment on above: Performed By: #### 2 [id number] #### [facility] [address] [place] [address] Microcytes Ql (Bld) PRESENT Invalid Interpretation Code [facility] Comment on above: Performed By: #### 2 [id number] #### [facility] [address] [place] [address] Monocytes (Bld) [#/Vol] 1.2 E9/L High 0.2-1.0 [facility] Comment on above: Performed By: #### 2 [id number] #### [facility] [address] [place] [address] Neutrophils (Bld) [#/Vol] 12.7 E9/L High 2.0-7.5 [facility] Comment on above: Performed By: #### 2 775172 #### [facility] [address] [place] [address] Neutrophils/100 WBC (Bld) 81.5 % High 36.0-75.0 [facility] Comment on above: Performed By: #### 2 974415 #### [facility] [address] [place] [address] Platelet 521.0 E9/L High 150.0-500. 0 [facility] Comment on above: Performed By: #### 2 [id number] #### [facility] [address] [place] [address] Platelet mean volume (Bld) [Entitic vol] 8.6 fL Normal 6.4-10.8 [facility] Comment on above: Performed By: #### 2 [id number] #### [facility] [address] [place] [address] RBC (Bld) [#/Vol] 3.9 E12/L Low 4.3-5.9 [facility] Comment on above: Performed By: #### 2 [id number] #### [facility] [address] [place] [address] RBC size Nom (Bld) SEE MORPHOLOGY Invalid Interpretation Code [facility] Comment on above: Performed By: #### 2 [id number] #### [facility] [address] [place] [address] WBC corrected for nucl RBC Auto (Bld) [#/Vol] 15.6 E9/L High 4.0-11.0 [facility] Comment on above: Performed By: #### 2 [id number] #### [facility] [address] [place] [address] CHEMISTRYOrdered By: SYSTEM SYSTEM on 02-20-2024 Anion [...] 02-03 Glucose [Mass/Vol] 192 mg/dL High 55-99 [facility] Comment on above: Result Comment: Deon ETIENNE Performed By: #### 2 [id number] #### [facility] [address] [place] [address] Glucose [Mass/Vol] 180 mg/dL High 55-99 [facility] Comment on above: Result Comment: Deon ETIENNE Performed By: #### 2 [id number] #### [facility] [address] [place] [address] Glucose [Mass/Vol] 104 mg/dL High 55- [facility] Comment on above: Result Comment: Deon ETIENNE Performed By: #### 2 [id number] #### [facility] [address] [place] [address] Glucose [Mass/Vol] 165 mg/dL High 55-99 [facility] Comment on above: Result Comment: Deon ETIENNE Performed By: #### 2 [id number] #### [facility] [address] [place] [address] Glucose [Mass/Vol] 224 mg/dL High 55-99 [facility] Comment on above: Result Comment: Deon ETIENNE Performed By: #### 2 [id number] #### [facility] [address] [place] [address] Coding Queryon 02-20-2024 Coding Query Coding Query [...] desired or expected. Thank you!eliz [phone] Normal [facility] HEMATOLOGYOrdered By: SYSTEM SYSTEM on 02-20-2024 [...] Jorge e Manageron 02-20-2024 Interdisciplinary Note - Wire Technician Interdisciplinary Note - Wire Technician This SW rounded with patient this morning. He is aware that precert is still pending for Shaniko and SW will update him as soon as determination is received. SW will also update his . Call placed to patient's this afternoon and a message was left letting her know that the precert remains pending at this time. Normal [facility] Comment on above: Result Comment: Elec tronically Signed By: Fely Narvaezbr\Date and Time Signed: 02/20/24 15:25 EDT Interdisciplinary Note - Wire Technician Interdisciplinary Note - Wire Technician This SW rounded with patient this morning. He is aware that precert is still pending for Shaniko and SW will update him as soon as determination is received. SW will also update his . Normal [facility] Comment on above: Result Comment: Elec tronically Signed By: Fely Narvaez.br\Date and Time Signed: 02/20/24 13:55 EDT eGFRon 02-20-2024 eGFR 43 mL/min/1.73 m2 Low >=59 [facility] Comment on above: Order Comment: Order added by Discern Expert. Performed By: #### 1 [id number] #### [facility] [address] [place] [address] BMPon 02-19-2024 Anion gap [Moles/Vol] 12 mmol/L Normal 6-16 [facility] Comment on above: Performed By: #### 2 [id number] #### [facility] [address] [address] Calcium [Mass/Vol] 8.9 mg/dL Normal 8.9-11.1 [facility] Comment on above: Performed By: #### 2 [id number] #### [facility] [address] [place] [address] Chloride [Moles/Vol] 100 mmol/L Low 101-111 [facility] Comment on above: Performed By: #### 2 [id number] #### [facility] [address] [place] [address] CO2 [Moles/Vol] 28 mmol/L Normal 21-31 [facility] Comment on above: Performed By: #### 2 [id number] #### [facility] [address] [facility] [place] [address] Creatinine [Mass/Vol] 1.7 mg/dL High 0.5-1.3 [facility] Comment on above: Performed By: #### 2 [id number] #### [facility] [address] [place] [address] Glucose [Mass/Vol] 235 mg/dL High 55-199 [facility] Comment on above: Performed By: #### 2 [id number] #### [facility] [address] [place] [address] Potassium [Moles/Vol] 4.1 mmol/L Normal 3.5-5.3 [facility] Comment on above: Performed By: #### 2 [id number] #### [facility] [address] [place] [address] Sodium [Moles/Vol] 136 mmol/L Normal 135-145 [facility] Comment on above: Performed By: #### 2 [id number] #### [facility] [address] [place] [address] Urea nitrogen [Mass/Vol] 25 mg/dL High 5-21 [facility] Comment on above: Performed By: #### 2 [id number] #### [facility] [address] [place] [address] Urea nitrogen/Creatinine [Mass ratio] 15 No Units Normal 10-20 [facility] Comment on above: Performed By: #### 2 [id number] #### [facility] [address] [place] [address] CBC w/ Auto Diffon 4 Basophils/100 WBC (Bld) 1.6 % Normal 0.0-2.0 [facility] Comment on above: Performed By: #### 2 [id number] #### [facility] [address] [place] [address] Basophils/Leukocytes Auto (Bld) [Pure # fraction] 0.2 E9/L Normal 0.0-0.2 [facility] Comment on above: Performed By: #### 2 [id number] #### [facility] [address] [place] [address] Eosinophils (Bld) [#/Vol] 0.5 E9/L Normal 0.0-0.5 [facility] Comment on above: Performed By: #### 2 [id number] #### [facility] [address] [place] [address] Eosinophils/100 WBC (Bld) 5.1 % Normal 0.0-8.0 [facility] Comment on above: Performed By: #### 2 [id number] #### [facility] [address] [place] [address] Erythrocyte distribution width (RBC) [Ratio] 21.6 % High 10.9-14.2 [facility] Comment on above: Performed By: #### 2 [id number] #### [facility] [address] [place] [address] Hematocrit (Bld) [Volume fraction] 24.4 % Low 37.7-49.0 [facility] Comment on above: Performed By: #### 2 [id number] #### [facility] [address] [place] [address] Hemoglobin (Bld) [Mass/Vol] 7.9 g/dL Low 13.5-17.5 [facility] Comment on above: Performed By: #### 2 [id number] #### [facility] [address] [place] [address] Hypochromia Auto Ql (Bld) PRESENT Invalid Interpretation Code [facility] Comment on above: Performed By: #### 2 [id number] #### [facility] [address] [place] [address] Lymphocytes (Bld) [#/Vol] 1.9 E9/L Normal 1.0-4.0 [facility] Comment on above: Performed By: #### 2 [id number] #### [facility] [address] [place] [address] Lymphocytes/100 WBC (Bld) 18.4 % Normal 14.0-50.0 [facility] Comment on above: Performed By: #### 2 [id number] #### [facility] [address] [place] [address] MCH (RBC) [Entitic mass] 22.8 pg Low 27.0-34.0 [facility] Comment on above: Performed By: #### 2 [id number] #### [facility] [address] [place] [address] MCHC (RBC) [Mass/Vol] 32.3 g/dL Normal 31.4-36.0 [facility] Comment on above: Performed By: #### 2 [id number] #### [facility] [address] [place] [address] MCV (RBC) [Entitic vol] 70.4 fL Low 80.0-100.0 [facility] Comment on above: Performed By: #### 2 [id number] #### [facility] [address] [place] [address] Monocytes (Bld) [#/Vol] 1.0 E9/L Normal 0.2-1.0 [facility] Comment on above: Performed By: #### 2 781194 #### [facility] [address] [place] [address] Neutrophils (Bld) [#/Vol] 6.7 E9/L Normal 2.0-7.5 [facility] Comment on above: Performed By: #### 2 [id number] #### [facility] [address] [place] [address] Neutrophils/100 WBC (Bld) 65.1 % Normal 36.0-75.0 [facility] Comment on above: Performed By: #### 2 [id number] #### [facility] [address] [place] [address] Platelet 444.0 E9/L Normal 150.0-500. 0 [facility] Comment on above: Performed By: #### 2 [id number] #### [facility] [address] [place] [address] Platelet mean volume (Bld) [Entitic vol] 8.1 fL Normal 6.4-10.8 [facility] Comment on above: Performed By: #### 2 [id number] #### [facility] [address] [place] [address] RBC (Bld) [#/Vol] 3.5 E12/L Low 4.3-5.9 [facility] Comment on above: Performed By: #### 2 [id number] #### [facility] [address] [place] [address] RBC size Nom (Bld) SEE MORPHOLOGY Invalid Interpretation Code [facility] Comment on above: Performed By: #### 2 [id number] #### [facility] [address] [place] [id number] WBC corrected for nucl RBC Auto (Bld) [#/Vol] 10.3 E9/L Normal 4.0-11.0 [facility] Comment on above: Performed By: #### 2 [id number] #### [facility] [address] [place] [address] CHEMISTRYOrdered By: SYSTEM SYSTEM on 02-19-2024 Anion [...] 02-03 Glucose [Mass/Vol] 250 mg/dL High 55-99 [facility] Comment on above: Result Comment: Deon ETIENNE Performed By: #### 2 [id number] #### [facility] [address] [place] [address] Glucose [Mass/Vol] 272 mg/dL High 55-99 [facility] Comment on above: Result Comment: Deon ETIENNE Performed By: #### 2 [id number] #### [facility] [address] [place] [address] Glucose [Mass/Vol] 277 mg/dL High 55-99 [facility] Comment on above: Result Comment: Deon ETIENNE Performed By: #### 2 [id number] #### [facility] [address] [place] [address] Glucose [Mass/Vol] 217 mg/dL High 55-99 [facility] Comment on above: Result Comment: Deon ETIENNE Performed By: #### 2 [id number] #### [facility] [address] [place] [address] HEMATOLOGYOrdered By: SYSTEM SYSTEM on 02-19-2024 Basophils/100 [...] Jorge e Manageron 02-19-2024 Interdisciplinary Note - Wire Technician Interdisciplinary Note - Wire Technician This SW met with patient today to discuss discharge plans. Plan remains for patient to go to [facility] in [place] once precert is obtained. All updates have been sent to [facility] for the precert, which was submitted on Monday. Patient requested that SW contact his once precert is obtained, or before the end of the day if not obtained today. This SW made a tc to patient's and let her know that precert is still pending. She voiced understanding. Normal [facility] Comment on above: Result Comment: Elec tronically Signed By: Fely Narvaez.nile\Date and Time Signed: 02/19/24 15:59 EDT Interdisciplinary Note - Wire Technician Interdisciplinary Note - Wire Technician This SW met with patient today to discuss discharge plans. Plan remains for patient to go to [facility] in [place] once precert is obtained. All updates have been sent to [facility] for the precert, which was submitted on Monday. Patient requested that SW contact his once precert is obtained, or before the end of the day if not obtained today. Normal [facility] Comment on above: Result Comment: Michael tronically Signed By: Fely Narvaez.nile\Date and Time Signed: 02/19/24 10:44 EDT Operative [...] correct. Mike Montes M.D. ca Dictated: 02/12/2024 [id number] Transcribed: 02/13/2024 [facility] Comment on above: Result Comment: Elec tronically Signed By: Mike Montes MD.\.br\Date and Time Signed: 02/19/24 09:51 EDT Operative [...] tolerated the procedure well without complications.. Normal [facility] Comment on above: Result Comment: Elec tronically Signed By: MD Juanito, Laura Rodriguez\.br\Date and Time Signed: 02/19/24 08:36 EDT eGFRon 02-19-2024 eGFR 46 mL/min/1.73 m2 Low >=59 [facility] Comment on above: Order Comment: Order added by Discern Expert. Performed By: #### 1 [id number] #### [facility] [address] [place] [address] Capillary Glucose POCon 02-03 Glucose [Mass/Vol] 348 mg/dL High 55-99 [facility] Comment on above: Result Comment: Deon ETIENNE Performed By: #### 2 [id number] #### [facility] [address] [place] [address] Glucose [Mass/Vol] 323 mg/dL High 55-99 [facility] Comment on above: Result Comment: Deon ETIENNE Performed By: #### 2 [id number] #### [facility] [address] [place] [address] Glucose [Mass/Vol] 323 mg/dL High 55-99 [facility] Comment on above: Result Comment: Deon ETIENNE Performed By: #### 2 [id number] #### [facility] [address] [place] [address] Glucose [Mass/Vol] 210 mg/dL High 55-99 [facility] Comment on above: Result Comment: Deon ETIENNE Performed By: #### 2 [id number] #### [facility] [address] [place] [address] BMPon 02-17-2024 Anion gap [Moles/Vol] 13 mmol/L Normal - [facility] Comment on above: Performed By: #### 2 [id number] #### [facility] [address] [place] [address] Calcium [Mass/Vol] 9.3 mg/dL Normal 8.9-11.1 [facility] Comment on above: Performed By: #### 2 [id number] #### [facility] [address] [place] [address] Chloride [Moles/Vol] 98 mmol/L Low 101-111 [facility] Comment on above: Performed By: #### 2 [id number] #### [facility] [address] [place] [address] CO2 [Moles/Vol] 28 mmol/L Normal 21-31 [facility] Comment on above: Performed By: #### 2 [id number] #### [facility] [address] [place] [address] Creatinine [Mass/Vol] 1.8 mg/dL High 0.5-1.3 [facility] Comment on above: Performed By: #### 2 [id number] #### [facility] [address] [place] [address] Glucose [Mass/Vol] 374 mg/dL High 55-199 [facility] Comment on above: Performed By: #### 2 [id number] #### [facility] [address] [place] [address] Potassium [Moles/Vol] 4.6 mmol/L Normal 3.5-5.3 [facility] Comment on above: Performed By: #### 2 [id number] #### [facility] [address] [place] [address] Sodium [Moles/Vol] 134 mmol/L Low 135-145 [facility] Comment on above: Performed By: #### 2 [id number] #### [facility] [address] [place] [address] Urea nitrogen [Mass/Vol] 25 mg/dL High 5-21 [facility] Comment on above: Performed By: #### 2 [id number] #### [facility] [address] [place] [address] Urea nitrogen/Creatinine [Mass ratio] 14 No Units Normal 10-20 [facility] Comment on above: Performed By: #### 2 [id number] #### [facility] [address] [place] [address] CBC w/ Auto Diffon 4 Basophils/100 WBC (Bld) 1.0 % Normal 0.0-2.0 [facility] Comment on above: Performed By: #### 2 [id number] #### [facility] [address] [place] [address] Basophils/Leukocytes Auto (Bld) [Pure # fraction] 0.1 E9/L Normal 0.0-0.2 [facility] Comment on above: Performed By: #### 2 [id number] #### [facility] [address] [place] [address] Eosinophils (Bld) [#/Vol] 0.5 E9/L Normal 0.0-0.5 [facility] Comment on above: Performed By: #### 2 [id number] #### [facility] [address] [place] [address] Eosinophils/100 WBC (Bld) 5.0 % Normal 0.0-8.0 [facility] Comment on above: Performed By: #### 2 [id number] #### [facility] [address] [place] [address] Erythrocyte distribution width (RBC) [Ratio] 21.6 % High 10.9-14.2 [facility] Comment on above: Performed By: #### 2 [id number] #### [facility] [address] [place] [address] Hematocrit (Bld) [Volume fraction] 24.8 % Low 37.7-49.0 [facility] Comment on above: Performed By: #### 2 485652 #### [facility] [address] [place] [address] Hemoglobin (Bld) [Mass/Vol] 8.5 g/dL Low 13.5-17.5 [facility] Comment on above: Performed By: #### 2 574169 #### [facility] [address] [place] [address] Lymphocytes (Bld) [#/Vol] 1.6 E9/L Normal 1.0-4.0 [facility] Comment on above: Performed By: #### 2 [id number] #### [facility] [address] [place] [address] Lymphocytes/100 WBC (Bld) 15.2 % Normal 14.0-50.0 [facility] Comment on above: Performed By: #### 2 [id number] #### [facility] [address] [place] [address] MCH (RBC) [Entitic mass] 24.3 pg Low 27.0-34.0 [facility] Comment on above: Performed By: #### 2 [id number] #### [facility] [address] [place] [address] MCHC (RBC) [Mass/Vol] 34.2 g/dL Normal 31.4-36.0 [facility] Comment on above: Performed By: #### 2 499390 #### [facility] [address] [place] [address] MCV (RBC) [Entitic vol] 70.9 fL Low 80.0-100.0 [facility] Comment on above: Performed By: #### 2 [id number] #### [facility] [address] [place] [address] Microcytes Ql (Bld) PRESENT Invalid Interpretation Code [facility] Comment on above: Performed By: #### 2 [id number] #### [facility] [address] [place] [address] Monocytes (Bld) [#/Vol] 1.1 E9/L High 0.2-1.0 [facility] Comment on above: Performed By: #### 2 111574 #### [facility] [address] [place] [address] Neutrophils (Bld) [#/Vol] 7.1 E9/L Normal 2.0-7.5 [facility] Comment on above: Performed By: #### 2 [id number] #### [facility] [address] [place] [address] Neutrophils/100 WBC (Bld) 68.3 % Normal 36.0-75.0 [facility] Comment on above: Performed By: #### 2 [id number] #### [facility] [address] [place] [address] Platelet 395.0 E9/L Normal 150.0-500. 0 [facility] Comment on above: Performed By: #### 2 [id number] #### [facility] [address] [place] [address] Platelet mean volume (Bld) [Entitic vol] 8.2 fL Normal 6.4-10.8 [facility] Comment on above: Performed By: #### 2 640345 #### [facility] [address] [place] [address] RBC (Bld) [#/Vol] 3.5 E12/L Low 4.3-5.9 [facility] Comment on above: Performed By: #### 2 [id number] #### [facility] [address] [place] [address] RBC size Nom (Bld) SEE MORPHOLOGY Invalid Interpretation Code [facility] Comment on above: Performed By: #### 2 580607 #### [facility] [address] [place] [address] WBC corrected for nucl RBC Auto (Bld) [#/Vol] 10.4 E9/L Normal 4.0-11.0 [facility] Comment on above: Performed By: #### 2 768692 #### [facility] [address] [place] [address] Capillary Glucose POCon 02-03 Glucose [Mass/Vol] 366 mg/dL High 55-99 [facility] Comment on above: Result Comment: Deon ETIENNE Performed By: #### 2 [id number] #### [facility] [address] [place] [address] Glucose [Mass/Vol] 314 mg/dL High 55-99 [facility] Comment on above: Result Comment: Deon ETIENNE Performed By: #### 2 [id number] #### [facility] [address] [place] [address] Glucose [Mass/Vol] 389 mg/dL High 55-99 [facility] Comment on above: Result Comment: Deon hathaway RN/ Performed By: #### 2 [id number] #### [facility] [address] [place] [address] Glucose [Mass/Vol] 298 mg/dL High 55-99 [facility] Comment on above: Result Comment: Deon hathaway RN/ Performed By: #### 2 [id number] #### [facility] [address] [place] [address] HEMATOLOGYOrdered By: SYSTEM SYSTEM on 02-17-2024 Microcytes Ql (Bld) PRESENT *NA* (02/17/24 10:59 AM) Invalid Interpretation Code Remisol Heme eGFRon 02-17-2024 eGFR 43 mL/min/1.73 m2 Low >=59 [facility] Comment on above: Order Comment: Order added by Discern Expert. Performed By: #### 1 [id number] #### [facility] [address] [place] [address] BMPon 02-16-2024 Anion gap [Moles/Vol] 12 mmol/L Normal 6-16 [facility] Comment on above: Performed By: #### 2 [id number] #### [facility] [address] [place] [address] Calcium [Mass/Vol] 8.5 mg/dL Low 8.9-11.1 [facility] Comment on above: Performed By: #### 2 605408 #### [facility] [address] [place] [address] Chloride [Moles/Vol] 100 mmol/L Low 101-111 [facility] Comment on above: Performed By: #### 2 [id number] #### [facility] [address] [place] [address] CO2 [Moles/Vol] 27 mmol/L Normal 21-31 [facility] Comment on above: Performed By: #### 2 [id number] #### [facility] [address] [place] [address] Creatinine [Mass/Vol] 1.8 mg/dL High 0.5-1.3 [facility] Comment on above: Performed By: #### 2 997600 #### [facility] [address] [place] [address] Glucose [Mass/Vol] 242 mg/dL High 55-199 [facility] Comment on above: Performed By: #### 2 [id number] #### [facility] [address] [place] [address] Potassium [Moles/Vol] 3.8 mmol/L Normal 3.5-5.3 [facility] Comment on above: Performed By: #### 2 [id number] #### [facility] [address] [place] [address] Sodium [Moles/Vol] 135 mmol/L Normal 135-145 [facility] Comment on above: Performed By: #### 2 [id number] #### [facility] [address] [place] [address] Urea nitrogen [Mass/Vol] 25 mg/dL High 5-21 [facility] Comment on above: Performed By: #### 2 [id number] #### [facility] [address] [place] [address] Urea nitrogen/Creatinine [Mass ratio] 14 No Units Normal 10-20 [facility] Comment on above: Performed By: #### 2 [id number] #### [facility] [address] [place] [address] CBC w/ Auto Diffon 4 Basophils/100 WBC (Bld) 0.7 % Normal 0.0-2.0 [facility] Comment on above: Performed By: #### 2 [id number] #### [facility] [address] [place] [address] Basophils/Leukocytes Auto (Bld) [Pure # fraction] 0.1 E9/L Normal 0.0-0.2 [facility] Comment on above: Performed By: #### 2 [id number] #### [facility] [address] [place] [address] Eosinophils (Bld) [#/Vol] 0.5 E9/L Normal 0.0-0.5 [facility] Comment on above: Performed By: #### 2 [id number] #### [facility] [address] [place] [address] Eosinophils/100 WBC (Bld) 4.2 % Normal 0.0-8.0 [facility] Comment on above: Performed By: #### 2 [id number] #### [facility] [address] [place] [address] Erythrocyte distribution width (RBC) [Ratio] 21.5 % High 10.9-14.2 [facility] Comment on above: Performed By: #### 2 [id number] #### [facility] [address] [place] [address] Hematocrit (Bld) [Volume fraction] 22.9 % Low 37.7-49.0 [facility] Comment on above: Performed By: #### 2 311751 #### [facility] [address] [place] [address] Hemoglobin (Bld) [Mass/Vol] 7.6 g/dL Low 13.5-17.5 [facility] Comment on above: Performed By: #### 2 [id number] #### [facility] [address] [place] [address] Hypochromia Auto Ql (Bld) PRESENT Invalid Interpretation Code [facility] Comment on above: Performed By: #### 2 [id number] #### [facility] [address] [place] [address] Lymphocytes (Bld) [#/Vol] 1.4 E9/L Normal 1.0-4.0 [facility] Comment on above: Performed By: #### 2 [id number] #### [facility] [address] [place] [address] Lymphocytes/100 WBC (Bld) 12.7 % Low 14.0-50.0 [facility] Comment on above: Performed By: #### 2 [id number] #### [facility] [address] [place] [address] MCH (RBC) [Entitic mass] 23.4 pg Low 27.0-34.0 [facility] Comment on above: Performed By: #### 2 [id number] #### [facility] [address] [place] [address] MCHC (RBC) [Mass/Vol] 33.0 g/dL Normal 31.4-36.0 [facility] Comment on above: Performed By: #### 2 [id number] #### [facility] [address] [place] [address] MCV (RBC) [Entitic vol] 70.9 fL Low 80.0-100.0 [facility] Comment on above: Performed By: #### 2 [id number] #### [facility] [address] [place] [address] Microcytes Ql (Bld) PRESENT Invalid Interpretation Code [facility] Comment on above: Performed By: #### 2 [id number] #### [facility] [address] [place] [address] Monocytes (Bld) [#/Vol] 1.3 E9/L High 0.2-1.0 [facility] [facility] Comment on above: Performed By: #### 2 [id number] #### [facility] [address] [place] [address] Neutrophils (Bld) [#/Vol] 7.7 E9/L High 2.0-7.5 [facility] Comment on above: Performed By: #### 2 [id number] #### [facility] [address] [place] [address] Neutrophils/100 WBC (Bld) 70.1 % Normal 36.0-75.0 [facility] Comment on above: Performed By: #### 2 [id number] #### [facility] [address] [place] [address] Platelet 284.0 E9/L Normal 150.0-500. 0 [facility] Comment on above: Performed By: #### 2 [id number] #### [facility] [address] [place] [address] Platelet mean volume (Bld) [Entitic vol] 8.4 fL Normal 6.4-10.8 [facility] Comment on above: Performed By: #### 2 [id number] #### [facility] [address] [place] [address] RBC (Bld) [#/Vol] 3.2 E12/L Low 4.3-5.9 [facility] Comment on above: Performed By: #### 2 [id number] #### [facility] [address] [place] [address] RBC size Nom (Bld) SEE MORPHOLOGY Invalid Interpretation Code [facility] Comment on above: Performed By: #### 2 [id number] #### [facility] [address] [place] [address] WBC corrected for nucl RBC Auto (Bld) [#/Vol] 11.0 E9/L Normal 4.0-11.0 [facility] Comment on above: Performed By: #### 2 [id number] #### [facility] [address] [place] [address] Capillary Glucose POCon 02-03 Glucose [Mass/Vol] 266 mg/dL High 55-99 [facility] Comment on above: Result Comment: Deon ETIENNE Performed By: #### 2 [id number] #### [facility] [address] [place] [address] Glucose [Mass/Vol] 319 mg/dL High 55-99 [facility] Comment on above: Result Comment: Deon ETIENNE Performed By: #### 2 [id number] #### [facility] [address] [place] [address] Glucose [Mass/Vol] 403 mg/dL High 55-99 [facility] Comment on above: Result Comment: Deon ETIENNE Performed By: #### 2 [id number] #### [facility] [address] [place] [address] Glucose [Mass/Vol] 319 mg/dL High 55-99 [facility] Comment on above: Result Comment: Deon ETIENNE Performed By: #### 2 [id number] #### [facility] [address] [place] [address] Glucose [Mass/Vol] 253 mg/dL High 55-99 [facility] Comment on above: Result Comment: Deon ETIENNE Performed By: #### 2 [id number] #### [facility] [address] [place] [address] Coding Queryon 02-16-2024 Coding Query Coding Query [...] H Dx: acute blood loss anemia Normal [facility] Inpatient Clinical Summaryon 02-16-2024 Inpatient Clinical Summary Inpatient Clinical Summary [address] [address] Clinical Summary Person Information: Name: MYRA PICKARD SR Age: 58 Years : 1965 Sex: Male PCP: TERESA LYNCH DO Marital Status: Race: White Ethnicity: Non- or Language: Albanian Visit Id: Visit Reason: I70.261 Speciality: Acuity: Enc Type: Inpatient Med Service: Medical Arrival: 02/12/2024 11:13:26 Discharge: Dispo Type: Address: [address] [place] [id number] Provider Notes: Diagnosis: 1:Hx of right BKA; [...] MD Follow up: Patient Education Information: Normal [facility] Inpatient Patient Summaryon 02-16-2024 Inpatient Patient Summary Inpatient Patient Summary [place] [id number] Patient Discharge Instructions PERSON INFORMATION Name: MYRA PICKARD SR Date of : 1965 Current Date: 02/16/2024 10:02:10 PHYSICIANS Admitting Physician: Simon HERRERA, Mike Weathers Primary Care Physician: TERESA LYNCH DO PCP Comment: Discharge Diagnosis: 1:Hx of right BKA; 2:Essential hypertension; 3:Hyperlipidemia; 4:Anemia; 5: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 Comment: I, MYRA PICKARD SR, have received [...] day. Last Dose: (more content not included)... [facility] Insurance Correspondence Off [facility] [place] 02-16-2024 Insurance Correspondence Office Insurance Correspondence Office [...] correct. Mike Montes M.D. noe Dictated: 02/12/2024 [id number] Transcribed: 02/13/2024 Normal [facility] Interdisciplinary Note - Jorge e Manageron 02-16-2024 Interdisciplinary Note - Wire Technician Interdisciplinary Note - Wire Technician This SW received notification from [facility] that patient's had called and wanted to cancel the Acute Rehab and proceed with [facility]. TC from Acute Rehab was received [...] SW also explained that if going to [facility], precert would have to be obtained. SW spent a lengthy amount of time going over the differences between the 2 faciliites with patient. He informed SW that his choice was to go to [facility], not Acute [facility]hab. SW notified Acute Rehab [...] 3 steps to enter their home. Normal [facility] Comment on above: Result Comment: Elec tronically Signed By: Evens SÁNCHEZ, Fely Martin\.nile\Date and Time Signed: 02/16/24 12:45 EDT eGFRon 02-16-2024 eGFR 43 mL/min/1.73 m2 Low >=59 [facility] Comment on above: Order Comment: Order added by Discern Expert. Performed By: #### 1 [id number] #### [facility] [address] [place] [address] BMPon 02-15-2024 Anion gap [Moles/Vol] 9 mmol/L Normal 6-16 [facility] Comment on above: Performed By: #### 2 [id number] #### [facility] [address] [place] [address] Calcium [Mass/Vol] 8.3 mg/dL Low 8.9-11.1 [facility] Comment on above: Performed By: #### 2 [id number] #### [facility] [address] [place] [address] Chloride [Moles/Vol] 98 mmol/L Low 101-111 [facility] Comment on above: Performed By: #### 2 [id number] #### [facility] [address] [place] [address] CO2 [Moles/Vol] 30 mmol/L Normal 21-31 [facility] Comment on above: Performed By: #### 2 [id number] #### [facility] [address] [place] [address] Creatinine [Mass/Vol] 1.9 mg/dL High 0.5-1.3 [facility] Comment on above: Performed By: #### 2 [id number] #### [facility] [address] [place] [address] Glucose [Mass/Vol] 319 mg/dL High 55-199 [facility] Comment on above: Performed By: #### 2 [id number] #### [facility] [address] [place] [address] Potassium [Moles/Vol] 3.9 mmol/L Normal 3.5-5.3 [facility] Comment on above: Performed By: #### 2 [id number] #### [facility] [address] [place] [address] Sodium [Moles/Vol] 133 mmol/L Low 135-145 [facility] Comment on above: Performed By: #### 2 [id number] #### [facility] [address] [place] [address] Urea nitrogen [Mass/Vol] 25 mg/dL High 5-21 [facility] Comment on above: Performed By: #### 2 [id number] #### [facility] [address] [place] [address] Urea nitrogen/Creatinine [Mass ratio] 13 No Units Normal 10-20 [facility] Comment on above: Performed By: #### 2 [id number] #### [facility] [address] [place] [address] CBC w/Indiceson 02-15-2024 Erythrocyte distribution width (RBC) [Ratio] 20.9 % High 10.9-14.2 [facility] Comment on above: Performed By: #### 2 [id number] #### [facility] [address] [place] [address] Hematocrit (Bld) [Volume fraction] 22.2 % Low 37.7-49.0 [facility] Comment on above: Performed By: #### 2 [id number] #### [facility] [address] [place] [address] Hemoglobin (Bld) [Mass/Vol] 7.7 g/dL Low 13.5-17.5 [facility] Comment on above: Performed By: #### 2 [id number] #### [facility] [address] [place] [address] MCH (RBC) [Entitic mass] 24.3 pg Low 27.0-34.0 [facility] Comment on above: Performed By: #### 2 [id number] #### [facility] [address] [place] [address] MCHC (RBC) [Mass/Vol] 34.6 g/dL Normal 31.4-36.0 [facility] Comment on above: Performed By: #### 2 [id number] #### [facility] [address] [place] [address] MCV (RBC) [Entitic vol] 70.2 fL Low 80.0-100.0 [facility] Comment on above: Performed By: #### 2 [id number] #### [facility] [address] [place] [address] Platelet 239.0 E9/L Normal 150.0-500. 0 [facility] Comment on above: Performed By: #### 2 [id number] #### [facility] [address] [place] [address] Platelet mean volume (Bld) [Entitic vol] 8.2 fL Normal 6.4-10.8 [facility] Comment on above: Performed By: #### 2 [id number] #### [facility] [address] [place] [address] RBC (Bld) [#/Vol] 3.2 E12/L Low 4.3-5.9 [facility] Comment on above: Performed By: #### 2 [id number] #### [facility] [address] [place] [address] RBC size Nom (Bld) NORMAL Invalid Interpretation Code [facility] Comment on above: Performed By: #### 2 [id number] #### [facility] [address] [place] [address] WBC corrected for nucl RBC Auto (Bld) [#/Vol] 9.0 E9/L Normal 4.0-11.0 [facility] Comment on above: Performed By: #### 2 [id number] #### [facility] [address] [place] [address] CHEMISTRYOrdered By: SYSTEM SYSTEM on 02-15-2024 Magnesium [Mass/Vol] 1.7 mg/dL Normal 1.3 - 2 .4 mg/dL Remisol Chem Phosphate [Mass/Vol] 3.8 mg/dL Normal 1.9 - 4 .6 mg/dL Remisol Chem COAGULATIONOrdered By: Nely Barrera on 02-15-2024 aPTT Coag (PPP) [Time] 28.6 s Normal 25.1 - 36.5 second(s) [facility] Coag Comment on above: Interpretive Data: [...] the same coagulation reagent and instrumentation as [facility]. Currently there are no coagulation studies available worldwide for children to 14 days, and no normal ranges. Heparin therapeutic range (represented by Anti-Factor Xa activity of 0.2 - 0.4 U/mL) corresponds to PTT of 56.6 - 109.0 sec. INR Coag (PPP) [Relative time] 1.09 {INR} Invalid Interpretation Code [facility] Comment on above: Interpretive Data: I NR results are specifically intended to assess patients stabilized on long-term Anticoagulation therapy suggested INR s Less Intensive Anticoagulation 2.0 3.0 Conventional Range 3.0 4.5 PT Coag (PPP) [Time] 12.2 s Normal 9.4 - 1 2.5 second(s) [facility] Comment on above: Interpretive Data: [...] the same coagulation reagent and instrumentation as [facility]. Currently there are no coagulation studies available worldwide for children to 14 days, and no normal ranges. Capillary Glucose POCon 02-03 Glucose [Mass/Vol] 398 mg/dL High 55-99 [facility] Comment on above: Result Comment: Deon hathaway RN/ Performed By: #### 2 [id number] #### [facility] [address] [place] [address] Glucose [Mass/Vol] 337 mg/dL High 55-99 [facility] Comment on above: Result Comment: Deon ETIENNE Performed By: #### 2 [id number] #### [facility] [address] [place] [address] Glucose [Mass/Vol] 228 mg/dL High 55-99 [facility] Comment on above: Result Comment: Deon ETIENNE Performed By: #### 2 [id number] #### [facility] [address] [place] [address] Glucose [Mass/Vol] 309 mg/dL High 55-99 [facility] Comment on above: Result Comment: Deon ETIENNE Performed By: #### 2 [id number] #### [facility] [address] [place] [address] Interdisciplinary Note - Jorge e Manageron 02-15-2024 Interdisciplinary Note - Wire Technician Interdisciplinary Note - Wire Technician CRM to room 309 Patient is awake, [...] like rehab stay. Choices were [facility] and [facility]. [facility] can accept. Patient was provided CRM contact, white board updated. CRM following DC date when [facility] can take per Dr Antonio patient is not ready for DC now drop in HGB, bleeding at stump and still on IV pain meds Rehab needs him on an oral regimen Normal [facility] Comment on above: Result Comment: Elec tronically Signed By: Raina Aguilar\.br\Date and Time Signed: 02/15/24 14:08 EDT Magnesiumon 02-15-2024 Magnesium [Mass/Vol] 1.7 mg/dL Normal 1.3-2.4 [facility] Comment on above: Performed By: #### 2 [id number] #### [facility] [address] [place] [address] PT & PTTon 02-15-2024 aPTT Coag (PPP) [Time] 28.6 second(s) Normal 25.1-36.5 [facility] Comment on above: Result Comment: Para [...] the same coagulation reagent and instrumentation as [facility]. Currently there are no coagulation studies available worldwide for children to 14 days, and no normal ranges. Heparin therapeutic range (represented by Anti-Factor Xa activity of 0.2 - 0.4 U/mL) corresponds to PTT of 56.6 - 109.0 sec. Performed By: #### 1 [id number] #### [facility] [address] [place] [address] INR Coag (PPP) [Relative time] 1.09 {INR} Invalid Interpretation Code [facility] Comment on above: Result Comment: INR results are specifically intended to assess patients stabilized on long-term Anticoagulation therapy suggested INR?s ?Less Intensive Anticoagulation? 2.0 ? 3.0 Conventional Range 3.0 ? 4.5 Performed By: #### 1 [id number] #### [facility] [address] [place] [address] PT Coag (PPP) [Time] 12.2 second(s) Normal 9.4-12.5 [facility] Comment on above: Result Comment: 15 [...] the same coagulation reagent and instrumentation as [facility]. Currently there are no coagulation studies available worldwide for children to 14 days, and no normal ranges. Performed By: #### 1 [id number] #### [facility] [address] [place] [address] Phosphoruson 02-15-2024 Phosphate [Mass/Vol] 3.8 mg/dL Normal 1.9-4.6 [facility] Comment on above: Performed By: #### 2 [id number] #### [facility] [address] [place] [address] eGFRon 02-15-2024 eGFR 40 mL/min/1.73 m2 Low >=59 [facility] Comment on above: Order Comment: Order added by Discern Expert. Performed By: #### 1 [id number] #### [facility] [address] [place] [address] BMPon 02-14-2024 Anion gap [Moles/Vol] 12 mmol/L Normal 6-16 [facility] Comment on above: Performed By: #### 2 [id number] #### [facility] [address] [place] [address] Calcium [Mass/Vol] 8.3 mg/dL Low 8.9-11.1 [facility] Comment on above: Performed By: #### 2 [id number] #### [facility] [address] [place] [address] Chloride [Moles/Vol] 96 mmol/L Low 101-111 [facility] Comment on above: Performed By: #### 2 [id number] #### [facility] [address] [place] [address] CO2 [Moles/Vol] 28 mmol/L Normal 21-31 [facility] Comment on above: Performed By: #### 2 [id number] #### [facility] [address] [place] [address] Creatinine [Mass/Vol] 1.8 mg/dL High 0.5-1.3 [facility] Comment on above: Performed By: #### 2 [id number] #### [facility] [address] [place] [address] Glucose [Mass/Vol] 298 mg/dL High 55-199 [facility] Comment on above: Performed By: #### 2 [id number] #### [facility] [address] [place] [address] Potassium [Moles/Vol] 3.7 mmol/L Normal 3.5-5.3 [facility] Comment on above: Performed By: #### 2 [id number] #### [facility] [address] [place] [address] Sodium [Moles/Vol] 132 mmol/L Low 135-145 [facility] Comment on above: Performed By: #### 2 [id number] #### [facility] [address] [place] [address] Urea nitrogen [Mass/Vol] 21 mg/dL Normal 5-21 [facility] Comment on above: Performed By: #### 2 000662 #### [facility] [address] [place] [address] Urea nitrogen/Creatinine [Mass ratio] 12 No Units Normal 10-20 [facility] Comment on above: Performed By: #### 2 [id number] #### [facility] [address] [place] [address] CBC w/ Auto Diffon 4 Basophils/100 WBC (Bld) 1.9 % Normal 0.0-2.0 [facility] Comment on above: Performed By: #### 2 [id number] #### [facility] [address] [place] [address] Basophils/Leukocytes Auto (Bld) [Pure # fraction] 0.2 E9/L Normal 0.0-0.2 [facility] Comment on above: Performed By: #### 2 [id number] #### [facility] [address] [place] [address] Eosinophils (Bld) [#/Vol] 0.3 E9/L Normal 0.0-0.5 [facility] Comment on above: Performed By: #### 2 192461 #### [facility] [address] [place] [address] Eosinophils/100 WBC (Bld) 3.1 % Normal 0.0-8.0 [facility] Comment on above: Performed By: #### 2 [id number] #### [facility] [address] [place] [address] Erythrocyte distribution width (RBC) [Ratio] 21.1 % High 10.9-14.2 [facility] Comment on above: Performed By: #### 2 [id number] #### [facility] [address] [place] [address] Hematocrit (Bld) [Volume fraction] 26.4 % Low 37.7-49.0 [facility] Comment on above: Performed By: #### 2 186070 #### [facility] [address] [place] [address] Hemoglobin (Bld) [Mass/Vol] 8.5 g/dL Low 13.5-17.5 [facility] Comment on above: Performed By: #### 2 [id number] #### [facility] [address] [place] [address] Hypochromia Auto Ql (Bld) PRESENT Invalid Interpretation Code [facility] Comment on above: Performed By: #### 2 [id number] #### [facility] [address] [place] [address] Lymphocytes (Bld) [#/Vol] 1.1 E9/L Normal 1.0-4.0 [facility] Comment on above: Performed By: #### 2 114283 #### [facility] [address] [place] [address] Lymphocytes/100 WBC (Bld) 11.3 % Low 14.0-50.0 [facility] Comment on above: Performed By: #### 2 [id number] #### [facility] [address] [place] [address] MCH (RBC) [Entitic mass] 23.3 pg Low 27.0-34.0 [facility] Comment on above: Performed By: #### 2 [id number] #### [facility] [address] [place] [address] MCHC (RBC) [Mass/Vol] 32.4 g/dL Normal 31.4-36.0 [facility] Comment on above: Performed By: #### 2 655225 #### [facility] [address] [place] [address] MCV (RBC) [Entitic vol] 71.8 fL Low 80.0-100.0 [facility] Comment on above: Performed By: #### 2 [id number] #### [facility] [address] [place] [address] Microcytes Ql (Bld) PRESENT Invalid Interpretation Code [facility] Comment on above: Performed By: #### 2 [id number] #### [facility] [address] [place] [address] Monocytes (Bld) [#/Vol] 1.0 E9/L Normal 0.2-1.0 [facility] Comment on above: Performed By: #### 2 [id number] #### [facility] [address] [place] [address] Neutrophils (Bld) [#/Vol] 7.5 E9/L Normal 2.0-7.5 [facility] Comment on above: Performed By: #### 2 551783 #### [facility] [address] [place] [address] Neutrophils/100 WBC (Bld) 74.1 % Normal 36.0-75.0 [facility] Comment on above: Performed By: #### 2 [id number] #### [facility] [address] [place] [address] Platelet mean volume (Bld) [Entitic vol] 8.3 fL Normal 6.4-10.8 [facility] Comment on above: Performed By: #### 2 [id number] #### [facility] [address] [place] [address] Platelets (Bld) [#/Vol] 244.0 E9/L Normal 150.0-500. 0 [facility] Comment on above: Performed By: #### 2 [id number] #### [facility] [address] [place] [address] RBC (Bld) [#/Vol] 3.7 E12/L Low 4.3-5.9 [facility] Comment on above: Performed By: #### 2 750778 #### [facility] [address] [place] [address] RBC size Nom (Bld) SEE MORPHOLOGY Invalid Interpretation Code [facility] Comment on above: Performed By: #### 2 560279 #### [facility] [address] [place] [address] WBC corrected for nucl RBC Auto (Bld) [#/Vol] 10.2 E9/L Normal 4.0-11.0 [facility] Comment on above: Performed By: #### 2 [id number] #### [facility] [address] [place] [address] CHEMISTRYOrdered By: SYSTEM SYSTEM on 02-14-2024 Magnesium [Mass/Vol] 1.8 mg/dL Normal 1.3 - 2 .4 mg/dL Remisol Chem Phosphate [Mass/Vol] 3.8 mg/dL Normal 1.9 - 4 .6 mg/dL Rem[facility] Chem COAGULATIONOrdered By: Deborah Parks on 02-14-2024 aPTT Coag (PPP) [Time] 28.8 s Normal 25.1 - 36.5 second(s) [facility] Comment on above: Interpretive Data: [...] the same coagulation reagent and instrumentation as [facility]. Currently there are no coagulation studies available worldwide for children to 14 days, and no normal ranges. Heparin therapeutic range (represented by Anti-Factor Xa activity of 0.2 - 0.4 U/mL) corresponds to PTT of 56.6 - 109.0 sec. INR Coag (PPP) [Relative time] 1.04 {INR} Invalid Interpretation Code [facility] Comment on above: Interpretive Data: I NR results are specifically intended to assess patients stabilized on long-term Anticoagulation therapy suggested INR s Less Intensive Anticoagulation 2.0 3.0 Conventional Range 3.0 4.5 PT Coag (PPP) [Time] 11.7 s Normal 9.4 - 1 2.5 second(s) [facility] [place] [employer] Comment on above: Interpretive Data: [...] the same coagulation reagent and instrumentation as [facility] [place]. Currently there are no coagulation studies available worldwide for children to 14 days, and no normal ranges. Capillary Glucose POCon 02-03 Glucose [Mass/Vol] 269 mg/dL High 55-99 [facility] Comment on above: Result Comment: Deon hathaway RN/ Performed By: #### 2 [id number] #### [facility] [address] [place] [address] Glucose [Mass/Vol] 279 mg/dL High 55-99 [facility] Comment on above: Result Comment: Deon hathaway RN/ Performed By: #### 2 [id number] #### [facility] [address] [place] [address] Glucose [Mass/Vol] 285 mg/dL High 55-99 [facility] Comment on above: Result Comment: Repe at Test Performed By: #### 2 [id number] #### [facility] [address] [place] [address] Glucose [Mass/Vol] 242 mg/dL High 55-99 [facility] Comment on above: Result Comment: Repe at Test Performed By: #### 2 [id number] #### [facility] [address] [place] [address] Interdisciplinary Note - Jorge e Manageron 02-14-2024 Interdisciplinary Note - Wire Technician Interdisciplinary Note - Wire Technician This SW rounded with patient in room 309 this morning. Patient is alert, oriented, and involved in his plan of care. He remains agreeable to going to 1) [facility] - referral pending, 2) [facility] - they have accepted, or 3) [facility] - they have accepted. Acute Rehab is awaiting therapy notes to make their final determination. SW will update patient once determination is received. Patient did request that SW contact his , Yamileth, with an update this afternoon. TC made to Yamileth and she was updated on the above. She voiced that patient has been refusing her recommendation for [facility], however SW let her know that he was agreeable this morning. This SW had discussed the differences between Acute Rehab and SNF to patient. Normal [facility] Comment on above: Result Comment: Elec tronically Signed By: Evens SÁNCHEZ, Fely Martin\.nile\Date and Time Signed: 02/14/24 12:15 EDT Interdisciplinary Note - Wire Technician Interdisciplinary Note - Wire Technician This SW rounded with patient in room 309 this morning. Patient is alert, oriented, and involved in his plan of care. He remains agreeable to going to 1) [facility] - referral pending, 2) [facility] - they have accepted, or 3) [facility] - they have accepted. Acute Rehab is awaiting therapy notes to make their final determination. SW will update patient once determination is received. Patient did request that SW contact his , Yamileth, with an update this afternoon. Normal [facility] Comment on above: Result Comment: Elec tronically Signed By: Evens SÁNCHEZ, Fely Martin\.nile\Date and Time Signed: 02/14/24 09:38 EDT Interdisciplinary [...] follow daily progressing as pt tolerates. Normal [facility] Magnesiumon 02-14-2024 Magnesium [Mass/Vol] 1.8 mg/dL Normal 1.3-2.4 [facility] Comment on above: Performed By: #### 2 [id number] #### [facility] [address] [place] [address] PT & PTTon 02-14-2024 aPTT Coag (PPP) [Time] 28.8 second(s) Normal 25.1-36.5 [facility] Comment on above: Result Comment: Para [...] the same coagulation reagent and instrumentation as [facility] [place]. Currently there are no coagulation studies available worldwide for children to 14 days, and no normal ranges. Heparin therapeutic range (represented by Anti-Factor Xa activity of 0.2 - 0.4 U/mL) corresponds to PTT of 56.6 - 109.0 sec. Performed By: #### 1 [id number] #### [facility] [address] [place] [address] INR Coag (PPP) [Relative time] 1.04 {INR} Invalid Interpretation Code [facility] Comment on above: Result Comment: INR results are specifically intended to assess patients stabilized on long-term Anticoagulation therapy suggested INR?s ?Less Intensive Anticoagulation? 2.0 ? 3.0 Conventional Range 3.0 ? 4.5 Performed By: #### 1 [id number] #### [facility] [address] [place] [address] PT Coag (PPP) [Time] 11.7 second(s) Normal 9.4-12.5 [facility] Comment on above: Result Comment: 15 [...] the same coagulation reagent and instrumentation as [facility] [place]. Currently there are no coagulation studies available worldwide for children to 14 days, and no normal ranges. Performed By: #### 1 [id number] #### [facility] [address] [place] [address] Phosphoruson 02-14-2024 Phosphate [Mass/Vol] 3.8 mg/dL Normal 1.9-4.6 [facility] Comment on above: Performed By: #### 2 [id number] #### [facility] [address] [place] [address] eGFRon 02-14-2024 eGFR 43 mL/min/1.73 m2 Low >=59 [facility] Comment on above: Order Comment: Order added by Discern Expert. Performed By: #### 1 [id number] #### [facility] [address] [place] [address] BMPon 02-13-2024 Anion gap [Moles/Vol] 11 mmol/L Normal 6-16 [facility] Comment on above: Performed By: #### 2 [id number] #### [facility] [address] [place] [address] Calcium [Mass/Vol] 8.0 mg/dL Low 8.9-11.1 [facility] Comment on above: Performed By: #### 2 [id number] #### [facility] [address] [place] [address] Chloride [Moles/Vol] 99 mmol/L Low 101-111 [facility] Comment on above: Performed By: #### 2 [id number] #### [facility] [address] [place] [address] CO2 [Moles/Vol] 26 mmol/L Normal 21-31 [facility] Comment on above: Performed By: #### 2 [id number] #### [facility] [address] [place] [address] Creatinine [Mass/Vol] 1.6 mg/dL High 0.5-1.3 [facility] Comment on above: Performed By: #### 2 [id number] #### [facility] [address] [place] [address] Glucose [Mass/Vol] 234 mg/dL High 55-199 [facility] Comment on above: Performed By: #### 2 [id number] #### [facility] [address] [place] [address] Potassium [Moles/Vol] 4.0 mmol/L Normal 3.5-5.3 [facility] Comment on above: Performed By: #### 2 [id number] #### [facility] [address] [place] [address] Sodium [Moles/Vol] 132 mmol/L Low 135-145 [facility] Comment on above: Performed By: #### 2 [id number] #### [facility] [address] [place] [address] Urea nitrogen [Mass/Vol] 19 mg/dL Normal 5-21 [facility] Comment on above: Performed By: #### 2 [id number] #### [facility] [address] [place], [place] [id number] Urea nitrogen/Creatinine [Mass ratio] 12 No Units Normal 10-20 [facility] Comment on above: Performed By: #### 2 [id number] #### [facility] [address] [place], [place] [id number] CBC w/Indiceson 02-13-2024 Erythrocyte distribution width (RBC) [Ratio] 18.8 % High 10.9-14.2 [facility] Comment on above: Performed By: #### 2 [id number] #### [facility] [address] [place] [address] Hematocrit (Bld) [Volume fraction] 19.5 % Low 37.7-49.0 [facility] Comment on above: Performed By: #### 2 [id number] #### [facility] [address] [place] [address] Hemoglobin (Bld) [Mass/Vol] 6.3 g/dL Abnormal 13.5-17.5 [facility] Comment on above: Result Comment: Crit ical Result Verified by Repeat Analysis Results called to DAVID WELSH by BRAVO and read back on 02/13/2024 05:48:17. Performed By: #### 2 [id number] #### [facility] [address] [place] [address] Hypochromia Auto Ql (Bld) PRESENT Invalid Interpretation Code [facility] Comment on above: Performed By: #### 2 [id number] #### [facility] [address] [place] [address] MCH (RBC) [Entitic mass] 21.6 pg Low 27.0-34.0 [facility] Comment on above: Performed By: #### 2 [id number] #### [facility] [address] [place] [address] MCHC (RBC) [Mass/Vol] 32.3 g/dL Normal 31.4-36.0 [facility] Comment on above: Performed By: #### 2 [id number] #### [facility] [address] [place] [address] MCV (RBC) [Entitic vol] 67.0 fL Low 80.0-100.0 [facility] Comment on above: Performed By: #### 2 [id number] #### [facility] [address] [place] [address] Microcytes Ql (Bld) PRESENT Invalid Interpretation Code [facility] Comment on above: Performed By: #### 2 [id number] #### [facility] [address] [place] [address] Platelet 245.0 E9/L Normal 150.0-500. 0 [facility] Comment on above: Performed By: #### 2 [id number] #### [facility] [address] [place] [address] Platelet mean volume (Bld) [Entitic vol] 8.2 fL Normal 6.4-10.8 [facility] Comment on above: Performed By: #### 2 [id number] #### [facility] [address] [place] [address] RBC (Bld) [#/Vol] 2.9 E12/L Low 4.3-5.9 [facility] Comment on above: Performed By: #### 2 [id number] #### [facility] [address] [place] [address] RBC size Nom (Bld) SEE MORPHOLOGY Invalid Interpretation Code [facility] Comment on above: Performed By: #### 2 [id number] #### [facility] [address] [place] [address] WBC corrected for nucl RBC Auto (Bld) [#/Vol] 12.9 E9/L High 4.0-11.0 [facility] Comment on above: Performed By: #### 2 [id number] #### [facility] [address] [place] [address] CHEMISTRYOrdered By: Simon Helm on 02-13-2024 HbA1c (Bld) [Mass fraction] 10.3 % High <=5.9% [facility] [place] [employer] CHEMISTRYOrdered By: SYSTEM SYSTEM on 02-13-2024 Magnesium [Mass/Vol] 1.3 mg/dL Normal 1.3 - 2 .4 mg/dL [facility] Phosphate [Mass/Vol] 2.5 mg/dL Normal 1.9 - 4 .6 mg/dL [facility] COAGULATIONOrdered By: Pietro Garibay on 02-13-2024 aPTT Coag (PPP) [Time] 27.5 s Normal 25.1 - 36.5 second(s) [facility] [place] [facility] Comment on above: Interpretive Data: [...] the same coagulation reagent and instrumentation as [facility] [place]. Currently there are no coagulation studies available worldwide for children to 14 days, and no normal ranges. Heparin therapeutic range (represented by Anti-Factor Xa activity of 0.2 - 0.4 U/mL) corresponds to PTT of 56.6 - 109.0 sec. INR Coag (PPP) [Relative time] 1.11 {INR} Invalid Interpretation Code [facility] [place] [facility] Comment on above: Interpretive Data: I NR results are specifically intended to assess patients stabilized on long-term Anticoagulation therapy suggested INR s Less Intensive Anticoagulation 2.0 3.0 Conventional Range 3.0 4.5 PT Coag (PPP) [Time] 12.5 s Normal 9.4 - 1 2.5 second(s) [facility] [place] [facility] Comment on above: Interpretive Data: [...] the same coagulation reagent and instrumentation as [facility] [place]. Currently there are no coagulation studies available worldwide for children to 14 days, and no normal ranges. Capillary Glucose POCon 02-03 0-2023 Glucose [Mass/Vol] 332 mg/dL High 55-99 [facility] Comment on above: Result Comment: Deon ETIENNE Performed By: #### 2 [id number] #### [facility] [address] [place] [address] Glucose [Mass/Vol] 194 mg/dL High 55-99 [facility] Comment on above: Result Comment: Deon ETIENNE Performed By: #### 2 [id number] #### [facility] [address] [place] [address] Glucose [Mass/Vol] 195 mg/dL High 55-99 [facility] Comment on above: Result Comment: Deon ETIENNE Performed By: #### 2 [id number] #### [facility] [address] [place] [address] Glucose [Mass/Vol] 194 mg/dL High 55-99 [facility] Comment on above: Result Comment: Deon ETIENNE Performed By: #### 2 [id number] #### [facility] [address] [place] [address] Glucose [Mass/Vol] 324 mg/dL High 55-99 [facility] Comment on above: Result Comment: Deon hathaway RN/ Performed By: #### 2 [id number] #### [facility] [address] [place] [address] Coding Queryon 02-13-2024 Coding Query Coding Query From: Eliz Diaz RN To: Marisela HERRERA, Elan Robbins; Sent: 02/13/2024 10:18:56 EDT ! Subject: Coding Query Due Date/Time: 02/14/2024 10:18:00 EDT Caller Name: PICKARD MYRA CHRISTIAN; Caller [...] desired or expected. Thank you!eliz [phone] Normal [facility] Hct & Hgbon 02-13-2024 Hematocrit (Bld) [Volume fraction] 24.4 % Low 37.7-49.0 [facility] Comment on above: Performed By: #### 1 [id number] #### [facility] [address] [place] [address] Hemoglobin (Bld) [Mass/Vol] 7.9 g/dL Low 13.5-17.5 [facility] Comment on above: Performed By: #### 1 [id number] #### [facility] [address] [place] [address] [id number] 02-13-2024 HbA1c (Bld) [Mass fraction] 10.3 % High <=5.9 [facility] Comment on above: Performed By: #### 7 [id number] #### [facility] [address] [place] [address] Interdisciplinary Note - Jorge e Manageron 02-13-2024 Interdisciplinary Note - Wire Technician Interdisciplinary Note - Wire Technician CRM to room 309 Patient is awake, [...] CRM did try to call Spouse at [phone] and left . CRM did leave printed SNF list in room. Patient was provided CRM contact, white board updated. CRM following DC date TBD. CRM will get updates at 10 AM from hospitalist called CRM choices [facility] and [facility] for rehab [facility] Comment on above: Result Comment: Elec tronically Signed By: Raina Aguilar\.br\Date and Time Signed: 02/13/24 13:10 EDT Interdisciplinary Note - Wire Technician Interdisciplinary Note - Wire Technician CRM to room 309 Patient is awake, [...] CRM did try to call Spouse at [phone] and left VM. CRM did leave printed SNF list in room. Patient was provided CRM contact, white board updated. CRM following DC date TBD. CRM will get updates at 10 AM from hospitalist [facility] Comment on above: Result [...] eval when Pt is medically appropriate. Normal [facility] Interdisciplinary Note - PTo n 02-13-2024 Interdisciplinary Note - PT Interdisciplinary Note - PT Order received and chart reviewed. Pt with critical Hgb levels at this time. Will hold and attempt tomorrow Normal [facility] Magnesiumon 02-13-2024 Magnesium [Mass/Vol] 1.3 mg/dL Normal 1.3-2.4 [facility] Comment on above: Performed By: #### 2 [id number] #### [facility] [address] [place] [address] Main OR Intraoperative Recor don 02-13-2024 Main OR Intraoperative Record Main OR Intraoperative Record IntraOp Document Type FT Summary Primary Physician: Mike Montes MD Finalized Date/Time: 02/13/24 13:38:10 Pt. Name: MATTEO CHRISTIAN, MYRA Aceves/Sex: 1965 Male Med Rec #: [id number] Physician: Mike Montes MD Financial #: [id number] Pt. 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 Last Modified By: Sara RN, Tyree Ruiz RN, Tyree Ruiz RN, Tyree Hopkins 02/12/24 14:44:09 02/12/24 14:44:09 02/12/24 14:44:09 Entry 4 Entry 5 Entry 6 Case Attendee Robinson RN, Jenise Jaquez SALES REPRESENTATIVE PRINTING PAPER, Radha Corona Role Performed Filler Shredder Machine - Primary SALES REPRESENTATIVE PRINTING PAPER/SA Scrub - Primary Time In 02/12/24 13:26:00 02/12/24 13:26:00 02/12/24 13:26:00 Time Out 02/12/24 14:44:00 02/12/24 14:44:00 02/12/24 14:44:00 Procedure KNEE AMPUTATION KNEE AMPUTATION KNEE AMPUTATION BELOW(Right) BELOW(Right) BELOW(Right) Comments in orientation Last Modified By: Sara RN, Tyree Ruiz RN, Tyree Ruiz RN, Tyree [facility] 02/12/24 14:44:09 02/12/24 14:44:09 02/12/24 14:44:09 General Comments: Lima Puckett- district plant superintendent, observing surgical case. 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 Postop Diagnosis I70.261-Atherosclerosis Outcomes Met? 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 [...] and tissue Entry 1 Skin Integrity Intact, [place], Warm, & Skin Abnormality No Dry Outcomes Met? Yes Last Modified By: Tyree Ruiz RN 02/12/24 12:50:23 Post-Care Text: The patient is free from signs an (more content not included)... Normal [facility] PT & PTTon 02-13-2024 aPTT Coag (PPP) [Time] 27.5 second(s) Normal 25.1-36.5 [facility] Comment on above: Result Comment: Para [...] the same coagulation reagent and instrumentation as [facility] [place]. Currently there are no coagulation studies available worldwide for children to 14 days, and no normal ranges. Heparin therapeutic range (represented by Anti-Factor Xa activity of 0.2 - 0.4 U/mL) corresponds to PTT of 56.6 - 109.0 sec. Performed By: #### 1 [id number] #### [facility] [address] [place] [address] INR Coag (PPP) [Relative time] 1.11 {INR} Invalid Interpretation Code [facility] Comment on above: Result Comment: INR results are specifically intended to assess patients stabilized on long-term Anticoagulation therapy suggested INR?s ?Less Intensive Anticoagulation? 2.0 ? 3.0 Conventional Range 3.0 ? 4.5 Performed By: #### 1 [id number] #### [facility] [address] [place] [address] PT Coag (PPP) [Time] 12.5 second(s) Normal 9.4-12.5 [facility] Comment on above: Result Comment: 15 [...] the same coagulation reagent and instrumentation as [facility] [place]. Currently there are no coagulation studies available worldwide for children to 14 days, and no normal ranges. Performed By: #### 1 [id number] #### [facility] [address] [place] [address] Phosphoruson 02-13-2024 Phosphate [Mass/Vol] 2.5 mg/dL Normal 1.9-4.6 [facility] Comment on above: Performed By: #### 2 [id number] #### [facility] [address] [place] [address] RCOon 02-13-2024 # of Units 2 Invalid Interpretation Code [facility] Comment on above: Result Comment: 02/12 6:32 [id number] Blood product ready and called to David Hoskins at 02/13/2024 06:32:44 EDT by [id number]. Performed By: #### 1 [id number] #### [facility] [address] [place] [address] Date Required 20240213 Invalid Interpretation Code [facility] Comment on above: Performed By: #### 1 [id number] #### [facility] [address] [place] [address] Order to Transfuse Yes Normal [facility] Comment on above: Performed By: #### 1 [id number] #### [facility] [address] [place] [address] Product Type None Required Invalid Interpretation Code [facility] Comment on above: Performed By: #### 1 [id number] #### [facility] [address] [place] [address] eGFRon 02-13-2024 eGFR 49 mL/min/1.73 m2 Low >=59 [facility] Comment on above: Order Comment: Order added by Discern Expert. Performed By: #### 1 [id number] #### [facility] [address] [place] [address] ABO/Rhon 02-12-2024 ABO/Rh Positive Invalid Interpretation Code [facility] Comment on above: Performed By: #### 2 [id number] #### [facility] [address] [place] [address] ABO/Rh History Checkon 02-11 ABO/Rh History Check Type verified by second s Normal [facility] Comment on above: Performed By: #### 1 [id number] #### [facility] [address] [place] [address] ABO/Rh Retypeon 02-12-2024 ABO/Rh Retype Interp Positive Invalid Interpretation Code [facility] Comment on above: Performed By: #### 1 [id number] #### [facility] [address] [place] [address] ABSCon 02-12-2024 ABSC Gel Interp Negative Normal [facility] Comment on above: Performed By: #### 1 [id number] #### [facility] [address] [place] [address] BLOOD BANKOrdered By: Rizwana Helm on 02-12-2024 ABO/Rh Retype Interp Positive Invalid Interpretation Code [facility] [place] BB Subsection BLOOD BANKOrdered By: Cassie Gomez on 02-12-2024 ABO/Rh Interp Positive Invalid Interpretation Code [facility] [place] BB Subsection ABSC Gel Interp Negative (02/12/24 12:00 PM) Normal [facility] [place] BB Subsection BMPon 02-12-2024 Anion gap [Moles/Vol] 12 mmol/L Normal 6-16 [facility] Comment on above: Performed By: #### 2 [id number] #### [facility] [address] [place] [address] Calcium [Mass/Vol] 8.1 mg/dL Low 8.9-11.1 [facility] Comment on above: Performed By: #### 2 [id number] #### [facility] [address] [place] [address] Chloride [Moles/Vol] 102 mmol/L Normal 101-111 [facility] Comment on above: Performed By: #### 2 [id number] #### [facility] [address] [place] [address] CO2 [Moles/Vol] 26 mmol/L Normal 21-31 [facility] Comment on above: Performed By: #### 2 [id number] #### [facility] [address] [place] [address] Creatinine [Mass/Vol] 1.5 mg/dL High 0.5-1.3 [facility] Comment on above: Performed By: #### 2 [id number] #### [facility] [address] [place] [address] Glucose [Mass/Vol] 274 mg/dL High 55-199 [facility] Comment on above: Performed By: #### 2 [id number] #### [facility] [address] [place] [address] Potassium [Moles/Vol] 4.5 mmol/L Normal 3.5-5.3 [facility] Comment on above: Performed By: #### 2 [id number] #### [facility] [facility] [address] [place] [address] Sodium [Moles/Vol] 135 mmol/L Normal 135-145 [facility] Comment on above: Performed By: #### 2 [id number] #### [facility] [address] [place] [address] Urea nitrogen [Mass/Vol] 16 mg/dL Normal 5-21 [facility] Comment on above: Performed By: #### 2 [id number] #### [facility] [address] [place] [address] Urea nitrogen/Creatinine [Mass ratio] 11 No Units Normal 10-20 [facility] Comment on above: Performed By: #### 2 [id number] #### [facility] [address] [place] [address] Blood Bank ID#on 02-12-2024 BBID# [id number] Invalid Interpretation Code [facility] Comment on above: Performed By: #### 1 [id number] #### [facility] [address] [place] [address] CBC w/Indiceson 02-12-2024 Erythrocyte distribution width (RBC) [Ratio] 18.5 % High 10.9-14.2 [facility] Comment on above: Performed By: #### 2 [id number] #### [facility] [address] [place] [address] Hematocrit (Bld) [Volume fraction] 23.5 % Low 37.7-49.0 [facility] Comment on above: Performed By: #### 2 [id number] #### [facility] [address] [place] [address] Hemoglobin (Bld) [Mass/Vol] 7.2 g/dL Low 13.5-17.5 [facility] Comment on above: Performed By: #### 2 [id number] #### [facility] [address] [place] [address] Hypochromia Auto Ql (Bld) PRESENT Invalid Interpretation Code [facility] Comment on above: Performed By: #### 2 [id number] #### [facility] [address] [place] [address] MCH (RBC) [Entitic mass] 21.1 pg Low 27.0-34.0 [facility] Comment on above: Performed By: #### 2 [id number] #### [facility] [address] [place] [address] MCHC (RBC) [Mass/Vol] 30.7 g/dL Low 31.4-36.0 [facility] Comment on above: Performed By: #### 2 [id number] #### [facility] [address] [place] [address] MCV (RBC) [Entitic vol] 68.8 fL Low 80.0-100.0 [facility] Comment on above: Performed By: #### 2 [id number] #### [facility] [address] [place] [address] Microcytes Ql (Bld) PRESENT Invalid Interpretation Code [facility] Comment on above: Performed By: #### 2 [id number] #### [facility] [address] [place] [address] Platelet mean volume (Bld) [Entitic vol] 8.0 fL Normal 6.4-10.8 [facility] Comment on above: Performed By: #### 2 [id number] #### [facility] [address] [place] [address] Platelets (Bld) [#/Vol] 244.0 E9/L Normal 150.0-500. 0 [facility] Comment on above: Performed By: #### 2 [id number] #### [facility] [address] [place] [address] Polychromasia LM Ql (Bld) PRESENT Invalid Interpretation Code [facility] Comment on above: Performed By: #### 2 [id number] #### [facility] [address] [place] [address] RBC (Bld) [#/Vol] 3.4 E12/L Low 4.3-5.9 [facility] Comment on above: Performed By: #### 2 [id number] #### [facility] [address] [place] [address] RBC size Nom (Bld) NORMAL Invalid Interpretation Code [facility] Comment on above: Performed By: #### 2 [id number] #### [facility] [address] [place] [address] Target cells LM Ql (Bld) PRESENT Invalid Interpretation Code [facility] Comment on above: Performed By: #### 2 [id number] #### [facility] [address] [place] [address] WBC corrected for nucl RBC Auto (Bld) [#/Vol] 14.7 E9/L High 4.0-11.0 [facility] Comment on above: Performed By: #### 2 [id number] #### [facility] [address] [place] [address] CHEMISTRYOrdered By: SYSTEM SYSTEM on 02-12-2024 Glucose [Mass/Vol] 580 mg/dL Invalid Interpretation Code 55 - 199 mg/dL [facility] Comment on above: Result Comment: Crit ical Result Verified by Repeat Analysis Critical Result [id number] Called to and read back by: DAVID WELSH at: 02/12/2024 21:01:57 by:BAB Capillary Glucose POCon Glucose [Mass/Vol] 441 mg/dL High 55-99 [facility] Comment on above: Result Comment: Deon ETIENNE Performed By: #### 2 [id number] #### [facility] [address] [place] [address] Glucose [Mass/Vol] mg/dL Abnormal 55-99 [facility] Comment on above: Result Comment: Deon ETIENNE Performed By: #### 2 [id number] #### [facility] [address] [place] [address] Glucose [Mass/Vol] mg/dL Abnormal 55-99 [facility] Comment on above: Result Comment: Deon ETIENNE Performed By: #### 2 [id number] #### [facility] [address] [place] [address] Glucose [Mass/Vol] 259 mg/dL High 55-99 [facility] Comment on above: Result Comment: Repe at Test Performed By: #### 2 [id number] #### [facility] [address] [place] [address] Glucose [Mass/Vol] 205 mg/dL High 55-99 [facility] Comment on above: Result Comment: Deon ETIENNE Performed By: #### 2 [id number] #### [facility] [address] [place] [address] Glucoseon 02-12-2024 Glucose [Mass/Vol] 580 mg/dL Abnormal 55-199 [facility] Comment on above: Result Comment: Crit ical Result Verified by Repeat Analysis Critical Result [id number] Called to and read back by: DAVID WELSH at: 02/12/2024 21:01:57 by:BAB Performed By: #### 2 [id number] #### [facility] [address] [place] [address] HEMATOLOGYOrdered By: SYSTEM SYSTEM on 02-12-2024 Polychromasia LM Ql (Bld) PRESENT *NA* (02/12/24 4:47 PM) Invalid Interpretation Code Remisol Heme Target cells LM Ql (Bld) PRESENT *NA* (02/12/24 4:47 PM) Invalid Interpretation Code Remisol Heme Hct & Hgbon 02-12-2024 Hematocrit (Bld) [Volume fraction] 22.7 % Low 37.7-49.0 [facility] Comment on above: Performed By: #### 1 [id number] #### [facility] [address] [place] [address] Hemoglobin (Bld) [Mass/Vol] 7.3 g/dL Low 13.5-17.5 [facility] Comment on above: Performed By: #### 1 [id number] #### [facility] [address] [place] [address] Main OR Intraoperative Recor don 02-12-2024 Main OR Intraoperative Record Main OR Intraoperative Record IntraOp Document Type FT Summary Primary Physician: Mike Montes MD Finalized Date/Time: 02/12/24 14:48:28 Pt. Name: MATTEO CHRISTIAN, MYRA Aceves/Sex: 1965 Male Med Rec #: [id number] Physician: Mike Montes MD Financial #: [id number] Pt. Type: A Room/Bed: Admit/Disch: 02/12/24 11:13:26 - Institution: Case Times FT Entry 1 Patient Times In Room 02/12/24 13:26:00 Out Room 02/12/24 14:45:00 Procedure Times Start 02/12/24 13:54:00 Stop 02/12/24 14:36:00 Anesthesia Times Start 02/12/24 13:26:00 Stop 02/12/24 14:45:00 Last Modified By: Tyree Ruiz RN 02/12/24 14:44:51 Case Attendance FT Entry 1 Entry 2 Entry 3 Case Attendee Lamonte MOON, Alexander Montes MD, Mike Ruiz RN, Tyree Hopkins Role Performed Anesthesiologist Surgeon - Primary Filler Shredder Machine - Primary Belt Sander Stone Time In 02/12/24 13:26:00 02/12/24 13:45:00 02/12/24 13:26:00 Time Out 02/12/24 14:44:00 02/12/24 14:31:00 02/12/24 14:44:00 Procedure KNEE AMPUTATION KNEE AMPUTATION KNEE AMPUTATION BELOW(Right) BELOW(Right) BELOW(Right) 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 , 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 Last Modified By: Sara RN, Tyree Ruiz RN, Tyree Ruiz RN, Tyree Hopkins 02/12/24 14:44:09 02/12/24 14:44:09 02/12/24 14:44:09 Entry 4 Entry 5 Entry 6 Case Attendee Robinson STERN, Jenise Jaquez CST, Radha Corona Role Performed Filler Shredder Machine - Primary SALES REPRESENTATIVE PRINTING PAPER/SA Scrub - Primary Time In 02/12/24 13:26:00 02/12/24 13:26:00 02/12/24 13:26:00 Time Out 02/12/24 14:44:00 02/12/24 14:44:00 02/12/24 14:44:00 Procedure KNEE AMPUTATION KNEE AMPUTATION KNEE AMPUTATION BELOW(Right) BELOW(Right) BELOW(Right) Comments in orientation Last Modified By: Sara STERN, Tyree Ruiz RN, Tyree Ruiz RN, Tyree Hopkins 02/12/24 14:44:09 02/12/24 14:44:09 02/12/24 14:44:09 General Comments: Lima Puckett- district plant superintendent, observing surgical case. 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 Postop Diagnosis I70.261-Atherosclerosis Outcomes Met? 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 [...] and tissue Entry 1 Skin Integrity Intact, [place], Warm, & Skin Abnormality No Dry Outcomes Met? Yes Last Modified By: Tyree Ruiz RN 02/12/24 12:50:23 Post-Care Text: The patient is free from signs and symptoms of injury caused by extraneous objects Patient Positioning FT Pre-Ca (more content not included)... Normal [facility] Main OR PACU I Recordon Main OR PACU I Record Main OR PACU I Rec ord PACU Phase I Document Type FT Summary Primary Physician: Mike Montes MD Finalized Date/Time: 02/12/24 17:14:55 Pt. Name: MATTEO CHRISTIANMYRA/Sex: 1965 Male Med Rec #: [id number] Physician: Mike Montes MD Financial #: [id number] Pt. Type: A Room/Bed: N309/01 Admit/Disch: 02/12/24 [...] Signed By: Lima Bolaños RN 02/12/24 17:14 [facility] Main OR Preoperative Recordo n 02-12-2024 Main OR Preoperative Record Main OR Preoperative Record PreOp Document Type FT Summary Primary Physician: Mike Montes MD Finalized Date/Time: 02/12/24 13:26:50 Pt. Name: MYRA PICKARD SR/Sex: 1965 Male Med Rec #: [id number] Physician: Mike Montes MD Financial #: [id number] Pt. Type: Room/Bed: [place] [address] Admit/Disch: 02/12/24 11:13:26 - Institution: Case Times [...] Signed By: Tyree Ruiz RN 02/12/24 13:26 [facility] PT & PTTon 02-12-2024 aPTT Coag (PPP) [Time] 28.0 second(s) Normal 25.1-36.5 [facility] Comment on above: Result Comment: Para [...] the same coagulation reagent and instrumentation as [facility]. Currently there are no coagulation studies available worldwide for children to 14 days, and no normal ranges. Heparin therapeutic range (represented by Anti-Factor Xa activity of 0.2 - 0.4 U/mL) corresponds to PTT of 56.6 - 109.0 sec. Performed By: #### 1 [id number] #### [facility] [address] [place] [address] INR Coag (PPP) [Relative time] 1.12 {INR} Invalid Interpretation Code [facility] Comment on above: Result Comment: INR results are specifically intended to assess patients stabilized on long-term Anticoagulation therapy suggested INR?s ?Less Intensive Anticoagulation? 2.0 ? 3.0 Conventional Range 3.0 ? 4.5 Performed By: #### 1 [id number] #### [facility] [address] [place] [address] PT Coag (PPP) [Time] 12.6 second(s) High 9.4-12.5 [facility] Comment on above: Result Comment: 15 [...] the same coagulation reagent and instrumentation as [facility]. Currently there are no coagulation studies available worldwide for children to 14 days, and no normal ranges. Performed By: #### 1 [id number] #### [facility] [address] [place] [address] eGFRon 02-12-2024 eGFR 53 mL/min/1.73 m2 Low >=59 [facility] Comment on above: Order Comment: Order added by Discern Expert. Performed By: #### 1 [id number] #### [facility] [address] [place] [address] Activated partial thrombopla stin time (aPTT) in platelet poor plasma by coagulation aon 02-08-2024 aPTT Coag (PPP) [Time] 25.6 s 22.3-36.2 [facility] aPTT Coag (PPP) [Time] Activated partial thromboplastin time (aPTT) in platelet poor plasma by coagulation a 22.3-36.2 [facility] Basophils Auto (Bld) [#/Vol] on 02-08-2024 Basophils (Bld) [#/Vol] 0.1 10 3/uL 0.0-0.1 [facility] Basophils (Bld) [#/Vol] Automated basophil count 0.0-0.1 [facility] Basophils/100 WBC Auto (Bld) on 02-08-2024 Basophils/100 WBC (Bld) 0.7 % 0.2-2.0 [facility] Basophils/100 WBC (Bld) Automated basophil % 0.2-2.0 [facility] Eosinophils/100 WBC Auto (Bl d)on 02-08-2024 Eosinophils/100 WBC (Bld) 3.1 % 0.9-7.0 [facility] Eosinophils/100 WBC (Bld) Automated eosinophil % 0.9-7.0 [facility] Erythrocyte distribution wid th Auto (RBC) [Ratio]on 02-08-2024 Erythrocyte distribution width (RBC) [Ratio] 16.3 % High 11.0-15.0 [facility] Erythrocyte distribution width (RBC) [Ratio] Erythrocyte distribution width [Ratio] by Automated count High 11.0-15.0 [facility] Estimated glomerular filtrat ion rate (GFR) non- Americanon 02-08-2024 GFR/1.73 sq M.predicted among non-blacks MDRD (S/P/Bld) [Vol rate/Area] 38 mL/min/{1.73_m2} Low >=60 [facility] GFR/1.73 sq M.predicted among non-blacks MDRD (S/P/Bld) [Vol rate/Area] Estimated glomerular filtration rate (GFR) non- Low >=60 [facility] Hematocrit Auto (Bld) [Volum e fraction]on 02-08-2024 Hematocrit (Bld) [Volume fraction] 29.8 % Low 42.0-54.0 [facility] Hematocrit (Bld) [Volume fraction] Hematocrit [Volume Fraction] of Blood by Automated count Low 42.0-54.0 [facility] Hemoglobin [Mass/volume] in Bloodon 02-08-2024 Hemoglobin (Bld) [Mass/Vol] 9.1 g/dL Low 14.0-18.0 [facility] Hemoglobin (Bld) [Mass/Vol] Hemoglobin [Mass/volume] in Blood Low 14.0-18.0 [facility] INR in Platelet poor plasma by Coagulation assayon 02-08-2024 INR Coag (PPP) [Relative time] 1.02 {INR} [facility] Comment on above: DESIRED INR:2.0-3.0 CONDITIONS NOT LISTED BELOW2.5-3.5 FOR PROSTHETIC HEART VALVE REPLACEMENT2.5-3.5 RECURRENT THROMBOSIS INR Coag (PPP) [Relative time] INR in Platelet poor plasma by Coagulation assay [facility] Comment on above: DESIRED INR:2.0-3.0 CONDITIONS NOT LISTED BELOW2.5-3.5 FOR PROSTHETIC HEART VALVE REPLACEMENT2.5-3.5 RECURRENT THROMBOSIS Laboratory - Chemistry and C hemistry - challengeon 02-08-2024 Calcium [Mass/Vol] 9.4 mg/dL 8.5-10.1 [facility] Chloride [Moles/Vol] 99 mmol/L 98-107 [facility] CO2 [Moles/Vol] 28.9 mmol/L 21.0-32.0 [facility] Creatinine [Mass/Vol] 1.84 mg/dL High 0.70-1.30 [facility] GFR/1.73 sq M.predicted MDRD (S/P/Bld) [Vol rate/Area] 46 mL/min/{1.73_m2} Low >=60 [facility] Glucose [Mass/Vol] 184 mg/dL High 74-106 [facility] Potassium [Moles/Vol] 4.0 mmol/L 3.5-5.1 [facility] Sodium [Moles/Vol] 138 mmol/L 136-145 [facility] Urea nitrogen [Mass/Vol] 21.0 mg/dL High 7.0-18.0 [facility] Urea nitrogen/Creatinine [Mass ratio] 11.4 mg/mg [facility] Laboratory - Hematology and Cell countson 02-08-2024 Immature granulocytes/100 WBC (Bld) 0.4 % 0.0-0.5 [facility] Leukocytes [#/volume] correc jorge for nucleated erythrocytes in Blood by Automated counon 02-08-2024 WBC corrected for nucl RBC Auto (Bld) [#/Vol] 10.1 10 3/uL 4.0-11.0 [facility] WBC corrected for nucl RBC Auto (Bld) [#/Vol] Leukocytes [#/volume] corrected for nucleated erythrocytes in Blood by Automated coun 4.0-11.0 [facility] Lymphocytes Auto (Bld) [#/Vo l]on 02-08-2024 Lymphocytes (Bld) [#/Vol] 1.6 10 3/uL 1.2-3.8 [facility] Lymphocytes (Bld) [#/Vol] Lymphocytes [#/volume] in Blood by Automated count 1.2-3.8 [facility] Lymphocytes/100 WBC Auto (Bl d)on 02-08-2024 Lymphocytes/100 WBC (Bld) 15.6 % Low 20.5-60.0 [facility] Lymphocytes/100 WBC (Bld) Lymphocytes/100 leukocytes in Blood by Automated count Low 20.5-60.0 [facility] MCH Auto (RBC) [Entitic mass ]on 02-08-2024 MCH (RBC) [Entitic mass] 21.9 pg Low 25.9-34.0 [facility] MCH (RBC) [Entitic mass] MCH [Entitic mass] by Automated count Low 25.9-34.0 [facility] MCHC Auto (RBC) [Mass/Vol]on 02-08-2024 MCHC (RBC) [Mass/Vol] 30.5 g/dL 29.9-35.2 [facility] MCHC (RBC) [Mass/Vol] MCHC [Mass/volume] by Automated count 29.9-35.2 [facility] MCV Auto (RBC) [Entitic vol] on 02-08-2024 MCV (RBC) [Entitic vol] 71.8 fL Low 80.0-94.0 [facility] MCV (RBC) [Entitic vol] MCV [Entitic volume] by Automated count Low 80.0-94.0 [facility] Monocytes Auto (Bld) [#/Vol] on 02-08-2024 Monocytes (Bld) [#/Vol] 0.8 10 3/uL 0.3-0.8 [facility] Monocytes (Bld) [#/Vol] Automated blood monocyte count 0.3-0.8 [facility] Monocytes/100 WBC Auto (Bld) on 02-08-2024 Monocytes/100 WBC (Bld) 7.5 % 1.7-12.0 [facility] Monocytes/100 WBC (Bld) Automated monocyte % 1.7-12.0 [facility] Neutrophils Auto (Bld) [#/Vo l]on 02-08-2024 Neutrophils (Bld) [#/Vol] 7.4 10 3/uL High 1.4-6.5 [facility] Neutrophils (Bld) [#/Vol] Neutrophils [#/volume] in Blood by Automated count High 1.4-6.5 [facility] Neutrophils/100 WBC Auto (Bl d)on 02-08-2024 Neutrophils/100 WBC (Bld) 72.7 % 43.0-75.0 [facility] Neutrophils/100 WBC (Bld) Automated neutrophil % 43.0-75.0 [facility] No Panel Informationon 02-07 Eosinophils # (Auto) 0.3 10 3/uL 0.0-0.7 [facility] Immature Granulocyte # (Auto) 0.04 10 3/uL High 0.00-0.03 [facility] 11.4 [facility] 0.3 10 3/uL 0.0-0.7 [facility] 21.0 mg/dL High 7.0-18.0 [facility] 9.4 mg/dL 8.5-10.1 [facility] 99 mmol/L 98-107 [facility] 28.9 mmol/L 21.0-32.0 [facility] 0.04 10 3/uL High 0.00-0.03 [facility] 1.84 mg/dL High 0.70-1.30 [facility] 0.4 % 0.0-0.5 [facility] 46 Low >=60 [facility] 184 mg/dL High 74-106 [facility] 4.0 mmol/L 3.5-5.1 [facility] 138 mmol/L 136-145 [facility] Platelet mean volume Auto (B ld) [Entitic vol]on 02-08-2024 Platelet mean volume (Bld) [Entitic vol] 10.7 fL 9.5-13.5 [facility] Platelet mean volume (Bld) [Entitic vol] Platelet mean volume [Entitic volume] in Blood by Automated count .-.5 [facility] Platelets Auto (Bld) [#/Vol] on 02-08-2024 Platelets (Bld) [#/Vol] 322 10 3/uL 150-450 [facility] Platelets (Bld) [#/Vol] Platelets [#/volume] in Blood by Automated count 150-450 [facility] Prothrombin time (PT)on PT Coag (PPP) [Time] 10.8 s 9.0-11.6 [facility] PT Coag (PPP) [Time] Prothrombin time (PT) 9.0- 11.6 [facility] RBC Auto (Bld) [#/Vol]on RBC (Bld) [#/Vol] 4.15 10 6/uL Low 4.70-6.10 [facility] RBC (Bld) [#/Vol] Erythrocytes [#/volu me] in Blood by Automated count Low 4.70-6.10 [facility] Serum or plasma anion gap de terminationon 02-08-2024 Anion gap [Moles/Vol] 14.1 mmol[facility] Anion gap [Moles/Vol] Serum or plasma an ion gap determination [facility] ALL CBC WITH AUTO DIFFon BASOPHILS ABSOLUTE AUTO 0.1 [facility] Basophils/100 WBC (Bld) 1.2 % 0.2 - 2.0 % [facility] Eosinophils/100 WBC (Bld) 2.9 % 0.9 - 7.0 % [facility] Erythrocyte distribution width (RBC) [Ratio] 16.4 % High 11.0 - 15.0 % [facility] Hematocrit (Bld) [Volume fraction] 28.7 % Low 42.0 - 54.0 % [facility] Hemoglobin (Bld) [Mass/Vol] 8.7 g/dL Low 14.0 - 18.0 g/dL [facility] IMMATURE GRANULOCYTES ABS AUTO 0.06 High [facility] Immature granulocytes/100 WBC (Bld) 0.7 % High 0.0 - 0.5 % [facility] Interpretation and review of laboratory results Abnormal [facility] LYMPHOCYTES ABSOLUTE AUTO 1.8 [facility] Lymphocytes/100 WBC (Bld) 21.5 % 20.5 - 60.0 % [facility] MCH (RBC) [Entitic mass] 22.3 pg Low 25.9 - 34.0 pg [facility] MCHC (RBC) [Mass/Vol] 30.3 g/dL 29.9 - 35.2 g/dL [facility] MCV (RBC) [Entitic vol] 73.6 fL Low 80.0 - 94.0 fL [facility] MONOCYTES ABSOLUTE AUTO 0.7 [facility] Monocytes/100 WBC (Bld) 8.7 % 1.7 - 12.0 % [facility] NEUTROPHILS ABSOLUTE AUTO 5.4 [facility] Neutrophils/100 WBC (Bld) 65.0 % 43.0 - 75.0 % [facility] Platelet mean volume (Bld) [Entitic vol] 10.4 fL 9.5 - 13.5 fL [facility] TBH EO # 0.2 [facility] TBH PLT 397 [facility] TB RBC 3.90 Low [facility] WBC 8.3 [facility] Activated partial thrombopla stin time (aPTT) in platelet poor plasma by coagulation aon 02-01-2024 aPTT Coag (PPP) [Time] 25.3 s 22.3-36.2 [facility] Coag (PPP) [Time] Activated partial thromboplastin time (aPTT) in platelet poor plasma by coagulation a 22.3-36.2 [facility] Basophils Auto (Bld) [#/Vol] on 02-01-2024 Basophils (Bld) [#/Vol] 0.1 10 3/uL 0.0-0.1 [facility] Basophils (Bld) [#/Vol] Automated basophil count 0.0-0.1 [facility] Basophils/100 WBC Auto (Bld) on 02-01-2024 Basophils/100 WBC (Bld) 1.2 % 0.2-2.0 [facility] Basophils/100 WBC (Bld) Automated basophil % 0.2-2.0 [facility] Eosinophils/100 WBC Auto (Bl d)on 02-01-2024 Eosinophils/100 WBC (Bld) 2.9 % 0.9-7.0 [facility] Eosinophils/100 WBC (Bld) Automated eosinophil % 0.9-7.0 [facility] Erythrocyte distribution wid th Auto (RBC) [Ratio]on 02-01-2024 Erythrocyte distribution width (RBC) [Ratio] 16.4 % High 11.0-15.0 [facility] Erythrocyte distribution width (RBC) [Ratio] Erythrocyte distribution width [Ratio] by Automated count High 11.0-15.0 [facility] Estimated glomerular filtrat ion rate (GFR) non- Americanon 02-01-2024 GFR/1.73 sq M.predicted among non-blacks MDRD (S/P/Bld) [Vol rate/Area] 34 mL/min/{1.73_m2} Low >=60 [facility] GFR/1.73 sq M.predicted among non-blacks MDRD (S/P/Bld) [Vol rate/Area] Estimated glomerular filtration rate (GFR) non- Low >=60 [facility] Hematocrit Auto (Bld) [Volum e fraction]on 02-01-2024 Hematocrit (Bld) [Volume fraction] 28.7 % Low 42.0-54.0 [facility] Hematocrit (Bld) [Volume fraction] Hematocrit [Volume Fraction] of Blood by Automated count Low 42.0-54.0 [facility] Hemoglobin [Mass/volume] in Bloodon 02-01-2024 Hemoglobin (Bld) [Mass/Vol] 8.7 g/dL Low 14.0-18.0 [facility] Hemoglobin (Bld) [Mass/Vol] Hemoglobin [Mass/volume] in Blood Low 14.0-18.0 [facility] INR in Platelet poor plasma by Coagulation assayon 02-01-2024 INR Coag (PPP) [Relative time] 1.02 {INR} [facility] [facility] Comment on above: DESIRED INR:2.0-3.0 CONDITIONS NOT LISTED BELOW2.5-3.5 FOR PROSTHETIC HEART VALVE REPLACEMENT2.5-3.5 RECURRENT THROMBOSIS INR Coag (PPP) [Relative time] INR in Platelet poor plasma by Coagulation assay [facility] Comment on above: DESIRED INR:2.0-3.0 CONDITIONS NOT LISTED BELOW2.5-3.5 FOR PROSTHETIC HEART VALVE REPLACEMENT2.5-3.5 RECURRENT THROMBOSIS Laboratory - Chemistry and C hemistry - challengeon 02-01-2024 Calcium [Mass/Vol] 9.0 mg/dL 8.5-10.1 [facility] Chloride [Moles/Vol] 100 mmol/L 98-107 [facility] CO2 [Moles/Vol] 26.7 mmol/L 21.0-32.0 [facility] Creatinine [Mass/Vol] 2.03 mg/dL High 0.70-1.30 [facility] GFR/1.73 sq M.predicted MDRD (S/P/Bld) [Vol rate/Area] 41 mL/min/{1.73_m2} Low >=60 [facility] Glucose [Mass/Vol] 268 mg/dL High 74-106 [facility] Potassium [Moles/Vol] 4.3 mmol/L 3.5-5.1 [facility] Sodium [Moles/Vol] 137 mmol/L 136-145 [facility] Urea nitrogen [Mass/Vol] 25.0 mg/dL High 7.0-18.0 [facility] Urea nitrogen/Creatinine [Mass ratio] 12.3 mg/mg [facility] Laboratory - Hematology and Cell countson 02-01-2024 Immature granulocytes/100 WBC (Bld) 0.7 % High 0.0-0.5 [facility] Leukocytes [#/volume] correc jorge for nucleated erythrocytes in Blood by Automated counon 02-01-2024 WBC corrected for nucl RBC Auto (Bld) [#/Vol] 8.3 10 3/uL 4.0-11.0 [facility] WBC corrected for nucl RBC Auto (Bld) [#/Vol] Leukocytes [#/volume] corrected for nucleated erythrocytes in Blood by Automated coun 4.0-11.0 [facility] Lymphocytes Auto (Bld) [#/Vo l]on 02-01-2024 Lymphocytes (Bld) [#/Vol] 1.8 10 3/uL 1.2-3.8 [facility] Lymphocytes (Bld) [#/Vol] Lymphocytes [#/volume] in Blood by Automated count 1.2-3.8 [facility] Lymphocytes/100 WBC Auto (Bl d)on 02-01-2024 Lymphocytes/100 WBC (Bld) 21.5 % 20.5-60.0 [facility] Lymphocytes/100 WBC (Bld) Lymphocytes/100 leukocytes in Blood by Automated count 20.5-60.0 [facility] MCH Auto (RBC) [Entitic mass ]on 02-01-2024 MCH (RBC) [Entitic mass] 22.3 pg Low 25.9-34.0 [facility] MCH (RBC) [Entitic mass] MCH [Entitic mass] by Automated count Low 25.9-34.0 [facility] MCHC Auto (RBC) [Mass/Vol]on 02-01-2024 MCHC (RBC) [Mass/Vol] 30.3 g/dL 29.9-35.2 [facility] MCHC (RBC) [Mass/Vol] MCHC [Mass/volume] by Automated count 29.9-35.2 [facility] MCV Auto (RBC) [Entitic vol] on 02-01-2024 MCV (RBC) [Entitic vol] 73.6 fL Low 80.0-94.0 [facility] MCV (RBC) [Entitic vol] MCV [Entitic volume] by Automated count Low 80.0-94.0 [facility] Monocytes Auto (Bld) [#/Vol] on 02-01-2024 Monocytes (Bld) [#/Vol] 0.7 10 3/uL 0.3-0.8 [facility] Monocytes (Bld) [#/Vol] Automated blood monocyte count 0.3-0.8 [facility] Monocytes/100 WBC Auto (Bld) on 02-01-2024 Monocytes/100 WBC (Bld) 8.7 % 1.7-12.0 [facility] Monocytes/100 WBC (Bld) Automated monocyte % 1.7-12.0 [facility] Neutrophils Auto (Bld) [#/Vo l]on 02-01-2024 Neutrophils (Bld) [#/Vol] 5.4 10 3/uL 1.4-6.5 [facility] Neutrophils (Bld) [#/Vol] Neutrophils [#/volume] in Blood by Automated count 1.4-6.5 [facility] Neutrophils/100 WBC Auto (Bl d)on 02-01-2024 Neutrophils/100 WBC (Bld) 65.0 % 43.0-75.0 [facility] Neutrophils/100 WBC (Bld) Automated neutrophil % 43.0-75.0 [facility] No Panel Informationon 01-31 Eosinophils # (Auto) 0.2 10 3/uL 0.0-0.7 [facility] Immature Granulocyte # (Auto) 0.06 10 3/uL High 0.00-0.03 [facility] 12.3 [facility] 25.0 mg/dL High 7.0-18.0 [facility] 0.2 10 3/uL 0.0-0.7 [facility] 9.0 mg/dL 8.5-10.1 [facility] 100 mmol/L 98-107 [facility] 26.7 mmol/L 21.0-32.0 [facility] 2.03 mg/dL High 0.70-1.30 [facility] 0.06 10 3/uL High 0.00-0.03 [facility] 41 Low >=60 [facility] 0.7 % High 0.0-0.5 [facility] 268 mg/dL High 74-106 [facility] 4.3 mmol/L 3.5-5.1 [facility] 137 mmol/L 136-145 [facility] Platelet mean volume Auto (B ld) [Entitic vol]on 02-01-2024 Platelet mean volume (Bld) [Entitic vol] 10.4 fL 9.5-13.5 [facility] Platelet mean volume (Bld) [Entitic vol] Platelet mean volume [Entitic volume] in Blood by Automated count 9.5-13.5 [facility] Platelets Auto (Bld) [#/Vol] on 02-01-2024 Platelets (Bld) [#/Vol] 397 10 3/uL 150-450 [facility] Platelets (Bld) [#/Vol] Platelets [#/volume] in Blood by Automated count 150-450 [facility] Prothrombin time (PT)on 01-04 PT Coag (PPP) [Time] 10.8 s 9.0-11.6 [facility] PT Coag (PPP) [Time] Prothrombin time (PT) 9.0- 11.6 [facility] RBC Auto (Bld) [#/Vol]on RBC (Bld) [#/Vol] 3.90 10 6/uL Low 4.70-6.10 [facility] RBC (Bld) [#/Vol] Erythrocytes [#/volu me] in Blood by Automated count Low 4.70-6.10 [facility] Serum or plasma anion gap de terminationon 02-01-2024 Anion gap [Moles/Vol] 14.6 mmol/L Fi [facility] Anion gap [Moles/Vol] Serum or plasma an ion gap determination [facility] Provider Letteron 01-29-2024 Provider Letter Provider Letter January 29, 2024 [address]RA PICKARD [address] [place] [address] [address] [place] [address] : 1965 Dear Myra, We have been [...] [facility] [address], [place] [address] [facility] Operative Reporton Operative Report Operative [...] and then obtained a micro-access upsized to 5-Arabic sheath, placed the catheter in the abdominal [...] well. Mike Montes M.D. ca Dictated: 01/08/2024 [id number] Transcribed: 01/08/2024 [facility] Comment on above: Result [...] with any questions. Thank you! Marybeth Marquise [facility] BMPon 01-08-2024 Anion gap [Moles/Vol] 13 mmol/L Normal 6-16 [facility] Comment on above: Performed By: #### 2 [id number] #### [facility] Laboratory [address] [place] [address] Calcium [Mass/Vol] 9.1 mg/dL Normal 8.9-11.1 [facility] Comment on above: Performed By: #### 2 [id number] #### [facility] [address] [place] [address] Chloride [Moles/Vol] 103 mmol/L Normal 101-111 [facility] Comment on above: Performed By: #### 2 [id number] #### [facility] [address] [place] [address] CO2 [Moles/Vol] 25 mmol/L Normal 21-31 [facility] Comment on above: Performed By: #### 2 [id number] #### [facility] [address] [place] [address] Creatinine [Mass/Vol] 1.9 mg/dL High 0.5-1.3 [facility] Comment on above: Performed By: #### 2 [id number] #### [facility] [address] [place] [address] Glucose [Mass/Vol] 138 mg/dL Normal 55-199 [facility] Comment on above: Performed By: #### 2 [id number] #### [facility] [address] [place] [address] Potassium [Moles/Vol] 4.2 mmol/L Normal 3.5-5.3 [facility] Comment on above: Performed By: #### 2 [id number] #### [facility] [address] [place] [address] Sodium [Moles/Vol] 137 mmol/L Normal 135-145 [facility] Comment on above: Performed By: #### 2 [id number] #### [facility] [address] [place] [address] Urea nitrogen [Mass/Vol] 26 mg/dL High 5-21 [facility] Comment on above: Performed By: #### 2 [id number] #### [facility] [address] [place] [address] Urea nitrogen/Creatinine [Mass ratio] 14 No Units Normal 10-20 [facility] Comment on above: Performed By: #### 2 [id number] #### [facility] [address] [place] [address] CBC w/ Auto Diffon 4 Basophils/100 WBC (Bld) 1.2 % Normal 0.0-2.0 [facility] Comment on above: Performed By: #### 2 [id number] #### [facility] [address] [place] [address] Basophils/Leukocytes Auto (Bld) [Pure # fraction] 0.1 E9/L Normal 0.0-0.2 [facility] Comment on above: Performed By: #### 2 [id number] #### [facility] [address] [place] [address] Eosinophils (Bld) [#/Vol] 0.4 E9/L Normal 0.0-0.5 [facility] Comment on above: Performed By: #### 2 [id number] #### [facility] [address] [place] [address] Eosinophils/100 WBC (Bld) 4.3 % Normal 0.0-8.0 [facility] Comment on above: Performed By: #### 2 [id number] #### [facility] [address] [place] [address] Erythrocyte distribution width (RBC) [Ratio] 17.3 % High 10.9-14.2 [facility] Comment on above: Performed By: #### 2 [id number] #### [facility] [address] [place] [address] Hematocrit (Bld) [Volume fraction] 26.8 % Low 37.7-49.0 [facility] Comment on above: Performed By: #### 2 [id number] #### [facility] [address] [place] [address] Hemoglobin (Bld) [Mass/Vol] 8.8 g/dL Low 13.5-17.5 [facility] Comment on above: Performed By: #### 2 [id number] #### [facility] [address] [place] [address] Hypochromia Auto Ql (Bld) PRESENT Invalid Interpretation Code [facility] Comment on above: Performed By: #### 2 [id number] #### [facility] [address] [place] [address] Lymphocytes (Bld) [#/Vol] 2.3 E9/L Normal 1.0-4.0 [facility] Comment on above: Performed By: #### 2 [id number] #### [facility] [address] [place] [address] Lymphocytes/100 WBC (Bld) 22.6 % Normal 14.0-50.0 [facility] Comment on above: Performed By: #### 2 [id number] #### [facility] [address] [place] [address] MCH (RBC) [Entitic mass] 24.5 pg Low 27.0-34.0 [facility] Comment on above: Performed By: #### 2 [id number] #### [facility] [address] [place] [address] MCHC (RBC) [Mass/Vol] 33.0 g/dL Normal 31.4-36.0 [facility] Comment on above: Performed By: #### 2 [id number] #### [facility] [address] [place] [address] MCV (RBC) [Entitic vol] 74.2 fL Low 80.0-100.0 [facility] Comment on above: Performed By: #### 2 [id number] #### [facility] [address] [place] [address] Microcytes Ql (Bld) PRESENT Invalid Interpretation Code [facility] Comment on above: Performed By: #### 2 [id number] #### [facility] [address] [place] [address] Monocytes (Bld) [#/Vol] 0.9 E9/L Normal 0.2-1.0 [facility] Comment on above: Performed By: #### 2 [id number] #### [facility] [address] [place] [address] Neutrophils (Bld) [#/Vol] 6.6 E9/L Normal 2.0-7.5 [facility] Comment on above: Performed By: #### 2 [id number] #### [facility] [address] [place] [address] Neutrophils/100 WBC (Bld) 63.4 % Normal 36.0-75.0 [facility] Comment on above: Performed By: #### 2 [id number] #### [facility] [address] [place] [address] Platelet 377.0 E9/L Normal 150.0-500. 0 [facility] Comment on above: Performed By: #### 2 [id number] #### [facility] [address] [place] [address] Platelet mean volume (Bld) [Entitic vol] 8.7 fL Normal 6.4-10.8 [facility] Comment on above: Performed By: #### 2 [id number] #### [facility] [address] [place] [address] RBC (Bld) [#/Vol] 3.6 E12/L Low 4.3-5.9 [facility] Comment on above: Performed By: #### 2 [id number] #### [facility] [address] [place] [address] RBC size Nom (Bld) SEE MORPHOLOGY Invalid Interpretation Code [facility] Comment on above: Performed By: #### 2 [id number] #### [facility] [address] [place] [address] WBC corrected for nucl RBC Auto (Bld) [#/Vol] 10.4 E9/L Normal 4.0-11.0 [facility] Comment on above: Performed By: #### 2 [id number] #### [facility] [address] [place] [address] Inpatient Clinical Summaryon 01-08-2024 Inpatient Clinical Summary Inpatient Clinical Summary [address] [address] Clinical Summary Person Information: Name: MYRA PICKARD SR Age: 58 Years : 1965 Sex: Male PCP: TERESA LYNCH DO Marital Status: Race: White Ethnicity: Non- or Language: Albanian Visit Id: Visit Reason: I70.261 Speciality: Acuity: Enc Type: Ambulatory/Same Day Surgery Med Service: Surgery Arrival: 01/08/2024 11:49:03 Discharge: Dispo Type: Address: [address] [place] [address] [address] [facility] [id number] Provider Notes: Diagnosis: Problems Active Gross hematuria [...] Follow up: With: Address: When: Mike Montes [address] [place], [place] [id number] Business (1) Comments: Call for followup appointment Type Location Start [place] [facility] Office Visit [facility] CAL BrowningAurelio 02/12/2024 1:15 PM 02/12/2024 1:30 PM Confirmed Patient Education Information: CV - Cardiovascular PCI Discharge Instructions (CUSTOM) Normal [facility] Inpatient Patient Summaryon 01-08-2024 Inpatient Patient Summary Inpatient Patient Summary [address] [address] Patient Discharge Instructions PERSON INFORMATION Name: MYRA PICKARD SR Date of : 1965 Current Date: 01/08/2024 16:24:43 PHYSICIANS Admitting Physician: Mike Montes MD Primary Care Physician: TERESA LYNCH DO PCP Comment: Discharge Diagnosis: Condition at Discharge: Improved MATTEO CHRISTIAN MYRA Daniel has been given the following list of [...] Follow up: With: Address: When: Mike Montes [address] [place] [address] Business (1) Comments: Call for followup appointment In the event that this physician does not participate in your insurance network, please consult with your insurance company to find a nearby participating provider. Type Location Start [facility] Office Visit [facility] EU Aurelio 02/12/2024 1:15 PM 02/12/2024 1:30 PM Confirmed [...] Capsules By (more content not included)... Normal [facility] Interdisciplinary Note - Ayo ortega 01-08-2024 Interdisciplinary Note - Nursing Interdisciplinary Note - Nursing 1199-Right foot dressing removed, noted moderate amount of [...] covered with cast padding and KATHERYN. Normal [facility] eGFRon 01-08-2024 eGFR 40 mL/min/1.73 m2 Low >=59 [facility] Comment on above: Order Comment: Order added by Discern Expert. Performed By: #### 1 [id number] #### [facility] [address] [place] [address] Cholesterol in LDL Calc [Mas s/Vol]on 12-31-2023 Cholesterol in LDL [Mass/Vol] 47.0 mg/dL [facility] Comment on above: <100 mg/dl [id number] 0-129 mg/dl NEAR OR ABOVE [id number] mg/dl BORDERLINE [id number] mg/dl HIGH>190 mg/dl VERY HIGH Cholesterol in VLDL Calc [Ma ss/Vol]on 12-31-2023 Cholesterol in VLDL [Mass/Vol] 54.0 mg/dL [facility] Erythrocyte distribution wid th Auto (RBC) [Ratio]on 12-31-2023 Erythrocyte distribution width (RBC) [Ratio] 15.9 % High 11.0-15.0 [facility] Estimated glomerular filtrat ion rate (GFR) non- Americanon 12-31-2023 GFR/1.73 sq M.predicted among non-blacks MDRD (S/P/Bld) [Vol rate/Area] 31 mL/min/{1.73_m2} Low >=60 [facility] Globulin Calc (S) [Mass/Vol] on 12-31-2023 Globulin (S) [Mass/Vol] 3.9 g/dL [facility] Glucose mean value [Mass/vol ume] in Blood Estimated from glycated hemoglobinon 12-31-2023 Average glucose Estimated from glycated hemoglobin (Bld) [Mass/Vol] 163 mg/dL [facility] Hematocrit Auto (Bld) [Volum e fraction]on 12-31-2023 Hematocrit (Bld) [Volume fraction] 25.6 % Low 42.0-54.0 [facility] Hemoglobin [Mass/volume] in Bloodon 12-31-2023 Hemoglobin (Bld) [Mass/Vol] 8.0 g/dL Low 14.0-18.0 [facility] Iron binding capacity [Mass/ volume] in Serum or Plasmaon 12-31-2023 Iron binding capacity [Mass/Vol] 286.0 ug/dL 250.0-450. 0 [facility] Iron saturation [Mass Fracti on] in Serum or Plasmaon 12-31-2023 Iron saturation [Mass fraction] 2.8 % [facility] Laboratory - Chemistry and C hemistry - challengeon 12-31-2023 Cobalamin (Vitamin B12) [Mass/Vol] 156.0 pg/mL Low 193.0-986. 0 [facility] Ferritin [Mass/Vol] 16.0 ng/mL Low 26.0-388.0 [facility] Iron [Mass/Vol] 8.0 ug/dL Low 65.0-175.0 [facility] Transferrin [Mass/Vol] 241 mg/dL 177-329 [facility] Comment on above: Performed at: [address] [id number] Director: Uriel Borrero PhD, Phone: [phone] Albumin [Mass/Vol] 2.4 g/dL Low 3.4-5.0 [facility] ALP [Catalytic activity/Vol] 172 U/L High 46-116 [facility] ALT [Catalytic activity/Vol] 21 U/L 16-63 [facility] AST [Catalytic activity/Vol] 8 U/L Low 15-37 [facility] Bilirubin [Mass/Vol] 0.2 mg/dL 0.2-1.0 [facility] Calcium [Mass/Vol] 8.4 mg/dL Low 8.5-10.1 [facility] Chloride [Moles/Vol] 98 mmol/L 98-107 [facility] Cholesterol [Mass/Vol] 127 mg/dL <=200 [facility] Cholesterol in HDL [Mass/Vol] 26 mg/dL Low 40-60 [facility] Comment on above: > or =60 mg/dl - LOW CARDIOVASCULAR RISK<40 mg/dl - HIGH CARDIOVASCULAR RISK CO2 [Moles/Vol] 30.5 mmol/L 21.0-32.0 [facility] Creatinine [Mass/Vol] 2.22 mg/dL High 0.70-1.30 [facility] GFR/1.73 sq M.predicted MDRD (S/P/Bld) [Vol rate/Area] 37 mL/min/{1.73_m2} Low >=60 [facility] Glucose [Mass/Vol] 348 mg/dL High 74-106 [facility] Potassium [Moles/Vol] 3.9 mmol/L 3.5-5.1 [facility] Protein [Mass/Vol] 6.3 g/dL Low 6.4-8.2 [facility] Sodium [Moles/Vol] 137 mmol/L 136-145 [facility] Triglyceride [Mass/Vol] 270 mg/dL High <=150 [facility] TSH Qn 3.218 m[IU]/L 0.358-3.74 0 [facility] Urea nitrogen [Mass/Vol] 21.0 mg/dL High 7.0-18.0 [facility] Urea nitrogen/Creatinine [Mass ratio] 9.5 mg/mg [facility] Laboratory - Hematology and Cell countson 12-31-2023 HbA1c (Bld) [Mass fraction] 7.3 % High 4.5-6.2 [facility] Comment on above: ADA RECOMMENDED LIMI T 4.0 - 6.0ADA THERAPEUTIC TARGET < 7.0ACTION SUGGESTED> 7.0 Leukocytes [#/volume] correc jorge for nucleated erythrocytes in Blood by Automated counon 12-31-2023 WBC corrected for nucl RBC Auto (Bld) [#/Vol] 8.1 10 3/uL 4.0-11.0 [facility] MCH Auto (RBC) [Entitic mass ]on 12-31-2023 MCH (RBC) [Entitic mass] 24.3 pg Low 25.9-34.0 [facility] MCHC Auto (RBC) [Mass/Vol]on 12-31-2023 MCHC (RBC) [Mass/Vol] 31.3 g/dL 29.9-35.2 [facility] MCV Auto (RBC) [Entitic vol] on 12-31-2023 MCV (RBC) [Entitic vol] 77.8 fL Low 80.0-94.0 [facility] No Panel Informationon 12-30 Folate 5.6 ng/mL >3.0 [facility] Comment on above: A serum folate vivian ntration of less than 3.1 ng/mL isconsidered to represent clinical deficiency.Performed at: [email or web address] [id number] Director: Uriel Borrero PhD, Phone: [phone] 5.6 ng/mL >3.0 [facility] 241 mg/dL 177-329 [facility] 156.0 pg/mL Low 193.0-986. 0 [facility] 16.0 ng/mL Low 26.0-388.0 [facility] 8.0 ug/dL Low 65.0-175.0 [facility] Troponin I High Sensitivity 5.8 pg/mL 4.0-76.1 [facility] Comment on above: CUT-OFF POINTS HAVE [...] DIAGNOSTIC AND CLINICAL INFORMATION. 5.8 pg/mL 4.0-76.1 [facility] 3.218 u[iU]/mL 0.358-3.74 0 [facility] 7.3 % High 4.5-6.2 [facility] 127 mg/dL <=200 [facility] 26 mg/dL Low 40-60 [facility] 2.4 g/dL Low 3.4-5.0 [facility] 172 U/L High 46-116 [facility] 270 mg/dL High <=150 [facility] 21 U/L 16-63 [facility] 8 U/L Low 15-37 [facility] 9.5 [facility] 21.0 mg/dL High 7.0-18.0 [facility] 8.4 mg/dL Low 8.5-10.1 [facility] 98 mmol/L 98-107 [facility] 30.5 mmol/L 21.0-32.0 [facility] 2.22 mg/dL High 0.70-1.30 [facility] 37 Low >=60 [facility] 348 mg/dL High 74-106 [facility] 3.9 mmol/L 3.5-5.1 [facility] 137 mmol/L 136-145 [facility] 0.2 mg/dL 0.2-1.0 [facility] 6.3 g/dL Low 6.4-8.2 [facility] Platelet mean volume Auto (B ld) [Entitic vol]on 12-31-2023 Platelet mean volume (Bld) [Entitic vol] 10.4 fL 9.5-13.5 [facility] Platelets Auto (Bld) [#/Vol] on 12-31-2023 Platelets (Bld) [#/Vol] 297 10 3/uL 150-450 [facility] RBC Auto (Bld) [#/Vol]on RBC (Bld) [#/Vol] 3.29 10 6/uL Low 4.70-6.10 [facility] Serum or plasma albumin/glob ulin mass ratioon 12-31-2023 Albumin/Globulin [Mass ratio] 0.6 {ratio} [facility] Serum or plasma anion gap de terminationon 12-31-2023 Anion gap [Moles/Vol] 12.4 mmol/L [facility] Serum or plasma total choles terol/high density lipoprotein (HDL) cholesterol mass stone 12-31-2023 Cholesterol.total/Chol esterol in HDL [Mass ratio] 4.9 {ratio} [facility] Comment on above: 3.3 - 4.4 LOW RISK4. 4 - 7.1 AVERAGE RISK7.1 - 11.0 MODERATE RISK>11.0 HIGH RISK Basophils Auto (Bld) [#/Vol] on 12-30-2023 Basophils (Bld) [#/Vol] 0.1 10 3/uL 0.0-0.1 [facility] Basophils/100 WBC Auto (Bld) on 12-30-2023 Basophils/100 WBC (Bld) 0.7 % 0.2-2.0 [facility] Eosinophils/100 WBC Auto (Bl d)on 12-30-2023 Eosinophils/100 WBC (Bld) 2.3 % 0.9-7.0 [facility] Erythrocyte distribution wid th Auto (RBC) [Ratio]on 12-30-2023 Erythrocyte distribution width (RBC) [Ratio] 15.9 % High 11.0-15.0 [facility] Estimated glomerular filtrat ion rate (GFR) non- Americanon 12-30-2023 GFR/1.73 sq M.predicted among non-blacks MDRD (S/P/Bld) [Vol rate/Area] 30 mL/min/{1.73_m2} Low >=60 [facility] Hematocrit Auto (Bld) [Volum e fraction]on 12-30-2023 Hematocrit (Bld) [Volume fraction] 27.1 % Low 42.0-54.0 [facility] Hemoglobin [Mass/volume] in Bloodon 12-30-2023 Hemoglobin (Bld) [Mass/Vol] 8.5 g/dL Low 14.0-18.0 [facility] Laboratory - Chemistry and C hemistry - challengeon 12-30-2023 Calcium [Mass/Vol] 9.2 mg/dL 8.5-10.1 [facility] Chloride [Moles/Vol] 95 mmol/L Low 98-107 [facility] CO2 [Moles/Vol] 27.2 mmol/L 21.0-32.0 [facility] Creatinine [Mass/Vol] 2.23 mg/dL High 0.70-1.30 [facility] GFR/1.73 sq M.predicted MDRD (S/P/Bld) [Vol rate/Area] 37 mL/min/{1.73_m2} Low >=60 [facility] Glucose [Mass/Vol] 193 mg/dL High 74-106 [facility] Potassium [Moles/Vol] 3.6 mmol/L 3.5-5.1 [facility] Sodium [Moles/Vol] 132 mmol/L Low 136-145 [facility] Urea nitrogen [Mass/Vol] 22.0 mg/dL High 7.0-18.0 [facility] Urea nitrogen/Creatinine [Mass ratio] 9.9 mg/mg [facility] - Hematology and Cell countson 12-30-2023 Immature granulocytes/100 WBC (Bld) 0.7 % High 0.0-0.5 [facility] Leukocytes [#/volume] correc jorge for nucleated erythrocytes in Blood by Automated counon 12-30-2023 WBC corrected for nucl RBC Auto (Bld) [#/Vol] 10.7 10 3/uL 4.0-11.0 [facility] Lymphocytes Auto (Bld) [#/Vo l]on 12-30-2023 Lymphocytes (Bld) [#/Vol] 2.3 10 3/uL 1.2-3.8 [facility] Lymphocytes/100 WBC Auto (Bl d)on 12-30-2023 Lymphocytes/100 WBC (Bld) 21.5 % 20.5-60.0 [facility] MCH Auto (RBC) [Entitic mass ]on 12-30-2023 MCH (RBC) [Entitic mass] 24.4 pg Low 25.9-34.0 [facility] MCHC Auto (RBC) [Mass/Vol]on 12-30-2023 MCHC (RBC) [Mass/Vol] 31.4 g/dL 29.9-35.2 [facility] MCV Auto (RBC) [Entitic vol] on 12-30-2023 MCV (RBC) [Entitic vol] 77.7 fL Low 80.0-94.0 [facility] Monocytes Auto (Bld) [#/Vol] on 12-30-2023 Monocytes (Bld) [#/Vol] 0.9 10 3/uL High 0.3-0.8 [facility] Monocytes/100 WBC Auto (Bld) on 12-30-2023 Monocytes/100 WBC (Bld) 8.4 % 1.7-12.0 [facility] Neutrophils Auto (Bld) [#/Vo l]on 12-30-2023 Neutrophils (Bld) [#/Vol] 7.1 10 3/uL High 1.4-6.5 [facility] Neutrophils/100 WBC Auto (Bl d)on 12-30-2023 Neutrophils/100 WBC (Bld) 66.4 % 43.0-75.0 [facility] No Panel Informationon 12-29 Troponin I High Sensitivity 5.7 pg/mL 4.0-76.1 [facility] Comment on above: CUT-OFF POINTS HAVE [...] DIAGNOSTIC AND CLINICAL INFORMATION. 5.7 pg/mL 4.0-76.1 [facility] Eosinophils # (Auto) 0.3 10 3/uL 0.0-0.7 [facility] Immature Granulocyte # (Auto) 0.07 10 3/uL High 0.00-0.03 [facility] 9.9 [facility] 22.0 mg/dL High 7.0-18.0 [facility] 0.3 10 3/uL 0.0-0.7 [facility] 9.2 mg/dL 8.5-10.1 [facility] 95 mmol/L Low 98-107 [facility] 27.2 mmol/L 21.0-32.0 [facility] 2.23 mg/dL High 0.70-1.30 [facility] 0.07 10 3/uL High 0.00-0.03 [facility] 37 Low >=60 [facility] 0.7 % High 0.0-0.5 [facility] 193 mg/dL High 74-106 [facility] 3.6 mmol/L 3.5-5.1 [facility] 132 mmol/L Low 136-145 [facility] Platelet mean volume Auto (B ld) [Entitic vol]on 12-30-2023 Platelet mean volume (Bld) [Entitic vol] 10.4 fL 9.5-13.5 [facility] Platelets Auto (Bld) [#/Vol] on 12-30-2023 Platelets (Bld) [#/Vol] 368 10 3/uL 150-450 [facility] RBC Auto (Bld) [#/Vol]on RBC (Bld) [#/Vol] 3.49 10 6/uL Low 4.70-6.10 [facility] Serum or plasma anion gap de terminationon 12-30-2023 Anion gap [Moles/Vol] 13.4 [facility] Basophils Auto (Bld) [#/Vol] on 12-23-2023 Basophils (Bld) [#/Vol] 0.1 10 3/uL 0.0-0.1 [facility] Basophils/100 WBC Auto (Bld) on 12-23-2023 Basophils/100 WBC (Bld) 0.4 % 0.2-2.0 [facility] Eosinophils/100 WBC Auto (Bl d)on 12-23-2023 Eosinophils/100 WBC (Bld) 1.0 % 0.9-7.0 [facility] Erythrocyte distribution wid th Auto (RBC) [Ratio]on 12-23-2023 Erythrocyte distribution width (RBC) [Ratio] 16.4 % High 11.0-15.0 [facility] Estimated glomerular filtrat ion rate (GFR) non- Americanon 12-23-2023 GFR/1.73 sq M.predicted among non-blacks MDRD (S/P/Bld) [Vol rate/Area] 37 mL/min/{1.73_m2} Low >=60 [facility] Globulin Calc (S) [Mass/Vol] on 12-23-2023 Globulin (S) [Mass/Vol] 3.3 g/dL [facility] Hematocrit Auto (Bld) [Volum e fraction]on 12-23-2023 Hematocrit (Bld) [Volume fraction] 23.6 % Low 42.0-54.0 [facility] Comment on above: RESULTS CALLED TO MARYSE BOUDREAUX RN Hemoglobin [Mass/volume] in Bloodon 12-23-2023 Hemoglobin (Bld) [Mass/Vol] 7.1 g/dL Low 14.0-18.0 [facility] - Chemistry and C hemistry - challengeon 12-23-2023 Albumin [Mass/Vol] 2.2 g/dL Low 3.4-5.0 [facility] ALP [Catalytic activity/Vol] 127 U/L High 46-116 [facility] ALT [Catalytic activity/Vol] 13 U/L Low 16-63 [facility] AST [Catalytic activity/Vol] 10 U/L Low 15-37 [facility] Bilirubin [Mass/Vol] 0.2 mg/dL 0.2-1.0 [facility] Calcium [Mass/Vol] 7.4 mg/dL Low 8.5-10.1 [facility] Chloride [Moles/Vol] 103 mmol/L 98-107 [facility] CO2 [Moles/Vol] 23.4 mmol/L 21.0-32.0 [facility] Creatinine [Mass/Vol] 1.88 mg/dL High 0.70-1.30 [facility] GFR/1.73 sq M.predicted MDRD (S/P/Bld) [Vol rate/Area] 45 mL/min/{1.73_m2} Low >=60 [facility] Glucose [Mass/Vol] 357 mg/dL High 74-106 [facility] Magnesium [Mass/Vol] 1.5 mg/dL Low 1.8-2.4 [facility] Potassium [Moles/Vol] 4.4 mmol/L 3.5-5.1 [facility] Protein [Mass/Vol] 5.5 g/dL Low 6.4-8.2 [facility] Sodium [Moles/Vol] 136 mmol/L 136-145 [facility] Urea nitrogen [Mass/Vol] 30.0 mg/dL High 7.0-18.0 [facility] Urea nitrogen/Creatinine [Mass ratio] 16.0 mg/mg [facility] - Hematology and Cell countson 12-23-2023 Immature granulocytes/100 WBC (Bld) 0.9 % High 0.0-0.5 [facility] Leukocytes [#/volume] correc jorge for nucleated erythrocytes in Blood by Automated counon 12-23-2023 WBC corrected for nucl RBC Auto (Bld) [#/Vol] 13.3 10 3/uL High 4.0-11.0 [facility] Lymphocytes Auto (Bld) [#/Vo l]on 12-23-2023 Lymphocytes (Bld) [#/Vol] 2.1 10 3/uL 1.2-3.8 [facility] Lymphocytes/100 WBC Auto (Bl d)on 12-23-2023 Lymphocytes/100 WBC (Bld) 15.7 % Low 20.5-60.0 [facility] MCH Auto (RBC) [Entitic mass ]on 12-23-2023 MCH (RBC) [Entitic mass] 25.0 pg Low 25.9-34.0 [facility] MCHC Auto (RBC) [Mass/Vol]on 12-23-2023 MCHC (RBC) [Mass/Vol] 30.1 g/dL 29.9-35.2 [facility] MCV Auto (RBC) [Entitic vol] on 12-23-2023 MCV (RBC) [Entitic vol] 83.1 fL 80.0-94.0 [facility] Monocytes Auto (Bld) [#/Vol] on 12-23-2023 Monocytes (Bld) [#/Vol] 0.6 10 3/uL 0.3-0.8 [facility] Monocytes/100 WBC Auto (Bld) on 12-23-2023 Monocytes/100 WBC (Bld) 4.7 % 1.7-12.0 [facility] Neutrophils Auto (Bld) [#/Vo l]on 12-23-2023 Neutrophils (Bld) [#/Vol] 10.3 10 3/uL High 1.4-6.5 [facility] Neutrophils/100 WBC Auto (Bl d)on 12-23-2023 Neutrophils/100 WBC (Bld) 77.3 % High 43.0-75.0 [facility] No Panel Informationon 12-22 Eosinophils # (Auto) 0.1 10 3/uL 0.0-0.7 [facility] Immature Granulocyte # (Auto) 0.12 10 3/uL High 0.00-0.03 [facility] 1.5 mg/dL Low 1.8-2.4 [facility] 2.2 g/dL Low 3.4-5.0 [facility] 0.1 10 3/uL 0.0-0.7 [facility] 127 U/L High 46-116 [facility] 13 U/L Low 16-63 [facility] 10 U/L Low 15-37 [facility] 16.0 [facility] 0.12 10 3/uL High 0.00-0.03 [facility] 30.0 mg/dL High 7.0-18.0 [facility] 0.9 % High 0.0-0.5 [facility] 7.4 mg/dL Low 8.5-10.1 [facility] 103 mmol/L 98-107 [facility] 23.4 mmol/L 21.0-32.0 [facility] 1.88 mg/dL High 0.70-1.30 [facility] 45 Low >=60 [facility] 357 mg/dL High 74-106 [facility] 4.4 mmol/L 3.5-5.1 [facility] 136 mmol/L 136-145 [facility] 0.2 mg/dL 0.2-1.0 [facility] 5.5 g/dL Low 6.4-8.2 [facility] Platelet mean volume Auto (B ld) [Entitic vol]on 12-23-2023 Platelet mean volume (Bld) [Entitic vol] 10.3 fL 9.5-13.5 [facility] Platelets Auto (Bld) [#/Vol] on 12-23-2023 Platelets (Bld) [#/Vol] 373 10 3/uL 150-450 [facility] RBC Auto (Bld) [#/Vol]on RBC (Bld) [#/Vol] 2.84 10 6/uL Low 4.70-6.10 [facility] Serum or plasma albumin/glob ulin mass ratioon 12-23-2023 Albumin/Globulin [Mass ratio] 0.7 {ratio} [facility] Serum or plasma anion gap de terminationon 12-23-2023 Anion gap [Moles/Vol] 14.0 mmol/L Fi [facility] Basophils Auto (Bld) [#/Vol] on 12-22-2023 Basophils (Bld) [#/Vol] 0.0 10 3/uL 0.0-0.1 [facility] Basophils/100 WBC Auto (Bld) on 12-22-2023 Basophils/100 WBC (Bld) 0.2 % 0.2-2.0 [facility] Eosinophils/100 WBC Auto (Bl d)on 12-22-2023 Eosinophils/100 WBC (Bld) 0.1 % Low 0.9-7.0 [facility] Erythrocyte distribution wid th Auto (RBC) [Ratio]on 12-22-2023 Erythrocyte distribution width (RBC) [Ratio] 16.5 % High 11.0-15.0 [facility] Estimated glomerular filtrat ion rate (GFR) non- Americanon 12-22-2023 GFR/1.73 sq M.predicted among non-blacks MDRD (S/P/Bld) [Vol rate/Area] 23 mL/min/{1.73_m2} Low >=60 [facility] Globulin Calc (S) [Mass/Vol] on 12-22-2023 Globulin (S) [Mass/Vol] 3.8 g/dL [facility] Hematocrit Auto (Bld) [Volum e fraction]on 12-22-2023 Hematocrit (Bld) [Volume fraction] 25.4 % Low 42.0-54.0 [facility] Hemoglobin [Mass/volume] in Bloodon 12-22-2023 Hemoglobin (Bld) [Mass/Vol] 7.6 g/dL Low 14.0-18.0 [facility] - Chemistry and C hemistry - challengeon 12-22-2023 Bilirubin Ql (U) Negative NEGATIVE [facility] Glucose (U) [Mass/Vol] mg/dL Abnormal NEGATIVE Fi [facility] Ketones Ql (U) Negative NEGATIVE [facility] pH (U) 6.5 [pH] 5.0-9.0 [facility] Specific gravity (U) [Rel density] <=1.005 Abnormal 1.005-1.02 5 [facility] Urobilinogen Qn (U) 0.2 {Brendan'U}/dL 0.2-1.0 [facility] Calcium [Mass/Vol] 7.2 mg/dL Low 8.5-10.1 [facility] Chloride [Moles/Vol] 95 mmol/L Low 98-107 [facility] CO2 [Moles/Vol] 21.7 mmol/L 21.0-32.0 [facility] Creatinine [Mass/Vol] 2.80 mg/dL High 0.70-1.30 [facility] GFR/1.73 sq M.predicted MDRD (S/P/Bld) [Vol rate/Area] 28 mL/min/{1.73_m2} Low >=60 [facility] Glucose [Mass/Vol] 683 mg/dL High 74-106 [facility] Comment on above: RESULTS CALLED TO Me Faraz Pickard RN Potassium [Moles/Vol] 4.8 mmol/L 3.5-5.1 [facility] Sodium [Moles/Vol] 129 mmol/L Low 136-145 [facility] Urea nitrogen [Mass/Vol] 27.0 mg/dL High 7.0-18.0 [facility] Urea nitrogen/Creatinine [Mass ratio] 9.6 mg/mg [facility] Albumin [Mass/Vol] 2.3 g/dL Low 3.4-5.0 [facility] ALP [Catalytic activity/Vol] 143 U/L High 46-116 [facility] ALT [Catalytic activity/Vol] 15 U/L Low 16-63 [facility] AST [Catalytic activity/Vol] 9 U/L Low 15-37 [facility] Bilirubin [Mass/Vol] 0.2 mg/dL 0.2-1.0 [facility] Magnesium [Mass/Vol] 0.9 mg/dL Low 1.8-2.4 [facility] Comment on above: RESULTS CALLED TO FATIMAH SANTIAGO RN Natriuretic peptide B (Bld) [Mass/Vol] 322.0 pg/mL <=900.0 [facility] Protein [Mass/Vol] 6.1 g/dL Low 6.4-8.2 [facility] Laboratory - Hematology and Cell countson 12-22-2023 Immature granulocytes/100 WBC (Bld) 0.9 % High 0.0-0.5 [facility] - Specimen inform ationon 12-22-2023 Appearance (U) CLEAR CLEAR [facility] Color (U) LT. YELLOW YELLOW [facility] - Urinalysison Leukocyte esterase Test strip Ql (U) Negative NEGATIVE [facility] Mucus Ql (Urine sed) NONE SEEN NONE SEEN [facility] Nitrite Ql (U) Negative NEGATIVE [facility] Protein Ql (U) Negative NEG/TRACE [facility] Leukocytes [#/volume] correc jorge for nucleated erythrocytes in Blood by Automated counon 12-22-2023 WBC corrected for nucl RBC Auto (Bld) [#/Vol] 11.7 10 3/uL High 4.0-11.0 [facility] Lymphocytes Auto (Bld) [#/Vo l]on 12-22-2023 Lymphocytes (Bld) [#/Vol] 0.9 10 3/uL Low 1.2-3.8 [facility] Lymphocytes/100 WBC Auto (Bl d)on 12-22-2023 Lymphocytes/100 WBC (Bld) 7.6 % Low 20.5-60.0 [facility] MCH Auto (RBC) [Entitic mass ]on 12-22-2023 MCH (RBC) [Entitic mass] 24.4 pg Low 25.9-34.0 [facility] MCHC Auto (RBC) [Mass/Vol]on 12-22-2023 MCHC (RBC) [Mass/Vol] 29.9 g/dL 29.9-35.2 [facility] MCV Auto (RBC) [Entitic vol] on 12-22-2023 MCV (RBC) [Entitic vol] 81.7 fL 80.0-94.0 [facility] Monocytes Auto (Bld) [#/Vol] on 12-22-2023 Monocytes (Bld) [#/Vol] 0.2 10 3/uL Low 0.3-0.8 [facility] Monocytes/100 WBC Auto (Bld) on 12-22-2023 Monocytes/100 WBC (Bld) 1.4 % Low 1.7-12.0 [facility] Neutrophils Auto (Bld) [#/Vo l]on 12-22-2023 Neutrophils (Bld) [#/Vol] 10.5 10 3/uL High 1.4-6.5 [facility] Neutrophils/100 WBC Auto (Bl d)on 12-22-2023 Neutrophils/100 WBC (Bld) 89.8 % High 43.0-75.0 [facility] No Panel Informationon 12-21 Urine Bacteria NONE SEEN #/HPF NONE SEEN [facility] Urine Occult Blood Negative NEGATIVE [facility] Urine Other Casts NONE SEEN #/LPF NONE SEEN [facility] Urine Other Crystals None Seen #/HPF None Seen [facility] Urine RBC 0-2 #/HPF 0-2 [facility] Urine Squamous Epithelial Cells NONE SEEN #/LPF NONE/RARE [facility] Urine WBC 0-2 #/HPF Abnormal NONE SEEN [facility] NONE SEEN #/LPF NONE/RARE [facility] None Seen #/HPF NONE SEEN [facility] Negative NEG/TRACE [facility] CLEAR CLEAR [facility] LT. YELLOW YELLOW [facility] >=1000 mg/dL Abnormal NEGATIVE [facility] NONE SEEN NONE SEEN [facility] 6.5 5.0-9.0 [facility] 0-2 #/HPF Abnormal NONE SEEN [facility] <=1.005 Abnormal 1.005-1.02 5 [facility] 0.2 EU/dL 0.2-1.0 [facility] 9.6 [facility] 27.0 mg/dL High 7.0-18.0 [facility] 7.2 mg/dL Low 8.5-10.1 [facility] 95 mmol/L Low 98-107 [facility] 21.7 mmol/L 21.0-32.0 [facility] 2.80 mg/dL High 0.70-1.30 [facility] 28 Low >=60 [facility] 683 mg/dL High 74-106 [facility] 4.8 mmol/L 3.5-5.1 [facility] 129 mmol/L Low 136-145 [facility] Eosinophils # (Auto) 0.0 10 3/uL 0.0-0.7 [facility] Immature Granulocyte # (Auto) 0.11 10 3/uL High 0.00-0.03 [facility] Phosphorus Level 2.7 mg/dL 2.6-4.7 [facility] 322.0 pg/mL <=900.0 [facility] 0.9 mg/dL Low 1.8-2.4 [facility] 2.7 mg/dL 2.6-4.7 [facility] 0.0 10 3/uL 0.0-0.7 [facility] 2.3 g/dL Low 3.4-5.0 [facility] 143 U/L High 46-116 [facility] 15 U/L Low 16-63 [facility] 9 U/L Low 15-37 [facility] 0.11 10 3/uL High 0.00-0.03 [facility] 0.9 % High 0.0-0.5 [facility] 0.2 mg/dL 0.2-1.0 [facility] 6.1 g/dL Low 6.4-8.2 [facility] Platelet mean volume Auto (B ld) [Entitic vol]on 12-22-2023 Platelet mean volume (Bld) [Entitic vol] 10.5 fL 9.5-13.5 [facility] Platelets Auto (Bld) [#/Vol] on 12-22-2023 Platelets (Bld) [#/Vol] 400 10 3/uL 150-450 [facility] RBC Auto (Bld) [#/Vol]on RBC (Bld) [#/Vol] 3.11 10 6/uL Low 4.70-6.10 [facility] Serum or plasma albumin/glob ulin mass ratioon 12-22-2023 Albumin/Globulin [Mass ratio] 0.6 {ratio} [facility] Serum or plasma anion gap de terminationon 12-22-2023 Anion gap [Moles/Vol] 17.1 mmol/L Fi [facility] Activated partial thrombopla stin time (aPTT) in platelet poor plasma by coagulation aon 12-21-2023 aPTT Coag (PPP) [Time] 26.6 s 22.3-36.2 Fi [facility] Basophils Auto (Bld) [#/Vol] on 12-21-2023 Basophils (Bld) [#/Vol] 0.1 10 3/uL 0.0-0.1 [facility] Basophils/100 WBC Auto (Bld) on 12-21-2023 Basophils/100 WBC (Bld) 0.8 % 0.2-2.0 [facility] Eosinophils/100 WBC Auto (Bl d)on 12-21-2023 Eosinophils/100 WBC (Bld) 4.2 % 0.9-7.0 [facility] Erythrocyte distribution wid th Auto (RBC) [Ratio]on 12-21-2023 Erythrocyte distribution width (RBC) [Ratio] 16.6 % High 11.0-15.0 [facility] Estimated glomerular filtrat ion rate (GFR) non- Americanon 12-21-2023 GFR/1.73 sq M.predicted among non-blacks MDRD (S/P/Bld) [Vol rate/Area] 23 mL/min/{1.73_m2} Low >=60 [facility] Globulin Calc (S) [Mass/Vol] on 12-21-2023 Globulin (S) [Mass/Vol] 4.0 g/dL [facility] Hematocrit Auto (Bld) [Volum e fraction]on 12-21-2023 Hematocrit (Bld) [Volume fraction] 28.2 % Low 42.0-54.0 [facility] Hemoglobin [Mass/volume] in Bloodon 12-21-2023 Hemoglobin (Bld) [Mass/Vol] 8.6 g/dL Low 14.0-18.0 [facility] INR in Platelet poor plasma by Coagulation assayon 12-21-2023 INR Coag (PPP) [Relative time] 1.05 {INR} [facility] Comment on above: DESIRED INR:2.0-3.0 CONDITIONS NOT LISTED BELOW2.5-3.5 FOR PROSTHETIC HEART VALVE REPLACEMENT2.5-3.5 [facility] Laboratory - Chemistry and C hemistry - challengeon 12-21-2023 Albumin [Mass/Vol] 2.8 g/dL Low 3.4-5.0 [facility] ALP [Catalytic activity/Vol] 132 U/L High 46-116 [facility] ALT [Catalytic activity/Vol] 13 U/L Low 16-63 [facility] AST [Catalytic activity/Vol] 10 U/L Low 15-37 [facility] Bilirubin [Mass/Vol] 0.3 mg/dL 0.2-1.0 [facility] Calcium [Mass/Vol] 7.8 mg/dL Low 8.5-10.1 [facility] Chloride [Moles/Vol] 99 mmol/L 98-107 [facility] CO2 [Moles/Vol] 29.9 mmol/L 21.0-32.0 [facility] Creatinine [Mass/Vol] 2.79 mg/dL High 0.70-1.30 [facility] GFR/1.73 sq M.predicted MDRD (S/P/Bld) [Vol rate/Area] 29 mL/min/{1.73_m2} Low >=60 [facility] Glucose [Mass/Vol] 56 mg/dL Low 74-106 [facility] Lactate [Moles/Vol] 1.6 mmol/L 0.4-2.0 [facility] Natriuretic peptide B (Bld) [Mass/Vol] 222.0 pg/mL <=900.0 [facility] Potassium [Moles/Vol] 3.3 mmol/L Low 3.5-5.1 [facility] Protein [Mass/Vol] 6.8 g/dL 6.4-8.2 [facility] Sodium [Moles/Vol] 138 mmol/L 136-145 [facility] Urea nitrogen [Mass/Vol] 29.0 mg/dL High 7.0-18.0 [facility] Urea nitrogen/Creatinine [Mass ratio] 10.4 mg/mg [facility] Laboratory - Hematology and Cell countson 12-21-2023 Immature granulocytes/100 WBC (Bld) 1.0 % High 0.0-0.5 [facility] Leukocytes [#/volume] correc jorge for nucleated erythrocytes in Blood by Automated counon 12-21-2023 WBC corrected for nucl RBC Auto (Bld) [#/Vol] 12.6 10 3/uL High 4.0-11.0 [facility] Lymphocytes Auto (Bld) [#/Vo l]on 12-21-2023 Lymphocytes (Bld) [#/Vol] 3.4 10 3/uL 1.2-3.8 [facility] Lymphocytes/100 WBC Auto (Bl d)on 12-21-2023 Lymphocytes/100 WBC (Bld) 26.6 % 20.5-60.0 [facility] MCH Auto (RBC) [Entitic mass ]on 12-21-2023 MCH (RBC) [Entitic mass] 24.7 pg Low 25.9-34.0 [facility] MCHC Auto (RBC) [Mass/Vol]on 12-21-2023 MCHC (RBC) [Mass/Vol] 30.5 g/dL 29.9-35.2 [facility] MCV Auto (RBC) [Entitic vol] on 12-21-2023 MCV (RBC) [Entitic vol] 81.0 fL 80.0-94.0 [facility] Monocytes Auto (Bld) [#/Vol] on 12-21-2023 Monocytes (Bld) [#/Vol] 0.6 10 3/uL 0.3-0.8 [facility] Monocytes/100 WBC Auto (Bld) on 12-21-2023 Monocytes/100 WBC (Bld) 4.9 % 1.7-12.0 [facility] Neutrophils Auto (Bld) [#/Vo l]on 12-21-2023 Neutrophils (Bld) [#/Vol] 7.9 10 3/uL High 1.4-6.5 [facility] Neutrophils/100 WBC Auto (Bl d)on 12-21-2023 Neutrophils/100 WBC (Bld) 62.5 % 43.0-75.0 [facility] No Panel Informationon 12-20 Troponin I High Sensitivity 5.1 pg/mL 4.0-76.1 [facility] Comment on above: CUT-OFF POINTS HAVE [...] DIAGNOSTIC AND CLINICAL INFORMATION. 5.1 pg/mL 4.0-76.1 [facility] Eosinophils # (Auto) 0.5 10 3/uL 0.0-0.7 [facility] Immature Granulocyte # (Auto) 0.13 10 3/uL High 0.00-0.03 [facility] Venous Blood Partial Pressure CO2 39.8 mm[Hg] Low 40.0-52.0 [facility] Venous Blood pH 7.448 High 7.330-7.43 0 [facility] 222.0 pg/mL <=900.0 [facility] 1.6 mmol/L 0.4-2.0 [facility] 39.8 mm[Hg] Low 40.0-52.0 [facility] 7.448 High 7.330-7.43 0 [facility] 2.8 g/dL Low 3.4-5.0 [facility] 0.5 10 3/uL 0.0-0.7 [facility] 132 U/L High 46-116 [facility] 13 U/L Low 16-63 [facility] 10 U/L Low 15-37 [facility] 10.4 [facility] 0.13 10 3/uL High 0.00-0.03 [facility] 29.0 mg/dL High 7.0-18.0 [facility] 1.0 % High 0.0-0.5 [facility] 7.8 mg/dL Low 8.5-10.1 [facility] 99 mmol/L 98-107 [facility] 29.9 mmol/L 21.0-32.0 [facility] 2.79 mg/dL High 0.70-1.30 [facility] 29 Low >=60 [facility] 56 mg/dL Low 74-106 [facility] 3.3 mmol/L Low 3.5-5.1 [facility] 138 mmol/L 136-145 [facility] 0.3 mg/dL 0.2-1.0 [facility] 6.8 g/dL 6.4-8.2 [facility] No Panel InformationOrdered By: Марина Flroes on 12-21-2023 Blood Culture 2 [facility] Blood Culture 1 [facility] Platelet mean volume Auto (B ld) [Entitic vol]on 12-21-2023 Platelet mean volume (Bld) [Entitic vol] 10.2 fL 9.5-13.5 [facility] Platelets Auto (Bld) [#/Vol] on 12-21-2023 Platelets (Bld) [#/Vol] 502 10 3/uL High 150-450 [facility] Prothrombin time (PT)on 12-03 PT Coag (PPP) [Time] 11.1 s 9.0-11.6 [facility] RBC Auto (Bld) [#/Vol]on RBC (Bld) [#/Vol] 3.48 10 6/uL Low 4.70-6.10 [facility] Serum or plasma albumin/glob ulin mass ratioon 12-21-2023 Albumin/Globulin [Mass ratio] 0.7 {ratio} [facility] Serum or plasma anion gap de terminationon 12-21-2023 Anion gap [Moles/Vol] 12.4 mmol/L [facility] Guy 12-15-2023 L Normal [facility] Basophils Auto (Bld) [#/Vol] on 12-10-2023 Basophils (Bld) [#/Vol] 0.1 10 3/uL 0.0-0.1 [facility] Basophils/100 WBC Auto (Bld) on 12-10-2023 Basophils/100 WBC (Bld) 0.9 % 0.2-2.0 [facility] Eosinophils/100 WBC Auto (Bl d)on 12-10-2023 Eosinophils/100 WBC (Bld) 2.6 % 0.9-7.0 [facility] Erythrocyte distribution wid th Auto (RBC) [Ratio]on 12-10-2023 Erythrocyte distribution width (RBC) [Ratio] 17.7 % High 11.0-15.0 [facility] Estimated glomerular filtrat ion rate (GFR) non- Americanon 12-10-2023 GFR/1.73 sq M.predicted among non-blacks MDRD (S/P/Bld) [Vol rate/Area] 38 mL/min/{1.73_m2} Low >=60 [facility] Globulin Calc (S) [Mass/Vol] on 12-10-2023 Globulin (S) [Mass/Vol] 3.9 g/dL [facility] Hematocrit Auto (Bld) [Volum e fraction]on 12-10-2023 Hematocrit (Bld) [Volume fraction] 34.2 % Low 42.0-54.0 [facility] Hemoglobin [Mass/volume] in Bloodon 12-10-2023 Hemoglobin (Bld) [Mass/Vol] 10.5 g/dL Low 14.0-18.0 [facility] Laboratory - Chemistry and C hemistry - challengeon 12-10-2023 Albumin [Mass/Vol] 2.8 g/dL Low 3.4-5.0 [facility] ALP [Catalytic activity/Vol] 119 U/L High 46-116 [facility] ALT [Catalytic activity/Vol] 11 U/L Low 16-63 [facility] AST [Catalytic activity/Vol] 10 U/L Low 15-37 [facility] Bilirubin [Mass/Vol] 0.4 mg/dL 0.2-1.0 [facility] Calcium [Mass/Vol] 8.4 mg/dL Low 8.5-10.1 [facility] Chloride [Moles/Vol] 101 mmol/L 98-107 [facility] CO2 [Moles/Vol] 27.0 mmol/L 21.0-32.0 [facility] Creatinine [Mass/Vol] 1.83 mg/dL High 0.70-1.30 [facility] GFR/1.73 sq M.predicted MDRD (S/P/Bld) [Vol rate/Area] 46 mL/min/{1.73_m2} Low >=60 [facility] Glucose [Mass/Vol] 113 mg/dL High 74-106 [facility] Potassium [Moles/Vol] 3.3 mmol/L Low 3.5-5.1 [facility] Protein [Mass/Vol] 6.7 g/dL 6.4-8.2 [facility] Sodium [Moles/Vol] 134 mmol/L Low 136-145 [facility] Urea nitrogen [Mass/Vol] 21.0 mg/dL High 7.0-18.0 [facility] Urea nitrogen/Creatinine [Mass ratio] 11.5 mg/mg [facility] Laboratory - Hematology and Cell countson 12-10-2023 Immature granulocytes/100 WBC (Bld) 0.3 % 0.0-0.5 [facility] Leukocytes [#/volume] correc jorge for nucleated erythrocytes in Blood by Automated counon 12-10-2023 WBC corrected for nucl RBC Auto (Bld) [#/Vol] 9.8 10 3/uL 4.0-11.0 [facility] Lymphocytes Auto (Bld) [#/Vo l]on 12-10-2023 Lymphocytes (Bld) [#/Vol] 1.5 10 3/uL 1.2-3.8 [facility] Lymphocytes/100 WBC Auto (Bl d)on 12-10-2023 Lymphocytes/100 WBC (Bld) 15.8 % Low 20.5-60.0 [facility] MCH Auto (RBC) [Entitic mass ]on 12-10-2023 MCH (RBC) [Entitic mass] 25.1 pg Low 25.9-34.0 [facility] MCHC Auto (RBC) [Mass/Vol]on 12-10-2023 MCHC (RBC) [Mass/Vol] 30.7 g/dL 29.9-35.2 [facility] MCV Auto (RBC) [Entitic vol] on 12-10-2023 MCV (RBC) [Entitic vol] 81.6 fL 80.0-94.0 [facility] Monocytes Auto (Bld) [#/Vol] on 12-10-2023 Monocytes (Bld) [#/Vol] 1.2 10 3/uL High 0.3-0.8 [facility] Monocytes/100 WBC Auto (Bld) on 12-10-2023 Monocytes/100 WBC (Bld) 11.9 % 1.7-12.0 [facility] Neutrophils Auto (Bld) [#/Vo l]on 12-10-2023 Neutrophils (Bld) [#/Vol] 6.7 10 3/uL High 1.4-6.5 [facility] Neutrophils/100 WBC Auto (Bl d)on 12-10-2023 Neutrophils/100 WBC (Bld) 68.5 % 43.0-75.0 [facility] No Panel Informationon 12-09 Eosinophils # (Auto) 0.3 10 3/uL 0.0-0.7 [facility] Immature Granulocyte # (Auto) 0.03 10 3/uL 0.00-0.03 [facility] 2.8 g/dL Low 3.4-5.0 [facility] 0.3 10 3/uL 0.0-0.7 [facility] 119 U/L High 46-116 [facility] 11 U/L Low 16-63 [facility] 10 U/L Low 15-37 [facility] 11.5 [facility] 0.03 10 3/uL 0.00-0.03 [facility] 21.0 mg/dL High 7.0-18.0 [facility] 0.3 % 0.0-0.5 [facility] 8.4 mg/dL Low 8.5-10.1 [facility] 101 mmol/L 98-107 [facility] 27.0 mmol/L 21.0-32.0 [facility] 1.83 mg/dL High 0.70-1.30 [facility] 46 Low >=60 [facility] 113 mg/dL High 74-106 [facility] 3.3 mmol/L Low 3.5-5.1 [facility] 134 mmol/L Low 136-145 [facility] 0.4 mg/dL 0.2-1.0 [facility] 6.7 g/dL 6.4-8.2 [facility] Platelet mean volume Auto (B ld) [Entitic vol]on 12-10-2023 Platelet mean volume (Bld) [Entitic vol] 10.2 fL 9.5-13.5 [facility] Platelets Auto (Bld) [#/Vol] on 12-10-2023 Platelets (Bld) [#/Vol] 240 10 3/uL 150-450 [facility] RBC Auto (Bld) [#/Vol]on RBC (Bld) [#/Vol] 4.19 10 6/uL Low 4.70-6.10 [facility] Serum or plasma albumin/glob ulin mass ratioon 12-10-2023 Albumin/Globulin [Mass ratio] 0.7 {ratio} [facility] Serum or plasma anion gap de terminationon 12-10-2023 Anion gap [Moles/Vol] 9.3 mmol/L [facility] Basophils Auto (Bld) [#/Vol] on 12-09-2023 Basophils (Bld) [#/Vol] 0.1 10 3/uL 0.0-0.1 [facility] Basophils/100 WBC Auto (Bld) on 12-09-2023 Basophils/100 WBC (Bld) 1.0 % 0.2-2.0 [facility] Eosinophils/100 WBC Auto (Bl d)on 12-09-2023 Eosinophils/100 WBC (Bld) 1.6 % 0.9-7.0 [facility] Erythrocyte distribution wid th Auto (RBC) [Ratio]on 12-09-2023 Erythrocyte distribution width (RBC) [Ratio] 17.7 % High 11.0-15.0 [facility] Estimated glomerular filtrat ion rate (GFR) non- Americanon 12-09-2023 GFR/1.73 sq M.predicted among non-blacks MDRD (S/P/Bld) [Vol rate/Area] 31 mL/min/{1.73_m2} Low >=60 [facility] Fibrin D-dimer [Presence] in Platelet poor plasma by Latex agglutinationon 12-09-2023 Fibrin D-dimer LA Ql (PPP) 3.76 mg/L FEU High <=0.59 [facility] Comment on above: RESULTS [...] on 12-09-2023 Globulin (S) [Mass/Vol] 4.6 g/dL [facility] Hematocrit Auto (Bld) [Volum e fraction]on 12-09-2023 Hematocrit (Bld) [Volume fraction] 39.2 % Low 42.0-54.0 [facility] Hemoglobin [Mass/volume] in Bloodon 12-09-2023 Hemoglobin (Bld) [Mass/Vol] 12.2 g/dL Low 14.0-18.0 [facility] Laboratory - Chemistry and C hemistry - challengeon 12-09-2023 Lactate [Moles/Vol] 2.9 mmol/L High 0.4-2.0 [facility] Comment on above: RESULTS CALLED TO RM SHARPE RN Bilirubin Ql (U) Negative NEGATIVE [facility] Glucose (U) [Mass/Vol] 500 mg/dL Abnormal [facility] Ketones Ql (U) Negative NEGATIVE [facility] pH (U) 6.5 [pH] 5.0-9.0 [facility] Specific gravity (U) [Rel density] 1.020 1.005-1.02 5 [facility] Urobilinogen Qn (U) 0.2 {Brendan'U}/dL 0.2-1.0 [facility] Albumin [Mass/Vol] 3.5 g/dL 3.4-5.0 [facility] ALP [Catalytic activity/Vol] 141 U/L High 46-116 [facility] ALT [Catalytic activity/Vol] 13 U/L Low 16-63 [facility] AST [Catalytic activity/Vol] 8 U/L Low 15-37 [facility] Bilirubin [Mass/Vol] 0.7 mg/dL 0.2-1.0 [facility] Calcium [Mass/Vol] 9.6 mg/dL 8.5-10.1 [facility] Chloride [Moles/Vol] 99 mmol/L 98-107 [facility] CO2 [Moles/Vol] 21.7 mmol/L 21.0-32.0 [facility] Creatinine [Mass/Vol] 2.17 mg/dL High 0.70-1.30 [facility] GFR/1.73 sq M.predicted MDRD (S/P/Bld) [Vol rate/Area] 38 mL/min/{1.73_m2} Low >=60 [facility] Glucose [Mass/Vol] 191 mg/dL High 74-106 [facility] Magnesium [Mass/Vol] 1.6 mg/dL Low 1.8-2.4 [facility] Potassium [Moles/Vol] 3.8 mmol/L 3.5-5.1 [facility] Protein [Mass/Vol] 8.1 g/dL 6.4-8.2 [facility] Sodium [Moles/Vol] 135 mmol/L Low 136-145 [facility] Urea nitrogen [Mass/Vol] 20.0 mg/dL High 7.0-18.0 [facility] Urea nitrogen/Creatinine [Mass ratio] 9.2 mg/mg [facility] Laboratory - Hematology and Cell countson 12-09-2023 Immature granulocytes/100 WBC (Bld) 0.3 % 0.0-0.5 [facility] Laboratory - Microbiology an d Antimicrobial susceptibilityon 12-09-2023 SARS-CoV-2 (COVID-19) RNA NELLY+probe Ql (Unsp spec) Negative NEGATIVE [facility] Comment on above: This test has [...] inform ationon 12-09-2023 Appearance (U) CLEAR CLEAR [facility] Color (U) YELLOW YELLOW [facility] Laboratory - Urinalysison Leukocyte esterase Test strip Ql (U) Negative NEGATIVE [facility] Nitrite Ql (U) Negative NEGATIVE [facility] Protein Ql (U) Negative NEG/TRACE [facility] Leukocytes [#/volume] correc jorge for nucleated erythrocytes in Blood by Automated counon 12-09-2023 WBC corrected for nucl RBC Auto (Bld) [#/Vol] 9.3 10 3/uL 4.0-11.0 [facility] Lymphocytes Auto (Bld) [#/Vo l]on 12-09-2023 Lymphocytes (Bld) [#/Vol] 1.5 10 3/uL 1.2-3.8 [facility] Lymphocytes/100 WBC Auto (Bl d)on 12-09-2023 Lymphocytes/100 WBC (Bld) 15.7 % Low 20.5-60.0 [facility] MCH Auto (RBC) [Entitic mass ]on 12-09-2023 MCH (RBC) [Entitic mass] 25.6 pg Low 25.9-34.0 [facility] MCHC Auto (RBC) [Mass/Vol]on 12-09-2023 MCHC (RBC) [Mass/Vol] 31.1 g/dL 29.9-35.2 [facility] MCV Auto (RBC) [Entitic vol] on 12-09-2023 MCV (RBC) [Entitic vol] 82.4 fL 80.0-94.0 [facility] Monocytes Auto (Bld) [#/Vol] on 12-09-2023 Monocytes (Bld) [#/Vol] 0.9 10 3/uL High 0.3-0.8 [facility] Monocytes/100 WBC Auto (Bld) on 12-09-2023 Monocytes/100 WBC (Bld) 9.1 % 1.7-12.0 [facility] Neutrophils Auto (Bld) [#/Vo l]on 12-09-2023 Neutrophils (Bld) [#/Vol] 6.7 10 3/uL High 1.4-6.5 [facility] Neutrophils/100 WBC Auto (Bl d)on 12-09-2023 Neutrophils/100 WBC (Bld) 72.3 % 43.0-75.0 [facility] No Panel Informationon 12-08 2.9 mmol/L High 0.4-2.0 [facility] Urine Microscopic Review NO [facility] Urine Occult Blood Negative NEGATIVE [facility] Negative NEG/TRACE [facility] NO [facility] CLEAR CLEAR [facility] YELLOW YELLOW [facility] 500 mg/dL Abnormal NEGATIVE [facility] 6.5 5.0-9.0 [facility] 1.020 1.005-1.02 5 [facility] 0.2 EU/dL 0.2-1.0 [facility] Eosinophils # (Auto) 0.2 10 3/uL 0.0-0.7 [facility] Immature Granulocyte # (Auto) 0.03 10 3/uL 0.00-0.03 [facility] Troponin I High Sensitivity 8.7 pg/mL 4.0-76.1 [facility] Comment on above: CUT-OFF POINTS HAVE [...] DIAGNOSTIC AND CLINICAL INFORMATION. 8.7 pg/mL 4.0-76.1 [facility] 1.6 mg/dL Low 1.8-2.4 [facility] 3.5 g/dL 3.4-5.0 [facility] 0.2 10 3/uL 0.0-0.7 [facility] 141 U/L High 46-116 [facility] 13 U/L Low 16-63 [facility] 8 U/L Low 15-37 [facility] 9.2 [facility] 0.03 10 3/uL 0.00-0.03 [facility] 20.0 mg/dL High 7.0-18.0 [facility] 0.3 % 0.0-0.5 [facility] 9.6 mg/dL 8.5-10.1 [facility] 99 mmol/L 98-107 [facility] 21.7 mmol/L 21.0-32.0 [facility] 2.17 mg/dL High 0.70-1.30 [facility] 38 Low >=60 [facility] 191 mg/dL High 74-106 [facility] 3.8 mmol/L 3.5-5.1 [facility] 135 mmol/L Low 136-145 [facility] 0.7 mg/dL 0.2-1.0 [facility] 8.1 g/dL 6.4-8.2 [facility] Platelet mean volume Auto (B ld) [Entitic vol]on 12-09-2023 Platelet mean volume (Bld) [Entitic vol] 10.7 fL 9.5-13.5 [facility] Platelets Auto (Bld) [#/Vol] on 12-09-2023 Platelets (Bld) [#/Vol] 294 10 3/uL 150-450 [facility] RBC Auto (Bld) [#/Vol]on RBC (Bld) [#/Vol] 4.76 10 6/uL 4.70-6.10 [facility] Serum or plasma albumin/glob ulin mass ratioon 12-09-2023 Albumin/Globulin [Mass ratio] 0.8 {ratio} [facility] Serum or plasma anion gap de terminationon 12-09-2023 Anion gap [Moles/Vol] 18.1 mmol/L [facility] Outside Operativeon 11-28-19 24 Outside Operative [id number]#1.00TIFF Normal [facility] Physician Orderon 11-28-2023 Physician Order [id number]#1.00TIFF Normal [facility] Basophils Auto (Bld) [#/Vol] on 11-26-2023 Basophils (Bld) [#/Vol] 0.1 10 3/uL 0.0-0.1 [facility] Basophils/100 WBC Auto (Bld) on 11-26-2023 Basophils/100 WBC (Bld) 1.1 % 0.2-2.0 [facility] Eosinophils/100 WBC Auto (Bl d)on 11-26-2023 Eosinophils/100 WBC (Bld) 3.5 % 0.9-7.0 [facility] Erythrocyte distribution wid th Auto (RBC) [Ratio]on 11-26-2023 Erythrocyte distribution width (RBC) [Ratio] 20.0 % High 11.0-15.0 [facility] Estimated glomerular filtrat ion rate (GFR) non- Americanon 11-26-2023 GFR/1.73 sq M.predicted among non-blacks MDRD (S/P/Bld) [Vol rate/Area] 41 mL/min/{1.73_m2} Low >=60 [facility] Globulin Calc (S) [Mass/Vol] on 11-26-2023 Globulin (S) [Mass/Vol] 4.2 g/dL [facility] Hematocrit Auto (Bld) [Volum e fraction]on 11-26-2023 Hematocrit (Bld) [Volume fraction] 33.1 % Low 42.0-54.0 [facility] Hemoglobin [Mass/volume] in Bloodon 11-26-2023 Hemoglobin (Bld) [Mass/Vol] 9.8 g/dL Low 14.0-18.0 [facility] Laboratory - Chemistry and C hemistry - challengeon 11-26-2023 Albumin [Mass/Vol] 3.2 g/dL Low 3.4-5.0 [facility] ALP [Catalytic activity/Vol] 143 U/L High 46-116 [facility] ALT [Catalytic activity/Vol] 16 U/L 16-63 [facility] AST [Catalytic activity/Vol] 14 U/L Low 15-37 [facility] Bilirubin [Mass/Vol] 0.5 mg/dL 0.2-1.0 [facility] Calcium [Mass/Vol] 9.1 mg/dL 8.5-10.1 [facility] Chloride [Moles/Vol] 101 mmol/L 98-107 [facility] CO2 [Moles/Vol] 24.2 mmol/L 21.0-32.0 [facility] Creatinine [Mass/Vol] 1.72 mg/dL High 0.70-1.30 [facility] GFR/1.73 sq M.predicted MDRD (S/P/Bld) [Vol rate/Area] 50 mL/min/{1.73_m2} Low >=60 [facility] Glucose [Mass/Vol] 132 mg/dL High 74-106 [facility] Lactate [Moles/Vol] 3.6 mmol/L High 0.4-2.0 [facility] Comment on above: RESULTS CALLED TO DR CROOK/YASMIN Potassium [Moles/Vol] 3.7 mmol/L 3.5-5.1 [facility] Protein [Mass/Vol] 7.4 g/dL 6.4-8.2 [facility] Sodium [Moles/Vol] 138 mmol/L 136-145 [facility] Urea nitrogen [Mass/Vol] 26.0 mg/dL High 7.0-18.0 [facility] Urea nitrogen/Creatinine [Mass ratio] 15.1 mg/mg [facility] Laboratory - Hematology and Cell countson 11-26-2023 ESR (Bld) [Velocity] 96 mm/h High <=20 [facility] Immature granulocytes/100 WBC (Bld) 0.4 % 0.0-0.5 [facility] Leukocytes [#/volume] correc jorge for nucleated erythrocytes in Blood by Automated counon 11-26-2023 WBC corrected for nucl RBC Auto (Bld) [#/Vol] 9.1 10 3/uL 4.0-11.0 [facility] Lymphocytes Auto (Bld) [#/Vo l]on 11-26-2023 Lymphocytes (Bld) [#/Vol] 2.1 10 3/uL 1.2-3.8 [facility] Lymphocytes/100 WBC Auto (Bl d)on 11-26-2023 Lymphocytes/100 WBC (Bld) 23.4 % 20.5-60.0 [facility] MCH Auto (RBC) [Entitic mass ]on 11-26-2023 MCH (RBC) [Entitic mass] 24.8 pg Low 25.9-34.0 [facility] MCHC Auto (RBC) [Mass/Vol]on 11-26-2023 MCHC (RBC) [Mass/Vol] 29.6 g/dL Low 29.9-35.2 [facility] MCV Auto (RBC) [Entitic vol] on 11-26-2023 MCV (RBC) [Entitic vol] 83.8 fL 80.0-94.0 [facility] Monocytes Auto (Bld) [#/Vol] on 11-26-2023 Monocytes (Bld) [#/Vol] 0.8 10 3/uL 0.3-0.8 [facility] Monocytes/100 WBC Auto (Bld) on 11-26-2023 Monocytes/100 WBC (Bld) 8.5 % 1.7-12.0 [facility] Neutrophils Auto (Bld) [#/Vo l]on 11-26-2023 Neutrophils (Bld) [#/Vol] 5.7 10 3/uL 1.4-6.5 [facility] Neutrophils/100 WBC Auto (Bl d)on 11-26-2023 Neutrophils/100 WBC (Bld) 63.1 % 43.0-75.0 [facility] No Panel InformationOrdered By: HERNAN CROOK on 11-26-2023 Blood Culture 2 [facility] Blood Culture 1 [facility] No Panel Informationon 11-25 C-Reactive Protein, Quantitative <0.50 mg/dL <=0.50 [facility] Eosinophils # (Auto) 0.3 10 3/uL 0.0-0.7 [facility] Immature Granulocyte # (Auto) 0.04 10 3/uL High 0.00-0.03 [facility] Platelet mean volume Auto (B ld) [Entitic vol]on 11-26-2023 Platelet mean volume (Bld) [Entitic vol] 10.4 fL 9.5-13.5 [facility] Platelets Auto (Bld) [#/Vol] on 11-26-2023 Platelets (Bld) [#/Vol] 371 10 3/uL 150-450 [facility] RBC Auto (Bld) [#/Vol]on RBC (Bld) [#/Vol] 3.95 10 6/uL Low 4.70-6.10 [facility] Serum or plasma albumin/glob ulin mass ratioon 11-26-2023 Albumin/Globulin [Mass ratio] 0.8 {ratio} [facility] Serum or plasma anion gap de terminationon 11-26-2023 Anion gap [Moles/Vol] 16.5 mmol/L [facility] Progress Note-Physicianon Progress Note-Physician [id number]#1.00TIFF Normal [facility] Basophils Auto (Bld) [#/Vol] on 11-15-2023 Basophils (Bld) [#/Vol] 0.1 10 3/uL 0.0-0.1 [facility] Basophils/100 WBC Auto (Bld) on 11-15-2023 Basophils/100 WBC (Bld) 0.8 % 0.2-2.0 [facility] Eosinophils/100 WBC Auto (Bl d)on 11-15-2023 Eosinophils/100 WBC (Bld) 5.9 % 0.9-7.0 [facility] Erythrocyte distribution wid th Auto (RBC) [Ratio]on 11-15-2023 Erythrocyte distribution width (RBC) [Ratio] 20.6 % High 11.0-15.0 [facility] Estimated glomerular filtrat ion rate (GFR) non- Americanon 11-15-2023 GFR/1.73 sq M.predicted among non-blacks MDRD (S/P/Bld) [Vol rate/Area] 44 mL/min/{1.73_m2} Low >=60 [facility] Globulin Calc (S) [Mass/Vol] on 11-15-2023 Globulin (S) [Mass/Vol] 4.7 g/dL [facility] Hematocrit Auto (Bld) [Volum e fraction]on 11-15-2023 Hematocrit (Bld) [Volume fraction] 27.6 % Low 42.0-54.0 [facility] Hemoglobin [Mass/volume] in Bloodon 11-15-2023 Hemoglobin (Bld) [Mass/Vol] 8.5 g/dL Low 14.0-18.0 [facility] Laboratory - Chemistry and C hemistry - challengeon 11-15-2023 Albumin [Mass/Vol] 2.4 g/dL Low 3.4-5.0 [facility] ALP [Catalytic activity/Vol] 194 U/L High 46-116 [facility] ALT [Catalytic activity/Vol] 22 U/L 16-63 [facility] AST [Catalytic activity/Vol] 25 U/L 15-37 [facility] Bilirubin [Mass/Vol] 0.9 mg/dL 0.2-1.0 [facility] Calcium [Mass/Vol] 8.9 mg/dL 8.5-10.1 [facility] Chloride [Moles/Vol] 97 mmol/L Low 98-107 [facility] CO2 [Moles/Vol] 26.6 mmol/L 21.0-32.0 [facility] Creatinine [Mass/Vol] 1.63 mg/dL High 0.70-1.30 [facility] GFR/1.73 sq M.predicted MDRD (S/P/Bld) [Vol rate/Area] 53 mL/min/{1.73_m2} Low >=60 [facility] Glucose [Mass/Vol] 226 mg/dL High 74-106 [facility] Lactate [Moles/Vol] 1.4 mmol/L 0.4-2.0 [facility] Potassium [Moles/Vol] 4.1 mmol/L 3.5-5.1 [facility] Protein [Mass/Vol] 7.1 g/dL 6.4-8.2 [facility] Sodium [Moles/Vol] 135 mmol/L Low 136-145 [facility] Urea nitrogen [Mass/Vol] 24.0 mg/dL High 7.0-18.0 [facility] Urea nitrogen/Creatinine [Mass ratio] 14.7 mg/mg [facility] Laboratory - Hematology and Cell countson 11-15-2023 Immature granulocytes/100 WBC (Bld) 0.6 % High 0.0-0.5 [facility] Leukocytes [#/volume] correc jorge for nucleated erythrocytes in Blood by Automated counon 11-15-2023 WBC corrected for nucl RBC Auto (Bld) [#/Vol] 9.5 10 3/uL 4.0-11.0 [facility] Lymphocytes Auto (Bld) [#/Vo l]on 11-15-2023 Lymphocytes (Bld) [#/Vol] 1.3 10 3/uL 1.2-3.8 [facility] Lymphocytes/100 WBC Auto (Bl d)on 11-15-2023 Lymphocytes/100 WBC (Bld) 14.1 % Low 20.5-60.0 [facility] MCH Auto (RBC) [Entitic mass ]on 11-15-2023 MCH (RBC) [Entitic mass] 24.9 pg Low 25.9-34.0 [facility] MCHC Auto (RBC) [Mass/Vol]on 11-15-2023 MCHC (RBC) [Mass/Vol] 30.8 g/dL 29.9-35.2 [facility] MCV Auto (RBC) [Entitic vol] on 11-15-2023 MCV (RBC) [Entitic vol] 80.9 fL 80.0-94.0 [facility] Monocytes Auto (Bld) [#/Vol] on 11-15-2023 Monocytes (Bld) [#/Vol] 1.1 10 3/uL High 0.3-0.8 [facility] Monocytes/100 WBC Auto (Bld) on 11-15-2023 Monocytes/100 WBC (Bld) 11.9 % 1.7-12.0 [facility] Neutrophils Auto (Bld) [#/Vo l]on 11-15-2023 Neutrophils (Bld) [#/Vol] 6.4 10 3/uL 1.4-6.5 [facility] Neutrophils/100 WBC Auto (Bl d)on 11-15-2023 Neutrophils/100 WBC (Bld) 66.7 % 43.0-75.0 [facility] No Panel InformationOrdered By: Fely Marker on 11-15-2023 Blood Culture 2 [facility] Blood Culture 1 [facility] No Panel Informationon 11-14 Eosinophils # (Auto) 0.6 10 3/uL 0.0-0.7 [facility] Immature Granulocyte # (Auto) 0.06 10 3/uL High 0.00-0.03 [facility] Platelet mean volume Auto (B ld) [Entitic vol]on 11-15-2023 Platelet mean volume (Bld) [Entitic vol] 10.8 fL 9.5-13.5 [facility] Platelets Auto (Bld) [#/Vol] on 11-15-2023 Platelets (Bld) [#/Vol] 338 10 3/uL 150-450 [facility] RBC Auto (Bld) [#/Vol]on RBC (Bld) [#/Vol] 3.41 10 6/uL Low 4.70-6.10 [facility] Serum or plasma albumin/glob ulin mass ratioon 11-15-2023 Albumin/Globulin [Mass ratio] 0.5 {ratio} [facility] Serum or plasma anion gap de terminationon 11-15-2023 Anion gap [Moles/Vol] 15.5 mmol/L [facility] BASIC METABOLIC PANLon 11-13 Anion gap [Moles/Vol] 10 mmol/L Normal 5-[address] [facility] Comment on above: Performed By: #### C ALLY, KENDALL, , 2776-06 ####[facility] ([id number])[address] [address] [place] [address] Calcium [Mass/Vol] 8.8 mg/dL Normal 8.5-10.5 [facility] Comment on above: Performed By: #### C ALLY, BMP, , 2776-06 ####[facility] ([id number])[address] [address], [place] [address] Chloride [Moles/Vol] 99 mmol/L Normal 98-109 [facility] Comment on above: Performed By: #### Snehal CANALES, KENDALL, , 2776-06 ####[facility] ([id number])[address] [address], [place] [address] CO2 [Moles/Vol] 26 mmol/L Normal 22-32 Comment on above: Performed By: #### Snehal CANALES, KENDALL, , 2776-06 ####[facility] ([id number])[address] [address] [place] [place] [place] [address] Creatinine [Mass/Vol] 1.61 mg/dL High 0.60-1.30 [facility] Comment on above: Result Comment: METH OD TRACEABLE TO IDMS STANDARD Performed By: #### Snehal CANALES, BMP, , 2776-06 ####[facility] ([id number])[address] [place] [place] [place] [address] GFR/1.73 sq M.predicted among non-blacks MDRD (S/P/Bld) [Vol rate/Area] 49 mL/min/{1.73_m2} Low >59 Comment on above: Result Comment: Reported eGFR is based on the CKD-EPI 2020 equation that does not use a race coefficient. Performed By: #### C BC, BMP, , 2776-06 ####[facility] ([id number])[address], [place] [address] Glucose [Mass/Vol] 184 mg/dL High 65-99 [facility] Comment on above: Performed By: #### C KENDALL CANALES, , 2776-06 ####[facility] ([id number])[address], [place] [address] Potassium [Moles/Vol] 4.0 mmol/L Normal 3.5-5.0 [facility] Comment on above: Performed By: #### C KENDALL CANALES, , 2776-06 ####[facility] ([id number])[address], [address], [place] [address] Sodium [Moles/Vol] 135 mmol/L Normal 134-146 [facility] Comment on above: Performed By: #### KENDALL AHUJA, , 2776-06 ####[facility] ([id number])[address], [address], [place] [address] Urea nitrogen [Mass/Vol] 23 mg/dL Normal 5-23 Comment on above: Performed By: #### C KENDALL CANALES, , 2776-06 ####[facility] ([id number])[address], [address] [place] [address] COMPLETE BLOOD COUNTon 11-13 Erythrocyte distribution width (RBC) [Ratio] 22.8 % High 11.5-15.0 Comment on above: Performed By: #### C KENDALL CANALES, , 2776-06 ####[facility] ([id number])[address], [address], [place] [address] Hematocrit (Bld) [Volume fraction] 25.1 % Low 39-49 Comment on above: Performed By: #### C KENDALL CANALES, , 2776-06 ####[facility] ([id number])[address], [address] [place] [address] Hemoglobin (Bld) [Mass/Vol] 8.1 g/dL Low 13.0-17.0 Comment on above: Performed By: #### C ALLY, [facility], , 2776-06 ####[facility] ([id number])[address], [address] [place] [address] MCH (RBC) [Entitic mass] 25.1 pg Low 27-34 Comment on above: Performed By: #### Snehal CANALES, [facility], , 2776-06 ####[facility] ([id number])[address] [address] [place] [place] [address] MCHC (RBC) [Mass/Vol] 32.4 g/dL Normal 32-36 [facility] Comment on above: Performed By: #### Snehal CANALES, [facility], , 2776-06 ####[facility] ([id number])[address] [address] [place] [place] [address] MCV (RBC) [Entitic vol] 77 fL Low 80-100 Comment on above: Performed By: #### Snehal CANALES [facility], , 2776-06 ####[facility] ([id number])[address] [address] [place] [address] Platelet mean volume (Bld) [Entitic vol] 8.8 fL Normal 7-12 Comment on above: Performed By: #### Snehal CANALES, BMP, , 2776-06 ####[facility] ([id number])[address] [address] [place] [address] Platelets (Bld) [#/Vol] 232 10*3/uL Normal 150-450 Comment on above: Performed By: #### C ALLY, [facility], , 2776-06 ####[facility] ([id number])[address], [address], [place] [address] RBC COUNT 3.25 X10E12/L Low 4.10-5.70 Comment on above: Performed By: #### C ALLY, [facility], , 2776-06 ####[facility] ([id number])[address], [address] [place] [address] WBC (Bld) [#/Vol] 8.4 10*3/uL Normal 4.0-11.0 [facility] Comment on above: Performed By: #### C ALLY, [facility], , 2776-06 ####[facility] ([id number])[address], [address] [place] [address] Glucose Glucometer (BldC) [M ass/Vol]on 11-14-2023 Glucose [Mass/Vol] 173 mg/dL High 65-99 [facility] Glucose [Mass/Vol] 279 mg/dL High 65-99 [facility] Glucose [Mass/Vol] 249 mg/dL High 65-99 [facility] MAGNESIUMon 11-14-2023 Magnesium [Mass/Vol] 2.1 mg/dL Normal 1.8-2.6 [facility] Comment on above: Performed By: #### 1 9123-9 ####[facility] ([id number])[address], [place] [address] Magnesium [Mass/Vol] mg/dL Critically low 1.8-2.6 Comment on above: Performed By: #### 1 9123-9 ####[facility] ([id number])[address], [address], [place] [address] Magnesium [Mass/Vol] 1.7 mg/dL Low 1.8-2.6 [facility] Comment on above: Performed By: #### C ALLY, BMP, , 2776-06 ####[facility] ([id number])[address], [address], [place] [address] PHOSPHORUSon 11-14-2023 Phosphate [Mass/Vol] 3.6 mg/dL Normal 2.4-4.9 [facility] Comment on above: Performed By: #### C ALLY, BMP, , 2776-06 ####[facility] ([id number])[address], [address], [place] [address] BASIC METABOLIC PANLon 11-12 Anion gap [Moles/Vol] 10 mmol/L Normal 5-15 [facility] Comment on above: Performed By: #### Snehal CANALES, BMP, , 2776-06 ####[facility] ([id number])[address], [address], [place] [address] Calcium [Mass/Vol] 8.9 mg/dL Normal 8.5-10.5 [facility] Comment on above: Performed By: #### Snehal CANALES, BMP, , 2776-06 ####[facility] ([id number])[address], [address], [place] [address] Chloride [Moles/Vol] 98 mmol/L Normal 98-109 [facility] Comment on above: Performed By: #### Snehal CANALES, BMP, , 2776-06 ####[facility] ([id number])[address], [address], [place] [address] CO2 [Moles/Vol] 27 mmol/L Normal 22-32 Comment on above: Performed By: #### Snehal CANALES, BMP, , 2776-06 ####[facility] ([id number])[address], [address], [place] [address] Creatinine [Mass/Vol] 1.47 mg/dL High 0.60-1.30 [facility] Comment on above: Result Comment: METH OD TRACEABLE TO IDMS STANDARD Performed By: #### C KENDALL CANALES, , 2776-06 ####[facility] ([id number])[address], [address], [place] [address] GFR/1.73 sq M.predicted among non-blacks MDRD (S/P/Bld) [Vol rate/Area] 55 mL/min/{1.73_m2} Low >59 Comment on above: Result Comment: Reported eGFR is based on the CKD-EPI 2020 equation that does not use a race coefficient. Performed By: #### C KENDALL CANALES, , 2776-06 ####[facility] ([id number])[address] [place] [address] Glucose [Mass/Vol] 164 mg/dL High 65-99 [facility] Comment on above: Performed By: #### C KENDALL CANALES, , 2776-06 ####[facility] ([id number])[address] [address], [place] [address] Potassium [Moles/Vol] 3.8 mmol/L Normal 3.5-5.0 [facility] Comment on above: Performed By: #### C KENDALL CANALES, , 2776-06 ####[facility] ([id number])[address] [address], [place] [address] Sodium [Moles/Vol] 135 mmol/L Normal 134-146 [facility] Comment on above: Performed By: #### C KENDALL CANALES, , 2776-06 ####[facility] ([id number])[address], [address], [place] [address] Urea nitrogen [Mass/Vol] 26 mg/dL High 5-23 Comment on above: Performed By: #### C ALLY [facility], , 2776-06 ####[facility] ([id number])[address] [address], [place] [address] COMPLETE BLOOD COUNTon 11-12 Erythrocyte distribution width (RBC) [Ratio] 23.2 % High 11.5-15.0 Comment on above: Performed By: #### C ALLY, [facility], , 2776-06 ####[facility] ([id number])[address] [address] Hematocrit (Bld) [Volume fraction] 24.7 % Low 39-49 Comment on above: Performed By: #### C ALLY [facility], , 2776-06 ####[facility] ([id number])[address] [address] [place] [address] Hemoglobin (Bld) [Mass/Vol] 8.2 g/dL Low 13.0-17.0 Comment on above: Performed By: #### Snehal CANALES [facility], , 2776-06 ####[facility] ([id number])[address] [address] [place] [address] MCH (RBC) [Entitic mass] 25.7 pg Low 27-34 Comment on above: Performed By: #### Snehal CANALES [facility], , 2776-06 ####[facility] ([id number])[address] [place] [place] [address] MCHC (RBC) [Mass/Vol] 33.4 g/dL Normal 32-36 [facility] Comment on above: Performed By: #### C ALLY, [facility], , 2776-06 ####[facility] ([id number])[address] [place] [address] MCV (RBC) [Entitic vol] 77 fL Low 80-100 Comment on above: Performed By: #### KENDALL AHUJA, , 2776-06 ####[facility] ([id number])[address], [place] [address] Platelet mean volume (Bld) [Entitic vol] 8.8 fL Normal 7-12 Comment on above: Performed By: #### KENDALL AHUJA, , 2776-06 ####[facility] ([id number])[address], [place] [address] Platelets (Bld) [#/Vol] 207 10*3/uL Normal 150-450 Comment on above: Performed By: #### KENDALL AHUJA, , 2776-06 ####[facility] ([id number])[address], [place] [address] RBC COUNT 3.21 X10E12/L Low 4.10-5.70 Comment on above: Performed By: #### KENDALL AHUJA, , 2776-06 ####[facility] ([id number])[address], [address] [place] [address] WBC (Bld) [#/Vol] 8.1 10*3/uL Normal 4.0-11.0 [facility] Comment on above: Performed By: #### KENDALL AHUJA, , 2776-06 ####[facility] ([id number])[address], [place] [address] Glucose Glucometer (dC) [M ass/Vol]on 11-13-2023 Glucose [Mass/Vol] 230 mg/dL High 65-99 [facility] Glucose [Mass/Vol] 225 mg/dL High 65-99 [facility] Glucose [Mass/Vol] 331 mg/dL High 65-99 [facility] Glucose [Mass/Vol] 190 mg/dL High 65-99 [facility] MAGNESIUMon 11-13-2023 Magnesium [Mass/Vol] 2.1 mg/dL Normal 1.8-2.6 [facility] Comment on above: Performed By: #### Snehal CANALES BMP, [address]-5, 2777-1 ####[facility] ([id number])[address], [address], [place] [address] PHOSPHORUSon 11-13-2023 Phosphate [Mass/Vol] 3.8 mg/dL Normal 2.4-4.9 [facility] Comment on above: Performed By: #### KENDALL AHUJA, , 2777-1 ####[facility] ([id number])[address], [address], [place] [address] BASIC METABOLIC PANLon 11-11 Anion gap [Moles/Vol] 11 mmol/L Normal 5-15 [facility] Comment on above: Performed By: #### Snehal CANALES, BMP #### [facility] ([id number]) [address], [address] [place] [address] Calcium [Mass/Vol] 9.0 mg/dL Normal 8.5-10.5 [facility] Comment on above: Performed By: #### Snehal CANALES, BMP #### [facility] ([id number]) [address], [address] [place] [address] Chloride [Moles/Vol] 98 mmol/L Normal 98-109 [facility] Comment on above: Performed By: #### Snehal CANALES, BMP #### [facility] ([id number]) [address], [address] [place] [address] CO2 [Moles/Vol] 25 mmol/L Normal 22-32 Comment on above: Performed By: #### Snehal CANALES, BMP #### [facility] ([id number]) [address], [address] [place] [address] Creatinine [Mass/Vol] 1.40 mg/dL High 0.60-1.30 [facility] Comment on above: Result Comment: METH OD TRACEABLE TO IDMS STANDARD Performed By: #### Snehal CANALES, BMP #### [facility] ([id number]) [address] [address] [place] [address] GFR/1.73 sq M.predicted among non-blacks MDRD (S/P/Bld) [Vol rate/Area] 58 mL/min/{1.73_m2} Low >59 Comment on above: Result Comment: Reported eGFR is based on the CKD-EPI 2020 equation that does not use a race coefficient. Performed By: #### Snehal CANALES, BMP #### [facility] ([id number]) [address] [address] [place] [address] Glucose [Mass/Vol] 194 mg/dL High 65-99 [facility] Comment on above: Performed By: #### Snehal CANALES, BMP #### [facility] ([id number]) [address], [facility] [address] [place] [address] Potassium [Moles/Vol] 4.0 mmol/L Normal 3.5-5.0 [facility] Comment on above: Performed By: #### Snehal CANALES, BMP #### [facility] ([id number]) [address], [address] [place] [address] Sodium [Moles/Vol] 134 mmol/L Normal 134-146 [facility] Comment on above: Performed By: #### Snehal CANALES, BMP #### [facility] ([id number]) [address] [address] [place] [address] Urea nitrogen [Mass/Vol] 23 mg/dL Normal 5-23 Comment on above: Performed By: #### Snehal CANALES, BMP #### [facility] ([id number]) [address] [place] [address] COMPLETE BLOOD COUNTon 11-11 Erythrocyte distribution width (RBC) [Ratio] 24.1 % High 11.5-15.0 Comment on above: Performed By: #### C ALLY, BMP #### [facility] ([id number]) [address] [place] [address] Hematocrit (Bld) [Volume fraction] 25.8 % Low 39-49 Comment on above: Performed By: #### C ALLY, BMP #### [facility] ([id number]) [address] [place] [address] Hemoglobin (Bld) [Mass/Vol] 8.6 g/dL Low 13.0-17.0 Comment on above: Performed By: #### C ALLY, BMP #### [facility] ([id number]) [address], [address] [place] [address] MCH (RBC) [Entitic mass] 25.7 pg Low 27-34 Comment on above: Performed By: #### C ALLY, BMP #### [facility] ([id number]) [address], [address] [place] [address] MCHC (RBC) [Mass/Vol] 33.5 g/dL Normal 32-36 [facility] Comment on above: Performed By: #### C ALLY, BMP #### [facility] ([id number]) [address], [address] [place] [address] MCV (RBC) [Entitic vol] 77 fL Low 80-100 Comment on above: Performed By: #### C ALLY, BMP #### [facility] ([id number]) [address] [place] [address] Platelet mean volume (Bld) [Entitic vol] 9.2 fL Normal 7-12 Comment on above: Performed By: #### C ALLY, BMP #### [facility] ([id number]) [address] [place] [address] Platelets (Bld) [#/Vol] 185 10*3/uL Normal 150-450 Comment on above: Performed By: #### Snehal CANALES, BMP #### [facility] ([id number]) [address], [address] [place] [address] RBC COUNT 3.37 X10E12/L Low 4.10-5.70 Comment on above: Performed By: #### Snehal CANALES, BMP #### [facility] ([id number]) [address] [place] [address] WBC (Bld) [#/Vol] 10.0 10*3/uL Normal 4.0-11.0 [facility] Comment on above: Performed By: #### Snehal CANALES, BMP #### [facility] ([id number]) [address] [place] [address] Glucose Glucometer (dC) [M ass/Vol]on 11-12-2023 Glucose [Mass/Vol] 230 mg/dL High 65-99 [facility] Glucose [Mass/Vol] 280 mg/dL High 65-99 [facility] Glucose [Mass/Vol] 268 mg/dL High 65-99 [facility] Glucose [Mass/Vol] 220 mg/dL High 65-99 [facility] Glucose [Mass/Vol] 205 mg/dL High 65-99 [facility] MAGNESIUMon 11-12-2023 Magnesium [Mass/Vol] 1.8 mg/dL Normal 1.8-2.6 [facility] Comment on above: Performed By: #### Snehal CANALES, BMP #### [facility] ([id number]) [address] [place] [address] PHOSPHORUSon 11-12-2023 Phosphate [Mass/Vol] 3.8 mg/dL Normal 2.4-4.9 [facility] Comment on above: Performed By: #### Snehal CANALES, BMP #### [facility] ([id number]) [address], [address] [place] [address] BASIC METABOLIC PANLon 11-10 Anion gap [Moles/Vol] 8 mmol/L Normal 5-15 [facility] Comment on above: Performed By: #### C ALLY, BMP #### [facility] ([id number]) [address], [address] [place] [address] Calcium [Mass/Vol] 8.7 mg/dL Normal 8.5-10.5 [facility] Comment on above: Performed By: #### Snehal CANALES, BMP #### [facility] ([id number]) [address], [address] [place] [address] Chloride [Moles/Vol] 99 mmol/L Normal 98-109 [facility] Comment on above: Performed By: #### Snehal CANALES, BMP #### [facility] ([id number]) [address], [address] [place] [address] CO2 [Moles/Vol] 26 mmol/L Normal 22-32 Comment on above: Performed By: #### Snehal CANALES, BMP #### [facility] ([id number]) [address], [address] [place] [address] Creatinine [Mass/Vol] 1.45 mg/dL High 0.60-1.30 [facility] Comment on above: Result Comment: METH OD TRACEABLE TO IDMS STANDARD Performed By: #### Snehal CANALES, BMP #### [facility] ([id number]) [address], [address] [place] [address] GFR/1.73 sq M.predicted among non-blacks MDRD (S/P/Bld) [Vol rate/Area] 56 mL/min/{1.73_m2} Low >59 Comment on above: Result Comment: Reported eGFR is based on the CKD-EPI 2020 equation that does not use a race coefficient. Performed By: #### C ALLY, BMP #### [facility] ([id number]) [address] [place] [address] Glucose [Mass/Vol] 153 mg/dL High 65-99 [facility] Comment on above: Performed By: #### C ALLY, BMP #### [facility] ([id number]) [address], [address] [place] [address] Potassium [Moles/Vol] 3.9 mmol/L Normal 3.5-5.0 [facility] Comment on above: Performed By: #### C ALLY, BMP #### [facility] ([id number]) [address] [place] [address] Sodium [Moles/Vol] 133 mmol/L Low 134-146 [facility] Comment on above: Performed By: #### Snehal CANALES, BMP #### [facility] ([id number]) [address] [place] [address] Urea nitrogen [Mass/Vol] 27 mg/dL High 5-23 Comment on above: Performed By: #### C ALLY, BMP #### [facility] ([id number]) [address] [place] [address] COMPLETE BLOOD COUNTon 11-10 Erythrocyte distribution width (RBC) [Ratio] 24.2 % High 11.5-15.0 Comment on above: Performed By: #### C ALLY, BMP #### [facility] ([id number]) [address] [place] [address] Hematocrit (Bld) [Volume fraction] 25.1 % Low 39-49 Comment on above: Performed By: #### C ALLY, BMP #### [facility] ([id number]) [address] [place] [address] Hemoglobin (Bld) [Mass/Vol] 8.2 g/dL Low 13.0-17.0 Comment on above: Performed By: #### C ALLY, BMP #### [facility] ([id number]) [address] [place] [address] MCH (RBC) [Entitic mass] 25.5 pg Low 27-34 Comment on above: Performed By: #### C ALLY, BMP #### [facility] ([id number]) [address] [place] [address] MCHC (RBC) [Mass/Vol] 32.7 g/dL Normal 32-36 [facility] Comment on above: Performed By: #### C ALLY, BMP #### [facility] ([id number]) [address] [place] [address] MCV (RBC) [Entitic vol] 78 fL Low 80-100 Comment on above: Performed By: #### C ALLY, BMP #### [facility] ([id number]) [address] [place] [address] Platelet mean volume (Bld) [Entitic vol] 9.0 fL Normal 7-12 Comment on above: Performed By: #### C ALLY, BMP #### [facility] ([id number]) [address], [address] [place] [address] Platelets (Bld) [#/Vol] 152 10*3/uL Normal 150-450 Comment on above: Performed By: #### C ALLY, BMP #### [facility] ([id number]) [address], [address] [place] [address] RBC COUNT 3.22 X10E12/L Low 4.10-5.70 Comment on above: Performed By: #### Snehal CANALES, BMP #### [facility] ([id number]) [address], [address] [place] [address] WBC (Bld) [#/Vol] 9.8 10*3/uL Normal 4.0-11.0 [facility] Comment on above: Performed By: #### Snehal CANALES, BMP #### [facility] ([id number]) [address], [address] [place] [address] Glucose Glucometer (BldC) [M ass/Vol]on 11-11-2023 Glucose [Mass/Vol] 184 mg/dL High 65-99 [facility] Glucose [Mass/Vol] 179 mg/dL High 65-99 [facility] Glucose [Mass/Vol] 222 mg/dL High 65-99 [facility] Glucose [Mass/Vol] 303 mg/dL High 65-99 [facility] MAGNESIUMon 11-11-2023 Magnesium [Mass/Vol] 2.4 mg/dL Normal 1.8-2.6 [facility] Comment on above: Performed By: #### Snehal CANALES, BMP #### [facility] ([id number]) [address], [address] [place] [address] Magnesium [Mass/Vol] 1.9 mg/dL Normal 1.8-2.6 [facility] Comment on above: Performed By: #### Snehal CANALES, BMP #### [facility] ([id number]) [address], [address] [place] [address] PHOSPHORUSon 11-11-2023 Phosphate [Mass/Vol] 3.2 mg/dL Normal 2.4-4.9 [facility] Comment on above: Performed By: #### Snehal CANALES, BMP #### [facility] ([id number]) [address], [address] [place] [address] BASIC METABOLIC PANLon 11-09 Anion gap [Moles/Vol] 6 mmol/L Normal 5-15 [facility] Comment on above: Performed By: #### Snehal CANALES, BMP, , 2776-06 ####[facility] ([id number])[address], [address], [place] [address] Calcium [Mass/Vol] 8.5 mg/dL Normal 8.5-10.5 [facility] Comment on above: Performed By: #### Snehal CANALES, BMP, , 2776-06 ####[facility] ([id number])[address], [place] [address] Chloride [Moles/Vol] 102 mmol/L Normal 98-109 [facility] Comment on above: Performed By: #### Snehal CANALES, KENDALL, , 2776-06 ####[facility] ([id number])[address], [place] [address] CO2 [Moles/Vol] 26 mmol/L Normal 22-32 Comment on above: Performed By: #### Snehal CANALES, BMP, , 2776-06 ####[facility] ([id number])[address], [place] [address] Creatinine [Mass/Vol] 1.59 mg/dL High 0.60-1.30 [facility] Comment on above: Result Comment: METH OD TRACEABLE TO IDMS STANDARD Performed By: #### Snehal CANALES, BMP, , 2776-06 ####[facility] ([id number])[address] [address], [place] [address] GFR/1.73 sq M.predicted among non-blacks MDRD (S/P/Bld) [Vol rate/Area] 50 mL/min/{1.73_m2} Low >59 Comment on above: Result Comment: Reported eGFR is based on the CKD-EPI 2020 equation that does not use a race coefficient. Performed By: #### C ALLY, [facility], , 2776-06 ####[facility] ([id number])[address] [address] [address] Glucose [Mass/Vol] 145 mg/dL High 65-99 [facility] Comment on above: Performed By: #### C ALLY, [facility], , 2776-06 ####[facility] ([id number])[address] [address] [address] Potassium [Moles/Vol] 3.9 mmol/L Normal 3.5-5.0 [facility] Comment on above: Performed By: #### C ALLY, [facility], , 2776-06 ####[facility] ([id number])[address] [address], [place] [address] Sodium [Moles/Vol] 134 mmol/L Normal 134-146 [facility] Comment on above: Performed By: #### C ALLY, [facility], , 2776-06 ####[facility] ([id number])[address] [address], [place] [address] Urea nitrogen [Mass/Vol] 23 mg/dL Normal 5-23 Comment on above: Performed By: #### C ALLY, [facility], , 2776-06 ####[facility] ([id number])[address] [address] COMPLETE BLOOD COUNTon 11-09 Erythrocyte distribution width (RBC) [Ratio] 24.9 % High 11.5-15.0 Comment on above: Performed By: #### C ALLY, [facility], , 2776-06 ####[facility] ([id number])[address] [address] Hematocrit (Bld) [Volume fraction] 24.5 % Low 39-49 Comment on above: Performed By: #### C ALLY, [facility], , 2776-06 ####[facility] ([id number])[address], [place] [address] Hemoglobin (Bld) [Mass/Vol] 7.9 g/dL Low 13.0-17.0 Comment on above: Performed By: #### Snehal CANALES, [facility], , 2776-06 ####[facility] ([id number])[address], [address], [place] [address] MCH (RBC) [Entitic mass] 25.4 pg Low 27-34 Comment on above: Performed By: #### Snehal CANALES [facility], , 2776-06 ####[facility] ([id number])[address], [address], [place] [address] MCHC (RBC) [Mass/Vol] 32.4 g/dL Normal 32-36 [facility] Comment on above: Performed By: #### Snehal CANALES, [facility], , 2776-06 ####[facility] ([id number])[address], [address], [place] [address] MCV (RBC) [Entitic vol] 78 fL Low 80-100 Comment on above: Performed By: #### Snehal CANALES, [facility], , 2776-06 ####[facility] ([id number])[address], [address], [place] [address] Platelet mean volume (Bld) [Entitic vol] 9.1 fL Normal 7-12 Comment on above: Performed By: #### Snehal CANALES, BMP, , 2776-06 ####[facility] ([id number])[address], [address], [place] [address] Platelets (Bld) [#/Vol] 142 10*3/uL Low 150-450 Comment on above: Performed By: #### KENDALL AHUJA, , 2776-06 ####[facility] ([id number])[address], [address] [place] [address] RBC COUNT 3.14 X10E12/L Low 4.10-5.70 Comment on above: Performed By: #### KENDALL AHUJA, , 2776-06 ####[facility] ([id number])[address], [address] [address] WBC (Bld) [#/Vol] 9.7 10*3/uL Normal 4.0-11.0 [facility] Comment on above: Performed By: #### KENDALL AHUJA, , 2776-06 ####[facility] ([id number])[address], [address] [place] [address] Glucose Glucometer (BldC) [M ass/Vol]on 11-10-2023 Glucose [Mass/Vol] 168 mg/dL High 65-99 [facility] Glucose [Mass/Vol] 245 mg/dL High 65-99 [facility] Glucose [Mass/Vol] 155 mg/dL High 65-99 [facility] Glucose [Mass/Vol] 153 mg/dL High 65-99 [facility] MAGNESIUMon 11-10-2023 Magnesium [Mass/Vol] 2.2 mg/dL Normal 1.8-2.6 [facility] Comment on above: Performed By: #### KENDALL AHUJA #### [facility] ([id number]) [address], [address] [place] [address] Magnesium [Mass/Vol] 1.8 mg/dL Normal 1.8-2.6 [facility] Comment on above: Performed By: #### KENDALL AHUJA, , 2776-06 ####[facility] ([id number])[address], [address], [place] [address] PHOSPHORUSon 11-10-2023 Phosphate [Mass/Vol] 3.1 mg/dL Normal 2.4-4.9 [facility] Comment on above: Performed By: #### C BC, BMP, , 2776-06 ####[facility] ([id number])[address], [address], [place] [address] BASIC METABOLIC PANLon 11-08 Anion gap [Moles/Vol] 9 mmol/L Normal 5-15 [facility] Comment on above: Performed By: #### Snehal CANALES, 2639-3, BMP, 2156-, , 2776-06 ####[facility] ([id number])[address], [place] [address] Calcium [Mass/Vol] 8.4 mg/dL Low 8.5-10.5 [facility] Comment on above: Performed By: #### Snehal CANALES, 2639-3, BMP, 2156-, , 2776-06 ####[facility] ([id number])[address], [address], [place] [address] Chloride [Moles/Vol] 104 mmol/L Normal 98-109 [facility] Comment on above: Performed By: #### Snehal CANALES, 2639-3, BMP, 2156-6, , 2776-06 ####[facility] ([id number])[address], [address], [place] [address] CO2 [Moles/Vol] 25 mmol/L Normal 22-32 Comment on above: Performed By: #### Snehal CANALES, 2639-3, BMP, 2156-6, , 2776-1 ####[facility] ([id number])[address] [address], [place] [address] Creatinine [Mass/Vol] 1.35 mg/dL High 0.60-1.30 [facility] Comment on above: Result Comment: METH OD TRACEABLE TO IDMS STANDARD Performed By: #### C ALLY, 2639-3, BMP, 2157-6, 37237-1, 2776- ####[facility] ([id number])[address] [address] GFR/1.73 sq M.predicted among non-blacks MDRD (S/P/Bld) [Vol rate/Area] 61 mL/min/{1.73_m2} Normal >59 Comment on above: Result Comment: Reported eGFR is based on the CKD-EPI 2020 equation that does not use a race coefficient. Performed By: #### C ALLY, 2639-3, BMP, 2156-6, , 2776- ####[facility] ([id number])[address] [address] Glucose [Mass/Vol] 217 mg/dL High 65-99 [facility] Comment on above: Performed By: #### C ALLY, 2639-3, BMP, 2156-, , 2776-06 ####[facility] ([id number])[address] [address] Potassium [Moles/Vol] 4.2 mmol/L Normal 3.5-5.0 [facility] Comment on above: Performed By: #### C BC, 2639-3, BMP, 2156-6, 41410-8, 2776- ####[facility] ([id number])[address] [address] Sodium [Moles/Vol] 138 mmol/L Normal 134-146 [facility] Comment on above: Performed By: #### C BC, 2639-3, BMP, 215-6, , 2776-06 ####[facility] ([id number])[address] [address] [place] [address] Urea nitrogen [Mass/Vol] 23 mg/dL Normal 5-23 Comment on above: Performed By: #### C BC, 2639-3, BMP, 2156-, , 2776-06 ####[facility] ([id number])[address] [address] [place] [address] CK [Catalytic activity/Vol]o n 11-09-2023 CPK 44 U/L Normal 24-195 Comment on above: Performed By: #### 2 157-6, 2638-3 ####[facility] ([id number])[address] [address] CPK 30 U/L Normal 24-195 Comment on above: Performed By: #### C BC, 2638-3, BMP, 2156-11, , 2776-06 ####[facility] ([id number])[address] [address] COMPLETE BLOOD COUNTon 11-08 Erythrocyte distribution width (RBC) [Ratio] 24.9 % High 11.5-15.0 Comment on above: Performed By: #### C BC, 2638-3, BMP, 2156-11, , 2776-06 ####[facility] ([id number])[address] [address] Hematocrit (Bld) [Volume fraction] 26.8 % Low 39-49 Comment on above: Performed By: #### C BC, 2639-3, BMP, 2156-11, , 2776-06 ####[facility] ([id number])[address] [address] Hemoglobin (Bld) [Mass/Vol] 8.7 g/dL Low 13.0-17.0 Comment on above: Performed By: #### Snehal CANALES, 2639-3, BMP, 2156-11, , 2776-06 ####[facility] ([id number])[address] [address] [place] [address] MCH (RBC) [Entitic mass] 24.8 pg Low 27-34 Comment on above: Performed By: #### C ALLY, 2639-3, BMP, 2156-11, , 2776-06 ####[facility] ([id number])[address] [address] [place] [address] MCHC (RBC) [Mass/Vol] 32.6 g/dL Normal 32-36 [facility] Comment on above: Performed By: #### Snehal CANALES, 2639-3, BMP, 2156-11, , 2776-06 ####[facility] ([id number])[address] [address] [place] [address] MCV (RBC) [Entitic vol] 76 fL Low 80-100 Comment on above: Performed By: #### Snehal CANALES, 2639-3, BMP, 2156-11, , 2776-06 ####[facility] ([id number])[address] [address] [place] [address] Platelet mean volume (Bld) [Entitic vol] 9.3 fL Normal 7-12 Comment on above: Performed By: #### Snehal CANALES, 2639-3, BMP, 2156-11, , 2776-06 ####[facility] ([id number])[address] [address] [place] [address] Platelets (Bld) [#/Vol] 184 10*3/uL Normal 150-450 Comment on above: Performed By: #### C BC, 2639-3, [facility], 2156-11, , 2776-1 ####[facility] ([id number])[address], [address] [place] [address] RBC COUNT 3.53 X10E12/L Low 4.10-5.70 Comment on above: Performed By: #### C BC, 2639-3, [facility], 2156-11, , 2776-1 ####[facility] ([id number])[address], [address] [place] [address] WBC (Bld) [#/Vol] 11.0 10*3/uL Normal 4.0-11.0 [facility] Comment on above: Performed By: #### C BC, 2639-3, [facility], 2156-11, , 1 ####[facility] ([id number])[address], [address] [place] [address] Glucose Glucometer (BldC) [M ass/Vol]on 11-09-2023 Glucose [Mass/Vol] 243 mg/dL High 65-99 [facility] Glucose [Mass/Vol] 184 mg/dL High 65-99 [facility] Glucose [Mass/Vol] 199 mg/dL High 65-99 [facility] Glucose [Mass/Vol] 218 mg/dL High 65-99 [facility] Heparin unfractionated Chrom ogenic method Qn (PPP)on 11-09-2023 ANTI XA UFH 0.15 IU/mL Low 0.30-0.70 Comment on above: Result Comment: Opti mal time for testing is 6 hrs post dosage This test is specific for monitoring patients on UFH, and is not recommended for use with other Anti-Xa medications. Performed By: #### 3 274-8 ####[facility] ([id number])[address], [address] [place] [address] MAGNESIUMon 11-09-2023 Magnesium [Mass/Vol] 2.2 mg/dL Normal 1.8-2.6 [facility] Comment on above: Performed By: #### C BC, 2639-3, BMP, 2156-11, , 2776-1 ####[facility] ([id number])[address], [address], [place] [address] Myoglobin [Mass/Vol]on 11-08 SERUM MYOGLOBIN 97.7 ng/mL Normal 17.4-105.7 Comment on above: Performed By: #### 2 157-6, 2638-3 ####[facility] ([id number])[address], [address], [place] [address] SERUM MYOGLOBIN 51.7 ng/mL Normal 17.4-105.7 Comment on above: Performed By: #### C BC, 2639-3, BMP, 2156-11, , 2776-1 ####[facility] ([id number])[address], [address], [place] [address] PHOSPHORUSon 11-09-2023 Phosphate [Mass/Vol] 4.4 mg/dL Normal 2.4-4.9 [facility] Comment on above: Performed By: #### C ALLY, 2639-3, BMP, 2156-11, , 1 ####[facility] ([id number])[address], [address], [place] [address] BASIC METABOLIC PANLon 11-07 Anion gap [Moles/Vol] 9 mmol/L Normal 5-15 [facility] Comment on above: Performed By: #### P INR #### [facility] ([id number]) [address], [address] [place] [address] Calcium [Mass/Vol] 8.4 mg/dL Low 8.5-10.5 [facility] Comment on above: Performed By: #### P INR #### [facility] ([id number]) [address], [address] [place] [address] Chloride [Moles/Vol] 106 mmol/L Normal 98-109 [facility] Comment on above: Performed By: #### P INR #### [facility] ([id number]) [address], [address] [place] [address] CO2 [Moles/Vol] 24 mmol/L Normal 22-32 Comment on above: Performed By: #### P INR #### [facility] ([id number]) [address], [address] [place] [address] Creatinine [Mass/Vol] 1.30 mg/dL Normal 0.60-1.30 [facility] Comment on above: Result Comment: METH OD TRACEABLE TO IDMS STANDARD Performed By: #### P INR #### [facility] ([id number]) [address], [address] [place] [address] GFR/1.73 sq M.predicted among non-blacks MDRD (S/P/Bld) [Vol rate/Area] 64 mL/min/{1.73_m2} Normal >59 Comment on above: Result Comment: Reported eGFR is based on the CKD-EPI 2020 equation that does not use a race coefficient. Performed By: #### P INR #### [facility] ([id number]) [address], [address] [place] [address] Glucose [Mass/Vol] 163 mg/dL High 65-99 [facility] Comment on above: Performed By: #### P INR #### [facility] ([id number]) [address], [address] [place] [address] Potassium [Moles/Vol] 4.1 mmol/L Normal 3.5-5.0 [facility] Comment on above: Performed By: #### P INR #### [facility] ([id number]) [address], [address] [place] [address] Sodium [Moles/Vol] 139 mmol/L Normal 134-146 [facility] Comment on above: Performed By: #### P INR #### [facility] ([id number]) [address], [address] [place] [address] Urea nitrogen [Mass/Vol] 23 mg/dL Normal 5-23 Comment on above: Performed By: #### P INR #### [facility] ([id number]) [address], [address] [place] [address] Anion gap [Moles/Vol] 9 mmol/L Normal 5-15 [facility] Comment on above: Performed By: #### C BC, BMP #### [facility] ([id number]) [address] [place] [address] Calcium [Mass/Vol] 8.8 mg/dL Normal 8.5-10.5 [facility] Comment on above: Performed By: #### C BC, BMP #### [facility] ([id number]) [address], [address] [place] [address] Chloride [Moles/Vol] 104 mmol/L Normal 98-109 [facility] Comment on above: Performed By: #### C BC, BMP #### [facility] ([id number]) [address], [address] [place] [address] CO2 [Moles/Vol] 25 mmol/L Normal 22-32 Comment on above: Performed By: #### C BC, BMP #### [facility] ([id number]) [address], [address] [place] [address] Creatinine [Mass/Vol] 1.70 mg/dL High 0.60-1.30 [facility] Comment on above: Result Comment: METH OD TRACEABLE TO IDMS STANDARD Performed By: #### Snehal CANALES, BMP #### [facility] ([id number]) [address], [address] [place] [address] GFR/1.73 sq M.predicted among non-blacks MDRD (S/P/Bld) [Vol rate/Area] 46 mL/min/{1.73_m2} Low >59 Comment on above: Result Comment: Reported eGFR is based on the CKD-EPI 2020 equation that does not use a race coefficient. Performed By: #### Snehal CANALES, BMP #### [facility] ([id number]) [address], [address] [place] [address] Glucose [Mass/Vol] 111 mg/dL High 65-99 [facility] Comment on above: Performed By: #### Snehal CANALES, BMP #### [facility] ([id number]) [address], [address] [place] [address] Potassium [Moles/Vol] 3.8 mmol/L Normal 3.5-5.0 [facility] Comment on above: Performed By: #### Snehal CANALES, BMP #### [facility] ([id number]) [address], [address] [place] [address] Sodium [Moles/Vol] 138 mmol/L Normal 134-146 [facility] Comment on above: Performed By: #### Snehal CANALES, BMP #### [facility] ([id number]) [address], [address] [place] [address] Urea nitrogen [Mass/Vol] 28 mg/dL High 5-23 Comment on above: Performed By: #### Snehal CANALES, BMP #### [facility] ([id number]) [address], [address] [place] [address] CK [Catalytic activity/Vol]o n 11-08-2023 CPK 26 U/L Normal 24-195 Comment on above: Performed By: #### P INR #### [facility] ([id number]) [address] [address] [place] [address] COMPLETE BLOOD COUNTon 11-07 Erythrocyte distribution width (RBC) [Ratio] 24.8 % High 11.5-15.0 Comment on above: Performed By: #### P INR #### [facility] ([id number]) [address] [address] [place] [address] Hematocrit (Bld) [Volume fraction] 29.3 % Low 39-49 Comment on above: Performed By: #### P INR #### [facility] ([id number]) [address] [address] [place] [address] Hemoglobin (Bld) [Mass/Vol] 9.6 g/dL Low 13.0-17.0 Comment on above: Performed By: #### P INR #### [facility] ([id number]) [address], [address] [place] [address] MCH (RBC) [Entitic mass] 24.9 pg Low 27-34 Comment on above: Performed By: #### P INR #### [facility] ([id number]) [address], [address] [place] [address] MCHC (RBC) [Mass/Vol] 32.7 g/dL Normal 32-36 [facility] Comment on above: Performed By: #### P INR #### [facility] ([id number]) [address], [address] [place] [address] MCV (RBC) [Entitic vol] 76 fL Low 80-100 Comment on above: Performed By: #### P INR #### [facility] ([id number]) [address] [place] [address] Platelet mean volume (Bld) [Entitic vol] 8.7 fL Normal 7-12 Comment on above: Performed By: #### P INR #### [facility] ([id number]) [address], [address] [place] [address] Platelets (Bld) [#/Vol] 169 10*3/uL Normal 150-450 Comment on above: Performed By: #### P INR #### [facility] ([id number]) [address] [address] [place] [address] RBC COUNT 3.85 X10E12/L Low 4.10-5.70 Comment on above: Performed By: #### P INR #### [facility] ([id number]) [address] [address] [place] [address] WBC (Bld) [#/Vol] 13.5 10*3/uL High 4.0-11.0 [facility] Comment on above: Performed By: #### P INR #### [facility] ([id number]) [address], [facility] [address] [place] [address] Erythrocyte distribution width (RBC) [Ratio] 25.2 % High 11.5-15.0 Comment on above: Performed By: #### C BC, BMP #### [facility] ([id number]) [address], [address] [place] [address] Hematocrit (Bld) [Volume fraction] 33.0 % Low 39-49 Comment on above: Performed By: #### C BC, BMP #### [facility] ([id number]) [address] [address] [place] [address] Hemoglobin (Bld) [Mass/Vol] 10.8 g/dL Low 13.0-17.0 Comment on above: Performed By: #### C BC, BMP #### [facility] ([id number]) [address], [address] [place] [address] MCH (RBC) [Entitic mass] 25.0 pg Low 27-34 Comment on above: Performed By: #### C ALLY, BMP #### [facility] ([id number]) [address] [place] [address] MCHC (RBC) [Mass/Vol] 32.8 g/dL Normal 32-36 [facility] Comment on above: Performed By: #### C ALLY, BMP #### [facility] ([id number]) [address] [place] [address] MCV (RBC) [Entitic vol] 76 fL Low 80-100 Comment on above: Performed By: #### Sneahl CANALES, BMP #### [facility] ([id number]) [address], [address] [place] [address] Platelet mean volume (Bld) [Entitic vol] 8.8 fL Normal 7-12 Comment on above: Performed By: #### Snehal CANALES, BMP #### [facility] ([id number]) [address] [place] [address] Platelets (Bld) [#/Vol] 172 10*3/uL Normal 150-450 Comment on above: Performed By: #### Snehal CANALES, BMP #### [facility] ([id number]) [address] [place] [address] RBC COUNT 4.33 X10E12/L Normal 4.10-5.70 Comment on above: Performed By: #### Snehal CANALES, BMP #### [facility] ([id number]) [address], [address] [place] [address] WBC (Bld) [#/Vol] 9.3 10*3/uL Normal 4.0-11.0 [facility] Comment on above: Performed By: #### C BC, BMP #### [facility] ([id number]) [address] [place] [address] Glucose Glucometer (BldC) [M ass/Vol]on 11-08-2023 Glucose [Mass/Vol] 162 mg/dL High 65-99 [facility] Glucose [Mass/Vol] 96 mg/dL Normal 65-99 [facility] Glucose [Mass/Vol] 142 mg/dL High 65-99 [facility] Glucose [Mass/Vol] 114 mg/dL High 65-99 [facility] Lactate (P ekaterina) [Moles/Vol]o n 11-08-2023 LACTATE W/REFLEX 1.0 mmol/L Normal 0.4-2.0 [facility] Comment on above: Result Comment: Result did not trigger repeat Lactate, re-order if needed. Performed By: #### P INR #### [facility] ([id number]) [address], [address] [place] [address] MAGNESIUMon 11-08-2023 Magnesium [Mass/Vol] 1.7 mg/dL Low 1.8-2.6 [facility] Comment on above: Performed By: #### P INR #### [facility] ([id number]) [address], [address] [place] [address] Myoglobin [Mass/Vol]on 11-07 [facility]UM MYOGLOBIN 33.1 ng/mL Normal 17.4-105.7 Comment on above: Performed By: #### P INR #### [facility] ([id number]) [address], [address] [place] [address] PHOSPHORUSon 11-08-2023 Phosphate [Mass/Vol] 4.0 mg/dL Normal 2.4-4.9 [facility] Comment on above: Performed By: #### P INR #### [facility] ([id number]) [address], [address] [place] [address] PROTIME AND INRon 11-08-2023 INR Coag (PPP) [Relative time] 1.3 {INR} High 0.8-1.1 Comment on above: Performed By: #### P INR #### [facility] ([id number]) [address], [address] [place] [address] PT Coag (PPP) [Time] 14.7 s High 9.8-13.2 [facility] Comment on above: Performed By: #### P INR #### [facility] ([id number]) [address] [place] [address] RAPID CARDIACon 11-08-2023 [facility] Normal Comment on above: Performed By: #### A FAB5 #### [facility] ([id number]) [address] [place] [address] Base excess Calc (Bld) [Moles/Vol] 0.1 mmol/L Normal 0.0-2.0 Comment on above: Performed By: #### A FAB5 #### [facility] ([id number]) [address] [place] [address] Body temperature 98.6 [degF] Normal 37.0 [facility] Comment on above: Performed By: #### A FAB5 #### [facility] ([id number]) [address] [place] [address] Glucose [Mass/Vol] 117 mg/dL High 65-99 [facility] Comment on above: Performed By: #### A FAB5 #### [facility] ([id number]) [address] [place] [address] HCO3 (Bld) [Moles/Vol] 24.8 mmol/L Normal 22-26 [facility] Comment on above: Performed By: #### A FAB5 #### [facility] ([id number]) [address] [place] [address] Hematocrit (Bld) [Volume fraction] 31 % Low 39-49 Comment on above: Performed By: #### A FAB5 #### [facility] ([id number]) [address] [place] [address] Hemoglobin (Bld) [Mass/Vol] 10.2 g/dL Low 13.0-17.0 Comment on above: Performed By: #### A FAB5 #### [facility] ([id number]) [address] [place] [address] INSP. O2 CONC. 100 % Normal Comment on above: Performed By: #### A FAB5 #### [facility] ([id number]) [address] [place] [address] IONIZED CALCIUM 4.8 mg/dL Normal 4.5-5.3 Comment on above: Performed By: #### A FAB5 #### [facility] ([id number]) [address] [place] [address] Oxygen (Bld) [Partial pressure] 167 mm[Hg] High 80-100 Comment on above: Performed By: #### A FAB5 #### [facility] ([id number]) [address] [place] [address] Oxygen saturation in Blood 100.8 % Normal >90 Comment on above: Performed By: #### A FAB5 #### [facility] ([id number]) [address] [place] [address] PCO2 39.7 MMHG Normal 35-45 Comment on above: Performed By: #### A FAB5 #### [facility] ([id number]) [address] [place] [address] pH (Bld) 7.404 [pH] Normal 7.350-7.45 0 Comment on above: Performed By: #### A FAB5 #### [facility] ([id number]) [address] [place] [address] Potassium [Moles/Vol] 3.8 mmol/L Normal 3.5-5.0 [facility] Comment on above: Performed By: #### A FAB5 #### [facility] ([id number]) [address] [place] [address] SAMPLE SITE KECIA Normal Comment on above: Performed By: #### A FAB5 #### [facility] ([id number]) [address] [place] [address] SAMPLE TYPE Arterial Normal Comment on above: Performed By: #### A FAB5 #### [facility] ([id number]) [address] [place] [address] RAPID CARDIAC W/ NAon 2023 [facility] Normal Comment on above: Performed By: #### P INR #### [facility] ([id number]) [address] [place] [address] Base excess Calc (Bld) [Moles/Vol] 0.2 mmol/L Normal 0.0-2.0 Comment on above: Performed By: #### P INR #### [facility] ([id number]) [address] [place] [address] Body temperature 98.6 [degF] Normal 37.0 [facility] Comment on above: Performed By: #### P INR #### [facility] ([id number]) [address], [address] [place] [address] Glucose [Mass/Vol] 125 mg/dL High 65-99 [facility] Comment on above: Performed By: #### P INR #### [facility] ([id number]) [address], [address] [place] [address] HCO3 (Bld) [Moles/Vol] 25.3 mmol/L Normal 22-26 [facility] Comment on above: Performed By: #### P INR #### [facility] ([id number]) [address], [address] [place] [address] Hematocrit (Bld) [Volume fraction] 31 % Low 39-49 Comment on above: Performed By: #### P INR #### [facility] ([id number]) [address] [place] [address] Hemoglobin (Bld) [Mass/Vol] 10.0 g/dL Low 13.0-17.0 Comment on above: Performed By: #### P INR #### [facility] ([id number]) [address], [address] [place] [address] INSP. O2 CONC. 50 % Normal Comment on above: Performed By: #### P INR #### [facility] ([id number]) [address], [address] [place] [address] IONIZED CALCIUM 4.7 mg/dL Normal 4.5-5.3 Comment on above: Performed By: #### P INR #### [facility] ([id number]) [address], [address] [place] [address] Oxygen (Bld) [Partial pressure] 131 mm[Hg] High 80-100 Comment on above: Performed By: #### P INR #### [facility] ([id number]) [address], [address] [place] [address] Oxygen saturation in Blood 99.9 % Normal >90 Comment on above: Performed By: #### P INR #### [facility] ([id number]) [address], [address] [place] [address] PCO2 42.7 [facility] Normal 35-45 Comment on above: Performed By: #### P INR #### [facility] ([id number]) [address] [place] [address] pH (Bld) 7.381 [pH] Normal 7.350-7.45 0 Comment on above: Performed By: #### P INR #### [facility] ([id number]) [address] [place] [address] Potassium [Moles/Vol] 3.7 mmol/L Normal 3.5-5.0 [facility] Comment on above: Performed By: #### P INR #### [facility] ([id number]) [address] [address] [place] [address] SAMPLE SITE KECIA Normal Comment on above: Performed By: #### P INR #### [facility] ([id number]) [address] [place] [address] SAMPLE TYPE Arterial Normal Comment on above: Performed By: #### P INR #### [facility] ([id number]) [address] [place] [address] Sodium [Moles/Vol] 139 mmol/L Normal 134-146 [facility] Comment on above: Performed By: #### P INR #### [facility] ([id number]) [address] [place] [address] aPTT Coag (PPP) [Time]on aPTT Coag (Bld) [Time] 30 s Normal 26-37 Pr [facility] Comment on above: Performed By: #### P INR #### [facility] ([id number]) [address] [facility], [address] [place] [address] Glucose Glucometer (BldC) [M ass/Vol]on 11-07-2023 Glucose [Mass/Vol] 150 mg/dL High 65-99 [facility] Glucose [Mass/Vol] 58 mg/dL Low 65-99 [facility] POC JOBO1dd 11-07-2023 Chloride [Moles/Vol] 98 mmol/L Normal 98-109 [facility] Comment on above: Performed By: #### I ELGB #### [facility] ([id number]) [address] [place] [address] CO2 [Moles/Vol] 31 mmol/L Normal 22-32 Comment on above: Performed By: #### I ELGB #### [facility] ([id number]) [address] [place] [address] Creatinine [Mass/Vol] 1.9 mg/dL High 0.7-1.2 [facility] Comment on above: Result Comment: METH OD TRACEABLE TO IDMS STANDARD Performed By: #### I [facility] #### [facility] ([id number]) [address] [place] [address] GFR/1.73 sq M.predicted among non-blacks MDRD (S/P/Bld) [Vol rate/Area] 40 mL/min/{1.73_m2} Low >59 Comment on above: Result Comment: Reported eGFR is based on the CKD-EPI 2020 equation that does not use a race coefficient. Performed By: #### I ELGBC #### [facility] ([id number]) [address] [place] [address] Glucose [Mass/Vol] 72 mg/dL Normal 65-99 [facility] Comment on above: Performed By: #### I ELGBC #### [facility] ([id number]) [address] [place] [address] Potassium [Moles/Vol] 3.6 mmol/L Normal 3.5-5.0 [facility] Comment on above: Performed By: #### I [facility] #### [facility] ([id number]) [address] [place] [address] Sodium [Moles/Vol] 139 mmol/L Normal 134-146 [facility] Comment on above: Performed By: #### I [facility] #### [facility] ([id number]) [address] [place] [address] Urea nitrogen [Mass/Vol] 31 mg/dL High 6-23 Comment on above: Performed By: #### I [facility] #### [facility] ([id number]) [address] [place] [address] PROTIME AND INRon 11-07-2023 INR Coag (PPP) [Relative time] 1.3 {INR} High 0.8-1.1 Comment on above: Performed By: #### P INR #### [facility] ([id number]) [address] [facility], [address] [place] [address] PT Coag (PPP) [Time] 14.5 s High 9.8-13.2 [facility] Comment on above: Performed By: #### P INR #### [facility] ([id number]) [address] [facility] [address], [address] [place] [address] ECG 12 Leadon 10-24-2023 [facility] Work Phone: Consent for Treatmenton 10-04 Consent for Treatment [id number]#1.00TIFF Normal [facility] Office/Cl inic Noteon [...] 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 Normal [facility] Comment on above: Result Comment: Elec [...] by: HASEEB Technologist: TARAN [facility] CHEMISTRYOrdered By: SYSTEM SYSTEM on 10-19-2023 [...] 370 Contrast amount in ml's: 150 Normal [facility] Consent for Treatmenton 10-03 Consent for Treatment [id number]#1.00TIFF Normal [facility] Creatinineon 10-19-2023 Creatinine [Mass/Vol] 1.6 mg/dL High 0.5-1.3 [facility] Comment on above: Performed By: #### 2 [id number] #### [facility] [address] [place] [address] Physician Orderon 10-19-2023 Physician Order [id number]#1.00TIFF Normal [facility] eGFRon 10-19-2023 eGFR 50 mL/min/1.73 m2 Low >=59 [facility] Comment on above: Order Comment: Order added by Discern Expert. Performed By: #### 1 [id number] #### [facility] [address] [place] [address] Outside Progress Noteon 10-03 Outside Progress Note [id number]#1.00TIFF [facility] Physician Orderon 10-18-2023 Physician Order [id number]#1.00TIF F [facility] Physician Order [id number]#1.00TIFF [facility] Basophils Auto (Bld) [#/Vol] on 10-06-2023 Basophils (Bld) [#/Vol] 0.0 10 3/uL 0.0-0.1 [facility] Basophils/100 WBC Auto (Bld) on 10-06-2023 Basophils/100 WBC (Bld) 0.3 % 0.2-2.0 [facility] Eosinophils/100 WBC Auto (Bl d)on 10-06-2023 Eosinophils/100 WBC (Bld) 1.9 % 0.9-7.0 [facility] Erythrocyte distribution wid th Auto (RBC) [Ratio]on 10-06-2023 Erythrocyte distribution width (RBC) [Ratio] 19.9 % High 11.0-15.0 [facility] Estimated glomerular filtrat ion rate (GFR) non- Americanon 10-06-2023 GFR/1.73 sq M.predicted among non-blacks MDRD (S/P/Bld) [Vol rate/Area] 42 mL/min/{1.73_m2} Low >=60 [facility] Globulin Calc (S) [Mass/Vol] on 10-06-2023 Globulin (S) [Mass/Vol] 4.3 g/dL [facility] Hematocrit Auto (Bld) [Volum e fraction]on 10-06-2023 Hematocrit (Bld) [Volume fraction] 28.3 % Low 42.0-54.0 [facility] Hemoglobin [Mass/volume] in Bloodon 10-06-2023 Hemoglobin (Bld) [Mass/Vol] 8.4 g/dL Low 14.0-18.0 [facility] - Chemistry and C hemistry - challengeon 10-06-2023 Albumin [Mass/Vol] 2.1 g/dL Low 3.4-5.0 [facility] ALP [Catalytic activity/Vol] 133 U/L High 46-116 [facility] ALT [Catalytic activity/Vol] 18 U/L 16-63 [facility] AST [Catalytic activity/Vol] 20 U/L 15-37 [facility] Bilirubin [Mass/Vol] 0.3 mg/dL 0.2-1.0 [facility] Calcium [Mass/Vol] 9.4 mg/dL 8.5-10.1 [facility] Chloride [Moles/Vol] 103 mmol/L 98-107 [facility] CO2 [Moles/Vol] 23.7 mmol/L 21.0-32.0 [facility] Creatinine [Mass/Vol] 1.67 mg/dL High 0.70-1.30 [facility] GFR/1.73 sq M.predicted MDRD (S/P/Bld) [Vol rate/Area] 52 mL/min/{1.73_m2} Low >=60 [facility] Glucose [Mass/Vol] 91 mg/dL 74-106 [facility] Magnesium [Mass/Vol] 1.6 mg/dL Low 1.8-2.4 [facility] Potassium [Moles/Vol] 4.8 mmol/L 3.5-5.1 [facility] Protein [Mass/Vol] 6.4 g/dL 6.4-8.2 [facility] Sodium [Moles/Vol] 136 mmol/L 136-145 [facility] Urea nitrogen [Mass/Vol] 29.0 mg/dL High 7.0-18.0 [facility] Urea nitrogen/Creatinine [Mass ratio] 17.4 mg/mg [facility] - Hematology and Cell countson 10-06-2023 ESR (Bld) [Velocity] mm/h High <=20 [facility] Immature granulocytes/100 WBC (Bld) 1.5 % High 0.0-0.5 [facility] Leukocytes [#/volume] correc jorge for nucleated erythrocytes in Blood by Automated counon 10-06-2023 WBC corrected for nucl RBC Auto (Bld) [#/Vol] 11.6 10 3/uL High 4.0-11.0 [facility] Lymphocytes Auto (Bld) [#/Vo l]on 10-06-2023 Lymphocytes (Bld) [#/Vol] 1.5 10 3/uL 1.2-3.8 [facility] Lymphocytes/100 WBC Auto (Bl d)on 10-06-2023 Lymphocytes/100 WBC (Bld) 12.9 % Low 20.5-60.0 [facility] MCH Auto (RBC) [Entitic mass ]on 10-06-2023 MCH (RBC) [Entitic mass] 22.5 pg Low 25.9-34.0 [facility] MCHC Auto (RBC) [Mass/Vol]on 10-06-2023 MCHC (RBC) [Mass/Vol] 29.7 g/dL Low 29.9-35.2 [facility] MCV Auto (RBC) [Entitic vol] on 10-06-2023 MCV (RBC) [Entitic vol] 75.9 fL Low 80.0-94.0 [facility] Monocytes Auto (Bld) [#/Vol] on 10-06-2023 Monocytes (Bld) [#/Vol] 1.3 10 3/uL High 0.3-0.8 [facility] Monocytes/100 WBC Auto (Bld) on 10-06-2023 Monocytes/100 WBC (Bld) 10.9 % 1.7-12.0 [facility] Neutrophils Auto (Bld) [#/Vo l]on 10-06-2023 Neutrophils (Bld) [#/Vol] 8.4 10 3/uL High 1.4-6.5 [facility] Neutrophils/100 WBC Auto (Bl d)on 10-06-2023 Neutrophils/100 WBC (Bld) 72.5 % 43.0-75.0 [facility] No Panel Informationon 10-05 Eosinophils # (Auto) 0.2 10 3/uL 0.0-0.7 [facility] Immature Granulocyte # (Auto) 0.17 10 3/uL High 0.00-0.03 [facility] Platelet mean volume Auto (B ld) [Entitic vol]on 10-06-2023 Platelet mean volume (Bld) [Entitic vol] 10.3 fL 9.5-13.5 [facility] Platelets Auto (Bld) [#/Vol] on 10-06-2023 Platelets (Bld) [#/Vol] 233 10 3/uL 150-450 [facility] RBC Auto (Bld) [#/Vol]on RBC (Bld) [#/Vol] 3.73 10 6/uL Low 4.70-6.10 [facility] Serum or plasma albumin/glob ulin mass ratioon 10-06-2023 Albumin/Globulin [Mass ratio] 0.5 {ratio} [facility] Serum or plasma anion gap de terminationon 10-06-2023 Anion gap [Moles/Vol] 14.1 [facility] Basophils Auto (Bld) [#/Vol] on 10-05-2023 Basophils (Bld) [#/Vol] 0.1 10 3/uL 0.0-0.1 [facility] Basophils/100 WBC Auto (Bld) on 10-05-2023 Basophils/100 WBC (Bld) 0.6 % 0.2-2.0 [facility] Eosinophils/100 WBC Auto (Bl d)on 10-05-2023 Eosinophils/100 WBC (Bld) 3.3 % 0.9-7.0 [facility] Erythrocyte distribution wid th Auto (RBC) [Ratio]on 10-05-2023 Erythrocyte distribution width (RBC) [Ratio] 19.6 % High 11.0-15.0 [facility] Estimated glomerular filtrat ion rate (GFR) non- Americanon 10-05-2023 GFR/1.73 sq M.predicted among non-blacks MDRD (S/P/Bld) [Vol rate/Area] 41 mL/min/{1.73_m2} Low >=60 [facility] Globulin Calc (S) [Mass/Vol] on 10-05-2023 Globulin (S) [Mass/Vol] 4.7 g/dL [facility] Hematocrit Auto (Bld) [Volum e fraction]on 10-05-2023 Hematocrit (Bld) [Volume fraction] 29.9 % Low 42.0-54.0 [facility] Hemoglobin [Mass/volume] in Bloodon 10-05-2023 Hemoglobin (Bld) [Mass/Vol] 9.0 g/dL Low 14.0-18.0 [facility] - Chemistry and C hemistry - challengeon 10-05-2023 Albumin [Mass/Vol] 2.2 g/dL Low 3.4-5.0 [facility] ALP [Catalytic activity/Vol] 140 U/L High 46-116 [facility] ALT [Catalytic activity/Vol] 18 U/L 16-63 [facility] AST [Catalytic activity/Vol] 22 U/L 15-37 [facility] Bilirubin [Mass/Vol] 0.5 mg/dL 0.2-1.0 [facility] Calcium [Mass/Vol] 9.2 mg/dL 8.5-10.1 [facility] Chloride [Moles/Vol] 100 mmol/L 98-107 [facility] CO2 [Moles/Vol] 22.6 mmol/L 21.0-32.0 [facility] Creatinine [Mass/Vol] 1.74 mg/dL High 0.70-1.30 [facility] GFR/1.73 sq M.predicted MDRD (S/P/Bld) [Vol rate/Area] 49 mL/min/{1.73_m2} Low >=60 [facility] Glucose [Mass/Vol] 162 mg/dL High 74-106 [facility] Magnesium [Mass/Vol] 1.7 mg/dL Low 1.8-2.4 [facility] Potassium [Moles/Vol] 5.3 mmol/L High 3.5-5.1 [facility] Protein [Mass/Vol] 6.9 g/dL 6.4-8.2 [facility] Sodium [Moles/Vol] 133 mmol/L Low 136-145 [facility] Urea nitrogen [Mass/Vol] 30.0 mg/dL High 7.0-18.0 [facility] Urea nitrogen/Creatinine [Mass ratio] 17.2 mg/mg [facility] - Hematology and Cell countson 10-05-2023 ESR (Bld) [Velocity] 130 mm/h High <=20 [facility] Immature granulocytes/100 WBC (Bld) 1.3 % High 0.0-0.5 [facility] Leukocytes [#/volume] correc jorge for nucleated erythrocytes in Blood by Automated counon 10-05-2023 WBC corrected for nucl RBC Auto (Bld) [#/Vol] 12.6 10 3/uL High 4.0-11.0 [facility] Lymphocytes Auto (Bld) [#/Vo l]on 10-05-2023 Lymphocytes (Bld) [#/Vol] 1.3 10 3/uL 1.2-3.8 [facility] Lymphocytes/100 WBC Auto (Bl d)on 10-05-2023 Lymphocytes/100 WBC (Bld) 10.1 % Low 20.5-60.0 [facility] MCH Auto (RBC) [Entitic mass ]on 10-05-2023 MCH (RBC) [Entitic mass] 22.7 pg Low 25.9-34.0 [facility] MCHC Auto (RBC) [Mass/Vol]on 10-05-2023 MCHC (RBC) [Mass/Vol] 30.1 g/dL 29.9-35.2 [facility] MCV Auto (RBC) [Entitic vol] on 10-05-2023 MCV (RBC) [Entitic vol] 75.3 fL Low 80.0-94.0 [facility] Monocytes Auto (Bld) [#/Vol] on 10-05-2023 Monocytes (Bld) [#/Vol] 1.4 10 3/uL High 0.3-0.8 [facility] Monocytes/100 WBC Auto (Bld) on 10-05-2023 Monocytes/100 WBC (Bld) 10.9 % 1.7-12.0 [facility] Neutrophils Auto (Bld) [#/Vo l]on 10-05-2023 Neutrophils (Bld) [#/Vol] 9.3 10 3/uL High 1.4-6.5 [facility] Neutrophils/100 WBC Auto (Bl d)on 10-05-2023 Neutrophils/100 WBC (Bld) 73.8 % 43.0-75.0 [facility] No Panel Informationon 10-04 Eosinophils # (Auto) 0.4 10 3/uL 0.0-0.7 [facility] Immature Granulocyte # (Auto) 0.16 10 3/uL High 0.00-0.03 [facility] Platelet mean volume Auto (B ld) [Entitic vol]on 10-05-2023 Platelet mean volume (Bld) [Entitic vol] 11.3 fL 9.5-13.5 [facility] Platelets Auto (Bld) [#/Vol] on 10-05-2023 Platelets (Bld) [#/Vol] 203 10 3/uL 150-450 [facility] RBC Auto (Bld) [#/Vol]on RBC (Bld) [#/Vol] 3.97 10 6/uL Low 4.70-6.10 [facility] Serum or plasma albumin/glob ulin mass ratioon 10-05-2023 Albumin/Globulin [Mass ratio] 0.5 {ratio} [facility] Serum or plasma anion gap de terminationon 10-05-2023 Anion gap [Moles/Vol] 15.7 [facility] Basophils Auto (Bld) [#/Vol] on 10-04-2023 Basophils (Bld) [#/Vol] 0.1 10 3/uL 0.0-0.1 [facility] Basophils/100 WBC Auto (Bld) on 10-04-2023 Basophils/100 WBC (Bld) 0.5 % 0.2-2.0 [facility] Eosinophils/100 WBC Auto (Bl d)on 10-04-2023 Eosinophils/100 WBC (Bld) 3.6 % 0.9-7.0 [facility] Erythrocyte distribution wid th Auto (RBC) [Ratio]on 10-04-2023 Erythrocyte distribution width (RBC) [Ratio] 19.6 % High 11.0-15.0 [facility] Estimated glomerular filtrat ion rate (GFR) non- Americanon 10-04-2023 GFR/1.73 sq M.predicted among non-blacks MDRD (S/P/Bld) [Vol rate/Area] 44 mL/min/{1.73_m2} Low >=60 [facility] Globulin Calc (S) [Mass/Vol] on 10-04-2023 Globulin (S) [Mass/Vol] 4.3 g/dL [facility] Hematocrit Auto (Bld) [Volum e fraction]on 10-04-2023 Hematocrit (Bld) [Volume fraction] 26.8 % Low 42.0-54.0 [facility] Hemoglobin [Mass/volume] in Bloodon 10-04-2023 Hemoglobin (Bld) [Mass/Vol] 7.9 g/dL Low 14.0-18.0 [facility] - Chemistry and C hemistry - challengeon 10-04-2023 Albumin [Mass/Vol] 1.9 g/dL Low 3.4-5.0 [facility] ALP [Catalytic activity/Vol] 135 U/L High 46-116 [facility] ALT [Catalytic activity/Vol] 16 U/L 16-63 [facility] AST [Catalytic activity/Vol] 19 U/L 15-37 [facility] Bilirubin [Mass/Vol] 0.4 mg/dL 0.2-1.0 [facility] Calcium [Mass/Vol] 7.8 mg/dL Low 8.5-10.1 [facility] Chloride [Moles/Vol] 102 mmol/L 98-107 [facility] CO2 [Moles/Vol] 25.0 mmol/L 21.0-32.0 [facility] Creatinine [Mass/Vol] 1.61 mg/dL High 0.70-1.30 [facility] GFR/1.73 sq M.predicted MDRD (S/P/Bld) [Vol rate/Area] 54 mL/min/{1.73_m2} Low >=60 [facility] Glucose [Mass/Vol] 136 mg/dL High 74-106 [facility] Magnesium [Mass/Vol] 1.7 mg/dL Low 1.8-2.4 [facility] Potassium [Moles/Vol] 5.1 mmol/L 3.5-5.1 [facility] Protein [Mass/Vol] 6.2 g/dL Low 6.4-8.2 [facility] Sodium [Moles/Vol] 134 mmol/L Low 136-145 [facility] Urea nitrogen [Mass/Vol] 25.0 mg/dL High 7.0-18.0 [facility] Urea nitrogen/Creatinine [Mass ratio] 15.5 mg/mg [facility] - Hematology and Cell countson 10-04-2023 ESR (Bld) [Velocity] 117 mm/h High <=20 [facility] Immature granulocytes/100 WBC (Bld) 0.9 % High 0.0-0.5 [facility] Leukocytes [#/volume] correc jorge for nucleated erythrocytes in Blood by Automated counon 10-04-2023 WBC corrected for nucl RBC Auto (Bld) [#/Vol] 11.5 10 3/uL High 4.0-11.0 [facility] Lymphocytes Auto (Bld) [#/Vo l]on 10-04-2023 Lymphocytes (Bld) [#/Vol] 1.3 10 3/uL 1.2-3.8 [facility] Lymphocytes/100 WBC Auto (Bl d)on 10-04-2023 Lymphocytes/100 WBC (Bld) 10.9 % Low 20.5-60.0 [facility] MCH Auto (RBC) [Entitic mass ]on 10-04-2023 MCH (RBC) [Entitic mass] 22.4 pg Low 25.9-34.0 [facility] MCHC Auto (RBC) [Mass/Vol]on 10-04-2023 MCHC (RBC) [Mass/Vol] 29.5 g/dL Low 29.9-35.2 [facility] MCV Auto (RBC) [Entitic vol] on 10-04-2023 MCV (RBC) [Entitic vol] 75.9 fL Low 80.0-94.0 [facility] Monocytes Auto (Bld) [#/Vol] on 10-04-2023 Monocytes (Bld) [#/Vol] 1.4 10 3/uL High 0.3-0.8 [facility] Monocytes/100 WBC Auto (Bld) on 10-04-2023 Monocytes/100 WBC (Bld) 12.4 % High 1.7-12.0 [facility] Neutrophils Auto (Bld) [#/Vo l]on 10-04-2023 Neutrophils (Bld) [#/Vol] 8.3 10 3/uL High 1.4-6.5 [facility] Neutrophils/100 WBC Auto (Bl d)on 10-04-2023 Neutrophils/100 WBC (Bld) 71.7 % 43.0-75.0 [facility] No Panel Informationon 10-03 Eosinophils # (Auto) 0.4 10 3/uL 0.0-0.7 [facility] Immature Granulocyte # (Auto) 0.10 10 3/uL High 0.00-0.03 [facility] Platelet mean volume Auto (B ld) [Entitic vol]on 10-04-2023 Platelet mean volume (Bld) [Entitic vol] 11.5 fL 9.5-13.5 [facility] Platelets Auto (Bld) [#/Vol] on 10-04-2023 Platelets (Bld) [#/Vol] 154 10 3/uL 150-450 [facility] RBC Auto (Bld) [#/Vol]on RBC (Bld) [#/Vol] 3.53 10 6/uL Low 4.70-6.10 [facility] Serum or plasma albumin/glob ulin mass ratioon 10-04-2023 Albumin/Globulin [Mass ratio] 0.4 {ratio} [facility] Serum or plasma anion gap de terminationon 10-04-2023 Anion gap [Moles/Vol] 12.1 mmol/[facility] Basophils Auto (Bld) [#/Vol] on 10-03-2023 Basophils (Bld) [#/Vol] 0.1 10 3/uL 0.0-0.1 [facility] Basophils/100 WBC Auto (Bld) on 10-03-2023 Basophils/100 WBC (Bld) 0.7 % 0.2-2.0 [facility] Eosinophils/100 WBC Auto (Bl d)on 10-03-2023 Eosinophils/100 WBC (Bld) 2.7 % 0.9-7.0 [facility] Erythrocyte distribution wid th Auto (RBC) [Ratio]on 10-03-2023 Erythrocyte distribution width (RBC) [Ratio] 19.2 % High 11.0-15.0 [facility] Estimated glomerular filtrat ion rate (GFR) non- Americanon 10-03-2023 GFR/1.73 sq M.predicted among non-blacks MDRD (S/P/Bld) [Vol rate/Area] 46 mL/min/{1.73_m2} Low >=60 [facility] Globulin Calc (S) [Mass/Vol] on 10-03-2023 Globulin (S) [Mass/Vol] 4.1 g/dL [facility] Hematocrit Auto (Bld) [Volum e fraction]on 10-03-2023 Hematocrit (Bld) [Volume fraction] 26.4 % Low 42.0-54.0 [facility] Hemoglobin [Mass/volume] in Bloodon 10-03-2023 Hemoglobin (Bld) [Mass/Vol] 8.1 g/dL Low 14.0-18.0 [facility] Laboratory - Chemistry and C hemistry - challengeon 10-03-2023 Albumin [Mass/Vol] 1.9 g/dL Low 3.4-5.0 [facility] ALP [Catalytic activity/Vol] 140 U/L High 46-116 [facility] ALT [Catalytic activity/Vol] 17 U/L 16-63 [facility] AST [Catalytic activity/Vol] 21 U/L 15-37 [facility] Bilirubin [Mass/Vol] 0.3 mg/dL 0.2-1.0 [facility] Calcium [Mass/Vol] 6.7 mg/dL Low 8.5-10.1 [facility] Chloride [Moles/Vol] 101 mmol/L 98-107 [facility] CO2 [Moles/Vol] 23.9 mmol/L 21.0-32.0 [facility] Creatinine [Mass/Vol] 1.57 mg/dL High 0.70-1.30 [facility] GFR/1.73 sq M.predicted MDRD (S/P/Bld) [Vol rate/Area] 55 mL/min/{1.73_m2} Low >=60 [facility] Glucose [Mass/Vol] 142 mg/dL High 74-106 [facility] Magnesium [Mass/Vol] 1.3 mg/dL Low 1.8-2.4 [facility] Potassium [Moles/Vol] 4.8 mmol/L 3.5-5.1 [facility] Protein [Mass/Vol] 6.0 g/dL Low 6.4-8.2 [facility] Sodium [Moles/Vol] 134 mmol/L Low 136-145 [facility] Urea nitrogen [Mass/Vol] 23.0 mg/dL High 7.0-18.0 [facility] Urea nitrogen/Creatinine [Mass ratio] 14.6 mg/mg [facility] Laboratory - Hematology and Cell countson 10-03-2023 ESR (Bld) [Velocity] mm/h High <=20 [facility] Immature granulocytes/100 WBC (Bld) 1.0 % High 0.0-0.5 [facility] Leukocytes [#/volume] correc jorge for nucleated erythrocytes in Blood by Automated counon 10-03-2023 WBC corrected for nucl RBC Auto (Bld) [#/Vol] 11.6 10 3/uL High 4.0-11.0 [facility] Lymphocytes Auto (Bld) [#/Vo l]on 10-03-2023 Lymphocytes (Bld) [#/Vol] 1.4 10 3/uL 1.2-3.8 [facility] Lymphocytes/100 WBC Auto (Bl d)on 10-03-2023 Lymphocytes/100 WBC (Bld) 12.1 % Low 20.5-60.0 [facility] MCH Auto (RBC) [Entitic mass ]on 10-03-2023 MCH (RBC) [Entitic mass] 23.2 pg Low 25.9-34.0 [facility] MCHC Auto (RBC) [Mass/Vol]on 10-03-2023 MCHC (RBC) [Mass/Vol] 30.7 g/dL 29.9-35.2 [facility] MCV Auto (RBC) [Entitic vol] on 10-03-2023 MCV (RBC) [Entitic vol] 75.6 fL Low 80.0-94.0 [facility] Monocytes Auto (Bld) [#/Vol] on 10-03-2023 Monocytes (Bld) [#/Vol] 1.3 10 3/uL High 0.3-0.8 [facility] Monocytes/100 WBC Auto (Bld) on 10-03-2023 Monocytes/100 WBC (Bld) 10.8 % 1.7-12.0 [facility] Neutrophils Auto (Bld) [#/Vo l]on 10-03-2023 Neutrophils (Bld) [#/Vol] 8.5 10 3/uL High 1.4-6.5 [facility] Neutrophils/100 WBC Auto (Bl d)on 10-03-2023 Neutrophils/100 WBC (Bld) 72.7 % 43.0-75.0 [facility] No Panel Informationon 10-02 Eosinophils # (Auto) 0.3 10 3/uL 0.0-0.7 [facility] Immature Granulocyte # (Auto) 0.12 10 3/uL High 0.00-0.03 [facility] Platelet mean volume Auto (B ld) [Entitic vol]on 10-03-2023 Platelet mean volume (Bld) [Entitic vol] 11.3 fL 9.5-13.5 [facility] Platelets Auto (Bld) [#/Vol] on 10-03-2023 Platelets (Bld) [#/Vol] 141 10 3/uL Low 150-450 [facility] RBC Auto (Bld) [#/Vol]on RBC (Bld) [#/Vol] 3.49 10 6/uL Low 4.70-6.10 [facility] Serum or plasma albumin/glob ulin mass ratioon 10-03-2023 Albumin/Globulin [Mass ratio] 0.5 {ratio} [facility] Serum or plasma anion gap de terminationon 10-03-2023 Anion gap [Moles/Vol] 13.9 [facility] Basophils Auto (Bld) [#/Vol] on 10-02-2023 Basophils (Bld) [#/Vol] 0.0 10 3/uL 0.0-0.1 [facility] Basophils/100 WBC Auto (Bld) on 10-02-2023 Basophils/100 WBC (Bld) 0.4 % 0.2-2.0 [facility] Eosinophils/100 WBC Auto (Bl d)on 10-02-2023 Eosinophils/100 WBC (Bld) 2.2 % 0.9-7.0 [facility] Erythrocyte distribution wid th Auto (RBC) [Ratio]on 10-02-2023 Erythrocyte distribution width (RBC) [Ratio] 19.3 % High 11.0-15.0 [facility] Estimated glomerular filtrat ion rate (GFR) non- Americanon 10-02-2023 GFR/1.73 sq M.predicted among non-blacks MDRD (S/P/Bld) [Vol rate/Area] 41 mL/min/{1.73_m2} Low >=60 [facility] Globulin Calc (S) [Mass/Vol] on 10-02-2023 Globulin (S) [Mass/Vol] 4.2 g/dL [facility] Hematocrit Auto (Bld) [Volum e fraction]on 10-02-2023 Hematocrit (Bld) [Volume fraction] 26.1 % Low 42.0-54.0 [facility] Hemoglobin [Mass/volume] in Bloodon 10-02-2023 Hemoglobin (Bld) [Mass/Vol] 7.8 g/dL Low 14.0-18.0 [facility] Laboratory - Chemistry and C hemistry - challengeon 10-02-2023 Albumin [Mass/Vol] 2.1 g/dL Low 3.4-5.0 [facility] ALP [Catalytic activity/Vol] 131 U/L High 46-116 [facility] ALT [Catalytic activity/Vol] 17 U/L 16-63 [facility] AST [Catalytic activity/Vol] 13 U/L Low 15-37 [facility] Bilirubin [Mass/Vol] 0.3 mg/dL 0.2-1.0 [facility] Calcium [Mass/Vol] 6.6 mg/dL Low 8.5-10.1 [facility] Chloride [Moles/Vol] 105 mmol/L 98-107 [facility] CO2 [Moles/Vol] 24.3 mmol/L 21.0-32.0 [facility] Creatinine [Mass/Vol] 1.72 mg/dL High 0.70-1.30 [facility] GFR/1.73 sq M.predicted MDRD (S/P/Bld) [Vol rate/Area] 50 mL/min/{1.73_m2} Low >=60 [facility] Glucose [Mass/Vol] 156 mg/dL High 74-106 [facility] Magnesium [Mass/Vol] 1.5 mg/dL Low 1.8-2.4 [facility] Potassium [Moles/Vol] 4.0 mmol/L 3.5-5.1 [facility] Protein [Mass/Vol] 6.3 g/dL Low 6.4-8.2 [facility] Sodium [Moles/Vol] 139 mmol/L 136-145 [facility] Urea nitrogen [Mass/Vol] 27.0 mg/dL High 7.0-18.0 [facility] Urea nitrogen/Creatinine [Mass ratio] 15.7 mg/mg [facility] Laboratory - Hematology and Cell countson 04-29-2024 Immature granulocytes/100 WBC (Bld) 0.4 % 0.0-0.5 [facility] ESR (Bld) [Velocity] 110 mm/h High <=20 [facility] Laboratory - Microbiology an d Antimicrobial susceptibilityOrdered By: Truman Bryant on 10-02-2023 Microscopic observation Gram stain Nom (Unsp spec) [facility] Leukocytes [#/volume] correc jorge for nucleated erythrocytes in Blood by Automated counon 10-02-2023 WBC corrected for nucl RBC Auto (Bld) [#/Vol] 8.5 10 3/uL 4.0-11.0 [facility] Lymphocytes Auto (Bld) [#/Vo l]on 10-02-2023 Lymphocytes (Bld) [#/Vol] 1.5 10 3/uL 1.2-3.8 [facility] Lymphocytes/100 WBC Auto (Bl d)on 10-02-2023 Lymphocytes/100 WBC (Bld) 17.3 % Low 20.5-60.0 [facility] MCH Auto (RBC) [Entitic mass ]on 10-02-2023 MCH (RBC) [Entitic mass] 22.5 pg Low 25.9-34.0 [facility] MCHC Auto (RBC) [Mass/Vol]on 10-02-2023 MCHC (RBC) [Mass/Vol] 29.9 g/dL 29.9-35.2 [facility] MCV Auto (RBC) [Entitic vol] on 10-02-2023 MCV (RBC) [Entitic vol] 75.2 fL Low 80.0-94.0 [facility] Monocytes Auto (Bld) [#/Vol] on 10-02-2023 Monocytes (Bld) [#/Vol] 0.8 10 3/uL 0.3-0.8 [facility] Monocytes/100 WBC Auto (Bld) on 10-02-2023 Monocytes/100 WBC (Bld) 9.1 % 1.7-12.0 [facility] Neutrophils Auto (Bld) [#/Vo l]on 10-02-2023 Neutrophils (Bld) [#/Vol] 6.0 10 3/uL 1.4-6.5 [facility] Neutrophils/100 WBC Auto (Bl d)on 10-02-2023 Neutrophils/100 WBC (Bld) 70.6 % 43.0-75.0 [facility] No Panel Informationon 10-01 Eosinophils # (Auto) 0.2 10 3/uL 0.0-0.7 [facility] Immature Granulocyte # (Auto) 0.03 10 3/uL 0.00-0.03 [facility] Fungal Smear Result [facility] Miscellaneous Test Comment See comment [facility] Comment on above: Specimen Source: JONO TRT - Foot Right - Foot Rt - 604.000 No Panel InformationOrdered By: Truman Bryant on 10-02-2023 Tissue Culture [facility] No Panel InformationOrdered By: Paula Soto on 10-02-2023 Acid Fast Smear [facility] AFB Specimen Processing [facility] Platelet mean volume Auto (B ld) [Entitic vol]on 10-02-2023 Platelet mean volume (Bld) [Entitic vol] 10.6 fL 9.5-13.5 [facility] Platelets Auto (Bld) [#/Vol] on 10-02-2023 Platelets (Bld) [#/Vol] 142 10 3/uL Low 150-450 [facility] RBC Auto (Bld) [#/Vol]on RBC (Bld) [#/Vol] 3.47 10 6/uL Low 4.70-6.10 [facility] Serum or plasma albumin/glob ulin mass ratioon 10-02-2023 Albumin/Globulin [Mass ratio] 0.5 {ratio} [facility] Serum or plasma anion gap de terminationon 10-02-2023 Anion gap [Moles/Vol] 13.7 mmol/L [facility] Basophils Auto (Bld) [#/Vol] on 10-01-2023 Basophils (Bld) [#/Vol] 0.0 10 3/uL 0.0-0.1 [facility] Basophils/100 WBC Auto (Bld) on 10-01-2023 Basophils/100 WBC (Bld) 0.4 % 0.2-2.0 [facility] Eosinophils/100 WBC Auto (Bl d)on 10-01-2023 Eosinophils/100 WBC (Bld) 1.7 % 0.9-7.0 [facility] Erythrocyte distribution wid th Auto (RBC) [Ratio]on 10-01-2023 Erythrocyte distribution width (RBC) [Ratio] 18.5 % High 11.0-15.0 [facility] Estimated glomerular filtrat ion rate (GFR) non- Americanon 10-01-2023 GFR/1.73 sq M.predicted among non-blacks MDRD (S/P/Bld) [Vol rate/Area] 27 mL/min/{1.73_m2} Low >=60 [facility] Globulin Calc (S) [Mass/Vol] on 10-01-2023 Globulin (S) [Mass/Vol] 4.0 g/dL [facility] Hematocrit Auto (Bld) [Volum e fraction]on 10-01-2023 Hematocrit (Bld) [Volume fraction] 26.5 % Low 42.0-54.0 [facility] Hemoglobin [Mass/volume] in Bloodon 10-01-2023 Hemoglobin (Bld) [Mass/Vol] 8.0 g/dL Low 14.0-18.0 [facility] Laboratory - Chemistry and C hemistry - challengeon 10-01-2023 Lactate [Moles/Vol] 1.8 mmol/L 0.4-2.0 [facility] Albumin [Mass/Vol] 1.9 g/dL Low 3.4-5.0 [facility] ALP [Catalytic activity/Vol] 113 U/L 46-116 [facility] ALT [Catalytic activity/Vol] 17 U/L 16-63 [facility] AST [Catalytic activity/Vol] 14 U/L Low 15-37 [facility] Bilirubin [Mass/Vol] 0.3 mg/dL 0.2-1.0 [facility] Calcium [Mass/Vol] 5.7 mg/dL Low 8.5-10.1 [facility] Comment on above: RESULTS CALLED TO Patricio OlguinRN)@BY SKY AndersonT at 0619 Chloride [Moles/Vol] 102 mmol/L 98-107 [facility] CO2 [Moles/Vol] 20.4 mmol/L Low 21.0-32.0 [facility] Creatinine [Mass/Vol] 2.46 mg/dL High 0.70-1.30 [facility] GFR/1.73 sq M.predicted MDRD (S/P/Bld) [Vol rate/Area] 33 mL/min/{1.73_m2} Low >=60 [facility] Glucose [Mass/Vol] 67 mg/dL Low 74-106 [facility] Magnesium [Mass/Vol] 0.8 mg/dL Low 1.8-2.4 [facility] Comment on above: RESULTS CALLED TO Patricio FontaineRN)@BY [address] at 0601 Potassium [Moles/Vol] 3.1 mmol/L Low 3.5-5.1 [facility] Protein [Mass/Vol] 5.9 g/dL Low 6.4-8.2 [facility] Sodium [Moles/Vol] 138 mmol/L 136-145 [facility] Urea nitrogen [Mass/Vol] 28.0 mg/dL High 7.0-18.0 [facility] Urea nitrogen/Creatinine [Mass ratio] 11.4 mg/mg [facility] Laboratory - Hematology and Cell countson 10-01-2023 ESR (Bld) [Velocity] 96 mm/h High <=20 [facility] Immature granulocytes/100 WBC (Bld) 0.6 % High 0.0-0.5 [facility] Leukocytes [#/volume] correc jorge for nucleated erythrocytes in Blood by Automated counon 10-01-2023 WBC corrected for nucl RBC Auto (Bld) [#/Vol] 10.0 10 3/uL 4.0-11.0 [facility] Lymphocytes Auto (Bld) [#/Vo l]on 10-01-2023 Lymphocytes (Bld) [#/Vol] 1.3 10 3/uL 1.2-3.8 [facility] Lymphocytes/100 WBC Auto (Bl d)on 10-01-2023 Lymphocytes/100 WBC (Bld) 12.8 % Low 20.5-60.0 [facility] MCH Auto (RBC) [Entitic mass ]on 10-01-2023 MCH (RBC) [Entitic mass] 22.4 pg Low 25.9-34.0 [facility] MCHC Auto (RBC) [Mass/Vol]on 10-01-2023 MCHC (RBC) [Mass/Vol] 30.2 g/dL 29.9-35.2 [facility] MCV Auto (RBC) [Entitic vol] on 10-01-2023 MCV (RBC) [Entitic vol] 74.2 fL Low 80.0-94.0 [facility] Monocytes Auto (Bld) [#/Vol] on 10-01-2023 Monocytes (Bld) [#/Vol] 0.7 10 3/uL 0.3-0.8 [facility] Monocytes/100 WBC Auto (Bld) on 10-01-2023 Monocytes/100 WBC (Bld) 6.9 % 1.7-12.0 [facility] Neutrophils Auto (Bld) [#/Vo l]on 10-01-2023 Neutrophils (Bld) [#/Vol] 7.8 10 3/uL High 1.4-6.5 [facility] Neutrophils/100 WBC Auto (Bl d)on 10-01-2023 Neutrophils/100 WBC (Bld) 77.6 % High 43.0-75.0 [facility] No Panel Informationon 09-30 C-Reactive Protein, Quantitative 10.58 mg/dL High <=0.50 [facility] Eosinophils # (Auto) 0.2 10 3/uL 0.0-0.7 [facility] Immature Granulocyte # (Auto) 0.06 10 3/uL High 0.00-0.03 [facility] Troponin I High Sensitivity 8.3 pg/mL 4.0-76.1 [facility] Comment on above: CUT-OFF POINTS HAVE [...] Partial Pressure CO2 30.4 mm[Hg] Low 40.0-52.0 [facility] Venous Blood pH 7.421 7.330-7.43 0 [facility] Platelet mean volume Auto (B ld) [Entitic vol]on 10-01-2023 Platelet mean volume (Bld) [Entitic vol] 11.2 fL 9.5-13.5 [facility] Platelets Auto (Bld) [#/Vol] on 10-01-2023 Platelets (Bld) [#/Vol] 164 10 3/uL 150-450 [facility] RBC Auto (Bld) [#/Vol]on RBC (Bld) [#/Vol] 3.57 10 6/uL Low 4.70-6.10 [facility] Serum or plasma albumin/glob ulin mass ratioon 10-01-2023 Albumin/Globulin [Mass ratio] 0.5 {ratio} [facility] Serum or plasma anion gap de terminationon 10-01-2023 Anion gap [Moles/Vol] 18.7 mmol/L [facility] Automated epithelial cells c ount in urine sediment (number/area)on 09-30-2023 Epithelial cells Auto (Urine sed) [#/Area] NONE SEEN #/LPF NONE/RARE [facility] Automated leukocytes count i n urine sediment (number/area)on 09-30-2023 WBC Auto (Urine sed) [#/Area] NONE SEEN #/HPF 0-2 [facility] Automated urine specific gra vity by refractometryon 09-30-2023 Specific gravity Refractometry automated (U) [Rel density] <=1.005 Abnormal 1.005-1.02 5 [facility] Basophils Auto (Bld) [#/Vol] on 09-30-2023 Basophils (Bld) [#/Vol] 0.1 10 3/uL 0.0-0.1 [facility] Basophils/100 WBC Auto (Bld) on 09-30-2023 Basophils/100 WBC (Bld) 0.4 % 0.2-2.0 [facility] Bilirubin Auto test strip (U ) [Mass/Vol]on 09-30-2023 Bilirubin (U) [Mass/Vol] Negative NEGATIVE [facility] Casts typing in urine sedime nt by light microscopyon 09-30-2023 Casts LM Nom (Urine sed) NONE SEEN #/LPF NONE SEEN [facility] Color Auto (U)on 09-30-2023 Color (U) LT. YELLOW YELLOW [facility] Eosinophils/100 WBC Auto (Bl d)on 09-30-2023 Eosinophils/100 WBC (Bld) 1.4 % 0.9-7.0 [facility] Erythrocyte distribution wid th Auto (RBC) [Ratio]on 09-30-2023 Erythrocyte distribution width (RBC) [Ratio] 19.0 % High 11.0-15.0 [facility] Estimated glomerular filtrat ion rate (GFR) non- Americanon 09-30-2023 GFR/1.73 sq M.predicted among non-blacks MDRD (S/P/Bld) [Vol rate/Area] 19 mL/min/{1.73_m2} Low >=60 [facility] Globulin Calc (S) [Mass/Vol] on 09-30-2023 Globulin (S) [Mass/Vol] 4.8 g/dL [facility] Hematocrit Auto (Bld) [Volum e fraction]on 09-30-2023 Hematocrit (Bld) [Volume fraction] 32.9 % Low 42.0-54.0 [facility] Hemoglobin [Mass/volume] in Bloodon 09-30-2023 Hemoglobin (Bld) [Mass/Vol] 10.0 g/dL Low 14.0-18.0 [facility] INR in Platelet poor plasma by Coagulation assayon 09-30-2023 INR Coag (PPP) [Relative time] 1.23 {INR} [facility] Comment on above: DESIRED INR:2.0-3.0 CONDITIONS NOT LISTED BELOW2.5-3.5 FOR PROSTHETIC HEART VALVE REPLACEMENT2.5-3.5 RECURRENT THROMBOSIS Ketones Auto test strip (U) [Mass/Vol]on 09-30-2023 Ketones (U) [Mass/Vol] Negative NEGATIVE [facility] - Chemistry and C hemistry - challengeon 09-30-2023 Lactate [Moles/Vol] 4.2 mmol/L High 0.4-2.0 [facility] Comment on above: RESULTS CALLED TO Patricio Genao (RN)@BY [address] Way at 2312 Albumin [Mass/Vol] 2.4 g/dL Low 3.4-5.0 [facility] ALP [Catalytic activity/Vol] 145 U/L High 46-116 [facility] ALT [Catalytic activity/Vol] 17 U/L 16-63 [facility] AST [Catalytic activity/Vol] 21 U/L 15-37 [facility] Bilirubin [Mass/Vol] 0.4 mg/dL 0.2-1.0 [facility] Calcium [Mass/Vol] 5.8 mg/dL Low 8.5-10.1 [facility] Comment on above: RESULTS CALLED TO KELECHI CASTANON @BY Verona Hanson at 1645 Chloride [Moles/Vol] 97 mmol/L Low 98-107 [facility] CO2 [Moles/Vol] 18.3 mmol/L Low 21.0-32.0 [facility] Creatinine [Mass/Vol] 3.43 mg/dL High 0.70-1.30 [facility] GFR/1.73 sq M.predicted MDRD (S/P/Bld) [Vol rate/Area] 22 mL/min/{1.73_m2} Low >=60 [facility] Glucose [Mass/Vol] 208 mg/dL High 74-106 [facility] Magnesium [Mass/Vol] 0.5 mg/dL Low 1.8-2.4 [facility] Comment on above: RESULTS CALLED TO Kelechi Castanon @BY Marybel Hawkins MLT [id number] Natriuretic peptide B (Bld) [Mass/Vol] 611.0 pg/mL <=900.0 [facility] Potassium [Moles/Vol] 3.9 mmol/L 3.5-5.1 [facility] Protein [Mass/Vol] 7.2 g/dL 6.4-8.2 [facility] Sodium [Moles/Vol] 137 mmol/L 136-145 [facility] Urea nitrogen [Mass/Vol] 34.0 mg/dL High 7.0-18.0 [facility] Urea nitrogen/Creatinine [Mass ratio] 9.9 mg/mg [facility] Laboratory - Hematology and Cell countson 09-30-2023 ESR (Bld) [Velocity] 130 mm/h High <=20 [facility] Immature granulocytes/100 WBC (Bld) 0.6 % High 0.0-0.5 [facility] Leukocytes [#/volume] correc jorge for nucleated erythrocytes in Blood by Automated counon 09-30-2023 WBC corrected for nucl RBC Auto (Bld) [#/Vol] 13.9 10 3/uL High 4.0-11.0 [facility] Lymphocytes Auto (Bld) [#/Vo l]on 09-30-2023 Lymphocytes (Bld) [#/Vol] 1.4 10 3/uL 1.2-3.8 [facility] Lymphocytes/100 WBC Auto (Bl d)on 09-30-2023 Lymphocytes/100 WBC (Bld) 10.1 % Low 20.5-60.0 [facility] MCH Auto (RBC) [Entitic mass ]on 09-30-2023 MCH (RBC) [Entitic mass] 22.7 pg Low 25.9-34.0 [facility] MCHC Auto (RBC) [Mass/Vol]on 09-30-2023 MCHC (RBC) [Mass/Vol] 30.4 g/dL 29.9-35.2 [facility] MCV Auto (RBC) [Entitic vol] on 09-30-2023 MCV (RBC) [Entitic vol] 74.6 fL Low 80.0-94.0 [facility] Monocytes Auto (Bld) [#/Vol] on 09-30-2023 Monocytes (Bld) [#/Vol] 0.9 10 3/uL High 0.3-0.8 [facility] Monocytes/100 WBC Auto (Bld) on 09-30-2023 Monocytes/100 WBC (Bld) 6.7 % 1.7-12.0 [facility] Mucus LM Ql (Urine sed)on Mucus Ql (Urine sed) NONE SEEN NONE SEEN [facility] Neutrophils Auto (Bld) [#/Vo l]on 09-30-2023 Neutrophils (Bld) [#/Vol] 11.2 10 3/uL High 1.4-6.5 [facility] Neutrophils/100 WBC Auto (Bl d)on 09-30-2023 Neutrophils/100 WBC (Bld) 80.8 % High 43.0-75.0 [facility] No Panel Informationon 09-29 Troponin I High Sensitivity 7.9 pg/mL 4.0-76.1 [facility] Comment on above: CUT-OFF POINTS HAVE [...] Partial Pressure CO2 29.6 mm[Hg] Low 40.0-52.0 [facility] Venous Blood pH 7.405 7.330-7.43 0 [facility] Urine Culture Reflexed NO [facility] C-Reactive Protein, Quantitative 14.76 mg/dL High <=0.50 [facility] Eosinophils # (Auto) 0.2 10 3/uL 0.0-0.7 [facility] Immature Granulocyte # (Auto) 0.09 10 3/uL High 0.00-0.03 [facility] No Panel InformationOrdered By: Chandrika Castanon on 09-30-2023 Blood Culture 2 [facility] Wound Culture [facility] Blood Culture 1 [facility] Platelet mean volume Auto (B ld) [Entitic vol]on 09-30-2023 Platelet mean volume (Bld) [Entitic vol] 10.9 fL 9.5-13.5 [facility] Platelets Auto (Bld) [#/Vol] on 09-30-2023 Platelets (Bld) [#/Vol] 227 10 3/uL 150-450 [facility] Protein Auto test strip (U) [Mass/Vol]on 09-30-2023 Protein (U) [Mass/Vol] Negative NEG/TRACE [facility] Prothrombin time (PT)on 09-04 PT Coag (PPP) [Time] 12.9 s High 9.0-11.6 [facility] RBC Auto (Bld) [#/Vol]on RBC (Bld) [#/Vol] 4.41 10 6/uL Low 4.70-6.10 [facility] Serum or plasma albumin/glob ulin mass ratioon 09-30-2023 Albumin/Globulin [Mass ratio] 0.5 {ratio} [facility] Serum or plasma anion gap de terminationon 09-30-2023 Anion gap [Moles/Vol] 25.6 mmol/L [facility] Specific gravity Auto test s trip (U) [Rel density]on 09-30-2023 Specific gravity (U) [Rel density] CLEAR CLEAR [facility] Urine bacteria detection by automated methodon 09-30-2023 Bacteria Auto Ql (U) NONE SEEN #/HPF NONE SEEN [facility] Urine glucose measurement by test strip (mass/volume)on 09-30-2023 Glucose Test strip (U) [Mass/Vol] 500 mg/dL Abnormal NEGATIVE [facility] Urine hemoglobin detection b y automated test stripon 09-30-2023 Hemoglobin Auto test strip Ql (U) TRACE-I NEGATIVE [facility] Urine nitrite detection by a utomated test stripon 09-30-2023 Nitrite Auto test strip Ql (U) Negative NEGATIVE [facility] Urine sediment crystal ident ification by light microscopyon 09-30-2023 Crystals LM Nom (Urine sed) None Seen #/HPF None Seen [facility] Urine sediment leukocyte cou nt by microscopy (number/high power field)on 09-30-2023 WBC LM.HPF (Urine sed) [#/Area] NONE SEEN #/HPF NONE SEEN [facility] Urobilinogen Auto test strip (U) [Mass/Vol]on 09-30-2023 Urobilinogen Qn (U) 0.2 {Brendan'U}/dL 0.2-1.0 [facility] pH Auto test strip (U)on pH (U) 5.5 [pH] 5.0-9.0 [facility] Laboratory - Microbiology an d Antimicrobial susceptibilityOrdered By: Teresa Lynch on 09-21-2023 Microscopic observation Gram stain Nom (Unsp spec) [facility] Activated partial thrombopla stin time (aPTT) in platelet poor plasma by coagulation aon 09-18-2023 aPTT Coag (PPP) [Time] 32.0 s 22.3-36.2 [facility] Basophils Auto (Bld) [#/Vol] on 09-18-2023 Basophils (Bld) [#/Vol] 0.1 10 3/uL 0.0-0.1 [facility] Basophils/100 WBC Auto (Bld) on 09-18-2023 Basophils/100 WBC (Bld) 0.9 % 0.2-2.0 [facility] Eosinophils/100 WBC Auto (Bl d)on 09-18-2023 Eosinophils/100 WBC (Bld) 2.3 % 0.9-7.0 [facility] Erythrocyte distribution wid th Auto (RBC) [Ratio]on 09-18-2023 Erythrocyte distribution width (RBC) [Ratio] 18.8 % High 11.0-15.0 [facility] Estimated glomerular filtrat ion rate (GFR) non- Americanon 09-18-2023 GFR/1.73 sq M.predicted among non-blacks MDRD (S/P/Bld) [Vol rate/Area] 27 mL/min/{1.73_m2} Low >=60 [facility] Hematocrit Auto (Bld) [Volum e fraction]on 09-18-2023 Hematocrit (Bld) [Volume fraction] 35.0 % Low 42.0-54.0 [facility] Hemoglobin [Mass/volume] in Bloodon 09-18-2023 Hemoglobin (Bld) [Mass/Vol] 10.3 g/dL Low 14.0-18.0 [facility] INR in Platelet poor plasma by Coagulation assayon 09-18-2023 INR Coag (PPP) [Relative time] 1.08 {INR} [facility] Comment on above: DESIRED INR:2.0-3.0 CONDITIONS NOT LISTED BELOW2.5-3.5 FOR PROSTHETIC HEART VALVE REPLACEMENT2.5-3.5 RECURRENT THROMBOSIS Laboratory - Chemistry and C hemistry - challengeon 09-18-2023 Calcium [Mass/Vol] 8.9 mg/dL 8.5-10.1 [facility] Chloride [Moles/Vol] 97 mmol/L Low 98-107 [facility] CO2 [Moles/Vol] 28.2 mmol/L 21.0-32.0 [facility] Creatinine [Mass/Vol] 2.47 mg/dL High 0.70-1.30 [facility] GFR/1.73 sq M.predicted MDRD (S/P/Bld) [Vol rate/Area] 33 mL/min/{1.73_m2} Low >=60 [facility] Glucose [Mass/Vol] 200 mg/dL High 74-106 [facility] Potassium [Moles/Vol] 3.7 mmol/L 3.5-5.1 [facility] Sodium [Moles/Vol] 137 mmol/L 136-145 [facility] Urea nitrogen [Mass/Vol] 23.0 mg/dL High 7.0-18.0 [facility] Urea nitrogen/Creatinine [Mass ratio] 9.3 mg/mg [facility] Laboratory - Hematology and Cell countson 09-18-2023 Immature granulocytes/100 WBC (Bld) 0.6 % High 0.0-0.5 [facility] Leukocytes [#/volume] correc jorge for nucleated erythrocytes in Blood by Automated counon 09-18-2023 WBC corrected for nucl RBC Auto (Bld) [#/Vol] 12.4 10 3/uL High 4.0-11.0 [facility] Lymphocytes Auto (Bld) [#/Vo l]on 09-18-2023 Lymphocytes (Bld) [#/Vol] 2.4 10 3/uL 1.2-3.8 [facility] Lymphocytes/100 WBC Auto (Bl d)on 09-18-2023 Lymphocytes/100 WBC (Bld) 19.6 % Low 20.5-60.0 [facility] MCH Auto (RBC) [Entitic mass ]on 09-18-2023 MCH (RBC) [Entitic mass] 22.2 pg Low 25.9-34.0 [facility] MCHC Auto (RBC) [Mass/Vol]on 09-18-2023 MCHC (RBC) [Mass/Vol] 29.4 g/dL Low 29.9-35.2 [facility] MCV Auto (RBC) [Entitic vol] on 09-18-2023 MCV (RBC) [Entitic vol] 75.3 fL Low 80.0-94.0 [facility] Monocytes Auto (Bld) [#/Vol] on 09-18-2023 Monocytes (Bld) [#/Vol] 1.2 10 3/uL High 0.3-0.8 [facility] Monocytes/100 WBC Auto (Bld) on 09-18-2023 Monocytes/100 WBC (Bld) 10.0 % 1.7-12.0 [facility] Neutrophils Auto (Bld) [#/Vo l]on 09-18-2023 Neutrophils (Bld) [#/Vol] 8.2 10 3/uL High 1.4-6.5 [facility] Neutrophils/100 WBC Auto (Bl d)on 09-18-2023 Neutrophils/100 WBC (Bld) 66.6 % 43.0-75.0 [facility] No Panel Informationon 09-17 Eosinophils # (Auto) 0.3 10 3/uL 0.0-0.7 [facility] Immature Granulocyte # (Auto) 0.07 10 3/uL High 0.00-0.03 [facility] Platelet mean volume Auto (B ld) [Entitic vol]on 09-18-2023 Platelet mean volume (Bld) [Entitic vol] 10.9 fL 9.5-13.5 [facility] Platelets Auto (Bld) [#/Vol] on 09-18-2023 Platelets (Bld) [#/Vol] 300 10 3/uL 150-450 [facility] Prothrombin time (PT)on 09-03 PT Coag (PPP) [Time] 11.4 s 9.0-11.6 [facility] RBC Auto (Bld) [#/Vol]on RBC (Bld) [#/Vol] 4.65 10 6/uL Low 4.70-6.10 [facility] Serum or plasma anion gap de terminationon 09-18-2023 Anion gap [Moles/Vol] 15.5 mmol/L [facility] - Microbiology an d Antimicrobial susceptibilityOrdered By: Teresa Lynch on 08-10-2023 Microscopic observation Gram stain Nom (Unsp spec) [facility] No Panel Informationon 08-09 Fungal Smear Result [facility] Miscellaneous Test Comment See comment [facility] Comment on above: Specimen Source: JONO TRT - Foot Right - Foot Rt - 604.000 No Panel InformationOrdered By: Teresa Lynch on 08-10-2023 Acid Fast Culture [facility] Acid Fast Smear [facility] AFB Specimen Processing [facility] Tissue Culture [facility] Basophils Auto (Bld) [#/Vol] on 08-07-2023 Basophils (Bld) [#/Vol] 0.1 10 3/uL 0.0-0.1 [facility] Basophils/100 WBC Auto (Bld) on 08-07-2023 Basophils/100 WBC (Bld) 0.7 % 0.2-2.0 [facility] Eosinophils/100 WBC Auto (Bl d)on 08-07-2023 Eosinophils/100 WBC (Bld) 3.9 % 0.9-7.0 [facility] Erythrocyte distribution wid th Auto (RBC) [Ratio]on 08-07-2023 Erythrocyte distribution width (RBC) [Ratio] 16.9 % 11.0-15.0 [facility] Estimated glomerular filtrat ion rate (GFR) non- Americanon 08-07-2023 GFR/1.73 sq M.predicted among non-blacks MDRD (S/P/Bld) [Vol rate/Area] 42 mL/min/{1.73_m2} >=60 [facility] Globulin Calc (S) [Mass/Vol] on 08-07-2023 Globulin (S) [Mass/Vol] 4.0 g/dL [facility] Hematocrit Auto (Bld) [Volum e fraction]on 08-07-2023 Hematocrit (Bld) [Volume fraction] 31.5 % 42.0-54.0 [facility] Hemoglobin [Mass/volume] in Bloodon 08-07-2023 Hemoglobin (Bld) [Mass/Vol] 9.4 g/dL 14.0-18.0 [facility] Laboratory - Chemistry and C hemistry - challengeon 08-07-2023 Albumin [Mass/Vol] 2.1 g/dL 3.4-5.0 [facility] ALP [Catalytic activity/Vol] 144 U/L 46-116 [facility] ALT [Catalytic activity/Vol] 21 U/L 16-63 [facility] AST [Catalytic activity/Vol] 25 U/L 15-37 [facility] Bilirubin [Mass/Vol] 0.4 mg/dL 0.2-1.0 [facility] Calcium [Mass/Vol] 8.1 mg/dL 8.5-10.1 [facility] Chloride [Moles/Vol] 102 mmol/L 98-107 [facility] CO2 [Moles/Vol] 24.7 mmol/L 21.0-32.0 [facility] Creatinine [Mass/Vol] 1.70 mg/dL 0.70-1.30 [facility] GFR/1.73 sq M.predicted MDRD (S/P/Bld) [Vol rate/Area] 50 mL/min/{1.73_m2} >=60 [facility] Glucose [Mass/Vol] 188 mg/dL 74-106 [facility] Potassium [Moles/Vol] 4.6 mmol/L 3.5-5.1 [facility] Protein [Mass/Vol] 6.1 g/dL 6.4-8.2 [facility] Sodium [Moles/Vol] 135 mmol/L 136-145 [facility] Urea nitrogen [Mass/Vol] 33.0 mg/dL 7.0-18.0 [facility] Urea nitrogen/Creatinine [Mass ratio] 19.4 mg/mg [facility] Laboratory - Hematology and Cell countson 08-07-2023 Immature granulocytes/100 WBC (Bld) 0.7 % 0.0-0.5 [facility] Leukocytes [#/volume] correc jorge for nucleated erythrocytes in Blood by Automated counon 08-07-2023 WBC corrected for nucl RBC Auto (Bld) [#/Vol] 12.0 10 3/uL 4.0-11.0 [facility] Lymphocytes Auto (Bld) [#/Vo l]on 08-07-2023 Lymphocytes (Bld) [#/Vol] 1.5 10 3/uL 1.2-3.8 [facility] Lymphocytes/100 WBC Auto (Bl d)on 08-07-2023 Lymphocytes/100 WBC (Bld) 12.4 % 20.5-60.0 [facility] MCH Auto (RBC) [Entitic mass ]on 08-07-2023 MCH (RBC) [Entitic mass] 22.5 pg 25.9-34.0 [facility] MCHC Auto (RBC) [Mass/Vol]on 08-07-2023 MCHC (RBC) [Mass/Vol] 29.8 g/dL 29.9-35.2 [facility] MCV Auto (RBC) [Entitic vol] on 08-07-2023 MCV (RBC) [Entitic vol] 75.4 fL 80.0-94.0 [facility] Monocytes Auto (Bld) [#/Vol] on 08-07-2023 Monocytes (Bld) [#/Vol] 1.2 10 3/uL 0.3-0.8 [facility] Monocytes/100 WBC Auto (Bld) on 08-07-2023 Monocytes/100 WBC (Bld) 10.1 % 1.7-12.0 [facility] Neutrophils Auto (Bld) [#/Vo l]on 08-07-2023 Neutrophils (Bld) [#/Vol] 8.7 10 3/uL 1.4-6.5 [facility] Neutrophils/100 WBC Auto (Bl d)on 08-07-2023 Neutrophils/100 WBC (Bld) 72.2 % 43.0-75.0 [facility] No Panel Informationon 08-06 Eosinophils # (Auto) 0.5 10 3/uL 0.0-0.7 [facility] Immature Granulocyte # (Auto) 0.09 10 3/uL 0.00-0.03 [facility] Platelet mean volume Auto (B ld) [Entitic vol]on 08-07-2023 Platelet mean volume (Bld) [Entitic vol] 11.7 fL 9.5-13.5 [facility] Platelets Auto (Bld) [#/Vol] on 08-07-2023 Platelets (Bld) [#/Vol] 222 10 3/uL 150-450 [facility] RBC Auto (Bld) [#/Vol]on RBC (Bld) [#/Vol] 4.18 10 6/uL 4.70-6.10 [facility] Serum or plasma albumin/glob ulin mass ratioon 08-07-2023 Albumin/Globulin [Mass ratio] 0.5 {ratio} [facility] Serum or plasma anion gap de terminationon 08-07-2023 Anion gap [Moles/Vol] 12.9 mmol/L Fi [facility] Basophils Auto (Bld) [#/Vol] on 08-06-2023 Basophils (Bld) [#/Vol] 0.1 10 3/uL 0.0-0.1 [facility] Basophils/100 WBC Auto (Bld) on 08-06-2023 Basophils/100 WBC (Bld) 0.7 % 0.2-2.0 [facility] Eosinophils/100 WBC Auto (Bl d)on 08-06-2023 Eosinophils/100 WBC (Bld) 3.3 % 0.9-7.0 [facility] Erythrocyte distribution wid th Auto (RBC) [Ratio]on 08-06-2023 Erythrocyte distribution width (RBC) [Ratio] 17.0 % 11.0-15.0 [facility] Estimated glomerular filtrat ion rate (GFR) non- Americanon 08-06-2023 GFR/1.73 sq M.predicted among non-blacks MDRD (S/P/Bld) [Vol rate/Area] 36 mL/min/{1.73_m2} >=60 [facility] Globulin Calc (S) [Mass/Vol] on 08-06-2023 Globulin (S) [Mass/Vol] 4.0 g/dL [facility] Hematocrit Auto (Bld) [Volum e fraction]on 08-06-2023 Hematocrit (Bld) [Volume fraction] 30.1 % 42.0-54.0 [facility] Hemoglobin [Mass/volume] in Bloodon 08-06-2023 Hemoglobin (Bld) [Mass/Vol] 8.8 g/dL 14.0-18.0 [facility] Laboratory - Chemistry and C hemistry - challengeon 08-06-2023 Albumin [Mass/Vol] 2.0 g/dL 3.4-5.0 [facility] ALP [Catalytic activity/Vol] 127 U/L 46-116 [facility] ALT [Catalytic activity/Vol] 14 U/L 16-63 [facility] AST [Catalytic activity/Vol] 16 U/L 15-37 [facility] Bilirubin [Mass/Vol] 0.4 mg/dL 0.2-1.0 [facility] Calcium [Mass/Vol] 7.9 mg/dL 8.5-10.1 [facility] Chloride [Moles/Vol] 99 mmol/L 98-107 [facility] CO2 [Moles/Vol] 25.0 mmol/L 21.0-32.0 [facility] Creatinine [Mass/Vol] 1.95 mg/dL 0.70-1.30 [facility] GFR/1.73 sq M.predicted MDRD (S/P/Bld) [Vol rate/Area] 43 mL/min/{1.73_m2} >=60 [facility] Glucose [Mass/Vol] 297 mg/dL 74-106 [facility] Potassium [Moles/Vol] 4.4 mmol/L 3.5-5.1 [facility] Protein [Mass/Vol] 6.0 g/dL 6.4-8.2 [facility] Sodium [Moles/Vol] 133 mmol/L 136-145 [facility] Urea nitrogen [Mass/Vol] 28.0 mg/dL 7.0-18.0 [facility] Urea nitrogen/Creatinine [Mass ratio] 14.4 mg/mg [facility] Laboratory - Hematology and Cell countson 08-06-2023 Immature granulocytes/100 WBC (Bld) 0.4 % 0.0-0.5 [facility] Leukocytes [#/volume] correc jorge for nucleated erythrocytes in Blood by Automated counon 08-06-2023 WBC corrected for nucl RBC Auto (Bld) [#/Vol] 10.1 10 3/uL 4.0-11.0 [facility] Lymphocytes Auto (Bld) [#/Vo l]on 08-06-2023 Lymphocytes (Bld) [#/Vol] 1.5 10 3/uL 1.2-3.8 [facility] Lymphocytes/100 WBC Auto (Bl d)on 08-06-2023 Lymphocytes/100 WBC (Bld) 14.4 % 20.5-60.0 [facility] MCH Auto (RBC) [Entitic mass ]on 08-06-2023 MCH (RBC) [Entitic mass] 22.5 pg 25.9-34.0 [facility] MCHC Auto (RBC) [Mass/Vol]on 08-06-2023 MCHC (RBC) [Mass/Vol] 29.2 g/dL 29.9-35.2 [facility] MCV Auto (RBC) [Entitic vol] on 08-06-2023 MCV (RBC) [Entitic vol] 77.0 fL 80.0-94.0 [facility] Monocytes Auto (Bld) [#/Vol] on 08-06-2023 Monocytes (Bld) [#/Vol] 1.1 10 3/uL 0.3-0.8 [facility] Monocytes/100 WBC Auto (Bld) on 08-06-2023 Monocytes/100 WBC (Bld) 10.4 % 1.7-12.0 [facility] Neutrophils Auto (Bld) [#/Vo l]on 08-06-2023 Neutrophils (Bld) [#/Vol] 7.2 10 3/uL 1.4-6.5 [facility] Neutrophils/100 WBC Auto (Bl d)on 08-06-2023 Neutrophils/100 WBC (Bld) 70.8 % 43.0-75.0 [facility] No Panel Informationon 08-05 Vancomycin Level Trough 13.6 ug/mL 5.0-20.0 [facility] Eosinophils # (Auto) 0.3 10 3/uL 0.0-0.7 [facility] Immature Granulocyte # (Auto) 0.04 10 3/uL 0.00-0.03 [facility] Platelet mean volume Auto (B ld) [Entitic vol]on 08-06-2023 Platelet mean volume (Bld) [Entitic vol] 12.2 fL 9.5-13.5 [facility] Platelets Auto (Bld) [#/Vol] on 08-06-2023 Platelets (Bld) [#/Vol] 190 10 3/uL 150-450 [facility] RBC Auto (Bld) [#/Vol]on RBC (Bld) [#/Vol] 3.91 10 6/uL 4.70-6.10 [facility] Serum or plasma albumin/glob ulin mass ratioon 08-06-2023 Albumin/Globulin [Mass ratio] 0.5 {ratio} [facility] Serum or plasma anion gap de terminationon 08-06-2023 Anion gap [Moles/Vol] 13.4 mmol/L [facility] Automated epithelial cells c ount in urine sediment (number/area)on 08-05-2023 Epithelial cells Auto (Urine sed) [#/Area] RARE #/LPF NONE/RARE [facility] Automated leukocytes count i n urine sediment (number/area)on 08-05-2023 WBC Auto (Urine sed) [#/Area] NONE SEEN #/HPF 0-2 [facility] Automated urine specific gra vity by refractometryon 08-05-2023 Specific gravity Refractometry automated (U) [Rel density] <=1.005 1.005-1.02 5 [facility] Basophils Auto (Bld) [#/Vol] on 08-05-2023 Basophils (Bld) [#/Vol] 0.1 10 3/uL 0.0-0.1 [facility] Basophils/100 WBC Auto (Bld) on 08-05-2023 Basophils/100 WBC (Bld) 0.7 % 0.2-2.0 [facility] Bilirubin Auto test strip (U ) [Mass/Vol]on 08-05-2023 Bilirubin (U) [Mass/Vol] Negative NEGATIVE [facility] Casts typing in urine sedime nt by light microscopyon 08-05-2023 Casts LM Nom (Urine sed) NONE SEEN #/LPF NONE SEEN [facility] Color Auto (U)on 08-05-2023 Color (U) LT. YELLOW YELLOW [facility] Eosinophils/100 WBC Auto (Bl d)on 08-05-2023 Eosinophils/100 WBC (Bld) 2.5 % 0.9-7.0 [facility] Erythrocyte distribution wid th Auto (RBC) [Ratio]on 08-05-2023 Erythrocyte distribution width (RBC) [Ratio] 16.8 % 11.0-15.0 [facility] Estimated glomerular filtrat ion rate (GFR) non- Americanon 08-05-2023 GFR/1.73 sq M.predicted among non-blacks MDRD (S/P/Bld) [Vol rate/Area] 42 mL/min/{1.73_m2} >=60 [facility] Globulin Calc (S) [Mass/Vol] on 08-05-2023 Globulin (S) [Mass/Vol] 4.1 g/dL [facility] Glucose mean value [Mass/vol ume] in Blood Estimated from glycated hemoglobinon 08-05-2023 Average glucose Estimated from glycated hemoglobin (Bld) [Mass/Vol] 214 mg/dL [facility] Hematocrit Auto (Bld) [Volum e fraction]on 08-05-2023 Hematocrit (Bld) [Volume fraction] 31.8 % 42.0-54.0 [facility] Hemoglobin [Mass/volume] in Bloodon 08-05-2023 Hemoglobin (Bld) [Mass/Vol] 9.4 g/dL 14.0-18.0 [facility] Ketones Auto test strip (U) [Mass/Vol]on 08-05-2023 Ketones (U) [Mass/Vol] Negative NEGATIVE [facility] - Chemistry and C hemistry - challengeon 08-05-2023 Albumin [Mass/Vol] 2.3 g/dL 3.4-5.0 [facility] ALP [Catalytic activity/Vol] 111 U/L 46-116 [facility] ALT [Catalytic activity/Vol] 11 U/L 16-63 [facility] AST [Catalytic activity/Vol] 11 U/L 15-37 [facility] Bilirubin [Mass/Vol] 0.5 mg/dL 0.2-1.0 [facility] Calcium [Mass/Vol] 8.1 mg/dL 8.5-10.1 [facility] Chloride [Moles/Vol] 101 mmol/L 98-107 [facility] CO2 [Moles/Vol] 25.6 mmol/L 21.0-32.0 [facility] Creatinine [Mass/Vol] 1.68 mg/dL 0.70-1.30 [facility] GFR/1.73 sq M.predicted MDRD (S/P/Bld) [Vol rate/Area] 51 mL/min/{1.73_m2} >=60 [facility] Glucose [Mass/Vol] 111 mg/dL 74-106 [facility] Potassium [Moles/Vol] 3.7 mmol/L 3.5-5.1 [facility] Protein [Mass/Vol] 6.4 g/dL 6.4-8.2 [facility] Sodium [Moles/Vol] 138 mmol/L 136-145 [facility] Urea nitrogen [Mass/Vol] 17.0 mg/dL 7.0-18.0 [facility] Urea nitrogen/Creatinine [Mass ratio] 10.1 mg/mg [facility] Laboratory - Hematology and Cell countson 08-05-2023 HbA1c (Bld) [Mass fraction] 9.1 % 4.5-6.2 [facility] Comment on above: ADA RECOMMENDED LIMI T 4.0 - 6.0ADA THERAPEUTIC TARGET < 7.0ACTION SUGGESTED> 7.0 Immature granulocytes/100 WBC (Bld) 0.4 % 0.0-0.5 [facility] Laboratory - Microbiology an d Antimicrobial susceptibilityOrdered By: Teresa Lynch on 08-05-2023 Microscopic observation Gram stain Nom (Unsp spec) [facility] Leukocytes [#/volume] correc jorge for nucleated erythrocytes in Blood by Automated counon 08-05-2023 WBC corrected for nucl RBC Auto (Bld) [#/Vol] 12.3 10 3/uL 4.0-11.0 [facility] Lymphocytes Auto (Bld) [#/Vo l]on 08-05-2023 Lymphocytes (Bld) [#/Vol] 1.5 10 3/uL 1.2-3.8 [facility] Lymphocytes/100 WBC Auto (Bl d)on 08-05-2023 Lymphocytes/100 WBC (Bld) 11.8 % 20.5-60.0 [facility] MCH Auto (RBC) [Entitic mass ]on 08-05-2023 MCH (RBC) [Entitic mass] 22.4 pg 25.9-34.0 [facility] MCHC Auto (RBC) [Mass/Vol]on 08-05-2023 MCHC (RBC) [Mass/Vol] 29.6 g/dL 29.9-35.2 [facility] MCV Auto (RBC) [Entitic vol] on 08-05-2023 MCV (RBC) [Entitic vol] 75.9 fL 80.0-94.0 [facility] Monocytes Auto (Bld) [#/Vol] on 08-05-2023 Monocytes (Bld) [#/Vol] 1.3 10 3/uL 0.3-0.8 [facility] Monocytes/100 WBC Auto (Bld) on 08-05-2023 Monocytes/100 WBC (Bld) 10.7 % 1.7-12.0 [facility] Mucus LM Ql (Urine sed)on Mucus Ql (Urine sed) NONE SEEN NONE SEEN [facility] Neutrophils Auto (Bld) [#/Vo l]on 08-05-2023 Neutrophils (Bld) [#/Vol] 9.1 10 3/uL 1.4-6.5 [facility] Neutrophils/100 WBC Auto (Bl d)on 08-05-2023 Neutrophils/100 WBC (Bld) 73.9 % 43.0-75.0 [facility] No Panel Informationon 08-04 Eosinophils # (Auto) 0.3 10 3/uL 0.0-0.7 [facility] Immature Granulocyte # (Auto) 0.05 10 3/uL 0.00-0.03 [facility] Platelet mean volume Auto (B ld) [Entitic vol]on 08-05-2023 Platelet mean volume (Bld) [Entitic vol] 11.2 fL 9.5-13.5 [facility] Platelets Auto (Bld) [#/Vol] on 08-05-2023 Platelets (Bld) [#/Vol] 184 10 3/uL 150-450 [facility] Protein Auto test strip (U) [Mass/Vol]on 08-05-2023 Protein (U) [Mass/Vol] Negative NEG/TRACE [facility] RBC Auto (Bld) [#/Vol]on RBC (Bld) [#/Vol] 4.19 10 6/uL 4.70-6.10 [facility] Serum or plasma albumin/glob ulin mass ratioon 08-05-2023 Albumin/Globulin [Mass ratio] 0.6 {ratio} [facility] Serum or plasma anion gap de terminationon 08-05-2023 Anion gap [Moles/Vol] 15.1 mmol/L [facility] Specific gravity Auto test s trip (U) [Rel density]on 08-05-2023 Specific gravity (U) [Rel density] CLEAR CLEAR [facility] Urine bacteria detection by automated methodon 08-05-2023 Bacteria Auto Ql (U) TRACE #/HPF NONE SEEN [facility] Urine glucose measurement by test strip (mass/volume)on 08-05-2023 Glucose Test strip (U) [Mass/Vol] >=1000 mg/dL NEGATIVE [facility] Urine hemoglobin detection b y automated test stripon 08-05-2023 Hemoglobin Auto test strip Ql (U) Negative NEGATIVE [facility] Urine nitrite detection by a utomated test stripon 08-05-2023 Nitrite Auto test strip Ql (U) Negative NEGATIVE [facility] Urine sediment crystal ident ification by light microscopyon 03-02-2024 Crystals LM Nom (Urine sed) None Seen #/HPF None Seen [facility] Urine sediment leukocyte cou nt by microscopy (number/high power field)on 08-05-2023 WBC LM.HPF (Urine sed) [#/Area] NONE SEEN #/HPF NONE SEEN [facility] Urobilinogen Auto test strip (U) [Mass/Vol]on 08-05-2023 Urobilinogen Qn (U) 0.2 {Brendan'U}/dL 0.2-1.0 [facility] pH Auto test strip (U)on pH (U) 6.0 [pH] 5.0-9.0 [facility] Basophils Auto (Bld) [#/Vol] on 08-04-2023 Basophils (Bld) [#/Vol] 0.1 10 3/uL 0.0-0.1 [facility] Basophils/100 WBC Auto (Bld) on 08-04-2023 Basophils/100 WBC (Bld) 0.8 % 0.2-2.0 [facility] Eosinophils/100 WBC Auto (Bl d)on 08-04-2023 Eosinophils/100 WBC (Bld) 2.8 % 0.9-7.0 [facility] Erythrocyte distribution wid th Auto (RBC) [Ratio]on 08-04-2023 Erythrocyte distribution width (RBC) [Ratio] 16.9 % 11.0-15.0 [facility] Estimated glomerular filtrat ion rate (GFR) non- Americanon 08-04-2023 GFR/1.73 sq M.predicted among non-blacks MDRD (S/P/Bld) [Vol rate/Area] 33 mL/min/{1.73_m2} >=60 [facility] Globulin Calc (S) [Mass/Vol] on 08-04-2023 Globulin (S) [Mass/Vol] 4.4 g/dL [facility] Hematocrit Auto (Bld) [Volum e fraction]on 08-04-2023 Hematocrit (Bld) [Volume fraction] 32.6 % 42.0-54.0 [facility] Hemoglobin [Mass/volume] in Bloodon 08-04-2023 Hemoglobin (Bld) [Mass/Vol] 9.6 g/dL 14.0-18.0 [facility] INR in Platelet poor plasma by Coagulation assayon 08-04-2023 INR Coag (PPP) [Relative time] 1.05 {INR} [facility] Comment on above: DESIRED INR:2.0-3.0 CONDITIONS NOT LISTED BELOW2.5-3.5 FOR PROSTHETIC HEART VALVE REPLACEMENT2.5-3.5 RECURRENT THROMBOSIS Laboratory - Chemistry and C hemistry - challengeon 08-04-2023 Albumin [Mass/Vol] 2.4 g/dL 3.4-5.0 [facility] ALP [Catalytic activity/Vol] 109 U/L 46-116 [facility] ALT [Catalytic activity/Vol] 9 U/L 16-63 [facility] AST [Catalytic activity/Vol] U/L 15-37 [facility] Bilirubin [Mass/Vol] 0.4 mg/dL 0.2-1.0 [facility] Calcium [Mass/Vol] 8.0 mg/dL 8.5-10.1 [facility] Chloride [Moles/Vol] 96 mmol/L 98-107 [facility] CO2 [Moles/Vol] 29.2 mmol/L 21.0-32.0 [facility] Creatinine [Mass/Vol] 2.06 mg/dL 0.70-1.30 [facility] GFR/1.73 sq M.predicted MDRD (S/P/Bld) [Vol rate/Area] 40 mL/min/{1.73_m2} >=60 [facility] Glucose [Mass/Vol] 329 mg/dL 74-106 [facility] Potassium [Moles/Vol] 3.5 mmol/L 3.5-5.1 [facility] Protein [Mass/Vol] 6.8 g/dL 6.4-8.2 [facility] Sodium [Moles/Vol] 132 mmol/L 136-145 [facility] Urea nitrogen [Mass/Vol] 20.0 mg/dL 7.0-18.0 [facility] Urea nitrogen/Creatinine [Mass ratio] 9.7 mg/mg [facility] - Hematology and Cell countson 08-04-2023 ESR (Bld) [Velocity] 89 mm/h <=20 [facility] Immature granulocytes/100 WBC (Bld) 0.3 % 0.0-0.5 [facility] - Microbiology an d Antimicrobial susceptibilityOrdered By: Teresa Lynch on 08-04-2023 Microscopic observation Gram stain Nom (Unsp spec) [facility] Leukocytes [#/volume] correc jorge for nucleated erythrocytes in Blood by Automated counon 08-04-2023 WBC corrected for nucl RBC Auto (Bld) [#/Vol] 11.6 10 3/uL 4.0-11.0 [facility] Lymphocytes Auto (Bld) [#/Vo l]on 08-04-2023 Lymphocytes (Bld) [#/Vol] 1.7 10 3/uL 1.2-3.8 [facility] Lymphocytes/100 WBC Auto (Bl d)on 08-04-2023 Lymphocytes/100 WBC (Bld) 14.9 % 20.5-60.0 [facility] MCH Auto (RBC) [Entitic mass ]on 08-04-2023 MCH (RBC) [Entitic mass] 22.3 pg 25.9-34.0 [facility] MCHC Auto (RBC) [Mass/Vol]on 08-04-2023 MCHC (RBC) [Mass/Vol] 29.4 g/dL 29.9-35.2 [facility] MCV Auto (RBC) [Entitic vol] on 08-04-2023 MCV (RBC) [Entitic vol] 75.8 fL 80.0-94.0 [facility] Monocytes Auto (Bld) [#/Vol] on 08-04-2023 Monocytes (Bld) [#/Vol] 1.2 10 3/uL 0.3-0.8 [facility] Monocytes/100 WBC Auto (Bld) on 08-04-2023 Monocytes/100 WBC (Bld) 10.4 % 1.7-12.0 [facility] Neutrophils Auto (Bld) [#/Vo l]on 08-04-2023 Neutrophils (Bld) [#/Vol] 8.2 10 3/uL 1.4-6.5 [facility] Neutrophils/100 WBC Auto (Bl d)on 08-04-2023 Neutrophils/100 WBC (Bld) 70.8 % 43.0-75.0 [facility] No Panel InformationOrdered By: Teresa Lynch on 08-04-2023 Blood Culture 2 [facility] Blood Culture 1 [facility] Wound Culture [facility] No Panel Informationon 08-03 Aerobic & Anaerobic Susceptibility [facility] Miscellaneous Test Comment See comment [facility] Comment on above: Specimen Source: JONO T - Foot - Foot - 603.950 C-Reactive Protein, Quantitative 11.62 mg/dL <=0.50 [facility] Eosinophils # (Auto) 0.3 10 3/uL 0.0-0.7 [facility] Immature Granulocyte # (Auto) 0.04 10 3/uL 0.00-0.03 [facility] Platelet mean volume Auto (B ld) [Entitic vol]on 08-04-2023 Platelet mean volume (Bld) [Entitic vol] 11.5 fL 9.5-13.5 [facility] Platelets Auto (Bld) [#/Vol] on 08-04-2023 Platelets (Bld) [#/Vol] 206 10 3/uL 150-450 [facility] Prothrombin time (PT)on PT Coag (PPP) [Time] 11.1 s 9.0-11.6 [facility] RBC Auto (Bld) [#/Vol]on RBC (Bld) [#/Vol] 4.30 10 6/uL 4.70-6.10 [facility] Serum or plasma albumin/glob ulin mass ratioon 08-04-2023 Albumin/Globulin [Mass ratio] 0.5 {ratio} [facility] Serum or plasma anion gap de terminationon 08-04-2023 Anion gap [Moles/Vol] 10.3 mmol/L [facility] Serum procalcitonin measurem enton 08-04-2023 Procalcitonin [Mass/Vol] 0.10 ng/mL 0.00-0.50 [facility] Basophils Auto (Bld) [#/Vol] on 08-03-2023 Basophils (Bld) [#/Vol] 0.1 10 3/uL 0.0-0.1 [facility] Basophils/100 WBC Auto (Bld) on 08-03-2023 Basophils/100 WBC (Bld) 0.7 % 0.2-2.0 [facility] Eosinophils/100 WBC Auto (Bl d)on 08-03-2023 Eosinophils/100 WBC (Bld) 1.8 % 0.9-7.0 [facility] Erythrocyte distribution wid th Auto (RBC) [Ratio]on 08-03-2023 Erythrocyte distribution width (RBC) [Ratio] 17.0 % 11.0-15.0 [facility] Estimated glomerular filtrat ion rate (GFR) non- Americanon 08-03-2023 GFR/1.73 sq M.predicted among non-blacks MDRD (S/P/Bld) [Vol rate/Area] 27 mL/min/{1.73_m2} >=60 [facility] Globulin Calc (S) [Mass/Vol] on 08-03-2023 Globulin (S) [Mass/Vol] 5.0 g/dL [facility] Hematocrit Auto (Bld) [Volum e fraction]on 08-03-2023 Hematocrit (Bld) [Volume fraction] 38.9 % 42.0-54.0 [facility] Hemoglobin [Mass/volume] in Bloodon 08-03-2023 Hemoglobin (Bld) [Mass/Vol] 11.8 g/dL 14.0-18.0 [facility] Laboratory - Chemistry and C hemistry - challengeon 08-03-2023 Lactate [Moles/Vol] 1.6 mmol/L 0.4-2.0 [facility] Albumin [Mass/Vol] 3.3 g/dL 3.4-5.0 [facility] ALP [Catalytic activity/Vol] 134 U/L 46-116 [facility] ALT [Catalytic activity/Vol] 13 U/L 16-63 [facility] AST [Catalytic activity/Vol] U/L 15-37 [facility] Bilirubin [Mass/Vol] 0.6 mg/dL 0.2-1.0 [facility] Calcium [Mass/Vol] 9.3 mg/dL 8.5-10.1 [facility] Chloride [Moles/Vol] 92 mmol/L 98-107 [facility] CO2 [Moles/Vol] 31.0 mmol/L 21.0-32.0 [facility] Creatinine [Mass/Vol] 2.45 mg/dL 0.70-1.30 [facility] GFR/1.73 sq M.predicted MDRD (S/P/Bld) [Vol rate/Area] 33 mL/min/{1.73_m2} >=60 [facility] Glucose [Mass/Vol] 310 mg/dL 74-106 [facility] Potassium [Moles/Vol] 3.7 mmol/L 3.5-5.1 [facility] Protein [Mass/Vol] 8.3 g/dL 6.4-8.2 [facility] Sodium [Moles/Vol] 133 mmol/L 136-145 [facility] Urea nitrogen [Mass/Vol] 23.0 mg/dL 7.0-18.0 [facility] Urea nitrogen/Creatinine [Mass ratio] 9.4 mg/mg [facility] Laboratory - Hematology and Cell countson 08-03-2023 ESR (Bld) [Velocity] 118 mm/h <=20 [facility] Immature granulocytes/100 WBC (Bld) 0.4 % 0.0-0.5 [facility] Leukocytes [#/volume] correc jorge for nucleated erythrocytes in Blood by Automated counon 08-03-2023 WBC corrected for nucl RBC Auto (Bld) [#/Vol] 14.6 10 3/uL 4.0-11.0 [facility] Lymphocytes Auto (Bld) [#/Vo l]on 08-03-2023 Lymphocytes (Bld) [#/Vol] 2.1 10 3/uL 1.2-3.8 [facility] Lymphocytes/100 WBC Auto (Bl d)on 08-03-2023 Lymphocytes/100 WBC (Bld) 14.3 % 20.5-60.0 [facility] MCH Auto (RBC) [Entitic mass ]on 08-03-2023 MCH (RBC) [Entitic mass] 22.6 pg 25.9-34.0 [facility] MCHC Auto (RBC) [Mass/Vol]on 08-03-2023 MCHC (RBC) [Mass/Vol] 30.3 g/dL 29.9-35.2 [facility] MCV Auto (RBC) [Entitic vol] on 08-03-2023 MCV (RBC) [Entitic vol] 74.4 fL 80.0-94.0 [facility] Monocytes Auto (Bld) [#/Vol] on 08-03-2023 Monocytes (Bld) [#/Vol] 1.4 10 3/uL 0.3-0.8 [facility] Monocytes/100 WBC Auto (Bld) on 08-03-2023 Monocytes/100 WBC (Bld) 9.4 % 1.7-12.0 [facility] Neutrophils Auto (Bld) [#/Vo l]on 08-03-2023 Neutrophils (Bld) [#/Vol] 10.7 10 3/uL 1.4-6.5 [facility] Neutrophils/100 WBC Auto (Bl d)on 08-03-2023 Neutrophils/100 WBC (Bld) 73.4 % 43.0-75.0 [facility] No Panel Informationon C-Reactive Protein, Quantitative 14.63 mg/dL <=0.50 [facility] Eosinophils # (Auto) 0.3 10 3/uL 0.0-0.7 [facility] Immature Granulocyte # (Auto) 0.06 10 3/uL 0.00-0.03 [facility] Venous Blood Partial Pressure CO2 44.8 mm[Hg] 40.0-52.0 [facility] Venous Blood pH 7.432 7.330-7.43 0 [facility] No Panel InformationOrdered By: Teresa Lynch on 08-03-2023 Blood Culture 2 [facility] Blood Culture 1 [facility] Platelet mean volume Auto (B ld) [Entitic vol]on 08-03-2023 Platelet mean volume (Bld) [Entitic vol] 11.4 fL 9.5-13.5 [facility] Platelets Auto (Bld) [#/Vol] on 08-03-2023 Platelets (Bld) [#/Vol] 252 10 3/uL 150-450 [facility] RBC Auto (Bld) [#/Vol]on RBC (Bld) [#/Vol] 5.23 10 6/uL 4.70-6.10 [facility] Serum or plasma albumin/glob ulin mass ratioon 08-03-2023 Albumin/Globulin [Mass ratio] 0.7 {ratio} [facility] Serum or plasma anion gap de terminationon 08-03-2023 Anion gap [Moles/Vol] 13.7 mmol/L [facility] Activated partial thrombopla stin time (aPTT) in platelet poor plasma by coagulation aOrdered By: Abdullahi Wilson on 07-12-2023 aPTT Coag (PPP) [Time] 29.4 s 25.1-36.5 [facility] Comment on above: A hematocrit value g reater than 55% may lead to inaccurate results in coagulation testing. Patients having hematocrit values >55% require a special collection tube for coagulation studies. Please contact the laboratory at [phone] for redraw instructions. Alanine aminotransferase [En zymatic activity/volume] in Serum or PlasmaOrdered By: Abdullahi Wilson on 07-12-2023 ALT [Catalytic activity/Vol] 9 U/L 7-52 [facility] Albumin [Mass/volume] in Ser um or Plasma by Bromocresol green (BCG) dye binding methoOrdered By: Abdullahi Wilson on 07-12-2023 Albumin BCG dye [Mass/Vol] 3.9 g/dL 3.5-5.7 [facility] Alkaline phosphatase [Enzyma tic activity/volume] in Serum or PlasmaOrdered By: Abdullahi Wilson on 07-12-2023 ALP [Catalytic activity/Vol] 106 U/L 34-104 [facility] Aspartate aminotransferase [ Enzymatic activity/volume] in Serum or PlasmaOrdered By: Abdullahi Wilson on 07-12-2023 AST [Catalytic activity/Vol] 8 U/L 13-39 [facility] Basophils Auto (Bld) [#/Vol] Ordered By: Abdullahi Wilson on 02-07-2024 Basophils (Bld) [#/Vol] 0.1 10*3/uL 0.0-0.2 [facility] Basophils/100 WBC Auto (Bld) Ordered By: Abdullahi Wilson on 07-12-2023 Basophils/100 WBC (Bld) 1.1 % . [facility] Bilirubin.total [Mass/volume ] in Serum or PlasmaOrdered By: Abdullahi Wilson on 07-12-2023 Bilirubin [Mass/Vol] 0.4 mg/dL 0.3-1.0 [facility] Calcium [Mass/volume] in Ser um or PlasmaOrdered By: Abdullahi Wilson on 07-12-2023 Calcium [Mass/Vol] 8.5 mg/dL 8.6-10.3 [facility] Carbon dioxide, total [Moles /volume] in Serum or PlasmaOrdered By: Abdullahi Wilson on 07-12-2023 CO2 [Moles/Vol] 24.5 mmol/L 21.0-31.0 [facility] Chloride [Moles/volume] in S ilia or PlasmaOrdered By: Abdullahi Wilson on 07-12-2023 Chloride [Moles/Vol] 102 mmol/L 98-107 [facility] Creatine kinase [Enzymatic a ctivity/volume] in Serum or PlasmaOrdered By: Abdullahi Wilson on 07-12-2023 CK [Catalytic activity/Vol] 55 U/L 30-223 [facility] Creatinine [Mass/volume] in Serum or PlasmaOrdered By: Abdullahi Wilson on 07-12-2023 Creatinine [Mass/Vol] 1.82 mg/dL 0.70-1.30 [facility] Eosinophils Auto (Bld) [#/Vo l]Ordered By: Abdullahi Wilson on 07-12-2023 Eosinophils (Bld) [#/Vol] 0.3 10*3/uL 0.0-0.45 [facility] Eosinophils/100 WBC Auto (Bl d)Ordered By: Abdullahi Wilson on 07-12-2023 Eosinophils/100 WBC (Bld) 3.3 % . [facility] Erythrocyte distribution wid th Auto (RBC) [Ratio]Ordered By: Abdullahi Wilson on 07-12-2023 Erythrocyte distribution width (RBC) [Ratio] 17.1 % 12.0-14.8 [facility] Globulin Calc (S) [Mass/Vol] Ordered By: Abdullahi Wilson on 07-12-2023 Globulin (S) [Mass/Vol] 3.1 g/dL [facility] Glucose [Mass/volume] in Ser um or [...] Hematocrit (Bld) [Volume fraction] 32.7 % 38.8-50.0 [facility] Hemoglobin [Mass/volume] in BloodOrdered By: Abdullahi Wilson on 07-12-2023 Hemoglobin (Bld) [Mass/Vol] 10.6 g/dL 13.0-17.0 [facility] INR in Platelet poor plasma by Coagulation assayOrdered By: Abdullahi Wilson on 07-12-2023 INR Coag (PPP) [Relative time] 1.1 {INR} [facility] Comment on above: INR Therapeutic Rang [...] RBC Auto (Bld) [#/Vol] 9.5 10*3/uL 4.1-10.5 [facility] Lymphocytes Auto (Bld) [#/Vo l]Ordered By: Abdullahi Wilson on 07-12-2023 Lymphocytes (Bld) [#/Vol] 1.9 10*3/uL 1.00-4.8 [facility] Lymphocytes/100 WBC Auto (Bl d)Ordered By: Abdullahi Wilson on 07-12-2023 Lymphocytes/100 WBC (Bld) 20.0 % . [facility] MCH Auto (RBC) [Entitic mass ]Ordered By: Abdullahi Wilson on 07-12-2023 MCH (RBC) [Entitic mass] 22.8 pg 27.5-35.2 [facility] MCHC Auto (RBC) [Mass/Vol]Or dered By: Abdullahi Wilson on 07-12-2023 MCHC (RBC) [Mass/Vol] 32.4 g/dL 32.5-35.6 [facility] MCV Auto (RBC) [Entitic vol] Ordered By: Abdullahi Wilson on 07-12-2023 MCV (RBC) [Entitic vol] 70.6 fL 83.5-101 [facility] Monocyte distribution width [Entitic volume] in Blood by AutomatedOrdered By: Abdullahi Wilson on 07-12-2023 Monocyte distribution width Auto (Bld) [Entitic vol] 18.12 % 0.00-20.00 [facility] Monocytes Auto (Bld) [#/Vol] Ordered By: Abdullahi Wilson on 07-12-2023 Monocytes (Bld) [#/Vol] 1.0 10*3/uL 0.0-0.8 [facility] Monocytes/100 WBC Auto (Bld) Ordered By: Abdullahi Wilson on 07-12-2023 Monocytes/100 WBC (Bld) 10.2 % . [facility] Natriuretic peptide B [Mass/ Vol]Ordered By: Abdullahi Wilson on 07-12-2023 Natriuretic peptide B (Bld) [Mass/Vol] 34.0 pg/mL 5-100 [facility] Neutrophils Auto (Bld) [#/Vo l]Ordered By: Abdullahi Wilson on 07-12-2023 Neutrophils (Bld) [#/Vol] 6.2 10*3/uL 1.8-7.7 [facility] Neutrophils/100 WBC Auto (Bl d)Ordered By: Abdullahi Wilson on 07-12-2023 Neutrophils/100 WBC (Bld) 65.4 % . [facility] No Panel InformationOrdered By: Abdullahi Wilson on 07-12-2023 Estimated GFR (CKD-EPI) 42.789 mL/Min [facility] Creatinine Clearance (Chem 54.64 [facility] Nucleated erythrocytes [Pres ence] in Blood by Automated countOrdered By: Abdullahi Wilson on 07-12-2023 Nucleated RBC Auto Ql (Bld) 0.1 /100{WBC} 0-0.5 [facility] Platelet mean volume Auto (B ld) [Entitic vol]Ordered By: Abdullahi Wilson on 07-12-2023 Platelet mean volume (Bld) [Entitic vol] 9.1 fL 6.6-10.1 [facility] Platelets Auto (Bld) [#/Vol] Ordered By: Abdullahi Wilson on 07-12-2023 Platelets (Bld) [#/Vol] 233 10*3/uL 150-450 [facility] Potassium [Moles/volume] in Serum or PlasmaOrdered By: Abdullahi Wilson on 07-12-2023 Potassium [Moles/Vol] 3.9 mmol/L 3.5-5.1 [facility] Protein [Mass/volume] in Ser um or PlasmaOrdered By: Abdullahi Wilson on 07-12-2023 Protein [Mass/Vol] 7.0 g/dL 6.4-8.9 [facility] Prothrombin time (PT)Ordered By: Abdullahi Wilson on 07-12-2023 PT Coag (PPP) [Time] 12.1 s 9.0-12.9 [facility] Comment on above: A hematocrit value g reater than 55% may lead to inaccurate results in coagulation testing. Patients having hematocrit values >55% require a special collection tube for coagulation studies. Please contact the laboratory at [phone] for redraw instructions. RBC Auto (Bld) [#/Vol]Ordere d By: Abdullahi Wilson on 07-12-2023 RBC (Bld) [#/Vol] 4.63 10*6/uL 3.90-5.60 [facility] Serum or plasma albumin/glob ulin mass ratioOrdered By: Abdullahi Wilson on 07-12-2023 Albumin/Globulin [Mass ratio] 1.3 {ratio} [facility] Serum or plasma anion gap de terminationOrdered By: Abdullahi Wilson on 07-12-2023 Anion gap [Moles/Vol] 13.4 mmol/L 6.0-15.0 [facility] Sodium [Moles/volume] in Ser um or PlasmaOrdered By: Abdullahi Wilson on 07-12-2023 Sodium [Moles/Vol] 136 mmol/L 136-145 [facility] Troponin I.cardiac [Mass/vol ume] in Serum or Plasma by Detection limit <= 0.01 ng/Ordered By: Abdullahi Wilson on 07-12-2023 Troponin I.cardiac DL <= 0.01 ng/mL [Mass/Vol] 4.6 pg/mL 0.0-20.0 [facility] Urea nitrogen [Mass/volume] in Serum or PlasmaOrdered By: Abdullahi Wilson on 07-12-2023 Urea nitrogen [Mass/Vol] 16 mg/dL 7-25 [facility] WBC Auto (Bld) [#/Vol]Ordere d By: Abdullahi Wilson on 07-12-2023 WBC (Bld) [#/Vol] 9.5 10*3/uL 4.1-10.5 [facility] Patient Educationon 06-02-20 Patient Education Urology Benign [...] Follow these instructions at home: ? Take jyir-ibo-kmanooc and prescription medicines only as told by [...] the medicine (more content not included)... Normal [facility] Retail - Clinical Noteon Retail - Clinical Note [id number]#1.00TIFF Normal [facility] Urology Office/Clinic Noteon 06-02-2023 Urology Office/Clinic Note Chief Complaint S/p to Cysto HPI Staff Sp to Cysto done @ [facility] on 02/14/23- Has [...] Contact Information SOLEDAD HERRERA, Yeyo Blum, URL [address] [place], [place] [id number]- Additional Instructions: 1 month w/ cath volumes [...] heart failure) (more content not included)... Normal [facility] Comment on above: Result Comment: Elec tronically Signed By: Yeyo ROEW MD\.br\Date and Time Signed: 06/02/23 12:16 EST\.br\Electronically Co-Signed By: Mattie Foster.br\Date and Time Co-Signed: 06/02/23 12:04 EST Patient Educationon 05-03-20 Patient Education Normal [facility] Pathology Noteon 05-01-2023 Pathology Note [id number]#1.00TIFF Normal [facility] Lab Reportson 04-14-2023 Lab Reports [id number]#1.00TIFF Normal [facility] Operative Reporton Operative Report [id number]#1.00TIFF Normal [facility] Patient Correspondenceon Patient Correspondence [id number]#1.00TIFF Normal [facility] Lab Reportson 03-31-2023 Lab Reports [id number]#1.00TIFF Normal [facility] RAD - MISCon 03-31-2023 RAD - MISC [id number]#1.00TIFF Normal [facility] Patient Correspondenceon Patient Correspondence [id number]#1.00TIFF Normal [facility] Formson 03-23-2023 Forms [id number]#1.00TIFF Normal [facility] A1C HEMOGLOBINon 03-15-2023 HbA1c (Bld) [Mass fraction] 7.5 % [facility] Other HbA1c (Bld) [Mass fraction]o n 03-15-2023 A1C HEMOGLOBIN Physician Practice [employer] Other Lab Reportson 03-09-2023 Lab Reports [id number]#1.00TIFF Marquise Chatman [facility] Office Visit [...] in adult Healthy Weight Tips; Status:Complete; Done: [id number] Patient Instructions Please bring all medicines, vitamins, [...] Sia HERRERA, (more content not included)... Normal [facility] Tobacco Screening.on 023 Fall risk assessment c) Not medically indicated -[facility] 250 DO Work Phone: Tobacco use status [facility] b) No [facility] Work Phone: Tobacco Screening. Yes [facility] 250 DO Work Phone: [facility] CARDIAC STRESS/REST INJE CTIONon 01-25-2023 [facility] CARDIAC STRESS/REST INJECTION Patient Name: MYRA PICKARD STUDY: MYOCARDIAL PERFUSION STRESS TEST WITH EXERCISE CONVERTED TO LEXISCAN Performing facility: [facility], [address] [place] [address], [address], [address] Provider: Dolores Pickard RN, MEDICAL APPOINTMENT CLERK PCP: Dr. Teresa Lynch Supervising provider: Pascale Arnold MD, FACC INDICATION: Anginal equivalent CAD; HISTORY: Gender: M; Age: 57 y/o ; Height: 182.88 cm; Weight: 97.7251441 kg. High Cholesterol; CAD; Diabetes; HTN; Palpitations; Chest Pain; Quit smoking unknown years ago. COMPARISON: Previous nuclear testing completed at [facility]. ACCESSION NUMBER(S): [id number]; [id number]; [id number] ORDERING CLINICIAN: DOLORES PICKARD TECHNIQUE: ONE DAY [...] Electronically signed by: PASCALE ARNOLD MD Normal [facility] No Panel Informationon 01-25 Normal -[facility] 250 DO Work [...] contact the office if new symptoms arise. 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 Normal [facility] Tobacco Screening.on 023 Adult depression screening assessment No [facility] 600 DO Work Phone: Tobacco use status [facility] b) No [facility] 600 DO Work Phone: Alanine aminotransferase [En zymatic activity/volume] in Serum or PlasmaOrdered By: Teresa Lynch on 09-27-2022 ALT [Catalytic activity/Vol] 15 U/L 7-52 [facility] Albumin [Mass/volume] in Ser um or Plasma by Bromocresol green (BCG) dye binding methoOrdered By: Teresa Lynch on 09-27-2022 Albumin BCG dye [Mass/Vol] 4.1 g/dL 3.5-5.7 [facility] Alkaline phosphatase [Enzyma tic activity/volume] in Serum or PlasmaOrdered By: Teresa Lynch on 09-27-2022 ALP [Catalytic activity/Vol] 116 U/L 34-104 [facility] Aspartate aminotransferase [ Enzymatic activity/volume] in Serum or PlasmaOrdered By: Teresa Lynch on 09-27-2022 AST [Catalytic activity/Vol] 15 U/L 13-39 [facility] Basophils Auto (Bld) [#/Vol] Ordered By: Teresa Lynch on 09-27-2022 Basophils (Bld) [#/Vol] 0.1 10*3/uL 0.0-0.2 [facility] Basophils/100 WBC Auto (Bld) Ordered By: Teresa Lynch on 09-27-2022 Basophils/100 WBC (Bld) 1.1 % . [facility] Bilirubin.total [Mass/volume ] in Serum or PlasmaOrdered By: Teresa Lynch on 09-27-2022 Bilirubin [Mass/Vol] 0.4 mg/dL 0.3-1.0 [facility] Calcium [Mass/volume] in Ser um or PlasmaOrdered By: Teresa Lynch on 09-27-2022 Calcium [Mass/Vol] 8.8 mg/dL 8.6-10.3 [facility] Carbon dioxide, total [Moles /volume] in Serum or PlasmaOrdered By: Teresa Lynch on 09-27-2022 CO2 [Moles/Vol] 27.2 mmol/L 21.0-31.0 [facility] Chloride [Moles/volume] in S ilia or PlasmaOrdered By: Teresa Lynch on 09-27-2022 Chloride [Moles/Vol] 99 mmol/L 98-107 [facility] Cholesterol [Mass/volume] in Serum or PlasmaOrdered By: Teresa Lynch on 09-27-2022 Cholesterol [Mass/Vol] 104 mg/dL 140-200 Fi [facility] Comment on above: Chol less than 200 m g/dl low riskChol 201-239 mg/dl borderline riskChol 240 mg/dl and greater high risk Cholesterol in LDL Calc [Mas s/Vol]Ordered By: Teresa Lynch on 09-27-2022 Cholesterol in LDL [Mass/Vol] TNP [facility] Comment on above: Test not performed Cholesterol in LDL [Mass/vol ume] in Serum or PlasmaOrdered By: Teresa Lynch on 09-27-2022 Cholesterol in LDL [Mass/Vol] 38 mg/dL 0-100 [facility] Comment on above: LDL ATP III CLASSIFI CATIONLDL less than 100 mg/dL OptimalLDL 100-129 mg/dL Near or above optimalLDL 130-159 mg/dL Borderline highLDL 160-189 mg/dL HighLDL greater than 189 mg/dL Very high Cholesterol in VLDL Calc [Ma ss/Vol]Ordered By: Teresa Lynch on 09-27-2022 Cholesterol in VLDL [Mass/Vol] 99 mg/dL [facility] Creatinine [Mass/volume] in Serum or PlasmaOrdered By: Teresa Lynch on 09-27-2022 Creatinine [Mass/Vol] 1.84 mg/dL 0.70-1.30 [facility] Eosinophils Auto (Bld) [#/Vo l]Ordered By: Teresa Lynch on 09-27-2022 Eosinophils (Bld) [#/Vol] 0.7 10*3/uL 0.0-0.45 [facility] Eosinophils/100 WBC Auto (Bl d)Ordered By: Teresa Lynch on 09-27-2022 Eosinophils/100 WBC (Bld) 5.9 % . [facility] Erythrocyte distribution wid th Auto (RBC) [Ratio]Ordered By: Teresa Lynch on 09-27-2022 Erythrocyte distribution width (RBC) [Ratio] 16.0 % 12.0-14.8 [facility] Globulin Calc (S) [Mass/Vol] Ordered By: Teresa Lynch on 09-27-2022 Globulin (S) [Mass/Vol] 2.9 g/dL [facility] Glucose [Mass/volume] in Ser um or [...] Hematocrit (Bld) [Volume fraction] 41.0 % 38.8-50.0 [facility] Hemoglobin [Mass/volume] in BloodOrdered By: Teresa Lynch on 09-27-2022 Hemoglobin (Bld) [Mass/Vol] 13.2 g/dL 13.0-17.0 [facility] Leukocytes [#/volume] correc jorge for nucleated erythrocytes in Blood by Automated counOrdered By: Teresa Lynch on 09-27-2022 WBC corrected for nucl RBC Auto (Bld) [#/Vol] 12.4 10*3/uL 4.1-10.5 [facility] Lymphocytes Auto (Bld) [#/Vo l]Ordered By: Teresa Lynch on 09-27-2022 Lymphocytes (Bld) [#/Vol] 2.3 10*3/uL 1.00-4.8 [facility] Lymphocytes/100 WBC Auto (Bl d)Ordered By: Teresa Lynch on 09-27-2022 Lymphocytes/100 WBC (Bld) 18.2 % . [facility] MCH Auto (RBC) [Entitic mass ]Ordered By: Teresa Lynch on 09-27-2022 MCH (RBC) [Entitic mass] 23.9 pg 27.5-35.2 [facility] MCHC Auto (RBC) [Mass/Vol]Or dered By: Teresa Lynch on 09-27-2022 MCHC (RBC) [Mass/Vol] 32.2 g/dL 32.5-35.6 [facility] MCV Auto (RBC) [Entitic vol] Ordered By: Teresa Lynch on 09-27-2022 MCV (RBC) [Entitic vol] 74.3 fL 83.5-101 [facility] Monocytes Auto (Bld) [#/Vol] Ordered By: Teresa Lynch on 09-27-2022 Monocytes (Bld) [#/Vol] 1.0 10*3/uL 0.0-0.8 [facility] Monocytes/100 WBC Auto (Bld) Ordered By: Teresa Lynch on 09-27-2022 Monocytes/100 WBC (Bld) 7.9 % . [facility] Neutrophils Auto (Bld) [#/Vo l]Ordered By: Teresa Lynch on 09-27-2022 Neutrophils (Bld) [#/Vol] 8.3 10*3/uL 1.8-7.7 [facility] Neutrophils/100 WBC Auto (Bl d)Ordered By: Teresa Lynch on 09-27-2022 Neutrophils/100 WBC (Bld) 66.9 % . [facility] No Panel InformationOrdered By: Teresa Lynch on 09-27-2022 Estimated GFR (CKD-EPI) 42.232 mL/Min [facility] Creatinine Clearance (Chem N/A [facility] Nucleated erythrocytes [Pres ence] in Blood by Automated countOrdered By: Teresa Lynch on 09-27-2022 Nucleated RBC Auto Ql (Bld) 0.1 /100{WBC} 0-0.5 [facility] Platelet mean volume Auto (B ld) [Entitic vol]Ordered By: Teresa Lynch on 09-27-2022 Platelet mean volume (Bld) [Entitic vol] 9.1 fL 6.6-10.1 [facility] Platelets Auto (Bld) [#/Vol] Ordered By: Teresa Lynch on 09-27-2022 Platelets (Bld) [#/Vol] 209 10*3/uL 150-450 [facility] Potassium [Moles/volume] in Serum or PlasmaOrdered By: Teresa Lynch on 09-27-2022 Potassium [Moles/Vol] 4.3 mmol/L 3.5-5.1 [facility] Protein [Mass/volume] in Ser um or PlasmaOrdered By: Teresa Lynch on 09-27-2022 Protein [Mass/Vol] 7.0 g/dL 6.4-8.9 [facility] RBC Auto (Bld) [#/Vol]Ordere d By: Teresa Lynch on 09-27-2022 RBC (Bld) [#/Vol] 5.52 10*6/uL 3.90-5.60 [facility] Serum or plasma albumin/glob ulin mass ratioOrdered By: Teresa Lynch on 09-27-2022 Albumin/Globulin [Mass ratio] 1.4 {ratio} [facility] Serum or plasma anion gap de terminationOrdered By: Teresa Lynch on 09-27-2022 Anion gap [Moles/Vol] 14.1 mmol/L 6.0-15.0 [facility] Serum or plasma high density lipoprotein (HDL) cholesterol measurementOrdered By: Teresa Lynch on 09-27-2022 Cholesterol in HDL [Mass/Vol] 21 mg/dL 29-71 [facility] Comment on above: HDL CHOL ATP-III CLA SSIFICATION Cardiovascular RiskHDL > or equal to 60 mg/dL LOWHDL < 40 mg/dL HIGH Serum or plasma total choles terol/high density lipoprotein (HDL) cholesterol mass ratOrdered By: Teresa Lynch on 09-27-2022 Cholesterol.total/Chol esterol in HDL [Mass ratio] 5.0 {ratio} <5.0 [facility] Sodium [Moles/volume] in Ser um or PlasmaOrdered By: Teresa Lynch on 09-27-2022 Sodium [Moles/Vol] 136 mmol/L 136-145 [facility] Thyrotropin [Units/volume] i n Serum or PlasmaOrdered By: Teresa Lynch on 09-27-2022 TSH Qn 3.62 m[IU]/L 0.45-5.33 [facility] Triglyceride [Mass/volume] i n Serum or PlasmaOrdered By: Teresa Lynch on 09-27-2022 Triglyceride [Mass/Vol] 497 mg/dL 0-149 [facility] Comment on above: If the triglyceride [...] on 09-27-2022 Urate [Mass/Vol] 6.2 mg/dL 2.4-7.6 [facility] Urea nitrogen [Mass/volume] in Serum or PlasmaOrdered By: Teresa Lynch on 09-27-2022 Urea nitrogen [Mass/Vol] 15 mg/dL 12-27 [facility] WBC Auto (Bld) [#/Vol]Ordere d By: Teresa Lynch on 09-27-2022 WBC (Bld) [#/Vol] 12.4 10*3/uL 4.1-10.5 [facility] A1C HEMOGLOBINon 02-15-2022 HbA1c (Bld) [Mass fraction] % [facility] Other HbA1c (Bld) [Mass fraction]o n 02-15-2022 A1C HEMOGLOBIN [facility] [employer] Other Tobacco Screening.on 022 Adult depression screening assessment No [facility] DO Work Phone: Tobacco use status [facility] b) No [facility] DO Work Phone: A1C HEMOGLOBINon 07-27-2021 HbA1c (Bld) [Mass fraction] 11.8 % [facility] Other HbA1c (Bld) [Mass fraction]o n 07-27-2021 A1C HEMOGLOBIN [facility] [employer] Other Vital Signs Date Time Vital Sign Value Performing Clinician Facility 02-27-2025 10:51-0400 Body height 182.9 cm [facility] 02-27-2025 10:51-0400 Body mass index (BMI) [Ratio] 28.07 kg/m2 Mike Montes MD Work Phone: [facility] 02-27-2025 10:51-0400 Body weight 93.89 kg Mike Montes MD Work Phone: [facility] 02-27-2025 10:51-0400 Diastolic blood pressure 81 mm[Hg] Mike Montes MD Work Phone: [facility] 02-27-2025 10:51-0400 Heart rate 75 /min Mike Montes MD Work Phone: [facility] 02-27-2025 10:51-0400 SaO2% (BldA) [Mass fraction] 99 % Mike Montes MD Work Phone: [facility] 02-27-2025 10:51-0400 Systolic blood pressure 128 mm[Hg] Mike Montes MD Work Phone: [facility] 02-05-2025 09:05-0400 Diastolic blood pressure 86 mm[Hg] Fabiana [address] [place] [address] 02-05-2025 09:05-0400 Heart rate 71 /min Fabiana [address] [place] [address] 02-05-2025 09:05-0400 Systolic blood pressure 120 mm[Hg] [address] 11-05-2024 16:13-0400 Body height 182.88 cm Teresa Lynch DO Work Phone: [facility] 11-05-2024 16:13-0400 Body mass index (BMI) [Ratio] 28.2 kg/m2 Teresa Lynch DO Work Phone: [facility] 11-05-2024 16:13-0400 Body weight 94.34 kg Teresa Lynch DO Work Phone: [facility] 11-05-2024 16:13-0400 Diastolic blood pressure 67 mm[Hg] Teresa Lynch DO Work Phone: [facility] 11-05-2024 16:13-0400 Heart rate 68 /min Teresa Kuns DO Work Phone: [facility] 11-05-2024 16:13-0400 Respiratory rate 18 /min Teresagorge Fraustos DO Work Phone: [facility] 11-05-2024 16:13-0400 SaO2% (BldA) [Mass fraction] 96 % Teresagorge Fraustos DO Work Phone: [facility] 11-05-2024 16:13-0400 Systolic blood pressure 105 mm[Hg] Teresa Jetts DO Work Phone: [facility] 11-05-2024 13:50-0400 Body weight 96.16 kg Teresa Fraustos DO Work Phone: [facility] 11-05-2024 13:50-0400 Diastolic blood pressure 68 mm[Hg] Teresa Jetts DO Work Phone: [facility] 11-05-2024 13:50-0400 Heart rate 70 /min Teresa Fraustos DO Work Phone: [facility] 11-05-2024 13:50-0400 Respiratory rate 18 /min Teresa Fraustos DO Work Phone: [facility] 11-05-2024 13:50-0400 SaO2% (BldA) [Mass fraction] 98 % Teresa Fraustos DO Work Phone: [facility] 11-05-2024 13:50-0400 Systolic blood pressure 108 mm[Hg] Teresa Fraustos DO Work Phone: [facility] 10-11-2024 13:40-0400 Heart rate 62 /min Teresa Jetts DO Work Phone: [facility] 10-11-2024 13:40-0400 Respiratory rate 20 /min Teresa Jetts DO Work Phone: [facility] 10-11-2024 08:00-0400 Body temperature 98.3 [degF] Teresa Jetts DO Work Phone: [facility] 10-11-2024 08:00-0400 Diastolic blood pressure 68 mm[Hg] Teresagorge Fraustos DO Work Phone: [facility] 10-11-2024 08:00-0400 SaO2% (BldA) [Mass fraction] 96 % Teresagorge Fraustos DO Work Phone: [facility] 10-11-2024 08:00-0400 Systolic blood pressure 117 mm[Hg] Teresa Jetts DO Work Phone: [facility] 10-11-2024 06:00-0400 Body weight 92.6 kg Teresa Fraustos DO Work Phone: [facility] 10-10-2024 20:48-0400 Body height 182.88 cm Teresagorge Fraustos DO Work Phone: [facility] 10-10-2024 20:30-0400 Diastolic blood pressure 71 mm[Hg] Teresa Jetts DO Work Phone: [facility] 10-10-2024 20:30-0400 Heart rate 78 /min Teresa Fraustos DO Work Phone: [facility] 10-10-2024 20:30-0400 Respiratory rate 18 /min Teresa Fraustos DO Work Phone: [facility] 10-10-2024 20:30-0400 SaO2% (BldA) [Mass fraction] 97 % Teresagorge Fraustos DO Work Phone: [facility] 10-10-2024 20:30-0400 Systolic blood pressure 117 mm[Hg] Teresagorge Fraustos DO Work Phone: [facility] 10-10-2024 14:36-0400 Body height 182.88 cm Teresa Jetts DO Work Phone: [facility] 10-10-2024 14:36-0400 Body temperature 97.6 [degF] Teresa Fraustos DO Work Phone: [facility] 10-10-2024 14:36-0400 Body weight 88.45 kg Teresa Fraustos DO Work Phone: [facility] 08-30-2024 09:28-0400 Body height 182.88 cm Teresa Fraustos DO Work Phone: [facility] 08-30-2024 09:28-0400 Body mass index (BMI) [Ratio] 27.1 kg/m2 Teresa Fraustos DO Work Phone: [facility] 08-30-2024 09:28-0400 Body weight 90.71 kg Teresa Fraustos DO Work Phone: [facility] 08-30-2024 09:28-0400 Diastolic blood pressure 70 mm[Hg] Teresa Jetts DO Work Phone: [facility] 08-30-2024 09:28-0400 Heart rate 82 /min Teresagorge Fraustos DO Work Phone: [facility] 08-30-2024 09:28-0400 Respiratory rate 16 /min Teresa Jetts DO Work Phone: [facility] 08-30-2024 09:28-0400 SaO2% (BldA) [Mass fraction] 99 % Teresagorge Fraustos DO Work Phone: [facility] 08-30-2024 09:28-0400 Systolic blood pressure 102 mm[Hg] Teresa Jetts DO Work Phone: [facility] 08-13-2024 15:30-0400 Heart rate 66 /min Teresa Kuns DO Work Phone: [facility] 08-13-2024 15:30-0400 Respiratory rate 20 /min Teresa Jetts DO Work Phone: [facility] 08-13-2024 15:14-0400 Diastolic blood pressure 69 mm[Hg] Teresa Jetts DO Work Phone: [facility] 08-13-2024 15:14-0400 SaO2% (BldA) [Mass fraction] 99 % Teresa Fraustos DO Work Phone: [facility] 08-13-2024 15:14-0400 Systolic blood pressure 122 mm[Hg] Teresa Fraustos DO Work Phone: [facility] 08-13-2024 08:21-0400 Body temperature 97.6 [degF] Teresa Fraustos DO Work Phone: [facility] 08-13-2024 06:48-0400 Body weight 91.5 kg Teresa Fraustos DO Work Phone: [facility] 08-11-2024 14:57-0400 Body height 182.88 cm Teresa Fraustos DO Work Phone: [facility] 08-11-2024 06:29-0400 Body height 182.88 cm Teresa Fraustos DO Work Phone: [facility] 08-11-2024 06:29-0400 Body temperature 98 [degF] Teresa Fraustos DO Work Phone: [facility] 08-11-2024 06:29-0400 Body weight 91.3 kg Teresa Fraustos DO Work Phone: [facility] 08-11-2024 06:29-0400 Diastolic blood pressure 61 mm[Hg] Teresa Fraustos DO Work Phone: [facility] 08-11-2024 06:29-0400 Heart rate 92 /min Teresa Fraustos DO Work Phone: [facility] 08-11-2024 06:29-0400 Respiratory rate 16 /min Teresa Fraustos DO Work Phone: [facility] 08-11-2024 06:29-0400 SaO2% (BldA) [Mass fraction] 99 % Teresa Lynch DO Work Phone: [facility] 08-11-2024 06:29-0400 Systolic blood pressure 113 mm[Hg] Teresa Lynch DO Work Phone: [facility] 08-02-2024 09:02-0500 Blood Pressure Location MARYBEL RASHI [facility] 08-02-2024 09:02-0500 Body temperature 96.98 [degF] MARYBEL RASHI [facility] 08-02-2024 09:02-0500 Diastolic blood pressure 69 mm[Hg] MARYBEL RASHI [facility] 08-02-2024 09:02-0500 Heart rate 80 /min MARYBEL RASHI [facility] 08-02-2024 09:02-0500 Respiratory rate 18 /min MARYBEL RASHI [facility] 08-02-2024 09:02-0500 Systolic blood pressure 118 mm[Hg] MARYBEL RASHI [facility] 05-27-2024 14:47-0500 Blood Pressure Location Yeyo ROWE [facility] 05-27-2024 14:47-0500 Body temperature 98.6 [degF] Yeyo ROWE [facility] 05-27-2024 14:47-0500 Diastolic blood pressure 69 mm[Hg] Yeyo ROWE [facility] 05-27-2024 14:47-0500 Heart rate 70 /min Yeyo ROWE [facility] 05-27-2024 14:47-0500 Respiratory rate 16 /min Yeyo ROWE [facility] 05-27-2024 14:47-0500 Systolic blood pressure 107 mm[Hg] Yeyo ROWE [facility] 05-07-2024 16:35-0500 Body temperature 98 [degF] Teresa Fraustos DO Work Phone: [facility] 05-07-2024 16:35-0500 Diastolic blood pressure 55 mm[Hg] Teresa Jetts DO Work Phone: [facility] 05-07-2024 16:35-0500 Heart rate 79 /min Teresa Jetts DO Work Phone: [facility] 05-07-2024 16:35-0500 Respiratory rate 16 /min Teresagorge Fraustos DO Work Phone: [facility] 05-07-2024 16:35-0500 SaO2% (BldA) [Mass fraction] 99 % Teresa Kuns DO Work Phone: [facility] 05-07-2024 16:35-0500 Systolic blood pressure 86 mm[Hg] Teresagorge Fraustos DO Work Phone: [facility] 04-24-2024 11:04-0500 Diastolic blood pressure 60 mm[Hg] Kait Dan MD Work Phone: [facility] 04-24-2024 11:04-0500 Heart rate 86 /min Kait Dan MD Work Phone: [facility] 04-24-2024 11:04-0500 SaO2% (BldA) [Mass fraction] 99 % Kait Dan MD Work Phone: [facility] 04-24-2024 11:04-0500 Systolic blood pressure 122 mm[Hg] Kait Dan MD Work Phone: [facility] 04-23-2024 14:30-0500 Diastolic blood pressure 67 mm[Hg] Kait Dan MD Work Phone: [facility] 04-23-2024 14:30-0500 Heart rate 74 /min Kait Dan MD Work Phone: [facility] 04-23-2024 14:30-0500 Respiratory rate 18 /min Kait Dan MD Work Phone: [facility] 04-23-2024 14:30-0500 SaO2% (BldA) [Mass fraction] 98 % Kait Dan MD Work Phone: [facility] 04-23-2024 14:30-0500 Systolic blood pressure 104 mm[Hg] Kait Dan MD Work Phone: [facility] 04-23-2024 12:52-0500 Body height 182.88 cm Kait Dan MD Work Phone: [facility] 04-23-2024 12:52-0500 Body weight 88.45 kg Kait Dan MD Work Phone: [facility] 04-04-2024 16:48-0400 Body weight 88.45 kg Kait Dan MD Work Phone: [facility] 04-04-2024 14:00-0400 Diastolic blood pressure 62 mm[Hg] Kait Dan MD Work Phone: [facility] 04-04-2024 14:00-0400 Heart rate 86 /min Kait Dan MD Work Phone: [facility] 04-04-2024 14:00-0400 Respiratory rate 18 /min Kait Dan MD Work Phone: [facility] 04-04-2024 14:00-0400 SaO2% (BldA) [Mass fraction] 97 % Kait Dan MD Work Phone: [facility] 04-04-2024 14:00-0400 Systolic blood pressure 100 mm[Hg] Kait Dan MD Work Phone: [facility] 03-21-2024 10:30-0400 Diastolic blood pressure 68 mm[Hg] MD Kait Dan Work Phone: [facility] 03-21-2024 10:30-0400 Heart rate 95 /min MD Kait Dan Work Phone: [facility] 03-21-2024 10:30-0400 Systolic blood pressure 103 mm[Hg] MD Kait Dan Work Phone: [facility] 03-19-2024 17:26-0400 Body temperature 98.01 [degF] Guero [employer] DO Work Phone: [employer] 03-19-2024 17:26-0400 Diastolic blood pressure 78 mm[Hg] [facility] Furlong [facility] 03-19-2024 17:26-0400 Heart rate 85 /min Guero Furlong DO [facility] 03-19-2024 17:26-0400 Respiratory rate 19 /min Guero Furlong [facility] 03-19-2024 17:26-0400 SaO2% (BldA) [Mass fraction] 96 % Guero Furlong DO Work Phone: [employer] 03-19-2024 17:26-0400 Systolic blood pressure 124 mm[Hg] Guero Furlong [facility] 03-15-2024 18:27-0400 Body mass index (BMI) [Ratio] 26.75 kg/m2 Guero Furlong DO Work Phone: [employer] 03-15-2024 18:27-0400 Body temperature 98.01 [degF] [facility] [employer] 03-15-2024 18:27-0400 Body weight 89.45 kg Guero Furlong DO [facility] [employer] 03-15-2024 18:27-0400 Diastolic blood pressure 94 mm[Hg] Guero Furlong DO Work Phone: [facility] [employer] [facility] 03-15-2024 18:27-0400 Heart rate 84 /min Guero Furlong DO [facility] [employer] 03-15-2024 18:27-0400 Respiratory rate 18 /min Guero Furlong DO Work Phone: [facility] [employer] 03-15-2024 18:27-0400 SaO2% (BldA) [Mass fraction] 95 % Guero Jesusitalong DO Work Phone: [facility] [employer] 03-15-2024 18:27-0400 Systolic blood pressure 131 mm[Hg] Guero Jesusitalong DO Work Phone: [facility] [employer] [facility] 03-13-2024 11:08-0400 Body temperature 97.8 [degF] MD Kait Dan Work Phone: [facility] 03-13-2024 11:08-0400 Diastolic blood pressure 82 mm[Hg] MD Kait Dan Work Phone: [facility] 03-13-2024 11:08-0400 Heart rate 77 /min MD Kait Dan Work Phone: [facility] 03-13-2024 11:08-0400 Respiratory rate 16 /min MD Kait Dan Work Phone: [facility] 03-13-2024 11:08-0400 SaO2% (BldA) [Mass fraction] 99 % MD Kait Dan Work Phone: [facility] 03-13-2024 11:08-0400 Systolic blood pressure 149 mm[Hg] MD Kait Dan Work Phone: [facility] 03-13-2024 06:00-0400 Body weight 90.2 kg MD Kait Dan Work Phone: [facility] 03-09-2024 12:29-0400 Body height 180.34 cm MD Kait Dan Work Phone: [facility] 03-08-2024 21:00-0400 Diastolic blood pressure 72 mm[Hg] MD Kait Dan Work Phone: [facility] 03-08-2024 21:00-0400 Heart rate 93 /min MD Kait Dan Work Phone: [facility] 03-08-2024 21:00-0400 SaO2% (BldA) [Mass fraction] 97 % MD Kait Dan Work Phone: [facility] 03-08-2024 21:00-0400 Systolic blood pressure 134 mm[Hg] MD Kait Dan Work Phone: [facility] 03-08-2024 20:30-0400 Respiratory rate 16 /min MD Kait Dan Work Phone: [facility] 03-08-2024 20:07-0400 Body temperature 98.4 [degF] MD Kait Dan Work Phone: [facility] 03-08-2024 14:10-0400 Body height 180.34 cm MD Kait Dan Work Phone: [facility] 03-08-2024 14:10-0400 Body weight 89.3 kg MD Kait Dan Work Phone: [facility] 03-06-2024 15:51-0400 Body temperature 98.1 [degF] MD Kait Dan Work Phone: [facility] 03-06-2024 15:51-0400 Diastolic blood pressure 73 mm[Hg] MD Kait Dan Work Phone: [facility] 03-06-2024 15:51-0400 Heart rate 78 /min MD Kait Dan Work Phone: [facility] 03-06-2024 15:51-0400 Respiratory rate 16 /min MD Kait Dan Work Phone: [facility] 03-06-2024 15:51-0400 SaO2% (BldA) [Mass fraction] 97 % MD Kait Dan Work Phone: [facility] 03-06-2024 15:51-0400 Systolic blood pressure 140 mm[Hg] MD Kait Dan Work Phone: [facility] 03-06-2024 05:29-0400 Body weight 90.9 kg MD Kait Dan Work Phone: [facility] 03-05-2024 14:26-0400 Body height 182.88 cm MD Kait Dan Work Phone: [facility] 03-03-2024 17:00-0400 Diastolic blood pressure 67 mm[Hg] MD Kait Dan Work Phone: [facility] 03-03-2024 17:00-0400 Heart rate 86 /min MD Kait Dan Work Phone: [facility] 03-03-2024 17:00-0400 Respiratory rate 20 /min MD Kait Dan Work Phone: [facility] 03-03-2024 17:00-0400 SaO2% (BldA) [Mass fraction] 100 % MD Kait Dan Work Phone: [facility] 03-03-2024 17:00-0400 Systolic blood pressure 100 mm[Hg] MD Kait Dan Work Phone: [facility] 03-03-2024 13:45-0400 Body height 182.88 cm MD Kait Dan Work Phone: [facility] 03-03-2024 13:45-0400 Body temperature 97.9 [degF] MD Kait Dan Work Phone: [facility] 03-03-2024 13:45-0400 Body weight 91.5 kg MD Kait Dan Work Phone: [facility] 02-29-2024 09:27-0400 Body height 182.9 cm Mike Montes MD Work Phone: [facility] 02-29-2024 09:27-0400 Body mass index (BMI) [Ratio] 26.85 kg/m2 Mike Montes MD Work Phone: [facility] 02-29-2024 09:27-0400 Body temperature 98.01 [degF] Mike Montes MD Work Phone: [facility] 02-29-2024 09:27-0400 Body weight 89.81 kg Mike Montes MD Work Phone: [facility] 02-29-2024 09:27-0400 Diastolic blood pressure 62 mm[Hg] Mike Montes MD Work Phone: [facility] 02-29-2024 09:27-0400 Heart rate 77 /min Mike Montes MD Work Phone: [facility] 02-29-2024 09:27-0400 Respiratory rate 20 /min Mike Montes MD Work Phone: [facility] 02-29-2024 09:27-0400 SaO2% (BldA) [Mass fraction] 99 % Mike Montes MD Work Phone: [facility] 02-29-2024 09:27-0400 Systolic blood pressure 90 mm[Hg] Mike Montes MD Work Phone: [facility] 02-28-2024 14:52-0400 Body mass index (BMI) [Ratio] 26.65 kg/m2 Guero Tam DO Work Phone: [facility] 02-28-2024 14:52-0400 Body temperature 98.01 [degF] Guero Furlong DO Work Phone: [facility] 02-28-2024 14:52-0400 Body weight 89.13 kg Guero Furlong DO Work Phone: [facility] 02-28-2024 14:52-0400 Diastolic blood pressure 77 mm[Hg] Guero Furlong DO Work Phone: [facility] 02-28-2024 14:52-0400 Heart rate 95 /min Guero Furlong DO Work Phone: [facility] 02-28-2024 14:52-0400 Respiratory rate 18 /min Guero Furlong DO Work Phone: [facility] 02-28-2024 14:52-0400 SaO2% (BldA) [Mass fraction] 98 % Guero Furlong DO Work Phone: [facility] 02-28-2024 14:52-0400 Systolic blood pressure 129 mm[Hg] Guero Furlong DO Work Phone: [facility] 02-21-2024 17:40-0400 Hourly Rounding Mike Simon [facility] 02-21-2024 17:40-0400 Promise to Return Mohamed Simon [facility] 02-21-2024 16:32-0400 Hourly Rounding Mohamed Simon [facility] 02-21-2024 16:32-0400 Promise to Return Mohamed Simon [facility] 02-21-2024 15:00-0400 Hourly Rounding Mohamed Simon [facility] 02-21-2024 15:00-0400 Promise to Return Mohamed Simon [facility] 02-21-2024 10:51-0400 Heart rate 70 /min Mohcarlos Simon [facility] 02-21-2024 10:51-0400 SaO2% (BldA) [Mass fraction] 100 % Mohamed Simon [facility] 02-21-2024 10:47-0400 Body temperature 98.06 [degF] Mohamed Simon [facility] 02-21-2024 10:46-0400 Diastolic blood pressure 63 mm[Hg] Mohcarlos Simon [facility] 02-21-2024 10:46-0400 Mean blood pressure 76 mm[Hg] Mohamed Simon [facility] 02-21-2024 10:46-0400 Systolic blood pressure 101 mm[Hg] Mohcarlos Simon [facility] 02-21-2024 10:15-0400 Blood Pressure Location Mohcarlos Simon [facility] 02-21-2024 10:15-0400 Diastolic blood pressure 58 mm[Hg] Mohamed Simon [facility] 02-21-2024 10:15-0400 Heart rate 76 /min Mohamed Simon [facility] 02-21-2024 10:15-0400 Mean blood pressure 74 mm[Hg] Mohamed Simon [facility] 02-21-2024 10:15-0400 SaO2% (BldA) [Mass fraction] 100 % Mohamed Simon [facility] 02-21-2024 10:15-0400 Systolic blood pressure 106 mm[Hg] Mohamed Simon [facility] 02-21-2024 08:27-0400 Diastolic blood pressure 61 mm[Hg] Mike Montes [facility] 02-21-2024 08:27-0400 Systolic blood pressure 100 mm[Hg] Mike Simon [facility] 02-21-2024 08:25-0400 Heart rate 50 /min Mike Simon [facility] 02-21-2024 07:36-0400 Heart rate 68 /min Mike Simon [facility] 02-21-2024 07:36-0400 SaO2% (BldA) [Mass fraction] 100 % Mike Halean [facility] 02-21-2024 07:36-0400 Mean blood pressure 74 mm[Hg] Mike Montes [facility] 02-21-2024 07:36-0400 Body temperature 97.52 [degF] Mike Montes [facility] 02-21-2024 00:00-0400 Blood Pressure Location Mike Montes [facility] 02-21-2024 00:00-0400 Body temperature 97.52 [degF] Mike Montes [facility] 02-21-2024 00:00-0400 Mean blood pressure 77 mm[Hg] Mike Simon [facility] 02-20-2024 21:16-0400 Heart rate 83 /min Mike Simon [facility] 02-20-2024 19:29-0400 Mean blood pressure 82 mm[Hg] Mike Simon [facility] 02-20-2024 19:29-0400 Body temperature 98.06 [degF] Mike Simon [facility] 02-20-2024 15:37-0400 gluc 104 mg/dL Mohamed Simon [facility] 02-20-2024 11:00-0400 Body temperature 98.42 [degF] Mohamed Simon [facility] 02-20-2024 11:00-0400 gluc 165 mg/dL Mohamed Simon [facility] 02-20-2024 11:00-0400 Mean blood pressure 81 mm[Hg] Mohamed Simon [facility] 02-20-2024 09:36-0400 Heart rate 96 /min Mohamed Simon [facility] 02-20-2024 09:00-0400 gluc 250 mg/dL Mohamed Simon [facility] 02-20-2024 09:00-0400 Respiratory rate 16 /min Mohamed Simon [facility] 02-20-2024 05:00-0400 Respiratory rate 18 /min Mohamed Simon [facility] 02-19-2024 23:00-0400 Respiratory rate 18 /min Mohamed Simon [facility] 02-15-2024 05:17-0400 Heart rate 83 /min Mohamed Simon [facility] 02-15-2024 00:28-0400 Heart rate 83 /min Mohamed Siomn [facility] 02-14-2024 06:15-0400 Heart rate 89 /min Mohamed Simon [facility] 02-12-2024 16:40-0400 Respiratory rate 17 /min Mohamed Simon [facility] 02-12-2024 16:15-0400 Body temperature 97.7 [degF] Mike Montes [facility] 02-12-2024 16:15-0400 Respiratory rate 19 /min Mike Montes [facility] 02-12-2024 16:00-0400 Respiratory rate 18 /min Mike Montes [facility] 02-12-2024 14:46-0400 Body temperature 98.06 [degF] Mike Montes [facility] 01-18-2024 08:56-0400 Body height 182.9 cm Mike Montes MD Work Phone: [facility] 01-18-2024 08:56-0400 Body mass index (BMI) [Ratio] 27.8 kg/m2 Mike Montes MD Work Phone: [facility] 01-18-2024 08:56-0400 Body weight 92.99 kg Mike Montes MD Work Phone: [facility] 01-18-2024 08:56-0400 Diastolic blood pressure 67 mm[Hg] Mike Montes MD Work Phone: [facility] 01-18-2024 08:56-0400 Heart rate 122 /min Mike Montes MD Work Phone: [facility] 01-18-2024 08:56-0400 SaO2% (BldA) [Mass fraction] 100 % Mike Montes MD Work Phone: [facility] 01-18-2024 08:56-0400 Systolic blood pressure 108 mm[Hg] Mike Montes MD Work Phone: [facility] 01-17-2024 12:34-0400 Body height 182.[address] 01-17-2024 12:34-0400 Body mass index (BMI) [Ratio] 28.62 kg/m2 [address] 01-17-2024 12:34-0400 Body weight 95.[address] 01-17-2024 12:34-0400 Diastolic blood pressure 58 mm[Hg] [address] 01-17-2024 12:34-0400 Systolic blood pressure 102 mm[Hg] [address] 11-30-2023 23:10-0400 Body mass index (BMI) [Ratio] 27.86 kg/m2 Guero Furlong DO Work Phone: [facility] 11-30-2023 23:10-0400 Body temperature 97.3 [degF] Guero Furlong DO Work Phone: [facility] 11-30-2023 23:10-0400 Body weight 93.17 kg Guero Furlong DO Work Phone: [facility] [employer] [facility] 11-30-2023 23:10-0400 Diastolic blood pressure 74 mm[Hg] Guero Furlong DO Work Phone: [facility] [employer] [facility] 11-30-2023 23:10-0400 Heart rate 70 /min Guero Furlong DO Work Phone: [facility] [employer] [facility] 11-30-2023 23:10-0400 Respiratory rate 18 /min Guero Furlong DO Work Phone: [facility] [employer] [facility] 11-30-2023 23:10-0400 SaO2% (BldA) [Mass fraction] 98 % Guero Furlong DO Work Phone: [facility] [employer] [facility] 11-30-2023 23:10-0400 Systolic blood pressure 122 mm[Hg] Guero Furlong DO Work Phone: [facility] [employer] [facility] 11-30-2023 08:49-0400 Body height 182.9 cm Mike Montes MD Work Phone: [facility] [employer] [facility] 11-30-2023 08:49-0400 Body mass index (BMI) [Ratio] 28.21 kg/m2 Mike Montes MD Work Phone: [facility] [employer] [facility] 11-30-2023 08:49-0400 Body weight 94.35 kg Mike Montes MD Work Phone: [facility] [employer] [facility] 11-30-2023 08:49-0400 Diastolic blood pressure 78 mm[Hg] Mike Montes MD Work Phone: [facility] [employer] [facility] 11-30-2023 08:49-0400 Heart rate 94 /min Mike Montes MD Work Phone: [facility] [employer] [facility] 11-30-2023 08:49-0400 SaO2% (BldA) [Mass fraction] 99 % Mike Montes MD Work Phone: [facility] [employer] [facility] 11-30-2023 08:49-0400 Systolic blood pressure 109 mm[Hg] Mike Montes MD Work Phone: [facility] 11-24-2023 18:59-0400 Body mass index (BMI) [Ratio] 27.85 kg/m2 Guero Furlong DO Work Phone: [facility] [employer] [facility] 11-24-2023 18:59-0400 Body temperature 98.4 [degF] Guero Furlong DO Work Phone: [facility] [employer] [facility] 11-24-2023 18:59-0400 Body weight 93.17 kg Guero Furlong DO Work Phone: [facility] [employer] [facility] 11-24-2023 18:59-0400 Diastolic blood pressure 70 mm[Hg] Guero Furlong DO Work Phone: [facility] [employer] [facility] 11-24-2023 18:59-0400 Heart rate 68 /min Guero Furlong DO Work Phone: [facility] [employer] [facility] 11-24-2023 18:59-0400 Systolic blood pressure 122 mm[Hg] Guero Furlong DO Work Phone: [facility] [employer] [facility] 11-07-2023 15:50-0400 Body temperature 98.4 [degF] Guero Furlong DO Work Phone: [facility] 11-07-2023 15:50-0400 Diastolic blood pressure 97 mm[Hg] Guero Furlong DO Work Phone: [facility] 11-07-2023 15:50-0400 Heart rate 77 /min Guero Furlong DO Work Phone: [facility] 11-07-2023 15:50-0400 Systolic blood pressure 157 mm[Hg] Guero Furlong DO Work Phone: [facility] 11-03-2023 14:11-0400 Body mass index (BMI) [Ratio] 28.02 kg/m2 Guero Furlong DO Work Phone: [facility] 11-03-2023 14:11-0400 Body temperature 97.7 [degF] Guero Furlong DO Work Phone: [facility] 11-03-2023 14:11-0400 Body weight 93.71 kg Guero Furlong DO Work Phone: [facility] 11-03-2023 14:11-0400 Diastolic blood pressure 76 mm[Hg] Guero Furlong DO Work Phone: [facility] 11-03-2023 14:11-0400 Heart rate 75 /min Guero Furlong DO Work Phone: [facility] 11-03-2023 14:11-0400 Respiratory rate 20 /min Guero Furlong DO Work Phone: [facility] 11-03-2023 14:11-0400 SaO2% (BldA) [Mass fraction] 97 % Guero Furlong DO Work Phone: [facility] 11-03-2023 14:11-0400 Systolic blood pressure 122 mm[Hg] Guero Furlong DO Work Phone: [facility] 10-25-2023 22:00-0400 Body mass index (BMI) [Ratio] 29.7 kg/m2 Guero Furlong [facility] 10-25-2023 22:00-0400 Body temperature 97.59 [degF] Gu[facility]long [facility] 10-25-2023 22:00-0400 Body weight 99.34 kg Guero Furlong DO [facility] 10-25-2023 22:00-0400 Diastolic blood pressure 68 mm[Hg] Guero Furlong DO [facility] 10-25-2023 22:00-0400 Heart rate 70 /min Guero Furlong DO [facility] 10-25-2023 22:00-0400 Respiratory rate 20 /min Guero Furlong DO [facility] 10-25-2023 22:00-0400 SaO2% (BldA) [Mass fraction] 97 % Guero Furlong DO [facility] 10-25-2023 22:00-0400 Systolic blood pressure 128 mm[Hg] Guero Furlong DO [facility] 10-24-2023 10:56-0400 Body height 182.9 cm Raulito Inman MD Work Phone: [facility] 10-24-2023 10:56-0400 Diastolic blood pressure 86 mm[Hg] Raulito Inman MD Work Phone: [facility] 10-24-2023 10:56-0400 Heart rate 104 /min Raulito Inman MD Work Phone: [facility] 10-24-2023 10:56-0400 Systolic blood pressure 134 mm[Hg] Raulito Inman MD Work Phone: [facility] 10-23-2023 09:37-0400 Blood Pressure Location Mike Montes [facility] 10-23-2023 09:37-0400 Diastolic blood pressure 82 mm[Hg] Mike Montes [facility] 10-23-2023 09:37-0400 Heart rate 107 /min Mike Montes [facility] 10-23-2023 09:37-0400 SaO2% (BldA) [Mass fraction] 98 % Mike Montes [facility] 10-23-2023 09:37-0400 Systolic blood pressure 130 mm[Hg] Mike Montes [facility] 10-18-2023 08:26-0400 Diastolic blood pressure 90 mm[Hg] Mike Montes MD Work Phone: [facility] 10-18-2023 08:26-0400 Systolic blood pressure 138 mm[Hg] Mike Montes MD Work Phone: [facility] 10-18-2023 08:25-0400 Body height 182.9 cm Mike Montes MD Work Phone: [facility] 10-18-2023 08:25-0400 Body mass index (BMI) [Ratio] 28.07 kg/m2 Mike Montes MD Work Phone: [facility] 10-18-2023 08:25-0400 Body weight 93.89 kg Mike Montes MD Work Phone: [facility] 10-17-2023 13:51-0400 Body temperature 98.4 [degF] Guero Furlong DO Work Phone: [facility] [employer] [facility] 10-17-2023 13:51-0400 Body weight 93.89 kg Guero Furlong DO Work Phone: [facility] 10-17-2023 13:51-0400 Diastolic blood pressure 70 mm[Hg] Guero Furlong DO Work Phone: [facility] 10-17-2023 13:51-0400 Heart rate 94 /min Guero Furlong DO Work Phone: [facility] 10-17-2023 13:51-0400 Respiratory rate 18 /min Guero Furlong DO Work Phone: [facility] 10-17-2023 13:51-0400 SaO2% (BldA) [Mass fraction] 97 % Guero Furlong DO Work Phone: [facility] 10-17-2023 13:51-0400 Systolic blood pressure 132 mm[Hg] Guero Furlong DO Work Phone: [facility] 10-10-2023 23:33-0400 Body temperature 98.1 [degF] Guero Furlong DO Work Phone: [facility] 10-10-2023 23:33-0400 Diastolic blood pressure 78 mm[Hg] Guero Furlong DO Work Phone: [facility] 10-10-2023 23:33-0400 Heart rate 102 /min Guero Furlong DO Work Phone: [facility] 10-10-2023 23:33-0400 Respiratory rate 18 /min Guero Furlong DO Work Phone: [facility] 10-10-2023 23:33-0400 SaO2% (BldA) [Mass fraction] 98 % Guero Furlong DO Work Phone: [facility] 10-10-2023 23:33-0400 Systolic blood pressure 142 mm[Hg] Guero Furlong DO Work Phone: [facility] 10-06-2023 16:50-0400 Body temperature 98.4 [degF] Guero Furlong DO Work Phone: [facility] 10-06-2023 16:50-0400 Body weight 93.89 kg Guero Furlong DO Work Phone: [facility] 10-06-2023 16:50-0400 Diastolic blood pressure 71 mm[Hg] Guero Furlong DO Work Phone: [facility] 10-06-2023 16:50-0400 Heart rate 98 /min Guero Furlong DO Work Phone: [facility] 10-06-2023 16:50-0400 Respiratory rate 18 /min Guero Furlong DO Work Phone: [facility] 10-06-2023 16:50-0400 SaO2% (BldA) [Mass fraction] 96 % Guero Furlong DO Work Phone: [facility] 10-06-2023 16:50-0400 Systolic blood pressure 117 mm[Hg] Guero Furlong DO Work Phone: [facility] 07-31-2023 12:00-0500 Diastolic blood pressure 63 mm[Hg] DO Teresa Kuns Work Phone: [facility] 07-31-2023 12:00-0500 Heart rate 75 /min DO Teresa Kuns Work Phone: [facility] 07-31-2023 12:00-0500 Systolic blood pressure 108 mm[Hg] DO Teresa Kuns Work Phone: [facility] 07-31-2023 08:33-0500 Respiratory rate 18 /min DO Teresa Kuns Work Phone: [facility] 07-12-2023 18:03-0500 Diastolic blood pressure 73 mm[Hg] DO Teresa Kuns Work Phone: [facility] 07-12-2023 18:03-0500 Heart rate 76 /min DO Teresa Kuns Work Phone: [facility] 07-12-2023 18:03-0500 Respiratory rate 20 /min DO Teresa Lynch Work Phone: [facility] 07-12-2023 18:03-0500 SaO2% (BldA) [Mass fraction] 98 % DO Teresa Lynch Work Phone: [facility] 07-12-2023 18:03-0500 Systolic blood pressure 125 mm[Hg] DO Teresa Lynch Work Phone: [facility] 07-12-2023 16:15-0500 Body height 182.88 cm DO Teresa Lynch Work Phone: [facility] 07-12-2023 16:15-0500 Body temperature 98.9 [degF] DO Teresa Lynch Work Phone: [facility] 07-12-2023 16:15-0500 Body weight 99.25 kg DO Teresa Lynch Work Phone: [facility] 06-02-2023 10:56-0500 Blood Pressure Location Yeyo ROWE [facility] 06-02-2023 10:56-0500 Body temperature 96.98 [degF] Yeyo ROWE [facility] 06-02-2023 10:56-0500 Diastolic blood pressure 84 mm[Hg] Yeyo ROWE [facility] 06-02-2023 10:56-0500 Heart rate 68 /min Yeyo ROWE [facility] 06-02-2023 10:56-0500 Systolic blood pressure 124 mm[Hg] Yeyo ROWE [facility] 04-06-2023 13:15-0400 Body height 180.34 cm Teresa Lynch Other [facility] Other 04-06-2023 13:15-0400 Body mass index (BMI) [Ratio] 29.43 kg/m2 Teresa Lynch Other [facility] Other 04-06-2023 13:15-0400 Body weight 95.71 kg Teresa Lynch Other [facility] Other 04-06-2023 13:15-0400 Diastolic blood pressure 70 mm[Hg] Teresa Lynch Other [facility] Other 04-06-2023 13:15-0400 Respiratory rate 18 /min Teresa Lynch Other [facility] Other 04-06-2023 13:15-0400 SaO2% (BldA) [Mass fraction] 97 % Teresa Lynch Other [facility] Other 04-06-2023 13:15-0400 Systolic blood pressure 100 mm[Hg] Teresa Lynch Other [facility] Other 03-15-2023 08:30-0400 Body height 180.34 cm Teresa Lynch Other [facility] Other 03-15-2023 08:30-0400 Body mass index (BMI) [Ratio] 29.01 kg/m2 Teresa Lynch Other [facility] Other 03-15-2023 08:30-0400 Body weight 94.35 kg Teresa Lynch Other [facility] Other 03-15-2023 08:30-0400 Diastolic blood pressure 62 mm[Hg] Teresa Jettcamille Other [place] [employer] Other 03-15-2023 08:30-0400 Respiratory rate 16 /min Teresa Jettcamille Other [place] [employer] Other 03-15-2023 08:30-0400 SaO2% (BldA) [Mass fraction] 97 % Teresa Jettcamille Other [facility] [employer] Other 03-15-2023 08:30-0400 Systolic blood pressure 88 mm[Hg] Teresa Lynch Other [facility] [employer] Other 02-15-2023 10:04-0400 Body height 182.88 cm Teresagorge Lynch Work Phone: [facility] 250 DO Work Phone: 02-15-2023 10:04-0400 Body mass index (BMI) [Ratio] 28.62 kg/m2 Teresa Lynch Work Phone: [facility] 250 DO Work Phone: 02-15-2023 10:04-0400 Body surface area Derived from formula 2.18 m2 Teresa Mari Lynch Work Phone: [facility] 250 DO Work Phone: 02-15-2023 10:04-0400 Body weight 95.71 kg Teresa Mari Lynch Work Phone: [facility] 250 DO Work Phone: 02-15-2023 10:04-0400 Diastolic blood pressure 70 mm[Hg] Teresa Mari Lynch Work Phone: [facility] [facility] DO Work Phone: 02-15-2023 10:04-0400 Heart rate 76 /min Teresa Lynch Work Phone: [facility] [facility] DO Work Phone: 02-15-2023 10:04-0400 Systolic blood pressure 102 mm[Hg] Teresa Lynch Work Phone: [facility] [facility] DO Work Phone: 01-30-2023 10:23-0400 Blood Pressure Location Yeyo ROWE [facility] 01-30-2023 10:23-0400 Diastolic blood pressure 74 mm[Hg] Yeyo ROWE [facility] 01-30-2023 10:23-0400 Heart rate 68 /min Yeyo ROWE [facility] 01-30-2023 10:23-0400 Respiratory rate 16 /min Yeyo ROWE [facility] 01-30-2023 10:23-0400 Systolic blood pressure 130 mm[Hg] Yeyo ROWE [facility] 01-11-2023 15:08-0400 Body height 180.34 cm Teresa Lynch Work Phone: [facility] [employer] 600 DO Work Phone: 01-11-2023 15:08-0400 Body mass index (BMI) [Ratio] 30.13 kg/m2 Teresa Lynch Work Phone: [facility] 600 DO Work Phone: 01-11-2023 15:08-0400 Body surface area Derived from formula 2.18 m2 Teresa Lynch Work Phone: [facility] [employer] 600 DO Work Phone: 01-11-2023 15:08-0400 Body weight 97.98 kg Teresa Mari Fraustocamille Work Phone: [facility] [address] DO Work Phone: 01-11-2023 15:08-0400 Diastolic blood pressure 86 mm[Hg] Teresa Fraustocamille Work Phone: [facility] [employer] [address] DO Work Phone: 01-11-2023 15:08-0400 Heart rate 74 /min Teresa Guerra Rory Work Phone: [facility] 600 DO Work Phone: 01-11-2023 15:08-0400 Systolic blood pressure 122 mm[Hg] Teersa Mari Fraustos [facility] Work Phone: 12-01-2022 12:45-0400 Body height 180.34 cm Teresa Lynch Other [facility] Other 12-01-2022 12:45-0400 Body mass index (BMI) [Ratio] 29.73 kg/m2 Teresa Lynch Other [facility] Other 12-01-2022 12:45-0400 Body weight 96.71 kg Teresa Lynch Other [employer] [facility] [employer] Other 12-01-2022 12:45-0400 Diastolic blood pressure 70 mm[Hg] Teresa Lynch Other [place] [employer] Other 12-01-2022 12:45-0400 Respiratory rate 18 /min Teresa Lynch Other [facility] Other 12-01-2022 12:45-0400 SaO2% (BldA) [Mass fraction] 94 % Teresa Lynch Other [facility] Other 12-01-2022 12:45-0400 Systolic blood pressure 122 mm[Hg] Teresa Lynch Other [facility] Other 11-23-2022 11:38-0400 Blood Pressure Location Yeyo Hullabalu [facility] 11-23-2022 11:38-0400 Diastolic blood pressure 85 mm[Hg] Yeyo Hullabalu [facility] 11-23-2022 11:38-0400 Heart rate 76 /min Yeyo Hullabalu [facility] 11-23-2022 11:38-0400 Systolic blood pressure 130 mm[Hg] Yeyo Hullabalu [facility] 07-04-2022 10:30-0500 Body height 180.34 cm Teresa Lynch Other [facility] Other 07-04-2022 10:30-0500 Body mass index (BMI) [Ratio] 29.43 kg/m2 Teresa Lynch Other [facility] Other 07-04-2022 10:30-0500 Body weight 95.71 kg Teresa Lynch Other [facility] Other 07-04-2022 10:30-0500 Diastolic blood pressure 86 mm[Hg] Teresa Lynch Other [facility] Other 07-04-2022 10:30-0500 Respiratory rate 16 /min Teresa Lynch Other [facility] Other 07-04-2022 10:30-0500 Systolic blood pressure 146 mm[Hg] Teresa Lynch Other [facility] Other 02-15-2022 13:45-0400 Body height 180.34 cm Teresa Lynch Other [facility] Other 02-15-2022 13:45-0400 Body mass index (BMI) [Ratio] 30.12 kg/m2 Teresa Lynch Other [facility] Other 02-15-2022 13:45-0400 Body weight 97.98 kg Teresa Lynch Other [facility] Other 02-15-2022 13:45-0400 Diastolic blood pressure 62 mm[Hg] Teresa Lynch Other [facility] Other 02-15-2022 13:45-0400 Respiratory rate 16 /min Teresa Lynch Other [facility] Other 02-15-2022 13:45-0400 SaO2% (BldA) [Mass fraction] 96 % Teresa Lynch Other [facility] Other 02-15-2022 13:45-0400 Systolic blood pressure 100 mm[Hg] Teresa Lynch Other [facility] Other 10-26-2021 10:01-0400 Body height 180.34 cm Teresa Lynch Work Phone: [facility] 250 DO Work Phone: 10-26-2021 10:01-0400 Body mass index (BMI) [Ratio] 29.99 kg/m2 Teresagorge Fraustocamille Work Phone: [facility] 250 DO Work Phone: 10-26-2021 10:01-0400 Body surface area Derived from formula 2.17 m2 Teresa Guerra Rory Work Phone: [facility] [facility] DO Work Phone: 10-26-2021 10:01-0400 Body weight 97.52 kg Teresa P Rory Work Phone: [facility] 250 DO Work Phone: 10-26-2021 10:01-0400 Diastolic blood pressure 70 mm[Hg] Teresa Mari Rory Work Phone: [facility] [facility] DO Work Phone: 10-26-2021 10:01-0400 Heart rate 68 /min Teresagorge Fraustocamille Work Phone: [facility] [facility] DO Work Phone: 10-26-2021 10:01-0400 Systolic blood pressure 104 mm[Hg] Teresa P Rory Work Phone: [facility] [facility] DO Work Phone: 10-19-2021 12:20-0400 Body height 180.34 cm [employer] Other [facility] [employer] Other 10-19-2021 12:20-0400 Body mass index (BMI) [Ratio] 30.65 kg/m2 [employer] Other [facility] [employer] Other 10-19-2021 12:20-0400 Body temperature 96.8 [degF] [employer] Other [facility] [employer] Other 10-19-2021 12:20-0400 Body weight 99.7 kg Amina Fagan Other [facility] Other 10-19-2021 12:20-0400 Diastolic blood pressure 71 mm[Hg] Amina Kinseys Other [facility] Other 10-19-2021 12:20-0400 Respiratory rate 18 /min Amina Kinseys Other [facility] Other 10-19-2021 12:20-0400 SaO2% (BldA) [Mass fraction] 98 % Amina Fagan Other [facility] Other 10-19-2021 12:20-0400 Systolic blood pressure 111 mm[Hg] Amina Kinseys Other [facility] Other 07-27-2021 14:00-0500 Body height 180.34 cm Teresa Lynch Other [facility] Other 07-27-2021 14:00-0500 Body mass index (BMI) [Ratio] 30.4 kg/m2 Teresa Lynch Other [facility] Other 07-27-2021 14:00-0500 Body weight 98.88 kg Teresa Lynch Other [facility] Other 07-27-2021 14:00-0500 Diastolic blood pressure 76 mm[Hg] Teresa Lynch Other [facility] Other 07-27-2021 14:00-0500 Respiratory rate 18 /min Teresa Lynch Other [facility] Other 07-27-2021 14:00-0500 SaO2% (BldA) [Mass fraction] 98 % Teresa Lynch Other [facility] Other 07-27-2021 14:00-0500 Systolic blood pressure 112 mm[Hg] Teresa Lynch Other [facility] Other Encounters Encounter Date Encounter Type Care Provider Facility Start: 02-27-2025 End: 02-27-2025 Office outpatient new 45 minutes Mike Montes MD Work Phone: [facility] Comment on above: Critical limb ischem ia of left lower extremity with gangrene ([facility]) (Primary Dx); Hx of right BKA ([facility]); Cigarette smoker Start: 02-27-2025 End: 02-27-2025 [facility] Start: 02-05-2025 End: 02-05-2025 ambulatory [facility] Start: 02-05-2025 End: 02-05-2025 Subsequent hospital visit by physician Fabiana Pinon Ne Admin Room [facility] Comment on above: Chest pain, unspecif ied type Start: 01-31-2025 End: 01-31-2025 ambulatory Yeyo ROWE Facility:[facility] Start: 01-31-2025 End: 01-31-2025 Patient encounter procedure Yeyo ROWE [facility] Start: 01-02-2025 End: 01-02-2025 Telephone encounter Baylee Meyers Start: 11-05-2024 End: 11-05-2024 ambulatory Teresa Lynch DO Work Phone: [facility] Work Phone: Start: 11-05-2024 End: 11-05-2024 Teresa Lynch DO Work Phone: [facility] Work Phone: Start: 11-05-2024 End: 11-05-2024 ambulatory Teresa Lynch DO Work Phone: [facility] Work Phone: Start: 11-05-2024 End: 11-05-2024 Teresa Lynch DO Work Phone: [facility] [facility] [place] Work Phone: Start: 10-26-2024 End: 10-26-2024 Patient encounter procedure Teresa Lynch DO Work Phone: [facility] Main [place] Work Phone: Start: 10-26-2024 End: 10-26-2024 Teresa Lynch DO Work Phone: [facility] Main [place] Work Phone: Start: 10-26-2024 End: 10-26-2024 ambulatory Teresa Lynch DO Work Phone: [facility] Work Phone: Start: 10-10-2024 End: 10-11-2024 ambulatory Teresa Lynch Facility:[facility] Start: 10-10-2024 End: 10-11-2024 Evaluation and management of inpatient Teresa Lynch DO Work Phone: [facility]-4 [place] [facility] Work Phone: Start: 10-10-2024 observation encounter Teresa ramirez DO Work Phone: [facility] Work Phone: Start: 10-10-2024 End: 10-11-2024 Teresa Lynch DO Work Phone: [facility] [place] [facility] Work Phone: Start: 10-04-2024 ambulatory MARYBEL Ruizi ty:[facility] Start: 09-27-2024 End: 09-27-2024 ambulatory Yeyo ROWE Facility:[facility] Start: 08-30-2024 End: 08-30-2024 ambulatory Teresa Lynch DO Work Phone: [facility] Work Phone: Start: 08-30-2024 End: 08-30-2024 Patient encounter procedure Teresagorge Lynch DO Work Phone: [facility] [place] Work Phone: Start: 08-30-2024 End: 08-30-2024 Teresa Rory DO Work Phone: [facility] [place] Work Phone: Start: 08-11-2024 Non-patient / Non-visit Teresa Rory DO Work Phone: [facility] [place] Work Phone: Start: 08-11-2024 Teresagorge Lynch DO Work Phone: [facility] Work Phone: Start: 08-11-2024 End: 08-13-2024 Evaluation and management of inpatient Teresagorge Lynch DO Work Phone: [facility]-3 [place] [facility] Work Phone: Start: 08-11-2024 End: 08-13-2024 Teresa Jetts DO Work Phone: [facility] [place] [facility] Work Phone: Start: 08-02-2024 End: 08-02-2024 ambulatory MARYBEL VANG Facility:[facility] Start: 08-02-2024 End: 08-02-2024 Patient encounter procedure [facility] Start: 07-24-2024 Non-patient / Non-visit Teresa Lynch DO Work Phone: [facility] Work Phone: Start: 07-23-2024 End: 07-23-2024 Discharged Recurring Teresa Lynch DO Work Phone: [facility]-Physical Therapy [place] Start: 07-23-2024 Registered Recurring Teresa Frausto s DO Work Phone: [facility] [place] Start: 07-23-2024 End: 07-23-2024 ambulatory Teresa Lynch DO Work Phone: [facility] Work Phone: Start: 05-27-2024 End: 05-27-2024 ambulatory Yeyo ROWE Facility:[facility] Start: 05-27-2024 End: 05-27-2024 Lab Drop off Yeyo ROWE [facility] Start: 05-27-2024 End: 05-27-2024 ambulatory Yeyo ROWE Facility:[facility] Start: 05-27-2024 End: 05-27-2024 Patient encounter procedure Yeyo ROWE [facility] Start: 05-07-2024 End: 05-07-2024 Patient encounter procedure Teresa Lynch DO Work Phone: [facility] [place] Work Phone: Start: 04-24-2024 End: 04-24-2024 ambulatory Kait Dan MD Work Phone: [facility] Work Phone: Start: 04-24-2024 End: 04-24-2024 Patient encounter procedure Kait Dan MD Work Phone: [facility] Rehab and Spine Work Phone: Start: 04-23-2024 Non-patient / Non-visit Kait Dan MD Work Phone: [facility] Gastroenterology Work Phone: Start: 04-23-2024 End: 04-23-2024 Admission to same day surgery center Kait Dan MD Work Phone: [facility]-Digestive Health Work Phone: Start: 04-23-2024 End: 04-23-2024 ambulatory Kait Dan MD Work Phone: [facility] Work Phone: Start: 04-19-2024 Non-patient / Non-visit Kait Dan MD Work Phone: [facility] Family Medicine [place] Work Phone: Start: 04-04-2024 End: 04-04-2024 ambulatory MD Kait Dan Work Phone: [facility] Work Phone: Start: 04-04-2024 End: 04-04-2024 Patient encounter procedure MD Kait Dan Work Phone: [facility] Family Medicine [place] Work Phone: Start: 03-29-2024 Non-patient / Non-visit MD Jeremi Dan Work Phone: [facility] Family Medicine [place] Work Phone: Start: 03-22-2024 End: 03-22-2024 Telephone encounter Moncho blum Comment on above: Blood Sugar Problem (High blood sugars) Start: 03-21-2024 End: 03-21-2024 ambulatory MD Kait Dan Work Phone: [facility] Work Phone: Comment on above: History of right bel ow knee amputation ([facility]-HCC) (Primary Dx) Start: 03-21-2024 End: 03-21-2024 Patient encounter procedure MD Kait Dan Work Phone: [facility] G[facility] Work Phone: Start: 03-21-2024 End: 03-21-2024 MD Kait Dan Work Phone: [facility] Work Phone: Start: 03-19-2024 End: 03-19-2024 ambulatory Guero Tam DO Work Phone: [facility] Internal Medicine - Family Medicine Comment on above: Diabetic polyneuropa thy associated with type 2 diabetes mellitus ([facility]-HCC) (Primary Dx); Encounter for orthopedic aftercare following surgical amputation; Other abnormalities of gait and mobility; Restless leg syndrome Start: 03-15-2024 End: 03-15-2024 ambulatory Guero Tam DO Work Phone: [facility] Internal Medicine - Family Medicine Comment on above: Diabetic polyneuropa thy associated with type 2 diabetes mellitus ([facility]-HCC) (Primary Dx); Disorientation; Other abnormalities of gait and mobility; Status post partial amputation of right foot ([facility]-HCC); Atherosclerosis of [place] coronary artery of ely shoshone heart without angina pectoris; Atrial fibrillation ([facility]); Primary hypertension Start: 03-15-2024 End: 03-15-2024 Telephone encounter Nancy Kim [facility] [place] [facility] Start: 03-12-2024 ambulatory [facility] Start: 03-10-2024 Non-patient / Non-visit MD Jeremi Dan Work Phone: [facility] Work Phone: Start: 03-10-2024 MD Kait richmond Work Phone: [facility] Work Phone: Start: 03-09-2024 Non-patient / Non-visit MD Jeremi Dan Work Phone: [facility] Work Phone: Start: 03-09-2024 MD Kait richmond Work Phone: [facility] Work Phone: Start: 03-08-2024 End: 03-13-2024 Evaluation and management of inpatient MD Kait Dan Work Phone: [facility] Work Phone: Start: 03-08-2024 End: 03-13-2024 MD Kait Dan Work Phone: [facility]3 [place] [facility] Work Phone: Start: 03-08-2024 End: 03-10-2024 Emergency department patient visit [facility] Start: 03-05-2024 Non-patient / Non-visit MD Jeremi Dan Work Phone: [facility] Work Phone: Start: 03-05-2024 MD Kait richmond Work Phone: [facility] Work Phone: Start: 03-04-2024 End: 03-06-2024 Evaluation and management of inpatient MD Kait Dan Work Phone: [facility] [place] [facility] Work Phone: Start: 03-04-2024 End: 03-06-2024 MD Kait Dan Work Phone: [facility] [place] [facility] Work Phone: Start: 03-03-2024 Evaluation and management of inpatient MD Kait Dan Work Phone: [facility] [place] [facility] Work Phone: Start: 03-03-2024 observation encounter MD Vikas Dan Work Phone: [facility] Work Phone: Start: 02-29-2024 End: 02-29-2024 Postop follow up visit related to original px Mike Montes MD Work Phone: [facility] Vascular Surgery Comment on above: PAD (peripheral iliana ry disease) ([facility]-H[facility]) (Primary Dx) Start: 02-28-2024 End: 02-28-2024 ambulatory Guero Tam DO Work Phone: [facility] Medicine - Family Medicine Comment on above: Encounter for orthop edic aftercare following surgical amputation (Primary Dx); Cigarette smoker; Diabetic polyneuropathy associated with type 2 diabetes mellitus ([facility]); Other abnormalities of gait and mobility; Muscle spasm Start: 02-23-2024 End: 02-28-2024 ambulatory Guero Mckayleeasim BRICENO Work Phone: [facility] - Family Medicine Comment on above: Encounter for orthop edic aftercare following surgical amputation (Primary Dx); Other abnormalities of gait and mobility; BPH with obstruction/lower urinary tract symptoms; Diabetic polyneuropathy associated with type 2 diabetes mellitus ([facility]); Atherosclerosis of [place] coronary artery of [place] sh[place] heart without angina pectoris; Heart failure, unspecified HF chronicity, unspecified heart failure type ([facility]); Primary hypertension; Peripheral arterial disease ([facility]); Chronic obstructive pulmonary disease, unspecified COPD type ([facility]); Gastroesophageal reflux disease, unspecified whether esophagitis present; Muscle weakness (generalized) Start: 02-12-2024 End: 02-21-2024 Evaluation and management of inpatient MD Mike Montes Facility:[facility] Start: 02-12-2024 ambulatory Yeyo Ley ty:[facility] Start: 02-12-2024 ambulatory Mike Ley ty:[facility] Start: 02-12-2024 End: 02-21-2024 Evaluation and management of inpatient Mike Montes [facility] Start: 02-08-2024 Non-patient / Non-visit MD Jeremi Dan Work Phone: [facility] Work Phone: Start: 02-08-2024 MD Kait richmond Work Phone: [facility] Work Phone: Start: 02-01-2024 End: 02-01-2024 Clinisync Result Encounter Mike Montes MD Work Phone: [facility] External [facility] Unsolicited Start: 02-01-2024 End: 02-01-2024 Clinisync Result Encounter Mike Montes MD Work Phone: [facility] External Department Unsolicited Start: 02-01-2024 Non-patient / Non-visit MD Jeremi Dan Work Phone: [facility] Work Phone: Start: 02-01-2024 MD Kait richmond Work Phone: [facility] Work Phone: Start: 01-24-2024 Non-patient / Non-visit MD Jeremi Dan Work Phone: [facility] [place] Work Phone: Start: 01-24-2024 MD Kait richmond Work Phone: [facility] [place] Work Phone: Start: 01-18-2024 End: 01-18-2024 Office outpatient visit 25 minutes Mike Montes MD [facility] Comment on above: 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 (CMS-HCC) (Primary Dx); Cigarette smoker Start: 01-17-2024 End: 01-17-2024 Subsequent hospital visit by physician Fabiana Allred Echo/Vasc Room 2 [facility] Comment on above: Shortness of breath Start: 01-08-2024 End: 01-08-2024 ambulatory MD Mike Montes Facility:[facility] Start: 01-03-2024 Non-patient / Non-visit MD Jeremi Dan Work Phone: [facility] [place] Work Phone: Start: 01-03-2024 MD Kait richmond Work Phone: [facility] [place] Work Phone: Start: 01-01-2024 End: 01-01-2024 ambulatory [facility] Amb[facility] Start: 01-01-2024 End: 01-01-2024 Encounter for preprocedural cardiovascular examination [facility] Ambulatory Start: 12-31-2023 Non-patient / Non-visit MD Jeremi Dan Work Phone: [facility] Work Phone: Start: 12-31-2023 MD Kait richmond Work Phone: [facility] Work Phone: Start: 12-30-2023 Non-patient / Non-visit MD Jeremi Dan Work Phone: [facility] Work Phone: Start: 12-30-2023 MD Kait richmond Work Phone: [facility] Work Phone: Start: 12-28-2023 Non-patient / Non-visit MD Jeremi Dan Work Phone: [facility] [place] Work Phone: Start: 12-28-2023 MD Kait richmond Work Phone: [facility] [place] Work Phone: Start: 12-25-2023 Non-patient / Non-visit MD Jeremi Dan Work Phone: [facility] Work Phone: Start: 12-25-2023 MD Kait richmond Work Phone: [facility] Work Phone: Start: 12-23-2023 Non-patient / Non-visit MD Jeremi Dan Work Phone: [facility] Work Phone: Start: 12-23-2023 MD Kait richmond Work Phone: [facility] Work Phone: Start: 12-22-2023 Non-patient / Non-visit MD Jeremi Dan Work Phone: [facility] Work Phone: Start: 12-22-2023 MD Kait richmond Work Phone: [facility] Work Phone: Start: 12-21-2023 Non-patient / Non-visit MD Jeremi Dan Work Phone: [facility] Work Phone: Start: 12-21-2023 MD Kait richmond Work Phone: [facility] Work Phone: Start: 12-21-2023 End: 12-21-2023 Office outpatient visit 25 minutes Mike Montes MD Work Phone: [facility] Comment on above: 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 (CMS-HCC) (Primary Dx) Start: 12-15-2023 End: 12-15-2023 ambulatory DO Teresa Lynch Work Phone: [facility] Work Phone: Start: 12-15-2023 End: 12-15-2023 Departed Referred DO Teresa Rory Work Phone: [facility] Start: 12-15-2023 End: 12-15-2023 MD Kait Dan Work Phone: [facility] Start: 12-10-2023 Non-patient / Non-visit MD Jeremi Dan Work Phone: [facility] Work Phone: Start: 12-10-2023 MD Kait richmond Work Phone: [facility] Work Phone: Start: 12-10-2023 Non-patient / Non-visit DO Phillip Lynch Work Phone: [facility] Work Phone: Start: 12-10-2023 MD Kait richmond Work Phone: [facility] Work Phone: Start: 12-09-2023 Non-patient / Non-visit DO Phillip Lynch Work Phone: [facility] Work Phone: Start: 12-09-2023 MD Kait richmond Work Phone: [facility] Work Phone: Start: 11-30-2023 End: 11-30-2023 ambulatory Guero G Anel DO Work Phone: [facility] - Family Medicine Comment on above: 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 ([facility]-HCC) (Primary Dx); 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 (CMS-HCC); Delayed surgical wound healing of foot amputation stump (CMS-HCC); Other abnormalities of gait and mobility Start: 11-30-2023 End: 11-30-2023 Postop follow up visit related to original px Mike Montes MD Work Phone: [facility] Vascular Surgery and Wound Care Comment on above: 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 (CMS-HCC) (Primary Dx); Cigarette smoker motivated to quit Start: 11-26-2023 Non-patient / Non-visit DO Phillip pennington flo.do Work Phone: [facility] Work Phone: Start: 11-24-2023 End: 11-24-2023 ambulatory Guero G Anel DO Work Phone: [facility] Internal Medicine - Family Medicine Comment on above: Status post partial amputation of right foot ([facility]) (Primary Dx); Other abnormalities of gait and mobility; Leg edema; Primary hypertension; Hypotension due to drugs; 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); Diabetic polyneuropathy associated with type 2 diabetes mellitus (CMS-HCC) Start: 11-23-2023 End: 11-23-2023 ambulatory [facility] Start: 11-15-2023 End: 11-15-2023 [facility] Start: 11-15-2023 Non-patient / Non-visit DO Phillip pennington flo.do Work Phone: [facility] Work Phone: Start: 11-14-2023 End: 11-14-2023 Evaluation and management of inpatient MIKE MONTES Start: 11-10-2023 End: 11-10-2023 Telephone encounter Franny Yu MD Work Phone: [facility] Start: 11-07-2023 End: 11-14-2023 Evaluation and management of inpatient [facility] Start: 11-07-2023 End: 11-19-2023 ambulatory Guero Tam DO Work Phone: [facility] - Family Medicine Comment on above: Peripheral arterial disease (CMS-HCC) (Primary Dx); Delayed surgical wound healing of foot amputation stump (CMS-HCC); Other abnormalities of gait and mobility; Status post partial amputation of right foot (CMS-HCC); Pressure ulcer of right ankle, stage 3 (CMS-HCC); Type 2 diabetes mellitus with stage 4 chronic kidney disease, without long-term current use of insulin (CMS-HCC) Start: 11-07-2023 End: 11-14-2023 Evaluation and management of inpatient [facility] Start: 11-03-2023 End: 11-10-2023 ambulatory Guero Tam DO Work Phone: [facility] - Family Medicine Comment on above: Status post partial amputation of right foot (CMS-HCC) (Primary Dx); Pressure ulcer of right ankle, stage 3 (CMS-HCC); Other abnormalities of gait and mobility; Delayed surgical wound healing of foot amputation stump (CMS-HCC) Start: 10-25-2023 End: 10-30-2023 ambulatory [facility] DO [facility] Comment on above: Status post partial amputation of right foot (CMS-HCC) (Primary Dx); Osteomyelitis of right foot, unspecified type (CMS-HCC); Muscle weakness (generalized); Other abnormalities of gait and mobility; Chronic obstructive pulmonary disease, unspecified COPD type (CMS-HCC); Peripheral arterial disease (CMS-HCC) Start: 10-24-2023 Preoperative state Fabiana 1 [facility] Start: 10-24-2023 Encounter for preprocedural cardiovascular examination [facility] Start: 10-24-2023 End: 10-24-2023 Office outpatient visit 25 minutes Raulito Inman MD Work Phone: [facility] Comment on above: History of PTCA; Hyperlipidemia, unspecified hyperlipidemia type; Encounter for pre-operative cardiovascular clearance; Former smoker Start: 10-24-2023 End: 10-24-2023 Patient encounter status Raulito Inman MD Work Phone: [facility] Work Phone: Start: 10-23-2023 End: 10-23-2023 ambulatory MD Mike Montes Facility:[facility] Start: 10-23-2023 End: 10-23-2023 Patient encounter procedure Mike Montes [facility] Start: 10-19-2023 End: 10-19-2023 ambulatory MD Mike Montes Facility:[facility] Start: 10-19-2023 End: 10-19-2023 Patient encounter procedure Mike Montes [facility] Start: 10-18-2023 End: 10-18-2023 [facility]phone encounter [facility] Start: 10-18-2023 End: 10-18-2023 Office outpatient new 45 minutes Mike Montes MD Work Phone: [facility] Comment on above: 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 ([facility]-HCC) (Primary Dx); Poor circulation; Heavy tobacco smoker [...] Dx); Other acute osteomyelitis of right foot ([facility]); Status post partial amputation of right foot ([facility]); Chronic obstructive pulmonary disease, unspecified COPD type ([facility]); Abscess of right foot; Type 2 diabetes mellitus with stage 4 chronic kidney disease, without long-term current use of insulin ([facility]) Start: 10-06-2023 End: 10-07-2023 ambulatory Guero Tam DO Work Phone: [facility] - Family Medicine Comment on above: Abscess of right jono t (Primary Dx); Status post partial amputation of right foot ([facility]); Type 2 diabetes mellitus with stage 4 chronic kidney disease, without long-term current use of insulin ([facility]); Atherosclerosis of [place] coronary artery of [place] heart without angina pectoris; Bacterial sepsis ([facility]); Other acute osteomyelitis of right foot ([facility]); Chronic obstructive pulmonary disease, unspecified COPD type ([facility] Cigarette smoker; BPH with obstruction/lower urinary tract symptoms; Gastroesophageal reflux disease, unspecified whether esophagitis present; Restless leg syndrome; Hyperlipidemia, unspecified hyperlipidemia type; Carpal tunnel syndrome, unspecified laterality; Heart failure, unspecified HF chronicity, unspecified heart failure type ([facility]) Start: 10-06-2023 Non-patient / Non-visit DO Phillip Lynch Work Phone: [facility] Work Phone: Start: 10-05-2023 End: 10-05-2023 ambulatory DO Teresa Lynch Work Phone: [facility] Work Phone: Start: 10-05-2023 End: 10-05-2023 Departed Referred DO Teresa Lynch Work Phone: [facility] Start: 10-05-2023 Non-patient / Non-visit DO Phillip Lynch Work Phone: [facility] Work Phone: Start: 10-04-2023 Non-patient / Non-visit DO Phillip an Kuns Work Phone: [facility] Work Phone: Start: 10-03-2023 Non-patient / Non-visit DO Phillip an Kuns Work Phone: [facility] Work Phone: Start: 10-02-2023 End: 10-02-2023 ambulatory DO Teresa Kuns Work Phone: [facility] Work Phone: Start: 10-02-2023 End: 10-02-2023 Departed Referred DO Teresa Kuns Work Phone: [facility] Start: 10-02-2023 Non-patient / Non-visit DO Phillip an Kuns Work Phone: [facility] Work Phone: Start: 10-01-2023 Non-patient / Non-visit DO Phillip an Kuns Work Phone: [facility] Work Phone: Start: 09-30-2023 Non-patient / Non-visit DO Phillip an Kuns Work Phone: [facility] Work Phone: Start: 09-27-2023 Non-patient / Non-visit DO Phillip an Kuns Work Phone: [facility] Work Phone: Start: 09-21-2023 End: 09-21-2023 ambulatory DO Teresa Kuns Work Phone: [facility] Work Phone: Start: 09-21-2023 End: 09-21-2023 Departed Referred DO Teresa Kuns Work Phone: [facility] Start: 09-21-2023 Non-patient / Non-visit DO Phillip an Kuns Work Phone: [facility] Work Phone: Start: 09-18-2023 Non-patient / Non-visit DO Phillip an Kuns Work Phone: [facility] Work Phone: Start: 09-08-2023 End: 09-08-2023 ambulatory Yeyo ROWE Facility:[facility] Start: 09-08-2023 End: 09-08-2023 Patient encounter procedure Yeyo ROWE [facility] Start: 08-10-2023 Non-patient / Non-visit DO Phillip an Kuns Work Phone: [facility] Work Phone: Start: 08-08-2023 Non-patient / Non-visit DO Phillip an Kuns Work Phone: [facility] Work Phone: Start: 08-07-2023 Non-patient / Non-visit DO Phillip an Kuns Work Phone: [facility] Work Phone: Start: 08-06-2023 Non-patient / Non-visit DO Phillip an Kuns Work Phone: [facility] Work Phone: Start: 08-05-2023 Non-patient / Non-visit DO Phillip an Kuns Work Phone: [facility] Work Phone: Start: 08-04-2023 Non-patient / Non-visit DO Phillip an Kuns Work Phone: [facility] Work Phone: Start: 08-03-2023 Non-patient / Non-visit DO Phillip Lynch Work Phone: [facility] Work Phone: Start: 07-31-2023 Registered Recurring DO Teresa Lynch Work Phone: [facility] Work Phone: Start: 07-26-2023 Non-patient / Non-visit DO Phillip Lynch Work Phone: [facility] Work Phone: Start: 07-12-2023 End: 07-12-2023 Emergency department patient visit DO Teresa Lynch Work Phone: [facility] Work Phone: Start: 07-07-2023 End: 07-07-2023 ambulatory Teresa Lynch Other [facility] [facility] [employer] Other Start: 07-07-2023 Telephone encounter Teresa Rory [facility] Start: 07-03-2023 End: 07-03-2023 ambulatory Yeyo ROWE Facility:[facility] Start: 06-26-2023 End: 06-26-2023 ambulatory Teresa Lynch Other [employer] [facility] [employer] Other Start: 06-26-2023 Telephone encounter Teresa Lynch [facility] Start: 06-02-2023 End: 06-02-2023 ambulatory Yeyo ROWE Facility:[facility] Start: 06-02-2023 End: 06-02-2023 Patient encounter procedure Yeyo ROWE [facility] Start: 05-16-2023 End: 05-16-2023 ambulatory Teresa Lynch Other [facility] Other Start: 05-16-2023 Telephone encounter Teresa [facility] Start: 05-03-2023 End: 05-03-2023 ambulatory Yeyo Viktoria SOLEDAD Facility: [facility] Start: 05-03-2023 End: 05-03-2023 Patient encounter procedure Yeyo R ROWE [facility] Start: 04-28-2023 End: 04-28-2023 ambulatory Teresa Lynch Other [facility] Other Start: 04-28-2023 Telephone encounter Teresa Lynch [facility] Start: 04-18-2023 End: 04-18-2023 ambulatory Yeyo Viktoria SOLEDAD Facility:[facility] Start: 04-18-2023 End: 04-18-2023 Patient encounter procedure Yeyo Blum ROWE [facility] Start: 04-17-2023 ambulatory Yeyo Viktoria SOLEDAD Facili ty:[facility] Start: 04-13-2023 End: 04-13-2023 ambulatory Yeyo Viktoria SOLEDAD Facility:CD:[id number] Start: 04-11-2023 End: 04-11-2023 ambulatory Teresa Lynch Other [facility] Other Start: 04-11-2023 Telephone encounter Teresa Lynch [facility] Start: 04-06-2023 End: 04-06-2023 ambulatory Teresa Lynch Other [facility] Other Start: 04-06-2023 Encounter for other preprocedural examination Teresa Lynch [facility] Start: 04-06-2023 Office outpatient vi sit 25 minutes Teresa Lynch [facility] Start: 03-28-2023 End: 03-28-2023 ambulatory Teresa Lynch Other [facility] [employer] Other Start: 03-28-2023 Telephone encounter Teresa Lynch [facility] Start: 03-20-2023 ambulatory Yeyo ROWE Facili ty:[facility] Start: 03-15-2023 End: 03-15-2023 ambulatory Yeyo ROWE [facility] [employer] Other Start: 03-15-2023 Office outpatient vi sit 25 minutes Teresa Lynch [facility] Start: 03-10-2023 End: 03-10-2023 ambulatory Teresa Lynch Other [facility] [employer] Other Start: 03-10-2023 Telephone encounter Teresa Lynch [facility] Start: 02-15-2023 Office outpatient vi sit 15 minutes Teresa Lynch Work Phone: [facility] 250 DO Work Phone: Start: 02-15-2023 ambulatory Dolores Matteo Facility:[id number] Start: 02-14-2023 End: 02-14-2023 Patient encounter procedure Yeyo ROWE [facility] Start: 02-08-2023 End: 02-08-2023 Patient encounter procedure Yeyo ROWE [facility] Start: 01-30-2023 End: 01-30-2023 Patient encounter procedure Yeyo ROWE [facility] Start: 01-25-[address] Teresa Lynch Facility:[id number] Start: 01-17-2023 End: 01-17-2023 ambulatory Teresa Lynch Other [facility] Other Start: 01-17-2023 Telephone encounter Teresa Lynch [facility] Start: 01-11-2023 Office outpatient vi sit 25 minutes Teresa Lynch Work Phone: [facility] 600 DO Work Phone: Start: 01-11-2023 ambulatory Dolores Pickard Facility:[id number] Start: 12-28-2022 End: 12-28-2022 Patient encounter procedure Yeoy ROWE [facility] Start: 12-01-2022 End: 12-01-2022 ambulatory Teresa Lynch Other [facility] Other Start: 12-01-2022 Office outpatient vi sit 25 minutes Teresa Lynch [facility] Start: 11-23-2022 End: 11-23-2022 Patient encounter procedure Yeyo ROWE [facility] Start: 10-07-2022 End: 10-07-2022 ambulatory Teresa Lynch Other [facility] Other Start: 10-07-2022 Telephone encounter Teresa Lynch [facility] Start: 09-27-2022 End: 09-27-2022 ambulatory DO Teresa Lynch Work Phone: [facility] Work Phone: Start: 09-27-2022 End: 09-27-2022 Patient encounter procedure DO Teresa Lynch Work Phone: [facility] [place] Work Phone: Start: 09-21-2022 End: 09-21-2022 ambulatory Teresa Lynch Other [facility] Other Start: 09-21-2022 Telephone encounter Teresa Lynch [facility] [place] Start: 09-14-2022 End: 09-14-2022 ambulatory Teresa Lynch Other [facility] Other Start: 09-14-2022 Telephone encounter Teresa Lynch [facility] [place] Start: 09-02-2022 End: 09-02-2022 Patient encounter procedure DO Teresa Lynch Work Phone: [facility] [place] Work Phone: Start: 08-25-2022 End: 08-25-2022 ambulatory Doris Barnes Other [facility] Other Start: 08-25-2022 Telephone encounter Doris Barnes [facility] Start: 08-22-2022 End: 08-22-2022 ambulatory Teresa Lynch Other [facility] Other Start: 08-22-2022 Telephone encounter Teresa Lynch [facility] [place] Start: 08-05-2022 End: 08-05-2022 ambulatory Teresa Lynch Other [facility] Other Start: 08-05-2022 Telephone encounter Teresa Lynch [facility] [place] Start: 08-04-2022 End: 08-04-2022 ambulatory Teresa Lynch Other [facility] Other Start: 08-04-2022 Telephone encounter Teresa Lynch [facility] [place] Start: 07-28-2022 End: 07-28-2022 ambulatory Teresa Lynch Other [facility] Other Start: 07-28-2022 Telephone encounter Teresa Lynch [facility] Start: 07-25-2022 End: 07-25-2022 ambulatory Teresa Lynch Other [facility] Other Start: 07-25-2022 Nursing evaluation o f patient and report Teresa yLnch [facility] [place] Start: 07-19-2022 End: 07-19-2022 ambulatory Teresa Lynch Other [facility] Other Start: 07-19-2022 Telephone encounter Teresa Lynch [facility] [place] Start: 07-15-2022 End: 07-15-2022 ambulatory Teresa Lynch Other [facility] Other Start: 07-15-2022 Telephone encounter Teresa Lynch [facility] [place] Start: 07-13-2022 End: 07-13-2022 ambulatory Teresa Lynch Other [facility] Other Start: 07-13-2022 Nursing evaluation o f patient and report Teresa Lynch [facility] [place] Start: 07-12-[address] Raulito gutierrez [facility] Facility: Start: 07-05-2022 End: 07-05-2022 ambulatory Teresa Lynch Other [facility] Other Start: 07-05-2022 Telephone encounter Teresa Lynch [facility] [place] Start: 07-05-2022 Rx Renewal Teresa Lynch Work Phone: [facility] 250 DO Work Phone: Start: 07-04-2022 End: 07-04-2022 ambulatory Teresa Lynch Other [facility] Other Start: 07-04-2022 Office outpatient vi sit 25 minutes Teresa Lynch [facility] Start: 06-30-2022 End: 06-30-2022 ambulatory Teresa Lynch Other [facility] Other Start: 06-30-2022 Telephone encounter Teresa Lynch [facility] [place] Start: 05-25-2022 End: 05-25-2022 ambulatory Teresa Lynch Other [facility] Other Start: 05-25-2022 Telephone encounter Teresa Lynch [facility] [place] Start: 04-25-2022 End: 04-25-2022 ambulatory Teresa Lynch Other [facility] Other Start: 04-25-2022 Telephone encounter Teresa Lynch [facility] [place] Start: 04-19-2022 End: 04-19-2022 ambulatory Teresa Lynch Other [facility] Other Start: 04-19-2022 Telephone encounter Teresa Lynch [facility] [place] Start: 03-22-2022 End: 03-22-2022 ambulatory Teresa Lynch Other [facility] Other Start: 03-22-2022 Telephone encounter Teresa Lynch [facility] [place] Start: 03-01-2022 End: 03-01-2022 ambulatory Teresa Lynch Other [facility] Other Start: 03-01-2022 Telephone encounter Teresa Lynch [facility] [place] Start: 02-18-2022 End: 02-18-2022 ambulatory Teresa Lynch Other [facility] Other Start: 02-18-2022 Telephone encounter Teresa Lynch [facility] [place] Start: 02-15-2022 End: 02-15-2022 ambulatory Verona Whaley Other [facility] Other Start: 02-15-2022 Office outpatient vi sit 25 minutes Teresa Lynch [facility] [place] Start: 02-15-2022 Telephone encounter Verona Salgado [facility] Start: 01-21-2022 End: 01-21-2022 ambulatory Teresa Lynch Other [facility] Other Start: 01-21-2022 Telephone encounter Teresa Lynch [facility] [place] Start: 01-19-2022 End: 01-19-2022 ambulatory Teresa Lynch Other [facility] Other Start: 01-19-2022 Telephone encounter Teresa Lynch [facility] [place] Start: 01-13-2022 End: 01-13-2022 ambulatory Teresa Lynch Other [facility] Other Start: 01-13-2022 Telephone encounter Teresa Lynch [facility] [place] Start: 12-23-2021 End: 12-23-2021 ambulatory Teresa Lynch Other [facility] Other Start: 12-23-2021 Telephone encounter Teresa Lynch [facility] [place] Start: 11-24-2021 End: 11-24-2021 ambulatory Teresa Lynch Other [facility] Other Start: 11-24-2021 Telephone encounter Teresa Lynch [facility] [place] Start: 11-03-2021 Rx Renewal Teresa Lynch Work Phone: [facility] [place]. [facility] [place] 250 DO Work Phone: Start: 10-26-2021 Office outpatient vi sit 25 minutes Teresa Lynch Work Phone: [facility] 250 DO Work Phone: Start: 10-25-2021 End: 10-25-2021 ambulatory Teresa Lynch Other [facility] Other Start: 10-25-2021 Telephone encounter Teresa Lynch [facility] Start: 10-19-2021 End: 10-19-2021 ambulatory Azjuan Kinseys Other [facility] Other Start: 10-19-2021 Office outpatient vi sit 25 minutes Aziz Bakhous [facility] Start: 10-18-2021 End: 10-18-2021 ambulatory Aziz Bakhous Other [facility] Other Start: 10-18-2021 Telephone encounter Azjuan Tonyhous [facility] Start: 10-12-2021 End: 10-13-2021 ambulatory DUARTE HENRY . Facility: Start: 10-08-2021 End: 10-08-2021 ambulatory Teresa Lynch Other [facility] Other Start: 10-08-2021 Telephone encounter Teresa Lynch [facility] Start: 09-22-2021 End: 09-22-2021 ambulatory Teresa Lynch Other [facility] Other Start: 09-22-2021 Telephone encounter Teresa Lynch [facility] Start: 09-21-2021 End: 09-21-2021 ambulatory Teresa Lynch Other [facility] Other Start: 09-21-2021 Telephone encounter Teresa Lynch [facility] Start: 08-09-2021 End: 08-09-2021 ambulatory Teresa Lynch Other [facility] Other Start: 08-09-2021 Telephone encounter Teresa Fraustos [facility] [place] Start: 08-02-2021 End: 02-28-2022 ambulatory Teresa Lynch Other [facility] Other Start: 08-02-2021 Telephone encounter Teresa Lynch [facility] Start: 07-27-2021 End: 07-27-2021 ambulatory Teresa Lynch Other [facility] Other Start: 07-27-2021 Office outpatient vi sit 25 minutes Teresa Lynch [facility] Start: 06-23-2021 End: 06-23-2021 ambulatory Teresa Lynch Other [facility] Other Start: 06-23-2021 Telephone encounter Teresa Lynch [facility] Start: 06-22-2021 Rx Renewal Teresa Lynch Work Phone: [facility] 250 DO Work Phone: Start: 05-03-2021 End: 05-03-2021 ambulatory Teresa Lynch Other [facility] Other Start: 05-03-2021 Telephone encounter Teresa Lynch [facility] Procedures Date Procedure Procedure Detail Performing Clinician Start: 02-05-2025 Cv strs tst xers&/or rx cont ecg trcg only Pascale Arnold MD Work Phone: Start: 10-10-2024 Plain chest X-ray Teresa Lynch DO Work Phone: Start: 08-11-2024 CT angiography of head Teresa Lynch DO Work Phone: Start: 08-11-2024 CT angiography of neck vessels Teresa diaz DO Work Phone: Start: 08-11-2024 CT [...] Start: 03-08-2024 MRI of head MD Kait aDn Work Phone: Start: 03-08-2024 Plain chest X-ray [...] use now? 1 Result Comment: PERF ORMED BY:[facility] [place], [place] [id number] MEDICAL DIRECTORCLIFFORD LOBATO M.D. Start: 03-04-2024 X-ray of right knee MD Kait Dan Work Phone: Start: 03-04-2024 Doppler ultrasonography of bilateral carotid arteries MD Kait Dan Work Phone: Start: 03-03-2024 CT of head without contrast MD Kait goemz Work Phone: Start: 03-03-2024 Computed tomography of [...] Status post partial amputation of right foot ([facility]) Guero Tam DO Work Phone: [...] Work Phone: Start: 06-05-2006 Total colonoscopy Teresa Mari Rory Work Phone: Angiography Mike Montes Comment [...] Angel Lynch Work Phone: cardiac stents Yeyo LANIE Camille Cataract extraction and insertion of intraocular lens Yeyo ROWE Cataract surgery Teresa diaz Work Phone: Colonoscopy Yeyo ROWE Decompression of median nerve Teresa Lynch Work Phone: History of amputation of foot 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 ([facility]) Guero Chacon [employer] Work Phone: History of amputation of foot 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 ([facility]) Guero Chacon [employer] Work Phone: History of amputation of foot 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 ([facility]) Guero Chacon [employer] DO Work Phone: History of amputation of foot 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 ([facility]) Guero Chacon [employer] DO Work Phone: History of amputation of foot 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 ([facility]) Guero Chacon [employer] Work Phone: History of amputation of foot 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 ([facility]) Guero Chacon [employer] Work Phone: History of amputation of foot 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 ([facility]) Guero Tam DO Work Phone: History of percutane ous transluminal coronary angioplasty History of PTCA Teresa Mari Lynch Work Phone: History of percutane ous transluminal coronary angioplasty History of PTCA Raulito Inman MD Work Phone: Procedure on back Teresa ramirez Work Phone: Comment on above: nerve ablation; Procedure on back Yeyo DOSHI Scrotum and testicle operation Teresa Mari Lynch Work Phone: Plan of Treatment Date Care Activity Detail Author Start: 08-05-2033 DTaP/Tdap/Td Vaccines (2 - Td or Tdap) DTaP/Tdap/Td Vaccines (2 - Td or Tdap) [facility] Start: 02-27-2026 Adult BMI Screening Adult BMI Screening [facility] Start: 10-10-2025 Echocardiography Echocardiogram [facility] Start: 04-26-2025 Tobacco Counseling Tobacco Counseling [facility] Start: 04-03-2025 End: 04-03-2025 Patient encounter procedure 04/03/2025 11:00 AM EDT Office Visit [facility] [address] [place] [address] Mike Montes MD [address], [address] [address] [facility] [place] Start: 03-15-2025 Adult BMI Screening Adult BMI Screening [facility] Start: 03-12-2025 End: 03-12-2025 Patient encounter procedure 03/12/2025 3:50 PM EDT Office Visit [place] [id number] [facility] [address] [place] [address] Bernard De La Cruz MD [address] [facility] [address], [address] [place] [address] [facility] Start: 02-28-2025 Adult BMI Screening Adult BMI Screening [facility] Start: 02-28-2025 Tobacco Screening Tobacco Screening [facility] Start: 02-27-2025 Adult BMI Screening Adult BMI Screening [facility] Start: 02-27-2025 End: 02-27-2026 CTA Abdominal Aorta and Bilateral Runoff Vessels W contrast IV CT angiogram abdominal aorta with runoff Imaging Routine 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) Expected: 02/27/2025, Expires: 02[facility]27/[facility]26 [facility] Comment on above: Expected: 02/27/2025, Expires: Start: 02-27-2025 End: 02-27-2026 US.doppler Extremity arteries - bilateral for physiologic artery study Vas art doppler lwr bilat mult lev/PVR Vascular Ultrasound Routine 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) Expected: 02/27/2025, Expires: 02/27/2026 [employer] Work Phone: Comment on above: Expected: 02/27/2025, Expires: Start: 02-03-2025 COVID-19 Vaccine ( season) COVID-19 Vaccine ( season) [facility] Start: 02-03-2025 Influenza vaccination [facility] Start: 01-17-2025 Adult BMI Screening Adult BMI Screening [facility] Start: 01-17-2025 Tobacco Screening Tobacco Screening [facility] Start: 12-20-2024 Adult BMI Screening Adult BMI Screening [facility] Start: 12-20-2024 Tobacco Screening Tobacco Screening [facility] Start: 11-29-2024 Adult BMI Screening Adult BMI Screening [facility] Start: 11-29-2024 Tobacco Screening Tobacco Screening [facility] Start: 11-13-2024 Adult BMI Screening Adult BMI Screening [facility] Start: 11-09-2024 Adult BMI Screening Adult BMI Screening [facility] Start: 11-09-2024 Tobacco Screening Tobacco Screening [facility] Start: 11-07-2024 Tobacco Screening Tobacco Screening [facility] Start: 11-06-2024 Depression Screening Depression Screening [facility] Start: 11-05-2024 Patient referral [facility] Work Phone: Start: 10-24-2024 Adult BMI Screening Adult BMI Screening [facility] Start: 10-21-2024 End: 10-21-2024 Patient encounter procedure 10/21/2024 8:00 AM EDT Office Visit [facility] [address] [place] [id number] Dolores Pickard, SENIOR TECHNICAL ANALYST-MEDICAL APPOINTMENT CLERK [address] [place] [address] [facility] Start: 10-17-2024 Adult BMI Screening Adult BMI Screening [facility] Start: 10-17-2024 Tobacco Screening Tobacco Screening [facility] Start: 10-13-2024 [facility] Start: 10-12-2024 [facility] Start: 10-11-2024 End: 10-11-2024 [facility] Start: 10-10-2024 End: 10-10-2024 [facility] Start: 10-10-2024 Hospital admission [facility] Start: 10-10-2024 Referral to llama farmer [facility] Start: 08-30-2024 Patient referral [facility] Work Phone: Start: 08-13-2024 [facility] Start: 08-12-2024 [facility] Start: 08-11-2024 End: 08-11-2024 [facility] Start: 08-11-2024 Physical therapy procedure [facility] Start: 08-11-2024 Referral to occupational therapist [facility] Start: 08-11-2024 Hospital admission [facility] Start: 08-11-2024 Referral to rate analyst [facility] Start: 08-11-2024 CT angiography of head [facility] Start: 08-11-2024 CT angiography of neck vessels [facility] Start: 08-11-2024 CT Head WO contrast [facility] Start: 08-11-2024 CT of head without contrast CT head stroke alert wo con [facility] Start: 08-11-2024 Plain chest X-ray XR chest 1V portable [facility] Start: 08-11-2024 XR Chest Single view [facility] Start: 08-11-2024 End: 08-11-2024 [facility] Start: 04-23-2024 [facility] Start: 03-13-2024 [facility] Start: 03-11-2024 End: 03-11-2024 Patient encounter procedure 03/11/2024 8:40 AM EDT Office Visit [facility] [address] [facility] [address] [place] [address] Bernard De La Cruz MD [address] [place] [address] [facility] Start: 03-10-2024 Referral to core oven tender [facility] Start: 03-09-2024 Comprehensive metabolic 2000 panel - Serum or Plasma [facility] Start: 03-09-2024 End: 03-09-2024 [facility] Start: 03-08-2024 Referral to psychiatrist [facility] Start: 03-08-2024 Referral to neurologist [facility] Start: 03-08-2024 End: 03-08-2024 [facility] Start: 03-08-2024 Hospital admission [facility] Start: 03-08-2024 Plain chest X-ray [facility] Start: 03-08-2024 Telemedicine consultation with patient [facility] Start: 03-08-2024 Blood culture for bacteria, including anaerobic screen [facility] Start: 03-06-2024 [facility] Start: 03-05-2024 Referral to core oven tender [facility] Start: 03-04-2024 Referral to core oven tender [facility] Start: 03-03-2024 Referral to neurologist [facility] Start: 03-03-2024 [facility] Start: 03-03-2024 Hospital admission [facility] Start: 02-29-2024 End: 02-29-2024 Patient encounter procedure 02/29/2024 9:30 AM EDT [facility] [address] [place] [phone] Mike Montes MD [address], [address] [place] [address] [facility] Start: 02-04-2024 COVID-19 Vaccine ( season) COVID-19 Vaccine () [facility] Start: 02-04-2024 COVID-19 Vaccine () COVID-19 Vaccine () [facility] Start: 02-04-2024 Influenza vaccination [facility] Start: 12-21-2023 End: 12-21-2023 Patient encounter procedure 12/21/2023 8:40 AM EDT Office Visit [facility] [address] [place], [place] [id number] Mike Montes MD [address], [address] [place] [address] [facility] Start: 11-30-2023 End: 11-30-2023 Patient encounter procedure 11/30/2023 8:50 AM EDT Office Visit [facility] [address] [place] [address] Mike Montes MD [address] [place] [address] [facility] Start: 11-23-2023 End: 11-23-2023 Patient encounter procedure [facility] Start: 11-23-2023 End: 11-23-2023 Patient encounter procedure 11/23/2023 9:40 AM EDT Office Visit [facility] [address] [place] [address] Mike Montes MD [address], [facility] [address] [place] [address] [facility] Start: 11-15-2023 FUV, Provider: Raulito Inman, Status: Pen, Time: 2:40 PM FUV, Provider: Raulito Inman, Status: Pen, Time: 2:40 PM [facility] 250 DO Work Phone: Start: 11-07-2023 End: 11-07-2023 Admission to same day surgery center 11/07/2023 3:00 PM EDT - 11/07/2023 4:00 PM EDT Surgery [facility] Cardiac Cath [address] [place] [id number] Mike Montes MD [address], [address] [address] Vascular Invasive Right lower extremity angiogram with intervention [facility] Comment on above: Vascular Invasive Right lower extremity angiogram with intervention Start: 11-07-2023 Subsequent hospital visit by physician 11/07/2023 3:00 PM EDT Hospital Encounter [facility] [address] [place] [address] Mike Montes MD [address], [address] [address] 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 ([facility]) [facility] Comment on above: Critical limb ischemia of right lower ex tremity with gangrene ([facility]) Start: 10-18-2023 End: 10-17-2024 CTA Abdominal Aorta and Bilateral Runoff Vessels W contrast IV [facility] Comment on above: Expected: 10/18/2023, Expires: 5 Start: 10-18-2023 End: 10-17-2024 US.doppler Extremity arteries - bilateral for physiologic artery study [facility] Work Phone: Comment on above: Expected: 10/18/2023, Expires: 5 Start: 10-02-2023 Acid Fast Culture Acid Fast Culture [facility] Start: 09-30-2023 Blood Culture 1 Blood Culture 1 [facility] Start: 09-30-2023 Blood Culture 2 Blood Culture 2 [facility] Start: 09-30-2023 Wound Culture Wound Culture [facility] Start: 09-21-2023 Abscess Culture Abscess Culture [facility] Start: 08-10-2023 Acid Fast Culture Acid Fast Culture [facility] Start: 08-05-2023 Wound Culture Wound Culture [facility] Start: 07-12-2023 Duplex scan of lower limb veins US venous duplex LE BI [facility] Start: 07-12-2023 US Lower extremity vein - bilateral [facility] Start: 07-12-2023 Duplex scan veins of upper limb US venous duplex UE LT [facility] Start: 07-12-2023 US Upper extremity vein - left [facility] Start: 02-15-2023 FUV, Provider: Dolores Velazquez, Status: Pen, Time: 10:00 AM FUV, Provider: Dolores Velazquez, Status: Pen, Time: 10:00 AM [facility] Work [facility]: Start: 02-03-2023 COVID-19 Vaccine ( season) COVID-19 Vaccine ( season) [facility] Start: 01-25-2023 STRESS NUC, Provider: CHALINO HHVI NUCLEAR ,[id number], Status: Pen, Time: 8:30 AM STRESS NUC, Provider: CHALINO PEMBERTONI NUCLEAR 01,[id number], Status: Pen, Time: 8:30 AM [facility] Work Phone: Start: 07-12-2022 FUV, Provider: Raulito Inman, Status: Pen, Time: 9:20 AM FUV, Provider: Raulito Inman, Status: Pen, Time: 9:20 AM [email or web address] Work Phone: Start: 10-26-2021 FUV, Provider: Raulito Inman, Status: Pen, Time: 9:30 AM FUV, Provider: Raulito Inman, Status: Pen, Time: 9:30 AM [facility] Work Phone: Start: 03-05-2019 Pneumococcal vaccination Pneumococcal Vaccine (2 of 2 - PCV) [facility] Start: 03-05-2019 Pneumococcal Vaccine: Pediatrics (0 to 5 Years) and At-Risk Patients (6 to 64 Years) (2 of 2 - PCV) Pneumococcal Vaccine: Pediatrics (0 to 5 Years) and At-Risk Patients (6 to 64 Years) (2 of 2 - PCV) [facility] Start: 2015 Administration of varicella zoster vaccine Zoster (Shingles) Vaccine (1 of 2) [facility] Start: 2015 Prostate specific antigen measurement PSA Prostate Cancer Screening [facility] Start: 2015 Zoster Vaccines (1 of 2) Zoster Vaccines (1 of 2) [facility] Start: 1987 DTaP/Tdap/Td Vaccines (1 - Tdap) DTaP/Tdap/Td Vaccines (1 - Tdap) [facility] Start: 1984 DTaP,Tdap and Td Vaccines (1 - Tdap) DTaP,Tdap and Td Vaccines (1 - Tdap) [facility] Start: 1984 Hepatitis B Vaccines (1 of 3 - 19+ 3-dose series) Hepatitis B Vaccines (1 of 3 - 19+ 3-dose series) [facility] Start: 1984 Urine screening for protein Diabetes: Urine Protein Screening [facility] Start: 1983 Adult BMI Follow Up Plan Adult BMI Follow Up Plan [facility] Start: 1983 Adult BMI Screening Adult BMI Screening [facility] Start: 1983 Diabetic foot examination Diabetic Foot Exam [facility] Start: 1983 Hepatitis C screening Hepatitis C Screening [facility] Start: 1977 Depression Screening Depression Screening [facility] Start: 1977 Tobacco Screening Tobacco Screening [facility] Start: 1975 Diabetic foot examination Diabetes: Foot Exam [facility] Start: 1975 Glaucoma screening Diabetes: Retinopathy Screening [facility] Start: 1966 MMR Vaccines (1 of 1 - Standard series) MMR Vaccines (1 of 1 - Standard series) [facility] Start: 1965 Creatinine measurement Creatinine Level [facility] Start: 1965 Echocardiography Echocardiogram [facility] Start: 1965 Glaucoma screening Diabetic Ophthalmology Exam [facility] Start: 1965 Hemoglobin A1c measurement Diabetes: Hemoglobin A1C [facility] Start: 1965 HIV screening HIV Screening [facility] Start: 1965 Lipid panel Lipid Panel [facility] Start: 1965 Potassium measurement Potassium Level [facility] Start: 1965 Screening for malignant neoplasm of colon [facility] Start: 1965 Statin Use: Cardiovascular Statin Use: Cardiovascular [facility] Start: 1965 Statin Use: Diabetic Statin Use: Diabetic [facility] Start: 1965 Tobacco Counseling Tobacco Counseling [facility] Start: 1965 Urine screening for protein Diabetes: Urine Protein Screening [facility] Start: 1965 Yearly Adult Physical Yearly Adult Physical [facility] Bacteria identified in Blood by Culture [facility] Comprehensive metabo lic 1999 panel - Serum or Plasma [facility] Comprehensive metabo lic 1999 panel - Serum or Plasma [facility] End: 10-17-2024 Creatinine includes GFR, serum Creatinine includes GFR, serum Lab Routine 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) 1 Occurrences starting 10/18/2023 until 10/17/2024 [facility] Comment on above: 1 Occurrences starting 10/18/2023 until 10/17/2024 End: 02-27-2026 Creatinine includes GFR, serum Creatinine includes GFR, serum Lab Routine 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) 1 Occurrences starting 02/27/2025 until 02/27/2026 [facility] Comment on above: 1 Occurrences starting 02/27/2025 until 02/27/2026 Microalbumin [Mass/v olume] in Urine [facility] Patient Education [facility] Work Phone: Patient referral [facility] Work Phone: Renal function 1999 panel - Serum or Plasma [facility] Renal function 1999 panel - Serum or Plasma [facility] End: 01-17-2024 [facility] Work Phone: Comment on above: Once for 1 Occurrences starting 01/17/20 24 until 01/17/2024 [facility] Immunizations Immunization Date Immunization Notes Care Provider Fa [facility] 11-13-2020 Pfizer-BioNTech COVID-19 Vacc 30 MCG/0.3ML Intramuscular Suspension Teresa Lynch Work Phone: [facility] 10-23-2020 Pfizer-BioNTech COVID-19 Vacc 30 MCG/0.3ML Intramuscular Suspension Teresa Lynch Work Phone: [facility] 01-14-2019 influenza, seasonal, injectable Teresa Lynch Other [facility] 01-14-2019 influenza virus vaccine, unspecified formulation Yeyo ROWE [facility] 04-02-2018 influenza virus vaccine, unspecified formulation Yeyo ROWE [facility] 04-02-2018 influenza, injectabl e, quadrivalent, preservative free DO Teresa Lynch Work Phone: [facility] 03-05-2018 influenza virus vaccine, unspecified formulation Teresa Lynch Work Phone: [facility] 250 DO Work Phone: 03-05-2018 pneumococcal polysaccharide vaccine, 23 valent Teresa Lynch Work Phone: [facility] 250 DO Work Phone: 03-07-2016 influenza virus vaccine, unspecified formulation Yeyo ROWE [facility] 03-07-2016 influenza, injectabl e, quadrivalent, preservative free Teresa Lynch Work Phone: [facility] 02-22-2016 pneumococcal polysaccharide vaccine, 23 valent Teresa Lynch Work Phone: [facility] NEGATED: Highlighted row has not occurred!08-02-2024 influenza virus vaccine, unspecified formulation MARYBEL VANG [facility] Payers Date Payer Category Payer Medicaid (Managed Care) [facility] [id number] 2023 Self-pay [id number] 2023 Medicaid [id number] 2023 Private Health Insurance [id number] 2022 Private Health Insurance [id number]. [id number] 2022 Private Health Insurance [id number] 2022 Medicaid [id number] 2022 Unknown 1965 Unknown [id number] 2.16.840.1.761124.3.579.2. 593 1965 Unknown [id number] 2.16.840.1.517362.3.579.2. 1068 1965 Unknown [id number] 2.16.840.1.325012.3.579.2. 356 1965 Unknown [id number] 2.16.840.1.277922.3.579.2. 356 1965 Unknown [id number] 2.16.840.1.169945.3.579.2. 356 1965 Unknown [id number] 2.16.840.1.872243.3.579.2. 1286 1965 Unknown [id number] 2.16.840.1.161561.3.579.2. 128 1965 Unknown [id number] 2.16.840.1.150496.3.579.2. 1286 1965 Unknown [id number] 2.16.840.1.516059.3.579.2. 128 1965 Unknown [id number] 2.16.840.1.548037.3.579.2. 1286 1965 Unknown [id number] 2.16.840.1.317785.3.579.2. 128 1965 Unknown [id number] 2.16.840.1.638760.3.579.2. 1286 1965 Unknown [id number] 2.16.840.1.738172.3.579.2. 1286 1965 Unknown [id number] 2.16.840.1.200614.3.579.2 1965 Unknown [id number] 2.16.840.1.055362.3.579.2 1965 Unknown [id number] 2.16.840.1.678398.3.579.2 1965 Unknown [id number] 2.16.840.1.153067.3.579.2 1965 Unknown [id number] 2.16.840.1.427710.3.579.2 1965 Unknown [id number] 2.16.840.1.952494.3.579. 1965 Unknown [id number] 2.16.840.1.249491.3.579. 1965 Unknown [id number] 2.16.840.1.972765.3.579. 1965 Unknown [id number] 2.16.840.1.447759.3.579. 1965 Unknown [id number] 2.16.840.1.567567.3.579. 1965 Unknown [id number] 2.16.840.1.687948.3.579.2 1965 Unknown [id number] 2.16.840.1.452317.3.579.2 1965 Unknown [id number] 2.16.840.1.148284.3.579.2 1965 Unknown [id number] 2.16.840.1.546688.3.579.2 1965 Unknown [id number] 2.16.840.1.109714.3.579.2 1965 Unknown [id number] 2.16.840.1.758977.3.579.2 1965 Unknown [id number] 2.16.840.1.653463.3.579.2. 1965 Unknown [id number] 2.16.840.1.406357.3.579.2 1965 Unknown [id number] 2.16.840.1.402237.3.579.2 1965 Unknown [id number] 2.16.840.1.297044.3.579.2 1965 Unknown [id number] 2.16.840.1.439991.3.579.2 1965 Unknown [id number] 2.16.840.1.903649.3.579.2 1965 Unknown [id number] 2.16.840.1.627328.3.579. 1965 Unknown [id number] 2.16.840.1.382511.3.579.2 1965 Unknown [id number] 2.16.840.1.216926.3.579.2 1965 Unknown [id number] 2.16.840.1.071744.3.579.2 1965 Unknown [id number] 2.16.840.1.704252.3.579.2 1965 Unknown [id number] 2.16.840.1.572084.3.579.2 1965 Unknown [id number] 2.16.840.1.510163.3.579.2 1965 Unknown [id number] 2.16.840.1.324541.3.579.2 1965 Unknown [id number] 2.16.840.1.309555.3.579.2. 1243 1965 Unknown [id number] 2.16.840.1.848014.3.579.2. 1245 1965 Unknown [id number] 2.16.840.1.231666.3.579.2. 6 1965 Unknown [id number] 2.16.840.1.723422.3.579.2. 1245 1965 Unknown [id number] 2.16.840.1.733689.3.579.2. 1245 1965 Unknown [id number] 2.16.840.1.851671.3.579.2. 1245 1965 Unknown [id number] 2.16.840.1.171217.3.579.2. 1285 1965 Unknown [id number] 2.16.840.1.756444.3.579.2. 1285 1965 Unknown [id number] 2.16.840.1.968582.3.579.2. 1285 1965 Unknown [id number] 2.16.840.1.687694.3.579.2. 1285 1965 Unknown [id number] 2.16.840.1.572654.3.579.2. 1285 1965 Unknown [id number] 2.16.840.1.515051.3.579.2. 1965 Unknown [id number] 2.16.840.1.230988.3.579.2. 1965 Unknown [id number] 2.16.840.1.856665.3.579.2. 7 1965 Unknown [id number] 2.16.840.1.736190.3.579.2. 727 1959 Unknown [id number] 2.16.840.1.771715.19 Unknown [id number] 2.16.840.1.168442.3.579.2. 531 Unknown [id number] 2.16.840.1.785687.3.579.2. 531 Unknown [id number] 2.16.840.1.587913.3.579.2. 531 Unknown [id number] 2.16.840.1.964333.3.579.2. 531 Unknown [id number] 2.16.840.1.635690.3.579.2. 531 Unknown [id number] 2.16.840.1.251205.3.579.2. 531 Unknown [id number] 2.16.840.1.020878.3.579.2. 531 Unknown [id number] 2.16.840.1.764649.3.579.2. 531 Social History Date Type Detail Facility Start: 08-08-2023 End: 02-29-2024 Caffeine use Caffeine use [facility] Other Comment on above: 2 cups coffee, 4-6 c ups tea daily, occaional soda; qauit 07/2020; Start: 08-08-2023 End: 02-29-2024 Sex Assigned At [facility] Start: 07-14-2020 End: 10-10-2024 Tobacco smoking status NHIS Smoker (finding) [facility] Start: 1965 Sex Assigned At Male [facility] Start: 11-23-2022 End: 09-27-2024 Tobacco smoking status Heavy tobacco smoker (finding) [facility] Start: 04-30-2022 Tobacco smoking status Never [facility] Start: 10-24-2023 Tobacco smoking stat us NHIS Ex-smoker [facility] Start: 10-05-1981 End: 06-05-2020 History of tobacco use [facility]ig[facility] Start: 10-24-2023 End: 11-07-2023 Tobacco use and exposure Smokeless tobacco non-user [facility] Work Phone: Start: 10-24-2023 End: 01-01-2024 Alcoholic beverage intake Lifetime non-drinker (finding) [facility] Work Phone: Start: 1965 Sex assigned at Not on file P [employer] [facility] Start: 10-14-2023 End: 01-17-2024 Exposure to SARS-CoV-2 (event) Not sure [facility] Start: 03-10-2024 Tobacco smoking stat us NHIS Unknown if ever smoked [facility] Start: 01-06-2015 End: 04-23-2024 Sex Male (finding) [facility] Start: 10-05-1981 End: 11-07-2023 Tobacco smoking status NHIS Smokes tobacco daily [employer] [facility] [employer] Start: 11-10-2023 End: 02-29-2024 Alcoholic beverage intake Ex-drinker (finding) [employer] Has the [employer], or [employer] threatened to shut off services in your home in past 12Mo No [employer] How often to you hav e a drink containing alcohol? 2-4 times a month [employer] How many standard drinks containing alcohol do you have on a typical day? 1 or 2 [employer] How often do you hav e 6 or more drinks on 1 occasion? Never [employer] Start: 08-12-2024 SDOH Follow up SDOH Follow up [facility] Work Phone: Sexual Orientation [facility] Medical Equipment Procedure Code Equipment [...] extremity runoff FDA Start: 09-27-2018 Start: 12-16-2013 [id number] FDA Start: 07-14-2020 Insulin Syringe,Safety Needle 1 mL 30 gauge x 1/2 syringe Start: 03-29-2024 Pen Needle, Diabetic (Comfort Ez Pen Irvona) 32 gauge x 5/32 needle Start: 04-15-2024 Insulin Syringe,Safety Needle 1 mL 30 gauge x 1/2 syringe Start: 03-29-2024 Pen Needle, Diabetic (Comfort Ez Pen Irvona) 32 gauge x 5/32 needle Start: 04-15-2024 LLE Angiogram Unknown 01/08/24 Non Biological Left Femoral Artery/Vein FDA Start: 01-08-2024 LLE Angiogram Unknown 01/08/24 Non Biological Left Femoral Artery/Vein FDA Start: 01-08-2024 LLE Angiogram Unknown 01/08/24 Non Biological Left Femoral Artery/Vein FDA Start: 01-08-2024 Graft Vsc 50cm 6 mm [place] Thn[facility] Hep Propaten Ptfe Rem Rng - [id number] Start: 11-08-2023 Comment on above: Description: RIGHT F EMORAL ARTERY Stent Vsc Epic 10mm 100mm 120cm 6fr Rdpq Otw Slf Xpd - [id number] FDA Start: 11-07-2023 LLE Angiogram Unknown 01/08/24 Non Biological Left Femoral Artery/Vein FDA Start: 01-08-2024 Insulin Syringe,Safety Needle 1 mL 30 gauge x 1/2 syringe Start: 03-29-2024 Pen Needle, Diabetic (Comfort Ez Pen Irvona) 32 gauge x 5/32 needle Start: 04-15-2024 Insulin Syringe,Safety Needle 1 mL 30 gauge x 1/2 syringe Start: 03-29-2024 Pen Needle, Diabetic (Comfort Ez Pen Irvona) 32 gauge x 5/32 needle Start: 04-15-2024 Insulin Syringe,Safety Needle 1 mL 30 gauge x 1/2 syringe Start: 03-29-2024 Pen Needle, Diabetic (Comfort Ez Pen Irvona) 32 gauge x 5/32 needle Start: 04-15-2024 Insulin Syringe,Safety Needle 1 mL 30 gauge x 1/2 syringe Start: 03-29-2024 Pen Needle, Diabetic (Comfort Ez Pen Irvona) 32 gauge x 5/32 needle Start: 04-15-2024 Insulin Syringe,Safety Needle 1 mL 30 gauge x 1/2 syringe Start: 03-29-2024 Pen Needle, Diabetic (Comfort Ez Pen Irvona) 32 gauge x 5/32 needle Start: 04-15-2024 Insulin Syringe,Safety Needle 1 mL 30 gauge x 1/2 syringe Start: 03-29-2024 Pen Needle, Diabetic (Comfort Ez Pen Irvona) 32 gauge x 5/32 needle Start: 04-15-2024 Insulin Syringe,Safety Needle 1 mL 30 gauge x 1/2 syringe Start: 03-29-2024 Pen Needle, Diabetic (Comfort Ez Pen Irvona) 32 gauge x 5/32 needle Start: 04-15-2024 [...] Facility 10-11-2024 Functional status Patient at Baseline [facility] Work Phone: 10-10-2024 Functional status Patient at Baseline [facility] Work Phone: 08-13-2024 Functional status Patient at Baseline [facility] Work Phone: 08-02-2024 Functional Status N/A [facility] 05-27-2024 Functional Status N/A [facility] 03-13-2024 Functional status Patient at Baseline [facility] Work Phone: 03-06-2024 Functional status Patient at Baseline [facility] Work Phone: 02-12-2024 Functional Status No [facility] 10-23-2023 Functional Status No [facility] 06-02-2023 Functional Status N/A [facility] 02-14-2023 Functional Status N/A [facility] 01-30-2023 Functional Status N/A [facility] 11-23-2022 Functional Status N/A [facility] Mental Status Date Assessment Result Facility 10-11-2024 Cognitive function Patient at Baseline [facility] Work Phone: 05-08-2025 Cognitive function Cognitive Sta tus Patient at Baseline [facility] Work Phone: 08-13-2024 Cognitive function Patient at Baseline [facility] Work Phone: 03-13-2024 Cognitive function Patient at Baseline [facility] Work Phone: 03-06-2024 Cognitive function Patient at Baseline [facility] Work Phone: Clinical Notes 06-23-2021 to 02-28-2025 Assessment & Plan Note - Mike Montes MD - 02/28/2025 5:59 PM EDTAssessment & Plan Note - Mike Montes MD - 02/28/2025 5:59 PM EDTMcathy Montes MD - 02/27/2025 10:50 AM EDT Note Date & Type Note Facility 02-28-2025 Evaluation + Plan note Associated Problem(s): Cigarette smoker Counseled him on smoking cessation for at least 4 minutes [facility] 02-28-2025 Miscellaneous Notes Associated Problem(s): Cigarette smoker Counseled him on smoking cessation for at least 4 minutes Associated Problem(s): 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 [facility] 02-27-2025 History of Presen t illness Narrative Images from the original note were not included. To: No primary care provider on file. HPI: Myra Pickard is a 59 y.o. male with History of right BKA comes in with nonhealing wound in the left side. He does not have testing done. He continued to smoke. I counseled him on smoking cessation in length. I discussed with him getting CTA with runoff in getting PVR. He will get those done and I will see him to discuss revascularization plans if needed.. Review of Systems: Review of Systems Constitutional: [...] under the skin every 30 (thirty) days. albuterol (PROAIR HFA) 90 mcg/actuation inhaler Inhale 2 puffs every 4 (four) hours as needed. albuterol (PROVENTIL HFA;VENTOLIN HFA) 90 mcg/actuation inhaler Inhale 2 puffs in the morning and 2 puffs before bedtime. amitriptyline (ELAVIL) 25 mg tablet Take 1 tablet (25 mg total) by mouth nightly. aspirin 81 [...] 1 tablet (2 mg total) before bedtime. isosorbide mononitrate (IMDUR) 30 [...] 1 capsule (200 mg total) by mouth in the morning and 1 capsule (200 mg total) at noon and 1 capsule (200 mg total) before bedtime. rOPINIRole (REQUIP) 1 mg tablet Take 1 tablet (1 mg total) by mouth in the morning and 1 tablet (1 mg total) at noon and 1 tablet (1 mg total) before bedtime. SITagliptin phosphate (JANUVIA) 100 mg tablet Take 1 tablet (100 mg total) by mouth in the morning. tamsulosin (FLOMAX) 0.4 mg capsule Take 1 capsule (0.4 mg total) by mouth in the morning and at bedtime. tiotropium (SPIRIVA WITH HANDIHALER) 18 mcg per inhalation capsule Place 1 capsule (18 mcg total) into inhaler and inhale in the morning. tiZANidine (ZANAFLEX) 4 mg capsule Take 1 capsule (4 mg total) by mouth as needed in the morning and 1 capsule (4 mg total) as needed at noon and 1 capsule (4 mg total) as needed in the evening for muscle spasms. ubrogepant 100 mg tablet Take 100 mg by mouth daily as needed. No current facility-administered medications on file prior to visit. Past Medical History: Past Medical History: Diagnosis Date Chronic kidney disease Coronary artery disease 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 ([facility]) Diabetes mellitus type 2, controlled ([facility] GERD (gastroesophageal reflux disease) Hyperlipidemia Hypertension Past Surgical History: Past Surgical History: Procedure Laterality Date AMPUTATION FOOT / TOE Right 09/29/2023 APPENDECTOMY BYPASS ARTERY FEMORAL POPLITEAL Right 11/08/2023 Performed by Mike Montes MD at [facility] SPECIAL PROC CARDIAC CATHETERIZATION x4 heart stents COLONOSCOPY PROSTATE SURGERY SPINE SURGERY Vascular Invasive Right lower extremity angiogram with intervention/stent Right 11/07/2023 Performed by Mike Montes MD at [facility] CARDIAC CATH LABS Social and Family History: Social History Socioeconomic History Marital status: Spouse name: Not on file Number of children: Not on file Years of education: Not on file Highest education level: Not on file Occupational History Not on file Tobacco Use Smoking status: Every Day Current packs/day: 1.00 Average packs/day: 1 pack/day for 43.4 years (43.4 ttl pk-yrs) Types: Cigarettes Start date: 10/05/1981 Smokeless tobacco: Never Vaping Use Vaping status: Never Used Substance and Sexual Activity Alcohol use: Not Currently Drug use: Never Sexual activity: Defer Other Topics Concern Not on file Social History Narrative Not on file Social Drivers of Health Financial Resource Strain: Not on file Food Insecurity: No Food Insecurity (02/29/2024) Hunger Screening Food Insecurity - Worry: Never [...] the assessment and plan below. Vitals: BP 128/81 (BP Site: Left Arm, BP Postition: Sitting, BP CUFF SIZE: M (9-13 inches)) Pulse 75 Ht 182.9 cm (6') Wt 93.9 kg (207 lb) SpO2 99% BMI 28.07 kg/m Body mass index is [...] content normal. Judgment: Judgment normal. Recent testing: Recent labs and noninvasive tests have been reviewed. 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 Relevant Orders Vas art doppler lwr bilat mult lev/PVR CT angiogram abdominal aorta with runoff Creatinine includes GFR, serum Hx of right B[place] Cigarette smoker Current Assessment & Plan Counseled him on smoking cessation for at least 4 minutes Myra was seen today for testing bellvue 2 months ago rt leg. 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 While intending to generate a timely document that accurately reflects the content of the visit, no guarantee can be provided that every grammatical or spelling mistake has been or will be identified or corrected. Thank you for your understanding. documented in this encounter [facility] 02-27-2025 Instructions Mike Montes MD - 02/27/2025 10:50 AM EDT Are You Ready To Kick The Habit? Free Tobacco Cessation Resources [facility] Services [facility] Tobacco Treatment Centers provide all employees with free tobacco cessation services that include: Counseling to understand nicotine addiction Education about medications that can help you successfully quit Assistance with developing a plan to quit Call to set up an individual appointment or find out when group classes will be held: [facility]: [phone] [facility]: [phone] [facility]: [phone] : [phone] Quit Smoking Action Plan and Resources [facility] offers an eight-week, online smoking cessation plan to all [facility] employees, regardless of whether [place] is your medical insurance provider. Go to www.mypromedica.org/employeewell ness and click the Health Risk Assessment and Resources link to get started. In the Jjeel8Xqiohh menu, click Action Plans instead of Health Risk Assessment to access the Quit Smoking Action Plan. Additional smoking cessation resources are also available to all [facility] employees on the Pxafq9Wdmesp web page at www.BetterLesson.Inline.me/quit smoking. [place] Tobacco Cessation Program If [place] is your medical insurance provider, there are more free resources available to you, including: No copays or deductibles on local tobacco cessation counseling services to help you quit Prescription assistance for tobacco cessation medications to help you quit For details about the tobacco cessation program available to [place] members, go to www.Jentro Technologiescare.Inline.me (Search: Tobacco Cessation Program). [place] Tobacco Quit Line 3-204-UJGK-NOW ( ) is a toll-free, telephonic service that helps [place] residents quit smoking and using tobacco. It is staffed by experts who tailor a quit plan for you and provide you with advice. [place] Tobacco Quit Line 9-306-LTFD-NOW ( ) is a toll-free, telephonic service that helps [place] residents quit smoking and using tobacco. It is staffed by experts who tailor a quit plan for you and provide you with advice. Two weeks of nicotine replacement therapy may be provided at no charge, if needed. Additional Resources These national organizations also offer free information and resources to help you quit tobacco: [place] [employer]--www.cancer.org/healthy/ stayawayfromtobacco [place] [employer]--www.heart.org (Search: Quit Smoking) Centers for Disease Control and Prevention--www.cdc.gov/tobacco [place] [employer]--www.lungusa.org documented in this encounter [facility] Miscellaneous Notes LVM to see if patient can head over now for his appointment documented in this encounter [facility] 01-02-2025 Telephone encounter Note LVM to see if patient can head over now for his appointment [facility]-05-2024 Hospital Discharg e instructions Ambulatory OrdersReferral to Diabetes Management Time Frame: 11/05/24, Location: None Selected [facility] Work Phone: 10-10-2024 Consult note Note Date/Time October 11, 2024 9:56am [facility] [address] [place] [address] Cardiology Consult Note Signed Patient: Myra Pickard SR MR#: [id number] : 1965 Acct:[id number] Age/Sex: 59 / M Adm Date: 5 Loc: 4 Room: [address] [place] [address] Type: ADM INOo Attending Dr: Abdullahi Canchola DO Copies to: DO Pascale Guzman MD, [facility] Abdullahi Canchola, ~ Cardiology HPI History [...] post right below-knee amputation February 2024 in [place]. He has COPD followed by pulmonary medicine in [place]. His EKG showed no acute changes his [...] he gets seen first by his primary llama farmer in the office, I emphasized to the [...] symptoms. 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 by Dr. Simon Hernández Vascular History of [...] [History Confirmed 10/10/24] flash glucose scanning reader (iWeb TechnologiesStyle Jigar 2 [place]) #1 ea 12/28/23 [Rx Confirmed 10/10/24] flash [...] 32 gauge x 5/32 (Comfort EZ Pen Irvona) #100 ea 04/15/24 [Rx Confirmed 10/10/24] hydroxyzine [...] (Januvia) 100 mg PO DAILY #90 tabs 01/21/25 [Rx Confirmed 10/10/24] atorvastatin 80 mg tablet [...] Lymph # (Auto) 2.0 2.0 (1.00-4.8) x10E3/uL [place] # (Auto) 0.8 0.9 H (0.0-0.8) x10E3/uL [...] RCA, nuclear stress test February 2024 in [place] was normal Plan: Continue aggressive risk factors modifications, tobacco cessation, dual antiplatelet therapy, high intensity statin Code(s): I25.10 - Atherosclerotic heart disease of ely shoshone coronary artery without angina pectoris Documented By: Pascale Arnold MD, [facility] 5 0980 Signed By: <Electronically signed by [facility] Arnold> 10/11/24 0943 [facility] Work Phone: 1(245) 587-687904-25-2025 NotePatient Education Urology Acute Urinary Retention, Male [...] these instructions at home: Medicines ??? Take ayyn-qvb-psgauxj and prescription medicines only as told by [...] provider. Document Revised: 02/10/2021 Document Reviewed: 02/10/2021 [employer] Patient Education ? 2023 [employer] 08-30-2024 Hospital Discharge instructionsAmbulatory Orders* Referral to Pain Management Time Frame: 08/30/24, Location: [facility] Work Phone: [phone]) 656-346703-11-2025 [place] [address] Discharge Summary Signed Patient: Myra Pickard SR MR#: [id number] : 1965 Acct:[id number] Age/Sex: 59 / M Adm Date: 5 Loc: Room: [address] [place] [address]: Kevno Viera MD Copies to: DO Kevon Guzman [...] (DME) pen needle, diabetic [Comfort EZ Pen Irvona] 32 gauge x 5/32 needle See Rx [...] Instructions: As directed (DME) FreeStyle Jigar 2 [place] Misc See Rx Instructions .Route Qty: 1 [...] F 62 18 114/70 99 Room Air 03/11/25 08:21 08/13/24 11:51 08/13/24 11:51 08/13/24 11:38 [...] 08/13/24 14 35 Signed By: 08/13/24 1439 [facility]03-11-2025 Progress note Author Maurice Francis [facility] Note Date/Time August 13, 2024 11: 06am [facility] [address] [place] [address] Nephrology Progress Note Signed Patient: Myra Pickard SR MR#: [id number] : 1965 Acct:[id number] Age/Sex: 59 / M Adm Date: 5 Loc: Room: [address] [place] [address] Type: ADM IN Attending Dr: Kevon Viera [...] Skin: No rashes , warm to touch TOOL KEEPER: Awake,Alert, 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 Musculoskeletal: No swelling [...] 25 Mg Tablet) 25 mg PO HS [facility] Stop: 08/11/25 21:59 Last Admin: 08/12/24 21:48 Dose: 25 mg Aspirin (Aspirin 81 Mg Tablet.) 81 mg PO DAILY [facility] Stop: 08/11/25 08:59 Last Admin: 08/13/24 08:25 Dose: 81 mg Atorvastatin Calcium (Atorvastatin 80 Mg Tablet) 80 mg PO DAILY [facility] Stop: 08/11/25 08:59 Last Admin: 08/13/24 08:25 Dose: 80 mg Budesonide/Formoterol Fumarate (Budesonide/Formoterol 160-4.5 Mcg 60 Puff/6 Gm Hfa.Aer.Ad) 2 puff INHALATION BID [facility] Stop: 08/11/25 08:59 Last Admin: 08/13/24 07:54 Dose: 2 puff Calcium Carbonate (Calcium Carbonate/Vitamin D3 500 Mg/200 Unit Tablet) 2 tab PO TID.WITH.MEALS [facility] Stop: 08/11/25 07:59 Last Admin: 08/13/24 08:25 Dose: 2 tab Clopidogrel Bisulfate (Clopidogrel Bisulfate 75 Mg Tablet) 75 mg PO DAILY [facility] Stop: 08/11/25 08:59 Last Admin: 08/13/24 08:25 Dose: 75 mg Cyanocobalamin (Cyanocobalamin 1,000 Mcg/Ml Vial) 1,000 mcg IM DAILY [facility] Stop: 08/17/24 09:01 Last Admin: 08/13/24 [...] 5,000 Unit/Ml Vial) 5,000 unit SUBCUT Q12HR [facility] Stop: 08/11/25 08:59 Last Admin: 08/13/24 08:25 Dose: 5,000 unit Hydralazine HCl (Hydralazine 20 Mg/Ml Vial) 10 mg IV-PUSH Q4H PRN PRN Reason: if SBP > 185 Stop: 08/11/25 05:38 Ferric Sodium Gluconate Complex 250 mg/ Sodium Chloride 270 mls @ 135 mls/hr IVQAM [facility] Stop: 08/14/24 10:59 Last Admin: 08/12/24 09:19 Dose: 135 mls/hr Insulin Aspart (Insulin Aspart 300 Units/3 Ml) 0 units SUBCUT TID.WM.HS [facility]; Protocol Stop: 08/11/25 07:59 Last Admin: 08/13/24 08:25 Dose: 1 units Ipratropium Chilton (Ipratropium Chilton 0.5 Mg/2.5 Ml Vial.Neb) 0.5 mg INHALATION QID.RESP [facility] Stop: 08/11/25 07:59 Last Admin: 08/13/24 [...] weeks Documented By: Maurice Francis MD 08/13/24 0228 Signed By: <Electronically signed by Maurice Francis MD> 08/13/24 6748 [facility] Work Phone: [phone]) 275-817903-11-[address] [address] Nephrology Progress Note Signed Patient: Myra Pickard SR MR#: [id number] : 1965 Acct:[id number] Age/Sex: 59 / M Adm Date: 5 Loc: 3T Room: [address] [place] [address] Type: ADM IN Attending Dr: Kevon Viera [...] Skin: No rashes , warm to touch TOOL KEEPER: Awake,Alert, 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 Musculoskeletal: No swelling [...] 25 Mg Tablet) 25 mg PO HS [facility] Stop: 08/11/25 21:59 Last Admin: 08/12/24 [...] 1,000 Mcg/Ml Vial) 1,000 mcg IM DAILY [facility] Stop: 08/17/24 09:01 Last Admin: 08/13/24 [...] 5,000 Unit/Ml Vial) 5,000 unit SUBCUT Q12HR [facility] Stop: 08/11/25 08:59 Last Admin: 08/13/24 08:25 Dose: 5,000 unit Hydralazine HCl (Hydralazine 20 Mg/Ml Vial) 10 mg IV-PUSH Q4H PRN PRN Reason: if SBP > 185 Stop: 08/11/25 05:38 Ferric Sodium Gluconate Complex 250 mg/ Sodium Chloride 270 mls @ 135 mls/hr IVQAM [facility] Stop: 08/14/24 10:59 Last Admin: 08/12/24 09:19 Dose: 135 mls/hr Insulin Aspart (Insulin Aspart 300 Units/3 Ml) 0 units SUBCUT TID..[facility]; Protocol Stop: 08/11/25 07:59 Last Admin: 08/13/24 08:25 Dose: 1 units Ipratropium Chilton (Ipratropium Chilton 0.5 Mg/2.5 Ml Vial.Neb) 0.5 mg INHALATION QID.RESP [facility] Stop: 08/11/25 07:59 Last Admin: 08/13/24 07:54 Dose: 0.5 mg Isosorbide Mononitrate (Isosorbide Mononitrate 24hr Er 30 Mg Tab.Er.24h) 30 mg PO DAILY [facility] Stop: 08/11/25 08:59 Last Admin: 08/13/24 08:25 Dose: 30 mg Metoprolol Tartrate (Metoprolol Tartrate 100 Mg Tablet) 100 mg PO BID [facility] Stop: 08/11/25 08:59 Last Admin: 08/13/24 [...] 0.4 Mg Cap.Er.24h) 0.4 mg PO BID [facility] Stop: 08/11/25 08:59 Last Admin: 08/13/24 [...] MD 08/13/24 0855 Signed By: 08/13/24 1106 [facility]03-10-2025 Progress note Author Kevon Viera [facility] Note Date/Time August 12, 2024 3:1 6pm [facility] [address] [place] [address] Hospitalist Progress Note Signed Patient: Myra Pickard SR MR#: [id number] : 1965 Acct:[id number] Age/Sex: 59 / M Adm Date: 5 Loc: 3T Room: [address] [place] [address] Type: ADM IN Attending Dr: Kevon Viera [...] 1 units TID.WM.HS [facility] Administration Protocol Ipratropium Chilton 0.5 mg 08/11/24 08:00 08/12/24 12:31 Ipratropium Chilton 0.5 Mg/2.5 Ml Vial.Neb INHALATION 08/11/25 07:59 [...] <Electronically signed by Kevon Viera MD> 08/12/[address] [place] [address] Work Phone: [phone] 413-861803-10-2025 [place] [address] Hospitalist Progress Note Signed Patient: Myra Pickard SR MR#: [id number] : 1965 Acct:[id number] Age/Sex: 59 / M Adm Date: 5 Loc: Room: [address] [place] [address] Type: ADM IN Attending Dr: Kevon Viera [...] 1 units TID.WM.HS [facility] Administration Protocol Ipratropium Chilton 0.5 mg 08/11/24 08:00 08/12/24 12:31 Ipratropium Chilton 0.5 Mg/2.5 Ml Vial.Neb INHALATION 08/11/25 07:59 [...] 08/12/24 15 12 Signed By: 08/12/24 1516 [facility]03-10-2025 Progress note Author Maurice Francis [facility] Note Date/Time August 12, 2024 11: 47am [facility] [address] [place] [address] Nephrology Progress Note Signed Patient: Myra Pickard MR#: [id number] : 1965 Acct:[id number] Age/Sex: 59 / M Adm Date: 5 Loc: Room: [address] [place] [address] Type: ADM IN Attending Dr: Kevon Viera [...] Skin: No rashes , warm to touch TOOL KEEPER: Awake,Alert, 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 Musculoskeletal: No swelling [...] 1,000 Mcg/Ml Vial) 1,000 mcg IM DAILY [facility] Stop: 08/17/24 09:01 Last Admin: 08/12/24 [...] 1,000 mls @ 125 mls/hr IV .Q8H [facility] Stop: 08/11/25 07:14 Last Admin: 08/12/24 08:26 Dose: 125 mls/hr Ferric Sodium Gluconate Complex 250 mg/ Sodium Chloride 270 mls @ 135 mls/hr IVQAM [facility] Stop: 08/14/24 10:59 Last Admin: 08/12/24 09:19 Dose: 135 mls/hr Insulin Aspart (Insulin Aspart 300 Units/3 Ml) 0 units SUBCUT TID.WM.HS [facility]; Protocol Stop: 08/11/25 07:59 Last Admin: 08/12/24 08:27 Dose: Not Given Ipratropium Chilton (Ipratropium [place] 0.5 Mg/2.5 Ml Vial.Neb) 0.5 mg INHALATION QID.RESP [facility] Stop: 08/11/25 07:59 Last Admin: 08/12/24 08:51 Dose: 0.5 mg Isosorbide Mononitrate (Isosorbide Mononitrate 24hr Er 30 Mg Tab.Er.24h) 30 mg PO DAILY [facility] Stop: 08/11/25 08:59 Last Admin: 08/12/24 08:27 Dose: 30 mg Metoprolol Tartrate (Metoprolol Tartrate 100 Mg Tablet) 100 mg PO BID [facility] Stop: 08/11/25 08:59 Last Admin: 08/12/24 08:27 Dose: 100 mg Pantoprazole Sodium (Pantoprazole 40 Mg Tablet.Dr) 40 mg PO BID [facility] Stop: 08/11/25 08:59 Last Admin: 08/12/24 08:27 Dose: 40 mg Pregabalin (Pregabalin 75 Mg Capsule) 75 mg PO TID [facility] Stop: 02/07/25 08:59 Last Admin: 08/12/24 08:27 Dose: 75 mg Ropinirole HCl (Ropinirole 1 Mg Tablet) 1 mg PO TID [facility] Stop: 08/11/25 08:59 Last Admin: 08/12/24 08:27 Dose: 1 mg Tamsulosin HCl (Tamsulosin 0.4 Mg Cap.Er.24h) 0.4 mg PO BID [facility] Stop: 08/11/25 08:59 Last Admin: 08/12/24 [...] <Electronically signed by Maurice Francis MD> 08/12/24 1141 [facility] Work Phone: [phone]) 433-227203-10-2025 [place] [address] Nephrology Progress Note Signed Patient: Myra Pickard SR MR#: [id number] : 1965 Acct:[id number] Age/Sex: 59 / M Adm Date: 5 Loc: 3T Room: [address] [place] [address] Type: ADM IN Attending Dr: Kevon Viera [...] Skin: No rashes , warm to touch TOOL KEEPER: Awake,Alert, 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 Musculoskeletal: No swelling [...] 81 Mg Tablet.) 81 mg PO DAILY [facility] Stop: 08/11/25 08:59 Last Admin: 08/12/24 [...] Mg/200 Unit Tablet) 2 tab PO TID.WITH.MEALS [facility] Stop: 08/11/25 07:59 Last Admin: 08/12/24 08:27 Dose: 2 tab Clopidogrel Bisulfate (Clopidogrel Bisulfate 75 Mg Tablet) 75 mg PO DAILY [facility] Stop: 08/11/25 08:59 Last Admin: 08/12/24 08:27 Dose: 75 mg Cyanocobalamin (Cyanocobalamin 1,000 Mcg/Ml Vial) 1,000 mcg IM DAILY [facility] Stop: 08/17/24 09:01 Last Admin: 08/12/24 [...] 1,000 mls @ 125 mls/hr IV .Q8H [facility] Stop: 08/11/25 07:14 Last Admin: 08/12/24 08:26 Dose: 125 mls/hr Ferric Sodium Gluconate Complex 250 mg/ Sodium Chloride 270 mls @ 135 mls/hr IVQAM [facility] Stop: 08/14/24 10:59 Last Admin: 08/12/24 09:19 Dose: 135 mls/hr Insulin Aspart (Insulin Aspart 300 Units/3 Ml) 0 units SUBCUT TID.WM.HS [facility]; Protocol Stop: 08/11/25 07:59 Last Admin: 08/12/24 08:27 Dose: Not Given Ipratropium Chilton (Ipratropium Ch[place] 0.5 Mg/2.5 Ml Vial.Neb) 0.5 mg INHALATION QID.RESP [facility] Stop: 08/11/25 07:59 Last Admin: 08/12/24 08:51 Dose: 0.5 mg Isosorbide Mononitrate (Isosorbide Mononitrate 24hr Er 30 Mg Tab.Er.24h) 30 mg PO DAILY [facility] Stop: 08/11/25 08:59 Last Admin: 08/12/24 08:27 Dose: 30 mg Metoprolol Tartrate (Metoprolol Tartrate 100 Mg Tablet) 100 mg PO BID [facility] Stop: 08/11/25 08:59 Last Admin: 08/12/24 08:27 Dose: 100 mg Pantoprazole Sodium (Pantoprazole 40 Mg Tablet.Dr) 40 mg PO BID [facility] Stop: 08/11/25 08:59 Last Admin: 08/12/24 08:27 Dose: 40 mg Pregabalin (Pregabalin 75 Mg Capsule) 75 mg PO TID [facility] Stop: 02/07/25 08:59 Last Admin: 08/12/24 08:27 Dose: 75 mg Ropinirole HCl (Ropinirole 1 Mg Tablet) 1 mg PO TID [facility] Stop: 08/11/25 08:59 Last Admin: 08/12/24 08:27 Dose: 1 mg Tamsulosin HCl (Tamsulosin 0.4 Mg Cap.Er.24h) 0.4 mg PO BID [facility] Stop: 08/11/25 08:59 Last Admin: 08/12/24 [...] MD 08/12/24 1115 Signed By: 08/12/24 1147 [facility]03-09-2025 Consult note Author Amina Fagan [facility] Note Date/Time August 11, 2024 2:18 pm [facility] [address] [place] [address] Nephrology Consult Note Signed Patient: Myra Pickard SR MR#: [id number] : 1965 Acct:[id number] Age/Sex: 59 / M Adm Date: 5 Loc: Room: [address] [place] [address] Type: ADM IN Attending Dr: Kevon Viera MD Copies to: MD Teresa Stewart DO Obaydah M Daromar, MD~ Providers Consult Date: 08/11/24 Requesting Provider: Kevon Viera MD Primary Care Provider: Teresa Lynch DO [facility] Reason for Consult: Acute kidney injury on [...] reviewed 12 system review is negative today [facility] Medical History Chronic obstructive pulmonary disease, unspecified [...] mass Atrial fibrillation 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 by Dr. Simon Hernández Vascular History of [...] [History Confirmed 08/11/24] flash glucose scanning reader ([employer] Jigar 2 [place]) #1 ea 12/28/23 [Rx Confirmed 08/11/24] flash glucose sensor (iWeb TechnologiesStyle Jigar 2 Sensor kit) #1 ea 12/28/23 [...] 32 gauge x 5/32 (Comfort EZ Pen Irvona) #100 ea 04/15/24 [Rx Confirmed 08/11/24] hydroxyzine [...] Q4-6H PRN pain 2 days #6 tabs 02/11/25 [Rx] doxycycline hyclate 100 mg capsule 100 [...] 25 Mg Tablet) 25 mg PO HS [facility] Stop: 08/11/25 21:59 Aspirin (Aspirin 81 Mg Tablet.) 81 mg PO DAILY [facility] Stop: 08/11/25 08:59 Last Admin: 08/11/24 09:13 Dose: 81 mg Atorvastatin Calcium (Atorvastatin 80 Mg Tablet) 80 mg PO DAILY [facility] Stop: 08/11/25 08:59 Last Admin: 08/11/24 09:14 Dose: 80 mg Budesonide/Formoterol Fumarate (Budesonide/Formoterol 160-4.5 Mcg 60 Puff/6 Gm Hfa.Aer.Ad) 2 puff INHALATION BID [facility] Stop: 08/11/25 08:59 Last Admin: 08/11/24 09:41 Dose: 2 puff Calcium Carbonate (Calcium Carbonate/Vitamin D3 500 Mg/200 Unit Tablet) 2 tab PO TID.WITH.MEALS [facility] Stop: 08/11/25 07:59 Last Admin: 08/11/24 13:40 Dose: 2 tab Clopidogrel Bisulfate (Clopidogrel Bisulfate 75 Mg Tablet) 75 mg PO DAILY [facility] Stop: 08/11/25 08:59 Last Admin: 08/11/24 09:14 Dose: 75 mg Cyanocobalamin (Cyanocobalamin 1,000 Mcg/Ml Vial) 1,000 mcg IM DAILY [facility] Stop: 08/17/24 09:01 Last Admin: 08/11/24 [...] 5,000 Unit/Ml Vial) 5,000 unit SUBCUT Q12HR [facility] Stop: 08/11/25 08:59 Last Admin: 08/11/24 [...] 1,000 mls @ 125 mls/hr IV .Q8H [facility] Stop: 08/11/25 07:14 Last Admin: 08/11/24 11:51 Dose: 125 mls/hr Insulin Aspart (Insulin Aspart 300 Units/3 Ml) 0 units SUBCUT TID.WM.HS [facility]; Protocol Stop: 08/11/25 07:59 Last Admin: 08/11/24 13:40 Dose: Not Given Ipratropium Chilton (Ipratropium [place] 0.5 Mg/2.5 Ml Vial.Neb) 0.5 mg INHALATION [...] Appearance Clear Urine pH 5.5 Ur Specific [place] 1.024 Urine Protein Negative Urine Glucose (UA) 500 H Urine Ketones Negative Urine Occult Blood Negative Urine Nitrite Negative Ur Leukocyte Esterase Negative Radiology Impressions Impressions - last 24 hours: Impressions Chest X-Ray 08/11/24 04:22 IMPRESSION: No acute process. Impression dictated by: Sudeep Lind M.D.08/11/2024 10:06 AM Dictation Location: [employer] [place] 08/11/24 04:22 IMPRESSION: No acute [...] Sudeep Lind M.D.08/11/2024 10:06 AM Dictation [facility] Any impression(s) listed above is documentation that [...] or concern Documented By: Amina Fagan MD 08/11/241404 Signed By: <Electronically signed by Amina Fagan MD> 08/11/24 3820 [facility] Work Phone: 1(842) 240-475903-09-2025 Progress note Author Kevon Viera [facility] Note Date/Time August 11, 2024 1:21 pm [facility] [address] [place] [address] Progress Note Signed Patient: Myra Pickard MR#: [id number] : 1965 Acct:[id number] Age/Sex: 59 / M Adm Date: 5 Loc: 3T Room: [address] [place] [address] Type: ADM IN Attending Dr: Kevon Viera [...] <Electronically signed by Kevon Viera MD> 08/11/[address] [place] [address] Work Phone: 1([phone]) [phone] [place] [address] Nephrology Consult Note Signed Patient: Myra Pickard SR MR#: [id number] : 1965 Acct:[id number] Age/Sex: 59 / M Adm Date: 5 Loc: 3T Room: [address] [place] [address] Type: ADM IN Attending Dr: Kevon Viera [...] reviewed 12 system review is negative today [facility] Medical History Chronic obstructive pulmonary disease, unspecified [...] mass Atrial fibrillation 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 by Dr. Simon Hernández Vascular History of [...] 07/12/23[History Confirmed 08/11/24] flash glucose scanning reader (iWeb [employer]Style Jigar 2 [place]) #1 ea 12/28/23 [Rx Confirmed 08/11/24] flash [...] 32 gauge x 5/32 (Comfort EZ Pen Irvona) #100 ea 04/15/24 [Rx Confirmed 08/11/24] hydroxyzine [...] 25 Mg Tablet) 25 mg PO HS [facility] Stop: 08/11/25 21:59 Aspirin (Aspirin 81 Mg Tablet.) 81 mg PO DAILY [facility] Stop: 08/11/25 08:59 Last Admin: 08/11/24 09:13 Dose: 81 mg Atorvastatin Calcium (Atorvastatin 80 Mg Tablet) 80 mg PO DAILY [facility] Stop: 08/11/25 08:59 Last Admin: 08/11/24 09:14 Dose: 80 mg Budesonide/Formoterol Fumarate (Budesonide/Formoterol 160-4.5 Mcg 60 Puff/6 Gm Hfa.Aer.Ad) 2 puff INHALATION BID [facility] Stop: 08/11/25 08:59 Last Admin: 08/11/24 [...] 1,000 Mcg/Ml Vial) 1,000 mcg IM DAILY [facility] Stop: 08/17/24 09:01 Last Admin: 08/11/24 [...] 5,000 Unit/Ml Vial) 5,000 unit SUBCUT Q12HR [facility] Stop: 08/11/25 08:59 Last Admin: 08/11/24 [...] 300 Units/3 Ml) 0 units SUBCUT TID.WM.HS [facility]; Protocol Stop: 08/11/25 07:59 Last Admin: 08/11/24 13:40 Dose: Not Given Ipratropium Chilton (Ipratropium Chilton 0.5 Mg/2.5 Ml Vial.Neb) 0.5 mg INHALATION [...] 4 Mg Tablet) 4 mg PO QHS [facility] Stop: 08/11/25 21:59 Exam Physical Exam [...] Appearance Clear Urine pH 5.5 Ur Specific [place] 1.024 Urine Protein Negative Urine Glucose (UA) 500 H Urine Ketones Negative Urine Occult Blood Negative Urine Nitrite Negative Ur Leukocyte Esterase Negative Radiology Impressions Impressions - last 24 hours: Impressions Chest X-Ray 08/11/24 04:22 IMPRESSION: No acute process. Impression dictated by: Sudeep Lind M.D.08/11/2024 10:06 AM Dictation Location: [place] [address] 08/11/24 04:22 IMPRESSION: No acute [...] Sudeep Lind M.D.08/11/2024 10:06 AM Dictation Location: [place] [address] Any impression(s) listed above is documentation that [...] concern Documented By: Amina Fagan MD 08/11/24 2535 Signed By: 08/11/24 1418 [facility]03-09-2025 [facility] [place] [id number] Progress Note Signed Patient: Myra Pickard SR MR#: [id number] : 1965 Acct:[id number] Age/Sex: 59 / M Adm Date: 5 Loc: 3T Room: [address] [place] [address] Type: ADM IN Attending Dr: Kevon Viera [...] Documented By: Kevon Viera MD 08/11/24 13 Signed By: 08/11/[address] [place], [place] 0184403-09-2025 Radiology Diagnostic study note [facility] Main [place] [address] [place] [address] CT Scan Report Signed Patient: Myra Pickard SR MR#: [id number] : 1965 Acct:[id number] Age/Sex: 59 / M ADM Date: 5 Loc: 3T Room: [address] [place] [address] Type: ADM IN Attending Dr: Kevon Viera MD Copies to: MD Francisco Urbina Jr, MD~ Ordering Provider: Francisco Duncan Jr, MD Date of Service: 08/11/24 CT/CT head stroke alert wo con: acute stroke/neuro deficits ([id number]) CT/CT angio neck: L side numb ([id number]) CT/CT angio head: L side numb Unenhanced [...] Sudeep Lind M.D.08/11/2024 10:06 AM Dictation Location: [facility]20 Transcribed By: [facility] 08/11/24 1006 Dictated By: Sudeep Lind DO 08/11/24 1000 Signed By: 08/11/24 1006 [facility]03-09-2025 History and physical note Author Marge Andino [facility] Note Date/Time August 11, 2024 7:24 am [facility] [address] [place] [address] Hospitalist H&P Signed Patient: Myra Pickard SR MR#: [id number] : 1965 Acct:[id number] Age/Sex: 59 / M Adm Date: 5 Loc: 3T Room: [address] [place] [address] Type: ADM IN Attending Dr: Kevon Viera MD Copies to: Teresa P DO Kevon Lynch MD Ruta Semaskiene, MD~ HPI DATE OF [...] neck without acute findings -official report pending [facility] Medical History Chronic obstructive pulmonary disease, unspecified [...] mass Atrial fibrillation 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 by Dr. Simon Hernández Vascular History of [...] [History Confirmed 08/11/24] flash glucose scanning reader ([employer]Style Jigar 2 [place]) #1 ea 12/28/23 [Rx Confirmed 08/11/24] flash [...] 32 gauge x 5/32 (Comfort EZ Pen Irvona) #100 ea 04/15/24 [Rx Confirmed 08/11/24] hydroxyzine [...] dulaglutide 0.75 mg/0.5 mL subcutaneous pen injector (Joelulicity) 0.75 mg (0.5 mL) subcut QWEEK #2 [...] 04:15 Lymph % (Auto) N/A 08/11/24 04:15 [place] % (Auto) N/A 08/11/24 04:15 Eos % (Auto) N/A 08/11/24 04:15 Baso % (Auto) N/A 08/11/24 04:15 Nucleat RBC Rel Count N/A 08/11/24 04:15 Neut # (Auto) N/A 08/11/24 04:15 Lymph # (Auto) N/A 08/11/24 04:15 [place] # (Auto) N/A 08/11/24 04:15 Eos # [...] <Electronically signed by Marge Andino MD> 08/11/24 07 [facility] Work Phone: 1(864) 242-195603-09-2025 Evaluation note* Diagnosis Onset Date Resolution Status Admit Date Acute kidney injury superimp osed on CKD acute August 11, 2024 5:39am BPH loc w urin obs/LUTS acute [facility] 2024 5:39am Diabetes acute August 11 5:39am Hypocalcemia acute August 11 025 5:39am Hypokalemia acute August 11 5:39am Hypomagnesemia acute August 11, 2024 5:39am Iron deficiency acute August 5:39am Left sided numbness acute August 11, 2024 5:39am Paresthesias acute August 11 2 025 5:39am Vitamin B12 deficiency acute [facility] 2024 5:39am Hypertension chronic August 11 2 025 5:39am [facility] Work Phone: [phone]) [phone] Evaluation note* Diagnosis Onset Date Resolution Status Admit Date Hypocalcemia acute August 11, 2 025 5:39am Hypokalemia acute August 11 5:39am Hypomagnesemia acute August 11, 2024 5:39am Acute kidney injury superimp osed on CKD inactive August 11, 2024 5:39am BPH loc w urin obs/LUTS inactive [facility] 2024 5:39am Diabetes inactive August 11 5:39am Hypertension inactive August 11 025 5:39am Iron deficiency inactive August 5:39am Left sided numbness inactive August 11, 2024 5:39am Paresthesias inactive August 11 025 5:39am Vitamin B12 deficiency inactive [facility] 2024 5:39am Anemia of renal disease acute [facility] 2024 8:37am Chronic kidney disease, stage 3b acu te August 30, 2024 8:37am 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 acute [facility] 2024 8:37am Hypocalcemia acute August 30, 2024 8:37am Hypokalemia acute August 30 8:37am Hypomagnesemia acute August 8:37am Neuropathy acute August 30 8:37am Non compliance w medication regimen acute August 30, 2024 8:37am [facility] Work Phone: 1(659) 319-376803-09-2025 Evaluation note* Diagnosis Onset Date Resolution Status Admit Date Hypocalcemia acute August 11, 5:39am Hypokalemia acute August 11 5:39am Hypomagnesemia acute August 11, 2024 5:39am Acute kidney injury superimp osed on CKD inactive August 11, 2024 5:39am BPH loc w urin obs/LUTS inactive [facility] 2024 5:39am Diabetes inactive August 11 5:39am Hypertension inactive August 11 025 5:39am Iron deficiency inactive August 5:39am Left sided numbness inactive August 11, 2024 5:39am Paresthesias inactive August 11 025 5:39am Vitamin B12 deficiency inactive [facility] 2024 5:39am Anemia of renal disease acute [facility] 2024 8:37am Chronic kidney disease, stage 3b acu te August 30, 2024 8:37am 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 acute [facility] 2024 8:37am Hypocalcemia acute August 30, 2024 8:37am Hypokalemia acute August 30 025 8:37am Hypomagnesemia acute August 8:37am Neuropathy acute August 30 8:37am Non compliance w medication regimen acute August 30, 2024 8:37am Chest pain acute October 10, 2024 6:25pm [facility] Work Phone: [phone] Evaluation note* Diagnosis Onset Date Resolution Status Admit Date Hypocalcemia acute August 11, 025 5:39am Hypokalemia acute August 11 5:39am Hypomagnesemia acute August 11, 2024 5:39am Acute kidney injury superimp osed on CKD inactive August 11, 2024 5:39am BPH loc w urin obs/LUTS inactive [facility] 2024 5:39am Diabetes inactive August 11 5:39am Hypertension inactive August 11, 025 5:39am Iron deficiency inactive August 5:39am Left sided numbness inactive August 11, 2024 5:39am Paresthesias inactive August 11 025 5:39am Vitamin B12 deficiency inactive [facility] 2024 5:39am Anemia of renal disease acute [facility] 2024 8:37am Chronic kidney disease, stage 3b acu te August 30, 2024 8:37am 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 acute [facility] 2024 8:37am Hypocalcemia acute August 30, 2024 8:37am Hypokalemia acute August 30 8:37am Hypomagnesemia acute August 8:37am Neuropathy acute August 30 8:37am Non compliance w medication regimen acute August 30, 2024 8:37am CAD (coronary artery disease) inacti ve October 10, 2024 6:25pm Chronic kidney disease inactive Ms 2024 6:25pm Chronic obstructive pulmonar y disease, unspecified inactive October 10 6:25pm History of below-knee amputa tion of right lower extremity inactive October 6:25pm Hyperlipidemia inactive October 10 025 6:25pm Chest pain deleted October 10, 2024 6:25pm [facility] Work Phone: 1([phone]) 439-946403-09-2025 Evaluation note* Diagnosis Onset Date Resolution Status Admit Date Hypocalcemia acute August 11, 2 025 5:39am Hypokalemia acute August 11 5:39am Hypomagnesemia acute August 11, 2024 5:39am Iron deficiency acute August 5:39am Vitamin B12 deficiency acute [facility] 2024 5:39am Acute kidney injury superimp osed on CKD inactive August 11, 2024 5:39am BPH loc w urin obs/LUTS inactive [facility] 2024 5:39am Diabetes inactive August 11 5:39am Hypertension inactive August 11, 025 5:39am Left sided numbness inactive August 11, 2024 5:39am Paresthesias inactive August 11, 025 5:39am Anemia of renal disease acute [facility] 2024 8:37am Chronic kidney disease, stage 3b acu te August 30, 2024 8:37am 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 acute [facility] 2024 8:37am Hypocalcemia acute August 30, 2024 8:37am Hypokalemia acute August 30, 025 8:37am Hypomagnesemia acute August 8:37am Neuropathy acute August 30 8:37am Non compliance w medication regimen acute August 30, 2024 8:37am CAD (coronary artery disease) acute October 10, 2024 6:25pm History of below-knee amputa tion of right lower extremity acute October 6:25pm Chronic kidney disease inactive Ms 2024 6:25pm Chronic obstructive pulmonar y disease, unspecified inactive October 10 6:25pm Hyperlipidemia inactive October 10, 025 6:25pm Chest pain deleted October 10, 2024 6:25pm Anemia of renal disease acute [facility] 2024 1:08pm CAD (coronary artery disease) acute November 05, 2024 1:08pm Cigarette nicotine dependenc e with nicotine-induced disorder acute [facility] 2024 1:08pm 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 acute [facility] 2024 1:08pm History of below-knee amputa tion of right lower extremity acute November 1:08pm Hypocalcemia acute November 05 1:08pm Vitamin D deficiency acute November 05, 2024 1:08pm Anemia of renal disease acute [facility] 2024 4:13pm BMI 34.0-34.9,adult acute November 05, 2024 4:13pm Chronic kidney disease, stage 3b acu te November 05, 2024 4:13pm 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 acute 2024 4:13pm Gout acute November 05, 2024 4:13pm Hypertensive nephropathy acute November 05, 2024 4:13pm Hypomagnesemia acute November 05, 2024 4:13pm Iron deficiency acute November 05, 2024 4:13pm Vitamin D deficiency acute November 05, 2024 4:13pm BPH loc w urin obs/LUTS inactive [facility] 2024 4:13pm [facility] Work Phone: [phone]) 539-114403-09-2025 Evaluation note* Diagnosis Onset Date Resolution Status Admit Date Hypocalcemia acute August 11, 2 025 5:39am Hypokalemia acute August 11 5:39am Hypomagnesemia acute August 11, 2024 5:39am Acute kidney injury superimp osed on CKD inactive August 11, 2024 5:39am BPH loc w urin obs/LUTS inactive [facility] 2024 5:39am Diabetes inactive August 11 5:39am Hypertension inactive August 11, 2 025 5:39am Iron deficiency inactive August 5:39am Left sided numbness inactive August 11, 2024 5:39am Paresthesias inactive August 11, 2 025 5:39am Vitamin B12 deficiency inactive [facility] 2024 5:39am Anemia of renal disease acute [facility] 2024 8:37am Chronic kidney disease, stage 3b acu te August 30, 2024 8:37am 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 acute [facility] 2024 8:37am Hypocalcemia acute August 30, 2024 8:37am Hypokalemia acute August 30, 2 025 8:37am Hypomagnesemia acute August 8:37am Neuropathy acute August 30 8:37am Non compliance w medication regimen acute August 30, 2024 8:37am CAD (coronary artery disease) acute October 10, 2024 6:25pm History of below-knee amputa tion of right lower extremity acute October 6:25pm Chronic kidney disease inactive 2024 6:25pm Chronic obstructive pulmonar y disease, [...] D deficiency acute November 05, 2024 1:08pm [facility] Work Phone: 1([phone]) 189-763903-09-2025 [place] [address] Hospitalist H&P Signed Patient: Myra Pickard SR MR#: [id number] : 1965 Acct:[id number] Age/Sex: 59 / M Adm Date: 5 Loc: Room: [address] [place] [address] Type: ADM IN Attending Dr: Kevon Viera [...] neck without acute findings -official report pending [facility] Medical History Chronic obstructive pulmonary disease, unspecified [...] mass Atrial fibrillation 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 by Dr. Simon Hernández Vascular History of [...] 07/12/23[History Confirmed 08/11/24] flash glucose scanning reader ([employer] Jigar 2 [place]) #1 ea 12/28/23 [Rx Confirmed 08/11/24] flash glucose sensor (iWeb [employer]Style Jigar 2 Sensor kit) #1 ea 12/28/23 [...] 32 gauge x 5/32 (Comfort EZ Pen Irvona) #100 ea 04/15/24 [Rx Confirmed 08/11/24] hydroxyzine [...] 04:15 Lymph % (Auto) N/A 08/11/24 04:15 [place] % (Auto) N/A 08/11/24 04:15 Eos % (Auto) N/A 08/11/24 04:15 Baso % (Auto) N/A 08/11/24 04:15 Nucleat RBC Rel Count N/A 08/11/24 04:15 Neut # (Auto) N/A 08/11/24 04:15 Lymph # (Auto) N/A 08/11/24 04:15 [place] # (Auto) N/A 08/11/24 04:15 Eos # [...] Marge Andino MD 08/11/24 0717 Signed By: 08/11/2424 [facility]03-04-2025 NotePatient Education Urology Orchitis Orchitis is [...] virus). ? The virus that causes mononucleosis (Eddie?Lkahani virus). What increases the risk? The following [...] by your health care provider. ??? Take oksx-bgp-quiargr and prescription medicines only as told by [...] medicines to fight th (more content not included)...[facility]12-23-2024 Hospital Discharge instructions Patient Education 05/27/2024 [...] urethra. Follow these instructions at home: Take xcfz-yvc-xhpfujh and prescription medicines only as told by [...] provider. Document Revised: 12/08/2021 Document Reviewed: 12/08/2021 [employer] Patient Education 2023 [employer]. Follow Up Care 04/01/2024 10:56:08 With:Stephanie ROWE MDrick R, URL Address: [facility] [address] [place] [phone] When: Unknown [facility] 12-23-2024 NotePatient Education Urology Benign [...] Follow these instructions at home: ??? Take xktq-zhr-wimrdnx and prescription medicines only as told by [...] symptoms do not get (more content not included)...[facility]12-23-2024 Evaluation + Plan note Diagnostic Tests Pending * PSA Total 05/27/24 Future Scheduled Tests Radiology* US PVR Lower EXT Complete Bilat 11/20/23 [facility] 12-03-2024 Evaluation note* Diagnosis Onset Date Resolution Status Admit Date Anemia of renal disease acute D ecember 2023 4:21pm BMI 34.0-34.9,adult acute Decem rohit 2023 4:21pm BPH loc w urin obs/LUTS acute D ecember 2023 4:21pm Chronic kidney disease, stag e 3b acute May 07 4:21pm 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 acute De cember 2023 4:21pm Gout acute May 07, 2024 4:21pm Hypertensive nephropathy acute May 07, 2024 4:21pm Hypomagnesemia acute May 072023 4:21pm [facility] Work Phone: 1(214) 945-494811-19-2024 [place] [address] EGD Procedure Note Signed Patient: Myra Pickard SR MR#: [id number] : 1965 Acct:[id number] Age/Sex: 58 / M Adm Date: 4 Loc: Room: Type: [facility] Attending Dr: Mike Burleson MD Copies [...] MD Documented By: Mike Burleson MD 04/23/24 6482 Signed By: 04/23/24 5904 [facility]11-19-2024 [place] [id number] Gastroenterology H&P Signed Patient: Myra Pickard SR MR#: [id number] : 1965 Acct:[id number] Age/Sex: 58 / M Adm Date: 4 Loc: Room: Type: [facility] Attending Dr: Mike Burleson MD Copies [...] MD 04/23/24 1349 Signed By: 04/23/24 1350 [facility]11-01-2024 Evaluation note* Author Cat Byrd [facility] Authored April 05, 2024 1 :29pm Sooner if needed, the ER if concerns,The above note written by Cat Byrd LPN acting as human recorder, note dictated by Dr. Teresa Lynch [facility] Work Phone: 1(266) 766-268410-18-2024 Miscellaneous Notes* Telephone Encounter - Moncho Stevenson - 03/22/2024 11:24 PM EDT Contract: 198 - Re: high Blood Sugars . Called Dr. Tam and connected to caller documented in this [facility]Ohio[facility] Telephone encounter Note* Telephone Encounter - Moncho Stevenson - 03/22/2024 11:24 PM EDT Contract: 198 - Re: high Blood Sugars . Called Dr. Tam and connected to caller [facility] Gym [id number] History of Present illness Narrative* Guero Tam, - 03/19/2024 5:25 PM EDT Patient Name: Myra Pickard Date of : 1965 Date of Service: 03/19/2024 Facility: [facility] Type of Visit: Skilled Visit Subjective [...] polyneuropathy associated with type 2 diabetes mellitus ([facility]) 2. Encounter for orthopedic aftercare following surgical [...] BY: Guero Tam DO documented in this encounterOhioHealth [facility] CenterLottay10-11-2024 History of Present illness Narrative* Gueor Tam DO - 03/15/2024 6:27 PM EDT Patient Name: Myra Pickard Date of : 1965 Date of Service: 03/15/2024 Facility: [facility] Type of Visit: Admission H&P Subjective Myra Pickard is a 58 y.o. male [facility] facility for [facility] for therapies. Myra returns to [facility] from [facility] where he was admitted for altered mental [...] polyneuropathy associated with type 2 diabetes mellitus ([facility]) 2. Disorientation 3. Other abnormalities of gait and mobility 4. Status post partial amputation of right foot ([facility] 5. Atherosclerosis of ely shoshone coronary artery of ely shoshone heart without angina pectoris 6. Atrial fibrillation ([facility]) 7. Primary hypertension Admit to [facility] for therapies. Plan to do therapy and then go home in a few weeks. Continue current regimen. Full code. Good rehab potential. ELECTRONICALLY SIGNED BY: Guero Tam DO documented in this [facility]10-11-2024 Miscellaneous Notes* Telephone Encounter - Nancy Kim CMA - 03/15/2024 10:10 AM EDT Patients spouse called in to question about getting a biological science technician fish sock. Stated patient is currently isi a care facility. Please advise and call spouse. documented in this [facility]10-11-2024 Telephone encounter Note* Telephone Encounter - Nancy Kim CMA - 03/15/2024 10:10 AM EDT Patients spouse called in to question about getting a biological science technician fish sock. Stated patient is currently [facility] facility. Please advise and call spouse. [id number] Discharge summary Author Remberto Ervin [facility] March 13, 2024 9:46am Note Date/Time March 13, 2024 9: 46am [facility] [address] [place] [address] Discharge Summary Signed Patient: Myra Pickard SR MR#: [id number] : 1965 Acct:[id number] Age/Sex: 58 / M Adm Date: 4 Loc: Room: [address] [place] [address]: Remberto Ervin MD Copies to: Teresa Lynch,DO Remberto Ervin MD~ Providers Date of Discharge: 03/13/24 Discharging [...] colleague in collaboration with other specialists and product support sales representative. Patient came in with a change in [...] ask her primary care doctor to obtain [facility] record entirely to address abnormalities seen on labs and imagingthat I have and have not addressed during this hospitalization, follow-up on pending blood work, imaging and pathology is if available and to follow-up on needed medical care in the outpatient setting. Time Spent with Patient Time spent providing/coordinating discharge services (# min): 45 Discharge Plan Discharge Plan Patient Disposition: Half-Way Facility Activity: No Activity Restriction Additional Instructions: I may not have addressed or treated all of your medical illnesses or the abnormal blood work or imaging studies during this hospitalization. Please ask your primary care provider to obtain [facility] records entirely to follow up on all of the abnormal physical, laboratory, and imaging findings that I have not addressed. Please return back to the emergency room or seek medical attention if your symptoms worsen or return. Discharging you from [facility] does not mean that your medical care [...] Instructions: As directed (DME) [employer] Jigar 2 [place] Misc See Rx Instructions .ROUTE Qty: 1 [...] 16:02 Blood Culture Stat 03/10/24 06:49 NMDA [K-gqrdrg-V-Aspartate IgG, Ser] IN AM Preliminary micro results [...] % (Auto) 66.7, Lymph % (Auto) 14.7, [place] % (Auto) 14.4, Eos % (Auto) 3.0, Baso % (Auto) 1.2, Nucleat RBC Rel Count 0.1, Neut # (Auto) 4.0, Lymph # (Auto) 0.9 L, [place] # (Auto) 0.9 H, Eos # (Auto) [...] signed by Remberto Ervin MD> 03/13/24 0946 [facility] Work Phone: 1(306) 879-864410-08-2024 Progress note Author João Powell [facility] March 12, 2024 1:46pm Note Date/Time March 12, 2024 1: 34pm [facility] [address] [place] [address] Hospitalist Progress Note Signed Patient: Myra Pickard SR MR#: [id number] : 1965 Acct:[id number] Age/Sex: 58 / M Adm Date: 4 Loc: Room: [address] [place] [address] Type: ADM IN Attending Dr: João Powell [...] 2 units TID.WM.HS SATISH Administration Protocol Ipratropium Chilton 0.5 mg 03/08/24 20:00 03/12/24 09:34 Ipratropium [place]ilton 0.5 Mg/2.5 Ml Vial.Neb INHALATION 03/08/25 19:59 [...] <Electronically signed by João Powell MD> 03/12/24 1344 [facility] Work Phone: 1(171) 360-856310-08-2024 Progress note Author Mike Burleson [facility] March 12, 2024 9:28am Note Date/Time March 12, 2024 9: 28am [facility] [address] [place] [address] Gastroenterology PN Signed Patient: Myra Pickard SR MR#: [id number] : 1965 Acct:[id number] Age/Sex: 58 / M Adm Date: 4 Loc: Room: [address] [place] [address] Type: ADM IN Attending Dr: João Powell [...] 1 units TID.WM.HS SATISH Administration Protocol Ipratropium [place]ilton 0.5 mg 03/08/24 20:00 03/12/24 06:05 Ipratropium [place]ilton 0.5 Mg/2.5 Ml Vial.Neb INHALATION 03/08/25 19:59 [...] <Electronically signed by Mike Burleson MD> 03/12/24927 [facility] Work Phone: 1(350) 642-321310-07-2024 Progress note Author João Powell [facility] March 11, 2024 1:38pm Note Date/Time March 11, 2024 1: 35pm [facility] [address] [place] [address] Hospitalist Progress Note Signed Patient: Myra Pickard SR MR#: [id number] : 1965 Acct:[id number] Age/Sex: 58 / M Adm Date: 4 Loc: Room: [address] [place] [address] Type: ADM IN Attending Dr: João Powell [...] 11:59 Not Given TID.WM.HS SATISH Protocol Ipratropium [place]ilton 0.5 mg 03/08/24 20:00 03/11/24 10:15 Ipratropium [place]ilton 0.5 Mg/2.5 Ml Vial.Neb INHALATION 03/08/25 19:59 [...] <Electronically signed by João Powell MD> 03/11/24 6454 [facility] Work Phone: 1([phone]) 927-130810-06-2024 Progress note Author Luther Dozier [facility] March 10, 2024 11:31am Note Date/Time March 10, 2024 11 :31am [facility] [address] [place] [address] Neurology Progress Note Signed Patient: Myra Pickard SR MR#: [id number] : 1965 Acct:[id number] Age/Sex: 58 / M Adm Date: Loc: Room: [address] [place] [address] Type: ADM IN Attending Dr: João Powell [...] Therapy Recommendations: PT Recommendations PT Recommended Discharge Half-Way Facility,Inpatient Rehab Unit Location PT Recommended Services [...] of breathing. He is alert. Oriented to [facility], March. Speech is fluent and nondysarthric. [...] signed by Luther Dozier DO> 03/10/24 1131 [facility] Work Phone: 1(781) 693-392010-06-2024 Consult note Author Mike Burleson [facility] March 10, 2024 11:29am Note Date/Time March 10, 2024 11 :29am [facility] [address] [place] [address] Gastroenterology Consult Note Signed Patient: Myra Pickard SR MR#: [id number] : 1965 Acct:[id number] Age/Sex: 58 / M Adm Date: 4 Loc: Room: [address] [place] [address] Type: ADM IN Attending Dr: João Powell [...] Denies easy bruising Allergic/Immunologic Allergic/Immunologic: Denies wheezing [facility] Medical History Vitamin D deficiency Spondylosis of [...] mass Atrial fibrillation Atherosclerotic heart disease of ely shoshone coronary artery with unspecified angina pectoris Anxiety [...] Use Type: None Social History Comments: at [facility] Meds Medications and Allergies [...] [History Confirmed 03/08/24] flash glucose scanning reader ([employer] Jigar 2 [place]) #1 ea 12/28/23 [Rx Confirmed 03/08/24] flash glucose sensor ([employer] Jigar 2 Sensor kit) #1 ea 12/28/23 [...] % (Auto) 83.4 Lymph % (Auto) 4.9 [place] % (Auto) 10.6 Eos % (Auto) 0.8 Baso % (Auto) 0.3 Nucleat RBC Rel Count 0.2 Neut # (Auto) 11.4 H Lymph # (Auto) 0.7 L [place] # (Auto) 1.5 H Eos # (Auto) [...] MPV Neut % (Auto) Lymph % (Auto) [place] % (Auto) Eos % (Auto) Baso % (Auto) Nucleat RBC Rel Count Neut # (Auto) Lymph # (Auto) [place] # (Auto) Eos # (Auto) Baso # [...] <Electronically signed by Mike Burleson MD> 03/10/24 1129 [facility] Work Phone: 1(269) 604-889910-06-2024 Progress note Author João Powell [facility] March 10, 2024 10:14am Note Date/Time March 10, 2024 10 :14am [facility] [address] [place] [address] Hospitalist Progress Note Signed Patient: Myra Pickard SR MR#: [id number] : 1965 Acct:[id number] Age/Sex: 58 / M Adm Date: 4 Loc: Room: [address] [place] [address] Type: ADM IN Attending Dr: João Powell [...] IV 03/10/25 09:22 DAILY PRN Hypomagnesemia Ipratropium Chilton 0.5 mg 03/08/24 20:00 03/10/24 05:25 Ipratropium [place]ilton 0.5 Mg/2.5 Ml Vial.Neb INHALATION 03/08/25 19:59 [...] signed by João Powell MD> 03/10/24 1014 [facility] Work Phone: 1(276) 355-148810-05-2024 Progress note Author João Powell [facility] March 09, 2024 11:32am Note Date/Time March 09, 2024 10 :57am [facility] [address] [place] [address] Hospitalist Progress Note Signed Patient: Myra Pickard SR MR#: [id number] : 1965 Acct:[id number] Age/Sex: 58 / M Adm Date: 4 Loc: Room: [address] [place] [address] Type: ADM IN Attending Dr: João Powell [...] 21:59 5,000 unit Q8HR SATISH Administration Ipratropium [place]ilton 0.5 mg 03/08/24 20:00 03/09/24 09:14 Ipratropium [place]ilton 0.5 Mg/2.5 Ml Vial.Neb INHALATION 03/08/25 19:59 [...] signed by João Powell MD> 03/09/24 1132 [facility] Work Phone: 1([phone] 799-145710-05-2024 Consult note Author Job James [facility] March 09, 2024 11:12am Note Date/Time March 09, 2024 11 :10am [facility] [address] [place] [address] Psychiatry Consult Note Signed Patient: Myra Pickard María CHRISTIAN MR#: [id number] : 1965 Acct:[id number] Age/Sex: 58 / M Adm Date: 4 Loc: 3T Room: 3S5190-7 Type : ADM IN Attending Dr: João [...] more like retaliation Insight: fair Judgment: fair [facility] Medical History Vitamin D deficiency Spondylosis of [...] mass Atrial fibrillation Atherosclerotic heart disease of ely shoshone coronary artery with unspecified angina pectoris Anxiety [...] Use Type: None Social History Comments: at [facility] Meds Medications and Allergies [...] [History Confirmed 03/08/24] flash glucose scanning reader ([employer] Jigar 2 [place]) #1 ea 12/28/23 [Rx Confirmed 03/08/24] flash glucose sensor ([employer] Jigar 2 Sensor kit) #1 ea 12/28/23 [...] Appearance Clear Urine pH 5.0 Ur Specific [place] 1.013 Urine Protein Negative Urine Glucose (UA) [...] signed by Job James MD> 03/09/24 1112 [facility] Work Phone: 1([phone] 220-456610-05-2024 Consult note Author Luther Dozier [facility] March 09, 2024 10:59am Note Date/Time March 09, 2024 9: 07am [facility] [address] [place] [address] Neurology Consult Note Signed Patient: Myra Pickard SR MR#: [id number] : 1965 Acct:[id number] Age/Sex: 58 / M Adm Date: 4 Loc: Room: [address] [place] [address] Type: ADM IN Attending Dr: João Powell MD Copies to: DO Teresa Freeman DO Mohamad Akil, MD~ HPI Consult Date: 03/09/24 [employer] Consultant: Luther Dozier DO [facility] Medical History Vitamin D deficiency Spondylosis of [...] mass Atrial fibrillation Atherosclerotic heart disease of ely shoshone coronary artery with unspecified angina pectoris Anxiety [...] Use Type: None Social History Comments: at [facility] Meds Medications and Allergies [...] [History Confirmed 03/08/24] flash glucose scanning reader ([employer] Jigar 2 [place]) #1 ea 12/28/23 [Rx Confirmed 03/08/24] flash [...] Marks Jr., D.O.03/08/2024 2:41 PM Dictation Location: [place] [address] Chest X-Ray 03/08/24 17:03 IMPRESSION: No acute process. Impression dictated by: Sudeep Lind M.D.03/08/2024 6:08 PM Dictation Location: [place] [address] Brain MRI 03/08/24 17:48 IMPRESSION: No acute intracranial process. Impression dictated by: Sudeep Lind M.D.03/08/2024 8:10 PM Dictation Location: [place] [address] Assessment/Plan (1) Altered mental status: Qualifiers: Altered mental status type: unspecified Qualified Code(s): R41.82 - Altered mental status, unspecified Plan CONSULT REASON: Sudden AMS, stroke ruled out HPI: 58-year-old man. History that includes coronary artery disease with PCI, peripheral vascular disease, type 2 diabetes, hypertension, heart failure, diabetic neuropathy, status post recent below the knee amputation at [facility]. He had just been here several days [...] <Electronically signed by Luther Dozier DO> 03/09/24 0116 [facility] Work Phone: 1(187) 299-817210-05-2024 History and physical note Author João Powell [facility] March 08, 2024 10:05pm Note Date/Time March 08, 2024 7: 19pm [facility] [address] [place] [address] Hospitalist H&P Signed Patient: Myra Pickard SR MR#: [id number] : 1965 Acct:[id number] Age/Sex: 58 / M Adm Date: 4 Loc: Room: [address] [place] [address] Type: ADM IN Attending Dr: João Powell [...] neuropathy status post right BKA recently at [facility], here today for altered mental status. History [...] neck were all negative. ED staff contacted [place] neuro stroke team and patient was deemed not eligible [place]. Patient is being admitted under the hospitalist [...] of Systems Unobtainable due to mental status [facility] Medical History Vitamin D deficiency Spondylosis of [...] mass Atrial fibrillation Atherosclerotic heart disease of ely shoshone coronary artery with unspecified angina pectoris Anxiety [...] Use Type: None Social History Comments: at [facility] Meds Medications and Allergies [...] [History Confirmed 03/08/24] flash glucose scanning reader ([employer] Jigar 2 [place]) #1 ea 12/28/23 [Rx Confirmed 03/08/24] flash glucose sensor ([employer] Jigar 2 Sensor kit) #1 ea 12/28/23 [...] % (Auto) 13.1 % (.) 03/08/24 14:15 [place] % (Auto) 13.2 % (.) 03/08/24 14:15 Eos % (Auto) 3.3 % (.) 03/08/24 14:15 Baso % (Auto) 1.0 % (.) 03/08/24 14:15 Nucleat RBC Rel Count 0.2 /100 WBC (0-0.5) 03/08/24 14:15 Neut # (Auto) 6.2 x10E3/uL (1.8-7.7) 03/08/24 14:15 Lymph # (Auto) 1.2 x10E3/uL (1.00-4.8) 03/08/24 14:15 [place] # (Auto) 1.2 x10E3/uL (0.0-0.8) H 03/08/24 [...] pH 5.0 (5.0-9.0) 03/08/24 16:11 Ur Specific [place] 1.013 (1.001-1.030) 03/08/24 16:11 Urine Protein Negative [...] By: <Electronically signed by João Powell MD> 03/08/240 [facility] Work Phone: 1(337) 666-257610-01-2024 Progress note Author Luther Dozier [facility] March 05, 2024 2:28pm Note Date/Time March 05, 2024 2: 22pm [facility] [address] [place] [address] Neurology Progress Note Signed Patient: Myra Pickard SR MR#: [id number] : 1965 Acct:[id number] Age/Sex: 58 / M Adm Date: 4 Loc: Room: [address] [place] [address] Type: ADM IN Attending Dr: João Powell [...] Therapy Recommendations: OT Recommendations OT Recommended Discharge Half-Way Facility Location PT Recommendations PT Recommended Discharge Half-Way Facility Location PT Recommended Services at Physical [...] signed by Luther Dozier DO> 03/05/24 1428 [facility] Work Phone: 1(704) 129-522710-01-2024 Progress note Author João Powell [facility] March 05, 2024 2:17pm Note Date/Time March 05, 2024 2: 17pm [facility] [address] [place] [address] Hospitalist Progress Note Signed Patient: Mrya Pickard SR MR#: [id number] : 1965 Acct:[id number] Age/Sex: 58 / M Adm Date: 4 Loc: Room: [address] [place] [address] Type: ADM IN Attending Dr: João Powell [...] 1,000 Ml IV 03/03/25 17:59 60 mls/hr .[id number] SATISH Administration Ferric Sodium Gluconate 110 mls @ 110 mls/hr 03/05/24 12:00 03/05/24 13:18 Complex 125 mg/ Sodium IV 03/07/24 09:01 110 mls/hr Chloride QAM SATISH Administration Insulin Aspart 0 units 03/04/24 12:00 03/05/24 11:41 Insulin Aspart 300 Units/3 Ml Insuln.Pen SUBCUT 03/04/25 11:59 Not Given TID.WM.HS SATISH Protocol Ipratropium Chilton 0.5 mg 03/04/24 09:00 03/05/24 13:59 Ipratropium [place]ilton 0.5 Mg/2.5 Ml Vial.Neb INHALATION 03/04/25 08:59 [...] Tablet. PO 03/04/25 08:59 40 mg BID ASTISH Administration Polyethylene Glycol 17 gm 03/04/24 09:00 [...] 45 Documented By: João Powell MD 03/05/24 140 Signed By: <Electronically signed by João Powell MD> 03/05/24 0188 [facility] Work Phone: 1(958) 737-871710-01-2024 Consult note Author Mike Burleson [facility] March 05, 2024 1:35pm Note Date/Time March 05, 2024 9: 32am [facility] [address] [place] [address] Gastroenterology Consult Note Signed Patient: Myra Pickard SR MR#: [id number] : 1965 Acct:[id number] Age/Sex: 58 / M Adm Date: 4 Loc: Room: [address] [place] [address] Type: ADM IN Attending Dr: João Powell MD Copies to: DO Mike Guzman MD Mohamad Akil, MD~ HPI Data of Consult Date of Consultation: 03/05/24 Requesting Physician: João Powell MD Consult Narrative History of present illness: Mr. 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 Anxiety [...] Use Type: None Social History Comments: at [facility] [place] for rehab Meds Medications and Allergies Allergies [...] 12/25/23[Rx Confirmed 03/03/24] flash glucose scanning reader ([employer] Jigar 2 [place]) #1 ea 12/28/23 [Rx Confirmed 03/03/24] flash glucose sensor ([employer] Jigar 2 Sensor kit) #1 ea 12/28/23 [...] MPV Neut % (Auto) Lymph % (Auto) [place] % (Auto) Eos % (Auto) Baso % (Auto) Nucleat RBC Rel Count Neut # (Auto) Lymph # (Auto) [place] # (Auto) Eos # (Auto) Baso # [...] Blood Type Recheck Antibody Screen Negative Crossmatch ([facility]) See Detail 03/04/24 03/04/24 03/04/24 13:07 14:29 16:32 Corrected WBC Uncorrected WBC Count RBC Hgb Hct MCV MCH MCHC RDW Plt Count MPV Neut % (Auto) Lymph % (Auto) [place] % (Auto) Eos % (Auto) Baso % (Auto) Nucleat RBC Rel Count Neut # (Auto) Lymph # (Auto) [place] # (Auto) Eos # (Auto) Baso # [...] O Positive Antibody Screen Crossmatch ([facility]) 03/04/24 03/05/24 03/05/24 20:45 06:11 06:54 Corrected WBC 8.3 Uncorrected WBC Count 8.3 RBC 3.83 L Hgb 8.6 L Hct 26.8 L MCV 70.1 L MCH 22.4 L MCHC 31.9 L RDW 21.4 H Plt Count 361 MPV 7.9 Neut % (Auto) 67.6 Lymph % (Auto) 16.1 [place] % (Auto) 12.4 Eos % (Auto) 2.8 Baso % (Auto) 1.1 Nucleat RBC Rel Count 0.0 Neut # (Auto) 5.6 Lymph # (Auto) 1.3 [place] # (Auto) 1.0 H Eos # (Auto) [...] evaluation. -Recommend obtaining prior GI workup from [facility] -I recommend continuing his PPI -Recommend avoiding [...] follow-up with his previous GI team at [facility] Thank you for this consult, little further to add from a GI standpoint. I will peripherally follow pending discharge. Documented By: Mike Burleson MD 03/05/24 0932 Signed By: <Electronically signed by Mike Burleson MD> 03/05/[address] [place] [address] Ctr Work Phone: 1(136) 498-382109-30-2024 Consult note Author Luther Dozier [facility] March 04, 2024 12:57pm Note Date/Time March 04, 2024 12:57pm [facility] [address] [place] [address] Neurology Consult Note Signed Patient: Myra Pickard SR MR#: [id number] : 1965 Acct:[id number] Age/Sex: 58 / M Adm Date: 4 Loc: Room: [address] [place] [address] Type: ADM INOo Attending Dr: João Powell MD Copies to: DO Teresa Freeman DO Mohamad Akil, MD~ HPI Consult Date: 03/04/24 [employer] Consultant: Luther Dozier DO [facility] Medical History Vitamin D deficiency Spondylosis of [...] mass Atrial fibrillation 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 Moderate constipation. Impression dictated by: Sudeep Lind M.D.03/03/2024 3:01 PM Dictation Location: [place] [address] 03/03/24 16:59 IMPRESSION: No acute findings. Impression dictated by: Sudeep Lind M.D.03/03/2024 5:50 PM Dictation Location: [place] [address] Assessment/Plan (1) Syncope: Qualifiers: Syncope type: unspecified Qualified Code(s): R55 - Syncope and collapse Plan CONSULT REASON: Syncope HPI: 58-year-old man. Significant bodily vasculopathy, probably secondary to diabetes. History of coronary artery disease requiring percutaneous intervention, peripheral vascular disease, type 2 diabetes, hypertension, severediabetic polyneuropathy, nonhealing right lower extremity wounds now status postright below the knee amputation about 3 weeks ago at [facility]. He was feeling lightheaded every time he [...] signed by Luther Dozier DO> 03/04/24 1257 [facility] Work Phone: 1(322) 272-431609-30-2024 Progress note Author João Powell [facility] March 04, 2024 11:53am Note Date/Time March 04, 2024 11:46am [facility] [address] [place] [address] Hospitalist Progress Note Signed Patient: Myra Pickard SR MR#: [id number] : 1965 Acct:[id number] Age/Sex: 58 / M Adm Date: 4 Loc: 3T Room: [address] [place] [address] Type: ADM INOo Attending Dr: João Powell [...] 1,000 Ml IV 03/03/25 17:59 60 mls/hr .[id number] SATISH Administration Sodium Chloride 500 mls @ 20 mls/hr 03/04/24 09:29 0.9 % Sodium Chloride IV 03/05/24 09:28 PROTOCOL PRN BLOOD TRANSFUSION Ipratropium [place] 0.5 mg 03/04/24 09:00 03/04/24 10:47 Ipratropium [place] 0.5 Mg/2.5 Ml Vial.Neb INHALATION 03/04/25 08:59 [...] Syringe IV-PUSH 03/03/25 16:59 Not Given Q8H [facility] A&P - Hospitalist Assessment/Plan (1) Restless legs [...] neuropathy from medications and type 2 diabetes REOL on CKD in the setting of dehydration [...] signed by João Powell MD> 03/04/24 1153 [facility] Work Phone: 1(272) 159-226709-30-2024 History and physical note Author João Powell [facility] March 03, 2024 10:48pm Note Date/Time March 03, 2024 5:55pm [facility] [address] [place] [address] Hospitalist H&P Signed Patient: Myra Pickard SR MR#: [id number] : 1965 Acct:[id number] Age/Sex: 58 / M Adm Date: 4 Loc: Room: [address] [place] [address] Type: ADM INOo Attending Dr: João Powell [...] neuropathy status post right BKA recently at [facility]. 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 Anxiety [...] 12/25/23[Rx Confirmed 03/03/24] flash glucose scanning reader ([employer] Jigar 2 [place]) #1 ea 12/28/23 [Rx Confirmed 03/03/24] flash glucose sensor ([employer] Jigar 2 Sensor kit) #1 ea 12/28/23 [...] % (Auto) 18.2 % (.) 03/03/24 14:00 [place] % (Auto) 11.3 % (.) 03/03/24 14:00 Eos % (Auto) 3.2 % (.) 03/03/24 14:00 Baso % (Auto) 1.7 % (.) 03/03/24 14:00 Nucleat RBC Rel Count 0.2 /100 WBC (0-0.5) 03/03/24 14:00 Neut # (Auto) 4.7 x10E3/uL (1.8-7.7) 03/03/24 14:00 Lymph # (Auto) 1.3 x10E3/uL (1.00-4.8) 03/03/24 14:00 [place] # (Auto) 0.8 x10E3/uL (0.0-0.8) 03/03/24 14:00 [...] pH 5.0 (5.0-9.0) 03/03/24 14:35 Ur Specific [place] 1.009 (1.001-1.030) 03/03/24 14:35 Urine Protein Negative [...] <Electronically signed by João Powell MD> 03/03/24 8354 [facility] Work Phone: 1(592) 684-901409-26-2024 History of Present illness Narrative* Mike Montes [...] up Removal of toshia next week at [facility] and sizing for prosthesis.. [facility] History of Present illness Narrative* Guero Tam DO - 02/28/2024 2:51 PM EDT Patient Name: Myra Pickard Date of : 1965 Date of Service: 02/28/2024 Facility: [facility] Type of Visit: Skilled Visit Subjective [...] polyneuropathy associated with type 2 diabetes mellitus ([facility]) 4. Other abnormalities of gait and mobility 5. Muscle spasm I'm going to add baclofen 10 mg Q6hrs prn spasm. D/C januvia since he is on Trulicity. Continue therapy and other orders as directed. All medications reviewed and are medically necessary. ELECTRONICALLY SIGNED BY: Guero Tam DO documented [facility]24 History of Present illness Narrative* Guero Tam [...] and grafts Fibromyalgia Atherosclerotic heart disease of ely shoshone coronary artery without angina pectoris GERD glaucoma Gout Hyperlipidemia Essential hypertension Migraine Polyneuropathy Obstructive and reflux uropathy RLS Osteoarthritis Dorsalgia Benign prostatic hyperplasia with lower urinary tract symptoms Bilateral carpal tunnel syndrome Heart failure unspecified Nicotine dependence of cigarettes Plan: Admit to [facility] for therapies. continue medications. Full code Renew oxycodone 10 mg Q6hrs prn Good rehab potential. Discharge to home when able to safely discharge documented [facility] Hospital Discharge instructions Patient Education 02/21/2024 14:36:02 [...] to cope with stress. General instructions Take oxum-xpc-hspddyg and prescription medicines only as told by [...] department or: Call your local emergency services (311 in the [place] Call a suicide crisis helpline, such as the National Suicide Prevention Lifeline at or 988 in the [place] This is open 24 hours a day in the [place] Text the Crisis Text Line at 323220 (in the [place] Summary It will take [...] provider. Document Revised: 12/15/2021 Document Reviewed: 10/07/2021 [employer] Patient Education 2023 [employer]. Follow Up Care 02/09/2024 10:35:38 With:TERESA LYNCH DO, FAM Address: [address] [place] [id number]- When: Unknown With:Mike Montes MD Address: [address] [place] [id number]- When:2 weeks Comments:Call for followup appointment [facility] 09-18-2024 NoteDischarge Summary Admission and Discharge Information Admit Date/Time:02/12/2024 16:06 Admitting Physician - Mike Montes MD. Consulting Physician - Mike Montes MD Referring [...] With When Contact Information TERESA LYNCH DO, [address] [id number]- Additional Instructions: Simon HERRERA, Mike Weathers Within 2 weeks [address] [place] [address]- Additional Instructions: Call for followup appointment Patient Education [facility] HospitalComment on above:Result Comment: Electronically Signed By: Raulito Gilliland DO\.br\Date and Time Signed: 02/21/24 15:01 [id number] Evaluation + Plan noteExtracted from: Title:Discharge Note [...] With When Contact Information TERESA LYNCH DO, [facility] [address] [place] [address]- Additional Instructions: Simon HERRERA, [facility] Within 2 weeks [address] [place] [address]- Additional Instructions: Call for followup appointment Living With an Amputation Extracted from: Title:APSO Note Author:Raulito Gilliland DO Ankur e:02/21/24 Patient is a 58-year-old mal e with past medical history of MS/CAD, heart failure, GERD, HTN, COPD, insulin-dependent type [...] daily to aid in wound healing Ordered: [facility] Care/Day Straight Fwd 25 Minutes 58022 2. Leukocytosis (D72.829: Elevated white blood cell [...] artery disease (I25.10: Atherosclerotic heart disease of ely shosh[place] coronary artery without angina pectoris) Aspirin, atorvastatin 80 mg p.o. daily, Plavix Metoprolol, isosorbide mononitrate, Lasix 9. Tobacco abuse (Z72.0: Tobacco use) Counseled on cessation. Nicotine patch. Orders: Capillary Glucose POC CBC w/ Auto Diff Change Attending Extracted from: Title:APSO Note Author:Ben Corrigan III, DO Date:02/20/24 Patient is a 58-year-old mal e with past medical history of MS/CAD, heart failure, GERD, HTN, COPD, insulin-dependent type [...] eGFR [facility] Care/Day Moderate 35 Minutes 12015 2. Leukocytosis (D72.829: Elevated white blood cell count, unspecified) Likely reactive with nausea and vomiting overnight. Will continue to monitor closely. No signs of infection of surgical wound. Follow-up a.m. labs. 3. Essential hypertension (I10: Essential (primary) hypertension) Metoprolol, isosorbide mononitrate, Lasix. Well-controlled. Ordered: [facility] Care/Day Moderate 35 Minutes 04961 4. Hyperlipidemia (E78.5: Hyperlipidemia, unspecified) Statin Ordered: [facility] Care/Day Moderate 35 Minutes 99716 5. Anemia (D64.9: Anemia, unspecified) Acute on chronic. Stable postoperatively. Will continue to monitor closely Ordered: Basic Metabolic Panel CBC w/ Auto Diff [facility] Care/Day Moderate 35 Minutes 45892 6. 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 (E11.42: Type 2 diabetes mellitus with diabetic polyneuropathy) Glimepiride 2 mg p.o. twice daily, glargine 35 units nightly, lispro 5 units with meals, BGT ACHS, sliding scale insulin as needed with meals Poorly controlled. Increased glargine to 35 units nightly om 02/18 from 30 units nightly. Ordered: [facility] Care/Day Moderate 35 Minutes 34319 7. Stage 3 chronic kidney disease (N18.30: Chronic kidney disease, stage 3 unspecified) Creatinine 1.8. Baseline 1.5-1.6. Monitor closely. Ordered: Basic Metabolic Panel CBC w/ Auto Diff eGFR [facility] Care/Day Moderate 35 Minutes 99963 8. Coronary artery disease (I25.10: Atherosclerotic heart disease of ely shosh[place] coronary artery without angina pectoris) Aspirin, atorvastatin 80 mg p.o. daily, Plavix Metoprolol, isosorbide mononitrate, Lasix Ordered: [facility] Care/Day Moderate 35 Minutes 97155 9. Tobacco abuse (Z72.0: Tobacco use) Counseled on cessation. Nicotine patch. Orders: oxycodone, 10 mg = 2 tab(s), Tab, Oral, q4hr PRN Pain for 5 day(s), Stop date 02/25/24 19:00:00 EDT, Routine, Start date 02/20/24 19:01:00 EDT, 02/20/24 19:01:00 EDT Extracted from: Title:APSO Note Author:Shekhar JOSEPH DO Ben Martin. Date:02/19/24 Patient is a 58-year-old mal e with past medical history of MS/CAD, heart failure, GERD, HTN, COPD, insulin-dependent type [...] Basic Metabolic Panel CBC w/ Auto Diff [facility] Care/Day Moderate 35 Minutes 14103 2. Essential hypertension (I10: Essential (primary) hypertension) Metoprolol, isosorbide mononitrate, Lasix. Well-controlled. Ordered: [facility] Care/Day Moderate 35 Minutes 23012 3. Hyperlipidemia (E78.5: Hyperlipidemia, unspecified) Statin Ordered: [facility] Care/Day Moderate 35 Minutes 59297 4. Anemia (D64.9: Anemia, unspecified) Acute on chronic. Stable postoperatively. Will continue to monitor closely Ordered: CBC w/ Auto Diff [facility] Care/Day Moderate 35 Minutes 01349 5. 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 (E11.42: Type 2 diabetes mellitus with diabetic polyneuropathy) Glimepiride 2 mg p.o. twice daily, glargine 30 units nightly, lispro 5 units with meals, BGT ACHS, sliding scale insulin as needed with meals Poorly controlled. Will increase glargine to 35 units nightly. Ordered: [facility] Care/Day Moderate 35 Minutes 31442 6. Stage 3 chronic kidney disease (N18.30: Chronic kidney disease, stage 3 unspecified) Creatinine 1.7. Baseline 1.5-1.6. Monitor closely. Ordered: Basic Metabolic Panel [facility] Care/Day Moderate 35 Minutes 74978 7. Coronary artery disease (I25.10: Atherosclerotic heart disease of ely shosh[place] coronary artery without angina pectoris) Aspirin, atorvastatin [...] artery disease (I25.10: Atherosclerotic heart disease of ely shosh[place] coronary artery without angina pectoris) continue plavix [...] Pain control PT/OT discharge to rehab Ordered: [facility] Care/Day High 50 Minutes 67640 [facility] Care/Day Moderate 35 Minutes 20842 2. Essential hypertension (I10: Essential (primary) hypertension) good control continue to hold losartan continue lasix and imdur monitor BP Ordered: [facility] Care/Day High 50 Minutes 53310 [facility] Care/Day Moderate 35 Minutes 23090 3. Hyperlipidemia (E78.5: Hyperlipidemia, unspecified) continue statin Ordered: [facility] Care/Day High 50 Minutes 31719 [facility] Care/Day Moderate 35 Minutes 84073 4. Anemia (D64.9: Anemia, unspecified) Acute Blood loss anemia, possibly post surgical loss hgb has remained stable post transfusion continue to monitor CBC today Ordered: [facility] Care/Day High 50 Minutes 22347 [facility] Care/Day Moderate 35 Minutes 21857 5. 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 (E11.42: Type 2 diabetes mellitus with diabetic polyneuropathy) BGL is better controlled today compared to yesterday continue current insulin dose with sliding scale If BGl continues to be elevated during the day today, will start meal time scheduled coverage Ordered: [facility] Care/Day High 50 Minutes 19135 [facility] Care/Day Moderate 35 Minutes 96554 6. Stage 3 chronic kidney disease (N18.30: Chronic kidney disease, stage 3 unspecified) Overall renal function is stable continue to monitor Ordered: [facility] Care/Day High 50 Minutes 26322 [facility] Care/Day Moderate 35 Minutes 19735 7. Coronary artery disease (I25.10: Atherosclerotic heart disease of ely shosh[place] coronary artery without angina pectoris) On home medication/ continue plavix and statin Ordered: [facility] Care/Day High 50 Minutes 34884 [facility] Care/Day Moderate 35 Minutes 52311 8. Tobacco abuse (Z72.0: Tobacco use) nicotine patch Ordered: [facility] Care/Day High 50 Minutes 64996 [facility] Care/Day Moderate 35 Minutes 41503 Orders: acetaminophen-oxycodone, 2 tab(s), Tab, Oral, [id number], Routine, Start date 02/16/24 14:00:00 EDT heparin, [...] CBC w/ Auto Diff eGFR Path. Review [facility] Care/Day High 50 Minutes 78208 [facility]/Day High 50 Minutes 09229 2. Essential hypertension (I10: Essential (primary) hypertension) had to held lasix this morning due to low BP continue other home meds, Imdur, Ordered: Basic Metabolic Panel CBC w/ Auto Diff eGFR Path. Review [facility]/Day High 50 Minutes 41523 [facility]/Day High 50 Minutes 71165 3. Hyperlipidemia (E78.5: Hyperlipidemia, unspecified) continue statin Ordered: Basic Metabolic Panel CBC w/ Auto Diff eGFR Path. Review [facility]/Day High 50 Minutes 99779 [facility] Care/Day High 50 Minutes 49118 4. Anemia (D64.9: Anemia, unspecified) hgb is stable post transfusion at 7.6 since patient is stable, will start heparin prophylaxis Ordered: Basic Metabolic Panel CBC w/ Auto Diff eGFR Path. Review [facility]/Day High 50 Minutes 45824 [facility]/Day High 50 Minutes 45644 5. 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 Review [facility]/Day High 50 Minutes 91207 [facility]/Day High 50 Minutes 18435 6. Stage 3 chronic kidney disease (N18.30: Chronic kidney disease, stage 3 unspecified) stable continue to monitor Ordered: Basic Metabolic Panel CBC w/ Auto Diff eGFR Path. Review [facility]/Day High 50 Minutes 80859 [facility]/Day High 50 Minutes 59379 7. Coronary artery disease (I25.10: Atherosclerotic heart disease of [place] coronary artery without angina pectoris) overall stable continue plavix Ordered: Basic Metabolic Panel CBC w/ Auto Diff eGFR Path. Review [facility]/Day High 50 Minutes 27836 [facility]/Day High 50 Minutes 18237 8. Tobacco abuse (Z72.0: Tobacco use) nicotine patch Ordered: Basic Metabolic Panel CBC w/ Auto Diff eGFR Path. Review [facility]/Day High 50 Minutes 57388 [facility]/Day High 50 Minutes 19267 Orders: acetaminophen-oxycodone, 2 tab(s), Tab, Oral, [id number], Routine, Start date 02/16/24 14:00:00 EDT heparin, [...] Diff [facility]/Day High 50 Minutes 53729 2. Essential hypertension (I10: Essential (primary) hypertension) good control continue current medications Ordered: Basic Metabolic Panel CBC w/ Auto Diff [facility]/Day High 50 Minutes 77295 3. Hyperlipidemia (E78.5: Hyperlipidemia, unspecified) statin Ordered: Basic Metabolic Panel CBC w/ Auto Diff [facility]/Day High 50 Minutes 55888 4. Anemia (D64.9: Anemia, unspecified) hgb has remained stable since transfusion hgb is 7.7. i thought it should be higher than than considering that he received 2 units of PRBC. Ordered: Basic Metabolic Panel [facility] w/ [facility] 50 Minutes 01754 5. 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 (E11.42: Type 2 diabetes mellitus with diabetic polyneuropathy) BGL is poorly controlled diabetic diet increase lantus to 25 units QHS accucheck achs Ordered: Basic Metabolic Panel CBC w/ Auto Diff [facility] Care/Day High 50 Minutes 76907 6. Stage 3 chronic kidney disease (N18.30: Chronic kidney disease, stage 3 unspecified) overall stable, but noted mild increase in creatinine today contiue to monitor Ordered: Basic Metabolic Panel CBC w/ Auto Diff [facility] Care/Day High 50 Minutes 01116 7. Coronary artery disease (I25.10: Atherosclerotic heart disease of ely shosh[place] coronary artery without angina pectoris) Plavix for secondary prophylaxis Ordered: Basic Metabolic Panel CBC w/ Auto Diff [facility] Care/Day High 50 Minutes 22661 8. Tobacco abuse (Z72.0: Tobacco use) nicotine patch Ordered: Basic Metabolic Panel CBC w/ Auto Diff [facility] Care/Day High 50 Minutes 49333 Orders: insulin glargine, 25 unit(s), Injection-Insulin, SubCutaneous, [...] and Implement Plan Extracted from: Title:APSO Note Author:Marisela HERRERA, Elan lopez:02/14/24 1. 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 due to poor pain control, I discontinued IV morphine and switched to IV dilaudid PT/OT appreciate Vascular team recommendations Ordered: [facility] Care/Day High 50 Minutes 41759 2. Essential hypertension (I10: Essential (primary) hypertension) Better compared to yesterday. continue current management currently on lasix, losartan, metoprolol and imdur. seems to be too much BP meds since BP is about 120s. continue to monitor BP. Ordered: [facility] Care/Day High 50 Minutes 91011 3. Hyperlipidemia (E78.5: Hyperlipidemia, unspecified) continue statin Ordered: [facility] Care/Day High 50 Minutes 23573 4. Anemia (D64.9: Anemia, unspecified) Acute on chronic anemia due to surgical intervention hgb has remained stable since transfusion continue to monitor h and h Ordered: [facility] Care/Day High 50 Minutes 45915 5. 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 continue lantus at current dose continue Jardiance and Glimipiride Ordered: [facility] Care/Day High 50 Minutes 23976 6. Stage 3 chronic kidney disease (N18.30: Chronic kidney disease, stage 3 unspecified) possible due to complication of DM. monitor renal function. creatinine at baseline of 1.9. needs out patient follow up for Nephro recommendation 7. Coronary artery disease (I25.10: Atherosclerotic heart disease of ely shoshone coronary artery without angina pectoris) continue plavix and asa as ordered Orders: acetaminophen-oxycodone, 1 tab(s), Tab, Oral, [id number], Routine, Start date 02/13/24 13:00:00 EDT furosemide, [...] to Resource Center Extracted from: Title:APSO Note Author:Marisela HERRERA, Elan Hooker ate:02/13/24 1. 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 appreciate additional recommendation from Vascular team Ordered: [facility]/Day High 75 Minutes 78181 2. Essential hypertension (I10: Essential (primary) hypertension) BP on the low side today unsure if this is related to ?Anemia hold Losartan monitor BP, if still low, will bolus. Ordered: [facility] Care/Day High 75 Minutes 38987 3. Hyperlipidemia (E78.5: Hyperlipidemia, unspecified) statin Ordered: [facility] Care/Day High 75 Minutes 38046 4. Anemia (D64.9: Anemia, unspecified) Acute on chronic anemia. acute loss due to post op blood loss transfused 2 units of PRBC today. continue to monitor will hold asa and plavix for now and resume when Anemia improves or stabilized Also hold off on anticoagulation until anemia stabilizes can do scd on left leg Ordered: [facility] Care/Day High 75 Minutes 23836 5. 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 (E11.42: Type 2 diabetes mellitus with diabetic polyneuropathy) poorly controlled diabetic diet continue glimipiride, lantus and januvia Monitor BGL and treate with sliding scale as needed Ordered: [facility] Care/Day High 75 Minutes 99169 Orders: acetaminophen-oxycodone, 1 tab(s), Tab, Oral, [id number], Routine, Start date 02/13/24 13:00:00 EDT amitriptyline, [...] Author:Zachary morrow MD, Ahmad F Date:02/12/24 Plan [place] [employer] (ASA) physical status classification: [...] US PVR Lower EXT Complete Bilat 11/20/23 [facility] 09-18-2024 NotePeripheral smear evaluation:[facility] HospitalComment on above:Performed By: #### [id number] #### [facility] [address] [place], [place] [id number] NoteProgress Note-Physician Assessment/Plan Patient is a 58-year-old male with past medical history of MS/CAD, heart failure, GERD, HTN, COPD, insulin-dependent type [...] daily to aid in wound healing Ordered: [facility] Care/Day Straight Fwd 25 Minutes 90478 2. Leukocytosis (D72.829: Elevated white blood cell [...] artery disease (I25.10: Atherosclerotic heart disease of ely shosh[place] coronary artery withoutangina pectoris) ? Aspirin, atorvastatin [...] Lymph Auto: 12.4 % Low (02/21/24 06:02:00) [place] Auto: 8.7 % (02/21/24 06:02:00) Eos Auto: 3.6 % (02/21/24 06:02:00) Basophil Auto: 0.7 % (02/21/24 06:02:00) Neutro Absolute: 9.3 E9/L High (02/21/24 06:02:00) Lymph Absolute: 1.5 E9/L (02/21/24 06:02:00) [place] Absolute: 1.1 E9/L High (02/21/24 06:02:00) Eos [...] High (02/21/24 10:49: (more content not included)... [facility] HospitalComment on above:Result Comment: Electronically Signed By: Raulito Gilliland DO\.br\Date and Time Signed: 02/21/24 10:56 EDT 02-20-2024 NoteProgress Note-Physician Assessment/Plan Patient is a 58-year-old male with past medical history of MS/CAD, heart failure, GERD, HTN, COPD, insulin-dependent type [...] Auto Diff CBC w/ Auto Diff eGFR [facility] Care/Day Moderate 35 Minutes 50547 2. Leukocytosis (D72.829: Elevated white blood cell count, unspecified) ? Likely reactive with nausea and vomiting overnight. Will continue to monitor closely. No signs ofinfection of surgical wound. Follow-up a.m. labs. 3. Essential hypertension (I10: Essential (primary) hypertension) ? Metoprolol, isosorbide mononitrate, Lasix. Well-controlled. Ordered: [facility] Care/Day Moderate 35 Minutes 64913 4. Hyperlipidemia (E78.5: Hyperlipidemia, unspecified) ? Statin Ordered: [facility] Care/Day Moderate 35 Minutes 43866 5. Anemia (D64.9: Anemia, unspecified) ? Acute on chronic. Stable postoperatively. Will continue to monitor closely Ordered: Basic Metabolic Panel CBC w/ Auto Diff [facility] Care/Day Moderate 35 Minutes 12502 6. 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 Glimepiride 2 mg p.o. twice daily, glargine 35 units nightly, lispro 5 units with meals, BGT ACHS, sliding scale insulin as needed with meals ?Poorly controlled. Increased glargine to 35 units nightly om 02/18 from 30 units nightly. Ordered: [facility] Care/Day Moderate 35 Minutes 30288 7. Stage 3 chronic kidney disease (N18.30: Chronic kidney disease, stage 3 unspecified) ? Creatinine 1.8. Baseline 1.5-1.6. Monitor closely. Ordered: Basic Metabolic Panel CBC w/ Auto Diff eGFR [facility] Care/Day Moderate 35 Minutes 46614 8. Coronary artery disease (I25.10: Atherosclerotic heart disease of ely [place]osh[place] coronary artery withoutangina pectoris) ? Aspirin, atorvastatin 80 mg p.o. daily, Plavix ? Metoprolol, isosorbide mononitrate, Lasix Ordered: [facility] Care/Day Moderate 35 Minutes 76423 9. Tobacco abuse (Z72.0: Tobacco use) ? [...] the indicated time period. (more content not included)...[facility] HospitalComment on above:Result Comment: Electronically Signed By: Ben Corrigan III, DO.nile\Date and Time Signed: 02/20/24 19:09 [id number] NoteProgress Note-Physician Assessment/Plan Patient is a 58-year-old male with past medical history of MS/CAD, heart failure, GERD, HTN, COPD, insulin-dependent type [...] Basic Metabolic Panel CBC w/ Auto Diff [facility] Care/Day Moderate 35 Minutes 23517 2. Essential hypertension (I10: Essential (primary) hypertension) ? Metoprolol, isosorbide mononitrate, Lasix. Well-controlled. Ordered: [facility] Care/Day Moderate 35 Minutes 90181 3. Hyperlipidemia (E78.5: Hyperlipidemia, unspecified) ? Statin Ordered: [facility] Care/Day Moderate 35 Minutes 15335 4. Anemia (D64.9: Anemia, unspecified) ? Acute on chronic. Stable postoperatively. Will continue to monitor closely Ordered: CBC w/ Auto Diff [facility] Care/Day Moderate 35 Minutes 65081 5. 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 Glimepiride 2 mg p.o. twice daily, glargine 30 units nightly, lispro 5 units with meals, BGT ACHS, sliding scale insulin as needed with meals ?Poorly controlled. Will increase glargine to 35 units nightly. Ordered: [facility] Care/Day Moderate 35 Minutes 49517 6. Stage 3 chronic kidney disease (N18.30: Chronic kidney disease, stage 3 unspecified) ? Creatinine 1.7. Baseline 1.5-1.6. Monitor closely. Ordered: Basic Metabolic Panel [facility] Care/Day Moderate 35 Minutes 48862 7. Coronary artery disease (I25.10: Atherosclerotic heart disease of [place] coronary artery withoutangina pectoris) ? Aspirin, atorvastatin [...] Exam General: alert, no (more content not included)...[facility] Comment on above:Result Comment: Electronically Signed By: Ben Corrigan III, DO.nile\Date and Time Signed: 02/19/24 17:00 [id number] NoteProgress Note-Physician Patient: MATTEO CHRISTIAN, MYRA Daniel Age: 58 years Sex: Male : 1965 Associated Diagnoses: None Author: MD Solomon Ahmad F Postoperative Information Postoperative disposition: Postoperative disposition: To PACU. Optimetrix number: Optimetrix number [id number]. Anesthetic utilized: General. Health Status Allergies: Allergic [...] Discharge when meets criteria ( To home ).[facility] HospitalComment on above:Result Comment: Electronically Signed By: [...] mg oral tablet: 2 tab(s), Tab, Oral, [id number], Routine, Start date 02/16/24 14:00:00 EDT Plavix [...] cap(s), Oral, B (more content not included)... [facility] HospitalComment on above:Result Comment: Electronically Signed By: MD Juanito, Laura Rodriguez\.nile\Date and Time Signed: 02/19/24 08:33 EDT 02-18-2024 [...] artery disease (I25.10: Atherosclerotic heart disease of ely [place] coronary artery withoutangina pectoris) continue plavix as [...] mg/dL High (02/18/24 11:32:00) POC Device SN: [id number] (02/18/24 11:32:00) POC User ID: [id number] (02/18/24 11:32:00) POC Username: RAJESH OSEGUERA (02/18/24 11:32:00) Problem List/Past Medical History Ongoing Arthritis Asthma BPH with obstruction/lower urinary tract symptoms COPD type A Fibromyalgia Gross hematuria Head ache Heart attack Heart disease Heart murmur Hyperlipidemia Orchitis Restless leg Smoker Urinary retention Historical CHF (congestive heart failure) GERD [Gastroesophageal reflux disease] HTN [Hypertension] MS (myocardial infarction) NIDDM Medications Inpatient acetaminophen 325 [...] mg-325 mg oral tablet, 2 tab(s), Oral, [id number] Plavix 75 mg Tab, 75 mg= 1 tab(s), Oral, Daily polyethylene glycol 335 (more content not included)...[facility] HospitalComment on above:Result Comment: Electronically Signed By: Marisela HERRERA, Elan Humphrey.br\Date and Time Signed: 02/18/24 13:45 [id number] NoteProgress Note-Physician Assessment/Plan Goal: 1. Aggressive bowel regimen as ordered 2. Monitor hgb 3. Monitor BGL, better controlled but still elevated. DVT prophylaxis with heparin if tolerated. 1. Hx of right BKA (Z89.511: Acquired absence of right leg below knee) Pain control PT/OT discharge to rehab Ordered: [facility] Care/Day High 50 Minutes 10225 [facility] Care/Day Moderate 35 Minutes 55560 2. Essential hypertension (I10: Essential (primary) hypertension) good control continue to hold losartan continue lasix and imdur monitor BP Ordered: [facility] Care/Day High 50 Minutes 77814 [facility] Care/Day Moderate 35 Minutes 86882 3. Hyperlipidemia (E78.5: Hyperlipidemia, unspecified) continue statin Ordered: [facility] Care/Day High 50 Minutes 33636 [facility] Care/Day Moderate 35 Minutes 15269 4. Anemia (D64.9: Anemia, unspecified) Acute Blood loss anemia, possibly post surgical loss hgb has remained stable post transfusion continue to monitor CBC today Ordered: [facility] Care/Day High 50 Minutes [id number] [facility] Care/Day Moderate 35 Minutes 84740 5. 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 (E11.42: Type 2 diabetes mellitus with diabetic polyneuropathy) BGL is better controlled today compared to yesterday continue current insulin dose with sliding scale If BGl continues to be elevated during the day today, will start meal time scheduled coverage Ordered: [facility] Care/Day High 50 Minutes 42398 [facility] Care/Day Moderate 35 Minutes 29652 6. Stage 3 chronic kidney disease (N18.30: Chronic kidney disease, stage 3 unspecified) Overall renal function is stable continue to monitor Ordered: [facility] Care/Day High 50 Minutes 15470 [facility] Care/Day Moderate 35 Minutes 93408 7. Coronary artery disease (I25.10: Atherosclerotic heart disease of ely shoshone coronary artery withoutangina pectoris) On home medication/ continue plavix and statin Ordered: [facility] Care/Day High 50 Minutes 22089 [facility] Care/Day Moderate 35 Minutes 92068 8. Tobacco abuse (Z72.0: Tobacco use) nicotine patch Ordered: [facility] Care/Day High 50 Minutes 27888 [facility] Care/Day Moderate 35 Minutes 52386 Orders: acetaminophen-oxycodone, 2 tab(s), Tab, Oral, [id number], Routine, Start date 02/16/24 14:00:00 EDT heparin, [...] (02/17/24 07:49:00) POC Dev (more content not included)...[facility] HospitalComment on above:Result Comment: Electronically Signed By: Marisela HERRERA, Elan Robbins\.br\Date and Time Signed: 02/17/24 10:36 [id number] NoteProgress Note-Physician Assessment/Plan Goals: 1. 2 time [...] CBC w/ Auto Diff eGFR Path. Review [facility] Care/Day High 50 Minutes 85469 [facility] Care/Day High 50 Minutes 61822 2. Essential hypertension (I10: Essential (primary) hypertension) had to held lasix this morning due to low BP continue other home meds, Imdur, Ordered: Basic Metabolic Panel CBC w/ Auto Diff eGFR Path. [facility] High 50 Minutes 64102 [facility] Care/Day High 50 Minutes 09513 3. Hyperlipidemia (E78.5: Hyperlipidemia, unspecified) continue statin Ordered: Basic Metabolic Panel CBC w/ Auto Diff eGFR Path. [facility] Care/Day High 50 Minutes 14109 [facility] Care/Day High 50 Minutes 02949 4. Anemia (D64.9: Anemia, unspecified) hgb is stable post transfusion at 7.6 since patient is stable, will start heparin prophylaxis Ordered: Basic Metabolic Panel CBC w/ Auto Diff eGFR Path. [facility] Care[facility]Day High 50 Minutes 44751 [facility] Care/Day High 50 Minutes 07250 5. 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 Review [facility] Care/Day High 50 Minutes 97532 [facility] Care/Day High 50 Minutes 44715 6. Stage 3 chronic kidney disease (N18.30: Chronic kidney disease, stage 3 unspecified) stable continue to monitor Ordered: Basic Metabolic Panel CBC w/ Auto Diff eGFR Path. [facility]Day High 50 Minutes 46810 [facility] Care/Day High 50 Minutes 22218 7. Coronary artery disease (I25.10: Atherosclerotic heart disease of ely shoshone coronary artery withoutangina pectoris) overall stable continue plavix Ordered: Basic Metabolic Panel CBC w/ Auto Diff eGFR Path. Review [facility] Care/Day High 50 Minutes 61991 [facility] Care/Day High 50 Minutes 90631 8. Tobacco abuse (Z72.0: Tobacco use) nicotine patch Ordered: Basic Metabolic Panel CBC w/ Auto Diff eGFR Path. [facility]Day High 50 Minutes 44037 [facility] Care/Day High 50 Minutes 64839 Orders: acetaminophen-oxycodone, 2 tab(s), Tab, Oral, [id number], Routine, Start date 02/16/24 14:00:00 EDT heparin, [...] no adenopathy, no tenderness (more content not included)...[facility] HospitalComment on above:Result Comment: Electronically Signed By: Marisela HERRERA, Elan Guzman\Date and Time Signed: 02/16/24 13:30 [id number] NotePath ReviewPeripheral smear evaluation: - Moderate microcytic and hypochromic anemia with anisopoikilocytosis. - White blood cell and Platelet: Unremarkable. Comment: Recommend clinical correlation and rule out iron deficiency anemia. CPT: 27922 Blair Blood MD 02/21/2024 12:59:29 EDT *NA* (02/16/24 6:12 AM)[facility] Danielle 09-12-2024 NoteProgress Note-Physician Assessment/Plan Goal: 1. [...] Diff [facility] Care/Day High 50 Minutes 38637 2. Essential hypertension (I10: Essential (primary) hypertension) good control continue current medications Ordered: Basic Metabolic Panel CBC w/ Auto Diff [facility] Care/Day High 50 Minutes 48360 3. Hyperlipidemia (E78.5: Hyperlipidemia, unspecified) statin Ordered: Basic Metabolic Panel CBC w/ Auto Diff [facility] Care/Day High 50 Minutes 32216 4. Anemia (D64.9: Anemia, unspecified) hgb has remained stable since transfusion hgb is 7.7. i thought it should be higher than than considering that he received 2 units of PRBC. Ordered: Basic Metabolic Panel CBC w/ Auto Diff [facility] Care/Day High 50 Minutes 28849 5. 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 (E11.42: Type 2 diabetes mellitus with diabetic polyneuropathy) BGL is poorly controlled diabetic diet increase lantus to 25 units QHS accucheck achs Ordered: Basic Metabolic Panel CBC w/ Auto Diff [facility] Care/Day High 50 Minutes 78691 6. Stage 3 chronic kidney disease (N18.30: Chronic kidney disease, stage 3 unspecified) overall stable, but noted mild increase in creatinine today contiue to monitor Ordered: Basic Metabolic Panel CBC w/ Auto Diff [facility] Care/Day High 50 Minutes 50806 7. Coronary artery disease (I25.10: Atherosclerotic heart disease of ely shosh[place] coronary artery withoutangina pectoris) Plavix for secondary prophylaxis Ordered: Basic Metabolic Panel CBC w/ Auto Diff [facility] Care/Day High 50 Minutes 32757 8. Tobacco abuse (Z72.0: Tobacco use) nicotine patch Ordered: Basic Metabolic Panel CBC w/ Auto Diff [facility] High 50 Minutes 41792 Orders: insulin glargine, 25 unit(s), Injection-Insulin, SubCutaneous, [...] Hct: 22.2 % Low (more content not included)...[facility] HospitalComment on above:Result Comment: Electronically Signed By: Marisela HERRERA, Elan Guzman\Date and Time Signed: 02/15/24 13:28 [id number] NoteInterdisciplinary Note - PT PT Evaluation completed with an [facility] score of 16/24. Pt was able to perform bed mobility with Mod I and transfers with CGA/Min A. Pt was able to ambulate 4 feet with FWW, but does fatigue easily. Ptdoes report increased pain in right stump, but still maintained activity well. Pt will need furtherrehabilitation SNF in order to return home again safely[facility]09-11-2024 NoteProgress Note-Physician Assessment/Plan 1. 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 due to poor pain control, I discontinued IV morphine and switched to IV dilaudid PT/OT appreciate Vascular team recommendations Ordered: [facility] Care/Day High 50 Minutes 66276 2. Essential hypertension (I10: Essential (primary) hypertension) Better compared to yesterday. continue current management currently on lasix, losartan, metoprolol and imdur. seems to be too much BP meds since BP is about 120s. continue to monitor BP. Ordered: [facility] Care/Day High 50 Minutes 42284 3. Hyperlipidemia (E78.5: Hyperlipidemia, unspecified) continue statin Ordered: [facility] Care/Day High 50 Minutes 01647 4. Anemia (D64.9: Anemia, unspecified) Acute on chronic anemia due to surgical intervention hgb has remained stable since transfusion continue to monitor h and h Ordered: [facility] Care/Day High 50 Minutes 94633 5. 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 continue lantus at current dose continue Jardiance and Glimipiride Ordered: [facility] Care/Day High 50 Minutes 48921 6. Stage 3 chronic kidney disease (N18.30: Chronic kidney disease, stage 3 unspecified) possible due to complication of DM. monitor renal function. creatinine at baseline of 1.9. needs out patient follow up for Nephro recommendation 7. Coronary artery disease (I25.10: Atherosclerotic heart disease of [place] shosh[place] coronary artery withoutangina pectoris) continue plavix and asa as ordered Orders: acetaminophen-oxycodone, 1 tab(s), Tab, Oral, [id number], Routine, Start date 02/13/24 13:00:00 EDT furosemide, [...] Extremities: right BKA Debbie (more content not included)...[facility] HospitalComment on above: Result Comment: Electronically Signed By: Marisela HERRERA, Elan Robbins\.br\Date and Time Signed: 02/14/24 09:57 [id number] NoteProgress Note-Physician Assessment/Plan 1. 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 appreciate additional recommendation from Vascular team Ordered: [facility] Care/Day High 75 Minutes 18166 2. Essential hypertension (I10: Essential (primary) hypertension) BP on the low side today unsure if this is related to ?Anemia hold Losartan monitor BP, if still low, will bolus. Ordered: [facility] Care/Day High 75 Minutes 37945 3. Hyperlipidemia (E78.5: Hyperlipidemia, unspecified) statin Ordered: [facility] Care/Day High 75 Minutes 07956 4. Anemia (D64.9: Anemia, unspecified) Acute on chronic anemia. acute loss due to post op blood loss transfused 2 units of PRBC today. continue to monitor will hold asa and plavix for now and resume when Anemia improves or stabilized Also hold off on anticoagulation until anemia stabilizes can do scd on left leg Ordered: [facility] Care/Day High 75 Minutes 32770 5. 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 (E11.42: Type 2 diabetes mellitus with diabetic polyneuropathy) poorly controlled diabetic diet continue glimipiride, lantus and januvia Monitor BGL and treate with sliding scale as needed Ordered: [facility] Care/Day High 75 Minutes 45201 Orders: acetaminophen-oxycodone, 1 tab(s), Tab, Oral, [id number], Routine, Start date 02/13/24 13:00:00 EDT amitriptyline, [...] He is now interested in going to [facility] to get PT to enable him [...] Back: No tenderness, Luzmaria (more content not included)...[facility] HospitalComment on above:Result Comment: Electronically Signed By: Marisela HERRERA, Elan Humphrey.br\Date and Time Signed: 02/13/24 12:25 [id number] NoteHistory and Physical History of Present Illness [...] mg/dL High (02/12/24 17:15:00) POC Device SN: [id number] (02/12/24 17:15:00) POC User ID: [id number] (02/12/24 17:15:00) POC Username: POC Username (02/12/24 [...] a day (at bedti (more content not included)...[facility] HospitalComment on above:Result Comment: Electronically Signed By: Marisela HERRERA, Elan Humphrey.br\Date and Time Signed: 02/12/24 18:34 [id number] Evaluation + Plan note* Assessment & Plan Note - Mike Montes MD - 01/18/2024 9:04 AM EDTAssociated Problem(s): Cigarette smoker Counseled him on smoking cessation at length. He is willing to quit. [facility]08-15-2024 Miscellaneous Notes* Assessment & Plan Note - Mike Montes MD - 01/18/2024 9:04 AM EDTAssociated Problem(s): Cigarette smoker Counseled him on smoking cessation at length. He is willing to quit. 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 Will do it here at [facility]. 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 Will do it here at [facility]. [facility]-20[facility] History of Present illness Narrative* Mike Montes [...] control exposed bone. 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 We [...] 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 ([facility]) Diabetes mellitus type 2, controlled ([facility] GERD (gastroesophageal reflux disease) Hyperlipidemia Hypertension Past Surgical History: Past Surgical History: Procedure Laterality Date AMPUTATION FOOT / TOE Right 09/29/2023 APPENDECTOMY BYPASS ARTERY FEMORAL POPLITEAL Right 11/08/2023 Performed by Mike Montes MD at [facility] SPECIAL PROC CARDIAC CATHETERIZATION x4 heart stents COLONOSCOPY PROSTATE SURGERY SPINE SURGERY Vascular Invasive Right lower extremity angiogram with intervention/stent Right 11/07/2023 Performed by Mike Montes MD at [facility] CARDIAC CATH LABS Social and Family [...] below-knee amputation. Will do it here at [facility]. Myra was seen today for angioplasty rle follow up - procedure at [facility]. yolanda and critical limb ischemia of right lower extremity with gangre. 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 While intending to generate a timely document that accurately reflects the content of the visit, no guarantee can be provided that every grammatical or spelling mistake has been or will be identified or corrected. Thank you for your understanding. documented in this encounterKindred Hospital [facility]08-15-2024 Instructions* Patient Instructions* Mike Montes MD - 01/18/2024 8:50 AM EDT Are You Ready To Kick The Habit? Free Tobacco Cessation Resources [facility] Services [facility] Centers provide all employees with free tobacco cessation services that include: Counseling to understand nicotine addiction Education about medications that can help you successfully quit Assistance with developing a plan to quit Call to set up an individual appointment or find out when group classes will be held: [facility]: [phone] [facility]: [phone] [facility]: [phone] : [phone] Quit Smoking Action Plan and Resources [facility] offers an eight-week, online smoking cessation plan to all [facility] employees, regardless of whether [place] is your medical insurance provider. Go to [email or web address] and click the Health Risk Assessment and Resources link to get started. In the Gushs5Exicgw menu, click Action Plans instead of Health Risk Assessment to access the Quit Smoking Action Plan. Additional smoking cessation resources are also available to all [facility] employees on the Sdrns9Zzmtlz web page at www.BetterLesson.Inline.me/quitsmoking. [place] Tobacco Cessation Program If [place] is your medical insurance provider, there are more free resources available to you, including: No copays or deductibles on local tobacco cessation counseling services to help you quit Prescription assistance for tobacco cessation medications to help you quit For details about the tobacco cessation program available to [place] members, go to www.[employer] (Search: Tobacco Cessation Program). [place] Tobacco Quit Line 6-673-XGMZ-NOW ( ) is a toll-free, telephonic service that helps [place] residents quit smoking and using tobacco. It is staffed by experts who tailor a quit plan for you and provide you with advice. [place] Tobacco Quit Line 9-892-NUJL-NOW ( ) is a toll-free, telephonic service that helps [place] residents quit smoking and using tobacco. It is staffed by experts who tailor a quit plan for you and provide you with advice. Two weeks of nicotine replacement therapy may be provided at no charge, if needed. Additional Resources These national organizations also offer free information and resources to help you quit tobacco: [place] [employer]--www.cancer.org/healthy/stayawayfromtobacco [place] [employer]--www.heart.org (Search: Quit Smoking) Centers for Disease Control and Prevention--www.cdc.gov/tobacco [place] [employer]--www.lungusa.org documented in this encounterRutland Regional Medical CenterAdapt Technologies [id number] NotePatient Education - Text [place], [place] Cardiovascular PCI DISCHARGE INSTRUCTIONS Diet: ? [...] for any reason without talking to your llama farmer Site Care: ? Do not remove dressing [...] you are interested in smoking cessation, contact [facility] at [phone], ext. [phone]. ? In the event you are unable to reach your physician, please call [facility] at [phone] andthe shipping and receiving operator will assist you. Seek Medicare Care [...] your urine or stool ? 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 He has some residual tibial occlusive disease. I discussed with him doing right lower extremity angiogram and intervention. Will do this close to home at [facility]. 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 He has some residual tibial occlusive disease. I discussed with him doing right lower extremity angiogram and intervention. Will do this close to home at [facility]. documented in this encounterKindred Hospital [facility]ima07-18-2024 History of Present illness Narrative* Mike Montes [...] mg total) by mouth in the morning. Blink MessengerTOUCH DELICA PLUS LANCET 33 gauge misc Inject 1 strip under the skin in the morning and 1 strip before bedtime. Blink MessengerTOUCH ULTRA TEST strip 1 strip by other route every morning before breakfast. Blink MessengerTOUCH ULTRA2 METER misc 1 Unit by subconjunctival [...] 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 (CMS-HCC) Diabetes mellitus type 2, controlled ([facility]) GERD (gastroesophageal reflux disease) Hyperlipidemia Hypertension Past Surgical History: Past Surgical History: Procedure Laterality Date AMPUTATION FOOT / TOE Right 09/29/2023 APPENDECTOMY BYPASS ARTERY FEMORAL POPLITEAL Right 11/08/2023 Performed by Mike Montes MD at [facility] SPECIAL PROC CARDIAC CATHETERIZATION x4 heart stents COLONOSCOPY PROSTATE SURGERY SPINE SURGERY Vascular Invasive Right lower extremity angiogram with intervention/stent Right 11/07/2023 Performed by Mike Montes MD at [facility] CARDIAC CATH LABS Social and Family [...] 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 ([facility]) - Primary Current Assessment & Plan We did iliofemoral endarterectomy and femoral above-knee bypass. He has some residual tibial occlusive disease. I discussed with him doing right lower extremity angiogram and intervention. Will do this close to home at [facility]. 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 While intending to generate a timely document that accurately reflects the content of the visit, no guarantee can be provided that every grammatical or spelling mistake has been or will be identified or corrected. Thank you for your understanding. documented in this encounterKindred Hospital [facility]ima06-27-2024 History of Present illness Narrative* Guero Tam, DO - 11/30/2023 11:10 PM EDT Patient Name: Myra Pickard Date of : 1965 Date of Service: 11/30/2023 Facility: [facility] Type of Visit: Skilled Visit Subjective [...] Exam Vitals reviewed. Exam conducted with a gift packer present (). Constitutional: General: He is not [...] BY: Guero Tam DO documented in this encounterKindred Hospital [facility]06-27-2024 Evaluation + Plan note* Assessment & Plan Note - Mike Montes MD - 11/30/2023 9:19 AM EDT Associated Problem(s): Cigarette smoker motivated to quit Counseled on smoking cessation for at least 3 minutes [facility]06-27-2024 Miscellaneous Notes* Assessment & Plan Note - Mike Montes MD - 11/30/2023 9:19 AM EDTAssociated Problem(s): Cigarette smoker motivated to quit Counseled on smoking cessation for at least 3 minutes documented in this encounterKindred Hospital [facility]ima06-27-2024 History of Present illness Narrative* Mike Montes [...] 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 ([facility]) Cigarette smoker motivated to quit Plan Plan [...] Mike Montes MD, BG documented in this encounterProMedica Health [id number] Instructions* Patient Instructions* Mike Montes MD - 11/30/2023 8:50 AM EDT Are You Ready To Kick The Habit? Free Tobacco Cessation Resources [facility] Services [facility] Tobacco Treatment [facility] provide all employees with free tobacco cessation services that include: Counseling to understand nicotine addiction Education about medications that can help you successfully quit Assistance with developing a plan to quit Call to set up an individual appointment or find out when group classes will be held: [facility]: [phone] [facility]: [phone] [facility]: [phone] : [phone] Quit Smoking Action Plan and Resources [facility] offers an eight-week, online smoking cessation plan to all [facility] employees, regardless of whether [place] is your medical insurance provider. Go to www.Theatro.[email or web address]/employeewellness and click the Health Risk Assessment and Resources link to get started. In the Velocify menu, click Action Plans instead of Health Risk Assessment to access the Quit Smoking Action Plan. Additional smoking cessation resources are also available to all [facility] employees on the [employer] web page at www.[employer]/quitsmoking. [place] Tobacco Cessation Program If [place] is your medical insurance provider, there are more free resources available to you, including: No copays or deductibles on local tobacco cessation counseling services to help you quit Prescription assistance for tobacco cessation medications to help you quit For details about the tobacco cessation program available to [place] members, go to www.BetterLesson.Inline.me (Search: Tobacco Cessation Program). [place] Tobacco Quit Line 9-000-PQBC-NOW ( ) is a toll-free, telephonic service that helps [place] residents quit smoking and using tobacco. It is staffed by experts who tailor a quit plan for you and provide you with advice. [place] Tobacco Quit Line 1-809-AYZU-NOW ( ) is a toll-free, telephonic service that helps [place] residents quit smoking and using tobacco. It is staffed by experts who tailor a quit plan for you and provide you with advice. Two weeks of nicotine replacement therapy may be provided at no charge, if needed. Additional Resources These national organizations also offer free information and resources to help you quit tobacco: [place] [employer]--www.cancer.org/healthy/stayawayfromtobacco [place] Heart Association--www.heart.org (Search: Quit Smoking) Centers for Disease Control and Prevention--www.cdc.gov/tobacco [place] Lung Association--www.lungusa.org documented in this encounterRutland Regional Medical CenterAdapt Technologies [id number] History of Present illness Narrative* Guero Tam DO - 11/24/2023 6:57 PM EDT Patient Name: Myra Pickard Date of : 1965 Date of Service: 11/24/2023 Facility: [facility] Type of Visit: Skilled Visit Subjective Myra Pickard is a 58 y.o. male seen today at [facility] facility for therapy visit. Myra is in therapy. He is hoping to be allowed to wt bear on his right foot. His called the high school business teacher to ask to be allowed to wt [...] Exam Vitals reviewed. Exam conducted with a gift packer present (). Constitutional: General: He is not [...] Status post partial amputation of right foot ([facility]) 2. Other abnormalities of gait and mobility 3. Leg edema 4. Primary hypertension 5. Hypotension due to drugs 6. 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 Diabetic neuropathy His leg edema is [...] DO documented in this encounterRutland Regional Medical CenterGroom Energy Solutions06-17-2024 Evaluation + Plan note Future Scheduled Tests Radiology* US PVR Lower EXT Complete Bilat 11/20/23 [facility] 06-07-2024 Miscellaneous Notes* Telephone Encounter - Ashley Colon - 11/10/2023 10:05 AM EDT LMVM for patient's to call back with her Date of so I can update his billing info. documented in this encounterKindred Hospital [facility]ima06-07-[facility]24 Telephone encounter Note* Telephone Encounter - Ashley Colon - 11/10/2023 10:05 AM EDT LMVM for patient's to call back with her Date of so I can update his billing info. [facility] History of Present illness Narrative* Guero Tam DO - 11/07/2023 11:59 PM EDT Patient Name: Myra Pickard Date of : 1965 Date of Service: 11/07/2023 Facility: [facility] Type of Visit: Skilled Visit Subjective [...] Assessment / Plan 1. Peripheral arterial disease ([facility]) 2. Delayed surgical wound healing of foot amputation stump ([facility]) 3. Other abnormalities of gait and mobility 4. Status post partial amputation of right foot ([facility]) 5. Pressure ulcer of right ankle, stage 3 ([facility]) 6. Type 2 diabetes mellitus with stage 4 chronic kidney disease, without long- term current use of insulin ([facility]) I checked his medications and he is on Trulicity so he doesn't need Januvia. F/U with vascular surgeon. May need further intervention in leg. Continue therapy to reach MMI. All medications reviewed and are medically necessary. ELECTRONICALLY SIGNED BY: Guero Tam DO documented in this encounterKindred Hospital Lima05-31-2024 History of Present illness Narrative* Guero Tam DO - 11/03/2023 11:59 PM EDT Patient Name: Myra Pickard Date of : 1965 Date of Service: 11/03/2023 Facility: [facility] Type of Visit: Skilled Visit Subjective [...] Exam Vitals reviewed. Exam conducted with a gift packer present (). Constitutional: General: He is not [...] Status post partial amputation of right foot ([facility]) 2. Pressure ulcer of right ankle, stage 3 (CMS-HCC) 3. Other abnormalities of gait and mobility 4. Delayed surgical wound healing of foot amputation stump (CMS-HCC) Await results of CT angiogram. May need vascular intervention. Continue therapy to reach maximum improvement. Continue other orders as directed. ELECTRONICALLY SIGNED BY: Guero Tam DO documented in this encounterOhioHealth Grant Medical CenterDealBase Corporation [facility] Women'S [id number] History of Present illness Narrative* Guero Tam DO - 10/25/2023 11:59 PM EDT Patient Name: Myra Pickard Date of : 1965 Date of Service: 10/25/2023 Facility: [facility] Type of Visit: Skilled Visit Subjective [...] Exam Vitals reviewed. Exam conducted with a gift packer present (Lefty Rosas [facility] Constitutional: [...] Status post partial amputation of right foot ([facility]) 2. Osteomyelitis of right foot, unspecified type ([facility]) 3. Muscle weakness (generalized) 4. Other abnormalities of gait and mobility 5. Chronic obstructive pulmonary disease, unspecified COPD type ([facility]) 6. Peripheral arterial disease I'll review medication [...] BY: Guero Tam DO documented in this encounterOhioHealth Grant Medical CenterLottay05-21-2024 NoteSinus tachycardia Rightward axis Poor anterior R wave progression QTc 481 [id number] History of Present illness Narrative* Raulito Inman [...] Attestation By signing my name below, I, Rosemary CAPPS Scribe attest that this documentation has been [...] exam, discussion and plan. documented in this encounterPremier Health [facility] Work Phone: [phone]) 491-166005-21-2024 Instructions* Patient Instructions* Rosemary Benavides LPN - [...] from a cardiac standpoint documented in this encounterPremier Health Miami [facility] North Work Phone: [phone]) 547-299605-15-2024 Miscellaneous Notes* Telephone Encounter - Cameron Mg LPN - 10/18/2023 9:30 AM EDT Physician requested stat testing, patient unable to complete testing in [facility]> Spoke to Dr. Montes, states patient can have testing and f/u at [facility]. [place] staff aware. Faxed orders to [place] office at [phone].Patient unable to complete testing at times that were offered, requested a Monday or Monday. documented in this encounterKindred Hospital Lima05-15-2024 Telephone encounter Note* Telephone Encounter - Cameron Mg LPN - 10/18/2023 9:30 AM EDT Physician requested stat testing, patient unable to complete testing in [facility]> Spoke to Dr. Montes, states patient can have testing and f/u at [facility]. [place] office staff aware. Faxed orders to [facility] at [phone].Patient unable to complete testing at times that were offered, requested a Monday or Monday. [facility] Evaluation + Plan note* Assessment & Plan Note - Mike Montes MD - 10/18/2023 8:52 AM EDTAssociated Problem(s): Heavy tobacco smoker >10 cigarettes per day Counseled in length willing to quit. 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 I looked at a stress test andbasic [...] gangrene (CMS-HCC) Poor circulation - [facility] [place] [place] Heavy tobacco smoker >10 cigarettes per [...] you for your understanding. documented in this encounterKindred Hospital Lima05-15-2024 Instructions* Patient Instructions* Mike Montes MD - 10/18/2023 8:30 AM EDT Are You Ready To Kick The Habit? Free Tobacco Cessation Resources [facility] Services [facility] Centers provide all employees with free tobacco cessation services that include: Counseling to understand nicotine addiction Education about medications that can help you successfully quit Assistance with developing a plan to quit Call to set up an individual appointment or find out when group classes will be held: [facility]: [phone] [facility]: [phone] [facility]: [phone] : [phone] Quit Smoking Action Plan and Resources [facility] offers an eight-week, online smoking cessation plan to all [facility] employees, regardless of whether [place] is your medical insurance provider. Go to [email or web address].org/employeewellness and click the Health Risk Assessment and Resources link to get started. In the Agcud2Dbprir menu, click Action Plans instead of Health Risk Assessment to access the Quit Smoking Action Plan. Additional smoking cessation resources are also available to all [facility] employees on the Aaklc[employer]Asjman web page at www.[employer] Services/quitsmoking. [place] Tobacco Cessation Program If [place] is your medical insurance provider, there are more free resources available to you, including: No copays or deductibles on local tobacco cessation counseling services to help you quit Prescription assistance for tobacco cessation medications to help you quit For details about the tobacco cessation program available to [place] members, go to www.BetterLesson.Inline.me (Search: Tobacco Cessation Program). [place] Tobacco Quit Line 7-439-VCSZ-NOW ( ) is a toll-free, telephonic service that helps [place] residents quit smoking and using tobacco. It is staffed by experts who tailor a quit plan for you and provide you with advice. [place] Tobacco Quit Line 9-509-RYCU-NOW ( ) is a toll-free, telephonic service that helps [place] residents quit smoking and using tobacco. It is staffed by experts who tailor a quit plan for you and provide you with advice. Two weeks of nicotine replacement therapy may be provided at no charge, if needed. Additional Resources These national organizations also offer free information and resources to help you quit tobacco: [place] Cancer [employer]--www.cancer.org/healthy/stayawayfromtobacco [place] Heart Association--www.heart.org (Search: Quit Smoking) Centers for Disease Control and Prevention--www.cdc.gov/tobacco [place] Lung Association--www.lungusa.org documented in this encounterKindred Hospital Lima05-15-2024 Note* Addendum Note - Mike Montes MD - 10/18/2023 8:30 AM EDTAddended by: MIKE MONTES on: 10/18/2023 09:00 AM Modules accepted: Orders [facility]05-14-[facility] History of Present illness Narrative* Guero Tam DO - 10/17/2023 11:59 PM EDT Patient Name: Myra Pickard Date of : 1965 Date of Service: 10/17/2023 Facility: [facility] Type of Visit: Skilled Visit Subjective Myra Pickard is a 58 y.o. male seen today at [facility] facility for therapy visit. Myra has been [...] 97% Physical Exam Exam conducted with a gift packer present (Lefty CORREAII). Constitutional: General: He is [...] Status post partial amputation of right foot ([facility]) 2. 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 Type 2 diabetes mellitus with stage 4 chronic kidney disease, without long- term current use of insulin ([facility]) I'm going to add duloxetine 60 mg daily for diabetic neuropathy. Continue therapy. All medications reviewed and are medically necessary. F/U with specialists as directed. ELECTRONICALLY SIGNED BY: Guero Tam DO documented in this encounterKindred Hospital Lima05-07-2024 History of Present illness Narrative* Guero Tam, DO - 10/10/2023 11:33 PM EDT Patient Name: Myra Pickard Date of : 1965 Date of Service: 10/10/2023 Facility: [facility] Type of Visit: Skilled Visit Subjective [...] osteomyelitis. He has an appointment with the high school business teacher on Monday. He said his colonoscopy was [...] 98% Physical Exam Exam conducted with a gift packer present (Lefty Rosas MSIII). Constitutional: General: He [...] 2. Other acute osteomyelitis of right foot ([facility]) 3. Status post partial amputation of right foot ([facility]) 4. Chronic obstructive pulmonary disease, unspecified COPD type ([facility]) 5. Abscess of right foot Will try immodium 2mg 2 po Q6 hrs prn for diarrhea. May need to check for C. dif Continue therapy. F/U with high school business teacher on Monday. All medications reviewed and are medically necessary. May need to adjust diabetic medications in future. ELECTRONICALLY SIGNED BY: Guero Tam DO documented in this encounterOhioHealth Grant Medical CenterDealBase Corporation Hutzel Women'S [id number] History of Present illness Narrative* Guero aTm DO - 10/06/2023 4:49 PM EDT Patient Name: Myra Pickard Date of : 1965 Date of Service: 10/06/2023 Facility: [facility] Type of Visit: Admission H&P Subjective Myra Pickard is a 58 y.o. male seen today at [facility] facility for admission H&P. Myra presents to [facility] for therapies following hospitalization for sepsis [...] 96% Physical Exam Exam conducted with a gift packer present ( present). Constitutional: General: He is [...] Status post partial amputation of right foot ([facility]) 3. Type 2 diabetes mellitus with stage 4 chronic kidney disease, without long- term current use of insulin ([facility]) 4. Atherosclerosis of [place] coronary artery of [place] heart without angina pectoris 5. Bacterial sepsis ([facility]) 6. Other acute osteomyelitis of right foot ([facility]) 7. Chronic obstructive pulmonary disease, unspecified COPD type ([facility]) 8. Cigarette smoker 9. BPH with obstruction/lower urinary tract symptoms 10. Gastroesophageal reflux disease, unspecified whether esophagitis present 11. Restless leg syndrome 12. Hyperlipidemia, unspecified hyperlipidemia type 13. Carpal tunnel syndrome, unspecified laterality 14. Heart failure, unspecified HF chronicity, unspecified heart failure type ([facility]) Admit to [facility] for therapies. Full code. Continue medications from hospital. F/U with specialists as directed. Good rehab potential. Planning on discharge to home when able. ELECTRONICALLY SIGNED BY: Guero Tam DO documented in this encounterRutland Regional Medical CenterGroom Energy Solutions02-08-2024 Hospital Discharge instructions Follow Up Care 07/13/2023 12:04:02 With:SOLEDAD HERRERA, Yeyo Blum URL Address: [address] [place], [place] [id number]- When: Unknown [facility] 01-22-2024 Evaluation note* Encounter Date Diagnosis Assessment Notes Treatment Notes Treatment Clinical Notes Jun, Hyperlipidemia (ICD-10 - E78.5) [facility] Other 12-29-2023 Hospital Discharge instructions Patient Education [...] urethra. Follow these instructions at home: Take xtec-rcf-yxdpvjh and prescription medicines only as told by [...] provider. Document Revised: 12/08/2021 Document Reviewed: 12/08/2021 [employer] Patient Education 2022 [employer] Follow Up Care 06/01/2023 14:05:36 With:SOLEDAD HERRERA, Yeyo Blum, URL Address: [address] [place] [id number]- When: Unknown [facility] [place] 12-12-2023 Evaluation note* Encounter Date Diagnosis Assessment Notes Treatment Notes Treatment Clinical Notes May, 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) [facility] Other 11-24-2023 Evaluation note* Encounter Date Diagnosis Assessment Notes Treatment Notes Treatment Clinical Notes Apr, Diabetic nephropathy (ICD-10 - E11.21) [facility] Other 11-07-2023 Evaluation note* Encounter Date Diagnosis Assessment Notes Treatment Notes Treatment Clinical Notes Apr, Left arm pain (ICD-10 - M79.602) [facility] Other 11-02-2023 Evaluation note* Encounter Date Diagnosis [...] and to have his surgery as scheduled. 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 He was found to have [...] to continue to montior this at home. [facility] [employer] Other 10-09-2023 Note [id number] 02-14-2023 Hospital Discharge instructions Patient Education 02/14/2023 [...] including vitamins, herbs, eye drops, creams, and vgfe-dgj-vazlllk medicines. Any problems you or family members [...] provider tells you to take them. Taking hbrv-csj-bbrimpt medicines, vitamins, herbs, and supplements. Surgery safety [...] provider. Document Revised: 02/15/2022 Document Reviewed: 02/15/2022 [employer] Patient Education 2022 [facility] Discharge instructions Patient Education 01/30/2023 [...] including vitamins, herbs, eye drops, creams, and grvw-yia-aqurhfh medicines. ?Whether you are or may be [...] provider. Document Revised: 02/02/2022 Document Reviewed: 12/25/2020 [employer] Patient Education 2022 [employer] 01/30/2023 11:22:30 Cystoscopy Cystoscopy Cystoscopy is [...] including vitamins, herbs, eye drops, creams, and wsjq-duw-yhpgryq medicines. Any problems you or family members [...] provider tells you to take them. Taking mjfg-ktk-dypdsno medicines, vitamins, herbs, and supplements. Tests You [...] Follow these instructions at home: Medicines Take ppan-obe-qupjgdx and prescription medicines only as told by [...] provider. Document Revised: 02/02/2022 Document Reviewed: 01/01/2021 [employer] Patient Education 2022 [employer]. Follow Up Care 11/23/2022 13:02:56 With:SOLEDAD HERRERA, Yeyo Blum, URL Address: [facility] [address], [place] [phone] When: Unknown Comments:sched cysto/uros [facility] 08-15-2023 Evaluation note* Encounter Date Diagnosis Assessment Notes Treatment Notes Treatment Clinical Notes Jan, Diabetic nephropathy (ICD-10 - E11.21) [facility] Other 06-29-2023 Evaluation note* Encounter Date Diagnosis [...] patient to follow with Cardiology as scheduled. [facility] Other 06-21-2023 Hospital Discharge instructions Patient Education [...] provider. Document Revised: 08/11/2021 Document Reviewed: 05/07/2021 [employer] Patient Education 2021 [employer]. 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) [facility] Other 04-12-2023 Evaluation note* Encounter Date Diagnosis Assessment Notes Treatment Notes Treatment Clinical Notes Sep, 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) Sep, 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) [facility] Other 03-20-2023 Evaluation note* Encounter Date Diagnosis Assessment Notes Treatment Notes Treatment Clinical Notes Aug, Diabetic nephropathy (ICD-10 - E11.21) [facility] Other 03-03-2023 Evaluation note* Encounter Date Diagnosis Assessment Notes Treatment Notes Treatment Clinical Notes Aug, Pain in right leg (ICD-10 - M79.604) [facility] Other 03-02-2023 Evaluation note* Encounter Date Diagnosis Assessment Notes Treatment Notes Treatment Clinical Notes Aug, Pain in right leg (ICD-10 - M79.604) [facility] Other 02-20-2023 Evaluation note* Encounter Date Diagnosis Assessment Notes Treatment Notes Treatment Clinical Notes Jul, Intractable episodic headache, unspecified headache type (ICD-10 - R51.9) [facility] Other 02-14-2023 Evaluation note* Encounter Date Diagnosis Assessment Notes Treatment Notes Treatment Clinical Notes Jul, Acute intractable headache, unspecified headache type (ICD-10 - R51.9) [facility] Other 02-08-2023 Evaluation note* Encounter Date Diagnosis Assessment Notes Treatment Notes Treatment Clinical Notes Jul, Headache (ICD-10 - R51.9) [facility] Other 01-30-2023 Evaluation note* Encounter Date Diagnosis [...] medication and we will continue to monitor. [facility] Other 12-21-2022 Evaluation note* Encounter Date Diagnosis Assessment Notes Treatment Notes Treatment Clinical Notes May, Diabetic nephropathy (ICD-10 - E11.21) [facility] Other 11-21-2022 Evaluation note* Encounter Date Diagnosis Assessment Notes Treatment Notes Treatment Clinical Notes Apr, Diabetic nephropathy (ICD-10 - E11.21) [facility] Other 11-15-2022 Evaluation note* Encounter Date Diagnosis Assessment Notes Treatment Notes Treatment Clinical Notes Apr, Pain in right leg (ICD-10 - M79.604) [facility] Other 10-18-2022 Evaluation note* Encounter Date Diagnosis Assessment Notes Treatment Notes Treatment Clinical Notes Mar, Diabetic nephropathy (ICD-10 - E11.21) [facility] Other 09-13-2022 Evaluation note* Encounter Date Diagnosis Assessment Notes Treatment Notes Treatment Clinical Notes Feb, Hypertensive chronic kidney disease with stage 1 through stage 4 chronic kidney disease, or unspecified chronic kidney disease (ICD-10 - I12.9) [facility] Other 09-13-2022 Evaluation note* Encounter Date Diagnosis [...] is to continue to follow with the llama farmer as scheduled. Feb, Pain in right leg [...] Noted upon review of blood work results. [facility] Other 08-19-2022 Evaluation note* Encounter Date Diagnosis Assessment Notes Treatment Notes Treatment Clinical Notes Jan, Diabetic nephropathy (ICD-10 - E11.21) [facility] Other 08-17-2022 Evaluation note* Encounter Date Diagnosis Assessment Notes Treatment Notes Treatment Clinical Notes Jan, Diabetic nephropathy (ICD-10 - E11.21) [facility] Other 07-21-2022 Evaluation note* Encounter Date Diagnosis Assessment Notes Treatment Notes Treatment Clinical Notes Dec, Diabetic nephropathy (ICD-10 - E11.21) [facility] Other 06-22-2022 Evaluation note* Encounter Date Diagnosis Assessment Notes Treatment Notes Treatment Clinical Notes Nov, Diabetic nephropathy (ICD-10 - E11.21) [facility] Other 05-23-2022 Evaluation note* Encounter Date Diagnosis Assessment Notes Treatment Notes Treatment Clinical Notes October, Diabetic nephropathy (ICD-10 - E11.21) [facility] Other 05-17-2022 Evaluation note* Encounter Date Diagnosis [...] He did quit smoking since July 2020 [facility] Other 05-16-2022 Evaluation note* Encounter Date Diagnosis Assessment Notes Treatment Notes Treatment Clinical Notes October, Hypertensive chronic kidney disease with stage 1 through stage 4 chronic kidney disease, or unspecified chronic kidney disease (ICD-10 - I12.9) October, Stage 3 chronic kidney disease, unspecified whether stage 3a or 3b CKD (ICD-10 - N18.30) [facility] Other 05-06-2022 Evaluation note* Encounter Date Diagnosis Assessment Notes Treatment Notes Treatment Clinical Notes October, Pain in right leg (ICD-10 - M79.604) October, Pain in left leg (ICD-10 - M79.605) [facility] Other 04-20-2022 Evaluation note* Encounter Date Diagnosis Assessment Notes Treatment Notes Treatment Clinical Notes Sep, Diabetic nephropathy (ICD-10 - E11.21) [facility] Other 04-19-2022 Evaluation note* Encounter Date Diagnosis Assessment Notes Treatment Notes Treatment Clinical Notes Sep, Anxiety (ICD-10 - F41.9) Sep, Hypertensive chronic kidney disease with stage 1 through stage 4 chronic kidney disease, or unspecified chronic kidney disease (ICD-10 - I12.9) [facility] Other 03-07-2022 Evaluation note* Encounter Date Diagnosis Assessment Notes Treatment Notes Treatment Clinical Notes Aug, Anxiety (ICD-10 - F41.9) [facility] Other 02-22-2022 Evaluation note* Encounter Date Diagnosis [...] 12 pound weight loss from last visit. [facility] Other 01-19-2022 Evaluation note* Encounter Date Diagnosis Assessment Notes Treatment Notes Treatment Clinical Notes Jun, Diabetic nephropathy (ICD-10 - E11.21) [place] [employer] Other Consult note Author Amina Fagan [facility] Note Date/Time August 11, 2024 2:18 pm [facility] [address] [place] [address] Nephrology Consult Note Signed Patient: Myra Pickard SR MR#: [id number] : 1965 Acct:[id number] Age/Sex: 59 / M Adm Date: 5 Loc: 3T Room: [address] [place] [address] Type: ADM IN Attending Dr: Kevon Viera MD Copies to: MD Teresa Stewart DO Obaydah M Daromar, MD~ Providers Consult Date: 08/11/24 Requesting Provider: Kevon Viera MD Primary Care Provider: DO KIT Valiente Reason for Consult: Acute kidney injury on [...] reviewed 12 system review is negative today [facility] Medical History Chronic obstructive pulmonary disease, unspecified [...] mass Atrial fibrillation 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 by Dr. Simon Hernández Vascular History of [...] [History Confirmed 08/11/24] flash glucose scanning reader ([employer] Jigar 2 [place]) #1 ea 12/28/23 [Rx Confirmed 08/11/24] flash [...] 32 gauge x 5/32 (Comfort EZ Pen Irvona) #100 ea 04/15/24 [Rx Confirmed 08/11/24] hydroxyzine [...] 25 Mg Tablet) 25 mg PO HS [facility] Stop: 08/11/25 21:59 Aspirin (Aspirin 81 [...] 1,000 Mcg/Ml Vial) 1,000 mcg IM DAILY [facility] Stop: 08/17/24 09:01 Last Admin: 08/11/24 [...] Q12HR [facility] Stop: 08/11/25 08:59 Last Admin: 08/11/24 [...] 300 Units/3 Ml) 0 units SUBCUT TID.WM.HS [facility]; Protocol Stop: 08/11/25 07:59 Last Admin: 08/11/24 13:40 Dose: Not Given Ipratropium Chilton (Ipratropium [place] 0.5 Mg/2.5 Ml Vial.Neb) 0.5 mg INHALATION QID.RESP [facility]ISH Stop: 08/11/25 07:59 Last Admin: 08/11/24 13:00 Dose: 0.5 mg Isosorbide Mononitrate (Isosorbide Mononitrate 24hr Er 30 Mg Tab.Er.24h) 30 mg PO DAILY [facility] Stop: 08/11/25 08:59 Last Admin: 08/11/24 09:13 Dose: 30 mg Metoprolol Tartrate (Metoprolol Tartrate 100 Mg Tablet) 100 mg PO BID [facility] Stop: 08/11/25 08:59 Last Admin: 08/11/24 09:13 Dose: 100 mg Pantoprazole Sodium (Pantoprazole 40 Mg Tablet.Dr) 40 mg PO BID [facility] Stop: 08/11/25 08:59 Last Admin: 08/11/24 09:13 Dose: 40 mg Pregabalin (Pregabalin 75 Mg Capsule) 75 mg PO TID [facility] Stop: 02/07/25 08:59 Last Admin: 08/11/24 13:40 Dose: 75 mg Ropinirole HCl (Ropinirole 1 Mg Tablet) 1 mg PO TID [facility] Stop: 08/11/25 08:59 Last Admin: 08/11/24 13:40 Dose: 1 mg Tamsulosin HCl (Tamsulosin 0.4 Mg Cap.Er.24h) 0.4 mg PO BID [facility] Stop: 08/11/25 08:59 Last Admin: 08/11/24 09:13 Dose: 0.4 mg Tizanidine HCl (Tizanidine 4 Mg Tablet) 4 mg PO QHS [facility] Stop: 08/11/25 21:59 Exam Physical Exam [...] Appearance Clear Urine pH 5.5 Ur Specific [place] 1.024 Urine Protein Negative Urine Glucose (UA) 500 H Urine Ketones Negative Urine Occult Blood Negative Urine Nitrite Negative Ur Leukocyte Esterase Negative Radiology Impressions Impressions - last 24 hours: Impressions Chest X-Ray 08/11/24 04:22 IMPRESSION: No acute process. Impression dictated by: Sudeep Lind M.D.08/11/2024 10:06 AM Dictation Location: [place] [address] 08/11/24 04:22 IMPRESSION: No acute [...] Sudeep Lind M.D.08/11/2024 10:06 AM Dictation Location: [place] [address] Any impression(s) listed above is documentation that [...] <Electronically signed by Amina Fagan MD> 08/11/24 1418 [facility] Work Phone: [place] [address] Cardiology Consult Note Signed Patient: Myra Pickard SR MR#: [id number] : 1965 Acct:[id number] Age/Sex: 59 / M Adm Date: 5 Loc: Room: [address] [place] [address] Type: ADM INOo Attending Dr: Abdullahi Canchola DO Copies to: DO Pascale Guzman MD, [facility] Abdullahi Canchola DO~ Cardiology HPI History [...] post right below-knee amputation February 2024 in [place]. He has COPD followed by pulmonary medicine in [place]. His EKG showed no acute changes his [...] he gets seen first by his primary llama farmer in the office, I emphasized to the [...] symptoms. 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 by Dr. Simon Hernández Vascular History of [...] 07/12/23[History Confirmed 10/10/24] flash glucose scanning reader ([employer]Style Jigar 2 [place]) #1 ea 12/28/23 [Rx Confirmed 10/10/24] flash [...] 32 gauge x 5/32 (Comfort EZ Pen Irvona) #100 ea 04/15/24 [Rx Confirmed 10/10/24] hydroxyzine [...] Lymph # (Auto) 2.0 2.0 (1.00-4.8) x10E3/uL [place] # (Auto) 0.8 0.9 H (0.0-0.8) x10E3/uL [...] RCA, nuclear stress test February 2024 in [place] was normal Plan: Continue aggressive risk factors modifications, tobacco cessation, dual antiplatelet therapy, high intensity statin Code(s): I25.10 - Atherosclerotic heart disease of [place] sh[place] coronary artery without angina pectoris Documented By: Pascale Arnold MD, [facility] 5 0947 Signed By: 10/11/24 0956 [facility] Jo[facility] Powell [facility] March 06, 2024 4:23pm Note Date/Time March 06, 2024 3: 58pm [facility] [address] [place], [place] [id number] Discharge Summary Signed Patient: Myra Pickard SR MR#: [id number] : 1965 Acct:[id number] Age/Sex: 58 / M Adm Date: 4 Loc: Room: 7I9069-[address]: João Powell MD Copies to: [...] neuropathy status post right BKA recently at [facility]. He presents today with episodes of lightheadedness [...] Instructions: As directed (DME) [employer] Jigar 2 [place] Misc See Rx Instructions .ROUTE Qty: 1 [...] % (Auto) N/A, Lymph % (Auto) N/A, [place] % (Auto) N/A, Eos % (Auto) N/A, Baso % (Auto) N/A, Nucleat RBC Rel Count N/A, Neut # (Auto) N/A, Lymph # (Auto) N/A, [place] # (Auto) N/A, Eos # (Auto) N/A, [...] 106 Documented By: João Powell MD 03/06/24 3744 Signed By: <Electronically signed by João Powell MD> 03/06/24 4075 [facility] Work Phone: Discharge summary Author Kevon Viera [facility] Note Date/Time August 13, 2024 2:3 9pm [facility] [address] [place] [address] Discharge Summary Signed Patient: Myra Pickard SR MR#: [id number] : 1965 Acct:[id number] Age/Sex: 59 / M Adm Date: 5 Loc: Room: [address] [place] [address]: Kevon Viera MD Copies to: [...] (DME) pen needle, diabetic [Comfort EZ Pen Irvona] 32 gauge x / needle See Rx [...] Instructions: As directed (DME) FreeStyle Jigar 2 [place] Misc See Rx Instructions .Route Qty: 1 [...] <Electronically signed by Kevon Viera MD> 08/13/24 1439 [facility] Work Phone: [place] [address] Discharge Summary Signed Patient: Myra Pickard MR#: [id number] : 1965 Acct:[id number] Age/Sex: 59 / M Adm Date: 5 Loc: Room: [address] [place] [address]: Abdullahi Canchola DO Copies to: DO Abdullahi Guzman DO~ Providers Date of Discharge: 10/11/24 Discharging Provider: Abdullahi Canchola Primary Care Provider: Teresa Lynch Consults: 10/10/24 18:25 Consult to Cardiology Routine Comment: Consulting Provider: [facility], [facility] Reason For Exam: chest pain Has [...] (DME) pen needle, diabetic [Comfort EZ Pen Irvona] 32 gauge x needle See Rx Instructions .Route Qty: 100 [...] Instructions: As directed (DME) FreeStyle Jigar 2 [place] Misc See Rx Instructions .Route Qty: 1 0RF Rx Instructions: As directed Discontinued valsartan-hydrochlorothiazide [Diovan HCT] 160-12.5 mg tablet 1 tab PO DAILY Follow Up: [facility] [Outside] (Once Insurance approves outpatient Stress Test [...] % (Auto) 58.3, Lymph % (Auto) 25.5, [place] % (Auto) 10.9, Eos % (Auto) 4.0, Baso % (Auto) 1.3, Nucleat RBC Rel Count 0.1, Neut # (Auto) 4.6, Lymph # (Auto) 2.0, [place] # (Auto) 0.9 H, Eos # (Auto) [...] Neut % (Auto) 61.8, Lymph % (Auto)23.4, [place] % (Auto) 9.5, Eos % (Auto) 4.0, Baso % (Auto) 1.3, Nucleat RBC Rel Count 0.2, Neut # (Auto) 5.3, Lymph # (Auto) 2.0, [place] # (Auto) 0.8, Eos # (Auto) 0.3, [...] 10/11/24 13 40 Signed By: 10/11/24 1358 [facility] Author Abdullahi Canchola [facility] Note Date/Time October 11, 2024 1:58pm [facility] [address] [place] [address] Discharge Summary Signed Patient: Myra Pickard SR MR#: [id number] : 1965 Acct:[id number] Age/Sex: 59 / M Adm Date: 5 Loc: Room: [address] [place] [address]: Abdullahi Canchola DO Copies to: DO Abdullahi Guzman DO~ Providers Date of Discharge: 10/11/24 Discharging Provider: Abdullahi Canchola Primary Care Provider: Teresa Lynch Consults: 10/10/24 18:25 Consult to Cardiology Routine Comment: Consulting Provider: [facility], [facility] Reason For Exam: chest pain Has [...] (DME) pen needle, diabetic [Comfort EZ Pen Irvona] 32 gauge x 5/32 needle See Rx [...] Instructions: As directed (DME) FreeStyle Jigar 2 [place] Misc See Rx Instructions .Route Qty: 1 0RF Rx Instructions: As directed Discontinued valsartan-hydrochlorothiazide [Diovan HCT] 160-12.5 mg tablet 1 tab PO DAILY Follow Up: [facility] [Outside] (Once Insurance approves [...] % (Auto) 58.3, Lymph % (Auto) 25.5, [place] % (Auto) 10.9, Eos % (Auto) 4.0, Baso % (Auto) 1.3, Nucleat RBC Rel Count 0.1, Neut # (Auto) 4.6, Lymph # (Auto) 2.0, [place] # (Auto) 0.9 H, Eos # (Auto) [...] % (Auto) 61.8, Lymph % (Auto) 23.4, [place] % (Auto) 9.5, Eos % (Auto) 4.0, Baso % (Auto) 1.3, Nucleat RBC Rel Count 0.2, Neut # (Auto) 5.3, Lymph # (Auto) 2.0, [place] # (Auto) 0.8, Eos # (Auto) 0.3, [...] <Electronically signed by Abdullahi Canchola DO> 10/11/24 1358 [facility] Work Phone: Evaluation + Plan note Future Appointments Appointment Date:12/21/2022 11:00:00 AM Scheduled Provider: Location:[facility] Appointment Type:URO Nurse Visit Appointment Date:01/30/2023 10:30:00 AM Scheduled Provider:Yeyo ROWE MD Location:[facility] Appointment Type:URO Office Visit [facility] Evaluation + Plan note Future Appointments Appointment Date:01/30/2023 10:15:00 AM Scheduled Provider:Yeyo ROWE MD Location:[facility] Appointment Type:URO Office Visit [facility] Evaluation + Plan note Future Appointments Appointment Date:02/01/2023 10:00:00 AM Scheduled Provider: Location:[facility] Appointment Type:Urology CALL PAT FT Appointment Date:02/08/2023 09:00:00 AM Scheduled Provider: Location:[facility] Appointment Type:Urology FT Appointment Date:02/14/2023 09:15:00 AM Scheduled Provider: Location:[facility] Appointment Type:Urology FT [facility] evaluation + Plan note Future Appointments Appointment Date:02/14/2023 09:15:00 AM Scheduled Provider: Location:[facility] Future Appointments Appointment Date:03/20/2023 08:45:00 AM Scheduled Provider: Location:[facility] Appointment Type:URO Nurse Visit Appointment Date:04/05/2023 08:00:00 AM Scheduled Provider:Yeyo ROWE MD Location:[facility] Appointment Type:URO [facility] Future Appointments Appointment Date:05/03/2023 08:45:00 AM Scheduled Provider:Yeyo ROWE MD Location:[facility] [place] Appointment Type:URO Office Visit [facility] Evaluation + Plan note Future Appointments Appointment Date:07/03/2023 10:15:00 AM Scheduled Provider:Yeyo ROWE MD Location:[facility] Appointment Type:URO Office Visit [facility] evaluation + Plan note Future Appointments Appointment Date:10/23/2023 09:30:00 AM Scheduled Provider:Mike Montes MD Location[facility] Appointment Type:Vascular Follow Up (FT) [facility] noteNo InformationNort [employer] Other evaluation noteNo assessment information available [facility] [employer] Work Phone: evaluation note* Diagnosis History of PTCA Postsurgical percutaneous transluminal coronary angioplasty status Hyperlipidemia, unspecified hyperlipidemia type Encounter for pre-operative cardiovascular clearance Former smoker Personal history of tobacco use, presenting hazards to health documented in this encounter [facility] Work Phone: Evaluation note* Diagnosis Onset Date Resolution Status Anemia acute Atrial fibrillation acute Chronic back pain acute Cigarette nicotine dependenc e with nicotine-induced disorder acute Diabetic nephropathy associa jorge with secondary diabetes mellitus acute GERD (gastroesophageal reflux disease) acute Hyperlipidemia acute Restless legs syndrome acute Syncope acute CAD (coronary artery disease) chronic Chronic kidney disease chron ic Diabetes chronic Hypertension chronic [facility] Work Phone: Evaluation note* Diagnosis [...] chronic Altered mental status acute Hypothermia acute [facility] Work Phone: Evaluation note* Diagnosis [...] acute Restless legs syndrome acute Syncope acute [facility] Work Phone: Evaluation note* Diagnosis Onset [...] imaging acute GERD (gastroesophageal reflux disease) acute [facility] Work Phone: Evaluation note* Diagnosis [...] GERD (gastroesophageal reflux disease) acute Diabetes acute [facility] Work Phone: Evaluation note* Diagnosis Shortness of breath documented in this encounter [facility] Work Phone: Evaluation note* Diagnosis Abscess of right foot- Primary Cellulitis and abscess of foot, except toes Status post partial amputation of right foot ([facility]) Type 2 diabetes mellitus with stage 4 chronic kidney disease, without long-term current use of insulin ([facility]) Atherosclerosis of [place] coronary artery of [place] heart without angina pectoris Bacterial sepsis ([facility]) Bacteremia Other acute osteomyelitis of right foot ([facility]) Chronic obstructive pulmonary disease, unspecified COPD type ([facility]) Cigarette smoker Tobacco use disorder BPH with obstruction/lower urinary tract symptoms Gastroesophageal reflux disease, unspecified whether esophagitis present Restless leg syndrome Restless legs syndrome (RLS) Hyperlipidemia, unspecified hyperlipidemia type Carpal tunnel syndrome, unspecified laterality Heart failure, unspecified HF chronicity, unspecified heart failure type ([facility]) documented [facility] encounter [facility]* Diagnosis Diarrhea, unspecified type- Primary Other acute osteomyelitis of right foot ([facility]) Status post partial amputation of right foot ([facility]) Chronic obstructive pulmonary disease, unspecified COPD type ([facility]) Abscess of right foot Cellulitis and abscess of foot, except toes Type 2 diabetes mellitus with stage 4 chronic kidney disease, without long-term current use of insulin ([facility]) documented in this encounter [facility]* Diagnosis Status post partial amputation of right foot ([facility])- Primary Pressure ulcer of right ankle, stage 3 ([facility]) Other abnormalities of gait and mobility Delayed surgical wound healing of foot amputation stump ([facility]) documented in this encounter [facility]* Diagnosis 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 ([facility])- Primary Poor circulation Unspecified circulatory system disorder Heavy tobacco smoker >10 cigarettes per day documented in this encounter [facility]* Diagnosis Status post partial amputation of right foot ([facility])- Primary 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 ([facility]) Type 2 diabetes mellitus with stage 4 chronic kidney disease, without long-term current use of insulin ([facility]) documented in this encounter [facility]* Diagnosis Peripheral arterial disease ([facility])- Primary Unspecified peripheral vascular disease Delayed surgical wound healing of foot amputation stump ([facility]) Other abnormalities of gait and mobility Status post partial amputation of right foot ([facility]) Pressure ulcer of right ankle, stage 3 ([facility]) Type 2 diabetes mellitus with stage 4 chronic kidney disease, without long-term current use of insulin ([facility]) documented in this encounter [facility]* Diagnosis 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 ([facility])- Primary Status post partial amputation of right foot ([facility])- Primary Osteomyelitis of right foot, unspecified type ([facility]) Muscle weakness (generalized) Other abnormalities of gait and mobility Chronic obstructive pulmonary disease, unspecified COPD type ([facility]) Peripheral arterial disease ([facility]) Unspecified peripheral vascular disease 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 ([facility]) documented in this encounter [facility]* Diagnosis Status post partial amputation of right foot ([facility])- Primary Other abnormalities of gait and mobility Leg edema Edema Primary hypertension Unspecified essential hypertension Hypotension due to drugs Other iatrogenic hypotension 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 ([facility]) Diabetic polyneuropathy associated with type 2 diabetes mellitus ([facility]) [facility] Diagnosis 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 ([facility])- Primary Cigarette smoker motivated to quit [facility] Diagnosis 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 ([facility])- Primary 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 ([facility]) Delayed surgical wound healing of foot amputation stump ([facility]) Other abnormalities of gait and mobility documented in this encounter [facility]* Diagnosis 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 ([facility])- Primary [facility] Diagnosis 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 ([facility])- Primary Cigarette smoker Tobacco use disorder documented in this encounter [facility]* Diagnosis Diabetic polyneuropathy associated with type 2 diabetes mellitus ([facility])- Primary Disorientation Other general symptoms Other abnormalities of gait and mobility Status post partial amputation of right foot ([facility]) Atherosclerosis of [place] coronary artery of [place] heart without angina pectoris Atrial fibrillation ([facility]) Primary hypertension Unspecified essential hypertension documented in this encounter [facility]* Diagnosis Diabetic polyneuropathy associated with type 2 diabetes mellitus ([facility])- Primary Encounter for orthopedic aftercare following surgical amputation Other abnormalities of gait and mobility Restless leg syndrome Restless legs syndrome (RLS) documented in this encounter [facility]* Diagnosis 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 ([facility])- Primary Poor circulation Unspecified circulatory system disorder Heavy tobacco smoker >10 cigarettes per day 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 ([facility])- Primary Cigarette smoker motivated to quit 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 [place] Primary Cigarette smoker Tobacco use disorder History of right below knee amputation ([facility] Primary [facility] Diagnosis Encounter for orthopedic aftercare following surgical amputation- Primary Cigarette smoker Tobacco use disorder Diabetic polyneuropathy associated with type 2 diabetes mellitus ([facility]) Other abnormalities of gait and mobility Muscle spasm Spasm of muscle documented in this encounter [facility] Diagnosis PAD (peripheral artery disease) ([facility] Primary Unspecified peripheral vascular disease documented in this encounter [facility] Diagnosis Encounter for orthopedic aftercare following surgical amputation- Primary Other abnormalities of gait and mobility BPH with obstruction/lower urinary tract symptoms Diabetic polyneuropathy associated with type 2 diabetes mellitus ([facility] Atherosclerosis of ely shoshone coronary artery of ely shoshone heart without angina pectoris Heart failure, unspecified HF chronicity, unspecified heart failure type ([facility] Primary hypertension Unspecified essential hypertension Peripheral arterial disease ([facility] Unspecified peripheral vascular disease Chronic obstructive pulmonary disease, unspecified COPD type ([facility]) Gastroesophageal reflux disease, unspecified whether esophagitis present Muscle weakness (generalized) documented in this encounter [facility] Diagnosis Onset Date Resolution Status Admit Date Acute kidney injury superimp osed on CKD acute August 11, 2024 5:39am Diabetes acute August 11 5:39am Hypocalcemia acute August 11 025 5:39am Left sided numbness acute August 11, 2024 5:39am Paresthesias acute August 11, 2 025 5:39am Hypertension chronic August 11 025 5:39am [facility] Work Phone: Evaluation note* Diagnosis Chest pain, unspecified type documented in this encounter [facility] Work Phone: Evaluation note* Diagnosis 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 ([facility] Primary Poor circulation Unspecified circulatory system disorder Heavy tobacco smoker >10 cigarettes per day 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 ([facility] Primary Cigarette smoker motivated to quit 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)- Primary Cigarette smoker Tobacco use disorder 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)- Primary Hx of right BKA (CMS-HCC) Cigarette smoker Tobacco use disorder documented [facility] Author Mike Burleson [facility] Note Date/Time April 23, 2024 1:50pm [facility] [address] [place] [address] Gastroenterology H&P Signed Patient: Myra Pickard SR MR#: [id number] : 1965 Acct:[id number] Age/Sex: 58 / M Adm Date: 4 Loc: Room: Type: [facility] Attending Dr: Mike Burleson MD Copies [...] Mike Burleson MD 04/23/24 1349 Signed By: <Electronically signed by Mike Burleson MD> 04/23/24 1353 [facility] Work Phone: History and physical note Author Marge Andino [facility] Note Date/Time August 11, 2024 7:24 am [facility] [address] [place] [address] Hospitalist H&P Signed Patient: Myra Pickard SR MR#: [id number] : 1965 Acct:[id number] Age/Sex: 59 / M Adm Date: 5 Loc: Room: [address] [place] [address] Type: ADM IN Attending Dr: Kevon Viera [...] neck without acute findings -official report pending [facility] Medical History Chronic obstructive pulmonary disease, unspecified [...] mass Atrial fibrillation 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 by Dr. Simon Hernández Vascular History of [...] [History Confirmed 08/11/24] flash glucose scanning reader (Retail Info Jigar 2 [place]) #1 ea 12/28/23 [Rx Confirmed 08/11/24] flash glucose sensor (iWeb TechnologiesStyle Jigar 2 Sensor kit) #1 ea 12/28/23 [...] 32 gauge x 5/32 (Comfort EZ Pen Irvona) #100 ea 04/15/24 [Rx Confirmed 08/11/24] hydroxyzine [...] 04:15 Lymph % (Auto) N/A 08/11/24 04:15 [place] % (Auto) N/A 08/11/24 04:15 Eos % (Auto) N/A 08/11/24 04:15 Baso % (Auto) N/A 08/11/24 04:15 Nucleat RBC Rel Count N/A 08/11/24 04:15 Neut # (Auto) N/A 08/11/24 04:15 Lymph # (Auto) N/A 08/11/24 04:15 [place] # (Auto) N/A 08/11/24 04:15 Eos # [...] 08/11/24 0717 Signed By: <Electronically signed by Magre Andino MD> 08/11/24 0724 [facility] Work Phone: History and [place] [id number] Hospitalist H&P Signed Patient: Myra Pickard MR#: [id number] : 1965 Acct:[id number] Age/Sex: 59 / M Adm Date: 5 Loc: Room: [address] [place] [address] Type: ADM INOo Attending Dr: Abdullahi Canchola DO Copies to: DO Abdullahi Guzman, ~ HPI DATE OF EXAMINATION: 10/10/24 CHIEF COMPLAINT: [...] He reports multivessel PCI'saround the time of 2013- at [facility]. He hasstent information cards that are [...] Continue to trend cardiac markers, routine echocardiogram. [facility] Medical History Hypokalemia Hypocalcemia Hypomagnesemia Vitamin B12 [...] mass Atrial fibrillation 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 by Dr. Simon Hernández Vascular History of [...] 07/12/23[History Confirmed 10/10/24] flash glucose scanning reader (iWeb [employer]Style Jigar 2 [place]) #1 ea 12/28/23 [Rx Confirmed 10/10/24] flash glucose sensor (FreeStyle Jigar 2 Sensor kit) #1 ea 12/28/23 [Rx Confirmed 10/10/24] tiotropium bromide 18 mcg capsule with inhalation device (Spiriva with HandiHaler) 1 cap inhalationDAILY 03/03/24 [History Confirmed 10/10/24] tamsulosin 0.4 mg capsule (Flomax) 0.4 mg PO BID 03/08/24 [History Confirmed 10/10/24] insulin syringe,safety needle 1 mL 30 gauge x 1/2 #100 ea 10/25/24 [Rx Confirmed 10/10/24] aspirin 81 mg tablet,delayed release 81 mg PO DAILY 04/05/24 [History Confirmed 10/10/24] budesonide-formoterol HFA 160 mcg-4.5 mcg/actuation aerosol inhaler 2 puff inhalation BID 04/05/24 [History Confirmed 10/10/24] sildenafil 100 mg tablet 100 mg PO DAILY PRN sexual activity #30 tabs 04/05/24 [Rx Confirmed 10/10/24] pen needle, diabetic 32 gauge x 5/32 (Comfort EZ Pen Irvona) #100 ea 04/15/24 [Rx Confirmed 10/10/24] hydroxyzine [...] % (Auto) 23.4 % (.) 10/10/24 15:42 [place] % (Auto) 9.5 % (.) 10/10/24 15:42 Eos % (Auto) 4.0 % (.) 10/10/24 15:42 Baso % (Auto) 1.3 % (.) 10/10/24 15:42 Nucleat RBC Rel Count 0.2 /100 WBC (0-0.5) 10/10/24 15:42 Neut # (Auto) 5.3 x10E3/uL (1.8-7.7) 10/10/24 15:42 Lymph # (Auto) 2.0 x10E3/uL (1.00-4.8) 10/10/24 15:42 [place] # (Auto) 0.8 x10E3/uL (0.0-0.8) 10/10/24 15:42 [...] 10/10/24 18 33 Signed By: 10/11/24 1358 [facility] Author Abdullahi Canchola [facility] Note Date/Time October 11, 2024 1:58pm [facility] [address] [place] [address] Hospitalist H&P Signed Patient: Myra Pickard SR MR#: [id number] : 1965 Acct:[id number] Age/Sex: 59 / M Adm Date: 5 Loc: 4 Room: [address] [place] [address] Type: ADM INOo Attending Dr: Abdullahi Canchola DO Copies to: DO Abdullahi Guzman, DO~ HPI DATE OF EXAMINATION: 10/10/24 CHIEF [...] multivessel PCI's around the time of at [facility]. He hasstent information cards that are [...] Continue to trend cardiac markers, routine echocardiogram. [facility] Medical History Hypokalemia Hypocalcemia Hypomagnesemia Vitamin B12 [...] mass Atrial fibrillation 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 by Dr. Simon Hernández Vascular History of [...] flash glucose scanning reader (FreeStyle Jigar 2 [place]) #1 ea 12/28/23 [Rx Confirmed 10/10/24] flash [...] 32 gauge x 5/32 (Comfort EZ Pen Irvona) #100 ea 04/15/24 [Rx Confirmed 10/10/24] hydroxyzine HCl 25 mg tablet 25 mg PO QHS #90 tabs 05/06/24 [Rx Confirmed 10/10/24] dulaglutide 0.75 mg/0.5 mL subcutaneous pen injector (TrulicApp Annie) 0.75 mg (0.5 mL) subcut QWEEK #2 [...] % (Auto) 23.4 % (.) 10/10/24 15:42 [place] % (Auto) 9.5 % (.) 10/10/24 15:42 Eos % (Auto) 4.0 % (.) 10/10/24 15:42 Baso % (Auto) 1.3 % (.) 10/10/24 15:42 Nucleat RBC Rel Count 0.2 /100 WBC (0-0.5) 10/10/24 15:42 Neut # (Auto) 5.3 x10E3/uL (1.8-7.7) 10/10/24 15:42 Lymph # (Auto) 2.0 x10E3/uL (1.00-4.8) 10/10/24 15:42 [place] # (Auto) 0.8 x10E3/uL (0.0-0.8) 10/10/24 15:42 [...] <Electronically signed by Abdullahi Canchola DO> 10/11/24 0002 [facility] Work Phone: History general Narrative - [...] Boss 07/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 [facility] effects[facility] Work Phone: Hospital course Narrative No data available for this section [facility] Hospital Discharge instructions No data available for this section [facility] Hospital Discharge instructionsAmbulatory Orders* Referral to Pain Management Time Frame: 08/30/24, Location: [facility] Work Phone: InstructionsNot on filedocumented in [...] available for this section [facility] Progress note Author Kevon Viera [facility] Note Date/Time August 11, 2024 1:21 pm [facility] [address] [place] [address] Progress Note Signed Patient: Myra Pickard SR MR#: [id number] : 1965 Acct:[id number] Age/Sex: 59 / M Adm Date: 5 Loc: 3T Room: [address] [place] [address] Type: ADM IN Attending Dr: Kevon Viera [...] signed by Kevon Viera MD> 08/11/24 1321 [facility] Work Phone: Progress note Author Maurice Francis [facility] Note Date/Time August 12, 2024 11: 47am [facility] [address] [place] [address] Nephrology Progress Note Signed Patient: Myra Pickard SR MR#: [id number] : 1965 Acct:[id number] Age/Sex: 59 / M Adm Date: 5 Loc: 3T Room: [id number] Type: ADM IN Attending Dr: Kevon Viera [...] Skin: No rashes , warm to touch TOOL KEEPER: Awake,Alert, 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 Musculoskeletal: No swelling [...] 25 Mg Tablet) 25 mg PO HS [facility] Stop: 08/11/25 21:59 Last Admin: 08/11/24 [...] 1,000 Mcg/Ml Vial) 1,000 mcg IM DAILY [facility] Stop: 08/17/24 09:01 Last Admin: 08/12/24 [...] 5,000 Unit/Ml Vial) 5,000 unit SUBCUT Q12HR [facility] Stop: 08/11/25 08:59 Last Admin: 08/12/24 08:27 Dose: 5,000 unit Hydralazine HCl (Hydralazine 20 Mg/Ml Vial) 10 mg IV-PUSH Q4H PRN PRN Reason: if SBP > 185 Stop: 08/11/25 05:38 Potassium Chloride/Sodium Chloride (0.9 % Nacl-20 Meq Kcl) 1,000 mls @ 125 mls/hr IV .Q8H [facility] Stop: 08/11/25 07:14 Last Admin: 08/12/24 08:26 Dose: 125 mls/hr Ferric Sodium Gluconate Complex 250 mg/ Sodium Chloride 270 mls @ 135 mls/hr IVQAM [facility] Stop: 08/14/24 10:59 Last Admin: 08/12/24 09:19 Dose: 135 mls/hr Insulin Aspart (Insulin Aspart 300 Units/3 Ml) 0 units SUBCUT TID.[facility]; Protocol Stop: 08/11/25 07:59 Last Admin: 08/12/24 08:27 Dose: Not Given Ipratropium Chilton (Ipratropium Chilton 0.5 Mg/2.5 Ml Vial.Neb) 0.5 mg INHALATION QID.RESP [facility] Stop: 08/11/25 07:59 Last Admin: 08/12/24 08:51 Dose: 0.5 mg Isosorbide Mononitrate (Isosorbide Mononitrate 24hr Er 30 Mg Tab.Er.24h) 30 mg PO DAILY [facility] Stop: 08/11/25 08:59 Last Admin: 08/12/24 [...] signed by Maurice Francis MD> 08/12/24 1147 [facility] Work Phone: Progress note Author Kevon Viera [facility] Note Date/Time August 12, 2024 3:1 6pm [facility] [address] [place] [address] Hospitalist Progress Note Signed Patient: Myra Pickard SR MR#: [id number] : 1965 Acct:[id number] Age/Sex: 59 / M Adm Date: 5 Loc: 3T Room: [address] [place] [address] Type: ADM IN Attending Dr: Kevon Viera [...] 1 units TID.WM.[facility] Administration Protocol Ipratropium Chilton 0.5 mg 08/11/24 08:00 08/12/24 12:31 Ipratropium Chilton 0.5 Mg/2.5 Ml Vial.Neb INHALATION 08/11/25 07:59 [...] <Electronically signed by Kevon Viera MD> 08/12/[address] [place] [address] Work Phone: Progress note Author Maurice Francis [facility] Note Date/Time August 13, 2024 11: 06am [facility] [address] [place] [address] Nephrology Progress Note Signed Patient: Myra Pickard SR MR#: [id number] : 1965 Acct:[id number] Age/Sex: 59 / M Adm Date: 5 Loc: 3T Room: [address] [place] [address] Type: ADM IN Attending Dr: Kevon Viera [...] Skin: No rashes , warm to touch TOOL KEEPER: Awake,Alert, 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 Musculoskeletal: No swelling [...] 5,000 Unit/Ml Vial) 5,000 unit SUBCUT Q12HR [facility] Stop: 08/11/25 08:59 Last Admin: 08/13/24 08:25 Dose: 5,000 unit Hydralazine HCl (Hydralazine 20 Mg/Ml Vial) 10 mg IV-PUSH Q4H PRN PRN Reason: if SBP > 185 Stop: 08/11/25 05:38 Ferric Sodium Gluconate Complex 250 mg/ Sodium Chloride 270 mls @ 135 mls/hr IVQAM [facility] Stop: 08/14/24 10:59 Last Admin: 08/12/24 09:19 Dose: 135 mls/hr Insulin Aspart (Insulin Aspart 300 Units/3 Ml) 0 units SUBCUT TID.WM.HS [facility]; Protocol Stop: 08/11/25 07:59 Last Admin: 08/13/24 08:25 Dose: 1 units Ipratropium Chilton (Ipratropium Chilton 0.5 Mg/2.5 Ml Vial.Neb) 0.5 mg INHALATION QID.RESP [facility] Stop: 08/11/25 07:59 Last Admin: 08/13/24 07:54 Dose: 0.5 mg Isosorbide Mononitrate (Isosorbide Mononitrate 24hr Er 30 Mg Tab.Er.24h) 30 mg PO DAILY [facility] Stop: 08/11/25 08:59 Last Admin: 08/13/24 08:25 Dose: 30 mg Metoprolol Tartrate (Metoprolol Tartrate 100 Mg Tablet) 100 mg PO BID [facility] Stop: 08/11/25 08:59 Last Admin: 08/13/24 08:25 Dose: 100 mg Pantoprazole Sodium (Pantoprazole 40 Mg Tablet.Dr) 40 mg PO BID [facility] Stop: 08/11/25 08:59 Last Admin: 08/13/24 08:25 Dose: 40 mg Pregabalin (Pregabalin 75 Mg Capsule) 75 mg PO TID [facility] Stop: 02/07/25 08:59 Last Admin: 08/13/24 [...] weeks Documented By: Maurice Francis MD 08/13/24 9074 Signed By: <Electronically signed by Maurice Francis MD> 08/13/24 1106 [facility] Work Phone: Reason for visit Narrative* CV Imaging (Routine) - Authorized Specialty Diagnoses / Procedures Referred By Brett mandujano Referred To Contact Diagnoses Chest pain, unspecified type Procedures Nuclear Stress Test CHG MYOCARDIAL SPECT MULTIPLE STUDIES Pascale Arnold MD [address] [address] Phone: tel: fax: [place] [address] [place] [address] Phone: tel: Referral ID Status Reason Start Date Expiration Date V isits Requested Visits Authorized [id number] Authorized 10/11/2024 10/11/2025 5 1 [facility] Work Phone: Reason for visit Narrative* CV Imaging (Routine) - Authorized Specialty Diagnoses / Procedures Referred By Brett mandujano Referred To Contact Diagnoses Chest pain, unspecified type Procedures Nuclear Stress Test CHG MYOCARDIAL SPECT MULTIPLE STUDIES Pascale Arnold MD [address] [facility] [address] [place] [address] Phone: tel: fax: [facility] [address] [place] [address] Phone: tel: Referral ID Status Reason Start Date Expiration Date V isits Requested Visits Authorized [id number] Authorized 10/11/2024 10/11/2025 5 1 [facility] Work Phone: Chief Complaint MYRA PICKARD is [...] lwr bilat mult lev/PVR Mike Montes MD [address], [address] [address] Referral ID Status Reason Start Date Expiration Date V isits Requested Visits Authorized [id number] Pending Review 10/18/2023 10/17/2024 1 1 Specialty Diagnoses / Procedures Referred By Brett mandujano Referred To Contact Radiology Diagnoses 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) Procedures CT angiogram abdominal aorta with runoff Mike Montes MD [address], [address] [address] Referral ID Status Reason Start Date Expiration Date V isits Requested Visits Authorized [id number] Pending Review 10/18/2023 10/17/2024 1 1 Referral ID Status Reason Start Date Expiration Date V isits Requested Visits Authorized [id number] Pending Review 10/18/2023 10/17/2024 1 1 Referral ID Status Reason Start Date Expiration Date V isits Requested Visits Authorized [id number] Pending Review 10/18/2023 10/17/2024 1 1 Specialty Diagnoses / Procedures Referred By Contac t Referred To Contact Cardiology Diagnoses Shortness of breath Procedures Transthoracic Echo Complete AL ECHO TTHRC R-T 2D W/WOM-MODE COMPL SPEC&COLR D Bernard De La Cruz MD [address] [place] [address], [address] [address] Referral ID Status Reason Start Date Expiration Date Visits Requested Visits Authorized [id number] Authorized Perform Procedure 01/01/2024 12/31/2024 1 1 Specialty Diagnoses / Procedures Referred By Contac t Referred To Contact Diagnoses Encounter for pre-operative cardiovascular clearance Procedures ECG 12 Lead Raulito Inman MD [address] [place] [address], [address] [address] Referral ID Status Reason Start Date Expiration Date V isits Requested Visits Authorized [id number] Authorized 10/24/2023 10/23/2024 1 1 Specialty Diagnoses / Procedures Referred By Contac t Referred To Contact Cardiology Diagnoses History of PTCA Procedures Follow Up In Cardiology Raulito Inman MD [address] [place] [address], [address] [address] Referral ID Status Reason Start Date Expiration Date V isits Requested Visits Authorized [id number] Authorized 10/24/2023 10/23/2024 1 1 Reason CANCELLED consult and treat; previous patient of Dr. Sharpe last seen in 2020; persisting intractable headaches Diagnosis 1 Acute intractable he adache, unspecified headache type (R51.9) Referral Organization [facility] Referring Provider First Name Teresa Referring Provider Last Name Rory Referring Provider Specialty Family Prac dale Referred Organization [facility] Referred Provider Lyssa Sharpe Referred Address [address],[place], [place],[address] Referred Provider Specialty Neurology Referral Priority Routine General Notes [facility] 023 10:19:08 AM >Received today. [facility] request us to fill out their form and attach to Referral and send it to them and they will call patient to schedule. Referral was sent P2P and fax insurance card since it would not let me attach to referral [facility] 07/28/2022 10:23:53 AM >Spoke with Marilynn at [facility] and patient has been scheduled and cancelled the appt for 07/26/22 [facility] 07/28/2022 10:27:39 AM >Telephone encounter was sent Reason 03/31/22 @ 2:45pm consult and treat Diagnosis 1 Type 2 diabetes bobby itus with circulatory disorder (E11.59) Referral Organization [facility] Referring Provider First Name Teresa Referring Provider Last Name Rory Referring Provider Specialty Family Prac dale Referred Organization [facility] Referred Provider Doris Barnes Referred Address [address],[facility],[place], [place],[address] Referred Provider Specialty Nurse Jono calderon Referral Priority Routine Referral Appointment Date 2022-03-31 General Notes [facility] 022 02:28:10 PM >Received today and sent P2P [facility] 02/16/2022 07:50:21 AM >Patient has been [...] 8:3 7am Non compliance w medication regimen [facility] 2024 8:37am Chief Complaint Admit Date Gait [...] 8:3 7am Non compliance w medication regimen [facility] 2024 8:37am CAD (coronary artery disease) October [...] Procedures ECG 12 Lead Raulito Inman MD 700 [facility] 2, [address] [address] Referral ID Status Reason Start Date Expiration Date V isits Requested Visits Authorized [id number] Authorized 10/24/2023 10/23/2024 1 1 Specialty Diagnoses / Procedures Referred By Contac t Referred To Contact Cardiology Diagnoses Shortness of breath Procedures Transthoracic Echo Complete AL ECHO TTHRC R-T 2D W/WOM-MODE COMPL SPEC&COLR D Bernard De La Cruz MD 703 [facility] 2, [facility] [address] [place] [address] Referral ID Status Reason Start Date Expiration Date Visits Requested Visits Authorized [id number] Authorized Perform Procedure 01/01/2024 12/31/2024 1 1 Reason Comments New Patient Poor Circulation - R eferral from Dr. Soto - No appt available in [place] until 11/02/2023; patient is having right leg and foot pain at a 10 right now since surgery 2 weeks ago Specialty Diagnoses / Procedures Referred By Contac t Referred To Contact Vascular Surgery Diagnoses Poor circulation Paula Soto, DPM [address] [place] [address] [facility] S[facility] [address] [place] [address] Referral ID Status Reason Start Date Expiration Date Visits Requested Visits Authorized [id number] Pending Review Specialty Services Required 10/13/2023 10/12/2024 1 1 Reason Comments Critical limb ischemia of ri ght lower extremity with gangre Follow up on testing completed in [facility] Check insession Reason Comments Angioplasty RLE follow up - procedure at [facility]. 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 AT [facility] Incision w ith toshia, well approximated Reason Comments testing [facility] 2 months ago rt leg Est pt Right BKAPAD (peripheral artery disease) (CMS-HCC) I73.9no testing Care Teams (unrecognized sec tion and content) [...] Team Status: Active Member Role Status Dates Mariely Davis RMMaría Attending Provider Active Start: December 25, 2023 Team Status: Active Member Role Status Dates Mariely Davis RMMaría Attending Provider Active Start: December 28, 2023 [...] João Powell MD Admit Provider Active Start: 2023 End: March 13, 2024 Luther Dozier DO [...] Lynch DO Primary Care Provider Active Shana Mclaguhlin PA-C Attending Provider Active Team Status: Inactive Member Role Status Dates Teresa Lynch DO Primary Care Provider Active Teresa Lynch DO [facility] Attending Provider Active Team Status: Inactive Member [...] Active Member Role Status Dates Teresa Lynch , DO Primary Care Provide r, Attending Provider Active Start: August 05, 2023 Team Status: Active Member Role Status Dates Teresa Lynch , DO Primary Care Provide r, Attending Provider Active Start: August 06, 2023 Team Status: Active Member Role Status Dates Teresa Lynch , DO Primary Care Provide r, Attending Provider Active Start: August 07, 2023 Team Status: Active Member Role Status Dates Treesa Lynch , DO Primary Care Provider Active [...] Provider Active Sta rt: October 06, 2023 E/M Engineer Relationship Specialty Start Date End Date [...] April 24, 2024 End: April 24, 2024 E/M Engineer Relationship Specialty Start Date End Date Teresa Lynch DO PCP - General 04/17/19 Namita Mercer LPN Care Collar Fuser 12/25/23 E/M Engineer Relationship Specialty Start Date End Date Teresa Lynch MD [facility] [place] [id number] PCP - External PCP 03/05/23 Team Status: [...] Conde MD Other Provider Active Start: M jose 2024 Andrew Montes MD Other Provider Active Start: October 10, 2024 Shaheed Barboza MD Other Provider Active Start: M ay 2024 Maryann Pierre , MACHINE ROOM OPERATOR- Other Provider Active Sta rt: October 10, [...] Francis MD Other Provider Active Start: Sallie y 2024 End: October 26, 2024 Team Status: [...] November 05, 2024 End: November 05, 2024 E/M Engineer Relationship Specialty Start Date End Date Teresa Lynch DO [address] [place] [address] PCP - General Family Medicine 11/04/24 E/M Engineer Relationship Specialty Start Date End Date Teresa Lynch DO [address] [place] [address] PCP - General Family Medicine 11/04/24 E/M Engineer Relationship Specialty Start Date End Date Teresa Lynch DO [address] [place] [address] PCP - General Family Medicine 11/04/24 Goals [...] DATE CREATED AUTHOR AUTHOR'S ORGANIZ ATION 01/27/2023 [facility] DATE CREATED AUTHOR AUTHOR'S ORGANIZ ATION 02/16/2023 [facility] DATE CREATED AUTHOR AUTHOR'S ORGANIZ ATION 02/16/2023 [facility] DATE CREATED AUTHOR AUTHOR'S ORGANIZ ATION 10/22/2023 [facility] DATE CREATED AUTHOR AUTHOR'S ORGANIZ ATION 11/16/2023 DATE CREATED AUTHOR AUTHOR'S ORGANIZ ATION 11/25/2023 [facility] DATE CREATED AUTHOR AUTHOR'S ORGANIZ ATION 01/10/2024 [facility] DATE CREATED AUTHOR AUTHOR'S ORGANIZ ATION 02/13/2024 [facility] DATE CREATED AUTHOR AUTHOR'S ORGANIZ ATION 02/14/2024 [facility] DATE CREATED AUTHOR AUTHOR'S ORGANIZ ATION 02/15/2024 [facility] DATE CREATED AUTHOR AUTHOR'S ORGANIZ ATION 02/16/2024 [facility] DATE CREATED AUTHOR AUTHOR'S ORGANIZ ATION 02/17/2024 [facility] DATE CREATED AUTHOR AUTHOR'S ORGANIZ ATION 02/18/2024 [facility] DATE CREATED AUTHOR AUTHOR'S ORGANIZ ATION 02/19/2024 [facility] DATE CREATED AUTHOR AUTHOR'S ORGANIZ ATION 02/20/2024 [facility] DATE CREATED AUTHOR AUTHOR'S ORGANIZ ATION 02/21/2024 [facility] DATE CREATED AUTHOR AUTHOR'S ORGANIZ ATION 02/22/2024 [facility] DATE CREATED AUTHOR AUTHOR'S ORGANIZ ATION 02/23/2024 [facility] DATE CREATED AUTHOR AUTHOR'S ORGANIZ ATION 02/24/2024 [facility] DATE CREATED AUTHOR AUTHOR'S ORGANIZ ATION 05/29/2024 [facility] DATE CREATED AUTHOR AUTHOR'S ORGANIZ ATION 11/08/2024 [facility] DATE CREATED AUTHOR AUTHOR'S ORGANIZ ATION 12/27/[address] [facility] DATE CREATED AUTHOR AUTHOR'S ORGANIZ ATION 02/09/2025 [facility] DATE CREATED AUTHOR AUTHOR'S ORGANIZ ATION 02/28/2025 [facility] DATE CREATED AUTHOR AUTHOR'S ORGANIZ ATION 03/08/2025 [facility] FOR RECORDS PERTAINING TO [...] BE BASED ON THE PRIMARY CLINICAL RECORDS. [employer] provides no warranty or guarantee of the accuracy or completeness of information in this document.
[2025-03-13 18:38] VITALS: PULSE 88
--- NOTE | 2025-03-13 18:43 | ED.GENADUL1 ---
HPI HPI - General Adult General Chief complaint: Extremity Problem, Nontraumatic Stated complaint: LE PAIN Time Seen by Provider: 03/13/25 18:31 Source: patient Mode of arrival: Wheelchair Limitations: no limitations History of Present Illness HPI narrative: Patient is a 59-year-old male with a PMH of PVD, diabetes type 2, CKD stage III, and Right BKA that presents with complaints of wound drainage from 2 wounds on the dorsal aspect of the left foot under the 4th and 5th digits. He has peripheral neuropathy and has minimal pain at the wounds. Patient and his state that there was redness yesterday around the wounds that has resolved today. He has previously seen the wound center, Dr. Elias and his PA, Patricia but has not notified them or his PCP of these wounds. He denies any fever, night sweats, or chills. He has had the wounds for few weeks now. He states that they are from dragging his foot into his bathroom to get into his bathtub. He was just worried as they had started to drain within the last few days. Related Data Home Medications ?Medication ?Instructions ?Recorded ?Confirmed empagliflozin 10 mg tablet 10 mg PO DAILY 03/03/23 03/13/25 (Jardiance) nitroglycerin 0.4 mg sublingual 0.4 mg sublingual Q5M PRN chest 03/03/23 03/13/25 tablet pain Held on 03/13/25. Instructions: Doctor's Order omeprazole 40 mg capsule,delayed 40 mg PO DAILY 03/03/23 03/13/25 release pregabalin 200 mg capsule 200 mg PO TID 03/03/23 03/13/25 atorvastatin 80 mg tablet 80 mg PO DAILY 12/09/23 03/13/25 clopidogrel 75 mg tablet 75 mg PO DAILY 12/09/23 03/13/25 dulaglutide 0.75 mg/0.5 mL 0.75 mg subcut QWEEK 12/09/23 03/13/25 subcutaneous pen injector ([facility]) tamsulosin 0.4 mg capsule 0.4 mg PO BID 12/09/23 03/13/25 amitriptyline 25 mg tablet 25 mg PO .qhs 12/10/23 03/13/25 budesonide-formoterol HFA 160 2 inh inhalation BID 12/10/23 02/15/25 mcg-4.5 mcg/actuation aerosol inhaler (Symbicort) furosemide 40 mg tablet (Lasix) 40 mg PO DAILY 12/10/23 03/13/25 allopurinol 100 mg tablet 100 mg PO DAILY 12/15/24 03/13/25 blood-glucose sensor (FreeStyle 12/15/24 03/13/25 Jigar 2 Plus Sensor device) calcium 500 mg (as 1 tab PO DAILY 12/15/24 03/13/25 carbonate)-vitamin D3 10 mcg (400 unit) tablet (Calcium 500 With D) clonazepam 0.5 mg tablet 0.5 mg PO QAM 12/15/24 03/13/25 ferrous sulfate 325 mg (65 mg 325 mg PO BID 12/15/24 03/13/25 iron) tablet hydroxyzine HCl 25 mg tablet 25 mg PO .QHS 12/15/24 03/13/25 magnesium oxide 400 mg (241.3 mg 400 mg PO DAILY 12/15/24 03/13/25 magnesium) tablet metoprolol tartrate 25 mg tablet 50 mg PO BID 12/15/24 03/13/25 ropinirole 0.5 mg tablet 0.5 mg PO TID 12/15/24 03/13/25 valsartan 80 1 tab PO .QD 12/15/24 03/13/25 mg-hydrochlorothiazide 12.5 mg tablet aspirin 81 mg tablet 81 mg PO DAILY 02/15/25 03/13/25 empagliflozin 10 mg tablet 10 mg PO DAILY 02/15/25 03/13/25 (Jardiance) glimepiride 2 mg tablet 1 mg PO BID 02/15/25 03/13/25 metformin 1,000 mg tablet 1,000 mg PO BID 02/15/25 03/13/25 Previous Rx's ?Medication ?Instructions ?Recorded sitagliptin phosphate 100 mg 50 mg (1/2 x 100 mg) PO DAILY #0 02/16/25 tablet (Januvia) tabs doxycycline hyclate 100 mg tablet 100 mg PO BID 10 days #20 tabs 03/13/25 Allergies Allergy/AdvReac Type Severity Reaction Status Date / Time Penicillins Allergy Severe Swelling Verified 02/14/25 20:59 of Lip/Tongue/Throat bee venom protein (honey bee) Allergy Swelling Verified 02/14/25 20:59 of Lip/Tongue/Throat latex Allergy Rash Verified 02/14/25 20:59 Opioid HPI Opioid Management Most Recent Opioid Data: Last Pain Scale 2 Today, 18:38 Last Pain Intensity 9 03/04/23, 10:36 Last ORT Total Score 0 02/15/25, 02:01 Last ORT Risk Category Low Risk 02/15/25, 02:01 Ur Phencyclidine Scrn, (NEGATIVE) Negative 03/03/23, 17:24 Review of Systems ROS Status of ROS 10 or more systems reviewed and unremarkable except as noted in history and below [facility] Medical History (Updated 03/13/25 @ 19:38 by CARSON Mcdaniels) D-dimer, elevated ?R79.89 - Other specified abnormal findings of blood chemistry (ICD-10) Chest pain ?R07.9 - Chest pain, unspecified (ICD-10) Acute osteomyelitis of right foot ?M86.171 - Other acute osteomyelitis, right ankle and foot (ICD-10) Chronic ulcer of right foot ?L97.519 - Non-pressure chronic ulcer of other part of right foot with unspecified severity (ICD-10) Coronary artery disease ?I25.10 - Atherosclerotic heart disease of [place] coronary artery without angina pectoris (ICD-10) COPD (chronic obstructive pulmonary disease) ?J44.9 - Chronic obstructive pulmonary disease, unspecified (ICD-10) Hypertension ?I10 - Essential (primary) hypertension (ICD-10) Post-op bleeding Acute pain of right hip ?M25.551 - Pain in right hip (ICD-10) Foot osteomyelitis ?M86.9 - Osteomyelitis, unspecified (ICD-10) Ulcer of right foot with necrosis of bone ?L97.514 - Non-pressure chronic ulcer of other part of right foot with necrosis of bone (ICD-10) Hypocalcemia ?E83.51 - Hypocalcemia (ICD-10) Hypomagnesemia ?E83.42 - Hypomagnesemia (ICD-10) Sepsis ?A41.9 - Sepsis, unspecified organism (ICD-10) Wound of foot ?S91.309A - Unspecified open wound, unspecified foot, initial encounter (ICD-10) Abscess of right foot ?L02.611 - Cutaneous abscess of right foot (ICD-10) Anticoagulated ?Z79.01 - correction (current) use of anticoagulants (ICD-10) Diabetic infection of right foot ?E11.628 - Type 2 diabetes mellitus with other skin complications (ICD-10) ?L08.9 - Local infection of the skin and subcutaneous tissue, unspecified (ICD-10) Puncture wound of right foot ?S91.331A - Puncture wound without foreign body, right foot, initial encounter (ICD-10) Cellulitis of foot, right ?L03.115 - Cellulitis of right lower limb (ICD-10) Sepsis ?A41.9 - Sepsis, unspecified organism (ICD-10) CHF (congestive heart failure) ?I50.9 - Heart failure, unspecified (ICD-10) Migraine headache ?G43.909 - Migraine, unspecified, not intractable, without status migrainosus (ICD-10) Carpal tunnel syndrome ?G56.00 - Carpal tunnel syndrome, unspecified upper limb (ICD-10) Back pain ?M54.9 - Dorsalgia, unspecified (ICD-10) Arthritis ?M19.90 - Unspecified osteoarthritis, unspecified site (ICD-10) Restless leg ?G25.81 - Restless legs syndrome (ICD-10) GERD (gastroesophageal reflux disease) ?K21.9 - Gastro-esophageal reflux disease without esophagitis (ICD-10) High cholesterol ?E78.00 - Pure hypercholesterolemia, unspecified (ICD-10) Myocardial infarction ?I21.9 - Acute myocardial infarction, unspecified (ICD-10) Dementia ?F03.90 - Unspecified dementia, unspecified severity, without behavioral disturbance, psychotic disturbance, mood disturbance, and anxiety (ICD-10) CKD stage 4 due to type 2 diabetes mellitus ?E11.22 - Type 2 diabetes mellitus with diabetic chronic kidney disease (ICD-10) ?N18.4 - Chronic kidney disease, stage 4 (severe) (ICD-10) Hyperlipidemia ?E78.5 - Hyperlipidemia, unspecified (ICD-10) Polyp of prostate with urinary obstruction ?N40.1 - Benign prostatic hyperplasia with lower urinary tract symptoms (ICD-10) ?N13.8 - Other obstructive and reflux uropathy (ICD-10) Femoral artery stenosis ?I70.209 - Unspecified atherosclerosis of [place] arteries of extremities, unspecified extremity (ICD-10) Glaucoma ?H40.9 - Unspecified glaucoma (ICD-10) Carpal tunnel syndrome, bilateral ?G56.03 - Carpal tunnel syndrome, bilateral upper limbs (ICD-10) Gout ?M10.9 - Gout, unspecified (ICD-10) Chronic kidney disease ?N18.9 - Chronic kidney disease, unspecified (ICD-10) Weakness ?R53.1 - Weakness (ICD-10) Surgical History H/O foot surgery (08/10/23) ?Z98.890 - Other specified postprocedural states (ICD-10) S/P TURP (04/13/23) ?Z90.79 - Acquired absence of other genital organ(s) (ICD-10) H/O foot surgery (08/05/23) ?Z98.890 - Other specified postprocedural states (ICD-10) History of heart artery stent ?Z95.5 - Presence of coronary angioplasty implant and graft (ICD-10) History of spinal surgery ?Z98.890 - Other specified postprocedural states (ICD-10) History of colonoscopy ?Z98.890 - Other specified postprocedural states (ICD-10) History of carpal tunnel release ?Z98.890 - Other specified postprocedural states (ICD-10) History of cataract extraction ?Z98.49 - Cataract extraction status, unspecified eye (ICD-10) History of appendectomy ?Z90.49 - Acquired absence of other specified parts of digestive tract (ICD-10) History of heart artery stent ?Z95.5 - Presence of coronary angioplasty implant and graft (ICD-10) Family History Mother Family history of CHF (congestive heart failure) Family history of diabetes mellitus Family history of hypertension Grandfather Family history of CHF (congestive heart failure) Family history of diabetes mellitus Family history of hypertension Family history of myocardial infarction Grandmother Family history of hypertension Social History (Updated 02/15/25 @ 06:06 by Kimberley Engle RN) Within the past year, how often did you have a drink containing alcohol: 4 or more times a week Within the past year, how many standard drinks containing alcohol did you have on a typical day: 1 or 2 Within the past year, how often did you have six or more drinks on one occasion: never Total score: 0 Score interpretation: Questions 2 and 3 are 0. It can be assumed that the patient's drinking is below the recommended limits. However, please confirm the accuracy of the patient's alcohol intake over the last few months. Smoking status: Current every day smoker What tobacco products do you use: cigarettes Cigarettes per day: 20 Years smoked: 42 Smoking pack-years: 42.00 Nicotine containing products detail: Approx 1 pack QOD Second hand tobacco smoke exposure: No Non-prescribed substance use: denies use and cannabis (any form) Previous occupational history: DISABLED Known occupational exposures/hazards: No Highest level of school completed/degree received: high school graduate Are you now , , , , never or living with a partner: In a typical week, how many times do you talk on the telephone with family, friends, or neighbors: once per week How often do you get together with friends or relatives: once per week How often do you attend methodist or restorationist services: never Do you belong to any clubs or organizations such as methodist groups unions, fraternal or athletic groups, or school groups: no Total score: 1 Score interpretation: A score of less than or equal to 1 indicates the most socially isolated. Little interest or pleasure in doing things: not at all Feeling down, depressed, or hopeless: not at all Feel stressed/tense/nervous/anxious/difficulty sleeping: not at all Due to disability, difficulty making decisions: No Do you think of yourself as: straight/heterosexual Gender Identity: male Exam Narrative Exam Narrative: General: No distress, age-appropriate Skin: Warm, dry, no pallor. No rash. There are 2 small wounds on the dorsal aspect of the left foot. One wound is on the fifth digit, the second is just proximal to the fourth toe. The foot is swollen, but there is no surrounding erythema of the wounds or in the foot. There is no active drainage of either wound on exam. Head: Normocephalic, atraumatic. Neck: Supple, non-tender. Eye: Pupils are equal, round and EOMI. No scleral icterus. Ears, Nose, Mouth, and Throat: No nasal mucosal hypertrophy. Oral mucosa is moist, no posterior oropharynx erythema, uvula is mid-line Cardiovascular: Regular Rate and Rhythm without murmur, gallop or rub. Respiratory: No accessory muscle use or respiratory distress. Lungs are clear to auscultation, no wheezing, rales or rhonchi Chest Wall: no tenderness Musculoskeletal: Full ROM of all extremities, no calf or popliteal tenderness LLE. There is a BKA of RLE. DP pulse is obtained via Doppler LL ED. GI: Abdomen is soft, non-distended, non tender to palpation. No masses appreciated. No rebound, guarding, or rigidity noted. Neurological: A&O x4. No cranial nerve dysfunction observed. No truncal ataxia. Moves all extremities. Sensation intact. Psychiatric: Cooperative and interactive. Normal mood and affect. Constitutional Vital Signs, click to edit/add: Last Vital Signs Temp 98.2 F 03/13/25 18:28 Pulse 88 03/13/25 18:38 Resp 18 03/13/25 18:28 BP 142/87 H 03/13/25 18:28 Pulse Ox 100 03/13/25 18:28 O2 Del Method Room Air 03/13/25 18:28 Documenting provider has reviewed patient's vital signs: yes Course Vital Signs Vital signs: Vital Signs Temperature 98.2 F 03/13/25 18:28 Pulse Rate 71 03/13/25 18:28 Respiratory Rate 18 03/13/25 18:28 Blood Pressure 142/87 H 03/13/25 18:28 Pulse Oximetry 100 03/13/25 18:28 Oxygen Delivery Method Room Air 03/13/25 18:28 Temperature 98.2 F 03/13/25 18:28 Pulse Rate 88 03/13/25 18:38 Respiratory Rate 18 03/13/25 18:28 Blood Pressure 142/87 H 03/13/25 18:28 Pulse Oximetry 100 03/13/25 18:28 Oxygen Delivery Method Room Air 03/13/25 18:28 Medical Decision Making MDM Narrative Medical decision making narrative: This is a 59-year-old male that presented to the emergency department with complaints of 2 wounds that started to drain within the past few days on his left foot. He is very cautious as he has had a right BKA, peripheral artery disease and nlg-zvcgwsf-xnzyauepl type 2 diabetes. He was admitted in January for cellulitis of this foot after he had a small dorsal wound that got infected. He states that his left foot was [place] red yesterday but this has resolved today. He has had these wounds for few weeks now. He has previously been a patient at the wound center with Dr Elias and JERARDO Gomez. He denies fever, night sweats, or chills. On arrival patient is in no distress, vitals are hemodynamically stable. Patient is afebrile temperature 98.2. 100% O2 saturations on room air. There is a right BKA with no signs of swelling or erythema. The left foot has diffuse swelling, no erythema. There is a wound to the left fifth toe, and a wound just proximal to the fourth toe on the dorsum of the foot. There is no drainage on exam. There is no erythema surrounding these wounds. DP pulse was obtained by Doppler. CBC, BMP, and lactate ordered. X-ray left foot ordered to eval for any periosteal reaction, soft tissue gas, or bone destruction. Labs: CBC with no leukocytosis, WBC 8.6. BMP with creatinine 2.07, baseline appears to be around 2 with history of CKD stage III, BUN 22 also appears to be at baseline Lactate wnl Left Foot Xray: No acute osseous findings, nonspecific forefoot soft tissue swelling. I discussed results with patient and his significant other at bedside and plan for discharge home with doxycycline. Given the later hour and pharmacies are closed we will give him his first dose in the emergency department of doxycycline. We discussed strict return precautions fever, spreading redness or swelling around the wounds, foul-smelling drainage or increased drainage,etc. patient was discharged with a prescription for doxycycline 100 mg twice daily x 10 days with close follow-up with his PCP and the Wound Center. Differential Diagnosis Differential Diagnosis: Infected diabetic foot ulcer, osteomyelitis, PAD related nonhealing ulcer Lab Data Lab results reviewed: Yes I reviewed the patient's lab results Labs: Lab Results 03/13/25 Range/Units 18:55 WBC 8.6 (4.0-11.0) 10^3/uL RBC 5.90 (4.70-6.10) 10^6/uL Hgb 17.9 (14.0-18.0) g/dL Hct 51.5 (42.0-54.0) % MCV 87.3 (80.0-94.0) fL MCH 30.3 (25.9-34.0) pg MCHC 34.8 (29.9-35.2) g/dL RDW 13.4 (11.0-15.0) % Plt Count 121 L (150-450) 10^3/uL MPV 11.3 (9.5-13.5) fL Neut % (Auto) 62.7 (43.0-75.0) % Lymph % (Auto) 21.1 (20.5-60.0) % [place] % (Auto) 8.8 (1.7-12.0) % Eos % (Auto) 5.6 (0.9-7.0) % Baso % (Auto) 1.3 (0.2-2.0) % Neut # (Auto) 5.4 (1.4-6.5) 10^3/uL Lymph # (Auto) 1.8 (1.2-3.8) 10^3/uL [place] # (Auto) 0.8 (0.3-0.8) 10^3/uL Eos # (Auto) 0.5 (0.0-0.7) 10^3/uL Baso # (Auto) 0.1 (0.0-0.1) 10^3/uL Abs Immat Gran (auto) 0.04 H (0.00-0.03) 10^3/uL Imm/Tot Granulo (auto) 0.5 (0.0-0.5) % Sodium 139 (136-145) mmol/L Potassium 3.8 (3.5-5.1) mmol/L Chloride 102 (98-107) mmol/L Carbon Dioxide 28.0 (21.0-32.0) mmol/L Anion Gap 12.8 BUN 22.0 H (7.0-18.0) mg/dL Creatinine 2.07 H (0.70-1.30) mg/dL Est GFR ( Amer) 40 L (>=60 mL/min/1.73m^2) Est GFR (Non-Af Amer) 33 L (>=60 mL/min/1.73m^2) BUN/Creatinine Ratio 10.6 Glucose 197 H (74-106) mg/dL Lactate 1.5 (0.4-2.0) mmol/L Calcium 8.8 (8.5-10.1) mg/dL Imaging Data Left foot x-ray: Attestation: I have reviewed the pertinent imaging results. Radiologist's impression: ITS Impressions Foot X-Ray 03/13/25 18:49 IMPRESSION: NO ACUTE OSSEOUS FINDINGS. FOREFOOT SOFT TISSUE SWELLING, NONSPECIFIC. Impression dictated by: Omi Aldana M.D. 03/13/2025 7:26 PM Dictation Location: [place] [address] Electronically authenticated by: [id number] Y Date: 03/13/2025 19:26 Discharge Plan Discharge Chief Complaint: Extremity Problem, Nontraumatic Clinical Impression: Diabetic foot ulcer Patient Disposition: Home, Self-Care Time of Disposition Decision: 19:38 Condition: Good Mode of Transportation: Private Vehicle Prescriptions / Home Meds: New doxycycline hyclate 100 mg tablet 100 mg PO BID 10 Days Qty: 20 0RF No Action allopurinol 100 mg tablet 100 mg PO DAILY clonazepam 0.5 mg tablet 0.5 mg PO QAM magnesium oxide 400 mg (241.3 mg magnesium) tablet 400 mg PO DAILY hydroxyzine HCl 25 mg tablet 25 mg PO .QHS calcium carbonate-vitamin D3 [Calcium 500 With D] 500 mg-10 mcg (400 unit) tablet 1 tab PO DAILY ferrous sulfate 325 mg (65 mg iron) tablet 325 mg PO BID metoprolol tartrate 25 mg tablet 50 mg PO BID Rx Instructions: HOLD IF SPB <125 OR HR <70 ropinirole 0.5 mg tablet 0.5 mg PO TID valsartan-hydrochlorothiazide 80-12.5 mg tablet 1 tab PO .QD (DME) FreeStyle Jigar 2 Plus Sensor Device See Rx Instructions .ROUTE Rx Instructions: As directed Jardiance 10 mg tablet 10 mg PO DAILY metformin 1,000 mg tablet 1,000 mg PO BID aspirin 81 mg tablet 81 mg PO DAILY glimepiride 2 mg tablet 1 mg PO BID Rx Instructions: Do not take if your blood sugar drops below 130 Januvia 100 mg tablet 50 mg PO DAILY Qty: 0 0RF Jardiance 10 mg tablet 10 mg PO DAILY nitroglycerin 0.4 mg tablet, sublingual 0.4 mg sublingual Q5M PRN (Reason: chest pain) omeprazole 40 mg capsule,delayed release(DR/EC) 40 mg PO DAILY pregabalin 200 mg capsule 200 mg PO TID tamsulosin 0.4 mg capsule 0.4 mg PO BID atorvastatin 80 mg tablet 80 mg PO DAILY clopidogrel 75 mg tablet 75 mg PO DAILY Trulicity 0.75 mg/0.5 mL pen injector 0.75 mg subcut QWEEK Patient Comments: tuesdays amitriptyline 25 mg tablet 25 mg PO .qhs furosemide [Lasix] 40 mg tablet 40 mg PO DAILY budesonide-formoterol [Symbicort] 160-4.5 mcg/actuation HFA aerosol inhaler 2 inh inhalation BID Print Language: Amharic Instructions: Foot Ulcers in a Person with Diabetes (ED) Referrals: Jenaro Valadez DO [Primary Care Provider] - 1 week Sheri Hansen PA [Physician Tariff Publishing Agent] - As soon as possible
--- NOTE | 2025-03-13 18:49 | XR_ITS ---
[facility] [place] [id number] Patient Name: MYRA FELIPE MRN: [id number] date: 1965 Sex: M Assigned Patient Location: ER Current Patient Location: ER Accession/Order Number: [id number] Exam Date: 03/13/2025 19:00 Report Date: 03/13/2025 19:26 At the request of: CONSTANCE BYRD Procedure: XR foot LT min 3V LEFT FOOT - 3 views CLINICAL HISTORY: Foot wounds COMPARISON: Left MRI 12/16/2024 FINDINGS: No fractures or dislocation. Moderate soft tissue swelling identified along the forefoot. Afaa-st-whamoocq plantar and posterior calcaneal spurring. No definite osseous erosions. No radiopaque foreign body or soft tissue gas. XR/XR foot LT min 3V IMPRESSION: NO ACUTE OSSEOUS FINDINGS. FOREFOOT SOFT TISSUE SWELLING, NONSPECIFIC. Impression dictated by: Omi Aldana M.D. 03/13/2025 7:26 PM Dictation Location: [place] [address] Electronically authenticated by: [id number] Y Date: 03/13/2025 19:26
[2025-03-13 19:07] LABS: Hematocrit 51.5 % (42.0-54.0); Hemoglobin 17.9 g/dL (14.0-18.0); Immature Granulocytes Abs Auto 0.04 10^3/uL (0.00-0.03); Immature Granulocytes Pct Auto 0.5 % (0.0-0.5); Lymphocytes Absolute Auto 1.8 10^3/uL (1.2-3.8); Mean Corpuscular HGB Conc 34.8 g/dL (29.9-35.2); Mean Corpuscular Hemoglobin 30.3 pg (25.9-34.0); Mean Corpuscular Volume 87.3 fL (80.0-94.0); Platelet Count 121 10^3/uL (150-450); Red Blood Count 5.90 10^6/uL (4.70-6.10); White Blood Count 8.6 10^3/uL (4.0-11.0)
[2025-03-13 19:12] LABS: Anion Gap 12.8; Blood Urea Nitrogen 22.0 mg/dL (7.0-18.0); Calcium 8.8 mg/dL (8.5-10.1); Carbon Dioxide 28.0 mmol/L (21.0-32.0); Chloride 102 mmol/L (98-107); Estimated GFR (African America 40 (>=60 mL/min/1.73m^2); Estimated GFR (Non-African Ame 33 (>=60 mL/min/1.73m^2); Glucose 197 mg/dL (74-106); Potassium 3.8 mmol/L (3.5-5.1); Sodium 139 mmol/L (136-145)
[2025-03-13 19:21] LABS: Lactate/Lactic Acid 1.5 mmol/L (0.4-2.0)
[2025-03-13] MEDS: DOXYCYCLINE MONOHYDRATE 100 MG CAPSULE PO (20:02)
[2025-03-13 20:13] VITALS: BP 145/85; PULSE 75; O2SAT 99
== END 2025-03-13 20:13 | disposition home or self-care (01) ==
PROVIDERS: Physician Assistant; Emergency Provider Emergency Medicine; PCP Family Medicine
DX: E11.621 Type 2 diabetes mellitus with foot ulcer (principal); L97.529 Non-pressure chronic ulcer of other part of left foot with unspecified severity; E11.51 Type 2 diabetes mellitus with diabetic peripheral angiopathy without gangrene; E11.22 Type 2 diabetes mellitus with diabetic chronic kidney disease; Z89.511 Acquired absence of right leg below knee; E11.42 Type 2 diabetes mellitus with diabetic polyneuropathy; Z79.84 Long term (current) use of oral hypoglycemic drugs; Z79.85 Long-term (current) use of injectable non-insulin antidiabetic drugs; F17.210 Nicotine dependence, cigarettes, uncomplicated
CPT/HCPCS: 36415; 73630; 80048; 83605; 85025; 99285

== ENCOUNTER 2025-03-27 07:12 | Outpatient (OUT) | payer OTHER, SELFPAY ==
--- NOTE | 2025-03-27 07:00 | CA_ITS ---
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 Interpretive Statements Summary of the findings (s/p right below knee amputation): Left leg: MICHELLE= 0.73; TBI= 0.26. Doppler waveforms demonstrate monophasic flow at the posterior tibial and dorsalis pedis arteries. Segmental pressures: Segmental pressures suggest significant left inflow disease. Pulse volume recordings: PVRs at the left high thigh, below knee, and ankle levels show dampened waveforms. Conclusion: Left ankle-brachial indices are suggestive of reduced overall arterial flow at rest. Toe-brachial indices are suggestive of PAD. Segmental pressures show significant left inflow disease. Electronically Signed On 03-27-2025 19:36:33 EDT by KUNAL BUENO M.D.
--- OUTSIDE RECORDS SUMMARY | 2025-03-27 07:14 | XMS_ITS | Encounter Summary ---
Author Organization [employer] Address [id number] [address] 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 Name Role Phone Unavailable Primary Care Provider Unavailabl e Encounter Details DateTypeDepartmentCare Team (Latest Contact Info)Sjraxhfiuzm24/09/2025Telephone [facility] [place] [address] [place] [phone] Jess Aguilar CMA Social History Tobacco UseTypesPacks/DayYears UsedDateSmoking Tobacco: Every PlfBbkkqcaqlv508.5 Started: 10/05/1981Smokeless Tobacco: NeverAlcohol UseStandard Drinks/Week CommentsNot Currently0 (1 standard drink = 0.6 oz pure alcohol)[facility] Utilities AnswerDate RecordedIn the past 12 months has the [employer], gas, oil, or water [employer] threatened to shut off services in your home?No11/07/2023UDIT-CAnswer Date RecordedQ1: How often do you have a drink containing alcohol?2-4 times a month11/07/2023Q2: How many drinks containing alcohol do you have on a typical day when you are drinking?1 or Q3: How often do you have six or more drinks on one occasion?Never11/07/2023HQ-2AnswerDate RecordedTotal Score0 11/07/2023RAPARE - TransportationAnswerDate RecordedIn the past 12 months, has lack of transportation kept you from medical appointments or from getting medications?No11/07/2023In the past 12 months, has lack of transportation kept you from meetings, work, or from getting things needed for daily living?No 11/07/2023Housing InstabilityAnswerDate RecordedAre you worried or concerned that in the next two months you may not have stable housing that you own, rent or stay in as a part of a household?No4ChildcareAnswerDate Recorded CnpkvloxgVypfscm83/10/2019EmploymentAnswerDate RecordedEmploymentUnknown 11/12/2018Hunger ScreeningAnswerDate RecordedWithin the past 12 months we worried whether our food would run out before we got money to buy more.Never True02/29/2024Within the past 12 months the food we bought just didn't last and we didn't have money to get more.Never True02/29/2024Sex and Gender Information ValueDate RecordedSex Assigned at BirthNot on fileLegal MytDobi3701/06/2015 1:04 PM EDTGender IdentityNot on fileSexual OrientationNot on filedocumented as of this encounter Miscellaneous Notes * Telephone Encounter - Jess Aguilar CMA - 03/13/2025 1:10 PM EDT Lm for patient to call and get his testing done so that we do not have to cancel his appt on the . documented in this encounter Plan of Treatment DateTypeDepartmentCare Team (Latest Contact Info)Bteccecrupz25/30/2025 11:00 AM EDTOffice Visit [facility] [place] [address] [place] [address] Padmini Montes MD [address], [address] [phone] documented as of this encounter Goals GoalPatient Goal TypeAssociated ProblemsRecent ProgressPatient-Stated?Author Patient is planning to transition back to SNF at discharge. Chandrika Weber LSW Note: Evaluation of progress towards goal: Patient is planning to transition back to SNF at discharge. documented as of this encounter Visit Diagnoses Not on filedocumented in this encounter Additional Health Concerns AssessmentNoted TimePHQ-9 Depression Total Score: 8:40 PM EDT documented as of this encounter
--- OUTSIDE RECORDS SUMMARY | 2025-03-27 07:15 | XMS_ITS | Clinical Summary ---
Author Organization [employer] Address [id number] [address] [place] [address] Care Team Providers Care 911 Telecommunicator Name Role Phone Unavailable Primary Care Provider Unavailabl e Allergies Active AllergyReactionsCriticalityNoted DateCommentsAcetaminophenVomitingLow 07/31/2023 Other Reaction(s): Vomiting Isosorbide DinitrateOther (See Comments)Low08/04/2014 Headache LatexDermatitis,Itching,YkfyKrb7103/27/2023Oxycodone-Dahjdtakmktto21/10/2017 PenicillinsAnaphylaxis,GbeymJgiv18/02/2403Xefkxmogunxw21/10/2017 Darvocet Medications MedicationSigDispense QuantityRefillsLast FilledStart DateEnd DateStatus aspirin 81 mg Take 1 tablet (81 mg total) by mouth in the morning.10/06/2023ctive atorvastatin (LIPITOR) 80 mg tablet Take 1 tablet (80 mg total) by mouth in the morning.10/06/2023ctive amitriptyline (ELAVIL) 25 mg tablet Take 1 tablet (25 mg total) by mouth nightly.09/03/2023ctive clopidogreL (PLAVIX) 75 mg tablet Take 1 tablet (75 mg total) by mouth in the morning.Active glimepiride (AMARYL) 2 mg tablet Take 1 tablet (2 mg total) by mouth in the morning and 1 tablet (2 mg total) before bedtime.Active isosorbide mononitrate (IMDUR) 30 mg 24 hr tablet Take 1 tablet (30 mg total) by mouth daily.Active metFORMIN (GLUCOPHAGE) 1000 mg tablet Take 1 tablet (1,000 mg total) by mouth every 12 (twelve) hours.Active nitroglycerin (NITROSTAT) 0.[address] 1 tablet (0.4 mg total) under the tongue every 5 (five) minutes as needed for chest pain.Active omeprazole (PriLOSEC) 40 mg capsule Take 1 capsule (40 mg total) by mouth in the morning.Active rOPINIRole (REQUIP) 1 mg tablet Take 1 tablet (1 mg total) by mouth in the morning and 1 tablet (1 mg total) at noon and 1 tablet (1 mg total) before bedtime.Active AJOVY AUTOINJECTOR 225 mg/1.5 mL Inject 1.5 mL (225 mg total) under the skin every 30 (thirty) days.07/18/2023 Active empagliflozin (JARDIANCE) 10 mg tablet tablet Take 1 tablet (10 mg total) by mouth in the morning.Active SITagliptin phosphate (JANUVIA) 100 mg tablet Take 1 tablet (100 mg total) by mouth in the morning.Active ONETOUCH ULTRA2 METER misc 1 Unit by subconjunctival route in the morning.08/17/2023ctive ONETOUCH ULTRA TEST strip 1 strip by other route every morning before breakfast.08/16/2023ctive albuterol (PROVENTIL HFA;VENTOLIN HFA) 90 mcg/actuation inhaler Inhale 2 puffs in the morning and 2 puffs before bedtime.Active ubrogepant 100 mg tablet Take 100 mg by mouth daily as needed.Active tiotropium (SPIRIVA WITH HANDIHALER) 18 mcg per inhalation capsule Place 1 capsule (18 mcg total) into inhaler and inhale in the morning.11/23/2022 Active DULoxetine (CYMBALTA) 60 mg capsule Take 1 capsule (60 mg total) by mouth in the morning.Active ferrous sulfate 325 (65 FE) mg tablet Take 1 tablet (325 mg total) by mouth in the morning.Active ONETOUCH DELICA PLUS LANCET 33 gauge misc Inject 1 strip under the skin in the morning and 1 strip before bedtime. 08/16/2023ctive acetaminophen (TYLENOL EXTRA STRENGTH) 500 mg tablet Take 2 tablets (1,000 mg total) by mouth every 8 (eight) hours as needed for pain or fever.Active albuterol (PROAIR HFA) 90 mcg/actuation inhaler Inhale 2 puffs every 4 (four) hours as needed.11/23/2022ctive tamsulosin (FLOMAX) 0.4 mg capsule Take 1 capsule (0.4 mg total) by mouth in the morning and at bedtime.06/26/2023 Active tiZANidine (ZANAFLEX) 4 mg capsule Take 1 capsule (4 mg total) by mouth as needed in the morning and 1 capsule (4 mg total) as needed at noon and 1 capsule (4 mg total) as needed in the evening for muscle spasms.11/23/2022ctive pregabalin (LYRICA) 200 mg capsule Take 1 capsule (200 mg total) by mouth in the morning and 1 capsule (200 mg total) at noon and 1 capsule (200 mg total) before bedtime.09/28/2023ctive dulaglutide 0.75 mg/0.5 mL pen injector Inject 0.5 mL (0.75 mg total) under the skin once a week.07/12/2023ctive Active Problems ProblemNoted DateDiagnosed DateCigarette oiyufq0902/28/2025 Assessment & Plan (02/28/2025 5:59 PM EDT): Counseled him on smoking cessation for at least 4 minutes Critical limb ischemia of left lower extremity with cryvusaj83/25/2025 Assessment & Plan (02/28/2025 6:00 PM EDT): CTA aorta with runoff PVR Continue aspirin 81 mg atorvastatin 80 mg and Plavix 75 mg. Hx of right BKA02/27/2025ltered mental vibdpj7503/15/20241013Pefbqi06/11/2024trial yhwfhmjplpmk28/11/2024igarette nicotine dependence with nicotine-induced vmnwocgk38/11/2856Tnebwca47/11/2024hronic back pain03/15/2024Encounter for orthopedic aftercare following surgical yihmicajeo03/25/2024Muscle spasm 02/28/2024igarette ymgvgh2601/18/2024 Assessment & Plan (01/18/2024 9:04 AM EDT): Counseled him on smoking cessation at length. He is willing to quit. Symptomatic fslvjofrjpe70/29/2024iabetic polyneuropathy associated with type 2 diabetes nlozmxbf57/21/2024hest pain in adult11/10/2023hronic kidney disease 11/10/2023rescendo dodhnb7011/10/2023iabetic nephropathy associated with secondary diabetes /07/5093Mmqttshccrtf75/07/2024Leg edema11/10/2023 Jehrvwvaf65/27/5219Twvqcipwyefg93/27/2024 Overview (10/30/2023): Will need to get back off opioids Encourage use of tylenol and pregabalin Neck pain10/30/2023Head ache10/30/2023Gross qgmuqacfb13/27/2024Heart attack 10/30/2023Heart lmnmoe4610/30/20230016Moivgxlbt70/27/1717Yzivmz58/27/2024Urinary lrzyqistc17/27/2024Muscle weakness (generalized)10/30/2023Other abnormalities of gait and payppirl18/27/2024eripheral arterial hpwiwtw6910/30/2023therosclerosis of [place] coronary artery of [place] heart without angina clwkapaq66/03/2024 Pyogenic inflammation of bone10/06/2023hronic obstructive pulmonary disease 10/06/2023igarette smoker motivated to quit10/06/2023 Assessment & Plan (11/30/2023 9:19 AM EDT): Counseled on smoking cessation for at least 3 minutes Assessment & Plan (10/18/2023 8:52 AM EDT): Counseled in length willing to quit. BPH with obstruction/lower urinary tract kzbyhtns78/03/2024Gastroesophageal reflux kcjvomf7910/06/2023estless leg sqxmambh59/03/2024Heart oqvklmp3410/06/2023 Gxzpvoep83/10/1386Zdsnxvljlnackn40/25/2021arpal tunnel syndrome, right upper limb1Paresthesia and pain of both upper xljbjemrzsj50/20/2021 Overview (03/15/2024): Last Assessment & Plan: *06/14/2023 Shana Mclaughlin Patient with paresthesia, cramps, weakness, and contracture of the bilateral hands that has been occurring for the past 4 year after being in a coma for renal failure. The symptoms have progressivelyworsened over time. In addition the patient has sensory loss of the lower extremities upon exam reportedly occurring for the past several years as well. EMG of the bilateral upper extremities 09/29/20which revealed a remote C8 radiculopathy on the [...] due to urinary issues. Paresthesia of bilateral legs09/22/2020Mixed pfkvkukncofwcr68/12/2016 Overview (10/30/2023): Cont home atorva Sleep apnea08/04/20141791Qrkaditlnzlj92/03/2014 Overview (10/30/2023): Continue home amlodipine 10mg QD Metoprolol 50mg bid Lisinopril on hold Monitor BP regularly Resolved Problems ProblemNoted DateDiagnosed DateResolved DateDelayed surgical wound healing of foot amputation stumpressure ulcer of right ankle, stage 3 ritical limb ischemia of right lower extremity with pwgcpead40 Assessment & Plan (01/18/2024 9:03 AM EDT): Right below-knee amputation. Will do it here at [place]. Assessment & Plan (12/21/2023 8:57 AM EDT): We did iliofemoral endarterectomy and femoral above-knee bypass. He has some residual tibial occlusive disease. I discussed with him doing right lower extremity angiogram and intervention. Will do this close to [facility]. Assessment & Plan (10/18/2023 8:32 AM EDT): PVR and CTA abdomen and plevis with runoff Abscess of right footStatus post partial amputation of right footType 2 diabetes mellitus with stage 4 chronic kidney disease, without long-term current use of ekiwufh73/acterial offelv47/12/2023 Encounters DateTypeDepartmentCare MferSbpbdscayui72/09/2025Telephone [facility] [place] [address] [place] [address] Jess Aguilar CMA 02/27/2025 10:50 AM EDTOffice Visit [facility] [place] [address] [place] [address] Padmini Montes MD 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 ([facility]) (Primary Dx); Hx of right BKA (CMS-HCC); Cigarette osqrnq3402/27/20250788Pttmvd86/31/2025Telephone [facility] [place] [address] [place] [address] Baylee Chu CMA from Last 3 Months Immunizations ImmunizationAdministration DatesNext DueInfluenza, Im Trivalent Preservative 01/14/2019Influenza, Injectable, quadrivalent (PF)04/02/2018,03/07/2016 Influenza, Zsjvcoxlcvp73/12/2019Pneumococcal Znavxjujmfqraf45/19/2016 Social History Tobacco UseTypesPacks/DayYears UsedDateSmoking Tobacco: Every NkiAkbvziyzzh588.5 Started: 10/05/1981Smokeless Tobacco: Never Tobacco Cessation:Ready to Q uit: Not Asked; Counseling Given: Not Answered Alcohol UseStandard Drinks/WeekCommentsNot Currently0 (1 standard drink = 0.6 oz pure alcohol)[facility] UtilitiesAnswerDate RecordedIn the past 12 months has the electric, gas, oil, or water company threatened to shut off services in your home?No11/07/2023UDIT-CAnswerDate RecordedQ1: How often do you have a drink containing alcohol?2-4 times a month11/07/2023Q2: How many drinks containing alcohol do you have on a typical day when you are drinking?1 or Q3: How often do you have six or more drinks on one occasion?Never11/07/2023HQ-2 AnswerDate RecordedTotal Vzbsu248RAPARE - TransportationAnswerDate RecordedIn the past 12 months, has lack of transportation kept you from medical appointments or from getting medications?No11/07/2023In the past 12 months, has lack of transportation kept you from meetings, work, or from getting things needed for daily living?No11/07/2023Housing InstabilityAnswerDate RecordedAre you worried or concerned that in the next two months you may not have stable housing that you own, rent or stay in as a part of a household?No11/07/2023 ChildcareAnswerDate XovmqfyrDbioqblzbCsqdyhd24/10/2019EmploymentAnswerDate DdavlasoUnrjrvlkuaFqenwir75/10/2019Hunger ScreeningAnswerDate RecordedWithin the past 12 months we worried whether our food would run out before we got money to buy more.Never True02/29/2024Within the past 12 months the food we bought just didn't last and we didn't have money to get more.Never True02/29/2024Sex and Gender InformationValueDate RecordedSex Assigned at BirthNot on fileLegal Sex Male01/06/2015 1:04 PM EDTGender IdentityNot on fileSexual OrientationNot on file Last Filed Vital Signs Vital SignReadingTime TakenCommentsBlood Xfappaow688/8109 10:51 AM EDT Htszw3883 10:51 AM MZVAojvyewvnlr00.7 ??C (98 ??F)03/19/2024 5:26 PM EDT Respiratory Ifyh822803/19/2024 5:26 PM EDTOxygen Phgomvepxg74%02/27/2025 10:51 AM EDTInhaled Oxygen Concentration--Cahpfh64.9 kg (207 lb)02/27/2025 10:51 AM EDT Twtqli469.9 cm (6')02/27/2025 10:51 AM EDTBody Mass Index28.0702/27/2025 10:51 AM EDT Plan of Treatment DateTypeDepartmentCare Team (Latest Contact Info)Bxfuzpnxtfl61/30/2025 11:00 AM EDTOffice Visit [facility] [place] [address] [place] [address] Padmini Montes MD [address], [address] [phone] Health MaintenanceDue DateLast DoneCommentsDiabetic Ophthalmology Exam1965 Statin Use: Cmwjbtkykvtykg34/27/1966Statin Use: Nnnudnsz51/27/1966Adult BMI Follow Up Plan1983Diabetic Foot Exam1983DTaP,Tdap and Td Vaccines (1 - Tdap)1984Zoster (Shingles) Vaccine (1 of 2)2015Depression Knlmjstxk23/OVID-19 Vaccine ( - season)2025 11/13/2020, 10/23/2020Influenza Domslaw58/05/2019, 01/14/2019, 04/02/2018, Additional history existsTobacco Fubehieoo81/26/965202/dult BMI Khofgyyvv93 Goals GoalPatient Goal TypeAssociated ProblemsRecent ProgressPatient-Stated?Author Patient is planning to transition back to SNF at discharge. Chandrika Weber LSW Note: Evaluation of progress towards goal: Patient is planning to transition back to SNF at discharge. Medical Devices ImplantedTypeAreaManufacturerDevice IdentifierShelf Expiration DateModel / Serial / LotGraft Vsc 50cm 6mm Allison Thnwl Hep Propaten Ptfe Rem Rng - [id number] - [id number] Implanted:Qty: 1 on 11/08/2023 [facility]: [id number] / [id number] / Description:RIGHT FEMORAL ARTERYStent Vsc Epic 10mm 100mm 120cm 6fr Rdpq Otw Slf Xpd Gw - [id number] Implanted:Qty: 1 on 11/07/2023 by [facility]i [facility]entBO[facility] SCIENTIFIC/PERIPHERAL [id number]/ [id number] / / [id number] Insurance Advance Directives * Full Code (Latest Code Status on File) Date ActivatedDate InactivatedComments11/07/2023 4:31 PM11/14/2023 9:31 PM
--- OUTSIDE RECORDS SUMMARY | 2025-03-27 07:15 | XMS_ITS | Clinical Summary ---
Author Organization [facility] Address [address] [place] [address] Phone Care Team Providers Care Annealer Name Role Phone Jenaro Valadez DO Primary Care Provider [phone] Allergies Active AllergyReactionsCriticalityNoted UavcGpibbipePmmyyTqxmfug43/23/2023 MvkckjzavalLaztknokdfeVflb46/23/2023 Medications MedicationSigDispense QuantityRefillsLast FilledStart DateEnd DateStatus albuterol 90 mcg/actuation inhaler Inhale 2 puffs 2 times a day.Active atorvastatin (Lipitor) 80 mg tablet Take 1 tablet (80 mg) by mouth once daily at bedtime.Active clopidogrel (Plavix) 75 mg tablet Take 1 tablet (75 mg) by mouth once daily.Active empagliflozin (Jardiance) 10 mg Take 1 tablet (10 mg) by mouth once daily.Active glimepiride (Amaryl) 2 mg tablet Take 1 tablet (2 mg) by mouth 2 times a day.Active metFORMIN (Glucophage) 1,000 mg tablet Take 1 tablet (1,000 mg) by mouth every 12 hours.Active nitroglycerin (Nitrostat) 0.[address] under the tongue.11/03/2021ctive pregabalin (Lyrica) 200 mg capsule Take 1 capsule (200 mg) by mouth 3 times a day.Active rOPINIRole (Requip) 1 mg tablet Take 1 tablet (1 mg) by mouth 3 times a day.Active SITagliptin phosphate (Januvia) 100 mg tablet Take 1 tablet (100 mg) by mouth once daily.Active amitriptyline (Elavil) 100 mg tablet Take 1 tablet (100 mg) by mouth once daily.09/03/2023ctive DULoxetine (Cymbalta) [address] capsule Take 1 capsule (60 mg) by mouth once daily. Do not crush or chew.Active ferrous sulfate, 325 mg ferrous sulfate, tablet Take 1 tablet by mouth once daily.Active insulin lispro (HumaLOG) 100 unit/mL injection Inject under the skin. Take as directed per insulin instructions.Active omeprazole OTC (PriLOSEC OTC) 20 mg EC tablet Take 2 tablets (40 mg) by mouth 2 times a day before meals. Do not crush, chew, or split.Active acetaminophen (Tylenol) 500 mg tablet Take by mouth every 8 hours if needed for mild pain (1 - 3).Active ascorbic acid (Vitamin C) 500 mg tablet Take 1 tablet (500 mg) by mouth once daily.Active sildenafil (Viagra) 100 mg tablet Take 1 tablet (100 mg) by mouth once daily as needed for erectile dysfunction. Active tamsulosin (Flomax) 0.4 mg 24 hr capsule Take 1 capsule (0.4 mg) by mouth 2 times a day.Active dulaglutide (Trulicity) 0.75 mg/0.5 mL pen injector Inject 0.75 mg under the skin 1 (one) time per week.Active metoprolol succinate XL (Toprol-XL) 25 mg 24 hr tablet Indications:Coronary artery disease involving [place] coronary artery of [place] heart without angina pectorisTake 1 tablet (25 mg) by mouth once daily. Do not crush or chew. 90 tablet ctive furosemide (Lasix) 40 mg tablet Indications:Localized edemaTake 1 tablet (40 mg) by mouth once daily. 90 tablet 5Active aspirin 81 mg EC tablet Indications:Hyperlipidemia, unspecifiedTake 1 tablet (81 mg) by mouth once daily. 90 tablet 5Active magnesium oxide (Mag-Ox) 400 mg tablet Indications:PalpitationsTake 1 tablet (400 mg) by mouth once daily.12/26/2024 Active Active Problems ProblemNoted DateDiagnosed DateCAD (coronary artery disease)01/01/2024OPD (chronic obstructive pulmonary disease)01/01/2024Shortness of tghtom2001/01/2024 PVD (peripheral vascular disease)01/01/2024Symptomatic kyppafbhiop56/29/2024 Encounter for pre-operative cardiovascular hptgeanmc32/21/2024Former smoker 10/24/2023iabetes ditlqwlw97/23/2023History of PTCA1Hyperlipidemia 03/27/20234623Gzhpgwdivoea45/23/2023 Resolved Problems ProblemNoted DateDiagnosed DateResolved DateEssential rccsiaiqskdy13/29/2024 01/01/2024 Encounters DateTypeDepartmentCare EaogLbvoqgjudaw26/14/2025Scanned Document [facility] [address] [place] [address] Scanning, Generic Provider 02/15/2025Scanned Document [facility] [address] [place] [address] Scanning, Generic Provider 02/14/2025Scanned Document [facility] [address] [place] [address] Scanning, Generic Provider 02/07/2025Results Follow-Up [address] [place] [phone] Iris Purvis MD Nuclear Stress Test02/05/2025 8:05 AM EDT - 02/05/2025 11:59 PM EDTHospital Encounter [place] [address] [phone] Discharge Disposition: Home02/05/2025 8:05 AM EDT - 02/05/2025 11:59 PM EDT Hospital Encounter at [facility] [address] [phone] Discharge Disposition: Home02/05/2025 8:05 AM EDT - 02/05/2025 11:59 PM EDT Hospital Encounter at [facility] [address] [phone] Discharge Disposition: Home02/05/2025 8:05 AM EDT - 02/05/2025 11:59 PM EDT Hospital Encounter [facility] [address] [phone] Discharge Disposition: Home02/05/2025 8:00 AM EDT - 02/05/2025 8:04 AM EDT Hospital Encounter [facility] [address] [address] Chest pain, unspecified type Discharge Disposition: Home02/05/20256579Yzwmkt17/24/2025Refill [address] [phone] Marybel Chairez LPN Hyperlipidemia, unspecified; Palpitationsfrom Last 3 Months Family History Medical HistoryRelationNameCommentsDiabetesMotherHypertensionMotherbypass graft mechanical complicationMotherRelationNameStatusCommentsMother Social History Tobacco UseTypesPacks/DayYears UsedDateSmoking Tobacco: FormerCigarettesQuit: mokeless Tobacco: NeverAlcohol UseStandard Drinks/WeekCommentsNever0 (1 standard drink = 0.6 oz pure alcohol)Sex and Gender InformationValueDate RecordedSex Assigned at BirthNot on fileLegal EgdZemp29/26/2022 1:33 AM EST Gender IdentityNot on fileSexual OrientationNot on file Last Filed Vital Signs Vital SignReadingTime TakenCommentsBlood Elqfhhbh186/8609 9:05 AM EDT Bqrwy602502/05/2025 9:05 AM EDTTemperature--Respiratory Rate--Oxygen Saturation-- Inhaled Oxygen Concentration--Zhscis17.7 kg (211 lb)01/17/2024 12:34 PM EDT Yehmid330.9 cm (6')01/17/2024 12:34 PM EDTBody Mass Index28.6208 12:34 PM EDT Plan of Treatment Health MaintenanceDue DateLast DoneCommentsCT Ifajnjswlaxm33/27/1966Colonoscopy 1965Colorectal Cancer Bppjhzzyu29/27/1966Creatinine Level1965 Diabetes: Hemoglobin A1C1965Diabetes: Urine Protein Qkyckrugd56/27/1966 FIT-DNA (Cologuard)1965FIT1965HIV Gfuzmqqvj58/27/1966Lipid Panel 1965Potassium Level1965 6847Vxrabydgrxetg50/27/1966Yearly Adult Physical 1965MMR Vaccines (1 of 1 - Standard series)1966Diabetes: Retinopathy Asnovzbro51/27/1976Hepatitis C Xggoyfrpg94/27/1984Hepatitis B Vaccines (1 of 3 - 19+ 3-dose series)1984PSA Prostate Cancer Ncuykruwe05/27/2016Zoster Vaccines (1 of 2)2015Pneumococcal Vaccine (2 of 2 - PCV)03/05/2019 03/05/2018, 02/22/2016Influenza Vaccine (#1)/05/2019, 04/02/2018, 03/05/2018, Additional history existsCOVID-19 Vaccine (3 - 2024- season) 506/04/2021, 0257Kortvaalggxmgk24/08/978694/01/2025, 03/03/2024, 4DTaP/Tdap/Td Vaccines (2 - Td or Tdap)/08/2023HIB Vaccines Aged OutNo longer eligible based on patient's age to complete this topicHPV VaccinesAged OutNo longer eligible based on patient's age to complete this topic Hepatitis A VaccinesAged OutNo longer eligible based on patient's age to complete this topicIPV VaccinesAged OutNo longer eligible based on patient's age to complete this topicMeningococcal VaccineAged OutNo longer eligible based on patient's age to complete this topicRotavirus VaccinesAged OutNo longer eligible based on patient's age to complete this topic Procedures Procedure NamePriorityDate/TimeAssociated DiagnosisCommentsSTRESS TEST, REGADENOSON W MYOCARDIAL PERFUSION SPECT (MULTI STUDY)Zikkrnk5902/05/2025 10:18 AM EDT Chest pain, unspecified type YSWKUCCHZPXGDT79/08/2025 from Last 3 Months or Most Recently Relevant to Health Maintenance Results * STRESS TEST, REGADENOSON W MYOCARDIAL PERFUSION SPECT (MULTI STUDY) (02/05/2025 10:18 AM EDT)Anatomical RegionLateralityModalityNfostoria city hospital Medicine Specimen (Source)Anatomical Location / LateralityCollection Method / Volume Collection TimeReceived Time02/05/2025 6:06 PM EDT02/05/2025 6:06 PM EDT Impressions 02/05/2025 6:05 PM EDT Normal Lexiscan Myoview cardiac perfusion stress test. No evidence of ischemia or myocardial infarction by perfusion imaging. Normal left ventricular systolic function, ejection fraction 61%. When compared to a study from 2022, no significant interval changes were seen. ? Signed by: Iris Purvis 02/05/2025 6:05 PM Dictation workstation: ?? [id number] Narrative 02/05/2025 6:05 PM EDT Interpreted By: Iris Purvis and Giannuzzi Michael STUDY: MYOCARDIAL PERFUSION STRESS TEST WITH LEXISCAN ?? Performing facility: [facility], [address] [place] [address], [address], [address] Provider: ??[facility] Purvis MD, [facility] PCP: ??Dr. Wm Valadez Supervising provider: ??Lui Schmidt DO, FACC ?? INDICATION: Signs/Symptoms: ?? ,R07.9 Chest pain, unspecified ?? HISTORY: Gender: ??M; Age: ??59 y/o ; Height: ??HT 182.9 cm cm; Weight: ?? WT 95.709 kg kg. ?? Chest Pain; ??CAD; ??High Cholesterol; ??Diabetes; ??SOB; ??COPD; Quit smoking 4 years ago. ?? Cardiac catheterization on 2017. ??PTCA on 2017. ?? COMPARISON: Previous nuclear testing completed at [facility]. ? ACCESSION NUMBER(S): [id number] ?? ORDERING CLINICIAN: IRIS PURVIS ?? TECHNIQUE: ONE DAY protocol. Stress injection: Date:02-05-25, 34.5 mCi of Myoview IV 20 seconds after rapid injection of Lexiscan. Rest injection: Date: 02-05-25, 9.8 mCi of Myoview IV at rest. The patient had a rapid injection of ??0.4 mg of Lexiscan IV over 10 seconds. Imaging was performed by ??gated tomographic technique. Reason for Lexiscan: ??BKA ?? STRESS TEST DATA: Resting heart rate was 71 BPM. Resting blood pressure was 120/86 mmHg. Peak blood pressure was 108/78 mmHg. Peak heart rate was 80 BPM. Aminophylline given 50mg IV. TEST TERMINATED DUE TO: ??Protocol completed ?? FINDINGS: STRESS TEST RESULTS: ?? Resting electrocardiogram revealed sinus rhythm with first-degree AV block incomplete right bundle branch block. There were no significant ischemic ECG changes or dysrhythmias. The patient did not have chest pains/symptoms during procedure. There was a normal recovery phase. ?? IMAGING RESULTS: ?? Image quality was good. Rest and stress tomographic images were reviewed and revealed normal perfusion without evidence of ischemia, myocardial infarction, or left ventricular dilatation with stress. Overall left ventricular systolic function appeared to be normal without regional wall motion abnormalities. Ejection fraction was 61%. TID is 1.06 and is normal. There was no evidence of ??attenuation artifact. ?? Procedure Note Iris Purvis MD - 02/05/2025 Interpreted By: Iris Purvis and Giannuzzi Michael STUDY: MYOCARDIAL PERFUSION STRESS TEST WITH LEXISCAN Performing facility: [facility], [address] [place] [address], [address] [facility], [place] [id number] [facility] Provider: Iris Purvis MD, FACC PCP: Dr. Wm Valadez Supervising provider: Lui Schmidt DO, [facility] INDICATION: Signs/Symptoms: ,R07.9 Chest pain, unspecified HISTORY: Gender: M; Age: 59 y/o ; Height: HT 182.9 cm cm; Weight: WT 95.709 kg kg. Chest Pain; CAD; High Cholesterol; Diabetes; SOB; COPD; Quit smoking 4 years ago. Cardiac catheterization on 2017. PTCA on 2017. COMPARISON: Previous nuclear testing completed at [facility]. ACCESSION NUMBER(S): [id number] ORDERING CLINICIAN: IRIS PURVIS TECHNIQUE: ONE DAY [...] Iris Purvis 02/05/2025 6:05 PM Dictation workstation: [id number] Authorizing ProviderResult TypeResult StatusIris Purvis MDCV STRESS PROCEDURESFinal Result * Echocardiogram (10/10/2024) Narrative 10/10/2024 Ordered by an unspecified provider. Authorizing ProviderResult TypeResult StatusGeneric Provider ScanningCV ECHO PROCEDURESFinal Result from Last 3 Months or Most Recently Relevant to Health Maintenance Insurance Care Teams Team MemberRelationshipSpecialtyStart DateEnd Date Jenaro Valadez DO [address] [place] [address] PCP - GeneralFamily Medicine11/04/24
--- OUTSIDE RECORDS SUMMARY | 2025-03-27 07:15 | XMS_ITS | Clinical Summary ---
Author Organization [facility] Address [address] [place] [address] Care Team Providers Care Gut Dropper Name Role Phone Franklin Link Nickolas BRICENO Unavailable [phone] Jenaro Valadez DO Primary Care Provider [phone] Carlos A Bolanos Unavailable [phone] Allergies Active AllergyReactionsCriticalityNoted DateCommentsIsosorbide MononitrateOther: See Oeerbsik82/02/2015 Headache SbbnutnukljHpbvzhwfwqj06/02/2014 Medications MedicationSigDispense QuantityRefillsLast FilledStart DateEnd DateStatus metFORMIN 1,000 mg tablet Take 1 tablet by mouth twice daily with meals.ctive Pregabalin (LYRICA) 200 mg capsule Take 1 capsule by mouth three times daily.ctive glimepiride (AMARYL) 2 mg tablet Take 2 mg by mouth twice daily with meals.Active rOPINIRole (REQUIP) 1 mg tablet Take 1 mg by mouth three times daily.Active aspirin, enteric coated (ASPIRIN, ENTERIC COATED) 81 mg EC tablet Take 1 tablet by mouth once daily. 90 tablet Active cyclobenzaprine (FLEXERIL) 5 mg tablet Take 1 tablet by mouth three times daily as needed for Muscle Spasm. 30 tablet Active traMADol (ULTRAM) 50 mg tablet Take 1 tablet by mouth every 6 hours as needed for Pain. 30 tablet Active COMPOUNDED PRESCRIPTION Dispense ---Walker Diagnosis: Physical weakness and inability to perform ADL without assistance after hospitalization due to acute metabolic encephalopathy 1 Each Active losartan-hydrochlorothiazide (HYZAAR) 100-25 mg per tablet Take 1 tablet by mouth once daily. 90 tablet Active metoprolol succinate ER (TOPROL XL) 50 mg 24 hr tablet Take 1 tablet by mouth once daily. 90 tablet Active ranolazine SR (RANEXA) 1,000 mg Tb12 Take 1 tablet by mouth twice daily. 180 tablet Active atorvastatin (LIPITOR) 80 mg tablet Take 1 tablet by mouth once daily. 90 tablet Active clopidogrel (PLAVIX) 75 mg tablet Take 1 tablet by mouth once daily. 90 tablet Active Omeprazole 40 mg capsule Take 40 mg by mouth once daily. 06/22/2017Active latanoprost (XALATAN) 0.005 % ophthalmic solution Use 1 Drop in both eyes daily at bedtime. 06/22/2017Active metoprolol tartrate, short acting, (LOPRESSOR) 100 mg tablet Take 100 mg by mouth twice daily.Active nitroglycerin sublingual (NITROQUICK) 0.4 mg SL tablet Dissolve 0.4 mg under the tongue every 5 minutes as needed.Active amLODIPine (NORVASC) 5 mg tablet Take 5 mg by mouth once daily. 07/15/2017Active Active Problems Patient Care Coordination No te Formatting of this note migh t be different from the original. ASSESSMENT & PLAN Mr. Feldman is a 50 year old male with significant past medical history of hypertension, dyslipidemia, CAD s/p AFRICA x 3 to RCA (last 07/2015), restless leg syndrome, diabetes mellitus type II and CKD III(baseline serum creatinine ~1.6) who presents as a transfer from [facility] for ongoing evaluation and treatment of altered [...] overnight - CT A/P w/ colitis. Remains onPO Amiodarone for A Fib 02/27: No acute [...] to monitor QTc (prolonged to 480-500). Will repleteK+ and Mg+ to maintain K > 4 and Mg >2 Amio loaded x2. Discontinue amiodarone today # Disposition: To be transferred to [facility], skilled for acute rehab. Neuro # [...] with 1 hour of IHD --> Continued totrend downwards during the hospital stay - EEG [...] 5 days) - Continue Vanc and Agustin (TELECOM NETWORK MANAGER dosing) as well as Acyclovir (for possible [...] Restarted home metoprolol with holding parameters - YJFZY2HTCL - 3, not on AC at this [...] and HIV). F/u HIV and serum syphilis work-up - Echo 02/25 - No vegetation Renal/Electrolytes [...] GI PPx: Protonix Code status: Full Code ProblemNoted DateDiagnosed DateObesity, Class I, BMI 30-34.9 E66.904 Mixed iirimezcedtrux58/12/2016 Overview (07/28/2015): Cont home atorva Swzupqa8908/04/2014Sleep apnea08/04/2014CAD S/P percutaneous coronary angioplasty 11/05/2013 Overview (03/07/2016): CAD (s/p AFRICA to mPDA and PLV of RCA in 11/2013 and recent PCI on 07/2015 Plan - asa and plavix - atorva 40 mg (due to drug interaction with ranalazine) - metoprolol 50 mg bid - ranolazine Rylsobefrzkw46/03/2014 Overview (02/13/2016): Continue home amlodipine 10mg QD Metoprolol 50mg bid Lisinopril on hold Monitor BP regularly Tobacco abuse11/05/2013Diabetes type 2, uncontrolledRestless leg syndrome Overview (07/28/2015): Cont home ronipirole and lyrica Fibromyalgia Overview (02/16/2016): Will need to get back off opioids Encourage use of tylenol and pregabalin GERD (gastroesophageal reflux disease)CAD (coronary artery disease)Hydrocele ArthritisKidney infectionNeck painRenal failureSmokerChronic anticoagulation Overview (05/05/2016): plavix Resolved Problems ProblemNoted DateDiagnosed DateResolved QvbiGzielegkpzydhz53/03/201610/03/2016 Overview (03/07/2016): At presentation patient had AMS and needed intubation to protect airway as patient had copious secretions. Possible causes: Uremic encephalopathy vs Sepsis vs Cardiogenic shock vs TELECOM NETWORK MANAGER infection vs TELECOM NETWORK MANAGER disorder Patient came in with S urea>100 [...] PT. Discharge to SNF. Atrial fibrillation with rapid ventricular ahrvgjgy27 Overview (03/07/2016): Patient developed A fib with RVR during early hospitalization. Was HD unstable at time. Uremic. Did not respond to BB or calcium channel lamont. Loaded with amiodarone with resolution. A: Resolved. Not in A fib. Currently on metoprolol for HTN. P: Follow up intermittently with EKG at PCP office Bpekid35Somnolence Overview (03/07/2016): At presentation patient had AMS and needed intubation to protect airway as patient had copious secretions. Possible causes: Uremic encephalopathy vs Sepsis vs Cardiogenic shock vs TELECOM NETWORK MANAGER infection vs TELECOM NETWORK MANAGER disorder Patient came in with S urea>100 [...] Conservative management with PT. Discharge to SNF. Thctojmotjh16Pain of right upper iitsndqar59 Overview (02/16/2016): Persistent, reproducible right arm pain. Started suddenly on morning of admission Very unlikely cardiac in etiology CT Cervical spine No fracture of cervical spine.Slight dextroconvex scoliosis otherwise normal alignment.Right neuralforaminal narrowing at C7/T1. There could be mass effect upon the exiting right C8 nerve root. Milddisc bulge at C6/C7 eccentric to the left MRI 02/15/16: Small eccentric disc protrusion at C6-7 without significant impact on the cord. Mild bony foraminal narrowing as detailed above. Plan - appreciate final spine recs - d/c or transfer service - need to decrease opioids; move to tylenol, tramadol and flexeril Right arm painAKI (acute kidney injury) Overview (03/07/2016): - Baseline SCr 1.4-1.6. SCr on presentation was 7.75 now at b/l 1.3 (CKD 3 at baseline) -Patient had elevated CK and myoglobin at presentation -UA showed muddy brown casts consistent with ATN -Needed CVVHD for 2 days in MICU -Recovery with fluid and antibiotic support - Avoid nephrotoxins, trend Cr Right leg llcynlla06Unstable jomkzp57 Overview (07/28/2015): Patient is now s/p AFRICA to RCA. Currently chest pain free. - asa and plavix - atorva 80 mg - metoprolol 100 mg bid - will add lisinopril - smoking cessation - cardiac rehab DM (diabetes mellitus) Overview (02/13/2016): A1c 5.9. -Hold oral meds -ISS with meals and bedtime Immunizations ImmunizationAdministration DatesNext Dueinfluenza (IIV4) vaccine, age 6 mo - 64 yr, quadrivalent, PF (AFLURIA, FLUARIX, FLULAVAL, FLUZONE)03/07/2016pneumococcal polysaccharide (PPV23) vaccine, 23 valent (PNEUMOVAX 23)02/22/2016 Family History Medical HistoryRelationCommentsNoneBrotherNoneFatherHeartMaternal Grandfatherage 52 heart failureDiabetesMotherHeartMotherRelationStatusCommentsBrother FatherMaternal GrandfatherMother Social History Tobacco UseTypesPacks/DayYears UsedDateSmoking Tobacco: Every DayCigarettes0.5 47.4Started: 11/18/1977Smokeless Tobacco: FormerQuit: 11/04/2013lcohol Use Standard Drinks/WeekCommentsNo0 (1 standard drink = 0.6 oz pure alcohol)Area Deprivation IndexAnswerDate RecordedNational Score (1-100), lower number is lower riskNot on file05/10/2020State Score (1-10), lower number is lower riskNot on file05/10/2020Data from: https://www.neighborhoodatlas.medicine.[facility]/. Last address used for calculationNot on file05/10/2020Sex and Gender Information ValueDate RecordedSex Assigned at BirthNot on fileLegal AdhBqfy14/02/2012 9:56 AM ESTGender IdentityNot on fileSexual OrientationNot on fileOccupationIndustry Job Start DateJob End DateRetiredNot on fileNot on fileNot on file Last Filed Vital Signs Vital SignReadingTime TakenCommentsBlood Yseyaifo083/7004 9:28 AM EDT Skcyw9824 9:28 AM EDGYqljiawyalo35.8 ??C (98.3 ??F)03/07/2016 2:00 PM EDTRespiratory Iyls9423 9:28 AM EDTOxygen Kfugqxhknf99%09/11/2017 9:28 AM EDTInhaled Oxygen Concentration--Tklouc205.2 kg (254 lb)09/11/2017 9:28 AM KLIIpybja472.9 cm (6')09/11/2017 9:28 AM EDTBody Mass Index34.45009/11/2017 9:28 AM EDT Plan of Treatment Health MaintenanceDue DateLast DoneCommentsAnxiety Alkjnlwvm27/27/1984Depression Xgtqovedj21/27/1984Hepatitis C Nzlcxujqr23/27/1984DTaP,Tdap,Td Vaccine (1 - Tdap)1984CT Ovmhckucvejn16/27/2011Cologuard (FIT-DNA)2010Colonoscopy 2010Colorectal Cancer Oudkxpava22/27/2011Fecal Occult Blood2010 Prostate Cancer Screening Gxfscloszx01/27/0474Mmpvazxtofxji10/27/2011Shingrix Vaccine (1 of 2)2015Pneumococcal Vaccine: 50+ (2 of 2 - PCV)02/21/2017 02/22/2016Diabetes Gncwbwqwe89, 03/06/2016, 03/05/2016, Additional history existsLipid Xoavwkgja48Covid-19 Vaccine ( season)2025Influenza Vaccine (#1)HIV XmyzyktxaXznzsivmx15/24/2016 Procedures Procedure NamePriorityDate/TimeAssociated DiagnosisCommentsCOMPREHENSIVE METABOLIC MJTKTYYGN81/03/2016 7:19 AM EDT HIV 1/2 COMBO WITH REFLEX TO ABRNMRRVAVIAWXEJZEF81/24/2016 9:41 AM EDT LIPID PANEL, WLMWLQTQytxaqw13/11/2016 4:43 AM EDT from Last 3 Months or Most Recently Relevant to Health Maintenance Results * (ABNORMAL) COMP METABOLIC PANEL (03/07/2016 7:19 AM EDT)ComponentValueRef RangeTest MethodAnalysis TimePerformed AtPathologist SignatureProtein, Total 6.76.3 - 8.0 g/dL03/07/2016 8:[address] [facility] LABORATORYAlbumin 3.2(L)3.9 - 4.9 g/dL03/07/2016 8:[address] [facility] Calcium9.28.5 - 10.5 mg/dL03/07/2016 8:[address] [facility] LABORATORYBilirubin, Total0.50.2 - 1.3 mg/dL03/07/2016 8:[address] [facility] LABORATORYAlkaline Pvzzjotysuo035(H)36 - 108 U/L1 8:[address] [facility] CKEBBRGUDCMGM6975 - 40 U/L1 8:28 AM EDT [facility] ISDQNKKFTYRkaxtiq962(H)74 - 99 mg/dL03/07/2016 8:[address] [facility] HUYBWYRLGPBEE024 - 24 mg/dL03/07/2016 8:28 AM EDT [facility] LABORATORYCreatinine1.37(H)0.73 - 1.22 mg/dL03/07/2016 8:[address] [facility] ZGVVYULNGYIcbepr001643 - 144 mmol/L1 8:[address] [facility] LABORATORYPotassium4.43.7 - 5.1 mmol/L 03/07/2016 8:[address] [facility] VBXMCSNGVKJbrtqzqq2790 - 105 mmol/L1 8:[address] [facility] ISNOOWZKKXTK46460 - 30 mmol/L1 8:[address] [facility] LABORATORYAnion Frt091 - 18 mmol/L1 8:[address] [facility] FWEMFKQKSYRDY1954 - 54 U/L 03/07/2016 8:[address] [facility] LABORATORYeGFR->60 03/07/2016 8:[address] [facility] LABORATORYeGFR-All Other Races55. 03/07/2016 8:[address] [facility] MA[facility] LABORATORYComment: eGFR (Estimated GFR) Units of measure: mL/min/1.73 [...] eGFR may not accurately reflect actual GFR. Specimen (Source)Anatomical Location / LateralityCollection Method / Volume Collection TimeReceived TimeBlood specimen (specimen)BLOOD SPECIMEN / Unknown 03/07/2016 7:19 AM EDT1 7:20 AM EDT Narrative Authorizing ProviderResult TypeResult StatusHashim (Hist) Maria Luz HERRERALABORATORY Final ResultPerforming OrganizationAddressCity/State/ZIP CodePhone Number [facility] [address] [place] [address] * HIV 1,2 COMBO (AG/AB) (02/27/2016 9:41 AM EDT)ComponentValueRef RangeTest MethodAnalysis TimePerformed AtPathologist SignatureHIV 12 Combo (Ag/Ab)Non ReactiveNon Czaduvem44/24/2016 8:39 PM [facility] Comment: (NOTE) HIV Information: ??[place] Rev. Code 3701.243(E): This information has been [...] release of HIV test results or diagnoses. Specimen (Source)Anatomical Location / LateralityCollection Method / Volume Collection TimeReceived TimeBlood specimen (specimen)BLOOD SPECIMEN / Unknown 02/27/2016 9:41 AM EDT02/27/2016 10:04 AM EDT Narrative Authorizing ProviderResult TypeResult StatusDaniel [place] DOLABORATORYFinal ResultPerforming OrganizationAddressCity/State/[facility] CodePhone Number [facility] [address] [place] [address] * (ABNORMAL) LIPID PANEL BASIC (02/14/2016 4:43 AM EDT)ComponentValueRef Range Test MethodAnalysis TimePerformed AtPathologist WtewolpbiTvdibfpbmiwx721(H)30 - 149 mg/dL02/14/2016 6:[address] [facility] LABORATORYCholesterol, Xjfkw480154 - 199 mg/dL02/14/2016 6:[address] [facility] HDL Sbzouplqexd11(L)>45 mg/dL02/14/2016 6:[address] [facility] LABORATORYVLDL Mtdgmdhupcp432 - 40 mg/dL02/14/2016 6:[address] [facility] LABORATORYLDL Cholesterol, Mavvvaijxc6945 - 129 mg/dL02/14/2016 6:[address] [facility] LABORATORYFasting PoxaZoabviwdzl91/11/2016 6:[address] [facility] LABORATORYTC:HDL Ratio5.50(H)1.00 - 5.00002/14/2016 6:[address] [facility] LABORATORYLDL:HDL Ratio2.910.50 - 3.55 02/14/2016 6:[address] [facility] LABORATORYNon HDL Oupoahrvvue1852 - 159 mg/dL02/14/2016 6:[address] [facility] LABORATORYSpecimen (Source)Anatomical Location / LateralityCollection Method / VolumeCollection TimeReceived TimeBlood specimen (specimen)BLOOD SPECIMEN / Ihukvdi4802/14/2016 4:43 AM EDT02/14/2016 4:44 AM EDT Narrative Authorizing ProviderResult TypeResult StatusObie Leos MDLABORATORYFinal ResultPerforming OrganizationAddressCity/State/ZIP CodePhone Number [facility] [address] [place] [address] from Last 3 Months or Most Recently Relevant to Health Maintenance Insurance Advance Directives * DNR/Comfort Care (Latest Code Status on File) Date ActivatedDate InactivatedComments02/29/2016 11:07 AM02/29/2016 11:08 AM QuestionAnswerCommentsDNR Order Discussed With:* Surrogate Decision Maker Care Teams Team MemberRelationshipSpecialtyStart DateEnd Date Jenaro Valadez DO [facility] [place] [address] PCP - GeneralFamily Medicine10/26/16 Franklin Link DO ReferringOrthopedics10/26/16 Carlos A Bolanos [address] [place] [address] Primary Staff PhysicianCardiology08/21/18
--- OUTSIDE RECORDS SUMMARY | 2025-03-27 07:15 | XMS_ITS | Clinical Summary ---
Author Organization [facility] Address [address] [place] [address] Care Team Providers Care Manager Environmental Health And Safety Name Role Phone Jenaro Valadez DO Unavailable Jenaro Valadez DO Primary Care Provider [phone] Allergies Active AllergyReactionsCriticalityNoted UmuxFhpcmdibMtesmvpfimtnyCev45/26/2024 Other Reaction(s): Vomiting Isosorbide MlortfxZgqtsZnk66/02/2015 Headache LatexDermatitis,Itching,Rash,IpkgeprAar82/23/3538LgqpznsiwOtt27/26/2024 Other Reaction(s): Vomiting PenicillinsAnaphylaxis,UxqvtIbnk90/02/2014Oxycodone-Viaiqeqkhcvrp30/10/2017 Ofbllfdwstlx93/10/2017 Darvocet AwxicrgujmBcppiZfs08/26/2024 Medications MedicationSigDispense QuantityRefillsLast FilledStart DateEnd DateStatus tamsulosin (Flomax) 0.4 MG 24 hr capsule Take 1 capsule (0.4 mg total) by mouth nightly.06/26/2023ctive dulaglutide (Trulicity) 0.75 MG/0.5ML solution pen-injector Inject 0.5 mL (0.75 mg total) under the skin once a week.07/12/2023ctive sildenafil (Viagra) 100 MG tablet TAKE 1 TABLET BY MOUTH EVERY DAY XOYGTA7805/16/2023ctive omeprazole (PriLOSEC) [address] capsule 1 capsule 30 minutes before morning meal Orally Once a dayActive Spiriva Respimat 2.5 MCG/ACT inhaler INHALE 2 PUFFS BY MOUTH ONCE DAILY12/20/2022ctive empagliflozin (Jardiance) 10 MG Take 1 tablet (10 mg total) by mouth in the morning.Active nitroglycerin (Nitrostat) 0.[address] 1 tablet (0.4 mg total) under the tongue every 5 (five) minutes as needed for chest pain.Active pregabalin (Lyrica) 200 MG capsule TAKE 1 CAPSULE BY MOUTH THREE TIMES A DAYActive metoprolol tartrate (Lopressor) 100 MG tablet Take 100 mg by mouth twice daily.Active metFORMIN (Glucophage) 1000 MG tablet Take 1 tablet (1,000 mg total) by mouth every 12 (twelve) hours.Active glimepiride (Amaryl) 2 MG tablet Take 1 tablet (2 mg total) by mouth in the morning and 1 tablet (2 mg total) before bedtime.Active SITagliptin (Januvia) 100 MG tablet Take 1 tablet (100 mg total) by mouth in the morning.Active clopidogrel (Plavix) 75 MG tablet Take 1 tablet (75 mg total) by mouth in the morning.Active aspirin 81 MG EC tablet Take 1 tablet (81 mg total) by mouth in the morning.06/16/2023ctive atorvastatin (Lipitor) 80 MG tablet Take 1 tablet (80 mg total) by mouth in the morning.10/06/2023ctive valsartan-hydroCHLOROthiazide (Diovan-HCT) 160-12.5 MG tablet TAKE 1 TABLET BY MOUTH EVERY DAY FOR 90 DAYS05/05/2023ctive acetaminophen (Tylenol) 500 MG tablet Take 2 tablets (1,000 mg total) by mouth every 8 (eight) hours as needed for pain or fever.Active albuterol HFA 90 mcg/act inhaler Inhale 2 puffs in the morning and 2 puffs before bedtime.Active ascorbic acid (Vitamin C) 500 MG tablet Take 1 tablet (500 mg) by mouth once daily.Active Blood Glucose Monitoring Suppl (ONE TOUCH ULTRA 2) w/Device kit USE TO TEST BLOOD SUGARS ONCE A DAY08/17/2023ctive ferrous sulfate 325 (65 Fe) MG tablet Take 1 tablet (325 mg total) by mouth in the morning.Active Ajovy 225 MG/1.5ML auto-injector Inject 1.5 mL (225 mg total) under the skin every 30 (thirty) days.07/18/2023 Active OneTouch Ultra Test test strip 1 strip by other route every morning before breakfast.08/16/2023ctive HYDROcodone-acetaminophen (Taylor) 5-325 MG tablet 12/12/2023ctive Insulin Lispro 100 UNIT/ML solution Inject under the skin. Take as directed per insulin instructions.Active isosorbide mononitrate ER (Imdur) 30 MG 24 hr tablet Take 1 tablet (30 mg total) by mouth daily.07/28/2023ctive Lancets (mon.kiTouch Delica Plus Jyaufy62I) [facility] 12/12/2023ctive loperamide (Imodium A-D) 2 MG tablet Take 1 tablet (2 mg) by mouth 4 times a day as needed for diarrhea.Active magnesium oxide (Mag-Ox) 400 MG tablet 1 tablet (400 mg) 3 times a day.Active rOPINIRole (Requip) 1 MG tablet Take 1 tablet (1 mg total) by mouth 3 (three) times a day.Active Ubrogepant 100 MG tablet Take 100 mg by mouth daily as needed.Active DULoxetine (Cymbalta) [address] capsule Take 1 capsule (60 mg total) by mouth in the morning.Active amitriptyline (Elavil) 100 MG tablet Indications:Nonintractable headache, unspecified chronicity pattern, unspecified headache typeTAKE 1 TABLET BY MOUTH EVERYDAY AT BEDTIME 90 tablet ctive Active Problems ProblemNoted DateDiagnosed UqdwYooazabj61/10/6913Evrznyzcuthozn44/25/2021arpal tunnel syndrome, right upper limb10/02/2020aresthesia and pain of both upper dvrvoclrrks43/20/2021 Assessment & Plan (12/17/2023 8:08 PM EDT): [...] due to urinary issues. Paresthesia of bilateral legs09/22/2020 Immunizations ImmunizationAdministration DatesNext DueInfluenza, Azsenfxuiql64/12/2019 Influenza, injectable, quadrivalent, preservative free04/02/2018,03/07/2016 Pneumococcal Polysaccharide BQAK8850 Family History Medical HistoryRelationNameCommentsAlzheimer's diseaseMotherDiabetesMotherHeart diseaseMotherVascular diseaseMotherRelationNameStatusCommentsMother Social History Tobacco UseTypesPacks/DayYears UsedDateSmoking Tobacco: Never AssessedSex and Gender InformationValueDate RecordedSex Assigned at BirthNot on fileLegal Sex Male08/17/2022 6:50 PM EDTGender IdentityNot on fileSexual OrientationNot on file Last Filed Vital Signs Vital SignReadingTime TakenCommentsBlood Raatlrzt148/70006/14/2023 8:20 AM EST Pulse--Temperature--Respiratory Rate--Oxygen Saturation--Inhaled Oxygen Concentration--Iijcde07.9 kg (218 lb)06/14/2023 8:20 AM NFZXkngnb851.8 cm (5' 10 )06/14/2023 8:20 AM ESTBody Mass Index31.28006/14/2023 8:20 AM EST Plan of Treatment Not on file Insurance [address] [place] [address] Care Teams Team MemberRelationshipSpecialtyStart DateEnd Date Jenaro Valadez DO PCP - External PCP03/05/23 Jenaro Valadez DO PCP - Yzujnpg62/8/24
--- OUTSIDE RECORDS SUMMARY | 2025-03-27 07:19 | XMS_ITS | CCD ---
Author Organization [facility] Care Team Providers Care Re Etcher Name Role Phone Teresa Lynch Unavailable Unavailable Unavailable Teresa Lynch Unavailable Amina Fagan Unavailable Judd Verona Unavailable Doris Barnes Unavailable DO Teresa Lynch Primary Care Provider [phone] JERARDO Mclaughlin Attending Provider DO Teresa Lynch Attending Provider ELAINE ., DUARTE Attending Unavailable ELAINE ., DUARTE Admitting Unavailable CONOR, DR LYSSA Blum Consulting Unavailable RORY, DR EASON Primary Care Unavailable DUARTE MÁRQUEZ [...] Unavailable DO Teresa Lynch Primary Care Provider [phone] MD Abdullahi Wilson Emergency Provider DO Teresa Lynch Primary Care Provider MD Abdullahi Wilson Emergency Provider JERARDO Mclaughlin Attending Provider JERARDO Mclaughlin Referring Provider LINDSEY Soto Attending Provider DO Teresa Lynch Primary Care Provider [phone] Teresa Lynch DO Primary Care Provider [phone] MIKE MONTES Attending Unavailable PAULA SOTO Referring Unavailable SIMONMIKE PENNINGTON Admitting Unavailable SIMONMIKE Attending Unavailable ONLY), [facility] (INPATIENT Consult ing Unavailable DERISO, ROSIE C Referring Unavailable MAAME RUCKER Referring Unavailable DERISO, ROSIE Snehal Referring Unavailable DO Teresa Lynch Primary Care Provider Mike Montes Admitting Unavailable Mike Montes Attending Unavailable Mike Montes Referring Unavailable MD Elan Antonio Attending Unavaila ble Mike Montes Consulting Unavailable Mike Montes Consulting Unavailable Mike Montes Consulting Unavailable MD Mike Montes Admitting Unavailable MD Mike Montes Consulting Unavailable MD Mike Montes Attending Unavailable MD Mike Montes Referring Unavailable SimonMike pennington Consulting Unavailable SimonMike pennington Consulting Unavailable SimonMike pennington Admitting Unavailable SimonMike pennington Consulting Unavailable SimonMike pennington Attending Unavailable Mike Montes Referring Unavailable ROWE, Yeyo Blum Attending Unavailable SOLEDAD, Yeyo Blum Attending Unavailable MD Mike Montes [...] MD Mike Weathers Referring Unavailable Simon, Mike FMary Admitting Unavailable Simon, Merlynamed F. Consulting Unavailable Simon, Mike F. Referring Unavailable Raulito Gilliland Attending Unavailable Simon, Merlynamed F. Consulting Unavailable Simon, Merlynamed F. Consulting Unavailable LINDSEY Soto Attending Provider MD Kait Dan Emergency Provider DO Teresa Lynch Primary Care Provider MD João Powell Admit Provider MD João Powell Attending Provider MD Kait Dan Emergency Provider [phone] DO Teresa Lynch Primary Care Provider MD João Powell Admit Provider MD João Powell Attending Provider [phone] MD Lyssa Sharpe Other Provider MD Mike Burleson Other Provider LINDSEY Soto Attending Provider [phone] MD Kait Dan Emergency Provider DO Teresa Lynch Primary Care Provider MD João Powell Admit Provider MD João Powell Attending Provider MD Lyssa Sharpe Other Provider MD Mike Burleson Other Provider DO Bonilla Rubin Emergency Provider [phone] DO Luther Dozier Other Provider MD Job James Other Provider MD Remberto Ervin Attending Provider DO Scottie Bonilla Emergency Provider DO Jacoby Luther M Other Provider MD Job James Other Provider MD Remberto Ervin Attending Provider [phone] Kait Dan MD Emergency Provider Teresa Lynch DO Primary Care Provider Andre HERRERA, João Admit Provider Andre HERRERA, João Attending Provider Lyssa Sharpe MD Other Provider Mike Burleson MD Other Provider Scottie BRICENO, Bonilla Emergency Provider [phone] Jacoby BRICENO, Luther Sarika Other Provider Jacob HERRERA, Job Other Provider [...] Provider Teresa Lynch DO Primary Care Provider [phone] Negro Hu MD Attending Provider [phone] Francisco Duncan MD Emergency Provider Marge Andino MD Admit Provider Sina HERRERA, Marge Attending Provider Maximiliano HERRERA, Kevon Baum Attending Provider Gracia HERRERA, Amina Other Provider Angelica KURTZ, Jez Martin Emergency Provider [phone] Abdullahi Canchola DO Admit Provider Abdullahi Canchola [...] Provider Shaheed Barboza MD Other Provider Gabby [facility], Maryann Simmons Other Provider Teresa Lynch DO Primary Care Provider [phone] Teresa Lynch DO Attending Provider [phone] Maurice Francis MD Other Provider Teresa Lynch Primary Care Unavailable Mike Burleson Attending Unavailable Mike Burleson Admitting Unavailable Teresa Lynch Primary Care Unavailable Abdullahi Canchola Attending Unavailable Abdullahi Canchola Admitting Unavailable Elle Monique Consulting Unavailable Elle Monique Consulting Unavailable Danyell Schmidt Consulting Unavailable Pascale Arnold Consulting Unavailable Raulito Inman Consulting Unavail able Bernard De La Cruz Consulting Unavailable Cash Rosaels Consulting Unavailab Dolores Cleaning Consulting Unavailable Conde, Jeanie Consulting Unavailable Simon, Andrew Naолегeb Consulting Unavailab Shaheed Quinonez Consulting Unavailable Maryann Pierre Consulting Unavailable Kuns, Teresa Primary Care Unavailable Marge Andino Admitting Unavailable Amina Fagan Consulting Unavailable Kevon Viera Attending Unavailable Kuns, [...] Hu Admitting Unavailable Teresa Lynch Attending Unavailable Kuns, Teresa Admitting Unavailable Kuns, Teresa Primary Care Unavailable Norris Faganiz Consulting Unavailable Maurice Francis Consulting Unavailable Teresa Lynch DO Primary Care Provider Francisco Duncan MD Emergency Provider Marge Andino MD Admit Provider Kevon Viera MD Attending Provider Amina Fagan MD Other Provider Jez Dominguez PA-C Emergency Provider Abdullahi Canchola DO Admit Provider Abdullahi Canchola DO Attending Provider Tereas Lynch DO Attending Provider Maurice Francis MD Other Provider BERNARD DE LA CRUZ Attending Unavailable TERESA LYNCH Primary Care Unavailable Unavailable Primary Care Provider Unavailprachi e Teresa Lynch DO Primary Care Provider PASCALE ARNOLD Referring Unavailable TERESA LYNCH Primary Care Unavailable PASCALE ARNOLD Referring Unavailable TERESA LYNCH P Primary Care Unavailable SIMON, MOHAMED F Attending Unavailable MARYBEL VANG Attending Unavailable Yeyo ROWE Attending Unavailable MARYBEL VANG Attending Unavailable Yeyo ROWE Attending Unavailable Allergies Allergy ClassificationReported Allergen(s)Allergy TypeDate of OnsetReaction(s) Facility (20 sources)natural latex rubber; Translations: [LATEX]Allergy to substance (finding)73-86-5169Llammcz (finding), Eruption of skin (disorder)[facility] (20 sources)Penicillins; Translations: [Penicillins]Allergy to drug (finding) 97-75-4846Niknackmfbten reaction (disorder)[facility] (20 sources)Acetaminophen / oxyCODONEDrug Xanujeb06-26-5226djseemkhMnhie Coast [employer] Other (20 sources)tamsulosin; Translations: [TAMSULOSIN]Drug Tkbkmqv48-39-6645onhnb [facility] (20 sources)PENICIILINPropensity to adverse reactionsSWELLING OF AIRWAYSwedish Medical [facility] [employer] Other (20 sources)Acetaminophen; Translations: [ACETAMINOPHEN]Drug Bxfsmcb59-50-0928 VomitingFirSouthwest General Health Center (20 sources)oxyCODONE; Translations: [Oxycodone]Drug Mlobpkn84-08-7713NuiudnrhSalem [facility] Medical Center (1 source)PenicillinsDrug allergy (disorder)60-59-2724Bzr [facility] (20 sources)Penicillin G; Translations: [penicillin G benzathine]Drug Allergy [facility] (12 sources)Penicillin; Translations: [Penicillin]Drug Allergyanaphylaxis, Anaphylactoid reaction (disorder)[facility] (20 sources)LatexAllergy to hjgugjfvq76-75-0382Xunfdry, Dermatitis, Itching, RashUnOhioHealth Berger Hospital (20 sources)PenicillinsDrug Ipvaaxz37-71-9956Tevmmzxycmv, [facility] (17 sources)Isosorbide; Translations: [ISOSORBIDE MONONITRATE]Drug Allergy 05-53-5133Rrebm (See Comments)[facility] (2 sources)Acetaminophen / oxyCODONE; Translations: [OXYCODONE-ACETAMINOPHEN] Drug Korwftv09-35-7646[facility] (8 sources)Isosorbide DinitrateDrug Bmlsloi26-72-5820Tdqwo, Other (See Comments) [facility] (1 source)LatexPropensity to adverse gumdddedl70-50-2239Pkgjvykmku, Itching, Rash, UnknownNOMS Healthcare (1 source)PenicillinsDrug Slbkprrlsbs87-65-3049Kqkypfmlcuv, HivesNOMS Healthcare (9 sources)Propoxyphene; Translations: [PROPOXYPHENE]Drug Vlcbhvs31-14-1232[facility] (1 source)LatexDrug allergy (disorder)37-47-1060HlurkmjgfT[facility]carawas Hospital [facility] (1 source)PenicillinsDrug allergy (disorder)75-01-4581FiaxucuhoTuscarawas Hospital [facility] (1 source)tamsulosinDrug Yqipjhq33-18-6113QyfnfyqhtTuscarawas Hospital [facility]ository (8 sources)PenicillinsPropensity to adverse reactions to vpsz66-63-3393 Anaphylaxis, [facility] (1 source)Isosorbide Dinitrate; Translations: [ISOSORBIDE DINITRATE]Drug Allergy 51-56-1884BifYdrsin Repository Medications Current Medications MedicationDrug Class(es)DatesSig (Normalized)Sig (Original)acetaminophen 325 mg / HYDROcodone bitartrate 5 mg oral tablet (20 sources)Opioid AgonistStart: 59-93-0679Ilkzx: 06-11-2024 End: 28-04-9711Oziaz: 06-11-2024 End: 56-94-6347ltor 1 tablet by mouth every four to six hours as needed for pain Hydrocodone-Acetaminophen 5-325 mg tablet Discontinued 1 TAB PO EVERY 4-6 HOURS as needed for pain 6 2 July 16, 2024 August 12, 2024 12:27pmStart: 07-26-2023 End: 33-50-2097Tycrj: 07-26-2023 End: 69-29-7611trgt 1 tablet by mouth four times daily as neededHydrocodone- Acetaminophen 5-325 mg tablet Discontinued TAB PO July 26, 2023 1:00am March 03, 2024 2:28pm FreeTextSi tablet Orally QID PRN; Note: Source Status: Refill; Refills: 0; Provider: Rory Eason PStart: 36-72-9524xukz 1 tablet by mouth four times daily as neededHYDROcodone-Acetaminophen 5-325 MG 1 tablet Orally QID PRN Apr, ActiveStart: 63-24-0596czwe 1 tablet by mouth every twelve hoursHYDROcodone-Acetaminophen 5-325 MG 1 tablet as needed Orally every 12 hrs Nov, ActiveStart: 20-55-4330yaop 1 tablet by mouth every six hoursStart: 13-77-3309udoy 1 tablet by mouth every six hoursHYDROcodone- Acetaminophen 5-325 MG 1 tablet as needed Orally every 6 hrs Apr, Active Start: 10-50-6263lecl 1 tablet by mouth every six hoursHYDROcodone-Acetaminophen 5-325 MG 1 tablet as needed Orally every 6 hrs Feb, ActiveStart: 77-34-4055ahns 1 tablet by mouth every six hoursStart: 07-24-2019 End: 96-53-2704Yjtqe: 07-24-2019 End: 09-04-1826reuf 1 tablet by mouth every six hours as needed for pain Hydrocodone-Acetaminophen 5-325 mg tablet Discontinued 1 TAB PO Q6H as needed for Pain July 24, 2019 1:00am July 14, 2020 12:39pmStart: 10-10-2014 [place] 325 mg-5 mg oral tablet 1 tab(s), Oral, q4hr for pain, 12 tab(s), Refill(s) 0 Start Date: 10/10/14 Status: Mexgsucfzx618101 200 actuat albuterol 0.09 mg/actuat metered dose inhaler (20 sources)beta2-Adrenergic AgonistStart: 08-29-9465iyis 2 puff(s) by inhalation every four hours as neededalbuterol (PROAIR HFA) 90 mcg/actuation inhaler Inhale 2 puffs every 4 (four) hours as needed. 11/23/2022 ActiveStart: 24-11-6040BqkCma HFA Inhalation, q6hr Shortness of breath or wheezing Start Date: 11/23/22 Status: Ordered Repeat number: 1Start: 45-22-6153ZcaIfr HFA Inhalation, q6hr Shortness of breath or wheezing Start Date: 11/23/22 Status: OrderedStart: 05-81-0792DltBze HFA Inhalation, q6hr Start Date: 11/23/22 Status: OrderedStart: 80-52-8641Pdttt: 89-77-9062wkzy 1 puff(s) by inhalation every six hours as neededAlbuterol Sulfate (Proair Hfa) 90 mcg/actuation Hfa Aerosol Inhaler Active 2 PUFF INHALATION Every 6 hours as needed for Shortness Of Breath June 28, 2019 1:00amStart: 81-20-8179hzju 1 puff(s) by inhalation every four to six hoursAlbuterol Sulfate (Proair Hfa) 90 mcg/actuation Hfa Aerosol Inhaler Active 2 PUFF INHALATION EVERY 4-6 HOURS June 28, 2019 1:00amStart: 88-39-1984uode 2 puff(s) by inhalation every four hours as neededProAir HFA 108 (90 Base) MCG/ACT 2 puffs as needed Inhalation Q4H PRN PRN Dec, Active take 2 puff(s) by inhalation in the morningalbuterol (PROVENTIL HFA;VENTOLIN HFA) 90 mcg/actuation inhaler Inhale 2 puffs in the morning and 2puffs before bedtime. Activetake 2 puff(s) by inhalation twice dailyalbuterol 90 mcg/actuation inhaler Inhale 2 puffs 2 times a day. Activetake 2 puff(s) by inhalation in the morningalbuterol HFA 90 mcg/act inhaler Inhale 2 puffs in the morning and 2 puffs before bedtime. Activetake 1-2 puff(s) by mouth every four to six hours as neededProAir HFA 108 (90 Base) MCG/ACT AERS INHALE 1 TO 2 PUFFS BY MOUTH EVERY 4 TO 6 HOURS NEEDED Quantity: 0 Refills: 0 Ordered: 11-Jan-2023 DO Activetake 2 puff(s) by inhalation twice dailyAlbuterol Sulfate HFA 108 MCG/ACT AERS INHALE 2 PUFFS Twice daily Quantity: 0 Refills: 0 Ordered: DO Activeallopurinol 100 mg oral tablet (1 source)Xanthine Oxidase InhibitorStart: 88-41-6182axnkoaapsgzvn hydrochloride 25 mg oral tablet (20 sources)Tricyclic AntidepressantStart: 07-12-2023 End: 58-19-9690adah 1 tablet by mouth once dailyamitriptyline (ELAVIL) 25 mg tablet Take 1 tablet (25 mg total) by mouth nightly. 09/03/2023 ActiveStart: 07-12-2023 End: 70-35-4797xydz 4 tablets by mouth once dailyAmitriptyline 25 mg tablet Discontinued 100 MG PO Daily July 12, 2023 1:00am March 062:39pm Start: 07-12-2023 End: 21-09-3296vqey 100 mg by mouth once dailyAmitriptyline Discontinued 100 MG PO Daily July 12, 2023 1:00am March 06, 2024 12:39pmStart: 11-23-2022 take 1 tablet by mouth once dailyamitriptyline (Elavil) 100 mg tablet Take 1 tablet (100 mg) by mouth once daily. 09/03/2023 Activetake 0.5-1 tablets by mouth once daily at bedtimeAmitriptyline HCl 25 MG 1/2-1 tab Orally QHS Active ascorbic acid 500 mg oral tablet (8 sources)Vitamin Ctake 1 tablet by mouth once dailyascorbic acid (Vitamin C) 500 mg tablet Take 1 tablet (500 mg) by mouth once daily. Activetake 1 tablet by mouth once dailyascorbic acid (Vitamin C) 500 MG tablet Take 1 tablet (500 mg) by mouth once daily. Activeaspirin 81 mg delayed release oral tablet (20 sources)Platelet Aggregation Inhibitor, Nonsteroidal Anti-inflammatory Drug Start: 80-48-2081uner 1 tablet by mouth in the morningaspirin 81 mg Take 1 tablet (81 mg total) by mouth in the morning. 10/06/2023 ActiveStart: 06-22-2021 take 1 tablet by mouth once dailyAspirin Low Dose 81 MG Oral Tablet Delayed Release TAKE 1 TABLET DAILY. Quantity: 90 Refills: 3 Ordered: 26-Oct-2021 Raulito Inman MD Start : 22-Jun-2021 Active fill at patients requestStart: 04-01-2018 End: 24-59-0576Kgyintc 81 mg Tab-EC (14 sources)Start: 34-65-9459Vquxkcz 81 mg Tab-EC Refills(s) 0 Start Date: 07/10/14 Status: Orderedatorvastatin 80 mg oral tablet (20 sources)HMG-CoA Reductase InhibitorStart: 03-13-2024 End: 68-96-7826Cactn: 07-10-2014 End: 88-49-9633iomi 1 tablet by mouth in the morningatorvastatin (LIPITOR) 80 mg tablet Take 1 tablet (80 mg total) by mouth in the morning. 10/06/2023ctive Blood Glucose Meter kit (20 sources)Start: 13-97-8338Ujzav: 67-50-0889Hyula Glucose Meter kit as directed BID Dec, ActiveBlood Glucose Monitoring Suppl (ONE TOUCH ULTRA 2) w/Device kit (1 source)Start: 40-00-5292Mccwj Glucose Monitoring Suppl (ONE TOUCH ULTRA 2) w/Device kit USE TO TEST BLOOD SUGARS ONCE A DAY08/17/2023 ActiveBlood Pressure Kit - (20 sources)Start: 55-92-5671Inezu: 32-21-1729Mfezg Pressure Kit - check bp 1-2 times a day and prn Sep, Vybgss705 actuat budesonide 0.16 mg/actuat / formoterol fumarate 0.0045 mg/actuat metered dose inhaler (20 sources)Corticosteroid, beta2-Adrenergic AgonistStart: 50-83-5169Svxgf: 29-37-5376spez 1 puff(s) by inhalation twice dailyBudesonide-Formoterol 160-4.5 mcg/actuation HFA aerosol inhaler Active 2 PUFF INHALATION Twice daily April 05, 2024 12:00amStart: 03-13-2024 End: 55-41-4013Desai: 03-13-2024 End: 41-24-8570kmbu 1 puff(s) by inhalation twice dailyBudesonide-Formoterol (Symbicort) 80-4.5 mcg/actuation Hfa Aerosol Inhaler Discontinued 2 PUFF INHAL ATION Twice daily 0 March 13, 2024 12:00am April 05, 2024 1:45pmStart: 07-12-2023 End: 87-48-5519Ndgnx: 07-12-2023 End: 02-43-9182Igmrwvzghn-Formoterol (Symbicort) 160-4.5 mcg/actuation HFA aerosol inhaler Discontinued 1 INH INHALATION Twice daily July 12, 2023 1:00am March 03, 2024 2:28pmclarithromycin 500 mg oral tablet (6 sources)Macrolide AntimicrobialStart: 80-05-9316xvtf 1 tablet by mouth every twelve hoursClarithromycin 500 MG 1 tablet Orally every 12 hrs for 10 day(s) Jul, Activeclopidogrel 75 mg oral tablet (20 sources)P2Y12 Platelet InhibitorStart: 07-10-2014 End: 99-72-0319znegsndaczjwt 10 mg oral tablet (20 sources)Sodium-Glucose Cotransporter 2 InhibitorStart: 11-23-2022 End: 36-58-8990emjh 1 tablet by mouth once daily in the morningJardiance 10 mg oral tablet 10 mg = 1 tab(s), Oral, qAM Start Date: 11/23/22 Status: Ordered Repeat number: 1Start: 35-88-1359usnf 1 tablet by mouth every twenty-four hours Jardiance 25 MG 1 tablet Orally Once a day for 30 day(s) Sep, Active Ensure (3 sources)Start: 90-42-8163Uivwdf 237 mL, Oral, BIDWM, Refill(s) 0 Start Date: 02/21/24 Status: Orderedfamotidine 40 mg oral tablet (14 sources)Histamine-2 Receptor AntagonistStart: 55-22-6955knik 1 tablet by mouth once daily at bedtimefamotidine 40 mg Tab 40 mg = 1 tab(s), Oral, Once a day (at bedtime), # 30 tab(s), Refills(s) 0 Start Date: 07/10/14 Status: Ordered fenofibrate 160 mg oral tablet (14 sources)Peroxisome Proliferator Receptor alpha AgonistStart: 71-71-8848cvwj 1 tablet by mouth once dailyfenofibrate 160 mg oral tablet 160 mg = 1 tab(s), Oral, Daily, Refills(s) 0 Start Date: 10/31/13 Status: OrderedFlash Glucose Scanning [place] (Freestyle Jigar 2 [place]) misc (12 sources)Start: 29-55-7926Bykcp Glucose Scanning [place] (Freestyle Jigar 2 [place]) misc Active 0 .Route December 27, 2023 11:00pm As directedStart: 75-94-3643Jlabk Glucose Scanning [place] (Freestyle Jigar 2 [place]) misc Active 0 .Route 1 December 28, 2023 12:00am As directedStart: 20-13-9256Ernbd Glucose Scanning [place] (Freestyle Jigar 2 [place]) misc Active 0 .ROUTE 1 December 28, 2023 12:00am As directedFlash Glucose Sensor (Freestyle Jigar 2 Sensor) kit (12 sources)Start: 57-06-6480Oxalr Glucose Sensor (Freestyle Jigar 2 Sensor) kit Active 0 .Route 1 December 27, 2023 11:00pm As directedStart: 91-84-7644Vlzto Glucose Sensor (Freestyle Jigar 2 Sensor) kit Active 0 .Route 1 December 28, 2023 12:00am As directedStart: 36-60-3743Lyuig Glucose Sensor (Freestyle Jigar 2 Sensor) kit Active 0 .ROUTE 1 December 28, 2023 12:00am As directedfurosemide 40 mg oral tablet (20 sources)Loop DiureticStart: 07-26-2023 End: 47-50-4795kiqy 1 tablet by mouth once dailyfurosemide (Lasix) 40 mg tablet Indications: Localized edema Take 1 tablet (40 mg) by mouth once daily. 90 tablet 3 04/02/2024 04/02/2025 ActiveStart: 07-12-2023 End: 96-14-4379Txmjl: 07-12-2023 End: 91-99-8400ksah 1 tablet by mouth once daily in the morningFurosemide (Lasix) 20 mg tablet Discontinued 20 MG PO Every morning July 12, 2023 1:00am March 03, 2024 2:29pmStart: 03-13-2019 End: 38-62-8064Ccgmo: 03-13-2019 End: 13-67-9918whex 1 tablet by mouth once dailyFurosemide 20 mg Tablet Discontinued 20 MG PO Daily March 13, 2019 12:00am July 14, 2020 12:39pm gabapentin 300 mg oral capsule (1 source)Anti-epileptic AgentStart: 11-14-2023 End: 53-13-0418kgtr 1 capsule by mouth three times dailygabapentin (NEURONTIN) 300 mg capsule Indications: Post-op pain Take 1 capsule (300 mg total) by mouth 3 (three) times a day for 7 days. 21 capsule 11/14/2023 11/21/2023 Active glimepiride 2 mg oral tablet (20 sources)SulfonylureaStart: 10-31-2013 End: 39-39-3686yevffOJQNQWgaeujmkw 12.5 mg / valsartan 80 mg oral tablet (20 sources)Thiazide Diuretic, Angiotensin 2 Receptor BlockerStart: 11-05-2024 Start: 08-11-2024 End: 16-97-5105Rojay: 04-05-2024 End: 84-55-0553Dmdpc: 03-13-2024 End: 19-00-6753Tlllk: 03-13-2024 End: 68-52-7023nthq 1 tablet by mouth once dailyValsartan-Hydrochlorothiazide 80-12.5 mg tablet Discontinued 1 TAB PO Daily April 05, 2024 3:28pm August 11, 2024 4:35amStart: 07-12-2023 End: 72-71-0566Xzvfl: 11-23-2022 End: 47-80-1479ycpo 1 tablet by mouth once dailyValsartan-Hydrochlorothiazide (Diovan Hct) 160-12.5 mg tablet Discontinued 1 TAB PO Daily August 11, 2024 1:00am October 11, 2024 1:31pmtake 1 tablet by mouth once dailyValsartan- hydroCHLOROthiazide 160-12.5 MG 1 tablet Orally Once a day Activetake 1 tablet by mouth every eight hourstake 1 tablet by mouth three times dailyValsartan- hydroCHLOROthiazide 160-12.5 MG 1 tablet Orally TID ActivehydrOXYzine hydrochloride 25 mg oral tablet (20 sources)AntihistamineStart: 05-06-2024 End: 32-30-2161Kyrdv: 04-19-2024 End: 51-21-5554Aezailj Lispro (14 sources)Insulin AnalogStart: 38-51-0331jeavtoc lispro 0-10 Unit(s), SubCutaneous, QIDACHS, Refills(s) 0 Start Date: 02/21/24 Status: Ordered Repeat number: 1Start: 83-26-0655alkxcpl lispro 0-10 Unit(s), SubCutaneous, QIDACHS, Refills(s) 0 Start Date: 02/21/24 Status: OrderedStart: 02-20-2024 End: 21-52-9945SilkJID Sliding Scale 0-10 Unit(s), Injection-Insulin, SubCutaneous, Start date 02/20/24 4:30:00 PM EDT Start Date: 02/20/24 Stop Date: 02/20/24 Status: Completedinsulin lispro (HumaLOG) 100 unit/mL injection Inject under the skin. Take as directed per insulin instructions. ActiveInsulin Lispro 100 UNIT/ML solution Inject under the skin. Take as directed per insulin instructions. ActiveInsulin Syringe,Safety Needle (1 source)Start: 86-11-3554Jiinlpq Syringe,Safety Needle Active 0 .Route 100 March 29, 2024 12:00am As zpicdbwe34 hr isosorbide mononitrate 30 mg extended release oral tablet (20 sources)Nitrate VasodilatorStart: 33-41-9812Kunww: 01-11-2023 End: 35-02-4795Eklrh: 98-72-5839vbdq 1 tablet by mouth once daily in the morning Imdur 60 mg ER Tab 60 mg = 1 tab(s), Oral, qAM, # 30 tab(s), Refills(s) 0 Start Date: 07/11/14 Status: OrderedJuven packet (3 sources)Start: 98-86-5511Meyxw packet Oral, BID, Refill(s) 0 Start Date: 02/21/24 Status: Orderedloperamide hydrochloride 2 mg oral tablet (3 sources)Opioid Agonisttake 1 tablet by mouth four times daily as needed for diarrhealoperamide (Imodium A-D) 2 MG tablet Take 1 tablet (2 mg) by mouth 4 times a day as needed for diarrhea. Activemagnesium oxide 400 mg oral tablet (20 sources)Start: 69-98-5626mkwg 1 tablet by mouth once dailymagnesium oxide (Mag-Ox) 400 mg tablet Indications: Palpitations Take 1 tablet (400 mg) by mouth once daily. 12/26/2024 ActiveStart: 05-07-2024 End: 54-53-9044Xqjti: 03-13-2024 End: 68-98-3057zconsvsis oxide (Mag-Ox) 400 MG tablet 1 tablet (400 mg) 3 times a day. ActivemetFORMIN hydrochloride 1000 mg oral tablet (20 sources)BiguanideStart: 06-06-2012 End: 70-47-3889zyzj 1 tablet by mouth every twelve hoursmetFORMIN (GLUCOPHAGE) 1000 mg tablet Take 1 tablet (1,000 mg total) by mouth every 12 (twelve) hours. Activetake 1 tablet by mouth every twelve hoursmetFORMIN (Glucophage) 1,000 mg tablet Take 1 tablet (1,000 mg) by mouth every 12 hours. Activemetoprolol tartrate 25 mg oral tablet (20 sources)beta-Adrenergic BlockerStart: 03-13-2024 End: 24-10-6029Qqnqn: 03-13-2024 End: 50-51-4439Rhfus: 03-13-2024 End: 18-62-3553hvdr 1 tablet by mouth twice dailyMetoprolol Tartrate 25 mg Tablet Discontinued 25 MG PO Twice daily 0 March 13, 2024 12:00am August 11, 2024 4:40am Hold for SBPStart: 03-06-2024 End: 66-74-2648Amlfr: 03-06-2024 End: 26-34-7692Qiuqbfvjnl Tartrate 100 mg tablet Discontinued 12.5 MG PO Twice daily March 06, 2024 12:38pmOct2023 2:53pmStart: 02-21-2024 End: 72-44-9682ysteogwyph tartrate 100 mg Tab 50 mg = 0.5 tab(s), Tab, Oral, Start date 02/21/24 9:00:00 AM EDT, 02/12/24 20:07:00 EDT Start Date: 02/21/24 Stop Date: 02/21/24 Status: CompletedStart: 01-01-2024 End: 61-91-1750uvfo 1 tablet by mouth once dailymetoprolol succinate XL (Toprol- XL) 25 mg 24 hr tablet Indications: Coronary artery disease involving telida coronary artery of telida heart without angina pectoris Take 1 tablet (25 mg) by mouth once daily. Do not crush or chew. 90 tablet 3 01/01/2024 ActiveStart: 04-01-2018 End: 92-04-6821cfhwmniafr tartrate 100 mg Tab 50 mg = 0.5 tab(s), Oral, BID, Refills(s) 0 Start Date: 02/12/24 Status: Ordered Repeat number: 1Start: 04-01-2018 End: 96-16-0741Xkxph: 04-01-2018 End: 78-52-0244fnhb 12.5 mg by mouth twice dailyMetoprolol Tartrate Discontinued 12.5 MG PO Twice daily 180 March 06, 2024 12:38pm March 08, 2024 2:53pm Start: 05-62-5682pyvg 100 mg by mouth twice dailyMetoprolol Tartrate Active 100 MG PO Twice daily April 01, 2018 12:00amStart: 88-09-1290jqqxvqhter 100 mg, BID, Refills(s) 0 Start Date: 01/24/11 Status: Ordered End: 41-24-7922bawx 0.5 tablet by mouth twice dailymetoprolol tartrate (Lopressor) 100 mg tablet Take 0.5 tablets (50 mg) by mouth 2 times a day. 10/23 Discontinued (Therapy completed)24 hr nicotine 0.875 mg/hr transdermal system (8 sources)Cholinergic Nicotinic AgonistStart: 89-30-1692Ueqpw: 02-21-2024 nicotine 14 mg/24 hr Transderm ER Film TransDermal, Daily, Refill(s) 0 Start Date: 02/21/24 Status: Ordered Repeat number: 1nitroglycerin 0.4 mg sublingual tablet (20 sources)Nitrate VasodilatorStart: 24-47-4004syrxqtblygoza (Nitrostat) 0.[address] under the tongue. 11/03/2021 ActiveStart: 07-10-2014 End: 04-52-0126wegxppuisqywk (Nitrostat) 0.[address] 1 tablet (0.4 mg total) under the tongue every 5 (five) minutes as needed for chest pain. Active omeprazole 40 mg delayed release oral capsule (20 sources)Proton Pump InhibitorStart: 20-69-0047Jjhmlwfm Oral, Daily Start Date: 11/23/22 Status: OrderedStart: 07-24-2019 End: 38-54-5667Wrmnt: 07-24-2019 End: 85-02-4105ttcu 40 mg by mouth once dailyOmeprazole Discontinued 40 MG PO Daily July 24, 2019 1:00am July 26, 2023 5:38pmStart: 75-92-8238fnfg 20 mg by mouth once dailyOmeprazole Active 20 MG PO Daily July 24, 2019 1:00amStart: 01-02-2018 End: 81-96-6096issn 2 tablets by mouth twice daily before mealtimeomeprazole OTC (PriLOSEC OTC) 20 mg EC tablet Take 2 tablets (40 mg) by mouth 2 times a day before meals. Do not crush, chew, or split. ActiveONETOUCH ULTRA2 METER misc (20 sources)Start: 53-38-4945HOEKACDA ULTRA2 METER misc 1 Unit by subconjunctival route in the morning. 08/17/2023 SuspendedStart: 08-17-2023 ONETOUCH ULTRA2 METER misc 1 Unit by subconjunctival route in the morning. 08/17/2023 Activepregabalin 75 mg oral capsule (20 sources)Start: 14-65-4692jlya 3 capsules by mouth three times daily Pregabalin (Lyrica) 75 mg capsule Active 225 MG PO Three times daily October 10, 2024 12:00amStart: 08-12-2024 End: 56-74-2768eyyl 1 capsule by mouth three times dailyPregabalin (Lyrica) 75 mg capsule Discontinued 75 MG PO Three times daily 3 August 30, 2024 12:00am October 10, 2024 6:58pmStart: 03-13-2024 End: 20-94-8298cxxc 1 capsule by mouth twice dailyPregabalin 50 mg Capsule Discontinued 50 MG PO Twice daily 0 March 13, 2024 12:00am April 05, 2024 1:35pmStart: 01-24-2011 End: 45-06-8123muygfaxsbe (LYRICA) 200 mg capsule Take 1 capsule (200 mg total) by mouth in the morning and 1 capsule (200 mg total) at noon and 1 capsule (200 mg total) before bedtime. 09/28/2023 ActiveProAir HFA 108 (90 Base) MCG/ACT (20 sources)Start: 24-91-7985rmhn 2 puff(s) by inhalation every four hours as neededProAir HFA 108 (90 Base) MCG/ACT 2 puffs as needed Inhalation Q4H PRN PRN Dec, ActiveStart: 77-75-3802reqx 2 puff(s) by inhalation every four hours as neededrivaroxaban 2.5 mg oral tablet (6 sources)Factor Xa InhibitorStart: 11-08-2023 End: 38-43-5140gido 1 tablet by mouth in the morning, then take 1 tablet by mouth at bedtimerivaroxaban (XARELTO) 2.5 mg tablet Take 1 tablet (2.5 mg total) by mouth in the morning and 1 tablet (2.5 mg total) before bedtime. Do all this for 30 days. 60 tablet 11/08/2023 12/08/2023 Activesennosides, senior living 8.6 mg oral tablet (3 sources)Start: 88-29-0255onjk 1 tablet by mouth twice dailysenna 8.6 mg Tab 8.6 mg = 1 tab(s), Oral, BID, Refills(s) 0 Start Date: 02/21/24 Status: Ordered sildenafil 100 mg oral tablet (20 sources)Phosphodiesterase 5 InhibitorStart: 04-05-2024 End: 30-21-3894Rbyiy: 03-08-2024 End: 58-64-5052Mvxmi: 03-13-2019 End: 82-71-3152Skcox: 05-07-2018 End: 41-22-6263prpc 1 tablet by mouth once dailySildenafil (Viagra) 100 mg Tablet Discontinued 100 MG PO Daily March 13, 2019 12:00am March 03, 2024 2:29pmSITagliptin 100 mg oral tablet (20 sources)Dipeptidyl Peptidase 4 InhibitorStart: 07-09-2020 End: 34-51-3257etuuxqvioq hydrochloride 0.4 mg oral capsule (20 sources)alpha-Adrenergic BlockerStart: 53-71-0145aqmo 1 capsule by mouth twice dailytamsulosin 0.4 mg Cap 0.4 mg = 1 cap(s), Oral, BID, # 180 cap(s), Refills(s) 3, Pharmacy: [facility]/pharmacy #[id number], 182, cm, 09/27/24 10:46:00 EDT, Height/Length Dosing, 88, kg, 09/27/24 10:46:00 EDT, Weight Dosing Start Date: 09/27/24 Status: Ordered Quantity: 180.0 Unit: cap(s) Repeat number: 4Start: 02-21-2024 End: 22-27-3492kxczcluzob 0.4 mg Cap 0.4 mg = 1 cap(s), Cap, Oral, Start date 02/21/24 9:00:00 AM EDT, 02/12/24 18:02:00 EDT Start Date: 02/21/24 Stop Date: 02/21/24 Status: CompletedStart: 38-09-5051pogd 1 capsule by mouth once daily tamsulosin (FLOMAX) 0.4 mg capsule Take 1 capsule (0.4 mg total) by mouth nightly. 06/26/2023 ActiveStart: 02-14-2023 End: 82-45-7244jtxn 1 capsule by mouth at bedtimetamsulosin (FLOMAX) 0.4 mg capsule Take 1 capsule (0.4 mg total) by mouth in the morning and at bedtime. 06/26/2023 Activetake 1 capsule by mouth once dailyTamsulosin HCl - 0.4 MG Oral Capsule TAKE 1 CAPSULE Daily Quantity: 0 Refills: 0 Ordered: 15-Feb-2023 DO ActiveTENS Unit (20 sources)Start: 40-41-9296Xnipv: 69-67-5897RYMM Unit as directed Use as directed. Jan, Pywxud37 actuat tiotropium 0.0025 mg/actuat inhalation spray (20 sources)AnticholinergicStart: 51-56-8869jftz 2 puff(s) by mouth once daily Spiriva Respimat 2.5 MCG/ACT inhaler INHALE 2 PUFFS BY MOUTH ONCE DAILY 12/20/2022 ActiveStart: 90-98-8333jyef 1 capsule by inhalation once in the morningtiotropium (SPIRIVA WITH HANDIHALER) 18 mcg per inhalation capsule Place 1 capsule (18 mcg total) into inhaler and inhale in the morning. 11/23/2022 ActiveStart: 41-42-0822hdro 1 capsule by inhalation once dailytiotropium (SPIRIVA WITH HANDIHALER) 18 mcg per inhalation capsule Place 1 capsule (18 mcg total) into inhaler and inhale once daily. 11/23/2022 ActiveStart: 11-23-2022 Spiriva 18 mcg Cap 18 mcg = 1 cap(s), Inhalation, Daily, Using only ONE capsule, have the patient inhale twice, # 90 cap(s) Start Date: 11/23/22 Status: Ordered Quantity: 90.0 Unit: cap(s) Repeat number: 1Start: 44-80-7020Gljdehp 18 mcg Cap 18 mcg = 1 cap(s), Inhalation, Daily, Using only ONE capsule, have the patient inhale twice, # 90 cap(s) Start Date: 11/23/22 Status: Ordered End: 81-67-1841vqsk 2 puff(s) by inhalation twice dailytiotropium (Spiriva Respimat) 2.5 mcg/actuation inhaler Inhale 2 puffs 2 times a day. 10/24/2023 Dis continued (Therapy completed)take 1 capsule by inhalation once dailySpiriva HandiHaler 18 MCG 1 capsule by inhaling the contents of the capsule using the HandiHaler device Inhalation Once a day Activetake 1 capsule by inhalation once dailySpiriva HandiHaler 18 MCG 1 capsule by inhaling the contents of the capsule using the HandiHaler device Inhalation Once a day Activetake 2 puff(s) by inhalation twice dailySpiriva Respimat 2.5 MCG/ACT Inhalation Aerosol Solution INHALE 2 PUFFS Twice daily Quantity: 0 Refills: 0 Ordered: 26-Oct-2021 DO Active Tiotropium [place] (Spiriva With Handihaler) 18 mcg capsule, w/inhalation device (20 sources)Start: 30-97-8111wfhk 1 capsule by inhalation once dailyTiotropium [place] (Spiriva With Handihaler) 18 mcg capsule, w/inhalation device Active 1 CAP INHALATION Daily March 02, 2024 11:00pm puncture 1 cap using device; one dose = 2 inhalationsStart: 42-79-0110tupb 1 capsule by inhalation once daily Tiotropium [place] (Spiriva With Handihaler) 18 mcg capsule, w/inhalation device Active 1 CAP INHALATION Daily March 03, 2024 12:00am puncture 1 cap using device; one dose = 2 inhalationsStart: 07-12-2023 End: 70-36-3662vwxy 1 capsule by inhalation once dailyTiotropium [place] (Spiriva With Handihaler) 18 mcg capsule, w/inhalation device Discontinued 1 CAP INHALATION Daily July 12, 2023 12:00am March 03, 2024 1:29pm puncture 1 cap using device; one dose = 2 inhalationsStart: 07-12-2023 End: 65-70-8089oxxz 1 capsule by inhalation once dailyTiotropium [place] (Spiriva With Handihaler) 18 mcg capsule, w/inhalation device Discontinued 1 CAP INHALATION Daily July 12, 2023 1:00am March 03, 2024 2:29pm puncture 1 cap using device;one dose = 2 inhalationsStart: 44-91-6809nnpp 1 capsule by inhalation once dailyTiotropium [place] (Spiriva With Handihaler) 18 mcg capsule, w/inhalation device Active 1 CAP INHALATION Daily July 12, 2023 1:00am puncture 1 cap using device; one dose = 2 inhalationsStart: 07-12-2023 take 1 capsule by inhalation once dailyTiotropium [place] (Spiriva With Handihaler) 18 mcg capsule, w/inhalation device Active 1 CAP INHALATION Daily July 12, 2023 12:00am puncture 1 cap using device; one dose = 2 inhalations tiZANidine 4 mg oral tablet (20 sources)Central alpha-2 Adrenergic AgonistStart: 93-93-7114Ketsh: 07-12-2023 End: 26-41-9493Kmbbu: 11-23-2022 End: 69-36-8301pdZTXpycfr (ZANAFLEX) 4 mg capsule Take 1 capsule (4 mg total) by mouth as needed in the morning and 1 capsule (4 mg total) as needed at noon and 1 capsule (4 mg total) as needed in the evening for muscle spasms. 11/23/2022 ActiveStart: 97-88-4579ibve 1 capsule by mouth three times daily as needed for muscle spasmstiZANidine (ZANAFLEX) 4 mg capsule Take 1 capsule (4 mg total) by mouth 3 (three) times a day as needed for muscle spasms. 11/23/2022 ActiveStart: 35-81-0029tzdu 1 tablet by mouth every twelve hourstiZANidine HCl 4 MG 1 tablet as needed Orally Twice a day Jun, Activetake 2 tablets by mouth at bedtimetiZANidine HCl - 4 MG Oral Tablet TAKE 2 TABLETS AT BEDTIME. Quantity: 0 Refills: 0 Ordered: 11-Jan-2023 DO ActivetraMADol hydrochloride 50 mg oral tablet (20 sources)Opioid AgonistStart: 08-02-2024 End: 30-89-9403rkpx 1 tablet by mouth every six hours as needed for painUltram 50 mg Tab 50 mg = 1 tab(s), Oral, q6hr, PRN Pain, X 5 day(s), # 12 tab(s), Refills(s) 0, Pharmacy: [facility]/pharmacy #[id number], 182, cm, 08/02/24 9:08:00 EST, Height/Length Dosing, 88.5, kg, 08/02/24 9:08:00 EST, Weight Dosing Start Date: 08/02/24 Stop Date: 08/07/24 Status: OrderedStart: 07-26-2023 End: 31-39-8208Qsuig: 07-26-2023 End: 62-91-3951jhys 1 tablet by mouth four times daily as neededTramadol 50 mg tablet Discontinued 50 MG PO July 26, 2023 1:00am March 03, 2024 2:29pm FreeTextSi tablet as needed Orally QID; Note: Source Status: Taking; Refills: 0; Provider: Rory Eason PStart: 27-75-2243udgs 1 tablet by mouth every six hourstraMADol HCl 50 MG 1 tablet as needed Orally QID for 7 days Feb, ActiveStart: 03-13-2019 End: 46-08-7680Irhaa: 03-13-2019 End: 85-82-6212oupr 1 tablet by mouth four times dailyTramadol 50 mg Tablet Discontinued 50 MG PO Four times daily March 13, 2019 12:00am July 24, 2019 2:52pmubrogepant 100 mg oral tablet (20 sources)take 1 tablet by mouth once daily as neededubrogepant 100 mg tablet Take 100 mg by mouth daily as needed. Active (20 sources)Start: 64-48-8016Pxjlu: 38-68-6860Vpiws: 08-30-2024 End: 84-07-4609Mthhx: 08-30-2024 End: 17-92-1716Arpbx: 08-30-2024 End: 79-59-5060Jujag: 08-12-2024 End: 22-40-4176Nzhyu: 08-12-2024 End: 72-21-7433Zbjek: 06-27-2024 End: 27-07-3456Gmnmq: 06-25-2024 End: 32-10-5533Agqqd: 35-39-2316Glzsu: 04-08-2024 End: 13-41-9074Xbxhg: 04-05-2024 End: 67-82-0675Wvpfl: 04-05-2024 End: 13-38-9396Mskhb: 04-04-2024 End: 97-55-5319Qxrne: 56-23-9328Dopcs: 03-13-2024 End: 92-32-7736Gsfxa: 03-13-2024 End: 59-64-8595Iqbxx: 80-78-0824Njlgm: 03-08-2024 End: 54-56-4969Hpwfa: 32-79-9845Vqpne: 03-06-2024 End: 82-53-7109Xnjkz: 72-78-4781Tqmln: 05-36-6987Slaps: 03-03-2024 End: 73-98-3238Wdtqy: 03-03-2024 End: 80-26-2424Bnbky: 03-03-2024 End: 49-55-6351Demzn: 53-13-4637Xzhbf: 12-25-2023 End: 72-00-9837Ohdvl: 12-25-2023 End: 33-79-4063Wacun: 12-05-2023 End: 27-44-5567Gyfiq: 09-28-2023 End: 93-49-3179Iqejh: 09-27-2023 End: 75-45-5962Hwqcd: 07-27-2023 End: 40-73-0685Mhezp: 07-26-2023 End: 08-80-7925Bgkta: 07-12-2023 End: 25-88-4432Ccuea: 07-14-2020 End: 58-13-9944Pwgwk: 08-08-2019 End: 07-26-2023 Completed/Discontinued Medications MedicationDrug Class(es)DatesSig (Normalized)Sig (Original)acetaminophen 325 mg oral tablet (20 sources)Start: 03-13-2024 End: 16-67-8894rgqm 2 tablets by mouth every eight hours as needed for pain and feveracetaminophen (TYLENOL EXTRA STRENGTH) 500 mg tablet Take 2 tablets (1,000 mg total) by mouth every8 (eight) hours as needed for pain or fever. Active acetaminophen (Tylenol) 500 mg tablet Take by mouth every 8 hours if needed for mild pain (1 - 3). Activeacetaminophen 325 mg / oxyCODONE hydrochloride 5 mg oral tablet (6 sources)Opioid AgonistStart: 35-45-1966uflk 1 tablet by mouth every four hours as neededoxyCODONE-acetaminophen (PERCOCET) 5-325 mg per tablet Take 1 tablet by mouth every 4 (four) hours as needed. 09/22/2023 Suspendedalogliptin 25 mg oral tablet (20 sources)Start: 07-14-2020 End: 91-99-5376Nccqs: 03-13-2019 End: 36-54-8795GVGGWJtply 0.5 mg oral tablet (20 sources)BenzodiazepineStart: 08-08-2019 End: 15-86-6302Bmgap: 03-13-2019 End: 11-28-4365Lvlhu: 03-13-2019 End: 63-02-5482fmfo 2 tablets by mouth once dailyAlprazolam (Xanax) 0.5 mg Tablet Discontinued 1 MG PO Daily March 13, 2019 12:00am July 24, 2019 2:52pm End: 81-28-5042daya 1 tablet by mouth three times daily as neededALPRAZolam (Xanax) 0.5 mg tablet Take 1 tablet (0.5 mg) by mouth 3 times a day as needed. 10/24/2023 Discontinued (Therapy completed)10 ml aminophylline 25 mg/ml injection (1 source)Start: 02-05-2025 End: 88-37-612711 mg, intravenous, Administer over 1 Minutes, Once, On Mon02/05/25 at 1000, For 1 doseStart: 02-05-2025 End: 61-88-401006 mg, intravenous, Administer over 1 Minutes, Once, On Mon02/05/25 at 1000, For 1 doseamLODIPine 10 mg oral tablet (20 sources)Dihydropyridine Calcium Channel BlockerStart: 04-01-2018 End: 97-49-9027Ygcpk: 04-01-2018 End: 11-97-0614rzjx 5 mg by mouth once dailyAmlodipine Discontinued 5 MG PO Daily April 01, 2018 12:00am July 24, 2019 2:52pmStart: 17-05-2335utyx 1 tablet by mouth once dailyNorvasc 5 mg Tab 5 mg = 1 tab(s), Oral, Daily, Refills(s) 0 Start Date: 10/31/13 Status: Orderedbaclofen 10 mg oral tablet (17 sources)gamma-Aminobutyric Acid-ergic AgonistStart: 03-03-2024 End: 00-77-2765Yxyac-Glucose Meter,Continuous (Freestyle Jigar 3 [place]) misc (10 sources)Start: 12-25-2023 End: 67-14-5877Ezuzw-Glucose Meter,Continuous (Freestyle Jigar 3 [place]) misc Discontinued 0 .Route December 24, 2023 11:00pm December 28, 2023 10:03am As directedStart: 12-25-2023 End: 94-15-4090Fozmv-Glucose Meter,Continuous (Freestyle Jigar 3 [place]) misc Discontinued 0 .Route December 25, 2023 12:00am December 28, 2023 11:03am As directedBlood-Glucose Sensor (Freestyle Jigar 3 Sensor) device (12 sources)Start: 12-25-2023 End: 22-39-9976Lmdyz-Glucose Sensor (Freestyle Jigar 3 Sensor) device Discontinued 0 .Route December 24, 2023 11:00pm December 28, 2023 10:03am As directedStart: 12-25-2023 End: 55-62-0450Zseej-Glucose Sensor (Freestyle Jigar 3 Sensor) device Discontinued 0 .Route December 25, 2023 12:00am December 28, 2023 11:03am As directedBlood-Glucose,Customer Acquisition Specialist,Cont (Freestyle Jigar 3 [place]) misc (2 sources)Start: 12-25-2023 End: 46-06-5807Ljpdq-Glucose,Customer Acquisition Specialist,Cont (Freestyle Jigar 3 [place]) misc Discontinued 0 .Route December 242:00am December 28, 2023 11:03am As directedbusPIRone hydrochloride 10 mg oral tablet (20 sources)Start: 03-13-2019 End: 08-48-9252zyirzjk carbonate 1250 mg / cholecalciferol 0.01 mg oral tablet (11 sources)Vitamin DStart: 08-30-2024 End: 02-50-5653Zxszg: 08-30-2024 End: 01-45-6033aodf 1 tablet by mouth once dailyCalcium Carbonate-Vitamin D3 ([place]yster [place] Calcium-Vit D3) 500 mg-10 mcg (400 unit) tablet Discontinued 1 TAB PO Daily September 05, 2024 3:30pm October 10, 2024 7:18pmCalcium Carbonate-Vitamin D3 ([place]yster [place] Calcium-Vit D3) 500 mg-5 mcg (200 unit) Tablet (5 sources)Start: 08-12-2024 End: 22-53-5952eijg 2 tablets by mouth once at mealtimeCalcium Carbonate-Vitamin D3 ([place]yster [place] Calcium-Vit D3) 500 mg-5 mcg (200 unit) Tablet Discontinued 2 TAB PO 3x/Day with meals August 12, 2024 12:00am August 30, 2024 9:16am Start: 32-51-7883yfhy 2 tablets by mouth once at mealtimeCalcium Carbonate- Vitamin D3 ([place]yster [place] Calcium-Vit D3) 500 mg-5 mcg (200 unit) Tablet Active 2 TAB PO 3x/Day with meals August 12, 2024 12:00amcephalexin 500 mg oral capsule (11 sources)Cephalosporin AntibacterialStart: 04-19-2024 End: 16-07-8283klfmmcpUED 0.5 mg oral tablet (20 sources)BenzodiazepineStart: 04-26-2024 End: 92-18-9016yqsagIDY 5 mg oral tablet (20 sources)BenzodiazepineStart: 07-26-2023 End: 55-12-9277Czwiv: 05-21-2020 End: 71-22-2314hqsdgegkajh hydrochloride 20 mg oral tablet (20 sources)AnticholinergicStart: 05-22-2020 End: 17-85-9998vnpebjbkrwy hyclate 100 mg oral capsule (20 sources)Tetracycline-class DrugStart: 08-02-2024 End: 38-33-6090Bmfrp: 24-37-8150lrjq 1 capsule by mouth once dailydoxycycline hyclate 100 mg Cap 100 mg = 1 cap(s), Oral, Daily, Take 1 pill the day before the procedure and 1 pill after the procedure, # 2 cap(s), Refills(s) 0, Pharmacy: [facility]/pharmacy #[id number], 182, cm, 01/30/23 10:24:00 EDT, Height/Length Dosing, 94, kg, 01/30/23 10:24:00 EDT, Weight Dosing Start Date: 01/30/23 Status: Ordered0.5 ml dulaglutide 1.5 mg/ml auto-injector (20 sources)GLP-1 Receptor AgonistStart: 04-04-2024 End: 19-37-4956Kmisaqedyoq (Trulicity) 0.75 mg/0.5 mL pen injector Discontinued MG SUBCUT April 04, 2024 12:00am April 05, 2024 2:02pmStart: 07-12-2023 inject 0.5 mL by subcutaneous injection every weekdulaglutide 0.75 mg/0.5 mL pen injector Inject 0.5 mL (0.75 mg total) under the skin once a week. 07/12/2023 ActiveStart: 07-27-2021 End: 55-33-5322xqgrpo 0.75 mg by subcutaneous injection every weekdulaglutide (TRULICITY) 1.5 mg/0.5 mL pen injector Inject 0.75 mg under the skin once a week. 01/30/2023 ActiveStart: 07-27-2021 End: 98-58-2958AJDlyqucxq 30 mg delayed release oral capsule (20 sources)Serotonin and Norepinephrine Reuptake InhibitorStart: 03-13-2024 End: 50-81-8369lqqn 1 capsule by mouth in the morningDULoxetine (CYMBALTA) 60 mg capsule Take 1 capsule (60 mg total) by mouth in the morning. Activeferrous sulfate 325 mg oral tablet (20 sources)Start: 03-06-2024 End: 22-55-4269phnx 1 tablet by mouth every other dayFerrous Sulfate 325 mg (65 mg iron) tablet Discontinued 325 MG PO Q2D March 06, 2024 12:00am April 23, 2024 1:48pmStart: 07-26-2023 End: 60-87-7270Mhjdm: 07-26-2023 End: 74-48-2485Emjzqbt Sulfate (Slow Fe) 137 mg (45 mg iron) tablet extended release Discontinued MG PO July 26, 2023 1:00am March 03, 2024 2:28pmStart: 10-51-7379pygo 1 tablet by mouth three times weeklySlow Fe 142 (45 Fe) MG 1 tablet Orally Three times a Week for 30 day(s) Apr, Activetake 1 tablet by mouth once dailyferrous sulfate, 325 mg ferrous sulfate, tablet Take 1 tablet by mouth once daily. Active1.5 ml fremanezumab-vfrm 150 mg/ml prefilled syringe (20 sources)Start: 05-07-2024 End: 74-81-6430Zohmq: 87-17-1696ssqnsr 1.5 mL by subcutaneous injection every 30 daysAJOVY AUTOINJECTOR 225 mg/1.5 mL Inject 1.5 mL (225 mg total) under the skin every 30 (thirty) days. 07/18/2023 ActiveStart: 07-12-2023 End: 22-41-1877Bnswa: 07-12-2023 End: 12-44-1471Bttlcwyhtrjp-Vfrm (Ajovy Autoinjector) 225 mg/1.5 mL auto- injector Discontinued 225 MG SUBCUT Q30D July 12, 2023 1:00am March 03, 2024 2:28pmhydroCHLOROthiazide 25 mg / losartan potassium 100 mg oral tablet (20 sources)Thiazide Diuretic, Angiotensin 2 Receptor BlockerStart: 04-01-2018 End: 22-10-9749Xxuex: 04-01-2018 End: 39-39-1792mull 1 tablet by mouth once dailyLosartan-Hydrochlorothiazide 100-25 mg Tablet Discontinued 1 TAB PO Daily April 01, 2018 12:00am March 13, 2019 8:00amhydroCHLOROthiazide 12.5 mg / olmesartan medoxomil 40 mg oral tablet (20 sources)Thiazide Diuretic, Angiotensin 2 Receptor BlockerStart: 07-24-2019 End: 52-38-7404Lzosi: 07-24-2019 End: 51-44-1869ezdt 1 tablet by mouth once dailyOlmesartan-Hydrochlorothiazide (Benicar Hct) 40-12.5 mg Tablet Discontinued 1 TAB PO Daily 2019 1:00am July 14, 2020 12:39pmibuprofen 200 mg oral tablet (20 sources)Nonsteroidal Anti-inflammatory DrugStart: 07-26-2023 End: 81-43-8233sncn 1 tablet by mouth three times daily at mealtime as needed Ibuprofen 200 MG 1 tablet with food or milk as needed Orally Three times a day ActiveInsulin Aspart U-100 (Novolog Flexpen U-100 Insulin) 100 unit/mL (3 mL) Insulin Pen (10 sources)Start: 03-13-2024 End: 72-15-4145Lrpuywp Aspart U-100 (Novolog Flexpen U-100 Insulin) 100 unit/mL (3 mL) Insulin Pen Discontinued 0 UNIT SUBCUT 3X/Day with meals and bedtime 0 March 13, 2024 12:00am April 05, 2024 3:27pm Please contact the information source for Protocol details.Start: 03-13-2024 End: 75-23-1944Udikkaf Aspart U-100 (Novolog Flexpen U-100 Insulin) 100 unit/mL (3 mL) Insulin Pen Discontinued 0 UNIT SUBCUT 3X/Day with meals and bedtime 0 March 12, 2024 11:00pm April 05, 2024 2:27pm Please contact the information source for Protocol details.Start: 95-63-8809Kvdpljf Aspart U-100 (Novolog Flexpen U-100 Insulin) 100 unit/mL (3 mL) Insulin Pen Active 0 UNIT TELLEZ BCUT 3X/Day with meals and bedtime 0 March 13, 2024 12:00amInsulin Aspart U- 100 (Novolog Flexpen U-100 Insulin) 100 unit/mL (3 mL) insulin pen (18 sources)Start: 04-08-2024 End: 43-85-3787Ibqpfqy Aspart U-100 (Novolog Flexpen U-100 Insulin) 100 unit/mL (3 mL) insulin pen Discontinued 0 UNIT SUBCUT 3X/Day with meals and bedtime April 08, 2024 4:23pm May 07, 2024 5:32pm Please contact the information source for Protocol details.Start: 04-08-2024 End: 55-51-3524Jaupeva Aspart U-100 (Novolog Flexpen U-100 Insulin) 100 unit/mL (3 mL) insulin pen Discontinued 0 UNIT SUBCUT 3X/Day with meals and bedtime April 08, 2024 3:23pm May 07, 2024 4:32pm Please contact the information source for Protocol details.Start: 79-36-7088Bzmvexg Aspart U-100 (Novolog Flexpen U-100 Insulin) 100 unit/mL (3 mL) insulin pen Active 0 UNIT TELLEZ BCUT 3X/Day with meals and bedtime April 08, 2024 3:23pm Please contact the information source for Protocol details.Start: 04-05-2024 End: 69-83-9022Awvfmei Aspart U-100 (Novolog Flexpen U-100 Insulin) 100 unit/mL (3 mL) insulin pen Discontinued 0 UNIT SUBCUT 3X/Day with meals and bedtime April 05, 2024 3:15pm April 08, 2024 4:25pm Please contact the information source for Protocol details.Start: 04-05-2024 End: 80-25-6366Kdyuyll Aspart U-100 (Novolog Flexpen U-100 Insulin) 100 unit/mL (3 mL) insulin pen Discontinued 0 UNIT SUBCUT 3X/Day with meals and bedtime April 05, 2024 2:15pm April 08, 2024 3:25pm Please contact the information source for Protocol details.3 ml insulin glargine 100 unt/ml pen injector (20 sources)Insulin AnalogStart: 03-03-2024 End: 12-64-3459Oeqja: 10-56-5098zqntkd 35 [IU] by subcutaneous injection at bedtimeinsulin glargine 100 units/mL SubQ Malaika 10 mL 35 unit(s), SubCutaneous, Bedtime, Refills(s) 0 Start Date: 02/21/24 Status: Ordered Repeat number: 1 Insulin Lispro (Humalog Kwikpen Insulin) 100 unit/mL insulin pen (12 sources)Start: 03-03-2024 End: 17-91-0527Grrwnvi Lispro (Humalog Kwikpen Insulin) 100 unit/mL insulin pen Discontinued 1 sliding scale dose SUBCUT As Directed March 02, 2024 11:00pm March 08, 2024 5:26pmStart: 03-03-2024 End: 18-98-3675Jbuvzen Lispro (Humalog Kwikpen Insulin) 100 unit/mL insulin pen Discontinued 1 sliding scale dose SUBCUT As Directed March 03, 2024 12:00am March 08, 2024 6:26pmStart: 07-77-4524Bvnyovl Lispro (Humalog Kwikpen Insulin) 100 unit/mL insulin pen Active 1 sliding scale dose SUBCUTAs Directed March 03, 2024 [id number] actuat ipratropium bromide 0.017 mg/actuat metered dose inhaler (17 sources)AnticholinergicStart: 03-03-2024 End: 66-69-1618Rbznm: 03-03-2024 End: 58-01-7493Dzkykosjgzf [place] (Atrovent Hfa) 17 mcg/actuation HFA aerosol inhaler Discontinued 2 INH INHALATION Three times daily March 03, 2024 12:00am March 13, 2024 1:06pmKetorolac (20 sources)Nonsteroidal Anti-inflammatory Drug, Cyclooxygenase InhibitorStart: 45-65-0681Zetugxo per 15 mg Jan, 2 ccStart: 92-93-6999Iwpitso per 15 mg Jan, 2 ccStart: 27-43-5623Ojvjdyd per 15 mg Jan, 2 cc lansoprazole 30 mg delayed release oral capsule (20 sources)Proton Pump InhibitorStart: 07-24-2019 End: 43-27-8588Gqnpfodpkkw Supplements (Nutra Pro High Protein) powder (12 sources)Start: 03-03-2024 End: 25-61-4887Uwcfzrctpuo Supplements (Nutra Pro High Protein) powder Discontinued 1 EACH PO Twice daily March 02, 2024 11:00pm March 08, 2024 5:26pmStart: 03-03-2024 End: 10-35-0101Ywzhvrzjbkk Supplements (Nutra Pro High Protein) powder Discontinued 1 EACH PO Twice daily March 03, 2024 12:00am March 08, 2024 6:26pmStart: 55-30-3165Fcwosfvtmus Supplements (Nutra Pro High Protein) powder Active 1 EACH PO Twice daily March 03, 2024 12:00amolmesartan medoxomil 5 mg oral tablet (20 sources)Angiotensin 2 Receptor BlockerStart: 03-13-2019 End: 64-19-0281unbJOVKPX hydrochloride 10 mg oral tablet (20 sources)Opioid AgonistStart: 03-03-2024 End: 56-35-1692Gxuos: 48-55-5025hkaq 2 tablets by mouth every six hours as needed for painoxyCODONE 5 mg Tab 10 mg = 2 tab(s), Oral, q6hr, PRN Pain, # 18 tab(s), Refills(s) 0 Start Date: 02/21/24 Status: OrderedStart: 11-14-2023 End: 05-16-5466yarn 1 tablet by mouth every six hours as needed for pain oxyCODONE (ROXICODONE) 5 mg immediate release tablet Indications: Post-op pain Take 1 tablet (5 mg total) by mouth every 6 (six) hours as needed for pain for up to 7 days. Max Daily Amount: 20 mg 10 tablet 11/14/2023 11/21/2023 Active polyethylene glycol 3350 69604 mg powder for oral solution (20 sources)Osmotic LaxativeStart: 02-21-2024 End: hr ranolazine 1000 mg extended release oral tablet (20 sources)Anti-anginalStart: 07-10-2014 End: 04-33-1314gxgtrjzopjj (Lexiscan) injection 0.4 mg (1 source)Start: 02-05-2025 End: 50.4 mg, intravenous, Once, On Mon02/05/25 at 0930, For 1 dose rimegepant 75 mg disintegrating oral tablet (20 sources)Start: 05-07-2024 End: 56-30-6636Updmb: 04-04-2024 End: 42-95-0886Htfcg: 04-04-2024 End: 04-59-5136tqot 1 tablet by mouth onceRimegepant (Nurtec Odt) 75 mg tablet,disintegrating Discontinued 75 MG PO Once April 04, 2024 12:00am April 23, 2024 1:49pmStart: 20-25-1315mjop 1 tablet by mouth every twenty- four hours as needed for headacheNurtec ODT 75 mg oral tablet, disintegrating 75 mg = 1 tab(s), Oral, q24hr, PRN Migraine headache, Refills(s) 0 Start Date: 02/12/24 Status: OrderedStart: 07-12-2023 End: 98-12-7178Ixyyq: 07-12-2023 End: 74-75-7118xzjk 1 tablet by mouth once daily as needed for headache Rimegepant (Nurtec Odt) 75 mg tablet,disintegrating Discontinued 75 MG PO Daily as needed for migraine headache July 12, 2023 1:00am March 13, 2024 1:06pmrOPINIRole 0.5 mg oral tablet (20 sources)Nonergot Dopamine AgonistStart: 04-04-2024 End: 33-50-1483Cquck: 04-04-2024 End: 14-15-2026mhdo 1 tablet by mouth three times dailyRopinirole 0.5 mg tablet Discontinued 0.5 MG PO Three times daily 270 90 July 04, 2024 4:43pm August 11, 2024 4:40amStart: 04-01-2018 End: 24-82-2101Yctzc: 04-01-2018 End: 58-42-8939Xzfge: 01-24-2011 End: 60-12-8671bowt 1 tablet by mouth three times dailyropinirole 1 mg Tab 1 mg = 1 tab(s), Oral, TID, Refills(s) 0 Start Date: 02/12/24 Status: Ordered Repeat number: 1Sennosides (Senna Laxative) 8.6 mg tablet (12 sources)Start: 03-03-2024 End: 28-14-9750xxto 1 tablet by mouth twice dailySennosides (Senna Laxative) 8.6 mg tablet Discontinued 8.6 MG PO Twice daily March 02, 2024 11:00pm March 08, 2024 5:26pmStart: 03-03-2024 End: 84-02-4579ltbr 1 tablet by mouth twice dailySennosides (Senna Laxative) 8.6 mg tablet Discontinued 8.6 MG PO Twice daily March 03, 2024 12:00am March 08, 2024 6:26pmStart: 94-17-1195mczl 1 tablet by mouth twice daily Sennosides (Senna Laxative) 8.6 mg tablet Active 8.6 MG PO Twice daily March 03, 2024 12:00amsulfamethoxazole 800 mg / trimethoprim 160 mg oral tablet (11 sources)Dihydrofolate Reductase Inhibitor Antibacterial, Sulfonamide AntimicrobialStart: 04-19-2024 End: 00-80-4151Zbodm: 04-19-2024 End: 04-18-7694wrso 1 tablet by mouth twice dailySulfamethoxazole-Trimethoprim 800-160 mg tablet Discontinued 1 TAB PO Twice daily April 19, 2024 1:00am April 23, 2024 1:50pmTc-99m tetrofosmin (Myoview) injection 10 millicurie (1 source)Start: 02-05-2025 End: millicurie, intravenous, Once in imaging, Starting on Mon02/05/25 at 0817, For 1 dose, Auakuixcgd57 to 90 minutes prior to imaging unless otherwise indicated.Tc-99m tetrofosmin (Myoview) injection 30 millicurie (1 source)Start: 02-05-2025 End: millicurie, intravenous, Once in imaging, Starting on Mon02/05/25 at 0927, For 1 dose, Etyiayypwb35 to 90 minutes prior to imaging unless otherwise indicated.Toradol 30 mg/ml (20 sources)Start: 35-02-4166Wremmnx 30 mg/ml Jul, 60 mgStart: 13-42-3519Avvfjeq 30 mg/ml Jul, 60 mgStart: 43-61-0938Dtcavlm 30 mg/ml Jul, 60 mgStart: 60-96-1779Znfsfgd 30 mg/ml Jun, 60 mgtraZODone hydrochloride 50 mg oral tablet (20 sources)Serotonin Reuptake InhibitorStart: 07-24-2019 End: 43-35-6777Ttcwx: 07-24-2019 End: 16-87-5810bmyj 1 tablet by mouth at bedtimeTrazodone 50 mg tablet Discontinued 50 MG PO Bedtime July 24, 2019 1:00am July 14, 2020 1 2:40pmTriamcinolone (20 sources)CorticosteroidStart: 31-98-0640ZFSVTNI - 10 mg Sep, 1 cc varenicline 1 mg oral tablet (18 sources)Partial Cholinergic Nicotinic AgonistStart: 07-14-2020 End: 54-33-0507euem 1 tablet by mouth twice daily, then take 1 tablet by mouth onceVarenicline Tartrate (Chantix Continuing Month Box) 1 mg tablet Discontinued 1 MG PO Twice daily July 14, 2020 1:00am July 12, 2023 6:30pmvitamin b12 1 mg oral capsule (1 source)Vitamin N76Fuihn: 11-05-2024 End: 11-05-2024 Problems Active Problems Problem ClassificationProblemDateDocumented DateEpisodic/ChronicAbdominal pain (20 sources)Abdominal pain; Translations: [Unspecified abdominal pain]Episodic Acute and unspecified renal failure (20 sources)Renal failure syndrome; Translations: [Unspecified kidney failure] ChronicAcute cerebrovascular disease (1 source)Acute cerebrovascular diseaseOnset: 85-28-6468Sorvd myocardial infarction (20 sources)Myocardial infarction; Translations: [Acute myocardial infarction, unspecified]Onset: 985224-85-4577TjxkdgqTviiknhzjrnoxv/social admission (13 sources)Drug therapy finding; Translations: [Other specified counseling] 66-96-6893QsvyowjrWiagnoy disorders (20 sources)Anxiety; Translations: [Anxiety disorder, unspecified]Onset: 07-27-2021 Resolved: 33-49-8876DcgzmsaGcplkl (20 sources)Asthmatic bronchitis; Translations: [Unspecified asthma, uncomplicated]Onset: 679857-35-8417OsnocehGmoumap dysrhythmias (20 sources)Atrial fibrillation; Translations: [Unspecified atrial fibrillation] Onset: 345835-83-0647FaldctbVjfrhrx kidney disease (20 sources)Chronic kidney disease stage 3; Translations: [Chronic kidney disease, stage 3 (moderate)]Onset: 10-19-2021 Resolved: 20-39-3285WcyttfwQrirnmp kidney disease (7 sources)Chronic kidney disease; Translations: [Stage 3 chronic kidney disease, unspecified whether stage 3aor 3b CKD]Onset: 10-18-2021 Resolved: 00-05-5291Lgdhhxi obstructive pulmonary disease and bronchiectasis (20 sources)Pulmonary emphysema; Translations: [Chronic obstructive lung disease]Onset: 954959-76-1215BkaicefDngugkxnzk heart failure; nonhypertensive (20 sources)Congestive heart failure; Translations: [Heart failure]Onset: 331938-01-9222RfmrvkkVvmmofht atherosclerosis and other heart disease (20 sources)Disorder of coronary artery; Translations: [Coronary atherosclerosis of unspecified type of vessel,telida or graft]Onset: 11-05-2013 Resolved: 01-04-9714PqnxhbqPyjjjozidj and other anemia (1 source)Anemia in chronic kidney disease; Translations: [Anemia in chronic kidney disease]Onset: 16-81-6070EulcbcwBrajyfqmfq and other anemia (1 source)Iron deficiency -80-8585LyluadsnHcsixldv, dementia, and amnestic and other cognitive disorders (1 source)DementiaOnset: 339774-86-6234BvglwzfJjcmxgqf mellitus with complications (20 sources)Peripheral vascular disorder due to diabetes mellitus; Translations: [Type 2 diabetes mellitus withother circulatory complications]Onset: 06-23-2021 Resolved: 08-56-4050EqjftauOhbzulj on above:Outside Source Comment: Comment on above: w/ surrounding cellulitisDiabetes mellitus without complication (20 sources)Diabetes mellitus; Translations: [Diabetes mellitus without mention of complication, type II or unspecified type, not stated as uncontrolled]Onset: 106905-08-8278DnwndokVwzxphej of white blood cells (1 source)Leukocytosis; Translations: [Elevated white blood cell count, unspecified]Onset: 77-33-1822UuwzupeDfadyphux of lipid metabolism (20 sources)Hyperlipidemia; Translations: [Other and unspecified hyperlipidemia] Onset: 07-17-2015 Resolved: 17-27-6051HvaaeqkWhdpdte on above:Outside Source Comment: Overview: Cont home atorvaEsophageal disorders (20 sources)Gastroesophageal reflux disease; Translations: [Gastro-esophageal reflux disease without esophagitis]Onset: 07-27-2021 Resolved: 85-67-7714DpzkrecTcszgpiwi hypertension (20 sources)Hypertensive disorder; Translations: [Essential (primary) hypertension]Onset: 11-05-2013 Resolved: 682272-81-1564NufnbpcAsdsbuhj (20 sources)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; Translations: [Atherosclerosis of telida arteries of extremities with gangrene, right leg] Onset: 10-18-2023 Resolved: 23-47-8001SfsxlvbSzwcfgim (1 source)Fmucyele89-87-9930ZofpmijHrwx and other crystal arthropathies (20 sources)Gout; Translations: [Gout, unspecified]Onset: 02-15-2022 Resolved: 65-81-6833PfebfeqSsmwgjci; including migraine (9 sources)Migraine; Translations: [Migraine, unspecified, not intractable, without status migrainosus]Onset: 679816-98-5277WphzwoeVvxssroiuie of prostate (20 sources)Benign prostatic hypertrophy with outflow obstruction; Translations: [Benign prostatic hyperplasia with lower urinary tract symptoms]Onset: 14-22-6888XuhuvfyXzeijpalkutj with complications and secondary hypertension (20 sources)Hypertensive renal disease; Translations: [Hypertensive chronic kidney disease with stage 1 throughstage 4 chronic kidney disease, or unspecified chronic kidney disease]Onset: 09-21-2021 Resolved: 03-78-3354RykmevvBmpzqplgu arthritis and osteomyelitis (except that caused by tuberculosis or sexually transmitted disease) (20 sources)Acute osteomyelitis of right foot; Translations: [Other acute osteomyelitis, right ankle and foot]Onset: hronic Inflammatory conditions of male genital organs (20 sources)Orchitis; Translations: [Orchitis]Onset: 56-61-4424Cyvzjjna Nutritional deficiencies (20 sources)Vitamin D deficiency; Translations: [Vitamin D deficiency, unspecified]Onset: 02-15-2022 Resolved: 27-84-3268ZilzvnbQocorgcjqax deficiencies (20 sources)Cobalamin deficiency; Translations: [Deficiency of other specified B group vitamins]Onset: 482206-25-7996RcmejclyRqhrbmfqlfqexq (20 sources)Arthritis; Translations: [Unspecified osteoarthritis, unspecified site]Onset: 069189-40-8913VsdjhjaIbbyk acquired deformities (20 sources)Contracture of joint of hand; Translations: [Contracture, unspecified hand]ChronicOther aftercare (20 sources)Long-term current use of insulin; Translations: [MCFP (current) use of insulin]52-75-0363OyjerhukNyfhu and ill-defined heart disease (19 sources)Heart cxygnmg54-92-6470GbegwvmRzqfo bone disease and musculoskeletal deformities (15 sources)History of amputation of right leg through tibia and fibula; Translations: [Acquired absence of right leg below knee]Onset: 02-27-2025 87-30-5659XvcvqfxXjgwdwj on above:02/2024 [facility] [place] [facility] [place] Simon Hernández VascularOther bone disease and musculoskeletal deformities (9 sources)Acquired absence of right leg below knee; Translations: [Below knee amputation status]Onset: 494380-29-0708EcexxjqCvjcw bone disease and musculoskeletal deformities (1 source)Amputated right lower limb below knee; Translations: [Acquired absence of right leg below knee]Onset: 07-91-9858UskztxrJecbl circulatory disease (1 source)Other specified symptoms and signs involving the circulatory and respiratory systems; Translations:[Other specified symptoms and signs involving the circulatory and respiratory systems]Onset: 48-60-2281HfggncxsYnpmz circulatory disease (3 sources)Critical lower limb ischemiaOnset: 342200-66-7234Dkybmjyw Comment on above:Outside Source Comment: Last Assessment & Plan: Right below-knee amputation. Will do it here at [facility].Other connective tissue disease (20 sources)Pain in limb; Translations: [Pain in leg, unspecified]EpisodicOther connective tissue disease (5 sources)Pain in right legOnset: 10-08-2021 Resolved: 63-92-1829ZcpbyupnFqqbb connective tissue disease (19 sources)Lsnwdovvtngnh14-24-0796JcqtzmriDegbs connective tissue disease (1 source)Pain in left armEpisodicOther connective tissue disease (1 source)Pain in left cfh27-22-1239MqyssrrwCdqopkt on above:Outside Source Comment: Comment on above: 2/2 to fall. No fracture.Other diseases of bladder and urethra (7 sources)Mass of urinary bladder; Translations: [Other specified disorders of bladder]05-91-8567UaejsivCfhgq diseases of bladder and urethra (1 source)Other specified disorders of bladderChronicOther diseases of bladder and urethra (1 source)Neurogenic nronyno09-89-2420OoietwbYqjvw diseases of kidney and ureters (2 sources)Urinary tract obstruction; Translations: [Other obstructive and reflux uropathy]Onset: 18-24-8334SnvlxufcUigwj disorders of stomach and duodenum (11 sources)Disorder of stomach; Translations: [Other diseases of stomach and duodenum]34-52-4993PvpwpofdEdoxc disorders of stomach and duodenum (2 sources)Other diseases of stomach and duodenum; Translations: [Other specified disorders of stomach and duodenum]43-26-5295GjumspfgLqaeu endocrine disorders (20 sources)Testicular hypofunction; Translations: [Testicular hypofunction] ChronicOther hereditary and degenerative nervous system conditions (20 sources)Restless legs; Translations: [Restless legs syndrome]Onset: 431967-12-9462CydhkqaWffit hereditary and degenerative nervous system conditions (17 sources)Restless legs syndrome; Translations: [Restless legs syndrome (RLS)] Onset: 07-27-2021 Resolved: 47-11-5687BvrafpgQwsnt injuries and conditions due to external causes (15 sources)Hypothermia; Translations: [Hypothermia, initial encounter] 94-73-9412BbqudjdeFzkuz injuries and conditions due to external causes (4 sources)Hypothermia, initial encounter; Translations: [Hypothermia]03-08-2024 EpisodicOther lower respiratory disease (20 sources)Solitary nodule of lung; Translations: [Solitary pulmonary nodule] EpisodicOther male genital disorders (20 sources)Impotence of organic origin; Translations: [Male erectile dysfunction, unspecified]ChronicOther male genital disorders (16 sources)Male erectile dysfunction, unspecified; Translations: [Erectile dysfunction]Onset: 07-27-2021 Resolved: 99-72-1933QfjjaovHthxa nervous system disorders (20 sources)Neuropathy; Translations: [Polyneuropathy, unspecified]08-12-2024 ChronicOther nervous system disorders (16 sources)Unspecified mononeuropathy of bilateral lower limbs; Translations: [Neuropathic pain of both feet]ChronicOther nervous system disorders (20 sources)Chronic pain syndrome; Translations: [Chronic pain syndrome]Chronic Other nervous system disorders (20 sources)Cervical myelopathy; Translations: [Disease of spinal cord, unspecified]ChronicOther nervous system disorders (20 sources)Chronic pain; Translations: [Other chronic pain]ChronicOther nervous system disorders (20 sources)Bilateral carpal tunnel syndrome; Translations: [Carpal tunnel syndrome, bilateral upper limbs]ChronicOther nervous system disorders (20 sources)Neuropathy of lower limb; Translations: [Unspecified mononeuropathy of bilateral lower limbs]ChronicOther nervous system disorders (9 sources)Carpal tunnel syndrome of right wrist; Translations: [Carpal tunnel syndrome, right upper limb]Onset: 525018-80-1248JhlkhptAwtyy nervous system disorders (9 sources)Polyneuropathy; Translations: [Polyneuropathy, unspecified]Onset: 313218-33-5532DitdmcuGduam nervous system disorders (20 sources)Carpal tunnel syndrome; Translations: [Carpal tunnel syndrome, unspecified upper limb]Onset: 136593-08-0590DsqxgatIlsnr nervous system disorders (7 sources)Polyneuropathy, unspecified; Translations: [Mononeuritis of unspecified site]Onset: 626968-56-3064EenkrkzPwvqg nervous system disorders (1 source)Other chronic pain; Translations: [Other chronic pain]Onset: 79-23-5843XmerzofXpmkm nervous system disorders (1 source)Metabolic eamdwxqtomgbpx75-50-7320SjznhuiNmzyt nervous system disorders (20 sources)Skin sensation disturbance; Translations: [Paresthesia of skin] EpisodicOther nervous system disorders (1 source)Other acute postprocedural pain; Translations: [Other acute postprocedural pain]Onset: 77-79-3475PtbfgxgxUsetc nervous system disorders (20 sources)Tremor; Translations: [Tremor, unspecified]77-32-0033VxwneamiKgjmb nervous system disorders (8 sources)Paresthesia; Translations: [Paresthesia of skin]57-41-5969Igpaldmm Other nervous system disorders (8 sources)Numbness; Translations: [Anesthesia of skin]80-75-5639RpmhpiopWmsjq nervous system disorders (9 sources)Anesthesia of skin; Translations: [Disturbance of skin sensation] Onset: 358868-45-1811AvingdstDdpts nervous system disorders (9 sources)Paresthesia of skin; Translations: [Disturbance of skin sensation] Onset: 620622-06-0508RcmtumwoNgelt non-traumatic joint disorders (1 source)Hip wdoa52-32-5303RiqvnxibQwqkq nutritional; endocrine; and metabolic disorders (20 sources)Obesity; Translations: [Obesity, unspecified]ChronicOther nutritional; endocrine; and metabolic disorders (20 sources)Obese class II; Translations: [Body mass index (BMI) 35.0-35.9, adult]ChronicOther nutritional; endocrine; and metabolic disorders (20 sources)Obese class I; Translations: [Body mass index (BMI) 34.0-34.9, adult]76-18-7919QivpnvfUdqym nutritional; endocrine; and metabolic disorders (4 sources)Body mass index (BMI) 34.0-34.9, adult; Translations: [Body Mass Index 34.0-34.9, adult]Onset: 10-19-2021 Resolved: 62-43-8079WppowstPriyq nutritional; endocrine; and metabolic disorders (14 sources)Hyperbilirubinemia; Translations: [Other disorders of bilirubin metabolism]01-63-4523QtowxuyLauye nutritional; endocrine; and metabolic disorders (4 sources)Other disorders of bilirubin metabolism; Translations: [Jaundice, unspecified, not of ]Onset: 835577-11-8080TdpagdzDphbq nutritional; endocrine; and metabolic disorders (9 sources)Body mass index 30+ - obesity; Translations: [Body mass index (BMI) 34.0-34.9, adult]99-07-2527KbfpvxhLjcvs nutritional; endocrine; and metabolic disorders (10 sources)Hypomagnesemia; Translations: [Hypomagnesemia]48-53-9973XutfcwrCqwcx nutritional; endocrine; and metabolic disorders (16 sources)Hypomagnesemia; Translations: [Disorders of magnesium metabolism] Onset: 310692-77-3711RozenhhYwohb nutritional; endocrine; and metabolic disorders (9 sources)Hypocalcemia; Translations: [Hypocalcemia]44-91-1200NecvuzvOehlc nutritional; endocrine; and metabolic disorders (17 sources)Hypocalcemia; Translations: [Hypocalcemia]Onset: 08-11-2024 08-03-1612NtvzsvlJzffd nutritional; endocrine; and metabolic disorders (6 sources)Overweight in adulthood with body mass index of 25 or more but less than 30; Translations: [Overweight]EpisodicOther screening for suspected conditions (not mental disorders or infectious disease) (17 sources)Imaging result abnormal; Translations: [Abnormal findings on diagnostic imaging of other specified body structures]75-28-5152OkrnqbaYdjbd screening for suspected conditions (not mental disorders or infectious disease) (20 sources)Patient encounter status; Translations: [Encounter for screening for malignant neoplasm of colon]Onset: 07-27-2021 Resolved: 89-28-3444EtbjxhfyXdhnxjotjf and visceral atherosclerosis (20 sources)Intermittent claudication; Translations: [Peripheral vascular disease, unspecified]Onset: 000532-63-4108JlhikcoDdnxerpzw (except that caused by tuberculosis or sexually transmitted disease) (1 source)Ktovruswg75-85-2907AehijspjIztaygmr codes; unclassified (20 sources)Sleep apnea; Translations: [Sleep apnea, unspecified]Onset: 658722-19-2970SxapepyLnjvakfr codes; unclassified (20 sources)Peripheral edema; Translations: [Edema, unspecified]EpisodicResidual codes; unclassified (20 sources)Amnesia; Translations: [Other amnesia]EpisodicResidual codes; unclassified (20 sources)Difficulty sleeping ; Translations: [Sleep disorder, unspecified] EpisodicResidual codes; unclassified (20 sources)Insomnia; Translations: [Insomnia, unspecified]EpisodicResidual codes; unclassified (20 sources)FH: premature coronary heart disease; Translations: [Family history of ischemic heart disease and other diseases of the circulatory system] 73-69-4663PcjronnhJcgssmg on above:Reports mother had quadruple bypass at age of 45Residual codes; unclassified (20 sources)Tobacco user; Translations: [Tobacco use]Onset: EpisodicComment on above:Added secondary to social history documentation. Residual codes; unclassified (2 sources)Other specified postprocedural states; Translations: [Other specified postprocedural states]Onset: 81-66-7133QmbjuwqaKvexvxgi codes; unclassified (12 sources)Noncompliance with medication regimen; Translations: [Noncompliance with medication regimen]90-27-5206TljbgqpwInyfkuma codes; unclassified (1 source)H/O Spinal -27-7220ZwucdvyiIqxvodan codes; unclassified (1 source)History of ifulivbafnz59-74-3627JlmtlzqoVpiauzrppcu; intervertebral disc disorders; other back problems (20 sources)Degeneration of lumbar intervertebral disc; Translations: [Other intervertebral disc degeneration, lumbar region]ChronicSubstance-related disorders (20 sources)Smoker; Translations: [Nicotine dependence, unspecified, uncomplicated]Onset: 378637-70-6388MpghvnjXxgdsrt on above:Added secondary to documentation in Social History.Unclassified (1 source)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 ([facility]) [I70.261]Onset: 63-75-3663Datzlfixnxkk (1 source)New PatientOnset: 25-57-7337Coizbfesyjmc (4 sources)Patient encounter nuntxr06-46-7560Ubfmjxqkuajv (1 source)Chronic ulcer of right hcxn48-79-0940Epqqqxvgtxwf (1 source)Chronic ulcer of right ixez20-36-9403Wlasutqgahnx (1 source)Long-term current use of drug -60-2143Wygmviwnluzz (1 source)Peripheral arterial diseaseOnset: 725592-13-5807Jqnqycwzcdqk (1 source)Pressure injury of right ankle stage IIIOnset: Unclassified (1 source)Puncture wound of right footOnset: Past or Other Problems Problem ClassificationProblemDateDocumented DateEpisodic/ChronicAcute and unspecified renal failure (18 sources)Acute renal failure syndrome; Translations: [Acute kidney failure, unspecified]Onset: 599234-45-8352RsnzfkndPkhpmuh on above:Outside Source Comment: Comment on above: on CJD1tUsuehea dysrhythmias (14 sources)Palpitations; Translations: [Palpitations]Onset: 03-27-2023 05-05-3584ItkivsesYuwxayp ulcer of skin (20 sources)Pressure ulcer of right ankle, stage 3; Translations: [Pressure ulcer, ankle]Onset: 11-08-2023 Resolved: 699236-98-8842VnhklysOvgpughzxrlkm of surgical procedures or medical care (20 sources)Disorder of amputation stump; Translations: [Other complications of amputation stump]Onset: 11-08-2023 Resolved: 062626-60-9876CjqtycmcWdqvxdmg atherosclerosis and other heart disease (2 sources)Coronary angioplasty status; Translations: [Coronary angioplasty status]Onset: 19-89-3650ZxmbwwudTyavivxnsb and other anemia (14 sources)Anemia, unspecified; Translations: [Anemia, unspecified]Onset: 52-81-5155TooocdhsBapyxonjzw and other anemia (20 sources)Anemia; Translations: [Anemia, unspecified]Onset: 02-12-2024 79-51-1703WttrxqszOaswl and electrolyte disorders (20 sources)Hypokalemia; Translations: [Hypokalemia]Onset: 519462-06-5069 EpisodicGenitourinary symptoms and ill-defined conditions (20 sources)Retention of urine; Translations: [Retention of urine, unspecified] Onset: 29-38-2084TfwtzgqdGhzzqocp; including migraine (20 sources)Headache; Translations: [Headache]Onset: EpisodicHeadache; including migraine (5 sources)Headache; including migraineHeart valve disorders (20 sources)Heart murmur; Translations: [Cardiac murmur, unspecified]Onset: 154813-52-8627UaggbqgrEvtxzsk and fatigue (1 source)AstheniaOnset: 336835-17-8924XhmrvztmNexn disorders (18 sources)Mood disordersOnset: Nausea and vomiting (20 sources)Nausea and vomiting; Translations: [Nausea with vomiting, unspecified]Onset: 660322-55-6106XatijfeoGyphaisky of unspecified nature or uncertain behavior (1 source)Neoplasm of uncertain behavior of skinOnset: 02-15-2022 Resolved: 39-19-0319EhxuerayGttxepkknxo chest pain (20 sources)Chest pain; Translations: [Chest pain, unspecified]Onset: 11-10-2023 99-84-3196SvnyhfcmDzdba aftercare (12 sources)Follow-up orthopedic assessment; Translations: [Encounter for orthopedic aftercare following surgical amputation]Onset: EpisodicOther aftercare (2 sources)Surgical follow-up; Translations: [Encounter for orthopedic aftercare following surgical amputation]Onset: 103040-47-0258ZfumgzdpOadha circulatory disease (14 sources)Low blood pressure; Translations: [Hypotension, unspecified]Onset: 192453-24-0129GndomdmqByswt circulatory disease (1 source)Poor peripheral circulation; Translations: [Other specified symptoms and signs involving the circulatory and respiratory systems]80-09-9631Fqeapdwz Other connective tissue disease (1 source)Pain in left legOnset: 10-08-2021 Resolved: 11-22-7491BxdypiglBorze connective tissue disease (20 sources)Fibromyalgia; Translations: [Fibromyalgia]Onset: 10-30-2023 00-82-0026DmoqklrbGgvqj connective tissue disease (20 sources)Muscle weakness; Translations: [Muscle weakness (generalized)]Onset: 124200-47-0399PipqfvkcLvsfu connective tissue disease (13 sources)Spasm; Translations: [Other muscle spasm]Onset: EpisodicOther gastrointestinal disorders (20 sources)Diarrhea; Translations: [Diarrhea, unspecified]77-68-0557Ncwixcvj Other hematologic conditions (1 source)Other abnormality of red blood cellsOnset: 02-15-2022 Resolved: 20-24-8336WnqecwhgNtpfb lower respiratory disease (4 sources)Other nonspecific abnormal finding of lung field; Translations: [OTH NONSPECIFIC ABN FIND LNG FIELD]Onset: 00-01-7221YyrjqhmuTimuw lower respiratory disease (9 sources)Dyspnea; Translations: [Shortness of breath]Onset: 01-01-2024 22-65-7558VopzlxfyEguly lower respiratory disease (1 source)Shortness of breath; Translations: [Shortness of breath]Onset: 53-62-9376YveskfztSrbmp male genital disorders (20 sources)Disorder of male genital organ; Translations: [Hydrocele, unspecified]Onset: 330188-82-0209VfjkdyhvVfjls nervous system disorders (9 sources)Pain in limb - multiple; Translations: [Paresthesia of skin]Onset: 613423-16-0860JzmxeypgRyqmm nervous system disorders (9 sources)Paresthesia of lower extremity; Translations: [Paresthesia of skin] Onset: 016049-96-5023CyrehmmdZbgzn nervous system disorders (20 sources)Finding related to ability to move; Translations: [Other abnormalities of gait and mobility]Onset: 563136-14-6651PomfrtdcWufxm non- traumatic joint disorders (1 source)Pain in right hipOnset: 07-27-2021 Resolved: 42-65-9351OfovsrekUxpeb nutritional; endocrine; and metabolic disorders (1 source)Abnormal weight lossOnset: 07-27-2021 Resolved: 34-92-8348DnlahscfZjxmetkj codes; unclassified (20 sources)Edema of lower extremity; Translations: [Localized edema]Onset: 377034-33-2447NaauynohJtceonnj codes; unclassified (1 source)Insomnia, unspecifiedOnset: 07-27-2021 Resolved: 31-20-3144NekebulaHkcbyfhd codes; unclassified (20 sources)Altered mental status; Translations: [Altered mental status, unspecified]Onset: 293199-62-4598SmometeaVbumgoao codes; unclassified (9 sources)Altered mental status, unspecified; Translations: [Altered mental status]Onset: 269235-42-3345QerlaupbTehomxou codes; unclassified (1 source)Disorientated; Translations: [Disorientation, unspecified]03-15-2024 EpisodicResidual codes; unclassified (1 source)Chronic back painOnset: 547452-77-0164AqnlafqzUnxjoqsf codes; unclassified (1 source)Pain, unspecified; Translations: [Pain, unspecified]Onset: 03-12-2024 EpisodicScreening and history of mental health and substance abuse codes (16 sources)Ex-smoker; Translations: [Personal history of tobacco use]Onset: 777077-47-1656OvvnakojRbctqbs on above:qauit 07/2020;Septicemia (except in labor) (20 sources)Sepsis, unspecified organism; Translations: [Bacterial sepsis]Onset: 03-03-2023 Resolved: 18-16-2565KoudzzcvRsum and subcutaneous tissue infections (20 sources)Abscess of right foot; Translations: [Cutaneous abscess of right foot]Onset: 08-04-2023 Resolved: 558105-20-9029WyjqymtoAsrcsukmxhe; intervertebral disc disorders; other back problems (20 sources)Neck pain; Translations: [Cervicalgia]Onset: 033113-83-6404 EpisodicSyncope (20 sources)Syncope; Translations: [Syncope and collapse]Onset: 03-04-2024 20-80-6118HuowrlguFjofbihdvahd (1 source)History of amputation of right leg through tibia and inbtvi80-03-8669 Urinary tract infections (2 sources)Urinary tract infection, site not specified; Translations: [Acute urinary tract infection]Onset: 55-41-8771PvzarzpaJjluybp on above:Outside Source Comment: Comment on above: Klebsiella Oxytoca Results Test NameValueInterpretationReference RangeFacilityReminderson 02-28-2025 RemindersReminders From: Clair Valverde To: EU - Administrative; Sent: 07/05/2024 09:08:37 EST Show up: 02/02/2025 10:08:00 EDT Subject: 1 yr f/u w/psa Due Date/Time: 05/27/2025 09:08:00 EST Reminder/Recall Pt needs scheduled for 1yr f/u w/psa w/PRW in May 2025. LVm w/ patient stating they needed to call and get appointment scheduled. PT was scheduled and no showed, not trackable.[facility] Heart Perfusion W stress and W radionuclide Sachin 88-95-6678Gidlgm BDAiscan Myoview cardiac perfusion stress test. No evidence of ischemia or myocardial infarction by perfusion imaging. Normal left ventricular systolic function, ejection fraction 61%. When compared to a study from 2022, no significant interval changes were seen. Signed by: Pascale Arnold 02/05/2025 6:05 PM Dictation workstation: [id number] MMODALInterpreted By: Pascale Arnold, Italo Fernando STUDY: MYOCARDIAL PERFUSION STRESS TEST WITH LEXISCAN Performing facility: [facility], [address], [address], [place] [address] [facility] Provider: Pascale Arnold MD, [facility] PCP: Dr. Wm Lynch Supervising provider: Lui Schmidt DO, [facility] INDICATION: Signs/Symptoms: ,R07.9 Chest pain, unspecified HISTORY: Gender: M; Age: 59 y/o ; Height: HT 182.9 cm cm; Weight: WT 95.709 kg kg. Chest Pain; CAD; High Cholesterol; Diabetes; SOB; COPD; Quit smoking 4 years ago. Cardiac catheterization on 2017. PTCA on 2017. COMPARISON: Previous nuclear testing completed at [facility]. ACCESSION NUMBER(S): [id number] ORDERING CLINICIAN: PASCALE ARNOLD TECHNIQUE: ONE DAY [...] There was no evidence of attenuation artifact. MMODALPascale Arnold MD - 02/05/2025 Interpreted By: Arnold, Italo Ashraf STUDY: MYOCARDIAL PERFUSION STRESS TEST WITH LEXISCAN Performing facility: [facility], [address], [address], [place] [address] [facility] Provider: Pascale Arnold MD, [facility] PCP: Dr. Wm Lynch Supervising provider: Lui Schmidt DO, [facility] INDICATION: Signs/Symptoms: ,R07.9 Chest pain, unspecified HISTORY: Gender: M; Age: 59 y/o ; Height: HT 182.9 cm cm; Weight: WT 95.709 kg kg. Chest Pain; CAD; High Cholesterol; Diabetes; SOB; COPD; Quit smoking 4 years ago. Cardiac catheterization on 2017. PTCA on 2017. COMPARISON: Previous nuclear testing completed at [facility]. ACCESSION NUMBER(S): [id number] ORDERING CLINICIAN: PASCALE ARNOLD TECHNIQUE: ONE DAY [...] Pascale Arnold 02/05/2025 6:05 PM Dictation workstation: [id number] [facility] Work Phone: [facility] Work Phone: Radiology Study observation (narrative)[facility] Work Phone: NUCLEAR STRESS TESTon 24-27-8782XKCJIIO STRESS TEST Interpreted By: Pascale Arnold, and Orquidea Fernando STUDY: MYOCARDIAL PERFUSION STRESS TEST WITH LEXISCAN Performing facility: [facility], [address] [place] [address], [address] Provider: Pascale Arnold MD, [facility] PCP: [...] Previous nuclear testing completed at [facility]. ACCESSION NUMBER(S): [id number] ORDERING CLINICIAN: PASCALE ARNLOD TECHNIQUE: ONE DAY protocol. Stress injection: Date:02-05-25, [...] Pascale Arnold 02/05/2025 6:05 PM Dictation workstation: [id number] A1C with Estimated Average Gluon 94-40-6604Fomvsgd [Mass/Vol]192 mg/dLNormHCA Florida Central Tampa Emergency Physician GroupComment on above:Result Comment: PERFORMED BY:[address] [place], [place] [phone] MEDICAL DIRECTORBREANNE RUTHERFORD M.D.Performed By: #### A1C [facility] eA ####[address] [place], [place] [address]MNHFvS1h (Bld) [Mass fraction]8.3 %High4.3-5.6The [facility] Physician [facility] County HospitalComment on above:Result Comment: Increased risk for diabetes: 5.7 - 6.4 diabetes: >6.4 glycemic control for adults with diabetes: <7.0Performed By: #### A1C [facility] eA ####[address] [address]XBLOeajzyk aminotransferase [Enzymatic activity/volume] in Serum or PlasmaOrdered By: Teresa Lynch on 76-78-3496KNA [Catalytic activity/Vol]Alanine aminotransferase [Enzymatic activity/volume] in Serum or PlasmaTuscarawas HospitalAlbumin [Mass/volume] in Serum or Plasma by Bromocresol green (BCG) dye binding methoOrdered By: Teresa Lynch on 22-18-5194Wxhmere BCG dye [Mass/Vol] Albumin [Mass/volume] in Serum or Plasma by Bromocresol green (BCG) dye binding metho3.5-5.7FWhite HospitalAlkaline phosphatase [Enzymatic activity/volume] in Serum or PlasmaOrdered By: Teresa Lynch on 93-96-9508EKQ [Catalytic activity/Vol]Alkaline phosphatase [Enzymatic activity/volume] in Serum or WmeqaoSuzw47-864GiglpwoxrTuscarawas HospitalAnisocytosis LM Ql (Bld)Ordered By: Maurice Francis on 99-61-3974Dohinyzhbcuu Ql (Bld)Anisocytosis [Presence] in Blood by Light microscopyTuscarawas Hospital Appearance of UrineOrdered By: Amina Fagan on 04-74-9962Iwkedcqxse (U)Urine appearanceCleOhio State East HospitalAspartate aminotransferase [Enzymatic activity/volume] in Serum or PlasmaOrdered By: Teresa Lynch on 17-92-3212TZS [Catalytic activity/Vol]Aspartate aminotransferase [Enzymatic activity/volume] in Serum or Admppi80-93OvieqthzfTuscarawas Hospital Basophils Auto (Bld) [#/Vol]Ordered By: Maurice Francis on 66-03-5941Jbprdbqvo (Bld) [#/Vol]Automated basophil count0.0-0.2FWhite Hospital Basophils/100 WBC Auto (Bld)Ordered By: Maurice Francis on 04-09-8761Vphpkuuyr/100 WBC (Bld)Automated basophil %.Tuscarawas HospitalBilirubin Test strip Ql (U)Ordered By: Amina Fagan on 91-13-8867Aepjktfgd Ql (U) Bilirubin.total [Presence] in Urine by Test stripNegativeTuscarawas HospitalBilirubin.total [Mass/volume] in Serum or PlasmaOrdered By: Teresa Lynch on 63-42-3570Gosbqmjsb [Mass/Vol]Bilirubin.total [Mass/volume] in Serum or Plasma0.3-1.0Tuscarawas HospitalBlood estimated average glucose determination by estimation from glycated hemoglobinOrdered By: Teresa Lynch on 27-08-6001Cxflbri glucose Estimated from glycated hemoglobin (Bld) [Mass/Vol] Glucose mean value [Mass/volume] in Blood Estimated from glycated hemoglobin Tuscarawas HospitalCalcium [Mass/volume] in Serum or PlasmaOrdered By: Teresa Lynch on 89-89-2311Naxcznd [Mass/Vol]Calcium [Mass/volume] in Serum or Plasma8.6-10.3FWhite HospitalCarbon dioxide, total [Moles/volume] in Serum or PlasmaOrdered By: Teresa Lynch on 96-01-6028YN7 [Moles/Vol]Carbon dioxide, total [Moles/volume] in Serum or Yorhxl36.0-31.0 Tuscarawas HospitalChloride [Moles/volume] in Serum or Plasma Ordered By: Teresa Lynch on 84-73-4416Lrxjspjh [Moles/Vol]Chloride [Moles/volume] in Serum or Sxdvnx57-288PvuiluorsTuscarawas HospitalCholesterol [Mass/volume] in Serum or PlasmaOrdered By: Teresa Lynch on 94-81-1955Zuiojrxpquz [Mass/Vol]Cholesterol [Mass/volume] in Serum or KliymtXvs031-215RvvjowwigTuscarawas HospitalComment on above:Chol less than 200 mg/dl low riskChol 201-239 mg/dl borderline riskChol 240 mg/dl and greater high riskCholesterol in HDL [Mass/volume] in Serum or PlasmaOrdered By: Teresa Lynch on 10-26-2024 Cholesterol in HDL [Mass/Vol]Serum or plasma high density lipoprotein (HDL) cholesterol rlpcmyuwbtkKqj89-92KkztehoqeTuscarawas HospitalComment on above:HDL CHOL ATP-III CLASSIFICATION Cardiovascular RiskHDL > or equal to 60 mg/dL LOWHDL < 40 mg/dL HIGHCholesterol in LDL Calc [Mass/Vol]Ordered By: Teresa Lynch on 25-54-9714Omywqiesnwb in LDL [Mass/Vol]Cholesterol in LDL [Mass/volume] in Serum or Plasma by calculation0-100Tuscarawas HospitalComment on above:LDL ATP III CLASSIFICATIONLDL less than 100 mg/dL OptimalLDL 100-129 mg/dL Near or above ogdzflyLLY117-507 mg/dL Borderline highLDL 160-189 mg/dL HighLDL greater than 189 mg/dL Very highCholesterol in LDL [Mass/volume] in Serum or PlasmaOrdered By: Teresa Lynch on 81-58-1867Ilegxguznnv in LDL [Mass/Vol] Cholesterol in LDL [Mass/volume] in Serum or PlasmaTuscarawas HospitalComment on above:LDL ATP III CLASSIFICATIONLDL less than 100 mg/dL OptimalLDL 100-129 mg/dL Near or above brvgpleYVQ933-234 mg/dL Borderline highLDL 160-189 mg/dL HighLDL greater than 189 mg/dL Very highCholesterol in VLDL Calc [Mass/Vol]Ordered By: Teresa Lynch on 69-14-0335Oblrrobyulm in VLDL [Mass/Vol]Cholesterol in VLDL [Mass/volume] in Serum or Plasma by calculation Tuscarawas HospitalComment on above:Test not performedColor Auto (U)Ordered By: Amina Fagan on 39-00-4116Vopzj (U)Color of Urine by AutoYellow Tuscarawas HospitalComprehensive Metabolic Panelon 10-26-2024 Albumin [Mass/Vol]4.3 g/dLNormal3.5-5.7The [facility] Physician GroupComment on above:Performed By: #### CMP, RENAL ####[address] [address]DZHTfhsydr/Globulin [Mass ratio]1.7 {ratio}NormalThe [facility] Community HospitalComment on above:Performed By: #### CMP, RENAL ####[address] [place], [place] [address]QFDIIS [Catalytic activity/Vol]132 U/GUpsp56-641Nro [facility] HospitalComment on above:Performed By: #### CMP, RENAL ####[address] [address]PPSOXI [Catalytic activity/Vol]16 U/LNormal7-52The [facility] HospitalComment on above:Performed By: #### CMP, RENAL ####[address] [address]OKAYyrcf gap [Moles/Vol]16.4 mmol/LHigh6.0-15.0The [facility] HospitalComment on above:Performed By: #### CMP, RENAL ####[address] [address]LJLJRU [Catalytic activity/Vol]13 U/UEqznlf95-12Gll [facility] HospitalComment on above:Performed By: #### CMP, RENAL ####[address] [place] [place] [address]DTH Bilirubin [Mass/Vol]0.4 mg/dLNormal0.3-1.0The [facility] HospitalComment on above:Performed By: #### CMP, RENAL ####[address] [facility] [place] [address]ITSWkzttxm [Mass/Vol]9.4 mg/dLNormal8.6-10.3The [facility] HospitalComment on above:Performed By: #### CMP, RENAL ####[address] [facility] [place] [address]LKUBvemmexb [Moles/Vol]98 mmol/QJdlxxo81-642Yjx [facility] HospitalComment on above: Performed By: #### CMP, RENAL ####[address], [place] [address]LNPHW0 [Moles/Vol]27.2 mmol/EAwwyum04.0-31.0The [facility] HospitalComment on above:Performed By: #### CMP, RENAL ####[address] [facility], [place] [address]UXO Creatinine [Mass/Vol]2.36 mg/dLHigh0.70-1.30The [facility] HospitalComment on above:Performed By: #### CMP, RENAL ####[address], [place] [address]YTYElxvllbzc GFR30.940 mL/MinNormSouthwest Memorial HospitalComment on above:Performed By: #### CMP, RENAL ####[address] [facility], [place] [address]HGJRpnfdaez (S) [Mass/Vol]2.6 g/dLNoMercy Health St. Charles HospitalComment on above:Performed By: #### CMP, RENAL ####[address] [facility], [place] [address]GUAIubvfor [Mass/Vol]264 mg/bLGxge57-813Vql [facility] Comment on above:Result Comment: Random Glucose Reference Range is dependent on time and content of last meal. Glucose of more than 200 mg/dL in a nonstressed, ambulatory subject supports the diagnosis of Diabetes Mellitus. ADA recommended reference rangePerformed By: #### CMP, RENAL ####[facility] [place], [place] [address]VBEFooxwngxt [Moles/Vol]4.6 mmol/LNormal 3.5-5.1The [facility] Physician GroupComment on above:Performed By: #### CMP, RENAL ####[facility] [place], [place] [address]TOM Protein [Mass/Vol]6.9 g/dLNormal6.4-8.9The [facility] Physician GroupComment on above:Performed By: #### CMP, RENAL ####[address] [place], [place] [address]CWBKtwvbp [Moles/Vol]137 mmol/HAacmeq089-141Wtm [facility] Physician GroupComment on above:Performed By: #### CMP, RENAL ####[facility] [place], [place] [address]GXUVcgs nitrogen [Mass/Vol]33 mg/dLHigh7-25The [facility] Physician [facility] HospitalComment on above:Performed By: #### CMP, RENAL ####[facility] [place], [place] [address]DYZTpgnmwneup [Mass/volume] in Serum or PlasmaOrdered By: Teresa Lynch on 60-69-8133Pjskcukmpi [Mass/Vol]Creatinine [Mass/volume] in Serum or PlasmaHigh0.70-1.30Tuscarawas HospitalCreatinine [Mass/volume] in UrineOrdered By: Amina Fagan on 58-73-2368Tuqzyvgkql (U) [Mass/Vol]Creatinine [Mass/volume] in UrineTuscarawas Hospital Comment on above:No reference range establishedEosinophils Auto (Bld) [#/Vol] Ordered By: Maurice Francis on 76-17-6057Qrrwwyeoooo (Bld) [#/Vol]Automated eosinophil count0.0-0.45Tuscarawas HospitalEosinophils/100 WBC Auto (Bld)Ordered By: Maurice Francis on 65-92-7300Hagqgceksse/100 WBC (Bld) Automated eosinophil %.Tuscarawas HospitalErythrocyte distribution width Auto (RBC) [Ratio]Ordered By: Maurice Francis on 70-99-8426Dinvoadqnpy distribution width (RBC) [Ratio]Erythrocyte distribution width [Ratio] by Automated qhghzCjgf49.0-14.8Tuscarawas HospitalErythrocyte morphology finding [Identifier] in BloodOrdered By: Maurice Francis on 40-36-4662YWT morphology finding Nom (Bld)RBC morphologyTuscarawas Hospital Ferritinon 26-21-0581Kafumxxv [Mass/Vol]8.3 ng/mLLow23.9-336.2The [facility] Physician GroupComment on above:Performed By: #### LILA, [id number], URIC, PTH, FE and TIBC ####[facility] [address] [place] [address] USAFerritin [Mass/volume] in Serum or PlasmaOrdered By: Amina Fagan on 06-12-7645Vptmnxar [Mass/Vol]Ferritin [Mass/volume] in Serum or PlasmaLow 23.9-336.2FWhite HospitalFolate [Mass/volume] in Serum or PlasmaOrdered By: Amina Fagna on 18-55-8061Nxshtp [Mass/Vol]Folate [Mass/volume] in Serum or Plasma>5.9Tuscarawas HospitalComment on above:Folate reference range: >5.9 ng/mlThe WHO technical consultation on folate and vitamin r49gxgscmnfptiz has determined that folate concentrations lessthan 4 ng/ml are considered deficient.Globulin Calc (S) [Mass/Vol]Ordered By: Teresa Lynch on 39-99-1066Gkuxvfzq (S) [Mass/Vol]Serum globulin measurement by calculation (mass/volume)T[facility]carawas HospitalGlucose [Mass/volume] in Serum or PlasmaOrdered By: Teresa Lynch on 97-52-8862Qdqwuqc [Mass/Vol]Glucose [Mass/volume] in Serum or KairivWhyf66-060Wnruseero Regional Medical Center Comment on above:ADA recommended reference rangeRandom Glucose Reference Range is dependent on time and content of last meal. Glucose of more than 200 mg/dL in a nonstressed, ambulatory subject supports the diagnosisof Diabetes Mellitus. Glucose [Mass/volume] in Urine by Test stripOrdered By: Amina Fagan on 46-17-8920Xtigxiw Test strip (U) [Mass/Vol]Glucose [Mass/volume] in Urine by Test stripHighNormalTuscarawas HospitalHematocrit Auto (Bld) [Volume fraction]Ordered By: Maurice Francis on 97-87-6915Ttyxpqjqdn (Bld) [Volume fraction]Hematocrit [Volume Fraction] of Blood by Automated count38.8-50.0 [facility] HospitalHemoglobin A1c/Hemoglobin.total in BloodOrdered By: Teresa Lynch on 07-79-4316SsT6g (Bld) [Mass fraction]Hemoglobin A1c percentage High4.3-5.6FWhite HospitalComment on above:Increased risk for diabetes: 5.7 - 6.4diabetes: >6.4glycemic control for adults with diabetes: &l t;7.0Hemoglobin Test strip Ql (U)Ordered By: Amina Fagan on 10-26-2024 Hemoglobin Ql (U)Hemoglobin [Presence] in Urine by Test stripNegativeTuscarawas HospitalHemoglobin [Mass/volume] in BloodOrdered By: Maurice Francis on 96-85-9841Ggnofgzuny (Bld) [Mass/Vol]Hemoglobin [Mass/volume] in Blood 13.0-17.0T[facility]carawas HospitalIron [Mass/volume] in Serum or Plasma Ordered By: Amina Fagan on 23-60-4754Lubk [Mass/Vol]Iron [Mass/volume] in Serum or AbdpdmWof95-125JecdyyfuqTuscarawas HospitalIron and TIBC Profileon 10-26-2024% Iron Saturation6.9 %Keu32-68Bfu [facility] Physician GroupComment on above:Performed By: #### LILA, [id number], URIC, PTH, FE and TIBC ####[facility] [address] [place] [address] USAIron [Mass/Vol]31 ug/iSRsg39-603Hex [facility] Physician GroupComment on above:Performed By: #### LILA, [id number], URIC, PTH, FE and TIBC ####[address] [place] [id number] USATotal Iron Binding Ngotphnn561 ug/dLNormal 255-450The [facility] Physician [facility] HospitalComment on above:Performed By: #### LILA, [id number], URIC, PTH, FE and TIBC ####[address] USATransferrin [Mass/Vol]321 mg/rGDatzaa284-985Wgt [facility] Physician [facility] HospitalComment on above:Performed By: #### LILA, [id number], URIC, PTH, FE and TIBC ####[address] USAKetones Test strip Ql (U)Ordered By: Amina Fagan on 91-78-4427Stbhhos Ql (U)Ketones [Presence] in Urine by Test stripNegative [facility]as HospitalLDL Cholesterol Measuredon 80-71-6278REH Cholesterol Wctzvzbn93 mg/dLNormal0-100The [facility] Physician [facility] HospitalComment on above:Result Comment: LDL ATP III CLASSIFICATION LDL less than 100 mg/dL Optimal LDL 100-129 mg/dL Near or above optimal LDL 130-159 mg/dL Borderline high LDL 160-189 mg/dL High LDL greater than 189 mg/dL Very highPerformed By: #### LDLD, MG, URIC, TSH3, [id number], PSAS, LIPID ####[id number] USALeukocyte esterase [Presence] in Urine by Test stripOrdered By: Amina Fagan on 99-04-1492Xyvgnfgdh esterase Test strip Ql (U) Leukocyte esterase [Presence] in Urine by Test stripNegativeTuscarawas HospitalLeukocytes [#/volume] corrected for nucleated erythrocytes in Blood by Automated counOrdered By: Maurice Francis on 69-80-3373VVS corrected for nucl RBC Auto (Bld) [#/Vol]Leukocytes [#/volume] corrected for nucleated erythrocytes in Blood by Automated coun4.1-10.5FWhite Hospital Lipid Panelon 11-59-5466Boznzzjwwnl [Mass/Vol]108 mg/nKYcl646-233Zca [facility] Physician GroupComment on above:Result Comment: Chol less than 200 mg/dl low risk Chol 201-239 mg/dl borderline risk Chol 240 mg/dland greater high risk Performed By: #### LDLD, MG, URIC, TSH3, [id number], PSAS, LIPID ####[address] [place] [address] USACholesterol in HDL [Mass/Vol]21 mg/iPChq66-01Efx [facility] Physician GroupComment on above:Result Comment: HDL CHOL ATP-III CLASSIFICATION Cardiovascular Risk HDL > or equal to 60 mg/dL LOW HDL < 40 mg/dL HIGHPerformed By: #### LDLD, MG, URIC, TSH3, [id number], PSAS, LIPID ####[address] [place] [address] USACholesterol.total/Cholesterol in HDL [Mass ratio]5.1 {ratio}Normal<5.0The [facility] Physician GroupComment on above:Performed By: #### LDLD, MG, URIC, TSH3, [id number], PSAS, LIPID ####[id number] [place] [address] USALDL Cholesterol,Calculated<10Normal 0-100The [facility] Physician GroupComment on above:Result Comment: LDL ATP III CLASSIFICATION LDL less than 100 mg/dL Optimal LDL 100-129 mg/dL Near or above optimal LDL 130-159 mg/dL Borderline high LDL 160-189 mg/dL High LDL greater than 189 mg/dL Very highPerformed By: #### LDLD, MG, URIC, TSH3, [id number], PSAS, LIPID ####[address] [address] [facility] Triglyceride w/Glarty963 mg/dLHigh0-149The [facility] Physician GroupComment on above:Result Comment: TRIG ATP III CLASSIFICATION TRIG less than 150 mg/dL Normal TRIG 150-199 mg/dL Borderline high TRIG 200-500 mg/dL High TRIG greater than 500 mg/dL Very high Standard traceable to the Center for Disease Conrtrol and Prevention (CDC) test method. If the triglyceride result is greater than 400, LDLC and related calculations cannot be calculated and resulted.Performed By: #### LDLD, MG, URIC, TSH3, [id number], PSAS, LIPID ####[facility] [id number] [place] [address] USAVLDL CHOLESTEROLNot performed NormalThe [facility] Physician GroupComment on above:Performed By: #### LDLD, MG, URIC, TSH3, [id number], PSAS, LIPID ####[facility] [address] [place] [address] USALymphocytes Auto (Bld) [#/Vol]Ordered By: Maurice Francis on 91-60-5174Yhexeexrmnw (Bld) [#/Vol]Lymphocytes [#/volume] in Blood by Automated count1.00-4.8T[facility]carawas HospitalLymphocytes/100 WBC Auto (Bld)Ordered By: Maurice Francis on 75-99-9311Kyywvpwnyzh/100 WBC (Bld) Lymphocytes/100 leukocytes in Blood by Automated count.[facility] Auto (RBC) [Entitic mass]Ordered By: Maurice Francis on 10-26-2024 MCH (RBC) [Entitic mass]MCH [Entitic mass] by Automated hjfhcJlm75.5-35.2 [facility]HC Auto (RBC) [Mass/Vol]Ordered By: Maurice Francis on 56-34-2777MOIJ (RBC) [Mass/Vol]MCHC [Mass/volume] by Automated count 32.5-35.6FSt. Charles HospitalV Auto (RBC) [Entitic vol]Ordered By: Maurice Francis on 45-45-6083SXH (RBC) [Entitic vol]MCV [Entitic volume] by Automated klfaaXxk75.5-101T[facility]carawas HospitalMagnesiumon 34-21-7323Vnzcrtgje [Mass/Vol]1.8 mg/dLLow1.9-2.7The [facility] Comment on above:Performed By: #### LDLD, MG, URIC, TSH3, [id number], PSAS, LIPID ####[facility] [place] [address] [facility] Magnesium [Mass/volume] in Serum or PlasmaOrdered By: Teresa Lynch on 10-26-2024 Magnesium [Mass/Vol]Magnesium [Mass/volume] in Serum or PlasmaLow1.9-2.7 [facility] HospitalMicroalbumin [Mass/volume] in UrineOrdered By: Teresa Lynch on 93-29-8727Mcdtewv DL <= 20 mg/L (U) [Mass/Vol]Microalbumin [Mass/volume] in Urine0.0-1.8[facility]awas HospitalMicroalbumin, Urine (Random)on 77-57-3342Xubkwtg DL <= 20 mg/L (U) [Mass/Vol]0.9 mg/dLNormal 0.0-1.8The [facility] Physician GroupComment on above:Result Comment: PERFORMED BY:[address] [place], [place] [phone] MEDICAL DIRECTORBREANNE RUTHERFORD M.D.Performed By: #### URMA ####[facility] [place] [address] [facility] Microcytes LM Ql (Bld)Ordered By: Maurice Francis on 70-38-7545Ylvhjxppbu Ql (Bld) Microcytes [Presence] in Blood by Light microscopyTuscarawas HospitalMonocytes Auto (Bld) [#/Vol]Ordered By: Maurice Reinar on 64-92-3409Gsnmsmmbb (Bld) [#/Vol]Automated blood monocyte count0.0-0.8T[facility]carawas HospitalMonocytes/100 WBC Auto (Bld)Ordered By: Maurice Tito on 10-26-2024 Monocytes/100 WBC (Bld)Automated monocyte %.[facility] Neutrophils Auto (Bld) [#/Vol]Ordered By: Maurice Reinar on 45-52-4834Pbmdfxjbbnx (Bld) [#/Vol]Neutrophils [#/volume] in Blood by Automated count1.8-7.7FWhite HospitalNeutrophils/100 WBC Auto (Bld)Ordered By: Maurice Francis on 96-03-3519Ngikzmocsts/100 WBC (Bld)Automated neutrophil %.T[facility]carawas HospitalNitrite Test strip Ql (U)Ordered By: Amina Fagan on 10-26-2024 Nitrite Ql (U)Nitrite [Presence] in Urine by Test stripNegativeTuscarawas HospitalNo Panel InformationOrdered By: Teresa Lynch on 10-26-2024 Estimated GFR (CKD-EPI)30.940 mL/MinTuscarawas HospitalPharmacy Creatinine Clearance (ChemN/[facility]30.940 mL/Min [facility]carawas HospitalN/[facility] NorthNucleated erythrocytes [Presence] in Blood by Automated countOrdered By: Maurice Francis on 39-06-3324Lhopucqqo RBC Auto Ql (Bld)Nucleated erythrocytes [Presence] in Blood by Automated count0-0.5FWhite HospitalPSA Screen (Yearly Only) on 35-17-2959BIP Screen (Yearly Only)1.160 ng/mLNormal0.000-4.000The [facility] Physician GroupComment on above:Result Comment: Serial tumor marker results determined by assays using different manufacturers or methods may not be comparable. [facility] payroll specialist and method: [employer] DXI, CHEMILUMINESCENT IMMUNOASSAY.PERFORMED BY:[address] [place], [place] [phone] MEDICAL DIRECTORBREANNE RUTHERFORD M.D.Performed By: #### LDLD, MG, URIC, TSH3, [id number], PSAS, LIPID ####[address] [address] [facility] Parathyrin.intact [Mass/volume] in Serum or PlasmaOrdered By: Amina Fagan on 99-99-7566Orgadafvra.intact [Mass/Vol]Parathyrin.intact [Mass/volume] in Serum or Kohysz58-71KhyxkxsxaTuscarawas HospitalParathyroid Hormone Intacton 21-29-4767Fpkcadepfor Hormone Jtnxfi93.9 pg/dNIbolwf64-08Mma [facility] Physician GroupComment on above:Result Comment: PERFORMED BY:[address] [place], [place] [phone] MEDICAL DIRECTORRBEANNE RUTHERFORD M.D.Performed By: #### LILA, [id number], URIC, PTH, FE and TIBC ####[facility] [id number] [place] [address] USAPhosphate [Mass/volume] in Serum or PlasmaOrdered By: Teresa Lynch on 90-78-5322Giyvfhrvh [Mass/Vol]Phosphate [Mass/volume] in Serum or Plasma2.5-4.5 [facility] HospitalPlatelet adequacy [Presence] in Blood by Light microscopyOrdered By: Maurice Tito on 66-64-0164Znlnqcpwp LM Ql (Bld)Platelet adequacy [Presence] in Blood by Light microscopyNormLima City HospitalPlatelet mean volume Auto (Bld) [Entitic vol]Ordered By: Maurice Tito on 06-45-4643Nkcbvlfn mean volume (Bld) [Entitic vol]Platelet mean volume [Entitic volume] in Blood by Automated count6.6-10.1FWhite Hospital Platelet morphology finding [Identifier] in BloodOrdered By: Maurice Tito on 59-67-9746Xgwxlrqf morphology finding Nom (Bld)Platelet morphology finding [Identifier] in BloodTuscarawas HospitalPlatelets Auto (Bld) [#/Vol]Ordered By: Maurice Tito on 99-59-1684Gztyofuuc (Bld) [#/Vol]Platelets [#/volume] in Blood by Automated apyfj424-602LkozpbfpcTuscarawas Hospital Platelets Large [Presence] in Blood by Light microscopyOrdered By: Maurice Tito on 14-59-5479Ykgqswshx Large LM Ql (Bld)Platelets Large [Presence] in Blood by Light microscopyTuscarawas HospitalPolychromasia [Presence] in Blood by Light microscopyOrdered By: Maurice Tito on 20-66-2289Iprmzmrprrmkk LM Ql (Bld)Polychromasia [Presence] in Blood by Light microscopyTuscarawas HospitalPotassium [Moles/volume] in Serum or PlasmaOrdered By: Teresa Lynch on 54-74-2026Zacpatctl [Moles/Vol]Potassium [Moles/volume] in Serum or Plasma 3.5-5.1FWhite HospitalProstate specific Ag [Mass/volume] in Serum or PlasmaOrdered By: Teresa Lynch on 52-79-9436Ateffcwq specific Ag [Mass/Vol]Prostate specific Ag [Mass/volume] in Serum or Plasma0.000-4.000 [facility] HospitalComment on above:Serial tumor marker results determined by assays using different manufacturers or methods may not be comparable.[facility] payroll specialist and method:[employer] DXI, CHEMILUMINESCENT IMMUNOASSAY.Protein Creat Ratio Ur Randomon 10-26-2024 Creatinine, Urine (Random)62.00 mg/dLNormalThe [facility] Physician [facility] HospitalComment on above:Result Comment: No reference range establishedPerformed By: #### NORA COON ####[address] [address] USAProtein (U) [Mass/Vol]12 mg/dLHigh0-9The [facility]ician [facility] Comment on above:Performed By: #### NORA COON ####[address] [address] USAUrine Protein/Creatinine Ldhmn360 mg/g{Cre}Normal0-200The [facility] Physician [facility] County HospitalComment on above:Result Comment: PERFORMED BY:[address] [place], [place] [phone] MEDICAL MARY RUTHERFORD M.D.Performed By: #### NORA COON ####[address] [address] USAProtein Test strip (U) [Mass/Vol]Ordered By: Amina Fagan on 92-07-2435Akrlbmr (U) [Mass/Vol]Protein [Mass/volume] in Urine by Test stripNegativeTuscarawas HospitalProtein [Mass/volume] in Serum or PlasmaOrdered By: Teresa Lynch on 28-47-2181Igoyfjp [Mass/Vol]Protein [Mass/volume] in Serum or Plasma6.4-8.9T[facility]carawas HospitalProtein [Mass/volume] in UrineOrdered By: Amina Fagan on 96-77-2352Mhihvwc (U) [Mass/Vol]Protein [Mass/volume] in UrineHigh0-9[facility] RBC Auto (Bld) [#/Vol]Ordered By: Maurice Francis on 60-39-4495AVL (Bld) [#/Vol] Erythrocytes [#/volume] in Blood by Automated count3.90-5.60T[facility]carawas HospitalRenal Function Panelon 09-92-2531Ukposcwil [Mass/Vol]3.9 mg/dL Normal2.5-4.5The [facility] Physician GroupComment on above:Result Comment: PERFORMED BY:[address] [place], [place] [phone] MEDICAL DIRECTORBREANNE RUTHERFORD M.D.Performed By: #### CMP, RENAL ####[address] [address]NLCXgve and CBCon 46-41-4340Bfrlzguqywgm Ql (Bld)MarkedNormalThe [facility] Physician [facility] HospitalComment on above:Performed By: #### SCAN CBC ####[address] [address] USABasophils (Bld) [#/Vol]0.1 10*3/uLNormal0.0-0.2The [facility] Physician [facility] HospitalComment on above: Performed By: #### SCAN CBC ####[address] [address] USABasophils/100 WBC (Bld)1.1 %Normal.The [facility] Physician GroupComment on above:Performed By: #### SCAN CBC ####[address] [address] USAEosinophils (Bld) [#/Vol]0.3 10*3/uLNormal0.0-0.45The [facility] Physician [facility] HospitalComment on above: Performed By: #### SCAN CBC ####[address] [address] USAEosinophils/100 WBC (Bld)3.5 %Normal.The [facility] Physician GroupComment on above:Performed By: #### SCAN CBC ####[address] [address] USAErythrocyte distribution width (RBC) [Ratio]21.5 %High12.0-14.8The [facility] Physician Group Comment on above:Performed By: #### SCAN CBC ####[address] [address] USAHematocrit (Bld) [Volume fraction]42.7 %Dlkcfh91.8-50.0The [facility] Physician GroupComment on above:Performed By: #### SCAN CBC ####[address] [address] USAHemoglobin (Bld) [Mass/Vol]14.3 g/cILgcuuu14.0-17.0The [facility] Physician GroupComment on above:Performed By: #### SCAN CBC ####[address] [address] USALarge PlateletsSlightNormalThe [facility] Physician GroupComment on above:Result Comment: PERFORMED BY:[address] [place], [place] [phone] MEDICAL DIRECTORBREANNE RUTHERFORD M.D.Performed By: #### SCAN CBC ####[address] [address] USALymphocytes (Bld) [#/Vol]1.6 10*3/uLNormal1.00-4.8The [facility] Physician GroupComment on above: Performed By: #### SCAN CBC ####[address] [address] USALymphocytes/100 WBC (Bld)17.7 %Normal.The [facility] Physician GroupComment on above:Performed By: #### SCAN CBC ####[address] [address] USAMCH (RBC) [Entitic mass]25.9 pgLow27.5-35.2The [facility] Physician GroupComment on above:Performed By: #### SCAN CBC ####[id number] USAMCV (RBC) [Entitic vol]77.1 fLLow83.5-101The [facility] Physician GroupComment on above:Performed By: #### SCAN CBC ####[place] [address] USAMean Corpuscular HGB Conc33.6 g/dL Ywkxcs56.5-35.6The [facility] Physician GroupComment on above:Performed By: #### SCAN CBC ####[place] [address] USAMicrocytosisSlightNormalThe [facility] Physician GroupComment on above: Performed By: #### SCAN CBC ####[place] [address] USAMonocytes (Bld) [#/Vol]0.8 10*3/uLNormal0.0-0.8The [facility] Physician GroupComment on above:Performed By: #### SCAN CBC ####[place] [address] [place] Monocytes/100 WBC (Bld)9.2 %Normal.The [facility] Physician GroupComment on above:Performed By: #### SCAN CBC ####[place] [address] USANeutrophils (Bld) [#/Vol]6.0 10*3/uLNormal1.8-7.7The [facility] Physician GroupComment on above:Performed By: #### SCAN CBC ####[place] [address] [place] Neutrophils/100 WBC (Bld)68.5 %Normal.The [facility] Physician GroupComment on above:Performed By: #### SCAN CBC ####[place] [address] USANRBC%0.1 /100{WBC}Normal0-0.5The [facility] Physician GroupComment on above:Performed By: #### SCAN CBC ####[place] [address] USAPlatelet EstimateNormalNormal NormalThe [facility] Physician GroupComment on above:Performed By: #### SCAN CBC ####[place] [address] [place] Platelet mean volume (Bld) [Entitic vol]9.5 fLNormal6.6-10.1The [facility] Physician GroupComment on above:Performed By: #### SCAN CBC ####[address] USAPlatelets (Bld) [#/Vol]167 10*3/cYIkduva918-035Whn [facility] Physician GroupComment on above: Performed By: #### SCAN CBC ####[place] [address] USAPolychromasiaSlightNormalThe [facility] Physician GroupComment on above:Performed By: #### SCAN CBC ####[place] [address] USARBC (Bld) [#/Vol]5.54 10*6/uLNormal 3.90-5.60The [facility] Physician GroupComment on above:Performed By: #### SCAN CBC ####[address] USAWBC (Bld) [#/Vol]8.8 10*3/uLNormal4.1-10.5The [facility] Physician GroupComment on above:Performed By: #### SCAN CBC ####[place] [address] USASerum or plasma albumin/globulin mass ratioOrdered By: Teresa Lynch on 82-44-8994Qavqqwj/Globulin [Mass ratio]Serum or plasma albumin/globulin mass ratioSelect Medical Cleveland Clinic Rehabilitation Hospital, Beachwooderum or plasma anion gap determinationOrdered By: Teresa Lynch on 39-92-1391Alyxx gap [Moles/Vol] Serum or plasma anion gap determinationHigh6.0-15.0[facility], Beachwooderum or plasma iron binding capacity measurement (mass/volume)Ordered By: Amina Fagan on 85-11-5836Heun binding capacity [Mass/Vol]Iron binding capacity [Mass/volume] in Serum or Iunqxb876-604OhfbhyhdnSelect Medical Cleveland Clinic Rehabilitation Hospital, Beachwooderum or plasma iron saturation measurement (mass fraction)Ordered By: Amina Fagan on 58-50-7452Qzse saturation [Mass fraction]Iron saturation [Mass Fraction] in Serum or FlbuscTrx23-23CylmpejosSelect Medical Cleveland Clinic Rehabilitation Hospital, Beachwooderum or plasma total cholesterol/high density lipoprotein (HDL) cholesterol mass ratOrdered By: Teresa Lynch on 66-72-0195Npcmnbdxtup.total/Cholesterol in HDL [Mass ratio]Serum or plasma total cholesterol/high density lipoprotein (HDL) cholesterol mass rat<5.0 [facility], Beachwoododium [Moles/volume] in Serum or PlasmaOrdered By: Teresa Lynch on 85-15-2102Tksali [Moles/Vol]Sodium [Moles/volume] in Serum or Datvbn357-566OfxzhreqzSelect Medical Cleveland Clinic Rehabilitation Hospital, Beachwoodpecific gravity Test strip (U) [Rel density]Ordered By: Amina Fagan on 01-11-3187Guhoqpre gravity (U) [Rel density]Specific gravity of Urine by Test strip1.001-1.030T[facility]carawas HospitalThyroid Stimulating Hormoneon 15-47-8763SAH Qn3.68 m[IU]/LNormal 0.45-5.33The [facility] Physician GroupComment on above:Performed By: #### LDLD, MG, URIC, TSH3, DIYA63UR, PSAS, LIPID ####[facility] [address] [place] [address] USAThyrotropin [Units/volume] in Serum or Plasma Ordered By: Teresa Lynch on 08-95-7987WHL QnThyrotropin [Units/volume] in Serum or Plasma0.45-5.33[facility]awas HospitalTransferrin [Mass/volume] in Serum or PlasmaOrdered By: Amina Fagan on 49-94-6238Mbysfgfcfxt [Mass/Vol] Transferrin [Mass/volume] in Serum or Vnulnx865-298GiwbrlxrjTuscarawas HospitalTriglyceride [Mass/volume] in Serum or PlasmaOrdered By: Teresa Lynch on 21-28-2112Amlcbqnnyqib [Mass/Vol]Triglyceride [Mass/volume] in Serum or Plasma High0-149[facility]aw[facility] HospitalComment on above:If the triglyceride result is greater than 400, LDLC and related calculations cannot be calculated a nd resulted.TRIG ATP III CLASSIFICATIONTRIG less than 150 mg/dL NormalTRIG 150- 199 mg/dL BorderlinehighTRIG 200-500 mg/dL High TRIG greater than 500 mg/dL Very highStandard traceable to the Center for Disease Conrtrol and Prevention (CDC) test method.Urate [Mass/volume] in Serum or PlasmaOrdered By: Amina Fagan on 64-60-3153Ucksa [Mass/Vol]Urate [Mass/volume] in Serum or PlasmaHigh4.4-7.6 [facility] HospitalUrea nitrogen [Mass/volume] in Serum or Plasma Ordered By: Teresa Lynch on 65-07-7535Uubk nitrogen [Mass/Vol]Urea nitrogen [Mass/volume] in Serum or PlasmaHigh7-25T[facility]awas HospitalUric Acidon 70-79-2501Ibovk [Mass/Vol]10.5 mg/dLHigh4.4-7.6The [facility] Physician GroupComment on above:Performed By: #### LILA, IPJR98TPM, URIC, PTH, FE and TIBC ####[address] [address] USAUrate [Mass/Vol]10.5 mg/dLHigh4.4-7.6The [facility] Physician GroupComment on above: Performed By: #### LDLD, MG, URIC, TSH3, ZQIP70YQ, PSAS, LIPID ####[address] [address] USAUrinalysison 62-97-6860Wygirszwqn (U)ClearNormalClearThe [facility] Physician GroupComment on above:Order Comment: Name Collection Type:: Clean-Voided MidstreamPerformed By: #### PROCRERAT, UA ####[place] [address] [address] USABilirubin,UrineNegativeNormalNegativeThe [facility] Group Comment on above:Order Comment: Name Collection Type:: Clean-Voided Midstream Performed By: #### PROCRERAT, UA ####[address] [address] USAColor (U)Light-YellowNormalYellowThe [facility] Physician GroupComment on above:Order Comment: Name Collection Type:: Clean- Voided MidstreamPerformed By: #### PROCRERAT, UA ####[address] [address] USAGlucose Ql (U)>=HighNoNovant Health Pender Medical Center Physician GroupComment on above:Order Comment: Name Collection Type:: Clean-Voided MidstreamPerformed By: #### PROCRERAT, UA ####[address] [address] USAKetones Ql (U)NegativeNormal NegativeThe [facility] Physician GroupComment on above:Order Comment: Name Collection Type:: Clean-Voided MidstreamPerformed By: #### PROCRERAT, UA ####[address] [address] [place] Leukocyte esterase Test strip Ql (U)NegativeNormalNegativeThe [facility] Physician GroupComment on above:Order Comment: Name Collection Type:: Clean- Voided MidstreamPerformed By: #### PROCRERAT, UA ####[address] [address] USANitrite,UrineNegativeNormalNegativeThe [facility] Physician GroupComment on above:Order Comment: Name Collection Type:: Clean-Voided MidstreamPerformed By: #### PROCRERAT, UA ####[address] [address] USAOccult Blood,UrineNegative NormalNegativeThe [facility] Physician GroupComment on above:Order Comment: Name Collection Type:: Clean-Voided MidstreamResult Comment: PERFORMED BY:[address] [place], [place] [phone] MEDICAL MARY RUTHERFORD M.D.Performed By: #### PROCRERAT, UA ####[address] [address] USApH (U) 5.5 [pH]Normal5.0-9.0The [facility] Physician GroupComment on above:Order Comment: Name Collection Type:: Clean-Voided MidstreamPerformed By: #### PROCRERAT, UA ####[address] [address] USAProtein,UrineNegativeNormalNegativeThe [facility] Physician GroupComment on above:Order Comment: Name Collection Type:: Clean-Voided MidstreamPerformed By: #### PROCRERAT, UA ####[address] [address] USASpecificy [place],Urine1.643Vrfozd3.001-1.030The [facility] Physician GroupComment on above:Order Comment: Name Collection Type:: Clean-Voided MidstreamPerformed By: #### PROCRERAT, UA ####[address] [address] USAUrobilinogen,UrineNormalNormal NormalThe [facility] Physician GroupComment on above:Order Comment: Name Collection Type:: Clean-Voided MidstreamPerformed By: #### PROCRERAT, UA ####[address] [address] USAUrine protein/creatinine ratioOrdered By: Amina Fagan on 78-87-7041Nhelsci/Creatinine (U) [Ratio]Urine protein/creatinine ratio0-200[facility] Urobilinogen Test strip (U) [Mass/Vol]Ordered By: Amina Fagan on 10-26-2024 Urobilinogen (U) [Mass/Vol]Urobilinogen [Mass/volume] in Urine by Test strip [facility] CenterVit. B12/Folate Profileon 10-26-2024 Cobalamin (Vitamin B12) [Mass/Vol]195 pg/kRMnkpot337-564Gqs [facility] Physician GroupComment on above:Performed By: #### LILA, [id number], URIC, PTH, FE and TIBC ####[address] [address] USAFolate 10.1 ng/mLNormal>5.9The [facility] Physician GroupComment on above:Result Comment: Folate reference range: >5.9 ng/ml The WHO technical consultation on folate and vitamin b12 deficiencies has determined that folate concentrations less than 4 ng/ml are considered deficient.PERFORMED BY:[address] [place], [place] [phone] MEDICAL DIRECTORBREANNE RUTHERFORD M.D.Performed By: #### LILA, [id number], URIC, PTH, FE and TIBC ####[address] [address] [facility] FACILITYVitamin B12 ser/plasOrdered By: Amina Fagan on 93-84-1368Dkkkocooq (Vitamin B12) [Mass/Vol]Vitamin B12 ser/iivt655-772YwyvratokTuscarawas Hospital Vitamin D 25 Hydroxy Totalon 70-83-9345Ymkhvvj D 25 Hydroxy Total17.0 ng/mLLow 30-100The [facility] Physician GroupComment on above:Result Comment: VITAMIN D STATUS 25(OH)VITAMIN D RANGE (ng/mL) Deficient <20 Insufficient 20 to <30 Sufficient 30 to 100 Reference: Ibrahima Reyes, Kasey LONG, et al. Evaluation,treatment, and prevention of vitamin D deficiency; an Endocrine Society clinical practice guideline.JCEM. 2010; 96(7):1911-30.PERFORMED BY:[address] [address] LINMaryCHALIN[place], [place] [phone] MEDICAL MARY RUTHERFORD M.D.Performed By: #### LDLD, MG, URIC, TSH3, TELQ94VN, PSAS, LIPID ####[address] [address] [facility] FACILITYVitamin D+Metabolites [Mass/volume] in Serum or PlasmaOrdered By: Teresa Lynch on 93-91-0128Thletod D+Metabolites [Mass/Vol]Vitamin D+Metabolites [Mass/volume] in Serum or FgyundBsg79-581 [facility] HospitalComment on above:VITAMIN D STATUS 25(OH)VITAMIN D RANGE (ng/mL) Deficient <20 Insufficient 20 to <44Avbjsmopkn76 to 100Reference: Ibrahima Reyes, Kasey LONG, et al. Evaluation,treatment, and prevention of vitamin D deficiency; an Endocrine Society clinical practice guideline. JCEM. 2010; 96(7):1911-30.WBC Auto (Bld) [#/Vol]Ordered By: Maurice Francis on 37-80-7667KCJ (Bld) [#/Vol]Leukocytes [#/volume] in Blood by Automated count4.1-10.5FWhite Hospital pH Test strip (U)Ordered By: Amina Fagan on 00-19-9784dB (U)pH of Urine by Test strip5.0-9.0T[facility]carawas HospitalAnisocytosis LM Ql (Bld)Ordered By: Abdullahi Canchola on 12-57-9771Eqivklafatrk Ql (Bld)Anisocytosis [Presence] in Blood by Light microscopyTuscarawas HospitalBasic Metabolic Panel on 83-34-6916Moeqp gap [Moles/Vol]15.7 mmol/LHigh6.0-15.0The [facility] Physician GroupComment on above:Performed By: #### BMP, CK, HS TROP, FE and TIBC, LILA, MG, SCAN CBC ####[place] [id number] USACalcium [Mass/Vol]8.9 mg/dLNormal8.6-10.3The [facility] Physician Group Comment on above:Performed By: #### BMP, CK, HS TROP, FE and TIBC, LILA, MG, SCAN CBC ####[address] [address] [place] Chloride [Moles/Vol]99 mmol/OOqvagn74-043Vfa [facility] Physician GroupComment on above:Performed By: #### BMP, CK, HS TROP, FE and TIBC, LILA, MG, SCAN CBC ####[address] [address] USACO2 [Moles/Vol]25.5 mmol/XUaaeui83.0-31.0The [facility] Physician GroupComment on above:Performed By: #### BMP, CK, HS TROP, FE and TIBC, LILA, MG, SCAN CBC ####[place] [id number] [place] Creatinine [Mass/Vol]2.43 mg/dLHigh0.70-1.30The [facility] Physician GroupComment on above:Performed By: #### BMP, CK, HS TROP, FE and TIBC, LILA, MG, SCAN CBC ####[place] [id number] [address] Creatinine Clr Calc Brxlsisd86.93NoNovant Health Pender Medical Center Physician GroupComment on above:Performed By: #### BMP, CK, HS TROP, FE and TIBC, LILA, MG, SCAN CBC ####[place] [address] [address] Estimated GFR29.874 mL/MinNoNovant Health Pender [facility] Center Physician GroupComment on above: Performed By: #### BMP, CK, HS TROP, FE and TIBC, LILA, MG, SCAN CBC ####[place] [address] USAGlucose [Mass/Vol]221 mg/kUFibt49-420Xbw [facility] Physician GroupComment on above: Result Comment: Random Glucose Reference Range is dependent on time and content of last meal. Glucose of more than 200 mg/dL in a nonstressed, ambulatory subject supports the diagnosis of Diabetes Mellitus. ADA recommended reference rangePerformed By: #### BMP, CK, HS TROP, FE and TIBC, LILA, MG, SCAN CBC ####[address] Potassium [Moles/Vol]4.2 mmol/LNormal3.5-5.1The [facility] Physician GroupComment on above:Performed By: #### BMP, CK, HS TROP, FE and TIBC, LILA, MG, SCAN CBC ####[place] [address] USASodium [Moles/Vol]136 mmol/VCgwolg242-891Plk [facility] Physician GroupComment on above: Performed By: #### BMP, CK, HS TROP, FE and TIBC, LILA, MG, SCAN CBC ####[place] [address] USAUrea nitrogen [Mass/Vol]39 mg/dLHigh7-25The [facility] Physician GroupComment on above:Performed By: #### BMP, CK, HS TROP, FE and TIBC, LILA, MG, SCAN CBC ####[facility] [address] [place] [id number] [facility] Basophils Auto (Bld) [#/Vol]Ordered By: Abdullahi Canchola on 33-93-2674Ggcjluvpi (Bld) [#/Vol]Automated basophil count0.0-0.2FWhite Hospital Basophils/100 WBC Auto (Bld)Ordered By: Abdullahi Canchola on 10-11-2024 Basophils/100 WBC (Bld)Automated basophil %.[facility] Calcium [Mass/volume] in Serum or PlasmaOrdered By: Abdullahi Canchola on 10-11-2024 Calcium [Mass/Vol]Calcium [Mass/volume] in Serum or Plasma8.6-10.3FWhite HospitalCarbon dioxide, total [Moles/volume] in Serum or Plasma Ordered By: Abdullahi Canchola on 24-40-2585ER9 [Moles/Vol]Carbon dioxide, total [Moles/volume] in Serum or Zvcqnu74.0-31.0[facility] Chloride [Moles/volume] in Serum or PlasmaOrdered By: Abdullahi Canchola on 87-89-0713Bgzbburt [Moles/Vol]Chloride [Moles/volume] in Serum or Pdjolr53-997 [facility] HospitalCreatine Kinaseon 95-14-2353NZ [Catalytic activity/Vol]91 U/JSlgbkf13-937Dsd [facility] Physician GroupComment on above: Performed By: #### BMP, CK, HS TROP, FE and TIBC, LILA, MG, SCAN CBC ####[facility] [address] [place] [address] [facility] Creatine kinase [Enzymatic activity/volume] in Serum or PlasmaOrdered By: Abdullahi Canchola on 05-94-5648HV [Catalytic activity/Vol]Creatine kinase [Enzymatic activity/volume] in Serum or Mvqmwy45-069BgkybuduzTuscarawas HospitalCreatinine [Mass/volume] in Serum or PlasmaOrdered By: Abdullahi Canchola on 85-76-7913Nztdvonhcd [Mass/Vol]Creatinine [Mass/volume] in Serum or PlasmaHigh 0.70-1.30[facility] HospitalECH echo transthoracicon 93-44-0675ETD echo transthoracicNormalThe [facility] Physician GroupEosinophils Auto (Bld) [#/Vol]Ordered By: Abdullahi Canchola on 31-89-5542Tfytwvahohc (Bld) [#/Vol] Automated eosinophil count0.0-0.45[facility] Eosinophils/100 WBC Auto (Bld)Ordered By: Abdullahi Canchola on 10-11-2024 Eosinophils/100 WBC (Bld)Automated eosinophil %.[facility] HospitalErythrocyte distribution width Auto (RBC) [Ratio]Ordered By: Abdullahi Canchola on 32-78-0775Ehmtsdxlckb distribution width (RBC) [Ratio]Erythrocyte distribution width [Ratio] by Automated rbwdjNkzn42.0-14.8[facility] HospitalErythrocyte morphology finding [Identifier] in BloodOrdered By: Abdullahi Canchola on 52-19-3421YZO morphology finding Nom (Bld)RBC morphology [facility] HospitalFerritinon 59-60-7871Qlqqrxrk [Mass/Vol]8.2 ng/mLLow23.9-336.2The [facility] Physician GroupComment on above:Result Comment: PERFORMED BY:[address] [place], [place] [phone] MEDICAL DIRECTORMIKE CABAN M.D. Performed By: #### BMP, CK, HS TROP, FE and TIBC, LILA, MG, SCAN CBC ####[facility] [address] [place] [address] [facility] Ferritin [Mass/volume] in Serum or PlasmaOrdered By: Abdullahi Canchola on 44-26-9369Vpfzxsrb [Mass/Vol]Ferritin [Mass/volume] in Serum or PlasmaLow 23.9-336.2FWhite HospitalGlucose Glucometer (BldC) [Mass/Vol] Ordered By: Abdullahi Canchola on 64-79-8327Wioqwcp [Mass/Vol]Capillary blood glucose measurement by glucometer (mass/volume)[facility] Comment on above:Random Glucose Reference Range is dependent on time and content of last meal. Glucose of more than 200 mg/dL in a nonstressed, ambulatory subject supports the diagnosis of Diabetes Mellitus.Glucose Poct Glucometerson 79-91-0359Gbwmdce8Oyh5: Cleaned MeterHCA Florida [facility]ied[facility] Physician GroupComment on above:Result Comment: PERFORMED BY:[place] [address] [address] [place], [place] [phone] MEDICAL DIRECTORMIKE CABAN M.D.Performed By: #### GLULS ####Point of Care testing,Glucose [Mass/Vol]194 mg/dLHCA Florida Oviedo Medical Center Physician GroupComment on above:Result Comment: Random Glucose Reference Range is dependent on time and content of last meal. Glucose of more than 200 mg/dL in a nonstressed, ambulatory subject supports the diagnosis of Diabetes Mellitus.Performed By: #### GLULS ####Point of Care testing,Sdradsf2Uxu7: Neelima MeterHCA Florida Oviedo [facility] Center Physician Comment on above:Result Comment: PERFORMED BY:[place] [address] [address] [place], [place] [phone] MEDICAL DIRECTORMIKE CABAN M.D.Performed By: #### GLULS ####Point of Care testing,Glucose [Mass/Vol]229 mg/dLHCA Florida Oviedo Medical Center Physician GroupComment on above:Result Comment: Random Glucose Reference Range is dependent on time and content of last meal. Glucose of more than 200 mg/dL in a nonstressed, ambulatory subject supports the diagnosis of Diabetes Mellitus.Performed By: #### GLULS ####Point of Care testing,Glucose [Mass/volume] in Serum or Plasma Ordered By: Abdullahi Canchola on 13-45-0115Lsymffy [Mass/Vol]Glucose [Mass/volume] in Serum or BxsxljJzak82-544GvuurbdpaTuscarawas HospitalComment on above: ADA recommended reference rangeRandom Glucose Reference Range is dependent on time and content of last meal. Glucose of more than 200 mg/dL in a nonstressed, ambulatory subject supports the diagnosisof Diabetes Mellitus.Hematocrit Auto (Bld) [Volume fraction]Ordered By: Abdullahi Canchola on 33-25-8694Jmpfndzxzc (Bld) [Volume fraction]Hematocrit [Volume Fraction] of Blood by Automated count 38.8-50.0[facility] HospitalHemoglobin [Mass/volume] in Blood Ordered By: Abdullahi Canchola on 34-13-3063Qxdydmgmdz (Bld) [Mass/Vol]Hemoglobin [Mass/volume] in Blood13.0-17.0[facility] HospitalIron [Mass/volume] in Serum or PlasmaOrdered By: Abdullahi Canchola on 28-53-6223Kqeu [Mass/Vol]Iron [Mass/volume] in Serum or YsnclzUhf39-615ShpncahakTuscarawas HospitalIron and TIBC Profileon 10-11-2024% Iron Saturation9.1 %Lxf89-64 The [facility] Physician GroupComment on above:Performed By: #### BMP, CK, HS TROP, FE and TIBC, LILA, MG, SCAN CBC ####[place] [address] [place] [address] USAIron [Mass/Vol]37 ug/pPJjt23-810Cce [facility] Physician GroupComment on above:Performed By: #### BMP, CK, HS TROP, FE and TIBC, LILA, MG, SCAN CBC ####[place] [address] USATotal Iron Binding Mnanvngs939 ug/rYMxaoty907-270Zjs [facility] HospitalComment on above:Performed By: #### BMP, CK, HS TROP, FE and TIBC, LILA, MG, SCAN CBC ####[place] [address] USATransferrin [Mass/Vol]291 mg/fDEvaxgr634-211Vpy [facility] Physician GroupComment on above:Performed By: #### BMP, CK, HS TROP, FE and TIBC, LILA, MG, SCAN CBC ####[place] [address] USALeukocytes [#/volume] corrected for nucleated erythrocytes in Blood by Automated counOrdered By: Abdullahi Canchola on 10-11-2024 WBC corrected for nucl RBC Auto (Bld) [#/Vol]Leukocytes [#/volume] corrected for nucleated erythrocytes in Blood by Automated coun4.1-10.5FWhite HospitalLymphocytes Auto (Bld) [#/Vol]Ordered By: Abdullahi Canchola on 49-91-5954Rirkeqgrwxc (Bld) [#/Vol]Lymphocytes [#/volume] in Blood by Automated count1.00-4.8[facility] HospitalLymphocytes/100 WBC Auto (Bld) Ordered By: Abdullahi Canchola on 22-37-9278Itnlnnedkmw/100 WBC (Bld)Lymphocytes/100 leukocytes in Blood by Automated count.[facility] HospitalMCH Auto (RBC) [Entitic mass]Ordered By: Abdullahi Canchola on 47-86-1691HZA (RBC) [Entitic mass]MCH [Entitic mass] by Automated agntcIpj25.5-35.2FWhite HospitalMCHC Auto (RBC) [Mass/Vol]Ordered By: Abdullahi Canchola on 37-81-6961TEWA (RBC) [Mass/Vol]MCHC [Mass/volume] by Automated count32.5-35.6 [facility] HospitalMCV Auto (RBC) [Entitic vol]Ordered By: Abdullahi Canchola on 27-94-6127VIW (RBC) [Entitic vol]MCV [Entitic volume] by Automated bvmdaZrb39.5-101[facility] HospitalMagnesiumon 29-19-8503Jeidedrjx [Mass/Vol]1.8 mg/dLLow1.9-2.7The [facility] Physician GroupComment on above: Performed By: #### BMP, CK, HS TROP, FE and TIBC, LILA, MG, SCAN CBC ####[facility] [address] [place] [id number] [facility] Magnesium [Mass/volume] in Serum or PlasmaOrdered By: Abdullahi Canchola on 62-53-6256Mxuwzzvii [Mass/Vol]Magnesium [Mass/volume] in Serum or PlasmaLow 1.9-2.7FWhite HospitalMicrocytes LM Ql (Bld)Ordered By: Abdullahi Canchola on 01-54-6595Nlgkjtsmey Ql (Bld)Microcytes [Presence] in Blood by Light microscopyTuscarawas HospitalMonocytes Auto (Bld) [#/Vol] Ordered By: Abdullahi Canchola on 85-66-0043Yqottaanr (Bld) [#/Vol]Automated blood monocyte countHigh0.0-0.8[facility] HospitalMonocytes/100 WBC Auto (Bld)Ordered By: Abdullahi Canchola on 40-47-8733Zxpjnwfsk/100 WBC (Bld)Automated monocyte %.[facility] HospitalNeutrophils Auto (Bld) [#/Vol] Ordered By: Abdullahi Canchola on 68-69-9723Futhbxnysqs (Bld) [#/Vol]Neutrophils [#/volume] in Blood by Automated count1.8-7.7FWhite Hospital Neutrophils/100 WBC Auto (Bld)Ordered By: Abdullahi Canchola on 10-11-2024 Neutrophils/100 WBC (Bld)Automated neutrophil %.[facility] HospitalNo Panel InformationOrdered By: Abdullahi Canchola on 78-81-1852Fivltoa Glucose CommentGlu2: cleaned [facility] HospitalGlu2: cleaned [facility] HospitalEstimated GFR (CKD-EPI)29.874 mL/Min [facility] HospitalPharmacy Creatinine Clearance (Chem35.93 [facility]29.874 mL/MinTuscarawas Hospital 35.93[facility] HospitalNucleated erythrocytes [Presence] in Blood by Automated countOrdered By: Abdullahi Canchola on 26-25-6742Xwpqoeaht RBC Auto Ql (Bld)Nucleated erythrocytes [Presence] in Blood by Automated count0-0.5 [facility] HospitalOvalocytes [Presence] in Blood by Light microscopyOrdered By: Abdullahi Canchola on 31-89-7552Dzisgafgms LM Ql (Bld) Ovalocyte detectionTuscarawas HospitalPlatelet adequacy [Presence] in Blood by Light microscopyOrdered By: Abdullahi Canchola on 02-73-0142Ggieaefyb LM Ql (Bld)Platelet adequacy [Presence] in Blood by Light microscopyNormal [facility] HospitalPlatelet mean volume Auto (Bld) [Entitic vol] Ordered By: Abdullahi Canchola on 33-05-0179Tyvbmpjf mean volume (Bld) [Entitic vol] Platelet mean volume [Entitic volume] in Blood by Automated count6.6-10.1 [facility] HospitalPlatelet morphology finding [Identifier] in BloodOrdered By: Abdullahi Canchola on 83-04-8412Iczasclx morphology finding Nom (Bld)Platelet morphology finding [Identifier] in BloodTuscarawas HospitalPlatelets Auto (Bld) [#/Vol]Ordered By: Abdullahi Canchola on 10-11-2024 Platelets (Bld) [#/Vol]Platelets [#/volume] in Blood by Automated -968 [facility] HospitalPlatelets Large [Presence] in Blood by Light microscopyOrdered By: Abdullahi Canchola on 60-56-9046Hebzyajcy Large LM Ql (Bld) Platelets Large [Presence] in Blood by Light microscopyTuscarawas HospitalPoikilocytosis [Presence] in Blood by Light microscopyOrdered By: Abdullahi Canchola on 94-26-4441Mzxxyrcyvtbkjc LM Ql (Bld)Poikilocytosis [Presence] in Blood by Light microscopyTuscarawas HospitalPolychromasia [Presence] in Blood by Light microscopyOrdered By: Abdullahi Canchola on 10-11-2024 Polychromasia LM Ql (Bld)Polychromasia [Presence] in Blood by Light microscopy [facility] HospitalPotassium [Moles/volume] in Serum or Plasma Ordered By: Abdullahi Canchola on 77-43-9125Tzlummbaw [Moles/Vol]Potassium [Moles/volume] in Serum or Plasma3.5-5.1FWhite HospitalRBC Auto (Bld) [#/Vol]Ordered By: Abdullahi Canchola on 93-95-0047DTL (Bld) [#/Vol] Erythrocytes [#/volume] in Blood by Automated count3.90-5.60[facility], Beachwoodcan and CBCon 99-03-0664Ovrrpumvrhcz Ql (Bld)MarkedNoNovant Health [facility]ender [facility] Center Physician GroupComment on above:Performed By: #### BMP, CK, HS TROP, FE and TIBC, LILA, MG, SCAN CBC ####[facility] [address] [place] [address] USABasophils (Bld) [#/Vol]0.1 10*3/uLNormal0.0-0.2The [facility] Physician GroupComment on above:Performed By: #### BMP, CK, HS TROP, FE and TIBC, LILA, MG, SCAN CBC ####[place] [address] USABasophils/100 WBC (Bld)1.3 %Normal.The [facility] Physician GroupComment on above:Performed By: #### BMP, CK, HS TROP, FE and TIBC, LILA, MG, SCAN CBC ####[place] [address] USAEosinophils (Bld) [#/Vol]0.3 10*3/uLNormal0.0-0.45 The [facility] Physician GroupComment on above:Performed By: #### BMP, CK, HS TROP, FE and TIBC, LILA, MG, SCAN CBC ####[place] [address] USAEosinophils/100 WBC (Bld)4.0 %Normal.The [facility] Physician GroupComment on above:Performed By: #### BMP, CK, HS TROP, FE and TIBC, LILA, MG, SCAN CBC ####[place] [address] USAErythrocyte distribution width (RBC) [Ratio]23.3 % High12.0-14.8The [facility] Physician GroupComment on above:Performed By: #### BMP, CK, HS TROP, FE and TIBC, LILA, MG, SCAN CBC ####[place] [address] USAHematocrit (Bld) [Volume fraction]38.9 %Zewmdw75.8-50.0The [facility] Physician GroupComment on above:Performed By: #### BMP, CK, HS TROP, FE and TIBC, LILA, MG, SCAN CBC ####[place] [address] USAHemoglobin (Bld) [Mass/Vol]13.1 g/dL Oniooy77.0-17.0The [facility] Physician GroupComment on above:Performed By: #### BMP, CK, HS TROP, FE and TIBC, LILA, MG, SCAN CBC ####[address] [address] USALarge PlateletsSlightNormalThe [facility] Physician GroupComment on above:Result Comment: PERFORMED BY:[address] [place], [place] [phone] MEDICAL DIRECTORMIKE CABAN M.D.Performed By: #### BMP, CK, HS TROP, FE and TIBC, LILA, MG, SCAN CBC ####[address] [address] USALymphocytes (Bld) [#/Vol]2.0 10*3/uLNormal1.00-4.8 The [facility] Physician GroupComment on above:Performed By: #### BMP, CK, HS TROP, FE and TIBC, LILA, MG, SCAN CBC ####[place] [id number] USALymphocytes/100 WBC (Bld)25.5 %Normal.The [facility] Physician GroupComment on above:Performed By: #### BMP, CK, HS TROP, FE and TIBC, LILA, MG, SCAN CBC ####[address] [address] [facility] (RBC) [Entitic mass]25.7 pgLow27.5-35.2The [facility] Physician GroupComment on above:Performed By: #### BMP, CK, HS TROP, FE and TIBC, LILA, MG, SCAN CBC ####[address] [address] [facility] (RBC) [Entitic vol]76.5 fLLow83.5-101The [facility] Physician GroupComment on above:Performed By: #### BMP, CK, HS TROP, FE and TIBC, LILA, MG, SCAN CBC ####[address] [address] USAMean Corpuscular HGB Conc33.6 g/lBQnhqoa47.5-35.6The [facility] Physician GroupComment on above:Performed By: #### BMP, CK, HS TROP, FE and TIBC, LILA, MG, SCAN CBC ####[place] [address] USAMicrocytosisModerateNormalThe [facility] Physician GroupComment on above:Performed By: #### BMP, CK, HS TROP, FE and TIBC, LILA, MG, SCAN CBC ####[place] [address] USAMonocytes (Bld) [#/Vol]0.9 10*3/uLHigh0.0-0.8The [facility] Physician [facility] Comment on above:Performed By: #### BMP, CK, HS TROP, FE and TIBC, LILA, MG, SCAN CBC ####[place] [address] [place] Monocytes/100 WBC (Bld)10.9 %Normal.The [facility] Physician GroupComment on above:Performed By: #### BMP, CK, HS TROP, FE and TIBC, LILA, MG, SCAN CBC ####[place] [address] [place] Neutrophils (Bld) [#/Vol]4.6 10*3/uLNormal1.8-7.7The [facility] Physician [facility] Comment on above:Performed By: #### BMP, CK, HS TROP, FE and TIBC, LILA, MG, SCAN CBC ####[place] [address] [place] Neutrophils/100 WBC (Bld)58.3 %Normal.The [facility] Physician GroupComment on above:Performed By: #### BMP, CK, HS TROP, FE and TIBC, LILA, MG, SCAN CBC ####[place] [address] USANRBC% 0.1 /100{WBC}Normal0-0.5The [facility] Physician GroupComment on above:Performed By: #### BMP, CK, HS TROP, FE and TIBC, LILA, MG, SCAN CBC ####[place] [id number] USAOvalocytesSFormerly [facility] Physician GroupComment on above:Performed By: #### BMP, CK, HS TROP, FE and TIBC, LILA, MG, SCAN CBC ####[place] [address] USAPlatelet EstimateNormalNormPalmetto General Hospital Physician GroupComment on above:Performed By: #### BMP, CK, HS TROP, FE and TIBC, LILA, MG, SCAN CBC ####[place] [address] USAPlatelet mean volume (Bld) [Entitic vol]9.5 fLNormal 6.6-10.1The [facility] Physician GroupComment on above:Performed By: #### BMP, CK, HS TROP, FE and TIBC, LILA, MG, SCAN CBC ####[facility] [address] [place] [address] USAPlatelets (Bld) [#/Vol]176 10*3/uL Hkhhzo001-344Vyr [facility] Physician [facility] HospitalComment on above:Performed By: #### BMP, CK, HS TROP, FE and TIBC, LILA, MG, SCAN CBC ####[place] [address] USAPoikilocytosisLifeCare Hospitals of North Carolina Physician GroupComment on above:Performed By: #### BMP, CK, HS TROP, FE and TIBC, LILA, MG, SCAN CBC ####[place] [address] USAPolychromasiaSFormerly [facility] Physician GroupComment on above:Performed By: #### BMP, CK, HS TROP, FE and TIBC, LILA, MG, SCAN CBC ####[place] [address] USARBC (Bld) [#/Vol]5.09 10*6/uLNormal3.90-5.60The [facility] Physician Group Comment on above:Performed By: #### BMP, CK, HS TROP, FE and TIBC, LILA, MG, SCAN CBC ####[facility] [address] [place] [address] [facility] WBC (Bld) [#/Vol]7.9 10*3/uLNormal4.1-10.5The [facility] Physician GroupComment on above:Performed By: #### BMP, CK, HS TROP, FE and TIBC, LILA, MG, SCAN CBC ####[facility] [address] [place] [address] USASerum or plasma anion gap determinationOrdered By: Abdullahi Canchola on 11-31-5966Mfvdy gap [Moles/Vol]Serum or plasma anion gap determinationHigh6.0-15.0[facility], Beachwooderum or plasma iron binding capacity measurement (mass/volume)Ordered By: Abdullahi Canchola on 66-98-1927Yish binding capacity [Mass/Vol]Iron binding capacity [Mass/volume] in Serum or Wbhrgh372-596ArwcassgrSelect Medical Cleveland Clinic Rehabilitation Hospital, Beachwooderum or plasma iron saturation measurement (mass fraction)Ordered By: Abdullahi Canchola on 30-36-6185Eyuc saturation [Mass fraction] Iron saturation [Mass Fraction] in Serum or BfdiacKhq40-47YdupqjilmSelect Medical Cleveland Clinic Rehabilitation Hospital, Beachwoododium [Moles/volume] in Serum or PlasmaOrdered By: Abdullahi Canchola on 82-48-9811Iocfyh [Moles/Vol]Sodium [Moles/volume] in Serum or Fksowa348-817 [facility] HospitalTransferrin [Mass/volume] in Serum or Plasma Ordered By: Abdullahi Canchola on 75-40-7145Ochvpcvwyta [Mass/Vol]Transferrin [Mass/volume] in Serum or Fzwvqe129-593OztfypxhrTuscarawas HospitalTroponin I High Sensitivityon 40-53-8753Lhgqpmzl I High Dicygprnmnn3Kjmyjp3-05Plq [facility] Physician GroupComment on above:Result Comment: The Troponin units of report have been changed to meet the Chest Pain Accreditationrequirement, element EC5.M1l2. Troponin units are changed from pg/ml to ng/L. Also, the decimal is removed and results are in whole numbers.PERFORMED BY:[address] [place], [place] [phone] MEDICAL DIRECTORMOKAREN CABAN M.D.Performed By: #### BMP, CK, HS TROP, FE and TIBC, LILA, MG, SCAN CBC ####[facility] [place] [address] USATroponin I.cardiac [Mass/volume] in Serum or Plasma by Detection limit <= 0.01 ng/Ordered By: Abdullahi Canchola on 57-60-7694Lqocygvo I.cardiac DL <= 0.01 ng/mL [Mass/Vol]Troponin I.cardiac [Mass/volume] in Serum or Plasma by Detection limit <= 0.01 ng/0-20[facility] Comment on above:The Troponin units of report have been changed to meet the Chest Pain Accreditation requirement, element EC5.M1l2. Troponin units are changed from pg/ml to ng/L. Also, the decimal is removed and results are in whole numbers.Urea nitrogen [Mass/volume] in Serum or PlasmaOrdered By: Abdullahi Canchola on 50-70-1529Thdg nitrogen [Mass/Vol]Urea nitrogen [Mass/volume] in Serum or PlasmaHigh7-25[facility] HospitalWBC Auto (Bld) [#/Vol]Ordered By: Abdullahi Canchola on 60-58-3068HQC (Bld) [#/Vol]Leukocytes [#/volume] in Blood by Automated count4.1-10.5FWhite HospitalAnisocytosis LM Ql (Bld)Ordered By: Jez Dominguez on 85-70-8165Aqaaiixbtkmi Ql (Bld)Anisocytosis [Presence] in Blood by Light microscopyTuscarawas HospitalB-Type Natriuretic Peptideon 59-41-8936Wofhtugoirm peptide B (Bld) [Mass/Vol]17.0 pg/mL Normal5-100The [facility] Physician GroupComment on above:Result Comment: PERFORMED BY:[place] [address] [place], [place] [phone] MEDICAL DIRECTORMIKE CABAN M.D. Performed By: #### HS TROP, BNP, PT, BMP, SCAN CBC, CK ####[facility] [place] [address] USABasic Metabolic Panelon 67-20-4103Nqmld gap [Moles/Vol]15.5 mmol/LHigh6.0-15.0The [facility] Physician GroupComment on above:Performed By: #### HS TROP, BNP, PT, BMP, SCAN CBC, CK ####[address] [address] USACalcium [Mass/Vol]9.7 mg/dLNormal8.6-10.3The [facility] Physician GroupComment on above: Performed By: #### HS TROP, BNP, PT, BMP, SCAN CBC, CK ####[place] [id number] USAChloride [Moles/Vol]98 mmol/L Qlicxi53-823Ush [facility] Physician GroupComment on above:Performed By: #### HS TROP, BNP, PT, BMP, SCAN CBC, CK ####[place] [address] USACO2 [Moles/Vol]25.6 mmol/NOezhdi21.0-31.0The [facility] Physician GroupComment on above:Performed By: #### HS TROP, BNP, PT, BMP, SCAN CBC, CK ####[place] [address] USACreatinine [Mass/Vol]2.51 mg/dLHigh0.70-1.30The [facility] Physician GroupComment on above:Performed By: #### HS TROP, BNP, PT, BMP, SCAN CBC, CK ####[place] [id number] [place] Creatinine Clr Calc Pdsidiyh11.78NormalThe [facility] Physician GroupComment on above:Result Comment: PERFORMED BY:[address] [place], [place] [phone] MEDICAL DIRECTORMIKE LIU M.D.Performed By: #### HS TROP, BNP, PT, BMP, SCAN CBC, CK ####[place] [id number] [place] Estimated GFR28.735 mL/MinNormalThe [facility] Physician [facility] HospitalComment on above: Performed By: #### HS TROP, BNP, PT, BMP, SCAN CBC, CK ####[place] [id number] [place] [id number] [place]AGlucose [Mass/Vol]278 mg/dLHigh 70-100[facility] Hospital Physician GroupComment on above:Result Comment: Random Glucose Reference Range is dependent on time and content of last meal. Glucose of more than 200 mg/dL in a nonstressed, ambulatory subject supports the diagnosis of Diabetes Mellitus. ADA recommended reference rangePerformed By: #### HS TROP, BNP, PT, BMP, SCAN CBC, CK ####[id number] [place] [address] USAPotassium [Moles/Vol]4.1 mmol/LNormal3.5-5.1The [facility] Physician [facility] County HospitalComment on above:Performed By: #### HS TROP, BNP, PT, BMP, SCAN CBC, CK ####[place] [address] USASodium [Moles/Vol]135 mmol/EFli601-717Awz [facility] Physician [facility] Comment on above:Performed By: #### HS TROP, BNP, PT, BMP, SCAN CBC, CK ####[address] USAUrea nitrogen [Mass/Vol]41 mg/dLHigh7-25The [facility] Physician GroupComment on above:Performed By: #### HS TROP, BNP, PT, BMP, SCAN CBC, CK ####[address] USABasophils Auto (Bld) [#/Vol]Ordered By: Jez Dominguez on 17-58-2129Zwtnchurk (Bld) [#/Vol]Automated basophil count0.0-0.2FWhite HospitalBasophils/100 WBC Auto (Bld)Ordered By: Jez Dominguez on 71-54-3662Zgtgftdcz/100 WBC (Bld)Automated basophil %.[facility] Medical CenterCalcium [Mass/volume] in Serum or PlasmaOrdered By: Jez Dominguez on 78-85-4218Nkqkxef [Mass/Vol]Calcium [Mass/volume] in Serum or Plasma8.6-10.3FWhite HospitalCarbon dioxide, total [Moles/volume] in Serum or PlasmaOrdered By: Jez Dominguez on 87-59-7297QB2 [Moles/Vol]Carbon dioxide, total [Moles/volume] in Serum or Plasma 21.0-31.0[facility]aw[facility] HospitalChloride [Moles/volume] in Serum or PlasmaOrdered By: Jez Dominguez on 51-01-7825Zaccepna [Moles/Vol]Chloride [Moles/volume] in Serum or Tupjfd95-222ZrydwxapsTuscarawas HospitalCreatine Kinaseon 52-18-1763IJ [Catalytic activity/Vol]101 U/GQxbpay42-380Dwn [facility] Physician GroupComment on above:Performed By: #### HS TROP, CK ####[facility] [address] [place] [address] USACK [Catalytic activity/Vol]126 U/VSapqtd18-102Iwy [facility] Physician [facility] County HospitalComment on above: Performed By: #### HS TROP, BNP, PT, BMP, SCAN CBC, CK ####[facility] [address] [place] [address] USACreatine kinase [Enzymatic activity/volume] in Serum or PlasmaOrdered By: Jez Dominguez on 39-13-4883FC [Catalytic activity/Vol]Creatine kinase [Enzymatic activity/volume] in Serum or Lshork68-182IrfaegqgrTuscarawas HospitalCreatinine [Mass/volume] in Serum or PlasmaOrdered By: Jez Dominguez on 35-27-2899Iracbidouf [Mass/Vol]Creatinine [Mass/volume] in Serum or PlasmaHigh0.70-1.30[facility] ECG 12 lead ECGon 27-66-3889FPQ 12 lead ECGNoNovant Health [facility] Physician Group ECG 12 lead ECGNoNovant Health Pender [facility] Center Physician GroupECG 12 lead ECGNoNovant Health Pender [facility] Center Physician GroupEosinophils Auto (Bld) [#/Vol]Ordered By: Jez Dominguez on 31-13-3478Tyncufnidgh (Bld) [#/Vol]Automated eosinophil count0.0-0.45 [facility] HospitalEosinophils/100 WBC Auto (Bld)Ordered By: Jez Dominguez on 84-32-5976Upaofzflpdo/100 WBC (Bld)Automated eosinophil %. [facility] HospitalErythrocyte distribution width Auto (RBC) [Ratio]Ordered By: Jez Dominguez on 61-91-6332Rgnmirqzhom distribution width (RBC) [Ratio]Erythrocyte distribution width [Ratio] by Automated countHigh 12.0-14.8T[facility]carawas HospitalErythrocyte morphology finding [Identifier] in BloodOrdered By: Jez Dominguez on 09-49-0170QGH morphology finding Nom (Bld)RBC morphologyTuscarawas HospitalGlucose Poct Glucometerson 05-94-6197Ggysyil [Mass/Vol]204 mg/dLNoNovant Health Pender Medical Center Physician GroupComment on above:Result Comment: Random Glucose Reference Range is dependent on time and content of last meal. Glucose of more than 200 mg/dL in a nonstressed, ambulatory subject supports the diagnosis of Diabetes Evelyn litus.PERFORMED BY:[facility] [place], [place] [phone] MEDICAL DIRECTORMIKE CABAN M.D. Performed By: #### GLULS ####Point of Care testing,Glucose [Mass/volume] in Serum or PlasmaOrdered By: Jez Dominguez on 68-81-9219Qcqywtl [Mass/Vol]Glucose [Mass/volume] in Serum or YbpczgAedg41-704YbbbvgkquTuscarawas Hospital Comment on above:ADA recommended reference rangeRandom Glucose Reference Range is dependent on time and content of last meal. Glucose of more than 200 mg/dL in a nonstressed, ambulatory subject supports the diagnosisof Diabetes Mellitus. Hematocrit Auto (Bld) [Volume fraction]Ordered By: Jez Dominguez on 10-10-2024 Hematocrit (Bld) [Volume fraction]Hematocrit [Volume Fraction] of Blood by Automated count38.8-50.0T[facility]carawas HospitalHemoglobin [Mass/volume] in BloodOrdered By: Jez Dominguez on 53-66-5243Vwsanrlgma (Bld) [Mass/Vol]Hemoglobin [Mass/volume] in Blood13.0-17.0T[facility]carawas HospitalINR in Platelet poor plasma by Coagulation assayOrdered By: Jez Dominguez on 96-74-9307BVN Coag (PPP) [Relative time]INR in Platelet poor plasma by Coagulation assayTuscarawas HospitalComment on above:INR Therapeutic Range A) Pre- and Peroperative OAT started two weeks before surgery. NOT HIP SURGERY: 1.5 - 2.5 HIP SURGERY: 2 - 3B) Primary and secondary prevention of venous THROMBOSIS: 2 - 3C) Active venous thrombosis, pulmonary embolismand prevention of recurrent venous thrombosis: 2 - 3D) Prevention of arterial thromboembolismincluding patients with mechanical heart valves: 3 - 4.5 Leukocytes [#/volume] corrected for nucleated erythrocytes in Blood by Automated counOrdered By: Jez Dominguez on 13-83-5359SIA corrected for nucl RBC Auto (Bld) [#/Vol]Leukocytes [#/volume] corrected for nucleated erythrocytes in Blood by Automated coun4.1-10.5FWhite HospitalLymphocytes Auto (Bld) [#/Vol]Ordered By: Jez Dominguez on 10-75-8643Uwixofgwmqk (Bld) [#/Vol] Lymphocytes [#/volume] in Blood by Automated count1.00-4.8T[facility]carawas HospitalLymphocytes/100 WBC Auto (Bld)Ordered By: Jez Dominguez on 78-84-1759Nwarsmofwmy/100 WBC (Bld)Lymphocytes/100 leukocytes in Blood by Automated count.[facility] HospitalH Auto (RBC) [Entitic mass] Ordered By: Jez Dominguez on 56-08-9715VPM (RBC) [Entitic mass]MCH [Entitic mass] by Automated lnrdqZkb56.5-35.2FWhite HospitalMCHC Auto (RBC) [Mass/Vol]Ordered By: Jez Dominguez on 31-10-7808MKEE (RBC) [Mass/Vol]MCHC [Mass/volume] by Automated count32.5-35.6FSt. Charles HospitalV Auto (RBC) [Entitic vol]Ordered By: Jez Dominguez on 52-54-5638MFF (RBC) [Entitic vol]MCV [Entitic volume] by Automated vwrhwVnv25.5-101Fire[facility] Medical CenterMicrocytes LM Ql (Bld)Ordered By: Jez Dominguez on 10-10-2024 Microcytes Ql (Bld)Microcytes [Presence] in Blood by Light microscopyTuscarawas HospitalMonocyte distribution width [Entitic volume] in Blood by AutomatedOrdered By: Jez Dominguez on 13-97-5490Xhuracal distribution width Auto (Bld) [Entitic vol]Monocyte distribution width [Entitic volume] in Blood by Automated0.00-20.00T[facility]carawas HospitalMonocytes Auto (Bld) [#/Vol] Ordered By: Jez Dominguez on 36-20-8438Qefhssdgd (Bld) [#/Vol]Automated blood monocyte count0.0-0.8T[facility]as HospitalMonocytes/100 WBC Auto (Bld)Ordered By: Jez Dominguez on 46-95-2868Rvkmlwfws/100 WBC (Bld)Automated monocyte %.[facility] HospitalNatriuretic peptide B [Mass/Vol] Ordered By: Jez Dominguez on 32-45-7284Pinqkyfendp peptide B (Bld) [Mass/Vol]BNP ser/plas5-100T[facility]carawas HospitalNeutrophils Auto (Bld) [#/Vol] Ordered By: Jez Dominguez on 78-77-3583Lyncnvyiqsz (Bld) [#/Vol]Neutrophils [#/volume] in Blood by Automated count1.8-7.7FWhite Hospital Neutrophils/100 WBC Auto (Bld)Ordered By: Jez Dominguez on 10-10-2024 Neutrophils/100 WBC (Bld)Automated neutrophil %.[facility]awas HospitalNo Panel InformationOrdered By: Jez Dominguez on 53-16-5059Vxcksenxv GFR (CKD-EPI)28.735 mL/MinTuscarawas HospitalPharmacy Creatinine Clearance (Chem34.78T[facility]carawas HospitalNucleated erythrocytes [Presence] in Blood by Automated countOrdered By: Jez Dominguez on 10-10-2024 Nucleated RBC Auto Ql (Bld)Nucleated erythrocytes [Presence] in Blood by Automated count0-0.5FWhite HospitalPlatelet adequacy [Presence] in Blood by Light microscopyOrdered By: Jez Dominguez on 10-10-2024 Platelets LM Ql (Bld)Platelet adequacy [Presence] in Blood by Light microscopy NormalTuscarawas HospitalPlatelet mean volume Auto (Bld) [Entitic vol]Ordered By: Jez Dominguez on 97-97-8724Nexwgelw mean volume (Bld) [Entitic vol]Platelet mean volume [Entitic volume] in Blood by Automated count6.6-10.1 [facility] HospitalPlatelet morphology finding [Identifier] in BloodOrdered By: Jez Dominguez on 10-89-0117Waziragd morphology finding Nom (Bld) Platelet morphology finding [Identifier] in BloodNormalTuscarawas HospitalPlatelets Auto (Bld) [#/Vol]Ordered By: Jez Dominguez on 10-10-2024 Platelets (Bld) [#/Vol]Platelets [#/volume] in Blood by Automated rcsfy204-052 [facility] HospitalPoikilocytosis [Presence] in Blood by Light microscopyOrdered By: Jez Dominguez on 28-84-2237Ozqlkpdfeskjfe LM Ql (Bld) Poikilocytosis [Presence] in Blood by Light microscopyTuscarawas HospitalPolychromasia [Presence] in Blood by Light microscopyOrdered By: Jez Dominguez on 05-91-4736Tlsdaefxptush LM Ql (Bld)Polychromasia [Presence] in Blood by Light microscopyTuscarawas HospitalPotassium [Moles/volume] in Serum or PlasmaOrdered By: Jez Dominguez on 75-15-5093Iddxeemsd [Moles/Vol] Potassium [Moles/volume] in Serum or Plasma3.5-5.1FWhite HospitalProthrombin Time INRon 38-87-8912UUA Coag (PPP) [Relative time]1.0 {INR} NormalThe [facility] Physician GroupComment on above:Result Comment: INR Therapeutic Range A) Pre- and [...] with mechanical heart valves: 3 - 4.5PERFORMED BY:[facility]A [phone] MEDICAL DIRECTORMIKE CABAN M.D. Performed By: #### HS TROP, BNP, PT, BMP, SCAN CBC, CK ####[address] [place] [address] USAPT Coag (PPP) [Time]11.4 s Normal9.0-12.9[facility] Physician [facility] County HospitalComment on above:Result Comment: A hematocrit value greater than 55% may lead to inaccurate results in coagulation testing. Patients having hematocrit values >55% require a special collection tube for coagulation studies. Please contact the laboratory at [phone] for redraw instructions.Performed By: #### HS TROP, BNP, PT, BMP, SCAN CBC, CK ####[address] [place] [address] [place] Prothrombin time (PT)Ordered By: Jez Dominguez on 69-46-7180FM Coag (PPP) [Time] Prothrombin time (PT)9.0-12.9T[facility]carawas HospitalComment on above:A hematocrit value greater than 55% may lead to inaccurate results in coagulation testing. Patientshaving hematocrit values >55% require a special collection tube for coagulation studies. Please contact the laboratory at [phone] for redraw instructions.RBC Auto (Bld) [#/Vol]Ordered By: Jez Dominguez on 10-10-2024 RBC (Bld) [#/Vol]Erythrocytes [#/volume] in Blood by Automated countHigh 3.90-5.60[facility], Beachwoodcan and CBCon 07-05-3227Cwdvwexdnyll Ql (Bld)MarkedNoMercy Health St. Charles HospitalComment on above:Performed By: #### HS TROP, BNP, PT, BMP, SCAN CBC, CK ####[address] [address] USABasophils (Bld) [#/Vol]0.1 10*3/uLNormal0.0-0.2 The [facility] Physician [facility] HospitalComment on above:Performed By: #### HS TROP, BNP, PT, BMP, SCAN CBC, CK ####[address]Basophils/100 WBC (Bld)1.3 %Normal.The [facility] Physician GroupComment on above:Performed By: #### HS TROP, BNP, PT, BMP, SCAN CBC, CK ####[address] Eosinophils (Bld) [#/Vol]0.3 10*3/uLNormal0.0-0.45The [facility] Physician Group Comment on above:Performed By: #### HS TROP, BNP, PT, BMP, SCAN CBC, CK ####[address] Eosinophils/100 WBC (Bld)4.0 %Normal.The [facility] Physician GroupComment on above:Performed By: #### HS TROP, BNP, PT, BMP, SCAN CBC, CK ####[address] StreetErythrocyte distribution width (RBC) [Ratio]23.4 %High12.0-14.8The [facility] Physician [facility] Comment on above:Performed By: #### HS TROP, BNP, PT, BMP, SCAN CBC, CK ####[address] Hematocrit (Bld) [Volume fraction]42.4 %Lumqzg18.8-50.0The [facility] Physician GroupComment on above:Performed By: #### HS TROP, BNP, PT, BMP, SCAN CBC, CK ####[address] Hemoglobin (Bld) [Mass/Vol]14.4 g/dBDcmzwn24.0-17.0The [facility] Physician Group Comment on above:Performed By: #### HS TROP, BNP, PT, BMP, SCAN CBC, CK ####[address] Lymphocytes (Bld) [#/Vol]2.0 10*3/uLNormal1.00-4.8The [facility] Physician Group Comment on above:Performed By: #### HS TROP, BNP, PT, BMP, SCAN CBC, CK ####[id number] [place] Lymphocytes/100 WBC (Bld)23.4 %Normal.The [facility] Physician GroupComment on above:Performed By: #### HS TROP, BNP, PT, BMP, SCAN CBC, CK ####[address] [facility] (RBC) [Entitic mass]25.6 pgLow27.5-35.2The [facility] Physician GroupComment on above:Performed By: #### HS TROP, BNP, PT, BMP, SCAN CBC, CK ####[address]V (RBC) [Entitic vol]75.5 fLLow 83.5-101The [facility] Physician GroupComment on above:Performed By: #### HS TROP, BNP, PT, BMP, SCAN CBC, CK ####[id number] USAMean Corpuscular HGB Conc33.9 g/qFAjgbpm75.5-35.6The [facility] Physician GroupComment on above:Performed By: #### HS TROP, BNP, PT, BMP, SCAN CBC, CK ####[address] USAMicrocytosisMarkedNormalThe [facility] Physician GroupComment on above: Performed By: #### HS TROP, BNP, PT, BMP, SCAN CBC, CK ####[address] USAMonocytes (Bld) [#/Vol]0.8 10*3/uLNormal0.0-0.8The [facility] Physician GroupComment on above:Performed By: #### HS TROP, BNP, PT, BMP, SCAN CBC, CK ####[address] USAMonocytes/100 WBC (Bld)16.66 %Normal0.00-20.00 The [facility] Physician GroupComment on above:Performed By: #### HS TROP, BNP, PT, BMP, SCAN CBC, CK ####[place] [address] USAMonocytes/100 WBC (Bld)9.5 %Normal.The [facility] Physician GroupComment on above:Performed By: #### HS TROP, BNP, PT, BMP, SCAN CBC, CK ####[address] Neutrophils (Bld) [#/Vol]5.3 10*3/uLNormal1.8-7.7The [facility] Physician Group Comment on above:Performed By: #### HS TROP, BNP, PT, BMP, SCAN CBC, CK ####[address] Neutrophils/100 WBC (Bld)61.8 %Normal.The [facility] Physician GroupComment on above:Performed By: #### HS TROP, BNP, PT, BMP, SCAN CBC, CK ####[place] [address] USANRBC%0.2 /100{WBC} Normal0-0.5The [facility] Physician GroupComment on above:Performed By: #### HS TROP, BNP, PT, BMP, SCAN CBC, CK ####[place] [address] USAPlatelet EstimateNormalNormalNormalThe [facility] Physician GroupComment on above:Performed By: #### HS TROP, BNP, PT, BMP, SCAN CBC, CK ####[address] [phone] [facility] Platelet mean volume (Bld) [Entitic vol]9.8 fLNormal6.6-10.1The [facility] Physician GroupComment on above:Performed By: #### HS TROP, BNP, PT, BMP, SCAN CBC, CK ####[address] Platelet MorphologyNormalNormalHCA Florida O[facility]ied[facility] Physician GroupComment on above:Result Comment: PERFORMED BY:[address] [place], [place] [phone] MEDICAL DIRECTORMIKE LIU M.D.Performed By: #### HS TROP, BNP, PT, BMP, SCAN CBC, CK ####[address] [address] [facility] Platelets (Bld) [#/Vol]203 10*3/tRQlwtyn720-719Xtm [facility] Physician Group Comment on above:Performed By: #### HS TROP, BNP, PT, BMP, SCAN CBC, CK ####[address] [address] [facility] PoikilocytosisSFormerly [facility] Physician GroupComment on above: Performed By: #### HS TROP, BNP, PT, BMP, SCAN CBC, CK ####[address] [address] [facility] FACILITYPolychromasiaSFormerly [facility] Physician GroupComment on above:Performed By: #### HS TROP, BNP, PT, BMP, SCAN CBC, CK ####[address] [address] USARBC (Bld) [#/Vol]5.62 10*6/uLHigh3.90-5.60The [facility] Physician GroupComment on above:Performed By: #### HS TROP, BNP, PT, BMP, SCAN CBC, CK ####[address] [address] USAWBC (Bld) [#/Vol]8.7 10*3/uLNormal4.1-10.5The [facility] Physician GroupComment on above:Performed By: #### HS TROP, BNP, PT, BMP, SCAN CBC, CK ####[address] [address] USASerum or plasma anion gap determinationOrdered By: Jez Dominguez on 97-95-2697Kzlif gap [Moles/Vol] Serum or plasma anion gap determinationHigh6.0-15.0[facility], Beachwoododium [Moles/volume] in Serum or PlasmaOrdered By: Jez Dominguez on 21-35-9758Aqtyyw [Moles/Vol]Sodium [Moles/volume] in Serum or IzwvovKqc348-817 [facility] HospitalTroponin I High Sensitivityon 10-10-2024 Troponin I High Ylfpaaactjy5Sudhli2-18Wid [facility] Physician GroupComment on above:Result Comment: The Troponin units of report have been changed to meet the Chest Pain Accreditationrequirement, element EC5.M1l2. Troponin units are changed from pg/ml to ng/L. Also, the decimal is removed and results are in whole numbers.PERFORMED BY:[address]Dar[address] MaryCHALINO, [place] [phone] MEDICAL DIRECTORMIKE LEES ALEXA VirkPerformed By: #### HS TROP, CK ####[address] [address] USATroponin I High Qzxlzsomkfx6Yzbbkd5-92 The [facility] Physician GroupComment on above:Order Comment: 4P/27Result Comment: The Troponin units of report have been changed to meet the Chest Pain Accreditationrequirement, element EC5.M1l2. Troponin units are changed from pg/ml to ng/L. Also, the decimal is removed and results are in whole numbers.PERFORMED BY:[address] [place], [place] [phone] MEDICAL DIRECTORMIKE LEESALEXA Virk Performed By: #### HS TROP ####[address] [address] USATroponin I High Okmcjhcyuxi1Rymmvk8-38Zyz [facility] Physician GroupComment on above:Result Comment: The Troponin units of report have been changed to meet the Chest Pain Accreditationrequirement, element EC5.M1l2. Troponin units are changed from pg/ml to ng/L. Also, the decimal is r emoved and results are in whole numbers.PERFORMED BY:[facility] [place], [place] [phone] MEDICAL DIRECTORMIKE CABAN M.D.Performed By: #### HS TROP, BNP, PT, BMP, SCAN CBC, CK ####[facility] [place] [address] USATroponin I.cardiac [Mass/volume] in Serum or Plasma by Detection limit <= 0.01 ng/Ordered By: Jez Dominguez on 97-42-6449Edjabrwe I.cardiac DL <= 0.01 ng/mL [Mass/Vol]Troponin I.cardiac [Mass/volume] in Serum or Plasma by Detection limit <= 0.01 ng/0-20[facility]as HospitalComment on above:The Troponin units of report have been changed to meet the Chest Pain Accreditation requirement, element EC5.M1l2. Troponin units are changed from pg/ml to ng/L. Also, the decimal is removed and results are in whole numbers.Urea nitrogen [Mass/volume] in Serum or PlasmaOrdered By: Jez Dominguez on 07-25-5415Mspo nitrogen [Mass/Vol]Urea nitrogen [Mass/volume] in Serum or PlasmaHigh7-25 [facility] HospitalWBC Auto (Bld) [#/Vol]Ordered By: Jez Dominguez on 49-40-0429YOC (Bld) [#/Vol]Leukocytes [#/volume] in Blood by Automated count 4.1-10.5FWhite HospitalX-ray reportOrdered By: Олег Oscar on 15-82-7984Bsoii report[address] [address] XRay Report Signed Patient: Myra Pickard SR MR#: [id number] : 1965 Acct:[id number] Age/Sex: 59 / M ADM Date: 5 [...] Oscar M.D. 10/10/2024 3:12 PM Dictation Location: RADIO-PC-17 Transcribed By: BOB 10/10/24 151 Dictated By: Олег Oscar II, MD 10/10/24 1509 Signed By: 10/10/24 151 [facility] Work Phone: xr chest 2V*on 68-83-2583OJ chest 2V*NormalThe [facility] Physician GroupAmbulatory Visit Summaryon 97-03-7647Ylmugbqdps Visit SummaryAmbulatory Visit Summary MYRA PICKARD SR :1965 Visit [...] mg Tab) glimepiride (Amaryl 2 mg Tab) hydrochlorothiazide-valsartan (hydrochlorothiazide-valsartan 12.5 mg-160 mg Tab) insulin glargine (insulin [...] Yeyo ROWE MD Where: [facility] [address] [address]- You Need to Schedule the Following Appointments Follow Up with Yeyo ROWE MD, URL When: Where: [address] [place] [address]- Medications What How Much When Instructions Unchanged tamsulosin (tamsulosin 0.4 mg Cap) 1 Capsules By Mouth 2 times a day Pickup at [facility]/pharmacy #[id number] Unchanged albuterol (ProAir HFA) Inhalation Every 6 [...] Tablets By Mouth Every day Contact prescribing physicianif questions or concerns Unchanged dulaglutide (Trulicity Pen [...] prescribing physician if questions or concerns Unchanged hydrochlorothiazide-valsartan (hydrochlorothiazide-valsartan 12.5 mg- 160 mg Tab) 1 Tablets By Mouth Every day Contact prescribing physician if questions or concerns Unchanged insulin glargine (insulin glargine 100 units/ mL SubQ Malaika 10 mL) 35 Units Subcutaneous Atbedtime Contact prescribing physician if questions or concerns [...] Transdermal Every day Cont (more content not included)...[facility] Ambulatory Visit SummaryAmbulatory Visit Summary MYRA PICKARD SR :1965 Visit [...] mg Tab) glimepiride (Amaryl 2 mg Tab) hydrochlorothiazide-valsartan (hydrochlorothiazide-valsartan 12.5 mg-160 mg Tab) insulin glargine (insulin [...] MARYBEL VANG PA-C Where: [facility] [address] [place] [address]- You Need to Schedule the Following Appointments Follow Up with SOLEDAD HERRERA, ROSALIA Garcia When: Where: [address] [place] [address]- Medications What How Much When Instructions Unchanged [...] Tablets By Mouth Every day Contact prescribing physicianif questions or concerns Unchanged dulaglutide (Trulicity Pen [...] prescribing physician if questions or concerns Unchanged hydrochlorothiazide-valsartan (hydrochlorothiazide-valsartan 12.5 mg- 160 mg Tab) 1 Tablets By Mouth Every day Contact prescribing physician if questions or concerns Unchanged insulin glargine (insulin glargine 100 units/ mL SubQ Malaika 10 mL) 35 Units Subcutaneous Atbedtime Contact prescribing physician if questions or concerns [...] Contact prescribing physician if (more content not included)...[facility] Office/Clinic Noteon 77-63-6562Ayfqfxe Office/Clinic NoteUrology Office/Clinic Note Chief Complaint f/u to scrotal pain HPI Staff F/u for testicular pain. Dx: orchitis Pt states he is having intense right sided testicular pain and some swelling. Pt has not had any imaging done. Did use Doxy x 3 weeks ( 2 rounds). Pt states he did respond well to that but as soon jaiden has intercourse all of the pain and [...] weeks in November 2022. [facility] with sudden onset scrotal/groin pain. [...] pain to having his testicle in a vise.Pt states he has extreme pain after intercourse. [...] No b.t. High-grade trabeculation. Small open mouth diverticuli.Urodynamics shows a low flow, incomplete emptying and [...] ranged from 534-787 ml when pt did CICprior to TURP. Has not had to CIC [...] 5. Antiplatelet or antithrombotic long-term use (Z79.02: intermediate manager (current) use of antithrombotics/antiplatelets) On Plavix. Hx of NE. Elevated risk for periop complications in the future. Follow-up With When Contact Information SOLEDAD HERRERA, Yeyo Blum, URL [address] [place] [phone]- Additional Instructions: 4 mos w/ PVR Patient [...] COPD type A Fibromyalgi (more content not included)...[facility] Comment on above:Result Comment: Electronically Signed By: Yeyo ROWE MD\.br\Date and Time Signed: 09/27/24 12:03 EDT\.br\Electronically Co-Signed By: Mattie Foster\.br\Date and Time Co-Signed: 09/28/2511:00 RPEXzA0n HPLC (Bld) [Mass fraction]on 22-29-4025TqH3q (Bld) [Mass fraction]Hemoglobin A1c/Hemoglobin.total in Blood by HPLCSycamore Medical Center Alanine aminotransferase [Enzymatic activity/volume] in Serum or PlasmaOrdered By: Kevon Viera on 78-60-1277IDU [Catalytic activity/Vol]Alanine aminotransferase [Enzymatic activity/volume] in Serum or PlasmaTuscarawas HospitalAlbumin [Mass/volume] in Serum or Plasma by Bromocresol green (BCG) dye binding methoOrdered By: Kevon Viera on 12-97-5881Yijznri BCG dye [Mass/Vol]Albumin [Mass/volume] in Serum or Plasma by Bromocresol green (BCG) dye binding methoLow3.5-5.7FWhite HospitalAlkaline phosphatase [Enzymatic activity/volume] in Serum or PlasmaOrdered By: Obshelly Haydenomar on 19-99-3399HGF [Catalytic activity/Vol]Alkaline phosphatase [Enzymatic activity/volume] in Serum or Dvjfyn97-700FbbxiypdsTuscarawas Hospital Aspartate aminotransferase [Enzymatic activity/volume] in Serum or PlasmaOrdered By: Obaydamaira Daromar on 33-04-8837CJI [Catalytic activity/Vol]Aspartate aminotransferase [Enzymatic activity/volume] in Serum or SqttgtIev08-82IprfnvbrkTuscarawas HospitalBilirubin.total [Mass/volume] in Serum or PlasmaOrdered By: Objosedamaira Haydenomar on 79-40-2601Eifrifijj [Mass/Vol]Bilirubin.total [Mass/volume] in Serum or Plasma0.3-1.0Tuscarawas HospitalCalcium [Mass/volume] in Serum or PlasmaOrdered By: Objosedah Daromar on 23-67-0104Qzunvpl [Mass/Vol]Calcium [Mass/volume] in Serum or PlasmaLow8.6-10.3FWhite HospitalCarbon dioxide, total [Moles/volume] in Serum or PlasmaOrdered By: Objosedamaira Daromar on 90-01-4770TM5 [Moles/Vol]Carbon dioxide, total [Moles/volume] in Serum or Icrsdg18.0-31.0[facility] Chloride [Moles/volume] in Serum or PlasmaOrdered By: Objosedamaiar Haydenomar on 73-91-6307Kfjwncaq [Moles/Vol]Chloride [Moles/volume] in Serum or PlasmaHigh 98-107Tuscarawas HospitalComprehensive Metabolic Panelon 53-36-2054Iidpzfq [Mass/Vol]3.4 g/dLLow3.5-5.7The [facility] Comment on above:Performed By: #### CBCNO, CMP ####[facility] [address] [place], [place] [address]PEBYcjwqjx/Globulin [Mass ratio]1.4 {ratio}NormalThe [facility] Physician GroupComment on above:Performed By: #### BENIGNO, CMP ####[facility] [facility] [place] [address] USAALP [Catalytic activity/Vol]93 U/AJpuors19-704Hvv [facility] Comment on above:Performed By: #### BENIGNO, CMP ####[facility] [place] [address]NHPTTJ [Catalytic activity/Vol]9 U/LNormal 7-52The [facility] Physician GroupComment on above:Performed By: #### BENIGNO, CMP ####[facility] [facility] [place] [address]AHXRvtcc gap [Moles/Vol]10.7 mmol/LNormal6.0-15.0The [facility] Physician GroupComment on above:Performed By: #### BENIGNO, CMP ####[facility] [facility] hospital[place], [place] [address]YVMMUO [Catalytic activity/Vol]12 U/YKxs11-78Lqe [facility] Physician GroupComment on above:Performed By: #### BENIGNO, CMP ####[facility] [facility] [place], [place] [address]OCC Bilirubin [Mass/Vol]0.3 mg/dLNormal0.3-1.0The [facility] Physician GroupComment on above:Performed By: #### BENIGNO, CMP ####[facility] [facility] hospitalpa[place], [place] [address]MDVGrqctwx [Mass/Vol]7.5 mg/dLLow8.6-10.3The [facility] Physician GroupComment on above:Performed By: #### BENIGNO, CMP ####[facility] [facility] [place], [place] [address]YFBLdhjphsp [Moles/Vol]111 mmol/NOqvi10-920Orm [facility] Physician GroupComment on above: Performed By: #### BENIGNO, CMP ####[facility] [facility] [place] [address]BGDBZ3 [Moles/Vol]21.5 mmol/WTrrokd69.0-31.0The [facility] Physician GroupComment on above:Performed By: #### BENIGNO, CMP ####[facility] [place], [place] [address]SVC Creatinine [Mass/Vol]1.59 mg/dLHigh0.70-1.30The [facility] Physician GroupComment on above:Performed By: #### BENIGNO, CMP ####[facility] [place], [place] [address]CSCEthohpheda Clr Calc Lpweutaa41.91NormHCA Florida Central Tampa Emergency Physician GroupComment on above:Result Comment: PERFORMED BY:[address] [place], [place] [phone] MEDICAL DIRECTORMIKE CABAN M.D.Performed By: #### BENIGNO, CMP ####[address] [address]MQT Estimated GFR49.698 mL/MinNoNovant Health Pender [facility] Center Physician [facility]ippah County HospitalComment on above: Performed By: #### BENIGNO, CMP ####[address] [address]RNBBpfwnith (S) [Mass/Vol]2.4 g/dLHCA Florida [facility]ied[facility] Physician [facility] County HospitalComment on above:Performed By: #### BENIGNO, CMP ####[address] [address]JIXZkofcem [Mass/Vol]140 mg/gXFqge74-909Mrb [facility] Physician GroupComment on above:Result Comment: Random Glucose Reference Range is dependent on time and content of last meal. Glucose of more than 200 mg/dL in a nonstressed, ambulatory subject supports the diagnosis of Diabetes Mellitus. ADA recommended reference rangePerformed By: #### BENIGNO, CMP ####[facility] [place], [place] [address]NKCGtzkqidim [Moles/Vol]4.2 mmol/LNormal3.5-5.1The [facility] Physician GroupComment on above:Performed By: #### BENIGNO, CMP ####[address] [place], [place] [address]SZMBjokhyn [Mass/Vol]5.8 g/dLLow 6.4-8.9The [facility] Physician GroupComment on above:Performed By: #### CBCNO, CMP ####[facility] [address] [place], [place] [address]TWX Sodium [Moles/Vol]139 mmol/JRizxgp425-174Yvf [facility] Physician GroupComment on above:Performed By: #### CBCNO, CMP ####[facility] [address] [place], [place] [address]XPDGmnl nitrogen [Mass/Vol]13 mg/dLNormal7-25The [facility] Physician GroupComment on above:Performed By: #### CBCNO, CMP ####[facility] [address] [place], [place] [address]BLH Creatinine [Mass/volume] in Serum or PlasmaOrdered By: Kevon Viera on 87-40-1969Tgqlhfrexb [Mass/Vol]Creatinine [Mass/volume] in Serum or PlasmaHigh 0.70-1.30Tuscarawas HospitalErythrocyte distribution width Auto (RBC) [Ratio]Ordered By: Kevon Viera on 19-88-4142Ucqurhhxqop distribution width (RBC) [Ratio]Erythrocyte distribution width [Ratio] by Automated countHigh 12.0-14.8Tuscarawas HospitalGlobulin Calc (S) [Mass/Vol]Ordered By: Kevon Viera on 22-98-7885Pnnmuklb (S) [Mass/Vol]Serum globulin measurement by calculation (mass/volume)Tuscarawas HospitalGlucose Glucometer (BldC) [Mass/Vol]Ordered By: Kevon Viera on 58-36-1572Iwjtvco [Mass/Vol]Capillary blood glucose measurement by glucometer (mass/volume) Tuscarawas HospitalComment on above:Random Glucose Reference Range is dependent on time and content of last meal. Glucose of more than 200 mg/dL in a nonstressed, ambulatory subject supports the diagnosis of Diabetes Mellitus.Glucose Poct Glucometerson 13-85-0544Gsclozl [Mass/Vol]150 mg/dLNormal The [facility] Physician GroupComment on above:Result Comment: Random Glucose Reference Range is dependent on time and content of last meal. Glucose of more than 200 mg/dL in a nonstressed, ambulatory subject supports the diagnosis of Diabetes Mellitus.PERFORMED BY:[address] [place]Dar[place]Mary[place], [place] [phone] MEDICAL DIRECTORMIKE LIU M.D.Performed By: #### GLULS ####Point of Care testing,Glucose [Mass/Vol]173 mg/dLNormalThBingham Memorial Hospital Physician GroupComment on above:Result Comment: Random Glucose Reference Range is dependent on time and content of last meal. Glucose of more than 200 mg/dL in a nonstressed, ambulatory subject supports the diagnosis of Diabetes Mellitus.PERFORMED BY:[address] [place], [place] [phone] MEDICAL DIRECTORMIKE CABAN M.D.Performed By: #### GLULS ####Point of Care testing,Glucose [Mass/volume] in Serum or PlasmaOrdered By: Obshelly Bazzir on 46-82-0645Xessznb [Mass/Vol]Glucose [Mass/volume] in Serum or YvlzlzPdly53-327 Tuscarawas HospitalComment on above:ADA recommended reference rangeRandom Glucose Reference Range is dependent on time and content of last meal. Glucose of more than 200 mg/dL in a nonstressed, ambulatory subject supports the diagnosisof Diabetes Mellitus.Hematocrit Auto (Bld) [Volume fraction]Ordered By: Objosedamaira Haydenomar on 09-42-8189Qtchcqzekp (Bld) [Volume fraction]Hematocrit [Volume Fraction] of Blood by Automated ufxctWpc35.8-50.0 Tuscarawas HospitalHemoglobin [Mass/volume] in BloodOrdered By: Objosedamaira Haydenomar on 88-14-7452Xczylkvyyy (Bld) [Mass/Vol]Hemoglobin [Mass/volume] in FsczjGsl21.0-17.0Tuscarawas HospitalHemogram CBC Without Diff on 26-71-7785Zgpvnvgvifn distribution width (RBC) [Ratio]19.9 %High12.0-14.8The [facility] Physician GroupComment on above:Performed By: #### CBCNO, CMP ####[facility] [place] [address]WRF Hematocrit (Bld) [Volume fraction]30.0 %Low38.8-50.0The [facility] Physician GroupComment on above:Performed By: #### BENIGNO, CMP ####[address] [address]LHKNgmedltzyv (Bld) [Mass/Vol]9.5 g/dLLow13.0-17.0The [facility] Physician GroupComment on above:Performed By: #### BENIGNO, CMP ####[address] [address]XBVTNC (RBC) [Entitic mass]21.5 pgLow27.5-35.2The [facility] Comment on above:Performed By: #### BENIGNO, CMP ####[address] [address]XBJGBM (RBC) [Entitic vol]67.8 fLLow 83.5-101The [facility] Physician GroupComment on above:Performed By: #### BENIGNO, CMP ####[address] [address]MKHSdtp Corpuscular HGB Conc31.7 g/dLLow32.5-35.6The [facility] Physician GroupComment on above:Performed By: #### BENIGNO, CMP ####[address] [address]LDYJeiaecwx mean volume (Bld) [Entitic vol]10.1 fLNormal 6.6-10.1The [facility] Physician GroupComment on above:Result Comment: PERFORMED BY:[address] [place]DarrianMary[place], [place] [phone] MEDICAL DIRECTORMIKE CABAN M.D.Performed By: #### BENIGNO, CMP ####[address] [address] USAPlatelets (Bld) [#/Vol]153 10*3/lHEwoyhk805-113Nhv [facility] Comment on above:Performed By: #### BENIGNO, CMP ####[address], [place] [address]EYEIDI (Bld) [#/Vol]4.42 10*6/uLNormal 3.90-5.60The [facility] Physician GroupComment on above:Performed By: #### CBCNO, CMP ####[facility] [address] [place], [place] [address]HOXUUY (Bld) [#/Vol]8.0 10*3/uLNormal4.1-10.5The [facility] Physician GroupComment on above:Performed By: #### CBCNO, CMP ####[facility] [address] [place], [place] [address]TXCDstmscuecj [#/volume] corrected for nucleated erythrocytes in Blood by Automated counOrdered By: Kevon Viera on 08-13-2024 WBC corrected for nucl RBC Auto (Bld) [#/Vol]Leukocytes [#/volume] corrected for nucleated erythrocytes in Blood by Automated coun4.1-10.5FWooster Community Hospital Auto (RBC) [Entitic mass]Ordered By: Kevon Haydenomar on 32-53-7660TPI (RBC) [Entitic mass]MCH [Entitic mass] by Automated countLow 27.5-35.2FSt. Charles HospitalHC Auto (RBC) [Mass/Vol]Ordered By: Kevon Haydenomar on 06-88-5493JOUU (RBC) [Mass/Vol]MCHC [Mass/volume] by Automated ayrmlZgd64.5-35.6FSt. Charles HospitalV Auto (RBC) [Entitic vol]Ordered By: Kevon Haydenomar on 79-55-5848UCT (RBC) [Entitic vol]MCV [Entitic volume] by Automated squhrDed99.5-101[facility] No Panel InformationOrdered By: Kevon Viera on 50-52-5962Zqlxkdnnf GFR (CKD-EPI)49.698 mL/MinTuscarawas HospitalPharmacy Creatinine Clearance (Chem54.91[facility]49.698 mL/MinTuscarawas Hospital54.91T[facility]carawas HospitalPlatelet mean volume Auto (Bld) [Entitic vol]Ordered By: Obaydah Daromar on 44-59-8075Fxlrvgmz mean volume (Bld) [Entitic vol]Platelet mean volume [Entitic volume] in Blood by Automated count6.6-10.1FWhite HospitalPlatelets Auto (Bld) [#/Vol]Ordered By: Obaydah Daromar on 47-57-6235Uvetuhkal (Bld) [#/Vol]Platelets [#/volume] in Blood by Automated ceycv685-692IbavbcpiuTuscarawas Hospital Potassium [Moles/volume] in Serum or PlasmaOrdered By: Obaydah Daromar on 87-49-9267Qswnxawqr [Moles/Vol]Potassium [Moles/volume] in Serum or Plasma 3.5-5.1FWhite HospitalProtein [Mass/volume] in Serum or Plasma Ordered By: Obaydah Daromar on 39-38-1402Cwuzqyg [Mass/Vol]Protein [Mass/volume] in Serum or PlasmaLow6.4-8.9Tuscarawas HospitalRBC Auto (Bld) [#/Vol]Ordered By: Obaydah Daromar on 19-72-2684RMM (Bld) [#/Vol]Erythrocytes [#/volume] in Blood by Automated count3.90-5.60[facility] Serum or plasma albumin/globulin mass ratioOrdered By: Obaydah Daromar on 45-62-0395Gtwhxkq/Globulin [Mass ratio]Serum or plasma albumin/globulin mass ratioSelect Medical Cleveland Clinic Rehabilitation Hospital, Beachwooderum or plasma anion gap determination Ordered By: Obaydah Daromar on 00-87-1303Gzkxl gap [Moles/Vol]Serum or plasma anion gap determination6.0-15.0[facility], Beachwoododium [Moles/volume] in Serum or PlasmaOrdered By: Obaydah Daromar on 82-16-6208Xdwuhn [Moles/Vol]Sodium [Moles/volume] in Serum or Vwwluo543-738PvcbescwrTuscarawas HospitalUrea nitrogen [Mass/volume] in Serum or PlasmaOrdered By: Obaydah Daromar on 89-07-4244Zvlq nitrogen [Mass/Vol]Urea nitrogen [Mass/volume] in Serum or Plasma12-27T[facility]carawas HospitalAlbumin Levelon 08-12-2024 Albumin [Mass/Vol]3.5 g/dLNormal3.5-5.7The [facility] Physician GroupComment on above:Result Comment: PERFORMED BY:[address] [place], [place] [phone] MEDICAL DIRECTORMIKE LIU M.D.Performed By: #### SCAN CBC, ALB, BMP ####[address] [place] [address] USAAnisocytosis LM Ql (Bld) Ordered By: Marge Andino on 06-02-5588Ypwbaxefqrzc Ql (Bld)Anisocytosis [Presence] in Blood by Light microscopyTuscarawas HospitalBasic Metabolic Panelon 04-71-7067Aymah gap [Moles/Vol]11.6 mmol/LNormal6.0-15.0The [facility] Physician GroupComment on above:Performed By: #### SCAN CBC, ALB, BMP ####[address] [address] USACalcium [Mass/Vol]6.3 mg/dLOff scale low8.6-10.3The [facility] Physician GroupComment on above:Result Comment: Critical Result Called to and read back by: NOT FIRST TIME CRITICAL at: 08/12/2024 06:59:53 by:RGPerformed By: #### SCAN CBC, ALB, BMP ####[address] [address] [place] Chloride [Moles/Vol]107 mmol/YFylpvx32-374Cpa [facility] Physician GroupComment on above:Performed By: #### SCAN CBC, ALB, BMP ####[address] [address] USACO2 [Moles/Vol]25.1 mmol/LNormal 21.0-31.0The [facility] GroupComment on above:Performed By: #### SCAN CBC, ALB, BMP ####[address] [address] USACreatinine [Mass/Vol]1.79 mg/dLSignificant change up0.70-1.30The [facility] Physician GroupComment on above:Performed By: #### SCAN CBC, ALB, BMP ####[place] [address] [place] Creatinine Clr Calc Nmtvpvjv30.77NormalThe [facility] Physician GroupComment on above:Result Comment: PERFORMED BY:[address] [place], [place] [phone] MEDICAL DIRECTORMIKE LIU M.D.Performed By: #### SCAN CBC, ALB, BMP ####[place] [address] USAEstimated GFR43.111 mL/Min NormalThe [facility] Physician GroupComment on above:Performed By: #### SCAN CBC, ALB, BMP ####[place] [address] USAGlucose [Mass/Vol]91 mg/eGWjtcwj47-703Qul [facility] Physician GroupComment on above:Result Comment: Random Glucose Reference Range is dependent on time and content of last meal. Glucose of more than 200 mg/dL in a nonstressed, ambulatory subject supports the diagnosis of Diabetes Mellitus. ADA recommended reference rangePerformed By: #### SCAN CBC, ALB, BMP ####[place] [address] USAPotassium [Moles/Vol]3.7 mmol/LNormal3.5-5.1The [facility] Physician GroupComment on above:Performed By: #### SCAN CBC, ALB, BMP ####[address] USASodium [Moles/Vol]140 mmol/TIdgjxw440-257Ebf [facility] Physician GroupComment on above:Performed By: #### SCAN CBC, ALB, BMP ####[place] [address] USAUrea nitrogen [Mass/Vol]20 mg/dLNormal7-25The [facility] Physician GroupComment on above:Performed By: #### SCAN CBC, ALB, BMP ####[facility] [place] [address] USABasophils Auto (Bld) [#/Vol]Ordered By: Marge Andino on 84-38-0505Agbiwasfn (Bld) [#/Vol]Automated basophil count 0.0-0.2FWhite HospitalBasophils/100 WBC Auto (Bld)Ordered By: Marge Andino on 05-05-6720Isovjhzqx/100 WBC (Bld)Automated basophil %. [facility] HospitalEosinophils Auto (Bld) [#/Vol]Ordered By: Marge Andino on 75-46-8462Mrggsnmbojo (Bld) [#/Vol]Automated eosinophil count 0.0-0.45Tuscarawas HospitalEosinophils/100 WBC Auto (Bld)Ordered By: Marge Andino on 36-11-5622Uztvvdttogy/100 WBC (Bld)Automated eosinophil % .[facility]awas HospitalErythrocyte morphology finding [Identifier] in BloodOrdered By: Marge Andino on 66-81-6207JCA morphology finding Nom (Bld) RBC morphologyTuscarawas HospitalGlucose Poct Glucometerson 61-72-8898Jbhlwod [Mass/Vol]168 mg/dLNormalThe [facility] Physician GroupComment on above:Result Comment: Random Glucose Reference Range is dependent on time and content of last meal. Glucose of more than 200 mg/dL in a nonstressed, ambulatory subject supports the diagnosis of Diabetes Mellitus.PERFORMED BY:[address] [place], [place] [phone] MEDICAL DIRECTORMIKE CABAN M.D. Performed By: #### GLULS ####Point of Care testing,Glucose [Mass/Vol]162 mg/dL NormalThe [facility] Physician GroupComment on above:Result Comment: Random Glucose Reference Range is dependent on time and content of last meal. Glucose of more than 200 mg/dL in a nonstressed, ambulatory subject supports the diagnosis of Diabetes Mellitus.PERFORMED BY:[address] [place] [phone] MEDICAL DIRECTORMIKE CABAN M.D.Performed By: #### GLULS ####Point of Care testing,Glucose [Mass/Vol]179 mg/dLNormHCA Florida Central Tampa Emergency Physician GroupComment on above:Result Comment: Random Glucose Reference Range is dependent on time and content of last meal. Glucose of more than 200 mg/dL in a nonstressed, ambulatory subject supports the diagnosis of Diabetes Mellitus.PERFORMED BY:[address] [place], [place] [phone] MEDICAL DIRECTORMIKE CABAN M.D. Performed By: #### GLULS ####Point of Care testing,Glucose [Mass/Vol]98 mg/dL NormalMartin Memorial Health Systems Physician GroupComment on above:Result Comment: Random Glucose Reference Range is dependent on time and content of last meal. Glucose of more than 200 mg/dL in a nonstressed, ambulatory subject supports the diagnosis of Diabetes Mellitus.PERFORMED BY:[address] [place], [place] [phone] MEDICAL DIRECTORMIKE CABAN M.D.Performed By: #### GLULS ####Point of Care testing,Hypochromia LM Ql (Bld)Ordered By: Marge Andino on 08-12-2024 Hypochromia Ql (Bld)Hypochromia [Presence] in Blood by Light microscopyTuscarawas HospitalLymphocytes Auto (Bld) [#/Vol]Ordered By: Marge Andino on 04-53-2537Mgfrcikwyzv (Bld) [#/Vol]Lymphocytes [#/volume] in Blood by Automated count1.00-4.8Tuscarawas HospitalLymphocytes/100 WBC Auto (Bld)Ordered By: Marge Andino on 63-88-3171Rhrrosphvig/100 WBC (Bld) Lymphocytes/100 leukocytes in Blood by Automated count.T[facility]aw[facility] HospitalMagnesiumon 63-57-2415Wfookzojs [Mass/Vol]2.9 mg/dLSignificant change up1.9-2.7The [facility] Physician GroupComment on above:Result Comment: PERFORMED BY:[facility] [place]UKULDarrianMaryCHALINOLOS [place], [place] [phone] MEDICAL DIRECTORIMKE CABAN M.D. Performed By: #### MG ####[facility] callahan [place] [address] USAMagnesium [Mass/volume] in Serum or PlasmaOrdered By: Maurice Francis on 71-24-6095Gwztwewwl [Mass/Vol]Magnesium [Mass/volume] in Serum or PlasmaSignificant change up1.9-2.7FWhite Hospital Comment on above:Delta: 0.5 on 08/11/24-5Microcytes LM Ql (Bld)Ordered By: Marge Andino on 64-84-6792Oiiqtcxzli Ql (Bld)Microcytes [Presence] in Blood by Light microscopyTuscarawas HospitalMonocytes Auto (Bld) [#/Vol] Ordered By: Marge Andino on 98-11-3922Fuabgnzdc (Bld) [#/Vol]Automated blood monocyte count0.0-0.8Tuscarawas HospitalMonocytes/100 WBC Auto (Bld)Ordered By: Marge Andino on 07-73-4774Sdorsfhtv/100 WBC (Bld)Automated monocyte %.Tuscarawas HospitalNeutrophils Auto (Bld) [#/Vol] Ordered By: Marge Andino on 44-85-0983Klfpreejmni (Bld) [#/Vol]Neutrophils [#/volume] in Blood by Automated countHigh1.8-7.7FWhite HospitalNeutrophils/100 WBC Auto (Bld)Ordered By: Marge Andino on 08-12-2024 Neutrophils/100 WBC (Bld)Automated neutrophil %.[facility]as HospitalNo Panel InformationOrdered By: Marge Andino on 88-01-7069AJU Comment See commentTuscarawas HospitalComment on above:There is significant microcytosis which suggests the possibility of iron deficiency. Consider serumferritin and iron studies.See commentTuscarawas HospitalNucleated erythrocytes [Presence] in Blood by Automated countOrdered By: Marge Andino on 14-60-0794Raartkpzg RBC Auto Ql (Bld)Nucleated erythrocytes [Presence] in Blood by Automated count0-0.5FWhite Hospital Ovalocytes [Presence] in Blood by Light microscopyOrdered By: Marge Andino on 63-55-8880Gaftyxbbkh LM Ql (Bld)Ovalocyte detectionTuscarawas HospitalPlatelet adequacy [Presence] in Blood by Light microscopyOrdered By: Marge Andino on 47-84-2166Zkgowazwt LM Ql (Bld)Platelet adequacy [Presence] in Blood by Light microscopyNoUniversity Hospitals Samaritan Medical CenterPlatelet morphology finding [Identifier] in BloodOrdered By: Marge Andino on 94-58-2913Sqbynijs morphology finding Nom (Bld)Platelet morphology finding [Identifier] in BloodNoUniversity Hospitals Samaritan Medical CenterPoikilocytosis [Presence] in Blood by Light microscopyOrdered By: Marge Andino on 08-12-2024 Poikilocytosis LM Ql (Bld)Poikilocytosis [Presence] in Blood by Light microscopy [facility], Beachwoodcan and CBCon 77-71-4482Vgxeojraka Comments NormalThe [facility] Physician GroupComment on above:Result Comment: There is significant microcytosis which suggests the possibility of iron deficiency. Consider serum ferritin and iron studies.PERFORMED BY:[address] [place], [place] [phone] MEDICAL DIRECTORMIKE CABAN M.D.Performed By: #### SCAN CBC, ALB, BMP ####[facility] [address] [place] [address] [place] Anisocytosis Ql (Bld)MarkedNormalThe [facility] Physician GroupComment on above: Performed By: #### SCAN CBC, ALB, BMP ####[facility] [address] [place] [address] USABasophils (Bld) [#/Vol]0.1 10*3/uLNormal 0.0-0.2The [facility] Physician GroupComment on above:Performed By: #### SCAN CBC, ALB, BMP ####[place] [address] USABasophils/100 WBC (Bld)0.8 %Normal.The [facility] Physician GroupComment on above:Performed By: #### SCAN CBC, ALB, BMP ####[place] [address] USAEosinophils (Bld) [#/Vol]0.3 10*3/uL Normal0.0-0.45The [facility] Physician GroupComment on above:Performed By: #### SCAN CBC, ALB, BMP ####[place] [address] USAEosinophils/100 WBC (Bld)3.1 %Normal.The [facility] Comment on above:Performed By: #### SCAN CBC, ALB, BMP ####[place] [address] USAErythrocyte distribution width (RBC) [Ratio]20.0 %High12.0-14.8The [facility] Physician GroupComment on above: Performed By: #### SCAN CBC, ALB, BMP ####[place] [address] USAHematocrit (Bld) [Volume fraction]29.5 %Low 38.8-50.0The [facility] Physician GroupComment on above:Performed By: #### SCAN CBC, ALB, BMP ####[place] [address] USAHemoglobin (Bld) [Mass/Vol]9.5 g/dLLow13.0-17.0The [facility] Physician GroupComment on above:Performed By: #### SCAN CBC, ALB, BMP ####[place] [address] USAHypochromasiaSlight NormalThe [facility] Physician GroupComment on above:Performed By: #### SCAN CBC, ALB, BMP ####[place] [address] USALymphocytes (Bld) [#/Vol]1.0 10*3/uLNormal1.00-4.8The [facility] Physician GroupComment on above:Performed By: #### SCAN CBC, ALB, BMP ####[place] [id number] USALymphocytes/100 WBC (Bld)9.6 %Normal.The [facility] Physician GroupComment on above:Performed By: #### SCAN CBC, ALB, BMP ####[place] [id number] [facility] (RBC) [Entitic mass]21.9 pgLow27.5-35.2The [facility] Physician GroupComment on above:Performed By: #### SCAN CBC, ALB, BMP ####[place] [id number] [facility] (RBC) [Entitic vol]68.2 fLLow83.5-101The [facility] Physician GroupComment on above:Performed By: #### SCAN CBC, ALB, BMP ####[place] [id number] USAMean Corpuscular HGB Conc32.1 g/dLLow 32.5-35.6The [facility] Physician GroupComment on above:Performed By: #### SCAN CBC, ALB, BMP ####[place] [phone] USAMicrocytosisModerateNormalThe [facility] Physician GroupComment on above:Performed By: #### SCAN CBC, ALB, BMP ####[place] [phone] USAMonocytes (Bld) [#/Vol]0.8 10*3/uL Normal0.0-0.8The [facility] Physician GroupComment on above:Performed By: #### SCAN CBC, ALB, BMP ####[place] [address] USAMonocytes/100 WBC (Bld)8.3 %Normal.The [facility] Comment on above:Performed By: #### SCAN CBC, ALB, BMP ####[place] [address] [place] [address] USANeutrophils (Bld) [#/Vol]8.0 10*3/uLHigh1.8-7.7The [facility] Physician GroupComment on above:Performed By: #### SCAN CBC, ALB, BMP ####[address] [address] USANeutrophils/100 WBC (Bld)78.2 %Normal.The [facility] Physician GroupComment on above:Performed By: #### SCAN CBC, ALB, BMP ####[address] [address] USANRBC% 0.1 /100{WBC}Normal0-0.5The [facility] Physician GroupComment on above:Performed By: #### SCAN CBC, ALB, BMP ####[address] [address] USAOvalocytesSlightNormHCA Florida [facility] Physician [facility] Comment on above:Performed By: #### SCAN CBC, ALB, BMP ####[address] [address] USAPlatelet EstimateNormalNormal NormalThe [facility] Physician GroupComment on above:Performed By: #### SCAN CBC, ALB, BMP ####[address] [address] USAPlatelet mean volume (Bld) [Entitic vol]9.4 fLNormal6.6-10.1The [facility] Physician GroupComment on above:Performed By: #### SCAN CBC, ALB, BMP ####[address] [address] [place] Platelet MorphologyNormalNormalNormHCA Florida Central Tampa Emergency Physician GroupComment on above:Performed By: #### SCAN CBC, ALB, BMP ####[address] [address] USAPlatelets (Bld) [#/Vol]162 10*3/uL Dfnzcv266-248Dlp [facility] Physician GroupComment on above:Performed By: #### SCAN CBC, ALB, BMP ####[facility] [address] [place] [address] USAPoikilocytosisSlightNormalThe [facility] Physician GroupComment on above:Performed By: #### SCAN CBC, ALB, BMP ####[facility] [address] [place] [address] USARBC (Bld) [#/Vol]4.32 10*6/uLNormal 3.90-5.60The [facility] Physician GroupComment on above:Performed By: #### SCAN CBC, ALB, BMP ####[facility] [place] [address] USAWBC (Bld) [#/Vol]10.2 10*3/uLNormal4.1-10.5The [facility] Physician GroupComment on above:Performed By: #### SCAN CBC, ALB, BMP ####[place] [address] [place] [address] USAWBC Auto (Bld) [#/Vol]Ordered By: Marge Andino on 47-32-3301TFI (Bld) [#/Vol]Leukocytes [#/volume] in Blood by Automated count4.1-10.5FWhite Hospital Alanine aminotransferase [Enzymatic activity/volume] in Serum or PlasmaOrdered By: Francisco Duncan on 53-52-0794ZMR [Catalytic activity/Vol]Alanine aminotransferase [Enzymatic activity/volume] in Serum or Plasma7-52Tuscarawas HospitalAlbumin [Mass/volume] in Serum or Plasma by Bromocresol green (BCG) dye binding methoOrdered By: Francisco Duncan on 26-28-1363Phllomb BCG dye [Mass/Vol]Albumin [Mass/volume] in Serum or Plasma by Bromocresol green (BCG) dye binding metho3.5-5.7FWhite HospitalAlkaline phosphatase [Enzymatic activity/volume] in Serum or PlasmaOrdered By: Francisco Duncan on 96-13-2571GUP [Catalytic activity/Vol]Alkaline phosphatase [Enzymatic activity/volume] in Serum or PqiapeCgvt38-498HosappkdnTuscarawas Hospital Anisocytosis LM Ql (Bld)Ordered By: Francisco Duncan on 70-97-0595Ooujfxtkvgkj Ql (Bld)Anisocytosis [Presence] in Blood by Light microscopyTuscarawas HospitalAppearance of UrineOrdered By: Francisco Duncan on 08-11-2024 Appearance (U)Urine appearanceCleOhio State East HospitalAspartate aminotransferase [Enzymatic activity/volume] in Serum or PlasmaOrdered By: Francisco Duncan on 93-28-7204SLB [Catalytic activity/Vol]Aspartate aminotransferase [Enzymatic activity/volume] in Serum or JqbbpdCha65-26WarewmegkTuscarawas HospitalBand form neutrophils/100 WBC Manual cnt (Bld)Ordered By: Francisco Duncan on 34-39-0603Bfiv form neutrophils/100 WBC (Bld)Peripheral white blood cell differential % bands, microscopic exam0-5FWhite HospitalBasophils Auto (Bld) [#/Vol]Ordered By: Francisco Duncan on 08-11-2024 Basophils (Bld) [#/Vol]Automated basophil countTuscarawas Hospital Basophils/100 WBC Auto (Bld)Ordered By: Francisco Duncan on 57-14-2063Raaeoxcuq/100 WBC (Bld)Automated basophil %T[facility]carawas HospitalBasophils/100 WBC Manual cnt (Bld)Ordered By: Francisco Duncan on 17-52-7057Nruwehxjk/100 WBC (Bld) Basophils/100 leukocytes in Blood by Manual count02FWhite HospitalBilirubin Test strip Ql (U)Ordered By: Francisco Duncan on 08-11-2024 Bilirubin Ql (U)Bilirubin.total [Presence] in Urine by Test stripNegative Tuscarawas HospitalBilirubin.total [Mass/volume] in Serum or PlasmaOrdered By: Francisco Duncan on 15-91-7718Bbjhfuhht [Mass/Vol]Bilirubin.total [Mass/volume] in Serum or Plasma0.3-1.0Tuscarawas HospitalBurr cells [Presence] in Blood by Light microscopyOrdered By: Francisco Duncan on 98-46-9050Dzdm cells LM Ql (Bld)Leigh Ann cells [Presence] in Blood by Light microscopyTuscarawas HospitalCT angio neckon 89-46-7321WD angio neckNormHCA Florida [facility] Emergency Physician GroupCalcium [Mass/volume] in Serum or Plasma Ordered By: Francisco Duncan on 20-25-3184Kiduudi [Mass/Vol]Calcium [Mass/volume] in Serum or PlasmaCritically low8.6-10.3FWhite HospitalComment on above:Critical Result Called to and read back by: MONCHO FINK at: 08/11/2024 04:56:06 by:DHCarbon dioxide, total [Moles/volume] in Serum or Plasma Ordered By: Francisco Duncan on 86-85-0132UT0 [Moles/Vol]Carbon dioxide, total [Moles/volume] in Serum or Jfzbgq50.0-31.0[facility] Hospital Chloride [Moles/volume] in Serum or PlasmaOrdered By: Francisco Duncan on 91-09-3170Ogtwsfpm [Moles/Vol]Chloride [Moles/volume] in Serum or Sgbnbb28-162 Tuscarawas HospitalColor Auto (U)Ordered By: Francisco Duncan on 88-83-9206Pchsz (U)Color of Urine by AutoYellowTuscarawas Hospital Comprehensive Metabolic Panelon 97-13-9322Saqstvh [Mass/Vol]4.2 g/dLNormal 3.5-5.7The [facility] Physician GroupComment on above:Performed By: #### DIFF CBC, CK, PT, PTT, CMP, HS TROP ####[facility] [place] [address] USAAlbumin/Globulin [Mass ratio]1.6 {ratio}NormalThe [facility] Troy Community HospitalComment on above:Performed By: #### DIFF CBC, CK, PT, PTT, CMP, HS TROP ####[facility] [place] [address] USAALP [Catalytic activity/Vol]105 U/BQbum74-853Fqy [facility] HospitalComment on above:Performed By: #### DIFF CBC, CK, PT, PTT, CMP, HS TROP ####[facility] [place] [address] USAALT [Catalytic activity/Vol]11 U/LNormal7-52The [facility] HospitalComment on above:Performed By: #### DIFF CBC, CK, PT, PTT, CMP, HS TROP ####[facility] [place] [address] USAAnion gap [Moles/Vol] 16.0 mmol/LHigh6.0-15.0The [facility] Physician GroupComment on above:Performed By: #### DIFF CBC, CK, PT, PTT, CMP, HS TROP ####[place] [address] USAAST [Catalytic activity/Vol]12 U/LLow 13-39The [facility] Physician GroupComment on above:Performed By: #### DIFF CBC, CK, PT, PTT, CMP, HS TROP ####[place] [address] USABilirubin [Mass/Vol]0.4 mg/dLNormal0.3-1.0The [facility] Physician GroupComment on above:Performed By: #### DIFF CBC, CK, PT, PTT, CMP, HS TROP ####[place] [address] USACalcium [Mass/Vol]6.1 mg/dLOff scale low8.6-10.3The [facility] Physician GroupComment on above:Result Comment: Critical Result Called to and read back by: MONCHO FINK at: 08/11/2024 04:56:06by:DHPerformed By: #### DIFF CBC, CK, PT, PTT, CMP, HS TROP ####[place] [address] USAChloride [Moles/Vol]100 mmol/SReztoj95-764Ymk [facility] Physician GroupComment on above:Performed By: #### DIFF CBC, CK, PT, PTT, CMP, HS TROP ####[place] [address] USACO2 [Moles/Vol]27.1 mmol/QFvfrrb29.0-31.0The [facility] Comment on above:Performed By: #### DIFF CBC, CK, PT, PTT, CMP, HS TROP ####[place] [address] [place] Creatinine [Mass/Vol]2.62 mg/dLHigh0.70-1.30The [facility] Physician GroupComment on above:Performed By: #### DIFF CBC, CK, PT, PTT, CMP, HS TROP ####[place] [address] [place] [address] USACreatinine Clr Calc Pjoftjld93.32NoNovant Health Pender Medical Center Physician GroupComment on above:Result Comment: PERFORMED BY:[place] [address] [place], [place] [phone] MEDICAL DIRECTORMIKE CABAN M.D. Performed By: #### DIFF CBC, CK, PT, PTT, CMP, HS TROP ####[place] [address] [place] [address] USAEstimated GFR27.293 mL/Min NormalThe [facility] Physician GroupComment on above:Performed By: #### DIFF CBC, CK, PT, PTT, CMP, HS TROP ####[place] [address] [place] [address] USAGlobulin (S) [Mass/Vol]2.7 g/dLNoNovant Health Pender Medical Center Physician GroupComment on above:Performed By: #### DIFF CBC, CK, PT, PTT, CMP, HS TROP ####[place] [address] [facility] Glucose [Mass/Vol]102 mg/uWMaei62-417Uoi [facility] Physician GroupComment on above:Result Comment: Random Glucose Reference Range is dependent on time and content of last meal. Glucose of more than 200 mg/dL in a nonstressed, ambulatory subject supports the diagnosis of Diabetes Mellitus. ADA recommended reference rangePerformed By: #### DIFF CBC, CK, PT, PTT, CMP, HS TROP ####[address] [address] [facility] Potassium [Moles/Vol]3.1 mmol/LLow3.5-5.1The [facility] Physician GroupComment on above:Performed By: #### DIFF CBC, CK, PT, PTT, CMP, HS TROP ####[address] [address] USAProtein [Mass/Vol]6.9 g/dLNormal6.4-8.9The [facility] Physician GroupComment on above:Performed By: #### DIFF CBC, CK, PT, PTT, CMP, HS TROP ####[place] [address] USASodium [Moles/Vol]140 mmol/KDleynt352-376FxeEast Mississippi State HospitalComment on above:Performed By: #### DIFF CBC, CK, PT, PTT, CMP, HS TROP ####[place] [address] USAUrea nitrogen [Mass/Vol]26 mg/dLHigh7-25The [facility] Physician [facility] Comment on above:Performed By: #### DIFF CBC, CK, PT, PTT, CMP, HS TROP ####[place] [address] USACreatine Kinaseon 56-60-0126FA [Catalytic activity/Vol]305 U/ZMsez80-465K[facility] [place] Physician [facility] HospitalComment on above:Performed By: #### DIFF CBC, CK, PT, PTT, CMP, HS TROP ####[address] Creatine kinase [Enzymatic activity/volume] in Serum or PlasmaOrdered By: Francisco Duncan on 48-73-0277DO [Catalytic activity/Vol]Creatine kinase [Enzymatic activity/volume] in Serum or KqqbjfTglg42-239ZwlibeffkTuscarawas Hospital Creatinine [Mass/volume] in Serum or PlasmaOrdered By: Francisco Duncan on 76-14-7049Whcdevdcwe [Mass/Vol]Creatinine [Mass/volume] in Serum or PlasmaHigh 0.70-1.30T[facility]carawas HospitalDiff and CBCon 24-60-4966Hefxjdteherd Ql (Bld)MarkedNoMercy Health St. Charles HospitalComment on above:Performed By: #### DIFF CBC, CK, PT, PTT, CMP, HS TROP ####[place] [address] USABand form neutrophils/100 WBC (Bld)1 %Normal0-5 The [facility] Physician [facility] HospitalComment on above:Performed By: #### DIFF CBC, CK, PT, PTT, CMP, HS TROP ####[place] [address] USABasophils/100 WBC (Bld)1 %Normal0-2The [facility] Physician GroupComment on above:Performed By: #### DIFF CBC, CK, PT, PTT, CMP, HS TROP ####[place] [address] [place] Crenated RBCSlightNormalThe [facility] Physician GroupComment on above:Performed By: #### DIFF CBC, CK, PT, PTT, CMP, HS TROP ####[place] [address] USAEosinophils/100 WBC (Bld)4 %High1-3The [facility] Physician GroupComment on above:Performed By: #### DIFF CBC, CK, PT, PTT, CMP, HS TROP ####[place] [address] USAErythrocyte distribution width (RBC) [Ratio]20.1 %High12.0-14.8The [facility] Physician GroupComment on above:Performed By: #### DIFF CBC, CK, PT, PTT, CMP, HS TROP ####[place] [address] USAHematocrit (Bld) [Volume fraction]35.8 %Low38.8-50.0The [facility] Physician GroupComment on above:Performed By: #### DIFF CBC, CK, PT, PTT, CMP, HS TROP ####[place] [address] [facility] Hemoglobin (Bld) [Mass/Vol]11.6 g/dLLow13.0-17.0The [facility] Comment on above:Performed By: #### DIFF CBC, CK, PT, PTT, CMP, HS TROP ####[place] [address] [place] Lymphocytes/100 WBC (Bld)30 %Vozguq94-71Jvc [facility] Physician GroupComment on above:Performed By: #### DIFF CBC, CK, PT, PTT, CMP, HS TROP ####[place] [address] [facility] (RBC) [Entitic mass]21.8 pgLow27.5-35.2The [facility] Physician GroupComment on above:Performed By: #### DIFF CBC, CK, PT, PTT, CMP, HS TROP ####[place] [address] [facility] (RBC) [Entitic vol]67.4 fLLow 83.5-101The [facility] Physician GroupComment on above:Performed By: #### DIFF CBC, CK, PT, PTT, CMP, HS TROP ####[address] Corpuscular HGB Conc32.3 g/dLLow32.5-35.6The [facility] Physician GroupComment on above:Performed By: #### DIFF CBC, CK, PT, PTT, CMP, HS TROP ####[place] [address] USAMicrocytosisModerateHCA Florida [facility] Physician [facility] HospitalComment on above:Performed By: #### DIFF CBC, CK, PT, PTT, CMP, HS TROP ####[place] [address] USAMonocytes/100 WBC (Bld)17.90 %Normal0.00-20.00The [facility] Physician GroupComment on above: Performed By: #### DIFF CBC, CK, PT, PTT, CMP, HS TROP ####[place] [address] USAMonocytes/100 WBC (Bld)5 % Normal2-11The [facility] Physician GroupComment on above:Performed By: #### DIFF CBC, CK, PT, PTT, CMP, HS TROP ####[place] [address] USAOvalocytesSlightHCA Florida Ovied[facility] Physician Group Comment on above:Performed By: #### DIFF CBC, CK, PT, PTT, CMP, HS TROP ####[address] [address] USAPlatelet EstimateNormalNormalHCA Florida Oviedo [facility] Center Physician GroupComment on above: Performed By: #### DIFF CBC, CK, PT, PTT, CMP, HS TROP ####[address] [address] USAPlatelet mean volume (Bld) [Entitic vol]9.1 fLNormal6.6-10.1The [facility] Physician GroupComment on above: Result Comment: PERFORMED BY:[place] [address] [place], [place] [phone] MEDICAL DIRECTORMIKE LIU M.D.Performed By: #### DIFF CBC, CK, PT, PTT, CMP, HS TROP ####[address] [address] USAPlatelet MorphologyNormalNormalHCA Florida [facility] Physician GroupComment on above:Result Comment: PERFORMED BY:[address] LINMaryCHALINO, [place] [phone] MEDICAL DIRECTORMIKE CABAN M.D. Performed By: #### DIFF CBC, CK, PT, PTT, CMP, HS TROP ####[address] [address] USAPlatelets (Bld) [#/Vol]209 10*3/vNTanvzj205-263Fsp [facility] Physician GroupComment on above:Performed By: #### DIFF CBC, CK, PT, PTT, CMP, HS TROP ####[address] [address] USAPoikilocytosisSFormerly [facility] Physician GroupComment on above:Performed By: #### DIFF CBC, CK, PT, PTT, CMP, HS TROP ####[address] [address] [place] PolychromasiaSFormerly [facility] Physician GroupComment on above:Performed By: #### DIFF CBC, CK, PT, PTT, CMP, HS TROP ####[place] [address] [place] [id number] USARBC (Bld) [#/Vol]5.32 10*6/uLNormal 3.90-5.60The [facility] Physician GroupComment on above:Performed By: #### DIFF CBC, CK, PT, PTT, CMP, HS TROP ####[place] [address] USASegmented neutrophils/100 WBC (Bld)60 %Qppdlz69-58 The [facility] Physician GroupComment on above:Performed By: #### DIFF CBC, CK, PT, PTT, CMP, HS TROP ####[place] [id number] USAWBC (Bld) [#/Vol]10.7 10*3/uLHigh4.1-10.5The [facility] Physician GroupComment on above:Performed By: #### DIFF CBC, CK, PT, PTT, CMP, HS TROP ####[address] [address] USAECG 12 lead ECGon 24-42-5393ZNO 12 lead ECGNormalThe [facility] Physician [facility] HospitalEosinophils Auto (Bld) [#/Vol]Ordered By: Francisco Duncan on 40-81-2075Fcuiwcjlmvz (Bld) [#/Vol]Automated eosinophil countTuscarawas HospitalEosinophils/100 WBC Auto (Bld)Ordered By: Francisco Duncan on 75-57-7340Tnurcsytrnr/100 WBC (Bld)Automated eosinophil %Tuscarawas HospitalEosinophils/100 WBC Manual cnt (Bld)Ordered By: Francisco Duncan on 74-32-7802Bzegvmfbrss/100 WBC (Bld)Eosinophils/100 leukocytes in Blood by Manual countHigh1-3FWhite HospitalErythrocyte distribution width Auto (RBC) [Ratio]Ordered By: Francisco Duncan on 38-38-0783Fyinufmlcub distribution width (RBC) [Ratio]Erythrocyte distribution width [Ratio] by Automated tutjhUgza84.0-14.8Tuscarawas HospitalErythrocyte morphology finding [Identifier] in BloodOrdered By: Francisco Duncan on 08-11-2024 RBC morphology finding Nom (Bld)RBC morphologyTuscarawas Hospital Ferritinon 87-25-0523Wplpxyxk [Mass/Vol]5.3 ng/mLLow23.9-336.2The [facility] Physician GroupComment on above:Order Comment: Comment addResult Comment: PERFORMED BY:[place] [address] [place] [place] [phone] MEDICAL DIRECTORMIKE CABAN M.D. Performed By: #### FE and TIBC, LILA ####[facility] [address] [place], [place] USAFerritin [Mass/volume] in Serum or PlasmaOrdered By: Marge Andino on 24-99-6463Ducrommv [Mass/Vol]Ferritin [Mass/volume] in Serum or PdthqwLwi18.9-336.2FWhite HospitalFolate [Mass/volume] in Serum or PlasmaOrdered By: Marge Andino on 19-22-3677Kelpuf [Mass/Vol]Folate [Mass/volume] in Serum or Plasma>5.9Tuscarawas HospitalComment on above:Folate reference range: >5.9 ng/mlThe WHO technical consultation on folate and vitamin o04maffkglquwyi has determined that folate concentrations lessthan 4 ng/ml are considered deficient.Globulin Calc (S) [Mass/Vol]Ordered By: Francisco Duncan on 67-57-6564Goqotwvx (S) [Mass/Vol]Serum globulin measurement by calculation (mass/volume)Tuscarawas HospitalGlucose Poct Glucometerson 72-15-4861Nfqtjsz2Naf7: Cleaned MeterNormHCA [facility] Emergency Physician GroupComment on above:Result Comment: PERFORMED BY:[place] [address] [place], [place] [phone] MEDICAL FRANSISCO CABAN M.D.Performed By: #### GLULS ####Point of Care testing,Glucose [Mass/Vol]241 mg/dLNoNovant Health [facility]ender Medical Center Physician GroupComment on above:Result Comment: Random Glucose Reference Range is dependent on time and content of last meal. Glucose of more than 200 mg/dL in a nonstressed, ambulatory subject supports the diagnosis of Diabetes Mellitus.Performed By: #### GLULS ####Point of Care testing,Glucose [Mass/Vol]244 mg/dLHCA Florida Oviedo [facility] Center Physician GroupComment on above:Result Comment: Random Glucose Reference Range is dependent on time and content of last meal. Glucose of more than 200 mg/dL in a nonstressed, ambulatory subject supports the diagnosis of Diabetes Mellitus.PERFORMED BY:[place] [address] [place], [place] [phone] MEDICAL DIRECTORMIKE LIU M.D.Performed By: #### GLULS ####Point of Care testing,Gwkoefd8Ziy6: Cleaned MeterNoNovant Health Pender Medical Center Physician GroupComment on above:Result Comment: PERFORMED BY:[place] [address] [place], [place] [phone] MEDICAL DIRECTORMIKE CABAN M.D. Performed By: #### GLULS ####Point of Care testing,Glucose [Mass/Vol]89 mg/dL NormalMartin Memorial Health Systems Physician GroupComment on above:Result Comment: Random Glucose Reference Range is dependent on time and content of last meal. Glucose of more than 200 mg/dL in a nonstressed, ambulatory subject supports the diagnosis of Diabetes Mellitus.Performed By: #### GLULS ####Point of Care testing,Glucose [Mass/Vol]176 mg/dLHCA Florida Oviedo Medical Center Physician GroupComment on above:Result Comment: Random Glucose Reference Range is dependent on time and content of last meal. Glucose of more than 200 mg/dL in a nonstressed, ambulatory subject supports the diagnosis of Diabetes Mellitus.PERFORMED BY:[place] [address] [place], [place] [phone] MEDICAL DIRECTORMIKE CABAN M.D. Performed By: #### GLULS ####Point of Care testing,Glucose [Mass/volume] in Serum or PlasmaOrdered By: Francisco Duncan on 89-72-6422Rlutsen [Mass/Vol]Glucose [Mass/volume] in Serum or SxmbslYchl97-182MevvulqppTuscarawas Hospital Comment on above:ADA recommended reference rangeRandom Glucose Reference Range is dependent on time and content of last meal. Glucose of more than 200 mg/dL in a nonstressed, ambulatory subject supports the diagnosisof Diabetes Mellitus. Glucose [Mass/volume] in Urine by Test stripOrdered By: Francisco Duncan on 84-61-9589Puawmny Test strip (U) [Mass/Vol]Glucose [Mass/volume] in Urine by Test stripHighNormalTuscarawas HospitalHematocrit Auto (Bld) [Volume fraction]Ordered By: Francisco Duncan on 26-53-0759Oaushagcyj (Bld) [Volume fraction]Hematocrit [Volume Fraction] of Blood by Automated uocnnVop68.8-50.0 [facility] HospitalHemoglobin Test strip Ql (U)Ordered By: Francisco Duncan on 04-32-5779Qnxhiwwfpn Ql (U)Hemoglobin [Presence] in Urine by Test stripNegativeTuscarawas HospitalHemoglobin [Mass/volume] in Blood Ordered By: Francisco Duncan on 09-47-6972Nwehyhdxkl (Bld) [Mass/Vol]Hemoglobin [Mass/volume] in YwlczIkg20.0-17.0Tuscarawas HospitalINR in Platelet poor plasma by Coagulation assayOrdered By: Francisco Duncan on 08-11-2024 INR Coag (PPP) [Relative time]INR in Platelet poor plasma by Coagulation assay Tuscarawas HospitalComment on above:INR Therapeutic Range A) Pre- and Peroperative OAT started two weeks before surgery. NOT HIP SURGERY: 1.5 - 2.5 HIP SURGERY: 2 - 3B) Primary and secondary prevention of venous THROMBOSIS: 2 - 3C) Active venous thrombosis, pulmonary embolismand prevention of recurrent venous thrombosis: 2 - 3D) Prevention of arterial thromboembolismincluding patients with mechanical heart valves: 3 - 4.5Iron [Mass/volume] in Serum or PlasmaOrdered By: Marge Andino on 87-88-5479Xlhh [Mass/Vol]Iron [Mass/volume] in Serum or OlqqwbDaw69-880BgexjkllnTuscarawas HospitalIron and TIBC Profileon 08-11-2024% Iron Saturation7.0 %Sgv40-74Kcs [facility] Comment on above:Order Comment: Comment addPerformed By: #### FE and TIBC, LILA ####[address] USAIron [Mass/Vol]29 ug/lZCno12-535Hyk [facility] Physician GroupComment on above:Order Comment: Comment addPerformed By: #### FE and TIBC, LILA ####[address] USATotal Iron Binding Tyhovvza080 ug/kJDjebbh165-359Dto [facility] Physician [facility] HospitalComment on above:Order Comment: Comment addPerformed By: #### FE and TIBC, LILA ####[address] [address] USATransferrin [Mass/Vol]296 mg/dLNormal 203-362The [facility]in Hospital Physician [facility]ippah County HospitalComment on above:Order Comment: Comment add Performed By: #### FE and TIBC, LILA ####[address] [id number] USAKetones Test strip Ql (U)Ordered By: Francisco Duncan on 77-06-2086Cwkdutp Ql (U)Ketones [Presence] in Urine by Test stripNegative [facility] HospitalLeukocyte esterase [Presence] in Urine by Test stripOrdered By: Francisco Duncan on 98-36-4582Rcupdkjrj esterase Test strip Ql (U) Leukocyte esterase [Presence] in Urine by Test stripNegativeTuscarawas HospitalLeukocytes [#/volume] corrected for nucleated erythrocytes in Blood by Automated counOrdered By: Francisco Duncan on 81-95-5821XLE corrected for nucl RBC Auto (Bld) [#/Vol]Leukocytes [#/volume] corrected for nucleated erythrocytes in Blood by Automated counHigh4.1-10.5FWhite HospitalLymphocytes Auto (Bld) [#/Vol]Ordered By: Fracnisco Duncan on 08-11-2024 Lymphocytes (Bld) [#/Vol]Lymphocytes [#/volume] in Blood by Automated count [facility] HospitalLymphocytes/100 WBC Auto (Bld)Ordered By: Francisco Duncan on 39-63-2896Kwfyqhibozf/100 WBC (Bld)Lymphocytes/100 leukocytes in Blood by Automated countTuscarawas HospitalLymphocytes/100 WBC Manual cnt (Bld)Ordered By: Francisco Duncan on 48-83-0841Fqixwmnizdi/100 WBC (Bld) Lymphocytes/100 leukocytes in Blood by Manual -87LfownyqkaGeorgetown Behavioral HospitalH Auto (RBC) [Entitic mass]Ordered By: Francisco Duncna on 95-05-3317KCZ (RBC) [Entitic mass]MCH [Entitic mass] by Automated countLow 27.5-35.2FSt. Charles HospitalHC Auto (RBC) [Mass/Vol]Ordered By: Francisco Duncan on 64-80-5154QXVB (RBC) [Mass/Vol]MCHC [Mass/volume] by Automated xtjgeNyf11.5-35.6FSt. Charles HospitalV Auto (RBC) [Entitic vol] Ordered By: Francisco Duncan on 56-48-3313VUI (RBC) [Entitic vol]MCV [Entitic volume] by Automated bdsydChc47.5-101T[facility]carawas HospitalMagnesium on 81-80-2992Aaleudovd [Mass/Vol]0.5 mg/dLOff scale low1.9-2.7The [facility] Physician GroupComment on above:Order Comment: Comment addResult Comment: Critical Result S_MG: Called to and read back by: MONCHO FINK at: 08/11/2024 06:13:29 by:RANDOLPHPerformed By: #### TSH3, MG, ZCGL33CMW, SWZM35TH ####[facility] [address] [place] [address] USAMagnesium [Mass/volume] in Serum or PlasmaOrdered By: Marge Andino on 08-11-2024 Magnesium [Mass/Vol]Magnesium [Mass/volume] in Serum or PlasmaCritically low 1.9-2.7FWhite HospitalComment on above:Critical Result S_MG: Called to and read back by: MONCHO FINK at: 08/11/2024 06:13:29 by:RANDOLPH Microcytes LM Ql (Bld)Ordered By: Francisco Duncan on 37-03-4525Zagfpjypeh Ql (Bld) Microcytes [Presence] in Blood by Light microscopyTuscarawas HospitalMonocyte distribution width [Entitic volume] in Blood by AutomatedOrdered By: Francisco Duncan on 68-51-2679Rvdisvvz distribution width Auto (Bld) [Entitic vol]Monocyte distribution width [Entitic volume] in Blood by Automated0.00-20.00 [facility] HospitalMonocytes Auto (Bld) [#/Vol]Ordered By: Francisoc Duncan on 38-05-7928Eurltaehb (Bld) [#/Vol]Automated blood monocyte count [facility] HospitalMonocytes/100 WBC Auto (Bld)Ordered By: Francisco Duncan on 61-70-2577Bcpmyxbyr/100 WBC (Bld)Automated monocyte %[facility] HospitalMonocytes/100 WBC Manual cnt (Bld)Ordered By: Francisco Duncan on 93-93-3663Wtkkvwpvs/100 WBC (Bld)Monocytes/100 leukocytes in Blood by Manual count2-11Tuscarawas HospitalNeutrophils Auto (Bld) [#/Vol] Ordered By: Francisco Duncan on 98-45-5295Jlxjmeqqulf (Bld) [#/Vol]Neutrophils [#/volume] in Blood by Automated countTuscarawas Hospital Neutrophils/100 WBC Auto (Bld)Ordered By: Francisco Duncan on 08-11-2024 Neutrophils/100 WBC (Bld)Automated neutrophil %[facility] Nitrite Test strip Ql (U)Ordered By: Francisco Duncan on 25-81-8810Wjfdbsv Ql (U) Nitrite [Presence] in Urine by Test stripNegativeTuscarawas HospitalNo Panel InformationOrdered By: Kevon Viera on 28-05-8923Xgszsfe Glucose CommentGlu2: cleaned [facility] HospitalGlu2: cleaned [facility] HospitalNo Panel InformationOrdered By: Francisco Duncan on 47-84-9686Hlbszorbi GFR (CKD-EPI)27.293 mL/MinTuscarawas HospitalPharmacy Creatinine Clearance (Chem33.32T[facility]carawas HospitalNucleated erythrocytes [Presence] in Blood by Automated countOrdered By: Francisco Duncan on 83-79-2821Uzvizwkxe RBC Auto Ql (Bld)Nucleated erythrocytes [Presence] in Blood by Automated countTuscarawas Hospital Ovalocytes [Presence] in Blood by Light microscopyOrdered By: Francisco Duncan on 00-30-0832Fxdbfaagvr LM Ql (Bld)Ovalocyte detectionTuscarawas HospitalParathyrin.intact [Mass/volume] in Serum or PlasmaOrdered By: Francisco Duncan on 56-35-1639Ytegogsify.intact [Mass/Vol]Parathyrin.intact [Mass/volume] in Serum or Ziaguc20-28MesjkkxpkTuscarawas HospitalParathyroid Hormone [place] 59-70-3725Caklnxllpsn Hormone Bgdojo31.3 pg/uIIeyigi05-06Syd [facility] Physician GroupComment on above:Result Comment: PERFORMED BY:[address] [place], [place] [phone] MEDICAL DIRECTORMIKE CABAN M.D.Performed By: #### PTH, PHOS ####[address] [place] [address] USAPartial Thromboplastin Timeon 44-42-8780sJEU Coag (Bld) [Time]30.9 kPnpnou91.1-36.5The [facility] Physician GroupComment on above:Result Comment: A hematocrit value greater than 55% may lead to inaccurate results in coagulation testing. Patients having hematocrit values >55% require a special collection tube for coagulation studies. Please contact the laboratory at [phone] for redraw instructions.PERFORMED BY:[address] [place], [place] [phone] MEDICAL DIRECTORMIKE LIU M.D.Performed By: #### DIFF CBC, CK, PT, PTT, CMP, HS TROP ####[address] [address] [facility] Phosphate [Mass/volume] in Serum or PlasmaOrdered By: Francisco Duncan on 50-14-8211Mcealjask [Mass/Vol]Phosphate [Mass/volume] in Serum or PlasmaHigh 2.5-4.5FWhite HospitalPhosphoruson 01-83-1961Indikbibc [Mass/Vol]4.8 mg/dLHigh2.5-4.5The [facility] Physician GroupComment on above: Result Comment: PERFORMED BY:[facility] [place], [place] [phone] MEDICAL DIRECTORMIKE LIU M.D.Performed By: #### PTH, PHOS ####[facility] [address] [place] [address] USAPlatelet adequacy [Presence] in Blood by Light microscopyOrdered By: Francisco Duncan on 17-00-0072Hbwjkzgmh LM Ql (Bld) Platelet adequacy [Presence] in Blood by Light microscopyFairfield Medical CenterPlatelet mean volume Auto (Bld) [Entitic vol]Ordered By: Francisco Duncan on 43-02-2755Mnxbyqdx mean volume (Bld) [Entitic vol]Platelet mean volume [Entitic volume] in Blood by Automated count6.6-10.1FWhite HospitalPlatelet morphology finding [Identifier] in BloodOrdered By: Francisco Duncan on 21-03-8650Uzjrdofl morphology finding Nom (Bld)Platelet morphology finding [Identifier] in BloodNoUniversity Hospitals Samaritan Medical Center Platelets Auto (Bld) [#/Vol]Ordered By: Francisco Duncan on 27-94-1923Exhgchcmt (Bld) [#/Vol]Platelets [#/volume] in Blood by Automated gfppa746-375AyrjensifTuscarawas HospitalPoikilocytosis [Presence] in Blood by Light microscopy Ordered By: Francisco Duncan on 25-87-3104Qhkejtrfexbgjz LM Ql (Bld)Poikilocytosis [Presence] in Blood by Light microscopyTuscarawas Hospital Polychromasia [Presence] in Blood by Light microscopyOrdered By: Francisco Duncan on 78-28-3231Enobimtfzzonp LM Ql (Bld)Polychromasia [Presence] in Blood by Light microscopyTuscarawas HospitalPotassium [Moles/volume] in Serum or PlasmaOrdered By: Francisco Duncan on 99-25-6673Gkvuzwnpf [Moles/Vol]Potassium [Moles/volume] in Serum or PlasmaLow3.5-5.1FWhite Hospital Protein Test strip (U) [Mass/Vol]Ordered By: Francisco Duncan on 98-33-3582Gzpvoku (U) [Mass/Vol]Protein [Mass/volume] in Urine by Test stripNegativeTuscarawas HospitalProtein [Mass/volume] in Serum or PlasmaOrdered By: Francisco Duncan on 84-33-5960Vlwxess [Mass/Vol]Protein [Mass/volume] in Serum or Plasma6.4-8.9T[facility]carawas HospitalProthrombin Time INRon 08-11-2024 INR Coag (PPP) [Relative time]1.2 {INR}NormalThe [facility] Physician Group Comment on above:Result Comment: INR Therapeutic Range A) Pre- and Peroperative OAT started two weeks before surgery. NOT HIP SURGERY: 1.5 - 2.5 HIP SURGERY: 2 - 3 B) Primary and secondary prevention of venous THROMBOSIS: 2 - 3 C) Active venous thrombosis, pulmonary embolism and prevention of recurrent venous thromb osis: 2 - 3 D) Prevention of arterial thromboembolism including patients with mechanical heart valves: 3 - 4.5Performed By: #### DIFF CBC, CK, PT, PTT, CMP, HS TROP ####[address] [place] [id number] [facility] PT Coag (PPP) [Time]13.8 sHigh9.0-12.9The [facility] Physician [facility]ippah County HospitalComment on above:Result Comment: A hematocrit value greater than 55% may lead to inaccurate results in coagulation testing. Patients having hematocrit values >55% require a special collection tube for coagulation studies. Please contact the laboratory at [phone] for redraw instructions.Performed By: #### DIFF CBC, CK, PT, PTT, CMP, HS TROP ####[address] [place] [address] USAProthrombin time (PT)Ordered By: Francisco Duncan on 23-86-9645AW Coag (PPP) [Time]Prothrombin time (PT)High9.0-12.9[facility] Comment on above:A hematocrit value greater than 55% may lead to inaccurate results in coagulation testing. Patientshaving hematocrit values >55% require a special collection tube for coagulation studies. Please contact the laboratory at [phone] for redraw instructions.RBC Auto (Bld) [#/Vol]Ordered By: Francisco Duncan on 35-25-5688RSP (Bld) [#/Vol]Erythrocytes [#/volume] in Blood by Automated count3.90-5.60[facility], Beachwoodegmented neutrophils/100 WBC Manual cnt (Bld)Ordered By: Francisco Duncan on 08-11-2024 Segmented neutrophils/100 WBC (Bld)Manual blood segmented neutrophils/100 pfiifwmeso18-86CoujftbczSelect Medical [facility] Hospital, Beachwooderum or plasma albumin/globulin mass ratioOrdered By: Francisco Duncan on 42-31-9384Ilbyygv/Globulin [Mass ratio] Serum or plasma albumin/globulin mass ratioTuscarawas Hospital Serum or plasma anion gap determinationOrdered By: Francisco Duncan on 08-11-2024 Anion gap [Moles/Vol]Serum or plasma anion gap determinationHigh6.0-15.0 [facility], Beachwooderum or plasma iron binding capacity measurement (mass/volume)Ordered By: Marge Andino on 59-28-4143Cxuu binding capacity [Mass/Vol]Iron binding capacity [Mass/volume] in Serum or Dvinrk637-137 [facility], Beachwooderum or plasma iron saturation measurement (mass fraction)Ordered By: Marge Andino on 18-44-6018Ryaw saturation [Mass fraction]Iron saturation [Mass Fraction] in Serum or RyigugAlz49-18YsuhhnukrSelect Medical Cleveland Clinic Rehabilitation Hospital, Beachwoododium [Moles/volume] in Serum or PlasmaOrdered By: Francisco Duncan on 90-84-5272Ewlwpr [Moles/Vol]Sodium [Moles/volume] in Serum or Ifjwtw851-406WxupaejksSelect Medical [facility], Beachwoodpecific gravity Test strip (U) [Rel density]Ordered By: Francisco Duncan on 76-30-1887Dmncewte gravity (U) [Rel density]Specific gravity of Urine by Test strip1.001-1.030T[facility]carawas HospitalThyroid Stimulating Hormoneon 04-31-3943LBT Qn4.18 m[IU]/LNormal 0.45-5.33The [facility] Physician GroupComment on above:Order Comment: Comment addPerformed By: #### TSH3, MG, INDQ41MCS, SVNU64NQ ####[facility] [address] [place] [address] USAThyrotropin [Units/volume] in Serum or PlasmaOrdered By: Marge Andino on 86-87-8287TLM QnThyrotropin [Units/volume] in Serum or Plasma0.45-5.33[facility] Transferrin [Mass/volume] in Serum or PlasmaOrdered By: Marge Andino on 90-26-8360Smycieoerdr [Mass/Vol]Transferrin [Mass/volume] in Serum or Plasma 203-362T[facility]carawas HospitalTroponin I High Sensitivityon 08-11-2024 Troponin I High Fyfproturib8Adwoek1-32Lck [facility] Physician GroupComment on above:Result Comment: The Troponin units of report have been changed to meet the Chest Pain Accreditationrequirement, element EC5.M1l2. Troponin units are changed from pg/ml to ng/L. Also, the decimal is removed and results are in whole numbers.PERFORMED BY:[facility] [place], [place] [phone] MEDICAL DIRECTORMIKE LIU M.D.Performed By: #### DIFF CBC, CK, PT, PTT, CMP, HS TROP ####[facility] [place] [address] USATroponin I.cardiac [Mass/volume] in Serum or Plasma by Detection limit <= 0.01 ng/ Ordered By: Francisco Duncan on 88-54-8501Xzlnrqgd I.cardiac DL <= 0.01 ng/mL [Mass/Vol]Troponin I.cardiac [Mass/volume] in Serum or Plasma by Detection limit <= 0.01 ng/0-20T[facility]awas HospitalComment on above:The Troponin units of report have been changed to meet the Chest Pain Accreditation requirement, element EC5.M1l2. Troponin units are changed from pg/ml to ng/L. Also, the decimal is removed and results are in whole numbers.Urea nitrogen [Mass/volume] in Serum or PlasmaOrdered By: Francisco Duncan on 93-32-7414Gfot nitrogen [Mass/Vol]Urea nitrogen [Mass/volume] in Serum or PlasmaHigh7-25 [facility] HospitalUrinalysison 00-00-1390Ilgxgnifje (U)Clear NormalClearThe [facility] Physician GroupComment on above:Order Comment: Name Collection Type:: VoidedPerformed By: #### UA ####[address] [address] USABilirubin,UrineNegativeNormalNegative The [facility] Physician GroupComment on above:Order Comment: Name Collection Type:: VoidedPerformed By: #### UA ####[address] [address] USAColor (U)Light-YellowNormalYellowThe [facility] Physician GroupComment on above:Order Comment: Name Collection Type:: Voided Performed By: #### UA ####[address] [address] USAGlucose Ql (U)500 mg/dLAcuteCare Health System Physician GroupComment on above:Order Comment: Name Collection Type:: Voided Performed By: #### UA ####[address] [address] USAKetones Ql (U)NegativeNormalNegativeMartin Memorial Health Systems Physician GroupComment on above:Order Comment: Name Collection Type:: Voided Performed By: #### UA ####[address] [address] USALeukocyte esterase Test strip Ql (U)NegativeNormal NegativeMartin Memorial Health Systems Physician GroupComment on above:Order Comment: Name Collection Type:: VoidedPerformed By: #### UA ####[address] [address] USANitrite,UrineNegativeNormalNegativeMartin Memorial [facility] Systems Physician GroupComment on above:Order Comment: Name Collection Type:: VoidedPerformed By: #### UA ####[address] [address] USAOccult Blood,UrineNegativeNormalNegativeThe [facility] Physician GroupComment on above:Order Comment: Name Collection Type:: VoidedResult Comment: PERFORMED BY:[address] [place], [place] [phone] MEDICAL DIRECTORMIKE LIU M.D.Performed By: #### UA ####[address] [place] [address] USApH (U)5.5 [pH]Normal5.0-9.0The [facility] Physician GroupComment on above:Order Comment: Name Collection Type:: VoidedPerformed By: #### UA ####[address] [address] USAProtein,UrineNegativeNormalNegativeThe [facility] Physician GroupComment on above:Order Comment: Name Collection Type:: VoidedPerformed By: #### UA ####[address] [address] [facility] Specificy [place],Urine1.248Zaobcn4.001-1.030The [facility] Physician Group Comment on above:Order Comment: Name Collection Type:: VoidedPerformed By: #### UA ####[address] [address] [facility] Urobilinogen,UrineNormalNormalNormalThe [facility] Physician GroupComment on above:Order Comment: Name Collection Type:: VoidedPerformed By: #### UA ####[address] [address] [facility] Urobilinogen Test strip (U) [Mass/Vol]Ordered By: Francisco Duncan on 08-11-2024 Urobilinogen (U) [Mass/Vol]Urobilinogen [Mass/volume] in Urine by Test strip [facility] Medical CenterVit. B12/Folate Profileon 08-11-2024 Cobalamin (Vitamin B12) [Mass/Vol]129 pg/lREum814-691Cem [facility] Physician GroupComment on above:Order Comment: Comment addPerformed By: #### TSH3, MG, EORP51OPL, ACOM53RP ####[address] [place] [address] PWVMrmbkv87.0 ng/mLNormal>5.9The [facility] Physician GroupComment on above:Order Comment: Comment addResult Comment: Folate reference range: >5.9 ng/ml The WHO technical consultation on folate and vitamin b12 deficiencies has determined that folate concentrations less than 4 ng/ml are considered d eficient.Performed By: #### TSH3, MG, BBJS01EFV, HGHW21NM ####[facility] [place] [address] [facility] FACILITYVitamin B12 ser/plasOrdered By: Marge Andino on 76-25-4203Iwsxvwpzj (Vitamin B12) [Mass/Vol]Vitamin B12 ser/ykbjSfa412-517YwzsreytpTuscarawas HospitalVitamin D 25 Hydroxy Totalon 72-53-1784Ixyanzm D 25 Hydroxy Total15.0 ng/vCFdv19-205Pzr [facility] Physician GroupComment on above:Order Comment: Comment addResult Comment: VITAMIN D STATUS 25(OH)VITAMIN D RANGE (ng/mL) Deficient <20 Insufficient 20 to <30 Sufficient 30 to 100 Reference: Ibrahima Reyes, Kasey LONG, et al. Evaluation,treatment, and prevention of vitamin D deficiency; an Endocrine Society clinical practice guideline.JCEM. 2010; 96(7):191-.PERFORMED BY:[address] [place], [place] [phone] MEDICAL DIRECTORMIKE CABAN M.D. Performed By: #### TSH3, MG, MSPN20SDF, TYYA10LV ####[address] [place] [address] [facility] FACILITYVitamin D+Metabolites [Mass/volume] in Serum or PlasmaOrdered By: Marge Andino on 39-05-7981Tcntutj D+Metabolites [Mass/Vol]Vitamin D+Metabolites [Mass/volume] in Serum or IzvxazVnb47-874 [facility] HospitalComment on above:VITAMIN D STATUS 25(OH)VITAMIN D RANGE (ng/mL) Deficient <20 Insufficient 20 to <24Kovlzqxwqn08 to 100Reference: Ibrahima Reyes, Kasey LONG, et al. Evaluation,treatment, and prevention of vitamin D deficiency; an Endocrine Society clinical practice guideline. JCEM. 2010; 96(7):1911-.WBC Auto (Bld) [#/Vol]Ordered By: Francisco Duncan on 02-94-7142FCW (Bld) [#/Vol]Leukocytes [#/volume] in Blood by Automated countHigh4.1-10.5FWhite HospitalX-ray reportOrdered By: Sudeep Lind on 18-79-6578Kfmsh reportCLEVELAND CLINIC [facility] [address] [place] [address] [place], [place] [address] XRay Report Signed Patient: Myra Pickard SR MR#: [id number] : 1965 Acct:[id number] Age/Sex: 59 / M ADM Date: 5 Loc: Room: [address] [place] [address] Type: ADM IN Attending Dr: Kevon Viera [...] Sudeep Lind M.D.08/11/2024 10:06 AM Dictation Location: [place] [address] Transcribed By: [facility] 08/11/24 1006 Dictated By: Sudeep Lind DO 08/11/24 1006 Signed By: 08/11/24 1006 [facility] HospitalXR chest 1V portableon 65-64-0281WX chest 1V portableHCA Florida [facility] Physician GroupaPTT in Platelet poor plasma by Coagulation assayOrdered By: Francisco Duncan on 32-99-5186uGUA Coag (PPP) [Time] Activated partial thromboplastin time (aPTT) in platelet poor plasma by coagulation a25.1-36.5FWhite HospitalComment on above:A hematocrit value greater than 55% may lead to inaccurate results in coagulation testing. Patientshaving hematocrit values >55% require a special collection tube for coagulation studies. Please contact the laboratory at [phone] for redraw instructions.pH Test strip (U)Ordered By: Francisco Duncan on 29-92-1522rA (U)pH of Urine by Test strip5.0-9.0T[facility]carawas HospitalUrology Office/Clinic Noteon 99-58-5335Aznfzvw Office/Clinic NoteUrology Office/Clinic Note Chief Complaint Patient is here for scrotal pain HPI Staff Patient is here for f/u to [facility] ER 07/24/24 due to scrotal pain. They did US which was negative and dx'd him with Tinea Cruris. Started on Clotrimazole cream. Pt reports no improvement in sx.States the discomfort is not superficial on the [...] blood. He does not get up at nightto urinate. Review of Systems PHQ Score Initial [...] bilat testicles without discrete nodule, edema, induration, fluctuance.Overlying skin is without erythema or warmth or lesions. Assessment/Plan Hx DM w Right BKA. 1. Orchitis (N45.2: [facility]chitis[facility] sudden onset scrotal/groin pain. [...] same. Responded well to Doxy x 3 wksso we will use that now. Also requesting pain meds. Will provide limited rx Ultram. Automat Watcher Cl 44. 08/02/2024 09:33:52 I certify that I have reviewed the OARRS report and all PDMP information in thischart. Follow-up With When Contact Information [facility] Additional Instructions: Only if needed/new problems [...] failure) GERD [Gastroesophageal reflux disease] HTN [Hypertension] NE (myocardial infarction) NIDDM Procedure/Surgical History BKA - [...] 1 cap(s), Oral, (more content not included)... [facility] HospitalComment on above:Result Comment: Electronically Signed By: MARYBEL VANG PA-C.br\Date and Time Signed: 08/07/2511:28 EST Basophils Auto (Bld) [#/Vol]on 39-83-9773Zbqsrfkiw (Bld) [#/Vol]Automated basophil count0.0-0.1FWhite HospitalBasophils/100 WBC Auto (Bld)on 53-93-6702Yxpienbua/100 WBC (Bld)Automated basophil %0.2-2.0T[facility]carawas HospitalEosinophils/100 WBC Auto (Bld)on 07-24-2024 Eosinophils/100 WBC (Bld)Automated eosinophil %0.9-7.0T[facility]carawas HospitalErythrocyte distribution width Auto (RBC) [Ratio]on 20-96-6792Nyzmmnfzhci distribution width (RBC) [Ratio]Erythrocyte distribution width [Ratio] by Automated gwphsCqvj89.0-15.0T[facility]as HospitalEstimated glomerular filtration rate (GFR) non- Americanon 66-34-4123VWF/1.73 sq M.predicted among non-blacks MDRD (S/P/Bld) [Vol rate/Area]Estimated glomerular filtration rate (GFR) non- AmericanLow>=60 mL/min/1.73m 2FWhite HospitalGlobulin Calc (S) [Mass/Vol]on 93-04-1975Aevzucjs (S) [Mass/Vol]Serum globulin measurement by calculation (mass/volume)T[facility]carawas HospitalHematocrit Auto (Bld) [Volume fraction]on 07-24-2024 Hematocrit (Bld) [Volume fraction]Hematocrit [Volume Fraction] of Blood by Automated eefuvGoi55.0-54.0T[facility]carawas HospitalHemoglobin [Mass/volume] in Bloodon 64-49-1958Mvrfgnocej (Bld) [Mass/Vol]Hemoglobin [Mass/volume] in DmixqIwn60.0-18.0[facility] HospitalLaboratory - Chemistry and Chemistry - challengeon 13-09-2690Xsluszu [Mass/Vol]3.3 g/dLLow 3.4-5.0T[facility] HospitalALP [Catalytic activity/Vol]111 U/L 46-116T[facility]carawas HospitalALT [Catalytic activity/Vol]16 U/L16-63 [facility] HospitalAST [Catalytic activity/Vol]11 U/UTsd35-79 [facility] HospitalBilirubin [Mass/Vol]0.4 mg/dL0.2-1.0[facility] HospitalCalcium [Mass/Vol]8.4 mg/dLLow8.5-10.1FWhite HospitalChloride [Moles/Vol]102 mmol/E14-681JkccntdmsTuscarawas HospitalCO2 [Moles/Vol]26.3 mmol/L21.0-32.0[facility] Creatinine [Mass/Vol]2.28 mg/dLHigh0.70-1.30[facility] GFR/1.73 sq M.predicted MDRD (S/P/Bld) [Vol rate/Area]36 mL/min/{1.73_m2}Low>=60 mL/min/1.73m 2FWhite HospitalGlucose [Mass/Vol]177 mg/dLHigh 74-106Tuscarawas HospitalLactate [Moles/Vol]1.8 mmol/L0.4-2.0 [facility] HospitalPotassium [Moles/Vol]3.4 mmol/LLow3.5-5.1 [facility] HospitalProtein [Mass/Vol]7.0 g/dL6.4-8.2FSelect Medical Specialty Hospital - Cincinnati Northodium [Moles/Vol]139 mmol/J687-064LitobwctnTuscarawas HospitalUrea nitrogen [Mass/Vol]22.0 mg/dLHigh7.0-18.0T[facility]awas HospitalUrea nitrogen/Creatinine [Mass ratio]9.6 mg/mgTuscarawas HospitalLaboratory - Hematology and Cell countson 26-86-6540Yufpvywv granulocytes/100 WBC (Bld)0.3 %0.0-0.5FWhite Hospital Leukocytes [#/volume] corrected for nucleated erythrocytes in Blood by Automated counon 05-95-5935PNM corrected for nucl RBC Auto (Bld) [#/Vol]Leukocytes [#/volume] corrected for nucleated erythrocytes in Blood by Automated coun 4.0-11.0[facility]carawas HospitalLymphocytes Auto (Bld) [#/Vol]on 45-72-8213Vqitwobieus (Bld) [#/Vol]Lymphocytes [#/volume] in Blood by Automated count1.2-3.8[facility] HospitalLymphocytes/100 WBC Auto (Bld)on 91-57-0381Gpggioqzqlf/100 WBC (Bld)Lymphocytes/100 leukocytes in Blood by Automated count20.5-60.0[facility] HospitalH Auto (RBC) [Entitic mass]on 94-29-9318NLF (RBC) [Entitic mass]MCH [Entitic mass] by Automated count Low25.9-34.0[facility] HospitalMCHC Auto (RBC) [Mass/Vol]on 36-93-0725HTIW (RBC) [Mass/Vol]MCHC [Mass/volume] by Automated rtvfgGlx35.9-35.2 [facility] HospitalV Auto (RBC) [Entitic vol]on 58-04-3492NLD (RBC) [Entitic vol]MCV [Entitic volume] by Automated jjohfYze86.0-94.0[facility] HospitalMonocytes Auto (Bld) [#/Vol]on 23-26-4420Weubbyexm (Bld) [#/Vol]Automated blood monocyte countHigh0.3-0.8[facility] HospitalMonocytes/100 WBC Auto (Bld)on 40-37-1742Kcalntoqc/100 WBC (Bld)Automated monocyte %1.7-12.0[facility] HospitalNeutrophils Auto (Bld) [#/Vol]on 22-72-4249Svjshzbzjmh (Bld) [#/Vol]Neutrophils [#/volume] in Blood by Automated count1.4-6.5FWhite HospitalNeutrophils/100 WBC Auto (Bld)on 82-69-6454Brbfvnwnyvi/100 WBC (Bld)Automated neutrophil %43.0-75.0 [facility] HospitalNo Panel Informationon 02-61-8403Sxmlxozurxg # (Auto)0.4 10 3/uL0.0-0.7FWhite HospitalImmature Granulocyte # (Auto)0.03 10 3/uL0.00-0.03[facility] HospitalPlatelet mean volume Auto (Bld) [Entitic vol]on 79-08-7827Wlzjyihv mean volume (Bld) [Entitic vol] Platelet mean volume [Entitic volume] in Blood by Automated count9.5-13.5 [facility] HospitalPlatelets Auto (Bld) [#/Vol]on 07-24-2024 Platelets (Bld) [#/Vol]Platelets [#/volume] in Blood by Automated nqreb348-766 [facility] HospitalRBC Auto (Bld) [#/Vol]on 30-59-5683YLY (Bld) [#/Vol]Erythrocytes [#/volume] in Blood by Automated count4.70-6.10[facility] Beachwooderum or plasma albumin/globulin mass ratioon 07-24-2024 Albumin/Globulin [Mass ratio]Serum or plasma albumin/globulin mass ratio [facility], Beachwooderum or plasma anion gap determinationon 60-36-2378Veoen gap [Moles/Vol]Serum or plasma anion gap determinationTuscarawas HospitalPSA Totalon 17-35-6679Tesuayxh specific Ag [Mass/Vol]1.0 ng/mLNormal0.1-3.5[facility] CenterComment on above:Result Comment: The concentration of PSA determined by different manufacturers can vary due to differences in assay methods and reagent specificity. Values obtained from different assay methods cannot be used interchangeably. The methodology used for this result was chemiluminescence using [employer]'s Access Hybritech PSA reagent.Performed By: #### [id number] #### [facility] [address], [place] [address]Xfmxcyupxq Visit Summaryon 52-57-5566Rbduyqjhbf Visit Summary Ambulatory Visit Summary MYRA PICKARD [...] mg Tab) glimepiride (Amaryl 2 mg Tab) hydrochlorothiazide-valsartan (hydrochlorothiazide-valsartan 12.5 mg-160 mg Tab) insulin glargine (insulin [...] Where: [facility] [address], [place] [address] [phone] Medications What How Much When Instructions Unchanged tamsulosin (tamsulosin 0.4 mg Cap) 1 Capsules By Mouth 2 times a day Pickup at [facility]/pharmacy #[id number] Unchanged albuterol (ProAir HFA) Inhalation Every 6 [...] Tablets By Mouth Every day Contact prescribing physicianif questions or concerns Unchanged dulaglutide (Trulicity Pen [...] prescribing physician if questions or concerns Unchanged hydrochlorothiazide-valsartan (hydrochlorothiazide-valsartan 12.5 mg- 160 mg Tab) 1 Tablets By Mouth Every day Contact prescribing physician if questions or concerns Unchanged insulin glargine (insulin glargine 100 units/ mL SubQ Malaika 10 mL) 35 Units Subcutaneous Atbedtime Contact prescribing physician if questions or concerns [...] a day Contact prescribing physician if questions orconcerns Unchanged metformin (metformin 1000 mg Tab) 1 Tablets By Mouth 2 times a day Contact prescribing physician if questions or concerns Unchanged (more content not included)...[facility] HospitalU[facility] Office/Clinic Noteon 70-94-2032Yxrcajq Office/Clinic NoteUrology Office/Clinic Note Chief Complaint 1 year f/u [...] No b.t. High-grade trabeculation. Small open mouth diverticuli.Urodynamics shows a low flow, incomplete emptying and moderate pressures. S/p TURP 04/13/23. Had restarted CIC after catheter removal PO TURP. Prior PVRs ranged from 534-787 ml when pt did CICprior to TURP. PVR 06/02/23 - 31cc. Has not had to CIC over the past year. Voids 3-4x/day and 2x/night. Taking Tamsulosin 0.4mg bid. Denies any bother with urination. -Cont Tamsulosin bid. Refills sent to [facility]. 2. Screening PSA (prostate specific antigen) (Z12.5: Encounter for screening for malignant neoplasmof prostate) PSA 01/11/22 - 2.44 No fam hx of prostate cancer. -PSA to be drawn IO. Will call pt with results. 3. Orchitis (N45.2: Orchitis) Tx'd w/ Doxycycline 100 mg bid x 3 weeks in November 2022. Follow-up With When Contact Information SOLEDAD HERRERA, Yeyo Blum, URL [facility] [address], [place] [phone] Additional Instructions: 1 yr Patient Education Benign [...] failure) GERD [Gastroesophageal reflux disease] HTN [Hypertension] NE (myocardial infarction) NIDDM Procedure/Surgical History BKA - [...] tab(s), Oral, Daily me (more content not included)...[facility] HospitalComment on above:Result Comment: Electronically Signed By: Yeyo ROWE MD\.br\Date and Time Signed: 05/27/24 16:02 EST\.br\Electronically Co-Signed By: Sharri Mora\.br\Date and Time Co-Signed: 05/27/24 16:01 ESTGlucose Glucometer (dC) [Mass/Vol]Ordered By: Mike Burleson on 64-47-9856Ckbeycj [Mass/Vol]Capillary blood glucose measurement by glucometer (mass/volume)[facility]as HospitalComment on above:Random Glucose Reference Range is dependent on time and content of last meal. Glucose of more than 200 mg/dL in a nonstressed, ambulatory subject supports the diagnosis of Diabetes Mellitus.Glucose Poct Glucometerson 66-40-3229Vzjfwhc7Jcn7: Cleaned [facility] Physician GroupComment on above:Result Comment: PERFORMED BY:[facility] [place], [place] [phone] MEDICAL DIRECTORMIKE CABAN M.D.Performed By: #### GLULS ####Point of Care testing,Glucose [Mass/Vol]212 mg/dLNoNovant Health Pender Medical Center Physician GroupComment on above:Result Comment: Random Glucose Reference Range is dependent on time and content of last meal. Glucose of more than 200 mg/dL in a nonstressed, ambulatory subject supports the diagnosis of Diabetes Mellitus.Performed By: #### GLULS ####Point of Care testing,Guy 08-20-1270DSzowfaAxb [facility] Physician GroupNo Panel InformationOrdered By: Mike Burleson on 04-23-2024 Bedside Glucose CommentGlu2: cleaned [facility] HospitalHbA1c HPLC (Bld) [Mass fraction]on 43-07-9831RdE9e (Bld) [Mass fraction]Hemoglobin A1c/Hemoglobin.total in Blood by [facility] HospitalAlanine aminotransferase [Enzymatic activity/volume] in Serum or PlasmaOrdered By: João Powell on 13-38-7543YUQ [Catalytic activity/Vol]38 U/LNormalTuscarawas HospitalComment on above:Performed By: #### CMP, PHOS, CBC, MG ####[facility] [place] [address] USAALT [Catalytic activity/Vol]Alanine aminotransferase [Enzymatic activity/volume] in Serum or PlasmaTuscarawas HospitalAlbumin [Mass/volume] in Serum or Plasma by Bromocresol green (BCG) dye binding methoOrdered By: João Powell on 76-26-2735Nihqilz BCG dye [Mass/Vol]3.6 g/dL3.5-5.7FWhite HospitalAlbumin BCG dye [Mass/Vol]Albumin [Mass/volume] in Serum or Plasma by Bromocresol green (BCG) dye binding metho3.5-5.7FWhite HospitalAlkaline phosphatase [Enzymatic activity/volume] in Serum or PlasmaOrdered By: João Powell on 95-68-7470LRO [Catalytic activity/Vol]313 U/IWraj35-335 [facility] HospitalComment on above:Performed By: #### CMP, PHOS, CBC, MG ####[address] [address] USAALP [Catalytic activity/Vol]Alkaline phosphatase [Enzymatic activity/volume] in Serum or TnofpxKbzk15-911KxpffqfhwTuscarawas HospitalAspartate aminotransferase [Enzymatic activity/volume] in Serum or PlasmaOrdered By: João Powell on 00-13-4822KUF [Catalytic activity/Vol]28 U/IGhtjfr67-82Hgyityewk10 Clark StreetComment on above:Performed By: #### CMP, PHOS, CBC, MG ####[address] [address] USAAST [Catalytic activity/Vol]Aspartate aminotransferase [Enzymatic activity/volume] in Serum or Zmojsf65-95Klfkdtvmr[address] [place], [place] [address]Automated basophil % Ordered By: João Powell on 94-03-4557Felknglzu/100 WBC (Bld)1.2 %Normal. [facility] HospitalComment on above:Performed By: #### CMP, PHOS, CBC, MG ####[address] [address] USAAutomated basophil countOrdered By: João Powell on 70-74-3219Czpgmkvvy (Bld) [#/Vol]0.1 10*3/uLNormal0.0-0.2FWhite HospitalComment on above:Result Comment: PERFORMED BY:[address] [place], [place] [phone] MEDICAL DIRECTORCLIFFORD LOBATO M.D. Performed By: #### CMP, PHOS, CBC, MG ####[address] [address] USAAutomated blood monocyte countOrdered By: João Powell on 20-83-5456Banrtpkqt (Bld) [#/Vol]0.9 10*3/uLHigh0.0-0.8T[facility]awas HospitalComment on above:Performed By: #### CMP, PHOS, CBC, MG ####[place] [address] [address] Automated eosinophil %Ordered By: João Powell on 90-51-7466Xfrlhxfvrwd/100 WBC (Bld)3.0 %Normal.T[facility]carawas HospitalComment on above:Performed By: #### CMP, PHOS, CBC, MG ####[place] [address] USAAutomated eosinophil countOrdered By: João Powell on 08-74-5482Jyqfygpizfj (Bld) [#/Vol]0.2 10*3/uLNormal0.0-0.45T[facility] HospitalCombronson lakeview hospital on above:Performed By: #### CMP, PHOS, CBC, MG ####[address] Automated monocyte %Ordered By: João Powell on 18-79-2570Ptvvzlvlq/100 WBC (Bld)14.4 %Normal.T[facility]carawas HospitalComment on above:Performed By: #### CMP, PHOS, CBC, MG ####[place] [address] USAAutomated neutrophil %Ordered By: João Powell on 29-13-0119Edofugiqvpw/100 WBC (Bld)66.7 %Normal.T[facility]carawas HospitalComment on above:Performed By: #### CMP, PHOS, CBC, MG ####[place] [address] USABasophils Auto (Bld) [#/Vol]Ordered By: João Powell on 78-71-5712Kshkjynzy (Bld) [#/Vol]Automated basophil count0.0-0.2FWhite HospitalBasophils/100 WBC Auto (Bld)Ordered By: João Powell on 34-85-0180Zyaczhooz/100 WBC (Bld)Automated basophil %.T[facility]awas HospitalBilirubin.total [Mass/volume] in Serum or PlasmaOrdered By: João Powell on 22-55-3925Jcyuaprfz [Mass/Vol]0.9 mg/dLNormal0.3-1.0T[facility]as HospitalComment on above:Performed By: #### CMP, PHOS, CBC, MG ####[facility] [address] [place] [address] USABilirubin [Mass/Vol]Bilirubin.total [Mass/volume] in Serum or Plasma0.3-1.0T[facility] HospitalCalcium [Mass/volume] in Serum or PlasmaOrdered By: João Powell on 55-88-9902Sqeypyl [Mass/Vol]9.1 mg/dLNormal8.6-10.3FWhite HospitalComment on above:Performed By: #### CMP, PHOS, CBC, MG ####[facility] [place] [address] USACalcium [Mass/Vol]Calcium [Mass/volume] in Serum or Plasma8.6-10.3FWhite HospitalCapillary blood glucose measurement by glucometer (mass/volume)Ordered By: Remberto Ervin on 03-13-2024 Glucose [Mass/Vol]155 mg/dLNoUniversity Hospitals Samaritan Medical CenterComment on above:Random Glucose Reference Range is dependent on time and content of last meal. Glucose of more than 200 mg/dL in a nonstressed, ambulatory subject supports the diagnosis of Diabetes Mellitus.Result Comment: Random Glucose Reference Range is dependent on time and content of last meal. Glucose of more than 200 mg/dL in a nonstressed, ambulatory subject supports the diagnosis of Diabetes Mellitus.PERFORMED BY:[address] [place], [place] [phone] MEDICAL DIRECTORCLIFFORD LOBATO M.D. Performed By: #### GLULS ####Point of Care testing,Carbon dioxide, total [Moles/volume] in Serum or PlasmaOrdered By: João Powell on 04-38-1195SK4 [Moles/Vol]23.9 mmol/VWbykht74.0-31.0T[facility]awas HospitalComment on above:Performed By: #### CMP, PHOS, CBC, MG ####[place] [address] [place] [address] USACO2 [Moles/Vol]Carbon dioxide, total [Moles/volume] in Serum or Qczuce84.0-31.0[facility] Chloride [Moles/volume] in Serum or PlasmaOrdered By: João Powell on 03-13-2024 Chloride [Moles/Vol]101 mmol/ZKjergo91-865Xmoocmlvm[address] Comment on above:Performed By: #### CMP, PHOS, CBC, MG ####[place] [address] [place] [address] USAChloride [Moles/Vol]Chloride [Moles/volume] in Serum or Wczyjh81-560Jspywzmym[address] [place], [place] [address]Complete Blood Count Auto Diffon 37-31-7935Cfdx Corpuscular HGB Conc31.7 g/dLLow 32.5-35.6The [facility] Physician [facility] County HospitalComment on above:Performed By: #### CMP, PHOS, CBC, MG ####[place] [id number] USANRBC%0.1 /100{WBC}Normal0-0.5The [facility] Physician [facility] County HospitalComment on above:Performed By: #### CMP, PHOS, CBC, MG ####[address] [address] USAComprehensive Metabolic Panelon 17-11-7861Gfxqjzt [Mass/Vol]3.6 g/dLNormal3.5-5.7The [facility] Physician [facility] Comment on above:Performed By: #### CMP, PHOS, CBC, MG ####[address] [address] USACreatinine Clr Calc Pharmacy 56.79NormalThe [facility] Physician [facility] County HospitalComment on above:Performed By: #### CMP, PHOS, CBC, MG ####[address] [address] USAGFR/1.73 sq M.predicted MDRD (S/P/Bld) [Vol rate/Area]53.205 mL/min/{1.73_m2}NormalThe [facility] Physician GroupComment on above:Performed By: #### CMP, PHOS, CBC, MG ####[facility] [address] [place] [address] USACreatinine [Mass/volume] in Serum or PlasmaOrdered By: João Powell on 31-30-3870Dkffhjnhsy [Mass/Vol]1.51 mg/dLHigh0.70-1.30 [facility] HospitalComment on above:Performed By: #### CMP, PHOS, CBC, MG ####[facility] [address] [place] [address] USACreatinine [Mass/Vol]Creatinine [Mass/volume] in Serum or PlasmaHigh0.70-1.30 [facility] HospitalEosinophils Auto (Bld) [#/Vol]Ordered By: João Powell on 14-57-7234Zhsvnwiswch (Bld) [#/Vol]Automated eosinophil count 0.0-0.45T[facility]carawas HospitalEosinophils/100 WBC Auto (Bld)Ordered By: João Powell on 25-53-9944Nljygdmnpao/100 WBC (Bld)Automated eosinophil %. [facility]as HospitalErythrocyte distribution width Auto (RBC) [Ratio]Ordered By: João Powell on 05-01-7848Qcypygrlqah distribution width (RBC) [Ratio]Erythrocyte distribution width [Ratio] by Automated countHigh 12.0-14.8T[facility]carawas HospitalErythrocyte distribution width [Ratio] by Automated countOrdered By: João Powell on 75-14-6759Orecxqwqdmt distribution width (RBC) [Ratio]24.5 %High12.0-14.8T[facility]awas HospitalComment on above:Performed By: #### CMP, PHOS, CBC, MG ####[place] [address] [place] [address] USAErythrocytes [#/volume] in Blood by Automated countOrdered By: João Powell on 22-59-3618OOO (Bld) [#/Vol]4.12 10*6/uLNormal3.90-5.60[facility] Medical CenterComment on above:Performed By: #### CMP, PHOS, CBC, MG ####[facility] [place] [address] USAGlobulin Calc (S) [Mass/Vol]Ordered By: João Powell on 82-35-4135Gshqkium (S) [Mass/Vol]Serum globulin measurement by calculation (mass/volume)T[facility]awas HospitalGlucose Glucometer (BldC) [Mass/Vol]Ordered By: Remberto Ervin on 30-61-2553Hcbvmcj [Mass/Vol] Capillary blood glucose measurement by glucometer (mass/volume)T[facility]awas HospitalComment on above:Random Glucose Reference Range is dependent on time and content of last meal. Glucose of more than 200 mg/dL in a nonstressed, ambulatory subject supports the diagnosis of Diabetes Mellitus. Glucose Poct Glucometerson 29-10-8976Ztguqmy [Mass/Vol]162 mg/dLNoNovant Health Pender Medical Center Physician GroupComment on above:Result Comment: Random Glucose Reference Range is dependent on time and content of last meal. Glucose of more than 200 mg/dL in a nonstressed, ambulatory subject supports the diagnosis of Diabetes Mellitus.PERFORMED BY:[address] [place], [place] [phone] MEDICAL DIRECTORCLIFFORD LOBATO M.D. Performed By: #### GLULS ####Point of Care testing,Glucose [Mass/volume] in Serum or PlasmaOrdered By: João Powell on 19-29-3511Raodewo [Mass/Vol]149 mg/dL Ubba58-446HsbfytzznTuscarawas HospitalComment on above:ADA recommended reference rangeRandom Glucose Reference Range is dependent on time and content of last meal. Glucose of more than 200 mg/dL in a nonstressed, ambulatory subject supports the diagnosisof Diabetes Mellitus.Result Comment: Random Glucose Reference Range is dependent on time and content of last meal. Glucose of more than 200 mg/dL in a nonstressed, ambulatory subject supports the diagnosis of Diabetes Mellitus. ADA recommended reference rangePerformed By: #### CMP, PHOS, CBC, MG ####[facility] [place] [address] USAGlucose [Mass/Vol]Glucose [Mass/volume] in Serum or BocnviKfoy03-018KczyhrsacTuscarawas HospitalComment on above:ADA recommended reference rangeRandom Glucose Reference Range is dependent on time and content of last meal. Glucose of more than 200 mg/dL in a nonstressed, ambulatory subject supports the diagnosisof Diabetes Mellitus.Hematocrit Auto (Bld) [Volume fraction]Ordered By: João Powell on 39-69-3954Uovgtocpea (Bld) [Volume fraction]Hematocrit [Volume Fraction] of Blood by Automated countLow 38.8-50.0T[facility]carawas HospitalHematocrit [Volume Fraction] of Blood by Automated countOrdered By: João Powell on 16-52-1018Zrdtggncyl (Bld) [Volume fraction]29.9 %Low38.8-50.0T[facility]as HospitalComment on above: Performed By: #### CMP, PHOS, CBC, MG ####[facility] [address] [place] [address] USAHemoglobin [Mass/volume] in BloodOrdered By: João Powell on 94-66-2404Mnlrwvqcgm (Bld) [Mass/Vol]9.5 g/dLLow13.0-17.0 [facility] HospitalComment on above:Performed By: #### CMP, PHOS, CBC, MG ####[facility] [address] [place] [address] USAHemoglobin (Bld) [Mass/Vol]Hemoglobin [Mass/volume] in TtrpaOdr48.0-17.0 [facility] HospitalLeukocytes [#/volume] corrected for nucleated erythrocytes in Blood by Automated counOrdered By: João Powell on 95-37-6236OXE corrected for nucl RBC Auto (Bld) [#/Vol]6.0 10*3/uL4.1-10.5FWhite HospitalWBC corrected for nucl RBC Auto (Bld) [#/Vol]Leukocytes [#/volume] corrected for nucleated erythrocytes in Blood by Automated coun4.1-10.5 [facility] HospitalLeukocytes [#/volume] in Blood by Automated countOrdered By: João Powell on 54-01-4868HDH (Bld) [#/Vol]6.0 10*3/uLNormal 4.1-10.5FWhite HospitalComment on above:Performed By: #### CMP, PHOS, CBC, MG ####[place] [address] [place] [address] USALymphocytes Auto (Bld) [#/Vol]Ordered By: João Powell on 03-13-2024 Lymphocytes (Bld) [#/Vol]Lymphocytes [#/volume] in Blood by Automated countLow 1.00-4.8T[facility]awas HospitalLymphocytes [#/volume] in Blood by Automated countOrdered By: João Powell on 84-68-2123Slrqhwmvraj (Bld) [#/Vol] 0.9 10*3/uLLow1.00-4.8T[facility]as HospitalComment on above: Performed By: #### CMP, PHOS, CBC, MG ####[place] [id number] USALymphocytes/100 WBC Auto (Bld)Ordered By: João Powell on 82-76-1180Aallhkwpqpw/100 WBC (Bld)Lymphocytes/100 leukocytes in Blood by Automated count.[facility] HospitalLymphocytes/100 leukocytes in Blood by Automated countOrdered By: João Powell on 03-13-2024 Lymphocytes/100 WBC (Bld)14.7 %Normal.[facility]as HospitalComment on above:Performed By: #### CMP, PHOS, CBC, MG ####[place] [id number] [facility] Auto (RBC) [Entitic mass]Ordered By: João Powell on 07-06-1298HDD (RBC) [Entitic mass]MCH [Entitic mass] by Automated adaajSwj04.5-35.2FWooster [facility] Hospital [Entitic mass] by Automated countOrdered By: João Powell on 23-92-6226FMC (RBC) [Entitic mass] 23.0 pgLow27.5-35.2FWhite HospitalComment on above:Performed By: #### CMP, PHOS, CBC, MG ####[address] [address] [facility] Auto (RBC) [Mass/Vol]Ordered By: João Powell on 80-68-7857MMDG (RBC) [Mass/Vol]31.7 g/dLLow32.5-35.6FSt. Charles HospitalHC (RBC) [Mass/Vol]MCHC [Mass/volume] by Automated countLow 32.5-35.6FDiley Ridge Medical Center Auto (RBC) [Entitic vol]Ordered By: João Powell on 78-91-4697BKC (RBC) [Entitic vol]MCV [Entitic volume] by Automated jgtweZpe93.5-101[facility]al HospitalV [Entitic volume] by Automated countOrdered By: João Powell on 17-52-7423JFD (RBC) [Entitic vol] 72.6 [address] [place], [place] [address]Comment on above:Performed By: #### CMP, PHOS, CBC, MG ####[address] [address] USAMagnesium [Mass/volume] in Serum or PlasmaOrdered By: João Powell on 39-80-2191Xpdjhxjmi [Mass/Vol]1.7 mg/dLLow1.9-2.7FWhite HospitalComment on above:Result Comment: PERFORMED BY:[address] [place], [place] [phone] MEDICAL BRISA LOBATO M.D.Performed By: #### CMP, PHOS, CBC, MG ####[address] [address] [place] Magnesium [Mass/Vol]Magnesium [Mass/volume] in Serum or PlasmaLow1.9-2.7 [facility] HospitalMonocytes Auto (Bld) [#/Vol]Ordered By: João Powell on 78-58-2086Fjddomgxa (Bld) [#/Vol]Automated blood monocyte countHigh 0.0-0.8T[facility] HospitalMonocytes/100 WBC Auto (Bld)Ordered By: João Powell on 82-95-3840Ektxzkytm/100 WBC (Bld)Automated monocyte %.T[facility]carawas HospitalNeutrophils Auto (Bld) [#/Vol]Ordered By: João Powell on 13-60-1962Takfkhffwee (Bld) [#/Vol]Neutrophils [#/volume] in Blood by Automated count1.8-7.7FWhite HospitalNeutrophils [#/volume] in Blood by Automated countOrdered By: João Powell on 03-58-9753Trpeefuwjiv (Bld) [#/Vol] 4.0 10*3/uLNormal1.8-7.7FWhite HospitalComment on above: Performed By: #### CMP, PHOS, CBC, MG ####[facility] [address] [place] [address] USANeutrophils/100 WBC Auto (Bld)Ordered By: João Powell on 14-33-7854Wqgyhwpjhbn/100 WBC (Bld)Automated neutrophil %. [facility] HospitalNo Panel InformationOrdered By: João Powell on 23-65-4396Jxukvjxnb GFR (CKD-EPI)53.205 mL/[facility] Creatinine Clearance (Chem56.79[facility]53.205 mL/[facility]56.79[facility] Nucleated erythrocytes [Presence] in Blood by Automated countOrdered By: João Powlel on 73-00-0152Vgrziepif RBC Auto Ql (Bld)0.1 /100{WBC}0-0.5FWhite HospitalNucleated RBC Auto Ql (Bld)Nucleated erythrocytes [Presence] in Blood by Automated count0-0.5FWhite Hospital Phosphate [Mass/volume] in Serum or PlasmaOrdered By: João Powell on 03-13-2024 Phosphate [Mass/Vol]3.0 mg/dLNormal2.5-4.5FWhite Hospital Comment on above:Performed By: #### CMP, PHOS, CBC, MG ####[address] [address] USAPhosphate [Mass/Vol]Phosphate [Mass/volume] in Serum or Plasma2.5-4.5FWhite HospitalPlatelet mean volume Auto (Bld) [Entitic vol]Ordered By: João Powell on 03-13-2024 Platelet mean volume (Bld) [Entitic vol]Platelet mean volume [Entitic volume] in Blood by Automated count6.6-10.1FWhite HospitalPlatelet mean volume [Entitic volume] in Blood by Automated countOrdered By: João Powell on 42-98-9667Mnehoqye mean volume (Bld) [Entitic vol]8.9 fLNormal6.6-10.1FWhite HospitalComment on above:Performed By: #### CMP, PHOS, CBC, MG ####[place] [id number] [place] Platelets Auto (Bld) [#/Vol]Ordered By: João Powell on 97-72-5525Yepfgujos (Bld) [#/Vol]Platelets [#/volume] in Blood by Automated shijr821-522BbpqwmypuTuscarawas HospitalPlatelets [#/volume] in Blood by Automated countOrdered By: João Powell on 24-97-4236Qgvmubqvp (Bld) [#/Vol]197 10*3/vEQrxggu528-936 [facility] HospitalComment on above:Performed By: #### CMP, PHOS, CBC, MG ####[place] [id number] USAPotassium [Moles/volume] in Serum or PlasmaOrdered By: João Powell on 38-13-6626Xxwowykyg [Moles/Vol]3.9 mmol/LNormal3.5-5.1FWhite HospitalComment on above:Performed By: #### CMP, PHOS, CBC, MG ####[address] [address] USAPotassium [Moles/Vol] Potassium [Moles/volume] in Serum or Plasma3.5-5.1FWhite HospitalProtein [Mass/volume] in Serum or PlasmaOrdered By: João Powell on 98-14-6360Iqlzcfx [Mass/Vol]7.5 g/dLNormal6.4-8.9T[facility]carawas HospitalComment on above:Performed By: #### CMP, PHOS, CBC, MG ####[address] [place] [address] USAProtein [Mass/Vol] Protein [Mass/volume] in Serum or Plasma6.4-8.9[facility] RBC Auto (Bld) [#/Vol]Ordered By: João Powell on 30-53-7178IEI (Bld) [#/Vol] Erythrocytes [#/volume] in Blood by Automated count3.90-5.60[facility], Beachwooderum globulin measurement by calculation (mass/volume)Ordered By: João Powell on 41-88-9620Fccwuuww (S) [Mass/Vol]3.9 g/dLNoUniversity Hospitals Samaritan Medical CenterComment on above:Performed By: #### CMP, PHOS, CBC, MG ####[address] [address] USASerum or plasma albumin/globulin mass ratioOrdered By: João Powell on 03-13-2024 Albumin/Globulin [Mass ratio]0.9 {ratio}NormalTuscarawas Hospital Comment on above:Performed By: #### CMP, PHOS, CBC, MG ####[address] [address] USAAlbumin/Globulin [Mass ratio] Serum or plasma albumin/globulin mass ratioTuscarawas Hospital Serum or plasma anion gap determinationOrdered By: João Powell on 03-13-2024 Anion gap [Moles/Vol]13.0 mmol/LNormal6.0-15.0[facility] Comment on above:Performed By: #### CMP, PHOS, CBC, MG ####[address] [address] USAAnion gap [Moles/Vol]Serum or plasma anion gap determination6.0-15.0[facility], Beachwoododium [Moles/volume] in Serum or PlasmaOrdered By: João Powell on 21-78-4017Vqegri [Moles/Vol]134 mmol/TOek880-076Gzssckfet[address] [place], [place] [address]Comment on above:Performed By: #### CMP, PHOS, CBC, MG ####[address] [place] [address] USASodium [Moles/Vol]Sodium [Moles/volume] in Serum or VfaxhsYgy377-182VidiihrlxTuscarawas HospitalUrea nitrogen [Mass/volume] in Serum or PlasmaOrdered By: João Powell on 03-13-2024 Urea nitrogen [Mass/Vol]18 mg/dLNormalTuscarawas Hospital Comment on above:Performed By: #### CMP, PHOS, CBC, MG ####[address] [address] USAUrea nitrogen [Mass/Vol]Urea nitrogen [Mass/volume] in Serum or Plasma12-27[facility] WBC Auto (Bld) [#/Vol]Ordered By: João Powell on 12-50-5730OUS (Bld) [#/Vol] Leukocytes [#/volume] in Blood by Automated count4.1-10.5FWhite HospitalComplete Blood Count Auto Diffon 11-78-7980Freyunjvw (Bld) [#/Vol] 0.0 10*3/uLNormal0.0-0.2The [facility] Physician GroupComment on above:Result Comment: PERFORMED BY:[address] [place], [place] [phone] MEDICAL DIRECTORCLIFFORD LOBATO M.D.Performed By: #### CBC, CMP, PHOS, MG ####[address] [place] [address] USABasophils/100 WBC (Bld)0.8 %Normal.The [facility] Physician GroupComment on above:Performed By: #### CBC, CMP, PHOS, MG ####[place] [address] [place] Eosinophils (Bld) [#/Vol]0.1 10*3/uLNormal0.0-0.45The [facility] Comment on above:Performed By: #### CBC, CMP, PHOS, MG ####[place] [address] USAEosinophils/100 WBC (Bld)1.7 % Normal.The [facility] Physician GroupComment on above:Performed By: #### CBC, CMP, PHOS, MG ####[place] [address] USAErythrocyte distribution width (RBC) [Ratio]24.0 %High12.0-14.8The [facility] Physician GroupComment on above:Performed By: #### CBC, CMP, PHOS, MG ####[address] Hematocrit (Bld) [Volume fraction]28.0 %Low38.8-50.0The [facility] Physician GroupComment on above:Performed By: #### CBC, CMP, PHOS, MG ####[place] [address] USAHemoglobin (Bld) [Mass/Vol]9.0 g/dLLow13.0-17.0The [facility] Physician GroupComment on above: Performed By: #### CBC, CMP, PHOS, MG ####[place] [address] USALymphocytes (Bld) [#/Vol]0.7 10*3/uLLow 1.00-4.8The [facility] Physician GroupComment on above:Performed By: #### CBC, CMP, PHOS, MG ####[place] [address] USALymphocytes/100 WBC (Bld)12.6 %Normal.The [facility] Comment on above:Performed By: #### CBC, CMP, PHOS, MG ####[place] [address] USAMCH (RBC) [Entitic mass]23.1 pgLow27.5-35.2The [facility] Physician GroupComment on above:Performed By: #### CBC, CMP, PHOS, MG ####[address] (RBC) [Entitic vol]72.1 fLLow83.5-101The [facility] Physician GroupComment on above:Performed By: #### CBC, CMP, PHOS, MG ####[place] [address] USAMean Corpuscular HGB Conc32.1 g/dLLow32.5-35.6The [facility] Physician GroupComment on above:Performed By: #### CBC, CMP, PHOS, MG ####[place] [address] USAMonocytes (Bld) [#/Vol]1.0 10*3/uLHigh0.0-0.8The [facility] Physician GroupComment on above:Performed By: #### CBC, CMP, PHOS, MG ####[place] [address] [place] Monocytes/100 WBC (Bld)16.2 %Normal.The [facility] Physician GroupComment on above:Performed By: #### CBC, CMP, PHOS, MG ####[place] [address] USANeutrophils (Bld) [#/Vol]4.0 10*3/uL Normal1.8-7.7The [facility] Physician GroupComment on above:Performed By: #### CBC, CMP, PHOS, MG ####[place] [address] USANeutrophils/100 WBC (Bld)68.7 %Normal.The [facility] Comment on above:Performed By: #### CBC, CMP, PHOS, MG ####[place] [address] USANRBC%0.1 /100{WBC}Normal0-0.5 The [facility] Physician GroupComment on above:Performed By: #### CBC, CMP, PHOS, MG ####[address] Platelet mean volume (Bld) [Entitic vol]8.8 fLNormal6.6-10.1The [facility] Physician GroupComment on above:Performed By: #### CBC, CMP, PHOS, MG ####[address] Platelets (Bld) [#/Vol]191 10*3/uMZilpqh406-852Rbj [facility] Comment on above:Performed By: #### CBC, CMP, PHOS, MG ####[place] [address] USARBC (Bld) [#/Vol]3.89 10*6/uL Low3.90-5.60The [facility] Physician GroupComment on above:Performed By: #### CBC, CMP, PHOS, MG ####[place] [address] USAWBC (Bld) [#/Vol]5.9 10*3/uLNormal4.1-10.5The [facility] Physician GroupComment on above:Performed By: #### CBC, CMP, PHOS, MG ####[address]Comprehensive Metabolic Panelon 43-01-7609Wbqttot [Mass/Vol]3.5 g/dLNormal3.5-5.7The [facility] Physician GroupComment on above:Performed By: #### CBC, CMP, PHOS, MG ####[address] Albumin/Globulin [Mass ratio]0.9 {ratio}NormalThe [facility] Physician [facility] Comment on above:Performed By: #### CBC, CMP, PHOS, MG ####[place] [address] USAALP [Catalytic activity/Vol] 328 U/ISahl57-963Xwd [facility] Physician GroupComment on above:Performed By: #### CBC, CMP, PHOS, MG ####[address] [address] USAALT [Catalytic activity/Vol]46 U/LNormal7-52The [facility] Physician GroupComment on above:Performed By: #### CBC, CMP, PHOS, MG ####[address] USAAnion gap [Moles/Vol]14.2 mmol/LNormal6.0-15.0The [facility] Physician GroupComment on above:Performed By: #### CBC, CMP, PHOS, MG ####[address] USAAST [Catalytic activity/Vol]34 U/L Ooohob78-56Pcv [facility] Physician GroupComment on above:Performed By: #### CBC, CMP, PHOS, MG ####[address] USABilirubin [Mass/Vol]1.0 mg/dLNormal0.3-1.0The [facility] Comment on above:Performed By: #### CBC, CMP, PHOS, MG ####[place] [address] USACalcium [Mass/Vol]9.1 mg/dL Normal8.6-10.3The [facility] Physician GroupComment on above:Performed By: #### CBC, CMP, PHOS, MG ####[address] USAChloride [Moles/Vol]104 mmol/QZkwwib19-425Ujt [facility] Physician GroupComment on above:Performed By: #### CBC, CMP, PHOS, MG ####[address] USACO2 [Moles/Vol]21.7 mmol/XZutpnz28.0-31.0The [facility] Physician GroupComment on above:Performed By: #### CBC, CMP, PHOS, MG ####[address] [place] [address] USACreatinine [Mass/Vol]1.46 mg/dLHigh0.70-1.30The [facility] Physician GroupComment on above:Performed By: #### CBC, CMP, PHOS, MG ####[address] [place] [address] [place] Creatinine Clr Calc Ijbnzglt97.74NoNovant Health Pender Medical Center Physician GroupComment on above:Performed By: #### CBC, CMP, PHOS, MG ####[address] USAGFR/1.73 sq M.predicted MDRD (S/P/Bld) [Vol rate/Area]55.398 mL/min/{1.73_m2}NormalThe [facility] Comment on above:Performed By: #### CBC, CMP, PHOS, MG ####[place] [address] USAGlobulin (S) [Mass/Vol]3.7 g/dLNoNovant Health Pender [facility] Center Physician GroupComment on above:Performed By: #### CBC, CMP, PHOS, MG ####[place] [address] USAGlucose [Mass/Vol]167 mg/fONhio76-988Dab [facility] Comment on above:Result Comment: Random Glucose Reference Range is dependent on time and content of last meal. Glucose of more than 200 mg/dL in a nonstressed, ambulatory subject supports the diagnosis of Diabetes Mellitus. ADA recommended reference rangePerformed By: #### CBC, CMP, PHOS, MG ####[address] USAPotassium [Moles/Vol]3.9 mmol/LNormal3.5-5.1The [facility] Physician GroupComment on above:Performed By: #### CBC, CMP, PHOS, MG ####[place] [address] USAProtein [Mass/Vol]7.2 g/dLNormal6.4-8.9The [facility] Physician GroupComment on above:Performed By: #### CBC, CMP, PHOS, MG ####[facility] [place] [address] USASodium [Moles/Vol]136 mmol/EPdaquf541-593[facility] Physician GroupComment on above: Performed By: #### CBC, CMP, PHOS, MG ####[facility] [place] [address] USAUrea nitrogen [Mass/Vol]19 mg/dLNormalBingham Memorial Hospital Physician GroupComment on above:Performed By: #### CBC, CMP, PHOS, MG ####[facility] [place] [address] USAGlucose Poct Glucometerson 62-47-5891Hvnuyzx [Mass/Vol]174 mg/dLNoNovant Health [facility] Center Physician GroupComment on above:Result Comment: Random Glucose Reference Range is dependent on time and content of last meal. Glucose of more than 200 mg/dL in a nonstressed, ambulatory subject supports the diagnosis of Diabetes Evelyn litus.PERFORMED BY:[address] [place], [place] [phone] MEDICAL DIRECTORCLIFFORD LOBATO M.D.Performed By: #### GLULS ####Point of Care testing,Glucose [Mass/Vol]216 mg/dLHCA Florida [facility]ied[facility] Center Physician GroupComment on above:Result Comment: Random Glucose Reference Range is dependent on time and content of last meal. Glucose of more than 200 mg/dL in a nonstressed, ambulatory subject supports the diagnosis of Diabetes Evelyn litus.PERFORMED BY:[address] [place], [place] [phone] MEDICAL DIRECTORCLIFFORD LOBATO M.D.Performed By: #### GLULS ####Point of Care testing,Glucose [Mass/Vol]230 mg/dLHCA Florida [facility]ied[facility] Center Physician GroupComment on above:Result Comment: Random Glucose Reference Range is dependent on time and content of last meal. Glucose of more than 200 mg/dL in a nonstressed, ambulatory subject supports the diagnosis of Diabetes Evelyn litus.PERFORMED BY:[address] [place]UKULEMaryCHALINOL[place], [place] [phone] MEDICAL DIRECTORCLIFFORD LOBATO M.D.Performed By: #### GLULS ####Point of Care testing,Glucose [Mass/Vol]179 mg/dLNormalThe [facility] Physician GroupComment on above:Result Comment: Random Glucose Reference Range is dependent on time and content of last meal. Glucose of more than 200 mg/dL in a nonstressed, ambulatory subject supports the diagnosis of Diabetes Evelyn litus.PERFORMED BY:[address] AVDarrianMaryCH[place], [place] [phone] MEDICAL DIRECTORCLIFFORD LOBATO M.D.Performed By: #### GLULS ####Point of Care testing,Magnesiumon 55-78-3939Kqnsrhhfn [Mass/Vol]2.0 mg/dLNormal1.9-2.7The [facility] Physician GroupComment on above:Result Comment: PERFORMED BY:[address] SIMONSCH[place]INOLOS [place], [place] [phone] MEDICAL BRISA LOBATO M.D.Performed By: #### CBC, CMP, PHOS, MG ####[address] [facility] CARE FACILITYPhosphoruson 42-98-7150Ssltyntbt [Mass/Vol]2.5 mg/dLNormal2.5-4.5The [facility] Physician GroupComment on above:Performed By: #### CBC, CMP, PHOS, MG ####[address] Complete Blood Count Auto Diffon 77-06-1334Xwenvdxex (Bld) [#/Vol]0.1 10*3/uL Normal0.0-0.2The [facility] Physician GroupComment on above:Result Comment: PERFORMED BY:[address] GILMANItzelCHALINOLOS ANGELES, [place] [phone] MEDICAL BRISA LOBATO M.D.Performed By: #### CBC, MG, PHOS, CMP ####[place] [address] USABasophils/100 WBC (Bld)0.6 %Normal.The [facility] Comment on above:Performed By: #### CBC, MG, PHOS, CMP ####[place] [address] USAEosinophils (Bld) [#/Vol]0.2 10*3/uLNormal0.0-0.45The [facility] Physician GroupComment on above:Performed By: #### CBC, MG, PHOS, CMP ####[place] [address] USAEosinophils/100 WBC (Bld)2.7 %Normal.The [facility] Physician GroupComment on above:Performed By: #### CBC, MG, PHOS, CMP ####[place] [address] [place] Erythrocyte distribution width (RBC) [Ratio]24.0 %High12.0-14.8The [facility] Physician GroupComment on above:Performed By: #### CBC, MG, PHOS, CMP ####[place] [address] [place] Hematocrit (Bld) [Volume fraction]27.6 %Low38.8-50.0The [facility] Physician GroupComment on above:Performed By: #### CBC, MG, PHOS, CMP ####[place] [address] USAHemoglobin (Bld) [Mass/Vol]8.8 g/dLLow13.0-17.0The [facility] Physician GroupComment on above: Performed By: #### CBC, MG, PHOS, CMP ####[place] [address] USALymphocytes (Bld) [#/Vol]0.5 10*3/uLLow 1.00-4.8The [facility] Physician GroupComment on above:Performed By: #### CBC, MG, PHOS, CMP ####[place] [address] USALymphocytes/100 WBC (Bld)5.3 %Normal.The [facility] Comment on above:Performed By: #### CBC, MG, PHOS, CMP ####[address] (RBC) [Entitic mass]23.1 pgLow27.5-35.2The [facility] Physician GroupComment on above:Performed By: #### CBC, MG, PHOS, CMP ####[address] (RBC) [Entitic vol]72.1 fLLow83.5-101The [facility] Physician GroupComment on above:Performed By: #### CBC, MG, PHOS, CMP ####[place] [address] USAMean Corpuscular HGB Conc32.0 g/dLLow32.5-35.6The [facility] Physician GroupComment on above:Performed By: #### CBC, MG, PHOS, CMP ####[place] [address] USAMonocytes (Bld) [#/Vol]0.9 10*3/uLHigh0.0-0.8The [facility] Physician GroupComment on above:Performed By: #### CBC, MG, PHOS, CMP ####[place] [address] [place] Monocytes/100 WBC (Bld)10.5 %Normal.The [facility] Physician GroupComment on above:Performed By: #### CBC, MG, PHOS, CMP ####[place] [address] USANeutrophils (Bld) [#/Vol]7.3 10*3/uL Normal1.8-7.7The [facility] Physician GroupComment on above:Performed By: #### CBC, MG, PHOS, CMP ####[place] [address] USANeutrophils/100 WBC (Bld)80.9 %Normal.The [facility] Comment on above:Performed By: #### CBC, MG, PHOS, CMP ####[place] [address] USANRBC%0.0 /100{WBC}Normal0-0.5 The [facility] Physician GroupComment on above:Performed By: #### CBC, MG, PHOS, CMP ####[address] Platelet mean volume (Bld) [Entitic vol]8.8 fLNormal6.6-10.1The [facility] Physician GroupComment on above:Performed By: #### CBC, MG, PHOS, CMP ####[address] Platelets (Bld) [#/Vol]201 10*3/hWJfyrtl418-997Cnz [facility] Physician [facility] Comment on above:Performed By: #### CBC, MG, PHOS, CMP ####[place] [address] USARBC (Bld) [#/Vol]3.83 10*6/uL Low3.90-5.60The [facility] Physician GroupComment on above:Performed By: #### CBC, MG, PHOS, CMP ####[place] [address] USAWBC (Bld) [#/Vol]9.0 10*3/uLNormal4.1-10.5The [facility] Physician GroupComment on above:Performed By: #### CBC, MG, PHOS, CMP ####[address]Comprehensive Metabolic Panelon 65-67-7905Zufwavb [Mass/Vol]3.5 g/dLNormal3.5-5.7The [facility] Physician GroupComment on above:Performed By: #### CBC, MG, PHOS, CMP ####[address] Albumin/Globulin [Mass ratio]0.9 {ratio}NormalThe [facility] Comment on above:Performed By: #### CBC, MG, PHOS, CMP ####[address] [place] [address] USAALP [Catalytic activity/Vol] 367 U/XRtvj54-123Gcj [facility] Physician GroupComment on above:Performed By: #### CBC, MG, PHOS, CMP ####[address] [place] [address] USAALT [Catalytic activity/Vol]59 U/LHigh7-52The [facility] Physician GroupComment on above:Performed By: #### CBC, MG, PHOS, CMP ####[address] [address] USAAnion gap [Moles/Vol]12.6 mmol/LNormal6.0-15.0The [facility] Physician GroupComment on above:Performed By: #### CBC, MG, PHOS, CMP ####[address] [address] USAAST [Catalytic activity/Vol]52 U/LHigh 13-39The [facility] Physician GroupComment on above:Performed By: #### CBC, MG, PHOS, CMP ####[address] [address] USABilirubin [Mass/Vol]1.5 mg/dLHigh0.3-1.0The [facility] Physician GroupComment on above:Result Comment: Samples from patients who have taken Naproxen have shown spurious elevation in Total Bilirubin levels. A metabolite of Naproxen, O- desmethylnaproxen, has been shown to interfere with the Jengeovanniik-Grojennifer method for measuring Total Bilirubin.Performed By: #### CBC, MG, PHOS, CMP ####[address] [address] USACalcium [Mass/Vol]8.8 mg/dLNormal8.6-10.3The [facility] Physician GroupComment on above: Performed By: #### CBC, MG, PHOS, CMP ####[address] [address] USAChloride [Moles/Vol]104 mmol/AIddwst09-768Cfk [facility] Physician GroupComment on above:Performed By: #### CBC, MG, PHOS, CMP ####[address] [place] [address] USACO2 [Moles/Vol]23.0 mmol/GNksfdr37.0-31.0The [facility] Physician GroupComment on above:Performed By: #### CBC, MG, PHOS, CMP ####[place] [address] USACreatinine [Mass/Vol]1.70 mg/dLHigh 0.70-1.30The [facility] Physician GroupComment on above:Performed By: #### CBC, MG, PHOS, CMP ####[place] [address] USACreatinine Clr Calc Orsnrwyr48.45NoNovant Health [facility] Physician Group Comment on above:Performed By: #### CBC, MG, PHOS, CMP ####[place] [address] USAGFR/1.73 sq M.predicted MDRD (S/P/Bld) [Vol rate/Area]46.151 mL/min/{1.73_m2}NormalThe [facility] Physician GroupComment on above:Performed By: #### CBC, MG, PHOS, CMP ####[place] [address] USAGlobulin (S) [Mass/Vol]3.7 g/dLNoNovant Health [facility] Center Physician [facility] HospitalComment on above:Performed By: #### CBC, MG, PHOS, CMP ####[place] [address] USAGlucose [Mass/Vol]150 mg/cOYaex95-974Nnt [facility] Physician GroupComment on above:Result Comment: Random Glucose Reference Range is dependent on time and content of last meal. Glucose of more than 200 mg/dL in a nonstressed, ambulatory subject supports the diagnosis of Diabetes Mellitus. ADA recommended reference rangePerformed By: #### CBC, MG, PHOS, CMP ####[address] [place] [address] [place] Potassium [Moles/Vol]3.6 mmol/LNormal3.5-5.1The [facility] Physician GroupComment on above:Performed By: #### CBC, MG, PHOS, CMP ####[address] [address] USAProtein [Mass/Vol]7.2 g/dLNormal 6.4-8.9The [facility] Physician GroupComment on above:Performed By: #### CBC, MG, PHOS, CMP ####[address] [address] USASodium [Moles/Vol]136 mmol/NMgrhnh955-724Rpr [facility] Comment on above:Performed By: #### CBC, MG, PHOS, CMP ####[place] [address] USAUrea nitrogen [Mass/Vol]17 mg/dLNormal7-25The [facility] Physician GroupComment on above:Performed By: #### CBC, MG, PHOS, CMP ####[address] [address] USAGlucose Poct Glucometerson 36-38-6667Qskndct [Mass/Vol]193 mg/dL NormalThe [facility] Physician [facility] HospitalComment on above:Result Comment: Random Glucose Reference Range is dependent on time and content of last meal. Glucose of more than 200 mg/dL in a nonstressed, ambulatory subject supports the diagnosis of Diabetes Mellitus.PERFORMED BY:[address] [place], [place] [phone] MEDICAL DIRECTORCLIFFORD LOBATO M.D.Performed By: #### GLULS ####Point of Care testing, Vvbqnjo2Std3: Cleaned MeterNormHCA Florida [facility] Emergency Physician GroupComment on above: Result Comment: PERFORMED BY:[address] [place], [place] [phone] MEDICAL DIRECTORCLIFFORD LOBATO M.D. Performed By: #### GLULS ####Point of Care testing,Glucose [Mass/Vol]156 mg/dL NormalThe [facility] Physician GroupComment on above:Result Comment: Random Glucose Reference Range is dependent on time and content of last meal. Glucose of more than 200 mg/dL in a nonstressed, ambulatory subject supports the diagnosis of Diabetes Mellitus.Performed By: #### GLULS ####Point of Care testing,Gqvsvuo8Tgj3: Cleaned MeterNormHCA [facility] Emergency Physician GroupComment on above:Result Comment: PERFORMED BY:[address] LINMaryCHALINO, [place] [phone] MEDICAL DIRECTORCLIFFORD LOBATO M.D. Performed By: #### GLULS ####Point of Care testing,Glucose [Mass/Vol]185 mg/dL NormalThe [facility] Physician GroupComment on above:Result Comment: Random Glucose Reference Range is dependent on time and content of last meal. Glucose of more than 200 mg/dL in a nonstressed, ambulatory subject supports the diagnosis of Diabetes Mellitus.Performed By: #### GLULS ####Point of Care testing,Glucose [Mass/Vol]178 mg/dLHCA Florida [facility] Physician GroupComment on above:Result Comment: Random Glucose Reference Range is dependent on time and content of last meal. Glucose of more than 200 mg/dL in a nonstressed, ambulatory subject supports the diagnosis of Diabetes Mellitus.PERFORMED BY:[address] MUKULDarrianMarySHOWELL, [place] [phone] MEDICAL DIRECTORCLIFFORD LOBATO M.D.Performed By: #### GLULS ####Point of Care testing,Hep C Ab wRfx to Qnt PCRon 70-38-3264Svmvvutcf C Virus AntibodyNon-ReactiveNormalNon ReactiveThe [facility] Comment on above:Performed By: #### HCV RX PCR ####[facility] , Interpretation Hepatitis CCommentNormal.The [facility] Physician GroupComment on above:Result Comment: Not infected with HCV unless early or acute infection is suspected (which may be delayed in an immunocompromised individual), or other evidence exists to indicate HCV infection. Performed at: [facility] [place], [place] [id number] Assistant Account Manager: Uriel Borrero PhD, Phone: [phone] BY:[address] ARACELIMarySHOWELL, [place] [phone] MEDICAL DIRECTORCLIFFORD LOBATO M.D. Performed By: #### HCV RX PCR ####[facility] ,Hepatitis C virus IgG Ab [Presence] in Serum or Plasma by ImmunoassayOrdered By: Mike Burleson on 96-37-2279RHC IgG IA QlNon-ReactiveNon ReactiveTuscarawas Hospital HCV IgG IA QlHepatitis C virus IgG Ab [Presence] in Serum or Plasma by ImmunoassayNon ReactiveTuscarawas HospitalMR abdomen wo/w conon 25-36-2836MA abdomen wo/w conNormalThe [facility] Physician GroupMagnesiumon 74-58-9746Fccivksjr [Mass/Vol]1.8 mg/dLLow1.9-2.7The [facility] Group Comment on above:Result Comment: PERFORMED BY:[address] [place], [place] [phone] MEDICAL DIRECTORCLIFFORD LOBATO M.D.Performed By: #### CBC, MG, PHOS, CMP ####[address] [place] [address] USANo Panel Information Ordered By: João Powell on 50-72-7248Vdfohnm Glucose CommentGlu2: cleaned meter [facility] HospitalGlu2: cleaned meterTuscarawas HospitalNo Panel InformationOrdered By: Mike Burleson on 30-24-2679Dppsdnkmr C InterpretationComment.[facility]awas HospitalComment on above:Not infected with HCV unless early or acute infection issuspected (which may be delayed in an immunocompromisedindividual), or other evidence exists to indicate HCVinfection.Performed at: - [facility] [place], [place] [id number] Director: Uriel Borrero PhD, Phone: [phone].Tuscarawas HospitalPhosphoruson [id number] [Mass/Vol]3.4 mg/dL Normal2.5-4.5The [facility] Physician GroupComment on above:Performed By: #### CBC, MG, PHOS, CMP ####[address] [address] USAUS liveron [id number] [facility] Physician [facility] Complete Blood Count Auto Diffon [id number] (Bld) [#/Vol]0.0 10*3/uL Normal0.0-0.2The [facility] Physician [facility] County HospitalComment on above:Result Comment: PERFORMED BY:[address]CH[address], [place] [phone] MEDICAL DIRECTORCLIFFORD LOBATO M.D.Performed By: #### CMP, MG, PHOS, GGT, CBC ####[place] [id number] USABasophils/100 WBC (Bld)0.3 %Normal.The [facility] Physician GroupComment on above:Performed By: #### CMP, MG, PHOS, GGT, CBC ####[place] [address] [place] Eosinophils (Bld) [#/Vol]0.1 10*3/uLNormal0.0-0.45The [facility] Physician [facility] Comment on above:Performed By: #### CMP, MG, PHOS, GGT, CBC ####[place] [id number] USAEosinophils/100 WBC (Bld)0.8 %Normal.The [facility] Physician [facility] HospitalComment on above:Performed By: #### CMP, MG, PHOS, GGT, CBC ####[place] [address] USAErythrocyte distribution width (RBC) [Ratio]23.4 % High12.0-14.8The [facility] Physician GroupComment on above:Performed By: #### CMP, MG, PHOS, GGT, CBC ####[place] [address] USAHematocrit (Bld) [Volume fraction]25.8 %Low38.8-50.0 The [facility] Physician GroupComment on above:Performed By: #### CMP, MG, PHOS, GGT, CBC ####[place] [address] USAHemoglobin (Bld) [Mass/Vol]8.4 g/dLLow13.0-17.0The [facility] Comment on above:Performed By: #### CMP, MG, PHOS, GGT, CBC ####[place] [address] USALymphocytes (Bld) [#/Vol]0.7 10*3/uLLow1.00-4.8The [facility] Physician GroupComment on above: Performed By: #### CMP, MG, PHOS, GGT, CBC ####[place] [address] USALymphocytes/100 WBC (Bld)4.9 %Normal. The [facility] Physician GroupComment on above:Performed By: #### CMP, MG, PHOS, GGT, CBC ####[address] (RBC) [Entitic mass]23.1 pgLow27.5-35.2The [facility] Comment on above:Performed By: #### CMP, MG, PHOS, GGT, CBC ####[address]V (RBC) [Entitic vol]71.2 fLLow83.5-101The [facility] Physician GroupComment on above:Performed By: #### CMP, MG, PHOS, GGT, CBC ####[place] [address] USAMean Corpuscular HGB Conc32.5 g/tYGqpjau87.5-35.6The [facility] Physician GroupComment on above:Performed By: #### CMP, MG, PHOS, GGT, CBC ####[place] [address] [place] Monocytes (Bld) [#/Vol]1.5 10*3/uLHigh0.0-0.8The [facility] Comment on above:Performed By: #### CMP, MG, PHOS, GGT, CBC ####[place] [address] USAMonocytes/100 WBC (Bld)10.6 %Normal.The [facility] Physician GroupComment on above:Performed By: #### CMP, MG, PHOS, GGT, CBC ####[place] [address] USANeutrophils (Bld) [#/Vol]11.4 10*3/uLHigh1.8-7.7The [facility] Physician GroupComment on above:Performed By: #### CMP, MG, PHOS, GGT, CBC ####[address] Neutrophils/100 WBC (Bld)83.4 %Normal.The [facility] Physician GroupComment on above:Performed By: #### CMP, MG, PHOS, GGT, CBC ####[place] [address] USANRBC%0.2 /100{WBC}Normal0-0.5The [facility] Physician GroupComment on above:Performed By: #### CMP, MG, PHOS, GGT, CBC ####[address] Platelet mean volume (Bld) [Entitic vol]8.9 fLNormal6.6-10.1The [facility] Physician GroupComment on above:Performed By: #### CMP, MG, PHOS, GGT, CBC ####[place] [address] [place] Platelets (Bld) [#/Vol]205 10*3/uYKzqzre367-559Snq [facility] Comment on above:Performed By: #### CMP, MG, PHOS, GGT, CBC ####[place] [address] USARBC (Bld) [#/Vol]3.62 10*6/uLLow3.90-5.60The [facility] Physician GroupComment on above:Performed By: #### CMP, MG, PHOS, GGT, CBC ####[address] [address] USAWBC (Bld) [#/Vol]13.7 10*3/uLHigh4.1-10.5The [facility] Physician GroupComment on above:Performed By: #### CMP, MG, PHOS, GGT, CBC ####[address] [address] [facility] Comprehensive Metabolic Panelon 65-85-5376Jqvocgu [Mass/Vol]3.4 g/dLLow3.5-5.7 The [facility] Physician GroupComment on above:Performed By: #### CMP, MG, PHOS, GGT, CBC ####[place] [address] USAAlbumin/Globulin [Mass ratio]1.0 {ratio}NormalThe [facility] Comment on above:Performed By: #### CMP, MG, PHOS, GGT, CBC ####[address] [address] USAALP [Catalytic activity/Vol]426 U/CFikj75-425Vqt [facility] Physician GroupComment on above: Performed By: #### CMP, MG, PHOS, GGT, CBC ####[place] [address] USAALT [Catalytic activity/Vol]78 U/LHigh 7-52The [facility] Physician GroupComment on above:Performed By: #### CMP, MG, PHOS, GGT, CBC ####[address] [address] USAAnion gap [Moles/Vol]14.5 mmol/LNormal6.0-15.0The [facility] Physician GroupComment on above:Performed By: #### CMP, MG, PHOS, GGT, CBC ####[place] [address] USAAST [Catalytic activity/Vol]92 U/RMpvc38-90Qwn [facility] Physician [facility] HospitalComment on above: Performed By: #### CMP, MG, PHOS, GGT, CBC ####[place] [address] USABilirubin [Mass/Vol]2.2 mg/dLHigh 0.3-1.0The [facility] Physician [facility] HospitalComment on above:Result Comment: Samples from patients who have taken Naproxen have shown spurious elevation in Total Bilirubin levels. A metabolite of Naproxen, O-desmethylnaproxen, has been shown to interfere with the Jendrannaleeik-Grof method for measuring Total Bilirubin. Performed By: #### CMP, MG, PHOS, GGT, CBC ####[place] [address] USACalcium [Mass/Vol]8.3 mg/dLLow8.6-10.3 The [facility] Physician GroupComment on above:Performed By: #### CMP, MG, PHOS, GGT, CBC ####[place] [address] USAChloride [Moles/Vol]102 mmol/UChtavb09-998Oaw [facility] Physician [facility] Comment on above:Performed By: #### CMP, MG, PHOS, GGT, CBC ####[place] [address] USACO2 [Moles/Vol]21.8 mmol/QMmrbft63.0-31.0The [facility] Physician GroupComment on above:Performed By: #### CMP, MG, PHOS, GGT, CBC ####[place] [address] USACreatinine [Mass/Vol]1.81 mg/dLHigh0.70-1.30The [facility] Physician GroupComment on above:Performed By: #### CMP, MG, PHOS, GGT, CBC ####[place] [address] [place] Creatinine Clr Calc Bzojkpay55.38NormOhioHealth Shelby Hospitale [facility] Physician GroupComment on above:Performed By: #### CMP, MG, PHOS, GGT, CBC ####[place] [address] USAGFR/1.73 sq M.predicted MDRD (S/P/Bld) [Vol rate/Area]42.806 mL/min/{1.73_m2}NormalThe [facility] Comment on above:Performed By: #### CMP, MG, PHOS, GGT, CBC ####[place] [address] USAGlobulin (S) [Mass/Vol]3.3 g/dLNormalThe [facility] Physician GroupComment on above:Performed By: #### CMP, MG, PHOS, GGT, CBC ####[place] [address] USAGlucose [Mass/Vol]141 mg/kRWzjc58-114Kpw [facility] Physician GroupComment on above:Result Comment: Random Glucose Reference Range is dependent on time and content of last meal. Glucose of more than 200 mg/dL in a nonstressed, ambulatory subject supports the diagnosis of Diabetes Mellitus. ADA recommended reference rangePerformed By: #### CMP, MG, PHOS, GGT, CBC ####[place] [address] [place] Potassium [Moles/Vol]3.3 mmol/LLow3.5-5.1The [facility] Physician GroupComment on above:Performed By: #### CMP, MG, PHOS, GGT, CBC ####[place] [address] USAProtein [Mass/Vol]6.7 g/dLNormal 6.4-8.9The [facility] Physician GroupComment on above:Performed By: #### CMP, MG, PHOS, GGT, CBC ####[place] [address] USASodium [Moles/Vol]135 mmol/LSignificant change vdec937-718Ytm [facility] Physician GroupComment on above:Performed By: #### CMP, MG, PHOS, GGT, CBC ####[place] [address] USAUrea nitrogen [Mass/Vol]16 mg/dLNormal7-25The [facility] Physician GroupComment on above:Performed By: #### CMP, MG, PHOS, GGT, CBC ####[address] [address] USAGamma Glutamyl Transpeptidaseon 38-67-1228Rfjpnfl [Catalytic activity/Vol]176 U/LHighMartin Memorial Health Systems Physician GroupComment on above:Result Comment: PERFORMED BY:[place] [address] [address] [place]Mary[place]INOL[place], [place] [phone] MEDICAL DIRECTORCLIFFORD LOBATO M.D.Performed By: #### CMP, MG, PHOS, GGT, CBC ####[address] [address] USAGamma glutamyl transferase [Enzymatic activity/volume] in Serum or PlasmaOrdered By: João Powell on 09-85-6088Uzbdk glutamyl transferase [Catalytic activity/Vol]176 U/LHigh [facility]carawas HospitalGamma glutamyl transferase [Catalytic activity/Vol]Gamma glutamyl transferase [Enzymatic activity/volume] in Serum or PlasmaRockefeller Neuroscience Institute Innovation CenterTuscarawas HospitalGlucose Poct Glucometerson 93-74-7427Lgbzyqt3Xps2: Cleaned [facility] Physician [facility] HospitalComment on above:Result Comment: PERFORMED BY:[place] [address] [address] LINMaryCHALINOLOS [place], [place] [phone] MEDICAL DIRECTORCLIFFORD LOBATO M.D.Performed By: #### GLULS ####Point of Care testing,Glucose [Mass/Vol]133 mg/dLHCA Florida Oviedo [facility] Center Physician GroupComment on above:Result Comment: Random Glucose Reference Range is dependent on time and content of last meal. Glucose of more than 200 mg/dL in a nonstressed, ambulatory subject supports the diagnosis of Diabetes Mellitus.Performed By: #### GLULS ####Point of Care testing,Qgqrszi0Voq5: Cleaned MeterHCA Florida Oviedo Medical Center Physician GroupComment on above:Result Comment: PERFORMED BY:[place] [address] [address] [place], [place] [phone] MEDICAL DIRECTORCLIFFORD LOBATO M.D. Performed By: #### GLULS ####Point of Care testing,Glucose [Mass/Vol]294 mg/dL NormalMartin Memorial Health Systems Physician GroupComment on above:Result Comment: Random Glucose Reference Range is dependent on time and content of last meal. Glucose of more than 200 mg/dL in a nonstressed, ambulatory subject supports the diagnosis of Diabetes Mellitus.Performed By: #### GLULS ####Point of Care testing,Glucose [Mass/Vol]352 mg/dLNoNovant Health Pender Medical Center Physician GroupComment on above:Result Comment: Random Glucose Reference Range is dependent on time and content of last meal. Glucose of more than 200 mg/dL in a nonstressed, ambulatory subject supports the diagnosis of Diabetes Mellitus.PERFORMED BY:[place] [address] [address] [place], [place] [phone] MEDICAL DIRECTORCLIFFORD LOBATO M.D.Performed By: #### GLULS ####Point of Care testing,Glucose [Mass/Vol]174 mg/dLNoNovant Health Pender Medical Center Physician GroupComment on above:Result Comment: Random Glucose Reference Range is dependent on time and content of last meal. Glucose of more than 200 mg/dL in a nonstressed, ambulatory subject supports the diagnosis of Diabetes Evelyn litus.PERFORMED BY:[place] [address] [address] [place], [place] [phone] MEDICAL BRISA LOBATO M.D.Performed By: #### GLULS ####Point of Care testing,Magnesiumon 46-27-1593Qysbtxpuu [Mass/Vol]1.4 mg/dLLow1.9-2.7The [facility] Physician GroupComment on above:Result Comment: PERFORMED BY:[place] [address] [address] [place], [place] [phone] MEDICAL BRISA LOBATO M.D.Performed By: #### CMP, MG, PHOS, GGT, CBC ####[address] [place] [address] TFIO-gzerwt-V-Aspartate IgG, Seron 03-10-2024 O-xndcms-WEvparaqes IgG, SerumNegativeNormalNegativeThe [facility] Physician GroupComment on above:Result Comment: This test was developed and its performance characteristics determined by [employer]. It has not been cleared or approved by the Food and Drug Administration. The [facility]-sponsored ExTINGUISH Trial (activity and safety of Inebilizumab in anti-NMDAR encephalitis) is actively recruiting patients. You may consider enrolling your patient in the clinical trial if the result of this test is positive. To learn more, or to refer your patient, call 264- [phone] ([phone], study hotline) or see ClinicalTrials.gov (study ID, [id number]). Performed at: [employer] [id number] Assistant Account Manager: Chrissy Wong MD, Phone: [phone] BY:[address]AR[address] SIMONSSHOWELL, [place] [phone] MEDICAL DIRECTORCLIFFORD LOBATO M.D.Performed By: #### NMDA IGG SERUM ####[facility] ,No Panel InformationOrdered By: Job James on 62-28-1834U-Xqqjqy-K-Uidrnwpid Recept IgG AbNegativeNegWayne HospitalComment on above:This test was developed and its performance characteristicsdetermined by [employer]. It has not been cleared orapproved by the Food and Drug Administration.The [facility]- sponsored ExTINGUISH Trial (activity and safety ofInebilizumab in anti-NMDAR encephalitis) is activelyrecruiting patients. You may consider enrolling yourpatient in the clinical trial if the result of this test ispositive. To learn more, or to refer your patient, call [phone] ([phone], study hotline) or seeinicalTrials.gov (study ID, [id number]).Performed at: [facility] [facility] [address] [id number] Director: Chrissy Wong MD, Phone: [phone]yMercer County Community Hospital Phosphoruson 41-73-8776Ymhrjgqin [Mass/Vol]3.1 mg/dLNormal2.5-4.5The [facility] Physician GroupComment on above:Performed By: #### CMP, MG, PHOS, GGT, CBC ####[address] Complete Blood Count Auto Diffon 18-58-0538Wfosxufrv (Bld) [#/Vol]0.1 10*3/uL Normal0.0-0.2The [facility] Physician GroupComment on above:Result Comment: PERFORMED BY:[address], [place] [phone] MEDICAL DIRECTORCLIFFORD LOBATO M.D.Performed By: #### CBC, CMP, MG, PHOS ####[place] [address] USABasophils/100 WBC (Bld)1.2 %Normal.The [facility] Physician Group Comment on above:Performed By: #### CBC, CMP, MG, PHOS ####[place] [address] USAEosinophils (Bld) [#/Vol]0.2 10*3/uLNormal0.0-0.45The [facility] Physician GroupComment on above:Performed By: #### CBC, CMP, MG, PHOS ####[place] [address] USAEosinophils/100 WBC (Bld)2.5 %Normal.The [facility] Physician GroupComment on above:Performed By: #### CBC, CMP, MG, PHOS ####[address] Erythrocyte distribution width (RBC) [Ratio]21.9 %High12.0-14.8The [facility] Physician GroupComment on above:Performed By: #### CBC, CMP, MG, PHOS ####[address] Hematocrit (Bld) [Volume fraction]27.8 %Low38.8-50.0The [facility] Physician GroupComment on above:Performed By: #### CBC, CMP, MG, PHOS ####[place] [address] USAHemoglobin (Bld) [Mass/Vol]8.9 g/dLLow13.0-17.0The [facility] Physician GroupComment on above: Performed By: #### CBC, CMP, MG, PHOS ####[place] [address] USALymphocytes (Bld) [#/Vol]1.8 10*3/uLNormal 1.00-4.8The [facility] Physician GroupComment on above:Performed By: #### CBC, CMP, MG, PHOS ####[place] [address] USALymphocytes/100 WBC (Bld)20.9 %Normal.The [facility]ician [facility] Comment on above:Performed By: #### CBC, CMP, MG, PHOS ####[address] StreetMCH (RBC) [Entitic mass]22.7 pgLow27.5-35.2The [facility] Physician GroupComment on above:Performed By: #### CBC, CMP, MG, PHOS ####[address] StreetMCV (RBC) [Entitic vol]70.7 fLLow83.5-101The [facility] Physician GroupComment on above:Performed By: #### CBC, CMP, MG, PHOS ####[place] [address] USAMean Corpuscular HGB Conc32.1 g/dLLow32.5-35.6The [facility] Physician GroupComment on above:Performed By: #### CBC, CMP, MG, PHOS ####[place] [address] USAMonocytes (Bld) [#/Vol]1.0 10*3/uLHigh0.0-0.8The [facility] Physician GroupComment on above:Performed By: #### CBC, CMP, MG, PHOS ####[address] Monocytes/100 WBC (Bld)10.9 %Normal.The [facility] Physician GroupComment on above:Performed By: #### CBC, CMP, MG, PHOS ####[place] [address] USANeutrophils (Bld) [#/Vol]5.6 10*3/uL Normal1.8-7.7The [facility] Physician GroupComment on above:Performed By: #### CBC, CMP, MG, PHOS ####[place] [address] USANeutrophils/100 WBC (Bld)64.5 %Normal.The [facility] Comment on above:Performed By: #### CBC, CMP, MG, PHOS ####[place] [address] USANRBC%0.2 /100{WBC}Normal0-0.5 The [facility] Physician GroupComment on above:Performed By: #### CBC, CMP, MG, PHOS ####[address] Platelet mean volume (Bld) [Entitic vol]8.7 fLNormal6.6-10.1The [facility] Physician GroupComment on above:Performed By: #### CBC, CMP, MG, PHOS ####[place] [address] [place] Platelets (Bld) [#/Vol]265 10*3/pRQlwlbo223-950Kwr [facility] Comment on above:Performed By: #### CBC, CMP, MG, PHOS ####[place] [address] USARBC (Bld) [#/Vol]3.93 10*6/uL Normal3.90-5.60The [facility] Physician GroupComment on above:Performed By: #### CBC, CMP, MG, PHOS ####[place] [address] USAWBC (Bld) [#/Vol]8.8 10*3/uLNormal4.1-10.5The [facility] Physician GroupComment on above:Performed By: #### CBC, CMP, MG, PHOS ####[place] [address] USAComprehensive Metabolic Panelon 81-49-1675Koxtkxh [Mass/Vol]3.5 g/dLNormal3.5-5.7The [facility] Physician GroupComment on above:Performed By: #### CBC, CMP, MG, PHOS ####[place] [address] [place] Albumin/Globulin [Mass ratio]1.0 {ratio}NormalThe [facility] Comment on above:Performed By: #### CBC, CMP, MG, PHOS ####[place] [address] USAALP [Catalytic activity/Vol] 110 U/TTlmj20-891Gqo [facility] Physician GroupComment on above:Performed By: #### CBC, CMP, MG, PHOS ####[place] [address] USAALT [Catalytic activity/Vol]10 U/LNormal7-52The [facility] Physician GroupComment on above:Performed By: #### CBC, CMP, MG, PHOS ####[place] [address] USAAnion gap [Moles/Vol]14.9 mmol/LNormal6.0-15.0The [facility] Physician GroupComment on above:Performed By: #### CBC, CMP, MG, PHOS ####[place] [address] USAAST [Catalytic activity/Vol]14 U/L Rxwtmk15-60Jil [facility] Physician GroupComment on above:Performed By: #### CBC, CMP, MG, PHOS ####[place] [address] USABilirubin [Mass/Vol]0.5 mg/dLNormal0.3-1.0The [facility] Comment on above:Performed By: #### CBC, CMP, MG, PHOS ####[place] [address] USACalcium [Mass/Vol]9.0 mg/dL Normal8.6-10.3The [facility] Physician GroupComment on above:Performed By: #### CBC, CMP, MG, PHOS ####[place] [address] USAChloride [Moles/Vol]110 mmol/IAujy41-202Piu [facility] Physician GroupComment on above:Performed By: #### CBC, CMP, MG, PHOS ####[place] [address] USACO2 [Moles/Vol]20.8 mmol/LLow21.0-31.0The [facility] Physician GroupComment on above:Performed By: #### CBC, CMP, MG, PHOS ####[place] [address] USACreatinine [Mass/Vol]1.80 mg/dLHigh0.70-1.30The [facility] Physician GroupComment on above:Performed By: #### CBC, CMP, MG, PHOS ####[place] [address] [place] Creatinine Clr Calc Epobecmf13.64NoNovant Health [facility] Center Physician GroupComment on above:Performed By: #### CBC, CMP, MG, PHOS ####[place] [address] USAGFR/1.73 sq M.predicted MDRD (S/P/Bld) [Vol rate/Area]43.092 mL/min/{1.73_m2}NormalThe [facility] Comment on above:Performed By: #### CBC, CMP, MG, PHOS ####[place] [address] USAGlobulin (S) [Mass/Vol]3.5 g/dLNoNovant Health Pender [facility] Center Physician GroupComment on above:Performed By: #### CBC, CMP, MG, PHOS ####[address] [address] USAGlucose [Mass/Vol]91 mg/tQFxpeyi80-892Fau [facility] Physician [facility] Comment on above:Result Comment: Random Glucose Reference Range is dependent on time and content of last meal. Glucose of more than 200 mg/dL in a nonstressed, ambulatory subject supports the diagnosis of Diabetes Mellitus. ADA recommended reference rangePerformed By: #### CBC, CMP, MG, PHOS ####[place] [address] [place] [address] USAPotassium [Moles/Vol]3.7 mmol/LNormal3.5-5.1The [facility] Physician GroupComment on above:Performed By: #### CBC, CMP, MG, PHOS ####[address] [address] USAProtein [Mass/Vol]7.0 g/dLNormal6.4-8.9The [facility] Physician GroupComment on above:Performed By: #### CBC, CMP, MG, PHOS ####[address] [address] USASodium [Moles/Vol]142 mmol/IKipisd155-606Tlq [facility] Physician GroupComment on above: Performed By: #### CBC, CMP, MG, PHOS ####[address] [address] USAUrea nitrogen [Mass/Vol]19 mg/dLNormal7-25The [facility] Physician GroupComment on above:Performed By: #### CBC, CMP, MG, PHOS ####[address] [address] USAGlucose Poct Glucometerson 19-06-4831Dqlkcsv [Mass/Vol]386 mg/dLNormalThe [facility] Physician GroupComment on above:Result Comment: Random Glucose Reference Range is dependent on time and content of last meal. Glucose of more than 200 mg/dL in a nonstressed, ambulatory subject supports the diagnosis of Diabetes Evelyn litus.PERFORMED BY:[address], [place] [phone] MEDICAL DIRECTORCLIFFORD LOBATO M.D.Performed By: #### GLULS ####Point of Care testing,Bblockn7Qvc4: Cleaned MeterNoNovant Health Pender Medical Center Physician [facility] HospitalComment on above:Result Comment: PERFORMED BY:[place] [address] [address] [place], [place] [phone] MEDICAL DIRECTORCLIFFORD LOBATO M.D.Performed By: #### GLULS ####Point of Care testing, Glucose [Mass/Vol]128 mg/dLHCA Florida Oviedo Medical Center Physician GroupComment on above: Result Comment: Random Glucose Reference Range is dependent on time and content of last meal. Glucose of more than 200 mg/dL in a nonstressed, ambulatory subject supports the diagnosis of Diabetes Mellitus.Performed By: #### GLULS ####Point of Care testing,Glucose [Mass/Vol]119 mg/dLHCA Florida [facility]vied[facility] Center Physician GroupComment on above:Result Comment: Random Glucose Reference Range is dependent on time and content of last meal. Glucose of more than 200 mg/dL in a nonstressed, ambulatory subject supports the diagnosis of Diabetes Evelyn litus.PERFORMED BY:[place] [address] [address] [place], [place] [phone] MEDICAL BRISA LOBATO M.D.Performed By: #### GLULS ####Point of Care testing,Magnesiumon 21-96-9242Xhqghnjhu [Mass/Vol]1.5 mg/dLLow1.9-2.7The [facility] Physician GroupComment on above:Result Comment: PERFORMED BY:[place] [address] [address] [place], [place] [phone] MEDICAL DIRECTORCLIFFORD LOBATO M.D.Performed By: #### CBC, CMP, MG, PHOS ####[address] Narvaezcone health wesley [place] [address] USAPhosphoruson 55-63-5448Xpocutcae [Mass/Vol]3.1 mg/dLNormal2.5-4.5The [facility] Physician GroupComment on above:Performed By: #### CBC, CMP, MG, PHOS ####[facility] [address] [place] [address] USAUS renal BIon 78-49-5100PV renal BINormalThe [facility] Physician [facility] HospitalXR elbow LT 2Von 08-09-1924XD elbow LT 2VNormalThe [facility] Physician [facility] HospitalActivated partial thromboplastin time (aPTT) in platelet poor plasma by coagulation a Ordered By: Bonilla Rubin on 81-10-9721gSPB Coag (PPP) [Time]29.6 s25.1-36.5 [facility]awas HospitalComment on above:A hematocrit value greater than 55% may lead to inaccurate results in coagulation testing. Patientshaving hematocrit values >55% require a special collection tube for coagulation studies. Please contact the laboratory at [phone] for redraw instructions. Alanine aminotransferase [Enzymatic activity/volume] in Serum or PlasmaOrdered By: Bonilla Rubin on 30-56-5018OES [Catalytic activity/Vol]13 U/LNormal7-52 [facility]awas HospitalComment on above:Performed By: #### PTT, HS TROP, PT, CMP, CK, CBC ####[facility] [address] [place] [address] USAAlbumin [Mass/volume] in Serum or Plasma by Bromocresol green (BCG) dye binding methoOrdered By: Bonilla Rubin on 85-19-6346Wubctyx BCG dye [Mass/Vol]3.8 g/dL3.5-5.7FWhite HospitalAlkaline phosphatase [Enzymatic activity/volume] in Serum or PlasmaOrdered By: Bonilla Rubin on 63-87-1980GLW [Catalytic activity/Vol]116 U/HWfyu71-751GggyejmjdTuscarawas HospitalComment on above:Performed By: #### PTT, HS TROP, PT, CMP, CK, CBC ####[facility] [address] [place] [address] USAAmmonia [Moles/volume] in PlasmaOrdered By: João Powell on 03-08-2024 Ammonia (P) [Moles/Vol]33 umol/IJvnonm97-86MpkhxqrudThe [facility] Comment on above:Result Comment: PERFORMED BY:[facility] [place], [place] [phone] MEDICAL DIRECTORCLIFFORD LOBATO M.D.Performed By: #### AMM ####[facility] [address] [place] [address] USAAmmonia (P) [Moles/Vol]Ammonia [Moles/volume] in Yqlzbx36-08XkszssfveTuscarawas HospitalAmphetamine Screen Ql (U)Ordered By: Bonilla Rubin on 67-40-9871Hcstqacurqox Ql (U)Amphetamines screenNegativeTuscarawas HospitalAmphetamines Ql (U)Negative NegativeTuscarawas HospitalAppearance of UrineOrdered By: Bonilla Rubin on 40-19-4953Mqezjkozan (U)Urine appearanceCleOhio State East HospitalArterial Blood Gason 60-13-1195MSD Base Excess-1.4 mmol/LNormal -3.0-3.0The [facility] Physician GroupComment on above:Performed By: #### ABG ####Point of Care testing,ABG Frac Inspired O221 %NormalThe [facility] Hospital Physician GroupComment on above:Performed By: #### ABG ####Point of Care testing,ABG Oxygen Content6.4 mmol/LLow6.6-9.7The [facility] Physician GroupComment on above: Performed By: #### ABG ####Point of Care testing,ABG Oxygen Ojapdvcswe79.1 % Ddhygl08.0-100.0The [facility] Physician GroupComment on above:Performed By: #### ABG ####Point of Care testing,ABG PFN082.3 mm[Hg]Low35.0-45.0The [facility] Physician GroupComment on above:Performed By: #### ABG ####Point of Care testing,ABG PH7.84Tufczy7.35-7.45The [facility] Physician GroupComment on above: Performed By: #### ABG ####Point of Care testing,ABG PO292.6 mm[Hg]Normal 80.0-100.0The [facility] Physician GroupComment on above:Performed By: #### ABG ####Point of Care testing,Respiratory CriticalHCA Florida Ovied[facility] Physician [facility]ipp[facility] County HospitalComment on above:Result Comment: Critical Value called on: 03/08/2024 at 15:16PERFORMED BY:[address] [place], [place] [phone] MEDICAL DIRECTORCLIFFORD LOBATO M.D.Performed By: #### ABG ####Point of Care testing,VBG Draw SiteLeft RadialHCA Florida Oviedo Medical Center Physician [facility] County HospitalComment on above:Performed By: #### ABG ####Point of Care testing,Arterial Blood GasOrdered By: Bonilla Rubin on 98-93-9977NN2 [Moles/Vol] 23.2 mmol/AErgszy80.0-27.0Tuscarawas HospitalComment on above: Performed By: #### ABG ####Point of Care testing,HCO3 (Bld) [Moles/Vol]22.2 mmol/LLow23.0-29.0Tuscarawas HospitalComment on above:Performed By: #### ABG ####Point of Care testing,Aspartate aminotransferase [Enzymatic activity/volume] in Serum or PlasmaOrdered By: Bonilla Rubin on 80-36-0632SGS [Catalytic activity/Vol]14 U/ISsymsh26-74OpubmoubaTuscarawas Hospital Comment on above:Performed By: #### PTT, HS TROP, PT, CMP, CK, CBC ####[facility] [address] [place] [address] USAAutomated basophil % Ordered By: Bonilla Rubin on 74-98-3265Vciclikxq/100 WBC (Bld)1.0 %Normal. [facility]as HospitalComment on above:Performed By: #### PTT, HS TROP, PT, CMP, CK, CBC ####[facility] [address] [place] [address] USAAutomated basophil countOrdered By: Bonilla Rubin on 15-84-7123Dcjygnkqk (Bld) [#/Vol]0.1 10*3/uLNormal0.0-0.2Firelands Regional Medical CenterComment on above:Result Comment: PERFORMED BY:[address] [place], [place] [phone] MEDICAL DIRECTORCLIFFORD LOBATO M.D.Performed By: #### PTT, HS TROP, PT, CMP, CK, CBC ####[place] [id number] [facility] Automated blood monocyte countOrdered By: Bonilla Rubin on 68-13-3206Jzxbiuoxy (Bld) [#/Vol]1.2 10*3/uLHigh0.0-0.8T[facility]carawas HospitalComment on above:Performed By: #### PTT, HS TROP, PT, CMP, CK, CBC ####[place] [address] USAAutomated eosinophil %Ordered By: Bonilla Rubin on 03-09-6619Xfuikzbfeyu/100 WBC (Bld)3.3 %Normal.Tuscarawas HospitalComment on above:Performed By: #### PTT, HS TROP, PT, CMP, CK, CBC ####[place] [address] USAAutomated eosinophil countOrdered By: Bonilla Rubin on 03-08-2024 Eosinophils (Bld) [#/Vol]0.3 10*3/uLNormal0.0-0.45T[facility]carawas HospitalComment on above:Performed By: #### PTT, HS TROP, PT, CMP, CK, CBC ####[place] [id number] [place] Automated monocyte %Ordered By: Boinlla Rubin on 61-12-3739Tcscpvqye/100 WBC (Bld)13.2 %Normal.Tuscarawas HospitalComment on above:Performed By: #### PTT, HS TROP, PT, CMP, CK, CBC ####[place] [id number] USAAutomated neutrophil %Ordered By: Bonilla Rubin on 10-65-9380Bpgrigzodwg/100 WBC (Bld)69.4 %Normal.Tuscarawas HospitalComment on above:Performed By: #### PTT, HS TROP, PT, CMP, CK, CBC ####[facility] [id number] Bacterial blood cultureOrdered By: Bonilla Rubin on 60-26-4374Pouovozx identified Cx Nom (Bld)Bacterial blood cultureTuscarawas Hospital Bacteria identified Cx Nom (Bld)Bacterial blood cultureTuscarawas HospitalBacteria identified Cx Nom (Bld)NO GROWTH 5 DAYSTuscarawas HospitalBacteria identified Cx Nom (Bld)NO GROWTH 5 DAYSTuscarawas HospitalBarbiturates [Presence] in Urine by Screen methodOrdered By: Bonilla Rubin on 56-91-7430Fydqkkgksbzs Screen Ql (U)NegativeNegative [facility]as HospitalBarbiturates Screen Ql (U)Barbiturates [Presence] in Urine by Screen methodNegativeTuscarawas Hospital Benzodiazepines Screen Ql (U)Ordered By: Bonilla Rubin on 03-08-2024 Benzodiazepines Ql (U)NegativeNegativeTuscarawas Hospital Benzodiazepines Ql (U)Benzodiazepines [Presence] in Urine by Screen method NegativeTuscarawas HospitalBenzoylecgonine [Presence] in Urine by Screen methodOrdered By: Bonilla Rubin on 22-45-4086Epqpbmnplqkuuda Screen Ql (U)NegativeNegativeTuscarawas HospitalBenzoylecgonine Screen Ql (U)Benzoylecgonine [Presence] in Urine by Screen methodNegativeTuscarawas HospitalBilirubin Test strip Ql (U)Ordered By: Bonilla Rubin on 75-93-8710Bzrgjarxw Ql (U)NegativeNegativeTuscarawas Hospital Bilirubin Ql (U)Bilirubin.total [Presence] in Urine by Test stripNegative [facility]car[facility]as HospitalBilirubin.total [Mass/volume] in Serum or PlasmaOrdered By: Bonilla Rubin on 41-00-9327Hvajsrsfz [Mass/Vol]0.4 mg/dLNormal 0.3-1.0T[facility]carawas HospitalComment on above:Performed By: #### PTT, HS TROP, PT, CMP, CK, CBC ####[address] [address] USABioFire Not Detectedon 10-46-0732CijMkno Not DetectedNot detectedNormalNot DetecteThe [facility] Physician [facility] County HospitalComment on above:Result Comment: This is a duplicate RP2.1 COVID (PCR) result to be used for statistical tracking purpose only.PERFORMED BY:[address], [place] [phone] MEDICAL DIRECTORCLIFFORD LOBATO M.D. Performed By: #### RESP PANEL UPP., BIOFIRECOVNOTDE ####[address] [address] USABlood Cultureon 03-08-2024 Bacteria identified Cx Nom (Bld)NO GROWTH 5 DAYS PERFORMED BY: [address] [address] PATHOLOGIST CURING PRESS OPERATOR CLIFFORD LOBATO M.D.NormalMartin Memorial Health Systems Physician [facility] County HospitalComment on above:Performed By: #### CUBLD, LACTIC ####[address] [address] USABacteria identified Cx Nom (Bld)NO GROWTH 5 DAYS PERFORMED BY: [place] [id number] PATHOLOGIST CURING PRESS OPERATOR CLIFFORD LOBATO M.D.[facility] Physician [facility] County HospitalComment on above:Performed By: #### CUBLD, LACTIC ####[place] [id number] USACOVID-19 Detected/Not DetectedOrdered By: Bonilla Rubin on 55-96-5835SEGA-CoV-2 (COVID-19) RNA NELLY+non-probe Ql (Nph)Not detectedNot DetectBerger HospitalComment on above:This is a duplicate RP2.1 COVID (PCR) result to be used for statistical tracking purpose only.CT angio headon 41-39-9305HE angio headNormalThe [facility] Physician [facility] Calcium [Mass/volume] in Serum or PlasmaOrdered By: Bonilla Rubin on 03-08-2024 Calcium [Mass/Vol]9.6 mg/dLNormal8.6-10.3FWhite Hospital Comment on above:Performed By: #### PTT, HS TROP, PT, CMP, CK, CBC ####[facility] [place] [address] USACannabinoids [Presence] in Urine by Screen methodOrdered By: Bonilla Rubin on 03-08-2024 Cannabinoids Screen Ql (U)NegativeNegWayne Hospital Comment on above:These are unconfirmed results and should not be used for legal purposes. Drug Cut-Off Concentration: AMPH 1000 ng/mL JERMAINE 200 ng/mL SAVANNAH 200 ng/mL COCM 300 ng/mL OP 300 ng/mL PCP 25 ng/mL THC 20 ng/mLCannabinoids Screen Ql (U)Cannabinoids [Presence] in Urine by Screen methodNegativeTuscarawas HospitalComment on above:These are unconfirmed results and should not be used for legal purposes. Drug Cut-Off Concentration: AMPH 1000 ng/mL JERMAINE 200 ng/mL SAVANNAH 200 ng/mL COCM 300 ng/mL OP 300 ng/mL PCP 25 ng/mL THC 20 ng/mLCapillary blood glucose measurement by glucometer (mass/volume)Ordered By: Bonilla Rubin on 32-35-8214Ryyoxsc [Mass/Vol]182 mg/dLNoUniversity Hospitals Samaritan Medical CenterComment on above:Result Comment: Random Glucose Reference Range is dependent on time and content of last meal. Glucose of more than 200 mg/dL in a nonstressed, ambulatory subject supports the diagnosis of Diabetes Evelyn litus.PERFORMED BY:[address] [place], [place] [phone] MEDICAL DIRECTORCLIFFORD LOBATO M.D.Performed By: #### GLULS ####Point of Care testing,Carbon dioxide, total [Moles/volume] in Serum or PlasmaOrdered By: Bonilla Rubin on 37-13-3324DU8 [Moles/Vol]25.0 mmol/LNormal 21.0-31.0Tuscarawas HospitalComment on above:Performed By: #### PTT, HS TROP, PT, CMP, CK, CBC ####[facility] [place] [address] USAChloride [Moles/volume] in Serum or PlasmaOrdered By: Bonilla Rubin on 21-66-7958Jldoipmb [Moles/Vol]106 mmol/OUxlmex63-499 [facility] HospitalComment on above:Performed By: #### PTT, HS TROP, PT, CMP, CK, CBC ####[place] [address] USAColor Auto (U)Ordered By: Bonilla Rubin on 03-08-2024 Color (U)Color of Urine by AutoYellowTuscarawas HospitalColor of Urine by AutoOrdered By: Bonilla Rubin on 68-91-4452Cygas (U)Light-yellowNormal YellowTuscarawas HospitalComment on above:Order Comment: Name Collection Type:: Straight CatheterPerformed By: #### UA ####[place] [address] USAComplete Blood Count Auto Diff on 35-92-7046Eawx Corpuscular HGB Conc32.0 g/dLLow32.5-35.6The [facility] Physician GroupComment on above:Performed By: #### PTT, HS TROP, PT, CMP, CK, CBC ####[place] [address] [place] Monocytes/100 WBC (Bld)18.68 %Normal0.00-20.00The [facility] Physician Group Comment on above:Performed By: #### PTT, HS TROP, PT, CMP, CK, CBC ####[place] [address] USANRBC%0.2 /100{WBC} Normal0-0.5The [facility] Physician [facility] HospitalComment on above:Performed By: #### PTT, HS TROP, PT, CMP, CK, CBC ####[place] [address] USAComprehensive Metabolic Panelon 89-17-6414Ptynvlr [Mass/Vol]3.8 g/dLNormal3.5-5.7The [facility] Physician GroupComment on above: Performed By: #### PTT, HS TROP, PT, CMP, CK, CBC ####[place] [address] [place] [address] USACreatinine Clr Calc Xhbskpnd32.90 NormalThe [facility] Hospital Physician GroupComment on above:Result Comment: PERFORMED BY:[address] [place], [place] [phone] MEDICAL DIRECTORCLIFFORD LOBATO M.D.Performed By: #### PTT, HS TROP, PT, CMP, CK, CBC ####[address] [address] USAGFR/1.73 sq M.predicted MDRD (S/P/Bld) [Vol rate/Area]40.131 mL/min/{1.73_m2}NormalThe [facility] Physician GroupComment on above:Performed By: #### PTT, HS TROP, PT, CMP, CK, CBC ####[address] [address] USACreatine kinase [Enzymatic activity/volume] in Serum or PlasmaOrdered By: Bonilla Rubin on 18-69-5836GV [Catalytic activity/Vol]181 U/LEjjchd06-061IlymbevgrTuscarawas HospitalComment on above:Performed By: #### PTT, HS TROP, PT, CMP, CK, CBC ####[address] [address] USACK [Catalytic activity/Vol] Creatine kinase [Enzymatic activity/volume] in Serum or Flfzik71-223WfhmybcqfTuscarawas HospitalCreatinine [Mass/volume] in Serum or PlasmaOrdered By: Bonilla Rubin on 81-60-9290Lyztpazwjp [Mass/Vol]1.91 mg/dLHigh0.70-1.30Tuscarawas HospitalComment on above:Performed By: #### PTT, HS TROP, PT, CMP, CK, CBC ####[address] [address] USADrug Screen,Urineon 39-12-8449Klhiyyrdksa Screen,UrineNegativeNormal NegativeThe [facility] Physician GroupComment on above:Performed By: #### URDS ####[facility] [place] [address] [place] Barbiturate Screen,UrineNegativeNormalNegativeThe [facility] Physician Group Comment on above:Performed By: #### URDS ####[address] [address] USABenzodiazepines Screen,UrineNegativeNormal NegativeThe [facility] Physician GroupComment on above:Performed By: #### URDS ####[address] [address] [place] Cannabinoid Screen,UrineNegativeNormalNegativeThe [facility] Physician Group Comment on above:Result Comment: These are unconfirmed results and should not be used for legal purposes. Drug Cut-Off Concentration: AMPH 1000 ng/mL JERMAINE 200 ng/mL SAVANNAH 200 ng/mL COCM 300 ng/mL OP 300 ng/mL PCP 25 ng/mL THC 20 ng/mLPERFORMED BY:[address] [place], [place] [phone] MEDICAL DIRECTORCLIFFORD LOBATO M.D.Performed By: #### URDS ####[address] [address] [place] Cocaine Screen,UrineNegativeNormalNegativeThe [facility] Physician [facility] HospitalComment on above:Performed By: #### URDS ####[address] [address] USAOpiate Screen,UrineNegativeNormalNegativeThe [facility] Physician GroupComment on above:Performed By: #### URDS ####[address] [address] USAPhencyclidine Screen,UrineNegativeNormalNegativeThe [facility] Physician GroupComment on above: Performed By: #### URDS ####[address] [address] USAECG 12 lead ECGon 97-54-4690XDB 12 lead ECGNormalThe [facility] Physician GroupErythrocyte distribution width [Ratio] by Automated countOrdered By: Bonilla Rubin on 40-28-5107Wzntbiimhhr distribution width (RBC) [Ratio]22.0 %High12.0-14.8Tuscarawas HospitalComment on above: Performed By: #### PTT, HS TROP, PT, CMP, CK, CBC ####[place] [address] [place] [address] USAErythrocytes [#/volume] in Blood by Automated countOrdered By: Bonilla Rubin on 81-35-1205SOR (Bld) [#/Vol]4.54 10*6/uLNormal3.90-5.60T[facility]carawas HospitalComment on above: Performed By: #### PTT, HS TROP, PT, CMP, CK, CBC ####[place] [address] [place] [address] USAGlucose [Mass/volume] in Serum or PlasmaOrdered By: Bonilla Rubin on 78-77-0149Nqnfrep [Mass/Vol]167 mg/dLHigh 70-100Tuscarawas HospitalComment on above:Result Comment: Random Glucose Reference Range is dependent on time and content of last meal. Glucose of more than 200 mg/dL in a nonstressed, ambulatory subject supports the diagnosis of Diabetes Mellitus. ADA recommended reference rangePerformed By: #### PTT, HS TROP, PT, CMP, CK, CBC ####[place] [id number] USAGlucose [Mass/volume] in Urine by Test stripOrdered By: Bonilla Rubin on 00-53-8519Fyqgepb Test strip (U) [Mass/Vol]>=1000 mg/dL HighFairfield Medical CenterGlucose Test strip (U) [Mass/Vol] Glucose [Mass/volume] in Urine by Test stripHighFairfield Medical CenterHematocrit [Volume Fraction] of Blood by Automated countOrdered By: Bonilla Rubin on 89-41-6011Lfyfyvmehz (Bld) [Volume fraction]32.2 %Low38.8-50.0 [facility] HospitalComment on above:Performed By: #### PTT, HS TROP, PT, CMP, CK, CBC ####[place] [address] [place] [address] USAHemoglobin Test strip Ql (U)Ordered By: Bonilla Rubin on 48-57-2839Fefccaiymn Ql (U)NegativeNegativeTuscarawas Hospital Hemoglobin Ql (U)Hemoglobin [Presence] in Urine by Test stripNegativeTuscarawas HospitalHemoglobin [Mass/volume] in BloodOrdered By: Bonilla Rubin on 19-63-2352Djmhztlezl (Bld) [Mass/Vol]10.3 g/dLLow13.0-17.0Tuscarawas HospitalComment on above:Performed By: #### PTT, HS TROP, PT, CMP, CK, CBC ####[facility] [address] [place] [address] USAINR in Platelet poor plasma by Coagulation assayOrdered By: Bonilla Rubin on 30-15-4677YUY Coag (PPP) [Relative time]1.1 {INR}NormalTuscarawas HospitalComment on above:INR Therapeutic Range A) Pre- and Peroperative OAT started two weeks before surgery. NOT HIP SURGERY: 1.5 - 2.5 HIP SURGERY: 2 - 3B) Primary and secondary prevention of venous THROMBOSIS: 2 - 3C) Active venous thrombosis, pulmonary embolismand prevention of recurrent venous thrombosis: 2 - 3D) Prevention of arterial thromboembolismincluding patients with mechanical heart valves: 3 - 4.5Result Comment: INR Therapeutic Range A) Pre- and [...] valves: 3 - 4.5 Performed By: #### PTT, HS TROP, PT, CMP, CK, CBC ####[facility] [address] [place] [address] USAINR Coag (PPP) [Relative time]INR in Platelet poor plasma by Coagulation assayTuscarawas Hospital Comment on above:INR Therapeutic Range A) Pre- and Peroperative OAT started two weeks before surgery. NOT HIP SURGERY: 1.5 - 2.5 HIP SURGERY: 2 - 3B) Primary and secondary prevention of venous THROMBOSIS: 2 - 3C) Active venous thrombosis, pulmonary embolismand prevention of recurrent venous thrombosis: 2 - 3D) Preve ntion of arterial thromboembolismincluding patients with mechanical heart valves: 3 - 4.5Ketones Test strip Ql (U)Ordered By: Bonilla Rubin on 03-08-2024 Ketones Ql (U)Ketones [Presence] in Urine by Test stripNegWayne HospitalKetones [Presence] in Urine by Test stripOrdered By: Bonilla Rubin on 40-22-2850Hckfmvh Ql (U)NegativeNormalNegWayne HospitalComment on above:Order Comment: Name Collection Type:: Straight CatheterPerformed By: #### UA ####[address] [address] USALactate [Moles/volume] in Serum or PlasmaOrdered By: Bonilla Rubin on 50-46-9462Quaieoi [Moles/Vol]1.1 mmol/LNormal0.5-2.2FWhite HospitalComment on above:Result Comment: PERFORMED BY:[address] [place], [place] [phone] MEDICAL BRISA LOBATO M.D.Performed By: #### CUBLD, LACTIC ####[address] [address] USALactate [Moles/Vol] Lactate [Moles/volume] in Serum or Plasma0.5-2.2FWhite HospitalLeukocyte esterase [Presence] in Urine by Test stripOrdered By: Bonilla Rubin on 78-41-4939Ydbbykmmt esterase Test strip Ql (U)NegativeNormalNegMain Campus Medical CenterComment on above:Order Comment: Name Collection Type:: Straight CatheterPerformed By: #### UA ####[address] [address] USALeukocyte esterase Test strip Ql (U) Leukocyte esterase [Presence] in Urine by Test stripNegWayne HospitalLeukocytes [#/volume] corrected for nucleated erythrocytes in Blood by Automated counOrdered By: Bonilla Rubin on 93-71-9031GXY corrected for nucl RBC Auto (Bld) [#/Vol]8.9 10*3/uL4.1-10.5FWhite Hospital Leukocytes [#/volume] in Blood by Automated countOrdered By: Bonilla Rubin on 76-81-5932TLJ (Bld) [#/Vol]8.9 10*3/uLNormal4.1-10.5FWhite HospitalComment on above:Performed By: #### PTT, HS TROP, PT, CMP, CK, CBC ####[place] [id number] [facility] Lymphocytes [#/volume] in Blood by Automated countOrdered By: Bonilla Rubin on 31-58-8665Hqprbifcrgo (Bld) [#/Vol]1.2 10*3/uLNormal1.00-4.8Tuscarawas HospitalComment on above:Performed By: #### PTT, HS TROP, PT, CMP, CK, CBC ####[place] [id number] [facility] Lymphocytes/100 leukocytes in Blood by Automated countOrdered By: Bonilla Rubin on 70-24-7999Uwkeowsrnpd/100 WBC (Bld)13.1 %Normal.Tuscarawas HospitalComment on above:Performed By: #### PTT, HS TROP, PT, CMP, CK, CBC ####[address] [address] [facility] [Entitic mass] by Automated countOrdered By: Bonilla Rubin on 17-15-9951YHG (RBC) [Entitic mass]22.7 pgLow27.5-35.2FWhite HospitalComment on above:Performed By: #### PTT, HS TROP, PT, CMP, CK, CBC ####[address] [address] [facility] Auto (RBC) [Mass/Vol]Ordered By: Bonilla Rubin on 95-48-4319KMZN (RBC) [Mass/Vol]32.0 g/dL Low32.5-35.6FWhite HospitalMCV [Entitic volume] by Automated countOrdered By: Bonilla Rubin on 44-96-0221JLO (RBC) [Entitic vol]71.0 fLLow 83.5-101Tuscarawas HospitalComment on above:Performed By: #### PTT, HS TROP, PT, CMP, CK, CBC ####[facility] [address] [place] [address] USAMR head/brain wo conon 49-72-0064VV head/brain wo conNormalMartin Memorial Health Systems Physician GroupMonocyte distribution width [Entitic volume] in Blood by AutomatedOrdered By: Bonilla Rubin on 67-44-0996Tqnfgugl distribution width Auto (Bld) [Entitic vol]18.68 %0.00-20.00Tuscarawas HospitalMonocyte distribution width Auto (Bld) [Entitic vol]Monocyte distribution width [Entitic volume] in Blood by Automated0.00-20.00Tuscarawas HospitalNeutrophils [#/volume] in Blood by Automated countOrdered By: Bonilla Rubin on 85-61-3633Vgownccumsz (Bld) [#/Vol]6.2 10*3/uLNormal 1.8-7.7FWhite HospitalComment on above:Performed By: #### PTT, HS TROP, PT, CMP, CK, CBC ####[facility] [place] [address] USANitrite Test strip Ql (U)Ordered By: Bonilla Rubin on 83-86-8943Ctsrcae Ql (U)NegativeNegativeTuscarawas HospitalNitrite Ql (U)Nitrite [Presence] in Urine by Test stripNegWayne HospitalNo Panel InformationOrdered By: Bonilla Rubin on 03-08-2024 Arterial Blood Base Excess-1.4 mmol/L-3.0-3.0[facility] Arterial Blood Oxygen Content6.4 mmol/LLow6.6-9.7FWhite HospitalArterial Blood Oxygen Ysidqktuuy88.1 %95.0-100.0Tuscarawas HospitalArterial Blood Partial Pressure CO233.3 mm[Hg]Low35.0-45.0Tuscarawas HospitalArterial Blood Partial Pressure O292.6 mm[Hg]80.0-100.0 [facility] HospitalArterial Blood pH7.447.35-7.45T[facility]carawas HospitalBlood Gas Critical ValueSee commentTuscarawas HospitalComment on above:Critical Value called on: 03/08/2024 at 15:16 Blood Gas Sample SiteLeBlanchard Valley Health SystemFiO221 % [facility]7.447.35-7.45[facility] 33.3 mm[Hg]Low35.0-45.0[facility]92.6 mm[Hg]80.0-100.0 [facility]22.2 mmol/LLow23.0-29.0[facility]-1.4 mmol/L-3.0-3.0[facility]97.1 % 95.0-100.0[facility]6.4 mmol/LLow6.6-9.7FWhite Hospital23.2 mmol/L23.0-27.0[facility]21 % [facility] HospitalLeft [facility] Hospitalee commentTuscarawas Hospital40.131 mL/MinTuscarawas Hospital44.90T[facility]carawas HospitalNucleated erythrocytes [Presence] in Blood by Automated countOrdered By: Bonilla Rubin on 24-92-6285Gaunxyvmc RBC Auto Ql (Bld)0.2 /100{WBC}0-0.5FWhite HospitalOpiates [Presence] in Urine by Screen methodOrdered By: Bonilla Rubin on 03-08-2024 Opiates Screen Ql (U)NegativeNegativeTuscarawas HospitalOpiates Screen Ql (U)Opiates [Presence] in Urine by Screen methodNegativeTuscarawas HospitalPartial Thromboplastin Timeon 62-80-9303gOZQ Coag (Bld) [Time]29.6 oUaingf67.1-36.5The [facility] Physician GroupComment on above:Result Comment: A hematocrit value greater than 55% may lead to inaccurate results in coagulation testing. Patients having hematocrit values >55% require a special collection tube for coagulation studies. Please contact the laboratory at [phone] for redraw instructions.PERFORMED BY:[facility], [place] [phone] MEDICAL DIRECTORCLIFFORD LOBATO M.D.Performed By: #### PTT, HS TROP, PT, CMP, CK, CBC ####[address] [address] Phencyclidine Screen Ql (U)Ordered By: Bonilla Rubin on 47-08-5480Firgugcfpkowk Ql (U)NegativeNegWayne HospitalPhencyclidine Ql (U) Phencyclidine [Presence] in Urine by Screen methodNegWayne HospitalPlatelet mean volume [Entitic volume] in Blood by Automated count Ordered By: Bonilla Rubin on 35-88-5337Xvojpwis mean volume (Bld) [Entitic vol] 8.2 fLNormal6.6-10.1FWhite HospitalComment on above:Performed By: #### PTT, HS TROP, PT, CMP, CK, CBC ####[place] [address] USAPlatelets [#/volume] in Blood by Automated countOrdered By: Bonilla Rubin on 55-72-3074Fillintvr (Bld) [#/Vol]286 10*3/uL Kyqdby941-266BdijbgwzaTuscarawas HospitalComment on above:Performed By: #### PTT, HS TROP, PT, CMP, CK, CBC ####[place] [address] USAPotassium [Moles/volume] in Serum or PlasmaOrdered By: Bonilla Rubin on 86-56-2307Sycliozmd [Moles/Vol]4.1 mmol/LNormal3.5-5.1 [facility]as HospitalComment on above:Performed By: #### PTT, HS TROP, PT, CMP, CK, CBC ####[place] [id number] USAProtein Test strip (U) [Mass/Vol]Ordered By: Bonilla Rubin on 63-48-6355Eywvpzu (U) [Mass/Vol]NegativeNegWayne HospitalProtein (U) [Mass/Vol]Protein [Mass/volume] in Urine by Test strip NegativeTuscarawas HospitalProtein [Mass/volume] in Serum or PlasmaOrdered By: Bonilla Rubin on 00-50-1184Mzqodqc [Mass/Vol]7.7 g/dLNormal 6.4-8.9Tuscarawas HospitalComment on above:Performed By: #### PTT, HS TROP, PT, CMP, CK, CBC ####[facility] [place] [address] USAProthrombin time (PT)Ordered By: Bonilla Rubin on 67-85-5649OP Coag (PPP) [Time]13.0 sHigh9.0-12.9Tuscarawas HospitalComment on above:A hematocrit value greater than 55% may lead to inaccurate results in coagulation testing. Patientshaving hematocrit values >55% require a special collection tube for coagulation studies. Please contact the laboratory at [phone] for redraw instructions.Result Comment: A hematocrit value greater than 55% may lead to inaccurate results in coagulation testing. Patients having hematocrit values >55% require a special collection tube for coagulation studies. Please contact the laboratory at [phone] for redraw instructions.Performed By: #### PTT, HS TROP, PT, CMP, CK, CBC ####[facility] [place] [address] USAPT Coag (PPP) [Time] Prothrombin time (PT)High9.0-12.9Tuscarawas HospitalComment on above:A hematocrit value greater than 55% may lead to inaccurate results in coagulation testing. Patientshaving hematocrit values >55% require a special collection tube for coagulation studies. Please contact the laboratory at [phone] for redraw instructions.Respiratory (Upper) Panel, PCRon 03-08-2024 Respiratory (Upper) Panel, PCRNormHCA Florida Central Tampa Emergency Physician GroupComment on above:Performed By: #### RESP PANEL UPP., BIOFIRECOVNOTDE ####[facility] [place] [address] USARespiratory pathogens DNA and RNA panel - Nasopharynx by NELLY with non-probe detectionOrdered By: Bonilla Rubin on 32-23-3690Sqjutomwbos pathogens DNA and RNA panel NELLY+non-probe (Nph)Respiratory pathogens DNA and RNA panel - Nasopharynx by NELLY with non-probe detectionTuscarawas HospitalRespiratory pathogens DNA and RNA panel NELLY+non-probe (Nph)[facility] Beachwooderum globulin measurement by calculation (mass/volume)Ordered By: Bonilla Rubin on 03-08-2024 Globulin (S) [Mass/Vol]3.9 g/dLNormalTuscarawas HospitalComment on above:Performed By: #### PTT, HS TROP, PT, CMP, CK, CBC ####[place] [address] [place] [address] USASerum or plasma albumin/globulin mass ratioOrdered By: Bonilla Rubin on 03-08-2024 Albumin/Globulin [Mass ratio]1.0 {ratio}NormalTuscarawas Hospital Comment on above:Performed By: #### PTT, HS TROP, PT, CMP, CK, CBC ####[place] [id number] USASerum or plasma anion gap determinationOrdered By: Bonilla Rubin on 03-85-4052Hxoyu gap [Moles/Vol] 14.1 mmol/LNormal6.0-15.0T[facility]carawas HospitalComment on above: Performed By: #### PTT, HS TROP, PT, CMP, CK, CBC ####[address] [address] USASodium [Moles/volume] in Serum or PlasmaOrdered By: Bonilla Rubin on 67-31-1371Qourei [Moles/Vol]141 mmol/LNormal 136-145Tuscarawas HospitalComment on above:Performed By: #### PTT, HS TROP, PT, CMP, CK, CBC ####[address] [address] USASpecific gravity Test strip (U) [Rel density]Ordered By: Bonilla Rubin on 67-48-9140Febxjisx gravity (U) [Rel density]1.0131.001-1.030 [facility], Beachwoodpecific gravity (U) [Rel density]Specific gravity of Urine by Test strip1.001-1.030[facility] Hospital Troponin I High Sensitivityon 96-00-4270Frqmocod I High Sensitivity6.1 pg/mL Normal0.0-20.0The [facility] Physician GroupComment on above:Result Comment: PERFORMED BY:[address] [place], [place] [phone] MEDICAL DIRECTORCLIFFORD LOBATO M.D.Performed By: #### PTT, HS TROP, PT, CMP, CK, CBC ####[address] [address] USATroponin I.cardiac [Mass/volume] in Serum or Plasma by Detection limit <= 0.01 ng/Ordered By: Bonilla Rubin on 99-73-0816Hieqgylr I.cardiac DL <= 0.01 ng/mL [Mass/Vol]6.1 pg/mL0.0-20.0Tuscarawas HospitalTroponin I.cardiac DL <= 0.01 ng/mL [Mass/Vol]Troponin I.cardiac [Mass/volume] in Serum or Plasma by Detection limit <= 0.01 ng/0.0-20.0Tuscarawas HospitalUrea nitrogen [Mass/volume] in Serum or PlasmaOrdered By: Bonilla Rubin on 80-38-9588Oopw nitrogen [Mass/Vol]19 mg/dLNormal12-27 [facility] HospitalComment on above:Performed By: #### PTT, HS TROP, PT, CMP, CK, CBC ####[address] [place] [address] USAUrinalysison 15-70-0070Ltvxtuytc,UrineNegativeNormal NegativeThe [facility] Physician GroupComment on above:Order Comment: Name Collection Type:: Straight CatheterPerformed By: #### UA ####[address] [address] USAGlucose Ql (U)>=1000HighNormal The [facility] Physician GroupComment on above:Order Comment: Name Collection Type:: Straight CatheterPerformed By: #### UA ####[address] [address] USANitrite,UrineNegativeNormalNegativeMartin Memorial Health Systems Physician GroupComment on above:Order Comment: Name Collection Type:: Straight CatheterPerformed By: #### UA ####[address] [address] USAOccult Blood,UrineNegativeNormalNegativeThe [facility] Physician GroupComment on above:Order Comment: Name Collection Type:: Straight CatheterResult Comment: PERFORMED BY:[address] [place], [place] [phone] MEDICAL DIRECTORCLIFFORD LOBATO M.D.Performed By: #### UA ####[address] [address] USAProtein,UrineNegativeNormalNegativeMartin Memorial Health Systems Physician GroupComment on above:Order Comment: Name Collection Type:: Straight CatheterPerformed By: #### UA ####[place] [address] USASpecificy [place],Urine1.434Xklkoq8.001-1.030 The [facility] Physician GroupComment on above:Order Comment: Name Collection Type:: Straight CatheterPerformed By: #### UA ####[address] [address] USAUrobilinogen,UrineNormalNormalNormal The [facility] Physician GroupComment on above:Order Comment: Name Collection Type:: Straight CatheterPerformed By: #### UA ####[address] [address] USAUrine appearanceOrdered By: Bonilla Rubin on 04-66-9448Xvjcptkskr (U)ClearNormalClearTuscarawas HospitalComment on above:Order Comment: Name Collection Type:: Straight Catheter Performed By: #### UA ####[place] [address] USAUrobilinogen Test strip (U) [Mass/Vol]Ordered By: Bonilla Rubin on 07-68-6969Jelfawhmqifz (U) [Mass/Vol]Normal mg/dLNormal [facility]car[facility]as HospitalUrobilinogen (U) [Mass/Vol]Urobilinogen [Mass/volume] in Urine by Test stripNormalTuscarawas HospitalXR chest 1V portableon 91-96-9042TJ chest 1V portableNoNovant Health [facility]ender [facility] Center Physician GroupaPTT in Platelet poor plasma by Coagulation assayOrdered By: Bonilla Rubin on 75-90-9913wFRB Coag (PPP) [Time]Activated partial thromboplastin time (aPTT) in platelet poor plasma by coagulation a25.1-36.5FWhite HospitalComment on above:A hematocrit value greater than 55% may lead to inaccurate results in coagulation testing. Patientshaving hematocrit values >55% require a special collection tube for coagulation studies. Please contact the laboratory at [phone] for redraw instructions.pH Test strip (U)Ordered By: Bonilla Rubin on 83-11-7974mS (U)pH of Urine by Test strip5.0-9.0Tuscarawas HospitalpH of Urine by Test stripOrdered By: Bonilla Rubin on 27-87-1790uY (U)5.0 [pH]Normal5.0-9.0T[facility]carawas HospitalComment on above:Order Comment: Name Collection Type:: Straight CatheterPerformed By: #### UA ####[facility] [id number] [place] [address] [place] Alanine aminotransferase [Enzymatic activity/volume] in Serum or PlasmaOrdered By: João Powell on 65-18-6135NJV [Catalytic activity/Vol]11 U/LNormal [facility]car[facility]as HospitalComment on above:Performed By: #### MG, PHOS, CMP, DIFF CBC ####[facility] [id number] [place] [address] USAALT [Catalytic activity/Vol]Alanine aminotransferase [Enzymatic activity/volume] in Serum or PlasmaTuscarawas HospitalAlbumin [Mass/volume] in Serum or Plasma by Bromocresol green (BCG) dye binding metho Ordered By: João Powell on 72-55-3907Swcomxh BCG dye [Mass/Vol]3.3 g/dLLow 3.5-5.7Firelands Regional Medical CenterAlbumin BCG dye [Mass/Vol]Albumin [Mass/volume] in Serum or Plasma by Bromocresol green (BCG) dye binding methoLow 3.5-5.7FWhite HospitalAlkaline phosphatase [Enzymatic activity/volume] in Serum or PlasmaOrdered By: João Powell on 52-74-4713HXU [Catalytic activity/Vol]101 U/PZtrwux74-401OzmlogulhTuscarawas Hospital Comment on above:Performed By: #### MG, PHOS, CMP, DIFF CBC ####[place] [address] [place] [id number] USAALP [Catalytic activity/Vol]Alkaline phosphatase [Enzymatic activity/volume] in Serum or Plasma 34-104Tuscarawas HospitalAnisocytosis LM Ql (Bld)Ordered By: João Powell on 65-50-0885Dsozdrcdcdno Ql (Bld)Anisocytosis [Presence] in Blood by Light microscopyTuscarawas HospitalAnisocytosis [Presence] in Blood by Light microscopyOrdered By: João Powell on 23-47-0855Btlzogmxndpx Ql (Bld)MarkedNormalTuscarawas HospitalComment on above:Performed By: #### MG, PHOS, CMP, DIFF CBC ####[place] [address] USAAspartate aminotransferase [Enzymatic activity/volume] in Serum or PlasmaOrdered By: João Powell on 92-23-0980HYZ [Catalytic activity/Vol]14 U/IWrvoav27-58Iphzr[address] Comment on above:Performed By: #### MG, PHOS, CMP, DIFF CBC ####[place] [address] USAAST [Catalytic activity/Vol]Aspartate aminotransferase [Enzymatic activity/volume] in Serum or Rxirzj71-50ZwkeljgnqTuscarawas HospitalBasophils Auto (Bld) [#/Vol]Ordered By: João Powell on 20-21-2659Bbndjrmms (Bld) [#/Vol]N/AFWhite HospitalBasophils (Bld) [#/Vol]Automated basophil countTuscarawas HospitalBasophils/100 WBC Auto (Bld)Ordered By: João Powell on 03-06-2024 Basophils/100 WBC (Bld)N/AFWhite HospitalBasophils/100 WBC (Bld)Automated basophil %Tuscarawas HospitalBasophils/100 WBC Manual cnt (Bld)Ordered By: João Powell on 45-11-2321Uvoarlspc/100 WBC (Bld) Basophils/100 leukocytes in Blood by Manual count0White HospitalBasophils/100 leukocytes in Blood by Manual countOrdered By: João Powell on 34-20-7528Uqhhmqdrp/100 WBC (Bld)1 %Normal0White HospitalComment on above:Performed By: #### MG, PHOS, CMP, DIFF CBC ####[facility] [id number] [place], [place] [id number] USABilirubin.total [Mass/volume] in Serum or PlasmaOrdered By: João Powell on 69-97-1695Xdzquaotr [Mass/Vol]0.4 mg/dLNofrye regional medical center0.3-1.0Tuscarawas HospitalComment on above:Performed By: #### MG, PHOS, CMP, DIFF CBC ####[place] [address] USABilirubin [Mass/Vol]Bilirubin.total [Mass/volume] in Serum or Plasma0.3-1.0Tuscarawas HospitalCalcium [Mass/volume] in Serum or PlasmaOrdered By: João Powell on 82-44-9488Ebpilqv [Mass/Vol]8.7 mg/dLNormal8.6-10.3FWhite HospitalComment on above:Performed By: #### MG, PHOS, CMP, DIFF CBC ####[place] [address] USACalcium [Mass/Vol]Calcium [Mass/volume] in Serum or Plasma8.6-10.3FWhite Hospital Capillary blood glucose measurement by glucometer (mass/volume)Ordered By: João Powell on 94-02-0630Efpbqvm [Mass/Vol]169 mg/dLNormalTuscarawas HospitalComment on above:Random Glucose Reference Range is dependent on time and content of last meal. Glucose of more than 200 mg/dL in a nonstressed, ambulatory subject supports the diagnosis of Diabetes Mellitus.Result Comment: Random Glucose Reference Range is dependent on time and content of last meal. Glucose of more than 200 mg/dL in a nonstressed, ambulatory subject supports the diagnosis of Diabetes Mellitus.PERFORMED BY:[address] [place], [place] [phone] MEDICAL DIRECTORCLIFFORD LOBATO M.D.Performed By: #### GLULS ####Point of Care testing, Carbon dioxide, total [Moles/volume] in Serum or PlasmaOrdered By: João Powell on 91-56-4617UE8 [Moles/Vol]24.3 mmol/ULabvct63.0-31.0Tuscarawas HospitalComment on above:Performed By: #### MG, PHOS, CMP, DIFF CBC ####[facility] [place] [address] USACO2 [Moles/Vol] Carbon dioxide, total [Moles/volume] in Serum or Oxmbwd34.0-31.0Tuscarawas HospitalChloride [Moles/volume] in Serum or PlasmaOrdered By: João Powell on 84-11-8159Dgfgwnli [Moles/Vol]107 mmol/YKudikk22-878BvaowvzykTuscarawas HospitalComment on above:Performed By: #### MG, PHOS, CMP, DIFF CBC ####[facility] [id number] [place] [address] [place] Chloride [Moles/Vol]Chloride [Moles/volume] in Serum or Muvoby60-461FpsoqptdlTuscarawas HospitalComprehensive Metabolic Panelon 49-69-3535Rkadogx [Mass/Vol]3.3 g/dLLow3.5-5.7The [facility] Physician GroupComment on above: Performed By: #### MG, PHOS, CMP, DIFF CBC ####[facility] [address] [place] [address] USACreatinine Clr Calc Lqbxbkal59.24 NormalThe [facility] Physician GroupComment on above:Performed By: #### MG, PHOS, CMP, DIFF CBC ####[address] [address] USAGFR/1.73 sq M.predicted MDRD (S/P/Bld) [Vol rate/Area]57.276 mL/min/{1.73_m2}[facility] Physician [facility]ippah County HospitalComment on above:Performed By: #### MG, PHOS, CMP, DIFF CBC ####[address] [address] USACreatinine [Mass/volume] in Serum or PlasmaOrdered By: João Powell on 71-80-9010Rnuipfgotj [Mass/Vol]1.42 mg/dLHigh0.70-1.30 [facility] HospitalComment on above:Performed By: #### MG, PHOS, CMP, DIFF CBC ####[place] [address] USACreatinine [Mass/Vol]Creatinine [Mass/volume] in Serum or PlasmaHigh 0.70-1.30Tuscarawas HospitalDacrocytes [Presence] in Blood by Light microscopyOrdered By: João Powell on 85-32-8597Vfbdzzsuqf LM Ql (Bld) Teardrop cell detectionTuscarawas HospitalDiff and CBCon 79-77-9330TaycbrsniuffhNbhqrmIxzyhvHhi [place] Physician [facility] County HospitalComment on above:Performed By: #### MG, PHOS, CMP, DIFF CBC ####[address] [address] USALarge PlateletsSHoly Cross HospitalComment on above:Result Comment: PERFORMED BY:[address] [place], [place] [phone] MEDICAL DIRECTORCLIFFORD LOBATO M.D.Performed By: #### MG, PHOS, CMP, DIFF CBC ####[address] [address] USAMean Corpuscular HGB Conc32.0 g/dLLow32.5-35.6The [facility] Physician GroupComment on above:Performed By: #### MG, PHOS, CMP, DIFF CBC ####[place] [address] USAMicrocytosisSFormerly [facility] Physician GroupComment on above:Performed By: #### MG, PHOS, CMP, DIFF CBC ####[place] [address] [place] Platelet EstimateNormalNormalH[facility] Physician GroupComment on above:Performed By: #### MG, PHOS, CMP, DIFF CBC ####[place] [address] USAPolychromasiaSFormerly [facility] Physician GroupComment on above:Performed By: #### MG, PHOS, CMP, DIFF CBC ####[place] [address] USATear Drop CellsSlightHCA Florida Oviedo Medical Center Physician GroupComment on above:Performed By: #### MG, PHOS, CMP, DIFF CBC ####[place] [address] USAEosinophils Auto (Bld) [#/Vol]Ordered By: João Powell on 27-59-2534Qegluarfqid (Bld) [#/Vol]N/[facility] Eosinophils (Bld) [#/Vol]Automated eosinophil countTuscarawas HospitalEosinophils/100 WBC Auto (Bld)Ordered By: João Powell on 03-06-2024 Eosinophils/100 WBC (Bld)N/[facility] NorthEosinophils/100 WBC (Bld)Automated eosinophil %Tuscarawas HospitalEosinophils/100 WBC Manual cnt (Bld)Ordered By: João Powell on 33-44-2440Mqejcmwdxux/100 WBC (Bld) Eosinophils/100 leukocytes in Blood by Manual count1-3FWhite HospitalEosinophils/100 leukocytes in Blood by Manual countOrdered By: João Powell on 04-80-9403Hqqxvtbumxg/100 WBC (Bld)1 %Normal1-3FWhite HospitalComment on above:Performed By: #### MG, PHOS, CMP, DIFF CBC ####[address] Erythrocyte distribution width Auto (RBC) [Ratio]Ordered By: João Powell on 92-38-4266Ndsaluurlwu distribution width (RBC) [Ratio]Erythrocyte distribution width [Ratio] by Automated nctksDkdp05.0-14.8[facility] Erythrocyte distribution width [Ratio] by Automated countOrdered By: João Powell on 85-89-6684Vrlahgfnltq distribution width (RBC) [Ratio]21.1 %High 12.0-14.8Tuscarawas HospitalComment on above:Performed By: #### MG, PHOS, CMP, DIFF CBC ####[address]Erythrocyte morphology finding [Identifier] in Blood Ordered By: João Powell on 15-26-5160TQJ morphology finding Nom (Bld)RBC morphologyTuscarawas HospitalErythrocytes [#/volume] in Blood by Automated countOrdered By: João Powell on 89-01-7695AED (Bld) [#/Vol]3.68 10*6/uLLow3.90-5.60T[facility]carawas HospitalComment on above:Performed By: #### MG, PHOS, CMP, DIFF CBC ####[place] [address] USAGlobulin Calc (S) [Mass/Vol]Ordered By: João Powell on 38-32-2583Cdqrfhxz (S) [Mass/Vol]Serum globulin measurement by calculation (mass/volume)Tuscarawas HospitalGlucose Glucometer (BldC) [Mass/Vol]Ordered By: João Powell on 95-97-6894Aauxwgg [Mass/Vol]Capillary blood glucose measurement by glucometer (mass/volume)Tuscarawas HospitalComment on above:Random Glucose Reference Range is dependent on time and content of last meal. Glucose of more than 200 mg/dL in a nonstressed, ambulatory subject supports the diagnosis of Diabetes Mellitus.Glucose Poct Glucometerson 96-83-1029Wugnpfm [Mass/Vol]128 mg/dLNoNovant Health [facility]ender Medical Center Physician GroupComment on above:Result Comment: Random Glucose Reference Range is dependent on time and content of last meal. Glucose of more than 200 mg/dL in a nonstressed, ambulatory subject supports the diagnosis of Diabetes Evelyn litus.PERFORMED BY:[facility] [place] [place], [place] [phone] MEDICAL DIRECTORCLIFFORD LOBATO M.D.Performed By: #### GLULS ####Point of Care testing,Glucose [Mass/volume] in Serum or PlasmaOrdered By: João Powell on 13-08-4044Hovdkpr [Mass/Vol]99 mg/uIDpvqdt68-396PituohkfyTuscarawas HospitalComment on above:ADA recommended reference rangeRandom Glucose Reference Range is dependent on time and content of last meal. Glucose of more than 200 mg/dL in a nonstressed, ambulatory subject supports the diagnosisof Diabetes Mellitus.Result Comment: Random Glucose Reference Range is dependent on time and content of last meal. Glucose of more than 200 mg/dL in a nonstressed, ambulatory subject supports the diagnosis of Diabetes Mellitus. ADA recommended reference rangePerformed By: #### MG, PHOS, CMP, DIFF CBC ####[facility] [address] [place] [address] USAGlucose [Mass/Vol]Glucose [Mass/volume] in Serum or Vmnowf91-553DpawjhgjlTuscarawas HospitalComment on above:ADA recommended reference rangeRandom Glucose Reference Range is dependent on time and content of last meal. Glucose of more than 200 mg/dL in a nonstressed, ambulatory subject supports the diagnosisof Diabetes Mellitus.Hematocrit Auto (Bld) [Volume fraction]Ordered By: João Powell on 22-37-0615Qpsinitlzb (Bld) [Volume fraction]Hematocrit [Volume Fraction] of Blood by Automated jvqinJmm99.8-50.0[facility] Hematocrit [Volume Fraction] of Blood by Automated countOrdered By: João Powell on 20-13-6834Zokkhatpsx (Bld) [Volume fraction]25.8 %Low38.8-50.0T[facility]carawas HospitalComment on above:Performed By: #### MG, PHOS, CMP, DIFF CBC ####[facility] [id number] Hemoglobin [Mass/volume] in BloodOrdered By: João Powell on 03-06-2024 Hemoglobin (Bld) [Mass/Vol]8.3 g/dLLow13.0-17.0[facility] Comment on above:Performed By: #### MG, PHOS, CMP, DIFF CBC ####[facility] [id number] [place] [id number] USAHemoglobin (Bld) [Mass/Vol]Hemoglobin [Mass/volume] in MogxkLzs19.0-17.0Tuscarawas HospitalHypochromia LM Ql (Bld)Ordered By: João Powell on 03-06-2024 Hypochromia Ql (Bld)SlightTuscarawas HospitalHypochromia Ql (Bld) Hypochromia [Presence] in Blood by Light microscopyTuscarawas HospitalLeukocytes [#/volume] corrected for nucleated erythrocytes in Blood by Automated counOrdered By: João Powell on 62-21-7272DKD corrected for nucl RBC Auto (Bld) [#/Vol]6.8 10*3/uL4.1-10.5FWhite HospitalWBC corrected for nucl RBC Auto (Bld) [#/Vol]Leukocytes [#/volume] corrected for nucleated erythrocytes in Blood by Automated coun4.1-10.5FWhite HospitalLeukocytes [#/volume] in Blood by Automated countOrdered By: João Powell on 37-09-5226ALJ (Bld) [#/Vol]6.8 10*3/uLNormal4.1-10.5FWhite HospitalComment on above:Performed By: #### MG, PHOS, CMP, DIFF CBC ####[facility] [id number] [place] [id number] [facility] Lymphocytes Auto (Bld) [#/Vol]Ordered By: João Powell on 85-60-1346Mswtcjifoce (Bld) [#/Vol]N/[facility] NorthLymphocytes (Bld) [#/Vol] Lymphocytes [#/volume] in Blood by Automated countTuscarawas HospitalLymphocytes/100 WBC Auto (Bld)Ordered By: João Powell on 03-06-2024 Lymphocytes/100 WBC (Bld)N/[facility] NorthLymphocytes/100 WBC (Bld)Lymphocytes/100 leukocytes in Blood by Automated countTuscarawas HospitalLymphocytes/100 WBC Manual cnt (Bld)Ordered By: João Powell on 07-17-8664Ozlnvrthpgg/100 WBC (Bld)Lymphocytes/100 leukocytes in Blood by Manual tiloz81-44AiumxbjrfTuscarawas HospitalLymphocytes/100 leukocytes in Blood by Manual countOrdered By: João Powell on 96-03-7703Atxfcipgcjr/100 WBC (Bld)18 %Rqspyo59-99GlbqwwtvnTuscarawas HospitalComment on above:Performed By: #### MG, PHOS, CMP, DIFF CBC ####[facility] [id number] [place] [id number] [facility] Auto (RBC) [Entitic mass]Ordered By: João Powell on 81-93-4767KVZ (RBC) [Entitic mass]MCH [Entitic mass] by Automated count Low27.5-35.2FWooster Community Hospital [Entitic mass] by Automated countOrdered By: João Powell on 72-41-7178XDR (RBC) [Entitic mass]22.4 pgLow 27.5-35.2FWhite HospitalComment on above:Performed By: #### MG, PHOS, CMP, DIFF CBC ####[place] [id number] [facility] Auto (RBC) [Mass/Vol]Ordered By: João Powell on 62-82-4761ZQBA (RBC) [Mass/Vol]32.0 g/dLLow32.5-35.6FMercy Health Perrysburg Hospital (RBC) [Mass/Vol]MCHC [Mass/volume] by Automated countLow 32.5-35.6FWhite HospitalMCV Auto (RBC) [Entitic vol]Ordered By: João Powell on 42-19-8900GZH (RBC) [Entitic vol]MCV [Entitic volume] by Automated sfycjXqw15.5-101Tuscarawas HospitalMCV [Entitic volume] by Automated countOrdered By: João Powell on 40-18-7103THV (RBC) [Entitic vol] 70.[address] [place], [place] [address]Comment on above:Performed By: #### MG, PHOS, CMP, DIFF CBC ####[address] [address] USAMagnesium [Mass/volume] in Serum or PlasmaOrdered By: João Powell on 19-02-7653Bkeqseyyy [Mass/Vol]1.6 mg/dLLow1.9-2.7FWhite HospitalComment on above:Result Comment: PERFORMED BY:[address] [place], [place] [phone] MEDICAL DIRECTORCLIFFORD LOBATO M.D.Performed By: #### MG, PHOS, CMP, DIFF CBC ####[address] [address] [place] Magnesium [Mass/Vol]Magnesium [Mass/volume] in Serum or PlasmaLow1.9-2.7 [facility] HospitalManual blood segmented neutrophils/100 leukocytesOrdered By: João Powell on 83-83-9568Nqjwdmlkf neutrophils/100 WBC (Bld)72 %Ykah18-38ZzcbtloitTuscarawas HospitalComment on above:Performed By: #### MG, PHOS, CMP, DIFF CBC ####[address] [address] [address] USAMicrocytes LM Ql (Bld)Ordered By: João Powell on 98-73-1065Euetwoviny Ql (Bld)SlightTuscarawas HospitalMicrocytes Ql (Bld)Microcytes [Presence] in Blood by Light microscopyTuscarawas HospitalMonocytes Auto (Bld) [#/Vol]Ordered By: João Powell on 03-06-2024 Monocytes (Bld) [#/Vol]N/[facility] NorthMonocytes (Bld) [#/Vol]Automated blood monocyte countTuscarawas Hospital Monocytes/100 WBC Auto (Bld)Ordered By: João Powell on 66-17-2429Bhgddoqzg/100 WBC (Bld)N/[facility] NorthMonocytes/100 WBC (Bld)Automated monocyte %T[facility]carawas HospitalMonocytes/100 WBC Manual cnt (Bld) Ordered By: João Powell on 75-05-7590Otdghllnl/100 WBC (Bld)Monocytes/100 leukocytes in Blood by Manual count[address] Monocytes/100 leukocytes in Blood by Manual countOrdered By: João Powell on 22-07-3105Wcebxqbwb/100 WBC (Bld)8 %Normal[address] Comment on above:Performed By: #### MG, PHOS, CMP, DIFF CBC ####[facility] [address] [place] [address] USANeutrophils Auto (Bld) [#/Vol]Ordered By: João Powell on 35-86-9845Imrsxpjaykw (Bld) [#/Vol]N/A [facility] HospitalNeutrophils (Bld) [#/Vol]Neutrophils [#/volume] in Blood by Automated countTuscarawas HospitalNeutrophils/100 WBC Auto (Bld)Ordered By: João Powell on 67-56-2240Zweizyacpss/100 WBC (Bld)N/A [facility] HospitalNeutrophils/100 WBC (Bld)Automated neutrophil % [facility]awas HospitalNo Panel InformationOrdered By: João Powell on 15-45-4979Nvimupfkk GFR (CKD-EPI)57.276 mL/[facility] Creatinine Clearance (Chem62.24[facility]57.276 mL/[facility]62.24[facility] Nucleated erythrocytes [Presence] in Blood by Automated countOrdered By: João Powell on 06-50-9807Wueiiskdj RBC Auto Ql (Bld)N/AFWhite HospitalNucleated RBC Auto Ql (Bld)Nucleated erythrocytes [Presence] in Blood by Automated countTuscarawas HospitalPhosphate [Mass/volume] in Serum or PlasmaOrdered By: João Powell on 24-41-4512Qcrexknus [Mass/Vol]3.2 mg/dL Normal2.5-4.5FWhite HospitalComment on above:Performed By: #### MG, PHOS, CMP, DIFF CBC ####[facility] [address] [place] [address] USAPhosphate [Mass/Vol]Phosphate [Mass/volume] in Serum or Plasma2.5-4.5FWhite HospitalPlatelet adequacy [Presence] in Blood by Light microscopyOrdered By: João Powell on 53-62-5698Uuxjtamrr LM Ql (Bld)NormalNormLima City HospitalPlatelets LM Ql (Bld) Platelet adequacy [Presence] in Blood by Light microscopyNoUniversity Hospitals Samaritan Medical CenterPlatelet mean volume Auto (Bld) [Entitic vol]Ordered By: João Powell on 09-58-8395Jcnkiaae mean volume (Bld) [Entitic vol]Platelet mean volume [Entitic volume] in Blood by Automated count6.6-10.1FWhite HospitalPlatelet mean volume [Entitic volume] in Blood by Automated count Ordered By: Jooã Powell on 99-69-2329Hxgihmal mean volume (Bld) [Entitic vol] 8.1 fLNormal6.6-10.1FWhite HospitalComment on above:Performed By: #### MG, PHOS, CMP, DIFF CBC ####[facility] [address] [place] [address] USAPlatelet morphology finding [Identifier] in Blood Ordered By: João Powell on 77-13-4837Nimjffja morphology finding Nom (Bld)N/A [facility] HospitalPlatelet morphology finding Nom (Bld)Platelet morphology finding [Identifier] in BloodTuscarawas Hospital Platelets Auto (Bld) [#/Vol]Ordered By: João Powell on 77-20-7819Jzvulerde (Bld) [#/Vol]Platelets [#/volume] in Blood by Automated ammiw514-220RdjkdmwfzTuscarawas HospitalPlatelets Large [Presence] in Blood by Light microscopy Ordered By: João Powell on 77-31-4420Rvbvlaxmy Large LM Ql (Bld)[facility] HealthPlatelets Large LM Ql (Bld)Platelets Large [Presence] in Blood by Light microscopyTuscarawas HospitalPlatelets [#/volume] in Blood by Automated countOrdered By: João Powell on 37-26-2998Djthkorqc (Bld) [#/Vol]325 10*3/tGDiufue889-447PprlqpoysTuscarawas HospitalComment on above:Performed By: #### MG, PHOS, CMP, DIFF CBC ####[facility] [address] [place] [address] USAPolychromasia [Presence] in Blood by Light microscopyOrdered By: João Powell on 59-74-6613Vncihlnqgyxfo LM Ql (Bld) [facility] HealthPolychromasia LM Ql (Bld)Polychromasia [Presence] in Blood by Light microscopyTuscarawas Hospital Potassium [Moles/volume] in Serum or PlasmaOrdered By: João Powell on 68-33-2907Dctqshzrq [Moles/Vol]4.2 mmol/LNormal3.5-5.1FWhite HospitalComment on above:Performed By: #### MG, PHOS, CMP, DIFF CBC ####[facility] [address] [place], [place] [address] USAPotassium [Moles/Vol]Potassium [Moles/volume] in Serum or Plasma3.5-5.1FWhite HospitalProtein [Mass/volume] in Serum or PlasmaOrdered By: João Powell on 13-24-7449Wrggizn [Mass/Vol]6.1 g/dLLow6.4-8.9T[facility]carawas HospitalComment on above:Performed By: #### MG, PHOS, CMP, DIFF CBC ####[place] [id number] USAProtein [Mass/Vol] Protein [Mass/volume] in Serum or PlasmaLow6.4-8.9[facility] Auto (Bld) [#/Vol]Ordered By: João Powell on 39-04-5388BJM (Bld) [#/Vol]Erythrocytes [#/volume] in Blood by Automated countLow3.90-5.60[facility] morphologyOrdered By: João Powell on 54-21-8552QPB morphology finding Nom (Bld)N/AFSelect Medical Specialty Hospital - [facility] Northegmented neutrophils/100 WBC Manual cnt (Bld)Ordered By: João Powell on 03-06-2024 Segmented neutrophils/100 WBC (Bld)Manual blood segmented neutrophils/100 yuqxmafnnqPhbg10-05JkyqpogbwSelect Medical [facility] Hospital, Beachwooderum globulin measurement by calculation (mass/volume)Ordered By: João Powell on 73-66-6199Ohlmioei (S) [Mass/Vol]2.8 g/dLNormalTuscarawas HospitalComment on above: Performed By: #### MG, PHOS, CMP, DIFF CBC ####[facility] [address] [place] [address] USASerum or plasma albumin/globulin mass ratioOrdered By: João Powell on 85-17-6851Dsyndyb/Globulin [Mass ratio]1.2 {ratio}NormalTuscarawas HospitalComment on above:Performed By: #### MG, PHOS, CMP, DIFF CBC ####[address] [address] USAAlbumin/Globulin [Mass ratio]Serum or plasma albumin/globulin mass ratioSelect Medical Cleveland Clinic Rehabilitation Hospital, Beachwooderum or plasma anion gap determinationOrdered By: João Powell on 77-75-6567Rzdqj gap [Moles/Vol]9.9 mmol/LNormal6.0-15.0Tuscarawas HospitalComment on above:Performed By: #### MG, PHOS, CMP, DIFF CBC ####[address] [address] [place] [address] USAAnion gap [Moles/Vol]Serum or plasma anion gap determination6.0-15.0[facility], Beachwoododium [Moles/volume] in Serum or PlasmaOrdered By: João Powell on 52-80-2714Tqxzlk [Moles/Vol]137 mmol/NDmyzgw370-603YczvoakwlTuscarawas HospitalComment on above:Performed By: #### MG, PHOS, CMP, DIFF CBC ####[address] [place] [address] USASodium [Moles/Vol]Sodium [Moles/volume] in Serum or Yqaxgy580-583OtzsqbnupTuscarawas Hospital Teardrop cell detectionOrdered By: João Powell on 28-77-6038Tbxswiysdn LM Ql (Bld)SlightTuscarawas HospitalUrea nitrogen [Mass/volume] in Serum or PlasmaOrdered By: João Powell on 06-92-5667Jaoq nitrogen [Mass/Vol]17 mg/dL Normal12-27Tuscarawas HospitalComment on above:Performed By: #### MG, PHOS, CMP, DIFF CBC ####[address] [place] [address] USAUrea nitrogen [Mass/Vol]Urea nitrogen [Mass/volume] in Serum or Plasma12-27Tuscarawas HospitalWBC Auto (Bld) [#/Vol] Ordered By: João Powell on 32-00-1744XJW (Bld) [#/Vol]Leukocytes [#/volume] in Blood by Automated count4.1-10.5FWhite HospitalComplete Blood Count Auto Diffon 91-85-4006Cswpkycla (Bld) [#/Vol]0.1 10*3/uLNormal0.0-0.2The [facility] Physician GroupComment on above:Result Comment: PERFORMED BY:[address] [place], [place] [phone] MEDICAL DIRECTORCLIFFORD LOBATO M.D.Performed By: #### PHOS, MG, CBC, CMP ####[place] [address] [place] [address] [place] Basophils/100 WBC (Bld)1.1 %Normal.The [facility] Physician GroupComment on above:Performed By: #### PHOS, MG, CBC, CMP ####[place] [address] USAEosinophils (Bld) [#/Vol]0.2 10*3/uL Normal0.0-0.45The [facility] Physician GroupComment on above:Performed By: #### PHOS, MG, CBC, CMP ####[place] [address] USAEosinophils/100 WBC (Bld)2.8 %Normal.The [facility] Comment on above:Performed By: #### PHOS, MG, CBC, CMP ####[place] [address] USAErythrocyte distribution width (RBC) [Ratio]21.4 %High12.0-14.8The [facility] Physician GroupComment on above: Performed By: #### PHOS, MG, CBC, CMP ####[place] [address] USAHematocrit (Bld) [Volume fraction]26.8 %Low 38.8-50.0The [facility] Physician GroupComment on above:Performed By: #### PHOS, MG, CBC, CMP ####[place] [address] USAHemoglobin (Bld) [Mass/Vol]8.6 g/dLLow13.0-17.0The [facility] Physician GroupComment on above:Performed By: #### PHOS, MG, CBC, CMP ####[place] [address] USALymphocytes (Bld) [#/Vol]1.3 10*3/uLNormal1.00-4.8The [facility] Physician GroupComment on above: Performed By: #### PHOS, MG, CBC, CMP ####[place] [address] USALymphocytes/100 WBC (Bld)16.1 %Normal.The [facility] Physician GroupComment on above:Performed By: #### PHOS, MG, CBC, CMP ####[address] (RBC) [Entitic mass]22.4 pgLow27.5-35.2The [facility] Physician GroupComment on above:Performed By: #### PHOS, MG, CBC, CMP ####[address] (RBC) [Entitic vol]70.1 fLLow 83.5-101The [facility] Physician GroupComment on above:Performed By: #### PHOS, MG, CBC, CMP ####[address]Mean Corpuscular HGB Conc31.9 g/dLLow32.5-35.6The [facility] Physician GroupComment on above:Performed By: #### PHOS, MG, CBC, CMP ####[place] [address] USAMonocytes (Bld) [#/Vol]1.0 10*3/uLHigh0.0-0.8The [facility] Physician GroupComment on above: Performed By: #### PHOS, MG, CBC, CMP ####[place] [address] USAMonocytes/100 WBC (Bld)12.4 %Normal.The [facility] Physician GroupComment on above:Performed By: #### PHOS, MG, CBC, CMP ####[address] Neutrophils (Bld) [#/Vol]5.6 10*3/uLNormal1.8-7.7The [facility] Comment on above:Performed By: #### PHOS, MG, CBC, CMP ####[place] [address] USANeutrophils/100 WBC (Bld)67.6 %Normal.The [facility] Physician GroupComment on above:Performed By: #### PHOS, MG, CBC, CMP ####[place] [address] USANRBC%0.0 /100{WBC}Normal0-0.5The [facility] Physician GroupComment on above:Performed By: #### PHOS, MG, CBC, CMP ####[place] [address] USAPlatelet mean volume (Bld) [Entitic vol]7.9 fLNormal6.6-10.1The [facility] Physician GroupComment on above:Performed By: #### PHOS, MG, CBC, CMP ####[place] [address] USAPlatelets (Bld) [#/Vol]361 10*3/zQYcsrzj580-343Sin [facility] Physician GroupComment on above:Performed By: #### PHOS, MG, CBC, CMP ####[place] [address] USARBC (Bld) [#/Vol]3.83 10*6/uLLow3.90-5.60The [facility] Physician GroupComment on above:Performed By: #### PHOS, MG, CBC, CMP ####[place] [address] USAWBC (Bld) [#/Vol]8.3 10*3/uLNormal 4.1-10.5The [facility] Physician GroupComment on above:Performed By: #### PHOS, MG, CBC, CMP ####[place] [address] USAComprehensive Metabolic Panelon 88-54-8123Ezvelgg [Mass/Vol]3.3 g/dLLow 3.5-5.7The [facility] Physician GroupComment on above:Performed By: #### PHOS, MG, CBC, CMP ####[place] [address] USAAlbumin/Globulin [Mass ratio]1.2 {ratio}NormalThe [facility] Physician GroupComment on above:Performed By: #### PHOS, MG, CBC, CMP ####[address] [place] [address] USAALP [Catalytic activity/Vol]98 U/IYbeepc65-905Jaz [facility] Physician GroupComment on above: Performed By: #### PHOS, MG, CBC, CMP ####[address] [place] [address] USAALT [Catalytic activity/Vol]10 U/LNormal7-52 The [facility] Physician GroupComment on above:Performed By: #### PHOS, MG, CBC, CMP ####[address] [place] [address] [place] Anion gap [Moles/Vol]9.9 mmol/LNormal6.0-15.0The [facility] Comment on above:Performed By: #### PHOS, MG, CBC, CMP ####[address] [address] USAAST [Catalytic activity/Vol]14 U/VRrfglt19-97Lrn [facility] Physician GroupComment on above:Performed By: #### PHOS, MG, CBC, CMP ####[address] [address] USABilirubin [Mass/Vol]0.3 mg/dLNormal0.3-1.0The [facility] Physician GroupComment on above:Performed By: #### PHOS, MG, CBC, CMP ####[address] [address] USACalcium [Mass/Vol]8.6 mg/dLNormal8.6-10.3The [facility] Physician GroupComment on above:Performed By: #### PHOS, MG, CBC, CMP ####[address] [address] USAChloride [Moles/Vol]107 mmol/JQvazfa63-170Rmd [facility] Physician GroupComment on above:Performed By: #### PHOS, MG, CBC, CMP ####[address] [address] USACO2 [Moles/Vol]25.2 mmol/ECfzaqg69.0-31.0The [facility] Physician GroupComment on above:Performed By: #### PHOS, MG, CBC, CMP ####[place] [address] USACreatinine [Mass/Vol]1.49 mg/dLHigh 0.70-1.30The [facility] Physician [facility] HospitalComment on above:Performed By: #### PHOS, MG, CBC, CMP ####[place] [address] USACreatinine Clr Calc Gheoxjsg11.31NoNovant Health [facility] Physician Group Comment on above:Performed By: #### PHOS, MG, CBC, CMP ####[place] [address] USAGFR/1.73 sq M.predicted MDRD (S/P/Bld) [Vol rate/Area]54.062 mL/min/{1.73_m2}NormalThe [facility] Physician GroupComment on above:Performed By: #### PHOS, MG, CBC, CMP ####[place] [address] USAGlobulin (S) [Mass/Vol]2.8 g/dLHCA Florida [facility]vied[facility] Physician [facility] HospitalComment on above:Performed By: #### PHOS, MG, CBC, CMP ####[place] [address] USAGlucose [Mass/Vol]105 mg/dHFazi29-558Oew [facility] Physician GroupComment on above:Result Comment: Random Glucose Reference Range is dependent on time and content of last meal. Glucose of more than 200 mg/dL in a nonstressed, ambulatory subject supports the diagnosis of Diabetes Mellitus. ADA recommended reference rangePerformed By: #### PHOS, MG, CBC, CMP ####[place] [address] [place] Potassium [Moles/Vol]4.1 mmol/LNormal3.5-5.1The [facility] Physician GroupComment on above:Performed By: #### PHOS, MG, CBC, CMP ####[place] [address] USAProtein [Mass/Vol]6.1 g/dLLow6.4-8.9 The [facility] Physician GroupComment on above:Performed By: #### PHOS, MG, CBC, CMP ####[facility] [address] Sodium [Moles/Vol]138 mmol/NTkyrts118-544Lle [facility] Physician [facility] HospitalComment on above:Performed By: #### PHOS, MG, CBC, CMP ####[facility] [address] [place] [address] USAUrea nitrogen [Mass/Vol]24 mg/dLNormal [facility] Physician [facility] HospitalComment on above:Performed By: #### PHOS, MG, CBC, CMP ####[facility] [place] [address] USAGlucose Poct Glucometerson 54-62-9375Fluixhr [Mass/Vol]151 mg/dLNoNovant Health Pender [facility] Center Physician [facility] HospitalComment on above:Result Comment: Random Glucose Reference Range is dependent on time and content of last meal. Glucose of more than 200 mg/dL in a nonstressed, ambulatory subject supports the diagnosis of Diabetes Mellitus.PERFORMED BY:[address] [place], [place] [phone] MEDICAL BRISA LOBATO M.D. Performed By: #### GLULS ####Point of Care testing,Glucose [Mass/Vol]106 mg/dL NormalMartin Memorial Health Systems Physician GroupComment on above:Result Comment: Random Glucose Reference Range is dependent on time and content of last meal. Glucose of more than 200 mg/dL in a nonstressed, ambulatory subject supports the diagnosis of Diabetes Mellitus.PERFORMED BY:[address] [place], [place] [phone] MEDICAL DIRECTORCLIFFORD LOBATO M.D.Performed By: #### GLULS ####Point of Care testing, Glucose [Mass/Vol]132 mg/dLHCA Florida Oviedo [facility] Center Physician GroupComment on above: Result Comment: Random Glucose Reference Range is dependent on time and content of last meal. Glucose of more than 200 mg/dL in a nonstressed, ambulatory subject supports the diagnosis of Diabetes Mellitus.PERFORMED BY:[address] [place], [place] [phone] MEDICAL DIRECTORCLIFFORD LOBATO M.D.Performed By: #### GLULS ####Point of Care testing,Icgwnmo8Pxl3: Cleaned MeterNormalThe [facility] Physician GroupComment on above:Result Comment: PERFORMED BY:[address] [place], [place] [phone] MEDICAL DIRECTORCLIFFORD LOBATO M.D. Performed By: #### GLULS ####Point of Care testing,Glucose [Mass/Vol]151 mg/dL NormalThe [facility] Physician GroupComment on above:Result Comment: Random Glucose Reference Range is dependent on time and content of last meal. Glucose of more than 200 mg/dL in a nonstressed, ambulatory subject supports the diagnosis of Diabetes Mellitus.Performed By: #### GLULS ####Point of Care testing,Magnesiumon 42-08-8745Mfhrryppj [Mass/Vol]1.4 mg/dLLow1.9-2.7The [facility] Physician GroupComment on above:Result Comment: PERFORMED BY:[place] [address] [place], [place] [phone] MEDICAL DIRECTORCLIFFORD LOBATO M.D.Performed By: #### PHOS, MG, CBC, CMP ####[address] [address] USANo Panel InformationOrdered By: João Powell on 92-83-9696Mjasyss Glucose Comment Glu2: cleaned [facility] HospitalGlu2: cleaned [facility] HospitalPhosphoruson 40-04-4295Nxkaanhdb [Mass/Vol]3.1 mg/dL Normal2.5-4.5The [facility] Physician GroupComment on above:Performed By: #### PHOS, MG, CBC, CMP ####[address] [address] USAUS carotid doppler BIon 32-41-5380TC carotid doppler BINormalThe [facility] Physician GroupABO/Rh Retypeon 90-48-9614NOW/RH Recheck ResultPositive NormalThe [facility] Physician [facility] HospitalComment on above:Result Comment: PERFORMED BY:[address] [place], [place] [phone] MEDICAL DIRECTORCLIFFORD LOBATO M.D.Comprehensive Metabolic Panelon 74-22-4529Rudgaem [Mass/Vol]3.3 g/dLLow3.5-5.7The [facility] Physician [facility] Comment on above:Performed By: #### MG, PHOS, SCAN CBC, CMP ####[address] [address] USAAlbumin/Globulin [Mass ratio]1.1 {ratio}NormalThe [facility] Physician [facility] HospitalComment on above: Performed By: #### MG, PHOS, SCAN CBC, CMP ####[address] [address] USAALP [Catalytic activity/Vol]105 U/L Ovsw86-546Gbe [facility] Physician GroupComment on above:Performed By: #### MG, PHOS, SCAN CBC, CMP ####[address] [address] USAALT [Catalytic activity/Vol]9 U/LNormal7-52The [facility] Physician [facility] HospitalComment on above:Performed By: #### MG, PHOS, SCAN CBC, CMP ####[address] [address] USAAnion gap [Moles/Vol] 11.1 mmol/LNormal6.0-15.0The [facility] Physician GroupComment on above:Performed By: #### MG, PHOS, SCAN CBC, CMP ####[address] [address] USAAST [Catalytic activity/Vol]11 U/LJda92-86Xxn [facility] HospitalComment on above:Performed By: #### MG, PHOS, SCAN CBC, CMP ####[address] [address] [place] Bilirubin [Mass/Vol]0.2 mg/dLLow0.3-1.0The [facility] Physician GroupComment on above:Performed By: #### MG, PHOS, SCAN CBC, CMP ####[place] [address] USACalcium [Mass/Vol]8.3 mg/dLLow8.6-10.3 The [facility] Physician GroupComment on above:Performed By: #### MG, PHOS, SCAN CBC, CMP ####[place] [address] USAChloride [Moles/Vol]104 mmol/WFbjdlx13-567Ofd [facility] Physician [facility] Comment on above:Performed By: #### MG, PHOS, SCAN CBC, CMP ####[place] [address] USACO2 [Moles/Vol]27.6 mmol/LIgcgou93.0-31.0The [facility] Physician GroupComment on above:Performed By: #### MG, PHOS, SCAN CBC, CMP ####[place] [address] USACreatinine [Mass/Vol]1.83 mg/dLHigh0.70-1.30The [facility] Physician GroupComment on above:Performed By: #### MG, PHOS, SCAN CBC, CMP ####[place] [address] [place] Creatinine Clr Calc Orsmonlc20.29NoNovant Health [facility]ender [facility] Center Physician GroupComment on above:Performed By: #### MG, PHOS, SCAN CBC, CMP ####[place] [address] USAGFR/1.73 sq M.predicted MDRD (S/P/Bld) [Vol rate/Area]42.245 mL/min/{1.73_m2}NormalThe [facility] Group Comment on above:Performed By: #### MG, PHOS, SCAN CBC, CMP ####[place] [address] USAGlobulin (S) [Mass/Vol]2.9 g/dLNoNovant Health Pender [facility] Center Physician GroupComment on above:Performed By: #### MG, PHOS, SCAN CBC, CMP ####[address] [place] [address] USAGlucose [Mass/Vol]150 mg/hMMjeb66-218Gnt [facility] Physician GroupComment on above:Result Comment: Random Glucose Reference Range is dependent on time and content of last meal. Glucose of more than 200 mg/dL in a nonstressed, ambulatory subject supports the diagnosis of Diabetes Mellitus. ADA recommended reference rangePerformed By: #### MG, PHOS, SCAN CBC, CMP ####[address] [place] [address] [place] Potassium [Moles/Vol]3.7 mmol/LNormal3.5-5.1The [facility] Physician GroupComment on above:Performed By: #### MG, PHOS, SCAN CBC, CMP ####[address] [place] [address] USAProtein [Mass/Vol]6.2 g/dLLow 6.4-8.9The [facility] Physician GroupComment on above:Performed By: #### MG, PHOS, SCAN CBC, CMP ####[address] [address] USASodium [Moles/Vol]139 mmol/DXsfmne918-799Civ [facility] Physician GroupComment on above:Performed By: #### MG, PHOS, SCAN CBC, CMP ####[address] [address] USAUrea nitrogen [Mass/Vol]36 mg/dLHigh7-25The [facility] Physician GroupComment on above: Performed By: #### MG, PHOS, SCAN CBC, CMP ####[address] [place] [address] USAECH echo transthoracicon 48-15-8957TAS echo transthoracicNormalThe [facility] Physician GroupFerritinon 03-04-2024 AidyzawkDlbxny05.9-336.2The [facility] Physician GroupComment on above:Order Comment: Comment addResult Comment: Specimen hemolyzed, redraw requested Performed By: #### TSH3, LILA, FE and TIBC, [id number] ####[facility] [address] [place] [address] USAFerritin [Mass/volume] in Serum or PlasmaOrdered By: João Powell on 72-81-8614Acuswexa [Mass/Vol]7.7 ng/mLLow23.9-336.2FWhite HospitalFerritin [Mass/Vol]Ferritin [Mass/volume] in Serum or LrqxbyIke42.9-336.2FWhite Hospital Folate [Mass/volume] in Serum or PlasmaOrdered By: João Powell on 03-04-2024 Folate [Mass/Vol]7.8 ng/mL>5.9Tuscarawas HospitalComment on above: Folate reference range: >5.9 ng/mlThe WHO technical consultation on folate and vitamin r53eeqrlsoyevwi has determined that folate concentrations lessthan 4 ng/ml are considered deficient.Folate [Mass/Vol]Folate [Mass/volume] in Serum or Plasma>5.9Tuscarawas HospitalComment on above:Folate reference range: >5.9 ng/mlThe WHO technical consultation on folate and vitamin j80tqtvhjc ncies has determined that folate concentrations lessthan 4 ng/ml are considered deficient.Glucose Poct Glucometerson 69-89-5361Lzqkqtf3Kfd6: Cleaned MeterNormal The [facility] Physician GroupComment on above:Result Comment: PERFORMED BY:[facility] [place], [place] [phone] MEDICAL DIRECTORCLIFFORD LOBATO M.D.Performed By: #### GLULS ####Point of Care testing,Glucose [Mass/Vol]213 mg/dLNoNovant Health Pender [facility] Center Physician GroupComment on above:Result Comment: Random Glucose Reference Range is dependent on time and content of last meal. Glucose of more than 200 mg/dL in a nonstressed, ambulatory subject supports the diagnosis of Diabetes Mellitus. Performed By: #### GLULS ####Point of Care testing,Glucose [Mass/Vol]279 mg/dL NormalThe [facility] Physician GroupComment on above:Result Comment: Random Glucose Reference Range is dependent on time and content of last meal. Glucose of more than 200 mg/dL in a nonstressed, ambulatory subject supports the diagnosis of Diabetes Mellitus.PERFORMED BY:[address] [place], [place] [phone] MEDICAL DIRECTORCLIFFORD LOBATO M.D.Performed By: #### GLULS ####Point of Care testing, Glucose [Mass/Vol]236 mg/dLNoNovant Health Pender Medical Center Physician GroupComment on above: Result Comment: Random Glucose Reference Range is dependent on time and content of last meal. Glucose of more than 200 mg/dL in a nonstressed, ambulatory subject supports the diagnosis of Diabetes Mellitus.PERFORMED BY:[address] [place], [place] [phone] MEDICAL DIRECTORCLIFFORD LOBATO M.D.Performed By: #### GLULS ####Point of Care testing,Glucose [Mass/Vol]242 mg/dLNoNovant Health Pender Medical Center Physician GroupComment on above:Result Comment: Random Glucose Reference Range is dependent on time and content of last meal. Glucose of more than 200 mg/dL in a nonstressed, ambulatory subject supports the diagnosis of Diabetes Mellitus.PERFORMED BY:[address] [place], [place] [phone] MEDICAL DIRECTORCLIFFORD LOBATO M.D.Performed By: #### GLULS ####Point of Care testing,Iron [Mass/volume] in Serum or PlasmaOrdered By: João Powell on 37-71-4632Caip [Mass/Vol]13 ug/kQWfx20-087RgfoydqzeTuscarawas HospitalComment on above:Order Comment: Comment addPerformed By: #### TSH3, LILA, FE and TIBC, [id number] ####[address] [address] USAIron [Mass/Vol]Iron [Mass/volume] in Serum or Plasma Gdp90-780BmtaanglvTuscarawas HospitalIron and TIBC Profileon 03-04-2024% Iron Saturation3.2 %Oxo88-97Qlx [facility] Physician GroupComment on above:Order Comment: Comment addPerformed By: #### TSH3, LILA, FE and TIBC, [id number] ####[address] [place] [address] USATotal Iron Binding Epclgjiz504 ug/sQKiilup944-466MovEast Mississippi State HospitalComment on above:Order Comment: Comment addPerformed By: #### TSH3, LILA, FE and TIBC, [id number] ####[address] [address] USAIron binding capacity [Mass/volume] in Serum or PlasmaOrdered By: João Powell on 72-02-6319Iubz binding capacity [Mass/Vol]403 ug/dS304-808LjuylbbxxTuscarawas HospitalIron saturation [Mass Fraction] in Serum or PlasmaOrdered By: João Powell on 39-19-4403Eupm saturation [Mass fraction]3.2 %Mbr32-25 [facility]as HospitalLeukoReduced RBCon 87-72-6241AbcekEphwnxm RBC TRANSFUSED 03/04/24 1657NormalThe [facility] Physician [facility] HospitalMR angio MR brain w/o on 70-42-0232AK angio MR brain w/oNormalMartin Memorial Health Systems Physician [facility] HospitalMagnesiumon 07-13-7454Vmllylypm [Mass/Vol]1.3 mg/dLLow1.9-2.7The [facility] Physician [facility] Comment on above:Result Comment: PERFORMED BY:[address] [place], [place] [phone] MEDICAL DIRECTORCLIFFORD LOBATO M.D.Performed By: #### MG, PHOS, SCAN CBC, CMP ####[address] [address] USAOvalocyte detection Ordered By: João Powell on 99-12-0763Hrnaudzlpm LM Ql (Bld)SlightTuscarawas HospitalOvalocytes [Presence] in Blood by Light microscopyOrdered By: João Powell on 83-81-7489Pzltxwulcd LM Ql (Bld)Ovalocyte detection [facility]as HospitalPhosphoruson 51-01-5191Xwxgtarnc [Mass/Vol]3.5 mg/dLNormal2.5-4.5The [facility] Physician GroupComment on above:Performed By: #### MG, PHOS, SCAN CBC, CMP ####[address] [address] USARedraw Ferritinon 56-80-5668Mjwrlr Ferritin7.7 ng/mL Low23.9-336.2The [facility] Physician GroupComment on above:Performed By: #### TSH3, REDRAW B12, REDRAW LILA, REDRAW FOLATE ####[address] [address] USARedraw Folateon 96-13-6267Ujxbah Folate7.8 ng/mLNormal>5.9The [facility] Physician GroupComment on above:Result Comment: Folate reference range: >5.9 ng/ml The WHO technical consultation on folate and vitamin b12 deficiencies has determined that folate concentrations less than 4 ng/ml are considered deficient.Performed By: #### TSH3, REDRAW B12, REDRAW LILA, REDRAW FOLATE ####[address] [address] USAScan and CBCon 26-06-1691Wtmjsozefmts Ql (Bld) ModerateNormalThe [facility] Physician GroupComment on above:Performed By: #### MG, PHOS, SCAN CBC, CMP ####[address] [address] USABasophils (Bld) [#/Vol]0.1 10*3/uLNormal0.0-0.2The [facility] Physician GroupComment on above:Performed By: #### MG, PHOS, SCAN CBC, CMP ####[address] [address] [place] Basophils/100 WBC (Bld)2.4 %Normal.The [facility] Physician GroupComment on above:Performed By: #### MG, PHOS, SCAN CBC, CMP ####[address] [address] USAEosinophils (Bld) [#/Vol]0.2 10*3/uL Normal0.0-0.45The [facility] Physician GroupComment on above:Performed By: #### MG, PHOS, SCAN CBC, CMP ####[place] [address] USAEosinophils/100 WBC (Bld)3.6 %Normal.The [facility] Physician GroupComment on above:Performed By: #### MG, PHOS, SCAN CBC, CMP ####[address] Erythrocyte distribution width (RBC) [Ratio]20.8 %High12.0-14.8The [facility] Physician GroupComment on above:Performed By: #### MG, PHOS, SCAN CBC, CMP ####[address] Hematocrit (Bld) [Volume fraction]23.7 %Low38.8-50.0The [facility] Physician GroupComment on above:Performed By: #### MG, PHOS, SCAN CBC, CMP ####[place] [address] USAHemoglobin (Bld) [Mass/Vol]7.4 g/dLLow13.0-17.0The [facility] Physician GroupComment on above: Performed By: #### MG, PHOS, SCAN CBC, CMP ####[place] [address] USAHypochromasiaSlightNormalThe [facility] Physician GroupComment on above:Performed By: #### MG, PHOS, SCAN CBC, CMP ####[address] Lymphocytes (Bld) [#/Vol]1.3 10*3/uLNormal1.00-4.8The [facility] Physician Group Comment on above:Performed By: #### MG, PHOS, SCAN CBC, CMP ####[place] [address] USALymphocytes/100 WBC (Bld)22.8 %Normal.The [facility] Physician GroupComment on above:Performed By: #### MG, PHOS, SCAN CBC, CMP ####[id number] [facility] (RBC) [Entitic mass]21.8 pgLow27.5-35.2The [facility] Physician GroupComment on above:Performed By: #### MG, PHOS, SCAN CBC, CMP ####[address] (RBC) [Entitic vol]69.5 fLLow83.5-101The [facility] Physician GroupComment on above:Performed By: #### MG, PHOS, SCAN CBC, CMP ####[place] [address] USAMean Corpuscular HGB Conc31.3 g/dLLow 32.5-35.6The [facility] Physician GroupComment on above:Performed By: #### MG, PHOS, SCAN CBC, CMP ####[place] [address] USAMonocytes (Bld) [#/Vol]0.9 10*3/uLHigh0.0-0.8The [facility] Physician GroupComment on above:Performed By: #### MG, PHOS, SCAN CBC, CMP ####[place] [address] USAMonocytes/100 WBC (Bld)16.7 %Normal.The [facility] Physician GroupComment on above:Performed By: #### MG, PHOS, SCAN CBC, CMP ####[place] [address] USANeutrophils (Bld) [#/Vol]3.0 10*3/uLNormal1.8-7.7The [facility] Physician GroupComment on above:Performed By: #### MG, PHOS, SCAN CBC, CMP ####[place] [address] USANeutrophils/100 WBC (Bld)54.5 %Normal.The [facility] Physician GroupComment on above:Performed By: #### MG, PHOS, SCAN CBC, CMP ####[place] [address] USANRBC%0.3 /100{WBC}Normal0-0.5The [facility] Physician GroupComment on above:Performed By: #### MG, PHOS, SCAN CBC, CMP ####[address] OvalocytesSlightHCA Florida Oviedo [facility] Center Physician GroupComment on above:Performed By: #### MG, PHOS, SCAN CBC, CMP ####[place] [address] USAPlatelet EstimateNormalNormalNormHCA Florida Central Tampa Emergency Physician GroupComment on above:Performed By: #### MG, PHOS, SCAN CBC, CMP ####[address] Platelet mean volume (Bld) [Entitic vol]8.2 fLNormal6.6-10.1The [facility] Physician GroupComment on above:Performed By: #### MG, PHOS, SCAN CBC, CMP ####[address] Platelet MorphologyNormalNormalHCA Florida Ovied[facility] Physician GroupComment on above:Result Comment: PERFORMED BY:[address] [place], [place] [phone] MEDICAL DIRECTORCLIFFORD LOBATO M.D. Performed By: #### MG, PHOS, SCAN CBC, CMP ####[place] [address] USAPlatelets (Bld) [#/Vol]394 10*3/uL Zdtdtj095-067Vdf [facility] Physician GroupComment on above:Performed By: #### MG, PHOS, SCAN CBC, CMP ####[address]PolychromasiaSFormerly [facility] Physician GroupComment on above:Performed By: #### MG, PHOS, SCAN CBC, CMP ####[place] [address] USARBC (Bld) [#/Vol]3.41 10*6/uLLow3.90-5.60The [facility] Physician GroupComment on above:Performed By: #### MG, PHOS, SCAN CBC, CMP ####[facility] [place] [address] USAWBC (Bld) [#/Vol]5.5 10*3/uLNormal4.1-10.5The [facility] Physician GroupComment on above:Performed By: #### MG, PHOS, SCAN CBC, CMP ####[address] [place] [address] [facility] Serum or plasma iron binding capacity measurement (mass/volume)Ordered By: João Powell on 48-87-7073Yate binding capacity [Mass/Vol]Iron binding capacity [Mass/volume] in Serum or Uldgqu014-553CtvobzfdsSelect Medical Cleveland Clinic Rehabilitation Hospital, Beachwooderum or plasma iron saturation measurement (mass fraction)Ordered By: João Powell on 50-00-6602Nhhd saturation [Mass fraction]Iron saturation [Mass Fraction] in Serum or AqkljqWqe86-83WamgjmfdgTuscarawas HospitalThyroid Stimulating Hormoneon 55-38-8240Lfgtfpr Stimulating HormoneNormal0.45-5.33The [facility] Physician GroupComment on above:Order Comment: Comment addResult Comment: Specimen hemolyzed, redraw requestedPERFORMED BY:[address] [place], [place] [phone] MEDICAL DIRECTORCLIFFORD LOBATO M.D.Performed By: #### TSH3, LILA, FE and TIBC, [id number] ####[address] [place] [address] [facility] Thyrotropin [Units/volume] in Serum or PlasmaOrdered By: João Powell on 54-13-1853JZS Qn2.90 m[IU]/LNormal0.45-5.33[facility] Comment on above:Result Comment: PERFORMED BY:[address] [place], [place] [phone] MEDICAL DIRECTORCLIFFORD LOBATO M.D.Performed By: #### TSH3, REDRAW B12, REDRAW LILA, REDRAW FOLATE ####[address] [place] [address] [facility] TSH QnThyrotropin [Units/volume] in Serum or Plasma0.45-5.33T[facility]carawas HospitalTransferrin [Mass/volume] in Serum or PlasmaOrdered By: João Powell on 91-86-3725Fnztuzbdklk [Mass/Vol]288 mg/cXWrophg405-455Qygvwhgir59 Howard StreetComment on above:Order Comment: Comment addPerformed By: #### TSH3, LILA, FE and TIBC, [id number] ####[address] [address] USATransferrin [Mass/Vol]Transferrin [Mass/volume] in Serum or Jabxnx542-003Bpcobefyv[address] [place], [place] [address]Type and Screenon 64-83-1991SIE and Rh group Nom (Bld)Blood group O Rh(D) positiveNormalThe [facility] Physician GroupComment on above:Order Comment: Number of units to transfuse now? 1Result Comment: PERFORMED BY:[address] [place], [place] [phone] MEDICAL DIRECTORCLIFFORD LOBATO M.D.Vit. B12/Folate Profileon 86-58-1198MuvoarGdvrpb>5.9The [facility] Physician GroupComment on above:Order Comment: Comment addResult Comment: Specimen hemolyzed, redraw requested Folate reference range: >5.9 ng/ml The WHO technical consultation on folate and vitamin b12 deficiencies has determined that folate concentrations less than 4 ng/ml are considered deficient.PERFORMED BY:[address] [place], [place] [phone] MEDICAL DIRECTORCLIFFORD LOBATO M.D.Performed By: #### TSH3, LILA, FE and TIBC, [id number] ####[address] [place] [address] USAVitamin E37Ubjzco797-561Ocw [facility] Physician GroupComment on above:Order Comment: Comment addResult Comment: Specimen hemolyzed, redraw requestedPerformed By: #### TSH3, LILA, FE and TIBC, [id number] ####[address] StreetVitamin B12 ser/plasOrdered By: João Powell on 99-29-2296Iatzsqhyz (Vitamin B12) [Mass/Vol]170 pg/hFShf854-774Shjeeoktb[address] [place], [place] [address]Comment on above:Performed By: #### TSH3, REDRAW B12, REDRAW LILA, REDRAW FOLATE ####[address] [place] [id number] [facility] Cobalamin (Vitamin B12) [Mass/Vol]Vitamin B12 ser/ygpzSxs059-668Bizyqdzyd[address] [place], [place] [address]XR knee RT 2Von 87-21-1999CP knee RT 2VNoNovant Health [facility]ender [facility] Center Physician GroupAnisocytosis [Presence] in Blood by Light microscopy Ordered By: Kait Dan on 99-26-3062Bqmjbikzxooi Ql (Bld)MarkedNormal [facility] HospitalComment on above:Performed By: #### HS TROP, SCAN CBC, BNP, BMP ####[place] [address] USAAppearance of UrineOrdered By: Kait Dan on 03-03-2024 Appearance (U)Urine appearanceCleOhio State East HospitalAutomated basophil %Ordered By: Kait Dan on 98-87-3372Sadpkflwb/100 WBC (Bld)1.7 % Normal.[facility]carawas HospitalComment on above:Performed By: #### HS TROP, SCAN CBC, BNP, BMP ####[id number] USAAutomated basophil countOrdered By: Kait Dan on 62-57-2860Zbmjrcmlj (Bld) [#/Vol]0.1 10*3/uLNormal0.0-0.2FWhite HospitalComment on above:Performed By: #### HS TROP, SCAN CBC, BNP, BMP ####[address] [facility] Automated blood monocyte countOrdered By: Kait Dan on 52-20-7380Xiqqsdxfa (Bld) [#/Vol]0.8 10*3/uLNormal0.0-0.8T[facility]carawas HospitalComment on above:Performed By: #### HS TROP, SCAN CBC, BNP, BMP ####[address] [place] [address] USAAutomated eosinophil %Ordered By: Kait Dan on 54-87-8646Yaalgvowgsg/100 WBC (Bld)3.2 %Normal.[facility]aw[facility] HospitalComment on above:Performed By: #### HS TROP, SCAN CBC, BNP, BMP ####[address] [place] [address] USAAutomated eosinophil countOrdered By: Kait Dan on 61-45-6218Olybpfyuoxq (Bld) [#/Vol]0.2 10*3/uLNormal0.0-0.45T[facility]carawas HospitalComment on above:Performed By: #### HS TROP, SCAN CBC, BNP, BMP ####[place] [address] USAAutomated monocyte %Ordered By: Kait Dan on 61-23-7438Ovkjwktwg/100 WBC (Bld)11.3 %Normal.T[facility]awas HospitalComment on above:Performed By: #### HS TROP, SCAN CBC, BNP, BMP ####[place] [address] USAAutomated neutrophil %Ordered By: Kait Dan on 04-44-0620Ylopymahwqd/100 WBC (Bld)65.6 %Normal.[facility]awas HospitalComment on above: Performed By: #### HS TROP, SCAN CBC, BNP, BMP ####[place] [address] USABNP ser/plasOrdered By: Kait Dan on 10-23-9371Ybfaytlnlbr peptide B (Bld) [Mass/Vol]23.0 pg/mLNormal5-100 [facility] HospitalComment on above:Result Comment: PERFORMED BY:[address] [place], [place] [phone] MEDICAL DIRECTORCLIFFORD LOBATO M.D.Performed By: #### HS TROP, SCAN CBC, BNP, BMP ####[address] [place] [address] USABasic Metabolic Panelon 20-47-8330Ouflmuzwvk Clr Calc Jcbyiigx56.86 NormalMartin Memorial Health Systems Physician GroupComment on above:Result Comment: PERFORMED BY:[address] [place], [place] [phone] MEDICAL DIRECTORCLIFFORD LOBATO M.D.Performed By: #### HS TROP, SCAN CBC, BNP, BMP ####[address] [address] USAGFR/1.73 sq M.predicted MDRD (S/P/Bld) [Vol rate/Area]38.669 mL/min/{1.73_m2}[facility] Physician GroupComment on above:Performed By: #### HS TROP, SCAN CBC, BNP, BMP ####[address] [address] USABilirubin Test strip Ql (U)Ordered By: Kait Dan on 29-45-4252Pqgarwrkd Ql (U)NegativeNegWayne HospitalBilirubin Ql (U)Bilirubin.total [Presence] in Urine by Test stripNegative [facility]as HospitalCOVID CepheidOrdered By: Kait Dan on 17-08-8439JVVA-CoV-2 (COVID-19) Ab IA QlNegativeNegWayne HospitalComment on above:This is a duplicate Cepheid Xpert Xpress CoV- 2/Flu/RSV Plus RNA by RT-PCR result to be used for statistical tracking purpose only.SARS-CoV-2 (COVID-19) RNA NELLY+probe Ql (Unsp spec)[facility] Medical CenterComment on above:Performed By: #### CEPHEID NEG, UA, COVID19 FLU RSV ####[address] [place] [address] SARS-CoV-2 (COVID-19) RNA NELLY+probe Ql (Unsp spec)NegativeNormalNegative [facility]as HospitalComment on above:Result Comment: This is a duplicate Cepheid Xpert Xpress CoV-2/Flu/RSV Plus RNA by RT-PCR result deborah used for statistical tracking purpose only.PERFORMED BY:[address] [place], [place] [phone] MEDICAL DIRECTORCLIFFORD LOBATO M.D.Performed By: #### CEPHEID NEG, UA, COVID19 FLU RSV ####[facility] [address] [place] [address] USACOVID Cepheid NegativeOrdered By: Kait Dan on 36-00-2758JJLQ-CoV-2 (COVID-19) Ab IA QlCOVID CepheidNegativeTuscarawas HospitalComment on above: This is a duplicate Cepheid Xpert Xpress CoV-2/Flu/RSV Plus RNA by RT-PCR result to be used for statistical tracking purpose only.CT abdomen pelvis w conon 49-86-6265OG abdomen pelvis w [facility] Physician GroupCT head/brain wo conon 68-98-2635WU head/brain wo [facility] Physician GroupCalcium [Mass/volume] in Serum or PlasmaOrdered By: Kait Dan on 83-29-4964Rxrofal [Mass/Vol]8.6 mg/dLNormal8.6-10.3FWhite HospitalComment on above:Performed By: #### HS TROP, SCAN CBC, BNP, BMP ####[facility] [id number] [facility] Capillary blood glucose measurement by glucometer (mass/volume)Ordered By: Kait Dan on 69-72-5394Hsklcub [Mass/Vol]167 mg/dLNoUniversity Hospitals Samaritan Medical CenterComment on above:Random Glucose Reference Range is dependent on time and content of last meal. Glucose of more than 200 mg/dL in a nonstressed, ambulatory subject supports the diagnosis of Diabetes Mellitus.Result Comment: Random Glucose Reference Range is dependent on time and content of last meal. Glucose of more than 200 mg/dL in a nonstressed, ambulatory subject supports the diagnosis of Diabetes Mellitus.PERFORMED BY:[address] [place], [place] [phone] MEDICAL DIRECTORCLIFFORD LOBATO M.D.Performed By: #### GLULS ####Point of Care testing, Carbon dioxide, total [Moles/volume] in Serum or PlasmaOrdered By: Kait Dan on 23-58-0180MK4 [Moles/Vol]24.3 mmol/WRzbsys54.0-31.0Tuscarawas HospitalComment on above:Performed By: #### HS TROP, SCAN CBC, BNP, BMP ####[address] [address] [place] Chloride [Moles/volume] in Serum or PlasmaOrdered By: Kait Dan on 73-50-4336Gmnmigsd [Moles/Vol]103 mmol/MFyqbmi73-371JucupvujgTuscarawas HospitalComment on above:Performed By: #### HS TROP, SCAN CBC, BNP, BMP ####[address] [address] USAColor Auto (U)Ordered By: Kait Dan on 16-82-4225Fqqjl (U)Color of Urine by Auto YellowTuscarawas HospitalColor of Urine by AutoOrdered By: Kait Dan on 51-55-1887Sfwgc (U)ColorlessNormalYellowTuscarawas HospitalComment on above:Order Comment: Name Collection Type:: Clean-Voided MidstreamPerformed By: #### CEPHEID NEG, UA, COVID19 FLU RSV ####[address] [place] [address] USACreatinine [Mass/volume] in Serum or PlasmaOrdered By: Kait Dan on 03-03-2024 Creatinine [Mass/Vol]1.97 mg/dLHigh0.70-1.30[facility] Comment on above:Performed By: #### HS TROP, SCAN CBC, BNP, BMP ####[address] [address] USAECG 12 lead ECGon 86-47-5821LFC 12 lead ECGNoNovant Health Pender Medical Center Physician [facility]ippah County HospitalErythrocyte distribution width [Ratio] by Automated countOrdered By: Kait Dan on 15-54-2935Ngesvvkpjxq distribution width (RBC) [Ratio]20.9 %High12.0-14.8 [facility] HospitalComment on above:Performed By: #### HS TROP, SCAN CBC, BNP, BMP ####[facility] [address] [place] [address] USAErythrocytes [#/volume] in Blood by Automated countOrdered By: Kait Dan on 50-92-1795CXH (Bld) [#/Vol]3.58 10*6/uLLow3.90-5.60T[facility]carawas HospitalComment on above:Performed By: #### HS TROP, SCAN CBC, BNP, BMP ####[facility] [place] [address] USAGlucose Poct Glucometerson 98-43-4690Kezvuby6Tnz8: Cleaned MeterNoMercy Health St. Charles HospitalComment on above:Result Comment: PERFORMED BY:[address] [place], [place] [phone] MEDICAL DIRECTORCLIFFORD LOBATO M.D.Performed By: #### GLULS ####Point of Care testing,Glucose [Mass/Vol]204 mg/dLGillette Children's Specialty HealthcareComment on above:Result Comment: Random Glucose Reference Range is dependent on time and content of last meal. Glucose of more than 200 mg/dL in a nonstressed, ambulatory subject supports the diagnosis of Diabetes Mellitus.Performed By: #### GLULS ####Point of Care testing,Glucose [Mass/volume] in Serum or Plasma Ordered By: Kait Dan on 62-69-4718Ulqbdhu [Mass/Vol]142 mg/vSZojp40-081 [facility] HospitalComment on above:ADA recommended reference rangeRandom Glucose Reference Range is dependent on time and content of last meal. Glucose of more than 200 mg/dL in a nonstressed, ambulatory subject supports the diagnosisof Diabetes Mellitus.Result Comment: Random Glucose Reference Range is dependent on time and content of last meal. Glucose of more than 200 mg/dL in a nonstressed, ambulatory subject supports the diagnosis of Diabetes Mellitus. ADA recommended reference rangePerformed By: #### HS TROP, SCAN CBC, BNP, BMP ####[facility] [address] [place] [address] USAGlucose [Mass/volume] in Urine by Test stripOrdered By: Kait Dan on 95-90-1942Thdnagx Test strip (U) [Mass/Vol]500 mg/dLHighNoMartin Memorial HospitalGlucose Test strip (U) [Mass/Vol]Glucose [Mass/volume] in Urine by Test stripHighNoUniversity Hospitals Samaritan Medical Center Hematocrit [Volume Fraction] of Blood by Automated countOrdered By: Kait Dan on 75-44-6407Hpcyzbcvae (Bld) [Volume fraction]24.7 %Low38.8-50.0 [facility] HospitalComment on above:Performed By: #### HS TROP, SCAN CBC, BNP, BMP ####[facility] [place] [address] USAHemoglobin Test strip Ql (U)Ordered By: Kait Dan on 03-03-2024 Hemoglobin Ql (U)NegativeNegWayne HospitalHemoglobin Ql (U)Hemoglobin [Presence] in Urine by Test stripNegWayne HospitalHemoglobin [Mass/volume] in BloodOrdered By: Kait Dan on 31-83-2798Mfczwaiwnn (Bld) [Mass/Vol]7.8 g/dLLow13.0-17.0T[facility]awas HospitalComment on above:Performed By: #### HS TROP, SCAN CBC, BNP, BMP ####[facility] [place] [address] [place] Hypochromia LM Ql (Bld)Ordered By: Kait Dan on 95-34-3453Qcsadifwbmp Ql (Bld)ModerateTuscarawas HospitalKetones Test strip Ql (U)Ordered By: Kait Dan on 84-52-0874Gugfdfk Ql (U)Ketones [Presence] in Urine by Test stripNegativeTuscarawas HospitalKetones [Presence] in Urine by Test stripOrdered By: Kait Dan on 64-09-9364Zftvgmt Ql (U)Negative NormalNegWayne HospitalComment on above:Order Comment: Name Collection Type:: Clean-Voided MidstreamPerformed By: #### CEPHEID NEG, UA, COVID19 FLU RSV ####[address] [place] [address] USALeukocyte esterase [Presence] in Urine by Test stripOrdered By: Kait Dan on 41-64-8088Uvxnuscgo esterase Test strip Ql (U)NegativeNormalNegative [facility] HospitalComment on above:Order Comment: Name Collection Type:: Clean-Voided MidstreamPerformed By: #### CEPHEID NEG, UA, COVID19 FLU RSV ####[address] [address] [place] Leukocyte esterase Test strip Ql (U)Leukocyte esterase [Presence] in Urine by Test stripNegWayne HospitalLeukocytes [#/volume] corrected for nucleated erythrocytes in Blood by Automated counOrdered By: Kait Dan on 51-37-1385HET corrected for nucl RBC Auto (Bld) [#/Vol]7.2 10*3/uL4.1-10.5FWhite HospitalLeukocytes [#/volume] in Blood by Automated countOrdered By: Kait Dan on 62-34-9680OJR (Bld) [#/Vol]7.2 10*3/uLNormal4.1-10.5FWhite HospitalComment on above:Performed By: #### HS TROP, SCAN CBC, BNP, BMP ####[address] [address] USALymphocytes [#/volume] in Blood by Automated countOrdered By: Kait Dan on 20-02-9880Wifbzhkxohi (Bld) [#/Vol]1.3 10*3/uLNormal1.00-4.8T[facility]awas HospitalComment on above:Performed By: #### HS TROP, SCAN CBC, BNP, BMP ####[address] [place] [address] USALymphocytes/100 leukocytes in Blood by Automated countOrdered By: Kait Dan on 77-84-8598Kdmkdxigkcv/100 WBC (Bld) 18.2 %Normal.Tuscarawas HospitalComment on above:Performed By: #### HS TROP, SCAN CBC, BNP, BMP ####[facility] [id number] [place] [id number] [facility] [Entitic mass] by Automated countOrdered By: Kait Dan on 63-31-0318ISE (RBC) [Entitic mass]21.8 pgLow27.5-35.2FWhite HospitalComment on above:Performed By: #### HS TROP, SCAN CBC, BNP, BMP ####[facility] [id number] Auto (RBC) [Mass/Vol]Ordered By: Kait Dan on 96-28-2868TBHM (RBC) [Mass/Vol]31.6 g/dLLow32.5-35.6FWhite HospitalMCV [Entitic volume] by Automated countOrdered By: Kait Dan on 73-96-3493ECQ (RBC) [Entitic vol]69.0 fLLow83.5-101Tuscarawas HospitalComment on above:Performed By: #### HS TROP, SCAN CBC, BNP, BMP ####[facility] [address] [place] [id number] USAMicrocytes LM Ql (Bld)Ordered By: Kait Dan on 40-02-5706Jrfpkpjfyh Ql (Bld)MarkedTuscarawas HospitalMonocyte distribution width [Entitic volume] in Blood by Automated Ordered By: Kait Dan on 75-02-3484Xsfjgzqq distribution width Auto (Bld) [Entitic vol]17.33 %0.00-20.00Tuscarawas HospitalMonocyte distribution width Auto (Bld) [Entitic vol]Monocyte distribution width [Entitic volume] in Blood by Automated0.00-20.00[facility] Natriuretic peptide B [Mass/Vol]Ordered By: Kait Dan on 03-03-2024 Natriuretic peptide B (Bld) [Mass/Vol]BNP ser/plas5-100Tuscarawas HospitalNeutrophils [#/volume] in Blood by Automated countOrdered By: Kait Dan on 32-83-8096Spplgqtmqzs (Bld) [#/Vol]4.7 10*3/uLNormal1.8-7.7 [facility]awas HospitalComment on above:Performed By: #### HS TROP, SCAN CBC, BNP, BMP ####[facility] Ygx[address] [place] [address] USANitrite Test strip Ql (U)Ordered By: Kait Dan on 03-03-2024 Nitrite Ql (U)NegativeNegativeTuscarawas HospitalNitrite Ql (U) Nitrite [Presence] in Urine by Test stripNegWayne HospitalNo Panel InformationOrdered By: Kait Dan on 00-27-4830Mrmbxdwrx GFR (CKD-EPI)38.669 mL/MinTuscarawas HospitalPharmacy Creatinine Clearance (Chem44.86Tuscarawas HospitalNucleated erythrocytes [Presence] in Blood by Automated countOrdered By: Kait Dan on 03-03-2024 Nucleated RBC Auto Ql (Bld)0.2 /100{WBC}0-0.5FWhite Hospital Platelet adequacy [Presence] in Blood by Light microscopyOrdered By: Kait Dan on 03-17-8734Uiksgjaxu LM Ql (Bld)IncreasedNoUniversity Hospitals Samaritan Medical CenterPlatelet mean volume [Entitic volume] in Blood by Automated count Ordered By: Kait Dan on 55-02-9124Eibzduua mean volume (Bld) [Entitic vol] 7.8 fLNormal6.6-10.1FWhite HospitalComment on above:Performed By: #### HS TROP, SCAN CBC, BNP, BMP ####[facility] Gqy[address] [place] [address] USAPlatelet morphology finding [Identifier] in BloodOrdered By: Kait Dan on 69-97-5035Mffabsdf morphology finding Nom (Bld)NormalFairfield Medical CenterPlatelets [#/volume] in Blood by Automated countOrdered By: Kait Dan on 69-61-0033Qcimffrax (Bld) [#/Vol]452 10*3/dYUihp354-994OoblnfxpsTuscarawas HospitalComment on above: Performed By: #### HS TROP, SCAN CBC, BNP, BMP ####[facility] Bbp[address] [place] [address] USAPolychromasia [Presence] in Blood by Light microscopyOrdered By: Kait Dan on 16-45-4621Rwhphwjlowixa LM Ql (Bld)SlightTuscarawas HospitalPotassium [Moles/volume] in Serum or PlasmaOrdered By: Kait Dan on 23-14-6920Glkbivtpt [Moles/Vol]3.9 mmol/L Normal3.5-5.1FWhite HospitalComment on above:Performed By: #### HS TROP, SCAN CBC, BNP, BMP ####[facility] T[address] [place] [address] USAProtein Test strip (U) [Mass/Vol]Ordered By: Kait Dan on 86-79-7480Vjxzsus (U) [Mass/Vol]NegativeNegativeTuscarawas HospitalProtein (U) [Mass/Vol]Protein [Mass/volume] in Urine by Test strip NegativeTuscarawas HospitalRBC morphologyOrdered By: Kait Dan on 47-36-8897SGN morphology finding Nom (Bld)N/[facility] NorthRespiratory specimen influenza A virus, influenza B virus, respiratory syncytical virOrdered By: Kait Dan on 52-56-4113RIHY-CoV-2 (COVID-19) RNA NELLY+probe Ql (Unsp spec)Respiratory specimen influenza A virus, influenza B virus, respiratory syncytical virTuscarawas Hospital Scan and CBCon 83-67-2764DwvagwhptfooyEjrpcfxsVlogeqEqa [facility] Physician GroupComment on above:Performed By: #### HS TROP, SCAN CBC, BNP, BMP ####[facility] Qxf[address] [place] [address] USAMean Corpuscular HGB Conc31.6 g/dLLow32.5-35.6The [facility] Hospital Physician GroupComment on above:Performed By: #### HS TROP, SCAN CBC, BNP, BMP ####[address] [address] USAMicrocytosisMarkedNoNovant Health Pender Medical Center Physician [place] County HospitalComment on above:Performed By: #### HS TROP, SCAN CBC, BNP, BMP ####[id number] [place] [address] USAMonocytes/100 WBC (Bld)17.33 %Normal0.00-20.00The [facility] Comment on above:Performed By: #### HS TROP, SCAN CBC, BNP, BMP ####[address] [address] USANRBC%0.2 /100{WBC} Normal0-0.5The [facility] Physician [facility] County HospitalComment on above:Performed By: #### HS TROP, SCAN CBC, BNP, BMP ####[address] [address] USAPlatelet EstimateIncreasedNormPalmetto General Hospital Physician [facility] County HospitalComment on above:Performed By: #### HS TROP, SCAN CBC, BNP, BMP ####[address] [address] [place] Platelet MorphologyNormalGainesville VA Medical Center Physician [place] County HospitalComment on above:Result Comment: PERFORMED BY:[address] [place], [place] [phone] MEDICAL DIRECTORCLIFFORD LOBATO M.D. Performed By: #### HS TROP, SCAN CBC, BNP, BMP ####[address] [address] USAPolychromasiaSlightHCA Florida Ovied[facility] Center Physician [place] County HospitalComment on above:Performed By: #### HS TROP, SCAN CBC, BNP, BMP ####[address] [address] USASerum or plasma anion gap determinationOrdered By: Kait Dan on 51-20-3210Ogoug gap [Moles/Vol]14.6 mmol/LNormal6.0-15.0Tuscarawas HospitalComment on above:Performed By: #### HS TROP, SCAN CBC, BNP, BMP ####[address] [address] USASodium [Moles/volume] in Serum or PlasmaOrdered By: Kait Dan on 90-15-3029Nmavpo [Moles/Vol]138 mmol/L Dgrjnl297-617TdtssxkfaTuscarawas HospitalComment on above:Performed By: #### HS TROP, SCAN CBC, BNP, BMP ####[address] [address] USASpecific gravity Test strip (U) [Rel density]Ordered By: Kait Dan on 25-64-9550Pxhcwhjk gravity (U) [Rel density]1.009 1.001-1.030[facility], Beachwoodpecific gravity (U) [Rel density] Specific gravity of Urine by Test strip1.001-1.030Tuscarawas HospitalTroponin I High Sensitivityon 56-47-7873Aqzxihyl I High Sensitivity4.5 pg/mLNormal0.0-20.0The [facility] Hospital Physician GroupComment on above:Result Comment: PERFORMED BY:[address] [address] [address] MUKULDarrianMarySH[place], [place] [phone] MEDICAL DIRECTORCLIFFORD LOBATO M.D.Performed By: #### HS TROP ####[address] [address] USATroponin I High Sensitivity9.2 pg/mLNormal0.0-20.0The [facility] Hospital Physician GroupComment on above:Result Comment: PERFORMED BY:[address] [place]UKULDarrianMaryCHALINO, [place] [phone] MEDICAL DIRECTORCLIFFORD LOBATO M.D.Performed By: #### HS TROP, SCAN CBC, BNP, BMP ####[address] [address] [place] Troponin I.cardiac [Mass/volume] in Serum or Plasma by Detection limit <= 0.01 ng/Ordered By: Kait Dan on 88-35-1235Adrsvkut I.cardiac DL <= 0.01 ng/mL [Mass/Vol]4.5 pg/mL0.0-20.0Tuscarawas HospitalTroponin I.cardiac DL <= 0.01 ng/mL [Mass/Vol]Troponin I.cardiac [Mass/volume] in Serum or Plasma by Detection limit <= 0.01 ng/0.0-20.0Tuscarawas HospitalUrea nitrogen [Mass/volume] in Serum or PlasmaOrdered By: Kait Dan on 88-97-6081Rrce nitrogen [Mass/Vol]46 mg/dLBrockton Hospital-Tuscarawas HospitalComment on above:Performed By: #### HS TROP, SCAN CBC, BNP, BMP ####[address] [address] [place] Urinalysison 64-33-9971Dsxlmevsv,UrineNegativeNormalNegativeThe [facility] Physician GroupComment on above:Order Comment: Name Collection Type:: Clean- Voided MidstreamPerformed By: #### CEPHEID NEG, UA, COVID19 FLU RSV ####[place] [address] USAGlucose Ql (U)500 mg/dLAcuteCare Health System Physician GroupComment on above:Order Comment: Name Collection Type:: Clean-Voided MidstreamPerformed By: #### CEPHEID NEG, UA, COVID19 FLU RSV ####[place] [id number] USANitrite,UrineNegativeNormalNegativeThe [facility] Physician GroupComment on above:Order Comment: Name Collection Type:: Clean- Voided MidstreamPerformed By: #### CEPHEID NEG, UA, COVID19 FLU RSV ####[address] [address] USAOccult Blood,UrineNegativeNormalNegativeThe [facility] Physician GroupComment on above: Order Comment: Name Collection Type:: Clean-Voided MidstreamResult Comment: PERFORMED BY:[address]rianMarySHOWELL, [place] [phone] MEDICAL BRISA LOBATO M.D.Performed By: #### CEPHEID NEG, UA, COVID19 FLU RSV ####[address] [place] [address] USAProtein,UrineNegativeNormalNegativeThe [facility] Physician GroupComment on above:Order Comment: Name Collection Type:: Clean- Voided MidstreamPerformed By: #### CEPHEID NEG, UA, COVID19 FLU RSV ####[address] [address] [place] Specificy [place],Urine1.193Qmhwuo9.001-1.030The [facility] Physician Group Comment on above:Order Comment: Name Collection Type:: Clean-Voided Midstream Performed By: #### CEPHEID NEG, UA, COVID19 FLU RSV ####[place] [id number] USAUrobilinogen,UrineNormalNormal NormalThe [facility] Physician GroupComment on above:Order Comment: Name Collection Type:: Clean-Voided MidstreamPerformed By: #### CEPHEID NEG, UA, COVID19 FLU RSV ####[address] [address] USAUrine appearanceOrdered By: Kait Dan on 22-26-3310Blbkbpoelq (U) ClearKettering Memorial HospitalComment on above:Order Comment: Name Collection Type:: Clean-Voided MidstreamPerformed By: #### CEPHEID NEG, UA, COVID19 FLU RSV ####[place] [id number] USAUrobilinogen Test strip (U) [Mass/Vol]Ordered By: Kait Dan on 35-14-8707Yjevhcbdmhzr (U) [Mass/Vol]Normal mg/dLNoUniversity Hospitals Samaritan Medical CenterUrobilinogen (U) [Mass/Vol]Urobilinogen [Mass/volume] in Urine by Test stripFairfield Medical CenterXR chest 2V*on 37-80-1100RC chest 2V*NormalThe [facility] Physician GrouppH Test strip (U)Ordered By: Kait Dan on 03-53-3376kD (U)pH of Urine by Test strip5.0-9.0Tuscarawas HospitalpH of Urine by Test stripOrdered By: Kait Dan on 03-03-2024 pH (U)5.0 [pH]Normal5.0-9.0Tuscarawas HospitalComment on above: Order Comment: Name Collection Type:: Clean-Voided MidstreamPerformed By: #### CEPHEID NEG, UA, COVID19 FLU RSV ####[facility] [address] [place] [address] USACoding Queryon 59-78-7142Dsagia QueryCoding Query From: Eliz Diaz RN To: Ben Corrigan III, DO; Sent: 02/20/2024 14:33:58 EDT ! Subject: Coding Query Due Date/Time: 02/21/2024 14:33:00 EDT Caller Name: MYRA IPCKARD SR; Caller Number: H Documentation in the medical recordindicates this patient has been admitted with or diagnosed as having: acute blood loss anemia The following is also documented in the medical record: 02/16 Progress note: 4. Anemia Acute Blood loss anemia, possibly post surgical loss hgb has remainedstable post transfusion continue to monitor CBC today [...] Name: MYRA PICKARD SR; Caller Number: H NormalOhiohealth Grady Memorial HospitalGeneral Message Officeon [phone] Message Office General Message Office --- --- --- --- --- --- --- --- --- From: Rosa, DirectInbox To: MYRA PICKARD SR Sent: 02/22/24 02:30:41 AM EDT Subject: Discharge Summary Ready to View A summary regarding your recent visit is available in the Documents section of your health record.[facility] Hospitalurgical Pathology Reporton 65-65-0008Clfyuqal Pathology ReportAshtabula County Medical Center [address] [place] [address]- Surgical Pathology Report Collected Date/Time: 02/12/2024 14:13 EDT Pathologist: Moncho Blood MD Received Date/Time: 02/13/2024 07:26 EDT Simon HERRERA, Mike Montes MD, Mike Cain Surgical Pathology Report - 02/22/2024 14:10 EDT - Auth (Verified) Final Diagnosis RIGHT LOWER EXTREMITY, CEASR-FYM-SLOS AMPUTATION: - Gangrenous ulcer and artery atherosclerosis. - Seborrheic keratosis. - No evidence of osteomyelitis. - Resection margin uninvolved by acute inflammation. (Electronic Signature) Yan. 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 [...] pigmented lesion measuring 0.2 x 0.2 cm. Hot Tar Roofer sections are submitted in a total of ten cassettes: 1-5: Skin and soft tissue ulcerated areas 6-7: Artery 8: Bone near ulceration after decalcification 9-10: Bone from surgical margin after decalcification (DC) Gross of specimen was discussed with Dr. Dunne in Frozen Section Room at 1400. (DC) DC:MCA Microscopic Description Microscopic examination performed unless gross only specified.NormalOhiohealth Grady Memorial HospitalComment on above:Performed By: #### [id number] #### [facility] [address], [place] [address]OOEuu 99-21-9893Sppgq gap [Moles/Vol]8 mmol/LNormal6-16[facility] Memorial HospitalComment on above:Performed By: #### [id number] #### [facility] [address], [place] [address]Sczbhtc [Mass/Vol]8.6 mg/dLLow8.9-11.1FThe University of Toledo Medical CenterComment on above:Performed By: #### [id number] #### [facility] [address], [place] [address]Vbdcbejt [Moles/Vol]100 mmol/NTxm228-882YozpfdOhiohealth Grady Memorial HospitalComment on above:Performed By: #### [id number] #### [facility] [address], [place] [address]NT5 [Moles/Vol]30 mmol/JCfnqoo19-41TfokpqOhiohealth Grady Memorial Hospital Comment on above:Performed By: #### [id number] #### [facility] [address], [place] [address]Ewhgznjyzb [Mass/Vol]1.8 mg/dLHigh0.5-1.3FThe University of Toledo Medical CenterComment on above:Performed By: #### [id number] #### [facility] [address], [place] [address]Bzqplcm [Mass/Vol]169 mg/cHCkmpqd54-124LucjqrOhiohealth Grady Memorial HospitalComment on above:Performed By: #### [id number] #### [facility] [address], [place] [address]Frlczfddn [Moles/Vol]3.7 mmol/LNormal3.5-5.3FThe University of Toledo Medical CenterComment on above:Performed By: #### [id number] #### [facility] [address] [place] [address]Eutakd [Moles/Vol]134 mmol/EEsq441-305LunrogOhiohealth Grady Memorial HospitalComment on above:Performed By: #### [id number] #### [facility] [address] [place] [address]Kltf nitrogen [Mass/Vol]26 mg/dLHigh5-21[facility] Memorial HospitalComment on above:Performed By: #### [id number] #### [facility] [address] [place] [address]Inkc nitrogen/Creatinine [Mass ratio]14 No CwdqwNepesc62-85 [facility] HospitalComment on above:Performed By: #### [id number] #### [facility] [address] [place] [address]NSV w/ Auto Diffon 86-73-5997Cqvsqjvab/100 WBC (Bld)0.7 %Normal 0.0-2.0[facility] Memorial HospitalComment on above:Performed By: #### [id number] #### [facility] [address] [place] [address]Npixsqdoq/Leukocytes Auto (Bld) [Pure # fraction]0.1 E9/LNormal 0.0-0.2FThe University of Toledo Medical CenterComment on above:Performed By: #### [id number] #### [facility] [address] [place] [address]Msojnscxodw (Bld) [#/Vol]0.4 E9/LNormal0.0-0.5FThe University of Toledo Medical CenterComment on above:Performed By: #### [id number] #### [facility] [address] [place] [address]Onsxfydnwsw/100 WBC (Bld)3.6 %Normal0.0-8.0[facility] Memorial HospitalComment on above:Performed By: #### [id number] #### [facility] [address], [place] [address]Roydxysmfly distribution width (RBC) [Ratio]21.4 %High10.9-14.2 [facility] HospitalComment on above:Performed By: #### [id number] #### [facility] [address], [place] [address]Tycbsvtoiu (Bld) [Volume fraction]25.6 %Low37.7-49.0[facility] Memorial HospitalComment on above:Performed By: #### [id number] #### [facility] [address], [place] [address]Ixgbeoviqy (Bld) [Mass/Vol]8.1 g/dLLow13.5-17.5FThe University of Toledo Medical CenterComment on above:Performed By: #### [id number] #### [facility] [address] [place] [address]Opwfupapuae Auto Ql (Bld)PRESENTInvalid Interpretation Code [facility] HospitalComment on above:Performed By: #### [id number] #### [facility] [address] [place] [address]Sjumfolnnxg (Bld) [#/Vol]1.5 E9/LNormal1.0-4.0[facility] Memorial HospitalComment on above:Performed By: #### [id number] #### [facility] [address] [place] [address]Dbqcblagceo/100 WBC (Bld)12.4 %Low14.0-50.0[facility] Memorial HospitalComment on above:Performed By: #### [id number] #### [facility] [address] [place] [address]WAA (RBC) [Entitic mass]22.3 pgLow27.0-34.0[facility] HospitalComment on above:Performed By: #### [id number] #### [facility] [address] [place] [address]OFWZ (RBC) [Mass/Vol]31.5 g/gNSuhwwa77.4-36.0[facility] HospitalComment on above:Performed By: #### [id number] #### [facility] [address] [place] [address]CGZ (RBC) [Entitic vol]70.7 fLLow80.0-100.0[facility] Memorial HospitalComment on above:Performed By: #### [id number] #### [facility] [address] [place] [address]Qnbzxswsqa Ql (Bld)PRESENTInvalid Interpretation CodeOhiohealth Grady Memorial HospitalComment on above:Performed By: #### [id number] #### [facility] [address] [place] [address]Ycbnymoek (Bld) [#/Vol]1.1 E9/LHigh0.2-1.0[facility] HospitalComment on above:Performed By: #### [id number] #### [facility] [address] [place] [address]Mxpqxkaueso (Bld) [#/Vol]9.3 E9/LHigh2.0-7.5FThe University of Toledo Medical CenterComment on above:Performed By: #### [id number] #### [facility] [address] [place] [address]Uztyuuwumzj/100 WBC (Bld)74.6 %Yazjmy36.0-75.0[facility] Memorial HospitalComment on above:Performed By: #### [id number] #### [facility] [address] [place] [address]Bjhljcsb mean volume (Bld) [Entitic vol]8.6 fLNormal6.4-10.8 [facility] HospitalComment on above:Performed By: #### [id number] #### [facility] [address] [place] [address]Kcsifkbgd (Bld) [#/Vol]481.0 E9/TSqufil463.0-500.0[facility] Memorial HospitalComment on above:Performed By: #### [id number] #### [facility] [address], [place] [address]Nwysjtray Large LM Ql (Bld)PRESENTInvalid Interpretation Code [facility] HospitalComment on above:Performed By: #### [id number] #### [facility] [address], [place] [address]BCG (Bld) [#/Vol]3.6 E12/LLow4.3-5.9[facility] Comment on above:Performed By: #### [id number] #### [facility] [address], [place] [address]JYQ size Nom (Bld)NORMALInvalid Interpretation CodeOhiohealth Grady Memorial HospitalComment on above:Performed By: #### [id number] #### [facility] [address], [place] [address]NJX corrected for nucl RBC Auto (Bld) [#/Vol]12.5 E9/LHigh 4.0-11.0[facility] Memorial HospitalComment on above:Performed By: #### [id number] #### [facility] [address], [place] [address]HCPMZBGNPXbrnoqi By: Jericho Sarmiento on 75-74-1034Hrzlrot [Mass/Vol]227 mg/wKAqwf90 - 99 mg/dLCURAHE[facility] [place] [facility] [place] POC SubsectionComment on above:Result Comment: Notified RN/MDPOC Device [id number] 1Invalid Interpretation Code [facility] POC SubsectionPOC User [id number] 1Invalid Interpretation CodeFT[facility] POC SubsectionPOC UsernameOJUKWU, ABRAHANWJONOMELIEInvalid Interpretation CodeFT POC SubsectionGlucose [Mass/Vol]177 mg/uDIakr61 - 99 mg/dLFTMC POC SubsectionComment on above:Result Comment: Notified RN/MDPOC Device [id number] 1Invalid Interpretation CodeFT[facility] POC SubsectionPOC User [id number] 1Invalid Interpretation CodeFT[facility] POC SubsectionPOC UsernameOJUKDanyellU, CHUKWUEMELIEInvalid Interpretation CodeFTMC POC SubsectionGlucose [Mass/Vol]158 mg/eXUvhi14 - 99 mg/dLCURAHE[facility] [place] [facility] [place] POC SubsectionPOC Device [id number] 1Invalid Interpretation Code [facility] [place] POC SubsectionPOC User [id number] 1Invalid Interpretation CodeCURAHEALTH H[facility]ITAL [place] [facility] [place] POC SubsectionPOC UsernamDamion FADIInvalid Interpretation CodeCURAHEALTH HOS[facility]ITAL [place] [facility] [place] POC Subsection CHEMISTRYOrdered By: SYSTEM SYSTEM on 94-04-2511Fhhmi gap [Moles/Vol]8 mmol/L Normal6 - 16 mEq/LRemisol ChemCalcium [Mass/Vol]8.6 mg/dLLow8.9 - 11.1 mg/dL Remisol ChemChloride [Moles/Vol]100 mmol/YNuc753 - 111 mmol/LRemisol ChemCO2 [Moles/Vol]30 mmol/VLgnmzx50 - 31 mmol/LRemisol ChemCreatinine [Mass/Vol]1.8 mg/dLHigh0.5 - 1.3 mg/dLRemisol SdxtdGIP80 mL/min/1.73 m2Low>=59mL/min/1.73 m2 Remisol ChemGlucose [Mass/Vol]169 mg/oNRdnkmh82 - 199 mg/dLRemisol ChemPotassium [Moles/Vol]3.7 mmol/LNormal3.5 - 5.3 mmol/LRemisol ChemSodium [Moles/Vol]134 mmol/NOhs458 - 145 mmol/LRemisol ChemUrea nitrogen [Mass/Vol]26 mg/dLHigh5 - 21 mg/dLRemisol ChemUrea nitrogen/Creatinine [Mass ratio]14 mg/wkHbjdhm49 - 20 Remisol ChemCapillary Glucose POCon 74-80-5162Kjkpkvx [Mass/Vol]227 mg/dLHigh 55-99[facility] HospitalComment on above:Result Comment: Notified RN/ Performed By: #### [id number] #### [facility] [address], [place] [address]Cxkfkqa [Mass/Vol]177 mg/yJMzve46-36QqibcjOhiohealth Grady Memorial Hospital Comment on above:Result Comment: Notified RN/JULIOerformed By: #### [id number] #### [facility] [address], [place] [address]Hewbaea [Mass/Vol]158 mg/gFNidn77-08NxdgehOhiohealth Grady Memorial Hospital Comment on above:Performed By: #### [id number] #### [facility] [address] [place], [place] [address]Tfpdbedsm Note-Nursingon 21-38-5967Qylurjgsx Note-Nursing Discharge Note-Nursing MYRA PICKARD SR :1965 Visit Date:02/12/2024 Inpatient [...] mg Tab) glimepiride (Amaryl 2 mg Tab) hydrochlorothiazide-valsartan (hydrochlorothiazide-valsartan 12.5 mg-160 mg Tab) insulin glargine (insulin [...] TERESA LYNCH DO, FAM When: Where: [address] [place] [address]- [facility] with [facility]ERRERA, [facility]: Within 2 weeks Comments: Call for followup appointment Where: [address] [place] [address]- Medications What How Much When Instructions Next [...] Tablets By Mouth Once a day (at bedtime)Tonight at bedtime Changed aspirin (aspirin 81 mg Oral EC Tab) 1 Tablets By Mouth Every day 02/22/2024 Changed dulaglutide (Trulicity Pen 0.75 mg/ 0.5 mL subcutaneous solution) 0.75 Milligram Subcutaneous Every week Resume weekly Changed hydrochlorothiazide-valsartan (hydrochlorothiazide-valsartan 12.5 mg-160 mg Tab) 1 Tablets By Mouth Every day Resume 02/22/2024 Changed isosorbide mononitrate (isosorbide mononitrate 30 mg ER Tab) 1 Tablets By Mouth Once a day (in the morning) 02/22/2024 Changed metformin (metformin 1000 mg Tab) 1 Tablets By Mouth 2 times a day Resume tonight at 9:00 PM Changed metoprolol (metoprolol tartrate 100 mg Tab) 0.5 Tablets (more content not included)...[facility] HospitalHEMATOLOGYOrdered By: SYSTEM SYSTEM on 62-02-4826Awuzzivvn/100 WBC (Bld)0.7 %Normal0.0 - 2.0 %Remisol Heme Basophils/Leukocytes Auto (Bld) [Pure # fraction]0.1 E9/LNormal0.0 - 0.2 E9/L Remisol HemeEosinophils (Bld) [#/Vol]0.4 E9/LNormal0.0 - 0.5 E9/LRemisol Heme Eosinophils/100 WBC (Bld)3.6 %Normal0.0 - 8.0 %Remisol HemeErythrocyte distribution width (RBC) [Ratio]21.4 %High10.9 - 14.2 %Remisol HemeHematocrit (Bld) [Volume fraction]25.6 %Low37.7 - 49.0 %Remisol HemeHemoglobin (Bld) [Mass/Vol]8.1 g/dLLow13.5 - 17.5 gm/dLRemisol HemeHypochromia Auto Ql (Bld) PRESENT *NA* (02/21/24 6:02 AM)Invalid Interpretation CodeRemisol HemeLymphocytes (Bld) [#/Vol]1.5 E9/LNormal1.0 - 4.0 E9/LRemisol HemeLymphocytes/100 WBC (Bld)12.4 % Low14.0 - 50.0 %Remisol HemeMCH (RBC) [Entitic mass]22.3 pgLow27.0 - 34.0 pg Remisol HemeMCHC (RBC) [Mass/Vol]31.5 g/aGDrawjr18.4 - 36.0 gm/dLRemisol HemeMCV (RBC) [Entitic vol]70.7 fLLow80.0 - 100.0 fLRemisol HemeMicrocytes Ql (Bld) PRESENT *NA* (02/21/24 6:02 AM)Invalid Interpretation CodeRemisol HemeMonocytes (Bld) [#/Vol] 1.1 E9/LHigh0.2 - 1.0 E9/LRemisol HemeMonocytes/100 WBC (Bld)8.7 %Normal4.0 - 14.0 %Remisol HemeNeutrophils (Bld) [#/Vol]9.3 E9/LHigh2.0 - 7.5 E9/LRemisol HemeNeutrophils/100 WBC (Bld)74.6 %Hrthrb14.0 - 75.0 %Remisol HemePlatelet mean volume (Bld) [Entitic vol]8.6 fLNormal6.4 - 10.8 fLRemisol HemePlatelets (Bld) [#/Vol]481.0 E9/PNxmfmk833.0 - 500.0 E9/LRemisol HemePlatelets Large LM Ql (Bld) PRESENT *NA* (02/21/24 6:02 AM)Invalid Interpretation CodeRemisol HemeRBC (Bld) [#/Vol]3.6 E12/LLow4.3 - 5.9 E12/LRemisol HemeRBC size Nom (Bld)NORMAL *NA* (02/21/24 6:02 AM)Invalid Interpretation CodeRemisol HemeWBC corrected for nucl RBC Auto (Bld) [#/Vol]12.5 E9/LHigh4.0 - 11.0 E9/LRemisol HemeInpatient Clinical Summaryon [id number] Clinical SummaryInpatient Clinical Summary [address] [address] Clinical Summary Person Information: Name: MYRA PICKARD SR Age: 58 Years : 1965 Sex: Male PCP: TERESA LYNCH DO Marital Status: Race: White Ethnicity: Non- or Language: Niuean Visit Id: Visit Reason: I70.261 Speciality: Acuity: Enc Type: Inpatient Med Service: Medical Arrival: 02/12/2024 11:13:26 Discharge: Dispo Type: Address: [address] [place] [id number] Provider Notes: Diagnosis: 1:Hx of right BKA; [...] Tablets By Mouth 2 times a day. hydrochlorothiazide-valsartan (hydrochlorothiazide-valsartan 12.5 mg-160 mg Tab) 1 Tablets By Mouthevery day. insulin glargine (insulin glargine 100 units/mL [...] Follow up: With: Address: When: TERESA LYNCH DO [address] [address] With: Address: When: Mike Montes MD [address] [place] [address] Within 2 weeks Comments: Call for followup appointment Patient Education Information: Living With an AmputationClermont County HospitalInpatient Patient Summaryon [id number] Patient SummaryInpatient Patient Summary [address] [address] Patient Discharge Instructions PERSON INFORMATION Name: MYRA PICKARD SR Date of : 1965 Current Date: 02/21/2024 15:14:07 PHYSICIANS Admitting Physician: Mike Montes MD Primary Care Physician: TERESA LYNCH DO PCP Comment: Discharge Diagnosis: 1:Hx of right BKA; 2:Leukocytosis; 3:Essential hypertension; 4:Hyperlipidemia;5:Anemia; 6: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; 7:Stage 3 chronic kidney disease; 8:Coronary artery disease; 9:Tobacco abuse Condition at Discharge: Improved MYRA PICAKRD SR has been given the following list [...] up: With: Address: When: TERESA LYNCH DO, [facility] [address] [place] [address] With: Address: When: Simon HERRERA, [facility] [address] [place] [address] Within 2 weeks Comments: Call for followup appointment In the event that this physician does not participate in your insurance network, please consult with your insurance company to find a nearby participating provider. Comment: I, MATTEO CHRISTIAN, MYRA Daniel, have received the attached patient education materials/instructions and have verbalized understanding: Patient Signature Date Clinican/Nurse Signature Date HERE ARE THE [...] 0.75 mg/0.5 mL subcutaneous solution) 0.75 Milligram Subcutaneousevery week. Last Dose: Next Dose: STOP: dulaglutide (Trulicity Pen 1.5 mg/0.5 mL subcutaneous solution) START: hydrochlorothiazide-valsartan (hydrochlorothiazide-valsartan 12.5 mg-160 mg Tab) 1 Tablets By Mouth every day. Last Dose: Next Dose: STOP: hydrochlorothiazide-valsartan (hydrochlorothiazide-valsartan 12.5 mg-160 mg Tab) By Mouth every [...] 0.5 Tablets By M (more content not included)...[facility] HospitalInterdisciplinary Note - Case Manageron 40-97-3924Qvohooffdfhllthtn Note - Mailhouse Operator Interdisciplinary Note - Mailhouse Operator Precert for [place] has been obtained. Patient informed and his was also contacted. Both remain in agreement with the discharge plan. Patient's will [place] to [facility] [place] by 1700 this evening and will transport patient to [place] once he has finished his dinner. Hospitalist, RN, and CRM aware.[facility] County HospitalComment on above:Result Comment: Electronically Signed By: Evens SÁNCHEZ, Fely García.nile\Date and Time Signed: 02/21/24 18:08 EDTInterdisciplinary Note - Social Workeron 02-21-2024 Interdisciplinary Note - Social WorkerInterdisciplinary Note - Internal Corrosion Specialist Precert for [place] has been obtained. Patient informed and his was also contacted. Both remain in agreement with the discharge plan. Patient's will arrive to [facility] [place] by 1700 this evening and will transport patient to [place] once he has finished his dinner. Hospitalist, RN, and CRM aware.[facility] HospitalInterdisciplinary Note - Internal Corrosion Specialist Interdisciplinary Note - Internal Corrosion Specialist Precert for [place] has been obtained. Patient informed and his was also contacted. Both remain in agreement with the discharge plan. Patient's will arrive to [facility] [place] by 1700 this evening and will transport patient to [place] once he has finished his dinner. Hospitalist, RN, and CRM aware.[facility] County HospitaleGFRon 26-72-0475wNLT28 mL/min/1.73 m2Low >=59[facility] HospitalComment on above:Order Comment: Order added by Discern Expert.Performed By: #### [id number] #### [facility] [address], [place] [address]OZDgr 30-21-8181Xmmil gap [Moles/Vol]15 mmol/LNormal6-16[facility] HospitalComment on above:Performed By: #### [id number] #### [facility] [address], [place] [address]Pvgsmeq [Mass/Vol]9.4 mg/dLNormal8.9-11.1FThe University of Toledo Medical CenterComment on above:Performed By: #### [id number] #### [facility] [address], [place] [address]Sampvucs [Moles/Vol]97 mmol/GBae853-187OdlsurOhiohealth Grady Memorial HospitalComment on above:Performed By: #### [id number] #### [facility] [address], [place] [address]OM9 [Moles/Vol]28 mmol/TQfefkw24-03UiucvnOhiohealth Grady Memorial Hospital Comment on above:Performed By: #### [id number] #### [facility] [address], [place] [address]Otpjcgyogk [Mass/Vol]1.8 mg/dLHigh0.5-1.3FThe University of Toledo Medical CenterComment on above:Performed By: #### [id number] #### [facility] [address], [place] [address]Noyfpsd [Mass/Vol]259 mg/aASleq74-844PwolojOhiohealth Grady Memorial HospitalComment on above:Performed By: #### [id number] #### [facility] [address], [place] [address]Jplwvoagv [Moles/Vol]3.9 mmol/LNormal3.5-5.3FThe University of Toledo Medical CenterComment on above:Performed By: #### [id number] #### [facility] [address], [place] [address]Oqaysg [Moles/Vol]136 mmol/ZEnwfoa795-359LlhrznOhiohealth Grady Memorial HospitalComment on above:Performed By: #### [id number] #### [facility] [address], [place] [address]Utng nitrogen [Mass/Vol]27 mg/dLHigh5-21[facility] HospitalComment on above:Performed By: #### [id number] #### [facility] [address], [place] [address]Gjdo nitrogen/Creatinine [Mass ratio]15 No ZayycUxlawm20-41 [facility] HospitalComment on above:Performed By: #### [id number] #### [facility] [address] [place] [address]BJM w/ Auto Diffon 28-01-0719Pmfoabwya/100 WBC (Bld)0.7 %Normal 0.0-2.0[facility] HospitalComment on above:Performed By: #### [id number] #### [facility] [address] [place] [address]Fsizcpxwg/Leukocytes Auto (Bld) [Pure # fraction]0.1 E9/LNormal 0.0-0.2FThe University of Toledo Medical CenterComment on above:Performed By: #### [id number] #### [facility] [address] [place] [address]Sjetvltgxez (Bld) [#/Vol]0.2 E9/LNormal0.0-0.5FThe University of Toledo Medical CenterComment on above:Performed By: #### [id number] #### [facility] [address] [place] [address]Gwcbzqdbnjn/100 WBC (Bld)1.6 %Normal0.0-8.0[facility] HospitalComment on above:Performed By: #### [id number] #### [facility] [address] [place] [address]Yyafyndlbmj distribution width (RBC) [Ratio]21.6 %High10.9-14.2 [facility] HospitalComment on above:Performed By: #### [id number] #### [facility] [address] [place] [address]Imlgcngtuh (Bld) [Volume fraction]27.5 %Low37.7-49.0[facility] HospitalComment on above:Performed By: #### [id number] #### [facility] [address] [place] [address]Dxzccqbokl (Bld) [Mass/Vol]8.9 g/dLLow13.5-17.5FThe University of Toledo Medical CenterComment on above:Performed By: #### [id number] #### [facility] [address] [place] [address]Qfrxriskbbp Auto Ql (Bld)PRESENTInvalid Interpretation Code [facility] HospitalComment on above:Performed By: #### [id number] #### [facility] [address] [place] [address]Lcbpjsmtkkp (Bld) [#/Vol]1.3 E9/LNormal1.0-4.0[facility] HospitalComment on above:Performed By: #### [id number] #### [facility] [address] [place] [address]Pamxoienlze/100 WBC (Bld)8.3 %Low14.0-50.0[facility] HospitalComment on above:Performed By: #### [id number] #### [facility] [address] [place] [address]KMV (RBC) [Entitic mass]22.9 pgLow27.0-34.0[facility] HospitalComment on above:Performed By: #### [id number] #### [facility] [address] [place] [address]ODXS (RBC) [Mass/Vol]32.2 g/qSCjcvic24.4-36.0[facility] HospitalComment on above:Performed By: #### [id number] #### [facility] [address] [place] [address]YHM (RBC) [Entitic vol]70.9 fLLow80.0-100.0[facility] HospitalComment on above:Performed By: #### [id number] #### [facility] [address] [place] [address]Zrhpmzupvo Ql (Bld)PRESENTInvalid Interpretation CodeOhiohealth Grady Memorial HospitalComment on above:Performed By: #### [id number] #### [facility] [address] [place] [address]Piykowpmo (Bld) [#/Vol]1.2 E9/LHigh0.2-1.0[facility] HospitalComment on above:Performed By: #### [id number] #### [facility] [address] [place] [address]Quvdfplyyir (Bld) [#/Vol]12.7 E9/LHigh2.0-7.5FThe University of Toledo Medical CenterComment on above:Performed By: #### [id number] #### [facility] [address] [place] [address]Hfcymukbbek/100 WBC (Bld)81.5 %High36.0-75.0[facility] HospitalComment on above:Performed By: #### [id number] #### [facility] [address] [place] [address]Tpavswzs692.0 E9/JLboq301.0-500.0[facility] Comment on above:Performed By: #### [id number] #### [facility] [address] [place] [address]Wxpccofu mean volume (Bld) [Entitic vol]8.6 fLNormal6.4-10.8 [facility] HospitalComment on above:Performed By: #### [id number] #### [facility] [address] [place] [address]YCG (Bld) [#/Vol]3.9 E12/LLow4.3-5.9[facility] Comment on above:Performed By: #### [id number] #### [facility] [address] [place] [address]CHU size Nom (Bld)SEE MORPHOLOGYInvalid Interpretation Code [facility] HospitalComment on above:Performed By: #### [id number] #### [facility] [address] [place] [address]MHV corrected for nucl RBC Auto (Bld) [#/Vol]15.6 E9/LHigh 4.0-11.0[facility] HospitalComment on above:Performed By: #### [id number] #### [facility] [address] [place] [address] [place] [address]IIXVLKWZLLupfasn By: SYSTEM SYSTEM on 64-90-4408Qhtti gap [Moles/Vol]15 mmol/LNormal6 - 16 mEq/LRemisol ChemCalcium [Mass/Vol]9.4 mg/dL Normal8.9 - 11.1 mg/dLRemisol ChemChloride [Moles/Vol]97 mmol/POts486 - 111 mmol/LRemisol ChemCO2 [Moles/Vol]28 mmol/GCiadjo69 - 31 mmol/LRemisol Chem Creatinine [Mass/Vol]1.8 mg/dLHigh0.5 - 1.3 mg/dLRemisol YaodyCHO76 mL/min/1.73 m2Low>=59mL/min/1.73 c5Xnndnhz ChemGlucose [Mass/Vol]259 mg/sBGrjj29 - 199 mg/dL Remisol ChemPotassium [Moles/Vol]3.9 mmol/LNormal3.5 - 5.3 mmol/LRemisol Chem Sodium [Moles/Vol]136 mmol/RGixlpw473 - 145 mmol/LRemisol ChemUrea nitrogen [Mass/Vol]27 mg/dLHigh5 - 21 mg/dLRemisol ChemUrea nitrogen/Creatinine [Mass ratio]15 mg/dgXawphc65 - 20Remisol ChemCapillary Glucose POCon 06-69-2385Nzniftx [Mass/Vol]192 mg/sSWqdf50-19YohiapOhiohealth Grady Memorial HospitalComment on above:Result Comment: Notified RN/MDPerformed By: #### [id number] #### [facility] [address], [place] [address]Kxazest [Mass/Vol]180 mg/lOZswa51-10DbllctOhiohealth Grady Memorial Hospital Comment on above:Result Comment: Notified RN/MDPerformed By: #### [id number] #### [facility] [address], [place] [address]Atetwkl [Mass/Vol]104 mg/lJNvig15-62NhnpbsOhiohealth Grady Memorial Hospital Comment on above:Result Comment: Notified RN/MDPerformed By: #### [id number] #### [facility] [address], [place] [address]Qgwzqsy [Mass/Vol]165 mg/rBRwks59-97Dpde[address] Comment on above:Result Comment: Notified RN/MDPerformed By: #### [id number] #### [facility] [address], [place] [address]Ptoxdpu [Mass/Vol]224 mg/wFAmky55-55Ibdysn[address] Comment on above:Result Comment: Notified RN/MDPerformed By: #### [id number] #### [facility] [address], [place] [address]Sjeetk Queryon 80-08-9796Eqfnsx QueryCoding Query From: Eliz Diaz RN To: Ben [...] anemia, possibly post surgical loss hgb has remainedstable post transfusion continue to monitor CBC today [...] answer is desired or expected. Thank you!eliz [id number] Children's HospitalHEMATOLOGYOrdered By: SYSTEM SYSTEM on 36-29-7720Bxuarlexp/100 WBC (Bld) 0.7 %Normal0.0 - 2.0 %Remisol HemeBasophils/Leukocytes Auto (Bld) [Pure # fraction]0.1 E9/LNormal0.0 - 0.2 E9/LRemisol HemeEosinophils (Bld) [#/Vol]0.2 E9/LNormal0.0 - 0.5 E9/LRemisol HemeEosinophils/100 WBC (Bld)1.6 %Normal0.0 - 8.0 %Remisol HemeErythrocyte distribution width (RBC) [Ratio]21.6 %High10.9 - 14.2 %Remisol HemeHematocrit (Bld) [Volume fraction]27.5 %Low37.7 - 49.0 % Remisol HemeHemoglobin (Bld) [Mass/Vol]8.9 g/dLLow13.5 - 17.5 gm/dLRemisol Heme Hypochromia Auto Ql (Bld)PRESENT *NA* (02/20/24 5:53 AM)Invalid Interpretation CodeRemisol HemeLymphocytes (Bld) [#/Vol]1.3 E9/LNormal1.0 - 4.0 E9/LRemisol HemeLymphocytes/100 WBC (Bld)8.3 %Low 14.0 - 50.0 %Remisol HemeMCH (RBC) [Entitic mass]22.9 pgLow27.0 - 34.0 pgRemisol HemeMCHC (RBC) [Mass/Vol]32.2 g/zYVhgfkk23.4 - 36.0 gm/dLRemisol HemeMCV (RBC) [Entitic vol]70.9 fLLow80.0 - 100.0 fLRemisol HemeMicrocytes Ql (Bld)PRESENT *NA* (02/20/24 5:53 AM)Invalid Interpretation CodeRemisol HemeMonocytes (Bld) [#/Vol] 1.2 E9/LHigh0.2 - 1.0 E9/LRemisol HemeMonocytes/100 WBC (Bld)7.9 %Normal4.0 - 14.0 %Remisol HemeNeutrophils (Bld) [#/Vol]12.7 E9/LHigh2.0 - 7.5 E9/LRemisol HemeNeutrophils/100 WBC (Bld)81.5 %High36.0 - 75.0 %Remisol FgmvAwtniarf177.0 E9/JFefq439.0 - 500.0 E9/LRemisol HemePlatelet mean volume (Bld) [Entitic vol] 8.6 fLNormal6.4 - 10.8 fLRemisol HemeRBC (Bld) [#/Vol]3.9 E12/LLow4.3 - 5.9 E12/LRemisol HemeRBC size Nom (Bld)SEE MORPHOLOGY *NA* (02/20/24 5:53 AM)Invalid Interpretation CodeRemisol HemeWBC corrected for nucl RBC Auto (Bld) [#/Vol]15.6 E9/LHigh4.0 - 11.0 E9/LRemisol HemeInterdisciplinary Note - Case Manageron 51-92-1831Ndnrohzuytanmexln Note - Mailhouse Operator Interdisciplinary Note - Mailhouse Operator This SW rounded with patient this morning. He is aware that precert is still pending for [place] and SW will update him as soon as determination is received. SW will also update his . Call placed to patient's this afternoon and a message was left letting her know that the precert remains pending at this time.[facility] HospitalComment on above:Result Comment: Electronically Signed By: Fely Narvaez.br\Date and Time Signed: 02/20/24 15:25 EDTInterdisciplinary Note - Case ManagerInterdisciplinary Note - Mailhouse Operator This SW rounded with patient this morning. He is aware that precert is still pending for [place] and SW will update him as soon as determination is received. SW will also update his .[facility] HospitalComment on above:Result Comment: Electronically Signed By: Fely Narvaez.br\Date and Time Signed: 02/20/24 13:55 EDTeGFRon 50-75-1258rODG32 mL/min/1.73 m2Low>=59[facility] HospitalComment on above:Order Comment: Order added by Discern Expert.Performed By: #### [id number] #### [facility] [address] [place], [place] [address]BAEpr 87-35-9167Grezg gap [Moles/Vol]12 mmol/LNormal6-16[facility] HospitalComment on above:Performed By: #### [id number] #### [facility] [address], [place] [address]Ebmyerf [Mass/Vol]8.9 mg/dLNormal8.9-11.1FThe University of Toledo Medical CenterComment on above:Performed By: #### [id number] #### [facility] [address], [place] [address]Ersisfkv [Moles/Vol]100 mmol/KZah249-851KypundOhiohealth Grady Memorial HospitalComment on above:Performed By: #### [id number] #### [facility] [address], [place] [address]DM8 [Moles/Vol]28 mmol/TJscuui10-34UhkafvOhiohealth Grady Memorial Hospital Comment on above:Performed By: #### [id number] #### [facility] [address], [place] [address]Vtpzdascpe [Mass/Vol]1.7 mg/dLHigh0.5-1.3FThe University of Toledo Medical CenterComment on above:Performed By: #### [id number] #### [facility] [address], [place] [address]Gvcgrbc [Mass/Vol]235 mg/hKJoku37-623OcttknOhiohealth Grady Memorial HospitalComment on above:Performed By: #### [id number] #### [facility] [address], [place] [address]Pxkrirbeh [Moles/Vol]4.1 mmol/LNormal3.5-5.3FThe University of Toledo Medical CenterComment on above:Performed By: #### [id number] #### [facility] [address], [place] [address]Uibxzn [Moles/Vol]136 mmol/DYbkotq872-328MarmpjOhiohealth Grady Memorial HospitalComment on above:Performed By: #### [id number] #### [facility] [address], [place] [address]Cdmj nitrogen [Mass/Vol]25 mg/dLHigh5-21[facility] HospitalComment on above:Performed By: #### [id number] #### [facility] [address] [place] [address]Comc nitrogen/Creatinine [Mass ratio]15 No VkwhfZaemrf26-53 [facility] HospitalComment on above:Performed By: #### [id number] #### [facility] [address] [place] [address]PDQ w/ Auto Diffon 01-15-0489Ttxszfxqo/100 WBC (Bld)1.6 %Normal 0.0-2.0[facility] HospitalComment on above:Performed By: #### [id number] #### [facility] [address] [place] [address]Gwjwmqpkv/Leukocytes Auto (Bld) [Pure # fraction]0.2 E9/LNormal 0.0-0.2FThe University of Toledo Medical CenterComment on above:Performed By: #### [id number] #### [facility] [address] [place] [address]Ufsajbxemrd (Bld) [#/Vol]0.5 E9/LNormal0.0-0.5FThe University of Toledo Medical CenterComment on above:Performed By: #### [id number] #### [facility] [address] [place] [address]Jlveotrsvkd/100 WBC (Bld)5.1 %Normal0.0-8.0[facility] HospitalComment on above:Performed By: #### [id number] #### [facility] [address] [place] [address]Ednjgijxhjb distribution width (RBC) [Ratio]21.6 %High10.9-14.2 [facility] HospitalComment on above:Performed By: #### [id number] #### [facility] [address] [place] [address]Aqaajsqxdk (Bld) [Volume fraction]24.4 %Low37.7-49.0[facility] HospitalComment on above:Performed By: #### [id number] #### [facility] [address], [place] [address]Njasgvwxjq (Bld) [Mass/Vol]7.9 g/dLLow13.5-17.5FThe University of Toledo Medical CenterComment on above:Performed By: #### [id number] #### [facility] [address], [place] [address]Rechmjlvfwy Auto Ql (Bld)PRESENTInvalid Interpretation Code [facility] HospitalComment on above:Performed By: #### [id number] #### [facility] [address], [place] [address]Jpckseuekwu (Bld) [#/Vol]1.9 E9/LNormal1.0-4.0[facility] HospitalComment on above:Performed By: #### [id number] #### [facility] [address] [place] [address]Qjtxngfrtkn/100 WBC (Bld)18.4 %Tqitol06.0-50.0[facility] HospitalComment on above:Performed By: #### [id number] #### [facility] [address] [place] [address] 80[address]AUK (RBC) [Entitic mass]22.8 pgLow27.0-34.0[facility] HospitalComment on above:Performed By: #### [id number] #### [facility] [address] [place] [address]KDAA (RBC) [Mass/Vol]32.3 g/xVCqkizj71.4-36.0[facility] HospitalComment on above:Performed By: #### [id number] #### [facility] [address] [place] [address]EOQ (RBC) [Entitic vol]70.4 fLLow80.0-100.0[facility] HospitalComment on above:Performed By: #### [id number] #### [facility] [address] [place] [address]Ysgmeltrd (Bld) [#/Vol]1.0 E9/LNormal0.2-1.0[facility] HospitalComment on above:Performed By: #### [id number] #### [facility] [address] [place] [address]Ivdwjmldfqn (Bld) [#/Vol]6.7 E9/LNormal2.0-7.5FThe University of Toledo Medical CenterComment on above:Performed By: #### [id number] #### [facility] [address] [place] [address]Imwriofxkod/100 WBC (Bld)65.1 %Yzkjcw59.0-75.0[facility] HospitalComment on above:Performed By: #### [id number] #### [facility] [address] [place] [address] 148[address]Olsskndd399.0 E9/HWxsvbp466.0-500.0[facility] Comment on above:Performed By: #### [id number] #### [facility] [address] [place] [address] 86649Lwnyagab mean volume (Bld) [Entitic vol]8.1 fLNormal6.4-10.8 [facility] HospitalComment on above:Performed By: #### [id number] #### [facility] [address] [place] [address] 66720FAS (Bld) [#/Vol]3.5 E12/LLow4.3-5.9[facility] Comment on above:Performed By: #### [id number] #### [facility] [address] [place] [address] 36110SCZ size Nom (Bld)SEE MORPHOLOGYInvalid Interpretation Code [facility] HospitalComment on above:Performed By: #### [id number] #### [facility] [address] [place] [address] 17575VYL corrected for nucl RBC Auto (Bld) [#/Vol]10.3 E9/LNormal 4.0-11.0[facility] HospitalComment on above:Performed By: #### [id number] #### [facility] [address], [place] [address]OOQOKGMXIHutbqnn By: SYSTEM SYSTEM on 36-60-8067Mlpen gap [Moles/Vol]12 mmol/LNormal6 - 16 mEq/LRemisol ChemCalcium [Mass/Vol]8.9 mg/dL Normal8.9 - 11.1 mg/dLRemisol ChemChloride [Moles/Vol]100 mmol/TJhp276 - 111 mmol/LRemisol ChemCO2 [Moles/Vol]28 mmol/EDjdggy84 - 31 mmol/LRemisol Chem Creatinine [Mass/Vol]1.7 mg/dLHigh0.5 - 1.3 mg/dLRemisol OikibVAX81 mL/min/1.73 m2Low>=59mL/min/1.73 k3Qrhdtkg ChemGlucose [Mass/Vol]235 mg/iVZmne12 - 199 mg/dL Remisol ChemPotassium [Moles/Vol]4.1 mmol/LNormal3.5 - 5.3 mmol/LRemisol Chem Sodium [Moles/Vol]136 mmol/RVuroee773 - 145 mmol/LRemisol ChemUrea nitrogen [Mass/Vol]25 mg/dLHigh5 - 21 mg/dLRemisol ChemUrea nitrogen/Creatinine [Mass ratio]15 mg/woWsfzwm29 - 20Remisol ChemCapillary Glucose POCon 09-09-5110Faybynz [Mass/Vol]250 mg/gDVxxa94-78IcxdeyOhiohealth Grady Memorial HospitalComment on above:Result Comment: Notified RN/MDPerformed By: #### [id number] #### [facility] [address], [place] [address]Sxlwjnj [Mass/Vol]272 mg/dYCfmd95-85UovfbzOhiohealth Grady Memorial Hospital Comment on above:Result Comment: Notified RN/MDPerformed By: #### [id number] #### [facility] [address], [place] [address]Kucswtw [Mass/Vol]277 mg/uMEwwj31-65QjzqvhOhiohealth Grady Memorial Hospital Comment on above:Result Comment: Notified RN/MDPerformed By: #### [id number] #### [facility] [address], [place] [address]Idjdkim [Mass/Vol]217 mg/zKHiut56-36Filxti [facility] Comment on above:Result Comment: Notified RN/Saydaformed By: #### [id number] #### [facility] [address], [place] [address]GHHVFGITOKUopqrih By: SYSTEM SYSTEM on 01-17-7258Qeqsaxvom/100 WBC (Bld)1.6 %Normal0.0 - 2.0 %Remisol HemeBasophils/Leukocytes Auto (Bld) [Pure # fraction]0.2 E9/LNormal0.0 - 0.2 E9/LRemisol HemeEosinophils (Bld) [#/Vol]0.5 E9/LNormal0.0 - 0.5 E9/LRemisol HemeEosinophils/100 WBC (Bld)5.1 %Normal0.0 - 8.0 %Remisol HemeErythrocyte distribution width (RBC) [Ratio]21.6 %High10.9 - 14.2 %Remisol HemeHematocrit (Bld) [Volume fraction]24.4 %Low37.7 - 49.0 % Remisol HemeHemoglobin (Bld) [Mass/Vol]7.9 g/dLLow13.5 - 17.5 gm/dLRemisol Heme Hypochromia Auto Ql (Bld)PRESENT *NA* (02/19/24 6:11 AM)Invalid Interpretation CodeRemisol HemeLymphocytes (Bld) [#/Vol]1.9 E9/LNormal1.0 - 4.0 E9/LRemisol HemeLymphocytes/100 WBC (Bld)18.4 % Hiwepj50.0 - 50.0 %Remisol HemeMCH (RBC) [Entitic mass]22.8 pgLow27.0 - 34.0 pg Remisol HemeMCHC (RBC) [Mass/Vol]32.3 g/qJXbnanz13.4 - 36.0 gm/dLRemisol HemeMCV (RBC) [Entitic vol]70.4 fLLow80.0 - 100.0 fLRemisol HemeMonocytes (Bld) [#/Vol] 1.0 E9/LNormal0.2 - 1.0 E9/LRemisol HemeMonocytes/100 WBC (Bld)9.8 %Normal4.0 - 14.0 %Remisol HemeNeutrophils (Bld) [#/Vol]6.7 E9/LNormal2.0 - 7.5 E9/LRemisol HemeNeutrophils/100 WBC (Bld)65.1 %Hycgrv35.0 - 75.0 %Remisol EemrBjltehkc028.0 E9/HMztzjl098.0 - 500.0 E9/LRemisol HemePlatelet mean volume (Bld) [Entitic vol] 8.1 fLNormal6.4 - 10.8 fLRemisol HemeRBC (Bld) [#/Vol]3.5 E12/LLow4.3 - 5.9 E12/LRemisol HemeRBC size Nom (Bld)SEE MORPHOLOGY *NA* (02/19/24 6:11 AM)Invalid Interpretation CodeRemisol HemeWBC corrected for nucl RBC Auto (Bld) [#/Vol]10.3 E9/LNormal4.0 - 11.0 E9/LRemisol Heme Interdisciplinary Note - Case Manageron 12-34-5111Zajglryknlockczcm Note - Case ManagerInterdisciplinary Note - Mailhouse Operator This SW met with patient today to discuss discharge plans. Plan remains for patient to go to [facility] in [place] once precert is obtained. All updates have been sent to [facility] for theprecert, which was submitted on Monday. Patient requested that SW contact his once precert is obtained, or before the end of the day if not obtained today. This SW made a tc to patient's and let her know that precert is still pending. She voiced understanding.[facility] HospitalComment on above:Result Comment: Electronically Signed By: Fely Narvaez.nile\Date and Time Signed: 02/19/24 15:59 EDTInterdisciplinary Note - Case ManagerInterdisciplinary Note - Mailhouse Operator This SW met with patient today to discuss discharge plans. Plan remains for patient to go to [facility] in [place] once precert is obtained. All updates have been sent to [facility] for theprecert, which was submitted on Monday. Patient requested that SW contact his once precert is obtained, or before the end of the day if not obtained today.[facility] HospitalComment on above:Result Comment: Electronically Signed By: Fely Narvaezbr\Date and Time Signed: 02/19/24 10:44 EDTOperative Reporton 01-68-1190Krspitfxl ReportOperative Report SURGERY DATE: 02/12/2024 PREOPERATIVE DIAGNOSIS: Right [...] had received antibiotics. After time-out and safety pause,a fishmouth incision configuration was created about 8 to 10 cm from the tibial tubercle. Skin and subcutaneous tissue and fascia were transected and dissected using electrocautery Bovie. We had a tourniquet up. The muscles were cut using Bovie and ligature. All the named vessels and potential bleeders were ligated using 2-0 Prolene sutures. Hemostasis was achieved. Then the bone was cu t in the upper tibia and fibula using a bone saw. Hemostasis was achieved and the tourniquet was taken down and made sure there was no bleeding. Then the fascia was closed using interrupted 2-0 Vicryl and 0 Vicryl sutures, and the skin was stapled. The patient tolerated the procedure very well. No c omplications. All counts were correct. Sully Valdez Dictated: 02/12/2024 [id number] Transcribed: 02/13/2024NoCrystal Clinic Orthopedic CenterComment on above:Result Comment: Electronically Signed By: Simon MD, Mohamed F.\.br\Date and Time Signed: 02/19/24 09:51 EDTOperative ReportOperative Report Patient: MYRA PICKARD SR Age: 58 years Sex: Male : 1965 Associated Diagnoses: None Author: MD Solomon Ahmad F Postoperative Information Date/ Time: 02/12/2024 15:00:00 Preoperative Diagnosis: Acute postoperative pain., Per surgeon request for post- op pain management. Postoperative Diagnosis: Acute postoperative pain, Per surgeon request for post- op pain management. Procedure: Femoral-Popliteal nerve block. Anesthesia [...] with ultrasonographic guidance. A 2 x 22 gaugeStimuplex needle was inserted without pain or paresthesias. [...] The patient tolerated the procedure well without complications..[facility] HospitalComment on above:Result Comment: Electronically Signed By: MD Solomon Ahmad F\.br\Date and Time Signed: 02/19/24 08:36 EDTeGFRon 82-23-0494nLPY51 mL/min/1.73 m2Low>=59[facility] HospitalComment on above:Order Comment: Order added by Discern Expert.Performed By: #### [id number] #### [facility] [address], [place] [address]Ersnrnxgq Glucose POCon 40-89-1425Airdtrb [Mass/Vol]348 mg/dL Rwgk62-63MseklpOhiohealth Grady Memorial HospitalComment on above:Result Comment: Notified RN/MDPerformed By: #### [id number] #### [facility] [address], [place] [address]Devsfqg [Mass/Vol]323 mg/pNWtpl79-18KarathOhiohealth Grady Memorial Hospital Comment on above:Result Comment: Notified RN/MDPerformed By: #### [id number] #### [facility] [address], [place] [address]Vgipwwb [Mass/Vol]323 mg/rAPwns60-36KylkvzOhiohealth Grady Memorial Hospital Comment on above:Result Comment: Notified RN/MDPerformed By: #### [id number] #### [facility] [address], [place] [address]Gsyoogd [Mass/Vol]210 mg/xIRycv56-05EqafeoOhiohealth Grady Memorial Hospital Comment on above:Result Comment: Notified RN/MDPerformed By: #### [id number] #### [facility] [address], [place] [address]HMSke 27-37-8560Wktsc gap [Moles/Vol]13 mmol/LNormal6-16[facility] HospitalComment on above:Performed By: #### [id number] #### [facility] [address], [place] [address]Ffjgvwz [Mass/Vol]9.3 mg/dLNormal8.9-11.1FThe University of Toledo Medical CenterComment on above:Performed By: #### [id number] #### [facility] [address], [place] [address]Gwflwjkn [Moles/Vol]98 mmol/NUbg272-379YwjxpkOhiohealth Grady Memorial HospitalComment on above:Performed By: #### [id number] #### [facility] [address], [place] [address]NY5 [Moles/Vol]28 mmol/TMdjdtq80-00GauxdxOhiohealth [facility]ady Memorial Hospital Comment on above:Performed By: #### [id number] #### [facility] [address], [place] [address]Barpfmnpth [Mass/Vol]1.8 mg/dLHigh0.5-1.3FThe University of Toledo Medical CenterComment on above:Performed By: #### [id number] #### [facility] [address], [place] [address]Erdxedk [Mass/Vol]374 mg/mENuxy45-887McscvxOhiohealth Grady Memorial HospitalComment on above:Performed By: #### [id number] #### [facility] [address], [place] [address]Skzfnkgwu [Moles/Vol]4.6 mmol/LNormal3.5-5.3FThe University of Toledo Medical CenterComment on above:Performed By: #### [id number] #### [facility] [address], [place] [address]Lllqra [Moles/Vol]134 mmol/LSip847-539CtxudiOhiohealth Grady Memorial HospitalComment on above:Performed By: #### [id number] #### [facility] [address], [place] [address]Imxw nitrogen [Mass/Vol]25 mg/dLHigh5-21[facility] HospitalComment on above:Performed By: #### [id number] #### [facility] [address], [place] [address]Pnsh nitrogen/Creatinine [Mass ratio]14 No XbtvmYqbwbm55-76 [facility] HospitalComment on above:Performed By: #### [id number] #### [facility] [address], [place] [address]NXY w/ Auto Diffon 03-18-7635Cjmhyxeks/100 WBC (Bld)1.0 %Normal 0.0-2.0[facility] HospitalComment on above:Performed By: #### [id number] #### [facility] [address] [place] [address]Ysvvwmsck/Leukocytes Auto (Bld) [Pure # fraction]0.1 E9/LNormal 0.0-0.2FThe University of Toledo Medical CenterComment on above:Performed By: #### [id number] #### [facility] [address] [place] [address]Qrbunrzqsgf (Bld) [#/Vol]0.5 E9/LNormal0.0-0.5FThe University of Toledo Medical CenterComment on above:Performed By: #### [id number] #### [facility] [address] [place] [address] 56486Zwxtybrblri/100 WBC (Bld)5.0 %Normal0.0-8.0[facility] HospitalComment on above:Performed By: #### [id number] #### [facility] [address] [place] [address]Mqfvkuoshrk distribution width (RBC) [Ratio]21.6 %High10.9-14.2 [facility] HospitalComment on above:Performed By: #### [id number] #### [facility] [address] [place] [address]Tntqvlwuhs (Bld) [Volume fraction]24.8 %Low37.7-49.0[facility] HospitalComment on above:Performed By: #### [id number] #### [facility] [address] [place] [address] 98[address]Ecggauecwu (Bld) [Mass/Vol]8.5 g/dLLow13.5-17.5FThe University of Toledo Medical CenterComment on above:Performed By: #### [id number] #### [facility] [address] [place] [address]Ozggnqpnpyo (Bld) [#/Vol]1.6 E9/LNormal1.0-4.0[facility] HospitalComment on above:Performed By: #### [id number] #### [facility] [address], [place] [address]Hvjfahathxj/100 WBC (Bld)15.2 %Svzrbf49.0-50.0[facility] HospitalComment on above:Performed By: #### [id number] #### [facility] [address] [place] [address] 67858HLN (RBC) [Entitic mass]24.3 pgLow27.0-34.0[facility] HospitalComment on above:Performed By: #### [id number] #### [facility] [address] [place] [address] 627[address]BXPR (RBC) [Mass/Vol]34.2 g/qEDckoje02.4-36.0[facility] HospitalComment on above:Performed By: #### [id number] #### [facility] [address] [place] [address] 78335VRH (RBC) [Entitic vol]70.9 fLLow80.0-100.0[facility] HospitalComment on above:Performed By: #### [id number] #### [facility] [address] [place] [address]Deekxidzcf Ql (Bld)PRESENTInvalid Interpretation CodeOhiohealth Grady Memorial HospitalComment on above:Performed By: #### [id number] #### [facility] [address] [place] [address] 00[address]Qaligtfef (Bld) [#/Vol]1.1 E9/LHigh0.2-1.0[facility] HospitalComment on above:Performed By: #### [id number] #### [facility] [address], [place] [address]Apdkredoctp (Bld) [#/Vol]7.1 E9/LNormal2.0-7.5FThe University of Toledo Medical CenterComment on above:Performed By: #### [id number] #### [facility] [address], [place] [address]Zwjvpvzamcw/100 WBC (Bld)68.3 %Qsixbs80.0-75.0[facility] HospitalComment on above:Performed By: #### [id number] #### [facility] [address], [place] [address]Rgozpwny825.0 E9/AVnhzcj803.0-500.0[facility] Comment on above:Performed By: #### [id number] #### [facility] [address] [place] [address]Izzxhgsy mean volume (Bld) [Entitic vol]8.2 fLNormal6.4-10.8 [facility] HospitalComment on above:Performed By: #### [id number] #### [facility] [address] [place] [address]LQD (Bld) [#/Vol]3.5 E12/LLow4.3-5.9[facility] Comment on above:Performed By: #### [id number] #### [facility] [address] [place] [address]NNZ size Nom (Bld)SEE MORPHOLOGYInvalid Interpretation Code [facility] HospitalComment on above:Performed By: #### [id number] #### [facility] [address] [place] [address]NIA corrected for nucl RBC Auto (Bld) [#/Vol]10.4 E9/LNormal 4.0-11.0[facility] HospitalComment on above:Performed By: #### [id number] #### [facility] [address] [place] [address]Odpvmynhp Glucose POCon 21-43-3910Tjslqzd [Mass/Vol]366 mg/dL Ojfc76-52DckzqfOhiohealth Grady Memorial HospitalComment on above:Result Comment: Notified RN/MDPerformed By: #### [id number] #### [facility] [address], [place] [address]Ecgkach [Mass/Vol]314 mg/dVNexb08-75OnmnpgOhiohealth Grady Memorial Hospital Comment on above:Result Comment: Notified RN/MDPerformed By: #### [id number] #### [facility] [address], [place] [address]Lenjudn [Mass/Vol]389 mg/dRTxec35-03UuzmcpOhiohealth [facility] Hospital Comment on above:Result Comment: Notified RN/MDPerformed By: #### [id number] #### [facility] [address], [place] [address]Txokohl [Mass/Vol]298 mg/kVWjpt95-21HooqqaOhiohealth Grady Memorial Hospital Comment on above:Result Comment: Notified RN/MDPerformed By: #### [id number] #### [facility] [address], [place] [address]YGZNXCRFIEPzjsssv By: SYSTEM SYSTEM on 89-28-3253Gnnlhvkkov Ql (Bld)PRESENT *NA* (02/17/24 10:59 AM)Invalid Interpretation CodeRemisol HemeeGFRon 44-84-3342rUTQ86 mL/min/1.73 m2Low>=59[facility] HospitalComment on above:Order Comment: Order added by Discern Expert.Performed By: #### [id number] #### [facility] [address], [place] [address]FQAsy 71-36-4696Nugxc gap [Moles/Vol]12 mmol/LNormal6-16[facility] HospitalComment on above:Performed By: #### [id number] #### [facility] [address], [place] [address]Arqeizp [Mass/Vol]8.5 mg/dLLow8.9-11.1FThe University of Toledo Medical CenterComment on above:Performed By: #### [id number] #### [facility] [address], [place] [address]Kvxckwcg [Moles/Vol]100 mmol/KLlk932-618BxyraeOhiohealth Grady Memorial HospitalComment on above:Performed By: #### [id number] #### [facility] [address], [place] [address]TT7 [Moles/Vol]27 mmol/UHowuns89-15HzahncOhiohealth Grady Memorial Hospital Comment on above:Performed By: #### [id number] #### [facility] [address], [place] [address]Ladkrduvqu [Mass/Vol]1.8 mg/dLHigh0.5-1.3FThe University of Toledo Medical CenterComment on above:Performed By: #### [id number] #### [facility] [address], [place] [address]Quretjc [Mass/Vol]242 mg/eADnkc53-420YjpqldOhiohealth Grady Memorial HospitalComment on above:Performed By: #### [id number] #### [facility] [address], [place] [address]Freldjcjs [Moles/Vol]3.8 mmol/LNormal3.5-5.3FThe University of Toledo Medical CenterComment on above:Performed By: #### [id number] #### [facility] [address], [place] [address]Jqduxp [Moles/Vol]135 mmol/KFhnqny001-397NzanszOhiohealth Grady Memorial HospitalComment on above:Performed By: #### [id number] #### [facility] [address], [place] [address]Ubia nitrogen [Mass/Vol]25 mg/dLHigh5-21[facility] HospitalComment on above:Performed By: #### [id number] #### [facility] [address], [place] [address]Jaxx nitrogen/Creatinine [Mass ratio]14 No NxrswAvrxpz45-25 [facility] HospitalComment on above:Performed By: #### [id number] #### [facility] [address], [place] [address]SFY w/ Auto Diffon 28-32-8830Yehvtygva/100 WBC (Bld)0.7 %Normal 0.0-2.0[facility] HospitalComment on above:Performed By: #### [id number] #### [facility] [address], [place] [address]Xrobqbgkm/Leukocytes Auto (Bld) [Pure # fraction]0.1 E9/LNormal 0.0-0.2FThe University of [facility] Medical CenterComment on above:Performed By: #### [id number] #### [facility] [address] [place] [address]Labwzllrivc (Bld) [#/Vol]0.5 E9/LNormal0.0-0.5FThe University of Toledo Medical CenterComment on above:Performed By: #### [id number] #### [facility] [address] [place] [address]Txpizqvmswt/100 WBC (Bld)4.2 %Normal0.0-8.0[facility] HospitalComment on above:Performed By: #### [id number] #### [facility] [address] [place] [address]Ijbntrucrzs distribution width (RBC) [Ratio]21.5 %High10.9-14.2 [facility] HospitalComment on above:Performed By: #### [id number] #### [facility] [address] [place] [address]Optcezdqfc (Bld) [Volume fraction]22.9 %Low37.7-49.0[facility] HospitalComment on above:Performed By: #### [id number] #### [facility] [address] [place] [address]Pouvpdpnfl (Bld) [Mass/Vol]7.6 g/dLLow13.5-17.5FThe University of Toledo Medical CenterComment on above:Performed By: #### [id number] #### [facility] [address] [place] [address]Mbhhelrmgfy Auto Ql (Bld)PRESENTInvalid Interpretation Code [facility] HospitalComment on above:Performed By: #### [id number] #### [facility] [address] [place] [address]Cbsdozpohcf (Bld) [#/Vol]1.4 E9/LNormal1.0-4.0[facility] HospitalComment on above:Performed By: #### [id number] #### [facility] [address], [place] [address]Zlffvookssn/100 WBC (Bld)12.7 %Low14.0-50.0[facility] HospitalComment on above:Performed By: #### [id number] #### [facility] [facility] [address] [place] [address] 290[address]CFB (RBC) [Entitic mass]23.4 pgLow27.0-34.0[facility] HospitalComment on above:Performed By: #### [id number] #### [facility] [address] [place] [address]MNKZ (RBC) [Mass/Vol]33.0 g/vDCegryy26.4-36.0[facility] HospitalComment on above:Performed By: #### [id number] #### [facility] [address] [place] [address] 527[address]LTF (RBC) [Entitic vol]70.9 fLLow80.0-100.0[facility] HospitalComment on above:Performed By: #### [id number] #### [facility] [address] [place] [address] 5[address]Cdxhiaqfdq Ql (Bld)PRESENTInvalid Interpretation CodeOhiohealth Grady Memorial HospitalComment on above:Performed By: #### [id number] #### [facility] [address] [place] [address]Jppnqejbu (Bld) [#/Vol]1.3 E9/LHigh0.2-1.0[facility] HospitalComment on above:Performed By: #### [id number] #### [facility] [address] [place] [address]Ryomkofuyln (Bld) [#/Vol]7.7 E9/LHigh2.0-7.5FThe University of Toledo Medical CenterComment on above:Performed By: #### [id number] #### [facility] [address] [place] [address]Arjyhgrnojj/100 WBC (Bld)70.1 %Tgjksp62.0-75.0[facility] HospitalComment on above:Performed By: #### [id number] #### [facility] [address], [place] [address]Kfawhmfo819.0 E9/JJarbnh647.0-500.0[facility] Comment on above:Performed By: #### [id number] #### [facility] [address], [place] [address]Hbyubusg mean volume (Bld) [Entitic vol]8.4 fLNormal6.4-10.8 [facility] HospitalComment on above:Performed By: #### [id number] #### [facility] [address] [place] [address] 15686ZTR (Bld) [#/Vol]3.2 E12/LLow4.3-5.9[facility] Comment on above:Performed By: #### [id number] #### [facility] [address] [place] [address] 14381IEP size Nom (Bld)SEE MORPHOLOGYInvalid Interpretation Code [facility] HospitalComment on above:Performed By: #### [id number] #### [facility] [address] [place] [address]QZW corrected for nucl RBC Auto (Bld) [#/Vol]11.0 E9/LNormal 4.0-11.0[facility] HospitalComment on above:Performed By: #### [id number] #### [facility] [address] [place] [address] 311[address]Zrygjpdsw Glucose POCon 72-67-6279Lzzdxlb [Mass/Vol]266 mg/dL [address]Comment on above:Result Comment: Notified RN/MDPerformed By: #### [id number] #### [facility] [address] [place] [address] 12[address]Gtgynxi [Mass/Vol]319 mg/aMTcol56-31Zutfwu[address] Comment on above:Result Comment: Notified RN/MDPerformed By: #### [id number] #### [facility] [address] [place], [place] [address]Gzvtvby [Mass/Vol]403 mg/hDEwdh63-43Mgpvsi[address] Comment on above:Result Comment: Notified RN/MDPerformed By: #### [id number] #### [facility] [address] [place], [place] [address]Bcspgzc [Mass/Vol]319 mg/wUTtcy14-22Xuohls[address] Comment on above:Result Comment: Notified RN/MDPerformed By: #### [id number] #### [facility] [address] [place], [place] [address]Itkygmy [Mass/Vol]253 mg/xUFduw74-09Fpwkoy[address] Comment on above:Result Comment: Notified RN/MDPerformed By: #### [id number] #### [facility] [address] [place], [place] [address]Evdrxm Queryon 37-91-9073Govsyl QueryCoding Query From: Eliz Diaz RN To: Marisela [...] Caller Number: H Dx: acute blood loss anemiaNormalOhiohealth Grady Memorial HospitalInpatient Clinical Summaryon [id number] Clinical SummaryInpatient Clinical Summary [place] [id number] Clinical Summary Person Information: Name: MYRA PICKARD SR Age: 58 Years : 1965 Sex: Male PCP: TERESA LYNCH DO Marital Status: Race: White Ethnicity: Non- or Language: Niuean Visit Id: Visit Reason: I70.261 Speciality: Acuity: Enc Type: Inpatient Med Service: Medical Arrival: 02/12/2024 11:13:26 Discharge: Dispo Type: Address: [address] [place] [id number] Provider Notes: Diagnosis: 1:Hx of right BKA; [...] Tablets By Mouth 2 times a day. hydrochlorothiazide-valsartan (hydrochlorothiazide-valsartan 12.5 mg-160 mg Tab) 1 Tablets By Mouthevery day. isosorbide mononitrate (isosorbide mononitrate 30 mg [...] inhale twice. Care Team Members: Attending Physician: Simon HERRERA, Mike Weathers Consulting Physician: Mike Montes MD Referring Physician: Mike Montes MD Follow up: Patient Education Information:[facility] HospitalIn[facility] Patient Summaryon [id number] Patient SummaryInpatient Patient Summary [place] [id number] Patient Discharge Instructions PERSON INFORMATION Name: MYRA [...] materials/instructions and have verbalized understanding: Patient Signature Date Clinican/Nurse Signature Date HERE ARE THE [...] 0.75 mg/0.5 mL subcutaneous solution) 0.75 Milligram Subcutaneousevery week. Last Dose: Next Dose: STOP: dulaglutide (Trulicity Pen 1.5 mg/0.5 mL subcutaneous solution) START: hydrochlorothiazide-valsartan (hydrochlorothiazide-valsartan 12.5 mg-160 mg Tab) 1 Tablets By Mouth every day. Last Dose: Next Dose: STOP: hydrochlorothiazide-valsartan (hydrochlorothiazide-valsartan 12.5 mg-160 mg Tab) By Mouth every [...] every day. Last Dose: (more content not included)...[facility] HospitalInsurance Correspondence Officeon [phone] Correspondence OfficeInsurance Correspondence Office OPERATIVE NOTE Operative Report SURGERY [...] had received antibiotics. After time-out and safety pause,a fishmouth incision configuration was created about 8 to 10 cm from the tibial tubercle. Skin and subcutaneous tissue and fascia were transected and dissected using electrocautery Bovie. We had a tourniquet up. The muscles were cut using Bovie and ligature. All the named vessels and potential bleeders were ligated using 2-0 Prolene sutures. Hemostasis was achieved. Then the bone was cu t in the upper tibia and fibula using a bone saw. Hemostasis was achieved and the tourniquet was taken down and made sure there was no bleeding. Then the fascia was closed using interrupted 2-0 Vicryl and 0 Vicryl sutures, and the skin was stapled. The patient tolerated the procedure very well. No c omplications. All counts were correct. Mike Montes M.D. noe Dictated: 02/12/2024 [id number] Transcribed: 02/13/2024[facility] HospitalInterdisciplinary Note - Case Manageron 67-40-2297Xogehhrzpowfurjlv Note - Case ManagerInterdisciplinary Note - Mailhouse Operator This SW received notification from [facility] that patient's had called and wanted to cancel the Acute [facility]hab and proceed with [facility]. TC from Acute Rehab was [...] SW also explained that if going to [facility], precert would have to be obtained. SW spent a lengthy amount of time going over the differences between the 2 faciliites with patient. He informed SW that his choice was to go to [facility] [place], not Acute Rehab. SW notified Acute Rehab to withdraw their precert so SNF could obtain one. That has been done and precertis pending for SNF. SW also spoke to patient and his about Waiver services under Medicaid and encouraged patient'swife to discuss this with [facility] when she calls them about patient's insurance when she calls them in a few days. SW also recommended she consider looking into getting a ramp or at least a 2nd handrail on their steps since there are 3 steps to enter their home.NormalFisher [facility] Comment on above:Result Comment: Electronically Signed By: Evens SÁNCHEZ, Fely Vazquez\Date and Time Signed: 02/16/24 12:45 EDTeGFRon 05-43-1673xMRC64 mL/min/1.73 m2Low>=59[facility] HospitalComment on above:Order Comment: Order added by Discern Expert.Performed By: #### [id number] #### [facility] [address], [place] [address]CXGyn 52-62-7150Nrmld gap [Moles/Vol]9 mmol/LNormal6-16[facility] HospitalComment on above:Performed By: #### [id number] #### [facility] [address], [place] [address]Pabjxif [Mass/Vol]8.3 mg/dLLow8.9-11.1FThe University of Toledo Medical CenterComment on above:Performed By: #### [id number] #### [facility] [address], [place] [address]Kvlgnjxv [Moles/Vol]98 mmol/HFdz273-289QkvxutOhiohealth Grady Memorial HospitalComment on above:Performed By: #### [id number] #### [facility] [address], [place] [address]KY2 [Moles/Vol]30 mmol/OXcoghs90-50SjemxtOhiohealth Grady Memorial Hospital Comment on above:Performed By: #### [id number] #### [facility] [address], [place] [address]Ekdzayoaky [Mass/Vol]1.9 mg/dLHigh0.5-1.3FThe University of Toledo Medical CenterComment on above:Performed By: #### [id number] #### [facility] [address], [place] [address]Lzrkhci [Mass/Vol]319 mg/pUTebm85-414CyhpwcOhiohealth Grady Memorial HospitalComment on above:Performed By: #### [id number] #### [facility] [address], [place] [address]Liwpchfzo [Moles/Vol]3.9 mmol/LNormal3.5-5.3FThe University of Toledo Medical CenterComment on above:Performed By: #### [id number] #### [facility] [address], [place] [address]Mawlzz [Moles/Vol]133 mmol/DLve733-771WoqwfmOhiohealth Grady Memorial HospitalComment on above:Performed By: #### [id number] #### [facility] [address], [place] [address]Voui nitrogen [Mass/Vol]25 mg/dLHigh5-21[facility] HospitalComment on above:Performed By: #### [id number] #### [facility] [address], [place] [address]Csum nitrogen/Creatinine [Mass ratio]13 No RzvpaTtxqwg54-96 [facility] HospitalComment on above:Performed By: #### [id number] #### [facility] [address], [place] [address]GZO w/Indiceson 90-14-5680Kwxuscbczfk distribution width (RBC) [Ratio]20.9 %High10.9-14.2FThe University of Toledo Medical CenterComment on above:Performed By: #### [id number] #### [facility] [address], [place] [address]Qyqfhwewnp (Bld) [Volume fraction]22.2 %Low37.7-49.0[facility] HospitalComment on above:Performed By: #### [id number] #### [facility] [address], [place] [address]Swjvirsvxa (Bld) [Mass/Vol]7.7 g/dLLow13.5-17.5FThe University of Toledo Medical CenterComment on above:Performed By: #### [id number] #### [facility] [address], [place] [address]PGR (RBC) [Entitic mass]24.3 pgLow27.0-34.0[facility] HospitalComment on above:Performed By: #### [id number] #### [facility] [address], [place] [address]IRXC (RBC) [Mass/Vol]34.6 g/cPVtpftw61.4-36.0[facility] HospitalComment on above:Performed By: #### [id number] #### [facility] [address] [place] [address]CEY (RBC) [Entitic vol]70.2 fLLow80.0-100.0[facility] HospitalComment on above:Performed By: #### [id number] #### [facility] [address] [place] [address]Xnlngaof094.0 E9/MLpkxbb321.0-500.0[facility] Comment on above:Performed By: #### [id number] #### [facility] [address] [place] [address]Jaaoufyk mean volume (Bld) [Entitic vol]8.2 fLNormal6.4-10.8 [facility] HospitalComment on above:Performed By: #### [id number] #### [facility] [address] [place] [address]TEU (Bld) [#/Vol]3.2 E12/LLow4.3-5.9[facility] Comment on above:Performed By: #### [id number] #### [facility] [address], [place] [address]XBU size Nom (Bld)NORMALInvalid Interpretation CodeOhiohealth Grady Memorial HospitalComment on above:Performed By: #### [id number] #### [facility] [address] [place] [address]UQE corrected for nucl RBC Auto (Bld) [#/Vol]9.0 E9/LNormal 4.0-11.0[facility] HospitalComment on above:Performed By: #### [id number] #### [facility] [address] [place] [address]SDQDLDRDTTrknbce By: SYSTEM SYSTEM on 10-93-6863Gadtbdyer [Mass/Vol]1.7 mg/dLNormal1.3 - 2.4 mg/dLRemisol ChemPhosphate [Mass/Vol]3.8 mg/dLNormal1.9 - 4.6 mg/dLRemisol ChemCOAGULATIONOrdered By: Nancy Barrera on 60-52-9477dKSH Coag (PPP) [Time]28.6 mGbmkqn27.1 - 36.5 second(s)[facility] [place] Auto Coag Comment on above:Interpretive Data: Parameter 15 days - 4 weeks 1 - [...] the same coagulation reagent and instrumentation as [facility] [place]. Currently there are no coagulation studies available worldwide for children to 14 days, andno normal ranges. Heparin therapeutic range (represented by Anti-Factor Xa activity of 0.2 - 0.4 U/mL) corresponds to PTT of 56.6 - 109.0 sec.INR Coag (PPP) [Relative time]1.09 {INR}Invalid Interpretation CodeCURAHEALTH H[facility] [place] [facility] [place] Auto CoagComment on above:Interpretive Data: INR results are specifically intended to assess patients stabilized on long-term Anticoagulation therapy suggested INR s Less Intensive Anticoagulation 2.0 3.0 Conventional Range 3.0 4.5PT Coag (PPP) [Time]12.2 sNormal9.4 - 12.5 second(s) [facility] [place] Auto CoagComment on above:Interpretive Data: 15 days - 4 weeks 1 - [...] the same coagulation reagent and instrumentation as [facility] [place]. Currently there are no coagulation studies available worldwide for children to 14 days, andno normal ranges.Capillary Glucose POCon 83-22-1104Qpboizc [Mass/Vol]398 mg/dLHigh 55-99[facility] HospitalComment on above:Result Comment: Notified RN/MD Performed By: #### [id number] #### [facility] [address], [place] [address]Alheftq [Mass/Vol]337 mg/vAZwjb28-69Rqorrj[address] Comment on above:Result Comment: Notified RN/MDPerformed By: #### [id number] #### [facility] [address], [place] [address]Zswawky [Mass/Vol]228 mg/cDMcng60-88Gjmxna[address] Comment on above:Result Comment: Notified RN/MDPerformed By: #### [id number] #### [facility] [address], [place] [address]Qydwwfm [Mass/Vol]309 mg/nEGlzu15-05Yffelq[address] Comment on above:Result Comment: Notified RN/MDPerformed By: #### [id number] #### [facility] [address], [place] [address]Mbnwzqoiughmnqewu Note - Case Manageron 02-15-2024 Interdisciplinary Note - Case ManagerInterdisciplinary Note - Mailhouse Operator CRM to room 309 Patient is awake, alert and oriented. Patient is from home with his spouse. Patient verified PCP, DME and insurance. Patient is here as inpatient. Patient had Right BKA. Patient is assigned to Dr Antonio. Vascular Dr Montes did surgery. Patient is getting transfusion PRBC. Patient will need PT/OT added when appropriate. Patient would like rehab stay. Choices were [facility], [facility] and [facility]. [facility] can accept. Patient was provided CRM contact, white board updated. CRM following DC date when [facility] can take per Dr Antonio patient is not ready for DC now drop in HGB, bleeding at stump and still on IV pain meds Rehab needs him on an oral regimenNormalOhiohealth Grady Memorial HospitalComment on above:Result Comment: Electronically Signed By: Raina Aguilar\.nile\Date and Time Signed: 02/15/24 14:08 EDTMagnesiumon 28-81-8945Ljkhiricq [Mass/Vol]1.7 mg/dLNormal1.3-2.4FThe University of Toledo Medical CenterComment on above:Performed By: #### [id number] #### [facility] [address], [place] [address]DA & PTTon 43-91-7349rTDJ Coag (PPP) [Time]28.6 second(s)Normal 25.1-36.5FThe University of Toledo Medical CenterComment on above:Result Comment: Parameter 15 days - 4 weeks 1 - [...] the same coagulation reagent and instrumentation as [facility] [place]. Currently there are no coagulation studies available worldwide for children to 14 days, andno normal ranges. Heparin therapeutic range (represented by Anti-Factor Xa activity of 0.2 - 0.4 U/mL) corresponds to PTT of 56.6 - 109.0 sec.Performed By: #### [id number] #### [facility] [address], [place] [address]JSX Coag (PPP) [Relative time]1.09 {INR}Invalid Interpretation [facility] HospitalComment on above:Result Comment: INR results are specifically intended to assess patients stabilized on long-term Anticoagulation therapy suggested INR?s ?Less Intensive Anticoagulation? 2.0 ? 3.0 Conventional Range 3.0 ? 4.5Performed By: #### [id number] #### [facility] [address] [place], [place] [address]GH Coag (PPP) [Time]12.2 second(s)Normal9.4-12.5FThe University of Toledo Medical CenterComment on above:Result Comment: 15 days - 4 weeks 1 - [...] the same coagulation reagent and instrumentation as [facility] [place]. Currently there are no coagulation studies available worldwide for children to 14 days, andno normal ranges.Performed By: #### [id number] #### [facility] [address], [place] [address]Mzboqvwyommz 17-52-0686Rnkxqhhke [Mass/Vol]3.8 mg/dLNormal 1.9-4.6[facility] Medical CenterComment on above:Performed By: #### [id number] #### [facility] [address], [place] [address]oQTXus 72-45-6482kKSI24 mL/min/1.73 m2Low>=59[facility] Memorial HospitalComment on above:Order Comment: Order added by Discern Expert. Performed By: #### [id number] #### [facility] [address], [place] [address]AMVxe 24-44-1098Xzibs gap [Moles/Vol]12 mmol/LNormal6-16[facility] HospitalComment on above:Performed By: #### [id number] #### [facility] [address], [place] [address]Vcuhkrc [Mass/Vol]8.3 mg/dLLow8.9-11.1FThe University of Toledo Medical CenterComment on above:Performed By: #### [id number] #### [facility] [address], [place] [address]Othxasla [Moles/Vol]96 mmol/PLhd168-434ExkqdpOhiohealth Grady Memorial HospitalComment on above:Performed By: #### [id number] #### [facility] [address], [place] [address]UE3 [Moles/Vol]28 mmol/FDhzwul29-50BmgswxOhiohealth Grady Memorial Hospital Comment on above:Performed By: #### [id number] #### [facility] [address], [place] [address]Lffcosmove [Mass/Vol]1.8 mg/dLHigh0.5-1.3FThe University of Toledo Medical CenterComment on above:Performed By: #### [id number] #### [facility] [address], [place] [address]Hkhmlxd [Mass/Vol]298 mg/eBXbvw70-535RsuagbOhiohealth Grady Memorial HospitalComment on above:Performed By: #### [id number] #### [facility] [address], [place] [address]Zvgicixns [Moles/Vol]3.7 mmol/LNormal3.5-5.3FThe University of Toledo Medical CenterComment on above:Performed By: #### [id number] #### [facility] [address], [place] [address]Rxwglr [Moles/Vol]132 mmol/AXll426-315DcmryjOhiohealth Grady Memorial HospitalComment on above:Performed By: #### [id number] #### [facility] [address], [place] [address]Rrdq nitrogen [Mass/Vol]21 mg/dLNormal5-21[facility] HospitalComment on above:Performed By: #### [id number] #### [facility] [address] [place] [address]Hxzk nitrogen/Creatinine [Mass ratio]12 No DmyfpIhpcyu67-36 [facility] HospitalComment on above:Performed By: #### [id number] #### [facility] [address] [place] [address]TMH w/ Auto Diffon 55-94-8580Dumjuznzm/100 WBC (Bld)1.9 %Normal 0.0-2.0[facility] HospitalComment on above:Performed By: #### [id number] #### [facility] [address] [place] [address]Jyunxszay/Leukocytes Auto (Bld) [Pure # fraction]0.2 E9/LNormal 0.0-0.2FThe University of Toledo Medical CenterComment on above:Performed By: #### [id number] #### [facility] [address] [place] [address]Ycxvrevqmty (Bld) [#/Vol]0.3 E9/LNormal0.0-0.5FThe University of Toledo Medical CenterComment on above:Performed By: #### [id number] #### [facility] [address] [place] [address]Azuanjyycsf/100 WBC (Bld)3.1 %Normal0.0-8.0[facility] HospitalComment on above:Performed By: #### [id number] #### [facility] [address] [place] [address]Sagmhyxvepe distribution width (RBC) [Ratio]21.1 %High10.9-14.2 [facility] HospitalComment on above:Performed By: #### [id number] #### [facility] [address] [place] [address]Cocxejfuff (Bld) [Volume fraction]26.4 %Low37.7-49.0[facility] HospitalComment on above:Performed By: #### [id number] #### [facility] [address], [place] [address]Zhgwksvyri (Bld) [Mass/Vol]8.5 g/dLLow13.5-17.5FThe University of Toledo Medical CenterComment on above:Performed By: #### [id number] #### [facility] [address], [place] [address]Gkwrvtwaqqk Auto Ql (Bld)PRESENTInvalid Interpretation Code [facility] HospitalComment on above:Performed By: #### [id number] #### [facility] [address], [place] [address]Hqjviinxyfj (Bld) [#/Vol]1.1 E9/LNormal1.0-4.0[facility] HospitalComment on above:Performed By: #### [id number] #### [facility] [address] [place] [address]Rijikptxctd/100 WBC (Bld)11.3 %Low14.0-50.0[facility] HospitalComment on above:Performed By: #### [id number] #### [facility] [address] [place] [address]SEZ (RBC) [Entitic mass]23.3 pgLow27.0-34.0[facility] Memorial HospitalComment on above:Performed By: #### [id number] #### [facility] [address], [place] [address]SYOG (RBC) [Mass/Vol]32.4 g/tPIllwaj58.4-36.0[facility] HospitalComment on above:Performed By: #### [id number] #### [facility] [address], [place] [address]HUW (RBC) [Entitic vol]71.8 fLLow80.0-100.0[facility] HospitalComment on above:Performed By: #### [id number] #### [facility] [address], [place] [address]Mzltegsvqv Ql (Bld)PRESENTInvalid Interpretation CodeOhiohealth Grady Memorial HospitalComment on above:Performed By: #### [id number] #### [facility] [address] [place] [address]Fxwbozygo (Bld) [#/Vol]1.0 E9/LNormal0.2-1.0[facility] HospitalComment on above:Performed By: #### [id number] #### [facility] [address] [place] [address]Rpsrdlcxacp (Bld) [#/Vol]7.5 E9/LNormal2.0-7.5FThe University of Toledo Medical CenterComment on above:Performed By: #### [id number] #### [facility] [address] [place] [address]Qefxzbmjhwm/100 WBC (Bld)74.1 %Qbhdhl45.0-75.0[facility] HospitalComment on above:Performed By: #### [id number] #### [facility] [address] [place] [address]Asvqjfyn mean volume (Bld) [Entitic vol]8.3 fLNormal6.4-10.8 [facility] HospitalComment on above:Performed By: #### [id number] #### [facility] [address] [place] [address]Txnxcesyc (Bld) [#/Vol]244.0 E9/DHteybv855.0-500.0[facility] HospitalComment on above:Performed By: #### [id number] #### [facility] [address] [place] [address]JRA (Bld) [#/Vol]3.7 E12/LLow4.3-5.9[facility] Comment on above:Performed By: #### [id number] #### [facility] [address] [place] [address]DQZ size Nom (Bld)SEE MORPHOLOGYInvalid Interpretation Code [facility] HospitalComment on above:Performed By: #### [id number] #### [facility] [address], [place] [address]IWR corrected for nucl RBC Auto (Bld) [#/Vol]10.2 E9/LNormal 4.0-11.0[facility] HospitalComment on above:Performed By: #### [id number] #### [facility] [address], [place] [address]ZBMJFMYFGYrdovtu By: SYSTEM SYSTEM on 12-31-4062Hltaxopub [Mass/Vol]1.8 mg/dLNormal1.3 - 2.4 mg/dLRemisol ChemPhosphate [Mass/Vol]3.8 mg/dLNormal1.9 - 4.6 mg/dLRemisol ChemCOAGULATIONOrdered By: Marybel Parks on 18-15-1746kDZL Coag (PPP) [Time]28.8 oYcteyu17.1 - 36.5 second(s)[facility] [place] Auto Coag Comment on above:Interpretive Data: Parameter 15 days - 4 weeks 1 - [...] the same coagulation reagent and instrumentation as [facility] [place]. Currently there are no coagulation studies available worldwide for children to 14 days, andno normal ranges. Heparin therapeutic range (represented by Anti-Factor Xa activity of 0.2 - 0.4 U/mL) corresponds to PTT of 56.6 - 109.0 sec.INR Coag (PPP) [Relative time]1.04 {INR}Invalid Interpretation CodeCURAHEALTH H[facility]ITAL [place] [facility] [place] Auto CoagComment on above:Interpretive Data: INR results are specifically intended to assess patients stabilized on long-term Anticoagulation therapy suggested INR s Less Intensive Anticoagulation 2.0 3.0 Conventional Range 3.0 4.5PT Coag (PPP) [Time]11.7 sNormal9.4 - 12.5 second(s) [facility] [place] Auto CoagComment on above:Interpretive Data: 15 days - 4 weeks 1 - [...] the same coagulation reagent and instrumentation as [facility] [place]. Currently there are no coagulation studies available worldwide for children to 14 days, andno normal ranges.Capillary Glucose POCon 92-67-6669Leouzkc [Mass/Vol]269 mg/dLHigh 55-99[facility] HospitalComment on above:Result Comment: Notified RN/ Performed By: #### [id number] #### [facility] [address], [place] [address]Rdyluhv [Mass/Vol]279 mg/yIRejh33-75Hnrhhr[address] Comment on above:Result Comment: Notified RN/MDPerformed By: #### [id number] #### [facility] [address], [place] [address]Rpksfqc [Mass/Vol]285 mg/qCNcvt11-82Qzwgfk[address] Comment on above:Result Comment: Repeat TestPerformed By: #### [id number] #### [facility] [address], [place] [address]Pnpdjnl [Mass/Vol]242 mg/bHPovh17-99Imqwqo[address] Comment on above:Result Comment: Repeat TestPerformed By: #### [id number] #### [facility] [address], [place] [address]Pjuafvgsuzpokpfua Note - Case Manageron 02-14-2024 Interdisciplinary Note - Case ManagerInterdisciplinary Note - Mailhouse Operator This SW rounded with patient in room 309 this morning. Patient is alert, oriented, and involved in his plan of care. He remains agreeable to going to 1) [facility] Acute [facility] - referral pending, 2) [facility] - they have accepted, or 3) [facility] - they have accepted. Acute Rehab is awaiting therapy notes to make their final determination. SW will update patient once determination isreceived. Patient did request that SW contact his , Yamileth, with an update this afternoon. TC made to Yamileth and she was updated on the above. She voiced that patient has been refusing her recommendation for [facility], however SW let her know that he was agreeable this morning. This SW had discussed the differences between Acute Rehab and SNF to patient.[facility] HospitalComment on above:Result Comment: Electronically Signed By: Fely Narvaez.br\Date and Time Signed: 02/14/24 12:15 EDTInterdisciplinary Note - Case ManagerInterdisciplinary Note - Mailhouse Operator This SW rounded with patient in room 309 this morning. Patient is alert, oriented, and involved in his plan of care. He remains agreeable to going to 1) [facility] - referral pending, 2) [facility] - they have accepted, or 3) [facility] - they have accepted. Acute Rehab is awaiting therapy notes to make their final determination. SW will update patient once determination isreceived. Patient did request that SW contact his , Yamileth, with an update this afternoon.[facility] Comment on above:Result Comment: Electronically Signed By: Fely Narvaez.br\Date and Time Signed: 02/14/24 09:38 EDTInterdisciplinary Note - OTon 52-21-8844Awptejyusjhuyjtvy Note - OTInterdisciplinary Note - OT OT AM-PAC six clicks [...] OT to follow daily progressing as pt tolerates.NormalOhiohealth Grady Memorial HospitalMagnesiumon 46-32-8718Wqsgyybxq [Mass/Vol]1.8 mg/dLNormal1.3-2.[address] [place] [facility] [address] Medical CenterComment on above:Performed By: #### [id number] #### [facility] [address], [place] [address]JF & PTTon 80-52-1286uTJN Coag (PPP) [Time]28.8 second(s)Normal 25.1-36.5FThe University of Toledo Medical CenterComment on above:Result Comment: Parameter 15 days - 4 weeks 1 - [...] the same coagulation reagent and instrumentation as [facility] [place]. Currently there are no coagulation studies available worldwide for children to 14 days, andno normal ranges. Heparin therapeutic range (represented by Anti-Factor Xa activity of 0.2 - 0.4 U/mL) corresponds to PTT of 56.6 - 109.0 sec.Performed By: #### [id number] #### [facility] [address], [place] [address]ZQL Coag (PPP) [Relative time]1.04 {INR}Invalid Interpretation CodeOhiohealth Grady Memorial HospitalComment on above:Result Comment: INR results are specifically intended to assess patients stabilized on long-term Anticoagulation therapy suggested INR?s ?Less Intensive Anticoagulation? 2.0 ? 3.0 Conventional Range 3.0 ? 4.5Performed By: #### [id number] #### [facility] [address], [place] [address]DN Coag (PPP) [Time]11.7 second(s)Normal9.4-12.5FThe University of Toledo Medical CenterComment on above:Result Comment: 15 days - 4 weeks 1 - [...] the same coagulation reagent and instrumentation as [facility] [place]. Currently there are no coagulation studies available worldwide for children to 14 days, andno normal ranges.Performed By: #### [id number] #### [facility] [address], [place] [address]Yxpaihtmldir 89-36-1942Fhboornaf [Mass/Vol]3.8 mg/dLNormal 1.9-4.6FThe University of Toledo Medical CenterComment on above:Performed By: #### [id number] #### [facility] [address], [place] [address]xAHZyu 62-84-3600eOQP39 mL/min/1.73 m2Low>=59[facility] Memorial HospitalComment on above:Order Comment: Order added by Discern Expert. Performed By: #### [id number] #### [facility] [address], [place] [address]SKWpy 71-81-8608Netfs gap [Moles/Vol]11 mmol/LNormal6-16[facility] HospitalComment on above:Performed By: #### [id number] #### [facility] [address], [place] [address]Pzhtwvc [Mass/Vol]8.0 mg/dLLow8.9-11.1FThe University of Toledo Medical CenterComment on above:Performed By: #### [id number] #### [facility] [address], [place] [address]Cwiaucrb [Moles/Vol]99 mmol/SDug732-237JbofnrOhiohealth Grady Memorial HospitalComment on above:Performed By: #### [id number] #### [facility] [address], [place] [address]GG5 [Moles/Vol]26 mmol/ZEestvf86-45IojhivOhiohealth Grady Memorial Hospital Comment on above:Performed By: #### [id number] #### [facility] [address], [place] [address]Wwbtvehzzn [Mass/Vol]1.6 mg/dLHigh0.5-1.3FThe University of Toledo Medical CenterComment on above:Performed By: #### [id number] #### [facility] [address], [place] [address]Lcynque [Mass/Vol]234 mg/iXBzbd49-618VethoqOhiohealth Grady Memorial HospitalComment on above:Performed By: #### [id number] #### [facility] [address], [place] [address]Prmkaxdfw [Moles/Vol]4.0 mmol/LNormal3.5-5.3FThe University of Toledo Medical CenterComment on above:Performed By: #### [id number] #### [facility] [address], [place] [address]Pjlnin [Moles/Vol]132 mmol/NLjs333-113CnffesOhiohealth Grady Memorial HospitalComment on above:Performed By: #### [id number] #### [facility] [address], [place] [address]Vxvv nitrogen [Mass/Vol]19 mg/dLNormal5-21[facility] HospitalComment on above:Performed By: #### [id number] #### [facility] [address], [place] [address]Bluu nitrogen/Creatinine [Mass ratio]12 No KvbnjJcbkfq14-49 [facility] HospitalComment on above:Performed By: #### [id number] #### [facility] [address], [place] [address]TXJ w/Indiceson 48-77-2791Dnfdmdywuny distribution width (RBC) [Ratio]18.8 %High10.9-14.2FThe University of Toledo Medical CenterComment on above:Performed By: #### [id number] #### [facility] [address] [place] [address]Vpighcltvz (Bld) [Volume fraction]19.5 %Low37.7-49.0[facility] Memorial HospitalComment on above:Performed By: #### [id number] #### [facility] [address] [place] [address]Fwceezittx (Bld) [Mass/Vol]6.3 g/sBVaqezycj65.5-17.5FThe University of Toledo Medical CenterComment on above:Result Comment: Critical Result Verified by Repeat Analysis Results called to DAVID WELSH by [facility] and read back on 02/13/2024 05:48:17. Performed By: #### [id number] #### [facility] [address] [place] [address]Ntgjbuuapwh Auto Ql (Bld)PRESENTInvalid Interpretation Code [facility] HospitalComment on above:Performed By: #### [id number] #### [facility] [address] [place] [address]RYY (RBC) [Entitic mass]21.6 pgLow27.0-34.0[facility] HospitalComment on above:Performed By: #### [id number] #### [facility] [address], [place] [address]PNCW (RBC) [Mass/Vol]32.3 g/gZWgpmeu50.4-36.0[facility] HospitalComment on above:Performed By: #### [id number] #### [facility] [address] [place] [address]DQS (RBC) [Entitic vol]67.0 fLLow80.0-100.0[facility] Memorial HospitalComment on above:Performed By: #### [id number] #### [facility] [address], [place] [address]Yfrfuvqdjw Ql (Bld)PRESENTInvalid Interpretation CodeOhiohealth Grady Memorial HospitalComment on above:Performed By: #### [id number] #### [facility] [address], [place] [address]Rptfdcgb138.0 E9/ZTvazak069.0-500.0[facility] Comment on above:Performed By: #### [id number] #### [facility] [address], [place] [address]Vjnlyozy mean volume (Bld) [Entitic vol]8.2 fLNormal6.4-10.8 [facility] HospitalComment on above:Performed By: #### [id number] #### [facility] [address] [place] [address]BCX (Bld) [#/Vol]2.9 E12/LLow4.3-5.9[facility] Comment on above:Performed By: #### [id number] #### [facility] [address], [place] [address]MMZ size Nom (Bld)SEE MORPHOLOGYInvalid Interpretation Code [facility] HospitalComment on above:Performed By: #### [id number] #### [facility] [address] [place] [address]QCZ corrected for nucl RBC Auto (Bld) [#/Vol]12.9 E9/LHigh 4.0-11.0[facility] HospitalComment on above:Performed By: #### [id number] #### [facility] [address] [place] [address]VNTCDAQKZGuwbuig By: Simon Helm on 05-74-9646JzK2s (Bld) [Mass fraction]10.3 %High<=5.9%[facility] ChemAutoSSCHEMISTRYOrdered By: SYSTEM SYSTEM on 46-14-1343Zlaioikez [Mass/Vol]1.3 mg/dLNormal1.3 - 2.4 mg/dLRemisol Chem Phosphate [Mass/Vol]2.5 mg/dLNormal1.9 - 4.6 mg/dLRemisol ChemCOAGULATIONOrdered By: Pietro Garibay on 26-58-3420bGQA Coag (PPP) [Time]27.5 mGjijit22.1 - 36.5 second(s)[facility] [place] [facility] Auto CoagComment on above:Interpretive Data: Parameter 15 days - 4 weeks 1 - [...] the same coagulation reagent and instrumentation as [facility] [place]. Currently there are no coagulation studies available worldwide for children to 14 days, andno normal ranges. Heparin therapeutic range (represented by Anti-Factor Xa activity of 0.2 - 0.4 U/mL) corresponds to PTT of 56.6 - 109.0 sec.INR Coag (PPP) [Relative time]1.11 {INR}Invalid Interpretation CodeCURAHEALTH [facility] [place] Auto CoagComment on above:Interpretive Data: INR results are specifically intended to assess patients stabilized on long-term Anticoagulation therapy suggested INR s Less Intensive Anticoagulation 2.0 3.0 Conventional Range 3.0 4.5PT Coag (PPP) [Time]12.5 sNormal9.4 - 12.5 second(s) [facility] [facility] Auto CoagComment on above:Interpretive Data: 15 days - 4 weeks 1 - [...] the same coagulation reagent and instrumentation as [facility] [place]. Currently there are no coagulation studies available worldwide for children to 14 days, andno normal ranges.Capillary Glucose POCon 96-49-3464Ucxqzkh [Mass/Vol]332 mg/dLRockefeller Neuroscience Institute [facility] [address] [place], [place] [address]Comment on above:Result Comment: Notified RN/MD Performed By: #### [id number] #### [facility] [address], [place] [address]Vyxgpgu [Mass/Vol]194 mg/eXHulf07-38Vigvpn[address] Comment on above:Result Comment: Notified RN/MDPerformed By: #### [id number] #### [facility] [address], [place] [address]Mwbvfet [Mass/Vol]195 mg/bRImwj47-15Vlriol[address] Comment on above:Result Comment: Notified RN/MDPerformed By: #### [id number] #### [facility] [address], [place] [address]Jaflrrs [Mass/Vol]194 mg/bDYjwd79-36Dltbba[address] Comment on above:Result Comment: Notified RN/MDPerformed By: #### [id number] #### [facility] [address], [place] [address]Gyjkoar [Mass/Vol]324 mg/eVLzpw49-50Iycepb[address] Comment on above:Result Comment: Notified RN/MDPerformed By: #### [id number] #### [facility] [address], [place] [address]Bppkdt Queryon 91-69-2082Fmubtb QueryCoding Query From: Eliz Diaz RN To: Marisela [...] answer is desired or expected. Thank you!eliz [phone] Grady Memorial HospitalHct & Hgbon 18-30-1114Mcwfhsxfbd (Bld) [Volume fraction]24.4 %Low37.7-49.0 [facility] HospitalComment on above:Performed By: #### [id number] #### [facility] [address], [place] [address]Npoxyfpzkz (Bld) [Mass/Vol]7.9 g/dLLow13.5-17.5FThe University of Toledo Medical CenterComment on above:Performed By: #### [id number] #### [facility] [address], [place] [address]DuuO1izu 85-57-2160BsQ7t (Bld) [Mass fraction]10.3 %High<=5.9 [facility] HospitalComment on above:Performed By: #### [id number] #### [facility] [address], [place] [address]Vebbirexeotulmtfs Note - Case Manageron 02-13-2024 Interdisciplinary Note - Case ManagerInterdisciplinary Note - Mailhouse Operator CRM to room 309 Patient is awake, [...] is unsure of choices yet. His spouse wasdoing some research. CRM did try to call Spouse at [phone] and left VM. CRM did leave printed SNF list in room. Patient was provided CRM contact, white board updated. CRM following DC date TBD. CRM will get updates at 10 AM from hospitalist called CRM choices of [facility], [facility] and [facility] for rehab [facility] HospitalComment on above:Result Comment: Electronically Signed By: Raina Aguilar\.br\Date and Time Signed: 02/13/24 13:10 EDT Interdisciplinary Note - Case ManagerInterdisciplinary Note - Mailhouse Operator CRM to room 309 Patient is awake, alert and oriented. Patient is from home with his spouse. Patient verified PCP, DME and insurance. Patient is here as inpatient. Patient had Right BKA. Patient is assigned to Dr Antonio. Vascular Dr Montes did surgery. Patient is getting transfusion PRBC. Patient will need PT/OT added when appropriate. Patient would like SNF at [place]. Patient is unsure of choices yet. His spouse wasdoing some research. CRM did try to call Spouse at [phone] and left VM. CRM did leave printed SNF list in room. Patient was provided CRM contact, white board updated. CRM following DC date TBD. CRM will get updates at 10 AM from [facility] hospitalistClermont County HospitalComment on above:Result Comment: Electronically Signed By: Raina Aguilar\.br\Date and Time Signed: 02/13/24 09:21 EDTInterdisciplinary Note - OT on 74-26-1773Uzgezyfhlriwbvtrd Note - OTInterdisciplinary Note - OT 02/13/24: OT orders received, chart reviewed. Holding OT eval this date as Pt has critically low Hbglevels. Will try again with OT eval when Pt is medically appropriate.[facility] HospitalInterdisciplinary Note - PTon 96-24-2898Jixreufvjyouwolgx Note - PTInterdisciplinary Note - PT Order received and chart reviewed. Pt with critical Hgb levels at this time. Will hold and attempt tomorrowNCritical access hospitaler [facility] CenterMagnesiumon 52-43-7496Fnmnqlfio [Mass/Vol]1.3 mg/dLNormal1.3-2.4Fisher [facility] Comment on above:Performed By: #### [id number] #### [place] [facility] [address] [address]Ojpy OR Intraoperative Recordon 83-45-3385Vgzd OR Intraoperative RecordMain OR Intraoperative Record IntraOp Document Type FT Summary Primary Physician: Mike Montes MD Finalized Date/Time: 02/13/24 13:38:10 Pt. Name: MATTEO CHRISTIAN, MYRA Aceves/Sex: 1965 Male Med Rec #: [id number] Physician: Mike Montes MD Financial #: [id number] Pt. 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 Last Modified By: Sara STERN, Tyree Ruiz RN, Tyree Ruiz RN, Tyree Simmons 02/12/24 14:44:09 02/12/24 14:44:09 02/12/24 14:44:09 Entry 4 Entry 5 Entry 6 Case Attendee Robinson STERN, Jenise Jaquez CST, Radha Corona Role Performed Towboat Engineer - Primary HAND DRAWER IN/SA Scrub - Primary Time In 02/12/24 13:26:00 02/12/24 13:26:00 02/12/24 13:26:00 Time Out 02/12/24 14:44:00 02/12/24 14:44:00 02/12/24 14:44:00 Procedure KNEE AMPUTATION KNEE AMPUTATION KNEE AMPUTATION BELOW(Right) BELOW(Right) BELOW(Right) Comments in orientation Last Modified By: Sara STERN, Tyree Ruiz RN, Tyree Ruiz RN, Tyree Simmons 02/12/24 14:44:09 02/12/24 14:44:09 02/12/24 14:44:09 General Comments: Lima Puckett- nutrition aide, observing surgical case. Perioperative Protocols FT [...] 13:53:00 Outcomes Met? 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 Postop Diagnosis I70.261-Atherosclerosis Outcomes Met? 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 [...] and tissue Entry 1 Skin Integrity Intact, [place], Warm, & Skin Abnormality No Dry Outcomes Met? Yes Last Modified By: Tyree Ruiz RN 02/12/24 12:50:23 Post-Care Text: The patient is free from signs an (more content not included)...NormalFisher [facility] Medical CenterPT & PTTon 83-11-1435yRHA Coag (PPP) [Time]27.5 second(s) Caxgmh48.1-36.5Fisher [facility] Medical CenterComment on above:Result Comment: Parameter 15 days - 4 weeks 1 - [...] the same coagulation reagent and instrumentation as [facility]. Currently there are no coagulation studies available worldwide for children to 14 days, andno normal ranges. Heparin therapeutic range (represented by Anti-Factor Xa activity of 0.2 - 0.4 U/mL) corresponds to PTT of 56.6 - 109.0 sec.Performed By: #### [id number] #### [facility] [address], [place] [address]OUH Coag (PPP) [Relative time]1.11 {INR}Invalid Interpretation CodeFishSaint Luke InstituteComment on above:Result Comment: INR results are specifically intended to assess patients stabilized on long-term Anticoagulation therapy suggested INR?s ?Less Intensive Anticoagulation? 2.0 ? 3.0 Conventional Range 3.0 ? 4.5Performed By: #### [id number] #### [facility] [address], [place] [address]HH Coag (PPP) [Time]12.5 second(s)Normal9.4-12.5Fisher [facility] Medical CenterComment on above:Result Comment: 15 days - 4 weeks 1 - [...] the same coagulation reagent and instrumentation as [facility] [place]. Currently there are no coagulation studies available worldwide for children to 14 days, andno normal ranges.Performed By: #### [id number] #### [facility] [address], [place] [address]Lnzecnzdzaht 34-93-4790Dogsudyji [Mass/Vol]2.5 mg/dLNormal 1.9-4.6Fisher [facility] CenterComment on above:Performed By: #### [id number] #### [facility] [address], [place] [address]HRZkn 02-13-2024# of Bclow5Iwueqpe Interpretation [facility] HospitalComment on above:Result Comment: 02/13/2024 6:32 BBR855 Blood product ready and called to David Hoskins at 02/13/2024 06:32:44 EDT by [id number]. Performed By: #### [id number] #### [facility] [address], [place] [address]Iyeu [id number] Interpretation [facility] HospitalComment on above:Performed By: #### [id number] #### [place] [facility] [address], [place] [address]Oxhox to TransfuseYesNormalOhiohealth Grady Memorial HospitalComment on above:Performed By: #### [id number] #### [facility] [address], [place] [address]Xpuuykj TypeNone RequiredInvalid Interpretation [facility] HospitalComment on above:Performed By: #### [id number] #### [place] [facility] [address], [place] [address]nWRZyu 07-54-8278xVZM38 mL/min/1.73 m2Low>=59[facility] HospitalComment on above:Order Comment: Order added by Discern Expert. Performed By: #### [id number] #### [facility] [address], [place] [address]EDN/Rhon 68-71-1872ZAN/RhPositiveInvalid Interpretation Code [facility] HospitalComment on above:Performed By: #### [id number] #### [facility] [address], [place] [address]RVP/Rh History Checkon 33-48-1609PKY/Rh History CheckType verified by second sNormalOhiohealth Grady Memorial HospitalComment on above:Performed By: #### [id number] #### [facility] [address], [place] [address]XCT/Rh Retypeon 46-05-9726HJM/Rh Retype InterpPositiveInvalid Interpretation CodeOhiohealth Grady Memorial HospitalComment on above:Performed By: #### [id number] #### [facility] [address], [place] [address]RYALhv 13-26-9393JOSS Gel InterpNegativeNormalOhiohealth Grady Memorial HospitalComment on above:Performed By: #### [id number] #### [facility] [address], [place] [address]VFGPI BANKOrdered By: Simon Helm on 83-78-7406DSF/Rh Retype InterpPositiveInvalid Interpretation [facility] BB SubsectionBLOOD BANKOrdered By: Any Gomez on 41-06-4550KCG/Rh InterpPositiveInvalid Interpretation [facility] BB SubsectionABSC Gel InterpNegative (02/12/24 12:00 PM)NormalCUR[facility] [place] [facility] BB SubsectionBMPon 94-10-1628Hzqqr gap [Moles/Vol]12 mmol/LNormal6-16[facility] HospitalComment on above:Performed By: #### [id number] #### [facility] [address], [place] [address]Jvbzhuv [Mass/Vol]8.1 mg/dLLow8.9-11.1Fisher [facility] CenterComment on above:Performed By: #### [id number] #### [facility] [address], [place] [address]Yyzcwyqd [Moles/Vol]102 mmol/REjusei327-838PrhblcOhiohealth Grady Memorial HospitalComment on above:Performed By: #### [id number] #### [facility] [address], [place] [address]IF9 [Moles/Vol]26 mmol/WNsfezq67-43MxujldOhiohealth Grady Memorial Hospital Comment on above:Performed By: #### [id number] #### [facility] [address], [place] [address]Oznyjwogbu [Mass/Vol]1.5 mg/dLHigh0.5-1.3FThe University of Toledo Medical CenterComment on above:Performed By: #### [id number] #### [facility] [address], [place] [address]Jofcrhk [Mass/Vol]274 mg/kZGlho15-078LwivgoOhiohealth Grady Memorial HospitalComment on above:Performed By: #### [id number] #### [facility] [address], [place] [address]Cfjdrfads [Moles/Vol]4.5 mmol/LNormal3.5-5.3FThe University of Toledo Medical CenterComment on above:Performed By: #### [id number] #### [facility] [address], [place] [address]Kujlfe [Moles/Vol]135 mmol/BWgdopg528-065EkwyctOhiohealth Grady Memorial HospitalComment on above:Performed By: #### [id number] #### [facility] [address], [place] [address]Yqma nitrogen [Mass/Vol]16 mg/dLNormal5-21[facility] Memorial HospitalComment on above:Performed By: #### [id number] #### [facility] [address], [place] [address]Pcbk nitrogen/Creatinine [Mass ratio]11 No UjeqeZrievs57-25 [facility] HospitalComment on above:Performed By: #### [id number] #### [facility] [address], [place] [address]Smlnc Bank ID#on 13-89-7422WDQF#[id number] Interpretation CodeOhiohealth Grady Memorial HospitalComment on above:Performed By: #### [id number] #### [facility] [address], [place] [address]OIJ w/Indiceson 07-03-6061Gjcfujeqoex distribution width (RBC) [Ratio]18.5 %High10.9-14.2FThe University of Toledo Medical CenterComment on above:Performed By: #### [id number] #### [facility] [address], [place] [address]Rnmjlbqcss (Bld) [Volume fraction]23.5 %Low37.7-49.0[facility] Memorial HospitalComment on above:Performed By: #### [id number] #### [facility] [address] [place] [address] 24611Llvcdenrfa (Bld) [Mass/Vol]7.2 g/dLLow13.5-17.5FThe University of Toledo Medical CenterComment on above:Performed By: #### [id number] #### [facility] [address] [place] [address] 20646Dgflyehfvpq Auto Ql (Bld)PRESENTInvalid Interpretation Code [facility] HospitalComment on above:Performed By: #### [id number] #### [facility] [address] [place] [address] 66246ODQ (RBC) [Entitic mass]21.1 pgLow27.0-34.0[facility] Memorial HospitalComment on above:Performed By: #### [id number] #### [facility] [address] [place] [address] 97773XNWO (RBC) [Mass/Vol]30.7 g/dLLow31.4-36.0[facility] HospitalComment on above:Performed By: #### [id number] #### [facility] [address] [place] [address] 60623IHU (RBC) [Entitic vol]68.8 fLLow80.0-100.0[facility] HospitalComment on above:Performed By: #### [id number] #### [facility] [address] [place] [address] 30185Pyqpcnvftv Ql (Bld)PRESENTInvalid Interpretation CodeOhiohealth Grady Memorial HospitalComment on above:Performed By: #### [id number] #### [facility] [address], [place] [address]Thdqhtwq mean volume (Bld) [Entitic vol]8.0 fLNormal6.4-10.8 [facility] HospitalComment on above:Performed By: #### [id number] #### [facility] [address], [place] [address]Twossxpqy (Bld) [#/Vol]244.0 E9/FNzggcv108.0-500.0[facility] HospitalComment on above:Performed By: #### [id number] #### [facility] [address], [place] [address]Hqzwmqfzxtvsm LM Ql (Bld)PRESENTInvalid Interpretation Code [facility] HospitalComment on above:Performed By: #### [id number] #### [facility] [address] [place] [address] 78816EHV (Bld) [#/Vol]3.4 E12/LLow4.3-5.9[facility] Comment on above:Performed By: #### [id number] #### [facility] [address] [place] [address] 18539ZFW size Nom (Bld)NORMALInvalid Interpretation CodeOhiohealth Grady Memorial HospitalComment on above:Performed By: #### [id number] #### [facility] [address] [place] [address] 71294Bpuyuc cells LM Ql (Bld)PRESENTInvalid Interpretation Code [facility] HospitalComment on above:Performed By: #### [id number] #### [facility] [address], [place] [address]GGY corrected for nucl RBC Auto (Bld) [#/Vol]14.7 E9/LHigh 4.0-11.0[facility] HospitalComment on above:Performed By: #### [id number] #### [facility] [address] [place] [address] 27665ZHZGZURSSXfiozcj By: SYSTEM SYSTEM on 16-16-8576Hikcboy [Mass/Vol]580 mg/dLInvalid Interpretation Code55 - 199 mg/dLRemisol ChemComment on above:Result Comment: Critical Result Verified by Repeat Analysis Critical Result S_[id number] Called to and read back by: DAVID WELSH at: 02/12/2024 21:01:57 by:BABCapillary Glucose POCon 28-96-6549Tltnmwc [Mass/Vol] 441 mg/uYWjjq18-63VtwopzOhiohealth Grady Memorial HospitalComment on above:Result Comment: Notified RN/MDPerformed By: #### [id number] #### [facility] [address], [place] [address]Qxgccyh [Mass/Vol]mg/mFWgcvocuk27-69RgngcmOhiohealth Grady Memorial Hospital Comment on above:Result Comment: Notified RN/MDPerformed By: #### [id number] #### [facility] [address], [place] [address]Xyxnrnu [Mass/Vol]mg/fXEjghnsyi49-26ZgedlgOhiohealth Grady Memorial Hospital Comment on above:Result Comment: Notified RN/MDPerformed By: #### [id number] #### [facility] [address], [place] [address]Gujweqx [Mass/Vol]259 mg/sVGxux22-16XyflgzOhiohealth Grady Memorial Hospital Comment on above:Result Comment: Repeat TestPerformed By: #### [id number] #### [facility] [address], [place] [address]Ebiukwc [Mass/Vol]205 mg/oXVwuv73-85IacawkOhiohealth Grady Memorial Hospital Comment on above:Result Comment: Notified RN/MDPerformed By: #### [id number] #### [facility] [address], [place] [address]Jjvbuxwwb 53-11-9386Kivjthm [Mass/Vol]580 mg/uRNzxwrkia81-884 [facility] HospitalComment on above:Result Comment: Critical Result Verified by Repeat Analysis Critical Result S_[id number] Called to and read back by: DAVID WELSH at: 02/12/2024 21:01:57 by:BABPerformed By: #### [id number] #### [facility] [address] [place] [address] 27488MUKJQPFGCYVtabepr By: SYSTEM SYSTEM on 22-15-3704Vcmcydshjmekb LM Ql (Bld)PRESENT *NA* (02/12/24 4:47 PM)Invalid Interpretation CodeRemisol HemeTarget cells LM Ql (Bld) PRESENT *NA* (02/12/24 4:47 PM)Invalid Interpretation CodeRemisol HemeHct & Hgbon 02-12-2024 Hematocrit (Bld) [Volume fraction]22.7 %Low37.7-49.0[facility] Comment on above:Performed By: #### [id number] #### [facility] [address] [place] [address]Cbxverdilw (Bld) [Mass/Vol]7.3 g/dLLow13.5-17.5[facility] Medical CenterComment on above:Performed By: #### [id number] #### [facility] [address] [place] [address] 06[address]Gnch OR Intraoperative Recordon [id number] OR Intraoperative RecordMain OR Intraoperative Record IntraOp Document Type FT Summary Primary Physician: Mike Montes MD Finalized Date/Time: 02/12/24 14:48:28 Pt. Name: MATTEO CHRISTIAN, MYRA Aceves/Sex: 1965 Male Med Rec #: [id number] Physician: Mike Montes MD Financial #: [id number] Pt. 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 Last Modified By: Sara STERN, Tyree Ruiz RN, Tyree Ruiz RN, Tyree Simmons 02/12/24 14:44:09 02/12/24 14:44:09 02/12/24 14:44:09 Entry 4 Entry 5 Entry 6 Case Attendee Robinson STERN, Jenise Jaquez HAND DRAWER IN, Radha Corona Role Performed Towboat Engineer - Primary HAND DRAWER IN/SA Scrub - Primary Time In 02/12/24 13:26:00 02/12/24 13:26:00 02/12/24 13:26:00 Time Out 02/12/24 14:44:00 02/12/24 14:44:00 02/12/24 14:44:00 Procedure KNEE AMPUTATION KNEE AMPUTATION KNEE AMPUTATION BELOW(Right) BELOW(Right) BELOW(Right) Comments in orientation Last Modified By: Sara STERN, Tyree Ruiz RN, Tyree Ruiz RN, Tyree Simmons 02/12/24 14:44:09 02/12/24 14:44:09 02/12/24 14:44:09 General Comments: Lima Puckett- nutrition aide, observing surgical case. 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 Postop Diagnosis I70.261-Atherosclerosis Outcomes Met? 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 [...] and tissue Entry 1 Skin Integrity Intact, [place], Warm, & Skin Abnormality No Dry Outcomes Met? Yes Last Modified By: Tyree Ruiz RN 02/12/24 12:50:23 Post-Care Text: The patient is free from signs and symptoms of injury caused by extraneous objects Patient Positioning FT Pre-Ca (more content not included)...[facility] Recordon [id number] OR PACU I RecordMain OR PACU I Record PACU Phase I Document Type FT Summary Primary Physician: Mike Montes MD Finalized Date/Time: 02/12/24 17:14:55 Pt. Name: MYRA PICKARD SR/Sex: 1965 Male Med Rec #: [id number] Physician: Mike Montes MD Financial #: [id number] Pt. Type: Room/Bed: [place] [address] Admit/Disch: 02/12/24 11:13:26 - Institution: Case Times [...] individualized perioperative plan of care The patient's rightto privacy is maintained The patient's value system, [...] with or improved from baseline levels established preoperativelyThe patient's cardiovascular status is consistent with or improved from baseline levels established preoperatively The patient's cardiovascular status is consistent with or improved from baseline levels established preoperatively The patient demonstrates and/or reports adequate pain control throughout the perioperative period The patient received appropriate medication(s), safely administered during the perioperativeperiod Acuity Level PACU I FT Entry 1 Start Time 02/12/24 14:46:00 Stop Time 02/12/24 16:15:00 Acuity Level Acuity Level I Last Modified By: Lima Bolaños RN 02/12/24 17:14:48 Finalized By: Lima Bolaños RN Document Signatures Signed By: Lima Bolaños RN 02/12/24 17:14[facility]Main [facility] Preoperative Recordon [id number] OR Preoperative RecordMain OR Preoperative Record PreOp Document Type FT Summary Primary Physician: Mike Montes MD Finalized Date/Time: 02/12/24 13:26:50 Pt. Name: MYRA PICKARD SR/Sex: 1965 Male Med Rec #: [id number] Physician: Mike Montes MD Financial #: [id number] Pt. Type: Room/Bed: [place] [address] Admit/Disch: 02/12/24 11:13:26 - Institution: Case Times [...] Signatures Signed By: Tyree Ruiz RN 02/12/24 13:26NormalOhiohealth Grady Memorial HospitalPT & PTTon 70-17-7411tVYK Coag (PPP) [Time]28.0 second(s)Bhcfeb09.1-36.5FThe University of Toledo Medical CenterComment on above:Result Comment: Parameter 15 days - 4 weeks 1 - [...] the same coagulation reagent and instrumentation as [facility] [place]. Currently there are no coagulation studies available worldwide for children to 14 days, andno normal ranges. Heparin therapeutic range (represented by Anti-Factor Xa activity of 0.2 - 0.4 U/mL) corresponds to PTT of 56.6 - 109.0 sec.Performed By: #### [id number] #### [facility] [address], [place] [address]AJX Coag (PPP) [Relative time]1.12 {INR}Invalid Interpretation [facility] HospitalComment on above:Result Comment: INR results are specifically intended to assess patients stabilized on long-term Anticoagulation therapy suggested INR?s ?Less Intensive Anticoagulation? 2.0 ? 3.0 Conventional Range 3.0 ? 4.5Performed By: #### [id number] #### [facility] [address], [place] [address]YZ Coag (PPP) [Time]12.6 second(s)High9.4-12.5FThe University of Toledo Medical CenterComment on above:Result Comment: 15 days - 4 weeks 1 - [...] the same coagulation reagent and instrumentation as [facility] [place]. Currently there are no coagulation studies available worldwide for children to 14 days, andno normal ranges.Performed By: #### [id number] #### [facility] [address], [place] [address]lNCLbu 15-85-9291tJEF09 mL/min/1.73 m2Low>=59[facility] Centerer [facility] Medical CenterComment on above:Order Comment: Order added by Discern Expert. Performed By: #### [id number] #### [facility] [address], [place] [address]Jljlpfxlu partial thromboplastin time (aPTT) in platelet poor plasma by coagulation aon 05-13-7082oKMV Coag (PPP) [Time]25.6 s22.3-36.2 [facility] HospitalaPTT Coag (PPP) [Time]Activated partial thromboplastin time (aPTT) in platelet poor plasma by coagulation a22.3-36.2 [facility] HospitalBasophils Auto (Bld) [#/Vol]on 02-08-2024 Basophils (Bld) [#/Vol]0.1 10 3/uL0.0-0.1FWhite Hospital Basophils (Bld) [#/Vol]Automated basophil count0.0-0.1FWhite HospitalBasophils/100 WBC Auto (Bld)on 34-33-8978Cusqltvtl/100 WBC (Bld)0.7 % 0.2-2.0[facility] HospitalBasophils/100 WBC (Bld)Automated basophil %0.2-2.0[facility] HospitalEosinophils/100 WBC Auto (Bld) on 85-87-7408Oqcewigpqwe/100 WBC (Bld)3.1 %0.9-7.0[facility] HospitalEosinophils/100 WBC (Bld)Automated eosinophil %0.9-7.0[facility] HospitalErythrocyte distribution width Auto (RBC) [Ratio]on 02-08-2024 Erythrocyte distribution width (RBC) [Ratio]16.3 %High11.0-15.0[facility] HospitalErythrocyte distribution width (RBC) [Ratio]Erythrocyte distribution width [Ratio] by Automated sgloeExue46.0-15.0[facility] HospitalEstimated glomerular filtration rate (GFR) non- Americanon 49-84-3315JDL/1.73 sq M.predicted among non-blacks MDRD (S/P/Bld) [Vol rate/Area]38 mL/min/{1.73_m2}Low>=60[facility] HospitalGFR/1.73 sq M.predicted among non-blacks MDRD (S/P/Bld) [Vol rate/Area]Estimated glomerular filtration rate (GFR) non- AmericanLow>=60T[facility] HospitalHematocrit Auto (Bld) [Volume fraction]on 03-77-9408Ilbmahkxlc (Bld) [Volume fraction]29.8 %Low42.0-54.0[facility] HospitalHematocrit (Bld) [Volume fraction]Hematocrit [Volume Fraction] of Blood by Automated count Low42.0-54.0[facility] HospitalHemoglobin [Mass/volume] in Bloodon 41-80-0545Amtstmxvlr (Bld) [Mass/Vol]9.1 g/dLLow14.0-18.0[facility] HospitalHemoglobin (Bld) [Mass/Vol]Hemoglobin [Mass/volume] in BloodLow 14.0-18.0[facility] HospitalINR in Platelet poor plasma by Coagulation assayon 60-15-1077QBD Coag (PPP) [Relative time]1.02 {INR}[facility] HospitalComment on above:DESIRED INR:2.0-3.0 CONDITIONS NOT LISTED BELOW2.5-3.5 FOR PROSTHETIC HEART VALVE REPLACEMENT2.5-3.5 RECURRENT THROMBOSISINR Coag (PPP) [Relative time]INR in Platelet poor plasma by Coagulation assayTuscarawas HospitalComment on above:DESIRED INR:2.0-3.0 CONDITIONS NOT LISTED BELOW2.5-3.5 FOR PROSTHETIC HEART VALVE REPLACEMENT2.5-3.5 RECURRENT THROMBOSISLaboratory - Chemistry and Chemistry - challengeon 39-93-9437Dopaciu [Mass/Vol]9.4 mg/dL8.5-10.1FWhite HospitalChloride [Moles/Vol]99 mmol/M71-025HofophwfeTuscarawas HospitalCO2 [Moles/Vol]28.9 mmol/L21.0-32.0[facility] Creatinine [Mass/Vol]1.84 mg/dLHigh0.70-1.30[facility] GFR/1.73 sq M.predicted MDRD (S/P/Bld) [Vol rate/Area]46 mL/min/{1.73_m2}Low>=60 [facility] HospitalGlucose [Mass/Vol]184 mg/fPVztq31-726MidfobycyTuscarawas HospitalPotassium [Moles/Vol]4.0 mmol/L3.5-5.1FSelect Medical Specialty Hospital - Cincinnati Northodium [Moles/Vol]138 mmol/S311-881KfzcfxaotTuscarawas HospitalUrea nitrogen [Mass/Vol]21.0 mg/dLHigh7.0-18.0[facility] HospitalUrea nitrogen/Creatinine [Mass ratio]11.4 mg/mgTuscarawas HospitalLaboratory - Hematology and Cell countson 94-39-5971Imozhnvp granulocytes/100 WBC (Bld)0.4 %0.0-0.5FWhite Hospital Leukocytes [#/volume] corrected for nucleated erythrocytes in Blood by Automated counon 53-21-3697SAI corrected for nucl RBC Auto (Bld) [#/Vol]10.1 10 3/uL 4.0-11.0[facility] HospitalWBC corrected for nucl RBC Auto (Bld) [#/Vol]Leukocytes [#/volume] corrected for nucleated erythrocytes in Blood by Automated coun4.0-11.0[facility] HospitalLymphocytes Auto (Bld) [#/Vol]on 31-28-6900Tjdudiwpgsm (Bld) [#/Vol]1.6 10 3/uL1.2-3.8[facility] HospitalLymphocytes (Bld) [#/Vol]Lymphocytes [#/volume] in Blood by Automated count1.2-3.8[facility] HospitalLymphocytes/100 WBC Auto (Bld)on 91-51-3118Kgjzjqddvun/100 WBC (Bld)15.6 %Low20.5-60.0[facility] HospitalLymphocytes/100 WBC (Bld)Lymphocytes/100 leukocytes in Blood by Automated ostmvGdy44.5-60.0[facility] Auto (RBC) [Entitic mass]on 19-02-4960EWL (RBC) [Entitic mass]21.9 pgLow25.9-34.0 [facility] (RBC) [Entitic mass]MCH [Entitic mass] by Automated wtvggHqm75.9-34.0[facility] HospitalHC Auto (RBC) [Mass/Vol]on 20-24-4203EREY (RBC) [Mass/Vol]30.5 g/dL29.9-35.2FSt. Charles HospitalHC (RBC) [Mass/Vol]MCHC [Mass/volume] by Automated count 29.9-35.2FWhite HospitalMCV Auto (RBC) [Entitic vol]on 20-96-8577FVK (RBC) [Entitic vol]71.8 fLLow80.0-94.0[facility] HospitalV (RBC) [Entitic vol]MCV [Entitic volume] by Automated hjdwbZdc73.0-94.0 [facility] HospitalMonocytes Auto (Bld) [#/Vol]on 02-08-2024 Monocytes (Bld) [#/Vol]0.8 10 3/uL0.3-0.8[facility] Monocytes (Bld) [#/Vol]Automated blood monocyte count0.3-0.8[facility] HospitalMonocytes/100 WBC Auto (Bld)on 59-56-1253Bvwcgfecf/100 WBC (Bld) 7.5 %1.7-12.0[facility] HospitalMonocytes/100 WBC (Bld)Automated monocyte %1.7-12.0[facility] HospitalNeutrophils Auto (Bld) [#/Vol]on 87-87-0884Ipefagfyval (Bld) [#/Vol]7.4 10 3/uLHigh1.4-6.5FWhite HospitalNeutrophils (Bld) [#/Vol]Neutrophils [#/volume] in Blood by Automated countHigh1.4-6.5FWhite HospitalNeutrophils/100 WBC Auto (Bld)on 73-73-8550Eviqxrdnwex/100 WBC (Bld)72.7 %43.0-75.0[facility] HospitalNeutrophils/100 WBC (Bld)Automated neutrophil %43.0-75.0 [facility] HospitalNo Panel Informationon 64-19-1992Speavruvroy # (Auto)0.3 10 3/uL0.0-0.7FWhite HospitalImmature Granulocyte # (Auto)0.04 10 3/uLHigh0.00-0.03[facility]11.4FWhite Hospital0.3 10 3/uL0.0-0.7FWhite Hospital21.0 mg/dLHigh7.0-18.0[facility]9.4 mg/dL8.5-10.1FWhite Hospital99 mmol/C27-498YwszglpabTuscarawas Hospital28.9 mmol/L21.0-32.0[facility]0.04 10 3/uLHigh0.00-0.03 [facility]1.84 mg/dLHigh0.70-1.30[facility]0.4 %0.0-0.5FWhite Hospital46Low>=60[facility]184 mg/cKAdeu92-687BohfivgxaTuscarawas Hospital4.0 mmol/L3.5-5.1FWhite Hospital138 mmol/H287-619ChsumozjeTuscarawas HospitalPlatelet mean volume Auto (Bld) [Entitic vol]on 03-24-9923Vrbphkrq mean volume (Bld) [Entitic vol]10.7 fL9.5-13.5FWhite HospitalPlatelet mean volume (Bld) [Entitic vol]Platelet mean volume [Entitic volume] in Blood by Automated count9.5-13.5FWhite HospitalPlatelets Auto (Bld) [#/Vol]on 49-92-1116Pazyehbim (Bld) [#/Vol] 322 10 3/zE900-610PdizcnbtxTuscarawas HospitalPlatelets (Bld) [#/Vol] Platelets [#/volume] in Blood by Automated wceox533-492EbsgeygysTuscarawas HospitalProthrombin time (PT)on 48-02-0859PV Coag (PPP) [Time]10.8 s 9.0-11.6FWhite HospitalPT Coag (PPP) [Time]Prothrombin time (PT)9.0-11.6FWhite HospitalRB Auto (Bld) [#/Vol]on 02-08-2024 RBC (Bld) [#/Vol]4.15 10 6/uLLow4.70-6.10T[facility]awas HospitalRB (Bld) [#/Vol]Erythrocytes [#/volume] in Blood by Automated countLow4.70-6.10 [facility], Beachwooderum or plasma anion gap determinationon 81-56-4207Ecoax gap [Moles/Vol]14.1 mmol/LFWhite HospitalAnion gap [Moles/Vol]Serum or plasma anion gap determinationTuscarawas HospitalALL CBC WITH AUTO DIFFon 42-03-0683EBWLNPBRH ABSOLUTE AUTO0.1NOMS HealthcareBasophils/100 WBC (Bld)1.2 %0.2 - 2.0 %NOMS HealthcareEosinophils/100 WBC (Bld)2.9 %0.9 - 7.0 %NOMS HealthcareErythrocyte distribution width (RBC) [Ratio]16.4 %High11.0 - 15.0 %NOMS HealthcareHematocrit (Bld) [Volume fraction] 28.7 %Low42.0 - 54.0 %NOMS HealthcareHemoglobin (Bld) [Mass/Vol]8.7 g/dLLow14.0 - 18.0 g/dLNOMS HealthcareIMMATURE GRANULOCYTES ABS AUTO0.06HighNOMS Healthcare Immature granulocytes/100 WBC (Bld)0.7 %High0.0 - 0.5 %[facility] Interpretation and review of laboratory resultsAbnormalChristian Hospital LYMPHOCYTES ABSOLUTE AUTO1.8NOColumbia Regional HospitalLymphocytes/100 WBC (Bld)21.5 %20.5 - 60.0 %[facility]fieldH (RBC) [Entitic mass]22.3 pgLow25.9 - 34.0 pgMercy hospital springfieldHC (RBC) [Mass/Vol]30.3 g/dL29.9 - 35.2 g/dLMercy hospital springfieldV (RBC) [Entitic vol]73.6 fLLow80.0 - 94.0 fLChristian HospitalMONOCYTES ABSOLUTE AUTO0.7 Christian HospitalMonocytes/100 WBC (Bld)8.7 %1.7 - 12.0 %[facility] NEUTROPHILS ABSOLUTE AUTO5.4NOColumbia Regional HospitalNeutrophils/100 WBC (Bld)65.0 %43.0 - 75.0 %Christian HospitalPlatelet mean volume (Bld) [Entitic vol]10.4 fL9.5 - 13.5 fLChristian HospitalTB EO #0.2NOMS Regional Medical CenterTB GGA620PZAQLake Regional Health System RBC3.90 LowChristian HospitalTB WBC8.3Christian HospitalCLINISYNCNSt. Louis Behavioral Medicine InstituteActivated partial thromboplastin time (aPTT) in platelet poor plasma by coagulation aon 25-69-8627cEXY Coag (PPP) [Time]25.3 s22.3-36.2FWhite Hospital aPTT Coag (PPP) [Time]Activated partial thromboplastin time (aPTT) in platelet poor plasma by coagulation a22.3-36.2FWhite HospitalBasophils Auto (Bld) [#/Vol]on 20-63-2072Xunsklokw (Bld) [#/Vol]0.1 10 3/uL0.0-0.1 [facility] HospitalBasophils (Bld) [#/Vol]Automated basophil count 0.0-0.1FWhite HospitalBasophils/100 WBC Auto (Bld)on 96-12-5167Dcwutvbxb/100 WBC (Bld)1.2 %0.2-2.0[facility] Basophils/100 WBC (Bld)Automated basophil %0.2-2.0[facility] HospitalEosinophils/100 WBC Auto (Bld)on 34-40-5007Oxmffoqwgwd/100 WBC (Bld)2.9 % 0.9-7.0[facility] HospitalEosinophils/100 WBC (Bld)Automated eosinophil %0.9-7.0[facility] HospitalErythrocyte distribution width Auto (RBC) [Ratio]on 04-16-2774Eedngopayih distribution width (RBC) [Ratio]16.4 %High11.0-15.0[facility] HospitalErythrocyte distribution width (RBC) [Ratio]Erythrocyte distribution width [Ratio] by Automated qvtymGwsh91.0-15.0[facility] HospitalEstimated glomerular filtration rate (GFR) non- Americanon 08-33-4485ZKU/1.73 sq M.predicted among non-blacks MDRD (S/P/Bld) [Vol rate/Area]34 mL/min/{1.73_m2} Low>=60T[facility] HospitalGFR/1.73 sq M.predicted among non-blacks MDRD (S/P/Bld) [Vol rate/Area]Estimated glomerular filtration rate (GFR) non- AmericanLow>=60T[facility] HospitalHematocrit Auto (Bld) [Volume fraction]on 20-42-7737Hpgvpjyzzr (Bld) [Volume fraction]28.7 %Low 42.0-54.0[facility] HospitalHematocrit (Bld) [Volume fraction] Hematocrit [Volume Fraction] of Blood by Automated unhisGxe93.0-54.0[facility] HospitalHemoglobin [Mass/volume] in Bloodon 69-19-1288Foqnhguyof (Bld) [Mass/Vol]8.7 g/dLLow14.0-18.0[facility] HospitalHemoglobin (Bld) [Mass/Vol]Hemoglobin [Mass/volume] in VsyhhUfa44.0-18.0[facility]as HospitalINR in Platelet poor plasma by Coagulation assayon 33-63-3834OKM Coag (PPP) [Relative time]1.02 {INR}[facility] HospitalComment on above:DESIRED INR:2.0-3.0 CONDITIONS NOT LISTED BELOW2.5-3.5 FOR PROSTHETIC HEART VALVE REPLACEMENT2.5-3.5 RECURRENT THROMBOSISINR Coag (PPP) [Relative time]INR in Platelet poor plasma by Coagulation assayTuscarawas HospitalComment on above:DESIRED INR:2.0-3.0 CONDITIONS NOT LISTED BELOW2.5-3.5 FOR PROSTHETIC HEART VALVE REPLACEMENT2.5-3.5 RECURRENT THROMBOSISLaboratory - Chemistry and Chemistry - challengeon 53-01-7528Jewtwlu [Mass/Vol]9.0 mg/dL 8.5-10.1FWhite HospitalChloride [Moles/Vol]100 mmol/L98-107 [facility] HospitalCO2 [Moles/Vol]26.7 mmol/L21.0-32.0[facility] HospitalCreatinine [Mass/Vol]2.03 mg/dLHigh0.70-1.30[facility] HospitalGFR/1.73 sq M.predicted MDRD (S/P/Bld) [Vol rate/Area]41 mL/min/{1.73_m2}Low>=60[facility] HospitalGlucose [Mass/Vol]268 mg/bAQczv77-338QomadassnTuscarawas HospitalPotassium [Moles/Vol]4.3 mmol/L 3.5-5.1FSelect Medical Specialty Hospital - Cincinnati Northodium [Moles/Vol]137 mmol/C981-059 [facility] HospitalUrea nitrogen [Mass/Vol]25.0 mg/dLHigh7.0-18.0 [facility] HospitalUrea nitrogen/Creatinine [Mass ratio]12.3 mg/mg [facility] HospitalLaboratory - Hematology and Cell countson [id number] granulocytes/100 WBC (Bld)0.7 %High0.0-0.5FWhite HospitalLeukocytes [#/volume] corrected for nucleated erythrocytes in Blood by Automated counon [id number] corrected for nucl RBC Auto (Bld) [#/Vol]8.3 10 3/uL4.0-11.0T[facility]aw[facility] HospitalWBC corrected for nucl RBC Auto (Bld) [#/Vol]Leukocytes [#/volume] corrected for nucleated erythrocytes in Blood by Automated coun4.0-11.0[facility] Lymphocytes Auto (Bld) [#/Vol]on [id number] (Bld) [#/Vol]1.8 10 3/uL 1.2-3.8[facility]aw[facility] HospitalLymphocytes (Bld) [#/Vol]Lymphocytes [#/volume] in Blood by Automated count1.2-3.8[facility] Lymphocytes/100 WBC Auto (Bld)on 78-68-0713Uitmnxfhgmt/100 WBC (Bld)21.5 % 20.5-60.0[facility] HospitalLymphocytes/100 WBC (Bld) Lymphocytes/100 leukocytes in Blood by Automated count20.5-60.0[facility] Auto (RBC) [Entitic mass]on 58-84-3090EUY (RBC) [Entitic mass]22.3 pgLow25.9-34.0[facility] HospitalH (RBC) [Entitic mass]MCH [Entitic mass] by Automated twpcoVwv42.9-34.0[facility] HospitalHC Auto (RBC) [Mass/Vol]on 97-86-6764QBFA (RBC) [Mass/Vol]30.3 g/dL29.9-35.2FSt. Charles HospitalHC (RBC) [Mass/Vol]MCHC [Mass/volume] by Automated count29.9-35.2FWhite HospitalMCV Auto (RBC) [Entitic vol]on 45-79-6064SAK (RBC) [Entitic vol] 73.6 fLLow80.0-94.0[facility] HospitalV (RBC) [Entitic vol]MCV [Entitic volume] by Automated wnjbxRuc53.0-94.0[facility] Monocytes Auto (Bld) [#/Vol]on 24-03-9587Oysmmxtsp (Bld) [#/Vol]0.7 10 3/uL 0.3-0.8[facility] HospitalMonocytes (Bld) [#/Vol]Automated blood monocyte count0.3-0.8[facility] HospitalMonocytes/100 WBC Auto (Bld)on 56-35-2931Hzzduekju/100 WBC (Bld)8.7 %1.7-12.0[facility] HospitalMonocytes/100 WBC (Bld)Automated monocyte %1.7-12.0[facility] HospitalNeutrophils Auto (Bld) [#/Vol]on 27-15-9369Opiiwobrvvc (Bld) [#/Vol]5.4 10 3/uL1.4-6.5FWhite HospitalNeutrophils (Bld) [#/Vol]Neutrophils [#/volume] in Blood by Automated count1.4-6.5FWhite HospitalNeutrophils/100 WBC Auto (Bld)on 02-01-2024 Neutrophils/100 WBC (Bld)65.0 %43.0-75.0[facility] Neutrophils/100 WBC (Bld)Automated neutrophil %43.0-75.0[facility] HospitalNo Panel Informationon 15-96-3618Xyhxnbfygck # (Auto)0.2 10 3/uL 0.0-0.7FWhite HospitalImmature Granulocyte # (Auto)0.06 10 3/uLHigh0.00-0.03[facility]12.3FWhite Hospital25.0 mg/dLHigh7.0-18.0[facility]0.2 10 3/uL0.0-0.7 [facility]9.0 mg/dL8.5-10.1FWhite Hospital100 mmol/E47-312HjbxsyijfTuscarawas Hospital26.7 mmol/L21.0-32.0 [facility]2.03 mg/dLHigh0.70-1.30[facility]0.06 10 3/uLHigh0.00-0.03[facility]41Low >=60[facility]0.7 %High0.0-0.5FWhite Hospital268 mg/zCXrxi16-451IpnhgaztoTuscarawas Hospital4.3 mmol/L3.5-5.1 [facility]137 mmol/L037-650QhebavlgxTuscarawas HospitalPlatelet mean volume Auto (Bld) [Entitic vol]on 97-19-2795Krwmrgts mean volume (Bld) [Entitic vol]10.4 fL9.5-13.5FWhite Hospital Platelet mean volume (Bld) [Entitic vol]Platelet mean volume [Entitic volume] in Blood by Automated count9.5-13.5FWhite HospitalPlatelets Auto (Bld) [#/Vol]on 14-79-3482Neymnzlfh (Bld) [#/Vol]397 10 3/yH950-339GphbtubyjTuscarawas HospitalPlatelets (Bld) [#/Vol]Platelets [#/volume] in Blood by Automated uimgw221-381IdjsmkhzfTuscarawas HospitalProthrombin time (PT)on 09-96-9176LF Coag (PPP) [Time]10.8 s9.0-11.6FWhite HospitalPT Coag (PPP) [Time]Prothrombin time (PT)9.0-11.6FWhite Hospital RBC Auto (Bld) [#/Vol]on 87-57-1361VRM (Bld) [#/Vol]3.90 10 6/uLLow4.70-6.10 [facility] HospitalRBC (Bld) [#/Vol]Erythrocytes [#/volume] in Blood by Automated countLow4.70-6.10[facility], Beachwooderum or plasma anion gap determinationon 55-68-9594Jgkys gap [Moles/Vol]14.6 mmol/L [facility] HospitalAnion gap [Moles/Vol]Serum or plasma anion gap determinationTuscarawas HospitalProvider Letteron 01-29-2024 Provider LetterProvider Letter January 29, 2024 MYRA PICKARD [address] [place] [address] [address] [place] [address] : 1965 Dear Myra, We have been [...] [facility] [address], [address] [place] [address] PolmlqTcznuvClermont County HospitalOperative Reporton 57-08-0970Ceiaxtdpb ReportOperative Report PREOPERATIVE DIAGNOSIS: Right lower extremity critical [...] were set. Anesthesia was induced. Under ultrasound guidancethe common femoral artery was accessed using Seldinger maneuver. Conscious sedation was induced andthen obtained a micro-access upsized to 5-Danish sheath, placed the catheter in the abdominal aorta. Aortogram, pelvic angiogram, CO2 angiogram were done followed by selective right lower extremity angiogram, selected the bypass and obtained an angiogram, and there was high-grade stenosis distal tothe anastomosis, and then also there was high-grade stenosis just distal in the plantar arch. A wire was placed all the way down in the plantar arch, and that was treated with a 2 mm balloon and then6 mm drug-coated balloon for the distal anastomosis. [...] well. Mike Montes M.D. ca Dictated: 01/08/2024 [id number] Transcribed: 01/08/2024[facility] County HospitalComment on above:Result Comment: Electronically Signed By: Mike Montes MD\.br\Date and Time Signed: 01/11/24 18:26 EDTCoding Queryon [id number] QueryCoding Query From: Viviane Azul To: Mike Montes MD; Cc: Monique Saldivar; Sent: 01/10/2024 14:42:56 EDT ! Subject: Coding Query (Template) CODING COMMUNICATION: _XX_ Procedure information missing: Please document the Pre and Post-Op Diagnosis. Please feel free to contact the coding department with any questions. Thank you! [facility] HospitalBMPon 29-88-7337Pqiqa gap [Moles/Vol]13 mmol/LNormal6-16[facility] HospitalComment on above:Performed By: #### [id number] #### [facility] [address], [place] [address]Bikdhgt [Mass/Vol]9.1 mg/dLNormal8.9-11.1[facility] CenterComment on above:Performed By: #### [id number] #### [facility] [address], [place] [address]Pltodzzf [Moles/Vol]103 mmol/POglqmu564-747UopzbkOhiohealth Grady Memorial HospitalComment on above:Performed By: #### [id number] #### [facility] [address], [place] [address]OT2 [Moles/Vol]25 mmol/WBvbfmv46-98QmwtfgOhiohealth Grady Memorial Hospital Comment on above:Performed By: #### [id number] #### [facility] [address], [place] [address]Qwsajhbwcr [Mass/Vol]1.9 mg/dLHigh0.5-1.3FThe University of Toledo Medical CenterComment on above:Performed By: #### [id number] #### [facility] [address], [place] [address]Pdoyzit [Mass/Vol]138 mg/rBKfkzli83-074KegvpfOhiohealth Grady Memorial HospitalComment on above:Performed By: #### [id number] #### [facility] [address], [place] [address]Axzqrstsq [Moles/Vol]4.2 mmol/LNormal3.5-5.3FThe University of Toledo Medical CenterComment on above:Performed By: #### [id number] #### [facility] [address], [place] [address]Jcavdv [Moles/Vol]137 mmol/ZBquxxm096-348PdtybjOhiohealth Grady Memorial HospitalComment on above:Performed By: #### [id number] #### [facility] [address], [place] [address]Chyw nitrogen [Mass/Vol]26 mg/dLHigh5-21[facility] HospitalComment on above:Performed By: #### [id number] #### [facility] [address], [place] [address]Qpcq nitrogen/Creatinine [Mass ratio]14 No QmonuGrktuh54-61 [facility] HospitalComment on above:Performed By: #### [id number] #### [facility] [address], [place] [address]VBI w/ Auto Diffon 26-69-9445Icqedarmq/100 WBC (Bld)1.2 %Normal 0.0-2.0[facility] HospitalComment on above:Performed By: #### [id number] #### [facility] [address], [place] [address]Ktonfjiun/Leukocytes Auto (Bld) [Pure # fraction]0.1 E9/LNormal 0.0-0.2FThe University of Toledo Medical CenterComment on above:Performed By: #### [id number] #### [facility] [address] [place] [address]Vavmaazdsym (Bld) [#/Vol]0.4 E9/LNormal0.0-0.5FThe University of Toledo Medical CenterComment on above:Performed By: #### [id number] #### [facility] [address] [place] [address]Bpfqvuajdmk/100 WBC (Bld)4.3 %Normal0.0-8.0[facility] HospitalComment on above:Performed By: #### [id number] #### [facility] [address] [place] [address]Eevihubbpdg distribution width (RBC) [Ratio]17.3 %High10.9-14.2 [facility] HospitalComment on above:Performed By: #### [id number] #### [facility] [address] [place] [address]Rxunlomnft (Bld) [Volume fraction]26.8 %Low37.7-49.0[facility] HospitalComment on above:Performed By: #### [id number] #### [facility] [address] [place] [address]Nruphdezvf (Bld) [Mass/Vol]8.8 g/dLLow13.5-17.5FThe University of Toledo Medical CenterComment on above:Performed By: #### [id number] #### [facility] [address] [place] [address]Vhhjetqkttv Auto Ql (Bld)PRESENTInvalid Interpretation Code [facility] HospitalComment on above:Performed By: #### [id number] #### [facility] [address] [place] [address]Qayycmpypyf (Bld) [#/Vol]2.3 E9/LNormal1.0-4.0[facility] HospitalComment on above:Performed By: #### [id number] #### [facility] [address], [place] [address]Olipxrvjyrp/100 WBC (Bld)22.6 %Vyjckb83.0-50.0[facility] HospitalComment on above:Performed By: #### [id number] #### [facility] [address] [place] [address]FYT (RBC) [Entitic mass]24.5 pgLow27.0-34.0[facility] HospitalComment on above:Performed By: #### [id number] #### [facility] [address] [place] [address]YOJY (RBC) [Mass/Vol]33.0 g/hXShksna94.4-36.0[facility] HospitalComment on above:Performed By: #### [id number] #### [facility] [address] [place] [address]YFV (RBC) [Entitic vol]74.2 fLLow80.0-100.0[facility] HospitalComment on above:Performed By: #### [id number] #### [facility] [address] [place] [address]Zckdmjhjbx Ql (Bld)PRESENTInvalid Interpretation CodeOhiohealth Grady Memorial HospitalComment on above:Performed By: #### [id number] #### [facility] [address] [place] [address]Rfxwyltjv (Bld) [#/Vol]0.9 E9/LNormal0.2-1.0[facility] HospitalComment on above:Performed By: #### [id number] #### [facility] [address] [place] [address]Uenpspufopi (Bld) [#/Vol]6.6 E9/LNormal2.0-7.5FThe University of Toledo Medical CenterComment on above:Performed By: #### [id number] #### [facility] [address] [place] [address]Xezgwpmfwea/100 WBC (Bld)63.4 %Wuyviy21.0-75.0[facility] HospitalComment on above:Performed By: #### [id number] #### [facility] [address] [place] [address]Cwvlhlzi573.0 E9/RDuttwf265.0-500.0[facility] Comment on above:Performed By: #### [id number] #### [facility] [address] [place] [address]Fswrbavg mean volume (Bld) [Entitic vol]8.7 fLNormal6.4-10.8 [facility] HospitalComment on above:Performed By: #### [id number] #### [facility] [address] [place] [address]OHS (Bld) [#/Vol]3.6 E12/LLow4.3-5.9[facility] Comment on above:Performed By: #### [id number] #### [facility] [address] [place] [address]EIL size Nom (Bld)SEE MORPHOLOGYInvalid Interpretation Code [facility] HospitalComment on above:Performed By: #### [id number] #### [facility] [address] [place] [address]DRW corrected for nucl RBC Auto (Bld) [#/Vol]10.4 E9/LNormal 4.0-11.0[facility] HospitalComment on above:Performed By: #### [id number] #### [facility] [address] [place] [address]Coprkgtdw Clinical Summaryon 82-48-5179Pykfjvjbz Clinical SummaryInpatient Clinical Summary [address] [address] Clinical Summary Person Information: Name: MYRA PICKARD SR Age: 58 Years : 1965 Sex: Male PCP: TERESA LYNCH DO Marital Status: Race: White Ethnicity: Non- or Language: Niuean Visit Id: Visit Reason: I70.261 Speciality: Acuity: Enc Type: Ambulatory/Same Day Surgery Med Service: Surgery Arrival: 01/08/2024 11:49:03 Discharge: Dispo Type: Address: [address] [place] [address] [address] [facility] [id number] Provider Notes: Diagnosis: Problems Active Gross hematuria [...] Tablets By Mouth 2 times a day. hydrochlorothiazide-valsartan (hydrochlorothiazide-valsartan 12.5 mg-160 mg Tab) By Mouth every [...] Follow up: With: Address: When: Mike Montes [address] [place], [place] [id number] Business (1) Comments: Call for followup appointment Type Location Start [facility] Office Visit [facility] [place] [facility] 02/12/2024 1:15 PM 02/12/2024 1:30 PM Confirmed Patient Education Information: CV - Cardiovascular PCI Discharge Instructions (CUSTOM)[facility] HospitalInpatient Patient Summaryon 74-00-5209Ruldrxsdd Patient Summary Inpatient Patient Summary [address] [address] Patient Discharge Instructions PERSON INFORMATION [...] Follow up: With: Address: When: Mike Montes [address] [place], [place] [id number] [facility] (1) Comments: Call for followup appointment In the event that this physician does not participate in your insurance network, please consult with your insurance company to find a nearby participating provider. Type Location Start [facility] Office Visit [facility] 02/12/2024 1:15 PM 02/12/2024 1:30 PM Confirmed Comment: IMATTEO SR, SCOTT A, have received the attached patient education materials/instructions and have verbalized understanding: Patient Signature Date Clinican/Nurse Signature Date HERE ARE THE [...] times a day. Last Dose: Next Dose: hydrochlorothiazide-valsartan (hydrochlorothiazide-valsartan 12.5 mg-160 mg Tab) By Mouth every [...] 1 Capsules By (more content not included)... [facility] HospitalInterdisciplinary Note - Nursingon 01-08-2024 Interdisciplinary Note - NursingInterdisciplinary Note - Nursing 1200-Right foot dressing removed, [...] with and covered with cast padding and KATHERYN.[facility] HospitaleGFRon 23-77-7467qLWE97 mL/min/1.73 m2Low >=[address] [place], [place] [address]Comment on above:Order Comment: Order added by Discern Expert.Performed By: #### [id number] #### [facility] [address], [place] [address]Btnwkkabwqc in LDL Calc [Mass/Vol]on 24-56-7567Hipftvgondo in LDL [Mass/Vol]47.0 mg/dLTuscarawas HospitalComment on above:<100 mg/dl UGUSVMW473-624 mg/dl NEAR OR ABOVE JUNCQVG140-757 mg/dl BORDERLINE FULM877-983 mg/dl HIGH>190 mg/dl VERY HIGHCholesterol in VLDL Calc [Mass/Vol]on 67-83-9773Kxgttplvazh in VLDL [Mass/Vol]54.0 mg/dLTuscarawas HospitalErythrocyte distribution width Auto (RBC) [Ratio]on 18-09-9084Tnnugroburv distribution width (RBC) [Ratio]15.9 %High11.0-15.0[facility] HospitalEstimated glomerular filtration rate (GFR) non- Americanon 74-56-7923YET/1.73 sq M.predicted among non-blacks MDRD (S/P/Bld) [Vol rate/Area]31 mL/min/{1.73_m2}Low>=60T[facility]carawas HospitalGlobulin Calc (S) [Mass/Vol]on 02-32-0780Wmpginqu (S) [Mass/Vol]3.9 g/dLTuscarawas HospitalGlucose mean value [Mass/volume] in Blood Estimated from glycated hemoglobinon 73-36-4275Wxzuonu glucose Estimated from glycated hemoglobin (Bld) [Mass/Vol]163 mg/dLTuscarawas HospitalHematocrit Auto (Bld) [Volume fraction]on 42-75-0687Apxpgclgla (Bld) [Volume fraction]25.6 %Low42.0-54.0[facility] HospitalHemoglobin [Mass/volume] in Blood on 09-99-3768Dvmtipeolr (Bld) [Mass/Vol]8.0 g/dLLow14.0-18.0[facility] HospitalIron binding capacity [Mass/volume] in Serum or Plasmaon 65-83-0373Vbyg binding capacity [Mass/Vol]286.0 ug/dL250.0-450.0[facility] HospitalIron saturation [Mass Fraction] in Serum or Plasmaon 62-21-7864Uaty saturation [Mass fraction]2.8 %[facility] - Chemistry and Chemistry - challengeon 03-51-1446Fxdenxxva (Vitamin B12) [Mass/Vol]156.0 pg/dBTyn804.0-986.0[facility] Ferritin [Mass/Vol]16.0 ng/mLLow26.0-388.0[facility] HospitalIron [Mass/Vol]8.0 ug/dLLow65.0-175.0[facility] HospitalTransferrin [Mass/Vol]241 mg/xM455-670EhgtzruinTuscarawas HospitalComment on above: Performed at: [employer] [facility] [address] [id number] Director: Uriel Borrero PhD, Phone: [phone] [Mass/Vol]2.4 g/dLLow 3.4-5.0[facility] HospitalALP [Catalytic activity/Vol]172 U/LHigh 46-116T[facility] HospitalALT [Catalytic activity/Vol]21 U/L16-63 [facility] HospitalAST [Catalytic activity/Vol]8 U/FHgw81-99 [facility] HospitalBilirubin [Mass/Vol]0.2 mg/dL0.2-1.0[facility] HospitalCalcium [Mass/Vol]8.4 mg/dLLow8.5-10.1FWhite HospitalChloride [Moles/Vol]98 mmol/C32-809GjgomfaakTuscarawas HospitalCholesterol [Mass/Vol]127 mg/dL<=200[facility] Cholesterol in HDL [Mass/Vol]26 mg/gAMhc73-65DmhtvwinbTuscarawas Hospital Comment on above:> or =60 mg/dl - LOW CARDIOVASCULAR RISK<40 mg/dl - HIGH CARDIOVASCULAR RISKCO2 [Moles/Vol]30.5 mmol/L21.0-32.0[facility] HospitalCreatinine [Mass/Vol]2.22 mg/dLHigh0.70-1.30[facility] HospitalGFR/1.73 sq M.predicted MDRD (S/P/Bld) [Vol rate/Area]37 mL/min/{1.73_m2} Low>=60T[facility] HospitalGlucose [Mass/Vol]348 mg/xFBsxo45-047 [facility] HospitalPotassium [Moles/Vol]3.9 mmol/L3.5-5.1FWhite HospitalProtein [Mass/Vol]6.3 g/dLLow6.4-8.2FSelect Medical Specialty Hospital - Cincinnati Northodium [Moles/Vol]137 mmol/H035-004UsbtzwtwvTuscarawas HospitalTriglyceride [Mass/Vol]270 mg/dLHigh<=150[facility] TSH Qn3.218 m[IU]/L0.358-3.740T[facility] HospitalUrea nitrogen [Mass/Vol]21.0 mg/dLHigh7.0-18.0[facility] HospitalUrea nitrogen/Creatinine [Mass ratio]9.5 mg/mgTuscarawas Hospital Laboratory - Hematology and Cell countson 69-97-6829BwY2d (Bld) [Mass fraction] 7.3 %High4.5-6.2FWhite HospitalComment on above:ADA RECOMMENDED LIMIT 4.0 - 6.0ADA THERAPEUTIC TARGET < 7.0ACTION SUGGESTED> 7.0 Leukocytes [#/volume] corrected for nucleated erythrocytes in Blood by Automated counon 65-86-1971SBP corrected for nucl RBC Auto (Bld) [#/Vol]8.1 10 3/uL 4.0-11.0[facility] HospitalH Auto (RBC) [Entitic mass]on 27-23-3707EKL (RBC) [Entitic mass]24.3 pgLow25.9-34.0[facility] HospitalMCHC Auto (RBC) [Mass/Vol]on 85-27-8912DNFI (RBC) [Mass/Vol]31.3 g/dL 29.9-35.2FWhite HospitalMCV Auto (RBC) [Entitic vol]on 38-18-8678JSX (RBC) [Entitic vol]77.8 fLLow80.0-94.0[facility] HospitalNo Panel Informationon 29-99-4333Jprpkz9.6 ng/mL>3.0[facility] HospitalComment on above:A serum folate concentration of less than 3.1 ng/mL isconsidered to represent clinical deficiency.Performed at: [facility] [id number] Director: Uriel Borrreo PhD, Phone: [phone] ng/mL>3.0[facility]241 mg/zQ164-519 [facility]156.0 pg/lBWek813.0-986.0[facility]16.0 ng/mLLow26.0-388.0[facility]8.0 ug/dL Low65.0-175.0[facility] HospitalTroponin I High Sensitivity5.8 pg/mL4.0-76.1FWhite HospitalComment on above:CUT-OFF POINTS HAVE BEEN ESTABLISHED BASED ON THE FOURTHUNIVERSAL DEFINITION OF MYOCARDIAL INFARCTION. THE UPPERREFERENCE LIMIT (URL) OF TROPONIN, DEFINED THE 99THPERCENTILE OF cTnI DISTRIBUTION IN A REFERENCE POPULATION,HAS BEEN CONFIRMED THE DECISION THRESHOLD FOR MIDIAGNOSIS.99TH PERCENTILE = 76.2 PG/MLNOTE: HIGH-SENSITIVITY TROPONIN ASSAY IS NOT INTENDED TO BEUSED IN ISOLATION BUT SHOULD BE INTERPRETED IN CONJUNCTIONWITH OTHER DIAGNOSTIC AND CLINICAL INFORMATION.5.8 pg/mL4.0-76.1FWhite Hospital3.218 u[iU]/mL 0.358-3.740[facility]7.3 %High4.5-6.2FWhite Hospital127 mg/dL<=200[facility]26 mg/xISlw09-96 [facility]2.4 g/dLLow3.4-5.0[facility]172 U/RUjif55-805EtizdpsddTuscarawas Hospital270 mg/dLHigh<=150 [facility]21 U/B42-32MopctqisoTuscarawas Hospital8 U/IMgi63-40XdpsrgkjxTuscarawas Hospital9.5FWhite Hospital 21.0 mg/dLHigh7.0-18.0[facility]8.4 mg/dLLow8.5-10.1 [facility]98 mmol/P86-027XuifncvrsTuscarawas Hospital30.5 mmol/L21.0-32.0[facility]2.22 mg/dLHigh 0.70-1.30[facility]37Low>=60[facility]348 mg/xAEyxt84-908TobcxjcjnTuscarawas Hospital3.9 mmol/L3.5-5.1 [facility]137 mmol/Q298-482VagtzklllTuscarawas Hospital0.2 mg/dL0.2-1.0[facility]6.3 g/dLLow6.4-8.2 [facility] HospitalPlatelet mean volume Auto (Bld) [Entitic vol]on 72-02-6177Ayjnvoza mean volume (Bld) [Entitic vol]10.4 fL9.5-13.5FWhite HospitalPlatelets Auto (Bld) [#/Vol]on 55-30-2449Uctfxjgff (Bld) [#/Vol]297 10 3/fA371-953WuxbtqnerTuscarawas HospitalRBC Auto (Bld) [#/Vol] on 81-14-9785PXZ (Bld) [#/Vol]3.29 10 6/uLLow4.70-6.10[facility], Beachwooderum or plasma albumin/globulin mass ratioon 80-15-9983Xqklugr/Globulin [Mass ratio]0.6 {ratio}[facility], Beachwooderum or plasma anion gap determinationon 92-17-5939Ttcvf gap [Moles/Vol]12.4 mmol/LFSelect Medical Specialty Hospital - Cincinnati Northerum or plasma total cholesterol/high density lipoprotein (HDL) cholesterol mass stone 77-57-5325Xeroyvididx.total/Cholesterol in HDL [Mass ratio]4.9 {ratio}[facility] HospitalComment on above:3.3 - 4.4 LOW RISK4.4 - 7.1 AVERAGE RISK7.1 - 11.0 MODERATE RISK>11.0 HIGH RISKBasophils Auto (Bld) [#/Vol]on 10-58-3290Icrgqkwxf (Bld) [#/Vol]0.1 10 3/uL0.0-0.1FWhite HospitalBasophils/100 WBC Auto (Bld)on 62-15-4565Ilwujnatl/100 WBC (Bld)0.7 %0.2-2.0[facility] HospitalEosinophils/100 WBC Auto (Bld)on 07-18-2814Pcetkdlykhu/100 WBC (Bld)2.3 %0.9-7.0[facility]aw[facility] HospitalErythrocyte distribution width Auto (RBC) [Ratio]on 12-30-2023 Erythrocyte distribution width (RBC) [Ratio]15.9 %High11.0-15.0[facility] HospitalEstimated glomerular filtration rate (GFR) non- Americanon 53-72-2557JUS/1.73 sq M.predicted among non-blacks MDRD (S/P/Bld) [Vol rate/Area]30 mL/min/{1.73_m2}Low>=60[facility] Hematocrit Auto (Bld) [Volume fraction]on 29-64-4643Gtirgiqsds (Bld) [Volume fraction]27.1 %Low42.0-54.0[facility] HospitalHemoglobin [Mass/volume] in Bloodon 92-04-9987Ijzcwcuhqz (Bld) [Mass/Vol]8.5 g/dLLow 14.0-18.0[facility] HospitalLaboratory - Chemistry and Chemistry - challengeon 03-99-9841Rokrjxn [Mass/Vol]9.2 mg/dL8.5-10.1FWhite HospitalChloride [Moles/Vol]95 mmol/GEyn82-368MtmeroqpqTuscarawas HospitalCO2 [Moles/Vol]27.2 mmol/L21.0-32.0[facility] Creatinine [Mass/Vol]2.23 mg/dLHigh0.70-1.30[facility] GFR/1.73 sq M.predicted MDRD (S/P/Bld) [Vol rate/Area]37 mL/min/{1.73_m2}Low>=60 [facility] HospitalGlucose [Mass/Vol]193 mg/sPXauk76-235JqlakopzaTuscarawas HospitalPotassium [Moles/Vol]3.6 mmol/L3.5-5.1FSelect Medical Specialty Hospital - Cincinnati Northodium [Moles/Vol]132 mmol/DHoc471-056OkxwikfqmTuscarawas HospitalUrea nitrogen [Mass/Vol]22.0 mg/dLHigh7.0-18.0[facility] HospitalUrea nitrogen/Creatinine [Mass ratio]9.9 mg/mgTuscarawas HospitalLaboratory - Hematology and Cell countson 01-46-0034Arpumuwh granulocytes/100 WBC (Bld)0.7 %High0.0-0.5FWhite Hospital Leukocytes [#/volume] corrected for nucleated erythrocytes in Blood by Automated counon [id number] corrected for nucl RBC Auto (Bld) [#/Vol]10.7 10 3/uL 4.0-11.0[facility]aw[facility] HospitalLymphocytes Auto (Bld) [#/Vol]on 96-07-5567Oipxbinumbi (Bld) [#/Vol]2.3 10 3/uL1.2-3.8[facility]awas HospitalLymphocytes/100 WBC Auto (Bld)on 96-32-7544Ssnklvgznzc/100 WBC (Bld)21.5 % 20.5-60.0[facility] HospitalH Auto (RBC) [Entitic mass]on 38-38-1461YLR (RBC) [Entitic mass]24.4 pgLow25.9-34.0[facility] HospitalMCHC Auto (RBC) [Mass/Vol]on 37-52-9075PHWE (RBC) [Mass/Vol]31.4 g/dL 29.9-35.2FWhite HospitalMCV Auto (RBC) [Entitic vol]on 73-05-5569OGW (RBC) [Entitic vol]77.7 fLLow80.0-94.0[facility] HospitalMonocytes Auto (Bld) [#/Vol]on 04-72-7671Wkghorlcc (Bld) [#/Vol]0.9 10 3/uLHigh0.3-0.8[facility] HospitalMonocytes/100 WBC Auto (Bld)on 13-62-1662Kfjshlqoi/100 WBC (Bld)8.4 %1.7-12.0[facility] Neutrophils Auto (Bld) [#/Vol]on 80-30-1508Xyhmifmcpxf (Bld) [#/Vol]7.1 10 3/uL High1.4-6.5FWhite HospitalNeutrophils/100 WBC Auto (Bld)on 63-97-3491Foojmqpbmij/100 WBC (Bld)66.4 %43.0-75.0[facility] HospitalNo Panel Informationon 95-54-2360Sgcjiisr I High Sensitivity5.7 pg/mL 4.0-76.1FWhite HospitalComment on above:CUT-OFF POINTS HAVE BEEN ESTABLISHED BASED ON THE FOURTHUNIVERSAL DEFINITION OF MYOCARDIAL INFARCTIO N. THE UPPERREFERENCE LIMIT (URL) OF TROPONIN, DEFINED THE 99THPERCENTILE OF cTnI DISTRIBUTION IN A REFERENCE POPULATION,HAS BEEN CONFIRMED THE DECISION THRESHOLD FOR MIDIAGNOSIS.99TH PERCENTILE = 76.2 PG/MLNOTE: HIGH-SENSITIVITY TROPONIN ASSAY IS NOT INTENDED TO BEUSED IN ISOLATION BUT SHOULD BE INTERPRETED IN CONJUNCTIONWITH OTHER DIAGNOSTIC AND CLINICAL INFORMATION.5.7 pg/mL4.0-76.1 [facility] HospitalEosinophils # (Auto)0.3 10 3/uL0.0-0.7FWhite HospitalImmature Granulocyte # (Auto)0.07 10 3/uLHigh0.00-0.03 [facility]9.9[facility]22.0 mg/dL High7.0-18.0[facility]0.3 10 3/uL0.0-0.7FWhite Hospital9.2 mg/dL8.5-10.1FWhite Hospital95 mmol/RWww76-672IjrblvavjTuscarawas Hospital27.2 mmol/L21.0-32.0[facility]2.23 mg/dLHigh0.70-1.30[facility] 0.07 10 3/uLHigh0.00-0.03[facility]37Low>=60[facility]0.7 %High0.0-0.5FWhite Hospital193 mg/gURcra69-473BlqxpyoimTuscarawas Hospital3.6 mmol/L3.5-5.1FWhite Hospital132 mmol/BYca892-784FyrtwychqTuscarawas Hospital Platelet mean volume Auto (Bld) [Entitic vol]on 09-02-8565Itasmlmx mean volume (Bld) [Entitic vol]10.4 fL9.5-13.5FWhite HospitalPlatelets Auto (Bld) [#/Vol]on 71-39-2915Uluplctal (Bld) [#/Vol]368 10 3/lY684-300 [facility] HospitalRBC Auto (Bld) [#/Vol]on 41-42-9370CZL (Bld) [#/Vol]3.49 10 6/uLLow4.70-6.10[facility] Beachwooderum or plasma anion gap determinationon 99-76-8331Hjrmk gap [Moles/Vol]13.4 mmol/LFWhite HospitalBasophils Auto (Bld) [#/Vol]on 11-27-3278Ezeuaumyo (Bld) [#/Vol]0.1 10 3/uL0.0-0.1FWhite HospitalBasophils/100 WBC Auto (Bld)on 90-60-9171Dhqcyungt/100 WBC (Bld)0.4 %0.2-2.0[facility] HospitalEosinophils/100 WBC Auto (Bld)on 05-16-5689Waddvmhsfrj/100 WBC (Bld)1.0 % 0.9-7.0[facility] HospitalErythrocyte distribution width Auto (RBC) [Ratio]on 63-37-6055Pnwjorthvek distribution width (RBC) [Ratio]16.4 %High 11.0-15.0[facility] HospitalEstimated glomerular filtration rate (GFR) non- Americanon 37-83-9129TDC/1.73 sq M.predicted among non-blacks MDRD (S/P/Bld) [Vol rate/Area]37 mL/min/{1.73_m2}Low>=60T[facility] HospitalGlobulin Calc (S) [Mass/Vol]on 66-17-8530Koqlbwsk (S) [Mass/Vol] 3.3 g/dLTuscarawas HospitalHematocrit Auto (Bld) [Volume fraction] on 07-45-0949Nuckzcxxzp (Bld) [Volume fraction]23.6 %Low42.0-54.0[facility] HospitalComment on above:RESULTS CALLED TO JOHNNY BOUDREAUX RN Hemoglobin [Mass/volume] in Bloodon 69-97-2277Erleqfaerq (Bld) [Mass/Vol]7.1 g/dLLow14.0-18.0[facility] HospitalLaboratory - Chemistry and Chemistry - challengeon 40-82-6458Ufeuilw [Mass/Vol]2.2 g/dLLow3.4-5.0[facility] HospitalALP [Catalytic activity/Vol]127 U/RJgfl50-446YfiozgpxmTuscarawas HospitalALT [Catalytic activity/Vol]13 U/DFyd08-62XchzincjiTuscarawas HospitalAST [Catalytic activity/Vol]10 U/QFiv11-08XimcjknehTuscarawas HospitalBilirubin [Mass/Vol]0.2 mg/dL0.2-1.0[facility] HospitalCalcium [Mass/Vol]7.4 mg/dLLow8.5-10.1FWhite HospitalChloride [Moles/Vol]103 mmol/V23-691BtyiclbrcTuscarawas HospitalCO2 [Moles/Vol]23.4 mmol/L21.0-32.0[facility] HospitalCreatinine [Mass/Vol]1.88 mg/dLHigh0.70-1.30[facility] HospitalGFR/1.73 sq M.predicted MDRD (S/P/Bld) [Vol rate/Area]45 mL/min/{1.73_m2}Low>=60[facility] HospitalGlucose [Mass/Vol]357 mg/vJGajo90-316ArmgzmtnnTuscarawas HospitalMagnesium [Mass/Vol]1.5 mg/dLLow1.8-2.4FWhite HospitalPotassium [Moles/Vol]4.4 mmol/L3.5-5.1FWhite Hospital Protein [Mass/Vol]5.5 g/dLLow6.4-8.2FSelect Medical Specialty Hospital - Cincinnati Northodium [Moles/Vol]136 mmol/L115-904GfjqozaoyTuscarawas HospitalUrea nitrogen [Mass/Vol]30.0 mg/dLHigh7.0-18.0[facility] HospitalUrea nitrogen/Creatinine [Mass ratio]16.0 mg/mgTuscarawas Hospital Laboratory - Hematology and Cell countson 72-19-2304Jeewpjod granulocytes/100 WBC (Bld)0.9 %High0.0-0.5FWhite HospitalLeukocytes [#/volume] corrected for nucleated erythrocytes in Blood by Automated counon 84-61-9970EDQ corrected for nucl RBC Auto (Bld) [#/Vol]13.3 10 3/uLHigh4.0-11.0[facility] HospitalLymphocytes Auto (Bld) [#/Vol]on 59-90-2778Yofngkgdths (Bld) [#/Vol]2.1 10 3/uL1.2-3.8[facility] HospitalLymphocytes/100 WBC Auto (Bld)on 21-86-8284Abjjmgfjbyh/100 WBC (Bld)15.7 %Low20.5-60.0[facility] HospitalH Auto (RBC) [Entitic mass]on 36-31-4468HCQ (RBC) [Entitic mass]25.0 pgLow25.9-34.0[facility] HospitalMCHC Auto (RBC) [Mass/Vol]on 05-89-2050COJA (RBC) [Mass/Vol]30.1 g/dL29.9-35.2FWhite HospitalMCV Auto (RBC) [Entitic vol]on 94-34-9765FUG (RBC) [Entitic vol]83.1 fL80.0-94.0[facility] HospitalMonocytes Auto (Bld) [#/Vol]on 83-33-2341Jisjavuni (Bld) [#/Vol]0.6 10 3/uL0.3-0.8[facility] HospitalMonocytes/100 WBC Auto (Bld)on 48-22-2594Xfkujhqsr/100 WBC (Bld)4.7 %1.7-12.0[facility] HospitalNeutrophils Auto (Bld) [#/Vol]on 51-19-7133Ufmwpaleevi (Bld) [#/Vol]10.3 10 3/uLHigh1.4-6.5FWhite HospitalNeutrophils/100 WBC Auto (Bld)on 12-23-2023 Neutrophils/100 WBC (Bld)77.3 %High43.0-75.0[facility] HospitalNo Panel Informationon 89-02-1034Hfhnzqctetb # (Auto)0.1 10 3/uL0.0-0.7FWhite HospitalImmature Granulocyte # (Auto)0.12 10 3/uLHigh0.00-0.03 [facility]1.5 mg/dLLow1.8-2.4FWhite Hospital2.2 g/dLLow3.4-5.0[facility]0.1 10 3/uL0.0-0.7 [facility]127 U/NHhvr08-487JwxtgauouTuscarawas Hospital13 U/MHty55-33EdywuiyejTuscarawas Hospital10 U/QGsf06-12ImedkndkoTuscarawas Hospital16.0[facility]0.12 10 3/uLHigh 0.00-0.03[facility]30.0 mg/dLHigh7.0-18.0[facility]0.9 %High0.0-0.5FWhite Hospital7.4 mg/dLLow8.5-10.1FWhite Hospital103 mmol/J76-797TdknxvrpvTuscarawas Hospital23.4 mmol/L21.0-32.0[facility]1.88 mg/dLHigh0.70-1.30[facility]45Low>=60[facility]357 mg/oCSsol00-992LjaafeccoTuscarawas Hospital4.4 mmol/L 3.5-5.1FWhite Hospital136 mmol/J161-980TqlqhcqizTuscarawas Hospital0.2 mg/dL0.2-1.0[facility]5.5 g/dLLow 6.4-8.2FWhite HospitalPlatelet mean volume Auto (Bld) [Entitic vol]on 31-38-2254Icbtzqtn mean volume (Bld) [Entitic vol]10.3 fL9.5-13.5 [facility] HospitalPlatelets Auto (Bld) [#/Vol]on 12-23-2023 Platelets (Bld) [#/Vol]373 10 3/hW027-616BixkybvusTuscarawas HospitalRBC Auto (Bld) [#/Vol]on 86-32-4967YAX (Bld) [#/Vol]2.84 10 6/uLLow4.70-6.10 [facility] Beachwooderum or plasma albumin/globulin mass ratioon 38-04-2733Hftkkma/Globulin [Mass ratio]0.7 {ratio}[facility], Beachwooderum or plasma anion gap determinationon 42-46-6369Peqcj gap [Moles/Vol] 14.0 mmol/LFWhite HospitalBasophils Auto (Bld) [#/Vol]on 95-40-9841Evvofzqpl (Bld) [#/Vol]0.0 10 3/uL0.0-0.1FWhite HospitalBasophils/100 WBC Auto (Bld)on 68-79-3988Efqajjsig/100 WBC (Bld)0.2 % 0.2-2.0[facility] HospitalEosinophils/100 WBC Auto (Bld)on 71-00-2582Sqwothbxdch/100 WBC (Bld)0.1 %Low0.9-7.0[facility] HospitalErythrocyte distribution width Auto (RBC) [Ratio]on 53-02-8365Ycswzzymsxu distribution width (RBC) [Ratio]16.5 %High11.0-15.0[facility] HospitalEstimated glomerular filtration rate (GFR) non- Americanon 49-69-1401CVQ/1.73 sq M.predicted among non-blacks MDRD (S/P/Bld) [Vol rate/Area]23 mL/min/{1.73_m2}Low>=60T[facility] HospitalGlobulin Calc (S) [Mass/Vol]on 38-43-4840Wrzoqbhj (S) [Mass/Vol]3.8 g/dLTuscarawas HospitalHematocrit Auto (Bld) [Volume fraction]on 12-22-2023 Hematocrit (Bld) [Volume fraction]25.4 %Low42.0-54.0[facility] HospitalHemoglobin [Mass/volume] in Bloodon 59-40-2507Pconhtehsa (Bld) [Mass/Vol] 7.6 g/dLLow14.0-18.0[facility] HospitalLaboratory - Chemistry and Chemistry - challengeon 79-08-0438Qpmttmsyd Ql (U)NegativeNEGATIVETuscarawas HospitalGlucose (U) [Mass/Vol]mg/dLAbnormalNEGATIVETuscarawas HospitalKetones Ql (U)NegativeNEGATIVETuscarawas HospitalpH (U)6.5 [pH]5.0-9.0[facility], Beachwoodpecific gravity (U) [Rel density]<=1.758Npwmgdrb9.005-1.025[facility] Urobilinogen Qn (U)0.2 {Brendan'U}/dL0.2-1.0[facility] Calcium [Mass/Vol]7.2 mg/dLLow8.5-10.1FWhite HospitalChloride [Moles/Vol]95 mmol/DBzs49-092EglybwtdjTuscarawas HospitalCO2 [Moles/Vol] 21.7 mmol/L21.0-32.0[facility] HospitalCreatinine [Mass/Vol]2.80 mg/dLHigh0.70-1.30[facility] HospitalGFR/1.73 sq M.predicted MDRD (S/P/Bld) [Vol rate/Area]28 mL/min/{1.73_m2}Low>=60[facility] HospitalGlucose [Mass/Vol]683 mg/gVVmjb65-991IfeettmnvTuscarawas Hospital Comment on above:RESULTS CALLED TO Sai Pickard, RNPotassium [Moles/Vol] 4.8 mmol/L3.5-5.1FSelect Medical Specialty Hospital - Cincinnati Northodium [Moles/Vol]129 mmol/L Gqv463-615UevrpkszyTuscarawas HospitalUrea nitrogen [Mass/Vol]27.0 mg/dL High7.0-18.0[facility] HospitalUrea nitrogen/Creatinine [Mass ratio]9.6 mg/mgTuscarawas HospitalAlbumin [Mass/Vol]2.3 g/dLLow 3.4-5.0[facility] HospitalALP [Catalytic activity/Vol]143 U/LHigh 46-116[facility] HospitalALT [Catalytic activity/Vol]15 U/LLow 16-63[facility] HospitalAST [Catalytic activity/Vol]9 U/NQtm27-70 [facility] HospitalBilirubin [Mass/Vol]0.2 mg/dL0.2-1.0[facility] HospitalMagnesium [Mass/Vol]0.9 mg/dLLow1.8-2.4FWhite HospitalComment on above:RESULTS CALLED TO ANY SANTIAGO RNNatriuretic peptide B (Bld) [Mass/Vol]322.0 pg/mL<=900.0[facility] Protein [Mass/Vol]6.1 g/dLLow6.4-8.2FWhite HospitalLaboratory - Hematology and Cell countson 71-23-6548Zafvawuu granulocytes/100 WBC (Bld)0.9 %High0.0-0.5FWhite HospitalLaboratory - Specimen informationon 25-90-5461Dwjrdsoqyh (U)CLEARCLEARFWhite HospitalColor (U)LT. YELLOWYELLOWTuscarawas HospitalLaboratory - Urinalysison 77-57-7102Bphggdhsh esterase Test strip Ql (U)NegativeNEGATIVETuscarawas HospitalMucus Ql (Urine sed)NONE SEENNONE SEENTuscarawas HospitalNitrite Ql (U)NegativeNEGATIVETuscarawas HospitalProtein Ql (U)NegativeNEG/TRACETuscarawas HospitalLeukocytes [#/volume] corrected for nucleated erythrocytes in Blood by Automated counon 00-25-4255VKB corrected for nucl RBC Auto (Bld) [#/Vol]11.7 10 3/uLHigh4.0-11.0[facility] HospitalLymphocytes Auto (Bld) [#/Vol]on 15-77-3117Wwhhcdvtuvh (Bld) [#/Vol]0.9 10 3/uLLow1.2-3.8[facility] Lymphocytes/100 WBC Auto (Bld)on 02-65-2492Zwyybvnkaxe/100 WBC (Bld)7.6 %Low 20.5-60.0[facility] HospitalH Auto (RBC) [Entitic mass]on 07-42-9549AXE (RBC) [Entitic mass]24.4 pgLow25.9-34.0[facility] HospitalMCHC Auto (RBC) [Mass/Vol]on 67-16-3594ISRZ (RBC) [Mass/Vol]29.9 g/dL 29.9-35.2FWhite HospitalMCV Auto (RBC) [Entitic vol]on 49-53-7030BVR (RBC) [Entitic vol]81.7 fL80.0-94.0[facility] HospitalMonocytes Auto (Bld) [#/Vol]on 84-34-5091Aalvxgwpo (Bld) [#/Vol]0.2 10 3/uLLow0.3-0.8[facility] HospitalMonocytes/100 WBC Auto (Bld)on 37-67-4727Xyzljssvm/100 WBC (Bld)1.4 %Low1.7-12.0[facility] HospitalNeutrophils Auto (Bld) [#/Vol]on 73-19-8869Zujprgixfna (Bld) [#/Vol]10.5 10 3/uLHigh1.4-6.5FWhite HospitalNeutrophils/100 WBC Auto (Bld)on 31-28-7639Rnxyhllvetf/100 WBC (Bld)89.8 %High43.0-75.0[facility] HospitalNo Panel Informationon 42-19-6826Eldks BacteriaNONE SEEN #/HPF NONE SEENTuscarawas HospitalUrine Occult BloodNegativeNEGATIVE [facility] HospitalUrine Other CastsNONE SEEN #/LPFNONE SEEN [facility] HospitalUrine Other CrystalsNone Seen #/HPFNone Seen [facility] HospitalUrine RBC0-2 #/HPF0-2FWhite HospitalUrine Squamous Epithelial CellsNONE SEEN #/LPFNONE/[facility] HospitalUrine WBC0-2 #/HPFAbnormalNONE [facility]NONE SEEN #/LPFNONE/[facility] HospitalNone Seen #/HPF NONE [facility] HospitalNegativeNEG/TRACETuscarawas HospitalCLEARCLEARTuscarawas HospitalLT. YELLOWYELLOW [facility]>=1000 mg/dLAbnormalNEGATIVETuscarawas HospitalNONE SEENNONE [facility]6.55.0-9.0 [facility]0-2 #/HPFAbnormalNONE [facility]<=1.146Sooipqsi4.005-1.025[facility]0.2 EU/dL0.2-1.0[facility]9.6FWhite Hospital27.0 mg/dLHigh7.0-18.0[facility]7.2 mg/dLLow 8.5-10.1FWhite Hospital95 mmol/PPti26-649LkfzfygwxTuscarawas Hospital21.7 mmol/L21.0-32.0[facility]2.80 mg/dL High0.70-1.30[facility]28Low>=60[facility]683 mg/gKRtnt16-508KjotlptblTuscarawas Hospital4.8 mmol/L 3.5-5.1FWhite Hospital129 mmol/TPeq364-621LfnvymkaqTuscarawas HospitalEosinophils # (Auto)0.0 10 3/uL0.0-0.7FWhite HospitalImmature Granulocyte # (Auto)0.11 10 3/uLHigh0.00-0.03[facility] HospitalPhosphorus Level2.7 mg/dL2.6-4.7FWhite Hospital 322.0 pg/mL<=900.0[facility]0.9 mg/dLLow1.8-2.4FWhite Hospital2.7 mg/dL2.6-4.7FWhite Hospital0.0 10 3/uL0.0-0.7FWhite Hospital2.3 g/dLLow3.4-5.0[facility]143 U/TClns21-485EaujrnmqmTuscarawas Hospital15 U/AZcm06-53 [facility]9 U/TNhg21-26ClikfbybdTuscarawas Hospital 0.11 10 3/uLHigh0.00-0.03[facility]0.9 %High0.0-0.5 [facility]0.2 mg/dL0.2-1.0[facility]6.1 g/dLLow6.4-8.2FWhite HospitalPlatelet mean volume Auto (Bld) [Entitic vol]on 33-86-8674Bowpluio mean volume (Bld) [Entitic vol] 10.5 fL9.5-13.5FWhite HospitalPlatelets Auto (Bld) [#/Vol]on 42-95-6236Exbcxptsv (Bld) [#/Vol]400 10 3/rC553-901TnsmzbngwTuscarawas HospitalRBC Auto (Bld) [#/Vol]on 76-69-8799BGY (Bld) [#/Vol]3.11 10 6/uLLow 4.70-6.10[facility], Beachwooderum or plasma albumin/globulin mass ratioon 15-93-4884Jtvjiao/Globulin [Mass ratio]0.6 {ratio}[facility], Beachwooderum or plasma anion gap determinationon 42-92-3530Alnyt gap [Moles/Vol]17.1 mmol/LFWhite HospitalActivated partial thromboplastin time (aPTT) in platelet poor plasma by coagulation aon 12-21-2023 aPTT Coag (PPP) [Time]26.6 s22.3-36.2FWhite HospitalBasophils Auto (Bld) [#/Vol]on 33-22-4117Tscjjekiz (Bld) [#/Vol]0.1 10 3/uL0.0-0.1 [facility] HospitalBasophils/100 WBC Auto (Bld)on 12-21-2023 Basophils/100 WBC (Bld)0.8 %0.2-2.0[facility] Eosinophils/100 WBC Auto (Bld)on 34-79-0370Oorddediiuk/100 WBC (Bld)4.2 %0.9-7.0 [facility] HospitalErythrocyte distribution width Auto (RBC) [Ratio]on 82-39-0875Jgmhgdxpqim distribution width (RBC) [Ratio]16.6 %High 11.0-15.0[facility] HospitalEstimated glomerular filtration rate (GFR) non- Americanon 49-32-2573ZSL/1.73 sq M.predicted among non-blacks MDRD (S/P/Bld) [Vol rate/Area]23 mL/min/{1.73_m2}Low>=60T[facility] HospitalGlobulin Calc (S) [Mass/Vol]on 23-79-4274Rrbqxaea (S) [Mass/Vol] 4.0 g/dLTuscarawas HospitalHematocrit Auto (Bld) [Volume fraction] on 78-83-0608Wkbdjaocvi (Bld) [Volume fraction]28.2 %Low42.0-54.0[facility] HospitalHemoglobin [Mass/volume] in Bloodon 03-42-5134Zxeygzcacu (Bld) [Mass/Vol]8.6 g/dLLow14.0-18.0[facility] HospitalINR in Platelet poor plasma by Coagulation assayon 38-51-2221HYD Coag (PPP) [Relative time]1.05 {INR}[facility] HospitalComment on above:DESIRED INR:2.0-3.0 CONDITIONS NOT LISTED BELOW2.5-3.5 FOR PROSTHETIC HEART VALVE REPLACEMENT2.5-3.5 RECURRENT THROMBOSISLaboratory - Chemistry and Chemistry - challengeon 40-66-6816Vksipbc [Mass/Vol]2.8 g/dLLow3.4-5.0[facility] HospitalALP [Catalytic activity/Vol]132 U/AAmad23-552XnmerduwrTuscarawas HospitalALT [Catalytic activity/Vol]13 U/ZRmq39-52FzsthoonuTuscarawas HospitalAST [Catalytic activity/Vol]10 U/NQlr43-77CiskjawpzTuscarawas HospitalBilirubin [Mass/Vol]0.3 mg/dL0.2-1.0[facility] HospitalCalcium [Mass/Vol]7.8 mg/dLLow8.5-10.1FWhite Hospital Chloride [Moles/Vol]99 mmol/U37-564ZsfrjftmfTuscarawas HospitalCO2 [Moles/Vol]29.9 mmol/L21.0-32.0[facility] HospitalCreatinine [Mass/Vol]2.79 mg/dLHigh0.70-1.30[facility] HospitalGFR/1.73 sq M.predicted MDRD (S/P/Bld) [Vol rate/Area]29 mL/min/{1.73_m2}Low>=60[facility] HospitalGlucose [Mass/Vol]56 mg/nASgm80-615BjrgsiwlvTuscarawas HospitalLactate [Moles/Vol]1.6 mmol/L0.4-2.0[facility] HospitalNatriuretic peptide B (Bld) [Mass/Vol]222.0 pg/mL<=900.0[facility] HospitalPotassium [Moles/Vol]3.3 mmol/LLow3.5-5.1FWhite HospitalProtein [Mass/Vol]6.8 g/dL6.4-8.2FWhite Hospital Sodium [Moles/Vol]138 mmol/D635-081SedzudgttTuscarawas HospitalUrea nitrogen [Mass/Vol]29.0 mg/dLHigh7.0-18.0[facility] HospitalUrea nitrogen/Creatinine [Mass ratio]10.4 mg/mgTuscarawas Hospital Laboratory - Hematology and Cell countson 40-36-4199Mhvarbvv granulocytes/100 WBC (Bld)1.0 %High0.0-0.5FWhite HospitalLeukocytes [#/volume] corrected for nucleated erythrocytes in Blood by Automated counon 09-84-4162XHF corrected for nucl RBC Auto (Bld) [#/Vol]12.6 10 3/uLHigh4.0-11.0[facility] HospitalLymphocytes Auto (Bld) [#/Vol]on 06-11-6977Hfabuestguy (Bld) [#/Vol]3.4 10 3/uL1.2-3.8[facility] HospitalLymphocytes/100 WBC Auto (Bld)on 29-61-6474Vqgiwsqwtav/100 WBC (Bld)26.6 %20.5-60.0[facility]H Auto (RBC) [Entitic mass]on 67-97-4290CZU (RBC) [Entitic mass]24.7 pgLow25.9-34.0[facility] HospitalMCHC Auto (RBC) [Mass/Vol]on 42-21-8222FXXA (RBC) [Mass/Vol]30.5 g/dL29.9-35.2FSt. Charles HospitalV Auto (RBC) [Entitic vol]on 13-80-5413GYM (RBC) [Entitic vol]81.0 fL80.0-94.0[facility] HospitalMonocytes Auto (Bld) [#/Vol]on 97-83-8553Xaictvcth (Bld) [#/Vol]0.6 10 3/uL0.3-0.8[facility] HospitalMonocytes/100 WBC Auto (Bld)on 37-24-1767Atudlxido/100 WBC (Bld)4.9 %1.7-12.0[facility] HospitalNeutrophils Auto (Bld) [#/Vol]on 23-36-5541Jfvymsogzey (Bld) [#/Vol]7.9 10 3/uLHigh1.4-6.5FWhite HospitalNeutrophils/100 WBC Auto (Bld)on 12-21-2023 Neutrophils/100 WBC (Bld)62.5 %43.0-75.0[facility] HospitalNo Panel Informationon 43-93-1198Losgpsdf I High Sensitivity5.1 pg/mL4.0-76.1 [facility] HospitalComment on above:CUT-OFF POINTS HAVE BEEN ESTABLISHED BASED ON THE FOURTHUNIVERSAL DEFINITION OF MYOCARDIAL INFARCTION. THE UPPERREFERENCE LIMIT (URL) OF TROPONIN, DEFINED THE 99THPERCENTILE OF cTnI DISTRIBUTION IN A REFERENCE POPULATION,HAS BEEN CONFIRMED THE DECISION THRESHOLD FOR MIDIAGNOSIS.99TH PERCENTILE = 76.2 PG/MLNOTE: HIGH-SENSITIVITY TROPONIN ASSAY IS NOT INTENDED TO BEUSED IN ISOLATION BUT SHOULD BE INTERPRETED IN CONJUNCTIONWITH OTHER DIAGNOSTIC AND CLINICAL INFORMATION.5.1 pg/mL4.0-76.1 [facility] HospitalEosinophils # (Auto)0.5 10 3/uL0.0-0.7FWhite HospitalImmature Granulocyte # (Auto)0.13 10 3/uLHigh0.00-0.03 [facility] HospitalVenous Blood Partial Pressure CO239.8 mm[Hg]Low 40.0-52.0[facility] HospitalVenous Blood pH7.702Oqoi9.330-7.430 [facility]222.0 pg/mL<=900.0[facility]1.6 mmol/L0.4-2.0[facility]39.8 mm[Hg]Low40.0-52.0 [facility]7.714Eign6.330-7.430[facility]2.8 g/dLLow3.4-5.0[facility]0.5 10 3/uL0.0-0.7 [facility]132 U/CYjld93-211LzvtrfermTuscarawas Hospital13 U/UEoe51-16HdlgvcresTuscarawas Hospital10 U/SJlg81-94OqggxkszrTuscarawas Hospital10.4FWhite Hospital0.13 10 3/uLHigh 0.00-0.03[facility]29.0 mg/dLHigh7.0-18.0[facility]1.0 %High0.0-0.5FWhite Hospital7.8 mg/dLLow8.5-10.1FWhite Hospital99 mmol/H76-260EuhuthzfjTuscarawas Hospital29.9 mmol/L21.0-32.0[facility]2.79 mg/dLHigh0.70-1.30[facility]29Low>=60[facility]56 mg/aJFms64-045JbuldusfaTuscarawas Hospital3.3 mmol/LLow 3.5-5.1FWhite Hospital138 mmol/S987-847RukncgkdkTuscarawas Hospital0.3 mg/dL0.2-1.0[facility]6.8 g/dL6.4-8.2 [facility] HospitalNo Panel InformationOrdered By: Марина Flores on 77-56-5599Dyejw Culture 2FWhite HospitalBlood Culture 1 [facility] HospitalPlatelet mean volume Auto (Bld) [Entitic vol]on 12-61-3525Ikcrlpiy mean volume (Bld) [Entitic vol]10.2 fL9.5-13.5FWhite HospitalPlatelets Auto (Bld) [#/Vol]on 10-27-7616Bjhqmxikm (Bld) [#/Vol]502 10 3/zUQkkj774-987AxrpuxfwaTuscarawas HospitalProthrombin time (PT)on 00-96-7888WF Coag (PPP) [Time]11.1 s9.0-11.6FWhite HospitalRBC Auto (Bld) [#/Vol]on 65-51-8625VBW (Bld) [#/Vol]3.48 10 6/uLLow 4.70-6.10[facility] Beachwooderum or plasma albumin/globulin mass ratioon 99-10-6760Ggcdleg/Globulin [Mass ratio]0.7 {ratio}[facility], Beachwooderum or plasma anion gap determinationon 46-15-5307Mszgu gap [Moles/Vol]12.4 mmol/LFWhite HospitalLon 68-57-8182DWbqcacOwu [facility] Physician GroupBasophils Auto (Bld) [#/Vol]on 73-86-4455Ciwxhqwid (Bld) [#/Vol]0.1 10 3/uL0.0-0.1FWhite HospitalBasophils/100 WBC Auto (Bld)on 33-77-9579Bhvoowzaq/100 WBC (Bld)0.9 %0.2-2.0[facility] HospitalEosinophils/100 WBC Auto (Bld)on 01-83-2733Wfgagsbhdbz/100 WBC (Bld)2.6 %0.9-7.0[facility] HospitalErythrocyte distribution width Auto (RBC) [Ratio]on 38-46-7272Tjacbprudld distribution width (RBC) [Ratio]17.7 %High11.0-15.0[facility] HospitalEstimated glomerular filtration rate (GFR) non- Americanon 05-67-0862DHU/1.73 sq M.predicted among non- blacks MDRD (S/P/Bld) [Vol rate/Area]38 mL/min/{1.73_m2}Low>=60T[facility] HospitalGlobulin Calc (S) [Mass/Vol]on 08-40-8888Jdnxsfly (S) [Mass/Vol]3.9 g/dLTuscarawas HospitalHematocrit Auto (Bld) [Volume fraction]on 44-22-3355Yesvsazskv (Bld) [Volume fraction]34.2 %Low42.0-54.0 [facility] HospitalHemoglobin [Mass/volume] in Bloodon 12-10-2023 Hemoglobin (Bld) [Mass/Vol]10.5 g/dLLow14.0-18.0[facility] HospitalLaboratory - Chemistry and Chemistry - challengeon 23-46-1357Gofkbjw [Mass/Vol]2.8 g/dLLow3.4-5.0[facility] HospitalALP [Catalytic activity/Vol]119 U/WLpct98-207YnmlmlwibTuscarawas HospitalALT [Catalytic activity/Vol]11 U/SXlr31-69AodwgqtrsTuscarawas HospitalAST [Catalytic activity/Vol]10 U/QRhi71-74BxeqpgcdlTuscarawas HospitalBilirubin [Mass/Vol] 0.4 mg/dL0.2-1.0[facility] HospitalCalcium [Mass/Vol]8.4 mg/dLLow 8.5-10.1FWhite HospitalChloride [Moles/Vol]101 mmol/L98-107 [facility] HospitalCO2 [Moles/Vol]27.0 mmol/L21.0-32.0[facility] HospitalCreatinine [Mass/Vol]1.83 mg/dLHigh0.70-1.30[facility] HospitalGFR/1.73 sq M.predicted MDRD (S/P/Bld) [Vol rate/Area]46 mL/min/{1.73_m2}Low>=60[facility] HospitalGlucose [Mass/Vol]113 mg/oIKfmq40-470SlecsljizTuscarawas HospitalPotassium [Moles/Vol]3.3 mmol/L Low3.5-5.1FWhite HospitalProtein [Mass/Vol]6.7 g/dL6.4-8.2 [facility], Beachwoododium [Moles/Vol]134 mmol/VBvf076-287YoyckalrgTuscarawas HospitalUrea nitrogen [Mass/Vol]21.0 mg/dLHigh7.0-18.0[facility] HospitalUrea nitrogen/Creatinine [Mass ratio]11.5 mg/mgTuscarawas HospitalLaboratory - Hematology and Cell countson 12-10-2023 Immature granulocytes/100 WBC (Bld)0.3 %0.0-0.5FWhite Hospital Leukocytes [#/volume] corrected for nucleated erythrocytes in Blood by Automated counon 28-56-9498JJB corrected for nucl RBC Auto (Bld) [#/Vol]9.8 10 3/uL 4.0-11.0[facility] HospitalLymphocytes Auto (Bld) [#/Vol]on 04-92-9412Whggfyopcyp (Bld) [#/Vol]1.5 10 3/uL1.2-3.8T[facility] HospitalLymphocytes/100 WBC Auto (Bld)on 39-63-5849Rsuuugabela/100 WBC (Bld)15.8 % Low20.5-60.0[facility] HospitalMCH Auto (RBC) [Entitic mass]on 09-75-4973RXR (RBC) [Entitic mass]25.1 pgLow25.9-34.0[facility] HospitalMCHC Auto (RBC) [Mass/Vol]on 70-57-2033NZNI (RBC) [Mass/Vol]30.7 g/dL 29.9-35.2FWhite HospitalMCV Auto (RBC) [Entitic vol]on 82-59-4448VSE (RBC) [Entitic vol]81.6 fL80.0-94.0[facility] HospitalMonocytes Auto (Bld) [#/Vol]on 67-05-1479Uqcuypuhm (Bld) [#/Vol]1.2 10 3/uLHigh0.3-0.8[facility] HospitalMonocytes/100 WBC Auto (Bld)on 79-65-3620Gvaimjqft/100 WBC (Bld)11.9 %1.7-12.0[facility] Neutrophils Auto (Bld) [#/Vol]on 01-69-6217Hjqphbndbcq (Bld) [#/Vol]6.7 10 3/uL High1.4-6.5FWhite HospitalNeutrophils/100 WBC Auto (Bld)on 28-71-7524Rmcducgldim/100 WBC (Bld)68.5 %43.0-75.0[facility] HospitalNo Panel Informationon 70-68-2963Wkxvuktrwuv # (Auto)0.3 10 3/uL0.0-0.7 [facility] HospitalImmature Granulocyte # (Auto)0.03 10 3/uL 0.00-0.03[facility]2.8 g/dLLow3.4-5.0[facility]0.3 10 3/uL0.0-0.7FWhite Hospital119 U/LHigh 46-116[facility]11 U/DLav80-87BphcuvkpfTuscarawas Hospital10 U/ZFmm41-05SmeofmjycTuscarawas Hospital11.5F[facility] Hospital0.03 10 3/uL0.00-0.03[facility]21.0 mg/dL High7.0-18.0[facility]0.3 %0.0-0.5FWhite Hospital8.4 mg/dLLow8.5-10.1FWhite Hospital101 mmol/L 98-107[facility]27.0 mmol/L21.0-32.0[facility]1.83 mg/dLHigh0.70-1.30[facility]46Low>=60 [facility]113 mg/mDWium06-683NamjxwqgxTuscarawas Hospital3.3 mmol/LLow3.5-5.1FWhite Hospital134 mmol/LRzq246-729 [facility]0.4 mg/dL0.2-1.0[facility]6.7 g/dL6.4-8.2FWhite HospitalPlatelet mean volume Auto (Bld) [Entitic vol]on 11-68-6486Xnjhlwln mean volume (Bld) [Entitic vol]10.2 fL 9.5-13.5FWhite HospitalPlatelets Auto (Bld) [#/Vol]on 71-06-9556Wtwpgibpv (Bld) [#/Vol]240 10 3/rS943-081GnajgjfdaTuscarawas HospitalRBC Auto (Bld) [#/Vol]on 84-30-9035VFG (Bld) [#/Vol]4.19 10 6/uLLow 4.70-6.10[facility] Beachwooderum or plasma albumin/globulin mass ratioon 27-01-8468Mdhypxg/Globulin [Mass ratio]0.7 {ratio}[facility] Beachwooderum or plasma anion gap determinationon 28-27-8586Ppyct gap [Moles/Vol]9.3 mmol/LFWhite HospitalBasophils Auto (Bld) [#/Vol]on 83-60-8694Qqwhzixwd (Bld) [#/Vol]0.1 10 3/uL0.0-0.1FWhite HospitalBasophils/100 WBC Auto (Bld)on 34-23-7377Cbraqqcqi/100 WBC (Bld) 1.0 %0.2-2.0[facility] HospitalEosinophils/100 WBC Auto (Bld)on 13-31-6719Bnjyusgovkw/100 WBC (Bld)1.6 %0.9-7.0[facility] Erythrocyte distribution width Auto (RBC) [Ratio]on 12-15-7883Hqcnszjydci distribution width (RBC) [Ratio]17.7 %High11.0-15.0[facility] HospitalEstimated glomerular filtration rate (GFR) non- Americanon 18-06-2693SFP/1.73 sq M.predicted among non-blacks MDRD (S/P/Bld) [Vol rate/Area]31 mL/min/{1.73_m2}Low>=60[facility] HospitalFibrin D- dimer [Presence] in Platelet poor plasma by Latex agglutinationon 12-09-2023 Fibrin D-dimer LA Ql (PPP)3.76 mg/L FEUHigh<=0.59[facility] HospitalComment on above:RESULTS CALLED TO in D-Dimer concentration observed withthromboembolic events can be variable due to localization,size, and age of the thrombus. Therefore, a thromboembolicevent cannot be diagnosed with certainty on the basis of thereference range. D-Dimers may also be elevated fora varietyof disorders including advanced age, , coronarydisease, cancer, liver disease, infection, inflammation,hematoma, DIC, trauma, post-surgery, diabetes, thrombolyticor anticoagulant therapy, stress, and generalizedhospitalization.Globulin Calc (S) [Mass/Vol]on 61-04-2023Lmpdrxqg (S) [Mass/Vol]4.6 g/dLTuscarawas HospitalHematocrit Auto (Bld) [Volume fraction]on 25-58-2454Thtbbluhyj (Bld) [Volume fraction]39.2 %Low 42.0-54.0[facility] HospitalHemoglobin [Mass/volume] in Bloodon 91-41-6755Ytbqontzxu (Bld) [Mass/Vol]12.2 g/dLLow14.0-18.0[facility] HospitalLaboratory - Chemistry and Chemistry - challengeon 12-09-2023 Lactate [Moles/Vol]2.9 mmol/LHigh0.4-2.0[facility] HospitalComment on above:RESULTS CALLED TO MICKY SHARPE RNBilirubin Ql (U)NegativeNEGATIVE [facility] HospitalGlucose (U) [Mass/Vol]500 mg/dLAbnormalNEGATIVE [facility] HospitalKetones Ql (U)NegativeNEGATIVETuscarawas HospitalpH (U)6.5 [pH]5.0-9.0[facility] Specific gravity (U) [Rel density]1.0201.005-1.025[facility] HospitalUrobilinogen Qn (U)0.2 {Brendan'U}/dL0.2-1.0[facility] HospitalAlbumin [Mass/Vol]3.5 g/dL3.4-5.0[facility] HospitalALP [Catalytic activity/Vol]141 U/KIeue62-771AsrsvgdinTuscarawas HospitalALT [Catalytic activity/Vol]13 U/FNwf99-82MjwdebaiyTuscarawas HospitalAST [Catalytic activity/Vol]8 U/JUre20-73RztdodsidTuscarawas HospitalBilirubin [Mass/Vol]0.7 mg/dL0.2-1.0[facility] HospitalCalcium [Mass/Vol]9.6 mg/dL8.5-10.1FWhite HospitalChloride [Moles/Vol]99 mmol/L 98-107[facility] HospitalCO2 [Moles/Vol]21.7 mmol/L21.0-32.0 [facility] HospitalCreatinine [Mass/Vol]2.17 mg/dLHigh0.70-1.30 [facility] HospitalGFR/1.73 sq M.predicted MDRD (S/P/Bld) [Vol rate/Area]38 mL/min/{1.73_m2}Low>=60[facility] HospitalGlucose [Mass/Vol]191 mg/aVIlkd97-378DhssxkziaTuscarawas HospitalMagnesium [Mass/Vol]1.6 mg/dLLow1.8-2.4FWhite HospitalPotassium [Moles/Vol]3.8 mmol/L3.5-5.1FWhite HospitalProtein [Mass/Vol] 8.1 g/dL6.4-8.2FSelect Medical Specialty Hospital - Cincinnati Northodium [Moles/Vol]135 mmol/LLow 136-145[facility] HospitalUrea nitrogen [Mass/Vol]20.0 mg/dLHigh 7.0-18.0[facility] HospitalUrea nitrogen/Creatinine [Mass ratio] 9.2 mg/mgTuscarawas HospitalLaboratory - Hematology and Cell countson 71-71-1886Gkdjbjzp granulocytes/100 WBC (Bld)0.3 %0.0-0.5FWhite HospitalLaboratory - Microbiology and Antimicrobial susceptibilityon 14-19-7089KWKH-CoV-2 (COVID-19) RNA NELLY+probe Ql (Unsp spec) NegativeNEGATIVETuscarawas HospitalComment on above:This test has not been FDA cleared or approved, but has beenauthorized by the FDA under an Emergency Use Authorization(EUA) for use by authorized laboratories certified underIA that meet the requirements to perform moderate or highcomplexity testing. This test has been authorized only forthe detection of proteins from SARS-CoV-2, not for any otherviruses or pathogens. The emergency use of this t est isauthorized for the duration of the declaration thatcircumstances exist justifying the authorization ofemergency use of in vitro diagnostic tests for detectionand/or diagnosis of Covid-19 under section 564(b)(1) of theAct, 21 U.S.C. 360bbb-3(b)(1), unless the declaration isterminated or authorization is revoked sooner.Laboratory - Specimen informationon 74-65-6372Lxrrzydbgq (U)CLEAR CLEARTuscarawas HospitalColor (U)YELLOWYELLOWTuscarawas HospitalLaboratory - Urinalysison 49-53-2822Wkcuhoccu esterase Test strip Ql (U)NegativeNEGATIVETuscarawas HospitalNitrite Ql (U)Negative NEGATIVETuscarawas HospitalProtein Ql (U)NegativeNEG/TRACE [facility] HospitalLeukocytes [#/volume] corrected for nucleated erythrocytes in Blood by Automated counon 25-40-3740XVC corrected for nucl RBC Auto (Bld) [#/Vol]9.3 10 3/uL4.0-11.0[facility] Lymphocytes Auto (Bld) [#/Vol]on 30-16-0095Ezwkifbdpgr (Bld) [#/Vol]1.5 10 3/uL 1.2-3.8[facility] HospitalLymphocytes/100 WBC Auto (Bld)on 33-27-2841Hlbdpbddmnd/100 WBC (Bld)15.7 %Low20.5-60.0[facility] HospitalMCH Auto (RBC) [Entitic mass]on 51-49-9701JUQ (RBC) [Entitic mass]25.6 pg Low25.9-34.0[facility] HospitalMCHC Auto (RBC) [Mass/Vol]on 51-06-5516YHFF (RBC) [Mass/Vol]31.1 g/dL29.9-35.2FWhite HospitalMCV Auto (RBC) [Entitic vol]on 88-13-4173AUZ (RBC) [Entitic vol]82.4 fL 80.0-94.0[facility] HospitalMonocytes Auto (Bld) [#/Vol]on 73-44-9284Owldjxbxe (Bld) [#/Vol]0.9 10 3/uLHigh0.3-0.8[facility] HospitalMonocytes/100 WBC Auto (Bld)on 58-09-2593Nljsdhwko/100 WBC (Bld) 9.1 %1.7-12.0[facility] HospitalNeutrophils Auto (Bld) [#/Vol]on 10-71-4423Rcbrtozxfly (Bld) [#/Vol]6.7 10 3/uLHigh1.4-6.5FWhite HospitalNeutrophils/100 WBC Auto (Bld)on 86-16-9124Txrraavvbfk/100 WBC (Bld)72.3 %43.0-75.0[facility] HospitalNo Panel Informationon 42.9 mmol/LHigh0.4-2.0[facility] HospitalUrine Microscopic ReviewNOTuscarawas HospitalUrine Occult BloodNegative NEGATIVETuscarawas HospitalNegativeNEG/TRACEOrlando Health South Seminole HospitalCLEARCLEARTuscarawas HospitalYELLOWYELLOWTuscarawas Hospital500 mg/dLAbnormal NEGATIVETuscarawas Hospital6.55.0-9.0[facility]1.0201.005-1.025[facility]0.2 EU/dL0.2-1.0[facility] HospitalEosinophils # (Auto)0.2 10 3/uL0.0-0.7FWhite HospitalImmature Granulocyte # (Auto)0.03 10 3/uL0.00-0.03[facility] HospitalTroponin I High Sensitivity8.7 pg/mL4.0-76.1FWhite HospitalComment on above:CUT-OFF POINTS HAVE BEEN ESTABLISHED BASED ON THE FOURTHUNIVERSAL DEFINITION OF MYOCARDIAL INFARCTION. THE UPPERREFERENCE LIMIT (URL) OF TROPONIN, DEFINED THE 99THPERCENTILE OF cTnI DISTRIBUTION IN A REFERENCE POPULATION,HAS BEEN CONFIRMED THE DECISION THRESHOLD FOR MIDIAGNOSIS.99TH PERCENTILE = 76.2 PG/MLNOTE: HIGH-SENSITIVITY TROPONIN ASSAY IS NOT INTENDED TO BEUSED IN ISOLATION BUT SHOULD BE INTERPRETED IN CONJUNCTIONWITH OTHER DIAGNOSTIC AND CLINICAL INFORMATION.8.7 pg/mL4.0-76.1 [facility]1.6 mg/dLLow1.8-2.4FWhite Hospital3.5 g/dL3.4-5.0[facility]0.2 10 3/uL0.0-0.7 [facility]141 U/YEgqx89-076AaiwzfrubTuscarawas Hospital13 U/DFwx09-65AmizouoctT[facility]as Hospital8 U/DQxx53-93HecyzawoeTuscarawas Hospital9.2FWhite Hospital0.03 10 3/uL0.00-0.03 [facility]20.0 mg/dLHigh7.0-18.0[facility]0.3 %0.0-0.5FWhite Hospital9.6 mg/dL8.5-10.1 [facility]99 mmol/Z64-583YgwbsvysaTuscarawas Hospital21.7 mmol/L21.0-32.0[facility]2.17 mg/dLHigh 0.70-1.30[facility]38Low>=60[facility]191 mg/sPMjxp82-707HynzhqshlTuscarawas Hospital3.8 mmol/L3.5-5.1 [facility]135 mmol/CZws303-311MairksdhrTuscarawas Hospital0.7 mg/dL0.2-1.0[facility]8.1 g/dL6.4-8.2FWhite HospitalPlatelet mean volume Auto (Bld) [Entitic vol]on 93-03-2374Zqenypqb mean volume (Bld) [Entitic vol]10.7 fL9.5-13.5FWhite HospitalPlatelets Auto (Bld) [#/Vol]on 31-94-8990Tnzmqyljr (Bld) [#/Vol]294 10 3/dB712-265MugyjobtwTuscarawas HospitalRBC Auto (Bld) [#/Vol] on 18-62-8157BTX (Bld) [#/Vol]4.76 10 6/uL4.70-6.10[facility], Beachwooderum or plasma albumin/globulin mass ratioon 76-30-5742Ojjqmvv/Globulin [Mass ratio]0.8 {ratio}[facility], Beachwooderum or plasma anion gap determinationon 78-92-2645Ucmpq gap [Moles/Vol]18.1 mmol/LFWhite HospitalOutside Operativeon 49-42-7057Vkemraq Operative [id number]#1.00TIFAvita Health SystemPhysician Orderon 41-55-7627Nadarcqxm Order [id number]#1.00TIFAvita Health SystemBasophils Auto (Bld) [#/Vol]on 29-45-2437Tszbkweeu (Bld) [#/Vol]0.1 10 3/uL0.0-0.1FWhite HospitalBasophils/100 WBC Auto (Bld)on 97-55-6210Efsrckdep/100 WBC (Bld)1.1 %0.2-2.0[facility] Eosinophils/100 WBC Auto (Bld)on 50-80-1672Oovapcrovka/100 WBC (Bld)3.5 %0.9-7.0 [facility] HospitalErythrocyte distribution width Auto (RBC) [Ratio]on 04-95-5182Zgejglkpslp distribution width (RBC) [Ratio]20.0 %High 11.0-15.0[facility] HospitalEstimated glomerular filtration rate (GFR) non- Americanon 38-57-4934GIC/1.73 sq M.predicted among non-blacks MDRD (S/P/Bld) [Vol rate/Area]41 mL/min/{1.73_m2}Low>=60[facility] HospitalGlobulin Calc (S) [Mass/Vol]on 25-86-0237Gsvctvce (S) [Mass/Vol] 4.2 g/dLTuscarawas HospitalHematocrit Auto (Bld) [Volume fraction] on 33-92-7402Omguaznpuv (Bld) [Volume fraction]33.1 %Low42.0-54.0[facility] HospitalHemoglobin [Mass/volume] in Bloodon 01-07-8785Pixuxlxadr (Bld) [Mass/Vol]9.8 g/dLLow14.0-18.0[facility] HospitalLaboratory - Chemistry and Chemistry - challengeon 43-48-1450Nfhugxh [Mass/Vol]3.2 g/dLLow 3.4-5.0[facility] HospitalALP [Catalytic activity/Vol]143 U/LHigh 46-116[facility] HospitalALT [Catalytic activity/Vol]16 U/L16-63 [facility]AST [Catalytic activity/Vol]14 U/LFdv14-83 [facility] HospitalBilirubin [Mass/Vol]0.5 mg/dL0.2-1.0[facility] HospitalCalcium [Mass/Vol]9.1 mg/dL8.5-10.1FWhite HospitalChloride [Moles/Vol]101 mmol/T47-854SphdduuhyTuscarawas HospitalCO2 [Moles/Vol]24.2 mmol/L21.0-32.0[facility] Creatinine [Mass/Vol]1.72 mg/dLHigh0.70-1.30[facility] GFR/1.73 sq M.predicted MDRD (S/P/Bld) [Vol rate/Area]50 mL/min/{1.73_m2}Low>=60 [facility] HospitalGlucose [Mass/Vol]132 mg/nMByqt79-301XkbcauzvfTuscarawas HospitalLactate [Moles/Vol]3.6 mmol/LHigh0.4-2.0[facility] HospitalComment on above:RESULTS CALLED TO DR CROOK/ERPotassium [Moles/Vol]3.7 mmol/L3.5-5.1FWhite HospitalProtein [Mass/Vol] 7.4 g/dL6.4-8.2FSelect Medical Specialty Hospital - Cincinnati Northodium [Moles/Vol]138 mmol/L 136-145[facility] HospitalUrea nitrogen [Mass/Vol]26.0 mg/dLHigh 7.0-18.0[facility] HospitalUrea nitrogen/Creatinine [Mass ratio] 15.1 mg/mgTuscarawas HospitalLaboratory - Hematology and Cell countson 94-95-6860FAJ (Bld) [Velocity]96 mm/hHigh<=20[facility] HospitalImmature granulocytes/100 WBC (Bld)0.4 %0.0-0.5FWhite HospitalLeukocytes [#/volume] corrected for nucleated erythrocytes in Blood by Automated counon 50-69-5202MSV corrected for nucl RBC Auto (Bld) [#/Vol]9.1 10 3/uL4.0-11.0[facility] HospitalLymphocytes Auto (Bld) [#/Vol]on 30-32-9593Nehhsketwys (Bld) [#/Vol]2.1 10 3/uL1.2-3.8[facility] HospitalLymphocytes/100 WBC Auto (Bld)on 17-70-6922Yemhwygsmiq/100 WBC (Bld)23.4 % 20.5-60.0[facility] HospitalH Auto (RBC) [Entitic mass]on 00-68-1296VAW (RBC) [Entitic mass]24.8 pgLow25.9-34.0[facility] HospitalMCHC Auto (RBC) [Mass/Vol]on 04-96-6768AKLA (RBC) [Mass/Vol]29.6 g/dLLow 29.9-35.2FWhite HospitalMCV Auto (RBC) [Entitic vol]on 05-15-6108XHY (RBC) [Entitic vol]83.8 fL80.0-94.0[facility] HospitalMonocytes Auto (Bld) [#/Vol]on 69-39-6015Kmuxlchql (Bld) [#/Vol]0.8 10 3/uL0.3-0.8[facility] HospitalMonocytes/100 WBC Auto (Bld)on 82-46-0782Fpwdstmwu/100 WBC (Bld)8.5 %1.7-12.0[facility] Neutrophils Auto (Bld) [#/Vol]on 04-27-6669Hjcrbpzesec (Bld) [#/Vol]5.7 10 3/uL 1.4-6.5FWhite HospitalNeutrophils/100 WBC Auto (Bld)on 30-75-7425Dsofsvyqvfb/100 WBC (Bld)63.1 %43.0-75.0[facility] HospitalNo Panel InformationOrdered By: HERNAN CROOK on 51-45-1512Orwog Culture 2FWhite HospitalBlood Culture 1FWhite HospitalNo Panel Informationon 53-88-0287U-Reactive Protein, Quantitative<0.50 mg/dL<=0.50[facility] HospitalEosinophils # (Auto)0.3 10 3/uL 0.0-0.7FWhite HospitalImmature Granulocyte # (Auto)0.04 10 3/uLHigh0.00-0.03[facility] HospitalPlatelet mean volume Auto (Bld) [Entitic vol]on 59-88-5650Pyjffdlc mean volume (Bld) [Entitic vol]10.4 fL 9.5-13.5FWhite HospitalPlatelets Auto (Bld) [#/Vol]on 57-68-2524Jiwcxxeww (Bld) [#/Vol]371 10 3/iD919-718CyricuzlcTuscarawas HospitalRBC Auto (Bld) [#/Vol]on 73-51-3667OTW (Bld) [#/Vol]3.95 10 6/uLLow 4.70-6.10[facility], Beachwooderum or plasma albumin/globulin mass ratioon 55-14-5221Ulejffz/Globulin [Mass ratio]0.8 {ratio}[facility], Beachwooderum or plasma anion gap determinationon 61-76-9386Mqvfd gap [Moles/Vol]16.5 mmol/LFWhite HospitalProgress Note-Physicianon 31-04-4142Qfiahrsr Note-Physician [id number]#1.00TIFFNormalFisher [facility] Joseph Medical CenterBasophils Auto (Bld) [#/Vol]on 19-40-8253Drszzflan (Bld) [#/Vol]0.1 10 3/uL0.0-0.1FWhite HospitalBasophils/100 WBC Auto (Bld)on 32-94-9782Gksfogmpu/100 WBC (Bld)0.8 %0.2-2.0[facility] Eosinophils/100 WBC Auto (Bld)on 17-37-9114Ishozcnlvur/100 WBC (Bld)5.9 %0.9-7.0 [facility] HospitalErythrocyte distribution width Auto (RBC) [Ratio]on 79-89-9259Zmwhaallajt distribution width (RBC) [Ratio]20.6 %High 11.0-15.0[facility] HospitalEstimated glomerular filtration rate (GFR) non- Americanon 95-35-7431OMP/1.73 sq M.predicted among non-blacks MDRD (S/P/Bld) [Vol rate/Area]44 mL/min/{1.73_m2}Low>=60[facility] HospitalGlobulin Calc (S) [Mass/Vol]on 74-45-2343Bjsiiwuq (S) [Mass/Vol] 4.7 g/dLTuscarawas HospitalHematocrit Auto (Bld) [Volume fraction] on 85-40-8577Kkxjrviwvz (Bld) [Volume fraction]27.6 %Low42.0-54.0[facility] HospitalHemoglobin [Mass/volume] in Bloodon 95-01-9581Dtkvhfrqrn (Bld) [Mass/Vol]8.5 g/dLLow14.0-18.0[facility] HospitalLaboratory - Chemistry and Chemistry - challengeon 98-06-2074Xsuciyp [Mass/Vol]2.4 g/dLLow 3.4-5.0[facility] HospitalALP [Catalytic activity/Vol]194 U/LHigh 46-116[facility] HospitalALT [Catalytic activity/Vol]22 U/L16-63 [facility] HospitalAST [Catalytic activity/Vol]25 U/L15-37 [facility] HospitalBilirubin [Mass/Vol]0.9 mg/dL0.2-1.0[facility] HospitalCalcium [Mass/Vol]8.9 mg/dL8.5-10.1FWhite HospitalChloride [Moles/Vol]97 mmol/GMte78-113ReyheydtdTuscarawas HospitalCO2 [Moles/Vol]26.6 mmol/L21.0-32.0[facility] Creatinine [Mass/Vol]1.63 mg/dLHigh0.70-1.30[facility] GFR/1.73 sq M.predicted MDRD (S/P/Bld) [Vol rate/Area]53 mL/min/{1.73_m2}Low>=60 [facility] HospitalGlucose [Mass/Vol]226 mg/bGNcil29-262InhadzjrvTuscarawas HospitalLactate [Moles/Vol]1.4 mmol/L0.4-2.0[facility] HospitalPotassium [Moles/Vol]4.1 mmol/L3.5-5.1FWhite HospitalProtein [Mass/Vol]7.1 g/dL6.4-8.2FSelect Medical Specialty Hospital - Cincinnati Northodium [Moles/Vol]135 mmol/ZObs938-612FkxfqsybyTuscarawas HospitalUrea nitrogen [Mass/Vol]24.0 mg/dLHigh7.0-18.0[facility] HospitalUrea nitrogen/Creatinine [Mass ratio]14.7 mg/mgTuscarawas Hospital Laboratory - Hematology and Cell countson 36-35-8871Bnmlyywz granulocytes/100 WBC (Bld)0.6 %High0.0-0.5FWhite HospitalLeukocytes [#/volume] corrected for nucleated erythrocytes in Blood by Automated counon 21-39-3530LVB corrected for nucl RBC Auto (Bld) [#/Vol]9.5 10 3/uL4.0-11.0[facility] HospitalLymphocytes Auto (Bld) [#/Vol]on 77-93-4566Xmjimrwjdqi (Bld) [#/Vol]1.3 10 3/uL1.2-3.8[facility] HospitalLymphocytes/100 WBC Auto (Bld)on 46-54-8796Oiwimmfpdjb/100 WBC (Bld)14.1 %Low20.5-60.0[facility] HospitalH Auto (RBC) [Entitic mass]on 31-42-4326GQA (RBC) [Entitic mass]24.9 pgLow25.9-34.0[facility] HospitalMCHC Auto (RBC) [Mass/Vol]on 18-23-6325LWDU (RBC) [Mass/Vol]30.8 g/dL29.9-35.2FWhite HospitalMCV Auto (RBC) [Entitic vol]on 63-22-7212HYJ (RBC) [Entitic vol]80.9 fL80.0-94.0[facility] HospitalMonocytes Auto (Bld) [#/Vol]on 89-59-3501Tjkchtgej (Bld) [#/Vol]1.1 10 3/uLHigh0.3-0.8[facility] HospitalMonocytes/100 WBC Auto (Bld)on 00-74-5323Vllotbszh/100 WBC (Bld)11.9 %1.7-12.0[facility] HospitalNeutrophils Auto (Bld) [#/Vol]on 57-20-4291Zegljgaledq (Bld) [#/Vol]6.4 10 3/uL1.4-6.5FWhite HospitalNeutrophils/100 WBC Auto (Bld)on 11-15-2023 Neutrophils/100 WBC (Bld)66.7 %43.0-75.0[facility] HospitalNo Panel InformationOrdered By: Fely Marker on 59-55-3028Lncja Culture 2 [facility] HospitalBlood Culture 1FWhite HospitalNo Panel Informationon 41-53-7796Nrfzvmhufwn # (Auto)0.6 10 3/uL0.0-0.7 [facility] HospitalImmature Granulocyte # (Auto)0.06 10 3/uLHigh 0.00-0.03T[facility] HospitalPlatelet mean volume Auto (Bld) [Entitic vol]on 20-50-1665Rqsukrdb mean volume (Bld) [Entitic vol]10.8 fL 9.5-13.5FWhite HospitalPlatelets Auto (Bld) [#/Vol]on 16-21-8866Vssydlnde (Bld) [#/Vol]338 10 3/jJ710-940DjpuaheypTuscarawas HospitalRBC Auto (Bld) [#/Vol]on 54-92-9790PEO (Bld) [#/Vol]3.41 10 6/uLLow 4.70-6.10[facility], Beachwooderum or plasma albumin/globulin mass ratioon 93-58-0706Dvzqxol/Globulin [Mass ratio]0.5 {ratio}[facility], Beachwooderum or plasma anion gap determinationon 27-13-0465Bilvg gap [Moles/Vol]15.5 mmol/LFWhite HospitalBASIC METABOLIC PANLon 64-12-6569Nbvft gap [Moles/Vol]10 mmol/LNormal5-15ProOhiohealth Hardin Memorial Hospital Comment on above:Performed By: #### KENDALL MARTÍNEZ, 45978-8, 2777-1 ####[facility] ([id number])[address] [facility], [address] [place] [address] Calcium [Mass/Vol]8.8 mg/dLNormal8.5-10.5PMain Campus Medical CenterComment on above:Performed By: #### CBC, BMP, 58151-6, 2777-1 ####[facility] ([id number])[address] [facility], [address] [address]Mmhvbbsi [Moles/Vol]99 mmol/WFvlzel02-774RgpJpzrpf [place] HospitalComment on above:Performed By: #### KENDALL MARTÍNEZ, , 2776-06 ####[facility] ([id number])[address], [place] [address]QI7 [Moles/Vol]26 mmol/CDlzcye15-00DgtMkxfmc [place] HospitalComment on above:Performed By: #### KENDALL MARTÍNEZ, , 2776-06 ####[facility] ([id number])[address] [address] [address]Bktfzqwtta [Mass/Vol]1.61 mg/dLHigh0.60-1.30[facility] Comment on above:Result Comment: METHOD TRACEABLE TO IDMS STANDARDPerformed By: #### KENDALL MARTÍNEZ, , 2776-06 ####[facility] ([id number])[address] [address] [address]GJK/1.73 sq M.predicted among non-blacks MDRD (S/P/Bld) [Vol rate/Area]49 mL/min/{1.73_m2}Low>59ProOhiohealth Hardin Memorial Hospital Comment on above:Result Comment: Reported eGFR is based on the CKD-EPI 2020 equation that does not use a race coefficient.Performed By: #### KENDALL MARTÍNEZ, , 2776-06 ####[facility] ([id number])[address] [address] [address]Wqhsqky [Mass/Vol]184 mg/vEYstd98-68ZfbIejeeyOhiohealth Hardin Memorial HospitalComment on above:Performed By: #### KENDALL MARTÍNEZ, , 2776-06 ####[facility] ([id number])[address] [address] [address]Nqyaozbbe [Moles/Vol] 4.0 mmol/LNormal3.5-5.0ProGalion Community Hospitalca Ashley HospitalComment on above:Performed By: #### KENDALL MARTÍNEZ, , 2776-06 ####[facility] ([id number])[address], [address] [place] [address]96Ntjgzf [Moles/Vol]135 mmol/KHvbtzg111-815 ProMSamaritan North Health Center HospitalComment on above:Performed By: #### TANYA, KENDALL, , 2776-06 ####[facility] ([id number])[address], [address], [place] [address]Kshu nitrogen [Mass/Vol]23 mg/dLNormal5-23ProGal[facility] Hospitalca Ashley HospitalComment on above:Performed By: #### KENDALL MARTÍNEZ, , 2776-06 ####[facility] ([id number])[address], [address] [place] [address] COMPLETE BLOOD COUNTon 29-68-2490Iimhbpwmdci distribution width (RBC) [Ratio] 22.8 %High11.5-15.0ProGal[facility] Community Hospitalca Ashley HospitalComment on above:Performed By: #### KENDALL MARTÍNEZ, , 2776-06 ####[facility] ([id number])[address] [address] [place] [address] 26898Fvjcwarpbg (Bld) [Volume fraction]25.1 %Low 39-49Pro[facility] Hospitalca Ashley HospitalComment on above:Performed By: #### TANYA, KENDALL, , 2776-06 ####[facility] ([id number])[address] [address] [place] [address]Vfowvgbjfa (Bld) [Mass/Vol]8.1 g/dLLow13.0-17.0 ProMSamaritan [facility] Center HospitalComment on above:Performed By: #### TANYA, KENDALL, , 2776-06 ####[facility] ([id number])[address], [address] [place] [address]315GCW (RBC) [Entitic mass]25.1 szUkl18-99CsnQghesc Marina HospitalComment on above:Performed By: #### TANYA, KENDALL, , 2776-06 ####[facility] ([id number])[address], [address] [place] [address] 629[address]FSRJ (RBC) [Mass/Vol]32.4 g/dZTeokbo68-84PjgRmkvzc Marina HospitalComment on above: Performed By: #### TANYA, KENDALL, , 2776-06 ####[facility] ([id number])[address], [address] [place] [address] 95912ZTC (RBC) [Entitic vol]77 nPVrz65-224MnzLnjihs Marina HospitalComment on above:Performed By: #### TANYA, KENDALL, , 2776-06 ####[facility] ([id number])[address], [address] [place] [address]Rjvrlkhs mean volume (Bld) [Entitic vol]8.8 fL Normal7-12Pro[facility] Marina HospitalComment on above:Performed By: #### TANYA, BMP, , 2776-06 ####[facility] ([id number])[address], [address] [place] [address]Qsfqaeqcm (Bld) [#/Vol]232 10*3/aRKoyldg584-435 [facility] HospitalComment on above:Performed By: #### TANYA, BMP, , 2776-06 ####[facility] ([id number])[address], [address] [place] [address] 14041OBM COUNT3.25 X10E12/LLow4.10-5.70[facility] Comment on above:Performed By: #### TANYA, BMP, , 2776-06 ####[facility] ([id number])[address], [address] [place] [address] 05689WHN (Bld) [#/Vol]8.4 10*3/uLNormal4.0-11.0Pro[facility] Marina HospitalComment on above: Performed By: #### KENDALL MARTÍNEZ, , 277-1 ####[facility] ([id number])[address], [address] [place] [address]Qbamvko Glucometer (BldC) [Mass/Vol]on 12-53-5826Riklfnc [Mass/Vol]173 mg/nBYdtx26-12MqjJbyeao Marina HospitalGlucose [Mass/Vol]279 mg/yXIykb61-76LlpAmbmuu Marina HospitalGlucose [Mass/Vol]249 mg/vKOkzn40-06GsrGnwfpm Marina HospitalMAGNESIUMon 11-14-2023 Magnesium [Mass/Vol]2.1 mg/dLNormal1.8-2.6Pro[facility] Marina HospitalComment on above:Performed By: #### 98152-6 ####[facility] ([id number])[address], [address] [place] [address] 44752Kspzjvbjb [Mass/Vol]mg/dL Critically low1.8-2.6Pro[facility] Marina HospitalComment on above:Performed By: #### 49430-0 ####[facility] ([id number])[address], [address], [place] [address]Keflndyjr [Mass/Vol]1.7 mg/dLLow1.8-2.6ProMedica Marina HospitalComment on above:Performed By: #### TANYA, KENDALL, , 2771 ####[facility] ([id number])[address], [address] [address] PHOSPHORUSon 68-10-1145Edodfrlaj [Mass/Vol]3.6 mg/dLNormal2.4-4.9[facility] HospitalComment on above:Performed By: #### TANYA, KENDALL, , 2776-06 ####[facility] ([id number])[address], [address], [place] [address]WXLOU METABOLIC PANLon 87-46-2551Hxizf gap [Moles/Vol]10 mmol/LNormal5-15 [facility] HospitalComment on above:Performed By: #### TANYA, KENDALL, , 2776-06 ####[facility] ([id number])[address], [address], [place] [address]Nlbaxtf [Mass/Vol]8.9 mg/dLNormal8.5-10.5[facility] HospitalComment on above:Performed By: #### KENDALL MARTÍNEZ, , 2776-06 ####[facility] ([id number])[address], [address], [place] [address] Chloride [Moles/Vol]98 mmol/ETbedvr95-145MiaBodsjx Marina HospitalComment on above:Performed By: #### TANYA, KENDALL, , 2776-06 ####[facility] ([id number])[address], [address], [place] [address]EN4 [Moles/Vol]27 mmol/JEndhue49-33OboHgptuh Marina HospitalComment on above:Performed By: #### TANYA, KENDALL, , 2776-06 ####[facility] ([id number])[address], [address], [place] [address]Btsxjsbite [Mass/Vol]1.47 mg/dLHigh0.60-1.30 [facility] HospitalComment on above:Result Comment: METHOD TRACEABLE TO IDMS STANDARDPerformed By: #### KENDALL MARTÍNEZ, , 2776-06 ####[facility] ([id number])[address], [address], [place] [address]RCB/1.73 sq M.predicted among non-blacks MDRD (S/P/Bld) [Vol rate/Area]55 mL/min/{1.73_m2} Low>59ProGal[facility] Hospitalca [facility] HospitalComment on above:Result Comment: Reported eGFR is based on the CKD-EPI 2020 equation that does not use a race coefficient.Performed By: #### KENDALL MARTÍNEZ, , 2776-06 ####[facility] ([id number])[address] [address], [place] [address]Orxtgot [Mass/Vol]164 mg/aSNyfc25-50VblTlgicv [place] HospitalComment on above:Performed By: #### KENDALL MARTÍNEZ, , 2776-06 ####[facility] ([id number])[address] [address]Zaulrlimv [Moles/Vol] 3.8 mmol/LNormal3.5-5.0[facility] HospitalComment on above:Performed By: #### KENDALL MARTÍNEZ, , 2776-06 ####[facility] ([id number])[address] [address]Ssdqut [Moles/Vol]135 mmol/HLzbpbx663-407 [facility] HospitalComment on above:Performed By: #### KENDALL MARTÍNEZ, , 2776-06 ####[facility] ([id number])[address] [address]Nmxw nitrogen [Mass/Vol]26 mg/dLHigh5-23[facility] HospitalComment on above:Performed By: #### KENDALL MARTÍNEZ, , 2776-06 ####[facility] ([id number])[address] [address] COMPLETE BLOOD COUNTon 49-35-7430Mtziyahjeaj distribution width (RBC) [Ratio] 23.2 %High11.5-15.0[facility] HospitalComment on above:Performed By: #### TANYA, BMP, , 2776-06 ####[facility] ([id number])[address], [address], [place] [address]Naglbjflvz (Bld) [Volume fraction]24.7 %Low 39-49Pro[facility] HospitalComment on above:Performed By: #### CBC, BMP, , 2776-06 ####[facility] ([id number])[address], [address], [place] [address]Wmjfrvprpn (Bld) [Mass/Vol]8.2 g/dLLow13.0-17.0 [facility] HospitalComment on above:Performed By: #### TANYA, BMP, , 2776-06 ####[facility] ([id number])[address], [address], [place] [address]OGS (RBC) [Entitic mass]25.7 maVha28-72YagOewixj Marina HospitalComment on above:Performed By: #### TANYA, BMP, , 2776-06 ####[facility] ([id number])[address], [address], [place] [address]YURS (RBC) [Mass/Vol]33.4 g/eSXtvijv23-45NvqSpbibj [facility] HospitalComment on above: Performed By: #### CBC, BMP, , 2776-06 ####[facility] ([id number])[address], [address], [place] [address]ZDR (RBC) [Entitic vol]77 tXQpn36-186LvnBwabng [facility] HospitalComment on above:Performed By: #### CBC, BMP, , 2776-06 ####[facility] ([id number])[address], [address], [place] [address]Dqkvhnit mean volume (Bld) [Entitic vol]8.8 fL Normal7-12[facility] HospitalComment on above:Performed By: #### TANYA, KENDALL, , 2776-06 ####[facility] ([id number])[address], [address] [place] [address]Itoupfkzq (Bld) [#/Vol]207 10*3/bIGrkkik840-535 [facility] HospitalComment on above:Performed By: #### TANYA, KENDALL, , 2776-06 ####[facility] ([id number])[address], [address] [place] [address]OCH COUNT3.21 X10E12/LLow4.10-5.70[facility] Comment on above:Performed By: #### KENDALL MARTÍNEZ, , 2776-06 ####[facility] ([id number])[address], [address] [place] [address]NDE (Bld) [#/Vol]8.1 10*3/uLNormal4.0-11.0[facility] HospitalComment on above: Performed By: #### TANYA, KENDALL, , 2776-06 ####[facility] ([id number])[address], [address] [place] [address]Rgnaefv Glucometer (BldC) [Mass/Vol]on 70-39-6130Cipptfw [Mass/Vol]230 mg/dPAbbp33-64JdkMdvedi [facility] HospitalGlucose [Mass/Vol]225 mg/tYDkea61-83UneGtoxxc [facility] HospitalGlucose [Mass/Vol]331 mg/jOKcuq15-61ZdaJpzrnd [facility] HospitalGlucose [Mass/Vol]190 mg/dL Enpz58-49JozOaidnr [facility] HospitalMAGNESIUMon 32-99-8085Fgiqvxjss [Mass/Vol]2.1 mg/dLNormal1.8-2.6[facility] HospitalComment on above:Performed By: #### TANYA, BMP, [address]-5, 2777-1 ####[facility] ([id number])[address], [address], [place] [address]EOALXUUVAWnb 68-45-0725Xygvjtpzl [Mass/Vol] 3.8 mg/dLNormal2.4-4.9[facility] HospitalComment on above:Performed By: #### TANYA, BMP, , 2777- ####[facility] ([id number])[address], [address], [place] [address]HRYBY METABOLIC PANLon 16-81-7302Dbplf gap [Moles/Vol]11 mmol/LNormal5-15[facility] HospitalComment on above: Performed By: #### TANYA, BMP #### [facility] ([id number]) [address], [address] [place], [place] [address]Xanrkmo [Mass/Vol]9.0 mg/dLNormal8.5-10.5[facility] HospitalComment on above:Performed By: #### TANYA, BMP #### [facility] ([id number]) [address], [address] [place], [place] [address]Akcamwie [Moles/Vol]98 mmol/QJpttym68-196IizRhnezl [facility] HospitalComment on above:Performed By: #### TANYA, BMP #### [facility] ([id number]) [address], [address] [place], [place] [address]JA4 [Moles/Vol]25 mmol/XQrpxww11-52RgyRzvbmh [facility] Comment on above:Performed By: #### TAYNA, BMP #### [facility] ([id number]) [address], [address] [place], [place] [address]Vpfscqxzyx [Mass/Vol]1.40 mg/dLHigh0.60-1.30[facility] HospitalComment on above:Result Comment: METHOD TRACEABLE TO IDMS STANDARD Performed By: #### TANYA, BMP #### [facility] ([id number]) [address] [address] [place], [place] [address]VXP/1.73 sq M.predicted among non-blacks MDRD (S/P/Bld) [Vol rate/Area]58 mL/min/{1.73_m2}Low>59[facility] HospitalComment on above: Result Comment: Reported eGFR is based on the CKD-EPI 2020 equation that does not use a race coefficient.Performed By: #### TANYA, BMP #### [facility] ([id number]) [address] [address] [place], [place] [address]Wuljcei [Mass/Vol]194 mg/cPQcgb37-73BgnYtcryw [facility] Comment on above:Performed By: #### TANYA, BMP #### [facility] ([id number]) [address] [address] [place], [place] [address]Ulxqutala [Moles/Vol]4.0 mmol/LNormal3.5-5.0[facility] HospitalComment on above:Performed By: #### TANYA, BMP #### [facility] ([id number]) [address], [address] [place], [place] [address]Cgsdhj [Moles/Vol]134 mmol/ZAojhqi616-276SblHgmtut [place] HospitalComment on above:Performed By: #### CBC, BMP #### [facility] ([id number]) [address] [address] [place], [place] [address]Ixpx nitrogen [Mass/Vol]23 mg/dLNormal5-23[facility] HospitalComment on above:Performed By: #### CBC, BMP #### [facility] ([id number]) [address] [address] [place], [place] [address]SURQTFVF BLOOD COUNTon 36-19-0163Ctxtbtwaxjk distribution width (RBC) [Ratio]24.1 %High11.5-15.0Pro[facility] Hospitalca [facility] HospitalComment on above: Performed By: #### CBC, BMP #### [facility] ([id number]) [address], [address] [place], [place] [address]Zmzeeucebw (Bld) [Volume fraction]25.8 %Hfd15-80DghRzdnuj [place] HospitalComment on above:Performed By: #### CBC, BMP #### [facility] ([id number]) [address], [address] [place], [place] [address]Cihutbnott (Bld) [Mass/Vol]8.6 g/dLLow13.0-17.0[facility] HospitalComment on above:Performed By: #### CBC, BMP #### [facility] ([id number]) [address], [address] [place], [place] [address]UKI (RBC) [Entitic mass]25.7 nuEiz90-26JjxApdzlzDoctors Hospital Comment on above:Performed By: #### CBC, BMP #### [facility] ([id number]) [address], [address] [place], [place] [address]LMSY (RBC) [Mass/Vol]33.5 g/tBMywwzq10-28QnhQakxqf [place] HospitalComment on above:Performed By: #### CBC, BMP #### [facility] ([id number]) [address], [address] [place], [place] [address]EFB (RBC) [Entitic vol]77 lZRiy83-374MqzUwyxibDoctors Hospital Comment on above:Performed By: #### CBC, BMP #### [facility] ([id number]) [address], [address] [place], [place] [address]Urtubqny mean volume (Bld) [Entitic vol]9.2 fLNormal7-12 [facility] HospitalComment on above:Performed By: #### CBC, BMP #### [facility] ([id number]) [address], [address] [place], [place] [address]Nuovrvfgw (Bld) [#/Vol]185 10*3/wAFjioig392-364WkiIeapfi [place] HospitalComment on above:Performed By: #### CBC, BMP #### [facility] ([id number]) [address] [address] [place] [address]MBR COUNT3.37 X10E12/LLow4.10-5.70[facility] Comment on above:Performed By: #### CBC, BMP #### [facility] ([id number]) [address] [facility], [address] [place], [place] [address]GJK (Bld) [#/Vol]10.0 10*3/uLNormal4.0-11.0Pro[facility] HospitalComment on above:Performed By: #### CBC, BMP #### [facility] ([id number]) [address], [address] [place] [address]Vdxrlnh Glucometer (BldC) [Mass/Vol]on 28-45-2055Gqyqjyr [Mass/Vol]230 mg/hCVqlj16-60WizZieoke [place] HospitalGlucose [Mass/Vol]280 mg/dL Sxqw25-03CntWqiwvq [place] HospitalGlucose [Mass/Vol]268 mg/oMZijy91-16LcgYptrow [place] HospitalGlucose [Mass/Vol]220 mg/tQGoym95-85PkiCudnqi [facility] Glucose [Mass/Vol]205 mg/mPUycp21-05QjoIhhtgr [place] HospitalMAGNESIUMon 02-47-7968Injnodkrh [Mass/Vol]1.8 mg/dLNormal1.8-2.6[facility] Comment on above:Performed By: #### CBC, BMP #### [facility] ([id number]) [address], [address] [place], [place] [address]KBLSJUUDWSlc 43-56-25[address]Xegfaxlef [Mass/Vol]3.8 mg/dLNormal 2.4-4.9[facility] HospitalComment on above:Performed By: #### TANYA, BMP #### [facility] ([id number]) [address], [address] [place], [place] [address]LBPRH METABOLIC PANLon 35-45-4202Vuhfw gap [Moles/Vol]8 mmol/L Normal5-15[facility] HospitalComment on above:Performed By: #### CBC, BMP #### [facility] ([id number]) [address], [address] [place], [place] [address]Umncztw [Mass/Vol]8.7 mg/dLNormal8.5-10.5[facility] HospitalComment on above:Performed By: #### TANYA, BMP #### [facility] ([id number]) [address], [address] [place], [place] [address]Aouhcwpa [Moles/Vol]99 mmol/HLyqwgl32-256JbvHpbzat [place] HospitalComment on above:Performed By: #### TANYA, BMP #### [facility] ([id number]) [address], [address] [place], [place] [address]PA4 [Moles/Vol]26 mmol/GXatwhq68-01KzfJotlhf [facility] Comment on above:Performed By: #### CBC, BMP #### [facility] ([id number]) [address], [address] [place], [place] [address]Cdevunvogr [Mass/Vol]1.45 mg/dLHigh0.60-1.30Pro[facility] Hospitalca [facility] HospitalComment on above:Result Comment: METHOD TRACEABLE TO IDMS STANDARD Performed By: #### CBC, BMP #### [facility] ([id number]) [address], [address] [place], [place] [address]NGV/1.73 sq M.predicted among non-blacks MDRD (S/P/Bld) [Vol rate/Area]56 mL/min/{1.73_m2}Low>59[facility] HospitalComment on above: Result Comment: Reported eGFR is based on the CKD-EPI 2020 equation that does not use a race coefficient.Performed By: #### TANYA, BMP #### [facility] ([id number]) [address], [address] [place], [place] [address]Dypsxvk [Mass/Vol]153 mg/bHTdep64-23KukHacvbwDoctors Hospital Comment on above:Performed By: #### CBC, BMP #### [facility] ([id number]) [address] [address]Cajyiuzxw [Moles/Vol]3.9 mmol/LNormal3.5-5.0[facility] HospitalComment on above:Performed By: #### CBC, BMP #### [facility] ([id number]) [address], [address] [place], [place] [address]Amfrwp [Moles/Vol]133 mmol/KZfl311-407BqaImjgjvDoctors Hospital Comment on above:Performed By: #### CBC, BMP #### [facility] ([id number]) [address] [address]Zsnp nitrogen [Mass/Vol]27 mg/dLHigh5-23[facility] HospitalComment on above:Performed By: #### CBC, BMP #### [facility] ([id number]) [address] [address]VZSYJBXX BLOOD COUNTon 40-74-7782Amatezushis distribution width (RBC) [Ratio]24.2 %High11.5-15.0[facility] HospitalComment on above: Performed By: #### CBC, BMP #### [facility] ([id number]) [address] [address]Xetdwyhpna (Bld) [Volume fraction]25.1 %Vnx98-39EcfJhusrn [place] HospitalComment on above:Performed By: #### CBC, BMP #### [facility] ([id number]) [address], [address] [place], [place] [address]Qdrccnswph (Bld) [Mass/Vol]8.2 g/dLLow13.0-17.0Doctors HospitalComment on above:Performed By: #### CBC, BMP #### [facility] ([id number]) [address], [address] [place], [place] [address]VHB (RBC) [Entitic mass]25.5 ezSqi66-86CslXwojuyDoctors Hospital Comment on above:Performed By: #### CBC, BMP #### [facility] ([id number]) [address], [address] [place], [place] [address]SEGD (RBC) [Mass/Vol]32.7 g/iTPvqdwv21-43EzbZnoznm [place] HospitalComment on above:Performed By: #### CBC, BMP #### [facility] ([id number]) [address], [address] [place], [place] [address]TQE (RBC) [Entitic vol]78 pDIdt76-159HhjBewoqzDoctors Hospital Comment on above:Performed By: #### CBC, BMP #### [facility] ([id number]) [address], [address] [place], [place] [address]Ytimzxvr mean volume (Bld) [Entitic vol]9.0 fLNormal7-12 [facility]MS[facility] HospitalComment on above:Performed By: #### CBC, BMP #### [facility] ([id number]) [address], [address] [place], [place] [address]Krgnttnfn (Bld) [#/Vol]152 10*3/eCPgryah702-065GprVgeifr [place] HospitalComment on above:Performed By: #### CBC, BMP #### [facility] ([id number]) [address], [address] [place], [place] [address]KOT COUNT3.22 X10E12/LLow4.10-5.70[facility] Comment on above:Performed By: #### TANYA, BMP #### [facility] ([id number]) [address], [address] [place], [place] [address]HJJ (Bld) [#/Vol]9.8 10*3/uLNormal4.0-11.0[facility] HospitalComment on above:Performed By: #### CBC, BMP #### [facility] ([id number]) [address], [address] [place], [place] [address]Ktwrajh Glucometer (BldC) [Mass/Vol]on 38-56-5217Vrkwlcg [Mass/Vol]184 mg/oKGpej64-66SdqMwpcdr [place] HospitalGlucose [Mass/Vol]179 mg/dL Eldf81-80AqwOkdlrw [place] HospitalGlucose [Mass/Vol]222 mg/cWArwr83-05VpwWqkiud [facility] HospitalGlucose [Mass/Vol]303 mg/tWLhnx62-69NjvOifkyf [facility] MAGNESIUMon 82-54-6556Kimrqgmqj [Mass/Vol]2.4 mg/dLNormal1.8-2.6[facility] HospitalComment on above:Performed By: #### CBC, BMP #### [facility] ([id number]) [address], [address] [place], [place] [address]Gvghfeicc [Mass/Vol]1.9 mg/dLNormal1.8-2.6[facility] HospitalComment on above:Performed By: #### CBC, BMP #### [facility] ([id number]) [address], [address] [place], [place] [address]LVOQNBLFXQrn 95-53-0502Zvqevfnrf [Mass/Vol]3.2 mg/dLNormal 2.4-4.9[facility] HospitalComment on above:Performed By: #### CBC, BMP #### [facility] ([id number]) [address], [address] [place], [place] [address]ZFQXN METABOLIC PANLon 73-82-7332Alyxq gap [Moles/Vol]6 mmol/L Normal5-15[facility] HospitalComment on above:Performed By: #### KENDALL MARTÍNEZ, , 2776-06 ####[facility] ([id number])[address], [address] [place] [address]Mizxwwt [Mass/Vol]8.5 mg/dLNormal8.5-10.5[facility] HospitalComment on above:Performed By: #### KENDALL MARTÍNEZ, , 2776-06 ####[facility] ([id number])[address], [address] [address]Tjbpusjg [Moles/Vol]102 mmol/BWaemej31-837TpzIxayrw [facility] HospitalComment on above:Performed By: #### KENDALL MARTÍNEZ, , 2776-06 ####[facility] ([id number])[address], [address] [address]CS1 [Moles/Vol] 26 mmol/OQdzktb38-81CxeCarxzr [place] HospitalComment on above:Performed By: #### KENDALL MARTÍNEZ, , 2776-06 ####[facility] ([id number])[address] [address], [place] [address]Kavxzlnjkv [Mass/Vol]1.59 mg/dLHigh0.60-1.30 [facility] HospitalComment on above:Result Comment: METHOD TRACEABLE TO IDMS STANDARDPerformed By: #### KENDALL MARTÍNEZ, , 2776-06 ####[facility] ([id number])[address] [address] [place] [address]CRV/1.73 sq M.predicted among non-blacks MDRD (S/P/Bld) [Vol rate/Area]50 mL/min/{1.73_m2} Low>59[facility] HospitalComment on above:Result Comment: Reported eGFR is based on the CKD-EPI 2020 equation that does not use a race coefficient.Performed By: #### KENDALL MARTÍNEZ, , 2776-06 ####[facility] ([id number])[address] [address], [place] [address]Lzwkvbn [Mass/Vol]145 mg/wHZqfv70-71PatJwzkcj [place] HospitalComment on above:Performed By: #### KENDALL MARTÍNEZ, , 2776-06 ####[facility] ([id number])[address] [address], [place] [address]Japxlypzt [Moles/Vol] 3.9 mmol/LNormal3.5-5.0[facility] HospitalComment on above:Performed By: #### KENDALL MARTÍNEZ, , 2776-06 ####[facility] ([id number])[address] [address], [place] [address]Rbiopz [Moles/Vol]134 mmol/SKgqvcd152-961 [facility] HospitalComment on above:Performed By: #### KENDALL MARTÍNEZ, , 2776-06 ####[facility] ([id number])[address] [address]Vhjp nitrogen [Mass/Vol]23 mg/dLNormal5-23[facility] HospitalComment on above:Performed By: #### KENDALL MARTÍNEZ, , 2776-06 ####[facility] ([id number])[address] [address] COMPLETE BLOOD COUNTon 00-17-7550Hnodlkkueal distribution width (RBC) [Ratio] 24.9 %High11.5-15.0[facility] HospitalComment on above:Performed By: #### KENDALL MARTÍNEZ, , 2776-06 ####[facility] ([id number])[address], [address], [place] [address]Ggkldcmhyt (Bld) [Volume fraction]24.5 %Low 39-49[facility] HospitalComment on above:Performed By: #### TANYA, BMP, , 2776-06 ####[facility] ([id number])[address], [address], [place] [address]Xbschmneak (Bld) [Mass/Vol]7.9 g/dLLow13.0-17.0 [facility] HospitalComment on above:Performed By: #### TANYA, BMP, , 2776-06 ####[facility] ([id number])[address], [address], [place] [address]BRS (RBC) [Entitic mass]25.4 apTod40-44OdnUdbgcp [facility] HospitalComment on above:Performed By: #### TANYA, BMP, , 2776-06 ####[facility] ([id number])[address], [address] [place] [address]LHLT (RBC) [Mass/Vol]32.4 g/nEGpcemi00-74ZikWoasiy [facility] HospitalComment on above: Performed By: #### TANYA, BMP, , 2776-06 ####[facility] ([id number])[address], [address] [place] [address]IDJ (RBC) [Entitic vol]78 wXEaw08-697IntQghqkc [facility] HospitalComment on above:Performed By: #### CBC, BMP, , 2776-06 ####[facility] ([id number])[address], [place] [address]Gweqdkof mean volume (Bld) [Entitic vol]9.1 fL Normal7-12[facility] HospitalComment on above:Performed By: #### TANYA, KENDALL, , 2776-06 ####[facility] ([id number])[address], [address] [place] [address]Oimyillyo (Bld) [#/Vol]142 10*3/vEStg179-677InyFgpjkd Marina HospitalComment on above:Performed By: #### TANYA, KENDALL, , 2776-06 ####[facility] ([id number])[address], [address] [place] [address]APQ COUNT3.14 X10E12/LLow4.10-5.70[facility] HospitalComment on above:Performed By: #### KENDALL MARTÍNEZ, , 2776-06 ####[facility] ([id number])[address], [address] [place] [address]AMP (Bld) [#/Vol]9.7 10*3/uLNormal4.0-11.0[facility] HospitalComment on above:Performed By: #### KENDALL MARTÍNEZ, , 2776-06 ####[facility] ([id number])[address], [address] [place] [address]Zinslra Glucometer (BldC) [Mass/Vol]on 86-25-1384Qfooegl [Mass/Vol]168 mg/jJXczk41-38UppOvaljm [facility] HospitalGlucose [Mass/Vol]245 mg/kFRllv70-89YixIhgisf [facility] HospitalGlucose [Mass/Vol]155 mg/dL Vwdg72-12MhrJbrmbg [facility] HospitalGlucose [Mass/Vol]153 mg/iOYoxh68-19KuwBuuvyx [facility] HospitalMAGNESIUMon 31-13-8805Mrfnykilf [Mass/Vol]2.2 mg/dLNormal1.8-2.6 [facility] HospitalComment on above:Performed By: #### TANYA, BMP #### [facility] ([id number]) [address], [address] [place], [place] [address]Ejhkoeoxp [Mass/Vol]1.8 mg/dLNormal1.8-2.6[facility] Marina HospitalComment on above:Performed By: #### CBC, BMP, , 2776-06 ####[facility] ([id number])[address], [address], [place] [address] PHOSPHORUSon 25-19-9179Thvbqlskx [Mass/Vol]3.1 mg/dLNormal2.4-4.9[facility] HospitalComment on above:Performed By: #### CBC, BMP, , 2776-06 ####[facility] ([id number])[address], [address], [place] [address]VVSVG METABOLIC PANLon 61-65-3342Hxaqa gap [Moles/Vol]9 mmol/LNormal5-15 [facility] HospitalComment on above:Performed By: #### CBC, 2639-3, BMP, 2156-11, , 2776-06 ####[facility] ([id number])[address], [address], [place] [address]Owrpfng [Mass/Vol]8.4 mg/dLLow8.5-10.5 [facility] HospitalComment on above:Performed By: #### CBC, 2639-3, BMP, 2156-11, , 2776-06 ####[facility] ([id number])[address], [address], [place] [address]Wnearbny [Moles/Vol]104 mmol/XAvzecy39-838 [facility] HospitalComment on above:Performed By: #### CBC, 2639-3, BMP, 2156-11, , 2776-06 ####[facility] ([id number])[address], [address], [place] [address]HT7 [Moles/Vol]25 mmol/PLawvkj08-06KhlTrgarjMain Campus Medical CenterComment on above:Performed By: #### TANYA, 2639-3, BMP, 2156-11, , 2776-06 ####[facility] ([id number])[address], [address], [place] [address]Xckqttrgsx [Mass/Vol]1.35 mg/dLHigh0.60-1.30Doctors HospitalComment on above:Result Comment: METHOD TRACEABLE TO IDMS STANDARDPerformed By: #### TANYA, 2639-3, BMP, 2156-11, , 2776-06 ####[facility] ([id number])[address], [address], [place] [address] GFR/1.73 sq M.predicted among non-blacks MDRD (S/P/Bld) [Vol rate/Area]61 mL/min/{1.73_m2}Normal>59ProOhiohealth Hardin Memorial HospitalComment on above:Result Comment: Reported eGFR is based on the CKD-EPI 2020 equation that does not use a race coefficient.Performed By: #### TANYA, 2639-3, BMP, 2156-11, , 2776-06 ####[facility] ([id number])[address] [address], [place] [address]Gvljorf [Mass/Vol]217 mg/dONcyk94-80GnlPuhbwgDoctors Hospital Comment on above:Performed By: #### TANYA, 2639-3, BMP, 2156-11, , 2776-06 ####[facility] ([id number])[address] [address], [place] [address]Ximswcnes [Moles/Vol]4.2 mmol/LNormal3.5-5.0[facility] Comment on above:Performed By: #### TANYA, 2639-3, BMP, 2156-11, , 2776-06 ####[facility] ([id number])[address], [address], [place] [address]Clxocq [Moles/Vol]138 mmol/RLyqbnd475-435HhbVepkqc Ashley HospitalComment on above:Performed By: #### CBC, 2639-3, BMP, 2156-11, , 2776-06 ####[facility] ([id number])[address], [address], [place] [address]Sefn nitrogen [Mass/Vol]23 mg/dLNormal5-23ProGalion Community Hospitalca Ashley HospitalComment on above: Performed By: #### CBC, 2639-3, BMP, 2156-11, , 2776-06 ####[facility] ([id number])[address], [address], [place] [address]GE [Catalytic activity/Vol]on 54-28-0462RTA69 U/FHiwcec72-319RxsHyfqee [place] HospitalComment on above:Performed By: #### 2157-6, 2638-3 ####[facility] ([id number])[address] [address], [place] [address]JQX93 U/HQuzcws96-673 [facility] HospitalComment on above:Performed By: #### CBC, 2639-3, BMP, 2156-11, , 2776-06 ####[facility] ([id number])[address] [address] [place] [address]IVCFGITW BLOOD COUNTon 11-80-0950Nmdwarodpow distribution width (RBC) [Ratio]24.9 %High11.5-15.0ProOhiohealth [facility]in [facility] Comment on above:Performed By: #### CBC, 2639-3, BMP, 2156-11, , 2776-06 ####[facility] ([id number])[address] [address] [address]Ibvnblrrjh (Bld) [Volume fraction]26.8 %Tfa28-01XlgAitktjDoctors Hospital Comment on above:Performed By: #### CBC, 2639-3, BMP, 2156-11, , 2776-06 ####[facility] ([id number])[address], [address] [place] [address]Maxzxnnmyf (Bld) [Mass/Vol]8.7 g/dLLow13.0-17.0[facility] Comment on above:Performed By: #### CBC, 2639-3, BMP, 2156-11, , 2776-06 ####[facility] ([id number])[address], [address] [place] [address]BLS (RBC) [Entitic mass]24.8 gdHaw06-57DqnVlciepOhiohealth Hardin Memorial HospitalComment on above:Performed By: #### CBC, 2639-3, BMP, 2156-11, , 2776-06 ####[facility] ([id number])[address], [address] [place] [address]HOQM (RBC) [Mass/Vol]32.6 g/hNAgqctg08-44LacUobemrDoctors HospitalComment on above: Performed By: #### CBC, 2639-3, BMP, 2156-11, , 2776-06 ####[facility] ([id number])[address], [address] [place] [address]JUO (RBC) [Entitic vol]76 aYKof05-486RkcHcktyiOhiohealth Hardin Memorial HospitalComment on above:Performed By: #### CBC, 2639-3, BMP, 2156-11, , 2776-06 ####[facility] ([id number])[address], [address] [place] [address]Rviuyjyd mean volume (Bld) [Entitic vol]9.3 fLNormal7-12PDoctors Hospitalo HospitalComment on above: Performed By: #### CBC, 2639-3, BMP, 2156-6, 07536-2, 2776- ####[facility] ([id number])[address], [address] [place] [address]Dywvmpqaj (Bld) [#/Vol]184 10*3/wMItuokk188-319CkmHhhnqo Marina HospitalComment on above: Performed By: #### CBC, 2639-3, BMP, 2156-6, 32290-7, 2776- ####[facility] ([id number])[address], [address] [place] [address]BHW COUNT3.53 X10E12/LLow4.10-5.70ProGal[facility] Community Hospitalca [facility] HospitalComment on above:Performed By: #### CBC, 2639-3, BMP, 2156-, , 2776- ####[facility] ([id number])[address], [address] [place] [address]IIW (Bld) [#/Vol]11.0 10*3/uLNormal4.0-11.0ProGal[facility] Hospitalca [facility] HospitalComment on above:Performed By: #### CBC, 2639-3, BMP, 2156-6, 67927-8, 2776-1 ####[facility] ([id number])[address], [address] [place] [address]Zhhpojy Glucometer (BldC) [Mass/Vol]on 69-35-6978Mvtgkum [Mass/Vol]243 mg/dCFikw40-44LwlSdgnwo [facility] HospitalGlucose [Mass/Vol]184 mg/sBKhmi99-88GfrFylzuy [facility] HospitalGlucose [Mass/Vol]199 mg/dBFwdc13-01VktBradmu [facility] HospitalGlucose [Mass/Vol]218 mg/dL Dwlq34-65YoqXayxou [facility] HospitalHeparin unfractionated Chromogenic method Qn (PPP)on 35-60-9566YRUX XA UFH0.15 IU/mLLow0.30-0.70[facility] Comment on above:Result Comment: Optimal time for testing is 6 hrs post dosage This test is specific for monitoring patients on UFH, and is not recommended for use with other Anti-Xa medications.Performed By: #### 3274-8 ####[facility] ([id number])[address], [address], [place] [address]QRRDVOCDWtc 11-09-2023 Magnesium [Mass/Vol]2.2 mg/dLNormal1.8-2.6ProOhiohealth Hardin Memorial HospitalComment on above:Performed By: #### TANYA, 2639-3, BMP, 2156-11, , 7-1 ####[facility] ([id number])[address], [address], [place] [address] Myoglobin [Mass/Vol]on 79-67-0740CUUWJ UBRRYKFYP89.7 ng/ySXhjboy28.4-105.7 Doctors HospitalComment on above:Performed By: #### 2157-6, 9-3 ####[facility] ([id number])[address], [address], [place] [address]VHXEO SMDHUWYCV81.7 ng/dGBtviwh15.4-105.7Doctors HospitalComment on above:Performed By: #### CBC, 2639-3, BMP, 2156-11, , 2776-1 ####[facility] ([id number])[address], [address] [address] PHOSPHORUSon 85-28-4941Bxenclyso [Mass/Vol]4.4 mg/dLNormal2.4-4.9ProOhiohealth Hardin Memorial HospitalComment on above:Performed By: #### TANYA, 2639-3, BMP, 2156-11, , 7-1 ####[facility] ([id number])[address], [address], [place] [address]KKKYN METABOLIC PANLon 38-04-1742Adfwi gap [Moles/Vol]9 mmol/LNormal5-15ProOhiohealth Hardin Memorial HospitalComment on above:Performed By: #### PINR #### [facility] ([id number]) [address], [address] [place], [place] [address]Ayfwgee [Mass/Vol]8.4 mg/dLLow8.5-10.5PMain Campus Medical Center Comment on above:Performed By: #### PINR #### [facility] ([id number]) [address], [address] [place], [place] [address]Krfolbtf [Moles/Vol]106 mmol/XHsdevt12-319EhjOlrrko [place] HospitalComment on above:Performed By: #### PINR #### [facility] ([id number]) [address], [address] [place], [place] [address]FX5 [Moles/Vol]24 mmol/QWvnpuk30-39WkgGzvoqrMain Campus Medical Center Comment on above:Performed By: #### PINR #### [facility] ([id number]) [address], [address] [place], [place] [address]Yortkernyf [Mass/Vol]1.30 mg/dLNormal0.60-1.30ProOhiohealth Hardin Memorial HospitalComment on above:Result Comment: METHOD TRACEABLE TO IDMS STANDARD Performed By: #### PINR #### [facility] ([id number]) [address] [address] [place], [place] [address]KRY/1.73 sq M.predicted among non-blacks MDRD (S/P/Bld) [Vol rate/Area]64 mL/min/{1.73_m2}Normal>59ProOhiohealth Hardin Memorial HospitalComment on above: Result Comment: Reported eGFR is based on the CKD-EPI 2020 equation that does not use a race coefficient.Performed By: #### PINR #### [facility] ([id number]) [address], [address] [place], [place] [address]Jcrkdfq [Mass/Vol]163 mg/fZYqcc92-53RymHgngeqOhiohealth Hardin Memorial Hospital Comment on above:Performed By: #### PINR #### [facility] ([id number]) [address], [address] [place], [place] [address]Ujlybjijd [Moles/Vol]4.1 mmol/LNormal3.5-5.0[facility] HospitalComment on above:Performed By: #### PINR #### [facility] ([id number]) [address], [address] [place], [place] [address]Uvphsg [Moles/Vol]139 mmol/MFpohas247-288NzkGqvbus [facility] HospitalComment on above:Performed By: #### PINR #### [facility] ([id number]) [address], [address] [place], [place] [address]Tjmf nitrogen [Mass/Vol]23 mg/dLNormal5-23ProGal[facility] Hospitalca [facility] HospitalComment on above:Performed By: #### PINR #### [facility] ([id number]) [address], [address] [place], [place] [address]Bympe gap [Moles/Vol]9 mmol/LNormal5-15Pro[facility] Comment on above:Performed By: #### CBC, BMP #### [facility] ([id number]) [address], [address] [place], [place] [address]Jbusqln [Mass/Vol]8.8 mg/dLNormal8.5-10.5Pro[facility] HospitalComment on above:Performed By: #### CBC, BMP #### [facility] ([id number]) [address], [address] [place], [place] [address]Glefazwr [Moles/Vol]104 mmol/TPgbjhg18-536YzrNuihpt [facility] HospitalComment on above:Performed By: #### TANYA, BMP #### [facility] ([id number]) [address], [address] [place], [place] [address]XW4 [Moles/Vol]25 mmol/OYzjols09-56VqoTqzoqpMain Campus Medical Center Comment on above:Performed By: #### TANYA, BMP #### [facility] ([id number]) [address], [address] [place], [place] [address]Qnltxoiobu [Mass/Vol]1.70 mg/dLHigh0.60-1.30ProOhiohealth Hardin Memorial HospitalComment on above:Result Comment: METHOD TRACEABLE TO IDMS STANDARD Performed By: #### TANYA, BMP #### [facility] ([id number]) [address], [address] [place], [place] [address]RXH/1.73 sq M.predicted among non-blacks MDRD (S/P/Bld) [Vol rate/Area]46 mL/min/{1.73_m2}Low>59ProOhiohealth Hardin Memorial HospitalComment on above: Result Comment: Reported eGFR is based on the CKD-EPI 2020 equation that does not use a race coefficient.Performed By: #### TANYA, BMP #### [facility] ([id number]) [address], [address] [place], [place] [address]Nzxwkvb [Mass/Vol]111 mg/yPBkov60-84IiuQyzsteOhiohealth Hardin Memorial Hospital Comment on above:Performed By: #### TANYA, BMP #### [facility] ([id number]) [address], [address] [place], [place] [address]Wachytjmv [Moles/Vol]3.8 mmol/LNormal3.5-5.0ProOhiohealth Hardin Memorial HospitalComment on above:Performed By: #### TANYA, BMP #### [facility] ([id number]) [address], [address] [place], [place] [address]Pcjidb [Moles/Vol]138 mmol/CBywvap557-537YbzIojaym [place] HospitalComment on above:Performed By: #### CBC, BMP #### [facility] ([id number]) [address], [address] [place], [place] [address]Jvbw nitrogen [Mass/Vol]28 mg/dLHigh5-23[facility] HospitalComment on above:Performed By: #### CBC, BMP #### [facility] ([id number]) [address], [address] [place], [place] [address]JY [Catalytic activity/Vol]on 95-28-8990NFO00 U/CFjabpu55-370 [facility] HospitalComment on above:Performed By: #### PINR #### [facility] ([id number]) [address], [facility] [address] [place], [place] [address]XGXUNUOK BLOOD COUNTon 51-66-0144Ertgkrnxjya distribution width (RBC) [Ratio]24.8 %High11.5-15.0[facility] HospitalComment on above: Performed By: #### PINR #### [facility] ([id number]) [address], [address] [place], [place] [address]Cgyfbowfuy (Bld) [Volume fraction]29.3 %Ltz37-60NpxIxidgi [facility] HospitalComment on above:Performed By: #### PINR #### [facility] ([id number]) [address], [address] [place], [place] [address]Awyehzfjej (Bld) [Mass/Vol]9.6 g/dLLow13.0-17.0[facility] HospitalComment on above:Performed By: #### PINR #### [facility] ([id number]) [address], [address] [place], [place] [address]WYO (RBC) [Entitic mass]24.9 jyLzn10-37RulTrofqe [facility] Comment on above:Performed By: #### PINR #### [facility] ([id number]) [address], [address] [place] [address]QAYD (RBC) [Mass/Vol]32.7 g/aXBtlxdm82-30KppJifuau [place] HospitalComment on above:Performed By: #### PINR #### [facility] ([id number]) [address], [address] [place] [address]RRY (RBC) [Entitic vol]76 dULlx49-913QpgMearijDoctors Hospital Comment on above:Performed By: #### PINR #### [facility] ([id number]) [address], [address] [place], [place] [address]Nufpbcyz mean volume (Bld) [Entitic vol]8.7 fLNormal7-12 [facility] HospitalComment on above:Performed By: #### PINR #### [facility] ([id number]) [address], [address] [place], [place] [address]Mupatukgx (Bld) [#/Vol]169 10*3/dRDxrgct762-828SsbCmrtss [place] HospitalComment on above:Performed By: #### PINR #### [facility] ([id number]) [address], [address] [place] [address]LUE COUNT3.85 X10E12/LLow4.10-5.70[facility] Comment on above:Performed By: #### PINR #### [facility] ([id number]) [address], [address] [place], [place] [address]DFJ (Bld) [#/Vol]13.5 10*3/uLHigh4.0-11.0[facility] HospitalComment on above:Performed By: #### PINR #### [facility] ([id number]) [address], [address] [place], [place] [address]Hlsjgjvttlw distribution width (RBC) [Ratio]25.2 %High11.5-15.0 [facility] HospitalComment on above:Performed By: #### CBC, BMP #### [facility] ([id number]) [address], [address] [place], [place] [address]Birchiziuf (Bld) [Volume fraction]33.0 %Ydl34-28XkqIhlbzv [place] HospitalComment on above:Performed By: #### CBC, BMP #### [facility] ([id number]) [address], [address] [place], [place] [address]Tbsmgtbqkk (Bld) [Mass/Vol]10.8 g/dLLow13.0-17.0ProOhiohealth [facility] HospitalComment on above:Performed By: #### CBC, BMP #### [facility] ([id number]) [address], [address] [place], [place] [address]WKA (RBC) [Entitic mass]25.0 seBus65-83BfpDhcrirDoctors Hospital Comment on above:Performed By: #### CBC, BMP #### [facility] ([id number]) [address], [address] [place], [place] [address]GTON (RBC) [Mass/Vol]32.8 g/kJKrbijn65-50TcdJumuaj [place] HospitalComment on above:Performed By: #### CBC, BMP #### [facility] ([id number]) [address], [address] [place], [place] [address]BEV (RBC) [Entitic vol]76 mBOyl04-318FjaGixrjhDoctors Hospital Comment on above:Performed By: #### CBC, BMP #### [facility] ([id number]) [address], [address] [place], [place] [address]Agsgymyo mean volume (Bld) [Entitic vol]8.8 fLNormal7-12 [facility] HospitalComment on above:Performed By: #### CBC, BMP #### [facility] ([id number]) [address], [address] [place], [place] [address]Kwddhswks (Bld) [#/Vol]172 10*3/iXLgcnel201-717KwyOtcslk [place] HospitalComment on above:Performed By: #### CBC, BMP #### [facility] ([id number]) [address], [address] [place] [address]KYF COUNT4.33 X10E12/LNormal4.10-5.70[facility] Comment on above:Performed By: #### CBC, BMP #### [facility] ([id number]) [address], [address] [place] [address]AYN (Bld) [#/Vol]9.3 10*3/uLNormal4.0-11.0ProOhiohealth [facility] HospitalComment on above:Performed By: #### CBC, BMP #### [facility] ([id number]) [address], [address] [place] [address]Joxoqxa Glucometer (BldC) [Mass/Vol]on 94-23-8123Kiqnxnk [Mass/Vol]162 mg/sSIdqs83-00TjfBdhjkr [facility] HospitalGlucose [Mass/Vol]96 mg/dL Bwntll67-64AfcQmbtaa [facility] HospitalGlucose [Mass/Vol]142 mg/xXNyta76-47 [facility] HospitalGlucose [Mass/Vol]114 mg/cRBslm64-54EejEjxqdm Marina HospitalLactate (P ekaterina) [Moles/Vol]on 11-72-8560FDNJVQN W/REFLEX1.0 mmol/LNormal 0.4-2.0ProOhiohealth Hardin Memorial HospitalComment on above:Result Comment: Result did not trigger repeat Lactate, re-order if needed.Performed By: #### PINR #### [facility] ([id number]) [address], [address] [place] [address]KRLDEZHLLzy 22-18-0952Dxhjwulni [Mass/Vol]1.7 mg/dLLow1.8-2.6 [facility] Rehabilitationa [facility] HospitalComment on above:Performed By: #### PINR #### [facility] ([id number]) [address], [address] [place], [place] [address]Zsmzxzinb [Mass/Vol]on 99-64-3049RETNO VSBQLOFWY53.1 ng/mLNormal 17.4-105.7[facility] HospitalComment on above:Performed By: #### PINR #### [facility] ([id number]) [address], [address] [place], [place] [address]YEKBWRZDXFql 47-35-4060Loduzrzep [Mass/Vol]4.0 mg/dLNormal 2.4-4.9ProGal[facility] Hospitalca [facility] HospitalComment on above:Performed By: #### PINR #### [facility] ([id number]) [address], [address] [place], [place] [address]VMSMNIZ AND INRon 01-77-8089RVO Coag (PPP) [Relative time]1.3 {INR}High0.8-1.1ProMedTogus [facility] Center HospitalComment on above:Performed By: #### PINR #### [facility] ([id number]) [address], [address] [place] [address]ZN Coag (PPP) [Time]14.7 sHigh9.8-13.2PCommunity [facility] Comment on above:Performed By: #### PINR #### [facility] ([id number]) [address], [address] [place], [place] [address]LTXDJ CARDIACon 71-82-5351KCPNP'S TESTNormalProMedica Ashley HospitalComment on above:Performed By: #### AFAB5 #### [facility] ([id number]) [address] [place], [place] [address]Whwa excess Calc (Bld) [Moles/Vol]0.1 mmol/LNormal0.0-2.0 [facility] HospitalComment on above:Performed By: #### AFAB5 #### [facility] ([id number]) [address] [place], [place] [address]Lvpk edfggsubnjf45.6 [degF]Srauos37.0[facility] Comment on above:Performed By: #### AFAB5 #### [facility] ([id number]) [address] [place], [place] [address]Ibdmzzm [Mass/Vol]117 mg/bYWppn49-64PrxPnwtwsDoctors Hospital Comment on above:Performed By: #### AFAB5 #### [facility] ([address] [place] [address]) [address] [place], [place] [address]PCG5 (Bld) [Moles/Vol]24.8 mmol/GApuear89-03XclRmdrwbOhiohealth Hardin Memorial HospitalComment on above:Performed By: #### AFAB5 #### [facility] ([id number]) [address] [place], [place] [address]Thumpmpact (Bld) [Volume fraction]31 %Krw95-38MznFfswjbOhiohealth Hardin Memorial HospitalComment on above:Performed By: #### AFAB5 #### [facility] ([id number]) [address] [place], [place] [address]Fbaikkmkvb (Bld) [Mass/Vol]10.2 g/dLLow13.0-17.0ProOhiohealth Hardin Memorial HospitalComment on above:Performed By: #### AFAB5 #### [facility] ([id number]) [address] [place], [place] [address]OHVK. O2 CONC.100 %NormalProOhiohealth Hardin Memorial HospitalComment on above:Performed By: #### AFAB5 #### [facility] ([id number]) [address] [place], [place] [address]EEMHDUQ CALCIUM4.8 mg/dLNormal4.5-5.3PMain Campus Medical Center Comment on above:Performed By: #### AFAB5 #### [facility] ([id number]) [address] [place], [place] [address]Kvripl (Bld) [Partial pressure]167 mm[Hg]Ajjp45-960WugKdqixr [facility] HospitalComment on above:Performed By: #### AFAB5 #### [facility] ([id number]) [address] [place], [place] [address]Bublwt saturation in Aegjh384.8 %Normal>90[facility] HospitalComment on above:Performed By: #### AFAB5 #### [facility] ([id number]) [address] [place], [place] [address]HST937.7 WKRFWgtpku81-32ZcuGbagix [facility] HospitalComment on above:Performed By: #### AFAB5 #### [facility] ([id number]) [address] [place], [place] [address]yJ (Bld)7.404 [pH]Normal7.350-7.450[facility] Comment on above:Performed By: #### AFAB5 #### [facility] ([id number]) [address] [place], [place] [address]Nkqvzelnk [Moles/Vol]3.8 mmol/LNormal3.5-5.0[facility] HospitalComment on above:Performed By: #### AFAB5 #### [facility] ([id number]) [address] [place], [place] [address]EFCVST SITEALINENormalProMedica Marina HospitalComment on above: Performed By: #### AFAB5 #### [facility] ([id number]) [address] [place], [place] [address]CIXCCV TYPEArterialNormalProMedica Marina HospitalComment on above:Performed By: #### AFAB5 #### [facility] ([id number]) [address] [place], [place] [address]PZSJV CARDIAC W/ NAon 33-99-7315ELJPY'S TESTNormalProMedica Ashley HospitalComment on above:Performed By: #### PINR #### [facility] ([id number]) [address], [address] [place], [place] [address]Orxu excess Calc (Bld) [Moles/Vol]0.2 mmol/LNormal0.0-2.0 [facility] HospitalComment on above:Performed By: #### PINR #### [facility] ([id number]) [address], [address] [place], [place] [address]Emzp paawhvcjzbu78.6 [degF]Hxsudc05.0[facility] Comment on above:Performed By: #### PINR #### [facility] ([id number]) [address] [place], [place] [address]Xpfnryy [Mass/Vol]125 mg/qBLlaq87-12OhfOhyauhDoctors Hospital Comment on above:Performed By: #### PINR #### [facility] ([id number]) [address], [address] [place], [place] [address]ZCS9 (Bld) [Moles/Vol]25.3 mmol/CVfcgyd07-09PyvQekmux [place] HospitalComment on above:Performed By: #### PINR #### [facility] ([id number]) [address], [address] [place], [place] [address]Tmvcmqsxfo (Bld) [Volume fraction]31 %Zun06-07HcnVfgblk [place] HospitalComment on above:Performed By: #### PINR #### [facility] ([id number]) [address], [address] [place], [place] [address]Krkedqyhhr (Bld) [Mass/Vol]10.0 g/dLLow13.0-17.0ProOhiohealth [facility] HospitalComment on above:Performed By: #### PINR #### [facility] ([id number]) [address], [address] [place], [place] [address]GRLP. O2 CONC.50 %NormalProMedica Ashley HospitalComment on above:Performed By: #### PINR #### [facility] ([id number]) [address], [address] [place], [place] [address]LXOOYRD CALCIUM4.7 mg/dLNormal4.5-5.3[facility] Comment on above:Performed By: #### PINR #### [facility] ([id number]) [address], [address] [place], [place] [address]Ordqrt (Bld) [Partial pressure]131 mm[Hg]Pdlp84-018WtkYzvslo [facility] HospitalComment on above:Performed By: #### PINR #### [facility] ([id number]) [address], [address] [place], [place] [address]Yoxqvt saturation in Blood99.9 %Normal>90[facility] HospitalComment on above:Performed By: #### PINR #### [facility] ([id number]) [address], [address] [place], [place] [address]RWI906.7 MVFXGallvd87-23WysBgoufl [facility] HospitalComment on above:Performed By: #### PINR #### [facility] ([id number]) [address], [address] [place], [place] [address]vI (Bld)7.381 [pH]Normal7.350-7.450ProGalion Community Hospitalca [facility] Comment on above:Performed By: #### PINR #### [facility] ([id number]) [address], [address] [place], [place] [address]Ovutnaqkt [Moles/Vol]3.7 mmol/LNormal3.5-5.0[facility] [place] HospitalComment on above:Performed By: #### PINR #### [facility] ([id number]) [address], [address] [place], [place] [address]SYFVSZ SITEALINENormalProMedica [place] HospitalComment on above: Performed By: #### PINR #### [facility] ([id number]) [address], [address] [place], [place] [address]WKXOHK TYPEArterialNormalProMedica [place] HospitalComment on above:Performed By: #### PINR #### [facility] ([id number]) [address], [address] [place], [place] [address]Nwjtnz [Moles/Vol]139 mmol/BFxntpo021-178GmsGuyhgg [place] HospitalComment on above:Performed By: #### PINR #### [facility] ([id number]) [address], [address] [place], [place] [address]nLFA Coag (PPP) [Time]on 76-23-7884tKVL Coag (Bld) [Time]30 s Dnghdn84-19AsjHyncvg [place] HospitalComment on above:Performed By: #### PINR #### [facility] ([id number]) [address], [address] [place], [place] [address]Wxzmtfq Glucometer (BldC) [Mass/Vol]on 84-71-0609Jzwfeld [Mass/Vol]150 mg/xCTyno72-26RmrZtyala [place] HospitalGlucose [Mass/Vol]58 mg/dL Ydm45-99CfzKofeqq [place] HospitalPOC SHQZ9wn 04-20-2466Ntpovypj [Moles/Vol]98 mmol/OCosdeo49-296QktYlydhu [place] HospitalComment on above:Performed By: #### IELGBC #### [facility] ([id number]) [address] [place], [place] [address]ED[address] [Moles/Vol]31 mmol/PHpovwx27-80WwqZdpsaj [place] [facility] Comment on above:Performed By: #### IELGBC #### [facility] ([id number]) [address] [place], [place] [address]Jmvjrxejyq [Mass/Vol]1.9 mg/dLHigh0.7-1.2PMain Campus Medical CenterComment on above:Result Comment: METHOD TRACEABLE TO IDMS STANDARD Performed By: #### IELGBC #### [facility] ([id number]) [address] [place], [place] [address]CMI/1.73 sq M.predicted among non-blacks MDRD (S/P/Bld) [Vol rate/Area]40 mL/min/{1.73_m2}Low>59[facility] – JacksonComment on above: Result Comment: Reported eGFR is based on the CKD-EPI 2020 equation that does not use a race coefficient.Performed By: #### IELGBC #### [facility] ([id number]) [address] [place], [place] [address]Oxljcax [Mass/Vol]72 mg/nNSjvxgq29-60HstBjcuul [facility] Comment on above:Performed By: #### IELGBC #### [facility] ([id number]) [address] [place], [place] [address]Xittqdulq [Moles/Vol]3.6 mmol/LNormal3.5-5.0ProOhiohealth Hardin Memorial HospitalComment on above:Performed By: #### IELGBC #### [facility] ([id number]) [address] [place], [place] [address]Qecugg [Moles/Vol]139 mmol/MIvbsst057-609JmuLotaqf [place] HospitalComment on above:Performed By: #### IELGBC #### [facility] ([id number]) [address] [place], [place] [address]Cqfq nitrogen [Mass/Vol]31 mg/dLHigh6-23ProOhiohealth Hardin Memorial HospitalComment on above:Performed By: #### IELGBC #### [facility] ([id number]) [address] [place], [place] [address]SOAGJMY AND INRon 09-41-3027HKC Coag (PPP) [Relative time]1.3 {INR}High0.8-1.1PMain Campus Medical CenterComment on above:Performed By: #### PINR #### [facility] ([id number]) [address], [address] [place], [place] [address]YI Coag (PPP) [Time]14.5 sHigh9.8-13.2PMain Campus Medical Center Comment on above:Performed By: #### PINR #### [facility] ([id number]) [address], [address] [place], [place] [address]PWC [address] Lead[address] 37-21-6661WcyayeoxeyLutheran Hospital Work Phone: Consent for Treatmenton 87-31-7837Kewnjok for [id number]#1.00TIFFClermont County HospitalHeart and Vascular Office/Clinic Noteon 10-62-1558Hnagu and Vascular Office/Clinic NoteChief Complaint F/U Testing History of Present Illness [...] 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, right leg) [...] failure) GERD [Gastroesophageal reflux disease] HTN [Hypertension] NE (myocardial infarction) NIDDM Procedure/Surgical History TURP - [...] tablet, 160 mg= 1 tab(s), Oral, Daily hydrochlorothiazide-valsartan 12.5 mg-160 mg Tab, Oral, Daily Imdur [...] 0.4 mg= 1 tab(s), SubLingual, q5min, PRN [place] 325 mg-5 mg oral tablet, 1 tab(s), [...] Oral, BID, 11 refills (more content not included)...NormalFisher Coweta Medical CenterComment on above:Result Comment: Electronically Signed By: Mike Montes MD\.br\Date and Time Signed: 10/23/23 10:35 EDTUS PVR Lower EXT Complete Bilaton 31-36-8603AW PVR Lower EXT Complete BilatExam Date/Time: 10/19/2023 14:56 EDT Reason for Exam: [...] Christiano Guillen MD Transcribed by: HASEEB Technologist: Cherrington HospitalCHEMISTRY Ordered By: SYSTEM SYSTEM on 03-65-4146Txkqyqslwa [Mass/Vol]1.6 mg/dLHigh0.5 - 1.3 mg/dLRemisol YklwqPQE70 mL/min/1.73 m2Low>=59mL/min/1.73 b3Gmvhsgt ChemCTA Abd Aorto-bilat/ iliofemoral runoffon 30-73-4880FLB Abd Aorto-bilat/ iliofemoral runoffExam Date/Time: 10/19/2023 15:12 EDT Reason for Exam: [...] Contrast: Isovue 370 Contrast amount in ml's: 150NoCrystal Clinic Orthopedic CenterConsent for Treatmenton 59-11-0818Ovsuhkr for Treatment [id number]#1.00TIFAvita Health SystemCreatinineon 01-48-6428Ytnrgjhwii [Mass/Vol]1.6 mg/dLHigh0.5-1.3Fisher [facility] Medical CenterComment on above:Performed By: #### [id number] #### [facility] [address], [place] [address]Fjtvzhvbe Orderon 14-50-7165Illptexma Order [id number]#1.00TIFAvita Health SystemeGFRon 11-87-1334wAYM30 mL/min/1.73 m2Low>=59[facility] Comment on above:Order Comment: Order added by Discern Expert.Performed By: #### [id number] #### [facility] [address] [place], [place] [address]Adjngae Progress Noteon 24-77-3210Cithqar Progress Note [id number]#1.00TIFFNormAdventHealththong [facility] Medical CenterPhysician Orderon 90-65-4435Vnymdajgb Order [id number]#1.00TIFFNoUNC Health Caldwellthong [facility] Medical CenterPhysician [id number]#1.00TIFKristiadebayo Chatman [facility] Medical CenterBasophils Auto (Bld) [#/Vol]on 41-35-7677Ckpfbtgga (Bld) [#/Vol]0.0 10 3/uL0.0-0.1FWhite HospitalBasophils/100 WBC Auto (Bld)on 49-79-9854Ndmhbjzyl/100 WBC (Bld)0.3 %0.2-2.0[facility] HospitalEosinophils/100 WBC Auto (Bld)on 33-79-9436Yvrvelpklef/100 WBC (Bld)1.9 %0.9-7.0[facility] HospitalErythrocyte distribution width Auto (RBC) [Ratio]on 70-03-4701Llazutuejgk distribution width (RBC) [Ratio]19.9 %High11.0-15.0[facility] HospitalEstimated glomerular filtration rate (GFR) non- Americanon 98-77-4783UTS/1.73 sq M.predicted among non- blacks MDRD (S/P/Bld) [Vol rate/Area]42 mL/min/{1.73_m2}Low>=60T[facility]carawas HospitalGlobulin Calc (S) [Mass/Vol]on 51-46-3637Ojcvkgzi (S) [Mass/Vol]4.3 g/dLTuscarawas HospitalHematocrit Auto (Bld) [Volume fraction]on 89-09-6718Rntgxrsktl (Bld) [Volume fraction]28.3 %Low42.0-54.0 [facility] HospitalHemoglobin [Mass/volume] in Bloodon 10-06-2023 Hemoglobin (Bld) [Mass/Vol]8.4 g/dLLow14.0-18.0[facility] - Chemistry and Chemistry - challengeon 19-33-1459Ybppvkq [Mass/Vol] 2.1 g/dLLow3.4-5.0[facility] HospitalALP [Catalytic activity/Vol] 133 U/JWydy69-217NefyclnkzTuscarawas HospitalALT [Catalytic activity/Vol]18 U/Y26-34IxbvzdblyTuscarawas HospitalAST [Catalytic activity/Vol]20 U/L15-37 [facility] HospitalBilirubin [Mass/Vol]0.3 mg/dL0.2-1.0[facility] HospitalCalcium [Mass/Vol]9.4 mg/dL8.5-10.1FWhite HospitalChloride [Moles/Vol]103 mmol/C60-902ZhgcxnwjuTuscarawas HospitalCO2 [Moles/Vol]23.7 mmol/L21.0-32.0[facility] Creatinine [Mass/Vol]1.67 mg/dLHigh0.70-1.30[facility] GFR/1.73 sq M.predicted MDRD (S/P/Bld) [Vol rate/Area]52 mL/min/{1.73_m2}Low>=60 [facility] HospitalGlucose [Mass/Vol]91 mg/fC86-902WkccurviqTuscarawas HospitalMagnesium [Mass/Vol]1.6 mg/dLLow1.8-2.4FWhite HospitalPotassium [Moles/Vol]4.8 mmol/L3.5-5.1FWhite HospitalProtein [Mass/Vol]6.4 g/dL6.4-8.2FSelect Medical Specialty Hospital - Cincinnati Northodium [Moles/Vol]136 mmol/P602-145IjfplbtztTuscarawas HospitalUrea nitrogen [Mass/Vol]29.0 mg/dLHigh7.0-18.0[facility] HospitalUrea nitrogen/Creatinine [Mass ratio]17.4 mg/mgTuscarawas Hospital Laboratory - Hematology and Cell countson 63-50-5437NRZ (Bld) [Velocity]mm/hHigh <=20T[facility]as HospitalImmature granulocytes/100 WBC (Bld)1.5 % High0.0-0.5FWhite HospitalLeukocytes [#/volume] corrected for nucleated erythrocytes in Blood by Automated counon 62-48-9916EOQ corrected for nucl RBC Auto (Bld) [#/Vol]11.6 10 3/uLHigh4.0-11.0[facility] HospitalLymphocytes Auto (Bld) [#/Vol]on 17-57-1389Ygblysfhosi (Bld) [#/Vol]1.5 10 3/uL1.2-3.8[facility] HospitalLymphocytes/100 WBC Auto (Bld)on 63-19-4937Yibkhnzukof/100 WBC (Bld)12.9 %Low20.5-60.0[facility] HospitalH Auto (RBC) [Entitic mass]on 42-26-6829JIP (RBC) [Entitic mass]22.5 pg Low25.9-34.0[facility] HospitalMCHC Auto (RBC) [Mass/Vol]on 84-48-9969LZGX (RBC) [Mass/Vol]29.7 g/dLLow29.9-35.2FWhite HospitalMCV Auto (RBC) [Entitic vol]on 85-44-8414YVR (RBC) [Entitic vol]75.9 fLLow 80.0-94.0[facility] HospitalMonocytes Auto (Bld) [#/Vol]on 37-50-5943Aeueevahx (Bld) [#/Vol]1.3 10 3/uLHigh0.3-0.8[facility] HospitalMonocytes/100 WBC Auto (Bld)on 80-55-9630Qpeafmpeb/100 WBC (Bld) 10.9 %1.7-12.0[facility] HospitalNeutrophils Auto (Bld) [#/Vol]on 87-66-8023Gqyfeubyijy (Bld) [#/Vol]8.4 10 3/uLHigh1.4-6.5FWhite HospitalNeutrophils/100 WBC Auto (Bld)on 14-43-7913Fremzrcgxjn/100 WBC (Bld)72.5 %43.0-75.0[facility] HospitalNo Panel Informationon 20-07-6717Dyrfmcwmjqb # (Auto)0.2 10 3/uL0.0-0.7FWhite HospitalImmature Granulocyte # (Auto)0.17 10 3/uLHigh0.00-0.03T[facility]as HospitalPlatelet mean volume Auto (Bld) [Entitic vol]on 26-39-6360Vhlknana mean volume (Bld) [Entitic vol]10.3 fL9.5-13.5FWhite Hospital Platelets Auto (Bld) [#/Vol]on 80-13-5990Xqqhbjosk (Bld) [#/Vol]233 10 3/uL 150-450T[facility]carawas HospitalRBC Auto (Bld) [#/Vol]on 22-30-4826FMK (Bld) [#/Vol]3.73 10 6/uLLow4.70-6.10[facility], Beachwooderum or plasma albumin/globulin mass ratioon 86-69-2825Yrxlpro/Globulin [Mass ratio]0.5 {ratio}[facility], Beachwooderum or plasma anion gap determination on 02-28-5370Delik gap [Moles/Vol]14.1 mmol/LFWhite Hospital Basophils Auto (Bld) [#/Vol]on 37-34-8105Mzhiskbtq (Bld) [#/Vol]0.1 10 3/uL 0.0-0.1FWhite HospitalBasophils/100 WBC Auto (Bld)on 46-11-0430Ommjcrppi/100 WBC (Bld)0.6 %0.2-2.0[facility] Eosinophils/100 WBC Auto (Bld)on 37-19-4971Jdihjupkbno/100 WBC (Bld)3.3 %0.9-7.0 [facility] HospitalErythrocyte distribution width Auto (RBC) [Ratio]on 74-74-5814Jskobqmeapq distribution width (RBC) [Ratio]19.6 %High 11.0-15.0[facility] HospitalEstimated glomerular filtration rate (GFR) non- Americanon 73-04-7953YIF/1.73 sq M.predicted among non-blacks MDRD (S/P/Bld) [Vol rate/Area]41 mL/min/{1.73_m2}Low>=60T[facility] HospitalGlobulin Calc (S) [Mass/Vol]on 12-20-9009Bqojgoua (S) [Mass/Vol] 4.7 g/dLTuscarawas HospitalHematocrit Auto (Bld) [Volume fraction] on 62-55-8937Fcjiqmgmhx (Bld) [Volume fraction]29.9 %Low42.0-54.0[facility] HospitalHemoglobin [Mass/volume] in Bloodon 08-63-1424Xkvkusclhi (Bld) [Mass/Vol]9.0 g/dLLow14.0-18.0[facility] HospitalLaboratory - Chemistry and Chemistry - challengeon 62-83-2749Mdjzqrt [Mass/Vol]2.2 g/dLLow 3.4-5.0[facility] HospitalALP [Catalytic activity/Vol]140 U/LHigh 46-116T[facility] HospitalALT [Catalytic activity/Vol]18 U/L16-63 [facility] HospitalAST [Catalytic activity/Vol]22 U/L15-37 [facility] HospitalBilirubin [Mass/Vol]0.5 mg/dL0.2-1.0[facility] HospitalCalcium [Mass/Vol]9.2 mg/dL8.5-10.1FWhite HospitalChloride [Moles/Vol]100 mmol/Z57-708RvqrmvnaoTuscarawas HospitalCO2 [Moles/Vol]22.6 mmol/L21.0-32.0[facility] Creatinine [Mass/Vol]1.74 mg/dLHigh0.70-1.30[facility] GFR/1.73 sq M.predicted MDRD (S/P/Bld) [Vol rate/Area]49 mL/min/{1.73_m2}Low>=60 [facility] HospitalGlucose [Mass/Vol]162 mg/uPJfhz00-905AcjhmeqaoTuscarawas HospitalMagnesium [Mass/Vol]1.7 mg/dLLow1.8-2.4FWhite HospitalPotassium [Moles/Vol]5.3 mmol/LHigh3.5-5.1FWhite HospitalProtein [Mass/Vol]6.9 g/dL6.4-8.2FWhite Hospital Sodium [Moles/Vol]133 mmol/GGyp403-068FrapvluziTuscarawas HospitalUrea nitrogen [Mass/Vol]30.0 mg/dLHigh7.0-18.0[facility] HospitalUrea nitrogen/Creatinine [Mass ratio]17.2 mg/mgTuscarawas Hospital Laboratory - Hematology and Cell countson 20-98-2116QQS (Bld) [Velocity]130 mm/h High<=20T[facility] HospitalImmature granulocytes/100 WBC (Bld)1.3 %High0.0-0.5FWhite HospitalLeukocytes [#/volume] corrected for nucleated erythrocytes in Blood by Automated counon 69-27-0173TZL corrected for nucl RBC Auto (Bld) [#/Vol]12.6 10 3/uLHigh4.0-11.0[facility] HospitalLymphocytes Auto (Bld) [#/Vol]on 25-95-9136Oowmpfdezgm (Bld) [#/Vol]1.3 10 3/uL1.2-3.8[facility] HospitalLymphocytes/100 WBC Auto (Bld)on 77-38-0492Qovzdavjzow/100 WBC (Bld)10.1 %Low20.5-60.0[facility] HospitalMCH Auto (RBC) [Entitic mass]on 17-36-4677FPK (RBC) [Entitic mass]22.7 pg Low25.9-34.0[facility] HospitalMCHC Auto (RBC) [Mass/Vol]on 52-28-8449UHDG (RBC) [Mass/Vol]30.1 g/dL29.9-35.2FWhite HospitalMCV Auto (RBC) [Entitic vol]on 22-36-3711WMH (RBC) [Entitic vol]75.3 fLLow 80.0-94.0[facility] HospitalMonocytes Auto (Bld) [#/Vol]on 98-62-9752Myiqjmill (Bld) [#/Vol]1.4 10 3/uLHigh0.3-0.8[facility] HospitalMonocytes/100 WBC Auto (Bld)on 42-34-3204Dyzfosydh/100 WBC (Bld) 10.9 %1.7-12.0[facility] HospitalNeutrophils Auto (Bld) [#/Vol]on 43-94-2177Hytqusxhnco (Bld) [#/Vol]9.3 10 3/uLHigh1.4-6.5FWhite HospitalNeutrophils/100 WBC Auto (Bld)on 02-05-6782Nxhxxkqyjgd/100 WBC (Bld)73.8 %43.0-75.0[facility] HospitalNo Panel Informationon 47-00-4018Pxpktbbkwlm # (Auto)0.4 10 3/uL0.0-0.7FWhite HospitalImmature Granulocyte # (Auto)0.16 10 3/uLHigh0.00-0.03[facility] HospitalPlatelet mean volume Auto (Bld) [Entitic vol]on 23-39-8911Lbjtfpwe mean volume (Bld) [Entitic vol]11.3 fL9.5-13.5FWhite Hospital Platelets Auto (Bld) [#/Vol]on 45-57-9758Vgoneufjp (Bld) [#/Vol]203 10 3/uL 150-450T[facility]carawas HospitalRBC Auto (Bld) [#/Vol]on 09-20-4487RMC (Bld) [#/Vol]3.97 10 6/uLLow4.70-6.10[facility], Beachwooderum or plasma albumin/globulin mass ratioon 87-54-9526Cmrcndp/Globulin [Mass ratio]0.5 {ratio}[facility], Beachwooderum or plasma anion gap determination on 59-95-3173Kqigc gap [Moles/Vol]15.7 mmol/LFirelands Regional Medical Center Basophils Auto (Bld) [#/Vol]on 43-58-9026Fpqmjnwmt (Bld) [#/Vol]0.1 10 3/uL 0.0-0.1FWhite HospitalBasophils/100 WBC Auto (Bld)on 89-40-0363Berbqfcmj/100 WBC (Bld)0.5 %0.2-2.0[facility] Eosinophils/100 WBC Auto (Bld)on 26-76-0735Nizytguomrd/100 WBC (Bld)3.6 %0.9-7.0 [facility] HospitalErythrocyte distribution width Auto (RBC) [Ratio]on 71-47-2338Jkzftwpvopw distribution width (RBC) [Ratio]19.6 %High 11.0-15.0[facility] HospitalEstimated glomerular filtration rate (GFR) non- Americanon 44-50-3683MNK/1.73 sq M.predicted among non-blacks MDRD (S/P/Bld) [Vol rate/Area]44 mL/min/{1.73_m2}Low>=60T[facility] HospitalGlobulin Calc (S) [Mass/Vol]on 63-12-9928Shtdzghe (S) [Mass/Vol] 4.3 g/dLTuscarawas HospitalHematocrit Auto (Bld) [Volume fraction] on 06-71-0110Rlxfeqtgux (Bld) [Volume fraction]26.8 %Low42.0-54.0[facility] HospitalHemoglobin [Mass/volume] in Bloodon 18-14-9691Ksrvuwursz (Bld) [Mass/Vol]7.9 g/dLLow14.0-18.0[facility] HospitalLaboratory - Chemistry and Chemistry - challengeon 00-71-6316[place] [Mass/Vol]1.9 g/dLLow 3.4-5.0[facility] HospitalALP [Catalytic activity/Vol]135 U/LHigh 46-116T[facility] HospitalALT [Catalytic activity/Vol]16 U/L16-63 [facility] HospitalAST [Catalytic activity/Vol]19 U/L15-37 [facility] HospitalBilirubin [Mass/Vol]0.4 mg/dL0.2-1.0[facility] HospitalCalcium [Mass/Vol]7.8 mg/dLLow8.5-10.1FWhite HospitalChloride [Moles/Vol]102 mmol/W27-368NmoeuppfwTuscarawas HospitalCO2 [Moles/Vol]25.0 mmol/L21.0-32.0[facility] Creatinine [Mass/Vol]1.61 mg/dLHigh0.70-1.30[facility] GFR/1.73 sq M.predicted MDRD (S/P/Bld) [Vol rate/Area]54 mL/min/{1.73_m2}Low>=60 [facility] HospitalGlucose [Mass/Vol]136 mg/kMUzfl83-505NgimnvcjbTuscarawas HospitalMagnesium [Mass/Vol]1.7 mg/dLLow1.8-2.4FWhite HospitalPotassium [Moles/Vol]5.1 mmol/L3.5-5.1FWhite HospitalProtein [Mass/Vol]6.2 g/dLLow6.4-8.2FWhite Hospital Sodium [Moles/Vol]134 mmol/MYge669-986EfpwufmzgTuscarawas HospitalUrea nitrogen [Mass/Vol]25.0 mg/dLHigh7.0-18.0[facility] HospitalUrea nitrogen/Creatinine [Mass ratio]15.5 mg/mgTuscarawas Hospital Laboratory - Hematology and Cell countson 26-57-8066TMR (Bld) [Velocity]117 mm/h High<=20T[facility] HospitalImmature granulocytes/100 WBC (Bld)0.9 %High0.0-0.5FWhite HospitalLeukocytes [#/volume] corrected for nucleated erythrocytes in Blood by Automated counon 26-96-4235DTP corrected for nucl RBC Auto (Bld) [#/Vol]11.5 10 3/uLHigh4.0-11.0[facility] HospitalLymphocytes Auto (Bld) [#/Vol]on 23-88-2719Yajgqsiujdh (Bld) [#/Vol]1.3 10 3/uL1.2-3.8[facility] HospitalLymphocytes/100 WBC Auto (Bld)on 16-91-5024Rswmfbtzqhu/100 WBC (Bld)10.9 %Low20.5-60.0[facility] HospitalH Auto (RBC) [Entitic mass]on 87-94-5143WZF (RBC) [Entitic mass]22.4 pg Low25.9-34.0[facility] HospitalHC Auto (RBC) [Mass/Vol]on 50-78-8975LSWO (RBC) [Mass/Vol]29.5 g/dLLow29.9-35.2FSt. Charles HospitalV Auto (RBC) [Entitic vol]on 04-78-3585QFA (RBC) [Entitic vol]75.9 fLLow 80.0-94.0[facility] HospitalMonocytes Auto (Bld) [#/Vol]on 24-08-7445Ssftsuule (Bld) [#/Vol]1.4 10 3/uLHigh0.3-0.8[facility] HospitalMonocytes/100 WBC Auto (Bld)on 48-36-9279Cqiyeayej/100 WBC (Bld) 12.4 %High1.7-12.0[facility] HospitalNeutrophils Auto (Bld) [#/Vol]on 10-90-4318Igpkoirfuap (Bld) [#/Vol]8.3 10 3/uLHigh1.4-6.5FWhite HospitalNeutrophils/100 WBC Auto (Bld)on 10-04-2023 Neutrophils/100 WBC (Bld)71.7 %43.0-75.0[facility] HospitalNo Panel Informationon 58-28-1989Ulpfdnfuezu # (Auto)0.4 10 3/uL0.0-0.7FWhite HospitalImmature Granulocyte # (Auto)0.10 10 3/uLHigh0.00-0.03 [facility] HospitalPlatelet mean volume Auto (Bld) [Entitic vol]on 23-84-3090Wpzlozgp mean volume (Bld) [Entitic vol]11.5 fL9.5-13.5FWhite HospitalPlatelets Auto (Bld) [#/Vol]on 54-32-5442Inmijfrvx (Bld) [#/Vol]154 10 3/jO160-587PiicuvcrtTuscarawas HospitalRBC Auto (Bld) [#/Vol] on 08-99-0835BXO (Bld) [#/Vol]3.53 10 6/uLLow4.70-6.10[facility], Beachwooderum or plasma albumin/globulin mass ratioon 88-99-9319Bmeaspy/Globulin [Mass ratio]0.4 {ratio}[facility], Beachwooderum or plasma anion gap determinationon 90-95-0034Uppmz gap [Moles/Vol]12.1 mmol/LFWhite HospitalBasophils Auto (Bld) [#/Vol]on 10-34-3188Hgrxyioun (Bld) [#/Vol] 0.1 10 3/uL0.0-0.1FWhite HospitalBasophils/100 WBC Auto (Bld) on 15-57-6325Ybxottscn/100 WBC (Bld)0.7 %0.2-2.0[facility] HospitalEosinophils/100 WBC Auto (Bld)on 51-59-5112Iwptfvnoydq/100 WBC (Bld)2.7 % 0.9-7.0[facility] HospitalErythrocyte distribution width Auto (RBC) [Ratio]on 18-86-8401Uyialltyvdc distribution width (RBC) [Ratio]19.2 %High 11.0-15.0[facility] HospitalEstimated glomerular filtration rate (GFR) non- Americanon 58-42-9298BTM/1.73 sq M.predicted among non-blacks MDRD (S/P/Bld) [Vol rate/Area]46 mL/min/{1.73_m2}Low>=60T[facility]as HospitalGlobulin Calc (S) [Mass/Vol]on 18-13-0228Sgpyypck (S) [Mass/Vol] 4.1 g/dLTuscarawas HospitalHematocrit Auto (Bld) [Volume fraction] on 90-44-9150Wxvalhvpnk (Bld) [Volume fraction]26.4 %Low42.0-54.0[facility] HospitalHemoglobin [Mass/volume] in Bloodon 20-13-4124Lcflswzfpr (Bld) [Mass/Vol]8.1 g/dLLow14.0-18.0[facility] HospitalLaboratory - Chemistry and Chemistry - challengeon 05-91-8093Ltkeeus [Mass/Vol]1.9 g/dLLow 3.4-5.0[facility] HospitalALP [Catalytic activity/Vol]140 U/LHigh 46-116T[facility] HospitalALT [Catalytic activity/Vol]17 U/L16-63 [facility] HospitalAST [Catalytic activity/Vol]21 U/L15-37 [facility] HospitalBilirubin [Mass/Vol]0.3 mg/dL0.2-1.0[facility] HospitalCalcium [Mass/Vol]6.7 mg/dLLow8.5-10.1FWhite HospitalChloride [Moles/Vol]101 mmol/S30-553DbwdmzhqqTuscarawas HospitalCO2 [Moles/Vol]23.9 mmol/L21.0-32.0[facility] Creatinine [Mass/Vol]1.57 mg/dLHigh0.70-1.30[facility] GFR/1.73 sq M.predicted MDRD (S/P/Bld) [Vol rate/Area]55 mL/min/{1.73_m2}Low>=60 [facility] HospitalGlucose [Mass/Vol]142 mg/yVBhsa91-261JmnzurqswTuscarawas HospitalMagnesium [Mass/Vol]1.3 mg/dLLow1.8-2.4FWhite HospitalPotassium [Moles/Vol]4.8 mmol/L3.5-5.1FWhite HospitalProtein [Mass/Vol]6.0 g/dLLow6.4-8.2FWhite Hospital Sodium [Moles/Vol]134 mmol/TBiy292-919OqgqrjaizTuscarawas HospitalUrea nitrogen [Mass/Vol]23.0 mg/dLHigh7.0-18.0[facility] HospitalUrea nitrogen/Creatinine [Mass ratio]14.6 mg/mgTuscarawas Hospital Laboratory - Hematology and Cell countson 01-40-6082YFU (Bld) [Velocity]mm/hHigh <=20T[facility] HospitalImmature granulocytes/100 WBC (Bld)1.0 % High0.0-0.5FWhite HospitalLeukocytes [#/volume] corrected for nucleated erythrocytes in Blood by Automated counon 90-17-0678OAK corrected for nucl RBC Auto (Bld) [#/Vol]11.6 10 3/uLHigh4.0-11.0[facility] HospitalLymphocytes Auto (Bld) [#/Vol]on 88-30-3048Pwdxqtuildm (Bld) [#/Vol]1.4 10 3/uL1.2-3.8[facility] HospitalLymphocytes/100 WBC Auto (Bld)on 79-59-1759Vghclqghckd/100 WBC (Bld)12.1 %Low20.5-60.0[facility] HospitalH Auto (RBC) [Entitic mass]on 84-16-7958GIO (RBC) [Entitic mass]23.2 pg Low25.9-34.0[facility] HospitalMCHC Auto (RBC) [Mass/Vol]on 62-67-7493CVCS (RBC) [Mass/Vol]30.7 g/dL29.9-35.2FWhite HospitalMCV Auto (RBC) [Entitic vol]on 53-67-9507BPI (RBC) [Entitic vol]75.6 fLLow 80.0-94.0[facility] HospitalMonocytes Auto (Bld) [#/Vol]on 05-86-2589Abtiecehd (Bld) [#/Vol]1.3 10 3/uLHigh0.3-0.8[facility] HospitalMonocytes/100 WBC Auto (Bld)on 36-04-3854Lejtttmns/100 WBC (Bld) 10.8 %1.7-12.0[facility] HospitalNeutrophils Auto (Bld) [#/Vol]on 87-88-3359Bqiwbflfirs (Bld) [#/Vol]8.5 10 3/uLHigh1.4-6.5FWhite HospitalNeutrophils/100 WBC Auto (Bld)on 70-17-2408Ycbraflhcdv/100 WBC (Bld)72.7 %43.0-75.0[facility] HospitalNo Panel Informationon 20-03-5888Vrohzorokzz # (Auto)0.3 10 3/uL0.0-0.7FWhite HospitalImmature Granulocyte # (Auto)0.12 10 3/uLHigh0.00-0.03[facility] HospitalPlatelet mean volume Auto (Bld) [Entitic vol]on 63-52-6268Ncnztuqv mean volume (Bld) [Entitic vol]11.3 fL9.5-13.5FWhite Hospital Platelets Auto (Bld) [#/Vol]on 44-49-6925Nwccbmfbm (Bld) [#/Vol]141 10 3/uLLow 150-450T[facility]carawas HospitalRBC Auto (Bld) [#/Vol]on 01-16-9640OIR (Bld) [#/Vol]3.49 10 6/uLLow4.70-6.10[facility], Beachwooderum or plasma albumin/globulin mass ratioon 84-56-9900Pwpkosy/Globulin [Mass ratio]0.5 {ratio}[facility], Beachwooderum or plasma anion gap determination on 40-01-4011Vzqxr gap [Moles/Vol]13.9 mmol/LFWhite Hospital Basophils Auto (Bld) [#/Vol]on 62-25-5664Npezngzog (Bld) [#/Vol]0.0 10 3/uL 0.0-0.1FWhite HospitalBasophils/100 WBC Auto (Bld)on 36-88-9854Xghpkozmf/100 WBC (Bld)0.4 %0.2-2.0[facility] Eosinophils/100 WBC Auto (Bld)on 15-50-0045Edpiuaftbhv/100 WBC (Bld)2.2 %0.9-7.0 [facility] HospitalErythrocyte distribution width Auto (RBC) [Ratio]on 14-77-9896Twsxzyisqhk distribution width (RBC) [Ratio]19.3 %High 11.0-15.0[facility] HospitalEstimated glomerular filtration rate (GFR) non- Americanon 14-16-2494IQY/1.73 sq M.predicted among non-blacks MDRD (S/P/Bld) [Vol rate/Area]41 mL/min/{1.73_m2}Low>=60T[facility]carawas HospitalGlobulin Calc (S) [Mass/Vol]on 47-46-8546Xalrwqol (S) [Mass/Vol] 4.2 g/dLTuscarawas HospitalHematocrit Auto (Bld) [Volume fraction] on 10-86-7583Ypuzwcejfd (Bld) [Volume fraction]26.1 %Low42.0-54.0[facility] HospitalHemoglobin [Mass/volume] in Bloodon 04-14-1201Jrfemqogxd (Bld) [Mass/Vol]7.8 g/dLLow14.0-18.0[facility] HospitalLaboratory - Chemistry and Chemistry - challengeon 83-73-2158Rehvusz [Mass/Vol]2.1 g/dLLow 3.4-5.0[facility] HospitalALP [Catalytic activity/Vol]131 U/LHigh 46-116[facility] HospitalALT [Catalytic activity/Vol]17 U/L16-63 [facility] HospitalAST [Catalytic activity/Vol]13 U/QAvd74-32 [facility] HospitalBilirubin [Mass/Vol]0.3 mg/dL0.2-1.0[facility] HospitalCalcium [Mass/Vol]6.6 mg/dLLow8.5-10.1FWhite HospitalChloride [Moles/Vol]105 mmol/P84-218AqztiapkaTuscarawas HospitalCO2 [Moles/Vol]24.3 mmol/L21.0-32.0[facility] Creatinine [Mass/Vol]1.72 mg/dLHigh0.70-1.30[facility] GFR/1.73 sq M.predicted MDRD (S/P/Bld) [Vol rate/Area]50 mL/min/{1.73_m2}Low>=60 [facility] HospitalGlucose [Mass/Vol]156 mg/gPFafb50-785GufpwvofnTuscarawas HospitalMagnesium [Mass/Vol]1.5 mg/dLLow1.8-2.4FWhite HospitalPotassium [Moles/Vol]4.0 mmol/L3.5-5.1FWhite HospitalProtein [Mass/Vol]6.3 g/dLLow6.4-8.2FWhite Hospital Sodium [Moles/Vol]139 mmol/F553-902JdtdwpmhjTuscarawas HospitalUrea nitrogen [Mass/Vol]27.0 mg/dLHigh7.0-18.0[facility] HospitalUrea nitrogen/Creatinine [Mass ratio]15.7 mg/mgTuscarawas Hospital Laboratory - Hematology and Cell countson 02-88-0149Tcjabmky granulocytes/100 WBC (Bld)0.4 %0.0-0.5FWhite HospitalESR (Bld) [Velocity]110 mm/hHigh<=20[facility] HospitalLaboratory - Microbiology and Antimicrobial susceptibilityOrdered By: Truman Bryant on 56-12-8945Gzcjceaxhei observation Gram stain Nom (Unsp spec)[facility] Leukocytes [#/volume] corrected for nucleated erythrocytes in Blood by Automated counon 49-23-0202MWK corrected for nucl RBC Auto (Bld) [#/Vol]8.5 10 3/uL 4.0-11.0[facility] HospitalLymphocytes Auto (Bld) [#/Vol]on 06-49-7400Zmciwqaeqmd (Bld) [#/Vol]1.5 10 3/uL1.2-3.8[facility] HospitalLymphocytes/100 WBC Auto (Bld)on 49-78-5097Pdaykxvhorl/100 WBC (Bld)17.3 % Low20.5-60.0[facility] HospitalMC Auto (RBC) [Entitic mass]on 55-87-4237NIK (RBC) [Entitic mass]22.5 pgLow25.9-34.0[facility] HospitalMCHC Auto (RBC) [Mass/Vol]on 22-99-0759RJZR (RBC) [Mass/Vol]29.9 g/dL 29.9-35.2FWhite HospitalMCV Auto (RBC) [Entitic vol]on 42-51-7273ZUA (RBC) [Entitic vol]75.2 fLLow80.0-94.0[facility] HospitalMonocytes Auto (Bld) [#/Vol]on 55-52-8234Bdiagzenr (Bld) [#/Vol]0.8 10 3/uL0.3-0.8[facility] HospitalMonocytes/100 WBC Auto (Bld)on 82-57-1196Afepyxucu/100 WBC (Bld)9.1 %1.7-12.0[facility] Neutrophils Auto (Bld) [#/Vol]on 38-36-8451Lusgzygkaip (Bld) [#/Vol]6.0 10 3/uL 1.4-6.5FWhite HospitalNeutrophils/100 WBC Auto (Bld)on 00-07-1739Kggersjasyu/100 WBC (Bld)70.6 %43.0-75.0[facility] HospitalNo Panel Informationon 72-52-8026Inuhblehymg # (Auto)0.2 10 3/uL0.0-0.7 [facility] HospitalImmature Granulocyte # (Auto)0.03 10 3/uL 0.00-0.03[facility] HospitalFungal Smear ResultTuscarawas HospitalMiscellaneous Test CommentSee commentTuscarawas HospitalComment on above:Specimen Source: FOOTRT - Foot Right - Foot Rt - 604.000 No Panel InformationOrdered By: Truman Bryant on 85-94-3945Tqdnnj CultureTuscarawas HospitalNo Panel InformationOrdered By: Paula Soto on 09-20-0593Ulth Fast SmearTuscarawas HospitalAFB Specimen ProcessingTuscarawas HospitalPlatelet mean volume Auto (Bld) [Entitic vol]on 67-14-2403Kphrjqmb mean volume (Bld) [Entitic vol]10.6 fL 9.5-13.5FWhite HospitalPlatelets Auto (Bld) [#/Vol]on 62-76-6252Jatjochfj (Bld) [#/Vol]142 10 3/eHHvd060-975FvevwidlbTuscarawas HospitalRBC Auto (Bld) [#/Vol]on 82-19-1425PEV (Bld) [#/Vol]3.47 10 6/uLLow 4.70-6.10[facility], Beachwooderum or plasma albumin/globulin mass ratioon 01-78-7276Dhqfpyk/Globulin [Mass ratio]0.5 {ratio}[facility], Beachwooderum or plasma anion gap determinationon 38-33-6519Behrw gap [Moles/Vol]13.7 mmol/LFWhite HospitalBasophils Auto (Bld) [#/Vol]on 24-08-5635Jaonzikza (Bld) [#/Vol]0.0 10 3/uL0.0-0.1FWhite HospitalBasophils/100 WBC Auto (Bld)on 38-44-6378Cannyimio/100 WBC (Bld) 0.4 %0.2-2.0[facility]as HospitalEosinophils/100 WBC Auto (Bld)on 09-85-1984Pjdxcxmayvu/100 WBC (Bld)1.7 %0.9-7.0[facility] Erythrocyte distribution width Auto (RBC) [Ratio]on 32-04-5717Kenjkkzgjei distribution width (RBC) [Ratio]18.5 %High11.0-15.0T[facility] HospitalEstimated glomerular filtration rate (GFR) non- Americanon 34-83-4868NUW/1.73 sq M.predicted among non-blacks MDRD (S/P/Bld) [Vol rate/Area]27 mL/min/{1.73_m2}Low>=60Tuscarawas HospitalGlobulin Calc (S) [Mass/Vol]on 24-49-2537Aizumczg (S) [Mass/Vol]4.0 g/dLTuscarawas HospitalHematocrit Auto (Bld) [Volume fraction]on 10-01-2023 Hematocrit (Bld) [Volume fraction]26.5 %Low42.0-54.0T[facility]as HospitalHemoglobin [Mass/volume] in Bloodon 93-96-2992Ucrbckajqd (Bld) [Mass/Vol] 8.0 g/dLLow14.0-18.0[facility] HospitalLaboratory - Chemistry and Chemistry - challengeon 34-59-2192Tyjrrpg [Moles/Vol]1.8 mmol/L0.4-2.0[facility] HospitalAlbumin [Mass/Vol]1.9 g/dLLow3.4-5.0[facility] HospitalALP [Catalytic activity/Vol]113 U/T66-005LjkdpzwxcTuscarawas HospitalALT [Catalytic activity/Vol]17 U/U55-32TbcdchlgbTuscarawas HospitalAST [Catalytic activity/Vol]14 U/UZcl51-01JoynbpdwyTuscarawas HospitalBilirubin [Mass/Vol]0.3 mg/dL0.2-1.0[facility] Calcium [Mass/Vol]5.7 mg/dLLow8.5-10.1FWhite HospitalComment on above:RESULTS CALLED TO Moncho Tsang)@BY Marybel Hawkins MLT at 0619 Chloride [Moles/Vol]102 mmol/P14-922EpjmcstupTuscarawas HospitalCO2 [Moles/Vol]20.4 mmol/LLow21.0-32.0T[facility] HospitalCreatinine [Mass/Vol]2.46 mg/dLHigh0.70-1.30T[facility]awas HospitalGFR/1.73 sq M.predicted MDRD (S/P/Bld) [Vol rate/Area]33 mL/min/{1.73_m2}Low>=60T[facility]awas HospitalGlucose [Mass/Vol]67 mg/sFBdp82-661EpmjbvvuiTuscarawas HospitalMagnesium [Mass/Vol]0.8 mg/dLLow1.8-2.4FWhite HospitalComment on above:RESULTS CALLED TO Moncho CORREA)@BY SOFIYA Way at 0601Potassium [Moles/Vol]3.1 mmol/LLow3.5-5.1FWhite HospitalProtein [Mass/Vol]5.9 g/dLLow6.4-8.2FSelect Medical Specialty Hospital - Cincinnati Northodium [Moles/Vol]138 mmol/L880-615EilzuyggdTuscarawas HospitalUrea nitrogen [Mass/Vol]28.0 mg/dLHigh7.0-18.0T[facility] HospitalUrea nitrogen/Creatinine [Mass ratio]11.4 mg/mgTuscarawas HospitalLaboratory - Hematology and Cell countson 47-53-2423ELR (Bld) [Velocity]96 mm/hHigh<=20Tuscarawas HospitalImmature granulocytes/100 WBC (Bld)0.6 %High0.0-0.5FWhite HospitalLeukocytes [#/volume] corrected for nucleated erythrocytes in Blood by Automated counon 30-98-0449IEL corrected for nucl RBC Auto (Bld) [#/Vol]10.0 10 3/uL4.0-11.0T[facility]awas HospitalLymphocytes Auto (Bld) [#/Vol]on 44-22-5664Ddbtfuevmno (Bld) [#/Vol]1.3 10 3/uL1.2-3.8T[facility]carawas HospitalLymphocytes/100 WBC Auto (Bld)on 87-70-7309Wfvantjgrjx/100 WBC (Bld)12.8 %Low20.5-60.0[facility] HospitalH Auto (RBC) [Entitic mass]on 07-43-3708KCS (RBC) [Entitic mass]22.4 pgLow25.9-34.0T[facility] HospitalMCHC Auto (RBC) [Mass/Vol]on 24-56-8632MXQZ (RBC) [Mass/Vol]30.2 g/dL29.9-35.2FWhite HospitalMCV Auto (RBC) [Entitic vol]on 10-35-6806ASK (RBC) [Entitic vol]74.2 fLLow80.0-94.0T[facility] HospitalMonocytes Auto (Bld) [#/Vol]on 33-57-8517Gqtkahekx (Bld) [#/Vol]0.7 10 3/uL0.3-0.8T[facility]awas HospitalMonocytes/100 WBC Auto (Bld)on 04-54-0923Muggjcont/100 WBC (Bld)6.9 %1.7-12.0T[facility]as HospitalNeutrophils Auto (Bld) [#/Vol]on 39-88-1123Zbbmcgitdsm (Bld) [#/Vol]7.8 10 3/uLHigh1.4-6.5FWhite HospitalNeutrophils/100 WBC Auto (Bld)on 10-01-2023 Neutrophils/100 WBC (Bld)77.6 %High43.0-75.0[facility] HospitalNo Panel Informationon 58-64-3162L-Reactive Protein, Pqxyslvkfmcq59.58 mg/dLHigh <=0.50T[facility]carawas HospitalEosinophils # (Auto)0.2 10 3/uL0.0-0.7 [facility] HospitalImmature Granulocyte # (Auto)0.06 10 3/uLHigh 0.00-0.03T[facility]as HospitalTroponin I High Sensitivity8.3 pg/mL 4.0-76.1FWhite HospitalComment on above:CUT-OFF POINTS HAVE BEEN ESTABLISHED BASED ON THE FOURTHUNIVERSAL DEFINITION OF MYOCARDIAL INFARCTIO N. THE UPPERREFERENCE LIMIT (URL) OF TROPONIN, DEFINED THE 99THPERCENTILE OF cTnI DISTRIBUTION IN A REFERENCE POPULATION,HAS BEEN CONFIRMED THE DECISION THRESHOLD FOR MIDIAGNOSIS.99TH PERCENTILE = 76.2 PG/MLNOTE: HIGH-SENSITIVITY TROPONIN ASSAY IS NOT INTENDED TO BEUSED IN ISOLATION BUT SHOULD BE INTERPRETED IN CONJUNCTIONWITH OTHER DIAGNOSTIC AND CLINICAL INFORMATION.Venous Blood Partial Pressure CO230.4 mm[Hg]Low40.0-52.0[facility] Venous Blood pH7.4217.330-7.430Tuscarawas HospitalPlatelet mean volume Auto (Bld) [Entitic vol]on 20-10-5791Jcuabopd mean volume (Bld) [Entitic vol]11.2 fL9.5-13.5FWhite HospitalPlatelets Auto (Bld) [#/Vol] on 68-88-2055Keajzlpsn (Bld) [#/Vol]164 10 3/pH327-479BnynsvbjwTuscarawas HospitalRBC Auto (Bld) [#/Vol]on 36-80-0163GOV (Bld) [#/Vol]3.57 10 6/uLLow 4.70-6.10[facility], Beachwooderum or plasma albumin/globulin mass ratioon 31-93-0132Nzbbsas/Globulin [Mass ratio]0.5 {ratio}[facility], Beachwooderum or plasma anion gap determinationon 78-98-4412Zaihk gap [Moles/Vol]18.7 mmol/LFWhite HospitalAutomated epithelial cells count in urine sediment (number/area)on 70-65-0780Bbejxbummk cells Auto (Urine sed) [#/Area]NONE SEEN #/LPFNONE/RARETuscarawas Hospital Automated leukocytes count in urine sediment (number/area)on 43-06-1250FRY Auto (Urine sed) [#/Area]NONE SEEN #/HPF0-2FWhite HospitalAutomated urine specific gravity by refractometryon 41-58-8730Mldppcac gravity Refractometry automated (U) [Rel density]<=1.722Wlasgijp2.005-1.025Tuscarawas HospitalBasophils Auto (Bld) [#/Vol]on 37-59-2261Puranrawb (Bld) [#/Vol]0.1 10 3/uL0.0-0.1FWhite HospitalBasophils/100 WBC Auto (Bld)on 59-77-2575Twqiqrssn/100 WBC (Bld)0.4 %0.2-2.0T[facility] HospitalBilirubin Auto test strip (U) [Mass/Vol]on 92-89-1904Sccgrdlkw (U) [Mass/Vol]NegativeNEGATIVETuscarawas HospitalCast typing in urine sediment by light microscopyon 39-87-0082Zbrrj LM Nom (Urine sed)NONE SEEN #/LPFNONE SEENTuscarawas HospitalColor Auto (U)on 38-90-7616Oxmjj (U)LT. YELLOWYELLOWTuscarawas HospitalEosinophils/100 WBC Auto (Bld)on 64-87-3295Xkngrnfcxtx/100 WBC (Bld)1.4 %0.9-7.0T[facility] HospitalErythrocyte distribution width Auto (RBC) [Ratio]on 09-30-2023 Erythrocyte distribution width (RBC) [Ratio]19.0 %High11.0-15.0[facility] HospitalEstimated glomerular filtration rate (GFR) non- Americanon 74-94-9850WWU/1.73 sq M.predicted among non-blacks MDRD (S/P/Bld) [Vol rate/Area]19 mL/min/{1.73_m2}Low>=60[facility] Globulin Calc (S) [Mass/Vol]on 64-52-6406Azbjwzjo (S) [Mass/Vol]4.8 g/dL [facility] HospitalHematocrit Auto (Bld) [Volume fraction]on 90-45-0123Qsnbiggiug (Bld) [Volume fraction]32.9 %Low42.0-54.0[facility] HospitalHemoglobin [Mass/volume] in Bloodon 35-75-3622Akoxclhutv (Bld) [Mass/Vol]10.0 g/dLLow14.0-18.0T[facility]awas HospitalINR in Platelet poor plasma by Coagulation assayon 11-69-7719KWO Coag (PPP) [Relative time]1.23 {INR}[facility] HospitalComment on above:DESIRED INR:2.0-3.0 CONDITIONS NOT LISTED BELOW2.5-3.5 FOR PROSTHETIC HEART VALVE REPLACEMENT2.5-3.5 RECURRENT THROMBOSISKetones Auto test strip (U) [Mass/Vol]on 31-89-0762Unbywik (U) [Mass/Vol]NegativeNEGATIVETuscarawas HospitalLaboratory - Chemistry and Chemistry - challengeon 88-21-7439Qucderu [Moles/Vol]4.2 mmol/L High0.4-2.0T[facility]as HospitalComment on above:RESULTS CALLED TO Moncho CORREA)@BY [address] at 2312Albumin [Mass/Vol]2.4 g/dL Low3.4-5.0[facility] HospitalALP [Catalytic activity/Vol]145 U/L Hcwb26-123OxuyaidcxTuscarawas HospitalALT [Catalytic activity/Vol]17 U/L 16-63T[facility] HospitalAST [Catalytic activity/Vol]21 U/L15-37 [facility] HospitalBilirubin [Mass/Vol]0.4 mg/dL0.2-1.0[facility] HospitalCalcium [Mass/Vol]5.8 mg/dLLow8.5-10.1FWhite HospitalComment on above:RESULTS CALLED TO CHANDRIKA CASTANON @BY Verona Hanson at 1645Chloride [Moles/Vol]97 mmol/SLmy27-915CrgqtyoaeTuscarawas Hospital CO2 [Moles/Vol]18.3 mmol/LLow21.0-32.0[facility] Creatinine [Mass/Vol]3.43 mg/dLHigh0.70-1.30[facility] GFR/1.73 sq M.predicted MDRD (S/P/Bld) [Vol rate/Area]22 mL/min/{1.73_m2}Low>=60 [facility] HospitalGlucose [Mass/Vol]208 mg/nYUggp34-831EoxijdxxbTuscarawas HospitalMagnesium [Mass/Vol]0.5 mg/dLLow1.8-2.4FWhite HospitalComment on above:RESULTS CALLED TO Chandrika Castanon @BY Marybel Hawkins, FLAKER OPERATOR mi0640Sygldgtlusn peptide B (Bld) [Mass/Vol]611.0 pg/mL<=900.0 [facility] HospitalPotassium [Moles/Vol]3.9 mmol/L3.5-5.1FWhite HospitalProtein [Mass/Vol]7.2 g/dL6.4-8.2FSelect Medical Specialty Hospital - Cincinnati Northodium [Moles/Vol]137 mmol/K811-131NsaglfraeTuscarawas HospitalUrea nitrogen [Mass/Vol]34.0 mg/dLHigh7.0-18.0[facility] HospitalUrea nitrogen/Creatinine [Mass ratio]9.9 mg/mgTuscarawas HospitalLaboratory - Hematology and Cell countson 50-68-6259XNW (Bld) [Velocity] 130 mm/hHigh<=20T[facility]as HospitalImmature granulocytes/100 WBC (Bld)0.6 %High0.0-0.5FWhite HospitalLeukocytes [#/volume] corrected for nucleated erythrocytes in Blood by Automated counon 08-70-8017DMG corrected for nucl RBC Auto (Bld) [#/Vol]13.9 10 3/uLHigh4.0-11.0[facility] HospitalLymphocytes Auto (Bld) [#/Vol]on 33-99-2799Tphrjlcnaap (Bld) [#/Vol]1.4 10 3/uL1.2-3.8T[facility]as HospitalLymphocytes/100 WBC Auto (Bld)on 68-61-4782Aydmbyyyeyb/100 WBC (Bld)10.1 %Low20.5-60.0[facility] HospitalH Auto (RBC) [Entitic mass]on 41-65-7083MOA (RBC) [Entitic mass]22.7 pgLow25.9-34.0[facility] HospitalMCHC Auto (RBC) [Mass/Vol]on 88-75-6803FPLO (RBC) [Mass/Vol]30.4 g/dL29.9-35.2FWhite HospitalMCV Auto (RBC) [Entitic vol]on 54-54-8054KQJ (RBC) [Entitic vol]74.6 fLLow80.0-94.0[facility] HospitalMonocytes Auto (Bld) [#/Vol]on 87-68-6690Ptnbxxhfa (Bld) [#/Vol]0.9 10 3/uLHigh0.3-0.8[facility] HospitalMonocytes/100 WBC Auto (Bld)on 33-49-4779Zqgntzfva/100 WBC (Bld)6.7 %1.7-12.0[facility] HospitalMucus LM Ql (Urine sed)on 43-65-4277Ornyl Ql (Urine sed)NONE SEENNONE SEENTuscarawas HospitalNeutrophils Auto (Bld) [#/Vol]on 55-52-6932Mnodcwdleyo (Bld) [#/Vol]11.2 10 3/uLHigh1.4-6.5FWhite HospitalNeutrophils/100 WBC Auto (Bld)on 13-45-2490Vcwnwguhccy/100 WBC (Bld)80.8 %High43.0-75.0[facility] HospitalNo Panel Informationon 06-39-8507Wvmuifma I High Sensitivity7.9 pg/mL4.0-76.1FWhite HospitalComment on above:CUT-OFF POINTS HAVE BEEN ESTABLISHED BASED ON THE FOURTHUNIVERSAL DEFINITION OF MYOCARDIAL INFARCTION. THE UPPERREFERENCE LIMIT (URL) OF TROPONIN, DEFINED THE 99THPERCENTILE OF cTnI DISTRIBUTION IN A REFERENCE POPULATION,HAS BEEN CONFIRMED THE DECISION THRESHOLD FOR MIDIAGNOSIS.99TH PERCENTILE = 76.2 PG/MLNOTE: HIGH-SENSITIVITY TROPONIN ASSAY IS NOT INTENDED TO BEUSED IN ISOLATION BUT SHOULD BE INTERPRETED IN CONJUNCTIONWITH OTHER DIAGNOSTIC AND CLINICAL INFORMATION.Venous Blood Partial Pressure CO229.6 mm[Hg]Low40.0-52.0T[facility] HospitalVenous Blood pH7.4057.330-7.430Tuscarawas HospitalUrine Culture ReflexedNOTuscarawas HospitalC-Reactive Protein, Wwamlioqoype28.76 mg/dLHigh<=0.50[facility] Eosinophils # (Auto)0.2 10 3/uL0.0-0.7FWhite HospitalImmature Granulocyte # (Auto)0.09 10 3/uLHigh0.00-0.03[facility] HospitalNo Panel InformationOrdered By: Chandrika Castanon on 42-52-3986Uvrcd Culture 2FWhite HospitalWound CultureTuscarawas HospitalBlood Culture 1FWhite HospitalPlatelet mean volume Auto (Bld) [Entitic vol]on 62-21-0578Sexvhnvr mean volume (Bld) [Entitic vol]10.9 fL 9.5-13.5FWhite HospitalPlatelets Auto (Bld) [#/Vol]on 77-23-6319Yrcwiqjnc (Bld) [#/Vol]227 10 3/sM151-650UluezcvpxTuscarawas HospitalProtein Auto test strip (U) [Mass/Vol]on 64-21-4270Wtoqlgl (U) [Mass/Vol] NegativeNEG/TRACETuscarawas HospitalProthrombin time (PT)on 22-10-4964ST Coag (PPP) [Time]12.9 sHigh9.0-11.6FWhite HospitalRBC Auto (Bld) [#/Vol]on 02-85-5709GWP (Bld) [#/Vol]4.41 10 6/uLLow 4.70-6.10[facility], Beachwooderum or plasma albumin/globulin mass ratioon 12-45-8772Wvfzbyh/Globulin [Mass ratio]0.5 {ratio}[facility], Beachwooderum or plasma anion gap determinationon 48-50-5436Ixmfw gap [Moles/Vol]25.6 mmol/LFSelect Medical Specialty Hospital - Cincinnati Northpecific gravity Auto test strip (U) [Rel density]on 41-74-5173Hkbolrtb gravity (U) [Rel density]CLEAR CLEARTuscarawas HospitalUrine bacteria detection by automated methodon 04-81-7103Nocdpiai Auto Ql (U)NONE SEEN #/HPFNONE [facility] HospitalUrine glucose measurement by test strip (mass/volume)on 36-47-3202Nluqvmb Test strip (U) [Mass/Vol]500 mg/dLAbnormalNEGPeoples HospitalUrine hemoglobin detection by automated test stripon 89-78-4806Ivvucckpng Auto test strip Ql (U)TRACE-INEGATIVETuscarawas HospitalUrine nitrite detection by automated test stripon 09-30-2023 Nitrite Auto test strip Ql (U)NegativeNEGPeoples Hospital Urine sediment crystal identification by light microscopyon 03-34-3777Vuzyhzqk LM Nom (Urine sed)None Seen #/HPFNone [facility] HospitalUrine sediment leukocyte count by microscopy (number/high power field)on 09-30-2023 WBC LM.HPF (Urine sed) [#/Area]NONE SEEN #/HPFNONE [facility] HospitalUrobilinogen Auto test strip (U) [Mass/Vol]on 09-30-2023 Urobilinogen Qn (U)0.2 {Brendan'U}/dL0.2-1.0T[facility] HospitalpH Auto test strip (U)on 99-40-3578vG (U)5.5 [pH]5.0-9.0[facility] HospitalLaboratory - Microbiology and Antimicrobial susceptibilityOrdered By: Teresa Lynch on 73-47-1537Mlbhsxtdcch observation Gram stain Nom (Unsp spec) [facility] HospitalActivated partial thromboplastin time (aPTT) in platelet poor plasma by coagulation aon 64-13-4494tMRP Coag (PPP) [Time]32.0 s 22.3-36.2FWhite HospitalBasophils Auto (Bld) [#/Vol]on 32-82-3215Sqhvbxorm (Bld) [#/Vol]0.1 10 3/uL0.0-0.1FWhite HospitalBasophils/100 WBC Auto (Bld)on 75-52-0414Vecvyoupl/100 WBC (Bld)0.9 % 0.2-2.0[facility] HospitalEosinophils/100 WBC Auto (Bld)on 28-36-8586Jljyhgeiece/100 WBC (Bld)2.3 %0.9-7.0[facility] Erythrocyte distribution width Auto (RBC) [Ratio]on 60-58-4736Gilrzftwdbt distribution width (RBC) [Ratio]18.8 %High11.0-15.0[facility] HospitalEstimated glomerular filtration rate (GFR) non- Americanon 73-10-9608XNH/1.73 sq M.predicted among non-blacks MDRD (S/P/Bld) [Vol rate/Area]27 mL/min/{1.73_m2}Low>=60T[facility]carawas HospitalHematocrit Auto (Bld) [Volume fraction]on 32-86-6195Zdjcwratev (Bld) [Volume fraction]35.0 %Low42.0-54.0[facility] HospitalHemoglobin [Mass/volume] in Blood on 21-32-7246Vsjbtcsjlr (Bld) [Mass/Vol]10.3 g/dLLow14.0-18.0T[facility]awas HospitalINR in Platelet poor plasma by Coagulation assayon 02-57-4278DSQ Coag (PPP) [Relative time]1.08 {INR}[facility] HospitalComment on above:DESIRED INR:2.0-3.0 CONDITIONS NOT LISTED BELOW2.5-3.5 FOR PROSTHETIC HEART VALVE REPLACEMENT2.5-3.5 RECURRENT THROMBOSISLaboratory - Chemistry and Chemistry - challengeon 89-07-9503Kqszhbe [Mass/Vol]8.9 mg/dL8.5-10.1FWhite HospitalChloride [Moles/Vol]97 mmol/EUxq00-329TitdzgldeTuscarawas HospitalCO2 [Moles/Vol]28.2 mmol/L21.0-32.0[facility] HospitalCreatinine [Mass/Vol]2.47 mg/dLHigh0.70-1.30T[facility] HospitalGFR/1.73 sq M.predicted MDRD (S/P/Bld) [Vol rate/Area]33 mL/min/{1.73_m2} Low>=60T[facility]carawas HospitalGlucose [Mass/Vol]200 mg/xEClco52-714 [facility] HospitalPotassium [Moles/Vol]3.7 mmol/L3.5-5.1FSelect Medical Specialty Hospital - Cincinnati Northodium [Moles/Vol]137 mmol/C991-626BvvmpcoxgTuscarawas HospitalUrea nitrogen [Mass/Vol]23.0 mg/dLHigh7.0-18.0[facility] HospitalUrea nitrogen/Creatinine [Mass ratio]9.3 mg/mgTuscarawas HospitalLaboratory - Hematology and Cell countson 56-23-9674Pvxzrlgs granulocytes/100 WBC (Bld)0.6 %High0.0-0.5FWhite Hospital Leukocytes [#/volume] corrected for nucleated erythrocytes in Blood by Automated counon 03-77-6627VHT corrected for nucl RBC Auto (Bld) [#/Vol]12.4 10 3/uLHigh 4.0-11.0[facility] HospitalLymphocytes Auto (Bld) [#/Vol]on 75-43-2584Zykbzfjwgxg (Bld) [#/Vol]2.4 10 3/uL1.2-3.8T[facility]as HospitalLymphocytes/100 WBC Auto (Bld)on 47-32-0222Pfpbzfajogz/100 WBC (Bld)19.6 % Low20.5-60.0[facility] HospitalH Auto (RBC) [Entitic mass]on 86-48-8120JCI (RBC) [Entitic mass]22.2 pgLow25.9-34.0[facility] HospitalMCHC Auto (RBC) [Mass/Vol]on 34-92-9607XLJA (RBC) [Mass/Vol]29.4 g/dLLow 29.9-35.2FWhite HospitalMCV Auto (RBC) [Entitic vol]on 09-15-0951IHS (RBC) [Entitic vol]75.3 fLLow80.0-94.0[facility] HospitalMonocytes Auto (Bld) [#/Vol]on 8451Hgbqihdlp (Bld) [#/Vol]1.2 10 3/uLHigh0.3-0.8T[facility] HospitalMonocytes/100 WBC Auto (Bld)on 42-35-5263Qnlmclpuq/100 WBC (Bld)10.0 %1.7-12.0[facility] Neutrophils Auto (Bld) [#/Vol]on 25-38-7340Bpvopaiywsm (Bld) [#/Vol]8.2 10 3/uL High1.4-6.5FWhite HospitalNeutrophils/100 WBC Auto (Bld)on 24-17-1529Vdejubyfafr/100 WBC (Bld)66.6 %43.0-75.0[facility] HospitalNo Panel Informationon 32-88-6191Wrdthlyalzu # (Auto)0.3 10 3/uL0.0-0.7 [facility] HospitalImmature Granulocyte # (Auto)0.07 10 3/uLHigh 0.00-0.03T[facility]as HospitalPlatelet mean volume Auto (Bld) [Entitic vol]on 83-36-1007Hogcgejm mean volume (Bld) [Entitic vol]10.9 fL 9.5-13.5FWhite HospitalPlatelets Auto (Bld) [#/Vol]on 70-30-9213Rzhyepdzi (Bld) [#/Vol]300 10 3/qN713-470SwyfdbrnrTuscarawas HospitalProthrombin time (PT)on 62-24-0862SC Coag (PPP) [Time]11.4 s9.0-11.6 [facility] HospitalRBC Auto (Bld) [#/Vol]on 55-04-0349WGF (Bld) [#/Vol]4.65 10 6/uLLow4.70-6.10[facility], Beachwooderum or plasma anion gap determinationon 31-34-0125Qrmin gap [Moles/Vol]15.5 mmol/LFWhite HospitalLaboratory - Microbiology and Antimicrobial susceptibilityOrdered By: Teresa Lynch on 25-15-3667Qlzrykyzkhr observation Gram stain Nom (Unsp spec)[facility] HospitalNo Panel Informationon 16-07-9433Rpooxx Smear ResultTuscarawas HospitalMiscellaneous Test CommentSee commentTuscarawas HospitalComment on above:Specimen Source: FOOTRT - Foot Right - Foot Rt - 604.000No Panel InformationOrdered By: Teresa Lynch on 80-55-6962Vhba Fast CultureTuscarawas HospitalAcid Fast SmearTuscarawas HospitalAFB Specimen ProcessingTuscarawas HospitalTissue CultureTuscarawas HospitalBasophils Auto (Bld) [#/Vol]on 71-24-0017Esxuawwhw (Bld) [#/Vol]0.1 10 3/uL0.0-0.1 [facility] HospitalBasophils/100 WBC Auto (Bld)on 08-07-2023 Basophils/100 WBC (Bld)0.7 %0.2-2.0[facility] Eosinophils/100 WBC Auto (Bld)on 10-61-7509Opulnsnpflv/100 WBC (Bld)3.9 %0.9-7.0 [facility] HospitalErythrocyte distribution width Auto (RBC) [Ratio]on 37-35-9776Mkidfsordrt distribution width (RBC) [Ratio]16.9 %11.0-15.0 [facility] HospitalEstimated glomerular filtration rate (GFR) non- Americanon 30-56-7972MXM/1.73 sq M.predicted among non-blacks MDRD (S/P/Bld) [Vol rate/Area]42 mL/min/{1.73_m2}>=60T[facility]carawas HospitalGlobulin Calc (S) [Mass/Vol]on 31-00-1822Tuabxuha (S) [Mass/Vol]4.0 g/dL [facility] HospitalHematocrit Auto (Bld) [Volume fraction]on 76-88-7790Evgourexnf (Bld) [Volume fraction]31.5 %42.0-54.0[facility] HospitalHemoglobin [Mass/volume] in Bloodon 76-58-7014Vdubvpgefq (Bld) [Mass/Vol]9.4 g/dL14.0-18.0[facility] HospitalLaboratory - Chemistry and Chemistry - challengeon 40-53-6465Rddobms [Mass/Vol]2.1 g/dL 3.4-5.0[facility] HospitalALP [Catalytic activity/Vol]144 U/L 46-116T[facility] HospitalALT [Catalytic activity/Vol]21 U/L16-63 [facility] HospitalAST [Catalytic activity/Vol]25 U/L15-37 [facility] HospitalBilirubin [Mass/Vol]0.4 mg/dL0.2-1.0[facility] HospitalCalcium [Mass/Vol]8.1 mg/dL8.5-10.1FWhite HospitalChloride [Moles/Vol]102 mmol/M49-884VbtmrkixgTuscarawas HospitalCO2 [Moles/Vol]24.7 mmol/L21.0-32.0[facility] Creatinine [Mass/Vol]1.70 mg/dL0.70-1.30[facility] GFR/1.73 sq M.predicted MDRD (S/P/Bld) [Vol rate/Area]50 mL/min/{1.73_m2}>=60 [facility] HospitalGlucose [Mass/Vol]188 mg/pQ95-491YgfmlnujfTuscarawas HospitalPotassium [Moles/Vol]4.6 mmol/L3.5-5.1FWhite HospitalProtein [Mass/Vol]6.1 g/dL6.4-8.2FWhite Hospital Sodium [Moles/Vol]135 mmol/V495-785XwmrhqemxTuscarawas HospitalUrea nitrogen [Mass/Vol]33.0 mg/dL7.0-18.0[facility] HospitalUrea nitrogen/Creatinine [Mass ratio]19.4 mg/mgTuscarawas Hospital Laboratory - Hematology and Cell countson 68-11-6398Xepzcdkh granulocytes/100 WBC (Bld)0.7 %0.0-0.5FWhite HospitalLeukocytes [#/volume] corrected for nucleated erythrocytes in Blood by Automated counon 80-57-3799DDW corrected for nucl RBC Auto (Bld) [#/Vol]12.0 10 3/uL4.0-11.0[facility] HospitalLymphocytes Auto (Bld) [#/Vol]on 00-69-1460Hklavilldqd (Bld) [#/Vol]1.5 10 3/uL1.2-3.8[facility] HospitalLymphocytes/100 WBC Auto (Bld)on 00-03-0139Knyjfjjwukv/100 WBC (Bld)12.4 %20.5-60.0[facility] Auto (RBC) [Entitic mass]on 82-21-3188OZX (RBC) [Entitic mass]22.5 pg25.9-34.0[facility] HospitalMCHC Auto (RBC) [Mass/Vol]on 29-69-3999HHPV (RBC) [Mass/Vol]29.8 g/dL29.9-35.2FWhite HospitalMCV Auto (RBC) [Entitic vol]on 44-28-3761JJK (RBC) [Entitic vol] 75.4 fL80.0-94.0[facility] HospitalMonocytes Auto (Bld) [#/Vol]on 22-21-6424Dkssmfsro (Bld) [#/Vol]1.2 10 3/uL0.3-0.8[facility] HospitalMonocytes/100 WBC Auto (Bld)on 88-60-9814Ivvnrrodh/100 WBC (Bld)10.1 % 1.7-12.0[facility] HospitalNeutrophils Auto (Bld) [#/Vol]on 30-56-4734Cbgrajbeuyb (Bld) [#/Vol]8.7 10 3/uL1.4-6.5FWhite HospitalNeutrophils/100 WBC Auto (Bld)on 05-98-9100Zewmaculvas/100 WBC (Bld)72.2 % 43.0-75.0[facility] HospitalNo Panel Informationon 08-07-2023 Eosinophils # (Auto)0.5 10 3/uL0.0-0.7FWhite HospitalImmature Granulocyte # (Auto)0.09 10 3/uL0.00-0.03[facility] Platelet mean volume Auto (Bld) [Entitic vol]on 57-69-9148Ovyjqxtp mean volume (Bld) [Entitic vol]11.7 fL9.5-13.5FWhite HospitalPlatelets Auto (Bld) [#/Vol]on 19-48-4618Ajuhpxqpj (Bld) [#/Vol]222 10 3/lP487-348 [facility] HospitalRBC Auto (Bld) [#/Vol]on 37-55-7106OLW (Bld) [#/Vol]4.18 10 6/uL4.70-6.10[facility] [place]wooderum or plasma albumin/globulin mass ratioon 79-65-1638Ynlvdgu/Globulin [Mass ratio]0.5 {ratio} [facility] [place]wooderum or plasma anion gap determinationon 28-61-4416Chqhy gap [Moles/Vol]12.9 mmol/LFWhite Hospital Basophils Auto (Bld) [#/Vol]on 02-91-6159Ezgjhlort (Bld) [#/Vol]0.1 10 3/uL 0.0-0.1FWhite HospitalBasophils/100 WBC Auto (Bld)on 56-62-5439Frpubpbzx/100 WBC (Bld)0.7 %0.2-2.0[facility] Eosinophils/100 WBC Auto (Bld)on 95-26-0873Qcoerfpaqoa/100 WBC (Bld)3.3 %0.9-7.0 [facility] HospitalErythrocyte distribution width Auto (RBC) [Ratio]on 07-22-1016Eubthljhytm distribution width (RBC) [Ratio]17.0 %11.0-15.0 [facility] HospitalEstimated glomerular filtration rate (GFR) non- Americanon 23-72-7798NAE/1.73 sq M.predicted among non-blacks MDRD (S/P/Bld) [Vol rate/Area]36 mL/min/{1.73_m2}>=60[facility] HospitalGlobulin Calc (S) [Mass/Vol]on 26-93-9848Bkbaisfw (S) [Mass/Vol]4.0 g/dL [facility] HospitalHematocrit Auto (Bld) [Volume fraction]on 64-87-4392Lbvnxlolfb (Bld) [Volume fraction]30.1 %42.0-54.0[facility] HospitalHemoglobin [Mass/volume] in Bloodon 56-74-0338Qodoockirk (Bld) [Mass/Vol]8.8 g/dL14.0-18.0[facility] HospitalLaboratory - Chemistry and Chemistry - challengeon 86-37-1494Cmnqjae [Mass/Vol]2.0 g/dL 3.4-5.0[facility] HospitalALP [Catalytic activity/Vol]127 U/L 46-116[facility] HospitalALT [Catalytic activity/Vol]14 U/L16-63 [facility]AST [Catalytic activity/Vol]16 U/L15-37 [facility] HospitalBilirubin [Mass/Vol]0.4 mg/dL0.2-1.0[facility] HospitalCalcium [Mass/Vol]7.9 mg/dL8.5-10.1FWhite HospitalChloride [Moles/Vol]99 mmol/I02-493YkzyfhlueTuscarawas HospitalCO2 [Moles/Vol]25.0 mmol/L21.0-32.0[facility] Creatinine [Mass/Vol]1.95 mg/dL0.70-1.30[facility] GFR/1.73 sq M.predicted MDRD (S/P/Bld) [Vol rate/Area]43 mL/min/{1.73_m2}>=60 [facility] HospitalGlucose [Mass/Vol]297 mg/nE49-235CshwkzrjtTuscarawas HospitalPotassium [Moles/Vol]4.4 mmol/L3.5-5.1FWhite HospitalProtein [Mass/Vol]6.0 g/dL6.4-8.2FWhite Hospital Sodium [Moles/Vol]133 mmol/A367-560DmdvbobwiTuscarawas HospitalUrea nitrogen [Mass/Vol]28.0 mg/dL7.0-18.0[facility] HospitalUrea nitrogen/Creatinine [Mass ratio]14.4 mg/mgTuscarawas Hospital Laboratory - Hematology and Cell countson 59-42-6364Kqtcmrcc granulocytes/100 WBC (Bld)0.4 %0.0-0.5FWhite HospitalLeukocytes [#/volume] corrected for nucleated erythrocytes in Blood by Automated counon 96-19-2389GCO corrected for nucl RBC Auto (Bld) [#/Vol]10.1 10 3/uL4.0-11.0[facility] HospitalLymphocytes Auto (Bld) [#/Vol]on 80-60-9014Hsnmnzedzqi (Bld) [#/Vol]1.5 10 3/uL1.2-3.8[facility] HospitalLymphocytes/100 WBC Auto (Bld)on 37-13-2551Rkysyzqpipt/100 WBC (Bld)14.4 %20.5-60.0[facility] HospitalMCH Auto (RBC) [Entitic mass]on 45-73-4912RMB (RBC) [Entitic mass]22.5 pg25.9-34.0[facility] HospitalMCHC Auto (RBC) [Mass/Vol]on 03-94-4584XBEA (RBC) [Mass/Vol]29.2 g/dL29.9-35.2FWhite HospitalMCV Auto (RBC) [Entitic vol]on 65-99-8688MHR (RBC) [Entitic vol] 77.0 fL80.0-94.0[facility] HospitalMonocytes Auto (Bld) [#/Vol]on 22-62-0127Jquofredw (Bld) [#/Vol]1.1 10 3/uL0.3-0.8[facility] HospitalMonocytes/100 WBC Auto (Bld)on 70-34-8672Uxqalqwdm/100 WBC (Bld)10.4 % 1.7-12.0[facility] HospitalNeutrophils Auto (Bld) [#/Vol]on 01-24-3263Epehqbiltzs (Bld) [#/Vol]7.2 10 3/uL1.4-6.5FWhite HospitalNeutrophils/100 WBC Auto (Bld)on 08-92-6020Tktfyhpajir/100 WBC (Bld)70.8 % 43.0-75.0[facility] HospitalNo Panel Informationon 08-06-2023 Vancomycin Level Jfbjvb20.6 ug/mL5.0-20.0[facility] Eosinophils # (Auto)0.3 10 3/uL0.0-0.7FWhite HospitalImmature Granulocyte # (Auto)0.04 10 3/uL0.00-0.03[facility] Platelet mean volume Auto (Bld) [Entitic vol]on 90-63-0924Nnlqnyrz mean volume (Bld) [Entitic vol]12.2 fL9.5-13.5FWhite HospitalPlatelets Auto (Bld) [#/Vol]on 80-58-0433Utfahvbpm (Bld) [#/Vol]190 10 3/vD642-984 [facility] HospitalRBC Auto (Bld) [#/Vol]on 35-70-7632NAT (Bld) [#/Vol]3.91 10 6/uL4.70-6.10[facility], Beachwooderum or plasma albumin/globulin mass ratioon 01-04-1353Iowgmlj/Globulin [Mass ratio]0.5 {ratio} [facility] CenterSerum or plasma anion gap determinationon 65-08-4062Vgvrt gap [Moles/Vol]13.4 mmol/LFWhite Hospital Automated epithelial cells count in urine sediment (number/area)on 08-05-2023 Epithelial cells Auto (Urine sed) [#/Area]RARE #/LPFNONE/RARETuscarawas HospitalAutomated leukocytes count in urine sediment (number/area)on 80-80-0647HOO Auto (Urine sed) [#/Area]NONE SEEN #/HPF0-2FWhite HospitalAutomated urine specific gravity by refractometryon 08-05-2023 Specific gravity Refractometry automated (U) [Rel density]<=1.0051.005-1.025 [facility] HospitalBasophils Auto (Bld) [#/Vol]on 08-05-2023 Basophils (Bld) [#/Vol]0.1 10 3/uL0.0-0.1FWhite Hospital Basophils/100 WBC Auto (Bld)on 92-79-0779Nchnwhhwh/100 WBC (Bld)0.7 %0.2-2.0 [facility] HospitalBilirubin Auto test strip (U) [Mass/Vol]on 22-09-6028Txxrpinbf (U) [Mass/Vol]NegativeNEGATIVETuscarawas HospitalCasts typing in urine sediment by light microscopyon 69-40-4067Jsdkk LM Nom (Urine sed)NONE SEEN #/LPFNONE [facility] HospitalColor Auto (U)on 34-69-3554Hhrbt (U)LT. YELLOWYELLOWTuscarawas Hospital Eosinophils/100 WBC Auto (Bld)on 95-85-3511Vrzuevmoiys/100 WBC (Bld)2.5 %0.9-7.0 [facility] HospitalErythrocyte distribution width Auto (RBC) [Ratio]on 96-14-4252Rwsfulzdqmd distribution width (RBC) [Ratio]16.8 %11.0-15.0 [facility] HospitalEstimated glomerular filtration rate (GFR) non- Americanon 46-67-1325TXH/1.73 sq M.predicted among non-blacks MDRD (S/P/Bld) [Vol rate/Area]42 mL/min/{1.73_m2}>=60[facility] HospitalGlobulin Calc (S) [Mass/Vol]on 75-23-1029Cnlaewsu (S) [Mass/Vol]4.1 g/dL [facility] HospitalGlucose mean value [Mass/volume] in Blood Estimated from glycated hemoglobinon 57-48-2871Xzvujjo glucose Estimated from glycated hemoglobin (Bld) [Mass/Vol]214 mg/dLTuscarawas Hospital Hematocrit Auto (Bld) [Volume fraction]on 57-09-9531Rzexgekhuk (Bld) [Volume fraction]31.8 %42.0-54.0[facility] HospitalHemoglobin [Mass/volume] in Bloodon 52-78-7047Urtojrysko (Bld) [Mass/Vol]9.4 g/dL14.0-18.0 [facility] HospitalKetones Auto test strip (U) [Mass/Vol]on 79-52-3444Qccaqho (U) [Mass/Vol]NegativeNEGATIVETuscarawas HospitalLaboratory - Chemistry and Chemistry - challengeon 58-54-7307Yelljhk [Mass/Vol]2.3 g/dL3.4-5.0[facility] HospitalALP [Catalytic activity/Vol]111 U/A03-600KugpgklsdTuscarawas HospitalALT [Catalytic activity/Vol]11 U/T93-98DgzdmjmvqTuscarawas HospitalAST [Catalytic activity/Vol]11 U/C45-88PecmgftpfTuscarawas HospitalBilirubin [Mass/Vol]0.5 mg/dL0.2-1.0[facility] HospitalCalcium [Mass/Vol]8.1 mg/dL 8.5-10.1FWhite HospitalChloride [Moles/Vol]101 mmol/L98-107 [facility] HospitalCO2 [Moles/Vol]25.6 mmol/L21.0-32.0[facility] HospitalCreatinine [Mass/Vol]1.68 mg/dL0.70-1.30[facility] HospitalGFR/1.73 sq M.predicted MDRD (S/P/Bld) [Vol rate/Area]51 mL/min/{1.73_m2}>=60[facility] HospitalGlucose [Mass/Vol]111 mg/dL 74-106[facility] HospitalPotassium [Moles/Vol]3.7 mmol/L3.5-5.1 [facility] HospitalProtein [Mass/Vol]6.4 g/dL6.4-8.2FSelect Medical Specialty Hospital - Cincinnati Northodium [Moles/Vol]138 mmol/U115-764LncibsepnTuscarawas HospitalUrea nitrogen [Mass/Vol]17.0 mg/dL7.0-18.0[facility] HospitalUrea nitrogen/Creatinine [Mass ratio]10.1 mg/mgTuscarawas HospitalLaboratory - Hematology and Cell countson 42-25-7540ChG3r (Bld) [Mass fraction]9.1 %4.5-6.2FWhite HospitalComment on above:ADA RECOMMENDED LIMIT 4.0 - 6.0ADA THERAPEUTIC TARGET < 7.0ACTION SUGGESTED> 7.0 Immature granulocytes/100 WBC (Bld)0.4 %0.0-0.5FWhite Hospital Laboratory - Microbiology and Antimicrobial susceptibilityOrdered By: Teresa Lynch on 17-21-4469Xrfrgxouybt observation Gram stain Nom (Unsp spec)[facility] HospitalLeukocytes [#/volume] corrected for nucleated erythrocytes in Blood by Automated counon 11-10-1106KDJ corrected for nucl RBC Auto (Bld) [#/Vol]12.3 10 3/uL4.0-11.0[facility] Lymphocytes Auto (Bld) [#/Vol]on 37-87-8864Rbqwymnwdfe (Bld) [#/Vol]1.5 10 3/uL 1.2-3.8[facility] HospitalLymphocytes/100 WBC Auto (Bld)on 61-28-1043Vjxluazqaee/100 WBC (Bld)11.8 %20.5-60.0[facility] HospitalMCH Auto (RBC) [Entitic mass]on 92-53-1435XSM (RBC) [Entitic mass]22.4 pg 25.9-34.0[facility] HospitalMCHC Auto (RBC) [Mass/Vol]on 27-87-3407EUUK (RBC) [Mass/Vol]29.6 g/dL29.9-35.2FWhite HospitalMCV Auto (RBC) [Entitic vol]on 40-05-9662YRI (RBC) [Entitic vol]75.9 fL 80.0-94.0[facility] HospitalMonocytes Auto (Bld) [#/Vol]on 57-51-7166Hlmnuapxf (Bld) [#/Vol]1.3 10 3/uL0.3-0.8[facility] HospitalMonocytes/100 WBC Auto (Bld)on 04-12-3650Teepnwvpb/100 WBC (Bld)10.7 % 1.7-12.0[facility] HospitalMucus LM Ql (Urine sed)on 08-05-2023 Mucus Ql (Urine sed)NONE SEENNONE SEENTuscarawas Hospital Neutrophils Auto (Bld) [#/Vol]on 48-34-3346Ywiwvsoqzop (Bld) [#/Vol]9.1 10 3/uL 1.4-6.5FWhite HospitalNeutrophils/100 WBC Auto (Bld)on 68-91-4193Qyizbmetzlz/100 WBC (Bld)73.9 %43.0-75.0[facility] HospitalNo Panel Informationon 31-72-4845Jqspsgfpqxa # (Auto)0.3 10 3/uL0.0-0.7 [facility] HospitalImmature Granulocyte # (Auto)0.05 10 3/uL 0.00-0.03[facility] HospitalPlatelet mean volume Auto (Bld) [Entitic vol]on 65-29-3250Gojittif mean volume (Bld) [Entitic vol]11.2 fL 9.5-13.5FWhite HospitalPlatelets Auto (Bld) [#/Vol]on 86-84-4009Ryjqssdhu (Bld) [#/Vol]184 10 3/bS417-761EjjteeexpTuscarawas HospitalProtein Auto test strip (U) [Mass/Vol]on 44-27-2331Xlizfxz (U) [Mass/Vol] NegativeNEG/TRACETuscarawas HospitalRBC Auto (Bld) [#/Vol]on 38-22-9095FGR (Bld) [#/Vol]4.19 10 6/uL4.70-6.10[facility], Beachwooderum or plasma albumin/globulin mass ratioon 97-57-0532Bcmlraa/Globulin [Mass ratio]0.6 {ratio}[facility], Beachwooderum or plasma anion gap determinationon 05-96-2657Iogsn gap [Moles/Vol]15.1 mmol/LFSelect Medical Specialty Hospital - Cincinnati Northpecific gravity Auto test strip (U) [Rel density]on 08-05-2023 Specific gravity (U) [Rel density]CLEARCLEARFWhite Hospital Urine bacteria detection by automated methodon 74-21-7745Zaeawlgh Auto Ql (U) TRACE #/HPFNONE [facility] HospitalUrine glucose measurement by test strip (mass/volume)on 42-52-7886Hsndlam Test strip (U) [Mass/Vol]>=1000 mg/dLNEGATIVETuscarawas HospitalUrine hemoglobin detection by automated test stripon 18-13-6178Hiumekbnyu Auto test strip Ql (U)Negative NEGATIVETuscarawas HospitalUrine nitrite detection by automated test stripon 95-83-7710Lwebkxb Auto test strip Ql (U)NegativeNEGATIVETuscarawas HospitalUrine sediment crystal identification by light microscopy on 71-51-0408Hxmfppxn LM Nom (Urine sed)None Seen #/HPFNone [facility] HospitalUrine sediment leukocyte count by microscopy (number/high power field)on 36-06-0890QVE LM.HPF (Urine sed) [#/Area]NONE SEEN #/HPFNONE [facility] HospitalUrobilinogen Auto test strip (U) [Mass/Vol] on 93-36-4529Mazquldewcjv Qn (U)0.2 {Brendan'U}/dL0.2-1.0[facility] HospitalpH Auto test strip (U)on 87-01-3263xF (U)6.0 [pH]5.0-9.0[facility] HospitalBasophils Auto (Bld) [#/Vol]on 88-81-7931Qvrpjpcou (Bld) [#/Vol]0.1 10 3/uL0.0-0.1FWhite HospitalBasophils/100 WBC Auto (Bld)on 39-16-0401Jhnggdbwv/100 WBC (Bld)0.8 %0.2-2.0[facility] HospitalEosinophils/100 WBC Auto (Bld)on 83-65-2529Mqlkmmsxkvm/100 WBC (Bld)2.8 % 0.9-7.0[facility] HospitalErythrocyte distribution width Auto (RBC) [Ratio]on 97-37-6046Gsuscdbjfwt distribution width (RBC) [Ratio]16.9 % 11.0-15.0[facility] HospitalEstimated glomerular filtration rate (GFR) non- Americanon 38-47-8891IWK/1.73 sq M.predicted among non-blacks MDRD (S/P/Bld) [Vol rate/Area]33 mL/min/{1.73_m2}>=60[facility] HospitalGlobulin Calc (S) [Mass/Vol]on 73-38-1614Ovvxgydr (S) [Mass/Vol]4.4 g/dL [facility] HospitalHematocrit Auto (Bld) [Volume fraction]on 29-96-1660Xvbpybikiv (Bld) [Volume fraction]32.6 %42.0-54.0[facility] HospitalHemoglobin [Mass/volume] in Bloodon 31-31-2458Sxzhuoedim (Bld) [Mass/Vol]9.6 g/dL14.0-18.0[facility] HospitalINR in Platelet poor plasma by Coagulation assayon 91-44-2381OOC Coag (PPP) [Relative time]1.05 {INR}[facility] HospitalComment on above:DESIRED INR:2.0-3.0 CONDITIONS NOT LISTED BELOW2.5-3.5 FOR PROSTHETIC HEART VALVE REPLACEMENT2.5-3.5 RECURRENT THROMBOSISLaboratory - Chemistry and Chemistry - challengeon 47-11-6005Cslbkhg [Mass/Vol]2.4 g/dL3.4-5.0[facility] HospitalALP [Catalytic activity/Vol]109 U/R08-913JxchljcjtTuscarawas HospitalALT [Catalytic activity/Vol]9 U/X62-53OmluccfoxTuscarawas HospitalAST [Catalytic activity/Vol]U/K13-62SwfmvauirTuscarawas HospitalBilirubin [Mass/Vol]0.4 mg/dL0.2-1.0[facility] HospitalCalcium [Mass/Vol]8.0 mg/dL8.5-10.1FWhite HospitalChloride [Moles/Vol]96 mmol/L 98-107[facility] HospitalCO2 [Moles/Vol]29.2 mmol/L21.0-32.0 [facility] HospitalCreatinine [Mass/Vol]2.06 mg/dL0.70-1.30 [facility] HospitalGFR/1.73 sq M.predicted MDRD (S/P/Bld) [Vol rate/Area]40 mL/min/{1.73_m2}>=60[facility] HospitalGlucose [Mass/Vol]329 mg/oS31-822CxcgxfjplTuscarawas HospitalPotassium [Moles/Vol] 3.5 mmol/L3.5-5.1FWhite HospitalProtein [Mass/Vol]6.8 g/dL 6.4-8.2FSelect Medical Specialty Hospital - Cincinnati Northodium [Moles/Vol]132 mmol/J653-650 [facility] HospitalUrea nitrogen [Mass/Vol]20.0 mg/dL7.0-18.0 [facility] HospitalUrea nitrogen/Creatinine [Mass ratio]9.7 mg/mg [facility] HospitalLaboratory - Hematology and Cell countson 38-76-6800FNF (Bld) [Velocity]89 mm/h<=20[facility] Immature granulocytes/100 WBC (Bld)0.3 %0.0-0.5FWhite Hospital Laboratory - Microbiology and Antimicrobial susceptibilityOrdered By: Teresa Lynch on 75-79-7429Ixhdzicurxl observation Gram stain Nom (Unsp spec)[facility] HospitalLeukocytes [#/volume] corrected for nucleated erythrocytes in Blood by Automated counon 97-03-4615ZIY corrected for nucl RBC Auto (Bld) [#/Vol]11.6 10 3/uL4.0-11.0[facility] Lymphocytes Auto (Bld) [#/Vol]on 51-68-9237Supqhosdqye (Bld) [#/Vol]1.7 10 3/uL 1.2-3.8[facility] HospitalLymphocytes/100 WBC Auto (Bld)on 54-06-1141Vqprvwpubtf/100 WBC (Bld)14.9 %20.5-60.0[facility] HospitalH Auto (RBC) [Entitic mass]on 07-38-6765FVV (RBC) [Entitic mass]22.3 pg 25.9-34.0[facility] HospitalMCHC Auto (RBC) [Mass/Vol]on 14-08-4409CQVO (RBC) [Mass/Vol]29.4 g/dL29.9-35.2FWhite HospitalMCV Auto (RBC) [Entitic vol]on 38-21-2789FIU (RBC) [Entitic vol]75.8 fL 80.0-94.0[facility] HospitalMonocytes Auto (Bld) [#/Vol]on 64-25-4522Lvtgkfllb (Bld) [#/Vol]1.2 10 3/uL0.3-0.8[facility] HospitalMonocytes/100 WBC Auto (Bld)on 93-89-1695Paqgevuhu/100 WBC (Bld)10.4 % 1.7-12.0[facility] HospitalNeutrophils Auto (Bld) [#/Vol]on 90-20-7375Whsgppxwhie (Bld) [#/Vol]8.2 10 3/uL1.4-6.5FWhite HospitalNeutrophils/100 WBC Auto (Bld)on 53-91-2716Oopmanuhidc/100 WBC (Bld)70.8 % 43.0-75.0[facility] HospitalNo Panel InformationOrdered By: Teresa Lynch on 57-88-7074Dgyce Culture 2FWhite HospitalBlood Culture 1FWhite HospitalWound CultureTuscarawas Hospital No Panel Informationon 53-57-8604Criionu & Anaerobic SusceptibilityTuscarawas HospitalMiscellaneous Test CommentSee commentTuscarawas HospitalComment on above:Specimen Source: FOOT - Foot - Foot - 603.950C- Reactive Protein, Rhkesjzovdiq13.62 mg/dL<=0.50[facility] Eosinophils # (Auto)0.3 10 3/uL0.0-0.7FWhite HospitalImmature Granulocyte # (Auto)0.04 10 3/uL0.00-0.03[facility] Platelet mean volume Auto (Bld) [Entitic vol]on 32-07-3374Piotjwab mean volume (Bld) [Entitic vol]11.5 fL9.5-13.5FWhite HospitalPlatelets Auto (Bld) [#/Vol]on 19-34-6884Zzpttgyeq (Bld) [#/Vol]206 10 3/kC813-670 [facility] HospitalProthrombin time (PT)on 31-49-5668KQ Coag (PPP) [Time]11.1 s9.0-11.6FWhite HospitalRBC Auto (Bld) [#/Vol]on 01-46-3785XVT (Bld) [#/Vol]4.30 10 6/uL4.70-6.10[facility], Beachwooderum or plasma albumin/globulin mass ratioon 14-40-9772Yxspxan/Globulin [Mass ratio]0.5 {ratio}[facility], Beachwooderum or plasma anion gap determinationon 45-42-8676Lnpna gap [Moles/Vol]10.3 mmol/LFSelect Medical Specialty Hospital - Cincinnati Northerum procalcitonin measurementon 88-22-6827Bzjccjdhwbnuq [Mass/Vol]0.10 ng/mL0.00-0.50[facility] HospitalBasophils Auto (Bld) [#/Vol]on 02-97-8629Hfwpjjshu (Bld) [#/Vol]0.1 10 3/uL0.0-0.1FWhite HospitalBasophils/100 WBC Auto (Bld)on 10-29-3691Vjwgjjsgi/100 WBC (Bld)0.7 %0.2-2.0[facility] HospitalEosinophils/100 WBC Auto (Bld)on 47-17-5590Zxuhlmrezhc/100 WBC (Bld)1.8 %0.9-7.0[facility] HospitalErythrocyte distribution width Auto (RBC) [Ratio]on 08-03-2023 Erythrocyte distribution width (RBC) [Ratio]17.0 %11.0-15.0[facility] HospitalEstimated glomerular filtration rate (GFR) non- Americanon 69-30-0911CEW/1.73 sq M.predicted among non-blacks MDRD (S/P/Bld) [Vol rate/Area]27 mL/min/{1.73_m2}>=60[facility] HospitalGlobulin Calc (S) [Mass/Vol]on 38-69-0730Nhpfrovd (S) [Mass/Vol]5.0 g/dLTuscarawas HospitalHematocrit Auto (Bld) [Volume fraction]on 05-83-7179Mryohaltec (Bld) [Volume fraction]38.9 %42.0-54.0[facility] Hemoglobin [Mass/volume] in Bloodon 84-50-0404Qbxtvgibuk (Bld) [Mass/Vol]11.8 g/dL14.0-18.0[facility] HospitalLaboratory - Chemistry and Chemistry - challengeon 61-34-3586Xuuhhph [Moles/Vol]1.6 mmol/L0.4-2.0[facility] HospitalAlbumin [Mass/Vol]3.3 g/dL3.4-5.0[facility] HospitalALP [Catalytic activity/Vol]134 U/F68-394LzztutlhxTuscarawas HospitalALT [Catalytic activity/Vol]13 U/B59-53McwcwvjcyTuscarawas HospitalAST [Catalytic activity/Vol]U/I42-88DuoriegchTuscarawas Hospital Bilirubin [Mass/Vol]0.6 mg/dL0.2-1.0[facility] HospitalCalcium [Mass/Vol]9.3 mg/dL8.5-10.1FWhite HospitalChloride [Moles/Vol] 92 mmol/V44-080YvqjpksbuTuscarawas HospitalCO2 [Moles/Vol]31.0 mmol/L 21.0-32.0[facility] HospitalCreatinine [Mass/Vol]2.45 mg/dL 0.70-1.30[facility] HospitalGFR/1.73 sq M.predicted MDRD (S/P/Bld) [Vol rate/Area]33 mL/min/{1.73_m2}>=60[facility] HospitalGlucose [Mass/Vol]310 mg/rY81-270BbhtlwuimTuscarawas HospitalPotassium [Moles/Vol] 3.7 mmol/L3.5-5.1FWhite HospitalProtein [Mass/Vol]8.3 g/dL 6.4-8.2FSelect Medical Specialty Hospital - Cincinnati Northodium [Moles/Vol]133 mmol/Z131-382 [facility] HospitalUrea nitrogen [Mass/Vol]23.0 mg/dL7.0-18.0 [facility] HospitalUrea nitrogen/Creatinine [Mass ratio]9.4 mg/mg [facility] HospitalLaboratory - Hematology and Cell countson 75-94-1843KOJ (Bld) [Velocity]118 mm/h<=20[facility] Immature granulocytes/100 WBC (Bld)0.4 %0.0-0.5FWhite Hospital Leukocytes [#/volume] corrected for nucleated erythrocytes in Blood by Automated counon 45-26-2330KTB corrected for nucl RBC Auto (Bld) [#/Vol]14.6 10 3/uL 4.0-11.0[facility] HospitalLymphocytes Auto (Bld) [#/Vol]on 37-79-3250Ikzsuhrozvg (Bld) [#/Vol]2.1 10 3/uL1.2-3.8[facility] HospitalLymphocytes/100 WBC Auto (Bld)on 18-47-2704Jbfgtizqtww/100 WBC (Bld)14.3 % 20.5-60.0[facility] HospitalH Auto (RBC) [Entitic mass]on 00-67-7890ATI (RBC) [Entitic mass]22.6 pg25.9-34.0[facility] HospitalMCHC Auto (RBC) [Mass/Vol]on 83-81-1435ZHOF (RBC) [Mass/Vol]30.3 g/dL 29.9-35.2FWhite HospitalMCV Auto (RBC) [Entitic vol]on 30-40-3073SSM (RBC) [Entitic vol]74.4 fL80.0-94.0[facility] HospitalMonocytes Auto (Bld) [#/Vol]on 73-36-4559Xjxdfouxc (Bld) [#/Vol]1.4 10 3/uL0.3-0.8[facility] HospitalMonocytes/100 WBC Auto (Bld)on 72-92-8597Blyddoqeb/100 WBC (Bld)9.4 %1.7-12.0[facility] Neutrophils Auto (Bld) [#/Vol]on 00-82-6605Wvyxtneksdh (Bld) [#/Vol]10.7 10 3/uL 1.4-6.5FWhite HospitalNeutrophils/100 WBC Auto (Bld)on 54-33-1727Fntycgitlpz/100 WBC (Bld)73.4 %43.0-75.0[facility] HospitalNo Panel Informationon 40-94-1153V-Reactive Protein, Hhtehkbombpo59.63 mg/dL<=0.50[facility] HospitalEosinophils # (Auto)0.3 10 3/uL 0.0-0.7FWhite HospitalImmature Granulocyte # (Auto)0.06 10 3/uL0.00-0.03[facility] HospitalVenous Blood Partial Pressure CO2 44.8 mm[Hg]40.0-52.0[facility] HospitalVenous Blood pH7.432 7.330-7.430[facility] HospitalNo Panel InformationOrdered By: Teresa Lynch on 36-15-2807Lroiv Culture 2FWhite HospitalBlood Culture 1FWhite HospitalPlatelet mean volume Auto (Bld) [Entitic vol]on 36-86-2446Nnjogckp mean volume (Bld) [Entitic vol]11.4 fL 9.5-13.5FWhite HospitalPlatelets Auto (Bld) [#/Vol]on 06-81-8309Fzrskkvwx (Bld) [#/Vol]252 10 3/aS165-455UaklkkkiiTuscarawas HospitalRBC Auto (Bld) [#/Vol]on 22-48-9439TEO (Bld) [#/Vol]5.23 10 6/uL4.70-6.10 [facility], Beachwooderum or plasma albumin/globulin mass ratioon 27-82-5483Kgaejds/Globulin [Mass ratio]0.7 {ratio}[facility], Beachwooderum or plasma anion gap determinationon 47-91-8373Hfvlm gap [Moles/Vol] 13.7 mmol/LFWhite HospitalActivated partial thromboplastin time (aPTT) in platelet poor plasma by coagulation aOrdered By: Abdullahi Wilson on 92-18-2011uWUA Coag (PPP) [Time]29.4 s25.1-36.5FWhite HospitalComment on above:A hematocrit value greater than 55% may lead to inaccurate results in coagulation testing. Patientshaving hematocrit values >55% require a special collection tube for coagulation studies. Please contact the laboratory at [phone] for redraw instructions.Alanine aminotransferase [Enzymatic activity/volume] in Serum or PlasmaOrdered By: Abdullahi Wilson on 86-16-2252TJN [Catalytic activity/Vol]9 U/L7-52[facility] Albumin [Mass/volume] in Serum or Plasma by Bromocresol green (BCG) dye binding methoOrdered By: Abdullahi Wilson on 55-96-0202Wgkuiti BCG dye [Mass/Vol]3.9 g/dL 3.5-5.7FWhite HospitalAlkaline phosphatase [Enzymatic activity/volume] in Serum or PlasmaOrdered By: Abdullahi Wilson on 24-94-4913IUB [Catalytic activity/Vol]106 U/R33-779BoektazhqTuscarawas HospitalAspartate aminotransferase [Enzymatic activity/volume] in Serum or PlasmaOrdered By: Abdullahi Wilson on 72-35-5044DSH [Catalytic activity/Vol]8 U/H98-20QnragwfwiTuscarawas HospitalBasophils Auto (Bld) [#/Vol]Ordered By: Abdullahi Wilson on 02-89-9340Kbwpwazpf (Bld) [#/Vol]0.1 10*3/uL0.0-0.2FWhite HospitalBasophils/100 WBC Auto (Bld)Ordered By: Abdullahi Wilson on 07-12-2023 Basophils/100 WBC (Bld)1.1 %.[facility]aw[facility] HospitalBilirubin.total [Mass/volume] in Serum or PlasmaOrdered By: Abdullahi Wilson on 07-12-2023 Bilirubin [Mass/Vol]0.4 mg/dL0.3-1.0[facility] HospitalCalcium [Mass/volume] in Serum or PlasmaOrdered By: Abdullahi Wilson on 60-64-9461Awmxwdb [Mass/Vol]8.5 mg/dL8.6-10.3FWhite HospitalCarbon dioxide, total [Moles/volume] in Serum or PlasmaOrdered By: Abdullahi Wilson on 07-12-2023 CO2 [Moles/Vol]24.5 mmol/L21.0-31.0[facility] HospitalChloride [Moles/volume] in Serum or PlasmaOrdered By: Abdullahi Wilson on 07-12-2023 Chloride [Moles/Vol]102 mmol/R31-858KzupgvkhgTuscarawas HospitalCreatine kinase [Enzymatic activity/volume] in Serum or PlasmaOrdered By: Abdullahi Wilson on 34-29-7846YZ [Catalytic activity/Vol]55 U/G33-577VsdtwpgzzTuscarawas HospitalCreatinine [Mass/volume] in Serum or PlasmaOrdered By: Abdullahi Wilson on 62-20-3197Ibxnsqzlkv [Mass/Vol]1.82 mg/dL0.70-1.30[facility] HospitalEosinophils Auto (Bld) [#/Vol]Ordered By: Abdullahi Wilson on 07-12-2023 Eosinophils (Bld) [#/Vol]0.3 10*3/uL0.0-0.45[facility] Eosinophils/100 WBC Auto (Bld)Ordered By: Abdullahi Wilson on 07-12-2023 Eosinophils/100 WBC (Bld)3.3 %.[facility]aw[facility] HospitalErythrocyte distribution width Auto (RBC) [Ratio]Ordered By: Abdullahi Wilson on 07-12-2023 Erythrocyte distribution width (RBC) [Ratio]17.1 %12.0-14.8[facility] HospitalGlobulin Calc (S) [Mass/Vol]Ordered By: Abdullahi Wilson on 81-98-5419Ynzwnuiq (S) [Mass/Vol]3.1 g/dLTuscarawas Hospital Glucose [Mass/volume] in Serum or PlasmaOrdered By: Abdullahi Wilson on 07-12-2023 Glucose [Mass/Vol]302 mg/pK37-789ExiuyjrtyTuscarawas HospitalComment on above:ADA recommended reference rangeRandom Glucose Reference Range is dependent on time and content of last meal. Glucose of more than 200 mg/dL in a nonstressed, ambulatory subject supports the diagnosisof Diabetes Mellitus. Hematocrit Auto (Bld) [Volume fraction]Ordered By: Abdullahi Wilson on 07-12-2023 Hematocrit (Bld) [Volume fraction]32.7 %38.8-50.0[facility] HospitalHemoglobin [Mass/volume] in BloodOrdered By: Abdullahi Wilson on 07-12-2023 Hemoglobin (Bld) [Mass/Vol]10.6 g/dL13.0-17.0[facility] INR in Platelet poor plasma by Coagulation assayOrdered By: Abdullahi Wilson on 82-11-0976LQC Coag (PPP) [Relative time]1.1 {INR}[facility]aw[facility] HospitalComment on above:INR Therapeutic Range A) Pre- and Peroperative OAT started two weeks before surgery. NOT HIP SURGERY: 1.5 - 2.5 HIP SURGERY: 2 - 3B) Primary and secondary prevention of venous THROMBOSIS: 2 - 3C) Active venous thrombosis, pulmonary embolismand prevention of recurrent venous thrombosis: 2 - 3D) Prevention of arterial thromboembolismincluding patients with mechanical heart valves: 3 - 4.5Leukocytes [#/volume] corrected for nucleated erythrocytes in Blood by Automated counOrdered By: Abdullahi Wilson on 13-63-7100PHR corrected for nucl RBC Auto (Bld) [#/Vol]9.5 10*3/uL4.1-10.5FWhite HospitalLymphocytes Auto (Bld) [#/Vol]Ordered By: Abdullahi Wilson on 07-12-2023 Lymphocytes (Bld) [#/Vol]1.9 10*3/uL1.00-4.8[facility] Lymphocytes/100 WBC Auto (Bld)Ordered By: Abdullahi Wilson on 07-12-2023 Lymphocytes/100 WBC (Bld)20.0 %.[facility]H Auto (RBC) [Entitic mass]Ordered By: Abdullahi Wilson on 70-77-3739FNO (RBC) [Entitic mass] 22.8 pg27.5-35.2FWhite HospitalMCHC Auto (RBC) [Mass/Vol] Ordered By: Abdullahi Wilson on 90-06-7373HIQZ (RBC) [Mass/Vol]32.4 g/dL32.5-35.6 [facility] HospitalMCV Auto (RBC) [Entitic vol]Ordered By: Abdullahi Wilson on 77-59-6217XBO (RBC) [Entitic vol]70.6 fL83.5-101T[facility]carawas HospitalMonocyte distribution width [Entitic volume] in Blood by Automated Ordered By: Abdullahi Wilson on 49-56-8212Wdbwhpvh distribution width Auto (Bld) [Entitic vol]18.12 %0.00-20.00[facility]awas HospitalMonocytes Auto (Bld) [#/Vol]Ordered By: Abdullahi Wilson on 43-20-5368Uqzeeupcm (Bld) [#/Vol]1.0 10*3/uL0.0-0.8[facility]as HospitalMonocytes/100 WBC Auto (Bld) Ordered By: Abdullahi Wilson on 37-73-1995Tnkuyogde/100 WBC (Bld)10.2 %.[facility] HospitalNatriuretic peptide B [Mass/Vol]Ordered By: Abdullahi Wilson on 36-63-9753Ebykibkxyjb peptide B (Bld) [Mass/Vol]34.0 pg/mL5-100 [facility] HospitalNeutrophils Auto (Bld) [#/Vol]Ordered By: Abdullahi Wilson on 61-72-4307Fspncoyqrom (Bld) [#/Vol]6.2 10*3/uL1.8-7.7FWhite HospitalNeutrophils/100 WBC Auto (Bld)Ordered By: Abdullahi Wilson on 79-89-1594Shcbfxvoxys/100 WBC (Bld)65.4 %.[facility] No Panel InformationOrdered By: Abdullahi Wilson on 68-66-9084Nwnikgrgv GFR (CKD-EPI)42.789 mL/MinTuscarawas HospitalPharmacy Creatinine Clearance (Chem54.64T[facility]carawas HospitalNucleated erythrocytes [Presence] in Blood by Automated countOrdered By: Abdullahi Wilson on 07-12-2023 Nucleated RBC Auto Ql (Bld)0.1 /100{WBC}0-0.5FWhite Hospital Platelet mean volume Auto (Bld) [Entitic vol]Ordered By: Abdullahi Wilson on 32-75-2495Xdfkucuv mean volume (Bld) [Entitic vol]9.1 fL6.6-10.1FWhite HospitalPlatelets Auto (Bld) [#/Vol]Ordered By: Abdullahi Wilson on 20-74-3900Lgvjgcxcj (Bld) [#/Vol]233 10*3/sO318-297IhtfwlavaTuscarawas HospitalPotassium [Moles/volume] in Serum or PlasmaOrdered By: Abdullahi Wilson on 20-82-1988Wgxgfzlct [Moles/Vol]3.9 mmol/L3.5-5.1FWhite HospitalProtein [Mass/volume] in Serum or PlasmaOrdered By: Abdullahi Wilson on 35-88-5656Qgrpaht [Mass/Vol]7.0 g/dL6.4-8.9[facility] Prothrombin time (PT)Ordered By: Abdullahi Wilson on 08-20-6982OE Coag (PPP) [Time]12.1 s9.0-12.9T[facility]awas HospitalComment on above:A hematocrit value greater than 55% may lead to inaccurate results in coagulation testing. Patientshaving hematocrit values >55% require a special collection tube for coagulation studies. Please contact the laboratory at [phone] for redraw instructions.RBC Auto (Bld) [#/Vol]Ordered By: Abdullahi Wilson on 98-75-0350REA (Bld) [#/Vol]4.63 10*6/uL3.90-5.60[facility] Beachwooderum or plasma albumin/globulin mass ratioOrdered By: Abdullahi Wilson on 77-26-5780Lhscqne/Globulin [Mass ratio]1.3 {ratio}[facility], Beachwooderum or plasma anion gap determinationOrdered By: Abdullahi Wilson on 95-69-2968Fyfex gap [Moles/Vol]13.4 mmol/L6.0-15.0[facility], Beachwoododium [Moles/volume] in Serum or PlasmaOrdered By: Abdullahi Wilson on 83-47-9294Zuxlre [Moles/Vol]136 mmol/Q547-390YkctelbpgTuscarawas Hospital Troponin I.cardiac [Mass/volume] in Serum or Plasma by Detection limit <= 0.01 ng/Ordered By: Abdullahi Wilson on 78-67-5221Jsrkwfvd I.cardiac DL <= 0.01 ng/mL [Mass/Vol]4.6 pg/mL0.0-20.0[facility] HospitalUrea nitrogen [Mass/volume] in Serum or PlasmaOrdered By: Abdullahi Wilson on 94-08-0670Cjuw nitrogen [Mass/Vol]16 mg/dL7-25T[facility]carawas HospitalWBC Auto (Bld) [#/Vol]Ordered By: Abdullahi Wilson on 33-04-2255SJO (Bld) [#/Vol]9.5 10*3/uL 4.1-10.5FWhite HospitalPatient Educationon 52-45-2338Kwnwevs EducationUrology Benign Prostatic Hyperplasia Benign prostatic hyperplasia (BPH) [...] urine that may remain in your bladder afteryou finish urinating. ? A digital rectal exam. [...] Follow these instructions at home: ? Take tbhn-oro-rwhosol and prescription medicines only as told by [...] from the medicine (more content not included)... [facility]Ret[facility] - Clinical Noteon 51-08-4337Uishha - Clinical [id number]#1.00TIFFNormalOhiohealth Grady Memorial HospitalUrology Office/Clinic Noteon 18-72-4090Tazgyvo Office/Clinic Note Chief Complaint S/p to Cysto HPI Staff Sp to [place] [facility] [place] [place]- Has not [...] leuks. TURP 04/13/23. Path negative for malignancy. Thepathology report was reviewed with the patient in [...] Small open mouth diverticuli. Urodynamics shows a lowflow, incomplete emptying and moderate pressures. Due to [...] Contact Information SOLEDAD HERRERA, Yeyo Blum, URL [facility] [place] [id number]- Additional Instructions: 1 month w/ cath volumes [...] CHF (congestive heart failure) (more content not included)...[facility] HospitalComment on above: Result Comment: Electronically Signed By: Yeyo ROWE MD\.br\Date and Time Signed: 06/02/23 12:16 EST\.br\Electronically Co-Signed By: Mattie Foster.br\Date and Time Co-Signed: 06/02/2312:04 ESTPatient Educationon 05-03-2023 Patient EducationNoCrystal Clinic Orthopedic CenterPathology Noteon 05-01-2023 Pathology [id number]#1.00TIFAvita Health SystemLab Reportson 90-18-7218Qmv Reports [id number]#1.00TIFAvita Health SystemOperative Reporton 59-98-4133Vwnrzofjo Report [id number]#1.00TIFAvita Health SystemPatient Correspondenceon 06-65-8099Asqyurk Correspondence [id number]#1.00TIFFClermont County HospitalLab Reportson 49-23-3245Wid Reports [id number]#1.00TIFAvita Health SystemRAD - MISCon 45-17-0504MCY - MISC [id number]#1.00TIFFClermont County HospitalPatient Correspondenceon 62-32-5581Iwsfihc Correspondence [id number]#1.00TIFAvita Health SystemFormson [id number]#1.00TIFF [facility] HospitalA1C HEMOGLOBINon 09-57-2187KhA7o (Bld) [Mass fraction]7.5 %[employer] Other HbA1c (Bld) [Mass fraction]on 48-52-4450U8C HEMOGLOBIN [employer] Other Lab Reportson 06-64-9737Dwr Reports [id number]#1.00TIFFNoCrystal Clinic Orthopedic CenterOffice Visit (Cardiology)on 68-59-9411Wcsgtt-up visitDiagnoses/Problems Assessed 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 Prescription drug management of cardiovascular medication for efficacy, adherence to treatment, side effect assessment and polypharmacy. Current treatment clinically warranted and to continue withfollowing modifications: - Ok to stop imdur and [...] of sildenafil and we discussed discontinuing long-acting nitr ates in order to accommodate. He will monitor [...] Managed By: Sia HERRERA, (more content not included)...NormalUH TouchworksTobacco Screening.on 91-36-2570Jzls risk assessmentc) Not medically indicatedMP-[facility] [facility] DO Work Phone: Tobacco use status CPHSb) NoMP-[facility] [place] 250 DO Work Phone: Tobacco Screening.YesMP-[facility] [facility] DO Work Phone: NO CARDIAC STRESS/REST INJECTIONon 59-45-3543HEQ CARDIAC STRESS/REST INJECTIONMRN: [id number] Patient Name: MYRA PICKARD STUDY: MYOCARDIAL PERFUSION STRESS TEST WITH EXERCISE CONVERTED TO LEXISCAN Performing facility: [facility], [address] [place] [address] Provider: Dolores Pickard RN, SUPERVISOR PLATING [employer] POINT ASSEMBLY PCP: Dr. Teresa Lynch Supervising provider: Pascale Arnold MD, FACC INDICATION: Anginal equivalent CAD; HISTORY: Gender: M; Age: 57 y/o ; Height: 182.88 cm; Weight: 97.1634544 kg. High Cholesterol; CAD; Diabetes; HTN; Palpitations; Chest Pain; Quit smoking unknown years ago. COMPARISON: Previous nuclear testing completed at [facility]. ACCESSION NUMBER(S): [id number]; [id number]; [id number] ORDERING CLINICIAN: DOLORES PICKARD TECHNIQUE: ONE DAY [...] in the perfusion study. 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 Prescription drug management of cardiovascular medication for efficacy, adherence to treatment, side effect assessment and polypharmacy. Current treatment clinically warranted and to continue withfollowing modifications: - Imdur 30mg daily 2. Lexiscan MPI d/t chest pain, THEODORE, fatigue; no treadmill d/t fatigue, PAD, edema 3. Return for follow-up; in the interim, contact the office if new symptoms arise. 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 He denies any claudication symptoms. He has [...] History of Cataract surg (more content not included)...NormalUH Touchworks Tobacco Screening.on 21-81-5183Dsxvl depression screening assessmentNo-[facility] 600 DO Work Phone: Tobacco use status CPHSb) NoMP-[facility] 600 DO Work Phone: Alanine aminotransferase [Enzymatic activity/volume] in Serum or PlasmaOrdered By: Teresa Lynch on 77-48-5158TNZ [Catalytic activity/Vol]15 U/L7-52Tuscarawas HospitalAlbumin [Mass/volume] in Serum or Plasma by Bromocresol green (BCG) dye binding methoOrdered By: Teresa Lynch on 64-20-9782Kjcitnn BCG dye [Mass/Vol]4.1 g/dL3.5-5.7FWhite HospitalAlkaline phosphatase [Enzymatic activity/volume] in Serum or PlasmaOrdered By: Teresa Lynch on 97-92-0701GXJ [Catalytic activity/Vol]116 U/L 34-104Tuscarawas HospitalAspartate aminotransferase [Enzymatic activity/volume] in Serum or PlasmaOrdered By: Teresa Lynch on 53-37-1538LFJ [Catalytic activity/Vol]15 U/Y74-51QsgmeevdtTuscarawas HospitalBasophils Auto (Bld) [#/Vol]Ordered By: Teresa Lynch on 34-97-0724Hbqydcyqm (Bld) [#/Vol]0.1 10*3/uL0.0-0.2FWhite HospitalBasophils/100 WBC Auto (Bld) Ordered By: Teresa Lynch on 37-57-7337Byihrresz/100 WBC (Bld)1.1 %.[facility] HospitalBilirubin.total [Mass/volume] in Serum or PlasmaOrdered By: Teresa Lynch on 79-84-8687Slwjcmunr [Mass/Vol]0.4 mg/dL0.3-1.0T[facility] HospitalCalcium [Mass/volume] in Serum or PlasmaOrdered By: Teresa Lynch on 92-92-8802Yircopb [Mass/Vol]8.8 mg/dL8.6-10.3FWhite HospitalCarbon dioxide, total [Moles/volume] in Serum or PlasmaOrdered By: Teresa Lynch on 90-03-8577DK5 [Moles/Vol]27.2 mmol/L21.0-31.0T[facility]awas HospitalChloride [Moles/volume] in Serum or PlasmaOrdered By: Teresa Lynch on 63-77-2320Qnqmbqyc [Moles/Vol]99 mmol/B42-642ZpcadiumzTuscarawas Hospital Cholesterol [Mass/volume] in Serum or PlasmaOrdered By: Teresa Lynch on 09-27-2022 Cholesterol [Mass/Vol]104 mg/aD181-511DmaazgbegTuscarawas HospitalComment on above:Chol less than 200 mg/dl low riskChol 201-239 mg/dl borderline riskChol 240 mg/dl and greater high riskCholesterol in LDL Calc [Mass/Vol]Ordered By: Teresa Lynch on 18-40-7633Jexayejizcq in LDL [Mass/Vol]TNPTuscarawas HospitalComment on above:Test not performedCholesterol in LDL [Mass/volume] in Serum or PlasmaOrdered By: Teresa Lynch on 43-12-2377Urdugokxjml in LDL [Mass/Vol]38 mg/dL0-100T[facility]awas HospitalComment on above: LDL ATP III CLASSIFICATIONLDL less than 100 mg/dL OptimalLDL 100-129 mg/dL Near or above fuaxygbAJQ175-236 mg/dL Borderline highLDL 160-189 mg/dL HighLDL greater than 189 mg/dL Very highCholesterol in VLDL Calc [Mass/Vol]Ordered By: Teresa Lynch on 40-99-0892Lqwtkdpjdcq in VLDL [Mass/Vol]99 mg/dLTuscarawas HospitalCreatinine [Mass/volume] in Serum or PlasmaOrdered By: Teresa Lynch on 30-07-0956Nudjcagfrt [Mass/Vol]1.84 mg/dL0.70-1.30T[facility]carawas HospitalEosinophils Auto (Bld) [#/Vol]Ordered By: Teresa Lynch on 09-27-2022 Eosinophils (Bld) [#/Vol]0.7 10*3/uL0.0-0.45[facility] Eosinophils/100 WBC Auto (Bld)Ordered By: Teresa Lynch on 09-27-2022 Eosinophils/100 WBC (Bld)5.9 %.[facility]aw[facility] HospitalErythrocyte distribution width Auto (RBC) [Ratio]Ordered By: Teresa Lynch on 09-27-2022 Erythrocyte distribution width (RBC) [Ratio]16.0 %12.0-14.8T[facility]carawas HospitalGlobulin Calc (S) [Mass/Vol]Ordered By: Teresa Lynch on 09-27-2022 Globulin (S) [Mass/Vol]2.9 g/dLTuscarawas HospitalGlucose [Mass/volume] in Serum or PlasmaOrdered By: Teresa Lynch on 40-57-7967Ubbljxk [Mass/Vol]225 mg/fB10-058KipcxzenjTuscarawas HospitalComment on above:ADA recommended reference rangeRandom Glucose Reference Range is dependent on time and content of last meal. Glucose of more than 200 mg/dL in a nonstressed, ambulatory subject supports the diagnosisof Diabetes Mellitus.Hematocrit Auto (Bld) [Volume fraction]Ordered By: Teresa Lynch on 98-48-0312Fcrroowgpj (Bld) [Volume fraction]41.0 %38.8-50.0T[facility]carawas HospitalHemoglobin [Mass/volume] in BloodOrdered By: Teresa Lynch on 66-00-8635Dsfugxutfd (Bld) [Mass/Vol]13.2 g/dL13.0-17.0T[facility]carawas HospitalLeukocytes [#/volume] corrected for nucleated erythrocytes in Blood by Automated coun Ordered By: Teresa Lynch on 71-00-9436PPW corrected for nucl RBC Auto (Bld) [#/Vol]12.4 10*3/uL4.1-10.5FWhite HospitalLymphocytes Auto (Bld) [#/Vol]Ordered By: Teresa Lynch on 90-45-2018Vxmcgquwcwt (Bld) [#/Vol]2.3 10*3/uL1.00-4.8T[facility]carawas HospitalLymphocytes/100 WBC Auto (Bld) Ordered By: Teresa Lynch on 63-47-4134Dlbaxlaalnd/100 WBC (Bld)18.2 %.[facility] HospitalH Auto (RBC) [Entitic mass]Ordered By: Teresa Lynch on 04-34-1914CZT (RBC) [Entitic mass]23.9 pg27.5-35.2FWhite HospitalMCHC Auto (RBC) [Mass/Vol]Ordered By: Teresa Lynch on 36-70-3940MWWE (RBC) [Mass/Vol]32.2 g/dL32.5-35.6FWhite HospitalMCV Auto (RBC) [Entitic vol]Ordered By: Teresa Lynch on 74-54-1189XGM (RBC) [Entitic vol]74.3 fL 83.5-101T[facility]carawas HospitalMonocytes Auto (Bld) [#/Vol]Ordered By: Teresa Lynch on 38-08-4461Xdwefdgao (Bld) [#/Vol]1.0 10*3/uL0.0-0.8T[facility]awas HospitalMonocytes/100 WBC Auto (Bld)Ordered By: Teresa Lynch on 47-85-1853Ulkecpezk/100 WBC (Bld)7.9 %.[facility] Neutrophils Auto (Bld) [#/Vol]Ordered By: Teresa Lynch on 57-30-1774Ahsteqvgtxu (Bld) [#/Vol]8.3 10*3/uL1.8-7.7FWhite HospitalNeutrophils/100 WBC Auto (Bld)Ordered By: Teresa Lynch on 31-88-0364Kqwmxeelugu/100 WBC (Bld)66.9 %.[facility] HospitalNo Panel InformationOrdered By: Teresa Lynch on 42-27-1381Ygiuzcvzv GFR (CKD-EPI)42.232 mL/MinTuscarawas Hospital Pharmacy Creatinine Clearance (ChemN/[facility] NorthNucleated erythrocytes [Presence] in Blood by Automated countOrdered By: Teresa Lynch on 18-30-4390Cbwympmey RBC Auto Ql (Bld)0.1 /100{WBC}0-0.5FWhite HospitalPlatelet mean volume Auto (Bld) [Entitic vol]Ordered By: Teresa Lynch on 52-13-0630Vtpkgspt mean volume (Bld) [Entitic vol]9.1 fL6.6-10.1 [facility] HospitalPlatelets Auto (Bld) [#/Vol]Ordered By: Teresa Lynch on 51-41-9550Aafcoazri (Bld) [#/Vol]209 10*3/cV219-571AfkhryogwTuscarawas HospitalPotassium [Moles/volume] in Serum or PlasmaOrdered By: Teresa Lynch on 42-18-1940Fqhqvhcqr [Moles/Vol]4.3 mmol/L3.5-5.1FWhite HospitalProtein [Mass/volume] in Serum or PlasmaOrdered By: Teresa Lynch on 40-92-8366Chfpxtq [Mass/Vol]7.0 g/dL6.4-8.9T[facility]awas HospitalRBC Auto (Bld) [#/Vol]Ordered By: Teresa Lynch on 82-32-5217BQF (Bld) [#/Vol]5.52 10*6/uL3.90-5.60[facility], Beachwooderum or plasma albumin/globulin mass ratioOrdered By: Teresa Lynch on 11-98-1175Rtevjdm/Globulin [Mass ratio]1.4 {ratio}[facility], Beachwooderum or plasma anion gap determinationOrdered By: Teresa Lynch on 84-46-8915Uoakg gap [Moles/Vol]14.1 mmol/L6.0-15.0[facility], Beachwooderum or plasma high density lipoprotein (HDL) cholesterol measurementOrdered By: Teresa Lynch on 09-27-2022 Cholesterol in HDL [Mass/Vol]21 mg/yC17-50EbddrfseaTuscarawas Hospital Comment on above:HDL CHOL ATP-III CLASSIFICATION Cardiovascular RiskHDL > or equal to 60 mg/dL LOWHDL < 40 mg/dL HIGHSerum or plasma total cholesterol/high density lipoprotein (HDL) cholesterol mass ratOrdered By: Teresa Lynch on 43-44-1878Wwnmzgqgivm.total/Cholesterol in HDL [Mass ratio]5.0 {ratio}<5.0 [facility], Beachwoododium [Moles/volume] in Serum or PlasmaOrdered By: Teresa Lynch on 11-17-5071Nupfxz [Moles/Vol]136 mmol/P943-487GzzzgnvvzTuscarawas HospitalThyrotropin [Units/volume] in Serum or PlasmaOrdered By: Teresa Lynch on 02-15-8808HYI Qn3.62 m[IU]/L0.45-5.33T[facility]carawas HospitalTriglyceride [Mass/volume] in Serum or PlasmaOrdered By: Teresa Lynch on 30-12-6558Zreemgqixjml [Mass/Vol]497 mg/dL0-149[facility] Comment on above:If the triglyceride result is greater than 400, LDLC and related calculations cannot be calculated and resulted.TRIG ATP III CLASSIFICATIONTRIG less than 150 mg/dL NormalTRIG 150-199 mg/dL Borderline highTRIG 200-500 mg/dL High TRIG greater than 500 mg/dL Very highStandard traceable to the Center for Disease Conrtrol and Prevention (CDC) test method. Urate [Mass/volume] in Serum or PlasmaOrdered By: Teresa Lynch on 36-68-8455Mnoht [Mass/Vol]6.2 mg/dL2.4-7.6FWhite HospitalUrea nitrogen [Mass/volume] in Serum or PlasmaOrdered By: Teresa Lynch on 85-96-6403Axgy nitrogen [Mass/Vol]15 mg/dL7-25T[facility]awas HospitalWBC Auto (Bld) [#/Vol]Ordered By: Teresa Lynch on 26-94-2763DYW (Bld) [#/Vol]12.4 10*3/uL4.1-10.5 [facility] HospitalA1C HEMOGLOBINon 95-91-8924SgF5e (Bld) [Mass fraction]%5 [employer] [facility] [employer] Other HbA1c (Bld) [Mass fraction]on 24-95-6612I7M HEMOGLOBIN [facility] [employer] Other Tobacco Screening.on 40-83-1045Gnfln depression screening assessmentWoodwinds Health Campus 250 DO Work Phone: Tobacco use status CPHSb) NoM-[facility] [place] 250 DO Work Phone: A1C HEMOGLOBINon 27-36-4631GpI8v (Bld) [Mass fraction] 11.8 %[facility] [employer] Other HbA1c (Bld) [Mass fraction]on 07-61-1177J5R HEMOGLOBIN [facility] [employer] Other Vital Signs Date TimeVital SignValuePerforming JxaycwtzaHvjkzkyk50-87-6212 10:51-0400Body ezbkle769.9 cmMokaren Montes MD Work Phone: [phone] Ohjwqf69-58-0547 10:51-0400Body mass index (BMI) [Ratio]28.07 kg/i3YuwmgvjMike Montes MD Work Phone: 1(138)[facility]09-25-2025 10:51-0400Body rldjee09.89 kgMokaren Montes MD Work Phone: 1(679)[facility]09-25-2025 10:51-0400Diastolic blood ejutsuzj13 mm[Hg]Mike Montes MD Work Phone: 1(155)[facility]09-25-2025 10:51-0400Heart rate 75 /minMokaren Montes MD Work Phone: 1(538)[facility]09-25-2025 10:51-9089UiW2% (BldA) [Mass fraction]99 %Mike Montes MD Work Phone: 1(716)[facility]09-25-2025 10:51-0400Systolic blood mm[Hg]Mike Montes MD Work Phone: 1(737)[facility]09-03-2025 09:05-0400Diastolic blood mm[Hg]Fabiana [address] [place], [place] [address]-03-2025 09:05-0400Heart rate71 /minEly [address] [place], [place] [address]2009-03-2025 09:05-0400Systolic blood vnazbdal906 mm[Hg]Fabiana [address] [place], [place] [address]-03-2025 16:13-0400Body lhizro840.88 cmTeresa Fraustos DO Work Phone: [facility]06-03-2025 16:13-0400 Body mass index (BMI) [Ratio]28.2 kg/v2VbdylTeresa Fraustos DO Work Phone: [facility]06-03-2025 16:13-0400 Body .34 kgBrygorge Fraustos DO Work Phone: [facility]06-03-2025 16:13-0400 Diastolic blood tegarkjx77 mm[Hg]Teresa Fraustos DO Work Phone: [facility]06-03-2025 16:13-0400 Heart rate68 /minPhillipan Jetts DO Work Phone: [address] [place], [place] [address]106-03-2025 16:13-0400 Respiratory rate18 /minPhillipan Jetts DO Work Phone: [facility]06-03-2025 16:13-0400 SaO2% (BldA) [Mass fraction]96 %Teresa Fraustos DO Work Phone: [facility]06-03-2025 16:13-0400 Systolic blood frdyfspn349 mm[Hg]Teresagorge Fraustos DO Work Phone: [facility]06-03-2025 13:50-0400 Body fjsecw04.16 kgTeresa Fraustos DO Work Phone: [facility]06-03-2025 13:50-0400 Diastolic blood measstih91 mm[Hg]Teresa Jetts DO Work Phone: [facility]06-03-2025 13:50-0400 Heart rate70 /minPhillipan Kuns DO Work Phone: [facility]06-03-2025 13:50-0400 Respiratory rate18 /minBryan Kuns DO Work Phone: [facility]06-03-2025 13:50-0400 SaO2% (BldA) [Mass fraction]98 %Teresa Fraustos DO Work Phone: [facility]06-03-2025 13:50-0400 Systolic blood wnyvzipg661 mm[Hg]Teresagorge Lynch DO Work Phone: [facility]05-09-2025 13:40-0400 Heart rate62 /minTeresa Lynch DO Work Phone: [facility]05-09-2025 13:40-0400 Respiratory rate20 /minTeresa Fraustos DO Work Phone: 1(534)[address]05-09-2025 08:00-0400 Body eamwmfqzfli75.3 [degF]Teresa Lynch DO Work Phone: 1(404)9-[address] [place], [place] 7486505-09-2025 08:00-0400 Diastolic blood oubrwdes11 mm[Hg]Teresa Rory DO Work Phone: [address] [place], [place] 7486505-09-2025 08:00-0400 SaO2% (BldA) [Mass fraction]96 %Teresa Lynch DO Work Phone: [phone]05-09-2025 08:00-0400 Systolic blood mm[Hg]Teresa Jettcamille DO Work Phone: 1(289)5-[address] [place], [place] 7486505-09-2025 06:00-0400 Body .6 kgTeresa Lynch DO Work Phone: 1([phone])047-[address] [place], [place] 7486505-08-2025 20:48-0400 Body .88 cmTeresa Jetts DO Work Phone: 1(509)1-[address] [place], [place] 7486505-08-2025 20:30-0400 Diastolic blood vhvhkirb82 mm[Hg]Teresa Fraustos DO Work Phone: 1(816)261-[address] [place], [place] 7486505-08-2025 20:30-0400 Heart rate78 /minTeresa Lynch DO Work Phone: 1(372)[address]05-08-2025 20:30-0400 Respiratory rate18 /minTeresa Fraustos DO Work Phone: [address] [place], [place] 4390605-08-2025 20:30-0400 SaO2% (BldA) [Mass fraction]97 %Teresa Fraustos DO Work Phone: 1(492)[address] [place], [place] 4390605-08-2025 20:30-0400 Systolic blood mm[Hg]Teresa Fraustos DO Work Phone: 1(818)[address] [place], [place] 4390605-08-2025 14:36-0400 Body hagfar688.88 cmTeresa Fraustos DO Work Phone: 1(082)[address] [place], [place] 4390605-08-2025 14:36-0400 Body hsrovmvssml59.6 [degF]Teresa Fraustos DO Work Phone: 1(696)[address] [place], [place] 4390605-08-2025 14:36-0400 Body hyiuhc90.45 kgTeresa Fraustos DO Work Phone: 1(311)[address] [place], [place] 4390603-28-2025 09:28-0400 Body .88 cmTeresa Fraustos DO Work Phone: 1(290)[address] [place], [place] 4390603-28-2025 09:28-0400 Body mass index (BMI) [Ratio]27.1 kg/f5OetxdTeresa Fraustos DO Work Phone: 1(772)1-[address] [place], [place] 7486503-28-2025 09:28-0400 Body uekbvl28.71 kgTeresa Fraustos DO Work Phone: 1(301)[address] [place], [place] 4390603-28-2025 09:28-0400 Diastolic blood hnzvehgk52 mm[Hg]Teresa Fraustos DO Work Phone: 1(597)[address] [place], [place] 4390603-28-2025 09:28-0400 Heart rate82 /minTeresa Fraustos DO Work Phone: 1(221)[address] [place], [place] 4390603-28-2025 09:28-0400 Respiratory rate16 /minTeresa Fraustos DO Work Phone: 1(798)6-[address] [place], [place] 7486503-28-2025 09:28-0400 SaO2% (BldA) [Mass fraction]99 %Teresa Fraustos DO Work Phone: 1(585)3-[address] [place], [place] 7486503-28-2025 09:28-0400 Systolic blood ikregzbl793 mm[Hg]Teresa Fraustos DO Work Phone: 1([phone]03-11-2025 15:30-0400 Heart rate66 /minTeresa Fraustos DO Work Phone: 1([phone])[address]03-11-2025 15:30-0400 Respiratory rate20 /minTeresa Fraustos DO Work Phone: 1([phone])[address]03-11-2025 15:14-0400 Diastolic blood bdwvgmam67 mm[Hg]Teresa Fraustos DO Work Phone: [phone]03-11-2025 15:14-0400 SaO2% (BldA) [Mass fraction]99 %Teresa Fraustos DO Work Phone: [phone]03-11-2025 15:14-0400 Systolic blood eymuoaim938 mm[Hg]Teresa Fraustos DO Work Phone: [phone] [address] [address]03-11-2025 08:21-0400 Body .6 [degF]Teresa Fraustos DO Work Phone: 1(221)[address]03-11-2025 06:48-0400 Body .5 kgTeresa Fraustos DO Work Phone: 1(258)[address]03-09-2025 14:57-0400 Body owzfhb321.88 cmPhillipan Jetts DO Work Phone: 1(822)[address]03-09-2025 06:29-0400 Body .88 cmPhillipan Kuns DO Work Phone: [facility]03-09-2025 06:29-0400 Body rqcxhuhuqul65 [degF]Teresa Lynch DO Work Phone: [facility]03-09-2025 06:29-0400 Body atdyte48.3 kgTeresa Lynch DO Work Phone: [facility]03-09-2025 06:29-0400 Diastolic blood mm[Hg]Teresa Lynch DO Work Phone: [facility]03-09-2025 06:29-0400 Heart rate92 /minTeresa Lynch DO Work Phone: [facility]03-09-2025 06:29-0400 Respiratory rate16 /minTeresa Lynch DO Work Phone: [facility]03-09-2025 06:29-0400 SaO2% (BldA) [Mass fraction]99 %Teresa Lynch DO Work Phone: [facility]03-09-2025 06:29-0400 Systolic blood fakouavf157 mm[Hg]Teresa Lynch DO Work Phone: [facility]02-28-2025 09:02-0500 Blood Pressure LocationJENNIFER RASHI [facility]02-28-2025 09:02-0500Body .98 [degF]MARYBEL RASHI [facility]02-28-2025 09:02-0500Diastolic blood ltrymbye89 mm[Hg]MARYBEL RASHI [facility]02-28-2025 09:02-0500Heart rate80 /minJENNDAMION RASHI [facility]02-28-2025 09:02-0500Respiratory rate18 /minMARYBEL VANG [facility]02-28-2025 09:02-0500Systolic blood oxrzdblv925 mm[Hg]MARYBEL VANG [facility]12-23-2024 14:47-0500Blood Pressure LocationPatrick OnAir Player [facility]12-23-2024 14:47-0500Body pygvflvirah47.6 [degF]Yeyo ROWE [facility]12-23-2024 14:47-0500Diastolic blood uixdlsko35 mm[Hg]Yeyo ROWE [facility]12-23-2024 14:47-0500Heart rate70 /minPatrick ROWE [facility]12-23-2024 14:47-0500Respiratory rate16 /minPatrick ROWE [facility]12-23-2024 14:47-0500Systolic blood evgfgqqz523 mm[Hg]Yeyo ROWE [facility]12-03-2024 16:35-0500Body ekrgtyfvcwr78 [degF]Teresa Lynch DO Work Phone: [facility]12-03-2024 16:35-0500 Diastolic blood xnuxkvnk61 mm[Hg]Teresa Lynch DO Work Phone: [facility]12-03-2024 16:35-0500 Heart rate79 /minTeresa Lynch DO Work Phone: [facility]12-03-2024 16:35-0500 Respiratory rate16 /minTeresa Lynch DO Work Phone: [facility]12-03-2024 16:35-0500 SaO2% (BldA) [Mass fraction]99 %Teresa Lynch DO Work Phone: [facility]12-03-2024 16:35-0500 Systolic blood yqoiusjo51 mm[Hg]Teresa Lynch DO Work Phone: [facility]11-20-2024 11:04-0500 Diastolic blood fmfnxtex73 mm[Hg]Kait Dan MD Work Phone: 1(296)938-[address] [place], [place] 3357211-20-2024 11:04-0500 Heart rate86 /Ab Dan MD Work Phone: 1(892)487-[address] [place], [place] 3357211-20-2024 11:04-0500 SaO2% (BldA) [Mass fraction]99 %Kait Dan MD Work Phone: [address] [place], [place] 6376411-20-2024 11:04-0500 Systolic blood ykwacmlo611 mm[Hg]Kait Dan MD Work Phone: [address] [place], [place] 6376411-19-2024 14:30-0500 Diastolic blood ybqpfrad27 mm[Hg]Kait Dan MD Work Phone: [facility]11-19-2024 14:30-0500 Heart rate74 /Ab Dan MD Work Phone: [facility]11-19-2024 14:30-0500 Respiratory rate18 /Ab Dan MD Work Phone: [facility]11-19-2024 14:30-0500 SaO2% (BldA) [Mass fraction]98 %Kait Dan MD Work Phone: [facility]11-19-2024 14:30-0500 Systolic blood opvpqaui377 mm[Hg]Kait Dan MD Work Phone: 1(062)[address]11-19-2024 12:52-0500 Body agficg553.88 cmAtae Dan MD Work Phone: 1(495)[address] [place], [place] 7686411-19-2024 12:52-0500 Body ojilhx15.45 kgKait Dan MD Work Phone: 1(330)[address] [place], [place] 7686410-31-2024 16:48-0400 Body nyjohy26.45 kgKait Dan MD Work Phone: 1(346)[address] [place], [place] 7686410-31-2024 14:00-0400 Diastolic blood tpjbeftz14 mm[Hg]Kait Dan MD Work Phone: 1(218)[address] [place], [place] 7686410-31-2024 14:00-0400 Heart rate86 /minKait Dan MD Work Phone: 1(329)[address] [place], [place] 7686410-31-2024 14:00-0400 Respiratory rate18 /Ab Dan MD Work Phone: 1(829)[address] [place], [place] 7686410-31-2024 14:00-0400 SaO2% (BldA) [Mass fraction]97 %Kait Dan MD Work Phone: 1(760)[address] [place], [place] 7686410-31-2024 14:00-0400 Systolic blood etdgmrnu358 mm[Hg]Kait Dan MD Work Phone: 1(472)[address] [place], [place] 7686410-17-2024 10:30-0400 Diastolic blood ibuicqdz28 mm[Hg]MD Kait Dan Work Phone: 1(557)682-[address] [place], [place] 3357210-17-2024 10:30-0400 Heart rate95 /minMD Kait Dan Work Phone: 1(719)400-[address] [place], [place] 3357210-17-2024 10:30-0400 Systolic blood jectorkd774 mm[Hg]MD Kait Dan Work Phone: 1(423)[address] [place], [place] 5595310-15-2024 17:26-0400 Body psytyebbhzc48.01 [degF]Guero Tam DO [facility]: [facility] Xhcqsl46-88-1271 17:26-0400Diastolic blood rsnekdjr37 mm[Hg]Guero Mclong DO Work Phone: [facility] Txfjly71-39-7829 17:26-0400Heart rate 85 /minDennis Jesusitalong DO Work Phone: [facility] Rbpnqy59-28-3720 17:26-0400 Respiratory rate19 /minDennis Jesusitalong DO Work Phone: [facility] Iqtjia08-76-5298 17:26-3448JfK6% (BldA) [Mass fraction]96 %Guero Harrisng DO Work Phone: [facility] Jdawsm14-82-2538 17:26-0400Systolic blood mm[Hg]Guero Harrisng DO Work Phone: [facility] Pulczz87-15-2406 18:27-0400Body mass index (BMI) [Ratio]26.75 kg/v0Stirll Furlong DO Work Phone: [facility] Mvmgae43-53-9046 18:27-0400Body frrmyfnobfc38.01 [degF]Guero Harrisng DO Work Phone: [facility] Mbkqls99-12-5288 18:27-0400Body gxjuoo90.45 kgDenjunito Harrisng DO Work Phone: [facility] Acbgwx75-78-9236 18:27-0400Diastolic blood uwlonzlf89 mm[Hg]Guero Harrisng DO Work Phone: [facility] Remgwm75-15-5769 18:27-0400Heart rate 84 /minDadeolais Jesusitalong DO Work Phone: [facility] Todswf55-83-3537 18:27-0400 Respiratory rate18 /minDennis Jesusitalong DO Work Phone: [facility]10-11-2024 18:27-0154HnV5% (BldA) [Mass fraction]95 %Guero Tam DO Work Phone: [facility]10-11-2024 18:27-0400Systolic blood mm[Hg]Guero Tam DO Work Phone: [facility]10-09-2024 11:08-0400Body zccuvgxwomt73.8 [degF]MD Kait Dan Work Phone: [facility]10-09-2024 11:08-0400 Diastolic blood ieobbbeb46 mm[Hg]MD Kait Dan Work Phone: 1(493)713-[address] [place], [place] 3357210-09-2024 11:08-0400 Heart rate77 /minMD Kait Dan Work Phone: 1(232)066-[address] [place], [place] 3357210-09-2024 11:08-0400 Respiratory rate16 /minMD Kait Dan Work Phone: 1(315)945-[address] [place], [place] 3357210-09-2024 11:08-0400 SaO2% (BldA) [Mass fraction]99 %MD Kait Dan Work Phone: 1(010)739-70[facility]10-09-2024 11:08-0400 Systolic blood gbaufddy059 mm[Hg]MD Kait Dan Work Phone: [facility]10-09-2024 06:00-0400 Body wxldic94.2 kgMD Kait Dan Work Phone: 1(693)971-[address] [place], [place] 3357210-05-2024 12:29-0400 Body .34 cmMD Kait Dan Work Phone: 1(599)780-65[facility]10-04-2024 21:00-0400 Diastolic blood mm[Hg]MD Kait Dan Work Phone: 1(872)100-02[facility]10-04-2024 21:00-0400 Heart rate93 /minMD Kait Dan Work Phone: 1(759)328-[address] [place], [place] 3357210-04-2024 21:00-0400 SaO2% (BldA) [Mass fraction]97 %MD Kait Dan Work Phone: 1(421)088-[address] [place], [place] 3357210-04-2024 21:00-0400 Systolic blood izkxovaj079 mm[Hg]MD Kait Dan Work Phone: 1(189)[address]10-04-2024 20:30-0400 Respiratory rate16 /minMD Kait Dan Work Phone: 1(649)[address]10-04-2024 20:07-0400 Body jtyajvogots08.4 [degF]MD Kait Dan Work Phone: 1(849)[address]10-04-2024 14:10-0400 Body gidcvw416.34 cmMD Kait Dan Work Phone: 1(177)[address] [place], [place] 5595310-04-2024 14:10-0400 Body yhzydh19.3 kgMD Kait Dan Work Phone: 1(234)[address]10-02-2024 15:51-0400 Body cckkcmycapt65.1 [degF]MD Kait Dan Work Phone: 1(097)[address]10-02-2024 15:51-0400 Diastolic blood tijlzgkz75 mm[Hg]MD Kait Dan Work Phone: 1(394)[address]10-02-2024 15:51-0400 Heart rate78 /minMD Kait Dan Work Phone: 1(030)321-[address] [place], [place] 3357210-02-2024 15:51-0400 Respiratory rate16 /minMD Kait Dan Work Phone: 1(273)485-[address] [place], [place] 3357210-02-2024 15:51-0400 SaO2% (BldA) [Mass fraction]97 %MD Kait Dan Work Phone: 1(298)821-[address] [place], [place] 3357210-02-2024 15:51-0400 Systolic blood yvngkmig595 mm[Hg]MD Kait Dan Work Phone: [facility]10-02-2024 05:29-0400 Body .9 kgMD Kait Dan Work Phone: 1(071)630-[address] [place], [place] 3357210-01-2024 14:26-0400 Body etbjyt059.88 cmMD Kait Dan Work Phone: 1(865)[address]09-29-2024 17:00-0400 Diastolic blood mm[Hg]MD Kait Dan Work Phone: 1(430)720-[address] [place], [place] 3357209-29-2024 17:00-0400 Heart rate86 /minMD Kait Dan Work Phone: 1(930)[address]09-29-2024 17:00-0400 Respiratory rate20 /minMD Kait Dan Work Phone: 1(153)[address]09-29-2024 17:00-0400 SaO2% (BldA) [Mass fraction]100 %MD Kait Dan Work Phone: 1(400)607-[address] [place], [place] 3357209-29-2024 17:00-0400 Systolic blood wfxysgpv158 mm[Hg]MD Kait Dan Work Phone: 1(219)281-[address] [place], [place] 3357209-29-2024 13:45-0400 Body .88 cmMD Kait Dan Work Phone: 1(309)907-[address] [place], [place] 3357209-29-2024 13:45-0400 Body qpuyycrspth09.9 [degF]MD Kait Dan Work Phone: 1(467)385-[address] [place], [place] 3357209-29-2024 13:45-0400 Body .5 kgMD Kait Dan Work Phone: 1(345)604-[address] [place], [place] 3357209-26-2024 09:27-0400 Body axnxpn583.9 cmMike Montes MD Work Phone: 1(647)[facility]26[facility]2024 09:27-0400Body mass index (BMI) [Ratio]26.85 kg/n5Phgpwetkaren Montes MD Work Phone: 1(328)[facility] Curjma58-62-1615 09:27-0400Body jpsvkjicpyq59.01 [degF]Mike Montes MD Work Phone: 1(356)[facility] Qsspji11-12-8059 09:27-0400Body ivwcle06.81 kgMike Montes MD Work Phone: 1(864)[facility] Isjgaw62-53-3037 09:27-0400Diastolic blood xigwwqlz24 mm[Hg]Mike Montes MD Work Phone: 1(344)[facility] Fzaxtm21-93-1294 09:27-0400Heart rate 77 /minMike Montes MD Work Phone: 1(238)[facility] Klkncc39-54-5124 09:27-0400 Respiratory rate20 /minMike Montes MD Work Phone: 1(118)[facility] Ylksku03-19-4969 09:27-4365LdY2% (BldA) [Mass fraction]99 %Mike Montes MD Work Phone: 1(168)[facility] Rrvrus69-28-0123 09:27-0400Systolic blood ilrqisii08 mm[Hg]Mike Montes MD Work Phone: 1(558)[facility] Cofvei20-24-9346 14:52-0400Body mass index (BMI) [Ratio]26.65 kg/w7Bebhug Furlong DO Work Phone: [facility] Zoylcd19-35-0781 14:52-0400Body kuozouthsyz66.01 [degF]Guero Furlong DO Work Phone: [facility] Zjdwmg39-72-0904 14:52-0400Body eibjsd34.13 kgDennis Furlong DO Work Phone: [facility] Cqqedn67-94-7763 14:52-0400Diastolic blood akwrtujk66 mm[Hg]Guero Furlong DO Work Phone: [facility] Aygqov40-85-8358 14:52-0400Heart rate 95 /minDennis Furlong DO Work Phone: [facility]09-25-2024 14:52-0400 Respiratory rate18 /minDennis Furlong DO Work Phone: [facility]09-25-2024 14:52-2192VmP8% (BldA) [Mass fraction]98 %Guero Furlong DO Work Phone: [facility]09-25-2024 14:52-0400Systolic blood enxgutxl923 mm[Hg]Guero Mclong DO Work Phone: [facility]09-18-2024 17:40-0400Hourly RoundingMohamed Simon [address]09-18-2024 17:40-0400 Promise to ReturnMohamed Simon [address]09-18-2024 16:32-0400 Hourly RoundingMohamed Simon [address]09-18-2024 16:32-0400 Promise to ReturnMohamed Simon [address]09-18-2024 15:00-0400 Hourly RoundingMohamed Simon [address]09-18-2024 15:00-0400 Promise to ReturnMohamed Simon [address]09-18-2024 10:51-0400Heart rate70 /minMohamed Simon [address] [place], [place] 4314509-18-2024 10:51-4257QuG9% (BldA) [Mass fraction]100 %Mike Halean [address]09-18-2024 10:47-0400Body rnnzlqotzzp31.06 [degF]Mike Simon [address] [place], [place] 8264809-18-2024 10:46-0400 Diastolic blood ufquokrq49 mm[Hg]Mike Halean [address] [place], [place] 8264809-18-2024 10:46-0400Mean blood cehgxvtb86 mm[Hg]Mike Simon [address] [place], [place] 8264809-18-2024 10:46-0400 Systolic blood oxuncdpe256 mm[Hg]Mike Simon [address] [place], [place] 8264809-18-2024 10:15-0400Blood Pressure LocationMohamed Simon [address] [place], [place] 8264809-18-2024 10:15-0400 Diastolic blood udbaqxrd53 mm[Hg]Mike Halean [address] [place], [place] 8264809-18-2024 10:15-0400Heart rate76 /minMohamed Simon [address] [place], [place] 8264809-18-2024 10:15-0400Mean blood lejzgtbo45 mm[Hg][facility] [address] [place], [place] 8264809-18-2024 10:15-6378ZmH9% (BldA) [Mass fraction]100 %[facility] Halean [address] [place], [place] 8264809-18-2024 10:15-0400 Systolic blood arvzemzt561 mm[Hg]Mike Simon [address] [place], [place] 8264809-18-2024 08:27-0400 Diastolic blood ztludpwl78 mm[Hg]Mike Simon [address] [place], [place] 8264809-18-2024 08:27-0400 Systolic blood kpjgvhhu390 mm[Hg]Mike Simon [address] [place], [place] 8264809-18-2024 08:25-0400Heart rate50 /minMohamed Simon [address] [place], [place] 8264809-18-2024 07:36-0400Heart rate68 /minMohamed Simon [address] [place], [place] 8264809-18-2024 07:36-3136IrB1% (BldA) [Mass fraction]100 %Mike Halean [address] [place], [place] 8264809-18-2024 07:36-0400Mean blood elmvcqec37 mm[Hg]Mike Halean [address] [place], [place] 8264809-18-2024 07:36-0400Body lmzjzezwbzp20.52 [degF]Mike Simon [address] [place], [place] 8264809-18-2024 00:00-0400Blood Pressure LocationMokaren Montes [address] [place], [place] 8264809-18-2024 00:00-0400Body jwmwkhsypzr81.52 [degF]Mike Halean [address] [place], [place] 8264809-18-2024 00:00-0400Mean blood mm[Hg]Mike Halean [address] [place], [place] 8264809-17-2024 21:16-0400Heart rate83 /minMohamed Simon [address] [place], [place] 8264809-17-2024 19:29-0400Mean blood cnkiidfa03 mm[Hg]Merlynnegro Simon [address] [place], [place] 8264809-17-2024 19:29-0400Body hzaffmsxbpm59.06 [degF]Merlynnegro Simon [address] [place], [place] 8264809-17-2024 15:37-0400gluc 104 mg/dLMokaren Montes [address] [place], [place] 8264809-17-2024 11:00-0400Body alcdcgimutl50.42 [degF]Mike Montes [address] [place], [place] 8264809-17-2024 11:00-0400gluc 165 mg/dLMohamed Simon [address] [place], [place] 8264809-17-2024 11:00-0400Mean blood eagtpjec80 mm[Hg]Mohamed Simon [address] [place], [place] 8264809-17-2024 09:36-0400Heart rate96 /minMohamed Simon [address] [place], [place] 8264809-17-2024 09:00-0400gluc 250 mg/dLMohamed Simon [address] [place], [place] 8264809-17-2024 09:00-0400 Respiratory rate16 /minMohamed Simon [address] [place], [place] 8264809-17-2024 05:00-0400 Respiratory rate18 /minMohamed Simon [address] [place], [place] 8264809-16-2024 23:00-0400 Respiratory rate18 /minMohamed Simon [address] [place], [place] 8264809-12-2024 05:17-0400Heart rate83 /minMohamed Simon [address] [place], [place] 8264809-12-2024 00:28-0400Heart rate83 /minMohamed Simon [address] [place], [place] 8264809-11-2024 06:15-0400Heart rate89 /minMohamed Simon [address] [place], [place] 8264809-09-2024 16:40-0400 Respiratory rate17 /minMohamed Simon [address] [place], [place] 8264809-09-2024 16:15-0400Body sumxigkkawe16.7 [degF]Mohamed Simon [address] [place], [place] 8264809-09-2024 16:15-0400 Respiratory rate19 /minMohamed Simon [facility]09-09-2024 16:00-0400 Respiratory rate18 /minMike Montes [facility]09-09-2024 14:46-0400Body ervtepfaqcw50.06 [degF]Mike Montes [facility]08-15-2024 08:56-0400Body yjtemr552.9 cmMike Montes MD Work Phone: 1(893)[facility]08-15-2024 08:56-0400Body mass index (BMI) [Ratio]27.8 kg/d7SnjcsgyMike Montes MD Work Phone: 1(810)[facility]08-15-2024 08:56-0400Body .99 kgMokaren Montes MD Work Phone: 1(086)[facility]08-15-2024 08:56-0400Diastolic blood evcujmue82 mm[Hg]Mike Montes MD Work Phone: 1(361)[facility]08-15-2024 08:56-0400Heart rate 122 /minMike Montes MD Work Phone: 1(208)[facility]08-15-2024 08:56-9742MiM1% (BldA) [Mass fraction]100 %Mike Montes MD Work Phone: 1(680)[facility]08-15-2024 08:56-0400Systolic blood wryfglqi630 mm[Hg]Mike Montes MD Work Phone: 1(619)[facility]08-14-2024 12:34-0400Body akkwbp911.[address] [place], [place] 2360808-14-2024 12:34-0400Body mass index (BMI) [Ratio]28.62 kg/m2Ely [address] [place] [address] 01-17-2024 12:34-0400Body .[address] [place] [address] 01-17-2024 12:34-0400Diastolic blood mm[Hg]Fabiana [facility]08-14-2024 12:34-0400Systolic blood mm[Hg]Recluse 2 [facility]06-27-2024 23:10-0400Body mass index (BMI) [Ratio]27.86 kg/v3Xddhvf Furlong DO Work Phone: [facility] Xvljfc96-75-2424 23:10-0400Body zeasjvydfsh39.3 [degF]Guero Mclong DO Work Phone: [facility] Ilfvll95-29-6588 23:10-0400Body thqwic36.17 kgDenjunito Mclong DO Work Phone: [facility] Dlwylv01-84-3577 23:10-0400Diastolic blood gxaeyuks98 mm[Hg]Guero Mclong DO Work Phone: [facility] Ajethw36-41-3791 23:10-0400Heart rate 70 /Milena Mclong DO Work Phone: [facility] Ycfqbn58-91-8455 23:10-0400 Respiratory rate18 /minDadeolais Jesusitalong DO Work Phone: [facility] Wzdjoj04-09-1185 23:10-7401IxB5% (BldA) [Mass fraction]98 %Guero Mclong DO Work Phone: [facility] Mmhqsw86-05-0410 23:10-0400Systolic blood yglmiqcj259 mm[Hg]Guero Mclong DO Work Phone: [facility] Slhrvp43-10-2717 08:49-0400Body fadwul516.9 cmMike Montes MD Work Phone: 1(884)[facility] Beunyk80-52-0408 08:49-0400Body mass index (BMI) [Ratio]28.21 kg/d8CleatctMike Montes MD Work Phone: 1(609)[facility] Exxvfu23-87-7959 08:49-0400Body .35 kgMokaren Montes MD Work Phone: 1(463)[facility] Lukndj24-16-8167 08:49-0400Diastolic blood mm[Hg]Mike Montes MD Work Phone: 1(727)[facility] Fctevs09-62-3356 08:49-0400Heart rate 94 /minMike Montes MD Work Phone: 1(170)[facility] Deoodb98-13-4514 08:49-9564JwK4% (BldA) [Mass fraction]99 %Mike Montes MD Work Phone: 1(097)[facility] Ddkyvt40-34-2341 08:49-0400Systolic blood uqvuddsa184 mm[Hg]Mike Montes MD Work Phone: 1(333)[facility] Trywfd70-93-0440 18:59-0400Body mass index (BMI) [Ratio]27.85 kg/k9Dtgwra Furlong DO Work Phone: [facility] Svbmzo51-67-3408 18:59-0400Body zpygdommazm32.4 [degF]Guero Mclong DO Work Phone: [facility] Dykqlt74-95-0641 18:59-0400Body guonrm27.17 kgDenjunito Mclong DO Work Phone: [facility] Peqmyr01-14-8005 18:59-0400Diastolic blood oasovftt82 mm[Hg]Guero Furlong DO Work Phone: [facility] Nqawxb57-19-9172 18:59-0400Heart rate 68 /minDennis Jesusitalong DO Work Phone: [facility] Vhiyhl82-17-2581 18:59-0400Systolic blood yqhkfyxi457 mm[Hg]Guero Jesusitalong DO Work Phone: [facility] Osdxkc00-91-6850 15:50-0400Body pegezrgfbgi92.4 [degF]Guero Furlong DO Work Phone: [facility]26-5363 15:50-0400Diastolic blood pmpeszog27 mm[Hg]Guero Tam DO Work Phone: [facility] Rdstnh34-82-8320 15:50-0400Heart rate 77 /Milena Harrisng DO Work Phone: [facility]06-04-2024 15:50-0400Systolic blood kzvamegh478 mm[Hg]Guero Harrisng DO Work Phone: [facility]05-31-2024 14:11-0400Body mass index (BMI) [Ratio]28.02 kg/p1LtejivGuero Harrisng DO Work Phone: [facility]05-31-2024 14:11-0400Body nhcnswzvoiw09.7 [degF]Guero Tam DO Work Phone: [facility]05-31-2024 14:11-0400Body .71 kgGuero Tam DO Work Phone: [facility] Ggsbvj33-65-8789 14:11-0400Diastolic blood muaocifr64 mm[Hg]Guero Tam DO Work Phone: [facility]05-31-2024 14:11-0400Heart rate 75 /Milena Harrisng DO Work Phone: [facility]05-31-2024 14:11-0400 Respiratory rate20 /Milena Harrisng DO Work Phone: [facility]05-31-2024 14:11-6703TcC8% (BldA) [Mass fraction]97 %Guero Tam DO Work Phone: [facility]05-31-2024 14:11-0400Systolic blood uesmasnm901 mm[Hg]Guero Tam DO Work Phone: [facility] Ybwflp43-50-5439 22:00-0400Body mass index (BMI) [Ratio]29.7 kg/e4Qwzpxxjunito Harrisng DO Work Phone: [facility]05-22-2024 22:00-0400Body yrizdouflbk84.59 [degF]Guero Harrisng DO Work Phone: [facility]05-22-2024 22:00-0400Body svoylu30.34 kgDenjunito Harrisng DO Work Phone: [facility]05-22-2024 22:00-0400Diastolic blood trgqvfyi85 mm[Hg]Guero Harrisng DO Work Phone: [facility] Lxnrub12-92-3862 22:00-0400Heart rate 70 /Milena Harrisng DO Work Phone: [facility] Esasyd18-93-5559 22:00-0400 Respiratory rate20 /Milena Harrisng DO Work Phone: [facility] Geirql72-90-8289 22:00-1058VbS9% (BldA) [Mass fraction]97 %Guero Harrisng DO Work Phone: [facility] [id number] 22:00-0400Systolic blood yzbtflbp931 mm[Hg]Guero Tam DO Work Phone: [facility] [id number] 10:56-0400Body dfarvz053.9 cmRaulito Inman MD Work Phone: [facility]05-21-2024 10:56-0400 Diastolic blood rdyhcktg59 mm[Hg]Raulito Inman MD Work Phone: [facility]05-21-2024 10:56-0400 Heart ppux271 /minRaulito Inman MD Work Phone: [facility]05-21-2024 10:56-0400 Systolic blood mm[Hg]Raulito Inman MD Work Phone: [facility]05-20-2024 09:37-0400 Blood Pressure LocationMokaren Montes [facility]05-20-2024 09:37-0400 Diastolic blood nfgxooyf81 mm[Hg]Mike Montes [facility]05-20-2024 09:37-0400Heart mymy938 /minMokaren Montes [facility]05-20-2024 09:37-9228BdR5% (BldA) [Mass fraction]98 %Mike Montes [facility]05-20-2024 09:37-0400 Systolic blood wiakqett788 mm[Hg]Mike Montes [facility]05-15-2024 08:26-0400 Diastolic blood qofqpcjs79 mm[Hg]Mike Montes MD Work Phone: 1(544)[facility]05-15-2024 08:26-0400Systolic blood ahrssshm042 mm[Hg]Mike Montes MD Work Phone: 1(739)[facility]05-15-2024 08:25-0400Body .9 cmMike Montes MD Work Phone: 1([phone])[facility]05-15-2024 08:25-0400Body mass index (BMI) [Ratio]28.07 kg/f0OapfonuMike Montes MD Work Phone: 1(102)[facility]05-15-2024 08:25-0400Body .89 kgMike Montes MD Work Phone: 1(985)[facility]05-14-2024 13:51-0400Body xwhgxayizpj07.4 [degF]Guero Furlong DO Work Phone: [facility]05-14-2024 13:51-0400Body ivqjyo39.89 kgDennis Furlong DO Work Phone: [facility]05-14-2024 13:51-0400Diastolic blood fdthguqw45 mm[Hg]Guero Furlong DO Work Phone: [facility]05-14-2024 13:51-0400Heart rate 94 /minDennis Furlong DO Work Phone: [facility]05-14-2024 13:51-0400 Respiratory rate18 /minDennis Furlong DO Work Phone: [facility]05-14-2024 13:51-4668KaY8% (BldA) [Mass fraction]97 %Guero Furlong DO Work Phone: [facility]05-14-2024 13:51-0400Systolic blood ileikjhk010 mm[Hg]Guero Furlong DO Work Phone: [facility]05-07-2024 23:33-0400Body mcyperqunli71.1 [degF]Guero Mclong DO Work Phone: [facility] Ghefea52-29-9509 23:33-0400Diastolic blood kibdreye75 mm[Hg]Guero Furlong DO Work Phone: [facility]05-07-2024 23:33-0400Heart rate 102 /Saúlis Furlong DO Work Phone: [facility]05-07-2024 23:33-0400 Respiratory rate18 /Saúlis Furlong DO Work Phone: [facility]05-07-2024 23:33-1442GgT3% (BldA) [Mass fraction]98 %Guero Furlong DO Work Phone: [facility]05-07-2024 23:33-0400Systolic blood neyoquda890 mm[Hg]Guero Furlong DO Work Phone: [facility]05-03-2024 16:50-0400Body agmbjqtarxa18.4 [degF]Guero Mclong DO Work Phone: [facility]05-03-2024 16:50-0400Body .89 kgDenjunito Mclong DO Work Phone: [facility]05-03-2024 16:50-0400Diastolic blood isrccmgp89 mm[Hg]Guero Mclong DO Work Phone: [facility]05-03-2024 16:50-0400Heart rate 98 /Milena Mclong DO Work Phone: [facility]05-03-2024 16:50-0400 Respiratory rate18 /minDadeolais Jesusitalong DO Work Phone: [facility]05-03-2024 16:50-8397EkZ1% (BldA) [Mass fraction]96 %Guero Mclong DO Work Phone: [facility]05-03-2024 16:50-0400Systolic blood pokuhoxl603 mm[Hg]Guero Mclong DO Work Phone: [facility]02-26-2024 12:00-0500Diastolic blood tcovlgfx74 mm[Hg]DO Teresa Lynch Work Phone: [facility]02-26-2024 12:00-0500 Heart rate75 /Kade Lynch Work Phone: [facility]02-26-2024 12:00-0500 Systolic blood mqpmenzs776 mm[Hg]DO Teresa Fraustos Work Phone: [facility]02-26-2024 08:33-0500 Respiratory rate18 /Kade Fisheran Jetts Work Phone: [facility]02-07-2024 18:03-0500 Diastolic blood mm[Hg]DO Teresa Fraustos Work Phone: [facility]02-07-2024 18:03-0500 Heart rate76 /minDO Teresa Lynch Work Phone: [facility]02-07-2024 18:03-0500 Respiratory rate20 /minDO Teresa Lynch Work Phone: [facility]02-07-2024 18:03-0500 SaO2% (BldA) [Mass fraction]98 %DO Teresa Lynch Work Phone: [facility]02-07-2024 18:03-0500 Systolic blood srxysfjj594 mm[Hg]DO Teresa Lynch Work Phone: [facility]02-07-2024 16:15-0500 Body nefvfk509.88 cmDO Teresa Lynch Work Phone: [facility]02-07-2024 16:15-0500 Body powxudtpger12.9 [degF]DO Teresa Lynch Work Phone: [facility]02-07-2024 16:15-0500 Body zfruzb22.25 kgDO Teresa Lynch Work Phone: [facility]12-29-2023 10:56-0500 Blood Pressure LocationPabrenda ROWE [facility]12-29-2023 10:56-0500Body cpmkzawuuct31.98 [degF]Yeyoneel ROWE [facility]12-29-2023 10:56-0500Diastolic blood jhhhpvku24 mm[Hg]Yeyo ROWE [facility]12-29-2023 10:56-0500Heart rate68 /minYeyo ROWE [facility]12-29-2023 10:56-0500Systolic blood qpychptu475 mm[Hg]Yeyo ROWE [facility]11-02-2023 13:15-0400Body pipxyi177.34 cmTeresa Lynch Other [employer] Other 11-02-2023 13:15-0400Body mass index (BMI) [Ratio] 29.43 kg/a1WazmkTeresa Lynch Other [employer] Other 11-02-2023 13:15-0400Body okidei96.71 kgTeresa Lynch Other [employer] Other 11-02-2023 13:15-0400Diastolic blood dqkircxm81 mm[Hg] Teresa Lynch Other [employer] Other 11-02-2023 13:15-0400Respiratory rate18 /minTeresa Lynch Other [employer] Other 11-02-2023 13:15-6367SaA4% (BldA) [Mass fraction]97 % Teresa Lynch Other [employer] Other 11-02-2023 13:15-0400Systolic blood xoqvguks355 mm[Hg] Teresa Lynch Other [employer] Other 10-11-2023 08:30-0400Body usodke275.34 cmTeresa Lynch Other [employer] Other 10-11-2023 08:30-0400Body mass index (BMI) [Ratio] 29.01 kg/q0IuvgbTeresa Lynch Other [employer] Other 10-11-2023 08:30-0400Body yumkal23.35 kgTeresa Lynch Other [facility] [employer] Other 10-11-2023 08:30-0400Diastolic blood njbqojai40 mm[Hg] Teresagorge Fraustocamille Other [facility] [employer] Other 10-11-2023 08:30-0400Respiratory rate16 /minTeresa Lynch Other [place] [employer] Other 10-11-2023 08:30-7063HwT7% (BldA) [Mass fraction]97 % Teresa Fraustocamille Other [place] [employer] Other 10-11-2023 08:30-0400Systolic blood mm[Hg] Teresa [facility]ustocamille Other [facility] [employer] Other 09-13-2023 10:04-0400Body mupxfp216.88 cmTeresa Lynch Work Phone: mp210-0282ZJ-Wcrwe [place] [facility] 250 DO Work Phone: 1(326) 537-446309-13-2023 10:04-0400Body mass index (BMI) [Ratio] 28.62 kg/j6JmxbwTeresa Lynch Work Phone: mp941-7192YC-Karav [place] [facility] DO Work Phone: 1(847) 220-562709-13-2023 10:04-0400Body surface area Derived from formula2.18 a9Cmead Mari Lynch Work Phone: mp037-6305WL-Tvnio [place] [facility] 250 DO Work Phone: 1(837) 342-848609-13-2023 10:04-0400Body cwokwm76.71 kgPhillipgorge Mari Lynch Work Phone: mp497-4778BS-Swozc [place] [facility] DO Work Phone: 1(412) 301-689609-13-2023 10:04-0400Diastolic blood orliudpk54 mm[Hg] Teresa Lynch Work Phone: mp908-9118CP-Mpmvt [place] [facility] 250 DO Work Phone: 1(152) 677-422109-13-2023 10:04-0400Heart rate76 /minTeresa Lynch Work Phone: mp235-6927FR-Rdvmd [facility] DO Work Phone: 1(896) 131-803909-13-2023 10:04-0400Systolic blood mm[Hg] Teresa Lynch Work Phone: mp380-1884QN-Autyc [facility] DO Work Phone: 1(612) 564-749208-28-2023 10:23-0400Blood Pressure LocationPatrick ROWE [facility]08-28-2023 10:23-0400Diastolic blood repyvtco52 mm[Hg]Yeyo ROWE [facility]08-28-2023 10:23-0400Heart rate68 /minPatrick ROWE [facility]08-28-2023 10:23-0400Respiratory rate16 /minPatrick ROWE [facility]08-28-2023 10:23-0400Systolic blood baaxlnpb769 mm[Hg]Yeyo ROWE [facility]08-09-2023 15:08-0400Body .34 cmTeresa Lynch Work Phone: mp009-0925MZ-Cmmdv [place] [facility] 600 DO Work Phone: 1(651) 617-810308-09-2023 15:08-0400Body mass index (BMI) [Ratio] 30.13 kg/y5Rosvd Mari Lynch Work Phone: mp790-0455PE-NyxgcSt. [facility] 600 DO Work Phone: 1(875)[phone] 15:08-0400Body surface area Derived from formula2.18 l8Ridge Mari Lynch Work Phone: 1(935) [phone]-[facility]rpq[facility] 600 DO Work Phone: 1(833) 268-564808-09-2023 15:08-0400Body cqisim42.98 kgTeresa Mari Lynch Work Phone: 1(391) [phone]-TrvcrNorth [facility] Health Hospital 600 DO Work Phone: 1(283)[phone] 15:08-0400Diastolic blood wtaidlvw37 mm[Hg] Teresa Mari Lynch Work Phone: 1(951) [phone]-NoxqeNorth [facility] 600 DO Work Phone: 1(828)[phone] 15:08-0400Heart rate74 /minTeresa Mari Lynch Work Phone: 1(299) [phone]-TjvjaNorth Memorial Health Hospital 600 DO Work Phone: 1(120) 898-794308-09-2023 15:08-0400Systolic blood liwhmfbd113 mm[Hg] Teresagorge Lynch Work Phone: 1(952) [phone]-YomxrNorth [facility] 600 DO Work Phone: 1(185) 611-121906-29-2023 12:45-0400Body zvegqm459.34 cmTeresa Lynch Other [employer] Other 06-29-2023 12:45-0400Body mass index (BMI) [Ratio] 29.73 kg/j5UlimdTeresa Lynch Other [employer] Other 06-29-2023 12:45-0400Body .71 kgTeresa Lynch Other [employer] Other 06-29-2023 12:45-0400Diastolic blood rokujavj55 mm[Hg] Teresa Rory Other [employer] Other 06-29-2023 12:45-0400Respiratory rate18 /minTeresa Lynch Other [employer] Other 06-29-2023 12:45-1146FnD7% (BldA) [Mass fraction]94 % Teresa Lynch Other [employer] Other 06-29-2023 12:45-0400Systolic blood yukicgbp549 mm[Hg] Teresa Lynch Other [employer] Other 06-21-2023 11:38-0400Blood Pressure LocationPaour lady of bellef[facility] hospitalk [employer] [facility]06-21-2023 11:38-0400Diastolic blood vixqttyj59 mm[Hg]Yeyo [employer] [facility]06-21-2023 11:38-0400Heart rate76 /minPatrick ROWE [facility]06-21-2023 11:38-0400Systolic blood erergugc110 mm[Hg]Yeyo [employer] [facility]01-30-2023 10:30-0500Body .34 cmTeresa Lynch Other [employer] Other 01-30-2023 10:30-0500Body mass index (BMI) [Ratio] 29.43 kg/y6AlerpTeresa Lynch Other [employer] Other 01-30-2023 10:30-0500Body kxcexg90.71 kgTeresa Lynch Other [employer] Other 01-30-2023 10:30-0500Diastolic blood dwtenmcq00 mm[Hg] Teresa Fraustos Other [employer] Other 01-30-2023 10:30-0500Respiratory rate16 /minTeresa Fraustos Other [employer] Other 01-30-2023 10:30-0500Systolic blood fgimcwxs346 mm[Hg] Teresagorge Fraustos Other [employer] Other 09-13-2022 13:45-0400Body .34 cmTeresa Lynch Other [employer] Other 09-13-2022 13:45-0400Body mass index (BMI) [Ratio] 30.12 kg/n5DhqxrTeresa Lynch Other [employer] Other 09-13-2022 13:45-0400Body wsafbu05.98 kgTeresa Lynch Other [employer] Other 09-13-2022 13:45-0400Diastolic blood mtqmstab09 mm[Hg] Teresa Fraustos Other [employer] Other 09-13-2022 13:45-0400Respiratory rate16 /minTeresa Fraustos Other [employer] Other 09-13-2022 13:45-6590CrZ2% (BldA) [Mass fraction]96 % Teresa Jettcamille Other [place] [employer] Other 09-13-2022 13:45-0400Systolic blood xuqpwdkq060 mm[Hg] Teresa Lynch Other [place] [employer] Other 05-24-2022 10:01-0400Body qluddj921.34 cmTeresa Guerra Rory Work Phone: mp510-1119VW-Bmfnr [facility] DO Work Phone: 1(791) 599-508405-24-2022 10:01-0400Body mass index (BMI) [Ratio] 29.99 kg/q7FteraTeresa Fraustocamille Work Phone: mp216-0326KM-Qtavx [facility] DO Work Phone: 1(171) 344-402605-24-2022 10:01-0400Body surface area Derived from formula2.17 s1Dlcxm Mari Lynch Work Phone: mp592-9720ER-Colge [facility] DO Work Phone: 1(337) 230-738805-24-2022 10:01-0400Body .52 kgTeresa Mari Lynch Work Phone: mp662-3539PL-Ydyzo [facility] 250 DO Work Phone: 1(797) [phone] 10:01-0400Diastolic blood kiihtzic36 mm[Hg] Teresa Lynch Work Phone: mp817-4319QY-Nephg [facility] 250 DO Work Phone: 1(823) [phone] 10:01-0400Heart rate68 /minTeresa Fraustos Work Phone: mp512-2293NO-Vozxn [facility] DO Work Phone: 1(414) 216-213205-24-2022 10:01-0400Systolic blood rjzbukyf757 mm[Hg] Teresa Lynch Work Phone: 1(888) [phone]-Segct [facility] DO Work Phone: 1(305) 103-756705-17-2022 12:20-0400Body cesfdi857.34 cmAtorsten Tonydariuscamille Other [employer] Other 05-17-2022 12:20-0400Body mass index (BMI) [Ratio] 30.65 kg/m2Amina Ameliecamille Other [employer] Other 05-17-2022 12:20-0400Body jkkcnhiebnd42.8 [degF]Amina Fagan Other [employer] Other 05-17-2022 12:20-0400Body osujjs47.7 kgAmina Ameliecamille Other [employer] Other 05-17-2022 12:20-0400Diastolic blood tnhivpjq94 mm[Hg] Amina Ameliecamille Other [employer] Other 05-17-2022 12:20-0400Respiratory rate18 /minAmina Ameliecamille Other [employer] Other 05-17-2022 12:20-8985OpM4% (BldA) [Mass fraction]98 % Norrisjuan Ameliecamille Other [employer] Other 05-17-2022 12:20-0400Systolic blood pjfuusww786 mm[Hg] Amina Amelies Other [employer] Other 02-22-2022 14:00-0500Body dmobnk604.34 cmTeresa Lynch Other [employer] Other 02-22-2022 14:00-0500Body mass index (BMI) [Ratio]30.4 kg/s5McbdyTeresa Lynch Other [employer] Other 02-22-2022 14:00-0500Body hbuhir89.88 kgTeresa Lynch Other [employer] Other 02-22-2022 14:00-0500Diastolic blood mm[Hg] Teresa Fraustocamille Other [employer] Other 02-22-2022 14:00-0500Respiratory rate18 /minTeresa Lynch Other [employer] Other 02-22-2022 14:00-7640FtB0% (BldA) [Mass fraction]98 % Teresa Lynch Other [employer] Other 02-22-2022 14:00-0500Systolic blood ginambjs286 mm[Hg] Teresa Lynch Other [employer] Other Encounters Encounter DateEncounter TypeCare ProviderFacilityStart: 03-13-2025 End: 34-17-8698Ireeqcyjh encounterTammbartolome Aguilar CMAProMedica Jobst Vascular FremontStart: 02-27-2025 End: 00-67-4590Gpyrwf outpatient new 45 minutesMokaren Montes MD Work Phone: ProMediYoutegot Vascular FremontComment on above: 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) (Primary Dx); Hx of right BKA (CMS-HCC); Cigarette smokerStart: 02-27-2025 End: 53-51-6147nxsqaghijmVVESZNW [facility] PPGStart: 02-05-2025 End: 34-12-5848pjuphcnskyKNJBED M [facility]art: 02-05-2025 End: 40-14-9545Yenqslskec hospital visit by Mike Gómeza Nm Admin Room 1[facility] CenterComment on above:Chest pain, unspecified typeStart: 01-31-2025 End: 77-17-2311qmigivnfgcJhtjizd R WATERSFacility:EU BellevueStart: 01-31-2025 End: 40-43-9345Jrnyiwu encounter procedureYeyo ROWE [facility] start: 01-02-2025 End: 25-46-8861Bfomedyup encounterAngie Urban CMAProMedica Jobst Vascular FremontStart: 11-05-2024 End: 26-42-2586aryrjjwzuhGahdw Jetts DO Work Phone: [facility] Work Phone: Start: 11-05-2024 End: 10-81-7330Mnzwg Kuns DO Work Phone: [facility] Work Phone: Start: 11-05-2024 End: 63-87-4596vhugwpvgqoQbltp Jetts DO Work Phone: [facility] Work Phone: Start: 11-05-2024 End: 12-44-7400Renvg Kuns DO Work Phone: [facility] [place] Work Phone: Start: 10-26-2024 End: 26-29-5420Klsgkvi encounter procedureBrygorge Fraustos DO Work Phone: [facility] [place] Work Phone: Start: 10-26-2024 End: 81-36-5255Jdank Kuns DO Work Phone: [facility] [place] Work Phone: Start: 10-26-2024 End: 57-14-7770zilhndmdhmTwnrs Kuns DO Work Phone: [facility] Work Phone: Start: 10-10-2024 End: 26-22-0674qyhsldgstaTrmea KunsFacility:[facility] Start: 10-10-2024 End: 20-17-4764Vmdkozduop and management of inpatientBryan Jetts DO Work Phone: [facility] Work Phone: Start: 75-52-5374jtyxbccbggo encounterBryan Jetts DO Work Phone: [facility] Work Phone: Start: 10-10-2024 End: 78-68-8661Wdmxa Kuns DO Work Phone: [facility] Work Phone: Start: 31-96-3551alllgtgpnjSQUDOBNK E PERRYFacility:EU BellevueStart: 09-27-2024 End: 47-36-4864rpyujprspzYjruszb R WATERSFacility:EU BellevueStart: 08-30-2024 End: 30-08-0609mqrnmxwenxQpics Kuns DO Work Phone: [facility] Work Phone: Start: 08-30-2024 End: 66-83-0234Eylbehc encounter procedureBryan Jetts DO Work Phone: [facility] Family [facility] [place] Work Phone: Start: 08-30-2024 End: 62-92-1030Ifspy Kuns DO Work Phone: [facility] [place] Work Phone: Start: 09-81-3447Prx-patient / Non-visitBryan Kuns DO Work Phone: [facility] Work Phone: Start: 88-45-8317Lkpdf Kuns DO Work Phone: [facility] Work Phone: Start: 08-11-2024 End: 27-88-9726Ovrqjmuceb and management of inpatientBryan Kuns DO Work Phone: [facility] Work Phone: Start: 08-11-2024 End: 08-88-8303Kbkkf Kuns DO Work Phone: [facility] Work Phone: Start: 08-02-2024 End: 88-10-3184enigwtysreVCXLEPIP E PERRYFacility:EU [place]vueStart: 08-02-2024 End: 94-19-6444Txsbfit encounter procedureJENNIFER E RASHI [facility] Aurelio start: 37-01-8655Mwq-patient / Non-visitBryan Kuns DO Work Phone: [facility] GroupPe[facility] Work Phone: Start: 07-23-2024 End: 83-44-5205Bhmgtnkrfy RecurringBryan Kuns DO Work Phone: [facility]-Physical Therapy [place] CreekStart: 22-09-1881Yzflwxswts RecurringBryan Kuns DO Work Phone: [facility]-Physical Therapy [place] CreekStart: 07-23-2024 End: 62-65-5282gmptszigmxEygtr Kuns DO Work Phone: [facility] Work Phone: Start: 05-27-2024 End: 53-60-4077iuczhuvtlyVyzmmbg R WATERSFacility:FTMCStart: 05-27-2024 End: 36-52-1905Ycm Drop offYeyo ROWE [facility] Start: 05-27-2024 End: 62-53-4037ljjngnblqaIbxotxs R WATERSFacility:EU [place]vueStart: 05-27-2024 End: 33-40-7568Nuiuwjb encounter procedureYeyo ROWE [facility] [place] start: 05-07-2024 End: 13-68-8921Pugqfel encounter procedureTeresa Lynch DO Work Phone: [facility] [place] Work Phone: Start: 04-24-2024 End: 12-47-9123daecglsezuShcyjq R Russell MD Work Phone: [facility] Work Phone: Start: 04-24-2024 End: 64-05-2387Xgkqnuk encounter procedureKait Dan MD Work Phone: [facility] Rehab and Spine Work Phone: Start: 44-93-1798Whq-patient / Non-visitKait Dan MD Work Phone: [facility] Work Phone: Start: 04-23-2024 End: 67-26-0663Oxzfrbwjq to same day surgery centerKait Dan MD Work Phone: [facility]-Digestive Health Work Phone: Start: 04-23-2024 End: 09-66-6990wuvuuznslbHjiwtp R Russell MD Work Phone: [facility] Work Phone: Start: 02-83-1758Kmc-patient / Non-visitKait Dan MD Work Phone: [facility] Work Phone: Start: 04-04-2024 End: 17-76-0741jcwiuulknxGH Ashley R Russell Work Phone: [facility] Work Phone: Start: 04-04-2024 End: 38-17-3592Qxxgann encounter procedureMD Kait Dan Work Phone: [facility] Work Phone: Start: 04-44-3040Fmm-patient / Non-visitMD Kait Dan Work Phone: [facility] Work Phone: Start: 03-22-2024 End: 68-68-8850Wicxtcctk encounterKelEdgefield County HospitalComment on above:Blood Sugar Problem (High blood sugars)Start: 03-21-2024 End: 32-88-0472zjyyvpreytOF Ashley R Russell Work Phone: [facility] Work Phone: Comment on above:History of right below knee amputation (CMS-HCC) (Primary Dx)Start: 03-21-2024 End: 80-28-1260Aivqtcv encounter procedureMD Kait Dan Work Phone: [facility]all [facility] Work Phone: Start: 03-21-2024 End: 71-68-5132DL Kait Dan Work Phone: firjamieWeimi [facility] Work Phone: Start: 03-19-2024 End: 82-55-4250espygorpkqVicocc Ines Mcloasim DO Work Phone: [facility] Physicians Internal Medicine - Family MedicineComment on above:Diabetic polyneuropathy associated with type 2 diabetes mellitus ([facility]-HCC) (Primary Dx); Encounter for orthopedic aftercare following surgical amputation; Other abnormalities of gait and mobility; Restless leg syndromeStart: 03-15-2024 End: 69-69-0174wromqrgdugVnswtx Anel DO Work Phone: [facility] Internal Medicine - Family MedicineComment on above:Diabetic polyneuropathy associated with type 2 diabetes mellitus (CMS-HCC) (Primary Dx); Disorientation; Other abnormalities of gait and mobility; Status post partial amputation of right foot (CMS-HCC); Atherosclerosis of telida coronary artery of telida heart without angina pectoris; Atrial fibrillation ([facility]-HCC); Primary hypertensionStart: 03-15-2024 End: 03-14-8497Nkpxyxqpg encounterAllbertrand Kim [facility] Physicians Jobst VascularStart: 65-17-5267ptaxrwwwedROSBEZCSt. [facility] Center Ambulatory PPGStart: 31-78-6791Eea-patient / Non-visitMD Kait Dan Work Phone: firVidAngelh [facility] Work Phone: Start: 99-37-2627YQ Kait Dan Work Phone: [facility] Work Phone: Start: 86-59-2687Xvy-patient / Non-visitMD Kait Dan Work Phone: [facility] Med OutPt Work Phone: Start: 80-43-9438QXMD Kait Dan Work Phone: [facility] Work Phone: Start: 03-08-2024 End: 68-34-6936Xpaqhrzgrt and management of inpatientMD Kait Dan Work Phone: [facility] Work Phone: Start: 03-08-2024 End: 48-30-7559ER Kait Dan Work Phone: [facility] Work Phone: Start: 03-08-2024 End: 75-84-6217Vbytlgwck department patient visitMOPiedmont [facility] Hospital PPGStart: 18-32-2356Xsw-patient / Non-visitMD Kait Dan Work Phone: [facility] Gastroenterology Work Phone: Start: 06-81-5707AE Kait Dan Work Phone: [facility] Gastroenterology Work Phone: Start: 03-04-2024 End: 97-88-1872Nsnkfaqpxl and management of inpatientMD Kait Dan Work Phone: [facility] Work Phone: Start: 03-04-2024 End: 80-59-1796KF Kait Dan Work Phone: [facility] Work Phone: Start: 64-55-9473Sbposysaqo and management of inpatientMD Kait Dan Work Phone: [facility] Work Phone: Start: 72-56-7380nuvvkklkxks encounterMD Kait Dan Work Phone: [facility] Work Phone: Start: 02-29-2024 End: 02-78-2118Ecedni follow up visit related to original pxMike Montes MD Work Phone: [facility]Gal[facility] Hospitalca [facility]icians [facility]t Vascular SurgeryComment on above:PAD (peripheral artery disease) ([facility]-HCC) (Primary Dx)Start: 02-28-2024 End: 93-00-1991vzespodhwhFnlccc G Furlong DO Work Phone: [facility] Internal Medicine - Family MedicineComment on above:Encounter for orthopedic aftercare following surgical amputation (Primary Dx); Cigarette smoker; Diabetic polyneuropathy associated with type 2 diabetes mellitus ([facility]); Other abnormalities of gait and mobility; Muscle spasmStart: 02-23-2024 End: 90-89-4320ggdbdosvruMwgvdg Ines Mckayleeasim DO Work Phone: [facility] Internal Medicine - Family MedicineComment on above:Encounter for orthopedic aftercare following surgical amputation (Primary Dx); Other abnormalities of gait and mobility; BPH with obstruction/lower urinary tract symptoms; Diabetic polyneuropathy associated with type 2 diabetes mellitus ([facility]); Atherosclerosis of telida coronary artery of telida heart without angina pectoris; Heart failure, unspecified HF chronicity, unspecified heart failure type ([facility]); Primary hypertension; Peripheral arterial disease ([facility]); Chronic obstructive pulmonary disease, unspecified COPD type ([facility]); Gastroesophageal reflux disease, unspecified whether esophagitis present; Muscle weakness (generalized)Start: 02-12-2024 End: 56-40-8350Dcdfnkgxnu and management of inpatientMD Mike Montes Facility:FTMCStart: 07-55-9518kykjglonltDvvznfe R WATERSFacility:[facility] [place] Start: 90-43-5218esdqmvzicnMymbcse JenniferMary MontesFacility:FTMCStart: 02-12-2024 End: 34-75-1808Jupujebiri and management of inpatientDerekkaren Jasiel Simon [facility] Start: 94-10-9485Yxc-patient / Non-visitMD Kait Dan Work Phone: [facility] Physician [facility] Work Phone: Start: 86-47-6079YN Kait Dan Work Phone: [facility] Work Phone: Start: 02-01-2024 End: 16-49-4315Tmiahlsom Result EncounterMohamed Myriam Montes MD Work Phone: [facility] External Department UnsolicitedStart: 02-01-2024 End: 89-78-5479Qzqmkmfnv Result EncounterMohamed Myriam Montes MD Work Phone: [facility] External Department UnsolicitedStart: 02-01-2024 Non-patient / Non-visitMD Kait Dan Work Phone: [facility] Physician [facility] Work Phone: Start: 07-26-7350RS Kait Dan Work Phone: [facility] Work Phone: Start: 38-56-1969Reb-patient / Non-visitMD Kait Dan Work Phone: [facility] Work Phone: Start: 01-83-8381UK Kait Dan Work Phone: [facility] Work Phone: Start: 01-18-2024 End: 23-36-1902Nadifs outpatient visit 25 minutesMohamed Jennifer Montes MD Work Phone: [facility] Jobst Vascular SurgeryComment on above: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) (Primary Dx); Cigarette smokerStart: 01-17-2024 End: 47-18-8656Fsycbjvowh hospital visit by Mike Allred [place] Room [address] [place], [place] [address]Comment on above:Shortness of breathStart: 01-08-2024 End: 78-07-2946kqljaqlsehPI Mike MontesFacility:FTMCStart: 44-76-1294Nsg- patient / Non-visitMD Kait Dan Work Phone: [facility] Physician Group-[facility] [place] Work Phone: Start: 87-79-8091ZI Kait Dan Work Phone: [facility] [place] Work Phone: Start: 01-01-2024 End: 38-03-3696mdjcjaruaiLBDXFIFPiedmont [facility] AmbulatoryStart: 01-01-2024 End: 35-58-5115Llslnkuld for preprocedural cardiovascular examinationPiedmont [facility] AmbulatoryStart: 19-73-6063Twi-patient / Non-visitMD Kait Dan Work Phone: [facility] GroupAs[facility] Out[facility] Work Phone: Start: 35-24-4986UR Kait Dan Work Phone: [facility] Physician [facility] OutPt Work Phone: Start: 78-70-9124Yzb-patient / Non-visitMD Kait Dan Work Phone: firVidAngelq Physician [facility]Pe[facility] Work Phone: Start: 53-52-5872ZA Kait Dan Work Phone: [facility] Phys[facility] GroupPe[facility] Work Phone: Start: 99-37-4248Hxw-patient / Non-visitMD Kait Dan Work Phone: [facility] Phys[facility] [place] Work Phone: Start: 43-43-5876ER Kait Dan Work Phone: [facility] Physician Group-[facility] [place] Work Phone: Start: 91-57-1542Qiv-patient / Non-visitMD Kait Dan Work Phone: firraysalp Physician Group-[facility] [place] Work Phone: Start: 14-64-7437TC Kait Dan Work Phone: [facility] Work Phone: Start: 86-97-7555Ohj-patient / Non-visitMD Kait Dan Work Phone: [facility]Pe[facility] Work Phone: Start: 55-58-9475HD Kait Dan Work Phone: [facility]Pe[facility] Work Phone: start: 92-26-2514Gnr-patient / Non-visitMD Kait Dan Work Phone: [facility]Pe[facility] Work Phone: Start: 03-12-2143UR Kait Dan Work Phone: firraysaln Physician GroupPe[facility] Work Phone: Start: 57-69-7969Tcl-patient / Non-visitMD Kait Dan Work Phone: [facility]Pe[facility] Work Phone: Start: 49-62-7338FX Kait Dan Work Phone: [facility] Physician [facility] Work Phone: Start: 12-21-2023 End: 35-45-5594Deinoj outpatient visit 25 minutesMike Montes MD Work Phone: [phone] Comment on above: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 ([facility]) (Primary Dx)Start: 12-15-2023 End: 70-85-5048yiiyxaxisnRJ Teresa Rory Work Phone: [facility] Work Phone: Start: 12-15-2023 End: 09-90-3228Urovwzit ReferredDO Teresa Lynch Work Phone: [facility]-LAB [facility] HospStart: 12-15-2023 End: 24-62-1966OE Kait Dan Work Phone: [facility] HospStart: 99-11-0536Kmc-patient / Non-visitMD Kait Dan Work Phone: [facility] Physician [facility] OutPt Work Phone: Start: 67-87-5896CQ Kait Dan Work Phone: [facility] Physician [facility] OutPt Work Phone: Start: 13-96-0104Vzr-patient / Non-visitDO Teresa Rory Work Phone: firVidAngeld Physician GroupPe[facility] Work Phone: Start: 02-63-5243RO Kait Dan Work Phone: [facility] Physician [facility]Pe[facility] Work Phone: Start: 20-29-5811Meo-patient / Non-visitDO Teresagorge Lynch Work Phone: [facility]Pe[facility] Work Phone: Start: 82-17-2763CTMD Kait Dan Work Phone: firAereo Physician GroupPe[facility] Work Phone: Start: 11-30-2023 End: 10-03-4367qmlbtkiejrUcmxyk G Furlong DO Work Phone: [facility] Internal Medicine - Family MedicineComment on above: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) (Primary Dx); 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 (CMS-HCC); Delayed surgical wound healing of foot amputation stump (CMS-HCC); Other abnormalities of gait and mobilityStart: 11-30-2023 End: 63-59-6919Ybtnau follow up visit related to original Radha Montes MD Work Phone: [facility] V[facility] W[facility] Comment on above: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) (Primary Dx); Cigarette smoker motivated to quitStart: 42-01-9054Ejn-patient / Non-visitDO Teresa Lynch Work Phone: [facility] Work Phone: Start: 11-24-2023 End: 85-80-8609pwysenbmwkRsluxx G Furlong DO Work Phone: [facility] Physicians Internal Medicine - Family MedicineComment on above:Status post partial amputation of right foot (CMS-HCC) (Primary Dx); Other abnormalities of gait and mobility; Leg edema; Primary hypertension; Hypotension due to drugs; 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); Diabetic polyneuropathy associated with type 2 diabetes mellitus (CMS-HCC)Start: 11-23-2023 End: 73-08-0483vkddgdtxouLICKWAL C DERISOProMedica Midvale HospitalStart: 11-15-2023 End: 41-31-5869etkbntdfpvKLSW D FLO[facility]ITAL FOR CHILDRENProMedica Ashley HospitalStart: 65-56-0969Qoe-patient / Non-visitDO Teresa Lynch Work Phone: [facility] Work Phone: Start: 11-14-2023 End: 18-96-6535Bfxkckhztf and management of inpatientMOHAMED OSMANProMedica Marina HospitalStart: 11-10-2023 End: 99-30-8028Xqrbakuaj Yuniel Yu MD Work Phone: [facility] VascularStart: 11-07-2023 End: 07-46-3306Romrcvyxhm and management of inpatientARMELLE Snehal AQUINOChildren's Hospital for Rehabilitation HospitalStart: 11-07-2023 End: 67-02-8984wzczyulcsvHfeimr G Furlong DO Work Phone: [facility] Internal Medicine - Family MedicineComment on above:Peripheral arterial disease (CMS-HCC) (Primary Dx); Delayed surgical wound healing of foot amputation stump (CMS-HCC); Other abnormalities of gait and mobility; Status post partial amputation of right foot (CMS-HCC); Pressure ulcer of right ankle, stage 3 (CMS-HCC); Type 2 diabetes mellitus with stage 4 chronic kidney disease, without long-term current use of insulin (CMS-HCC)Start: 11-07-2023 End: 30-65-3699Atmrisvwgs and management of inpatientMOHAMED F GabrielaOhiohealth Nelsonville Health Center HospitalStart: 11-03-2023 End: 32-91-8892atqbflrpwrDavpzc Ines Tam DO Work Phone: [facility] Internal Medicine - Family MedicineComment on above:Status post partial amputation of right foot (CMS-HCC) (Primary Dx); Pressure ulcer of right ankle, stage 3 (CMS-HCC); Other abnormalities of gait and mobility; Delayed surgical wound healing of foot amputation stump (CMS-HCC)Start: 10-25-2023 End: 71-32-1896zibdbtjxkvXppvoh Ines Tam DO Work Phone: [facility] Phys[facility] Internal Medicine - Family MedicineComment on above:Status post partial amputation of right foot (CMS-HCC) (Primary Dx); Osteomyelitis of right foot, unspecified type (CMS-HCC); Muscle weakness (generalized); Other abnormalities of gait and mobility; Chronic obstructive pulmonary disease, unspecified COPD type (CMS-HCC); Peripheral arterial disease (CMS-HCC)Start: 85-29-3091Hixytxlmfpbw state94 [address] StreetStart: 87-08-3220Leclihlev for preprocedural cardiovascular examinationPiedmont [facility] Ambulatory Start: 10-24-2023 End: 01-18-1001Ndiwre outpatient visit 25 minutesRaulito Inman MD Work Phone: [facility] CenterComment on above:History of PTCA; Hyperlipidemia, unspecified hyperlipidemia type; Encounter for pre-operative cardiovascular clearance; Former smokerStart: 10-24-2023 End: 98-90-0886Tclnyxs encounter Lisa Inman MD Work Phone: [facility] Work Phone: Start: 10-23-2023 End: 13-35-6096eohsuofixcADDedra MontesFacility:FTMCStart: 10-23-2023 End: 13-94-8484Ridcxpj encounter procedureMokaren Montes [facility] Start: 10-19-2023 End: 37-83-1521vwcoklnxxbJXDedra MontesFacility:FTMCStart: 10-19-2023 End: 43-73-7391Bvfnyvg encounter procedureMokaren Weathers Simon [facility] Start: 10-18-2023 End: 45-61-7873Rsbjzneys encounterAlejuan Aguilar Jobst VascularStart: 10-18-2023 End: 81-70-0662Tvuaam outpatient new 45 minutesMike Montes MD Work Phone: [facility] Jobst VascularComment on above: 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 ([facility]) (Primary Dx); Poor circulation; Heavy tobacco smoker >10 cigarettes per dayStart: 10-18-2023 End: 77-20-1050ggioqkksdjNOXPUEOGinger Pillai Marina HospitalStart: 10-17-2023 End: 88-67-8102lliqmlkebqIxhdlc G Furlong DO Work Phone: [facility] Internal Medicine - Family MedicineComment on above:Status post partial amputation of right foot ([facility]) (Primary Dx); 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 ([facility]); Type 2 diabetes mellitus with stage 4 chronic kidney disease, without long-term current use of insulin ([facility])Start: 10-10-2023 End: 48-81-4143vxaewapyglGmuhpa Ines Alchip Work Phone: [facility] Physicians Internal Medicine - Family MedicineComment on above:Diarrhea, unspecified type (Primary Dx); Other acute osteomyelitis of right foot (CMS-HCC); Status post partial amputation of right foot ([facility]); Chronic obstructive pulmonary disease, unspecified COPD type ([facility]); Abscess of right foot; Type 2 diabetes mellitus with stage 4 chronic kidney disease, without long-term current use of insulin ([facility])Start: 10-06-2023 End: 01-62-9943xerfqffnugYdwxnj G Furlong DO Work Phone: [facility] Physicians Internal Medicine - Family MedicineComment on above:Abscess of right foot (Primary Dx); Status post partial amputation of right foot ([facility]); Type 2 diabetes mellitus with stage 4 chronic kidney disease, without long-term current use of insulin ([facility]); Atherosclerosis of telida coronary artery of telida heart without angina pectoris; Bacterial sepsis ([facility]); Other acute osteomyelitis of right foot ([facility]); Chronic obstructive pulmonary disease, unspecified COPD type ([facility]); Cigarette smoker; BPH with obstruction/lower urinary tract symptoms; Gastroesophageal reflux disease, unspecified whether esophagitis present; Restless leg syndrome; Hyperlipidemia, unspecified hyperlipidemia type; Carpal tunnel syndrome, unspecified laterality; Heart failure, unspecified HF chronicity, unspecified heart failure type ([facility])Start: 90-15-1438Wge-patient / Non-visitDO Teresa Lynch Work Phone: [facility] Physician GroupPe[facility] Work Phone: Start: 10-05-2023 End: 24-68-2872mxggpqzxihLH Bryan Kuns Work Phone: [facility] Work Phone: Start: 10-05-2023 End: 39-08-2912Qicfleup ReferredDO Teresa Lynch Work Phone: [facility]-LAB [facility] HospStart: 86-91-0364Fnf-patient / Non-visitDO Teresa Lynch Work Phone: [facility] Physician Group-[facility] Work Phone: Start: 56-15-0874Apg-patient / Non-visitDO Teresa yLnch Work Phone: [facility] Physician Group-[facility] Work Phone: Start: 81-99-7873Ark-patient / Non-visitDO Teresa Lynch Work Phone: [facility] Physician Group-[facility] Work Phone: Start: 10-02-2023 End: 40-11-7633nvcyzrpvkcPR Teresa Lynch Work Phone: [facility] Work Phone: Start: 10-02-2023 End: 04-20-3055Diyvajch ReferredDO Teresa Lynch Work Phone: [facility]-LAB Path Spec [facility] HospStart: 24-56-5947Kuw-patient / Non-visitDO Teresa Lynch Work Phone: [facility] Physician Group-[facility] Work Phone: Start: 02-62-4097Tul-patient / Non-visitDO Teresa Lynch Work Phone: [facility] Work Phone: Start: 78-70-0601Qae-patient / Non-visitDO Teresa Lynch Work Phone: [facility] Physician Group-[facility] Work Phone: Start: 42-81-3026Yfg-patient / Non-visitDO Teresa Lynch Work Phone: [facility] Physician GroupPe[facility] Work Phone: Start: 09-21-2023 End: 96-10-4501fellcwktlnII Teresa Lynch Work Phone: [facility] Work Phone: Start: 09-21-2023 End: 53-76-9760Eqovualp ReferredDO Teresa Lynch Work Phone: [facility]-LAB Path [facility] HospStart: 18-51-3042Hja-patient / Non-visitDO Teresa Lynch Work Phone: [facility] Physician GroupPe[facility] Work Phone: Start: 78-72-8812Nva-patient / Non-visitDO Teresa Lynch Work Phone: [facility] Physician GroupPe[facility] Work Phone: Start: 09-08-2023 End: 39-15-6483ypmxbzegxaTrlcrmo R WATERSFacility:EU BellevueStart: 09-08-2023 End: 16-92-8160Nwajibq encounter procedureYeyo ROWE [facility] start: 80-63-5108Mkw-patient / Non-visitDO Teresa Lynch Work Phone: [facility] Physician GroupPe[facility] Work Phone: Start: 62-50-0577Fes-patient / Non-visitDO Teresa Lynch Work Phone: [facility]Pe[facility] Work Phone: Start: 09-37-5606Zdm-patient / Non-visitDO Teresa Lynch Work Phone: [facility] Physician Group-[facility] Work Phone: Start: 83-61-8698Glt-patient / Non-visitDO Teresa Lynch Work Phone: [facility]ician [facility]Pe[facility] Work Phone: Start: 37-07-7841Val-patient / Non-visitDO Teresa Lynch Work Phone: [facility]ician [facility]Pe[facility] Work Phone: Start: 88-39-3925Fys-patient / Non-visitDO Teresa Lynch Work Phone: [facility] Physician [facility] Work Phone: Start: 23-54-3334Mro-patient / Non-visitDO Teresa Lynch Work Phone: [facility] Physician [facility] Work Phone: Start: 87-35-8249Ufmcvyibqo RecurringDO Teresa Lynch Work Phone: [facility]-Infusion Therapy - O/P Work Phone: Start: 78-95-2247Akl-patient / Non-visitDO Teresa Lynch Work Phone: [facility] Physician [facility] Work Phone: Start: 07-12-2023 End: 04-68-9206Ddcaalcmj department patient visitDO Teresa Lynch Work Phone: [facility]-Emergency Room Work Phone: Start: 07-07-2023 End: 13-93-0822hzmonzkhnnSdfuc Kuns Other [facility] [employer] Other Start: 93-65-5576Jqficlgtl encounterTeresa LynchFPG Family Medicine CastaliaStart: 07-03-2023 End: 23-11-8307ltzqkcrsszLiltubz R WATERSFacility:EU BellevueStart: 06-26-2023 End: 47-95-9119altaqrlzbtJflyj Kuns Other [facility] Copy[employer] Other Start: 83-06-8863Ykokftjzu encounterTeresa LynchInes [facility] CastaliaStart: 06-02-2023 End: 77-35-0906mnoyyyyigxRimtawe R WATERSFacility:EU BellevueStart: 06-02-2023 End: 40-67-4610Kbzigrn encounter procedurePatrick R ROWE [facility] start: 05-16-2023 End: 62-75-2095cvvlodzykyKgzzp Kuns Other [facility] [employer] Other Start: 86-32-8480Cnuruzslr encounterPhillipgorge LynchNorfolk State Hospital CastaliaStart: 05-03-2023 End: 38-80-5557yyqprbiehzPatrheb R WATERSFacility:EU yStart: 05-03-2023 End: 47-38-8891Vjbzifs encounter procedurePatrick R ROWE [facility] Start: 04-28-2023 End: 69-92-1953gwthhoebwmTrokg Kuns Other [facility] [employer] Other Start: 28-43-9386Wdcroklpf encounterPhillipgorge FraustoWestover [facility] Base Hospital CastaliaStart: 04-18-2023 End: 51-55-7143ueaudajadjWgzqzbn R WATERSFacility:EU [place]kyStart: 04-18-2023 End: 63-35-3367Ulwbkce encounter procedurePatrick R ROWE [facility] Start: 96-59-9984qdekebmdugFnbmhuo R WATERSFacility:EU [place]vueStart: 04-13-2023 End: 69-35-3065jxuoaoeyitKzzyhzo Viktoria ROWEFacility:CD:[id number]: 04-11-2023 End: 78-80-3667lchdnvmyazFtncd Jetts Other [employer] Other Start: 28-78-3918Oxrulnatz encounterBrygorge LynchInes Family Medicine CastaliaStart: 04-06-2023 End: 04-94-5539gbtbrjttaxMaxlk Kuns Other [employer] Other Start: 20-33-6598Ahigaksmm for other preprocedural examinationBrygorge FraustocamilleHONORHEALTH [facility] Family Medicine CastaliaStart: 26-93-2102Ibepmg outpatient visit 25 minutesTeresa RoryG Family Medicine CastaliaStart: 03-28-2023 End: 56-57-6455guhxauzhfwSmuzi Kuns Other [employer] Other Start: 88-99-8781Ekonrnrdh encounterBrygorge LynchInes Family Medicine CastaliaStart: 45-45-0780ziyzanvobhHidlchr R WATERSFacility:EU ueStart: 03-15-2023 End: 13-70-9640gvpdzurdrfGzbkbco R [employer] PlayerSum[employer] Other Start: 02-77-6905Efpkfm outpatient visit 25 minutes Teresa RoryInes Family Medicine CastaliaStart: 03-10-2023 End: 57-66-6877tbjunzgytsLgifp Kuns Other [employer] Other Start: 14-93-3659Lobohjnty encounterBrygroge LynchG Family Medicine CastaliaStart: 81-15-8544Dqcqdg outpatient visit 15 minutesTeresa Fraustocamille Work Phone: [phone]-TihpeMe[facility]-[place] 250 DO Work Phone: Start: 63-72-0163ffermwtcfwNzsrg SmithFacility: Start: 02-14-2023 End: 78-02-9603Rjaengj encounter procedurePatricgloria Viktoria [employer] [facility] Start: 02-08-2023 End: 46-75-7349Hauderk encounter procedurePatricgloria Viktoria [employer] [facility] Start: 01-30-2023 End: 57-45-6994Wpzhota encounter procedurePatricgloria Viktoria [employer] [facility] start: 05-57-2026nfccupggpqZfulatoryDr. Teresa Lynch Facility:[id number]: 01-17-2023 End: 59-35-5192cwvucqwmeuEbwbo Kuns Other [place] [employer] Other Start: 32-10-8567Pxschohzg encounterTeresa LynchFPG Family Medicine CastaliaStart: 34-13-7605Cvjemg outpatient visit 25 minutesTeresa Fraustocamille Work Phone: [phone]-TapuxMeeker [facility]-[place] 600 DO Work Phone: Start: 02-39-0773glmmaitivmKxqva SmithFacility: Start: 12-28-2022 End: 97-78-2461Ltfduhw encounter procedurePatricgloria Viktoria ROWE [facility] Start: 12-01-2022 End: 56-32-6968jneinwkottPvmvu Kuns Other [employer] Other Start: 73-90-7679Lzrjyp outpatient visit 25 minutes Teresa Tenorio Family [facility] CastaliaStart: 11-23-2022 End: 37-24-8406Vempuvs encounter procedurePatricgloria Viktoria ROWE [facility] [place] Start: 10-07-2022 End: 38-78-4829coqzgjgobuXxgal Kuns Other [employer] Other Start: 29-55-4436Yokbbziag encounterTeresa Tenorio Family Medicine CastaliaStart: 09-27-2022 End: 35-85-3466iguvmmdtwnLA Teresa Lynch Work Phone: [facility] Work Phone: Start: 09-27-2022 End: 23-84-1776Zycquzo encounter procedureDO Teresa Lynch Work Phone: [facility]-Lab Main [place] Work Phone: Start: 09-21-2022 End: 39-66-4939wytzerzenhAgdcx Kuns Other [employer] Other Start: 18-43-8564Mfveiistt encounterTeresa Tenorio Family Medicine CastaliaStart: 09-14-2022 End: 46-32-3890qgwaqrnfvtYdntl Kuns Other [employer] Other Start: 12-67-7242Ifkeaszvh encounterTeresa Tenorio Family Medicine [place]aliaStart: 09-02-2022 End: 06-61-3730Cetjjdg encounter procedureDO Teresa Lynch Work Phone: [facility]-MRI Main [place] Work Phone: start: 08-25-2022 End: 09-86-9117mpbtjycnmjNuxmsy Mapus Other [employer] Other Start: 45-48-1851Jtmabjzya encounterTondra MapusFPG Referral CoordinatorStart: 08-22-2022 End: 15-57-5712dosdxtjzkzNngly Kuns Other [employer] Other Start: 12-84-9682Mtpygptsu encounterBryan JettsFPG Family Medicine CastaliaStart: 08-05-2022 End: 70-91-3984rtxqvkynxeXayhg Kuns Other [employer] Other Start: 05-12-2567Exsnfjmmi encounterBryan JettsFPG Family Medicine CastaliaStart: 08-04-2022 End: 38-18-2116unwhiaqbmaUybnw Kuns Other [employer] Other Start: 39-00-1986Hbamqijxt encounterBryan JettsFPG Family Medicine CastaliaStart: 07-28-2022 End: 24-90-0533rkdzacdwdeGdljg Kuns Other [employer] Other Start: 76-95-4498Fjkdkjmzq encounterBryan JettsFPG Referral CoordinatorStart: 07-25-2022 End: 53-22-2880cifqcgxrneRyort Kuns Other [employer] Other Start: 01-76-4278Gjdatlo evaluation of patient and reportBrygorge FraustosFPG Family Medicine CastaliaStart: 07-19-2022 End: 73-90-8514tfyzcsvivbImbwf Kuns Other [employer] Other Start: 58-75-0650Wjxilnhbm encounterTeresa Tenorio Family Medicine CastaliaStart: 07-15-2022 End: 10-44-3642oeqjbwtxzqTgpyr Kuns Other [employer] Other Start: 66-50-4600Egigtxsga encounterTeresa VillagomezG Family Medicine CastaliaStart: 07-13-2022 End: 24-59-7904qxbabtkfarBxkap Kuns Other [employer] Other Start: 52-05-1767Uduferk evaluation of patient and reportTeresa Jona Family Medicine CastaliaStart: 95-94-0881irxnajffjfSvulatoryDr. Raulito Inman IIFacility:[id number]: 07-05-2022 End: 63-34-6526tniioazorfScpmb Kuns Other [facility] [employer] Other Start: 15-83-6366Alixfedyk encounterPhillipgorge LynchG Family Medicine CastaliaStart: 62-59-7782Vm RenewalTeresa Lynch Work Phone: [phone]-[facility]jlgoPerham Health [facility] 250 DO Work Phone: Start: 07-04-2022 End: 54-25-0452mjohoyekupJukrm Kuns Other [facility] [employer] Other Start: 87-60-9683Tcjfra outpatient visit 25 minutes Teresa FraustoPortia Family Medicine CastaliaStart: 06-30-2022 End: 89-45-7940vygxtxhxcdJsouf Kuns Other [employer] Other Start: 33-37-0758Yzlgjmynm encounterTeresa RoryFPG Family Medicine CastaliaStart: 05-25-2022 End: 97-88-0218qxwijbwjqfGtloy Kuns Other [employer] Other Start: 86-30-4717Gehsqhwej encounterBrygorge VillagomezG Family Medicine CastaliaStart: 04-25-2022 End: 21-62-8834xdovmmhewfUevdm Kuns Other [employer] Other Start: 95-77-6394Oknxbuhje encounterBrygorge LynchFPG Family Medicine CastaliaStart: 04-19-2022 End: 44-02-9165xxduypzbozPwazf Kuns Other [employer] Other Start: 81-65-0135Lynkuciyw encounterBrygorge LynchFPG Family Medicine CastaliaStart: 03-22-2022 End: 18-38-3942hxecnoadahUkoiv Kuns Other [employer] Other Start: 97-25-0408Urhuxgfjs encounterBrygorge LynchFPG Family Medicine CastaliaStart: 03-01-2022 End: 04-13-5430ojtovbfbatDusuw Kuns Other [employer] Other Start: 46-15-6987Xraxnwedp encounterBrygorge LynchFPG Family Medicine CastaliaStart: 02-18-2022 End: 43-61-3550kgyvarpofxXxvmj Kuns Other [employer] Other Start: 99-61-2960Wmoangcne encounterBrygorge LynchFPG Family Medicine CastaliaStart: 02-15-2022 End: 60-56-0456rwrplfuzcaChpc Fitt Other [employer] Other Start: 45-91-8529Gmogpm outpatient visit 25 minutes Teresa RoryFPG Family Medicine CastaliaStart: 91-21-1797Xejfcnjvo encounterDawn [facility] ClinicStart: 01-21-2022 End: 00-51-2924exykbfnmueAfyjx Kuns Other [facility] [employer] Other Start: 86-98-3684Itofqvick encounterBrygorge RoryFPG Family Medicine CastaliaStart: 01-19-2022 End: 96-14-0378xmcmmlxxlkUglec Kuns Other [facility] [employer] Other Start: 12-48-3956Hqsfhmpbi encounterBrygorge RoryFPG Family Medicine CastaliaStart: 01-13-2022 End: 48-51-7015mtxgnvgsstEzzih Kuns Other [facility] [employer] Other Start: 78-65-8120Vcasjdxod encounterBrygorge RoryFPG Family Medicine CastaliaStart: 12-23-2021 End: 62-94-7071bebbscjnffWsjxc Kuns Other [facility] [employer] Other Start: 75-21-1221Uhwbiunqj encounterBrygorge RoryFPG Family Medicine CastaliaStart: 11-24-2021 End: 72-09-3822doxbljyfxwOocai Kuns Other [facility] [employer] Other Start: 64-42-4511Shmubnstd encounterBrygorge LynchFPG Family Medicine CastaliaStart: 98-32-5450Cg RenewalTeresa Lynch Work Phone: [phone]-RugvxGlencoe Regional Health Servicesusky 250 DO Work Phone: Start: 92-50-0210Xsjzxp outpatient visit 25 minutes Teresa Lynch Work Phone: [phone]-PhuwgUnited [facility] 250 DO Work Phone: Start: 10-25-2021 End: 18-64-3961nuznbomcoiGbcus Kuns Other [employer] Other Start: 29-27-4290Xrbemxmab encounterBrygorge FraustosFPG Family Medicine [place]aliaStart: 10-19-2021 End: 57-02-6721ahotngodyaAqtc Bakdariuss Other [employer] Other Start: 75-59-0702Gunnuu outpatient visit 25 minutes Azjuan Jorgensen NephrologyStart: 10-18-2021 End: 61-60-2290mfsfrdngmuKnbu Bakdariuss Other [employer] Other Start: 99-72-4638Ulnmvdhou encounterAzjuan Jorgensen NephrologyStart: 10-12-2021 End: 02-91-0820cozevglnyaHRPXZN PETER .Facility:Q1Ytafz: 10-08-2021 End: 29-12-8392mwxxnonzmkEdbfk Jetts Other [employer] Other Start: 95-54-0905Idvgxntyc encounterBrygorge LynchFPG Family Medicine CastaliaStart: 09-22-2021 End: 05-05-7178nhvjybzrvlRayuk Kuns Other [employer] Other Start: 85-36-8925Iyfmgsmki encounterBryan JettsFPG Family Medicine [place]aliaStart: 09-21-2021 End: 94-06-1736qkjdvddsixGtmqb Kuns Other [employer] Other Start: 81-87-4501Puerevchb encounterBryan JettsFPG Family Medicine CastaliaStart: 08-09-2021 End: 45-08-8079wtqnxcofdpRjkfz Kuns Other [employer] Other Start: 81-00-1823Nkjmriudu encounterPhillipgorge JettPortia Family Medicine CastaliaStart: 08-02-2021 End: 15-86-7395cfkxmikkeeZcwhx Kuns Other [employer] Other Start: 02-53-9171Bfdxkuynj encounterTeresa FraustoEdmundG Family Medicine CastaliaStart: 07-27-2021 End: 34-56-8615batulhanlfSrocg Kuns Other [facility] [employer] Other Start: 68-58-0595Ylgugl outpatient visit 25 minutes Teresa FraustocamilleRIGOBERTO Family Medicine CastaliaStart: 06-23-2021 End: 82-62-7754klbaawmejfMlssr Kuns Other [facility] [employer] Other Start: 70-22-4162Qwbxgghgx encounterTeresa FraustoEdmundG [facility] CareStart: 28-95-2584Lt RenewalTeresa Lynch Work Phone: [phone]-Kbrkj [facility] 250 DO Work Phone: Start: 05-03-2021 End: 37-88-1754pwwkvmxjutWutfo Kuns Other [facility] [employer] Other Start: 02-76-4776Rivisismg encounterTeresa FraustoEdmundG [facility] [place] Procedures DateProcedureProcedure DetailPerforming ClinicianStart: 02-94-4645Bq strs tst xers&/or rx cont ecg trcg Terrence Arnold MD Work Phone: Start: 91-85-7237Qiftg chest X-rayTeresa Lynch DO Work Phone: Start: 02-61-0179FQ angiography of headTeresa Lynch DO Work Phone: Start: 71-84-0127WG angiography of neck vesselsBrygorge Lynch DO Work Phone: Start: 34-37-0364LC of head without contrastBrygorge Lynch DO Work Phone: Start: 46-35-3236Hsots chest X-rayTeresa Lynch DO Work Phone: Start: 75-59-2820LexlplyfbzkqsnaizizlgjxppgZeweih Russell MD Work Phone: Start: 97-41-0652HGG of abdomen with contrast Kaitjana Dan Work Phone: Start: 74-54-0230Bnbiqrhkhtpdayz of liverMD Kait Sy Work Phone: start: 68-89-7093Fdbzy X-ray of left elbowMD Kaitjana Dan Work Phone: start: 24-88-0724Pzgpz X-ray of left shoulderMD Kait Dan Work Phone: Start: 62-70-1189Abylptnzesuniut of bilateral kidneys MD Kati Dan Work Phone: start: 30-76-2490BSD of headMD Kait Dan Work Phone: start: 09-71-1963Uawxu chest X-rayMD Kaitjana Dan Work Phone: start: 49-65-2582WC angiography of headMD Kait Dan Work Phone: start: 76-62-1016KP angiography of neck vesselsMD Kait Dan Work Phone: start: 71-14-0294XP of head without contrastMD Kaitjana Dan Work Phone: start: 83-84-3238Ibefd culture for bacteria, including anaerobic screenMD Kait Sy Work Phone: Start: 26-62-3497Zdufigfavia Panel (PCR)MD Kait Dan Work Phone: Start: 99-82-9717Oapfffakebl Panel (PCR)Kait Dan MD Work Phone: start: 41-31-1523GX Kait Dan Work Phone: start: 06-00-2535Wumdamio resonance angiography of head without contrastMD Kait Dan Work Phone: Start: 56-38-8695Klhqlzxw screenBryan KunsComment on above:Order Comment: Number of units to transfuse now? 1Result Comment: PERFORMED BY:[facility] [place] [place], [place] [phone] MEDICAL DIRECTORCLIFFORD LOBATO M.D.Start: 61-94-1240A- ray of right kneeMD Kait Sy Work Phone: Start: 09-21-8828Sfhgrmg ultrasonography of bilateral carotid arteriesMD Kait Dan Work Phone: Start: 40-58-4285PR of head without contrastMD Kait Dan Work Phone: start: 31-70-1951Dhatqmwr tomography of abdomen and pelvis with contrastMD Kait Dan Work Phone: Start: 50-42-1087HRBM-CoV-2, Influenza & RSV (PCR)MD Kait Dan Work Phone: Start: 80-65-9611Kvvji nucleic acid assayKait Dan MD Work Phone: Start: 30-36-2037Jhdyu chest X-rayMD Kait Dan Work Phone: Start: 62-26-5643Cmqrlhbcub of leg through tibia and fibulaMohamed Simon Start: 73-95-1614JMG CBC WITH AUTO DIFFMohamed Fm Simon HERRERA Work Phone: [phone]: 23-44-9164Zjczjgwayx through metatarsal bones Mohamed Simon Start: 15-14-2425Grjse Culture 1MD Kait Dan Work Phone: Start: 84-33-1788Boioz Culture 2MD Kait Dan Work Phone: Start: 45-84-6377XT Kait Dan Work Phone: Start: 80-51-8005Ityvj Culture 1DO Teresa Lynch Work Phone: Start: 09-36-1991Qlkcn Culture 2DO Teresa Lynch Work Phone: Start: 22-95-1705Yfmsk Culture 1DO Teresa Rory Work Phone: Start: 77-24-6741Geszh Culture 2DO Teresa Lynch Work Phone: Start: 18-02-3014Reyvu depression screening assessment Franny Yu MD Work Phone: [phone]: 21-79-3495Zfe routine ecg w/least 12 lds w/i&r Raulito Inman MD Work Phone: Start: 10-06-2023 End: 52-27-0827Xznusoe of amputation of footStatus post partial amputation of right foot ([facility])Guero cMkayleeasim DO Work Phone: Start: 57-77-8721Xxnm Fast SmearDO Teresa Lynch Work Phone: Start: 07-33-8608ADK Specimen ProcessingDO Teresa Lynch Work Phone: Start: 91-03-1540Dbpfyqcmdaf observation [Identifier] in Unspecified specimen by Gram stainDO Teresa Lynch Work Phone: Start: 19-82-6849Wsovmy CultureDO Teresa Rory Work Phone: Start: 40-89-5444Jehlz Culture 1DO Teresa Lynch Work Phone: Start: 36-24-4351Xezjo Culture 2DO Teresa Lynch Work Phone: Start: 87-96-6657Gyvhk CultureDO Teresa Lynch Work Phone: Start: 31-31-7719Alzcvbywwxu observation [Identifier] in Unspecified specimen by Gram stainDO Teresa Lynch Work Phone: Start: 91-58-8906Wonh Fast CultureDO Teresa Lynch Work Phone: Start: 59-57-2102Jvvf Fast SmearDO Teresa Lynch Work Phone: Start: 69-24-5552MCE Specimen ProcessingDO Teresa Lynch Work Phone: Start: 59-91-7574Nehflfuugpf observation [Identifier] in Unspecified specimen by Gram stainDO Teresa Lynch Work Phone: Start: 26-87-8049Hhjbwh CultureDO Teresa Lynch Work Phone: Start: 50-86-1108Dzbxpwaihsj observation [Identifier] in Unspecified specimen by Gram stainDO Teresa Lynch Work Phone: Start: 38-68-3739Cyyzy Culture 1DO Teresa Lynch Work Phone: Start: 32-60-7253Lxccg Culture 2DO Teresa Lynch Work Phone: Start: 66-09-4281Gsqtyzgzhrk observation [Identifier] in Unspecified specimen by Gram stainDO Teresa Lynch Work Phone: Start: 21-25-0877Zuljs CultureDO Teresa Lynch Work Phone: Start: 12-76-5830Jkway Culture 1DO Teresa Lynch Work Phone: Start: 51-26-4770Wuyge Culture 2DO Teresa Lynch Work Phone: Start: 38-95-7671Ctfmsq scan of lower limb veinsDO Teresa Lynch Work Phone: Start: 65-01-9743Nlmros scan veins of upper limbDO Teresa Lynch Work Phone: Start: 22-72-5447Ksjqp chest X-rayDO Teresa Lynch Work Phone: Start: 91-07-7331Uqpslathmnidh prostatectomyPabrenda ROWE Start: 07-00-6998Cuvprjt of percutaneous transluminal coronary angioplastyHistory of PTCEstefani Inman MD Work Phone: Start: 56-94-9149Khhcumqsmzgiy cystoscopyPabrenda ROWE Start: 05-42-4340FHJ of headDO Teresa Lynch Work Phone: Start: 52-17-3242Yeuwz colonoscopyTeresa Lynch Work Phone: AngiographyMohamed Simon Comment on above:RLE Angiogram with drug coated ballooningAppendectomyPhillipgorge Mari Lynch Work Phone: AppendectomyPaour lady of bellefonte hospitalgloria ROWE Bilateral Carpal Tunnel SurgeryPatrick SOLEDAD Bilateral Eye Surgery 1Patrick SOLEDAD Comment on above:bilateral cataracts with iol implants Bilateral Eye Surgery 2Mohamed Simon Comment on above:bilateral cataracts with iol implants Cardiac catheterizationTeresa Lynch Work Phone: cardiac stentsPatricgloria ROWE Cataract extraction and insertion of intraocular lens Yeyo SOLEDAD Cataract surgeryTeresa Lynch Work Phone: ColonoscopyPatrick ROWE Decompression of median nervePhillipgorge Mari Lynch Work Phone: History of amputation of footStatus post partial amputation of right foot ([facility])uGero Tam DO Work Phone: History of amputation of footStatus post partial amputation of right foot ([facility])Guero Tam DO Work Phone: History of amputation of footStatus post partial amputation of right foot ([facility])Guero Chacon FlagTapkayleeng DO Work Phone: History of amputation of footStatus post partial amputation of right foot ([facility])Guero Chacon FlagTapkayleeng DO Work Phone: History of amputation of footStatus post partial amputation of right foot ([facility])Guero Tam DO Work Phone: History of amputation of footStatus post partial amputation of right foot ([facility])Guero Harrisng DO Work Phone: History of amputation of footStatus post partial amputation of right foot ([facility])Guero Chacon FlagTapkayleeng DO Work Phone: History of percutaneous transluminal coronary angioplastyHistory of PTCAshlyn Lynch Work Phone: History of percutaneous transluminal coronary angioplastyHistory of PTCEstefani Inman MD Work Phone: Procedure on backBrygorge Lynch Work Phone: Comment on above:nerve ablation;Procedure on back Yeyo ROWE Scrotum and testicle operationBrygorge Lynch Work Phone: Plan of Treatment DateCare ActivityDetailAuthorStart: 87-48-9806IPwM/Tdap/Td Vaccines (2 - Td or Tdap)DTaP/Tdap/Td Vaccines (2 - Td or Tdap)[facility] Start: 70-85-2791Haqyk BMI ScreeningAdult BMI ScreeningMercy Health St. [facility] Start: 39-35-6008MfyktcqlzttxrjutTxyodqzxsulhyyKlbxjyzovg [facility] Start: 88-24-8604Tozwrys CounselingTobacco CounselingProGalion Community Hospitalca [facility] Start: 04-03-2025 End: 60-87-8304Wydmvpn encounter auvkvmrll83/30/2025 11:00 AM EDT [facility] [place] [address] Mike Montes MD [address] , [facility] [address] [place] [address] Addison Hernández [facility] Centertart: 96-10-7143Ojcvb BMI ScreeningAdult BMI ScreeningProGalion Community Hospitalca [facility] SystemStart: 03-12-2025 End: 13-48-9836Zvinyci encounter rthpvawgx25/08/2025 3:50 PM EDT Office Visit [address] [place] [address] Bernard De La Cruz MD [address] [facility] [address] [place] [address] [facility] CenterStart: 43-41-3928Mxuyf BMI ScreeningAdult BMI ScreeningProGalion Community Hospitalca Health SystemStart: 76-66-0966Bjnrftq ScreeningTobacco ScreeningProGalion Community Hospitalca Health SystemStart: 83-93-3552Uzsbj BMI ScreeningAdult BMI ScreeningProMedica [facility] SystemStart: 02-27-2025 End: 17-39-4201KUD Abdominal Aorta and Bilateral Runoff Vessels W contrast IVCT angiogram abdominal aorta with runoff Imaging Routine 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) Expected: 02/27/2025, Expires: 02/27/2026[facility] Work Phone: Comment on above:Expected: 02/27/2025, Expires: 02/27/2026Start: 10-63-3872PJPJF-19 Vaccine ( season)COVID-19 Vaccine ( season)[facility]Start: 93-67-0515Vrxyregwk vaccinationProMedica Health SystemStart: 29-24-7027Vmgxo BMI ScreeningAdult BMI ScreeningProMedica Health SystemStart: 61-22-1416Kvwdugq ScreeningTobacco ScreeningProMedica Health SystemStart: 68-91-4277Bljby BMI ScreeningAdult BMI ScreeningProMedica Health SystemStart: 32-46-0962Fthsllo ScreeningTobacco ScreeningProMedica Health SystemStart: 06-85-5204Bjnkd BMI ScreeningAdult BMI ScreeningProMedica Health SystemStart: 36-27-8341Wgiglut ScreeningTobacco ScreeningProMedica Health SystemStart: 55-22-4841Uxkkb BMI ScreeningAdult BMI ScreeningProMedica Health SystemStart: 04-14-4893Zrnbz BMI ScreeningAdult BMI ScreeningProMedica Health SystemStart: 08-57-0701Nfxhfvc ScreeningTobacco ScreeningProMedica Health SystemStart: 93-11-7715Nwtbxwi ScreeningTobacco ScreeningProMedica Health SystemStart: 78-92-2755Edbtioddzx ScreeningDepression ScreeningProMedica Health SystemStart: 09-59-8785Vrpjabe referralGlenbeigh Hospital Work Phone: Start: 37-80-4854Omdzr BMI ScreeningAdult BMI ScreeningProMedica Health SystemStart: 10-21-2024 End: 59-30-6557Uxyvssa encounter ndkimmamg50/19/2025 8:00 AM EDT Office Visit [facility] [address] [facility] [address] [place] [address] Dolores Pickard, METAL DIE FINISHER-SUPERVISOR PLATING AND POINT ASSEMBLY [address] [facility] [address] [place] [address] [facility] CenterStart: 55-15-7767Makha BMI ScreeningAdult BMI ScreeningFairfield Medical Center Health SystemStart: 43-65-2608Nzmmrnm ScreeningTobacco ScreeningProDayton Children'S Hospital SystemStart: 74-91-3576TztzmejmhSelect Medical [facility] Clinic Rehabilitation Hospital, Beachwoodtart: 69-62-4442WdyailcxhSelect Medical [facility] Clinic Rehabilitation Hospital, Beachwoodtart: 10-11-2024 End: 13-12-9029LvhzzyzsgSelect Medical [facility] Hospital, Beachwoodtart: 10-10-2024 End: 60-87-8030KyqtydtmlSelect Medical [facility] Hospital, Beachwoodtart: 57-18-6874Eyckpjna admissionSelect Medical [facility] Clinic Rehabilitation Hospital, Beachwoodtart: 94-69-8094Lebkgvls to cardiologistSelect Medical [facility] Clinic Rehabilitation Hospital, Beachwoodtart: 24-04-2167Zptydid referral [facility] Work Phone: Start: 66-62-0575HvwshgiokTuscarawas Hospital Start: 51-87-3894IluvqidsoSelect Medical [facility], Beachwoodtart: 08-11-2024 End: 39-29-7999NsjtkhbpsSelect Medical [facility] Hospital, Beachwoodtart: 29-21-1258Zgfbgphs therapy procedureSelect Medical [facility] Clinic Rehabilitation Hospital, Beachwoodtart: 54-35-5533Xtxpfctk to occupational therapistSelect Medical [facility] Rehabilitation Hospital, Beachwoodtart: 38-55-7877Nrpqbdvz admissionSelect Medical [facility] Clinic Rehabilitation Hospital, Beachwoodtart: 76-15-9338Xizwwshh to nephrologistSelect Medical [facility] Rehabilitation Hospital, Beachwoodtart: 55-87-5518ML angiography of headSelect Medical [facility] Clinic Rehabilitation Hospital, Beachwoodtart: 33-87-8304DQ angiography of neck vesselsSelect Medical [facility] Clinic Rehabilitation Hospital, Beachwoodtart: 40-59-0202ZH Head WO contrast [facility], Beachwoodtart: 13-20-0357NP of head without contrastCT head stroke alert wo [facility] Hospitaltart: 11-26-7633Wlejp chest X-rayXR chest 1V portableSelect Medical [facility] Clinic Rehabilitation Hospital, Beachwoodtart: 73-65-3675VS Chest Single viewSelect Medical [facility] Clinic Rehabilitation Hospital, Beachwoodtart: 08-11-2024 End: 63-21-3972ZlmbnrdbwSelect Medical [facility] Clinic Rehabilitation Hospital, Beachwoodtart: 68-22-5455VybzosyjiSelect Medical [facility] Clinic Rehabilitation Hospital, Beachwoodtart: 40-10-5452JaunhkmnlSelect Medical [facility] Rehabilitation Hospital, Beachwoodtart: 03-11-2024 End: 57-96-9883Adfbrce encounter lookxtdvl85/07/2024 8:40 AM EDT Office Visit [place] [address] [facility] [address] [place] [address] Bernard De La Cruz MD [address] [facility] [address] [place] [address] [facility] CenterStart: 61-86-0829Rhsoyzkx to outreach counselor [facility], Beachwoodtart: 97-29-7658Hiqruuqwbhgte metabolic 2000 panel - Serum or PlasmaSelect Medical [facility] Clinic Rehabilitation Hospital, Beachwoodtart: 03-09-2024 End: 46-29-7665TsiijidnbSelect Medical [facility] Clinic Rehabilitation Hospital, Beachwoodtart: 99-51-6525Ibclwwkz to psychiatristSelect Medical [facility] Rehabilitation Hospital, Beachwoodtart: 39-02-7488Gforwifu to neurologHolzer Hospitaltart: 03-08-2024 End: 87-82-8823TzhiyrybhSelect Medical [facility] Clinic Rehabilitation Hospital, Beachwoodtart: 96-55-7413Aldkirdh admissionSelect Medical [facility] Clinic Rehabilitation Hospital, Beachwoodtart: 01-30-7350Ckpkd chest X-ray [facility], Beachwoodtart: 32-76-6954Xrydreyrqfht consultation with patientSelect Medical [facility] Clinic Rehabilitation Hospital, Beachwoodtart: 63-87-7254Udcla culture for bacteria, including anaerobic screenSelect Medical [facility] Clinic Rehabilitation Hospital, Beachwoodtart: 18-99-9326YvyfslwqmSelect Medical [facility] Clinic Rehabilitation Hospital, Beachwoodtart: 66-41-9351Wcnuqqax to gastroenterologistSelect Medical [facility] Clinic Rehabilitation Hospital, Beachwoodtart: 60-94-3195Pvtavokj to gastroenterologistSelect Medical [facility] Clinic Rehabilitation Hospital, Beachwoodtart: 97-64-3212Ucoyboxh to neurologistSelect Medical [facility] Hospital, Beachwoodtart: 45-89-2939HridgijsgSelect Medical [facility] Rehabilitation Hospital, Beachwoodtart: 82-07-5963Mwbbtevn admissionSelect Medical [facility] Clinic Rehabilitation Hospital, Beachwoodtart: 02-29-2024 End: 25-24-8881Vqbhmzf encounter qkazdnbyi84/26/2024 9:30 AM EDT [facility] [address] [place] [address] Mike Montes MD [address], [address] [address] [facility] SurgeryStart: 07-38-0042RFOIK-19 Vaccine ( season)COVID-19 Vaccine ()[facility] Centertart: 56-15-5024WIHBV-19 Vaccine ( season)COVID-19 Vaccine ()[facility] Start: 24-15-3903Palguqztm vaccinationLutheran HospitalStart: 12-21-2023 End: 11-97-6076Rbtxyxi encounter trvqtfxcu13/18/2024 8:40 AM EDT Office Visit [facility] [address] [place] [phone] Mike Montes MD [address], [address] [address] [facility] CareStart: 11-30-2023 End: 58-31-5308Wncpsgq encounter /27/2024 8:50 AM EDT Office Visit [facility] [address] [place] [address] Mike Montes MD [address], [address] [address] [facility] CareStart: 11-23-2023 End: 33-94-4773Ovizbpc encounter procedureWhite Hospital - VascularStart: 11-23-2023 End: 04-84-1267Xfjhpgo encounter nbjtybrfk86/20/2024 9:40 AM EDT Office Visit [facility] [address] [place] [address] Mike Montes MD [address], [address] [address] [facility] and Wound CareStart: 92-65-9043UQR, Provider: Raulito Inman, Status: Pen, Time: 2:40 PMFUV, Provider: Raulito Inman, Status: Pen, Time: 2:40 PM- [facility] [address] DO Work Phone: Start: 11-07-2023 End: 66-56-4860Iitzxlxzy to same day surgery syqhmr6011/07/2023 3:00 PM EDT - 11/07/2023 4:00 PM EDT Surgery [facility] [address] [place] [phone] Mike Montes MD [address] RAMIREZ, [address] [address] Vascular Invasive Right lower extremity angiogramwith interventionProOhiohealth Arthur G.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 SystemComment on above:Expected: 10/18/2023, Expires: 10/17/2024Start: 10-18-2023 End: 17-97-1060PZ.doppler Extremity arteries - bilateral for physiologic artery studyProMedica Work Phone: Comment on above:Expected: 10/18/2023, Expires: 10/17/2024Start: 14-36-6170Wize Fast CultureAcid Fast [facility]tart: 17-81-7342Osten Culture 1Blood Culture 1FSelect Medical Specialty Hospital - Cincinnati Northtart: 65-88-6882Vnhyn Culture 2Blood Culture 2FSelect Medical Specialty Hospital - [facility] Northtart: 70-47-0806Byygh CultureWound [facility] Hospitaltart: 55-31-8710Ircpthn CultureAbscess [facility] Hospitalt[facility]: 46-42-7847Myun Fast CultureAcid Fast [facility] Hospitaltart: 91-26-2575Wqhdl CultureWound [facility] Hospitaltart: 51-21-2541Frtvsy scan of lower limb veinsUS venous duplex LE BIFSelect Medical Specialty Hospital - [facility] Northtart: 47-74-7439SP Lower extremity vein - bilateralSelect Medical [facility], Beachwoodtart: 07-12-2023 Duplex scan veins of upper limbUS venous duplex UE LTSelect Medical [facility], Beachwoodtart: 45-13-4486RW Upper extremity vein - leftSelect Medical [facility], Beachwoodtart: 45-24-0942RPZ, Provider: Dolores Velazquez, Status: Pen, Time: 10:00 AMFUV, Provider: Dolores Velazquez, Status: Pen, Time: 10:00 [facility] 600 DO Work Phone: Start: 57-89-6381AXDED-19 Vaccine ( season) COVID-19 Vaccine ( season)[facility] HospitalStart: 44-76-9236OLZMXG NUC, Provider: CHALINO HHVI NUCLEAR ,[id number], Status: Pen, Time: 8:30 AMSTRESS NUC, Provider: CHALINO HHVI NUCLEAR ,[id number], Status: Pen, Time: 8:30 AMLakeWood Health Centerwalk 600 DO Work Phone: Start: 73-64-8983HQG, Provider: Raulito Inman, Status: Pen, Time: 9:20 AMFUV, Provider: Raulito Inman, Status: Pen, Time: 9:20 [facility] 250 DO Work Phone: Start: 73-90-2189LUN, Provider: Raulito Inman, Status: Pen, Time: 9:30 AMFUV, Provider: Raulito Inman, Status: Pen, Time: 9:30 AMPerham Health Hospital 250 DO Work Phone: Start: 44-09-4208Eiprhznmwbpe vaccinationPneumococcal Vaccine (2 of 2 - PCV)[facility]: 03-05-2019 Pneumococcal Vaccine: Pediatrics (0 to 5 Years) and At-Risk Patients (6 to 64 Years) (2 of 2 - PCV)Pneumococcal Vaccine: Pediatrics (0 to 5 Years) and At-Risk Patients (6 to 64 Years) (2 of 2 - PCV)[facility]: 46-90-1714Fouxaphnjiubfa of varicella zoster vaccineZoster (Shingles) Vaccine (1 of 2)[facility] SystemStart: 93-42-6675Smnepbhf specific antigen measurementPSA Prostate Cancer ScreeningUnJoint Township District Memorial Hospital: 69-65-5512Jnhurm Vaccines (1 of 2)Zoster Vaccines (1 of 2)[facility]: 25-72-8298ALaS/Tdap/Td Vaccines (1 - Tdap)DTaP/Tdap/Td Vaccines (1 - Tdap)[facility]: 74-66-5719WHsO,Tdap and Td Vaccines (1 - Tdap)DTaP,Tdap and Td Vaccines (1 - Tdap)[facility] SystemStart: 17-53-2083Ruhswaiqu B Vaccines (1 of 3 - 19+ 3-dose series) Hepatitis B Vaccines (1 of 3 - 19+ 3-dose series)[facility]: 68-97-4454Yqikp screening for proteinDiabetes: Urine Protein ScreeningSt. Rita's Hospital: 03-08-8429Ruwnj BMI Follow Up PlanAdult BMI Follow Up PlanProMedica Health SystemStart: 84-67-1962Occjt BMI ScreeningAdult BMI ScreeningNovant Health Presbyterian Medical Centertart: 96-27-6909Dboqonpf foot examinationDiabetic Foot ExamProSCCI Hospital Limatart: 1983 Hepatitis C screeningHepatitis C ScreeningLutheran Hospital Start: 09-46-2004Vitybbzrgr ScreeningDepression ScreeningFayette County Memorial Hospital Start: 84-38-2469Erirgwv ScreeningTobacco ScreeningNovant Health Presbyterian Medical Centertart: 91-80-6685Rrejsbup foot examinationDiabetes: Foot ExamUnJoint Township District Memorial Hospital: 86-96-2357Onyzjmxl screeningDiabetes: Retinopathy Screening [facility]: 05-64-6702RPB Vaccines (1 of 1 - Standard series)MMR Vaccines (1 of 1 - Standard series)[facility]: 14-69-5325Huscxkbvnq measurementCreatinine LevelUnJoint Township District Memorial Hospital: 06-53-6427XwrtcxoelxagmkmcGyqbgjmumqmltgTbugwvevqs [facility] ClevelandStart: 91-14-4272Vjvfnlpu screeningDiabetic Ophthalmology ExamProSCCI Hospital Limatart: 00-85-0563Cvmaxnmljl A1c measurementDiabetes: Hemoglobin Y2STcigsriubzJoint Township District Memorial Hospital: 41-16-3929OBJ screeningHIV ScreeningUnJoint [facility] District [facility] Hospital: 73-87-5312Sbspg panelLipid PanelUnJoint [facility] Hospital: 10-92-6727Wrgccywfn measurement Potassium LevelUnJoint Township District Memorial Hospital: 50-87-1802Mxafxommz for malignant neoplasm of colonUnJoint Township District [facility] Hospital: 1965 Statin Use: CardiovascularStatin Use: CardiovascularFayette County Memorial Hospital Start: 82-97-8534Chukvc Use: DiabeticStatin Use: DiabeticFayette County Memorial Hospital Start: 07-69-8652Ulmlyzv CounselingTobacco CounselingFayette County Memorial Hospital Start: 13-93-1016Jjwtf screening for proteinDiabetes: Urine Protein Screening 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 Stabler Memorial Hospital Health SystemComment on above:1 Occurrences starting 02/27/2025 until 02/27/2026Microalbumin [Mass/volume] in UrineTuscarawas HospitalPatient Education [facility] Work Phone: Patient referralThe [facility]tr Work Phone: Renal function 1999 panel - Serum or PlasmaTuscarawas HospitalRenal function 1999 panel - Serum or [facility] End: 11-61-1357QM [facility] Service Area Work Phone: Comment on above:Once for 1 Occurrences starting 01/17/2024 until 01/17/2024[facility] Immunizations Immunization DateImmunizationNotesCare PdeyhntwOywysooz79-74-2769Scvsrp-BmcEMsbx COVID-19 Vacc 30 MCG/0.3ML Intramuscular SuspensionBryan P Kuns Work Phone: [facility]05-21-2021Pfizer-BioNTech COVID-19 Vacc 30 MCG/0.3ML Intramuscular SuspensionBryan P Kuns Work Phone: [facility]08-12-2019influenza, seasonal, injectableBryan Kuns Other [facility]08-12-2019influenza virus vaccine, unspecified formulationPatrick ROWE [facility]10-29-2018influenza virus vaccine, unspecified formulationPatrick ROWE [facility]10-29-2018influenza, injectable, quadrivalent, preservative freeDO Teresa Rory Work Phone: [facility]10-01-2018influenza virus vaccine, unspecified formulationBryan P Kuns Work Phone: [phone]-FdhyuPerham Health Hospital 250 DO Work Phone: [phone]xmc polysaccharide vaccine, 23 valentBryan P Kuns Work Phone: [phone]-FyvzcPerham Health Hospital 250 DO Work Phone: [phone] virus vaccine, unspecified formulationPatrick ROWE [facility]10-03-2016influenza, injectable, quadrivalent, preservative freeBryan P Kuns Work Phone: [facility]09-19-2016 pneumococcal polysaccharide vaccine, 23 valentBryan P Kuns Work Phone: [facility]'S HospitalNEGATED: Highlighted row has not occurred!37-83-1443nybwsuchf virus vaccine, unspecified formulationJECHUCKIEDAMION VANG [facility] Payers DatePayer CategoryPayerPolicy [id number] (Managed Care)[facility] [id number]-guh [id number] 2024Medicaid [id number] Health Insurance [id number] Health Insurance [id number] Health Insurance [id number] [id number] 18-61-1704Todpizm193354[id number] 2..1.639334.3.579.2.593 [id number] 2..1.534580.3.579.2.472829-12-3890Szykmyj [id number] 2..1.864643.3.579.2.[id number] 2..1.040484.3.57[id number] 2..1.579648.3.57[id number] 2.0.1.997959.3.579.2.850902-43-7796Depyuky70348502 2.0.1.910314.3.579.2.108518-42-5886Ziwxinb40026213 2.16.840.1.121917.3.579.2.409842-91-6051Sihrifq54491182 2.16.840.1.381320.3.579.2.237718-22-3715Rmhyhfi88324928 2.16.840.1.886147.3.579.2.397966-74-0404Thxyefq01434206 2.16.840.1.343039.3.579.2.003817-62-6552Lilaviv96819041 2.16.840.1.378195.3.579.2.372958-27-5780Ikrqvks69749370 2.16.840.1.869911.3.579.2.451684-81-9629Cskfpgn54306193 2.840.1.591322.3.579.2.21660-23-6980Nbpotdh66517841 2.840.1.207828.3.579.2.96242-11-3234Eohbdgo04492505 2.840.1.254659.3.579.2.43537-11-7228Taitstv08526285 2.840.1.942369.3.579.2.37018-18-7245Xlxuttf71079165 2.840.1.063431.3.579.2.14921-40-8612Swhcpqj32991367 2.840.1.331801.3.579.2.60514-33-8023Wiuxtnt22627518 2.840.1.749877.3.579.2.78592-08-6268Tuwxzov69097193 2.16.840.1.728568.3.579.2.20808-43-4814Bcgfcwo81816151 2.16840.1.156242.3.579.2.22902-87-5699Iudruxi09470290 2.16.840.1.560264.3.579.2.42058-36-0896Ocolozf73230689 2.16.840.1.077933.3.579.2.26144-24-2479Xbqfner33983887 2.16.840.1.711625.3.579.2.34002-51-6079Jdyjscr92530884 2.16.840.1.943694.3.579.2.34453-23-3169Lqzrjkw18874771 2..840.1.777626.3.579.2.60878-59-9713Zfykqex93333215 2.840.1.031224.3.579.2.13095-88-3868Izmrdyl64779243 2.840.1.088627.3.579.2.43878-76-2181Javhzpk65282723 2.840.1.799865.3.579.2.18968-03-1309Ievivyi56791075 2.16.840.1.573846.3.579.2.58595-39-9345Anlibni90684373 2.16840.1.075935.3.579.2.00183-44-1406Hyssxyn12762825 2.16840.1.977603.3.579.2.50098-80-1403Ekowkvv54689456 2.16840.1.869067.3.579.2.12730-35-0460Wgxhjav73506524 2.16.840.1.016257.3.579.2.70193-19-1594Xoovhxx23929782 2.16840.1.678568.3.579.2.50428-20-1337Klrysqz40144823 2.16.840.1.938920.3.579.2.85573-87-3581Lomtbjb13251780 2.16.840.1.247697.3.579.2.22930-39-9003Ugvznxc51014746 2.16.840.1.953006.3.579.2.41361-50-7393Dnfwqbw96537796 2.16.840.1.060596.3.579.2.80028-84-9083Pzbnugo64157107 2.16.840.1.812584.3.579.2.08459-54-1341Dydjtuo18324442 2.16.840.1.663093.3.579.2.40080-23-7388Ijarlgt73578582 2.16.840.1.224214.3.579.2.87323-59-4267Rixuogp94386905 2.16.840.1.598107.3.579.2.265479-60-6942Jkzgask13387383 2.16.840.1.205518.3.579.2.030487-29-7825Vlugxbf13552985 2.16.840.1.354603.3.579.2.263903-87-5692Pgswybs54892434 2.16.840.1.436129.3.579.2.907878-78-7616Pyjbqpb13201650 2.16.840.1.824204.3.579.2.501775-43-2962Adozaws87809230 2.16.840.1.310646.3.579.2.076237-70-1711Vyujshk275666687 2.16.840.1.738532.3.579.2.419184-73-3530Vyiombs72205935 2.16.840.1.275987.3.579.2.373421-46-5827Gxdjlns51888927 2.840.1.483425.3.579.2.885519-94-0686Dutipgw53616647 2.840.1.627669.3.579.2.277022-51-9367Mddddbf67114637 2.840.1.731909.3.579.2.015610-25-6977Ajuoabn19628598 2.840.1.756844.3.579.2.27961-31-8180Tktzrjy72680688 2..1.403499.3.579.2.70868-59-2963Ektqshk02917543 2.0.1.701392.3.579.2.58790-74-2299Girxznl81125686 2.0.1.084016.3.579.2.91601-40-0756Nidlebu69494684349 2.840.1.845137.19 Jzodpir74534091 2.840.1.110458.3.579.2.843Hqxxldb05404932 2.840.1.094202.3.579.2.991Touhinr66125968 2.840.1.517974.3.579.2.531 Ejyepvk40612255 2.840.1.923128.3.579.2.108Lojjdok56518643 2.840.1.806588.3.579.2.919Icpnnuu67018768 2.840.1.785137.3.579.2.531 Qqvwskw52278239 2.840.1.956137.3.579.2.247Uucfwwy64815719 2.840.1.067670.3.579.2.531 Social History DateTypeDetailFacilityStart: 08-08-2023 End: 41-93-5894Oslchtpo useCaffeine useNohedrick medical center CopyRightNow Other Comment on above:2 cups coffee, 4-6 cups tea daily, occaional soda;qauit 07/2020;Start: 08-08-2023 End: 31-41-8275Edc [facility] 07-14-2020 End: 09-21-0613Sjlcvcx smoking status NHISSmoker (finding)[facility]: 81-93-0108Brd Assigned At [facility]: 11-23-2022 End: 40-40-8721Umrdwbe smoking statusHeavy tobacco smoker (finding)[facility]: 90-89-3025Lairbrm smoking statusNeverExecutive Urology of St. Rita'S HospitalyStart: 26-20-1942Kghdddd smoking status NHISEx-smokerLutheran Hospital Start: 10-05-1981 End: 61-65-6969Wnovxki of tobacco useCigarette SmokerFairfield Medical Center Health System Start: 10-24-2023 End: 19-49-2684Nppnzzd use and exposureSmokeless tobacco non-userUnOhioHealth Berger Hospital Work Phone: Start: 10-24-2023 End: 55-41-1828Zfuygpjia beverage intakeLifetime non-drinker (finding)[facility] Work Phone: Start: 92-37-7471Mke assigned at birthNot on file Glancetart: 10-14-2023 End: 65-77-6389Yjzlyxkt to SARS-CoV-2 (event)Not sureLutheran HospitalStart: 46-48-1127Jdtwpxi smoking status NHISUnknown if ever smoked [facility]: 01-06-2015 End: 01-36-8958IetSkbr (finding)[facility]: 10-05-1981 End: 01-93-9194Lgrtijk smoking status NHISSmokes tobacco dailyProGalion Community HospitalNumonyx Health SystemStart: 11-10-2023 End: 45-01-3143Gnlkawlmg beverage intakeEx-drinker (finding)ProMelmore community hospitalPartschannel SystemHas the electric, gas, oil, or water company threatened to shut off services in your home in past 12MoNoProMedica Health SystemHow often to you have a drink containing alcohol?2-4 times a monthProMedica Health SystemHow many standard drinks containing alcohol do you have on a typical day?1 or 2ProMedica Health SystemHow often do you have 6 or more drinks on 1 occasion?NeverProL.V. Stabler [facility] SystemStart: 48-33-6576JJNJ Follow upSDOH Follow upKettering Memorial Hospital Work Phone: Sexual OrientationExecutive [facility]rology of [facility] Medical Equipment Procedure CodeEquipment CodeEquipment Original TextEquipment IdentifierDates Aortogram, abdominal, with bilateral lower extremity runoffIR STENT SMART 10 X 80 120 CMFDAStart: 29-93-6636Bfskbwmal, abdominal, with bilateral lower extremity runoffIR STENT SMART 10 X 80 120 CMFDAStart: 59-78-1539Qqtdbjvqk, abdominal, with bilateral lower extremity runoffIR STENT SMART 10 X 80 120 CMFDA Start: 99-29-6099Xvzwokvxa, abdominal, with bilateral lower extremity runoffIR STENT SMART 10 X 80 120 CMFDAStart: 26-14-0759Qizhvjuou, abdominal, with bilateral lower extremity runoffIR STENT SMART 10 X 80 120 CMFDAStart: 87-55-4854Zurytmvih, abdominal, with bilateral lower extremity runoffIR STENT SMART 10 X 80 120 CMFDAStart: 44-46-3606Pnorfopwk, abdominal, with bilateral lower extremity runoffIR STENT SMART 10 X 80 120 CMFDAStart: 09-27-2018 Aortogram, abdominal, with bilateral lower extremity runoffIR STENT SMART 10 X 80 120 CMFDAStart: 69-30-6827Nizgsirvt, abdominal, with bilateral lower extremity runoffFDAStart: 99-33-6526Grzgytfov, abdominal, with bilateral lower extremity runoffFDAStart: 95-68-0864Zcxtpsjpf, abdominal, with bilateral lower extremity runoffFDAStart: 54-39-8378Tqqffktko, abdominal, with bilateral lower extremity runoffIR STENT SMART 10 X 80 120 CMFDAStart: 42-34-1166Pbcbidjoc, abdominal, with bilateral lower extremity runoffIR STENT SMART 10 X 80 120 CMFDA Start: 95-38-0840Unjyrizjq, abdominal, with bilateral lower extremity runoffIR STENT SMART 10 X 80 120 CMFDAStart: 35-16-2225Qilgukzaz, abdominal, with bilateral lower extremity runoffIR STENT SMART 10 X 80 120 CMFDAStart: 30-74-1546Xysipnrwv, abdominal, with bilateral lower extremity runoffIR STENT SMART 10 X 80 120 CMFDAStart: 07-27-3483Zonroznpl, abdominal, with bilateral lower extremity runoffIR STENT SMART 10 X 80 120 CMFDAStart: 09-27-2018 Aortogram, abdominal, with bilateral lower extremity runoffIR STENT SMART 10 X 80 120 CMFDAStart: 40-80-9157Tgxfufacx, abdominal, with bilateral lower extremity runoffIR STENT SMART 10 X 80 120 CMFDAStart: 79-88-8126Vqyqacyrj, abdominal, with bilateral lower extremity runoffIR STENT SMART 10 X 80 120 CMFDA Start: 53-76-9790Lkqswtjkh, abdominal, with bilateral lower extremity runoffIR STENT SMART 10 X 80 120 CMFDAStart: 21-92-4369Uetjzvvwd, abdominal, with bilateral lower extremity runoffFDAStart: 50-91-9003Kphohczrv, abdominal, with bilateral lower extremity runoffFDAStart: 40-37-4935Wszik: 12-16-2013 ()[id number] FDAStart: 51-58-2421Hmwjbls Syringe,Safety Needle 1 mL 30 gauge x 1/2 syringeStart: 98-54-0666Ojf Needle, Diabetic (Comfort Ez Pen [place]) 32 gauge x 5/32 needleStart: 04-15-2024 Insulin Syringe,Safety Needle 1 mL 30 gauge x 1/2 syringeStart: 39-42-3618Vai Needle, Diabetic (Comfort Ez Pen [place]) 32 gauge x 5/32 needleStart: 15-55-4129SZS Angiogram Unknown 01/08/24 Non Biological Left Femoral Artery/Vein FDAStart: 32-68-0464CQH Angiogram Unknown 01/08/24 Non Biological Left Femoral Artery/VeinFDAStart: 08-92-3926RZT Angiogram Unknown 01/08/24 Non Biological Left Femoral Artery/VeinFDAStart: 43-70-8082Xwjfu Vsc 50cm 6mm [place] Thnwl Hep Propaten Ptfe Rem Rng - [id number] - [id number]: 11-08-2023 Comment on above:Description: RIGHT FEMORAL ARTERYStent Vsc Epic 10mm 100mm 120cm 6fr Rdpq Otw Slf Xpd - [id number] ()[id number], 654145_[facility] FDAStart: 87-11-9128EDG Angiogram Unknown 01/08/24 Non Biological Left Femoral Artery/VeinFDAStart: 83-82-8103Rezsyav Syringe,Safety Needle 1 mL 30 gauge x 1/2 syringeStart: 63-23-3983Ydk Needle, Diabetic (Comfort Ez Pen [place]) 32 gauge x 5/32 needle Start: 49-71-0134Jqmevqi Syringe,Safety Needle 1 mL 30 gauge x 1/2 syringe Start: 61-01-5942Qoa Needle, Diabetic (Comfort Ez Pen [place]) 32 gauge x 5/32 needleStart: 45-78-2698Sjdlqrv Syringe,Safety Needle 1 mL 30 gauge x 1/2 syringeStart: 38-01-2998Qzv Needle, Diabetic (Comfort Ez Pen [place]) 32 gauge x 5/32 needleStart: 73-70-6186Evkqvtz Syringe,Safety Needle 1 mL 30 gauge x 1/2 syringeStart: 65-70-9543Mde Needle, Diabetic (Comfort Ez Pen [place]) 32 gauge x 5/32 needleStart: 24-18-9801Ssechtb Syringe,Safety Needle 1 mL 30 gauge x 1/2 syringeStart: 56-37-5716Dpr Needle, Diabetic (Comfort Ez Pen [place]) 32 gauge x 5/32 needleStart: 93-82-4072Olnjzpo Syringe,Safety Needle 1 mL 30 gauge x 1/2 syringeStart: 84-60-8459Mhh Needle, Diabetic (Comfort Ez Pen [place]) 32 gauge x 5/32 needleStart: 22-68-1207Asnwskl Syringe,Safety Needle 1 mL 30 gauge x 1/2 syringeStart: 94-94-7966Xqy Needle, Diabetic (Comfort Ez Pen [place]) 32 gauge x 5/32 needleStart: 27-26-3177WYF Angiogram Unknown 01/08/24 Non Biological Left Femoral Artery/VeinFDAStart: 01-08-2024 Goals DatePatient GoalDesired Activity/StatePersonal health goalComment on above: Evaluation of progress towards goal: Patient is planning to transition back to SNF at discharge. Functional Status SekwAdodqfrzdhQykdjnGhajopzr59-21-0933Guibwsvrtb statusPatient at [facility] Work Phone: [phone]hqw statusPatient at Baseline [facility] Work Phone: [phone]wbk statusPatient at Baseline [facility] Work Phone: [phone]) [phone]yaaqugi StatusN/AExec[facility]12-23-2024Functional StatusN/A[facility]10-09-2024Functional status Patient at [facility] Work Phone: [phone]) [phone]nxqpsql statusPatient at Baseline [facility] Work Phone: [phone]) [phone]imuslou StatusNoAs[facility]ab[facility]05-20-[address]24Function[address] [facility]12-29-2023 Functional StatusN/AExec[facility] 84-38-8437Psqwtrwksx StatusN/AFOur Lady of Mercy [facility]08-28-2023Functional StatusN/A[facility]06-21-2023 Functional StatusN/AExec[facility] Mental Status PgucJwsgtgpuehVkgbrdEdxzqbfa30-95-2579Mnqbcjvzz functionPatient at Baseline [facility] Work Phone: 1([phone]anlzpa functionCognitive Status Patient at BaselineK[facility] Work Phone: [phone]bni functionPatient at Baseline [facility] Work Phone: [phone]t functionPatient at Baseline [facility] Work Phone: [phone]slf functionPatient at Baseline [facility] Work Phone: Clinical Notes 06-23-2021 to 03-13-2025 Note Date & KjbdHypgLkdqtbao17-55-7085 Miscellaneous Notes* Telephone Encounter - Jess Aguilar CMA - 03/13/2025 1:10 PM EDT Lm for patient to call and get his testing done so that we do not have to cancel his appt on the 30. documented in this encounterFayette [facility]10-09-2025 Telephone encounter Note* Telephone Encounter - Jess Aguilar CMA - 03/13/2025 1:10 PM EDT Lm for patient to call and get his testing done so that we do not have to cancel his appt on the 30th. 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 [facility]09-25-2025 History of Present illness Narrative* Mike Montes MD - 02/27/2025 10:50 AM EDT Images from the original note [...] morning and 2puffs before bedtime. amitriptyline (ELAVIL) 25 mg tablet [...] Critical limb ischemia of right lower extremity ([facility]) Diabetes mellitus type 2, controlled [place] (gastroesophageal reflux disease) Hyperlipidemia Hypertension Past Surgical History: Past Surgical History: Procedure Laterality Date AMPUTATION FOOT / TOE Right 09/29/2023 APPENDECTOMY BYPASS ARTERY FEMORAL POPLITEAL Right 11/08/2023 Performed by Mike Montes MD at [facility] SPECIAL PROC CARDIAC CATHETERIZATION x4 heart stents COLONOSCOPY PROSTATE SURGERY SPINE SURGERY Vascular Invasive Right lower extremity angiogram with intervention/stent Right 11/07/2023 Performed by Mike Montes MD at [facility] CARDIAC CATH LABS Social and [...] CUFF SIZE: M (9-13 inches)) Pulse 75 Ht182.9 cm (6') Wt 93.9 kg (207 lb) [...] of left lower extremity with gangrene (CMS-HCC) - Primary Current Assessment & Plan CTA aorta with runoff PVR Continue aspirin 81 mg atorvastatin 80 mg and Plavix 75 mg. Relevant Orders Vas art doppler lwr bilat mult lev/PVR CT angiogram abdominal aorta with runoff Creatinine includes GFR, serum Hx of right BKA (CMS-HCC) Cigarette smoker Current Assessment & Plan Counseled him on smoking cessation for at least 4 minutes Myra was seen today for testing bellvue 2 months ago rt leg. 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 While intending to generate a timely document that accurately reflects the content of the visit, no guarantee can be provided that every grammatical or spelling mistake has been or will be identified or corrected. Thank you for your understanding. documented in this encounterSpringfield HospitalSolidcore Systems09-25-2025 Instructions* Patient Instructions* Mike Montes MD - 02/27/2025 10:50 AM EDT Are You Ready To Kick The Habit? Free Tobacco Cessation Resources [facility] Services [facility] provide all employees with free tobacco cessation services that include: Counseling to understand nicotine addiction Education about medications that can help you successfully quit Assistance with developing a plan to quit Call to set up an individual appointment or find out when group classes will be held: [facility]: [phone] [facility]: [phone] [facility]: [phone] [facility]: [phone] Quit Smoking Action Plan and Resources [facility] offers an eight-week, online smoking cessation plan to all [facility] employees, regardless of whether [place] is your medical insurance provider. Go to www.Oree.org/employeewellness and click the Health Risk Assessment and Resources link to get started. In the [place] menu, click Action Plans instead of Health Risk Assessment to access the Quit Smoking Action Plan. Additional smoking cessation resources are also available to all [facility] employees on the Mglee0Ctifwk web page at www.Vusion/quitsmoking. [place] Tobacco Cessation Program If [place] is your medical insurance provider, there are more free resources available to you, including: No copays or deductibles on local tobacco cessation counseling services to help you quit Prescription assistance for tobacco cessation medications to help you quit For details about the tobacco cessation program available to [employer] members, go to www.Vusion (Search: Tobacco Cessation Program). [place] Tobacco Quit Line 0-571-MSSY-NOW ( ) is a toll-free, telephonic service that helps [place] residents quit smoking and using tobacco. It is staffed by experts who tailor a quit plan for you and provide you with advice. [place] Tobacco Quit Line 2-958-RXIP-NOW ( ) is a toll-free, telephonic service [...] and resources to help you quit tobacco: [place] Cancer Society--www.cancer.org/healthy/stayawayfromtobacco [place] Heart Association--www.heart.org (Search: Quit Smoking) Centers for Disease Control and Prevention--www.cdc.gov/tobacco [place] Lung Association--www.lungusa.org documented in this encounterF[facility] Miscellaneous Notes* Telephone Encounter - Baylee Chu CMA - 01/02/2025 10:59 AM EDT LVM to see if patient can head over now for his appointment documented in this encounterFayette [facility]07-31-2025 Telephone encounter Note* Telephone Encounter - Baylee Chu CMA - 01/02/2025 10:59 AM EDT LVM to see if patient can head over now for his appointment [facility]06-03-[facility]25 Hospital Discharge instructionsAmbulatory Orders* Referral to Diabetes Management Time Frame: 11/05/24, Location: None [facility] Work Phone: 1(537) 522-473605-08-2025 Consult note Author Pascale Arnold [facility] HospitalNote Date/TimeMay 2024 9:56[place] [address] Cardiology Consult Note Signed Patient: Myra Pickard SR MR#: [id number] : 1965 Acct:[id number] Age/Sex: 59 / M Adm Date: 5 Loc: Room: [address] [place] [address] Type: ADM INOo Attending Dr: Abdullahi Canchola DO Copies to: DO Pascale Guzman MD, FACC Abdullahi Canchola DO~ Cardiology HPI History of [...] post right below-knee amputation February 2024 in [place]. He has COPD followed by pulmonary medicine in [place]. 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 Simon Hernández [...] 07/12/23[History Confirmed 10/10/24] flash glucose scanning reader (DoesThatMakeSense.comStyle Jigar 2 [place]) #1 ea 12/28/23 [Rx Confirmed 10/10/24] flash [...] 32 gauge x 5/32 (Comfort EZ Pen [place]) #100 ea 04/15/24 [Rx Confirmed 10/10/24] hydroxyzine [...] Lymph # (Auto) 2.0 2.0 (1.00-4.8) x10E3/uL [place] # (Auto) 0.8 0.9 H (0.0-0.8) x10E3/uL [...] RCA, nuclear stress test February 2024 in [place] was normal Plan: Continue aggressive risk factors modifications, tobacco cessation, dual antiplatelet therapy, high intensity statin Code(s): I25.10 - Atherosclerotic heart disease of telida coronary artery without angina pectoris Documented By: Pascale Arnold MD, [facility] 5 0913 Signed By: <Electronically signed by MD JOHNATHAN Arnold> 10/11/24 0956 [facility] Work Phone: 1(712) 214-721704-25-2025 NotePatient Education Urology Acute Urinary Retention, Male [...] these instructions at home: Medicines ??? Take mgms-[id number] and prescription medicines only as told by [...] provider. Document Revised: 02/10/2021 Document Reviewed: 02/10/2021 ElseWhereverTV Patient Education ? 2023 [employer] 08-30-2024 Hospital Discharge instructionsAmbulatory Orders* Referral to Pain Management Time Frame: 08/30/24, Location: None Selected [facility] Work Phone: 1([phone]) 334-214103-11-2025 [place] [address] Discharge Summary Signed Patient: Myra Pickard SR MR#: [id number] : 1965 Acct:[id number] Age/Sex: 59 / M Adm Date: 5 Loc: Room: [address] [place] [address]: Kevon Viera MD Copies to: [...] (DME) pen needle, diabetic [Comfort EZ Pen [place]] 32 gauge x 5/32 needle See Rx [...] Instructions: As directed (DME) FreeStyle Jigar 2 [place] Misc See Rx Instructions .Route Qty: 1 [...] MD 08/13/24 14 35 Signed By: 08/13/[address] [place], [place] 5102603-11-2025 Progress note Author Maurice Francis [facility] HospitalNote Date/TimeMarch 2024 11:06[place] [address] Nephrology Progress Note Signed Patient: Myra Pickard MR#: [id number] : 1965 Acct:[id number] Age/Sex: 59 / M Adm Date: 5 Loc: Room: [address] [place] [address] Type: ADM IN Attending Dr: Kevon Viera [...] Skin: No rashes , warm to touch 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 HEALTH COORDINATOR: Awake,Alert, 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 Musculoskeletal: No swelling [...] 5,000 Unit/Ml Vial) 5,000 unit SUBCUT Q12HR [facility] Stop: 08/11/25 08:59 Last Admin: 08/13/24 08:25 Dose: 5,000 unit Hydralazine HCl (Hydralazine 20 Mg/Ml Vial) 10 mg IV-PUSH Q4H PRN PRN Reason: if SBP > 185 Stop: 08/11/25 05:38 Ferric Sodium Gluconate Complex 250 mg/ Sodium Chloride 270 mls @ 135 mls/hr IVQAM [facility] Stop: 08/14/24 10:59 Last Admin: 08/12/24 09:19 Dose: 135 mls/hr Insulin Aspart (Insulin Aspart 300 Units/3 Ml) 0 units SUBCUT TID.[facility]; Protocol Stop: 08/11/25 07:59 Last Admin: 08/13/24 08:25 Dose: 1 units Ipratropium [place] (Ipratropium [place] 0.5 Mg/2.5 Ml Vial.Neb) 0.5 mg INHALATION QID.RESP [facility] Stop: 08/11/25 07:59 Last Admin: 08/13/24 07:54 Dose: 0.5 mg Isosorbide Mononitrate (Isosorbide Mononitrate 24hr Er 30 Mg Tab.Er.24h) 30 mg PO DAILY [facility] Stop: 08/11/25 08:59 Last Admin: 08/13/24 08:25 Dose: 30 mg Metoprolol Tartrate (Metoprolol Tartrate 100 Mg Tablet) 100 mg PO BID [facility] Stop: 08/11/25 08:59 Last Admin: 08/13/24 08:25 Dose: 100 mg Pantoprazole Sodium (Pantoprazole 40 Mg Tablet.Dr) 40 mg PO BID [facility] Stop: 08/11/25 08:59 Last Admin: 08/13/24 08:25 Dose: 40 mg Pregabalin (Pregabalin 75 Mg Capsule) 75 mg PO TID [facility] Stop: 02/07/25 08:59 Last Admin: 08/13/24 [...] weeks Documented By: Maurice Francis MD 08/13/24 0815 Signed By: <Electronically signed by Maurice Francis MD> 08/13/24 [facility]6 [facility] Work Phone: 1(611) [phone] [place] [address] Nephrology Progress Note Signed Patient: Myra Pickard SR MR#: [id number] : 1965 Acct:[id number] Age/Sex: 59 / M Adm Date: 5 Loc: Room: [address] [place] [address] Type: ADM IN Attending Dr: Kevon Viera [...] Skin: No rashes , warm to touch 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 HEALTH COORDINATOR: Awake,Alert, 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 Musculoskeletal: No swelling [...] Mg/200 Unit Tablet) 2 tab PO TID.WITH.MEALS [facility] Stop: 08/11/25 07:59 Last Admin: 08/13/24 [...] Chloride 270 mls @ 135 mls/hr IVQAM [facility] Stop: 08/14/24 10:59 Last Admin: 08/12/24 09:19 Dose: 135 mls/hr Insulin Aspart (Insulin Aspart 300 Units/3 Ml) 0 units SUBCUT TID.[facility]; Protocol Stop: 08/11/25 07:59 Last Admin: 08/13/24 08:25 Dose: 1 units Ipratropium [place] (Ipratropium [place] 0.5 Mg/2.5 Ml Vial.Neb) 0.5 mg INHALATION QID.RESP [place] Stop: 08/11/25 07:59 Last Admin: 08/13/24 07:54 Dose: 0.5 mg Isosorbide Mononitrate (Isosorbide Mononitrate 24hr Er 30 Mg Tab.Er.24h) 30 mg PO DAILY [facility] Stop: 08/11/25 08:59 Last Admin: 08/13/24 08:25 Dose: 30 mg Metoprolol Tartrate (Metoprolol Tartrate 100 Mg Tablet) 100 mg PO BID [facility] Stop: 08/11/25 08:59 Last Admin: 08/13/24 08:25 Dose: 100 mg Pantoprazole Sodium (Pantoprazole 40 Mg Tablet.Dr) 40 mg PO BID [facility] Stop: 08/11/25 08:59 Last Admin: 08/13/24 08:25 Dose: 40 mg Pregabalin (Pregabalin 75 Mg Capsule) 75 mg PO TID [facility] Stop: 02/07/25 08:59 Last Admin: 08/13/24 08:25 Dose: 75 mg Ropinirole HCl (Ropinirole 1 Mg Tablet) 1 mg PO TID [facility] Stop: 08/11/25 08:59 Last Admin: 08/13/24 [...] MD 08/13/24 0855 Signed By: 08/13/24 1106 [facility]03-10-[facility]25 Progress note Author Kevon Viera [facility] HospitalNote Date/TimeMarch 2024 3:16pmPro[place] [address] Hospitalist Progress Note Signed Patient: Myra Pickard SR MR#: [id number] : 1965 Acct:[id number] Age/Sex: 59 / M Adm Date: 5 Loc: 3T Room: [address] [place] [address] Type: ADM IN Attending Dr: Kevon Viera [...] 1 units TID.[facility] Administration Protocol Ipratropium [place] 0.5 mg 08/11/24 08:00 08/12/24 12:31 Ipratropium [place] 0.5 Mg/2.5 Ml Vial.Neb INHALATION 08/11/25 07:59 [...] <Electronically signed by Kevon Viera MD> 08/12/24 [facility] Work Phone: 1(430) 980-545603-10-2025 [place] [address] Hospitalist Progress Note Signed Patient: Myra Pickard SR MR#: [id number] : 1965 Acct:[id number] Age/Sex: 59 / M Adm Date: 5 Loc: Room: [address] [place] [address] Type: ADM IN Attending Dr: Kevon Viera [...] 1 units TID.[facility] [place] Administration Protocol Ipratropium [place] 0.5 mg 08/11/24 08:00 08/12/24 12:31 Ipratropium [place] 0.5 Mg/2.5 Ml Vial.Neb INHALATION 08/11/25 07:59 [...] 08/12/24 15 12 Signed By: 08/12/24 1516 [facility]03-10-2025 Progress note Author Maurice Francis [facility] HospitalNote Date/TimeMarch 2024 11:[address] [address] Nephrology Progress Note Signed Patient: Myra Pickard SR MR#: [id number] : 1965 Acct:[id number] Age/Sex: 59 / M Adm Date: 5 Loc: 3T Room: [address] [place] [address] Type: ADM IN Attending Dr: Kevon Viera [...] Skin: No rashes , warm to touch 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 HEALTH COORDINATOR: Awake,Alert, 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 Musculoskeletal: No swelling [...] 25 Mg Tablet) 25 mg PO HS [facility] Stop: 08/11/25 21:59 Last Admin: 08/11/24 21:17 Dose: 25 mg Aspirin (Aspirin 81 Mg Tablet.) 81 mg PO DAILY [facility] Stop: 08/11/25 08:59 Last Admin: 08/12/24 08:27 Dose: 81 mg Atorvastatin Calcium (Atorvastatin 80 Mg Tablet) 80 mg PO DAILY [facility] Stop: 08/11/25 08:59 Last Admin: 08/12/24 08:27 Dose: 80 mg Budesonide/Formoterol Fumarate (Budesonide/Formoterol 160-4.5 Mcg 60 Puff/6 Gm Hfa.Aer.Ad) 2 puff INHALATION BID [facility] Stop: 08/11/25 08:59 Last Admin: 08/12/24 08:52 Dose: 2 puff Calcium Carbonate (Calcium Carbonate/Vitamin D3 500 Mg/200 Unit Tablet) 2 tab PO TID.WITH.MEALS [facility] Stop: 08/11/25 07:59 Last Admin: 08/12/24 08:27 Dose: 2 tab Clopidogrel Bisulfate (Clopidogrel Bisulfate 75 Mg Tablet) 75 mg PO DAILY [facility] Stop: 08/11/25 08:59 Last Admin: 08/12/24 08:27 Dose: 75 mg Cyanocobalamin (Cyanocobalamin 1,000 Mcg/Ml Vial) 1,000 mcg IM DAILY [facility] Stop: 08/17/24 09:01 Last Admin: 08/12/24 [...] 5,000 Unit/Ml Vial) 5,000 unit SUBCUT Q12HR [facility] Stop: 08/11/25 08:59 Last Admin: 08/12/24 08:27 Dose: 5,000 unit Hydralazine HCl (Hydralazine 20 Mg/Ml Vial) 10 mg IV-PUSH Q4H PRN PRN Reason: if SBP > 185 Stop: 08/11/25 05:38 Potassium Chloride/Sodium Chloride (0.9 % Nacl-20 Meq Kcl) 1,000 mls @ 125 mls/hr IV .Q8H [facility] Stop: 08/11/25 07:14 Last Admin: 08/12/24 08:26 Dose: 125 mls/hr Ferric Sodium Gluconate Complex 250 mg/ Sodium Chloride 270 mls @ 135 mls/hr IVQAM [facility] Stop: 08/14/24 10:59 Last Admin: 08/12/24 09:19 Dose: 135 mls/hr Insulin Aspart (Insulin Aspart 300 Units/3 Ml) 0 units SUBCUT TID.WM[facility]; Protocol Stop: 08/11/25 07:59 Last Admin: 08/12/24 08:27 Dose: Not Given Ipratropium [place] (Ipratropium [place] 0.5 Mg/2.5 Ml Vial.Neb) 0.5 mg INHALATION [...] a.m. Documented By: Maurice Francis MD 08/12/24 1119 Signed By: <Electronically signed by Maurice Francis MD> 08/12/24 1144 [facility] Work Phone: 1(162) 708-622503-10-2025 [place] [address] Nephrology Progress Note Signed Patient: Myra Pickard SR MR#: [id number] : 1965 Acct:[id number] Age/Sex: 59 / M Adm Date: 5 Loc: Room: [address] [place] [address] Type: ADM IN Attending Dr: Kevon Viera [...] Skin: No rashes , warm to touch 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 HEALTH COORDINATOR: Awake,Alert, 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 Musculoskeletal: No swelling [...] 25 Mg Tablet) 25 mg PO HS [facility] Stop: 08/11/25 21:59 Last Admin: 08/11/24 21:17 Dose: 25 mg Aspirin (Aspirin 81 Mg Tablet.) 81 mg PO DAILY [facility] Stop: 08/11/25 08:59 Last Admin: 08/12/24 08:27 Dose: 81 mg Atorvastatin Calcium (Atorvastatin 80 Mg Tablet) 80 mg PO DAILY [facility] Stop: 08/11/25 08:59 Last Admin: 08/12/24 08:27 Dose: 80 mg Budesonide/Formoterol Fumarate (Budesonide/Formoterol 160-4.5 Mcg 60 Puff/6 Gm Hfa.Aer.Ad) 2 puff INHALATION BID [facility] Stop: 08/11/25 08:59 Last Admin: 08/12/24 08:52 Dose: 2 puff Calcium Carbonate (Calcium Carbonate/Vitamin D3 500 Mg/200 Unit Tablet) 2 tab PO TID.WITH.MEALS [facility] Stop: 08/11/25 07:59 Last Admin: 08/12/24 08:27 Dose: 2 tab Clopidogrel Bisulfate (Clopidogrel Bisulfate 75 Mg Tablet) 75 mg PO DAILY [place] Stop: 08/11/25 08:59 Last Admin: 08/12/24 08:27 Dose: 75 mg Cyanocobalamin (Cyanocobalamin 1,000 Mcg/Ml Vial) 1,000 mcg IM DAILY [facility] Stop: 08/17/24 09:01 Last Admin: 08/12/24 [...] 5,000 Unit/Ml Vial) 5,000 unit SUBCUT Q12HR [facility] Stop: 08/11/25 08:59 Last Admin: 08/12/24 08:27 Dose: 5,000 unit Hydralazine HCl (Hydralazine 20 Mg/Ml Vial) 10 mg IV-PUSH Q4H PRN PRN Reason: if SBP > 185 Stop: 08/11/25 05:38 Potassium Chloride/Sodium Chloride (0.9 % Nacl-20 Meq Kcl) 1,000 mls @ 125 mls/hr IV .Q8H [facility] Stop: 08/11/25 07:14 Last Admin: 08/12/24 08:26 Dose: 125 mls/hr Ferric Sodium Gluconate Complex 250 mg/ Sodium Chloride 270 mls @ 135 mls/hr IVQAM [facility] Stop: 08/14/24 10:59 Last Admin: 08/12/24 09:19 Dose: 135 mls/hr Insulin Aspart (Insulin Aspart 300 Units/3 Ml) 0 units SUBCUT TID.[facility]; Protocol Stop: 08/11/25 07:59 Last Admin: 08/12/24 08:27 Dose: Not Given Ipratropium [place] (Ipratropium [place] 0.5 Mg/2.5 Ml Vial.Neb) 0.5 mg INHALATION [...] MD 08/12/24 1115 Signed By: 08/12/24 1147 [facility]03-09-[facility]25 Consult note Author Amina KinseyLima Memorial HospitalNote Date/TimeMarch 2024 2:18pmPro[place] [address] Nephrology Consult Note Signed Patient: Myra Pickard SR MR#: [id number] : 1965 Acct:[id number] Age/Sex: 59 / M Adm Date: 5 Loc: Room: [address] [place] [address] Type: ADM IN Attending Dr: Kevon Viera [...] system review is negative today [facility] Medical History Chronic obstructive pulmonary disease, unspecified [...] mass Atrial fibrillation 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 Simon Hernández [...] 07/12/23[History Confirmed 08/11/24] flash glucose scanning reader (DoesThatMakeSense.comStyle Jigar 2 [place]) #1 ea 12/28/23 [Rx Confirmed 08/11/24] flash [...] 32 gauge x 5/32 (Comfort EZ Pen [place]) #100 ea 04/15/24 [Rx Confirmed 08/11/24] hydroxyzine [...] 25 Mg Tablet) 25 mg PO HS [facility] Stop: 08/11/25 21:59 Aspirin (Aspirin 81 [...] 5,000 Unit/Ml Vial) 5,000 unit SUBCUT Q12HR [facility] Stop: 08/11/25 08:59 Last Admin: 08/11/24 [...] 1,000 mls @ 125 mls/hr IV .Q8H [facility] Stop: 08/11/25 07:14 Last Admin: 08/11/24 11:51 Dose: 125 mls/hr Insulin Aspart (Insulin Aspart 300 Units/3 Ml) 0 units SUBCUT TID.[facility]; Protocol Stop: 08/11/25 07:59 Last Admin: 08/11/24 13:40 Dose: Not Given Ipratropium [place] (Ipratropium [place] 0.5 Mg/2.5 Ml Vial.Neb) 0.5 mg INHALATION QID.RESP [facility] Stop: 08/11/25 07:59 Last Admin: 08/11/24 13:00 Dose: 0.5 mg Isosorbide Mononitrate (Isosorbide Mononitrate 24hr Er 30 Mg Tab.Er.24h) 30 mg PO DAILY [facility] Stop: 08/11/25 08:59 Last Admin: 08/11/24 09:13 Dose: 30 mg Metoprolol Tartrate (Metoprolol Tartrate 100 Mg Tablet) 100 mg PO BID [facility] Stop: 08/11/25 08:59 Last Admin: 08/11/24 09:13 Dose: 100 mg Pantoprazole Sodium (Pantoprazole 40 Mg Tablet.Dr) 40 mg PO BID [facility] Stop: 08/11/25 08:59 Last Admin: 08/11/24 09:13 Dose: 40 mg Pregabalin (Pregabalin 75 Mg Capsule) 75 mg PO TID [facility] Stop: 02/07/25 08:59 Last Admin: 08/11/24 13:40 Dose: 75 mg Ropinirole HCl (Ropinirole 1 Mg Tablet) 1 mg PO TID [facility] Stop: 08/11/25 08:59 Last Admin: 08/11/24 13:40 Dose: 1 mg Tamsulosin HCl (Tamsulosin 0.4 Mg Cap.Er.24h) 0.4 mg PO BID [facility] Stop: 08/11/25 08:59 Last Admin: 08/11/24 09:13 Dose: 0.4 mg Tizanidine HCl (Tizanidine 4 Mg Tablet) 4 mg PO QHS [facility] Stop: 08/11/25 21:59 Exam Physical Exam [...] Appearance Clear Urine pH 5.5 Ur Specific [place] 1.024 Urine Protein Negative Urine Glucose (UA) 500 H Urine Ketones Negative Urine Occult Blood Negative Urine Nitrite Negative Ur Leukocyte Esterase Negative Radiology Impressions Impressions - last 24 hours: Impressions Chest X-Ray 08/11/24 04:22 IMPRESSION: No acute process. Impression dictated by: Sudeep Lind M.D.08/11/2024 10:06 AM Dictation Location: [place] [address] 08/11/24 04:22 IMPRESSION: No acute [...] Sudeep Lind M.D.08/11/2024 10:06 AM Dictation Location: [place] [address] Any impression(s) listed above is documentation that [...] signed by Amina Fagan MD> 08/11/24 1418 [facility] Work Phone: 1(431) 561-172503-09-2025 Progress note Author Kevon Viera [facility]Note Date/TimeMarch 2024 1:21pmPro[place] [address] Progress Note Signed Patient: Myra Pickard SR MR#: [id number] : 1965 Acct:[id number] Age/Sex: 59 / M Adm Date: 5 Loc: 3T Room: [address] [place] [address] Type: ADM IN Attending Dr: Kevon Viera [...] <Electronically signed by Kevon Viera MD> 08/11/24 1329 [facility] Work Phone: 1(994) 715-319603-09-2025 Consult [place] [phone] Nephrology Consult Note Signed Patient: Myra Pickard SR MR#: [id number] : 1965 Acct:[id number] Age/Sex: 59 / M Adm Date: 5 Loc: Room: [address] [place] [address] Type: ADM IN Attending Dr: Kevon Viera [...] system review is negative today [facility] Medical History Chronic obstructive pulmonary disease, unspecified [...] mass Atrial fibrillation 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 Simon Hernández [...] 07/12/23[History Confirmed 08/11/24] flash glucose scanning reader (LiveReyle Jigar 2 [place]) #1 ea 12/28/23 [Rx Confirmed 08/11/24] flash glucose sensor (DoesThatMakeSense.comStyle Jigar 2 Sensor kit) #1 ea 12/28/23 [...] 32 gauge x 5/32 (Comfort EZ [place]) #100 ea 04/15/24 [Rx Confirmed 08/11/24] hydroxyzine HCl 25 mg tablet 25 mg PO QHS #90 tabs 12/02/24 [Rx Confirmed 05/07/24] amitriptyline 25 mg tablet [...] 1,000 Mcg/Ml Vial) 1,000 mcg IM DAILY [facility] Stop: 08/17/24 09:01 Last Admin: 08/11/24 [...] 5,000 Unit/Ml Vial) 5,000 unit SUBCUT Q12HR [facility] Stop: 08/11/25 08:59 Last Admin: 08/11/24 [...] 1,000 mls @ 125 mls/hr IV .[facility]H [facility] Stop: 08/11/25 07:14 Last Admin: 08/11/24 11:51 Dose: 125 mls/hr Insulin Aspart (Insulin Aspart 300 Units/3 Ml) 0 units SUBCUT TID.WM.[facility]; Protocol Stop: 08/11/25 07:59 Last Admin: 08/11/24 13:40 Dose: Not Given Ipratropium [place] (Ipratropium [place] 0.5 Mg/2.5 Ml Vial.Neb) 0.5 mg INHALATION [...] 1 Mg Tablet) 1 mg PO TID [facility] Stop: 08/11/25 08:59 Last Admin: 08/11/24 13:40 Dose: 1 mg Tamsulosin HCl (Tamsulosin 0.4 Mg Cap.Er.24h) 0.4 mg PO BID SATISH Stop: 08/11/25 08:59 Last Admin: 08/11/24 09:13 Dose: 0.4 mg Tizanidine HCl (Tizanidine 4 Mg Tablet) 4 mg PO QHS [facility] Stop: 08/11/25 21:59 Exam Physical Exam [...] Appearance Clear Urine pH 5.5 Ur Specific [place] 1.024 Urine Protein Negative Urine Glucose (UA) 500 H Urine Ketones Negative Urine Occult Blood Negative Urine Nitrite Negative Ur Leukocyte Esterase Negative Radiology Impressions Impressions - last 24 hours: Impressions Chest X-Ray 08/11/24 04:22 IMPRESSION: No acute process. Impression dictated by: Sudeep Lind M.D.08/11/2024 10:06 AM Dictation Location: [place] [address] 08/11/24 04:22 IMPRESSION: No acute [...] Sudeep Lind M.D.08/11/2024 10:06 AM Dictation Location: [place] [address] Any impression(s) listed above is documentation that [...] Fagan MD 08/11/24 1405 Signed By: 08/11/[address] [place], [place] 5536403-09-2025 [place] [address] Progress Note Signed Patient: Myra Pickard MR#: [id number] : 1965 Acct:[id number] Age/Sex: 59 / M Adm Date: 5 Loc: Room: [address] [place] [address] Type: ADM IN Attending Dr: Kevon Viera [...] 08/11/24 13 20 Signed By: 08/11/24 1321 [facility]03-09-2025 Radiology Diagnostic study note [facility] Main [place] [address] [place] [address] CT Scan Report Signed Patient: Myra Pickard SR MR#: [id number] : 1965 Acct:[id number] Age/Sex: 59 / M ADM Date: 5 Loc: 3T Room: [address] [place] [address] Type: ADM IN Attending Dr: Kevon Viera MD Copies to: MD Francisco Urbina Jr, MD~ Ordering Provider: Francisco Duncan Jr, MD Date of Service: 08/11/24 CT/CT head stroke alert wo con: acute stroke/neuro deficits ([id number]) CT/CT angio neck: L side numb ([id number]) CT/CT angio head: L side numb Unenhanced [...] Sudeep Lind M.D.08/11/2024 10:06 AM Dictation Location: [place] [address] Transcribed By: [facility] 08/11/24 1006 Dictated By: Sudeep Lind DO 08/11/24 1000 Signed By: 08/11/24 1006 [facility]03-09-2025 History and physical note Author Marge Andino [facility] HospitalNote Date/TimeMarch 2024 7:24[place] [address] Hospitalist H&P Signed Patient: Myra Pickard SR MR#: [id number] : 1965 Acct:[id number] Age/Sex: 59 / M Adm Date: 5 Loc: Room: [address] [place] [address] Type: ADM IN Attending Dr: Kevon Viera [...] acute findings -official report pending [facility] Medical History Chronic obstructive pulmonary disease, unspecified [...] mass Atrial fibrillation 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 Simon Hernández [...] 07/12/23[History Confirmed 08/11/24] flash glucose scanning reader (DoesThatMakeSense.comStyle Jigar 2 [place]) #1 ea 12/28/23 [Rx Confirmed 08/11/24] flash [...] 32 gauge x 5/32 (Comfort EZ [place]) #100 ea 04/15/24 [Rx Confirmed 08/11/24] hydroxyzine [...] 04:15 Lymph % (Auto) N/A 08/11/24 04:15 [place] % (Auto) N/A 08/11/24 04:15 Eos % (Auto) N/A 08/11/24 04:15 Baso % (Auto) N/A 08/11/24 04:15 Nucleat RBC Rel Count N/A 08/11/24 04:15 Neut # (Auto) N/A 08/11/24 04:15 Lymph # (Auto) N/A 08/11/24 04:15 [place] # (Auto) N/A 08/11/24 04:15 Eos # [...] By: <Electronically signed by Marge Andino MD> 08/11/2424 [facility] Work Phone: 1(748) 206-603503-09-2025 Evaluation note* Diagnosis Onset Date Resolution Status Admit Date Acute kidney injury superimposed on CKD acuteMarch 2024 5:39amBPH loc w urin obs/LUTSacuteMarch 2024 5:39am DiabetesacuteMarch 2024 5:39amHypocalcemiaacuteMarch 2024 5:39am HypokalemiaacuteMarch 2024 5:39amHypomagnesemiaacuteMarch 2024 5:39am Iron deficiencyacuteMarch 2024 5:39amLeft sided numbnessacuteMarch 2024 5:39amParesthesiasacuteMarch 2024 5:39amVitamin B12 deficiencyacute August 11, 2024 5:39amHypertensionchronicMarch 2024 5:39am [facility] Work Phone: 1(549) 640-942403-09-2025 Evaluation note* Diagnosis Onset Date Resolution Status Admit Date Hypocalcemia acuteMarch 2024 5:39amHypokalemiaacuteAugch 2024 5:39amHypomagnesemia acuteMarch 2024 5:39amAcute kidney injury superimposed on CKDinactiveMarch 2024 5:39amBPH loc w urin obs/LUTSinactiveMarch 2024 5:39amDiabetes inactiveMarch 2024 5:39amHypertensioninactiveMarch 2024 5:39amIron deficiencyinactiveMarch 2024 5:39amLeft sided numbnessinactiveMarch 2024 5:39amParesthesiasinactiveMarch 2024 5:39amVitamin B12 deficiency inactiveMarch 2024 5:39amAnemia of renal diseaseacuteAugch 2024 8:37amChronic kidney disease, stage 3bacuteAugch 2024 8:37amDiabetic nephropathy associated with type 2 diabetes mellitusacuteMarch 2024 8:37am HypocalcemiaacuteMarch 2024 8:37amHypokalemiaacuteMarch 2024 8:37am HypomagnesemiaacuteMarch 2024 8:37amNeuropathyacuteMarch 2024 8:37am Non compliance w medication regimenacuteMar2024 8:37am [facility] Work Phone: 1(230) 459-279403-09-2025 Evaluation note* Diagnosis Onset Date Resolution Status Admit Date Hypocalcemia acuteMarch 2024 5:39amHypokalemiaacuteMarch 2024 5:39amHypomagnesemia acuteMarch 2024 5:39amAcute kidney injury superimposed on CKDinactiveMar 2024 5:39amBPH loc w urin obs/LUTSinactiveMarch 2024 5:39amDiabetes inactiveMarch 2024 5:39amHypertensioninactiveMarch 2024 5:39amIron deficiencyinactiveMarch 2024 5:39amLeft sided numbnessinactiveMar 2024 5:39amParesthesiasinactiveMar 2024 5:39amVitamin B12 deficiency inactiveAcutecare Health Systemch 2024 5:39amAnemia of renal diseaseacuteMarch 2024 8:37amChronic kidney disease, stage 3bacuteMar2024 8:37amDiabetic nephropathy associated with type 2 diabetes mellitusacuteMar2024 8:37am HypocalcemiaacuteMarch 2024 8:37amHypokalemiaacuteMarch 2024 8:37am HypomagnesemiaacuteMar2024 8:37amNeuropathyacuteMar2024 8:37am Non compliance w medication regimenacuteMarch 2024 8:37amChest painacute October 10, 2024 6:25pm [facility] Work Phone: 1(130) 829-756103-09-2025 Evaluation note* Diagnosis Onset Date Resolution Status Admit Date Hypocalcemia acuteMarch 2024 5:39amHypokalemiaacuteMarch 2024 5:39amHypomagnesemia acuteMarch 2024 5:39amAcute kidney injury superimposed on CKDinactiveMarch 2024 5:39amBPH loc w urin obs/LUTSinactiveMarch 2024 5:39amDiabetes inactiveMarch 2024 5:39amHypertensioninactiveMarch 2024 5:39amIron deficiencyinactiveMarch 2024 5:39amLeft sided numbnessinactiveMarch 2024 5:39amParesthesiasinactiveMarch 2024 5:39amVitamin B12 deficiency inactiveMarch 2024 5:39amAnemia of renal diseaseacuteMarch 2024 8:37amChronic kidney disease, stage 3bacuteMarch 2024 8:37amDiabetic nephropathy associated with type 2 diabetes mellitusacuteMarch 2024 8:37am HypocalcemiaacuteMarch 2024 8:37amHypokalemiaacuteMarch 2024 8:37am HypomagnesemiaacuteMarch 2024 8:37amNeuropathyacuteMarch 2024 8:37am Non compliance w medication regimenacuteMarch 2024 8:37amCAD (coronary artery disease)inactiveMay 2024 6:25pmChronic kidney diseaseinactiveMay 2024 6:25pmChronic obstructive pulmonary disease, unspecifiedinactiveMay 2024 6:25pmHistory of below-knee amputation of right lower extremity inactiveMay 2024 6:25pmHyperlipidemiainactiveMay 2024 6:25pmChest pain deletedOctober 10, 2024 6:25pm [facility] Work Phone: 1(174) 826-126603-09-2025 Evaluation note* Diagnosis Onset Date Resolution Status Admit Date Hypocalcemia acuteMarch 2024 5:39amHypokalemiaacuteMarch 2024 5:39amHypomagnesemia acuteMarch 2024 5:39amIron deficiencyacuteMarch 2024 5:39amVitamin B12 deficiencyacuteMarch 2024 5:39amAcute kidney injury superimposed on CKD inactiveMarch 2024 5:39amBPH loc w urin obs/LUTSinactiveMarch 2024 5:39amDiabetesinactiveMarch 2024 5:39amHypertensioninactiveMarch 2024 5:39amLeft sided numbnessinactiveMarch 2024 5:39amParesthesiasinactiveMarch 2024 5:39amAnemia of renal diseaseacuteMarch 2024 8:37amChronic kidney disease, stage 3bacuteMarch 2024 8:37amDiabetic nephropathy associated with type 2 diabetes mellitusacuteAcutecare Health Systemch 2024 8:37amHypocalcemia acuteSelect [facility] 2024 8:37amHypokalemiaacuteAcutecare Health Systemch 2024 8:37am HypomagnesemiaacuteAcutecare Health Systemch 2024 8:37amNeuropathyacuteAcutecare Health Systemch 2024 8:37am Non compliance w medication regimenacuteMarch 2024 8:37amCAD (coronary artery disease)acuteMny 2024 6:25pmHistory of below-knee amputation of right lower extremityacuteMay 2024 6:25pmChronic kidney diseaseinactiveMay 2024 6:25pmChronic obstructive pulmonary disease, unspecifiedinactiveMay 2024 6:25pmHyperlipidemiainactiveMay 2024 6:25pmChest paindeletedMay 2024 6:25pmAnemia of renal diseaseacuteJune 2024 1:08pmCAD (coronary artery disease)acuteJune 2024 1:08pmCigarette nicotine dependence with nicotine-induced disorderacuteJun2024 1:08pmDiabetic nephropathy associated with type 2 diabetes mellitusacuteQuorum Healthe 2024 1:08pmHistory of below-knee amputation of right lower extremityacuteJune 2024 1:08pm HypocalcemiaacuteJune 2024 1:08pmVitamin D deficiency2024 1:08pmAnemia of renal diseaseacuteNovember 05, 2024 4:13pmBMI 34.0-34.9,adultacute November 05, 2024 4:13pmChronic kidney disease, stage 3bacuteNovember 05, 2024 4:13pm Diabetic nephropathy associated with type 2 diabetes mellitusacuteNovember 05, 2024 4:13pmGoutacuteJun2024 4:13pmHypertensive nephropathyacuteNovember 05, 2024 4:13pmHypomagnesemiaacuteNovember 05, 2024 4:13pmIron deficiency2024 4:13pmVitamin D deficiency2024 4:13pmBPH loc w urin obs/LUTS inactiveNovember 05, 2024 4:13pm [facility] Work Phone: 1(503) 882-532103-09-2025 Evaluation note* Diagnosis Onset Date Resolution Status Admit Date Hypocalcemia acuteAcutecare Health Systemch 2024 5:39amHypokalemiaacuteMarch 2024 5:39amHypomagnesemia acuteMarch 2024 5:39amAcute kidney injury superimposed on CKDinactiveMarch 2024 5:39amBPH loc w urin obs/LUTSinactiveMarch 2024 5:39amDiabetes inactiveMarch 2024 5:39amHypertensioninactiveMarch 2024 5:39amIron deficiencyinactiveMarch 2024 5:39amLeft sided numbnessinactiveMarch 2024 5:39amParesthesiasinactiveMarch 2024 5:39amVitamin B12 deficiency inactiveMarch 2024 5:39amAnemia of renal diseaseacuteMar2024 8:37amChronic kidney disease, stage 3bacuteMar2024 8:37amDiabetic nephropathy associated with type 2 diabetes mellitusacuteMar2024 8:37am HypocalcemiaacuteMar2024 8:37amHypokalemiaacuteMar2024 8:37am HypomagnesemiaacuteMarch 2024 8:37amNeuropathyacuteMarch 2024 8:37am Non compliance w medication regimenacuteMarch 2024 8:37amCAD (coronary artery disease)acuteMay 2024 6:25pmHistory of below-knee amputation of right lower extremityacuteMay 2024 6:25pmChronic kidney diseaseinactiveMay 2024 6:25pmChronic obstructive pulmonary disease, unspecifiedinactiveMay 2024 6:25pmHyperlipidemiainactiveMay 2024 6:25pmChest paindeletedMay 2024 6:25pmAnemia of renal diseaseacuteQu[facility]al[facility] 2024 1:08pmCAD (coronary artery disease)acuteQuorum Healthe 2024 1:08pmCigarette nicotine dependence with nicotine-induced disorderacuteQu[facility]al[facility] 2024 1:08pmDiabetic nephropathy associated with type 2 diabetes mellitusacuteQuorum Healthe 2024 1:08pmHistory of below-knee amputation of right lower extremityacuteQu[facility]althe 2024 1:08pm HypocalcemiaacuteQuorum Healthe 2024 1:08pmVitamin D deficiencyacuteQuorum Healthe 2024 1:08pm [facility] Work Phone: 1(260) 672-442903-09-2025 [place] [address] Hospitalist H&P Signed Patient: Myra Pickard SR MR#: [id number] : 1965 Acct:[id number] Age/Sex: 59 / M Adm Date: 5 Loc: Room: [address] [place] [address] Type: ADM IN Attending Dr: Kevon Viera [...] acute findings -official report pending [facility] Medical History Chronic obstructive pulmonary disease, unspecified [...] mass Atrial fibrillation 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 Simon Hernández [...] 07/12/23[History Confirmed 08/11/24] flash glucose scanning reader (DoesThatMakeSense.comStyle Jigar 2 [place]) #1 ea 12/28/23 [Rx Confirmed 08/11/24] flash [...] 32 gauge x 5/32 (Comfort EZ [place]) #100 ea 04/15/24 [Rx Confirmed 08/11/24] hydroxyzine [...] 04:15 Lymph % (Auto) N/A 08/11/24 04:15 [place] % (Auto) N/A 08/11/24 04:15 Eos % (Auto) N/A 08/11/24 04:15 Baso % (Auto) N/A 08/11/24 04:15 Nucleat RBC Rel Count N/A 08/11/24 04:15 Neut # (Auto) N/A 08/11/24 04:15 Lymph # (Auto) N/A 08/11/24 04:15 [place] # (Auto) N/A 08/11/24 04:15 Eos # [...] Marge Andino MD 08/11/2417 Signed By: 08/11/2424 [facility]03-04-2025 NotePatient Education Urology Orchitis Orchitis is [...] by your health care provider. ??? Take smbv-seq-gdegbhn and prescription medicines only as told by [...] medicines to fight th (more content not included)...[facility]12-23-2024 Hospital Discharge instructions Patient Education [...] urethra. Follow these instructions at home: Take codl-hmt-vndjqmd and prescription medicines only as told by [...] provider. Document Revised: 12/08/2021 Document Reviewed: 12/08/2021 [employer] Patient Education 2023 [employer]. Follow Up Care 04/01/2024 10:56:08 With:SOLEDAD HERRERA, Yeyo Blum, URL Address: [facility] [address], [place] [address]- [phone] When: Unknown [facility] Aurelio 12-23-2024 NotePatient Education Urology Benign [...] Follow these instructions at home: ??? Take fjlr-yvs-vooooft and prescription medicines only as told by [...] symptoms do not get (more content not included)...[facility]12-23-2024 Evaluation + Plan note Diagnostic Tests Pending * PSA Total 05/27/24 Future Scheduled Tests Radiology* US PVR Lower EXT Complete Bilat 11/20/23 [facility] 12-03-2024 Evaluation note* Diagnosis Onset Date Resolution Status Admit Date Anemia of renal disease acuteDecemb2023 4:21pmBMI 34.0-34.9,adultacuteDecember 2023 4:21pm BPH loc w urin obs/LUTSacutece2023 4:21pmChronic kidney disease, stage 3bacuteDecemb2023 4:21pmDiabetic nephropathy associated with type 2 diabetes mellitusacuteMay 07, 2024 4:21pmGoutacuteDecemb2023 4:21pmHypertensive nephropathyacutecemb2023 4:21pmHypomagnesemiaacute Juan 2023 4:21pm [facility] Work Phone: 1(431) 355-253311-19-2024 [place] [id number] EGD Procedure Note Signed Patient: Myra Pickard SR MR#: [id number] : 1965 Acct:[id number] Age/Sex: 58 / M Adm Date: 4 Loc: Room: Type: [facility] Attending Dr: Mike Burleson MD Copies to: Teresa Mari LynchDO Mike Burleson MD~ Esophagogastroduodenoscopy Date/Provider Date: 04/23/2024 Mike Burleson [...] MD 04/23/24 1350 Signed By: 04/23/24 1358 [facility]11-19-2024 History and physical [place] [id number] Gastroenterology H&P Signed Patient: Myra Pickard SR MR#: [id number] : 1965 Acct:[id number] Age/Sex: 58 / M Adm Date: 4 Loc: Room: Type: [facility] Attending Dr: Mike Burleson [...] MD 04/23/24 1349 Signed By: 04/23/24 1350 [facility]11-01-2024 Evaluation note* Author Cat Byrd [facility] HospitalAuthoredNovember 2023 1:29pmSooner if needed, the ER if concerns,The above note written by Cat Byrd LPN acting as human recorder, note dictated by Dr. Teresa Lynch [facility] Work Phone: 1(383) 535-971710-18-2024 Miscellaneous Notes* Telephone Encounter - Moncho Stevenson - 03/22/2024 11:24 PM EDT Contract: 198 - Re: high Blood Sugars . Called Dr. Tam and connected to caller documented [facility] Telephone encounter Note* Telephone Encounter - Moncho Stevenson - 03/22/2024 11:24 PM EDT Contract: 198 - Re: high Blood Sugars . Called Dr. Tam and connected to caller [facility] [id number] History of Present illness Narrative* Guero Tam, - 03/19/2024 5:25 PM EDT Patient Name: Myra Pickard Date of : 1965 Date of Service: 03/19/2024 Facility: [facility] Type of Visit: Skilled Visit Subjective Myra Pickard is a 58 y.o. male [facility] for No chief complaint on file. [...] polyneuropathy associated with type 2 diabetes mellitus ([facility]) 2. Encounter for orthopedic aftercare following [...] BY: Guero Tam DO documented in this encounterFayette [facility]10-11-2024 History of Present illness Narrative* Guero Tam, DO - 03/15/2024 6:27 PM EDT Patient Name: Myra Pickard Date of : 1965 Date of Service: 03/15/2024 Facility: [facility] Type of Visit: Admission H&P Subjective Myra Pickard is a 58 y.o. male seen today [facility] for admission for therapies. Myra [facility] to [facility] from [facility] where he was admitted for altered [...] polyneuropathy associated with type 2 diabetes mellitus ([facility]) 2. Disorientation 3. Other abnormalities of gait and mobility 4. Status post partial amputation of right foot ([facility] 5. Atherosclerosis of telida coronary artery of telida heart without angina pectoris 6. Atrial fibrillation ([facility]) 7. Primary hypertension Admit to [facility] for therapies. Plan to do therapy and then go home in a few weeks. Continue current regimen. Full code. Good rehab potential. ELECTRONICALLY SIGNED BY: Guero Tam DO documented in this encounterCrystal Clinic Orthopedic CenterDTT [id number] Miscellaneous Notes* Telephone Encounter - Nancy Kim CMA - 03/15/2024 10:10 AM EDT Patients spouse called in to question about getting a ultrasound tester sock. Stated patient is currently isin a care facility. Please advise and call spouse. documented in this encounterF[facility]10-11-2024 Telephone encounter Note* Telephone Encounter - Nancy Kim CMA - 03/15/2024 10:10 AM EDT Patients spouse called in to question about getting a ultrasound tester sock. Stated patient is currently [facility] facility. Please advise and call spouse. [facility]10-09-2024 Discharge summary Author Remberto Ervin [facility] March 13, 2024 9:46amNote Date/TimeOct2023 9:46am[place] [address] Discharge Summary Signed Patient: Myra Pickard SR MR#: [id number] : 1965 Acct:[id number] Age/Sex: 58 / M Adm Date: 4 Loc: Room: [address] [place] [address]: Remberto Ervin MD Copies to: [...] in collaboration with other specialists and client support professional. Patient came in with a change in [...] not receiving having any additional diagnostic or therapeuticintervention orobservation. At this time, I do not have any clear or strong clinical justification to extend inpatient hospitalization. Patient however will requireclose and frequent monitoring as well as additional work-up, investigation and therapeutic intervention that could take place from thispoint on post discharge. That is to prevent relapse, decompensation, rehospitalization and other medical implications. I instructed patient to ask her primary care doctor to obtain [facility] record entirely to address abnormalities seen on labs and imagingthat I have and have not addressed during this hospitalization, follow-up on pending blood work, imaging and pathology is if available and to follow-up on needed medical care in the outpatient setting. Time Spent with Patient Time spent providing/coordinating discharge services (# min): 45 Discharge Plan Discharge Plan Patient Disposition: Halfway Facility Activity: No Activity Restriction Additional Instructions: I may not have addressed or treated all of your medical illnesses or the abnormal blood work or imaging studies during this hospitalization. Please ask your primary care provider to obtain [facility] records entirely to follow up on all of the abnormal physical, laboratory, and imaging findings thatI have not addressed. Please return back to the emergency room or seek medical attention if your symptoms worsen or return. Discharging you from [facility] does not mean that your medical [...] mg PO TID omeprazole 40 mg capsule,delayed release(/EC) 40 mg PO DAILY ropinirole 1 mg [...] Instructions: As directed (DME) FreeStyle Jigar 2 [place] Misc See Rx Instructions .ROUTE Qty: 1 [...] 16:02 Blood Culture Stat 03/10/24 06:49 NMDA [X-epyrac-G-Aspartate IgG, Ser] IN AM Preliminary micro results [...] % (Auto) 66.7, Lymph % (Auto) 14.7, [place] % (Auto) 14.4, Eos % (Auto) 3.0, Baso % (Auto) 1.2, Nucleat RBC Rel Count 0.1, Neut #(Auto) 4.0, Lymph # (Auto) 0.9 L, [place] # (Auto) 0.9 H, Eos # (Auto) 0.2, Baso # (Auto) 0.1, PHA Creatinine Clear 56.79, Sodium 134 L, Potassium 3.9, Chloride 101, Carbon Dioxide 23.9, Anion Gap 13.0,BUN 18, Creatinine 1.51 H, Est GFR (CKD-EPI) 53.205, Glucose 149 H, Calcium 9.1, Phosphorus 3.0, Magnesium 1.7 L, Total Bilirubin 0.9, AST 28, ALT 38, Alkaline Phosphatase 313 H, Total Protein 7.5, Al bumin 3.6, Globulin 3.9, Albumin/Globulin Ratio 0.9 03/12/24 20:34: POC Glucose 174 03/12/24 16:35: POC Glucose 216 03/12/24 11:18: POC Glucose 230 Documented By: Remberto Ervin MD 03/13/24 0943 Signed By: <Electronically signed by Remberto Ervin MD> 03/13/24 0946 [facility] Work Phone: 1(167) 755-360310-08-2024 Progress note Author João Powell [facility] March 12, 2024 1:46pmNote Date/TimeOct2023 1:34pm[place] [address] Hospitalist Progress Note Signed Patient: Myra Pickard MR#: [id number] : 1965 Acct:[id number] Age/Sex: 58 / M Adm Date: 4 Loc: Room: [address] [place] [address] Type: ADM IN Attending Dr: João Powell [...] and they were unremarkable except for his well- known iron deficiency anemia. His renal function is [...] GI/Abdominal Exam: no tenderness, no organomegaly, negative opllard's sign Extremities Exam Extremities Exam: normal capillary [...] 2 units TID.WM.HS SATISH Administration Protocol Ipratropium [place] 0.5 mg 03/08/24 20:00 03/12/24 09:34 Ipratropium [place] 0.5 Mg/2.5 Ml Vial.Neb INHALATION 03/08/25 19:59 [...] signed by João Powell MD> 03/12/24 1346 [facility] Work Phone: 1(356) 169-334910-08-2024 Progress note Author Mike Burleson [facility] March 12, 2024 9:28amNote Date/TimeOct2023 9:28[place] [address] Gastroenterology PN Signed Patient: Myra Pickard SR MR#: [id number] : 1965 Acct:[id number] Age/Sex: 58 / M Adm Date: 4 Loc: Room: [address] [place] [address] Type: ADM IN Attending Dr: João Powell [...] 1 units TID.WM.HS SATISH Administration Protocol Ipratropium [place] 0.5 mg 03/08/24 20:00 03/12/24 06:05 Ipratropium [place] 0.5 Mg/2.5 Ml Vial.Neb INHALATION 03/08/25 19:59 [...] our nurse practitioner to discuss EGD for abnormalimaging Thank you for this consult, little further to add from a GI standpoint I will sign off at this time. Documented By: Mike Burleson MD 03/12/24925 Signed By: <Electronically signed by Mike Burleson MD> 03/12/24927 [facility] Work Phone: 1(571) 192-384710-07-2024 Progress note Author João Powell [facility] March 11, 2024 1:38pmNote Date/TimeOct2023 1:35pmPro[place] [address] Hospitalist Progress Note Signed Patient: Myra Pickard MR#: [id number] : 1965 Acct:[id number] Age/Sex: 58 / M Adm Date: 4 Loc: 3T Room: [address] [place] [address] Type: ADM IN Attending Dr: João Powell [...] 11:59 Not Given TID.WM.HS SATISH Protocol Ipratropium [place] 0.5 mg 03/08/24 20:00 03/11/24 10:15 Ipratropium [place] 0.5 Mg/2.5 Ml Vial.Neb INHALATION 03/08/25 19:59 [...] obtain MRI abdomen and MRCP -PT tete reccamille appreciated Spoke to his at bedside last afternoon. Will update family today. Time Spent With Patient (min): 45 Documented By: João Powell MD 03/11/24 2003 Signed By: <Electronically signed by João Powell MD> 03/11/24 1927 [facility] Work Phone: 1(435) 666-211310-06-2024 Progress note Author Luther Dozier [facility] March 10, 2024 11:31amNote Date/TimeOct2023 11:31am[address] [address] Neurology Progress Note Signed Patient: Myra Pickard SR MR#: [id number] : 1965 Acct:[id number] Age/Sex: 58 / M Adm Date: 4 Loc: Room: [address] [place] [address] Type: ADM IN Attending Dr: João Powell [...] Therapy Recommendations: PT Recommendations PT Recommended Discharge Halfway Facility,Inpatient Rehab Unit Location PT Recommended Services [...] of breathing. He is alert. Oriented to [facility], March. Speech is fluent and nondysarthric. [...] have total disorientation that was felt to notbe neurological in origin. PLAN: No other recommendations at this time. Documented By: Luther Dozier DO 03/10/24 1126 Signed By: <Electronically signed by Luther Dozier DO> 03/10/24 1131 [facility] Work Phone: 1(561) 850-918310-06-2024 Consult note Author Mike Burleson [facility] March 10, 2024 11:29amNote Date/TimeOct2023 11:29amPro[place] [address] Gastroenterology Consult Note Signed Patient: Myra Pickard SR MR#: [id number] : 1965 Acct:[id number] Age/Sex: 58 / M Adm Date: 4 Loc: Room: [address] [place] [address] Type: ADM IN Attending Dr: João Powell MD Copies to: DO Mike Guzman MD Mohamad Akil, MD~ HPI Data of Consult Date of Consultation: 03/10/24 Requesting Physician: João Powell MD Consult Narrative History of present illness: Mr. Pickard is a 58 year old male who was admitted with altered mental status. Who I am consulted forelevated liver enzymes. The patient is currently denyingany significant right upper quadrant pain. Previous liver studies were normal and on his recent admission his bili has risen to 2.2, elevated GGT, mildly elevated AST and ALT less than 3 times the upper limit of normal. Significantlyelevated alk phos to 426. Denies prior history of liver disease. Denies prior history of gallstones or biliarydisease. States he does have a family history of gallbladder disease on maternal side with multiplepeople needing her gallbladder out in the past. [...] bruising Allergic/Immunologic Allergic/Immunologic: Denies wheezing [facility] Medical History Vitamin D deficiency Spondylosis of [...] mass Atrial fibrillation 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 Anxiety [...] Use Type: None Social History Comments: at [facility] in [place] for rehab Meds Medications and Allergies Allergies [...] sublingual Q5-15M PRN chest pain 07/12/23[History Confirmed 03/08/24] rimegepant 75 mg disintegrating tablet (Nurtec ODT) 75 mg PO DAILY PRN migraine headache 07/12/23 [History Confirmed 03/08/24] valsartan 160 mg-hydrochlorothiazide 12.5 mg tablet 1 tab PO DAILY 07/12/23 [History Confirmed 03/08/24] flash glucose scanning reader ([email or web address] Jigar 2 [place]) #1 ea 12/28/23 [Rx Confirmed 03/08/24] flash [...] HandiHaler) 1 cap inhalationDAILY 03/03/24 [History Confirmed 03/08/24] ferrous sulfate 325 [...] % (Auto) 83.4 Lymph % (Auto) 4.9 Hardeman % (Auto) 10.6 Eos % (Auto) 0.8 Baso % (Auto) 0.3 Nucleat RBC Rel Count 0.2 Neut # (Auto) 11.4 H Lymph # (Auto) 0.7 L Hardeman # (Auto) 1.5 H Eos # (Auto) [...] MPV Neut % (Auto) Lymph % (Auto) Hardeman % (Auto) Eos % (Auto) Baso % (Auto) Nucleat RBC Rel Count Neut # (Auto) Lymph # (Auto) Hardeman # (Auto) Eos # (Auto) Baso # [...] signed by Mike Burleson MD> 03/10/24 1129 [facility] Work Phone: 1(328) 611-709810-06-2024 Progress note Author João Powell [facility] March 10, 2024 10:14amNote Date/TimeOct2023 10:14amVal[place] [id number] Hospitalist Progress Note Signed Patient: Myra Pickard SR MR#: [id number] : 1965 Acct:[id number] Age/Sex: 58 / M Adm Date: 4 Loc: Room: [address] [place] [address] Type: ADM IN Attending Dr: João Powell [...] 03/09/24 22:00 03/09/24 22:01 Duloxetine 30 [address].Dr ZAVALA 03/09/25 21:59 30 mg QHS SATISH Administration [...] IV 03/10/25 09:22 DAILY PRN Hypomagnesemia Ipratropium [place] 0.5 mg 03/08/24 20:00 03/10/24 05:25 Ipratropium [place] 0.5 Mg/2.5 Ml Vial.Neb INHALATION 03/08/25 19:59 [...] signed by João Powell MD> 03/10/24 1014 [facility] Work Phone: 1(720) 791-904510-05-2024 Progress note Author João Powell [facility] March 09, 2024 11:32amNote Date/TimeOct2023 10:57am[place] [address] Hospitalist Progress Note Signed Patient: Myra Pickard SR MR#: [id number] : 1965 Acct:[id number] Age/Sex: 58 / M Adm Date: 4 Loc: 3T Room: [address] [place] [address] Type: ADM IN Attending Dr: João Powell [...] 21:59 5,000 unit Q8HR SATISH Administration Ipratropium [place] 0.5 mg 03/08/24 20:00 03/09/24 09:14 Ipratropium [place] 0.5 Mg/2.5 Ml Vial.Neb INHALATION 03/08/25 19:59 [...] 40 Mg Tablet. PO 03/09/25 08:59 DAILY SATISH Sodium Chloride [...] <Electronically signed by João Powell MD> 03/09/24 113 [facility] Work Phone: 1(796) 151-916510-05-2024 Consult note Author Job James [facility] March 09, 2024 11:12amNote Date/TimeOct2023 11:10amPro[place] [address] Psychiatry Consult Note Signed Patient: Myra Pickard SR MR#: [id number] : 1965 Acct:[id number] Age/Sex: 58 / M Adm Date: 4 Loc: Room: [address] [place] [address] Type : ADM IN Attending Dr: João [...] denied any suicidal thoughts. He reported some vaguehomicidal thoughts towards people that hurt him but does not identify any specific target. He denied any current hallucinations. His main focus right now is his ability to remember things. He does complain of having pain pretty much everywhere in his body including his back, tailbone, head. 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 Anxiety [...] sublingual Q5-15M PRN chest pain 07/12/23[History Confirmed 03/08/24] rimegepant 75 mg disintegrating tablet (Nurtec ODT) 75 mg PO DAILY PRN migraine headache 07/12/23 [History Confirmed 03/08/24] valsartan 160 mg-hydrochlorothiazide 12.5 mg tablet 1 tab PO DAILY 07/12/23 [History Confirmed 03/08/24] flash glucose scanning reader ([employer] Jigar 2 [place]) #1 ea 12/28/23 [Rx Confirmed 03/08/24] flash glucose sensor ([email or web address] Jigar 2 Sensor kit) #1 ea 12/28/23 [...] HandiHaler) 1 cap inhalationDAILY 03/03/24 [History Confirmed 03/08/24] ferrous sulfate 325 [...] Appearance Clear Urine pH 5.0 Ur Specific [place] 1.013 Urine Protein Negative Urine Glucose (UA) >=1000 H Urine Ketones Negative Urine Occult Blood Negative Urine Nitrite Negative Ur Leukocyte Esterase Negative Microbiology Microbiology: Microbiology - Results from entire visit 03/08/24 16:50 Nasopharyngeal Respiratory Panel (PCR) - Final Assessment/Plan (1) Altered mental status: Plan: Encephalopathy is ongoing and patient is disoriented. Hopefully this will improve as medical issuesare addressed Does report some depression and Can use Cymbalta 30 mg daily for depression and pain issues, okay to hold amitriptyline Can rule out NMDA Qualifiers: Altered mental status type: unspecified Qualified Code(s): R41.82 - Altered mental status, unspecified Documented By: Job James MD 03/09/24 1103 Signed By: <Electronically signed by Job James MD> 03/09/24 1112 [facility] Work Phone: 1([phone]) 186-170210-05-2024 Consult note Author Luther Dozier [facility] March 09, 2024 10:59amNote Date/TimeOct2023 9:07[place] [address] Neurology Consult Note Signed Patient: Myra Pickard SR MR#: [id number] : 1965 Acct:[id number] Age/Sex: 58 / M Adm Date: 4 Loc: Room: [address] [place] [address] Type: ADM IN Attending Dr: João Powell MD Copies to: DO Teresa Freeman DO Mohamad Akil, MD~ HPI Consult Date: 03/09/24 Garment Form Assembler: Luther Dozier DO [facility] Medical History Vitamin D deficiency Spondylosis of [...] mass Atrial fibrillation 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 Anxiety [...] Use Type: None Social History Comments: at [facility] in [place] for rehab Meds Medications and Allergies Allergies [...] sublingual Q5-15M PRN chest pain 07/12/23[History Confirmed 03/08/24] rimegepant 75 mg disintegrating tablet (Nurtec ODT) 75 mg PO DAILY PRN migraine headache 07/12/23 [History Confirmed 03/08/24] valsartan 160 mg-hydrochlorothiazide 12.5 mg tablet 1 tab PO DAILY 07/12/23 [History Confirmed 03/08/24] flash glucose scanning reader ([employer] Jigar 2 [place]) #1 ea 12/28/23 [Rx Confirmed 03/08/24] flash glucose sensor ([employer] Jigar 2 Sensor kit) #1 ea 12/28/23 [...] HandiHaler) 1 cap inhalationDAILY 03/03/24 [History Confirmed 03/08/24] ferrous sulfate 325 [...] Marks Jr., D.O.03/08/2024 2:41 PM Dictation Location: [place] [address] Chest X-Ray 03/08/24 17:03 IMPRESSION: No acute process. Impression dictated by: Sudeep Lind M.D.03/08/2024 6:08 PM Dictation Location: [place] [address] Brain MRI 03/08/24 17:48 IMPRESSION: No acute intracranial process. Impression dictated by: Sudeep Lind M.D.03/08/2024 8:10 PM Dictation Location: [place] [address] Assessment/Plan (1) Altered mental status: Qualifiers: Altered mental status type: unspecified Qualified Code(s): R41.82 - Altered mental status, unspecified Plan CONSULT REASON: Sudden AMS, stroke ruled out HPI: 58-year-old man. History that includes coronary artery disease with PCI, peripheral vascular disease, type 2 diabetes, hypertension, heart failure, diabetic neuropathy, status post recent below the knee amputation at [facility]. He had just been here several days prior to this presentation with sy ncope that was probably orthostatic hypotension related to [...] [facility] He said the year was 20. EXAMINATION: Appears anxious. Right below the knee amputation, stapled. Remaining limbs seem well-perfused. No significant edema. Normal work of breathing. He is alert. Claims to not be oriented to self or circumstance of hospital and or thehospital or the year or the month. Attention impaired. He is fixated onhis pain. Speech is monotone but fluent and nondysarthric. Pupils are equal. He claims to be unableto move his eyes left or right, staring [...] tendency to stare at the ceiling. An updatedMRI of his brain is without any acute findings. PLAN: Routine EEG is pending but I suspect will look normal. He just had an EEG a fewdays ago that was normal. I think his mentation changes are functional or psychiatric in nature. Documented By: Luther Dozier DO 03/09/24 0859 Signed By: <Electronically signed by Luther Dozier DO> 03/09/24 9492 [facility] Work Phone: 1(416) 113-250510-05-2024 History and physical note Author João Powell [facility] March 08, 2024 10:05pmNote Date/TimeOct2023 7:19pmPro[place] [address] Hospitalist H&P Signed Patient: yMra iPckard MR#: [id number] : 1965 Acct:[id number] Age/Sex: 58 / M Adm Date: 4 Loc: 3T Room: [address] [place] [address] Type: ADM IN Attending Dr: João Powell [...] hisEF or any recent echo on chart) diabeticneuropathy status post right BKA recently at [facility], here today for altered mental status. [...] fell with what appears like a mechanical fall.After that the patient was acting weird the whole day crying and moaning until the morning after when his tried to wake him up hewas hard to be awake and, then woke up and fell again but she is not sure if he banged his head at the time. Due to the concern of his altered mentation patient was b rought to the hospital. In the hospital patient was noticed to be completely different than when I last saw him 2 days ago where he is lying in bed, fixating his vision upward responsive but has someshakiness in his body and fixating on the same question when asked. He is not aware of his surroundings and is not able to recognize his or daughter. Stroke alert was called in the ED but the CThead/CT a brain and neck were all negative. ED staff contacted [facility] stroke team and patientwas deemed not eligible [facility]. Patient is being [...] 1 was negative. EKG showed no acute ischemicchanges. 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 Anxiety [...] Use Type: None Social History Comments: at [facility] in [place] for rehab Meds Medications and Allergies Allergies [...] sublingual Q5-15M PRN chest pain 07/12/23[History Confirmed 03/08/24] rimegepant 75 mg disintegrating tablet (Nurtec ODT) 75 mg PO DAILY PRN migraine headache 07/12/23 [History Confirmed 03/08/24] valsartan 160 mg-hydrochlorothiazide 12.5 mg tablet 1 tab PO DAILY 07/12/23 [History Confirmed 03/08/24] flash glucose scanning reader ([employer] Jigar 2 [place]) #1 ea 12/28/23 [Rx Confirmed 03/08/24] flash glucose sensor ([email or web address] Jigar 2 Sensor kit) #1 ea 12/28/23 [...] HandiHaler) 1 cap inhalationDAILY 03/03/24 [History Confirmed 03/08/24] ferrous sulfate 325 [...] % (Auto) 13.1 % (.) 03/08/24 14:15 Hardeman % (Auto) 13.2 % (.) 03/08/24 14:15 Eos % (Auto) 3.3 % (.) 03/08/24 14:15 Baso % (Auto) 1.0 % (.) 03/08/24 14:15 Nucleat RBC Rel Count 0.2 /100 WBC (0-0.5) 03/08/24 14:15 Neut # (Auto) 6.2 x10E3/uL (1.8-7.7) 03/08/24 14:15 Lymph # (Auto) 1.2 x10E3/uL (1.00-4.8) 03/08/24 14:15 Hardeman # (Auto) 1.2 x10E3/uL (0.0-0.8) H 03/08/24 [...] pH 5.0 (5.0-9.0) 03/08/24 16:11 Ur Specific [place] 1.013 (1.001-1.030) 03/08/24 16:11 Urine Protein Negative [...] (min): 60 Documented By: João Powell MD 03/08/24 191 Signed By: <Electronically signed by João Powell MD> 03/08/242204 [facility] Work Phone: 1(474) 229-731710-01-2024 Progress note Author Luther Dozier [facility] March 05, 2024 2:28pmNote Date/TimeOct2023 2:22pmPro[place] [address] Neurology Progress Note Signed Patient: Myra Pickard SR MR#: [id number] : 1965 Acct:[id number] Age/Sex: 58 / M Adm Date: 4 Loc: Room: [address] [place] [address] Type: ADM IN Attending Dr: João Powell [...] Therapy Recommendations: OT Recommendations OT Recommended Discharge Halfway Facility Location PT Recommendations PT Recommended Discharge Halfway Facility Location PT Recommended Services at Physical [...] extremity that is nonexistent and cannot be tested,muscle bulk, tone, and strength are normal. No significant tremors at the time of my encounter. Refl exes trace throughout. Light touch is remains intact. [...] held. With his renal function, if he needsto go back on the pregabalin then it should probably be more like 100 mg 3 times daily maximum. 4. No other recommendations at this time from a neurology standpoint; he can have outpatient neuro follow up regarding the neuropathy Documented By: Luther Dozier DO 03/05/24 1420 Signed By: <Electronically signed by Luther Dozier DO> 03/05/24 1428 [facility] Work Phone: 1(487) 624-557710-01-2024 Progress note Author João Powell [facility] March 05, 2024 2:17pmNote Date/TimeOct2023 2:17pmPro[place] [address] Hospitalist Progress Note Signed Patient: Myra Pickard MR#: [id number] : 1965 Acct:[id number] Age/Sex: 58 / M Adm Date: 4 Loc: Room: [address] [place] [address] Type: ADM IN Attending Dr: João Powell [...] I could not feel any collection or swelling,left lower extremity showing signs of neuropathy/claudication with poor hair distribution and faintDP and PT pulses Neuro: Alert and oriented [...] 1,000 Ml IV 03/03/25 17:59 60 mls/hr .[id number] SATISH Administration Ferric Sodium Gluconate 110 mls @ 110 mls/hr 03/05/24 12:00 03/05/24 13:18 Complex 125 mg/ Sodium IV 03/07/24 09:01 110 mls/hr Chloride QAM SATISH Administration Insulin Aspart 0 units 03/04/24 12:00 03/05/24 11:41 Insulin Aspart 300 Units/3 Ml Insuln.Pen SUBCUT 03/04/25 11:59 Not Given TID.WM[facility] Protocol Ipratropium [place] 0.5 mg 03/04/24 09:00 03/05/24 13:59 Ipratropium [place] 0.5 Mg/2.5 Ml Vial.Neb INHALATION 03/04/25 08:59 [...] Also recommend avoiding NSAIDs besides 81 mg aspirinwhich I followed. -No inpatient intervention as per GI, recommended outpatient follow-up -Ferritin is 7, iron is also low I started the patient on IV Venofer for today and tomorrow -Will recheck CBC in a.m. after restarting aspirin, if stable will give him another dose of IV ironand will discharge him -MRI brain did not [...] <Electronically signed by João Powell MD> 03/05/24 1419 [facility] Work Phone: 1(912) 469-683610-01-2024 Consult note Author Mike Burleson [facility] March 05, 2024 1:35pmNote Date/TimeOct2023 9:32[place] [address] Gastroenterology Consult Note Signed Patient: Myra Pickard SR MR#: [id number] : 1965 Acct:[id number] Age/Sex: 58 / M Adm Date: 4 Loc: Room: [address] [place] [address] Type: ADM IN Attending Dr: João Powell [...] not take any NSAIDs besides for an 81mg aspirin. 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 Anxiety [...] sublingual Q5-15M PRN chest pain 07/12/23[History Confirmed 03/03/24] rimegepant 75 mg disintegrating tablet [...] 12/25/23[Rx Confirmed 03/03/24] flash glucose scanning reader ([employer] Jigar 2 [place]) #1 ea 12/28/23 [Rx Confirmed 03/03/24] flash glucose sensor (DoesThatMakeSense.[employer]Style Jigar 2 Sensor kit) #1 ea 12/28/23 [...] HandiHaler) 1 cap inhalationDAILY 03/03/24 [History Confirmed 03/03/24] Exam Physical Exam [...] MPV Neut % (Auto) Lymph % (Auto) [place] % (Auto) Eos % (Auto) Baso % (Auto) Nucleat RBC Rel Count Neut # (Auto) Lymph # (Auto) [place] # (Auto) Eos # (Auto) Baso # [...] Recheck Antibody Screen Negative Crossmatch ([facility]) See Detail 03/04/24 03/04/24 03/04/24 13:07 14:29 16:32 Corrected WBC Uncorrected WBC Count RBC Hgb Hct MCV MCH MCHC RDW Plt Count MPV Neut % (Auto) Lymph % (Auto) [place] % (Auto) Eos % (Auto) Baso % (Auto) Nucleat RBC Rel Count Neut # (Auto) Lymph # (Auto) [place] # (Auto) Eos # (Auto) Baso # [...] O Positive Antibody Screen Crossmatch ([facility]) 03/04/24 03/05/24 03/05/24 20:45 06:11 06:54 Corrected WBC 8.3 Uncorrected WBC Count 8.3 RBC 3.83 L Hgb 8.6 L Hct 26.8 L MCV 70.1 L MCH 22.4 L MCHC 31.9 L RDW 21.4 H Plt Count 361 MPV 7.9 Neut % (Auto) 67.6 Lymph % (Auto) 16.1 [place] % (Auto) 12.4 Eos % (Auto) 2.8 Baso % (Auto) 1.1 Nucleat RBC Rel Count 0.0 Neut # (Auto) 5.6 Lymph # (Auto) 1.3 [place]eman # (Auto) 1.0 H Eos # (Auto) [...] evaluation. -Recommend obtaining prior GI workup from [facility] -I recommend continuing his PPI -Recommend avoiding NSAIDs besides his 81 mg aspirin if for secondary prevention -He can follow-up with our nurse practitioner nonurgently after his current acute presentation has resolved and discharge and obtaining previous GI workup to see if he needs further GI evaluation forhis anemia as this appears chronic andhe is essentially at baseline or he can follow-up with his previous GI team at [facility] Thank you for this consult, little further to add from a GI standpoint. I will peripherally follow pending discharge. Documented By: Mike Burleson MD 03/05/24931 Signed By: <Electronically signed by Mike Burleson MD> 03/05/24 7523 [facility] Work Phone: 1(187) 274-968609-30-2024 Consult note Author Luther Dozier [facility] March 04, 2024 12:57pmNote Date/TimeSept2023 12:57pmPro[place] [address] Neurology Consult Note Signed Patient: Myra Pickard SR MR#: [id number] : 1965 Acct:[id number] Age/Sex: 58 / M Adm Date: 4 Loc: 3T Room: [address] [place] [address] Type: ADM INOo Attending Dr: João Powell MD Copies to: DO Teresa Freeman DO Mohamad Akil, MD~ HPI Consult Date: 03/04/24 Garment Form Assembler: Luther Dozier DO [facility] Medical History Vitamin D deficiency Spondylosis of [...] mass Atrial fibrillation 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 Moderate constipation. Impression dictated by: Sudeep Lind M.D.03/03/2024 3:01 PM Dictation [facility] 03/03/24 16:59 IMPRESSION: No acute findings. Impression dictated by: Sudeep Lind M.D.03/03/2024 5:50 PM Dictation Location: [facility] Assessment/Plan (1) Syncope: Qualifiers: Syncope type: unspecified Qualified Code(s): R55 - Syncope and collapse Plan CONSULT REASON: Syncope HPI: 58-year-old man. Significant bodily vasculopathy, probably secondary to diabetes. History of coronary artery disease requiring percutaneous intervention, peripheral vascular disease, type 2 diabetes,hypertension, severediabetic polyneuropathy, nonhealing right lower extremity wounds now status postright below the knee amputation about 3 weeks ago at [facility]. He was feeling lightheaded everytime he was upright, transferring onto his electric [...] hands would be shaky with these episodes. Yamil have completely syncopized once. In the emergency [...] times daily, clopidogrel 75 mg daily, metoprolol, r opinirole1 mg 3 times daily, baclofen, furosemide, oxycodone, [...] extremity that is nonexistent and cannot be tested,muscle bulk, tone, and strength are normal. No significant tremors at the time of my encounter. Refl exes trace throughout. Light touch is remains intact. [...] hemoglobin only 7.4. Do not suspect a cer ebrovascular syndrome. Do not suspect seizure. I did not notice any significant tremors at the time of my encounter. He might have orthostatic tremulousness. And being on more pregabalin then your kidneys can handle can make a person have tremorsor other abnormal movements. PLAN: 1. Looks like tamsulosin is currently held. I would go without this one if possible. 2. Furosemide is currently held. Metoprolol appears to be held as well. 3. The home pregabalin 200 mg 3 times daily is currently held. With his renal function, if he needsto go back on the pregabalin then it should probably be more like 100 mg 3 times daily maximum. 4. Routine EEG is pending 5. MRI brain with MRA head pending 6. Carotid ultrasound studies pending 7. Transthoracic echocardiogram pending Documented By: Luther Dozier DO 03/04/24 1240 Signed By: <Electronically signed by Luther Dozier DO> 03/04/24 1257 [facility] Work Phone: 1(944) 694-412209-30-2024 Progress note Author João Powell [facility] March 04, 2024 11:53amNote Date/TimeSept2023 11:46[place] [id number] Hospitalist Progress Note Signed Patient: Myra Pickard SR MR#: [id number] : 1965 Acct:[id number] Age/Sex: 58 / M Adm Date: 4 Loc: 3T Room: [address] [place] [address] Type: ADM INOo Attending Dr: João Powell [...] I could not feel any collection or swelling,left lower extremity showing signs of neuropathy/claudication with poor hair distribution and faintDP and PT pulses Neuro: Alert and oriented [...] 1,000 Ml IV 03/03/25 17:59 60 mls/hr .[id number] SATISH Administration Sodium Chloride 500 mls @ 20 mls/hr 03/04/24 09:29 0.9 % Sodium Chloride IV 03/05/24 09:28 PROTOCOL PRN BLOOD TRANSFUSION Ipratropium [place] 0.5 mg 03/04/24 09:00 03/04/24 10:47 Ipratropium [place] 0.5 Mg/2.5 Ml Vial.Neb INHALATION 03/04/25 08:59 [...] signed by João Powell MD> 03/04/24 1153 [facility] Work Phone: 1(566) 865-737709-30-2024 History and physical note Author João Powell [facility] March 03, 2024 10:48pmNote Date/TimeSeptember 2023 5:55pmValerie [place] [id number] Hospitalist H&P Signed Patient: Myra Pickard SR MR#: [id number] : 1965 Acct:[id number] Age/Sex: 58 / M Adm Date: 4 Loc: 3T Room: 6B3268-2 Type: ADM INOo Attending Dr: João Powell MD Copies to: DO João Guzman MD~ HPI DATE OF EXAMINATION: 03/03/24 CHIEF COMPLAINT: passing out HISTORY OF PRESENT ILLNESS: Patient is a 58-year-old male with past medical's of coronary disease and PCI, PVD, type 2 diabetes, HTN, Heart failure as per the chart (could not specify hisEF or any recent echo on chart) diabeticneuropathy status post right BKA recently at [facility]. He presents today with episodes of [...] patient blood pressure was in the 70s (systolic) , and his sugar was low however did [...] 1 L bolus of NS. Hewas not tachycardic.His CBC showed hemoglobin 7.8 which is a [...] noted below or in HPI [facility] Medical History Vitamin D deficiency Spondylosis of [...] mass Atrial fibrillation 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 Anxiety [...] sublingual Q5-15M PRN chest pain 07/12/23[History Confirmed 03/03/24] rimegepant 75 mg disintegrating tablet [...] 12/25/23[Rx Confirmed 03/03/24] flash glucose scanning reader ([employer] Jigar 2 [place]) #1 ea 12/28/23 [Rx Confirmed 03/03/24] flash glucose sensor ([employer] Jigar 2 Sensor kit) #1 ea 12/28/23 [...] HandiHaler) 1 cap inhalationDAILY 03/03/24 [History Confirmed 03/03/24] Exam Physical Exam [...] I could not feel any collection or swelling,left lower extremity showing signs of neuropathy/claudication with poor hair distribution and faintDP and PT pulses Neuro: Alert and oriented [...] % (Auto) 18.2 % (.) 03/03/24 14:00 [place] % (Auto) 11.3 % (.) 03/03/24 14:00 Eos % (Auto) 3.2 % (.) 03/03/24 14:00 Baso % (Auto) 1.7 % (.) 03/03/24 14:00 Nucleat RBC Rel Count 0.2 /100 WBC (0-0.5) 03/03/24 14:00 Neut # (Auto) 4.7 x10E3/uL (1.8-7.7) 03/03/24 14:00 Lymph # (Auto) 1.3 x10E3/uL (1.00-4.8) 03/03/24 14:00 [place] # (Auto) 0.8 x10E3/uL (0.0-0.8) 03/03/24 14:00 [...] pH 5.0 (5.0-9.0) 03/03/24 14:35 Ur Specific [place] 1.009 (1.001-1.030) 03/03/24 14:35 Urine Protein Negative [...] <Electronically signed by João Powell MD> 03/03/24 9245 [facility] Work Phone: 1(380) 863-376409-26-2024 History of Present illness Narrative* Mike Montes [...] up Removal of toshia next week at [facility] and sizing for prosthesis.. [facility] History of Present illness Narrative* Guero Tam, DO - 02/28/2024 2:51 PM EDT Patient Name: Myra Pickard Date of : 1965 Date of Service: 02/28/2024 Facility: [facility] Type of Visit: Skilled Visit Subjective Myra Pickard is a 58 y.o. male [facility]. Myra is in [...] polyneuropathy associated with type 2 diabetes mellitus ([facility]) 4. Other abnormalities of gait and mobility 5. Muscle spasm I'm going to add baclofen 10 mg Q6hrs prn spasm. D/C januvia since he is on Trulicity. Continue therapy and other orders as directed. All medications reviewed and are medically necessary. ELECTRONICALLY SIGNED BY: Guero Tam DO documented in [facility]09-[facility] History of Present illness Narrative* Guero Tam [...] and grafts Fibromyalgia Atherosclerotic heart disease of telida coronary artery without angina pectoris GERD glaucoma Gout Hyperlipidemia Essential hypertension Migraine Polyneuropathy Obstructive and reflux uropathy RLS Osteoarthritis Dorsalgia Benign prostatic hyperplasia with lower urinary tract symptoms Bilateral carpal tunnel syndrome Heart failure unspecified Nicotine dependence of cigarettes Plan: Admit to [facility] for therapies. continue medications. Full code Renew oxycodone 10 mg Q6hrs prn Good rehab potential. Discharge to home when able to safely discharge documented in [facility]09[facility] Hospital Discharge instructions Patient Education 02/21/2024 14:36:02 [...] to cope with stress. General instructions Take [id number] and prescription medicines only as told by [...] department or: Call your local emergency services (911 in the [place] Call a suicide crisis helpline, such as the National Suicide Prevention Lifeline at or 407 in the [place] This is open 24 hours a day in the [place] Text the Crisis Text Line at 688653 (in the [place] Summary It will take [...] provider. Document Revised: 12/15/2021 Document Reviewed: 10/07/2021 [employer] Patient Education 2023 [employer]. Follow Up Care 02/09/2024 10:35:38 With:TERESA LYNCH DO, FAM Address: [address] [place] [address]- When: Unknown With:Mike Montes MD Address: [address] [place] [address]- When:2 weeks Comments:Call for followup appointment [facility] 09-18-2024 NoteDischarge Summary Admission and [...] With When Contact Information TERESA LYNCH DO, [facility] [address] [facility] [place] [address]- Additional Instructions: Simon HERRERA, Mike Weathers Within 2 weeks [address] [place] [address]- Additional Instructions: Call for followup appointment Patient Education Living With [facility]putationOhiohealth [facility]ady [facility] HospitalComment on above:Result Comment: Electronically Signed By: Raulito Gilliland DO\.br\Date and Time Signed: 02/21/24 15:01 [id number] Evaluation + Plan noteExtracted from:Title: Discharge NoteAuthor:Raulito Gilliland DODate:02/21/24 Discharge To, Anticipated II - Acute Rehabilitation [...] With When Contact Information TERESA LYNCH DO, [facility] [address] [place] [address]- Additional Instructions: Simon HERRERA, Mike FMary Within 2 weeks [address] [place] [address]- Additional Instructions: Call for followup appointment [facility] Extracted from:Title:APSO NoteAuthor:Raulito Gilliland DODate:02/21/24 Patient is a 58-year-old mal e with past medical history of NE/CAD, heart failure, GERD, HTN, COPD, insulin-dependent type [...] daily to aid in wound healing Ordered: [facility] Hospital Care/Day Straight Fwd 25 Minutes 74713 2. Leukocytosis (D72.829: Elevated white blood cell [...] artery disease (I25.10: Atherosclerotic heart disease of telida coronary artery withoutangina pectoris) Aspirin, atorvastatin 80 mg p.o. daily, Plavix Metoprolol, isosorbide mononitrate, Lasix 9. Tobacco abuse (Z72.0: Tobacco use) Counseled on cessation. Nicotine patch. Orders: Capillary Glucose POC CBC w/ Auto Diff Change Attending Extracted from:Title:APSO NoteAuthor:Ben Corrigan III, DODate:02/20/24 Patient is a 58-year-old mal e with past medical history of NE/CAD, heart failure, GERD, HTN, COPD, insulin-dependent type [...] Auto Diff CBC w/ Auto Diff eGFR [facility] Hospital Care/Day Moderate 35 Minutes 73008 2. Leukocytosis (D72.829: Elevated white blood cell count, unspecified) Likely reactive with nausea and vomiting overnight. Will continue to monitor closely. No signs of infection of surgical wound. Follow-up a.m. labs. 3. Essential hypertension (I10: Essential (primary) hypertension) Metoprolol, isosorbide mononitrate, Lasix. Well-controlled. Ordered: [facility] Hospital Care/Day Moderate 35 Minutes 05793 4. Hyperlipidemia (E78.5: Hyperlipidemia, unspecified) Statin Ordered: [facility] Hospital Care/Day Moderate 35 Minutes 95136 5. Anemia (D64.9: Anemia, unspecified) Acute on chronic. Stable postoperatively. Will continue to monitor closely Ordered: Basic Metabolic Panel CBC w/ Auto Diff [facility] Hospital Care/Day Moderate 35 Minutes 60189 6. 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 (E11.42: Type 2 diabetes mellitus with diabetic polyneuropathy) Glimepiride 2 mg p.o. twice daily, glargine 35 units nightly, lispro 5 units with meals, BGT ACHS, sliding scale insulin as needed with meals Poorly controlled. Increased glargine to 35 units nightly om 02/18 from 30 units nightly. Ordered: [facility] Hospital Care/Day Moderate 35 Minutes 87786 7. Stage 3 chronic kidney disease (N18.30: Chronic kidney disease, stage 3 unspecified) Creatinine 1.8. Baseline 1.5-1.6. Monitor closely. Ordered: Basic Metabolic Panel CBC w/ Auto Diff eGFR [facility] Hospital Care/Day Moderate 35 Minutes 55551 8. Coronary artery disease (I25.10: Atherosclerotic heart disease of telida coronary artery withoutangina pectoris) Aspirin, atorvastatin 80 mg p.o. daily, Plavix Metoprolol, isosorbide mononitrate, Lasix Ordered: [facility] Hospital Care/Day Moderate 35 Minutes 64252 9. Tobacco abuse (Z72.0: Tobacco use) Counseled on cessation. Nicotine patch. Orders: oxycodone, 10 mg = 2 tab(s), Tab, Oral, q4hr PRN Pain for 5 day(s), Stop date 02/25/24 19:00:00 EDT, Routine, Start date 02/20/24 19:01:00 EDT, 02/20/24 19:01:00 EDT Extracted from:Title:APSO NoteAuthor:Ben Corrigan III, DO.Date:02/19/24 Patient is a 58-year-old mal e with past medical history of NE/CAD, heart failure, GERD, HTN, COPD, insulin-dependent type [...] Basic Metabolic Panel CBC w/ Auto Diff [facility] Hospital Care/Day Moderate 35 Minutes 31397 2. Essential hypertension (I10: Essential (primary) hypertension) Metoprolol, isosorbide mononitrate, Lasix. Well-controlled. Ordered: [facility] Hospital Care/Day Moderate 35 Minutes 79606 3. Hyperlipidemia (E78.5: Hyperlipidemia, unspecified) Statin Ordered: [facility] Hospital Care/Day Moderate 35 Minutes 31060 4. Anemia (D64.9: Anemia, unspecified) Acute on chronic. Stable postoperatively. Will continue to monitor closely Ordered: CBC w/ Auto Diff [facility] Hospital Care/Day Moderate 35 Minutes 96917 5. 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 (E11.42: Type 2 diabetes mellitus with diabetic polyneuropathy) Glimepiride 2 mg p.o. twice daily, glargine 30 units nightly, lispro 5 units with meals, BGT ACHS, sliding scale insulin as needed with meals Poorly controlled. Will increase glargine to 35 units nightly. Ordered: [facility] Hospital Care/Day Moderate 35 Minutes 17796 6. Stage 3 chronic kidney disease (N18.30: Chronic kidney disease, stage 3 unspecified) Creatinine 1.7. Baseline 1.5-1.6. Monitor closely. Ordered: Basic Metabolic Panel [facility] Hospital Care/Day Moderate 35 Minutes 92555 7. Coronary artery disease (I25.10: Atherosclerotic heart disease of telida coronary artery withoutangina pectoris) Aspirin, atorvastatin 80 mg p.o. daily, [...] 8 hours, regular diet, full code Extracted from:Title:APSO NoteAuthor:Marisela HERRERA, Elan RobbinsDate:02/18/24 Goal: 1. monitor BP 2. Monitor Hgb [...] artery disease (I25.10: Atherosclerotic heart disease of telida coronary artery withoutangina pectoris) continue plavix as ordered 8. Tobacco abuse (Z72.0: Tobacco use) nicotine patch Orders: insulin lispro, 5 unit(s) = 0.05 mL, Injection-Insulin, SubCutaneous, TIDWM, Routine, Start date 02/18/24 12:00:00 EDT Basic Metabolic Panel CBC w/ Auto Diff Extracted from:Title:APSO NoteAuthor:Marisela HERRERA, Elan RobbinsDate:02/17/24 Goal: 1. Aggressive bowel regimen as ordered 2. Monitor hgb 3. Monitor BGL, better controlled but still elevated. DVT prophylaxis with heparin if tolerated. 1. Hx of right BKA (Z89.511: Acquired absence of right leg below knee) Pain control PT/OT discharge to rehab Ordered: [facility] Hospital Care/Day High 50 Minutes 45930 [facility] Hospital Care/Day Moderate 35 Minutes 65995 2. Essential hypertension (I10: Essential (primary) hypertension) good control continue to hold losartan continue lasix and imdur monitor BP Ordered: [facility] Hospital Care/Day High 50 Minutes 83071 [facility] Hospital Care/Day Moderate 35 Minutes 60883 3. Hyperlipidemia (E78.5: Hyperlipidemia, unspecified) continue statin Ordered: [facility] Hospital Care/Day High 50 Minutes 04196 [facility] Hospital Care/Day Moderate 35 Minutes 07336 4. Anemia (D64.9: Anemia, unspecified) Acute Blood loss anemia, possibly post surgical loss hgb has remained stable post transfusion continue to monitor CBC today Ordered: [facility] Hospital Care/Day High 50 Minutes 00536 [facility] Hospital Care/Day Moderate 35 Minutes 26282 5. 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 (E11.42: Type 2 diabetes mellitus with diabetic polyneuropathy) BGL is better controlled today compared to yesterday continue current insulin dose with sliding scale If BGl continues to be elevated during the day today, will start meal time scheduled coverage Ordered: [facility] Hospital Care/Day High 50 Minutes 94935 [facility] Care/Day Moderate 35 Minutes 38226 6. Stage 3 chronic kidney disease (N18.30: Chronic kidney disease, stage 3 unspecified) Overall renal function is stable continue to monitor Ordered: [facility] Hospital Care/Day High 50 Minutes 35701 [facility] Care/Day Moderate 35 Minutes 87718 7. Coronary artery disease (I25.10: Atherosclerotic heart disease of telida coronary artery withoutangina pectoris) On home medication/ continue plavix and statin Ordered: [facility] Hospital Care/Day High 50 Minutes 71368 [facility] Care/Day Moderate 35 Minutes 73758 8. Tobacco abuse (Z72.0: Tobacco use) nicotine patch Ordered: [facility] Care/Day High 50 Minutes 78514 [facility] Care/Day Moderate 35 Minutes 80151 Orders: acetaminophen-oxycodone, 2 tab(s), Tab, Oral, p0el-DF, Routine, Start date 02/16/24 14:00:00 EDT heparin, [...] Metabolic Panel CBC w/ Auto Diff Extracted from:Title:APSO NoteAuthor:Elan Antonio MDDate:02/16/24 Goals: 1. 2 time dose of lactulose [...] [facility] Hospital Care/Day High 50 Minutes 27822 [facility] Hospital Care/Day High 50 Minutes 21601 2. Essential hypertension (I10: Essential (primary) hypertension) had to held lasix this morning due to low BP continue other home meds, Imdur, Ordered: Basic Metabolic Panel CBC w/ Auto Diff eGFR Path. Review [facility] Hospital Care/Day High 50 Minutes 01961 [facility] Hospital Care/Day High 50 Minutes 78086 3. Hyperlipidemia (E78.5: Hyperlipidemia, unspecified) continue statin Ordered: Basic Metabolic Panel CBC w/ Auto Diff eGFR Path. Review [facility] Hospital Care/Day High 50 Minutes 66894 [facility] Care/Day High 50 Minutes 24300 4. Anemia (D64.9: Anemia, unspecified) hgb is stable post transfusion at 7.6 since patient is stable, will start heparin prophylaxis Ordered: Basic Metabolic Panel CBC w/ Auto Diff eGFR Path. Review [facility] Hospital Care/Day High 50 Minutes 76698 [facility] Hospital Care/Day High 50 Minutes 24695 5. 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 Review [facility] Hospital Care/Day High 50 Minutes 96841 [facility] Care/Day High 50 Minutes 05307 6. Stage 3 chronic kidney disease (N18.30: Chronic kidney disease, stage 3 unspecified) stable continue to monitor Ordered: Basic Metabolic Panel CBC w/ Auto Diff eGFR Path. Review [facility] Hospital Care/Day High 50 Minutes 41518 [facility] Hospital Care/Day High 50 Minutes 32649 7. Coronary artery disease (I25.10: Atherosclerotic heart disease of telida coronary artery withoutangina pectoris) overall stable continue plavix Ordered: Basic Metabolic Panel CBC w/ Auto Diff eGFR Path. Review [facility] Hospital Care/Day High 50 Minutes 23510 [facility] Care/Day High 50 Minutes 01405 8. Tobacco abuse (Z72.0: Tobacco use) nicotine patch Ordered: Basic Metabolic Panel CBC w/ Auto Diff eGFR Path. Review [facility] Hospital Care/Day High 50 Minutes 25322 [facility] Care/Day High 50 Minutes 51666 Orders: acetaminophen-oxycodone, 2 tab(s), Tab, Oral, s1gb-OH, Routine, Start date 02/16/24 14:00:00 EDT heparin, [...] EDT, Start date 02/15/24 15:00:00 EDT Extracted from:Title:APSO NoteAuthor:Elan Antonio MDDate:02/15/24 Goal: 1. BGL control 2. Wound team or vascular to come look at stump 3. Pain control. will start spacing out frequency of dilaudid 1. Hx of right BKA (Z89.511: Acquired absence of right leg below knee) pain control PT/OT wound care team or vascular to reevaluate stump/dressing Ordered: Basic Metabolic Panel CBC w/ Auto Diff [facility] High 50 Minutes 43085 2. Essential hypertension (I10: Essential (primary) hypertension) good control continue current medications Ordered: Basic Metabolic Panel CBC w/ Auto Diff [facility] Care/Day High 50 Minutes 03235 3. Hyperlipidemia (E78.5: Hyperlipidemia, unspecified) statin Ordered: Basic Metabolic Panel CBC w/ Auto Diff [facility] Care/Day High 50 Minutes 74884 4. Anemia (D64.9: Anemia, unspecified) hgb has remained stable since transfusion hgb is 7.7. i thought it should be higher than than considering that he received 2 units of PRBC. Ordered: Basic Metabolic Panel CBC w/ Auto Diff [facility]/Day High 50 Minutes 64827 5. 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 (E11.42: Type 2 diabetes mellitus with diabetic polyneuropathy) BGL is poorly controlled diabetic diet increase lantus to 25 units QHS accucheck achs Ordered: Basic Metabolic Panel CBC w/ Auto Diff [facility]/Day High 50 Minutes 07682 6. Stage 3 chronic kidney disease (N18.30: Chronic kidney disease, stage 3 unspecified) overall stable, but noted mild increase in creatinine today contiue to monitor Ordered: Basic Metabolic Panel CBC w/ Auto Diff [facility] Care/Day High 50 Minutes 11575 7. Coronary artery disease (I25.10: Atherosclerotic heart disease of telida coronary artery withoutangina pectoris) Plavix for secondary prophylaxis Ordered: Basic Metabolic Panel CBC w/ Auto Diff [facility] Care/Day High 50 Minutes 44866 8. Tobacco abuse (Z72.0: Tobacco use) nicotine patch Ordered: Basic Metabolic Panel CBC w/ Auto Diff [facility] Care/Day High 50 Minutes 70547 Orders: insulin glargine, 25 unit(s), Injection-Insulin, SubCutaneous, [...] Plan of Care and Implement Plan Extracted from:Title:APSO NoteAuthor:Marisela HERRERA, Elan ColmenaresMaryDate:02/14/24 1. 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 due to poor pain control, I discontinued IV morphine and switched to IV dilaudid PT/OT appreciate Vascular team recommendations Ordered: [facility] Hospital Care/Day High 50 Minutes 20812 2. Essential hypertension (I10: Essential (primary) hypertension) Better compared to yesterday. continue current management currently on lasix, losartan, metoprolol and imdur. seems to be too much BP meds since BP is about 120s. continue to monitor BP. Ordered: [facility] Hospital Care/Day High 50 Minutes 52817 3. Hyperlipidemia (E78.5: Hyperlipidemia, unspecified) continue statin Ordered: [facility] Hospital Care/Day High 50 Minutes 00608 4. Anemia (D64.9: Anemia, unspecified) Acute on chronic anemia due to surgical intervention hgb has remained stable since transfusion continue to monitor h and h Ordered: [facility] Hospital Care/Day High 50 Minutes 27613 5. 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 continue lantus at current dose continue Jardiance and Glimipiride Ordered: [facility] Hospital Care/Day High 50 Minutes 07004 6. Stage 3 chronic kidney disease (N18.30: Chronic kidney disease, stage 3 unspecified) possible due to complication of DM. monitor renal function. creatinine at baseline of 1.9. needs out patient follow up for Nephro recommendation 7. Coronary artery disease (I25.10: Atherosclerotic heart disease of telida coronary artery withoutangina pectoris) continue plavix and asa as ordered Orders: acetaminophen-oxycodone, 1 tab(s), Tab, Oral, [id number]-NR, Routine, Start date 02/13/24 13:00:00 EDT furosemide, [...] Implement Plan Referral to Resource Center Extracted from:Title:APSO NoteAuthor:Marisela HERRERA, Elan RobbinsDate:02/13/24 1. 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 appreciate additional recommendation from Vascular team Ordered: [facility] Hospital Care/Day High 75 Minutes 79709 2. Essential hypertension (I10: Essential (primary) hypertension) BP on the low side today unsure if this is related to ?Anemia hold Losartan monitor BP, if still low, will bolus. Ordered: [facility] Hospital Care/Day High 75 Minutes 14999 3. Hyperlipidemia (E78.5: Hyperlipidemia, unspecified) statin Ordered: Initial Hospital Care/Day High 75 Minutes 13053 4. Anemia (D64.9: Anemia, unspecified) Acute on chronic anemia. acute loss due to post op blood loss transfused 2 units of PRBC today. continue to monitor will hold asa and plavix for now and resume when Anemia improves or stabilized Also hold off on anticoagulation until anemia stabilizes can do scd on left leg Ordered: [facility] Hospital Care/Day High 75 Minutes 21793 5. 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 (E11.42: Type 2 diabetes mellitus with diabetic polyneuropathy) poorly controlled diabetic diet continue glimipiride, lantus and januvia Monitor BGL and treate with sliding scale as needed Ordered: Initial Hospital Care/Day High 75 Minutes [id number] Orders: acetaminophen-oxycodone, 1 tab(s), Tab, Oral, [id number], Routine, Start date 02/13/24 13:00:00 EDT amitriptyline, [...] Plan of Care and Implement Plan Extracted from:Title:Admission H & PAuthor:Elan Antonio MDDate:02/12/24 1. Hx of right BKA (Z89.511: Acquired [...] Start date 02/13/24 9:00:00 EDT, 02/11/2418:00:00 EDT famotidine, 40 mg = 2 tab(s), [...] Tab-ER, Oral, Daily, Routine, Start date 02/13/24 9:00:00EDT, 02/12/24 18:01:00 EDT losartan, 100 mg = 2 tab(s), Tab, Oral, Daily, Routine, Start date 02/13/24 9:00:00 EDT, 02/12/24 18:01:00 EDT metoprolol, 100 mg = 1 tab(s), Tab, Oral, Daily, Routine, Start date 02/13/24 9:00:00 EDT, 02/11/2418:02:00 EDT ranolazine, 1,000 mg = 2 tab(s), [...] Responsive Patient Hypoglycemia Protocol Unresponsive Patient Extracted from:Title:ANES Post Op - GeneralAuthor:MD Juanito, Laura FDate: 02/12/24 Plan Transfer/Discharge: Transfer/Discharge Discharge when meets criteria ( To home ). Extracted from:Title:ANES Pre Op - Adult GeneralAuthor:MD Juanito, Laura Date:02/12/24 Plan [place] [employer] (ASA) physical status classification: [...] US PVR Lower EXT Complete Bilat 11/20/23 [facility] 09-18-2024 NotePeripheral smear evaluation:[facility] HospitalComment on above:Performed By: #### [id number] #### [facility] [address], [place] [phone] NoteProgress Note-Physician Assessment/Plan Patient is a 58-year-old male with past medical history of NE/CAD, heart failure, GERD, HTN, COPD, insulin-dependent type [...] daily to aid in wound healing Ordered: [facility] Hospital Care/Day Straight Fwd 25 Minutes 07565 2. Leukocytosis (D72.829: Elevated white blood cell [...] artery disease (I25.10: Atherosclerotic heart disease of telida coronary artery withoutangina pectoris) ? Aspirin, atorvastatin [...] Lymph Auto: 12.4 % Low (02/21/24 06:02:00) Hardeman Auto: 8.7 % (02/21/24 06:02:00) Eos Auto: 3.6 % (02/21/24 06:02:00) Basophil Auto: 0.7 % (02/21/24 06:02:00) Neutro Absolute: 9.3 E9/L High (02/21/24 06:02:00) Lymph Absolute: 1.5 E9/L (02/21/24 06:02:00) Hardeman Absolute: 1.1 E9/L High (02/21/24 06:02:00) Eos [...] (02/21/24 10:49: (more content not included)... [facility] HospitalComment on above:Result Comment: Electronically Signed By: Raulito Gilliland DO\.br\Date and Time Signed: 02/21/24 10:56 EDT 02-20-2024 NoteProgress Note-Physician Assessment/Plan Patient is a 58-year-old male with past medical history of NE/CAD, heart failure, GERD, HTN, COPD, insulin-dependent type [...] Auto Diff CBC w/ Auto Diff eGFR [facility] Hospital Care/Day Moderate 35 Minutes 94651 2. Leukocytosis (D72.829: Elevated white blood cell count, unspecified) ? Likely reactive with nausea and vomiting overnight. Will continue to monitor closely. No signs ofinfection of surgical wound. Follow-up a.m. labs. 3. Essential hypertension (I10: Essential (primary) hypertension) ? Metoprolol, isosorbide mononitrate, Lasix. Well-controlled. Ordered: [facility] Hospital Care/Day Moderate 35 Minutes 61986 4. Hyperlipidemia (E78.5: Hyperlipidemia, unspecified) ? Statin Ordered: [facility] Hospital Care/Day Moderate 35 Minutes 82294 5. Anemia (D64.9: Anemia, unspecified) ? Acute on chronic. Stable postoperatively. Will continue to monitor closely Ordered: Basic Metabolic Panel CBC w/ Auto Diff [facility] Hospital Care/Day Moderate 35 Minutes 89729 6. 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 Glimepiride 2 mg p.o. twice daily, glargine 35 units nightly, lispro 5 units with meals, BGT ACHS, sliding scale insulin as needed with meals ?Poorly controlled. Increased glargine to 35 units nightly om 02/18 from 30 units nightly. Ordered: [facility] Hospital Care/Day Moderate 35 Minutes 04218 7. Stage 3 chronic kidney disease (N18.30: Chronic kidney disease, stage 3 unspecified) ? Creatinine 1.8. Baseline 1.5-1.6. Monitor closely. Ordered: Basic Metabolic Panel CBC w/ Auto Diff eGFR [facility] Hospital Care/Day Moderate 35 Minutes 34754 8. Coronary artery disease (I25.10: Atherosclerotic heart disease of telida coronary artery withoutangina pectoris) ? Aspirin, atorvastatin 80 mg p.o. daily, Plavix ? Metoprolol, isosorbide mononitrate, Lasix Ordered: [facility] Care/Day Moderate 35 Minutes 77334 9. Tobacco abuse (Z72.0: Tobacco use) ? [...] indicated time period. (more content not included)...[facility] HospitalComment on above:Result Comment: Electronically Signed By: Ben Corrigan III, DO.br\Date and Time Signed: 02/20/24 19:09 [id number] NoteProgress Note-Physician Assessment/Plan Patient is a 58-year-old male with past medical history of NE/CAD, heart failure, GERD, HTN, COPD, insulin-dependent type [...] Diff [facility] Hospital Care/Day Moderate 35 Minutes 17247 2. Essential hypertension (I10: Essential (primary) hypertension) ? Metoprolol, isosorbide mononitrate, Lasix. Well-controlled. Ordered: [facility] Hospital Care/Day Moderate 35 Minutes 84370 3. Hyperlipidemia (E78.5: Hyperlipidemia, unspecified) ? Statin Ordered: [facility] Care/Day Moderate 35 Minutes 44811 4. Anemia (D64.9: Anemia, unspecified) ? Acute on chronic. Stable postoperatively. Will continue to monitor closely Ordered: CBC w/ Auto Diff [facility] Hospital Care/Day Moderate 35 Minutes 11780 5. 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 Glimepiride 2 mg p.o. twice daily, glargine 30 units nightly, lispro 5 units with meals, BGT ACHS, sliding scale insulin as needed with meals ?Poorly controlled. Will increase glargine to 35 units nightly. Ordered: [facility] Hospital Care/Day Moderate 35 Minutes 50723 6. Stage 3 chronic kidney disease (N18.30: Chronic kidney disease, stage 3 unspecified) ? Creatinine 1.7. Baseline 1.5-1.6. Monitor closely. Ordered: Basic Metabolic Panel [facility] Care/Day Moderate 35 Minutes 95923 7. Coronary artery disease (I25.10: Atherosclerotic heart disease of telida coronary artery withoutangina pectoris) ? Aspirin, atorvastatin [...] General: alert, no (more content not included)...[facility] Comment on above:Result Comment: Electronically Signed By: Ben Corrigan III, DO\.br\Date and Time Signed: 02/19/24 17:00 [id number] NoteProgress Note-Physician Patient: MYRA PICKARD SR Age: 58 years Sex: Male : 1965 Associated Diagnoses: None Author: MD Solomon Ahmad F Postoperative Information Postoperative disposition: Postoperative disposition: To PACU. Optimetrix number: Optimetrix number [id number]. Anesthetic utilized: General. Health Status Allergies: Allergic [...] when meets criteria ( To home ).[facility] HospitalComment on above:Result Comment: Electronically Signed [...] mg oral tablet: 2 tab(s), Tab, Oral, [id number], Routine, Start date 02/16/24 14:00:00 EDT Plavix [...] Oral, B (more content not included)... [facility] HospitalComment on above:Result Comment: Electronically Signed [...] artery disease (I25.10: Atherosclerotic heart disease of telida coronary artery withoutangina pectoris) continue plavix as ordered 8. Tobacco abuse (Z72.0: Tobacco use) nicotine patch Orders: insulin lispro, 5 unit(s) = 0.05 mL, Injection-Insulin, SubCutaneous, TIDWM, Routine, Start date 02/18/24 12:00:00 EDT Basic Metabolic Panel CBC w/ Auto Diff Subjective Mr. pikcard reports that he is doing well. He [...] mg/dL High (02/18/24 11:32:00) POC Device SN: [id number] (02/18/24 11:32:00) POC User ID: [id number] (02/18/24 11:32:00) POC Username: RAJESH OSEGUERA (02/18/24 11:32:00) Problem List/Past Medical History Ongoing Arthritis Asthma BPH with obstruction/lower urinary tract symptoms COPD type A Fibromyalgia Gross hematuria Head ache Heart attack Heart disease Heart murmur Hyperlipidemia Orchitis Restless leg Smoker Urinary retention Historical CHF (congestive heart failure) GERD [Gastroesophageal reflux disease] HTN [Hypertension] NE (myocardial infarction) NIDDM Medications Inpatient acetaminophen 325 [...] mg-325 mg oral tablet, 2 tab(s), Oral, [id number]-JX Plavix 75 mg Tab, 75 mg= 1 tab(s), Oral, Daily polyethylene glycol 335 (more content not included)...[facility] HospitalComment on above:Result Comment: Electronically Signed By: Marisela HERRERA, Elan Guzman\Date and Time Signed: 02/18/24 13:45 [id number] NoteProgress Note-Physician Assessment/Plan Goal: 1. Aggressive bowel regimen as ordered 2. Monitor hgb 3. Monitor BGL, better controlled but still elevated. DVT prophylaxis with heparin if tolerated. 1. Hx of right BKA (Z89.511: Acquired absence of right leg below knee) Pain control PT/OT discharge to rehab Ordered: [facility] Hospital Care/Day High 50 Minutes 04845 [facility]/Day Moderate 35 Minutes 45790 2. Essential hypertension (I10: Essential (primary) hypertension) good control continue to hold losartan continue lasix and imdur monitor BP Ordered: [facility] Care/Day High 50 Minutes 94820 [facility] Hospital Care/Day Moderate 35 Minutes 33946 3. Hyperlipidemia (E78.5: Hyperlipidemia, unspecified) continue statin Ordered: [facility] Care/Day High 50 Minutes 78635 [facility] Hospital Care/Day Moderate 35 Minutes 17699 4. Anemia (D64.9: Anemia, unspecified) Acute Blood loss anemia, possibly post surgical loss hgb has remained stable post transfusion continue to monitor CBC today Ordered: [facility] Care/Day High 50 Minutes 91647 [facility] Hospital Care/Day Moderate 35 Minutes 52088 5. 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 (E11.42: Type 2 diabetes mellitus with diabetic polyneuropathy) BGL is better controlled today compared to yesterday continue current insulin dose with sliding scale If BGl continues to be elevated during the day today, will start meal time scheduled coverage Ordered: [facility] Care/Day High 50 Minutes 99232 [facility] Hospital Care/Day Moderate 35 Minutes 00883 6. Stage 3 chronic kidney disease (N18.30: Chronic kidney disease, stage 3 unspecified) Overall renal function is stable continue to monitor Ordered: [facility] Hospital Care/Day High 50 Minutes 20794 [facility] Hospital Care/Day Moderate 35 Minutes 58269 7. Coronary artery disease (I25.10: Atherosclerotic heart disease of telida coronary artery withoutangina pectoris) On home medication/ continue plavix and statin Ordered: [facility] Hospital Care/Day High 50 Minutes 79941 [facility] Care/Day Moderate 35 Minutes 45996 8. Tobacco abuse (Z72.0: Tobacco use) nicotine patch Ordered: [facility] Care/Day High 50 Minutes 87561 [facility] Care/Day Moderate 35 Minutes 83884 Orders: acetaminophen-oxycodone, 2 tab(s), Tab, Oral, [id number], Routine, Start date 02/16/24 14:00:00 EDT heparin, [...] periods starting at 07:00 EDT) 02/17/24 * 09/13/24 09/12/24 Total Summary Intake mL 237 534 474.4 [...] 07:49:00) POC Dev (more content not included)...[facility] HospitalComment on above:Result Comment: Electronically Signed By: Marisela HERRERA, Elan Robbins\.br\Date and Time Signed: 02/17/24 10:36 [id number] NoteProgress Note-Physician Assessment/Plan Goals: 1. 2 time [...] Review [facility] Hospital Care/Day High 50 Minutes 76155 [facility] Hospital Care/Day High 50 Minutes 99094 2. Essential hypertension (I10: Essential (primary) hypertension) had to held lasix this morning due to low BP continue other home meds, Imdur, Ordered: Basic Metabolic Panel CBC w/ Auto Diff eGFR Path. Review [facility] Hospital Care/Day High 50 Minutes 00335 [facility] Hospital Care/Day High 50 Minutes 87672 3. Hyperlipidemia (E78.5: Hyperlipidemia, unspecified) continue statin Ordered: Basic Metabolic Panel CBC w/ Auto Diff eGFR Path. Review [facility] Hospital Care/Day High 50 Minutes 19207 [facility] Hospital Care/Day High 50 Minutes 50113 4. Anemia (D64.9: Anemia, unspecified) hgb is stable post transfusion at 7.6 since patient is stable, will start heparin prophylaxis Ordered: Basic Metabolic Panel CBC w/ Auto Diff eGFR Path. Review [facility] Hospital Care/Day High 50 Minutes 26084 [facility] Hospital Care/Day High 50 Minutes 42079 5. 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 Review [facility] Hospital Care/Day High 50 Minutes 26438 [facility] Hospital Care/Day High 50 Minutes 50024 6. Stage 3 chronic kidney disease (N18.30: Chronic kidney disease, stage 3 unspecified) stable continue to monitor Ordered: Basic Metabolic Panel CBC w/ Auto Diff eGFR Path. Review [facility] Care/Day High 50 Minutes 17485 [facility] Hospital Care/Day High 50 Minutes 75666 7. Coronary artery disease (I25.10: Atherosclerotic heart disease of telida coronary artery withoutangina pectoris) overall stable continue plavix Ordered: Basic Metabolic Panel CBC w/ Auto Diff eGFR Path. Review [facility] Hospital Care/Day High 50 Minutes 38718 [facility] Hospital Care/Day High 50 Minutes 94434 8. Tobacco abuse (Z72.0: Tobacco use) nicotine patch Ordered: Basic Metabolic Panel CBC w/ Auto Diff eGFR Path. Review [facility] Hospital Care/Day High 50 Minutes 49207 [facility] Hospital Care/Day High 50 Minutes 67080 Orders: acetaminophen-oxycodone, 2 tab(s), Tab, Oral, [id number], Routine, Start date 02/16/24 14:00:00 EDT heparin, [...] adenopathy, no tenderness (more content not included)...[facility] HospitalComment on above:Result Comment: Electronically Signed By: Marisela HERRERA, Elan Humphrey.br\Date and Time Signed: 02/16/24 13:30 [id number] NotePath ReviewPeripheral smear evaluation: - Moderate microcytic and hypochromic anemia with anisopoikilocytosis. - White blood cell and Platelet: Unremarkable. Comment: Recommend clinical correlation and rule out iron deficiency anemia. CPT: 22616 Moncho Blood MD 02/21/2024 12:59:29 EDT *NA* (02/16/24 6:12 AM)[facility] [facility] [place] Danielle 09-12-2024 NoteProgress Note-Physician [...] Diff [facility] Hospital Care/Day High 50 Minutes 21291 2. Essential hypertension (I10: Essential (primary) hypertension) good control continue current medications Ordered: Basic Metabolic Panel CBC w/ Auto Diff [facility] Hospital Care/Day High 50 Minutes 24075 3. Hyperlipidemia (E78.5: Hyperlipidemia, unspecified) statin Ordered: Basic Metabolic Panel CBC w/ Auto Diff [facility] Hospital Care/Day High 50 Minutes 26437 4. Anemia (D64.9: Anemia, unspecified) hgb has remained stable since transfusion hgb is 7.7. i thought it should be higher than than considering that he received 2 units of PRBC. Ordered: Basic Metabolic Panel CBC w/ Auto Diff [facility] Hospital Care/Day High 50 Minutes 41920 5. 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 (E11.42: Type 2 diabetes mellitus with diabetic polyneuropathy) BGL is poorly controlled diabetic diet increase lantus to 25 units QHS accucheck achs Ordered: Basic Metabolic Panel CBC w/ Auto Diff [facility]/Day High 50 Minutes 34011 6. Stage 3 chronic kidney disease (N18.30: Chronic kidney disease, stage 3 unspecified) overall stable, but noted mild increase in creatinine today contiue to monitor Ordered: Basic Metabolic Panel CBC w/ Auto Diff [facility] Care/Day High 50 Minutes 50436 7. Coronary artery disease (I25.10: Atherosclerotic heart disease of telida coronary artery withoutangina pectoris) Plavix for secondary prophylaxis Ordered: Basic Metabolic Panel CBC w/ Auto Diff [facility] Hospital Care/Day High 50 Minutes 62214 8. Tobacco abuse (Z72.0: Tobacco use) nicotine patch Ordered: Basic Metabolic Panel CBC w/ Auto Diff [facility] Care/Day High 50 Minutes 00053 Orders: insulin glargine, 25 unit(s), Injection-Insulin, SubCutaneous, [...] 22.2 % Low (more content not included)...[facility] HospitalComment on above:Result Comment: Electronically Signed By: Marisela HERRERA, Elan Humphrey.nile\Date and Time Signed: 02/15/24 13:28 [id number] NoteInterdisciplinary Note - PT PT Evaluation completed [...] in order to return home again safelyOhio[facility]09-[facility]24 NoteProgress Note-Physician Assessment/Plan 1. 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 due to poor pain control, I discontinued IV morphine and switched to IV dilaudid PT/OT appreciate Vascular team recommendations Ordered: [facility] Care/Day High 50 Minutes 81412 2. Essential hypertension (I10: Essential (primary) hypertension) Better compared to yesterday. continue current management currently on lasix, losartan, metoprolol and imdur. seems to be too much BP meds since BP is about 120s. continue to monitor BP. Ordered: [facility] Hospital Care/Day High 50 Minutes 77822 3. Hyperlipidemia (E78.5: Hyperlipidemia, unspecified) continue statin Ordered: [facility] Care/Day High 50 Minutes 34144 4. Anemia (D64.9: Anemia, unspecified) Acute on chronic anemia due to surgical intervention hgb has remained stable since transfusion continue to monitor h and h Ordered: [facility] Care/Day High 50 Minutes 80751 5. 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 continue lantus at current dose continue Jardiance and Glimipiride Ordered: [facility] Hospital Care/Day High 50 Minutes 72079 6. Stage 3 chronic kidney disease (N18.30: Chronic kidney disease, stage 3 unspecified) possible due to complication of DM. monitor renal function. creatinine at baseline of 1.9. needs out patient follow up for Nephro recommendation 7. Coronary artery disease (I25.10: Atherosclerotic heart disease of telida coronary artery withoutangina pectoris) continue plavix and asa as ordered Orders: acetaminophen-oxycodone, 1 tab(s), Tab, Oral, [id number], Routine, Start date 02/13/24 13:00:00 EDT furosemide, [...] right BKA Debbie (more content not included)...[facility] HospitalComment on above: Result Comment: Electronically Signed By: Marisela HERRERA, Elan Humphrey.br\Date and Time Signed: 02/14/24 09:57 [id number] NoteProgress Note-Physician Assessment/Plan 1. 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 appreciate additional recommendation from Vascular team Ordered: Initial Hospital Care/Day High 75 Minutes 82483 2. Essential hypertension (I10: Essential (primary) hypertension) BP on the low side today unsure if this is related to ?Anemia hold Losartan monitor BP, if still low, will bolus. Ordered: Initial Hospital Care/Day High 75 Minutes 85414 3. Hyperlipidemia (E78.5: Hyperlipidemia, unspecified) statin Ordered: Initial Hospital Care/Day High 75 Minutes 23712 4. Anemia (D64.9: Anemia, unspecified) Acute on chronic anemia. acute loss due to post op blood loss transfused 2 units of PRBC today. continue to monitor will hold asa and plavix for now and resume when Anemia improves or stabilized Also hold off on anticoagulation until anemia stabilizes can do scd on left leg Ordered: Initial Hospital Care/Day High 75 Minutes 92019 5. 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 (E11.42: Type 2 diabetes mellitus with diabetic polyneuropathy) poorly controlled diabetic diet continue glimipiride, lantus and januvia Monitor BGL and treate with sliding scale as needed Ordered: Initial Hospital Care/Day High 75 Minutes 05604 Orders: acetaminophen-oxycodone, 1 tab(s), Tab, Oral, [id number], Routine, Start date 02/13/24 13:00:00 EDT amitriptyline, [...] He is now interested in going to [facility] to get PT to enable [...] No tenderness, Luzmaria (more content not included)...[facility] HospitalComment on above:Result Comment: Electronically Signed By: Marisela HERRERA, Elan Humphrey.nile\Date and Time Signed: 02/13/24 12:25 [id number] NoteHistory and Physical History of Present Illness [...] mg/dL High (02/12/24 17:15:00) POC Device SN: [id number] (02/12/24 17:15:00) POC User ID: [id number] (02/12/24 17:15:00) POC Username: POC Username (02/12/24 [...] day (at bedti (more content not included)...[facility] HospitalComment on above:Result Comment: Electronically Signed By: Marisela HERRERA, Elan Robbins\.br\Date and Time Signed: 02/12/24 18:34 [id number] Evaluation + Plan note* Assessment & Plan Note - Mike Montes MD - 01/18/2024 9:04 AM EDTAssociated Problem(s): Cigarette smoker Counseled him on smoking cessation at length. He is willing to quit. T [facility]08-15-2024 Miscellaneous Notes* Assessment & Plan Note - Mike Montes MD - 01/18/2024 9:04 AM EDTAssociated Problem(s): Cigarette smoker Counseled him on smoking cessation at length. He is willing to quit. 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 Will do it here at [facility]. 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 Will do it here at [facility]. [facility]08-15-[facility] History of Present illness Narrative* [...] control exposed bone. The patient and his assistant account manager are sending him for below-knee amputation. We [...] mg total) by mouth in the morning. [employer] 33 gauge misc Inject 1 [...] Critical limb ischemia of right lower extremity ([facility]) Diabetes mellitus type 2, controlled ([facility] GERD (gastroesophageal reflux disease) Hyperlipidemia Hypertension Past Surgical History: Past Surgical History: Procedure Laterality Date AMPUTATION FOOT / TOE Right 09/29/2023 APPENDECTOMY BYPASS ARTERY FEMORAL POPLITEAL Right 11/08/2023 Performed by Mike Montes MD at [facility] SPECIAL PROC CARDIAC CATHETERIZATION x4 heart stents COLONOSCOPY PROSTATE SURGERY SPINE SURGERY Vascular Invasive Right lower extremity angiogram with intervention/stent Right 11/07/2023 Performed by Mike Montes MD at [facility] CARDIAC CATH LABS Social and [...] below-knee amputation. Will do it here at [facility]. Myra was seen today for angioplasty rle follow up - procedure at [facility]. yolanda and critical limb ischemia of right lower extremity with gangre. 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 While intending to generate a timely document that accurately reflects the content of the visit, no guarantee can be provided that every grammatical or spelling mistake has been or will be identified or corrected. Thank you for your understanding. documented in this encounterFayette County Memorial Hospital08-15-2024 Instructions* Patient Instructions* Mike Montes MD - 01/18/2024 8:50 AM EDT Are You Ready To Kick The Habit? Free Tobacco Cessation Resources [facility] Services [facility] provide all employees with free tobacco cessation services that include: Counseling to understand nicotine addiction Education about medications that can help you successfully quit Assistance with developing a plan to quit Call to set up an individual appointment or find out when group classes will be held: [facility]: [phone] [facility]: [phone] [facility]: [phone] [facility]: [phone] Quit Smoking Action Plan and Resources [facility] offers an eight-week, online smoking cessation plan to all [facility] employees, regardless of whether [place] is your medical insurance provider. Go to [email or web address] and click the Health Risk Assessment and Resources link to get started. In the [place] menu, click Action Plans instead of Health Risk Assessment to access the Quit Smoking Action Plan. Additional smoking cessation resources are also available to all [facility] employees on the [place] web page at [email or web address]. [place] Tobacco Cessation Program If [place] is your medical insurance provider, there are more free resources available to you, including: No copays or deductibles on local tobacco cessation counseling services to help you quit Prescription assistance for tobacco cessation medications to help you quit For details about the tobacco cessation program available to [place] members, go to [email or web address] (Search: Tobacco Cessation Program). [place] Tobacco Quit Line 6-906-JYHK-NOW ( ) is a toll-free, telephonic service that helps [place] residents quit smoking and using tobacco. It is staffed by experts who tailor a quit plan for you and provide you with advice. [place] Tobacco Quit Line 2-900-OCKU-NOW ( ) is a toll-free, telephonic service [...] and resources to help you quit tobacco: [place] Cancer Society--www.cancer.org/healthy/stayawayfromtobacco [place] Heart Association--www.heart.org (Search: Quit Smoking) Centers for Disease Control and Prevention--www.cdc.gov/tobacco [place] Lung Association--www.lungusa.org documented in this encounterCrystal Clinic Orthopedic CenterDTT [id number] NotePatient Education - Text [place], [place] Cardiovascular PCI DISCHARGE INSTRUCTIONS Diet: ? [...] for any reason without talking to your commissions specialist Site Care: ? Do not remove [...] you are interested in smoking cessation, contact [facility] at [phone], ext. [phone]. ? In the event you are unable to reach your physician, please call Rosa at [phone] andthe planimeter operator will assist you. Seek Medicare Care [...] urine or stool ? 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 He has some residual tibial occlusive disease. I discussed with him doing right lower extremity angiogram and intervention. Will do this 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 He has some residual tibial occlusive disease. I discussed with him doing right lower extremity angiogram and intervention. Will do this close to home at [facility]. documented in this encounterFayette County Memorial Hospital07-18-2024 History of Present illness Narrative* [...] Critical limb ischemia of right lower extremity ([facility]) Diabetes mellitus type 2, controlled ([facility]) GERD (gastroesophageal reflux disease) Hyperlipidemia Hypertension Past Surgical History: Past Surgical History: Procedure Laterality Date AMPUTATION FOOT / TOE Right 09/29/2023 APPENDECTOMY BYPASS ARTERY FEMORAL POPLITEAL Right 11/08/2023 Performed by Mike Montes MD at [facility] SPECIAL PROC CARDIAC CATHETERIZATION x4 heart stents COLONOSCOPY PROSTATE SURGERY SPINE SURGERY Vascular Invasive Right lower extremity angiogram with intervention/stent Right 11/07/2023 Performed by Mike Montes MD at [facility] CARDIAC CATH LABS Social and [...] Will do this close to home at [facility]. Diagnoses and all orders for this [...] you for your understanding. documented in this encounterProMedica Health [id number] History of Present illness Narrative* Guero Chacon Anel, DO - 11/30/2023 11:10 PM EDT Patient Name: Myra Pickard Date of : 1965 Date of Service: 11/30/2023 Facility: [facility] Type of Visit: Skilled Visit Subjective Myra Pickard is a 58 y.o. male [facility]. Myra is in [...] Exam Vitals reviewed. Exam conducted with a functional consultant present (). Constitutional: General: He is not [...] ischemia of right lower extremity with gangrene ([facility]) 2. 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 ([facility]) 3. Delayed surgical wound healing of [...] BY: Guero Tam DO documented in this encounterFayette County Memorial Hospital06-27-2024 Evaluation + Plan note* Assessment & Plan Note - Mike Montes MD - 11/30/2023 9:19 AM EDT Associated Problem(s): Cigarette smoker motivated to quit Counseled on smoking cessation for at least 3 minutes [facility]06-27-2024 Miscellaneous Notes* Assessment & Plan Note - Mike Montes MD - 11/30/2023 9:19 AM EDTAssociated Problem(s): Cigarette smoker motivated to quit Counseled on smoking cessation for at least 3 minutes documented in this encounterFayette County Memorial Hospital06-27-2024 History of Present illness Narrative* [...] ischemia of right lower extremity with gangrene ([facility]) Cigarette smoker motivated to quit Plan [...] Mike Montes MD, BG documented in this encounterFayette County Memorial Hospital06-27-2024 Instructions* Patient Instructions* Mike Montes MD - 11/30/2023 8:50 AM EDT Are You Ready To Kick The Habit? Free Tobacco Cessation Resources [facility] Services [facility] provide all employees with free tobacco cessation services that include: Counseling to understand nicotine addiction Education about medications that can help you successfully quit Assistance with developing a plan to quit Call to set up an individual appointment or find out when group classes will be held: [facility]: [phone] [facility]: [phone] [facility]: [phone] [facility]: [phone] Quit Smoking Action Plan and Resources [facility] offers an eight-week, online smoking cessation plan to all [facility] employees, regardless of whether [place] is your medical insurance provider. Go to [email or web address] and click the Health Risk Assessment and Resources link to get started. In the Escsp5Lcpemo menu, click Action Plans instead of Health Risk Assessment to access the Quit Smoking Action Plan. Additional smoking cessation resources are also available to all [facility] employees on the Cahtg7Ibpdxb web page at [email or web address]. [place] Tobacco Cessation Program If [place] is your medical insurance provider, there are more free resources available to you, including: No copays or deductibles on local tobacco cessation counseling services to help you quit Prescription assistance for tobacco cessation medications to help you quit For details about the tobacco cessation program available to [place] members, go to www.Koala Databankcare.com (Search: Tobacco Cessation Program). [place] Tobacco Quit Line 2-202-MREU-NOW ( ) is a toll-free, telephonic service that helps [place] residents quit smoking and using tobacco. It is staffed by experts who tailor a quit plan for you and provide you with advice. [place] Tobacco Quit Line 7-133-USSQ-NOW ( ) is a toll-free, telephonic service [...] and resources to help you quit tobacco: [place] Cancer Society--www.cancer.org/healthy/stayawayfromtobacco [place] Heart Association--www.heart.org (Search: Quit Smoking) Centers for Disease Control and Prevention--www.cdc.gov/tobacco [place] Lung Association--www.lungusa.org documented in this encounterSpringfield HospitalBUILD [id number] History of Present illness Narrative* Guero Tam, DO - 11/24/2023 6:57 PM EDT Patient Name: Myra Pickard Date of : 1965 Date of Service: 11/24/2023 Facility: [facility] Type of Visit: Skilled Visit Subjective Myra Pickard is a 58 y.o. male [facility]. Myra is in therapy. He is hoping to be allowed to wt bear on his right foot. His called the assistant account manager to ask to be allowed to wt [...] Exam Vitals reviewed. Exam conducted with a functional consultant present (). Constitutional: General: He is not [...] Status post partial amputation of right foot ([facility]) 2. Other abnormalities of gait and mobility 3. Leg edema 4. Primary hypertension 5. Hypotension due to drugs 6. 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 Diabetic neuropathy His leg edema [...] BY: Guero Tam DO documented in this encounterFayette County Memorial Hospital06-17-2024 Evaluation + Plan note Future Scheduled Tests Radiology* US PVR Lower EXT Complete Bilat [facility]23 [facility] Miscellaneous Notes* Telephone Encounter - Ashley Colon - 11/10/2023 10:05 AM EDT LMVM for patient's to call back with her Date of so I can update his billing info. documented in this encounterFayette County Memorial Hospital06-07-2024 Telephone encounter Note* Telephone Encounter - Ashley Colon - 11/10/2023 10:05 AM EDT LMVM for patient's to call back with her Date of so I can update his billing info. [facility]06-04-2024 History of Present illness Narrative* Guero Tam DO - 11/07/2023 11:59 PM EDT Patient Name: Myra Pickard Date of : 1965 Date of Service: 11/07/2023 Facility: [facility] Type of Visit: Skilled Visit Subjective Myra Pickard is a 58 y.o. male [facility]. Myra is participating [...] Assessment / Plan 1. Peripheral arterial disease ([facility]) 2. Delayed surgical wound healing of foot amputation stump ([facility]) 3. Other abnormalities of gait and mobility 4. Status post partial amputation of right foot ([facility]) 5. Pressure ulcer of right ankle, stage 3 ([facility]) 6. Type 2 diabetes mellitus with stage 4 chronic kidney disease, without long- term current use of insulin ([facility]) I checked his medications and he is on Trulicity so he doesn't need Januvia. F/U with vascular surgeon. May need further intervention in leg. Continue therapy to reach MMI. All medications reviewed and are medically necessary. ELECTRONICALLY SIGNED BY: Guero Tam DO documented in this encounterFayette County Memorial Hospital05-31-2024 History of Present illness Narrative* Guero Tam DO - 11/03/2023 11:59 PM EDT Patient Name: Myra Pickard Date of : 1965 Date of Service: 11/03/2023 Facility: [facility] Type of Visit: Skilled Visit Subjective Myra Pickard is a 58 y.o. male [facility]. No new problems [...] Exam Vitals reviewed. Exam conducted with a functional consultant present (). Constitutional: General: He is not [...] Status post partial amputation of right foot ([facility]) 2. Pressure ulcer of right ankle, stage 3 (CMS-HCC) 3. Other abnormalities of gait and mobility 4. Delayed surgical wound healing of foot amputation stump (CMS-HCC) Await results of CT angiogram. May need vascular intervention. Continue therapy to reach maximum improvement. Continue other orders as directed. ELECTRONICALLY SIGNED BY: Guero Tam, DO documented in this encounterCrystal Clinic Orthopedic CenterDTT [id number] History of Present illness Narrative* Guero Ines DO Anel - 10/25/2023 11:59 PM EDT Patient Name: Myra Pickard Date of : 1965 Date of Service: 10/25/2023 Facility: [facility] Type of Visit: Skilled Visit Subjective Myra Pickard is a 58 y.o. male seen [facility]. Myra was seen [...] Exam Vitals reviewed. Exam conducted with a functional consultant present ([facility]ef[facility] Ros[facility] Constitutional: General: He is not in acute [...] Status post partial amputation of right foot ([facility]) 2. Osteomyelitis of right foot, unspecified type ([facility]) 3. Muscle weakness (generalized) 4. Other abnormalities of gait and mobility 5. Chronic obstructive pulmonary disease, unspecified COPD type ([facility]) 6. Peripheral arterial disease I'll [...] BY: Guero Tam DO documented in this encounterSpringfield HospitalSolidcore Systems05-21-2024 NoteSinus tachycardia Rightward axis Poor anterior R wave progression QTc 481 [id number] History of Present illness Narrative* Raulito Inman [...] exam, discussion and plan. documented in this encounterLutheran Hospital Work Phone: 1(203) 927-949505-21-2024 Instructions* Patient Instructions* Rosemary Benavides LPN - [...] from a cardiac standpoint documented in this encounterLutheran Hospital Work Phone: 1(420) 893-450205-15-2024 Miscellaneous Notes* Telephone Encounter - Cameron Mg LPN - 10/18/2023 9:30 AM EDT Physician requested stat testing, patient unable to complete testing in [place] area> Spoke to Dr. Montes, patient can have testing and f/u at [place] [facility]. [place] [facility] staff aware. Faxed orders to [place] [facility] at [phone].Patient unable to complete testing at times that were offered, requested a Monday or Monday. documented in this encounterFayette County Memorial Hospital05-15-2024 Telephone encounter Note* Telephone Encounter - Cameron Mg LPN - 10/18/2023 9:30 AM EDT Physician requested stat testing, patient unable to complete testing in [place] area> Spoke to Dr. Montes, states patient can have testing and f/u at [place] [facility]. [place] [facility] staff aware. Faxed orders to [place] office at [phone].Patient unable to complete testing at times that were offered, requested a Monday or Monday. [facility]05-15-2024 Evaluation + Plan note* Assessment & Plan Note - Mike Montes MD - 10/18/2023 8:52 AM EDTAssociated Problem(s): Heavy tobacco smoker >10 cigarettes per day Counseled in length willing to quit. 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 I looked at a stress test andbasic [...] circulation - [facility] - [place], [place] Heavy tobacco smoker >10 cigarettes per day Mike Montes MD, BG, RPVI, FSVS, FACS [facility] This note was created with the assistance of a speech recognition program. While intending to generate a timely document that accurately reflects the content of the visit, no guarantee can be provided that every grammatical or spelling mistake has been or will be identified or corrected. Thank you for your understanding. documented in this encounterFayette County Memorial Hospital05-15-2024 Instructions* Patient Instructions* Mike Montes MD - 10/18/2023 8:30 AM EDT Are You Ready To Kick The Habit? Free Tobacco Cessation Resources [facility] Services [facility] provide all employees with free tobacco cessation services that include: Counseling to understand nicotine addiction Education about medications that can help you successfully quit Assistance with developing a plan to quit Call to set up an individual appointment or find out when group classes will be held: [facility]: [phone] [facility]: [phone] [facility]: [phone] [facility]: [phone] Quit Smoking Action Plan and Resources [facility] offers an eight-week, online smoking cessation plan to all [facility] employees, regardless of whether [place] is your medical insurance provider. Go to [email or web address] and click the Health Risk Assessment and Resources link to get started. In the Xpbjp1Kinwxz menu, click Action Plans instead of Health Risk Assessment to access the Quit Smoking Action Plan. Additional smoking cessation resources are also available to all [facility] employees on the [place] web page at [email or web address]. [place] Tobacco Cessation Program If [place] is your medical insurance provider, there are more free resources available to you, including: No copays or deductibles on local tobacco cessation counseling services to help you quit Prescription assistance for tobacco cessation medications to help you quit For details about the tobacco cessation program available to [place] members, go to www.ProDeaf.Blowtorch (Search: Tobacco Cessation Program). [place] Tobacco Quit Line 3-709-MJLF-NOW ( ) is a toll-free, telephonic service that helps [place] residents quit smoking and using tobacco. It is staffed by experts who tailor a quit plan for you and provide you with advice. [place] Tobacco Quit Line 7-339-WHBX-NOW ( ) is a toll-free, telephonic service [...] and resources to help you quit tobacco: [place] Cancer Society--www.cancer.org/healthy/stayawayfromtobacco [place] Heart Association--www.heart.org (Search: Quit Smoking) Centers for Disease Control and Prevention--www.cdc.gov/tobacco [place] Lung Association--www.lungusa.org documented in this encounterFayette County Memorial Hospital05-15-2024 Note* Addendum Note - Mike Montes MD - 10/18/2023 8:30 AM EDTAddended by: MIKE MONTES on: 10/18/2023 09:00 AM Modules accepted: Orders [facility] [id number] History of Present illness Narrative* Guero Tam DO - 10/17/2023 11:59 PM EDT Patient Name: Myra Pickard Date of : 1965 Date of Service: 10/17/2023 Facility: [facility] Type of Visit: Skilled Visit Subjective Myra Pickard is a 58 y.o. male [facility]. Myra has been [...] 97% Physical Exam Exam conducted with a functional consultant present ([facility]ef[facility] Constitutional: General: He is not in acute [...] Status post partial amputation of right foot ([facility]) 2. 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 Type 2 diabetes mellitus with stage 4 chronic kidney disease, without long- term current use of insulin ([facility]) I'm going to add duloxetine 60 mg daily for diabetic neuropathy. Continue therapy. All medications reviewed and are medically necessary. F/U with specialists as directed. ELECTRONICALLY SIGNED BY: Guero Tam DO documented in this encounterSpringfield HospitalBUILD [id number] History of Present illness Narrative* Guero Tam DO - 10/10/2023 11:33 PM EDT Patient Name: Myra Pickard Date of : 1965 Date of Service: 10/10/2023 Facility: [facility] Type of Visit: Skilled Visit Subjective Myra Pickard is a 58 y.o. male seen [facility]. Myra is having diarrhea. He had 5 episodes in last day and had an accident in bed. He doesn't haveany pain, blood or fever. There isn't a foul smell reported like one would expect with C. dif. He is on levofloxacin for osteomyelitis. He has an appointment with the assistant account manager on Monday. He said his colonoscopy was [...] 98% Physical Exam Exam conducted with a functional consultant present (Lefty Rosas MSIII). Constitutional: General: He [...] 2. Other acute osteomyelitis of right foot ([facility]) 3. Status post partial amputation of right foot ([facility]) 4. Chronic obstructive pulmonary disease, unspecified COPD type ([facility]) 5. Abscess of right foot Will try immodium 2mg 2 po Q6 hrs prn for diarrhea. May need to check for C. dif Continue therapy. F/U with assistant account manager on Monday. All medications reviewed and are medically necessary. May need to adjust diabetic medications in future. ELECTRONICALLY SIGNED BY: Guero Tam DO documented in this encounterSpringfield HospitalSolidcore Systems05-03-2024 History of Present illness Narrative* Guero Tam DO - 10/06/2023 4:49 PM EDT Patient Name: Myra Pickard Date of : 1965 Date of Service: 10/06/2023 Facility: [facility] Type of Visit: Admission H&P Subjective Myra Pickard is a 58 y.o. male seen [facility] for [facility] H&P. Myra presents to [facility] for therapies following hospitalization for sepsis [...] 96% Physical Exam Exam conducted with a functional consultant present ( present). Constitutional: General: He is [...] Status post partial amputation of right foot ([facility]) 3. Type 2 diabetes mellitus with stage 4 chronic kidney disease, without long- term current use of insulin ([facility]) 4. Atherosclerosis of telida coronary artery of telida heart without angina pectoris 5. Bacterial sepsis ([facility] 6. Other acute osteomyelitis of right foot ([facility]) 7. Chronic obstructive pulmonary disease, unspecified COPD type ([facility]) 8. Cigarette smoker 9. BPH with obstruction/lower urinary tract symptoms 10. Gastroesophageal reflux disease, unspecified whether esophagitis present 11. Restless leg syndrome 12. Hyperlipidemia, unspecified hyperlipidemia type 13. Carpal tunnel syndrome, unspecified laterality 14. Heart failure, unspecified HF chronicity, unspecified heart failure type ([facility]) Admit to [facility] for therapies. Full code. Continue medications from hospital. F/U with specialists as directed. Good rehab potential. Planning on discharge to home when able. ELECTRONICALLY SIGNED BY: Guero Tam DO documented in this [facility]Solid[facility] Systems[facility]24 Hospital Discharge instructions Follow Up Care 07/13/2023 12:04:02 With:SOLEDAD HERRERA, Yeyo Blum, URL Address: [address] [place], [place] [id number]- When: Unknown [facility] Evaluation [facility]* Encounter Date Diagnosis Assessment Notes Treatment Notes Treatment Clinical Notes Jun, Hyperlipidemia (ICD-10 - E78.5) [employer] Other 12-29-2023 Hospital Discharge instructions Patient Education [...] urethra. Follow these instructions at home: Take jfxk-ler-uobhler and prescription medicines only as told by [...] provider. Document Revised: 12/08/2021 Document Reviewed: 12/08/2021 [employer] Patient Education 2022 [employer]. Follow Up Care 06/01/2023 14:05:36 With:SOLEDAD HERRERA, Yeyo Blum, URL Address: [address] [place] [address] When: Unknown [facility] 12-12-2023 Evaluation note* Encounter Date Diagnosis Assessment Notes Treatment Notes Treatment Clinical Notes May, Type 2 diabetes bobby itus with circulatory disorder (ICD-10 - E11.59) [employer] Other 11-24-2023 Evaluation note* Encounter Date Diagnosis Assessment Notes Treatment Notes Treatment Clinical Notes Apr, Diabetic nephropathy (ICD-10 - E 11.21) [employer] Other 11-07-2023 Evaluation note* Encounter Date Diagnosis Assessment Notes Treatment Notes Treatment Clinical Notes Apr, Left arm pain (ICD-10 - M79.602) [employer] Other 11-02-2023 Evaluation note* Encounter Date Diagnosis Assessment Notes Treatment Notes Treatment Clinical Notes Apr, Encounter for pre-operative exam ination (ICD-10 - Z01.818) I did review pt's cardiac testing, lab work, as well as his cardiac clearance. Pt is scheduled withDr. Rowe for a cystoscopy, and will have sedation and a spinal block. Pt is borderline anemic, and I do recommend he take Slow-Fe OTC for this, but that he wait until after his surgery. It is my medical opinion that pt is clear for the scheduled surgery under the outlined anesthesia. Apr,nemia (ICD-10 - D64.9) Pt is to start the above medication after his surgery. He is to take one tablet a day for two weeks, then may decrease to every other day. Apr,ladder mass (ICD-10 - N32.89) We did discuss these masses at length, and discussed some of the possible causes of these. He is tocontinue to follow with Dr. Rowe, and to have his surgery as scheduled. [employer] Other 10-24-2023 Evaluation note* Encounter Date Diagnosis Assessment Notes Treatment Notes Treatment Clinical Notes Mar, Type 2 diabetes bobby itus with circulatory disorder (ICD-10 - E11.59) Mar,therosclerotic heart disease of telida coronary artery without angina pectoris (ICD-10 - I25.10) [employer] Other 10-11-2023 Evaluation note* Encounter Date Diagnosis Assessment Notes Treatment Notes Treatment Clinical Notes Mar, Type 2 diabetes bobby itus with circulatory disorder (ICD-10 - E11.59) In house hgb a1c today is 7.5 and has significantly improved from 10.2. He is to continue on the above regimen and monitor diet. Mar,Sepsis (ICD-10 - A41.9) Patient is to continue with PT/OT for strength training and was advised his body will take time to recover from the significant infection he just had. Strongly encouraged he not wait as long to go [facility] ER if something like this were to happen in the future as states she had to have nurses from her work place come assess him and talk him into going. He and voiced understanding. Mar,UTI (urinary tract infection) (ICD-10 - N39.0) No records available as of yet from [facility]. He was found to have developed the UTI likely secondary to not having had the garza catheter in place as he was trying to see how he does without it prior to the TURP procedure planned for 04/[address] Rowe due to the polyps in his prostate. Mar,Hypertensive chronic kidney disease with stage 1 through stage 4 chronic kidney disease, or unspecified chronic kidney disease (ICD-10 - I12.9) Due to blood pressures being more on the hypotensive side, was encouraged to cut his valsartan-hctz in half if possible. He is to continue to montior this at home. [employer] Other [id number] Note [id number] 02-14-2023 Hospital Discharge instructions Patient [...] including vitamins, herbs, eye drops, creams, and mpet-ajj-qqwtrma medicines. Any problems you or family members [...] provider tells you to take them. Taking gikd-lbb-adkyuwc medicines, vitamins, herbs, and supplements. Surgery safety [...] provider. Document Revised: 02/15/2022 Document Reviewed: 02/15/2022 [employer] Patient Education 2022 [employer]. [facility]08-28-2023 Hospital Discharge instructions Patient Education [...] including vitamins, herbs, eye drops, creams, and zpap-enq-yqpazgk medicines. ?Whether you are or may be [...] provider. Document Revised: 02/02/2022 Document Reviewed: 12/25/2020 [employer] Patient Education 2022 [employer]. 01/30/2023 11:22:30 Cystoscopy Cystoscopy Cystoscopy is a [...] including vitamins, herbs, eye drops, creams, and rlpp-fso-muwccnm medicines. Any problems you or family members [...] provider tells you to take them. Taking fwtj-hyb-oljhjhz medicines, vitamins, herbs, and supplements. Tests You [...] Follow these instructions at home: Medicines Take yjpg-lla-qvbrgau and prescription medicines only as told by [...] provider. Document Revised: 02/02/2022 Document Reviewed: 01/01/2021 [employer] Patient Education 2022 [employer]. Follow Up Care 11/23/2022 13:02:56 With:SOLEDAD HERRERA, Yeyo Blum, URL Address: [facility] [address] , [place] [phone] When: Unknown Comments:sched cysto/uros [facility] Evaluation note* Encounter Date Diagnosis Assessment Notes Treatment Notes Treatment Clinical Notes Jan, Diabetic nephropathy (ICD-10 - E 11.21) [employer] Other 06-29-2023 Evaluation note* Encounter Date Diagnosis Assessment Notes Treatment Notes Treatment Clinical Notes Nov, Acute intractable he adache, unspecified headache type (ICD-10 - R51.9) Pt is doing well on the above medication, therefore a refill was provided for them today. Nov,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) Last hgb a1c was 10.2 09/27/2022. His glucometer broke but is working with Neurology to determine if he would qualify for a CGM and whether his insurance would cover one. I did recommend he be evaluated by a diabetic specialist, and states he will need a new referral to be seen by Valerie Daly cancelling two new pt appointments. His a1c was significantly elevated, therefore I recommendhe increase his Trulicity. Pt and are in agreement. Pt is to continue with the above medication and continue watching their diet and increase their exercise regimen.. Nov,iabetic nephropathy (ICD-10 - E11.21) Pt is having a hard time checking his blood sugars due to his diabetic nephropathy. He is to continue the above medication, and continue to follow with neurology. Nov,Hypertensive chronic kidney disease with stage 1 through stage 4 chronic kidney disease, or unspecified chronic kidney disease (ICD-10 - I12.9) Encouraged pt to follow consult with Dr. Fagan soon. He is to continue the above medication and we will continue to monitor. Nov,RLS (restless legs syndrome) (ICD-10 - G25.81) Pt is doing well on the above medication, therefore a refill was provided for them today. Nov,Urinary retention with incomplete bladder emptying (ICD-10 - R33.9) Discussion was had regarding this, and I advised it could be caused by a number of things, including his prostate and diabetes. He reports he was having groin pain that did resolve after placement ofthe catheter. He is to continue to follow with Dr. Rowe. Nov,Hyperlipidemia (ICD-10 - E78.5) Pt is doing well on the above medication, therefore a refill was provided for them today. Pt is to continue with the above medication and continue watching their diet and increase their exercise regimen. Nov,nxiety (ICD-10 - F41.9) Pt is doing well on the above medication, therefore a refill was provided for them today. Nov,Lumbar degenerative disc disease (ICD-10 - M51.36) Pt is doing well on the above medication, therefore a refill was provided for them today after an OARRS report was generated and reviewed. 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 [employer] Other 06-21-2023 Hospital Discharge instructions Patient Education [...] provider. Document Revised: 08/11/2021 Document Reviewed: 05/07/2021 [employer] Patient Education 2021 [employer]. Follow Up Care 09/14/2022 14:23:26 With:SOLEDAD HERRERA, Yeyo Blum, URL Address: [facility] [address] , [place] [address]- When: Unknown [facility] 05-05-2023 Evaluation note* Encounter Date Diagnosis Assessment Notes Treatment Notes Treatment Clinical Notes October, Erectile dysfunction , unspecified erectile dysfunction type (ICD-10 - N52.9) [employer] Other 04-19-2023 Evaluation note* Encounter Date Diagnosis Assessment Notes Treatment Notes Treatment Clinical Notes Sep, Type 2 diabetes bobby itus with circulatory disorder (ICD-10 - E11.59) [employer] Other 04-12-2023 Evaluation note* Encounter Date Diagnosis Assessment Notes Treatment Notes Treatment Clinical Notes Sep, Atherosclerotic hear t disease of telida coronary artery without angina pectoris (ICD-10 - I25.10) Sep,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) [employer] Other 03-20-2023 Evaluation note* Encounter Date Diagnosis Assessment Notes Treatment Notes Treatment Clinical Notes Aug, Diabetic nephropathy (ICD-10 - E 11.21) [employer] Other 03-03-2023 Evaluation note* Encounter Date Diagnosis Assessment Notes Treatment Notes Treatment Clinical Notes Aug, Pain in right leg (ICD-10 - M79. 604) [employer] Other 03-02-2023 Evaluation note* Encounter Date Diagnosis Assessment Notes Treatment Notes Treatment Clinical Notes Aug, Pain in right leg (ICD-10 - M79. 604) [employer] Other 02-20-2023 Evaluation note* Encounter Date Diagnosis Assessment Notes Treatment Notes Treatment Clinical Notes Jul, Intractable episodic headache, unspecified headache type (ICD-10 - R51.9) [employer] Other 02-14-2023 Evaluation note* Encounter Date Diagnosis Assessment Notes Treatment Notes Treatment Clinical Notes Jul, Acute intractable he adache, unspecified headache type (ICD-10 - R51.9) [employer] Other 02-08-2023 Evaluation note* Encounter Date Diagnosis Assessment Notes Treatment Notes Treatment Clinical Notes Jul, Headache (ICD-10 - R51.9) [employer] Other 01-30-2023 Evaluation note* Encounter Date Diagnosis Assessment Notes Treatment Notes Treatment Clinical Notes Jun, Acute intractable he adache, unspecified headache type (ICD-10 - R51.9) The patient complains that high-pitched sounds trigger his head pain that starts out primarily in the occipital frontal region and becomes more generalized as the day goes on. Blood pressure findingsare mildly elevated today in the office. The patient advised to use caution taking Ibuprofen due tohis kidney disease.Discussion was had regarding a possible component of arthritis contributing to the headaches. A Toradol injection offered and administered today, I advise he stays cognitive if this improves the pain. The above muscle relaxer and instructions provided. Jun,iabetic nephropathy (ICD-10 - E11.21) Pt is to continue with the above medication, a refill was provided and we will continue to monitor.The patient encourged to follow through with Doris Barnes as scheduled tomorrow 07/05/22. Jun,Hypertensive chronic kidney disease with stage 1 through stage 4 chronic kidney disease, or unspecified chronic kidney disease (ICD-10 - I12.9) The patient consulted with nephrology in the past, last visit was 10/2021 with and did not follow up as recommended.I strongly recommend they reschedule cancelled appointment. Jun,RLS (restless legs syndrome) (ICD-10 - G25.81) Pt is to continue with the above medication, a refill was provided and we will continue to monitor.OARRS report generated and reviewed. Jun,ERD (gastroesophageal reflux disease) (ICD-10 - K21.9) Pt is to continue with the above medication and we will continue to monitor. [employer] Other 12-21-2022 Evaluation note* Encounter Date Diagnosis Assessment Notes Treatment Notes Treatment Clinical Notes May, Diabetic nephropathy (ICD-10 - E 11.21) [employer] Other 11-21-2022 Evaluation note* Encounter Date Diagnosis Assessment Notes Treatment Notes Treatment Clinical Notes Apr, Diabetic nephropathy (ICD-10 - E 11.21) [employer] Other 11-15-2022 Evaluation note* Encounter Date Diagnosis Assessment Notes Treatment Notes Treatment Clinical Notes Apr, Pain in right leg (ICD-10 - M79. 604) [employer] Other 10-18-2022 Evaluation note* Encounter Date Diagnosis Assessment Notes Treatment Notes Treatment Clinical Notes Mar, Diabetic nephropathy (ICD-10 - E 11.21) [employer] Other 09-13-2022 Evaluation note* Encounter Date Diagnosis Assessment Notes Treatment Notes Treatment Clinical Notes Feb, Hypertensive chronic kidney disease with stage 1 through stage 4 chronic kidney disease, or unspecified chronic kidney disease (ICD-10 - I12.9) [employer] Other 09-13-2022 Evaluation note* Encounter Date Diagnosis Assessment Notes Treatment Notes Treatment Clinical Notes Feb, Diabetic nephropathy (ICD-10 - E 11.21) Fasting glucose reading of 185, in house A1C was greater than 14.0. Since the patients A1C is out of control, we will refer to Doris Barnes. Patient is agreeable and the referral was initiated. The patient reports the nephropathy getting worse which is causing him issues with walking any distances.I advised the to call the insurance to see what the protocol to getting it paid. is to call back and let us know. Feb,Hypertensive chronic kidney disease with stage 1 through stage 4 chronic kidney disease, or unspecified chronic kidney disease (ICD-10 - I12.9) Reviewed blood work results with the patient, kidney has imporved from last check. The patients blood pressure was WNL upon check in. Patient is to continue to follow with Dr. Fagan as scheduled. 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 Patient is to continue following with the CC and Dr. Inman. Feb,LS (restless legs syndrome) (ICD-10 - G25.81) Refill provided of the above. Feb,Erectile dysfunction, unspecified erectile dysfunction type (ICD-10 - N52.9) Prescription printed. Feb,GERD (gastroesophageal reflux disease) (ICD-10 - K21.9) Refill provided of the above. Feb,Hyperlipidemia (ICD-10 - E78.5) Cholesterol levels continue to be elevated upon review of blood work results. Patient is to continue to follow with the commissions specialist as scheduled. Feb,ain in right leg (ICD-10 - M79.604) Refill provided of the above. Feb,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) Fasting glucose reading of 185, and in house A1C was greater than 14.0. Therefore we will refer to Doris Barnes. Feb,Neoplasm of uncertain behavior of skin (ICD-10 - D48.5) Noted on bilateral thighs, I advised the patient to monitor for changes. Feb,creening for prostate cancer (ICD-10 - Z12.5) Review of PSA level which was WNL, therefore, we will continue to monitor. Pt denies any urinary issues at this time. Feb,Gout (ICD-10 - M10.9) Uric level is elevated upon review of blood work results. I did discuss allopurinol with the patient and advised him to discuss with Dr. Fagan. Feb,Low mean corpuscular volume (MCV) (ICD-10 - R71.8) Noted upon review of blood work results. Since the patients other blood counts are normal, we will continue to monitor. Feb,Vitamin D deficiency (ICD-10 - E55.9) Noted upon review of blood work results. [employer] Other 08-19-2022 Evaluation note* Encounter Date Diagnosis Assessment Notes Treatment Notes Treatment Clinical Notes Jan, Diabetic nephropathy (ICD-10 - E 11.21) [employer] Other 08-17-2022 Evaluation note* Encounter Date Diagnosis Assessment Notes Treatment Notes Treatment Clinical Notes Jan, Diabetic nephropathy (ICD-10 - E 11.21) [employer] Other 07-21-2022 Evaluation note* Encounter Date Diagnosis Assessment Notes Treatment Notes Treatment Clinical Notes Dec, Diabetic nephropathy (ICD-10 - E 11.21) [employer] Other 06-22-2022 Evaluation note* Encounter Date Diagnosis Assessment Notes Treatment Notes Treatment Clinical Notes Nov, Diabetic nephropathy (ICD-10 - E 11.21) [employer] Other 05-23-2022 Evaluation note* Encounter Date Diagnosis Assessment Notes Treatment Notes Treatment Clinical Notes October, Diabetic nephropathy (ICD-10 - E 11.21) [employer] Other 05-17-2022 Evaluation note* Encounter Date Diagnosis Assessment Notes Treatment Notes Treatment Clinical Notes October, CKD (chronic kidney disease) stage 3, GFR 30-59 ml/min (ICD-10 - N18.3) Chronic kidney disease likely from diabetic nephropathy. Patient has been having progressive kidneydisease related to uncontrolled diabetes. Serum creatinine up to 2.0 mg/dL. I explained the patientthat he needs better control of diabetes to attenuate CKD progression. Patient already on dyfryqfex161 mg p.o. daily. Patient has minimal proteinuria. I will check protein to creatinine ratio next visit. I will continue to follow renal function panel every 3 to 4 months . I asked the patient to stay away completely from NSAIDs October,Hypertensive chronic kidney disease with stage 1 through stage 4 chronic kidney disease, or unspecified chronic kidney disease (ICD-10 - I12.9) Blood pressure seems well controlled and at target. I will continue same blood pressure medication October,2Diabetic nephropathy (ICD-10 - E11.21)Diabetes remains out of control. He passed hemoglobin A1c more than 11%. I explained to the patientthe necessity of controlling diabetes. Patient already on glucose sodium, Co transporter inhibitor.Patient follows with Dr. Lynch October,MI 34.0-34.9,adult (ICD-10 - Z68.34)He is mildly overweight, importance of weight control and its relation to diabetes control has been addressed. 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 Inman. For this October,therHe did quit smoking since July 2020 [employer] Other 05-16-2022 Evaluation note* Encounter Date Diagnosis Assessment Notes Treatment Notes Treatment Clinical Notes October, Hypertensive chronic kidney disease with stage 1 through stage 4 chronic kidney disease, or unspecified chronic kidney disease (ICD-10 - I12.9) October,tage 3 chronic kidney disease, unspecified whether stage 3a or 3b CKD (ICD-10 - N18.30) [employer] Other 05-06-2022 Evaluation note* Encounter Date Diagnosis Assessment Notes Treatment Notes Treatment Clinical Notes October, Pain in right leg (ICD-10 - M79. 604) October,ain in left leg (ICD-10 - M79.605) [employer] Other 04-20-2022 Evaluation note* Encounter Date Diagnosis Assessment Notes Treatment Notes Treatment Clinical Notes Sep, Diabetic nephropathy (ICD-10 - E 11.21) [employer] Other 04-19-2022 Evaluation note* Encounter Date Diagnosis Assessment Notes Treatment Notes Treatment Clinical Notes Sep, Anxiety (ICD-10 - F41.9) Sep,Hypertensive chronic kidney disease with stage 1 through stage 4 chronic kidney disease, or unspecified chronic kidney disease (ICD-10 - I12.9) [employer] Other 03-07-2022 Evaluation note* Encounter Date Diagnosis Assessment Notes Treatment Notes Treatment Clinical Notes Aug, Anxiety (ICD-10 - F41.9) [employer] Other 02-22-2022 Evaluation note* Encounter Date Diagnosis Assessment Notes Treatment Notes Treatment Clinical Notes Jul, RLS (restless legs syndrome) (IC D-10 - G25.81) Refill provided of the above medication. Jul,Erectile dysfunction, unspecified erectile dysfunction type (ICD-10 - N52.9) Refill provided of the above medication. Jul,GERD (gastroesophageal reflux disease) (ICD-10 - K21.9) Refill provided of the above medication. Jul,AD (coronary artery disease) (ICD-10 - I25.10) Refill provided of the above medication. Jul,iabetic nephropathy (ICD-10 - E11.21) Patient is to continue to follow with [facility] as scheduled. Jul,Insomnia (ICD-10 - G47.00) Patient reports only getting about 2-3 hours per night and denies taking naps during the day. Jul,nxiety (ICD-10 - F41.9) Patient reports only taking the above medication as needed. Jul,ilateral hip pain (ICD-10 - M25.551) Patient had a recent consult with Dr. Del Valle. Jul,Hyperlipidemia (ICD-10 - E78.5) Blood work ordered. Jul,creening for prostate cancer (ICD-10 - Z12.5) Blood work ordered. Jul,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) In house A1C reading of 11.8, an increase from 11.4 at last check. Therefore I did discuss startingthe patient on trulicity and check to see if insurance will cover the jigar or dexcom. I did provide samples of the trulicity. Jul,Weight loss (ICD-10 - R63.4) Patient presents in the office with a 12 pound weight loss from last visit. [employer] Other 01-19-2022 Evaluation note* Encounter Date Diagnosis Assessment Notes Treatment Notes Treatment Clinical Notes Jun, Diabetic nephropathy (ICD-10 - E 11.21) [employer] Other Consult note Author Amina Fagan [facility] HospitalNote Date/TimeMarch 2024 2:18pm[place] [address] Nephrology Consult Note Signed Patient: Myra Pickard SR MR#: [id number] : 1965 Acct:[id number] Age/Sex: 59 / M Adm Date: 5 Loc: Room: [address] [place] [address] Type: ADM IN Attending Dr: Kevon Viera [...] system review is negative today [facility] Medical History Chronic obstructive pulmonary disease, unspecified [...] mass Atrial fibrillation 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 Simon Hernández [...] 07/12/23[History Confirmed 08/11/24] flash glucose scanning reader (LiveReyle Jigar 2 [place]) #1 ea 12/28/23 [Rx Confirmed 08/11/24] flash [...] 32 gauge x 5/32 (Comfort EZ Pen [place]) #100 ea 04/15/24 [Rx Confirmed 08/11/24] hydroxyzine [...] 25 Mg Tablet) 25 mg PO HS [facility] Stop: 08/11/25 21:59 Aspirin (Aspirin 81 [...] 1,000 mls @ 125 mls/hr IV .Q8H [facility] Stop: 08/11/25 07:14 Last Admin: 08/11/24 11:51 Dose: 125 mls/hr Insulin Aspart (Insulin Aspart 300 Units/3 Ml) 0 units SUBCUT TID.WM.HS [facility]; Protocol Stop: 08/11/25 07:59 Last Admin: 08/11/24 13:40 Dose: Not Given Ipratropium [place] (Ipratropium [place] 0.5 Mg/2.5 Ml Vial.Neb) 0.5 mg INHALATION [...] 0.4 Mg Cap.Er.24h) 0.4 mg PO BID [facility] Stop: 08/11/25 08:59 Last Admin: 08/11/24 09:13 Dose: 0.4 mg Tizanidine HCl (Tizanidine 4 Mg Tablet) 4 mg PO QHS [facility] Stop: 08/11/25 21:59 Exam Physical Exam [...] Appearance Clear Urine pH 5.5 Ur Specific [place] 1.024 Urine Protein Negative Urine Glucose (UA) 500 H Urine Ketones Negative Urine Occult Blood Negative Urine Nitrite Negative Ur Leukocyte Esterase Negative Radiology Impressions Impressions - last 24 hours: Impressions Chest X-Ray 08/11/24 04:22 IMPRESSION: No acute process. Impression dictated by: Sudeep Lind M.D.08/11/2024 10:06 AM Dictation Location: [place] [address] 08/11/24 04:22 IMPRESSION: No acute [...] Sudeep Lind M.D.08/11/2024 10:06 AM Dictation Location: [place] [address] Any impression(s) listed above is documentation that [...] concern Documented By: Amina Fagan MD 08/11/24 9716 Signed By: <Electronically signed by Amina Fagan MD> 08/11/24 1413 [facility] Work Phone: [place] [address] Cardiology Consult Note Signed Patient: Myra Pickard SR MR#: [id number] : 1965 Acct:[id number] Age/Sex: 59 / M Adm Date: 5 Loc: 4 Room: [address] [place] [address] Type: ADM INOo Attending Dr: Abdullahi Canchola DO Copies to: DO Pascale Guzman MD, [facility] Abdullahi Canchoal, DO~ Cardiology HPI History of Present Illness [...] post right below-knee amputation February 2024 in [place]. He has COPD followed by pulmonary medicine in [place]. 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 Simon Hernández [...] 07/12/23[History Confirmed 10/10/24] flash glucose scanning reader (FreeStyle Jigar 2 [place]) #1 ea 12/28/23 [Rx Confirmed 10/10/24] flash [...] 32 gauge x 5/32 (Comfort EZ Pen [place]) #100 ea 04/15/24 [Rx Confirmed 10/10/24] hydroxyzine [...] Lymph # (Auto) 2.0 2.0 (1.00-4.8) x10E3/uL [place] # (Auto) 0.8 0.9 H (0.0-0.8) x10E3/uL [...] RCA, nuclear stress test February 2024 in [place] was normal Plan: Continue aggressive risk factors modifications, tobacco cessation, dual antiplatelet therapy, high intensity statin Code(s): I25.10 - Atherosclerotic heart disease of telida coronary artery without angina pectoris Documented By: Pascale Arnold MD, [facility] 5 0947 Signed By: 10/11/24 0956 [facility] Jo[facility] Powell [facility] March 06, 2024 4:23pmNote Date/TimeOct2023 3:58pmPro[place] [address] Discharge Summary Signed Patient: Myra Pickard SR MR#: [id number] : 1965 Acct:[id number] Age/Sex: 58 / M Adm Date: 4 Loc: Room: [address] [place] [address]: João Powell MD Copies to: [...] hisEF or any recent echo on chart) diabeticneuropathy status post right BKA recently at [facility]. He presents today with episodes of [...] patient blood pressure was in the 70s (systolic) , and his sugar was low however did [...] 1 L bolus of NS. Hewas not tachycardic.His CBC showed hemoglobin 7.8 which is a [...] details. Patient will go to home with homehealth. He is clinically and hemodynamically stable to [...] Instructions: As directed (DME) FreeStyle Jigar 2 [place] Misc See Rx Instructions .ROUTE Qty: 1 [...] I could not feel any collection or swelling,left lower extremity showing signs of neuropathy/claudication with poor hair distribution and faintDP and PT pulses Neuro: Alert and oriented [...] % (Auto) N/A, Lymph % (Auto) N/A, [place] % (Auto) N/A, Eos % (Auto) N/A, Baso % (Auto) N/A, Nucleat RBC Rel Count N/A, Neut # (Auto) N/A, Lymph # (Auto) N/A, [place] # (Auto) N/A, Eos # (Auto) N/A, Baso # (Auto) N/A, Lymphocytes % 18, Monocytes % 8, Eosinophils % 1, Basophils % 1, Segmented Neutrophils 72 H, Platelet Estimate Normal, Large Platelets Slight, Plt Morphology Comment N/A, RBC Morphology N/A, Polychromasia Slight,Hypochromasia Slight, Anisocytosis Marked, Microcytosis Slight, Tear Drop Cells Slight, PHA Creatinine Clear 62.24, Sodium 137, Potassium 4.2, Chloride 107, Carbon Dioxide 24.3, Anion Gap 9.9, BUN 17, Creatinine 1.42 H, Est GFR (CKD-EPI) 57.276, Glucose 99, Calcium 8.7, Phosphorus 3.2, Magnesium 1.6 L, Total Bilirubin 0.4, AST 14, ALT 11, Alkaline Phosphatase 101, Total Protein 6.1 L, Albumin 3.3L, Globulin 2.8, Albumin/Globulin Ratio 1.2 03/06/24 06:44: POC Glucose 128 03/05/24 20:27: POC Glucose 151 03/05/24 16:18: POC Glucose 106 Documented By: João Powell MD 03/06/24 1557 Signed By: <Electronically signed by João Powell MD> 03/06/24 1628 [facility] Work Phone: Discharge summary Author Kevon Viera [facility] HospitalNote Date/TimeMarch 2024 2:39pm[place] [address] Discharge Summary Signed Patient: Myra Pickard SR MR#: [id number] : 1965 Acct:[id number] Age/Sex: 59 / M Adm Date: 5 Loc: Room: [address] [place] [address]: Kevon Viera MD Copies to: [...] (DME) pen needle, diabetic [Comfort EZ Pen [place]] 32 gauge x 5/32 needle See Rx [...] 100 5RF Rx Instructions: As directed (DME) [email or web address].comStyle Jigar 2 Sensor Kit See Rx Instructions .Route Qty: 1 0RF Rx Instructions: As directed (DME) FreeStyle Jigar 2 [place] Misc See Rx Instructions .Route Qty: 1 [...] <Electronically signed by Kevon Viera MD> 08/13/24 1434 [facility] Work Phone: [place] [address] Discharge Summary Signed Patient: Myra Pickard MR#: [id number] : 1965 Acct:[id number] Age/Sex: 59 / M Adm Date: 5 Loc: 4 Room: 6C5001-[address]: Abdullahi Canchola DO Copies to: DO Abdullahi Guzman, ~ Providers Date of Discharge: 10/11/24 Discharging Provider: Abdullahi Canchola Primary Care Provider: Teresa Lynch Consults: 10/10/24 18:25 Consult to Cardiology Routine Comment: Consulting Provider: [facility], [facility] Reason For Exam: chest pain Has [...] (DME) pen needle, diabetic [Comfort EZ Pen [place]] 32 gauge x 5/ needle See Rx Instructions .Route Qty: 100 [...] Instructions: As directed (DME) FreeStyle Jigar 2 [place] Misc See Rx Instructions .Route Qty: 1 0RF Rx Instructions: As directed Discontinued valsartan-hydrochlorothiazide [Diovan HCT] 160-12.5 mg tablet 1 tab PO DAILY Follow Up: [facility] [Outside] (Once Insurance approves outpatient Stress [...] % (Auto) 58.3, Lymph % (Auto) 25.5, [place] % (Auto) 10.9, Eos % (Auto) 4.0, Baso % (Auto) 1.3, Nucleat RBC Rel Count 0.1, Neut # (Auto) 4.6, Lymph # (Auto) 2.0, [place] # (Auto) 0.9 H, Eos # (Auto) [...] Neut % (Auto) 61.8, Lymph % (Auto)23.4, [place] % (Auto) 9.5, Eos % (Auto) 4.0, Baso % (Auto) 1.3, Nucleat RBC Rel Count 0.2, Neut # (Auto) 5.3, Lymph # (Auto) 2.0, [place] # (Auto) 0.8, Eos # (Auto) 0.3, [...] 10/11/24 13 40 Signed By: 10/11/24 1358 [facility] Author Abdullahi Canchola [facility] HospitalNote Date/TimeMay 2024 1:58pmPro[place] [address] Discharge Summary Signed Patient: Myra Pickard MR#: [id number] : 1965 Acct:[id number] Age/Sex: 59 / M Adm Date: 5 Loc: Room: [address] [place] [address]: Abdullahi Canchola DO Copies to: DO Abdullahi Guzman DO~ Providers Date of Discharge: 10/11/24 Discharging Provider: Abdullahi Canchola Primary Care Provider: Teresa Lynch Consults: 10/10/24 18:25 Consult to Cardiology Routine Comment: Consulting Provider: [facility], [facility] Reason For Exam: chest pain Has [...] (DME) pen needle, diabetic [Comfort EZ Pen [place]] 32 gauge x 5/32 needle See Rx [...] Instructions: As directed (DME) FreeStyle Jigar 2 [place] Misc See Rx Instructions .Route Qty: 1 0RF Rx Instructions: As directed Discontinued valsartan-hydrochlorothiazide [Diovan HCT] 160-12.5 mg tablet 1 tab PO DAILY Follow Up: [facility] [Outside] (Once Insurance approves outpatient Stress Test [...] % (Auto) 58.3, Lymph % (Auto) 25.5, [place] % (Auto) 10.9, Eos % (Auto) 4.0, Baso % (Auto) 1.3, Nucleat RBC Rel Count 0.1, Neut # (Auto) 4.6, Lymph # (Auto) 2.0, [place] # (Auto) 0.9 H, Eos # (Auto) [...] Neut % (Auto) 61.8, Lymph % (Auto)23.4, [place] % (Auto) 9.5, Eos % (Auto) 4.0, Baso % (Auto) 1.3, Nucleat RBC Rel Count 0.2, Neut # (Auto) 5.3, Lymph # (Auto) 2.0, [place] # (Auto) 0.8, Eos # (Auto) 0.3, [...] signed by Abdullahi Canchola DO> 10/11/24 1358 [facility] Work Phone: Evaluation + Plan note Future Appointments Appointment Date:12/21/2022 11:00:00 AM Scheduled Provider: Location:[facility] Appointment Type:URO Nurse Visit Appointment Date:01/30/2023 10:30:00 AM Scheduled Provider:Yeyo ROWE MD Location:[facility] Appointment Type:URO Office Visit [facility] Evaluation + Plan note Future Appointments Appointment Date:01/30/2023 10:15:00 AM Scheduled Provider:Yeyo ROWE MD Location:[facility] Appointment Type:URO Office Visit [facility] Evaluation + Plan note Future Appointments Appointment Date:02/01/2023 10:00:00 AM Scheduled Provider: Location:[facility] Appointment Type:Urology CALL PAT FT Appointment Date:02/08/2023 09:00:00 AM Scheduled Provider: Location:[facility] Appointment Type:Urology FT Appointment Date:02/14/2023 09:15:00 AM Scheduled Provider: Location:[facility] Appointment Type:Urology FT [facility] evaluation + Plan note Future Appointments Appointment Date:02/14/2023 09:15:00 AM Scheduled Provider: Location:[facility] Appointment Date:03/20/2023 08:45:00 AM Scheduled Provider: Location:[facility] Appointment Type:URO Nurse Visit Appointment Date:04/05/2023 08:00:00 AM Scheduled Provider:Yeyo ROWE MD Location:[facility] Appointment Type:URO Office Visit [facility] + Plan note Future Appointments Appointment Date:05/03/2023 08:45:00 AM Scheduled Provider:Yeyo ROWE MD Location:[facility] Appointment Type:URO Office Visit [facility] Evaluation + Plan note Future Appointments Appointment Date:07/03/2023 10:15:00 AM Scheduled Provider:Yeyo ROWE MD Location:[facility] Appointment Type:URO Office Visit [facility] evaluation + Plan note Future Appointments Appointment Date:10/23/2023 09:30:00 AM Scheduled Provider:Mike Montes MD [facility] Appointment Type:Vascular Follow Up (FT) [facility] noteNo InformationNort CopyRightNow Other Evaluation noteNo assessment information available [facility] Work Phone: Evaluation note* Diagnosis History of PTCA Postsurgical percutaneous transluminal coronary angioplasty status Hyperlipidemia, unspecified hyperlipidemia type Encounter for pre-operative cardiovascular clearance Former smoker Personal history of tobacco use, presenting hazards to health documented in this encounter [facility] Work Phone: Evaluation note* Diagnosis Onset Date Resolution Status Anemia acuteAtrial fibrillationacuteChronic back painacuteCigarette nicotine dependence with nicotine-induced disorderacute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acuteGERD (gastroesophageal reflux disease)acute HyperlipidemiaacuteRestless legs syndromeacuteSyncopeacuteCAD (coronary artery disease)chronicChronic kidney diseasechronicDiabeteschronicHypertensionchronic [facility] Work Phone: Evaluation note* Diagnosis Onset Date Resolution Status Anemia acuteAtrial fibrillationacuteChronic back painacuteCigarette nicotine dependence with nicotine-induced disorderacute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acuteGERD (gastroesophageal reflux disease)acute HyperlipidemiaacuteRestless legs syndromeacuteSyncopeacuteCAD (coronary artery disease)chronicChronic kidney diseasechronicDiabeteschronicHypertensionchronic Altered mental statusacuteHypothermiaacute [facility] Work Phone: Evaluation note* Diagnosis Onset Date Resolution Status Anemia acuteAtrial fibrillationacuteChronic back painacuteCigarette nicotine dependence with nicotine-induced disorderacute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acuteGERD (gastroesophageal reflux disease)acute HyperlipidemiaacuteRestless legs syndromeacuteSyncopeacuteCAD (coronary artery disease)chronicChronic kidney diseasechronicDiabeteschronicHypertensionchronic Altered mental statusacuteAnemiaacuteGERD (gastroesophageal reflux disease)acute HyperbilirubinemiaacuteHypothermiaacuteLFT elevationacuteRestless legs syndrome acuteSyncopeacute [facility] Work Phone: Evaluation note* Diagnosis Onset Date Resolution Status Anemia acuteAtrial fibrillationacuteChronic back painacuteCigarette nicotine dependence with nicotine-induced disorderacute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acuteGERD (gastroesophageal reflux disease)acute HyperlipidemiaacuteRestless legs syndromeacuteCAD (coronary artery disease) chronicChronic kidney diseasechronicDiabeteschronicHypertensionchronicSyncope resolvedAltered mental statusacuteAnemiaacuteGERD (gastroesophageal reflux disease)acuteLFT elevationacuteRestless legs syndromeacuteSyncoperesolved Abnormal finding on imagingacuteGERD (gastroesophageal reflux disease)acute [facility] Work Phone: Evaluation note* Diagnosis Onset Date Resolution Status Anemia acuteAtrial fibrillationacuteChronic back painacuteCigarette nicotine dependence with nicotine-induced disorderacute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acuteGERD (gastroesophageal reflux disease)acute HyperlipidemiaacuteRestless legs syndromeacuteCAD (coronary artery disease) chronicChronic kidney diseasechronicDiabeteschronicHypertensionchronicSyncope resolvedAltered mental statusacuteAnemiaacuteGERD (gastroesophageal reflux disease)acuteLFT elevationacuteRestless legs syndromeacuteSyncoperesolved Abnormal finding on imagingacuteGERD (gastroesophageal reflux disease)acute Diabetesacute [facility] Work Phone: Evaluation note* Diagnosis Shortness of breath documented in this encounter [facility] Work Phone: Evaluation note* Diagnosis Abscess of right foot- Primary Cellulitis and abscess of foot, except toes Status post partial amputation of right foot [place] Type 2 diabetes mellitus with stage 4 chronic kidney disease, without long-term current use of insulin ([facility] Atherosclerosis of telida coronary artery of telida heart without angina pectoris Bacterial sepsis ([facility] Bacteremia Other acute osteomyelitis of right foot ([facility] Chronic obstructive pulmonary disease, unspecified COPD type ([facility] Cigarette smoker Tobacco use disorder BPH with obstruction/lower urinary tract symptoms Gastroesophageal reflux disease, unspecified whether esophagitis present Restless leg syndrome Restless legs syndrome (RLS) Hyperlipidemia, unspecified hyperlipidemia type Carpal tunnel syndrome, unspecified laterality Heart failure, unspecified HF chronicity, unspecified heart failure type ([facility]) [facility] Diagnosis Diarrhea, unspecified type- Primary Other acute osteomyelitis of right foot ([facility] Status post partial amputation of right foot ([facility] Chronic obstructive pulmonary disease, unspecified COPD type ([facility]) Abscess of right foot Cellulitis and abscess of foot, except toes Type 2 diabetes mellitus with stage 4 chronic kidney disease, without long-term current use of insulin (CMS-HCC) [facility] Diagnosis Status post partial amputation of right foot ([facility] Primary Pressure ulcer of right ankle, stage 3 ([facility]) Other abnormalities of gait and mobility Delayed surgical wound healing of foot amputation stump ([facility]) documented in this encounter 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* Diagnosis Peripheral arterial disease ([facility] Primary Unspecified peripheral vascular disease Delayed surgical wound healing of foot amputation stump ([facility]) Other abnormalities of gait and mobility Status post partial amputation of right foot ([facility]) Pressure ulcer of right ankle, stage 3 ([facility]) Type 2 diabetes mellitus with stage 4 chronic kidney disease, without long-term current use of insulin ([facility]) documented in this encounter 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 ([facility] Primary Status post partial amputation of right foot ([facility] Primary Osteomyelitis of right foot, unspecified type ([facility]) Muscle weakness (generalized) Other abnormalities of gait and mobility Chronic obstructive pulmonary disease, unspecified COPD type ([facility]) Peripheral arterial disease ([facility]) Unspecified peripheral vascular disease 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 note* Diagnosis Status post partial amputation of right foot ([facility])- Primary Other abnormalities of gait and mobility Leg edema Edema Primary hypertension Unspecified essential hypertension Hypotension due to drugs Other iatrogenic hypotension Critical limb ischemia of right lower extremity with gangrene ([facility]) Diabetic polyneuropathy associated with type 2 diabetes mellitus ([facility]) documented in this encounter 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Evaluation note* Diagnosis Diabetic polyneuropathy associated with type 2 diabetes mellitus ([facility] Primary Disorientation Other general symptoms Other abnormalities of gait and mobility Status post partial amputation of right foot ([facility] Atherosclerosis of telida coronary artery of telida heart without angina pectoris Atrial fibrillation ([facility]) Primary hypertension Unspecified essential hypertension documented in this encounter [facility] SystemEvaluation note* Diagnosis Diabetic polyneuropathy associated with type 2 diabetes mellitus ([facility])- Primary Encounter for orthopedic aftercare following surgical amputation Other abnormalities of gait and mobility Restless leg syndrome Restless legs syndrome (RLS) documented in this encounter 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 SystemEvaluation note* Diagnosis Encounter for orthopedic aftercare following surgical amputation- Primary Cigarette smoker Tobacco use disorder Diabetic polyneuropathy associated with type 2 diabetes mellitus ([facility]) Other abnormalities of gait and mobility Muscle spasm Spasm of muscle documented in this encounter [facility] SystemEvaluation note* Diagnosis PAD (peripheral artery disease) ([facility] Primary Unspecified peripheral vascular disease documented in this encounter [facility] SystemEvaluation [facility]* Diagnosis Encounter for orthopedic aftercare following surgical amputation- Primary Other abnormalities of gait and mobility BPH with obstruction/lower urinary tract symptoms Diabetic polyneuropathy associated with type 2 diabetes mellitus ([facility]) Atherosclerosis of telida coronary artery of telida heart without angina pectoris Heart failure, unspecified HF chronicity, unspecified heart failure type ([facility]) Primary hypertension Unspecified essential hypertension Peripheral arterial disease ([facility]) Unspecified peripheral vascular disease Chronic obstructive pulmonary disease, unspecified COPD type ([facility]) Gastroesophageal reflux disease, unspecified whether esophagitis present Muscle weakness (generalized) documented in this encounter [facility]* Diagnosis Onset Date Resolution Status Admit Date Acute kidney injury superimposed on CKD acuteMarch 2024 5:39amDiabetesacuteMarch 2024 5:39amHypocalcemiaacute March 2024 5:39amLeft sided numbnessacuteMarch 2024 5:39amParesthesias [facility] 20[facility] 5:39amHypertensionchronicMarch 2024 5:39am [facility] Work Phone: Evaluation note* Diagnosis Chest pain, unspecified type documented in this encounter [facility] Work Phone: Evaluation note* Diagnosis 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 ([facility])- Primary Poor circulation Unspecified circulatory system disorder Heavy tobacco smoker >10 cigarettes per day 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 ([facility])- Primary Cigarette smoker motivated to quit 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 ([facility])- Primary Cigarette smoker Tobacco use disorder 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 ([facility])- Primary Hx of right BKA ([facility]) Cigarette smoker Tobacco use disorder documented in this encounter [facility] physical note Author Mike Burleson [facility] HospitalNote Date/TimeNovember 2023 1:50pm [place] [address] Gastroenterology H&P Signed Patient: Myra Pickard MR#: [id number] : 1965 Acct:[id number] Age/Sex: 58 / M Adm Date: 4 Loc: Room: Type: [facility] Attending Dr: Mike Burleson [...] <Electronically signed by Mike Burleson MD> 04/23/24 7587 [facility] Work Phone: History and physical note Author Marge Andino [facility] HospitalNote Date/TimeMarch 2024 7:24[place] [address] Hospitalist H&P Signed Patient: Myra Pickard SR MR#: [id number] : 1965 Acct:[id number] Age/Sex: 59 / M Adm Date: 5 Loc: 3T Room: [address] [place] [address] Type: ADM IN Attending Dr: Kevon Viera MD Copies to: Teresa Lynch,MD Marge North MD~ HPI DATE OF EXAMINATION: 08/11/24 HISTORY [...] imaging studies reviewed EKG personally reviewed by ms side this rhythm with PACs, without ischemic changes, with QTc 485 Previous records in the computer system reviewed CT scan of the head/CT of the head and neck without acute findings -official report pending [facility] Medical History Chronic obstructive pulmonary disease, unspecified [...] mass Atrial fibrillation 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 Simon Hernández [...] 07/12/23[History Confirmed 08/11/24] flash glucose scanning reader ([employer] Jigar 2 [place]) #1 ea 12/28/23 [Rx Confirmed 08/11/24] flash [...] 32 gauge x /32 ([employer] [place]) #100 ea 04/15/24 [Rx Confirmed 08/11/24] hydroxyzine [...] 04:15 Lymph % (Auto) N/A 08/11/24 04:15 Hardeman % (Auto) N/A 08/11/24 04:15 Eos % (Auto) N/A 08/11/24 04:15 Baso % (Auto) N/A 08/11/24 04:15 Nucleat RBC Rel Count N/A 08/11/24 04:15 Neut # (Auto) N/A 08/11/24 04:15 Lymph # (Auto) N/A 08/11/24 04:15 Hardeman # (Auto) N/A 08/11/24 04:15 Eos # [...] signed by Marge Andino MD> 08/11/24 0724 [facility] Work Phone: [place] [address] Hospitalist H&P Signed Patient: Myra Pickard SR MR#: [id number] : 1965 Acct:[id number] Age/Sex: 59 / M Adm Date: 5 Loc: 4 Room: 9C1360-1 Type: ADM INOo Attending Dr: Abdullahi Canchola [...] reports multivessel PCI'saround the time of at [facility]. He hasstent information cards that are indicative [...] trend cardiac markers, routine echocardiogram. [facility] Medical History Hypokalemia Hypocalcemia Hypomagnesemia Vitamin B12 [...] mass Atrial fibrillation 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 Simon Hernández [...] 07/12/23[History Confirmed 10/10/24] flash glucose scanning reader ([employer] Jigar 2 [place]) #1 ea 12/28/23 [Rx Confirmed 10/10/24] flash [...] 32 gauge x 5/32 (Comfort EZ [place]) #100 ea 04/15/24 [Rx Confirmed 10/10/24] hydroxyzine [...] % (Auto) 23.4 % (.) 10/10/24 15:42 Hardeman % (Auto) 9.5 % (.) 10/10/24 15:42 Eos % (Auto) 4.0 % (.) 10/10/24 15:42 Baso % (Auto) 1.3 % (.) 10/10/24 15:42 Nucleat RBC Rel Count 0.2 /100 WBC (0-0.5) 10/10/24 15:42 Neut # (Auto) 5.3 x10E3/uL (1.8-7.7) 10/10/24 15:42 Lymph # (Auto) 2.0 x10E3/uL (1.00-4.8) 10/10/24 15:42 Hardeman # (Auto) 0.8 x10E3/uL (0.0-0.8) 10/10/24 15:42 [...] DO 10/10/24 18 33 Signed By: 10/11/[address] [place], [place] [address]History and physical note Author Abdullahi Canchola [facility] HospitalNote Date/TimeMay 2024 1:58[place] [address] Hospitalist H&P Signed Patient: Myra Pickard SR MR#: [id number] : 1965 Acct:[id number] Age/Sex: 59 / M Adm Date: 5 Loc: Room: [address] [place] [address] Type: ADM INOo Attending Dr: Abdullahi Canchola [...] reports multivessel PCI'saround the time of at [facility]. He hasstent information cards that are indicative [...] trend cardiac markers, routine echocardiogram. [facility] Medical History Hypokalemia Hypocalcemia Hypomagnesemia Vitamin B12 [...] mass Atrial fibrillation 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 Simon Hernández [...] 07/12/23[History Confirmed 10/10/24] flash glucose scanning reader ([employer] Jigar 2 [place]) #1 ea 12/28/23 [Rx Confirmed 10/10/24] flash [...] 32 gauge x 5/32 (Comfort EZ [place]) #100 ea 04/15/24 [Rx Confirmed 10/10/24] hydroxyzine [...] % (Auto) 23.4 % (.) 10/10/24 15:42 Hardeman % (Auto) 9.5 % (.) 10/10/24 15:42 Eos % (Auto) 4.0 % (.) 10/10/24 15:42 Baso % (Auto) 1.3 % (.) 10/10/24 15:42 Nucleat RBC Rel Count 0.2 /100 WBC (0-0.5) 10/10/24 15:42 Neut # (Auto) 5.3 x10E3/uL (1.8-7.7) 10/10/24 15:42 Lymph # (Auto) 2.0 x10E3/uL (1.00-4.8) 10/10/24 15:42 Hardeman # (Auto) 0.8 x10E3/uL (0.0-0.8) 10/10/24 15:42 [...] <Electronically signed by Abdullahi Canchola DO> 10/11/24 1355 [facility] Work Phone: History general Narrative - Reported* Type Description Date Medical History TYPE II DIABETES Medical HistoryCHRONIC BACK PAIN OLD INJURY,Medical HistoryHTNMedical History FIBROMYALGIAMedical [id number]-yrdqrt testMedical Historymild heart attack Medical Historyheart cathMedical Historycardiac stents placed 07/26/15 Dr. Bowie Medical Nyqswlz4010/10/2016 PSA (0.5)Medical HistoryPVDMedical HistoryAngioplasty & stenting LT LE 09/27/[address]/ Dr. SealsMedical History01/25/19 Colonoscopy Medical Historycigarette smokerMedical HistoryCLAUDICATIONSurgical History [id number] HistoryBIL CARPAL TUNNEL COVMCGP5785Yqgndhez HistoryBIL CATARACT EXTRATION AND LENS [id number] Dmlaxzhbjoidkjw7586Gpwwqckw HistoryCarpal Tunnel Release BilaterallySurgical HistoryLense Replacement Bilateral EyesSurgical Historyradio waves in L3,4,5 lower back LT side06/06/11 Surgical History3 heart stents placed11/2013Surgical Historyupper GI12/2013 Surgical Historyheart cath done07/2014Surgical HistoryHeart stent placed by Dr. Bowie at [facility]07/26/15urgical HistoryLeft knee arthroscopy11/2015Surgical History carpal tunnel release, right and left08/2016Surgical Historyhydrocele repair 08/2016Surgical Historycardiac cath [facility]/02/18urgical HistoryLt LE iliac DSA, angioplasty & stenting09/27/2018Surgical HistoryLeft Angiogram with one stent - Dr. Boss07/2020Hospitalization HistoryDeep Depression, Anxiety; [facility] and hypercapnic respirtory failure11/11/16Hospitalization Historychest pain [facility] 04/02/18 [employer] Other History of Present illness NarrativeReturns in [...] impact on blood pressure and diabetes [facility] Work Phone: History of Present [...] He denies medication side effects. [facility] 600 DO Work Phone: History of Present [...] medication regimen. He denies medication side effects. formerly [facility] 250 DO Work Phone: Hospital course Narrative No data available for this section [facility] Hospital Discharge instructions No data available for this section [facility] Hospital Discharge instructionsAmbulatory Orders* Referral to Pain Management Time Frame: 08/30/24, Location: [facility] Work Phone: InstructionsNot on [...] available for this section [facility] Progress note Author Kevon Viera [facility] HospitalNote Date/TimeMarch 2024 1:[address] [address] Progress Note Signed Patient: Myra Pickard SR MR#: [id number] : 1965 Acct:[id number] Age/Sex: 59 / M Adm Date: 5 Loc: 3T Room: [address] [place] [address] Type: ADM IN Attending Dr: Kevon Viera [...] signed by Kevon Viera MD> 08/11/24 1321 [facility] Work Phone: Progrbte note Author Maurice Francis [facility] HospitalNote Date/TimeMarch 2024 11:[address] [address] Nephrology Progress Note Signed Patient: Myra Pickard SR MR#: [id number] : 1965 Acct:[id number] Age/Sex: 59 / M Adm Date: 5 Loc: 3T Room: [address] [place] [address] Type: ADM IN Attending Dr: Kevon Viera [...] Skin: No rashes , warm to touch 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: Awake,Alert, 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 Musculoskeletal: No swelling [...] 25 Mg Tablet) 25 mg PO HS [facility] Stop: 08/11/25 21:59 Last Admin: 08/11/24 [...] 5,000 Unit/Ml Vial) 5,000 unit SUBCUT Q12HR [facility] Stop: 08/11/25 08:59 Last Admin: 08/12/24 08:27 Dose: 5,000 unit Hydralazine HCl (Hydralazine 20 Mg/Ml Vial) 10 mg IV-PUSH Q4H PRN PRN Reason: if SBP > 185 Stop: 08/11/25 05:38 Potassium Chloride/Sodium Chloride (0.9 % Nacl-20 Meq Kcl) 1,000 mls @ 125 mls/hr IV .Q8H [facility] Stop: 08/11/25 07:14 Last Admin: 08/12/24 08:26 Dose: 125 mls/hr Ferric Sodium Gluconate Complex 250 mg/ Sodium Chloride 270 mls @ 135 mls/hr IVQAM [facility] Stop: 08/14/24 10:59 Last Admin: 08/12/24 09:19 Dose: 135 mls/hr Insulin Aspart (Insulin Aspart 300 Units/3 Ml) 0 units SUBCUT TID.[facility]; Protocol Stop: 08/11/25 07:59 Last Admin: 08/12/24 08:27 Dose: Not Given Ipratropium [place] (Ipratropium [place] 0.5 Mg/2.5 Ml Vial.Neb) 0.5 mg INHALATION QID.RESP [facility] Stop: 08/11/25 07:59 Last Admin: 08/12/24 08:51 Dose: 0.5 mg Isosorbide Mononitrate (Isosorbide Mononitrate 24hr Er 30 Mg Tab.Er.24h) 30 mg PO DAILY [facility] Stop: 08/11/25 08:59 Last Admin: 08/12/24 08:27 Dose: 30 mg Metoprolol Tartrate (Metoprolol Tartrate 100 Mg Tablet) 100 mg PO BID [facility] Stop: 08/11/25 08:59 Last Admin: 08/12/24 [...] signed by Maurice Francis MD> 08/12/24 1147 [facility] Work Phone: Progress note Author Kevon Viera [facility] HospitalNote Date/TimeMarch 2024 3:16[place] [address] Hospitalist Progress Note Signed Patient: Myra Pickard SR MR#: [id number] : 1965 Acct:[id number] Age/Sex: 59 / M Adm Date: 5 Loc: 3T Room: [address] [place] [address] Type: ADM IN Attending Dr: Kevon Viera [...] 1 units TID.WM.[facility] SATISH Administration Protocol Ipratropium [place] 0.5 mg 08/11/24 08:00 08/12/24 12:31 Ipratropium [place] 0.5 Mg/2.5 Ml Vial.Neb INHALATION 08/11/25 07:59 [...] <Electronically signed by Kevon Viera MD> 08/12/24 [facility] Work Phone: Progress note Author Maurice Francis [facility] HospitalNote Date/TimeMarch 2024 11:06[place] [address] Nephrology Progress Note Signed Patient: Myra Pickard SR MR#: [id number] : 1965 Acct:[id number] Age/Sex: 59 / M Adm Date: 5 Loc: Room: 9X7543-6 Type: ADM IN Attending Dr: Kevon Viera [...] Skin: No rashes , warm to touch 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: Awake,Alert, 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 Musculoskeletal: No swelling [...] 80 Mg Tablet) 80 mg PO DAILY [facility] Stop: 08/11/25 08:59 Last Admin: 08/13/24 08:25 Dose: 80 mg Budesonide/Formoterol Fumarate (Budesonide/Formoterol 160-4.5 Mcg 60 Puff/6 Gm Hfa.Aer.Ad) 2 puff INHALATION BID SATISH Stop: 08/11/25 08:59 Last Admin: 08/13/24 07:54 Dose: 2 puff Calcium Carbonate (Calcium Carbonate/Vitamin D3 500 Mg/200 Unit Tablet) 2 tab PO TID.WITH.MEALS [facility] Stop: 08/11/25 07:59 Last Admin: 08/13/24 [...] 5,000 Unit/Ml Vial) 5,000 unit SUBCUT Q12HR [facility] Stop: 08/11/25 08:59 Last Admin: 08/13/24 08:25 Dose: 5,000 unit Hydralazine HCl (Hydralazine 20 Mg/Ml Vial) 10 mg IV-PUSH Q4H PRN PRN Reason: if SBP > 185 Stop: 08/11/25 05:38 Ferric Sodium Gluconate Complex 250 mg/ Sodium Chloride 270 mls @ 135 mls/hr IVQAM [facility] Stop: 08/14/24 10:59 Last Admin: 08/12/24 09:19 Dose: 135 mls/hr Insulin Aspart (Insulin Aspart 300 Units/3 Ml) 0 units SUBCUT TID.WM[facility]; Protocol Stop: 08/11/25 07:59 Last Admin: 08/13/24 08:25 Dose: 1 units Ipratropium [place] (Ipratropium [place] 0.5 Mg/2.5 Ml Vial.Neb) 0.5 mg INHALATION QID.RESP [facility] Stop: 08/11/25 07:59 Last Admin: 08/13/24 07:54 Dose: 0.5 mg Isosorbide Mononitrate (Isosorbide Mononitrate 24hr Er 30 Mg Tab.Er.24h) 30 mg PO DAILY [facility] Stop: 08/11/25 08:59 Last Admin: 08/13/24 08:25 Dose: 30 mg Metoprolol Tartrate (Metoprolol Tartrate 100 Mg Tablet) 100 mg PO BID [facility] Stop: 08/11/25 08:59 Last Admin: 08/13/24 08:25 Dose: 100 mg Pantoprazole Sodium (Pantoprazole 40 Mg Tablet.Dr) 40 mg PO BID [facility] Stop: 08/11/25 08:59 Last Admin: 08/13/24 08:25 Dose: 40 mg Pregabalin (Pregabalin 75 Mg Capsule) 75 mg PO TID [facility] Stop: 02/07/25 08:59 Last Admin: 08/13/24 08:25 Dose: 75 mg Ropinirole HCl (Ropinirole 1 Mg Tablet) 1 mg PO TID [facility] Stop: 08/11/25 08:59 Last Admin: 08/13/24 [...] weeks Documented By: Maurice Francis MD 08/13/24 8272 Signed By: <Electronically signed by Maurice Francis MD> 08/13/24 110 [facility] Work Phone: Reason for visit Narrative* CV Imaging (Routine) - AuthorizedSpecialtyDiagnoses / ProceduresReferred By ContactReferred To Contact Diagnoses Chest pain, unspecified type Procedures Nuclear Stress Test CHG MYOCARDIAL SPECT MULTIPLE STUDIES Pascale Arnold MD [address] [place] [address], [address] [address] Phone: tel: fax: [address] [address] Phone: tel: Referral IDStatusReasonStart DateExpiration DateVisits RequestedVisits [id number]/9/20255/9/202651 [facility] Work Phone: Regjep for visit Narrative* CV Imaging (Routine) - AuthorizedSpecialtyDiagnoses / ProceduresReferred By ContactReferred To Contact Diagnoses Chest pain, unspecified type Procedures Nuclear Stress Test CHG MYOCARDIAL SPECT MULTIPLE STUDIES Pascale Arnold MD [address] [place] [address] 2, [address] [address] Phone: tel: fax: [facility] [address] [place] [address] Phone: tel: Referral Rajiv DateExpiration DateVisits RequestedVisits [id number]/9/20255/9/202651 [facility] Work Phone: Chief Complaint MYRA PICKARD is [...] Bypass graft mechanical comp lication, sequela: Mother Status:ActiveFamily history of diabetes mellitus: Mother(V18.0, Z83.3) Status:ActiveFamily history of hypertension: Mother(V17.49, Z82.49) Status:Active Unknown Family Member Name Dates Details Bypass graft mechanical comp lication, sequela: Mother Status:ActiveFamily history of diabetes mellitus: Mother(V18.0, Z83.3) Status:ActiveFamily history of hypertension: Mother(V17.49, Z82.49) Status:Active Unknown Family Member Name Dates Details Bypass graft mechanical comp lication, sequela: Mother Status:ActiveFamily history of diabetes mellitus: Mother(V18.0, Z83.3) Status:ActiveFamily history of hypertension: Mother(V17.49, Z82.49) Status:Active Relationship Condition Age at Onset Recorded Date/T yary Not Specified Heart disease Unknown Peripheral arterial diseaseUnknownUnknown Family Member Name Dates Details Bypass graft mechanical comp lication, sequela: Mother Status:ActiveFamily history of diabetes mellitus: Mother(V18.0, Z83.3) Status:ActiveFamily history of hypertension: Mother(V17.49, Z82.49) Status:Active Unknown Family Member Name Dates Details Bypass graft mechanical comp lication, sequela: Mother Status:ActiveFamily history of diabetes mellitus: Mother(V18.0, Z83.3) Status:ActiveFamily history of hypertension: Mother(V17.49, Z82.49) Status:Active Relationship Condition Age at Onset Recorded Date/T yary Not Specified Heart disease Unknown Peripheral arterial diseaseUnknownfatherDeceasedUnknowngrandparentDeceased UnknownNot SpecifiedDeceasedUnknownHeart diseaseUnknown Relationship Condition Age at Onset Recorded Date/T yary mother Heart disease Unknown Peripheral arterial diseaseUnknownfatherDeceasedUnknowngrandparentDeceased UnknownmotherDeceasedUnknownHeart diseaseUnknown Reason for Referral SpecialtyDiagnoses / ProceduresReferred By ContactReferred To Contact Diagnoses 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 ([facility]) Procedures Vas art doppler lwr bilat mult lev/PVR Mike Montes MD [address], [place] [address] Referral IDStatusReasonStart DateExpiration DateVisits RequestedVisits [id number] 1SpecialtyDiagnoses / ProceduresReferred By ContactReferred To ContactRadiology Diagnoses 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 ([facility]) Procedures CT angiogram abdominal aorta with runoff Mike Montes MD [address], [address] [address] Referral IDStatusReasonStart DateExpiration DateVisits RequestedVisits [id number] Review1Referral IDStatusReasonStart DateExpiration DateVisits RequestedVisits [id number] Review 1Referral IDStatusReasonStart DateExpiration DateVisits RequestedVisits [id number] Review1Specialty Diagnoses / ProceduresReferred By ContactReferred To ContactCardiology Diagnoses Shortness of breath Procedures Transthoracic Echo Complete DC ECHO TTHRC R-T 2D W/WOM-MODE COMPL SPEC&COLR D Bernard De La Cruz MD [address] [place] [address] Referral IDStatusReasonStart DateExpiration DateVisits RequestedVisits [id number] Perform Procedure /[id number] / ProceduresReferred By ContactReferred To Contact Diagnoses Encounter for pre-operative cardiovascular clearance Procedures ECG 12 Lead Raulito Inman MD [address] [place] [address], [address] [address] Referral IDStatusReasonStart DateExpiration DateVisits RequestedVisits [id number]/21/20245/21/283336DytntibubUxefadbkk / Procedures Referred By ContactReferred To ContactCardiology Diagnoses History of PTCA Procedures Follow Up In Cardiology Raulito Inman MD [address] [place] [address], [address] [address] Referral IDStatusReasonStart DateExpiration DateVisits RequestedVisits [id number]/21/20245/ Reason CANCELLED consult and treat; previous patient of Dr. Sharpe last seen in 2020; persisting intractable headaches Diagnosis 1 Acute intractable he adache, unspecified headache type (R51.9) Referral Organization [facility] Referring Provider First Name Teresa Referring Provider Last Name Rory Referring Provider Specialty Family Prac dale Referred Organization [facility] Referred Provider Lyssa Sharpe Referred Address [address] [place], [place],[address] Referred Provider Specialty Neurology Referral Priority Routine General Notes [facility] 023 10:19:08 AM >Received today. [facility] request us to fill out their form and attach to Referral and send it to them and they will call patient to schedule. 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) Referral Organization [facility] Referring Provider First Name Teresa Referring Provider Last Name Rory Referring Provider Specialty [facility] Jono hunter Referred Organization [facility] Referred Provider Doris Barnes Referred Address [address],[place], [place],[address] Referred Provider Specialty Nurse Jono calderon Referral Priority Routine Referral Appointment Date 2022-03-31 General Notes [facility] 022 02:28:10 PM >Received today and sent P2P [facility] 02/16/2022 07:50:21 AM >Patient has [...] Amb Documentation Amb Documentation Amb Documentation Lightheaded LightheadedReason for VisitAnemia Atrial fibrillation Chronic back pain Cigarette nicotine dependence with nicotine-induced disorder 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 GERD (gastroesophageal reflux disease) Hyperlipidemia Restless legs syndrome Syncope CAD (coronary artery disease) Chronic kidney disease Diabetes Hypertension Chief Complaint Unknown Amb Documentation Amb Documentation Amb Documentation Amb Documentation Lightheaded Lightheaded Altered / Change Mental StatusReason for VisitAnemia Atrial fibrillation Chronic back pain Cigarette nicotine [...] Change Mental Status Altered / Change Mental StatusReason for VisitAnemia Atrial fibrillation Chronic back pain Cigarette nicotine [...] / Change Mental Status discuss for EGD/Abnormal imagingReason for VisitAnemia Atrial fibrillation Chronic back pain Cigarette nicotine [...] for EGD/Abnormal imaging Amb Documentation hosp follow upReason for VisitAnemia Atrial fibrillation Chronic back pain Cigarette nicotine [...] w medication regimen Darrell h 2024 8:37am Chest pain October 10, 2024 [...] 8:37am CAD (coronary artery disease) October 10, 6:25pm History of below-knee amputation of righ [...] November 05, 2024 1:08 pm Advance Directives Advance Directive Response Recorded Date/ Time Advance Directives No June 09, 2017 5:49pm Advance Directive Response Recorded Date/ Time Advance Directives No June 09, 2017 4:49pm Date ActivatedDate InactivatedComments11/07/2023 4:31 PMDate ActivatedDate InactivatedComments11/07/2023 4:31 PM11/14/2023 9:31 PMDate ActivatedDate InactivatedComments11/07/2023 4:31 PM11/14/2023 9:31 PM Summary Purpose Additional Source Comments REASON FOR VISIT (unrecogniz ed section and content) ReasonCommentsFollow-up9 months POC lower angio [facility] ASAPSpecialtyDiagnoses / ProceduresReferred By ContactReferred To Contact Diagnoses Encounter for pre-operative cardiovascular clearance Procedures ECG 12 Lead Raulito Inman MD [facility] [facility] [address], [address] [address] Ref[facility]Status[facility] DateExpiration DateVisits RequestedVisits [id number] / Procedures Referred By ContactReferred To ContactCardiology Diagnoses Shortness of breath Procedures Transthoracic Echo Complete DC ECHO TTHRC R-T 2D W/WOM-MODE COMPL SPEC&COLR D Bernard De La Cruz MD [facility] [facility] [address], [address] [address] [facility]Stat[facility] DateExpiration DateVisits RequestedVisits [id number] Perform Procedure /[id number] PatientPoor Circulation - Referral from Dr. Soto - No appt available in [place] until 11/02/2023; patient is having right leg and foot pain at a 10 right now since surgery 2 weeks ago SpecialtyDiagnoses / ProceduresReferred By ContactReferred To ContactVascular Surgery Diagnoses Poor circulation Paula Soto, DPM [address] [place] [address] [facility] [address] [place] [address] Referral IDStatus[facility] DateExpiration DateVisits RequestedVisits [id number] Review Specialty Services Required /[id number] limb ischemia of right lower extremity with gangreFollow up on testing completed in [place] Check insession ReasonCommentsAngioplasty RLE follow up - procedure at [facility]. Yolanda Critical limb ischemia of right lower extremity with gangreReasonOnset Date CommentsBlood Sugar Zxxqsln1203/22/2024High blood sugarsReasonCommentsP/O R [facility] [place] [facility] [place]shia, well approximatedReasonCommentstesting [facility] 2 months ago rt legEst pt Right BKAPAD (peripheral artery disease) (CMS-HCC) I73.9no testing Care Teams (unrecognized sec tion and content) Team Status: Active Member Role Status Dates Teresa Lynch DO Primary Care Provider Active Team Status: Inactive Member Role Status Dates Teresa Lynch DO Primary Care Provider Active Sta rt: July 23, 2024 End: July 23, 2024JoVidal Allen ProviderActiveStart: July 23, 2024 End: July 23, 2024 Team Status: Active Member Role Status Dates Teresa Lynch DO Primary Care Provide r, Attending Provider Active Start: July 24, 2024 Team Status: Inactive Member Role Status Dates Teresa Lynch DO Primary Care Provider Active Sta rt: August 11, 2024 End: August 13, 2024Cesar Barrios Jr ProviderActiveStart: August 11, 2024 End: August 13, 2024Francheska Grace ProviderActiveStart: August 11, 2024 End: August 13, 2024Vidal Urbina ProviderActiveStart: August 11, 2024 End: August 13Cara Gomes ProviderActiveStart: August 11, 2024 End: August 13, 2024 Team Status: Active Member Role Status Dates Teresa Lynch DO Primary Care Provider Active Sta rt: August 11, 2024 Cesar Barrios Jr ProviderActiveStart: August 11, 2024 Francheska Grace ProviderActiveStart: August 11, 2024 Cara Urbina ProviderActiveStart: August 11, 2024 Vidal Stewart Provider, Other ProviderActiveStart: August 11, 2024 Team Status: Inactive Member Role Status Dates Teresa Lynch DO Primary Care Provide r, Attending Provider Active Start: August 30, 2024 End: August 30, 2024 Team Status: Active Member Role Status Dates Teresa Lynch DO Primary Care Provider Active Sta rt: July 23, 2024 Negro Warnerey , MDAttending ProviderActiveStart: July 23, 2024 Team Status: Active Member Role Status Dates Teresa Lynch DO Primary Care Provider Active Sta rt: August 11, 2024 Cesar Barrios Jr ProviderActiveStart: August 11, 2024 Marge Andino MDAdmit Provider, Attending ProviderActiveStart: August 11, 2024 Team Status: Inactive Member Role Status Dates Teresa Lynch DO Primary Care Provider Active Sta rt: May 07, 2024 End: May 07Sachi Gomesending ProviderActiveStart: May 07, 2024 End: May 07, 2024 [...] Active Start: March 04, 2024 End: March 06Yeni Gordon [facility] ProviderActiveStart: March 04, 2024 End: March 06, 2024Mofelicity Morejonl , MDAdmit Provider, Attending ProviderActive Start: March 04, 2024 End: March 06, 2024StCara Jha ProviderActiveStart: March 04, 2024 End: March 06Cara Dolan ProviderActiveStart: March 04, 2024 End: March 06, 2024 Team Status: Active Member Role Status Dates Kait Dan MD Emergency Provider Active Start: March 05, 2024 Pablo [facility] ProviderActiveStart: March 05, 2024 João Powell , MDAdmit Provider, Other ProviderActiveStart: March 05, 2024 Lyssa Sharpe MDOther ProviderActiveStart: March 05, 2024 Mike Burleson MDAttending Provider, Other ProviderActiveStart: March 05, 2024 Team Status: Inactive Member Role Status Dates Teresa Lynch DO Primary Care Provider Active Sta rt: March 08, 2024 End: March 13, 2024Yonas Hutton ProviderActiveStart: March 08, 2024 End: March 13, 2024Mofelicity Powell , MDAdmit ProviderActiveStart: March 08, 2024 End: March 13Jasson Valdez ProviderActiveStart: March 08, 2024 End: March 13Cara Jansen ProviderActiveStart: March 08, 2024 End: March 13Cara Dolan ProviderActiveStart: March 08, 2024 End: March 13rukhsana Ervin MDAttending ProviderActiveStart: March 08, 2024 End: March 13, 2024 Team Status: Active Member Role Status Dates Teresa Lynch DO Primary Care Provider Active Sta rt: March 09, 2024 Yonas Hutton ProviderActiveStart: March 09, 2024 Mohwindy Morejonl , MDAdmit Provider, Other ProviderActiveStart: March 09, 2024 Jasson Comer ProviderActiveStart: March 09, 2024 Vidal Oates Provider, Other ProviderActiveStart: March 09, 2024 Team Status: Active Member Role Status Dates Teresa Lynch DO Primary Care Provider Active Sta rt: March 10, 2024 Yoans Hutton ProviderActiveStart: March 10, 2024 João Powell MDAdmit Provider, Other ProviderActiveStart: March 10, 2024 Luther Dozier DOOther ProviderActiveStart: March 10, 2024 Job James MDOther ProviderActiveStart: March 10, 2024 Mike Burleson , MDAttending Provider, Other ProviderActiveStart: March 10, 2024 Team Status: Inactive Member Role Status Dates Teresa Lynch DO Primary Care Provider Active Sta rt: March 21, 2024 End: March 21moncho Del Real APRNAtagustina ProviderActiveStart: March 21, 2024 End: March 21, 2024 [...] Emergency Provider Active Start: March 03, 2024 Yeni Valiente Care ProviderActiveStart: March 03, 2024 João Powell MDAdmit Provider, Attending ProviderActiveStart: March 03, 2024 Team Status: Inactive Member Role Status Dates Teresa Lynch DO Primary Care Provider Active Nahomi Dockery ProviderActive Team Status: Inactive Member Role Status Dates Teresa Lynch DO Primary Care Provider Active Teresa Lynch DO CHCAttending ProviderActive Team Status: Inactive Member Role Status Dates Teresa Lynch DO Primary Care Provider Active Sta rt: July 12, 2023 End: July 12, 2023Cesar Harley ProviderActiveStart: July 12, 2023 End: July 12, 2023 Team Status: Active Member Role Status Dates Teresa Lynch DO Primary Care Provider Active Sta rt: July 26, 2023 Sharifa Escobar ProviderActiveStart: July 26, 2023 Team Status: Active Member Role Status Dates Teresa Lynch DO Primary Care Provider Active Sta rt: July 31, 2023 CARSON Dockery-CAttending Provider, Referring ProviderActiveStart: July 31, 2023 Team Status: Active Member Role Status Dates Teresa Lynch DO Primary Care Provide r, Attending Provider Active Start: August 03, 2023 Team Status: Active Member Role Status Dates Tersea Lynch , DO Primary Care Provide r, [...] Provider Active Sta rt: August 08, 2023 Anum Gonzalez ProviderActiveStart: August 08, 2023 Team Status: Active Member [...] Sta rt: September 21, 2023 End: September 20ziyad Soto DPM MSAttending ProviderActiveStart: September 21, 2023 End: September 21, 2023 Team Status: Active Member Role Status Dates Teresa Lynch DO Primary Care Provide r, Attending Provider Active Start: September 21, 2023 Team Status: Active Member Role Status Dates Teresa Lynch DO Primary Care Provider Active Sta rt: September 27, 2023 Anum Colon ProviderActiveStart: September 27, 2023 Team Status: Active Member Role Status Dates Teresa Lynch DO Primary Care Provider Active Sta rt: September 30, 2023 [facility] ProviderActiveStart: September 30, 2023 Team Status: Active Member Role Status Dates Teresa Lynch DO Primary Care Provider Active Sta rt: October 01, 2023 Sachi Carrending ProviderActiveStart: October 01, 2023 Team Status: Active Member Role Status Dates Teresa Lynch DO Primary Care Provider Active Sta rt: October 02, 2023 Vidal Carr ProviderActiveStart: October 02, 2023 Team Status: Inactive Member Role Status Dates Paula Soto DPM MS Attending Provider Active Start: October 02, 2023 End: October 02, 2023 Team Status: Active Member Role Status Dates Teresa Lynch DO Primary Care Provider Active Sta rt: October 03, 2023 Vidal Crar ProviderActiveStart: October 03, 2023 Team Status: Active Member [...] Provider Active Sta rt: October 06, 2023 Team MemberRelationshipSpecialtyStart DateEnd Date Teresa Lynch DO [facility] - Rbpmdkw30/13/19 Team Status: Active Member Role Status Dates Fely Nguyen DO Attending Provider Active Start: November 15, 2023 Team Status: Active Member Role Status Dates Hernan Crook Attending Provider Active Start: November 26, 2023 Team Status: Active Member Role Status Dates Teresa Lynch DO Primary Care Provider Active Sta rt: March 08, 2024 Yonas Hutotn ProviderActiveStart: March 08, 2024 Mohamad Andre , MDAdmit Provider, Attending ProviderActiveStart: March 08, 2024 Team Status: Active Member Role Status Dates Teresa Lynch DO Primary Care Provider Active Sta rt: March 29, 2024 Anum Gonzalez ProviderActiveStart: March 29, 2024 Team Status: Inactive Member Role Status Dates Teresa Lynch DO Primary Care Provide r, Attending Provider Active Start: April 04, 2024 End: April 04, 2024 Team Status: Active Member Role Status Dates Teresa Lynch DO Primary Care Provider Active Sta rt: April 19, 2024 Anum Valles ProviderActiveStart: April 19, 2024 Team Status: Inactive Member Role Status Dates Teresa Lynch DO Primary Care Provider Active Sta rt: April 23, 2024 End: April 23Vidal Dolan ProviderActiveStart: April 23, 2024 End: April 23, 2024 Team Status: Active Member Role Status Dates Teresa Lynch DO Primary Care Provider Active Sta rt: April 23, 2024 Vidal Grant Provider, Other ProviderActiveStart: April 23, 2024 Team Status: Inactive Member Role Status Dates Teresa Lynch DO Primary Care Provider Active Sta rt: April 24, 2024 End: April 24, 2024JoVidal Allen ProviderActiveStart: April 24, 2024 End: April 24, 2024Team MemberRelationshipSpecialtyStart DateEnd Date Teresa Lynch DO PCP - Capzztp42/13/19 Namita Mercer LPN Care ManagerCase [facility]12/25/23Team MemberRelationshipSpecialtyStart DateEnd Date Teresa Lnych MD [address] [place] [address] [phone] PCP - External PCP03/05/23 Team Status: Active Member Role Status Dates Teresa Lynch DO Primary Care Provider Active Sta rt: October 10, 2024 Jez J Deborah Dominguez ProviderActiveStart: October 10, 2024 Abdullahi Canchola DOAdmit Provider, Attending ProviderActiveStart: October 10, 2024 Elle Monique RNOther ProviderActiveStart: October 10, 2024 Danyell Schmidt DOOther ProviderActiveStart: October 10, 2024 Pascale Arnold MDOther ProviderActiveStart: October 10, 2024 Raulito Inman MDOther ProviderActiveStart: October 10, 2024 Bernard De La Cruz MDOther ProviderActiveStart: October 10, 2024 Cash Rosales MDOther ProviderActiveStart: October 10, 2024 Dolores Pickard APRNOther ProviderActiveStart: October 10, 2024 Jeanie Conde MDOther ProviderActiveStart: October 10, 2024 Andrew Montes MDOther ProviderActiveStart: October 10, 2024 Shaheed Barboza MDOther ProviderActiveStart: October 10, 2024 Maryann Pierre , GUARD RAIL INSTALLER-BCOther ProviderActiveStart: October 10, 2024 Team Status: Inactive Member Role Status Dates Teresa Lynch DO Primary Care Provider Active Sta rt: October 10, 2024 End: October 11Deborha Hoover ProviderActiveStart: October 10, 2024 End: October 11, 2024Brian George Provider, Attending ProviderActive Start: October 10, 2024 End: October 11, 2024 Team Status: Inactive Member Role Status Dates Teresa Lynch DO Primary Care Provide r, Attending Provider Active Start: October 26, 2024 End: October 26Cara Gomes ProviderActiveStart: October 26, 2024 End: October 26fabi Francis MDOther ProviderActiveStart: October 26, 2024 End: October 26, 2024 Team Status: Inactive Member Role Status Dates Teresa Lynch DO Primary Care Provide r, Attending Provider Active Start: November 05, 2024 End: November 05, 2024 Team Status: Inactive Member Role Status Dates Teresa Lynch DO Primary Care Provider Active Sta rt: November 05, 2024 End: November 05Vidal Gomes ProviderActiveStart: November 05, 2024 End: November 05, 2024Team MemberRelationshipSpecialtyStart DateEnd Date Teresa Lynch DO [address] [place] [facility] [address] [facility]/04/24Team MemberRelationshipSpecialtyStart DateEnd Date Teresa Lynch DO [address] [place] [facility] [place] [address] [facility] - [facility]11/04/24Team MemberRelationshipSpecialtyStart DateEnd Date Teresa Lynch DO [address] [facility], [place] [phone] PCP - Generalmi Medicine11/04/24 Goals (unrecognized section and content) Goals may [...] section and content) DATE CREATED AUTHOR 11/11/2022 [facility] DATE CREATED AUTHOR AUTHOR'S ORGANIZ ATION 01/27/2023 [facility] DATE CREATED AUTHOR AUTHOR'S ORGANIZ ATION 02/16/2023 [facility] DATE CREATED AUTHOR AUTHOR'S ORGANIZ ATION 02/16/2023 [facility] DATE CREATED AUTHOR AUTHOR'S ORGANIZ ATION 10/22/2023 [facility] DATE CREATED AUTHOR AUTHOR'S ORGANIZ ATION 11/16/2023 [facility] DATE CREATED AUTHOR AUTHOR'S ORGANIZ ATION 11/25/2023 [facility] DATE CREATED AUTHOR AUTHOR'S ORGANIZ ATION 01/10/2024 [facility] DATE CREATED AUTHOR AUTHOR'S ORGANIZ ATION 02/13/2024 [facility] DATE CREATED AUTHOR AUTHOR'S ORGANIZ ATION 02/14/2024 [facility] DATE CREATED AUTHOR AUTHOR'S ORGANIZ ATION 02/15/2024 [facility] DATE CREATED AUTHOR AUTHOR'S ORGANIZ ATION 02/16/2024 [facility] DATE CREATED AUTHOR AUTHOR'S ORGANIZ ATION 02/17/2024 [facility] DATE CREATED AUTHOR AUTHOR'S ORGANIZ ATION 02/18/2024 [facility] DATE CREATED AUTHOR AUTHOR'S ORGANIZ ATION 02/19/2024 [facility] DATE CREATED AUTHOR AUTHOR'S ORGANIZ ATION 02/20/2024 [facility] DATE CREATED AUTHOR AUTHOR'S ORGANIZ ATION 02/21/2024 [facility] DATE CREATED AUTHOR AUTHOR'S ORGANIZ ATION 02/22/2024 [facility] DATE CREATED AUTHOR AUTHOR'S ORGANIZ ATION 02/23/2024 [facility] DATE CREATED AUTHOR AUTHOR'S ORGANIZ ATION 02/24/2024 [facility] DATE CREATED AUTHOR AUTHOR'S ORGANIZ ATION 05/29/2024 [facility] DATE CREATED AUTHOR AUTHOR'S ORGANIZ ATION 11/08/2024 [facility] DATE CREATED AUTHOR AUTHOR'S ORGANIZ ATION 12/27/2024 [facility] DATE CREATED AUTHOR AUTHOR'S ORGANIZ ATION 02/09/2025 [facility] DATE CREATED AUTHOR AUTHOR'S ORGANIZ ATION 02/28/2025 [facility] DATE CREATED AUTHOR AUTHOR'S ORGANIZ ATION 03/08/2025 [facility] FOR RECORDS PERTAINING TO PATIENTS [...] BE BASED ON THE PRIMARY CLINICAL RECORDS. [facility] [employer] [facility]. provides no warranty or guarantee of the accuracy or completeness of information in this document.
[2025-03-27 07:37] LABS: Estimated GFR (African America 28 (>=60 mL/min/1.73m^2); Estimated GFR (Non-African Ame 23 (>=60 mL/min/1.73m^2)
== END 2025-03-27 07:13 | disposition home or self-care (01) ==
LOC: CARD 07:12
PROVIDERS: Pathology Anatomic Pathology & Clinical Pathology; PCP Family Medicine; Visit Provider Student in an Organized Health Care Education/Training Program
DX: I70.262 Atherosclerosis of native arteries of extremities with gangrene, left leg (principal); E61.1 Iron deficiency; E55.9 Vitamin D deficiency, unspecified; N18.9 Chronic kidney disease, unspecified; D63.1 Anemia in chronic kidney disease
CPT/HCPCS: 36415; 80069; 82306; 82565; 82607; 82728; 82746; 83540; 83550; 83735; 83970; 84550; 85027; 93923

== ENCOUNTER 2025-03-27 08:14 | Outpatient (OUT) | payer OTHER, SELFPAY ==
--- OUTSIDE RECORDS SUMMARY | 2025-03-27 08:19 | XMS_ITS | Clinical Summary ---
Author Organization [employer] tem Address [id number] [address] [place] [address] Care Team Providers Care Mortuary Technician Name Role Phone Unavailable Primary Care Provider Unavailabl e Allergies Active AllergyReactionsCriticalityNoted DateCommentsAcetaminophenVomitingLow 07/31/2023 Other Reaction(s): Vomiting Isosorbide DinitrateOther (See Comments)Low08/04/2014 Headache LatexDermatitis,Itching,RikoHpi5803/27/2023Oxycodone-Jufdgisfhpicj80/10/2017 PenicillinsAnaphylaxis,DjudrYitf10/02/0035Slhjqejjyctp50/10/2017 Darvocet Medications MedicationSigDispense QuantityRefillsLast FilledStart DateEnd DateStatus [...] a week.07/12/2023ctive Active Problems ProblemNoted DateDiagnosed DateCigarette lsxsqi3802/28/2025 Assessment & Plan (02/28/2025 5:59 PM EDT): Counseled him on smoking cessation for at least 4 minutes Critical limb ischemia of left lower extremity with utocnjxx50/25/2025 Assessment & Plan (02/28/2025 6:00 PM EDT): CTA aorta with runoff PVR Continue aspirin 81 mg atorvastatin 80 mg and Plavix 75 mg. Hx of right BKA02/27/2025ltered mental nhxxgo0803/15/20249651Ywlxih28/11/2024trial citqdqxwpqjn03/11/2024igarette nicotine dependence with nicotine-induced uhuopwxq44/11/8467Gjajxzb24/11/2024hronic back pain03/15/2024Encounter for orthopedic aftercare following surgical zwbxigfzij50/25/2024Muscle spasm 02/28/2024igarette skwwva0801/18/2024 Assessment & Plan (01/18/2024 9:04 AM EDT): Counseled him on smoking cessation at length. He is willing to quit. Symptomatic etajjndvkub68/29/2024iabetic polyneuropathy associated with type 2 diabetes ksonvntz03/21/2024hest pain in adult11/10/2023hronic kidney disease 11/10/2023rescendo cvbwhp8811/10/2023iabetic nephropathy associated with secondary diabetes eoxtrvhg88/07/2978Yqjlqpsdyejp48/07/2024Leg edema11/10/2023 Ogpyxxudt89/27/6197Gbzjavufppvy36/27/2024 Overview (10/30/2023): Will need to get back off opioids Encourage use of tylenol and pregabalin Neck pain10/30/2023Head ache10/30/2023Gross dultmddqn99/27/2024Heart attack 10/30/2023Heart zjeido0310/30/20237999Wysoujjkq33/27/5476Khjiyd45/27/2024Urinary gypokcvbp80/27/2024Muscle weakness (generalized)10/30/2023Other abnormalities of gait and vyffbdof66/27/2024eripheral arterial jfpbcbg2510/30/2023therosclerosis of [place]ahu[place] coronary artery of [place]ahu[place] heart without angina ghtxvjem77/03/2024 Pyogenic inflammation of bone10/06/2023hronic obstructive pulmonary disease 10/06/2023igarette smoker motivated to quit10/06/2023 Assessment & Plan (11/30/2023 9:19 AM EDT): Counseled on smoking cessation for at least 3 minutes Assessment & Plan (10/18/2023 8:52 AM EDT): Counseled in length willing to quit. BPH with obstruction/lower urinary tract sgfoutwa57/03/2024Gastroesophageal reflux iwwiygv0610/06/2023estless leg zyuznkni99/03/2024Heart nrjocyd8910/06/2023 Vosmwaor14/10/5423Tusesocuseykxm82/25/2021arpal tunnel syndrome, right upper limb1Paresthesia and pain of both upper qnrikeicluu59/20/2021 Overview (03/15/2024): Last Assessment & Plan: *06/14/2023 [...] to urinary issues. Paresthesia of bilateral legs09/22/2020Mixed chhgjobqpanaoh64/12/2016 Overview (10/30/2023): Cont home atorva Sleep apnea08/04/20144617Vyosjqtbbdko10/03/2014 Overview (10/30/2023): Continue home amlodipine 10mg QD Metoprolol 50mg bid Lisinopril on hold Monitor BP regularly Resolved Problems ProblemNoted DateDiagnosed DateResolved DateDelayed surgical wound healing of foot amputation stumpressure ulcer of right ankle, stage 3 ritical limb ischemia of right lower extremity with ucsghrhs72 Assessment & Plan (01/18/2024 9:03 AM EDT): Right below-knee amputation. Will do it here at [place]. Assessment & Plan (12/21/2023 8:57 AM EDT): We did iliofemoral endarterectomy and femoral above-knee bypass. He has some residual tibial occlusive disease. I discussed with him doing right lower extremity angiogram and intervention. [facility] do this close to [facility] at [facility]. Assessment & Plan (10/18/2023 8:32 AM EDT): PVR and CTA abdomen and plevis with runoff Abscess of right footStatus post partial amputation of right footType 2 diabetes mellitus with stage 4 chronic kidney disease, without long-term current use of nknxvif60/acterial bsiuhi51/12/2023 Encounters DateTypeDepartmentCare GqorCfwgvqqpqol22/09/2025Telephone [facility] [address] [place] [address] Jess Aguilar CMA 02/27/2025 10:50 AM EDTOffice Visit [facility] [address] [place] [address] Padmini Montes MD 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 ([facility]) (Primary Dx); Hx of right BKA (CMS-HCC); Cigarette jxbinz5402/27/20251368Kaoqvm74/31/2025Telephone [facility] [address] [place] [address] Baylee Chu CMA from Last 3 Months Immunizations ImmunizationAdministration DatesNext DueInfluenza, Im Trivalent Preservative 01/14/2019Influenza, Injectable, quadrivalent (PF)04/02/2018,03/07/2016 Influenza, Jecnvyqsnfz68/12/2019Pneumococcal Hblivxnbqqzrfv73/19/2016 Social History Tobacco UseTypesPacks/DayYears UsedDateSmoking Tobacco: Every YxeEsgbrfqkbz586.5 Started: 10/05/1981Smokeless Tobacco: Never Tobacco Cessation:Ready to Q uit: Not Asked; Counseling Given: Not Answered Alcohol UseStandard Drinks/WeekCommentsNot Currently0 (1 standard drink = 0.6 oz pure alcohol)[facility] UtilitiesAnswerDate RecordedIn the past 12 months has [...] more drinks on one occasion?Never11/07/2023HQ-2 AnswerDate RecordedTotal Stott563RAPARE - TransportationAnswerDate RecordedIn the past 12 months, [...] as a part of a household?No11/07/2023 ChildcareAnswerDate ToacnxiuSkdenknfdUqhzonp35/10/2019EmploymentAnswerDate YorfetstPybfknktfvAvrrpyq97/10/2019Hunger ScreeningAnswerDate RecordedWithin the past 12 months we [...] Last Filed Vital Signs Vital SignReadingTime TakenCommentsBlood Wejvwbbr265/8109 10:51 AM EDT Xmlaf7393 10:51 AM GGXEziievzwvey35.7 ??C (98 ??F)03/19/2024 5:26 PM EDT Respiratory Gxbe751203/19/2024 5:26 PM EDTOxygen Pqdduhjfic18%02/27/2025 10:51 AM EDTInhaled Oxygen Concentration--Lsouym70.9 kg (207 lb)02/27/2025 10:51 AM EDT Rerlvg201.9 cm (6')02/27/2025 10:51 AM EDTBody Mass Index28.0702/27/2025 10:51 AM EDT Plan of Treatment DateTypeDepartmentCare Team (Latest Contact Info)Pbmdpmrbemg81/30/2025 11:00 AM EDTOffice Visit [facility] [address] [place] [address] Padmini Montes MD [address], [address] [phone] MaintenanceDue DateLast DoneCommentsDiabetic Ophthalmology Exam1965 Statin Use: Aboxxescfdtekd56/27/1966Statin Use: Ibkhzxgo48/27/1966Adult BMI Follow Up Plan1983Diabetic Foot Exam1983DTaP,Tdap and Td Vaccines (1 - Tdap)1984Zoster (Shingles) Vaccine (1 of 2)2015Depression Zqnfbxwjv53/OVID-19 Vaccine ( - season)2025 11/13/2020, 10/23/2020Influenza Xpafizn71/05/2019, 01/14/2019, 04/02/2018, Additional history existsTobacco Tfnccbufd53/26/288212/dult BMI Ogybructi30 Goals GoalPatient Goal TypeAssociated ProblemsRecent ProgressPatient-Stated?Author Patient is planning to transition back to SNF at discharge. Chandrika Weber LSW Note: Evaluation of progress towards goal: Patient is planning to transition back to SNF at discharge. Medical Devices ImplantedTypeAreaManufacturerDevice IdentifierShelf Expiration DateModel / Serial / LotGraft Vsc 50cm 6mm [place] Thnwl Hep Propaten Ptfe Rem Rng - [id number] - [id number] Implanted:Qty: 1 on 11/08/2023 [facility]: [id number] / [id number] / Description:RIGHT FEMORAL ARTERYStent Vsc Epic 10mm 100mm 120cm 6fr Rdpq Otw Slf Xpd Gw - [id number] Implanted:Qty: 1 on 11/07/2023 by [facility]entBO[facility]ON SCIENTIFIC/PERIPHERAL [id number]/ [id number] / / [id number] Insurance MemberSubscriberPlan / Payer (Effective 2024-Present)Name:Solomon Feldman Relation to Subscriber:SelfName:Solomon Feldman Payer ID:[id number] (NAIC) Group ID:[id number] Type:Not on file Address: [facility] [address] [place] [phone] Advance Directives * Full Code (Latest Code Status on File) Date ActivatedDate InactivatedComments11/07/2023 4:31 PM11/14/2023 9:31 PM
--- OUTSIDE RECORDS SUMMARY | 2025-03-27 08:19 | XMS_ITS | Encounter Summary ---
Author Organization [employer] tem Address [id number] [address] [place] [address] Care Team Providers Care Livestock Judging Coach Name Role Phone Unavailable Primary Care Provider Unavailabl e Encounter Details DateTypeDepartmentCare Team (Latest Contact Info)Etanlpgxwsf45/09/2025Telephone [facility] [place] [address] [place] [phone] Jess Aguilar CMA Social History Tobacco UseTypesPacks/DayYears UsedDateSmoking Tobacco: Every SouQayxnbpgru696.5 Started: 10/05/1981Smokeless Tobacco: NeverAlcohol UseStandard Drinks/Week CommentsNot Currently0 (1 standard drink = 0.6 oz pure alcohol)[facility] Utilities AnswerDate RecordedIn the past 12 months has the [employer], gas, oil, or water [employer] threatened to shut off services in your [...] as a part of a household?No4ChildcareAnswerDate Recorded OczuvwwjaUbbdidl35/10/2019EmploymentAnswerDate RecordedEmploymentUnknown 11/12/2018Hunger ScreeningAnswerDate RecordedWithin the past 12 months we worried whether our food would run out before we got money to buy more.Never True02/29/2024Within the past 12 months the food we bought just didn't last and we didn't have money to get more.Never True02/29/2024Sex and Gender Information ValueDate RecordedSex Assigned at BirthNot on fileLegal PczPqaw6701/06/2015 1:04 PM EDTGender IdentityNot on fileSexual OrientationNot on filedocumented as of this encounter Miscellaneous Notes * Telephone Encounter - Jess Aguilar CMA - 03/13/2025 1:10 PM EDT Lm for patient to call and get his testing done so that we do not have to cancel his appt on the . documented in this encounter Plan of Treatment DateTypeDepartmentCare Team (Latest Contact Info)Ujsfavqdfht42/30/2025 11:00 AM EDTOffice Visit [facility] [place] [address] [place] [address] Padmini Montes MD [address], [address] [phone] documented as of this encounter Goals GoalPatient [...]
--- OUTSIDE RECORDS SUMMARY | 2025-03-27 08:20 | XMS_ITS | Clinical Summary ---
Author Organization [facility] Address [address] [place] [address] Care Team Providers Care Commercial Loan Coordinator Name Role Phone Fraknlin Link Nickolas BRICENO Unavailable [phone] Jenaro Vaaldez DO Primary Care Provider [phone] Carlos A Bolanos Unavailable [phone] Allergies Active AllergyReactionsCriticalityNoted DateCommentsIsosorbide MononitrateOther: See Criickuh07/02/2015 Headache KaicywtslelUyigjhbiuiu80/02/2014 Medications MedicationSigDispense QuantityRefillsLast FilledStart DateEnd DateStatus metFORMIN [...] ~1.6) who presents as a transfer from [facility] for ongoing evaluation and treatment of [...] today # Disposition: To be transferred to [facility], skilled for acute rehab. Neuro # [...] 5 days) - Continue Vanc and Agustin (LIEUTENANT COLONEL dosing) as well as Acyclovir (for possible [...] Restarted home metoprolol with holding parameters - JIUKN9TYRL - 3, not on AC at this [...] DateObesity, Class I, BMI 30-34.9 E66.904 Mixed jrrzczpzfraanj96/12/2016 Overview (07/28/2015): Cont home atorva Qzseomg5308/04/2014Sleep apnea08/04/2014CAD S/P percutaneous coronary angioplasty 11/05/2013 Overview (03/07/2016): CAD (s/p [place] to mPDA and PLV of RCA in 11/2013 and recent PCI on 07/2015 Plan - asa and plavix - atorva 40 mg (due to drug interaction with ranalazine) - metoprolol 50 mg bid - ranolazine Cpnrpbfxljrl66/03/2014 Overview (02/13/2016): Continue home amlodipine 10mg QD [...] (05/05/2016): plavix Resolved Problems ProblemNoted DateDiagnosed DateResolved CimsHcacviptrqohxg21/03/201610/03/2016 Overview (03/07/2016): At presentation patient had AMS and needed intubation to protect airway as patient had copious secretions. Possible causes: Uremic encephalopathy vs Sepsis vs Cardiogenic shock vs LIEUTENANT COLONEL infection vs LIEUTENANT COLONEL disorder Patient came in with S urea>100 [...] to SNF. Atrial fibrillation with rapid ventricular xvzlzeuv51 Overview (03/07/2016): Patient developed A fib with RVR during early hospitalization. Was HD unstable at time. Uremic. Did not respond to BB or calcium channel lamont. Loaded with amiodarone with resolution. A: Resolved. Not in A fib. Currently on metoprolol for HTN. P: Follow up intermittently with EKG at PCP office Vucyeo88Somnolence Overview (03/07/2016): At presentation patient had AMS and needed intubation to protect airway as patient had copious secretions. Possible causes: Uremic encephalopathy vs Sepsis vs Cardiogenic shock vs LIEUTENANT COLONEL infection vs LIEUTENANT COLONEL disorder Patient came in with S urea>100 [...] Conservative management with PT. Discharge to SNF. Wcjwscjcxzh15Pain of right upper rzrgzjykx84 Overview (02/16/2016): Persistent, reproducible right arm pain. [...] - Avoid nephrotoxins, trend Cr Right leg lnfuuxuu80Unstable syvpxh68 Overview (07/28/2015): Patient is now s/p [place] [...] number is lower riskNot on file05/10/2020Data from: https://www.neighborhoodatlas.medicine.[facility]/. Last address used for calculationNot on file05/10/2020Sex and Gender Information ValueDate RecordedSex Assigned at BirthNot on fileLegal DgqMxki30/02/2012 9:56 AM ESTGender IdentityNot on fileSexual OrientationNot on fileOccupationIndustry Job Start DateJob End DateRetiredNot on fileNot on fileNot on file Last Filed Vital Signs Vital SignReadingTime TakenCommentsBlood Sasztdyr983/7004 9:28 AM EDT Utmff7290 9:28 AM WUGMhqqffademg03.8 ??C (98.3 ??F)03/07/2016 2:00 PM EDTRespiratory Xlpc1219 9:28 AM EDTOxygen Kxmpaaaxuy35%09/11/2017 9:28 AM EDTInhaled Oxygen Concentration--Buhlvd040.2 kg (254 lb)09/11/2017 9:28 AM FSSAhxfsg499.9 cm (6')09/11/2017 9:28 AM EDTBody Mass Index34.45009/11/2017 9:28 AM EDT Plan of Treatment Health MaintenanceDue DateLast DoneCommentsAnxiety Gvomjwunj13/27/1984Depression Ezijvsqfj02/27/1984Hepatitis C Flkeyoarz18/27/1984DTaP,Tdap,Td Vaccine (1 - Tdap)1984CT Wjvrvseulusd92/27/2011Cologuard (FIT-DNA)2010Colonoscopy 2010Colorectal Cancer Vosqywseq04/27/2011Fecal Occult Blood2010 Prostate Cancer Screening Ehyhnxinpi04/27/0844Gnsconhogrobf23/27/2011Shingrix Vaccine (1 of 2)2015Pneumococcal Vaccine: 50+ (2 of 2 - PCV)02/21/2017 02/22/2016Diabetes Wtylirodw11, 03/06/2016, 03/05/2016, Additional history existsLipid Oebznpddj82Covid-19 Vaccine ( season)2025Influenza Vaccine (#1)HIV BkkimmgqyNgppficvg95/24/2016 Procedures Procedure NamePriorityDate/TimeAssociated DiagnosisCommentsCOMPREHENSIVE METABOLIC OPMEBKBRW62/03/2016 7:19 AM EDT HIV 1/2 COMBO WITH REFLEX TO VYCVTUZTXYJWKHDHMDM23/24/2016 9:41 AM EDT LIPID PANEL, JNIUVBEXlgszhm66/11/2016 4:43 AM EDT from Last 3 Months or Most Recently Relevant to Health Maintenance Results * (ABNORMAL) COMP METABOLIC PANEL (03/07/2016 7:19 AM EDT)ComponentValueRef RangeTest MethodAnalysis TimePerformed AtPathologist SignatureProtein, Total 6.76.3 - 8.0 g/dL03/07/2016 8:28 AM [facility] MA[facility] LABORATORYAlbumin 3.2(L)3.9 - 4.9 g/dL03/07/2016 8:28 AM [facility] Calcium9.28.5 - 10.5 mg/dL03/07/2016 8:28 AM [facility] LABORATORYBilirubin, Total0.50.2 - 1.3 mg/dL03/07/2016 8:28 AM [facility] MA[facility] LABORATORYAlkaline Qnlgcbnrxrh366(H)36 - 108 U/L1 8:28 AM [facility] MA[facility] BFHGWDJQIAHIB1086 - 40 U/L1 8:28 AM EDT [facility] MA[facility] LSJHWANEJGIdqjtib598(H)74 - 99 mg/dL03/07/2016 8:28 AM [facility] ZDOBWTBBDWKFV335 - 24 mg/dL03/07/2016 8:28 AM EDT [facility] MAIN LABORATORYCreatinine1.37(H)0.73 - 1.22 mg/dL03/07/2016 8:28 AM [facility] MA[facility] MNYPYDWXIXPhcadl284320 - 144 mmol/L1 8:28 AM [facility] MA[facility] LABORATORYPotassium4.43.7 - 5.1 mmol/L 03/07/2016 8:28 AM [facility] VJKPXILVTIVtcapncm0166 - 105 mmol/L1 8:28 AM [facility] GYGWQXEIRQFE19314 - 30 mmol/L1 8:28 AM [facility] LABORATORYAnion Fdn472 - 18 mmol/L1 8:28 AM [facility] RGBEYXHCHANMC6487 - 54 U/L 03/07/2016 8:28 AM [facility] LABORATORYeGFR->60 03/07/2016 8:28 AM [facility] MA[facility] LABORATORYeGFR-All Other Races55. 03/07/2016 8:28 AM [facility] MAIN LABORATORYComment: eGFR (Estimated GFR) Units [...] Luz HERRERALABORATORY Final ResultPerforming OrganizationAddressCity/State/ZIP CodePhone Number [facility] [address] [place] [address] * HIV 1,2 COMBO (AG/AB) (02/27/2016 9:41 AM EDT)ComponentValueRef RangeTest MethodAnalysis TimePerformed AtPathologist SignatureHIV 12 Combo (Ag/Ab)Non ReactiveNon Dhagjvap00/24/2016 8:39 PM [facility] Comment: (NOTE) HIV Information: ??[place] Rev. Code 3701.243(E): This information has been [...] AM EDT Narrative Authorizing ProviderResult TypeResult StatusDaniel [place] DOLABORATORYFinal ResultPerforming OrganizationAddressCity/State/[facility] CodePhone Number [facility] [address] [place] [address] * (ABNORMAL) LIPID PANEL BASIC (02/14/2016 4:43 AM EDT)ComponentValueRef Range Test MethodAnalysis TimePerformed AtPathologist QmiuwciwtTiwinhbdxezq431(H)30 - 149 mg/dL02/14/2016 6:48 AM [facility] MA[facility] LABORATORYCholesterol, Toccb206809 - 199 mg/dL02/14/2016 6:48 AM [facility] HDL Ufppxaxsqzy27(L)>45 mg/dL02/14/2016 6:48 AM [facility] MA[facility] LABORATORYVLDL Mljypyggmjn356 - 40 mg/dL02/14/2016 6:48 AM [facility] LABORATORYLDL Cholesterol, Hhndlyuwqk1951 - 129 mg/dL02/14/2016 6:48 AM [facility] LABORATORYFasting OwmpJtopkqugnz61/11/2016 6:48 AM [facility] LABORATORYTC:HDL Ratio5.50(H)1.00 - 5.00002/14/2016 6:48 AM [facility] LABORATORYLDL:HDL Ratio2.910.50 - 3.55 02/14/2016 6:48 AM [facility] LABORATORYNon HDL Gcewsfspcvn5892 - 159 mg/dL02/14/2016 6:48 AM [facility] MA[facility] LABORATORYSpecimen (Source)Anatomical Location / LateralityCollection Method / VolumeCollection TimeReceived TimeBlood specimen (specimen)BLOOD SPECIMEN / Lqqoqjy0602/14/2016 4:43 AM EDT02/14/2016 4:44 AM EDT Narrative Authorizing ProviderResult TypeResult StatusObie Leos MDLABORATORYFinal ResultPerforming OrganizationAddressCity/State/ZIP CodePhone Number [facility] [address] [place] [address] from Last 3 Months or Most Recently Relevant to Health Maintenance Insurance Advance Directives * DNR/Comfort Care (Latest Code Status on File) Date ActivatedDate InactivatedComments02/29/2016 11:07 AM02/29/2016 11:08 AM QuestionAnswerCommentsDNR Order Discussed With:* Surrogate Decision Maker Care Teams Team MemberRelationshipSpecialtyStart DateEnd Date Jenaro Valadez DO [facility] [place] [address] PCP - GeneralFamily Medicine10/26/16 Franklin Link DO ReferringOrthopedics10/26/16 Carlos A Bolanos [address] [place] [address] Primary Staff PhysicianCardiology08/21/18
--- OUTSIDE RECORDS SUMMARY | 2025-03-27 08:20 | XMS_ITS | Clinical Summary ---
Author Organization [facility] Healthcare Address [address] [place] [address] Care Team Providers Care Multimedia Engineer Name Role Phone Jenaro Valadez DO Unavailable Jenaro Valadez DO Primary Care Provider [phone] Allergies Active AllergyReactionsCriticalityNoted XsadMjerqqgoSlqmhvndbwoixGst68/26/2024 Other Reaction(s): Vomiting Isosorbide DjzfucgXugkgPqc06/02/2015 Headache LatexDermatitis,Itching,Rash,GmsdmbmVig23/23/0485WuqtldtpiBro18/26/2024 Other Reaction(s): Vomiting PenicillinsAnaphylaxis,GvohvWnfj93/02/2014Oxycodone-Ddxfiknxklilh46/10/2017 Wrfnxifhfdvs37/10/2017 Darvocet ImjfbmvptzBnzumIoj64/26/2024 Medications MedicationSigDispense QuantityRefillsLast FilledStart DateEnd DateStatus tamsulosin (Flomax) 0.4 MG 24 hr capsule Take 1 capsule (0.4 mg total) by mouth nightly.06/26/2023ctive dulaglutide (Trulicity) 0.75 MG/0.5ML solution pen-injector Inject 0.5 mL (0.75 mg total) under the skin once a week.07/12/2023ctive sildenafil (Viagra) 100 MG tablet TAKE 1 TABLET BY MOUTH EVERY DAY DDOUSH3205/16/2023ctive omeprazole (PriLOSEC) [address] capsule 1 [...] other route every morning before breakfast.08/16/2023ctive HYDROcodone-acetaminophen ([place]) 5-325 MG tablet 12/12/2023ctive Insulin Lispro 100 UNIT/ML solution Inject under the skin. Take as directed per insulin instructions.Active isosorbide mononitrate ER (Imdur) 30 MG 24 hr tablet Take 1 tablet (30 mg total) by mouth daily.07/28/2023ctive Lancets (Iceni TechnologyTouch Delica Plus Xetxfg88J) [facility] [place] 12/12/2023ctive loperamide (Imodium A-D) 2 MG tablet [...] 90 tablet ctive Active Problems ProblemNoted DateDiagnosed JrxnKllaeqhj56/10/6439Kxgvenkysmoywr50/25/2021arpal tunnel syndrome, right upper limb10/02/2020aresthesia and pain of both upper nxkcondzvgk08/20/2021 Assessment & Plan (12/17/2023 8:08 PM EDT): [...] of bilateral legs09/22/2020 Immunizations ImmunizationAdministration DatesNext DueInfluenza, Vtzejqfyobe16/12/2019 Influenza, injectable, quadrivalent, preservative free04/02/2018,03/07/2016 Pneumococcal Polysaccharide BXUV7865 Family History Medical HistoryRelationNameCommentsAlzheimer's diseaseMotherDiabetesMotherHeart diseaseMotherVascular diseaseMotherRelationNameStatusCommentsMother Social History Tobacco UseTypesPacks/DayYears UsedDateSmoking Tobacco: Never AssessedSex and Gender InformationValueDate RecordedSex Assigned at BirthNot on fileLegal Sex Male08/17/2022 6:50 PM EDTGender IdentityNot on fileSexual OrientationNot on file Last Filed Vital Signs Vital SignReadingTime TakenCommentsBlood Harawxnv976/70006/14/2023 8:20 AM EST Pulse--Temperature--Respiratory Rate--Oxygen Saturation--Inhaled Oxygen Concentration--Zovoiw87.9 kg (218 lb)06/14/2023 8:20 AM DYTGbigqu020.8 cm (5' 10 )06/14/2023 8:20 AM ESTBody Mass Index31.28006/14/2023 8:20 AM EST Plan of Treatment Not on file Insurance [address] [place] [phone] Care Teams Team MemberRelationshipSpecialtyStart DateEnd Date Jenaro Valadez DO PCP - External PCP03/05/23 Jenaro Valadez DO PCP - Jydusje23/8/24
--- OUTSIDE RECORDS SUMMARY | 2025-03-27 08:20 | XMS_ITS | Clinical Summary ---
Author Organization [facility] Address [address] [place] [address] Phone Care Team Providers Care Environmental Officer Name Role Phone Jenaro Valadez DO Primary Care Provider [phone] Allergies Active AllergyReactionsCriticalityNoted ViniRxjzvnlrOnzcpGfseyrh13/23/2023 VypubowoskzOfzjdnphjiwNjfz98/23/2023 Medications MedicationSigDispense QuantityRefillsLast FilledStart DateEnd DateStatus albuterol [...] 24 hr tablet Indications:Coronary artery disease involving galena coronary artery of galena heart without angina pectorisTake 1 tablet (25 [...] artery disease)01/01/2024OPD (chronic obstructive pulmonary disease)01/01/2024Shortness of royyyl1901/01/2024 PVD (peripheral vascular disease)01/01/2024Symptomatic pmuuogtqkcv11/29/2024 Encounter for pre-operative cardiovascular /21/2024Former smoker 10/24/2023iabetes ipxlehjk55/23/2023History of PTCA1Hyperlipidemia 03/27/20232332Xbtoostbkrhe90/23/2023 Resolved Problems ProblemNoted DateDiagnosed DateResolved DateEssential xvmeigaxolzz96/29/2024 01/01/2024 Encounters DateTypeDepartmentCare IgawZcqowronlkp32/14/2025Scanned Document [facility] [address] [place] [address] Scanning, Generic Provider 02/15/2025Scanned Document [facility] [address] [place] [address] Scanning, Generic Provider 02/14/2025Scanned Document [facility] [address] [place] [address] Scanning, Generic Provider 02/07/2025Results Follow-Up [address] [place] [phone] Iris Purvis MD Nuclear Stress Test02/05/2025 8:05 AM EDT - 02/05/2025 11:59 PM EDTHospital Encounter [place] [address] [phone] Discharge Disposition: Home02/05/2025 8:05 AM EDT - 02/05/2025 11:59 PM EDT Hospital Encounter at [facility] [address] [phone] Discharge Disposition: Home02/05/2025 8:05 AM EDT - 02/05/2025 11:59 PM EDT Hospital Encounter at [facility] [address] [phone] Discharge Disposition: Home02/05/2025 8:05 AM EDT - 02/05/2025 11:59 PM EDT Hospital Encounter [facility] [address] [address] Discharge Disposition: Home02/05/2025 8:00 AM EDT - 02/05/2025 8:04 AM EDT Hospital Encounter [facility] [address] [address] Chest pain, unspecified type Discharge Disposition: Home02/05/20257816Bysdoh32/24/2025Refill [address] [address] Marybel Chairez LPN Hyperlipidemia, unspecified; Palpitationsfrom Last 3 Months Family History Medical HistoryRelationNameCommentsDiabetesMotherHypertensionMotherbypass graft mechanical complicationMotherRelationNameStatusCommentsMother Social History Tobacco UseTypesPacks/DayYears UsedDateSmoking Tobacco: FormerCigarettesQuit: mokeless Tobacco: NeverAlcohol UseStandard Drinks/WeekCommentsNever0 (1 standard drink = 0.6 oz pure alcohol)Sex and Gender InformationValueDate RecordedSex Assigned at BirthNot on fileLegal AkvYird88/26/2022 1:33 AM EST Gender IdentityNot on fileSexual OrientationNot on file Last Filed Vital Signs Vital SignReadingTime TakenCommentsBlood Yvijeiyf146/8609 9:05 AM EDT Okshz389802/05/2025 9:05 AM EDTTemperature--Respiratory Rate--Oxygen Saturation-- Inhaled Oxygen Concentration--Xgycsz99.7 kg (211 lb)01/17/2024 12:34 PM EDT Hflsra512.9 cm (6')01/17/2024 12:34 PM EDTBody Mass Index28.6208 12:34 PM EDT Plan of Treatment Health MaintenanceDue DateLast DoneCommentsCT Rkqytkelzvgv55/27/1966Colonoscopy 1965Colorectal Cancer Wxrzipscp65/27/1966Creatinine Level1965 Diabetes: Hemoglobin A1C1965Diabetes: Urine Protein Vvvrqdndj41/27/1966 FIT-DNA (Cologuard)1965FIT1965HIV Rsmbjpyzl03/27/1966Lipid Panel 1965Potassium Level1965 8864Wywqavzuletmh14/27/1966Yearly Adult Physical 1965MMR Vaccines (1 of 1 - Standard series)1966Diabetes: Retinopathy Rrbzulrgc79/27/1976Hepatitis C Fewuhtgty34/27/1984Hepatitis B Vaccines (1 of 3 - 19+ 3-dose series)1984PSA Prostate Cancer Ylulfguyg04/27/2016Zoster Vaccines (1 of 2)2015Pneumococcal Vaccine (2 of 2 - PCV)03/05/2019 03/05/2018, 02/22/2016Influenza Vaccine (#1)/05/2019, 04/02/2018, 03/05/2018, Additional history existsCOVID-19 Vaccine (3 - 2024- season) 506/04/2021, 2596Ffzypkeqekumtx62/08/811043/01/2025, 03/03/2024, 4DTaP/Tdap/Td Vaccines (2 - Td or [...] TEST, REGADENOSON W MYOCARDIAL PERFUSION SPECT (MULTI STUDY)Vffpfro6002/05/2025 10:18 AM EDT Chest pain, unspecified type QLSCNDSFTDAVZM22/08/2025 from Last 3 Months or Most Recently Relevant to Health Maintenance Results * STRESS TEST, REGADENOSON W MYOCARDIAL PERFUSION SPECT (MULTI STUDY) (02/05/2025 10:18 AM EDT)Anatomical RegionLateralityModalityNaultman orrville hospital Medicine Specimen (Source)Anatomical Location / LateralityCollection [...] Purvis 02/05/2025 6:05 PM Dictation workstation: ?? [id number] Narrative 02/05/2025 6:05 PM EDT Interpreted By: Iris Purvis and Giannuzzi Michael STUDY: MYOCARDIAL PERFUSION STRESS TEST WITH LEXISCAN ?? Performing facility: [facility] [place], [address] [place] [address], [address], [address] Provider: ??Iris Purvis MD, [facility] PCP: ??Dr. Wm Valadez Supervising provider: ??Lui [...] ?? COMPARISON: Previous nuclear testing completed at [facility]. ? ACCESSION NUMBER(S): [id number] ?? ORDERING CLINICIAN: IRIS PURVIS ?? TECHNIQUE: [...] PERFUSION STRESS TEST WITH LEXISCAN Performing facility: [facility], [address] [place] [address], Suite [facility], [place] [id number] [facility] Provider: Iris Purvis MD, FACC PCP: Dr. Wm Valadez Supervising provider: Lui Schmidt DO, [facility] INDICATION: Signs/Symptoms: ,R07.9 Chest pain, unspecified HISTORY: Gender: M; Age: 59 y/o ; Height: HT 182.9 cm cm; Weight: WT 95.709 kg kg. Chest Pain; CAD; High Cholesterol; Diabetes; SOB; COPD; Quit smoking 4 years ago. Cardiac catheterization on 2017. PTCA on 2017. COMPARISON: Previous nuclear testing completed at [facility]. ACCESSION NUMBER(S): [id number] ORDERING CLINICIAN: IRIS PURVIS TECHNIQUE: ONE DAY [...] Iris Purvis 02/05/2025 6:05 PM Dictation workstation: [id number] Authorizing ProviderResult TypeResult StatusIris Purvis MDCV STRESS PROCEDURESFinal Result * Echocardiogram (10/10/2024) Narrative 10/10/2024 Ordered by an unspecified provider. Authorizing ProviderResult TypeResult StatusGeneric Provider ScanningCV ECHO PROCEDURESFinal Result from Last 3 Months or Most Recently Relevant to Health Maintenance Insurance Care Teams Team MemberRelationshipSpecialtyStart DateEnd Date Jenaro Valadez DO [address] [place] [address] PCP - GeneralFamily Medicine11/04/24
--- OUTSIDE RECORDS SUMMARY | 2025-03-27 08:25 | XMS_ITS | CCD ---
Author Organization [facility] Care Team Providers Care Route Cdl Driver Name Role Phone Teresa Lynch Unavailable Unavailable [...] Care Provider MD Abdullahi Wilson Emergency Provider [phone] DO Teresa Lynch Primary Care Provider MD Abdullahi Wilson Emergency Provider JERARDO Mclaughlin Attending Provider JERARDO Mclaughlin Referring Provider LINDSEY Soto Attending Provider [phone] DO Teresa Lynch Primary Care Provider Teresa Lynch DO Primary Care Provider MIKE MONTES Attending Unavailable PAULA SOTO Referring Unavailable SIMONMIKE PENNINGTON Admitting Unavailable SIMONMIKE Attending Unavailable ONLY), [facility] (INPATIENT Consult ing Unavailable DERISO, ROSIE C Referring Unavailable MAMAE RUCKER Referring Unavailable DERISO, ROSIE Snehal Referring Unavailable DO Teresa Lynch Primary Care Provider [phone] Mike Montes Admitting Unavailable Mike Montes Attending Unavailable Mike Montes Referring Unavailable MD Elan Antonio Attending Unavaila ble Mike Montes Consulting Unavailable Mike Montes Consulting Unavailable Mike Montes Consulting Unavailable MD Mike Montes Admitting Unavailable MD Mike Montes Consulting Unavailable MD Mike Montes Attending Unavailable MD Mike Mnotes Referring Unavailable SimonMike pennington Consulting Unavailable SimonMike [...] Mike Weathers Admitting Unavailable Simon, MD Mike Wetahers Attending Unavailable Simon, MD Mike Weathers Referring [...] Provider DO Teresa Lynch Primary Care Provider [phone] MD João Powell Admit Provider MD João Powell Attending Provider MD Lyssa Sharpe Other Provider MD Mike Burleson Other Provider LINDSEY Soto Attending Provider MD Kait Dan Emergency Provider DO Teresa Lynch Primary Care Provider MD João Powell Admit Provider MD João Powell Attending Provider MD Lyssa Sharpe Other Provider MD Mike Burleson Other Provider DO Bonilla Rubin Emergency Provider DO Luther Dozier Other Provider MD Job James Other Provider [phone] MD Remberto Ervin Attending Provider [phone] DO Scottie Bonilla Emergency Provider [phone] DO Jacoby Luther M Other Provider MD Job James Other Provider MD Remberto Ervin Attending Provider [phone] Kait Dan MD Emergency Provider Teresa Lynch DO Primary Care Provider Andre HERRERA, João Admit Provider Andre HERRERA, João Attending Provider Lyssa Sharpe MD Other Provider Mike Burleson MD Other Provider Scottie BRICENO, Bonilla Emergency Provider Jacoby BRICENO, Luther Sarika Other Provider Jacob [...] e Teresa Lynch DO Primary Care Provider [phone] Negro Hu MD Attending Provider Teresa Lynch DO Primary Care Provider Negro Hu MD Attending Provider [phone] Francisco Duncan MD Emergency Provider [phone] Marge Andino MD Admit Provider Sina HERRERA, [...] Provider Shaheed Barboza MD Other Provider Gabby [facility], Maryann Simmons Other Provider Teresa Lynch DO [...] Other Provider Jez Dominguez PA-C Emergency Provider [phone] Abdullahi Canchola DO Admit Provider [phone] Abdullahi Canchola DO Attending Provider Teresa Lynch DO Attending Provider [phone] Maurice Francis MD Other Provider BERNARD DE [...] sources)natural latex rubber; Translations: [LATEX]Allergy to substance (finding)57-38-2211Zqniier (finding), Eruption of skin (disorder)[facility] (20 sources)Penicillins; Translations: [Penicillins]Allergy to drug (finding) 41-42-0176Yhzjprvyaiicm reaction (disorder)[facility] (20 sources)Acetaminophen / oxyCODONEDrug Sssyvvs63-66-2977brznxmtuAputv Coast FIZZA Other (20 sources)tamsulosin; Translations: [TAMSULOSIN]Drug Wwlrcmc47-89-4208axtzg [facility] (20 sources)PENICIILINPropensity to adverse reactionsSWELLING OF AIRWAYSnoqual[facility] FIZZA Other (20 sources)Acetaminophen; Translations: [ACETAMINOPHEN]Drug Lizaqzu39-33-8382 VomitingFirRegency Hospital [facility] (20 sources)oxyCODONE; Translations: [Oxycodone]Drug Demiseo81-46-3827MbmobgozMemorial Health System (1 source)PenicillinsDrug allergy (disorder)57-08-2830Fxp [facility] (20 sources)Penicillin G; Translations: [penicillin G benzathine]Drug Allergy [facility] (12 sources)Penicillin; Translations: [Penicillin]Drug Allergyanaphylaxis, Anaphylactoid reaction (disorder)[facility] (20 sources)LatexAllergy to -45-8235Ckmwesz, Dermatitis, Itching, RashUnUniversity Hospitals [facility] (20 sources)PenicillinsDrug Fwuwikv82-58-5547Ynkvwxujcpn, [facility] (17 sources)Isosorbide; Translations: [ISOSORBIDE MONONITRATE]Drug Allergy 76-36-3628Fbylz (See Comments)[facility] (2 sources)Acetaminophen / oxyCODONE; Translations: [OXYCODONE-ACETAMINOPHEN] Drug Afmcagk63-33-4462[facility] (8 sources)Isosorbide DinitrateDrug Fjowrfd77-82-6453Bnxkb, Other (See Comments) [facility] (1 source)LatexPropensity to adverse tevivcjut18-64-1377Yzmdgixtis, Itching, Rash, UnknownNOMS Healthcare (1 source)PenicillinsDrug Aosylufeanf15-43-2255Yjimvjuhgql, HivesNOMS Healthcare (9 sources)Propoxyphene; Translations: [PROPOXYPHENE]Drug Ptvhabb78-65-5441TD[facility] (1 source)LatexDrug allergy (disorder)92-70-1629AsglclctcSt. [facility]'S [facility] (1 source)PenicillinsDrug allergy (disorder)07-77-5865MysmiyrxeSt. Mary'S [facility] (1 source)tamsulosinDrug Zaqrkht70-10-8856NwfbotlbdSt. Mary'S [facility] (8 sources)PenicillinsPropensity to adverse reactions to qdla12-03-9290 Anaphylaxis, [facility] (1 source)Isosorbide Dinitrate; Translations: [ISOSORBIDE DINITRATE]Drug Allergy 07-06-6887LxuCktftg Repository Medications Current Medications MedicationDrug Class(es)DatesSig (Normalized)Sig (Original)acetaminophen 325 mg / HYDROcodone bitartrate 5 mg oral tablet (20 sources)Opioid AgonistStart: 40-75-8887Ojtgy: 06-11-2024 End: 00-37-3017Vankp: 06-11-2024 End: 99-91-2211eoqs 1 tablet by mouth every four to six hours as needed for pain Hydrocodone-Acetaminophen 5-325 mg tablet Discontinued 1 TAB PO EVERY 4-6 HOURS as needed for pain 6 2 July 16, 2024 August 12, 2024 12:27pmStart: 07-26-2023 End: 01-53-8970Agfix: 07-26-2023 End: 95-67-8869pukr 1 tablet by mouth four times daily as neededHydrocodone- Acetaminophen 5-325 mg tablet Discontinued TAB PO July 26, 2023 1:00am March 03, 2024 2:28pm FreeTextSi tablet Orally QID PRN; Note: Source Status: Refill; Refills: 0; Provider: Rory Eason PStart: 62-94-7183rsaa 1 tablet by mouth four times daily as neededHYDROcodone-Acetaminophen 5-325 MG 1 tablet Orally QID PRN Apr, ActiveStart: 09-21-5634eltc 1 tablet by mouth every twelve hoursHYDROcodone-Acetaminophen 5-325 MG 1 tablet as needed Orally every 12 hrs Nov, ActiveStart: 43-12-2176xgzt 1 tablet by mouth every six hoursStart: 73-30-6580rnkr 1 tablet by mouth every six hoursHYDROcodone- Acetaminophen 5-325 MG 1 tablet as needed Orally every 6 hrs Apr, Active Start: 86-05-8170xqpx 1 tablet by mouth every six hoursHYDROcodone-Acetaminophen 5-325 MG 1 tablet as needed Orally every 6 hrs Feb, ActiveStart: 99-67-8639rveq 1 tablet by mouth every six hoursStart: 07-24-2019 End: 43-49-5818Bwvxa: 07-24-2019 End: 67-57-0955cxvp 1 tablet by mouth every six hours as needed for pain Hydrocodone-Acetaminophen 5-325 mg tablet Discontinued 1 TAB PO Q6H as needed for Pain July 24, 2019 1:00am July 14, 2020 12:39pmStart: 10-10-2014 Marion 325 mg-5 mg oral tablet 1 tab(s), Oral, q4hr for pain, 12 tab(s), Refill(s) 0 Start Date: 10/10/14 Status: [id number] 200 actuat albuterol 0.09 mg/actuat metered dose inhaler (20 sources)beta2-Adrenergic AgonistStart: 92-24-7296groo 2 puff(s) by inhalation every four hours as neededalbuterol (PROAIR HFA) 90 mcg/actuation inhaler Inhale 2 puffs every 4 (four) hours as needed. 11/23/2022 ActiveStart: 10-12-4633EcuFct HFA Inhalation, q6hr Shortness of breath or wheezing Start Date: 11/23/22 Status: Ordered Repeat number: 1Start: 99-11-5155MzaYtp HFA Inhalation, q6hr Shortness of breath or wheezing Start Date: 11/23/22 Status: OrderedStart: 18-20-5006YusCwg HFA Inhalation, q6hr Start Date: 11/23/22 Status: OrderedStart: 47-74-2908Yqdsf: 96-94-0334inec 1 puff(s) by inhalation every six hours as neededAlbuterol Sulfate (Proair Hfa) 90 mcg/actuation Hfa Aerosol Inhaler Active 2 PUFF INHALATION Every 6 hours as needed for Shortness Of Breath June 28, 2019 1:00amStart: 33-26-4767psxw 1 puff(s) by inhalation every four to six hoursAlbuterol Sulfate (Proair Hfa) 90 mcg/actuation Hfa Aerosol Inhaler Active 2 PUFF INHALATION EVERY 4-6 HOURS June 28, 2019 1:00amStart: 82-47-5604fxsa 2 puff(s) by inhalation every four hours [...] mg oral tablet (1 source)Xanthine Oxidase InhibitorStart: 21-34-5566edwsyakcwhryk hydrochloride 25 mg oral tablet (20 sources)Tricyclic AntidepressantStart: 07-12-2023 End: 83-18-1909eope 1 tablet by mouth once dailyamitriptyline (ELAVIL) 25 mg tablet Take 1 tablet (25 mg total) by mouth nightly. 09/03/2023 ActiveStart: 07-12-2023 End: 40-92-8039gcvy 4 tablets by mouth once dailyAmitriptyline 25 mg tablet Discontinued 100 MG PO Daily July 12, 2023 1:00am March 062:39pm Start: 07-12-2023 End: 15-81-1318jlgu 100 mg by mouth once dailyAmitriptyline Discontinued [...] sources)Platelet Aggregation Inhibitor, Nonsteroidal Anti-inflammatory Drug Start: 79-48-6929ohqc 1 tablet by mouth in the morningaspirin 81 mg Take 1 tablet (81 mg total) by mouth in the morning. 10/06/2023 ActiveStart: 06-22-2021 take 1 tablet by mouth once dailyAspirin Low Dose 81 MG Oral Tablet Delayed Release TAKE 1 TABLET DAILY. Quantity: 90 Refills: 3 Ordered: 26-Oct-2021 Raulito Inman MD Start : 22-Jun-2021 Active fill at patients requestStart: 04-01-2018 End: 21-12-2006Lshsrgl 81 mg Tab-EC (14 sources)Start: 07-65-5201Exoepil 81 mg Tab-EC Refills(s) 0 Start Date: 07/10/14 Status: Orderedatorvastatin 80 mg oral tablet (20 sources)HMG-CoA Reductase InhibitorStart: 03-13-2024 End: 41-72-2516Izrri: 07-10-2014 End: 66-47-2894oxmn 1 tablet by mouth in the morningatorvastatin (LIPITOR) 80 mg tablet Take 1 tablet (80 mg total) by mouth in the morning. 10/06/2023ctive Blood Glucose Meter kit (20 sources)Start: 61-15-0906Clmqq: 29-08-2893Iyeec Glucose Meter kit as directed BID Dec, ActiveBlood Glucose Monitoring Suppl (ONE TOUCH ULTRA 2) w/Device kit (1 source)Start: 95-22-6821Pmqra Glucose Monitoring Suppl (ONE TOUCH ULTRA 2) w/Device kit USE TO TEST BLOOD SUGARS ONCE A DAY08/17/2023 ActiveBlood Pressure Kit - (20 sources)Start: 78-29-0756Stxwe: 86-41-1232Pxlpg Pressure Kit - check bp 1-2 times a day and prn Sep, Dcdsgd541 actuat budesonide 0.16 mg/actuat / formoterol fumarate 0.0045 mg/actuat metered dose inhaler (20 sources)Corticosteroid, beta2-Adrenergic AgonistStart: 43-49-7465Avdkg: 74-58-4421nbqt 1 puff(s) by inhalation twice dailyBudesonide-Formoterol 160-4.5 mcg/actuation HFA aerosol inhaler Active 2 PUFF INHALATION Twice daily April 05, 2024 12:00amStart: 03-13-2024 End: 70-52-3589Yebvq: 03-13-2024 End: 59-76-6698wqvm 1 puff(s) by inhalation twice dailyBudesonide-Formoterol (Symbicort) 80-4.5 mcg/actuation Hfa Aerosol Inhaler Discontinued 2 PUFF INHAL ATION Twice daily 0 March 13, 2024 12:00am April 05, 2024 1:45pmStart: 07-12-2023 End: 28-20-4749Cgfbu: 07-12-2023 End: 35-68-2164Mpoxcwnara-Formoterol (Symbicort) 160-4.5 mcg/actuation HFA aerosol inhaler Discontinued 1 INH INHALATION Twice daily July 12, 2023 1:00am March 03, 2024 2:28pmclarithromycin 500 mg oral tablet (6 sources)Macrolide AntimicrobialStart: 23-11-9185pijv 1 tablet by mouth every twelve hoursClarithromycin 500 MG 1 tablet Orally every 12 hrs for 10 day(s) Jul, Activeclopidogrel 75 mg oral tablet (20 sources)P2Y12 Platelet InhibitorStart: 07-10-2014 End: 90-49-5764qphuxnxudwwhy 10 mg oral tablet (20 sources)Sodium-Glucose Cotransporter 2 InhibitorStart: 11-23-2022 End: 02-10-5192bopd 1 tablet by mouth once daily in the morningJardiance 10 mg oral tablet 10 mg = 1 tab(s), Oral, qAM Start Date: 11/23/22 Status: Ordered Repeat number: 1Start: 12-19-0506yltk 1 tablet by mouth every twenty-four hours Jardiance 25 MG 1 tablet Orally Once a day for 30 day(s) Sep, Active Ensure (3 sources)Start: 88-78-0785Ejnqwz 237 mL, Oral, BIDWM, Refill(s) 0 Start Date: 02/21/24 Status: Orderedfamotidine 40 mg oral tablet (14 sources)Histamine-2 Receptor AntagonistStart: 44-05-8631ewoz 1 tablet by mouth once daily at bedtimefamotidine 40 mg Tab 40 mg = 1 tab(s), Oral, Once a day (at bedtime), # 30 tab(s), Refills(s) 0 Start Date: 07/10/14 Status: Ordered fenofibrate 160 mg oral tablet (14 sources)Peroxisome Proliferator Receptor alpha AgonistStart: 74-96-2340cxdq 1 tablet by mouth once dailyfenofibrate 160 mg oral tablet 160 mg = 1 tab(s), Oral, Daily, Refills(s) 0 Start Date: 10/31/13 Status: OrderedFlash Glucose Scanning [place] (Freestyle Jigar 2 [place]) misc (12 sources)Start: 66-94-6675Uwuwt Glucose Scanning [place] (Freestyle Jigar 2 [place]) misc Active 0 .Route December 27, 2023 11:00pm As directedStart: 11-71-1068Fspar Glucose Scanning [place] (Freestyle Jigar 2 [place]) misc Active 0 .Route 1 December 28, 2023 12:00am As directedStart: 34-96-6436Qdjdz Glucose Scanning [place] (Freestyle Jigar 2 [place]) misc Active 0 .ROUTE 1 December 28, 2023 12:00am As directedFlash Glucose Sensor (Freestyle Jigar 2 Sensor) kit (12 sources)Start: 69-17-3414Snwlj Glucose Sensor (Freestyle Jigar 2 Sensor) kit Active 0 .Route 1 December 27, 2023 11:00pm As directedStart: 66-18-8214Hvywn Glucose Sensor (Freestyle Jigar 2 Sensor) kit Active 0 .Route 1 December 28, 2023 12:00am As directedStart: 94-05-0727Rsywx Glucose Sensor (Freestyle Jigar 2 Sensor) kit Active 0 .ROUTE 1 December 28, 2023 12:00am As directedfurosemide 40 mg oral tablet (20 sources)Loop DiureticStart: 07-26-2023 End: 81-89-8913zkop 1 tablet by mouth once dailyfurosemide (Lasix) 40 mg tablet Indications: Localized edema Take 1 tablet (40 mg) by mouth once daily. 90 tablet 3 04/02/2024 04/02/2025 ActiveStart: 07-12-2023 End: 38-12-2820Sigve: 07-12-2023 End: 62-82-1946qwze 1 tablet by mouth once daily in the morningFurosemide (Lasix) 20 mg tablet Discontinued 20 MG PO Every morning July 12, 2023 1:00am March 03, 2024 2:29pmStart: 03-13-2019 End: 67-68-8789Jxyrk: 03-13-2019 End: 90-59-8476klaz 1 tablet by mouth once dailyFurosemide 20 mg Tablet Discontinued 20 MG PO Daily March 13, 2019 12:00am July 14, 2020 12:39pm gabapentin 300 mg oral capsule (1 source)Anti-epileptic AgentStart: 11-14-2023 End: 93-59-1918mmnt 1 capsule by mouth three times dailygabapentin (NEURONTIN) 300 mg capsule Indications: Post-op pain Take 1 capsule (300 mg total) by mouth 3 (three) times a day for 7 days. 21 capsule 11/14/2023 11/21/2023 Active glimepiride 2 mg oral tablet (20 sources)SulfonylureaStart: 10-31-2013 End: 38-11-0091oamxhCFVEPYvpufyjfe 12.5 mg / valsartan 80 mg oral tablet (20 sources)Thiazide Diuretic, Angiotensin 2 Receptor BlockerStart: 11-05-2024 Start: 08-11-2024 End: 62-21-7239Irudi: 04-05-2024 End: 06-88-8338Beseo: 03-13-2024 End: 48-87-4639Bwdgy: 03-13-2024 End: 18-47-1510wimb 1 tablet by mouth once dailyValsartan-Hydrochlorothiazide 80-12.5 mg tablet Discontinued 1 TAB PO Daily April 05, 2024 3:28pm August 11, 2024 4:35amStart: 07-12-2023 End: 62-22-9268Hwhgq: 11-23-2022 End: 16-57-3499hosg 1 tablet by mouth once dailyValsartan-Hydrochlorothiazide (Diovan [...] mg oral tablet (20 sources)AntihistamineStart: 05-06-2024 End: 24-84-6945Msqoc: 04-19-2024 End: 01-95-4362Xnoupyy Lispro (14 sources)Insulin AnalogStart: 99-53-6762jjqqjgu lispro 0-10 Unit(s), SubCutaneous, QIDACHS, Refills(s) 0 Start Date: 02/21/24 Status: Ordered Repeat number: 1Start: 92-51-4260jkfxxgu lispro 0-10 Unit(s), SubCutaneous, QIDACHS, Refills(s) 0 Start Date: 02/21/24 Status: OrderedStart: 02-20-2024 End: 13-42-9437LvhoCFJ Sliding Scale 0-10 Unit(s), Injection-Insulin, SubCutaneous, Start date 02/20/24 4:30:00 PM EDT Start Date: 02/20/24 Stop Date: 02/20/24 Status: Completedinsulin lispro (HumaLOG) 100 unit/mL injection Inject under the skin. Take as directed per insulin instructions. ActiveInsulin Lispro 100 UNIT/ML solution Inject under the skin. Take as directed per insulin instructions. ActiveInsulin Syringe,Safety Needle (1 source)Start: 55-54-6457Hoaybzf Syringe,Safety Needle Active 0 .Route 100 March 29, 2024 12:00am As laceusju53 hr isosorbide mononitrate 30 mg extended release oral tablet (20 sources)Nitrate VasodilatorStart: 57-16-2055Xzmyl: 01-11-2023 End: 33-32-3593Hqidu: 75-71-4673goxm 1 tablet by mouth once daily in the morning Imdur 60 mg ER Tab 60 mg = 1 tab(s), Oral, qAM, # 30 tab(s), Refills(s) 0 Start Date: 07/11/14 Status: OrderedJuven packet (3 sources)Start: 25-67-6150Pkbie packet Oral, BID, Refill(s) 0 Start Date: 02/21/24 Status: Orderedloperamide hydrochloride 2 mg oral tablet (3 sources)Opioid Agonisttake 1 tablet by mouth four times daily as needed for diarrhealoperamide (Imodium A-D) 2 MG tablet Take 1 tablet (2 mg) by mouth 4 times a day as needed for diarrhea. Activemagnesium oxide 400 mg oral tablet (20 sources)Start: 16-36-2253xfwv 1 tablet by mouth once dailymagnesium oxide (Mag-Ox) 400 mg tablet Indications: Palpitations Take 1 tablet (400 mg) by mouth once daily. 12/26/2024 ActiveStart: 05-07-2024 End: 03-20-2941Bqukq: 03-13-2024 End: 56-84-0783vdjclnmiq oxide (Mag-Ox) 400 MG tablet 1 tablet (400 mg) 3 times a day. ActivemetFORMIN hydrochloride 1000 mg oral tablet (20 sources)BiguanideStart: 06-06-2012 End: 97-32-1570qhqv 1 tablet by mouth every twelve hoursmetFORMIN (GLUCOPHAGE) 1000 mg tablet Take 1 tablet (1,000 mg total) by mouth every 12 (twelve) hours. Activetake 1 tablet by mouth every twelve hoursmetFORMIN (Glucophage) 1,000 mg tablet Take 1 tablet (1,000 mg) by mouth every 12 hours. Activemetoprolol tartrate 25 mg oral tablet (20 sources)beta-Adrenergic BlockerStart: 03-13-2024 End: 31-01-6895Glhsd: 03-13-2024 End: 66-96-5412Cxwmr: 03-13-2024 End: 93-28-5597mdzw 1 tablet by mouth twice dailyMetoprolol Tartrate 25 mg Tablet Discontinued 25 MG PO Twice daily 0 March 13, 2024 12:00am August 11, 2024 4:40am Hold for SBPStart: 03-06-2024 End: 42-21-6027Dnfoa: 03-06-2024 End: 56-98-4944Ndksnpxzdx Tartrate 100 mg tablet Discontinued 12.5 MG PO Twice daily March 06, 2024 12:38pmOct2023 2:53pmStart: 02-21-2024 End: 46-42-6133roxstuhqgf tartrate 100 mg Tab 50 mg = 0.5 tab(s), Tab, Oral, Start date 02/21/24 9:00:00 AM EDT, 02/12/24 20:07:00 EDT Start Date: 02/21/24 Stop Date: 02/21/24 Status: CompletedStart: 01-01-2024 End: 28-58-5009xswd 1 tablet by mouth once dailymetoprolol succinate XL (Toprol- XL) 25 mg 24 hr tablet Indications: Coronary artery disease involving [place] coronary artery of [place] heart without angina pectoris Take 1 tablet (25 mg) by mouth once daily. Do not crush or chew. 90 tablet 3 01/01/2024 ActiveStart: 04-01-2018 End: 44-46-5397vmjrumenqq tartrate 100 mg Tab 50 mg = 0.5 tab(s), Oral, BID, Refills(s) 0 Start Date: 02/12/24 Status: Ordered Repeat number: 1Start: 04-01-2018 End: 24-15-6175Fpvxw: 04-01-2018 End: 78-38-3209lvva 12.5 mg by mouth twice dailyMetoprolol Tartrate Discontinued 12.5 MG PO Twice daily 180 March 06, 2024 12:38pm March 08, 2024 2:53pm Start: 85-51-5446mpmz 100 mg by mouth twice dailyMetoprolol Tartrate Active 100 MG PO Twice daily April 01, 2018 12:00amStart: 19-99-6209vnxnstefqk 100 mg, BID, Refills(s) 0 Start Date: 01/24/11 Status: Ordered End: 59-82-4019eqgw 0.5 tablet by mouth twice dailymetoprolol tartrate (Lopressor) 100 mg tablet Take 0.5 tablets (50 mg) by mouth 2 times a day. 10/23 Discontinued (Therapy completed)24 hr nicotine 0.875 mg/hr transdermal system (8 sources)Cholinergic Nicotinic AgonistStart: 60-48-7580Gejyl: 02-21-2024 nicotine 14 mg/24 hr Transderm ER Film TransDermal, Daily, Refill(s) 0 Start Date: 02/21/24 Status: Ordered Repeat number: 1nitroglycerin 0.4 mg sublingual tablet (20 sources)Nitrate VasodilatorStart: 55-25-3873anlzlcvbwqxzw (Nitrostat) 0.[address] under the tongue. 11/03/2021 ActiveStart: 07-10-2014 End: 21-79-2055lykbtiaagktnv (Nitrostat) 0.[address] 1 tablet (0.4 mg total) under the tongue every 5 (five) minutes as needed for chest pain. Active omeprazole 40 mg delayed release oral capsule (20 sources)Proton Pump InhibitorStart: 97-32-6518Tzyqmrhm Oral, Daily Start Date: 11/23/22 Status: OrderedStart: 07-24-2019 End: 51-08-1817Urfss: 07-24-2019 End: 86-45-4098zwxl 40 mg by mouth once dailyOmeprazole Discontinued 40 MG PO Daily July 24, 2019 1:00am July 26, 2023 5:38pmStart: 65-36-6021zhrt 20 mg by mouth once dailyOmeprazole Active 20 MG PO Daily July 24, 2019 1:00amStart: 01-02-2018 End: 88-06-2979eush 2 tablets by mouth twice daily before mealtimeomeprazole OTC (PriLOSEC OTC) 20 mg EC tablet Take 2 tablets (40 mg) by mouth 2 times a day before meals. Do not crush, chew, or split. ActiveONETOUCH ULTRA2 METER misc (20 sources)Start: 54-20-1644TPUUYOIM ULTRA2 METER misc 1 Unit by subconjunctival route in the morning. 08/17/2023 SuspendedStart: 08-17-2023 ONETOUCH ULTRA2 METER misc 1 Unit by subconjunctival route in the morning. 08/17/2023 Activepregabalin 75 mg oral capsule (20 sources)Start: 06-92-4868mcpe 3 capsules by mouth three times daily Pregabalin (Lyrica) 75 mg capsule Active 225 MG PO Three times daily October 10, 2024 12:00amStart: 08-12-2024 End: 80-68-3390twmd 1 capsule by mouth three times dailyPregabalin (Lyrica) 75 mg capsule Discontinued 75 MG PO Three times daily 3 August 30, 2024 12:00am October 10, 2024 6:58pmStart: 03-13-2024 End: 29-79-6855rlon 1 capsule by mouth twice dailyPregabalin 50 mg Capsule Discontinued 50 MG PO Twice daily 0 March 13, 2024 12:00am April 05, 2024 1:35pmStart: 01-24-2011 End: 23-32-9700xwmrlpbohw (LYRICA) 200 mg capsule Take 1 capsule (200 mg total) by mouth in the morning and 1 capsule (200 mg total) at noon and 1 capsule (200 mg total) before bedtime. 09/28/2023 ActiveProAir HFA 108 (90 Base) MCG/ACT (20 sources)Start: 77-88-4244hkur 2 puff(s) by inhalation every four hours as neededProAir HFA 108 (90 Base) MCG/ACT 2 puffs as needed Inhalation Q4H PRN PRN Dec, ActiveStart: 74-28-8452gjqr 2 puff(s) by inhalation every four hours as neededrivaroxaban 2.5 mg oral tablet (6 sources)Factor Xa InhibitorStart: 11-08-2023 End: 45-85-1077swzg 1 tablet by mouth in the morning, then take 1 tablet by mouth at bedtimerivaroxaban (XARELTO) 2.5 mg tablet Take 1 tablet (2.5 mg total) by mouth in the morning and 1 tablet (2.5 mg total) before bedtime. Do all this for 30 days. 60 tablet 11/08/2023 12/08/2023 Activesennosides, correction 8.6 mg oral tablet (3 sources)Start: 88-05-2534rrrh 1 tablet by mouth twice dailysenna 8.6 mg Tab 8.6 mg = 1 tab(s), Oral, BID, Refills(s) 0 Start Date: 02/21/24 Status: Ordered sildenafil 100 mg oral tablet (20 sources)Phosphodiesterase 5 InhibitorStart: 04-05-2024 End: 57-51-7431Ldnmc: 03-08-2024 End: 03-91-9536Qmwpp: 03-13-2019 End: 04-13-1968Secnm: 05-07-2018 End: 32-93-6413qyri 1 tablet by mouth once dailySildenafil (Viagra) 100 mg Tablet Discontinued 100 MG PO Daily March 13, 2019 12:00am March 03, 2024 2:29pmSITagliptin 100 mg oral tablet (20 sources)Dipeptidyl Peptidase 4 InhibitorStart: 07-09-2020 End: 19-32-4681mrnxvwjmlu hydrochloride 0.4 mg oral capsule (20 sources)alpha-Adrenergic BlockerStart: 29-88-2679nssh 1 capsule by mouth twice dailytamsulosin 0.4 mg Cap 0.4 mg = 1 cap(s), Oral, BID, # 180 cap(s), Refills(s) 3, Pharmacy: [facility]/pharmacy #[id number], 182, cm, 09/27/24 10:46:00 EDT, Height/Length Dosing, 88, kg, 09/27/24 10:46:00 EDT, Weight Dosing Start Date: 09/27/24 Status: Ordered Quantity: 180.0 Unit: cap(s) Repeat number: 4Start: 02-21-2024 End: 52-67-2940zxifehwuqv 0.4 mg Cap 0.4 mg = 1 cap(s), Cap, Oral, Start date 02/21/24 9:00:00 AM EDT, 02/12/24 18:02:00 EDT Start Date: 02/21/24 Stop Date: 02/21/24 Status: CompletedStart: 62-47-4357gigb 1 capsule by mouth once daily tamsulosin (FLOMAX) 0.4 mg capsule Take 1 capsule (0.4 mg total) by mouth nightly. 06/26/2023 ActiveStart: 02-14-2023 End: 10-84-5979ukls 1 capsule by mouth at bedtimetamsulosin (FLOMAX) 0.4 mg capsule Take 1 capsule (0.4 mg total) by mouth in the morning and at bedtime. 06/26/2023 Activetake 1 capsule by mouth once dailyTamsulosin HCl - 0.4 MG Oral Capsule TAKE 1 CAPSULE Daily Quantity: 0 Refills: 0 Ordered: 15-Feb-2023 DO ActiveTENS Unit (20 sources)Start: 60-71-7871Vemuo: 97-23-5583XQAR Unit as directed Use as directed. Jan, Zfasgd39 actuat tiotropium 0.0025 mg/actuat inhalation spray (20 sources)AnticholinergicStart: 60-80-1212lvbk 2 puff(s) by mouth once daily Spiriva Respimat 2.5 MCG/ACT inhaler INHALE 2 PUFFS BY MOUTH ONCE DAILY 12/20/2022 ActiveStart: 16-55-5789ixnb 1 capsule by inhalation once in the morningtiotropium (SPIRIVA WITH HANDIHALER) 18 mcg per inhalation capsule Place 1 capsule (18 mcg total) into inhaler and inhale in the morning. 11/23/2022 ActiveStart: 21-59-3440hqym 1 capsule by inhalation once dailytiotropium (SPIRIVA [...] Quantity: 90.0 Unit: cap(s) Repeat number: 1Start: 47-80-3193Onnxpvi 18 mcg Cap 18 mcg = 1 cap(s), Inhalation, Daily, Using only ONE capsule, have the patient inhale twice, # 90 cap(s) Start Date: 11/23/22 Status: Ordered End: 54-63-4676gebn 2 puff(s) by inhalation twice dailytiotropium (Spiriva [...] Refills: 0 Ordered: 26-Oct-2021 DO Active Tiotropium [place] (Spiriva With Handihaler) 18 mcg capsule, w/inhalation device (20 sources)Start: 18-60-6062wvzq 1 capsule by inhalation once dailyTiotropium Channahon (Spiriva With Handihaler) 18 mcg capsule, w/inhalation device Active 1 CAP INHALATION Daily March 02, 2024 11:00pm puncture 1 cap using device; one dose = 2 inhalationsStart: 30-47-9743tlgn 1 capsule by inhalation once daily Tiotropium [place] (Spiriva With Handihaler) 18 mcg capsule, w/inhalation device Active 1 CAP INHALATION Daily March 03, 2024 12:00am puncture 1 cap using device; one dose = 2 inhalationsStart: 07-12-2023 End: 35-09-4202spoi 1 capsule by inhalation once dailyTiotropium [place] (Spiriva With Handihaler) 18 mcg capsule, w/inhalation device Discontinued 1 CAP INHALATION Daily July 12, 2023 12:00am March 03, 2024 1:29pm puncture 1 cap using device; one dose = 2 inhalationsStart: 07-12-2023 End: 70-52-9127ofhm 1 capsule by inhalation once dailyTiotropium Channahon (Spiriva With Handihaler) 18 mcg capsule, w/inhalation device Discontinued 1 CAP INHALATION Daily July 12, 2023 1:00am March 03, 2024 2:29pm puncture 1 cap using device;one dose = 2 inhalationsStart: 29-09-2980qzvm 1 capsule by inhalation once dailyTiotropium [place]annahon (Spiriva With Handihaler) 18 mcg capsule, w/inhalation device Active 1 CAP INHALATION Daily July 12, 2023 1:00am puncture 1 cap using device; one dose = 2 inhalationsStart: 07-12-2023 take 1 capsule by inhalation once dailyTiotropium [place]annahon (Spiriva With Handihaler) 18 mcg capsule, w/inhalation device Active 1 CAP INHALATION Daily July 12, 2023 12:00am puncture 1 cap using device; one dose = 2 inhalations tiZANidine 4 mg oral tablet (20 sources)Central alpha-2 Adrenergic AgonistStart: 20-00-4999Zvogm: 07-12-2023 End: 89-46-8612Tftbw: 11-23-2022 End: 87-67-9601xhOBBcwbku (ZANAFLEX) 4 mg capsule Take 1 capsule (4 mg total) by mouth as needed in the morning and 1 capsule (4 mg total) as needed at noon and 1 capsule (4 mg total) as needed in the evening for muscle spasms. 11/23/2022 ActiveStart: 53-03-0884qnkq 1 capsule by mouth three times daily as needed for muscle spasmstiZANidine (ZANAFLEX) 4 mg capsule Take 1 capsule (4 mg total) by mouth 3 (three) times a day as needed for muscle spasms. 11/23/2022 ActiveStart: 13-21-5654foqs 1 tablet by mouth every twelve hourstiZANidine HCl 4 MG 1 tablet as needed Orally Twice a day Jun, Activetake 2 tablets by mouth at bedtimetiZANidine HCl - 4 MG Oral Tablet TAKE 2 TABLETS AT BEDTIME. Quantity: 0 Refills: 0 Ordered: 11-Jan-2023 DO ActivetraMADol hydrochloride 50 mg oral tablet (20 sources)Opioid AgonistStart: 08-02-2024 End: 45-84-3522ewxo 1 tablet by mouth every six hours as needed for painUltram 50 mg Tab 50 mg = 1 tab(s), Oral, q6hr, PRN Pain, X 5 day(s), # 12 tab(s), Refills(s) 0, Pharmacy: [facility]/pharmacy #[id number], 182, cm, 08/02/24 9:08:00 EST, Height/Length Dosing, 88.5, kg, 08/02/24 9:08:00 EST, Weight Dosing Start Date: 08/02/24 Stop Date: 08/07/24 Status: OrderedStart: 07-26-2023 End: 33-31-7100Ggatv: 07-26-2023 End: 54-32-1168itiv 1 tablet by mouth four times daily as neededTramadol 50 mg tablet Discontinued 50 MG PO July 26, 2023 1:00am March 03, 2024 2:29pm FreeTextSi tablet as needed Orally QID; Note: Source Status: Taking; Refills: 0; Provider: Rory Eason PStart: 91-28-4697secn 1 tablet by mouth every six hourstraMADol HCl 50 MG 1 tablet as needed Orally QID for 7 days Feb, ActiveStart: 03-13-2019 End: 43-34-9650Iernh: 03-13-2019 End: 10-89-2754paca 1 tablet by mouth four times dailyTramadol 50 mg Tablet Discontinued 50 MG PO Four times daily March 13, 2019 12:00am July 24, 2019 2:52pmubrogepant 100 mg oral tablet (20 sources)take 1 tablet by mouth once daily as neededubrogepant 100 mg tablet Take 100 mg by mouth daily as needed. Active (20 sources)Start: 45-16-6014Elyjj: 82-21-3091Glhea: 08-30-2024 End: 72-74-0774Udqko: 08-30-2024 End: 81-05-2614Ihlic: 08-30-2024 End: 30-37-6666Ewqwx: 08-12-2024 End: 80-13-6351Gmqpw: 08-12-2024 End: 48-02-3560Kwjzi: 06-27-2024 End: 55-51-1115Seafu: 06-25-2024 End: 11-51-5625Ikozj: 42-68-3725Ldkfn: 04-08-2024 End: 83-24-8648Csbkg: 04-05-2024 End: 89-37-4347Xroph: 04-05-2024 End: 43-75-7736Bdpqb: 04-04-2024 End: 26-49-8225Brfou: 77-07-2697Meyom: 03-13-2024 End: 59-17-8970Ddeky: 03-13-2024 End: 00-48-6414Kcmkh: 62-09-4970Pfcsp: 03-08-2024 End: 01-16-1229Wqjgj: 46-47-3575Obfec: 03-06-2024 End: 25-43-7493Mcshr: 77-83-4596Wbcfv: 72-35-7523Bzkky: 03-03-2024 End: 36-61-8066Xkfab: 03-03-2024 End: 09-12-0174Wwanb: 03-03-2024 End: 81-34-8258Haclw: 34-81-8607Ejuke: 12-25-2023 End: 96-24-2916Lwjos: 12-25-2023 End: 33-47-6264Xviav: 12-05-2023 End: 20-64-6253Xxzjm: 09-28-2023 End: 31-09-8323Kecdk: 09-27-2023 End: 93-50-2268Jwlnj: 07-27-2023 End: 76-67-6241Rsddv: 07-26-2023 End: 32-29-5301Apaly: 07-12-2023 End: 11-92-7049Xxbvm: 07-14-2020 End: 74-37-5083Nryse: 08-08-2019 End: 07-26-2023 Completed/Discontinued Medications MedicationDrug Class(es)DatesSig (Normalized)Sig (Original)acetaminophen 325 mg oral tablet (20 sources)Start: 03-13-2024 End: 99-39-1576gaon 2 tablets by mouth every eight hours [...] 5 mg oral tablet (6 sources)Opioid AgonistStart: 47-81-1382vtti 1 tablet by mouth every four hours as neededoxyCODONE-acetaminophen (PERCOCET) 5-325 mg per tablet Take 1 tablet by mouth every 4 (four) hours as needed. 09/22/2023 Suspendedalogliptin 25 mg oral tablet (20 sources)Start: 07-14-2020 End: 09-44-4162Rlnmb: 03-13-2019 End: 68-13-7200JHCMMDtbpr 0.5 mg oral tablet (20 sources)BenzodiazepineStart: 08-08-2019 End: 74-14-2336Pnxhk: 03-13-2019 End: 49-11-5685Jvljh: 03-13-2019 End: 50-53-4686mixi 2 tablets by mouth once dailyAlprazolam (Xanax) 0.5 mg Tablet Discontinued 1 MG PO Daily March 13, 2019 12:00am July 24, 2019 2:52pm End: 54-63-0893wgzw 1 tablet by mouth three times daily as neededALPRAZolam (Xanax) 0.5 mg tablet Take 1 tablet (0.5 mg) by mouth 3 times a day as needed. 10/24/2023 Discontinued (Therapy completed)10 ml aminophylline 25 mg/ml injection (1 source)Start: 02-05-2025 End: 97-67-313144 mg, intravenous, Administer over 1 Minutes, Once, On Mon02/05/25 at 1000, For 1 doseStart: 02-05-2025 End: 33-78-564580 mg, intravenous, Administer over 1 Minutes, Once, On Mon02/05/25 at 1000, For 1 doseamLODIPine 10 mg oral tablet (20 sources)Dihydropyridine Calcium Channel BlockerStart: 04-01-2018 End: 85-01-8790Ixzqc: 04-01-2018 End: 94-12-7232qaom 5 mg by mouth once dailyAmlodipine Discontinued 5 MG PO Daily April 01, 2018 12:00am July 24, 2019 2:52pmStart: 91-47-5820xrow 1 tablet by mouth once dailyNorvasc 5 mg Tab 5 mg = 1 tab(s), Oral, Daily, Refills(s) 0 Start Date: 10/31/13 Status: Orderedbaclofen 10 mg oral tablet (17 sources)gamma-Aminobutyric Acid-ergic AgonistStart: 03-03-2024 End: 84-18-4865Zwrtg-Glucose Meter,Continuous (Freestyle Jigar 3 [place]) misc (10 sources)Start: 12-25-2023 End: 66-52-2531Hawxw-Glucose Meter,Continuous (Freestyle Jigar 3 [place]) misc Discontinued 0 .Route December 24, 2023 11:00pm December 28, 2023 10:03am As directedStart: 12-25-2023 End: 19-40-2972Nscbp-Glucose Meter,Continuous (Freestyle Jigar 3 [place]) misc Discontinued 0 .Route December 25, 2023 12:00am December 28, 2023 11:03am As directedBlood-Glucose Sensor (Freestyle Jigar 3 Sensor) device (12 sources)Start: 12-25-2023 End: 30-54-8934Psmpd-Glucose Sensor (Freestyle Jigar 3 Sensor) device Discontinued 0 .Route December 24, 2023 11:00pm December 28, 2023 10:03am As directedStart: 12-25-2023 End: 57-34-3809Qwsae-Glucose Sensor (Freestyle Jigar 3 Sensor) device Discontinued 0 .Route December 25, 2023 12:00am December 28, 2023 11:03am As directedBlood-Glucose,Hvac Estimator,Cont (Freestyle Jigar 3 [place]) misc (2 sources)Start: 12-25-2023 End: 20-49-4534Aitkg-Glucose,Hvac Estimator,Cont (Freestyle Jigar 3 [place]) misc Discontinued 0 .Route December 242:00am December 28, 2023 11:03am As directedbusPIRone hydrochloride 10 mg oral tablet (20 sources)Start: 03-13-2019 End: 36-87-9043gmetras carbonate 1250 mg / cholecalciferol 0.01 mg oral tablet (11 sources)Vitamin DStart: 08-30-2024 End: 43-70-2438Yfuti: 08-30-2024 End: 61-60-4824ndfd 1 tablet by mouth once dailyCalcium Carbonate-Vitamin D3 (Oyster Shell Calcium-Vit D3) 500 mg-10 mcg (400 unit) tablet Discontinued 1 TAB PO Daily September 05, 2024 3:30pm October 10, 2024 7:18pmCalcium Carbonate-Vitamin D3 (Oyster Shell Calcium-Vit D3) 500 mg-5 mcg (200 unit) Tablet (5 sources)Start: 08-12-2024 End: 99-70-8721loae 2 tablets by mouth once at mealtimeCalcium Carbonate-Vitamin D3 (Oyster Shell Calcium-Vit D3) 500 mg-5 mcg (200 unit) Tablet Discontinued 2 TAB PO 3x/Day with meals August 12, 2024 12:00am August 30, 2024 9:16am Start: 14-48-4798klkv 2 tablets by mouth once at mealtimeCalcium Carbonate- Vitamin D3 (Oyster Shell Calcium-Vit D3) 500 mg-5 mcg (200 unit) Tablet Active 2 TAB PO 3x/Day with meals August 12, 2024 12:00amcephalexin 500 mg oral capsule (11 sources)Cephalosporin AntibacterialStart: 04-19-2024 End: 20-90-3084ljliizcFBQ 0.5 mg oral tablet (20 sources)BenzodiazepineStart: 04-26-2024 End: 06-12-3855slhmqQSZ 5 mg oral tablet (20 sources)BenzodiazepineStart: 07-26-2023 End: 51-12-1143Xthst: 05-21-2020 End: 57-30-8227bnezgzwsexh hydrochloride 20 mg oral tablet (20 sources)AnticholinergicStart: 05-22-2020 End: 53-22-4159ztskfrjfinh hyclate 100 mg oral capsule (20 sources)Tetracycline-class DrugStart: 08-02-2024 End: 04-13-2789Ckyka: 97-11-0787ikim 1 capsule by mouth once dailydoxycycline hyclate 100 mg Cap 100 mg = 1 cap(s), Oral, Daily, Take 1 pill the day before the procedure and 1 pill after the procedure, # 2 cap(s), Refills(s) 0, Pharmacy: [facility]/pharmacy #[id number], 182, cm, 01/30/23 10:24:00 EDT, Height/Length Dosing, 94, kg, 01/30/23 10:24:00 EDT, Weight Dosing Start Date: 01/30/23 Status: Ordered0.5 ml dulaglutide 1.5 mg/ml auto-injector (20 sources)GLP-1 Receptor AgonistStart: 04-04-2024 End: 95-17-3553Ncazlafvlwe (Trulicity) 0.75 mg/0.5 mL pen injector Discontinued MG SUBCUT April 04, 2024 12:00am April 05, 2024 2:02pmStart: 07-12-2023 inject 0.5 mL by subcutaneous injection every weekdulaglutide 0.75 mg/0.5 mL pen injector Inject 0.5 mL (0.75 mg total) under the skin once a week. 07/12/2023 ActiveStart: 07-27-2021 End: 93-98-1697efavbh 0.75 mg by subcutaneous injection every weekdulaglutide (TRULICITY) 1.5 mg/0.5 mL pen injector Inject 0.75 mg under the skin once a week. 01/30/2023 ActiveStart: 07-27-2021 End: 00-09-9306YPIaapfavn 30 mg delayed release oral capsule (20 sources)Serotonin and Norepinephrine Reuptake InhibitorStart: 03-13-2024 End: 59-66-4079jlse 1 capsule by mouth in the morningDULoxetine (CYMBALTA) 60 mg capsule Take 1 capsule (60 mg total) by mouth in the morning. Activeferrous sulfate 325 mg oral tablet (20 sources)Start: 03-06-2024 End: 07-99-6212umsj 1 tablet by mouth every other dayFerrous Sulfate 325 mg (65 mg iron) tablet Discontinued 325 MG PO Q2D March 06, 2024 12:00am April 23, 2024 1:48pmStart: 07-26-2023 End: 81-26-9067Zwpej: 07-26-2023 End: 87-73-0131Tnlizqc Sulfate (Slow Fe) 137 mg (45 mg iron) tablet extended release Discontinued MG PO July 26, 2023 1:00am March 03, 2024 2:28pmStart: 86-80-5951tqyl 1 tablet by mouth three times weeklySlow Fe 142 (45 Fe) MG 1 tablet Orally Three times a Week for 30 day(s) Apr, Activetake 1 tablet by mouth once dailyferrous sulfate, 325 mg ferrous sulfate, tablet Take 1 tablet by mouth once daily. Active1.5 ml fremanezumab-vfrm 150 mg/ml prefilled syringe (20 sources)Start: 05-07-2024 End: 70-91-1894Bwjbg: 67-48-6382qtklfo 1.5 mL by subcutaneous injection every 30 daysAJOVY AUTOINJECTOR 225 mg/1.5 mL Inject 1.5 mL (225 mg total) under the skin every 30 (thirty) days. 07/18/2023 ActiveStart: 07-12-2023 End: 66-86-1190Vbneb: 07-12-2023 End: 82-15-3441Wjggmvsgojiq-Vfrm (Ajovy Autoinjector) 225 mg/1.5 mL auto- injector Discontinued 225 MG SUBCUT Q30D July 12, 2023 1:00am March 03, 2024 2:28pmhydroCHLOROthiazide 25 mg / losartan potassium 100 mg oral tablet (20 sources)Thiazide Diuretic, Angiotensin 2 Receptor BlockerStart: 04-01-2018 End: 40-01-5647Uxvsz: 04-01-2018 End: 92-12-0453pgpa 1 tablet by mouth once dailyLosartan-Hydrochlorothiazide 100-25 mg Tablet Discontinued 1 TAB PO Daily April 01, 2018 12:00am March 13, 2019 8:00amhydroCHLOROthiazide 12.5 mg / olmesartan medoxomil 40 mg oral tablet (20 sources)Thiazide Diuretic, Angiotensin 2 Receptor BlockerStart: 07-24-2019 End: 93-34-2770Jtsaz: 07-24-2019 End: 36-45-5339nkbr 1 tablet by mouth once dailyOlmesartan-Hydrochlorothiazide (Benicar Hct) 40-12.5 mg Tablet Discontinued 1 TAB PO Daily 2019 1:00am July 14, 2020 12:39pmibuprofen 200 mg oral tablet (20 sources)Nonsteroidal Anti-inflammatory DrugStart: 07-26-2023 End: 93-78-8104mrhc 1 tablet by mouth three times daily at mealtime as needed Ibuprofen 200 MG 1 tablet with food or milk as needed Orally Three times a day ActiveInsulin Aspart U-100 (Novolog Flexpen U-100 Insulin) 100 unit/mL (3 mL) Insulin Pen (10 sources)Start: 03-13-2024 End: 90-89-8714Hdmnrnz Aspart U-100 (Novolog Flexpen U-100 Insulin) 100 unit/mL (3 mL) Insulin Pen Discontinued 0 UNIT SUBCUT 3X/Day with meals and bedtime 0 March 13, 2024 12:00am April 05, 2024 3:27pm Please contact the information source for Protocol details.Start: 03-13-2024 End: 97-74-0950Oewkysk Aspart U-100 (Novolog Flexpen U-100 Insulin) 100 unit/mL (3 mL) Insulin Pen Discontinued 0 UNIT SUBCUT 3X/Day with meals and bedtime 0 March 12, 2024 11:00pm April 05, 2024 2:27pm Please contact the information source for Protocol details.Start: 78-69-9782Udzxxtj Aspart U-100 (Novolog Flexpen U-100 Insulin) 100 unit/mL (3 mL) Insulin Pen Active 0 UNIT TELLEZ BCUT 3X/Day with meals and bedtime 0 March 13, 2024 12:00amInsulin Aspart U- 100 (Novolog Flexpen U-100 Insulin) 100 unit/mL (3 mL) insulin pen (18 sources)Start: 04-08-2024 End: 13-84-0533Uteimap Aspart U-100 (Novolog Flexpen U-100 Insulin) 100 unit/mL (3 mL) insulin pen Discontinued 0 UNIT SUBCUT 3X/Day with meals and bedtime April 08, 2024 4:23pm May 07, 2024 5:32pm Please contact the information source for Protocol details.Start: 04-08-2024 End: 45-91-1112Sajmvym Aspart U-100 (Novolog Flexpen U-100 Insulin) 100 unit/mL (3 mL) insulin pen Discontinued 0 UNIT SUBCUT 3X/Day with meals and bedtime April 08, 2024 3:23pm May 07, 2024 4:32pm Please contact the information source for Protocol details.Start: 93-14-0544Yncfvyc Aspart U-100 (Novolog Flexpen U-100 Insulin) 100 unit/mL (3 mL) insulin pen Active 0 UNIT TELLEZ BCUT 3X/Day with meals and bedtime April 08, 2024 3:23pm Please contact the information source for Protocol details.Start: 04-05-2024 End: 92-38-3588Aswtgtb Aspart U-100 (Novolog Flexpen U-100 Insulin) 100 unit/mL (3 mL) insulin pen Discontinued 0 UNIT SUBCUT 3X/Day with meals and bedtime April 05, 2024 3:15pm April 08, 2024 4:25pm Please contact the information source for Protocol details.Start: 04-05-2024 End: 89-68-2798Ovahela Aspart U-100 (Novolog Flexpen U-100 Insulin) 100 unit/mL (3 mL) insulin pen Discontinued 0 UNIT SUBCUT 3X/Day with meals and bedtime April 05, 2024 2:15pm April 08, 2024 3:25pm Please contact the information source for Protocol details.3 ml insulin glargine 100 unt/ml pen injector (20 sources)Insulin AnalogStart: 03-03-2024 End: 60-24-9559Zsvwk: 02-55-4027qfatiz 35 [IU] by subcutaneous injection at bedtimeinsulin glargine 100 units/mL SubQ Malaika 10 mL 35 unit(s), SubCutaneous, Bedtime, Refills(s) 0 Start Date: 02/21/24 Status: Ordered Repeat number: 1 Insulin Lispro (Humalog Kwikpen Insulin) 100 unit/mL insulin pen (12 sources)Start: 03-03-2024 End: 29-37-0852Rnbgaee Lispro (Humalog Kwikpen Insulin) 100 unit/mL insulin pen Discontinued 1 sliding scale dose SUBCUT As Directed March 02, 2024 11:00pm March 08, 2024 5:26pmStart: 03-03-2024 End: 76-71-4584Lohujzw Lispro (Humalog Kwikpen Insulin) 100 unit/mL insulin pen Discontinued 1 sliding scale dose SUBCUT As Directed March 03, 2024 12:00am March 08, 2024 6:26pmStart: 17-94-2508Fyomegb Lispro (Humalog Kwikpen Insulin) 100 unit/mL insulin pen Active 1 sliding scale dose SUBCUTAs Directed March 03, 2024 12:42iu009 actuat ipratropium bromide 0.017 mg/actuat metered dose inhaler (17 sources)AnticholinergicStart: 03-03-2024 End: 00-08-0115Lbgir: 03-03-2024 End: 18-68-7508Ogieorkvqin [place]annahon (Atrovent Hfa) 17 mcg/actuation HFA aerosol inhaler Discontinued 2 INH INHALATION Three times daily March 03, 2024 12:00am March 13, 2024 1:06pmKetorolac (20 sources)Nonsteroidal Anti-inflammatory Drug, Cyclooxygenase InhibitorStart: 81-51-4793Othnidd per 15 mg Jan, 2 ccStart: 37-90-7694Nmasier per 15 mg Jan, 2 ccStart: 85-10-2045Prnoyoe per 15 mg Jan, 2 cc lansoprazole 30 mg delayed release oral capsule (20 sources)Proton Pump InhibitorStart: 07-24-2019 End: 83-17-5518Uklkztmlsis Supplements (Nutra Pro High Protein) powder (12 sources)Start: 03-03-2024 End: 49-49-6262Kqmclkwsgag Supplements (Nutra Pro High Protein) powder Discontinued 1 EACH PO Twice daily March 02, 2024 11:00pm March 08, 2024 5:26pmStart: 03-03-2024 End: 54-46-2399Nrmfvurwulv Supplements (Nutra Pro High Protein) powder Discontinued 1 EACH PO Twice daily March 03, 2024 12:00am March 08, 2024 6:26pmStart: 21-19-5526Azyjllgcgjn Supplements (Nutra Pro High Protein) powder Active 1 EACH PO Twice daily March 03, 2024 12:00amolmesartan medoxomil 5 mg oral tablet (20 sources)Angiotensin 2 Receptor BlockerStart: 03-13-2019 End: 59-77-8697vfgHZCLSD hydrochloride 10 mg oral tablet (20 sources)Opioid AgonistStart: 03-03-2024 End: 35-28-5112Xdamh: 92-42-3261junl 2 tablets by mouth every six hours as needed for painoxyCODONE 5 mg Tab 10 mg = 2 tab(s), Oral, q6hr, PRN Pain, # 18 tab(s), Refills(s) 0 Start Date: 02/21/24 Status: OrderedStart: 11-14-2023 End: 09-78-7546znwp 1 tablet by mouth every six hours as needed for pain oxyCODONE (ROXICODONE) 5 mg immediate release tablet Indications: Post-op pain Take 1 tablet (5 mg total) by mouth every 6 (six) hours as needed for pain for up to 7 days. Max Daily Amount: 20 mg 10 tablet 11/14/2023 11/21/2023 Active polyethylene glycol 3350 71919 mg powder for oral solution (20 sources)Osmotic LaxativeStart: 02-21-2024 End: hr ranolazine 1000 mg extended release oral tablet (20 sources)Anti-anginalStart: 07-10-2014 End: 77-61-3827wzfyoxktzrk (Lexiscan) injection 0.4 mg (1 source)Start: 02-05-2025 End: 50.4 mg, intravenous, Once, On Mon02/05/25 at 0930, For 1 dose rimegepant 75 mg disintegrating oral tablet (20 sources)Start: 05-07-2024 End: 92-40-9113Igbqn: 04-04-2024 End: 75-89-8327Jixgh: 04-04-2024 End: 86-84-4641zhap 1 tablet by mouth onceRimegepant (Nurtec Odt) 75 mg tablet,disintegrating Discontinued 75 MG PO Once April 04, 2024 12:00am April 23, 2024 1:49pmStart: 75-93-2824omag 1 tablet by mouth every twenty- four hours as needed for headacheNurtec ODT 75 mg oral tablet, disintegrating 75 mg = 1 tab(s), Oral, q24hr, PRN Migraine headache, Refills(s) 0 Start Date: 02/12/24 Status: OrderedStart: 07-12-2023 End: 31-75-6390Umxtm: 07-12-2023 End: 86-20-2107goqx 1 tablet by mouth once daily as needed for headache Rimegepant (Nurtec Odt) 75 mg tablet,disintegrating Discontinued 75 MG PO Daily as needed for migraine headache July 12, 2023 1:00am March 13, 2024 1:06pmrOPINIRole 0.5 mg oral tablet (20 sources)Nonergot Dopamine AgonistStart: 04-04-2024 End: 72-07-9989Hqkbn: 04-04-2024 End: 59-44-0558izob 1 tablet by mouth three times dailyRopinirole 0.5 mg tablet Discontinued 0.5 MG PO Three times daily 270 90 July 04, 2024 4:43pm August 11, 2024 4:40amStart: 04-01-2018 End: 53-06-6202Syyhk: 04-01-2018 End: 45-24-7012Fwebr: 01-24-2011 End: 51-20-5546iitb 1 tablet by mouth three times dailyropinirole 1 mg Tab 1 mg = 1 tab(s), Oral, TID, Refills(s) 0 Start Date: 02/12/24 Status: Ordered Repeat number: 1Sennosides (Senna Laxative) 8.6 mg tablet (12 sources)Start: 03-03-2024 End: 79-01-4592afyo 1 tablet by mouth twice dailySennosides (Senna Laxative) 8.6 mg tablet Discontinued 8.6 MG PO Twice daily March 02, 2024 11:00pm March 08, 2024 5:26pmStart: 03-03-2024 End: 26-06-5021xgrp 1 tablet by mouth twice dailySennosides (Senna Laxative) 8.6 mg tablet Discontinued 8.6 MG PO Twice daily March 03, 2024 12:00am March 08, 2024 6:26pmStart: 78-74-4007ohvd 1 tablet by mouth twice daily Sennosides (Senna Laxative) 8.6 mg tablet Active 8.6 MG PO Twice daily March 03, 2024 12:00amsulfamethoxazole 800 mg / trimethoprim 160 mg oral tablet (11 sources)Dihydrofolate Reductase Inhibitor Antibacterial, Sulfonamide AntimicrobialStart: 04-19-2024 End: 85-00-0327Ucwbe: 04-19-2024 End: 63-06-3724xrjd 1 tablet by mouth twice dailySulfamethoxazole-Trimethoprim 800-160 mg tablet Discontinued 1 TAB PO Twice daily April 19, 2024 1:00am April 23, 2024 1:50pmTc-99m tetrofosmin (Myoview) injection 10 millicurie (1 source)Start: 02-05-2025 End: millicurie, intravenous, Once in imaging, Starting on Mon02/05/25 at 0817, For 1 dose, Jqjplhsefe63 to 90 minutes prior to imaging unless otherwise indicated.Tc-99m tetrofosmin (Myoview) injection 30 millicurie (1 source)Start: 02-05-2025 End: millicurie, intravenous, Once in imaging, Starting on Mon02/05/25 at 0927, For 1 dose, Kpkpvyqiku18 to 90 minutes prior to imaging unless otherwise indicated.Toradol 30 mg/ml (20 sources)Start: 94-57-2167Keeclye 30 mg/ml Jul, 60 mgStart: 37-02-2280Xzoynnj 30 mg/ml Jul, 60 mgStart: 93-32-7423Hmgavst 30 mg/ml Jul, 60 mgStart: 02-19-8892Kzuakva 30 mg/ml Jun, 60 mgtraZODone hydrochloride 50 mg oral tablet (20 sources)Serotonin Reuptake InhibitorStart: 07-24-2019 End: 12-40-8347Ceqlb: 07-24-2019 End: 76-71-6948lwma 1 tablet by mouth at bedtimeTrazodone 50 mg tablet Discontinued 50 MG PO Bedtime July 24, 2019 1:00am July 14, 2020 1 2:40pmTriamcinolone (20 sources)CorticosteroidStart: 70-73-5454JUVTKED - 10 mg Sep, 1 cc varenicline 1 mg oral tablet (18 sources)Partial Cholinergic Nicotinic AgonistStart: 07-14-2020 End: 67-72-3622xbve 1 tablet by mouth twice daily, then take 1 tablet by mouth onceVarenicline Tartrate (Chantix Continuing Month Box) 1 mg tablet Discontinued 1 MG PO Twice daily July 14, 2020 1:00am July 12, 2023 6:30pmvitamin b12 1 mg oral capsule (1 source)Vitamin Q90Hkvda: 11-05-2024 End: 11-05-2024 Problems Active Problems Problem ClassificationProblemDateDocumented DateEpisodic/ChronicAbdominal pain (20 sources)Abdominal pain; Translations: [Unspecified abdominal pain]Episodic Acute and unspecified renal failure (20 sources)Renal failure syndrome; Translations: [Unspecified kidney failure] ChronicAcute cerebrovascular disease (1 source)Acute cerebrovascular diseaseOnset: 37-38-1980Yemsz myocardial infarction (20 sources)Myocardial infarction; Translations: [Acute myocardial infarction, unspecified]Onset: 537497-56-7002XigsujxKtqlmsdmwrxvty/social admission (13 sources)Drug therapy finding; Translations: [Other specified counseling] 79-39-6691GxplbgkjOhgzrig disorders (20 sources)Anxiety; Translations: [Anxiety disorder, unspecified]Onset: 07-27-2021 Resolved: 70-87-6580SknywjeEvxpge (20 sources)Asthmatic bronchitis; Translations: [Unspecified asthma, uncomplicated]Onset: 991676-69-5686PrsscmyOjymnpd dysrhythmias (20 sources)Atrial fibrillation; Translations: [Unspecified atrial fibrillation] Onset: 807707-30-3455AokreucWkpgtts kidney disease (20 sources)Chronic kidney disease stage 3; Translations: [Chronic kidney disease, stage 3 (moderate)]Onset: 10-19-2021 Resolved: 38-82-7594GvkttzpGbdrfku kidney disease (7 sources)Chronic kidney disease; Translations: [Stage 3 chronic kidney disease, unspecified whether stage 3aor 3b CKD]Onset: 10-18-2021 Resolved: 53-03-7739Uhlbsym obstructive pulmonary disease and bronchiectasis (20 sources)Pulmonary emphysema; Translations: [Chronic obstructive lung disease]Onset: 604759-80-1550MwyhggdYdmpmmuhbl heart failure; nonhypertensive (20 sources)Congestive heart failure; Translations: [Heart failure]Onset: 223450-11-4138ClxjhfjPjyaqfqv atherosclerosis and other heart disease (20 sources)Disorder of coronary artery; Translations: [Coronary atherosclerosis of unspecified type of vessel,[facility] or graft]Onset: 11-05-2013 Resolved: 67-63-7746CgwnxwyCdbzzrgzes and other anemia (1 source)Anemia in chronic kidney disease; Translations: [Anemia in chronic kidney disease]Onset: 47-44-6309JmbjgigVbmqcbbyru and other anemia (1 source)Iron deficiency -90-1178PlctrfewLjsdtbbr, dementia, and amnestic and other cognitive disorders (1 source)DementiaOnset: 343439-09-7140HvgmnkfYujsgqti mellitus with complications (20 sources)Peripheral vascular disorder due to diabetes mellitus; Translations: [Type 2 diabetes mellitus withother circulatory complications]Onset: 06-23-2021 Resolved: 95-22-8542ZlxxrcoJlajqmp on above:Outside Source Comment: Comment on above: w/ surrounding cellulitisDiabetes mellitus without complication (20 sources)Diabetes mellitus; Translations: [Diabetes mellitus without mention of complication, type II or unspecified type, not stated as uncontrolled]Onset: 562172-51-3847KtsgvihNtjilaqh of white blood cells (1 source)Leukocytosis; Translations: [Elevated white blood cell count, unspecified]Onset: 89-63-0358TsibiwdYhblsmnvi of lipid metabolism (20 sources)Hyperlipidemia; Translations: [Other and unspecified hyperlipidemia] Onset: 07-17-2015 Resolved: 52-50-9688PyszdfzRlhxtuf on above:Outside Source Comment: Overview: Cont home atorvaEsophageal disorders (20 sources)Gastroesophageal reflux disease; Translations: [Gastro-esophageal reflux disease without esophagitis]Onset: 07-27-2021 Resolved: 59-66-2992StovbgtNnfglikvl hypertension (20 sources)Hypertensive disorder; Translations: [Essential (primary) hypertension]Onset: 11-05-2013 Resolved: 077827-72-7312ItnzpjgAmwhzoiy (20 sources)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; Translations: [Atherosclerosis of [facility] arteries of extremities with gangrene, right leg] Onset: 10-18-2023 Resolved: 68-15-4707GbkefthSybgbfkt (1 source)Qcopzdnd68-60-2684MrvodjqSaau and other crystal arthropathies (20 sources)Gout; Translations: [Gout, unspecified]Onset: 02-15-2022 Resolved: 14-09-0706JdrpsujVhuveskt; including migraine (9 sources)Migraine; Translations: [Migraine, unspecified, not intractable, without status migrainosus]Onset: 439957-13-7959GpryztqOrniodxlvgg of prostate (20 sources)Benign prostatic hypertrophy with outflow obstruction; Translations: [Benign prostatic hyperplasia with lower urinary tract symptoms]Onset: 34-26-4086QfoytioTgbleibsdhjk with complications and secondary hypertension (20 sources)Hypertensive renal disease; Translations: [Hypertensive chronic kidney disease with stage 1 throughstage 4 chronic kidney disease, or unspecified chronic kidney disease]Onset: 09-21-2021 Resolved: 98-72-0883EvejggqJnnggxvlu arthritis and osteomyelitis (except that caused by tuberculosis or sexually transmitted disease) (20 sources)Acute osteomyelitis of right foot; Translations: [Other acute osteomyelitis, right ankle and foot]Onset: hronic Inflammatory conditions of male genital organs (20 sources)Orchitis; Translations: [Orchitis]Onset: 91-68-3811Sfafrcdm Nutritional deficiencies (20 sources)Vitamin D deficiency; Translations: [Vitamin D deficiency, unspecified]Onset: 02-15-2022 Resolved: 51-57-9836XmfjaohIxbicefload deficiencies (20 sources)Cobalamin deficiency; Translations: [Deficiency of other specified B group vitamins]Onset: 684526-37-2174NbrhrclvWvvszvfahgclha (20 sources)Arthritis; Translations: [Unspecified osteoarthritis, unspecified site]Onset: 495142-42-0458SflomoaGaipz acquired deformities (20 sources)Contracture of joint of hand; Translations: [Contracture, unspecified hand]ChronicOther aftercare (20 sources)Long-term current use of insulin; Translations: [USP (current) use of insulin]05-35-6840DnpiywrrKzxjw and ill-defined heart disease (19 sources)Heart qzhywzm70-10-3969JygujxyPdryc bone disease and musculoskeletal deformities (15 sources)History of amputation of right leg through tibia and fibula; Translations: [Acquired absence of right leg below knee]Onset: 02-27-2025 95-88-6848IgueeudRvfuafj on above:02/2024 [facility] [place] Simon Hernández VascularOther bone disease and musculoskeletal deformities (9 sources)Acquired absence of right leg below knee; Translations: [Below knee amputation status]Onset: 509032-26-7910JtmipsnUrdvv bone disease and musculoskeletal deformities (1 source)Amputated right lower limb below knee; Translations: [Acquired absence of right leg below knee]Onset: 99-29-5669UaglgnmKgnnu circulatory disease (1 source)Other specified symptoms and signs involving the circulatory and respiratory systems; Translations:[Other specified symptoms and signs involving the circulatory and respiratory systems]Onset: 03-70-8614ZydakxddCpwye circulatory disease (3 sources)Critical lower limb ischemiaOnset: 020544-05-2025Fmmpyrqm Comment on above:Outside Source Comment: Last Assessment & Plan: Right below-knee amputation. Will do it here at [place].Other connective tissue disease (20 sources)Pain in limb; Translations: [Pain in leg, unspecified]EpisodicOther connective tissue disease (5 sources)Pain in right legOnset: 10-08-2021 Resolved: 51-73-5434WgznnnstVosuj connective tissue disease (19 sources)Rnheqvgxovyhc26-78-2877YsfkqmbxJgmvm connective tissue disease (1 source)Pain in left armEpisodicOther connective tissue disease (1 source)Pain in left rbb65-84-3114MifyedksVeftwus on above:Outside Source Comment: Comment on above: 2/2 to fall. No fracture.Other diseases of bladder and urethra (7 sources)Mass of urinary bladder; Translations: [Other specified disorders of bladder]85-81-5574BqnrbcsGybri diseases of bladder and urethra (1 source)Other specified disorders of bladderChronicOther diseases of bladder and urethra (1 source)Neurogenic qnrgkyb35-09-8563HsioyrjJpwgw diseases of kidney and ureters (2 sources)Urinary tract obstruction; Translations: [Other obstructive and reflux uropathy]Onset: 18-38-7192CimqhkhjEdwdj disorders of stomach and duodenum (11 sources)Disorder of stomach; Translations: [Other diseases of stomach and duodenum]63-32-7068YrdjrcznOktvw disorders of stomach and duodenum (2 sources)Other diseases of stomach and duodenum; Translations: [Other specified disorders of stomach and duodenum]49-79-6294IbalbsfcTmulh endocrine disorders (20 sources)Testicular hypofunction; Translations: [Testicular hypofunction] ChronicOther hereditary and degenerative nervous system conditions (20 sources)Restless legs; Translations: [Restless legs syndrome]Onset: 450858-87-9974JrgqobkBcguy hereditary and degenerative nervous system conditions (17 sources)Restless legs syndrome; Translations: [Restless legs syndrome (RLS)] Onset: 07-27-2021 Resolved: 97-50-3908NqyrfzdCtlcg injuries and conditions due to external causes (15 sources)Hypothermia; Translations: [Hypothermia, initial encounter] 07-50-8110NrbgjtzjOpdqt injuries and conditions due to external causes (4 sources)Hypothermia, initial encounter; Translations: [Hypothermia]03-08-2024 EpisodicOther lower respiratory disease (20 sources)Solitary nodule of lung; Translations: [Solitary pulmonary nodule] EpisodicOther male genital disorders (20 sources)Impotence of organic origin; Translations: [Male erectile dysfunction, unspecified]ChronicOther male genital disorders (16 sources)Male erectile dysfunction, unspecified; Translations: [Erectile dysfunction]Onset: 07-27-2021 Resolved: 88-17-9525RoftjooUjypb nervous system disorders (20 sources)Neuropathy; Translations: [Polyneuropathy, [...] Translations: [Carpal tunnel syndrome, right upper limb]Onset: 142633-27-2561FtuehvwFuspk nervous system disorders (9 sources)Polyneuropathy; Translations: [Polyneuropathy, unspecified]Onset: 187810-74-0161RizysgfBgwiw nervous system disorders (20 sources)Carpal tunnel syndrome; Translations: [Carpal tunnel syndrome, unspecified upper limb]Onset: 190683-33-5255SvawoxdFmrwa nervous system disorders (7 sources)Polyneuropathy, unspecified; Translations: [Mononeuritis of unspecified site]Onset: 495927-45-5264RvhjcjwGmlcj nervous system disorders (1 source)Other chronic pain; Translations: [Other chronic pain]Onset: 72-31-5586KbmsshxGzklu nervous system disorders (1 source)Metabolic cieldemmigcfmy84-57-1033LvnkjoiStloe nervous system disorders (20 sources)Skin sensation disturbance; Translations: [Paresthesia of skin] EpisodicOther nervous system disorders (1 source)Other acute postprocedural pain; Translations: [Other acute postprocedural pain]Onset: 36-14-3293AouwldwhUkhdz nervous system disorders (20 sources)Tremor; Translations: [Tremor, unspecified]13-19-9675AeeblkobDymjx nervous system disorders (8 sources)Paresthesia; Translations: [Paresthesia of skin]34-96-9155Nlfljizp Other nervous system disorders (8 sources)Numbness; Translations: [Anesthesia of skin]68-50-9714DxqmwoouSfnir nervous system disorders (9 sources)Anesthesia of skin; Translations: [Disturbance of skin sensation] Onset: 784339-22-8003EmvxvnumYfrxn nervous system disorders (9 sources)Paresthesia of skin; Translations: [Disturbance of skin sensation] Onset: 466737-09-8957KlwlhqfkXvkxd non-traumatic joint disorders (1 source)Hip kusy16-14-7855NbbmwnvzMhzgr nutritional; endocrine; and metabolic disorders (20 sources)Obesity; Translations: [Obesity, unspecified]ChronicOther nutritional; endocrine; and metabolic disorders (20 sources)Obese class II; Translations: [Body mass index (BMI) 35.0-35.9, adult]ChronicOther nutritional; endocrine; and metabolic disorders (20 sources)Obese class I; Translations: [Body mass index (BMI) 34.0-34.9, adult]07-04-9431PnkqpewSnxtk nutritional; endocrine; and metabolic disorders (4 sources)Body mass index (BMI) 34.0-34.9, adult; Translations: [Body Mass Index 34.0-34.9, adult]Onset: 10-19-2021 Resolved: 73-52-0500ItmckimOvptk nutritional; endocrine; and metabolic disorders (14 sources)Hyperbilirubinemia; Translations: [Other disorders of bilirubin metabolism]13-96-7823QmhnappFjlgs nutritional; endocrine; and metabolic disorders (4 sources)Other disorders of bilirubin metabolism; Translations: [Jaundice, unspecified, not of ]Onset: 541395-82-3224JxqjrbrDpkea nutritional; endocrine; and metabolic disorders (9 sources)Body mass index 30+ - obesity; Translations: [Body mass index (BMI) 34.0-34.9, adult]06-46-1937TrqwsluOjyce nutritional; endocrine; and metabolic disorders (10 sources)Hypomagnesemia; Translations: [Hypomagnesemia]17-51-0979HonrichVxuim nutritional; endocrine; and metabolic disorders (16 sources)Hypomagnesemia; Translations: [Disorders of magnesium metabolism] Onset: 461623-47-0280YmpnelfEvkoo nutritional; endocrine; and metabolic disorders (9 sources)Hypocalcemia; Translations: [Hypocalcemia]03-13-0664EgdkaulPbvik nutritional; endocrine; and metabolic disorders (17 sources)Hypocalcemia; Translations: [Hypocalcemia]Onset: 08-11-2024 31-49-4766TjvfedkOokky nutritional; endocrine; and metabolic disorders (6 sources)Overweight in adulthood with body mass index of 25 or more but less than 30; Translations: [Overweight]EpisodicOther screening for suspected conditions (not mental disorders or infectious disease) (17 sources)Imaging result abnormal; Translations: [Abnormal findings on diagnostic imaging of other specified body structures]89-49-0285XociieoDkrxs screening for suspected conditions (not mental disorders or infectious disease) (20 sources)Patient encounter status; Translations: [Encounter for screening for malignant neoplasm of colon]Onset: 07-27-2021 Resolved: 64-71-5709PtkdxnuxUchgeddxwy and visceral atherosclerosis (20 sources)Intermittent claudication; Translations: [Peripheral vascular disease, unspecified]Onset: 706399-71-7023ErkrstpUdzrtlttx (except that caused by tuberculosis or sexually transmitted disease) (1 source)Ytqufmxuw67-55-0277KrdstykdEhgbrcdz codes; unclassified (20 sources)Sleep apnea; Translations: [Sleep apnea, unspecified]Onset: 279395-52-5499FtrceicVnxuapcx codes; unclassified (20 sources)Peripheral edema; Translations: [Edema, unspecified]EpisodicResidual codes; unclassified (20 sources)Amnesia; Translations: [Other amnesia]EpisodicResidual codes; unclassified (20 sources)Difficulty sleeping ; Translations: [Sleep disorder, unspecified] EpisodicResidual codes; unclassified (20 sources)Insomnia; Translations: [Insomnia, unspecified]EpisodicResidual codes; unclassified (20 sources)FH: premature coronary heart disease; Translations: [Family history of ischemic heart disease and other diseases of the circulatory system] 47-91-7796GiwlpjnpHwmgzbv on above:Reports mother had quadruple bypass at age of 45Residual codes; unclassified (20 sources)Tobacco user; Translations: [Tobacco use]Onset: EpisodicComment on above:Added secondary to social history documentation. Residual codes; unclassified (2 sources)Other specified postprocedural states; Translations: [Other specified postprocedural states]Onset: 11-69-9016KfvspeumKcvdyxya codes; unclassified (12 sources)Noncompliance with medication regimen; Translations: [Noncompliance with medication regimen]57-40-3435RegqtuvyIjizmzyi codes; unclassified (1 source)H/O Spinal ilfcinp76-30-1302LirvhmggWjvixsbb codes; unclassified (1 source)History of pdsezvzuhlr90-78-2922KoeppzvzShernuhlwjh; intervertebral disc disorders; other back problems (20 sources)Degeneration of lumbar intervertebral disc; Translations: [Other intervertebral disc degeneration, lumbar region]ChronicSubstance-related disorders (20 sources)Smoker; Translations: [Nicotine dependence, unspecified, uncomplicated]Onset: 462257-33-3824AwsrejmKgjpiet on above:Added secondary to documentation in Social History.Unclassified (1 source)Critical limb ischemia of right lower extremity with gangrene ([facility]) [I70.261]Onset: 96-46-2205Sfncaklfbwak (1 source)New PatientOnset: 49-27-7994Twtgnwrweitn (4 sources)Patient encounter -92-6670Gnncltrhmcwz (1 source)Chronic ulcer of right dtxt89-05-2879Qskapkrjvtwt (1 source)Chronic ulcer of right yvsh07-24-9409Hgbwiaektkte (1 source)Long-term current use of drug utikxle27-78-9487Lyfixdakaksv (1 source)Peripheral arterial diseaseOnset: 772366-69-2984Uwphlkdchizd (1 source)Pressure injury of right ankle stage IIIOnset: Unclassified (1 source)Puncture wound of right footOnset: Past or Other Problems Problem ClassificationProblemDateDocumented DateEpisodic/ChronicAcute and unspecified renal failure (18 sources)Acute renal failure syndrome; Translations: [Acute kidney failure, unspecified]Onset: 586662-85-5593DpcrsaxaFioeqaf on above:Outside Source Comment: Comment on above: on YEL7mXrphooj dysrhythmias (14 sources)Palpitations; Translations: [Palpitations]Onset: 03-27-2023 26-34-4047UyxwghbhMlgsakm ulcer of skin (20 sources)Pressure ulcer of right ankle, stage 3; Translations: [Pressure ulcer, ankle]Onset: 11-08-2023 Resolved: 942585-70-4880JrmznocXowdomohgnhdv of surgical procedures or medical care (20 sources)Disorder of amputation stump; Translations: [Other complications of amputation stump]Onset: 11-08-2023 Resolved: 602623-14-0601TnwdjcxkEzvlonbn atherosclerosis and other heart disease (2 sources)Coronary angioplasty status; Translations: [Coronary angioplasty status]Onset: 28-40-8882TyuxixqhMmndncfkmw and other anemia (14 sources)Anemia, unspecified; Translations: [Anemia, unspecified]Onset: 48-90-9668CjjzhxdaJvslbcddut and other anemia (20 sources)Anemia; Translations: [Anemia, unspecified]Onset: 02-12-2024 59-87-2949AwyxauauTlzem and electrolyte disorders (20 sources)Hypokalemia; Translations: [Hypokalemia]Onset: 005136-88-3477 EpisodicGenitourinary symptoms and ill-defined conditions (20 sources)Retention of urine; Translations: [Retention of urine, unspecified] Onset: 88-98-9598GmrphhwnDuxclpsk; including migraine (20 sources)Headache; Translations: [Headache]Onset: EpisodicHeadache; including migraine (5 sources)Headache; including migraineHeart valve disorders (20 sources)Heart murmur; Translations: [Cardiac murmur, unspecified]Onset: 435762-08-2962NoylqrgfOqzdzwc and fatigue (1 source)AstheniaOnset: 897872-76-3550NbwgicmkNfrf disorders (18 sources)Mood disordersOnset: Nausea and vomiting (20 sources)Nausea and vomiting; Translations: [Nausea with vomiting, unspecified]Onset: 059344-75-4025ZmijrnzeKygmzxyxo of unspecified nature or uncertain behavior (1 source)Neoplasm of uncertain behavior of skinOnset: 02-15-2022 Resolved: 89-32-9427JkmkyoxcIjdoyevpkiw chest pain (20 sources)Chest pain; Translations: [Chest pain, unspecified]Onset: 11-10-2023 46-91-1362DywsokhdYrrzh aftercare (12 sources)Follow-up orthopedic assessment; Translations: [Encounter for orthopedic aftercare following surgical amputation]Onset: EpisodicOther aftercare (2 sources)Surgical follow-up; Translations: [Encounter for orthopedic aftercare following surgical amputation]Onset: 876480-91-0758FqthahjxFeefo circulatory disease (14 sources)Low blood pressure; Translations: [Hypotension, unspecified]Onset: 228734-81-1303UwbvitqaNoboc circulatory disease (1 source)Poor peripheral circulation; Translations: [Other specified symptoms and signs involving the circulatory and respiratory systems]86-71-7837Ltxwasmn Other connective tissue disease (1 source)Pain in left legOnset: 10-08-2021 Resolved: 18-86-2583UwkphndqSdjic connective tissue disease (20 sources)Fibromyalgia; Translations: [Fibromyalgia]Onset: 10-30-2023 21-71-4819VwgtebtpLwiqs connective tissue disease (20 sources)Muscle weakness; Translations: [Muscle weakness (generalized)]Onset: 289943-15-9636CelorxugBjzqo connective tissue disease (13 sources)Spasm; Translations: [Other muscle spasm]Onset: EpisodicOther gastrointestinal disorders (20 sources)Diarrhea; Translations: [Diarrhea, unspecified]48-23-2380Sdxidrpi Other hematologic conditions (1 source)Other abnormality of red blood cellsOnset: 02-15-2022 Resolved: 82-48-8474VdtmowquQzrif lower respiratory disease (4 sources)Other nonspecific abnormal finding of lung field; Translations: [OTH NONSPECIFIC ABN FIND LNG FIELD]Onset: 79-81-0450YkutayzpWakxs lower respiratory disease (9 sources)Dyspnea; Translations: [Shortness of breath]Onset: 01-01-2024 42-84-3623GetmmtjbJrlmc lower respiratory disease (1 source)Shortness of breath; Translations: [Shortness of breath]Onset: 33-16-3888SsbjcjckQrnhh male genital disorders (20 sources)Disorder of male genital organ; Translations: [Hydrocele, unspecified]Onset: 031075-00-2720DjytbrthPmlsb nervous system disorders (9 sources)Pain in limb - multiple; Translations: [Paresthesia of skin]Onset: 005663-23-2829KwxaitayGhkcl nervous system disorders (9 sources)Paresthesia of lower extremity; Translations: [Paresthesia of skin] Onset: 024572-31-5800IvgdqjeqCpfhr nervous system disorders (20 sources)Finding related to ability to move; Translations: [Other abnormalities of gait and mobility]Onset: 304054-15-1101MphnhwrjNvxez non- traumatic joint disorders (1 source)Pain in right hipOnset: 07-27-2021 Resolved: 50-98-4329FnktfmdyDtxip nutritional; endocrine; and metabolic disorders (1 source)Abnormal weight lossOnset: 07-27-2021 Resolved: 11-05-4535GcduxqtoAjipgpzo codes; unclassified (20 sources)Edema of lower extremity; Translations: [Localized edema]Onset: 316687-33-0369KumesawmYbgokrcn codes; unclassified (1 source)Insomnia, unspecifiedOnset: 07-27-2021 Resolved: 49-52-0390SftuayczZphfegkf codes; unclassified (20 sources)Altered mental status; Translations: [Altered mental status, unspecified]Onset: 653912-75-4606KjldilrqYcoppses codes; unclassified (9 sources)Altered mental status, unspecified; Translations: [Altered mental status]Onset: 436697-62-2073WytujeivKcwrfero codes; unclassified (1 source)Disorientated; Translations: [Disorientation, unspecified]03-15-2024 EpisodicResidual codes; unclassified (1 source)Chronic back painOnset: 911592-62-3630BjqlogrbGtaafkzv codes; unclassified (1 source)Pain, unspecified; Translations: [Pain, unspecified]Onset: 03-12-2024 EpisodicScreening and history of mental health and substance abuse codes (16 sources)Ex-smoker; Translations: [Personal history of tobacco use]Onset: 232450-47-8136BbdlswndPnarvbr on above:qauit 07/2020;Septicemia (except in labor) (20 sources)Sepsis, unspecified organism; Translations: [Bacterial sepsis]Onset: 03-03-2023 Resolved: 62-17-3225DlwmdegpYoph and subcutaneous tissue infections (20 sources)Abscess of right foot; Translations: [Cutaneous abscess of right foot]Onset: 08-04-2023 Resolved: 319059-42-9845XzpxzvakSfqlgdrlyqj; intervertebral disc disorders; other back problems (20 sources)Neck pain; Translations: [Cervicalgia]Onset: 195757-28-0018 EpisodicSyncope (20 sources)Syncope; Translations: [Syncope and collapse]Onset: 03-04-2024 69-04-2811GjsgchdxYzlcvwxdqtod (1 source)History of amputation of right leg through tibia and cqaxkm95-98-4492 Urinary tract infections (2 sources)Urinary tract infection, site not specified; Translations: [Acute urinary tract infection]Onset: 02-82-5405BuaffyrsXpxbkrk on above:Outside Source Comment: Comment on above: [...] PT was scheduled and no showed, not trackable.[facility] W stress and W radionuclide Sachin 68-09-2394Rxrwft Scoutiscan Myoview cardiac perfusion stress test. No evidence of ischemia or myocardial infarction by perfusion imaging. Normal left ventricular systolic function, ejection fraction 61%. When compared to a study from 2022, no significant interval changes were seen. Signed by: Pascale Arnold 02/05/2025 6:05 PM Dictation workstation: [id number] MMODALInterpreted By: Pascale Arnold, Italo Fernando STUDY: MYOCARDIAL PERFUSION STRESS TEST WITH LEXISCAN Performing facility: [facility], [address], [address], [place] [address] [facility] Provider: Pascale Arnold MD, [facility] PCP: Dr. Wm Lynch Supervising provider: Lui Schmidt DO, [facility] INDICATION: Signs/Symptoms: ,R07.9 Chest pain, unspecified HISTORY: Gender: M; Age: 59 y/o ; Height: HT 182.9 cm cm; Weight: WT 95.709 kg kg. Chest Pain; CAD; High Cholesterol; Diabetes; SOB; COPD; Quit smoking 4 years ago. Cardiac catheterization on 2017. PTCA on 2017. COMPARISON: Previous nuclear testing completed at [facility]. ACCESSION NUMBER(S): [id number] ORDERING CLINICIAN: PASCALE ARNOLD TECHNIQUE: ONE DAY [...] PERFUSION STRESS TEST WITH LEXISCAN Performing facility: [facility], [address], [address], [place] [address] [facility] Provider: Pascale Arnold MD, [facility] PCP: Dr. Wm Lynch Supervising provider: Lui Schmidt DO, [facility] INDICATION: Signs/Symptoms: ,R07.9 Chest pain, unspecified HISTORY: Gender: M; Age: 59 y/o ; Height: HT 182.9 cm cm; Weight: WT 95.709 kg kg. Chest Pain; CAD; High Cholesterol; Diabetes; SOB; COPD; Quit smoking 4 years ago. Cardiac catheterization on 2017. PTCA on 2017. COMPARISON: Previous nuclear testing completed at [facility]. ACCESSION NUMBER(S): [id number] ORDERING CLINICIAN: PASCALE ARNOLD TECHNIQUE: ONE DAY [...] Pascale Arnold 02/05/2025 6:05 PM Dictation workstation: [id number] [facility] Work Phone: [facility] Work Phone: Radiology Study observation (narrative)[facility] Work Phone: NUCLEAR STRESS TESTon [phone] STRESS TEST Interpreted By: Pascale Arnold, and Orquidea Fernando STUDY: MYOCARDIAL PERFUSION STRESS TEST WITH LEXISCAN Performing facility: [facility], [address] [place] [address], [address] Provider: Pascale Arnold MD, FACC PCP: [...] 2017. COMPARISON: Previous nuclear testing completed at [facility]. ACCESSION NUMBER(S): [id number] ORDERING CLINICIAN: PASCALE ARNOLD TECHNIQUE: ONE DAY [...] Pascale Arnold 02/05/2025 6:05 PM Dictation workstation: [id number] Parma Medical Center A1C with Estimated Average Gluon 10-53-9061Ynizwqq [Mass/Vol]192 mg/dLNormHCA Florida Englewood Hospital Physician GroupComment on above:Result Comment: PERFORMED BY:[address] [place], [place] [phone] MEDICAL DIRECTORBREANNE RUTHERFORD M.D.Performed By: #### A1C [facility] eA ####[address] [place], [place] [address]YCJVoX7c (Bld) [Mass fraction]8.3 %High4.3-5.6The [facility] Physician [facility] HospitalComment on above:Result Comment: Increased risk for diabetes: 5.7 - 6.4 diabetes: >6.4 glycemic control for adults with diabetes: <7.0Performed By: #### A1C [facility] eA ####[address] [address]QPDFvkduni aminotransferase [Enzymatic activity/volume] in Serum or PlasmaOrdered By: Teresa Lynch on 10-32-4868SLJ [Catalytic activity/Vol]Alanine aminotransferase [Enzymatic activity/volume] in Serum or PlasmaSt. Mary'S Medical CenterAlbumin [Mass/volume] in Serum or Plasma by Bromocresol green (BCG) dye binding methoOrdered By: Teresa Lynch on 62-11-4333Txwhxdg BCG dye [Mass/Vol] Albumin [Mass/volume] in Serum or Plasma by Bromocresol green (BCG) dye binding metho3.5-5.7FMarion HospitalAlkaline phosphatase [Enzymatic activity/volume] in Serum or PlasmaOrdered By: Teresa Lynch on 00-49-4776EJK [Catalytic activity/Vol]Alkaline phosphatase [Enzymatic activity/volume] in Serum or UwdksoVbvw86-709KijlciiitSt. Mary'S Medical CenterAnisocytosis LM Ql (Bld)Ordered By: Maurice Francis on 59-23-8168Jojdzretwpla Ql (Bld)Anisocytosis [Presence] in Blood by Light microscopySt. Mary'S Medical Center Appearance of UrineOrdered By: Amina Fagan on 26-98-6173Snenkbnyeq (U)Urine appearanceCleBrecksville VA / Crille HospitalAspartate aminotransferase [Enzymatic activity/volume] in Serum or PlasmaOrdered By: Teresa Lynch on 69-18-4992UWS [Catalytic activity/Vol]Aspartate aminotransferase [Enzymatic activity/volume] in Serum or Viyxhe46-75LhaeyljzwSt. Mary'S Medical Center Basophils Auto (Bld) [#/Vol]Ordered By: Maurice Francis on 60-69-0749Hlppujtto (Bld) [#/Vol]Automated basophil count0.0-0.2FMarion Hospital Basophils/100 WBC Auto (Bld)Ordered By: Maurice Francis on 57-50-3090Aozuleeqi/100 WBC (Bld)Automated basophil %.St. Mary'S Medical CenterBilirubin Test strip Ql (U)Ordered By: Amina Fagan on 97-90-5620Hbklzaied Ql (U) Bilirubin.total [Presence] in Urine by Test stripNegativeSt. Mary'S Medical CenterBilirubin.total [Mass/volume] in Serum or PlasmaOrdered By: Teresa Lynch on 22-60-3757Izugxmbyl [Mass/Vol]Bilirubin.total [Mass/volume] in Serum or Plasma0.3-1.0St. [facility]'S Medical CenterBlood estimated average glucose determination by estimation from glycated hemoglobinOrdered By: Teresa Lynch on 36-63-7039Pcazdxe glucose Estimated from glycated hemoglobin (Bld) [Mass/Vol] Glucose mean value [Mass/volume] in Blood Estimated from glycated hemoglobin St. [facility]S Medical CenterCalcium [Mass/volume] in Serum or PlasmaOrdered By: Teresa Lynch on 72-11-4487Qsitvyi [Mass/Vol]Calcium [Mass/volume] in Serum or Plasma8.6-10.3FMarion HospitalCarbon dioxide, total [Moles/volume] in Serum or PlasmaOrdered By: Teresa Lynch on 26-49-0656FN1 [Moles/Vol]Carbon dioxide, total [Moles/volume] in Serum or Jotpkb63.0-31.0 [facility] Medical CenterChloride [Moles/volume] in Serum or Plasma Ordered By: Teresa Lynch on 96-80-1682Lpvsbiyi [Moles/Vol]Chloride [Moles/volume] in Serum or Wolotu12-757RcltihyxsSt. Mary'S Medical CenterCholesterol [Mass/volume] in Serum or PlasmaOrdered By: Teresa Lynch on 08-38-9045Svnvrvbivlk [Mass/Vol]Cholesterol [Mass/volume] in Serum or PqwbriLbt178-873SrizvlfamSt. Mary'S Medical CenterComment on above:Chol less than 200 mg/dl low riskChol 201-239 mg/dl borderline riskChol 240 mg/dl and greater high riskCholesterol in HDL [Mass/volume] in Serum or PlasmaOrdered By: Teresa Lynch on 10-26-2024 Cholesterol in HDL [Mass/Vol]Serum or plasma high density lipoprotein (HDL) cholesterol glwiaekagfxWty01-64PpbuuaojoSt. Mary'S Medical CenterComment on above:HDL CHOL ATP-III CLASSIFICATION Cardiovascular RiskHDL > or equal to 60 mg/dL LOWHDL < 40 mg/dL HIGHCholesterol in LDL Calc [Mass/Vol]Ordered By: Teresa Lynch on 11-68-8099Telzkwnoamk in LDL [Mass/Vol]Cholesterol in LDL [Mass/volume] in Serum or Plasma by calculation0-100St. Mary'S Medical CenterComment on above:LDL ATP III CLASSIFICATIONLDL less than 100 mg/dL OptimalLDL 100-129 mg/dL Near or above eogvmkyIXX989-574 mg/dL Borderline highLDL 160-189 mg/dL HighLDL greater than 189 mg/dL Very highCholesterol in LDL [Mass/volume] in Serum or PlasmaOrdered By: Teresa Lynch on 91-97-6513Whccvgrzvsg in LDL [Mass/Vol] Cholesterol in LDL [Mass/volume] in Serum or PlasmaSt. Mary'S Medical CenterComment on above:LDL ATP III CLASSIFICATIONLDL less than 100 mg/dL OptimalLDL 100-129 mg/dL Near or above izazullVDF070-637 mg/dL Borderline highLDL 160-189 mg/dL HighLDL greater than 189 mg/dL Very highCholesterol in VLDL Calc [Mass/Vol]Ordered By: Teresa Lynch on 68-42-1848Rthdyimszod in VLDL [Mass/Vol]Cholesterol in VLDL [Mass/volume] in Serum or Plasma by calculation St. [facility]'S Medical CenterComment on above:Test not performedColor Auto (U)Ordered By: Amina Fagan on 30-37-1117Wlqjh (U)Color of Urine by AutoYellow St. [facility]S Medical CenterComprehensive Metabolic Panelon 10-26-2024 Albumin [Mass/Vol]4.3 g/dLNormal3.5-5.7The [facility] Physician GroupComment on above:Performed By: #### CMP, RENAL ####[address] [address]EOIOlnufhd/Globulin [Mass ratio]1.7 {ratio}NormalThe Physicians Care Surgical HospitalComment on above:Performed By: #### CMP, RENAL ####[address] [place], [place] [address]RPIYII [Catalytic activity/Vol]132 U/EGvvk56-241Ccw Physicians Care Surgical HospitalComment on above:Performed By: #### CMP, RENAL ####[address] [address]MNZFMG [Catalytic activity/Vol]16 U/LNormal7-52The Physicians Care Surgical HospitalComment on above:Performed By: #### CMP, RENAL ####[address] [address]UKETccle gap [Moles/Vol]16.4 mmol/LHigh6.0-15.0The Physicians Care Surgical HospitalComment on above:Performed By: #### CMP, RENAL ####[address] [address]MIIMFD [Catalytic activity/Vol]13 U/GGhouae25-73Mua Phys[facility] Care Surgical HospitalComment on above:Performed By: #### CMP, RENAL ####[address] [facility] [place] [address]MPH Bilirubin [Mass/Vol]0.4 mg/dLNormal0.3-1.0The Physicians Care Surgical HospitalComment on above:Performed By: #### CMP, RENAL ####[address] [facility] [place] [address]IFQIxfihxp [Mass/Vol]9.4 mg/dLNormal8.6-10.3The Physicians Care Surgical HospitalComment on above:Performed By: #### CMP, RENAL ####[address] [facility] [place] [address]OLYVymbrmml [Moles/Vol]98 mmol/HJhmaub87-957Nxy Physicians Care Surgical HospitalComment on above: Performed By: #### CMP, RENAL ####[address], [place] [address]DXMQM1 [Moles/Vol]27.2 mmol/SWyodvl83.0-31.0The Physicians Care Surgical HospitalComment on above:Performed By: #### CMP, RENAL ####[address] [facility]iceat[facility] [place], [place] [address]ZIY Creatinine [Mass/Vol]2.36 mg/dLHigh0.70-1.30The Physicians Care Surgical HospitalComment on above:Performed By: #### CMP, RENAL ####[address], [place] [address]YASGdqrulolt GFR30.940 mL/MinNormSpalding Rehabilitation HospitalComment on above:Performed By: #### CMP, RENAL ####[address] [place]iceat[facility] health [place], [place] [address]VZKPnjoxrcl (S) [Mass/Vol]2.6 g/dLNoACMC Healthcare System GlenbeighComment on above:Performed By: #### CMP, RENAL ####[address] [facility]iceat[facility] health [place], [place] [address]GXOHwxfbpa [Mass/Vol]264 mg/dJIlik79-240Xli [facility] Comment on above:Result Comment: Random Glucose Reference Range is dependent on time and content of last meal. Glucose of more than 200 mg/dL in a nonstressed, ambulatory subject supports the diagnosis of Diabetes Mellitus. ADA recommended reference rangePerformed By: #### CMP, RENAL ####[facility] [place], [place] [address]KQQGpcfxefby [Moles/Vol]4.6 mmol/LNormal 3.5-5.1The [facility] Physician GroupComment on above:Performed By: #### CMP, RENAL ####[facility] [place], [place] [address]GEI Protein [Mass/Vol]6.9 g/dLNormal6.4-8.9The [facility] Physician GroupComment on above:Performed By: #### CMP, RENAL ####[address] [place], [place] [address]AWASfuvyk [Moles/Vol]137 mmol/BQymhmm986-985Yhf [facility] Physician GroupComment on above:Performed By: #### CMP, RENAL ####[facility] [place], [place] [address]MXIBvrk nitrogen [Mass/Vol]33 mg/dLHigh7-25The [facility] Physician [facility] HospitalComment on above:Performed By: #### CMP, RENAL ####[facility] [place], [place] [address]UPZGzdcixehfa [Mass/volume] in Serum or PlasmaOrdered By: Teresa Lynch on 32-23-3382Mvhntivtsb [Mass/Vol]Creatinine [Mass/volume] in Serum or PlasmaHigh0.70-1.30St. [facility]S Medical CenterCreatinine [Mass/volume] in UrineOrdered By: Amina Fagan on 64-49-1874Kuufvgpbik (U) [Mass/Vol]Creatinine [Mass/volume] in UrineSt. Mary'S Medical Center Comment on above:No reference range establishedEosinophils Auto (Bld) [#/Vol] Ordered By: Maurice Francis on 38-33-4347Rqcsujfujkr (Bld) [#/Vol]Automated eosinophil count0.0-0.45St. [facility]S Medical CenterEosinophils/100 WBC Auto (Bld)Ordered By: Maurice Francis on 62-23-1336Kivosskeqby/100 WBC (Bld) Automated eosinophil %.St. [facility]'S Medical CenterErythrocyte distribution width Auto (RBC) [Ratio]Ordered By: Maurice Francis on 70-59-6139Vfclenlsmoq distribution width (RBC) [Ratio]Erythrocyte distribution width [Ratio] by Automated lpnpdJzht06.0-14.8St. [facility]'S Medical CenterErythrocyte morphology finding [Identifier] in BloodOrdered By: Maurice Francis on 87-71-8754ROF morphology finding Nom (Bld)RBC morphologySt. Mary'S Medical Center Ferritinon 75-10-4398Wabcegcv [Mass/Vol]8.3 ng/mLLow23.9-336.2The [facility] Physician GroupComment on above:Performed By: #### LILA, [id number], URIC, PTH, FE and TIBC ####[facility] [address] [place] [address] USAFerritin [Mass/volume] in Serum or PlasmaOrdered By: Amina Fagan on 70-79-7635Zifvbcsc [Mass/Vol]Ferritin [Mass/volume] in Serum or PlasmaLow 23.9-336.2FMarion HospitalFolate [Mass/volume] in Serum or PlasmaOrdered By: Amina Fagan on 30-68-8570Ivjqba [Mass/Vol]Folate [Mass/volume] in Serum or Plasma>5.9St. [facility]S Medical CenterComment on above:Folate reference range: >5.9 ng/mlThe WHO technical consultation on folate and vitamin c75ytcyrtbtsnjx has determined that folate concentrations lessthan 4 ng/ml are considered deficient.Globulin Calc (S) [Mass/Vol]Ordered By: Teresa Lynch on 31-54-2760Orvzhmej (S) [Mass/Vol]Serum globulin measurement by calculation (mass/volume)St. [facility] Medical CenterGlucose [Mass/volume] in Serum or PlasmaOrdered By: Teresa Lynch on 10-22-4258Jcnibvp [Mass/Vol]Glucose [Mass/volume] in Serum or RagswhPlhm34-873Kjpxcotit [facility] Comment on above:ADA recommended reference rangeRandom Glucose Reference Range is dependent on time and content of last meal. Glucose of more than 200 mg/dL in a nonstressed, ambulatory subject supports the diagnosisof Diabetes Mellitus. Glucose [Mass/volume] in Urine by Test stripOrdered By: Amina Fagan on 02-26-7475Nhplyjk Test strip (U) [Mass/Vol]Glucose [Mass/volume] in Urine by Test stripHighNormalSt. Mary'S Medical CenterHematocrit Auto (Bld) [Volume fraction]Ordered By: Maurice Francis on 52-37-3759Kaayrheosc (Bld) [Volume fraction]Hematocrit [Volume Fraction] of Blood by Automated count38.8-50.0 [facility] Medical CenterHemoglobin A1c/Hemoglobin.total in BloodOrdered By: Teresa Lynch on 16-12-2029WwS0a (Bld) [Mass fraction]Hemoglobin A1c percentage High4.3-5.6FMarion HospitalComment on above:Increased risk for diabetes: 5.7 - 6.4diabetes: >6.4glycemic control for adults with diabetes: &l t;7.0Hemoglobin Test strip Ql (U)Ordered By: Amina Fagan on 10-26-2024 Hemoglobin Ql (U)Hemoglobin [Presence] in Urine by Test stripNegativeSt. Mary'S Medical CenterHemoglobin [Mass/volume] in BloodOrdered By: Maurice Francis on 97-10-2113Zmtmipohsv (Bld) [Mass/Vol]Hemoglobin [Mass/volume] in Blood 13.0-17.0St. [facility]S Medical CenterIron [Mass/volume] in Serum or Plasma Ordered By: Amina Fagan on 06-77-9523Prgp [Mass/Vol]Iron [Mass/volume] in Serum or BhzlmbEhk19-178EvajzmuykSt. Mary'S Medical CenterIron and TIBC Profileon 10-26-2024% Iron Saturation6.9 %Bal66-11Xdq [facility] Physician GroupComment on above:Performed By: #### LILA, [id number], URIC, PTH, FE and TIBC ####[facility] [address] [place] [address] USAIron [Mass/Vol]31 ug/kZIhx33-494Guu [facility] Physician GroupComment on above:Performed By: #### LILA, PMQG93PPD, URIC, PTH, FE and TIBC ####[address] [place] [id number] USATotal Iron Binding Wlfdatxo133 ug/dLNormal 255-450The [facility] Physician [facility] HospitalComment on above:Performed By: #### LILA, [id number], URIC, PTH, FE and TIBC ####[id number] USATransferrin [Mass/Vol]321 mg/hKPzwiuz147-763Obx [facility] Physician [facility] HospitalComment on above:Performed By: #### LILA, [id number], URIC, PTH, FE and TIBC ####[id number] USAKetones Test strip Ql (U)Ordered By: Amina Fagan on 53-14-1229Kpqddqy Ql (U)Ketones [Presence] in Urine by Test stripNegative St. [facility]S Medical CenterLDL Cholesterol Measuredon 53-06-1866WYU Cholesterol Jubrprcj38 mg/dLNormal0-100The [facility] Physician [facility] HospitalComment on above:Result Comment: LDL ATP III CLASSIFICATION LDL less than 100 mg/dL Optimal LDL 100-129 mg/dL Near or above optimal LDL 130-159 mg/dL Borderline high LDL 160-189 mg/dL High LDL greater than 189 mg/dL Very highPerformed By: #### LDLD, MG, URIC, TSH3, VCKS11DR, PSAS, LIPID ####[id number] USALeukocyte esterase [Presence] in Urine by Test stripOrdered By: Amina Fagan on 38-02-1277Wygmdlqkk esterase Test strip Ql (U) Leukocyte esterase [Presence] in Urine by Test stripNegativeSt. Mary'S Medical CenterLeukocytes [#/volume] corrected for nucleated erythrocytes in Blood by Automated counOrdered By: Maurice Francis on 19-41-0497JLR corrected for nucl RBC Auto (Bld) [#/Vol]Leukocytes [#/volume] corrected for nucleated erythrocytes in Blood by Automated coun4.1-10.5FMarion Hospital Lipid Panelon 98-18-8818Gzqjxysqjmi [Mass/Vol]108 mg/bCQma280-386Gpy [facility] Physician GroupComment on above:Result Comment: Chol less than 200 mg/dl low risk Chol 201-239 mg/dl borderline risk Chol 240 mg/dland greater high risk Performed By: #### LDLD, MG, URIC, TSH3, BUPF61VD, PSAS, LIPID ####[address] [place] [address] USACholesterol in HDL [Mass/Vol]21 mg/xZWbq45-87Cvx [facility] Physician GroupComment on above:Result Comment: HDL CHOL ATP-III CLASSIFICATION Cardiovascular Risk HDL > or equal to 60 mg/dL LOW HDL < 40 mg/dL HIGHPerformed By: #### LDLD, MG, URIC, TSH3, JYRN47SE, PSAS, LIPID ####[address] [place] [address] USACholesterol.total/Cholesterol in HDL [Mass ratio]5.1 {ratio}Normal<5.0The [facility] Physician GroupComment on above:Performed By: #### LDLD, MG, URIC, TSH3, GSGP22YI, PSAS, LIPID ####[address] [place] [address] USALDL Cholesterol,Calculated<10Normal 0-100The [facility] Physician GroupComment on above:Result Comment: LDL ATP III CLASSIFICATION LDL less than 100 mg/dL Optimal LDL 100-129 mg/dL Near or above optimal LDL 130-159 mg/dL Borderline high LDL 160-189 mg/dL High LDL greater than 189 mg/dL Very highPerformed By: #### LDLD, MG, URIC, TSH3, SFZY13GB, PSAS, LIPID ####[address] [address] [facility] Triglyceride w/Bxlkjk940 mg/dLHigh0-149The [facility] Physician GroupComment on above:Result Comment: TRIG [...] resulted.Performed By: #### LDLD, MG, URIC, TSH3, EWHK72LV, PSAS, LIPID ####[facility] [address] [place] [address] USAVLDL CHOLESTEROLNot performed NormalThe [facility] Physician GroupComment on above:Performed By: #### LDLD, MG, URIC, TSH3, EJPH57WK, PSAS, LIPID ####[facility] [address] [place] [address] USALymphocytes Auto (Bld) [#/Vol]Ordered By: Maurice Francis on 17-65-6573Ajgtdwgndcf (Bld) [#/Vol]Lymphocytes [#/volume] in Blood by Automated count1.00-4.8St. [facility]S Medical CenterLymphocytes/100 WBC Auto (Bld)Ordered By: Maurice Francis on 22-82-5196Lepscxppwfq/100 WBC (Bld) Lymphocytes/100 leukocytes in Blood by Automated count.[facility] Auto (RBC) [Entitic mass]Ordered By: Maurice Francis on 10-26-2024 MCH (RBC) [Entitic mass]MCH [Entitic mass] by Automated pypxyBzr08.5-35.[address] [facility] HospitalHC Auto (RBC) [Mass/Vol]Ordered By: Maurice Francis on 09-70-8859GEFM (RBC) [Mass/Vol]MCHC [Mass/volume] by Automated count 32.5-35.6FSt. Rita's HospitalV Auto (RBC) [Entitic vol]Ordered By: Maurice Francis on 46-15-9626FPK (RBC) [Entitic vol]MCV [Entitic volume] by Automated aebdaRxl14.5-101St. [facility] Medical CenterMagnesiumon 35-70-4267Mvalbkgrq [Mass/Vol]1.8 mg/dLLow1.9-2.7The [facility]ician Group Comment on above:Performed By: #### LDLD, MG, URIC, TSH3, XWPV06PC, PSAS, LIPID ####[facility] [place] [address] [facility] Magnesium [Mass/volume] in Serum or PlasmaOrdered By: Teresa Lynch on 10-26-2024 Magnesium [Mass/Vol]Magnesium [Mass/volume] in Serum or PlasmaLow1.9-2.7 [facility] Medical CenterMicroalbumin [Mass/volume] in UrineOrdered By: Teresa Lynch on 75-04-2854Ybbveey DL <= 20 mg/L (U) [Mass/Vol]Microalbumin [Mass/volume] in Urine0.0-1.8St. [facility] Medical CenterMicroalbumin, Urine (Random)on 58-91-0999Scotqhr DL <= 20 mg/L (U) [Mass/Vol]0.9 mg/dLNormal 0.0-1.8The [facility] Physician GroupComment on above:Result Comment: PERFORMED BY:[address] [place], [place] [phone] MEDICAL DIRECTORBREANNE RUTHERFORD M.D.Performed By: #### URMA ####[facility] [place] [address] [facility] Microcytes LM Ql (Bld)Ordered By: Maurice Francis on 94-05-8749Clagnznlla Ql (Bld) Microcytes [Presence] in Blood by Light microscopySt. Mary'S Medical CenterMonocytes Auto (Bld) [#/Vol]Ordered By: Maurice Reinar on 43-44-3863Swfkjgizb (Bld) [#/Vol]Automated blood monocyte count0.0-0.8St. [facility]S Medical CenterMonocytes/100 WBC Auto (Bld)Ordered By: Maurice Tito on 10-26-2024 Monocytes/100 WBC (Bld)Automated monocyte %.[facility] Neutrophils Auto (Bld) [#/Vol]Ordered By: Maurice Reinar on 27-89-1105Zjoitdepxit (Bld) [#/Vol]Neutrophils [#/volume] in Blood by Automated count1.8-7.7FMarion HospitalNeutrophils/100 WBC Auto (Bld)Ordered By: Maurice Francis on 60-33-0307Wfsdqgoenbe/100 WBC (Bld)Automated neutrophil %.[facility]S Medical CenterNitrite Test strip Ql (U)Ordered By: Amina Fagan on 10-26-2024 Nitrite Ql (U)Nitrite [Presence] in Urine by Test stripNegativeSt. Mary'S Medical CenterNo Panel InformationOrdered By: Teresa Lynch on 10-26-2024 Estimated GFR (CKD-EPI)30.940 mL/MinSt. Mary'S Medical CenterPharmacy Creatinine Clearance (ChemN/[facility]30.940 mL/Min [facility]S Medical CenterN/[facility] CenterNucleated erythrocytes [Presence] in Blood by Automated countOrdered By: Maurice Francis on 80-14-6451Rheymuhws RBC Auto Ql (Bld)Nucleated erythrocytes [Presence] in Blood by Automated count0-0.5FMarion HospitalPSA Screen (Yearly Only) on 74-74-5382IYI Screen (Yearly Only)1.160 ng/mLNormal0.000-4.000The [facility] Physician GroupComment on above:Result Comment: Serial tumor marker results determined by assays using different manufacturers or methods may not be comparable. [facility] tick inspector and method: Pixsta DXI, CHEMILUMINESCENT IMMUNOASSAY.PERFORMED BY:[address] [place], [place] [phone] MEDICAL DIRECTORBREANNE RUTHERFORD M.D.Performed By: #### LDLD, MG, URIC, TSH3, [id number], PSAS, LIPID ####[address] [address] [facility] Parathyrin.intact [Mass/volume] in Serum or PlasmaOrdered By: Amina Fagan on 07-12-0650Avxjsjxebx.intact [Mass/Vol]Parathyrin.intact [Mass/volume] in Serum or Axegwd29-95LvocpzcohSt. Mary'S Medical CenterParathyroid Hormone Intacton 30-05-7137Plzymqoskqm Hormone Tityll48.9 pg/kHBvrdrq86-99Poy [facility] Physician GroupComment on above:Result Comment: PERFORMED BY:[address] [place], [place] [phone] MEDICAL DIRECTORBREANNE RUTHERFORD M.D.Performed By: #### LILA, FPMK61GOL, URIC, PTH, FE and TIBC ####[facility] [id number] [place] [address] USAPhosphate [Mass/volume] in Serum or PlasmaOrdered By: Teresa Lynch on 99-17-0772Nhjxbfqty [Mass/Vol]Phosphate [Mass/volume] in Serum or Plasma2.5-4.5 [facility] Medical CenterPlatelet adequacy [Presence] in Blood by Light microscopyOrdered By: Maurice Tito on 92-92-2985Xeompatlt LM Ql (Bld)Platelet adequacy [Presence] in Blood by Light microscopyNormKing's Daughters Medical Center OhioPlatelet mean volume Auto (Bld) [Entitic vol]Ordered By: Maurice Tito on 79-17-7957Mcuumyrr mean volume (Bld) [Entitic vol]Platelet mean volume [Entitic volume] in Blood by Automated count6.6-10.1FMarion Hospital Platelet morphology finding [Identifier] in BloodOrdered By: Maurice Tito on 50-47-3710Heooenoe morphology finding Nom (Bld)Platelet morphology finding [Identifier] in BloodSt. Mary'S Medical CenterPlatelets Auto (Bld) [#/Vol]Ordered By: Maurice Tito on 19-80-0220Ptreiptdr (Bld) [#/Vol]Platelets [#/volume] in Blood by Automated kzwgo164-083ZlsdudyrrSt. Mary'S Medical Center Platelets Large [Presence] in Blood by Light microscopyOrdered By: Maurice Tito on 51-02-3274Dkmeempvi Large LM Ql (Bld)Platelets Large [Presence] in Blood by Light microscopySt. Mary'S Medical CenterPolychromasia [Presence] in Blood by Light microscopyOrdered By: Maurice Tito on 90-68-5706Pyhxppgodsbth LM Ql (Bld)Polychromasia [Presence] in Blood by Light microscopySt. Mary'S Medical CenterPotassium [Moles/volume] in Serum or PlasmaOrdered By: Teresa Lynch on 35-21-6079Jvjhtyobf [Moles/Vol]Potassium [Moles/volume] in Serum or Plasma 3.5-5.1FMarion HospitalProstate specific Ag [Mass/volume] in Serum or PlasmaOrdered By: Teresa Lynch on 47-26-3384Ksxmxhme specific Ag [Mass/Vol]Prostate specific Ag [Mass/volume] in Serum or Plasma0.000-4.000 [facility] Medical CenterComment on above:Serial tumor marker results determined by assays using different manufacturers or methods may not be comparable.[facility] tick inspector and method:PlayWithEL DXI, CHEMILUMINESCENT IMMUNOASSAY.Protein Creat Ratio Ur Randomon 10-26-2024 Creatinine, Urine (Random)62.00 mg/dLNormalThe [facility] Physician [facility] HospitalComment on above:Result Comment: No reference range establishedPerformed By: #### NORA COON ####[address] [address] USAProtein (U) [Mass/Vol]12 mg/dLHigh0-9[facility] Comment on above:Performed By: #### NORA COON ####[address] [address] USAUrine Protein/Creatinine Rgohk287 mg/g{Cre}Normal0-200[facility] HospitalComment on above:Result Comment: PERFORMED BY:[address] [place], [place] [phone] MEDICAL MARY RUTHERFORD M.D.Performed By: #### NORA COON ####[address] [address] USAProtein Test strip (U) [Mass/Vol]Ordered By: Amina Fagan on 19-75-9354Zxwuvqt (U) [Mass/Vol]Protein [Mass/volume] in Urine by Test stripNegativeSt. Mary'S Medical CenterProtein [Mass/volume] in Serum or PlasmaOrdered By: Teresa Lynch on 88-95-2512Ttxkztt [Mass/Vol]Protein [Mass/volume] in Serum or Plasma6.4-8.9[facility] Medical CenterProtein [Mass/volume] in UrineOrdered By: Amina Fagan on 10-76-1730Vwehxhk (U) [Mass/Vol]Protein [Mass/volume] in UrineHigh0-9[facility] RBC Auto (Bld) [#/Vol]Ordered By: Maurice Francis on 78-68-9797FCH (Bld) [#/Vol] Erythrocytes [#/volume] in Blood by Automated count3.90-5.60[facility] Medical CenterRenal Function Panelon 84-45-8462Btnaesoel [Mass/Vol]3.9 mg/dL Normal2.5-4.5[facility] Physician GroupComment on above:Result Comment: PERFORMED BY:[address] [place], [place] [phone] MEDICAL DIRECTORBREANNE RUTHERFORD M.D.Performed By: #### CMP, RENAL ####[address] [address]YUYOjql and CBCon 11-97-7594Iuwsacierzct Ql (Bld)MarkedNormalThe [facility] Physician [facility] HospitalComment on above:Performed By: #### SCAN CBC ####[address] [address] USABasophils (Bld) [#/Vol]0.1 10*3/uLNormal0.0-0.2[facility] HospitalComment on above: Performed By: #### SCAN CBC ####[address] [address] USABasophils/100 WBC (Bld)1.1 %Normal.The [facility] Physician GroupComment on above:Performed By: #### SCAN CBC ####[address] [address] USAEosinophils (Bld) [#/Vol]0.3 10*3/uLNormal0.0-0.45[facility] HospitalComment on above: Performed By: #### SCAN CBC ####[address] [address] USAEosinophils/100 WBC (Bld)3.5 %Normal.The [facility] Physician GroupComment on above:Performed By: #### SCAN CBC ####[address] [address] USAErythrocyte distribution width (RBC) [Ratio]21.5 %High12.0-14.8[facility] Comment on above:Performed By: #### SCAN CBC ####[address] [address] USAHematocrit (Bld) [Volume fraction]42.7 %Pzconq81.8-50.0[facility] Physician GroupComment on above:Performed By: #### SCAN CBC ####[address] [address] USAHemoglobin (Bld) [Mass/Vol]14.3 g/dOSrpchf69.0-17.0[facility] Physician GroupComment on above:Performed By: #### SCAN CBC ####[address] [address] USALarge PlateletsSlightNormalThe [facility] Physician GroupComment on above:Result Comment: PERFORMED BY:[address] [place], [place] [phone] MEDICAL DIRECTORBREANNE RUTHERFORD M.D.Performed By: #### SCAN CBC ####[address] [address] USALymphocytes (Bld) [#/Vol]1.6 10*3/uLNormal1.00-4.8The [facility] Physician GroupComment on above: Performed By: #### SCAN CBC ####[address] [address] USALymphocytes/100 WBC (Bld)17.7 %Normal.The [facility] Physician GroupComment on above:Performed By: #### SCAN CBC ####[address] [address] USAMCH (RBC) [Entitic mass]25.9 pgLow27.5-35.2The [facility] Physician GroupComment on above:Performed By: #### SCAN CBC ####[place] [phone] USAMCV (RBC) [Entitic vol]77.1 fLLow83.5-101The [facility] Physician GroupComment on above:Performed By: #### SCAN CBC ####[place] [address] USAMean Corpuscular HGB Conc33.6 g/dL Pbbpuy93.5-35.6The [facility] Physician GroupComment on above:Performed By: #### SCAN CBC ####[place] [address] USAMicrocytosisSlightNormalThe [facility] Physician GroupComment on above: Performed By: #### SCAN CBC ####[place] [address] USAMonocytes (Bld) [#/Vol]0.8 10*3/uLNormal0.0-0.8[facility] Physician GroupComment on above:Performed By: #### SCAN CBC ####[place] [address] [place] Monocytes/100 WBC (Bld)9.2 %Normal.The [facility] Physician GroupComment on above:Performed By: #### SCAN CBC ####[place] [address] USANeutrophils (Bld) [#/Vol]6.0 10*3/uLNormal1.8-7.7The [facility] Physician GroupComment on above:Performed By: #### SCAN CBC ####[place] [address] [place] Neutrophils/100 WBC (Bld)68.5 %Normal.The [facility] Physician GroupComment on above:Performed By: #### SCAN CBC ####[place] [address] USANRBC%0.1 /100{WBC}Normal0-0.5The [facility] Physician GroupComment on above:Performed By: #### SCAN CBC ####[place] [address] USAPlatelet EstimateNormalNormal NormalThe [facility] Physician GroupComment on above:Performed By: #### SCAN CBC ####[place] [address] [place] Platelet mean volume (Bld) [Entitic vol]9.5 fLNormal6.6-10.1The [facility]ician GroupComment on above:Performed By: #### SCAN CBC ####[place] [phone] USAPlatelets (Bld) [#/Vol]167 10*3/rCHovzmy061-783Xna [facility] Physician GroupComment on above: Performed By: #### SCAN CBC ####[place] [address] USAPolychromasiaSlightNormalThe [facility] Physician GroupComment on above:Performed By: #### SCAN CBC ####[place] [address] USARBC (Bld) [#/Vol]5.54 10*6/uLNormal 3.90-5.60The [facility]ician GroupComment on above:Performed By: #### SCAN CBC ####[place] [phone] USAWBC (Bld) [#/Vol]8.8 10*3/uLNormal4.1-10.5[facility]ician GroupComment on above:Performed By: #### SCAN CBC ####[place] [address] USASerum or plasma albumin/globulin mass ratioOrdered By: Teresa Lynch on 19-55-3199Mswgyvu/Globulin [Mass ratio]Serum or plasma albumin/globulin mass ratioCoshocton Regional Medical Centererum or plasma anion gap determinationOrdered By: Teresa Lynch on 19-24-0017Gxzwe gap [Moles/Vol] Serum or plasma anion gap determinationHigh6.0-15.0Coshoct[facility] Regional Medical Centererum or plasma iron binding capacity measurement (mass/volume)Ordered By: Amina Fagan on 48-74-7649Yvhi binding capacity [Mass/Vol]Iron binding capacity [Mass/volume] in Serum or Cgomlw493-717JwkwgvqesCoshocton Regional Medical Centererum or plasma iron saturation measurement (mass fraction)Ordered By: Amina Fagan on 48-68-6514Mmgp saturation [Mass fraction]Iron saturation [Mass Fraction] in Serum or OyfwefFod70-64OyflkeegqCoshocton Regional Medical Centererum or plasma total cholesterol/high density lipoprotein (HDL) cholesterol mass ratOrdered By: Teresa Lynch on 69-11-9466Ktehcpttewk.total/Cholesterol in HDL [Mass ratio]Serum or plasma total cholesterol/high density lipoprotein (HDL) cholesterol mass rat<5.0 [facility] Medical Centerodium [Moles/volume] in Serum or PlasmaOrdered By: Teresa Lynch on 99-16-0276Otqctj [Moles/Vol]Sodium [Moles/volume] in Serum or Jftjsf154-633ZpemxksjeCoshocton Regional Medical Centerpecific gravity Test strip (U) [Rel density]Ordered By: Amina Fagan on 46-82-2298Kyjsvkxh gravity (U) [Rel density]Specific gravity of Urine by Test strip1.001-1.030[facility] Medical CenterThyroid Stimulating Hormoneon 39-45-6703AWZ Qn3.68 m[IU]/LNormal 0.45-5.33The [facility] Physician GroupComment on above:Performed By: #### LDLD, MG, URIC, TSH3, YLIA20CN, PSAS, LIPID ####[facility] [address] [place] [address] USAThyrotropin [Units/volume] in Serum or Plasma Ordered By: Teresa Lynch on 04-02-9094DZC QnThyrotropin [Units/volume] in Serum or Plasma0.45-5.33[facility] Medical CenterTransferrin [Mass/volume] in Serum or PlasmaOrdered By: Amina Fagan on 98-55-6776Zcdmscqurhk [Mass/Vol] Transferrin [Mass/volume] in Serum or Bjpncy323-905SpoourlmgSt. Mary'S Medical CenterTriglyceride [Mass/volume] in Serum or PlasmaOrdered By: Teresa Lynch on 84-33-5516Gzzctvxypncr [Mass/Vol]Triglyceride [Mass/volume] in Serum or Plasma High0-149[facility] CenterComment on above:If the triglyceride result is greater than 400, LDLC and related calculations cannot be calculated a nd resulted.TRIG ATP III CLASSIFICATIONTRIG less than 150 mg/dL NormalTRIG 150- 199 mg/dL BorderlinehighTRIG 200-500 mg/dL High TRIG greater than 500 mg/dL Very highStandard traceable to the Center for Disease Conrtrol and Prevention (CDC) test method.Urate [Mass/volume] in Serum or PlasmaOrdered By: Amina Fagan on 34-59-7459Pqiqi [Mass/Vol]Urate [Mass/volume] in Serum or PlasmaHigh4.4-7.6 [facility] Medical CenterUrea nitrogen [Mass/volume] in Serum or Plasma Ordered By: Teresa Lynch on 20-43-9720Mrwq nitrogen [Mass/Vol]Urea nitrogen [Mass/volume] in Serum or PlasmaHigh7-25[facility]. [facility] Medical CenterUric Acidon 42-68-9787Prtzy [Mass/Vol]10.5 mg/dLHigh4.4-7.6[facility] Physician GroupComment on above:Performed By: #### LILA, [id number], URIC, PTH, FE and TIBC ####[address] [address] USAUrate [Mass/Vol]10.5 mg/dLHigh4.4-7.6The [facility] Physician GroupComment on above: Performed By: #### LDLD, MG, URIC, TSH3, KFST94WY, PSAS, LIPID ####[address] [address] USAUrinalysison 37-84-5640Uqtvjurtzj (U)ClearNormalClearThe [facility] Physician GroupComment on above:Order Comment: Name Collection Type:: Clean-Voided MidstreamPerformed By: #### PROCRERAT, UA ####[place] [phone] USABilirubin,UrineNegativeNormalNegativeThe [facility] Comment on above:Order Comment: Name Collection Type:: Clean-Voided Midstream Performed By: #### PROCRERAT, UA ####[address] [address] USAColor (U)Light-YellowNormalYellowThe [facility] Physician GroupComment on above:Order Comment: Name Collection Type:: Clean- Voided MidstreamPerformed By: #### PROCRERAT, UA ####[address] [address] USAGlucose Ql (U)>=HighNoPsychiatric hospital Physician GroupComment on above:Order Comment: Name Collection Type:: Clean-Voided MidstreamPerformed By: #### PROCRERAT, UA ####[address] [address] USAKetones Ql (U)NegativeNormal NegativeThe [facility] Physician GroupComment on above:Order Comment: Name Collection Type:: Clean-Voided MidstreamPerformed By: #### PROCRERAT, UA ####[address] [address] [place] Leukocyte esterase Test strip Ql (U)NegativeNormalNegativeThe [facility] Physician GroupComment on above:Order Comment: Name Collection Type:: Clean- Voided MidstreamPerformed By: #### PROCRERAT, UA ####[address] [address] USANitrite,UrineNegativeNormalNegativeThe [facility] Physician GroupComment on above:Order Comment: Name Collection Type:: Clean-Voided MidstreamPerformed By: #### PROCRERAT, UA ####[address] [address] USAOccult Blood,UrineNegative NormalNegativeThe [facility] Physician GroupComment on above:Order Comment: Name Collection Type:: Clean-Voided MidstreamResult Comment: PERFORMED BY:[place] [address] [address] [place], [place] [phone] MEDICAL MARY RUTHERFORD M.D.Performed By: #### PROCRERAT, UA ####[address] [address] USApH (U) 5.5 [pH]Normal5.0-9.0The [facility] Physician GroupComment on above:Order Comment: Name Collection Type:: Clean-Voided MidstreamPerformed By: #### PROCRERAT, UA ####[address] [address] USAProtein,UrineNegativeNormalNegativeThe [facility] Physician GroupComment on above:Order Comment: Name Collection Type:: Clean-Voided MidstreamPerformed By: #### PROCRERAT, UA ####[address] [address] USASpecificy Mobile,Urine1.888Pugkyz9.001-1.030The [facility] Physician GroupComment on above:Order Comment: Name Collection Type:: Clean-Voided MidstreamPerformed By: #### PROCRERAT, UA ####[address] [address] USAUrobilinogen,UrineNormalNormal NormalThe [facility] Physician GroupComment on above:Order Comment: Name Collection Type:: Clean-Voided MidstreamPerformed By: #### PROCRERAT, UA ####[address] [address] USAUrine protein/creatinine ratioOrdered By: Amina Fagan on 06-73-4429Vwgxcyu/Creatinine (U) [Ratio]Urine protein/creatinine ratio0-200[facility] Urobilinogen Test strip (U) [Mass/Vol]Ordered By: Amina Fagan on 10-26-2024 Urobilinogen (U) [Mass/Vol]Urobilinogen [Mass/volume] in Urine by Test strip [facility] Medical CenterVit. B12/Folate Profileon 10-26-2024 Cobalamin (Vitamin B12) [Mass/Vol]195 pg/gRPyxegw026-715Ltl [facility] Physician GroupComment on above:Performed By: #### LILA, [id number], URIC, PTH, FE and TIBC ####[address] [address] USAFolate 10.1 ng/mLNormal>5.9The [facility] Physician GroupComment on above:Result Comment: Folate reference range: >5.9 ng/ml The WHO technical consultation on folate and vitamin b12 deficiencies has determined that folate concentrations less than 4 ng/ml are considered deficient.PERFORMED BY:[place] [address] [address] [place], [place] [phone] MEDICAL DIRECTORBREANNE RUTHERFORD M.D.Performed By: #### LILA, [id number], URIC, PTH, FE and TIBC ####[address] [address] [facility] HOSPITALVitamin B12 ser/plasOrdered By: Amina Fagan on 78-29-0784Bzwdotugv (Vitamin B12) [Mass/Vol]Vitamin B12 ser/gouk981-917EuebcmnbjSt. Mary'S Medical Center Vitamin D 25 Hydroxy Totalon 47-00-3936Wbmwzze D 25 Hydroxy Total17.0 ng/mLLow 30-100The [facility] Physician GroupComment on above:Result Comment: VITAMIN D STATUS 25(OH)VITAMIN D RANGE (ng/mL) Deficient <20 Insufficient 20 to <30 Sufficient 30 to 100 Reference: Ibrahima Reyes, Kasey LONG, et al. Evaluation,treatment, and prevention of vitamin D deficiency; an Endocrine Society clinical practice guideline.JCEM. 2010; 96(7):1911-30.PERFORMED BY:[place] [address] [address] [place], [place] [phone] MEDICAL MARY RUTHERFORD M.D.Performed By: #### LDLD, MG, URIC, TSH3, KYQY02PR, PSAS, LIPID ####[address] [address] [facility] HOSPITALVitamin D+Metabolites [Mass/volume] in Serum or PlasmaOrdered By: Teresa Lynch on 15-90-5684Ijyfrld D+Metabolites [Mass/Vol]Vitamin D+Metabolites [Mass/volume] in Serum or RiivvcNhb68-341 [facility] CenterComment on above:VITAMIN D STATUS 25(OH)VITAMIN D RANGE (ng/mL) Deficient <20 Insufficient 20 to <25Srhrphmqax50 to 100Reference: Ibrahima Reyes, Kasey LONG, et al. Evaluation,treatment, and prevention of vitamin D deficiency; an Endocrine Society clinical practice guideline. JCEM. 2010; 96(7):1911-30.WBC Auto (Bld) [#/Vol]Ordered By: Maurice Francis on 05-77-6665GGX (Bld) [#/Vol]Leukocytes [#/volume] in Blood by Automated count4.1-10.5FMarion Hospital pH Test strip (U)Ordered By: Amina Fagan on 11-02-3448yC (U)pH of Urine by Test strip5.0-9.0[facility] Medical CenterAnisocytosis LM Ql (Bld)Ordered By: Abdullahi Canchola on 79-25-3729Rsjtwbsmthkl Ql (Bld)Anisocytosis [Presence] in Blood by Light microscopySt. Mary'S Medical CenterBasic Metabolic Panel on 92-89-4553Tdgzz gap [Moles/Vol]15.7 mmol/LHigh6.0-15.0The [facility] Physician GroupComment on above:Performed By: #### BMP, CK, HS TROP, FE and TIBC, LILA, MG, SCAN CBC ####[place] [phone] USACalcium [Mass/Vol]8.9 mg/dLNormal8.6-10.3[facility] Comment on above:Performed By: #### BMP, CK, HS TROP, FE and TIBC, LILA, MG, SCAN CBC ####[address] [address] [place] Chloride [Moles/Vol]99 mmol/VMvadlh71-642Tpq [facility] Physician GroupComment on above:Performed By: #### BMP, CK, HS TROP, FE and TIBC, LILA, MG, SCAN CBC ####[address] [address] USACO2 [Moles/Vol]25.5 mmol/QSuojvh34.0-31.0The [facility] Physician GroupComment on above:Performed By: #### BMP, CK, HS TROP, FE and TIBC, LILA, MG, SCAN CBC ####[place] [phone] [place] Creatinine [Mass/Vol]2.43 mg/dLHigh0.70-1.30The [facility] Physician GroupComment on above:Performed By: #### BMP, CK, HS TROP, FE and TIBC, LILA, MG, SCAN CBC ####[place] [address] [address] Creatinine Clr Calc Cbzlmjul38.93NoPsychiatric hospital Physician GroupComment on above:Performed By: #### BMP, CK, HS TROP, FE and TIBC, LILA, MG, SCAN CBC ####[place] [address] [address] Estimated GFR29.874 mL/MinNoPsychiatric hospital Physician GroupComment on above: Performed By: #### BMP, CK, HS TROP, FE and TIBC, LILA, MG, SCAN CBC ####[place] [address] USAGlucose [Mass/Vol]221 mg/lOMxoy25-711Hty [facility] Physician GroupComment on above: Result Comment: Random Glucose Reference Range is dependent on time and content of last meal. Glucose of more than 200 mg/dL in a nonstressed, ambulatory subject supports the diagnosis of Diabetes Mellitus. ADA recommended reference rangePerformed By: #### BMP, CK, HS TROP, FE and TIBC, LILA, MG, SCAN CBC ####[address] Potassium [Moles/Vol]4.2 mmol/LNormal3.5-5.1The [facility] Physician GroupComment on above:Performed By: #### BMP, CK, HS TROP, FE and TIBC, LILA, MG, SCAN CBC ####[place] [address] USASodium [Moles/Vol]136 mmol/PUtkdgh013-238Yhh [facility] Physician GroupComment on above: Performed By: #### BMP, CK, HS TROP, FE and TIBC, LILA, MG, SCAN CBC ####[place] [address] USAUrea nitrogen [Mass/Vol]39 mg/dLHigh7-25The [facility] Physician GroupComment on above:Performed By: #### BMP, CK, HS TROP, FE and TIBC, LILA, MG, SCAN CBC ####[facility] [address] [place] [id number] [facility] Basophils Auto (Bld) [#/Vol]Ordered By: Abdullahi Canchola on 44-14-2577Xgfaufnkd (Bld) [#/Vol]Automated basophil count0.0-0.2FMarion Hospital Basophils/100 WBC Auto (Bld)Ordered By: Abdullahi Canchola on 10-11-2024 Basophils/100 WBC (Bld)Automated basophil %.[facility] Calcium [Mass/volume] in Serum or PlasmaOrdered By: Abdullahi Canchola on 10-11-2024 Calcium [Mass/Vol]Calcium [Mass/volume] in Serum or Plasma8.6-10.3FMarion HospitalCarbon dioxide, total [Moles/volume] in Serum or Plasma Ordered By: Abdullahi Canchola on 37-85-3317II0 [Moles/Vol]Carbon dioxide, total [Moles/volume] in Serum or Zxzvng74.0-31.0[facility] Chloride [Moles/volume] in Serum or PlasmaOrdered By: Abdullahi Canchola on 11-59-6962Zzebyuic [Moles/Vol]Chloride [Moles/volume] in Serum or Vucgdc20-285 [facility] CenterCreatine Kinaseon 83-74-9477JB [Catalytic activity/Vol]91 U/FXsplyv01-147Rmt [facility] Physician GroupComment on above: Performed By: #### BMP, CK, HS TROP, FE and TIBC, LILA, MG, SCAN CBC ####[facility] [address] [place] [address] [facility] Creatine kinase [Enzymatic activity/volume] in Serum or PlasmaOrdered By: Abdullahi Canchola on 11-05-9534AZ [Catalytic activity/Vol]Creatine kinase [Enzymatic activity/volume] in Serum or Absjqr28-958HejmyxaivSt. Mary'S Medical CenterCreatinine [Mass/volume] in Serum or PlasmaOrdered By: Abdullahi Canchola on 09-37-5279Jldicfqfxb [Mass/Vol]Creatinine [Mass/volume] in Serum or PlasmaHigh 0.70-1.30[facility] Medical CenterECH echo transthoracicon 84-61-3574KVL echo transthoracicNormalThe [facility] Physician GroupEosinophils Auto (Bld) [#/Vol]Ordered By: Abdullahi Canchola on 56-78-8278Wktjweyjang (Bld) [#/Vol] Automated eosinophil count0.0-0.45[facility] Eosinophils/100 WBC Auto (Bld)Ordered By: Abdullahi Canchola on 10-11-2024 Eosinophils/100 WBC (Bld)Automated eosinophil %.[facility]S Medical CenterErythrocyte distribution width Auto (RBC) [Ratio]Ordered By: Abdullahi Canchola on 55-45-6655Gxyrtuuemfm distribution width (RBC) [Ratio]Erythrocyte distribution width [Ratio] by Automated njgcnIkfi71.0-14.8St. [facility]S Medical CenterErythrocyte morphology finding [Identifier] in BloodOrdered By: Abdullahi Canchola on 31-07-3633UIK morphology finding Nom (Bld)RBC morphology [facility] Medical CenterFerritinon 01-13-3488Nxhgbwnc [Mass/Vol]8.2 ng/mLLow23.9-336.2The [facility] Physician GroupComment on above:Result Comment: PERFORMED BY:[address] [place], [place] [phone] MEDICAL DIRECTORMIKE CABAN M.D. Performed By: #### BMP, CK, HS TROP, FE and TIBC, LILA, MG, SCAN CBC ####[facility] [address] [place] [address] [facility] Ferritin [Mass/volume] in Serum or PlasmaOrdered By: Abdullahi Canchola on 31-84-3548Fsapnhyc [Mass/Vol]Ferritin [Mass/volume] in Serum or PlasmaLow 23.9-336.2FMarion HospitalGlucose Glucometer (BldC) [Mass/Vol] Ordered By: Abdullahi Canchola on 36-07-4985Fcfrjgt [Mass/Vol]Capillary blood glucose measurement by glucometer (mass/volume)[facility] Comment on above:Random Glucose Reference Range is dependent on time and content of last meal. Glucose of more than 200 mg/dL in a nonstressed, ambulatory subject supports the diagnosis of Diabetes Mellitus.Glucose Poct Glucometerson 32-82-0214Ihdptxu1Mlp7: Cleaned MeterPalm Beach Gardens Medical Center Physician GroupComment on above:Result Comment: PERFORMED BY:[place] [address] [address] [place], [place] [phone] MEDICAL DIRECTORMIKE CABAN M.D.Performed By: #### GLULS ####Point of Care testing,Glucose [Mass/Vol]194 mg/dLPalm Beach Gardens Medical Center Physician GroupComment on above:Result Comment: Random Glucose Reference Range is dependent on time and content of last meal. Glucose of more than 200 mg/dL in a nonstressed, ambulatory subject supports the diagnosis of Diabetes Mellitus.Performed By: #### GLULS ####Point of Care testing,Zvqnogr2Hbd1: Neelima MeterPalm Beach Gardens Medical Center Physician Comment on above:Result Comment: PERFORMED BY:[place] [address] [address] [place], [place] [phone] MEDICAL DIRECTORMIKE CABAN M.D.Performed By: #### GLULS ####Point of Care testing,Glucose [Mass/Vol]229 mg/dLPalm Beach Gardens Medical Center Physician GroupComment on above:Result Comment: Random Glucose Reference Range is dependent on time and content of last meal. Glucose of more than 200 mg/dL in a nonstressed, ambulatory subject supports the diagnosis of Diabetes Mellitus.Performed By: #### GLULS ####Point of Care testing,Glucose [Mass/volume] in Serum or Plasma Ordered By: Abdullahi Canchola on 67-92-9389Nmdmyjn [Mass/Vol]Glucose [Mass/volume] in Serum or ClnyjvHmna53-279IibmzhmrmSt. Mary'S Medical CenterComment on above: ADA recommended reference rangeRandom Glucose Reference Range is dependent on time and content of last meal. Glucose of more than 200 mg/dL in a nonstressed, ambulatory subject supports the diagnosisof Diabetes Mellitus.Hematocrit Auto (Bld) [Volume fraction]Ordered By: Abdullahi Canchola on 62-31-2968Hugwvlyixl (Bld) [Volume fraction]Hematocrit [Volume Fraction] of Blood by Automated count 38.8-50.0St. [facility]'S Medical CenterHemoglobin [Mass/volume] in Blood Ordered By: Abdullahi Canchola on 27-74-0292Dsebpavibt (Bld) [Mass/Vol]Hemoglobin [Mass/volume] in Blood13.0-17.0[facility] Medical CenterIron [Mass/volume] in Serum or PlasmaOrdered By: Abdullahi Canchola on 78-89-2222Jfmt [Mass/Vol]Iron [Mass/volume] in Serum or NmctyhHgu21-476NbtrwifflSt. Mary'S Medical CenterIron and TIBC Profileon 10-11-2024% Iron Saturation9.1 %Sqk60-51 The [facility] Physician GroupComment on above:Performed By: #### BMP, CK, HS TROP, FE and TIBC, LILA, MG, SCAN CBC ####[place] [place] [address] USAIron [Mass/Vol]37 ug/jIZdt31-478Dcm [facility] Physician GroupComment on above:Performed By: #### BMP, CK, HS TROP, FE and TIBC, LILA, MG, SCAN CBC ####[place] [address] USATotal Iron Binding Fmadgpyl153 ug/nWHiceca329-600Qzc Physicians Care Surgical HospitalComment on above:Performed By: #### BMP, CK, HS TROP, FE and TIBC, LILA, MG, SCAN CBC ####[place] [address] USATransferrin [Mass/Vol]291 mg/fOFpdikf892-389Ket [facility] Physician GroupComment on above:Performed By: #### BMP, CK, HS TROP, FE and TIBC, LILA, MG, SCAN CBC ####[place] [address] USALeukocytes [#/volume] corrected for nucleated erythrocytes in Blood by Automated counOrdered By: Abdullahi Canchola on 10-11-2024 WBC corrected for nucl RBC Auto (Bld) [#/Vol]Leukocytes [#/volume] corrected for nucleated erythrocytes in Blood by Automated coun4.1-10.5FMarion HospitalLymphocytes Auto (Bld) [#/Vol]Ordered By: Abdullahi Canchola on 75-70-4191Wpmhscocvyr (Bld) [#/Vol]Lymphocytes [#/volume] in Blood by Automated count1.00-4.8[facility] Medical CenterLymphocytes/100 WBC Auto (Bld) Ordered By: Abdullahi Canchola on 82-15-3796Rcodopkdlfi/100 WBC (Bld)Lymphocytes/100 leukocytes in Blood by Automated count.[facility]S Medical CenterMCH Auto (RBC) [Entitic mass]Ordered By: Abdullahi Canchola on 51-60-3920JAT (RBC) [Entitic mass]MCH [Entitic mass] by Automated nbplyTtw66.5-35.2FMarion HospitalMCHC Auto (RBC) [Mass/Vol]Ordered By: Abdullahi Canchola on 03-22-3150IQUE (RBC) [Mass/Vol]MCHC [Mass/volume] by Automated count32.5-35.6 [facility] Medical CenterMCV Auto (RBC) [Entitic vol]Ordered By: Abdullahi Canchola on 46-88-6075EIC (RBC) [Entitic vol]MCV [Entitic volume] by Automated xtfolPkb48.5-101St. [facility] Medical CenterMagnesiumon 38-91-3230Xxcznimje [Mass/Vol]1.8 mg/dLLow1.9-2.7The [facility] Hospital Physician GroupComment on above: Performed By: #### BMP, CK, HS TROP, FE and TIBC, LILA, MG, SCAN CBC ####[facility] [address] [place] [id number] [facility] Magnesium [Mass/volume] in Serum or PlasmaOrdered By: Abdullahi Canchola on 42-79-8066Vtazihwoq [Mass/Vol]Magnesium [Mass/volume] in Serum or PlasmaLow 1.9-2.7FMarion HospitalMicrocytes LM Ql (Bld)Ordered By: Abdullahi Canchola on 42-72-8018Fdzesbcqae Ql (Bld)Microcytes [Presence] in Blood by Light microscopySt. Mary'S Medical CenterMonocytes Auto (Bld) [#/Vol] Ordered By: Abdullahi Canchola on 97-04-7962Wjeachqtv (Bld) [#/Vol]Automated blood monocyte countHigh0.0-0.8St. [facility] Medical CenterMonocytes/100 WBC Auto (Bld)Ordered By: Abdullahi Canchola on 35-78-4182Ylsjblhlt/100 WBC (Bld)Automated monocyte %.[facility]S Medical CenterNeutrophils Auto (Bld) [#/Vol] Ordered By: Abdullahi Canchola on 98-44-5648Gdchusoslzt (Bld) [#/Vol]Neutrophils [#/volume] in Blood by Automated count1.8-7.7FMarion Hospital Neutrophils/100 WBC Auto (Bld)Ordered By: Abdullahi Canchola on 10-11-2024 Neutrophils/100 WBC (Bld)Automated neutrophil %.[facility] Medical CenterNo Panel InformationOrdered By: Abdullahi Canchola on 45-82-7000Etwtjkk Glucose CommentGlu2: cleaned [facility] HospitalGlu2: cleaned [facility] HospitalEstimated GFR (CKD-EPI)29.874 mL/Min [facility] Medical CenterPharmacy Creatinine Clearance (Chem35.93 [facility]29.874 mL/MinSt. Mary'S Medical Center 35.93St. [facility]S Medical CenterNucleated erythrocytes [Presence] in Blood by Automated countOrdered By: Abdullahi Canchola on 62-40-2223Bchkgfnhb RBC Auto Ql (Bld)Nucleated erythrocytes [Presence] in Blood by Automated count0-0.5 [facility] Medical CenterOvalocytes [Presence] in Blood by Light microscopyOrdered By: Abdullahi Canchola on 93-82-0094Cmfsbsyyos LM Ql (Bld) Ovalocyte detectionSt. Mary'S Medical CenterPlatelet adequacy [Presence] in Blood by Light microscopyOrdered By: Abdullahi Canchola on 20-90-0044Xssbaptpp LM Ql (Bld)Platelet adequacy [Presence] in Blood by Light microscopyNormal St. [facility]'S Medical CenterPlatelet mean volume Auto (Bld) [Entitic vol] Ordered By: Abdullahi Canchola on 12-40-3423Shzcazwx mean volume (Bld) [Entitic vol] Platelet mean volume [Entitic volume] in Blood by Automated count6.6-10.1 [facility] Medical CenterPlatelet morphology finding [Identifier] in BloodOrdered By: Abdullahi Canchola on 01-59-1155Eftelubx morphology finding Nom (Bld)Platelet morphology finding [Identifier] in BloodSt. Mary'S Medical CenterPlatelets Auto (Bld) [#/Vol]Ordered By: Abdullahi Canchola on 10-11-2024 Platelets (Bld) [#/Vol]Platelets [#/volume] in Blood by Automated neaci365-482 [facility] Medical CenterPlatelets Large [Presence] in Blood by Light microscopyOrdered By: Abdullahi aCnchola on 86-68-8276Cshgqjgmo Large LM Ql (Bld) Platelets Large [Presence] in Blood by Light microscopySt. Mary'S Medical CenterPoikilocytosis [Presence] in Blood by Light microscopyOrdered By: Abdullahi Canchola on 57-23-0583Awphiopbllqpne LM Ql (Bld)Poikilocytosis [Presence] in Blood by Light microscopySt. Mary'S Medical CenterPolychromasia [Presence] in Blood by Light microscopyOrdered By: Abdullahi Canchola on 10-11-2024 Polychromasia LM Ql (Bld)Polychromasia [Presence] in Blood by Light microscopy [facility] Medical CenterPotassium [Moles/volume] in Serum or Plasma Ordered By: Abdullahi Canchola on 97-47-8825Yqdricjvj [Moles/Vol]Potassium [Moles/volume] in Serum or Plasma3.5-5.1FMarion HospitalRBC Auto (Bld) [#/Vol]Ordered By: Abdullahi Canchola on 52-74-3200HSA (Bld) [#/Vol] Erythrocytes [#/volume] in Blood by Automated count3.90-5.60[facility] Centercan and CBCon 10-26-3336Rzzlfuerwwyy Ql (Bld)MarkedNoPsychiatric hospital Physician GroupComment on above:Performed By: #### BMP, CK, HS TROP, FE and TIBC, LILA, MG, SCAN CBC ####[facility] [address] [place] [address] USABasophils (Bld) [#/Vol]0.1 10*3/uLNormal0.0-0.2The [facility] Physician GroupComment on above:Performed By: #### BMP, CK, HS TROP, FE and TIBC, LILA, MG, SCAN CBC ####[place] [address] USABasophils/100 WBC (Bld)1.3 %Normal.The [facility] Hospital Physician GroupComment on above:Performed By: #### BMP, CK, HS TROP, FE and TIBC, LILA, MG, SCAN CBC ####[place] [address] USAEosinophils (Bld) [#/Vol]0.3 10*3/uLNormal0.0-0.45 The [facility] Physician GroupComment on above:Performed By: #### BMP, CK, HS TROP, FE and TIBC, LILA, MG, SCAN CBC ####[place] [address] USAEosinophils/100 WBC (Bld)4.0 %Normal.The [facility] Hospital Physician GroupComment on above:Performed By: #### BMP, CK, HS TROP, FE and TIBC, LILA, MG, SCAN CBC ####[place] [address] USAErythrocyte distribution width (RBC) [Ratio]23.3 % High12.0-14.8The [facility] Hospital Physician GroupComment on above:Performed By: #### BMP, CK, HS TROP, FE and TIBC, LILA, MG, SCAN CBC ####[place] [address] USAHematocrit (Bld) [Volume fraction]38.9 %Skluhz96.8-50.0The [facility] Hospital Physician GroupComment on above:Performed By: #### BMP, CK, HS TROP, FE and TIBC, LILA, MG, SCAN CBC ####[place] [address] USAHemoglobin (Bld) [Mass/Vol]13.1 g/dL Yisaol99.0-17.0The [facility] Physician GroupComment on above:Performed By: #### BMP, CK, HS TROP, FE and TIBC, LILA, MG, SCAN CBC ####[address] [address] USALarge PlateletsSlightNormalThe [facility] Community Hospital Physician GroupComment on above:Result Comment: PERFORMED BY:[address] [place], [place] [phone] MEDICAL DIRECTORMIKE CABAN M.D.Performed By: #### BMP, CK, HS TROP, FE and TIBC, LILA, MG, SCAN CBC ####[address] [address] USALymphocytes (Bld) [#/Vol]2.0 10*3/uLNormal1.00-4.8 The [facility] Physician GroupComment on above:Performed By: #### BMP, CK, HS TROP, FE and TIBC, LILA, MG, SCAN CBC ####[place] [phone] USALymphocytes/100 WBC (Bld)25.5 %Normal.The [facility] Hospital Physician GroupComment on above:Performed By: #### BMP, CK, HS TROP, FE and TIBC, LILA, MG, SCAN CBC ####[address] [address] [facility] CITYH (RBC) [Entitic mass]25.7 pgLow27.5-35.2The [facility] Hospital Physician GroupComment on above:Performed By: #### BMP, CK, HS TROP, FE and TIBC, LILA, MG, SCAN CBC ####[address] [address] [facility] CITYV (RBC) [Entitic vol]76.5 fLLow83.5-101The [facility] Physician GroupComment on above:Performed By: #### BMP, CK, HS TROP, FE and TIBC, LILA, MG, SCAN CBC ####[address] [address] USAMean Corpuscular HGB Conc33.6 g/mYRghczw45.5-35.6The [facility] Physician GroupComment on above:Performed By: #### BMP, CK, HS TROP, FE and TIBC, LILA, MG, SCAN CBC ####[place] [address] USAMicrocytosisModerateNormalThe [facility] Hospital Physician GroupComment on above:Performed By: #### BMP, CK, HS TROP, FE and TIBC, LILA, MG, SCAN CBC ####[place] [address] USAMonocytes (Bld) [#/Vol]0.9 10*3/uLHigh0.0-0.8The [facility] Physician [facility] Comment on above:Performed By: #### BMP, CK, HS TROP, FE and TIBC, LILA, MG, SCAN CBC ####[place] [address] [place] Monocytes/100 WBC (Bld)10.9 %Normal.The [facility] Physician GroupComment on above:Performed By: #### BMP, CK, HS TROP, FE and TIBC, LILA, MG, SCAN CBC ####[place] [address] [place] Neutrophils (Bld) [#/Vol]4.6 10*3/uLNormal1.8-7.7The [facility] Physician [facility] Comment on above:Performed By: #### BMP, CK, HS TROP, FE and TIBC, LILA, MG, SCAN CBC ####[place] [address] [place] Neutrophils/100 WBC (Bld)58.3 %Normal.The [facility] Physician GroupComment on above:Performed By: #### BMP, CK, HS TROP, FE and TIBC, LILA, MG, SCAN CBC ####[place] [address] USANRBC% 0.1 /100{WBC}Normal0-0.5The [facility] Physician GroupComment on above:Performed By: #### BMP, CK, HS TROP, FE and TIBC, LILA, MG, SCAN CBC ####[place] [phone] USAOvalocytesSFirstHealth Physician GroupComment on above:Performed By: #### BMP, CK, HS TROP, FE and TIBC, LILA, MG, SCAN CBC ####[place] [address] USAPlatelet EstimateNormalNormCampbellton-Graceville Hospital Physician GroupComment on above:Performed By: #### BMP, CK, HS TROP, FE and TIBC, LILA, MG, SCAN CBC ####[place] [address] USAPlatelet mean volume (Bld) [Entitic vol]9.5 fLNormal 6.6-10.1The [facility] Physician GroupComment on above:Performed By: #### BMP, CK, HS TROP, FE and TIBC, LILA, MG, SCAN CBC ####[facility] [id number] [place] [address] USAPlatelets (Bld) [#/Vol]176 10*3/uL Rntkuf154-572Ocr [facility] Physician [facility] HospitalComment on above:Performed By: #### BMP, CK, HS TROP, FE and TIBC, LILA, MG, SCAN CBC ####[place] [address] USAPoikilocytosisAsheville Specialty Hospital Physician GroupComment on above:Performed By: #### BMP, CK, HS TROP, FE and TIBC, LILA, MG, SCAN CBC ####[place] [address] USAPolychromasiaSFirstHealth Physician GroupComment on above:Performed By: #### BMP, CK, HS TROP, FE and TIBC, LILA, MG, SCAN CBC ####[place] [address] USARBC (Bld) [#/Vol]5.09 10*6/uLNormal3.90-5.60The [facility]ician Group Comment on above:Performed By: #### BMP, CK, HS TROP, FE and TIBC, LILA, MG, SCAN CBC ####[facility] [address] [place] [address] [facility] WBC (Bld) [#/Vol]7.9 10*3/uLNormal4.1-10.5The [facility] Physician GroupComment on above:Performed By: #### BMP, CK, HS TROP, FE and TIBC, LILA, MG, SCAN CBC ####[facility] [address] [place] [address] USASerum or plasma anion gap determinationOrdered By: Abdullahi Canchola on 26-98-9296Wwzov gap [Moles/Vol]Serum or plasma anion gap determinationHigh6.0-15.0[facility] Medical Centererum or plasma iron binding capacity measurement (mass/volume)Ordered By: Abdullahi Canchola on 72-99-2040Dhhw binding capacity [Mass/Vol]Iron binding capacity [Mass/volume] in Serum or Fhvojl642-740JvwhfslmgCoshocton Regional Medical Centererum or plasma iron saturation measurement (mass fraction)Ordered By: Abdullahi Canchola on 39-82-2558Soqk saturation [Mass fraction] Iron saturation [Mass Fraction] in Serum or RtcgblVvr84-64QrupbvixgCoshocton Regional Medical Centerodium [Moles/volume] in Serum or PlasmaOrdered By: Abdullahi Canchola on 60-75-7740Rneqbo [Moles/Vol]Sodium [Moles/volume] in Serum or Tivksr310-604 [facility] Medical CenterTransferrin [Mass/volume] in Serum or Plasma Ordered By: Abdullahi Canchola on 93-13-4667Dttcpijuzmw [Mass/Vol]Transferrin [Mass/volume] in Serum or Olmiki373-039SmhqsmxnuSt. Mary'S Medical CenterTroponin I High Sensitivityon 66-46-7168Njxrzrxw I High Raifuevjbzj0Cpilwe4-01Tjl [facility] Physician GroupComment on above:Result Comment: The Troponin units of report have been changed to meet the Chest Pain Accreditationrequirement, element EC5.M1l2. Troponin units are changed from pg/ml to ng/L. Also, the decimal is removed and results are in whole numbers.PERFORMED BY:[address] [place], [place] [phone] MEDICAL DIRECTORMOKAREN CABAN M.D.Performed By: #### BMP, CK, HS TROP, FE and TIBC, LILA, MG, SCAN CBC ####[facility] [place] [address] USATroponin I.cardiac [Mass/volume] in Serum or Plasma by Detection limit <= 0.01 ng/Ordered By: Abdullahi Canchola on 71-16-7138Fcojrtrc I.cardiac DL <= 0.01 ng/mL [Mass/Vol]Troponin I.cardiac [Mass/volume] in Serum or Plasma by Detection limit <= 0.01 ng/0-20[facility] Comment on above:The Troponin units of report have been changed to meet the Chest Pain Accreditation requirement, element EC5.M1l2. Troponin units are changed from pg/ml to ng/L. Also, the decimal is removed and results are in whole numbers.Urea nitrogen [Mass/volume] in Serum or PlasmaOrdered By: Abdullahi Canchola on 19-65-7218Dbzz nitrogen [Mass/Vol]Urea nitrogen [Mass/volume] in Serum or PlasmaHigh7-25St. [facility]'S Medical CenterWBC Auto (Bld) [#/Vol]Ordered By: Abdullahi Canchola on 07-91-8542MTE (Bld) [#/Vol]Leukocytes [#/volume] in Blood by Automated count4.1-10.5FMarion HospitalAnisocytosis LM Ql (Bld)Ordered By: Jez Dominguez on 64-94-3381Hmyqvpiqnaka Ql (Bld)Anisocytosis [Presence] in Blood by Light microscopySt. Mary'S Medical CenterB-Type Natriuretic Peptideon 90-22-4090Ibnsemnpwuv peptide B (Bld) [Mass/Vol]17.0 pg/mL Normal5-100The [facility] Physician GroupComment on above:Result Comment: PERFORMED BY:[address] [place], [place] [phone] MEDICAL DIRECTORMIKE CABAN M.D. Performed By: #### HS TROP, BNP, PT, BMP, SCAN CBC, CK ####[facility] [place] [address] USABasic Metabolic Panelon 49-34-9665Ocvvg gap [Moles/Vol]15.5 mmol/LHigh6.0-15.0The [facility] Physician GroupComment on above:Performed By: #### HS TROP, BNP, PT, BMP, SCAN CBC, CK ####[address] [address] USACalcium [Mass/Vol]9.7 mg/dLNormal8.6-10.3The [facility] Physician GroupComment on above: Performed By: #### HS TROP, BNP, PT, BMP, SCAN CBC, CK ####[place] [id number] USAChloride [Moles/Vol]98 mmol/L Yavtez84-297Fbx [facility] Physician GroupComment on above:Performed By: #### HS TROP, BNP, PT, BMP, SCAN CBC, CK ####[place] [address] USACO2 [Moles/Vol]25.6 mmol/CVwpgad63.0-31.0The [facility] Physician GroupComment on above:Performed By: #### HS TROP, BNP, PT, BMP, SCAN CBC, CK ####[place] [address] USACreatinine [Mass/Vol]2.51 mg/dLHigh0.70-1.30The [facility] Physician GroupComment on above:Performed By: #### HS TROP, BNP, PT, BMP, SCAN CBC, CK ####[place] [id number] [place] Creatinine Clr Calc Mgelfwvc52.78NormalThe [facility] Physician GroupComment on above:Result Comment: PERFORMED BY:[address] [place], [place] [phone] MEDICAL DIRECTORMIKE LIU M.D.Performed By: #### HS TROP, BNP, PT, BMP, SCAN CBC, CK ####[place] [id number] [place] Estimated GFR28.735 mL/MinNormalThe [facility] Physician [facility] HospitalComment on above: Performed By: #### HS TROP, BNP, PT, BMP, SCAN CBC, CK ####[place] [address] [place] [id number] USAGlucose [Mass/Vol]278 mg/dLHigh 70-100The [facility] Physician GroupComment on above:Result Comment: Random Glucose Reference Range is dependent on time and content of last meal. Glucose of more than 200 mg/dL in a nonstressed, ambulatory subject supports the diagnosis of Diabetes Mellitus. ADA recommended reference rangePerformed By: #### HS TROP, BNP, PT, BMP, SCAN CBC, CK ####[address] [place] [address] USAPotassium [Moles/Vol]4.1 mmol/LNormal3.5-5.1The [facility] Physician [facility] HospitalComment on above:Performed By: #### HS TROP, BNP, PT, BMP, SCAN CBC, CK ####[place] [address] USASodium [Moles/Vol]135 mmol/MCqa780-379Ovt [facility] Physician [facility] Comment on above:Performed By: #### HS TROP, BNP, PT, BMP, SCAN CBC, CK ####[place] [phone] USAUrea nitrogen [Mass/Vol]41 mg/dLHigh7-25The [facility] Physician GroupComment on above:Performed By: #### HS TROP, BNP, PT, BMP, SCAN CBC, CK ####[place] [phone] USABasophils Auto (Bld) [#/Vol]Ordered By: Jez Dominguez on 83-43-8449Pstygqvjr (Bld) [#/Vol]Automated basophil count0.0-0.2FMarion HospitalBasophils/100 WBC Auto (Bld)Ordered By: Jez Dominguez on 94-27-2122Omleroriy/100 WBC (Bld)Automated basophil %.Fire[facility] Regional Medical CenterCalcium [Mass/volume] in Serum or PlasmaOrdered By: Jez Dominguez on 89-14-6589Bxdbbpt [Mass/Vol]Calcium [Mass/volume] in Serum or Plasma8.6-10.3FMarion HospitalCarbon dioxide, total [Moles/volume] in Serum or PlasmaOrdered By: Jez Dominguez on 25-11-9615MP0 [Moles/Vol]Carbon dioxide, total [Moles/volume] in Serum or Plasma 21.0-31.0St. [facility] Medical CenterChloride [Moles/volume] in Serum or PlasmaOrdered By: Jez Dominguez on 73-48-6592Ekiwixcl [Moles/Vol]Chloride [Moles/volume] in Serum or Opefqb82-729VkidegoubSt. Mary'S Medical CenterCreatine Kinaseon 90-11-8208QD [Catalytic activity/Vol]101 U/WKxydef95-164Bmg [facility] Physician GroupComment on above:Performed By: #### HS TROP, CK ####[facility] [address] [place] [address] USACK [Catalytic activity/Vol]126 U/HEgedqr70-354Lcr [place] Physician [facility] HospitalComment on above: Performed By: #### HS TROP, BNP, PT, BMP, SCAN CBC, CK ####[facility] [address] [place] [address] USACreatine kinase [Enzymatic activity/volume] in Serum or PlasmaOrdered By: Jez Dominguez on 40-13-6079QE [Catalytic activity/Vol]Creatine kinase [Enzymatic activity/volume] in Serum or Fdjgbd67-150PxteetjbiSt. Mary'S Medical CenterCreatinine [Mass/volume] in Serum or PlasmaOrdered By: Jez Dominguez on 03-81-5164Nwlxemrodr [Mass/Vol]Creatinine [Mass/volume] in Serum or PlasmaHigh0.70-1.30[facility] ECG 12 lead ECGon 36-95-5475RMH 12 lead ECGNoPsychiatric hospital Physician Group ECG 12 lead ECGNoPsychiatric hospital Physician GroupECG 12 lead ECGNoPsychiatric hospital Physician GroupEosinophils Auto (Bld) [#/Vol]Ordered By: Jez Dominguez on 85-32-5534Rgmwsfqhvgx (Bld) [#/Vol]Automated eosinophil count0.0-0.45 [facility] Medical CenterEosinophils/100 WBC Auto (Bld)Ordered By: Jez Dominguez on 86-91-1918Hxhoxdjhgnn/100 WBC (Bld)Automated eosinophil %. [facility]'S Medical CenterErythrocyte distribution width Auto (RBC) [Ratio]Ordered By: Jez Dominguez on 50-43-6078Rvxswlfabsw distribution width (RBC) [Ratio]Erythrocyte distribution width [Ratio] by Automated countHigh 12.0-14.8St. [facility]'S Medical CenterErythrocyte morphology finding [Identifier] in BloodOrdered By: Jez Dominguez on 24-38-0200HFV morphology finding Nom (Bld)RBC morphologySt. Mary'S Medical CenterGlucose Poct Glucometerson 21-84-5555Nkzlbfo [Mass/Vol]204 mg/dLNoPsychiatric hospital Physician GroupComment on above:Result Comment: Random Glucose Reference Range is dependent on time and content of last meal. Glucose of more than 200 mg/dL in a nonstressed, ambulatory subject supports the diagnosis of Diabetes Evelyn litus.PERFORMED BY:[facility] [place], [place] [phone] MEDICAL DIRECTORMIKE CABAN M.D. Performed By: #### GLULS ####Point of Care testing,Glucose [Mass/volume] in Serum or PlasmaOrdered By: Jez Dominguez on 99-61-9120Pggploi [Mass/Vol]Glucose [Mass/volume] in Serum or VkeksvAtkq68-432SwdplcdjfSt. Mary'S Medical Center Comment on above:ADA recommended reference rangeRandom Glucose Reference Range is dependent on time and content of last meal. Glucose of more than 200 mg/dL in a nonstressed, ambulatory subject supports the diagnosisof Diabetes Mellitus. Hematocrit Auto (Bld) [Volume fraction]Ordered By: Jez Dominguez on 10-10-2024 Hematocrit (Bld) [Volume fraction]Hematocrit [Volume Fraction] of Blood by Automated count38.8-50.0St. [facility]'S Medical CenterHemoglobin [Mass/volume] in BloodOrdered By: Jez Dominguez on 43-55-6627Afgjrpidwu (Bld) [Mass/Vol]Hemoglobin [Mass/volume] in Blood13.0-17.0St. [facility] Medical CenterINR in Platelet poor plasma by Coagulation assayOrdered By: Jez Dominguez on 30-34-8993IET Coag (PPP) [Relative time]INR in Platelet poor plasma by Coagulation assaySt. Mary'S Medical CenterComment on above:INR Therapeutic Range A) Pre- and [...] by Automated counOrdered By: Jez Dominguez on 29-17-0674ZRR corrected for nucl RBC Auto (Bld) [#/Vol]Leukocytes [#/volume] corrected for nucleated erythrocytes in Blood by Automated coun4.1-10.5FMarion HospitalLymphocytes Auto (Bld) [#/Vol]Ordered By: Jez Dominguez on 25-92-5836Nhvzkoilebs (Bld) [#/Vol] Lymphocytes [#/volume] in Blood by Automated count1.00-4.8St. [facility]'S Medical CenterLymphocytes/100 WBC Auto (Bld)Ordered By: Jez Dominguez on 99-94-3597Meyfyqsqxep/100 WBC (Bld)Lymphocytes/100 leukocytes in Blood by Automated count.[facility] HospitalH Auto (RBC) [Entitic mass] Ordered By: Jez Dominguez on 82-15-1582ABQ (RBC) [Entitic mass]MCH [Entitic mass] by Automated glkjwTvz15.5-35.2FMarion HospitalMCHC Auto (RBC) [Mass/Vol]Ordered By: Jez Dominguez on 26-11-1445WKSO (RBC) [Mass/Vol]MCHC [Mass/volume] by Automated count32.5-35.6FSt. Rita's HospitalV Auto (RBC) [Entitic vol]Ordered By: Jez Dominguez on 78-14-6132IQP (RBC) [Entitic vol]MCV [Entitic volume] by Automated ukkrxBlv65.5-101Firelands Regional Medical CenterMicrocytes LM Ql (Bld)Ordered By: Jez Dominguez on 10-10-2024 Microcytes Ql (Bld)Microcytes [Presence] in Blood by Light microscopySt. Mary'S Medical CenterMonocyte distribution width [Entitic volume] in Blood by AutomatedOrdered By: Jez Dominguez on 08-67-1181Ozkaqbqv distribution width Auto (Bld) [Entitic vol]Monocyte distribution width [Entitic volume] in Blood by Automated0.00-20.00St. [facility] Medical CenterMonocytes Auto (Bld) [#/Vol] Ordered By: Jez Dominguez on 06-68-2831Ebgdfvdka (Bld) [#/Vol]Automated blood monocyte count0.0-0.8St. [facility] Medical CenterMonocytes/100 WBC Auto (Bld)Ordered By: Jez Dominguez on 38-58-6963Hhktwyeip/100 WBC (Bld)Automated monocyte %.[facility]. [facility]'S Medical CenterNatriuretic peptide B [Mass/Vol] Ordered By: Jez Dominguez on 07-32-6039Oczrhacpbzp peptide B (Bld) [Mass/Vol]BNP ser/plas5-100St. [facility]S Medical CenterNeutrophils Auto (Bld) [#/Vol] Ordered By: Jez Dominguez on 06-43-2752Obsbxfogzic (Bld) [#/Vol]Neutrophils [#/volume] in Blood by Automated count1.8-7.7FMarion Hospital Neutrophils/100 WBC Auto (Bld)Ordered By: Jez Dominguez on 10-10-2024 Neutrophils/100 WBC (Bld)Automated neutrophil %.[facility] Medical CenterNo Panel InformationOrdered By: Jez Dominguez on 27-95-9858Msaluvroe GFR (CKD-EPI)28.735 mL/MinSt. Mary'S Medical CenterPharmacy Creatinine Clearance (Chem34.78St. [facility]S Medical CenterNucleated erythrocytes [Presence] in Blood by Automated countOrdered By: Jez Dominguez on 10-10-2024 Nucleated RBC Auto Ql (Bld)Nucleated erythrocytes [Presence] in Blood by Automated count0-0.5FMarion HospitalPlatelet adequacy [Presence] in Blood by Light microscopyOrdered By: Jez Dominguez on 10-10-2024 Platelets LM Ql (Bld)Platelet adequacy [Presence] in Blood by Light microscopy NormalSt. Mary'S Medical CenterPlatelet mean volume Auto (Bld) [Entitic vol]Ordered By: Jez Dominguez on 40-40-2598Bspfiejq mean volume (Bld) [Entitic vol]Platelet mean volume [Entitic volume] in Blood by Automated count6.6-10.1 [facility] Medical CenterPlatelet morphology finding [Identifier] in BloodOrdered By: Jez Dominguez on 40-80-5358Lbfzlwrv morphology finding Nom (Bld) Platelet morphology finding [Identifier] in BloodNormalSt. Mary'S Medical CenterPlatelets Auto (Bld) [#/Vol]Ordered By: Jez Dominguez on 10-10-2024 Platelets (Bld) [#/Vol]Platelets [#/volume] in Blood by Automated -477 [facility]S Medical CenterPoikilocytosis [Presence] in Blood by Light microscopyOrdered By: Jez Dominguez on 47-89-4373Aypbnxksnplcti LM Ql (Bld) Poikilocytosis [Presence] in Blood by Light microscopySt. Mary'S Medical CenterPolychromasia [Presence] in Blood by Light microscopyOrdered By: Jez Dominguez on 94-71-2582Necwpbexxnfuh LM Ql (Bld)Polychromasia [Presence] in Blood by Light microscopySt. Mary'S Medical CenterPotassium [Moles/volume] in Serum or PlasmaOrdered By: Jez Dominguez on 00-57-4337Cyzrswppb [Moles/Vol] Potassium [Moles/volume] in Serum or Plasma3.5-5.1FMarion HospitalProthrombin Time INRon 67-31-0652ZDP Coag (PPP) [Relative time]1.0 {INR} NormalThe [facility] Physician GroupComment on above:Result Comment: INR [...] with mechanical heart valves: 3 - 4.5PERFORMED BY:[facility] ALEXANDRA [phone] MEDICAL DIRECTORMIKE CABAN M.D. Performed By: #### HS TROP, BNP, PT, BMP, SCAN CBC, CK ####[address] [place] [address] USAPT Coag (PPP) [Time]11.4 s Normal9.0-12.9[facility] Physician [facility] HospitalComment on above:Result Comment: A hematocrit value greater than 55% may lead to inaccurate results in coagulation testing. Patients having hematocrit values >55% require a special collection tube for coagulation studies. Please contact the laboratory at [phone] for redraw instructions.Performed By: #### HS TROP, BNP, PT, BMP, SCAN CBC, CK ####[address] [place] [address] [place] Prothrombin time (PT)Ordered By: Jez Dominguez on 23-70-4598YO Coag (PPP) [Time] Prothrombin time (PT)9.0-12.9St. Mary'S Medical CenterComment on above:A hematocrit value greater than 55% may lead to inaccurate results in coagulation testing. Patientshaving hematocrit values >55% require a special collection tube for coagulation studies. Please contact the laboratory at [phone] for redraw instructions.RBC Auto (Bld) [#/Vol]Ordered By: Jez Dominguez on 10-10-2024 RBC (Bld) [#/Vol]Erythrocytes [#/volume] in Blood by Automated countHigh 3.90-5.60[facility] Medical Centercan and CBCon 62-39-0234Mpobaxmmfewx Ql (Bld)MarkedNoACMC Healthcare System GlenbeighComment on above:Performed By: #### HS TROP, BNP, PT, BMP, SCAN CBC, CK ####[address] [address] USABasophils (Bld) [#/Vol]0.1 10*3/uLNormal0.0-0.2 [facility] Physician [facility] HospitalComment on above:Performed By: #### HS TROP, BNP, PT, BMP, SCAN CBC, CK ####[address]Basophils/100 WBC (Bld)1.3 %Normal.The [facility] Physician GroupComment on above:Performed By: #### HS TROP, BNP, PT, BMP, SCAN CBC, CK ####[address] Eosinophils (Bld) [#/Vol]0.3 10*3/uLNormal0.0-0.45The [facility] Comment on above:Performed By: #### HS TROP, BNP, PT, BMP, SCAN CBC, CK ####[address] Eosinophils/100 WBC (Bld)4.0 %Normal.The [facility] Physician GroupComment on above:Performed By: #### HS TROP, BNP, PT, BMP, SCAN CBC, CK ####[address] StreetErythrocyte distribution width (RBC) [Ratio]23.4 %High12.0-14.8The [facility] Physician [facility] Comment on above:Performed By: #### HS TROP, BNP, PT, BMP, SCAN CBC, CK ####[address] Hematocrit (Bld) [Volume fraction]42.4 %Ngkujd56.8-50.0The [facility] Physician GroupComment on above:Performed By: #### HS TROP, BNP, PT, BMP, SCAN CBC, CK ####[address] Hemoglobin (Bld) [Mass/Vol]14.4 g/pLDqawob55.0-17.0The [facility] Comment on above:Performed By: #### HS TROP, BNP, PT, BMP, SCAN CBC, CK ####[address] Lymphocytes (Bld) [#/Vol]2.0 10*3/uLNormal1.00-4.8The [facility] Comment on above:Performed By: #### HS TROP, BNP, PT, BMP, SCAN CBC, CK ####[id number] [place] Lymphocytes/100 WBC (Bld)23.4 %Normal.The [facility] Physician GroupComment on above:Performed By: #### HS TROP, BNP, PT, BMP, SCAN CBC, CK ####[phone] [facility] (RBC) [Entitic mass]25.6 pgLow27.5-35.2The [facility] Physician GroupComment on above:Performed By: #### HS TROP, BNP, PT, BMP, SCAN CBC, CK ####[address]V (RBC) [Entitic vol]75.5 fLLow 83.5-101The [facility] Physician GroupComment on above:Performed By: #### HS TROP, BNP, PT, BMP, SCAN CBC, CK ####[phone] USAMean Corpuscular HGB Conc33.9 g/mIExdldw02.5-35.6The [facility] Physician GroupComment on above:Performed By: #### HS TROP, BNP, PT, BMP, SCAN CBC, CK ####[phone] USAMicrocytosisMarkedNormalThe [facility] Hospital Physician GroupComment on above: Performed By: #### HS TROP, BNP, PT, BMP, SCAN CBC, CK ####[phone] USAMonocytes (Bld) [#/Vol]0.8 10*3/uLNormal0.0-0.8The [facility] Physician GroupComment on above:Performed By: #### HS TROP, BNP, PT, BMP, SCAN CBC, CK ####[phone] USAMonocytes/100 WBC (Bld)16.66 %Normal0.00-20.00 The [facility] Physician GroupComment on above:Performed By: #### HS TROP, BNP, PT, BMP, SCAN CBC, CK ####[place] [address] USAMonocytes/100 WBC (Bld)9.5 %Normal.The [facility] Physician GroupComment on above:Performed By: #### HS TROP, BNP, PT, BMP, SCAN CBC, CK ####[address] Neutrophils (Bld) [#/Vol]5.3 10*3/uLNormal1.8-7.7The [facility] Comment on above:Performed By: #### HS TROP, BNP, PT, BMP, SCAN CBC, CK ####[address] Neutrophils/100 WBC (Bld)61.8 %Normal.The [facility] Physician GroupComment on above:Performed By: #### HS TROP, BNP, PT, BMP, SCAN CBC, CK ####[place] [address] USANRBC%0.2 /100{WBC} Normal0-0.5The [facility] Physician GroupComment on above:Performed By: #### HS TROP, BNP, PT, BMP, SCAN CBC, CK ####[place] [address] USAPlatelet EstimateNormalNormalNormalThe [facility] Physician GroupComment on above:Performed By: #### HS TROP, BNP, PT, BMP, SCAN CBC, CK ####[phone] [facility] Platelet mean volume (Bld) [Entitic vol]9.8 fLNormal6.6-10.1The [facility] Physician GroupComment on above:Performed By: #### HS TROP, BNP, PT, BMP, SCAN CBC, CK ####[address] Platelet MorphologyNormalNormalPalm Beach Gardens Medical Center Physician GroupComment on above:Result Comment: PERFORMED BY:[address] [address] [address] [place], [place] [phone] MEDICAL DIRECTORMIKE LIU M.D.Performed By: #### HS TROP, BNP, PT, BMP, SCAN CBC, CK ####[address] [address] [facility] Platelets (Bld) [#/Vol]203 10*3/mULgkmps144-135Nkd [facility] Comment on above:Performed By: #### HS TROP, BNP, PT, BMP, SCAN CBC, CK ####[address] [address] [facility] PoikilocytosisSFirstHealth Physician GroupComment on above: Performed By: #### HS TROP, BNP, PT, BMP, SCAN CBC, CK ####[address] [address] [facility]OSPITALPolychromasiaSFirstHealth Physician GroupComment on above:Performed By: #### HS TROP, BNP, PT, BMP, SCAN CBC, CK ####[address] [address] USARBC (Bld) [#/Vol]5.62 10*6/uLHigh3.90-5.60The [facility] Physician GroupComment on above:Performed By: #### HS TROP, BNP, PT, BMP, SCAN CBC, CK ####[address] [address] USAWBC (Bld) [#/Vol]8.7 10*3/uLNormal4.1-10.5The [facility] Physician GroupComment on above:Performed By: #### HS TROP, BNP, PT, BMP, SCAN CBC, CK ####[address] [address] USASerum or plasma anion gap determinationOrdered By: Jez Dominguez on 36-77-9069Flkox gap [Moles/Vol] Serum or plasma anion gap determinationHigh6.0-15.0[facility] Medical Centerodium [Moles/volume] in Serum or PlasmaOrdered By: Jez Dominguez on 21-99-4067Jywfxv [Moles/Vol]Sodium [Moles/volume] in Serum or WpxnvbRjt440-924 [facility] Medical CenterTroponin I High Sensitivityon 10-10-2024 Troponin I High Cinekmxjtgs4Mpqwjb2-77Xln [facility] Physician GroupComment on above:Result Comment: The Troponin units of report have been changed to meet the Chest Pain Accreditationrequirement, element EC5.M1l2. Troponin units are changed from pg/ml to ng/L. Also, the decimal is removed and results are in whole numbers.PERFORMED BY:[address]ETDarrian MaryCHALINO, [place] [phone] MEDICAL DIRECTORMIKE LEES ALEXA VirkPerformed By: #### HS TROP, CK ####[address] [address] USATroponin I High Onpkhdrspey9Spupyw6-79 The [facility] Physician GroupComment on above:Order Comment: 4P/27Result Comment: The Troponin units of report have been changed to meet the Chest Pain Accreditationrequirement, element EC5.M1l2. Troponin units are changed from pg/ml to ng/L. Also, the decimal is removed and results are in whole numbers.PERFORMED BY:[address] [place]ELIMaryWE[place], [place] [phone] MEDICAL DIRECTORMIKE LEESALEXA Virk Performed By: #### HS TROP ####[address] [address] USATroponin I High Dvtvbtdtmdm7Nlhzqy3-88Ifi [facility] Physician GroupComment on above:Result Comment: The Troponin units of report have been changed to meet the Chest Pain Accreditationrequirement, element EC5.M1l2. Troponin units are changed from pg/ml to ng/L. Also, the decimal is r emoved and results are in whole numbers.PERFORMED BY:[facility] [place], [place] [phone] MEDICAL DIRECTORMIKE CABAN M.D.Performed By: #### HS TROP, BNP, PT, BMP, SCAN CBC, CK ####[facility] [place] [address] USATroponin I.cardiac [Mass/volume] in Serum or Plasma by Detection limit <= 0.01 ng/Ordered By: Jez Dominguez on 51-59-6382Mgjwfoua I.cardiac DL <= 0.01 ng/mL [Mass/Vol]Troponin I.cardiac [Mass/volume] in Serum or Plasma by Detection limit <= 0.01 ng/0-20St. [facility]S Medical CenterComment on above:The Troponin units of report have been changed to meet the Chest Pain Accreditation requirement, element EC5.M1l2. Troponin units are changed from pg/ml to ng/L. Also, the decimal is removed and results are in whole numbers.Urea nitrogen [Mass/volume] in Serum or PlasmaOrdered By: Jez Dominguez on 55-37-9361Zaln nitrogen [Mass/Vol]Urea nitrogen [Mass/volume] in Serum or PlasmaHigh7-25 [facility]S Medical CenterWBC Auto (Bld) [#/Vol]Ordered By: Jez Dominguez on 70-60-4512QSY (Bld) [#/Vol]Leukocytes [#/volume] in Blood by Automated count 4.1-10.5FMarion HospitalX-ray reportOrdered By: Олег Oscar on 12-22-4303Mmskx report[address] [address] XRay Report Signed Patient: Myra Pickard SR MR#: [id number] : 1965 Acct:[id number] Age/Sex: 59 / M ADM Date: 5 [...] MD 10/10/24 1509 Signed By: 10/10/[address] [facility] Work Phone: xr chest 2V*on 16-71-4535NP chest 2V*NormalThe [facility] Physician GroupAmbulatory Visit Summaryon 65-41-5223Jfxchdolyk Visit SummaryAmbulatory Visit Summary MYRA PICKARD SR [...] Yeyo ROWE MD Where: [facility] [address] [address]- You Need to Schedule the Following Appointments Follow Up with Yeyo ROWE MD, URL When: Where: [address] [place] [address]- Medications What How Much When Instructions Unchanged tamsulosin (tamsulosin 0.4 mg Cap) 1 Capsules By Mouth 2 times a day Pickup at [facility]/pharmacy #[id number] Unchanged albuterol (ProAir HFA) Inhalation Every 6 [...] Transdermal Every day Cont (more content not included)...[facility] Ambulatory Visit SummaryAmbulatory Visit Summary MYRA [...] MARYBEL VANG PA-C Where: [facility] [address] [place] [address]- You Need to Schedule the Following Appointments Follow Up with SOLEDAD HERRERA, ROSALIA Garcia When: Where: [address] [place] [address]- Medications What How Much When Instructions Unchanged [...] Contact prescribing physician if (more content not included)...[facility] HospitalUrology Office/Clinic Noteon 12-34-7653Qgtkgox Office/Clinic NoteUrology Office/Clinic Note Chief Complaint f/u [...] weeks in November 2022. Pt presented to [facility] ER 07/24/24 with sudden onset scrotal/groin [...] 5. 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 Hx of [place]. Elevated risk for periop complications in the future. Follow-up With When Contact Information SOLEDAD HERRERA, Yeyo Blum, URL [address] [place] [address]- Additional Instructions: 4 mos w/ PVR Patient [...] COPD type A Fibromyalgi (more content not included)...[facility] Comment on above:Result Comment: Electronically Signed By: Yeyo ROWE MD\.br\Date and Time Signed: 09/27/24 12:03 EDT\.br\Electronically Co-Signed By: Mattie Foster\.br\Date and Time Co-Signed: 09/28/2511:00 FRYHdW4n HPLC (Bld) [Mass fraction]on 93-86-6275EhC8y (Bld) [Mass fraction]Hemoglobin A1c/Hemoglobin.total in Blood by HPLCOur [facility] Alanine aminotransferase [Enzymatic activity/volume] in Serum or PlasmaOrdered By: Kevon Viera on 30-73-5675KMG [Catalytic activity/Vol]Alanine aminotransferase [Enzymatic activity/volume] in Serum or PlasmaSt. Mary'S Medical CenterAlbumin [Mass/volume] in Serum or Plasma by Bromocresol green (BCG) dye binding methoOrdered By: Kevon Viera on 26-28-8379Nqhpuqr BCG dye [Mass/Vol]Albumin [Mass/volume] in Serum or Plasma by Bromocresol green (BCG) dye binding methoLow3.5-5.7FMarion HospitalAlkaline phosphatase [Enzymatic activity/volume] in Serum or PlasmaOrdered By: Obshelly Haydenomar on 42-81-8322ZDB [Catalytic activity/Vol]Alkaline phosphatase [Enzymatic activity/volume] in Serum or Zmpukf75-467IrhkaojimSt. Mary'S Medical Center Aspartate aminotransferase [Enzymatic activity/volume] in Serum or PlasmaOrdered By: Obaydamaira Daromar on 46-22-3028GKY [Catalytic activity/Vol]Aspartate aminotransferase [Enzymatic activity/volume] in Serum or PuxpshDpt69-49RdscekcbySt. Mary'S Medical CenterBilirubin.total [Mass/volume] in Serum or PlasmaOrdered By: Objosedamaira Haydenomar on 45-52-8474Yyhewkitl [Mass/Vol]Bilirubin.total [Mass/volume] in Serum or Plasma0.3-1.0St. [facility]S Medical CenterCalcium [Mass/volume] in Serum or PlasmaOrdered By: Objosedah Daromar on 18-17-0963Hwufllv [Mass/Vol]Calcium [Mass/volume] in Serum or PlasmaLow8.6-10.3FMarion HospitalCarbon dioxide, total [Moles/volume] in Serum or PlasmaOrdered By: Objosedamaira Daromar on 21-50-3853GP7 [Moles/Vol]Carbon dioxide, total [Moles/volume] in Serum or Nqneft06.0-31.0[facility] Chloride [Moles/volume] in Serum or PlasmaOrdered By: Objosedamaira Haydenomar on 16-79-3537Rykauqmn [Moles/Vol]Chloride [Moles/volume] in Serum or PlasmaHigh 98-107St. [facility]S Medical CenterComprehensive Metabolic Panelon 48-65-4531Ovgfpbh [Mass/Vol]3.4 g/dLLow3.5-5.7The [facility] Comment on above:Performed By: #### CBCNO, CMP ####[facility] [address] [place], [place] [address]BFDRuncapp/Globulin [Mass ratio]1.4 {ratio}NormalThe [facility] Physician GroupComment on above:Performed By: #### BENIGNO, CMP ####[facility] [place] [address] USAALP [Catalytic activity/Vol]93 U/MPkskik01-030Fjn [facility] Comment on above:Performed By: #### BENIGNO, CMP ####[facility] [place] [address]AKLEPD [Catalytic activity/Vol]9 U/LNormal 7-52The [facility] Physician GroupComment on above:Performed By: #### BENIGNO, CMP ####[facility]ice[address] [place] [address]ZOJIuhls gap [Moles/Vol]10.7 mmol/LNormal6.0-15.0The [facility] Physician GroupComment on above:Performed By: #### BENIGNO, CMP ####[facility]iceat[address] health [place], [place] [address]TTJZQL [Catalytic activity/Vol]12 U/BVio82-13Fey [facility] Physician GroupComment on above:Performed By: #### BENIGNO, CMP ####[facility] [place], [place] [address]ZSX Bilirubin [Mass/Vol]0.3 mg/dLNormal0.3-1.0The [facility] Physician GroupComment on above:Performed By: #### BENIGNO, CMP ####[facility]at[address] health [place], [place] [address]VDGStprjuj [Mass/Vol]7.5 mg/dLLow8.6-10.3The [facility] Physician GroupComment on above:Performed By: #### BENIGNO, CMP ####[facility] [place], [place] [address]ZZAWqkunrgd [Moles/Vol]111 mmol/VMahf25-292Oey [facility] Physician GroupComment on above: Performed By: #### BENIGNO, CMP ####[facility]ice[address] [place] [address]NCKWW6 [Moles/Vol]21.5 mmol/MHivity61.0-31.0The [facility] Physician GroupComment on above:Performed By: #### BENIGNO, CMP ####[facility] [place], [place] [address]WWR Creatinine [Mass/Vol]1.59 mg/dLHigh0.70-1.30The [facility] Physician GroupComment on above:Performed By: #### BENIGNO, CMP ####[facility] [place], [place] [address]GPQCodvyhzkfb Clr Calc Incakuuu20.91NormHCA Florida Englewood Hospital Physician GroupComment on above:Result Comment: PERFORMED BY:[address] [place], [place] [phone] MEDICAL DIRECTORMIKE CABAN M.D.Performed By: #### BENIGNO, CMP ####[address] [address]ORB Estimated GFR49.698 mL/MinNoPsychiatric hospital Physician [facility] HospitalComment on above: Performed By: #### BENIGNO, CMP ####[address] [address]DCVMvxqjsxo (S) [Mass/Vol]2.4 g/dLPalm Beach Gardens Medical Center Physician [facility] HospitalComment on above:Performed By: #### BENIGNO, CMP ####[address] [address]YPLUkzkqzr [Mass/Vol]140 mg/rDKkmq68-593Csb [facility] Physician GroupComment on above:Result Comment: Random Glucose Reference Range is dependent on time and content of last meal. Glucose of more than 200 mg/dL in a nonstressed, ambulatory subject supports the diagnosis of Diabetes Mellitus. ADA recommended reference rangePerformed By: #### BENIGNO, CMP ####[facility] [place], [place] [address]BCHCdkgvayzc [Moles/Vol]4.2 mmol/LNormal3.5-5.1The [facility] Physician GroupComment on above:Performed By: #### BENIGNO, CMP ####[address] [place], [place] [address]TAHVllpmhs [Mass/Vol]5.8 g/dLLow 6.4-8.9The [facility] Physician GroupComment on above:Performed By: #### CBCNO, CMP ####[facility] [address] [place], [place] [address]FJE Sodium [Moles/Vol]139 mmol/WJtdusd289-418Xpj [facility] Physician GroupComment on above:Performed By: #### CBCNO, CMP ####[facility] [address] [place], [place] [address]TGNTvsq nitrogen [Mass/Vol]13 mg/dLNormal7-25The [facility] Physician GroupComment on above:Performed By: #### CBCNO, CMP ####[facility] [address] [place], [place] [address]BWQ Creatinine [Mass/volume] in Serum or PlasmaOrdered By: Kevon Viera on 42-55-8358Rfucoiszva [Mass/Vol]Creatinine [Mass/volume] in Serum or PlasmaHigh 0.70-1.30St. [facility]S Medical CenterErythrocyte distribution width Auto (RBC) [Ratio]Ordered By: Kevon Viera on 78-71-0658Vbattmxtxfd distribution width (RBC) [Ratio]Erythrocyte distribution width [Ratio] by Automated countHigh 12.0-14.8St. [facility]'S Medical CenterGlobulin Calc (S) [Mass/Vol]Ordered By: Kevon Viera on 94-03-1994Bmbbdfoz (S) [Mass/Vol]Serum globulin measurement by calculation (mass/volume)[facility]S Medical CenterGlucose Glucometer (BldC) [Mass/Vol]Ordered By: Kevon Viera on 89-59-5475Mhxkwoz [Mass/Vol]Capillary blood glucose measurement by glucometer (mass/volume) [facility]S Medical CenterComment on above:Random Glucose Reference Range is dependent on time and content of last meal. Glucose of more than 200 mg/dL in a nonstressed, ambulatory subject supports the diagnosis of Diabetes Mellitus.Glucose Poct Glucometerson 43-81-5313Fjkwqmf [Mass/Vol]150 mg/dLNormal The [facility] Physician GroupComment on above:Result Comment: Random Glucose Reference Range is dependent on time and content of last meal. Glucose of more than 200 mg/dL in a nonstressed, ambulatory subject supports the diagnosis of Diabetes Mellitus.PERFORMED BY:[address] [place]ULDarrianMary[place], [place] [phone] MEDICAL DIRECTORMIKE LIU M.D.Performed By: #### GLULS ####Point of Care testing,Glucose [Mass/Vol]173 mg/dLNormalThFranklin County Medical Center Physician GroupComment on above:Result Comment: Random Glucose Reference Range is dependent on time and content of last meal. Glucose of more than 200 mg/dL in a nonstressed, ambulatory subject supports the diagnosis of Diabetes Mellitus.PERFORMED BY:[address] [place], [place] [phone] MEDICAL DIRECTORMIKE CABAN M.D.Performed By: #### GLULS ####Point of Care testing,Glucose [Mass/volume] in Serum or PlasmaOrdered By: Obshelly Bazzir on 01-36-2305Ptubvtt [Mass/Vol]Glucose [Mass/volume] in Serum or OovabxVnty48-953 [facility] Medical CenterComment on above:ADA recommended reference rangeRandom Glucose Reference Range is dependent on time and content of last meal. Glucose of more than 200 mg/dL in a nonstressed, ambulatory subject supports the diagnosisof Diabetes Mellitus.Hematocrit Auto (Bld) [Volume fraction]Ordered By: Objosedamaira Haydenomar on 89-98-4359Gkgvoaumtm (Bld) [Volume fraction]Hematocrit [Volume Fraction] of Blood by Automated rpvyiQdo45.8-50.0 [facility]S Medical CenterHemoglobin [Mass/volume] in BloodOrdered By: Objosedamaira Haydenomar on 33-30-9641Mezseulivv (Bld) [Mass/Vol]Hemoglobin [Mass/volume] in OzfsyCxm60.0-17.0St. [facility]S Medical CenterHemogram CBC Without Diff on 20-00-8255Ovrxyntijsv distribution width (RBC) [Ratio]19.9 %High12.0-14.8The [facility] Physician GroupComment on above:Performed By: #### CBCNO, CMP ####[facility] [place] [address]PMX Hematocrit (Bld) [Volume fraction]30.0 %Low38.8-50.0The [facility] Physician GroupComment on above:Performed By: #### BENIGNO, CMP ####[address] [address]KGASedolyyiqp (Bld) [Mass/Vol]9.5 g/dLLow13.0-17.0The [facility] Physician GroupComment on above:Performed By: #### BENIGNO, CMP ####[address] [address]QMJEAE (RBC) [Entitic mass]21.5 pgLow27.5-35.2The [facility] Comment on above:Performed By: #### BENIGNO, CMP ####[address] [address]TFCDKI (RBC) [Entitic vol]67.8 fLLow 83.5-101The [facility] Physician GroupComment on above:Performed By: #### BENIGNO, CMP ####[address] [address]MREAxvv Corpuscular HGB Conc31.7 g/dLLow32.5-35.6The [facility] Physician GroupComment on above:Performed By: #### BENIGNO, CMP ####[address] [address]RMCKzmhjbto mean volume (Bld) [Entitic vol]10.1 fLNormal 6.6-10.1The [facility] Physician GroupComment on above:Result Comment: PERFORMED BY:[address] [place]ULDarrianMaryCH[place], [place] [phone] MEDICAL DIRECTORMIKE CABAN M.D.Performed By: #### BENIGNO, CMP ####[address] [address] USAPlatelets (Bld) [#/Vol]153 10*3/aKExjtgr527-181Akz [facility] Comment on above:Performed By: #### BENIGNO, CMP ####[address], [place] [address]MHMILC (Bld) [#/Vol]4.42 10*6/uLNormal 3.90-5.60The [facility] Physician GroupComment on above:Performed By: #### CBCNO, CMP ####[facility] [address] [place], [place] [address]JSPZOC (Bld) [#/Vol]8.0 10*3/uLNormal4.1-10.5The [facility] Physician GroupComment on above:Performed By: #### CBCNO, CMP ####[facility] [address] [place], [place] [address]XKVWbtadsxbri [#/volume] corrected for nucleated erythrocytes in Blood by Automated counOrdered By: Kevon Viera on 08-13-2024 WBC corrected for nucl RBC Auto (Bld) [#/Vol]Leukocytes [#/volume] corrected for nucleated erythrocytes in Blood by Automated coun4.1-10.5FNationwide Children's Hospital Auto (RBC) [Entitic mass]Ordered By: Kevon Haydenomar on 24-09-1520HFM (RBC) [Entitic mass]MCH [Entitic mass] by Automated countLow 27.5-35.2FSt. Rita's HospitalHC Auto (RBC) [Mass/Vol]Ordered By: Kevon Haydenomar on 82-38-1743GPJI (RBC) [Mass/Vol]MCHC [Mass/volume] by Automated nvrppQci25.5-35.6FSt. Rita's HospitalV Auto (RBC) [Entitic vol]Ordered By: Kevon Haydenomar on 11-46-0045UHG (RBC) [Entitic vol]MCV [Entitic volume] by Automated lsjadOye64.5-101[facility] No Panel InformationOrdered By: Kevon Viera on 52-73-4251Ifsbhotuw GFR (CKD-EPI)49.698 mL/MinSt. Mary'S Medical CenterPharmacy Creatinine Clearance (Chem54.91[facility]49.698 mL/MinSt. Mary'S Medical Center54.91[facility] Medical CenterPlatelet mean volume Auto (Bld) [Entitic vol]Ordered By: Obaydah Daromar on 47-49-7794Ycazirpp mean volume (Bld) [Entitic vol]Platelet mean volume [Entitic volume] in Blood by Automated count6.6-10.1FMarion HospitalPlatelets Auto (Bld) [#/Vol]Ordered By: Obaydah Daromar on 95-21-2612Bzyxgpnek (Bld) [#/Vol]Platelets [#/volume] in Blood by Automated aobpa128-985YripzjvppSt. Mary'S Medical Center Potassium [Moles/volume] in Serum or PlasmaOrdered By: Obaydah Daromar on 37-33-1378Zbqngfuko [Moles/Vol]Potassium [Moles/volume] in Serum or Plasma 3.5-5.1FMarion HospitalProtein [Mass/volume] in Serum or Plasma Ordered By: Obaydah Daromar on 15-25-6379Qkimkyg [Mass/Vol]Protein [Mass/volume] in Serum or PlasmaLow6.4-8.9[facility] Medical CenterRBC Auto (Bld) [#/Vol]Ordered By: Obaydah Daromar on 51-46-6269UKJ (Bld) [#/Vol]Erythrocytes [#/volume] in Blood by Automated count3.90-5.60[facility] Serum or plasma albumin/globulin mass ratioOrdered By: Obaydah Daromar on 67-70-0634Mlegzxw/Globulin [Mass ratio]Serum or plasma albumin/globulin mass ratioCoshocton Regional Medical Centererum or plasma anion gap determination Ordered By: Obaydah Daromar on 95-47-6365Nueps gap [Moles/Vol]Serum or plasma anion gap determination6.0-15.0Coshocton Regional Medical Centerodium [Moles/volume] in Serum or PlasmaOrdered By: Obaydah Daromar on 18-25-5028Ryjvji [Moles/Vol]Sodium [Moles/volume] in Serum or Shupow207-084TghkbbarcSt. Mary'S Medical CenterUrea nitrogen [Mass/volume] in Serum or PlasmaOrdered By: Obaydah Daromar on 52-25-2555Bjie nitrogen [Mass/Vol]Urea nitrogen [Mass/volume] in Serum or Plasma12-27[facility] CenterAlbumin Levelon 08-12-2024 Albumin [Mass/Vol]3.5 g/dLNormal3.5-5.7The [facility] Physician GroupComment on above:Result Comment: PERFORMED BY:[address] [place], [place] [phone] MEDICAL DIRECTORMIKE LIU M.D.Performed By: #### SCAN CBC, ALB, BMP ####[address] [place] [address] USAAnisocytosis LM Ql (Bld) Ordered By: Marge Andino on 01-90-5910Vcfzjpwkyhef Ql (Bld)Anisocytosis [Presence] in Blood by Light microscopySt. Mary'S Medical CenterBasic Metabolic Panelon 29-03-7314Gocsw gap [Moles/Vol]11.6 mmol/LNormal6.0-15.0The [facility] Physician GroupComment on above:Performed By: #### SCAN CBC, ALB, BMP ####[address] [address] USACalcium [Mass/Vol]6.3 mg/dLOff scale low8.6-10.3The [facility] Physician GroupComment on above:Result Comment: Critical Result Called to and read back by: NOT FIRST TIME CRITICAL at: 08/12/2024 06:59:53 by:RGPerformed By: #### SCAN CBC, ALB, BMP ####[address] [address] [place] Chloride [Moles/Vol]107 mmol/TOzxotn72-658Ybb [facility] Physician GroupComment on above:Performed By: #### SCAN CBC, ALB, BMP ####[address] [address] USACO2 [Moles/Vol]25.1 mmol/LNormal 21.0-31.0The [facility] GroupComment on above:Performed By: #### SCAN CBC, ALB, BMP ####[address] [address] USACreatinine [Mass/Vol]1.79 mg/dLSignificant change up0.70-1.30The [facility] Physician GroupComment on above:Performed By: #### SCAN CBC, ALB, BMP ####[place] [address] [place] Creatinine Clr Calc Jrxcnwjd68.77NormalThe [facility] Physician GroupComment on above:Result Comment: PERFORMED BY:[address] [place], [place] [phone] MEDICAL DIRECTORMIKE LIU M.D.Performed By: #### SCAN CBC, ALB, BMP ####[place] [address] USAEstimated GFR43.111 mL/Min NormalThe [facility] Physician GroupComment on above:Performed By: #### SCAN CBC, ALB, BMP ####[place] [address] USAGlucose [Mass/Vol]91 mg/vOWercwn49-880Xmk [facility] Physician GroupComment on above:Result Comment: Random Glucose Reference Range is dependent on time and content of last meal. Glucose of more than 200 mg/dL in a nonstressed, ambulatory subject supports the diagnosis of Diabetes Mellitus. ADA recommended reference rangePerformed By: #### SCAN CBC, ALB, BMP ####[place] [address] USAPotassium [Moles/Vol]3.7 mmol/LNormal3.5-5.1The [facility] Physician GroupComment on above:Performed By: #### SCAN CBC, ALB, BMP ####[place] [phone] USASodium [Moles/Vol]140 mmol/OGyuhkv275-743Tbl [facility] Physician GroupComment on above:Performed By: #### SCAN CBC, ALB, BMP ####[place] [address] USAUrea nitrogen [Mass/Vol]20 mg/dLNormal7-25The [facility] Physician GroupComment on above:Performed By: #### SCAN CBC, ALB, BMP ####[facility] [place] [address] USABasophils Auto (Bld) [#/Vol]Ordered By: Marge Andino on 85-27-6215Cxxnajrhg (Bld) [#/Vol]Automated basophil count 0.0-0.2FMarion HospitalBasophils/100 WBC Auto (Bld)Ordered By: Marge Andino on 47-01-6734Rdxlomscv/100 WBC (Bld)Automated basophil %. [facility]S Medical CenterEosinophils Auto (Bld) [#/Vol]Ordered By: Marge Andino on 83-56-0346Nmnuafmudxd (Bld) [#/Vol]Automated eosinophil count 0.0-0.45St. [facility] Medical CenterEosinophils/100 WBC Auto (Bld)Ordered By: Marge Andino on 55-74-2167Nitpbhzffhm/100 WBC (Bld)Automated eosinophil % .[facility]S Medical CenterErythrocyte morphology finding [Identifier] in BloodOrdered By: Marge Andino on 06-56-3838KKU morphology finding Nom (Bld) RBC morphologySt. Mary'S Medical CenterGlucose Poct Glucometerson 97-51-6201Janpuik [Mass/Vol]168 mg/dLNormalThe [facility] Physician GroupComment on above:Result Comment: Random Glucose Reference Range is dependent on time and content of last meal. Glucose of more than 200 mg/dL in a nonstressed, ambulatory subject supports the diagnosis of Diabetes Mellitus.PERFORMED BY:[address] [place], [place] [phone] MEDICAL DIRECTORMIKE CABAN M.D. Performed By: #### GLULS ####Point of Care testing,Glucose [Mass/Vol]162 mg/dL NormalThe [facility] Physician GroupComment on above:Result Comment: Random Glucose Reference Range is dependent on time and content of last meal. Glucose of more than 200 mg/dL in a nonstressed, ambulatory subject supports the diagnosis of Diabetes Mellitus.PERFORMED BY:[address] [place] [phone] MEDICAL DIRECTORMIKE CABAN M.D.Performed By: #### GLULS ####Point of Care testing,Glucose [Mass/Vol]179 mg/dLNormHCA Florida Englewood Hospital Physician GroupComment on above:Result Comment: Random Glucose Reference Range is dependent on time and content of last meal. Glucose of more than 200 mg/dL in a nonstressed, ambulatory subject supports the diagnosis of Diabetes Mellitus.PERFORMED BY:[address] [place], [place] [phone] MEDICAL DIRECTORMIKE CABAN M.D. Performed By: #### GLULS ####Point of Care testing,Glucose [Mass/Vol]98 mg/dL NormalMayo Clinic Florida Physician GroupComment on above:Result Comment: Random Glucose Reference Range is dependent on time and content of last meal. Glucose of more than 200 mg/dL in a nonstressed, ambulatory subject supports the diagnosis of Diabetes Mellitus.PERFORMED BY:[address] [place], [place] [phone] MEDICAL DIRECTORMIKE CABAN M.D.Performed By: #### GLULS ####Point of Care testing,Hypochromia LM Ql (Bld)Ordered By: Marge Andino on 08-12-2024 Hypochromia Ql (Bld)Hypochromia [Presence] in Blood by Light microscopySt. Mary'S Medical CenterLymphocytes Auto (Bld) [#/Vol]Ordered By: Marge Andino on 70-27-7159Fgzyxeosdwd (Bld) [#/Vol]Lymphocytes [#/volume] in Blood by Automated count1.00-4.8St. [facility]S Medical CenterLymphocytes/100 WBC Auto (Bld)Ordered By: Marge Andino on 42-51-9096Ecadqpoeask/100 WBC (Bld) Lymphocytes/100 leukocytes in Blood by Automated count.[facility] Medical CenterMagnesiumon 37-90-1848Gblinmgin [Mass/Vol]2.9 mg/dLSignificant change up1.9-2.7The [facility] Physician GroupComment on above:Result Comment: PERFORMED BY:[facility] [place]ULDarrianMaryCHALIN[place], [place] [phone] MEDICAL DIRECTORMIKE CABAN M.D. Performed By: #### MG ####[facility]zbib[facility] [place] [address] USAMagnesium [Mass/volume] in Serum or PlasmaOrdered By: Maurice Francis on 04-18-8946Zghsmiogk [Mass/Vol]Magnesium [Mass/volume] in Serum or PlasmaSignificant change up1.9-2.7FMarion Hospital Comment on above:Delta: 0.5 on 08/11/24-5Microcytes LM Ql (Bld)Ordered By: Marge Andino on 49-59-6745Gjrxqczecz Ql (Bld)Microcytes [Presence] in Blood by Light microscopySt. Mary'S Medical CenterMonocytes Auto (Bld) [#/Vol] Ordered By: Marge Andino on 66-53-6085Mvmqpmuxc (Bld) [#/Vol]Automated blood monocyte count0.0-0.8St. [facility] Medical CenterMonocytes/100 WBC Auto (Bld)Ordered By: Marge Andino on 77-74-0944Nqzzgwcyh/100 WBC (Bld)Automated monocyte %.[facility]S Medical CenterNeutrophils Auto (Bld) [#/Vol] Ordered By: Marge Andino on 57-48-7717Isjdndggnlj (Bld) [#/Vol]Neutrophils [#/volume] in Blood by Automated countHigh1.8-7.7FMarion HospitalNeutrophils/100 WBC Auto (Bld)Ordered By: Marge Andino on 08-12-2024 Neutrophils/100 WBC (Bld)Automated neutrophil %.[facility] CenterNo Panel InformationOrdered By: Marge Andino on 42-73-4416COW Comment See commentSt. Mary'S Medical CenterComment on above:There is significant microcytosis which suggests the possibility of iron deficiency. Consider serumferritin and iron studies.See commentSt. Mary'S Medical CenterNucleated erythrocytes [Presence] in Blood by Automated countOrdered By: Marge Andino on 94-06-1972Msgzgracu RBC Auto Ql (Bld)Nucleated erythrocytes [Presence] in Blood by Automated count0-0.5FMarion Hospital Ovalocytes [Presence] in Blood by Light microscopyOrdered By: Marge Andino on 80-31-7113Cesftucizn LM Ql (Bld)Ovalocyte detectionSt. Mary'S Medical CenterPlatelet adequacy [Presence] in Blood by Light microscopyOrdered By: Marge Andino on 03-11-8324Vqvzetiis LM Ql (Bld)Platelet adequacy [Presence] in Blood by Light microscopyNoMarietta Osteopathic ClinicPlatelet morphology finding [Identifier] in BloodOrdered By: Marge Andino on 33-98-6470Kkltglzw morphology finding Nom (Bld)Platelet morphology finding [Identifier] in BloodNoMarietta Osteopathic ClinicPoikilocytosis [Presence] in Blood by Light microscopyOrdered By: Marge Andino on 08-12-2024 Poikilocytosis LM Ql (Bld)Poikilocytosis [Presence] in Blood by Light microscopy [facility] Medical Centercan and CBCon 22-09-8024Oxsqsjjsib Comments NormalThe [facility] Physician GroupComment on above:Result Comment: There is significant microcytosis which suggests the possibility of iron deficiency. Consider serum ferritin and iron studies.PERFORMED BY:[address] [place], [place] [phone] MEDICAL DIRECTORMIKE CABAN M.D.Performed By: #### SCAN CBC, ALB, BMP ####[facility] [address] [place] [address] [place] Anisocytosis Ql (Bld)MarkedNormalThe [facility] Physician GroupComment on above: Performed By: #### SCAN CBC, ALB, BMP ####[facility] [address] [place] [address] USABasophils (Bld) [#/Vol]0.1 10*3/uLNormal 0.0-0.2The [facility] Physician GroupComment on above:Performed By: #### SCAN CBC, ALB, BMP ####[place] [address] USABasophils/100 WBC (Bld)0.8 %Normal.The [facility] Physician GroupComment on above:Performed By: #### SCAN CBC, ALB, BMP ####[place] [address] USAEosinophils (Bld) [#/Vol]0.3 10*3/uL Normal0.0-0.45The [facility] Hospital Physician GroupComment on above:Performed By: #### SCAN CBC, ALB, BMP ####[place] [address] USAEosinophils/100 WBC (Bld)3.1 %Normal.The [facility] Comment on above:Performed By: #### SCAN CBC, ALB, BMP ####[place] [address] USAErythrocyte distribution width (RBC) [Ratio]20.0 %High12.0-14.8The [facility] Hospital Physician GroupComment on above: Performed By: #### SCAN CBC, ALB, BMP ####[place] [address] USAHematocrit (Bld) [Volume fraction]29.5 %Low 38.8-50.0The [facility] Physician GroupComment on above:Performed By: #### SCAN CBC, ALB, BMP ####[place] [address] USAHemoglobin (Bld) [Mass/Vol]9.5 g/dLLow13.0-17.0The [facility] Physician GroupComment on above:Performed By: #### SCAN CBC, ALB, BMP ####[place] [address] USAHypochromasiaSlight NormalThe [facility] Physician GroupComment on above:Performed By: #### SCAN CBC, ALB, BMP ####[place] [address] USALymphocytes (Bld) [#/Vol]1.0 10*3/uLNormal1.00-4.8The [facility] Physician GroupComment on above:Performed By: #### SCAN CBC, ALB, BMP ####[place] [phone] USALymphocytes/100 WBC (Bld)9.6 %Normal.The [facility] Physician GroupComment on above:Performed By: #### SCAN CBC, ALB, BMP ####[phone] [facility] [place] [place]H (RBC) [Entitic mass]21.9 pgLow27.5-35.2The [facility] Physician GroupComment on above:Performed By: #### SCAN CBC, ALB, BMP ####[phone] [facility] [place]V (RBC) [Entitic vol]68.2 fLLow83.5-101The [facility] Physician GroupComment on above:Performed By: #### SCAN CBC, ALB, BMP ####[place] [phone] USAMean Corpuscular HGB Conc32.1 g/dLLow 32.5-35.6The [facility] Physician GroupComment on above:Performed By: #### SCAN CBC, ALB, BMP ####[phone] USAMicrocytosisModerateNormalThe [facility] Physician GroupComment on above:Performed By: #### SCAN CBC, ALB, BMP ####[place] [phone] USAMonocytes (Bld) [#/Vol]0.8 10*3/uL Normal0.0-0.8The [facility] Physician GroupComment on above:Performed By: #### SCAN CBC, ALB, BMP ####[place] [address] USAMonocytes/100 WBC (Bld)8.3 %Normal.The [facility] Comment on above:Performed By: #### SCAN CBC, ALB, BMP ####[address] [place] [address] USANeutrophils (Bld) [#/Vol]8.0 10*3/uLHigh1.8-7.7The [facility] Physician GroupComment on above:Performed By: #### SCAN CBC, ALB, BMP ####[address] [address] USANeutrophils/100 WBC (Bld)78.2 %Normal.The [facility] Physician GroupComment on above:Performed By: #### SCAN CBC, ALB, BMP ####[address] [address] USANRBC% 0.1 /100{WBC}Normal0-0.5The [facility] Physician GroupComment on above:Performed By: #### SCAN CBC, ALB, BMP ####[address] [address] USAOvalocytesSlightNormHCA Florida Englewood Hospital Physician Group Comment on above:Performed By: #### SCAN CBC, ALB, BMP ####[address] [address] USAPlatelet EstimateNormalNormal NormalThe [facility] Physician GroupComment on above:Performed By: #### SCAN CBC, ALB, BMP ####[address] [address] USAPlatelet mean volume (Bld) [Entitic vol]9.4 fLNormal6.6-10.1The [facility] Physician GroupComment on above:Performed By: #### SCAN CBC, ALB, BMP ####[address] [address] [place] Platelet MorphologyNormalNormalNormHCA Florida Englewood Hospital Physician GroupComment on above:Performed By: #### SCAN CBC, ALB, BMP ####[address] [address] USAPlatelets (Bld) [#/Vol]162 10*3/uL Ysfjyi101-381Meq [facility] Physician GroupComment on above:Performed By: #### SCAN CBC, ALB, BMP ####[facility] [address] [place] [address] USAPoikilocytosisSlightNormalThe [facility] Physician GroupComment on above:Performed By: #### SCAN CBC, ALB, BMP ####[facility] [address] [place] [address] USARBC (Bld) [#/Vol]4.32 10*6/uLNormal 3.90-5.60The [facility] Physician GroupComment on above:Performed By: #### SCAN CBC, ALB, BMP ####[facility] [place] [address] USAWBC (Bld) [#/Vol]10.2 10*3/uLNormal4.1-10.5The [facility] Physician GroupComment on above:Performed By: #### SCAN CBC, ALB, BMP ####[address] [place] [address] USAWBC Auto (Bld) [#/Vol]Ordered By: Marge Andino on 46-60-2183SIT (Bld) [#/Vol]Leukocytes [#/volume] in Blood by Automated count4.1-10.5FMarion Hospital Alanine aminotransferase [Enzymatic activity/volume] in Serum or PlasmaOrdered By: Francisco Duncan on 47-68-7242AZP [Catalytic activity/Vol]Alanine aminotransferase [Enzymatic activity/volume] in Serum or Plasma7-52[facility] CenterAlbumin [Mass/volume] in Serum or Plasma by Bromocresol green (BCG) dye binding methoOrdered By: Francisco Duncan on 38-59-1710Uoybrbi BCG dye [Mass/Vol]Albumin [Mass/volume] in Serum or Plasma by Bromocresol green (BCG) dye binding metho3.5-5.7FMarion HospitalAlkaline phosphatase [Enzymatic activity/volume] in Serum or PlasmaOrdered By: Francisco Duncan on 52-57-0553DCA [Catalytic activity/Vol]Alkaline phosphatase [Enzymatic activity/volume] in Serum or RujkelFzyk47-822PyrueccnfSt. Mary'S Medical Center Anisocytosis LM Ql (Bld)Ordered By: Francisco Duncan on 93-98-1084Jojziwxkcocn Ql (Bld)Anisocytosis [Presence] in Blood by Light microscopySt. Mary'S Medical CenterAppearance of UrineOrdered By: Francisco Duncan on 08-11-2024 Appearance (U)Urine appearanceCleBrecksville VA / Crille HospitalAspartate aminotransferase [Enzymatic activity/volume] in Serum or PlasmaOrdered By: Francisco Duncan on 84-43-3436ILK [Catalytic activity/Vol]Aspartate aminotransferase [Enzymatic activity/volume] in Serum or BszhesVhc25-79LatxjpxaxSt. Mary'S Medical CenterBand form neutrophils/100 WBC Manual cnt (Bld)Ordered By: Francisco Duncan on 98-03-9521Eqgk form neutrophils/100 WBC (Bld)Peripheral white blood cell differential % bands, microscopic exam0-5FMarion HospitalBasophils Auto (Bld) [#/Vol]Ordered By: Francisco Duncan on 08-11-2024 Basophils (Bld) [#/Vol]Automated basophil countSt. Mary'S Medical Center Basophils/100 WBC Auto (Bld)Ordered By: Francisco Duncan on 87-93-3652Npbdopwah/100 WBC (Bld)Automated basophil %[facility] CenterBasophils/100 WBC Manual cnt (Bld)Ordered By: Francisco Duncan on 81-92-6089Hlgitkhpj/100 WBC (Bld) Basophils/100 leukocytes in Blood by Manual count02FMarion HospitalBilirubin Test strip Ql (U)Ordered By: Francisco Duncan on 08-11-2024 Bilirubin Ql (U)Bilirubin.total [Presence] in Urine by Test stripNegative St. [facility]S Medical CenterBilirubin.total [Mass/volume] in Serum or PlasmaOrdered By: Francisco Duncan on 75-76-8990Xnzxpgeew [Mass/Vol]Bilirubin.total [Mass/volume] in Serum or Plasma0.3-1.0[facility] CenterBurr cells [Presence] in Blood by Light microscopyOrdered By: Francisco Duncan on 52-77-3360Tgoz cells LM Ql (Bld)Leigh Ann cells [Presence] in Blood by Light microscopySt. Mary'S Medical CenterCT angio neckon 34-99-7365LZ angio neckNormHCA Florida Englewood Hospital Physician GroupCalcium [Mass/volume] in Serum or Plasma Ordered By: Francisco Duncan on 24-77-0893Yfiiyaf [Mass/Vol]Calcium [Mass/volume] in Serum or PlasmaCritically low8.6-10.3FMarion HospitalComment on above:Critical Result Called to and read back by: MONCHO FINK at: 08/11/2024 04:56:06 by:DHCarbon dioxide, total [Moles/volume] in Serum or Plasma Ordered By: Francisco Duncan on 82-00-7409IR5 [Moles/Vol]Carbon dioxide, total [Moles/volume] in Serum or Dbvzfs04.0-31.0[facility] Chloride [Moles/volume] in Serum or PlasmaOrdered By: Francisco Duncan on 19-47-1648Ikgpgfwj [Moles/Vol]Chloride [Moles/volume] in Serum or Yzqaci01-393 [facility] Medical CenterColor Auto (U)Ordered By: Francisco Duncan on 43-03-1772Zcoex (U)Color of Urine by AutoYellowSt. Mary'S Medical Center Comprehensive Metabolic Panelon 47-23-3045Wfkqqio [Mass/Vol]4.2 g/dLNormal 3.5-5.7The [facility] Physician GroupComment on above:Performed By: #### DIFF CBC, CK, PT, PTT, CMP, HS TROP ####[facility] [place] [address] USAAlbumin/Globulin [Mass ratio]1.6 {ratio}NormalThe Physicians Care Surgical HospitalComment on above:Performed By: #### DIFF CBC, CK, PT, PTT, CMP, HS TROP ####[facility] [place] [address] USAALP [Catalytic activity/Vol]105 U/SBbin62-181Ksy Physicians Care Surgical HospitalComment on above:Performed By: #### DIFF CBC, CK, PT, PTT, CMP, HS TROP ####[facility] [place] [address] USAALT [Catalytic activity/Vol]11 U/LNormal7-52The Physicians Care Surgical HospitalComment on above:Performed By: #### DIFF CBC, CK, PT, PTT, CMP, HS TROP ####[facility] [place] [address] USAAnion gap [Moles/Vol] 16.0 mmol/LHigh6.0-15.0The [facility] Physician GroupComment on above:Performed By: #### DIFF CBC, CK, PT, PTT, CMP, HS TROP ####[place] [address] USAAST [Catalytic activity/Vol]12 U/LLow 13-39The [facility] Physician GroupComment on above:Performed By: #### DIFF CBC, CK, PT, PTT, CMP, HS TROP ####[place] [address] USABilirubin [Mass/Vol]0.4 mg/dLNormal0.3-1.0The [facility] Physician GroupComment on above:Performed By: #### DIFF CBC, CK, PT, PTT, CMP, HS TROP ####[place] [address] USACalcium [Mass/Vol]6.1 mg/dLOff scale low8.6-10.3The [facility] Physician GroupComment on above:Result Comment: Critical Result Called to and read back by: MONCHO FINK at: 08/11/2024 04:56:06by:DHPerformed By: #### DIFF CBC, CK, PT, PTT, CMP, HS TROP ####[place] [address] USAChloride [Moles/Vol]100 mmol/KTexgwe17-313Vud [facility] Physician GroupComment on above:Performed By: #### DIFF CBC, CK, PT, PTT, CMP, HS TROP ####[place] [id number] USACO2 [Moles/Vol]27.1 mmol/OAigyqr86.0-31.0The [facility] Comment on above:Performed By: #### DIFF CBC, CK, PT, PTT, CMP, HS TROP ####[place] [address] [place] Creatinine [Mass/Vol]2.62 mg/dLHigh0.70-1.30The [facility] Physician GroupComment on above:Performed By: #### DIFF CBC, CK, PT, PTT, CMP, HS TROP ####[address] [place] [address] USACreatinine Clr Calc Iurtxsqs75.32NoPsychiatric hospital Physician GroupComment on above:Result Comment: PERFORMED BY:[address] [place], [place] [phone] MEDICAL DIRECTORMIKE CABAN M.D. Performed By: #### DIFF CBC, CK, PT, PTT, CMP, HS TROP ####[address] [place] [address] USAEstimated GFR27.293 mL/Min NormalThe [facility] Physician GroupComment on above:Performed By: #### DIFF CBC, CK, PT, PTT, CMP, HS TROP ####[address] [place] [address] USAGlobulin (S) [Mass/Vol]2.7 g/dLNoPsychiatric hospital Physician GroupComment on above:Performed By: #### DIFF CBC, CK, PT, PTT, CMP, HS TROP ####[place] [id number] [facility] Glucose [Mass/Vol]102 mg/sXBafm66-616Rld [facility] Physician GroupComment on above:Result Comment: Random Glucose Reference Range is dependent on time and content of last meal. Glucose of more than 200 mg/dL in a nonstressed, ambulatory subject supports the diagnosis of Diabetes Mellitus. ADA recommended reference rangePerformed By: #### DIFF CBC, CK, PT, PTT, CMP, HS TROP ####[address] [address] [facility] Potassium [Moles/Vol]3.1 mmol/LLow3.5-5.1The [facility] Physician GroupComment on above:Performed By: #### DIFF CBC, CK, PT, PTT, CMP, HS TROP ####[address] [address] USAProtein [Mass/Vol]6.9 g/dLNormal6.4-8.9The [facility] Physician GroupComment on above:Performed By: #### DIFF CBC, CK, PT, PTT, CMP, HS TROP ####[place] [address] USASodium [Moles/Vol]140 mmol/XSozvly127-944DvlMerit Health River OaksComment on above:Performed By: #### DIFF CBC, CK, PT, PTT, CMP, HS TROP ####[place] [id number] USAUrea nitrogen [Mass/Vol]26 mg/dLHigh7-25The [facility] Physician [facility] Comment on above:Performed By: #### DIFF CBC, CK, PT, PTT, CMP, HS TROP ####[place] [address] USACreatine Kinaseon 66-92-9904IE [Catalytic activity/Vol]305 U/NQzfe50-992Lhe [place] Physician [facility] HospitalComment on above:Performed By: #### DIFF CBC, CK, PT, PTT, CMP, HS TROP ####[address] Creatine kinase [Enzymatic activity/volume] in Serum or PlasmaOrdered By: Francisco Duncan on 05-38-0960QN [Catalytic activity/Vol]Creatine kinase [Enzymatic activity/volume] in Serum or PtdhusYoxr94-401VjyjsyjdwSt. Mary'S Medical Center Creatinine [Mass/volume] in Serum or PlasmaOrdered By: Francisco Duncan on 77-78-2872Wbrrlfwhde [Mass/Vol]Creatinine [Mass/volume] in Serum or PlasmaHigh 0.70-1.30[facility]. [facility] Medical CenterDiff and CBCon 64-59-0314Gdvckdxpvozh Ql (Bld)MarkedNoACMC Healthcare System GlenbeighComment on above:Performed By: #### DIFF CBC, CK, PT, PTT, CMP, HS TROP ####[place] [id number] USABand form neutrophils/100 WBC (Bld)1 %Normal0-5 [facility] Physician [facility] HospitalComment on above:Performed By: #### DIFF CBC, CK, PT, PTT, CMP, HS TROP ####[place] [phone] USABasophils/100 WBC (Bld)1 %Normal0-2The [facility] Physician GroupComment on above:Performed By: #### DIFF CBC, CK, PT, PTT, CMP, HS TROP ####[place] [address] [place] Crenated RBCSlightNormalThe [facility] Physician GroupComment on above:Performed By: #### DIFF CBC, CK, PT, PTT, CMP, HS TROP ####[place] [id number] USAEosinophils/100 WBC (Bld)4 %High1-3The [facility] Physician GroupComment on above:Performed By: #### DIFF CBC, CK, PT, PTT, CMP, HS TROP ####[place] [address] USAErythrocyte distribution width (RBC) [Ratio]20.1 %High12.0-14.8The [facility] Physician GroupComment on above:Performed By: #### DIFF CBC, CK, PT, PTT, CMP, HS TROP ####[place] [address] USAHematocrit (Bld) [Volume fraction]35.8 %Low38.8-50.0The [facility] Physician GroupComment on above:Performed By: #### DIFF CBC, CK, PT, PTT, CMP, HS TROP ####[place] [phone] [facility] Hemoglobin (Bld) [Mass/Vol]11.6 g/dLLow13.0-17.0[facility] Comment on above:Performed By: #### DIFF CBC, CK, PT, PTT, CMP, HS TROP ####[place] [phone] [place] Lymphocytes/100 WBC (Bld)30 %Xtctra74-68Uya [facility] Physician GroupComment on above:Performed By: #### DIFF CBC, CK, PT, PTT, CMP, HS TROP ####[place] [phone] [facility] (RBC) [Entitic mass]21.8 pgLow27.5-35.2The [facility] Physician GroupComment on above:Performed By: #### DIFF CBC, CK, PT, PTT, CMP, HS TROP ####[place] [phone] [facility] (RBC) [Entitic vol]67.4 fLLow 83.5-101The [facility] Physician GroupComment on above:Performed By: #### DIFF CBC, CK, PT, PTT, CMP, HS TROP ####[address]Mean Corpuscular HGB Conc32.3 g/dLLow32.5-35.6The [facility] Physician GroupComment on above:Performed By: #### DIFF CBC, CK, PT, PTT, CMP, HS TROP ####[place] [phone] USAMicrocytosisModeratePalm Beach Gardens Medical Center Physician [facility] HospitalComment on above:Performed By: #### DIFF CBC, CK, PT, PTT, CMP, HS TROP ####[place] [phone] USAMonocytes/100 WBC (Bld)17.90 %Normal0.00-20.00The [facility] Physician GroupComment on above: Performed By: #### DIFF CBC, CK, PT, PTT, CMP, HS TROP ####[place] [phone] USAMonocytes/100 WBC (Bld)5 % Normal2-11The [facility] Physician GroupComment on above:Performed By: #### DIFF CBC, CK, PT, PTT, CMP, HS TROP ####[place] [phone] USAOvalocytesSlightPalm Beach Gardens Medical Center Physician Group Comment on above:Performed By: #### DIFF CBC, CK, PT, PTT, CMP, HS TROP ####[address] [address] USAPlatelet EstimateNormalNormalPalm Beach Gardens Medical Center Physician GroupComment on above: Performed By: #### DIFF CBC, CK, PT, PTT, CMP, HS TROP ####[address] [address] USAPlatelet mean volume (Bld) [Entitic vol]9.1 fLNormal6.6-10.1The [facility] Physician GroupComment on above: Result Comment: PERFORMED BY:[place] [address] [place], [place] [phone] MEDICAL DIRECTORMIKE LIU M.D.Performed By: #### DIFF CBC, CK, PT, PTT, CMP, HS TROP ####[address] [address] USAPlatelet MorphologyNormalNormalPalm Beach Gardens Medical Center Physician GroupComment on above:Result Comment: PERFORMED BY:[address] LINMaryCHALINO, [place] [phone] MEDICAL DIRECTORMIKE CABAN M.D. Performed By: #### DIFF CBC, CK, PT, PTT, CMP, HS TROP ####[address] [address] USAPlatelets (Bld) [#/Vol]209 10*3/wRFaslqh347-407Weh [facility] Physician GroupComment on above:Performed By: #### DIFF CBC, CK, PT, PTT, CMP, HS TROP ####[address] [address] USAPoikilocytosisSFirstHealth Physician GroupComment on above:Performed By: #### DIFF CBC, CK, PT, PTT, CMP, HS TROP ####[address] [address] [place] PolychromasiaSFirstHealth Physician GroupComment on above:Performed By: #### DIFF CBC, CK, PT, PTT, CMP, HS TROP ####[place] [address] [place] [phone] USARBC (Bld) [#/Vol]5.32 10*6/uLNormal 3.90-5.60The [facility] Physician GroupComment on above:Performed By: #### DIFF CBC, CK, PT, PTT, CMP, HS TROP ####[place] [phone] USASegmented neutrophils/100 WBC (Bld)60 %Kbfuql22-93 The [facility] Physician GroupComment on above:Performed By: #### DIFF CBC, CK, PT, PTT, CMP, HS TROP ####[place] [phone] USAWBC (Bld) [#/Vol]10.7 10*3/uLHigh4.1-10.5The [facility] Physician GroupComment on above:Performed By: #### DIFF CBC, CK, PT, PTT, CMP, HS TROP ####[address] [address] USAECG 12 lead ECGon 36-91-4422OXL 12 lead ECGNormalThe [facility] Physician [facility] HospitalEosinophils Auto (Bld) [#/Vol]Ordered By: Francisco Duncan on 08-99-7982Crmxaurwlbt (Bld) [#/Vol]Automated eosinophil countSt. Mary'S Medical CenterEosinophils/100 WBC Auto (Bld)Ordered By: Francisco Duncan on 28-94-6882Zojplezzjax/100 WBC (Bld)Automated eosinophil %[facility]S Medical CenterEosinophils/100 WBC Manual cnt (Bld)Ordered By: Francisco Duncan on 83-81-5274Widozhliegd/100 WBC (Bld)Eosinophils/100 leukocytes in Blood by Manual countHigh1-3FMarion HospitalErythrocyte distribution width Auto (RBC) [Ratio]Ordered By: Francisco Duncan on 78-95-3094Dzxaufaqxby distribution width (RBC) [Ratio]Erythrocyte distribution width [Ratio] by Automated xpnqlOgno82.0-14.8St. [facility]S Medical CenterErythrocyte morphology finding [Identifier] in BloodOrdered By: Francisco Duncan on 08-11-2024 RBC morphology finding Nom (Bld)RBC morphologySt. Mary'S Medical Center Ferritinon 10-77-4283Ahjlsapl [Mass/Vol]5.3 ng/mLLow23.9-336.2The [facility] Physician GroupComment on above:Order Comment: Comment addResult Comment: PERFORMED BY:[place] [address] [place] [place] [phone] MEDICAL DIRECTORMIKE CABAN M.D. Performed By: #### FE and TIBC, LILA ####[facility] [address] [place], [place] USAFerritin [Mass/volume] in Serum or PlasmaOrdered By: Marge Andino on 68-37-0575Gprhttzs [Mass/Vol]Ferritin [Mass/volume] in Serum or QchngeYox37.9-336.2FMarion HospitalFolate [Mass/volume] in Serum or PlasmaOrdered By: Marge Andino on 77-87-2596Bbnrei [Mass/Vol]Folate [Mass/volume] in Serum or Plasma>5.9St. [facility] Medical CenterComment on above:Folate reference range: >5.9 ng/mlThe WHO technical consultation on folate and vitamin o84dgfvfkyasdjx has determined that folate concentrations lessthan 4 ng/ml are considered deficient.Globulin Calc (S) [Mass/Vol]Ordered By: Francisco Duncan on 99-97-9846Pylhcrsj (S) [Mass/Vol]Serum globulin measurement by calculation (mass/volume)[facility]S Medical CenterGlucose Poct Glucometerson 36-85-7222Ognfwmm6Urs9: Cleaned MeterNormHCA Florida Englewood Hospital Physician GroupComment on above:Result Comment: PERFORMED BY:[place] [address] [place], [place] [phone] MEDICAL FRANSISCO CABAN M.D.Performed By: #### GLULS ####Point of Care testing,Glucose [Mass/Vol]241 mg/dLNoPsychiatric hospital Physician GroupComment on above:Result Comment: Random Glucose Reference Range is dependent on time and content of last meal. Glucose of more than 200 mg/dL in a nonstressed, ambulatory subject supports the diagnosis of Diabetes Mellitus.Performed By: #### GLULS ####Point of Care testing,Glucose [Mass/Vol]244 mg/dLPalm Beach Gardens Medical Center Physician GroupComment on above:Result Comment: Random Glucose Reference Range is dependent on time and content of last meal. Glucose of more than 200 mg/dL in a nonstressed, ambulatory subject supports the diagnosis of Diabetes Mellitus.PERFORMED BY:[place] [address] [place], [place] [phone] MEDICAL DIRECTORMIKE LIU M.D.Performed By: #### GLULS ####Point of Care testing,Lsjzbap6Lms5: Cleaned MeterNoPsychiatric hospital Physician GroupComment on above:Result Comment: PERFORMED BY:[place] [address] [place], [place] [phone] MEDICAL DIRECTORMIKE CABAN M.D. Performed By: #### GLULS ####Point of Care testing,Glucose [Mass/Vol]89 mg/dL NormalMayo Clinic Florida Physician GroupComment on above:Result Comment: Random Glucose Reference Range is dependent on time and content of last meal. Glucose of more than 200 mg/dL in a nonstressed, ambulatory subject supports the diagnosis of Diabetes Mellitus.Performed By: #### GLULS ####Point of Care testing,Glucose [Mass/Vol]176 mg/dLPalm Beach Gardens Medical Center Physician GroupComment on above:Result Comment: Random Glucose Reference Range is dependent on time and content of last meal. Glucose of more than 200 mg/dL in a nonstressed, ambulatory subject supports the diagnosis of Diabetes Mellitus.PERFORMED BY:[place] [address] [place], [place] [phone] MEDICAL DIRECTORMIKE CABAN M.D. Performed By: #### GLULS ####Point of Care testing,Glucose [Mass/volume] in Serum or PlasmaOrdered By: Francisco Duncan on 76-59-3384Gcewoth [Mass/Vol]Glucose [Mass/volume] in Serum or CiwdedEtgs77-428DkdcbeakzSt. Mary'S Medical Center Comment on above:ADA recommended reference rangeRandom Glucose Reference Range is dependent on time and content of last meal. Glucose of more than 200 mg/dL in a nonstressed, ambulatory subject supports the diagnosisof Diabetes Mellitus. Glucose [Mass/volume] in Urine by Test stripOrdered By: Francisco Duncan on 48-69-0141Qgktxrn Test strip (U) [Mass/Vol]Glucose [Mass/volume] in Urine by Test stripHighNormalSt. Mary'S Medical CenterHematocrit Auto (Bld) [Volume fraction]Ordered By: Francisco Duncan on 71-38-2089Szfixaahrx (Bld) [Volume fraction]Hematocrit [Volume Fraction] of Blood by Automated udsjcYqo60.8-50.0 [facility] Medical CenterHemoglobin Test strip Ql (U)Ordered By: Francisco Duncan on 96-21-5720Vigbhitgxe Ql (U)Hemoglobin [Presence] in Urine by Test stripNegativeSt. Mary'S Medical CenterHemoglobin [Mass/volume] in Blood Ordered By: Francisco Duncan on 90-11-0574Uprxafkaxv (Bld) [Mass/Vol]Hemoglobin [Mass/volume] in LwrpwGak68.0-17.0St. [facility] Medical CenterINR in Platelet poor plasma by Coagulation assayOrdered By: Francisco Duncan on 08-11-2024 INR Coag (PPP) [Relative time]INR in Platelet poor plasma by Coagulation assay St[facility] Medical CenterComment on above:INR Therapeutic Range A) Pre- and [...] Serum or PlasmaOrdered By: Marge Andino on 05-03-5438Kfbv [Mass/Vol]Iron [Mass/volume] in Serum or AkgyjpCod29-754XzetdemfiSt. Mary'S Medical CenterIron and TIBC Profileon 08-11-2024% Iron Saturation7.0 %Nii03-86Vjp [facility] Comment on above:Order Comment: Comment addPerformed By: #### FE and TIBC, LILA ####[address] USAIron [Mass/Vol]29 ug/aEHeg10-744Cqe [facility] Physician GroupComment on above:Order Comment: Comment addPerformed By: #### FE and TIBC, LILA ####[address] USATotal Iron Binding Sjqktmir413 ug/uYRpehif033-449Bri [facility] Physician [facility] HospitalComment on above:Order Comment: Comment addPerformed By: #### FE and TIBC, LILA ####[address] AC[address] USATransferrin [Mass/Vol]296 mg/dLNormal 203-362The [facility] Physician [facility] HospitalComment on above:Order Comment: Comment add Performed By: #### FE and TIBC, LILA ####[address] VO[address] USAKetones Test strip Ql (U)Ordered By: Francisco Duncan on 53-35-9721Moizvqt Ql (U)Ketones [Presence] in Urine by Test stripNegative [facility]. [facility]S Medical CenterLeukocyte esterase [Presence] in Urine by Test stripOrdered By: Francisco Duncan on 78-85-3994Ttfmwvrpe esterase Test strip Ql (U) Leukocyte esterase [Presence] in Urine by Test stripNegativeSt. Mary'S Medical CenterLeukocytes [#/volume] corrected for nucleated erythrocytes in Blood by Automated counOrdered By: Francisco Duncan on 42-39-6562YLG corrected for nucl RBC Auto (Bld) [#/Vol]Leukocytes [#/volume] corrected for nucleated erythrocytes in Blood by Automated counHigh4.1-10.5FMarion HospitalLymphocytes Auto (Bld) [#/Vol]Ordered By: Francisco Duncan on 08-11-2024 Lymphocytes (Bld) [#/Vol]Lymphocytes [#/volume] in Blood by Automated count [facility] Medical CenterLymphocytes/100 WBC Auto (Bld)Ordered By: Francisco Duncan on 28-53-7820Ttnbxkqbdwt/100 WBC (Bld)Lymphocytes/100 leukocytes in Blood by Automated countSt. Mary'S Medical CenterLymphocytes/100 WBC Manual cnt (Bld)Ordered By: Francisco Duncan on 38-22-1657Xzzqguffdfq/100 WBC (Bld) Lymphocytes/100 leukocytes in Blood by Manual acgra40-02JwwjcqmguMercy Health St. Charles HospitalH Auto (RBC) [Entitic mass]Ordered By: Francisco Duncan on 88-96-8339ICT (RBC) [Entitic mass]MCH [Entitic mass] by Automated countLow 27.5-35.2FSt. Rita's HospitalHC Auto (RBC) [Mass/Vol]Ordered By: Francisco Duncan on 32-88-9445TXHZ (RBC) [Mass/Vol]MCHC [Mass/volume] by Automated gcltcVmx84.5-35.6FSt. Rita's HospitalV Auto (RBC) [Entitic vol] Ordered By: Francisco Duncan on 86-78-2898EIB (RBC) [Entitic vol]MCV [Entitic volume] by Automated sazscLct97.5-101St. [facility]S Medical CenterMagnesium on 68-60-9568Ijxophsfk [Mass/Vol]0.5 mg/dLOff scale low1.9-2.7The [facility] Physician GroupComment on above:Order Comment: Comment addResult Comment: Critical Result S_MG: Called to and read back by: MONCHO FINK at: 08/11/2024 06:13:29 by:RANDOLPHPerformed By: #### TSH3, MG, JGTG38TFN, FSSK02JC ####[facility] [address] [place] [address] USAMagnesium [Mass/volume] in Serum or PlasmaOrdered By: Marge Andino on 08-11-2024 Magnesium [Mass/Vol]Magnesium [Mass/volume] in Serum or PlasmaCritically low 1.9-2.7FMarion HospitalComment on above:Critical Result S_MG: Called to and read back by: MONCHO FINK at: 08/11/2024 06:13:29 by:RANDOLPH Microcytes LM Ql (Bld)Ordered By: Francisco Duncan on 99-19-4393Tmdrtnimbu Ql (Bld) Microcytes [Presence] in Blood by Light microscopySt. Mary'S Medical CenterMonocyte distribution width [Entitic volume] in Blood by AutomatedOrdered By: Francisco Duncan on 06-17-1083Wskwjukb distribution width Auto (Bld) [Entitic vol]Monocyte distribution width [Entitic volume] in Blood by Automated0.00-20.00 [facility] Medical CenterMonocytes Auto (Bld) [#/Vol]Ordered By: Francisco Duncan on 70-03-9596Qutlrsfle (Bld) [#/Vol]Automated blood monocyte count [facility] Medical CenterMonocytes/100 WBC Auto (Bld)Ordered By: Francisco Duncan on 69-79-1231Kpfwojmdv/100 WBC (Bld)Automated monocyte %[facility] Medical CenterMonocytes/100 WBC Manual cnt (Bld)Ordered By: Francisco Duncan on 12-08-9701Kuyvxoglg/100 WBC (Bld)Monocytes/100 leukocytes in Blood by Manual count2-11St. [facility]'S Medical CenterNeutrophils Auto (Bld) [#/Vol] Ordered By: Francisco Duncan on 57-76-7391Kksvfqkdsuc (Bld) [#/Vol]Neutrophils [#/volume] in Blood by Automated countSt. Mary'S Medical Center Neutrophils/100 WBC Auto (Bld)Ordered By: Francisco Duncan on 08-11-2024 Neutrophils/100 WBC (Bld)Automated neutrophil %[facility] Nitrite Test strip Ql (U)Ordered By: Francisco Duncan on 94-03-3766Uewpwre Ql (U) Nitrite [Presence] in Urine by Test stripNegativeSt. Mary'S Medical CenterNo Panel InformationOrdered By: Kevon Viera on 51-83-7592Qylglcn Glucose CommentGlu2: cleaned [facility] HospitalGlu2: cleaned [facility] HospitalNo Panel InformationOrdered By: Francisco Duncan on 82-75-5730Jyrfdekad GFR (CKD-EPI)27.293 mL/MinSt. Mary'S Medical CenterPharmacy Creatinine Clearance (Chem33.32St. [facility]S Medical CenterNucleated erythrocytes [Presence] in Blood by Automated countOrdered By: Francisco Duncan on 02-24-1386Qwbnkzxxd RBC Auto Ql (Bld)Nucleated erythrocytes [Presence] in Blood by Automated countSt. Mary'S Medical Center Ovalocytes [Presence] in Blood by Light microscopyOrdered By: Francisco Duncan on 32-37-2900Xpfmzthvnh LM Ql (Bld)Ovalocyte detectionSt. Mary'S Medical CenterParathyrin.intact [Mass/volume] in Serum or PlasmaOrdered By: Francisco Duncan on 99-95-3815Xrfhrifjvv.intact [Mass/Vol]Parathyrin.intact [Mass/volume] in Serum or Mltehh52-61RtatxwdxvSt. Mary'S Medical CenterParathyroid Hormone Intacton 21-87-6967Itgjcufovsp Hormone Jdrkmp39.3 pg/pSFurucd56-49Zau [facility] Physician GroupComment on above:Result Comment: PERFORMED BY:[place] [address] [place], [place] [phone] MEDICAL DIRECTORMIKE CABAN M.D.Performed By: #### PTH, PHOS ####[place] [address] [place] [address] USAPartial Thromboplastin Timeon 98-43-2520lRCX Coag (Bld) [Time]30.9 oTwzhsa31.1-36.5The [facility] Physician GroupComment on above:Result Comment: A hematocrit value greater than 55% may lead to inaccurate results in coagulation testing. Patients having hematocrit values >55% require a special collection tube for coagulation studies. Please contact the laboratory at [phone] for redraw instructions.PERFORMED BY:[place] [address] [place], [place] [phone] MEDICAL DIRECTORMIKE LIU M.D.Performed By: #### DIFF CBC, CK, PT, PTT, CMP, HS TROP ####[address] [address] [facility] Phosphate [Mass/volume] in Serum or PlasmaOrdered By: Francisco Duncan on 30-89-4280Rbiyzjujd [Mass/Vol]Phosphate [Mass/volume] in Serum or PlasmaHigh 2.5-4.5FMarion HospitalPhosphoruson 04-77-2596Jvpjlgqeb [Mass/Vol]4.8 mg/dLHigh2.5-4.5The [facility] Physician GroupComment on above: Result Comment: PERFORMED BY:[facility] [place], [place] [phone] MEDICAL DIRECTORMIKE LIU M.D.Performed By: #### PTH, PHOS ####[facility] [address] [place] [address] USAPlatelet adequacy [Presence] in Blood by Light microscopyOrdered By: Francisco Duncan on 45-52-3543Opeqlpjhv LM Ql (Bld) Platelet adequacy [Presence] in Blood by Light microscopyUniversity Hospitals Parma Medical CenterPlatelet mean volume Auto (Bld) [Entitic vol]Ordered By: Francisco Duncan on 70-07-9161Xsctjigo mean volume (Bld) [Entitic vol]Platelet mean volume [Entitic volume] in Blood by Automated count6.6-10.1FMarion HospitalPlatelet morphology finding [Identifier] in BloodOrdered By: Francisco Duncan on 21-23-4450Pphcbcpo morphology finding Nom (Bld)Platelet morphology finding [Identifier] in BloodNoMarietta Osteopathic Clinic Platelets Auto (Bld) [#/Vol]Ordered By: Francisco Duncan on 77-33-0919Moayqfnes (Bld) [#/Vol]Platelets [#/volume] in Blood by Automated -626DgggopmbcSt. Mary'S Medical CenterPoikilocytosis [Presence] in Blood by Light microscopy Ordered By: Francisco Duncan on 16-16-1473Ndhkfefhaktneb LM Ql (Bld)Poikilocytosis [Presence] in Blood by Light microscopySt. Mary'S Medical Center Polychromasia [Presence] in Blood by Light microscopyOrdered By: Francisco Duncan on 00-62-5800Metwozgbndund LM Ql (Bld)Polychromasia [Presence] in Blood by Light microscopySt. Mary'S Medical CenterPotassium [Moles/volume] in Serum or PlasmaOrdered By: Francisco Duncan on 32-16-8013Xbmuhskmu [Moles/Vol]Potassium [Moles/volume] in Serum or PlasmaLow3.5-5.1FMarion Hospital Protein Test strip (U) [Mass/Vol]Ordered By: Francisco Duncan on 67-77-6290Ijbfqhe (U) [Mass/Vol]Protein [Mass/volume] in Urine by Test stripNegativeSt. Mary'S Medical CenterProtein [Mass/volume] in Serum or PlasmaOrdered By: Francisco Duncan on 42-11-7866Sjtuwxk [Mass/Vol]Protein [Mass/volume] in Serum or Plasma6.4-8.9St. [facility] Medical CenterProthrombin Time INRon 08-11-2024 INR Coag (PPP) [Relative time]1.2 {INR}NormalThe [facility] Comment on above:Result Comment: [...] CBC, CK, PT, PTT, CMP, HS TROP ####[place] [address] [place] [id number] [facility] PT Coag (PPP) [Time]13.8 sHigh9.0-12.9The [facility] Physician [facility] HospitalComment on above:Result Comment: A hematocrit value greater than 55% may lead to inaccurate results in coagulation testing. Patients having hematocrit values >55% require a special collection tube for coagulation studies. Please contact the laboratory at [phone] for redraw instructions.Performed By: #### DIFF CBC, CK, PT, PTT, CMP, HS TROP ####[place] [place] [address] USAProthrombin time (PT)Ordered By: Francisco Duncan on 20-04-0976MW Coag (PPP) [Time]Prothrombin time (PT)High9.0-12.9[facility] Comment on above:A hematocrit value greater than 55% may lead to inaccurate results in coagulation testing. Patientshaving hematocrit values >55% require a special collection tube for coagulation studies. Please contact the laboratory at [phone] for redraw instructions.RBC Auto (Bld) [#/Vol]Ordered By: Francisco Duncan on 46-80-2538HVU (Bld) [#/Vol]Erythrocytes [#/volume] in Blood by Automated count3.90-5.60[facility] Medical Centeregmented neutrophils/100 WBC Manual cnt (Bld)Ordered By: Francisco Duncan on 08-11-2024 Segmented neutrophils/100 WBC (Bld)Manual blood segmented neutrophils/100 qtndtpmebz82-31YunuxuoplCoshocton Regional Medical Centererum or plasma albumin/globulin mass ratioOrdered By: Francisco Duncan on 95-76-6238Shpkbrp/Globulin [Mass ratio] Serum or plasma albumin/globulin mass ratioSt. Mary'S Medical Center Serum or plasma anion gap determinationOrdered By: Francisco Duncan on 08-11-2024 Anion gap [Moles/Vol]Serum or plasma anion gap determinationHigh6.0-15.0 [facility] Centererum or plasma iron binding capacity measurement (mass/volume)Ordered By: Marge Andino on 68-82-8386Roxr binding capacity [Mass/Vol]Iron binding capacity [Mass/volume] in Serum or Bogbpv416-367 [facility] Centererum or plasma iron saturation measurement (mass fraction)Ordered By: Marge Andino on 48-62-6437Rvrg saturation [Mass fraction]Iron saturation [Mass Fraction] in Serum or SzkkjeGls60-21FgnsjnniwCoshocton Regional Medical Centerodium [Moles/volume] in Serum or PlasmaOrdered By: Francisco Duncan on 13-30-6698Vfteah [Moles/Vol]Sodium [Moles/volume] in Serum or Htcxhr770-799VitytxhthCoshocton Regional Medical Centerpecific gravity Test strip (U) [Rel density]Ordered By: Francisco Duncan on 19-23-5310Fejzxxaj gravity (U) [Rel density]Specific gravity of Urine by Test strip1.001-1.030St. [facility] Medical CenterThyroid Stimulating Hormoneon 80-31-4001ENB Qn4.18 m[IU]/LNormal 0.45-5.33The [facility] Physician GroupComment on above:Order Comment: Comment addPerformed By: #### TSH3, MG, UEEC39EPC, VWBY96IK ####[facility] [address] [place] [address] USAThyrotropin [Units/volume] in Serum or PlasmaOrdered By: Marge Andino on 18-15-9384PAW QnThyrotropin [Units/volume] in Serum or Plasma0.45-5.33[facility] Transferrin [Mass/volume] in Serum or PlasmaOrdered By: Marge Andino on 11-76-6255Qkegbdzrmfv [Mass/Vol]Transferrin [Mass/volume] in Serum or Plasma 203-362St. [facility]S Medical CenterTroponin I High Sensitivityon 08-11-2024 Troponin I High Cdbofbksmoe5Gudddf5-03Tow [facility] Physician GroupComment on above:Result Comment: The Troponin units of report have been changed to meet the Chest Pain Accreditationrequirement, element EC5.M1l2. Troponin units are changed from pg/ml to ng/L. Also, the decimal is removed and results are in whole numbers.PERFORMED BY:[facility] [place], [place] [phone] MEDICAL DIRECTORMIKE LIU M.D.Performed By: #### DIFF CBC, CK, PT, PTT, CMP, HS TROP ####[facility] [place] [address] USATroponin I.cardiac [Mass/volume] in Serum or Plasma by Detection limit <= 0.01 ng/ Ordered By: Francisco Duncan on 08-07-8155Ebgoqtsl I.cardiac DL <= 0.01 ng/mL [Mass/Vol]Troponin I.cardiac [Mass/volume] in Serum or Plasma by Detection limit <= 0.01 ng/0-20St. [facility]'S Medical CenterComment on above:The Troponin units of report have been changed to meet the Chest Pain Accreditation requirement, element EC5.M1l2. Troponin units are changed from pg/ml to ng/L. Also, the decimal is removed and results are in whole numbers.Urea nitrogen [Mass/volume] in Serum or PlasmaOrdered By: Francisco Duncan on 71-22-5542Gcwa nitrogen [Mass/Vol]Urea nitrogen [Mass/volume] in Serum or PlasmaHigh7-25 [facility] Medical CenterUrinalysison 12-41-1840Ragbjeacpz (U)Clear NormalClearThe [facility] Physician GroupComment on above:Order Comment: Name Collection Type:: VoidedPerformed By: #### UA ####[address] [address] USABilirubin,UrineNegativeNormalNegative The [facility] Physician GroupComment on above:Order Comment: Name Collection Type:: VoidedPerformed By: #### UA ####[address] [address] USAColor (U)Light-YellowNormalYellowThe [facility] Physician GroupComment on above:Order Comment: Name Collection Type:: Voided Performed By: #### UA ####[address] [address] USAGlucose Ql (U)500 mg/dLJFK Medical Center Physician GroupComment on above:Order Comment: Name Collection Type:: Voided Performed By: #### UA ####[address] [address] USAKetones Ql (U)NegativeNormalNegativeMayo Clinic Florida Physician GroupComment on above:Order Comment: Name Collection Type:: Voided Performed By: #### UA ####[address] [address] USALeukocyte esterase Test strip Ql (U)NegativeNormal NegativeMayo Clinic Florida Physician GroupComment on above:Order Comment: Name Collection Type:: VoidedPerformed By: #### UA ####[address] [address] USANitrite,UrineNegativeNormalNegativeMayo Clinic Florida Physician GroupComment on above:Order Comment: Name Collection Type:: VoidedPerformed By: #### UA ####[address] [address] USAOccult Blood,UrineNegativeNormalNegativeThe [facility] Physician GroupComment on above:Order Comment: Name Collection Type:: VoidedResult Comment: PERFORMED BY:[address] [place], [place] [phone] MEDICAL DIRECTORMIKE LIU M.D.Performed By: #### UA ####[address] [place] [address] USApH (U)5.5 [pH]Normal5.0-9.0The [facility] Physician GroupComment on above:Order Comment: Name Collection Type:: VoidedPerformed By: #### UA ####[address] [address] USAProtein,UrineNegativeNormalNegativeThe [facility] Physician GroupComment on above:Order Comment: Name Collection Type:: VoidedPerformed By: #### UA ####[address] [address] [facility] Specificy Mobile,Urine1.928Iazxom9.001-1.030The [facility] Comment on above:Order Comment: Name Collection Type:: VoidedPerformed By: #### UA ####[address] [address] [facility] Urobilinogen,UrineNormalNormalNormalThe [facility] Physician GroupComment on above:Order Comment: Name Collection Type:: VoidedPerformed By: #### UA ####[address] [address] [facility] Urobilinogen Test strip (U) [Mass/Vol]Ordered By: Francisco Duncan on 08-11-2024 Urobilinogen (U) [Mass/Vol]Urobilinogen [Mass/volume] in Urine by Test strip [facility] Medical CenterVit. B12/Folate Profileon 08-11-2024 Cobalamin (Vitamin B12) [Mass/Vol]129 pg/dKPwg988-593Tks [facility] Physician GroupComment on above:Order Comment: Comment addPerformed By: #### TSH3, MG, [id number], [id number] ####[address] [place] [address] ICSBhuoti55.0 ng/mLNormal>5.9The [facility] Physician GroupComment on above:Order Comment: Comment addResult Comment: Folate reference range: >5.9 ng/ml The WHO technical consultation on folate and vitamin b12 deficiencies has determined that folate concentrations less than 4 ng/ml are considered d eficient.Performed By: #### TSH3, MG, UYUU85TNI, [id number] ####[facility] [place] [address] [facility]OSPITALVitamin B12 ser/plasOrdered By: Marge Andino on 96-56-0920Swtrklmol (Vitamin B12) [Mass/Vol]Vitamin B12 ser/bqksZiv745-197YxfmnckvxSt. Mary'S Medical CenterVitamin D 25 Hydroxy Totalon 05-24-1192Wxwbhdv D 25 Hydroxy Total15.0 ng/dPPkl51-937Xtu [facility] Physician GroupComment on above:Order Comment: Comment addResult Comment: VITAMIN D STATUS 25(OH)VITAMIN D RANGE (ng/mL) Deficient <20 Insufficient 20 to <30 Sufficient 30 to 100 Reference: Ibrahima Ryees, Kasey LONG, et al. Evaluation,treatment, and prevention of vitamin D deficiency; an Endocrine Society clinical practice guideline.JCEM. 2010; 96(7):191-.PERFORMED BY:[address] [place], [place] [phone] MEDICAL DIRECTORMIKE CABAN M.D. Performed By: #### TSH3, MG, LKDZ62GPM, HHFF90JD ####[address] [place] [address] [facility]OSPITALVitamin D+Metabolites [Mass/volume] in Serum or PlasmaOrdered By: Marge Andino on 21-78-1638Fiegqtt D+Metabolites [Mass/Vol]Vitamin D+Metabolites [Mass/volume] in Serum or ZurwbnVgw03-053 [facility] Medical CenterComment on above:VITAMIN D STATUS 25(OH)VITAMIN D RANGE (ng/mL) Deficient <20 Insufficient 20 to <79Ldzrrntyfj17 to 100Reference: Ibrahima Reyes, Kasey LONG, et al. Evaluation,treatment, and prevention of vitamin D deficiency; an Endocrine Society clinical practice guideline. JCEM. 2010; 96(7):1911-.WBC Auto (Bld) [#/Vol]Ordered By: Francisco Duncan on 68-48-1492MSR (Bld) [#/Vol]Leukocytes [#/volume] in Blood by Automated countHigh4.1-10.5FMarion HospitalX-ray reportOrdered By: Sudeep Lind on 11-83-9827Anisl reportAULTMAN ALLIANCE [facility] Main [place] [address] [place], [place] [id number] XRay Report Signed Patient: Myra Pickard SR MR#: [id number] : 1965 Acct:[id number] Age/Sex: 59 / M ADM Date: 5 Loc: Room: [address] [place] [address] Type: ADM IN Attending Dr: Kevon Viera [...] Sudeep Lind M.D.08/11/2024 10:06 AM Dictation Location: [place] [address] Transcribed By: [facility] 08/11/24 1006 Dictated By: Sudeep Lind DO 08/11/24 1006 Signed By: 08/11/[address] [facility] CenterXR chest 1V portableon 75-23-7140BQ chest 1V portablePalm Beach Gardens Medical Center Physician GroupaPTT in Platelet poor plasma by Coagulation assayOrdered By: Francisco Duncan on 26-70-3440oSCI Coag (PPP) [Time] Activated partial thromboplastin time (aPTT) in platelet poor plasma by coagulation a25.1-36.5FMarion HospitalComment on above:A hematocrit value greater than 55% may lead to inaccurate results in coagulation testing. Patientshaving hematocrit values >55% require a special collection tube for coagulation studies. Please contact the laboratory at [phone] for redraw instructions.pH Test strip (U)Ordered By: Francisco Duncan on 74-48-5116cB (U)pH of Urine by Test strip5.0-9.0St. [facility] Medical CenterUrology Office/Clinic Noteon 15-90-2725Ygvkjzj Office/Clinic NoteUrology Office/Clinic Note Chief Complaint Patient is here for scrotal pain HPI Staff Patient is here for f/u to [facility] ER 07/24/24 due to [...] w Right BKA. 1. Orchitis (N45.2: Orchitis) [facility] ER 07/24/24 w sudden onset scrotal/groin [...] pain meds. Will provide limited rx Ultram. Field Agronomist Cl 44. 08/02/2024 09:33:52 I certify that I have reviewed the OARRS report and all PDMP information in thischart. Follow-up With When Contact Information [facility] Additional Instructions: Only if needed/new [...] 1 cap(s), Oral, (more content not included)... [facility] HospitalComment on above:Result Comment: Electronically Signed By: MARYBEL VANG PA-C.br\Date and Time Signed: 08/07/2511:28 EST Basophils Auto (Bld) [#/Vol]on 88-65-5418Ugcsoearl (Bld) [#/Vol]Automated basophil count0.0-0.1FMarion HospitalBasophils/100 WBC Auto (Bld)on 58-83-2598Pjywdlaaq/100 WBC (Bld)Automated basophil %0.2-2.0[facility]. [facility]S Medical CenterEosinophils/100 WBC Auto (Bld)on 07-24-2024 Eosinophils/100 WBC (Bld)Automated eosinophil %0.9-7.0St. [facility] Medical CenterErythrocyte distribution width Auto (RBC) [Ratio]on 72-90-3165Eceojqvsadp distribution width (RBC) [Ratio]Erythrocyte distribution width [Ratio] by Automated wkppuGkya43.0-15.0[facility] Medical CenterEstimated glomerular filtration rate (GFR) non- Americanon 12-87-0879SFM/1.73 sq M.predicted among non-blacks MDRD (S/P/Bld) [Vol rate/Area]Estimated glomerular filtration rate (GFR) non- AmericanLow>=60 mL/min/1.73m 2FMarion HospitalGlobulin Calc (S) [Mass/Vol]on 49-65-0011Bskhkyry (S) [Mass/Vol]Serum globulin measurement by calculation (mass/volume)[facility]S Medical CenterHematocrit Auto (Bld) [Volume fraction]on 07-24-2024 Hematocrit (Bld) [Volume fraction]Hematocrit [Volume Fraction] of Blood by Automated lvbqvRoq62.0-54.0[facility] Medical CenterHemoglobin [Mass/volume] in Bloodon 92-19-2595Mxsgziohpu (Bld) [Mass/Vol]Hemoglobin [Mass/volume] in YvyifKkw82.0-18.0[facility] CenterLaboratory - Chemistry and Chemistry - challengeon 18-07-8790Mhsqyfa [Mass/Vol]3.3 g/dLLow 3.4-5.0[facility] Medical CenterALP [Catalytic activity/Vol]111 U/L 46-116St[facility] CenterALT [Catalytic activity/Vol]16 U/L16-63 [facility] CenterAST [Catalytic activity/Vol]11 U/WLxp21-05 [facility] Medical CenterBilirubin [Mass/Vol]0.4 mg/dL0.2-1.0[facility] CenterCalcium [Mass/Vol]8.4 mg/dLLow8.5-10.1FMarion HospitalChloride [Moles/Vol]102 mmol/P48-875DdetrtuwcSt. Mary'S Medical CenterCO2 [Moles/Vol]26.3 mmol/L21.0-32.0[facility] Creatinine [Mass/Vol]2.28 mg/dLHigh0.70-1.30[facility] GFR/1.73 sq M.predicted MDRD (S/P/Bld) [Vol rate/Area]36 mL/min/{1.73_m2}Low>=60 mL/min/1.73m 2FMarion HospitalGlucose [Mass/Vol]177 mg/dLHigh 74-106St. [facility]S Medical CenterLactate [Moles/Vol]1.8 mmol/L0.4-2.0 [facility] CenterPotassium [Moles/Vol]3.4 mmol/LLow3.5-5.1 [facility] CenterProtein [Mass/Vol]7.0 g/dL6.4-8.2FTriHealth Good Samaritan Hospitalodium [Moles/Vol]139 mmol/S894-066KiidpnwdxSt. Mary'S Medical CenterUrea nitrogen [Mass/Vol]22.0 mg/dLHigh7.0-18.0St. [facility] Medical CenterUrea nitrogen/Creatinine [Mass ratio]9.6 mg/mgSt. Mary'S Medical CenterLaboratory - Hematology and Cell countson 60-08-2944Jldbrdzl granulocytes/100 WBC (Bld)0.3 %0.0-0.5FMarion Hospital Leukocytes [#/volume] corrected for nucleated erythrocytes in Blood by Automated counon 04-62-3240TBM corrected for nucl RBC Auto (Bld) [#/Vol]Leukocytes [#/volume] corrected for nucleated erythrocytes in Blood by Automated coun 4.0-11.0St. [facility]S Medical CenterLymphocytes Auto (Bld) [#/Vol]on 63-92-9374Qjgzkogpkqv (Bld) [#/Vol]Lymphocytes [#/volume] in Blood by Automated count1.2-3.8St. [facility] Medical CenterLymphocytes/100 WBC Auto (Bld)on 93-75-3798Ykeermwsufr/100 WBC (Bld)Lymphocytes/100 leukocytes in Blood by Automated count20.5-60.0[facility] HospitalH Auto (RBC) [Entitic mass]on 09-63-9374OGN (RBC) [Entitic mass]MCH [Entitic mass] by Automated count Low25.9-34.0St. [facility]S Medical CenterMCHC Auto (RBC) [Mass/Vol]on 26-22-8217FRBW (RBC) [Mass/Vol]MCHC [Mass/volume] by Automated ejckpEny51.9-35.[address] [facility] HospitalV Auto (RBC) [Entitic vol]on 60-46-1827SMJ (RBC) [Entitic vol]MCV [Entitic volume] by Automated ueqqnAds61.0-94.0[facility] Medical CenterMonocytes Auto (Bld) [#/Vol]on 30-13-9191Zxrvtpsni (Bld) [#/Vol]Automated blood monocyte countHigh0.3-0.8St. [facility] Medical CenterMonocytes/100 WBC Auto (Bld)on 69-45-2966Ietkapbde/100 WBC (Bld)Automated monocyte %1.7-12.0[facility] Medical CenterNeutrophils Auto (Bld) [#/Vol]on 84-73-8314Wudnqknutua (Bld) [#/Vol]Neutrophils [#/volume] in Blood by Automated count1.4-6.5FMarion HospitalNeutrophils/100 WBC Auto (Bld)on 64-63-5672Ehfaxniifdq/100 WBC (Bld)Automated neutrophil %43.0-75.0 [facility] Medical CenterNo Panel Informationon 51-41-1258Tshzxojfgvv # (Auto)0.4 10 3/uL0.0-0.7FMarion HospitalImmature Granulocyte # (Auto)0.03 10 3/uL0.00-0.03St. [facility]S Medical CenterPlatelet mean volume Auto (Bld) [Entitic vol]on 70-64-5791Vcjqwcrl mean volume (Bld) [Entitic vol] Platelet mean volume [Entitic volume] in Blood by Automated count9.5-13.5 [facility]S Medical CenterPlatelets Auto (Bld) [#/Vol]on 07-24-2024 Platelets (Bld) [#/Vol]Platelets [#/volume] in Blood by Automated -012 [facility]S Medical CenterRBC Auto (Bld) [#/Vol]on 33-04-7450PWW (Bld) [#/Vol]Erythrocytes [#/volume] in Blood by Automated count4.70-6.10[facility] Medical Centererum or plasma albumin/globulin mass ratioon 07-24-2024 Albumin/Globulin [Mass ratio]Serum or plasma albumin/globulin mass ratio [facility] Centererum or plasma anion gap determinationon 93-13-8823Efppi gap [Moles/Vol]Serum or plasma anion gap determinationSt. Mary'S Medical CenterPSA Totalon 23-93-4561Mhrzlkqh specific Ag [Mass/Vol]1.0 ng/mLNormal0.1-3.5Fisher [facility] CenterComment on above:Result Comment: The concentration of PSA determined by different manufacturers can vary due to differences in assay methods and reagent specificity. Values obtained from different assay methods cannot be used interchangeably. The methodology used for this result was chemiluminescence using [employer]'s Access Hybritech PSA reagent.Performed By: #### [id number] #### [facility] [address], [place] [address]Dxoqujagrv Visit Summaryon 84-60-5952Bjiudlvtkz Visit Summary Ambulatory Visit Summary MYRA PICKARD [...] [facility] [address], [place] [phone] Medications What How Much When Instructions Unchanged tamsulosin (tamsulosin 0.4 mg Cap) 1 Capsules By Mouth 2 times a day Pickup at [facility]/pharmacy #[id number] Unchanged albuterol (ProAir HFA) Inhalation Every 6 [...] questions or concerns Unchanged (more content not included)...[facility] HospitalUrology Office/Clinic Noteon 42-89-2184Bnwvjmc Office/Clinic NoteUrology Office/Clinic Note Chief Complaint 1 [...] urination. -Cont Tamsulosin bid. Refills sent to [facility]. 2. Screening PSA (prostate specific [...] URL [facility] [address], [place] [facility] [place] [phone] Additional Instructions: 1 yr Patient Education Benign [...] tab(s), Oral, Daily me (more content not included)...[facility] HospitalComment on above:Result Comment: Electronically Signed By: Yeyo ROWE MD\.br\Date and Time Signed: 05/27/24 16:02 EST\.br\Electronically Co-Signed By: Sharri Mora\.br\Date and Time Co-Signed: 05/27/24 16:01 ESTGlucose Glucometer (dC) [Mass/Vol]Ordered By: Mike Burleson on 27-84-7869Wfgavax [Mass/Vol]Capillary blood glucose measurement by glucometer (mass/volume)[facility] Medical CenterComment on above:Random Glucose Reference Range is dependent on time and content of last meal. Glucose of more than 200 mg/dL in a nonstressed, ambulatory subject supports the diagnosis of Diabetes Mellitus.Glucose Poct Glucometerson 04-79-7456Hqrylyv0Zjb6: Cleaned [facility] Physician GroupComment on above:Result Comment: PERFORMED BY:[facility] [place], [place] [phone] MEDICAL DIRECTORMIKE CABAN M.D.Performed By: #### GLULS ####Point of Care testing,Glucose [Mass/Vol]212 mg/dLNoPsychiatric hospital Physician GroupComment on above:Result Comment: Random Glucose Reference Range is dependent on time and content of last meal. Glucose of more than 200 mg/dL in a nonstressed, ambulatory subject supports the diagnosis of Diabetes Mellitus.Performed By: #### GLULS ####Point of Care testing,Guy 30-64-8976NLwmduoEgk [facility] Physician GroupNo Panel InformationOrdered By: Mike Burleson on 04-23-2024 Bedside Glucose CommentGlu2: cleaned [facility] HospitalHbA1c HPLC (Bld) [Mass fraction]on 16-56-6894WeX9x (Bld) [Mass fraction]Hemoglobin A1c/Hemoglobin.total in Blood by [facility] System West CampusAlanine aminotransferase [Enzymatic activity/volume] in Serum or PlasmaOrdered By: João Powell on 44-58-3221QKU [Catalytic activity/Vol]38 U/LNormalSt. Mary'S Medical CenterComment on above:Performed By: #### CMP, PHOS, CBC, MG ####[facility] [place] [address] USAALT [Catalytic activity/Vol]Alanine aminotransferase [Enzymatic activity/volume] in Serum or PlasmaSt. Mary'S Medical CenterAlbumin [Mass/volume] in Serum or Plasma by Bromocresol green (BCG) dye binding methoOrdered By: João Powell on 70-90-1972Rwiwwcm BCG dye [Mass/Vol]3.6 g/dL3.5-5.7FMarion HospitalAlbumin BCG dye [Mass/Vol]Albumin [Mass/volume] in Serum or Plasma by Bromocresol green (BCG) dye binding metho3.5-5.7FMarion HospitalAlkaline phosphatase [Enzymatic activity/volume] in Serum or PlasmaOrdered By: João Powell on 97-57-6078JCO [Catalytic activity/Vol]313 U/DDwhn48-688 [facility] Medical CenterComment on above:Performed By: #### CMP, PHOS, CBC, MG ####[address] [address] USAALP [Catalytic activity/Vol]Alkaline phosphatase [Enzymatic activity/volume] in Serum or VnmhtpCmhw71-400XzjzytzkuSt. Mary'S Medical CenterAspartate aminotransferase [Enzymatic activity/volume] in Serum or PlasmaOrdered By: João Powell on 45-29-1604VND [Catalytic activity/Vol]28 U/ETekpsi45-28Arhzbcylk68 Mitchell StreetComment on above:Performed By: #### CMP, PHOS, CBC, MG ####[address] [address] USAAST [Catalytic activity/Vol]Aspartate aminotransferase [Enzymatic activity/volume] in Serum or Oyumwy02-90Kyucfo[address] [place], [place] [address]Automated basophil % Ordered By: João Powell on 99-68-3846Yoxwhesaq/100 WBC (Bld)1.2 %Normal. [facility]S Medical CenterComment on above:Performed By: #### CMP, PHOS, CBC, MG ####[address] [address] USAAutomated basophil countOrdered By: João Powell on 72-75-2362Oynfxvlob (Bld) [#/Vol]0.1 10*3/uLNormal0.0-0.2FMarion HospitalComment on above:Result Comment: PERFORMED BY:[address] [place], [place] [phone] MEDICAL DIRECTORCLIFFORD LOBATO M.D. Performed By: #### CMP, PHOS, CBC, MG ####[address] [address] USAAutomated blood monocyte countOrdered By: João Powell on 48-71-7925Jobkscpjm (Bld) [#/Vol]0.9 10*3/uLHigh0.0-0.8St. [facility]S Medical CenterComment on above:Performed By: #### CMP, PHOS, CBC, MG ####[place] [address] Automated eosinophil %Ordered By: João Powell on 31-59-6772Pxetjniaxgo/100 WBC (Bld)3.0 %Normal.St. [facility]S Medical CenterComment on above:Performed By: #### CMP, PHOS, CBC, MG ####[place] [address] USAAutomated eosinophil countOrdered By: João Powell on 23-85-9736Vhenpittoku (Bld) [#/Vol]0.2 10*3/uLNormal0.0-0.45St[facility] Medical CenterComsinai-grace hospital on above:Performed By: #### CMP, PHOS, CBC, MG ####[address] Automated monocyte %Ordered By: João Powell on 70-05-4272Lbjvarkgr/100 WBC (Bld)14.4 %Normal.St[facility]S Medical CenterComment on above:Performed By: #### CMP, PHOS, CBC, MG ####[place] [address] USAAutomated neutrophil %Ordered By: oJão Powell on 45-55-3599Yocxydgjhdi/100 WBC (Bld)66.7 %Normal.[facility]S Medical CenterComment on above:Performed By: #### CMP, PHOS, CBC, MG ####[place] [address] USABasophils Auto (Bld) [#/Vol]Ordered By: João Powell on 93-47-8551Nyvmjlxny (Bld) [#/Vol]Automated basophil count0.0-0.2FMarion HospitalBasophils/100 WBC Auto (Bld)Ordered By: João Powell on 70-14-7694Uqjhulzlt/100 WBC (Bld)Automated basophil %.St. [facility]S Medical CenterBilirubin.total [Mass/volume] in Serum or PlasmaOrdered By: João Powell on 86-11-3936Dnabywbog [Mass/Vol]0.9 mg/dLNormal0.3-1.0St[facility] Medical CenterComment on above:Performed By: #### CMP, PHOS, CBC, MG ####[facility] [address] [place] [address] USABilirubin [Mass/Vol]Bilirubin.total [Mass/volume] in Serum or Plasma0.3-1.0[facility] Medical CenterCalcium [Mass/volume] in Serum or PlasmaOrdered By: João Powell on 26-53-0432Cecnkae [Mass/Vol]9.1 mg/dLNormal8.6-10.3FMarion HospitalComment on above:Performed By: #### CMP, PHOS, CBC, MG ####[facility] [place] [address] USACalcium [Mass/Vol]Calcium [Mass/volume] in Serum or Plasma8.6-10.3FMarion HospitalCapillary blood glucose measurement by glucometer (mass/volume)Ordered By: Remberto Ervin on 03-13-2024 Glucose [Mass/Vol]155 mg/dLNoMarietta Osteopathic ClinicComment on above:Random Glucose Reference Range is dependent on time and content of last meal. Glucose of more than 200 mg/dL in a nonstressed, ambulatory subject supports the diagnosis of Diabetes Mellitus.Result Comment: Random Glucose Reference Range is dependent on time and content of last meal. Glucose of more than 200 mg/dL in a nonstressed, ambulatory subject supports the diagnosis of Diabetes Mellitus.PERFORMED BY:[address] [place], [place] [phone] MEDICAL DIRECTORCLIFFORD LOBATO M.D. Performed By: #### GLULS ####Point of Care testing,Carbon dioxide, total [Moles/volume] in Serum or PlasmaOrdered By: João Powell on 35-10-8412UW7 [Moles/Vol]23.9 mmol/DUcpbho75.0-31.0St[facility] Medical CenterComment on above:Performed By: #### CMP, PHOS, CBC, MG ####[place] [place] [address] USACO2 [Moles/Vol]Carbon dioxide, total [Moles/volume] in Serum or Yxgfwh60.0-31.0[facility] Chloride [Moles/volume] in Serum or PlasmaOrdered By: João Powell on 03-13-2024 Chloride [Moles/Vol]101 mmol/GLuzwgi20-283Xnrhgrcjs[address] Comment on above:Performed By: #### CMP, PHOS, CBC, MG ####[place] [place] [address] USAChloride [Moles/Vol]Chloride [Moles/volume] in Serum or Jafaxx18-711Cqscfgyxx[address] [place], [place] [address]Complete Blood Count Auto Diffon 53-54-4397Lewv Corpuscular HGB Conc31.7 g/dLLow 32.5-35.6[facility] Physician [facility] HospitalComment on above:Performed By: #### CMP, PHOS, CBC, MG ####[place] [id number] USANRBC%0.1 /100{WBC}Normal0-0.5[facility] Physician [facility] HospitalComment on above:Performed By: #### CMP, PHOS, CBC, MG ####[address] [address] USAComprehensive Metabolic Panelon 52-04-0601Tngsoug [Mass/Vol]3.6 g/dLNormal3.5-5.7[facility] Physician [facility] Comment on above:Performed By: #### CMP, PHOS, CBC, MG ####[address] [address] USACreatinine Clr Calc Pharmacy 56.79NormalThe [facility] Physician [facility] HospitalComment on above:Performed By: #### CMP, PHOS, CBC, MG ####[address] [address] USAGFR/1.73 sq M.predicted MDRD (S/P/Bld) [Vol rate/Area]53.205 mL/min/{1.73_m2}NormalThe [facility] Hospital Physician GroupComment on above:Performed By: #### CMP, PHOS, CBC, MG ####[facility] [address] [place] [address] USACreatinine [Mass/volume] in Serum or PlasmaOrdered By: João Powell on 76-70-8109Qbmerppvki [Mass/Vol]1.51 mg/dLHigh0.70-1.30 [facility] CenterComment on above:Performed By: #### CMP, PHOS, CBC, MG ####[facility] [address] [place] [address] USACreatinine [Mass/Vol]Creatinine [Mass/volume] in Serum or PlasmaHigh0.70-1.30 [facility] Medical CenterEosinophils Auto (Bld) [#/Vol]Ordered By: João Powell on 57-07-0879Tfiblqaybxx (Bld) [#/Vol]Automated eosinophil count 0.0-0.45St. [facility] Medical CenterEosinophils/100 WBC Auto (Bld)Ordered By: João Powell on 99-34-5574Eozqtwnltqz/100 WBC (Bld)Automated eosinophil %. [facility] Medical CenterErythrocyte distribution width Auto (RBC) [Ratio]Ordered By: João Powell on 46-51-5625Vbyqxjcnntn distribution width (RBC) [Ratio]Erythrocyte distribution width [Ratio] by Automated countHigh 12.0-14.8St. [facility]S Medical CenterErythrocyte distribution width [Ratio] by Automated countOrdered By: João Powell on 17-89-3322Vrrtirzvnat distribution width (RBC) [Ratio]24.5 %High12.0-14.8St[facility] Medical CenterComment on above:Performed By: #### CMP, PHOS, CBC, MG ####[place] [address] [place] [address] USAErythrocytes [#/volume] in Blood by Automated countOrdered By: João Powell on 32-84-5202DRU (Bld) [#/Vol]4.12 10*6/uLNormal3.90-5.60[facility] Medical CenterComment on above:Performed By: #### CMP, PHOS, CBC, MG ####[facility] [place] [address] USAGlobulin Calc (S) [Mass/Vol]Ordered By: João Powell on 86-21-2332Urotnpsg (S) [Mass/Vol]Serum globulin measurement by calculation (mass/volume)[facility] Medical CenterGlucose Glucometer (BldC) [Mass/Vol]Ordered By: Remberto Ervin on 10-31-9252Ojsoeuz [Mass/Vol] Capillary blood glucose measurement by glucometer (mass/volume)[facility]S Medical CenterComment on above:Random Glucose Reference Range is dependent on time and content of last meal. Glucose of more than 200 mg/dL in a nonstressed, ambulatory subject supports the diagnosis of Diabetes Mellitus. Glucose Poct Glucometerson 04-24-7265Qorfnjq [Mass/Vol]162 mg/dLNoPsychiatric hospital Physician GroupComment on above:Result Comment: Random Glucose Reference Range is dependent on time and content of last meal. Glucose of more than 200 mg/dL in a nonstressed, ambulatory subject supports the diagnosis of Diabetes Mellitus.PERFORMED BY:[address] [place], [place] [phone] MEDICAL DIRECTORCLIFFORD LOBATO M.D. Performed By: #### GLULS ####Point of Care testing,Glucose [Mass/volume] in Serum or PlasmaOrdered By: João Powell on 97-58-1025Ndpowlq [Mass/Vol]149 mg/dL Mvzr11-809AwvzplqqdSt. Mary'S Medical CenterComment on above:ADA recommended reference rangeRandom Glucose Reference [...] rangePerformed By: #### CMP, PHOS, CBC, MG ####[facility] [place] [address] USAGlucose [Mass/Vol]Glucose [Mass/volume] in Serum or JybxqdRlvb34-294RtquachxeSt. Mary'S Medical CenterComment on above:ADA recommended reference rangeRandom Glucose Reference Range is dependent on time and content of last meal. Glucose of more than 200 mg/dL in a nonstressed, ambulatory subject supports the diagnosisof Diabetes Mellitus.Hematocrit Auto (Bld) [Volume fraction]Ordered By: João Powell on 01-33-9122Rvucobvarb (Bld) [Volume fraction]Hematocrit [Volume Fraction] of Blood by Automated countLow 38.8-50.0St. [facility]S Medical CenterHematocrit [Volume Fraction] of Blood by Automated countOrdered By: João Powell on 72-32-0909Dtimqngpej (Bld) [Volume fraction]29.9 %Low38.8-50.0St. [facility]S Medical CenterComment on above: Performed By: #### CMP, PHOS, CBC, MG ####[facility] [address] [place] [address] USAHemoglobin [Mass/volume] in BloodOrdered By: João Powell on 72-71-5924Kqfllzoaam (Bld) [Mass/Vol]9.5 g/dLLow13.0-17.0 [facility]S Medical CenterComment on above:Performed By: #### CMP, PHOS, CBC, MG ####[facility] [address] [place] [address] USAHemoglobin (Bld) [Mass/Vol]Hemoglobin [Mass/volume] in WpeaqFaf29.0-17.0 [facility]S Medical CenterLeukocytes [#/volume] corrected for nucleated erythrocytes in Blood by Automated counOrdered By: João Powell on 25-02-1592ELQ corrected for nucl RBC Auto (Bld) [#/Vol]6.0 10*3/uL4.1-10.5FMarion HospitalWBC corrected for nucl RBC Auto (Bld) [#/Vol]Leukocytes [#/volume] corrected for nucleated erythrocytes in Blood by Automated coun4.1-10.5 [facility] Medical CenterLeukocytes [#/volume] in Blood by Automated countOrdered By: João Powell on 73-57-1215VEL (Bld) [#/Vol]6.0 10*3/uLNormal 4.1-10.5FMarion HospitalComment on above:Performed By: #### CMP, PHOS, CBC, MG ####[address] [place] [address] USALymphocytes Auto (Bld) [#/Vol]Ordered By: João Powell on 03-13-2024 Lymphocytes (Bld) [#/Vol]Lymphocytes [#/volume] in Blood by Automated countLow 1.00-4.8St. [facility]S Medical CenterLymphocytes [#/volume] in Blood by Automated countOrdered By: João Powell on 50-05-4733Vtlozyfhotu (Bld) [#/Vol] 0.9 10*3/uLLow1.00-4.8St. [facility]S Medical CenterComment on above: Performed By: #### CMP, PHOS, CBC, MG ####[id number] USALymphocytes/100 WBC Auto (Bld)Ordered By: João Powell on 19-01-7483Vskygxppqqs/100 WBC (Bld)Lymphocytes/100 leukocytes in Blood by Automated count.[facility]. [facility]S Medical CenterLymphocytes/100 leukocytes in Blood by Automated countOrdered By: João Powell on 03-13-2024 Lymphocytes/100 WBC (Bld)14.7 %Normal.St. [facility]'S Medical CenterComment on above:Performed By: #### CMP, PHOS, CBC, MG ####[id number] [facility] Auto (RBC) [Entitic mass]Ordered By: João Powell on 11-37-1356PUJ (RBC) [Entitic mass]MCH [Entitic mass] by Automated gzmdwAne53.5-35.2FNationwide Children's Hospital [Entitic mass] by Automated countOrdered By: João Powell on 92-15-9784MHX (RBC) [Entitic mass] 23.0 pgLow27.5-35.2FMarion HospitalComment on above:Performed By: #### CMP, PHOS, CBC, MG ####[address] [address] [facility] Auto (RBC) [Mass/Vol]Ordered By: João Powell on 49-53-4920TYFA (RBC) [Mass/Vol]31.7 g/dLLow32.5-35.6FSt. Rita's HospitalHC (RBC) [Mass/Vol]MCHC [Mass/volume] by Automated countLow 32.5-35.6FHolzer Health System Auto (RBC) [Entitic vol]Ordered By: João Powell on 79-96-4857SFR (RBC) [Entitic vol]MCV [Entitic volume] by Automated izzvpDwb56.5-101[facility] Charles HospitalV [Entitic volume] by Automated countOrdered By: João Powell on 37-16-1057BTD (RBC) [Entitic vol] 72.[address]LL[address] [place], [place] [address]Comment on above:Performed By: #### CMP, PHOS, CBC, MG ####[address] [address] USAMagnesium [Mass/volume] in Serum or PlasmaOrdered By: João Powell on 95-13-8042Wwjxipoue [Mass/Vol]1.7 mg/dLLow1.9-2.7FMarion HospitalComment on above:Result Comment: PERFORMED BY:[address] [place], [place] [phone] MEDICAL BRISA LOBATO M.D.Performed By: #### CMP, PHOS, CBC, MG ####[address] [address] [place] Magnesium [Mass/Vol]Magnesium [Mass/volume] in Serum or PlasmaLow1.9-2.7 [facility] Medical CenterMonocytes Auto (Bld) [#/Vol]Ordered By: João Powell on 38-00-9520Owsiwygwn (Bld) [#/Vol]Automated blood monocyte countHigh 0.0-0.8St. [facility]S Medical CenterMonocytes/100 WBC Auto (Bld)Ordered By: João Powell on 93-52-3403Tgfnebdvq/100 WBC (Bld)Automated monocyte %.St. [facility]'S Medical CenterNeutrophils Auto (Bld) [#/Vol]Ordered By: João Powell on 06-01-2278Vonshhrmpit (Bld) [#/Vol]Neutrophils [#/volume] in Blood by Automated count1.8-7.7FMarion HospitalNeutrophils [#/volume] in Blood by Automated countOrdered By: João Powell on 88-16-1373Ixisazvldue (Bld) [#/Vol] 4.0 10*3/uLNormal1.8-7.7FMarion HospitalComment on above: Performed By: #### CMP, PHOS, CBC, MG ####[facility] [address] [place] [address] USANeutrophils/100 WBC Auto (Bld)Ordered By: João Powell on 48-91-0230Yussxptgpke/100 WBC (Bld)Automated neutrophil %. [facility] Medical CenterNo Panel InformationOrdered By: João Powell on 36-22-6192Fjqnqxtqj GFR (CKD-EPI)53.205 mL/[facility] Creatinine Clearance (Chem56.79[facility]53.205 mL/[facility]56.79[facility] Nucleated erythrocytes [Presence] in Blood by Automated countOrdered By: João Powell on 14-15-5926Uyhkgtsoq RBC Auto Ql (Bld)0.1 /100{WBC}0-0.5FMarion HospitalNucleated RBC Auto Ql (Bld)Nucleated erythrocytes [Presence] in Blood by Automated count0-0.5FMarion Hospital Phosphate [Mass/volume] in Serum or PlasmaOrdered By: João Powell on 03-13-2024 Phosphate [Mass/Vol]3.0 mg/dLNormal2.5-4.5FMarion Hospital Comment on above:Performed By: #### CMP, PHOS, CBC, MG ####[address] [address] USAPhosphate [Mass/Vol]Phosphate [Mass/volume] in Serum or Plasma2.5-4.5FMarion HospitalPlatelet mean volume Auto (Bld) [Entitic vol]Ordered By: João Powell on 03-13-2024 Platelet mean volume (Bld) [Entitic vol]Platelet mean volume [Entitic volume] in Blood by Automated count6.6-10.1FMarion HospitalPlatelet mean volume [Entitic volume] in Blood by Automated countOrdered By: João Powell on 84-32-8393Fyxzzjxe mean volume (Bld) [Entitic vol]8.9 fLNormal6.6-10.1FMarion HospitalComment on above:Performed By: #### CMP, PHOS, CBC, MG ####[phone] [place] Platelets Auto (Bld) [#/Vol]Ordered By: João Powell on 83-82-3905Soqxzrpkf (Bld) [#/Vol]Platelets [#/volume] in Blood by Automated zhnki501-370LabgpodijSt. Mary'S Medical CenterPlatelets [#/volume] in Blood by Automated countOrdered By: João Powell on 77-42-5164Bwxxzmolw (Bld) [#/Vol]197 10*3/hYMxvjae721-945 [facility]S Medical CenterComment on above:Performed By: #### CMP, PHOS, CBC, MG ####[id number] USAPotassium [Moles/volume] in Serum or PlasmaOrdered By: João Powell on 09-39-4838Wuloushpi [Moles/Vol]3.9 mmol/LNormal3.5-5.1FMarion HospitalComment on above:Performed By: #### CMP, PHOS, CBC, MG ####[address] [address] USAPotassium [Moles/Vol] Potassium [Moles/volume] in Serum or Plasma3.5-5.1FMarion HospitalProtein [Mass/volume] in Serum or PlasmaOrdered By: João Powell on 04-26-6748Vrmbgol [Mass/Vol]7.5 g/dLNormal6.4-8.9St. [facility]S Medical CenterComment on above:Performed By: #### CMP, PHOS, CBC, MG ####[address] [place] [address] USAProtein [Mass/Vol] Protein [Mass/volume] in Serum or Plasma6.4-8.9[facility] RBC Auto (Bld) [#/Vol]Ordered By: João Powell on 93-56-0465MWA (Bld) [#/Vol] Erythrocytes [#/volume] in Blood by Automated count3.90-5.60[facility] Medical Centererum globulin measurement by calculation (mass/volume)Ordered By: João Powell on 19-58-0114Bwnxaqiv (S) [Mass/Vol]3.9 g/dLNoMarietta Osteopathic ClinicComment on above:Performed By: #### CMP, PHOS, CBC, MG ####[address] [address] USASerum or plasma albumin/globulin mass ratioOrdered By: João Powell on 03-13-2024 Albumin/Globulin [Mass ratio]0.9 {ratio}NormalSt. Mary'S Medical Center Comment on above:Performed By: #### CMP, PHOS, CBC, MG ####[address] [address] USAAlbumin/Globulin [Mass ratio] Serum or plasma albumin/globulin mass ratioSt. Mary'S Medical Center Serum or plasma anion gap determinationOrdered By: João Powell on 03-13-2024 Anion gap [Moles/Vol]13.0 mmol/LNormal6.0-15.0[facility] Comment on above:Performed By: #### CMP, PHOS, CBC, MG ####[address] [address] USAAnion gap [Moles/Vol]Serum or plasma anion gap determination6.0-15.0[facility] Medical Centerodium [Moles/volume] in Serum or PlasmaOrdered By: João Powell on 26-96-3886Hbreiy [Moles/Vol]134 mmol/UUnl115-309Fmbsrjfy[address] [place], [place] [address]Comment on above:Performed By: #### CMP, PHOS, CBC, MG ####[address] [place] [address] USASodium [Moles/Vol]Sodium [Moles/volume] in Serum or HuogsgHyn818-630HcvhfclbfSt. Mary'S Medical CenterUrea nitrogen [Mass/volume] in Serum or PlasmaOrdered By: João Powell on 03-13-2024 Urea nitrogen [Mass/Vol]18 mg/dLNormalSt. Mary'S Medical Center Comment on above:Performed By: #### CMP, PHOS, CBC, MG ####[address] [address] USAUrea nitrogen [Mass/Vol]Urea nitrogen [Mass/volume] in Serum or Plasma12-27[facility] WBC Auto (Bld) [#/Vol]Ordered By: João Powell on 36-81-4961ZUJ (Bld) [#/Vol] Leukocytes [#/volume] in Blood by Automated count4.1-10.5FMarion HospitalComplete Blood Count Auto Diffon 22-77-1544Vhjfbpftw (Bld) [#/Vol] 0.0 10*3/uLNormal0.0-0.2The [facility] Physician GroupComment on above:Result Comment: PERFORMED BY:[address] [place], [place] [phone] MEDICAL DIRECTORCLIFFORD LOBATO M.D.Performed By: #### CBC, CMP, PHOS, MG ####[address] [place] [address] USABasophils/100 WBC (Bld)0.8 %Normal.The [facility] Physician GroupComment on above:Performed By: #### CBC, CMP, PHOS, MG ####[place] [address] [place] Eosinophils (Bld) [#/Vol]0.1 10*3/uLNormal0.0-0.45The [facility] Comment on above:Performed By: #### CBC, CMP, PHOS, MG ####[place] [address] USAEosinophils/100 WBC (Bld)1.7 % Normal.The [facility] Physician GroupComment on above:Performed By: #### CBC, CMP, PHOS, MG ####[place] [address] USAErythrocyte distribution width (RBC) [Ratio]24.0 %High12.0-14.8The [facility] Physician GroupComment on above:Performed By: #### CBC, CMP, PHOS, MG ####[address] Hematocrit (Bld) [Volume fraction]28.0 %Low38.8-50.0The [facility] Physician GroupComment on above:Performed By: #### CBC, CMP, PHOS, MG ####[place] [address] USAHemoglobin (Bld) [Mass/Vol]9.0 g/dLLow13.0-17.0The [facility] Physician GroupComment on above: Performed By: #### CBC, CMP, PHOS, MG ####[place] [address] USALymphocytes (Bld) [#/Vol]0.7 10*3/uLLow 1.00-4.8The [facility] Physician GroupComment on above:Performed By: #### CBC, CMP, PHOS, MG ####[place] [address] USALymphocytes/100 WBC (Bld)12.6 %Normal.The [facility] Comment on above:Performed By: #### CBC, CMP, PHOS, MG ####[place] [address] USAMCH (RBC) [Entitic mass]23.1 pgLow27.5-35.2The [facility] Physician GroupComment on above:Performed By: #### CBC, CMP, PHOS, MG ####[address] (RBC) [Entitic vol]72.1 fLLow83.5-101The [facility] Physician GroupComment on above:Performed By: #### CBC, CMP, PHOS, MG ####[place] [address] USAMean Corpuscular HGB Conc32.1 g/dLLow32.5-35.6The [facility] Physician GroupComment on above:Performed By: #### CBC, CMP, PHOS, MG ####[place] [address] USAMonocytes (Bld) [#/Vol]1.0 10*3/uLHigh0.0-0.8The [facility] Physician GroupComment on above:Performed By: #### CBC, CMP, PHOS, MG ####[place] [address] [place] Monocytes/100 WBC (Bld)16.2 %Normal.The [facility] Physician GroupComment on above:Performed By: #### CBC, CMP, PHOS, MG ####[place] [address] USANeutrophils (Bld) [#/Vol]4.0 10*3/uL Normal1.8-7.7The [facility] Physician GroupComment on above:Performed By: #### CBC, CMP, PHOS, MG ####[place] [address] USANeutrophils/100 WBC (Bld)68.7 %Normal.The [facility] Comment on above:Performed By: #### CBC, CMP, PHOS, MG ####[place] [address] USANRBC%0.1 /100{WBC}Normal0-0.5 The [facility] Physician GroupComment on above:Performed By: #### CBC, CMP, PHOS, MG ####[address] Platelet mean volume (Bld) [Entitic vol]8.8 fLNormal6.6-10.1The [facility] Physician GroupComment on above:Performed By: #### CBC, CMP, PHOS, MG ####[address] Platelets (Bld) [#/Vol]191 10*3/zNIibovl666-118Ehx [facility] Comment on above:Performed By: #### CBC, CMP, PHOS, MG ####[place] [address] USARBC (Bld) [#/Vol]3.89 10*6/uL Low3.90-5.60The [facility] Physician GroupComment on above:Performed By: #### CBC, CMP, PHOS, MG ####[place] [address] USAWBC (Bld) [#/Vol]5.9 10*3/uLNormal4.1-10.5The [facility] Physician GroupComment on above:Performed By: #### CBC, CMP, PHOS, MG ####[address]Comprehensive Metabolic Panelon 58-28-6927Tivritb [Mass/Vol]3.5 g/dLNormal3.5-5.7The [facility] Physician GroupComment on above:Performed By: #### CBC, CMP, PHOS, MG ####[address] Albumin/Globulin [Mass ratio]0.9 {ratio}NormalThe [facility] Physician [facility] Comment on above:Performed By: #### CBC, CMP, PHOS, MG ####[place] [address] USAALP [Catalytic activity/Vol] 328 U/CCsxd58-946Zih [facility] Physician GroupComment on above:Performed By: #### CBC, CMP, PHOS, MG ####[address] [address] USAALT [Catalytic activity/Vol]46 U/LNormal7-52The [facility] Physician GroupComment on above:Performed By: #### CBC, CMP, PHOS, MG ####[phone] USAAnion gap [Moles/Vol]14.2 mmol/LNormal6.0-15.0The [facility] Physician GroupComment on above:Performed By: #### CBC, CMP, PHOS, MG ####[address] USAAST [Catalytic activity/Vol]34 U/L Rrzrsc98-95Plh [facility] Physician GroupComment on above:Performed By: #### CBC, CMP, PHOS, MG ####[address] USABilirubin [Mass/Vol]1.0 mg/dLNormal0.3-1.0The [facility] Comment on above:Performed By: #### CBC, CMP, PHOS, MG ####[place] [address] USACalcium [Mass/Vol]9.1 mg/dL Normal8.6-10.3The [facility] Physician GroupComment on above:Performed By: #### CBC, CMP, PHOS, MG ####[address] USAChloride [Moles/Vol]104 mmol/BZjnalb08-842Ihu [facility] Physician GroupComment on above:Performed By: #### CBC, CMP, PHOS, MG ####[address] USACO2 [Moles/Vol]21.7 mmol/EGslrmb45.0-31.0The [facility] Physician GroupComment on above:Performed By: #### CBC, CMP, PHOS, MG ####[address] [place] [address] USACreatinine [Mass/Vol]1.46 mg/dLHigh0.70-1.30The [facility] Physician GroupComment on above:Performed By: #### CBC, CMP, PHOS, MG ####[address] [place] [id number] [place] Creatinine Clr Calc Kfrajizt63.74NoPsychiatric hospital Physician GroupComment on above:Performed By: #### CBC, CMP, PHOS, MG ####[place] USAGFR/1.73 sq M.predicted MDRD (S/P/Bld) [Vol rate/Area]55.398 mL/min/{1.73_m2}NormalThe [facility] Group Comment on above:Performed By: #### CBC, CMP, PHOS, MG ####[place] [address] USAGlobulin (S) [Mass/Vol]3.7 g/dLNoPsychiatric hospital Physician GroupComment on above:Performed By: #### CBC, CMP, PHOS, MG ####[place] [address] USAGlucose [Mass/Vol]167 mg/wDZyol12-223Dlu [facility] Comment on above:Result Comment: Random Glucose Reference Range is dependent on time and content of last meal. Glucose of more than 200 mg/dL in a nonstressed, ambulatory subject supports the diagnosis of Diabetes Mellitus. ADA recommended reference rangePerformed By: #### CBC, CMP, PHOS, MG ####[id number] USAPotassium [Moles/Vol]3.9 mmol/LNormal3.5-5.1The [facility] Physician GroupComment on above:Performed By: #### CBC, CMP, PHOS, MG ####[place] [address] USAProtein [Mass/Vol]7.2 g/dLNormal6.4-8.9The [facility] Physician GroupComment on above:Performed By: #### CBC, CMP, PHOS, MG ####[facility] [place] [address] USASodium [Moles/Vol]136 mmol/WShjlnn723-130Jfr [facility] Physician GroupComment on above: Performed By: #### CBC, CMP, PHOS, MG ####[facility] [place] [address] USAUrea nitrogen [Mass/Vol]19 mg/dLNormalFranklin County Medical Center Physician GroupComment on above:Performed By: #### CBC, CMP, PHOS, MG ####[facility] [place] [address] USAGlucose Poct Glucometerson 37-68-4848Mirjoaq [Mass/Vol]174 mg/dLNoPsychiatric hospital Physician GroupComment on above:Result Comment: Random Glucose Reference Range is dependent on time and content of last meal. Glucose of more than 200 mg/dL in a nonstressed, ambulatory subject supports the diagnosis of Diabetes Evelyn litus.PERFORMED BY:[address] [place], [place] [phone] MEDICAL DIRECTORCLIFFORD LOBATO M.D.Performed By: #### GLULS ####Point of Care testing,Glucose [Mass/Vol]216 mg/dLPalm Beach Gardens Medical Center Physician GroupComment on above:Result Comment: Random Glucose Reference Range is dependent on time and content of last meal. Glucose of more than 200 mg/dL in a nonstressed, ambulatory subject supports the diagnosis of Diabetes Evelyn litus.PERFORMED BY:[address] [place], [place] [phone] MEDICAL DIRECTORCLIFFORD LOBATO M.D.Performed By: #### GLULS ####Point of Care testing,Glucose [Mass/Vol]230 mg/dLPalm Beach Gardens Medical Center Physician GroupComment on above:Result Comment: Random Glucose Reference Range is dependent on time and content of last meal. Glucose of more than 200 mg/dL in a nonstressed, ambulatory subject supports the diagnosis of Diabetes Evelyn litus.PERFORMED BY:[address] [place], [place] [phone] MEDICAL DIRECTORCLIFFORD LOBATO M.D.Performed By: #### GLULS ####Point of Care testing,Glucose [Mass/Vol]179 mg/dLNormalThe [facility] Physician GroupComment on above:Result Comment: Random Glucose Reference Range is dependent on time and content of last meal. Glucose of more than 200 mg/dL in a nonstressed, ambulatory subject supports the diagnosis of Diabetes Evelyn litus.PERFORMED BY:[address] AVDarrianMaryCHAL[place], [place] [phone] MEDICAL DIRECTORCLIFFORD LOBATO M.D.Performed By: #### GLULS ####Point of Care testing,Magnesiumon 70-91-1105Phwvjavdx [Mass/Vol]2.0 mg/dLNormal1.9-2.7The [facility] Physician GroupComment on above:Result Comment: PERFORMED BY:[address] [address] [address]DEN[address] SIMONSCHALINOMES[place], [place] [phone] MEDICAL BRISA LOBATO M.D.Performed By: #### CBC, CMP, PHOS, MG ####[address] [address] [facility] HOSPITALPhosphoruson 61-89-0131Jsqshgdll [Mass/Vol]2.5 mg/dLNormal2.5-4.5The [facility] Physician GroupComment on above:Performed By: #### CBC, CMP, PHOS, MG ####[address] Complete Blood Count Auto Diffon 28-11-2068Vrrwsrtdg (Bld) [#/Vol]0.1 10*3/uL Normal0.0-0.2The [facility] Physician GroupComment on above:Result Comment: PERFORMED BY:[address] [address] [address] GILMANItzelCHALINOMESQUITE, [place] [phone] MEDICAL BRISA LOBATO M.D.Performed By: #### CBC, MG, PHOS, CMP ####[place] [address] USABasophils/100 WBC (Bld)0.6 %Normal.The [facility] Comment on above:Performed By: #### CBC, MG, PHOS, CMP ####[place] [address] USAEosinophils (Bld) [#/Vol]0.2 10*3/uLNormal0.0-0.45The [facility] Physician GroupComment on above:Performed By: #### CBC, MG, PHOS, CMP ####[place] [address] USAEosinophils/100 WBC (Bld)2.7 %Normal.The [facility] Physician GroupComment on above:Performed By: #### CBC, MG, PHOS, CMP ####[place] [address] [place] Erythrocyte distribution width (RBC) [Ratio]24.0 %High12.0-14.8The [facility] Physician GroupComment on above:Performed By: #### CBC, MG, PHOS, CMP ####[place] [address] [place] Hematocrit (Bld) [Volume fraction]27.6 %Low38.8-50.0The [facility] Physician GroupComment on above:Performed By: #### CBC, MG, PHOS, CMP ####[place] [address] USAHemoglobin (Bld) [Mass/Vol]8.8 g/dLLow13.0-17.0The [facility] Physician GroupComment on above: Performed By: #### CBC, MG, PHOS, CMP ####[place] [address] USALymphocytes (Bld) [#/Vol]0.5 10*3/uLLow 1.00-4.8The [facility] Physician GroupComment on above:Performed By: #### CBC, MG, PHOS, CMP ####[place] [address] USALymphocytes/100 WBC (Bld)5.3 %Normal.The [facility] Comment on above:Performed By: #### CBC, MG, PHOS, CMP ####[address] (RBC) [Entitic mass]23.1 pgLow27.5-35.2The [facility] Physician GroupComment on above:Performed By: #### CBC, MG, PHOS, CMP ####[address] (RBC) [Entitic vol]72.1 fLLow83.5-101The [facility] Physician GroupComment on above:Performed By: #### CBC, MG, PHOS, CMP ####[place] [address] USAMean Corpuscular HGB Conc32.0 g/dLLow32.5-35.6The [facility] Physician GroupComment on above:Performed By: #### CBC, MG, PHOS, CMP ####[place] [address] USAMonocytes (Bld) [#/Vol]0.9 10*3/uLHigh0.0-0.8The [facility] Physician GroupComment on above:Performed By: #### CBC, MG, PHOS, CMP ####[place] [address] [place] Monocytes/100 WBC (Bld)10.5 %Normal.The [facility] Physician GroupComment on above:Performed By: #### CBC, MG, PHOS, CMP ####[place] [address] USANeutrophils (Bld) [#/Vol]7.3 10*3/uL Normal1.8-7.7The [facility] Physician GroupComment on above:Performed By: #### CBC, MG, PHOS, CMP ####[place] [address] USANeutrophils/100 WBC (Bld)80.9 %Normal.The [facility] Comment on above:Performed By: #### CBC, MG, PHOS, CMP ####[place] [address] USANRBC%0.0 /100{WBC}Normal0-0.5 The [facility] Physician GroupComment on above:Performed By: #### CBC, MG, PHOS, CMP ####[address] Platelet mean volume (Bld) [Entitic vol]8.8 fLNormal6.6-10.1The [facility] Physician GroupComment on above:Performed By: #### CBC, MG, PHOS, CMP ####[address] Platelets (Bld) [#/Vol]201 10*3/jNArnuty284-869Pab [facility] Physician [facility] Comment on above:Performed By: #### CBC, MG, PHOS, CMP ####[place] [address] USARBC (Bld) [#/Vol]3.83 10*6/uL Low3.90-5.60[facility] Physician GroupComment on above:Performed By: #### CBC, MG, PHOS, CMP ####[place] [address] USAWBC (Bld) [#/Vol]9.0 10*3/uLNormal4.1-10.5The [facility] Physician GroupComment on above:Performed By: #### CBC, MG, PHOS, CMP ####[address] StreetComprehensive Metabolic Panelon [id number] [Mass/Vol]3.5 g/dLNormal3.5-5.7The [facility] Physician GroupComment on above:Performed By: #### CBC, MG, PHOS, CMP ####[address] Albumin/Globulin [Mass ratio]0.9 {ratio}NormalThe [facility] Comment on above:Performed By: #### CBC, MG, PHOS, CMP ####[address] [place] [address] USAALP [Catalytic activity/Vol] 367 U/PDlnq11-847Cvv [facility] Physician GroupComment on above:Performed By: #### CBC, MG, PHOS, CMP ####[address] [place] [address] USAALT [Catalytic activity/Vol]59 U/LHigh7-52The [facility] Physician GroupComment on above:Performed By: #### CBC, MG, PHOS, CMP ####[address] [address] USAAnion gap [Moles/Vol]12.6 mmol/LNormal6.0-15.0The [facility] Physician GroupComment on above:Performed By: #### CBC, MG, PHOS, CMP ####[address] [address] USAAST [Catalytic activity/Vol]52 U/LHigh 13-39The [facility] Physician GroupComment on above:Performed By: #### CBC, MG, PHOS, CMP ####[address] [address] USABilirubin [Mass/Vol]1.5 mg/dLHigh0.3-1.0The [facility] Physician GroupComment on above:Result Comment: Samples from patients who have taken Naproxen have shown spurious elevation in Total Bilirubin levels. A metabolite of Naproxen, O- desmethylnaproxen, has been shown to interfere with the Jengeovanniik-Grojennifer method for measuring Total Bilirubin.Performed By: #### CBC, MG, PHOS, CMP ####[address] [address] USACalcium [Mass/Vol]8.8 mg/dLNormal8.6-10.3The [facility] Physician GroupComment on above: Performed By: #### CBC, MG, PHOS, CMP ####[address] [address] USAChloride [Moles/Vol]104 mmol/DGwlxot62-371Euu [facility] Physician GroupComment on above:Performed By: #### CBC, MG, PHOS, CMP ####[address] [place] [address] USACO2 [Moles/Vol]23.0 mmol/FHmielb30.0-31.0The [facility] Physician GroupComment on above:Performed By: #### CBC, MG, PHOS, CMP ####[place] [address] USACreatinine [Mass/Vol]1.70 mg/dLHigh 0.70-1.30The [facility] Physician GroupComment on above:Performed By: #### CBC, MG, PHOS, CMP ####[place] [address] USACreatinine Clr Calc Xlyzsxmi70.45NoPsychiatric hospital Physician Group Comment on above:Performed By: #### CBC, MG, PHOS, CMP ####[place] [address] USAGFR/1.73 sq M.predicted MDRD (S/P/Bld) [Vol rate/Area]46.151 mL/min/{1.73_m2}NormalThe [facility] Physician GroupComment on above:Performed By: #### CBC, MG, PHOS, CMP ####[place] [address] USAGlobulin (S) [Mass/Vol]3.7 g/dLNoPsychiatric hospital Physician [facility] HospitalComment on above:Performed By: #### CBC, MG, PHOS, CMP ####[phone] USAGlucose [Mass/Vol]150 mg/cOIbed43-060Hnj [facility] Physician GroupComment on above:Result Comment: Random Glucose Reference Range is dependent on time and content of last meal. Glucose of more than 200 mg/dL in a nonstressed, ambulatory subject supports the diagnosis of Diabetes Mellitus. ADA recommended reference rangePerformed By: #### CBC, MG, PHOS, CMP ####[address] [place] [address] [place] Potassium [Moles/Vol]3.6 mmol/LNormal3.5-5.1The [facility] Physician GroupComment on above:Performed By: #### CBC, MG, PHOS, CMP ####[address] [address] USAProtein [Mass/Vol]7.2 g/dLNormal 6.4-8.9The [facility] Physician GroupComment on above:Performed By: #### CBC, MG, PHOS, CMP ####[address] [address] USASodium [Moles/Vol]136 mmol/NWbffvm926-902Rkp [facility] Comment on above:Performed By: #### CBC, MG, PHOS, CMP ####[address] USAUrea nitrogen [Mass/Vol]17 mg/dLNormal7-25The [facility] Physician GroupComment on above:Performed By: #### CBC, MG, PHOS, CMP ####[address] [address] USAGlucose Poct Glucometerson 47-00-0221Hzyxtqw [Mass/Vol]193 mg/dL NormalThe [facility] Physician [facility] HospitalComment on above:Result Comment: Random Glucose Reference Range is dependent on time and content of last meal. Glucose of more than 200 mg/dL in a nonstressed, ambulatory subject supports the diagnosis of Diabetes Mellitus.PERFORMED BY:[address] [place], [place] [phone] MEDICAL DIRECTORCLIFFORD LOBATO M.D.Performed By: #### GLULS ####Point of Care testing, Wislebq3Flx9: Cleaned MeterNormHCA Florida Englewood Hospital Physician GroupComment on above: Result Comment: PERFORMED BY:[address] [place], [place] [phone] MEDICAL DIRECTORCLIFFORD LOBATO M.D. Performed By: #### GLULS ####Point of Care testing,Glucose [Mass/Vol]156 mg/dL NormalThe [facility] Physician GroupComment on above:Result Comment: Random Glucose Reference Range is dependent on time and content of last meal. Glucose of more than 200 mg/dL in a nonstressed, ambulatory subject supports the diagnosis of Diabetes Mellitus.Performed By: #### GLULS ####Point of Care testing,Wqjikdc1Wha6: Cleaned MeterNormHCA Florida Englewood Hospital Physician GroupComment on above:Result Comment: PERFORMED BY:[address] LINMaryCHALINO, [place] [phone] MEDICAL DIRECTORCLIFFORD LOBATO M.D. Performed By: #### GLULS ####Point of Care testing,Glucose [Mass/Vol]185 mg/dL NormalThe [facility] Physician GroupComment on above:Result Comment: Random Glucose Reference Range is dependent on time and content of last meal. Glucose of more than 200 mg/dL in a nonstressed, ambulatory subject supports the diagnosis of Diabetes Mellitus.Performed By: #### GLULS ####Point of Care testing,Glucose [Mass/Vol]178 mg/dLPalm Beach Gardens Medical Center Physician GroupComment on above:Result Comment: Random Glucose Reference Range is dependent on time and content of last meal. Glucose of more than 200 mg/dL in a nonstressed, ambulatory subject supports the diagnosis of Diabetes Mellitus.PERFORMED BY:[address] MUKULDarrianMaryWESTON, [place] [phone] MEDICAL DIRECTORCLIFFORD LOBATO M.D.Performed By: #### GLULS ####Point of Care testing,Hep C Ab wRfx to Qnt PCRon 15-03-8175Ygfoinziq C Virus AntibodyNon-ReactiveNormalNon ReactiveThe [facility] Comment on above:Performed By: #### HCV RX PCR ####[facility] , Interpretation Hepatitis CCommentNormal.The [facility] Physician GroupComment on above:Result Comment: Not infected with HCV unless early or acute infection is suspected (which may be delayed in an immunocompromised individual), or other evidence exists to indicate HCV infection. Performed at: [facility] [place], [place] [id number] Lumber Yard Worker: Uriel Borrero PhD, Phone: [phone] BY:[address] ARACELIMaryWESTON, [place] [phone] MEDICAL DIRECTORCLIFFORD LOBATO M.D. Performed By: #### HCV RX PCR ####[facility] ,Hepatitis C virus IgG Ab [Presence] in Serum or Plasma by ImmunoassayOrdered By: Mike Burleson on 40-47-8112UGM IgG IA QlNon-ReactiveNon ReactiveSt. Mary'S Medical Center HCV IgG IA QlHepatitis C virus IgG Ab [Presence] in Serum or Plasma by ImmunoassayNon ReactiveSt. Mary'S Medical CenterMR abdomen wo/w conon 13-87-9375IG abdomen wo/w conNormalThe [facility] Physician GroupMagnesiumon 35-61-7868Hvagizqka [Mass/Vol]1.8 mg/dLLow1.9-2.7The [facility] Comment on above:Result Comment: PERFORMED BY:[address] [place], [place] [phone] MEDICAL DIRECTORCLIFFORD LOBATO M.D.Performed By: #### CBC, MG, PHOS, CMP ####[address] [place] [address] USANo Panel Information Ordered By: João Powell on 65-78-3639Lzyxtbk Glucose CommentGlu2: cleaned meter [facility]S Medical CenterGlu2: cleaned meterSt. Mary'S Medical CenterNo Panel InformationOrdered By: Mike Burleson on 32-62-0639Cnifslrso C InterpretationComment.St. Mary'S Medical CenterComment on above:Not infected with HCV unless early or acute infection issuspected (which may be delayed in an immunocompromisedindividual), or other evidence exists to indicate HCVinfection.Performed at: - [facility] [address] [place], [place] [id number] Director: Uriel Borrero PhD, Phone: [phone].St. Mary'S Medical CenterPhosphoruson 76-75-2807Wlllvppdf [Mass/Vol]3.4 mg/dL Normal2.5-4.5The [facility] Physician GroupComment on above:Performed By: #### CBC, MG, PHOS, CMP ####[address] [address] USAUS liveron 90-39-6813KE [facility] Physician [facility] Complete Blood Count Auto Diffon 60-31-0572Hclohzsat (Bld) [#/Vol]0.0 10*3/uL Normal0.0-0.2The [facility] Physician [facility] HospitalComment on above:Result Comment: PERFORMED BY:[address]DarrianCHALINO, [place] [phone] MEDICAL DIRECTORCLIFFORD LOBATO M.D.Performed By: #### CMP, MG, PHOS, GGT, CBC ####[address] USABasophils/100 WBC (Bld)0.3 %Normal.The [facility] Physician GroupComment on above:Performed By: #### CMP, MG, PHOS, GGT, CBC ####[address] [place] Eosinophils (Bld) [#/Vol]0.1 10*3/uLNormal0.0-0.45The [facility] Comment on above:Performed By: #### CMP, MG, PHOS, GGT, CBC ####[address] USAEosinophils/100 WBC (Bld)0.8 %Normal.The [facility] Physician [facility] HospitalComment on above:Performed By: #### CMP, MG, PHOS, GGT, CBC ####[address] USAErythrocyte distribution width (RBC) [Ratio]23.4 % High12.0-14.8The [facility] Physician GroupComment on above:Performed By: #### CMP, MG, PHOS, GGT, CBC ####[address] USAHematocrit (Bld) [Volume fraction]25.8 %Low38.8-50.0 The [facility] Physician GroupComment on above:Performed By: #### CMP, MG, PHOS, GGT, CBC ####[place] [address] USAHemoglobin (Bld) [Mass/Vol]8.4 g/dLLow13.0-17.0The [facility] Comment on above:Performed By: #### CMP, MG, PHOS, GGT, CBC ####[place] [address] USALymphocytes (Bld) [#/Vol]0.7 10*3/uLLow1.00-4.8The [facility] Physician GroupComment on above: Performed By: #### CMP, MG, PHOS, GGT, CBC ####[place] [address] USALymphocytes/100 WBC (Bld)4.9 %Normal. The [facility] Physician GroupComment on above:Performed By: #### CMP, MG, PHOS, GGT, CBC ####[address]H (RBC) [Entitic mass]23.1 pgLow27.5-35.2The [facility] Comment on above:Performed By: #### CMP, MG, PHOS, GGT, CBC ####[address]V (RBC) [Entitic vol]71.2 fLLow83.5-101The [facility] Physician GroupComment on above:Performed By: #### CMP, MG, PHOS, GGT, CBC ####[place] [address] USAMean Corpuscular HGB Conc32.5 g/qUYfeifk88.5-35.6The [facility] Physician GroupComment on above:Performed By: #### CMP, MG, PHOS, GGT, CBC ####[place] [address] [place] Monocytes (Bld) [#/Vol]1.5 10*3/uLHigh0.0-0.8The [facility] Comment on above:Performed By: #### CMP, MG, PHOS, GGT, CBC ####[place] [address] USAMonocytes/100 WBC (Bld)10.6 %Normal.The [facility] Physician GroupComment on above:Performed By: #### CMP, MG, PHOS, GGT, CBC ####[place] [address] USANeutrophils (Bld) [#/Vol]11.4 10*3/uLHigh1.8-7.7The [facility] Physician GroupComment on above:Performed By: #### CMP, MG, PHOS, GGT, CBC ####[address] Neutrophils/100 WBC (Bld)83.4 %Normal.The [facility] Physician GroupComment on above:Performed By: #### CMP, MG, PHOS, GGT, CBC ####[place] [address] USANRBC%0.2 /100{WBC}Normal0-0.5The [facility] Physician GroupComment on above:Performed By: #### CMP, MG, PHOS, GGT, CBC ####[address] Platelet mean volume (Bld) [Entitic vol]8.9 fLNormal6.6-10.1The [facility] Physician GroupComment on above:Performed By: #### CMP, MG, PHOS, GGT, CBC ####[place] [address] [place] Platelets (Bld) [#/Vol]205 10*3/wNTtabcn082-547Xuf [facility] Comment on above:Performed By: #### CMP, MG, PHOS, GGT, CBC ####[place] [address] USARBC (Bld) [#/Vol]3.62 10*6/uLLow3.90-5.60The [facility] Physician GroupComment on above:Performed By: #### CMP, MG, PHOS, GGT, CBC ####[address] [address] USAWBC (Bld) [#/Vol]13.7 10*3/uLHigh4.1-10.5The [facility] Physician GroupComment on above:Performed By: #### CMP, MG, PHOS, GGT, CBC ####[address] [address] [facility] Comprehensive Metabolic Panelon 61-57-8212Cyviont [Mass/Vol]3.4 g/dLLow3.5-5.7 The [facility] Physician GroupComment on above:Performed By: #### CMP, MG, PHOS, GGT, CBC ####[place] [address] USAAlbumin/Globulin [Mass ratio]1.0 {ratio}NormalThe [facility] Comment on above:Performed By: #### CMP, MG, PHOS, GGT, CBC ####[address] [address] USAALP [Catalytic activity/Vol]426 U/TCynt70-734Xdx [facility] Physician GroupComment on above: Performed By: #### CMP, MG, PHOS, GGT, CBC ####[phone] USAALT [Catalytic activity/Vol]78 U/LHigh 7-52The [facility] Physician GroupComment on above:Performed By: #### CMP, MG, PHOS, GGT, CBC ####[address] [address] USAAnion gap [Moles/Vol]14.5 mmol/LNormal6.0-15.0The [facility] Physician GroupComment on above:Performed By: #### CMP, MG, PHOS, GGT, CBC ####[phone] USAAST [Catalytic activity/Vol]92 U/VEwws09-94Zzt [facility]ician [facility] HospitalComment on above: Performed By: #### CMP, MG, PHOS, GGT, CBC ####[place] [address] USABilirubin [Mass/Vol]2.2 mg/dLHigh 0.3-1.0The [facility]ician [facility] HospitalComment on above:Result Comment: Samples from patients who have taken Naproxen have shown spurious elevation in Total Bilirubin levels. A metabolite of Naproxen, O-desmethylnaproxen, has been shown to interfere with the Jendrannaleeik-Grof method for measuring Total Bilirubin. Performed By: #### CMP, MG, PHOS, GGT, CBC ####[place] [address] USACalcium [Mass/Vol]8.3 mg/dLLow8.6-10.3 The [facility] Physician GroupComment on above:Performed By: #### CMP, MG, PHOS, GGT, CBC ####[place] [address] USAChloride [Moles/Vol]102 mmol/GOpwwwr59-675Qdl [facility] Comment on above:Performed By: #### CMP, MG, PHOS, GGT, CBC ####[place] [address] USACO2 [Moles/Vol]21.8 mmol/XZiokmu09.0-31.0The [facility] Physician GroupComment on above:Performed By: #### CMP, MG, PHOS, GGT, CBC ####[place] [address] USACreatinine [Mass/Vol]1.81 mg/dLHigh0.70-1.30The [facility] Physician GroupComment on above:Performed By: #### CMP, MG, PHOS, GGT, CBC ####[place] [address] [place] Creatinine Clr Calc Fshfecme10.38NormHolzer Health Systeme [facility] Physician GroupComment on above:Performed By: #### CMP, MG, PHOS, GGT, CBC ####[place] [address] USAGFR/1.73 sq M.predicted MDRD (S/P/Bld) [Vol rate/Area]42.806 mL/min/{1.73_m2}NormalThe [facility] Comment on above:Performed By: #### CMP, MG, PHOS, GGT, CBC ####[place] [address] USAGlobulin (S) [Mass/Vol]3.3 g/dLNormalThe [facility] Physician GroupComment on above:Performed By: #### CMP, MG, PHOS, GGT, CBC ####[place] [address] USAGlucose [Mass/Vol]141 mg/dEDwnq58-580Oru [facility] Physician GroupComment on above:Result Comment: Random Glucose Reference Range is dependent on time and content of last meal. Glucose of more than 200 mg/dL in a nonstressed, ambulatory subject supports the diagnosis of Diabetes Mellitus. ADA recommended reference rangePerformed By: #### CMP, MG, PHOS, GGT, CBC ####[place] [address] [place] Potassium [Moles/Vol]3.3 mmol/LLow3.5-5.1The [facility] Physician GroupComment on above:Performed By: #### CMP, MG, PHOS, GGT, CBC ####[place] [address] USAProtein [Mass/Vol]6.7 g/dLNormal 6.4-8.9The [facility] Physician GroupComment on above:Performed By: #### CMP, MG, PHOS, GGT, CBC ####[place] [address] USASodium [Moles/Vol]135 mmol/LSignificant change qjjf750-209Fqk [facility] Physician GroupComment on above:Performed By: #### CMP, MG, PHOS, GGT, CBC ####[place] [address] USAUrea nitrogen [Mass/Vol]16 mg/dLNormal7-25The [facility] Centerlands Physician GroupComment on above:Performed By: #### CMP, MG, PHOS, GGT, CBC ####[address] [address] USAGamma Glutamyl Transpeptidaseon 17-72-2074Qnvvxpk [Catalytic activity/Vol]176 U/LHighMayo Clinic Florida Physician GroupComment on above:Result Comment: PERFORMED BY:[address] [place]Mary[place], [place] [phone] MEDICAL DIRECTORCLIFFORD LOBATO M.D.Performed By: #### CMP, MG, PHOS, GGT, CBC ####[address] [address] USAGamma glutamyl transferase [Enzymatic activity/volume] in Serum or PlasmaOrdered By: João Powell on 07-37-7130Cyzll glutamyl transferase [Catalytic activity/Vol]176 U/LHigh St. Mary'S Medical CenterGamma glutamyl transferase [Catalytic activity/Vol]Gamma glutamyl transferase [Enzymatic activity/volume] in Serum or PlasmaTeays Valley Cancer CenterSt. Mary'S Medical CenterGlucose Poct Glucometerson 66-84-6949Fyfvdcb1Fcn2: Cleaned [facility] Physician [facility] HospitalComment on above:Result Comment: PERFORMED BY:[address] LINMaryCHAL[place]OMES[place], [place] [phone] MEDICAL DIRECTORCLIFFORD LOBATO M.D.Performed By: #### GLULS ####Point of Care testing,Glucose [Mass/Vol]133 mg/dLPalm Beach Gardens Medical Center Physician GroupComment on above:Result Comment: Random Glucose Reference Range is dependent on time and content of last meal. Glucose of more than 200 mg/dL in a nonstressed, ambulatory subject supports the diagnosis of Diabetes Mellitus.Performed By: #### GLULS ####Point of Care testing,Qrsqicy6Zts5: Cleaned MeterPalm Beach Gardens Medical Center Physician GroupComment on above:Result Comment: PERFORMED BY:[address] [place], [place] [phone] MEDICAL DIRECTORCLIFFORD LOBATO M.D. Performed By: #### GLULS ####Point of Care testing,Glucose [Mass/Vol]294 mg/dL NormalMayo Clinic Florida Physician GroupComment on above:Result Comment: Random Glucose Reference Range is dependent on time and content of last meal. Glucose of more than 200 mg/dL in a nonstressed, ambulatory subject supports the diagnosis of Diabetes Mellitus.Performed By: #### GLULS ####Point of Care testing,Glucose [Mass/Vol]352 mg/dLNoPsychiatric hospital Physician GroupComment on above:Result Comment: Random Glucose Reference Range is dependent on time and content of last meal. Glucose of more than 200 mg/dL in a nonstressed, ambulatory subject supports the diagnosis of Diabetes Mellitus.PERFORMED BY:[address] [place], [place] [phone] MEDICAL DIRECTORCLIFFORD LOBATO M.D.Performed By: #### GLULS ####Point of Care testing,Glucose [Mass/Vol]174 mg/dLNoPsychiatric hospital Physician GroupComment on above:Result Comment: Random Glucose Reference Range is dependent on time and content of last meal. Glucose of more than 200 mg/dL in a nonstressed, ambulatory subject supports the diagnosis of Diabetes Evelyn litus.PERFORMED BY:[address] [place], [place] [phone] MEDICAL BRISA LOBATO M.D.Performed By: #### GLULS ####Point of Care testing,Magnesiumon 97-57-3599Aypoqsqnh [Mass/Vol]1.4 mg/dLLow1.9-2.7The [facility] Physician GroupComment on above:Result Comment: PERFORMED BY:[address] [place], [place] [phone] MEDICAL BRISA LOBATO M.D.Performed By: #### CMP, MG, PHOS, GGT, CBC ####[address] [place] [address] BIEV-vsqgcm-R-Aspartate IgG, Seron 03-10-2024 A-aiuqbu-MTwpmatwrh IgG, SerumNegativeNormalNegativeThe [facility] Physician GroupComment on above:Result Comment: This test was developed and its performance characteristics determined by [facility]. It has not been cleared or approved by the Food and Drug Administration. The [facility]-sponsored ExTINGUISH Trial (activity and safety of Inebilizumab in anti-NMDAR encephalitis) is actively recruiting patients. You may consider enrolling your patient in the clinical trial if the result of this test is positive. To learn more, or to refer your patient, call 024- 1MIDCV6 ([phone], study hotline) or see ClinicalTrials.gov (study ID, [id number]). Performed at: [facility] [id number] Lumber Yard Worker: Chrissy Wong MD, Phone: [phone] BY:[address] [place], [place] [phone] MEDICAL DIRECTORCLIFFORD LOBATO M.D.Performed By: #### NMDA IGG SERUM ####[facility] ,No Panel InformationOrdered By: Job James on 85-19-4488W-Kqvoqa-Q-Mkpabjcbc Recept IgG AbNegativeNegSelect Medical OhioHealth Rehabilitation Hospital - DublinComment on above:This test was developed and its performance characteristicsdetermined by [employer]. It has not been cleared orapproved by the Food and Drug Administration.The [facility]- sponsored ExTINGUISH Trial (activity and safety ofInebilizumab in anti-NMDAR encephalitis) is activelyrecruiting patients. You may consider enrolling yourpatient in the clinical trial if the result of this test ispositive. To learn more, or to refer your patient, call 736-3FWENF3 ([phone], study hotline) or seeinicalTrials.gov (study ID, [id number]).Performed at: [employer] [address] [id number] Director: Chrissy Wong MD, Phone: [phone]gKettering Health Main Campus Phosphoruson 69-26-3135Flbaxmjpt [Mass/Vol]3.1 mg/dLNormal2.5-4.5The [facility] Physician GroupComment on above:Performed By: #### CMP, MG, PHOS, GGT, CBC ####[address] Complete Blood Count Auto Diffon 96-83-4428Wvtausefj (Bld) [#/Vol]0.1 10*3/uL Normal0.0-0.2The [facility] Physician GroupComment on above:Result Comment: PERFORMED BY:[address]DarrianCH[place], [place] [phone] MEDICAL DIRECTORCLIFFORD LOBATO M.D.Performed By: #### CBC, CMP, MG, PHOS ####[place] [address] USABasophils/100 WBC (Bld)1.2 %Normal.The [facility] Comment on above:Performed By: #### CBC, CMP, MG, PHOS ####[place] [address] USAEosinophils (Bld) [#/Vol]0.2 10*3/uLNormal0.0-0.45The [facility] Physician GroupComment on above:Performed By: #### CBC, CMP, MG, PHOS ####[place] [address] USAEosinophils/100 WBC (Bld)2.5 %Normal.The [facility] Physician GroupComment on above:Performed By: #### CBC, CMP, MG, PHOS ####[address] Erythrocyte distribution width (RBC) [Ratio]21.9 %High12.0-14.8The [facility] Physician GroupComment on above:Performed By: #### CBC, CMP, MG, PHOS ####[address] Hematocrit (Bld) [Volume fraction]27.8 %Low38.8-50.0The [facility] Physician GroupComment on above:Performed By: #### CBC, CMP, MG, PHOS ####[place] [address] USAHemoglobin (Bld) [Mass/Vol]8.9 g/dLLow13.0-17.0The [facility] Physician GroupComment on above: Performed By: #### CBC, CMP, MG, PHOS ####[place] [address] USALymphocytes (Bld) [#/Vol]1.8 10*3/uLNormal 1.00-4.8The [facility] Physician GroupComment on above:Performed By: #### CBC, CMP, MG, PHOS ####[place] [address] USALymphocytes/100 WBC (Bld)20.9 %Normal.The [facility] Comment on above:Performed By: #### CBC, CMP, MG, PHOS ####[address] StreetMCH (RBC) [Entitic mass]22.7 pgLow27.5-35.2The [facility] Physician GroupComment on above:Performed By: #### CBC, CMP, MG, PHOS ####[address] StreetMCV (RBC) [Entitic vol]70.7 fLLow83.5-101The [facility] Physician GroupComment on above:Performed By: #### CBC, CMP, MG, PHOS ####[place] [address] USAMean Corpuscular HGB Conc32.1 g/dLLow32.5-35.6The [facility] Physician GroupComment on above:Performed By: #### CBC, CMP, MG, PHOS ####[place] [address] USAMonocytes (Bld) [#/Vol]1.0 10*3/uLHigh0.0-0.8The [facility] Physician GroupComment on above:Performed By: #### CBC, CMP, MG, PHOS ####[address] Monocytes/100 WBC (Bld)10.9 %Normal.The [facility] Physician GroupComment on above:Performed By: #### CBC, CMP, MG, PHOS ####[place] [address] USANeutrophils (Bld) [#/Vol]5.6 10*3/uL Normal1.8-7.7The [facility] Physician GroupComment on above:Performed By: #### CBC, CMP, MG, PHOS ####[place] [address] USANeutrophils/100 WBC (Bld)64.5 %Normal.[facility] Comment on above:Performed By: #### CBC, CMP, MG, PHOS ####[place] [address] USANRBC%0.2 /100{WBC}Normal0-0.5 The [facility] Physician GroupComment on above:Performed By: #### CBC, CMP, MG, PHOS ####[address] Platelet mean volume (Bld) [Entitic vol]8.7 fLNormal6.6-10.1The [facility] Physician GroupComment on above:Performed By: #### CBC, CMP, MG, PHOS ####[place] [address] [place] Platelets (Bld) [#/Vol]265 10*3/aGKacrna303-822Ckb [facility] Comment on above:Performed By: #### CBC, CMP, MG, PHOS ####[place] [address] USARBC (Bld) [#/Vol]3.93 10*6/uL Normal3.90-5.60The [facility] Physician GroupComment on above:Performed By: #### CBC, CMP, MG, PHOS ####[place] [address] USAWBC (Bld) [#/Vol]8.8 10*3/uLNormal4.1-10.5The [facility] Physician GroupComment on above:Performed By: #### CBC, CMP, MG, PHOS ####[place] [address] USAComprehensive Metabolic Panelon 85-67-9701Lracjhf [Mass/Vol]3.5 g/dLNormal3.5-5.7The [facility] Physician GroupComment on above:Performed By: #### CBC, CMP, MG, PHOS ####[place] [address] [place] Albumin/Globulin [Mass ratio]1.0 {ratio}NormalThe [facility] Comment on above:Performed By: #### CBC, CMP, MG, PHOS ####[place] [address] USAALP [Catalytic activity/Vol] 110 U/LDino15-950Lou [facility] Physician GroupComment on above:Performed By: #### CBC, CMP, MG, PHOS ####[place] [address] USAALT [Catalytic activity/Vol]10 U/LNormal7-52The [facility] Physician GroupComment on above:Performed By: #### CBC, CMP, MG, PHOS ####[place] [address] USAAnion gap [Moles/Vol]14.9 mmol/LNormal6.0-15.0The [facility] Physician GroupComment on above:Performed By: #### CBC, CMP, MG, PHOS ####[place] [address] USAAST [Catalytic activity/Vol]14 U/L Ifjitf77-55Qnh [facility] Physician GroupComment on above:Performed By: #### CBC, CMP, MG, PHOS ####[place] [address] USABilirubin [Mass/Vol]0.5 mg/dLNormal0.3-1.0The [facility] Comment on above:Performed By: #### CBC, CMP, MG, PHOS ####[place] [address] USACalcium [Mass/Vol]9.0 mg/dL Normal8.6-10.3The [facility] Physician GroupComment on above:Performed By: #### CBC, CMP, MG, PHOS ####[place] [address] USAChloride [Moles/Vol]110 mmol/BWeze72-358Pmf [facility] Physician GroupComment on above:Performed By: #### CBC, CMP, MG, PHOS ####[place] [address] USACO2 [Moles/Vol]20.8 mmol/LLow21.0-31.0The [facility] Physician GroupComment on above:Performed By: #### CBC, CMP, MG, PHOS ####[place] [address] USACreatinine [Mass/Vol]1.80 mg/dLHigh0.70-1.30The [facility] Physician GroupComment on above:Performed By: #### CBC, CMP, MG, PHOS ####[place] [address] [place] Creatinine Clr Calc Hnzelzqv81.64NoPsychiatric hospital Physician GroupComment on above:Performed By: #### CBC, CMP, MG, PHOS ####[place] [id number] USAGFR/1.73 sq M.predicted MDRD (S/P/Bld) [Vol rate/Area]43.092 mL/min/{1.73_m2}NormalThe [facility] Comment on above:Performed By: #### CBC, CMP, MG, PHOS ####[place] [address] USAGlobulin (S) [Mass/Vol]3.5 g/dLNoPsychiatric hospital Physician GroupComment on above:Performed By: #### CBC, CMP, MG, PHOS ####[address] [address] USAGlucose [Mass/Vol]91 mg/vNOqwfpf94-536Kyu [facility] Comment on above:Result Comment: Random Glucose Reference Range is dependent on time and content of last meal. Glucose of more than 200 mg/dL in a nonstressed, ambulatory subject supports the diagnosis of Diabetes Mellitus. ADA recommended reference rangePerformed By: #### CBC, CMP, MG, PHOS ####[address] [place] [address] USAPotassium [Moles/Vol]3.7 mmol/LNormal3.5-5.1The [facility] Physician GroupComment on above:Performed By: #### CBC, CMP, MG, PHOS ####[address] [address] USAProtein [Mass/Vol]7.0 g/dLNormal6.4-8.9The [facility] Physician GroupComment on above:Performed By: #### CBC, CMP, MG, PHOS ####[address] [address] USASodium [Moles/Vol]142 mmol/RJbgvkg699-726Svr [facility] Physician GroupComment on above: Performed By: #### CBC, CMP, MG, PHOS ####[address] [address] USAUrea nitrogen [Mass/Vol]19 mg/dLNormal7-25The [facility] Physician GroupComment on above:Performed By: #### CBC, CMP, MG, PHOS ####[address] [address] USAGlucose Poct Glucometerson 84-54-9729Ocgqtyt [Mass/Vol]386 mg/dLNormalThe [facility] Physician GroupComment on above:Result Comment: Random Glucose Reference Range is dependent on time and content of last meal. Glucose of more than 200 mg/dL in a nonstressed, ambulatory subject supports the diagnosis of Diabetes Evelyn litus.PERFORMED BY:[address], [place] [phone] MEDICAL DIRECTORCLIFFORD LOBATO M.D.Performed By: #### GLULS ####Point of Care testing,Yizwimg0Xyh1: Cleaned MeterNoPsychiatric hospital Physician [facility] HospitalComment on above:Result Comment: PERFORMED BY:[place] [address] [place], [place] [phone] MEDICAL DIRECTORCLIFFORD LOBATO M.D.Performed By: #### GLULS ####Point of Care testing, Glucose [Mass/Vol]128 mg/dLPalm Beach Gardens Medical Center Physician GroupComment on above: Result Comment: Random Glucose Reference Range is dependent on time and content of last meal. Glucose of more than 200 mg/dL in a nonstressed, ambulatory subject supports the diagnosis of Diabetes Mellitus.Performed By: #### GLULS ####Point of Care testing,Glucose [Mass/Vol]119 mg/dLPalm Beach Gardens Medical Center Physician GroupComment on above:Result Comment: Random Glucose Reference Range is dependent on time and content of last meal. Glucose of more than 200 mg/dL in a nonstressed, ambulatory subject supports the diagnosis of Diabetes Evelyn litus.PERFORMED BY:[address] [place], [place] [phone] MEDICAL BRISA LOBATO M.D.Performed By: #### GLULS ####Point of Care testing,Magnesiumon 57-88-9360Qvdeoyboh [Mass/Vol]1.5 mg/dLLow1.9-2.7The [facility] Physician GroupComment on above:Result Comment: PERFORMED BY:[address] [address] [place], [place] [phone] MEDICAL DIRECTORCLIFFORD LOBATO M.D.Performed By: #### CBC, CMP, MG, PHOS ####[address] Narvaezatrium [place] [address] USAPhosphoruson 07-78-2642Dgvxtrgjo [Mass/Vol]3.1 mg/dLNormal2.5-4.5The [facility] Physician GroupComment on above:Performed By: #### CBC, CMP, MG, PHOS ####[facility] [address] [place] [address] USAUS renal BIon 97-50-4643DL renal BINormalThe [facility] Physician [facility] HospitalXR elbow LT 2Von 83-00-8597DR elbow LT 2VNormalThe [facility] Physician [facility] HospitalActivated partial thromboplastin time (aPTT) in platelet poor plasma by coagulation a Ordered By: Bonilla Rubin on 95-92-9001uTOL Coag (PPP) [Time]29.6 s25.1-36.5 [facility] Medical CenterComment on above:A hematocrit value greater than 55% may lead to inaccurate results in coagulation testing. Patientshaving hematocrit values >55% require a special collection tube for coagulation studies. Please contact the laboratory at [phone] for redraw instructions. Alanine aminotransferase [Enzymatic activity/volume] in Serum or PlasmaOrdered By: Bonilla Rubin on 55-43-1603AAQ [Catalytic activity/Vol]13 U/LNormal7-52 [facility] Medical CenterComment on above:Performed By: #### PTT, HS TROP, PT, CMP, CK, CBC ####[facility] [address] [place] [address] USAAlbumin [Mass/volume] in Serum or Plasma by Bromocresol green (BCG) dye binding methoOrdered By: Bonilla Rubin on 75-73-3918Fpkoqog BCG dye [Mass/Vol]3.8 g/dL3.5-5.7FMarion HospitalAlkaline phosphatase [Enzymatic activity/volume] in Serum or PlasmaOrdered By: Bonilla Rubin on 59-34-5999WRC [Catalytic activity/Vol]116 U/EUmjz96-800OltwzgjziSt. Mary'S Medical CenterComment on above:Performed By: #### PTT, HS TROP, PT, CMP, CK, CBC ####[facility] [address] [place] [address] USAAmmonia [Moles/volume] in PlasmaOrdered By: João Powell on 03-08-2024 Ammonia (P) [Moles/Vol]33 umol/AKjrinz59-67YrkrfhvvuRegency Hospital [facility] Center Comment on above:Result Comment: PERFORMED BY:[facility] [place], [place] [phone] MEDICAL DIRECTORCLIFFORD LOBATO M.D.Performed By: #### AMM ####[facility] [address] [place] [address] USAAmmonia (P) [Moles/Vol]Ammonia [Moles/volume] in Nckvhi86-78QjwuhuhmrSt. Mary'S Medical CenterAmphetamine Screen Ql (U)Ordered By: Bonilla Rubin on 98-39-2898Uxodtwgodzyp Ql (U)Amphetamines screenNegativeSt. Mary'S Medical CenterAmphetamines Ql (U)Negative NegativeSt. Mary'S Medical CenterAppearance of UrineOrdered By: Bonilla Rubin on 57-93-9252Etozvbnudb (U)Urine appearanceCleBrecksville VA / Crille HospitalArterial Blood Gason 10-45-1266DBM Base Excess-1.4 mmol/LNormal -3.0-3.0The [facility] Physician GroupComment on above:Performed By: #### ABG ####Point of Care testing,ABG Frac Inspired O221 %NormalThe [facility] Physician GroupComment on above:Performed By: #### ABG ####Point of Care testing,ABG Oxygen Content6.4 mmol/LLow6.6-9.7The [facility] Physician GroupComment on above: Performed By: #### ABG ####Point of Care testing,ABG Oxygen Mzukjpztmy81.1 % Dzfcml48.0-100.0The [facility] Physician GroupComment on above:Performed By: #### ABG ####Point of Care testing,ABG MMX149.3 mm[Hg]Low35.0-45.0The [facility] Physician GroupComment on above:Performed By: #### ABG ####Point of Care testing,ABG PH7.83Vttgia8.35-7.45The [facility] Physician GroupComment on above: Performed By: #### ABG ####Point of Care testing,ABG PO292.6 mm[Hg]Normal 80.0-100.0The [facility] Physician GroupComment on above:Performed By: #### ABG ####Point of Care testing,Respiratory CriticalPalm Beach Gardens Medical Center Physician [facility] HospitalComment on above:Result Comment: Critical Value called on: 03/08/2024 at 15:16PERFORMED BY:[address] [place], [place] [phone] MEDICAL DIRECTORCLIFFORD LOBATO M.D.Performed By: #### ABG ####Point of Care testing,VBG Draw SiteLeft RadialPalm Beach Gardens Medical Center Physician [facility] HospitalComment on above:Performed By: #### ABG ####Point of Care testing,Arterial Blood GasOrdered By: Bonilla Rubin on 15-66-7448DK5 [Moles/Vol] 23.2 mmol/EHjypqa49.0-27.0St. [facility]'S Medical CenterComment on above: Performed By: #### ABG ####Point of Care testing,HCO3 (Bld) [Moles/Vol]22.2 mmol/LLow23.0-29.0St. [facility]S Medical CenterComment on above:Performed By: #### ABG ####Point of Care testing,Aspartate aminotransferase [Enzymatic activity/volume] in Serum or PlasmaOrdered By: Bonilla Rubin on 22-82-8611BLI [Catalytic activity/Vol]14 U/ERkgwve66-74BxrffobqdSt. Mary'S Medical Center Comment on above:Performed By: #### PTT, HS TROP, PT, CMP, CK, CBC ####[facility] [address] [place] [address] USAAutomated basophil % Ordered By: Bonilla Rubin on 87-54-8262Etmvknreh/100 WBC (Bld)1.0 %Normal. St. [facility]'S Medical CenterComment on above:Performed By: #### PTT, HS TROP, PT, CMP, CK, CBC ####[facility] [address] [place] [address] USAAutomated basophil countOrdered By: Bonilla Rubin on 06-22-3588Yemanxjdw (Bld) [#/Vol]0.1 10*3/uLNormal0.0-0.2Firelands Regional Medical CenterComment on above:Result Comment: PERFORMED BY:[address] [place], [place] [phone] MEDICAL DIRECTORCLIFFORD LOBATO M.D.Performed By: #### PTT, HS TROP, PT, CMP, CK, CBC ####[place] [id number] [facility] Automated blood monocyte countOrdered By: Bonilla Rubin on 83-11-1352Jwkstgtpp (Bld) [#/Vol]1.2 10*3/uLHigh0.0-0.8St. [facility]'S Medical CenterComment on above:Performed By: #### PTT, HS TROP, PT, CMP, CK, CBC ####[place] [address] USAAutomated eosinophil %Ordered By: Bonilla Rubin on 03-70-2110Nofganarnnf/100 WBC (Bld)3.3 %Normal.St. [facility]'S Medical CenterComment on above:Performed By: #### PTT, HS TROP, PT, CMP, CK, CBC ####[place] [address] USAAutomated eosinophil countOrdered By: Bonilla Rubin on 03-08-2024 Eosinophils (Bld) [#/Vol]0.3 10*3/uLNormal0.0-0.45St. [facility]S Medical CenterComment on above:Performed By: #### PTT, HS TROP, PT, CMP, CK, CBC ####[place] [id number] [place] Automated monocyte %Ordered By: Bonilla Rubin on 99-01-4438Azlkikwcp/100 WBC (Bld)13.2 %Normal.St. Mary'S Medical CenterComment on above:Performed By: #### PTT, HS TROP, PT, CMP, CK, CBC ####[place] [id number] USAAutomated neutrophil %Ordered By: Bonilla Rubin on 34-83-1869Rkekpegbrjy/100 WBC (Bld)69.4 %Normal.St. [facility]'S Medical CenterComment on above:Performed By: #### PTT, HS TROP, PT, CMP, CK, CBC ####[facility] [address] Bacterial blood cultureOrdered By: Bonilla Rubin on 49-91-0845Kitmajkd identified Cx Nom (Bld)Bacterial blood cultureSt. Mary'S Medical Center Bacteria identified Cx Nom (Bld)Bacterial blood cultureSt. Mary'S Medical CenterBacteria identified Cx Nom (Bld)NO GROWTH 5 DAYSSt. Mary'S Medical CenterBacteria identified Cx Nom (Bld)NO GROWTH 5 DAYSSt. Mary'S Medical CenterBarbiturates [Presence] in Urine by Screen methodOrdered By: Bonilla Rubin on 94-55-5342Lwaxvgqdiqwm Screen Ql (U)NegativeNegative St. Mary'S Medical CenterBarbiturates Screen Ql (U)Barbiturates [Presence] in Urine by Screen methodNegativeSt. Mary'S Medical Center Benzodiazepines Screen Ql (U)Ordered By: Bonilla Rubin on 03-08-2024 Benzodiazepines Ql (U)NegativeNegativeSt. Mary'S Medical Center Benzodiazepines Ql (U)Benzodiazepines [Presence] in Urine by Screen method NegativeSt. Mary'S Medical CenterBenzoylecgonine [Presence] in Urine by Screen methodOrdered By: Bonilla Rubin on 19-12-1940Cgolmhvvqvonaat Screen Ql (U)NegativeNegativeSt. Mary'S Medical CenterBenzoylecgonine Screen Ql (U)Benzoylecgonine [Presence] in Urine by Screen methodNegativeSt. Mary'S Medical CenterBilirubin Test strip Ql (U)Ordered By: Bonilla Rubin on 50-95-5718Cemertgzc Ql (U)NegativeNegativeSt. Mary'S Medical Center Bilirubin Ql (U)Bilirubin.total [Presence] in Urine by Test stripNegative St. Mary'S Medical CenterBilirubin.total [Mass/volume] in Serum or PlasmaOrdered By: Bonilla Rubin on 91-82-7100Neefhvgkq [Mass/Vol]0.4 mg/dLNormal 0.3-1.0St. [facility]S Medical CenterComment on above:Performed By: #### PTT, HS TROP, PT, CMP, CK, CBC ####[address] [address] USABioFire Not Detectedon 18-67-8566XitOadx Not DetectedNot detectedNormalNot DetecteThe [facility] Physician [facility] HospitalComment on above:Result Comment: This is a duplicate RP2.1 COVID (PCR) result to be used for statistical tracking purpose only.PERFORMED BY:[address]ItzelWE[place], [place] [phone] MEDICAL DIRECTORCLIFFORD LOBATO M.D. Performed By: #### RESP PANEL UPP., BIOFIRECOVNOTDE ####[address] [address] USABlood Cultureon 03-08-2024 Bacteria identified Cx Nom (Bld)NO GROWTH 5 DAYS PERFORMED BY: [address] [address] PATHOLOGIST PRACTICE SUPPORT SPECIALIST CLIFFORD LOBATO M.D.NormalMayo Clinic Florida Physician [facility] HospitalComment on above:Performed By: #### CUBLD, LACTIC ####[address] [address] USABacteria identified Cx Nom (Bld)NO GROWTH 5 DAYS PERFORMED BY: [place] [id number] PATHOLOGIST PRACTICE SUPPORT SPECIALIST CLIFFORD LOBATO M.D.[facility] Physician [facility] HospitalComment on above:Performed By: #### CUBLD, LACTIC ####[place] [id number] USACOVID-19 Detected/Not DetectedOrdered By: Bonilla Rubin on 72-04-7527OTQN-CoV-2 (COVID-19) RNA NELLY+non-probe Ql (Nph)Not detectedNot DetectLima City HospitalComment on above:This is a duplicate RP2.1 COVID (PCR) result to be used for statistical tracking purpose only.CT angio headon 24-53-8558DH angio headNormalThe [facility] Physician [facility] Calcium [Mass/volume] in Serum or PlasmaOrdered By: Bonilla Rubin on 03-08-2024 Calcium [Mass/Vol]9.6 mg/dLNormal8.6-10.3FMarion Hospital Comment on above:Performed By: #### PTT, HS TROP, PT, CMP, CK, CBC ####[facility] [place] [address] USACannabinoids [Presence] in Urine by Screen methodOrdered By: Bonilla Rubin on 03-08-2024 Cannabinoids Screen Ql (U)NegativeNegSelect Medical OhioHealth Rehabilitation Hospital [facility] Comment on above:These are unconfirmed results and should not be used for legal purposes. Drug Cut-Off Concentration: AMPH 1000 ng/mL JERMAINE 200 ng/mL SAVANNAH 200 ng/mL COCM 300 ng/mL OP 300 ng/mL PCP 25 ng/mL THC 20 ng/mLCannabinoids Screen Ql (U)Cannabinoids [Presence] in Urine by Screen methodNegativeSt. Mary'S Medical CenterComment on above:These are unconfirmed results and should not be used for legal purposes. Drug Cut-Off Concentration: AMPH 1000 ng/mL JERMAINE 200 ng/mL SAVANNAH 200 ng/mL COCM 300 ng/mL OP 300 ng/mL PCP 25 ng/mL THC 20 ng/mLCapillary blood glucose measurement by glucometer (mass/volume)Ordered By: Bonilla Rubin on 12-87-6555Zrqgvzt [Mass/Vol]182 mg/dLNoMarietta Osteopathic ClinicComment on above:Result Comment: Random Glucose Reference Range is dependent on time and content of last meal. Glucose of more than 200 mg/dL in a nonstressed, ambulatory subject supports the diagnosis of Diabetes Evelyn litus.PERFORMED BY:[address] [place], [place] [phone] MEDICAL DIRECTORCLIFFORD LOBATO M.D.Performed By: #### GLULS ####Point of Care testing,Carbon dioxide, total [Moles/volume] in Serum or PlasmaOrdered By: Bonilla Rubin on 82-79-8767WX3 [Moles/Vol]25.0 mmol/LNormal 21.0-31.0St. [facility]'S Medical CenterComment on above:Performed By: #### PTT, HS TROP, PT, CMP, CK, CBC ####[facility] [place] [address] USAChloride [Moles/volume] in Serum or PlasmaOrdered By: Bonilla Rubin on 89-95-5289Drzodnmi [Moles/Vol]106 mmol/OAokxya11-597 [facility] Medical CenterComment on above:Performed By: #### PTT, HS TROP, PT, CMP, CK, CBC ####[place] [address] USAColor Auto (U)Ordered By: Bonilla Rubin on 03-08-2024 Color (U)Color of Urine by AutoYellowSt. Mary'S Medical CenterColor of Urine by AutoOrdered By: Bonilla Rubin on 00-30-9102Gkuur (U)Light-yellowNormal YellowSt. Mary'S Medical CenterComment on above:Order Comment: Name Collection Type:: Straight CatheterPerformed By: #### UA ####[place] [address] USAComplete Blood Count Auto Diff on 63-57-4361Woks Corpuscular HGB Conc32.0 g/dLLow32.5-35.6The [facility] Physician GroupComment on above:Performed By: #### PTT, HS TROP, PT, CMP, CK, CBC ####[place] [address] [place] Monocytes/100 WBC (Bld)18.68 %Normal0.00-20.00The [facility] Comment on above:Performed By: #### PTT, HS TROP, PT, CMP, CK, CBC ####[place] [address] USANRBC%0.2 /100{WBC} Normal0-0.5The [facility] Physician [facility] HospitalComment on above:Performed By: #### PTT, HS TROP, PT, CMP, CK, CBC ####[place] [address] USAComprehensive Metabolic Panelon 58-67-5560Andxgoc [Mass/Vol]3.8 g/dLNormal3.5-5.7The [facility] Physician GroupComment on above: Performed By: #### PTT, HS TROP, PT, CMP, CK, CBC ####[address] [address] [place] [address] USACreatinine Clr Calc Wdsevfqt58.90 NormalThe [facility] Physician GroupComment on above:Result Comment: PERFORMED BY:[address] [place], [place] [phone] MEDICAL DIRECTORCLIFFORD LOBATO M.D.Performed By: #### PTT, HS TROP, PT, CMP, CK, CBC ####[address] [address] USAGFR/1.73 sq M.predicted MDRD (S/P/Bld) [Vol rate/Area]40.131 mL/min/{1.73_m2}NormalThe [facility] Physician GroupComment on above:Performed By: #### PTT, HS TROP, PT, CMP, CK, CBC ####[address] [address] USACreatine kinase [Enzymatic activity/volume] in Serum or PlasmaOrdered By: Bonilla Rubin on 43-35-6363RX [Catalytic activity/Vol]181 U/HSsjpjx98-616PbnjnedseSt. Mary'S Medical CenterComment on above:Performed By: #### PTT, HS TROP, PT, CMP, CK, CBC ####[address] [address] USACK [Catalytic activity/Vol] Creatine kinase [Enzymatic activity/volume] in Serum or Vhfjaz97-052TxvqkfmwnSt. Mary'S Medical CenterCreatinine [Mass/volume] in Serum or PlasmaOrdered By: Bonilla Rubin on 39-84-8655Lobkzdwxtb [Mass/Vol]1.91 mg/dLHigh0.70-1.30St. [facility]S Medical CenterComment on above:Performed By: #### PTT, HS TROP, PT, CMP, CK, CBC ####[address] [address] USADrug Screen,Urineon 48-35-8142Jmammowcdsv Screen,UrineNegativeNormal NegativeThe [facility] Physician GroupComment on above:Performed By: #### URDS ####[facility] [place] [address] [place] Barbiturate Screen,UrineNegativeNormalNegativeThe [facility] Comment on above:Performed By: #### URDS ####[address] [address] USABenzodiazepines Screen,UrineNegativeNormal NegativeThe [facility] Physician GroupComment on above:Performed By: #### URDS ####[address] [address] [place] Cannabinoid Screen,UrineNegativeNormalNegativeThe [facility] Comment on above:Result Comment: These are unconfirmed results and should not be used for legal purposes. Drug Cut-Off Concentration: AMPH 1000 ng/mL JERMAINE 200 ng/mL SAVANNAH 200 ng/mL COCM 300 ng/mL OP 300 ng/mL PCP 25 ng/mL THC 20 ng/mLPERFORMED BY:[address] [place], [place] [phone] MEDICAL DIRECTORCLIFFORD LOBATO M.D.Performed By: #### URDS ####[address] [address] [place] Cocaine Screen,UrineNegativeNormalNegativeThe [facility] Physician [facility] HospitalComment on above:Performed By: #### URDS ####[address] [address] USAOpiate Screen,UrineNegativeNormalNegativeThe [facility] Physician GroupComment on above:Performed By: #### URDS ####[address] [address] USAPhencyclidine Screen,UrineNegativeNormalNegativeThe [facility] Physician GroupComment on above: Performed By: #### URDS ####[address] [address] USAECG 12 lead ECGon 51-24-4990PHZ 12 lead ECGNormalThe [facility] Physician GroupErythrocyte distribution width [Ratio] by Automated countOrdered By: Bonilla Rubin on 09-03-3947Iyeurlfmvyj distribution width (RBC) [Ratio]22.0 %High12.0-14.8St. [facility]'S Medical CenterComment on above: Performed By: #### PTT, HS TROP, PT, CMP, CK, CBC ####[address] [place] [address] USAErythrocytes [#/volume] in Blood by Automated countOrdered By: Bonilla Rubin on 36-57-1785GEP (Bld) [#/Vol]4.54 10*6/uLNormal3.90-5.60St. [facility]S Medical CenterComment on above: Performed By: #### PTT, HS TROP, PT, CMP, CK, CBC ####[address] [place] [address] USAGlucose [Mass/volume] in Serum or PlasmaOrdered By: Bonilla Rubin on 15-54-9966Ebnvqpd [Mass/Vol]167 mg/dLHigh 70-100St. [facility]S Medical CenterComment on above:Result Comment: Random Glucose Reference Range is dependent on time and content of last meal. Glucose of more than 200 mg/dL in a nonstressed, ambulatory subject supports the diagnosis of Diabetes Mellitus. ADA recommended reference rangePerformed By: #### PTT, HS TROP, PT, CMP, CK, CBC ####[place] [id number] USAGlucose [Mass/volume] in Urine by Test stripOrdered By: Bonilla Rubin on 83-15-9545Uuqcxlg Test strip (U) [Mass/Vol]>=1000 mg/dL HighUniversity Hospitals Parma Medical CenterGlucose Test strip (U) [Mass/Vol] Glucose [Mass/volume] in Urine by Test stripHighUniversity Hospitals Parma Medical CenterHematocrit [Volume Fraction] of Blood by Automated countOrdered By: Bonilla Rubin on 39-91-9247Ptjdkdimgs (Bld) [Volume fraction]32.2 %Low38.8-50.0 [facility]S Medical CenterComment on above:Performed By: #### PTT, HS TROP, PT, CMP, CK, CBC ####[address] [place] [place] [address] USAHemoglobin Test strip Ql (U)Ordered By: Bonilla Rubin on 20-87-9680Djwhypviou Ql (U)NegativeNegativeSt. Mary'S Medical Center Hemoglobin Ql (U)Hemoglobin [Presence] in Urine by Test stripNegativeSt. Mary'S Medical CenterHemoglobin [Mass/volume] in BloodOrdered By: Bonilla Rubin on 58-21-2487Sxraqqbzts (Bld) [Mass/Vol]10.3 g/dLLow13.0-17.0St. Mary'S Medical CenterComment on above:Performed By: #### PTT, HS TROP, PT, CMP, CK, CBC ####[facility] [address] [place] [address] USAINR in Platelet poor plasma by Coagulation assayOrdered By: Bonilla Rubin on 81-58-5156KEQ Coag (PPP) [Relative time]1.1 {INR}NormalSt. Mary'S Medical CenterComment on above:INR Therapeutic Range A) Pre- and [...] PTT, HS TROP, PT, CMP, CK, CBC ####[facility] [address] [place] [address] USAINR Coag (PPP) [Relative time]INR in Platelet poor plasma by Coagulation assaySt. Mary'S Medical Center Comment on above:INR Therapeutic Range A) Pre- [...] Ql (U)Ketones [Presence] in Urine by Test stripNegSelect Medical OhioHealth Rehabilitation Hospital - DublinKetones [Presence] in Urine by Test stripOrdered By: Bonilla Rubin on 89-41-1069Jzdouho Ql (U)NegativeNormalNegSelect Medical OhioHealth Rehabilitation Hospital - DublinComment on above:Order Comment: Name Collection Type:: Straight CatheterPerformed By: #### UA ####[address] [address] USALactate [Moles/volume] in Serum or PlasmaOrdered By: Bonilla Ruibn on 00-13-9945Jrmuioo [Moles/Vol]1.1 mmol/LNormal0.5-2.2FMarion HospitalComment on above:Result Comment: PERFORMED BY:[address] [place], [place] [phone] MEDICAL BRISA LOBATO M.D.Performed By: #### CUBLD, LACTIC ####[address] [address] USALactate [Moles/Vol] Lactate [Moles/volume] in Serum or Plasma0.5-2.2FMarion HospitalLeukocyte esterase [Presence] in Urine by Test stripOrdered By: Bonilla Rubin on 07-35-6344Jrojgfslp esterase Test strip Ql (U)NegativeNormalNegUniversity Hospitals Cleveland Medical CenterComment on above:Order Comment: Name Collection Type:: Straight CatheterPerformed By: #### UA ####[address] [address] USALeukocyte esterase Test strip Ql (U) Leukocyte esterase [Presence] in Urine by Test stripNegSelect Medical OhioHealth Rehabilitation Hospital - DublinLeukocytes [#/volume] corrected for nucleated erythrocytes in Blood by Automated counOrdered By: Bonilla Rubin on 67-35-7451UGX corrected for nucl RBC Auto (Bld) [#/Vol]8.9 10*3/uL4.1-10.5FMarion Hospital Leukocytes [#/volume] in Blood by Automated countOrdered By: Bonilla Rubin on 39-74-8005USO (Bld) [#/Vol]8.9 10*3/uLNormal4.1-10.5FMarion HospitalComment on above:Performed By: #### PTT, HS TROP, PT, CMP, CK, CBC ####[place] [id number] [facility] Lymphocytes [#/volume] in Blood by Automated countOrdered By: Bonilla Rubin on 23-03-0063Vnfcsigghfm (Bld) [#/Vol]1.2 10*3/uLNormal1.00-4.8St. Mary'S Medical CenterComment on above:Performed By: #### PTT, HS TROP, PT, CMP, CK, CBC ####[place] [id number] [facility] Lymphocytes/100 leukocytes in Blood by Automated countOrdered By: Bonilla Rubin on 58-21-8340Bgvtihlxvsd/100 WBC (Bld)13.1 %Normal.St. Mary'S Medical CenterComment on above:Performed By: #### PTT, HS TROP, PT, CMP, CK, CBC ####[address] [address] [facility] [Entitic mass] by Automated countOrdered By: Bonilla Rubin on 79-82-1367CMM (RBC) [Entitic mass]22.7 pgLow27.5-35.2FMarion HospitalComment on above:Performed By: #### PTT, HS TROP, PT, CMP, CK, CBC ####[address] [address] [facility] Auto (RBC) [Mass/Vol]Ordered By: Bonilla Rubin on 04-74-1841UMMR (RBC) [Mass/Vol]32.0 g/dL Low32.5-35.6FMarion HospitalMCV [Entitic volume] by Automated countOrdered By: Bonilla Rubin on 99-82-1813LDD (RBC) [Entitic vol]71.0 fLLow 83.5-101St. Mary'S Medical CenterComment on above:Performed By: #### PTT, HS TROP, PT, CMP, CK, CBC ####[facility] [address] [place] [address] USAMR head/brain wo conon 86-39-9836FT head/brain wo conNormalMayo Clinic Florida Physician GroupMonocyte distribution width [Entitic volume] in Blood by AutomatedOrdered By: Bonilla Rubin on 66-35-2641Wocgdoec distribution width Auto (Bld) [Entitic vol]18.68 %0.00-20.00St. Mary'S Medical CenterMonocyte distribution width Auto (Bld) [Entitic vol]Monocyte distribution width [Entitic volume] in Blood by Automated0.00-20.00St. [facility]'S Medical CenterNeutrophils [#/volume] in Blood by Automated countOrdered By: Bonilla Rubin on 64-94-2414Mudkturxtlr (Bld) [#/Vol]6.2 10*3/uLNormal 1.8-7.7FMarion HospitalComment on above:Performed By: #### PTT, HS TROP, PT, CMP, CK, CBC ####[facility] [place] [address] USANitrite Test strip Ql (U)Ordered By: Bonilla Rubin on 11-89-9934Omkvyww Ql (U)NegativeNegativeSt. Mary'S Medical CenterNitrite Ql (U)Nitrite [Presence] in Urine by Test stripNegSelect Medical OhioHealth Rehabilitation Hospital - DublinNo Panel InformationOrdered By: Bonilla Rubin on 03-08-2024 Arterial Blood Base Excess-1.4 mmol/L-3.0-3.0[facility] Arterial Blood Oxygen Content6.4 mmol/LLow6.6-9.7FMarion HospitalArterial Blood Oxygen Ylppldbnna26.1 %95.0-100.0St. [facility]'S Medical CenterArterial Blood Partial Pressure CO233.3 mm[Hg]Low35.0-45.0St. [facility]'S Medical CenterArterial Blood Partial Pressure O292.6 mm[Hg]80.0-100.0 [facility]S Medical CenterArterial Blood pH7.447.35-7.45St. [facility]'S Medical CenterBlood Gas Critical ValueSee commentSt. Mary'S Medical CenterComment on above:Critical Value called on: 03/08/2024 at 15:16 Blood Gas Sample SiteLeWayne HospitalFiO221 % [facility]7.447.35-7.45[facility] 33.3 mm[Hg]Low35.0-45.0[facility]92.6 mm[Hg]80.0-100.0 [facility]22.2 mmol/LLow23.0-29.0[facility]-1.4 mmol/L-3.0-3.0[facility]97.1 % 95.0-100.0[facility]6.4 mmol/LLow6.6-9.7FMarion Hospital23.2 mmol/L23.0-27.0[facility]21 % [facility] CenterLeft [facility] Medical Centeree commentSt. Mary'S Medical Center40.131 mL/MinSt. Mary'S Medical Center44.90St. [facility]S Medical CenterNucleated erythrocytes [Presence] in Blood by Automated countOrdered By: Bonilla Rubin on 01-83-9995Cthnwxwlj RBC Auto Ql (Bld)0.2 /100{WBC}0-0.5FMarion HospitalOpiates [Presence] in Urine by Screen methodOrdered By: Bonilla Rubin on 03-08-2024 Opiates Screen Ql (U)NegativeNegativeSt. Mary'S Medical CenterOpiates Screen Ql (U)Opiates [Presence] in Urine by Screen methodNegativeSt. Mary'S Medical CenterPartial Thromboplastin Timeon 41-84-4521pTIG Coag (Bld) [Time]29.6 oDwsmhb70.1-36.5The [facility] Hospital Physician GroupComment on above:Result Comment: A hematocrit value greater than 55% may lead to inaccurate results in coagulation testing. Patients having hematocrit values >55% require a special collection tube for coagulation studies. Please contact the laboratory at [phone] for redraw instructions.PERFORMED BY:[facility], [place] [phone] MEDICAL DIRECTORCLIFFORD LOBATO M.D.Performed By: #### PTT, HS TROP, PT, CMP, CK, CBC ####[address] Phencyclidine Screen Ql (U)Ordered By: Bonilla Rubin on 98-77-6297Jspjbigiytfxh Ql (U)NegativeNegSelect Medical OhioHealth Rehabilitation Hospital - DublinPhencyclidine Ql (U) Phencyclidine [Presence] in Urine by Screen methodNegSelect Medical OhioHealth Rehabilitation Hospital - DublinPlatelet mean volume [Entitic volume] in Blood by Automated count Ordered By: Bonilla Rubin on 08-16-5015Rbccoass mean volume (Bld) [Entitic vol] 8.2 fLNormal6.6-10.1FMarion HospitalComment on above:Performed By: #### PTT, HS TROP, PT, CMP, CK, CBC ####[place] [address] USAPlatelets [#/volume] in Blood by Automated countOrdered By: Bonilla Rubin on 85-93-0577Evnkihkyk (Bld) [#/Vol]286 10*3/uL Zgriuv847-574XbtlfritsSt. Mary'S Medical CenterComment on above:Performed By: #### PTT, HS TROP, PT, CMP, CK, CBC ####[place] [address] USAPotassium [Moles/volume] in Serum or PlasmaOrdered By: Bonilla Rubin on 26-46-2004Wvburazpu [Moles/Vol]4.1 mmol/LNormal3.5-5.1 [facility] Medical CenterComment on above:Performed By: #### PTT, HS TROP, PT, CMP, CK, CBC ####[place] [id number] USAProtein Test strip (U) [Mass/Vol]Ordered By: Bonilla Rubin on 08-90-5480Rltvhbz (U) [Mass/Vol]NegativeNegSelect Medical OhioHealth Rehabilitation Hospital - DublinProtein (U) [Mass/Vol]Protein [Mass/volume] in Urine by Test strip NegativeSt. Mary'S Medical CenterProtein [Mass/volume] in Serum or PlasmaOrdered By: Bonilla Rubin on 59-76-9912Cfizttz [Mass/Vol]7.7 g/dLNormal 6.4-8.9St. [facility]'S Medical CenterComment on above:Performed By: #### PTT, HS TROP, PT, CMP, CK, CBC ####[facility] [place] [address] USAProthrombin time (PT)Ordered By: Bonilla Rubin on 37-33-8939RY Coag (PPP) [Time]13.0 sHigh9.0-12.9St. Mary'S Medical CenterComment on above:A hematocrit value greater than 55% may lead to inaccurate results in coagulation testing. Patientshaving hematocrit values >55% require a special collection tube for coagulation studies. Please contact the laboratory at [phone] for redraw instructions.Result Comment: A hematocrit value greater than 55% may lead to inaccurate results in coagulation testing. Patients having hematocrit values >55% require a special collection tube for coagulation studies. Please contact the laboratory at [phone] for redraw instructions.Performed By: #### PTT, HS TROP, PT, CMP, CK, CBC ####[facility] [place] [address] USAPT Coag (PPP) [Time] Prothrombin time (PT)High9.0-12.9St. Mary'S Medical CenterComment on above:A hematocrit value greater than 55% may lead to inaccurate results in coagulation testing. Patientshaving hematocrit values >55% require a special collection tube for coagulation studies. Please contact the laboratory at [phone] for redraw instructions.Respiratory (Upper) Panel, PCRon 03-08-2024 Respiratory (Upper) Panel, PCRNormHCA Florida Englewood Hospital Physician GroupComment on above:Performed By: #### RESP PANEL UPP., BIOFIRECOVNOTDE ####[facility] [place] [address] USARespiratory pathogens DNA and RNA panel - Nasopharynx by NELLY with non-probe detectionOrdered By: Bonilla Rubin on 53-67-4263Hlnnzxyswho pathogens DNA and RNA panel NELLY+non-probe (Nph)Respiratory pathogens DNA and RNA panel - Nasopharynx by NELLY with non-probe detectionSt. Mary'S Medical CenterRespiratory pathogens DNA and RNA panel NELLY+non-probe (Nph)[facility] Medical Centererum globulin measurement by calculation (mass/volume)Ordered By: Bonilla Rubin on 03-08-2024 Globulin (S) [Mass/Vol]3.9 g/dLNormalSt. Mary'S Medical CenterComment on above:Performed By: #### PTT, HS TROP, PT, CMP, CK, CBC ####[place] [address] [place] [address] USASerum or plasma albumin/globulin mass ratioOrdered By: Bonilla Rubin on 03-08-2024 Albumin/Globulin [Mass ratio]1.0 {ratio}NormalSt. Mary'S Medical Center Comment on above:Performed By: #### PTT, HS TROP, PT, CMP, CK, CBC ####[place] [id number] USASerum or plasma anion gap determinationOrdered By: Bonilla Rubin on 29-12-1963Ivcha gap [Moles/Vol] 14.1 mmol/LNormal6.0-15.0St. [facility]S Medical CenterComment on above: Performed By: #### PTT, HS TROP, PT, CMP, CK, CBC ####[address] [address] USASodium [Moles/volume] in Serum or PlasmaOrdered By: Bonilla Rubin on 84-46-7381Qpoiur [Moles/Vol]141 mmol/LNormal 136-145St. [facility]'S Medical CenterComment on above:Performed By: #### PTT, HS TROP, PT, CMP, CK, CBC ####[address] [address] USASpecific gravity Test strip (U) [Rel density]Ordered By: Bonilla Rubin on 68-48-5950Vhbhidsd gravity (U) [Rel density]1.0131.001-1.030 [facility] Medical Centerpecific gravity (U) [Rel density]Specific gravity of Urine by Test strip1.001-1.030[facility] Troponin I High Sensitivityon 83-51-7339Bqedtyvg I High Sensitivity6.1 pg/mL Normal0.0-20.0The [facility] Physician GroupComment on above:Result Comment: PERFORMED BY:[address] [place], [place] [phone] MEDICAL DIRECTORCLIFFORD LOBATO M.D.Performed By: #### PTT, HS TROP, PT, CMP, CK, CBC ####[address] [address] USATroponin I.cardiac [Mass/volume] in Serum or Plasma by Detection limit <= 0.01 ng/Ordered By: Bonilla Rubin on 19-17-8863Wvisedax I.cardiac DL <= 0.01 ng/mL [Mass/Vol]6.1 pg/mL0.0-20.0St. [facility]'S Medical CenterTroponin I.cardiac DL <= 0.01 ng/mL [Mass/Vol]Troponin I.cardiac [Mass/volume] in Serum or Plasma by Detection limit <= 0.01 ng/0.0-20.0St. [facility]'S Medical CenterUrea nitrogen [Mass/volume] in Serum or PlasmaOrdered By: Bonilla Rubin on 06-33-3323Abto nitrogen [Mass/Vol]19 mg/dLNormal12-27 St[facility]S Medical CenterComment on above:Performed By: #### PTT, HS TROP, PT, CMP, CK, CBC ####[address] [place] [address] USAUrinalysison 06-81-7363Cksyywhlp,UrineNegativeNormal NegativeThe Our Community Hospital Physician GroupComment on above:Order Comment: Name Collection Type:: Straight CatheterPerformed By: #### UA ####[address] [address] USAGlucose Ql (U)>=1000HighNormal The [facility] Physician GroupComment on above:Order Comment: Name Collection Type:: Straight CatheterPerformed By: #### UA ####[address] [address] USANitrite,UrineNegativeNormalNegativeMayo Clinic Florida Physician GroupComment on above:Order Comment: Name Collection Type:: Straight CatheterPerformed By: #### UA ####[address] [address] USAOccult Blood,UrineNegativeNormalNegativeThe [facility] Hospital Physician GroupComment on above:Order Comment: Name Collection Type:: Straight CatheterResult Comment: PERFORMED BY:[address] [place], [place] [phone] MEDICAL DIRECTORCLIFFORD LOBATO M.D.Performed By: #### UA ####[address] [address] USAProtein,UrineNegativeNormalNegativeMayo Clinic Florida Physician GroupComment on above:Order Comment: Name Collection Type:: Straight CatheterPerformed By: #### UA ####[place] [address] USASpecificy Mobile,Urine1.969Rlvuzr6.001-1.030 [facility] Physician GroupComment on above:Order Comment: Name Collection Type:: Straight CatheterPerformed By: #### UA ####[address] [address] USAUrobilinogen,UrineNormalNormalNormal The [facility] Physician GroupComment on above:Order Comment: Name Collection Type:: Straight CatheterPerformed By: #### UA ####[address] [address] USAUrine appearanceOrdered By: Bonilla Rubin on 53-79-0472Dafkszzikl (U)ClearNormalClearSt. Mary'S Medical CenterComment on above:Order Comment: Name Collection Type:: Straight Catheter Performed By: #### UA ####[place] [id number] USAUrobilinogen Test strip (U) [Mass/Vol]Ordered By: Bonilla Rubin on 98-18-2545Wyfuyvfbkicu (U) [Mass/Vol]Normal mg/dLNormal St. [facility]'S Medical CenterUrobilinogen (U) [Mass/Vol]Urobilinogen [Mass/volume] in Urine by Test stripNormalSt. Mary'S Medical CenterXR chest 1V portableon 75-62-9074IN chest 1V portableNoPsychiatric hospital Physician GroupaPTT in Platelet poor plasma by Coagulation assayOrdered By: Bonilla Rubin on 28-70-5654vPIH Coag (PPP) [Time]Activated partial thromboplastin time (aPTT) in platelet poor plasma by coagulation a25.1-36.5FMarion HospitalComment on above:A hematocrit value greater than 55% may lead to inaccurate results in coagulation testing. Patientshaving hematocrit values >55% require a special collection tube for coagulation studies. Please contact the laboratory at [phone] for redraw instructions.pH Test strip (U)Ordered By: Bonilla Rubin on 85-56-2758gA (U)pH of Urine by Test strip5.0-9.0St. [facility]S Medical CenterpH of Urine by Test stripOrdered By: Bonilla Rubin on 19-17-7910sX (U)5.0 [pH]Normal5.0-9.0St. [facility]S Medical CenterComment on above:Order Comment: Name Collection Type:: Straight CatheterPerformed By: #### UA ####[facility] [address] [place] [address] [place] Alanine aminotransferase [Enzymatic activity/volume] in Serum or PlasmaOrdered By: João Powell on 75-75-1624LQB [Catalytic activity/Vol]11 U/LNormal St. [facility]'S Medical CenterComment on above:Performed By: #### MG, PHOS, CMP, DIFF CBC ####[facility] [address] [place] [address] USAALT [Catalytic activity/Vol]Alanine aminotransferase [Enzymatic activity/volume] in Serum or PlasmaSt. Mary'S Medical CenterAlbumin [Mass/volume] in Serum or Plasma by Bromocresol green (BCG) dye binding metho Ordered By: João Powell on 81-48-8431Ojuptne BCG dye [Mass/Vol]3.3 g/dLLow 3.5-5.7Firelands Regional Medical CenterAlbumin BCG dye [Mass/Vol]Albumin [Mass/volume] in Serum or Plasma by Bromocresol green (BCG) dye binding methoLow 3.5-5.7FMarion HospitalAlkaline phosphatase [Enzymatic activity/volume] in Serum or PlasmaOrdered By: João Powell on 37-21-0022KMM [Catalytic activity/Vol]101 U/HOaglar26-198GhcjkdwpcSt. Mary'S Medical Center Comment on above:Performed By: #### MG, PHOS, CMP, DIFF CBC ####[place] [address] [place] [address] USAALP [Catalytic activity/Vol]Alkaline phosphatase [Enzymatic activity/volume] in Serum or Plasma 34-104St. [facility]S Medical CenterAnisocytosis LM Ql (Bld)Ordered By: João Powell on 45-32-1372Rzbocporxyit Ql (Bld)Anisocytosis [Presence] in Blood by Light microscopySt. Mary'S Medical CenterAnisocytosis [Presence] in Blood by Light microscopyOrdered By: João Powell on 99-70-4375Karylslpprih Ql (Bld)MarkedNormalSt. Mary'S Medical CenterComment on above:Performed By: #### MG, PHOS, CMP, DIFF CBC ####[place] [id number] USAAspartate aminotransferase [Enzymatic activity/volume] in Serum or PlasmaOrdered By: João Powell on 50-37-5086YUG [Catalytic activity/Vol]14 U/GHoaijc53-30Rjhlucr[address] Comment on above:Performed By: #### MG, PHOS, CMP, DIFF CBC ####[place] [id number] USAAST [Catalytic activity/Vol]Aspartate aminotransferase [Enzymatic activity/volume] in Serum or Kzkjeg21-85NlbyllwzfSt. Mary'S Medical CenterBasophils Auto (Bld) [#/Vol]Ordered By: João Powell on 62-88-2060Lqaobhpbi (Bld) [#/Vol]N/AFMarion HospitalBasophils (Bld) [#/Vol]Automated basophil countSt. Mary'S Medical CenterBasophils/100 WBC Auto (Bld)Ordered By: João Powell on 03-06-2024 Basophils/100 WBC (Bld)N/AFMarion HospitalBasophils/100 WBC (Bld)Automated basophil %St. [facility] Medical CenterBasophils/100 WBC Manual cnt (Bld)Ordered By: João Powell on 85-85-9573Dwfntabim/100 WBC (Bld) Basophils/100 leukocytes in Blood by Manual count0Marion HospitalBasophils/100 leukocytes in Blood by Manual countOrdered By: João Powell on 86-14-9664Qvmmwphtf/100 WBC (Bld)1 %Normal0Marion HospitalComment on above:Performed By: #### MG, PHOS, CMP, DIFF CBC ####[facility] [address] [place], [place] [id number] USABilirubin.total [Mass/volume] in Serum or PlasmaOrdered By: João Powell on 09-64-6045Mnlxvpcja [Mass/Vol]0.4 mg/dLNotransylvania regional hospital0.3-1.0St. [facility]S Medical CenterComment on above:Performed By: #### MG, PHOS, CMP, DIFF CBC ####[place] [id number] USABilirubin [Mass/Vol]Bilirubin.total [Mass/volume] in Serum or Plasma0.3-1.0St. [facility]S Medical CenterCalcium [Mass/volume] in Serum or PlasmaOrdered By: João Powell on 39-64-1679Pjtjygu [Mass/Vol]8.7 mg/dLNormal8.6-10.3FMarion HospitalComment on above:Performed By: #### MG, PHOS, CMP, DIFF CBC ####[place] [id number] USACalcium [Mass/Vol]Calcium [Mass/volume] in Serum or Plasma8.6-10.3FMarion Hospital Capillary blood glucose measurement by glucometer (mass/volume)Ordered By: João Powell on 39-49-1724Yarqvdp [Mass/Vol]169 mg/dLNormalSt. Mary'S Medical CenterComment on above:Random Glucose Reference Range [...] subject supports the diagnosis of Diabetes Mellitus.PERFORMED BY:[address] [place], [place] [phone] MEDICAL DIRECTORCLIFFORD LOBATO M.D.Performed By: #### GLULS ####Point of Care testing, Carbon dioxide, total [Moles/volume] in Serum or PlasmaOrdered By: João Powell on 30-06-2319HA8 [Moles/Vol]24.3 mmol/JQcrmvc45.0-31.0St. [facility] Medical CenterComment on above:Performed By: #### MG, PHOS, CMP, DIFF CBC ####[facility] [place] [address] USACO2 [Moles/Vol] Carbon dioxide, total [Moles/volume] in Serum or Gxazgr26.0-31.0St. [facility]S Medical CenterChloride [Moles/volume] in Serum or PlasmaOrdered By: João Powell on 50-78-9530Ylnkiptf [Moles/Vol]107 mmol/PZrurcx73-887EbyljpmlwSt. Mary'S Medical CenterComment on above:Performed By: #### MG, PHOS, CMP, DIFF CBC ####[facility] [address] [place] [address] [place] Chloride [Moles/Vol]Chloride [Moles/volume] in Serum or Dguhxl66-864KzhipyopoSt. Mary'S Medical CenterComprehensive Metabolic Panelon 51-57-7662Jbhqkhm [Mass/Vol]3.3 g/dLLow3.5-5.7The [facility] Physician GroupComment on above: Performed By: #### MG, PHOS, CMP, DIFF CBC ####[facility] [address] [place] [address] USACreatinine Clr Calc Whesgnuh34.24 NormalThe Our Community Hospital Physician GroupComment on above:Performed By: #### MG, PHOS, CMP, DIFF CBC ####[address] [address] USAGFR/1.73 sq M.predicted MDRD (S/P/Bld) [Vol rate/Area]57.276 mL/min/{1.73_m2}[facility] Physician [facility] General HospitalComment on above:Performed By: #### MG, PHOS, CMP, DIFF CBC ####[address] [address] USACreatinine [Mass/volume] in Serum or PlasmaOrdered By: João Powell on 16-89-4195Ifhdfcrcwn [Mass/Vol]1.42 mg/dLHigh0.70-1.30 [facility] Medical CenterComment on above:Performed By: #### MG, PHOS, CMP, DIFF CBC ####[place] [id number] USACreatinine [Mass/Vol]Creatinine [Mass/volume] in Serum or PlasmaHigh 0.70-1.30St. Mary'S Medical CenterDacrocytes [Presence] in Blood by Light microscopyOrdered By: João Powell on 20-23-4676Ilkkfxkyfk LM Ql (Bld) Teardrop cell detectionSt. Mary'S Medical CenterDiff and CBCon 22-31-5936SlqdrlvqbnfuoInxxtuLiyanlUqv [place] Physician [facility] General HospitalComment on above:Performed By: #### MG, PHOS, CMP, DIFF CBC ####[address] [address] USALarge PlateletsSYuma Regional Medical CenterComment on above:Result Comment: PERFORMED BY:[address] [place], [place] [phone] MEDICAL DIRECTORCLIFFORD LOBATO M.D.Performed By: #### MG, PHOS, CMP, DIFF CBC ####[address] [address] USAMean Corpuscular HGB Conc32.0 g/dLLow32.5-35.6The [facility] Physician GroupComment on above:Performed By: #### MG, PHOS, CMP, DIFF CBC ####[place] [address] USAMicrocytosisSFirstHealth Physician GroupComment on above:Performed By: #### MG, PHOS, CMP, DIFF CBC ####[place] [address] [place] Platelet EstimateNormalNormalPalm Beach Gardens Medical Center Physician GroupComment on above:Performed By: #### MG, PHOS, CMP, DIFF CBC ####[place] [address] USAPolychromasiaSFirstHealth Physician GroupComment on above:Performed By: #### MG, PHOS, CMP, DIFF CBC ####[place] [address] USATear Drop CellsSlightPalm Beach Gardens Medical Center Physician GroupComment on above:Performed By: #### MG, PHOS, CMP, DIFF CBC ####[place] [address] USAEosinophils Auto (Bld) [#/Vol]Ordered By: João Powell on 12-08-2979Xgtrllqgepn (Bld) [#/Vol]N/[facility] Eosinophils (Bld) [#/Vol]Automated eosinophil countSt. Mary'S Medical CenterEosinophils/100 WBC Auto (Bld)Ordered By: João Powell on 03-06-2024 Eosinophils/100 WBC (Bld)N/[facility] CenterEosinophils/100 WBC (Bld)Automated eosinophil %[facility]S Medical CenterEosinophils/100 WBC Manual cnt (Bld)Ordered By: João Powell on 26-44-0129Jfdnzqndvyr/100 WBC (Bld) Eosinophils/100 leukocytes in Blood by Manual count1-3FMarion HospitalEosinophils/100 leukocytes in Blood by Manual countOrdered By: João Powell on 04-30-8239Ccplsvuisnr/100 WBC (Bld)1 %Normal1-3FMarion HospitalComment on above:Performed By: #### MG, PHOS, CMP, DIFF CBC ####[address] Erythrocyte distribution width Auto (RBC) [Ratio]Ordered By: João Powell on 77-83-2547Bgfefknxlll distribution width (RBC) [Ratio]Erythrocyte distribution width [Ratio] by Automated zgsdrTvaf40.0-14.8[facility] Erythrocyte distribution width [Ratio] by Automated countOrdered By: João Powell on 16-75-7920Zyawgxwvdhr distribution width (RBC) [Ratio]21.1 %High 12.0-14.8St. [facility]S Medical CenterComment on above:Performed By: #### MG, PHOS, CMP, DIFF CBC ####[address]Erythrocyte morphology finding [Identifier] in Blood Ordered By: João Powell on 27-64-3388IVW morphology finding Nom (Bld)RBC morphologySt. Mary'S Medical CenterErythrocytes [#/volume] in Blood by Automated countOrdered By: João Powell on 22-91-2895LTW (Bld) [#/Vol]3.68 10*6/uLLow3.90-5.60St. Mary'S Medical CenterComment on above:Performed By: #### MG, PHOS, CMP, DIFF CBC ####[place] [address] USAGlobulin Calc (S) [Mass/Vol]Ordered By: João Powell on 22-69-0838Kqelcvgr (S) [Mass/Vol]Serum globulin measurement by calculation (mass/volume)[facility]S Medical CenterGlucose Glucometer (BldC) [Mass/Vol]Ordered By: João Powell on 26-75-5738Omkgtlk [Mass/Vol]Capillary blood glucose measurement by glucometer (mass/volume)[facility]S Medical CenterComment on above:Random Glucose Reference Range is dependent on time and content of last meal. Glucose of more than 200 mg/dL in a nonstressed, ambulatory subject supports the diagnosis of Diabetes Mellitus.Glucose Poct Glucometerson 96-93-0062Bcxuawk [Mass/Vol]128 mg/dLNoPsychiatric hospital Physician GroupComment on above:Result Comment: Random Glucose Reference Range is dependent on time and content of last meal. Glucose of more than 200 mg/dL in a nonstressed, ambulatory subject supports the diagnosis of Diabetes Evelyn litus.PERFORMED BY:[facility] [place], [place] [phone] MEDICAL DIRECTORCLIFFORD LOBATO M.D.Performed By: #### GLULS ####Point of Care testing,Glucose [Mass/volume] in Serum or PlasmaOrdered By: João Powell on 38-07-1063Lzttrjw [Mass/Vol]99 mg/kKHvewuy56-270LkrlnudgzSt. Mary'S Medical CenterComment on above:ADA recommended reference rangeRandom Glucose Reference [...] By: #### MG, PHOS, CMP, DIFF CBC ####[facility] [address] [place] [address] USAGlucose [Mass/Vol]Glucose [Mass/volume] in Serum or Slclhp63-239JtooxmkecSt. Mary'S Medical CenterComment on above:ADA recommended reference rangeRandom Glucose Reference Range is dependent on time and content of last meal. Glucose of more than 200 mg/dL in a nonstressed, ambulatory subject supports the diagnosisof Diabetes Mellitus.Hematocrit Auto (Bld) [Volume fraction]Ordered By: João Powell on 99-58-2564Dgdhuyayoq (Bld) [Volume fraction]Hematocrit [Volume Fraction] of Blood by Automated eorniKad54.8-50.0[facility] Hematocrit [Volume Fraction] of Blood by Automated countOrdered By: João Powell on 00-37-1578Nmyfscqmga (Bld) [Volume fraction]25.8 %Low38.8-50.0St. [facility]'S Medical CenterComment on above:Performed By: #### MG, PHOS, CMP, DIFF CBC ####[facility] [id number] Hemoglobin [Mass/volume] in BloodOrdered By: João Powell on 03-06-2024 Hemoglobin (Bld) [Mass/Vol]8.3 g/dLLow13.0-17.0[facility] Comment on above:Performed By: #### MG, PHOS, CMP, DIFF CBC ####[facility] [id number] [place] [id number] USAHemoglobin (Bld) [Mass/Vol]Hemoglobin [Mass/volume] in YrcsjGip98.0-17.0St. [facility]S Medical CenterHypochromia LM Ql (Bld)Ordered By: João Powell on 03-06-2024 Hypochromia Ql (Bld)SlightSt. Mary'S Medical CenterHypochromia Ql (Bld) Hypochromia [Presence] in Blood by Light microscopySt. Mary'S Medical CenterLeukocytes [#/volume] corrected for nucleated erythrocytes in Blood by Automated counOrdered By: João Powell on 69-13-7766KFZ corrected for nucl RBC Auto (Bld) [#/Vol]6.8 10*3/uL4.1-10.5FMarion HospitalWBC corrected for nucl RBC Auto (Bld) [#/Vol]Leukocytes [#/volume] corrected for nucleated erythrocytes in Blood by Automated coun4.1-10.5FMarion HospitalLeukocytes [#/volume] in Blood by Automated countOrdered By: João Powell on 40-86-2253EOC (Bld) [#/Vol]6.8 10*3/uLNormal4.1-10.5FMarion HospitalComment on above:Performed By: #### MG, PHOS, CMP, DIFF CBC ####[facility] [id number] [place] [id number] [facility] Lymphocytes Auto (Bld) [#/Vol]Ordered By: João Powell on 31-53-5481Onsupspnmmn (Bld) [#/Vol]N/[facility] CenterLymphocytes (Bld) [#/Vol] Lymphocytes [#/volume] in Blood by Automated countSt. Mary'S Medical CenterLymphocytes/100 WBC Auto (Bld)Ordered By: João Powell on 03-06-2024 Lymphocytes/100 WBC (Bld)N/[facility] CenterLymphocytes/100 WBC (Bld)Lymphocytes/100 leukocytes in Blood by Automated countSt. Mary'S Medical CenterLymphocytes/100 WBC Manual cnt (Bld)Ordered By: João Powell on 58-16-1568Xcgzjizxppx/100 WBC (Bld)Lymphocytes/100 leukocytes in Blood by Manual coyrx01-83JwlquhoipSt. Mary'S Medical CenterLymphocytes/100 leukocytes in Blood by Manual countOrdered By: João Powell on 18-06-2831Druuldltkxa/100 WBC (Bld)18 %Gvwqis95-28RvggfktdqSt. Mary'S Medical CenterComment on above:Performed By: #### MG, PHOS, CMP, DIFF CBC ####[facility] [id number] [place] [phone] [facility] Auto (RBC) [Entitic mass]Ordered By: João Powell on 49-45-0826GUY (RBC) [Entitic mass]MCH [Entitic mass] by Automated count Low27.5-35.2FNationwide Children's Hospital [Entitic mass] by Automated countOrdered By: João Powell on 30-42-6999FEO (RBC) [Entitic mass]22.4 pgLow 27.5-35.2FMarion HospitalComment on above:Performed By: #### MG, PHOS, CMP, DIFF CBC ####[place] [id number] [facility] Auto (RBC) [Mass/Vol]Ordered By: João Powell on 32-51-8110WQBS (RBC) [Mass/Vol]32.0 g/dLLow32.5-35.6FCherrington Hospital (RBC) [Mass/Vol]MCHC [Mass/volume] by Automated countLow 32.5-35.6FMarion HospitalMCV Auto (RBC) [Entitic vol]Ordered By: João Powell on 67-53-3185XSN (RBC) [Entitic vol]MCV [Entitic volume] by Automated butcbRii19.5-101St. Mary'S Medical CenterMCV [Entitic volume] by Automated countOrdered By: João Powell on 88-81-3413LUF (RBC) [Entitic vol] 70.[address] [place], [place] [address]Comment on above:Performed By: #### MG, PHOS, CMP, DIFF CBC ####[address] [address] USAMagnesium [Mass/volume] in Serum or PlasmaOrdered By: João Powell on 69-88-4230Cfikwdkiw [Mass/Vol]1.6 mg/dLLow1.9-2.7FMarion HospitalComment on above:Result Comment: PERFORMED BY:[address] [place], [place] [phone] MEDICAL DIRECTORCLIFFORD LOBATO M.D.Performed By: #### MG, PHOS, CMP, DIFF CBC ####[address] [address] [place] Magnesium [Mass/Vol]Magnesium [Mass/volume] in Serum or PlasmaLow1.9-2.7 [facility]S Medical CenterManual blood segmented neutrophils/100 leukocytesOrdered By: João Powell on 17-87-0396Bsrhydndw neutrophils/100 WBC (Bld)72 %Mdwm52-80BllktvtqsSt. Mary'S Medical CenterComment on above:Performed By: #### MG, PHOS, CMP, DIFF CBC ####[address] [address] USAMicrocytes LM Ql (Bld)Ordered By: João Powell on 20-66-9294Xfcxvjvyrp Ql (Bld)SlightSt. Mary'S Medical CenterMicrocytes Ql (Bld)Microcytes [Presence] in Blood by Light microscopySt. Mary'S Medical CenterMonocytes Auto (Bld) [#/Vol]Ordered By: João Powell on 03-06-2024 Monocytes (Bld) [#/Vol]N/[facility] CenterMonocytes (Bld) [#/Vol]Automated blood monocyte countSt. Mary'S Medical Center Monocytes/100 WBC Auto (Bld)Ordered By: João Powell on 63-01-6567Jjswusvsq/100 WBC (Bld)N/[facility] CenterMonocytes/100 WBC (Bld)Automated monocyte %St. [facility]'S Medical CenterMonocytes/100 WBC Manual cnt (Bld) Ordered By: João Powell on 82-30-6013Lenxoilvd/100 WBC (Bld)Monocytes/100 leukocytes in Blood by Manual count[address] Monocytes/100 leukocytes in Blood by Manual countOrdered By: João Powell on 94-10-5060Kxyvxozga/100 WBC (Bld)8 %Normal[address] Comment on above:Performed By: #### MG, PHOS, CMP, DIFF CBC ####[facility] [address] [place] [address] USANeutrophils Auto (Bld) [#/Vol]Ordered By: João Powell on 37-75-2077Rufsdywkmka (Bld) [#/Vol]N/A [facility]S Medical CenterNeutrophils (Bld) [#/Vol]Neutrophils [#/volume] in Blood by Automated countSt. Mary'S Medical CenterNeutrophils/100 WBC Auto (Bld)Ordered By: João Powell on 98-60-4389Txbcyzerynt/100 WBC (Bld)N/A [facility]S Medical CenterNeutrophils/100 WBC (Bld)Automated neutrophil % [facility]S Medical CenterNo Panel InformationOrdered By: João Powell on 81-77-4876Mftzrupad GFR (CKD-EPI)57.276 mL/[facility] Creatinine Clearance (Chem62.24[facility]57.276 mL/[facility]62.24[facility] Nucleated erythrocytes [Presence] in Blood by Automated countOrdered By: João Powell on 96-66-3226Oktvpfplr RBC Auto Ql (Bld)N/AFMarion HospitalNucleated RBC Auto Ql (Bld)Nucleated erythrocytes [Presence] in Blood by Automated countSt. Mary'S Medical CenterPhosphate [Mass/volume] in Serum or PlasmaOrdered By: João Powell on 48-46-3749Beofrlkwm [Mass/Vol]3.2 mg/dL Normal2.5-4.5FMarion HospitalComment on above:Performed By: #### MG, PHOS, CMP, DIFF CBC ####[facility] [address] [place] [address] USAPhosphate [Mass/Vol]Phosphate [Mass/volume] in Serum or Plasma2.5-4.5FMarion HospitalPlatelet adequacy [Presence] in Blood by Light microscopyOrdered By: João Powell on 87-02-0328Qcvxdvmeq LM Ql (Bld)NormalNormKing's Daughters Medical Center OhioPlatelets LM Ql (Bld) Platelet adequacy [Presence] in Blood by Light microscopyNoMarietta Osteopathic ClinicPlatelet mean volume Auto (Bld) [Entitic vol]Ordered By: João Powell on 77-41-8330Jgkslhwp mean volume (Bld) [Entitic vol]Platelet mean volume [Entitic volume] in Blood by Automated count6.6-10.1FMarion HospitalPlatelet mean volume [Entitic volume] in Blood by Automated count Ordered By: João Powell on 78-78-9607Dhvxugth mean volume (Bld) [Entitic vol] 8.1 fLNormal6.6-10.1FMarion HospitalComment on above:Performed By: #### MG, PHOS, CMP, DIFF CBC ####[facility] [address] [place] [address] USAPlatelet morphology finding [Identifier] in Blood Ordered By: João Powell on 34-49-7421Aaexnmuw morphology finding Nom (Bld)N/A [facility]S Medical CenterPlatelet morphology finding Nom (Bld)Platelet morphology finding [Identifier] in BloodSt. Mary'S Medical Center Platelets Auto (Bld) [#/Vol]Ordered By: João Powell on 88-99-8437Aakwpdpqm (Bld) [#/Vol]Platelets [#/volume] in Blood by Automated xgyzq807-885JrftguivbSt. Mary'S Medical CenterPlatelets Large [Presence] in Blood by Light microscopy Ordered By: João Powell on 52-78-0163Rdyswdfwn Large LM Ql (Bld)[facility] HospitalPlatelets Large LM Ql (Bld)Platelets Large [Presence] in Blood by Light microscopySt. Mary'S Medical CenterPlatelets [#/volume] in Blood by Automated countOrdered By: João Powell on 41-11-7422Qhiahwyrb (Bld) [#/Vol]325 10*3/nOZcinbf698-423SdgeiwpklSt. Mary'S Medical CenterComment on above:Performed By: #### MG, PHOS, CMP, DIFF CBC ####[facility] [address] [place] [address] USAPolychromasia [Presence] in Blood by Light microscopyOrdered By: João Powell on 63-48-4885Dumgqtgddhlcx LM Ql (Bld) [facility] HospitalPolychromasia LM Ql (Bld)Polychromasia [Presence] in Blood by Light microscopySt. Mary'S Medical Center Potassium [Moles/volume] in Serum or PlasmaOrdered By: João Powell on 84-87-1184Vwipdejqt [Moles/Vol]4.2 mmol/LNormal3.5-5.1FMarion HospitalComment on above:Performed By: #### MG, PHOS, CMP, DIFF CBC ####[facility] [address] [place], [place] [id number] USAPotassium [Moles/Vol]Potassium [Moles/volume] in Serum or Plasma3.5-5.1FMarion HospitalProtein [Mass/volume] in Serum or PlasmaOrdered By: João Powell on 60-77-2257Bwmazqi [Mass/Vol]6.1 g/dLLow6.4-8.9St. [facility]S Medical CenterComment on above:Performed By: #### MG, PHOS, CMP, DIFF CBC ####[place] [id number] USAProtein [Mass/Vol] Protein [Mass/volume] in Serum or PlasmaLow6.4-8.9[facility] Auto (Bld) [#/Vol]Ordered By: João Powell on 82-48-0652JDP (Bld) [#/Vol]Erythrocytes [#/volume] in Blood by Automated countLow3.90-5.60[facility] morphologyOrdered By: João Powell on 95-25-6199KVV morphology finding Nom (Bld)N/AFTriHealth Good Samaritan Hospitalegmented neutrophils/100 WBC Manual cnt (Bld)Ordered By: João Powell on 03-06-2024 Segmented neutrophils/100 WBC (Bld)Manual blood segmented neutrophils/100 exnqlwfhueCteb80-71CxrslyekdCoshocton Regional Medical Centererum globulin measurement by calculation (mass/volume)Ordered By: João Powell on 42-64-1557Hyjvhdrx (S) [Mass/Vol]2.8 g/dLNormalSt. Mary'S Medical CenterComment on above: Performed By: #### MG, PHOS, CMP, DIFF CBC ####[facility] [address] [place] [address] USASerum or plasma albumin/globulin mass ratioOrdered By: João Powell on 97-64-4169Ezrjrgt/Globulin [Mass ratio]1.2 {ratio}NormalSt. Mary'S Medical CenterComment on above:Performed By: #### MG, PHOS, CMP, DIFF CBC ####[address] [address] USAAlbumin/Globulin [Mass ratio]Serum or plasma albumin/globulin mass ratioCoshocton Regional Medical Centererum or plasma anion gap determinationOrdered By: João Powell on 81-07-6943Merkd gap [Moles/Vol]9.9 mmol/LNormal6.0-15.0St. [facility]S Medical CenterComment on above:Performed By: #### MG, PHOS, CMP, DIFF CBC ####[place] [place] [address] USAAnion gap [Moles/Vol]Serum or plasma anion gap determination6.0-15.0Coshocton Regional Medical Centerodium [Moles/volume] in Serum or PlasmaOrdered By: João Powell on 57-08-7440Xsnkqh [Moles/Vol]137 mmol/POtzapw790-150BugfuvexxSt. Mary'S Medical CenterComment on above:Performed By: #### MG, PHOS, CMP, DIFF CBC ####[address] [place] [address] USASodium [Moles/Vol]Sodium [Moles/volume] in Serum or Sckzve556-297ChfuqaryfSt. Mary'S Medical Center Teardrop cell detectionOrdered By: João Powell on 15-86-3501Fdgtspfnzu LM Ql (Bld)SlightSt. Mary'S Medical CenterUrea nitrogen [Mass/volume] in Serum or PlasmaOrdered By: João Powell on 49-52-5863Vygj nitrogen [Mass/Vol]17 mg/dL Normal12-27St. [facility]'S Medical CenterComment on above:Performed By: #### MG, PHOS, CMP, DIFF CBC ####[address] [place] [address] USAUrea nitrogen [Mass/Vol]Urea nitrogen [Mass/volume] in Serum or Plasma12-27St. Mary'S Medical CenterWBC Auto (Bld) [#/Vol] Ordered By: João Powell on 38-85-1087YXC (Bld) [#/Vol]Leukocytes [#/volume] in Blood by Automated count4.1-10.5FMarion HospitalComplete Blood Count Auto Diffon 37-89-2501Tpeibxfey (Bld) [#/Vol]0.1 10*3/uLNormal0.0-0.2The [facility] Physician GroupComment on above:Result Comment: PERFORMED BY:[place] [address] [address] [place], [place] [phone] MEDICAL DIRECTORCLIFFORD LOBATO M.D.Performed By: #### PHOS, MG, CBC, CMP ####[place] [place] [address] [place] Basophils/100 WBC (Bld)1.1 %Normal.The [facility] Physician GroupComment on above:Performed By: #### PHOS, MG, CBC, CMP ####[place] [address] USAEosinophils (Bld) [#/Vol]0.2 10*3/uL Normal0.0-0.45The [facility] Physician GroupComment on above:Performed By: #### PHOS, MG, CBC, CMP ####[place] [address] USAEosinophils/100 WBC (Bld)2.8 %Normal.The [facility] Comment on above:Performed By: #### PHOS, MG, CBC, CMP ####[place] [address] USAErythrocyte distribution width (RBC) [Ratio]21.4 %High12.0-14.8The [facility] Hospital Physician GroupComment on above: Performed By: #### PHOS, MG, CBC, CMP ####[place] [address] USAHematocrit (Bld) [Volume fraction]26.8 %Low 38.8-50.0The [facility] Hospital Physician GroupComment on above:Performed By: #### PHOS, MG, CBC, CMP ####[place] [address] USAHemoglobin (Bld) [Mass/Vol]8.6 g/dLLow13.0-17.0The [facility] Physician GroupComment on above:Performed By: #### PHOS, MG, CBC, CMP ####[place] [address] USALymphocytes (Bld) [#/Vol]1.3 10*3/uLNormal1.00-4.8The [facility] Physician GroupComment on above: Performed By: #### PHOS, MG, CBC, CMP ####[place] [address] USALymphocytes/100 WBC (Bld)16.1 %Normal.The [facility] Physician GroupComment on above:Performed By: #### PHOS, MG, CBC, CMP ####[address] (RBC) [Entitic mass]22.4 pgLow27.5-35.2The [facility] Physician GroupComment on above:Performed By: #### PHOS, MG, CBC, CMP ####[address]V (RBC) [Entitic vol]70.1 fLLow 83.5-101The [facility] Physician GroupComment on above:Performed By: #### PHOS, MG, CBC, CMP ####[address]Mean Corpuscular HGB Conc31.9 g/dLLow32.5-35.6The [facility] Physician GroupComment on above:Performed By: #### PHOS, MG, CBC, CMP ####[place] [address] USAMonocytes (Bld) [#/Vol]1.0 10*3/uLHigh0.0-0.8The [facility] Physician GroupComment on above: Performed By: #### PHOS, MG, CBC, CMP ####[place] [address] USAMonocytes/100 WBC (Bld)12.4 %Normal.The [facility] Physician GroupComment on above:Performed By: #### PHOS, MG, CBC, CMP ####[address] Neutrophils (Bld) [#/Vol]5.6 10*3/uLNormal1.8-7.7The [facility] Comment on above:Performed By: #### PHOS, MG, CBC, CMP ####[place] [address] USANeutrophils/100 WBC (Bld)67.6 %Normal.The [facility] Physician GroupComment on above:Performed By: #### PHOS, MG, CBC, CMP ####[place] [address] USANRBC%0.0 /100{WBC}Normal0-0.5The [facility] Physician GroupComment on above:Performed By: #### PHOS, MG, CBC, CMP ####[place] [address] USAPlatelet mean volume (Bld) [Entitic vol]7.9 fLNormal6.6-10.1The [facility] Physician GroupComment on above:Performed By: #### PHOS, MG, CBC, CMP ####[place] [address] USAPlatelets (Bld) [#/Vol]361 10*3/yZVvxrcw819-456Oef [facility] Physician GroupComment on above:Performed By: #### PHOS, MG, CBC, CMP ####[place] [address] USARBC (Bld) [#/Vol]3.83 10*6/uLLow3.90-5.60The [facility] Physician GroupComment on above:Performed By: #### PHOS, MG, CBC, CMP ####[place] [address] USAWBC (Bld) [#/Vol]8.3 10*3/uLNormal 4.1-10.5The [facility] Physician GroupComment on above:Performed By: #### PHOS, MG, CBC, CMP ####[place] [address] USAComprehensive Metabolic Panelon 43-93-8142Yokgsgg [Mass/Vol]3.3 g/dLLow 3.5-5.7The [facility] Physician GroupComment on above:Performed By: #### PHOS, MG, CBC, CMP ####[place] [address] USAAlbumin/Globulin [Mass ratio]1.2 {ratio}NormalThe [facility] Physician GroupComment on above:Performed By: #### PHOS, MG, CBC, CMP ####[address] [place] [address] USAALP [Catalytic activity/Vol]98 U/ZEqhmin65-523Dzg [facility] Physician GroupComment on above: Performed By: #### PHOS, MG, CBC, CMP ####[address] [place] [address] USAALT [Catalytic activity/Vol]10 U/LNormal7-52 The [facility] Physician GroupComment on above:Performed By: #### PHOS, MG, CBC, CMP ####[address] [place] [address] [place] Anion gap [Moles/Vol]9.9 mmol/LNormal6.0-15.0The [facility] Comment on above:Performed By: #### PHOS, MG, CBC, CMP ####[address] [address] USAAST [Catalytic activity/Vol]14 U/DWrbxtw42-95Pix [facility] Physician GroupComment on above:Performed By: #### PHOS, MG, CBC, CMP ####[address] [address] USABilirubin [Mass/Vol]0.3 mg/dLNormal0.3-1.0The [facility] Physician GroupComment on above:Performed By: #### PHOS, MG, CBC, CMP ####[address] [address] USACalcium [Mass/Vol]8.6 mg/dLNormal8.6-10.3The [facility] Physician GroupComment on above:Performed By: #### PHOS, MG, CBC, CMP ####[address] [address] USAChloride [Moles/Vol]107 mmol/JUmpwwe85-476Mcf [facility] Physician GroupComment on above:Performed By: #### PHOS, MG, CBC, CMP ####[address] [address] USACO2 [Moles/Vol]25.2 mmol/HQvtenu60.0-31.0The [facility] Physician GroupComment on above:Performed By: #### PHOS, MG, CBC, CMP ####[place] [address] USACreatinine [Mass/Vol]1.49 mg/dLHigh 0.70-1.30The [facility] Physician [facility] HospitalComment on above:Performed By: #### PHOS, MG, CBC, CMP ####[place] [address] USACreatinine Clr Calc Qvjvwtcj13.31NoPsychiatric hospital Physician Group Comment on above:Performed By: #### PHOS, MG, CBC, CMP ####[place] [address] USAGFR/1.73 sq M.predicted MDRD (S/P/Bld) [Vol rate/Area]54.062 mL/min/{1.73_m2}NormalThe [facility] Physician GroupComment on above:Performed By: #### PHOS, MG, CBC, CMP ####[place] [address] USAGlobulin (S) [Mass/Vol]2.8 g/dLPalm Beach Gardens Medical Center Physician [facility] HospitalComment on above:Performed By: #### PHOS, MG, CBC, CMP ####[place] [address] USAGlucose [Mass/Vol]105 mg/mJRkni14-306Bdp [facility] Physician GroupComment on above:Result Comment: Random Glucose Reference Range is dependent on time and content of last meal. Glucose of more than 200 mg/dL in a nonstressed, ambulatory subject supports the diagnosis of Diabetes Mellitus. ADA recommended reference rangePerformed By: #### PHOS, MG, CBC, CMP ####[place] [address] [place] Potassium [Moles/Vol]4.1 mmol/LNormal3.5-5.1The [facility] Physician GroupComment on above:Performed By: #### PHOS, MG, CBC, CMP ####[place] [id number] USAProtein [Mass/Vol]6.1 g/dLLow6.4-8.9 The [facility] Physician GroupComment on above:Performed By: #### PHOS, MG, CBC, CMP ####[facility] [id number] Sodium [Moles/Vol]138 mmol/LCyfnyr792-740She [facility] Physician [facility] HospitalComment on above:Performed By: #### PHOS, MG, CBC, CMP ####[facility] [id number] [place] [address] USAUrea nitrogen [Mass/Vol]24 mg/dLNormal [facility] Physician [facility] HospitalComment on above:Performed By: #### PHOS, MG, CBC, CMP ####[facility] [place] [address] USAGlucose Poct Glucometerson 28-25-4925Zqdopxi [Mass/Vol]151 mg/dLNoPsychiatric hospital Physician [facility] HospitalComment on above:Result Comment: Random Glucose Reference Range is dependent on time and content of last meal. Glucose of more than 200 mg/dL in a nonstressed, ambulatory subject supports the diagnosis of Diabetes Mellitus.PERFORMED BY:[address] [place], [place] [phone] MEDICAL BRISA LOBATO M.D. Performed By: #### GLULS ####Point of Care testing,Glucose [Mass/Vol]106 mg/dL NormalMayo Clinic Florida Physician GroupComment on above:Result Comment: Random Glucose Reference Range is dependent on time and content of last meal. Glucose of more than 200 mg/dL in a nonstressed, ambulatory subject supports the diagnosis of Diabetes Mellitus.PERFORMED BY:[address] [place], [place] [phone] MEDICAL DIRECTORCLIFFORD LOBATO M.D.Performed By: #### GLULS ####Point of Care testing, Glucose [Mass/Vol]132 mg/dLPalm Beach Gardens Medical Center Physician GroupComment on above: Result Comment: Random Glucose Reference Range is dependent on time and content of last meal. Glucose of more than 200 mg/dL in a nonstressed, ambulatory subject supports the diagnosis of Diabetes Mellitus.PERFORMED BY:[address] [place], [place] [phone] MEDICAL DIRECTORCLIFFORD LOBATO M.D.Performed By: #### GLULS ####Point of Care testing,Aphdyen4Xpx3: Cleaned MeterNormalThe [facility] Physician GroupComment on above:Result Comment: PERFORMED BY:[address] [place], [place] [phone] MEDICAL DIRECTORCLIFFORD LOBATO M.D. Performed By: #### GLULS ####Point of Care testing,Glucose [Mass/Vol]151 mg/dL NormalThe [facility] Physician GroupComment on above:Result Comment: Random Glucose Reference Range is dependent on time and content of last meal. Glucose of more than 200 mg/dL in a nonstressed, ambulatory subject supports the diagnosis of Diabetes Mellitus.Performed By: #### GLULS ####Point of Care testing,Magnesiumon 76-63-7418Bdwneyprq [Mass/Vol]1.4 mg/dLLow1.9-2.7The [facility] Physician GroupComment on above:Result Comment: PERFORMED BY:[address] [place], [place] [phone] MEDICAL DIRECTORCLIFFORD LOBATO M.D.Performed By: #### PHOS, MG, CBC, CMP ####[address] [address] USANo Panel InformationOrdered By: João Powell on 02-63-5169Slfrrbw Glucose Comment Glu2: cleaned [facility] HospitalGlu2: cleaned [facility] HospitalPhosphoruson 61-47-9603Piylrenam [Mass/Vol]3.1 mg/dL Normal2.5-4.5The [facility] Physician GroupComment on above:Performed By: #### PHOS, MG, CBC, CMP ####[address] [address] USAUS carotid doppler BIon 98-71-1846SW carotid doppler BINormalThe [facility] Physician GroupABO/Rh Retypeon 38-76-8502JIZ/RH Recheck ResultPositive NormalThe [facility] Physician [facility] HospitalComment on above:Result Comment: PERFORMED BY:[address] [place], [place] [phone] MEDICAL DIRECTORCLIFFORD LOBATO M.D.Comprehensive Metabolic Panelon 34-22-9384Mfjwucg [Mass/Vol]3.3 g/dLLow3.5-5.7The [facility] Phys[facility] Comment on above:Performed By: #### MG, PHOS, SCAN CBC, CMP ####[address] [address] USAAlbumin/Globulin [Mass ratio]1.1 {ratio}NormalThe [facility] Physician [facility] HospitalComment on above: Performed By: #### MG, PHOS, SCAN CBC, CMP ####[address] [address] USAALP [Catalytic activity/Vol]105 U/L Cftw30-891Ome [facility] Physician GroupComment on above:Performed By: #### MG, PHOS, SCAN CBC, CMP ####[address] [address] USAALT [Catalytic activity/Vol]9 U/LNormal7-52The [facility] Physician [facility] HospitalComment on above:Performed By: #### MG, PHOS, SCAN CBC, CMP ####[address] [address] USAAnion gap [Moles/Vol] 11.1 mmol/LNormal6.0-15.0The [facility] Physician GroupComment on above:Performed By: #### MG, PHOS, SCAN CBC, CMP ####[address] [address] USAAST [Catalytic activity/Vol]11 U/KRyy37-90Mtn Physicians Care Surgical HospitalComment on above:Performed By: #### MG, PHOS, SCAN CBC, CMP ####[address] [address] [place] Bilirubin [Mass/Vol]0.2 mg/dLLow0.3-1.0The [facility] Physician GroupComment on above:Performed By: #### MG, PHOS, SCAN CBC, CMP ####[place] [address] USACalcium [Mass/Vol]8.3 mg/dLLow8.6-10.3 The [facility] Physician GroupComment on above:Performed By: #### MG, PHOS, SCAN CBC, CMP ####[place] [address] USAChloride [Moles/Vol]104 mmol/NSmimfw56-251Afp [facility] Comment on above:Performed By: #### MG, PHOS, SCAN CBC, CMP ####[place] [address] USACO2 [Moles/Vol]27.6 mmol/CZarwmp25.0-31.0The [facility] Physician GroupComment on above:Performed By: #### MG, PHOS, SCAN CBC, CMP ####[place] [address] USACreatinine [Mass/Vol]1.83 mg/dLHigh0.70-1.30The [facility] Physician GroupComment on above:Performed By: #### MG, PHOS, SCAN CBC, CMP ####[place] [address] [place] Creatinine Clr Calc Urpfsoif05.29NoPsychiatric hospital Physician GroupComment on above:Performed By: #### MG, PHOS, SCAN CBC, CMP ####[place] [address] USAGFR/1.73 sq M.predicted MDRD (S/P/Bld) [Vol rate/Area]42.245 mL/min/{1.73_m2}NormalThe [facility] Comment on above:Performed By: #### MG, PHOS, SCAN CBC, CMP ####[place] [address] USAGlobulin (S) [Mass/Vol]2.9 g/dLNoPsychiatric hospital Physician GroupComment on above:Performed By: #### MG, PHOS, SCAN CBC, CMP ####[address] [place] [address] USAGlucose [Mass/Vol]150 mg/sYUdfr59-904Vzb [facility] Physician GroupComment on above:Result Comment: Random Glucose Reference Range is dependent on time and content of last meal. Glucose of more than 200 mg/dL in a nonstressed, ambulatory subject supports the diagnosis of Diabetes Mellitus. ADA recommended reference rangePerformed By: #### MG, PHOS, SCAN CBC, CMP ####[address] [place] [address] [place] Potassium [Moles/Vol]3.7 mmol/LNormal3.5-5.1The [facility] Physician GroupComment on above:Performed By: #### MG, PHOS, SCAN CBC, CMP ####[address] [place] [address] USAProtein [Mass/Vol]6.2 g/dLLow 6.4-8.9The [facility] Physician GroupComment on above:Performed By: #### MG, PHOS, SCAN CBC, CMP ####[address] [address] USASodium [Moles/Vol]139 mmol/XHopame545-676Vij [facility] Physician GroupComment on above:Performed By: #### MG, PHOS, SCAN CBC, CMP ####[address] [address] USAUrea nitrogen [Mass/Vol]36 mg/dLHigh7-25The [facility] Physician GroupComment on above: Performed By: #### MG, PHOS, SCAN CBC, CMP ####[address] [place] [address] USAECH echo transthoracicon 04-39-2492NUD echo transthoracicNormalThe [facility] Physician GroupFerritinon 03-04-2024 SgvejgjtBgtpbd62.9-336.2The [facility] Physician GroupComment on above:Order Comment: Comment addResult Comment: Specimen hemolyzed, redraw requested Performed By: #### TSH3, LILA, FE and TIBC, [id number] ####[facility] [id number] [place] [address] USAFerritin [Mass/volume] in Serum or PlasmaOrdered By: João Powell on 56-41-4514Kqkejnmn [Mass/Vol]7.7 ng/mLLow23.9-336.2FMarion HospitalFerritin [Mass/Vol]Ferritin [Mass/volume] in Serum or LvcghiHvc18.9-336.2FMarion Hospital Folate [Mass/volume] in Serum or PlasmaOrdered By: João Powell on 03-04-2024 Folate [Mass/Vol]7.8 ng/mL>5.9St. [facility]S Medical CenterComment on above: Folate reference range: >5.9 ng/mlThe WHO technical consultation on folate and vitamin v10bjhjzvcjnidn has determined that folate concentrations lessthan 4 ng/ml are considered deficient.Folate [Mass/Vol]Folate [Mass/volume] in Serum or Plasma>5.9St. [facility]'S Medical CenterComment on above:Folate reference range: >5.9 ng/mlThe WHO technical consultation on folate and vitamin k85agrkpqx ncies has determined that folate concentrations lessthan 4 ng/ml are considered deficient.Glucose Poct Glucometerson 53-74-3138Ucghxef7Jcj7: Cleaned MeterNormal The [facility] Physician GroupComment on above:Result Comment: PERFORMED BY:[facility] [place], [place] [phone]- 7[address]PATHOLOGIST MEDICAL DIRECTORCLIFFORD LOBATO M.D.Performed By: #### GLULS ####Point of Care testing,Glucose [Mass/Vol]213 mg/dLNoPsychiatric hospital Physician GroupComment on above:Result Comment: Random Glucose Reference Range is dependent on time and content of last meal. Glucose of more than 200 mg/dL in a nonstressed, ambulatory subject supports the diagnosis of Diabetes Mellitus. Performed By: #### GLULS ####Point of Care testing,Glucose [Mass/Vol]279 mg/dL NormalThe [facility] Physician GroupComment on above:Result Comment: Random Glucose Reference Range is dependent on time and content of last meal. Glucose of more than 200 mg/dL in a nonstressed, ambulatory subject supports the diagnosis of Diabetes Mellitus.PERFORMED BY:[address] [place], [place] [phone] MEDICAL DIRECTORCLIFFORD LOBATO M.D.Performed By: #### GLULS ####Point of Care testing, Glucose [Mass/Vol]236 mg/dLNoPsychiatric hospital Physician GroupComment on above: Result Comment: Random Glucose Reference Range is dependent on time and content of last meal. Glucose of more than 200 mg/dL in a nonstressed, ambulatory subject supports the diagnosis of Diabetes Mellitus.PERFORMED BY:[address] [place], [place] [phone] MEDICAL DIRECTORCLIFFORD LOBATO M.D.Performed By: #### GLULS ####Point of Care testing,Glucose [Mass/Vol]242 mg/dLNoPsychiatric hospital Physician GroupComment on above:Result Comment: Random Glucose Reference Range is dependent on time and content of last meal. Glucose of more than 200 mg/dL in a nonstressed, ambulatory subject supports the diagnosis of Diabetes Mellitus.PERFORMED BY:[address] [place], [place] [phone] MEDICAL DIRECTORCLIFFORD LOBATO M.D.Performed By: #### GLULS ####Point of Care testing,Iron [Mass/volume] in Serum or PlasmaOrdered By: João Powell on 51-65-6240Zzdl [Mass/Vol]13 ug/pRYyc91-141IkzcvjdxmSt. Mary'S Medical CenterComment on above:Order Comment: Comment addPerformed By: #### TSH3, LILA, FE and TIBC, [id number] ####[address] [address] USAIron [Mass/Vol]Iron [Mass/volume] in Serum or Plasma Pos04-638RuifyjxpnSt. Mary'S Medical CenterIron and TIBC Profileon 03-04-2024% Iron Saturation3.2 %Xnu61-57Fin [facility] Physician GroupComment on above:Order Comment: Comment addPerformed By: #### TSH3, LILA, FE and TIBC, [id number] ####[address] [place] [address] USATotal Iron Binding Lbjjfkzt435 ug/dSSrrfcu653-572OxwMerit Health River OaksComment on above:Order Comment: Comment addPerformed By: #### TSH3, LILA, FE and TIBC, [id number] ####[address] [address] USAIron binding capacity [Mass/volume] in Serum or PlasmaOrdered By: João Powell on 89-57-8517Kleq binding capacity [Mass/Vol]403 ug/wD943-536CfbtjgzytSt. Mary'S Medical CenterIron saturation [Mass Fraction] in Serum or PlasmaOrdered By: João Powell on 35-99-8007Oopb saturation [Mass fraction]3.2 %Ryf03-66 St. [facility]S Medical CenterLeukoReduced RBCon 72-30-3925PojdsLsrtiwg RBC TRANSFUSED 03/04/24 1657NormalThe [facility] Physician [facility] HospitalMR angio MR brain w/o on 37-84-9559JG angio MR brain w/oNormalMayo Clinic Florida Physician [facility] HospitalMagnesiumon 71-69-9291Iumajthdp [Mass/Vol]1.3 mg/dLLow1.9-2.7The [facility] Physician [facility] Comment on above:Result Comment: PERFORMED BY:[address] [place], [place] [phone] MEDICAL DIRECTORCLIFFORD LOBATO M.D.Performed By: #### MG, PHOS, SCAN CBC, CMP ####[address] [address] USAOvalocyte detection Ordered By: João Powell on 53-89-3483Gdbuuzepia LM Ql (Bld)SlightSt. Mary'S Medical CenterOvalocytes [Presence] in Blood by Light microscopyOrdered By: João Powell on 62-86-8708Koxkgajnvl LM Ql (Bld)Ovalocyte detection St. [facility]'S Medical CenterPhosphoruson 98-02-4623Lkhumwmpv [Mass/Vol]3.5 mg/dLNormal2.5-4.5The [facility] Physician GroupComment on above:Performed By: #### MG, PHOS, SCAN CBC, CMP ####[address] [address] USARedraw Ferritinon 26-11-5980Opvwnr Ferritin7.7 ng/mL Low23.9-336.2The [facility] Physician GroupComment on above:Performed By: #### TSH3, REDRAW B12, REDRAW LILA, REDRAW FOLATE ####[address] [address] USARedraw Folateon 64-15-2441Tmbkcc Folate7.8 ng/mLNormal>5.9The [facility] Physician GroupComment on above:Result Comment: Folate reference range: >5.9 ng/ml The WHO technical consultation on folate and vitamin b12 deficiencies has determined that folate concentrations less than 4 ng/ml are considered deficient.Performed By: #### TSH3, REDRAW B12, REDRAW LILA, REDRAW FOLATE ####[address] [address] USAScan and CBCon 05-89-2538Ifvjejfdtlzx Ql (Bld) ModerateNormalThe [facility] Physician GroupComment on above:Performed By: #### MG, PHOS, SCAN CBC, CMP ####[address] [address] USABasophils (Bld) [#/Vol]0.1 10*3/uLNormal0.0-0.2The [facility] Physician GroupComment on above:Performed By: #### MG, PHOS, SCAN CBC, CMP ####[address] [address] [place] Basophils/100 WBC (Bld)2.4 %Normal.The [facility] Physician GroupComment on above:Performed By: #### MG, PHOS, SCAN CBC, CMP ####[address] [address] USAEosinophils (Bld) [#/Vol]0.2 10*3/uL Normal0.0-0.45The [facility] Physician GroupComment on above:Performed By: #### MG, PHOS, SCAN CBC, CMP ####[place] [address] USAEosinophils/100 WBC (Bld)3.6 %Normal.The [facility] Physician GroupComment on above:Performed By: #### MG, PHOS, SCAN CBC, CMP ####[address] Erythrocyte distribution width (RBC) [Ratio]20.8 %High12.0-14.8The [facility] Physician GroupComment on above:Performed By: #### MG, PHOS, SCAN CBC, CMP ####[address] Hematocrit (Bld) [Volume fraction]23.7 %Low38.8-50.0The [facility] Physician GroupComment on above:Performed By: #### MG, PHOS, SCAN CBC, CMP ####[place] [address] USAHemoglobin (Bld) [Mass/Vol]7.4 g/dLLow13.0-17.0The [facility] Physician GroupComment on above: Performed By: #### MG, PHOS, SCAN CBC, CMP ####[place] [address] USAHypochromasiaSlightNormalThe [facility] Physician GroupComment on above:Performed By: #### MG, PHOS, SCAN CBC, CMP ####[address] Lymphocytes (Bld) [#/Vol]1.3 10*3/uLNormal1.00-4.8The [facility] Comment on above:Performed By: #### MG, PHOS, SCAN CBC, CMP ####[place] [address] USALymphocytes/100 WBC (Bld)22.8 %Normal.The [facility] Physician GroupComment on above:Performed By: #### MG, PHOS, SCAN CBC, CMP ####[id number] [facility] (RBC) [Entitic mass]21.8 pgLow27.5-35.2The [facility] Physician GroupComment on above:Performed By: #### MG, PHOS, SCAN CBC, CMP ####[address] (RBC) [Entitic vol]69.5 fLLow83.5-101The [facility] Physician GroupComment on above:Performed By: #### MG, PHOS, SCAN CBC, CMP ####[place] [address] USAMean Corpuscular HGB Conc31.3 g/dLLow 32.5-35.6The [facility] Physician GroupComment on above:Performed By: #### MG, PHOS, SCAN CBC, CMP ####[place] [address] USAMonocytes (Bld) [#/Vol]0.9 10*3/uLHigh0.0-0.8The [facility] Physician GroupComment on above:Performed By: #### MG, PHOS, SCAN CBC, CMP ####[place] [address] USAMonocytes/100 WBC (Bld)16.7 %Normal.The [facility] Physician GroupComment on above:Performed By: #### MG, PHOS, SCAN CBC, CMP ####[place] [address] USANeutrophils (Bld) [#/Vol]3.0 10*3/uLNormal1.8-7.7The [facility] Physician GroupComment on above:Performed By: #### MG, PHOS, SCAN CBC, CMP ####[place] [address] USANeutrophils/100 WBC (Bld)54.5 %Normal.The [facility] Physician GroupComment on above:Performed By: #### MG, PHOS, SCAN CBC, CMP ####[place] [address] USANRBC%0.3 /100{WBC}Normal0-0.5The [facility] Physician GroupComment on above:Performed By: #### MG, PHOS, SCAN CBC, CMP ####[address] OvalocytesSlightPalm Beach Gardens Medical Center Physician GroupComment on above:Performed By: #### MG, PHOS, SCAN CBC, CMP ####[place] [address] USAPlatelet EstimateNormalNormalNormHCA Florida Englewood Hospital Physician GroupComment on above:Performed By: #### MG, PHOS, SCAN CBC, CMP ####[address] Platelet mean volume (Bld) [Entitic vol]8.2 fLNormal6.6-10.1The [facility] Physician GroupComment on above:Performed By: #### MG, PHOS, SCAN CBC, CMP ####[address] Platelet MorphologyNormalNormalPalm Beach Gardens Medical Center Physician GroupComment on above:Result Comment: PERFORMED BY:[address] [place], [place] [phone] MEDICAL DIRECTORCLIFFORD LOBATO M.D. Performed By: #### MG, PHOS, SCAN CBC, CMP ####[place] [address] USAPlatelets (Bld) [#/Vol]394 10*3/uL Jjbzfn955-316Dun [facility] Physician GroupComment on above:Performed By: #### MG, PHOS, SCAN CBC, CMP ####[address]PolychromasiaSFirstHealth Physician GroupComment on above:Performed By: #### MG, PHOS, SCAN CBC, CMP ####[place] [address] USARBC (Bld) [#/Vol]3.41 10*6/uLLow3.90-5.60The [facility] Physician GroupComment on above:Performed By: #### MG, PHOS, SCAN CBC, CMP ####[facility] [place] [address] USAWBC (Bld) [#/Vol]5.5 10*3/uLNormal4.1-10.5The [facility] Physician GroupComment on above:Performed By: #### MG, PHOS, SCAN CBC, CMP ####[address] [place] [address] [facility] Serum or plasma iron binding capacity measurement (mass/volume)Ordered By: João Powell on 81-79-5047Muvk binding capacity [Mass/Vol]Iron binding capacity [Mass/volume] in Serum or Clhyre788-476SlybnskteCoshocton Regional Medical Centererum or plasma iron saturation measurement (mass fraction)Ordered By: João Powell on 42-63-2598Ttay saturation [Mass fraction]Iron saturation [Mass Fraction] in Serum or NczjniJty47-59UavyoglpySt. Mary'S Medical CenterThyroid Stimulating Hormoneon 26-52-0412Smdcjgw Stimulating HormoneNormal0.45-5.33The [facility] Physician GroupComment on above:Order Comment: Comment addResult Comment: Specimen hemolyzed, redraw requestedPERFORMED BY:[address] [place], [place] [phone] MEDICAL DIRECTORCLIFFORD LOBATO M.D.Performed By: #### TSH3, LILA, FE and TIBC, [id number] ####[address] [place] [address] [facility] Thyrotropin [Units/volume] in Serum or PlasmaOrdered By: João Powell on 05-15-6104TTT Qn2.90 m[IU]/LNormal0.45-5.33[facility] Comment on above:Result Comment: PERFORMED BY:[address] [place], [place] [phone] MEDICAL DIRECTORCLIFFORD LOBATO M.D.Performed By: #### TSH3, REDRAW B12, REDRAW LILA, REDRAW FOLATE ####[address] [place] [address] [facility] TSH QnThyrotropin [Units/volume] in Serum or Plasma0.45-5.33St. Mary'S Medical CenterTransferrin [Mass/volume] in Serum or PlasmaOrdered By: João Powell on 86-61-1592Foafmjtnnmz [Mass/Vol]288 mg/cZFfeokg193-102Uhbwmafkw40 Stafford StreetComment on above:Order Comment: Comment addPerformed By: #### TSH3, LILA, FE and TIBC, [id number] ####[address] [address] USATransferrin [Mass/Vol]Transferrin [Mass/volume] in Serum or Wttfzs997-157Idcpqqpye[address] [place], [place] [address]Type and Screenon 03-11-8818NXI and Rh group Nom (Bld)Blood group O Rh(D) positiveNormalThe [facility] Physician GroupComment on above:Order Comment: Number of units to transfuse now? 1Result Comment: PERFORMED BY:[address] [place], [place] [phone] MEDICAL DIRECTORCLIFFORD LOBATO M.D.Vit. B12/Folate Profileon 97-76-0556YuvhhwCzuacu>5.9The [facility] Physician GroupComment on above:Order Comment: Comment addResult Comment: Specimen hemolyzed, redraw requested Folate reference range: >5.9 ng/ml The WHO technical consultation on folate and vitamin b12 deficiencies has determined that folate concentrations less than 4 ng/ml are considered deficient.PERFORMED BY:[address] [place], [place] [phone] MEDICAL DIRECTORCLIFFORD LOBATO M.D.Performed By: #### TSH3, LILA, FE and TIBC, [id number] ####[address] [place] [address] USAVitamin B20Wuailn628-486Mqr [facility] Physician GroupComment on above:Order Comment: Comment addResult Comment: Specimen hemolyzed, redraw requestedPerformed By: #### TSH3, LILA, FE and TIBC, [id number] ####[address] Price StreetVitamin B12 ser/plasOrdered By: João Powell on 96-28-7469Lxhhxjwhj (Vitamin B12) [Mass/Vol]170 pg/mQQuu954-312Ddqxvuzer[address] [place], [place] [address]Comment on above:Performed By: #### TSH3, REDRAW B12, REDRAW LILA, REDRAW FOLATE ####[address] [place] [id number] [facility] Cobalamin (Vitamin B12) [Mass/Vol]Vitamin B12 ser/jdlrRow053-080Teihbdjpn[address] [place], [place] [address]XR knee RT 2Von 77-19-8503WP knee RT 2VNoPsychiatric hospital Physician GroupAnisocytosis [Presence] in Blood by Light microscopy Ordered By: Kait Dan on 40-18-1732Mcxhqinzqmlq Ql (Bld)MarkedNormal St. Mary'S Medical CenterComment on above:Performed By: #### HS TROP, SCAN CBC, BNP, BMP ####[place] [address] USAAppearance of UrineOrdered By: Kait Dan on 03-03-2024 Appearance (U)Urine appearanceCleBrecksville VA / Crille HospitalAutomated basophil %Ordered By: Kait Dan on 12-78-5868Stkawlost/100 WBC (Bld)1.7 % Normal.St. [facility]'S Medical CenterComment on above:Performed By: #### HS TROP, SCAN CBC, BNP, BMP ####[phone] USAAutomated basophil countOrdered By: Kait Dan on 13-59-3942Qsmppkava (Bld) [#/Vol]0.1 10*3/uLNormal0.0-0.2FMarion HospitalComment on above:Performed By: #### HS TROP, SCAN CBC, BNP, BMP ####[phone] [facility] Automated blood monocyte countOrdered By: Kait Dan on 07-86-9447Phkxnyuhb (Bld) [#/Vol]0.8 10*3/uLNormal0.0-0.8St. [facility]'S Medical CenterComment on above:Performed By: #### HS TROP, SCAN CBC, BNP, BMP ####[address] [place] [address] USAAutomated eosinophil %Ordered By: Kait Dan on 80-61-9749Gaeeyxcbioy/100 WBC (Bld)3.2 %Normal.St. [facility]'S Medical CenterComment on above:Performed By: #### HS TROP, SCAN CBC, BNP, BMP ####[address] [place] [address] USAAutomated eosinophil countOrdered By: Kait Dan on 99-44-3956Tmdsobckmef (Bld) [#/Vol]0.2 10*3/uLNormal0.0-0.45St. [facility]S Medical CenterComment on above:Performed By: #### HS TROP, SCAN CBC, BNP, BMP ####[place] [address] USAAutomated monocyte %Ordered By: Kait Dan on 63-35-3942Mkrvoiwlf/100 WBC (Bld)11.3 %Normal.St. [facility]'S Medical CenterComment on above:Performed By: #### HS TROP, SCAN CBC, BNP, BMP ####[place] [address] USAAutomated neutrophil %Ordered By: Kait Dan on 97-90-6894Swxkdbozlpa/100 WBC (Bld)65.6 %Normal.St. [facility]'S Medical CenterComment on above: Performed By: #### HS TROP, SCAN CBC, BNP, BMP ####[place] [address] USABNP ser/plasOrdered By: Kait Dan on 68-98-6970Upcuucevvwx peptide B (Bld) [Mass/Vol]23.0 pg/mLNormal5-100 [facility]S Medical CenterComment on above:Result Comment: PERFORMED BY:[address] [place], [place] [phone] 7[address]PATHOLOGIST MEDICAL DIRECTORCLIFFORD LOBATO M.D.Performed By: #### HS TROP, SCAN CBC, BNP, BMP ####[address] [place] [address] USABasic Metabolic Panelon 18-40-0466Upxmcpnhwz Clr Calc Pdqvawmq79.86 NormalMayo Clinic Florida Physician GroupComment on above:Result Comment: PERFORMED BY:[address] [place], [place] [phone]- 7487PATHOLOGIST MEDICAL DIRECTORCLIFFORD LOBATO M.D.Performed By: #### HS TROP, SCAN CBC, BNP, BMP ####[address] [address] USAGFR/1.73 sq M.predicted MDRD (S/P/Bld) [Vol rate/Area]38.669 mL/min/{1.73_m2}[facility] Physician GroupComment on above:Performed By: #### HS TROP, SCAN CBC, BNP, BMP ####[address] [address] USABilirubin Test strip Ql (U)Ordered By: Kait Dan on 65-92-6028Uyoggjtav Ql (U)NegativeNegSelect Medical OhioHealth Rehabilitation Hospital - DublinBilirubin Ql (U)Bilirubin.total [Presence] in Urine by Test stripNegative St. Mary'S Medical CenterCOVID CepheidOrdered By: Kait Dan on 94-75-4721FUMI-CoV-2 (COVID-19) Ab IA QlNegativeNegSelect Medical OhioHealth Rehabilitation Hospital - DublinComment on above:This is a duplicate Cepheid Xpert Xpress CoV- 2/Flu/RSV Plus RNA by RT-PCR result to be used for statistical tracking purpose only.SARS-CoV-2 (COVID-19) RNA NELLY+probe Ql (Unsp spec)[facility]ma Medical CenterComment on above:Performed By: #### CEPHEID NEG, UA, COVID19 FLU RSV ####[address] [place] [address] SARS-CoV-2 (COVID-19) RNA NELLY+probe Ql (Unsp spec)NegativeNormalNegative St. Mary'S Medical CenterComment on above:Result Comment: This is a duplicate Cepheid Xpert Xpress CoV-2/Flu/RSV Plus RNA by RT-PCR result deborah used for statistical tracking purpose only.PERFORMED BY:[address] [place], [place] [phone] MEDICAL DIRECTORCLIFFORD LOBATO M.D.Performed By: #### CEPHEID NEG, UA, COVID19 FLU RSV ####[facility] [address] [place] [address] USACOVID Cepheid NegativeOrdered By: Kait Dan on 78-68-1946FOVG-CoV-2 (COVID-19) Ab IA QlCOVID CepheidNegativeSt. Mary'S Medical CenterComment on above: This is a duplicate Cepheid Xpert Xpress CoV-2/Flu/RSV Plus RNA by RT-PCR result to be used for statistical tracking purpose only.CT abdomen pelvis w conon 17-12-1931BZ abdomen pelvis w [facility] Physician GroupCT head/brain wo conon 54-83-3994UJ head/brain wo [facility] Physician GroupCalcium [Mass/volume] in Serum or PlasmaOrdered By: Kait Dan on 52-55-6102Eeyjokm [Mass/Vol]8.6 mg/dLNormal8.6-10.3FMarion HospitalComment on above:Performed By: #### HS TROP, SCAN CBC, BNP, BMP ####[facility] [id number] [place] [id number] [facility] Capillary blood glucose measurement by glucometer (mass/volume)Ordered By: Kait Dan on 53-39-4844Hlnbudc [Mass/Vol]167 mg/dLNoMarietta Osteopathic ClinicComment on above:Random Glucose Reference Range is dependent on time and content of last meal. Glucose of more than 200 mg/dL in a nonstressed, ambulatory subject supports the diagnosis of Diabetes Mellitus.Result Comment: Random Glucose Reference Range is dependent on time and content of last meal. Glucose of more than 200 mg/dL in a nonstressed, ambulatory subject supports the diagnosis of Diabetes Mellitus.PERFORMED BY:[address] [place]Dar[place]MaryCHAL[place], [place] [phone] MEDICAL DIRECTORCLIFFORD LOBATO M.D.Performed By: #### GLULS ####Point of Care testing, Carbon dioxide, total [Moles/volume] in Serum or PlasmaOrdered By: Kait Dan on 25-83-9968KP1 [Moles/Vol]24.3 mmol/JUvffaj04.0-31.0St. [facility]S Medical CenterComment on above:Performed By: #### HS TROP, SCAN CBC, BNP, BMP ####[address] [address] [place] Chloride [Moles/volume] in Serum or PlasmaOrdered By: Kait Dan on 75-95-1978Elkkvwcv [Moles/Vol]103 mmol/IWyllwi56-954PtkayhxzdSt. Mary'S Medical CenterComment on above:Performed By: #### HS TROP, SCAN CBC, BNP, BMP ####[address] [address] USAColor Auto (U)Ordered By: Kait Dan on 41-45-8665Sskjy (U)Color of Urine by Auto YellowSt. Mary'S Medical CenterColor of Urine by AutoOrdered By: Kait Dan on 85-31-5851Ehzqq (U)ColorlessNormalYellowSt. Mary'S Medical CenterComment on above:Order Comment: Name Collection Type:: Clean-Voided MidstreamPerformed By: #### CEPHEID NEG, UA, COVID19 FLU RSV ####[address] [place] [address] USACreatinine [Mass/volume] in Serum or PlasmaOrdered By: Kait Dan on 03-03-2024 Creatinine [Mass/Vol]1.97 mg/dLHigh0.70-1.30[facility] Comment on above:Performed By: #### HS TROP, SCAN CBC, BNP, BMP ####[address] [address] USAECG 12 lead ECGon 63-20-8138HAA 12 lead ECGNoPsychiatric hospital Physician Wayne General HospitalErythrocyte distribution width [Ratio] by Automated countOrdered By: Kait Dan on 94-51-5748Fajmxjuejbv distribution width (RBC) [Ratio]20.9 %High12.0-14.8 [facility] Medical CenterComment on above:Performed By: #### HS TROP, SCAN CBC, BNP, BMP ####[facility] [address] [place] [address] USAErythrocytes [#/volume] in Blood by Automated countOrdered By: Kait Dan on 23-16-5583UAO (Bld) [#/Vol]3.58 10*6/uLLow3.90-5.60St. [facility]S Medical CenterComment on above:Performed By: #### HS TROP, SCAN CBC, BNP, BMP ####[facility] [place] [address] USAGlucose Poct Glucometerson 25-13-8522Lzthdkk4Asf4: Cleaned MeterNoACMC Healthcare System GlenbeighComment on above:Result Comment: PERFORMED BY:[address] [place], [place] [phone] MEDICAL DIRECTORCLIFFORD LOBATO M.D.Performed By: #### GLULS ####Point of Care testing,Glucose [Mass/Vol]204 mg/dLEssentia HealthComment on above:Result Comment: Random Glucose Reference Range is dependent on time and content of last meal. Glucose of more than 200 mg/dL in a nonstressed, ambulatory subject supports the diagnosis of Diabetes Mellitus.Performed By: #### GLULS ####Point of Care testing,Glucose [Mass/volume] in Serum or Plasma Ordered By: Kait Dan on 09-67-0111Jvvjvbq [Mass/Vol]142 mg/oDIima98-138 [facility] Medical CenterComment on above:ADA recommended reference rangeRandom Glucose Reference [...] #### HS TROP, SCAN CBC, BNP, BMP ####[facility] [address] [place] [address] USAGlucose [Mass/volume] in Urine by Test stripOrdered By: Kait Dan on 37-28-4184Flcmgvg Test strip (U) [Mass/Vol]500 mg/dLHighNoPremier Health Miami Valley HospitalGlucose Test strip (U) [Mass/Vol]Glucose [Mass/volume] in Urine by Test stripHighNoMarietta Osteopathic Clinic Hematocrit [Volume Fraction] of Blood by Automated countOrdered By: Kait Dan on 02-91-3902Ozkwweaqch (Bld) [Volume fraction]24.7 %Low38.8-50.0 [facility] Medical CenterComment on above:Performed By: #### HS TROP, SCAN CBC, BNP, BMP ####[id number] USAHemoglobin Test strip Ql (U)Ordered By: Kait Dan on 03-03-2024 Hemoglobin Ql (U)NegativeNegSelect Medical OhioHealth Rehabilitation Hospital - DublinHemoglobin Ql (U)Hemoglobin [Presence] in Urine by Test stripNegSelect Medical OhioHealth Rehabilitation Hospital - DublinHemoglobin [Mass/volume] in BloodOrdered By: Kait Dan on 79-36-1163Cqslzvvcwi (Bld) [Mass/Vol]7.8 g/dLLow13.0-17.0St. [facility] Medical CenterComment on above:Performed By: #### HS TROP, SCAN CBC, BNP, BMP ####[facility] [place] [address] [place] Hypochromia LM Ql (Bld)Ordered By: Kait Dan on 05-32-8087Crcqzicdyxx Ql (Bld)ModerateSt. Mary'S Medical CenterKetones Test strip Ql (U)Ordered By: Kait Dan on 82-44-6547Evccjyg Ql (U)Ketones [Presence] in Urine by Test stripNegativeSt. Mary'S Medical CenterKetones [Presence] in Urine by Test stripOrdered By: Kait Dan on 91-36-5920Qwyycud Ql (U)Negative NormalNegSelect Medical OhioHealth Rehabilitation Hospital - DublinComment on above:Order Comment: Name Collection Type:: Clean-Voided MidstreamPerformed By: #### CEPHEID NEG, UA, COVID19 FLU RSV ####[address] [place] [address] USALeukocyte esterase [Presence] in Urine by Test stripOrdered By: Kait Dan on 56-13-2405Ahqoooapx esterase Test strip Ql (U)NegativeNormalNegative St. [facility]'S Medical CenterComment on above:Order Comment: Name Collection Type:: Clean-Voided MidstreamPerformed By: #### CEPHEID NEG, UA, COVID19 FLU RSV ####[address] [address] [place] Leukocyte esterase Test strip Ql (U)Leukocyte esterase [Presence] in Urine by Test stripNegSelect Medical OhioHealth Rehabilitation Hospital - DublinLeukocytes [#/volume] corrected for nucleated erythrocytes in Blood by Automated counOrdered By: Kait Dan on 35-72-1239VUP corrected for nucl RBC Auto (Bld) [#/Vol]7.2 10*3/uL4.1-10.5FMarion HospitalLeukocytes [#/volume] in Blood by Automated countOrdered By: Kait Dan on 36-55-0400PLC (Bld) [#/Vol]7.2 10*3/uLNormal4.1-10.5FMarion HospitalComment on above:Performed By: #### HS TROP, SCAN CBC, BNP, BMP ####[address] [address] USALymphocytes [#/volume] in Blood by Automated countOrdered By: Kait Dan on 05-80-2808Rhvniahzhpp (Bld) [#/Vol]1.3 10*3/uLNormal1.00-4.8St. [facility]S Medical CenterComment on above:Performed By: #### HS TROP, SCAN CBC, BNP, BMP ####[address] [place] [address] USALymphocytes/100 leukocytes in Blood by Automated countOrdered By: Kait Dan on 55-49-0186Yadigujcwtg/100 WBC (Bld) 18.2 %Normal.St. [facility]'S Medical CenterComment on above:Performed By: #### HS TROP, SCAN CBC, BNP, BMP ####[facility] [id number] [facility] [Entitic mass] by Automated countOrdered By: Kait Dan on 87-93-6510NTZ (RBC) [Entitic mass]21.8 pgLow27.5-35.2FMarion HospitalComment on above:Performed By: #### HS TROP, SCAN CBC, BNP, BMP ####[facility] [address] Auto (RBC) [Mass/Vol]Ordered By: Kait Dan on 63-39-3699DSBM (RBC) [Mass/Vol]31.6 g/dLLow32.5-35.6FMarion HospitalMCV [Entitic volume] by Automated countOrdered By: Kait Dan on 86-13-1928OIB (RBC) [Entitic vol]69.0 fLLow83.5-101St. [facility]S Medical CenterComment on above:Performed By: #### HS TROP, SCAN CBC, BNP, BMP ####[facility] [id number] USAMicrocytes LM Ql (Bld)Ordered By: Kait Dan on 13-85-3948Vzottdxpcg Ql (Bld)MarkedSt. Mary'S Medical CenterMonocyte distribution width [Entitic volume] in Blood by Automated Ordered By: Kait Dan on 56-83-0436Olknbtob distribution width Auto (Bld) [Entitic vol]17.33 %0.00-20.00St. [facility]S Medical CenterMonocyte distribution width Auto (Bld) [Entitic vol]Monocyte distribution width [Entitic volume] in Blood by Automated0.00-20.00[facility] Natriuretic peptide B [Mass/Vol]Ordered By: Kait Dan on 03-03-2024 Natriuretic peptide B (Bld) [Mass/Vol]BNP ser/plas5-100St. [facility]S Medical CenterNeutrophils [#/volume] in Blood by Automated countOrdered By: Kait Dan on 57-54-7059Uzbflclveir (Bld) [#/Vol]4.7 10*3/uLNormal1.8-7.7 [facility] Medical CenterComment on above:Performed By: #### HS TROP, SCAN CBC, BNP, BMP ####[facility] [address] [place] [address] USANitrite Test strip Ql (U)Ordered By: Kait Dan on 03-03-2024 Nitrite Ql (U)NegativeNegativeSt. Mary'S Medical CenterNitrite Ql (U) Nitrite [Presence] in Urine by Test stripNegSelect Medical OhioHealth Rehabilitation Hospital - DublinNo Panel InformationOrdered By: Kait Dan on 53-82-9437Yokphvxfx GFR (CKD-EPI)38.669 mL/MinSt. Mary'S Medical CenterPharmacy Creatinine Clearance (Chem44.86St. [facility]S Medical CenterNucleated erythrocytes [Presence] in Blood by Automated countOrdered By: Kait Dan on 03-03-2024 Nucleated RBC Auto Ql (Bld)0.2 /100{WBC}0-0.5FMarion Hospital Platelet adequacy [Presence] in Blood by Light microscopyOrdered By: Kait Dan on 12-53-8163Binetrcmx LM Ql (Bld)IncreasedNoMarietta Osteopathic ClinicPlatelet mean volume [Entitic volume] in Blood by Automated count Ordered By: Kait Dan on 43-48-5117Dfpzvnwk mean volume (Bld) [Entitic vol] 7.8 fLNormal6.6-10.1FMarion HospitalComment on above:Performed By: #### HS TROP, SCAN CBC, BNP, BMP ####[facility] [address] [place] [address] USAPlatelet morphology finding [Identifier] in BloodOrdered By: Kait Dan on 99-06-6116Mtlbhuyv morphology finding Nom (Bld)NormalUniversity Hospitals Parma Medical CenterPlatelets [#/volume] in Blood by Automated countOrdered By: Kait Dan on 95-26-2779Juaraajkz (Bld) [#/Vol]452 10*3/fFZjfs202-210XaiivsrlwSt. Mary'S Medical CenterComment on above: Performed By: #### HS TROP, SCAN CBC, BNP, BMP ####[facility] [address] [place] [address] USAPolychromasia [Presence] in Blood by Light microscopyOrdered By: Kait Dan on 42-90-7967Mafuroirwsmhg LM Ql (Bld)SlightSt. Mary'S Medical CenterPotassium [Moles/volume] in Serum or PlasmaOrdered By: Kait Dan on 29-83-8513Ihpjwrhtn [Moles/Vol]3.9 mmol/L Normal3.5-5.1FMarion HospitalComment on above:Performed By: #### HS TROP, SCAN CBC, BNP, BMP ####[facility] [address] [place] [address] USAProtein Test strip (U) [Mass/Vol]Ordered By: Kait Dan on 92-07-1367Zeivigi (U) [Mass/Vol]NegativeNegativeSt. Mary'S Medical CenterProtein (U) [Mass/Vol]Protein [Mass/volume] in Urine by Test strip NegativeSt. Mary'S Medical CenterRBC morphologyOrdered By: Kait Dan on 49-69-7146NFB morphology finding Nom (Bld)N/[facility] CenterRespiratory specimen influenza A virus, influenza B virus, respiratory syncytical virOrdered By: Kait Dan on 99-06-6798HGKZ-CoV-2 (COVID-19) RNA NELLY+probe Ql (Unsp spec)Respiratory specimen influenza A virus, influenza B virus, respiratory syncytical virSt. Mary'S Medical Center Scan and CBCon 14-58-9941FgasgbgfbylzrLfzhcjjqNkceldMdk [facility] Physician GroupComment on above:Performed By: #### HS TROP, SCAN CBC, BNP, BMP ####[facility] [address] [place] [address] USAMean Corpuscular HGB Conc31.6 g/dLLow32.5-35.6The [facility] Physician GroupComment on above:Performed By: #### HS TROP, SCAN CBC, BNP, BMP ####[address] [address] USAMicrocytosisMarkedNoPsychiatric hospital Physician [facility] HospitalComment on above:Performed By: #### HS TROP, SCAN CBC, BNP, BMP ####[address] [place] [address] USAMonocytes/100 WBC (Bld)17.33 %Normal0.00-20.00[facility] Comment on above:Performed By: #### HS TROP, SCAN CBC, BNP, BMP ####[address] [address] USANRBC%0.2 /100{WBC} Normal0-0.5The [facility] Physician [facility] HospitalComment on above:Performed By: #### HS TROP, SCAN CBC, BNP, BMP ####[address] [address] USAPlatelet EstimateIncreasedNormCampbellton-Graceville Hospital Physician [facility] HospitalComment on above:Performed By: #### HS TROP, SCAN CBC, BNP, BMP ####[address] [address] [place] Platelet MorphologyNormalHCA Florida Mercy Hospital Physician [facility] HospitalComment on above:Result Comment: PERFORMED BY:[address] [place], [place] [phone] MEDICAL DIRECTORCLIFFORD LOBATO M.D. Performed By: #### HS TROP, SCAN CBC, BNP, BMP ####[address] [address] USAPolychromasiaSlightPalm Beach Gardens Medical Center Physician [facility] HospitalComment on above:Performed By: #### HS TROP, SCAN CBC, BNP, BMP ####[address] [address] USASerum or plasma anion gap determinationOrdered By: Kait Dan on 67-93-7106Tlgyt gap [Moles/Vol]14.6 mmol/LNormal6.0-15.0St. [facility]S Medical CenterComment on above:Performed By: #### HS TROP, SCAN CBC, BNP, BMP ####[address] [address] USASodium [Moles/volume] in Serum or PlasmaOrdered By: Kait Dan on 23-26-7678Pewupd [Moles/Vol]138 mmol/L Hfyhwg138-395BcugasvakSt. Mary'S Medical CenterComment on above:Performed By: #### HS TROP, SCAN CBC, BNP, BMP ####[address] [address] USASpecific gravity Test strip (U) [Rel density]Ordered By: Kait Dan on 67-19-9818Pnioybys gravity (U) [Rel density]1.009 1.001-1.030[facility] Medical Centerpecific gravity (U) [Rel density] Specific gravity of Urine by Test strip1.001-1.030St. [facility]S Medical CenterTroponin I High Sensitivityon 29-09-2585Fcfduycx I High Sensitivity4.5 pg/mLNormal0.0-20.0The [facility] Physician GroupComment on above:Result Comment: PERFORMED BY:[address] [place]Dar[place]MaryWE[place], [place] [phone] MEDICAL DIRECTORCLIFFORD LOBATO M.D.Performed By: #### HS TROP ####[address] [address] USATroponin I High Sensitivity9.2 pg/mLNormal0.0-20.0The [facility] Physician GroupComment on above:Result Comment: PERFORMED BY:[address] [place]Mary[place], [place] [phone] MEDICAL DIRECTORCLIFFORD LOBATO M.D.Performed By: #### HS TROP, SCAN CBC, BNP, BMP ####[address] [address] [place] Troponin I.cardiac [Mass/volume] in Serum or Plasma by Detection limit <= 0.01 ng/Ordered By: Kait Dan on 08-12-0705Rejhqpvv I.cardiac DL <= 0.01 ng/mL [Mass/Vol]4.5 pg/mL0.0-20.0St. [facility]S Medical CenterTroponin I.cardiac DL <= 0.01 ng/mL [Mass/Vol]Troponin I.cardiac [Mass/volume] in Serum or Plasma by Detection limit <= 0.01 ng/0.0-20.0St[facility] Medical CenterUrea nitrogen [Mass/volume] in Serum or PlasmaOrdered By: Kait Dan on 35-08-7636Svtd nitrogen [Mass/Vol]46 mg/dLBaker Memorial Hospital-St. Mary'S Medical CenterComment on above:Performed By: #### HS TROP, SCAN CBC, BNP, BMP ####[address] [address] [place] Urinalysison 31-85-9076Qvsiokxhs,UrineNegativeNormalNegativeThe [facility] Physician GroupComment on above:Order Comment: Name Collection Type:: Clean- Voided MidstreamPerformed By: #### CEPHEID NEG, UA, COVID19 FLU RSV ####[place] [address] USAGlucose Ql (U)500 mg/dLJFK Medical Center Physician GroupComment on above:Order Comment: Name Collection Type:: Clean-Voided MidstreamPerformed By: #### CEPHEID NEG, UA, COVID19 FLU RSV ####[id number] USANitrite,UrineNegativeNormalNegativeThe [facility] Physician GroupComment on above:Order Comment: Name Collection Type:: Clean- Voided MidstreamPerformed By: #### CEPHEID NEG, UA, COVID19 FLU RSV ####[address] [address] USAOccult Blood,UrineNegativeNormalNegativeThe [facility] Physician GroupComment on above: Order Comment: Name Collection Type:: Clean-Voided MidstreamResult Comment: PERFORMED BY:[address]DarrianMaryWE[place]ON, [place] [phone] MEDICAL BRISA LOBATO M.D.Performed By: #### CEPHEID NEG, UA, COVID19 FLU RSV ####[address] [place] [address] USAProtein,UrineNegativeNormalNegativeThe [facility] Physician GroupComment on above:Order Comment: Name Collection Type:: Clean- Voided MidstreamPerformed By: #### CEPHEID NEG, UA, COVID19 FLU RSV ####[address] [address] [place] Specificy Mobile,Urine1.497Luyodj0.001-1.030The [facility] Comment on above:Order Comment: Name Collection Type:: Clean-Voided Midstream Performed By: #### CEPHEID NEG, UA, COVID19 FLU RSV ####[address] USAUrobilinogen,UrineNormalNormal NormalThe [facility] Physician GroupComment on above:Order Comment: Name Collection Type:: Clean-Voided MidstreamPerformed By: #### CEPHEID NEG, UA, COVID19 FLU RSV ####[address] [address] USAUrine appearanceOrdered By: Kait Dan on 03-81-2100Dcomwwaoyo (U) ClearWestern Reserve HospitalComment on above:Order Comment: Name Collection Type:: Clean-Voided MidstreamPerformed By: #### CEPHEID NEG, UA, COVID19 FLU RSV ####[address] USAUrobilinogen Test strip (U) [Mass/Vol]Ordered By: Kait Dan on 65-70-0955Qedsrrvxythj (U) [Mass/Vol]Normal mg/dLNoMarietta Osteopathic ClinicUrobilinogen (U) [Mass/Vol]Urobilinogen [Mass/volume] in Urine by Test stripUniversity Hospitals Parma Medical CenterXR chest 2V*on 72-19-6539BU chest 2V*NormalThe [facility] Physician GrouppH Test strip (U)Ordered By: Kait Dan on 32-21-9686pC (U)pH of Urine by Test strip5.0-9.0[facility] Medical CenterpH of Urine by Test stripOrdered By: Kait Dan on 03-03-2024 pH (U)5.0 [pH]Normal5.0-9.0St. [facility] Medical CenterComment on above: Order Comment: Name Collection Type:: Clean-Voided MidstreamPerformed By: #### CEPHEID NEG, UA, COVID19 FLU RSV ####[facility] [address] [place] [address] USACoding Queryon [id number] QueryCoding Query From: Eliz Diaz RN To: [...] Name: MYRA PICKARD SR; Caller Number: H NormalMercy Health Defiance HospitalGeneral Message Officeon [phone] Message Office General Message Office --- --- --- --- --- --- --- --- --- From: Rosa, DirectInbox To: MYRA PICKARD SR Sent: 02/22/24 02:30:41 AM EDT Subject: Discharge Summary Ready to View A summary regarding your recent visit is available in the Documents section of your health record.[facility] Hospitalurgical Pathology Reporton [id number] Pathology ReportKettering Health Preble [address] [place] [address]- Surgical Pathology Report Collected Date/Time: 02/12/2024 14:13 EDT Pathologist: Moncho Blood MD Received Date/Time: 02/13/2024 07:26 EDT Simon HERRERA, Mike Montes MD, Mike Cain Surgical Pathology Report - 02/22/2024 14:10 EDT - Auth (Verified) Final Diagnosis RIGHT LOWER EXTREMITY, CRUKW-KOL-GGRL AMPUTATION: - Gangrenous ulcer and artery atherosclerosis. - Seborrheic keratosis. - No evidence of osteomyelitis. - Resection margin uninvolved by acute inflammation. (Electronic Signature) Yan. 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 [...] pigmented lesion measuring 0.2 x 0.2 cm. 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 Dunne in Frozen Section Room at 1400. (DC) DC:MCA Microscopic Description Microscopic examination performed unless gross only specified.NormalMercy Health Defiance HospitalComment on above:Performed By: #### [id number] #### [facility] [address], [place] [address]OEAjw 35-36-4265Vxfsl gap [Moles/Vol]8 mmol/LNormal6-16Mer[facility] Defiance HospitalComment on above:Performed By: #### [id number] #### [facility] [address], [place] [address]Qyzqcyk [Mass/Vol]8.6 mg/dLLow8.9-11.1FAvita Health System Bucyrus HospitalComment on above:Performed By: #### [id number] #### [facility] [address], [place] [address]Thhdiipr [Moles/Vol]100 mmol/ZPhg003-159YjwlnpMercy Health Defiance HospitalComment on above:Performed By: #### [id number] #### [facility] [address], [place] [address]NP[address] [Moles/Vol]30 mmol/MKadybr96-68IdkeqjMercy Health Defiance Hospital Comment on above:Performed By: #### [id number] #### [facility] [address], [place] [address]Uawjpdsluf [Mass/Vol]1.8 mg/dLHigh0.5-1.3FAvita Health System Bucyrus HospitalComment on above:Performed By: #### [id number] #### [facility] [address], [place] [address]Wlwobfj [Mass/Vol]169 mg/kQHiqzlo17-001PjrxqbMercy Health Defiance HospitalComment on above:Performed By: #### [id number] #### [facility] [address], [place] [address]Pkzvbamir [Moles/Vol]3.7 mmol/LNormal3.5-5.3FAvita Health System Bucyrus HospitalComment on above:Performed By: #### [id number] #### [facility] [address] [place] [address]Hhpkju [Moles/Vol]134 mmol/NLlo760-546UztlagMercy Health Defiance HospitalComment on above:Performed By: #### [id number] #### [facility] [address] [place] [address]Wyrf nitrogen [Mass/Vol]26 mg/dLHigh5-21Mer[facility] Def[facility] HospitalComment on above:Performed By: #### [id number] #### [facility] [address] [place] [address]Hzpj nitrogen/Creatinine [Mass ratio]14 No FrxlwJkxnjc37-37 [facility] HospitalComment on above:Performed By: #### [id number] #### [facility] [address] [place] [address]FMG w/ Auto Diffon 84-74-5402Srrfmftpy/100 WBC (Bld)0.7 %Normal 0.0-2.0[facility] Def[facility] HospitalComment on above:Performed By: #### [id number] #### [facility] [address] [place] [address]Dopnnqpxq/Leukocytes Auto (Bld) [Pure # fraction]0.1 E9/LNormal 0.0-0.2FAvita Health System Bucyrus HospitalComment on above:Performed By: #### [id number] #### [facility] [address] [place] [address]Nmtoghovbln (Bld) [#/Vol]0.4 E9/LNormal0.0-0.5FAvita Health System Bucyrus HospitalComment on above:Performed By: #### [id number] #### [facility] [address] [place] [address]Vlalcieksce/100 WBC (Bld)3.6 %Normal0.0-8.0[facility] Def[facility] HospitalComment on above:Performed By: #### [id number] #### [facility] [address], [place] [address]Xxvglydashz distribution width (RBC) [Ratio]21.4 %High10.9-14.2 [facility] HospitalComment on above:Performed By: #### [id number] #### [facility] [address], [place] [address]Xdfpuuvvmz (Bld) [Volume fraction]25.6 %Low37.7-49.0[facility] Def[facility] HospitalComment on above:Performed By: #### [id number] #### [facility] [address], [place] [address]Qcpccwdhgz (Bld) [Mass/Vol]8.1 g/dLLow13.5-17.5FAvita Health System Bucyrus HospitalComment on above:Performed By: #### [id number] #### [facility] [address] [place] [address]Ukkvgudyuzd Auto Ql (Bld)PRESENTInvalid Interpretation Code [facility] HospitalComment on above:Performed By: #### [id number] #### [facility] [address] [place] [address]Tikzxhcyhub (Bld) [#/Vol]1.5 E9/LNormal1.0-4.0[facility] HospitalComment on above:Performed By: #### [id number] #### [facility] [address] [place] [address]Mspzfvxoxra/100 WBC (Bld)12.4 %Low14.0-50.0[facility] HospitalComment on above:Performed By: #### [id number] #### [facility] [address] [place] [address]WTD (RBC) [Entitic mass]22.3 pgLow27.0-34.0[facility] HospitalComment on above:Performed By: #### [id number] #### [facility] [address] [place] [address]VVRD (RBC) [Mass/Vol]31.5 g/bOLfizzw90.4-36.0[facility] HospitalComment on above:Performed By: #### [id number] #### [facility] [address] [place] [address]JFQ (RBC) [Entitic vol]70.7 fLLow80.0-100.0[facility] HospitalComment on above:Performed By: #### [id number] #### [facility] [address] [place] [address]Ufspsnkpik Ql (Bld)PRESENTInvalid Interpretation CodeMercy Health Defiance HospitalComment on above:Performed By: #### [id number] #### [facility] [address] [place] [address]Nxhrrmdwj (Bld) [#/Vol]1.1 E9/LHigh0.2-1.0[facility] HospitalComment on above:Performed By: #### [id number] #### [facility] [address] [place] [address]Svkdfzxivmx (Bld) [#/Vol]9.3 E9/LHigh2.0-7.5FAvita Health System Bucyrus HospitalComment on above:Performed By: #### [id number] #### [facility] [address] [place] [address]Vlqrrszjvfc/100 WBC (Bld)74.6 %Linyqg85.0-75.0[facility] HospitalComment on above:Performed By: #### [id number] #### [facility] [address] [place] [address]Vtndcbtk mean volume (Bld) [Entitic vol]8.6 fLNormal6.4-10.8 [facility] HospitalComment on above:Performed By: #### [id number] #### [facility] [address] [place] [address]Niandsecq (Bld) [#/Vol]481.0 E9/FRztbwk305.0-500.0[facility] HospitalComment on above:Performed By: #### [id number] #### [facility] [address], [place] [address]Qqkuhhphi Large LM Ql (Bld)PRESENTInvalid Interpretation Code [facility] HospitalComment on above:Performed By: #### [id number] #### [facility] [address], [place] [address]DEQ (Bld) [#/Vol]3.6 E12/LLow4.3-5.9[facility] Comment on above:Performed By: #### [id number] #### [facility] [address], [place] [address]UBH size Nom (Bld)NORMALInvalid Interpretation CodeMercy Health Defiance HospitalComment on above:Performed By: #### [id number] #### [facility] [address], [place] [address]ZPA corrected for nucl RBC Auto (Bld) [#/Vol]12.5 E9/LHigh 4.0-11.0[facility] HospitalComment on above:Performed By: #### [id number] #### [facility] [address], [place] [address]OCOTCSHKHBypbvag By: Jericho Sarmiento on 71-62-7527Kdhmbnj [Mass/Vol]227 mg/gYFpiz32 - 99 mg/dLCLEVELAND ARE[facility] POC SubsectionComment on above:Result Comment: Notified RN/MDPOC Device [id number] 1Invalid Interpretation Code [facility] POC SubsectionPOC User [id number] 1Invalid Interpretation CodeFT[facility] POC SubsectionPOC UsernameOJUKWU, ABRAHANWJONOMELIEInvalid Interpretation CodeFT POC SubsectionGlucose [Mass/Vol]177 mg/eEFvgc50 - 99 mg/dLFTMC POC SubsectionComment on above:Result Comment: Notified RN/MDPOC Device [id number] 1Invalid Interpretation CodeFT[facility] POC SubsectionPOC User [id number] 1Invalid Interpretation Code[facility] POC SubsectionPOC UsernameOJUKDanyellU, CHUKWUEMELIEInvalid Interpretation CodeFT[facility] POC SubsectionGlucose [Mass/Vol]158 mg/dZAabd22 - 99 mg/dLCLEVELAND AREA [facility] POC SubsectionPOC Device [id number] 1Invalid Interpretation Code [facility] POC SubsectionPOC User [id number] 1Invalid Interpretation CodeCLEVELAND [facility]A [facility] POC SubsectionPOC UsernamDamion FADIInvalid Interpretation CodeCLEVELAND AREA [facility] POC Subsection CHEMISTRYOrdered By: SYSTEM SYSTEM on 07-12-7570Kbbmn gap [Moles/Vol]8 mmol/L Normal6 - 16 mEq/LRemisol ChemCalcium [Mass/Vol]8.6 mg/dLLow8.9 - 11.1 mg/dL Remisol ChemChloride [Moles/Vol]100 mmol/GYfa348 - 111 mmol/LRemisol ChemCO2 [Moles/Vol]30 mmol/LWvfmvs75 - 31 mmol/LRemisol ChemCreatinine [Mass/Vol]1.8 mg/dLHigh0.5 - 1.3 mg/dLRemisol QwfqjUXD50 mL/min/1.73 m2Low>=59mL/min/1.73 m2 Remisol ChemGlucose [Mass/Vol]169 mg/oSIdknzw14 - 199 mg/dLRemisol ChemPotassium [Moles/Vol]3.7 mmol/LNormal3.5 - 5.3 mmol/LRemisol ChemSodium [Moles/Vol]134 mmol/MXmr107 - 145 mmol/LRemisol ChemUrea nitrogen [Mass/Vol]26 mg/dLHigh5 - 21 mg/dLRemisol ChemUrea nitrogen/Creatinine [Mass ratio]14 mg/ycAxrqqr16 - 20 Remisol ChemCapillary Glucose POCon 95-38-3237Khnbbvt [Mass/Vol]227 mg/dLHigh 55-99[facility] HospitalComment on above:Result Comment: Notified RN/ Performed By: #### [id number] #### [facility] [address], [place] [address]Deothum [Mass/Vol]177 mg/yPCdkl76-60IrddlfMercy Health Defiance Hospital Comment on above:Result Comment: Notified RN/JULIOerformed By: #### [id number] #### [facility] [address], [place] [address]Iktfgop [Mass/Vol]158 mg/lXAeky25-07RnliwhMercy Health Defiance Hospital Comment on above:Performed By: #### [id number] #### [facility] [address] [place], [place] [address]Stvldzasl Note-Nursingon 98-80-1237Xmmickdvy Note-Nursing Discharge Note-Nursing MYRA PICKARD SR :1965 [...] TERESA LYNCH DO, FAM When: Where: [address] [place] [address]- [facility] Within 2 weeks Comments: Call for followup appointment Where: [address] [place] [address]- Medications What How Much When [...] meals and at bedtime) With meals New Tenizn (Tenzin packet) By Mouth 2 times a [...] mg Tab) 0.5 Tablets (more content not included)...[facility] HospitalHEMATOLOGYOrdered By: SYSTEM SYSTEM on 03-23-3586Pdkkxxite/100 WBC (Bld)0.7 %Normal0.0 - 2.0 %Remisol Heme [...] - 34.0 pg Remisol HemeMCHC (RBC) [Mass/Vol]31.5 g/tVXutpco92.4 - 36.0 gm/dLRemisol HemeMCV (RBC) [Entitic vol]70.7 fLLow80.0 - 100.0 fLRemisol HemeMicrocytes Ql (Bld) PRESENT *NA* (02/21/24 6:02 AM)Invalid Interpretation CodeRemisol HemeMonocytes (Bld) [#/Vol] 1.1 E9/LHigh0.2 - 1.0 E9/LRemisol HemeMonocytes/100 WBC (Bld)8.7 %Normal4.0 - 14.0 %Remisol HemeNeutrophils (Bld) [#/Vol]9.3 E9/LHigh2.0 - 7.5 E9/LRemisol HemeNeutrophils/100 WBC (Bld)74.6 %Rwdrpu86.0 - 75.0 %Remisol HemePlatelet mean volume (Bld) [Entitic vol]8.6 fLNormal6.4 - 10.8 fLRemisol HemePlatelets (Bld) [#/Vol]481.0 E9/NTygfqy073.0 - 500.0 E9/LRemisol HemePlatelets Large LM Ql (Bld) PRESENT *NA* (02/21/24 6:02 AM)Invalid Interpretation CodeRemisol HemeRBC (Bld) [#/Vol]3.6 E12/LLow4.3 - 5.9 E12/LRemisol HemeRBC size Nom (Bld)NORMAL *NA* (02/21/24 6:02 AM)Invalid Interpretation CodeRemisol HemeWBC corrected for nucl RBC Auto (Bld) [#/Vol]12.5 E9/LHigh4.0 - 11.0 E9/LRemisol HemeInpatient Clinical Summaryon [id number] Clinical SummaryInpatient Clinical Summary [address] [address] Clinical Summary Person Information: Name: MYRA PICKARD SR Age: 58 Years : 1965 Sex: Male PCP: TERESA LYNCH DO Marital Status: Race: White Ethnicity: Non- or Language: Cymro Visit Id: Visit Reason: I70.261 Speciality: Acuity: Enc Type: Inpatient Med Service: Medical Arrival: 02/12/2024 11:13:26 Discharge: Dispo Type: Address: [address] [place] [id number] Provider Notes: Diagnosis: 1:Hx of right BKA; [...] With: Address: When: TERESA LYNCH DO [address] [address] With: Address: When: Mike Montes MD [address] [place] [address] Within 2 weeks Comments: Call for followup appointment Patient Education Information: Living With an AmputationWyandot Memorial HospitalInpatient Patient Summaryon [id number] Patient SummaryInpatient Patient Summary [address] [address] Patient Discharge Instructions PERSON INFORMATION [...] up: With: Address: When: TERESA LYNCH DO, [facility] [address] [place] [address] With: Address: When: Simon [facility]ERRERA, [facility] [address] [place] [address] Within 2 weeks Comments: Call for [...] 0.5 Tablets By M (more content not included)...[facility] HospitalInterdisciplinary Note - Case Manageron 19-16-5426Koxdclrwcgaskgemv Note - Java Enterprise Architect Interdisciplinary Note - Java Enterprise Architect Precert for [place] has been obtained. Patient informed and his was also contacted. Both remain in agreement with the discharge plan. Patient's will [facility] by 1700 this evening and will transport patient to [place] once he has finished his dinner. Hospitalist, RN, and CRM aware.[facility] HospitalComment on above:Result Comment: Electronically Signed By: Evens SÁNCHEZ, Fely García.nile\Date and Time Signed: 02/21/24 18:08 EDTInterdisciplinary Note - Social Workeron 02-21-2024 Interdisciplinary Note - Social WorkerInterdisciplinary Note - Pressure Test Operator Precert for [place] has been obtained. Patient informed and his was also contacted. Both remain in agreement with the discharge plan. Patient's will arrive [facility] by 1700 this evening and will transport patient to [place] once he has finished his dinner. Hospitalist, RN, and CRM aware.[facility] HospitalInterdisciplinary Note - Pressure Test Operator Interdisciplinary Note - Pressure Test Operator Precert for [place] has been obtained. Patient informed and his was also contacted. Both remain in agreement with the discharge plan. Patient's will arrive [facility] by 1700 this evening and will transport patient to [place] once he has finished his dinner. Hospitalist, RN, and CRM aware.[facility] HospitaleGFRon 20-63-8297nEXU76 mL/min/1.73 m2Low >=59[facility] HospitalComment on above:Order Comment: Order added by Discern Expert.Performed By: #### [id number] #### [facility] [address], [place] [address]SDCko 90-14-8444Vlqmp gap [Moles/Vol]15 mmol/LNormal6-16[facility] HospitalComment on above:Performed By: #### [id number] #### [facility] [address], [place] [address]Zfrslgf [Mass/Vol]9.4 mg/dLNormal8.9-11.1FAvita Health System Bucyrus HospitalComment on above:Performed By: #### [id number] #### [facility] [address], [place] [address]Ukfqswon [Moles/Vol]97 mmol/ANcp181-422BbcxwkMercy Health Defiance HospitalComment on above:Performed By: #### [id number] #### [facility] [address], [place] [address]QA8 [Moles/Vol]28 mmol/MUdxibj56-80AmvibeMercy Health Defiance Hospital Comment on above:Performed By: #### [id number] #### [facility] [address], [place] [address]Oqhjbzrydr [Mass/Vol]1.8 mg/dLHigh0.5-1.3FAvita Health System Bucyrus HospitalComment on above:Performed By: #### [id number] #### [facility] [address], [place] [address]Drplamb [Mass/Vol]259 mg/hYWzte42-672EcxkwzMercy Health Defiance HospitalComment on above:Performed By: #### [id number] #### [facility] [address], [place] [address]Asyxdspuw [Moles/Vol]3.9 mmol/LNormal3.5-5.3FAvita Health System Bucyrus HospitalComment on above:Performed By: #### [id number] #### [facility] [address], [place] [address]Yntzdr [Moles/Vol]136 mmol/DKdotxp017-225XrufawMercy Health Defiance HospitalComment on above:Performed By: #### [id number] #### [facility] [address], [place] [address]Twru nitrogen [Mass/Vol]27 mg/dLHigh5-21[facility] HospitalComment on above:Performed By: #### [id number] #### [facility] [address], [place] [address]Gtiv nitrogen/Creatinine [Mass ratio]15 No ReajvTkrizg20-55 [facility] HospitalComment on above:Performed By: #### [id number] #### [facility] [address] [place] [address]OVL w/ Auto Diffon 87-57-9214Pgimlbmqv/100 WBC (Bld)0.7 %Normal 0.0-2.0[facility] HospitalComment on above:Performed By: #### [id number] #### [facility] [address] [place] [address]Pflghmgyp/Leukocytes Auto (Bld) [Pure # fraction]0.1 E9/LNormal 0.0-0.2FAvita Health System Bucyrus HospitalComment on above:Performed By: #### [id number] #### [facility] [address] [place] [address]Mddtllmpqhr (Bld) [#/Vol]0.2 E9/LNormal0.0-0.5FAvita Health System Bucyrus HospitalComment on above:Performed By: #### [id number] #### [facility] [address] [place] [address]Dkxhjqtoian/100 WBC (Bld)1.6 %Normal0.0-8.0[facility] HospitalComment on above:Performed By: #### [id number] #### [facility] [address] [place] [address]Vqtahatwdvf distribution width (RBC) [Ratio]21.6 %High10.9-14.2 [facility] HospitalComment on above:Performed By: #### [id number] #### [facility] [address] [place] [address]Pcvbbslaxl (Bld) [Volume fraction]27.5 %Low37.7-49.0[facility] HospitalComment on above:Performed By: #### [id number] #### [facility] [address] [place] [address]Yhepnexdry (Bld) [Mass/Vol]8.9 g/dLLow13.5-17.5FAvita Health System Bucyrus HospitalComment on above:Performed By: #### [id number] #### [facility] [address] [place] [address]Hojibzdfndg Auto Ql (Bld)PRESENTInvalid Interpretation Code [facility] HospitalComment on above:Performed By: #### [id number] #### [facility] [address] [place] [address]Vjvywtsylbk (Bld) [#/Vol]1.3 E9/LNormal1.0-4.0[facility] HospitalComment on above:Performed By: #### [id number] #### [facility] [address] [place] [address]Ezygrtdklvb/100 WBC (Bld)8.3 %Low14.0-50.0[facility] HospitalComment on above:Performed By: #### [id number] #### [facility] [address] [place] [address]INT (RBC) [Entitic mass]22.9 pgLow27.0-34.0[facility] HospitalComment on above:Performed By: #### [id number] #### [facility] [address] [place] [address] 28229BUVV (RBC) [Mass/Vol]32.2 g/nMBywdjk91.4-36.0[facility] HospitalComment on above:Performed By: #### [id number] #### [facility] [address] [place] [address]94[address]NNM (RBC) [Entitic vol]70.9 fLLow80.0-100.0[facility] HospitalComment on above:Performed By: #### [id number] #### [facility] [address] [place] [address]Iblslckpxw Ql (Bld)PRESENTInvalid Interpretation CodeMercy Health Defiance HospitalComment on above:Performed By: #### [id number] #### [facility] [address] [place] [address]Jwpwbhvnw (Bld) [#/Vol]1.2 E9/LHigh0.2-1.0[facility] HospitalComment on above:Performed By: #### [id number] #### [facility] [address] [place] [address]Oxitkspoafv (Bld) [#/Vol]12.7 E9/LHigh2.0-7.5FAvita Health System Bucyrus HospitalComment on above:Performed By: #### [id number] #### [facility] [address] [place] [address]Saztliluxer/100 WBC (Bld)81.5 %High36.0-75.0[facility] HospitalComment on above:Performed By: #### [id number] #### [facility] [address] [place] [address]Mpmxmwhn797.0 E9/EEtjk368.0-500.0[facility] Comment on above:Performed By: #### [id number] #### [facility] [address] [place] [address]Sraailvq mean volume (Bld) [Entitic vol]8.6 fLNormal6.4-10.8 [facility] HospitalComment on above:Performed By: #### [id number] #### [facility] [address] [place] [address] 87692QNG (Bld) [#/Vol]3.9 E12/LLow4.3-5.9[facility] Comment on above:Performed By: #### [id number] #### [facility] [address] [place] [address] 07[address]HIU size Nom (Bld)SEE MORPHOLOGYInvalid Interpretation Code [facility] HospitalComment on above:Performed By: #### [id number] #### [facility] [address] [place] [address] 88[address]ODJ corrected for nucl RBC Auto (Bld) [#/Vol]15.6 E9/LHigh 4.0-11.0[facility] HospitalComment on above:Performed By: #### [id number] #### [facility] [address] [place] [address] [place] [address]VARDRENVQOkixpqe By: SYSTEM SYSTEM on 00-26-7352Jmfwu gap [Moles/Vol]15 mmol/LNormal6 - 16 mEq/LRemisol ChemCalcium [Mass/Vol]9.4 mg/dL Normal8.9 - 11.1 mg/dLRemisol ChemChloride [Moles/Vol]97 mmol/GKgc964 - 111 mmol/LRemisol ChemCO2 [Moles/Vol]28 mmol/WYybprq14 - 31 mmol/LRemisol Chem Creatinine [Mass/Vol]1.8 mg/dLHigh0.5 - 1.3 mg/dLRemisol VarliBGD00 mL/min/1.73 m2Low>=59mL/min/1.73 p7Aeevknk ChemGlucose [Mass/Vol]259 mg/iCDbbn49 - 199 mg/dL Remisol ChemPotassium [Moles/Vol]3.9 mmol/LNormal3.5 - 5.3 mmol/LRemisol Chem Sodium [Moles/Vol]136 mmol/GLhqqje426 - 145 mmol/LRemisol ChemUrea nitrogen [Mass/Vol]27 mg/dLHigh5 - 21 mg/dLRemisol ChemUrea nitrogen/Creatinine [Mass ratio]15 mg/mrSdrahc54 - 20Remisol ChemCapillary Glucose POCon 40-58-4156Dstmtbt [Mass/Vol]192 mg/vDFvyv61-47GgqqhwMercy Health Defiance HospitalComment on above:Result Comment: Notified RN/MDPerformed By: #### [id number] #### [facility] [address], [place] [address]Ejbnbnw [Mass/Vol]180 mg/rOKmui03-79WmbxweMercy Health Defiance Hospital Comment on above:Result Comment: Notified RN/MDPerformed By: #### [id number] #### [facility] [address], [place] [address]Fslpwuf [Mass/Vol]104 mg/nRJqum69-46OzeztkMercy Health Defiance Hospital Comment on above:Result Comment: Notified RN/MDPerformed By: #### [id number] #### [facility] [address], [place] [address]Atwzyzc [Mass/Vol]165 mg/mHAoxe31-44Eidgwe[address] Comment on above:Result Comment: Notified RN/MDPerformed By: #### [id number] #### [facility] [address], [place] [address]Iknetww [Mass/Vol]224 mg/mMXlrj67-84Wkdmic[address] Comment on above:Result Comment: Notified RN/MDPerformed By: #### [id number] #### [facility] [address], [place] [address]Zpwbbl Queryon [id number] QueryCoding Query From: Eliz Diaz RN To: [...] answer is desired or expected. Thank you!eliz [id number] County HospitalHEMATOLOGYOrdered By: SYSTEM SYSTEM on 60-97-3154Bbqljsxcf/100 WBC (Bld) 0.7 %Normal0.0 - 2.0 %Remisol [...] pgLow27.0 - 34.0 pgRemisol HemeMCHC (RBC) [Mass/Vol]32.2 g/kPLicpuw33.4 - 36.0 gm/dLRemisol HemeMCV (RBC) [Entitic vol]70.9 fLLow80.0 - 100.0 fLRemisol HemeMicrocytes Ql (Bld)PRESENT *NA* (02/20/24 5:53 AM)Invalid Interpretation CodeRemisol HemeMonocytes (Bld) [#/Vol] 1.2 E9/LHigh0.2 - 1.0 E9/LRemisol HemeMonocytes/100 WBC (Bld)7.9 %Normal4.0 - 14.0 %Remisol HemeNeutrophils (Bld) [#/Vol]12.7 E9/LHigh2.0 - 7.5 E9/LRemisol HemeNeutrophils/100 WBC (Bld)81.5 %High36.0 - 75.0 %Remisol JkguEildidaz026.0 E9/DDvck932.0 - 500.0 E9/LRemisol HemePlatelet mean volume (Bld) [Entitic vol] 8.6 fLNormal6.4 - 10.8 fLRemisol HemeRBC (Bld) [#/Vol]3.9 E12/LLow4.3 - 5.9 E12/LRemisol HemeRBC size Nom (Bld)SEE MORPHOLOGY *NA* (02/20/24 5:53 AM)Invalid Interpretation CodeRemisol HemeWBC corrected for nucl RBC Auto (Bld) [#/Vol]15.6 E9/LHigh4.0 - 11.0 E9/LRemisol HemeInterdisciplinary Note - Case Manageron 82-77-8479Eanxiotntztqqvlhy Note - Java Enterprise Architect Interdisciplinary Note - Java Enterprise Architect This SW rounded with patient this morning. He is aware that precert is still pending for [place] and SW will update him as soon as determination is received. SW will also update his . Call placed to patient's this afternoon and a message was left letting her know that the precert remains pending at this time.[facility] HospitalComment on above:Result Comment: Electronically Signed By: Fely Narvaez.br\Date and Time Signed: 02/20/24 15:25 EDTInterdisciplinary Note - Case ManagerInterdisciplinary Note - Java Enterprise Architect This SW rounded with patient this morning. He is aware that precert is still pending for [place] and SW will update him as soon as determination is received. SW will also update his .[facility] HospitalComment on above:Result Comment: Electronically Signed By: Fely Narvaez.br\Date and Time Signed: 02/20/24 13:55 EDTeGFRon 20-38-7916iZOP13 mL/min/1.73 m2Low>=59[facility] HospitalComment on above:Order Comment: Order added by Discern Expert.Performed By: #### [id number] #### [facility] [address] [place], [place] [address]VSLrc 33-54-1619Klrhr gap [Moles/Vol]12 mmol/LNormal6-16[facility] HospitalComment on above:Performed By: #### [id number] #### [facility] [address], [place] [address]Djhrwyn [Mass/Vol]8.9 mg/dLNormal8.9-11.1FAvita Health System Bucyrus HospitalComment on above:Performed By: #### [id number] #### [facility] [address], [place] [address]Mwljxnsc [Moles/Vol]100 mmol/SSou030-885JiagjqMercy Health Defiance HospitalComment on above:Performed By: #### [id number] #### [facility] [address], [place] [address]RY2 [Moles/Vol]28 mmol/JKkfcea55-52OkxztkMercy Health Defiance Hospital Comment on above:Performed By: #### [id number] #### [facility] [address], [place] [address]Sflixhvmsi [Mass/Vol]1.7 mg/dLHigh0.5-1.3FAvita Health System Bucyrus HospitalComment on above:Performed By: #### [id number] #### [facility] [address], [place] [address]Xppamtv [Mass/Vol]235 mg/oEHifa65-243ZnvqwuMercy Health Defiance HospitalComment on above:Performed By: #### [id number] #### [facility] [address], [place] [address]Obhshketz [Moles/Vol]4.1 mmol/LNormal3.5-5.3FAvita Health System Bucyrus HospitalComment on above:Performed By: #### [id number] #### [facility] [address], [place] [address]Jxnpor [Moles/Vol]136 mmol/BHuqdwf615-722ZbsgxeMercy Health Defiance HospitalComment on above:Performed By: #### [id number] #### [facility] [address], [place] [address]Xcsb nitrogen [Mass/Vol]25 mg/dLHigh5-21[facility] HospitalComment on above:Performed By: #### [id number] #### [facility] [address] [place] [address] 86[address]Scgr nitrogen/Creatinine [Mass ratio]15 No CdietFwaqzr66-58 [facility] HospitalComment on above:Performed By: #### [id number] #### [facility] [address] [place] [address]NOW w/ Auto Diffon 04-33-6498Qtpzbfnvk/100 WBC (Bld)1.6 %Normal 0.0-2.0[facility] HospitalComment on above:Performed By: #### [id number] #### [facility] [address] [place] [address] 88[address]Gsaxhspld/Leukocytes Auto (Bld) [Pure # fraction]0.2 E9/LNormal 0.0-0.2FAvita Health System Bucyrus HospitalComment on above:Performed By: #### [id number] #### [facility] [address] [place] [address]Akucknpbcqt (Bld) [#/Vol]0.5 E9/LNormal0.0-0.5FAvita Health System Bucyrus HospitalComment on above:Performed By: #### [id number] #### [facility] [address] [place] [address] 498[address]Frgyykguieq/100 WBC (Bld)5.1 %Normal0.0-8.0[facility] HospitalComment on above:Performed By: #### [id number] #### [facility] [address] [place] [address] 179[address]Vprwkksknhf distribution width (RBC) [Ratio]21.6 %High10.9-14.2 [facility] HospitalComment on above:Performed By: #### [id number] #### [facility] [address] [place] [address] 453[address]Fyzkhwmcmr (Bld) [Volume fraction]24.4 %Low37.7-49.0[facility] HospitalComment on above:Performed By: #### [id number] #### [facility] [address], [place] [address]Gicovuocey (Bld) [Mass/Vol]7.9 g/dLLow13.5-17.5FAvita Health System Bucyrus HospitalComment on above:Performed By: #### [id number] #### [facility] [address], [place] [address]Qgncxtcpvnm Auto Ql (Bld)PRESENTInvalid Interpretation Code [facility] HospitalComment on above:Performed By: #### [id number] #### [facility] [address], [place] [address]Ogymgmwhyfy (Bld) [#/Vol]1.9 E9/LNormal1.0-4.0[facility] HospitalComment on above:Performed By: #### [id number] #### [facility] [address] [place] [address] 106[address]Vnxafeldsak/100 WBC (Bld)18.4 %Rkrikr52.0-50.0[facility] HospitalComment on above:Performed By: #### [id number] #### [facility] [address] [place] [address] 15849XSD (RBC) [Entitic mass]22.8 pgLow27.0-34.0[facility] HospitalComment on above:Performed By: #### [id number] #### [facility] [address] [place] [address]NBYJ (RBC) [Mass/Vol]32.3 g/cYJvrfxn96.4-36.0[facility] HospitalComment on above:Performed By: #### [id number] #### [facility] [address] [place] [address] 32383AIJ (RBC) [Entitic vol]70.4 fLLow80.0-100.0[facility] HospitalComment on above:Performed By: #### [id number] #### [facility] [address] [place] [address] 15496Sfyaqgwfd (Bld) [#/Vol]1.0 E9/LNormal0.2-1.0[facility] HospitalComment on above:Performed By: #### [id number] #### [facility] [address] [place] [address] 22158Qhqmztvguyt (Bld) [#/Vol]6.7 E9/LNormal2.0-7.5FAvita Health System Bucyrus HospitalComment on above:Performed By: #### [id number] #### [facility] [address] [place] [address] 10207Ojkgaqyyfxq/100 WBC (Bld)65.1 %Isttzd05.0-75.0[facility] HospitalComment on above:Performed By: #### [id number] #### [facility] [address] [place] [address] 68112Ctxympso448.0 E9/FCvxtjx550.0-500.0[facility] Comment on above:Performed By: #### [id number] #### [facility] [address] [place] [address] 04231Mlzjtmbm mean volume (Bld) [Entitic vol]8.1 fLNormal6.4-10.8 [facility] HospitalComment on above:Performed By: #### [id number] #### [facility] [address] [place] [address] 28388JOE (Bld) [#/Vol]3.5 E12/LLow4.3-5.9[facility] Comment on above:Performed By: #### [id number] #### [facility] [address] [place] [address] 77426ORT size Nom (Bld)SEE MORPHOLOGYInvalid Interpretation Code [facility] HospitalComment on above:Performed By: #### [id number] #### [facility] [address] [place] [address] 95098KNZ corrected for nucl RBC Auto (Bld) [#/Vol]10.3 E9/LNormal 4.0-11.0[facility] HospitalComment on above:Performed By: #### [id number] #### [facility] [address], [place] [address]IYLMGPOQJZbibwzl By: SYSTEM SYSTEM on 99-97-3848Vigvo gap [Moles/Vol]12 mmol/LNormal6 - 16 mEq/LRemisol ChemCalcium [Mass/Vol]8.9 mg/dL Normal8.9 - 11.1 mg/dLRemisol ChemChloride [Moles/Vol]100 mmol/HAvg665 - 111 mmol/LRemisol ChemCO2 [Moles/Vol]28 mmol/ZHhwqsj82 - 31 mmol/LRemisol Chem Creatinine [Mass/Vol]1.7 mg/dLHigh0.5 - 1.3 mg/dLRemisol YvimyAYZ18 mL/min/1.73 m2Low>=59mL/min/1.73 h3Qylqktz ChemGlucose [Mass/Vol]235 mg/mGCash87 - 199 mg/dL Remisol ChemPotassium [Moles/Vol]4.1 mmol/LNormal3.5 - 5.3 mmol/LRemisol Chem Sodium [Moles/Vol]136 mmol/GTxqypa647 - 145 mmol/LRemisol ChemUrea nitrogen [Mass/Vol]25 mg/dLHigh5 - 21 mg/dLRemisol ChemUrea nitrogen/Creatinine [Mass ratio]15 mg/snDaoopk14 - 20Remisol ChemCapillary Glucose POCon 79-81-2941Rzmcyrb [Mass/Vol]250 mg/bONijt83-71MsqwflMercy Health Defiance HospitalComment on above:Result Comment: Notified RN/MDPerformed By: #### [id number] #### [facility] [address], [place] [address]Xwbegfg [Mass/Vol]272 mg/gRInzb56-42YefkerMercy Health Defiance Hospital Comment on above:Result Comment: Notified RN/MDPerformed By: #### [id number] #### [facility] [address], [place] [address]Pgdsgnu [Mass/Vol]277 mg/gSShdd33-73QkyvetMercy Health Defiance Hospital Comment on above:Result Comment: Notified RN/MDPerformed By: #### [id number] #### [facility] [address], [place] [address]Mhvafby [Mass/Vol]217 mg/eGJmem28-87Tfnrio [facility] Comment on above:Result Comment: Notified RN/Saydaformed By: #### [id number] #### [facility] [address], [place] [address]LIVHPFPBYGEavakvp By: SYSTEM SYSTEM on 30-27-5661Bwuphrjlz/100 WBC (Bld)1.6 %Normal0.0 - 2.0 %Remisol HemeBasophils/Leukocytes [...] - 4.0 E9/LRemisol HemeLymphocytes/100 WBC (Bld)18.4 % Zpbduo85.0 - 50.0 %Remisol HemeMCH (RBC) [Entitic mass]22.8 pgLow27.0 - 34.0 pg Remisol HemeMCHC (RBC) [Mass/Vol]32.3 g/eMAaaqaz78.4 - 36.0 gm/dLRemisol HemeMCV (RBC) [Entitic vol]70.4 fLLow80.0 - 100.0 fLRemisol HemeMonocytes (Bld) [#/Vol] 1.0 E9/LNormal0.2 - 1.0 E9/LRemisol HemeMonocytes/100 WBC (Bld)9.8 %Normal4.0 - 14.0 %Remisol HemeNeutrophils (Bld) [#/Vol]6.7 E9/LNormal2.0 - 7.5 E9/LRemisol HemeNeutrophils/100 WBC (Bld)65.1 %Kabqta98.0 - 75.0 %Remisol VkfjEwhqejsd731.0 E9/VRdpqqw721.0 - 500.0 E9/LRemisol HemePlatelet mean volume (Bld) [Entitic vol] 8.1 fLNormal6.4 - 10.8 fLRemisol HemeRBC (Bld) [#/Vol]3.5 E12/LLow4.3 - 5.9 E12/LRemisol HemeRBC size Nom (Bld)SEE MORPHOLOGY *NA* (02/19/24 6:11 AM)Invalid Interpretation CodeRemisol HemeWBC corrected for nucl RBC Auto (Bld) [#/Vol]10.3 E9/LNormal4.0 - 11.0 E9/LRemisol Heme Interdisciplinary Note - Case Manageron 97-10-8156Udpcxrvpocgexkuvv Note - Case ManagerInterdisciplinary Note - Java Enterprise Architect This SW met with patient today to discuss discharge plans. Plan remains for patient to go to [facility] in [place] once precert is obtained. All updates have been sent to [facility] for theprecert, which was submitted on Monday. Patient requested that SW contact his once precert is obtained, or before the end of the day if not obtained today. This SW made a tc to patient's and let her know that precert is still pending. She voiced understanding.[facility] HospitalComment on above:Result Comment: Electronically Signed By: Fely Narvaez.nile\Date and Time Signed: 02/19/24 15:59 EDTInterdisciplinary Note - Case ManagerInterdisciplinary Note - Java Enterprise Architect This SW met with patient today to discuss discharge plans. Plan remains for patient to go to [facility] in [place] once precert is obtained. All updates have been sent to [facility] for theprecert, which was submitted on Monday. Patient requested that SW contact his once precert is obtained, or before the end of the day if not obtained today.[facility] HospitalComment on above:Result Comment: Electronically Signed By: Fely Narvaezbr\Date and Time Signed: 02/19/24 10:44 EDTOperative Reporton 27-57-5698Pktkpkrlw ReportOperative Report SURGERY DATE: 02/12/2024 PREOPERATIVE DIAGNOSIS: [...] counts were correct. Sully Valdez Dictated: 02/12/2024 [id number] Transcribed: 02/13/2024NoKettering Health MiamisburgComment on above:Result Comment: Electronically Signed By: Simon [...] The patient tolerated the procedure well without complications..[facility] HospitalComment on above:Result Comment: Electronically Signed By: MD Solomon Ahmad F\.br\Date and Time Signed: 02/19/24 08:36 EDTeGFRon 72-71-5218nESO08 mL/min/1.73 m2Low>=59[facility] HospitalComment on above:Order Comment: Order added by Discern Expert.Performed By: #### [id number] #### [facility] [address], [place] [address]Ymavykgtn Glucose POCon 01-91-1876Aiyeiph [Mass/Vol]348 mg/dL Lxtx54-81XgrkthMercy Health Defiance HospitalComment on above:Result Comment: Notified RN/MDPerformed By: #### [id number] #### [facility] [address], [place] [address]Wwctdvt [Mass/Vol]323 mg/qKYief58-83EmgslmMercy Health Defiance Hospital Comment on above:Result Comment: Notified RN/MDPerformed By: #### [id number] #### [facility] [address], [place] [address]Prdynzk [Mass/Vol]323 mg/iGDvum33-98DvuhsmMercy Health Defiance Hospital Comment on above:Result Comment: Notified RN/MDPerformed By: #### [id number] #### [facility] [address], [place] [address]Qyglhdu [Mass/Vol]210 mg/lTMgpc93-65AoacakMercy Health Defiance Hospital Comment on above:Result Comment: Notified RN/MDPerformed By: #### [id number] #### [facility] [address], [place] [address]SEYrk 65-02-5782Jotuk gap [Moles/Vol]13 mmol/LNormal6-16[facility] HospitalComment on above:Performed By: #### [id number] #### [facility] [address], [place] [address]Dmbrzzp [Mass/Vol]9.3 mg/dLNormal8.9-11.1FAvita Health System Bucyrus HospitalComment on above:Performed By: #### [id number] #### [facility] [address], [place] [address]Aauljfka [Moles/Vol]98 mmol/BFma558-910DjelojMercy Health Defiance HospitalComment on above:Performed By: #### [id number] #### [facility] [address], [place] [address]EJ9 [Moles/Vol]28 mmol/GChmmfw60-11MtsynvMercy Health Defiance Hospital Comment on above:Performed By: #### [id number] #### [facility] [address], [place] [address]Toluihcoxa [Mass/Vol]1.8 mg/dLHigh0.5-1.3FAvita Health System Bucyrus HospitalComment on above:Performed By: #### [id number] #### [facility] [address], [place] [address]Bucxspp [Mass/Vol]374 mg/sOYjua22-292BjexijMercy Health Defiance HospitalComment on above:Performed By: #### [id number] #### [facility] [address], [place] [address]Hpcrtowlh [Moles/Vol]4.6 mmol/LNormal3.5-5.3FAvita Health System Bucyrus HospitalComment on above:Performed By: #### [id number] #### [facility] [address], [place] [address]Pdgkac [Moles/Vol]134 mmol/XGyg229-757CvitwqMercy Health Defiance HospitalComment on above:Performed By: #### [id number] #### [facility] [address], [place] [address]Vhsu nitrogen [Mass/Vol]25 mg/dLHigh5-21[facility] HospitalComment on above:Performed By: #### [id number] #### [facility] [address], [place] [address]Xkuz nitrogen/Creatinine [Mass ratio]14 No WdlhtBtjhoj59-70 [facility] HospitalComment on above:Performed By: #### [id number] #### [facility] [address], [place] [address]TEV w/ Auto Diffon 28-46-4178Uzqsjfbdb/100 WBC (Bld)1.0 %Normal 0.0-2.0[facility] HospitalComment on above:Performed By: #### [id number] #### [facility] [address] [place] [address] 77[address]Uqbgrvufy/Leukocytes Auto (Bld) [Pure # fraction]0.1 E9/LNormal 0.0-0.2FAvita Health System Bucyrus HospitalComment on above:Performed By: #### [id number] #### [facility] [address] [place] [address] 92727Hdrsnrqkhgp (Bld) [#/Vol]0.5 E9/LNormal0.0-0.5FAvita Health System Bucyrus HospitalComment on above:Performed By: #### [id number] #### [facility] [address] [place] [address] 448[address]Pojzcomzogq/100 WBC (Bld)5.0 %Normal0.0-8.0[facility] HospitalComment on above:Performed By: #### [id number] #### [facility] [address] [place] [address] 08571Uxoonjibzuc distribution width (RBC) [Ratio]21.6 %High10.9-14.2 [facility] HospitalComment on above:Performed By: #### [id number] #### [facility] [address] [place] [address] 56637Vteqegaadp (Bld) [Volume fraction]24.8 %Low37.7-49.0[facility] HospitalComment on above:Performed By: #### [id number] #### [facility] [address] [place] [address] 04801Snsqxbgtku (Bld) [Mass/Vol]8.5 g/dLLow13.5-17.5FAvita Health System Bucyrus HospitalComment on above:Performed By: #### [id number] #### [facility] [address] [place] [address] 77412Bynnxaburjd (Bld) [#/Vol]1.6 E9/LNormal1.0-4.0[facility] HospitalComment on above:Performed By: #### [id number] #### [facility] [address], [place] [address]Tbzgdmscsoz/100 WBC (Bld)15.2 %Nfimhw44.0-50.0[facility] HospitalComment on above:Performed By: #### [id number] #### [facility] [address] [place] [address] 18484TWW (RBC) [Entitic mass]24.3 pgLow27.0-34.0[facility] HospitalComment on above:Performed By: #### [id number] #### [facility] [address] [place] [address] 30442IDZL (RBC) [Mass/Vol]34.2 g/yFXsozkw88.4-36.0[facility] HospitalComment on above:Performed By: #### [id number] #### [facility] [address] [place] [address] 74940PVZ (RBC) [Entitic vol]70.9 fLLow80.0-100.0[facility] HospitalComment on above:Performed By: #### [id number] #### [facility] [address] [place] [address] 23114Ufzwobhlft Ql (Bld)PRESENTInvalid Interpretation CodeMercy Health Defiance HospitalComment on above:Performed By: #### [id number] #### [facility] [address] [place] [address] 46882Rdaclmxsi (Bld) [#/Vol]1.1 E9/LHigh0.2-1.0[facility] HospitalComment on above:Performed By: #### [id number] #### [facility] [address], [place] [address]Zshfpqhfket (Bld) [#/Vol]7.1 E9/LNormal2.0-7.5FAvita Health System Bucyrus HospitalComment on above:Performed By: #### [id number] #### [facility] [address], [place] [address]Ifvoxqgbyxw/100 WBC (Bld)68.3 %Kqsodd35.0-75.0[facility] HospitalComment on above:Performed By: #### [id number] #### [facility] [address], [place] [address]Mmamsytd685.0 E9/ZFhtqss996.0-500.0[facility] Comment on above:Performed By: #### [id number] #### [facility] [address] [place] [address] 69235Npftspcl mean volume (Bld) [Entitic vol]8.2 fLNormal6.4-10.8 [facility] HospitalComment on above:Performed By: #### [id number] #### [facility] [address] [place] [address] 24299EIH (Bld) [#/Vol]3.5 E12/LLow4.3-5.9[facility] Comment on above:Performed By: #### [id number] #### [facility] [address] [place] [address] 59646ATU size Nom (Bld)SEE MORPHOLOGYInvalid Interpretation Code [facility] HospitalComment on above:Performed By: #### [id number] #### [facility] [address] [place] [address] 90441DGG corrected for nucl RBC Auto (Bld) [#/Vol]10.4 E9/LNormal 4.0-11.0[facility] HospitalComment on above:Performed By: #### [id number] #### [facility] [address] [place] [address] 72166Vxbahaycz Glucose POCon 35-58-1700Tfbqwsb [Mass/Vol]366 mg/dL Inus83-13MhmrvpMercy Health Defiance HospitalComment on above:Result Comment: Notified RN/MDPerformed By: #### [id number] #### [facility] [address], [place] [address]Gafzhao [Mass/Vol]314 mg/tXIkxz46-99OutkuvMercy Health Defiance Hospital Comment on above:Result Comment: Notified RN/MDPerformed By: #### [id number] #### [facility] [address], [place] [address]Adgydup [Mass/Vol]389 mg/sXFgxi94-76KqdflaMercy Health Defiance Hospital Comment on above:Result Comment: Notified RN/MDPerformed By: #### [id number] #### [facility] [address], [place] [address]Eoezcje [Mass/Vol]298 mg/wACuif74-27LbhivaMercy Health Defiance Hospital Comment on above:Result Comment: Notified RN/MDPerformed By: #### [id number] #### [facility] [address], [place] [address]AQMGZCCSYCKlwfxme By: SYSTEM SYSTEM on 43-31-2359Jsirglincx Ql (Bld)PRESENT *NA* (02/17/24 10:59 AM)Invalid Interpretation CodeRemisol HemeeGFRon 55-70-8159aZTZ44 mL/min/1.73 m2Low>=59[facility] HospitalComment on above:Order Comment: Order added by Discern Expert.Performed By: #### [id number] #### [facility] [address], [place] [address]PZWao 59-87-3439Qxcmx gap [Moles/Vol]12 mmol/LNormal6-16[facility] HospitalComment on above:Performed By: #### [id number] #### [facility] [address], [place] [address]Vetwigv [Mass/Vol]8.5 mg/dLLow8.9-11.1FAvita Health System Bucyrus HospitalComment on above:Performed By: #### [id number] #### [facility] [address], [place] [address]Iqjwulct [Moles/Vol]100 mmol/ZZox212-085NfktcrMercy Health Defiance HospitalComment on above:Performed By: #### [id number] #### [facility] [address], [place] [address]EA0 [Moles/Vol]27 mmol/XXowvnv02-13HibsvjMercy Health Defiance Hospital Comment on above:Performed By: #### [id number] #### [facility] [address], [place] [address]Jiryhgskak [Mass/Vol]1.8 mg/dLHigh0.5-1.3FAvita Health System Bucyrus HospitalComment on above:Performed By: #### [id number] #### [facility] [address], [place] [address]Iysreww [Mass/Vol]242 mg/yAKvaf49-778MwunkkMercy Health Defiance HospitalComment on above:Performed By: #### [id number] #### [facility] [address], [place] [address]Gexdlzoul [Moles/Vol]3.8 mmol/LNormal3.5-5.3FAvita Health System Bucy[facility] HospitalComment on above:Performed By: #### [id number] #### [facility] [address], [place] [address]Ripbtc [Moles/Vol]135 mmol/ZDmcmzw055-917YjtvimMercy Health Defiance HospitalComment on above:Performed By: #### [id number] #### [facility] [address], [place] [address]Nlte nitrogen [Mass/Vol]25 mg/dLHigh5-21[facility] HospitalComment on above:Performed By: #### [id number] #### [facility] [address], [place] [address]Pgal nitrogen/Creatinine [Mass ratio]14 No QctfvJgfsbs25-50 [facility] HospitalComment on above:Performed By: #### [id number] #### [facility] [address], [place] [address]YQO w/ Auto Diffon 19-51-9502Fyutnkstb/100 WBC (Bld)0.7 %Normal 0.0-2.0[facility] HospitalComment on above:Performed By: #### [id number] #### [facility] [address], [place] [address]Copelwsws/Leukocytes Auto (Bld) [Pure # fraction]0.1 E9/LNormal 0.0-0.2FAvita Health System Bucyrus HospitalComment on above:Performed By: #### [id number] #### [facility] [address] [place] [address] 81778Oqxczgqcgjx (Bld) [#/Vol]0.5 E9/LNormal0.0-0.5FAvita Health System Bucy[facility] HospitalComment on above:Performed By: #### [id number] #### [facility] [address] [place] [address] 92062Czpoebtanzu/100 WBC (Bld)4.2 %Normal0.0-8.0[facility] HospitalComment on above:Performed By: #### [id number] #### [facility] [address] [place] [address] 06[address]Ozttuekaycd distribution width (RBC) [Ratio]21.5 %High10.9-14.2 [facility] HospitalComment on above:Performed By: #### [id number] #### [facility] [address] [place] [address] 46968Iablcdjyhj (Bld) [Volume fraction]22.9 %Low37.7-49.0[facility] HospitalComment on above:Performed By: #### [id number] #### [facility] [address] [place] [address] 70809Yjlzmktavw (Bld) [Mass/Vol]7.6 g/dLLow13.5-17.5FAvita Health System Bucyrus HospitalComment on above:Performed By: #### [id number] #### [facility] [address] [place] [address] 74[address]Gxwpwvuejqi Auto Ql (Bld)PRESENTInvalid Interpretation Code [facility] HospitalComment on above:Performed By: #### [id number] #### [facility] [address] [place] [address] 26003Mthnkbijvyr (Bld) [#/Vol]1.4 E9/LNormal1.0-4.0[facility] HospitalComment on above:Performed By: #### [id number] #### [facility] [address], [place] [address]Siyqkdwmlvg/100 WBC (Bld)12.7 %Low14.0-50.0[facility] HospitalComment on above:Performed By: #### [id number] #### [facility] [address] [place] [address] 11098GLW (RBC) [Entitic mass]23.4 pgLow27.0-34.0[facility] HospitalComment on above:Performed By: #### [id number] #### [facility] [address] [place] [address] 89713WANX (RBC) [Mass/Vol]33.0 g/eZOvovgw24.4-36.0[facility] HospitalComment on above:Performed By: #### [id number] #### [facility] [address] [place] [address] 81331SGL (RBC) [Entitic vol]70.9 fLLow80.0-100.0[facility] HospitalComment on above:Performed By: #### [id number] #### [facility] [address] [place] [address] 433[address]Cwcnymaenj Ql (Bld)PRESENTInvalid Interpretation CodeMercy Health Defiance HospitalComment on above:Performed By: #### [id number] #### [facility] [address] [place] [address] 31481Kkwwbajnx (Bld) [#/Vol]1.3 E9/LHigh0.2-1.0[facility] HospitalComment on above:Performed By: #### [id number] #### [facility] [address] [place] [address] 58913Upxgohineut (Bld) [#/Vol]7.7 E9/LHigh2.0-7.5FAvita Health System Bucyrus HospitalComment on above:Performed By: #### [id number] #### [facility] [address] [place] [address] 512[address]Ylcdzfbrqsu/100 WBC (Bld)70.1 %Ypgika94.0-75.0[facility] HospitalComment on above:Performed By: #### [id number] #### [facility] [address], [place] [address]Zdzwskrz100.0 E9/GZxxygs331.0-500.0[facility] Comment on above:Performed By: #### [id number] #### [facility] [address], [place] [address]Qijdcaqh mean volume (Bld) [Entitic vol]8.4 fLNormal6.4-10.8 [facility] HospitalComment on above:Performed By: #### [id number] #### [facility] [address] [place] [address] 94058UUO (Bld) [#/Vol]3.2 E12/LLow4.3-5.9[facility] Comment on above:Performed By: #### [id number] #### [facility] [address] [place] [address] 62055POT size Nom (Bld)SEE MORPHOLOGYInvalid Interpretation Code [facility] HospitalComment on above:Performed By: #### [id number] #### [facility] [address] [place] [address] 88210DHA corrected for nucl RBC Auto (Bld) [#/Vol]11.0 E9/LNormal 4.0-11.0[facility] HospitalComment on above:Performed By: #### [id number] #### [facility] [address] [place] [address] 67208Swpyjaqay Glucose POCon 57-84-9587Pcppphp [Mass/Vol]266 mg/dL [address]Comment on above:Result Comment: Notified RN/MDPerformed By: #### [id number] #### [facility] [address] [place] [address] 15150Rxgelzz [Mass/Vol]319 mg/zAKpjk54-37Plzgaf[address] Comment on above:Result Comment: Notified RN/MDPerformed By: #### [id number] #### [facility] [address] [place], [place] [address]Nqmkopu [Mass/Vol]403 mg/aGEggd09-90Oyxivl[address] Comment on above:Result Comment: Notified RN/MDPerformed By: #### [id number] #### [facility] [address] [place], [place] [address]Lrosszq [Mass/Vol]319 mg/rXKboc69-30Drzdup[address] Comment on above:Result Comment: Notified RN/MDPerformed By: #### [id number] #### [facility] [address] [place], [place] [address]Peurnjz [Mass/Vol]253 mg/rRVgjy17-34Nfpoxs[address] Comment on above:Result Comment: Notified RN/MDPerformed By: #### [id number] #### [facility] [address] [place], [place] [address]Guapix Queryon 27-14-9838Rpuogt QueryCoding Query From: Eliz Diaz RN To: [...] Caller Number: H Dx: acute blood loss anemiaNormalMercy Health Defiance HospitalInpatient Clinical Summaryon 37-67-5648Lvcpciqbd Clinical SummaryInpatient Clinical Summary [place] [address] Clinical Summary Person Information: Name: MYRA PICKARD SR Age: 58 Years : 1965 Sex: Male PCP: TERESA LYNCH DO Marital Status: Race: White Ethnicity: Non- or Language: Cymro Visit Id: Visit Reason: I70.261 Speciality: Acuity: Enc Type: Inpatient Med Service: Medical Arrival: 02/12/2024 11:13:26 Discharge: Dispo Type: Address: [address] [place] [address] [id number] Provider Notes: Diagnosis: 1:Hx of right BKA; [...] Mike Montes MD Follow up: Patient Education Information:[facility] HospitalInpatient Patient Summaryon 66-77-1316Jsearckro Patient SummaryInpatient Patient Summary [place] [id number] Patient Discharge Instructions PERSON INFORMATION Name: MYRA [...] every day. Last Dose: (more content not included)...[facility] HospitalInsurance Correspondence Officeon [phone] Correspondence OfficeInsurance Correspondence Office OPERATIVE NOTE Operative [...] correct. Mike Montes M.D. noe Dictated: 02/12/2024 [id number] Transcribed: 02/13/2024[facility] HospitalInterdisciplinary Note - Case Manageron 45-69-9440Fodakmjnspurszpkx Note - Case ManagerInterdisciplinary Note - Java Enterprise Architect This SW received notification from [facility] that patient's had called and wanted to cancel the Acute Rehab and proceed with [facility]. TC from Acute Rehab was received asking [...] SW also explained that if going to [facility], precert would have to be obtained. SW spent a lengthy amount of time going over the differences between the 2 faciliites with patient. He informed SW that his choice was to go to [facility], not Acute Rehab. SW notified Acute Rehab [...] are 3 steps to enter their home.NormalFisher [facility] Comment on above:Result Comment: Electronically Signed By: Evens SÁNCHEZ, Fely Vazquez\Date and Time Signed: 02/16/24 12:45 EDTeGFRon 77-60-1595uJLH78 mL/min/1.73 m2Low>=59[facility]iance HospitalComment on above:Order Comment: Order added by Discern Expert.Performed By: #### [id number] #### [facility] [address], [place] [address]MOMxh 59-71-9359Erxpt gap [Moles/Vol]9 mmol/LNormal6-16[facility] HospitalComment on above:Performed By: #### [id number] #### [facility] [address], [place] [address]Hxqmrhb [Mass/Vol]8.3 mg/dLLow8.9-11.1FAvita Health System Bucyrus HospitalComment on above:Performed By: #### [id number] #### [facility] [address], [place] [address]Yvylcjaz [Moles/Vol]98 mmol/SDtr140-150NbnpfvMercy Health Defiance HospitalComment on above:Performed By: #### [id number] #### [facility] [address], [place] [address]HS0 [Moles/Vol]30 mmol/NNtfclr11-96CkdhfxMercy Health Defiance Hospital Comment on above:Performed By: #### [id number] #### [facility] [address], [place] [address]Ixfrwrsewu [Mass/Vol]1.9 mg/dLHigh0.5-1.3FAvita Health System Bucyrus HospitalComment on above:Performed By: #### [id number] #### [facility] [address], [place] [address]Aofwqnl [Mass/Vol]319 mg/iFDjxl85-152QtwateMercy Health Defiance HospitalComment on above:Performed By: #### [id number] #### [facility] [address], [place] [address]Ahvoiktcs [Moles/Vol]3.9 mmol/LNormal3.5-5.3FAvita Health System Bucyrus HospitalComment on above:Performed By: #### [id number] #### [facility] [address], [place] [address]Jkuqix [Moles/Vol]133 mmol/YSzt512-432TighhsMercy Health Defiance HospitalComment on above:Performed By: #### [id number] #### [facility] [address], [place] [address]Bego nitrogen [Mass/Vol]25 mg/dLHigh5-21[facility] HospitalComment on above:Performed By: #### [id number] #### [facility] [address], [place] [address]Bbrv nitrogen/Creatinine [Mass ratio]13 No TtwxvTitiqi69-31 [facility] HospitalComment on above:Performed By: #### [id number] #### [facility] [address], [place] [address]KXL w/Indiceson 86-08-0711Zodeupddqme distribution width (RBC) [Ratio]20.9 %High10.9-14.2FAvita Health System Bucyrus HospitalComment on above:Performed By: #### [id number] #### [facility] [address], [place] [address]Kmtncebzxi (Bld) [Volume fraction]22.2 %Low37.7-49.0[facility] HospitalComment on above:Performed By: #### [id number] #### [facility] [address], [place] [address]Ehjguhbzda (Bld) [Mass/Vol]7.7 g/dLLow13.5-17.5FAvita Health System Bucyrus HospitalComment on above:Performed By: #### [id number] #### [facility] [address], [place] [address]QXM (RBC) [Entitic mass]24.3 pgLow27.0-34.0[facility] HospitalComment on above:Performed By: #### [id number] #### [facility] [address], [place] [address]SUWR (RBC) [Mass/Vol]34.6 g/rNQtifkh29.4-36.0[facility] HospitalComment on above:Performed By: #### [id number] #### [facility] [address] [place] [address]LRZ (RBC) [Entitic vol]70.2 fLLow80.0-100.0[facility] HospitalComment on above:Performed By: #### [id number] #### [facility] [address] [place] [address]Xypoegbu182.0 E9/JZqmltv205.0-500.0[facility] Comment on above:Performed By: #### [id number] #### [facility] [address] [place] [address]Cwyqoosq mean volume (Bld) [Entitic vol]8.2 fLNormal6.4-10.8 [facility] HospitalComment on above:Performed By: #### [id number] #### [facility] [address] [place] [address]PXP (Bld) [#/Vol]3.2 E12/LLow4.3-5.9[facility] Comment on above:Performed By: #### [id number] #### [facility] [address], [place] [address]AEU size Nom (Bld)NORMALInvalid Interpretation CodeMercy Health Defiance HospitalComment on above:Performed By: #### [id number] #### [facility] [address] [place] [address]SWR corrected for nucl RBC Auto (Bld) [#/Vol]9.0 E9/LNormal 4.0-11.0[facility] HospitalComment on above:Performed By: #### [id number] #### [facility] [address] [place] [address]LARVLZLMTOotgftc By: SYSTEM SYSTEM on 86-23-9984Oyplhuvqu [Mass/Vol]1.7 mg/dLNormal1.3 - 2.4 mg/dLRemisol ChemPhosphate [Mass/Vol]3.8 mg/dLNormal1.9 - 4.6 mg/dLRemisol ChemCOAGULATIONOrdered By: Nancy Barrera on 87-27-1154hEGC Coag (PPP) [Time]28.6 vSrleww91.1 - 36.5 second(s)[facility] Auto Coag Comment on above:Interpretive Data: Parameter [...] the same coagulation reagent and instrumentation as [facility]. Currently there are no coagulation studies available worldwide for children to 14 days, andno normal ranges. Heparin therapeutic range (represented by Anti-Factor Xa activity of 0.2 - 0.4 U/mL) corresponds to PTT of 56.6 - 109.0 sec.INR Coag (PPP) [Relative time]1.09 {INR}Invalid Interpretation CodeCLEVELAND [facility] [place] Auto CoagComment on above:Interpretive Data: INR results are specifically intended to assess patients stabilized on long-term Anticoagulation therapy suggested INR s Less Intensive Anticoagulation 2.0 3.0 Conventional Range 3.0 4.5PT Coag (PPP) [Time]12.2 sNormal9.4 - 12.5 second(s) [facility] Auto CoagComment on above:Interpretive Data: 15 days [...] the same coagulation reagent and instrumentation as [facility]. Currently there are no coagulation studies available worldwide for children to 14 days, andno normal ranges.Capillary Glucose POCon 64-78-7004Skklglo [Mass/Vol]398 mg/dLHigh 55-99Mer[facility]iance HospitalComment on above:Result Comment: Notified RN/MD Performed By: #### [id number] #### [facility] [address], [place] [address]Hdqdpex [Mass/Vol]337 mg/uNUfus61-19Tygtjd[address] Comment on above:Result Comment: Notified RN/MDPerformed By: #### [id number] #### [facility] [address], [place] [address]Dnfmtew [Mass/Vol]228 mg/bPWhsc95-59Lzdvec[address] Comment on above:Result Comment: Notified RN/MDPerformed By: #### [id number] #### [facility] [address], [place] [address]Pogqtsp [Mass/Vol]309 mg/bKUgsh34-54Wvjoxm[address] Comment on above:Result Comment: Notified RN/MDPerformed By: #### [id number] #### [facility] [address], [place] [address]Fwgwnczyltlxpcmua Note - Case Manageron 02-15-2024 Interdisciplinary Note - Case ManagerInterdisciplinary Note - Java Enterprise Architect CRM to room 309 Patient is awake, alert and oriented. Patient is from home with his spouse. Patient verified PCP, DME and insurance. Patient is here as inpatient. Patient had Right BKA. Patient is assigned to Dr Antonio. Vascular Dr Montes did surgery. Patient is getting transfusion PRBC. Patient will need PT/OT added when appropriate. Patient would like rehab stay. Choices were [facility], [facility] and [facility]. [facility] can accept. Patient was provided CRM contact, white board updated. CRM following DC date when [facility] can take per Dr Antonio patient is not ready for DC now drop in HGB, bleeding at stump and still on IV pain meds Rehab needs him on an oral regimenNormalMercy Health Defiance HospitalComment on above:Result Comment: Electronically Signed By: Raina Aguilar\.nile\Date and Time Signed: 02/15/24 14:08 EDTMagnesiumon 23-73-2182Mwexexnkl [Mass/Vol]1.7 mg/dLNormal1.3-2.4FAvita Health System Bucyrus HospitalComment on above:Performed By: #### [id number] #### [facility] [address], [place] [address]QP & PTTon 07-94-3980tSUB Coag (PPP) [Time]28.6 second(s)Normal 25.1-36.5FAvita Health System Bucyrus HospitalComment on above:Result Comment: Parameter 15 days - [...] the same coagulation reagent and instrumentation as [facility]. Currently there are no coagulation studies available worldwide for children to 14 days, andno normal ranges. Heparin therapeutic range (represented by Anti-Factor Xa activity of 0.2 - 0.4 U/mL) corresponds to PTT of 56.6 - 109.0 sec.Performed By: #### [id number] #### [facility] [address], [place] [address]BAT Coag (PPP) [Relative time]1.09 {INR}Invalid Interpretation [facility] HospitalComment on above:Result Comment: INR results are specifically intended to assess patients stabilized on long-term Anticoagulation therapy suggested INR?s ?Less Intensive Anticoagulation? 2.0 ? 3.0 Conventional Range 3.0 ? 4.5Performed By: #### [id number] #### [facility] [address] [facility] [place], [place] [address]NP Coag (PPP) [Time]12.2 second(s)Normal9.4-12.5FAvita Health System Bucyrus HospitalComment on above:Result Comment: 15 days - 4 [...] the same coagulation reagent and instrumentation as [facility]. Currently there are no coagulation studies available worldwide for children to 14 days, andno normal ranges.Performed By: #### [id number] #### [facility] [address], [place] [address]Wntfbrxtxvni 96-76-1083Gvyrxemrf [Mass/Vol]3.8 mg/dLNormal 1.9-4.6[facility] Medical CenterComment on above:Performed By: #### [id number] #### [facility] [address], [place] [address]vECKws 59-63-0953zFGS09 mL/min/1.73 m2Low>=59[facility] HospitalComment on above:Order Comment: Order added by Discern Expert. Performed By: #### [id number] #### [facility] [address], [place] [address]TJCrb 36-81-3818Ktihd gap [Moles/Vol]12 mmol/LNormal6-16[facility] HospitalComment on above:Performed By: #### [id number] #### [facility] [address], [place] [address]Qkzkeof [Mass/Vol]8.3 mg/dLLow8.9-11.1FAvita Health System Bucyrus HospitalComment on above:Performed By: #### [id number] #### [facility] [facility] [address], [place] [address]Vohyegxn [Moles/Vol]96 mmol/STyu137-012EwocvoMercy Health Defiance HospitalComment on above:Performed By: #### [id number] #### [facility] [address], [place] [address]VJ0 [Moles/Vol]28 mmol/CNgqexz42-56KrzfduMercy Health Defiance Hospital Comment on above:Performed By: #### [id number] #### [facility] [address], [place] [address]Nhxfvjheiy [Mass/Vol]1.8 mg/dLHigh0.5-1.3FAvita Health System Bucyrus HospitalComment on above:Performed By: #### [id number] #### [facility] [address], [place] [address]Jllnidu [Mass/Vol]298 mg/iZNpig36-981AjwbsdMercy Health Defiance HospitalComment on above:Performed By: #### [id number] #### [facility] [address], [place] [address]Azflcfmcs [Moles/Vol]3.7 mmol/LNormal3.5-5.3FAvita Health System Bucyrus HospitalComment on above:Performed By: #### [id number] #### [facility] [address], [place] [address]Zmqhpv [Moles/Vol]132 mmol/ZTpu551-735HqzexiMercy Health Defiance HospitalComment on above:Performed By: #### [id number] #### [facility] [address], [place] [address]Ewxa nitrogen [Mass/Vol]21 mg/dLNormal5-21[facility] HospitalComment on above:Performed By: #### [id number] #### [facility] [address] [place] [address]Uzbn nitrogen/Creatinine [Mass ratio]12 No UizjnSsqidv29-72 [facility] HospitalComment on above:Performed By: #### [id number] #### [facility] [address] [place] [address]FZC w/ Auto Diffon 47-72-6970Pjnaokxna/100 WBC (Bld)1.9 %Normal 0.0-2.0[facility] HospitalComment on above:Performed By: #### [id number] #### [facility] [address] [place] [address]Blexggdwd/Leukocytes Auto (Bld) [Pure # fraction]0.2 E9/LNormal 0.0-0.2FAvita Health System Bucyrus HospitalComment on above:Performed By: #### [id number] #### [facility] [address] [place] [address]Sihfjmakfvp (Bld) [#/Vol]0.3 E9/LNormal0.0-0.5FAvita Health System Bucyrus HospitalComment on above:Performed By: #### [id number] #### [facility] [address] [place] [address]Jefallpggjq/100 WBC (Bld)3.1 %Normal0.0-8.0[facility] HospitalComment on above:Performed By: #### [id number] #### [facility] [address] [place] [address]Esrgkemydks distribution width (RBC) [Ratio]21.1 %High10.9-14.2 [facility] HospitalComment on above:Performed By: #### [id number] #### [facility] [address] [place] [address]Nxeutymnzk (Bld) [Volume fraction]26.4 %Low37.7-49.0[facility] HospitalComment on above:Performed By: #### [id number] #### [facility] [address], [place] [address]Yqyyjosexd (Bld) [Mass/Vol]8.5 g/dLLow13.5-17.5FAvita Health System Bucyrus HospitalComment on above:Performed By: #### [id number] #### [facility] [address], [place] [address]Cocfxxauwwf Auto Ql (Bld)PRESENTInvalid Interpretation Code [facility] HospitalComment on above:Performed By: #### [id number] #### [facility] [address], [place] [address]Bpyxdfjuesj (Bld) [#/Vol]1.1 E9/LNormal1.0-4.0[facility] HospitalComment on above:Performed By: #### [id number] #### [facility] [address] [place] [address]Bdlxqezvgbs/100 WBC (Bld)11.3 %Low14.0-50.0[facility] HospitalComment on above:Performed By: #### [id number] #### [facility] [address] [place] [address]PWB (RBC) [Entitic mass]23.3 pgLow27.0-34.0[facility] HospitalComment on above:Performed By: #### [id number] #### [facility] [address], [place] [address]HIPN (RBC) [Mass/Vol]32.4 g/oYYmcudl52.4-36.0[facility] HospitalComment on above:Performed By: #### [id number] #### [facility] [address], [place] [address]ZHY (RBC) [Entitic vol]71.8 fLLow80.0-100.0[facility] HospitalComment on above:Performed By: #### [id number] #### [facility] [address], [place] [address]Hpkhybjcaa Ql (Bld)PRESENTInvalid Interpretation CodeMercy Health Defiance HospitalComment on above:Performed By: #### [id number] #### [facility] [address] [place] [address]Vodbmpucl (Bld) [#/Vol]1.0 E9/LNormal0.2-1.0[facility] HospitalComment on above:Performed By: #### [id number] #### [facility] [address] [place] [address]Xmafgxjexkc (Bld) [#/Vol]7.5 E9/LNormal2.0-7.5FAvita Health System Bucyrus HospitalComment on above:Performed By: #### [id number] #### [facility] [address] [place] [address]Gcxijfqoqha/100 WBC (Bld)74.1 %Htqgav21.0-75.0[facility] HospitalComment on above:Performed By: #### [id number] #### [facility] [address] [place] [address]Lbrbjmer mean volume (Bld) [Entitic vol]8.3 fLNormal6.4-10.8 [facility] HospitalComment on above:Performed By: #### [id number] #### [facility] [address] [place] [address]Oawhbxdhs (Bld) [#/Vol]244.0 E9/DKbuzyl490.0-500.0[facility] HospitalComment on above:Performed By: #### [id number] #### [facility] [address] [place] [address]18[address]TCI (Bld) [#/Vol]3.7 E12/LLow4.3-5.9[facility] Comment on above:Performed By: #### [id number] #### [facility] [address] [place] [address]MIA size Nom (Bld)SEE MORPHOLOGYInvalid Interpretation Code [facility] HospitalComment on above:Performed By: #### [id number] #### [facility] [address], [place] [address]IJR corrected for nucl RBC Auto (Bld) [#/Vol]10.2 E9/LNormal 4.0-11.0[facility] HospitalComment on above:Performed By: #### [id number] #### [facility] [address], [place] [address]NLRILAIDLWbbvhra By: SYSTEM SYSTEM on 31-10-3222Fuithslck [Mass/Vol]1.8 mg/dLNormal1.3 - 2.4 mg/dLRemisol ChemPhosphate [Mass/Vol]3.8 mg/dLNormal1.9 - 4.6 mg/dLRemisol ChemCOAGULATIONOrdered By: Marybel Parks on 03-36-0729gUAV Coag (PPP) [Time]28.8 mCisyyg41.1 - 36.5 second(s)[facility] Auto Coag Comment on above:Interpretive Data: Parameter [...] the same coagulation reagent and instrumentation as [facility]. Currently there are no coagulation studies available worldwide for children to 14 days, andno normal ranges. Heparin therapeutic range (represented by Anti-Factor Xa activity of 0.2 - 0.4 U/mL) corresponds to PTT of 56.6 - 109.0 sec.INR Coag (PPP) [Relative time]1.04 {INR}Invalid Interpretation CodeCLEVELAND [facility] Auto CoagComment on above:Interpretive Data: INR results are specifically intended to assess patients stabilized on long-term Anticoagulation therapy suggested INR s Less Intensive Anticoagulation 2.0 3.0 Conventional Range 3.0 4.5PT Coag (PPP) [Time]11.7 sNormal9.4 - 12.5 second(s) [facility] Auto CoagComment on above:Interpretive Data: 15 days [...] the same coagulation reagent and instrumentation as [facility]. Currently there are no coagulation studies available worldwide for children to 14 days, andno normal ranges.Capillary Glucose POCon 72-45-4998Pxrknlb [Mass/Vol]269 mg/dLHigh 55-99[facility] HospitalComment on above:Result Comment: Notified RN/ Performed By: #### [id number] #### [facility] [address], [place] [address]Oznamvq [Mass/Vol]279 mg/mZUsxz00-97Hijgal[address] Comment on above:Result Comment: Notified RN/MDPerformed By: #### [id number] #### [facility] [address], [place] [address]Gqtfdur [Mass/Vol]285 mg/pIOnrc69-53Cxeskk[address] Comment on above:Result Comment: Repeat TestPerformed By: #### [id number] #### [facility] [address], [place] [address]Zswyzgh [Mass/Vol]242 mg/zBBujg66-95Fcrcak[address] Comment on above:Result Comment: Repeat TestPerformed By: #### [id number] #### [facility] [address], [place] [address]Uzxddulwdzovobatp Note - Case Manageron 02-14-2024 Interdisciplinary Note - Case ManagerInterdisciplinary Note - Java Enterprise Architect This SW rounded with patient in room 309 this morning. Patient is alert, oriented, and involved in his plan of care. He remains agreeable to going to 1) [facility] Acute [facility]hab - referral pending, 2) [facility] - they have accepted, or 3) [facility] - they have accepted. Acute Rehab is awaiting therapy notes to make their final determination. SW will update patient once determination isreceived. Patient did request that SW contact his , Yamileth, with an update this afternoon. TC made to Yamileth and she was updated on the above. She voiced that patient has been refusing her recommendation for [facility], however SW let her know that he was agreeable this morning. This SW had discussed the differences between Acute Rehab and SNF to patient.[facility] HospitalComment on above:Result Comment: Electronically Signed By: Fely Narvaez.br\Date and Time Signed: 02/14/24 12:15 EDTInterdisciplinary Note - Case ManagerInterdisciplinary Note - Java Enterprise Architect This SW rounded with patient in room 309 this morning. Patient is alert, oriented, and involved in his plan of care. He remains agreeable to going to 1) [facility] Acute [facility]hab - referral pending, 2) [facility] - they have accepted, or 3) [facility] - they have accepted. Acute Rehab is awaiting therapy notes to make their final determination. SW will update patient once determination isreceived. Patient did request that SW contact his , Yamileth, with an update this afternoon.[facility] Comment on above:Result Comment: Electronically Signed By: Fely Narvaez.br\Date and Time Signed: 02/14/24 09:38 EDTInterdisciplinary Note - OTon 27-32-8297Lmyuqozarfexozmtz Note - OTInterdisciplinary Note - OT OT [...] OT to follow daily progressing as pt tolerates.NormalMercy Health Defiance HospitalMagnesiumon 45-31-1650Ronmnopeu [Mass/Vol]1.8 mg/dLNormal1.3-2.4 [place] [facility] CenterComment on above:Performed By: #### [id number] #### [facility] [address], [place] [address]ZV & PTTon 87-69-7252jUBL Coag (PPP) [Time]28.8 second(s)Normal 25.1-36.5FAvita Health System Bucyrus HospitalComment on above:Result Comment: Parameter 15 days - [...] the same coagulation reagent and instrumentation as [facility]. Currently there are no coagulation studies available worldwide for children to 14 days, andno normal ranges. Heparin therapeutic range (represented by Anti-Factor Xa activity of 0.2 - 0.4 U/mL) corresponds to PTT of 56.6 - 109.0 sec.Performed By: #### [id number] #### [facility] [address], [place] [address]NYM Coag (PPP) [Relative time]1.04 {INR}Invalid Interpretation CodeMercy Health Defiance HospitalComment on above:Result Comment: INR results are specifically intended to assess patients stabilized on long-term Anticoagulation therapy suggested INR?s ?Less Intensive Anticoagulation? 2.0 ? 3.0 Conventional Range 3.0 ? 4.5Performed By: #### [id number] #### [facility] [address], [place] [address]AR Coag (PPP) [Time]11.7 second(s)Normal9.4-12.5FAvita Health System Bucyrus HospitalComment on above:Result Comment: 15 days - 4 [...] the same coagulation reagent and instrumentation as [facility]. Currently there are no coagulation studies available worldwide for children to 14 days, andno normal ranges.Performed By: #### [id number] #### [facility] [address], [place] [address]Ssansymdnirg 69-94-2573Igthtfaqh [Mass/Vol]3.8 mg/dLNormal 1.9-4.6FAvita Health System Bucyrus HospitalComment on above:Performed By: #### [id number] #### [facility] [address], [place] [address]eNLXhd 61-82-5768jHYR01 mL/min/1.73 m2Low>=59[facility]iance HospitalComment on above:Order Comment: Order added by Discern Expert. Performed By: #### [id number] #### [facility] [address], [place] [address]NUXvl 91-76-1388Oxozw gap [Moles/Vol]11 mmol/LNormal6-16[facility] HospitalComment on above:Performed By: #### [id number] #### [facility] [address], [place] [address]Ldlwuol [Mass/Vol]8.0 mg/dLLow8.9-11.1FAvita Health System Bucyrus HospitalComment on above:Performed By: #### [id number] #### [facility] [address], [place] [address]Uxadpllg [Moles/Vol]99 mmol/BApd403-154LpscohMercy Health Defiance HospitalComment on above:Performed By: #### [id number] #### [facility] [address], [place] [address]ML7 [Moles/Vol]26 mmol/YEfpzfa18-87QgtfhdMercy Health Defiance Hospital Comment on above:Performed By: #### [id number] #### [facility] [address], [place] [address]Hxsjnkcghz [Mass/Vol]1.6 mg/dLHigh0.5-1.3FAvita Health System Bucyrus HospitalComment on above:Performed By: #### [id number] #### [facility] [address], [place] [address]Gcqftzp [Mass/Vol]234 mg/pMAmfp85-040IxozvwMercy Health Defiance HospitalComment on above:Performed By: #### [id number] #### [facility] [address], [place] [address]Igqbtasox [Moles/Vol]4.0 mmol/LNormal3.5-5.3FAvita Health System Bucyrus HospitalComment on above:Performed By: #### [id number] #### [facility] [address], [place] [address]Zojevc [Moles/Vol]132 mmol/CZmw066-060BdxmlvMercy Health Defiance HospitalComment on above:Performed By: #### [id number] #### [facility] [address], [place] [address]Quty nitrogen [Mass/Vol]19 mg/dLNormal5-21[facility] HospitalComment on above:Performed By: #### [id number] #### [facility] [address], [place] [address]Ntbl nitrogen/Creatinine [Mass ratio]12 No AvrrlTrvdbz56-19 [facility] HospitalComment on above:Performed By: #### [id number] #### [facility] [address], [place] [address]VKZ w/Indiceson 91-40-7943Zebqopsawzl distribution width (RBC) [Ratio]18.8 %High10.9-14.2FAvita Health System Bucyrus HospitalComment on above:Performed By: #### [id number] #### [facility] [address] [place] [address]Kmxmtpltkl (Bld) [Volume fraction]19.5 %Low37.7-49.0[facility] HospitalComment on above:Performed By: #### [id number] #### [facility] [address] [place] [address]Hafkbrqrti (Bld) [Mass/Vol]6.3 g/iWRpjzliqm81.5-17.5FAvita Health System Bucyrus HospitalComment on above:Result Comment: Critical Result Verified by Repeat Analysis Results called to DAVID WELSH by [facility] and read back on 02/13/2024 05:48:17. Performed By: #### [id number] #### [facility] [address] [place] [address]Lxwinedqkin Auto Ql (Bld)PRESENTInvalid Interpretation Code [facility] HospitalComment on above:Performed By: #### [id number] #### [facility] [address] [place] [address]VSE (RBC) [Entitic mass]21.6 pgLow27.0-34.0[facility] HospitalComment on above:Performed By: #### [id number] #### [facility] [address], [place] [address]KGAM (RBC) [Mass/Vol]32.3 g/fTUssqma29.4-36.0[facility] HospitalComment on above:Performed By: #### [id number] #### [facility] [address] [place] [address]YWN (RBC) [Entitic vol]67.0 fLLow80.0-100.0[facility] HospitalComment on above:Performed By: #### [id number] #### [facility] [address], [place] [address]Xldqpvbcmf Ql (Bld)PRESENTInvalid Interpretation CodeMercy Health Defiance HospitalComment on above:Performed By: #### [id number] #### [facility] [address], [place] [address]Zduwjskp300.0 E9/NNwnjuk855.0-500.0[facility] Comment on above:Performed By: #### [id number] #### [facility] [address], [place] [address]Ewdtkirc mean volume (Bld) [Entitic vol]8.2 fLNormal6.4-10.8 [facility] HospitalComment on above:Performed By: #### [id number] #### [facility] [address] [place] [address]KEO (Bld) [#/Vol]2.9 E12/LLow4.3-5.9[facility] Comment on above:Performed By: #### [id number] #### [facility] [address], [place] [address]JAT size Nom (Bld)SEE MORPHOLOGYInvalid Interpretation Code [facility] HospitalComment on above:Performed By: #### [id number] #### [facility] [address] [place] [address]BBB corrected for nucl RBC Auto (Bld) [#/Vol]12.9 E9/LHigh 4.0-11.0[facility] HospitalComment on above:Performed By: #### [id number] #### [facility] [address] [place] [address]OZMCAWYHDAkqjpvi By: Simon Helm on 79-45-7604LwA4q (Bld) [Mass fraction]10.3 %High<=5.9%[facility] ChemAutoSSCHEMISTRYOrdered By: SYSTEM SYSTEM on 47-97-0137Kltraizzn [Mass/Vol]1.3 mg/dLNormal1.3 - 2.4 mg/dLRemisol Chem Phosphate [Mass/Vol]2.5 mg/dLNormal1.9 - 4.6 mg/dLRemisol ChemCOAGULATIONOrdered By: Pietro Garibay on 99-87-4205pJLS Coag (PPP) [Time]27.5 eKmooha05.1 - 36.5 second(s)[facility] Auto CoagComment on above:Interpretive Data: Parameter 15 [...] the same coagulation reagent and instrumentation as [facility]. Currently there are no coagulation studies available worldwide for children to 14 days, andno normal ranges. Heparin therapeutic range (represented by Anti-Factor Xa activity of 0.2 - 0.4 U/mL) corresponds to PTT of 56.6 - 109.0 sec.INR Coag (PPP) [Relative time]1.11 {INR}Invalid Interpretation CodeCLEVELAND [facility] [place] Auto CoagComment on above:Interpretive Data: INR results are specifically intended to assess patients stabilized on long-term Anticoagulation therapy suggested INR s Less Intensive Anticoagulation 2.0 3.0 Conventional Range 3.0 4.5PT Coag (PPP) [Time]12.5 sNormal9.4 - 12.5 second(s) [facility] Auto CoagComment on above:Interpretive Data: 15 days [...] the same coagulation reagent and instrumentation as [facility]. Currently there are no coagulation studies available worldwide for children to 14 days, andno normal ranges.Capillary Glucose POCon 66-37-4346Bbpmkgo [Mass/Vol]332 mg/dLTeays Valley Cancer Center [address] [place], [place] [address]Comment on above:Result Comment: Notified RN/MD Performed By: #### [id number] #### [facility] [address], [place] [address]Rptbthm [Mass/Vol]194 mg/bAStse13-38Lmdfhq[address] Comment on above:Result Comment: Notified RN/MDPerformed By: #### [id number] #### [facility] [address], [place] [address]Rpysivf [Mass/Vol]195 mg/dSPpip12-43Kilkez[address] Comment on above:Result Comment: Notified RN/MDPerformed By: #### [id number] #### [facility] [address], [place] [address]Drcguvk [Mass/Vol]194 mg/tODbxf31-42Igvwmu[address] Comment on above:Result Comment: Notified RN/MDPerformed By: #### [id number] #### [facility] [address], [place] [address]Bcpwkvj [Mass/Vol]324 mg/zKSjtd33-79Tfqfhb[address] Comment on above:Result Comment: Notified RN/MDPerformed By: #### [id number] #### [facility] [address], [place] [address]Fvjiue Queryon 58-42-4543Uhtqti QueryCoding Query From: Eliz Diaz RN To: [...] answer is desired or expected. Thank you!eliz [id number] Health Defiance HospitalHct & Hgbon 38-87-1879Fqxulpmbvs (Bld) [Volume fraction]24.4 %Low37.7-49.0 [facility] HospitalComment on above:Performed By: #### [id number] #### [facility] [address], [place] [address]Uhszoejtbx (Bld) [Mass/Vol]7.9 g/dLLow13.5-17.5FAvita Health System Bucyrus HospitalComment on above:Performed By: #### [id number] #### [facility] [address], [place] [address]CfbZ9rxs 06-02-2079KeO5v (Bld) [Mass fraction]10.3 %High<=5.9 [facility] HospitalComment on above:Performed By: #### [id number] #### [facility] [address], [place] [address]Arahwcjweahwwxzwe Note - Case Manageron 02-13-2024 Interdisciplinary Note - Case ManagerInterdisciplinary Note - Java Enterprise Architect CRM to room 309 Patient is awake, [...] CRM did try to call Spouse at [phone] and left VM. CRM did leave printed SNF list in room. Patient was provided CRM contact, white board updated. CRM following DC date TBD. CRM will get updates at 10 AM from hospitalist called CRM choices of [facility] [place] and [facility] for rehab [facility] HospitalComment on above:Result Comment: Electronically Signed By: Raina Aguilar\.br\Date and Time Signed: 02/13/24 13:10 EDT Interdisciplinary Note - Case ManagerInterdisciplinary Note - Java Enterprise Architect CRM to room 309 Patient is awake, alert and oriented. Patient is from home with his spouse. Patient verified PCP, DME and insurance. Patient is here as inpatient. Patient had Right BKA. Patient is assigned to Dr Antonio. Vascular Dr Montes did surgery. Patient is getting transfusion PRBC. Patient will need PT/OT added when appropriate. [place] Patient is unsure of choices yet. His spouse wasdoing some research. CRM did try to call Spouse at [phone] and left VM. CRM did leave printed SNF list in room. Patient was provided CRM contact, white board updated. CRM following DC date TBD. CRM will get updates at 10 AM from [facility] centeristWyandot [facility] HospitalComment on above:Result Comment: Electronically Signed By: Raina Aguilar\.br\Date and Time Signed: 02/13/24 09:21 EDTInterdisciplinary Note - OT on 74-31-2115Akhvdqhuaxzuponjl Note - OTInterdisciplinary Note - OT 02/13/24: OT orders received, chart reviewed. Holding OT eval this date as Pt has critically low Hbglevels. Will try again with OT eval when Pt is medically appropriate.[facility] HospitalInterdisciplinary Note - PTon 98-26-3985Xzqdjsthtzpabinya Note - PTInterdisciplinary Note - PT Order received and chart reviewed. Pt with critical Hgb levels at this time. Will hold and attempt tomorrowNUNC [facility] CenterMagnesiumon 20-81-1980Lrgpflubc [Mass/Vol]1.3 mg/dLNormal1.3-2.4[facility] Comment on above:Performed By: #### [id number] #### [place] [facility] [address] [address]Tznz OR Intraoperative Recordon 08-11-4649Urgp OR Intraoperative RecordMain OR Intraoperative Record IntraOp Document Type FT Summary Primary Physician: Mike Montes MD Finalized Date/Time: 02/13/24 13:38:10 Pt. Name: MATTEO CHRISTIAN, MYRA Aceves/Sex: 1965 Male Med Rec #: [id number] Physician: Mike Montes MD Financial #: [id number] Pt. Type: I Room/Bed: [place] [address] Admit/Disch: 02/12/24 11:13:26 - Institution: Case Times [...] RN Role Performed Anesthesiologist Surgeon - Primary Statuary Painter - Primary Destination Specialist Time In 02/12/24 13:26:00 02/12/24 13:45:00 02/12/24 13:26:00 Time Out 02/12/24 14:44:00 02/12/24 14:31:00 02/12/24 14:44:00 Procedure KNEE AMPUTATION KNEE AMPUTATION KNEE AMPUTATION BELOW(Right) BELOW(Right) BELOW(Right) Comments , anesthesia casting and pasting supervisor Last Modified By: Sara STERN, Tyree Ruiz RN, Tyree Ruiz RN, Tyree Simmons 02/12/24 14:44:09 02/12/24 14:44:09 02/12/24 14:44:09 Entry 4 Entry 5 Entry 6 Case Attendee Robinson STERN, Jenise Jaquez CST, Radha Corona Role Performed Statuary Painter - Primary CUTTING INSPECTOR/SA Scrub - Primary Time In 02/12/24 13:26:00 02/12/24 13:26:00 02/12/24 13:26:00 Time Out 02/12/24 14:44:00 02/12/24 14:44:00 02/12/24 14:44:00 Procedure KNEE AMPUTATION KNEE AMPUTATION KNEE AMPUTATION BELOW(Right) BELOW(Right) BELOW(Right) Comments in orientation Last Modified By: Sara STERN, Tyree Ruiz RN, Tyree Ruiz RN, Tyree Simmons 02/12/24 14:44:09 02/12/24 14:44:09 02/12/24 14:44:09 General Comments: Lima Puckett- inside sales executive, observing surgical case. Perioperative Protocols FT Pre-Care [...] I70.261-Atherosclerosis Postop Same As Preop Yes of [facility] arteries of extremities with gangrene, right leg. Postop Diagnosis I70.261-Atherosclerosis Outcomes Met? Yes of [facility] [place] arteries of extremities with gangrene, right leg. [...] and tissue Entry 1 Skin Integrity Intact, [place], Warm, & Skin Abnormality No Dry Outcomes Met? Yes Last Modified By: Tyree Ruiz RN 02/12/24 12:50:23 Post-Care Text: The patient is free from signs an (more content not included)...NormalFisher [facility] Medical CenterPT & PTTon 33-76-9335pZMD Coag (PPP) [Time]27.5 second(s) Qawidy36.1-36.5Fisher [facility] CenterComment on above:Result Comment: Parameter 15 [...] the same coagulation reagent and instrumentation as [facility]. Currently there are no coagulation studies available worldwide for children to 14 days, andno normal ranges. Heparin therapeutic range (represented by Anti-Factor Xa activity of 0.2 - 0.4 U/mL) corresponds to PTT of 56.6 - 109.0 sec.Performed By: #### [id number] #### [place] [facility] [address], [place] [address]WIC Coag (PPP) [Relative time]1.11 {INR}Invalid Interpretation CodeFishKennedy Krieger InstituteComment on above:Result Comment: INR results are specifically intended to assess patients stabilized on long-term Anticoagulation therapy suggested INR?s ?Less Intensive Anticoagulation? 2.0 ? 3.0 Conventional Range 3.0 ? 4.5Performed By: #### [id number] #### [place] [facility] [address], [place] [address]ID Coag (PPP) [Time]12.5 second(s)Normal9.4-12.5Fisher [facility] Medical CenterComment on above:Result Comment: 15 days [...] the same coagulation reagent and instrumentation as [facility]. Currently there are no coagulation studies available worldwide for children to 14 days, andno normal ranges.Performed By: #### [id number] #### [facility] [address], [place] [address]Hiyeqokyqpto 74-44-3864Ualoxfgng [Mass/Vol]2.5 mg/dLNormal 1.9-4.6Fisher [facility] Medical CenterComment on above:Performed By: #### [id number] #### [facility] [address], [place] [address]ILAnb 02-13-2024# of Ofvwe2Eqpcoel Interpretation [facility] HospitalComment on above:Result Comment: 02/13/2024 6:32 [id number] Blood product ready and called to David Hoskins at 02/13/2024 06:32:44 EDT by [id number]. Performed By: #### [id number] #### [facility] [address], [place] [address]Gbkm [id number] Interpretation [facility] HospitalComment on above:Performed By: #### [id number] #### [place] [facility] [address], [place] [address]Odcsz to TransfuseYesNormalMercy Health Defiance HospitalComment on above:Performed By: #### [id number] #### [facility] [address], [place] [address]Afyaggz TypeNone RequiredInvalid Interpretation [facility] HospitalComment on above:Performed By: #### [id number] #### [place] [facility] [address], [place] [address]eEMVhs 84-47-5484wUMA34 mL/min/1.73 m2Low>=59[facility] HospitalComment on above:Order Comment: Order added by Discern Expert. Performed By: #### [id number] #### [facility] [address], [place] [address]IBK/Rhon 65-72-5917MEO/RhPositiveInvalid Interpretation Code [facility] HospitalComment on above:Performed By: #### [id number] #### [facility] [address], [place] [address]HOI/Rh History Checkon 69-64-2900WQR/Rh History CheckType verified by second sNormalMercy Health Defiance HospitalComment on above:Performed By: #### [id number] #### [facility] [address], [place] [address]OGG/Rh Retypeon 28-01-8957CDJ/Rh Retype InterpPositiveInvalid Interpretation CodeMercy Health Defiance HospitalComment on above:Performed By: #### [id number] #### [facility] [address], [place] [address]PKADll 73-30-2285YGQL Gel InterpNegativeNormalMercy Health Defiance HospitalComment on above:Performed By: #### [id number] #### [facility] [address], [place] [address]WQYAA BANKOrdered By: Simon Helm on 20-44-7329EBB/Rh Retype InterpPositiveInvalid Interpretation [facility] BB SubsectionBLOOD BANKOrdered By: Any Gomez on 08-12-6873LAW/Rh InterpPositiveInvalid Interpretation [facility] BB SubsectionABSC Gel InterpNegative (02/12/24 12:00 PM)NormalC[facility] BB SubsectionBMPon 44-92-8712Ymewk gap [Moles/Vol]12 mmol/LNormal6-16[facility] HospitalComment on above:Performed By: #### [id number] #### [facility] [address], [place] [address]Takolwz [Mass/Vol]8.1 mg/dLLow8.9-11.1[facility] CenterComment on above:Performed By: #### [id number] #### [facility] [address], [place] [address]Yinhaoap [Moles/Vol]102 mmol/ULvwodz389-194VkerfrMercy Health Defiance HospitalComment on above:Performed By: #### [id number] #### [facility] [address], [place] [address]BA3 [Moles/Vol]26 mmol/IStseuv95-00NsdjskMercy Health Defiance Hospital Comment on above:Performed By: #### [id number] #### [facility] [address], [place] [address]Eymnmiatdk [Mass/Vol]1.5 mg/dLHigh0.5-1.3FAvita Health System Bucyrus HospitalComment on above:Performed By: #### [id number] #### [facility] [address], [place] [address]Pjcnsjt [Mass/Vol]274 mg/tNEkfk75-119OcxsypMercy Health Defiance HospitalComment on above:Performed By: #### [id number] #### [facility] [address], [place] [address]Tzyubsktd [Moles/Vol]4.5 mmol/LNormal3.5-5.3FAvita Health System Bucyrus HospitalComment on above:Performed By: #### [id number] #### [facility] [address], [place] [address]Dhmgtm [Moles/Vol]135 mmol/DShnstw501-340TbuzgqMercy Health Defiance HospitalComment on above:Performed By: #### [id number] #### [facility] [address], [place] [address]Cvpz nitrogen [Mass/Vol]16 mg/dLNormal5-21[facility] HospitalComment on above:Performed By: #### [id number] #### [facility] [address], [place] [address]Rmsu nitrogen/Creatinine [Mass ratio]11 No TpmcwNmhinq23-50 [facility] HospitalComment on above:Performed By: #### [id number] #### [facility] [address], [place] [address]Tmrzm Bank ID#on [id number]#[id number] Interpretation CodeMercy Health Defiance HospitalComment on above:Performed By: #### [id number] #### [facility] [address], [place] [address]GQN w/Indiceson 33-53-3249Gzbzfaisalk distribution width (RBC) [Ratio]18.5 %High10.9-14.2FAvita Health System Bucyrus HospitalComment on above:Performed By: #### [id number] #### [facility] [address], [place] [address]Suxgxopwqm (Bld) [Volume fraction]23.5 %Low37.7-49.0[facility] HospitalComment on above:Performed By: #### [id number] #### [facility] [address] [place] [address]Kskbnwknoh (Bld) [Mass/Vol]7.2 g/dLLow13.5-17.5FAvita Health System Bucyrus HospitalComment on above:Performed By: #### [id number] #### [facility] [address] [place] [address]Kuienpszibf Auto Ql (Bld)PRESENTInvalid Interpretation Code [facility] HospitalComment on above:Performed By: #### [id number] #### [facility] [address] [place] [address]AYF (RBC) [Entitic mass]21.1 pgLow27.0-34.0[facility] HospitalComment on above:Performed By: #### [id number] #### [facility] [address] [place] [address]RPOM (RBC) [Mass/Vol]30.7 g/dLLow31.4-36.0[facility] HospitalComment on above:Performed By: #### [id number] #### [facility] [address] [place] [address]KAJ (RBC) [Entitic vol]68.8 fLLow80.0-100.0[facility] HospitalComment on above:Performed By: #### [id number] #### [facility] [address] [place] [address]Fosgjwisii Ql (Bld)PRESENTInvalid Interpretation CodeMercy Health Defiance HospitalComment on above:Performed By: #### [id number] #### [facility] [address], [place] [address]Loupnbfa mean volume (Bld) [Entitic vol]8.0 fLNormal6.4-10.8 [facility] HospitalComment on above:Performed By: #### [id number] #### [facility] [address], [place] [address]Muziagpbv (Bld) [#/Vol]244.0 E9/PDmpefi298.0-500.0[facility] HospitalComment on above:Performed By: #### [id number] #### [facility] [address], [place] [address]Jrxrkgasdjxcx LM Ql (Bld)PRESENTInvalid Interpretation Code [facility] HospitalComment on above:Performed By: #### [id number] #### [facility] [address] [place] [address]MXR (Bld) [#/Vol]3.4 E12/LLow4.3-5.9[facility] Comment on above:Performed By: #### [id number] #### [facility] [address] [place] [address]ZWB size Nom (Bld)NORMALInvalid Interpretation CodeMercy Health Defiance HospitalComment on above:Performed By: #### [id number] #### [facility] [address] [place] [address]Ukngwz cells LM Ql (Bld)PRESENTInvalid Interpretation Code [facility] HospitalComment on above:Performed By: #### [id number] #### [facility] [address], [place] [address]AUO corrected for nucl RBC Auto (Bld) [#/Vol]14.7 E9/LHigh 4.0-11.0[facility] HospitalComment on above:Performed By: #### [id number] #### [facility] [address] [place] [address]ZVQLVMNZJFkicmhw By: SYSTEM SYSTEM on 50-65-2615Pemrptu [Mass/Vol]580 mg/dLInvalid Interpretation Code55 - 199 mg/dLRemisol ChemComment on above:Result Comment: Critical Result Verified by Repeat Analysis Critical Result [id number] Called to and read back by: DAVID WELSH at: 02/12/2024 21:01:57 by:BABCapillary Glucose POCon 67-15-6667Jkiznzv [Mass/Vol] 441 mg/ySVdfv48-08OgqzmaMercy Health Defiance HospitalComment on above:Result Comment: Notified RN/MDPerformed By: #### [id number] #### [facility] [address], [place] [address]Jwzbvfs [Mass/Vol]mg/kTHeshrqif38-41BiwfwlMercy Health Defiance Hospital Comment on above:Result Comment: Notified RN/MDPerformed By: #### [id number] #### [facility] [address], [place] [address]Xykpcnm [Mass/Vol]mg/pCBknsjapx21-39QwzhfwMercy Health Defiance Hospital Comment on above:Result Comment: Notified RN/MDPerformed By: #### [id number] #### [facility] [address], [place] [address]Jvmuqjw [Mass/Vol]259 mg/sWAdeq86-03IsybwqMercy Health Defiance Hospital Comment on above:Result Comment: Repeat TestPerformed By: #### [id number] #### [facility] [address], [place] [address]Ytxjzmm [Mass/Vol]205 mg/aMWkut17-67SfsooiMercy Health Defiance Hospital Comment on above:Result Comment: Notified RN/MDPerformed By: #### [id number] #### [facility] [address], [place] [address]Xncoqtfjr 94-66-5115Pplvlgi [Mass/Vol]580 mg/nHTzjgmpyy04-613 [facility] HospitalComment on above:Result Comment: Critical Result Verified by Repeat Analysis Critical Result [id number] Called to and read back by: DAVID WELSH at: 02/12/2024 21:01:57 by:BABPerformed By: #### [id number] #### [place] [facility] [address] [place] [address]MSVPTOVTHCXcxtlsp By: SYSTEM SYSTEM on 27-45-9800Ethipqznivttb LM Ql (Bld)PRESENT *NA* (02/12/24 4:47 PM)Invalid Interpretation CodeRemisol HemeTarget cells LM Ql (Bld) PRESENT *NA* (02/12/24 4:47 PM)Invalid Interpretation CodeRemisol HemeHct & Hgbon 02-12-2024 Hematocrit (Bld) [Volume fraction]22.7 %Low37.7-49.0[facility] Comment on above:Performed By: #### [id number] #### [facility] [address] [place] [address]Acysfrarrf (Bld) [Mass/Vol]7.3 g/dLLow13.5-17.5Fisher [facility] Medical CenterComment on above:Performed By: #### [id number] #### [facility] [address] [place] [address]Hcwx OR Intraoperative Recordon 54-16-4970Qwsv OR Intraoperative RecordMain OR Intraoperative Record IntraOp Document Type FT Summary Primary Physician: Mike Montes MD Finalized Date/Time: 02/12/24 14:48:28 Pt. Name: MATTEO CHRISTIAN, MYRA Aceves/Sex: 1965 Male Med Rec #: [id number] Physician: Mike Montes MD Financial #: [id number] Pt. Type: A Room/Bed: [facility] Admit/Disch: 02/12/24 11:13:26 - Institution: Case Times [...] Simmons Role Performed Anesthesiologist Surgeon - Primary Statuary Painter - Primary Destination Specialist Time In 02/12/24 13:26:00 02/12/24 13:45:00 02/12/24 13:26:00 Time Out 02/12/24 14:44:00 02/12/24 14:31:00 02/12/24 14:44:00 Procedure KNEE AMPUTATION KNEE AMPUTATION KNEE AMPUTATION BELOW(Right) BELOW(Right) BELOW(Right) Comments , anesthesia casting and pasting supervisor Last Modified By: Sara STERN, Tyree Ruiz RN, Tyree Ruiz RN, Tyree [place] 02/12/24 14:44:09 02/12/24 14:44:09 02/12/24 14:44:09 Entry 4 Entry 5 Entry 6 Case Attendee Robinson STERN, Jenise Jaquez CUTTING INSPECTOR, Radha Corona Role Performed Statuary Painter - Primary CUTTING INSPECTOR/SA Scrub - Primary Time In 02/12/24 13:26:00 02/12/24 13:26:00 02/12/24 13:26:00 Time Out 02/12/24 14:44:00 02/12/24 14:44:00 02/12/24 14:44:00 Procedure KNEE AMPUTATION KNEE AMPUTATION KNEE AMPUTATION BELOW(Right) BELOW(Right) BELOW(Right) Comments in orientation Last Modified By: Sara STERN, Tyree Ruiz RN, Tyree Ruiz RN, Tyree Simmons 02/12/24 14:44:09 02/12/24 14:44:09 02/12/24 14:44:09 General Comments: Lima Puckett- inside sales executive, observing surgical case. Perioperative Protocols FT Pre-Care [...] I70.261-Atherosclerosis Postop Same As Preop Yes of [facility] arteries of extremities with gangrene, right leg. Postop Diagnosis I70.261-Atherosclerosis Outcomes Met? Yes of [facility] [place] arteries of extremities with gangrene, right leg. [...] and tissue Entry 1 Skin Integrity Intact, [place], Warm, & Skin Abnormality No Dry Outcomes Met? Yes Last Modified By: Tyree Ruiz RN 02/12/24 12:50:23 Post-Care Text: The patient is free from signs and symptoms of injury caused by extraneous objects Patient Positioning FT Pre-Ca (more content not included)...[facility] Recordon [id number] OR PACU I RecordMain OR PACU I Record PACU Phase I Document Type FT Summary Primary Physician: Mike Montes MD Finalized Date/Time: 02/12/24 17:14:55 Pt. Name: MYRA PICKARD SR/Sex: 1965 Male Med Rec #: [id number] Physician: Mike Montes MD Financial #: [id number] Pt. Type: Room/Bed: [place] [address] Admit/Disch: 02/12/24 11:13:26 - Institution: Case Times [...] Signatures Signed By: Lima Bolaños RN 02/12/24 17:14[facility] Preoperative Recordon [id number] OR Preoperative RecordMain OR Preoperative Record PreOp Document Type FT Summary Primary Physician: Mike Montes MD Finalized Date/Time: 02/12/24 13:26:50 Pt. Name: MYRA PICKARD SR/Sex: 1965 Male Med Rec #: [id number] Physician: Mike Montes MD Financial #: [id number] Pt. Type: Room/Bed: [place] [address] Admit/Disch: 02/12/24 11:13:26 - Institution: Case Times [...] Signatures Signed By: Tyree Ruiz RN 02/12/24 13:26NormalMercy Health Defiance HospitalPT & PTTon 74-32-6941xGIN Coag (PPP) [Time]28.0 second(s)Koplwv80.1-36.5FAvita Health System Bucyrus HospitalComment on above:Result Comment: Parameter 15 days - [...] the same coagulation reagent and instrumentation as [facility]. Currently there are no coagulation studies available worldwide for children to 14 days, andno normal ranges. Heparin therapeutic range (represented by Anti-Factor Xa activity of 0.2 - 0.4 U/mL) corresponds to PTT of 56.6 - 109.0 sec.Performed By: #### [id number] #### [place] [facility] [address], [place] [address]HAT Coag (PPP) [Relative time]1.12 {INR}Invalid Interpretation [facility] HospitalComment on above:Result Comment: INR results are specifically intended to assess patients stabilized on long-term Anticoagulation therapy suggested INR?s ?Less Intensive Anticoagulation? 2.0 ? 3.0 Conventional Range 3.0 ? 4.5Performed By: #### [id number] #### [facility] [address], [place] [address]XY Coag (PPP) [Time]12.6 second(s)High9.4-12.5FAvita Health System Bucyrus HospitalComment on above:Result Comment: 15 days - 4 [...] the same coagulation reagent and instrumentation as [facility]. Currently there are no coagulation studies available worldwide for children to 14 days, andno normal ranges.Performed By: #### [id number] #### [place] [facility] [address], [place] [address]tYRQba 26-31-9402cWOH99 mL/min/1.73 m2Low>=59Formerly [facility] Centerer [facility] CenterComment on above:Order Comment: Order added by Discern Expert. Performed By: #### [id number] #### [place] [facility] [address], [place] [address]Rzsalehtl partial thromboplastin time (aPTT) in platelet poor plasma by coagulation aon 41-59-0576sWCN Coag (PPP) [Time]25.6 s22.3-36.2 [facility] CenteraPTT Coag (PPP) [Time]Activated partial thromboplastin time (aPTT) in platelet poor plasma by coagulation a22.3-36.2 [facility] CenterBasophils Auto (Bld) [#/Vol]on 02-08-2024 Basophils (Bld) [#/Vol]0.1 10 3/uL0.0-0.1FMarion Hospital Basophils (Bld) [#/Vol]Automated basophil count0.0-0.1FMarion HospitalBasophils/100 WBC Auto (Bld)on 32-20-2191Yyevkqyyh/100 WBC (Bld)0.7 % 0.2-2.0[facility] CenterBasophils/100 WBC (Bld)Automated basophil %0.2-2.0[facility] CenterEosinophils/100 WBC Auto (Bld) on 80-73-0558Ficvzeygzar/100 WBC (Bld)3.1 %0.9-7.0[facility] CenterEosinophils/100 WBC (Bld)Automated eosinophil %0.9-7.0[facility] Medical CenterErythrocyte distribution width Auto (RBC) [Ratio]on 02-08-2024 Erythrocyte distribution width (RBC) [Ratio]16.3 %High11.0-15.0[facility]. [facility] Medical CenterErythrocyte distribution width (RBC) [Ratio]Erythrocyte distribution width [Ratio] by Automated jdsmbIprf94.0-15.0[facility] Medical CenterEstimated glomerular filtration rate (GFR) non- Americanon 10-30-9956PCK/1.73 sq M.predicted among non-blacks MDRD (S/P/Bld) [Vol rate/Area]38 mL/min/{1.73_m2}Low>=60[facility] Medical CenterGFR/1.73 sq M.predicted among non-blacks MDRD (S/P/Bld) [Vol rate/Area]Estimated glomerular filtration rate (GFR) non- AmericanLow>=60St. [facility] Medical CenterHematocrit Auto (Bld) [Volume fraction]on 96-44-5347Emsjbhkhfh (Bld) [Volume fraction]29.8 %Low42.0-54.0[facility] Medical CenterHematocrit (Bld) [Volume fraction]Hematocrit [Volume Fraction] of Blood by Automated count Low42.0-54.0St[facility] Medical CenterHemoglobin [Mass/volume] in Bloodon 42-57-4144Gencxkidbu (Bld) [Mass/Vol]9.1 g/dLLow14.0-18.0St[facility] Medical CenterHemoglobin (Bld) [Mass/Vol]Hemoglobin [Mass/volume] in BloodLow 14.0-18.0St. [facility] Medical CenterINR in Platelet poor plasma by Coagulation assayon 17-63-0374BTT Coag (PPP) [Relative time]1.02 {INR}[facility] Medical CenterComment on above:DESIRED INR:2.0-3.0 CONDITIONS NOT LISTED BELOW2.5-3.5 FOR PROSTHETIC HEART VALVE REPLACEMENT2.5-3.5 RECURRENT THROMBOSISINR Coag (PPP) [Relative time]INR in Platelet poor plasma by Coagulation assaySt. Mary'S Medical CenterComment on above:DESIRED INR:2.0-3.0 CONDITIONS NOT LISTED BELOW2.5-3.5 FOR PROSTHETIC HEART VALVE REPLACEMENT2.5-3.5 RECURRENT THROMBOSISLaboratory - Chemistry and Chemistry - challengeon 46-65-3806Ahkkwig [Mass/Vol]9.4 mg/dL8.5-10.1FMarion HospitalChloride [Moles/Vol]99 mmol/A35-091AnrrpfgjwSt. Mary'S Medical CenterCO2 [Moles/Vol]28.9 mmol/L21.0-32.0[facility] Creatinine [Mass/Vol]1.84 mg/dLHigh0.70-1.30[facility] GFR/1.73 sq M.predicted MDRD (S/P/Bld) [Vol rate/Area]46 mL/min/{1.73_m2}Low>=60 [address] [facility] CenterGlucose [Mass/Vol]184 mg/sIVdzw30-347ZbuehxksnSt. Mary'S Medical CenterPotassium [Moles/Vol]4.0 mmol/L3.5-5.1FTriHealth Good Samaritan Hospitalodium [Moles/Vol]138 mmol/E523-268CfccvqvrsSt. Mary'S Medical CenterUrea nitrogen [Mass/Vol]21.0 mg/dLHigh7.0-18.0St[facility] Medical CenterUrea nitrogen/Creatinine [Mass ratio]11.4 mg/mgSt. Mary'S Medical CenterLaboratory - Hematology and Cell countson 60-96-5207Blccnlne granulocytes/100 WBC (Bld)0.4 %0.0-0.5FMarion Hospital Leukocytes [#/volume] corrected for nucleated erythrocytes in Blood by Automated counon 67-53-4745MSQ corrected for nucl RBC Auto (Bld) [#/Vol]10.1 10 3/uL 4.0-11.0[facility] Medical CenterWBC corrected for nucl RBC Auto (Bld) [#/Vol]Leukocytes [#/volume] corrected for nucleated erythrocytes in Blood by Automated coun4.0-11.0St. [facility] Medical CenterLymphocytes Auto (Bld) [#/Vol]on 65-46-5098Uvghwkhigiz (Bld) [#/Vol]1.6 10 3/uL1.2-3.8St. [facility] Medical CenterLymphocytes (Bld) [#/Vol]Lymphocytes [#/volume] in Blood by Automated count1.2-3.8St. [facility] Medical CenterLymphocytes/100 WBC Auto (Bld)on 81-76-8831Mxegstyfbtz/100 WBC (Bld)15.6 %Low20.5-60.0[facility] CenterLymphocytes/100 WBC (Bld)Lymphocytes/100 leukocytes in Blood by Automated qxjoxKlx19.5-60.0[facility] Auto (RBC) [Entitic mass]on 72-77-0914IWA (RBC) [Entitic mass]21.9 pgLow25.9-34.0 [facility] (RBC) [Entitic mass]MCH [Entitic mass] by Automated cfeasDxe35.9-34.0[facility] HospitalHC Auto (RBC) [Mass/Vol]on 49-64-5787TSSO (RBC) [Mass/Vol]30.5 g/dL29.9-35.2FSt. Rita's HospitalHC (RBC) [Mass/Vol]MCHC [Mass/volume] by Automated count 29.9-35.2FMarion HospitalMCV Auto (RBC) [Entitic vol]on 09-04-3496YAU (RBC) [Entitic vol]71.8 fLLow80.0-94.0[facility] Charles HospitalV (RBC) [Entitic vol]MCV [Entitic volume] by Automated eakjwGcl88.0-94.0 [facility] Medical CenterMonocytes Auto (Bld) [#/Vol]on 02-08-2024 Monocytes (Bld) [#/Vol]0.8 10 3/uL0.3-0.8[facility] Monocytes (Bld) [#/Vol]Automated blood monocyte count0.3-0.8[facility] CenterMonocytes/100 WBC Auto (Bld)on 16-62-5411Caovhvlnh/100 WBC (Bld) 7.5 %1.7-12.0[facility] CenterMonocytes/100 WBC (Bld)Automated monocyte %1.7-12.0[facility] Medical CenterNeutrophils Auto (Bld) [#/Vol]on 09-82-9694Boexvjozuse (Bld) [#/Vol]7.4 10 3/uLHigh1.4-6.5FMarion HospitalNeutrophils (Bld) [#/Vol]Neutrophils [#/volume] in Blood by Automated countHigh1.4-6.5FMarion HospitalNeutrophils/100 WBC Auto (Bld)on 77-13-8552Fulfeudeiyb/100 WBC (Bld)72.7 %43.0-75.0[facility] CenterNeutrophils/100 WBC (Bld)Automated neutrophil %43.0-75.0 [facility] CenterNo Panel Informationon 83-30-4006Mcjkzklafnl # (Auto)0.3 10 3/uL0.0-0.7FMarion HospitalImmature Granulocyte # (Auto)0.04 10 3/uLHigh0.00-0.03[facility]11.4FMarion Hospital0.3 10 3/uL0.0-0.7FMarion Hospital21.0 mg/dLHigh7.0-18.0[facility]9.4 mg/dL8.5-10.1FMarion Hospital99 mmol/G96-927WsstpyiwtSt. Mary'S Medical Center28.9 mmol/L21.0-32.0[facility]0.04 10 3/uLHigh0.00-0.03 [facility]1.84 mg/dLHigh0.70-1.30[facility]0.4 %0.0-0.5FMarion Hospital46Low>=60[facility]184 mg/oVLrak03-366HfoqdtuqsSt. Mary'S Medical Center4.0 mmol/L3.5-5.1FMarion Hospital138 mmol/P286-055VfwlmbtbaSt. Mary'S Medical CenterPlatelet mean volume Auto (Bld) [Entitic vol]on 59-67-6347Nmkhgeji mean volume (Bld) [Entitic vol]10.7 fL9.5-13.5FMarion HospitalPlatelet mean volume (Bld) [Entitic vol]Platelet mean volume [Entitic volume] in Blood by Automated count9.5-13.5FMarion HospitalPlatelets Auto (Bld) [#/Vol]on 82-64-7228Nujyqgphj (Bld) [#/Vol] 322 10 3/kM084-677CohrmqfbzSt. Mary'S Medical CenterPlatelets (Bld) [#/Vol] Platelets [#/volume] in Blood by Automated hikxd909-699WphuoxzluSt. Mary'S Medical CenterProthrombin time (PT)on 36-64-0309QW Coag (PPP) [Time]10.8 s 9.0-11.6FMarion HospitalPT Coag (PPP) [Time]Prothrombin time (PT)9.0-11.6FMarion HospitalRB Auto (Bld) [#/Vol]on 02-08-2024 RBC (Bld) [#/Vol]4.15 10 6/uLLow4.70-6.10St. [facility] Medical CenterRB (Bld) [#/Vol]Erythrocytes [#/volume] in Blood by Automated countLow4.70-6.10 [facility] Centererum or plasma anion gap determinationon 16-76-3889Ukuqo gap [Moles/Vol]14.1 mmol/LFMarion HospitalAnion gap [Moles/Vol]Serum or plasma anion gap determinationSt. Mary'S Medical CenterALL CBC WITH AUTO DIFFon 99-53-5421CIBLOWBEF ABSOLUTE AUTO0.1NOMS HealthcareBasophils/100 WBC (Bld)1.2 %0.2 - 2.0 %NOMS HealthcareEosinophils/100 WBC (Bld)2.9 %0.9 - 7.0 %NOMS HealthcareErythrocyte distribution width (RBC) [Ratio]16.4 %High11.0 - 15.0 %NOMS HealthcareHematocrit (Bld) [Volume fraction] 28.7 %Low42.0 - 54.0 %NOMS HealthcareHemoglobin (Bld) [Mass/Vol]8.7 g/dLLow14.0 - 18.0 g/dLNOMS HealthcareIMMATURE GRANULOCYTES ABS AUTO0.06HighNOMS Healthcare Immature granulocytes/100 WBC (Bld)0.7 %High0.0 - 0.5 %[facility] Interpretation and review of laboratory resultsAbnormalAudrain Medical Center LYMPHOCYTES ABSOLUTE AUTO1.8NOMercy McCune-Brooks HospitalLymphocytes/100 WBC (Bld)21.5 %20.5 - 60.0 %[facility] HospitalH (RBC) [Entitic mass]22.3 pgLow25.9 - 34.0 pgLiberty HospitalHC (RBC) [Mass/Vol]30.3 g/dL29.9 - 35.2 g/dLLiberty HospitalV (RBC) [Entitic vol]73.6 fLLow80.0 - 94.0 fLAudrain Medical CenterMONOCYTES ABSOLUTE AUTO0.7 [facility] CenterMonocytes/100 WBC (Bld)8.7 %1.7 - 12.0 %[facility] NEUTROPHILS ABSOLUTE AUTO5.4NOMercy McCune-Brooks HospitalNeutrophils/100 WBC (Bld)65.0 %43.0 - 75.0 %[facility] Medical CenterPlatelet mean volume (Bld) [Entitic vol]10.4 fL9.5 - 13.5 fLAudrain Medical CenterTB EO #0.2NOMS [facility] Private HospitalTB TCW120QYCFBarton County Memorial Hospital RBC3.90 LowAudrain Medical CenterTB WBC8.3[facility] Medical CenterCLINISYNCNTwo Rivers Psychiatric HospitalActivated partial thromboplastin time (aPTT) in platelet poor plasma by coagulation aon 33-15-3742iEPD Coag (PPP) [Time]25.3 s22.3-36.2FMarion Hospital aPTT Coag (PPP) [Time]Activated partial thromboplastin time (aPTT) in platelet poor plasma by coagulation a22.3-36.2FMarion HospitalBasophils Auto (Bld) [#/Vol]on 28-22-6382Xiyurmrrm (Bld) [#/Vol]0.1 10 3/uL0.0-0.1 [facility] CenterBasophils (Bld) [#/Vol]Automated basophil count 0.0-0.1FMarion HospitalBasophils/100 WBC Auto (Bld)on 54-21-6707Emqjayvan/100 WBC (Bld)1.2 %0.2-2.0[facility] Basophils/100 WBC (Bld)Automated basophil %0.2-2.0[facility] Medical CenterEosinophils/100 WBC Auto (Bld)on 61-19-2005Gbviqwfnyct/100 WBC (Bld)2.9 % 0.9-7.0[facility] CenterEosinophils/100 WBC (Bld)Automated eosinophil %0.9-7.0St. [facility] Medical CenterErythrocyte distribution width Auto (RBC) [Ratio]on 17-38-9912Ddmxqowhqlp distribution width (RBC) [Ratio]16.4 %High11.0-15.0St. [facility] Medical CenterErythrocyte distribution width (RBC) [Ratio]Erythrocyte distribution width [Ratio] by Automated tkginWqvz59.0-15.0[facility] CenterEstimated glomerular filtration rate (GFR) non- Americanon 11-84-9781XWB/1.73 sq M.predicted among non-blacks MDRD (S/P/Bld) [Vol rate/Area]34 mL/min/{1.73_m2} Low>=60[facility] CenterGFR/1.73 sq M.predicted among non-blacks MDRD (S/P/Bld) [Vol rate/Area]Estimated glomerular filtration rate (GFR) non- AmericanLow>=60St. [facility] Medical CenterHematocrit Auto (Bld) [Volume fraction]on 44-24-2397Ynqrlwzlet (Bld) [Volume fraction]28.7 %Low 42.0-54.0St[facility] Medical CenterHematocrit (Bld) [Volume fraction] Hematocrit [Volume Fraction] of Blood by Automated mcqorPfe77.0-54.0St[facility] Medical CenterHemoglobin [Mass/volume] in Bloodon 36-10-2191Wphhmarzaz (Bld) [Mass/Vol]8.7 g/dLLow14.0-18.0St[facility] Medical CenterHemoglobin (Bld) [Mass/Vol]Hemoglobin [Mass/volume] in HxqvtDyt48.0-18.0St. [facility] Medical CenterINR in Platelet poor plasma by Coagulation assayon 26-93-6073MKE Coag (PPP) [Relative time]1.02 {INR}[facility]S Medical CenterComment on above:DESIRED INR:2.0-3.0 CONDITIONS NOT LISTED BELOW2.5-3.5 FOR PROSTHETIC HEART VALVE REPLACEMENT2.5-3.5 RECURRENT THROMBOSISINR Coag (PPP) [Relative time]INR in Platelet poor plasma by Coagulation assaySt. Mary'S Medical CenterComment on above:DESIRED INR:2.0-3.0 CONDITIONS NOT LISTED BELOW2.5-3.5 FOR PROSTHETIC HEART VALVE REPLACEMENT2.5-3.5 RECURRENT THROMBOSISLaboratory - Chemistry and Chemistry - challengeon 04-41-8727Wjwcckv [Mass/Vol]9.0 mg/dL 8.5-10.1FMarion HospitalChloride [Moles/Vol]100 mmol/L98-107 [facility] Medical CenterCO2 [Moles/Vol]26.7 mmol/L21.0-32.0[facility] CenterCreatinine [Mass/Vol]2.03 mg/dLHigh0.70-1.30[facility] CenterGFR/1.73 sq M.predicted MDRD (S/P/Bld) [Vol rate/Area]41 mL/min/{1.73_m2}Low>=60St[facility] Medical CenterGlucose [Mass/Vol]268 mg/fXApcf93-284GpkevjdymSt. Mary'S Medical CenterPotassium [Moles/Vol]4.3 mmol/L 3.5-5.1FTriHealth Good Samaritan Hospitalodium [Moles/Vol]137 mmol/K302-225 [facility] Medical CenterUrea nitrogen [Mass/Vol]25.0 mg/dLHigh7.0-18.0 [facility] Medical CenterUrea nitrogen/Creatinine [Mass ratio]12.3 mg/mg [facility] CenterLaboratory - Hematology and Cell countson 75-01-2650Gxekoaky granulocytes/100 WBC (Bld)0.7 %High0.0-0.5FMarion HospitalLeukocytes [#/volume] corrected for nucleated erythrocytes in Blood by Automated counon 09-73-4257FSE corrected for nucl RBC Auto (Bld) [#/Vol]8.3 10 3/uL4.0-11.0[facility] Medical CenterWBC corrected for nucl RBC Auto (Bld) [#/Vol]Leukocytes [#/volume] corrected for nucleated erythrocytes in Blood by Automated coun4.0-11.0[facility] Lymphocytes Auto (Bld) [#/Vol]on 25-38-9919Siolyquprus (Bld) [#/Vol]1.8 10 3/uL 1.2-3.8St[facility] Medical CenterLymphocytes (Bld) [#/Vol]Lymphocytes [#/volume] in Blood by Automated count1.2-3.8[facility] Lymphocytes/100 WBC Auto (Bld)on 10-82-4677Giltmghtznf/100 WBC (Bld)21.5 % 20.5-60.0[facility] Medical CenterLymphocytes/100 WBC (Bld) Lymphocytes/100 leukocytes in Blood by Automated count20.5-60.0[facility] Auto (RBC) [Entitic mass]on 21-92-4454SBC (RBC) [Entitic mass]22.3 pgLow25.9-34.0[facility] HospitalH (RBC) [Entitic mass]MCH [Entitic mass] by Automated vyekbAra42.9-34.0[facility] HospitalHC Auto (RBC) [Mass/Vol]on 54-95-2179BIKI (RBC) [Mass/Vol]30.3 g/dL29.9-35.2FSt. Rita's HospitalHC (RBC) [Mass/Vol]MCHC [Mass/volume] by Automated count29.9-35.2FMarion HospitalMCV Auto (RBC) [Entitic vol]on 68-46-2348HJS (RBC) [Entitic vol] 73.6 fLLow80.0-94.0[facility] [address] Charles HospitalV (RBC) [Entitic vol]MCV [Entitic volume] by Automated slpspGbj78.0-94.0[facility] Monocytes Auto (Bld) [#/Vol]on 87-35-6496Gblqtyhdy (Bld) [#/Vol]0.7 10 3/uL 0.3-0.8St[facility] Medical CenterMonocytes (Bld) [#/Vol]Automated blood monocyte count0.3-0.8[facility] CenterMonocytes/100 WBC Auto (Bld)on 09-83-3135Aupsdmlxu/100 WBC (Bld)8.7 %1.7-12.0[facility] CenterMonocytes/100 WBC (Bld)Automated monocyte %1.7-12.0[facility] Medical CenterNeutrophils Auto (Bld) [#/Vol]on 88-38-2368Aexblkckbep (Bld) [#/Vol]5.4 10 3/uL1.4-6.5FMarion HospitalNeutrophils (Bld) [#/Vol]Neutrophils [#/volume] in Blood by Automated count1.4-6.5FMarion HospitalNeutrophils/100 WBC Auto (Bld)on 02-01-2024 Neutrophils/100 WBC (Bld)65.0 %43.0-75.0[facility] Neutrophils/100 WBC (Bld)Automated neutrophil %43.0-75.0[facility] CenterNo Panel Informationon 54-66-4770Hcfebkmzane # (Auto)0.2 10 3/uL 0.0-0.7FMarion HospitalImmature Granulocyte # (Auto)0.06 10 3/uLHigh0.00-0.03[facility]12.3FMarion Hospital25.0 mg/dLHigh7.0-18.0[facility]0.2 10 3/uL0.0-0.7 [facility]9.0 mg/dL8.5-10.1FMarion Hospital100 mmol/T91-043VhxbvedywSt. Mary'S Medical Center26.7 mmol/L21.0-32.0 [facility]2.03 mg/dLHigh0.70-1.30[facility]0.06 10 3/uLHigh0.00-0.03[facility]41Low >=60[facility]0.7 %High0.0-0.5FMarion Hospital268 mg/sJBrvr48-332PudirlnkkSt. Mary'S Medical Center4.3 mmol/L3.5-5.1 [facility]137 mmol/P670-725YdoszugwfSt. Mary'S Medical CenterPlatelet mean volume Auto (Bld) [Entitic vol]on 83-71-4484Pxnhrwvo mean volume (Bld) [Entitic vol]10.4 fL9.5-13.5FMarion Hospital Platelet mean volume (Bld) [Entitic vol]Platelet mean volume [Entitic volume] in Blood by Automated count9.5-13.5FMarion HospitalPlatelets Auto (Bld) [#/Vol]on 66-94-2226Ojofftsiz (Bld) [#/Vol]397 10 3/bF243-195XxsxcwacfSt. Mary'S Medical CenterPlatelets (Bld) [#/Vol]Platelets [#/volume] in Blood by Automated ltoes222-854LcxfvmfghSt. Mary'S Medical CenterProthrombin time (PT)on 27-80-2839ET Coag (PPP) [Time]10.8 s9.0-11.6FMarion HospitalPT Coag (PPP) [Time]Prothrombin time (PT)9.0-11.6FMarion Hospital RBC Auto (Bld) [#/Vol]on 85-82-3183LHX (Bld) [#/Vol]3.90 10 6/uLLow4.70-6.10 [facility] Medical CenterRBC (Bld) [#/Vol]Erythrocytes [#/volume] in Blood by Automated countLow4.70-6.10[facility] Centererum or plasma anion gap determinationon 63-05-1236Pwwpr gap [Moles/Vol]14.6 mmol/L [facility] Medical CenterAnion gap [Moles/Vol]Serum or plasma anion gap determinationSt. Mary'S Medical CenterProvider Letteron 01-29-2024 Provider LetterProvider Letter January 29, 2024 MYRA PICKARD [address] [place] [address] [address] [place] [id number] : 1965 Dear Myra, We have been [...] [facility] [address], [place] [address] FdzcehKqcklvWyandot Memorial HospitalOperative Reporton [id number] ReportOperative Report PREOPERATIVE DIAGNOSIS: Right lower extremity [...] induced andthen obtained a micro-access upsized to 5-Ukrainian sheath, placed the catheter in the abdominal [...] well. Mike Montes M.D. ca Dictated: 01/08/2024 [id number] Transcribed: 01/08/2024[facility] HospitalComment on above:Result Comment: Electronically Signed By: Mike Montes MD\.br\Date and Time Signed: 01/11/24 18:26 EDTCoding Queryon 87-57-5008Bobqpy QueryCoding Query From: Viviane Azul To: Mike Montes MD; Cc: Monique Saldivar; Sent: 01/10/2024 14:42:56 EDT ! Subject: Coding Query (Template) CODING COMMUNICATION: _XX_ Procedure information missing: Please document the Pre and Post-Op Diagnosis. Please feel free to contact the coding department with any questions. Thank you! [facility] Memorial HospitalBMPon [id number] gap [Moles/Vol]13 mmol/LNormal6-16[facility] HospitalComment on above:Performed By: #### [id number] #### [facility] [address], [place] [address]Mhwrcyh [Mass/Vol]9.1 mg/dLNormal8.9-11.1[facility] CenterComment on above:Performed By: #### [id number] #### [facility] [address], [place] [address]Auqnazlb [Moles/Vol]103 mmol/IYdydmv037-053RhbkqqMercy Health Defiance HospitalComment on above:Performed By: #### [id number] #### [facility] [address], [place] [address]OA2 [Moles/Vol]25 mmol/HDfdgwc69-34XsppvzMercy Health Defiance Hospital Comment on above:Performed By: #### [id number] #### [facility] [address], [place] [address]Xokecmkexk [Mass/Vol]1.9 mg/dLHigh0.5-1.3FAvita Health System Bucyrus HospitalComment on above:Performed By: #### [id number] #### [facility] [address], [place] [address]Ttfmmgw [Mass/Vol]138 mg/nARtdhkc86-736IhcikrMercy Health Defiance HospitalComment on above:Performed By: #### [id number] #### [facility] [address], [place] [address]Xiypqbjip [Moles/Vol]4.2 mmol/LNormal3.5-5.3FAvita Health System Bucyrus HospitalComment on above:Performed By: #### [id number] #### [facility] [address], [place] [address]Vgfpji [Moles/Vol]137 mmol/NBtgjoq362-116DqscpgMercy Health Defiance HospitalComment on above:Performed By: #### [id number] #### [facility] [address], [place] [address]Ebfv nitrogen [Mass/Vol]26 mg/dLHigh5-21[facility] HospitalComment on above:Performed By: #### [id number] #### [facility] [address], [place] [address] nitrogen/Creatinine [Mass ratio]14 No KgsodCchlmg91-61 [facility] HospitalComment on above:Performed By: #### [id number] #### [facility] [address], [place] [address]AIN w/ Auto Diffon [id number]/100 WBC (Bld)1.2 %Normal 0.0-2.0[facility] HospitalComment on above:Performed By: #### [id number] #### [facility] [address], [place] [address]Rpalzgufp/Leukocytes Auto (Bld) [Pure # fraction]0.1 E9/LNormal 0.0-0.2FAvita Health System Bucyrus HospitalComment on above:Performed By: #### [id number] #### [facility] [address] [place] [address] [id number] (Bld) [#/Vol]0.4 E9/LNormal0.0-0.5FAvita Health System Bucyrus HospitalComment on above:Performed By: #### [id number] #### [facility] [address] [place] [address] 73744Kcsmdqlnnvr/100 WBC (Bld)4.3 %Normal0.0-8.0[facility] HospitalComment on above:Performed By: #### [id number] #### [facility] [address] [place] [address] 10021Dxwxskpvrfo distribution width (RBC) [Ratio]17.3 %High10.9-14.2 [facility] HospitalComment on above:Performed By: #### [id number] #### [facility] [address] [place] [address] [id number] (Bld) [Volume fraction]26.8 %Low37.7-49.0[facility] HospitalComment on above:Performed By: #### [id number] #### [facility] [address] [place] [address] [id number] (Bld) [Mass/Vol]8.8 g/dLLow13.5-17.5FAvita Health System Bucyrus HospitalComment on above:Performed By: #### [id number] #### [facility] [address] [place] [address] 17818Ltabqausyzm Auto Ql (Bld)PRESENTInvalid Interpretation Code [facility] HospitalComment on above:Performed By: #### [id number] #### [facility] [address] [place] [address] 52046Fhsuqlhhxgr (Bld) [#/Vol]2.3 E9/LNormal1.0-4.0[facility] HospitalComment on above:Performed By: #### [id number] #### [facility] [address], [place] [address]Jzvtfinyuxu/100 WBC (Bld)22.6 %Rdscgd28.0-50.0[facility] HospitalComment on above:Performed By: #### [id number] #### [facility] [address] [place] [address] 31936IQG (RBC) [Entitic mass]24.5 pgLow27.0-34.0[facility] HospitalComment on above:Performed By: #### [id number] #### [facility] [address] [place] [address] 95331WACE (RBC) [Mass/Vol]33.0 g/aMNinimo84.4-36.0[facility] HospitalComment on above:Performed By: #### [id number] #### [facility] [address] [place] [address] 75170WBP (RBC) [Entitic vol]74.2 fLLow80.0-100.0[facility] HospitalComment on above:Performed By: #### [id number] #### [facility] [address] [place] [address] 93527Ggipvfpkib Ql (Bld)PRESENTInvalid Interpretation CodeMercy Health Defiance HospitalComment on above:Performed By: #### [id number] #### [facility] [address] [place] [address] 54485Mggvibhqn (Bld) [#/Vol]0.9 E9/LNormal0.2-1.0[facility] HospitalComment on above:Performed By: #### [id number] #### [facility] [address] [place] [address] 21392Wgovamgwzae (Bld) [#/Vol]6.6 E9/LNormal2.0-7.5FAvita Health System Bucyrus HospitalComment on above:Performed By: #### [id number] #### [facility] [address] [place] [address] 66373Tbaguabtpvc/100 WBC (Bld)63.4 %Dsfnuh92.0-75.0[facility] HospitalComment on above:Performed By: #### [id number] #### [facility] [address] [place] [address] 69963Obmmjulu222.0 E9/MErwpfr267.0-500.0[facility] Comment on above:Performed By: #### [id number] #### [facility] [address] [place] [address] 37688Cainwdkh mean volume (Bld) [Entitic vol]8.7 fLNormal6.4-10.8 [facility] HospitalComment on above:Performed By: #### [id number] #### [facility] [address] [place] [address] 05736YIO (Bld) [#/Vol]3.6 E12/LLow4.3-5.9[facility] Comment on above:Performed By: #### [id number] #### [facility] [address] [place] [address] 26450ODF size Nom (Bld)SEE MORPHOLOGYInvalid Interpretation Code [facility] HospitalComment on above:Performed By: #### [id number] #### [facility] [address] [place] [address] 57790RWT corrected for nucl RBC Auto (Bld) [#/Vol]10.4 E9/LNormal 4.0-11.0[facility] HospitalComment on above:Performed By: #### [id number] #### [facility] [address] [place] [address] [id number] Clinical Summaryon 90-15-4968Gdmriazyf Clinical SummaryInpatient Clinical Summary [address] [address] Clinical Summary Person Information: Name: MYRA PICKARD SR Age: 58 Years : 1965 Sex: Male PCP: TERESA LYNCH DO Marital Status: Race: White Ethnicity: Non- or Language: Cymro Visit Id: Visit Reason: I70.261 Speciality: Acuity: Enc Type: Ambulatory/Same Day Surgery Med Service: Surgery Arrival: 01/08/2024 11:49:03 Discharge: Dispo Type: Address: [address] [place] [address] [address] [facility] [id number] Provider Notes: Diagnosis: Problems Active Gross hematuria [...] up: With: Address: When: Mike Montes [address] [place], [place] [phone] Business (1) Comments: Call for followup appointment Type Location Start [facility] Office Visit [facility] [place] 02/12/2024 1:15 PM 02/12/2024 1:30 PM Confirmed Patient Education Information: CV - Cardiovascular PCI Discharge Instructions (CUSTOM)[facility] HospitalInpatient Patient Summaryon 03-04-0629Iksyjlzjc Patient Summary Inpatient Patient Summary [address] [address] Patient Discharge Instructions PERSON INFORMATION [...] up: With: Address: When: Mike Montes [address] [place], [place] [id number] [facility] (1) Comments: Call for followup appointment In the event that this physician does not participate in your insurance network, please consult with your insurance company to find a nearby participating provider. Type Location Start [facility] Office Visit [facility] 02/12/2024 1:15 PM 02/12/2024 1:30 PM [...] 1 Capsules By (more content not included)... [facility] HospitalInter[facility] - Nursingon 01-08-2024 Interdisciplinary Note [...] with and covered with cast padding and KATHERYN.[facility] HospitaleGFRon 10-67-4832zQLC55 mL/min/1.73 m2Low >=[address] [place], [place] [address]Comment on above:Order Comment: Order added by Discern Expert.Performed By: #### [id number] #### [facility] [address], [place] [address]Bxfhvmllisw in LDL Calc [Mass/Vol]on 71-13-5029Bqfhjuhmjhe in LDL [Mass/Vol]47.0 mg/dLSt. Mary'S Medical CenterComment on above:<100 mg/dl GCGUKSH573-573 mg/dl NEAR OR ABOVE PHKFDOL230-799 mg/dl BORDERLINE VIYH226-797 mg/dl HIGH>190 mg/dl VERY HIGHCholesterol in VLDL Calc [Mass/Vol]on 63-27-4955Rzdpdcjhoco in VLDL [Mass/Vol]54.0 mg/dLSt. Mary'S Medical CenterErythrocyte distribution width Auto (RBC) [Ratio]on 63-36-2061Eqvlyaadpjg distribution width (RBC) [Ratio]15.9 %High11.0-15.0St[facility] Medical CenterEstimated glomerular filtration rate (GFR) non- Americanon 58-51-6001GBM/1.73 sq M.predicted among non-blacks MDRD (S/P/Bld) [Vol rate/Area]31 mL/min/{1.73_m2}Low>=60St. [facility]'S Medical CenterGlobulin Calc (S) [Mass/Vol]on 46-13-4796Qlnkiugw (S) [Mass/Vol]3.9 g/dLSt. Mary'S Medical CenterGlucose mean value [Mass/volume] in Blood Estimated from glycated hemoglobinon 83-45-1548Ygxvpew glucose Estimated from glycated hemoglobin (Bld) [Mass/Vol]163 mg/dLSt. Mary'S Medical CenterHematocrit Auto (Bld) [Volume fraction]on 26-73-5638Yyfleapjys (Bld) [Volume fraction]25.6 %Low42.0-54.0St. [facility] Medical CenterHemoglobin [Mass/volume] in Blood on 54-39-2536Gpqnckzeor (Bld) [Mass/Vol]8.0 g/dLLow14.0-18.0[facility] Medical CenterIron binding capacity [Mass/volume] in Serum or Plasmaon 76-96-1624Zqky binding capacity [Mass/Vol]286.0 ug/dL250.0-450.0St[facility] Medical CenterIron saturation [Mass Fraction] in Serum or Plasmaon 66-84-0023Cxdu saturation [Mass fraction]2.8 %[facility] - Chemistry and Chemistry - challengeon 39-99-4485Fzwskqahk (Vitamin B12) [Mass/Vol]156.0 pg/rNQhv166.0-986.0[facility] Ferritin [Mass/Vol]16.0 ng/mLLow26.0-388.0[facility] Medical CenterIron [Mass/Vol]8.0 ug/dLLow65.0-175.0[facility] Medical CenterTransferrin [Mass/Vol]241 mg/pC306-444TnlbfuqhmSt. Mary'S Medical CenterComment on above: Performed at: [place] [facility] [address] [id number] Director: Uriel Borrero PhD, Phone: [phone] [Mass/Vol]2.4 g/dLLow 3.4-5.0[facility] Medical CenterALP [Catalytic activity/Vol]172 U/LHigh 46-116St. [facility] Medical CenterALT [Catalytic activity/Vol]21 U/L16-63 [facility] CenterAST [Catalytic activity/Vol]8 U/NWce66-31 [facility] Medical CenterBilirubin [Mass/Vol]0.2 mg/dL0.2-1.0[facility] Medical CenterCalcium [Mass/Vol]8.4 mg/dLLow8.5-10.1FMarion HospitalChloride [Moles/Vol]98 mmol/R79-064GmljkptiaSt. Mary'S Medical CenterCholesterol [Mass/Vol]127 mg/dL<=200[facility] Cholesterol in HDL [Mass/Vol]26 mg/wZBgk01-47ZmnonfwmuSt. Mary'S Medical Center Comment on above:> or =60 mg/dl - LOW CARDIOVASCULAR RISK<40 mg/dl - HIGH CARDIOVASCULAR RISKCO2 [Moles/Vol]30.5 mmol/L21.0-32.0[facility] Medical CenterCreatinine [Mass/Vol]2.22 mg/dLHigh0.70-1.30St[facility] Medical CenterGFR/1.73 sq M.predicted MDRD (S/P/Bld) [Vol rate/Area]37 mL/min/{1.73_m2} Low>=60St. [facility] Medical CenterGlucose [Mass/Vol]348 mg/oDDoem78-808 [facility] Medical CenterPotassium [Moles/Vol]3.9 mmol/L3.5-5.1FMarion HospitalProtein [Mass/Vol]6.3 g/dLLow6.4-8.2FTriHealth Good Samaritan Hospitalodium [Moles/Vol]137 mmol/F568-809AlbhcnrjqSt. Mary'S Medical CenterTriglyceride [Mass/Vol]270 mg/dLHigh<=150[facility] TSH Qn3.218 m[IU]/L0.358-3.740St. [facility]'S Medical CenterUrea nitrogen [Mass/Vol]21.0 mg/dLHigh7.0-18.0St. [facility] Medical CenterUrea nitrogen/Creatinine [Mass ratio]9.5 mg/mgSt. Mary'S Medical Center Laboratory - Hematology and Cell countson 96-69-1287KzJ9u (Bld) [Mass fraction] 7.3 %High4.5-6.2FMarion HospitalComment on above:ADA RECOMMENDED LIMIT 4.0 - 6.0ADA THERAPEUTIC TARGET < 7.0ACTION SUGGESTED> 7.0 Leukocytes [#/volume] corrected for nucleated erythrocytes in Blood by Automated counon 48-97-3683ZBJ corrected for nucl RBC Auto (Bld) [#/Vol]8.1 10 3/uL 4.0-11.0[facility] HospitalH Auto (RBC) [Entitic mass]on 24-72-8142OHU (RBC) [Entitic mass]24.3 pgLow25.9-34.0St[facility] Medical CenterMCHC Auto (RBC) [Mass/Vol]on 20-40-1765YWVC (RBC) [Mass/Vol]31.3 g/dL 29.9-35.2FMarion HospitalMCV Auto (RBC) [Entitic vol]on 52-80-9469ZPK (RBC) [Entitic vol]77.8 fLLow80.0-94.0[facility] Medical CenterNo Panel Informationon 27-85-8990Opmaur0.6 ng/mL>3.0St[facility]S Medical CenterComment on above:A serum folate concentration of less than 3.1 ng/mL isconsidered to represent clinical deficiency.Performed at: [employer] [id number] Director: Uriel Borrero PhD, Phone: [phone] ng/mL>3.0[facility]241 mg/lQ447-096 [facility]156.0 pg/kKRtp424.0-986.0[facility]16.0 ng/mLLow26.0-388.0[facility]8.0 ug/dL Low65.0-175.0[facility] Medical CenterTroponin I High Sensitivity5.8 pg/mL4.0-76.1FMarion HospitalComment on above:CUT-OFF POINTS HAVE BEEN ESTABLISHED BASED ON THE FOURTHUNIVERSAL DEFINITION OF MYOCARDIAL INFARCTION. THE UPPERREFERENCE LIMIT (URL) OF TROPONIN, DEFINED THE 99THPERCENTILE OF cTnI DISTRIBUTION IN A REFERENCE POPULATION,HAS BEEN CONFIRMED THE DECISION THRESHOLD FOR MIDIAGNOSIS.99TH PERCENTILE = 76.2 PG/MLNOTE: HIGH-SENSITIVITY TROPONIN ASSAY IS NOT INTENDED TO BEUSED IN ISOLATION BUT SHOULD BE INTERPRETED IN CONJUNCTIONWITH OTHER DIAGNOSTIC AND CLINICAL INFORMATION.5.8 pg/mL4.0-76.1FMarion Hospital3.218 u[iU]/mL 0.358-3.740[facility]7.3 %High4.5-6.2FMarion Hospital127 mg/dL<=200[facility]26 mg/pJNwy87-94 [facility]2.4 g/dLLow3.4-5.0[facility]172 U/WUkrq73-081PutakwcskSt. Mary'S Medical Center270 mg/dLHigh<=150 [facility]21 U/T48-44OzoqdyzjcSt. Mary'S Medical Center8 U/RNva08-09NsvynbdaaSt. Mary'S Medical Center9.5FMarion Hospital 21.0 mg/dLHigh7.0-18.0[facility]8.4 mg/dLLow8.5-10.1 [facility]98 mmol/H92-736ArjlmowxySt. Mary'S Medical Center30.5 mmol/L21.0-32.0[facility]2.22 mg/dLHigh 0.70-1.30[facility]37Low>=60[facility]348 mg/dWUdrk21-670RbbpyhfiaSt. Mary'S Medical Center3.9 mmol/L3.5-5.1 [facility]137 mmol/H254-167YtpqtwgdzSt. Mary'S Medical Center0.2 mg/dL0.2-1.0[facility]6.3 g/dLLow6.4-8.2 [facility] Medical CenterPlatelet mean volume Auto (Bld) [Entitic vol]on 31-24-9686Zncptcxg mean volume (Bld) [Entitic vol]10.4 fL9.5-13.5FMarion HospitalPlatelets Auto (Bld) [#/Vol]on 44-42-2423Pjmwrgjrj (Bld) [#/Vol]297 10 3/gK008-065LnddotolqSt. Mary'S Medical CenterRBC Auto (Bld) [#/Vol] on 11-12-2569FRK (Bld) [#/Vol]3.29 10 6/uLLow4.70-6.10[facility] Centererum or plasma albumin/globulin mass ratioon 31-17-3211Xdbpagx/Globulin [Mass ratio]0.6 {ratio}[facility] Centererum or plasma anion gap determinationon 53-18-1744Recjm gap [Moles/Vol]12.4 mmol/LFTriHealth Good Samaritan Hospitalerum or plasma total cholesterol/high density lipoprotein (HDL) cholesterol mass stone 17-60-2653Zhsfvyanuqd.total/Cholesterol in HDL [Mass ratio]4.9 {ratio}[facility] Medical CenterComment on above:3.3 - 4.4 LOW RISK4.4 - 7.1 AVERAGE RISK7.1 - 11.0 MODERATE RISK>11.0 HIGH RISKBasophils Auto (Bld) [#/Vol]on 88-26-0963Qszgokghh (Bld) [#/Vol]0.1 10 3/uL0.0-0.1FMarion HospitalBasophils/100 WBC Auto (Bld)on 35-47-0706Rnhslkflr/100 WBC (Bld)0.7 %0.2-2.0[facility] Medical CenterEosinophils/100 WBC Auto (Bld)on 29-59-8218Enzdyuxmfxy/100 WBC (Bld)2.3 %0.9-7.0[facility] Medical CenterErythrocyte distribution width Auto (RBC) [Ratio]on 12-30-2023 Erythrocyte distribution width (RBC) [Ratio]15.9 %High11.0-15.0[facility] CenterEstimated glomerular filtration rate (GFR) non- Americanon 84-18-5463CDP/1.73 sq M.predicted among non-blacks MDRD (S/P/Bld) [Vol rate/Area]30 mL/min/{1.73_m2}Low>=60[facility] Hematocrit Auto (Bld) [Volume fraction]on 09-64-1159Oloafflvmq (Bld) [Volume fraction]27.1 %Low42.0-54.0[facility] Medical CenterHemoglobin [Mass/volume] in Bloodon 51-53-9710Lbglnuxorm (Bld) [Mass/Vol]8.5 g/dLLow 14.0-18.0[facility] CenterLaboratory - Chemistry and Chemistry - challengeon 21-16-4373Ueytvmp [Mass/Vol]9.2 mg/dL8.5-10.1FMarion HospitalChloride [Moles/Vol]95 mmol/UXfc75-825KqshudpewSt. Mary'S Medical CenterCO2 [Moles/Vol]27.2 mmol/L21.0-32.0[facility] Creatinine [Mass/Vol]2.23 mg/dLHigh0.70-1.30[facility] GFR/1.73 sq M.predicted MDRD (S/P/Bld) [Vol rate/Area]37 mL/min/{1.73_m2}Low>=60 [facility] Medical CenterGlucose [Mass/Vol]193 mg/tDQall23-556OamivjcatSt. Mary'S Medical CenterPotassium [Moles/Vol]3.6 mmol/L3.5-5.1FTriHealth Good Samaritan Hospitalodium [Moles/Vol]132 mmol/KJii716-618CuimlpfbfSt. Mary'S Medical CenterUrea nitrogen [Mass/Vol]22.0 mg/dLHigh7.0-18.0St. [facility]S Medical CenterUrea nitrogen/Creatinine [Mass ratio]9.9 mg/mgSt. Mary'S Medical CenterLaboratory - Hematology and Cell countson 68-11-0724Zpocpohc granulocytes/100 WBC (Bld)0.7 %High0.0-0.5FMarion Hospital Leukocytes [#/volume] corrected for nucleated erythrocytes in Blood by Automated counon 87-26-9115KHR corrected for nucl RBC Auto (Bld) [#/Vol]10.7 10 3/uL 4.0-11.0[facility] Medical CenterLymphocytes Auto (Bld) [#/Vol]on 48-92-8462Lgbleoiauuq (Bld) [#/Vol]2.3 10 3/uL1.2-3.8St. [facility] Medical CenterLymphocytes/100 WBC Auto (Bld)on 28-89-4694Xtcevawtgfi/100 WBC (Bld)21.5 % 20.5-60.0[facility] HospitalH Auto (RBC) [Entitic mass]on 27-33-7657SWL (RBC) [Entitic mass]24.4 pgLow25.9-34.0[facility] Medical CenterMCHC Auto (RBC) [Mass/Vol]on 97-19-7949VQRE (RBC) [Mass/Vol]31.4 g/dL 29.9-35.2FMarion HospitalMCV Auto (RBC) [Entitic vol]on 73-84-5788UHL (RBC) [Entitic vol]77.7 fLLow80.0-94.0[facility] Medical CenterMonocytes Auto (Bld) [#/Vol]on 14-60-5000Xgrkzzjpo (Bld) [#/Vol]0.9 10 3/uLHigh0.3-0.8[facility] Medical CenterMonocytes/100 WBC Auto (Bld)on 86-95-0232Vmnfhbnsq/100 WBC (Bld)8.4 %1.7-12.0[facility] Neutrophils Auto (Bld) [#/Vol]on 18-19-9158Qymhdojrkbh (Bld) [#/Vol]7.1 10 3/uL High1.4-6.5FMarion HospitalNeutrophils/100 WBC Auto (Bld)on 23-91-7294Rwxbvqjnupj/100 WBC (Bld)66.4 %43.0-75.0[facility] Medical CenterNo Panel Informationon 97-70-7367Yoeimgmy I High Sensitivity5.7 pg/mL 4.0-76.1FMarion HospitalComment on above:CUT-OFF POINTS HAVE BEEN ESTABLISHED [...] CONJUNCTIONWITH OTHER DIAGNOSTIC AND CLINICAL INFORMATION.5.7 pg/mL4.0-76.1 [facility] CenterEosinophils # (Auto)0.3 10 3/uL0.0-0.7FMarion HospitalImmature Granulocyte # (Auto)0.07 10 3/uLHigh0.00-0.03 [facility]9.9[facility]22.0 mg/dL High7.0-18.0[facility]0.3 10 3/uL0.0-0.7FMarion Hospital9.2 mg/dL8.5-10.1FMarion Hospital95 mmol/TVut58-913CqtmhqepxSt. Mary'S Medical Center27.2 mmol/L21.0-32.0[facility]2.23 mg/dLHigh0.70-1.30[facility] 0.07 10 3/uLHigh0.00-0.03[facility]37Low>=60[facility]0.7 %High0.0-0.5FMarion Hospital193 mg/cDWcwq96-928PdsvgfnlgSt. Mary'S Medical Center3.6 mmol/L3.5-5.1FMarion Hospital132 mmol/OIxz500-834QjgykonfkSt. Mary'S Medical Center Platelet mean volume Auto (Bld) [Entitic vol]on 03-44-1797Pffmuhob mean volume (Bld) [Entitic vol]10.4 fL9.5-13.5FMarion HospitalPlatelets Auto (Bld) [#/Vol]on 47-91-1106Evqonaslb (Bld) [#/Vol]368 10 3/cH467-107 [facility] Medical CenterRBC Auto (Bld) [#/Vol]on 58-05-1507XHT (Bld) [#/Vol]3.49 10 6/uLLow4.70-6.10[facility] Centererum or plasma anion gap determinationon 95-19-6455Hjuwy gap [Moles/Vol]13.4 mmol/LFMarion HospitalBasophils Auto (Bld) [#/Vol]on 63-03-7150Crcteedpu (Bld) [#/Vol]0.1 10 3/uL0.0-0.1FMarion HospitalBasophils/100 WBC Auto (Bld)on 74-16-6956Xwdkawawe/100 WBC (Bld)0.4 %0.2-2.0[facility] CenterEosinophils/100 WBC Auto (Bld)on 19-20-5446Zrvvgtftpjt/100 WBC (Bld)1.0 % 0.9-7.0[facility] Medical CenterErythrocyte distribution width Auto (RBC) [Ratio]on 40-08-1066Ycarakfgaxv distribution width (RBC) [Ratio]16.4 %High 11.0-15.0[facility] CenterEstimated glomerular filtration rate (GFR) non- Americanon 02-24-8428KAS/1.73 sq M.predicted among non-blacks MDRD (S/P/Bld) [Vol rate/Area]37 mL/min/{1.73_m2}Low>=60[facility] Medical CenterGlobulin Calc (S) [Mass/Vol]on 44-52-9323Wdkiahai (S) [Mass/Vol] 3.3 g/dLSt. Mary'S Medical CenterHematocrit Auto (Bld) [Volume fraction] on 21-52-0184Kshihljohb (Bld) [Volume fraction]23.6 %Low42.0-54.0[facility] Medical CenterComment on above:RESULTS CALLED TO JOHNNY BOUDREAUX RN Hemoglobin [Mass/volume] in Bloodon 81-96-2951Ogclkevmvs (Bld) [Mass/Vol]7.1 g/dLLow14.0-18.0[facility] CenterLaboratory - Chemistry and Chemistry - challengeon 38-58-3008Dywayrf [Mass/Vol]2.2 g/dLLow3.4-5.0[facility] CenterALP [Catalytic activity/Vol]127 U/UCuvx89-726RwwnirpbqSt. Mary'S Medical CenterALT [Catalytic activity/Vol]13 U/WYxg65-50EznhebjjpSt. Mary'S Medical CenterAST [Catalytic activity/Vol]10 U/LZmv07-24IswydairrSt. Mary'S Medical CenterBilirubin [Mass/Vol]0.2 mg/dL0.2-1.0[facility] CenterCalcium [Mass/Vol]7.4 mg/dLLow8.5-10.1FMarion HospitalChloride [Moles/Vol]103 mmol/L31-479HlrdssnxfSt. Mary'S Medical CenterCO2 [Moles/Vol]23.4 mmol/L21.0-32.0[facility] CenterCreatinine [Mass/Vol]1.88 mg/dLHigh0.70-1.30[facility] CenterGFR/1.73 sq M.predicted MDRD (S/P/Bld) [Vol rate/Area]45 mL/min/{1.73_m2}Low>=60[facility] CenterGlucose [Mass/Vol]357 mg/wKZfga87-863FqwugwquuSt. Mary'S Medical CenterMagnesium [Mass/Vol]1.5 mg/dLLow1.8-2.4FMarion HospitalPotassium [Moles/Vol]4.4 mmol/L3.5-5.1FMarion Hospital Protein [Mass/Vol]5.5 g/dLLow6.4-8.2FTriHealth Good Samaritan Hospitalodium [Moles/Vol]136 mmol/E856-899TeyjzxunySt. Mary'S Medical CenterUrea nitrogen [Mass/Vol]30.0 mg/dLHigh7.0-18.0St[facility] Medical CenterUrea nitrogen/Creatinine [Mass ratio]16.0 mg/mgSt. Mary'S Medical Center Laboratory - Hematology and Cell countson 62-16-1294Ntgryqoe granulocytes/100 WBC (Bld)0.9 %High0.0-0.5FMarion HospitalLeukocytes [#/volume] corrected for nucleated erythrocytes in Blood by Automated counon 50-33-7188BLB corrected for nucl RBC Auto (Bld) [#/Vol]13.3 10 3/uLHigh4.0-11.0[facility] Medical CenterLymphocytes Auto (Bld) [#/Vol]on 05-28-7624Wkawazityog (Bld) [#/Vol]2.1 10 3/uL1.2-3.8St. [facility] Medical CenterLymphocytes/100 WBC Auto (Bld)on 46-03-0901Ngxsttaosvg/100 WBC (Bld)15.7 %Low20.5-60.0[facility] HospitalH Auto (RBC) [Entitic mass]on 73-70-9615KZY (RBC) [Entitic mass]25.0 pgLow25.9-34.0[facility] Medical CenterMCHC Auto (RBC) [Mass/Vol]on 29-40-2733LXFH (RBC) [Mass/Vol]30.1 g/dL29.9-35.2FMarion HospitalMCV Auto (RBC) [Entitic vol]on 22-11-4333VPP (RBC) [Entitic vol]83.1 fL80.0-94.0[facility] Medical CenterMonocytes Auto (Bld) [#/Vol]on 73-69-8817Txjnwrzqh (Bld) [#/Vol]0.6 10 3/uL0.3-0.8St[facility] Medical CenterMonocytes/100 WBC Auto (Bld)on 24-10-5951Cxbkstrdz/100 WBC (Bld)4.7 %1.7-12.0[facility] Medical CenterNeutrophils Auto (Bld) [#/Vol]on 99-46-1989Mdutnlbjnel (Bld) [#/Vol]10.3 10 3/uLHigh1.4-6.5FMarion HospitalNeutrophils/100 WBC Auto (Bld)on 12-23-2023 Neutrophils/100 WBC (Bld)77.3 %High43.0-75.0[facility] CenterNo Panel Informationon 24-69-0332Pwqrtdivlws # (Auto)0.1 10 3/uL0.0-0.7FMarion HospitalImmature Granulocyte # (Auto)0.12 10 3/uLHigh0.00-0.03 [facility]1.5 mg/dLLow1.8-2.4FMarion Hospital2.2 g/dLLow3.4-5.0[facility]0.1 10 3/uL0.0-0.7 [facility]127 U/XPodt98-025GmpgwlzazSt. Mary'S Medical Center13 U/IVhb14-84QqjihtssfSt. Mary'S Medical Center10 U/MPhp21-43NbcvlynfsSt. Mary'S Medical Center16.0[facility]0.12 10 3/uLHigh 0.00-0.03[facility]30.0 mg/dLHigh7.0-18.0[facility]0.9 %High0.0-0.5FMarion Hospital7.4 mg/dLLow8.5-10.1FMarion Hospital103 mmol/C92-526BpamhmkpgSt. Mary'S Medical Center23.4 mmol/L21.0-32.0[facility]1.88 mg/dLHigh0.70-1.30[facility]45Low>=60[facility]357 mg/kRBjnu11-256SrjfrblasSt. Mary'S Medical Center4.4 mmol/L 3.5-5.1FMarion Hospital136 mmol/N353-799ClqthnskgSt. Mary'S Medical Center0.2 mg/dL0.2-1.0[facility]5.5 g/dLLow 6.4-8.2FMarion HospitalPlatelet mean volume Auto (Bld) [Entitic vol]on 24-11-6065Rkcxdayh mean volume (Bld) [Entitic vol]10.3 fL9.5-13.5 [facility] CenterPlatelets Auto (Bld) [#/Vol]on 12-23-2023 Platelets (Bld) [#/Vol]373 10 3/gJ935-872IwfhppvinSt. Mary'S Medical CenterRBC Auto (Bld) [#/Vol]on 51-81-5571KQU (Bld) [#/Vol]2.84 10 6/uLLow4.70-6.10 [facility] Centererum or plasma albumin/globulin mass ratioon 24-93-3991Dkwimyf/Globulin [Mass ratio]0.7 {ratio}[facility] Centererum or plasma anion gap determinationon 78-48-4018Lavwo gap [Moles/Vol] 14.0 mmol/LFMarion HospitalBasophils Auto (Bld) [#/Vol]on 44-91-7405Vmhegcvns (Bld) [#/Vol]0.0 10 3/uL0.0-0.1FMarion HospitalBasophils/100 WBC Auto (Bld)on 99-15-0655Pebhgoncu/100 WBC (Bld)0.2 % 0.2-2.0[facility] CenterEosinophils/100 WBC Auto (Bld)on 65-09-3358Dzhdlmdzzbj/100 WBC (Bld)0.1 %Low0.9-7.0[facility] CenterErythrocyte distribution width Auto (RBC) [Ratio]on 19-31-1345Dbbmkvjkrkl distribution width (RBC) [Ratio]16.5 %High11.0-15.0[facility] CenterEstimated glomerular filtration rate (GFR) non- Americanon 87-76-4131NIF/1.73 sq M.predicted among non-blacks MDRD (S/P/Bld) [Vol rate/Area]23 mL/min/{1.73_m2}Low>=60[facility] CenterGlobulin Calc (S) [Mass/Vol]on 48-67-9620Hpzkyrmx (S) [Mass/Vol]3.8 g/dLSt. Mary'S Medical CenterHematocrit Auto (Bld) [Volume fraction]on 12-22-2023 Hematocrit (Bld) [Volume fraction]25.4 %Low42.0-54.0[facility] CenterHemoglobin [Mass/volume] in Bloodon 89-53-2884Nyvaizchpr (Bld) [Mass/Vol] 7.6 g/dLLow14.0-18.0[facility] CenterLaboratory - Chemistry and Chemistry - challengeon 70-16-0199Kyosxruuq Ql (U)NegativeNEGATIVESt. Mary'S Medical CenterGlucose (U) [Mass/Vol]mg/dLAbnormalNEGATIVESt. Mary'S Medical CenterKetones Ql (U)NegativeNEGATIVESt. Mary'S Medical CenterpH (U)6.5 [pH]5.0-9.0[facility] Centerpecific gravity (U) [Rel density]<=1.010Doxywizy5.005-1.025[facility] Urobilinogen Qn (U)0.2 {Brendan'U}/dL0.2-1.0[facility] Calcium [Mass/Vol]7.2 mg/dLLow8.5-10.1FMarion HospitalChloride [Moles/Vol]95 mmol/FZrx37-012VhswicmvvSt. Mary'S Medical CenterCO2 [Moles/Vol] 21.7 mmol/L21.0-32.0[facility] CenterCreatinine [Mass/Vol]2.80 mg/dLHigh0.70-1.30[facility] CenterGFR/1.73 sq M.predicted MDRD (S/P/Bld) [Vol rate/Area]28 mL/min/{1.73_m2}Low>=60St[facility] CenterGlucose [Mass/Vol]683 mg/zBZhrz86-908QfkobexhjSt. [facility] Comment on above:RESULTS CALLED TO Sai Pickard, RNPotassium [Moles/Vol] 4.8 mmol/L3.5-5.1FTriHealth Good Samaritan Hospitalodium [Moles/Vol]129 mmol/L Gpy494-600LhbdkntfgSt. Mary'S Medical CenterUrea nitrogen [Mass/Vol]27.0 mg/dL High7.0-18.0[facility] CenterUrea nitrogen/Creatinine [Mass ratio]9.6 mg/mgSt. Mary'S Medical CenterAlbumin [Mass/Vol]2.3 g/dLLow 3.4-5.0[facility] CenterALP [Catalytic activity/Vol]143 U/LHigh 46-116[facility] CenterALT [Catalytic activity/Vol]15 U/LLow 16-63[facility] CenterAST [Catalytic activity/Vol]9 U/FRpv38-74 [facility] CenterBilirubin [Mass/Vol]0.2 mg/dL0.2-1.0[facility] CenterMagnesium [Mass/Vol]0.9 mg/dLLow1.8-2.4FMarion HospitalComment on above:RESULTS CALLED TO ANY SANTIAGO RNNatriuretic peptide B (Bld) [Mass/Vol]322.0 pg/mL<=900.0[facility] Protein [Mass/Vol]6.1 g/dLLow6.4-8.2FMarion HospitalLaboratory - Hematology and Cell countson 28-86-9449Dvafxegd granulocytes/100 WBC (Bld)0.9 %High0.0-0.5FMarion HospitalLaboratory - Specimen informationon 90-13-9483Zqqojkushu (U)CLEARCLEARFMarion HospitalColor (U)LT. YELLOWYELLOWSt. Mary'S Medical CenterLaboratory - Urinalysison 86-90-6983Tntvmiavk esterase Test strip Ql (U)NegativeNEGATIVESt. Mary'S Medical CenterMucus Ql (Urine sed)NONE SEENNONE SEENSt. Mary'S Medical CenterNitrite Ql (U)NegativeNEGATIVESt. Mary'S Medical CenterProtein Ql (U)NegativeNEG/TRACESt. Mary'S Medical CenterLeukocytes [#/volume] corrected for nucleated erythrocytes in Blood by Automated counon 08-81-0784XUU corrected for nucl RBC Auto (Bld) [#/Vol]11.7 10 3/uLHigh4.0-11.0[facility] CenterLymphocytes Auto (Bld) [#/Vol]on 04-60-5049Kwmoflncwys (Bld) [#/Vol]0.9 10 3/uLLow1.2-3.8[facility] Lymphocytes/100 WBC Auto (Bld)on 08-14-3793Ihariktiesr/100 WBC (Bld)7.6 %Low 20.5-60.0[facility] HospitalH Auto (RBC) [Entitic mass]on 87-91-6570GQA (RBC) [Entitic mass]24.4 pgLow25.9-34.0[facility] CenterMCHC Auto (RBC) [Mass/Vol]on 43-29-5026VWQQ (RBC) [Mass/Vol]29.9 g/dL 29.9-35.2FMarion HospitalMCV Auto (RBC) [Entitic vol]on 98-66-0009XFQ (RBC) [Entitic vol]81.7 fL80.0-94.0[facility] CenterMonocytes Auto (Bld) [#/Vol]on 88-55-9439Albuiwhba (Bld) [#/Vol]0.2 10 3/uLLow0.3-0.8[facility] CenterMonocytes/100 WBC Auto (Bld)on 06-14-9357Cetyoxdgu/100 WBC (Bld)1.4 %Low1.7-12.0[facility] CenterNeutrophils Auto (Bld) [#/Vol]on 65-42-5665Bnpmdcmdowm (Bld) [#/Vol]10.5 10 3/uLHigh1.4-6.5FMarion HospitalNeutrophils/100 WBC Auto (Bld)on 28-84-2768Itxjvlwlnpt/100 WBC (Bld)89.8 %High43.0-75.0[facility] CenterNo Panel Informationon 56-22-9230Bczha BacteriaNONE SEEN #/HPF NONE SEENSt. Mary'S Medical CenterUrine Occult BloodNegativeNEGATIVE St[facility] Medical CenterUrine Other CastsNONE SEEN #/LPFNONE SEEN [facility] CenterUrine Other CrystalsNone Seen #/HPFNone Seen [facility] CenterUrine RBC0-2 #/HPF0-2FMarion HospitalUrine Squamous Epithelial CellsNONE SEEN #/LPFNONE/[facility] HospitalUrine WBC0-2 #/HPFAbnormalNONE [facility]NONE SEEN #/LPFNONE/[facility] HospitalNone Seen #/HPF NONE [facility] HospitalNegativeNEG/TRACESt. Mary'S Medical CenterCLEARCLEARSt. Mary'S Medical CenterLT. YELLOWYELLOW [facility]>=1000 mg/dLAbnormalNEGATIVESt. Mary'S Medical CenterNONE SEENNONE [facility]6.55.0-9.0 [facility]0-2 #/HPFAbnormalNONE [facility]<=1.286Nfdzoeud1.005-1.025[facility]0.2 EU/dL0.2-1.0[facility]9.6FMarion Hospital27.0 mg/dLHigh7.0-18.0[facility]7.2 mg/dLLow 8.5-10.1FMarion Hospital95 mmol/XFfw79-355BqzyovjhcSt. Mary'S Medical Center21.7 mmol/L21.0-32.0[facility]2.80 mg/dL High0.70-1.30[facility]28Low>=60[facility]683 mg/kUAbkq38-513VukyhstmbSt. Mary'S Medical Center4.8 mmol/L 3.5-5.1FMarion Hospital129 mmol/TGyd138-450XamadivkoSt. Mary'S Medical CenterEosinophils # (Auto)0.0 10 3/uL0.0-0.7FMarion HospitalImmature Granulocyte # (Auto)0.11 10 3/uLHigh0.00-0.03[facility] CenterPhosphorus Level2.7 mg/dL2.6-4.7FMarion Hospital 322.0 pg/mL<=900.0[facility]0.9 mg/dLLow1.8-2.4FMarion Hospital2.7 mg/dL2.6-4.7FMarion Hospital0.0 10 3/uL0.0-0.7FMarion Hospital2.3 g/dLLow3.4-5.0[facility]143 U/IAeyz68-801IvivpfgauSt. Mary'S Medical Center15 U/UIug20-67 [facility]9 U/WTbu92-12MihkgktxuSt. Mary'S Medical Center 0.11 10 3/uLHigh0.00-0.03[facility]0.9 %High0.0-0.5 [facility]0.2 mg/dL0.2-1.0[facility]6.1 g/dLLow6.4-8.2FMarion HospitalPlatelet mean volume Auto (Bld) [Entitic vol]on 00-37-0980Syurodtm mean volume (Bld) [Entitic vol] 10.5 fL9.5-13.5FMarion HospitalPlatelets Auto (Bld) [#/Vol]on 37-46-2719Kocnxatep (Bld) [#/Vol]400 10 3/hN145-758OooqfujprSt. Mary'S Medical CenterRBC Auto (Bld) [#/Vol]on 71-83-0417DHV (Bld) [#/Vol]3.11 10 6/uLLow 4.70-6.10[facility] Centererum or plasma albumin/globulin mass ratioon 37-17-5639Oyfguub/Globulin [Mass ratio]0.6 {ratio}[facility] Centererum or plasma anion gap determinationon 26-09-4521Tdhcp gap [Moles/Vol]17.1 mmol/LFMarion HospitalActivated partial thromboplastin time (aPTT) in platelet poor plasma by coagulation aon 12-21-2023 aPTT Coag (PPP) [Time]26.6 s22.3-36.2FMarion HospitalBasophils Auto (Bld) [#/Vol]on 64-15-1819Qbschwfjl (Bld) [#/Vol]0.1 10 3/uL0.0-0.1 [facility] CenterBasophils/100 WBC Auto (Bld)on 12-21-2023 Basophils/100 WBC (Bld)0.8 %0.2-2.0[facility] Eosinophils/100 WBC Auto (Bld)on 33-84-1661Hboavhkkkqe/100 WBC (Bld)4.2 %0.9-7.0 [facility] CenterErythrocyte distribution width Auto (RBC) [Ratio]on 53-06-7522Flntqdipyao distribution width (RBC) [Ratio]16.6 %High 11.0-15.0[facility] CenterEstimated glomerular filtration rate (GFR) non- Americanon 89-77-2999TON/1.73 sq M.predicted among non-blacks MDRD (S/P/Bld) [Vol rate/Area]23 mL/min/{1.73_m2}Low>=60[facility] CenterGlobulin Calc (S) [Mass/Vol]on 87-20-8645Mnstbuzw (S) [Mass/Vol] 4.0 g/dLSt. Mary'S Medical CenterHematocrit Auto (Bld) [Volume fraction] on 68-11-8460Cogvhkuyin (Bld) [Volume fraction]28.2 %Low42.0-54.0[facility] CenterHemoglobin [Mass/volume] in Bloodon 38-47-9498Wcwzmwoxtw (Bld) [Mass/Vol]8.6 g/dLLow14.0-18.0[facility] CenterINR in Platelet poor plasma by Coagulation assayon 65-35-7062IPS Coag (PPP) [Relative time]1.05 {INR}[facility] CenterComment on above:DESIRED INR:2.0-3.0 CONDITIONS NOT LISTED BELOW2.5-3.5 FOR PROSTHETIC HEART VALVE REPLACEMENT2.5-3.5 RECURRENT THROMBOSISLaboratory - Chemistry and Chemistry - challengeon 36-35-8657Kynqhjp [Mass/Vol]2.8 g/dLLow3.4-5.0[facility] CenterALP [Catalytic activity/Vol]132 U/NUafq88-008FmuvpwzfuSt. Mary'S Medical CenterALT [Catalytic activity/Vol]13 U/YSoh07-15UrlrcltkaSt. Mary'S Medical CenterAST [Catalytic activity/Vol]10 U/QLea46-81DohsdnzntSt. Mary'S Medical CenterBilirubin [Mass/Vol]0.3 mg/dL0.2-1.0[facility] CenterCalcium [Mass/Vol]7.8 mg/dLLow8.5-10.1FMarion Hospital Chloride [Moles/Vol]99 mmol/N70-280WbnnpkcisSt. Mary'S Medical CenterCO2 [Moles/Vol]29.9 mmol/L21.0-32.0[facility] CenterCreatinine [Mass/Vol]2.79 mg/dLHigh0.70-1.30[facility] CenterGFR/1.73 sq M.predicted MDRD (S/P/Bld) [Vol rate/Area]29 mL/min/{1.73_m2}Low>=60[facility] CenterGlucose [Mass/Vol]56 mg/cEGby29-027HiqdkaqevSt. Mary'S Medical CenterLactate [Moles/Vol]1.6 mmol/L0.4-2.0[facility] CenterNatriuretic peptide B (Bld) [Mass/Vol]222.0 pg/mL<=900.0[facility] CenterPotassium [Moles/Vol]3.3 mmol/LLow3.5-5.1FMarion HospitalProtein [Mass/Vol]6.8 g/dL6.4-8.2FMarion Hospital Sodium [Moles/Vol]138 mmol/J342-722DusileputSt. Mary'S Medical CenterUrea nitrogen [Mass/Vol]29.0 mg/dLHigh7.0-18.0[facility] CenterUrea nitrogen/Creatinine [Mass ratio]10.4 mg/mgSt. Mary'S Medical Center Laboratory - Hematology and Cell countson 63-51-7552Zxeutkrc granulocytes/100 WBC (Bld)1.0 %High0.0-0.5FMarion HospitalLeukocytes [#/volume] corrected for nucleated erythrocytes in Blood by Automated counon 65-93-0938RNZ corrected for nucl RBC Auto (Bld) [#/Vol]12.6 10 3/uLHigh4.0-11.0[facility] CenterLymphocytes Auto (Bld) [#/Vol]on 62-10-9040Nmeyxraowix (Bld) [#/Vol]3.4 10 3/uL1.2-3.8[facility] CenterLymphocytes/100 WBC Auto (Bld)on 16-68-3193Tnraivpkmgq/100 WBC (Bld)26.6 %20.5-60.0[facility] HospitalH Auto (RBC) [Entitic mass]on 79-84-4545OVR (RBC) [Entitic mass]24.7 pgLow25.9-34.0[facility] CenterMCHC Auto (RBC) [Mass/Vol]on 05-78-7631AQTS (RBC) [Mass/Vol]30.5 g/dL29.9-35.2FSt. Rita's HospitalV Auto (RBC) [Entitic vol]on 06-13-2668IAQ (RBC) [Entitic vol]81.0 fL80.0-94.0[facility] CenterMonocytes Auto (Bld) [#/Vol]on 28-74-4792Ajwqcsiyf (Bld) [#/Vol]0.6 10 3/uL0.3-0.8[facility] CenterMonocytes/100 WBC Auto (Bld)on 13-94-1824Cqqacdkvz/100 WBC (Bld)4.9 %1.7-12.0[facility] CenterNeutrophils Auto (Bld) [#/Vol]on 44-33-3258Czxaiuunlgl (Bld) [#/Vol]7.9 10 3/uLHigh1.4-6.5FMarion HospitalNeutrophils/100 WBC Auto (Bld)on 12-21-2023 Neutrophils/100 WBC (Bld)62.5 %43.0-75.0[facility] CenterNo Panel Informationon 07-62-7952Lghatxps I High Sensitivity5.1 pg/mL4.0-76.1 [facility] CenterComment on above:CUT-OFF POINTS HAVE BEEN ESTABLISHED BASED ON THE FOURTHUNIVERSAL DEFINITION OF MYOCARDIAL INFARCTION. THE UPPERREFERENCE LIMIT (URL) OF TROPONIN, DEFINED THE 99THPERCENTILE OF cTnI DISTRIBUTION IN A REFERENCE POPULATION,HAS BEEN CONFIRMED THE DECISION THRESHOLD FOR MIDIAGNOSIS.99TH PERCENTILE = 76.2 PG/MLNOTE: HIGH-SENSITIVITY TROPONIN ASSAY IS NOT INTENDED TO BEUSED IN ISOLATION BUT SHOULD BE INTERPRETED IN CONJUNCTIONWITH OTHER DIAGNOSTIC AND CLINICAL INFORMATION.5.1 pg/mL4.0-76.1 [facility] CenterEosinophils # (Auto)0.5 10 3/uL0.0-0.7FMarion HospitalImmature Granulocyte # (Auto)0.13 10 3/uLHigh0.00-0.03 [facility] CenterVenous Blood Partial Pressure CO239.8 mm[Hg]Low 40.0-52.0[facility] CenterVenous Blood pH7.324Rzzf6.330-7.430 [facility]222.0 pg/mL<=900.0[facility]1.6 mmol/L0.4-2.0[facility]39.8 mm[Hg]Low40.0-52.0 [facility]7.226Obmi4.330-7.430[facility]2.8 g/dLLow3.4-5.0[facility]0.5 10 3/uL0.0-0.7 [facility]132 U/PFiev89-531QgvrtobmrSt. Mary'S Medical Center13 U/JQfs40-62AvdgpnmfsSt. [facility]'S Medical Center10 U/ZGtd90-21LnbpzxzbjSt. Mary'S Medical Center10.4FMarion Hospital0.13 10 3/uLHigh 0.00-0.03[facility]29.0 mg/dLHigh7.0-18.0[facility]1.0 %High0.0-0.5FMarion Hospital7.8 mg/dLLow8.5-10.1FMarion Hospital99 mmol/K07-308RrzujxwshSt. Mary'S Medical Center29.9 mmol/L21.0-32.0[facility]2.79 mg/dLHigh0.70-1.30[facility]29Low>=60[facility]56 mg/mZOft23-038LcwmaucneSt. Mary'S Medical Center3.3 mmol/LLow 3.5-5.1FMarion Hospital138 mmol/E416-543PwdrprxzsSt. Mary'S Medical Center0.3 mg/dL0.2-1.0[facility]6.8 g/dL6.4-8.2 [facility] CenterNo Panel InformationOrdered By: Марина Flores on 68-70-9047Hqkcj Culture 2FMarion HospitalBlood Culture [address] [facility] CenterPlatelet mean volume Auto (Bld) [Entitic vol]on 35-03-5013Admmglzs mean volume (Bld) [Entitic vol]10.2 fL9.5-13.5FMarion HospitalPlatelets Auto (Bld) [#/Vol]on 28-30-6973Lwfbcykml (Bld) [#/Vol]502 10 3/gFUhyv079-621UtbyswpzrSt. Mary'S Medical CenterProthrombin time (PT)on 97-94-5807EU Coag (PPP) [Time]11.1 s9.0-11.6FMarion HospitalRBC Auto (Bld) [#/Vol]on 21-87-9567BZE (Bld) [#/Vol]3.48 10 6/uLLow 4.70-6.10[facility] Centererum or plasma albumin/globulin mass ratioon 94-24-7001Jzrqrmm/Globulin [Mass ratio]0.7 {ratio}[facility] Centererum or plasma anion gap determinationon 56-57-6290Pdeyf gap [Moles/Vol]12.4 mmol/LFMarion HospitalLon 25-80-7791VDeucwrDwc [facility] Physician GroupBasophils Auto (Bld) [#/Vol]on 76-81-5046Jahbkzhfk (Bld) [#/Vol]0.1 10 3/uL0.0-0.1FMarion HospitalBasophils/100 WBC Auto (Bld)on 08-99-5491Tbmqmfyip/100 WBC (Bld)0.9 %0.2-2.0[facility] CenterEosinophils/100 WBC Auto (Bld)on 60-46-9391Pjzymfstkfb/100 WBC (Bld)2.6 %0.9-7.0[facility] CenterErythrocyte distribution width Auto (RBC) [Ratio]on 10-85-8988Kdmfewiypzm distribution width (RBC) [Ratio]17.7 %High11.0-15.0[facility] CenterEstimated glomerular filtration rate (GFR) non- Americanon 21-37-9265SIW/1.73 sq M.predicted among non- blacks MDRD (S/P/Bld) [Vol rate/Area]38 mL/min/{1.73_m2}Low>=60[facility] CenterGlobulin Calc (S) [Mass/Vol]on 79-66-4403Nmdpgjqv (S) [Mass/Vol]3.9 g/dLSt. Mary'S Medical CenterHematocrit Auto (Bld) [Volume fraction]on 97-23-1529Zflzimnikf (Bld) [Volume fraction]34.2 %Low42.0-54.0 [facility] CenterHemoglobin [Mass/volume] in Bloodon 12-10-2023 Hemoglobin (Bld) [Mass/Vol]10.5 g/dLLow14.0-18.0[facility] CenterLaboratory - Chemistry and Chemistry - challengeon 15-17-2865Hwqsleh [Mass/Vol]2.8 g/dLLow3.4-5.0[facility] CenterALP [Catalytic activity/Vol]119 U/JKbco22-502YtaukbkikSt. Mary'S Medical CenterALT [Catalytic activity/Vol]11 U/WSwn59-30ObeqdmtonSt. Mary'S Medical CenterAST [Catalytic activity/Vol]10 U/SLnn06-98GhmvyglgkSt. Mary'S Medical CenterBilirubin [Mass/Vol] 0.4 mg/dL0.2-1.0[facility] CenterCalcium [Mass/Vol]8.4 mg/dLLow 8.5-10.1FMarion HospitalChloride [Moles/Vol]101 mmol/L98-107 [facility] CenterCO2 [Moles/Vol]27.0 mmol/L21.0-32.0[facility] CenterCreatinine [Mass/Vol]1.83 mg/dLHigh0.70-1.30[facility] CenterGFR/1.73 sq M.predicted MDRD (S/P/Bld) [Vol rate/Area]46 mL/min/{1.73_m2}Low>=60[facility] CenterGlucose [Mass/Vol]113 mg/fALzru79-268PbmediizeSt. Mary'S Medical CenterPotassium [Moles/Vol]3.3 mmol/L Low3.5-5.1FMarion HospitalProtein [Mass/Vol]6.7 g/dL6.4-8.2 [facility] Centerodium [Moles/Vol]134 mmol/TCsu189-359EcxfofoaySt. Mary'S Medical CenterUrea nitrogen [Mass/Vol]21.0 mg/dLHigh7.0-18.0[facility] CenterUrea nitrogen/Creatinine [Mass ratio]11.5 mg/mgSt. Mary'S Medical CenterLaboratory - Hematology and Cell countson 12-10-2023 Immature granulocytes/100 WBC (Bld)0.3 %0.0-0.5FMarion Hospital Leukocytes [#/volume] corrected for nucleated erythrocytes in Blood by Automated counon 41-86-6889GRE corrected for nucl RBC Auto (Bld) [#/Vol]9.8 10 3/uL 4.0-11.0[facility] CenterLymphocytes Auto (Bld) [#/Vol]on 17-66-3899Nmxkswfhqjh (Bld) [#/Vol]1.5 10 3/uL1.2-3.8[facility] CenterLymphocytes/100 WBC Auto (Bld)on 32-12-0132Wwermzjfjqv/100 WBC (Bld)15.8 % Low20.5-60.0[facility] CenterMCH Auto (RBC) [Entitic mass]on 76-93-8867AHR (RBC) [Entitic mass]25.1 pgLow25.9-34.0[facility] CenterMCHC Auto (RBC) [Mass/Vol]on 20-26-8404OGOY (RBC) [Mass/Vol]30.7 g/dL 29.9-35.2FMarion HospitalMCV Auto (RBC) [Entitic vol]on 79-76-0282DEB (RBC) [Entitic vol]81.6 fL80.0-94.0[facility] CenterMonocytes Auto (Bld) [#/Vol]on 03-67-1873Fnmzjpnoe (Bld) [#/Vol]1.2 10 3/uLHigh0.3-0.8[facility] CenterMonocytes/100 WBC Auto (Bld)on 59-61-7403Phbcdtxbz/100 WBC (Bld)11.9 %1.7-12.0[facility] Neutrophils Auto (Bld) [#/Vol]on 75-58-7444Tlujysceaut (Bld) [#/Vol]6.7 10 3/uL High1.4-6.5FMarion HospitalNeutrophils/100 WBC Auto (Bld)on 96-80-5797Xwaysobelmq/100 WBC (Bld)68.5 %43.0-75.0[facility] CenterNo Panel Informationon 64-48-9721Bhntyjsrltr # (Auto)0.3 10 3/uL0.0-0.7 [facility] Medical CenterImmature Granulocyte # (Auto)0.03 10 3/uL 0.00-0.03[facility]2.8 g/dLLow3.4-5.0[facility]0.3 10 3/uL0.0-0.7FMarion Hospital119 U/LHigh 46-116[facility]11 U/OHmf82-31MwnhfbdppSt. Mary'S Medical Center10 U/PFym88-77IvswovnaaSt. Mary'S Medical Center11.5FMarion Hospital0.03 10 3/uL0.00-0.03[facility]21.0 mg/dL High7.0-18.0[facility]0.3 %0.0-0.5FMar[facility] Hospital8.4 mg/dLLow8.5-10.1FMarion Hospital101 mmol/L 98-107[facility]27.0 mmol/L21.0-32.0[facility]1.83 mg/dLHigh0.70-1.30[facility]46Low>=60 [facility]113 mg/rDPhpa64-516LbepileouSt. Mary'S Medical Center3.3 mmol/LLow3.5-5.1FMarion Hospital134 mmol/EUwa714-071 [facility]0.4 mg/dL0.2-1.0[facility]6.7 g/dL6.4-8.2FMarion HospitalPlatelet mean volume Auto (Bld) [Entitic vol]on 08-39-8735Quoxhrgn mean volume (Bld) [Entitic vol]10.2 fL 9.5-13.5FMarion HospitalPlatelets Auto (Bld) [#/Vol]on 14-82-9942Iiresheqj (Bld) [#/Vol]240 10 3/xW850-380MdenqrezpSt. Mary'S Medical CenterRBC Auto (Bld) [#/Vol]on 41-41-6975GOX (Bld) [#/Vol]4.19 10 6/uLLow 4.70-6.10[facility] Centererum or plasma albumin/globulin mass ratioon 78-72-1467Mfjsbte/Globulin [Mass ratio]0.7 {ratio}[facility] Centererum or plasma anion gap determinationon 80-94-5992Rlybe gap [Moles/Vol]9.3 mmol/LFMarion HospitalBasophils Auto (Bld) [#/Vol]on 24-70-4314Qlbbgamuv (Bld) [#/Vol]0.1 10 3/uL0.0-0.1FMarion HospitalBasophils/100 WBC Auto (Bld)on 93-48-1785Pkwbipids/100 WBC (Bld) 1.0 %0.2-2.0[facility] CenterEosinophils/100 WBC Auto (Bld)on 53-58-7434Nnsbdpeyeyi/100 WBC (Bld)1.6 %0.9-7.0[facility] Erythrocyte distribution width Auto (RBC) [Ratio]on 81-13-7223Qenrogamwpa distribution width (RBC) [Ratio]17.7 %High11.0-15.0[facility] CenterEstimated glomerular filtration rate (GFR) non- Americanon 69-94-6928ZMI/1.73 sq M.predicted among non-blacks MDRD (S/P/Bld) [Vol rate/Area]31 mL/min/{1.73_m2}Low>=60[facility] CenterFibrin D- dimer [Presence] in Platelet poor plasma by Latex agglutinationon 12-09-2023 Fibrin D-dimer LA Ql (PPP)3.76 mg/L FEUHigh<=0.59St. [facility] CenterComment on above:RESULTS CALLED TO in D-Dimer concentration [...] therapy, stress, and generalizedhospitalization.Globulin Calc (S) [Mass/Vol]on 00-74-6418Lasrajrh (S) [Mass/Vol]4.6 g/dLSt. Mary'S Medical CenterHematocrit Auto (Bld) [Volume fraction]on 08-33-4858Tolyakyrgq (Bld) [Volume fraction]39.2 %Low 42.0-54.0[facility] CenterHemoglobin [Mass/volume] in Bloodon 24-61-3605Eczhtajivc (Bld) [Mass/Vol]12.2 g/dLLow14.0-18.0[facility] CenterLaboratory - Chemistry and Chemistry - challengeon 12-09-2023 Lactate [Moles/Vol]2.9 mmol/LHigh0.4-2.0[facility] CenterComment on above:RESULTS CALLED TO MICKY SHARPE RNBilirubin Ql (U)NegativeNEGATIVE [facility] CenterGlucose (U) [Mass/Vol]500 mg/dLAbnormalNEGATIVE [facility] CenterKetones Ql (U)NegativeNEGATIVESt. Mary'S Medical CenterpH (U)6.5 [pH]5.0-9.0[facility] Specific gravity (U) [Rel density]1.0201.005-1.025[facility] CenterUrobilinogen Qn (U)0.2 {Brendan'U}/dL0.2-1.0[facility] CenterAlbumin [Mass/Vol]3.5 g/dL3.4-5.0[facility] CenterALP [Catalytic activity/Vol]141 U/CBwou44-956ZqfxifqbnSt. Mary'S Medical CenterALT [Catalytic activity/Vol]13 U/HVls75-56OougydxzhSt. Mary'S Medical CenterAST [Catalytic activity/Vol]8 U/FQtj44-03NgmtqbduxSt. Mary'S Medical CenterBilirubin [Mass/Vol]0.7 mg/dL0.2-1.0[facility] CenterCalcium [Mass/Vol]9.6 mg/dL8.5-10.1FMarion HospitalChloride [Moles/Vol]99 mmol/L 98-107[facility] CenterCO2 [Moles/Vol]21.7 mmol/L21.0-32.0 [facility] CenterCreatinine [Mass/Vol]2.17 mg/dLHigh0.70-1.30 [facility] CenterGFR/1.73 sq M.predicted MDRD (S/P/Bld) [Vol rate/Area]38 mL/min/{1.73_m2}Low>=60St[facility] CenterGlucose [Mass/Vol]191 mg/wLUufn52-511LsgfulznkSt. Mary'S Medical CenterMagnesium [Mass/Vol]1.6 mg/dLLow1.8-2.4FMarion HospitalPotassium [Moles/Vol]3.8 mmol/L3.5-5.1FMarion HospitalProtein [Mass/Vol] 8.1 g/dL6.4-8.2FTriHealth Good Samaritan Hospitalodium [Moles/Vol]135 mmol/LLow 136-145St[facility] CenterUrea nitrogen [Mass/Vol]20.0 mg/dLHigh 7.0-18.0[facility] CenterUrea nitrogen/Creatinine [Mass ratio] 9.2 mg/mgSt. Mary'S Medical CenterLaboratory - Hematology and Cell countson 50-17-4421Ladkmaqs granulocytes/100 WBC (Bld)0.3 %0.0-0.5FMarion HospitalLaboratory - Microbiology and Antimicrobial susceptibilityon 68-63-6947DBTH-CoV-2 (COVID-19) RNA NELLY+probe Ql (Unsp spec) NegativeNEGATIVESt. Mary'S Medical CenterComment on above:This test has not been FDA [...] authorization is revoked sooner.Laboratory - Specimen informationon [id number] (U)CLEAR CLEARSt. Mary'S Medical CenterColor (U)YELLOWYELLOWSt. Mary'S Medical CenterLaboratory - Urinalysison 17-90-9335Wxflpyulg esterase Test strip Ql (U)NegativeNEGATIVESt. Mary'S Medical CenterNitrite Ql (U)Negative NEGATIVESt. Mary'S Medical CenterProtein Ql (U)NegativeNEG/TRACE [facility] CenterLeukocytes [#/volume] corrected for nucleated erythrocytes in Blood by Automated counon 91-88-9141NPM corrected for nucl RBC Auto (Bld) [#/Vol]9.3 10 3/uL4.0-11.0[facility] Lymphocytes Auto (Bld) [#/Vol]on 23-89-4073Rstqbrnnkzo (Bld) [#/Vol]1.5 10 3/uL 1.2-3.8[facility] CenterLymphocytes/100 WBC Auto (Bld)on 84-03-4196Miywutlvtgu/100 WBC (Bld)15.7 %Low20.5-60.0[facility] CenterMCH Auto (RBC) [Entitic mass]on 90-46-4807YJR (RBC) [Entitic mass]25.6 pg Low25.9-34.0[facility] CenterMCHC Auto (RBC) [Mass/Vol]on 83-22-0203DCET (RBC) [Mass/Vol]31.1 g/dL29.9-35.2FMarion HospitalMCV Auto (RBC) [Entitic vol]on 57-49-4597HMQ (RBC) [Entitic vol]82.4 fL 80.0-94.0[facility] CenterMonocytes Auto (Bld) [#/Vol]on 74-51-2182Grcymzwub (Bld) [#/Vol]0.9 10 3/uLHigh0.3-0.8[facility] CenterMonocytes/100 WBC Auto (Bld)on 14-18-4948Wrumkrcuq/100 WBC (Bld) 9.1 %1.7-12.0[facility] CenterNeutrophils Auto (Bld) [#/Vol]on 15-72-7015Wqcqcoqkgjz (Bld) [#/Vol]6.7 10 3/uLHigh1.4-6.5FMarion HospitalNeutrophils/100 WBC Auto (Bld)on 79-84-9139Wrvumtqvkuq/100 WBC (Bld)72.3 %43.0-75.0[facility] CenterNo Panel Informationon 42.9 mmol/LHigh0.4-2.0[facility] CenterUrine Microscopic ReviewNOSt. Mary'S Medical CenterUrine Occult BloodNegative NEGATIVESt. Mary'S Medical CenterNegativeNEG/TRACEHCA Florida West HospitalCLEARCLEARSt. Mary'S Medical CenterYELLOWYELLOWSt. Mary'S Medical Center500 mg/dLAbnormal NEGATIVESt. Mary'S Medical Center6.55.0-9.0[facility]1.0201.005-1.025[facility]0.2 EU/dL0.2-1.0[facility] CenterEosinophils # (Auto)0.2 10 3/uL0.0-0.7FMarion HospitalImmature Granulocyte # (Auto)0.03 10 3/uL0.00-0.03[facility] CenterTroponin I High Sensitivity8.7 pg/mL4.0-76.1FMarion HospitalComment on above:CUT-OFF POINTS HAVE BEEN ESTABLISHED [...] CONJUNCTIONWITH OTHER DIAGNOSTIC AND CLINICAL INFORMATION.8.7 pg/mL4.0-76.1 [facility]1.6 mg/dLLow1.8-2.4FMarion Hospital3.5 g/dL3.4-5.0[facility]0.2 10 3/uL0.0-0.7 [facility]141 U/ZAaru48-160DqiqvapnhSt. Mary'S Medical Center13 U/DEch17-47RyfygsexuSt. Mary'S Medical Center8 U/PIgt90-87EtlqdxajoSt. Mary'S Medical Center9.2FMarion [facility]0.03 10 3/uL0.00-0.03 [facility]20.0 mg/dLHigh7.0-18.0[facility]0.3 %0.0-0.5FMar[facility]9.6 mg/dL8.5-10.1 [facility]99 mmol/K84-451UbxbsjevhSt. Mary'S Medical Center21.7 mmol/L21.0-32.0[facility]2.17 mg/dLHigh 0.70-1.30[facility]38Low>=60[facility]191 mg/eLPrnt51-447JbcavcsrkSt. Mary'S Medical Center3.8 mmol/L3.5-5.1 [facility]135 mmol/HNid024-861CdthwtlzfSt. Mary'S Medical Center0.7 mg/dL0.2-1.0[facility]8.1 g/dL6.4-8.2FMarion HospitalPlatelet mean volume Auto (Bld) [Entitic vol]on 86-47-0470Apwjsqfc mean volume (Bld) [Entitic vol]10.7 fL9.5-13.5FMarion HospitalPlatelets Auto (Bld) [#/Vol]on 84-47-1388Chbtgliib (Bld) [#/Vol]294 10 3/yT204-954SebrhdtvfSt. Mary'S Medical CenterRBC Auto (Bld) [#/Vol] on 81-23-0401EFG (Bld) [#/Vol]4.76 10 6/uL4.70-6.10[facility] Centererum or plasma albumin/globulin mass ratioon 60-45-6149Yppkyyw/Globulin [Mass ratio]0.8 {ratio}[facility] Centererum or plasma anion gap determinationon 19-21-5334Vdqaa gap [Moles/Vol]18.1 mmol/LFMarion HospitalOutside Operativeon 63-36-6319Uqnamog Operative [id number]#1.00TIFTrinity Health SystemPhysician Orderon 75-30-8402Xtfpvrhvf Order [id number]#1.00TIFTrinity Health SystemBasophils Auto (Bld) [#/Vol]on 72-91-7422Zydyfvrbi (Bld) [#/Vol]0.1 10 3/uL0.0-0.1FMarion HospitalBasophils/100 WBC Auto (Bld)on 38-10-0490Lgwnvhnli/100 WBC (Bld)1.1 %0.2-2.0[facility] Eosinophils/100 WBC Auto (Bld)on 55-74-7270Apjcfmjihte/100 WBC (Bld)3.5 %0.9-7.0 [facility] CenterErythrocyte distribution width Auto (RBC) [Ratio]on 52-59-3156Penrhlgwclx distribution width (RBC) [Ratio]20.0 %High 11.0-15.0[facility] CenterEstimated glomerular filtration rate (GFR) non- Americanon 64-20-9337HTA/1.73 sq M.predicted among non-blacks MDRD (S/P/Bld) [Vol rate/Area]41 mL/min/{1.73_m2}Low>=60[facility] CenterGlobulin Calc (S) [Mass/Vol]on 78-20-1831Bkrndxov (S) [Mass/Vol] 4.2 g/dLSt. Mary'S Medical CenterHematocrit Auto (Bld) [Volume fraction] on 76-61-6865Ytjuhuwgre (Bld) [Volume fraction]33.1 %Low42.0-54.0[facility] CenterHemoglobin [Mass/volume] in Bloodon 29-92-4682Cxbfthcwvi (Bld) [Mass/Vol]9.8 g/dLLow14.0-18.0[facility] CenterLaboratory - Chemistry and Chemistry - challengeon 31-13-8737Jiuthvo [Mass/Vol]3.2 g/dLLow 3.4-5.0[facility] CenterALP [Catalytic activity/Vol]143 U/LHigh 46-116[facility] CenterALT [Catalytic activity/Vol]16 U/L16-63 [facility] CenterAST [Catalytic activity/Vol]14 U/OIro97-77 [facility] CenterBilirubin [Mass/Vol]0.5 mg/dL0.2-1.0[facility] CenterCalcium [Mass/Vol]9.1 mg/dL8.5-10.1FMarion HospitalChloride [Moles/Vol]101 mmol/K57-978XrceqmzddSt. Mary'S Medical CenterCO2 [Moles/Vol]24.2 mmol/L21.0-32.0[facility] Creatinine [Mass/Vol]1.72 mg/dLHigh0.70-1.30[facility] GFR/1.73 sq M.predicted MDRD (S/P/Bld) [Vol rate/Area]50 mL/min/{1.73_m2}Low>=60 [facility] CenterGlucose [Mass/Vol]132 mg/kUTtet48-789CkttxvfudSt. Mary'S Medical CenterLactate [Moles/Vol]3.6 mmol/LHigh0.4-2.0[facility] CenterComment on above:RESULTS CALLED TO DR CROOK/ERPotassium [Moles/Vol]3.7 mmol/L3.5-5.1FMarion HospitalProtein [Mass/Vol] 7.4 g/dL6.4-8.2FTriHealth Good Samaritan Hospitalodium [Moles/Vol]138 mmol/L 136-145St[facility] CenterUrea nitrogen [Mass/Vol]26.0 mg/dLHigh 7.0-18.0[facility] CenterUrea nitrogen/Creatinine [Mass ratio] 15.1 mg/mgSt. Mary'S Medical CenterLaboratory - Hematology and Cell countson 57-82-2027EKS (Bld) [Velocity]96 mm/hHigh<=20[facility] CenterImmature granulocytes/100 WBC (Bld)0.4 %0.0-0.5FMarion HospitalLeukocytes [#/volume] corrected for nucleated erythrocytes in Blood by Automated counon 47-39-7830BSJ corrected for nucl RBC Auto (Bld) [#/Vol]9.1 10 3/uL4.0-11.0[facility] CenterLymphocytes Auto (Bld) [#/Vol]on 20-22-1350Vlozyugrkwo (Bld) [#/Vol]2.1 10 3/uL1.2-3.8[facility] CenterLymphocytes/100 WBC Auto (Bld)on 78-84-8657Iyowsmrckiu/100 WBC (Bld)23.4 % 20.5-60.0[facility] HospitalH Auto (RBC) [Entitic mass]on 62-62-9718GKY (RBC) [Entitic mass]24.8 pgLow25.9-34.0[facility] CenterMCHC Auto (RBC) [Mass/Vol]on 95-26-4612LMYW (RBC) [Mass/Vol]29.6 g/dLLow 29.9-35.2FMarion HospitalMCV Auto (RBC) [Entitic vol]on 25-59-1588EAZ (RBC) [Entitic vol]83.8 fL80.0-94.0[facility] CenterMonocytes Auto (Bld) [#/Vol]on 85-90-1076Mujpyobjj (Bld) [#/Vol]0.8 10 3/uL0.3-0.8[facility] CenterMonocytes/100 WBC Auto (Bld)on 51-69-5583Mwuvbtmet/100 WBC (Bld)8.5 %1.7-12.0[facility] Neutrophils Auto (Bld) [#/Vol]on 27-59-3880Fxaoqmeamhh (Bld) [#/Vol]5.7 10 3/uL 1.4-6.5FMarion HospitalNeutrophils/100 WBC Auto (Bld)on 42-26-8294Gtsmebvscts/100 WBC (Bld)63.1 %43.0-75.0[facility] CenterNo Panel InformationOrdered By: HERNAN CROOK on 38-18-2113Ltvba Culture 2FMarion HospitalBlood Culture 1FMarion HospitalNo Panel Informationon 55-41-0360A-Reactive Protein, Quantitative<0.50 mg/dL<=0.50[facility] CenterEosinophils # (Auto)0.3 10 3/uL 0.0-0.7FMarion HospitalImmature Granulocyte # (Auto)0.04 10 3/uLHigh0.00-0.03[facility] CenterPlatelet mean volume Auto (Bld) [Entitic vol]on 75-89-0383Bhawlsac mean volume (Bld) [Entitic vol]10.4 fL 9.5-13.5FMarion HospitalPlatelets Auto (Bld) [#/Vol]on 78-11-3803Jseqlfzgs (Bld) [#/Vol]371 10 3/nM171-777TfkrjopdkSt. Mary'S Medical CenterRBC Auto (Bld) [#/Vol]on 74-49-1235TUE (Bld) [#/Vol]3.95 10 6/uLLow 4.70-6.10[facility] Centererum or plasma albumin/globulin mass ratioon 14-83-8427Ndjbubh/Globulin [Mass ratio]0.8 {ratio}[facility] Centererum or plasma anion gap determinationon 29-33-2309Vdjri gap [Moles/Vol]16.5 mmol/LFMarion HospitalProgress Note-Physicianon 52-83-3155Papoxbph Note-Physician [id number]#1.00TIFFNormalFisher [facility] Medical CenterBasophils Auto (Bld) [#/Vol]on 97-10-8584Hojlihlev (Bld) [#/Vol]0.1 10 3/uL0.0-0.1FMarion HospitalBasophils/100 WBC Auto (Bld)on 93-87-3569Fyzkklyjg/100 WBC (Bld)0.8 %0.2-2.0[facility] Eosinophils/100 WBC Auto (Bld)on 09-34-1310Poopvkdnubp/100 WBC (Bld)5.9 %0.9-7.0 [facility] CenterErythrocyte distribution width Auto (RBC) [Ratio]on 49-93-5691Mizwavocypk distribution width (RBC) [Ratio]20.6 %High 11.0-15.0[facility] CenterEstimated glomerular filtration rate (GFR) non- Americanon 83-37-3311SAO/1.73 sq M.predicted among non-blacks MDRD (S/P/Bld) [Vol rate/Area]44 mL/min/{1.73_m2}Low>=60[facility] CenterGlobulin Calc (S) [Mass/Vol]on 68-06-1959Xmdrsnli (S) [Mass/Vol] 4.7 g/dLSt. Mary'S Medical CenterHematocrit Auto (Bld) [Volume fraction] on 83-00-1466Rfthfvnzuk (Bld) [Volume fraction]27.6 %Low42.0-54.0[facility] CenterHemoglobin [Mass/volume] in Bloodon 71-93-5457Tdixcyvsuk (Bld) [Mass/Vol]8.5 g/dLLow14.0-18.0[facility] CenterLaboratory - Chemistry and Chemistry - challengeon 80-76-5683Eeefgbx [Mass/Vol]2.4 g/dLLow 3.4-5.0[facility] CenterALP [Catalytic activity/Vol]194 U/LHigh 46-116[facility] CenterALT [Catalytic activity/Vol]22 U/L16-63 [facility] CenterAST [Catalytic activity/Vol]25 U/L15-37 [facility] CenterBilirubin [Mass/Vol]0.9 mg/dL0.2-1.0[facility] CenterCalcium [Mass/Vol]8.9 mg/dL8.5-10.1FMarion HospitalChloride [Moles/Vol]97 mmol/CUne91-879RslnfvmbtSt. Mary'S Medical CenterCO2 [Moles/Vol]26.6 mmol/L21.0-32.0[facility] Creatinine [Mass/Vol]1.63 mg/dLHigh0.70-1.30[facility] GFR/1.73 sq M.predicted MDRD (S/P/Bld) [Vol rate/Area]53 mL/min/{1.73_m2}Low>=60 [facility] CenterGlucose [Mass/Vol]226 mg/cRNfnb34-166RkqllvokdSt. Mary'S Medical CenterLactate [Moles/Vol]1.4 mmol/L0.4-2.0[facility] CenterPotassium [Moles/Vol]4.1 mmol/L3.5-5.1FMarion HospitalProtein [Mass/Vol]7.1 g/dL6.4-8.2FTriHealth Good Samaritan Hospitalodium [Moles/Vol]135 mmol/JEom541-241SrjwlqcffSt. Mary'S Medical CenterUrea nitrogen [Mass/Vol]24.0 mg/dLHigh7.0-18.0[facility] CenterUrea nitrogen/Creatinine [Mass ratio]14.7 mg/mgSt. [facility] Laboratory - Hematology and Cell countson 01-50-1662Zpnmnzhf granulocytes/100 WBC (Bld)0.6 %High0.0-0.5FMarion HospitalLeukocytes [#/volume] corrected for nucleated erythrocytes in Blood by Automated counon 31-20-4053JEV corrected for nucl RBC Auto (Bld) [#/Vol]9.5 10 3/uL4.0-11.0[facility] CenterLymphocytes Auto (Bld) [#/Vol]on 90-31-3700Tugsvmefoug (Bld) [#/Vol]1.3 10 3/uL1.2-3.8[facility] CenterLymphocytes/100 WBC Auto (Bld)on 81-31-1804Cebtedrazxa/100 WBC (Bld)14.1 %Low20.5-60.0[facility] HospitalH Auto (RBC) [Entitic mass]on 81-32-5434ESM (RBC) [Entitic mass]24.9 pgLow25.9-34.0[facility] CenterMCHC Auto (RBC) [Mass/Vol]on 16-87-9123NKEZ (RBC) [Mass/Vol]30.8 g/dL29.9-35.2FMarion HospitalMCV Auto (RBC) [Entitic vol]on 96-85-6570PNU (RBC) [Entitic vol]80.9 fL80.0-94.0[facility] CenterMonocytes Auto (Bld) [#/Vol]on 71-25-6147Vmabybywq (Bld) [#/Vol]1.1 10 3/uLHigh0.3-0.8[facility] CenterMonocytes/100 WBC Auto (Bld)on 64-21-7711Nnzzequyt/100 WBC (Bld)11.9 %1.7-12.0[facility] CenterNeutrophils Auto (Bld) [#/Vol]on 01-17-0702Pmaokblzxil (Bld) [#/Vol]6.4 10 3/uL1.4-6.5FMarion HospitalNeutrophils/100 WBC Auto (Bld)on 11-15-2023 Neutrophils/100 WBC (Bld)66.7 %43.0-75.0[facility] CenterNo Panel InformationOrdered By: Fely Marker on 28-76-7068Liftu Culture [address] [facility] CenterBlood Culture 1FMarion HospitalNo Panel Informationon 31-28-3221Rjhcbubqxuu # (Auto)0.6 10 3/uL0.0-0.7 [facility] CenterImmature Granulocyte # (Auto)0.06 10 3/uLHigh 0.00-0.03[facility] CenterPlatelet mean volume Auto (Bld) [Entitic vol]on 55-23-0758Vcdmgdpz mean volume (Bld) [Entitic vol]10.8 fL 9.5-13.5FMarion HospitalPlatelets Auto (Bld) [#/Vol]on 81-98-2288Cdcyndyfy (Bld) [#/Vol]338 10 3/lF330-072UlxnfajiuSt. Mary'S Medical CenterRBC Auto (Bld) [#/Vol]on 76-60-9563XFC (Bld) [#/Vol]3.41 10 6/uLLow 4.70-6.10[facility] Centererum or plasma albumin/globulin mass ratioon 28-05-9437Uyfmlgn/Globulin [Mass ratio]0.5 {ratio}[facility] Centererum or plasma anion gap determinationon 14-60-7386Jbmol gap [Moles/Vol]15.5 mmol/LFMarion HospitalBASIC METABOLIC PANLon 71-81-0296Cbjdi gap [Moles/Vol]10 mmol/LNormal5-15ProClermont County Hospital Comment on above:Performed By: #### KENDALL MARTÍNEZ, 63744-1, 2777-1 ####[facility] ([id number])[address] [facility] [address], [address] [place] [address] Calcium [Mass/Vol]8.8 mg/dLNormal8.5-10.5PSelect Medical Specialty Hospital - Southeast OhioComment on above:Performed By: #### CBC, BMP, 55204-2, 2777-1 ####[facility] ([id number])[address] [facility], [address], [place] [address]Fafteybq [Moles/Vol]99 mmol/ZAiopjw68-730HzvAyzcwj [place] HospitalComment on above:Performed By: #### KENDALL MARTÍNEZ, , 2776-06 ####[facility] ([id number])[address], [address], [place] [address]NA4 [Moles/Vol]26 mmol/DBvlsyy68-44IvcXwdevr [place] HospitalComment on above:Performed By: #### KENDALL MARTÍNEZ, , 2776-06 ####[facility] ([id number])[address] [address]TO[facility], [place] [address]Drwewclfpo [Mass/Vol]1.61 mg/dLHigh0.60-1.30[facility] Comment on above:Result Comment: METHOD TRACEABLE TO IDMS STANDARDPerformed By: #### KENDALL MARTÍNEZ, , 2776-06 ####[facility] ([id number])[address] [address]TO[facility], [place] [address]GYZ/1.73 sq M.predicted among non-blacks MDRD (S/P/Bld) [Vol rate/Area]49 mL/min/{1.73_m2}Low>59ProClermont County Hospital Comment on above:Result Comment: Reported eGFR is based on the CKD-EPI 2020 equation that does not use a race coefficient.Performed By: #### KENDALL MARTÍNEZ, , 2776-06 ####[facility] ([id number])[address] [address], [place] [address]Kxefwqr [Mass/Vol]184 mg/bGQcte91-72CuyTchdstClermont County HospitalComment on above:Performed By: #### KENDALL MARTÍNEZ, , 2776-06 ####[facility] ([id number])[address] [address], [place] [address]Onixcdoer [Moles/Vol] 4.0 mmol/LNormal3.5-5.0ProSt. Francis Hospitalca [place] HospitalComment on above:Performed By: #### KENDALL MARTÍNEZ, , 2776-06 ####[facility] ([id number])[address], [address] [place] [address]Osjiga [Moles/Vol]135 mmol/BZcupdy496-342 ProMUniversity Hospitals Beach[facility] Center HospitalComment on above:Performed By: #### TANYA, KENDALL, , 2776-06 ####[facility] ([id number])[address], [address], [place] [address]Cxzu nitrogen [Mass/Vol]23 mg/dLNormal5-23ProSt. Francis Hospitalca [place]bring HospitalComment on above:Performed By: #### KENDALL MARTÍNEZ, , 2776-06 ####[facility] ([id number])[address], [address] [place] [address] COMPLETE BLOOD COUNTon 30-22-7471Tgsqabbleft distribution width (RBC) [Ratio] 22.8 %High11.5-15.0ProSt. Francis Hospitalca Sebring HospitalComment on above:Performed By: #### KENDALL MARTÍNEZ, , 2776-06 ####[facility] ([id number])[address] [address] [place] [address]Wuixzimoxf (Bld) [Volume fraction]25.1 %Low 39-49ProSt. Francis Hospitalca Sebring HospitalComment on above:Performed By: #### TANYA, KENDALL, , 2776-06 ####[facility] ([id number])[address] [address] [place] [address]Nyubctqbsf (Bld) [Mass/Vol]8.1 g/dLLow13.0-17.0 ProMUniversity Hospitals Beachwood [facility] Center HospitalComment on above:Performed By: #### TANYA, KENDALL, , 2776-06 ####[facility] ([id number])[address], [address] [place] [address]LVA (RBC) [Entitic mass]25.1 scLfw00-58PwkTqbbpd Marina HospitalComment on above:Performed By: #### TANYA, KENDALL, , 2776-06 ####[facility] ([id number])[address], [address] [place] [address]KLTT (RBC) [Mass/Vol]32.4 g/jFInkxew01-54ZuwUtlycc [facility] HospitalComment on above: Performed By: #### TANYA, KENDALL, , 2776-06 ####[facility] ([id number])[address], [address] [place] [address]XGO (RBC) [Entitic vol]77 jMGkl16-591EciPirduk Marina HospitalComment on above:Performed By: #### TANYA, KENDALL, , 2776-06 ####[facility] ([id number])[address], [address] [place] [address]Zxsnlwwu mean volume (Bld) [Entitic vol]8.8 fL Normal7-12ProMedica Marina HospitalComment on above:Performed By: #### TANYA, BMP, , 2776-06 ####[facility] ([id number])[address], [address] [place] [address]Gyterwcen (Bld) [#/Vol]232 10*3/gKHcoznp452-815 [facility] HospitalComment on above:Performed By: #### TANYA, BMP, , 2776-06 ####[facility] ([id number])[address], [address] [place] [address]FEJ COUNT3.25 X10E12/LLow4.10-5.70[facility] Comment on above:Performed By: #### TANYA, BMP, , 2776-06 ####[facility] ([id number])[address], [address] [place] [address] 93545INR (Bld) [#/Vol]8.4 10*3/uLNormal4.0-11.0ProMedica Marina HospitalComment on above: Performed By: #### KENDALL MARTÍNEZ, , 277-1 ####[facility] ([id number])[address], [address] [place] [address]Hojvqsb Glucometer (BldC) [Mass/Vol]on 50-81-3545Foojpra [Mass/Vol]173 mg/pWPovp47-47WvySgqhpb [facility] HospitalGlucose [Mass/Vol]279 mg/gPNxqa01-97WayGqjsrv [facility] HospitalGlucose [Mass/Vol]249 mg/aWLxcl95-02KtpKttiqr [facility] HospitalMAGNESIUMon 11-14-2023 Magnesium [Mass/Vol]2.1 mg/dLNormal1.8-2.6ProMedica Marina HospitalComment on above:Performed By: #### 95454-2 ####[facility] ([id number])[address], [address] [place] [address]Weakropck [Mass/Vol]mg/dL Critically low1.8-2.6ProMedica Marina HospitalComment on above:Performed By: #### 57916-4 ####[facility] ([id number])[address], [address], [place] [address]Ksgzsfdcj [Mass/Vol]1.7 mg/dLLow1.8-2.6ProMedica [facility] HospitalComment on above:Performed By: #### TANYA, KENDALL, , 2771 ####[facility] ([id number])[address], [address], [place] [address] PHOSPHORUSon 64-73-7985Wzshdzbdm [Mass/Vol]3.6 mg/dLNormal2.4-4.9Pro[facility] HospitalComment on above:Performed By: #### TANYA, KENDALL, , 2776-06 ####[facility] ([id number])[address], [address], [place] [address]PBKEE METABOLIC PANLon 88-78-5991Lymxi gap [Moles/Vol]10 mmol/LNormal5-15 [facility] HospitalComment on above:Performed By: #### TANYA, KENDALL, , 2776-06 ####[facility] ([id number])[address], [address], [place] [address]Rpllwpm [Mass/Vol]8.9 mg/dLNormal8.5-10.5Pro[facility]ica [facility] HospitalComment on above:Performed By: #### KENDALL MARTÍNEZ, , 2776-06 ####[facility] ([id number])[address], [address], [place] [address] Chloride [Moles/Vol]98 mmol/ECwvghf74-300SiaLnpucd [facility] HospitalComment on above:Performed By: #### TANYA, KENDALL, , 2776-06 ####[facility] ([id number])[address], [address], [place] [address]JW5 [Moles/Vol]27 mmol/FYiijhz45-01OztWlqqmh [facility] HospitalComment on above:Performed By: #### TANYA, KENDALL, , 2776-06 ####[facility] ([id number])[address], [address], [place] [address]Yigdzmtmfg [Mass/Vol]1.47 mg/dLHigh0.60-1.30 [facility] HospitalComment on above:Result Comment: METHOD TRACEABLE TO IDMS STANDARDPerformed By: #### KENDALL MARTÍNEZ, , 2776-06 ####[facility] ([id number])[address], [address], [place] [address]EFE/1.73 sq M.predicted among non-blacks MDRD (S/P/Bld) [Vol rate/Area]55 mL/min/{1.73_m2} Low>59ProSt. Francis Hospitalca [facility]bring HospitalComment on above:Result Comment: Reported eGFR is based on the CKD-EPI 2020 equation that does not use a race coefficient.Performed By: #### KENDALL MARTÍNEZ, , 2776-06 ####[facility] ([id number])[address] [address], [place] [address]Llpbceo [Mass/Vol]164 mg/cJNglu72-25AwkWhuovr [place] HospitalComment on above:Performed By: #### KENDALL MARTÍNEZ, , 2776-06 ####[facility] ([id number])[address] [address]Pcnydqzth [Moles/Vol] 3.8 mmol/LNormal3.5-5.0ProClermont County Hospital HospitalComment on above:Performed By: #### KENDALL MARTÍNEZ, , 2776-06 ####[facility] ([id number])[address] [address]Amxhcp [Moles/Vol]135 mmol/GVuhvet697-428 ProMUniversity [facility]als [facility] HospitalComment on above:Performed By: #### KENDALL MARTÍNEZ, , 2776-06 ####[facility] ([id number])[address] [address]Vqgl nitrogen [Mass/Vol]26 mg/dLHigh5-23ProClermont County Hospital HospitalComment on above:Performed By: #### KENDALL MARTÍNEZ, , 2776-06 ####[facility] ([id number])[address] [address] COMPLETE BLOOD COUNTon 55-81-7125Dmvpjnqltnv distribution width (RBC) [Ratio] 23.2 %High11.5-15.0[facility] HospitalComment on above:Performed By: #### TANYA, BMP, , 2776-06 ####[facility] ([id number])[address], [place] [address]Gxnruookcc (Bld) [Volume fraction]24.7 %Low 39-49[facility] HospitalComment on above:Performed By: #### CBC, BMP, , 2776-06 ####[facility] ([id number])[address], [address], [place] [address]Xedpdjiihk (Bld) [Mass/Vol]8.2 g/dLLow13.0-17.0 [facility] HospitalComment on above:Performed By: #### TANYA, BMP, , 2776-06 ####[facility] ([id number])[address], [address], [place] [address]GRQ (RBC) [Entitic mass]25.7 llEks63-52MjaHbnklv [facility] HospitalComment on above:Performed By: #### TANYA, BMP, , 2776-06 ####[facility] ([id number])[address], [address], [place] [address]HLUQ (RBC) [Mass/Vol]33.4 g/iAEpwedt15-50ElxUqmoll [facility] HospitalComment on above: Performed By: #### CBC, BMP, , 2776-06 ####[facility] ([id number])[address], [address], [place] [address]NXU (RBC) [Entitic vol]77 aRItn61-787HexTdmogh [facility] HospitalComment on above:Performed By: #### CBC, BMP, , 2776-06 ####[facility] ([id number])[address], [place] [address]Cujlwnag mean volume (Bld) [Entitic vol]8.8 fL Normal7-12[facility] HospitalComment on above:Performed By: #### TANYA, KENDALL, , 2776-06 ####[facility] ([id number])[address], [address] [place] [address]Hspkwgifi (Bld) [#/Vol]207 10*3/cVSxymbm822-748 [facility] HospitalComment on above:Performed By: #### TANYA, KENDALL, , 2776-06 ####[facility] ([id number])[address], [address] [place] [address]OFI COUNT3.21 X10E12/LLow4.10-5.70[facility] Comment on above:Performed By: #### KENDALL MARTÍNEZ, , 2776-06 ####[facility] ([id number])[address], [address] [place] [address]KLG (Bld) [#/Vol]8.1 10*3/uLNormal4.0-11.0[facility] HospitalComment on above: Performed By: #### TANYA, KENDALL, , 2776-06 ####[facility] ([id number])[address], [address] [place] [address]Kvyszia Glucometer (BldC) [Mass/Vol]on 52-22-7851Qqktzgx [Mass/Vol]230 mg/mIImnh04-34KrcIjcyob [facility] HospitalGlucose [Mass/Vol]225 mg/cLUqbf50-18MhrOurgeg [facility] HospitalGlucose [Mass/Vol]331 mg/eQQpwb43-59AzwQzldux [facility] HospitalGlucose [Mass/Vol]190 mg/dL Gmji34-41ZydCxpxjv [facility] HospitalMAGNESIUMon 10-33-9696Jywkqylfe [Mass/Vol]2.1 mg/dLNormal1.8-2.6[facility] HospitalComment on above:Performed By: #### TANYA, BMP, [address]-4, 2777-1 ####[facility] ([id number])[address], [place] [address]HCQGQRPQJZei 25-89-7389Hbobnblzz [Mass/Vol] 3.8 mg/dLNormal2.4-4.9[facility] HospitalComment on above:Performed By: #### TANYA, BMP, , 2777- ####[facility] ([id number])[address], [place] [address]MENLC METABOLIC PANLon 36-08-6564Fjeue gap [Moles/Vol]11 mmol/LNormal5-15[facility] HospitalComment on above: Performed By: #### TANYA, BMP #### [facility] ([id number]) [address], [address] [place], [place] [address]Qziwygf [Mass/Vol]9.0 mg/dLNormal8.5-10.5[facility] HospitalComment on above:Performed By: #### TANYA, BMP #### [facility] ([id number]) [address], [address] [place], [place] [address]Mnvrxvgq [Moles/Vol]98 mmol/GGcznct71-777WxuVzsnax [facility] HospitalComment on above:Performed By: #### TANYA, BMP #### [facility] ([id number]) [address], [address] [place], [place] [address]OD7 [Moles/Vol]25 mmol/BVnjuht68-57GmcGxpmdg [facility] Comment on above:Performed By: #### TANYA, BMP #### [facility] ([id number]) [address], [address] [place], [place] [address]Wnhjrpgvtx [Mass/Vol]1.40 mg/dLHigh0.60-1.30[facility] HospitalComment on above:Result Comment: METHOD TRACEABLE TO IDMS STANDARD Performed By: #### TANYA, BMP #### [facility] ([id number]) [address] [address] [place], [place] [address]JLX/1.73 sq M.predicted among non-blacks MDRD (S/P/Bld) [Vol rate/Area]58 mL/min/{1.73_m2}Low>59[facility] HospitalComment on above: Result Comment: Reported eGFR is based on the CKD-EPI 2020 equation that does not use a race coefficient.Performed By: #### TANYA, BMP #### [facility] [facility] ([id number]) [address] [address] [place], [place] [address]Mpjctrc [Mass/Vol]194 mg/aMQsjn99-30JyhPjvlqe [facility] Comment on above:Performed By: #### TANYA, BMP #### [facility] ([id number]) [address] [address] [place], [place] [address]Gudsxnksg [Moles/Vol]4.0 mmol/LNormal3.5-5.0ProClermont County Hospital HospitalComment on above:Performed By: #### TANYA, BMP #### [facility] ([id number]) [address] [place], [place] [address]Zresbq [Moles/Vol]134 mmol/KMrkyqy247-535RigJcekjg [place] HospitalComment on above:Performed By: #### CBC, BMP #### [facility] ([id number]) [address] [address] [place], [place] [address]Gmyg nitrogen [Mass/Vol]23 mg/dLNormal5-23ProClermont County Hospital HospitalComment on above:Performed By: #### CBC, BMP #### [facility] ([id number]) [address] [address] [place], [place] [address]MPJNNOXZ BLOOD COUNTon 57-48-0511Vdfwmzbuwtb distribution width (RBC) [Ratio]24.1 %High11.5-15.0ProSt. Francis Hospitalca [place] HospitalComment on above: Performed By: #### CBC, BMP #### [facility] ([id number]) [address], [address] [place], [place] [address]Vtbcjcthmg (Bld) [Volume fraction]25.8 %Iro80-23AvwPeeeng [place] HospitalComment on above:Performed By: #### CBC, BMP #### [facility] ([id number]) [address], [address] [place], [place] [address]Mabiunivsi (Bld) [Mass/Vol]8.6 g/dLLow13.0-17.0[facility] HospitalComment on above:Performed By: #### CBC, BMP #### [facility] ([id number]) [address], [address] [place], [place] [address]SCG (RBC) [Entitic mass]25.7 inRjh27-32CegQsvpheClermont County Hospital Comment on above:Performed By: #### CBC, BMP #### [facility] ([id number]) [address], [address] [place], [place] [address]EEMV (RBC) [Mass/Vol]33.5 g/gAOwxkqz60-61UhcHrxngb [place] HospitalComment on above:Performed By: #### CBC, BMP #### [facility] ([id number]) [address], [address] [place], [place] [address]FZH (RBC) [Entitic vol]77 cHNvp36-871DkcRishfrClermont County Hospital Comment on above:Performed By: #### CBC, BMP #### [facility] ([id number]) [address], [address] [place], [place] [address]Fenxbpqy mean volume (Bld) [Entitic vol]9.2 fLNormal7-12 [facility] HospitalComment on above:Performed By: #### CBC, BMP #### [facility] ([id number]) [address], [address] [place], [place] [address]Uzcwcuugg (Bld) [#/Vol]185 10*3/iKGiqigg550-937RhxCmmwhu [place] HospitalComment on above:Performed By: #### CBC, BMP #### [facility] ([id number]) [address] [address] [place] [address]YVI COUNT3.37 X10E12/LLow4.10-5.70ProClermont County Hospital Comment on above:Performed By: #### CBC, BMP #### [facility] ([id number]) [address] [facility] [place], [place] [address]FVD (Bld) [#/Vol]10.0 10*3/uLNormal4.0-11.0ProClermont County HospitalComment on above:Performed By: #### CBC, BMP #### [facility] ([id number]) [address], [address] [place] [address]Kslkfdo Glucometer (BldC) [Mass/Vol]on 43-34-0699Trqbztj [Mass/Vol]230 mg/bMXnql56-32LaiYxksgq [facility] HospitalGlucose [Mass/Vol]280 mg/dL Lyfg67-61FufClnobf [facility] HospitalGlucose [Mass/Vol]268 mg/oPKpcz16-47IkoMifjtx [facility] HospitalGlucose [Mass/Vol]220 mg/aNXjtn23-33LgaXlfksq [facility] Glucose [Mass/Vol]205 mg/oIKywx47-88TdwXokgap [facility] HospitalMAGNESIUMon 08-15-1690Iqlswmvck [Mass/Vol]1.8 mg/dLNormal1.8-2.6[facility] Comment on above:Performed By: #### CBC, BMP #### [facility] ([id number]) [address], [address] [place], [place] [address]MBKAAUNMHYnm 27-05-2115Tsehyrcym [Mass/Vol]3.8 mg/dLNormal 2.4-4.9[facility] HospitalComment on above:Performed By: #### TANYA, BMP #### [facility] ([id number]) [address] [place], [place] [address]RDTWA METABOLIC PANLon 94-84-2321Gwkfh gap [Moles/Vol]8 mmol/L Normal5-15[facility] HospitalComment on above:Performed By: #### CBC, BMP #### [facility] ([id number]) [address], [address] [place], [place] [address]Wyacjwf [Mass/Vol]8.7 mg/dLNormal8.5-10.5[facility] HospitalComment on above:Performed By: #### TANYA, BMP #### [facility] ([id number]) [address], [address] [place], [place] [address]Zxbrbyul [Moles/Vol]99 mmol/RVvuugn13-269BsgOejmsl [facility] HospitalComment on above:Performed By: #### TANYA, BMP #### [facility] ([id number]) [address] [place], [place] [address]ZJ6 [Moles/Vol]26 mmol/HAvllme65-96OumOlztpg [facility] Comment on above:Performed By: #### CBC, BMP #### [facility] ([id number]) [address] [place], [place] [address]Cwicmufgqx [Mass/Vol]1.45 mg/dLHigh0.60-1.30ProSt. Francis Hospitalca Marina HospitalComment on above:Result Comment: METHOD TRACEABLE TO IDMS STANDARD Performed By: #### CBC, BMP #### [facility] ([id number]) [address] [place], [place] [address]FYR/1.73 sq M.predicted among non-blacks MDRD (S/P/Bld) [Vol rate/Area]56 mL/min/{1.73_m2}Low>59ProClermont County Hospital HospitalComment on above: Result Comment: Reported eGFR is based on the CKD-EPI 2020 equation that does not use a race coefficient.Performed By: #### TANYA, BMP #### [facility] ([id number]) [address], [address] [place], [place] [address]Mnncpih [Mass/Vol]153 mg/vVMjqx84-22ZfcYlcikkClermont County Hospital Comment on above:Performed By: #### CBC, BMP #### [facility] ([id number]) [address] [address]Pkijacfqp [Moles/Vol]3.9 mmol/LNormal3.5-5.0ProClermont County HospitalComment on above:Performed By: #### CBC, BMP #### [facility] ([id number]) [address], [address] [place], [place] [address]Eltqyf [Moles/Vol]133 mmol/ZYli305-452CwlSueggzClermont County Hospital Comment on above:Performed By: #### CBC, BMP #### [facility] ([id number]) [address] [address]Qcqh nitrogen [Mass/Vol]27 mg/dLHigh5-23ProClermont County HospitalComment on above:Performed By: #### CBC, BMP #### [facility] ([id number]) [address] [address]MASRRUMA BLOOD COUNTon 26-87-0929Aqdcqspytcf distribution width (RBC) [Ratio]24.2 %High11.5-15.0ProClermont County Hospital HospitalComment on above: Performed By: #### CBC, BMP #### [facility] ([id number]) [address] [address]Zsroyecigj (Bld) [Volume fraction]25.1 %Bsw49-25UioFabzcb [facility] HospitalComment on above:Performed By: #### CBC, BMP #### [facility] ([id number]) [address], [address] [place], [place] [address]Bmjrmzlmpz (Bld) [Mass/Vol]8.2 g/dLLow13.0-17.0Cl[facility] County HospitalComment on above:Performed By: #### CBC, BMP #### [facility] ([id number]) [address], [address] [place], [place] [address]QUE (RBC) [Entitic mass]25.5 rhHfy77-45BrqZwbeadClermont County Hospital Comment on above:Performed By: #### CBC, BMP #### [facility] ([id number]) [address], [address] [place], [place] [address]XOJO (RBC) [Mass/Vol]32.7 g/jAVoxrvf87-56SreQthuam [facility] HospitalComment on above:Performed By: #### CBC, BMP #### [facility] ([id number]) [address], [address] [place], [place] [address]MZW (RBC) [Entitic vol]78 tFHdd11-272EbgWggaxdClermont County Hospital Comment on above:Performed By: #### CBC, BMP #### [facility] ([id number]) [address], [address] [place], [place] [address]Lrhkqjvk mean volume (Bld) [Entitic vol]9.0 fLNormal7-12 ProMUniversity [facility] HospitalComment on above:Performed By: #### CBC, BMP #### [facility] ([id number]) [address], [address] [place], [place] [address]Dllulfqgn (Bld) [#/Vol]152 10*3/eNIdjruj109-229ZmpKjectl [facility] HospitalComment on above:Performed By: #### CBC, BMP #### [facility] ([id number]) [address], [address] [place], [place] [address]ONM COUNT3.22 X10E12/LLow4.10-5.70[facility] Comment on above:Performed By: #### TANYA, BMP #### [facility] ([id number]) [address], [address] [place], [place] [address]EFZ (Bld) [#/Vol]9.8 10*3/uLNormal4.0-11.0[facility] HospitalComment on above:Performed By: #### CBC, BMP #### [facility] ([id number]) [address], [address] [place], [place] [address]Opseyxn Glucometer (BldC) [Mass/Vol]on 45-73-0958Sqbmjah [Mass/Vol]184 mg/dVNqbd63-57TcjIayobh [facility] HospitalGlucose [Mass/Vol]179 mg/dL Lasa38-05RhfQtylhf [facility] HospitalGlucose [Mass/Vol]222 mg/xMNxoz72-41TueGzkxos [facility] HospitalGlucose [Mass/Vol]303 mg/dPDuzv86-06EpdLsglmm [facility] MAGNESIUMon 40-87-3931Nugvrfwsj [Mass/Vol]2.4 mg/dLNormal1.8-2.6[facility] HospitalComment on above:Performed By: #### CBC, BMP #### [facility] ([id number]) [address], [address] [place], [place] [address]Smigllhbl [Mass/Vol]1.9 mg/dLNormal1.8-2.6[facility] HospitalComment on above:Performed By: #### CBC, BMP #### [facility] ([id number]) [address], [address] [place], [place] [address]MJMEWVPFWXvh 92-62-3668Jcalinolq [Mass/Vol]3.2 mg/dLNormal 2.4-4.9[facility] HospitalComment on above:Performed By: #### CBC, BMP #### [facility] ([id number]) [address], [address] [place], [place] [address]BVACY METABOLIC PANLon 87-71-4087Ayxqm gap [Moles/Vol]6 mmol/L Normal5-15[facility] HospitalComment on above:Performed By: #### KENDALL MARTÍNEZ, , 2776-06 ####[facility] ([id number])[address] [place] [address]Hhfhsrn [Mass/Vol]8.5 mg/dLNormal8.5-10.5[facility] HospitalComment on above:Performed By: #### KENDALL MARTÍNEZ, , 2776-06 ####[facility] ([id number])[address] [address]Xlzezdgg [Moles/Vol]102 mmol/ZKkolxu72-263WudOxtycc [facility] HospitalComment on above:Performed By: #### KENDALL MARTÍNEZ, , 2776-06 ####[facility] ([id number])[address] [address]TG7 [Moles/Vol] 26 mmol/ECyoeck52-25BfqOlzhlx [facility] HospitalComment on above:Performed By: #### KENDALL MARTÍNEZ, , 2776-06 ####[facility] ([id number])[address] [address], [place] [address]Noyonpjsfe [Mass/Vol]1.59 mg/dLHigh0.60-1.30 [facility] HospitalComment on above:Result Comment: METHOD TRACEABLE TO IDMS STANDARDPerformed By: #### KENDALL MARTÍNEZ, , 2776-06 ####[facility] ([id number])[address] [address] [place] [address]HXH/1.73 sq M.predicted among non-blacks MDRD (S/P/Bld) [Vol rate/Area]50 mL/min/{1.73_m2} Low>59ProCl[facility] Hospital HospitalComment on above:Result Comment: Reported eGFR is based on the CKD-EPI 2020 equation that does not use a race coefficient.Performed By: #### KENDALL MARTÍNEZ, , 2776-06 ####[facility] ([id number])[address] [address], [place] [address]Dchlxmq [Mass/Vol]145 mg/uBLpuq87-05StpJxbpoj [facility] HospitalComment on above:Performed By: #### KENDALL MARTÍNEZ, , 2776-06 ####[facility] ([id number])[address] [address], [place] [address]Jpccozyoq [Moles/Vol] 3.9 mmol/LNormal3.5-5.0ProCl[facility] Hospital HospitalComment on above:Performed By: #### KENDALL MARTÍNEZ, , 2776-06 ####[facility] ([id number])[address] [address], [place] [address]Xffwws [Moles/Vol]134 mmol/JThlqaj437-815 [facility] HospitalComment on above:Performed By: #### KENDALL MARTÍNEZ, , 2776-06 ####[facility] ([id number])[address] [address]Sibr nitrogen [Mass/Vol]23 mg/dLNormal5-23ProCl[facility] HospitalComment on above:Performed By: #### KENDALL MARTÍNEZ, , 2776-06 ####[facility] ([id number])[address] [address] COMPLETE BLOOD COUNTon 53-49-6171Pnkngxyvscj distribution width (RBC) [Ratio] 24.9 %High11.5-15.0ProCl[facility] Hospital HospitalComment on above:Performed By: #### KENDALL MARTÍNEZ, , 2776-06 ####[facility] ([id number])[address], [place] [address]Ekiwgvzqvd (Bld) [Volume fraction]24.5 %Low 39-49[facility] HospitalComment on above:Performed By: #### TANYA, BMP, , 2776-06 ####[facility] ([id number])[address], [place] [address]Mazxuizryk (Bld) [Mass/Vol]7.9 g/dLLow13.0-17.0 [facility] HospitalComment on above:Performed By: #### TANYA, BMP, , 2776-06 ####[facility] ([id number])[address], [place] [address]XDZ (RBC) [Entitic mass]25.4 jcBxs72-53JcaTzzydw [facility] HospitalComment on above:Performed By: #### TANYA, BMP, , 2776-06 ####[facility] ([id number])[address], [address] [place] [address]NWWT (RBC) [Mass/Vol]32.4 g/nIFaetqy62-61CzvQgsfbw [facility] HospitalComment on above: Performed By: #### TANYA, BMP, , 2776-06 ####[facility] ([id number])[address] [place] [address]GHX (RBC) [Entitic vol]78 mRBkr87-224CwkWcmnbs [facility] HospitalComment on above:Performed By: #### CBC, BMP, , 2776-06 ####[facility] ([id number])[address], [place] [address]Ovtnvgki mean volume (Bld) [Entitic vol]9.1 fL Normal7-12[facility] HospitalComment on above:Performed By: #### TNAYA, KENDALL, , 2776-06 ####[facility] ([id number])[address], [address] [place] [address]Pxfhuxkzi (Bld) [#/Vol]142 10*3/vVHzi705-203MvbFnwzem [facility] HospitalComment on above:Performed By: #### TANYA, KENDALL, , 2776-06 ####[facility] ([id number])[address], [address] [place] [address]BAJ COUNT3.14 X10E12/LLow4.10-5.70[facility] HospitalComment on above:Performed By: #### KENDALL MARTÍNEZ, , 2776-06 ####[facility] ([id number])[address], [address] [place] [address]VLR (Bld) [#/Vol]9.7 10*3/uLNormal4.0-11.0[facility] HospitalComment on above:Performed By: #### KENDALL MARTÍNEZ, , 2776-06 ####[facility] ([id number])[address], [address] [place] [address]Sdcvmwb Glucometer (BldC) [Mass/Vol]on 98-12-8925Rvpfsdj [Mass/Vol]168 mg/eBWmdv98-23MykEyhehs Marina HospitalGlucose [Mass/Vol]245 mg/oSHegv38-28ZiqUezrlj [facility] HospitalGlucose [Mass/Vol]155 mg/dL Kbmp15-51YdrCctnbc [facility] HospitalGlucose [Mass/Vol]153 mg/rLUrzw26-57LeeMuzyfx [facility] HospitalMAGNESIUMon 17-89-3081Ixaclosxe [Mass/Vol]2.2 mg/dLNormal1.8-2.6 [facility] HospitalComment on above:Performed By: #### TANYA, BMP #### [facility] ([id number]) [address] [place], [place] [address]Awjuyudre [Mass/Vol]1.8 mg/dLNormal1.8-2.6[facility] HospitalComment on above:Performed By: #### CBC, BMP, , 2776-06 ####[facility] ([id number])[address], [place] [address] PHOSPHORUSon 50-27-2308Isrmcdyre [Mass/Vol]3.1 mg/dLNormal2.4-4.9[facility] HospitalComment on above:Performed By: #### CBC, BMP, , 2776-06 ####[facility] ([id number])[address], [place] [address]BHCKZ METABOLIC PANLon 40-88-1499Neoov gap [Moles/Vol]9 mmol/LNormal5-15 [facility] HospitalComment on above:Performed By: #### CBC, 2639-3, BMP, 2156-11, , 2776-06 ####[facility] ([id number])[address], [place] [address]Kiiihnj [Mass/Vol]8.4 mg/dLLow8.5-10.5 [facility] HospitalComment on above:Performed By: #### CBC, 2639-3, BMP, 2156-11, , 2776-06 ####[facility] ([id number])[address], [place] [address]Bpqctjtx [Moles/Vol]104 mmol/LSdstqh56-197 [facility] HospitalComment on above:Performed By: #### CBC, 2639-3, BMP, 2156-11, , 2776-06 ####[facility] ([id number])[address], [place] [address]ZL1 [Moles/Vol]25 mmol/NQmhzew86-05KppVlhzwwSelect Medical Specialty Hospital - Southeast OhioComment on above:Performed By: #### TANYA, 2639-3, BMP, 2156-11, , 2776-06 ####[facility] ([id number])[address], [place] [address]Aufdhvreuh [Mass/Vol]1.35 mg/dLHigh0.60-1.30[facility] County HospitalComment on above:Result Comment: METHOD TRACEABLE TO IDMS STANDARDPerformed By: #### TANYA, 2639-3, BMP, 2156-11, , 2776-06 ####[facility] ([id number])[address], [place] [address] GFR/1.73 sq M.predicted among non-blacks MDRD (S/P/Bld) [Vol rate/Area]61 mL/min/{1.73_m2}Normal>59ProClermont County HospitalComment on above:Result Comment: Reported eGFR is based on the CKD-EPI 2020 equation that does not use a race coefficient.Performed By: #### TANYA, 2639-3, BMP, 2156-11, , 2776-06 ####[facility] ([id number])[address] [address], [place] [address]Ixudjos [Mass/Vol]217 mg/qHAwqr99-43JpzNeximmClermont County Hospital Comment on above:Performed By: #### TANYA, 2639-3, BMP, 2156-11, , 2776-06 ####[facility] ([id number])[address] [address], [place] [address]Pvquzmzys [Moles/Vol]4.2 mmol/LNormal3.5-5.0[facility] Comment on above:Performed By: #### TANYA, 2639-3, BMP, 2156-11, , 2776-06 ####[facility] ([id number])[address], [place] [address]Edyqgm [Moles/Vol]138 mmol/KUsvlcp075-338TnsDoqned [facility] HospitalComment on above:Performed By: #### CBC, 2639-3, BMP, 2156-11, , 2776-06 ####[facility] ([id number])[address], [place] [address]Wttk nitrogen [Mass/Vol]23 mg/dLNormal5-23ProSt. Francis Hospitalca [facility] HospitalComment on above: Performed By: #### CBC, 2639-3, BMP, 2156-11, , 2776-06 ####[facility] ([id number])[address], [place] [address]TR [Catalytic activity/Vol]on 94-93-3215WGP03 U/HSvtahg91-880BqrRhrmue [place] HospitalComment on above:Performed By: #### 2157-6, 2638-3 ####[facility] ([id number])[address] [address], [place] [address]JGF[address] U/YQzmiqy05-743 [facility] HospitalComment on above:Performed By: #### CBC, 2639-3, BMP, 2156-11, , 2776-06 ####[facility] ([id number])[address] [address] [address]XQGUEEWP BLOOD COUNTon 32-70-3984Tlvsezqrmwh distribution width (RBC) [Ratio]24.9 %High11.5-15.0ProCl[facility] Comment on above:Performed By: #### CBC, 2639-3, BMP, 2156-11, , 2776-06 ####[facility] ([id number])[address] [address] [place], [place] [address]Gqhchlncjc (Bld) [Volume fraction]26.8 %Kvi44-90EzbCpgneeClermont County Hospital Comment on above:Performed By: #### CBC, 2639-3, BMP, 2156-11, , 2776-06 ####[facility] ([id number])[address] [place] [address]Uvxlkvncag (Bld) [Mass/Vol]8.7 g/dLLow13.0-17.0[facility] Comment on above:Performed By: #### CBC, 2639-3, BMP, 2156-11, , 2776-06 ####[facility] ([id number])[address], [address] [place] [address]OTJ (RBC) [Entitic mass]24.8 ufYax12-39CrmIrshvoClermont County HospitalComment on above:Performed By: #### CBC, 2639-3, BMP, 2156-11, , 2776-06 ####[facility] ([id number])[address] [place] [address] 34107TQFO (RBC) [Mass/Vol]32.6 g/dXPwjlvn12-56QucPbnrapClermont County HospitalComment on above: Performed By: #### CBC, 2639-3, BMP, 2156-11, , 2776-06 ####[facility] ([id number])[address], [address] [place] [address] 85270KOJ (RBC) [Entitic vol]76 hRXwa18-437IlaTzxcmcClermont County HospitalComment on above:Performed By: #### CBC, 2639-3, BMP, 2156-11, , 2776-06 ####[facility] ([id number])[address], [address] [place] [address] 04079Cgpztaiu mean volume (Bld) [Entitic vol]9.3 fLNormal7-12PCommunity Regional Medical Centero HospitalComment on above: Performed By: #### CBC, 2639-3, BMP, 2156-6, 47594-3, 2776- ####[facility] ([id number])[address], [address] [place] [address] 27258Gbudtlwum (Bld) [#/Vol]184 10*3/oLQylfki778-385LmiSkowhn Marina HospitalComment on above: Performed By: #### CBC, 2639-3, BMP, 2156-6, 63643-4, 2776- ####[facility] ([id number])[address], [address] [place] [address] 47693ZHR COUNT3.53 X10E12/LLow4.10-5.70ProSt. Francis Hospitalca Sebring HospitalComment on above:Performed By: #### CBC, 2639-3, BMP, 2156-, , 2776- ####[facility] ([id number])[address], [address] [place] [address] 88894SIZ (Bld) [#/Vol]11.0 10*3/uLNormal4.0-11.0ProSt. Francis Hospitalca Marina HospitalComment on above:Performed By: #### CBC, 2639-3, BMP, 2156-6, 53206-5, 2776-1 ####[facility] ([id number])[address], [address] [place] [address] 24695Yhjnskj Glucometer (BldC) [Mass/Vol]on 66-09-6225Wygmpjz [Mass/Vol]243 mg/hLSudu37-78JfkDjexvn Marina HospitalGlucose [Mass/Vol]184 mg/wQSlje39-65CvhAqhxrb Marina HospitalGlucose [Mass/Vol]199 mg/zXZteo39-08FkfHjmhmj Marina HospitalGlucose [Mass/Vol]218 mg/dL Gkee54-37BeyNiqbpg Marina HospitalHeparin unfractionated Chromogenic method Qn (PPP)on 28-74-1136QWCY XA UFH0.15 IU/mLLow0.30-0.70[facility] Comment on above:Result Comment: Optimal time for testing is 6 hrs post dosage This test is specific for monitoring patients on UFH, and is not recommended for use with other Anti-Xa medications.Performed By: #### 3274-8 ####[facility] ([id number])[address], [address], [place] [address]TVXVUOYQZfu 11-09-2023 Magnesium [Mass/Vol]2.2 mg/dLNormal1.8-2.6ProClermont County HospitalComment on above:Performed By: #### TANYA, 2639-3, BMP, 2156-11, , 7-1 ####[facility] ([id number])[address], [address], [place] [address] Myoglobin [Mass/Vol]on 44-87-0691KRYPE VDIXNURNE54.7 ng/uMIcbabd22.4-105.7 [facility] HospitalComment on above:Performed By: #### 2157-6, 9-3 ####[facility] ([id number])[address], [address], [place] [address]DZLNB HFFMAIAUR40.7 ng/jSFefzkx69.4-105.7Clermont County HospitalComment on above:Performed By: #### CBC, 2639-3, BMP, 2156-11, , 2776-1 ####[facility] ([id number])[address], [address] [place] [address] PHOSPHORUSon 29-34-0063Qfszaxekx [Mass/Vol]4.4 mg/dLNormal2.4-4.9ProClermont County HospitalComment on above:Performed By: #### TANYA, 2639-3, BMP, 2156-11, , 7-1 ####[facility] ([id number])[address], [address], [place] [address]SMQAP METABOLIC PANLon 66-96-8253Zhkoa gap [Moles/Vol]9 mmol/LNormal5-15ProClermont County HospitalComment on above:Performed By: #### PINR #### [facility] ([id number]) [address], [address] [place], [place] [address]Ggmjnek [Mass/Vol]8.4 mg/dLLow8.5-10.5PSelect Medical Specialty [facility] [place] Comment on above:Performed By: #### PINR #### [facility] ([id number]) [address], [address] [place], [place] [address]Tbaafsag [Moles/Vol]106 mmol/KEbxmag32-345IkmQchqng [place] HospitalComment on above:Performed By: #### PINR #### [facility] ([id number]) [address], [address] [place], [place] [address]XL1 [Moles/Vol]24 mmol/BFfwiry93-93LvdXfsaqlSelect Medical [facility] [place] Comment on above:Performed By: #### PINR #### [facility] ([id number]) [address], [address] [place], [place] [address]Mxmkfhepul [Mass/Vol]1.30 mg/dLNormal0.60-1.30ProClermont County HospitalComment on above:Result Comment: METHOD TRACEABLE TO IDMS STANDARD Performed By: #### PINR #### [facility] ([id number]) [address] [place], [place] [address]OSE/1.73 sq M.predicted among non-blacks MDRD (S/P/Bld) [Vol rate/Area]64 mL/min/{1.73_m2}Normal>59ProClermont County HospitalComment on above: Result Comment: Reported eGFR is based on the CKD-EPI 2020 equation that does not use a race coefficient.Performed By: #### PINR #### [facility] ([id number]) [address], [address] [place], [place] [address]Vzoufox [Mass/Vol]163 mg/lEGynl58-74VxnZldxzpClermont County Hospital Comment on above:Performed By: #### PINR #### [facility] ([id number]) [address], [address] [place], [place] [address]Rjbpstpyy [Moles/Vol]4.1 mmol/LNormal3.5-5.0ProMedica [facility] HospitalComment on above:Performed By: #### PINR #### [facility] ([id number]) [address], [address] [place], [place] [address]Wxnjmn [Moles/Vol]139 mmol/CYvztgr354-960CboHjlqlo [place] HospitalComment on above:Performed By: #### PINR #### [facility] ([id number]) [address], [address] [place], [place] [address]Qsqj nitrogen [Mass/Vol]23 mg/dLNormal5-23ProSt. Francis Hospitalca [place] HospitalComment on above:Performed By: #### PINR #### [facility] ([id number]) [address], [address] [place], [place] [address]Ramni gap [Moles/Vol]9 mmol/LNormal5-15ProClermont County Hospital Hospital Comment on above:Performed By: #### CBC, BMP #### [facility] ([id number]) [address], [address] [place], [place] [address]Xuvdqji [Mass/Vol]8.8 mg/dLNormal8.5-10.5ProMedica [place] HospitalComment on above:Performed By: #### CBC, BMP #### [facility] ([id number]) [address], [address] [place], [place] [address]Wcunomry [Moles/Vol]104 mmol/PKacvqk26-840SlpBmiimy [place] HospitalComment on above:Performed By: #### TANYA, BMP #### [facility] ([id number]) [address], [address] [place], [place] [address]JO1 [Moles/Vol]25 mmol/DOnuvty89-81UslKxallpSelect Medical [facility] [place] Comment on above:Performed By: #### TANYA, BMP #### [facility] ([id number]) [address], [address] [place], [place] [address]Sxredmtalv [Mass/Vol]1.70 mg/dLHigh0.60-1.30ProClermont County HospitalComment on above:Result Comment: METHOD TRACEABLE TO IDMS STANDARD Performed By: #### TANYA, BMP #### [facility] ([id number]) [address], [address] [place], [place] [address]PET/1.73 sq M.predicted among non-blacks MDRD (S/P/Bld) [Vol rate/Area]46 mL/min/{1.73_m2}Low>59ProClermont County HospitalComment on above: Result Comment: Reported eGFR is based on the CKD-EPI 2020 equation that does not use a race coefficient.Performed By: #### TANYA, BMP #### [facility] ([id number]) [address], [address] [place], [place] [address]Ezfdjfj [Mass/Vol]111 mg/pTZurk88-84DihBhhdjaClermont County Hospital Comment on above:Performed By: #### TANYA, BMP #### [facility] ([id number]) [address], [address] [place], [place] [address]Ytuxvlgol [Moles/Vol]3.8 mmol/LNormal3.5-5.0ProClermont County HospitalComment on above:Performed By: #### TANYA, BMP #### [facility] ([id number]) [address], [address] [place], [place] [address]Erbciz [Moles/Vol]138 mmol/XSvjtgv264-476XiqUeephr [place] HospitalComment on above:Performed By: #### CBC, BMP #### [facility] ([id number]) [address], [address] [place], [place] [address]Ipcu nitrogen [Mass/Vol]28 mg/dLHigh5-23ProMedica [place] HospitalComment on above:Performed By: #### CBC, BMP #### [facility] ([id number]) [address], [address] [place], [place] [address]HW [Catalytic activity/Vol]on 22-92-3284DST08 U/WEyybxg76-260 [facility] HospitalComment on above:Performed By: #### PINR #### [facility] ([id number]) [address], [facility] [address] [place], [place] [address]YIJQVFQA BLOOD COUNTon 41-98-4891Hwxgeggnerx distribution width (RBC) [Ratio]24.8 %High11.5-15.0ProMedica [facility] HospitalComment on above: Performed By: #### PINR #### [facility] ([id number]) [address], [address] [place], [place] [address]Vbcrwocwkq (Bld) [Volume fraction]29.3 %Wfq14-62MweQpbdaj [facility] HospitalComment on above:Performed By: #### PINR #### [facility] ([id number]) [address], [address] [place], [place] [address]Yuaphhfpxh (Bld) [Mass/Vol]9.6 g/dLLow13.0-17.0ProMedica [facility] HospitalComment on above:Performed By: #### PINR #### [facility] ([id number]) [address], [address] [place], [place] [address]KZC (RBC) [Entitic mass]24.9 jmVbp73-15EhwHglzrg [facility] Comment on above:Performed By: #### PINR #### [facility] ([id number]) [address], [address] [place] [address]CAUO (RBC) [Mass/Vol]32.7 g/ePXvktcr19-18UfaDjgjxe [place] HospitalComment on above:Performed By: #### PINR #### [facility] ([id number]) [address], [address] [place] [address]ZJP (RBC) [Entitic vol]76 sCSyn37-704FgjQotttkClermont County Hospital Comment on above:Performed By: #### PINR #### [facility] ([id number]) [address], [address] [place], [place] [address]Xlwntnmc mean volume (Bld) [Entitic vol]8.7 fLNormal7-12 [facility] HospitalComment on above:Performed By: #### PINR #### [facility] ([id number]) [address], [address] [place], [place] [address]Qudidaqnk (Bld) [#/Vol]169 10*3/uSBlycqt153-501ZusXgtcka [place] HospitalComment on above:Performed By: #### PINR #### [facility] ([id number]) [address], [address] [place] [address]VKA COUNT3.85 X10E12/LLow4.10-5.70[facility] Comment on above:Performed By: #### PINR #### [facility] ([id number]) [address], [address] [place], [place] [address]DNV (Bld) [#/Vol]13.5 10*3/uLHigh4.0-11.0[facility] HospitalComment on above:Performed By: #### PINR #### [facility] ([id number]) [address], [address] [place], [place] [address]Vfsmcgzknvc distribution width (RBC) [Ratio]25.2 %High11.5-15.0 [facility] HospitalComment on above:Performed By: #### CBC, BMP #### [facility] ([id number]) [address], [address] [place], [place] [address]Ubwmkvmmqm (Bld) [Volume fraction]33.0 %Mwh71-72YhhVecikk [place] HospitalComment on above:Performed By: #### CBC, BMP #### [facility] ([id number]) [address], [address] [place], [place] [address]Puidrprwwr (Bld) [Mass/Vol]10.8 g/dLLow13.0-17.0ProClermont County Hospital HospitalComment on above:Performed By: #### CBC, BMP #### [facility] ([id number]) [address], [address] [place], [place] [address]DYK (RBC) [Entitic mass]25.0 llOmq27-83EccPtlquvClermont County Hospital Comment on above:Performed By: #### CBC, BMP #### [facility] ([id number]) [address], [address] [place], [place] [address]IXFG (RBC) [Mass/Vol]32.8 g/sWMezggi17-65VcyCzizjm [place] HospitalComment on above:Performed By: #### CBC, BMP #### [facility] ([id number]) [address], [address] [place], [place] [address]YCJ (RBC) [Entitic vol]76 qEOgw80-410IasOhkcbzClermont County Hospital Comment on above:Performed By: #### CBC, BMP #### [facility] ([id number]) [address], [address] [place], [place] [address]Nuxbemvf mean volume (Bld) [Entitic vol]8.8 fLNormal7-12 [facility] HospitalComment on above:Performed By: #### CBC, BMP #### [facility] ([id number]) [address], [address] [place], [place] [address]Qcupiykkz (Bld) [#/Vol]172 10*3/kMRtdvbp058-575EzmLyceim [place] HospitalComment on above:Performed By: #### CBC, BMP #### [facility] ([id number]) [address], [address] [place] [address]TAI COUNT4.33 X10E12/LNormal4.10-5.70[facility] Comment on above:Performed By: #### CBC, BMP #### [facility] ([id number]) [address], [address] [place] [address]VKC (Bld) [#/Vol]9.3 10*3/uLNormal4.0-11.0ProClermont County Hospital HospitalComment on above:Performed By: #### CBC, BMP #### [facility] ([id number]) [address], [address] [place] [address]Eglucye Glucometer (BldC) [Mass/Vol]on 34-25-5857Xnbcjnk [Mass/Vol]162 mg/lRFvae24-20VjgQtdimf [facility] HospitalGlucose [Mass/Vol]96 mg/dL Hrozdf21-72AjwQqfort [facility] HospitalGlucose [Mass/Vol]142 mg/lIAtfk71-36 [facility] HospitalGlucose [Mass/Vol]114 mg/fBOqzq74-13HsqLvmdce [facility] HospitalLactate (P ekaterina) [Moles/Vol]on 80-50-6091QDPNYZZ W/REFLEX1.0 mmol/LNormal 0.4-2.0ProClermont County HospitalComment on above:Result Comment: Result did not trigger repeat Lactate, re-order if needed.Performed By: #### PINR #### [facility] ([id number]) [address], [address] [place] [address]YZYZBOGFHbc 92-90-0571Muabjmaig [Mass/Vol]1.7 mg/dLLow1.8-2.6 [facility]era [facility] HospitalComment on above:Performed By: #### PINR #### [facility] ([id number]) [address], [address] [place], [place] [address]Zsnckbemp [Mass/Vol]on 85-38-4078SUHWW DWOKTZUJH15.1 ng/mLNormal 17.4-105.7[facility] HospitalComment on above:Performed By: #### PINR #### [facility] ([id number]) [address], [address] [place], [place] [address]NRHKLSDPLKfp 32-50-0909Yfjedeowz [Mass/Vol]4.0 mg/dLNormal 2.4-4.9ProSt. Francis Hospitalca [place] HospitalComment on above:Performed By: #### PINR #### [facility] ([id number]) [address], [address] [place], [place] [address]GUFNQLE AND INRon 85-76-3777MVA Coag (PPP) [Relative time]1.3 {INR}High0.8-1.1ProMedMercer County Community Hospital HospitalComment on above:Performed By: #### PINR #### [facility] ([id number]) [address], [address] [place] [address]UM Coag (PPP) [Time]14.7 sHigh9.8-13.2PC[facility] Comment on above:Performed By: #### PINR #### [facility] ([id number]) [address], [address] [place], [place] [address]AQEBB CARDIACon 03-36-3365AKWEV'S TESTNormalProMedica [place]bring HospitalComment on above:Performed By: #### AFAB5 #### [facility] ([id number]) [address] [place], [place] [address]Qafa excess Calc (Bld) [Moles/Vol]0.1 mmol/LNormal0.0-2.0 [facility] HospitalComment on above:Performed By: #### AFAB5 #### [facility] ([id number]) [address] [place], [place] [address]Ddkt esabdswcfqq36.6 [degF]Yqqdna10.0[facility] Comment on above:Performed By: #### AFAB5 #### [facility] ([id number]) [address] [place], [place] [address]Bglpxto [Mass/Vol]117 mg/yNOfek09-74CjsRcjrjtClermont County Hospital Comment on above:Performed By: #### AFAB5 #### [facility] ([address] [place] [address]) [address] [place], [place] [address]TTL5 (Bld) [Moles/Vol]24.8 mmol/HAtktvh25-46ZzgFimnshClermont County HospitalComment on above:Performed By: #### AFAB5 #### [facility] ([id number]) [address] [place], [place] [address]Glfkzfheeb (Bld) [Volume fraction]31 %Hmm14-18DrvLyipxxClermont County HospitalComment on above:Performed By: #### AFAB5 #### [facility] ([id number]) [address] [place], [place] [address]Zrigxzlrur (Bld) [Mass/Vol]10.2 g/dLLow13.0-17.0ProClermont County HospitalComment on above:Performed By: #### AFAB5 #### [facility] ([id number]) [address] [place], [place] [address]OJBR. O2 CONC.100 %NormalProClermont County HospitalComment on above:Performed By: #### AFAB5 #### [facility] ([id number]) [address] [place], [place] [address]KPIVPEX CALCIUM4.8 mg/dLNormal4.5-5.3PSelect Medical Specialty [facility] [place] Comment on above:Performed By: #### AFAB5 #### [facility] ([id number]) [address] [place], [place] [address]Hotvlh (Bld) [Partial pressure]167 mm[Hg]Fgwp81-990LvoSvfrls [facility] HospitalComment on above:Performed By: #### AFAB5 #### [facility] ([id number]) [address] [place], [place] [address]Myfbso saturation in Qxuwz553.8 %Normal>90[facility]ica [facility] HospitalComment on above:Performed By: #### AFAB5 #### [facility] ([id number]) [address] [place], [place] [address]NJC272.7 HMOWMabpuw64-39LdiAfxxxf [facility] HospitalComment on above:Performed By: #### AFAB5 #### [facility] ([id number]) [address] [place], [place] [address]xI (Bld)7.404 [pH]Normal7.350-7.450[facility] Comment on above:Performed By: #### AFAB5 #### [facility] ([id number]) [address] [place], [place] [address]Hchsuktmn [Moles/Vol]3.8 mmol/LNormal3.5-5.0[facility] HospitalComment on above:Performed By: #### AFAB5 #### [facility] ([id number]) [address] [place], [place] [address]MNCNNO SITEALINENormalProMedica Marina HospitalComment on above: Performed By: #### AFAB5 #### [facility] ([id number]) [address] [place], [place] [address]VVJLRD TYPEArterialNormalProMedica Marina HospitalComment on above:Performed By: #### AFAB5 #### [facility] ([id number]) [address] [place], [place] [address]CCZRA CARDIAC W/ NAon 23-33-9014TDTUL'S TESTNormalProMedica Sebring HospitalComment on above:Performed By: #### PINR #### [facility] ([id number]) [address], [address] [place], [place] [address]Undt excess Calc (Bld) [Moles/Vol]0.2 mmol/LNormal0.0-2.0 [facility] HospitalComment on above:Performed By: #### PINR #### [facility] ([id number]) [address], [address] [place], [place] [address]Bxss ygezkjaidyo70.6 [degF]Xczdof90.0[facility] Comment on above:Performed By: #### PINR #### [facility] ([id number]) [address] [place], [place] [address]Btuopdg [Mass/Vol]125 mg/pTEbtk38-34QqtZqaviyClermont County Hospital Comment on above:Performed By: #### PINR #### [facility] ([id number]) [address] [place], [place] [address]ANG7 (Bld) [Moles/Vol]25.3 mmol/DXyvfzp72-93RhzHbfyjg [place] HospitalComment on above:Performed By: #### PINR #### [facility] ([id number]) [address], [address] [place], [place] [address]Trmixsthbm (Bld) [Volume fraction]31 %Afl95-29OksFtxwwa [place] HospitalComment on above:Performed By: #### PINR #### [facility] ([id number]) [address], [address] [place], [place] [address]Cwvzjmhpga (Bld) [Mass/Vol]10.0 g/dLLow13.0-17.0ProClermont County Hospital HospitalComment on above:Performed By: #### PINR #### [facility] ([id number]) [address], [address] [place], [place] [address]RFJD. O2 CONC.50 %NormalProMedica Sebring HospitalComment on above:Performed By: #### PINR #### [facility] ([id number]) [address], [address] [place], [place] [address]XXSWUVX CALCIUM4.7 mg/dLNormal4.5-5.3[facility] Comment on above:Performed By: #### PINR #### [facility] ([id number]) [address], [address] [place], [place] [address]Yfrilx (Bld) [Partial pressure]131 mm[Hg]Aect23-133UugGbkimp [facility] HospitalComment on above:Performed By: #### PINR #### [facility] ([id number]) [address], [address] [place], [place] [address]Kzxdbd saturation in Blood99.9 %Normal>90[facility] HospitalComment on above:Performed By: #### PINR #### [facility] ([id number]) [address], [address] [place], [place] [address]TYO080.7 MUYPLnsgde94-83HusQxlfty [facility] HospitalComment on above:Performed By: #### PINR #### [facility] ([id number]) [address], [address] [place], [place] [address]vM (Bld)7.381 [pH]Normal7.350-7.450ProSt. Francis Hospitalca [facility] Comment on above:Performed By: #### PINR #### [facility] ([id number]) [address], [address] [place], [place] [address]Cpnbgauwt [Moles/Vol]3.7 mmol/LNormal3.5-5.0[facility] HospitalComment on above:Performed By: #### PINR #### [facility] ([id number]) [address] [place], [place] [address]UKNDRL SITEALINENormalProMedica Marina HospitalComment on above: Performed By: #### PINR #### [facility] ([id number]) [address] [place], [place] [address]JBLCDF TYPEArterialNormalProMedica Marina HospitalComment on above:Performed By: #### PINR #### [facility] ([id number]) [address] [place], [place] [address]Nxehsz [Moles/Vol]139 mmol/MJfeopt524-418YiqKphwom [facility] HospitalComment on above:Performed By: #### PINR #### [facility] ([id number]) [address], [address] [place], [place] [address]fSGN Coag (PPP) [Time]on 20-68-8121pDWZ Coag (Bld) [Time]30 s Umoxab72-82YbpBjtvdd [facility] HospitalComment on above:Performed By: #### PINR #### [facility] ([id number]) [address] [place], [place] [address]Pcjjodj Glucometer (BldC) [Mass/Vol]on 41-58-3360Hgpyelr [Mass/Vol]150 mg/mEUiyo30-20EslZvsrbs [facility] HospitalGlucose [Mass/Vol]58 mg/dL Oft69-33ZkrNyjngz [facility] HospitalPOC ZNYP1sj 53-86-3529Fpjzdioc [Moles/Vol]98 mmol/MPmcfcb75-977FdmQlmsec [facility] HospitalComment on above:Performed By: #### IELGBC #### [facility] ([id number]) [address] [place], [place] [address]ZF7 [Moles/Vol]31 mmol/WHkzsny44-11RxsZsgpll [facility] Comment on above:Performed By: #### IELGBC #### [facility] ([id number]) [address] [place], [place] [address]Ckqzontgsr [Mass/Vol]1.9 mg/dLHigh0.7-1.2PSelect Medical Specialty Hospital - Southeast OhioComment on above:Result Comment: METHOD TRACEABLE TO IDMS STANDARD Performed By: #### IELGBC #### [facility] ([id number]) [address] [place], [place] [address]WQT/1.73 sq M.predicted among non-blacks MDRD (S/P/Bld) [Vol rate/Area]40 mL/min/{1.73_m2}Low>59[facility] HospitalComment on above: Result Comment: Reported eGFR is based on the CKD-EPI 2020 equation that does not use a race coefficient.Performed By: #### IELGBC #### [facility] ([id number]) [address] [place], [place] [address]Adlpelm [Mass/Vol]72 mg/pTIrhbqq83-10LqgCjafbg [facility] Comment on above:Performed By: #### IELGBC #### [facility] ([id number]) [address] [place], [place] [address]Hckhlnpzl [Moles/Vol]3.6 mmol/LNormal3.5-5.0ProClermont County HospitalComment on above:Performed By: #### IELGBC #### [facility] ([id number]) [address] [place], [place] [address]Znhzgi [Moles/Vol]139 mmol/ERekdfp410-967RprQdkoah [place] HospitalComment on above:Performed By: #### IELGBC #### [facility] ([id number]) [address] [place], [place] [address]Eltr nitrogen [Mass/Vol]31 mg/dLHigh6-23ProClermont County HospitalComment on above:Performed By: #### IELGBC #### [facility] ([id number]) [address] [place], [place] [address]LJFIGBS AND INRon 90-26-2373LCA Coag (PPP) [Relative time]1.3 {INR}High0.8-1.1PSelect Medical Specialty Hospital - Southeast OhioComment on above:Performed By: #### PINR #### [facility] ([id number]) [address], [address] [place], [place] [address]FS Coag (PPP) [Time]14.5 sHigh9.8-13.2PSelect Medical Specialty [facility] [place] Comment on above:Performed By: #### PINR #### [facility] ([id number]) [address], [address] [place], [place] [address]JWE 12 [place] 98-67-2648ManutdzmfqMercy Memorial Hospital Work Phone: Consent for Treatmenton 66-84-6644Hjkzfro for [id number]#1.00TIFFWyandot Memorial HospitalHeart and Vascular Office/Clinic Noteon 79-71-5907Yksei and Vascular Office/Clinic NoteChief Complaint F/U Testing [...] 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, right leg) [...] 0.4 mg= 1 tab(s), SubLingual, q5min, PRN Marion 325 mg-5 mg oral tablet, 1 tab(s), [...] BID, 11 refills (more content not included)...NormalFisher New Kent Medical CenterComment on above:Result Comment: Electronically Signed By: Mike Montes MD\.br\Date and Time Signed: 10/23/23 10:35 EDTUS PVR Lower EXT Complete Bilaton 56-73-1993YI PVR Lower EXT Complete BilatExam Date/Time: 10/19/2023 [...] Christiano Guillen MD Transcribed by: HASEEB Technologist: [facility] Anderson HospitalCHEMISTRY Ordered By: SYSTEM SYSTEM on 92-02-9041Hcbdogqhhz [Mass/Vol]1.6 mg/dLHigh0.5 - 1.3 mg/dLRemisol GvrawHDR13 mL/min/1.73 m2Low>=59mL/min/1.73 h0Mihikgq ChemCTA Abd Aorto-bilat/ iliofemoral runoffon 58-99-0153NYT Abd Aorto-bilat/ iliofemoral runoffExam Date/Time: 10/19/2023 15:12 [...] Contrast: Isovue 370 Contrast amount in ml's: 150NoKettering Health MiamisburgConsent for Treatmenton 31-19-5070Nsfoqnb for Treatment [id number]#1.00TIFTrinity Health SystemCreatinineon 92-15-7784Eayeepcwca [Mass/Vol]1.6 mg/dLHigh0.5-1.3Fisher [facility] CenterComment on above:Performed By: #### [id number] #### [facility] [address], [place] [address]Yhvgizhmj Orderon 66-09-4777Ktrjocdit Order [id number]#1.00TIFTrinity Health SystemeGFRon 81-79-2120lBYY12 mL/min/1.73 m2Low>=59[facility] Comment on above:Order Comment: Order added by Discern Expert.Performed By: #### [id number] #### [facility] [address] [place], [place] [address]Mnkuoeg Progress Noteon 46-24-0297Ygunxvs Progress Note [id number]#1.00TIFFNormFormerly Albem[facility]le Hospitalthong [facility] CenterPhysician Orderon 55-15-1629Wquultips Order [id number]#1.00TIFFNoFormerly [facility] Healththong [facility] CenterPhysician [id number]#1.00TIFKristiadebayo Chat[place] [facility] CenterBasophils Auto (Bld) [#/Vol]on 81-74-4889Odqwyqjig (Bld) [#/Vol]0.0 10 3/uL0.0-0.1FMarion HospitalBasophils/100 WBC Auto (Bld)on 29-60-6204Mkpnwchzb/100 WBC (Bld)0.3 %0.2-2.0[facility] CenterEosinophils/100 WBC Auto (Bld)on 29-81-2124Riibasymmhu/100 WBC (Bld)1.9 %0.9-7.0[facility] CenterErythrocyte distribution width Auto (RBC) [Ratio]on 76-10-5087Dlfiehdvlqd distribution width (RBC) [Ratio]19.9 %High11.0-15.0[facility] CenterEstimated glomerular filtration rate (GFR) non- Americanon 85-05-8700LDI/1.73 sq M.predicted among non- blacks MDRD (S/P/Bld) [Vol rate/Area]42 mL/min/{1.73_m2}Low>=60[facility] CenterGlobulin Calc (S) [Mass/Vol]on 31-28-2639Ulwumxzv (S) [Mass/Vol]4.3 g/dLSt. Mary'S Medical CenterHematocrit Auto (Bld) [Volume fraction]on 53-19-9589Dvepuaylqf (Bld) [Volume fraction]28.3 %Low42.0-54.[address] [facility] CenterHemoglobin [Mass/volume] in Bloodon 10-06-2023 Hemoglobin (Bld) [Mass/Vol]8.4 g/dLLow14.0-18.0[facility] - Chemistry and Chemistry - challengeon 02-23-9671Rslflpr [Mass/Vol] 2.1 g/dLLow3.4-5.0[facility] CenterALP [Catalytic activity/Vol] 133 U/YPpzv24-740GjonipjgfSt. Mary'S Medical CenterALT [Catalytic activity/Vol]18 U/N52-39XeaaxyxgqSt. Mary'S Medical CenterAST [Catalytic activity/Vol]20 U/L15-37 [facility] CenterBilirubin [Mass/Vol]0.3 mg/dL0.2-1.0[facility] CenterCalcium [Mass/Vol]9.4 mg/dL8.5-10.1FMarion HospitalChloride [Moles/Vol]103 mmol/W33-961EfxsipbbzSt. Mary'S Medical CenterCO2 [Moles/Vol]23.7 mmol/L21.0-32.0[facility] Creatinine [Mass/Vol]1.67 mg/dLHigh0.70-1.30[facility] GFR/1.73 sq M.predicted MDRD (S/P/Bld) [Vol rate/Area]52 mL/min/{1.73_m2}Low>=60 [facility] CenterGlucose [Mass/Vol]91 mg/aL20-160UcreawownSt. Mary'S Medical CenterMagnesium [Mass/Vol]1.6 mg/dLLow1.8-2.4FMarion HospitalPotassium [Moles/Vol]4.8 mmol/L3.5-5.1FMarion HospitalProtein [Mass/Vol]6.4 g/dL6.4-8.2FTriHealth Good Samaritan Hospitalodium [Moles/Vol]136 mmol/R153-109QsjtblvseSt. Mary'S Medical CenterUrea nitrogen [Mass/Vol]29.0 mg/dLHigh7.0-18.0[facility] CenterUrea nitrogen/Creatinine [Mass ratio]17.4 mg/mgSt. Mary'S [facility] Laboratory - Hematology and Cell countson 32-07-0462IPD (Bld) [Velocity]mm/hHigh <=20[facility] CenterImmature granulocytes/100 WBC (Bld)1.5 % High0.0-0.5FMarion HospitalLeukocytes [#/volume] corrected for nucleated erythrocytes in Blood by Automated counon 46-55-0738YWJ corrected for nucl RBC Auto (Bld) [#/Vol]11.6 10 3/uLHigh4.0-11.0[facility] CenterLymphocytes Auto (Bld) [#/Vol]on 61-53-2056Xrrogscwpvo (Bld) [#/Vol]1.5 10 3/uL1.2-3.8[facility] CenterLymphocytes/100 WBC Auto (Bld)on 06-25-4819Cvqgrjfzojv/100 WBC (Bld)12.9 %Low20.5-60.0[facility] HospitalH Auto (RBC) [Entitic mass]on 05-41-6551EDI (RBC) [Entitic mass]22.5 pg Low25.9-34.0[facility] CenterMCHC Auto (RBC) [Mass/Vol]on 19-55-4765AWDY (RBC) [Mass/Vol]29.7 g/dLLow29.9-35.2FMarion HospitalMCV Auto (RBC) [Entitic vol]on 42-98-9046HXP (RBC) [Entitic vol]75.9 fLLow 80.0-94.0[facility] CenterMonocytes Auto (Bld) [#/Vol]on 15-63-0476Quimdbddx (Bld) [#/Vol]1.3 10 3/uLHigh0.3-0.8[facility] CenterMonocytes/100 WBC Auto (Bld)on 77-18-2705Kvxlzijzg/100 WBC (Bld) 10.9 %1.7-12.0[facility] CenterNeutrophils Auto (Bld) [#/Vol]on 94-46-9152Tilzsllnuxu (Bld) [#/Vol]8.4 10 3/uLHigh1.4-6.5FMarion HospitalNeutrophils/100 WBC Auto (Bld)on 04-79-3829Shliilernmv/100 WBC (Bld)72.5 %43.0-75.0[facility] CenterNo Panel Informationon 29-91-0773Mtkibcnahbz # (Auto)0.2 10 3/uL0.0-0.7FMarion HospitalImmature Granulocyte # (Auto)0.17 10 3/uLHigh0.00-0.03[facility] CenterPlatelet mean volume Auto (Bld) [Entitic vol]on 87-85-2197Jlqstahs mean volume (Bld) [Entitic vol]10.3 fL9.5-13.5FMarion Hospital Platelets Auto (Bld) [#/Vol]on 80-23-5691Dqiknbrnr (Bld) [#/Vol]233 10 3/uL 150-450St[facility] CenterRBC Auto (Bld) [#/Vol]on 68-44-5220CCS (Bld) [#/Vol]3.73 10 6/uLLow4.70-6.10[facility] Centererum or plasma albumin/globulin mass ratioon 70-17-4267Vtskxmh/Globulin [Mass ratio]0.5 {ratio}[facility] Centererum or plasma anion gap determination on 24-66-2626Yxtpb gap [Moles/Vol]14.1 mmol/LFMarion Hospital Basophils Auto (Bld) [#/Vol]on 10-15-0331Nhexzajil (Bld) [#/Vol]0.1 10 3/uL 0.0-0.1FMarion HospitalBasophils/100 WBC Auto (Bld)on 55-97-2924Gcfbigfql/100 WBC (Bld)0.6 %0.2-2.0[facility] Eosinophils/100 WBC Auto (Bld)on 55-36-2728Eaeirfbkgby/100 WBC (Bld)3.3 %0.9-7.0 [facility] CenterErythrocyte distribution width Auto (RBC) [Ratio]on 30-84-1375Qznwvtqmlrr distribution width (RBC) [Ratio]19.6 %High 11.0-15.0[facility] CenterEstimated glomerular filtration rate (GFR) non- Americanon 19-75-1932OOW/1.73 sq M.predicted among non-blacks MDRD (S/P/Bld) [Vol rate/Area]41 mL/min/{1.73_m2}Low>=60[facility] CenterGlobulin Calc (S) [Mass/Vol]on 41-13-6731Zuguscpq (S) [Mass/Vol] 4.7 g/dLSt. Mary'S Medical CenterHematocrit Auto (Bld) [Volume fraction] on 59-07-5683Jqqeqlkxit (Bld) [Volume fraction]29.9 %Low42.0-54.0[facility] CenterHemoglobin [Mass/volume] in Bloodon 82-50-9122Qrmeeljiem (Bld) [Mass/Vol]9.0 g/dLLow14.0-18.0[facility] CenterLaboratory - Chemistry and Chemistry - challengeon 18-98-6880Jzdnbkj [Mass/Vol]2.2 g/dLLow 3.4-5.0[facility] CenterALP [Catalytic activity/Vol]140 U/LHigh 46-116[facility] CenterALT [Catalytic activity/Vol]18 U/L16-63 [facility] CenterAST [Catalytic activity/Vol]22 U/L15-37 [facility] CenterBilirubin [Mass/Vol]0.5 mg/dL0.2-1.0[facility] CenterCalcium [Mass/Vol]9.2 mg/dL8.5-10.1FMarion HospitalChloride [Moles/Vol]100 mmol/E24-601XoostfzktSt. Mary'S Medical CenterCO2 [Moles/Vol]22.6 mmol/L21.0-32.0[facility] Creatinine [Mass/Vol]1.74 mg/dLHigh0.70-1.30[facility] GFR/1.73 sq M.predicted MDRD (S/P/Bld) [Vol rate/Area]49 mL/min/{1.73_m2}Low>=60 [facility] CenterGlucose [Mass/Vol]162 mg/uWEpwn99-495YqafgyyzuSt. Mary'S Medical CenterMagnesium [Mass/Vol]1.7 mg/dLLow1.8-2.4FMarion HospitalPotassium [Moles/Vol]5.3 mmol/LHigh3.5-5.1FMarion HospitalProtein [Mass/Vol]6.9 g/dL6.4-8.2FMarion Hospital Sodium [Moles/Vol]133 mmol/HHwz272-914WeenmxnscSt. Mary'S Medical CenterUrea nitrogen [Mass/Vol]30.0 mg/dLHigh7.0-18.0[facility] CenterUrea nitrogen/Creatinine [Mass ratio]17.2 mg/mgSt. [facility]'S [facility] Center Laboratory - Hematology and Cell countson 24-28-4731SHO (Bld) [Velocity]130 mm/h High<=20[facility] CenterImmature granulocytes/100 WBC (Bld)1.3 %High0.0-0.5FMarion HospitalLeukocytes [#/volume] corrected for nucleated erythrocytes in Blood by Automated counon 29-82-4960MYV corrected for nucl RBC Auto (Bld) [#/Vol]12.6 10 3/uLHigh4.0-11.0[facility] CenterLymphocytes Auto (Bld) [#/Vol]on 47-45-8506Viznwatmztt (Bld) [#/Vol]1.3 10 3/uL1.2-3.8[facility] CenterLymphocytes/100 WBC Auto (Bld)on 47-23-6487Zuneuglkpsa/100 WBC (Bld)10.1 %Low20.5-60.0[facility] CenterMCH Auto (RBC) [Entitic mass]on 92-79-3679NQM (RBC) [Entitic mass]22.7 pg Low25.9-34.0[facility] CenterMCHC Auto (RBC) [Mass/Vol]on 42-66-5460NZCO (RBC) [Mass/Vol]30.1 g/dL29.9-35.2FMarion HospitalMCV Auto (RBC) [Entitic vol]on 15-04-9398TSY (RBC) [Entitic vol]75.3 fLLow 80.0-94.0[facility] CenterMonocytes Auto (Bld) [#/Vol]on 40-26-9734Pdtysdmqc (Bld) [#/Vol]1.4 10 3/uLHigh0.3-0.8[facility] CenterMonocytes/100 WBC Auto (Bld)on 51-43-7252Igayjavgf/100 WBC (Bld) 10.9 %1.7-12.0[facility] CenterNeutrophils Auto (Bld) [#/Vol]on 89-48-2826Ynfkslbbubr (Bld) [#/Vol]9.3 10 3/uLHigh1.4-6.5FMarion HospitalNeutrophils/100 WBC Auto (Bld)on 90-89-3315Wgrdfudeuzf/100 WBC (Bld)73.8 %43.0-75.0[facility] CenterNo Panel Informationon 12-47-4001Zvpvnejcljm # (Auto)0.4 10 3/uL0.0-0.7FMarion HospitalImmature Granulocyte # (Auto)0.16 10 3/uLHigh0.00-0.03[facility] CenterPlatelet mean volume Auto (Bld) [Entitic vol]on 08-85-8026Fpvzlwdy mean volume (Bld) [Entitic vol]11.3 fL9.5-13.5FMarion Hospital Platelets Auto (Bld) [#/Vol]on 00-70-4480Ecabnliud (Bld) [#/Vol]203 10 3/uL 150-450St[facility] CenterRBC Auto (Bld) [#/Vol]on 73-12-5463ZTY (Bld) [#/Vol]3.97 10 6/uLLow4.70-6.10[facility] Centererum or plasma albumin/globulin mass ratioon 95-47-8860Kbebmpk/Globulin [Mass ratio]0.5 {ratio}[facility] Centererum or plasma anion gap determination on 96-35-4614Rfkob gap [Moles/Vol]15.7 mmol/LFirelands Regional Medical Center Basophils Auto (Bld) [#/Vol]on 06-57-2171Yocaqzvbo (Bld) [#/Vol]0.1 10 3/uL 0.0-0.1FMarion HospitalBasophils/100 WBC Auto (Bld)on 01-38-6875Erazlipsb/100 WBC (Bld)0.5 %0.2-2.0[facility] Eosinophils/100 WBC Auto (Bld)on 29-36-0847Iubacqztver/100 WBC (Bld)3.6 %0.9-7.0 [facility] CenterErythrocyte distribution width Auto (RBC) [Ratio]on 92-31-3125Phuoegvhour distribution width (RBC) [Ratio]19.6 %High 11.0-15.0[facility] CenterEstimated glomerular filtration rate (GFR) non- Americanon 55-82-4726JWT/1.73 sq M.predicted among non-blacks MDRD (S/P/Bld) [Vol rate/Area]44 mL/min/{1.73_m2}Low>=60[facility] CenterGlobulin Calc (S) [Mass/Vol]on 56-53-0337Ukszcroh (S) [Mass/Vol] 4.3 g/dLSt. Mary'S Medical CenterHematocrit Auto (Bld) [Volume fraction] on 58-07-6263Fpfwkgcjbk (Bld) [Volume fraction]26.8 %Low42.0-54.0[facility] CenterHemoglobin [Mass/volume] in Bloodon 65-51-2050Kchlhgvden (Bld) [Mass/Vol]7.9 g/dLLow14.0-18.0[facility] CenterLaboratory - Chemistry and Chemistry - challengeon 68-13-6587Zlsvwpm [Mass/Vol]1.9 g/dLLow 3.4-5.0[facility] CenterALP [Catalytic activity/Vol]135 U/LHigh 46-116[facility] CenterALT [Catalytic activity/Vol]16 U/L16-63 [facility] CenterAST [Catalytic activity/Vol]19 U/L15-37 [facility] CenterBilirubin [Mass/Vol]0.4 mg/dL0.2-1.0[facility] CenterCalcium [Mass/Vol]7.8 mg/dLLow8.5-10.1FMarion HospitalChloride [Moles/Vol]102 mmol/H61-639OicnpzsakSt. Mary'S Medical CenterCO2 [Moles/Vol]25.0 mmol/L21.0-32.0[facility] Creatinine [Mass/Vol]1.61 mg/dLHigh0.70-1.30[facility] GFR/1.73 sq M.predicted MDRD (S/P/Bld) [Vol rate/Area]54 mL/min/{1.73_m2}Low>=60 [facility] CenterGlucose [Mass/Vol]136 mg/tZHogs24-138KyrcycmlfSt. Mary'S Medical CenterMagnesium [Mass/Vol]1.7 mg/dLLow1.8-2.4FMarion HospitalPotassium [Moles/Vol]5.1 mmol/L3.5-5.1FMarion HospitalProtein [Mass/Vol]6.2 g/dLLow6.4-8.2FMarion Hospital Sodium [Moles/Vol]134 mmol/ZHsy353-714KwuedzojoSt. Mary'S Medical CenterUrea nitrogen [Mass/Vol]25.0 mg/dLHigh7.0-18.0[facility] CenterUrea nitrogen/Creatinine [Mass ratio]15.5 mg/mgSt. [facility]'S [facility] Center Laboratory - Hematology and Cell countson 00-54-3350RAP (Bld) [Velocity]117 mm/h High<=20[facility] CenterImmature granulocytes/100 WBC (Bld)0.9 %High0.0-0.5FMarion HospitalLeukocytes [#/volume] corrected for nucleated erythrocytes in Blood by Automated counon 02-00-0794HJR corrected for nucl RBC Auto (Bld) [#/Vol]11.5 10 3/uLHigh4.0-11.0[facility] CenterLymphocytes Auto (Bld) [#/Vol]on 00-69-2188Pxuwcezstsn (Bld) [#/Vol]1.3 10 3/uL1.2-3.8[facility] CenterLymphocytes/100 WBC Auto (Bld)on 45-34-2287Tivmnogvvcx/100 WBC (Bld)10.9 %Low20.5-60.0[facility] HospitalH Auto (RBC) [Entitic mass]on 00-02-4565LTA (RBC) [Entitic mass]22.4 pg Low25.9-34.0[facility] HospitalHC Auto (RBC) [Mass/Vol]on 71-34-4151XHYL (RBC) [Mass/Vol]29.5 g/dLLow29.9-35.2FSt. Rita's HospitalV Auto (RBC) [Entitic vol]on 13-83-0817QSW (RBC) [Entitic vol]75.9 fLLow 80.0-94.0[facility] CenterMonocytes Auto (Bld) [#/Vol]on 34-92-7347Zbytuuqpa (Bld) [#/Vol]1.4 10 3/uLHigh0.3-0.8[facility] CenterMonocytes/100 WBC Auto (Bld)on 62-46-1337Ehxqigkjt/100 WBC (Bld) 12.4 %High1.7-12.0[facility] CenterNeutrophils Auto (Bld) [#/Vol]on 41-96-8852Wcosyeijqjj (Bld) [#/Vol]8.3 10 3/uLHigh1.4-6.5FMarion HospitalNeutrophils/100 WBC Auto (Bld)on 10-04-2023 Neutrophils/100 WBC (Bld)71.7 %43.0-75.0[facility] CenterNo Panel Informationon 27-12-6735Actqpkskagg # (Auto)0.4 10 3/uL0.0-0.7FMarion HospitalImmature Granulocyte # (Auto)0.10 10 3/uLHigh0.00-0.03 [facility] CenterPlatelet mean volume Auto (Bld) [Entitic vol]on 08-89-8108Jjqmvqcg mean volume (Bld) [Entitic vol]11.5 fL9.5-13.5FMarion HospitalPlatelets Auto (Bld) [#/Vol]on 18-60-2181Wwlzubjpy (Bld) [#/Vol]154 10 3/aW766-549OomrpqzjjSt. Mary'S Medical CenterRBC Auto (Bld) [#/Vol] on 18-35-0671ISN (Bld) [#/Vol]3.53 10 6/uLLow4.70-6.10[facility] Centererum or plasma albumin/globulin mass ratioon 96-44-1386Nkkwxiy/Globulin [Mass ratio]0.4 {ratio}[facility] Centererum or plasma anion gap determinationon 49-16-5421Ynaxm gap [Moles/Vol]12.1 mmol/LFMarion HospitalBasophils Auto (Bld) [#/Vol]on 40-19-0909Qmbvicakc (Bld) [#/Vol] 0.1 10 3/uL0.0-0.1FMarion HospitalBasophils/100 WBC Auto (Bld) on 01-90-4769Tmrqojzpd/100 WBC (Bld)0.7 %0.2-2.0[facility] CenterEosinophils/100 WBC Auto (Bld)on 96-92-0654Vmqmentitmq/100 WBC (Bld)2.7 % 0.9-7.0[facility] CenterErythrocyte distribution width Auto (RBC) [Ratio]on 67-35-0151Gdmlxdtixon distribution width (RBC) [Ratio]19.2 %High 11.0-15.0[facility] CenterEstimated glomerular filtration rate (GFR) non- Americanon 45-41-2628PPR/1.73 sq M.predicted among non-blacks MDRD (S/P/Bld) [Vol rate/Area]46 mL/min/{1.73_m2}Low>=60[facility] CenterGlobulin Calc (S) [Mass/Vol]on 38-21-0902Iomriayx (S) [Mass/Vol] 4.1 g/dLSt. Mary'S Medical CenterHematocrit Auto (Bld) [Volume fraction] on 40-08-3505Qwkeukkota (Bld) [Volume fraction]26.4 %Low42.0-54.0[facility] CenterHemoglobin [Mass/volume] in Bloodon 64-90-6051Mzjuujvdma (Bld) [Mass/Vol]8.1 g/dLLow14.0-18.0[facility] CenterLaboratory - Chemistry and Chemistry - challengeon 41-57-8421Qjxzjom [Mass/Vol]1.9 g/dLLow 3.4-5.0[facility] CenterALP [Catalytic activity/Vol]140 U/LHigh 46-116[facility] CenterALT [Catalytic activity/Vol]17 U/L16-63 [facility] CenterAST [Catalytic activity/Vol]21 U/L15-37 [facility] CenterBilirubin [Mass/Vol]0.3 mg/dL0.2-1.0[facility] CenterCalcium [Mass/Vol]6.7 mg/dLLow8.5-10.1FMarion HospitalChloride [Moles/Vol]101 mmol/T87-167BvtrcscerSt. Mary'S Medical CenterCO2 [Moles/Vol]23.9 mmol/L21.0-32.0[facility] Creatinine [Mass/Vol]1.57 mg/dLHigh0.70-1.30[facility] GFR/1.73 sq M.predicted MDRD (S/P/Bld) [Vol rate/Area]55 mL/min/{1.73_m2}Low>=60 [facility] CenterGlucose [Mass/Vol]142 mg/sNKmsj62-059BuysxplnhSt. Mary'S Medical CenterMagnesium [Mass/Vol]1.3 mg/dLLow1.8-2.4FMarion HospitalPotassium [Moles/Vol]4.8 mmol/L3.5-5.1FMarion HospitalProtein [Mass/Vol]6.0 g/dLLow6.4-8.2FMarion Hospital Sodium [Moles/Vol]134 mmol/PJmf106-233XmyylkvxzSt. Mary'S Medical CenterUrea nitrogen [Mass/Vol]23.0 mg/dLHigh7.0-18.0[facility] CenterUrea nitrogen/Creatinine [Mass ratio]14.6 mg/mgSt. Mary'S [facility] Center Laboratory - Hematology and Cell countson 26-49-9034WBH (Bld) [Velocity]mm/hHigh <=20[facility] CenterImmature granulocytes/100 WBC (Bld)1.0 % High0.0-0.5FMarion HospitalLeukocytes [#/volume] corrected for nucleated erythrocytes in Blood by Automated counon 05-61-2375NKL corrected for nucl RBC Auto (Bld) [#/Vol]11.6 10 3/uLHigh4.0-11.0[facility] CenterLymphocytes Auto (Bld) [#/Vol]on 29-83-1814Ktuizjcyoil (Bld) [#/Vol]1.4 10 3/uL1.2-3.8[facility] CenterLymphocytes/100 WBC Auto (Bld)on 57-66-8691Cfwxkoqmcdz/100 WBC (Bld)12.1 %Low20.5-60.0[facility] HospitalH Auto (RBC) [Entitic mass]on 46-41-9097CTN (RBC) [Entitic mass]23.2 pg Low25.9-34.0[facility] CenterMCHC Auto (RBC) [Mass/Vol]on 26-05-2358UGRA (RBC) [Mass/Vol]30.7 g/dL29.9-35.2FMarion HospitalMCV Auto (RBC) [Entitic vol]on 14-13-8637UUY (RBC) [Entitic vol]75.6 fLLow 80.0-94.0[facility] CenterMonocytes Auto (Bld) [#/Vol]on 40-37-0613Jgtqwhgvw (Bld) [#/Vol]1.3 10 3/uLHigh0.3-0.8[facility] CenterMonocytes/100 WBC Auto (Bld)on 77-36-4391Cmeqvgdcf/100 WBC (Bld) 10.8 %1.7-12.0[facility] CenterNeutrophils Auto (Bld) [#/Vol]on 60-98-9159Qvazavqpyqi (Bld) [#/Vol]8.5 10 3/uLHigh1.4-6.5FMarion HospitalNeutrophils/100 WBC Auto (Bld)on 26-34-8435Zowdcbbckgn/100 WBC (Bld)72.7 %43.0-75.0[facility] CenterNo Panel Informationon 37-90-3634Aulzeqhhfro # (Auto)0.3 10 3/uL0.0-0.7FMarion HospitalImmature Granulocyte # (Auto)0.12 10 3/uLHigh0.00-0.03[facility] CenterPlatelet mean volume Auto (Bld) [Entitic vol]on 31-68-7627Gqrolxky mean volume (Bld) [Entitic vol]11.3 fL9.5-13.5FMarion Hospital Platelets Auto (Bld) [#/Vol]on 48-68-9929Nxnzfbrhd (Bld) [#/Vol]141 10 3/uLLow 150-450St[facility] CenterRBC Auto (Bld) [#/Vol]on 68-14-0244BTL (Bld) [#/Vol]3.49 10 6/uLLow4.70-6.10[facility] Centererum or plasma albumin/globulin mass ratioon 90-73-8195Xbyhpuq/Globulin [Mass ratio]0.5 {ratio}[facility] Centererum or plasma anion gap determination on 11-55-6845Dqqhl gap [Moles/Vol]13.9 mmol/LFMarion Hospital Basophils Auto (Bld) [#/Vol]on 69-66-1957Xfkdmagpx (Bld) [#/Vol]0.0 10 3/uL 0.0-0.1FMarion HospitalBasophils/100 WBC Auto (Bld)on 62-66-3770Sayxyyzww/100 WBC (Bld)0.4 %0.2-2.0[facility] Eosinophils/100 WBC Auto (Bld)on 71-32-7623Kqyfgndesux/100 WBC (Bld)2.2 %0.9-7.0 [facility] CenterErythrocyte distribution width Auto (RBC) [Ratio]on 49-85-9970Cgmlsenniun distribution width (RBC) [Ratio]19.3 %High 11.0-15.0[facility] CenterEstimated glomerular filtration rate (GFR) non- Americanon 32-52-7223OYH/1.73 sq M.predicted among non-blacks MDRD (S/P/Bld) [Vol rate/Area]41 mL/min/{1.73_m2}Low>=60[facility] CenterGlobulin Calc (S) [Mass/Vol]on 34-28-4126Hukccqax (S) [Mass/Vol] 4.2 g/dLSt. Mary'S Medical CenterHematocrit Auto (Bld) [Volume fraction] on 31-83-3704Ajflowjktm (Bld) [Volume fraction]26.1 %Low42.0-54.0[facility] CenterHemoglobin [Mass/volume] in Bloodon 98-40-3278Pmbptfrjxe (Bld) [Mass/Vol]7.8 g/dLLow14.0-18.0[facility] CenterLaboratory - Chemistry and Chemistry - challengeon 58-08-6989Jxuuevd [Mass/Vol]2.1 g/dLLow 3.4-5.0[facility] CenterALP [Catalytic activity/Vol]131 U/LHigh 46-116[facility] CenterALT [Catalytic activity/Vol]17 U/L16-63 [facility] CenterAST [Catalytic activity/Vol]13 U/PFjs86-47 [facility] CenterBilirubin [Mass/Vol]0.3 mg/dL0.2-1.0[facility] CenterCalcium [Mass/Vol]6.6 mg/dLLow8.5-10.1FMarion HospitalChloride [Moles/Vol]105 mmol/K31-563ZenvspcneSt. Mary'S Medical CenterCO2 [Moles/Vol]24.3 mmol/L21.0-32.0[facility] Creatinine [Mass/Vol]1.72 mg/dLHigh0.70-1.30[facility] GFR/1.73 sq M.predicted MDRD (S/P/Bld) [Vol rate/Area]50 mL/min/{1.73_m2}Low>=60 [facility] CenterGlucose [Mass/Vol]156 mg/jOJuov52-585BwhldytmiSt. Mary'S Medical CenterMagnesium [Mass/Vol]1.5 mg/dLLow1.8-2.4FMarion HospitalPotassium [Moles/Vol]4.0 mmol/L3.5-5.1FMarion HospitalProtein [Mass/Vol]6.3 g/dLLow6.4-8.2FMarion Hospital Sodium [Moles/Vol]139 mmol/H687-979DivpzjvblSt. Mary'S Medical CenterUrea nitrogen [Mass/Vol]27.0 mg/dLHigh7.0-18.0[facility] CenterUrea nitrogen/Creatinine [Mass ratio]15.7 mg/mgSt. Mary'S [facility] Laboratory - Hematology and Cell countson 40-38-2399Qjixeebc granulocytes/100 WBC (Bld)0.4 %0.0-0.5FMarion HospitalESR (Bld) [Velocity]110 mm/hHigh<=20[facility] CenterLaboratory - Microbiology and Antimicrobial susceptibilityOrdered By: Truman Bryant on 54-01-4377Cvpptdvdcuj observation Gram stain Nom (Unsp spec)[facility] Leukocytes [#/volume] corrected for nucleated erythrocytes in Blood by Automated counon 04-13-2595DYR corrected for nucl RBC Auto (Bld) [#/Vol]8.5 10 3/uL 4.0-11.0[facility] CenterLymphocytes Auto (Bld) [#/Vol]on 46-33-9822Pdufhkdoknq (Bld) [#/Vol]1.5 10 3/uL1.2-3.8[facility] CenterLymphocytes/100 WBC Auto (Bld)on 39-95-7384Pursgnbruit/100 WBC (Bld)17.3 % Low20.5-60.0[facility] CenterMC Auto (RBC) [Entitic mass]on 61-50-6324YLW (RBC) [Entitic mass]22.5 pgLow25.9-34.0[facility] CenterMCHC Auto (RBC) [Mass/Vol]on 03-39-8421VLSN (RBC) [Mass/Vol]29.9 g/dL 29.9-35.2FMarion HospitalMCV Auto (RBC) [Entitic vol]on 45-97-8368OWK (RBC) [Entitic vol]75.2 fLLow80.0-94.0[facility] CenterMonocytes Auto (Bld) [#/Vol]on 97-30-0975Dmdltqwqk (Bld) [#/Vol]0.8 10 3/uL0.3-0.8[facility] CenterMonocytes/100 WBC Auto (Bld)on 95-55-9991Xvrehlqzx/100 WBC (Bld)9.1 %1.7-12.0[facility] Neutrophils Auto (Bld) [#/Vol]on 95-58-7795Xzfegnhqspu (Bld) [#/Vol]6.0 10 3/uL 1.4-6.5FMarion HospitalNeutrophils/100 WBC Auto (Bld)on 32-60-2445Twrqtltoscr/100 WBC (Bld)70.6 %43.0-75.0[facility] CenterNo Panel Informationon 46-02-2040Bnfrnmzohxl # (Auto)0.2 10 3/uL0.0-0.7 [facility] CenterImmature Granulocyte # (Auto)0.03 10 3/uL 0.00-0.03[facility] CenterFungal Smear ResultSt. Mary'S Medical CenterMiscellaneous Test CommentSee commentSt. Mary'S Medical CenterComment on above:Specimen Source: FOOTRT - Foot Right - Foot Rt - 604.000 No Panel InformationOrdered By: Truman Bryant on 88-57-6709Qnkrxh CultureSt. Mary'S Medical CenterNo Panel InformationOrdered By: Paula Soto on 42-28-9739Rdzi Fast SmearSt. Mary'S Medical CenterAFB Specimen ProcessingSt. Mary'S Medical CenterPlatelet mean volume Auto (Bld) [Entitic vol]on 78-97-5380Cctdnbsw mean volume (Bld) [Entitic vol]10.6 fL 9.5-13.5FMarion HospitalPlatelets Auto (Bld) [#/Vol]on 57-31-4308Alpddptjw (Bld) [#/Vol]142 10 3/uDAli940-477GsxfpneqlSt. Mary'S Medical CenterRBC Auto (Bld) [#/Vol]on 43-58-1791IXS (Bld) [#/Vol]3.47 10 6/uLLow 4.70-6.10[facility] Centererum or plasma albumin/globulin mass ratioon 04-77-3613Zapacup/Globulin [Mass ratio]0.5 {ratio}[facility] Centererum or plasma anion gap determinationon 59-42-8325Doyfi gap [Moles/Vol]13.7 mmol/LFMarion HospitalBasophils Auto (Bld) [#/Vol]on 89-00-1569Vwwfjljiv (Bld) [#/Vol]0.0 10 3/uL0.0-0.1FMarion HospitalBasophils/100 WBC Auto (Bld)on 50-08-8252Ruepnbngg/100 WBC (Bld) 0.4 %0.2-2.0[facility] CenterEosinophils/100 WBC Auto (Bld)on 21-68-0975Uyeffbxzovm/100 WBC (Bld)1.7 %0.9-7.0[facility] Erythrocyte distribution width Auto (RBC) [Ratio]on 44-16-6868Sjnjbgitygy distribution width (RBC) [Ratio]18.5 %High11.0-15.0[facility] CenterEstimated glomerular filtration rate (GFR) non- Americanon 68-89-4273SYF/1.73 sq M.predicted among non-blacks MDRD (S/P/Bld) [Vol rate/Area]27 mL/min/{1.73_m2}Low>=60St. [facility] Medical CenterGlobulin Calc (S) [Mass/Vol]on 05-57-6121Smpntqgk (S) [Mass/Vol]4.0 g/dLSt. Mary'S Medical CenterHematocrit Auto (Bld) [Volume fraction]on 10-01-2023 Hematocrit (Bld) [Volume fraction]26.5 %Low42.0-54.0[facility] CenterHemoglobin [Mass/volume] in Bloodon 28-01-1567Wdpvjnzcgh (Bld) [Mass/Vol] 8.0 g/dLLow14.0-18.0[facility] CenterLaboratory - Chemistry and Chemistry - challengeon 82-60-9666Okgqluy [Moles/Vol]1.8 mmol/L0.4-2.0[facility] CenterAlbumin [Mass/Vol]1.9 g/dLLow3.4-5.0[facility] CenterALP [Catalytic activity/Vol]113 U/T13-229GymotmklzSt. Mary'S Medical CenterALT [Catalytic activity/Vol]17 U/B40-54JqhcrvhnlSt. Mary'S Medical CenterAST [Catalytic activity/Vol]14 U/ISsd87-54AmvgtpuhhSt. Mary'S Medical CenterBilirubin [Mass/Vol]0.3 mg/dL0.2-1.0[facility] Calcium [Mass/Vol]5.7 mg/dLLow8.5-10.1FMarion HospitalComment on above:RESULTS CALLED TO Moncho Tsang)@BY Marybel Hawkins MLT at 0619 Chloride [Moles/Vol]102 mmol/Y69-571OjitdaqvnSt. Mary'S Medical CenterCO2 [Moles/Vol]20.4 mmol/LLow21.0-32.0[facility] CenterCreatinine [Mass/Vol]2.46 mg/dLHigh0.70-1.30[facility] CenterGFR/1.73 sq M.predicted MDRD (S/P/Bld) [Vol rate/Area]33 mL/min/{1.73_m2}Low>=60[facility] CenterGlucose [Mass/Vol]67 mg/gCTuw17-603DptrcftpdSt. Mary'S Medical CenterMagnesium [Mass/Vol]0.8 mg/dLLow1.8-2.4FMarion HospitalComment on above:RESULTS CALLED TO Moncho CORREA)@BY SOFIYA Way at 0601Potassium [Moles/Vol]3.1 mmol/LLow3.5-5.1FMarion HospitalProtein [Mass/Vol]5.9 g/dLLow6.4-8.2FTriHealth Good Samaritan Hospitalodium [Moles/Vol]138 mmol/F094-684TzrzkdpaySt. Mary'S Medical CenterUrea nitrogen [Mass/Vol]28.0 mg/dLHigh7.0-18.0[facility] CenterUrea nitrogen/Creatinine [Mass ratio]11.4 mg/mgSt. Mary'S Medical CenterLaboratory - Hematology and Cell countson 26-94-1069ABT (Bld) [Velocity]96 mm/hHigh<=20St[facility] CenterImmature granulocytes/100 WBC (Bld)0.6 %High0.0-0.5FMarion HospitalLeukocytes [#/volume] corrected for nucleated erythrocytes in Blood by Automated counon 64-05-3361ZVE corrected for nucl RBC Auto (Bld) [#/Vol]10.0 10 3/uL4.0-11.0[facility] CenterLymphocytes Auto (Bld) [#/Vol]on 96-46-2767Vcxwdsjxgdu (Bld) [#/Vol]1.3 10 3/uL1.2-3.8St[facility] CenterLymphocytes/100 WBC Auto (Bld)on 17-97-4150Wdsovzunhbp/100 WBC (Bld)12.8 %Low20.5-60.0[facility] HospitalH Auto (RBC) [Entitic mass]on 87-83-3334NHY (RBC) [Entitic mass]22.4 pgLow25.9-34.0[facility] CenterMCHC Auto (RBC) [Mass/Vol]on 86-10-1528SXUR (RBC) [Mass/Vol]30.2 g/dL29.9-35.2FMarion HospitalMCV Auto (RBC) [Entitic vol]on 38-46-7993GQP (RBC) [Entitic vol]74.2 fLLow80.0-94.0[facility] CenterMonocytes Auto (Bld) [#/Vol]on 51-28-4564Mxqzxuujf (Bld) [#/Vol]0.7 10 3/uL0.3-0.8[facility] CenterMonocytes/100 WBC Auto (Bld)on 06-62-1204Bkrdckbnc/100 WBC (Bld)6.9 %1.7-12.0[facility] CenterNeutrophils Auto (Bld) [#/Vol]on 84-21-1733Vqyphzjunvy (Bld) [#/Vol]7.8 10 3/uLHigh1.4-6.5FMarion HospitalNeutrophils/100 WBC Auto (Bld)on 10-01-2023 Neutrophils/100 WBC (Bld)77.6 %High43.0-75.0[facility] CenterNo Panel Informationon 57-03-7224T-Reactive Protein, Trfnmsfvoddn72.58 mg/dLHigh <=0.50St. [facility] CenterEosinophils # (Auto)0.2 10 3/uL0.0-0.7 [facility] CenterImmature Granulocyte # (Auto)0.06 10 3/uLHigh 0.00-0.03[facility] CenterTroponin I High Sensitivity8.3 pg/mL 4.0-76.1FMarion HospitalComment on above:CUT-OFF POINTS HAVE BEEN ESTABLISHED [...] AND CLINICAL INFORMATION.Venous Blood Partial Pressure CO230.4 mm[Hg]Low40.0-52.0[facility] Venous Blood pH7.4217.330-7.430St. [facility] Medical CenterPlatelet mean volume Auto (Bld) [Entitic vol]on 54-94-8436Jmpmwhpx mean volume (Bld) [Entitic vol]11.2 fL9.5-13.5FMarion HospitalPlatelets Auto (Bld) [#/Vol] on 54-98-8325Pfzevzwki (Bld) [#/Vol]164 10 3/yF213-624MjlkoizdoSt. Mary'S Medical CenterRBC Auto (Bld) [#/Vol]on 65-23-8331DQC (Bld) [#/Vol]3.57 10 6/uLLow 4.70-6.10[facility] Centererum or plasma albumin/globulin mass ratioon 35-88-5393Spbfwir/Globulin [Mass ratio]0.5 {ratio}[facility] Centererum or plasma anion gap determinationon 47-49-7560Qcuxk gap [Moles/Vol]18.7 mmol/LFMarion HospitalAutomated epithelial cells count in urine sediment (number/area)on 30-87-2321Dxsuwrxdko cells Auto (Urine sed) [#/Area]NONE SEEN #/LPFNONE/RARESt. Mary'S Medical Center Automated leukocytes count in urine sediment (number/area)on 91-31-0960LTI Auto (Urine sed) [#/Area]NONE SEEN #/HPF0-2FMarion HospitalAutomated urine specific gravity by refractometryon 26-38-0496Cztiqnfz gravity Refractometry automated (U) [Rel density]<=1.698Veuzvyln3.005-1.025[facility] CenterBasophils Auto (Bld) [#/Vol]on 97-08-6082Poffrcbyk (Bld) [#/Vol]0.1 10 3/uL0.0-0.1FMarion HospitalBasophils/100 WBC Auto (Bld)on 50-19-0905Svzpocerq/100 WBC (Bld)0.4 %0.2-2.0[facility] CenterBilirubin Auto test strip (U) [Mass/Vol]on 33-12-4626Cufdakuos (U) [Mass/Vol]NegativeNEGATIVESt. Mary'S Medical CenterCast typing in urine sediment by light microscopyon 29-99-0189Znbgb LM Nom (Urine sed)NONE SEEN #/LPFNONE SEENSt. Mary'S Medical CenterColor Auto (U)on 09-58-6751Swyac (U)LT. YELLOWYELLOWSt. Mary'S Medical CenterEosinophils/100 WBC Auto (Bld)on 53-56-4736Ukkswgolgpb/100 WBC (Bld)1.4 %0.9-7.0[facility] CenterErythrocyte distribution width Auto (RBC) [Ratio]on 09-30-2023 Erythrocyte distribution width (RBC) [Ratio]19.0 %High11.0-15.0[facility] CenterEstimated glomerular filtration rate (GFR) non- Americanon 62-28-4570OFC/1.73 sq M.predicted among non-blacks MDRD (S/P/Bld) [Vol rate/Area]19 mL/min/{1.73_m2}Low>=60[facility] Globulin Calc (S) [Mass/Vol]on 69-14-4971Rhvzzmkz (S) [Mass/Vol]4.8 g/dL [facility] CenterHematocrit Auto (Bld) [Volume fraction]on 91-35-6975Tlqeningbj (Bld) [Volume fraction]32.9 %Low42.0-54.0[facility] CenterHemoglobin [Mass/volume] in Bloodon 73-35-6156Ewhgjzbxpa (Bld) [Mass/Vol]10.0 g/dLLow14.0-18.0[facility] CenterINR in Platelet poor plasma by Coagulation assayon 21-15-8385WDO Coag (PPP) [Relative time]1.23 {INR}[facility] Medical CenterComment on above:DESIRED INR:2.0-3.0 CONDITIONS NOT LISTED BELOW2.5-3.5 FOR PROSTHETIC HEART VALVE REPLACEMENT2.5-3.5 RECURRENT THROMBOSISKetones Auto test strip (U) [Mass/Vol]on 00-29-9196Jydybcj (U) [Mass/Vol]NegativeNEGATIVESt. Mary'S Medical CenterLaboratory - Chemistry and Chemistry - challengeon 91-53-9997Pdhyufo [Moles/Vol]4.2 mmol/L High0.4-2.0St[facility] Medical CenterComment on above:RESULTS CALLED TO Moncho CORREA)@BY SOFIYA Way at 2312Albumin [Mass/Vol]2.4 g/dL Low3.4-5.0[facility] CenterALP [Catalytic activity/Vol]145 U/L Tjul07-364VlirmagwwSt. Mary'S Medical CenterALT [Catalytic activity/Vol]17 U/L 16-63[facility] CenterAST [Catalytic activity/Vol]21 U/L15-37 [facility] CenterBilirubin [Mass/Vol]0.4 mg/dL0.2-1.0[facility] CenterCalcium [Mass/Vol]5.8 mg/dLLow8.5-10.1FMarion HospitalComment on above:RESULTS CALLED TO CHANDRIKA CASTANON @BY Verona Hanson at 1645Chloride [Moles/Vol]97 mmol/QAjn37-393VkupzogdcSt. Mary'S Medical Center CO2 [Moles/Vol]18.3 mmol/LLow21.0-32.0[facility] Creatinine [Mass/Vol]3.43 mg/dLHigh0.70-1.30[facility] GFR/1.73 sq M.predicted MDRD (S/P/Bld) [Vol rate/Area]22 mL/min/{1.73_m2}Low>=60 [facility] CenterGlucose [Mass/Vol]208 mg/pQVjjb05-385ZfmybgepmSt. Mary'S Medical CenterMagnesium [Mass/Vol]0.5 mg/dLLow1.8-2.4FMarion HospitalComment on above:RESULTS CALLED TO Chandrika Castanon @BY Marybel Hawkins, TOBACCO CLOTH RECLAIMER jq2307Vdnvzvzxnwc peptide B (Bld) [Mass/Vol]611.0 pg/mL<=900.0 [facility] CenterPotassium [Moles/Vol]3.9 mmol/L3.5-5.1FMarion HospitalProtein [Mass/Vol]7.2 g/dL6.4-8.2FTriHealth Good Samaritan Hospitalodium [Moles/Vol]137 mmol/X711-266CmgyknpvySt. Mary'S Medical CenterUrea nitrogen [Mass/Vol]34.0 mg/dLHigh7.0-18.0[facility] CenterUrea nitrogen/Creatinine [Mass ratio]9.9 mg/mgSt. Mary'S Medical CenterLaboratory - Hematology and Cell countson 86-09-2275CBS (Bld) [Velocity] 130 mm/hHigh<=20St. [facility] CenterImmature granulocytes/100 WBC (Bld)0.6 %High0.0-0.5FMarion HospitalLeukocytes [#/volume] corrected for nucleated erythrocytes in Blood by Automated counon 09-47-9433EOS corrected for nucl RBC Auto (Bld) [#/Vol]13.9 10 3/uLHigh4.0-11.0[facility] CenterLymphocytes Auto (Bld) [#/Vol]on 91-86-8957Thtuapqrjsp (Bld) [#/Vol]1.4 10 3/uL1.2-3.8[facility] CenterLymphocytes/100 WBC Auto (Bld)on 35-66-6712Ddeczcoqyvm/100 WBC (Bld)10.1 %Low20.5-60.0[facility] HospitalH Auto (RBC) [Entitic mass]on 75-30-5824VDT (RBC) [Entitic mass]22.7 pgLow25.9-34.0[facility] CenterMCHC Auto (RBC) [Mass/Vol]on 15-37-6747SQRS (RBC) [Mass/Vol]30.4 g/dL29.9-35.2FMarion HospitalMCV Auto (RBC) [Entitic vol]on 10-50-6310ARL (RBC) [Entitic vol]74.6 fLLow80.0-94.0[facility] CenterMonocytes Auto (Bld) [#/Vol]on 54-95-7087Jmlciynlw (Bld) [#/Vol]0.9 10 3/uLHigh0.3-0.8[facility] CenterMonocytes/100 WBC Auto (Bld)on 95-34-6534Hyyhwfyfz/100 WBC (Bld)6.7 %1.7-12.0[facility] CenterMucus LM Ql (Urine sed)on 14-16-5241Auwel Ql (Urine sed)NONE SEENNONE SEENSt. Mary'S Medical CenterNeutrophils Auto (Bld) [#/Vol]on 75-34-5440Gqgvqkqpknw (Bld) [#/Vol]11.2 10 3/uLHigh1.4-6.5FMarion HospitalNeutrophils/100 WBC Auto (Bld)on 60-23-9225Bvckqbnzwhj/100 WBC (Bld)80.8 %High43.0-75.0[facility] CenterNo Panel Informationon 20-37-2807Xmyrkots I High Sensitivity7.9 pg/mL4.0-76.1FMarion HospitalComment on above:CUT-OFF POINTS HAVE BEEN ESTABLISHED [...] AND CLINICAL INFORMATION.Venous Blood Partial Pressure CO229.6 mm[Hg]Low40.0-52.0[facility] CenterVenous Blood pH7.4057.330-7.430[facility] CenterUrine Culture ReflexedNOSt. Mary'S Medical CenterC-Reactive Protein, Ygcgojniwisz70.76 mg/dLHigh<=0.50[facility] Eosinophils # (Auto)0.2 10 3/uL0.0-0.7FMarion HospitalImmature Granulocyte # (Auto)0.09 10 3/uLHigh0.00-0.03[facility] CenterNo Panel InformationOrdered By: Chandrika Castanon on 99-61-4101Cajfx Culture 2FMarion HospitalWound CultureSt. Mary'S Medical CenterBlood Culture 1FMarion HospitalPlatelet mean volume Auto (Bld) [Entitic vol]on 22-54-1213Tbchemar mean volume (Bld) [Entitic vol]10.9 fL 9.5-13.5FMarion HospitalPlatelets Auto (Bld) [#/Vol]on 82-24-8653Satmnrvle (Bld) [#/Vol]227 10 3/wB604-311MnuqhdgdlSt. Mary'S Medical CenterProtein Auto test strip (U) [Mass/Vol]on 98-16-7613Kzwycst (U) [Mass/Vol] NegativeNEG/TRACESt. Mary'S Medical CenterProthrombin time (PT)on 76-89-8357HM Coag (PPP) [Time]12.9 sHigh9.0-11.6FMarion HospitalRBC Auto (Bld) [#/Vol]on 85-54-0609KAG (Bld) [#/Vol]4.41 10 6/uLLow 4.70-6.10[facility] Centererum or plasma albumin/globulin mass ratioon 96-91-9021Wsifduv/Globulin [Mass ratio]0.5 {ratio}[facility] Centererum or plasma anion gap determinationon 37-12-9272Epxue gap [Moles/Vol]25.6 mmol/LFTriHealth Good Samaritan Hospitalpecific gravity Auto test strip (U) [Rel density]on 14-28-5480Fynnjfae gravity (U) [Rel density]CLEAR CLEARSt. Mary'S Medical CenterUrine bacteria detection by automated methodon 73-00-2911Xgcqqfbt Auto Ql (U)NONE SEEN #/HPFNONE [facility] HospitalUrine glucose measurement by test strip (mass/volume)on 98-09-5549Njinjiz Test strip (U) [Mass/Vol]500 mg/dLAbnormalNEGParkview HealthUrine hemoglobin detection by automated test stripon 21-27-6355Kmmziwmjxg Auto test strip Ql (U)TRACE-INEGATIVESt. Mary'S Medical CenterUrine nitrite detection by automated test stripon 09-30-2023 Nitrite Auto test strip Ql (U)NegativeNEGParkview Health Urine sediment crystal identification by light microscopyon 49-76-9798Uvfwpefi LM Nom (Urine sed)None Seen #/HPFNone [facility] HospitalUrine sediment leukocyte count by microscopy (number/high power field)on 09-30-2023 WBC LM.HPF (Urine sed) [#/Area]NONE SEEN #/HPFNONE [facility] HospitalUrobilinogen Auto test strip (U) [Mass/Vol]on 09-30-2023 Urobilinogen Qn (U)0.2 {Brendan'U}/dL0.2-1.0[facility] CenterpH Auto test strip (U)on 25-01-5757pS (U)5.5 [pH]5.0-9.0[facility] CenterLaboratory - Microbiology and Antimicrobial susceptibilityOrdered By: Teresa Lynch on 01-59-0169Hllwdldakcl observation Gram stain Nom (Unsp spec) [facility] Medical CenterActivated partial thromboplastin time (aPTT) in platelet poor plasma by coagulation aon 65-53-7792uBWY Coag (PPP) [Time]32.0 s 22.3-36.2FMarion HospitalBasophils Auto (Bld) [#/Vol]on 96-19-9448Vqaxhiimu (Bld) [#/Vol]0.1 10 3/uL0.0-0.1FMarion HospitalBasophils/100 WBC Auto (Bld)on 66-27-1246Ijbvlfzgo/100 WBC (Bld)0.9 % 0.2-2.0[facility] CenterEosinophils/100 WBC Auto (Bld)on 63-61-8817Qkzvmnoxihq/100 WBC (Bld)2.3 %0.9-7.0[facility] Erythrocyte distribution width Auto (RBC) [Ratio]on 83-43-3343Ixuqvkluwxq distribution width (RBC) [Ratio]18.8 %High11.0-15.0[facility] CenterEstimated glomerular filtration rate (GFR) non- Americanon 50-82-7638LCF/1.73 sq M.predicted among non-blacks MDRD (S/P/Bld) [Vol rate/Area]27 mL/min/{1.73_m2}Low>=60St[facility] CenterHematocrit Auto (Bld) [Volume fraction]on 99-99-3501Pdxclfiuqm (Bld) [Volume fraction]35.0 %Low42.0-54.0[facility] CenterHemoglobin [Mass/volume] in Blood on 85-82-4590Wktaxjplkb (Bld) [Mass/Vol]10.3 g/dLLow14.0-18.0[facility] CenterINR in Platelet poor plasma by Coagulation assayon 59-93-5587GSY Coag (PPP) [Relative time]1.08 {INR}[facility] Medical CenterComment on above:DESIRED INR:2.0-3.0 CONDITIONS NOT LISTED BELOW2.5-3.5 FOR PROSTHETIC HEART VALVE REPLACEMENT2.5-3.5 RECURRENT THROMBOSISLaboratory - Chemistry and Chemistry - challengeon 11-23-7843Hcceyqg [Mass/Vol]8.9 mg/dL8.5-10.1FMarion HospitalChloride [Moles/Vol]97 mmol/VAei03-417DphgtewkbSt. Mary'S Medical CenterCO2 [Moles/Vol]28.2 mmol/L21.0-32.0[facility] CenterCreatinine [Mass/Vol]2.47 mg/dLHigh0.70-1.30[facility] CenterGFR/1.73 sq M.predicted MDRD (S/P/Bld) [Vol rate/Area]33 mL/min/{1.73_m2} Low>=60St. [facility] CenterGlucose [Mass/Vol]200 mg/cTWvpq01-372 [facility] CenterPotassium [Moles/Vol]3.7 mmol/L3.5-5.1FTriHealth Good Samaritan Hospitalodium [Moles/Vol]137 mmol/P188-391EsfsyltbzSt. Mary'S Medical CenterUrea nitrogen [Mass/Vol]23.0 mg/dLHigh7.0-18.0[facility] CenterUrea nitrogen/Creatinine [Mass ratio]9.3 mg/mgSt. Mary'S Medical CenterLaboratory - Hematology and Cell countson 89-12-6774Bjwmbuli granulocytes/100 WBC (Bld)0.6 %High0.0-0.5FMarion Hospital Leukocytes [#/volume] corrected for nucleated erythrocytes in Blood by Automated counon 44-90-3954NAU corrected for nucl RBC Auto (Bld) [#/Vol]12.4 10 3/uLHigh 4.0-11.0[facility] CenterLymphocytes Auto (Bld) [#/Vol]on 91-35-0485Rodexbwxkqo (Bld) [#/Vol]2.4 10 3/uL1.2-3.8[facility] CenterLymphocytes/100 WBC Auto (Bld)on 61-00-5392Vbksmfsqtir/100 WBC (Bld)19.6 % Low20.5-60.0[facility] HospitalH Auto (RBC) [Entitic mass]on 35-81-4503ETW (RBC) [Entitic mass]22.2 pgLow25.9-34.0[facility] CenterMCHC Auto (RBC) [Mass/Vol]on 41-23-9576SCEF (RBC) [Mass/Vol]29.4 g/dLLow 29.9-35.2FMarion HospitalMCV Auto (RBC) [Entitic vol]on 57-28-0893XTR (RBC) [Entitic vol]75.3 fLLow80.0-94.0[facility] CenterMonocytes Auto (Bld) [#/Vol]on 33-58-2650Qlbqluwjs (Bld) [#/Vol]1.2 10 3/uLHigh0.3-0.8[facility] CenterMonocytes/100 WBC Auto (Bld)on 76-88-3719Xgthuxwhw/100 WBC (Bld)10.0 %1.7-12.0[facility] Neutrophils Auto (Bld) [#/Vol]on 02-97-9573Ngvolazdjsr (Bld) [#/Vol]8.2 10 3/uL High1.4-6.5FMarion HospitalNeutrophils/100 WBC Auto (Bld)on 60-04-4652Jbwiywqsvhu/100 WBC (Bld)66.6 %43.0-75.0[facility] CenterNo Panel Informationon 16-32-7434Khkveoivtae # (Auto)0.3 10 3/uL0.0-0.7 [facility] CenterImmature Granulocyte # (Auto)0.07 10 3/uLHigh 0.00-0.03St[facility] CenterPlatelet mean volume Auto (Bld) [Entitic vol]on 98-08-8937Jhalpcru mean volume (Bld) [Entitic vol]10.9 fL 9.5-13.5FMarion HospitalPlatelets Auto (Bld) [#/Vol]on 22-46-7018Taghsxthd (Bld) [#/Vol]300 10 3/tA528-978TwrfilurpSt. Mary'S Medical CenterProthrombin time (PT)on 82-65-0399ZU Coag (PPP) [Time]11.4 s9.0-11.6 [facility] CenterRBC Auto (Bld) [#/Vol]on 26-67-9905HJZ (Bld) [#/Vol]4.65 10 6/uLLow4.70-6.10[facility] Centererum or plasma anion gap determinationon 61-74-9879Dzduw gap [Moles/Vol]15.5 mmol/LFMarion HospitalLaboratory - Microbiology and Antimicrobial susceptibilityOrdered By: Teresa Lynch on 93-79-7392Zcrxqtljjop observation Gram stain Nom (Unsp spec)[facility] CenterNo Panel Informationon 23-61-3601Qspwsu Smear ResultSt. Mary'S Medical CenterMiscellaneous Test CommentSee commentSt. Mary'S Medical CenterComment on above:Specimen Source: FOOTRT - Foot Right - Foot Rt - 604.000No Panel InformationOrdered By: Teresa Lynch on 95-57-8190Bbbw Fast CultureSt. Mary'S Medical CenterAcid Fast SmearSt. Mary'S Medical CenterAFB Specimen ProcessingSt. Mary'S Medical CenterTissue CultureSt. Mary'S Medical CenterBasophils Auto (Bld) [#/Vol]on 16-29-3201Ryhzuygwj (Bld) [#/Vol]0.1 10 3/uL0.0-0.1 [facility] CenterBasophils/100 WBC Auto (Bld)on 08-07-2023 Basophils/100 WBC (Bld)0.7 %0.2-2.0[facility] Eosinophils/100 WBC Auto (Bld)on 72-32-5612Dwkeochpdda/100 WBC (Bld)3.9 %0.9-7.0 [facility] CenterErythrocyte distribution width Auto (RBC) [Ratio]on 24-70-7397Qsyxeixnzwy distribution width (RBC) [Ratio]16.9 %11.0-15.0 [facility] CenterEstimated glomerular filtration rate (GFR) non- Americanon 82-53-9184GQZ/1.73 sq M.predicted among non-blacks MDRD (S/P/Bld) [Vol rate/Area]42 mL/min/{1.73_m2}>=60St[facility] CenterGlobulin Calc (S) [Mass/Vol]on 87-29-7561Aeqojlwq (S) [Mass/Vol]4.0 g/dL [facility] CenterHematocrit Auto (Bld) [Volume fraction]on 03-52-0351Mryuwsfluj (Bld) [Volume fraction]31.5 %42.0-54.0[facility] CenterHemoglobin [Mass/volume] in Bloodon 47-05-6745Pxsqdomyaj (Bld) [Mass/Vol]9.4 g/dL14.0-18.0[facility] CenterLaboratory - Chemistry and Chemistry - challengeon 49-05-4816Plqcucd [Mass/Vol]2.1 g/dL 3.4-5.0[facility] CenterALP [Catalytic activity/Vol]144 U/L 46-116[facility] CenterALT [Catalytic activity/Vol]21 U/L16-63 [facility] CenterAST [Catalytic activity/Vol]25 U/L15-37 [facility] CenterBilirubin [Mass/Vol]0.4 mg/dL0.2-1.0[facility] CenterCalcium [Mass/Vol]8.1 mg/dL8.5-10.1FMarion HospitalChloride [Moles/Vol]102 mmol/X47-468VxbapiaeiSt. Mary'S Medical CenterCO2 [Moles/Vol]24.7 mmol/L21.0-32.0[facility] Creatinine [Mass/Vol]1.70 mg/dL0.70-1.30[facility] GFR/1.73 sq M.predicted MDRD (S/P/Bld) [Vol rate/Area]50 mL/min/{1.73_m2}>=60 [facility] CenterGlucose [Mass/Vol]188 mg/yB57-981QiqdalhymSt. Mary'S Medical CenterPotassium [Moles/Vol]4.6 mmol/L3.5-5.1FMarion HospitalProtein [Mass/Vol]6.1 g/dL6.4-8.2FMarion Hospital Sodium [Moles/Vol]135 mmol/Q542-507IloykihlfSt. Mary'S Medical CenterUrea nitrogen [Mass/Vol]33.0 mg/dL7.0-18.0[facility] CenterUrea nitrogen/Creatinine [Mass ratio]19.4 mg/mgSt. Mary'S Medical Center Laboratory - Hematology and Cell countson 34-09-5220Lfklwbyg granulocytes/100 WBC (Bld)0.7 %0.0-0.5FMarion HospitalLeukocytes [#/volume] corrected for nucleated erythrocytes in Blood by Automated counon 65-90-6553ODG corrected for nucl RBC Auto (Bld) [#/Vol]12.0 10 3/uL4.0-11.0[facility] CenterLymphocytes Auto (Bld) [#/Vol]on 97-73-3644Mwmgonexqqv (Bld) [#/Vol]1.5 10 3/uL1.2-3.8[facility] CenterLymphocytes/100 WBC Auto (Bld)on 72-89-7604Ztvyhbyfnar/100 WBC (Bld)12.4 %20.5-60.0[facility] Auto (RBC) [Entitic mass]on 66-85-9476JNL (RBC) [Entitic mass]22.5 pg25.9-34.0[facility] CenterMCHC Auto (RBC) [Mass/Vol]on 03-92-0979BIYW (RBC) [Mass/Vol]29.8 g/dL29.9-35.2FMarion HospitalMCV Auto (RBC) [Entitic vol]on 92-28-6280OZQ (RBC) [Entitic vol] 75.4 fL80.0-94.0[facility] CenterMonocytes Auto (Bld) [#/Vol]on 75-14-7467Nbvprfxfp (Bld) [#/Vol]1.2 10 3/uL0.3-0.8[facility] CenterMonocytes/100 WBC Auto (Bld)on 84-55-4953Ivxaplplg/100 WBC (Bld)10.1 % 1.7-12.0[facility] CenterNeutrophils Auto (Bld) [#/Vol]on 26-87-3292Jqazwtyeymk (Bld) [#/Vol]8.7 10 3/uL1.4-6.5FMarion HospitalNeutrophils/100 WBC Auto (Bld)on 03-51-0358Rirkxvlnsms/100 WBC (Bld)72.2 % 43.0-75.0[facility] CenterNo Panel Informationon 08-07-2023 Eosinophils # (Auto)0.5 10 3/uL0.0-0.7FMarion HospitalImmature Granulocyte # (Auto)0.09 10 3/uL0.00-0.03[facility] Platelet mean volume Auto (Bld) [Entitic vol]on 32-95-7906Hmapzwvs mean volume (Bld) [Entitic vol]11.7 fL9.5-13.5FMarion HospitalPlatelets Auto (Bld) [#/Vol]on 57-09-5468Jymwbfwfc (Bld) [#/Vol]222 10 3/xJ078-865 [facility] CenterRBC Auto (Bld) [#/Vol]on 06-52-4230SMX (Bld) [#/Vol]4.18 10 6/uL4.70-6.10[facility] Centererum or plasma albumin/globulin mass ratioon 94-72-7557Dcrsnaz/Globulin [Mass ratio]0.5 {ratio} [facility] Centererum or plasma anion gap determinationon 45-42-8268Bbvjx gap [Moles/Vol]12.9 mmol/LFMarion Hospital Basophils Auto (Bld) [#/Vol]on 52-48-8023Sxrmqnugr (Bld) [#/Vol]0.1 10 3/uL 0.0-0.1FMarion HospitalBasophils/100 WBC Auto (Bld)on 13-65-6906Owghvsjms/100 WBC (Bld)0.7 %0.2-2.0[facility] Eosinophils/100 WBC Auto (Bld)on 42-26-4110Asjtutsrhzf/100 WBC (Bld)3.3 %0.9-7.0 [facility] CenterErythrocyte distribution width Auto (RBC) [Ratio]on 16-90-4966Devsfjtcgec distribution width (RBC) [Ratio]17.0 %11.0-15.0 [facility] CenterEstimated glomerular filtration rate (GFR) non- Americanon 06-28-8416GDX/1.73 sq M.predicted among non-blacks MDRD (S/P/Bld) [Vol rate/Area]36 mL/min/{1.73_m2}>=60[facility] CenterGlobulin Calc (S) [Mass/Vol]on 72-51-8663Cedwhsrv (S) [Mass/Vol]4.0 g/dL [facility] CenterHematocrit Auto (Bld) [Volume fraction]on 40-51-4748Ezqizosxzi (Bld) [Volume fraction]30.1 %42.0-54.0[facility] CenterHemoglobin [Mass/volume] in Bloodon 67-19-6847Zhsxbqqapf (Bld) [Mass/Vol]8.8 g/dL14.0-18.0[facility] CenterLaboratory - Chemistry and Chemistry - challengeon 46-70-2933Usimoat [Mass/Vol]2.0 g/dL 3.4-5.0[facility] CenterALP [Catalytic activity/Vol]127 U/L 46-116[facility] CenterALT [Catalytic activity/Vol]14 U/L16-63 [facility] CenterAST [Catalytic activity/Vol]16 U/L15-37 [facility] CenterBilirubin [Mass/Vol]0.4 mg/dL0.2-1.0[facility] CenterCalcium [Mass/Vol]7.9 mg/dL8.5-10.1FMarion HospitalChloride [Moles/Vol]99 mmol/I89-296SahvcdntdSt. Mary'S Medical CenterCO2 [Moles/Vol]25.0 mmol/L21.0-32.0[facility] Creatinine [Mass/Vol]1.95 mg/dL0.70-1.30[facility] GFR/1.73 sq M.predicted MDRD (S/P/Bld) [Vol rate/Area]43 mL/min/{1.73_m2}>=60 [facility] CenterGlucose [Mass/Vol]297 mg/aT43-355GawtsuludSt. Mary'S Medical CenterPotassium [Moles/Vol]4.4 mmol/L3.5-5.1FMarion HospitalProtein [Mass/Vol]6.0 g/dL6.4-8.2FMarion Hospital Sodium [Moles/Vol]133 mmol/Z548-499MdxgbasspSt. Mary'S Medical CenterUrea nitrogen [Mass/Vol]28.0 mg/dL7.0-18.0[facility] CenterUrea nitrogen/Creatinine [Mass ratio]14.4 mg/mgSt. Mary'S [facility] Center Laboratory - Hematology and Cell countson 25-02-2986Dfwssygn granulocytes/100 WBC (Bld)0.4 %0.0-0.5FMarion HospitalLeukocytes [#/volume] corrected for nucleated erythrocytes in Blood by Automated counon 51-56-8627RER corrected for nucl RBC Auto (Bld) [#/Vol]10.1 10 3/uL4.0-11.0[facility] CenterLymphocytes Auto (Bld) [#/Vol]on 77-25-5301Elfyaornyek (Bld) [#/Vol]1.5 10 3/uL1.2-3.8[facility] CenterLymphocytes/100 WBC Auto (Bld)on 75-29-7454Yytlxdrjdoz/100 WBC (Bld)14.4 %20.5-60.0[facility] CenterMCH Auto (RBC) [Entitic mass]on 88-42-7912IWX (RBC) [Entitic mass]22.5 pg25.9-34.0[facility] CenterMCHC Auto (RBC) [Mass/Vol]on 30-59-1171JUCZ (RBC) [Mass/Vol]29.2 g/dL29.9-35.2FMarion HospitalMCV Auto (RBC) [Entitic vol]on 14-24-1410IHO (RBC) [Entitic vol] 77.0 fL80.0-94.0[facility] CenterMonocytes Auto (Bld) [#/Vol]on 49-22-1289Lafupzmyf (Bld) [#/Vol]1.1 10 3/uL0.3-0.8[facility] CenterMonocytes/100 WBC Auto (Bld)on 19-81-5228Nwgayjuzc/100 WBC (Bld)10.4 % 1.7-12.0[facility] CenterNeutrophils Auto (Bld) [#/Vol]on 17-16-0015Fyiokkdnmyc (Bld) [#/Vol]7.2 10 3/uL1.4-6.5FMarion HospitalNeutrophils/100 WBC Auto (Bld)on 14-47-3652Bhpptkicvry/100 WBC (Bld)70.8 % 43.0-75.0[facility] CenterNo Panel Informationon 08-06-2023 Vancomycin Level Lxpkre31.6 ug/mL5.0-20.0[facility] Eosinophils # (Auto)0.3 10 3/uL0.0-0.7FMarion HospitalImmature Granulocyte # (Auto)0.04 10 3/uL0.00-0.03[facility] Platelet mean volume Auto (Bld) [Entitic vol]on 61-59-6127Ziexpzak mean volume (Bld) [Entitic vol]12.2 fL9.5-13.5FMarion HospitalPlatelets Auto (Bld) [#/Vol]on 74-80-0851Jvmpaycxq (Bld) [#/Vol]190 10 3/mD722-640 [facility] CenterRBC Auto (Bld) [#/Vol]on 78-18-9971DHX (Bld) [#/Vol]3.91 10 6/uL4.70-6.10[facility] Centererum or plasma albumin/globulin mass ratioon 29-09-8235Gmxqbra/Globulin [Mass ratio]0.5 {ratio} [facility] CenterSerum or plasma anion gap determinationon 45-40-2151Aqltw gap [Moles/Vol]13.4 mmol/LFMarion Hospital Automated epithelial cells count in urine sediment (number/area)on 08-05-2023 Epithelial cells Auto (Urine sed) [#/Area]RARE #/LPFNONE/RARESt. Mary'S Medical CenterAutomated leukocytes count in urine sediment (number/area)on 09-38-8564OMH Auto (Urine sed) [#/Area]NONE SEEN #/HPF0-2FMarion HospitalAutomated urine specific gravity by refractometryon 08-05-2023 Specific gravity Refractometry automated (U) [Rel density]<=1.0051.005-1.025 [facility] CenterBasophils Auto (Bld) [#/Vol]on 08-05-2023 Basophils (Bld) [#/Vol]0.1 10 3/uL0.0-0.1FMarion Hospital Basophils/100 WBC Auto (Bld)on 56-84-9073Edtqvsros/100 WBC (Bld)0.7 %0.2-2.0 [facility] CenterBilirubin Auto test strip (U) [Mass/Vol]on 16-52-4787Kufwfyytj (U) [Mass/Vol]NegativeNEGATIVESt. Mary'S Medical CenterCasts typing in urine sediment by light microscopyon 54-84-4005Susji LM Nom (Urine sed)NONE SEEN #/LPFNONE [facility] HospitalColor Auto (U)on 88-87-9433Iykpx (U)LT. YELLOWYELLOWSt. Mary'S Medical Center Eosinophils/100 WBC Auto (Bld)on 08-37-1425Acrlmmyowwl/100 WBC (Bld)2.5 %0.9-7.0 [facility] CenterErythrocyte distribution width Auto (RBC) [Ratio]on 75-18-1518Tepffggwwxv distribution width (RBC) [Ratio]16.8 %11.0-15.0 [facility] CenterEstimated glomerular filtration rate (GFR) non- Americanon 49-36-7655HXE/1.73 sq M.predicted among non-blacks MDRD (S/P/Bld) [Vol rate/Area]42 mL/min/{1.73_m2}>=60[facility] Medical CenterGlobulin Calc (S) [Mass/Vol]on 89-66-3310Yawpdhlh (S) [Mass/Vol]4.1 g/dL [facility] Medical CenterGlucose mean value [Mass/volume] in Blood Estimated from glycated hemoglobinon 13-23-3556Moxztxq glucose Estimated from glycated hemoglobin (Bld) [Mass/Vol]214 mg/dLSt. Mary'S Medical Center Hematocrit Auto (Bld) [Volume fraction]on 49-48-3812Kdwkkucqes (Bld) [Volume fraction]31.8 %42.0-54.0[facility] CenterHemoglobin [Mass/volume] in Bloodon 72-71-7944Aujvkdcdde (Bld) [Mass/Vol]9.4 g/dL14.0-18.0 [facility] CenterKetones Auto test strip (U) [Mass/Vol]on 79-04-9540Ytovtbj (U) [Mass/Vol]NegativeNEGATIVESt. Mary'S Medical CenterLaboratory - Chemistry and Chemistry - challengeon 25-31-7025Clgzaqd [Mass/Vol]2.3 g/dL3.4-5.0[facility] CenterALP [Catalytic activity/Vol]111 U/P63-898SnblarbnxSt. Mary'S Medical CenterALT [Catalytic activity/Vol]11 U/R26-97LwaqgjmrsSt. Mary'S Medical CenterAST [Catalytic activity/Vol]11 U/G40-05MptpdtpteSt. Mary'S Medical CenterBilirubin [Mass/Vol]0.5 mg/dL0.2-1.0[facility] CenterCalcium [Mass/Vol]8.1 mg/dL 8.5-10.1FMarion HospitalChloride [Moles/Vol]101 mmol/L98-107 [facility] CenterCO2 [Moles/Vol]25.6 mmol/L21.0-32.0[facility] CenterCreatinine [Mass/Vol]1.68 mg/dL0.70-1.30[facility] CenterGFR/1.73 sq M.predicted MDRD (S/P/Bld) [Vol rate/Area]51 mL/min/{1.73_m2}>=60[facility] CenterGlucose [Mass/Vol]111 mg/dL 74-106St[facility] CenterPotassium [Moles/Vol]3.7 mmol/L3.5-5.1 [facility] CenterProtein [Mass/Vol]6.4 g/dL6.4-8.2FTriHealth Good Samaritan Hospitalodium [Moles/Vol]138 mmol/F087-427UiilazoaaSt. Mary'S Medical CenterUrea nitrogen [Mass/Vol]17.0 mg/dL7.0-18.0[facility] CenterUrea nitrogen/Creatinine [Mass ratio]10.1 mg/mgSt. Mary'S Medical CenterLaboratory - Hematology and Cell countson 17-87-0451IrV7o (Bld) [Mass fraction]9.1 %4.5-6.2FMarion HospitalComment on above:ADA RECOMMENDED LIMIT 4.0 - 6.0ADA THERAPEUTIC TARGET < 7.0ACTION SUGGESTED> 7.0 Immature granulocytes/100 WBC (Bld)0.4 %0.0-0.5FMarion Hospital Laboratory - Microbiology and Antimicrobial susceptibilityOrdered By: Teresa Lynch on 52-23-5885Mmyvcvfzwyl observation Gram stain Nom (Unsp spec)[facility] CenterLeukocytes [#/volume] corrected for nucleated erythrocytes in Blood by Automated counon 24-02-7020KXE corrected for nucl RBC Auto (Bld) [#/Vol]12.3 10 3/uL4.0-11.0[facility] Lymphocytes Auto (Bld) [#/Vol]on 20-69-2009Prqfpwwsqfb (Bld) [#/Vol]1.5 10 3/uL 1.2-3.8[facility] CenterLymphocytes/100 WBC Auto (Bld)on 57-17-5536Isuooclcnnm/100 WBC (Bld)11.8 %20.5-60.0[facility] CenterMCH Auto (RBC) [Entitic mass]on 50-09-6192LTF (RBC) [Entitic mass]22.4 pg 25.9-34.0[facility] CenterMCHC Auto (RBC) [Mass/Vol]on 67-54-9069XSTW (RBC) [Mass/Vol]29.6 g/dL29.9-35.2FMarion HospitalMCV Auto (RBC) [Entitic vol]on 41-41-7463RSC (RBC) [Entitic vol]75.9 fL 80.0-94.0[facility] CenterMonocytes Auto (Bld) [#/Vol]on 74-53-8320Xaeahodel (Bld) [#/Vol]1.3 10 3/uL0.3-0.8[facility] CenterMonocytes/100 WBC Auto (Bld)on 55-56-8562Mycedejui/100 WBC (Bld)10.7 % 1.7-12.0[facility] CenterMucus LM Ql (Urine sed)on 08-05-2023 Mucus Ql (Urine sed)NONE SEENNONE SEENSt. Mary'S Medical Center Neutrophils Auto (Bld) [#/Vol]on 01-87-9657Fjqylzhkwmo (Bld) [#/Vol]9.1 10 3/uL 1.4-6.5FMarion HospitalNeutrophils/100 WBC Auto (Bld)on 14-57-8833Ptihqpinvwi/100 WBC (Bld)73.9 %43.0-75.0[facility] CenterNo Panel Informationon 89-08-2525Joskulmikcy # (Auto)0.3 10 3/uL0.0-0.7 [facility] CenterImmature Granulocyte # (Auto)0.05 10 3/uL 0.00-0.03[facility] CenterPlatelet mean volume Auto (Bld) [Entitic vol]on 61-70-6389Xzedgszk mean volume (Bld) [Entitic vol]11.2 fL 9.5-13.5FMarion HospitalPlatelets Auto (Bld) [#/Vol]on 81-82-4769Cmrjgnuqe (Bld) [#/Vol]184 10 3/nM458-629PdvrdkmoqSt. Mary'S Medical CenterProtein Auto test strip (U) [Mass/Vol]on 58-71-7578Wzseszj (U) [Mass/Vol] NegativeNEG/TRACESt. Mary'S Medical CenterRBC Auto (Bld) [#/Vol]on 51-69-9296LPO (Bld) [#/Vol]4.19 10 6/uL4.70-6.10[facility] Centererum or plasma albumin/globulin mass ratioon 38-36-3397Rfdypec/Globulin [Mass ratio]0.6 {ratio}[facility] Centererum or plasma anion gap determinationon 32-31-3327Oacgp gap [Moles/Vol]15.1 mmol/LFTriHealth Good Samaritan Hospitalpecific gravity Auto test strip (U) [Rel density]on 08-05-2023 Specific gravity (U) [Rel density]CLEARCLEARFMarion Hospital Urine bacteria detection by automated methodon 07-10-4472Ovrnrdht Auto Ql (U) TRACE #/HPFNONE [facility] HospitalUrine glucose measurement by test strip (mass/volume)on 78-85-0563Mgdwmmn Test strip (U) [Mass/Vol]>=1000 mg/dLNEGATIVESt. Mary'S Medical CenterUrine hemoglobin detection by automated test stripon 44-44-0713Wduugihjnt Auto test strip Ql (U)Negative NEGATIVESt. Mary'S Medical CenterUrine nitrite detection by automated test stripon 07-95-3009Ibmfrls Auto test strip Ql (U)NegativeNEGATIVESt. Mary'S Medical CenterUrine sediment crystal identification by light microscopy on 75-55-9130Ygdjumzz LM Nom (Urine sed)None Seen #/HPFNone [facility] HospitalUrine sediment leukocyte count by microscopy (number/high power field)on 24-40-9056UGS LM.HPF (Urine sed) [#/Area]NONE SEEN #/HPFNONE [facility] HospitalUrobilinogen Auto test strip (U) [Mass/Vol] on 02-44-3624Anhpzresspii Qn (U)0.2 {Brendan'U}/dL0.2-1.0[facility] CenterpH Auto test strip (U)on 87-73-2157mK (U)6.0 [pH]5.0-9.0[facility] CenterBasophils Auto (Bld) [#/Vol]on 95-84-5940Ctzgssduw (Bld) [#/Vol]0.1 10 3/uL0.0-0.1FMarion HospitalBasophils/100 WBC Auto (Bld)on 76-61-5552Fafpwdfru/100 WBC (Bld)0.8 %0.2-2.0[facility] CenterEosinophils/100 WBC Auto (Bld)on 82-09-9809Eawnavicvuw/100 WBC (Bld)2.8 % 0.9-7.0[facility] CenterErythrocyte distribution width Auto (RBC) [Ratio]on 58-77-5262Ykzmewygfmi distribution width (RBC) [Ratio]16.9 % 11.0-15.0[facility] CenterEstimated glomerular filtration rate (GFR) non- Americanon 45-37-7317SQQ/1.73 sq M.predicted among non-blacks MDRD (S/P/Bld) [Vol rate/Area]33 mL/min/{1.73_m2}>=60[facility] CenterGlobulin Calc (S) [Mass/Vol]on 36-59-1775Exjmgare (S) [Mass/Vol]4.4 g/dL [facility] CenterHematocrit Auto (Bld) [Volume fraction]on 72-52-9746Zcsibswznt (Bld) [Volume fraction]32.6 %42.0-54.0[facility] CenterHemoglobin [Mass/volume] in Bloodon 77-09-6739Plijjzzbzi (Bld) [Mass/Vol]9.6 g/dL14.0-18.0[facility] CenterINR in Platelet poor plasma by Coagulation assayon 87-83-2012BFU Coag (PPP) [Relative time]1.05 {INR}[facility] CenterComment on above:DESIRED INR:2.0-3.0 CONDITIONS NOT LISTED BELOW2.5-3.5 FOR PROSTHETIC HEART VALVE REPLACEMENT2.5-3.5 RECURRENT THROMBOSISLaboratory - Chemistry and Chemistry - challengeon 43-75-8380Ewgujim [Mass/Vol]2.4 g/dL3.4-5.0[facility] CenterALP [Catalytic activity/Vol]109 U/M15-903MecodglweSt. Mary'S Medical CenterALT [Catalytic activity/Vol]9 U/U79-92UoodzmbaeSt. Mary'S Medical CenterAST [Catalytic activity/Vol]U/W33-06DvcetwdaeSt. Mary'S Medical CenterBilirubin [Mass/Vol]0.4 mg/dL0.2-1.0[facility] CenterCalcium [Mass/Vol]8.0 mg/dL8.5-10.1FMarion HospitalChloride [Moles/Vol]96 mmol/L 98-107St[facility] CenterCO2 [Moles/Vol]29.2 mmol/L21.0-32.0 [facility] CenterCreatinine [Mass/Vol]2.06 mg/dL0.70-1.30 [facility] CenterGFR/1.73 sq M.predicted MDRD (S/P/Bld) [Vol rate/Area]40 mL/min/{1.73_m2}>=60[facility] CenterGlucose [Mass/Vol]329 mg/rO36-501EgtcliduoSt. Mary'S Medical CenterPotassium [Moles/Vol] 3.5 mmol/L3.5-5.1FMarion HospitalProtein [Mass/Vol]6.8 g/dL 6.4-8.2FTriHealth Good Samaritan Hospitalodium [Moles/Vol]132 mmol/I289-859 [facility] CenterUrea nitrogen [Mass/Vol]20.0 mg/dL7.0-18.0 [facility] CenterUrea nitrogen/Creatinine [Mass ratio]9.7 mg/mg [facility] CenterLaboratory - Hematology and Cell countson 05-75-3096JCX (Bld) [Velocity]89 mm/h<=20[facility] Immature granulocytes/100 WBC (Bld)0.3 %0.0-0.5FMarion Hospital Laboratory - Microbiology and Antimicrobial susceptibilityOrdered By: Teresa Lynch on 24-81-6419Hmdntvkmyhj observation Gram stain Nom (Unsp spec)[facility] CenterLeukocytes [#/volume] corrected for nucleated erythrocytes in Blood by Automated counon 15-57-6866XDC corrected for nucl RBC Auto (Bld) [#/Vol]11.6 10 3/uL4.0-11.0[facility] Lymphocytes Auto (Bld) [#/Vol]on 60-07-3865Ckvtafblees (Bld) [#/Vol]1.7 10 3/uL 1.2-3.8[facility] CenterLymphocytes/100 WBC Auto (Bld)on 78-71-1931Jyhwqcozapq/100 WBC (Bld)14.9 %20.5-60.0[facility] HospitalH Auto (RBC) [Entitic mass]on 60-47-4625GYF (RBC) [Entitic mass]22.3 pg 25.9-34.0[facility] CenterMCHC Auto (RBC) [Mass/Vol]on 64-22-7197RWWJ (RBC) [Mass/Vol]29.4 g/dL29.9-35.2FMarion HospitalMCV Auto (RBC) [Entitic vol]on 83-31-8535SZN (RBC) [Entitic vol]75.8 fL 80.0-94.0[facility] CenterMonocytes Auto (Bld) [#/Vol]on 99-76-8827Jthzjztgb (Bld) [#/Vol]1.2 10 3/uL0.3-0.8[facility] CenterMonocytes/100 WBC Auto (Bld)on 86-94-8867Pxmwvgwyl/100 WBC (Bld)10.4 % 1.7-12.0[facility] CenterNeutrophils Auto (Bld) [#/Vol]on 26-79-6497Xyaohybavqe (Bld) [#/Vol]8.2 10 3/uL1.4-6.5FMarion HospitalNeutrophils/100 WBC Auto (Bld)on 53-42-7761Ieendgzglry/100 WBC (Bld)70.8 % 43.0-75.0[facility] CenterNo Panel InformationOrdered By: Teresa Lynch on 40-06-5981Qgqkp Culture 2FMarion HospitalBlood Culture 1FMarion HospitalWound CultureSt. Mary'S Medical Center No Panel Informationon 99-52-8213Yuactuz & Anaerobic SusceptibilitySt. Mary'S Medical CenterMiscellaneous Test CommentSee commentSt. Mary'S Medical CenterComment on above:Specimen Source: FOOT - Foot - Foot - 603.950C- Reactive Protein, Oedwftiujfik36.62 mg/dL<=0.50[facility] Eosinophils # (Auto)0.3 10 3/uL0.0-0.7FMarion HospitalImmature Granulocyte # (Auto)0.04 10 3/uL0.00-0.03[facility] Platelet mean volume Auto (Bld) [Entitic vol]on 18-63-5030Defxgudb mean volume (Bld) [Entitic vol]11.5 fL9.5-13.5FMarion HospitalPlatelets Auto (Bld) [#/Vol]on 06-14-8830Bhsyfobww (Bld) [#/Vol]206 10 3/tY541-197 [facility] CenterProthrombin time (PT)on 09-98-3288ZL Coag (PPP) [Time]11.1 s9.0-11.6FMarion HospitalRBC Auto (Bld) [#/Vol]on 72-37-4795ZOO (Bld) [#/Vol]4.30 10 6/uL4.70-6.10[facility] Centererum or plasma albumin/globulin mass ratioon 77-99-2245Iqfzbhv/Globulin [Mass ratio]0.5 {ratio}[facility] Centererum or plasma anion gap determinationon 92-39-1501Uzoym gap [Moles/Vol]10.3 mmol/LFTriHealth Good Samaritan Hospitalerum procalcitonin measurementon 62-12-0915Jteqwnoceqeyc [Mass/Vol]0.10 ng/mL0.00-0.50[facility] CenterBasophils Auto (Bld) [#/Vol]on 21-40-2825Fwfokdtdn (Bld) [#/Vol]0.1 10 3/uL0.0-0.1FMarion HospitalBasophils/100 WBC Auto (Bld)on 69-40-8516Qvijhiwre/100 WBC (Bld)0.7 %0.2-2.0[facility] CenterEosinophils/100 WBC Auto (Bld)on 12-94-4860Hffwcntckkj/100 WBC (Bld)1.8 %0.9-7.0[facility] CenterErythrocyte distribution width Auto (RBC) [Ratio]on 08-03-2023 Erythrocyte distribution width (RBC) [Ratio]17.0 %11.0-15.0[facility] CenterEstimated glomerular filtration rate (GFR) non- Americanon 85-80-1174LUB/1.73 sq M.predicted among non-blacks MDRD (S/P/Bld) [Vol rate/Area]27 mL/min/{1.73_m2}>=60[facility] CenterGlobulin Calc (S) [Mass/Vol]on 36-28-2273Wtdhaich (S) [Mass/Vol]5.0 g/dLSt. Mary'S Medical CenterHematocrit Auto (Bld) [Volume fraction]on 58-14-4590Ntnykajzza (Bld) [Volume fraction]38.9 %42.0-54.0[facility] Hemoglobin [Mass/volume] in Bloodon 57-81-3218Dmizztboby (Bld) [Mass/Vol]11.8 g/dL14.0-18.0[facility] CenterLaboratory - Chemistry and Chemistry - challengeon 12-98-5797Lganpfg [Moles/Vol]1.6 mmol/L0.4-2.0[facility] CenterAlbumin [Mass/Vol]3.3 g/dL3.4-5.0[facility] CenterALP [Catalytic activity/Vol]134 U/W75-149ByhktfhuqSt. Mary'S Medical CenterALT [Catalytic activity/Vol]13 U/Z56-84AhhpbzdydSt. Mary'S Medical CenterAST [Catalytic activity/Vol]U/C04-45MsqboswuqSt. [facility]S [facility] Bilirubin [Mass/Vol]0.6 mg/dL0.2-1.0[facility] CenterCalcium [Mass/Vol]9.3 mg/dL8.5-10.1FMarion HospitalChloride [Moles/Vol] 92 mmol/J39-731SrqxfpiveSt. Mary'S Medical CenterCO2 [Moles/Vol]31.0 mmol/L 21.0-32.0[facility] CenterCreatinine [Mass/Vol]2.45 mg/dL 0.70-1.30[facility] CenterGFR/1.73 sq M.predicted MDRD (S/P/Bld) [Vol rate/Area]33 mL/min/{1.73_m2}>=60[facility] CenterGlucose [Mass/Vol]310 mg/oA08-155ArdexpmfwSt. Mary'S Medical CenterPotassium [Moles/Vol] 3.7 mmol/L3.5-5.1FMarion HospitalProtein [Mass/Vol]8.3 g/dL 6.4-8.2FTriHealth Good Samaritan Hospitalodium [Moles/Vol]133 mmol/X071-364 [facility] CenterUrea nitrogen [Mass/Vol]23.0 mg/dL7.0-18.0 [facility] CenterUrea nitrogen/Creatinine [Mass ratio]9.4 mg/mg [facility] CenterLaboratory - Hematology and Cell countson 93-20-2668ASV (Bld) [Velocity]118 mm/h<=20[facility] Immature granulocytes/100 WBC (Bld)0.4 %0.0-0.5FMarion Hospital Leukocytes [#/volume] corrected for nucleated erythrocytes in Blood by Automated counon 40-19-9462JVT corrected for nucl RBC Auto (Bld) [#/Vol]14.6 10 3/uL 4.0-11.0[facility] CenterLymphocytes Auto (Bld) [#/Vol]on 38-86-5732Scitvtnikjp (Bld) [#/Vol]2.1 10 3/uL1.2-3.8[facility] CenterLymphocytes/100 WBC Auto (Bld)on 32-41-0958Ameqhpseggs/100 WBC (Bld)14.3 % 20.5-60.0[facility] HospitalH Auto (RBC) [Entitic mass]on 12-05-7276EDF (RBC) [Entitic mass]22.6 pg25.9-34.0[facility] CenterMCHC Auto (RBC) [Mass/Vol]on 81-62-1338AFTH (RBC) [Mass/Vol]30.3 g/dL 29.9-35.2FMarion HospitalMCV Auto (RBC) [Entitic vol]on 25-01-0785JOG (RBC) [Entitic vol]74.4 fL80.0-94.0[facility] CenterMonocytes Auto (Bld) [#/Vol]on 43-63-9554Khzovgyyg (Bld) [#/Vol]1.4 10 3/uL0.3-0.8[facility] CenterMonocytes/100 WBC Auto (Bld)on 85-83-6482Ikaupxmgi/100 WBC (Bld)9.4 %1.7-12.0[facility] Neutrophils Auto (Bld) [#/Vol]on 26-80-6816Puomspgkbyc (Bld) [#/Vol]10.7 10 3/uL 1.4-6.5FMarion HospitalNeutrophils/100 WBC Auto (Bld)on 20-53-9995Ereomvfmqeb/100 WBC (Bld)73.4 %43.0-75.0[facility] CenterNo Panel Informationon 14-28-6373U-Reactive Protein, Rrwpfysksqzz98.63 mg/dL<=0.50[facility] CenterEosinophils # (Auto)0.3 10 3/uL 0.0-0.7FMarion HospitalImmature Granulocyte # (Auto)0.06 10 3/uL0.00-0.03[facility] CenterVenous Blood Partial Pressure CO2 44.8 mm[Hg]40.0-52.0[facility] CenterVenous Blood pH7.432 7.330-7.430St[facility] CenterNo Panel InformationOrdered By: Teresa Lynch on 45-65-5892Cqavb Culture 2FMarion HospitalBlood Culture 1FMarion HospitalPlatelet mean volume Auto (Bld) [Entitic vol]on 73-81-7353Jdvtuazu mean volume (Bld) [Entitic vol]11.4 fL 9.5-13.5FMarion HospitalPlatelets Auto (Bld) [#/Vol]on 38-59-1199Wyzyxuusn (Bld) [#/Vol]252 10 3/xS394-360XfwpdeiixSt. Mary'S Medical CenterRBC Auto (Bld) [#/Vol]on 35-34-6013XSA (Bld) [#/Vol]5.23 10 6/uL4.70-6.10 [facility] Centererum or plasma albumin/globulin mass ratioon 00-78-6098Itogvmd/Globulin [Mass ratio]0.7 {ratio}[facility] Centererum or plasma anion gap determinationon 39-86-4733Njzxn gap [Moles/Vol] 13.7 mmol/LFMarion HospitalActivated partial thromboplastin time (aPTT) in platelet poor plasma by coagulation aOrdered By: Abdullahi Wilson on 37-98-5236nLOL Coag (PPP) [Time]29.4 s25.1-36.5FMarion HospitalComment on above:A hematocrit value greater than 55% may lead to inaccurate results in coagulation testing. Patientshaving hematocrit values >55% require a special collection tube for coagulation studies. Please contact the laboratory at [phone] for redraw instructions.Alanine aminotransferase [Enzymatic activity/volume] in Serum or PlasmaOrdered By: Abdullahi iWlson on 68-12-8353SPK [Catalytic activity/Vol]9 U/L7-52[facility] Albumin [Mass/volume] in Serum or Plasma by Bromocresol green (BCG) dye binding methoOrdered By: Abdullahi Wilson on 02-92-7171Kprwybn BCG dye [Mass/Vol]3.9 g/dL 3.5-5.7FMarion HospitalAlkaline phosphatase [Enzymatic activity/volume] in Serum or PlasmaOrdered By: Abudllahi Wilson on 63-27-7460QGZ [Catalytic activity/Vol]106 U/B37-200EaqqiptegSt. Mary'S Medical CenterAspartate aminotransferase [Enzymatic activity/volume] in Serum or PlasmaOrdered By: Abdullahi Wilson on 68-59-9733MVA [Catalytic activity/Vol]8 U/A11-02PnkjwwjmlSt. Mary'S Medical CenterBasophils Auto (Bld) [#/Vol]Ordered By: Abdullahi Wilson on 46-17-1850Rovprdqyf (Bld) [#/Vol]0.1 10*3/uL0.0-0.2FMarion HospitalBasophils/100 WBC Auto (Bld)Ordered By: Abdullahi Wilson on 07-12-2023 Basophils/100 WBC (Bld)1.1 %.[facility] CenterBilirubin.total [Mass/volume] in Serum or PlasmaOrdered By: Abdullahi Wilson on 07-12-2023 Bilirubin [Mass/Vol]0.4 mg/dL0.3-1.0[facility] CenterCalcium [Mass/volume] in Serum or PlasmaOrdered By: Abdullahi Wilson on 23-33-7980Vsuaalw [Mass/Vol]8.5 mg/dL8.6-10.3FMarion HospitalCarbon dioxide, total [Moles/volume] in Serum or PlasmaOrdered By: Abdullahi Wilson on 07-12-2023 CO2 [Moles/Vol]24.5 mmol/L21.0-31.0[facility] CenterChloride [Moles/volume] in Serum or PlasmaOrdered By: Abdullahi Wilson on 07-12-2023 Chloride [Moles/Vol]102 mmol/T25-222PzydeunrySt. Mary'S Medical CenterCreatine kinase [Enzymatic activity/volume] in Serum or PlasmaOrdered By: Abdullahi Wilson on 98-72-0594JV [Catalytic activity/Vol]55 U/N75-069YrtydkebpSt. Mary'S Medical CenterCreatinine [Mass/volume] in Serum or PlasmaOrdered By: Abdullahi Wilson on 82-78-9799Pkkiqirpby [Mass/Vol]1.82 mg/dL0.70-1.30[facility] CenterEosinophils Auto (Bld) [#/Vol]Ordered By: Abdullahi Wilson on 07-12-2023 Eosinophils (Bld) [#/Vol]0.3 10*3/uL0.0-0.45[facility] Eosinophils/100 WBC Auto (Bld)Ordered By: Abdullahi Wilson on 07-12-2023 Eosinophils/100 WBC (Bld)3.3 %.[facility] CenterErythrocyte distribution width Auto (RBC) [Ratio]Ordered By: Abdullahi Wilson on 07-12-2023 Erythrocyte distribution width (RBC) [Ratio]17.1 %12.0-14.8[facility] CenterGlobulin Calc (S) [Mass/Vol]Ordered By: Abdullahi Wilson on 66-83-5916Dmvhxrkv (S) [Mass/Vol]3.1 g/dLSt. Mary'S Medical Center Glucose [Mass/volume] in Serum or PlasmaOrdered By: Abdullahi Wilson on 07-12-2023 Glucose [Mass/Vol]302 mg/tP98-693MzcnbphlqSt. Mary'S Medical CenterComment on above:ADA recommended reference rangeRandom Glucose Reference Range is dependent on time and content of last meal. Glucose of more than 200 mg/dL in a nonstressed, ambulatory subject supports the diagnosisof Diabetes Mellitus. Hematocrit Auto (Bld) [Volume fraction]Ordered By: Abdullahi Wilson on 07-12-2023 Hematocrit (Bld) [Volume fraction]32.7 %38.8-50.0[facility] CenterHemoglobin [Mass/volume] in BloodOrdered By: Abdullahi Wilson on 07-12-2023 Hemoglobin (Bld) [Mass/Vol]10.6 g/dL13.0-17.0[facility] INR in Platelet poor plasma by Coagulation assayOrdered By: Abdullahi Wilson on 73-79-9758GPV Coag (PPP) [Relative time]1.1 {INR}[facility] CenterComment on above:INR Therapeutic Range A) Pre- and [...] by Automated counOrdered By: Abdullahi Wilson on 18-55-3202XAP corrected for nucl RBC Auto (Bld) [#/Vol]9.5 10*3/uL4.1-10.5FMarion HospitalLymphocytes Auto (Bld) [#/Vol]Ordered By: Abdullahi Wilson on 07-12-2023 Lymphocytes (Bld) [#/Vol]1.9 10*3/uL1.00-4.8[facility] Lymphocytes/100 WBC Auto (Bld)Ordered By: Abdullahi Wilson on 07-12-2023 Lymphocytes/100 WBC (Bld)20.0 %.[facility] HospitalH Auto (RBC) [Entitic mass]Ordered By: Abdullahi Wilson on 07-57-7725FGG (RBC) [Entitic mass] 22.8 pg27.5-35.2FMarion HospitalMCHC Auto (RBC) [Mass/Vol] Ordered By: Abdullahi Wilson on 37-67-4960KTYB (RBC) [Mass/Vol]32.4 g/dL32.5-35.6 [facility] CenterMCV Auto (RBC) [Entitic vol]Ordered By: Abdullahi Wilson on 23-72-7044BPD (RBC) [Entitic vol]70.6 fL83.5-101St[facility] CenterMonocyte distribution width [Entitic volume] in Blood by Automated Ordered By: Abdullahi Wilson on 32-89-0107Mkgwenfb distribution width Auto (Bld) [Entitic vol]18.12 %0.00-20.00[facility] CenterMonocytes Auto (Bld) [#/Vol]Ordered By: Abdullahi Wilson on 60-60-6745Gqkpanfhw (Bld) [#/Vol]1.0 10*3/uL0.0-0.8[facility] CenterMonocytes/100 WBC Auto (Bld) Ordered By: Abdullahi Wilson on 97-82-9340Ocahyshqn/100 WBC (Bld)10.2 %.[facility] CenterNatriuretic peptide B [Mass/Vol]Ordered By: Abdullahi Wilson on 85-97-6625Cbtghyxshxd peptide B (Bld) [Mass/Vol]34.0 pg/mL5-100 [facility] CenterNeutrophils Auto (Bld) [#/Vol]Ordered By: Abdullahi Wilson on 43-83-1595Yslcbugwwmm (Bld) [#/Vol]6.2 10*3/uL1.8-7.7FMarion HospitalNeutrophils/100 WBC Auto (Bld)Ordered By: Abdullahi Wilson on 00-37-9514Iesbwkygcth/100 WBC (Bld)65.4 %.[facility] No Panel InformationOrdered By: Abdullahi Wilson on 13-60-9968Kzwyzjjzb GFR (CKD-EPI)42.789 mL/MinSt. Mary'S Medical CenterPharmacy Creatinine Clearance (Chem54.64St[facility] CenterNucleated erythrocytes [Presence] in Blood by Automated countOrdered By: Abdullahi Wilson on 07-12-2023 Nucleated RBC Auto Ql (Bld)0.1 /100{WBC}0-0.5FMarion Hospital Platelet mean volume Auto (Bld) [Entitic vol]Ordered By: Abdullahi Wilson on 66-28-9529Leusepxu mean volume (Bld) [Entitic vol]9.1 fL6.6-10.1FMarion HospitalPlatelets Auto (Bld) [#/Vol]Ordered By: Abdullahi Wilson on 75-84-1973Umhlzaycb (Bld) [#/Vol]233 10*3/qO656-675HmywqnzdvSt. Mary'S Medical CenterPotassium [Moles/volume] in Serum or PlasmaOrdered By: Abdullahi Wilson on 84-95-4461Uvwhjogko [Moles/Vol]3.9 mmol/L3.5-5.1FMarion HospitalProtein [Mass/volume] in Serum or PlasmaOrdered By: Abdullahi Wilson on 81-57-2256Bptihxw [Mass/Vol]7.0 g/dL6.4-8.9[facility] Prothrombin time (PT)Ordered By: Abdullahi Wilson on 22-59-0091CR Coag (PPP) [Time]12.1 s9.0-12.9St. [facility] Medical CenterComment on above:A hematocrit value greater than 55% may lead to inaccurate results in coagulation testing. Patientshaving hematocrit values >55% require a special collection tube for coagulation studies. Please contact the laboratory at [phone] for redraw instructions.RBC Auto (Bld) [#/Vol]Ordered By: Abdullahi Wilson on 98-28-7663ZDU (Bld) [#/Vol]4.63 10*6/uL3.90-5.60[facility] Centererum or plasma albumin/globulin mass ratioOrdered By: Abdullahi Wilson on 80-27-1080Uffgxvp/Globulin [Mass ratio]1.3 {ratio}[facility] Centererum or plasma anion gap determinationOrdered By: Abdullahi Wilson on 21-63-6486Qwwlp gap [Moles/Vol]13.4 mmol/L6.0-15.0[facility] Centerodium [Moles/volume] in Serum or PlasmaOrdered By: Abdullahi Wilson on 51-51-6635Zzzzcu [Moles/Vol]136 mmol/R653-166PxkazfwfuSt. Mary'S Medical Center Troponin I.cardiac [Mass/volume] in Serum or Plasma by Detection limit <= 0.01 ng/Ordered By: Abdullahi Wilson on 98-52-5718Obuqokfv I.cardiac DL <= 0.01 ng/mL [Mass/Vol]4.6 pg/mL0.0-20.0[facility] Medical CenterUrea nitrogen [Mass/volume] in Serum or PlasmaOrdered By: Abdullahi Wilson on 54-21-2040Xdhi nitrogen [Mass/Vol]16 mg/dL7-25St. [facility]S Medical CenterWBC Auto (Bld) [#/Vol]Ordered By: Abdullahi Wilson on 28-32-1161ROK (Bld) [#/Vol]9.5 10*3/uL 4.1-10.5FMarion HospitalPatient Educationon 49-56-6561Oqoijdw EducationUrology Benign Prostatic Hyperplasia Benign prostatic hyperplasia [...] Follow these instructions at home: ? Take fvjt-iev-hvqvrsq and prescription medicines only as told by [...] from the medicine (more content not included)... [facility]Ret[facility] - Clinical Noteon 60-56-2648Scgvny - Clinical [id number]#1.00TIFFNormalMercy Health Defiance HospitalUrology Office/Clinic Noteon 97-98-2451Rakmcdh Office/Clinic Note Chief Complaint S/p to Cysto [...] Contact Information SOLEDAD HERRERA, Yeyo Blum, URL [facility] [place] [id number]- Additional Instructions: 1 month w/ cath volumes [...] CHF (congestive heart failure) (more content not included)...[facility] HospitalComment on above: Result Comment: Electronically Signed By: Yeyo ROWE MD\.br\Date and Time Signed: 06/02/23 12:16 EST\.br\Electronically Co-Signed By: Mattie Foster.br\Date and Time Co-Signed: 06/02/2312:04 ESTPatient Educationon 05-03-2023 Patient EducationNoKettering Health MiamisburgPathology Noteon 05-01-2023 Pathology [id number]#1.00TIFTrinity Health SystemLab Reportson 81-18-0033Wlk Reports [id number]#1.00TIFTrinity Health SystemOperative Reporton 24-37-4106Mzgbaeaga Report [id number]#1.00TIFTrinity Health SystemPatient Correspondenceon 43-80-1013Cwgxsfe Correspondence [id number]#1.00TIFFWyandot Memorial HospitalLab Reportson 75-70-4782Vps Reports [id number]#1.00TIFTrinity Health SystemRAD - MISCon 77-71-9215LEH - MISC [id number]#1.00TIFFWyandot Memorial HospitalPatient Correspondenceon 30-45-0178Bbcaynw Correspondence [id number]#1.00TIFTrinity Health SystemFormson [id number]#1.00TIFF [facility] Memorial HospitalA1C HEMOGLOBINon 14-18-6792RyP2d (Bld) [Mass fraction]7.5 %[employer] Other HbA1c (Bld) [Mass fraction]on 22-28-9970P9Q HEMOGLOBIN [employer] Other Lab Reportson 28-07-8604Bqc Reports [id number]#1.00TIFFNoKettering Health MiamisburgOffice Visit (Cardiology)on 22-15-6189Ysokpk-up visitDiagnoses/Problems Assessed 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 [...] in adult Healthy Weight Tips; Status:Complete; Done: [id number] Patient Instructions Please bring all medicines, vitamins, [...] HERRERA, (more content not included)...NormalUH TouchworksTobacco Screening.on 79-40-5287Qxbn risk assessmentc) Not medically indicatedMP-[facility] 250 DO Work Phone: Tobacco use status CPHSb) NoMP-[facility] [place] 250 DO Work Phone: Tobacco Screening.YesMP-[facility] 250 DO Work Phone: NO CARDIAC STRESS/REST INJECTIONon 91-02-2960FKG CARDIAC STRESS/REST INJECTIONMRN: [id number] Patient Name: MYRA PICKARD STUDY: MYOCARDIAL PERFUSION STRESS TEST WITH EXERCISE CONVERTED TO LEXISCAN Performing facility: [facility], [address] [place] [address] Provider: Dolores Pickard RN, WALLPAPERER HELPER PCP: Dr. Teresa Lynch Supervising provider: Pascale Arnold MD, FACC INDICATION: Anginal equivalent CAD; HISTORY: Gender: M; Age: 57 y/o ; Height: 182.88 cm; Weight: 97.3554522 kg. High Cholesterol; CAD; Diabetes; HTN; Palpitations; Chest Pain; Quit smoking unknown years ago. COMPARISON: Previous nuclear testing completed at [facility]. ACCESSION NUMBER(S): [id number]; [id number]; [id number] ORDERING CLINICIAN: DOLORES PICKARD TECHNIQUE: ONE DAY [...] the perfusion study. 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 Medical CenterAlbumin [Mass/volume] in Serum or Plasma by Bromocresol green (BCG) dye binding methoOrdered By: Teresa Lynch on 03-89-6132Kkjkmmf BCG dye [Mass/Vol]4.1 g/dL3.5-5.7FMarion HospitalAlkaline phosphatase [Enzymatic activity/volume] in Serum or PlasmaOrdered By: Teresa Lynch on 26-91-8772DTZ [Catalytic activity/Vol]116 U/L 34-104St. [facility]S Medical CenterAspartate aminotransferase [Enzymatic activity/volume] in Serum or PlasmaOrdered By: Teresa Lynch on 09-23-0326ROM [Catalytic activity/Vol]15 U/O39-55TzqlgnubuSt. Mary'S Medical CenterBasophils Auto (Bld) [#/Vol]Ordered By: Teresa Lynch on 79-36-7904Mkfyktbxq (Bld) [#/Vol]0.1 10*3/uL0.0-0.2FMarion HospitalBasophils/100 WBC Auto (Bld) Ordered By: Teresa Lynch on 67-97-8829Fwrxxibim/100 WBC (Bld)1.1 %.[facility] Medical CenterBilirubin.total [Mass/volume] in Serum or PlasmaOrdered By: Teresa Lynch on 03-35-7492Rfixbxoky [Mass/Vol]0.4 mg/dL0.3-1.0[facility] Medical CenterCalcium [Mass/volume] in Serum or PlasmaOrdered By: Teresa Lynch on 34-26-4107Xeqwczs [Mass/Vol]8.8 mg/dL8.6-10.3FMarion HospitalCarbon dioxide, total [Moles/volume] in Serum or PlasmaOrdered By: Teresa Lynch on 80-90-6479HY0 [Moles/Vol]27.2 mmol/L21.0-31.0St. [facility] Medical CenterChloride [Moles/volume] in Serum or PlasmaOrdered By: Teresa Lynch on 56-59-6238Oreghlky [Moles/Vol]99 mmol/J50-405IjrjrjrrqSt. Mary'S Medical Center Cholesterol [Mass/volume] in Serum or PlasmaOrdered By: Teresa Lynch on 09-27-2022 Cholesterol [Mass/Vol]104 mg/lX866-420ZdsgcysjeSt. Mary'S Medical CenterComment on above:Chol less than 200 mg/dl low riskChol 201-239 mg/dl borderline riskChol 240 mg/dl and greater high riskCholesterol in LDL Calc [Mass/Vol]Ordered By: Teresa Lynch on 40-23-2157Ldboczlfbqq in LDL [Mass/Vol]TNPSt. Mary'S Medical CenterComment on above:Test not performedCholesterol in LDL [Mass/volume] in Serum or PlasmaOrdered By: Teresa Lynch on 79-71-2848Mlryplbpsko in LDL [Mass/Vol]38 mg/dL0-100St. [facility]'S Medical CenterComment on above: LDL ATP III CLASSIFICATIONLDL less than 100 mg/dL OptimalLDL 100-129 mg/dL Near or above ssnvkckUMF803-024 mg/dL Borderline highLDL 160-189 mg/dL HighLDL greater than 189 mg/dL Very highCholesterol in VLDL Calc [Mass/Vol]Ordered By: Teresa Lynch on 61-73-4786Phsbfyowcny in VLDL [Mass/Vol]99 mg/dLSt. Mary'S Medical CenterCreatinine [Mass/volume] in Serum or PlasmaOrdered By: Teresa Lynch on 31-51-2737Kttsnnndqw [Mass/Vol]1.84 mg/dL0.70-1.30St. [facility] Medical CenterEosinophils Auto (Bld) [#/Vol]Ordered By: Teresa Lynch on 09-27-2022 Eosinophils (Bld) [#/Vol]0.7 10*3/uL0.0-0.45[facility] Eosinophils/100 WBC Auto (Bld)Ordered By: Teresa Lynch on 09-27-2022 Eosinophils/100 WBC (Bld)5.9 %.[facility]S Medical CenterErythrocyte distribution width Auto (RBC) [Ratio]Ordered By: Teresa Lynch on 09-27-2022 Erythrocyte distribution width (RBC) [Ratio]16.0 %12.0-14.8St. [facility] Medical CenterGlobulin Calc (S) [Mass/Vol]Ordered By: Teresa Lynch on 09-27-2022 Globulin (S) [Mass/Vol]2.9 g/dLSt. Mary'S Medical CenterGlucose [Mass/volume] in Serum or PlasmaOrdered By: Teresa Lynch on 31-53-9803Opnvtea [Mass/Vol]225 mg/mT43-238NglcahroiSt. Mary'S Medical CenterComment on above:ADA recommended reference rangeRandom Glucose Reference Range is dependent on time and content of last meal. Glucose of more than 200 mg/dL in a nonstressed, ambulatory subject supports the diagnosisof Diabetes Mellitus.Hematocrit Auto (Bld) [Volume fraction]Ordered By: Teresa Lynch on 45-08-0682Vfkdeuihhg (Bld) [Volume fraction]41.0 %38.8-50.0St. [facility] Medical CenterHemoglobin [Mass/volume] in BloodOrdered By: Teresa Lynch on 60-24-0668Cokbitqzqw (Bld) [Mass/Vol]13.2 g/dL13.0-17.0St. [facility] Medical CenterLeukocytes [#/volume] corrected for nucleated erythrocytes in Blood by Automated coun Ordered By: Teresa Lynch on 14-78-8412VYY corrected for nucl RBC Auto (Bld) [#/Vol]12.4 10*3/uL4.1-10.5FMarion HospitalLymphocytes Auto (Bld) [#/Vol]Ordered By: Teresa Lynch on 99-47-6756Vcnntrjjhjk (Bld) [#/Vol]2.3 10*3/uL1.00-4.8St. [facility]S Medical CenterLymphocytes/100 WBC Auto (Bld) Ordered By: Teresa Lynch on 65-88-1898Griazquuevy/100 WBC (Bld)18.2 %.[facility] HospitalH Auto (RBC) [Entitic mass]Ordered By: Teresa Lynch on 57-69-8036RYK (RBC) [Entitic mass]23.9 pg27.5-35.2FMarion HospitalMCHC Auto (RBC) [Mass/Vol]Ordered By: Teresa Lynch on 54-90-2028YGFR (RBC) [Mass/Vol]32.2 g/dL32.5-35.6FMarion HospitalMCV Auto (RBC) [Entitic vol]Ordered By: Teresa Lynch on 48-57-5799MRL (RBC) [Entitic vol]74.3 fL 83.5-101St. [facility] Medical CenterMonocytes Auto (Bld) [#/Vol]Ordered By: Teresa Lynch on 17-65-0041Jjnxciuwr (Bld) [#/Vol]1.0 10*3/uL0.0-0.8St. [facility] Medical CenterMonocytes/100 WBC Auto (Bld)Ordered By: Teresa Lynch on 24-74-6894Sahatjfde/100 WBC (Bld)7.9 %.[facility] Neutrophils Auto (Bld) [#/Vol]Ordered By: Teresa Lynch on 41-71-8586Pklzovzkhnw (Bld) [#/Vol]8.3 10*3/uL1.8-7.7FMarion HospitalNeutrophils/100 WBC Auto (Bld)Ordered By: Teresa Lynch on 45-34-8065Jamxqthgyet/100 WBC (Bld)66.9 %.[facility] Medical CenterNo Panel InformationOrdered By: Teresa Lynch on 44-19-9594Hfxxbtwwn GFR (CKD-EPI)42.232 mL/MinSt. Mary'S Medical Center Pharmacy Creatinine Clearance (ChemN/[facility] CenterNucleated erythrocytes [Presence] in Blood by Automated countOrdered By: Teresa Lynch on 94-68-7540Veqbsddzn RBC Auto Ql (Bld)0.1 /100{WBC}0-0.5FMarion HospitalPlatelet mean volume Auto (Bld) [Entitic vol]Ordered By: Teresa Lynch on 92-70-6259Eclnjssq mean volume (Bld) [Entitic vol]9.1 fL6.6-10.1 [facility] Medical CenterPlatelets Auto (Bld) [#/Vol]Ordered By: Teresa Lynch on 50-52-9769Tpfwiodqm (Bld) [#/Vol]209 10*3/uV022-592OoojwpzgrSt. Mary'S Medical CenterPotassium [Moles/volume] in Serum or PlasmaOrdered By: Teresa Lynch on 04-74-4289Hjurdhyvl [Moles/Vol]4.3 mmol/L3.5-5.1FMarion HospitalProtein [Mass/volume] in Serum or PlasmaOrdered By: Teresa Lynch on 42-22-9151Zuokbal [Mass/Vol]7.0 g/dL6.4-8.9St. [facility] Medical CenterRBC Auto (Bld) [#/Vol]Ordered By: Teresa Lynch on 31-87-9715WTB (Bld) [#/Vol]5.52 10*6/uL3.90-5.60[facility] Centererum or plasma albumin/globulin mass ratioOrdered By: Teresa Lynch on 57-70-8642Icqbslq/Globulin [Mass ratio]1.4 {ratio}[facility] Centererum or plasma anion gap determinationOrdered By: Teresa Lynch on 83-64-2832Sakbi gap [Moles/Vol]14.1 mmol/L6.0-15.0[facility] Centererum or plasma high density lipoprotein (HDL) cholesterol measurementOrdered By: Teresa Lynch on 09-27-2022 Cholesterol in HDL [Mass/Vol]21 mg/lP35-97LxmjaubkhSt. Mary'S Medical Center Comment on above:HDL CHOL ATP-III CLASSIFICATION Cardiovascular RiskHDL > or equal to 60 mg/dL LOWHDL < 40 mg/dL HIGHSerum or plasma total cholesterol/high density lipoprotein (HDL) cholesterol mass ratOrdered By: Teresa Lynch on 98-73-3658Ugjujtrqcnr.total/Cholesterol in HDL [Mass ratio]5.0 {ratio}<5.0 [facility] Centerodium [Moles/volume] in Serum or PlasmaOrdered By: Teresa Lynch on 59-57-8345Irhzxj [Moles/Vol]136 mmol/H451-630WlcljzwofSt. Mary'S Medical CenterThyrotropin [Units/volume] in Serum or PlasmaOrdered By: Teresa Lycnh on 46-72-6170EPE Qn3.62 m[IU]/L0.45-5.33St. [facility]S Medical CenterTriglyceride [Mass/volume] in Serum or PlasmaOrdered By: Teresa Lynch on 89-36-0660Xoszhrihgeoq [Mass/Vol]497 mg/dL0-149[facility] Comment on above:If the triglyceride result is greater than 400, LDLC and related calculations cannot be calculated and resulted.TRIG ATP III CLASSIFICATIONTRIG less than 150 mg/dL NormalTRIG 150-199 mg/dL Borderline highTRIG 200-500 mg/dL High TRIG greater than 500 mg/dL Very highStandard traceable to the Center for Disease Conrtrol and Prevention (CDC) test method. Urate [Mass/volume] in Serum or PlasmaOrdered By: Teresa Lynch on 32-62-1284Yimww [Mass/Vol]6.2 mg/dL2.4-7.6FMarion HospitalUrea nitrogen [Mass/volume] in Serum or PlasmaOrdered By: Teresa Lynch on 07-94-8725Frar nitrogen [Mass/Vol]15 mg/dL7-25St. [facility]S Medical CenterWBC Auto (Bld) [#/Vol]Ordered By: Teresa Lynch on 38-13-2292ORI (Bld) [#/Vol]12.4 10*3/uL4.1-10.5 [facility] Medical CenterA1C HEMOGLOBINon 11-47-6706EsF9d (Bld) [Mass fraction]%[employer] [facility] [employer]ZZ[employer] Other HbA1c (Bld) [Mass fraction]on 47-45-1869Y7X HEMOGLOBIN [facility] [employer] Other Tobacco Screening.on 15-59-0611Ebtkz depression screening assessmentFederal Correction Institution Hospital 250 DO Work Phone: Tobacco use status CPHSb) NoM-[facility] [place] 250 DO Work Phone: A1C HEMOGLOBINon 31-28-8467XjV5x (Bld) [Mass fraction] 11.8 %[facility] [employer] Other HbA1c (Bld) [Mass fraction]on 88-95-2519D0I HEMOGLOBIN [facility] [employer] Other Vital Signs Date TimeVital SignValuePerforming DudpsauypZzjkiuwy07-51-3245 10:51-0400Body ucjovb929.9 cmMokaren Montes MD Work Phone: 1(777)[facility] [employer] Cryzab50-73-8601 10:51-0400Body mass index (BMI) [Ratio]28.07 kg/o9MqpowpxMike Montes MD Work Phone: 1(328)[facility]09-25-2025 10:51-0400Body jwcnux21.89 kgMokaren Montes MD Work Phone: 1(643)[facility]09-25-2025 10:51-0400Diastolic blood mm[Hg]Mike Montes MD Work Phone: 1(776)[facility]09-25-2025 10:51-0400Heart rate 75 /minMokaren Montes MD Work Phone: 1(231)[facility]09-25-2025 10:51-0354IgB9% (BldA) [Mass fraction]99 %Mike Montes MD Work Phone: 1(956)[facility]09-25-2025 10:51-0400Systolic blood mktgkdli702 mm[Hg]Mike Montes MD Work Phone: 1(361)[facility]09-03-2025 09:05-0400Diastolic blood exprhwcr11 mm[Hg]Fabiana [address] [place], [place] 5221609-03-2025 09:05-0400Heart rate71 /minEly [address] [place], [place] 5221609-03-2025 09:05-0400Systolic blood vwipbowp120 mm[Hg]Fabiana [address] [place], [place] 5221606-03-2025 16:13-0400Body exxhlj288.88 cmTeresa Fraustos DO Work Phone: [facility]06-03-2025 16:13-0400 Body mass index (BMI) [Ratio]28.2 kg/j1NgrbyTeresa Fraustos DO Work Phone: [facility]06-03-2025 16:13-0400 Body .34 kgBrygorge Fraustos DO Work Phone: [facility]06-03-2025 16:13-0400 Diastolic blood nughjctx29 mm[Hg]Teresa Fraustos DO Work Phone: [facility]06-03-2025 16:13-0400 Heart rate68 /minPhillipan Jetts DO Work Phone: [address] [place], [place] [address]06-03-2025 16:13-0400 Respiratory rate18 /minPhillipan Jetts DO Work Phone: [facility]06-03-2025 16:13-0400 SaO2% (BldA) [Mass fraction]96 %Teresa Fraustos DO Work Phone: [facility]06-03-2025 16:13-0400 Systolic blood kqzgdorl234 mm[Hg]Teresagorge Fraustos DO Work Phone: [facility]06-03-2025 13:50-0400 Body efsnip84.16 kgTeresa Fraustos DO Work Phone: [facility]06-03-2025 13:50-0400 Diastolic blood psynqjwj90 mm[Hg]Teresa Jetts DO Work Phone: [facility]06-03-2025 13:50-0400 Heart rate70 /minPhillipan Kuns DO Work Phone: [facility]06-03-2025 13:50-0400 Respiratory rate18 /minBryan Kuns DO Work Phone: [facility]06-03-2025 13:50-0400 SaO2% (BldA) [Mass fraction]98 %Teresa Fraustos DO Work Phone: [facility]06-03-2025 13:50-0400 Systolic blood whasqkvn221 mm[Hg]Teresagorge Lynch DO Work Phone: [facility]05-09-2025 13:40-0400 Heart rate62 /minTeresa Lynch DO Work Phone: [facility]05-09-2025 13:40-0400 Respiratory rate20 /minTeresa Fraustos DO Work Phone: 1(065)[address]05-09-2025 08:00-0400 Body bwnukibdhag39.3 [degF]Teresa Lynch DO Work Phone: 1(832)[address] [place], [place] 6134805-09-2025 08:00-0400 Diastolic blood lezildcp17 mm[Hg]Teresa Rory DO Work Phone: 1(765)3-[address] [place], [place] 6134805-09-2025 08:00-0400 SaO2% (BldA) [Mass fraction]96 %Teresa Lynch DO Work Phone: [phone]05-09-2025 08:00-0400 Systolic blood hqtxyqnz526 mm[Hg]Teresa Jettcamille DO Work Phone: 1(225)[address] [place], [place] 6134805-09-2025 06:00-0400 Body .6 kgTeresa Lynch DO Work Phone: 1(179)667-[address] [place], [place] 6134805-08-2025 20:48-0400 Body elfews107.88 cmTeresa Jetts DO Work Phone: 1(493)0-[address] [place], [place] 6134805-08-2025 20:30-0400 Diastolic blood tzijqvxm23 mm[Hg]Teresa Fraustos DO Work Phone: 1(046)836-[address] [place], [place] 6134805-08-2025 20:30-0400 Heart rate78 /minTeresa Lynch DO Work Phone: 1(694)[address]05-08-2025 20:30-0400 Respiratory rate18 /minTeresa Fraustos DO Work Phone: 1(844)[address] [place], [place] 2452305-08-2025 20:30-0400 SaO2% (BldA) [Mass fraction]97 %Teresa Fraustos DO Work Phone: 1(898)[address] [place], [place] 2452305-08-2025 20:30-0400 Systolic blood zligyaxg838 mm[Hg]Teresa Fraustos DO Work Phone: 1(580)[address] [place], [place] 2452305-08-2025 14:36-0400 Body xacqeb850.88 cmTeresa Fraustos DO Work Phone: 1(661)[address] [place], [place] 2452305-08-2025 14:36-0400 Body dbexwvgmwbi28.6 [degF]Teresa Fraustos DO Work Phone: 1(781)[address] [place], [place] 2452305-08-2025 14:36-0400 Body gskgyh28.45 kgTeresa Fraustos DO Work Phone: 1(193)[address] [place], [place] 2452303-28-2025 09:28-0400 Body bbpyaw330.88 cmTeresa Fraustos DO Work Phone: 1(064)[address] [place], [place] 2452303-28-2025 09:28-0400 Body mass index (BMI) [Ratio]27.1 kg/m2PbneoTeresa Fraustos DO Work Phone: 1(984)8-[address] [place], [place] 6134803-28-2025 09:28-0400 Body .71 kgTeresa Fraustos DO Work Phone: 1(160)[address] [place], [place] 2452303-28-2025 09:28-0400 Diastolic blood idpdivmp32 mm[Hg]Teresa Fraustos DO Work Phone: 1(424)[address] [place], [place] 2452303-28-2025 09:28-0400 Heart rate82 /minTeresa Fraustos DO Work Phone: 1(804)[address] [place], [place] 2452303-28-2025 09:28-0400 Respiratory rate16 /minTeresa Fraustos DO Work Phone: 1(068)3-[address] [place], [place] 6134803-28-2025 09:28-0400 SaO2% (BldA) [Mass fraction]99 %Teresa Fraustos DO Work Phone: 1(388)2-[address] [place], [place] 6134803-28-2025 09:28-0400 Systolic blood btevghwz400 mm[Hg]Teresa Fraustos DO Work Phone: 1(939)[address]03-11-2025 15:30-0400 Heart rate66 /minTeresa Fraustos DO Work Phone: 1(148)[address]03-11-2025 15:30-0400 Respiratory rate20 /minTeresa Fraustos DO Work Phone: 1(301)[address]03-11-2025 15:14-0400 Diastolic blood hjbfirbe27 mm[Hg]Teresa Fraustos DO Work Phone: 1(480)[address]03-11-2025 15:14-0400 SaO2% (BldA) [Mass fraction]99 %Teresa Fraustos DO Work Phone: 1(798)[address]03-11-2025 15:14-0400 Systolic blood enwwnjja450 mm[Hg]Teresa Fraustos DO Work Phone: 1(395)[address]03-11-2025 08:21-0400 Body pzqmpcpnezj28.6 [degF]Teresa Fraustos DO Work Phone: 1(350)[address]03-11-2025 06:48-0400 Body .5 kgTeresa Fraustos DO Work Phone: 1(504)[address]03-09-2025 14:57-0400 Body vxymmc194.88 cmPhillipan Jetts DO Work Phone: 1(394)[address]03-09-2025 06:29-0400 Body bhbxto580.88 cmPhillipan Kuns DO Work Phone: [facility]03-09-2025 06:29-0400 Body srqokleirbd93 [degF]Teresa Lynch DO Work Phone: [facility]03-09-2025 06:29-0400 Body .3 kgTeresa Lynch DO Work Phone: [facility]03-09-2025 06:29-0400 Diastolic blood mcxrzfri39 mm[Hg]Teresa Lynch DO Work Phone: [facility]03-09-2025 06:29-0400 Heart rate92 /minTeresa Lynch DO Work Phone: [facility]03-09-2025 06:29-0400 Respiratory rate16 /minTeresa Lynch DO Work Phone: [facility]03-09-2025 06:29-0400 SaO2% (BldA) [Mass fraction]99 %Teresa Lynch DO Work Phone: [facility]03-09-2025 06:29-0400 Systolic blood kpcegkmd796 mm[Hg]Teresa Lynch DO Work Phone: [facility]02-28-2025 09:02-0500 Blood Pressure LocationJENNIFER RASHI [facility]02-28-2025 09:02-0500Body fdcnfoqctnp86.98 [degF]MARYBEL RASHI [facility]02-28-2025 09:02-0500Diastolic blood owctagul38 mm[Hg]MARYBEL RASHI [facility]02-28-2025 09:02-0500Heart rate80 /minJENNDAMION RASHI [facility]02-28-2025 09:02-0500Respiratory rate18 /minMARYBEL VANG [facility]02-28-2025 09:02-0500Systolic blood xbmuakkf976 mm[Hg]MARYBEL VANG [facility]12-23-2024 14:47-0500Blood Pressure LocationPatrick Unfold [facility]12-23-2024 14:47-0500Body qntbpsirjir73.6 [degF]Yeyo ROWE [facility]12-23-2024 14:47-0500Diastolic blood mm[Hg]Yeyo ROWE [facility]12-23-2024 14:47-0500Heart rate70 /minPatrick ROWE [facility]12-23-2024 14:47-0500Respiratory rate16 /minPatrick ROWE [facility]12-23-2024 14:47-0500Systolic blood tfxgttgi681 mm[Hg]Yeyo ROWE [facility]12-03-2024 16:35-0500Body iqmwyfaysfi24 [degF]Teresa Lynch DO Work Phone: [facility]12-03-2024 16:35-0500 Diastolic blood pqrmzfar83 mm[Hg]Teresa Lynch DO Work Phone: [facility]12-03-2024 16:35-0500 Heart rate79 /minTeresa Lynch DO Work Phone: [facility]12-03-2024 16:35-0500 Respiratory rate16 /minTeresa Lynch DO Work Phone: [facility]12-03-2024 16:35-0500 SaO2% (BldA) [Mass fraction]99 %Teresa Lynch DO Work Phone: [facility]12-03-2024 16:35-0500 Systolic blood xzmsyqtr33 mm[Hg]Teresa Lynch DO Work Phone: [facility]11-20-2024 11:04-0500 Diastolic blood egdfecst27 mm[Hg]Kait Dan MD Work Phone: 1(026)676-[address] [place], [place] 7662211-20-2024 11:04-0500 Heart rate86 /Ab Dan MD Work Phone: 1(025)111-[address] [place], [place] 7662211-20-2024 11:04-0500 SaO2% (BldA) [Mass fraction]99 %Kait Dan MD Work Phone: [address] [place], [place] 7953911-20-2024 11:04-0500 Systolic blood limsjtfp410 mm[Hg]Kait Dan MD Work Phone: [address] [place], [place] 7953911-19-2024 14:30-0500 Diastolic blood uzogjodk09 mm[Hg]Kait Dan MD Work Phone: [facility]11-19-2024 14:30-0500 Heart rate74 /Ab Dan MD Work Phone: [facility]11-19-2024 14:30-0500 Respiratory rate18 /Ab Dan MD Work Phone: [facility]11-19-2024 14:30-0500 SaO2% (BldA) [Mass fraction]98 %Kait Dan MD Work Phone: [facility]11-19-2024 14:30-0500 Systolic blood llxlyxvh872 mm[Hg]Kait Dan MD Work Phone: 1(940)[address]11-19-2024 12:52-0500 Body nsfuyr219.88 cmAtae Dan MD Work Phone: 1(731)[address] [place], [place] 5007211-19-2024 12:52-0500 Body dolnmh86.45 kgKait Dan MD Work Phone: 1(489)[address] [place], [place] 5007210-31-2024 16:48-0400 Body ucqydg85.45 kgKait Dan MD Work Phone: 1(911)[address] [place], [place] 5007210-31-2024 14:00-0400 Diastolic blood cpxaxzob32 mm[Hg]Kait Dan MD Work Phone: 1(536)[address] [place], [place] 5007210-31-2024 14:00-0400 Heart rate86 /minKait Dan MD Work Phone: 1(051)[address] [place], [place] 5007210-31-2024 14:00-0400 Respiratory rate18 /Ab Dan MD Work Phone: 1(453)[address] [place], [place] 5007210-31-2024 14:00-0400 SaO2% (BldA) [Mass fraction]97 %Kait Dan MD Work Phone: 1(109)[address] [place], [place] 5007210-31-2024 14:00-0400 Systolic blood uokfawcb174 mm[Hg]Kait Dan MD Work Phone: 1(814)[address] [place], [place] 5007210-17-2024 10:30-0400 Diastolic blood xkfpztle55 mm[Hg]MD Kait Dan Work Phone: 1(536)171-[address] [place], [place] 7662210-17-2024 10:30-0400 Heart rate95 /minMD Kait Dan Work Phone: 1(274)871-[address] [place], [place] 7662210-17-2024 10:30-0400 Systolic blood mwxxyaft932 mm[Hg]MD Kait Dan Work Phone: 1(101)[address] [place], [place] 5878710-15-2024 17:26-0400 Body ttqlzdbhkzo58.01 [degF]Guero Tam DO Work Phone: [facility] [id number] 17:26-0400Diastolic blood mm[Hg]uGero Mclong DO Work Phone: [facility] [employer] [id number] 17:26-0400Heart rate 85 /minDennis Jesusitalong DO Work Phone: [facility] [employer] [id number] 17:26-0400 Respiratory rate19 /minDennis Jesusitalong DO Work Phone: [facility] [id number] 17:26-3206OcE7% (BldA) [Mass fraction]96 %Guero Harrisng DO Work Phone: [facility] [employer] [id number] 17:26-0400Systolic blood vouimvjo943 mm[Hg]Guero Harrisng DO Work Phone: [facility] [employer] [id number] 18:27-0400Body mass index (BMI) [Ratio]26.75 kg/f1Ljeejt Furlong DO Work Phone: [facility] [employer] [id number] 18:27-0400Body egmlahwhuvp82.01 [degF]Guero Harrisng DO Work Phone: [facility] [employer] [id number] 18:27-0400Body xzproq21.45 kgDenjunito Harrisng DO Work Phone: [facility] Hirxrr13-74-6201 18:27-0400Diastolic blood oghekywa07 mm[Hg]Guero Harrisng DO Work Phone: [facility] Ymdfid06-58-5421 18:27-0400Heart rate 84 /minDadeolais Jesusitalong DO Work Phone: [facility] [employer] Ysgeez15-79-0751 18:27-0400 Respiratory rate18 /minDennis Jesusitalong DO Work Phone: [facility]10-11-2024 18:27-5701ThE1% (BldA) [Mass fraction]95 %Guero Tam DO Work Phone: [facility]10-11-2024 18:27-0400Systolic blood gnwfxoug668 mm[Hg]Guero Tam DO Work Phone: [facility]10-09-2024 11:08-0400Body hwizuowdswm29.8 [degF]MD Kait Dan Work Phone: [facility]10-09-2024 11:08-0400 Diastolic blood jylapykz53 mm[Hg]MD Kait Dan Work Phone: 1(926)914-[address] [place], [place] 7662210-09-2024 11:08-0400 Heart rate77 /minMD Kait Dan Work Phone: 1(128)772-[address] [place], [place] 7662210-09-2024 11:08-0400 Respiratory rate16 /minMD Kait Dan Work Phone: 1(122)364-[address] [place], [place] 7662210-09-2024 11:08-0400 SaO2% (BldA) [Mass fraction]99 %MD Kait Dan Work Phone: 1([phone])075-97[facility]10-09-2024 11:08-0400 Systolic blood exkubpnz469 mm[Hg]MD Kait Dan Work Phone: [facility]10-09-2024 06:00-0400 Body yoxhtn24.2 kgMD Kait Dan Work Phone: 1(936)844-[address] [place], [place] 7662210-05-2024 12:29-0400 Body fenhwb506.34 cmMD Kait Dan Work Phone: 1([phone]10-04-2024 21:00-0400 Diastolic blood mm[Hg]MD Kait Dan Work Phone: 1(619)615-02[facility]10-04-2024 21:00-0400 Heart rate93 /minMD Kait Dan Work Phone: 1(020)281-[address] [place], [place] 7662210-04-2024 21:00-0400 SaO2% (BldA) [Mass fraction]97 %MD Kait Dan Work Phone: 1(554)272-[address] [place], [place] 7662210-04-2024 21:00-0400 Systolic blood kpwnomzj952 mm[Hg]MD Kait Dan Work Phone: 1(492)[address]10-04-2024 20:30-0400 Respiratory rate16 /minMD Kait Dan Work Phone: 1(752)[address]10-04-2024 20:07-0400 Body mqaahcdgyoh81.4 [degF]MD Kait Dan Work Phone: 1(437)[address]10-04-2024 14:10-0400 Body .34 cmMD Kait Dan Work Phone: 1(703)[address] [place], [place] 5878710-04-2024 14:10-0400 Body ymrwrv72.3 kgMD Kait Dan Work Phone: 1(838)[address]10-02-2024 15:51-0400 Body dgyaqelmsft24.1 [degF]MD Kait Dan Work Phone: 1(442)[address]10-02-2024 15:51-0400 Diastolic blood khicqkgh55 mm[Hg]MD Kait Dan Work Phone: 1(087)[address]10-02-2024 15:51-0400 Heart rate78 /minMD Kait Dan Work Phone: 1(737)100-[address] [place], [place] 7662210-02-2024 15:51-0400 Respiratory rate16 /minMD Kait Dan Work Phone: 1(542)430-[address] [place], [place] 7662210-02-2024 15:51-0400 SaO2% (BldA) [Mass fraction]97 %MD Kait Dan Work Phone: 1(710)158-[address] [place], [place] 7662210-02-2024 15:51-0400 Systolic blood ofeuoqqu029 mm[Hg]MD Kait Dan Work Phone: [facility]10-02-2024 05:29-0400 Body ilcypf69.9 kgMD Kait Dan Work Phone: 1(036)586-[address] [place], [place] 7662210-01-2024 14:26-0400 Body xbinro518.88 cmMD Kait Dan Work Phone: 1(200)[address]09-29-2024 17:00-0400 Diastolic blood kyklhyfu29 mm[Hg]MD Kait Dan Work Phone: 1(933)771-[address] [place], [place] 7662209-29-2024 17:00-0400 Heart rate86 /minMD Kait Dan Work Phone: 1(391)[address]09-29-2024 17:00-0400 Respiratory rate20 /minMD Kait Dan Work Phone: 1(373)[address]09-29-2024 17:00-0400 SaO2% (BldA) [Mass fraction]100 %MD Kait Dan Work Phone: 1(628)653-[address] [place], [place] 7662209-29-2024 17:00-0400 Systolic blood dhdvyhhz744 mm[Hg]MD Kait Dan Work Phone: 1(656)446-[address] [place], [place] 7662209-29-2024 13:45-0400 Body mdpyke428.88 cmMD Kait Dan Work Phone: 1(481)846-[address] [place], [place] 7662209-29-2024 13:45-0400 Body ihlfeytjpkp30.9 [degF]MD Kait Dan Work Phone: 1(724)778-[address] [place], [place] 7662209-29-2024 13:45-0400 Body xlnqeh51.5 kgMD Kait Dan Work Phone: 1(702)185-[address] [place], [place] 7662209-26-2024 09:27-0400 Body .9 cmMike Montes MD Work Phone: 1(087)[facility] 09:27-0400Body mass index (BMI) [Ratio]26.85 kg/v6Kplyuzlkaren Montes MD Work Phone: 1(807)[facility] [employer] Cbcyrr38-95-2817 09:27-0400Body zvagbijflxl76.01 [degF]Mike Montes MD Work Phone: 1(027)[facility] [employer] Stslcf34-68-6146 09:27-0400Body xoxyzl02.81 kgMike Montes MD Work Phone: 1(849)[facility] [employer] Tyclxm83-35-0186 09:27-0400Diastolic blood xmyxwlvi65 mm[Hg]Mike Montes MD Work Phone: 1(749)[facility] [employer] Lhsuay16-11-4598 09:27-0400Heart rate 77 /minMike Montes MD Work Phone: 1(467)[facility] [employer] Kgrzwn28-83-8443 09:27-0400 Respiratory rate20 /minMike Montes MD Work Phone: 1(348)[facility] [employer] Milmdv16-67-3230 09:27-1588VuB0% (BldA) [Mass fraction]99 %Mike Montes MD Work Phone: 1(410)[facility] [employer] Doqzsk74-54-9074 09:27-0400Systolic blood xlyrnmfc25 mm[Hg]Mike Montes MD Work Phone: 1(969)[facility] [employer] Hbeehp40-20-7862 14:52-0400Body mass index (BMI) [Ratio]26.65 kg/c5Orqyjz Furlong DO Work Phone: [facility] [employer] Upnceo86-48-6176 14:52-0400Body metmxnapewr96.01 [degF]Guero Furlong DO Work Phone: [facility] [employer] Epeess54-91-1991 14:52-0400Body lvjaxx84.13 kgDennis Furlong DO Work Phone: [facility] [employer] Atrclb47-54-7655 14:52-0400Diastolic blood pqfujzms28 mm[Hg]Guero Furlong DO Work Phone: [facility] [employer] Nvvfir56-56-3860 14:52-0400Heart rate 95 /minDennis Furlong DO Work Phone: [facility]09-25-2024 14:52-0400 Respiratory rate18 /minDennis Furlong DO Work Phone: [facility]09-25-2024 14:52-6266ByP6% (BldA) [Mass fraction]98 %Guero Furlong DO Work Phone: [facility]09-25-2024 14:52-0400Systolic blood yrqlfbdx307 mm[Hg]Guero Mclong DO Work Phone: [facility]09-18-2024 17:40-0400Hourly RoundingMohamed Simon [address]09-18-2024 17:40-0400 Promise to ReturnMohamed Simon [address]09-18-2024 16:32-0400 Hourly RoundingMohamed Simon [address]09-18-2024 16:32-0400 Promise to ReturnMohamed Simon [address]09-18-2024 15:00-0400 Hourly RoundingMohamed Simon [address]09-18-2024 15:00-0400 Promise to ReturnMohamed Simon [address]09-18-2024 10:51-0400Heart rate70 /minMohamed Simon [address] [place], [place] 8463009-18-2024 10:51-4960UrB8% (BldA) [Mass fraction]100 %Mike Halean [address]09-18-2024 10:47-0400Body tzldkilnwgv91.06 [degF]Mike Simon [address] [place], [place] 5595009-18-2024 10:46-0400 Diastolic blood crivrkto01 mm[Hg]Mike Halean [address] [place], [place] 5595009-18-2024 10:46-0400Mean blood phhzaydf06 mm[Hg]Mike Simon [address] [place], [place] 5595009-18-2024 10:46-0400 Systolic blood mm[Hg]Mike Simon [address] [place], [place] 5595009-18-2024 10:15-0400Blood Pressure LocationMohamed Simon [address] [place], [place] 5595009-18-2024 10:15-0400 Diastolic blood untrrzyc93 mm[Hg]Mike Halean [address] [place], [place] 5595009-18-2024 10:15-0400Heart rate76 /minMohamed Simon [address] [place], [place] 5595009-18-2024 10:15-0400Mean blood urhbepfp51 mm[Hg][facility] Montes [address] [place], [place] 5595009-18-2024 10:15-3644TjQ7% (BldA) [Mass fraction]100 %[facility] Halean [address] [place], [place] 5595009-18-2024 10:15-0400 Systolic blood jeofqeab771 mm[Hg]Mike Simon [address] [place], [place] 5595009-18-2024 08:27-0400 Diastolic blood ytkbbgas92 mm[Hg]Mike Simon [address] [place], [place] 5595009-18-2024 08:27-0400 Systolic blood pmvaeftu659 mm[Hg]Mike Simon [address] [place], [place] 5595009-18-2024 08:25-0400Heart rate50 /minMohamed Simon [address] [place], [place] 5595009-18-2024 07:36-0400Heart rate68 /minMohamed Simon [address] [place], [place] 5595009-18-2024 07:36-0282PdA1% (BldA) [Mass fraction]100 %Mike Halean [address] [place], [place] 5595009-18-2024 07:36-0400Mean blood iumiazbh42 mm[Hg]Mike Halean [address] [place], [place] 5595009-18-2024 07:36-0400Body pjitdtnfqtk16.52 [degF]Mike Simon [address] [place], [place] 5595009-18-2024 00:00-0400Blood Pressure LocationMokaren Montes [address] [place], [place] 5595009-18-2024 00:00-0400Body ekorttjrpjb21.52 [degF]Mike Halean [address] [place], [place] 5595009-18-2024 00:00-0400Mean blood hposkekn08 mm[Hg]Mike Halean [address] [place], [place] 5595009-17-2024 21:16-0400Heart rate83 /minMohamed Simon [address] [place], [place] 5595009-17-2024 19:29-0400Mean blood thxluldw48 mm[Hg]Merlynnegro Simon [address] [place], [place] 5595009-17-2024 19:29-0400Body vegcpwocxzh90.06 [degF]Merlynnegro Simon [address] [place], [place] 5595009-17-2024 15:37-0400gluc 104 mg/dLMokaren Montes [address] [place], [place] 5595009-17-2024 11:00-0400Body szhyemnbrrj04.42 [degF]Mike Montes [address] [place], [place] 5595009-17-2024 11:00-0400gluc 165 mg/dLMohamed Simon [address] [place], [place] 5595009-17-2024 11:00-0400Mean blood kuhmecpf19 mm[Hg]Mohamed Simon [address] [place], [place] 5595009-17-2024 09:36-0400Heart rate96 /minMohamed Simon [address] [place], [place] 5595009-17-2024 09:00-0400gluc 250 mg/dLMohamed Simon [address] [place], [place] 5595009-17-2024 09:00-0400 Respiratory rate16 /minMohamed Simon [address] [place], [place] 5595009-17-2024 05:00-0400 Respiratory rate18 /minMohamed Simon [address] [place], [place] 5595009-16-2024 23:00-0400 Respiratory rate18 /minMohamed Simon [address] [place], [place] 5595009-12-2024 05:17-0400Heart rate83 /minMohamed Simon [address] [place], [place] 5595009-12-2024 00:28-0400Heart rate83 /minMohamed Simon [address] [place], [place] 5595009-11-2024 06:15-0400Heart rate89 /minMohamed Simon [address] [place], [place] 5595009-09-2024 16:40-0400 Respiratory rate17 /minMohamed Simon [address] [place], [place] 5595009-09-2024 16:15-0400Body kbpmcpxwgob08.7 [degF]Mohamed Simon [address] [place], [place] 5595009-09-2024 16:15-0400 Respiratory rate19 /minMohamed Simon [facility]09-09-2024 16:00-0400 Respiratory rate18 /minMike Montes [facility]09-09-2024 14:46-0400Body iarsrzjjxia46.06 [degF]Mike Montes [facility]08-15-2024 08:56-0400Body shkzbu941.9 cmMike Montes MD Work Phone: 1(097)[facility]08-15-2024 08:56-0400Body mass index (BMI) [Ratio]27.8 kg/u7HfsbpobMike Montes MD Work Phone: 1(409)[facility]08-15-2024 08:56-0400Body dutrki58.99 kgMokaren Montes MD Work Phone: 1(790)[facility]08-15-2024 08:56-0400Diastolic blood qqohjqyc89 mm[Hg]Mike Montes MD Work Phone: 1(220)[facility]08-15-2024 08:56-0400Heart rate 122 /minMike Montes MD Work Phone: 1(726)[facility]08-15-2024 08:56-3229EuQ0% (BldA) [Mass fraction]100 %Mike Montes MD Work Phone: 1(851)[facility]08-15-2024 08:56-0400Systolic blood ljtegfix414 mm[Hg]Mike Montes MD Work Phone: 1(609)[facility]08-14-2024 12:34-0400Body .[address] [place], [place] 3030708-14-2024 12:34-0400Body mass index (BMI) [Ratio]28.62 kg/m2Ely [address] [place] [address] 01-17-2024 12:34-0400Body teogzz55.[address] [place] [address] 01-17-2024 12:34-0400Diastolic blood ndnyvkkm19 mm[Hg]Fabiana 2[facility]08-14-2024 12:34-0400Systolic blood orkoliht789 mm[Hg]Java 2 [facility]06-27-2024 23:10-0400Body mass index (BMI) [Ratio]27.86 kg/z9Hupfqf Furlong DO Work Phone: [facility] [employer] Vcwyhe11-99-0296 23:10-0400Body dhekhucnxyz20.3 [degF]Guero Mclong DO Work Phone: [facility] [employer] Mhzxty07-61-1433 23:10-0400Body yxlsih60.17 kgDenjunito Mclong DO Work Phone: [facility] [employer] Yzdvzc49-92-9271 23:10-0400Diastolic blood yhsuqqsy79 mm[Hg]Guero Mclong DO Work Phone: [facility] [employer] Fftmlz66-64-2391 23:10-0400Heart rate 70 /Milena Mclong DO Work Phone: [facility] [employer] Sbnasr50-17-9514 23:10-0400 Respiratory rate18 /minDadeolais Jesusitalong DO Work Phone: [facility] [employer] Ajeuaj38-12-5389 23:10-2692ElD8% (BldA) [Mass fraction]98 %Guero Mclong DO Work Phone: [facility] [employer] Acrpqm39-47-5149 23:10-0400Systolic blood pnxoyuby429 mm[Hg]Guero Mclong DO Work Phone: [facility] [employer] Qkawpy84-02-8521 08:49-0400Body rjrqfe540.9 cmMike Montes MD Work Phone: 1(872)[facility] [employer] Xttjgi20-29-0489 08:49-0400Body mass index (BMI) [Ratio]28.21 kg/m4DiogezzMike Montes MD Work Phone: 1(538)[facility] [employer] Bihqqc55-49-1807 08:49-0400Body ellphh15.35 kgMokaren Montes MD Work Phone: 1(203)[facility] [employer] Naqwzw96-35-2575 08:49-0400Diastolic blood aaszbtkv80 mm[Hg]Mike Montes MD Work Phone: 1(335)[facility] [employer] Mlrygc61-74-5904 08:49-0400Heart rate 94 /minMike Montes MD Work Phone: 1(231)[facility] [employer] Jyqykt01-31-1467 08:49-3728ZaD6% (BldA) [Mass fraction]99 %Mike Montes MD Work Phone: 1(012)[facility] [employer] Ekwkbt14-30-2047 08:49-0400Systolic blood znfyvcfs491 mm[Hg]Mike Montes MD Work Phone: 1(030)[facility] [employer] Jehmrq40-60-2689 18:59-0400Body mass index (BMI) [Ratio]27.85 kg/x4Uryiym Furlong DO Work Phone: [facility] [employer] Rvpowz64-74-5268 18:59-0400Body ejnelvbntva29.4 [degF]Guero Mclong DO Work Phone: [facility] Pebxet78-30-4013 18:59-0400Body wvzyvg54.17 kgDenjunito Mclong DO Work Phone: [facility] [employer] Dijeyt85-48-2279 18:59-0400Diastolic blood vmdcsaoi38 mm[Hg]Guero Furlong DO Work Phone: [facility] [employer] Pjulkn58-26-8298 18:59-0400Heart rate 68 /minDennis Jesusitalong DO Work Phone: [facility] [employer] Rkegze07-72-6028 18:59-0400Systolic blood lasvswkl047 mm[Hg]Guero Jesusitalong DO Work Phone: [facility] [employer] Rmbxjw56-16-5386 15:50-0400Body xzfvseguofv53.4 [degF]Guero Furlong DO Work Phone: [facility]-4989 15:50-0400Diastolic blood mm[Hg]Guero Tam DO Work Phone: [facility] [employer] Qalwzr46-71-2406 15:50-0400Heart rate 77 /Milena Harrisng DO Work Phone: [facility]06-04-2024 15:50-0400Systolic blood mtsauzfg865 mm[Hg]Guero Harrisng DO Work Phone: [facility]05-31-2024 14:11-0400Body mass index (BMI) [Ratio]28.02 kg/t5WfsisvGuero Harrisng DO Work Phone: [facility]05-31-2024 14:11-0400Body elyrzileiqa99.7 [degF]Guero Tam DO Work Phone: [facility]05-31-2024 14:11-0400Body .71 kgGuero Tam DO Work Phone: [facility] [employer] Qetmog62-19-1451 14:11-0400Diastolic blood ubhujbja82 mm[Hg]Guero Tam DO Work Phone: [facility]05-31-2024 14:11-0400Heart rate 75 /Milena Harrisng DO Work Phone: [facility]05-31-2024 14:11-0400 Respiratory rate20 /Milena Harrisng DO Work Phone: [facility]05-31-2024 14:11-4792ZmI0% (BldA) [Mass fraction]97 %Guero Tam DO Work Phone: [facility]05-31-2024 14:11-0400Systolic blood imabbcxo290 mm[Hg]Guero Tam DO Work Phone: [facility] [employer] Essgpp09-13-4945 22:00-0400Body mass index (BMI) [Ratio]29.7 kg/j8Uyllozjunito Harrisng DO Work Phone: [facility]05-22-2024 22:00-0400Body luinonfkntz96.59 [degF]Guero Harrisng DO Work Phone: [facility]05-22-2024 22:00-0400Body acqlbt90.34 kgDenjunito Harrisng DO Work Phone: [facility]05-22-2024 22:00-0400Diastolic blood wxogrwed31 mm[Hg]Guero Harrisng DO Work Phone: [facility] Eijagj21-13-3048 22:00-0400Heart rate 70 /Milena Harrisng DO Work Phone: [facility] Tdgrhz26-93-0754 22:00-0400 Respiratory rate20 /Milena Harrisng DO Work Phone: [facility] [employer] Cvjvpj68-43-1009 22:00-3458YvM6% (BldA) [Mass fraction]97 %Guero Harrisng DO Work Phone: [facility] [employer] Nuzqxm81-08-4147 22:00-0400Systolic blood qxsoegqd292 mm[Hg]Guero Tam DO Work Phone: [facility] [employer] Aryson07-62-8344 10:56-0400Body byiimi570.9 cmRaulito Inman MD Work Phone: [facility]05-21-2024 10:56-0400 Diastolic blood iiqudgwy91 mm[Hg]Raulito Inman MD Work Phone: [facility]05-21-2024 10:56-0400 Heart iaex708 /minRauliot Inman MD Work Phone: [facility]05-21-2024 10:56-0400 Systolic blood xxqceceb227 mm[Hg]Raulito Inman MD Work Phone: [facility]05-20-2024 09:37-0400 Blood Pressure LocationMokaren Montes [facility]05-20-2024 09:37-0400 Diastolic blood cnkgyehr00 mm[Hg]Mike Montes [facility]05-20-2024 09:37-0400Heart uspm953 /minMokaren Montes [facility]05-20-2024 09:37-0323NvR2% (BldA) [Mass fraction]98 %Mike Montes [facility]05-20-2024 09:37-0400 Systolic blood mm[Hg]Mike Montes [facility]05-15-2024 08:26-0400 Diastolic blood jxfzuwws76 mm[Hg]Mike Montes MD Work Phone: 1(144)[facility]05-15-2024 08:26-0400Systolic blood ocwovfpt476 mm[Hg]Mike Montes MD Work Phone: 1(178)[facility]05-15-2024 08:25-0400Body .9 cmMike Montes MD Work Phone: 1(319)[facility]05-15-2024 08:25-0400Body mass index (BMI) [Ratio]28.07 kg/d3YpzdfczMike Montes MD Work Phone: 1(114)[facility]05-15-2024 08:25-0400Body evzgzw48.89 kgMike Montes MD Work Phone: 1(359)[facility]05-14-2024 13:51-0400Body mrziltplyvh28.4 [degF]Guero Furlong DO Work Phone: [facility]05-14-2024 13:51-0400Body .89 kgDennis Furlong DO Work Phone: [facility]05-14-2024 13:51-0400Diastolic blood ysbgtzie17 mm[Hg]Guero Furlong DO Work Phone: [facility]05-14-2024 13:51-0400Heart rate 94 /minDennis Furlong DO Work Phone: [facility]05-14-2024 13:51-0400 Respiratory rate18 /minDennis Furlong DO Work Phone: [facility]05-14-2024 13:51-9421WvU7% (BldA) [Mass fraction]97 %Guero Furlong DO Work Phone: [facility]05-14-2024 13:51-0400Systolic blood yjkjrsrt126 mm[Hg]Guero Furlong DO Work Phone: [facility]05-07-2024 23:33-0400Body .1 [degF]Guero Mclong DO Work Phone: [facility] [employer] Ofggiz98-66-8320 23:33-0400Diastolic blood egpnkokb00 mm[Hg]Guero Furlong DO Work Phone: [facility]05-07-2024 23:33-0400Heart rate 102 /Saúlis Furlong DO Work Phone: [facility]05-07-2024 23:33-0400 Respiratory rate18 /Saúlis Furlong DO Work Phone: [facility]05-07-2024 23:33-7932BuD4% (BldA) [Mass fraction]98 %Guero Furlong DO Work Phone: [facility]05-07-2024 23:33-0400Systolic blood mvotxoxq598 mm[Hg]Guero Furlong DO Work Phone: [facility]05-03-2024 16:50-0400Body aagvfvbhbif83.4 [degF]Guero Mclong DO Work Phone: [facility]05-03-2024 16:50-0400Body bcnatl40.89 kgDenjunito Mclong DO Work Phone: [facility]05-03-2024 16:50-0400Diastolic blood xhyaifpg60 mm[Hg]Guero Mclong DO Work Phone: [facility]05-03-2024 16:50-0400Heart rate 98 /Milena Mclong DO Work Phone: [facility]05-03-2024 16:50-0400 Respiratory rate18 /minDadeolais Jesusitalong DO Work Phone: [facility]05-03-2024 16:50-8477JcG6% (BldA) [Mass fraction]96 %Guero Mclong DO Work Phone: [facility]05-03-2024 16:50-0400Systolic blood breobgha665 mm[Hg]Guero Mclong DO Work Phone: [facility]02-26-2024 12:00-0500Diastolic blood fniovwqg61 mm[Hg]DO Teresa Lynch Work Phone: [facility]02-26-2024 12:00-0500 Heart rate75 /Kade Lynch Work Phone: [facility]02-26-2024 12:00-0500 Systolic blood mm[Hg]DO Teresa Fraustos Work Phone: [facility]02-26-2024 08:33-0500 Respiratory rate18 /Kade Fisheran Jetts Work Phone: [facility]02-07-2024 18:03-0500 Diastolic blood phhdxnir39 mm[Hg]DO Teresa Fraustos Work Phone: [facility]02-07-2024 18:03-0500 Heart rate76 /minDO Teresa Lynch Work Phone: [facility]02-07-2024 18:03-0500 Respiratory rate20 /minDO Teresa Lynch Work Phone: [facility]02-07-2024 18:03-0500 SaO2% (BldA) [Mass fraction]98 %DO Teresa Lynch Work Phone: [facility]02-07-2024 18:03-0500 Systolic blood yjatqnjg368 mm[Hg]DO Teresa Lynch Work Phone: [facility]02-07-2024 16:15-0500 Body stjwto343.88 cmDO Teresa Lynch Work Phone: [facility]02-07-2024 16:15-0500 Body bzlimtvipno24.9 [degF]DO Teresa Lynch Work Phone: [facility]02-07-2024 16:15-0500 Body naeowc70.25 kgDO Teresa Lynch Work Phone: [facility]12-29-2023 10:56-0500 Blood Pressure LocationPabrenda ROWE [facility]12-29-2023 10:56-0500Body sqpaghraldt99.98 [degF]Yeyoneel ROWE [facility]12-29-2023 10:56-0500Diastolic blood ikeyvvwz08 mm[Hg]Yeyo ROWE [facility]12-29-2023 10:56-0500Heart rate68 /minYeyo ROWE [facility]12-29-2023 10:56-0500Systolic blood gawumtdc914 mm[Hg]Yeyo ROWE [facility]11-02-2023 13:15-0400Body .34 cmTeresa Lynch Other [employer] Other 11-02-2023 13:15-0400Body mass index (BMI) [Ratio] 29.43 kg/q7QcgmpTeresa Lynch Other [employer] Other 11-02-2023 13:15-0400Body lhokkm25.71 kgTeresa Lynch Other [employer] Other 11-02-2023 13:15-0400Diastolic blood dngvulcr18 mm[Hg] Teresa Lynch Other [employer] Other 11-02-2023 13:15-0400Respiratory rate18 /minTeresa Lynch Other [employer] Other 11-02-2023 13:15-6502GfG7% (BldA) [Mass fraction]97 % Teresa Lynch Other [employer] Other 11-02-2023 13:15-0400Systolic blood ieqihnil022 mm[Hg] Teresa Lynch Other [employer] Other 10-11-2023 08:30-0400Body .34 cmTeresa Lynch Other [employer] Other 10-11-2023 08:30-0400Body mass index (BMI) [Ratio] 29.01 kg/d2VvffnTeresa Lynch Other [employer] Other 10-11-2023 08:30-0400Body qzjzar49.35 kgTeresa Lynch Other [facility] [email or web address] Other 10-11-2023 08:30-0400Diastolic blood vnnpahel92 mm[Hg] Teresagorge Fraustocamille Other [facility] [facility] [employer] Other 10-11-2023 08:30-0400Respiratory rate16 /minTeresa Lynch Other [place] [employer] Other 10-11-2023 08:30-7726RaO6% (BldA) [Mass fraction]97 % Teresa Fraustocamille Other [place] [employer] Other 10-11-2023 08:30-0400Systolic blood wuhfuwde11 mm[Hg] Teresa [facility]ustocamille [facility] Other 09-13-2023 10:04-0400Body kbuktl010.88 cmTeresa Lynch Work Phone: mp454-2639OM-Rbsnm [place] [employer] 250 DO Work Phone: 1(135) 387-595209-13-2023 10:04-0400Body mass index (BMI) [Ratio] 28.62 kg/f2NtgluTeresa Lynch Work Phone: mp662-0795KE-Bxyfi [place] [employer] 250 DO Work Phone: 1(129) 894-928609-13-2023 10:04-0400Body surface area Derived from formula2.18 i8Tzorn Mari Lynch Work Phone: mp590-7276JE-Yqwxb [place] [employer] 250 DO Work Phone: 1(131) 613-376709-13-2023 10:04-0400Body fawmff74.71 kgPhillipgorge Mari Lynch Work Phone: mp144-2091MW-Ffsef [place] [facility] 250 DO Work Phone: 1(872) 634-939109-13-2023 10:04-0400Diastolic blood viuqtsio45 mm[Hg] Teresa Lynch Work Phone: mp605-5826FF-Kivty [place] [facility] 250 DO Work Phone: 1(133) [phone] 10:04-0400Heart rate76 /minTeresa Lynch Work Phone: mp619-8875QI-Ijcmh [place] [facility] 250 DO Work Phone: 1(186) 730-945509-13-2023 10:04-0400Systolic blood znimikfl637 mm[Hg] Teresa Lynch Work Phone: mp756-6174FM-Xqzwv [place] [facility] 250 DO Work Phone: 1(917) 756-725908-28-2023 10:23-0400Blood Pressure LocationPatrick ROWE [facility]08-28-2023 10:23-0400Diastolic blood mm[Hg]Yeyo ROWE [facility]08-28-2023 10:23-0400Heart rate68 /minPatrick ROWE [facility]08-28-2023 10:23-0400Respiratory rate16 /minPatrick ROWE [facility]08-28-2023 10:23-0400Systolic blood mm[Hg]Yeyo ROWE [facility]08-09-2023 15:08-0400Body qtasjn966.34 cmTeresa Lynch Work Phone: mp289-4033NB-Ytntq [place] [facility] 600 DO Work Phone: 1(809) 273-168908-09-2023 15:08-0400Body mass index (BMI) [Ratio] 30.13 kg/h6Pmmij Mari Lynch Work Phone: mp901-7496NE-[facility]zg[facility] 600 DO Work Phone: 1(077)[phone]-1956 15:08-0400Body surface area Derived from formula2.18 u8Ivknn Mari Lynch Work Phone: 1(551) 636-5406379-5178GZ-[facility]pTr[facility] 600 DO Work Phone: 1(552) 763-117708-09-2023 15:08-0400Body tzsnae20.98 kgTeresa Mari Lynch Work Phone: 1(575) [phone]-CjvckTr[facility] Medical Center 600 DO Work Phone: 1(045)[phone]-0378 15:08-0400Diastolic blood cetrnilf10 mm[Hg] Teresa Mari Lynch Work Phone: 1(902) 276-2625602-3191WS-SlncrTr[facility] Medical Center 600 DO Work Phone: 1(155)[phone] 15:08-0400Heart rate74 /minTeresa Mari Lynch Work Phone: 1(324) 191-8380367-8425WH-QigiaTr[facility] 600 DO Work Phone: 1(808) 257-270808-09-2023 15:08-0400Systolic blood teyvenjj962 mm[Hg] Teresagorge Lynch Work Phone: 1(590) 506-9552792-9335BQ-UmfwaTracy Medical Center 600 DO Work Phone: 1(824) 501-714106-29-2023 12:45-0400Body .34 cmTeresa Lynch Other [employer] Other 06-29-2023 12:45-0400Body mass index (BMI) [Ratio] 29.73 kg/h1SoomgTeresa Lynch Other [employer] Other 06-29-2023 12:45-0400Body ndwoxr79.71 kgTeresa Lynch Other [employer] Other 06-29-2023 12:45-0400Diastolic blood mm[Hg] Teresa Rory Other [employer] Other 06-29-2023 12:45-0400Respiratory rate18 /minTeresa Lynch Other [employer] Other 06-29-2023 12:45-5115XaO8% (BldA) [Mass fraction]94 % Teresa Lynch Other [employer] Other 06-29-2023 12:45-0400Systolic blood veesvcry646 mm[Hg] Teresa Lynch Other [employer] Other 06-21-2023 11:38-0400Blood Pressure LocationPasaint elizabeth fort thomask Unfold [facility]06-21-2023 11:38-0400Diastolic blood chdrgubu19 mm[Hg]Yeyo Unfold [facility]06-21-2023 11:38-0400Heart rate76 /minPatrick ROWE [facility]06-21-2023 11:38-0400Systolic blood rnxbtlyf299 mm[Hg]Yeyo Unfold [facility]01-30-2023 10:30-0500Body inoeww239.34 cmTeresa Lynch Other [employer] Other 01-30-2023 10:30-0500Body mass index (BMI) [Ratio] 29.43 kg/p4KcavgTeresa Lynch Other [employer] Other 01-30-2023 10:30-0500Body qvfech68.71 kgTeresa Lynch Other [employer] Other 01-30-2023 10:30-0500Diastolic blood ilhyglzm85 mm[Hg] Teresa Fraustos Other [employer] Other 01-30-2023 10:30-0500Respiratory rate16 /minTeresa Fraustos Other [employer] Other 01-30-2023 10:30-0500Systolic blood khukxadh082 mm[Hg] Teresagorge Fraustos Other [employer] Other 09-13-2022 13:45-0400Body jiouha446.34 cmTeresa Lynch Other [employer] Other 09-13-2022 13:45-0400Body mass index (BMI) [Ratio] 30.12 kg/e8WzwxnTeresa Lynch Other [employer] Other 09-13-2022 13:45-0400Body weyfvz52.98 kgTeresa Lynch Other [employer] Other 09-13-2022 13:45-0400Diastolic blood womxbqss61 mm[Hg] Teresa Fraustos Other [employer] Other 09-13-2022 13:45-0400Respiratory rate16 /minTeresa Fraustos Other [employer] Other 09-13-2022 13:45-8030NfQ1% (BldA) [Mass fraction]96 % Teresa Jettcamille Other [place] [employer] Other 09-13-2022 13:45-0400Systolic blood nyidjwlf375 mm[Hg] Teresa Lynch Other [place] [employer] Other 05-24-2022 10:01-0400Body .34 cmTeresa Guerra Rory Work Phone: mp370-8183FC-Ppfvp [place] [facility] 250 DO Work Phone: 1(506) [phone] 10:01-0400Body mass index (BMI) [Ratio] 29.99 kg/m7KyitrTeresa Fraustocamille Work Phone: mp376-4515SB-Evdua [place] [facility] 250 DO Work Phone: 1(187) 359-218805-24-2022 10:01-0400Body surface area Derived from formula2.17 y3Rhmhe Mari Lynch Work Phone: mp950-6954TS-Ayfou [place] [facility] 250 DO Work Phone: 1(444) [phone] 10:01-0400Body .52 kgTeresa Mari Lynch Work Phone: mp615-8864TW-Gohvm [place] [facility] 250 DO Work Phone: 1(963) 466-578905-24-2022 10:01-0400Diastolic blood zltkcqia49 mm[Hg] Teresa Lynch Work Phone: mp440-4125FR-Fzxll [place] [facility] 250 DO Work Phone: 1(801) 275-260405-24-2022 10:01-0400Heart rate68 /minTeresa Fraustos Work Phone: mp032-5827ED-Phowl [facility] 250 DO Work Phone: 1(339) 142-104005-24-2022 10:01-0400Systolic blood acobcvdi632 mm[Hg] Teresa Lynch Work Phone: 1(493) 532-8428270-1663JX-Qwhbj [place] [facility] 250 DO Work Phone: 1(424) 144-648105-17-2022 12:20-0400Body kechgs717.34 cmAtorsten Tonydariuscamille Other [employer] Other 05-17-2022 12:20-0400Body mass index (BMI) [Ratio] 30.65 kg/m2Amnia Ameliecamille Other [employer] Other 05-17-2022 12:20-0400Body gbqxjvfqhni21.8 [degF]Amina Fagan Other [employer] Other 05-17-2022 12:20-0400Body vtyfzi51.7 kgAmina Ameliecamille Other [employer] Other 05-17-2022 12:20-0400Diastolic blood mm[Hg] Amina Ameliecamille Other [employer] Other 05-17-2022 12:20-0400Respiratory rate18 /minAmina Ameliecamille Other [employer] Other 05-17-2022 12:20-9143VpU2% (BldA) [Mass fraction]98 % Norrisjuan Ameliecamille Other [employer] Other 05-17-2022 12:20-0400Systolic blood rnyulufv893 mm[Hg] Amina Amelies Other [employer] Other 02-22-2022 14:00-0500Body sshuml203.34 cmTeresa Lynch Other [employer] Other 02-22-2022 14:00-0500Body mass index (BMI) [Ratio]30.4 kg/l0RwzzgTeresa Lynch Other [employer] Other 02-22-2022 14:00-0500Body glyapk88.88 kgTeresa Lynch Other [employer] Other 02-22-2022 14:00-0500Diastolic blood pufndsdn96 mm[Hg] Teresa Fraustocamille Other [employer] Other 02-22-2022 14:00-0500Respiratory rate18 /minTeresa Lynch Other [employer] Other 02-22-2022 14:00-5749JwM0% (BldA) [Mass fraction]98 % Teresa Lynch Other [employer] Other 02-22-2022 14:00-0500Systolic blood lyjpfptl453 mm[Hg] Teresa Lynch Other [employer] Other Encounters Encounter DateEncounter TypeCare ProviderFacilityStart: 03-13-2025 End: 85-65-1964Txrszglub encounterTammbartolome Aguilar CMAProMedica Jobst Vascular FremontStart: 02-27-2025 End: 66-71-2082Yktcqh outpatient new 45 minutesMokaren Montes MD Work Phone: [facility]Path[facility] Healtht Vascular FremontComment on above: 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) (Primary Dx); Hx of right BKA (CMS-HCC); Cigarette smokerStart: 02-27-2025 End: 27-62-6695wvnbvlolztKCMFASK F [facility] PPGStart: 02-05-2025 End: 06-44-7732rufidtxmmiQFGCOX M [facility]tart: 02-05-2025 End: 34-05-2900Gngcpzaipw hospital visit by Mike Gómeza Nm Admin [facility] 1[facility]Comment on above:Chest pain, unspecified typeStart: 01-31-2025 End: 09-16-2569cusnryeytxShmgnga R WATERSFacility:EU BellevueStart: 01-31-2025 End: 80-02-4809Imcqpky encounter procedureYeyo ROWE [facility] start: 01-02-2025 End: 00-81-8734Svlufhmck encounterAngie Urban CMAProMedica Jobst Vascular FremontStart: 11-05-2024 End: 65-85-0911gdsqnuqcwxCuktd Jetts DO Work Phone: [facility] Work Phone: Start: 11-05-2024 End: 68-59-7653Ciyuk Kuns DO Work Phone: [facility] Work Phone: Start: 11-05-2024 End: 49-67-5940mkxjfpzpegKuyab Jetts DO Work Phone: [facility] Work Phone: Start: 11-05-2024 End: 70-27-5932Gwdbv Kuns DO Work Phone: [facility] Medicine Daniels Work Phone: Start: 10-26-2024 End: 03-52-1329Klqjbgv encounter procedureBrygorge Fraustos DO Work Phone: [facility] [place] Work Phone: Start: 10-26-2024 End: 56-24-9688Crinf Kuns DO Work Phone: [facility] [place] Work Phone: Start: 10-26-2024 End: 49-76-8834nfcrbvnhkhRhkth Kuns DO Work Phone: [facility] Work Phone: Start: 10-10-2024 End: 77-03-7228zznojgxqheCzrnr KunsFacility:[facility] Start: 10-10-2024 End: 26-09-4423Cltdztvxjh and management of inpatientBryan Jetts DO Work Phone: [facility] [place] [facility] Work Phone: Start: 00-51-8631qrqvvvwhuxe encounterBryan Jetts DO Work Phone: [facility] Work Phone: Start: 10-10-2024 End: 70-09-3055Njhue Kuns DO Work Phone: [facility] [place] [facility] Work Phone: Start: 98-65-7672kbzysuozytVPYPRTHO E PERRYFacility:EU [place]vueStart: 09-27-2024 End: 33-73-7866medhjaahjmUllkays R WATERSFacility:EU BellevueStart: 08-30-2024 End: 61-86-5927dhblmeylczBppwr Kuns DO Work Phone: [facility] Work Phone: Start: 08-30-2024 End: 13-49-9769Gaaebzz encounter procedureBryan Jetts DO Work Phone: [facility] Family Medicine [place] Work Phone: Start: 08-30-2024 End: 90-49-5312Mdpoe Kuns DO Work Phone: [facility] Medicine [facility] Work Phone: Start: 72-73-3096Dlo-patient / Non-visitBryan Kuns DO Work Phone: [facility] Work Phone: Start: 87-46-4909Ksshz Kuns DO Work Phone: [facility] Work Phone: Start: 08-11-2024 End: 15-51-8455Inmtteeost and management of inpatientBryan Kuns DO Work Phone: [facility] [place] [facility] Work Phone: Start: 08-11-2024 End: 46-47-0307Srmbt Kuns DO Work Phone: [facility] [place] [facility] Work Phone: Start: 08-02-2024 End: 56-66-6841mfbghbjlsjEQJIHGEC E PERRYFacility:EU [place]vueStart: 08-02-2024 End: 50-20-6219Ggjafrq encounter procedureJENNIFER E RASHI [facility] start: 75-56-7727Iwd-patient / Non-visitBryan Kuns DO Work Phone: [facility]Swed[facility] Work Phone: Start: 07-23-2024 End: 73-44-7276Dxzpyubbhf RecurringBryan Kuns DO Work Phone: [facility]-Physical Therapy [place] CreekStart: 59-67-3949Rzoljfqhet RecurringBryan Kuns DO Work Phone: [facility]-Physical Therapy [place] CreekStart: 07-23-2024 End: 50-15-1590vmcxthrkwbKzyia Kuns DO Work Phone: [facility] Work Phone: Start: 05-27-2024 End: 54-35-6312xgcqjbcwpyStmkkcf R WATERSFacility:FTMCStart: 05-27-2024 End: 03-49-6660Hyd Drop offYeyo ROWE [facility] Start: 05-27-2024 End: 39-81-1569mdluqutmbeMfgchiu R WATERSFacility:EU [place]vueStart: 05-27-2024 End: 11-92-6866Owhdesc encounter procedureYeyo ROWE [facility] [place] start: 05-07-2024 End: 90-53-3355Prqjcxy encounter procedureTeresa Lynch DO Work Phone: [facility] [place] Work Phone: Start: 04-24-2024 End: 87-95-3056ieyuiuzxiyFxnrpy R Russell MD Work Phone: [facility] Work Phone: Start: 04-24-2024 End: 71-99-4865Zlkmxmq encounter procedureKait Dan MD Work Phone: [facility] Rehab and Spine Work Phone: Start: 61-01-1222Vsu-patient / Non-visitKait Dan MD Work Phone: [facility] Work Phone: Start: 04-23-2024 End: 89-47-3151Xfiyxqqla to same day surgery centerKait Dan MD Work Phone: [facility]-Digestive Health Work Phone: Start: 04-23-2024 End: 59-03-0430ccwaxetzvvEmyshk R Russell MD Work Phone: [facility] Work Phone: Start: 76-99-4457Und-patient / Non-visitKait Dan MD Work Phone: [facility] Work Phone: Start: 04-04-2024 End: 96-70-4623uwdwbwqbhvLK Ashley R Russell Work Phone: [facility] Work Phone: Start: 04-04-2024 End: 41-89-3556Ojxfjhp encounter procedureMD Kait Dan Work Phone: [facility] Work Phone: Start: 69-09-7232Obx-patient / Non-visitMD Kait Dan Work Phone: [facility] Work Phone: Start: 03-22-2024 End: 66-55-3014Xjmguhokh encounterKelFormerly [facility] - DillonComment on above:Blood Sugar Problem (High blood sugars)Start: 03-21-2024 End: 21-04-2675hjcillyzgpNM Ashley R Russell Work Phone: [facility] Work Phone: Comment on above:History of right below knee amputation (CMS-HCC) (Primary Dx)Start: 03-21-2024 End: 24-35-2228Lrekkya encounter procedureMD Kait Dan Work Phone: [facility] Work Phone: Start: 03-21-2024 End: 58-84-2957UI Kait Dan Work Phone: firjamieOdersun [facility] Work Phone: Start: 03-19-2024 End: 49-91-2492lrmbzrndgkQccrrk Ines Mcloasim DO Work Phone: [facility] Physicians Internal Medicine - Family MedicineComment on above:Diabetic polyneuropathy associated with type 2 diabetes mellitus ([facility]-HCC) (Primary Dx); Encounter for orthopedic aftercare following surgical amputation; Other abnormalities of gait and mobility; Restless leg syndromeStart: 03-15-2024 End: 56-08-3661bnhztqzuylMvwghc Anel DO Work Phone: [facility] Internal Medicine - Family MedicineComment on above:Diabetic polyneuropathy associated with type 2 diabetes mellitus (CMS-HCC) (Primary Dx); Disorientation; Other abnormalities of gait and mobility; Status post partial amputation of right foot (CMS-HCC); Atherosclerosis of [place] coronary artery of [place] heart without angina pectoris; Atrial fibrillation ([facility]-HCC); Primary hypertensionStart: 03-15-2024 End: 54-22-8926Oerhaxsaq encounterAllbertrand Kim [facility] Physicians Jobst VascularStart: 31-46-3764oovtogqdybMBLJGIUMagnolia [facility] Center Ambulatory PPGStart: 06-74-7369Ygh-patient / Non-visitMD Kait Dan Work Phone: firVisualShareu [facility] Work Phone: Start: 98-92-0534EN Kait Dan Work Phone: [facility] Work Phone: Start: 57-59-1014Luj-patient / Non-visitMD Kait Dan Work Phone: [facility] Med OutPt Work Phone: Start: 59-86-3052IQMD Kait Dan Work Phone: [facility] Work Phone: Start: 03-08-2024 End: 88-27-3302Nryhhqytpr and management of inpatientMD Kait Dan Work Phone: [facility] Work Phone: Start: 03-08-2024 End: 87-12-5414AA Kait Dan Work Phone: [facility] [place] [facility] Work Phone: Start: 03-08-2024 End: 13-48-8804Cerhsvfce department patient visitMOLiberty Regional Medical Center PPGStart: 98-90-8168Wdt-patient / Non-visitMD Kait Dan Work Phone: [facility] Gastroenterology Work Phone: Start: 76-98-2568VX Kait Dan Work Phone: [facility] Gastroenterology Work Phone: Start: 03-04-2024 End: 01-69-1988Dkjzwrtiod and management of inpatientMD Kait Dan Work Phone: [facility] [place] [facility] Work Phone: Start: 03-04-2024 End: 65-89-3807PK Kait Dan Work Phone: [facility] [place] [facility] Work Phone: Start: 34-91-4665Ssksoovekr and management of inpatientMD Kait Dan Work Phone: [facility] [place] [facility] Work Phone: Start: 08-15-7931jzbiwjeycjc encounterMD Kait Dan Work Phone: [facility] Work Phone: Start: 02-29-2024 End: 75-11-5732Zzhbyv follow up visit related to original pxMike Montes MD Work Phone: [facility] Vascular SurgeryComment on above:PAD (peripheral artery disease) ([facility]-HCC) (Primary Dx)Start: 02-28-2024 End: 92-70-2653queevrcowgHerrfx G Furlong DO Work Phone: [facility] Internal Medicine - Family MedicineComment on above:Encounter for orthopedic aftercare following surgical amputation (Primary Dx); Cigarette smoker; Diabetic polyneuropathy associated with type 2 diabetes mellitus ([facility]); Other abnormalities of gait and mobility; Muscle spasmStart: 02-23-2024 End: 68-09-3143hzjyaqvxclTnihng Ines Mckayleeasim DO Work Phone: [facility] Internal Medicine - Family MedicineComment on above:Encounter for orthopedic aftercare following surgical amputation (Primary Dx); Other abnormalities of gait and mobility; BPH with obstruction/lower urinary tract symptoms; Diabetic polyneuropathy associated with type 2 diabetes mellitus ([facility]); Atherosclerosis of [place] coronary artery of [facility] heart without angina pectoris; Heart failure, unspecified HF chronicity, unspecified heart failure type ([facility]); Primary hypertension; Peripheral arterial disease ([facility]); Chronic obstructive pulmonary disease, unspecified COPD type ([facility]); Gastroesophageal reflux disease, unspecified whether esophagitis present; Muscle weakness (generalized)Start: 02-12-2024 End: 40-79-1138Swaumeueaw and management of inpatientMD Mike Montes Facility:FTMCStart: 00-45-3346wqbshgqoakDwccgwh R WATERSFacility:EU [place] Start: 33-41-0809bkqfdrlukdQydorzf JenniferMary MontesFacility:FTMCStart: 02-12-2024 End: 78-42-0634Dwomnogmkb and management of inpatientDerekkaren Jasiel Simon [facility] Start: 52-83-4401Zrx-patient / Non-visitMD Kait Dan Work Phone: [facility] Work Phone: Start: 81-72-9150UK Kait Dan Work Phone: [facility] Work Phone: Start: 02-01-2024 End: 90-85-3498Opctjpdzq Result EncounterMohamed Myriam Montes MD Work Phone: [facility] External Department UnsolicitedStart: 02-01-2024 End: 83-90-9529Cqmueldic Result EncounterMohamed Myriam Montes MD Work Phone: [facility] External Department UnsolicitedStart: 02-01-2024 Non-patient / Non-visitMD Kait Dan Work Phone: [facility]pearlingtont Physician [facility] Work Phone: Start: 54-86-4197RW Kait Dan Work Phone: [facility] Work Phone: Start: 71-57-6950Uqj-patient / Non-visitMD Kait Dan Work Phone: [facility] Work Phone: Start: 67-87-3254FR Kait Dan Work Phone: [facility]i [facility] GroupE[facility] Work Phone: Start: 01-18-2024 End: 32-97-2843Uigoqh outpatient visit 25 minutesMohamed Jennifer Montes MD Work Phone: [facility] Vascular SurgeryComment on above: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) (Primary Dx); Cigarette smokerStart: 01-17-2024 End: 30-29-8467Utesyvnuhp hospital visit by Mike [facility] [address] [place], [place] [address]Comment on above:Shortness of breathStart: 01-08-2024 End: 02-56-1257tkcumrpkcrGP Mike MontesFacility:FTMCStart: 64-00-1361Nbr- patient / Non-visitMD Kait Dan Work Phone: [facility] Family Medicine Daniels Work Phone: Start: 22-40-9768LI Kait Dan Work Phone: [facility] Family Medicine [facility] Work Phone: Start: 01-01-2024 End: 71-40-0372vlsltxuxfrBAMETFGFlint River Hospital AmbulatoryStart: 01-01-2024 End: 73-39-4603Aorbrlruy for preprocedural cardiovascular examinationFlint River Hospital AmbulatoryStart: 06-03-5017Lxq-patient / Non-visitMD Kait Dan Work Phone: [facility] Work Phone: Start: 35-16-9073XS Kait Dan Work Phone: [facility] Work Phone: Start: 26-63-8353Ldo-patient / Non-visitMD Kait Dan Work Phone: firVisualSharec Physician GroupSwed[facility] Work Phone: Start: 73-54-3088OI Kait Dan Work Phone: [facility] GroupSwed[facility] Work Phone: Start: 36-62-7103Xii-patient / Non-visitMD Kait Dan Work Phone: [facility] Family Medicine [facility] Work Phone: Start: 99-31-6791DV Kait Dan Work Phone: [facility] [facility] Family Medicine [facility] Work Phone: Start: 09-63-8350Upv-patient / Non-visitMD Kait Dan Work Phone: [place]p [facility] Daniels Work Phone: Start: 74-02-1137KS Kait Dan Work Phone: [facility]m [facility] Work Phone: Start: 13-64-6059Aga-patient / Non-visitMD Kait Dan Work Phone: [facility]pearlingtonx [facility] GroupSwed[facility] Work Phone: Start: 29-93-5083DP Kait Dan Work Phone: [facility] GroupSwed[facility] Work Phone: start: 67-90-7780Hue-patient / Non-visitMD Kait Dan Work Phone: [facility]c [facility] GroupSwed[facility] Work Phone: Start: 21-51-7005HY Kait Dan Work Phone: [facility]k [facility] GroupSwed[facility] Work Phone: Start: 77-73-5435Drk-patient / Non-visitMD Kait Dan Work Phone: [facility] GroupSwed[facility] Work Phone: Start: 14-43-2931OK Kait Dan Work Phone: [facility] Physician [facility] Work Phone: Start: 12-21-2023 End: 84-50-7726Vqctmc outpatient visit 25 minutesMike Montes MD Work Phone: [phone] Comment on above: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 ([facility]-HCC) (Primary Dx)Start: 12-15-2023 End: 29-06-9379sjqpacpfmhYP Teresa Rory Work Phone: [facility] Work Phone: Start: 12-15-2023 End: 75-02-1424Letchpcd ReferredDO Teresa Lynch Work Phone: [facility] [place] [facility]Start: 12-15-2023 End: 58-25-2560EK Kait Dan Work Phone: [facility] [place] HospStart: 98-24-9191Xpy-patient / Non-visitMD Kait Dan Work Phone: [facility] Work Phone: Start: 28-60-4118BP Kait Dan Work Phone: [facility] Work Phone: Start: 15-09-1349Pkl-patient / Non-visitDO Teresa Rory Work Phone: [facility] Work Phone: Start: 30-64-6913QC Kait Dan Work Phone: [facility] Work Phone: Start: 88-81-2842Pru-patient / Non-visitDO Teresagorge Lynch Work Phone: [facility] Work Phone: Start: 89-99-3903JBMD Kait Dan Work Phone: firAbs[employer] Physician GroupSwedish [facility] Work Phone: Start: 11-30-2023 End: 75-63-8624drwqceoreoLkjmry G Furlong DO Work Phone: [facility] Internal Medicine - Family MedicineComment on above: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) (Primary Dx); 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 (CMS-HCC); Delayed surgical wound healing of foot amputation stump (CMS-HCC); Other abnormalities of gait and mobilityStart: 11-30-2023 End: 49-00-6278Lpegau follow up visit related to original Radha Montes MD Work Phone: [facility] Comment on above: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) (Primary Dx); Cigarette smoker motivated to quitStart: 77-09-0630Wkj-patient / Non-visitDO Teresa Lynch Work Phone: [employer] [facility]Swed[facility] Work Phone: Start: 11-24-2023 End: 81-20-1852vizmcyqnwxDilmnf G Furlong DO Work Phone: [facility] Internal Medicine - Family MedicineComment on above:Status post partial amputation of right foot (CMS-HCC) (Primary Dx); Other abnormalities of gait and mobility; Leg edema; Primary hypertension; Hypotension due to drugs; 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); Diabetic polyneuropathy associated with type 2 diabetes mellitus (CMS-HCC)Start: 11-23-2023 End: 23-95-6156djfzhzmeziCUOCAUK C DERISOProMedica Gloverville HospitalStart: 11-15-2023 End: 00-24-7996ennattxhrzVTDV D [facility]ITALProMedica Sebring HospitalStart: 94-18-5056Cpb-patient / Non-visitDO Teresa Lynch Work Phone: [employer] [facility] Work Phone: Start: 11-14-2023 End: 22-57-8783Yrfgcxclby and management of inpatientMOHAMED OSMANProMedica Marina HospitalStart: 11-10-2023 End: 12-76-1424Ptdsopnqu Yuniel Yu MD Work Phone: [facility] VascularStart: 11-07-2023 End: 36-56-4534Mxbuxsqitg and management of inpatientARMELLE Snehal AQUINOAshtabula County Medical Center HospitalStart: 11-07-2023 End: 80-34-9293voxqoakbaeFvuwxs G Furlong DO Work Phone: [facility] [...] current use of insulin (CMS-HCC)Start: 11-07-2023 End: 92-38-2814Wjeepblzkr and management of inpatientMOHAMED F GabrielaClermont County Hospital HospitalStart: 11-03-2023 End: 11-67-9568zosafsflabDowspf Ines Tam DO Work Phone: [facility] Internal Medicine - Family MedicineComment on above:Status post partial amputation of right foot (CMS-HCC) (Primary Dx); Pressure ulcer of right ankle, stage 3 (CMS-HCC); Other abnormalities of gait and mobility; Delayed surgical wound healing of foot amputation stump (CMS-HCC)Start: 10-25-2023 End: 84-01-5282scgdzrfmeyTyfhuy Ines Tam DO Work Phone: [facility] Internal Medicine - Family MedicineComment on above:Status post partial amputation of right foot (CMS-HCC) (Primary Dx); Osteomyelitis of right foot, unspecified type (CMS-HCC); Muscle weakness (generalized); Other abnormalities of gait and mobility; Chronic obstructive pulmonary disease, unspecified COPD type (CMS-HCC); Peripheral arterial disease (CMS-HCC)Start: 59-77-6048Hnbkazfkhbbc state[address] StreetStart: 47-50-5457Lzjetfieg for preprocedural cardiovascular examinationFlint River Hospital Ambulatory Start: 10-24-2023 End: 70-46-5501Bugybw outpatient visit 25 minutesRaulito Inman MD Work Phone: [facility] HospitalComment on above:History of PTCA; Hyperlipidemia, unspecified hyperlipidemia type; Encounter for pre-operative cardiovascular clearance; Former smokerStart: 10-24-2023 End: 43-14-4685Ejlreim encounter Lisa Inman MD Work Phone: [facility] Work Phone: Start: 10-23-2023 End: 87-14-8679ymkaxjmensVUDedra MontesFacility:FTMCStart: 10-23-2023 End: 34-24-5981Slyrtcb encounter procedureMokaren Montes [facility] Start: 10-19-2023 End: 05-68-6049zmnheopqveVSDedra MontesFacility:FTMCStart: 10-19-2023 End: 68-48-8941Xjhhhxu encounter procedureMokaren Weathers Simon [facility] Start: 10-18-2023 End: 60-40-6032Bmikvdkbb encounterAlejuan Aguilar Jobst VascularStart: 10-18-2023 End: 92-45-5496Epttgf outpatient new 45 minutesMike Montes MD Work Phone: [facility] Jobst VascularComment on above: 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 ([facility]-HCC) (Primary Dx); Poor circulation; Heavy tobacco smoker >10 cigarettes per dayStart: 10-18-2023 End: 16-25-2377dlwtqexvbnHZXCSBQGinger Pillai Marina HospitalStart: 10-17-2023 End: 18-66-1905vdcdkgyodwCmihrm G Furlong DO Work Phone: [facility] Internal Medicine - Family MedicineComment on above:Status post partial amputation of right foot ([facility]-HCC) (Primary Dx); 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 ([facility]-HCC); Type 2 diabetes mellitus with stage 4 chronic kidney disease, without long-term current use of insulin ([facility])Start: 10-10-2023 End: 02-59-6400kyaywhrgwvQmiofa Ines [employer] Work Phone: [facility] Physicians Internal Medicine - Family MedicineComment on above:Diarrhea, unspecified type (Primary Dx); Other acute osteomyelitis of right foot (CMS-HCC); Status post partial amputation of right foot ([facility]-HCC); Chronic obstructive pulmonary disease, unspecified COPD type ([facility]-HCC); Abscess of right foot; Type 2 diabetes mellitus with stage 4 chronic kidney disease, without long-term current use of insulin ([facility])Start: 10-06-2023 End: 21-93-7924iuteiyubxzXbdbem G Furlong DO Work Phone: [facility] Internal Medicine - Family MedicineComment on above:Abscess of right foot (Primary Dx); Status post partial amputation of right foot ([facility]-HCC); Type 2 diabetes mellitus with stage 4 chronic kidney disease, without long-term current use of insulin ([facility]); Atherosclerosis of [place] coronary artery of [place] heart without angina pectoris; Bacterial sepsis ([facility]); Other acute osteomyelitis of right foot ([facility]); Chronic obstructive pulmonary disease, unspecified COPD type ([facility]); Cigarette smoker; BPH with obstruction/lower urinary tract symptoms; Gastroesophageal reflux disease, unspecified whether esophagitis present; Restless leg syndrome; Hyperlipidemia, unspecified hyperlipidemia type; Carpal tunnel syndrome, unspecified laterality; Heart failure, unspecified HF chronicity, unspecified heart failure type ([facility])Start: 32-46-5252Lla-patient / Non-visitDO Teresa Lynch Work Phone: [facility]Swed[facility] Work Phone: Start: 10-05-2023 End: 31-79-0620uvhxdaoxolDG Bryan Kuns Work Phone: [facility] Work Phone: Start: 10-05-2023 End: 08-71-3391Xgjxgxdw ReferredDO Teresa Lynch Work Phone: [facility]-LAB Path Spec [place] HospStart: 53-87-0305Vno-patient / Non-visitDO Teresa Lynch Work Phone: [facility] Work Phone: Start: 80-28-2449Aau-patient / Non-visitDO Teresa Lynch Work Phone: [facility] Work Phone: Start: 01-83-1112Tnh-patient / Non-visitDO Teresa Lynch Work Phone: [facility] Work Phone: Start: 10-02-2023 End: 99-32-9355expibatrxeTI Teresa Lynch Work Phone: [facility] Work Phone: Start: 10-02-2023 End: 91-01-2718Bwtsnhzk ReferredDO Teresa Lynch Work Phone: [facility]-LAB Path Spec [place] HospStart: 88-93-4380Cbf-patient / Non-visitDO Teresa Lynch Work Phone: [facility] Work Phone: Start: 08-96-9229Asb-patient / Non-visitDO Teresa Lynch Work Phone: [facility] Work Phone: Start: 67-87-6615Ucb-patient / Non-visitDO Teresa Lynch Work Phone: [facility] Work Phone: Start: 26-61-6218Kjh-patient / Non-visitDO Teresa Lynch Work Phone: [facility] Work Phone: Start: 09-21-2023 End: 72-36-4791urfmirknrlCX Teresa Lynch Work Phone: [facility] Work Phone: Start: 09-21-2023 End: 46-07-1072Qmofxaxe ReferredDO Teresa Lynch Work Phone: [facility]-LAB Path Spec [place] HospStart: 36-00-6110Emc-patient / Non-visitDO Teresa Lynch Work Phone: [facility] Work Phone: Start: 63-42-3075Qef-patient / Non-visitDO Teresa Lynch Work Phone: [facility] Work Phone: Start: 09-08-2023 End: 07-62-3017kotceowvnmSzvkxax R WATERSFacility:EU BellevueStart: 09-08-2023 End: 19-94-8013Ryvqojn encounter procedureYeyo ROWE [facility] start: 81-01-1442Uzi-patient / Non-visitDO Teresa Lynch Work Phone: [facility]Swed[facility] Work Phone: Start: 23-68-7444Vdd-patient / Non-visitDO Teresa Lynch Work Phone: [facility]Swed[facility] Work Phone: Start: 67-46-1086Htk-patient / Non-visitDO Teresa Lynch Work Phone: [facility] Work Phone: Start: 16-51-6594Wnz-patient / Non-visitDO Teresa Lynch Work Phone: [facility] Work Phone: Start: 20-33-1670Tig-patient / Non-visitDO Teresa Lynch Work Phone: [facility]Swed[facility] Work Phone: Start: 77-31-1269Aiu-patient / Non-visitDO Teresa Lynch Work Phone: [facility] Work Phone: Start: 23-27-1446Hlg-patient / Non-visitDO Teresa Lynch Work Phone: [facility] Work Phone: Start: 83-46-4150Yywxdupgbg RecurringDO Teresa Lynch Work Phone: [facility]-Infusion Therapy - O/P Work Phone: Start: 78-28-9207Pjq-patient / Non-visitDO Teresa Lynch Work Phone: [facility] Work Phone: Start: 07-12-2023 End: 05-34-9840Hdagcnopy department patient visitDO Teresa Lynch Work Phone: [facility]-Emergency Room Work Phone: Start: 07-07-2023 End: 71-32-9774qwjdhawachBmbos Kuns Other [facility] FIZZA Other Start: 69-49-2702Hlzepkbus encounterTeresa LynchFPG Family Medicine CastaliaStart: 07-03-2023 End: 73-87-4785ecfnyunolfEiiapen R WATERSFacility:EU BellevueStart: 06-26-2023 End: 19-74-3730bynixibfggGhfbr Kuns Other [facility] [employer] Other Start: 10-57-5776Ltpemikkx encounterTeresa LycnhInes [facility] CastaliaStart: 06-02-2023 End: 62-79-2468fxdvdohfrzQewwyed R WATERSFacility:EU [place]vueStart: 06-02-2023 End: 19-97-6910Whqxovf encounter procedurePatrick R ROWE [facility] start: 05-16-2023 End: 67-12-1662hiudfdbnunDhumy Kuns Other [facility] [employer] Other Start: 29-23-8620Todxpccde encounterPhillipgorge LynchBrockton Hospital CastaliaStart: 05-03-2023 End: 14-27-6832uetuhhygmfBlcxkih R WATERSFacility:EU yStart: 05-03-2023 End: 39-36-4454Ntdakta encounter procedurePatrick R ROWE [facility] Start: 04-28-2023 End: 46-53-1560licpnaimikMzbed Kuns Other [facility] [employer] Other Start: 08-82-4094Iqmtkpvaw encounterPhillipgorge FraustoFall River Hospital CastaliaStart: 04-18-2023 End: 44-99-2978rypqbnkahfSskdxvq R WATERSFacility:EU [place]kyStart: 04-18-2023 End: 72-34-1618Usjpelg encounter procedurePatrick R ROWE [facility] Start: 87-19-4767njabtsqlyfSygazjy R WATERSFacility:EU [place]vueStart: 04-13-2023 End: 70-67-8038kbsopnqigqAywgtnr Viktoria ROWEFacility:CD:[id number]: 04-11-2023 End: 91-28-2586rkaxgjgbdgSfzjm Jetts Other noLela Other Start: 22-43-3076Izugshyro encounterBrygorge LynchInes [facility] CastaliaStart: 04-06-2023 End: 24-06-2652wcomewpvxgTieji Kuns Other noLela Other Start: 89-75-5672Mwcjslsjy for other preprocedural examinationBrygorge FraustocamilleFLAGSTAFF MEDICAL [facility]ENTER Family Medicine CastaliaStart: 28-01-3832Rayhou outpatient visit 25 minutesTeresa RoryG Family Medicine CastaliaStart: 03-28-2023 End: 28-64-1625lwuqrcyasvOtony Kuns Other noLela Other Start: 83-19-7396Lcevjijgw encounterBrygorge LynchInes Family Medicine CastaliaStart: 19-85-1089egrshlrqbmIogefjh R WATERSFacility:EU ueStart: 03-15-2023 End: 40-30-8646rmqxgivalhWvvmyhn R [employer] Other Start: 67-40-8824Csztyz outpatient visit 25 minutes Teresa RoryInes Family Medicine CastaliaStart: 03-10-2023 End: 72-87-6297ddmnlywggeCrmkt Kuns Other noLela Other Start: 52-88-6340Tlqpzbwzu encounterBrygorge LynchG Family Medicine CastaliaStart: 27-65-6829Vrrvgr outpatient visit 15 minutesTeresa Fraustocamille Work Phone: [phone]-IebntWadena Clinic-[place] 250 DO Work Phone: Start: 31-43-5492ddkpurpjypMgybk SmithFacility: Start: 02-14-2023 End: 77-95-0549Djlkezz encounter procedurePatricgloria Viktoria Unfold [facility] Start: 02-08-2023 End: 05-01-5081Feqqxnu encounter procedurePatricgloria Viktoria Unfold [facility] Start: 01-30-2023 End: 25-43-1278Jlodxva encounter procedurePatricgloria Viktoria Unfold [facility] start: 93-27-9612jzzifxjpckPmulatoryDr. Teresa Lynch Facility:[id number]: 01-17-2023 End: 40-21-8237rqnyvkveciGbfbo Kuns Other [place] [employer] Other Start: 76-91-5474Odktfjfas encounterTeresa LynchFPG Family Medicine CastaliaStart: 79-46-6304Ozlvfn outpatient visit 25 minutesTeresa Fraustocamille Work Phone: [phone]-HqvwlWadena Clinic-[place] 600 DO Work Phone: Start: 52-54-8242hlqvgacrxjFgnpe SmithFacility: Start: 12-28-2022 End: 16-47-1893Mgqyhpv encounter procedurePatriclgoria Viktoria ROWE [facility] Start: 12-01-2022 End: 84-02-9145mfmyxxqpvqBwrlk Kuns Other noLela Other Start: 35-28-2095Lhcvvc outpatient visit 25 minutes Teresa Tenorio [facility] CastaliaStart: 11-23-2022 End: 61-17-7914Gcuhtvb encounter procedurePatricgloria Viktoria ROWE [facility] [place] Start: 10-07-2022 End: 47-56-4306cluukfedexTfqnw Kuns Other noLela Other Start: 95-10-2732Khmqqdrkh encounterTeresa Tenorio Family Medicine CastaliaStart: 09-27-2022 End: 44-00-3638kfzieoeknuTI Teresa Lynch Work Phone: [facility] Work Phone: Start: 09-27-2022 End: 02-80-7297Yguouuy encounter procedureDO Teresa Lynch Work Phone: [facility]-Lab [facility] [employer] Work Phone: Start: 09-21-2022 End: 42-23-5821cmnhcnczvaUfbtv Kuns Other noLela Other Start: 37-05-2521Ingkcdowv encounterTeresa Tenorio [facility] CastaliaStart: 09-14-2022 End: 53-43-1861rbubjfvuyqZmcnn Kuns Other noLela Other Start: 47-51-4186Mlqcrhxxr encounterTeresa Tenorio Family [facility] CastaliaStart: 09-02-2022 End: 69-55-5775Akohkvq encounter procedureDO Teresa Lynch Work Phone: [facility]-MRI [facility] [employer] Work Phone: start: 08-25-2022 End: 13-12-5833xmrzpbkollQztgkc [place] Other noLela Other Start: 38-39-8427Naztmtdkd encounterTondra MapusFPG Referral CoordinatorStart: 08-22-2022 End: 15-02-3179qilmcpaeqiBttnz Kuns Other noLela Other Start: 31-87-4706Ikgmaznzl encounterBryan JettsFPG Family Medicine CastaliaStart: 08-05-2022 End: 87-52-6304wgowtmrgfzEswnl Kuns Other noLela Other Start: 87-40-2820Zhooowigp encounterBryan JettsFPG Family Medicine CastaliaStart: 08-04-2022 End: 75-80-0576rldlseztsvXztrx Kuns Other noLela Other Start: 97-03-1582Cardfjwlk encounterBryan JettsFPG Family Medicine CastaliaStart: 07-28-2022 End: 51-76-3342mqpyruhkmoXprmn Kuns Other noLela Other Start: 05-54-8397Hqxnagsjk encounterBryan JettsFPG Referral CoordinatorStart: 07-25-2022 End: 79-76-3961lqxvkmiajhHtssh Kuns Other noLela Other Start: 27-16-8507Dfcsmlk evaluation of patient and reportBrygorge FraustosFPG Family Medicine CastaliaStart: 07-19-2022 End: 85-45-9980dapalmqknaEbnkc Kuns Other [employer] Other Start: 50-17-0115Lxqtirjuv encounterTeresa Tenorio Family [facility] CastaliaStart: 07-15-2022 End: 95-06-5434edsouylqgbCozqj Kuns Other noLela Other Start: 33-70-6251Gjdcilfph encounterTeresa VillagomezG Family Medicine CastaliaStart: 07-13-2022 End: 63-98-0997ejfkobqrgmOgflp Kuns Other [employer] Other Start: 12-77-6117Ejhmekf evaluation of patient and reportTeresa Jona [facility] CastaliaStart: 48-17-3895bhwhavpzanNlulatoryDr. Raulito Inman IIFacility:[id number]: 07-05-2022 End: 47-06-7397ywcrqtdgohCaflv Kuns Other [facility] [employer] Other Start: 33-91-4546Byxteuqhn encounterPhillipgorge LynchG Family Medicine CastaliaStart: 03-95-6803Yz RenewalTeresa Lynch Work Phone: [phone]-RdheuRed Lake Indian [facility] 250 DO Work Phone: Start: 07-04-2022 End: 71-30-7797qxxvtnnyonIprrm Kuns Other [facility] [employer] Other Start: 64-94-1504Glcicg outpatient visit 25 minutes eTresa FraustoPortia Family Medicine CastaliaStart: 06-30-2022 End: 80-47-1066rxxqqsrywjVbczd Kuns Other noLela Other Start: 62-72-8608Nxhwhdkqw encounterTeresa RoryFPG Family Medicine CastaliaStart: 05-25-2022 End: 00-74-1100tbijzjfddzQharu Kuns Other noLela Other Start: 99-72-1363Kcqzfcbkt encounterBrygorge VillagomezG Family Medicine CastaliaStart: 04-25-2022 End: 49-23-5192rpxqdlaiwlDmftr Kuns Other noLela Other Start: 81-09-2941Lymhoarwp encounterBrygorge LynchFPG Family Medicine CastaliaStart: 04-19-2022 End: 31-20-9645szazjrjzkmZcqsp Kuns Other noLela Other Start: 39-40-1901Rljgjlxzb encounterBrygorge LynchFPG Family Medicine CastaliaStart: 03-22-2022 End: 65-90-4611jelmztrtedDheaz Kuns Other noLela Other Start: 57-94-4064Cfqpgbrva encounterBrygorge LynchFPG Family Medicine CastaliaStart: 03-01-2022 End: 66-56-4178vpximpgowxIqkkn Kuns Other noLela Other Start: 19-06-6212Gclqreimg encounterBrygorge LynchFPG Family Medicine CastaliaStart: 02-18-2022 End: 35-06-5842wjjpujcxgzCvrlc Kuns Other noLela Other Start: 92-34-8270Kpegkjqzc encounterBrygorge LynchFPG Family Medicine CastaliaStart: 02-15-2022 End: 21-17-3866vjjhtnlmqfWtdj Fitt Other noLela Other Start: 35-57-5552Hhgwjp outpatient visit 25 minutes Tersea RroyFPG Family Medicine CastaliaStart: 67-79-6032Eqtllqrzs encounterDawn [facility] ClinicStart: 01-21-2022 End: 60-25-5632jbzhsfiqgrBzuch Kuns Other [facility] [employer] Other Start: 89-21-2612Zljspgkxg encounterBrygorge RoryFPG Family Medicine CastaliaStart: 01-19-2022 End: 49-85-4173pccqsfedqaWvyzi Kuns Other [facility] [employer] Other Start: 30-19-2540Bdllljngf encounterBrygorge RoryFPG Family Medicine CastaliaStart: 01-13-2022 End: 89-72-2877zucysyxlpaLxhab Kuns Other [facility] [employer] Other Start: 82-07-4640Niiovhpml encounterBrygorge RoryFPG Family Medicine CastaliaStart: 12-23-2021 End: 48-51-1081axuixkrfwuWflsr Kuns Other [facility] [employer] Other Start: 86-01-9432Skfudnjxh encounterBrygorge RoryFPG Family Medicine CastaliaStart: 11-24-2021 End: 96-56-1974xwovvohuzcQomyp Kuns Other [facility] [employer] Other Start: 93-63-1230Skvnopaio encounterBrygorge LynchFPG Family Medicine CastaliaStart: 31-62-7253Tc RenewalTeresa Lynch Work Phone: [phone]-IavjoWinona Community Memorial Hospitalusky 250 DO Work Phone: Start: 76-23-9778Gscmno outpatient visit 25 minutes Teresa Lynch Work Phone: [phone]-CvartAlomere Health [facility] 250 DO Work Phone: Start: 10-25-2021 End: 11-48-2807kgsilidnknSjzqi Kuns Other noLela Other Start: 94-11-4519Vuxmpbpmn encounterBrygorge FraustosFPG Family Medicine CastaliaStart: 10-19-2021 End: 33-78-6827omnqrxjmxoTkno Bakdariuss Other noLela Other Start: 71-55-7701Ypyolv outpatient visit 25 minutes Azjuan Jorgensen NephrologyStart: 10-18-2021 End: 40-99-7713huzzycfhcyTbhs Bakdariuss Other noLela Other Start: 36-58-1429Ycsxgrnfu encounterAzjuan Jorgensen NephrologyStart: 10-12-2021 End: 29-16-3410aswnimjoydZGJXED PETER .Facility:E6Ebkmm: 10-08-2021 End: 09-18-6625isivoweglvYjjmb Jetts Other noLela Other Start: 48-43-5154Okvqwvjfo encounterBrygorge LynchFPG Family Medicine CastaliaStart: 09-22-2021 End: 17-67-6411ekyiwkarcaNhcgj Kuns Other noLela Other Start: 94-18-1522Vizcitcfe encounterBryan JettsFPG Family Medicine CastaliaStart: 09-21-2021 End: 84-64-7677algwaijcvpSajan Kuns Other noLela Other Start: 54-20-5241Jkknbpfbq encounterBryan JettsFPG Family Medicine CastaliaStart: 08-09-2021 End: 01-17-6579ffywfgznipMagiy Kuns Other noLela Other Start: 51-63-2430Dubzjcnwh encounterPhillipgorge JettPortia Family Medicine CastaliaStart: 08-02-2021 End: 04-65-6719nnujwdkuyrPbfcg Kuns Other [employer] Other Start: 44-73-3468Zvjoienxo encounterTeresa FraustoEdmundG Family Medicine CastaliaStart: 07-27-2021 End: 60-78-0249gcwirgsfsbEvdcb Kuns Other [facility] [employer] Other Start: 69-80-5110Iabiyp outpatient visit 25 minutes Teresa FraustocamilleRIGOBERTO Family Medicine CastaliaStart: 06-23-2021 End: 85-05-4746psrauttkzhIopun Kuns Other [facility] [employer] Other Start: 05-15-1034Nugkqpsqs encounterTeresa FraustoEdmundG Reading Primary CareStart: 20-07-8292Zs RenewalTeresa Lynch Work Phone: [phone]-Mivcl [facility] 250 DO Work Phone: Start: 05-03-2021 End: 49-82-3980pzclojiuujAggbw Kuns [facility] [employer] Other Start: 97-98-6722Busdzdqtw encounterTeresa FraustoEdmundG Family Medicine Daniels Procedures DateProcedureProcedure DetailPerforming ClinicianStart: 91-52-2304Zv strs tst xers&/or rx cont ecg trcg Terrence Arnold MD Work Phone: Start: 29-49-5574Hvuuz chest X-rayTeresa Lynch DO Work Phone: Start: 06-69-4356TS angiography of headTeresa Lynch DO Work Phone: Start: 71-50-5496MA angiography of neck vesselsBrygorge Lynch DO Work Phone: Start: 04-87-2343FZ of head without contrastBrygorge Lynch DO Work Phone: Start: 04-93-5818Bpabo chest X-rayTeresa Lynch DO Work Phone: Start: 20-74-7663VjhskvowcdxvsswzminjdoajgvOiwkbx Russell MD Work Phone: Start: 23-09-2499PZM of abdomen with contrast Kaitjana Dan Work Phone: Start: 97-99-7499Pyrkdhoekayvccj of liverMD Kait Sy Work Phone: start: 53-29-8249Jzash X-ray of left elbowMD Kaitjana Dan Work Phone: start: 64-88-6638Ylgrp X-ray of left shoulderMD Kait Dan Work Phone: Start: 77-61-9399Yokxshmtcedzoba of bilateral kidneys MD Kait Dan Work Phone: start: 96-97-1403AYZ of headMD Kait Dan Work Phone: start: 52-30-9855Xuuik chest X-rayMD Kaitjana Dan Work Phone: start: 28-99-3635WH angiography of headMD Kait Dan Work Phone: start: 23-02-2782YR angiography of neck vesselsMD Kait Dan Work Phone: start: 87-70-8251EN of head without contrastMD Kaitjana Dan Work Phone: start: 67-14-8639Rtpsf culture for bacteria, including anaerobic screenMD Kait Sy Work Phone: Start: 27-09-7062Fqmcbcmuktx Panel (PCR)MD Kait Dan Work Phone: Start: 61-00-5813Kopthmiissi Panel (PCR)Kait Dan MD Work Phone: start: 40-92-6180MF Kait Dan Work Phone: start: 13-95-9673Naywmpgv resonance angiography of head without contrastMD Kait Dan Work Phone: Start: 17-66-8991Cbtuskif screenBryan KunsComment on above:Order Comment: Number of units to transfuse now? 1Result Comment: PERFORMED BY:[facility] [place], [place] [phone] MEDICAL DIRECTORCLIFFORD LOBATO M.D.Start: 77-80-3605L- ray of right kneeMD Kait Sy Work Phone: Start: 35-99-4333Nqwgqho ultrasonography of bilateral carotid arteriesMD Kait Dan Work Phone: Start: 44-75-8635AT of head without contrastMD Kait Dan Work Phone: start: 64-05-5026Tynbipry tomography of abdomen and pelvis with contrastMD Kait Dan Work Phone: Start: 97-84-5493RUHK-CoV-2, Influenza & RSV (PCR)MD Kait Dan Work Phone: Start: 39-18-8051Btsaa nucleic acid assayKait Dan MD Work Phone: Start: 48-25-5029Dlvmy chest X-rayMD Kait Dan Work Phone: Start: 36-32-7363Bpkgsdnkru of leg through tibia and fibulaMohamed Simon Start: 73-65-5998AKS CBC WITH AUTO DIFFMohamed Fm Simon HERRERA Work Phone: [phone])Start: 42-30-2061Krrocaqcho through metatarsal bones Mohamed Simon Start: 83-99-8212Cotrx Culture 1MD Kait Dan Work Phone: Start: 54-97-4204Hszrw Culture 2MD Kait Dan Work Phone: Start: 34-29-8496HP Kait Dan Work Phone: Start: 95-16-2071Gvgth Culture 1DO Teresa Lynch Work Phone: Start: 25-15-9137Dxbne Culture 2DO Teresa Lynch Work Phone: Start: 98-63-7014Qocqw Culture 1DO Teresa Rory Work Phone: Start: 37-64-2552Xlakp Culture 2DO Teresa Lynch Work Phone: Start: 20-50-1409Yjkuo depression screening assessment Franny Yu MD Work Phone: [phone]: 26-96-2488Ayi routine ecg w/least 12 lds w/i&r Raulito Inman MD Work Phone: Start: 10-06-2023 End: 35-38-0321Qrqhepf of amputation of footStatus post partial amputation of right foot ([facility])Guero Mckayleeasim DO Work Phone: Start: 85-76-5004Zwlm Fast SmearDO Teresa Lynch Work Phone: Start: 50-13-1634RCJ Specimen ProcessingDO Teresa Lynch Work Phone: Start: 47-19-5772Sqakvssgudl observation [Identifier] in Unspecified specimen by Gram stainDO Teresa Lynch Work Phone: Start: 04-40-4518Efrnnw CultureDO Teresa Rory Work Phone: Start: 76-93-6134Ijzxv Culture 1DO Teresa Lynch Work Phone: Start: 27-22-2129Rxszh Culture 2DO Teresa Lynhc Work Phone: Start: 87-25-3976Cparu CultureDO Teresa Lynch Work Phone: Start: 26-58-9619Gtbpepetikj observation [Identifier] in Unspecified specimen by Gram stainDO Teresa Lynch Work Phone: Start: 84-21-2492Iuan Fast CultureDO Teresa Lynch Work Phone: Start: 46-11-8027Xros Fast SmearDO Teresa Lynch Work Phone: Start: 77-03-0636WYQ Specimen ProcessingDO Teresa Lynch Work Phone: Start: 70-15-0297Xrhoqzpsmdu observation [Identifier] in Unspecified specimen by Gram stainDO Teresa Lynch Work Phone: Start: 48-06-8547Ztaqbd CultureDO Teresa Lynch Work Phone: Start: 82-93-3786Fibzujnuugs observation [Identifier] in Unspecified specimen by Gram stainDO Teresa Lynch Work Phone: Start: 00-27-3156Nsawx Culture 1DO Teresa Lynch Work Phone: Start: 53-26-9730Rylpo Culture 2DO Teresa Lynch Work Phone: Start: 93-11-2714Cbxtehdtmir observation [Identifier] in Unspecified specimen by Gram stainDO Teresa Lynch Work Phone: Start: 60-96-2810Lrenu CultureDO Teresa Lynch Work Phone: Start: 87-91-1756Jpgsy Culture 1DO Teresa Lynch Work Phone: Start: 70-11-3167Qjccx Culture 2DO Teresa Lynch Work Phone: Start: 62-11-0387Vcofwi scan of lower limb veinsDO Teresa Lynch Work Phone: Start: 48-89-8856Njuanh scan veins of upper limbDO Teresa Lynch Work Phone: Start: 66-99-5773Ozmvv chest X-rayDO Teresa Lynch Work Phone: Start: 73-86-7922Atrbwgtraykjg prostatectomyPabrenda ROWE Start: 61-31-2381Fzafapy of percutaneous transluminal coronary angioplastyHistory of PTCEstefani Inman MD Work Phone: Start: 80-83-6402Cyfjilsionibl cystoscopyPabrenda ROWE Start: 61-22-3770NDQ of headDO Teresa Lynch Work Phone: Start: 72-68-9965Uubme colonoscopyTeresa Lynch Work Phone: AngiographyMohamed Simon Comment on above:RLE Angiogram with drug coated ballooningAppendectomyPhillipgorge Mari Lynch Work Phone: AppendectomyPasaint elizabeth fort thomasgloria ROWE Bilateral Carpal Tunnel SurgeryPatrick SOLEDAD Bilateral [...] footStatus post partial amputation of right foot ([facility])Guero Tam DO Work Phone: History of amputation of footStatus post partial amputation of right foot ([facility])Guero Tam DO Work Phone: History of amputation of footStatus post partial amputation of right foot ([facility])Guero Chacon JOYsee Interaction Science and Technologykayleeng DO Work Phone: History of amputation of footStatus post partial amputation of right foot ([facility])Guero Chacon JOYsee Interaction Science and Technologykayleeng DO Work Phone: History of amputation of footStatus post partial amputation of right foot ([facility])Guero Tam DO Work Phone: History of amputation of footStatus post partial amputation of right foot ([facility])Guero Harrisng DO Work Phone: History of amputation of footStatus post partial amputation of right foot ([facility])Guero Chacon JOYsee Interaction Science and Technologykayleeng DO Work Phone: History of percutaneous transluminal coronary angioplastyHistory of PTCAshlyn Lynch Work Phone: History of percutaneous transluminal coronary angioplastyHistory of PTCEstefani Inman MD Work Phone: Procedure on backBrygorge Lynch Work Phone: Comment on above:nerve ablation;Procedure on back Yeyo ROWE Scrotum and testicle operationBrygorge Lynch Work Phone: Plan of Treatment DateCare ActivityDetailAuthorStart: 41-39-0361TWoR/Tdap/Td Vaccines (2 - Td or Tdap)DTaP/Tdap/Td Vaccines (2 - Td or Tdap)[facility] Start: 29-60-6128Awoqy BMI ScreeningAdult BMI ScreeningCincinnati [facility] Medical Center System Start: 58-38-0829LzetxejppuelhootIzbwvxgqxyydiuDjwlnwpvuf [facility] Start: 36-25-2455Pwhizol CounselingTobacco CounselingProSt. Francis Hospitalca [facility] Start: 04-03-2025 End: 42-77-9562Lewestx encounter ttrcswyaa33/30/2025 11:00 AM EDT [facility] [place] [address] Mike Montes MD [address] [facility] [address] [place] [address] Addison Hernández [facility] Centertart: 63-91-7954Dlehp BMI ScreeningAdult BMI ScreeningProSt. Francis Hospitalca [facility] SystemStart: 03-12-2025 End: 93-54-3953Oaqykpf encounter bcbfladbr05/08/2025 3:50 PM EDT Office Visit [address] [place] [address] Bernard De La Cruz MD [address] [facility] [address] [place] [address] [facility]: 82-51-3823Cyidn BMI ScreeningAdult BMI ScreeningProSt. Francis Hospitalca Health SystemStart: 12-63-3425Hktbedy ScreeningTobacco ScreeningProSt. Francis Hospitalca Health SystemStart: 85-22-8277Mzqos BMI ScreeningAdult BMI ScreeningProMedica St. 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 ([facility]) Expected: 02/27/2025, Expires: 02/27/2026ProHale County Hospital Health SystemComment on above:Expected: 02/27/2025, Expires: 02/27/2026Start: 02-27-2025 End: 52-60-4465OC.doppler Extremity arteries - bilateral for physiologic artery studyVas art doppler lwr bilat mult lev/PVR Vascular Ultrasound Routine 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) Expected: 02/27/2025, Expires: 02/27/2026[facility] Work Phone: Comment on above:Expected: 02/27/2025, Expires: 02/27/2026Start: 72-33-4766HOBUT-19 Vaccine ( season)COVID-19 Vaccine ( season)[facility] HospitalStart: 21-38-0100Pzyizqcxi vaccinationProMedica Health SystemStart: 96-42-9716Ejtde BMI ScreeningAdult BMI ScreeningProMedica Health SystemStart: 59-09-8059Gkjzalx ScreeningTobacco ScreeningProMedica Health SystemStart: 35-82-3158Lnyig BMI ScreeningAdult BMI ScreeningProMedica Health SystemStart: 36-10-0497Cxuxbtv ScreeningTobacco ScreeningProMedica Health SystemStart: 55-11-0810Nqpcj BMI ScreeningAdult BMI ScreeningProMedica Health SystemStart: 55-98-4451Ytvwiob ScreeningTobacco ScreeningProMedica Health SystemStart: 68-85-9167Yrnph BMI ScreeningAdult BMI ScreeningProMedica Health SystemStart: 43-94-3461Fifpa BMI ScreeningAdult BMI ScreeningProMedica Health SystemStart: 44-53-3992Ufpqlno ScreeningTobacco ScreeningProMedica Health SystemStart: 58-24-2495Icoicku ScreeningTobacco ScreeningProMedica Health SystemStart: 39-82-4826Hgvwvekero ScreeningDepression ScreeningProMedica Health SystemStart: 72-80-7977Axvdwqd referralMercy Health [facility] Work Phone: Start: 65-28-5733Ckcyv BMI ScreeningAdult BMI ScreeningProMedica Health SystemStart: 10-21-2024 End: 95-18-0045Zwfewnq encounter ubpboixre70/19/2025 8:00 AM EDT Office Visit [facility] [address] [facility] [address] [place] [address] Dolores Pickard, TUBE SIZER AND CUTTER OPERATOR-WALLPAPERER HELPER [address] [facility] [address] [place] [address] [facility] HospitalStart: 70-81-2838Lnhxg BMI ScreeningAdult BMI ScreeningSalem Regional Medical Center Health SystemStart: 01-24-5036Ahgdqav ScreeningTobacco ScreeningProKettering Memorial Hospital SystemStart: 88-45-4330EyvdyojcfCoshocton Regional Medical Centertart: 99-57-3249LpeoxucacCoshocton Regional Medical Centertart: 10-11-2024 End: 77-12-2841EipdddfpnCoshocton Regional Medical Centertart: 10-10-2024 End: 81-97-3893EromvqnjaCoshocton Regional Medical Centertart: 02-26-7879Edhcjrkj admissionCoshocton Regional Medical Centertart: 87-14-7098Ugyjiufm to cardiologistCoshocton Regional Medical Centertart: 64-91-4165Lrfdgnq referral [facility] Work Phone: Start: 24-77-1354PyarqxrvkSt. Mary'S Medical Center Start: 40-95-5537KfwrzgiewCoshocton Regional Medical Centertart: 08-11-2024 End: 69-73-8205WbslfwfmcCoshocton Regional Medical Centertart: 77-57-9231Bzryzrhu therapy procedureCoshocton Regional Medical Centertart: 77-54-9008Hmkahnwl to occupational therapistCoshocton Regional Medical Centertart: 64-85-2428Zrstfrqm admissionCoshocton Regional Medical Centertart: 82-78-7008Juvmiofr to nephrologistCoshocton Regional Medical Centertart: 27-34-5040KJ angiography of headCoshocton Regional Medical Centertart: 52-28-6388JL angiography of neck vesselsCoshocton Regional Medical Centertart: 39-76-6241RU Head WO contrast [facility] Centertart: 11-64-9010RE of head without contrastCT head stroke alert wo [facility] Daytontart: 45-53-0785Vsfqy chest X-rayXR chest 1V portableCoshocton Regional Medical Centertart: 83-39-1460QW Chest Single viewCoshocton Regional Medical Centertart: 08-11-2024 End: 92-90-1631YseazbbtwCoshocton Regional Medical Centertart: 98-82-6067VuatusqpwCoshocton Regional Medical Centertart: 26-28-0044InkzbwyhwCoshocton Regional Medical Centertart: 03-11-2024 End: 02-04-9818Qzpnkgx encounter /07/2024 8:40 AM EDT Office Visit [place] [address] [facility] [address] [place] [address] Bernard De La Cruz MD [address] [facility] [address] [place] [address] [facility] HospitalStart: 62-45-9591Swraspqf to aircraft maintenance supervisor [facility] Centertart: 14-43-3294Hzoceankpdxhu metabolic 2000 panel - Serum or PlasmaCoshocton Regional Medical Centertart: 03-09-2024 End: 80-16-3077AiklknuucCoshocton Regional Medical Centertart: 31-43-2326Oyhojvit to psychiatristCoshocton Regional Medical Centertart: 79-80-3360Sbkcuung to neurologMarymount Hospitaltart: 03-08-2024 End: 56-56-1451DiowqnvtiCoshocton Regional Medical Centertart: 44-89-8304Wrricnpx admissionCoshocton Regional Medical Centertart: 19-86-1132Tjbfx chest X-ray [facility] Centertart: 68-30-6363Cccgnchqktsg consultation with patientCoshocton Regional Medical Centertart: 67-06-0747Jpdlo culture for bacteria, including anaerobic screenCoshocton Regional Medical Centertart: 73-33-6609JtkvstxsnCoshocton Regional Medical Centertart: 68-46-1272Yeeyokpj to gastroenterologistCoshocton Regional Medical Centertart: 10-97-0272Jimuievk to gastroenterologistCoshocton Regional Medical Centertart: 45-32-3902Mcjbjuef to neurologistCoshocton Regional Medical Centertart: 77-93-6282LnffkrhbrCoshocton Regional Medical Centertart: 35-89-9497Mvuahjmm admissionCoshocton Regional Medical Centertart: 02-29-2024 End: 68-55-7965Cytmhks encounter uilinlpwk25/26/2024 9:30 AM EDT Office [facility] [address] [place] [address] Mike Montes MD [address], [address] [address] [facility] SurgeryStart: 76-51-3849SYYOR-19 Vaccine ( season)COVID-19 Vaccine ()[facility] Hospitaltart: 56-96-9625IUPKM-19 Vaccine ( season)COVID-19 Vaccine ()[facility] Start: 24-05-2335Vfykewrub vaccinationMercy Memorial HospitalStart: 12-21-2023 End: 27-78-7861Mbvrmyk encounter pvuclhbkd10/18/2024 8:40 AM EDT Office Visit [facility] [address] [phone] Mike Montes MD [address], [address] [address] [facility] CareStart: 11-30-2023 End: 89-95-4835Ekvrpcg encounter oaxznephf22/27/2024 8:50 AM EDT Office Visit [facility] [address] [place] [address] Mike Montes MD [address], [address] [address] [facility]ound CareStart: 11-23-2023 End: 10-15-5521Dwyafbh encounter procedureOhioHealth Riverside Methodist Hospital - VascularStart: 11-23-2023 End: 25-51-5537Xiuxism encounter /20/2024 9:40 AM EDT Office Visit [facility] [address] [place] [address] Mike Montes MD [address], [address] [address] [facility] Physicians Vascular Surgery and Wound CareStart: 84-00-0691PUA, Provider: Raulito Inman, Status: Pen, Time: 2:40 PMFUV, Provider: Raulito Inman, Status: Pen, Time: 2:40 PM- [facility] [address] DO Work Phone: Start: 11-07-2023 End: 52-98-4382Avmpzjzyu to same day surgery gywhoq3711/07/2023 3:00 PM EDT - 11/07/2023 4:00 PM EDT Surgery [facility] - Cardiac Cath [address] [place] [address] Mike Montes MD [address], [address] [address] Vascular Invasive Right lower extremity angiogramwith interventionProCincinnati Va Medical Center Cardiac CathComment on above:Vascular Invasive Right lower extremity angiogram with interventionStart: 73-48-6315Ahmvxvzxxj hospital visit by rhpqprsda96/04/2024 3:00 PM EDT Hospital Encounter [facility] Cardiac Cath [address] [place] [address] Mike Montes MD [address], [address] [address] Critical limb ischemia of right lower extremity with gangrene ([facility]) [facility] Cardiac CathComment on above:Critical limb ischemia of right lower extremity with gangrene ([facility])Start: 10-18-2023 End: 32-37-6441TAW Abdominal Aorta and Bilateral Runoff Vessels W contrast IV [facility] SystemComment on above:Expected: 10/18/2023, Expires: 10/17/2024Start: 10-18-2023 End: 84-22-6525DE.doppler Extremity arteries - bilateral for physiologic artery studyProMedica Work Phone: Comment on above:Expected: 10/18/2023, Expires: 10/17/2024Start: 52-13-4811Wbhh Fast CultureAcid Fast [facility] Centertart: 96-45-4809Dvicq Culture 1Blood Culture 1FTriHealth Good Samaritan Hospitaltart: 02-94-4607Uqkwz Culture 2Blood Culture 2FTriHealth Good Samaritan Hospitaltart: 52-54-7746Pkvtk CultureWound [facility] Centertart: 28-11-0783Ivroxkh CultureAbscess [facility] Centertart: 28-86-1640Yzdg Fast CultureAcid Fast [facility] Centertart: 52-95-5633Knfce CultureWound [facility] Centertart: 34-45-6887Unzysu scan of lower limb veinsUS venous duplex LE BIFTriHealth Good Samaritan Hospitaltart: 37-48-1627TU Lower extremity vein - bilateralCoshocton Regional Medical Centertart: 07-12-2023 Duplex scan veins of upper limbUS venous duplex UE LTCoshocton Regional Medical Centertart: 15-77-4385SI Upper extremity vein - leftCoshocton Regional Medical Centertart: 07-05-7185TWN, Provider: Dolores Velazquez, Status: Pen, Time: 10:00 AMFUV, Provider: Dolores Velazquez, Status: Pen, Time: 10:00 [facility] [address] DO Work Phone: Start: 77-02-0073BIWPD-19 Vaccine ( season) COVID-19 Vaccine ( season)[facility] HospitalStart: 48-35-7488SXARXW NUC, Provider: CHALINO HHVI NUCLEAR ,[id number], Status: Pen, Time: 8:30 AMSTRESS NUC, Provider: CHALINO HHVI NUCLEAR ,[id number], Status: Pen, Time: 8:30 AMCambridge [facility] Centerwalk [address] DO Work Phone: Start: 16-81-4955IKJ, Provider: Raulito Inman, Status: Pen, Time: 9:20 AMFUV, Provider: Raulito Inman, Status: Pen, Time: 9:20 AM[facility] 250 DO Work Phone: Start: 49-62-1034SLY, Provider: Raulito Inman, Status: Pen, Time: 9:30 AMFUV, Provider: Raulito Inman, Status: Pen, Time: 9:30 AMRed [facility] 250 DO Work Phone: Start: 79-83-8879Ywqoaawqehwa vaccinationPneumococcal Vaccine (2 of 2 - PCV)[facility]: 03-05-2019 Pneumococcal Vaccine: Pediatrics (0 to 5 Years) and At-Risk Patients (6 to 64 Years) (2 of 2 - PCV)Pneumococcal Vaccine: Pediatrics (0 to 5 Years) and At-Risk Patients (6 to 64 Years) (2 of 2 - PCV)[facility]: 02-58-8242Oruqlmhjclspmn of varicella zoster vaccineZoster (Shingles) Vaccine (1 of 2)[facility] IN-PIPE TECHNOLOGY SystemStart: 83-54-1012Bxezoand specific antigen measurementPSA Prostate Cancer ScreeningUnGreen Cross Hospital: 20-43-0370Kunely Vaccines (1 of 2)Zoster Vaccines (1 of 2)[facility]: 37-56-6311ETpT/Tdap/Td Vaccines (1 - Tdap)DTaP/Tdap/Td Vaccines (1 - Tdap)[facility]: 95-75-7869WIrB,Tdap and Td Vaccines (1 - Tdap)DTaP,Tdap and Td Vaccines (1 - Tdap)[facility] IN-PIPE TECHNOLOGY SystemStart: 77-74-8068Levfywwmh B Vaccines (1 of 3 - 19+ 3-dose series) Hepatitis B Vaccines (1 of 3 - 19+ 3-dose series)[facility]: 81-25-8968Rvdsz screening for proteinDiabetes: Urine Protein ScreeningUniversity Hospitals Portage [facility]: 68-97-1788Fkcaw BMI Follow Up PlanAdult BMI Follow Up PlanProMedica Health SystemStart: 61-52-3707Kbngk BMI ScreeningAdult BMI ScreeningHighsmith-Rainey Specialty Hospitaltart: 36-53-3426Cczqfwaj foot examinationDiabetic Foot ExamProSelect Medical Specialty Hospital - [facility] Northtart: 1983 Hepatitis C screeningHepatitis C ScreeningMercy Memorial Hospital Start: 87-50-3851Fhativxghq ScreeningDepression ScreeningCincinnati Children's Hospital [facility] Start: 48-91-3513Nhlnxmx ScreeningTobacco ScreeningHighsmith-Rainey Specialty Hospitaltart: 46-76-9608Zqcurdab foot examinationDiabetes: Foot ExamUnGreen Cross Hospital: 40-98-2187Swgppybi screeningDiabetes: Retinopathy Screening [facility]: 91-63-3410NSC Vaccines (1 of 1 - Standard series)MMR Vaccines (1 of 1 - Standard series)[facility]: 50-76-1130Afrmawjmvv measurementCreatinine LevelUnGreen Cross Hospital: 08-62-2909JocvofenrskoxfblSeuqhsiyfbygkwMvfyqbbfqa [facility]Start: 52-38-1569Vqesyude screeningDiabetic Ophthalmology ExamProSelect Medical Specialty Hospital - [facility] Northtart: 04-86-5740Jwzjcxuxqd A1c measurementDiabetes: Hemoglobin X6XYijvwjvqdyGreen Cross Hospital: 10-93-3012MVR screeningHIV ScreeningUnGreen Cross Hospital: 98-57-5430Wwmzy panelLipid PanelUnGreen Cross Hospital: 35-80-1209Reysnfadj measurement Potassium LevelUnGreen Cross Hospital: 65-59-3339Tiqzminys for malignant neoplasm of colonUnGreen Cross Hospital: 1965 Statin Use: CardiovascularStatin Use: CardiovascularCincinnati Children's Hospital Medical Center Start: 04-31-7516Nlhiwj Use: DiabeticStatin Use: DiabeticCincinnati Children's Hospital Medical Center Start: 04-53-0014Ctjgyki CounselingTobacco CounselingCincinnati Children's Hospital [facility] Center Start: 07-08-0096Dyaht screening for proteinDiabetes: Urine Protein Screening [facility]: 21-28-7851Wjplri Adult PhysicalYearly Adult PhysicalUnUniversity Hospitals Geneva Medical CenterBacteria identified in Blood by CultureSt. Mary'S Medical CenterComprehenve metabolic 2000 panel - Serum or PlasmaSt. Mary'S Medical CenterComprehensive metabolic 2000 panel - Serum or PlasmaSt. 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 Mary'S Medical CenterPatient Education [facility] Work Phone: Patient referralRegency Hospital [facility]tr Work Phone: Renal function 1999 panel - Serum or PlasmaSt. Mary'S Medical CenterRenal function 1999 panel - Serum or [facility] End: 49-85-3448ZP Heart [facility] Service Area Work Phone: Comment on above:Once for 1 Occurrences starting 01/17/2024 until 01/17/2024[facility] Immunizations Immunization DateImmunizationNotesCare BmergrhsIiomrwaq94-96-2842Ddskvz-UblMFwxq COVID-19 Vacc 30 MCG/0.3ML Intramuscular SuspensionBryan P Kuns Work Phone: [facility]05-21-2021Pfizer-BioNTech COVID-19 Vacc 30 MCG/0.3ML Intramuscular SuspensionBryan P Kuns Work Phone: [facility]08-12-2019influenza, seasonal, injectableBryan Kuns Other [facility]08-12-2019influenza virus vaccine, unspecified formulationPatrick ROWE [facility]10-29-2018influenza virus vaccine, unspecified formulationPatrick ROWE [facility]10-29-2018influenza, injectable, quadrivalent, preservative freeDO Teresa Rory Work Phone: [facility]10-01-2018influenza virus vaccine, unspecified formulationBryan P Kuns Work Phone: [phone]-[facility]inRed [facility] 250 DO Work Phone: [phone] polysaccharide vaccine, 23 valentBryan P Kuns Work Phone: [phone]-AdvxkRed [facility] 250 DO Work Phone: [phone] virus vaccine, unspecified formulationPatrick ROWE [facility]10-03-2016influenza, injectable, quadrivalent, preservative freeBryan P Kuns Work Phone: [facility]09-19-2016 pneumococcal polysaccharide vaccine, 23 valentBryan P Kuns Work Phone: [facility] HealthNEGATED: Highlighted row has not occurred!10-06-1483yalasnjty virus vaccine, unspecified formulationJECHUCKIEDAMION VANG [facility] Payers DatePayer CategoryPayerPolicy [id number] (Managed Care)[facility] [employer] [id number]-xxk [id number] 2024Medicaid [id number] Health Insurance [id number] Health Insurance [id number] Health Insurance [id number] [id number] [id number] 2..1.229456.3.579.2.593 [id number] 2..1.839433.3.579.2.490308-93-5286Zmhmcwh [id number] 2..1.576598.3.579.2.15410-86-3135Vgeltpn794541721 2..1.444072.3.579.2.72323-87-2184Ywfvdsf453154879 2..1.608514.3.57[id number] 2.0.1.101151.3.579.2.[id number] 2.0.1.569505.3.579.[id number] 2.16.840.1.090763.3.579.2.009046-38-9071Bnerpqw52188920 2.16.840.1.447810.3.579.2.245832-17-5549Ikotowg56254354 2.16.840.1.577749.3.579.2.580607-32-8884Aqsnrlg57419315 2.16.840.1.002137.3.579.2.448260-26-2846Okdvdol60499581 2.16.840.1.672377.3.579.2.068891-03-2333Qfiyccr45975707 2.16.840.1.848920.3.579.2.310535-03-3523Jayvyhs62784200 2.840.1.708350.3.579.2.43218-98-3093Fddmevq48837772 2.840.1.299586.3.579.2.02237-73-9595Uiinvmk48761598 2.840.1.519583.3.579.2.07282-35-9904Lpzvhci81382853 2.840.1.218339.3.579.2.81352-08-9956Vigzagm87909381 2.840.1.158329.3.579.2.14166-27-5593Gzolbim28518339 2.840.1.823750.3.579.2.47033-64-2186Zoupzuh85991474 2.840.1.354835.3.579.2.14196-49-5269Byzcrne90532398 2.16.840.1.888771.3.579.2.01068-37-0530Yrfhnqo61135402 2.16840.1.605208.3.579.2.86930-10-4808Ocnxqho19176617 2.16.840.1.354603.3.579.2.06129-36-1598Asgjmwm11225153 2.16.840.1.025291.3.579.2.36929-91-4076Dihdbmv08539360 2.16.840.1.788602.3.579.2.17566-74-4182Fvttkxr03820571 2.16.840.1.690492.3.579.2.91686-02-7907Usclkyq90764608 2..840.1.853943.3.579.2.49283-65-3573Mvemnup20715949 2.840.1.260348.3.579.2.91612-10-3961Hormjjd85601418 2.840.1.699262.3.579.2.01851-24-6205Tfofewa28297019 2.840.1.366901.3.579.2.98325-13-6068Hooflxk85129055 2.16.840.1.356602.3.579.2.14549-48-8479Vqegbcg42997425 2.16840.1.888589.3.579.2.77365-47-1128Osrdgpd40919732 2.16840.1.524726.3.579.2.70377-76-9698Nqhjpju71387957 2.16840.1.579602.3.579.2.43045-93-6401Lnogjdy14969460 2.16.840.1.700845.3.579.2.48349-67-5859Xcgcwin66474941 2.16840.1.115405.3.579.2.55119-78-2961Bzyxjxg94470799 2.16.840.1.892391.3.579.2.90025-27-4788Dcppbmp89943460 2.16.840.1.773634.3.579.2.47056-83-7537Efokyjv94536353 2.16.840.1.940641.3.579.2.15527-35-2118Tfqgivw05259033 2.16.840.1.065130.3.579.2.60215-08-2613Tswoqrz46802658 2.16.840.1.665575.3.579.2.75434-79-5293Idvualb07869472 2.16.840.1.115672.3.579.2.95877-76-3599Swoynxl49817160 2.16.840.1.532456.3.579.2.34692-80-2947Kankafi22848440 2.16.840.1.107241.3.579.2.211857-78-9156Lfuyoen28642975 2.16.840.1.653013.3.579.2.253831-38-3590Jcgdand66655105 2.16.840.1.353230.3.579.2.306179-05-5529Uazcgjh95340012 2.16.840.1.937074.3.579.2.922822-10-8333Jvmiyil60525892 2.16.840.1.211581.3.579.2.878389-36-1182Rwlcngj73649077 2.16.840.1.771908.3.579.2.541568-49-9948Kokorlz248698613 2.16.840.1.016511.3.579.2.168735-34-6163Phzozbs28216786 2.16.840.1.614187.3.579.2.810624-85-4670Twbxnbp64662199 2.840.1.688979.3.579.2.383515-53-0852Kfcbgff76816371 2.840.1.959641.3.579.2.963914-70-5261Mfzuyyv97155498 2.840.1.287862.3.579.2.335124-44-5128Mckakuu06699592 2.840.1.437797.3.579.2.34639-56-8862Dxskuti86748165 2..1.570775.3.579.2.61993-06-4141Fnbbrcv68437894 2.0.1.099724.3.579.2.71780-67-7148Uxyljqs64792891 2.0.1.682490.3.579.2.92419-58-2470Oxccljt82455520766 2.840.1.138100.19 Cfwxink13040513 2.840.1.953164.3.579.2.400Dgepvtp17100455 2.840.1.843423.3.579.2.206Lavqrbw02872599 2.840.1.475709.3.579.2.531 Xvoxgnm81918575 2.840.1.160554.3.579.2.944Nvzxjwv70580890 2.840.1.699787.3.579.2.421Thlqarq97665983 2.840.1.735678.3.579.2.531 Bxgoegw10148057 2.840.1.074222.3.579.2.635Tjkrber65922777 2.840.1.003956.3.579.2.531 Social History DateTypeDetailFacilityStart: 08-08-2023 End: 58-32-1556Jswvguyh useCaffeine useNosoutheast missouri hospital Housing.com Other Comment on above:2 cups coffee, 4-6 cups tea daily, occaional soda;qauit 07/2020;Start: 08-08-2023 End: 13-41-4027Bqs [facility]igned At [facility]: 07-14-2020 End: 00-84-1672Phzpbko smoking status NHISSmoker (finding)[facility]: 92-93-5271Jhb Assigned At [facility]art: 11-23-2022 End: 97-87-8075Waklidu smoking statusHeavy tobacco smoker (finding)[facility]: 37-89-3410Kvqssks smoking statusNeverExecutive Urology of [facility] HospitalyStart: 91-86-7726Oqntxgf smoking status NHISEx-smokerMercy Memorial Hospital Start: 10-05-1981 End: 80-28-1281Vturkwt of tobacco useCigarette SmokerSalem Regional Medical Center [facility] Start: 10-24-2023 End: 41-87-1875Qaaufnb use and exposureSmokeless tobacco non-userUnUniversity Hospitals [facility] Work Phone: Start: 10-24-2023 End: 84-43-0460Xvrnuustv beverage intakeLifetime non-drinker (finding)[facility] Work Phone: Start: 78-38-8700Bcb assigned at birthNot on file Scour Preventiontart: 10-14-2023 End: 69-23-8845Zmfgcjgv to SARS-CoV-2 (event)Not sureMercy Memorial HospitalStart: 20-48-4063Vjmjhlk smoking status NHISUnknown if ever smoked [facility]ertart: 01-06-2015 End: 63-98-8126NthUhjl (finding)[facility] Centertart: 10-05-1981 End: 25-96-8968Zenjkqz smoking status NHISSmokes tobacco dailyProSt. Francis HospitalPopJam Health SystemStart: 11-10-2023 End: 38-31-2278Mcascotzl beverage intakeEx-drinker (finding)ProMhill crest behavioral health servicesAbove All Software SystemHas the electric, gas, oil, or water company threatened to shut off services in your home in past 12MoNoProMedica Health SystemHow often to you have a drink containing alcohol?2-4 times a monthProMedica Health SystemHow many standard drinks containing alcohol do you have on a typical day?1 or 2ProMedica Health SystemHow often do you have 6 or more drinks on 1 occasion?NeverProHale County Hospital IN-PIPE TECHNOLOGY SystemStart: 90-38-7214OJAJ Follow upSDOH Follow upSt. [facility] Of God [facility] Work Phone: Sexual OrientationExecutive Urology of [facility]c Health Medical Equipment Procedure CodeEquipment CodeEquipment Original TextEquipment IdentifierDates Aortogram, abdominal, with bilateral lower extremity runoffIR STENT SMART 10 X 80 120 CMFDAStart: 73-10-5586Iiidrcytq, abdominal, with bilateral lower extremity runoffIR STENT SMART 10 X 80 120 CMFDAStart: 17-39-0213Anfzwnxuk, abdominal, with bilateral lower extremity runoffIR STENT SMART 10 X 80 120 CMFDA Start: 02-89-6564Brwjvfnle, abdominal, with bilateral lower extremity runoffIR STENT SMART 10 X 80 120 CMFDAStart: 38-74-0429Mpstkcdrc, abdominal, with bilateral lower extremity runoffIR STENT SMART 10 X 80 120 CMFDAStart: 15-56-2582Qoezvltsj, abdominal, with bilateral lower extremity runoffIR STENT SMART 10 X 80 120 CMFDAStart: 38-53-0176Itoycknyr, abdominal, with bilateral lower extremity runoffIR STENT SMART 10 X 80 120 CMFDAStart: 09-27-2018 Aortogram, abdominal, with bilateral lower extremity runoffIR STENT SMART 10 X 80 120 CMFDAStart: 69-68-1458Ifegkncay, abdominal, with bilateral lower extremity runoffFDAStart: 11-74-7904Akgczrdls, abdominal, with bilateral lower extremity runoffFDAStart: 23-34-8539Iapiivkqg, abdominal, with bilateral lower extremity runoffFDAStart: 86-69-0581Nxtdcaeoq, abdominal, with bilateral lower extremity runoffIR STENT SMART 10 X 80 120 CMFDAStart: 66-76-5921Xceofuyio, abdominal, with bilateral lower extremity runoffIR STENT SMART 10 X 80 120 CMFDA Start: 14-33-4969Jmimpizlp, abdominal, with bilateral lower extremity runoffIR STENT SMART 10 X 80 120 CMFDAStart: 24-76-5775Nmyntjlwo, abdominal, with bilateral lower extremity runoffIR STENT SMART 10 X 80 120 CMFDAStart: 41-23-1270Lzgveqgee, abdominal, with bilateral lower extremity runoffIR STENT SMART 10 X 80 120 CMFDAStart: 89-54-6019Qmvkdlrky, abdominal, with bilateral lower extremity runoffIR STENT SMART 10 X 80 120 CMFDAStart: 09-27-2018 Aortogram, abdominal, with bilateral lower extremity runoffIR STENT SMART 10 X 80 120 CMFDAStart: 97-68-2112Nbxttrvit, abdominal, with bilateral lower extremity runoffIR STENT SMART 10 X 80 120 CMFDAStart: 52-81-0819Jnscjjxba, abdominal, with bilateral lower extremity runoffIR STENT SMART 10 X 80 120 CMFDA Start: 44-68-2708Otfbgcouk, abdominal, with bilateral lower extremity runoffIR STENT SMART 10 X 80 120 CMFDAStart: 73-54-5864Iqxgitotj, abdominal, with bilateral lower extremity runoffFDAStart: 65-81-0029Ufqzvrams, abdominal, with bilateral lower extremity runoffFDAStart: 72-75-6371Smlcl: 12-16-2013 ()[id number] FDAStart: 12-35-1340Irfimsr Syringe,Safety Needle 1 mL 30 gauge x 1/2 syringeStart: 57-78-0410Axc Needle, Diabetic (Comfort Ez Pen Brackney) 32 gauge x 5/32 needleStart: 04-15-2024 Insulin Syringe,Safety Needle 1 mL 30 gauge x 1/2 syringeStart: 98-16-2581Cud Needle, Diabetic (Comfort Ez Pen Brackney) 32 gauge x 5/32 needleStart: 95-35-6045MPD Angiogram Unknown 01/08/24 Non Biological Left Femoral Artery/Vein FDAStart: 98-15-0351FFI Angiogram Unknown 01/08/24 Non Biological Left Femoral Artery/VeinFDAStart: 47-84-6837JJA Angiogram Unknown 01/08/24 Non Biological Left Femoral Artery/VeinFDAStart: 24-04-3901Tpzpc Vsc 50cm 6mm [place] Thnwl Hep Propaten Ptfe Rem Rng - [id number] - [id number]_xptIixvt: 11-08-2023 Comment on above:Description: RIGHT FEMORAL ARTERYStent Vsc Epic 10mm 100mm 120cm 6fr Rdpq Otw Slf Xpd - [id number] ()[id number], 654145[facility] FDAStart: 45-50-3569LTP Angiogram Unknown 01/08/24 Non Biological Left Femoral Artery/VeinFDAStart: 12-63-2163Bdwuxgs Syringe,Safety Needle 1 mL 30 gauge x 1/2 syringeStart: 22-87-0457Eqx Needle, Diabetic (Comfort Ez Pen Brackney) 32 gauge x 5/32 needle Start: 71-79-6372Lxqptfb Syringe,Safety Needle 1 mL 30 gauge x 1/2 syringe Start: 51-30-8481Ita Needle, Diabetic (Comfort Ez Pen Brackney) 32 gauge x 5/32 needleStart: 83-51-5067Pncbdnf Syringe,Safety Needle 1 mL 30 gauge x 1/2 syringeStart: 28-81-1392Dej Needle, Diabetic (Comfort Ez Pen Brackney) 32 gauge x 5/32 needleStart: 72-33-6194Uyrlszv Syringe,Safety Needle 1 mL 30 gauge x 1/2 syringeStart: 77-99-5567Esi Needle, Diabetic (Comfort Ez Pen Brackney) 32 gauge x 5/32 needleStart: 06-13-5096Oovphsf Syringe,Safety Needle 1 mL 30 gauge x 1/2 syringeStart: 09-49-2703Mal Needle, Diabetic (Comfort Ez Pen Brackney) 32 gauge x 5/32 needleStart: 24-54-2804Tmmvkgr Syringe,Safety Needle 1 mL 30 gauge x 1/2 syringeStart: 94-94-2279Zzc Needle, Diabetic (Comfort Ez Pen Brackney) 32 gauge x 5/32 needleStart: 67-62-1224Wwcssny Syringe,Safety Needle 1 mL 30 gauge x 1/2 syringeStart: 18-77-6143Zty Needle, Diabetic (Comfort Ez Pen Brackney) 32 gauge x 5/32 needleStart: 86-38-9069IOK Angiogram Unknown 01/08/24 Non Biological Left Femoral Artery/VeinFDAStart: 01-08-2024 Goals DatePatient GoalDesired Activity/StatePersonal health goalComment on above: Evaluation of progress towards goal: Patient is planning to transition back to SNF at discharge. Functional Status YbdvRnbutbruzmRprhlgInaaxvvv49-43-5335Ntcrbuulby statusPatient at Baseline [facility] Work Phone: [phone]br statusPatient at Baseline [facility] Work Phone: [phone]gcx statusPatient at Baseline [facility] Work Phone: [phone]lglstkn StatusN/AExec[facility] of [facility]12-23-2024Functional StatusN/AExec[facility]10-09-2024Functional status Patient at [facility]St[facility] Work Phone: [phone]me statusPatient at Baseline [facility] Work Phone: [phone]mt StatusNoKettering Health [facility]05-20-2024Functional StatusMercy Health [facility]12-29-2023 Functional StatusN/A[facility] 59-39-9583Npiegikybp StatusN/AFThe [facility]08-28-2023Functional StatusN/A[facility]06-21-2023 Functional StatusN/AExec[facility] of [facility] Mental Status DxmpHruplxxtguEdwsyxNyaalube63-83-7354Jbcdaaamz functionPatient at Baseline [facility] Work Phone: [phone]ghe functionCognitive Status Patient at BaselineSt[facility] Work Phone: [phone] functionPatient at Baseline [facility] Work Phone: [phone]q functionPatient at Baseline [facility] Work Phone: [phone] functionPatient at Baseline [facility] Work Phone: Clinical Notes 06-23-2021 to 03-13-2025 Note Date & RpsiOumjWnsiedkp25-69-8564 Miscellaneous Notes* Telephone Encounter - Jess Aguilar CMA - 03/13/2025 1:10 PM EDT Lm for patient to call and get his testing done so that we do not have to cancel his appt on the 30. documented in this encounterCinc[facility]10-09-2025 Telephone encounter Note* Telephone Encounter - Jess Aguilar CMA - 03/13/2025 1:10 PM EDT Lm for patient to call and get his testing done so that we do not have to cancel his appt on the 30th. [facility]09-26-2025 Evaluation + Plan note* Assessment & Plan Note - Mike Montes MD - 02/28/2025 5:59 PM EDTAssociated Problem(s): Cigarette smoker Counseled him on smoking cessation for at least 4 minutes [facility]09-26-2025 Miscellaneous Notes* Assessment & Plan Note - [...] and Plavix 75 mg. 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 [facility]09-25-2025 History of Present illness Narrative* Mike Montes [...] Critical limb ischemia of right lower extremity ([facility]) Diabetes mellitus type 2, controlled ([facility]) GERD (gastroesophageal reflux disease) Hyperlipidemia Hypertension Past Surgical History: Past Surgical History: Procedure Laterality Date AMPUTATION FOOT / TOE Right 09/29/2023 APPENDECTOMY BYPASS ARTERY FEMORAL POPLITEAL Right 11/08/2023 Performed by Mike Montes MD at [facility] SPECIAL PROC CARDIAC CATHETERIZATION x4 heart stents COLONOSCOPY PROSTATE SURGERY SPINE SURGERY Vascular Invasive Right lower extremity angiogram with intervention/stent Right 11/07/2023 Performed by Mike Montes MD at [facility] CARDIAC CATH LABS Social and Family History: [...] Mike Montes MD, BG, RPVI, FSVS, FACS [facility] This note was created with the assistance of a speech recognition program. While intending to generate a timely document that accurately reflects the content of the visit, no guarantee can be provided that every grammatical or spelling mistake has been or will be identified or corrected. Thank you for your understanding. documented in this encounterGifford Medical CenterT-System09-25-2025 Instructions* Patient Instructions* Mike Montes MD - 02/27/2025 10:50 AM EDT Are You Ready To Kick The Habit? Free Tobacco Cessation Resources [facility] Services [facility] Tobacco Treatment Centers provide all employees with free tobacco cessation services that include: Counseling to understand nicotine addiction Education about medications that can help you successfully quit Assistance with developing a plan to quit Call to set up an individual appointment or find out when group classes will be held: [facility]: [phone] [facility]: [phone] [facility]: [phone] [facility]: [phone] Quit Smoking Action Plan and Resources [facility] offers an eight-week, online smoking cessation plan to all [facility] employees, regardless of whether [place] is your medical insurance provider. Go to [email or web address]/[email or web address] and click the Health Risk Assessment and Resources link to get started. In the [employer] menu, click Action Plans instead of Health Risk Assessment to access the Quit Smoking Action Plan. Additional smoking cessation resources are also available to all [facility] employees on the [employer] web page at www.[employer]/quitsmoking. [place] Tobacco Cessation Program If [place] is your medical insurance provider, there are more free resources available to you, including: No copays or deductibles on local tobacco cessation counseling services to help you quit Prescription assistance for tobacco cessation medications to help you quit For details about the tobacco cessation program available to [place] members, go to www.[employer] (Search: Tobacco Cessation Program). [place] Tobacco Quit Line 2-744-SJRU-NOW ( ) is a toll-free, telephonic service that helps [place] residents quit smoking and using tobacco. It is staffed by experts who tailor a quit plan for you and provide you with advice. [place] Tobacco Quit Line 2-354-PIPL-NOW ( ) is a toll-free, telephonic service [...] and resources to help you quit tobacco: [place] [employer]--www.cancer.org/healthy/stayawayfromtobacco [place] Heart Association--www.heart.org (Search: Quit Smoking) Centers for Disease Control and Prevention--www.cdc.gov/tobacco [place] Lung Association--www.lungusa.org documented in this encounterCincinnati [facility]'s [facility]07-31-2025 Miscellaneous Notes* Telephone Encounter - Baylee Chu CMA - 01/02/2025 10:59 AM EDT LVM to see if patient can head over now for his appointment documented in this encounterCincinnati Children's Hospital [facility] Center07-31-2025 Telephone encounter Note* Telephone Encounter - Baylee Chu CMA - 01/02/2025 10:59 AM EDT LVM to see if patient can head over now for his appointment [facility]06-03-2025 Hospital Discharge instructionsAmbulatory Orders* Referral to Diabetes Management Time Frame: 11/05/24, Location: None [facility] Work Phone: 1([phone]) 322-261005-08-2025 Consult note Author Pascale Arnold [facility]S Medical CenterNote Date/TimeMay 2024 9:56[place] [address] Cardiology Consult Note Signed Patient: Myra Pickard SR MR#: [id number] : 1965 Acct:[id number] Age/Sex: 59 / M Adm Date: 5 Loc: Room: [address] [place] [address] Type: ADM INOo Attending Dr: Abdullahi Canchola [...] post right below-knee amputation February 2024 in [place]. He has COPD followed by pulmonary medicine in [place]. 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 Other review of system was unremarkable [facility] Medical History Hypokalemia Hypocalcemia Hypomagnesemia Vitamin [...] mass Atrial fibrillation Atherosclerotic heart disease of [place] coronary artery with unspecified angina pectoris Anxiety Hx of exercise stress test Family history of premature CAD Reports mother had quadruple bypass at age of 45 Myocardial infarction mild Fibromyalgia Chronic back pain Sleep apnea Neuropathy Cataract Peripheral artery disease Hyperlipidemia Diabetes Hypertension Surgical History History of below-knee amputation of right lower extremity 02/2024 [facility] by Dr. Simon Hernández Vascular History of [...] 07/12/23[History Confirmed 10/10/24] flash glucose scanning reader (OnavoStyle Jigar 2 [place]) #1 ea 12/28/23 [Rx Confirmed 10/10/24] flash [...] 32 gauge x 5/32 (Comfort EZ Pen Brackney) #100 ea 04/15/24 [Rx Confirmed 10/10/24] hydroxyzine [...] Lymph # (Auto) 2.0 2.0 (1.00-4.8) x10E3/uL [place] # (Auto) 0.8 0.9 H (0.0-0.8) x10E3/uL [...] RCA, nuclear stress test February 2024 in [place] was normal Plan: Continue aggressive risk factors modifications, tobacco cessation, dual antiplatelet therapy, high intensity statin Code(s): I25.10 - Atherosclerotic heart disease of [place] coronary artery without angina pectoris Documented By: Pascale Arnold MD, [facility] 5 0982 Signed By: <Electronically signed by MD JOHNATHAN Arnold> 10/11/[address] [facility] Work Phone: 1(384) 803-366604-25-2025 NotePatient Education Urology Acute Urinary Retention, Male [...] these instructions at home: Medicines ??? Take dnqx-eka-croytcu and prescription medicines only as told by [...] provider. Document Revised: 02/10/2021 Document Reviewed: 02/10/2021 Else[employer]ical Patient Education ? 2023 [employer].[facility] 08-30-2024 Hospital Discharge instructionsAmbulatory Orders* Referral to Pain Management Time Frame: 08/30/24, Location: None [facility] Work Phone: 1(954) 205-188603-11-2025 [place] [address] Discharge Summary Signed Patient: Myra Pickard SR MR#: [id number] : 1965 Acct:[id number] Age/Sex: 59 / M Adm Date: 5 Loc: Room: [address] [place] [address]: Kevon Viera MD Copies to: [...] (DME) pen needle, diabetic [Comfort EZ Pen Brackney] 32 gauge x 5/32 needle See Rx [...] Instructions: As directed (DME) FreeStyle Jigar 2 [place] Misc See Rx Instructions .Route Qty: 1 [...] MD 08/13/24 14 35 Signed By: 08/13/[address] [place], [place] [id number] Progress note Author [facility] CenterNote Date/TimeMarch 2024 11:06[place] [address] Nephrology Progress Note Signed Patient: Myra Pickard MR#: [id number] : 1965 Acct:[id number] Age/Sex: 59 / M Adm Date: 5 Loc: Room: [address] [place] [address] Type: ADM IN Attending Dr: Kevon Viera [...] Skin: No rashes , warm to touch NET DEVELOPER: Awake,Alert, 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 Musculoskeletal: No swelling [...] 5,000 Unit/Ml Vial) 5,000 unit SUBCUT Q12HR [facility] Stop: 08/11/25 08:59 Last Admin: 08/13/24 08:25 Dose: 5,000 unit Hydralazine HCl (Hydralazine 20 Mg/Ml Vial) 10 mg IV-PUSH Q4H PRN PRN Reason: if SBP > 185 Stop: 08/11/25 05:38 Ferric Sodium Gluconate Complex 250 mg/ Sodium Chloride 270 mls @ 135 mls/hr IVQAM [facility] Stop: 08/14/24 10:59 Last Admin: 08/12/24 09:19 Dose: 135 mls/hr Insulin Aspart (Insulin Aspart 300 Units/3 Ml) 0 units SUBCUT TID[facility]; Protocol Stop: 08/11/25 07:59 Last Admin: 08/13/24 08:25 Dose: 1 units Ipratropium Channahon (Ipratropium Channahon 0.5 Mg/2.5 Ml Vial.Neb) 0.5 mg INHALATION QID.RESP [facility] Stop: 08/11/25 07:59 Last Admin: 08/13/24 07:54 Dose: 0.5 mg Isosorbide Mononitrate (Isosorbide Mononitrate 24hr Er 30 Mg Tab.Er.24h) 30 mg PO DAILY [facility] Stop: 08/11/25 08:59 Last Admin: 08/13/24 08:25 Dose: 30 mg Metoprolol Tartrate (Metoprolol Tartrate 100 Mg Tablet) 100 mg PO BID [facility] Stop: 08/11/25 08:59 Last Admin: 08/13/24 08:25 Dose: 100 mg Pantoprazole Sodium (Pantoprazole 40 Mg Tablet.Dr) 40 mg PO BID [facility] Stop: 08/11/25 08:59 Last Admin: 08/13/24 08:25 Dose: 40 mg Pregabalin (Pregabalin 75 Mg Capsule) 75 mg PO TID [facility] Stop: 02/07/25 08:59 Last Admin: 08/13/24 08:25 [...] weeks Documented By: Maurice Francis MD 08/13/24 0849 Signed By: <Electronically signed by Maurice Francis MD> 08/13/[address] [facility] Work Phone: 1(630) 614-473603-11-2025 [place] [address] Nephrology Progress Note Signed Patient: Myra Pickard SR MR#: [id number] : 1965 Acct:[id number] Age/Sex: 59 / M Adm Date: 5 Loc: Room: [address] [place] [address] Type: ADM IN Attending Dr: Kevon Viera [...] Skin: No rashes , warm to touch NET DEVELOPER: Awake,Alert, 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 Musculoskeletal: No swelling [...] Mg/200 Unit Tablet) 2 tab PO TID.WITH.MEALS [facility] Stop: 08/11/25 07:59 Last Admin: 08/13/24 08:25 [...] Chloride 270 mls @ 135 mls/hr IVQAM [facility] Stop: 08/14/24 10:59 Last Admin: 08/12/24 09:19 Dose: 135 mls/hr Insulin Aspart (Insulin Aspart 300 Units/3 Ml) 0 units SUBCUT TID.WM.HS [facility]; Protocol Stop: 08/11/25 07:59 Last Admin: 08/13/24 08:25 Dose: 1 units Ipratropium Channahon (Ipratropium Channahon 0.5 Mg/2.5 Ml Vial.Neb) 0.5 mg INHALATION QID.RESP [facility] Stop: 08/11/25 07:59 Last Admin: 08/13/24 07:54 Dose: 0.5 mg Isosorbide Mononitrate (Isosorbide Mononitrate 24hr Er 30 Mg Tab.Er.24h) 30 mg PO DAILY [facility] Stop: 08/11/25 08:59 Last Admin: 08/13/24 08:25 Dose: 30 mg Metoprolol Tartrate (Metoprolol Tartrate 100 Mg Tablet) 100 mg PO BID [facility] Stop: 08/11/25 08:59 Last Admin: 08/13/24 08:25 Dose: 100 mg Pantoprazole Sodium (Pantoprazole 40 Mg Tablet.Dr) 40 mg PO BID [facility] Stop: 08/11/25 08:59 Last Admin: 08/13/24 08:25 Dose: 40 mg Pregabalin (Pregabalin 75 Mg Capsule) 75 mg PO TID [facility] Stop: 02/07/25 08:59 Last Admin: 08/13/24 08:25 Dose: 75 mg Ropinirole HCl (Ropinirole 1 Mg Tablet) 1 mg PO TID [facility] Stop: 08/11/25 08:59 Last Admin: 08/13/24 08:25 [...] MD 08/13/24 0855 Signed By: 08/13/[address] [facility]03-10-2025 Progress note Author Kevon Viera [facility] CenterNote Date/TimeMarch 2024 3:[place] [address] Hospitalist Progress Note Signed Patient: Myra Pickard SR MR#: [id number] : 1965 Acct:[id number] Age/Sex: 59 / M Adm Date: 5 Loc: 3T Room: [address] [place] [address] Type: ADM IN Attending Dr: Kevon Viera [...] 1 units TID.[facility] Administration Protocol Ipratropium Channahon 0.5 mg 08/11/24 08:00 08/12/24 12:31 Ipratropium Channahon 0.5 Mg/2.5 Ml Vial.Neb INHALATION 08/11/25 07:59 [...] Viera MD> 08/12/24 [facility] Work Phone: 1(103) 246-770703-10-2025 [place] [address] Hospitalist Progress Note Signed Patient: Myra Pickard SR MR#: [id number] : 1965 Acct:[id number] Age/Sex: 59 / M Adm Date: 5 Loc: Room: [address] [place] [address] Type: ADM IN Attending Dr: Kevon Viera [...] 1 units TID.[facility] Administration Protocol Ipratropium Channahon 0.5 mg 08/11/24 08:00 08/12/24 12:31 Ipratropium Channahon 0.5 Mg/2.5 Ml Vial.Neb INHALATION 08/11/25 07:59 [...] 08/12/24 15 12 Signed By: 08/12/[address] [facility]03-10-2025 Progress note Author Maurice Francis [facility] CenterNote Date/TimeMarch 2024 11:[address] [address] Nephrology Progress Note Signed Patient: Myra Pickard SR MR#: [id number] : 1965 Acct:[id number] Age/Sex: 59 / M Adm Date: 5 Loc: 3T Room: [address] [place] [address] Type: ADM IN Attending Dr: Kevon Viera [...] Skin: No rashes , warm to touch NET DEVELOPER: Awake,Alert, 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 Musculoskeletal: No swelling [...] 25 Mg Tablet) 25 mg PO HS [facility] Stop: 08/11/25 21:59 Last Admin: 08/11/24 21:17 Dose: 25 mg Aspirin (Aspirin 81 Mg Tablet.) 81 mg PO DAILY [facility] Stop: 08/11/25 08:59 Last Admin: 08/12/24 08:27 Dose: 81 mg Atorvastatin Calcium (Atorvastatin 80 Mg Tablet) 80 mg PO DAILY [facility] Stop: 08/11/25 08:59 Last Admin: 08/12/24 08:27 Dose: 80 mg Budesonide/Formoterol Fumarate (Budesonide/Formoterol 160-4.5 Mcg 60 Puff/6 Gm Hfa.Aer.Ad) 2 puff INHALATION BID [facility] Stop: 08/11/25 08:59 Last Admin: 08/12/24 08:52 Dose: 2 puff Calcium Carbonate (Calcium Carbonate/Vitamin D3 500 Mg/200 Unit Tablet) 2 tab PO TID.WITH.MEALS [facility] Stop: 08/11/25 07:59 Last Admin: 08/12/24 08:27 Dose: 2 tab Clopidogrel Bisulfate (Clopidogrel Bisulfate 75 Mg Tablet) 75 mg PO DAILY [facility] Stop: 08/11/25 08:59 Last Admin: 08/12/24 08:27 Dose: 75 mg Cyanocobalamin (Cyanocobalamin 1,000 Mcg/Ml Vial) 1,000 mcg IM DAILY [facility] Stop: 08/17/24 09:01 Last Admin: 08/12/24 08:27 [...] 5,000 Unit/Ml Vial) 5,000 unit SUBCUT Q12HR [facility] Stop: 08/11/25 08:59 Last Admin: 08/12/24 08:27 Dose: 5,000 unit Hydralazine HCl (Hydralazine 20 Mg/Ml Vial) 10 mg IV-PUSH Q4H PRN PRN Reason: if SBP > 185 Stop: 08/11/25 05:38 Potassium Chloride/Sodium Chloride (0.9 % Nacl-20 Meq Kcl) 1,000 mls @ 125 mls/hr IV .Q8H [facility] Stop: 08/11/25 07:14 Last Admin: 08/12/24 08:26 Dose: 125 mls/hr Ferric Sodium Gluconate Complex 250 mg/ Sodium Chloride 270 mls @ 135 mls/hr IVQAM [facility] Stop: 08/14/24 10:59 Last Admin: 08/12/24 09:19 Dose: 135 mls/hr Insulin Aspart (Insulin Aspart 300 Units/3 Ml) 0 units SUBCUT TID.WM.[facility]; Protocol Stop: 08/11/25 07:59 Last Admin: 08/12/24 08:27 Dose: Not Given Ipratropium Channahon (Ipratropium Channahon 0.5 Mg/2.5 Ml Vial.Neb) 0.5 mg INHALATION [...] a.m. Documented By: Maurice Francis MD 08/12/24 111 Signed By: <Electronically signed by Maurice Francis MD> 08/12/24 1141 [facility] Work Phone: 1(727) 128-916903-10-2025 [place] [address] Nephrology Progress Note Signed Patient: Myra Pickard SR MR#: [id number] : 1965 Acct:[id number] Age/Sex: 59 / M Adm Date: 5 Loc: Room: [address] [place] [address] Type: ADM IN Attending Dr: Kevon Viera [...] Skin: No rashes , warm to touch NET DEVELOPER: Awake,Alert, 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 Musculoskeletal: No swelling [...] 25 Mg Tablet) 25 mg PO HS [facility] Stop: 08/11/25 21:59 Last Admin: 08/11/24 21:17 Dose: 25 mg Aspirin (Aspirin 81 Mg Tablet.) 81 mg PO DAILY [facility] Stop: 08/11/25 08:59 Last Admin: 08/12/24 08:27 Dose: 81 mg Atorvastatin Calcium (Atorvastatin 80 Mg Tablet) 80 mg PO DAILY [facility] Stop: 08/11/25 08:59 Last Admin: 08/12/24 08:27 Dose: 80 mg Budesonide/Formoterol Fumarate (Budesonide/Formoterol 160-4.5 Mcg 60 Puff/6 Gm Hfa.Aer.Ad) 2 puff INHALATION BID [facility] Stop: 08/11/25 08:59 Last Admin: 08/12/24 08:52 Dose: 2 puff Calcium Carbonate (Calcium Carbonate/Vitamin D3 500 Mg/200 Unit Tablet) 2 tab PO TID.WITH.MEALS [facility] Stop: 08/11/25 07:59 Last Admin: 08/12/24 08:27 Dose: 2 tab Clopidogrel Bisulfate (Clopidogrel Bisulfate 75 Mg Tablet) 75 mg PO DAILY [facility] Stop: 08/11/25 08:59 Last Admin: 08/12/24 08:27 Dose: 75 mg Cyanocobalamin (Cyanocobalamin 1,000 Mcg/Ml Vial) 1,000 mcg IM DAILY [facility] Stop: 08/17/24 09:01 Last Admin: 08/12/24 08:27 [...] 5,000 Unit/Ml Vial) 5,000 unit SUBCUT Q12HR [facility] Stop: 08/11/25 08:59 Last Admin: 08/12/24 08:27 Dose: 5,000 unit Hydralazine HCl (Hydralazine 20 Mg/Ml Vial) 10 mg IV-PUSH Q4H PRN PRN Reason: if SBP > 185 Stop: 08/11/25 05:38 Potassium Chloride/Sodium Chloride (0.9 % Nacl-20 Meq Kcl) 1,000 mls @ 125 mls/hr IV .Q8H [facility] Stop: 08/11/25 07:14 Last Admin: 08/12/24 08:26 Dose: 125 mls/hr Ferric Sodium Gluconate Complex 250 mg/ Sodium Chloride 270 mls @ 135 mls/hr IVQAM [facility] Stop: 08/14/24 10:59 Last Admin: 08/12/24 09:19 Dose: 135 mls/hr Insulin Aspart (Insulin Aspart 300 Units/3 Ml) 0 units SUBCUT TID[facility]; Protocol Stop: 08/11/25 07:59 Last Admin: 08/12/24 08:27 Dose: Not Given Ipratropium Channahon (Ipratropium Channahon 0.5 Mg/2.5 Ml Vial.Neb) 0.5 mg INHALATION [...] MD 08/12/24 1115 Signed By: 08/12/[address] [facility]03-09-2025 Consult note Author Amina KinseyFayette County Memorial HospitalNote Date/TimeMarch 2024 2:[place] [address] Nephrology Consult Note Signed Patient: Myra Pickard SR MR#: [id number] : 1965 Acct:[id number] Age/Sex: 59 / M Adm Date: 5 Loc: Room: [address] [place] [address] Type: ADM IN Attending Dr: Kevon Viera [...] reviewed 12 system review is negative today [facility] Medical History Chronic obstructive pulmonary disease, [...] mass Atrial fibrillation Atherosclerotic heart disease of [place] coronary artery with unspecified angina pectoris Anxiety Hx of exercise stress test Family history of premature CAD Reports mother had quadruple bypass at age of 45 Myocardial infarction mild Fibromyalgia Chronic back pain Sleep apnea Neuropathy Cataract Peripheral artery disease Hyperlipidemia Diabetes Hypertension Surgical History History of below-knee amputation of right lower extremity 02/2024 [facility] by [place]. Simon Hernández Vascular History of [...] 07/12/23[History Confirmed 08/11/24] flash glucose scanning reader (OnavoStyle Jigar 2 [place]) #1 ea 12/28/23 [Rx Confirmed 08/11/24] flash [...] 32 gauge x 5/32 (Comfort EZ Pen Brackney) #100 ea 04/15/24 [Rx Confirmed 08/11/24] hydroxyzine [...] 25 Mg Tablet) 25 mg PO HS [facility] Stop: 08/11/25 21:59 Aspirin (Aspirin 81 Mg [...] 5,000 Unit/Ml Vial) 5,000 unit SUBCUT Q12HR [facility] Stop: 08/11/25 08:59 Last Admin: 08/11/24 09:14 [...] 1,000 mls @ 125 mls/hr IV .Q8H [facility] Stop: 08/11/25 07:14 Last Admin: 08/11/24 11:51 Dose: 125 mls/hr Insulin Aspart (Insulin Aspart 300 Units/3 Ml) 0 units SUBCUT TID[facility]; Protocol Stop: 08/11/25 07:59 Last Admin: 08/11/24 13:40 Dose: Not Given Ipratropium Channahon (Ipratropium Channahon 0.5 Mg/2.5 Ml Vial.Neb) 0.5 mg INHALATION QID.RESP [facility] Stop: 08/11/25 07:59 Last Admin: 08/11/24 13:00 Dose: 0.5 mg Isosorbide Mononitrate (Isosorbide Mononitrate 24hr Er 30 Mg Tab.Er.24h) 30 mg PO DAILY [facility] Stop: 08/11/25 08:59 Last Admin: 08/11/24 09:13 Dose: 30 mg Metoprolol Tartrate (Metoprolol Tartrate 100 Mg Tablet) 100 mg PO BID [facility] Stop: 08/11/25 08:59 Last Admin: 08/11/24 09:13 Dose: 100 mg Pantoprazole Sodium (Pantoprazole 40 Mg Tablet.Dr) 40 mg PO BID [facility] Stop: 08/11/25 08:59 Last Admin: 08/11/24 09:13 Dose: 40 mg Pregabalin (Pregabalin 75 Mg Capsule) 75 mg PO TID [facility] Stop: 02/07/25 08:59 Last Admin: 08/11/24 13:40 Dose: 75 mg Ropinirole HCl (Ropinirole 1 Mg Tablet) 1 mg PO TID [facility] Stop: 08/11/25 08:59 Last Admin: 08/11/24 13:40 Dose: 1 mg Tamsulosin HCl (Tamsulosin 0.4 Mg Cap.Er.24h) 0.4 mg PO BID [facility] Stop: 08/11/25 08:59 Last Admin: 08/11/24 09:13 Dose: 0.4 mg Tizanidine HCl (Tizanidine 4 Mg Tablet) 4 mg PO QHS [facility] Stop: 08/11/25 21:59 Exam Physical Exam Vital [...] Appearance Clear Urine pH 5.5 Ur Specific Mobile 1.024 Urine Protein Negative Urine Glucose (UA) 500 H Urine Ketones Negative Urine Occult Blood Negative Urine Nitrite Negative Ur Leukocyte Esterase Negative Radiology Impressions Impressions - last 24 hours: Impressions Chest X-Ray 08/11/24 04:22 IMPRESSION: No acute process. Impression dictated by: Sudeep Lind M.D.08/11/2024 10:06 AM Dictation Location: [place] [address] 08/11/24 04:22 IMPRESSION: No acute [...] Sudeep Lind M.D.08/11/2024 10:06 AM Dictation Location: [place] [address] Any impression(s) listed above is documentation that [...] signed by Amina Fagan MD> 08/11/[address] [facility] Work Phone: [phone]) [phone] Progress note Author Kevon Viera [facility] CenterNote Date/TimeMarch 2024 1:21[place] [address] Progress Note Signed Patient: Myra Pickard SR MR#: [id number] : 1965 Acct:[id number] Age/Sex: 59 / M Adm Date: 5 Loc: 3T Room: [address] [place] [address] Type: ADM IN Attending Dr: Kevon Viera [...] <Electronically signed by Kevon Viera MD> 08/11/24 1328 [facility] Work Phone: 1([phone]) [phone] Consult [place] [id number] Nephrology Consult Note Signed Patient: Myra Pickard SR MR#: [id number] : 1965 Acct:[id number] Age/Sex: 59 / M Adm Date: 5 Loc: Room: [address] [place] [address] Type: ADM IN Attending Dr: Kevon Viera [...] reviewed 12 system review is negative today [facility] Medical History Chronic obstructive pulmonary disease, [...] mass Atrial fibrillation Atherosclerotic heart disease of [place] coronary artery with unspecified angina pectoris Anxiety Hx of exercise stress test Family history of premature CAD Reports mother had quadruple bypass at age of 45 Myocardial infarction mild Fibromyalgia Chronic back pain Sleep apnea Neuropathy Cataract Peripheral artery disease Hyperlipidemia Diabetes Hypertension Surgical History History of below-knee amputation of right lower extremity 02/2024 [facility] by Dr. Simon Hernández Vascular History of [...] 07/12/23[History Confirmed 08/11/24] flash glucose scanning reader (GettingHiredyle Jigar 2 [place]) #1 ea 12/28/23 [Rx Confirmed 08/11/24] flash glucose sensor (OnavoStyle Jigar 2 Sensor kit) #1 ea 12/28/23 [...] 32 gauge x 5/32 (Comfort EZ Pen Brackney) #100 ea 04/15/24 [Rx Confirmed 08/11/24] hydroxyzine [...] 1,000 Mcg/Ml Vial) 1,000 mcg IM DAILY [facility] Stop: 08/17/24 09:01 Last Admin: 08/11/24 09:14 [...] 5,000 Unit/Ml Vial) 5,000 unit SUBCUT Q12HR [facility] Stop: 08/11/25 08:59 Last Admin: 08/11/24 09:14 [...] 1,000 mls @ 125 mls/hr IV .Q8H [facility] Stop: 08/11/25 07:14 Last Admin: 08/11/24 11:51 Dose: 125 mls/hr Insulin Aspart (Insulin Aspart 300 Units/3 Ml) 0 units SUBCUT TID.WM.[facility]; Protocol Stop: 08/11/25 07:59 Last Admin: 08/11/24 13:40 Dose: Not Given Ipratropium Channahon (Ipratropium Ch[place]on 0.5 Mg/2.5 Ml Vial.Neb) 0.5 mg INHALATION [...] 1 Mg Tablet) 1 mg PO TID [facility] Stop: 08/11/25 08:59 Last Admin: 08/11/24 13:40 Dose: 1 mg Tamsulosin HCl (Tamsulosin 0.4 Mg Cap.Er.24h) 0.4 mg PO BID [facility] Stop: 08/11/25 08:59 Last Admin: 08/11/24 09:13 Dose: 0.4 mg Tizanidine HCl (Tizanidine 4 Mg Tablet) 4 mg PO QHS [facility] Stop: 08/11/25 21:59 Exam Physical Exam Vital [...] Appearance Clear Urine pH 5.5 Ur Specific Mobile 1.024 Urine Protein Negative Urine Glucose (UA) 500 H Urine Ketones Negative Urine Occult Blood Negative Urine Nitrite Negative Ur Leukocyte Esterase Negative Radiology Impressions Impressions - last 24 hours: Impressions Chest X-Ray 08/11/24 04:22 IMPRESSION: No acute process. Impression dictated by: Sudeep Lind M.D.08/11/2024 10:06 AM Dictation Location: [place] [address] 08/11/24 04:22 IMPRESSION: No acute [...] Sudeep Lind M.D.08/11/2024 10:06 AM Dictation Location: [place] [address] Any impression(s) listed above is documentation that [...] Fagan MD 08/11/24 1405 Signed By: 08/11/[address] [place], [place] 0670603-09-2025 [place] [address] Progress Note Signed Patient: Myra Pickard MR#: [id number] : 1965 Acct:[id number] Age/Sex: 59 / M Adm Date: 5 Loc: Room: [address] [place] [address] Type: ADM IN Attending Dr: Kevon Viera [...] 08/11/24 13 20 Signed By: 08/11/[address] [facility]03-09-2025 Radiology Diagnostic study note [facility] Main [place] [address] [place] [address] CT Scan Report Signed Patient: Myra Pickard SR MR#: [id number] : 1965 Acct:[id number] Age/Sex: 59 / M ADM Date: 5 Loc: 3T Room: [address] [place] [address] Type: ADM IN Attending Dr: Kevon Viera MD Copies to: MD Francisco Urbina Jr, MD~ Ordering Provider: Francisco Duncan Jr, MD Date of Service: 08/11/24 CT/CT head stroke alert wo con: acute stroke/neuro deficits ([id number]) CT/CT angio neck: L side numb ([id number]) CT/CT angio head: L side numb Unenhanced [...] Sudeep Lind M.D.08/11/2024 10:06 AM Dictation Location: [place] [address] Transcribed By: [facility] 08/11/24 1006 Dictated By: Sudeep Lind DO 08/11/24 1000 Signed By: 08/11/[address] [facility]03-09-2025 History and physical note Author Marge Andino [facility] CenterNote Date/TimeMarch 2024 7:24[place] [address] Hospitalist H&P Signed Patient: Myra Pickard SR MR#: [id number] : 1965 Acct:[id number] Age/Sex: 59 / M Adm Date: 5 Loc: Room: [address] [place] [address] Type: ADM IN Attending Dr: Kevon Viera [...] neck without acute findings -official report pending [facility] Medical History Chronic obstructive pulmonary disease, [...] mass Atrial fibrillation Atherosclerotic heart disease of [place] coronary artery with unspecified angina pectoris Anxiety Hx of exercise stress test Family history of premature CAD Reports mother had quadruple bypass at age of 45 Myocardial infarction mild Fibromyalgia Chronic back pain Sleep apnea Neuropathy Cataract Peripheral artery disease Hyperlipidemia Diabetes Hypertension Surgical History History of below-knee amputation of right lower extremity 02/2024 [facility] by Dr. Simon Hernández Vascular History of [...] 07/12/23[History Confirmed 08/11/24] flash glucose scanning reader (OnavoStyle Jigar 2 [place]) #1 ea 12/28/23 [Rx Confirmed 08/11/24] flash [...] 32 gauge x 5/32 (Comfort EZ Pen Brackney) #100 ea 04/15/24 [Rx Confirmed 08/11/24] hydroxyzine [...] 04:15 Lymph % (Auto) N/A 08/11/24 04:15 [place] % (Auto) N/A 08/11/24 04:15 Eos % (Auto) N/A 08/11/24 04:15 Baso % (Auto) N/A 08/11/24 04:15 Nucleat RBC Rel Count N/A 08/11/24 04:15 Neut # (Auto) N/A 08/11/24 04:15 Lymph # (Auto) N/A 08/11/24 04:15 [place] # (Auto) N/A 08/11/24 04:15 Eos # [...] <Electronically signed by Marge Andino MD> 08/11/2424 [facility] Work Phone: 1(538) 630-442303-09-2025 Evaluation note* Diagnosis Onset Date Resolution Status Admit Date Acute kidney injury superimposed on CKD acuteMarch 2024 5:39amBPH loc w urin obs/LUTSacuteMarch 2024 5:39am DiabetesacuteMarch 2024 5:39amHypocalcemiaacuteMarch 2024 5:39am HypokalemiaacuteMarch 2024 5:39amHypomagnesemiaacuteMarch 2024 5:39am Iron deficiencyacuteMarch 2024 5:39amLeft sided numbnessacuteMarch 2024 5:39amParesthesiasacuteMarch 2024 5:39amVitamin B12 deficiencyacute August 11, 2024 5:39amHypertensionchronicMarch 2024 5:39am [facility] Work Phone: 1(369) 125-954703-09-2025 Evaluation note* Diagnosis Onset Date Resolution Status [...] 8:37am Non compliance w medication regimenacuteMar2024 8:37am [facility] Work Phone: 1([phone]) 428-153203-09-2025 Evaluation note* Diagnosis Onset Date Resolution Status Admit Date Hypocalcemia acuteMarch 2024 5:39amHypokalemiaacuteMarch 2024 5:39amHypomagnesemia acuteMarch 2024 5:39amAcute kidney injury superimposed on CKDinactiveMar 2024 5:39amBPH loc w urin obs/LUTSinactiveMarch 2024 5:39amDiabetes inactiveMarch 2024 5:39amHypertensioninactiveMarch 2024 5:39amIron deficiencyinactiveMarch 2024 5:39amLeft sided numbnessinactiveMar 2024 5:39amParesthesiasinactiveMar 2024 5:39amVitamin B12 deficiency inactiveSummit [facility]aks Hospitalch 2024 5:39amAnemia of renal diseaseacuteMarch 2024 8:37amChronic kidney disease, stage 3bacuteMar2024 8:37amDiabetic nephropathy associated with type 2 diabetes mellitusacuteMar2024 8:37am HypocalcemiaacuteMarch 2024 8:37amHypokalemiaacuteMarch 2024 8:37am HypomagnesemiaacuteMar2024 8:37amNeuropathyacuteMar2024 8:37am Non compliance w medication regimenacuteMarch 2024 8:37amChest painacute October 10, 2024 6:25pm [facility] Work Phone: 1([phone]) [phone] Evaluation note* Diagnosis Onset Date Resolution Status [...] 2024 6:25pmChest pain deletedOctober 10, 2024 6:25pm [facility] Work Phone: [phone]) 193-900403-09-2025 Evaluation note* Diagnosis Onset Date Resolution Status [...] 8:37amDiabetic nephropathy associated with type 2 diabetes mellitusacuteSummit Oaks Hospitalch 2024 8:37amHypocalcemia acuteUniversity [facility] 2024 8:37amHypokalemiaacuteSummit Oaks Hospitalch 2024 8:37am HypomagnesemiaacuteSummit Oaks Hospitalch 2024 8:37amNeuropathyacuteSummit Oaks Hospitalch 2024 8:37am Non compliance w medication regimenacuteMarch 2024 8:37amCAD (coronary artery disease)acuteNey 2024 6:25pmHistory of below-knee amputation of right lower extremityacuteMay 2024 6:25pmChronic kidney diseaseinactiveMay 2024 6:25pmChronic obstructive pulmonary disease, unspecifiedinactiveMay 2024 6:25pmHyperlipidemiainactiveMay 2024 6:25pmChest paindeletedMay 2024 6:25pmAnemia of renal diseaseacuteJune 2024 1:08pmCAD (coronary artery disease)acuteJune 2024 1:08pmCigarette nicotine dependence with nicotine-induced disorderacuteJun2024 1:08pmDiabetic nephropathy associated with type 2 diabetes mellitusacuteBlowing Rock Hospitale 2024 1:08pmHistory of below-knee amputation of right [...] w urin obs/LUTS inactiveNovember 05, 2024 4:13pm [facility] Work Phone: 1(321) 620-292703-09-2025 Evaluation note* Diagnosis Onset Date Resolution Status Admit Date Hypocalcemia acuteSummit [facility]aks Hospitalch 2024 5:39amHypokalemiaacuteMarch 2024 5:39amHypomagnesemia acuteMarch 2024 5:39amAcute [...] 2024 6:25pmChest paindeletedMay 2024 6:25pmAnemia of renal diseaseacuteBlowing Rock Hospitale 2024 1:08pmCAD (coronary artery disease)acuteBlowing Rock Hospitale 2024 1:08pmCigarette nicotine dependence with nicotine-induced disorderacuteBlowing Rock Hospitale 2024 1:08pmDiabetic nephropathy associated with type 2 diabetes mellitusacuteBlowing Rock Hospitale 2024 1:08pmHistory of below-knee amputation of right lower extremityacuteBlowing Rock Hospitale 2024 1:08pm HypocalcemiaacuteBlowing Rock Hospitale 2024 1:08pmVitamin D deficiencyacuteBlowing Rock Hospitale 2024 1:08pm [facility] Work Phone: 1([phone]) [phone] [place] [address] Hospitalist H&P Signed Patient: Myra Pickard SR MR#: [id number] : 1965 Acct:[id number] Age/Sex: 59 / M Adm Date: 5 Loc: Room: [address] [place] [address] Type: ADM IN Attending Dr: Kevon Viera [...] neck without acute findings -official report pending [facility] Medical History Chronic obstructive pulmonary disease, [...] mass Atrial fibrillation Atherosclerotic heart disease of [place] coronary artery with unspecified angina pectoris Anxiety Hx of exercise stress test Family history of premature CAD Reports mother had quadruple bypass at age of 45 Myocardial infarction mild Fibromyalgia Chronic back pain Sleep apnea Neuropathy Cataract Peripheral artery disease Hyperlipidemia Diabetes Hypertension Surgical History History of below-knee amputation of right lower extremity 02/2024 [facility] by Dr. Simon Hernnádez Vascular History of artificial lens replacement Hx [...] 07/12/23[History Confirmed 08/11/24] flash glucose scanning reader (OnavoStyle Jigar 2 [place]) #1 ea 12/28/23 [Rx Confirmed 08/11/24] flash [...] 32 gauge x 5/32 (Comfort EZ Pen Brackney) #100 ea 04/15/24 [Rx Confirmed 08/11/24] hydroxyzine [...] 04:15 Lymph % (Auto) N/A 08/11/24 04:15 Tipton % (Auto) N/A 08/11/24 04:15 Eos % (Auto) N/A 08/11/24 04:15 Baso % (Auto) N/A 08/11/24 04:15 Nucleat RBC Rel Count N/A 08/11/24 04:15 Neut # (Auto) N/A 08/11/24 04:15 Lymph # (Auto) N/A 08/11/24 04:15 Tipton # (Auto) N/A 08/11/24 04:15 Eos # [...] Marge Andino MD 08/11/2417 Signed By: 08/11/2424 [facility]03-04-2025 NotePatient Education Urology Orchitis Orchitis [...] by your health care provider. ??? Take azyi-ket-mdpndnw and prescription medicines only as told by [...] medicines to fight th (more content not included)...[facility]12-23-2024 Hospital Discharge instructions Patient Education 05/27/2024 [...] urethra. Follow these instructions at home: Take wxkc-jmw-vqaexat and prescription medicines only as told by [...] provider. Document Revised: 12/08/2021 Document Reviewed: 12/08/2021 [employer] Patient Education 2023 [employer]. Follow Up Care 04/01/2024 10:56:08 With:SOLEDAD HERRERA, Yeyo Blum, URL Address: [facility] [address], [place] [address]- [phone] When: Unknown [facility] 12-23-2024 NotePatient Education Urology Benign Prostatic [...] Follow these instructions at home: ??? Take njkd-oud-ydhlqih and prescription medicines only as told by [...] symptoms do not get (more content not included)...[facility]12-23-2024 Evaluation + Plan note Diagnostic Tests Pending * PSA Total 05/27/24 Future Scheduled Tests Radiology* US PVR Lower EXT Complete Bilat 11/20/23 [facility] 12-03-2024 Evaluation note* Diagnosis Onset Date Resolution Status Admit Date Anemia of renal disease acuteDecemb2023 4:21pmBMI 34.0-34.9,adultacuteDecember 2023 4:21pm BPH loc w urin obs/LUTSacutece2023 4:21pmChronic kidney disease, stage 3bacuteDecemb2023 4:21pmDiabetic nephropathy associated with type 2 diabetes mellitusacuteMay 07, 2024 4:21pmGoutacuteDecemb2023 4:21pmHypertensive nephropathyacutecemb2023 4:21pmHypomagnesemiaacute Juan 2023 4:21pm [facility] Work Phone: 1(682) 470-146711-19-2024 Procedure [place] [id number] EGD Procedure Note Signed Patient: Myra Pickard SR MR#: [id number] : 1965 Acct:[id number] Age/Sex: 58 / M Adm Date: 4 Loc: Room: Type: [facility] Attending Dr: Mike Burleson [...] MD 04/23/24 1350 Signed By: 04/23/[address] [facility]11-19-2024 History and physical [place] [id number] Gastroenterology H&P Signed Patient: Mrya Pickard SR MR#: [id number] : 1965 Acct:[id number] Age/Sex: 58 / M Adm Date: 4 Loc: Room: Type: [facility] Attending Dr: Mike Burleson [...] MD 04/23/24 1349 Signed By: 04/23/[address] [facility]11-01-2024 Evaluation note* Author Cat Byrd [facility]S Medical CenterAuthoredNovember 2023 1:29pmSooner if needed, the ER if concerns,The above note written by Cat Byrd LPN acting as human recorder, note dictated by Dr. Teresa Lynch [facility] Work Phone: 1(724) 426-944510-18-2024 Miscellaneous Notes* Telephone Encounter - Moncho Stevenson - 03/22/2024 11:24 PM EDT Contract: 198 - Re: high Blood Sugars . Called Dr. Tam and connected to caller documented in this encounterCinc[facility]10-18-2024 Telephone encounter Note* Telephone Encounter - Moncho Stevenson - 03/22/2024 11:24 PM EDT Contract: 198 - Re: high Blood Sugars . Called Dr. Tam and connected to caller [facility] [id number] History of Present illness Narrative* Guero Tam, - 03/19/2024 5:25 PM EDT Patient Name: Myra Pickard Date of : 1965 Date of Service: 03/19/2024 Facility: [facility] Type of Visit: Skilled Visit Subjective Myra [...] polyneuropathy associated with type 2 diabetes mellitus ([facility]) 2. Encounter for orthopedic aftercare following surgical [...] BY: Guero Tam DO documented in this encounterCincinnati Children's [facility] Center10-11-2024 History of Present illness Narrative* Guero Tam, DO - 03/15/2024 6:27 PM EDT Patient Name: Myra Pickard Date of : 1965 Date of Service: 03/15/2024 Facility: [facility] Type of Visit: Admission H&P Subjective Myra Pickard is a 58 y.o. male seen today at [facility] facility for admission for therapies. Myra returns to [facility] from [facility] where he was admitted for altered [...] polyneuropathy associated with type 2 diabetes mellitus ([facility]) 2. Disorientation 3. Other abnormalities of gait and mobility 4. Status post partial amputation of right foot ([facility]) 5. Atherosclerosis of [place] coronary artery of [place] heart without angina pectoris 6. Atrial fibrillation ([facility]) 7. Primary hypertension Admit to PSYCHIAT[facility]IC for therapies. Plan to do therapy and then go home in a few weeks. Continue current regimen. Full code. Good rehab potential. ELECTRONICALLY SIGNED BY: Guero Tam DO documented in this encounterUniversity Hospitals Health SystemCargomatic [id number] Miscellaneous Notes* Telephone Encounter - Nancy Kim CMA - 03/15/2024 10:10 AM EDT Patients spouse called in to question about getting a aeronautical inspector sock. Stated patient is currently isin a care facility. Please advise and call spouse. documented in this encounterCincinnati [facility]'s [facility] Center10-11-2024 Telephone encounter Note* Telephone Encounter - Nancy Kim CMA - 03/15/2024 10:10 AM EDT Patients spouse called in to question about getting a aeronautical inspector sock. Stated patient is currently [facility] facility. Please advise and call spouse. [facility]10-09-2024 Discharge summary Author Remberto Ervin [facility] March 13, 2024 9:46amNote Date/TimeOct2023 9:46[place] [address] Discharge Summary Signed Patient: Myra Pickard SR MR#: [id number] : 1965 Acct:[id number] Age/Sex: 58 / M Adm Date: 4 Loc: Room: [address] [place] [address]: Remberto Ervin MD Copies to: [...] colleague in collaboration with other specialists and lab support tech. Patient came in with a change in [...] ask her primary care doctor to obtain [facility] record entirely to address abnormalities seen on labs and imagingthat I have and have not addressed during this hospitalization, follow-up on pending blood work, imaging and pathology is if available and to follow-up on needed medical care in the outpatient setting. Time Spent with Patient Time spent providing/coordinating discharge services (# min): 45 Discharge Plan Discharge Plan Patient Disposition: Long-Term Facility Activity: No Activity Restriction Additional Instructions: I may not have addressed or treated all of your medical illnesses or the abnormal blood work or imaging studies during this hospitalization. Please ask your primary care provider to obtain [facility] records entirely to follow up on all of the abnormal physical, laboratory, and imaging findings thatI have not addressed. Please return back to the emergency room or seek medical attention if your symptoms worsen or return. Discharging you from [facility] does not mean that your medical [...] Instructions: As directed (DME) FreeStyle Jigar 2 [place] Misc See Rx Instructions .ROUTE Qty: 1 [...] 16:02 Blood Culture Stat 03/10/24 06:49 NMDA [I-zsdlmb-K-Aspartate IgG, Ser] IN AM Preliminary micro results [...] % (Auto) 66.7, Lymph % (Auto) 14.7, Tipton % (Auto) 14.4, Eos % (Auto) 3.0, Baso % (Auto) 1.2, Nucleat RBC Rel Count 0.1, Neut #(Auto) 4.0, Lymph # (Auto) 0.9 L, Tipton # (Auto) 0.9 H, Eos # (Auto) [...] signed by Remberto Ervin MD> 03/13/24 0946 [facility] Work Phone: 1(411) 508-541410-08-2024 Progress note Author João Powell [facility] March 12, 2024 1:46pmNote Date/TimeOct2023 1:34pm[place] [address] Hospitalist Progress Note Signed Patient: Myra Pickard MR#: [id number] : 1965 Acct:[id number] Age/Sex: 58 / M Adm Date: 4 Loc: Room: [address] [place] [address] Type: ADM IN Attending Dr: João Powell [...] 2 units TID.WM.HS SATISH Administration Protocol Ipratropium [place] 0.5 mg 03/08/24 20:00 03/12/24 09:34 Ipratropium [place] 0.5 Mg/2.5 Ml Vial.Neb INHALATION 03/08/25 19:59 [...] signed by João Powell MD> 03/12/[address] [facility] Work Phone: 1(244) 837-332910-08-2024 Progress note Author Mike Burleson [facility] March 12, 2024 9:28amNote Date/TimeOct2023 9:28[place] [address] Gastroenterology PN Signed Patient: Myra Pickard SR MR#: [id number] : 1965 Acct:[id number] Age/Sex: 58 / M Adm Date: 4 Loc: Room: [address] [place] [address] Type: ADM IN Attending Dr: João Powell [...] 1 units TID.WM.HS SATISH Administration Protocol Ipratropium [place] 0.5 mg 03/08/24 20:00 03/12/24 06:05 Ipratropium [place] 0.5 Mg/2.5 Ml Vial.Neb INHALATION 03/08/25 19:59 [...] <Electronically signed by Mike Burleson MD> 03/12/24927 [facility] Work Phone: 1(656) 439-903210-07-2024 Progress note Author João Powell [facility] March 11, 2024 1:38pmNote Date/TimeOct2023 1:35[place] [address] Hospitalist Progress Note Signed Patient: Myra Pickard MR#: [id number] : 1965 Acct:[id number] Age/Sex: 58 / M Adm Date: 4 Loc: 3T Room: [address] [place] [address] Type: ADM IN Attending Dr: João Powell [...] 11:59 Not Given TID.WM.HS SATISH Protocol Ipratropium [place] 0.5 mg 03/08/24 20:00 03/11/24 10:15 Ipratropium [place] 0.5 Mg/2.5 Ml Vial.Neb INHALATION 03/08/25 19:59 [...] 45 Documented By: João Powell MD 03/11/24 3114 Signed By: <Electronically signed by João Powell MD> 03/11/24 7648 [facility] Work Phone: 1(742) 870-879110-06-2024 Progress note Author Luther Dozier [facility] March 10, 2024 11:31amNote Date/TimeOct2023 11:[address]am[address] [address] Neurology Progress Note Signed Patient: Myra Pickard SR MR#: [id number] : 1965 Acct:[id number] Age/Sex: 58 / M Adm Date: 4 Loc: Room: [address] [address] Type: ADM IN Attending Dr: João Powell [...] Therapy Recommendations: PT Recommendations PT Recommended Discharge Long-Term Facility,Inpatient Rehab Unit Location PT Recommended Services [...] of breathing. He is alert. Oriented to [facility], March. Speech is fluent and [...] signed by Luther Dozier DO> 03/10/[address] [facility] Work Phone: 1([phone]) 567-306810-06-2024 Consult note Author Mike Burleson [facility] March 10, 2024 11:29amNote Date/TimeOct2023 11:29[place] [address] Gastroenterology Consult Note Signed Patient: Myra Pickard SR MR#: [id number] : 1965 Acct:[id number] Age/Sex: 58 / M Adm Date: 4 Loc: Room: [address] [place] [address] Type: ADM IN Attending Dr: João Powell [...] Denies easy bruising Allergic/Immunologic Allergic/Immunologic: Denies wheezing [facility] Medical History Vitamin D deficiency Spondylosis [...] mass Atrial fibrillation Atherosclerotic heart disease of [place] coronary artery with unspecified angina pectoris Anxiety [...] Use Type: None Social History Comments: at [facility] in [place] for rehab Meds Medications and Allergies Allergies [...] [History Confirmed 03/08/24] flash glucose scanning reader (OnavoStyle Jigar 2 [place]) #1 ea 12/28/23 [Rx Confirmed 03/08/24] flash [...] % (Auto) 83.4 Lymph % (Auto) 4.9 [place] % (Auto) 10.6 Eos % (Auto) 0.8 Baso % (Auto) 0.3 Nucleat RBC Rel Count 0.2 Neut # (Auto) 11.4 H Lymph # (Auto) 0.7 L [place] # (Auto) 1.5 H Eos # (Auto) [...] MPV Neut % (Auto) Lymph % (Auto) [place] % (Auto) Eos % (Auto) Baso % (Auto) Nucleat RBC Rel Count Neut # (Auto) Lymph # (Auto) [place] # (Auto) Eos # (Auto) Baso # [...] signed by Mike Burleson MD> 03/10/24 1129 [facility] Work Phone: 1(856) 201-602210-06-2024 Progress note Author João Powell [facility] March 10, 2024 10:14amNote Date/TimeOct2023 10:14amJoel [place] [id number] Hospitalist Progress Note Signed Patient: Myra Pickard SR MR#: [id number] : 1965 Acct:[id number] Age/Sex: 58 / M Adm Date: 4 Loc: Room: [address] [place] [address] Type: ADM IN Attending Dr: João Powell [...] IV 03/10/25 09:22 DAILY PRN Hypomagnesemia Ipratropium [place]on 0.5 mg 03/08/24 20:00 03/10/24 05:25 Ipratropium [place] 0.5 Mg/2.5 Ml Vial.Neb INHALATION 03/08/25 19:59 [...] With Patient (min): 45 Documented By: João Pwoell MD 03/10/24 1008 Signed By: <Electronically signed by João Powell MD> 03/10/[address] [facility] Work Phone: 1(457) 658-146610-05-2024 Progress note Author João Powell [facility] March 09, 2024 11:32amNote Date/TimeOct2023 10:[place] [address] Hospitalist Progress Note Signed Patient: Myra Pickard SR MR#: [id number] : 1965 Acct:[id number] Age/Sex: 58 / M Adm Date: 4 Loc: 3T Room: [address] [place] [address] Type: ADM IN Attending Dr: João Powell [...] 21:59 5,000 unit Q8HR SATISH Administration Ipratropium [place] 0.5 mg 03/08/24 20:00 03/09/24 09:14 Ipratropium [place] 0.5 Mg/2.5 Ml Vial.Neb INHALATION 03/08/25 19:59 [...] <Electronically signed by João Powell MD> 03/09/[address] [facility] Work Phone: 1(708) 158-420710-05-2024 Consult note Author Job James [facility] March 09, 2024 11:12amNote Date/TimeOct2023 11:10am[place] [address] Psychiatry Consult Note Signed Patient: Myra Pickard SR MR#: [id number] : 1965 Acct:[id number] Age/Sex: 58 / M Adm Date: 4 Loc: Room: [address] [place] [address] Type : ADM IN Attending Dr: João [...] more like retaliation Insight: fair Judgment: fair [facility] Medical History Vitamin D deficiency Spondylosis [...] mass Atrial fibrillation Atherosclerotic heart disease of [place] coronary artery with unspecified angina pectoris Anxiety [...] [History Confirmed 03/08/24] flash glucose scanning reader (Newzstand Jigar 2 [place]) #1 ea 12/28/23 [Rx Confirmed 03/08/24] flash glucose sensor (OnavoStyle Jigar 2 Sensor kit) #1 ea 12/28/23 [...] Appearance Clear Urine pH 5.0 Ur Specific Mobile 1.013 Urine Protein Negative Urine Glucose (UA) [...] signed by Job James MD> 03/09/[address] [facility] Work Phone: 1(521) 489-612210-05-2024 Consult note Author Luther Dozier [facility] March 09, 2024 10:59amNote Date/TimeOct2023 9:07[place] [address] Neurology Consult Note Signed Patient: Myra Pickard SR MR#: [id number] : 1965 Acct:[id number] Age/Sex: 58 / M Adm Date: 4 Loc: Room: [address] [address] Type: ADM IN Attending Dr: João Powell MD Copies to: DO Teresa Freeman DO Mohamad Akil, MD~ HPI Consult Date: 03/09/24 Purchasing/Receiving: Luther Dozier DO [facility] Medical History Vitamin D deficiency Spondylosis [...] mass Atrial fibrillation Atherosclerotic heart disease of [place] coronary artery with unspecified angina pectoris Anxiety [...] Use Type: None Social History Comments: at [facility] [place] for rehab Meds Medications and Allergies Allergies [...] [History Confirmed 03/08/24] flash glucose scanning reader (Newzstand Jigar 2 [place]) #1 ea 12/28/23 [Rx Confirmed 03/08/24] flash glucose sensor (Getting[employer] Jigar 2 Sensor kit) #1 ea 12/28/23 [...] Marks Jr., D.O.03/08/2024 2:41 PM Dictation Location: [place] [address] Chest X-Ray 03/08/24 17:03 IMPRESSION: No acute process. Impression dictated by: Sudeep Lind M.D.03/08/2024 6:08 PM Dictation Location: [place] [address] Brain MRI 03/08/24 17:48 IMPRESSION: No acute intracranial process. Impression dictated by: Sudeep Lind M.D.03/08/2024 8:10 PM Dictation Location: [place] [address] Assessment/Plan (1) Altered mental status: Qualifiers: Altered mental status type: unspecified Qualified Code(s): R41.82 - Altered mental status, unspecified Plan CONSULT REASON: Sudden AMS, stroke ruled out HPI: 58-year-old man. History that includes coronary artery disease with PCI, peripheral vascular disease, type 2 diabetes, hypertension, heart failure, diabetic neuropathy, status post recent below the knee amputation at [facility]. He had just been here [...] [facility] He said the year was 20. EXAMINATION: [...] <Electronically signed by Luther Dozier DO> 03/09/[address] [facility] Work Phone: 1(611) 425-771510-05-2024 History and physical note Author João Powell [facility] March 08, 2024 10:05pmNote Date/TimeOct2023 7:19[place] [address] Hospitalist H&P Signed Patient: Myra Pickard MR#: [id number] : 1965 Acct:[id number] Age/Sex: 58 / M Adm Date: 4 Loc: 3T Room: [address] [place] [address] Type: ADM IN Attending Dr: João Powell [...] diabeticneuropathy status post right BKA recently at [facility], here today for altered mental [...] neck were all negative. ED staff contacted [place] neuro stroke team and patientwas deemed not [...] of Systems Unobtainable due to mental status [facility] Medical History Vitamin D deficiency Spondylosis [...] mass Atrial fibrillation Atherosclerotic heart disease of [place] coronary artery with unspecified angina pectoris Anxiety [...] Use Type: None Social History Comments: at [facility] [place] for rehab Meds Medications and Allergies Allergies [...] [History Confirmed 03/08/24] flash glucose scanning reader (Newzstand Jigar 2 [place]) #1 ea 12/28/23 [Rx Confirmed 03/08/24] flash glucose sensor (OnavoStyle Jigar 2 Sensor kit) #1 ea 12/28/23 [...] % (Auto) 13.1 % (.) 03/08/24 14:15 [place]ipton % (Auto) 13.2 % (.) 03/08/24 14:15 Eos % (Auto) 3.3 % (.) 03/08/24 14:15 Baso % (Auto) 1.0 % (.) 03/08/24 14:15 Nucleat RBC Rel Count 0.2 /100 WBC (0-0.5) 03/08/24 14:15 Neut # (Auto) 6.2 x10E3/uL (1.8-7.7) 03/08/24 14:15 Lymph # (Auto) 1.2 x10E3/uL (1.00-4.8) 03/08/24 14:15 [place]on # (Auto) 1.2 x10E3/uL (0.0-0.8) H 03/08/24 [...] pH 5.0 (5.0-9.0) 03/08/24 16:11 Ur Specific Mobile 1.013 (1.001-1.030) 03/08/24 16:11 Urine Protein Negative [...] <Electronically signed by João Powell MD> 03/08/242204 [facility] Work Phone: 1(184) 429-900410-01-2024 Progress note Author Luther Dozier [facility] March 05, 2024 2:28pmNote Date/TimeOct2023 2:22pm[place] [address] Neurology Progress Note Signed Patient: Myra Pickard SR MR#: [id number] : 1965 Acct:[id number] Age/Sex: 58 / M Adm Date: 4 Loc: Room: [address] [place] [address] Type: ADM IN Attending Dr: João Powell [...] Therapy Recommendations: OT Recommendations OT Recommended Discharge Long-Term Facility Location PT Recommendations PT Recommended Discharge Long-Term Facility Location PT Recommended Services at Physical [...] signed by Luther Dozier DO> 03/05/[address] [facility] Work Phone: 1(132) 508-503810-01-2024 Progress note Author João Powell [facility] March 05, 2024 2:17pmNote Date/TimeOct2023 2:17[place] [address] Hospitalist Progress Note Signed Patient: Myra Pickard MR#: [id number] : 1965 Acct:[id number] Age/Sex: 58 / M Adm Date: 4 Loc: Room: [address] [place] [address] Type: ADM IN Attending Dr: João Powell [...] 1,000 Ml IV 03/03/25 17:59 60 mls/hr .[id number] SATISH Administration Ferric Sodium Gluconate 110 mls @ 110 mls/hr 03/05/24 12:00 03/05/24 13:18 Complex 125 mg/ Sodium IV 03/07/24 09:01 110 mls/hr Chloride QAM SATISH Administration Insulin Aspart 0 units 03/04/24 12:00 03/05/24 11:41 Insulin Aspart 300 Units/3 Ml Insuln.Pen SUBCUT 03/04/25 11:59 Not Given TID.WM.HS [facility] Protocol Ipratropium [place]on 0.5 mg 03/04/24 09:00 03/05/24 13:59 Ipratropium [place] 0.5 Mg/2.5 Ml Vial.Neb INHALATION 03/04/25 08:59 [...] 45 Documented By: João Powell MD 03/05/24 1406 Signed By: <Electronically signed by João Powell MD> 03/05/[address] [facility] Work Phone: 1(427) 631-645410-01-2024 Consult note Author Mike Burleson [facility] March 05, 2024 1:35pmNote Date/TimeOct2023 9:32[place] [address] Gastroenterology Consult Note Signed Patient: Myra Pickard SR MR#: [id number] : 1965 Acct:[id number] Age/Sex: 58 / M Adm Date: 4 Loc: Room: [address] [place] [address] Type: ADM IN Attending Dr: João Powell [...] Hematologic/Lymphatic: Denies easy bruising and Denies lymphadenopathy [facility] Medical History Vitamin D deficiency Spondylosis [...] mass Atrial fibrillation Atherosclerotic heart disease of [place] coronary artery with unspecified angina pectoris Anxiety [...] 12/25/23[Rx Confirmed 03/03/24] flash glucose scanning reader (Newzstand Jigar 2 [place]) #1 ea 12/28/23 [Rx Confirmed 03/03/24] flash glucose sensor (OnavoStyle Jigar 2 Sensor kit) #1 ea 12/28/23 [...] MPV Neut % (Auto) Lymph % (Auto) [place] % (Auto) Eos % (Auto) Baso % (Auto) Nucleat RBC Rel Count Neut # (Auto) Lymph # (Auto) [place] # (Auto) Eos # (Auto) Baso # [...] Blood Type Recheck Antibody Screen Negative Crossmatch ([facility]) See Detail 03/04/24 03/04/24 03/04/24 13:07 14:29 16:32 Corrected WBC Uncorrected WBC Count RBC Hgb Hct MCV MCH MCHC RDW Plt Count MPV Neut % (Auto) Lymph % (Auto) [place] % (Auto) Eos % (Auto) Baso % (Auto) Nucleat RBC Rel Count Neut # (Auto) Lymph # (Auto) [place] # (Auto) Eos # (Auto) Baso # [...] Type Recheck O Positive Antibody Screen Crossmatch ([facility]) 03/04/24 03/05/24 03/05/24 20:45 06:11 06:54 Corrected WBC 8.3 Uncorrected WBC Count 8.3 RBC 3.83 L Hgb 8.6 L Hct 26.8 L MCV 70.1 L MCH 22.4 L MCHC 31.9 L RDW 21.4 H Plt Count 361 MPV 7.9 Neut % (Auto) 67.6 Lymph % (Auto) 16.1 [place] % (Auto) 12.4 Eos % (Auto) 2.8 Baso % (Auto) 1.1 Nucleat RBC Rel Count 0.0 Neut # (Auto) 5.6 Lymph # (Auto) 1.3 [place] # (Auto) 1.0 H Eos # (Auto) [...] evaluation. -Recommend obtaining prior GI workup from [facility] -I recommend continuing his PPI [...] follow-up with his previous GI team at [facility] Thank you for this consult, little further to add from a GI standpoint. I will peripherally follow pending discharge. Documented By: Mike Burleson MD 03/05/24931 Signed By: <Electronically signed by Mike Burleson MD> 03/05/[address] [facility] Work Phone: 1(373) 139-836609-30-2024 Consult note Author Luther Dozier [facility] March 04, 2024 12:57pmNote Date/TimeSept2023 12:57[place] [address] Neurology Consult Note Signed Patient: Myra Pickard SR MR#: [id number] : 1965 Acct:[id number] Age/Sex: 58 / M Adm Date: 4 Loc: 3T Room: [address] [place] [address] Type: ADM INOo Attending Dr: João Powell MD Copies to: DO Teresa Freeman DO Mohamad Akil, MD~ HPI Consult Date: 03/04/24 Purchasing/Receiving: Luther Dozier DO [facility] Medical History Vitamin D deficiency Spondylosis [...] mass Atrial fibrillation Atherosclerotic heart disease of [place] coronary artery with unspecified angina pectoris Anxiety [...] flash glucose scanning reader (FreeStyle Jigar 2 [place]) #1 ea 12/28/23 [Rx Confirmed 03/03/24] flash [...] Sudeep Lind M.D.03/03/2024 3:05 PM Dictation [facility]en/Pelvis CT 03/03/24 14:19 IMPRESSION: No acute findings. Moderate constipation. Impression dictated by: Sudeep Lind M.D.03/03/2024 3:01 PM Dictation Location: [facility] [place] Head CT 03/03/24 16:59 IMPRESSION: No acute findings. Impression dictated by: Sudeep Lind M.D.03/03/2024 5:50 PM Dictation Location: [facility] customer insight Assessment/Plan (1) Syncope: Qualifiers: Syncope type: unspecified Qualified Code(s): R55 - Syncope and collapse Plan CONSULT REASON: Syncope HPI: 58-year-old man. Significant bodily vasculopathy, probably secondary to diabetes. History of coronary artery disease requiring percutaneous intervention, peripheral vascular disease, type 2 diabetes,hypertension, severediabetic polyneuropathy, nonhealing right lower extremity wounds now status postright below the knee amputation about 3 weeks ago at [facility]. He was feeling lightheaded everytime he was [...] signed by Luther Dozier DO> 03/04/[address] [facility] Work Phone: 1(221) 209-954109-30-2024 Progress note Author João Powell [facility] March 04, 2024 11:53amNote Date/TimeSept2023 11:46[place] [phone] Hospitalist Progress Note Signed Patient: Myra Pickard SR MR#: [id number] : 1965 Acct:[id number] Age/Sex: 58 / M Adm Date: 4 Loc: 3T Room: [address] [place] [address] Type: ADM INOo Attending Dr: João Powell [...] 1,000 Ml IV 03/03/25 17:59 60 mls/hr .[id number] SATISH Administration Sodium Chloride 500 mls @ 20 mls/hr 03/04/24 09:29 0.9 % Sodium Chloride IV 03/05/24 09:28 PROTOCOL PRN BLOOD TRANSFUSION Ipratropium [place] 0.5 mg 03/04/24 09:00 03/04/24 10:47 Ipratropium [place] 0.5 Mg/2.5 Ml Vial.Neb INHALATION 03/04/25 08:59 [...] signed by João Powell MD> 03/04/[address] [facility] Work Phone: 1(761) 808-296509-30-2024 History and physical note Author João Powell [facility] March 03, 2024 10:48pmNote Date/TimeSeptember 2023 5:55pm[place] [id number] Hospitalist H&P Signed Patient: Myra Picakrd SR MR#: [id number] : 1965 Acct:[id number] Age/Sex: 58 / M Adm Date: 4 Loc: 3T Room: 6Z0736-8 Type: ADM INOo Attending Dr: João Powell [...] diabeticneuropathy status post right BKA recently at [facility]. He presents today with episodes [...] negative unless noted below or in HPI [facility] Medical History Vitamin D deficiency Spondylosis [...] mass Atrial fibrillation Atherosclerotic heart disease of [place] coronary artery with unspecified angina pectoris Anxiety [...] 12/25/23[Rx Confirmed 03/03/24] flash glucose scanning reader (Newzstand Jigar 2 [place]) #1 ea 12/28/23 [Rx Confirmed 03/03/24] flash glucose sensor (OnavoStyle Jigar 2 Sensor kit) #1 ea 12/28/23 [...] % (Auto) 18.2 % (.) 03/03/24 14:00 [place] % (Auto) 11.3 % (.) 03/03/24 14:00 Eos % (Auto) 3.2 % (.) 03/03/24 14:00 Baso % (Auto) 1.7 % (.) 03/03/24 14:00 Nucleat RBC Rel Count 0.2 /100 WBC (0-0.5) 03/03/24 14:00 Neut # (Auto) 4.7 x10E3/uL (1.8-7.7) 03/03/24 14:00 Lymph # (Auto) 1.3 x10E3/uL (1.00-4.8) 03/03/24 14:00 [place] # (Auto) 0.8 x10E3/uL (0.0-0.8) 03/03/24 14:00 [...] pH 5.0 (5.0-9.0) 03/03/24 14:35 Ur Specific Mobile 1.009 (1.001-1.030) 03/03/24 14:35 Urine Protein Negative [...] <Electronically signed by João Powell MD> 03/03/24 3238 [facility] Work Phone: 1(444) 355-684209-26-2024 History of Present illness Narrative* Mike Montes [...] up Removal of toshia next week at [facility] and sizing for prosthesis.. documented in this encounterC[facility] History of Present illness Narrative* Guero Tam, DO - 02/28/2024 2:51 PM EDT Patient Name: Myra Pickard Date of : 1965 Date of Service: 02/28/2024 Facility: [facility]AT[facility] Type of Visit: Skilled Visit Subjective Myra [...] polyneuropathy associated with type 2 diabetes mellitus ([facility]) 4. Other abnormalities of gait and mobility 5. Muscle spasm I'm going to add baclofen 10 mg Q6hrs prn spasm. D/C januvia since he is on Trulicity. Continue therapy and other orders as directed. All medications reviewed and are medically necessary. ELECTRONICALLY SIGNED BY: Guero Tam DO documented in this encounterCincinnati [facility]09-20-2024 History of Present illness Narrative* [...] and grafts Fibromyalgia Atherosclerotic heart disease of [place] coronary artery without angina pectoris GERD glaucoma Gout Hyperlipidemia Essential hypertension Migraine Polyneuropathy Obstructive and reflux uropathy RLS Osteoarthritis Dorsalgia Benign prostatic hyperplasia with lower urinary tract symptoms Bilateral carpal tunnel syndrome Heart failure unspecified Nicotine dependence of cigarettes Plan: Admit to PSYCHIATRIC for therapies. continue medications. Full code Renew oxycodone 10 mg Q6hrs prn Good rehab potential. Discharge to home when able to safely discharge documented in this encounterCincinnati [facility]09-18-2024 Hospital Discharge instructions Patient Education [...] to cope with stress. General instructions Take lans-gkq-icbztdl and prescription medicines only as told by [...] the National Suicide Prevention Lifeline at or 244 in the [place] This is open 24 hours a day in the [place] Text the Crisis Text Line at 061676 (in the [place] Summary It will take [...] provider. Document Revised: 12/15/2021 Document Reviewed: 10/07/2021 [employer] Patient Education 2023 [employer]. Follow Up Care 02/09/2024 10:35:38 With:TERESA LYNCH DO, FAM Address: [address] [place] [address]- When: Unknown With:Mike Montes MD Address: [address] [place] [address]- When:2 weeks Comments:Call for followup appointment [facility] 09-18-2024 NoteDischarge Summary Admission and Discharge Information [...] With When Contact Information TERESA LYNCH DO, [facility] [address] [facility] [address]- Additional Instructions: Simon HERRERA, Mike Weathers Within 2 weeks [address] [place] [address]- Additional Instructions: Call for followup appointment Patient Education [facility]putation[facility] HospitalComment on above:Result Comment: Electronically Signed By: Raulito Gilliland DO\.br\Date and Time Signed: 02/21/24 15:01 [id number] Evaluation + Plan noteExtracted from:Title: Discharge NoteAuthor:Raulito [...] With When Contact Information TERESA LYNCH DO, [facility] [address] [place] [address]- Additional Instructions: Simon HERRERA, Mike FMary Within 2 weeks [address] [place] [address]- Additional Instructions: Call for followup appointment Living [...] to aid in wound healing Ordered: [facility] Care/Day Straight Fwd 25 Minutes 56129 2. Leukocytosis (D72.829: Elevated white blood cell [...] artery disease (I25.10: Atherosclerotic heart disease of [place] coronary artery withoutangina pectoris) Aspirin, atorvastatin 80 [...] Auto Diff CBC w/ Auto Diff eGFR [facility] Care/Day Moderate 35 Minutes 06017 2. Leukocytosis (D72.829: Elevated white blood cell count, unspecified) Likely reactive with nausea and vomiting overnight. Will continue to monitor closely. No signs of infection of surgical wound. Follow-up a.m. labs. 3. Essential hypertension (I10: Essential (primary) hypertension) Metoprolol, isosorbide mononitrate, Lasix. Well-controlled. Ordered: [facility] Care/Day Moderate 35 Minutes 05276 4. Hyperlipidemia (E78.5: Hyperlipidemia, unspecified) Statin Ordered: [facility] Care/Day Moderate 35 Minutes 32112 5. Anemia (D64.9: Anemia, unspecified) Acute on chronic. Stable postoperatively. Will continue to monitor closely Ordered: Basic Metabolic Panel CBC w/ Auto Diff [facility] Care/Day Moderate 35 Minutes 19810 6. 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 (E11.42: Type 2 diabetes mellitus with diabetic polyneuropathy) Glimepiride 2 mg p.o. twice daily, glargine 35 units nightly, lispro 5 units with meals, BGT ACHS, sliding scale insulin as needed with meals Poorly controlled. Increased glargine to 35 units nightly om 02/18 from 30 units nightly. Ordered: [facility] Care/Day Moderate 35 Minutes 98553 7. Stage 3 chronic kidney disease (N18.30: Chronic kidney disease, stage 3 unspecified) Creatinine 1.8. Baseline 1.5-1.6. Monitor closely. Ordered: Basic Metabolic Panel CBC w/ Auto Diff eGFR [facility] Care/Day Moderate 35 Minutes 85181 8. Coronary artery disease (I25.10: Atherosclerotic heart disease of [place] coronary artery withoutangina pectoris) Aspirin, atorvastatin 80 mg p.o. daily, Plavix Metoprolol, isosorbide mononitrate, Lasix Ordered: [facility] Care/Day Moderate 35 Minutes 33882 9. Tobacco abuse (Z72.0: Tobacco use) Counseled [...] Metabolic Panel CBC w/ Auto Diff [facility] Care/Day Moderate 35 Minutes 82866 2. Essential hypertension (I10: Essential (primary) hypertension) Metoprolol, isosorbide mononitrate, Lasix. Well-controlled. Ordered: [facility] Care/Day Moderate 35 Minutes 37052 3. Hyperlipidemia (E78.5: Hyperlipidemia, unspecified) Statin Ordered: [facility] Care/Day Moderate 35 Minutes 90618 4. Anemia (D64.9: Anemia, unspecified) Acute on chronic. Stable postoperatively. Will continue to monitor closely Ordered: CBC w/ Auto Diff [facility] Care/Day Moderate 35 Minutes 31834 5. 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 (E11.42: Type 2 diabetes mellitus with diabetic polyneuropathy) Glimepiride 2 mg p.o. twice daily, glargine 30 units nightly, lispro 5 units with meals, BGT ACHS, sliding scale insulin as needed with meals Poorly controlled. Will increase glargine to 35 units nightly. Ordered: [facility] Care/Day Moderate 35 Minutes 08993 6. Stage 3 chronic kidney disease (N18.30: Chronic kidney disease, stage 3 unspecified) Creatinine 1.7. Baseline 1.5-1.6. Monitor closely. Ordered: Basic Metabolic Panel [facility] Care/Day Moderate 35 Minutes 24894 7. Coronary artery disease (I25.10: Atherosclerotic heart disease of [place] coronary artery withoutangina pectoris) Aspirin, atorvastatin 80 [...] artery disease (I25.10: Atherosclerotic heart disease of [place] coronary artery withoutangina pectoris) continue plavix as ordered 8. Tobacco abuse (Z72.0: Tobacco use) nicotine patch Orders: insulin lispro, 5 unit(s) = 0.05 mL, Injection-Insulin, SubCutaneous, TIDWM, Routine, Start date 02/18/24 12:00:00 EDT Basic Metabolic Panel CBC w/ Auto Diff Extracted from:Title:APSO NoteAuthor:Mairsela HERRERA, Elan RobbinsDate:02/17/24 Goal: 1. Aggressive bowel regimen as ordered 2. Monitor hgb 3. Monitor BGL, better controlled but still elevated. DVT prophylaxis with heparin if tolerated. 1. Hx of right BKA (Z89.511: Acquired absence of right leg below knee) Pain control PT/OT discharge to rehab Ordered: [facility] Care/Day High 50 Minutes 89665 [facility] Care/Day Moderate 35 Minutes 96515 2. Essential hypertension (I10: Essential (primary) hypertension) good control continue to hold losartan continue lasix and imdur monitor BP Ordered: [facility] Care/Day High 50 Minutes 75396 [facility] Care/Day Moderate 35 Minutes 14424 3. Hyperlipidemia (E78.5: Hyperlipidemia, unspecified) continue statin Ordered: [facility] Care/Day High 50 Minutes 19491 [facility] Care/Day Moderate 35 Minutes 37942 4. Anemia (D64.9: Anemia, unspecified) Acute Blood loss anemia, possibly post surgical loss hgb has remained stable post transfusion continue to monitor CBC today Ordered: [facility] Care/Day High 50 Minutes 33261 [facility] Care/Day Moderate 35 Minutes 22713 5. 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 (E11.42: Type 2 diabetes mellitus with diabetic polyneuropathy) BGL is better controlled today compared to yesterday continue current insulin dose with sliding scale If BGl continues to be elevated during the day today, will start meal time scheduled coverage Ordered: [facility] Care/Day High 50 Minutes 48945 [facility] Care/Day Moderate 35 Minutes 41850 6. Stage 3 chronic kidney disease (N18.30: Chronic kidney disease, stage 3 unspecified) Overall renal function is stable continue to monitor Ordered: [facility] Care/Day High 50 Minutes 77423 [facility] Care/Day Moderate 35 Minutes 10319 7. Coronary artery disease (I25.10: Atherosclerotic heart disease of [facility] coronary artery withoutangina pectoris) On home medication/ continue plavix and statin Ordered: [facility] Care/Day High 50 Minutes 70503 [facility] Care/Day Moderate 35 Minutes 79022 8. Tobacco abuse (Z72.0: Tobacco use) nicotine patch Ordered: [facility] Care/Day High 50 Minutes 13605 [facility] Care/Day Moderate 35 Minutes 65200 Orders: acetaminophen-oxycodone, 2 tab(s), Tab, Oral, [id number], Routine, Start date 02/16/24 14:00:00 EDT heparin, [...] [facility] Care/Day High 50 Minutes 69586 [facility] Care/Day High 50 Minutes 00296 2. Essential hypertension (I10: Essential (primary) hypertension) had to held lasix this morning due to low BP continue other home meds, Imdur, Ordered: Basic Metabolic Panel CBC w/ Auto Diff eGFR Path. Review [facility] Care/Day High 50 Minutes 74511 [facility] Care/Day High 50 Minutes 73277 3. Hyperlipidemia (E78.5: Hyperlipidemia, unspecified) continue statin Ordered: Basic Metabolic Panel CBC w/ Auto Diff eGFR Path. Review [facility] Care/Day High 50 Minutes 76897 [facility] Care/Day High 50 Minutes 18802 4. Anemia (D64.9: Anemia, unspecified) hgb is stable post transfusion at 7.6 since patient is stable, will start heparin prophylaxis Ordered: Basic Metabolic Panel CBC w/ Auto Diff eGFR Path. Review [facility] Care/Day High 50 Minutes 22083 [facility] Care/Day High 50 Minutes 22472 5. 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 Review [facility] Care/Day High 50 Minutes 02415 [facility] Care/Day High 50 Minutes 14197 6. Stage 3 chronic kidney disease (N18.30: Chronic kidney disease, stage 3 unspecified) stable continue to monitor Ordered: Basic Metabolic Panel CBC w/ Auto Diff eGFR Path. Review [facility] Care/Day High 50 Minutes 79613 [facility] Care/Day High 50 Minutes 21520 7. Coronary artery disease (I25.10: Atherosclerotic heart disease of [facility] coronary artery withoutangina pectoris) overall stable continue plavix Ordered: Basic Metabolic Panel CBC w/ Auto Diff eGFR Path. Review [facility] Care/Day High 50 Minutes 50085 [facility] Care/Day High 50 Minutes 51696 8. Tobacco abuse (Z72.0: Tobacco use) nicotine patch Ordered: Basic Metabolic Panel CBC w/ Auto Diff eGFR Path. Review [facility] Care/Day High 50 Minutes 39963 [facility] Care/Day High 50 Minutes 25883 Orders: acetaminophen-oxycodone, 2 tab(s), Tab, Oral, [id number]-RP, Routine, Start date 02/16/24 14:00:00 EDT heparin, [...] Basic Met[facility] w/ [facility] 50 Minutes 80755 2. Essential hypertension (I10: Essential (primary) hypertension) good control continue current medications Ordered: Basic Metabolic Panel CBC w/ Auto Diff [facility]/Day High 50 Minutes 37672 3. Hyperlipidemia (E78.5: Hyperlipidemia, unspecified) statin Ordered: Basic Metabolic Panel CBC w/ Auto Diff [facility]/Day High 50 Minutes 77582 4. Anemia (D64.9: Anemia, unspecified) hgb has remained stable since transfusion hgb is 7.7. i thought it should be higher than than considering that he received 2 units of PRBC. Ordered: Basic Metabolic Panel CBC w/ Auto Diff [facility]/Day High 50 Minutes 03214 5. 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 (E11.42: Type 2 diabetes mellitus with diabetic polyneuropathy) BGL is poorly controlled diabetic diet increase lantus to 25 units QHS accucheck achs Ordered: Basic Metabolic Panel CBC w/ Auto Diff [facility]/Day High 50 Minutes 00130 6. Stage 3 chronic kidney disease (N18.30: Chronic kidney disease, stage 3 unspecified) overall stable, but noted mild increase in creatinine today contiue to monitor Ordered: Basic Metabolic Panel CBC w/ Auto Diff [facility]/Day High 50 Minutes 17571 7. Coronary artery disease (I25.10: Atherosclerotic heart disease of [facility] coronary artery withoutangina pectoris) Plavix for secondary prophylaxis Ordered: Basic Metabolic Panel CBC w/ Auto Diff [facility]/Day High 50 Minutes 51621 8. Tobacco abuse (Z72.0: Tobacco use) nicotine patch Ordered: Basic Metabolic Panel CBC w/ Auto Diff [facility]/Day High 50 Minutes 27992 Orders: insulin glargine, 25 unit(s), Injection-Insulin, SubCutaneous, [...] PT/OT appreciate Vascular team recommendations Ordered: [facility] Care/Day High 50 Minutes 46331 2. Essential hypertension (I10: Essential (primary) hypertension) Better compared to yesterday. continue current management currently on lasix, losartan, metoprolol and imdur. seems to be too much BP meds since BP is about 120s. continue to monitor BP. Ordered: [facility] Care/Day High 50 Minutes 08443 3. Hyperlipidemia (E78.5: Hyperlipidemia, unspecified) continue statin Ordered: [facility] Care/Day High 50 Minutes 06545 4. Anemia (D64.9: Anemia, unspecified) Acute on chronic anemia due to surgical intervention hgb has remained stable since transfusion continue to monitor h and h Ordered: [facility] Care/Day High 50 Minutes 74672 5. 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 continue lantus at current dose continue Jardiance and Glimipiride Ordered: [facility] Care/Day High 50 Minutes 06534 6. Stage 3 chronic kidney disease (N18.30: Chronic kidney disease, stage 3 unspecified) possible due to complication of DM. monitor renal function. creatinine at baseline of 1.9. needs out patient follow up for Nephro recommendation 7. Coronary artery disease (I25.10: Atherosclerotic heart disease of [facility] coronary artery withoutangina pectoris) continue plavix and asa as ordered Orders: acetaminophen-oxycodone, 1 tab(s), Tab, Oral, [id number]-UO, Routine, Start date 02/13/24 13:00:00 EDT furosemide, [...] Ordered: [facility] Care/Day High 75 Minutes 79548 2. Essential hypertension (I10: Essential (primary) hypertension) BP on the low side today unsure if this is related to ?Anemia hold Losartan monitor BP, if still low, will bolus. Ordered: [facility] Care/Day High 75 Minutes 80120 3. Hyperlipidemia (E78.5: Hyperlipidemia, unspecified) statin Ordered: [facility] Care/Day High 75 Minutes 40226 4. Anemia (D64.9: Anemia, unspecified) Acute on chronic anemia. acute loss due to post op blood loss transfused 2 units of PRBC today. continue to monitor will hold asa and plavix for now and resume when Anemia improves or stabilized Also hold off on anticoagulation until anemia stabilizes can do scd on left leg Ordered: [facility] Care/Day High 75 Minutes 67424 5. 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 (E11.42: Type 2 diabetes mellitus with diabetic polyneuropathy) poorly controlled diabetic diet continue glimipiride, lantus and januvia Monitor BGL and treate with sliding scale as needed Ordered: [facility] Care/Day High 75 Minutes 23938 Orders: acetaminophen-oxycodone, 1 tab(s), Tab, Oral, [id number]-BF, Routine, Start date 02/13/24 13:00:00 EDT amitriptyline, [...] - Adult GeneralAuthor:MD Juanito, Laura Date:02/12/24 Plan [employer] [employer] (ASA) physical status classification: [...] US PVR Lower EXT Complete Bilat 11/20/23 [facility] 09-18-2024 NotePeripheral smear evaluation:[facility] HospitalComment on above:Performed By: #### [id number] #### [facility] [address], [place] [phone] NoteProgress Note-Physician Assessment/Plan Patient is a 58-year-old [...] to aid in wound healing Ordered: [facility] Care/Day Straight Fwd 25 Minutes 76226 2. Leukocytosis (D72.829: Elevated white blood cell [...] artery disease (I25.10: Atherosclerotic heart disease of [place] coronary artery withoutangina pectoris) ? Aspirin, atorvastatin [...] Lymph Auto: 12.4 % Low (02/21/24 06:02:00) [place] Auto: 8.7 % (02/21/24 06:02:00) Eos Auto: 3.6 % (02/21/24 06:02:00) Basophil Auto: 0.7 % (02/21/24 06:02:00) Neutro Absolute: 9.3 E9/L High (02/21/24 06:02:00) Lymph Absolute: 1.5 E9/L (02/21/24 06:02:00) [place] Absolute: 1.1 E9/L High (02/21/24 06:02:00) Eos [...] High (02/21/24 10:49: (more content not included)... [facility] HospitalComment on above:Result Comment: Electronically Signed By: [...] Auto Diff CBC w/ Auto Diff eGFR [facility] Care/Day Moderate 35 Minutes 18698 2. Leukocytosis (D72.829: Elevated white blood cell count, unspecified) ? Likely reactive with nausea and vomiting overnight. Will continue to monitor closely. No signs ofinfection of surgical wound. Follow-up a.m. labs. 3. Essential hypertension (I10: Essential (primary) hypertension) ? Metoprolol, isosorbide mononitrate, Lasix. Well-controlled. Ordered: [facility] Care/Day Moderate 35 Minutes 44419 4. Hyperlipidemia (E78.5: Hyperlipidemia, unspecified) ? Statin Ordered: [facility] Care/Day Moderate 35 Minutes 37888 5. Anemia (D64.9: Anemia, unspecified) ? Acute on chronic. Stable postoperatively. Will continue to monitor closely Ordered: Basic Metabolic Panel CBC w/ Auto Diff [facility] Care/Day Moderate 35 Minutes 47958 6. 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 Glimepiride 2 mg p.o. twice daily, glargine 35 units nightly, lispro 5 units with meals, BGT ACHS, sliding scale insulin as needed with meals ?Poorly controlled. Increased glargine to 35 units nightly om 02/18 from 30 units nightly. Ordered: [facility] Care/Day Moderate 35 Minutes 29861 7. Stage 3 chronic kidney disease (N18.30: Chronic kidney disease, stage 3 unspecified) ? Creatinine 1.8. Baseline 1.5-1.6. Monitor closely. Ordered: Basic Metabolic Panel CBC w/ Auto Diff eGFR [facility] Care/Day Moderate 35 Minutes 54331 8. Coronary artery disease (I25.10: Atherosclerotic heart disease of [facility] coronary artery withoutangina pectoris) ? Aspirin, atorvastatin 80 mg p.o. daily, Plavix ? Metoprolol, isosorbide mononitrate, Lasix Ordered: [facility] Care/Day Moderate 35 Minutes 30609 9. Tobacco abuse (Z72.0: Tobacco use) ? [...] the indicated time period. (more content not included)...[facility] HospitalComment on above:Result Comment: Electronically Signed By: Ben Corrigan III, DO.br\Date and Time Signed: 02/20/24 19:09 [id number] NoteProgress Note-Physician Assessment/Plan Patient is a 58-year-old [...] Diff [facility] Hospital Care/Day Moderate 35 Minutes 62396 2. Essential hypertension (I10: Essential (primary) hypertension) ? Metoprolol, isosorbide mononitrate, Lasix. Well-controlled. Ordered: [facility] Hospital Care/Day Moderate 35 Minutes 58131 3. Hyperlipidemia (E78.5: Hyperlipidemia, unspecified) ? Statin Ordered: [facility] Care/Day Moderate 35 Minutes 50933 4. Anemia (D64.9: Anemia, unspecified) ? Acute on chronic. Stable postoperatively. Will continue to monitor closely Ordered: CBC w/ Auto Diff [facility] Hospital Care/Day Moderate 35 Minutes 37816 5. 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 Glimepiride 2 mg p.o. twice daily, glargine 30 units nightly, lispro 5 units with meals, BGT ACHS, sliding scale insulin as needed with meals ?Poorly controlled. Will increase glargine to 35 units nightly. Ordered: [facility] Hospital Care/Day Moderate 35 Minutes 56460 6. Stage 3 chronic kidney disease (N18.30: Chronic kidney disease, stage 3 unspecified) ? Creatinine 1.7. Baseline 1.5-1.6. Monitor closely. Ordered: Basic Metabolic Panel [facility] Care/Day Moderate 35 Minutes 63799 7. Coronary artery disease (I25.10: Atherosclerotic heart disease of [place] coronary artery withoutangina pectoris) ? Aspirin, atorvastatin [...] Exam General: alert, no (more content not included)...[facility] Comment on above:Result Comment: Electronically Signed By: Ben Corrigan III, DO\.br\Date and Time Signed: 02/19/24 17:00 [id number] NoteProgress Note-Physician Patient: MYRA PICKARD SR Age: 58 years Sex: Male : 1965 Associated Diagnoses: None Author: MD Solomon Ahmad F Postoperative Information Postoperative disposition: Postoperative disposition: To PACU. Optimetrix number: Optimetrix number [id number]. Anesthetic utilized: General. Health Status Allergies: Allergic [...] Discharge when meets criteria ( To home ).[facility] HospitalComment on above:Result Comment: Electronically Signed By: [...] mg oral tablet: 2 tab(s), Tab, Oral, [id number], Routine, Start date 02/16/24 14:00:00 EDT Plavix [...] cap(s), Oral, B (more content not included)... [facility] HospitalComment on above:Result Comment: Electronically Signed By: [...] artery disease (I25.10: Atherosclerotic heart disease of [place] coronary artery withoutangina pectoris) continue plavix as [...] mg/dL High (02/18/24 11:32:00) POC Device SN: [id number] (02/18/24 11:32:00) POC User ID: [id number] (02/18/24 11:32:00) POC Username: RAJESH OSEGUERA (02/18/24 [...] mg-325 mg oral tablet, 2 tab(s), Oral, p1th-IU Plavix 75 mg Tab, 75 mg= 1 tab(s), Oral, Daily polyethylene glycol 335 (more content not included)...[facility] HospitalComment on above:Result Comment: Electronically Signed By: Marisela HERRERA, Elan Guzman\Date and Time Signed: 02/18/24 13:45 [id number] NoteProgress Note-Physician Assessment/Plan Goal: 1. Aggressive bowel regimen as ordered 2. Monitor hgb 3. Monitor BGL, better controlled but still elevated. DVT prophylaxis with heparin if tolerated. 1. 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 Essential hypertension (I10: Essential (primary) hypertension) good control continue to hold losartan continue lasix and imdur monitor BP Ordered: [facility] Care/Day High 50 Minutes 00745 [facility] Care/Day Moderate 35 Minutes 44597 3. Hyperlipidemia (E78.5: Hyperlipidemia, unspecified) continue statin Ordered: [facility] Care/Day High 50 Minutes 93584 [facility] Care/Day Moderate 35 Minutes 80254 4. Anemia (D64.9: Anemia, unspecified) Acute Blood loss anemia, possibly post surgical loss hgb has remained stable post transfusion continue to monitor CBC today Ordered: [facility] Care/Day High 50 Minutes 12095 [facility] Care/Day Moderate 35 Minutes 51226 5. 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 Stage 3 chronic kidney disease (N18.30: Chronic kidney disease, stage 3 unspecified) Overall renal function is stable continue to monitor Ordered: [facility] Care/Day High 50 Minutes 93466 [facility] Care/Day Moderate 35 Minutes 02840 7. Coronary artery disease (I25.10: Atherosclerotic heart disease of [place] coronary artery withoutangina pectoris) On home medication/ continue plavix and statin Ordered: [facility] Care/Day High 50 Minutes 28476 [facility] Care/Day Moderate 35 Minutes 14865 8. Tobacco abuse (Z72.0: Tobacco use) nicotine patch Ordered: [facility] Care/Day High 50 Minutes 09624 [facility] Care/Day Moderate 35 Minutes 02348 Orders: acetaminophen-oxycodone, 2 tab(s), Tab, Oral, [id number], Routine, Start date 02/16/24 14:00:00 EDT heparin, [...] (02/17/24 07:49:00) POC Dev (more content not included)...[facility] HospitalComment on above:Result Comment: Electronically Signed By: Marisela HERRERA, Elan Robbins\.br\Date and Time Signed: 02/17/24 10:36 [id number] NoteProgress Note-Physician Assessment/Plan Goals: 1. 2 time [...] Review [facility] Hospital Care/Day High 50 Minutes 95817 [facility] Care/Day High 50 Minutes 34530 2. Essential hypertension (I10: Essential (primary) hypertension) had to held lasix this morning due to low BP continue other home meds, Imdur, Ordered: Basic Metabolic Panel CBC w/ Auto Diff eGFR Path. Review [facility] Care/Day High 50 Minutes 46934 [facility] Care/Day High 50 Minutes 27723 3. Hyperlipidemia (E78.5: Hyperlipidemia, unspecified) continue statin Ordered: Basic Metabolic Panel CBC w/ Auto Diff eGFR Path. Review [facility] Care/Day High 50 Minutes 63267 [facility] Care/Day High 50 Minutes 53985 4. Anemia (D64.9: Anemia, unspecified) hgb is stable post transfusion at 7.6 since patient is stable, will start heparin prophylaxis Ordered: Basic Metabolic Panel CBC w/ Auto Diff eGFR Path. Review [facility] Care/Day High 50 Minutes 67130 [facility] Care/Day High 50 Minutes 12876 5. 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 Review [facility] Care/Day High 50 Minutes 12856 [facility] Care/Day High 50 Minutes 63765 6. Stage 3 chronic kidney disease (N18.30: Chronic kidney disease, stage 3 unspecified) stable continue to monitor Ordered: Basic Metabolic Panel CBC w/ Auto Diff eGFR Path. Review [facility] High 50 Minutes 54196 [facility] Care/Day High 50 Minutes 25410 7. Coronary artery disease (I25.10: Atherosclerotic heart disease of [place] coronary artery withoutangina pectoris) overall stable continue plavix Ordered: Basic Metabolic Panel CBC w/ Auto Diff eGFR Path. Review [facility] Care/Day High 50 Minutes 99352 [facility] Care/Day High 50 Minutes 03560 8. Tobacco abuse (Z72.0: Tobacco use) nicotine patch Ordered: Basic Metabolic Panel CBC w/ Auto Diff eGFR Path. Review [facility] Care/Day High 50 Minutes 71212 [facility] Care/Day High 50 Minutes 21104 Orders: acetaminophen-oxycodone, 2 tab(s), Tab, Oral, [id number], Routine, Start date 02/16/24 14:00:00 EDT heparin, [...] no adenopathy, no tenderness (more content not included)...[facility] HospitalComment on above:Result Comment: Electronically Signed By: Marisela HERRERA, Elan Humphrey.br\Date and Time Signed: 02/16/24 13:30 [id number] NotePath ReviewPeripheral smear evaluation: - Moderate microcytic and hypochromic anemia with anisopoikilocytosis. - White blood cell and Platelet: Unremarkable. Comment: Recommend clinical correlation and rule out iron deficiency anemia. CPT: 95850 Moncho Blood MD 02/21/2024 12:59:29 EDT *NA* (02/16/24 6:12 AM)[facility] Danielle 09-12-2024 NoteProgress Note-Physician Assessment/Plan Goal: 1. [...] Diff [facility] Hospital Care/Day High 50 Minutes 02083 2. Essential hypertension (I10: Essential (primary) hypertension) good control continue current medications Ordered: Basic Metabolic Panel CBC w/ Auto Diff [facility] Care/Day High 50 Minutes 96704 3. Hyperlipidemia (E78.5: Hyperlipidemia, unspecified) statin Ordered: Basic Metabolic Panel CBC w/ Auto Diff [facility] Care/Day High 50 Minutes 84305 4. Anemia (D64.9: Anemia, unspecified) hgb has remained stable since transfusion hgb is 7.7. i thought it should be higher than than considering that he received 2 units of PRBC. Ordered: Basic Metabolic Panel CBC w/ Auto Diff [facility] Care/Day High 50 Minutes 09955 5. 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 (E11.42: Type 2 diabetes mellitus with diabetic polyneuropathy) BGL is poorly controlled diabetic diet increase lantus to 25 units QHS accucheck achs Ordered: Basic Metabolic Panel CBC w/ Auto Diff [facility]/Day High 50 Minutes 53422 6. Stage 3 chronic kidney disease (N18.30: Chronic kidney disease, stage 3 unspecified) overall stable, but noted mild increase in creatinine today contiue to monitor Ordered: Basic Metabolic Panel CBC w/ Auto Diff [facility] Care/Day High 50 Minutes 04759 7. Coronary artery disease (I25.10: Atherosclerotic heart disease of [place] coronary artery withoutangina pectoris) Plavix for secondary prophylaxis Ordered: Basic Metabolic Panel CBC w/ Auto Diff [facility] Care/Day High 50 Minutes 41305 8. Tobacco abuse (Z72.0: Tobacco use) nicotine patch Ordered: Basic Metabolic Panel CBC w/ Auto Diff [facility] Care/Day High 50 Minutes 67846 Orders: insulin glargine, 25 unit(s), Injection-Insulin, SubCutaneous, [...] Hct: 22.2 % Low (more content not included)...[facility] HospitalComment on above:Result Comment: Electronically Signed By: Marisela HERRERA, Elan Humphrey.nile\Date and Time Signed: 02/15/24 13:28 [id number] NoteInterdisciplinary Note - PT PT Evaluation completed [...] [facility] NoteProgress Note-Physician Assessment/Plan 1. 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 due to poor pain control, I discontinued IV morphine and switched to IV dilaudid PT/OT appreciate Vascular team recommendations Ordered: [facility] Care/Day High 50 Minutes 99395 2. Essential hypertension (I10: Essential (primary) hypertension) Better compared to yesterday. continue current management currently on lasix, losartan, metoprolol and imdur. seems to be too much BP meds since BP is about 120s. continue to monitor BP. Ordered: [facility] Care/Day High 50 Minutes 00959 3. Hyperlipidemia (E78.5: Hyperlipidemia, unspecified) continue statin Ordered: [facility] Care/Day High 50 Minutes 85206 4. Anemia (D64.9: Anemia, unspecified) Acute on chronic anemia due to surgical intervention hgb has remained stable since transfusion continue to monitor h and h Ordered: [facility] Care/Day High 50 Minutes 02726 5. 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 continue lantus at current dose continue Jardiance and Glimipiride Ordered: [facility] Care/Day High 50 Minutes 00775 6. Stage 3 chronic kidney disease (N18.30: Chronic kidney disease, stage 3 unspecified) possible due to complication of DM. monitor renal function. creatinine at baseline of 1.9. needs out patient follow up for Nephro recommendation 7. Coronary artery disease (I25.10: Atherosclerotic heart disease of [place] coronary artery withoutangina pectoris) continue plavix and asa as ordered Orders: acetaminophen-oxycodone, 1 tab(s), Tab, Oral, [id number], Routine, Start date 02/13/24 13:00:00 EDT furosemide, [...] Extremities: right BKA Debbie (more content not included)...[facility] HospitalComment on above: Result Comment: Electronically Signed By: Marisela HERRERA, Elan Humphrey.br\Date and Time Signed: 02/14/24 09:57 [id number] NoteProgress Note-Physician Assessment/Plan 1. 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 appreciate additional recommendation from Vascular team Ordered: [facility] Care/Day High 75 Minutes 49816 2. Essential hypertension (I10: Essential (primary) hypertension) BP on the low side today unsure if this is related to ?Anemia hold Losartan monitor BP, if still low, will bolus. Ordered: [facility] Care/Day High 75 Minutes 98376 3. Hyperlipidemia (E78.5: Hyperlipidemia, unspecified) statin Ordered: [facility] Care/Day High 75 Minutes 33371 4. Anemia (D64.9: Anemia, unspecified) Acute on chronic anemia. acute loss due to post op blood loss transfused 2 units of PRBC today. continue to monitor will hold asa and plavix for now and resume when Anemia improves or stabilized Also hold off on anticoagulation until anemia stabilizes can do scd on left leg Ordered: [facility] Care/Day High 75 Minutes 52707 5. 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 (E11.42: Type 2 diabetes mellitus with diabetic polyneuropathy) poorly controlled diabetic diet continue glimipiride, lantus and januvia Monitor BGL and treate with sliding scale as needed Ordered: [facility] Care/Day High 75 Minutes 60932 Orders: acetaminophen-oxycodone, 1 tab(s), Tab, Oral, [id number]-MI, Routine, Start date 02/13/24 13:00:00 EDT amitriptyline, [...] He is now interested in going to [facility] to get PT to enable [...] Back: No tenderness, Luzmaria (more content not included)...[facility] HospitalComment on above:Result Comment: Electronically Signed By: Marisela HERRERA, Elan Humphrey.nile\Date and Time Signed: 02/13/24 12:25 [id number] NoteHistory and Physical History of Present Illness [...] mg/dL High (02/12/24 17:15:00) POC Device SN: [id number] (02/12/24 17:15:00) POC User ID: [id number] (02/12/24 17:15:00) POC Username: POC Username (02/12/24 [...] a day (at bedti (more content not included)...[facility] HospitalComment on above:Result Comment: Electronically Signed By: Marisela HERRERA, Elan Robbins\.br\Date and Time Signed: 02/12/24 18:34 [id number] Evaluation + Plan note* Assessment & Plan Note - Mike Montes MD - 01/18/2024 9:04 AM EDTAssociated Problem(s): Cigarette smoker Counseled him on smoking cessation at length. He is willing to quit. T [facility]08-15-2024 Miscellaneous Notes* Assessment & Plan Note - Mike Montes MD - 01/18/2024 9:04 AM EDTAssociated Problem(s): Cigarette smoker Counseled him on smoking cessation at length. He is willing to quit. 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 Will do it here at [place]. 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 Will do it here at [place]. [facility]08-15-2024 History of Present illness Narrative* [...] control exposed bone. The patient and his trimming cutter are sending him for below-knee amputation. We [...] mg total) by mouth in the morning. [employer] DELJunk4Junk PLUS LANCET 33 gauge misc Inject 1 [...] Critical limb ischemia of right lower extremity ([facility]) Diabetes mellitus type 2, controlled ([facility]) GERD (gastroesophageal reflux disease) Hyperlipidemia Hypertension Past Surgical History: Past Surgical History: Procedure Laterality Date AMPUTATION FOOT / TOE Right 09/29/2023 APPENDECTOMY BYPASS ARTERY FEMORAL POPLITEAL Right 11/08/2023 Performed by Mike Montes MD at [facility] SPECIAL PROC CARDIAC CATHETERIZATION x4 heart stents COLONOSCOPY PROSTATE SURGERY SPINE SURGERY Vascular Invasive Right lower extremity angiogram with intervention/stent Right 11/07/2023 Performed by Mike Montes MD at [facility] CARDIAC CATH LABS Social and Family History: [...] below-knee amputation. Will do it here at [place]. Myra was seen today for angioplasty rle follow up - procedure at [facility]. yolanda and critical limb ischemia of right lower extremity with gangre. 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 While intending to generate a timely document that accurately reflects the content of the visit, no guarantee can be provided that every grammatical or spelling mistake has been or will be identified or corrected. Thank you for your understanding. documented in this encounterCincinnati [facility]08-15-2024 Instructions* Patient Instructions* Mike Montes MD - 01/18/2024 8:50 AM EDT Are You Ready To Kick The Habit? Free Tobacco Cessation Resources [facility] Services [facility] Centers provide all employees with free tobacco cessation services that include: Counseling to understand nicotine addiction Education about medications that can help you successfully quit Assistance with developing a plan to quit Call to set up an individual appointment or find out when group classes will be held: [facility]: [phone] [facility]: [phone] [facility]: [phone] [facility]: [phone] Quit Smoking Action Plan and Resources [facility] offers an eight-week, online smoking cessation plan to all [facility] employees, regardless of whether [place] is your medical insurance provider. Go to [email or web address]/employeewellness and click the Health Risk Assessment and Resources link to get started. In the [employer] menu, click Action Plans instead of Health Risk Assessment to access the Quit Smoking Action Plan. Additional smoking cessation resources are also available to all [facility] employees on the [employer] web page at www.[employer]uz[employer]/quitsmoking. [place] Tobacco Cessation Program If [place] is your medical insurance provider, there are more free resources available to you, including: No copays or deductibles on local tobacco cessation counseling services to help you quit Prescription assistance for tobacco cessation medications to help you quit For details about the tobacco cessation program available to [place] members, go to www.[employer].Gizmo5 (Search: Tobacco Cessation Program). [place] Tobacco Quit Line 5-827-ILBJ-NOW ( ) is a toll-free, telephonic service that helps [place] residents quit smoking and using tobacco. It is staffed by experts who tailor a quit plan for you and provide you with advice. [place] Tobacco Quit Line 5-742-DTQY-NOW ( ) is a toll-free, telephonic service [...] and resources to help you quit tobacco: [place] [employer]--www.cancer.org/healthy/stayawayfromtobacco [place] Heart Association--www.heart.org (Search: Quit Smoking) Centers for Disease Control and Prevention--www.cdc.gov/tobacco [place] Lung Association--www.lungusa.org documented in this encounterUniversity Hospitals Health SystemCargomatic [id number] NotePatient Education - Text [place], [place] Cardiovascular PCI DISCHARGE INSTRUCTIONS Diet: ? [...] for any reason without talking to your pad machine operator Site Care: ? Do not [...] you are interested in smoking cessation, contact [facility] at [phone], ext. [phone]. ? In the event you are unable to reach your physician, please call Rosa at [phone] andthe aluminum hydroxide process operator will assist you. Seek Medicare Care [...] your urine or stool ? 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 He has some residual tibial occlusive disease. I discussed with him doing right lower extremity angiogram and intervention. [facility]. 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 He has some residual tibial occlusive disease. I discussed with him doing right lower extremity angiogram and intervention. [facility]. documented in this encounterCincinnati [facility]07-18-2024 History of Present illness Narrative* [...] Critical limb ischemia of right lower extremity ([facility]) Diabetes mellitus type 2, controlled ([facility]) GERD (gastroesophageal reflux disease) Hyperlipidemia Hypertension Past Surgical History: Past Surgical History: Procedure Laterality Date AMPUTATION FOOT / TOE Right 09/29/2023 APPENDECTOMY BYPASS ARTERY FEMORAL POPLITEAL Right 11/08/2023 Performed by Mike Montes MD at [facility] SPECIAL PROC CARDIAC CATHETERIZATION x4 heart stents COLONOSCOPY PROSTATE SURGERY SPINE SURGERY Vascular Invasive Right lower extremity angiogram with intervention/stent Right 11/07/2023 Performed by Mike Montes MD at [facility] CARDIAC CATH LABS Social and Family History: [...] [place] [facility]. Diagnoses and all orders for [...] your understanding. documented in this encounterProMedica Health [id number] History of Present illness Narrative* Guero Chacon Anel, DO - 11/30/2023 11:10 PM EDT Patient Name: Myra Pickard Date of : 1965 Date of Service: 11/30/2023 Facility: [facility]IC Type of Visit: Skilled Visit Subjective yMra Pickard is a 58 y.o. male seen [...] Exam Vitals reviewed. Exam conducted with a paint trimmer pipe bowls present (). Constitutional: General: He is not [...] ischemia of right lower extremity with gangrene ([facility]) 2. 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 ([facility]) 3. Delayed surgical wound healing of foot [...] BY: Guero Tam DO documented in this encounterCincinnati [facility]06-27-2024 Evaluation + Plan note* Assessment & Plan Note - Mike Montes MD - 11/30/2023 9:19 AM EDT Associated Problem(s): Cigarette smoker motivated to quit Counseled on smoking cessation for at least 3 minutes [facility]06-27-2024 Miscellaneous Notes* Assessment & Plan Note - Mike Montes MD - 11/30/2023 9:19 AM EDTAssociated Problem(s): Cigarette smoker motivated to quit Counseled on smoking cessation for at least 3 minutes documented in this encounterCincinnati Children's Hospital [facility] Center06-27-2024 History of Present illness Narrative* [...] ischemia of right lower extremity with gangrene ([facility]) Cigarette smoker motivated to quit Plan Plan [...] Mike Montes MD, BG documented in this encounterCincinnati Children's Hospital Medical Center06-27-2024 Instructions* Patient Instructions* Mike Montes MD - 11/30/2023 8:50 AM EDT Are You Ready To Kick The Habit? Free Tobacco Cessation Resources [facility] Tobacco Treatment Center Services [facility] Tobacco Treatment Centers provide all employees with free tobacco cessation services that include: Counseling to understand nicotine addiction Education about medications that can help you successfully quit Assistance with developing a plan to quit Call to set up an individual appointment or find out when group classes will be held: [facility]: [phone] [facility]: [phone] [facility]: [phone] [facility]: [phone] Quit Smoking Action Plan and Resources [facility] offers an eight-week, online smoking cessation plan to all [facility] employees, regardless of whether [place] is your medical insurance provider. Go to [email or web address] and click the Health Risk Assessment and Resources link to get started. In the Mhvon2Cupkdp menu, click Action Plans instead of Health Risk Assessment to access the Quit Smoking Action Plan. Additional smoking cessation resources are also available to all [facility] employees on the Sabdw[employer]Jhspmq web page at [email or web address]. [place] Tobacco Cessation Program If [place] is your medical insurance provider, there are more free resources available to you, including: No copays or deductibles on local tobacco cessation counseling services to help you quit Prescription assistance for tobacco cessation medications to help you quit For details about the tobacco cessation program available to [place] members, go to www.Iron.iocare.com (Search: Tobacco Cessation Program). [place] Tobacco Quit Line 9-257-WWHK-NOW ( ) is a toll-free, telephonic service that helps [place] residents quit smoking and using tobacco. It is staffed by experts who tailor a quit plan for you and provide you with advice. [place] Tobacco Quit Line 6-399-MCFF-NOW ( ) is a toll-free, telephonic service [...] and resources to help you quit tobacco: [place] Cancer Society--www.cancer.org/healthy/stayawayfromtobacco [place] Heart Association--www.heart.org (Search: Quit Smoking) Centers for Disease Control and Prevention--www.cdc.gov/tobacco [place] Lung Association--www.lungusa.org documented in this encounterGifford Medical CenterOverture Networks [id number] History of Present illness Narrative* Guero Tam, DO - 11/24/2023 6:57 PM EDT Patient Name: Myra iPckard Date of : 1965 Date of Service: 11/24/2023 Facility: PSYCHIATRIC Type of Visit: Skilled Visit Subjective Myra Pickard is a 58 y.o. male seen today at [facility] facility for [facility] visit. Myra is in therapy. He is hoping to be allowed to wt bear on his right foot. His called the trimming cutter to ask to be allowed to wt [...] Exam Vitals reviewed. Exam conducted with a paint trimmer pipe bowls present (). Constitutional: General: He is not [...] Status post partial amputation of right foot ([facility]) 2. Other abnormalities of gait and mobility 3. Leg edema 4. Primary hypertension 5. Hypotension due to drugs 6. Critical limb ischemia of right lower extremity with gangrene ([facility]) 7. Diabetic neuropathy His leg edema is [...] BY: Guero Tam DO documented in this encounterCincinnati Children's [facility] Center06-17-2024 Evaluation + Plan note Future Scheduled Tests Radiology* US PVR Lower EXT Complete Bilat [facility]20[facility]23 [facility] Miscellaneous Notes* Telephone Encounter - Ashley Colon - 11/10/2023 10:05 AM EDT LMVM for patient's to call back with her Date of so I can update his billing info. documented in this encounterCincinnati Children's Hospital Medical Center06-07-2024 Telephone encounter Note* Telephone Encounter - Ashley Colon - 11/10/2023 10:05 AM EDT LMVM for patient's to call back with her Date of so I can update his billing info. [facility]06-04-2024 History of Present illness Narrative* Guero Tam DO - 11/07/2023 11:59 PM EDT Patient Name: Myra Pickard Date of : 1965 Date of Service: 11/07/2023 Facility: PSYCHIATRIC Type of Visit: Skilled Visit Subjective Myra [...] Assessment / Plan 1. Peripheral arterial disease ([facility]) 2. Delayed surgical wound healing of foot amputation stump ([facility]) 3. Other abnormalities of gait and mobility 4. Status post partial amputation of right foot ([facility]) 5. Pressure ulcer of right ankle, stage 3 ([facility]) 6. Type 2 diabetes mellitus with stage 4 chronic kidney disease, without long- term current use of insulin ([facility]) I checked his medications and he is on Trulicity so he doesn't need Januvia. F/U with vascular surgeon. May need further intervention in leg. Continue therapy to reach MMI. All medications reviewed and are medically necessary. ELECTRONICALLY SIGNED BY: Guero Tam DO documented in this encounterCincinnati Children's Hospital Medical Center05-31-2024 History of Present illness Narrative* Guero Tam DO - 11/03/2023 11:59 PM EDT Patient Name: Myra Pickard Date of : 1965 Date of Service: 11/03/2023 Facility: PSYCHIATRIC Type of Visit: Skilled Visit Subjective Myra [...] Exam Vitals reviewed. Exam conducted with a paint trimmer pipe bowls present (). Constitutional: General: He is not [...] Status post partial amputation of right foot ([facility]) 2. Pressure ulcer of right ankle, stage 3 (CMS-HCC) 3. Other abnormalities of gait and mobility 4. Delayed surgical wound healing of foot amputation stump (CMS-HCC) Await results of CT angiogram. May need vascular intervention. Continue therapy to reach maximum improvement. Continue other orders as directed. ELECTRONICALLY SIGNED BY: Guero Tam, DO documented in this encounterUniversity Hospitals Health SystemCargomatic [id number] History of Present illness Narrative* Guero Ines DO Anel - 10/25/2023 11:59 PM EDT Patient Name: Myra Pickard Date of : 1965 Date of Service: 10/25/2023 Facility: PSYCHIATRIC Type of Visit: Skilled Visit Subjective Myra [...] Exam Vitals reviewed. Exam conducted with a paint trimmer pipe bowls present ([facility] Constitutional: General: He is not [...] Status post partial amputation of right foot ([facility]) 2. Osteomyelitis of right foot, unspecified type ([facility]) 3. Muscle weakness (generalized) 4. Other abnormalities of gait and mobility 5. Chronic obstructive pulmonary disease, unspecified COPD type ([facility]) 6. Peripheral arterial disease I'll review medication [...] BY: Guero Tam DO documented in this encounterGifford Medical CenterT-System05-21-2024 NoteSinus tachycardia Rightward axis Poor anterior R wave progression QTc 481 [id number] History of Present illness Narrative* Raulito Inman [...] exam, discussion and plan. documented in this encounterMercy Memorial Hospital Work Phone: 1(738) 444-266105-21-2024 Instructions* Patient Instructions* Rosemary Benavides LPN - [...] from a cardiac standpoint documented in this encounterMercy Memorial Hospital Work Phone: 1(944) 248-770405-15-2024 Miscellaneous Notes* Telephone Encounter - Cameron Mg LPN - 10/18/2023 9:30 AM EDT Physician requested stat testing, patient unable to complete testing in [place] area> Spoke to Dr. Montes, patient can have testing and f/u at [place]. [place] staff aware. Faxed orders to [place] office at [phone].Patient unable to complete testing at times that were offered, requested a Monday or Monday. documented in this encounterCincinnati Children's Hospital Medical Center05-15-2024 Telephone encounter Note* Telephone Encounter - Cameron Mg LPN - 10/18/2023 9:30 AM EDT Physician requested stat testing, patient unable to complete testing in [place] area> Spoke to Dr. Montes, states patient can have testing and f/u at [place] [facility]. [place] office staff aware. Faxed orders to [place] office at [phone].Patient unable to complete testing at times that were offered, requested a Monday or Monday. [facility]05-15-2024 Evaluation + Plan note* Assessment & Plan Note - Mike Montes MD - 10/18/2023 8:52 AM EDTAssociated Problem(s): Heavy tobacco smoker >10 cigarettes per day Counseled in length willing to quit. [facility]05-15-2024 Miscellaneous Notes* Assessment & Plan [...] AM Modules accepted: Orders documented in this encounterCincinnati Children's Hospital Medical Center05-15-2024 Evaluation + Plan note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 ([facility]) PVR and CTA abdomen and plevis with runoff [facility]05-15-2024 History of Present illness Narrative* [...] to get some of his testing from [facility] in [place]. I looked at a stress test andbasic [...] circulation - [facility] - [place], [place] Heavy tobacco smoker >10 cigarettes per [...] you for your understanding. documented in this encounterCincinnati Children's Hospital Medical Center05-15-2024 Instructions* Patient Instructions* Mike Montes MD - 10/18/2023 8:30 AM EDT Are You Ready To Kick The Habit? Free Tobacco Cessation Resources [facility] Tobacco Treatment Center Services [facility] Tobacco Treatment Centers provide all employees with free tobacco cessation services that include: Counseling to understand nicotine addiction Education about medications that can help you successfully quit Assistance with developing a plan to quit Call to set up an individual appointment or find out when group classes will be held: [facility]: [phone] [facility]: [phone] [facility]: [phone] [facility]: [phone] Quit Smoking Action Plan and Resources [facility] offers an eight-week, online smoking cessation plan to all [facility] employees, regardless of whether [place] is your medical insurance provider. Go to [email or web address] and click the Health Risk Assessment and Resources link to get started. In the Unqpm9Ssuwvc menu, click Action Plans instead of Health Risk Assessment to access the Quit Smoking Action Plan. Additional smoking cessation resources are also available to all [facility] employees on the [employer] web page at www.IPtronics A/S.Gizmo5/quitsmoking. [place] Tobacco Cessation Program If [place] is your medical insurance provider, there are more free resources available to you, including: No copays or deductibles on local tobacco cessation counseling services to help you quit Prescription assistance for tobacco cessation medications to help you quit For details about the tobacco cessation program available to [place] members, go to www.IPtronics A/S.Gizmo5 (Search: Tobacco Cessation Program). [place] Tobacco Quit Line 3-986-JBQI-NOW ( ) is a toll-free, telephonic service that helps [place] residents quit smoking and using tobacco. It is staffed by experts who tailor a quit plan for you and provide you with advice. [place] Tobacco Quit Line 4-124-XYJX-NOW ( ) is a toll-free, telephonic service [...] and resources to help you quit tobacco: [place] Cancer Society--www.cancer.org/healthy/stayawayfromtobacco [place] Heart Association--www.heart.org (Search: Quit Smoking) Centers for Disease Control and Prevention--www.cdc.gov/tobacco [place] Lung Association--www.lungusa.org documented in this encounterCincinnati [facility]'s [facility] Center05-15-2024 Note* Addendum Note - Mike Montes MD - 10/18/2023 8:30 AM EDTAddended by: MIKE MONTES on: 10/18/2023 09:00 AM Modules accepted: Orders [facility] [employer] [id number] History of Present illness Narrative* Guero Tam DO - 10/17/2023 11:59 PM EDT Patient Name: Myra Pickard Date of : 1965 Date of Service: 10/17/2023 Facility: PSYCHIATRIC Type of Visit: Skilled Visit Subjective Myra [...] 97% Physical Exam Exam conducted with a paint trimmer pipe bowls present ([facility] Constitutional: General: He is not [...] Status post partial amputation of right foot ([facility]) 2. Critical limb ischemia of right lower extremity with gangrene ([facility]) 3. Type 2 diabetes mellitus with stage 4 chronic kidney disease, without long- term current use of insulin ([facility]) I'm going to add duloxetine 60 mg daily for diabetic neuropathy. Continue therapy. All medications reviewed and are medically necessary. F/U with specialists as directed. ELECTRONICALLY SIGNED BY: Guero Tam DO documented in this encounterGifford Medical CenterOverture Networks [id number] History of Present illness Narrative* Guero Tam DO - 10/10/2023 11:33 PM EDT Patient Name: Myra Pickard Date of : 1965 Date of Service: 10/10/2023 Facility: PSYCHIATRIC Type of Visit: Skilled Visit Subjective Myra Pickard is a 58 y.o. male seen today at [facility] facility for therapy visit. Myra is having diarrhea. He had 5 episodes in last day and had an accident in bed. He doesn't haveany pain, blood or fever. There isn't a foul smell reported like one would expect with C. dif. He is on levofloxacin for osteomyelitis. He has an appointment with the trimming cutter on Monday. He said his colonoscopy was [...] 98% Physical Exam Exam conducted with a paint trimmer pipe bowls present (Lefty Rosas MSIII). Constitutional: General: He [...] 2. Other acute osteomyelitis of right foot ([facility]) 3. Status post partial amputation of right foot ([facility]) 4. Chronic obstructive pulmonary disease, unspecified COPD type ([facility]) 5. Abscess of right foot Will try immodium 2mg 2 po Q6 hrs prn for diarrhea. May need to check for C. dif Continue therapy. F/U with trimming cutter on Monday. All medications reviewed and are medically necessary. May need to adjust diabetic medications in future. ELECTRONICALLY SIGNED BY: Guero Tam DO documented in this encounterGifford Medical CenterT-System05-03-2024 History of Present illness Narrative* Guero Tam DO - 10/06/2023 4:49 PM EDT Patient Name: Myra Pickard Date of : 1965 Date of Service: 10/06/2023 Facility: PSYCHIATRIC Type of Visit: Admission H&P Subjective Myra Pickard is a 58 y.o. male seen today at [facility] facility for admission H&P. Myra presents to PSYCHIATRIC for therapies following hospitalization for sepsis due [...] 96% Physical Exam Exam conducted with a paint trimmer pipe bowls present ( present). Constitutional: General: He is [...] Status post partial amputation of right foot ([facility]) 3. Type 2 diabetes mellitus with stage 4 chronic kidney disease, without long- term current use of insulin ([facility]) 4. Atherosclerosis of [place] coronary artery of [place] heart without angina pectoris 5. Bacterial sepsis ([facility]) 6. Other acute osteomyelitis of right foot ([facility]) 7. Chronic obstructive pulmonary disease, unspecified COPD type ([facility]) 8. Cigarette smoker 9. BPH with obstruction/lower urinary tract symptoms 10. Gastroesophageal reflux disease, unspecified whether esophagitis present 11. Restless leg syndrome 12. Hyperlipidemia, unspecified hyperlipidemia type 13. Carpal tunnel syndrome, unspecified laterality 14. Heart failure, unspecified HF chronicity, unspecified heart failure type ([facility]) Admit to PSYCHIATRIC for therapies. Full code. Continue medications from hospital. F/U with specialists as directed. Good rehab potential. Planning on discharge to home when able. ELECTRONICALLY SIGNED BY: Guero Tam DO documented in this encounterGifford Medical CenterT-System02-08-2024 Hospital Discharge instructions Follow Up Care 07/13/2023 12:04:02 With:SOLEDAD HERRERA, Yeyo Blum, URL Address: [address] [place], [place] [id number]- When: Unknown [facility] 01-22-2024 Evaluation note* Encounter Date Diagnosis Assessment Notes Treatment Notes Treatment Clinical Notes Jun, Hyperlipidemia (ICD-10 - E78.5) [facility] [employer] Other 12-29-2023 Hospital Discharge instructions Patient Education [...] urethra. Follow these instructions at home: Take zxlt-qxk-vtigjmr and prescription medicines only as told by [...] provider. Document Revised: 12/08/2021 Document Reviewed: 12/08/2021 [employer] Patient Education 2022 WibiData. Follow Up Care 06/01/2023 14:05:36 With:SOLEDAD HERRERA, Yeyo Blum, URL Address: [address] [place] [id number]- When: Unknown [facility] 12-12-2023 Evaluation note* Encounter Date Diagnosis Assessment Notes Treatment Notes Treatment Clinical Notes May, Type 2 diabetes bobby itus with circulatory disorder (ICD-10 - E11.59) [facility] Other 11-24-2023 Evaluation note* Encounter Date Diagnosis Assessment Notes Treatment Notes Treatment Clinical Notes Apr, Diabetic nephropathy (ICD-10 - E 11.21) [facility] Other 11-07-2023 Evaluation note* Encounter Date Diagnosis Assessment Notes Treatment Notes Treatment Clinical Notes Apr, Left arm pain (ICD-10 - M79.602) [facility] Other 11-02-2023 Evaluation note* Encounter Date Diagnosis [...] and to have his surgery as scheduled. [facility] Other 10-24-2023 Evaluation note* Encounter Date Diagnosis Assessment Notes Treatment Notes Treatment Clinical Notes Mar, Type 2 diabetes bobby itus with circulatory disorder (ICD-10 - E11.59) Mar,therosclerotic heart disease of [place] coronary artery without angina pectoris (ICD-10 - I25.10) [facility] Other 10-11-2023 Evaluation note* Encounter Date Diagnosis [...] he not wait as long to go [facility] ER if something like this were to happen in the future as states she had to have nurses from her work place come assess him and talk him into going. He and voiced understanding. Mar,UTI (urinary tract infection) (ICD-10 - N39.0) No records available as of yet from [facility]. He was found to have developed the [...] to continue to montior this at home. [employer] Other [id number] Note [id number] 02-14-2023 Hospital Discharge instructions Patient [...] including vitamins, herbs, eye drops, creams, and yfwm-pmw-xrcaxiw medicines. Any problems you or family members [...] provider tells you to take them. Taking qvey-gmx-dkedsdx medicines, vitamins, herbs, and supplements. Surgery safety [...] provider. Document Revised: 02/15/2022 Document Reviewed: 02/15/2022 [employer] Patient Education 2022 WibiData. [facility]08-28-2023 Hospital Discharge instructions Patient Education 01/30/2023 11:22:32 [...] including vitamins, herbs, eye drops, creams, and rwpw-hrq-smyafwm medicines. ?Whether you are or may be [...] provider. Document Revised: 02/02/2022 Document Reviewed: 12/25/2020 [employer] Patient Education 2022 WibiData. 01/30/2023 11:22:30 Cystoscopy Cystoscopy Cystoscopy is a [...] including vitamins, herbs, eye drops, creams, and vnzi-izh-rxtwhao medicines. Any problems you or family members [...] provider tells you to take them. Taking ztri-uim-bdkbjro medicines, vitamins, herbs, and supplements. Tests You [...] Follow these instructions at home: Medicines Take tuic-gsv-gysrzwn and prescription medicines only as told by [...] provider. Document Revised: 02/02/2022 Document Reviewed: 01/01/2021 [employer] Patient Education 2022 [employer]. Follow Up Care 11/23/2022 13:02:56 With:SOLEDAD HERRERA, Yeyo Blum, URL Address: [facility] [address] , [place] [phone] When: Unknown Comments:sched cysto/uros [facility] 08-15-2023 Evaluation note* Encounter Date Diagnosis Assessment Notes Treatment Notes Treatment Clinical Notes Jan, Diabetic nephropathy (ICD-10 - E 11.21) [facility] Other 06-29-2023 Evaluation note* Encounter Date Diagnosis [...] generated and reviewed. Nov,therosclerotic heart disease of [place] coronary artery without angina pectoris (ICD-10 - I25.10) Encouraged patient to follow with Cardiology as scheduled. [facility] Other 06-21-2023 Hospital Discharge instructions Patient Education [...] provider. Document Revised: 08/11/2021 Document Reviewed: 05/07/2021 [employer] Patient Education 2021 WibiData. Follow Up Care 09/14/2022 14:23:26 With:SOLEDAD HERRERA, Yeyo Blum, URL Address: [facility] [address] , [place] [address]- When: Unknown [facility] 05-05-2023 Evaluation note* Encounter Date Diagnosis Assessment Notes Treatment Notes Treatment Clinical Notes October, Erectile dysfunction , unspecified erectile dysfunction type (ICD-10 - N52.9) [facility] [employer] Other 04-19-2023 Evaluation note* Encounter Date Diagnosis Assessment Notes Treatment Notes Treatment Clinical Notes Sep, Type 2 diabetes bobby itus with circulatory disorder (ICD-10 - E11.59) [facility] Other 04-12-2023 Evaluation note* Encounter Date Diagnosis Assessment Notes Treatment Notes Treatment Clinical Notes Sep, Atherosclerotic hear t disease of [place] coronary artery without angina pectoris (ICD-10 - I25.10) Sep,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) [facility] Other 03-20-2023 Evaluation note* Encounter Date Diagnosis Assessment Notes Treatment Notes Treatment Clinical Notes Aug, Diabetic nephropathy (ICD-10 - E 11.21) [facility] Other 03-03-2023 Evaluation note* Encounter Date Diagnosis Assessment Notes Treatment Notes Treatment Clinical Notes Aug, Pain in right leg (ICD-10 - M79. 604) [facility] Other 03-02-2023 Evaluation note* Encounter Date Diagnosis Assessment Notes Treatment Notes Treatment Clinical Notes Aug, Pain in right leg (ICD-10 - M79. 604) [facility] Other 02-20-2023 Evaluation note* Encounter Date Diagnosis Assessment Notes Treatment Notes Treatment Clinical Notes Jul, Intractable episodic headache, unspecified headache type (ICD-10 - R51.9) [facility] Other 02-14-2023 Evaluation note* Encounter Date Diagnosis Assessment Notes Treatment Notes Treatment Clinical Notes Jul, Acute intractable he adache, unspecified headache type (ICD-10 - R51.9) [facility] Other 02-08-2023 Evaluation note* Encounter Date Diagnosis Assessment Notes Treatment Notes Treatment Clinical Notes Jul, Headache (ICD-10 - R51.9) [facility] Other 01-30-2023 Evaluation note* Encounter Date Diagnosis [...] medication and we will continue to monitor. [facility] Other 12-21-2022 Evaluation note* Encounter Date Diagnosis Assessment Notes Treatment Notes Treatment Clinical Notes May, Diabetic nephropathy (ICD-10 - E 11.21) [facility] Other 11-21-2022 Evaluation note* Encounter Date Diagnosis Assessment Notes Treatment Notes Treatment Clinical Notes Apr, Diabetic nephropathy (ICD-10 - E 11.21) [facility] Other 11-15-2022 Evaluation note* Encounter Date Diagnosis Assessment Notes Treatment Notes Treatment Clinical Notes Apr, Pain in right leg (ICD-10 - M79. 604) [facility] Other 10-18-2022 Evaluation note* Encounter Date Diagnosis Assessment Notes Treatment Notes Treatment Clinical Notes Mar, Diabetic nephropathy (ICD-10 - E 11.21) [facility] Other 09-13-2022 Evaluation note* Encounter Date Diagnosis Assessment Notes Treatment Notes Treatment Clinical Notes Feb, Hypertensive chronic kidney disease with stage 1 through stage 4 chronic kidney disease, or unspecified chronic kidney disease (ICD-10 - I12.9) [facility] Other 09-13-2022 Evaluation note* Encounter Date Diagnosis [...] Fagan as scheduled. Feb,therosclerotic heart disease of [place] coronary artery without angina pectoris (ICD-10 [...] is to continue to follow with the pad machine operator as scheduled. Feb,ain in right leg (ICD-10 [...] Noted upon review of blood work results. [facility] Other 08-19-2022 Evaluation note* Encounter Date Diagnosis Assessment Notes Treatment Notes Treatment Clinical Notes Jan, Diabetic nephropathy (ICD-10 - E 11.21) [facility] Other 08-17-2022 Evaluation note* Encounter Date Diagnosis Assessment Notes Treatment Notes Treatment Clinical Notes Jan, Diabetic nephropathy (ICD-10 - E 11.21) [facility] Other 07-21-2022 Evaluation note* Encounter Date Diagnosis Assessment Notes Treatment Notes Treatment Clinical Notes Dec, Diabetic nephropathy (ICD-10 - E 11.21) [facility] Other 06-22-2022 Evaluation note* Encounter Date Diagnosis Assessment Notes Treatment Notes Treatment Clinical Notes Nov, Diabetic nephropathy (ICD-10 - E 11.21) [facility] Other 05-23-2022 Evaluation note* Encounter Date Diagnosis Assessment Notes Treatment Notes Treatment Clinical Notes October, Diabetic nephropathy (ICD-10 - E 11.21) [facility] Other 05-17-2022 Evaluation note* Encounter Date Diagnosis [...] to attenuate CKD progression. Patient already on [id number] mg p.o. daily. Patient has minimal proteinuria. [...] 10 - E11.59) October,therosclerotic heart disease of [place] coronary artery without angina pectoris (ICD-10 - I25.10)Patient follows with Dr. Inman. For this October,therHe did quit smoking since July 2020 [facility] Other 05-16-2022 Evaluation note* Encounter Date Diagnosis Assessment Notes Treatment Notes Treatment Clinical Notes October, Hypertensive chronic kidney disease with stage 1 through stage 4 chronic kidney disease, or unspecified chronic kidney disease (ICD-10 - I12.9) October,tage 3 chronic kidney disease, unspecified whether stage 3a or 3b CKD (ICD-10 - N18.30) [facility] Other 05-06-2022 Evaluation note* Encounter Date Diagnosis Assessment Notes Treatment Notes Treatment Clinical Notes October, Pain in right leg (ICD-10 - M79. 604) October,ain in left leg (ICD-10 - M79.605) [facility] Other 04-20-2022 Evaluation note* Encounter Date Diagnosis Assessment Notes Treatment Notes Treatment Clinical Notes Sep, Diabetic nephropathy (ICD-10 - E 11.21) [facility] Other 04-19-2022 Evaluation note* Encounter Date Diagnosis Assessment Notes Treatment Notes Treatment Clinical Notes Sep, Anxiety (ICD-10 - F41.9) Sep,Hypertensive chronic kidney disease with stage 1 through stage 4 chronic kidney disease, or unspecified chronic kidney disease (ICD-10 - I12.9) [facility] Other 03-07-2022 Evaluation note* Encounter Date Diagnosis Assessment Notes Treatment Notes Treatment Clinical Notes Aug, Anxiety (ICD-10 - F41.9) [facility] Other 02-22-2022 Evaluation note* Encounter Date Diagnosis [...] 12 pound weight loss from last visit. [facility] Other 01-19-2022 Evaluation note* Encounter Date Diagnosis Assessment Notes Treatment Notes Treatment Clinical Notes Jun, Diabetic nephropathy (ICD-10 - E 11.21) [facility] Other Consult note Author Amina Fagan [facility] CenterNote Date/TimeMarch 2024 2:[place] [address] Nephrology Consult Note Signed Patient: Myra Pickard SR MR#: [id number] : 1965 Acct:[id number] Age/Sex: 59 / M Adm Date: 5 Loc: Room: [address] [place] [address] Type: ADM IN Attending Dr: Kevon Viera [...] reviewed 12 system review is negative today [facility] Medical History Chronic obstructive pulmonary disease, [...] mass Atrial fibrillation Atherosclerotic heart disease of [place] coronary artery with unspecified angina pectoris Anxiety Hx of exercise stress test Family history of premature CAD Reports mother had quadruple bypass at age of 45 Myocardial infarction mild Fibromyalgia Chronic back pain Sleep apnea Neuropathy Cataract Peripheral artery disease Hyperlipidemia Diabetes Hypertension Surgical History History of below-knee amputation of right lower extremity 02/2024 [facility] by Dr. Simon Hernández Vascular History of [...] 07/12/23[History Confirmed 08/11/24] flash glucose scanning reader ([employer] Jigar 2 [place]) #1 ea 12/28/23 [Rx Confirmed 08/11/24] flash [...] 32 gauge x 5/32 (Comfort EZ Pen Brackney) #100 ea 04/15/24 [Rx Confirmed 08/11/24] hydroxyzine [...] 25 Mg Tablet) 25 mg PO HS [facility] Stop: 08/11/25 21:59 Aspirin (Aspirin 81 Mg [...] 1,000 mls @ 125 mls/hr IV .Q8H [facility] Stop: 08/11/25 07:14 Last Admin: 08/11/24 11:51 Dose: 125 mls/hr Insulin Aspart (Insulin Aspart 300 Units/3 Ml) 0 units SUBCUT TID.WM.HS [facility]; Protocol Stop: 08/11/25 07:59 Last Admin: 08/11/24 13:40 Dose: Not Given Ipratropium Channahon (Ipratropium Channahon 0.5 Mg/2.5 Ml Vial.Neb) 0.5 mg INHALATION [...] 0.4 Mg Cap.Er.24h) 0.4 mg PO BID [facility] Stop: 08/11/25 08:59 Last Admin: 08/11/24 09:13 Dose: 0.4 mg Tizanidine HCl (Tizanidine 4 Mg Tablet) 4 mg PO QHS [facility] Stop: 08/11/25 21:59 Exam Physical Exam Vital [...] Appearance Clear Urine pH 5.5 Ur Specific Mobile 1.024 Urine Protein Negative Urine Glucose (UA) 500 H Urine Ketones Negative Urine Occult Blood Negative Urine Nitrite Negative Ur Leukocyte Esterase Negative Radiology Impressions Impressions - last 24 hours: Impressions Chest X-Ray 08/11/24 04:22 IMPRESSION: No acute process. Impression dictated by: Sudeep Lind M.D.08/11/2024 10:06 AM Dictation Location: [place] [address] 08/11/24 04:22 IMPRESSION: No acute [...] Sudeep Lind M.D.08/11/2024 10:06 AM Dictation Location: [place] [address] Any impression(s) listed above is documentation that [...] concern Documented By: Amina Fagan MD 08/11/24 0759 Signed By: <Electronically signed by Amina Fagan MD> 08/11/[address] [facility] Work Phone: [place] [address] Cardiology Consult Note Signed Patient: Myra Pickard SR MR#: [id number] : 1965 Acct:[id number] Age/Sex: 59 / M Adm Date: 5 Loc: 4 Room: [address] [place] [address] Type: ADM INOo Attending Dr: Abdullahi Canchola DO Copies to: DO Pascale Guzman MD, [facility] Abdullah[facility] Canchola, DO~ Cardiology HPI History of [...] post right below-knee amputation February 2024 in [place]. He has COPD followed by pulmonary medicine in [place]. 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 Other review of system was unremarkable [facility] Medical History Hypokalemia Hypocalcemia Hypomagnesemia Vitamin [...] mass Atrial fibrillation Atherosclerotic heart disease of [place] coronary artery with unspecified angina pectoris Anxiety Hx of exercise stress test Family history of premature CAD Reports mother had quadruple bypass at age of 45 Myocardial infarction mild Fibromyalgia Chronic back pain Sleep apnea Neuropathy Cataract Peripheral artery disease Hyperlipidemia Diabetes Hypertension Surgical History History of below-knee amputation of right lower extremity 02/2024 [facility] by Dr. Simon Hernández Vascular History of [...] flash glucose scanning reader (FreeStyle Jigar 2 [place]) #1 ea 12/28/23 [Rx Confirmed 10/10/24] flash [...] 32 gauge x 5/32 (Comfort EZ Pen Brackney) #100 ea 04/15/24 [Rx Confirmed 10/10/24] hydroxyzine [...] Lymph # (Auto) 2.0 2.0 (1.00-4.8) x10E3/uL [place] # (Auto) 0.8 0.9 H (0.0-0.8) x10E3/uL [...] RCA, nuclear stress test February 2024 in [place] was normal Plan: Continue aggressive risk factors modifications, tobacco cessation, dual antiplatelet therapy, high intensity statin Code(s): I25.10 - Atherosclerotic heart disease of [place] coronary artery without angina pectoris Documented By: Pascale Arnold MD, [facility] 5 0947 Signed By: 10/11/[address] [facility]Dis[facility] Author João Powell [facility] March 06, 2024 4:23pmNote Date/TimeOct2023 3:58pm[place] [address] Discharge Summary Signed Patient: Myra Pickard SR MR#: [id number] : 1965 Acct:[id number] Age/Sex: 58 / M Adm Date: 4 Loc: Room: [address] [place] [address]: João Powell MD Copies to: [...] diabeticneuropathy status post right BKA recently at [facility]. He presents today with episodes [...] Instructions: As directed (DME) FreeStyle Jigar 2 [place] Misc See Rx Instructions .ROUTE Qty: 1 [...] % (Auto) N/A, Lymph % (Auto) N/A, [place] % (Auto) N/A, Eos % (Auto) N/A, Baso % (Auto) N/A, Nucleat RBC Rel Count N/A, Neut # (Auto) N/A, Lymph # (Auto) N/A, [place] # (Auto) N/A, Eos # (Auto) N/A, [...] <Electronically signed by João Powell MD> 03/06/[address] [facility] Work Phone: Discharge summary Author Kevon Viera [facility] CenterNote Date/TimeMarch 2024 2:39pm[place] [address] Discharge Summary Signed Patient: Myra Pickard SR MR#: [id number] : 1965 Acct:[id number] Age/Sex: 59 / M Adm Date: 5 Loc: Room: [address] [place] [address]: Kevon Viera MD Copies to: [...] (DME) pen needle, diabetic [Comfort EZ Pen Brackney] 32 gauge x 5/32 needle See Rx [...] 100 5RF Rx Instructions: As directed (DME) OnavoStyle Jigar 2 Sensor Kit See Rx Instructions .Route Qty: 1 0RF Rx Instructions: As directed (DME) FreeStyle Jigar 2 [place] Misc See Rx Instructions .Route Qty: 1 [...] <Electronically signed by Kevon Viera MD> 08/13/[address] [facility] Work Phone: [place] [address] Discharge Summary Signed Patient: Myra Pickard MR#: [id number] : 1965 Acct:[id number] Age/Sex: 59 / M Adm Date: 5 Loc: 4 Room: 5A0133-[address]: Abdullahi Canchola DO Copies to: DO Abdullahi Guzman, ~ Providers Date of Discharge: 10/11/24 Discharging Provider: Abdullahi Canchola Primary Care Provider: Teresa Lynch Consults: 10/10/24 18:25 Consult to Cardiology Routine Comment: Consulting Provider: [facility] Reason For [...] (DME) pen needle, diabetic [Comfort EZ Pen Brackney] 32 gauge x 5/ needle See Rx [...] Instructions: As directed (DME) FreeStyle Jigar 2 [place] Misc See Rx Instructions .Route Qty: 1 0RF Rx Instructions: As directed Discontinued valsartan-hydrochlorothiazide [Diovan HCT] 160-12.5 mg tablet 1 tab PO DAILY Follow Up: [facility] [Outside] (Once Insurance approves outpatient Stress [...] % (Auto) 58.3, Lymph % (Auto) 25.5, [place] % (Auto) 10.9, Eos % (Auto) 4.0, Baso % (Auto) 1.3, Nucleat RBC Rel Count 0.1, Neut # (Auto) 4.6, Lymph # (Auto) 2.0, [place] # (Auto) 0.9 H, Eos # (Auto) [...] Neut % (Auto) 61.8, Lymph % (Auto)23.4, [place] % (Auto) 9.5, Eos % (Auto) 4.0, Baso % (Auto) 1.3, Nucleat RBC Rel Count 0.2, Neut # (Auto) 5.3, Lymph # (Auto) 2.0, [place] # (Auto) 0.8, Eos # (Auto) 0.3, [...] 10/11/24 13 40 Signed By: 10/11/[address] [facility] CenterDis[facility] summary Author Abdullahi Canchola [facility] CenterNote Date/TimeMay 2024 1:58pm[place] [address] Discharge Summary Signed Patient: Myra Pickard MR#: [id number] : 1965 Acct:[id number] Age/Sex: 59 / M Adm Date: 5 Loc: Room: [address] [place] [address]: Abdullahi Canchola DO Copies to: DO Abdullahi Guzman DO~ Providers Date of Discharge: 10/11/24 Discharging Provider: Abdullahi Canchola Primary Care Provider: Teresa Lynch Consults: 10/10/24 18:25 Consult to Cardiology Routine Comment: Consulting Provider: [facility], [facility] Reason [...] (DME) pen needle, diabetic [Comfort EZ Pen Brackney] 32 gauge x 5/32 needle See Rx [...] Instructions: As directed (DME) FreeStyle Jigar 2 [place] Misc See Rx Instructions .Route Qty: 1 0RF Rx Instructions: As directed Discontinued valsartan-hydrochlorothiazide [Diovan HCT] 160-12.5 mg tablet 1 tab PO DAILY Follow Up: [facility] [Outside] (Once Insurance approves outpatient Stress Test [...] % (Auto) 58.3, Lymph % (Auto) 25.5, [place] % (Auto) 10.9, Eos % (Auto) 4.0, Baso % (Auto) 1.3, Nucleat RBC Rel Count 0.1, Neut # (Auto) 4.6, Lymph # (Auto) 2.0, [place] # (Auto) 0.9 H, Eos # (Auto) [...] Neut % (Auto) 61.8, Lymph % (Auto)23.4, [place] % (Auto) 9.5, Eos % (Auto) 4.0, Baso % (Auto) 1.3, Nucleat RBC Rel Count 0.2, Neut # (Auto) 5.3, Lymph # (Auto) 2.0, [place] # (Auto) 0.8, Eos # (Auto) 0.3, [...] signed by Abdullahi Canchola DO> 10/11/[address] [facility] Work Phone: Evaluation + Plan note Future Appointments Appointment Date:12/21/2022 11:00:00 AM Scheduled Provider: Location:[facility] Appointment Type:URO Nurse Visit Appointment Date:01/30/2023 10:30:00 AM Scheduled Provider:Yeyo ROWE MD Location:[facility] Appointment Type:URO Office Visit [facility] Evaluation + Plan note Future Appointments Appointment Date:01/30/2023 10:15:00 AM Scheduled Provider:Yeyo ROWE MD Location:[facility] Appointment Type:URO Office Visit [facility] Evaluation + Plan note Future Appointments Appointment Date:02/01/2023 10:00:00 AM Scheduled Provider: Location:[facility] Appointment Type:Urology CALL PAT FT Appointment Date:02/08/2023 09:00:00 AM Scheduled Provider: Location:[facility] Appointment Type:Urology FT Appointment Date:02/14/2023 09:15:00 AM Scheduled Provider: Location:[facility] Appointment Type:Urology FT [facility] evaluation + Plan note Future Appointments Appointment Date:02/14/2023 09:15:00 AM Scheduled Provider: Location:[facility] App[facility]ments Appointment Date:03/20/2023 08:45:00 AM Scheduled Provider: Location:[facility] Appointment Type:URO Nurse Visit Appointment Date:04/05/2023 08:00:00 AM Scheduled Provider:Yeyo ROWE MD Location:[facility] Appointment Type:URO Office Visit [facility] + Plan note Future Appointments Appointment Date:05/03/2023 08:45:00 AM Scheduled Provider:Yeyo ROWE MD Location:[facility] Appointment Type:URO Office Visit [facility] Evaluation + Plan note Future Appointments Appointment Date:07/03/2023 10:15:00 AM Scheduled Provider:Yeyo ROWE MD Location:[facility] Appointment Type:URO Office Visit [facility] evaluation + Plan note Future Appointments Appointment Date:10/23/2023 09:30:00 AM Scheduled Provider:Mike Montes MD Location[facility] Appointment Type:Vascular Follow Up (FT) [facility] noteNo InformationNort Housing.com Other Evaluation noteNo assessment information available [facility] Work Phone: Evaluation note* Diagnosis History of PTCA Postsurgical percutaneous transluminal coronary angioplasty status Hyperlipidemia, unspecified hyperlipidemia type Encounter for pre-operative cardiovascular clearance Former smoker Personal history of tobacco use, presenting hazards to health documented in this encounter [facility] Work Phone: Evaluation note* Diagnosis Onset Date Resolution Status Anemia acuteAtrial fibrillationacuteChronic back painacuteCigarette nicotine dependence with nicotine-induced disorderacute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acuteGERD (gastroesophageal reflux disease)acute HyperlipidemiaacuteRestless legs syndromeacuteSyncopeacuteCAD (coronary artery disease)chronicChronic kidney diseasechronicDiabeteschronicHypertensionchronic [facility] Work Phone: Evaluation note* Diagnosis Onset Date Resolution Status Anemia acuteAtrial fibrillationacuteChronic back painacuteCigarette nicotine dependence with nicotine-induced disorderacute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acuteGERD (gastroesophageal reflux disease)acute HyperlipidemiaacuteRestless legs syndromeacuteSyncopeacuteCAD (coronary artery disease)chronicChronic kidney diseasechronicDiabeteschronicHypertensionchronic Altered mental statusacuteHypothermiaacute [facility] Work Phone: Evaluation note* Diagnosis Onset Date Resolution Status Anemia acuteAtrial fibrillationacuteChronic back painacuteCigarette nicotine dependence with nicotine-induced disorderacute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acuteGERD (gastroesophageal reflux disease)acute HyperlipidemiaacuteRestless legs syndromeacuteSyncopeacuteCAD (coronary artery disease)chronicChronic kidney diseasechronicDiabeteschronicHypertensionchronic Altered mental statusacuteAnemiaacuteGERD (gastroesophageal reflux disease)acute HyperbilirubinemiaacuteHypothermiaacuteLFT elevationacuteRestless legs syndrome acuteSyncopeacute [facility] Work Phone: Evaluation note* Diagnosis Onset Date Resolution Status Anemia acuteAtrial fibrillationacuteChronic back painacuteCigarette nicotine dependence with nicotine-induced disorderacute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acuteGERD (gastroesophageal reflux disease)acute HyperlipidemiaacuteRestless legs syndromeacuteCAD (coronary artery disease) chronicChronic kidney diseasechronicDiabeteschronicHypertensionchronicSyncope resolvedAltered mental statusacuteAnemiaacuteGERD (gastroesophageal reflux disease)acuteLFT elevationacuteRestless legs syndromeacuteSyncoperesolved Abnormal finding on imagingacuteGERD (gastroesophageal reflux disease)acute [facility] Work Phone: Evaluation note* Diagnosis Onset Date Resolution Status Anemia acuteAtrial fibrillationacuteChronic back painacuteCigarette nicotine dependence with nicotine-induced disorderacute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acuteGERD (gastroesophageal reflux disease)acute HyperlipidemiaacuteRestless legs syndromeacuteCAD (coronary artery disease) chronicChronic kidney diseasechronicDiabeteschronicHypertensionchronicSyncope resolvedAltered mental statusacuteAnemiaacuteGERD (gastroesophageal reflux disease)acuteLFT elevationacuteRestless legs syndromeacuteSyncoperesolved Abnormal finding on imagingacuteGERD (gastroesophageal reflux disease)acute Diabetesacute [facility] Work Phone: Evaluation note* Diagnosis Shortness of breath documented in this encounter [facility] Work Phone: Evaluation note* Diagnosis Abscess of right foot- Primary Cellulitis and abscess of foot, except toes Status post partial amputation of right foot ([facility]) Type 2 diabetes mellitus with stage 4 chronic kidney disease, without long-term current use of insulin ([facility]) Atherosclerosis of [place] coronary artery of [place] heart without angina pectoris Bacterial sepsis ([facility]) Bacteremia Other acute osteomyelitis of right foot ([facility]) Chronic obstructive pulmonary disease, unspecified COPD type ([facility]) Cigarette smoker Tobacco use disorder BPH with obstruction/lower urinary tract symptoms Gastroesophageal reflux disease, unspecified whether esophagitis present Restless leg syndrome Restless legs syndrome (RLS) Hyperlipidemia, unspecified hyperlipidemia type Carpal tunnel syndrome, unspecified laterality Heart failure, unspecified HF chronicity, unspecified heart failure type ([facility]) [facility] Diagnosis Diarrhea, unspecified type- Primary Other acute osteomyelitis of right foot ([facility]) Status post partial amputation of right foot ([facility]) Chronic obstructive pulmonary disease, unspecified COPD type ([facility]) Abscess of right foot Cellulitis and abscess of foot, except toes Type 2 diabetes mellitus with stage 4 chronic kidney disease, without long-term current use of insulin (CMS-HCC) [facility] Diagnosis Status post partial amputation of right foot ([facility] Primary Pressure ulcer of right ankle, stage 3 ([facility]) Other abnormalities of gait and mobility Delayed surgical wound healing of foot amputation stump ([facility]) documented in [facility] encounter [facility]* Diagnosis 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 ([facility])- Primary Poor circulation Unspecified circulatory system disorder Heavy tobacco smoker >10 cigarettes per day documented in this encounter [facility]* Diagnosis Status post partial amputation of right foot ([facility])- Primary 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 ([facility]) Type 2 diabetes mellitus with stage 4 chronic kidney disease, without long-term current use of insulin ([facility]) documented in this encounter [facility] SystemEvaluation note* Diagnosis Peripheral arterial disease ([facility])- Primary Unspecified peripheral vascular disease Delayed surgical wound healing of foot amputation stump ([facility]) Other abnormalities of gait and mobility Status post partial amputation of right foot ([facility]) Pressure ulcer of right ankle, stage 3 ([facility]) Type 2 diabetes mellitus with stage 4 chronic kidney disease, without long-term current use of insulin ([facility]) documented in this encounter [facility] SystemEvaluation note* Diagnosis 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 ([facility])- Primary Status post partial amputation of right foot ([facility] Primary Osteomyelitis of right foot, unspecified type ([facility]) Muscle weakness (generalized) Other abnormalities of gait and mobility Chronic obstructive pulmonary disease, unspecified COPD type ([facility]) Peripheral arterial disease ([facility]) Unspecified peripheral vascular disease 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 ([facility]) documented in this encounter [facility] SystemEvaluation note* Diagnosis Status post partial amputation of right foot ([facility] Primary Other abnormalities of gait and mobility Leg edema Edema Primary hypertension Unspecified essential hypertension Hypotension due to drugs Other iatrogenic hypotension 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 ([facility]) Diabetic polyneuropathy associated with type 2 diabetes mellitus ([facility]) documented in this encounter [facility] SystemEvaluation note* Diagnosis 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 ([facility])- Primary Cigarette smoker motivated to quit documented in this encounter [facility] SystemEvaluation note* Diagnosis 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 ([facility])- Primary 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 ([facility]) Delayed surgical wound healing of foot amputation stump ([facility]) Other abnormalities of gait and mobility documented in this encounter [facility] System[facility] note* Diagnosis Critical limb ischemia of right lower extremity with gangrene ([facility])- Primary [facility] Diagnosis 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 coronary artery of [place] heart without angina pectoris Atrial fibrillation ([facility]) Primary hypertension Unspecified essential hypertension documented in this encounter [facility] SystemEvaluation note* Diagnosis Diabetic polyneuropathy associated with type 2 diabetes mellitus ([facility])- Primary Encounter for orthopedic aftercare following surgical amputation Other abnormalities of gait and mobility Restless leg syndrome Restless legs syndrome (RLS) documented in this encounter [facility] SystemEvaluation note* Diagnosis 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 ([facility])- Primary Poor circulation Unspecified circulatory system disorder Heavy tobacco smoker >10 cigarettes per day 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 ([facility])- Primary Cigarette smoker motivated to quit 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 ([facility])- Primary Cigarette smoker Tobacco use disorder History of right below knee amputation ([facility])- Primary documented in this encounter [facility] note* Diagnosis Encounter for orthopedic aftercare following surgical amputation- Primary Cigarette smoker Tobacco use disorder Diabetic polyneuropathy associated with type 2 diabetes mellitus ([facility]) Other abnormalities of gait and mobility Muscle spasm Spasm of muscle documented in this encounter [facility] SystemEvaluation note* Diagnosis PAD (peripheral artery disease) ([facility])- Primary Unspecified peripheral vascular disease [facility] Diagnosis Encounter for orthopedic aftercare following surgical amputation- Primary Other abnormalities of gait and mobility BPH with obstruction/lower urinary tract symptoms Diabetic polyneuropathy associated with type 2 diabetes mellitus ([facility]) Atherosclerosis of [place] coronary artery of [place] heart without angina pectoris Heart failure, unspecified HF chronicity, unspecified heart failure type ([facility]) Primary hypertension Unspecified essential hypertension Peripheral arterial disease ([facility]) Unspecified peripheral vascular disease Chronic obstructive pulmonary disease, unspecified COPD type ([facility]) Gastroesophageal reflux disease, unspecified whether esophagitis present Muscle weakness (generalized) documented [facility]* Diagnosis Onset Date Resolution Status Admit Date Acute kidney injury superimposed on CKD acuteMarch 2024 5:39amDiabetesacuteMarch 2024 5:39amHypocalcemiaacute March 2024 5:39amLeft sided numbnessacuteMarch 2024 5:39amParesthesias [facility] 20[facility] 5:39amHypertensionchronicMarch 2024 5:39am 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 ([facility])- Primary Cigarette smoker motivated to quit 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 Date/TimeNovember 2023 1:50pm [place] [address] Gastroenterology H&P Signed Patient: Myra Pickard MR#: [id number] : 1965 Acct:[id number] Age/Sex: 58 / M Adm Date: 4 Loc: Room: Type: [facility] Attending Dr: Mike Burleson [...] MD Documented By: Mike Burleson MD 04/23/24 1342 Signed By: <Electronically signed by Mike Burleson MD> 04/23/[address] [facility] Work Phone: History and physical note Author Marge Andino [facility] CenterNote Date/TimeMarch 2024 7:24[place] [address] Hospitalist H&P Signed Patient: Myra Pickard SR MR#: [id number] : 1965 Acct:[id number] Age/Sex: 59 / M Adm Date: 5 Loc: 3T Room: [address] [place] [address] Type: ADM IN Attending Dr: Kevon Viera [...] imaging studies reviewed EKG personally reviewed by tx side this rhythm with PACs, without ischemic changes, with QTc 485 Previous records in the computer system reviewed CT scan of the head/CT of the head and neck without acute findings -official report pending [facility] Medical History Chronic obstructive pulmonary disease, [...] mass Atrial fibrillation Atherosclerotic heart disease of [place] coronary artery with unspecified angina pectoris Anxiety Hx of exercise stress test Family history of premature CAD Reports mother had quadruple bypass at age of 45 Myocardial infarction mild Fibromyalgia Chronic back pain Sleep apnea Neuropathy Cataract Peripheral artery disease Hyperlipidemia Diabetes Hypertension Surgical History History of below-knee amputation of right lower extremity 02/2024 [facility] by [facility]. Simon Hernández Vascular History of [...] 07/12/23[History Confirmed 08/11/24] flash glucose scanning reader ([employer] Jigar 2 [place]) #1 ea 12/28/23 [Rx Confirmed 08/11/24] flash [...] 32 gauge x /32 (Comfort EZ Pen Brackney) #100 ea 04/15/24 [Rx Confirmed 08/11/24] hydroxyzine [...] 04:15 Lymph % (Auto) N/A 08/11/24 04:15 [place] % (Auto) N/A 08/11/24 04:15 Eos % (Auto) N/A 08/11/24 04:15 Baso % (Auto) N/A 08/11/24 04:15 Nucleat RBC Rel Count N/A 08/11/24 04:15 Neut # (Auto) N/A 08/11/24 04:15 Lymph # (Auto) N/A 08/11/24 04:15 [place] # (Auto) N/A 08/11/24 04:15 Eos # [...] signed by Marge Andino MD> 08/11/[address] [facility] Work Phone: [place] [address] Hospitalist H&P Signed Patient: Myra Pickard SR MR#: [id number] : 1965 Acct:[id number] Age/Sex: 59 / M Adm Date: 5 Loc: 4 Room: 3M2765-3 Type: ADM INOo Attending Dr: Abdullahi Canchola [...] reports multivessel PCI'saround the time of at [facility]. He hasstent information cards that are indicative [...] Continue to trend cardiac markers, routine echocardiogram. [facility] Medical History Hypokalemia Hypocalcemia Hypomagnesemia Vitamin [...] mass Atrial fibrillation Atherosclerotic heart disease of [place] coronary artery with unspecified angina pectoris Anxiety Hx of exercise stress test Family history of premature CAD Reports mother had quadruple bypass at age of 45 Myocardial infarction mild Fibromyalgia Chronic back pain Sleep apnea Neuropathy Cataract Peripheral artery disease Hyperlipidemia Diabetes Hypertension Surgical History History of below-knee amputation of right lower extremity 02/2024 [facility] by Dr. Simon Hernández Vascular History of [...] 07/12/23[History Confirmed 10/10/24] flash glucose scanning reader ([employer] Jigar [employer] [place]) #1 ea 12/28/23 [Rx Confirmed 10/10/24] flash [...] 32 gauge x 5/32 (Comfort EZ Pen [place]) #100 ea 04/15/24 [Rx Confirmed 10/10/24] hydroxyzine [...] % (Auto) 23.4 % (.) 10/10/24 15:42 [place] % (Auto) 9.5 % (.) 10/10/24 15:42 Eos % (Auto) 4.0 % (.) 10/10/24 15:42 Baso % (Auto) 1.3 % (.) 10/10/24 15:42 Nucleat RBC Rel Count 0.2 /100 WBC (0-0.5) 10/10/24 15:42 Neut # (Auto) 5.3 x10E3/uL (1.8-7.7) 10/10/24 15:42 Lymph # (Auto) 2.0 x10E3/uL (1.00-4.8) 10/10/24 15:42 [place] # (Auto) 0.8 x10E3/uL (0.0-0.8) 10/10/24 15:42 [...] DO 10/10/24 18 33 Signed By: 10/11/[address] [place], [place] [address]History and physical note Author Abdullahi Canchola [facility] CenterNote Date/TimeMay 2024 1:58[place] [address] Hospitalist H&P Signed Patient: Myra Pickard SR MR#: [id number] : 1965 Acct:[id number] Age/Sex: 59 / M Adm Date: 5 Loc: Room: [address] [place] [address] Type: ADM INOo Attending Dr: Abdullahi Canchola [...] reports multivessel PCI'saround the time of at [facility]. He hasstent information cards that are indicative [...] Continue to trend cardiac markers, routine echocardiogram. [facility] Medical History Hypokalemia Hypocalcemia Hypomagnesemia Vitamin [...] mass Atrial fibrillation Atherosclerotic heart disease of [place] coronary artery with unspecified angina pectoris Anxiety Hx of exercise stress test Family history of premature CAD Reports mother had quadruple bypass at age of 45 Myocardial infarction mild Fibromyalgia Chronic back pain Sleep apnea Neuropathy Cataract Peripheral artery disease Hyperlipidemia Diabetes Hypertension Surgical History History of below-knee amputation of right lower extremity 02/2024 [facility] by Dr. Simon Hernández Vascular History of [...] 07/12/23[History Confirmed 10/10/24] flash glucose scanning reader ([employer] Jigar 2 [place]) #1 ea 12/28/23 [Rx Confirmed 10/10/24] flash [...] 32 gauge x 5/32 (Comfort EZ Pen [place]ackney) #100 ea 04/15/24 [Rx Confirmed 10/10/24] hydroxyzine [...] % (Auto) 23.4 % (.) 10/10/24 15:42 [place] % (Auto) 9.5 % (.) 10/10/24 15:42 Eos % (Auto) 4.0 % (.) 10/10/24 15:42 Baso % (Auto) 1.3 % (.) 10/10/24 15:42 Nucleat RBC Rel Count 0.2 /100 WBC (0-0.5) 10/10/24 15:42 Neut # (Auto) 5.3 x10E3/uL (1.8-7.7) 10/10/24 15:42 Lymph # (Auto) 2.0 x10E3/uL (1.00-4.8) 10/10/24 15:42 [place] # (Auto) 0.8 x10E3/uL (0.0-0.8) 10/10/24 15:42 [...] <Electronically signed by Abdullahi Canchola DO> 10/11/[address] [facility] Work Phone: History general Narrative - Reported* Type Description Date Medical History TYPE II DIABETES Medical HistoryCHRONIC BACK PAIN OLD INJURY,Medical HistoryHTNMedical History FIBROMYALGIAMedical Ardvyrd2834-dtvgok testMedical Historymild heart attack Medical Historyheart cathMedical Historycardiac stents placed 07/26/15 Dr. Bowie Medical Nyqpwum0810/10/2016 PSA (0.5)Medical HistoryPVDMedical HistoryAngioplasty & stenting LT LE 09/27/18 w/ Dr. SealsMedical History01/25/19 Colonoscopy Medical Historycigarette smokerMedical HistoryCLAUDICATIONSurgical History FNIAIPMGNGRI1640Wdnhkcln HistoryBIL CARPAL TUNNEL BKOUSME2246Jfpcweqe HistoryBIL CATARACT EXTRATION AND LENS TPVMVIAL2686Jndmpvwj Szmgaceeugzcnag8812Wyjrgiua HistoryCarpal Tunnel Release BilaterallySurgical HistoryLense Replacement Bilateral EyesSurgical Historyradio waves in L3,4,5 lower back LT side06/06/11 Surgical History3 heart stents placed11/2013Surgical Historyupper GI12/2013 Surgical Historyheart cath done07/2014Surgical HistoryHeart stent placed by Dr. Bowie at [facility]07/26/15urgical HistoryLeft knee arthroscopy11/2015Surgical History carpal tunnel release, right and left08/2016Surgical Historyhydrocele repair 08/2016Surgical Historycardiac cath [facility]/02/18urgical HistoryLt LE iliac DSA, angioplasty & stenting09/27/2018Surgical HistoryLeft Angiogram with one stent - Dr. Boss07/2020Hospitalization HistoryDeep Depression, Anxiety; [facility] and hypercapnic respirtory failure11/11/16Hospitalization Historychest pain [facility] 04/02/18 [facility] Other History of Present illness NarrativeReturns in [...] impact on blood pressure and [facility] Work Phone: History of Present [...] medication regimen. He denies medication side effects. [facility] 600 DO Work Phone: History of Present [...] medication regimen. He denies medication side effects. [facility] 250 DO Work Phone: Hospital course Narrative No data available for this section [facility] Hospital Discharge instructions No data available for this section [facility] Hospital Discharge instructionsAmbulatory Orders* Referral to Pain Management Time Frame: 08/30/24, Location: [facility] Work Phone: InstructionsNot on filedocumented [...] available for this section [facility] Progress note Author Kevon Viera [facility] CenterNote Date/TimeMarch 2024 1:[address] [address] Progress Note Signed Patient: Myra Pickard SR MR#: [id number] : 1965 Acct:[id number] Age/Sex: 59 / M Adm Date: 5 Loc: 3T Room: [address] [place] [address] Type: ADM IN Attending Dr: Kevon Viera [...] signed by Kevon Viera MD> 08/11/[address] [facility] Work Phone: Progrsws note Author Maurice Francis [facility] CenterNote Date/TimeMarch 2024 11:[address] [address] Nephrology Progress Note Signed Patient: Myra Pickard SR MR#: [id number] : 1965 Acct:[id number] Age/Sex: 59 / M Adm Date: 5 Loc: 3T Room: [address] [place] [address] Type: ADM IN Attending Dr: Kevon Viera [...] Skin: No rashes , warm to touch NET DEVELOPER: Awake,Alert, 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 Musculoskeletal: No swelling [...] 25 Mg Tablet) 25 mg PO HS [facility] Stop: 08/11/25 21:59 Last Admin: 08/11/24 21:17 [...] 5,000 Unit/Ml Vial) 5,000 unit SUBCUT Q12HR [facility] Stop: 08/11/25 08:59 Last Admin: 08/12/24 08:27 Dose: 5,000 unit Hydralazine HCl (Hydralazine 20 Mg/Ml Vial) 10 mg IV-PUSH Q4H PRN PRN Reason: if SBP > 185 Stop: 08/11/25 05:38 Potassium Chloride/Sodium Chloride (0.9 % Nacl-20 Meq Kcl) 1,000 mls @ 125 mls/hr IV .Q8H [facility] Stop: 08/11/25 07:14 Last Admin: 08/12/24 08:26 Dose: 125 mls/hr Ferric Sodium Gluconate Complex 250 mg/ Sodium Chloride 270 mls @ 135 mls/hr IVQAM [facility] Stop: 08/14/24 10:59 Last Admin: 08/12/24 09:19 Dose: 135 mls/hr Insulin Aspart (Insulin Aspart 300 Units/3 Ml) 0 units SUBCUT TID.[facility]; Protocol Stop: 08/11/25 07:59 Last Admin: 08/12/24 08:27 Dose: Not Given Ipratropium Channahon (Ipratropium Channahon 0.5 Mg/2.5 Ml Vial.Neb) 0.5 mg INHALATION QID.RESP [facility] Stop: 08/11/25 07:59 Last Admin: 08/12/24 08:51 Dose: 0.5 mg Isosorbide Mononitrate (Isosorbide Mononitrate 24hr Er 30 Mg Tab.Er.24h) 30 mg PO DAILY [facility] Stop: 08/11/25 08:59 Last Admin: 08/12/24 08:27 Dose: 30 mg Metoprolol Tartrate (Metoprolol Tartrate 100 Mg Tablet) 100 mg PO BID [facility] Stop: 08/11/25 08:59 Last Admin: 08/12/24 08:27 [...] signed by Maurice Francis MD> 08/12/[address] [facility] Work Phone: Progress note Author Kevon Viera [facility] CenterNote Date/TimeMarch 2024 3:[place] [address] Hospitalist Progress Note Signed Patient: Myra Pickard SR MR#: [id number] : 1965 Acct:[id number] Age/Sex: 59 / M Adm Date: 5 Loc: 3T Room: [address] [place] [address] Type: ADM IN Attending Dr: Kevon Viera [...] 1 units TID.WM.[facility] SATISH Administration Protocol Ipratropium Channahon 0.5 mg 08/11/24 08:00 08/12/24 12:31 Ipratropium Channahon 0.5 Mg/2.5 Ml Vial.Neb INHALATION 08/11/25 07:59 [...] Viera MD> 08/12/24 [facility]6 [facility] Work Phone: Progress note Author Maurice Francis [facility] CenterNote Date/TimeMarch 2024 11:06[place] [address] Nephrology Progress Note Signed Patient: Myra Pickard SR MR#: [id number] : 1965 Acct:[id number] Age/Sex: 59 / M Adm Date: 5 Loc: Room: 6A0135-8 Type: ADM IN Attending Dr: Kevon Viera [...] Skin: No rashes , warm to touch NET DEVELOPER: Awake,Alert, 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 Musculoskeletal: No swelling [...] 80 Mg Tablet) 80 mg PO DAILY [facility] Stop: 08/11/25 08:59 Last Admin: 08/13/24 08:25 Dose: 80 mg Budesonide/Formoterol Fumarate (Budesonide/Formoterol 160-4.5 Mcg 60 Puff/6 Gm Hfa.Aer.Ad) 2 puff INHALATION BID SATISH Stop: 08/11/25 08:59 Last Admin: 08/13/24 07:54 Dose: 2 puff Calcium Carbonate (Calcium Carbonate/Vitamin D3 500 Mg/200 Unit Tablet) 2 tab PO TID.WITH.MEALS [facility] Stop: 08/11/25 07:59 Last Admin: 08/13/24 08:25 [...] 5,000 Unit/Ml Vial) 5,000 unit SUBCUT Q12HR [facility] Stop: 08/11/25 08:59 Last Admin: 08/13/24 08:25 Dose: 5,000 unit Hydralazine HCl (Hydralazine 20 Mg/Ml Vial) 10 mg IV-PUSH Q4H PRN PRN Reason: if SBP > 185 Stop: 08/11/25 05:38 Ferric Sodium Gluconate Complex 250 mg/ Sodium Chloride 270 mls @ 135 mls/hr IVQAM [facility] Stop: 08/14/24 10:59 Last Admin: 08/12/24 09:19 Dose: 135 mls/hr Insulin Aspart (Insulin Aspart 300 Units/3 Ml) 0 units SUBCUT TID.WM.HS [facility]; Protocol Stop: 08/11/25 07:59 Last Admin: 08/13/24 08:25 Dose: 1 units Ipratropium Ch[place]on (Ipratropium [place] 0.5 Mg/2.5 Ml Vial.Neb) 0.5 mg INHALATION QID.RESP [facility] Stop: 08/11/25 07:59 Last Admin: 08/13/24 07:54 Dose: 0.5 mg Isosorbide Mononitrate (Isosorbide Mononitrate 24hr Er 30 Mg Tab.Er.24h) 30 mg PO DAILY [facility] Stop: 08/11/25 08:59 Last Admin: 08/13/24 08:25 Dose: 30 mg Metoprolol Tartrate (Metoprolol Tartrate 100 Mg Tablet) 100 mg PO BID [facility] Stop: 08/11/25 08:59 Last Admin: 08/13/24 08:25 Dose: 100 mg Pantoprazole Sodium (Pantoprazole 40 Mg Tablet.Dr) 40 mg PO BID [facility] Stop: 08/11/25 08:59 Last Admin: 08/13/24 08:25 Dose: 40 mg Pregabalin (Pregabalin 75 Mg Capsule) 75 mg PO TID [facility] Stop: 02/07/25 08:59 Last Admin: 08/13/24 08:25 Dose: 75 mg Ropinirole HCl (Ropinirole 1 Mg Tablet) 1 mg PO TID [facility] Stop: 08/11/25 08:59 Last Admin: 08/13/24 08:25 [...] weeks Documented By: Maurice Francis MD 08/13/24 0874 Signed By: <Electronically signed by Maurice Francis MD> 08/13/[address] [facility] Work Phone: Reason for visit Narrative* CV Imaging (Routine) - AuthorizedSpecialtyDiagnoses / ProceduresReferred By ContactReferred To Contact Diagnoses Chest pain, unspecified type Procedures Nuclear Stress Test CHG MYOCARDIAL SPECT MULTIPLE STUDIES Pascale Arnold MD [address] [place] [address], [address] [address] Phone: tel: fax: [address] [address] Phone: tel: Referral IDStatusReasonStart DateExpiration DateVisits RequestedVisits [id number] [facility] Work Phone: Reuiox for visit Narrative* CV Imaging (Routine) - AuthorizedSpecialtyDiagnoses / ProceduresReferred By ContactReferred To Contact Diagnoses Chest pain, unspecified type Procedures Nuclear Stress Test CHG MYOCARDIAL SPECT MULTIPLE STUDIES Pascale Arnold MD [address] [place] [address] 2, [address] [address] Phone: tel: fax: [facility] [facility] [address] [place] [address] Phone: tel: Referral Rajiv DateExpiration DateVisits RequestedVisits [id number]/9/20255/9/202651 [facility] Work Phone: Chief Complaint MYRA PICKARD [...] ischemia of right lower extremity with gangrene ([facility]) Procedures Vas art doppler lwr bilat mult lev/PVR Mike Montes MD [address], [place] [address] Referral IDStatusReasonStart DateExpiration DateVisits RequestedVisits [id number] 1SpecialtyDiagnoses / ProceduresReferred By ContactReferred To ContactRadiology Diagnoses 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 ([facility]) Procedures CT angiogram abdominal aorta with runoff Mike Montes MD [address], [address] [address] Referral IDStatusReasonStart DateExpiration DateVisits RequestedVisits [id number] Review1Referral IDStatusReasonStart DateExpiration DateVisits RequestedVisits [id number] Review 1Referral IDStatusReasonStart DateExpiration DateVisits RequestedVisits [id number] Review1Specialty Diagnoses / ProceduresReferred By ContactReferred To ContactCardiology Diagnoses Shortness of breath Procedures Transthoracic Echo Complete MS ECHO TTHRC R-T 2D W/WOM-MODE COMPL SPEC&COLR D Bernard De La Cruz MD [address] [place] [address] Referral IDStatusReasonStart DateExpiration DateVisits RequestedVisits [id number] Perform Procedure /[id number] / ProceduresReferred By ContactReferred To Contact Diagnoses Encounter for pre-operative cardiovascular clearance Procedures ECG 12 Lead Raulito Inman MD [address] [place] [address], [address] [address] Referral IDStatusReasonStart DateExpiration DateVisits RequestedVisits [id number]/21/20245/21/490575EwgdrzpcrQmibhrbdk / Procedures Referred By ContactReferred To ContactCardiology Diagnoses History of PTCA Procedures Follow Up In Cardiology Raulito Inman MD [address] [place] [address], [address] [address] Referral IDStatusReasonStart DateExpiration DateVisits RequestedVisits [id number]/21/20245/ Reason CANCELLED consult and treat; previous patient of Dr. Sharpe last seen in 2020; persisting intractable headaches Diagnosis 1 Acute intractable he adache, unspecified headache type (R51.9) Referral Organization [facility] Referring Provider First Name Teresa Referring Provider Last Name Rory Referring Provider Specialty Family Prac dale Referred Organization [facility] Referred Provider Lyssa Sharpe Referred Address [address] [place], [place],[address] Referred Provider Specialty Neurology Referral Priority Routine General Notes [facility] 023 10:19:08 AM >Received today. [facility] request us to fill out their form and attach to Referral and send it to them and they will call patient to schedule. Referral was sent P2P and fax insurance card since it would not let me attach to referral [facility] 07/28/2022 10:23:53 AM >Spoke with Marilynn hurley [facility] and patient has been scheduled and cancelled the appt for 07/26/22 [facility] 07/28/2022 10:27:39 AM >Telephone encounter was sent Reason 03/31/22 @ 2:45pm consult and treat Diagnosis 1 Type 2 diabetes bobby itus with circulatory disorder (E11.59) Referral Organization [facility] Referring Provider First Name Teresa Referring Provider Last Name Rory Referring Provider Specialty [facility] Jono hunter Referred Organization [facility] Referred Provider Doris Barnes Referred Address [address],[place], [place],[address] Referred Provider Specialty Nurse Jono calderon Referral Priority Routine Referral Appointment Date 2022-03-31 General Notes [facility] 022 02:28:10 PM >Received today and sent P2P [facility] 02/16/2022 07:50:21 AM >Patient has been scheduled [...] ECG 12 Lead Raulito Inman MD [address] [facility] [address], [address] [address] [facility] DateExpiration DateVisits RequestedVisits [id number]/21/20245/335081CpqdljsnkEtvqicbyg / Procedures Referred By ContactReferred To ContactCardiology Diagnoses Shortness of breath Procedures Transthoracic Echo Complete MS ECHO TTHRC R-T 2D W/WOM-MODE COMPL SPEC&COLR D Bernard De La Cruz MD [address] [facility] [address], [address] [address] [facility] DateExpiration DateVisits RequestedVisits [id number] Perform Procedure /[id number] PatientPoor Circulation - Referral from Dr. Soto - No appt available in [place] until 11/02/2023; patient is having right leg and foot pain at a 10 right now since surgery 2 weeks ago SpecialtyDiagnoses / ProceduresReferred By ContactReferred To ContactVascular Surgery Diagnoses Poor circulation Paula Soto, DPM [address] [facility] [place] [address] [facility] [address] [place] [address] Referral IDStatus[facility] DateExpiration DateVisits RequestedVisits [id number] Review Specialty Services Required /[id number] limb ischemia of right lower extremity with gangreFollow up on testing completed in [place] Check insession ReasonCommentsAngioplasty RLE follow up - procedure at [facility]. Yolanda Critical limb ischemia of right lower extremity with gangreReasonOnset Date CommentsBlood Sugar Mjwxayn4603/22/2024High blood sugarsReasonCommentsP/O R B[facility], well approximatedReasonCommentstesting [facility] 2 months [...] March 04, 2024 End: March 06Yeni Gordon [facility] Emergency Department ProviderActiveStart: March 04, 2024 End: March 06, 2024Mofelicity Morejonl , MDAdmit Provider, Attending ProviderActive Start: March 04, 2024 End: March 06, 2024StCara Jha ProviderActiveStart: March 04, 2024 End: March 06Cara Dolan ProviderActiveStart: March 04, 2024 End: March 06, 2024 Team Status: Active Member Role Status Dates Kait Dan MD Emergency Provider Active Start: March 05, 2024 Pablo [facility] ProviderActiveStart: March 05, 2024 João Powell , MDAdmit Provider, Other ProviderActiveStart: March 05, 2024 Lyssa Sharep MDOther ProviderActiveStart: March 05, 2024 iMke Burleson MDAttending Provider, Other ProviderActiveStart: March 05, [...] Provider Active Sta rt: March 10, 2024 Yonas Hutton ProviderActiveStart: March 10, 2024 João Powell [...] Active Sta rt: September 30, 2023 [facility] ProviderActiveStart: September 30, 2023 Team Status: Active Member Role Status Dates Teresa Lynch DO Primary Care Provider Active Sta rt: October 01, 2023 Sachi Carrending ProviderActiveStart: October 01, 2023 Team Status: Active Member Role Status Dates Teresa Lynch DO Primary Care Provider Active Sta rt: October 02, 2023 Vidal Crar ProviderActiveStart: October 02, 2023 Team Status: Inactive Member Role Status Dates Paula Soto DPM MS Attending Provider Active Start: October 02, 2023 End: October 02, 2023 Team Status: Active Member Role Status Dates Teresa Lynch DO Primary Care Provider Active Sta rt: October 03, 2023 Vidal Carr ProviderActiveStart: October 03, 2023 Team Status: Active [...] Team MemberRelationshipSpecialtyStart DateEnd Date Teresa Lynch DO [facility] - Fxhlfug98/13/19 Team Status: Active Member Role Status Dates Fely Nguyen DO Attending Provider Active Start: November 15, 2023 Team Status: Active Member Role Status Dates Hernan Crook Attending Provider Active Start: November 26, 2023 Team Status: Active Member Role Status Dates Teresa Lynch DO Primary Care Provider Active Sta rt: March 08, 2024 Yonas Hutton ProviderActiveStart: March 08, 2024 Mohamad Andre , [...] DateEnd Date Teresa Lynch DO PCP - Knjxxcs29/13/19 Namita Mercer LPN Care ManagerCase [facility]12/25/23Team MemberRelationshipSpecialtyStart DateEnd Date Teresa Lynch MD [address] [place] [phone] PCP - External PCP03/05/23 Team Status: Active [...] ProviderActiveStart: October 10, 2024 Maryann Pierre , ECONOMIC RESEARCH ASSISTANT-BCOther ProviderActiveStart: October 10, 2024 Team Status: Inactive Member Role Status Dates Teresa Lynch DO Primary Care Provider Active Sta rt: October 10, 2024 End: October 11Deborah Hoover ProviderActiveStart: October 10, 2024 End: October [...] Status: Inactive Member Role Status Dates Teresa yLnch DO Primary Care Provider Active Sta rt: November 05, 2024 End: November 05Vidal Gomes ProviderActiveStart: November 05, 2024 End: November 05, 2024Team MemberRelationshipSpecialtyStart DateEnd Date Teresa Lynch DO [address] [place] [place] [address] [facility]11/04/24Team MemberRelationshipSpecialtyStart DateEnd Date Teresa Lynch DO [address] [place] [place] [address] [facility] - [facility]11/04/24Team MemberRelationshipSpecialtyStart DateEnd Date Teresa Lynch DO [address] [facility], [place] [phone] PCP - Generalmi Medicine11/04/24 Goals (unrecognized section [...] section and content) DATE CREATED AUTHOR 11/11/2022 [facility] DATE CREATED AUTHOR AUTHOR'S ORGANIZ ATION 01/27/2023 [facility] DATE CREATED AUTHOR AUTHOR'S ORGANIZ ATION 02/16/2023 [facility] DATE CREATED AUTHOR AUTHOR'S ORGANIZ ATION 02/16/2023 [employer] DATE CREATED AUTHOR AUTHOR'S ORGANIZ ATION 10/22/2023 [facility] DATE CREATED AUTHOR AUTHOR'S ORGANIZ ATION 11/16/2023 [facility] DATE CREATED AUTHOR AUTHOR'S ORGANIZ ATION 11/25/2023 [facility] DATE CREATED AUTHOR AUTHOR'S ORGANIZ ATION 01/10/2024 [facility] DATE CREATED AUTHOR AUTHOR'S ORGANIZ ATION 02/13/2024 [facility] DATE CREATED AUTHOR AUTHOR'S ORGANIZ ATION 02/14/2024 [facility] DATE CREATED AUTHOR AUTHOR'S ORGANIZ ATION 02/15/2024 [facility] DATE CREATED AUTHOR AUTHOR'S ORGANIZ ATION 02/16/2024 [facility] DATE CREATED AUTHOR AUTHOR'S ORGANIZ ATION 02/17/2024 [facility] DATE CREATED AUTHOR AUTHOR'S ORGANIZ ATION 02/18/2024 [facility] DATE CREATED AUTHOR AUTHOR'S ORGANIZ ATION 02/19/2024 [facility] DATE CREATED AUTHOR AUTHOR'S ORGANIZ ATION 02/20/2024 [facility] DATE CREATED AUTHOR AUTHOR'S ORGANIZ ATION 02/21/2024 [facility] DATE CREATED AUTHOR AUTHOR'S ORGANIZ ATION 02/22/2024 [facility] DATE CREATED AUTHOR AUTHOR'S ORGANIZ ATION 02/23/2024 [facility] DATE CREATED AUTHOR AUTHOR'S ORGANIZ ATION 02/24/2024 [facility] DATE CREATED AUTHOR AUTHOR'S ORGANIZ ATION 05/29/2024 [facility] DATE CREATED AUTHOR AUTHOR'S ORGANIZ ATION 11/08/2024 [facility] DATE CREATED AUTHOR AUTHOR'S ORGANIZ ATION 12/27/2024 [facility] DATE CREATED AUTHOR AUTHOR'S ORGANIZ ATION 02/09/2025 [facility] DATE CREATED AUTHOR AUTHOR'S ORGANIZ ATION 02/28/2025 [facility] DATE CREATED AUTHOR AUTHOR'S ORGANIZ ATION 03/08/2025 [facility] FOR RECORDS PERTAINING TO PATIENTS WHO [...] BE BASED ON THE PRIMARY CLINICAL RECORDS. [facility]. provides no warranty or guarantee of the accuracy or completeness of information in this document.
[2025-03-27 08:46] LABS: Hematocrit 58.2 % (42.0-54.0); Hemoglobin 20.5 g/dL (14.0-18.0); Mean Corpuscular HGB Conc 35.2 g/dL (29.9-35.2); Mean Corpuscular Hemoglobin 31.0 pg (25.9-34.0); Mean Corpuscular Volume 88.0 fL (80.0-94.0); Platelet Count 179 10^3/uL (150-450); Red Blood Count 6.61 10^6/uL (4.70-6.10); White Blood Count 13.6 10^3/uL (4.0-11.0)
[2025-03-27 09:09] LABS: Albumin Level 3.9 g/dL (3.4-5.0); Anion Gap 15.3; Blood Urea Nitrogen 36.0 mg/dL (7.0-18.0); Calcium 10.0 mg/dL (8.5-10.1); Carbon Dioxide 30.7 mmol/L (21.0-32.0); Chloride 94 mmol/L (98-107); Estimated GFR (African America 27 (>=60 mL/min/1.73m^2); Estimated GFR (Non-African Ame 22 (>=60 mL/min/1.73m^2); Glucose 262 mg/dL (74-106); Magnesium 2.1 mg/dL (1.8-2.4); Potassium 4.0 mmol/L (3.5-5.1); Sodium 136 mmol/L (136-145); Uric Acid 7.3 mg/dL (3.5-7.2)
[2025-03-27 09:13] LABS: Iron 82.0 ug/dL (65.0-175.0); Percent Iron Saturation 24.6 %; Total Iron Binding Capacity 334.0 ug/dL (250.0-450.0)
[2025-03-27 10:17] LABS: Ferritin 137.0 ng/mL (26.0-388.0); Folate 18.80 ng/mL (8.60-58.90)
[2025-03-28 04:07] LABS: Vitamin B12 363 pg/mL (232-1245)
== END 2025-03-27 08:15 | disposition home or self-care (01) ==
LOC: LAB 08:15
PROVIDERS: PCP Family Medicine; Visit Provider Internal Medicine Nephrology
DX: E61.1 Iron deficiency (principal); E55.9 Vitamin D deficiency, unspecified; N18.9 Chronic kidney disease, unspecified; D63.1 Anemia in chronic kidney disease
CPT/HCPCS: 36415; 80069; 81003; 82306; 82570; 82607; 82728; 82746; 83540; 83550; 83735; 83970; 84156; 84550; 85027

== ENCOUNTER 2025-04-01 07:35 | Outpatient (REF) | payer OTHER, SELFPAY ==
--- OUTSIDE RECORDS SUMMARY | 2023-10-02 04:45 | XMS_ITS ---
Author Organization The [facility] in [place] Address [address] [place] [address] Care Team Providers Care Glove Printer Name Role Phone Jenaro Valadez DO Primary Care Provider Fredy Hawkins [phone] REASON FOR VISIT wound - partial 1st ray amp. RT Encounters Encounter Location Date Provider Diagnosis THE [address] [address] 10/02/2023 Fredy Elias Plan Of Treatment No Information Progress Notes * Solomon FELDMAN SrDOB: [birth year] (59 yo M)Acc No.[id number]:10/02/2023 UNLOCKED PROGRESS NOTE Patient:?Solomon FELDMAN Sr :?Fredy Elias DPM, MSDOB:1965???Age: 58 Y???Sex:MaleDate:10/02/2023hone:[phone]:[address] [place] [address], [address], [place], [id number]:Mirtha Guzman Out:09:09 AM EST * * Electronic signature of Fredy Elias DPM on 04/01/2025 at 07:40 AM EDTSign off status: PendingVisit Status:?CHK (Check Out) * Provider: Mari Elias DPM, MS Date: 0 10/02/2023 Generated for Printing/Faxing/eTransmitting on:?04/01/2025 07:40 AM EDT
--- OUTSIDE RECORDS SUMMARY | 2023-10-05 04:15 | XMS_ITS ---
Author Organization [facility] in [place] Address [address] [place] [address] Care Team Providers Care Activities Counselor Name Role Phone Jenaro Valadez DO Primary Care Provider Fredy Hawkins [phone] REASON FOR VISIT wound - RT transmetatarsal amputation Encounters Encounter Location Date Provider Diagnosis THE [address] [address] 10/05/2023 Fredy Elias Plan Of Treatment No Information Progress Notes * Solomon FELDMAN SrDOB: [birth year] (59 yo M)Acc No.[id number]:10/05/2023 UNLOCKED PROGRESS NOTE Patient:?Solomon FELDMAN Sr :?Fredy Elias DPM, MSDOB:1965???Age: 58 Y???Sex:MaleDate:10/05/2023hone:[phone]:[address] [place] [address], [address], [place], [id number]:Mirtha Guzman Out:09:16 AM EST * * Electronic signature of Fredy Elias DPM on 04/01/2025 at 07:41 AM EDTSign off status: PendingVisit Status:?CHK (Check Out) * Provider: Mari Elias DPM, MS Date: 0 10/05/2023 Generated for Printing/Faxing/eTransmitting on:?04/01/2025 07:41 AM EDT
--- OUTSIDE RECORDS SUMMARY | 2023-12-15 04:00 | XMS_ITS ---
Author Organization [facility] in [place] Address [address] [place] [address] Care Team Providers Care Medical Appointment Clerk Name Role Phone Jenaro Valadez DO Primary Care Provider Fredy Hawkins [phone] REASON FOR VISIT Wound - TMA revision Encounters Encounter Location Date Provider Diagnosis [facility] [address] [place] [id number] 12/15/2023 Fredy Elias Plan Of Treatment No Information Progress Notes * Solomon FELDMAN SrDOB: [birth year] (59 yo M)Acc No.[id number]:12/15/2023 UNLOCKED PROGRESS NOTE Patient:?Solomon FELDMAN Sr :?Fredy Elias DPM, MSDOB:1965???Age: 58 Y???Sex:MaleDate:4Phone:[phone]:[address] [place] [address], [address], [place], [id number]:Mirtha Guzman Out:09:54 AM EST * * Electronic signature of Fredy Elias DPM on 04/01/2025 at 07:39 AM EDTSign off status: PendingVisit Status:?CHK (Check Out) * Provider: Mari Elias DPM, MS Date: 0 12/15/2023 Generated for Printing/Faxing/eTransmitting on:?04/01/2025 07:39 AM EDT
--- OUTSIDE RECORDS SUMMARY | 2024-02-14 04:00 | XMS_ITS ---
Author Organization [facility] [place] Address [address] [place] [address] Care Team Providers Care Manager Product Design Name Role Phone Jenaro Valadez DO Primary Care Provider Franklin Esparza Unavailable [phone] REASON FOR VISIT 1YEAR-COPD Encounters Encounter Location Date Provider Diagnosis Pulmonary Medicine [place] [address] [place] [address] 02/14/2024 Franklin Bonilla Plan Of Treatment No Information Progress Notes * Solomon FELDMAN SrDOB: [birth year] (59 yo M)Acc No.[id number]:02/14/2024 UNLOCKED PROGRESS NOTE Follow Up Patient: Camille AIKENSolomon Sr :?Franklin Bonilla DODOB:1965???Age:58 Y ???Sex:MaleDate:4Phone:[phone]:[address] [place] [address], [address], [place], [id number]:Jenaro Valadez DO Subjective: * Chief Complaints: * 1 . 1YEAR-COPD. * Medical History: Objective: * Vitals: Assessment: Plan: * Treatment: * * Electronic signature of Franklin Bonilla DO on 04/01/2025 at 07:39 AM EDTSign off status: PendingVisit Status:?R/S (Rescheduled) * Provider: Emerson Bonilla DO Date: 0 02/14/2024 Generated for Printing/Faxing/eTransmitting on:?04/01/2025 07:39 AM EDT
--- OUTSIDE RECORDS SUMMARY | 2024-05-15 04:00 | XMS_ITS ---
Author Organization [facility] in [place] Address [address] [place] [address] Care Team Providers Care Roll Wrapper Name Role Phone Jenaro Valadez DO Primary Care Provider Franklin Esparza Unavailable [phone] Allergies Allergen (clinical drug ingredient) Drug/Non Drug [...] since you last smoked?1-5 yearsAdditional Findings: Tobacco pmp-txjkQj-xypqflph cigarette smoker (10-19/day) Encounters Encounter Location Date Provider Diagnosis Pulmonary Medicine [address] [address] 05/15/2024 Franklin Bonilla Plan Of Treatment No Information Procedure Notes * CategorySub-CategoryDetailNotesPFTData:02/11/2021-FEV1/FVC: 81% -FEV1: 80%-FVC: 76%-Bronchodilator response: None-RV: 122%-T%-DLCO: 76%-Flow-volume loop: Mild restriction with scooping08/15/2014-FEV1/FVC: 82%-FEV1: 72%-FVC: 69%-Partialbronchodilator response in FEV1-RV: 93%-T%-DLCO: 72%Alpha-1 AntitrypsinScreening Date:06/09/2020Genotype:M/M Progress Notes * MATTEO Solomon María SrDOB: [birth year] (59 yo M)Acc No.[id number]:05/15/2024 UNLOCKED PROGRESS NOTE Follow Up Patient: Solomon BABB Sr :?Franklin Bonilla DODOB:1965???Age:58 Y ???Sex:MaleDate:05/15/2024hone:[phone]:[address] [place] [address], [address], [id number]:Jenaro Valadez, DO Subjective: * Chief Complaints: * [...] Day:?1 ?When did you stop smokin07/06/2020. 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 ???Drugs/Alcohol:?Drugs?Have you used drugs other [...] DAILY NEEDED Oral , Taking Spiriva Respimat(Tiotropium [place]) 2.5 MCG/ACT Aerosol Solution INHALE 2 PUFFS [...] of Franklin Bonilla DO on 04/01/2025 at 07:41 AM EDTSign off status: PendingVisit Status:?N/S N/C (No Show/No Charge) * Provider: Emerson Bonilla DO Date: 07/16/2023 Generated for Printing/Faxing/eTransmitting on:?04/01/2025 07:41 AM EDT
--- OUTSIDE RECORDS SUMMARY | 2024-07-10 04:00 | XMS_ITS ---
Author Organization [facility] in [place] Address [address] [place] [address] Care Team Providers Care Host Coordinator Name Role Phone Jenaro Valadez DO Primary Care Provider Franklin Esparza Unavailable [phone] REASON FOR VISIT 1 year F/U Encounters Encounter Location Date Provider Diagnosis Pulmonary Medicine [place] [address] [place] [address] 07/10/2024 Franklin Bonilla Plan Of Treatment No Information Progress Notes * Solomon FELDMAN SrDOB: [birth year] (59 yo M)Acc No.[id number]:07/10/2024 UNLOCKED PROGRESS NOTE Follow Up Patient: Camille AIKENSolomon Sr :?Franklin Bonilla DODOB:1965???Age:58 Y ???Sex:MaleDate:07/10/2024Phone:[phone]:[address] [place] [address], [address], [place], [id number]:Jenaro Valadez DO Subjective: * Chief Complaints: * 1 . 1 year F/U. * Medical History: Objective: * Vitals: Assessment: Plan: * Treatment: * * Electronic signature of Franklin Bonilla DO on 04/01/2025 at 07:40 AM EDTSign off status: PendingVisit Status:?OFF CANC (OFFICE CANCEL) * Provider: Emerson Bonilla DO Date: 0 07/10/2024 Generated for Printing/Faxing/eTransmitting on:?04/01/2025 07:40 AM EDT
--- OUTSIDE RECORDS SUMMARY | 2025-04-01 07:40 | XMS_ITS | Patient Health Record ---
Author Organization [facility] in [place] Address [address] [place] [address] Care Team Providers Care Vessel Ordinary Seaman Name Role Phone Jenaro Valadez DO Primary Care Provider Franklin Esparza Unavailable [phone] Allergies Allergen (clinical drug ingredient) Drug/Non Drug Allergy documented on EMR Reaction Allergy Type Onset Date Status Latex Latex hives Allergy ActivePenicillinshortness of breathDrug AllergyActive Reason For Referral No Information Medications Medication SIG (Take, Route, Frequency, Duration) Notes Start Date End Date Status Prevnar 20 0.5 ML as directed Intramuscular 02/15/2023ctivePregabalin 200 MGOral; Duration: 30 DaysActiveAlbuterol Sulfate HFA 108 (90 Base) MCG/ACT2 puffs as needed for SOB Inhalation every 4 hrs; Duration: ctiveSildenafil Citrate 100 MGTAKE 1 TABLET BY MOUTH DAILY NEEDED Oral; Duration: 30 DaysActiverOPINIRole HCl 1 MGOral; Duration: 90 DaysActiveAspirin Low Dose 81 MGOral; Duration: 90 DaysActiveSymbicort 160- 4.5 MCG/ACT 2 puffs Inhalation BID; Duration: 90 days Rinse after use ActiveAmitriptyline HCl 100 MGTAKE 1 TABLET BY MOUTH EVERYDAY AT BEDTIME Oral; Duration: 30 daysActiveSpiriva Respimat 2.5 MCG/ACTINHALE 2 PUFFS BY MOUTH ONCE DAILY Inhalation; Duration: 90 daysActiveClopidogrel Bisulfate 75 MGOral; Duration: 90 DaysActiveAtorvastatin Calcium 80 MGTAKE 1 TABLET BY MOUTH EVERY DAY Oral; Duration: 90 DaysActiveOmeprazole 40 MGOral; Duration: 90 DaysActive Nitroglycerin 0.4 MGDISSOLVE 1 TABLET UNDER TONGUE NEEDED FOR CHEST PAIN.MAY REPEAT EVERY 5 MINUTES X3. Sublingual; Duration: 30 DaysActiveoxyCODONE- Acetaminophen 5-325 MG1 tablet as needed Orally every 6 hrs; Duration: 5 days 4ActiveOXcarbazepine 300 MGOral; Duration: 30 DaysActiveIsosorbide Mononitrate ER 30 MGOral; Duration: 30 DaysActiveHYDROcodone-Acetaminophen 5-325 MGTAKE 1 TABLET BY MOUTH EVERY 12 HOURS NEEDED Oral; Duration: 3 DaysActive Jardiance 10 MGOral; Duration: 90 DaysActiveJanuvia 100 MGOral; Duration: 90 DaysActivemetFORMIN HCl 1000 MGOral; Duration: 90 DaysActiveLatanoprost 0.005 % Ophthalmic; Duration: 90 DaysActiveMetoprolol Tartrate 100 MGTAKE 1/2 TABLET BY MOUT TWICE DAILY Oral; Duration: 90 DaysActiveTamsulosin HCl 0.4 MG1 capsule Orally Once a dayActivediazePAM 5 MGOral; Duration: 30 DaysActiveTrulicity 1.5 MG/0.5MLSubcutaneous; Duration: 28 DaysActivetiZANidine HCl 4 MGOral; Duration: 30 DaysActiveGlimepiride 2 MGOral; Duration: 90 DaysActiveDivalproex Sodium 250 MGTAKE 1 TABLET BY MOUTH EVERY DAY AT BEDTIME FOR 30 DAYS Oral; Duration: 30 DaysActiveValsartan-hydroCHLOROthiazide 160-12.5 MGTAKE 1 TABLET BY MOUTH EVERY DAY FOR 90 DAYS Oral; Duration: 90 DaysActive Immunizations Vaccine Route Administration Date Status Comme nts Pneumococcal (Pneumovax 23) Unknown 02/22/2016 Administ ered SARS-COV-2 (COVID 19 Pfizer 30mcg/0.3mL)Jmppvly68/11/2021Administered Social History Tobacco Use: Social History Observation Description Date Details (start date - stop date) Former Smoker NA - NA Tobacco Control (Standard) Question Answer Notes Tobacco use: Former smoker How long has it been since you last smoked?1-5 yearsAdditional Findings: Tobacco fmx-rzlcIx-ktznbokn cigarette smoker (10-19/day) Problems Problem Type SNOMED Code ICD Code Onset Dates Problem Status W/U Status Risk Notes Problem Foot ulcer due to ty pe 2 diabetes mellitus (9025406235748) Type 2 diabetes mellitus with foot ulcer (E11.621) ActiveconfirmedProblemHypomagnesemia (176379783)Hypomagnesemia (E83.42)Active confirmedProblemCentrilobular emphysema (09914645)Centrilobular emphysema (J43.2)ActiveconfirmedProblemChronic ulcer of foot (443942762)Non-pressure chronic ulcer of left heel and midfoot with fat layer exposed (L97.422)Active confirmedProblemLong-term current use of inhaled steroid (246496945)[facility] (current) use of inhaled steroids (Z79.51)ActiveconfirmedProblemCoronary artery disease (23248427)CAD (coronary artery disease) (I25.10)ActiveconfirmedProblem Obstructive sleep apnea syndrome (35520767)JADEN (obstructive sleep apnea) (G47.33)ActiveconfirmedProblemDementia (89760956)Dementia (F03.90)Active confirmedProblemAcute exacerbation of chronic obstructive airways disease (393862095)COPD exacerbation (J44.1)ActiveconfirmedProblemDiabetes mellitus type 2 (disorder) (49678216)DM2 (diabetes mellitus, type 2) (E11.9)Activeconfirmed ProblemNon-pressure chronic ulcer of right heel and midfoot with necrosis of bone (L97.414)ActiveconfirmedProblemIron deficiency anemia (70479714)Anemia, iron deficiency (D50.9)ActiveconfirmedProblemMultiple pulmonary nodules (258576880)Multiple pulmonary nodules (R91.8)ActiveconfirmedProblemEx-tobacco user (finding) (060783745)History of tobacco abuse (Z87.891)Activeconfirmed ProblemChronic obstructive pulmonary disease (42589047)Advanced COPD (J44.9) ActiveconfirmedProblemChronic ulcer of right heel (55828936734722296)Chronic ulcer of right heel (L97.419)ActiveconfirmedProblemAmputation stump pain (T87.89)ActiveconfirmedProblemLeukocytosis (680823533)Elevated WBCs (D72.829) ActiveconfirmedProblemHistory of lung lobectomy (situation) (35641468489584553) 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)ActiveconfirmedProblemEssential hypertension (71793830)BP (high blood pressure) (I10)ActiveconfirmedProblemAcute osteomyelitis of ankle and/or foot (163557893)Acute osteomyelitis of right ankle (M86.171)ActiveconfirmedProblemAcute osteomyelitis of ankle and/or foot (320038074)Acute osteomyelitis of metatarsal bone of right foot (M86.171)Active confirmedProblemNon-pressure chronic ulcer of right heel and midfoot with muscle involvement without evidence of necrosis (L97.415)ActiveconfirmedProblemNon- pressure chronic ulcer of other part of right foot with muscle involvement without evidence of necrosis (L97.515)ActiveconfirmedProblemNon-pressure chronic ulcer of other part of left foot with other specified severity (L97.528)Active confirmedProblemDiabetic renal disease (519740481)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)ActiveconfirmedProblemType II diabetes mellitus without complication (498326216)Diabetes (E11.9)ActiveconfirmedProblemDiabetes mellitus (39103586)Diabetes mellitus (E11.9)ActiveconfirmedProblemChronic kidney disease stage 4 (177615220)Acute worsening of stage 4 chronic kidney disease (N18.4)ActiveconfirmedProblemChronic ulcer of right foot (disorder) (35254571949607805)Chronic ulcer of right foot with fat layer exposed (L97.512) ActiveconfirmedProblemPolyneuropathy due to type 2 diabetes mellitus (923898145) 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)Activeconfirmed Encounters Encounter Location Date Provider Diagnosis [facility] [address] [place] [address] 05/15/2024 Franklin Bonilla [facility] [place] [address]/20/2025 Franklin Bonilla Plan Of Treatment Pending Test Test Name Order Date AFB Specimen Processing 10/02/2023 Acid Fast Smear 10/02/2023 Acid Fast Culture 10/02/2023 Fungus Stain 10/02/2023 Future Test Test Name Order Date CT Chest Low Dose for Screening* 024 Insurance Providers Payer Name Payer Address Payer Phone Subscriber Number Group Number Insured Name Patient Relationship to Insured Coverage Start Date Coverage End Date [employer] [place] [employer] [address] [place] [address] [id number] Panfilo Feldman - patient is the [id number] 2023[place]ICAID [place] PRIMARY ONLYPO [address] OFFICE OF [place], [place] [id number], [employer] - patient is the [id number] Medical (General) History Medical History History ICD Code Centrilobular emphysema J43.2 JADEN (obstructive sleep apnea) G47.33 HTN (hypertension) I10 Hyperlipidemia E78.5 RLS (restless legs syndrome) G25.81 PAD (peripheral artery disease) I73.9 CAD (coronary artery disease) I25.10 DM2 (diabetes mellitus, type 2) E11.9 Multiple pulmonary nodules R91.8 BPH (benign prostatic hyperplasia) N40.0 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
--- OUTSIDE RECORDS SUMMARY | 2025-04-01 07:40 | XMS_ITS | Clinical Summary ---
Author Organization [employer] Address [id number] [address] [place] [address] Care Team Providers Care Biochemistry Technologist Name Role Phone Unavailable Primary Care Provider Unavailabl e Allergies Active AllergyReactionsCriticalityNoted DateCommentsAcetaminophenVomitingLow 07/31/2023 Other Reaction(s): Vomiting Isosorbide DinitrateOther (See Comments)Low08/04/2014 Headache LatexDermatitis,Itching,BsaaIgb7703/27/2023Oxycodone-Lcgngwpphuucd02/10/2017 PenicillinsAnaphylaxis,XuxrdDheb76/02/9124Webaobtayngr29/10/2017 Darvocet Medications MedicationSigDispense QuantityRefillsLast FilledStart DateEnd DateStatus [...] a week.07/12/2023ctive Active Problems ProblemNoted DateDiagnosed DateCigarette jfqcvx8802/28/2025 Assessment & Plan (02/28/2025 5:59 PM EDT): Counseled him on smoking cessation for at least 4 minutes Critical limb ischemia of left lower extremity with ehsnkdxi25/25/2025 Assessment & Plan (02/28/2025 6:00 PM EDT): CTA aorta with runoff PVR Continue aspirin 81 mg atorvastatin 80 mg and Plavix 75 mg. Hx of right BKA02/27/2025ltered mental haggms1703/15/20242699Qwhnqb46/11/2024trial /11/2024igarette nicotine dependence with nicotine-induced lahgnamp31/11/0656Vliboww28/11/2024hronic back pain03/15/2024Encounter for orthopedic aftercare following surgical fiorymwumu13/25/2024Muscle spasm 02/28/2024igarette udlquy4501/18/2024 Assessment & Plan (01/18/2024 9:04 AM EDT): Counseled him on smoking cessation at length. He is willing to quit. Symptomatic hcyyzvpiksb13/29/2024iabetic polyneuropathy associated with type 2 diabetes jgqygspn48/21/2024hest pain in adult11/10/2023hronic kidney disease 11/10/2023rescendo ygmjnv5011/10/2023iabetic nephropathy associated with secondary diabetes /07/6509Drhtlalvyset88/07/2024Leg edema11/10/2023 Gpzihrlhj89/27/7230Ilxwcofjiozy28/27/2024 Overview (10/30/2023): Will need to get back off opioids Encourage use of tylenol and pregabalin Neck pain10/30/2023Head ache10/30/2023Gross tlczztacz92/27/2024Heart attack 10/30/2023Heart lnhxwh4910/30/20230576Eaqdqufaw58/27/4900Lkzkgr81/27/2024Urinary smykelwfl58/27/2024Muscle weakness (generalized)10/30/2023Other abnormalities of gait and wtiuwdsj66/27/2024eripheral arterial eewuwmx3110/30/2023therosclerosis of [place] coronary artery of [place] heart without angina frqwsetu06/03/2024 Pyogenic inflammation of bone10/06/2023hronic obstructive pulmonary disease 10/06/2023igarette smoker motivated to quit10/06/2023 Assessment & Plan (11/30/2023 9:19 AM EDT): Counseled on smoking cessation for at least 3 minutes Assessment & Plan (10/18/2023 8:52 AM EDT): Counseled in length willing to quit. BPH with obstruction/lower urinary tract mjxyglfe03/03/2024Gastroesophageal reflux bqazjez8110/06/2023estless leg qvazzheo42/03/2024Heart laujoit2710/06/2023 Twbgdcfx67/10/4812Ytnswmvfmwvcfv87/25/2021arpal tunnel syndrome, right upper limb1Paresthesia and pain of both upper axhnxbjumxk70/20/2021 Overview (03/15/2024): Last Assessment & Plan: *06/14/2023 [...] to urinary issues. Paresthesia of bilateral legs09/22/2020Mixed urghhwkpfeetmy84/12/2016 Overview (10/30/2023): Cont home atorva Sleep apnea08/04/20141147Edsjaypvittb03/03/2014 Overview (10/30/2023): Continue home amlodipine 10mg QD Metoprolol 50mg bid Lisinopril on hold Monitor BP regularly Resolved Problems ProblemNoted DateDiagnosed DateResolved DateDelayed surgical wound healing of foot amputation stumpressure ulcer of right ankle, stage 3 ritical limb ischemia of right lower extremity with iryqygex15 Assessment & Plan (01/18/2024 9:03 AM EDT): Right below-knee amputation. Will do it here at [place]. Assessment & Plan (12/21/2023 8:57 AM EDT): We did iliofemoral endarterectomy and femoral above-knee bypass. He has some residual tibial occlusive disease. I discussed with him doing right lower extremity angiogram and intervention. Will do this close to [facility] at [facility]. Assessment & Plan (10/18/2023 8:32 AM EDT): PVR and CTA abdomen and plevis with runoff Abscess of right footStatus post partial amputation of right footType 2 diabetes mellitus with stage 4 chronic kidney disease, without long-term current use of uvedcll70/acterial zgonhv01/12/2023 Encounters DateTypeDepartmentCare InioGdqavutfjfx46/27/2025Telephone [facility] [address] [place] [address] Jess Aguilar [facility] 03/28/2025Tele[facility] [address] [place] [address] Padmini Montes MD 03/27/2025Telephone [facility] [address] [place] [address] Padmini Montes MD 03/13/2025Telephone [facility] [address] [place] [address] Jess Agiular [facility] 02/27/2025 10:50 AM EDTOffice Visit [facility] [address] [place] [address] Padmini Montes MD 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 ([facility]-H[facility]) (Primary Dx); Hx of right BKA (CMS-HCC); Cigarette unfkhh0202/27/20256473Zutufx36/31/2025Telephone [facility] [address] [place] [address] Baylee Chu CMA from Last 3 Months Immunizations ImmunizationAdministration DatesNext DueInfluenza, Im Trivalent Preservative 01/14/2019Influenza, Injectable, quadrivalent (PF)04/02/2018,03/07/2016 Influenza, Iczbymswycy12/12/2019Pneumococcal Wvdkuozsalhcpq78/19/2016 Social History Tobacco UseTypesPacks/DayYears UsedDateSmoking Tobacco: Every HbfPstmhgkfmn536.5 Started: 10/05/1981Smokeless Tobacco: Never Tobacco Cessation:Ready to Q uit: Not Asked; Counseling Given: Not Answered Alcohol UseStandard Drinks/WeekCommentsNot Currently0 (1 standard drink = 0.6 oz pure alcohol)[facility] UtilitiesAnswerDate RecordedIn the past 12 months has the [employer], [employer], oil, or water [employer]ra[employer] threatened to shut off services in your home?No11/07/2023UDIT-CAnswerDate RecordedQ1: How often do you have a drink containing alcohol?2-4 times a month11/07/2023Q2: How many drinks containing alcohol do you have on a typical day when you are drinking?1 or Q3: How often do you have six or more drinks on one occasion?Never11/07/2023HQ-2 AnswerDate RecordedTotal Ektty378RAPARE - TransportationAnswerDate RecordedIn the past 12 months, [...] as a part of a household?No11/07/2023 ChildcareAnswerDate WvmjtjrdPxqtfphazAqbuwie70/10/2019EmploymentAnswerDate RjmqezpySksuaeuhhrCksbrms87/10/2019Hunger ScreeningAnswerDate RecordedWithin the past 12 months we [...] Last Filed Vital Signs Vital SignReadingTime TakenCommentsBlood Xukgexmh950/8102/27/2025 10:51 AM EDT Vubes595802/27/2025 10:51 AM ZDYIyajuzvvuqq41.7 ??C (98 ??F)03/19/2024 5:26 PM EDT Respiratory Etuw596003/19/2024 5:26 PM EDTOxygen Ztqvmzfxti18%02/27/2025 10:51 AM EDTInhaled Oxygen Concentration--Awvzhg66.9 kg (207 lb)02/27/2025 10:51 AM EDT Bkinnu007.9 cm (6')02/27/2025 10:51 AM EDTBody Mass Index28.0702/27/2025 10:51 AM EDT Plan of Treatment DateTypeDepartmentCare Team (Latest Contact Info)Pgwuiyqbzhn63/30/2025 11:00 AM EDTOffice Visit [facility] [place] [address] Padmini Montes MD [address], [address] [address] Health MaintenanceDue DateLast DoneCommentsDiabetic Ophthalmology Exam1965 Statin Use: Dtnjftxofntlrv55/27/1966Statin Use: Ogjimpho70/27/1966Adult BMI Follow Up Plan1983Diabetic Foot Exam1983DTaP,Tdap and Td Vaccines (1 - Tdap)1984Zoster (Shingles) Vaccine (1 of 2)2015Depression Gmmbfrnvc65/OVID-19 Vaccine (3 - season)2025 11/13/2020, 10/23/2020Influenza Wdykysd60/05/2019, 01/14/2019, 04/02/2018, Additional history existsTobacco Uoprmuuwv20/26/654744/dult BMI Xjqryknzb63/ Goals GoalPatient Goal TypeAssociated ProblemsRecent ProgressPatient-Stated?Author Patient is planning to transition back to SNF at discharge. Chandrika Weber LSW Note: Evaluation of progress towards goal: Patient is planning to transition back to SNF at discharge. Medical Devices ImplantedTypeAreaManufacturerDevice IdentifierShelf Expiration DateModel / Serial / LotGraft Vsc 50cm 6mm [place] Thnwl Hep Propaten Ptfe Rem Rng - [id number] - [id number] Implanted:Qty: 1 on 11/08/2023 by [facility]: CffvcgmfVrwh52/19/[id number] / [id number] / Description:RIGHT FEMORAL ARTERYStent Vsc Epic 10mm 100mm 120cm 6fr Rdpq Otw Slf Xpd Gw - [id number] Implanted:Qty: 1 on 11/07/2023 [facility] [id number]/ [id number] / / [id number] Insurance Advance Directives * Full Code (Latest Code Status on File) Date ActivatedDate InactivatedComments11/07/2023 4:31 PM11/14/2023 9:31 PM
--- OUTSIDE RECORDS SUMMARY | 2025-04-01 07:40 | XMS_ITS | Patient Health Record ---
Author Organization [facility] Address [address] [place] [address] Care Team Providers Care Decatizer Name Role Phone Diogo Rodriguez Primary Care Provider Ryan Bebeto Unavailable [phone] Reason For Referral No Information Plan Of Treatment No Information Insurance Providers Payer Name Payer Address Payer Phone Subscriber Number Group Number Insured Name Patient Relationship to Insured Coverage Start Date Coverage End Date [facility] Medicaid [address] [place] [address] [id number] Elizabeth FELIPE - patient is the [id number] 2022ap [facility] CareSourcePO [address] [place] [id number], SCOTTSelf - patient is the [id number] 2022[facility] OHPO [address] [place] [id number], SCOTTSelf - patient is the [id number] 2022
--- OUTSIDE RECORDS SUMMARY | 2025-04-01 07:41 | XMS_ITS | Clinical Summary ---
Author Organization [facility] Healthcare Address [address] [place] [address] Care Team Providers Care Steam And Gas Turbines Assembler Name Role Phone Jenaro Valadez DO Unavailable Jenaro Valadez DO Primary Care Provider Allergies Active AllergyReactionsCriticalityNoted TjwoVmmdiuiaYzaqnfggpyhghJfy57/26/2024 Other Reaction(s): Vomiting Isosorbide KjjigekYwpgcDkr79/02/2015 Headache LatexDermatitis,Itching,Rash,MwvgzwdZwy02/23/1186GducykohuYlo00/26/2024 Other Reaction(s): Vomiting PenicillinsAnaphylaxis,JfgsyXzlj97/02/2014Oxycodone-Zdlbnainbknmx13/10/2017 Mmrgdflwjryz32/10/2017 Darvocet [address]nObvfbA[address]57/26/2024 Medications MedicationSigDispense QuantityRefillsLast FilledStart DateEnd DateStatus tamsulosin (Flomax) 0.4 MG 24 hr capsule Take 1 capsule (0.4 mg total) by mouth nightly.06/26/2023ctive dulaglutide (Trulicity) 0.75 MG/0.5ML solution pen-injector Inject 0.5 mL (0.75 mg total) under the skin once a week.07/12/2023ctive sildenafil (Viagra) 100 MG tablet TAKE 1 TABLET BY MOUTH EVERY DAY CLENRK7805/16/2023ctive omeprazole (PriLOSEC) [address] capsule 1 [...] other route every morning before breakfast.08/16/2023ctive HYDROcodone-acetaminophen ([place]) 5-325 MG tablet 12/12/2023ctive Insulin Lispro 100 UNIT/ML solution Inject under the skin. Take as directed per insulin instructions.Active isosorbide mononitrate ER (Imdur) 30 MG 24 hr tablet Take 1 tablet (30 mg total) by mouth daily.07/28/2023ctive Lancets (eduPadTouch Delica Plus Mvaojm65T) [facility] 12/12/2023ctive loperamide (Imodium A-D) 2 MG tablet [...] 90 tablet ctive Active Problems ProblemNoted DateDiagnosed DuymFgagnsrr92/10/7865Hzbrlebqicenyj56/25/2021arpal tunnel syndrome, right upper limb10/02/2020aresthesia and pain of both upper uicbjgopcsk68/20/2021 Assessment & Plan (12/17/2023 8:08 PM EDT): [...] of bilateral legs09/22/2020 Immunizations ImmunizationAdministration DatesNext DueInfluenza, Agxolejyspx75/12/2019 Influenza, injectable, quadrivalent, preservative free04/02/2018,03/07/2016 Pneumococcal Polysaccharide VACS0730 Family History Medical HistoryRelationNameCommentsAlzheimer's diseaseMotherDiabetesMotherHeart diseaseMotherVascular diseaseMotherRelationNameStatusCommentsMother Social History Tobacco UseTypesPacks/DayYears UsedDateSmoking Tobacco: Never AssessedSex and Gender InformationValueDate RecordedSex Assigned at BirthNot on fileLegal Sex Male08/17/2022 6:50 PM EDTGender IdentityNot on fileSexual OrientationNot on file Last Filed Vital Signs Vital SignReadingTime TakenCommentsBlood Uhgglvlz971/70006/14/2023 8:20 AM EST Pulse--Temperature--Respiratory Rate--Oxygen Saturation--Inhaled Oxygen Concentration--Hajrpp78.9 kg (218 lb)06/14/2023 8:20 AM GFLZkfedv864.8 cm (5' 10 )06/14/2023 8:20 AM ESTBody Mass Index31.28006/14/2023 8:20 AM EST Plan of Treatment Not on file Insurance [address] [place] [address] Care Teams Team MemberRelationshipSpecialtyStart DateEnd Date Jenaro Valadez DO PCP - External PCP03/05/23 Jenaro Valadez DO PCP - Mqferui64/8/24
--- OUTSIDE RECORDS SUMMARY | 2025-04-01 07:41 | XMS_ITS | Encounter Summary ---
Author Organization [employer] Address [facility] [id number] [address] [place] [address] Care Team Providers Care Commodity Management Specialist Name Role Phone Unavailable Primary Care Provider Unavailabl e Encounter Details DateTypeDepartmentCare Team (Latest Contact Info)Zuxmxmpzhrx19/24/2025Telephone [facility] [address] [place] [address] Padmini Montes MD [address], [facility] [address] [place] [address] Social History Tobacco UseTypesPacks/DayYears UsedDateSmoking Tobacco: Every DwqIqbcttafmo969.5 Started: 10/05/1981Smokeless Tobacco: NeverAlcohol UseStandard Drinks/Week CommentsNot Currently0 (1 standard drink = 0.6 oz pure alcohol)[facility] Utilities AnswerDate RecordedIn the past 12 months has the [employer], gas, oil, or water [employer] threatened to shut off services in your [...] as a part of a household?No4ChildcareAnswerDate Recorded TwwaruizgGuyrydf58/10/2019EmploymentAnswerDate RecordedEmploymentUnknown 11/12/2018Hunger ScreeningAnswerDate RecordedWithin the past 12 months we worried whether our food would run out before we got money to buy more.Never True02/29/2024Within the past 12 months the food we bought just didn't last and we didn't have money to get more.Never True02/29/2024Sex and Gender Information ValueDate RecordedSex Assigned at BirthNot on fileLegal OqmJcea9401/06/2015 1:04 PM EDTGender IdentityNot on fileSexual OrientationNot on filedocumented as of this encounter Miscellaneous Notes * Telephone Encounter - Ashley Colon - 03/28/2025 12:58 PM EDT While calling patient for pre-reg, I notice no testing has been resulted in his chart. I left detailed message asking patient to call office to either let us know where testing has been completed so we can get results, or we can assist getting him scheduled for testing and then rescheduled for the MD appt. Please assist when he calls back. documented in this encounter Plan of Treatment DateTypeDepartmentCare Team (Latest Contact Info)Wrbgecumcys51/30/2025 11:00 AM EDTOffice Visit [facility] [place] [address] Padmini Montes MD [address], [address] [address] documented as of this encounter Goals GoalPatient [...]
--- OUTSIDE RECORDS SUMMARY | 2025-04-01 07:41 | XMS_ITS | Encounter Summary ---
Author Organization [employer] Address [facility] [id number] [address] [place] [address] Care Team Providers Care Pin Sorter And Bagger Name Role Phone Unavailable Primary Care Provider Unavailabl e Encounter Details DateTypeDepartmentCare Team (Latest Contact Info)Lmqdsrttele91/23/2025Telephone [facility] [address] [place] [address] Padmini Montes MD [address], [facility] [address] [place] [address] Social History Tobacco UseTypesPacks/DayYears UsedDateSmoking Tobacco: Every XkeDyvjianipf648.5 Started: 10/05/1981Smokeless Tobacco: NeverAlcohol UseStandard Drinks/Week CommentsNot Currently0 (1 standard drink = 0.6 oz pure alcohol)[facility] Utilities AnswerDate RecordedIn the past 12 months has the [employer], gas, oil, or water [employer] threatened to shut off services in your [...] as a part of a household?No4ChildcareAnswerDate Recorded DrmtztfpeFsrbabg29/10/2019EmploymentAnswerDate RecordedEmploymentUnknown 11/12/2018Hunger ScreeningAnswerDate RecordedWithin the past 12 months we worried whether our food would run out before we got money to buy more.Never True02/29/2024Within the past 12 months the food we bought just didn't last and we didn't have money to get more.Never True02/29/2024Sex and Gender Information ValueDate RecordedSex Assigned at BirthNot on fileLegal CrqFgvl4001/06/2015 1:04 PM EDTGender IdentityNot on fileSexual OrientationNot on filedocumented as of this encounter Miscellaneous Notes * Telephone Encounter - Augustina Aburto - 03/27/2025 8:50 AM EDT Patient is at [facility] getting his [facility] angiogram and his CRF level is below range the tech wanted to no if his test should be rescheduled they can be reached at [phone] extension [phone]. Please advise * Telephone Encounter - Jess Aguilar CMA - 03/27/2025 8:[address] Montes said ok that he did not get his CTA and that he wanted the prior one from feb to be pushed through to [facility]. I called shon back at [facility] to ask her to do this and she is going to do this. * Telephone Encounter - Ashley Colon - 03/27/2025 8:50 AM EDT Just spoke with patient's . U/S done at [place], CTA unable to be performed due to kidney function and contrast. documented in this encounter Plan of Treatment DateTypeDepartmentCare Team (Latest Contact Info)Dxinyhoufhp03/30/2025 11:00 AM EDTOffice Visit [facility] [place] [address] [place] [address] Padmini Montes MD [address], [address] [address] documented as of this encounter Goals GoalPatient [...]
--- OUTSIDE RECORDS SUMMARY | 2025-04-01 07:41 | XMS_ITS | Encounter Summary ---
Author Organization [employer] Address [facility] [id number] [address] [place] [address] Care Team Providers Care Rooming House Operator Name Role Phone Unavailable Primary Care Provider Unavailabl e Encounter Details DateTypeDepartmentCare Team (Latest Contact Info)Aigincbpyzo42/27/2025Telephone [facility] [address] [place] [phone] Jess Aguilar CMA Social History Tobacco UseTypesPacks/DayYears UsedDateSmoking Tobacco: Every UdrRueocgbwjt627.5 Started: 10/05/1981Smokeless Tobacco: NeverAlcohol UseStandard Drinks/Week CommentsNot Currently0 (1 standard drink = 0.6 oz pure alcohol)[facility] Utilities AnswerDate RecordedIn the past 12 months has the electric, gas, oil, or water [employer] threatened to shut off services in your [...] as a part of a household?No4ChildcareAnswerDate Recorded NezbjfwytFqqhqnp38/10/2019EmploymentAnswerDate RecordedEmploymentUnknown 11/12/2018Hunger ScreeningAnswerDate RecordedWithin the past 12 months we worried whether our food would run out before we got money to buy more.Never True02/29/2024Within the past 12 months the food we bought just didn't last and we didn't have money to get more.Never True02/29/2024Sex and Gender Information ValueDate RecordedSex Assigned at BirthNot on fileLegal XviKjqi3001/06/2015 1:04 PM EDTGender IdentityNot on fileSexual OrientationNot on filedocumented as of this encounter Miscellaneous Notes * Telephone Encounter - Jess Aguilar CMA - 03/31/2025 12:51 PM EDT Called patient and told him we need to cancel his appt on 04/03 because he didn't get his testing done for him to call the office. Please help him when he calls. Thank you. documented in this encounter Plan of Treatment DateTypeDepartmentCare Team (Latest Contact Info)Ihbkxepxpss74/30/2025 11:00 AM EDTOffice Visit [facility] [place] [address] [place] [address] Padmini Montes MD [address], [address] [phone] documented as of this encounter Goals GoalPatient Goal TypeAssociated ProblemsRecent ProgressPatient-Stated?Author Patient is planning to transition back to SNF at discharge. Chandrika Weber, BELTING CUTTER Note: Evaluation of progress towards goal: Patient is planning to transition back to SNF at discharge. documented as of this encounter Visit Diagnoses Not on filedocumented in this encounter Additional Health Concerns AssessmentNoted TimePHQ-9 Depression Total Score: 8:40 PM EDT documented as of this encounter
--- OUTSIDE RECORDS SUMMARY | 2025-04-01 07:41 | XMS_ITS | Clinical Summary ---
Author Organization [facility] Address [address] [place] [address] Phone Care Team Providers Care Senior Risk Analyst Name Role Phone Jenaro Valadez DO Primary Care Provider Allergies Active AllergyReactionsCriticalityNoted VbqzTqtvgwbzVncowZamwxlh71/23/2023 MlqihnkezrpYqgqetsezhmWrks73/23/2023 Medications MedicationSigDispense QuantityRefillsLast FilledStart DateEnd DateStatus albuterol [...] 24 hr tablet Indications:Coronary artery disease involving [place] coronary artery of [place] heart without angina pectorisTake 1 tablet (25 [...] artery disease)01/01/2024OPD (chronic obstructive pulmonary disease)01/01/2024Shortness of lfcdac5601/01/2024 PVD (peripheral vascular disease)01/01/2024Symptomatic sfqtdzwlkpu68/29/2024 Encounter for pre-operative cardiovascular bnljirsxp70/21/2024Former smoker 10/24/2023iabetes lqikhjha37/23/2023History of PTCA1Hyperlipidemia 03/27/20232605Anjdpvgyhifs57/23/2023 Resolved Problems ProblemNoted DateDiagnosed DateResolved DateEssential gprngwsykbqh37/29/2024 01/01/2024 Encounters DateTypeDepartmentCare MnlmCfwgmztsths64/14/2025Scanned Document [facility] [address] [place] [address] Scanning, Generic Provider 02/15/2025Scanned Document [facility] [address] [place] [address] Scanning, Generic Provider 02/14/2025Scanned Document [facility] [address] [place] [address] Scanning, Generic Provider 02/07/2025Results Follow-Up [address] [place] [phone] Iris Purvis MD Nuclear Stress Test02/05/2025 8:05 AM EDT - 02/05/2025 11:59 PM EDTHospital Encounter [place] [address] [phone] Discharge Disposition: Home02/05/2025 8:05 AM EDT - 02/05/2025 11:59 PM EDT Hospital Encounter at [facility] [address] [phone] Discharge Disposition: Home02/05/2025 8:05 AM EDT - 02/05/2025 11:59 PM EDT Hospital Encounter at [facility] [address] [phone] Discharge Disposition: Home02/05/2025 8:05 AM EDT - 02/05/2025 11:59 PM EDT Hospital Encounter [facility] [address] [phone] Discharge Disposition: Home02/05/2025 8:00 AM EDT - 02/05/2025 8:04 AM EDT Hospital Encounter [facility] [address] [phone] Chest pain, unspecified type Discharge Disposition: Home02/05/2025Travelfrom Last 3 Months Family History Medical HistoryRelationNameCommentsDiabetesMotherHypertensionMotherbypass graft mechanical complicationMotherRelationNameStatusCommentsMother Social History Tobacco UseTypesPacks/DayYears UsedDateSmoking Tobacco: FormerCigarettesQuit: mokeless Tobacco: NeverAlcohol UseStandard Drinks/WeekCommentsNever0 (1 standard drink = 0.6 oz pure alcohol)Sex and Gender InformationValueDate RecordedSex Assigned at BirthNot on fileLegal JeqVtkt86/26/2022 1:33 AM EST Gender IdentityNot on fileSexual OrientationNot on file Last Filed Vital Signs Vital SignReadingTime TakenCommentsBlood Gemdwghz785/8609 9:05 AM EDT Gpdzz348702/05/2025 9:05 AM EDTTemperature--Respiratory Rate--Oxygen Saturation-- Inhaled Oxygen Concentration--Anxcmp97.7 kg (211 lb)01/17/2024 12:34 PM EDT Kmgqmw722.9 cm (6')01/17/2024 12:34 PM EDTBody Mass Index28.6208 12:34 PM EDT Plan of Treatment Health MaintenanceDue DateLast DoneCommentsCT Yoxdpyspqdcm73/27/1966Colonoscopy 1965Colorectal Cancer Cghgyfjwr53/27/1966Creatinine Level1965 Diabetes: Hemoglobin A1C1965Diabetes: Urine Protein Xstfsezqv09/27/1966 FIT-DNA (Cologuard)1965FIT1965HIV Lqruwlflk62/27/1966Lipid Panel 1965Potassium Level1965 0280Nqvopkczjhsob14/27/1966Yearly Adult Physical 1965MMR Vaccines (1 of 1 - Standard series)1966Diabetes: Retinopathy Vocdybopv34/27/1976Hepatitis C Pfvnlnqbv81/27/1984Hepatitis B Vaccines (1 of 3 - 19+ 3-dose series)1984PSA Prostate Cancer Rhnnylgdq94/27/2016Zoster Vaccines (1 of 2)2015Pneumococcal Vaccine (2 of 2 - PCV)03/05/2019 03/05/2018, 02/22/2016Influenza Vaccine (#1)/05/2019, 04/02/2018, 03/05/2018, Additional history existsCOVID-19 Vaccine (3 - season) /04/2021, 0657Lbuqlqwgihiqky99/08/202605/01/2025, 03/03/2024, 4DTaP/Tdap/Td Vaccines (2 - Td or [...] TEST, REGADENOSON W MYOCARDIAL PERFUSION SPECT (MULTI STUDY)Fwbqmou5602/05/2025 10:18 AM EDT Chest pain, unspecified type PRDGWMQEAQGGTA78/08/2025 from Last 3 Months or Most Recently Relevant to Health Maintenance Results * STRESS TEST, REGADENOSON W MYOCARDIAL PERFUSION SPECT (MULTI STUDY) (02/05/2025 10:18 AM EDT)Anatomical RegionLateralityModalityNuclear Medicine Specimen (Source)Anatomical Location / LateralityCollection Method [...] Purvis 02/05/2025 6:05 PM Dictation workstation: ?? [id number] Narrative 02/05/2025 6:05 PM EDT Interpreted By: Iris Purvis and Giannuzzi Michael STUDY: MYOCARDIAL PERFUSION STRESS TEST WITH LEXISCAN ?? Performing facility: [facility], [address] [place] [address], [address], [address] Provider: ??Iris Purvis MD, FACC PCP: ??Dr. Wm Valadez Supervising provider: ??Lui Schmidt DO, FACC ?? INDICATION: Signs/Symptoms: ?? ,R07.9 Chest pain, unspecified ?? HISTORY: Gender: ??M; Age: ??59 y/o ; Height: ??HT 182.9 cm cm; Weight: ?? WT 95.709 kg kg. ?? Chest Pain; ??CAD; ??High Cholesterol; ??Diabetes; ??SOB; ??COPD; Quit smoking 4 years ago. ?? Cardiac catheterization on 2013, 2017. ??PTCA on 2017. ?? COMPARISON: Previous nuclear testing completed at [facility]. ? ACCESSION NUMBER(S): [id number] ?? ORDERING CLINICIAN: IRIS PURVIS ?? TECHNIQUE: [...] PERFUSION STRESS TEST WITH LEXISCAN Performing facility: [facility], [address] [place] [address], [address], [address] Provider: Iris Purvis MD, FACC PCP: Dr. Wm Valadez Supervising provider: Lui Schmidt DO, [facility] INDICATION: Signs/Symptoms: ,R07.9 Chest pain, unspecified HISTORY: Gender: M; Age: 59 y/o ; Height: HT 182.9 cm cm; Weight: WT 95.709 kg kg. Chest Pain; CAD; High Cholesterol; Diabetes; SOB; COPD; Quit smoking 4 years ago. Cardiac catheterization on 2017. PTCA on 2017. COMPARISON: Previous nuclear testing completed at [facility]. ACCESSION NUMBER(S): [id number] ORDERING CLINICIAN: IRIS PURVIS TECHNIQUE: ONE DAY [...] Iris Purvis 02/05/2025 6:05 PM Dictation workstation: [id number] Authorizing ProviderResult TypeResult StatusIris Purvis [facility] [place] STRESS PROCEDURESFinal Result * Echocardiogram (10/10/2024) Narrative 10/10/2024 Ordered by an unspecified provider. Authorizing ProviderResult TypeResult StatusGeneric Provider ScanningCV ECHO PROCEDURESFinal Result from Last 3 Months or Most Recently Relevant to Health Maintenance Insurance Care Teams Team MemberRelationshipSpecialtyStart DateEnd Date Jenaro Valadez DO [address] [place] [address] PCP - GeneralFamily Medicine11/04/24
--- OUTSIDE RECORDS SUMMARY | 2025-04-01 07:41 | XMS_ITS | Patient Health Record ---
Author Organization [facility] Address [address] [place] [address] Support Name Relationship Address Phone Yamileth Feldman Emergency Contact [address] [place] [address] [address] [place] [address] MYRA FELDMAN Guarantor Unknown [phone] Reason For Referral No Information Plan Of Treatment No Information Insurance Providers Payer Name Payer Address Payer Phone Subscriber Number Group Number Insured Name Patient Relationship to Insured Coverage Start Date Coverage End Date [facility] [address] [place] [address] [id number] Alvaro FELDMAN - patient is the insured
--- OUTSIDE RECORDS SUMMARY | 2025-04-01 07:41 | XMS_ITS | Clinical Summary ---
Author Organization [facility] Address [address] [place] [address] Care Team Providers Care Mobile Equipment Operator Name Role Phone Franklin Link Nickolas BRICENO Unavailable [phone] Jenaro Valadez DO Primary Care Provider [phone] Carlos A Bolanos Unavailable [phone] Allergies Active AllergyReactionsCriticalityNoted DateCommentsIsosorbide MononitrateOther: See Gmhpwslk47/02/2015 Headache DkucfxbxritGnigzabxqvo58/02/2014 Medications MedicationSigDispense QuantityRefillsLast FilledStart DateEnd DateStatus metFORMIN [...] today # Disposition: To be transferred to [facility], skilled for acute rehab. Neuro # [...] 5 days) - Continue Vanc and Agustin (WAITER/WAITRESS FIRST CLASS dosing) as well as Acyclovir (for possible [...] Restarted home metoprolol with holding parameters - KBVDI0FIHV - 3, not on AC at this [...] DateObesity, Class I, BMI 30-34.9 E66.904 Mixed pwhjnwawvblcfz69/12/2016 Overview (07/28/2015): Cont home atorva Hrlycsx0808/04/2014Sleep apnea08/04/2014CAD S/P percutaneous coronary angioplasty 11/05/2013 Overview (03/07/2016): CAD (s/p [place] to mPDA and PLV of RCA in 11/2013 and recent PCI on 07/2015 Plan - asa and plavix - atorva 40 mg (due to drug interaction with ranalazine) - metoprolol 50 mg bid - ranolazine Iproeqrcbnxm50/03/2014 Overview (02/13/2016): Continue home amlodipine 10mg QD [...] (05/05/2016): plavix Resolved Problems ProblemNoted DateDiagnosed DateResolved AlliZxenavqqwjthbz30/03/201610/03/2016 Overview (03/07/2016): At presentation patient had AMS and needed intubation to protect airway as patient had copious secretions. Possible causes: Uremic encephalopathy vs Sepsis vs Cardiogenic shock vs WAITER/WAITRESS FIRST CLASS infection vs WAITER/WAITRESS FIRST CLASS disorder Patient came in with S urea>100 [...] to SNF. Atrial fibrillation with rapid ventricular pucldemy90 Overview (03/07/2016): Patient developed A fib with RVR during early hospitalization. Was HD unstable at time. Uremic. Did not respond to BB or calcium channel lamont. Loaded with amiodarone with resolution. A: Resolved. Not in A fib. Currently on metoprolol for HTN. P: Follow up intermittently with EKG at PCP office Jmebdo59Somnolence Overview (03/07/2016): At presentation patient had AMS and needed intubation to protect airway as patient had copious secretions. Possible causes: Uremic encephalopathy vs Sepsis vs Cardiogenic shock vs WAITER/WAITRESS FIRST CLASS infection vs WAITER/WAITRESS FIRST CLASS disorder Patient came in with S urea>100 [...] Conservative management with PT. Discharge to SNF. Elglhgdyxrq19Pain of right upper qgbilpqqm66 Overview (02/16/2016): Persistent, reproducible right arm pain. [...] - Avoid nephrotoxins, trend Cr Right leg uaxffhbn18Unstable dlpzip11 Overview (07/28/2015): Patient is now s/p [place] [...] lower riskNot on file05/10/2020Data from: https://www.neighborhoodatlas.medicine.[facility]/. Last address used for calculationNot on file05/10/2020Sex and Gender Information ValueDate RecordedSex Assigned at BirthNot on fileLegal MqzMwqp54/02/2012 9:56 AM ESTGender IdentityNot on fileSexual OrientationNot on fileOccupationIndustry Job Start DateJob End DateRetiredNot on fileNot on fileNot on file Last Filed Vital Signs Vital SignReadingTime TakenCommentsBlood Lapwmgvw011/7004 9:28 AM EDT Pxdgz7088 9:28 AM FYNDdwjlkwwykw05.8 ??C (98.3 ??F)03/07/2016 2:00 PM EDTRespiratory Gcak7017 9:28 AM EDTOxygen Cvevtasawb66%09/11/2017 9:28 AM EDTInhaled Oxygen Concentration--Mhslcw918.2 kg (254 lb)09/11/2017 9:28 AM HSBPohhjl626.9 cm (6')09/11/2017 9:28 AM EDTBody Mass Index34.45009/11/2017 9:28 AM EDT Plan of Treatment Health MaintenanceDue DateLast DoneCommentsAnxiety Yoikjjouz22/27/1984Depression Pajmhtkri29/27/1984Hepatitis C Ngystkyit09/27/1984DTaP,Tdap,Td Vaccine (1 - Tdap)1984CT Lsmwmvkkcntm64/27/2011Cologuard (FIT-DNA)2010Colonoscopy 2010Colorectal Cancer Bdqrwhxuz18/27/2011Fecal Occult Blood2010 Prostate Cancer Screening Lelkvmuzxx11/27/5813Bmwlymfilwvpf27/27/2011Shingrix Vaccine (1 of 2)2015Pneumococcal Vaccine: 50+ (2 of 2 - PCV)02/21/2017 02/22/2016Diabetes Gnrkeucdm15, 03/06/2016, 03/05/2016, Additional history existsLipid Jdjwpppnh00Covid-19 Vaccine ( season)2025Influenza Vaccine (#1)HIV FyroqjghtPjmuewtts47/24/2016 Procedures Procedure NamePriorityDate/TimeAssociated DiagnosisCommentsCOMPREHENSIVE METABOLIC ZOTOLKOSA94/03/2016 7:19 AM EDT HIV 1/2 COMBO WITH REFLEX TO LSXPUCHLDRMOZQWHNIO52/24/2016 9:41 AM EDT LIPID PANEL, YBYQVGFEskpxxw87/11/2016 4:43 AM EDT from Last 3 Months or Most Recently Relevant to Health Maintenance Results * (ABNORMAL) COMP METABOLIC PANEL (03/07/2016 7:19 AM EDT)ComponentValueRef RangeTest MethodAnalysis TimePerformed AtPathologist SignatureProtein, Total 6.76.3 - 8.0 g/dL03/07/2016 8:28 AM [facility] LABORATORYAlbumin 3.2(L)3.9 - 4.9 g/dL03/07/2016 8:28 AM [facility] Calcium9.28.5 - 10.5 mg/dL03/07/2016 8:28 AM [facility] LABORATORYBilirubin, Total0.50.2 - 1.3 mg/dL03/07/2016 8:28 AM [facility] LABORATORYAlkaline Pgwkttpwnih713(H)36 - 108 U/L1 8:28 AM [facility] VYGGQUUEHNPLT0727 - 40 U/L1 8:28 AM EDT [facility] VXERQXWCVDOlzgmxf301(H)74 - 99 mg/dL03/07/2016 8:28 AM [facility] GJVQTCAOXAZVD327 - 24 mg/dL03/07/2016 8:28 AM EDT [facility] LABORATORYCreatinine1.37(H)0.73 - 1.22 mg/dL03/07/2016 8:28 AM [facility] XDWENYDGZNNthobr323078 - 144 mmol/L1 8:28 AM [facility] LABORATORYPotassium4.43.7 - 5.1 mmol/L 03/07/2016 8:28 AM [facility] IVGIDEYYLAGmxgwgpw5193 - 105 mmol/L1 8:28 AM [facility] QYKOWXHKCVAA23891 - 30 mmol/L1 8:28 AM [facility] LABORATORYAnion Xst759 - 18 mmol/L1 8:28 AM [facility] GEZXADOJVGMCJ1584 - 54 U/L 03/07/2016 8:28 AM [facility] LABOR[facility]ORYeGFR->60 03/07/2016 8:28 AM [facility] LABORATORYeGFR-All Other Races55. 03/07/2016 8:28 AM [facility] LABORATORYComment: eGFR (Estimated GFR) Units of [...] Luz HERRERALABORATORY Final ResultPerforming OrganizationAddressCity/State/ZIP CodePhone Number [facility] [address] [place] [address] * HIV 1,2 COMBO (AG/AB) (02/27/2016 9:41 AM EDT)ComponentValueRef RangeTest MethodAnalysis TimePerformed AtPathologist SignatureHIV 12 Combo (Ag/Ab)Non ReactiveNon Aulxhvkx96/24/2016 8:39 PM [facility]ST[facility] Comment: (NOTE) HIV Information: ??[place] Rev. Code 3701.243(E): This information has been [...] AM EDT Narrative Authorizing ProviderResult TypeResult StatusDaniel Oktaha DOLABORATORYFinal ResultPerforming OrganizationAddressCity/State/[facility] CodePhone Number [facility] [address] [place] [address] * (ABNORMAL) LIPID PANEL BASIC (02/14/2016 4:43 AM EDT)ComponentValueRef Range Test MethodAnalysis TimePerformed AtPathologist RwlgzisdeZflljnrhlbfw244(H)30 - 149 mg/dL02/14/2016 6:48 AM [facility] LABORATORYCholesterol, Rbcni318428 - 199 mg/dL02/14/2016 6:48 AM [facility] HDL Ygjzerxvzrd78(L)>45 mg/dL02/14/2016 6:48 AM [facility] LABORATORYVLDL Vrzwrahfqeh337 - 40 mg/dL02/14/2016 6:48 AM [facility] LABORATORYLDL Cholesterol, Ssjivgzkux1741 - 129 mg/dL02/14/2016 6:48 AM [facility] LABORATORYFasting GfouBicxhfebkd08/11/2016 6:48 AM [facility]ORYTC:HDL Ratio5.50(H)1.00 - 5.00002/14/2016 6:48 AM [facility]ORATORYLDL:HDL Ratio2.910.50 - 3.55 02/14/2016 6:48 AM [facility]ORYNon HDL Fnfdznfwfdp3255 - 159 mg/dL02/14/2016 6:48 AM [facility] LABORATORYSpecimen (Source)Anatomical Location / LateralityCollection Method / VolumeCollection TimeReceived TimeBlood specimen (specimen)BLOOD SPECIMEN / Letvwnf2902/14/2016 4:43 AM EDT02/14/2016 4:44 AM EDT Narrative Authorizing ProviderResult TypeResult StatusObie Leos MDLABORATORYFinal ResultPerforming OrganizationAddressCity/State/ZIP CodePhone Number [facility] [address] [place] [address] from Last 3 Months or Most Recently Relevant to Health Maintenance Insurance Advance Directives * DNR/Comfort Care (Latest Code Status on File) Date ActivatedDate InactivatedComments02/29/2016 11:07 AM02/29/2016 11:08 AM QuestionAnswerCommentsDNR Order Discussed With:* Surrogate Decision Maker Care Teams Team MemberRelationshipSpecialtyStart DateEnd Date Jenaro Valadez [place] [facility] [place] [address] PCP - GeneralFamily Medicine10/26/16 Franklin Link DO ReferringOrthopedics10/26/16 Carlos A Bolanos [address] [place] [address] Primary Staff PhysicianCardiology08/21/18
--- OUTSIDE RECORDS SUMMARY | 2025-04-01 07:54 | XMS_ITS | CCD ---
Author Organization [facility] Care Team Providers Care Engineering Program Analyst Name Role Phone Teresa Lynch Unavailable Unavailable Unavailable Teresa Lynch Unavailable Amina Fagan Unavailable Judd Verona Unavailable Doris Barnes Unavailable DO Teresa Lynch Primary Care Provider JERARDO Mclaughlin Attending Provider [phone] DO Teresa Lynch Attending Provider ELAINE ., DUARTE Attending Unavailable ELAINE ., DUARTE Admitting Unavailable OCNOR, DR LYSSA Blum Consulting Unavailable RORY, DR [...] Unavailable DO Teresa Lynch Primary Care Provider [phone] MD Abdullahi Wilson Emergency Provider DO Teresa Lynch Primary Care Provider MD Abdullahi Wilson Emergency Provider JERARDO Mclaughlin Attending Provider JERARDO Mclaughlin Referring Provider [phone] LINDSEY Soto Attending Provider [phone] DO Teresa Lynch Primary Care Provider Teresa Lynch DO Primary Care Provider MIKE MONTES Attending Unavailable PAULA SOTO Referring Unavailable SIMONMIKE PENNINGTON Admitting Unavailable SIMONMIKE Attending Unavailable ONLY), [facility] (INPATIENT Consult ing Unavailable DERISO, ROSIE C Referring Unavailable MAAME RUCKER Referring Unavailable DERISO, ROSIE Snehal Referring Unavailable DO Teresa Lynch Primary Care Provider [phone] Mike Montes Admitting Unavailable Mike Montes Attending [...] Attending Provider MD Kait Dan Emergency Provider [phone] DO Teresa Lynch Primary Care Provider MD João Powell Admit Provider MD João Powell Attending Provider MD Kait Dan Emergency Provider DO Teresa Lynch Primary Care Provider MD João Powell Admit Provider MD João Powell Attending Provider MD Lyssa Sharpe Other Provider MD Mike Burleson Other Provider LINDSEY Soto Attending Provider MD Kait Dan Emergency Provider DO Teresa Lynch Primary Care Provider [phone] MD João Powell Admit Provider MD João Powell Attending Provider [phone] MD Lyssa Sharpe Other Provider MD Mike Burleson Other Provider DO Bonilla Rubin Emergency Provider DO Luther Dozier Other Provider MD Job James Other Provider MD Remberto Ervin Attending Provider DO Scottie Bonilla Emergency Provider DO Jacoby Luther M Other Provider MD Job James Other Provider [phone] MD Remberto Ervin Attending Provider Kait Dan MD Emergency Provider Teresa Lynch DO Primary Care Provider [phone] Andre HERRERA, João Admit Provider Andre HERRERA, João Attending Provider [phone] Lyssa Sharpe MD Other Provider [phone] Mike Burleson MD Other Provider Scottie [...] Unavailable Unavailable Primary Care Provider Unavailabl e Tereas Lynch DO Primary Care Provider Negro Hu MD Attending Provider Teresa Lynch DO Primary Care Provider Negro Hu MD Attending Provider [phone] Francisco Duncan MD Emergency Provider Marge Andino MD Admit Provider Sina HERRERA, Marge Attending Provider [phone] Maximiliano HERRERA, Kevon Baum Attending Provider Gracia [...] Provider Shaheed Barboza MD Other Provider Gabby [facility], Maryann Simmons Other Provider Teresa Lynch DO Primary Care Provider [phone] Teresa Lynch DO Attending Provider Maurice Francis [...] Unavailable Teresa Lynch DO Primary Care Provider [phone] Francisco Duncan MD Emergency Provider [phone] Marge Andino MD Admit Provider Kevon Viera MD Attending Provider Amina Fagan MD Other Provider Jez Dominguez PA-C Emergency Provider [phone] Abdullahi Canchola DO Admit Provider Abdullahi Canchola DO Attending Provider [phone] Teresa Lynch DO Attending Provider [phone] Maurice Francis MD Other Provider BERNARD DE LA CRUZ Attending Unavailable TERESA LYNCH Primary Care Unavailable Unavailable Primary Care Provider Unavailprachi e Teresa Lynch DO Primary Care Provider [phone] PASCALE ARNOLD Referring Unavailable TERESA LYNCH Primary Care Unavailable PASCALE ARNOLD Referring Unavailable TERESA LYNCH P Primary Care Unavailable SIMON, MOHAMED F Attending Unavailable MARYBEL VANG Attending Unavailable Yeyo ROWE Attending Unavailable MARYBEL VANG Attending Unavailable Yeyo ROWE Attending Unavailable Allergies Allergy ClassificationReported Allergen(s)Allergy TypeDate of OnsetReaction(s) Facility (20 sources)natural latex rubber; Translations: [LATEX]Allergy to substance (finding)28-54-6139Rdsemui (finding), Eruption of skin (disorder)[facility] (20 sources)Penicillins; Translations: [Penicillins]Allergy to drug (finding) 04-11-7898Ntnzberjjsfip reaction (disorder)[facility] (20 sources)Acetaminophen / oxyCODONEDrug Buuypht65-34-2961wjiuflyhXpvos [place] [email or web address] Other (20 sources)tamsulosin; Translations: [TAMSULOSIN]Drug Rtqsjrq24-26-4111crari [facility] (20 sources)PENICIILINPropensity to adverse reactionsSWELLING OF AIRWAYSt. Francis Hospital [email or web address] Other (20 sources)Acetaminophen; Translations: [ACETAMINOPHEN]Drug Eomvdrv99-02-7211 VomitingFirProtestant [facility]acon[facility] (20 sources)oxyCODONE; Translations: [Oxycodone]Drug Hzcxfxn58-03-5404CnktiqfgC[facility] (1 source)PenicillinsDrug allergy (disorder)26-12-2146Muv [facility] (20 sources)Penicillin G; Translations: [penicillin G benzathine]Drug Allergy [facility] (12 sources)Penicillin; Translations: [Penicillin]Drug Allergyanaphylaxis, Anaphylactoid reaction (disorder)[facility] (20 sources)LatexAllergy to obobcinal58-28-5624Qnletdb, Dermatitis, Itching, RashUnAdena Health System (20 sources)PenicillinsDrug Vcsxfeu98-61-1627Givdbkwpdfu, [facility] (17 sources)Isosorbide; Translations: [ISOSORBIDE MONONITRATE]Drug Allergy 58-16-0160Iylwi (See Comments)[facility] (2 sources)Acetaminophen / oxyCODONE; Translations: [OXYCODONE-ACETAMINOPHEN] Drug Iazxetp29-37-0785[facility] (10 sources)Isosorbide DinitrateDrug Xwokmeh33-16-2508Podow, Other (See Comments)[facility] (1 source)LatexPropensity to adverse qfrdxeakv38-42-9491Kuucylszar, Itching, Rash, UnknownNOMS Healthcare (1 source)PenicillinsDrug Axaqcztqdzr72-39-3170Gohmrfysowk, HivesNOMS Healthcare (11 sources)Propoxyphene; Translations: [PROPOXYPHENE]Drug Cutuhzj43-45-6366YRU[facility] (1 source)LatexDrug allergy (disorder)07-80-4992GxctgxmabGal[facility] (1 source)PenicillinsDrug allergy (disorder)38-96-5735SorugfqdcGalion Hospital [facility] (1 source)tamsulosinDrug Bpsrakl37-52-9937NbwipyrcaGalion Hospital [facility] (10 sources)PenicillinsPropensity to adverse reactions to eppr25-64-8269 Anaphylaxis, [facility] (1 source)Isosorbide Dinitrate; Translations: [ISOSORBIDE DINITRATE]Drug Allergy 44-34-9946FqqOcrwmo Repository Medications Current Medications MedicationDrug Class(es)DatesSig (Normalized)Sig (Original)acetaminophen 325 mg / HYDROcodone bitartrate 5 mg oral tablet (20 sources)Opioid AgonistStart: 14-32-9705Cnakp: 06-11-2024 End: 65-10-4271Znmza: 06-11-2024 End: 49-36-9990hsce 1 tablet by mouth every four to six hours as needed for pain Hydrocodone-Acetaminophen 5-325 mg tablet Discontinued 1 TAB PO EVERY 4-6 HOURS as needed for pain 6 2 July 16, 2024 August 12, 2024 12:27pmStart: 07-26-2023 End: 89-00-1240Yxqtt: 07-26-2023 End: 67-50-6166gfqh 1 tablet by mouth four times daily as neededHydrocodone- Acetaminophen 5-325 mg tablet Discontinued TAB PO July 26, 2023 1:00am March 03, 2024 2:28pm FreeTextSi tablet Orally QID PRN; Note: Source Status: Refill; Refills: 0; Provider: Rory Eason PStart: 47-08-6883mlde 1 tablet by mouth four times daily as neededHYDROcodone-Acetaminophen 5-325 MG 1 tablet Orally QID PRN Apr, ActiveStart: 65-25-3114izac 1 tablet by mouth every twelve hoursHYDROcodone-Acetaminophen 5-325 MG 1 tablet as needed Orally every 12 hrs Nov, ActiveStart: 82-59-5260foub 1 tablet by mouth every six hoursStart: 02-66-2085qaue 1 tablet by mouth every six hoursHYDROcodone- Acetaminophen 5-325 MG 1 tablet as needed Orally every 6 hrs Apr, Active Start: 22-82-8365lutf 1 tablet by mouth every six hoursHYDROcodone-Acetaminophen 5-325 MG 1 tablet as needed Orally every 6 hrs Feb, ActiveStart: 98-68-7016gnhx 1 tablet by mouth every six hoursStart: 07-24-2019 End: 05-55-7046Afofc: 07-24-2019 End: 70-55-4288mokw 1 tablet by mouth every six hours as needed for pain Hydrocodone-Acetaminophen 5-325 mg tablet Discontinued 1 TAB PO Q6H as needed for Pain July 24, 2019 1:00am July 14, 2020 12:39pmStart: 10-10-2014 Mason 325 mg-5 mg oral tablet 1 tab(s), Oral, q4hr for pain, 12 tab(s), Refill(s) 0 Start Date: 10/10/14 Status: [id number] 200 actuat albuterol 0.09 mg/actuat metered dose inhaler (20 sources)beta2-Adrenergic AgonistStart: 16-13-5649pqyw 2 puff(s) by inhalation every four hours as neededalbuterol (PROAIR HFA) 90 mcg/actuation inhaler Inhale 2 puffs every 4 (four) hours as needed. 11/23/2022 ActiveStart: 55-43-9072YopGus HFA Inhalation, q6hr Shortness of breath or wheezing Start Date: 11/23/22 Status: Ordered Repeat number: 1Start: 40-53-6106EezAbt HFA Inhalation, q6hr Shortness of breath or wheezing Start Date: 11/23/22 Status: OrderedStart: 83-63-4020FxbJmt HFA Inhalation, q6hr Start Date: 11/23/22 Status: OrderedStart: 59-80-1527Eidil: 17-62-0953vxky 1 puff(s) by inhalation every six hours as neededAlbuterol Sulfate (Proair Hfa) 90 mcg/actuation Hfa Aerosol Inhaler Active 2 PUFF INHALATION Every 6 hours as needed for Shortness Of Breath June 28, 2019 1:00amStart: 38-97-3212sabt 1 puff(s) by inhalation every four to six hoursAlbuterol Sulfate (Proair Hfa) 90 mcg/actuation Hfa Aerosol Inhaler Active 2 PUFF INHALATION EVERY 4-6 HOURS June 28, 2019 1:00amStart: 45-54-0353lyzf 2 puff(s) by inhalation every four hours [...] mg oral tablet (1 source)Xanthine Oxidase InhibitorStart: 75-29-1219zjmcjjruxckiw hydrochloride 25 mg oral tablet (20 sources)Tricyclic AntidepressantStart: 07-12-2023 End: 74-98-3526hupj 1 tablet by mouth once dailyamitriptyline (ELAVIL) 25 mg tablet Take 1 tablet (25 mg total) by mouth nightly. 09/03/2023 ActiveStart: 07-12-2023 End: 47-42-5484znms 4 tablets by mouth once dailyAmitriptyline 25 mg tablet Discontinued 100 MG PO Daily July 12, 2023 1:00am March 062:39pm Start: 07-12-2023 End: 97-22-3109irzu 100 mg by mouth once dailyAmitriptyline Discontinued [...] sources)Platelet Aggregation Inhibitor, Nonsteroidal Anti-inflammatory Drug Start: 80-52-5715bgtr 1 tablet by mouth in the morningaspirin 81 mg Take 1 tablet (81 mg total) by mouth in the morning. 10/06/2023 ActiveStart: 06-22-2021 take 1 tablet by mouth once dailyAspirin Low Dose 81 MG Oral Tablet Delayed Release TAKE 1 TABLET DAILY. Quantity: 90 Refills: 3 Ordered: 26-Oct-2021 Raulito Inman MD Start : 22-Jun-2021 Active fill at patients requestStart: 04-01-2018 End: 36-53-1318Sbyuxej 81 mg Tab-EC (14 sources)Start: 22-94-5848Ihicxes 81 mg Tab-EC Refills(s) 0 Start Date: 07/10/14 Status: Orderedatorvastatin 80 mg oral tablet (20 sources)HMG-CoA Reductase InhibitorStart: 03-13-2024 End: 79-69-4115Aomhj: 07-10-2014 End: 21-51-0015efqn 1 tablet by mouth in the morningatorvastatin (LIPITOR) 80 mg tablet Take 1 tablet (80 mg total) by mouth in the morning. 10/06/2023ctive Blood Glucose Meter kit (20 sources)Start: 49-24-5072Oxcpf: 11-33-1117Uhhrg Glucose Meter kit as directed BID Dec, ActiveBlood Glucose Monitoring Suppl (ONE TOUCH ULTRA 2) w/Device kit (1 source)Start: 57-10-7680Uihbr Glucose Monitoring Suppl (ONE TOUCH ULTRA 2) w/Device kit USE TO TEST BLOOD SUGARS ONCE A DAY08/17/2023 ActiveBlood Pressure Kit - (20 sources)Start: 31-32-6075Qqhtt: 09-27-3310Ujbzl Pressure Kit - check bp 1-2 times a day and prn Sep, Hjpoys598 actuat budesonide 0.16 mg/actuat / formoterol fumarate 0.0045 mg/actuat metered dose inhaler (20 sources)Corticosteroid, beta2-Adrenergic AgonistStart: 61-71-3849Tbpzl: 57-39-1078wbzd 1 puff(s) by inhalation twice dailyBudesonide-Formoterol 160-4.5 mcg/actuation HFA aerosol inhaler Active 2 PUFF INHALATION Twice daily April 05, 2024 12:00amStart: 03-13-2024 End: 95-18-0632Gdjju: 03-13-2024 End: 61-21-3513xwxr 1 puff(s) by inhalation twice dailyBudesonide-Formoterol (Symbicort) 80-4.5 mcg/actuation Hfa Aerosol Inhaler Discontinued 2 PUFF INHAL ATION Twice daily 0 March 13, 2024 12:00am April 05, 2024 1:45pmStart: 07-12-2023 End: 04-81-9033Fscnb: 07-12-2023 End: 94-10-1139Smrzxbvvys-Formoterol (Symbicort) 160-4.5 mcg/actuation HFA aerosol inhaler Discontinued 1 INH INHALATION Twice daily July 12, 2023 1:00am March 03, 2024 2:28pmclarithromycin 500 mg oral tablet (6 sources)Macrolide AntimicrobialStart: 19-71-5690wsle 1 tablet by mouth every twelve hoursClarithromycin 500 MG 1 tablet Orally every 12 hrs for 10 day(s) Jul, Activeclopidogrel 75 mg oral tablet (20 sources)P2Y12 Platelet InhibitorStart: 07-10-2014 End: 83-51-3151fpbdkeklcrvyd 10 mg oral tablet (20 sources)Sodium-Glucose Cotransporter 2 InhibitorStart: 11-23-2022 End: 88-87-4682mkhp 1 tablet by mouth once daily in the morningJardiance 10 mg oral tablet 10 mg = 1 tab(s), Oral, qAM Start Date: 11/23/22 Status: Ordered Repeat number: 1Start: 16-65-9105hwgb 1 tablet by mouth every twenty-four hours Jardiance 25 MG 1 tablet Orally Once a day for 30 day(s) Sep, Active Ensure (3 sources)Start: 03-47-3169Mdtteh 237 mL, Oral, BIDWM, Refill(s) 0 Start Date: 02/21/24 Status: Orderedfamotidine 40 mg oral tablet (14 sources)Histamine-2 Receptor AntagonistStart: 69-66-2905qbvd 1 tablet by mouth once daily at bedtimefamotidine 40 mg Tab 40 mg = 1 tab(s), Oral, Once a day (at bedtime), # 30 tab(s), Refills(s) 0 Start Date: 07/10/14 Status: Ordered fenofibrate 160 mg oral tablet (14 sources)Peroxisome Proliferator Receptor alpha AgonistStart: 83-44-1168kauy 1 tablet by mouth once dailyfenofibrate 160 mg oral tablet 160 mg = 1 tab(s), Oral, Daily, Refills(s) 0 Start Date: 10/31/13 Status: OrderedFlash Glucose Scanning [place] (Freestyle Jigar 2 [place]) misc (12 sources)Start: 42-97-6519Csdze Glucose Scanning [place] (Freestyle Jigar 2 [place]) misc Active 0 .Route December 27, 2023 11:00pm As directedStart: 82-03-5631Zdxsm Glucose Scanning [place] (Freestyle Jigar 2 [place]) misc Active 0 .Route 1 December 28, 2023 12:00am As directedStart: 86-42-0633Asbqz Glucose Scanning [place] (Freestyle Jigar 2 [place]) misc Active 0 .ROUTE 1 December 28, 2023 12:00am As directedFlash Glucose Sensor (Freestyle Jigar 2 Sensor) kit (12 sources)Start: 19-96-6532Jcepp Glucose Sensor (Freestyle Jigar 2 Sensor) kit Active 0 .Route 1 December 27, 2023 11:00pm As directedStart: 91-46-9515Bxefu Glucose Sensor (Freestyle Jigar 2 Sensor) kit Active 0 .Route 1 December 28, 2023 12:00am As directedStart: 23-47-6879Ryjhe Glucose Sensor (Freestyle Jigar 2 Sensor) kit Active 0 .ROUTE 1 December 28, 2023 12:00am As directedfurosemide 40 mg oral tablet (20 sources)Loop DiureticStart: 07-26-2023 End: 43-52-7288ebhv 1 tablet by mouth once dailyfurosemide (Lasix) 40 mg tablet Indications: Localized edema Take 1 tablet (40 mg) by mouth once daily. 90 tablet 3 04/02/2024 04/02/2025 ActiveStart: 07-12-2023 End: 15-18-7598Jhfth: 07-12-2023 End: 02-40-9332ytyy 1 tablet by mouth once daily in the morningFurosemide (Lasix) 20 mg tablet Discontinued 20 MG PO Every morning July 12, 2023 1:00am March 03, 2024 2:29pmStart: 03-13-2019 End: 90-38-7292Jfeiu: 03-13-2019 End: 96-46-3949qiio 1 tablet by mouth once dailyFurosemide 20 mg Tablet Discontinued 20 MG PO Daily March 13, 2019 12:00am July 14, 2020 12:39pm gabapentin 300 mg oral capsule (1 source)Anti-epileptic AgentStart: 11-14-2023 End: 46-59-6171hghw 1 capsule by mouth three times dailygabapentin (NEURONTIN) 300 mg capsule Indications: Post-op pain Take 1 capsule (300 mg total) by mouth 3 (three) times a day for 7 days. 21 capsule 11/14/2023 11/21/2023 Active glimepiride 2 mg oral tablet (20 sources)SulfonylureaStart: 10-31-2013 End: 59-40-4857zjyacIUKFAEpvopaqmz 12.5 mg / valsartan 80 mg oral tablet (20 sources)Thiazide Diuretic, Angiotensin 2 Receptor BlockerStart: 11-05-2024 Start: 08-11-2024 End: 76-33-7233Pdqfy: 04-05-2024 End: 83-13-1152Louhr: 03-13-2024 End: 75-61-6841Xvuip: 03-13-2024 End: 98-64-0604bwhn 1 tablet by mouth once dailyValsartan-Hydrochlorothiazide 80-12.5 mg tablet Discontinued 1 TAB PO Daily April 05, 2024 3:28pm August 11, 2024 4:35amStart: 07-12-2023 End: 79-98-1544Qtmom: 11-23-2022 End: 71-82-9615ibhr 1 tablet by mouth once dailyValsartan-Hydrochlorothiazide (Diovan [...] mg oral tablet (20 sources)AntihistamineStart: 05-06-2024 End: 01-83-7952Hlefk: 04-19-2024 End: 68-21-8842Tixgcme Lispro (14 sources)Insulin AnalogStart: 88-89-7950mdcoboc lispro 0-10 Unit(s), SubCutaneous, QIDACHS, Refills(s) 0 Start Date: 02/21/24 Status: Ordered Repeat number: 1Start: 26-91-8009xsjrvqm lispro 0-10 Unit(s), SubCutaneous, QIDACHS, Refills(s) 0 Start Date: 02/21/24 Status: OrderedStart: 02-20-2024 End: 44-88-4215DoggOXC Sliding Scale 0-10 Unit(s), Injection-Insulin, SubCutaneous, Start date 02/20/24 4:30:00 PM EDT Start Date: 02/20/24 Stop Date: 02/20/24 Status: Completedinsulin lispro (HumaLOG) 100 unit/mL injection Inject under the skin. Take as directed per insulin instructions. ActiveInsulin Lispro 100 UNIT/ML solution Inject under the skin. Take as directed per insulin instructions. ActiveInsulin Syringe,Safety Needle (1 source)Start: 59-01-6909Hmhyqbb Syringe,Safety Needle Active 0 .Route 100 March 29, 2024 12:00am As bfyqjfck07 hr isosorbide mononitrate 30 mg extended release oral tablet (20 sources)Nitrate VasodilatorStart: 02-69-0968Uoydl: 01-11-2023 End: 66-00-0874Vyqix: 68-65-5865smde 1 tablet by mouth once daily in the morning Imdur 60 mg ER Tab 60 mg = 1 tab(s), Oral, qAM, # 30 tab(s), Refills(s) 0 Start Date: 07/11/14 Status: OrderedJuven packet (3 sources)Start: 03-33-6729Gdqjw packet Oral, BID, Refill(s) 0 Start Date: 02/21/24 Status: Orderedloperamide hydrochloride 2 mg oral tablet (3 sources)Opioid Agonisttake 1 tablet by mouth four times daily as needed for diarrhealoperamide (Imodium A-D) 2 MG tablet Take 1 tablet (2 mg) by mouth 4 times a day as needed for diarrhea. Activemagnesium oxide 400 mg oral tablet (20 sources)Start: 10-23-6204jlwt 1 tablet by mouth once dailymagnesium oxide (Mag-Ox) 400 mg tablet Indications: Palpitations Take 1 tablet (400 mg) by mouth once daily. 12/26/2024 ActiveStart: 05-07-2024 End: 77-94-1491Lxmiz: 03-13-2024 End: 07-55-7737vdeyjdpob oxide (Mag-Ox) 400 MG tablet 1 tablet (400 mg) 3 times a day. ActivemetFORMIN hydrochloride 1000 mg oral tablet (20 sources)BiguanideStart: 06-06-2012 End: 77-18-5640emvi 1 tablet by mouth every twelve hoursmetFORMIN (GLUCOPHAGE) 1000 mg tablet Take 1 tablet (1,000 mg total) by mouth every 12 (twelve) hours. Activetake 1 tablet by mouth every twelve hoursmetFORMIN (Glucophage) 1,000 mg tablet Take 1 tablet (1,000 mg) by mouth every 12 hours. Activemetoprolol tartrate 25 mg oral tablet (20 sources)beta-Adrenergic BlockerStart: 03-13-2024 End: 85-12-0681Ncskz: 03-13-2024 End: 87-93-7182Pcfqm: 03-13-2024 End: 68-10-3100nfvg 1 tablet by mouth twice dailyMetoprolol Tartrate 25 mg Tablet Discontinued 25 MG PO Twice daily 0 March 13, 2024 12:00am August 11, 2024 4:40am Hold for SBPStart: 03-06-2024 End: 99-13-9177Btrlo: 03-06-2024 End: 52-24-1439Yxyhfyvrps Tartrate 100 mg tablet Discontinued 12.5 MG PO Twice daily March 06, 2024 12:38pmOct2023 2:53pmStart: 02-21-2024 End: 33-24-9420fspkvxliky tartrate 100 mg Tab 50 mg = 0.5 tab(s), Tab, Oral, Start date 02/21/24 9:00:00 AM EDT, 02/12/24 20:07:00 EDT Start Date: 02/21/24 Stop Date: 02/21/24 Status: CompletedStart: 01-01-2024 End: 98-84-6495pgru 1 tablet by mouth once dailymetoprolol succinate XL (Toprol- XL) 25 mg 24 hr tablet Indications: Coronary artery disease involving [place] coronary artery of [place] heart without angina pectoris Take 1 tablet (25 mg) by mouth once daily. Do not crush or chew. 90 tablet 3 01/01/2024 ActiveStart: 04-01-2018 End: 13-77-7719svlxuytdrr tartrate 100 mg Tab 50 mg = 0.5 tab(s), Oral, BID, Refills(s) 0 Start Date: 02/12/24 Status: Ordered Repeat number: 1Start: 04-01-2018 End: 67-49-5361Oukmv: 04-01-2018 End: 50-96-7528wwoo 12.5 mg by mouth twice dailyMetoprolol Tartrate Discontinued 12.5 MG PO Twice daily 180 March 06, 2024 12:38pm March 08, 2024 2:53pm Start: 23-01-0890hndn 100 mg by mouth twice dailyMetoprolol Tartrate Active 100 MG PO Twice daily April 01, 2018 12:00amStart: 74-04-5405nauqgrrdzs 100 mg, BID, Refills(s) 0 Start Date: 01/24/11 Status: Ordered End: 45-31-9369mkve 0.5 tablet by mouth twice dailymetoprolol tartrate (Lopressor) 100 mg tablet Take 0.5 tablets (50 mg) by mouth 2 times a day. 10/23 Discontinued (Therapy completed)24 hr nicotine 0.875 mg/hr transdermal system (8 sources)Cholinergic Nicotinic AgonistStart: 88-64-0910Jfokn: 02-21-2024 nicotine 14 mg/24 hr Transderm ER Film TransDermal, Daily, Refill(s) 0 Start Date: 02/21/24 Status: Ordered Repeat number: 1nitroglycerin 0.4 mg sublingual tablet (20 sources)Nitrate VasodilatorStart: 40-06-3712pynunxysbkrni (Nitrostat) 0.[address] under the tongue. 11/03/2021 ActiveStart: 07-10-2014 End: 75-57-5474vwukuramipdsk (Nitrostat) 0.[address] 1 tablet (0.4 mg total) under the tongue every 5 (five) minutes as needed for chest pain. Active omeprazole 40 mg delayed release oral capsule (20 sources)Proton Pump InhibitorStart: 70-07-7502Eqwwxtwj Oral, Daily Start Date: 11/23/22 Status: OrderedStart: 07-24-2019 End: 23-61-2917Qwsmd: 07-24-2019 End: 23-70-2872gkhv 40 mg by mouth once dailyOmeprazole Discontinued 40 MG PO Daily July 24, 2019 1:00am July 26, 2023 5:38pmStart: 38-75-7966xons 20 mg by mouth once dailyOmeprazole Active 20 MG PO Daily July 24, 2019 1:00amStart: 01-02-2018 End: 20-14-1732ufhs 2 tablets by mouth twice daily before mealtimeomeprazole OTC (PriLOSEC OTC) 20 mg EC tablet Take 2 tablets (40 mg) by mouth 2 times a day before meals. Do not crush, chew, or split. ActiveONETOUCH ULTRA2 METER misc (20 sources)Start: 48-66-6830YKRYBVXL ULTRA2 METER misc 1 Unit by subconjunctival route in the morning. 08/17/2023 SuspendedStart: 08-17-2023 ONETOUCH ULTRA2 METER misc 1 Unit by subconjunctival route in the morning. 08/17/2023 Activepregabalin 75 mg oral capsule (20 sources)Start: 76-03-6581qgkj 3 capsules by mouth three times daily Pregabalin (Lyrica) 75 mg capsule Active 225 MG PO Three times daily October 10, 2024 12:00amStart: 08-12-2024 End: 98-72-7467gcpw 1 capsule by mouth three times dailyPregabalin (Lyrica) 75 mg capsule Discontinued 75 MG PO Three times daily 3 August 30, 2024 12:00am October 10, 2024 6:58pmStart: 03-13-2024 End: 77-03-2565ixjb 1 capsule by mouth twice dailyPregabalin 50 mg Capsule Discontinued 50 MG PO Twice daily 0 March 13, 2024 12:00am April 05, 2024 1:35pmStart: 01-24-2011 End: 72-53-9283xuszadafzq (LYRICA) 200 mg capsule Take 1 capsule (200 mg total) by mouth in the morning and 1 capsule (200 mg total) at noon and 1 capsule (200 mg total) before bedtime. 09/28/2023 ActiveProAir HFA 108 (90 Base) MCG/ACT (20 sources)Start: 02-51-7808xokz 2 puff(s) by inhalation every four hours as neededProAir HFA 108 (90 Base) MCG/ACT 2 puffs as needed Inhalation Q4H PRN PRN Dec, ActiveStart: 28-96-7984gcfo 2 puff(s) by inhalation every four hours as neededrivaroxaban 2.5 mg oral tablet (6 sources)Factor Xa InhibitorStart: 11-08-2023 End: 18-91-0019cksh 1 tablet by mouth in the morning, then take 1 tablet by mouth at bedtimerivaroxaban (XARELTO) 2.5 mg tablet Take 1 tablet (2.5 mg total) by mouth in the morning and 1 tablet (2.5 mg total) before bedtime. Do all this for 30 days. 60 tablet 11/08/2023 12/08/2023 Activesennosides, correction 8.6 mg oral tablet (3 sources)Start: 52-16-0548elfm 1 tablet by mouth twice dailysenna 8.6 mg Tab 8.6 mg = 1 tab(s), Oral, BID, Refills(s) 0 Start Date: 02/21/24 Status: Ordered sildenafil 100 mg oral tablet (20 sources)Phosphodiesterase 5 InhibitorStart: 04-05-2024 End: 44-99-8982Vyngk: 03-08-2024 End: 33-91-4134Itxzb: 03-13-2019 End: 96-12-6464Dognb: 05-07-2018 End: 90-69-8424tchx 1 tablet by mouth once dailySildenafil (Viagra) 100 mg Tablet Discontinued 100 MG PO Daily March 13, 2019 12:00am March 03, 2024 2:29pmSITagliptin 100 mg oral tablet (20 sources)Dipeptidyl Peptidase 4 InhibitorStart: 07-09-2020 End: 10-25-6780sakmfehdru hydrochloride 0.4 mg oral capsule (20 sources)alpha-Adrenergic BlockerStart: 93-14-3503jfqr 1 capsule by mouth twice dailytamsulosin 0.4 mg Cap 0.4 mg = 1 cap(s), Oral, BID, # 180 cap(s), Refills(s) 3, Pharmacy: [facility]/pharmacy #[id number], 182, cm, 09/27/24 10:46:00 EDT, Height/Length Dosing, 88, kg, 09/27/24 10:46:00 EDT, Weight Dosing Start Date: 09/27/24 Status: Ordered Quantity: 180.0 Unit: cap(s) Repeat number: 4Start: 02-21-2024 End: 29-10-9925xccwvgpmkq 0.4 mg Cap 0.4 mg = 1 cap(s), Cap, Oral, Start date 02/21/24 9:00:00 AM EDT, 02/12/24 18:02:00 EDT Start Date: 02/21/24 Stop Date: 02/21/24 Status: CompletedStart: 24-95-1946iqrn 1 capsule by mouth once daily tamsulosin (FLOMAX) 0.4 mg capsule Take 1 capsule (0.4 mg total) by mouth nightly. 06/26/2023 ActiveStart: 02-14-2023 End: 81-22-7976xdeq 1 capsule by mouth at bedtimetamsulosin (FLOMAX) 0.4 mg capsule Take 1 capsule (0.4 mg total) by mouth in the morning and at bedtime. 06/26/2023 Activetake 1 capsule by mouth once dailyTamsulosin HCl - 0.4 MG Oral Capsule TAKE 1 CAPSULE Daily Quantity: 0 Refills: 0 Ordered: 15-Feb-2023 DO ActiveTENS Unit (20 sources)Start: 73-14-0338Xixpu: 03-24-0980QBKW Unit as directed Use as directed. Jan, Qgjhex86 actuat tiotropium 0.0025 mg/actuat inhalation spray (20 sources)AnticholinergicStart: 41-91-8610wthu 2 puff(s) by mouth once daily Spiriva Respimat 2.5 MCG/ACT inhaler INHALE 2 PUFFS BY MOUTH ONCE DAILY 12/20/2022 ActiveStart: 41-01-9474lbgg 1 capsule by inhalation once in the morningtiotropium (SPIRIVA WITH HANDIHALER) 18 mcg per inhalation capsule Place 1 capsule (18 mcg total) into inhaler and inhale in the morning. 11/23/2022 ActiveStart: 02-61-2693hsec 1 capsule by inhalation once dailytiotropium (SPIRIVA [...] Quantity: 90.0 Unit: cap(s) Repeat number: 1Start: 51-26-8301Qufxnpn 18 mcg Cap 18 mcg = 1 cap(s), Inhalation, Daily, Using only ONE capsule, have the patient inhale twice, # 90 cap(s) Start Date: 11/23/22 Status: Ordered End: 33-36-1662igtk 2 puff(s) by inhalation twice dailytiotropium (Spiriva [...] Refills: 0 Ordered: 26-Oct-2021 DO Active Tiotropium Anahola (Spiriva With Handihaler) 18 mcg capsule, w/inhalation device (20 sources)Start: 60-74-3667porx 1 capsule by inhalation once dailyTiotropium Anahola (Spiriva With Handihaler) 18 mcg capsule, w/inhalation device Active 1 CAP INHALATION Daily March 02, 2024 11:00pm puncture 1 cap using device; one dose = 2 inhalationsStart: 50-36-2750ozda 1 capsule by inhalation once daily Tiotropium Anahola (Spiriva With Handihaler) 18 mcg capsule, w/inhalation device Active 1 CAP INHALATION Daily March 03, 2024 12:00am puncture 1 cap using device; one dose = 2 inhalationsStart: 07-12-2023 End: 22-34-9669rppm 1 capsule by inhalation once dailyTiotropium Anahola (Spiriva With Handihaler) 18 mcg capsule, w/inhalation device Discontinued 1 CAP INHALATION Daily July 12, 2023 12:00am March 03, 2024 1:29pm puncture 1 cap using device; one dose = 2 inhalationsStart: 07-12-2023 End: 24-87-7243cmiy 1 capsule by inhalation once dailyTiotropium Anahola (Spiriva With Handihaler) 18 mcg capsule, w/inhalation device Discontinued 1 CAP INHALATION Daily July 12, 2023 1:00am March 03, 2024 2:29pm puncture 1 cap using device;one dose = 2 inhalationsStart: 02-57-2888bbgo 1 capsule by inhalation once dailyTiotropium Anahola (Spiriva With Handihaler) 18 mcg capsule, w/inhalation device Active 1 CAP INHALATION Daily July 12, 2023 1:00am puncture 1 cap using device; one dose = 2 inhalationsStart: 07-12-2023 take 1 capsule by inhalation once dailyTiotropium Anahola (Spiriva With Handihaler) 18 mcg capsule, w/inhalation device Active 1 CAP INHALATION Daily July 12, 2023 12:00am puncture 1 cap using device; one dose = 2 inhalations tiZANidine 4 mg oral tablet (20 sources)Central alpha-2 Adrenergic AgonistStart: 19-34-9949Sxceo: 07-12-2023 End: 07-79-8081Aeqqj: 11-23-2022 End: 04-19-7862ysIELulvrx (ZANAFLEX) 4 mg capsule Take 1 capsule (4 mg total) by mouth as needed in the morning and 1 capsule (4 mg total) as needed at noon and 1 capsule (4 mg total) as needed in the evening for muscle spasms. 11/23/2022 ActiveStart: 70-48-0135fdxe 1 capsule by mouth three times daily as needed for muscle spasmstiZANidine (ZANAFLEX) 4 mg capsule Take 1 capsule (4 mg total) by mouth 3 (three) times a day as needed for muscle spasms. 11/23/2022 ActiveStart: 00-93-3248hqql 1 tablet by mouth every twelve hourstiZANidine HCl 4 MG 1 tablet as needed Orally Twice a day Jun, Activetake 2 tablets by mouth at bedtimetiZANidine HCl - 4 MG Oral Tablet TAKE 2 TABLETS AT BEDTIME. Quantity: 0 Refills: 0 Ordered: 11-Jan-2023 DO ActivetraMADol hydrochloride 50 mg oral tablet (20 sources)Opioid AgonistStart: 08-02-2024 End: 63-03-0738tnhx 1 tablet by mouth every six hours as needed for painUltram 50 mg Tab 50 mg = 1 tab(s), Oral, q6hr, PRN Pain, X 5 day(s), # 12 tab(s), Refills(s) 0, Pharmacy: [facility]/pharmacy #[id number], 182, cm, 08/02/24 9:08:00 EST, Height/Length Dosing, 88.5, kg, 08/02/24 9:08:00 EST, Weight Dosing Start Date: 08/02/24 Stop Date: 08/07/24 Status: OrderedStart: 07-26-2023 End: 44-39-3035Zbjaw: 07-26-2023 End: 11-07-6444koss 1 tablet by mouth four times daily as neededTramadol 50 mg tablet Discontinued 50 MG PO July 26, 2023 1:00am March 03, 2024 2:29pm FreeTextSi tablet as needed Orally QID; Note: Source Status: Taking; Refills: 0; Provider: Rory Eason PStart: 84-19-9991eccv 1 tablet by mouth every six hourstraMADol HCl 50 MG 1 tablet as needed Orally QID for 7 days Feb, ActiveStart: 03-13-2019 End: 68-58-5636Uvnji: 03-13-2019 End: 01-16-9615omlv 1 tablet by mouth four times dailyTramadol 50 mg Tablet Discontinued 50 MG PO Four times daily March 13, 2019 12:00am July 24, 2019 2:52pmubrogepant 100 mg oral tablet (20 sources)take 1 tablet by mouth once daily as neededubrogepant 100 mg tablet Take 100 mg by mouth daily as needed. Active (20 sources)Start: 48-52-9007Ytrze: 42-58-4903Shadf: 08-30-2024 End: 97-13-0695Haptt: 08-30-2024 End: 16-69-6494Rxdnt: 08-30-2024 End: 78-28-0939Oikxx: 08-12-2024 End: 91-91-8797Cvteb: 08-12-2024 End: 41-35-3226Tswgz: 06-27-2024 End: 12-46-6476Kjdgq: 06-25-2024 End: 34-95-1052Igwal: 84-05-1656Nyllj: 04-08-2024 End: 55-64-7021Mspqs: 04-05-2024 End: 87-18-3330Radwg: 04-05-2024 End: 86-58-9153Iemmr: 04-04-2024 End: 44-02-7067Xkess: 40-03-3359Vuzhw: 03-13-2024 End: 37-79-1776Pubfd: 03-13-2024 End: 18-99-6792Qkaji: 27-88-2097Lveeq: 03-08-2024 End: 43-33-7537Vcrxt: 74-78-9396Xzhoa: 03-06-2024 End: 45-21-8173Nvaom: 13-99-6238Ptebz: 62-61-4330Tgepo: 03-03-2024 End: 85-42-0984Tivbl: 03-03-2024 End: 17-02-6031Uydpo: 03-03-2024 End: 94-90-1178Dqgay: 04-99-7084Tjfuz: 12-25-2023 End: 59-73-6986Fopzg: 12-25-2023 End: 82-84-0478Xopnl: 12-05-2023 End: 05-01-7818Esfku: 09-28-2023 End: 09-50-4473Rvdaj: 09-27-2023 End: 41-64-8190Kdqeq: 07-27-2023 End: 26-69-9005Zxwsw: 07-26-2023 End: 63-32-5732Mivpf: 07-12-2023 End: 05-82-2827Sflgm: 07-14-2020 End: 15-13-9059Vwnqz: 08-08-2019 End: 07-26-2023 Completed/Discontinued Medications MedicationDrug Class(es)DatesSig (Normalized)Sig (Original)acetaminophen 325 mg oral tablet (20 sources)Start: 03-13-2024 End: 63-82-8090miqr 2 tablets by mouth every eight hours [...] 5 mg oral tablet (6 sources)Opioid AgonistStart: 94-15-6067sxjn 1 tablet by mouth every four hours as neededoxyCODONE-acetaminophen (PERCOCET) 5-325 mg per tablet Take 1 tablet by mouth every 4 (four) hours as needed. 09/22/2023 Suspendedalogliptin 25 mg oral tablet (20 sources)Start: 07-14-2020 End: 55-26-4988Dtgfh: 03-13-2019 End: 30-68-1326VUTCWYrtag 0.5 mg oral tablet (20 sources)BenzodiazepineStart: 08-08-2019 End: 76-43-9584Obxms: 03-13-2019 End: 27-44-6937Niwqg: 03-13-2019 End: 56-87-8154xbqu 2 tablets by mouth once dailyAlprazolam (Xanax) 0.5 mg Tablet Discontinued 1 MG PO Daily March 13, 2019 12:00am July 24, 2019 2:52pm End: 28-25-3496xzpo 1 tablet by mouth three times daily as neededALPRAZolam (Xanax) 0.5 mg tablet Take 1 tablet (0.5 mg) by mouth 3 times a day as needed. 10/24/2023 Discontinued (Therapy completed)10 ml aminophylline 25 mg/ml injection (1 source)Start: 02-05-2025 End: 19-94-313191 mg, intravenous, Administer over 1 Minutes, Once, On Mon02/05/25 at 1000, For 1 doseStart: 02-05-2025 End: 16-63-263272 mg, intravenous, Administer over 1 Minutes, Once, On Mon02/05/25 at 1000, For 1 doseamLODIPine 10 mg oral tablet (20 sources)Dihydropyridine Calcium Channel BlockerStart: 04-01-2018 End: 61-54-9734Hajvp: 04-01-2018 End: 57-87-9489mzcg 5 mg by mouth once dailyAmlodipine Discontinued 5 MG PO Daily April 01, 2018 12:00am July 24, 2019 2:52pmStart: 83-10-9501elwm 1 tablet by mouth once dailyNorvasc 5 mg Tab 5 mg = 1 tab(s), Oral, Daily, Refills(s) 0 Start Date: 10/31/13 Status: Orderedbaclofen 10 mg oral tablet (17 sources)gamma-Aminobutyric Acid-ergic AgonistStart: 03-03-2024 End: 38-75-8946Dtasq-Glucose Meter,Continuous (Freestyle Jigar 3 [place]) misc (10 sources)Start: 12-25-2023 End: 96-32-9997Cgtpa-Glucose Meter,Continuous (Freestyle Jigar 3 [place]) misc Discontinued 0 .Route December 24, 2023 11:00pm December 28, 2023 10:03am As directedStart: 12-25-2023 End: 11-50-3908Ullji-Glucose Meter,Continuous (Freestyle Jigar 3 [place]) misc Discontinued 0 .Route December 25, 2023 12:00am December 28, 2023 11:03am As directedBlood-Glucose Sensor (Freestyle Jigar 3 Sensor) device (12 sources)Start: 12-25-2023 End: 58-23-2371Jestw-Glucose Sensor (Freestyle Jigar 3 Sensor) device Discontinued 0 .Route December 24, 2023 11:00pm December 28, 2023 10:03am As directedStart: 12-25-2023 End: 90-40-1152Xdnar-Glucose Sensor (Freestyle Jigar 3 Sensor) device Discontinued 0 .Route December 25, 2023 12:00am December 28, 2023 11:03am As directedBlood-Glucose,Depot Manager,Cont (Freestyle Jigar 3 [place]) misc (2 sources)Start: 12-25-2023 End: 75-44-5960Ijfpe-Glucose,Depot Manager,Cont (Freestyle Jigar 3 [place]) misc Discontinued 0 .Route December 242:00am December 28, 2023 11:03am As directedbusPIRone hydrochloride 10 mg oral tablet (20 sources)Start: 03-13-2019 End: 75-13-8853fukxuxe carbonate 1250 mg / cholecalciferol 0.01 mg oral tablet (11 sources)Vitamin DStart: 08-30-2024 End: 50-83-2380Rmfnt: 08-30-2024 End: 96-09-7925zacq 1 tablet by mouth once dailyCalcium Carbonate-Vitamin D3 (Oyster Shell Calcium-Vit D3) 500 mg-10 mcg (400 unit) tablet Discontinued 1 TAB PO Daily September 05, 2024 3:30pm October 10, 2024 7:18pmCalcium Carbonate-Vitamin D3 (Oyster Shell Calcium-Vit D3) 500 mg-5 mcg (200 unit) Tablet (5 sources)Start: 08-12-2024 End: 97-01-0617hdai 2 tablets by mouth once at mealtimeCalcium Carbonate-Vitamin D3 (Oyster Shell Calcium-Vit D3) 500 mg-5 mcg (200 unit) Tablet Discontinued 2 TAB PO 3x/Day with meals August 12, 2024 12:00am August 30, 2024 9:16am Start: 58-05-0935rscu 2 tablets by mouth once at mealtimeCalcium Carbonate- Vitamin D3 (Oyster Shell Calcium-Vit D3) 500 mg-5 mcg (200 unit) Tablet Active 2 TAB PO 3x/Day with meals August 12, 2024 12:00amcephalexin 500 mg oral capsule (11 sources)Cephalosporin AntibacterialStart: 04-19-2024 End: 49-86-2184mpdirfqKFS 0.5 mg oral tablet (20 sources)BenzodiazepineStart: 04-26-2024 End: 03-34-6409jnkeoBXM 5 mg oral tablet (20 sources)BenzodiazepineStart: 07-26-2023 End: 02-78-2915Dlbrq: 05-21-2020 End: 42-67-9617ryzbkyoutxq hydrochloride 20 mg oral tablet (20 sources)AnticholinergicStart: 05-22-2020 End: 43-02-9766zxelgzkhsey hyclate 100 mg oral capsule (20 sources)Tetracycline-class DrugStart: 08-02-2024 End: 12-70-0383Eqrrv: 69-24-5762yhcj 1 capsule by mouth once dailydoxycycline hyclate [...] auto-injector (20 sources)GLP-1 Receptor AgonistStart: 04-04-2024 End: 76-72-4946Kgygkjdskte (Trulicity) 0.75 mg/0.5 mL pen injector Discontinued MG SUBCUT April 04, 2024 12:00am April 05, 2024 2:02pmStart: 07-12-2023 inject 0.5 mL by subcutaneous injection every weekdulaglutide 0.75 mg/0.5 mL pen injector Inject 0.5 mL (0.75 mg total) under the skin once a week. 07/12/2023 ActiveStart: 07-27-2021 End: 68-29-1698mssccz 0.75 mg by subcutaneous injection every weekdulaglutide (TRULICITY) 1.5 mg/0.5 mL pen injector Inject 0.75 mg under the skin once a week. 01/30/2023 ActiveStart: 07-27-2021 End: 05-86-4086BQWknkikzl 30 mg delayed release oral capsule (20 sources)Serotonin and Norepinephrine Reuptake InhibitorStart: 03-13-2024 End: 70-14-2184rqxe 1 capsule by mouth in the morningDULoxetine (CYMBALTA) 60 mg capsule Take 1 capsule (60 mg total) by mouth in the morning. Activeferrous sulfate 325 mg oral tablet (20 sources)Start: 03-06-2024 End: 74-50-9747flio 1 tablet by mouth every other dayFerrous Sulfate 325 mg (65 mg iron) tablet Discontinued 325 MG PO Q2D March 06, 2024 12:00am April 23, 2024 1:48pmStart: 07-26-2023 End: 24-77-5849Ncgrs: 07-26-2023 End: 63-96-5652Idrkftt Sulfate (Slow Fe) 137 mg (45 mg iron) tablet extended release Discontinued MG PO July 26, 2023 1:00am March 03, 2024 2:28pmStart: 26-35-6225dkep 1 tablet by mouth three times weeklySlow Fe 142 (45 Fe) MG 1 tablet Orally Three times a Week for 30 day(s) Apr, Activetake 1 tablet by mouth once dailyferrous sulfate, 325 mg ferrous sulfate, tablet Take 1 tablet by mouth once daily. Active1.5 ml fremanezumab-vfrm 150 mg/ml prefilled syringe (20 sources)Start: 05-07-2024 End: 12-36-1276Lqslr: 30-61-6163cskdup 1.5 mL by subcutaneous injection every 30 daysAJOVY AUTOINJECTOR 225 mg/1.5 mL Inject 1.5 mL (225 mg total) under the skin every 30 (thirty) days. 07/18/2023 ActiveStart: 07-12-2023 End: 28-44-0394Xbrfk: 07-12-2023 End: 96-82-0484Bycxflhrnlqz-Vfrm (Ajovy Autoinjector) 225 mg/1.5 mL auto- injector Discontinued 225 MG SUBCUT Q30D July 12, 2023 1:00am March 03, 2024 2:28pmhydroCHLOROthiazide 25 mg / losartan potassium 100 mg oral tablet (20 sources)Thiazide Diuretic, Angiotensin 2 Receptor BlockerStart: 04-01-2018 End: 78-09-8290Fawse: 04-01-2018 End: 48-02-8586wdrc 1 tablet by mouth once dailyLosartan-Hydrochlorothiazide 100-25 mg Tablet Discontinued 1 TAB PO Daily April 01, 2018 12:00am March 13, 2019 8:00amhydroCHLOROthiazide 12.5 mg / olmesartan medoxomil 40 mg oral tablet (20 sources)Thiazide Diuretic, Angiotensin 2 Receptor BlockerStart: 07-24-2019 End: 06-55-2957Jknou: 07-24-2019 End: 48-89-3799tqdd 1 tablet by mouth once dailyOlmesartan-Hydrochlorothiazide (Benicar Hct) 40-12.5 mg Tablet Discontinued 1 TAB PO Daily 2019 1:00am July 14, 2020 12:39pmibuprofen 200 mg oral tablet (20 sources)Nonsteroidal Anti-inflammatory DrugStart: 07-26-2023 End: 45-88-3662cnio 1 tablet by mouth three times daily at mealtime as needed Ibuprofen 200 MG 1 tablet with food or milk as needed Orally Three times a day ActiveInsulin Aspart U-100 (Novolog Flexpen U-100 Insulin) 100 unit/mL (3 mL) Insulin Pen (10 sources)Start: 03-13-2024 End: 93-56-3701Fntjhww Aspart U-100 (Novolog Flexpen U-100 Insulin) 100 unit/mL (3 mL) Insulin Pen Discontinued 0 UNIT SUBCUT 3X/Day with meals and bedtime 0 March 13, 2024 12:00am April 05, 2024 3:27pm Please contact the information source for Protocol details.Start: 03-13-2024 End: 11-89-1945Npszskn Aspart U-100 (Novolog Flexpen U-100 Insulin) 100 unit/mL (3 mL) Insulin Pen Discontinued 0 UNIT SUBCUT 3X/Day with meals and bedtime 0 March 12, 2024 11:00pm April 05, 2024 2:27pm Please contact the information source for Protocol details.Start: 68-88-1078Jmmjqpl Aspart U-100 (Novolog Flexpen U-100 Insulin) 100 unit/mL (3 mL) Insulin Pen Active 0 UNIT TELLEZ BCUT 3X/Day with meals and bedtime 0 March 13, 2024 12:00amInsulin Aspart U- 100 (Novolog Flexpen U-100 Insulin) 100 unit/mL (3 mL) insulin pen (18 sources)Start: 04-08-2024 End: 05-86-2915Gvfwwno Aspart U-100 (Novolog Flexpen U-100 Insulin) 100 unit/mL (3 mL) insulin pen Discontinued 0 UNIT SUBCUT 3X/Day with meals and bedtime April 08, 2024 4:23pm May 07, 2024 5:32pm Please contact the information source for Protocol details.Start: 04-08-2024 End: 29-43-9538Jxiaudg Aspart U-100 (Novolog Flexpen U-100 Insulin) 100 unit/mL (3 mL) insulin pen Discontinued 0 UNIT SUBCUT 3X/Day with meals and bedtime April 08, 2024 3:23pm May 07, 2024 4:32pm Please contact the information source for Protocol details.Start: 42-33-2658Nohombm Aspart U-100 (Novolog Flexpen U-100 Insulin) 100 unit/mL (3 mL) insulin pen Active 0 UNIT TELLEZ BCUT 3X/Day with meals and bedtime April 08, 2024 3:23pm Please contact the information source for Protocol details.Start: 04-05-2024 End: 38-80-0460Yyqivxe Aspart U-100 (Novolog Flexpen U-100 Insulin) 100 unit/mL (3 mL) insulin pen Discontinued 0 UNIT SUBCUT 3X/Day with meals and bedtime April 05, 2024 3:15pm April 08, 2024 4:25pm Please contact the information source for Protocol details.Start: 04-05-2024 End: 99-40-7232Qzbqbav Aspart U-100 (Novolog Flexpen U-100 Insulin) 100 unit/mL (3 mL) insulin pen Discontinued 0 UNIT SUBCUT 3X/Day with meals and bedtime April 05, 2024 2:15pm April 08, 2024 3:25pm Please contact the information source for Protocol details.3 ml insulin glargine 100 unt/ml pen injector (20 sources)Insulin AnalogStart: 03-03-2024 End: 74-38-2141Ojync: 42-49-8368wzvlbw 35 [IU] by subcutaneous injection at bedtimeinsulin glargine 100 units/mL SubQ Malaika 10 mL 35 unit(s), SubCutaneous, Bedtime, Refills(s) 0 Start Date: 02/21/24 Status: Ordered Repeat number: 1 Insulin Lispro (Humalog Kwikpen Insulin) 100 unit/mL insulin pen (12 sources)Start: 03-03-2024 End: 43-58-7854Pyitxal Lispro (Humalog Kwikpen Insulin) 100 unit/mL insulin pen Discontinued 1 sliding scale dose SUBCUT As Directed March 02, 2024 11:00pm March 08, 2024 5:26pmStart: 03-03-2024 End: 30-95-0165Klthjim Lispro (Humalog Kwikpen Insulin) 100 unit/mL insulin pen Discontinued 1 sliding scale dose SUBCUT As Directed March 03, 2024 12:00am March 08, 2024 6:26pmStart: 23-98-6257Lwxlgqh Lispro (Humalog Kwikpen Insulin) 100 unit/mL insulin pen Active 1 sliding scale dose SUBCUTAs Directed March 03, 2024 12:79km371 actuat ipratropium bromide 0.017 mg/actuat metered dose inhaler (17 sources)AnticholinergicStart: 03-03-2024 End: 00-39-8103Annbc: 03-03-2024 End: 00-90-0193Xabjzqltxbr Anahola (Atrovent Hfa) 17 mcg/actuation HFA aerosol inhaler Discontinued 2 INH INHALATION Three times daily March 03, 2024 12:00am March 13, 2024 1:06pmKetorolac (20 sources)Nonsteroidal Anti-inflammatory Drug, Cyclooxygenase InhibitorStart: 84-69-6358Gddetjz per 15 mg Jan, 2 ccStart: 72-78-3732Mbzurum per 15 mg Jan, 2 ccStart: 60-42-8379Ezvwvxr per 15 mg Jan, 2 cc lansoprazole 30 mg delayed release oral capsule (20 sources)Proton Pump InhibitorStart: 07-24-2019 End: 89-30-7435Egntxyrathf Supplements (Nutra Pro High Protein) powder (12 sources)Start: 03-03-2024 End: 68-85-7727Rsicewwlamr Supplements (Nutra Pro High Protein) powder Discontinued 1 EACH PO Twice daily March 02, 2024 11:00pm March 08, 2024 5:26pmStart: 03-03-2024 End: 23-26-9806Bwzoytqcahm Supplements (Nutra Pro High Protein) powder Discontinued 1 EACH PO Twice daily March 03, 2024 12:00am March 08, 2024 6:26pmStart: 27-67-0881Ipmutayilkx Supplements (Nutra Pro High Protein) powder Active 1 EACH PO Twice daily March 03, 2024 12:00amolmesartan medoxomil 5 mg oral tablet (20 sources)Angiotensin 2 Receptor BlockerStart: 03-13-2019 End: 19-06-3513uhlMZDGUB hydrochloride 10 mg oral tablet (20 sources)Opioid AgonistStart: 03-03-2024 End: 87-79-6924Yqylp: 32-28-9655cxni 2 tablets by mouth every six hours as needed for painoxyCODONE 5 mg Tab 10 mg = 2 tab(s), Oral, q6hr, PRN Pain, # 18 tab(s), Refills(s) 0 Start Date: 02/21/24 Status: OrderedStart: 11-14-2023 End: 15-71-9486keqh 1 tablet by mouth every six hours as needed for pain oxyCODONE (ROXICODONE) 5 mg immediate release tablet Indications: Post-op pain Take 1 tablet (5 mg total) by mouth every 6 (six) hours as needed for pain for up to 7 days. Max Daily Amount: 20 mg 10 tablet 11/14/2023 11/21/2023 Active polyethylene glycol 3350 29880 mg powder for oral solution (20 sources)Osmotic LaxativeStart: 02-21-2024 End: hr ranolazine 1000 mg extended release oral tablet (20 sources)Anti-anginalStart: 07-10-2014 End: 10-90-3495ilsvhqgguaf (Lexiscan) injection 0.4 mg (1 source)Start: 02-05-2025 End: 50.4 mg, intravenous, Once, On Mon02/05/25 at 0930, For 1 dose rimegepant 75 mg disintegrating oral tablet (20 sources)Start: 05-07-2024 End: 76-69-9496Xlfcq: 04-04-2024 End: 93-60-3336Orhjq: 04-04-2024 End: 68-62-3984anev 1 tablet by mouth onceRimegepant (Nurtec Odt) 75 mg tablet,disintegrating Discontinued 75 MG PO Once April 04, 2024 12:00am April 23, 2024 1:49pmStart: 01-04-6950kupc 1 tablet by mouth every twenty- four hours as needed for headacheNurtec ODT 75 mg oral tablet, disintegrating 75 mg = 1 tab(s), Oral, q24hr, PRN Migraine headache, Refills(s) 0 Start Date: 02/12/24 Status: OrderedStart: 07-12-2023 End: 97-85-3749Czibq: 07-12-2023 End: 60-16-7713bthj 1 tablet by mouth once daily as needed for headache Rimegepant (Nurtec Odt) 75 mg tablet,disintegrating Discontinued 75 MG PO Daily as needed for migraine headache July 12, 2023 1:00am March 13, 2024 1:06pmrOPINIRole 0.5 mg oral tablet (20 sources)Nonergot Dopamine AgonistStart: 04-04-2024 End: 45-34-5433Qmfot: 04-04-2024 End: 50-19-4112dijl 1 tablet by mouth three times dailyRopinirole 0.5 mg tablet Discontinued 0.5 MG PO Three times daily 270 90 July 04, 2024 4:43pm August 11, 2024 4:40amStart: 04-01-2018 End: 89-99-2805Fwbur: 04-01-2018 End: 72-11-4153Jamrk: 01-24-2011 End: 66-78-0606tsfh 1 tablet by mouth three times dailyropinirole 1 mg Tab 1 mg = 1 tab(s), Oral, TID, Refills(s) 0 Start Date: 02/12/24 Status: Ordered Repeat number: 1Sennosides (Senna Laxative) 8.6 mg tablet (12 sources)Start: 03-03-2024 End: 30-62-2055oaid 1 tablet by mouth twice dailySennosides (Senna Laxative) 8.6 mg tablet Discontinued 8.6 MG PO Twice daily March 02, 2024 11:00pm March 08, 2024 5:26pmStart: 03-03-2024 End: 46-48-0099qhzk 1 tablet by mouth twice dailySennosides (Senna Laxative) 8.6 mg tablet Discontinued 8.6 MG PO Twice daily March 03, 2024 12:00am March 08, 2024 6:26pmStart: 05-70-8516qckm 1 tablet by mouth twice daily Sennosides (Senna Laxative) 8.6 mg tablet Active 8.6 MG PO Twice daily March 03, 2024 12:00amsulfamethoxazole 800 mg / trimethoprim 160 mg oral tablet (11 sources)Dihydrofolate Reductase Inhibitor Antibacterial, Sulfonamide AntimicrobialStart: 04-19-2024 End: 44-32-7270Vhrct: 04-19-2024 End: 54-64-9068wfld 1 tablet by mouth twice dailySulfamethoxazole-Trimethoprim 800-160 mg tablet Discontinued 1 TAB PO Twice daily April 19, 2024 1:00am April 23, 2024 1:50pmTc-99m tetrofosmin (Myoview) injection 10 millicurie (1 source)Start: 02-05-2025 End: millicurie, intravenous, Once in imaging, Starting on Mon02/05/25 at 0817, For 1 dose, [id number] to 90 minutes prior to imaging unless otherwise indicated.Tc-99m tetrofosmin (Myoview) injection 30 millicurie (1 source)Start: 02-05-2025 End: millicurie, intravenous, Once in imaging, Starting on Mon02/05/25 at 0927, For 1 dose, [id number] to 90 minutes prior to imaging unless otherwise indicated.Toradol 30 mg/ml (20 sources)Start: 83-18-0950Ttesrty 30 mg/ml Jul, 60 mgStart: 87-77-2349Edzrzsf 30 mg/ml Jul, 60 mgStart: 05-09-9896Mfrhcyp 30 mg/ml Jul, 60 mgStart: 70-64-9626Hzobpzs 30 mg/ml Jun, 60 mgtraZODone hydrochloride 50 mg oral tablet (20 sources)Serotonin Reuptake InhibitorStart: 07-24-2019 End: 13-17-8079Thlox: 07-24-2019 End: 91-44-8454wrju 1 tablet by mouth at bedtimeTrazodone 50 mg tablet Discontinued 50 MG PO Bedtime July 24, 2019 1:00am July 14, 2020 1 2:40pmTriamcinolone (20 sources)CorticosteroidStart: 95-16-7464QJJTLDL - 10 mg Sep, 1 cc varenicline 1 mg oral tablet (18 sources)Partial Cholinergic Nicotinic AgonistStart: 07-14-2020 End: 23-82-3367adsm 1 tablet by mouth twice daily, then take 1 tablet by mouth onceVarenicline Tartrate (Chantix Continuing Month Box) 1 mg tablet Discontinued 1 MG PO Twice daily July 14, 2020 1:00am July 12, 2023 6:30pmvitamin b12 1 mg oral capsule (1 source)Vitamin G68Runbo: 11-05-2024 End: 11-05-2024 Problems Active Problems Problem ClassificationProblemDateDocumented DateEpisodic/ChronicAbdominal pain (20 sources)Abdominal pain; Translations: [Unspecified abdominal pain]Episodic Acute and unspecified renal failure (20 sources)Renal failure syndrome; Translations: [Unspecified kidney failure] ChronicAcute cerebrovascular disease (1 source)Acute cerebrovascular diseaseOnset: 51-02-9718Scuty myocardial infarction (20 sources)Myocardial infarction; Translations: [Acute myocardial infarction, unspecified]Onset: 065948-38-1098WcygutdIdswhmjimfbdwc/social admission (13 sources)Drug therapy finding; Translations: [Other specified counseling] 21-52-0332NzoyhsqsLhuwkez disorders (20 sources)Anxiety; Translations: [Anxiety disorder, unspecified]Onset: 07-27-2021 Resolved: 74-30-7158BjodhszYokhpz (20 sources)Asthmatic bronchitis; Translations: [Unspecified asthma, uncomplicated]Onset: 779989-46-8331EqqzzcgKdnvuss dysrhythmias (20 sources)Atrial fibrillation; Translations: [Unspecified atrial fibrillation] Onset: 203428-94-9788IkbqfqkRqfrnxx kidney disease (20 sources)Chronic kidney disease stage 3; Translations: [Chronic kidney disease, stage 3 (moderate)]Onset: 10-19-2021 Resolved: 12-46-7186ZfhorxiQoytksk kidney disease (7 sources)Chronic kidney disease; Translations: [Stage 3 chronic kidney disease, unspecified whether stage 3aor 3b CKD]Onset: 10-18-2021 Resolved: 78-10-0773Mnojhof obstructive pulmonary disease and bronchiectasis (20 sources)Pulmonary emphysema; Translations: [Chronic obstructive lung disease]Onset: 304057-57-5483JokjgakZrrpzajiua heart failure; nonhypertensive (20 sources)Congestive heart failure; Translations: [Heart failure]Onset: 271604-24-5459BlydlrsAxdwjwoz atherosclerosis and other heart disease (20 sources)Disorder of coronary artery; Translations: [Coronary atherosclerosis of unspecified type of vessel,[place] or graft]Onset: 11-05-2013 Resolved: 95-56-2439RrpczhuKfqfcuphel and other anemia (1 source)Anemia in chronic kidney disease; Translations: [Anemia in chronic kidney disease]Onset: 23-87-0784ZjyuruvCyppdafdlu and other anemia (1 source)Iron deficiency akabge00-72-9081QnbmjikrKdjlspbl, dementia, and amnestic and other cognitive disorders (1 source)DementiaOnset: 767186-07-8907WajfkztOvapipuq mellitus with complications (20 sources)Peripheral vascular disorder due to diabetes mellitus; Translations: [Type 2 diabetes mellitus withother circulatory complications]Onset: 06-23-2021 Resolved: 62-22-7393TmetppiAtirndf on above:Outside Source Comment: Comment on above: w/ surrounding cellulitisDiabetes mellitus without complication (20 sources)Diabetes mellitus; Translations: [Diabetes mellitus without mention of complication, type II or unspecified type, not stated as uncontrolled]Onset: 264490-78-4168EqmurhzXftqioyr of white blood cells (1 source)Leukocytosis; Translations: [Elevated white blood cell count, unspecified]Onset: 67-78-4759RjyzjpcBqezrysju of lipid metabolism (20 sources)Hyperlipidemia; Translations: [Other and unspecified hyperlipidemia] Onset: 07-17-2015 Resolved: 60-25-8895AbmzpzmJrbkmbx on above:Outside Source Comment: Overview: Cont home atorvaEsophageal disorders (20 sources)Gastroesophageal reflux disease; Translations: [Gastro-esophageal reflux disease without esophagitis]Onset: 07-27-2021 Resolved: 50-41-5207RymgakiMylgvfwsr hypertension (20 sources)Hypertensive disorder; Translations: [Essential (primary) hypertension]Onset: 11-05-2013 Resolved: 252300-24-3594IbnimeoCeoklqnl (20 sources)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; Translations: [Atherosclerosis of [place] arteries of extremities with gangrene, right leg] Onset: 10-18-2023 Resolved: 55-27-2512MjmnwocQudyzgua (1 source)Hchimzwd60-64-2644AwseedeBvzc and other crystal arthropathies (20 sources)Gout; Translations: [Gout, unspecified]Onset: 02-15-2022 Resolved: 46-46-7485GdautptPlsczrcs; including migraine (11 sources)Migraine; Translations: [Migraine, unspecified, not intractable, without status migrainosus]Onset: 726828-09-0509VxoedjbEhqsejbenxn of prostate (20 sources)Benign prostatic hypertrophy with outflow obstruction; Translations: [Benign prostatic hyperplasia with lower urinary tract symptoms]Onset: 84-32-7192PlqqmrxLbnawswewfui with complications and secondary hypertension (20 sources)Hypertensive renal disease; Translations: [Hypertensive chronic kidney disease with stage 1 throughstage 4 chronic kidney disease, or unspecified chronic kidney disease]Onset: 09-21-2021 Resolved: 63-37-3446YnmymcrKmllknecw arthritis and osteomyelitis (except that caused by tuberculosis or sexually transmitted disease) (20 sources)Acute osteomyelitis of right foot; Translations: [Other acute osteomyelitis, right ankle and foot]Onset: hronic Inflammatory conditions of male genital organs (20 sources)Orchitis; Translations: [Orchitis]Onset: 75-06-3267Slugpedm Nutritional deficiencies (20 sources)Vitamin D deficiency; Translations: [Vitamin D deficiency, unspecified]Onset: 02-15-2022 Resolved: 02-58-8231RjitpfbYkaiahbglhx deficiencies (20 sources)Cobalamin deficiency; Translations: [Deficiency of other specified B group vitamins]Onset: 569069-31-4809ZcnhpzcuZfwmdguvnwyece (20 sources)Arthritis; Translations: [Unspecified osteoarthritis, unspecified site]Onset: 095935-69-2707LktsczmLvhct acquired deformities (20 sources)Contracture of joint of hand; Translations: [Contracture, unspecified hand]ChronicOther aftercare (20 sources)Long-term current use of insulin; Translations: [snf (current) use of insulin]46-31-7842EnnyhvucHwegp and ill-defined heart disease (19 sources)Heart bpmpxik55-73-0899UynkhszUvapx bone disease and musculoskeletal deformities (17 sources)History of amputation of right leg through tibia and fibula; Translations: [Acquired absence of right leg below knee]Onset: 02-27-2025 44-91-8320AnfbzefJnmcrro on above:02/2024 [facility] by Dr. Simon Hernández VascularOther bone disease and musculoskeletal deformities (9 sources)Acquired absence of right leg below knee; Translations: [Below knee amputation status]Onset: 917104-65-2953HhtekygWmveq bone disease and musculoskeletal deformities (1 source)Amputated right lower limb below knee; Translations: [Acquired absence of right leg below knee]Onset: 34-87-2193TlqhvuiNybih circulatory disease (1 source)Other specified symptoms and signs involving the circulatory and respiratory systems; Translations:[Other specified symptoms and signs involving the circulatory and respiratory systems]Onset: 27-61-4527YzbuqmhnEyswo circulatory disease (3 sources)Critical lower limb ischemiaOnset: 202905-22-7877Qsougkre Comment on above:Outside Source Comment: Last Assessment & Plan: Right below-knee amputation. Will do it here at [place].Other connective tissue disease (20 sources)Pain in limb; Translations: [Pain in leg, unspecified]EpisodicOther connective tissue disease (5 sources)Pain in right legOnset: 10-08-2021 Resolved: 47-03-8449KvjerqrzTjhic connective tissue disease (19 sources)Bfcvfefvkbxll33-71-6552QipzdifpWndjq connective tissue disease (1 source)Pain in left armEpisodicOther connective tissue disease (1 source)Pain in left fqe35-75-2471WhhinfgdTquzyzr on above:Outside Source Comment: Comment on above: 2/2 to fall. No fracture.Other diseases of bladder and urethra (7 sources)Mass of urinary bladder; Translations: [Other specified disorders of bladder]10-64-7409GnufivcWbyqw diseases of bladder and urethra (1 source)Other specified disorders of bladderChronicOther diseases of bladder and urethra (1 source)Neurogenic -21-2348AprhdczMsghl diseases of kidney and ureters (2 sources)Urinary tract obstruction; Translations: [Other obstructive and reflux uropathy]Onset: 14-62-1059IuqstzwoEspsa disorders of stomach and duodenum (11 sources)Disorder of stomach; Translations: [Other diseases of stomach and duodenum]85-76-6451CvyppjkwGiotv disorders of stomach and duodenum (2 sources)Other diseases of stomach and duodenum; Translations: [Other specified disorders of stomach and duodenum]71-86-1353SlpfdrphIvocu endocrine disorders (20 sources)Testicular hypofunction; Translations: [Testicular hypofunction] ChronicOther hereditary and degenerative nervous system conditions (20 sources)Restless legs; Translations: [Restless legs syndrome]Onset: 364701-39-7119OdspohsOgprx hereditary and degenerative nervous system conditions (17 sources)Restless legs syndrome; Translations: [Restless legs syndrome (RLS)] Onset: 07-27-2021 Resolved: 52-95-3809BtpgfruFhgqy injuries and conditions due to external causes (15 sources)Hypothermia; Translations: [Hypothermia, initial encounter] 10-45-4062IhnursytSzjld injuries and conditions due to external causes (4 sources)Hypothermia, initial encounter; Translations: [Hypothermia]03-08-2024 EpisodicOther lower respiratory disease (20 sources)Solitary nodule of lung; Translations: [Solitary pulmonary nodule] EpisodicOther male genital disorders (20 sources)Impotence of organic origin; Translations: [Male erectile dysfunction, unspecified]ChronicOther male genital disorders (16 sources)Male erectile dysfunction, unspecified; Translations: [Erectile dysfunction]Onset: 07-27-2021 Resolved: 49-11-8002EsohhuiMsglb nervous system disorders (20 sources)Neuropathy; Translations: [Polyneuropathy, [...] of bilateral lower limbs]ChronicOther nervous system disorders (11 sources)Carpal tunnel syndrome of right wrist; Translations: [Carpal tunnel syndrome, right upper limb]Onset: 306726-61-7278RvrqvwxBquqx nervous system disorders (11 sources)Polyneuropathy; Translations: [Polyneuropathy, unspecified]Onset: 395526-63-4226VnomboxJrvvb nervous system disorders (20 sources)Carpal tunnel syndrome; Translations: [Carpal tunnel syndrome, unspecified upper limb]Onset: 482441-03-0506GllwsvwBjohu nervous system disorders (7 sources)Polyneuropathy, unspecified; Translations: [Mononeuritis of unspecified site]Onset: 924602-30-8640QqvgigoZskxy nervous system disorders (1 source)Other chronic pain; Translations: [Other chronic pain]Onset: 77-21-2015UtywyhcOqjnw nervous system disorders (1 source)Metabolic kxyajyycgwlwrj74-64-5672PlcxpgsApblc nervous system disorders (20 sources)Skin sensation disturbance; Translations: [Paresthesia of skin] EpisodicOther nervous system disorders (1 source)Other acute postprocedural pain; Translations: [Other acute postprocedural pain]Onset: 88-38-9112YxxgbpcfBgdim nervous system disorders (20 sources)Tremor; Translations: [Tremor, unspecified]84-73-2741DqdtkiqrIvjmv nervous system disorders (8 sources)Paresthesia; Translations: [Paresthesia of skin]62-90-8539Xnexptlf Other nervous system disorders (8 sources)Numbness; Translations: [Anesthesia of skin]67-43-2785SnncjjplNckmg nervous system disorders (9 sources)Anesthesia of skin; Translations: [Disturbance of skin sensation] Onset: 061094-65-8378JrmyopgsPyslp nervous system disorders (9 sources)Paresthesia of skin; Translations: [Disturbance of skin sensation] Onset: 666755-02-2558WgdaanyqReiuf non-traumatic joint disorders (1 source)Hip jicx73-46-1998GnhwgtkaLdlql nutritional; endocrine; and metabolic disorders (20 sources)Obesity; Translations: [Obesity, unspecified]ChronicOther nutritional; endocrine; and metabolic disorders (20 sources)Obese class II; Translations: [Body mass index (BMI) 35.0-35.9, adult]ChronicOther nutritional; endocrine; and metabolic disorders (20 sources)Obese class I; Translations: [Body mass index (BMI) 34.0-34.9, adult]10-13-0684IitchqzQnuea nutritional; endocrine; and metabolic disorders (4 sources)Body mass index (BMI) 34.0-34.9, adult; Translations: [Body Mass Index 34.0-34.9, adult]Onset: 10-19-2021 Resolved: 59-76-2817GezyebfAnlqr nutritional; endocrine; and metabolic disorders (14 sources)Hyperbilirubinemia; Translations: [Other disorders of bilirubin metabolism]56-71-9656DzrxzkgTagrw nutritional; endocrine; and metabolic disorders (4 sources)Other disorders of bilirubin metabolism; Translations: [Jaundice, unspecified, not of ]Onset: 989310-28-0751FnjehbqDhubs nutritional; endocrine; and metabolic disorders (9 sources)Body mass index 30+ - obesity; Translations: [Body mass index (BMI) 34.0-34.9, adult]82-82-2941RyemswwTmfqn nutritional; endocrine; and metabolic disorders (10 sources)Hypomagnesemia; Translations: [Hypomagnesemia]95-41-7546SurkthaLjqpc nutritional; endocrine; and metabolic disorders (16 sources)Hypomagnesemia; Translations: [Disorders of magnesium metabolism] Onset: 295880-54-0738EkumsnfLaids nutritional; endocrine; and metabolic disorders (9 sources)Hypocalcemia; Translations: [Hypocalcemia]92-20-1288SxgnmvxJdyjs nutritional; endocrine; and metabolic disorders (17 sources)Hypocalcemia; Translations: [Hypocalcemia]Onset: 08-11-2024 07-54-0473GhcqyykJhlhr nutritional; endocrine; and metabolic disorders (6 sources)Overweight in adulthood with body mass index of 25 or more but less than 30; Translations: [Overweight]EpisodicOther screening for suspected conditions (not mental disorders or infectious disease) (17 sources)Imaging result abnormal; Translations: [Abnormal findings on diagnostic imaging of other specified body structures]78-60-2404LcmlruvYbeun screening for suspected conditions (not mental disorders or infectious disease) (20 sources)Patient encounter status; Translations: [Encounter for screening for malignant neoplasm of colon]Onset: 07-27-2021 Resolved: 22-62-1341VkqyzwugRqoasawiyl and visceral atherosclerosis (20 sources)Intermittent claudication; Translations: [Peripheral vascular disease, unspecified]Onset: 488738-36-8723XfwgeafOcodmyjvh (except that caused by tuberculosis or sexually transmitted disease) (1 source)Gahpqrvcg36-83-4443SmatbprmHdurshns codes; unclassified (20 sources)Sleep apnea; Translations: [Sleep apnea, unspecified]Onset: 146329-71-4949FzakexxQwshahtf codes; unclassified (20 sources)Peripheral edema; Translations: [Edema, unspecified]EpisodicResidual codes; unclassified (20 sources)Amnesia; Translations: [Other amnesia]EpisodicResidual codes; unclassified (20 sources)Difficulty sleeping ; Translations: [Sleep disorder, unspecified] EpisodicResidual codes; unclassified (20 sources)Insomnia; Translations: [Insomnia, unspecified]EpisodicResidual codes; unclassified (20 sources)FH: premature coronary heart disease; Translations: [Family history of ischemic heart disease and other diseases of the circulatory system] 60-53-7533SrwqqusrXbyfocm on above:Reports mother had quadruple bypass at age of 45Residual codes; unclassified (20 sources)Tobacco user; Translations: [Tobacco use]Onset: EpisodicComment on above:Added secondary to social history documentation. Residual codes; unclassified (2 sources)Other specified postprocedural states; Translations: [Other specified postprocedural states]Onset: 84-99-8752WiyxkiepTlccipdn codes; unclassified (12 sources)Noncompliance with medication regimen; Translations: [Noncompliance with medication regimen]62-55-2714WbhodokkXlsrgwho codes; unclassified (1 source)H/O Spinal tbxktyp02-39-5536QmmlplfhPvzbxxuy codes; unclassified (1 source)History of abwiczpnfro59-46-2859XhekvcfpAgjmfpesmvy; intervertebral disc disorders; other back problems (20 sources)Degeneration of lumbar intervertebral disc; Translations: [Other intervertebral disc degeneration, lumbar region]ChronicSubstance-related disorders (20 sources)Smoker; Translations: [Nicotine dependence, unspecified, uncomplicated]Onset: 771324-61-9853JljxvcjOzdipdf on above:Added secondary to documentation in Social History.Unclassified (1 source)Critical limb ischemia of right lower extremity with gangrene ([facility]) [I70.261]Onset: 86-21-5626Gjaehjxcrdrw (1 source)New PatientOnset: 88-20-2955Nntcumohdrtj (4 sources)Patient encounter ugajpo94-90-3226Gwipjistfzkh (1 source)Chronic ulcer of right pnzd30-62-9842Cwzoujqyjpkn (1 source)Chronic ulcer of right hmsu39-54-9668Yeranhfehhos (1 source)Long-term current use of drug kdjmkaq39-94-3245Bmfgfndllybz (1 source)Peripheral arterial diseaseOnset: 626615-34-9375Hmmjqrmcnsvh (1 source)Pressure injury of right ankle stage IIIOnset: Unclassified (1 source)Puncture wound of right footOnset: Past or Other Problems Problem ClassificationProblemDateDocumented DateEpisodic/ChronicAcute and unspecified renal failure (18 sources)Acute renal failure syndrome; Translations: [Acute kidney failure, unspecified]Onset: 973577-14-8995MfdfgpexBaqupnh on above:Outside Source Comment: Comment on above: on BPS3nEhkcoze dysrhythmias (14 sources)Palpitations; Translations: [Palpitations]Onset: 03-27-2023 32-49-8271IquyelwnXrowhrq ulcer of skin (20 sources)Pressure ulcer of right ankle, stage 3; Translations: [Pressure ulcer, ankle]Onset: 11-08-2023 Resolved: 704753-44-8794MevohpcVlckjokxaziyg of surgical procedures or medical care (20 sources)Disorder of amputation stump; Translations: [Other complications of amputation stump]Onset: 11-08-2023 Resolved: 267461-87-1014GllvcvyxNlpkbggi atherosclerosis and other heart disease (2 sources)Coronary angioplasty status; Translations: [Coronary angioplasty status]Onset: 89-20-8668IeopqqvkRtuadlqvrb and other anemia (14 sources)Anemia, unspecified; Translations: [Anemia, unspecified]Onset: 12-93-4495LhzrzsfoEhyfyhbtov and other anemia (20 sources)Anemia; Translations: [Anemia, unspecified]Onset: 02-12-2024 89-44-6903IlhbydnvNxjgd and electrolyte disorders (20 sources)Hypokalemia; Translations: [Hypokalemia]Onset: 376303-89-2198 EpisodicGenitourinary symptoms and ill-defined conditions (20 sources)Retention of urine; Translations: [Retention of urine, unspecified] Onset: 61-97-7265KnljuyoqTkvnjkgg; including migraine (20 sources)Headache; Translations: [Headache]Onset: EpisodicHeadache; including migraine (5 sources)Headache; including migraineHeart valve disorders (20 sources)Heart murmur; Translations: [Cardiac murmur, unspecified]Onset: 815060-55-9996SnrsksxkHvexdsk and fatigue (1 source)AstheniaOnset: 067645-98-4053GtbfdawgNiju disorders (20 sources)Mood disordersOnset: Nausea and vomiting (20 sources)Nausea and vomiting; Translations: [Nausea with vomiting, unspecified]Onset: 983459-29-2344GzvzbzctYnaetulpb of unspecified nature or uncertain behavior (1 source)Neoplasm of uncertain behavior of skinOnset: 02-15-2022 Resolved: 23-54-8274SpnmqpphIbbrexldhpj chest pain (20 sources)Chest pain; Translations: [Chest pain, unspecified]Onset: 11-10-2023 89-06-9977DkrleuctCfjgn aftercare (12 sources)Follow-up orthopedic assessment; Translations: [Encounter for orthopedic aftercare following surgical amputation]Onset: EpisodicOther aftercare (4 sources)Surgical follow-up; Translations: [Encounter for orthopedic aftercare following surgical amputation]Onset: 226773-68-6573LzdrgjwsUbldu circulatory disease (16 sources)Low blood pressure; Translations: [Hypotension, unspecified]Onset: 686421-36-5198XdxjakbwYvbcs circulatory disease (1 source)Poor peripheral circulation; Translations: [Other specified symptoms and signs involving the circulatory and respiratory systems]00-57-6423Jdbjnify Other connective tissue disease (1 source)Pain in left legOnset: 10-08-2021 Resolved: 01-42-0900RolpadsdRgugc connective tissue disease (20 sources)Fibromyalgia; Translations: [Fibromyalgia]Onset: 10-30-2023 14-57-9050MjreetlaNxguz connective tissue disease (20 sources)Muscle weakness; Translations: [Muscle weakness (generalized)]Onset: 653634-99-6471LuukgrroTjthb connective tissue disease (15 sources)Spasm; Translations: [Other muscle spasm]Onset: EpisodicOther gastrointestinal disorders (20 sources)Diarrhea; Translations: [Diarrhea, unspecified]53-46-3804Auhoslyl Other hematologic conditions (1 source)Other abnormality of red blood cellsOnset: 02-15-2022 Resolved: 49-12-9183DpqgjcodUvncs lower respiratory disease (4 sources)Other nonspecific abnormal finding of lung field; Translations: [OTH NONSPECIFIC ABN FIND LNG FIELD]Onset: 63-43-8930PoinprajSgpsz lower respiratory disease (9 sources)Dyspnea; Translations: [Shortness of breath]Onset: 01-01-2024 09-47-6324HotihqzgRvwxe lower respiratory disease (1 source)Shortness of breath; Translations: [Shortness of breath]Onset: 39-20-8757EyvvgmdpEhcte male genital disorders (20 sources)Disorder of male genital organ; Translations: [Hydrocele, unspecified]Onset: 817646-93-8166MoouhckaFefvs nervous system disorders (11 sources)Pain in limb - multiple; Translations: [Paresthesia of skin]Onset: 337131-46-9392QpyjmqtlSpmki nervous system disorders (11 sources)Paresthesia of lower extremity; Translations: [Paresthesia of skin] Onset: 711699-76-5325LfdylstkIexdt nervous system disorders (20 sources)Finding related to ability to move; Translations: [Other abnormalities of gait and mobility]Onset: 765259-52-0907TqmdwribWymuy non- traumatic joint disorders (1 source)Pain in right hipOnset: 07-27-2021 Resolved: 89-06-1227XokqjgnxEofyo nutritional; endocrine; and metabolic disorders (1 source)Abnormal weight lossOnset: 07-27-2021 Resolved: 53-09-8770BtnzzfcyScpkvzhk codes; unclassified (20 sources)Edema of lower extremity; Translations: [Localized edema]Onset: 826336-34-3165FgcsinmkRuhohmie codes; unclassified (1 source)Insomnia, unspecifiedOnset: 07-27-2021 Resolved: 69-55-0169NvvjikqbRuhlulsy codes; unclassified (20 sources)Altered mental status; Translations: [Altered mental status, unspecified]Onset: 480707-71-3067HvmaicgbLoohabnf codes; unclassified (9 sources)Altered mental status, unspecified; Translations: [Altered mental status]Onset: 875633-69-5619YhritipoPhxakeia codes; unclassified (1 source)Disorientated; Translations: [Disorientation, unspecified]03-15-2024 EpisodicResidual codes; unclassified (1 source)Chronic back painOnset: 749232-84-1001BomxhbiqAozwuvmb codes; unclassified (1 source)Pain, unspecified; Translations: [Pain, unspecified]Onset: 03-12-2024 EpisodicScreening and history of mental health and substance abuse codes (16 sources)Ex-smoker; Translations: [Personal history of tobacco use]Onset: 099398-12-0594AyuyaqzcTjjkyxf on above:qauit 07/2020;Septicemia (except in labor) (20 sources)Sepsis, unspecified organism; Translations: [Bacterial sepsis]Onset: 03-03-2023 Resolved: 72-41-5205HocbwidnGhds and subcutaneous tissue infections (20 sources)Abscess of right foot; Translations: [Cutaneous abscess of right foot]Onset: 08-04-2023 Resolved: 327855-53-6513FuoyvykvTnlgnzondez; intervertebral disc disorders; other back problems (20 sources)Neck pain; Translations: [Cervicalgia]Onset: 852699-93-7224 EpisodicSyncope (20 sources)Syncope; Translations: [Syncope and collapse]Onset: 03-04-2024 49-59-0072OtpprpdcHlmyecplwfgi (1 source)History of amputation of right leg through tibia and -00-1889 Urinary tract infections (2 sources)Urinary tract infection, site not specified; Translations: [Acute urinary tract infection]Onset: 53-00-7283ZephpzaaIvsdagm on above:Outside Source Comment: Comment on above: [...] PT was scheduled and no showed, not trackable.[facility] Heart Perfusion W stress and W radionuclide [place] 08-69-9116Niaqgs SpeakPhoneiscan Myoview cardiac perfusion stress test. No evidence of ischemia or myocardial infarction by perfusion imaging. Normal left ventricular systolic function, ejection fraction 61%. When compared to a study from 2022, no significant interval changes were seen. Signed by: Pascale Arnold 02/05/2025 6:05 PM Dictation workstation: [id number] By: Pascale Arnold, Italo Fernando STUDY: MYOCARDIAL PERFUSION STRESS TEST WITH LEXISCAN Performing facility: [facility], [address], [address], [place] [address] [facility] Provider: Pascale Arnold MD, [facility] PCP: Dr. Wm Lynch Supervising provider: Lui Schmidt DO, [facility] INDICATION: Signs/Symptoms: ,R07.9 Chest pain, unspecified HISTORY: Gender: M; Age: 59 y/o ; Height: HT 182.9 cm cm; Weight: WT 95.709 kg kg. Chest Pain; CAD; High Cholesterol; Diabetes; SOB; COPD; Quit smoking 4 years ago. Cardiac catheterization on 2017. PTCA on 2017. COMPARISON: Previous nuclear testing completed at [facility]. ACCESSION NUMBER(S): [id number] ORDERING CLINICIAN: PASCALE ARNOLD TECHNIQUE: ONE DAY [...] PERFUSION STRESS TEST WITH LEXISCAN Performing facility: [facility], [address], [address], [place] [address] [facility] Provider: Pascale Arnold MD, [facility] PCP: Dr. Wm Lynch Supervising provider: Lui Schmidt DO, [facility] INDICATION: Signs/Symptoms: ,R07.9 Chest pain, unspecified HISTORY: Gender: M; Age: 59 y/o ; Height: HT 182.9 cm cm; Weight: WT 95.709 kg kg. Chest Pain; CAD; High Cholesterol; Diabetes; SOB; COPD; Quit smoking 4 years ago. Cardiac catheterization on 2017. PTCA on 2017. COMPARISON: Previous nuclear testing completed at [facility]. ACCESSION NUMBER(S): [id number] ORDERING CLINICIAN: PASCALE ARNOLD TECHNIQUE: ONE DAY [...] Pascale Arnold 02/05/2025 6:05 PM Dictation workstation: [id number] [facility] Work Phone: [facility] Work Phone: Radiology Study observation (narrative)[facility] Work Phone: NUCLEAR STRESS TESTon [phone] STRESS TEST Interpreted By: Pascale Arnold, and Orquidea Fernando STUDY: MYOCARDIAL PERFUSION STRESS TEST WITH LEXISCAN Performing facility: [facility], [address] [place] [address], [address] Provider: Pascale Arnold MD, FACC PCP: [facility] ACCESSION NUMBER(S): [id number] ORDERING CLINICIAN: PASCALE ARNOLD TECHNIQUE: ONE DAY [...] Pascale Arnold 02/05/2025 6:05 PM Dictation workstation: [id number] A[facility] with Estimated Average Gluon 45-50-1749Lwkwdhw [Mass/Vol]192 mg/dLNormHCA Florida Bayonet Point Hospital Physician GroupComment on above:Result Comment: PERFORMED BY:[address] [place], [place] [phone] MEDICAL DIRECTORBREANNE RUTHERFORD M.D.Performed By: #### A1C [facility] eA ####[address] [place], [place] [address]NGCYbP3w (Bld) [Mass fraction]8.3 %High4.3-5.6The [facility] Physician [facility] Rehabilitation HospitalComment on above:Result Comment: Increased risk for diabetes: 5.7 - 6.4 diabetes: >6.4 glycemic control for adults with diabetes: <7.0Performed By: #### A1C [facility] eA ####[address] [address]PLMHxzfgyr aminotransferase [Enzymatic activity/volume] in Serum or PlasmaOrdered By: Teresa Lynch on 87-79-9403AEH [Catalytic activity/Vol]Alanine aminotransferase [Enzymatic activity/volume] in Serum or PlasmaGalion HospitalAlbumin [Mass/volume] in Serum or Plasma by Bromocresol green (BCG) dye binding methoOrdered By: Teresa Lynch on 03-26-6577Tiwkcsv BCG dye [Mass/Vol] Albumin [Mass/volume] in Serum or Plasma by Bromocresol green (BCG) dye binding metho3.5-5.7FOhioHealth Grant Medical CenterAlkaline phosphatase [Enzymatic activity/volume] in Serum or PlasmaOrdered By: Teresa Lynch on 85-56-7975LIR [Catalytic activity/Vol]Alkaline phosphatase [Enzymatic activity/volume] in Serum or LojcfmThvm75-961WrbkzhcxgGalion HospitalAnisocytosis LM Ql (Bld)Ordered By: Maurice Francis on 79-25-5501Mbbotzwijiyk Ql (Bld)Anisocytosis [Presence] in Blood by Light microscopyGalion Hospital Appearance of UrineOrdered By: Amina Fagan on 29-72-6910Rsjufxsdiv (U)Urine appearanceCleCommunity Regional Medical CenterAspartate aminotransferase [Enzymatic activity/volume] in Serum or PlasmaOrdered By: Teresa Lynch on 55-13-3351DMH [Catalytic activity/Vol]Aspartate aminotransferase [Enzymatic activity/volume] in Serum or Wxqkmd50-42VkjpidtsoGalion Hospital Basophils Auto (Bld) [#/Vol]Ordered By: Maurice Francis on 28-18-7070Wxepgojte (Bld) [#/Vol]Automated basophil count0.0-0.2FOhioHealth Grant Medical Center Basophils/100 WBC Auto (Bld)Ordered By: Maurice Francis on 77-81-9911Rxfahjwyi/100 WBC (Bld)Automated basophil %.Galion HospitalBilirubin Test strip Ql (U)Ordered By: Amina Fagan on 98-91-9522Nbqcrocav Ql (U) Bilirubin.total [Presence] in Urine by Test stripNegativeGalion HospitalBilirubin.total [Mass/volume] in Serum or PlasmaOrdered By: Teresa Lynch on 95-83-8588Mspriecmy [Mass/Vol]Bilirubin.total [Mass/volume] in Serum or Plasma0.3-1.0Galion HospitalBlood estimated average glucose determination by estimation from glycated hemoglobinOrdered By: Teresa Lynch on 95-78-1592Eyripdb glucose Estimated from glycated hemoglobin (Bld) [Mass/Vol] Glucose mean value [Mass/volume] in Blood Estimated from glycated hemoglobin Galion HospitalCalcium [Mass/volume] in Serum or PlasmaOrdered By: Teresa Lynch on 20-13-3442Avfkdhs [Mass/Vol]Calcium [Mass/volume] in Serum or Plasma8.6-10.3FOhioHealth Grant Medical CenterCarbon dioxide, total [Moles/volume] in Serum or PlasmaOrdered By: Teresa Lynch on 75-78-6218YH0 [Moles/Vol]Carbon dioxide, total [Moles/volume] in Serum or Zqxgzx12.0-31.0 Gal[facility] HospitalChloride [Moles/volume] in Serum or Plasma Ordered By: eTresa Lynch on 88-43-7422Bvmmerfl [Moles/Vol]Chloride [Moles/volume] in Serum or Ecphjv10-264SouhyoxehGalion HospitalCholesterol [Mass/volume] in Serum or PlasmaOrdered By: Teresa Lynch on 68-40-4128Euolymdnvwv [Mass/Vol]Cholesterol [Mass/volume] in Serum or ZbggfqGyg101-686TuumdxasjGalion HospitalComment on above:Chol less than 200 mg/dl low riskChol 201-239 mg/dl borderline riskChol 240 mg/dl and greater high riskCholesterol in HDL [Mass/volume] in Serum or PlasmaOrdered By: Teresa Lynch on 10-26-2024 Cholesterol in HDL [Mass/Vol]Serum or plasma high density lipoprotein (HDL) cholesterol vyrzzmiahboByd51-22HrpadjvoyGalion HospitalComment on above:HDL CHOL ATP-III CLASSIFICATION Cardiovascular RiskHDL > or equal to 60 mg/dL LOWHDL < 40 mg/dL HIGHCholesterol in LDL Calc [Mass/Vol]Ordered By: Teresa Lynch on 56-01-0919Nrkfhygmqbx in LDL [Mass/Vol]Cholesterol in LDL [Mass/volume] in Serum or Plasma by calculation0-100Galion HospitalComment on above:LDL ATP III CLASSIFICATIONLDL less than 100 mg/dL OptimalLDL 100-129 mg/dL Near or above eezrxzfAKY608-699 mg/dL Borderline highLDL 160-189 mg/dL HighLDL greater than 189 mg/dL Very highCholesterol in LDL [Mass/volume] in Serum or PlasmaOrdered By: Teresa Lynch on 14-80-0443Oieprqfpzaa in LDL [Mass/Vol] Cholesterol in LDL [Mass/volume] in Serum or PlasmaGalion HospitalComment on above:LDL ATP III CLASSIFICATIONLDL less than 100 mg/dL OptimalLDL 100-129 mg/dL Near or above fjcaxvzWVX214-610 mg/dL Borderline highLDL 160-189 mg/dL HighLDL greater than 189 mg/dL Very highCholesterol in VLDL Calc [Mass/Vol]Ordered By: Teresa Lynch on 81-90-2547Gwjgxyfqdnw in VLDL [Mass/Vol]Cholesterol in VLDL [Mass/volume] in Serum or Plasma by calculation Galion HospitalComment on above:Test not performedColor Auto (U)Ordered By: Amina Fagan on 51-71-0232Ahkdp (U)Color of Urine by AutoYellow Galion HospitalComprehensive Metabolic Panelon 10-26-2024 Albumin [Mass/Vol]4.3 g/dLNormal3.5-5.7The [facility] Physician GroupComment on above:Performed By: #### CMP, RENAL ####[address] [address]UDXXwcwdkh/Globulin [Mass ratio]1.7 {ratio}NormalThe [facility] Community Medical CenterComment on above:Performed By: #### CMP, RENAL ####[address] [place], [place] [address]JVAXVA [Catalytic activity/Vol]132 U/GMttb37-900Fdp [facility] CenterComment on above:Performed By: #### CMP, RENAL ####[address] [address]HBTEAZ [Catalytic activity/Vol]16 U/LNormal7-52The [facility] Medical CenterComment on above:Performed By: #### CMP, RENAL ####[address] [address]WQTBzqhb gap [Moles/Vol]16.4 mmol/LHigh6.0-15.0The [facility] Medical CenterComment on above:Performed By: #### CMP, RENAL ####[address] [address]ORSSZD [Catalytic activity/Vol]13 U/UDnizkx01-62Ssl [facility] CenterComment on above:Performed By: #### CMP, RENAL ####[address]zformerly [facility] [place] [address]TUG Bilirubin [Mass/Vol]0.4 mg/dLNormal0.3-1.0The [facility] Medical CenterComment on above:Performed By: #### CMP, RENAL ####[address] [place] [facility] [place] [address]KOYDmchngr [Mass/Vol]9.4 mg/dLNormal8.6-10.3The [facility] Medical CenterComment on above:Performed By: #### CMP, RENAL ####[address] [place]iceformerly [facility] [place] [address]TUVGkwrlnxw [Moles/Vol]98 mmol/EVjackz60-793Ale [facility] CenterComment on above: Performed By: #### CMP, RENAL ####[address], [place] [address]UCEWF7 [Moles/Vol]27.2 mmol/RBqkqnz15.0-31.0The [facility] Medical CenterComment on above:Performed By: #### CMP, RENAL ####[address] Briceformerly [facility] [place] [place], [place] [address]IGW Creatinine [Mass/Vol]2.36 mg/dLHigh0.70-1.30The [facility] Medical CenterComment on above:Performed By: #### CMP, RENAL ####[address], [place] [address]QVKWkwhitrnt GFR30.940 mL/MinNormYampa Valley Medical CenterComment on above:Performed By: #### CMP, RENAL ####[address] [place]iceformerly [facility] [place], [place] [address]LNDNmtczvbn (S) [Mass/Vol]2.6 g/dLNoUniversity Hospitals TriPoint Medical CenterComment on above:Performed By: #### CMP, RENAL ####[address] [place]iceformerly [facility] [place], [place] [address]QCTVfglmrt [Mass/Vol]264 mg/dJNcrq81-378Mfv [facility] Comment on above:Result Comment: Random Glucose Reference Range is dependent on time and content of last meal. Glucose of more than 200 mg/dL in a nonstressed, ambulatory subject supports the diagnosis of Diabetes Mellitus. ADA recommended reference rangePerformed By: #### CMP, RENAL ####[facility] [place], [place] [address]YDQJqepvfenr [Moles/Vol]4.6 mmol/LNormal 3.5-5.1The [facility] Physician GroupComment on above:Performed By: #### CMP, RENAL ####[facility] [place], [place] [address]CNK Protein [Mass/Vol]6.9 g/dLNormal6.4-8.9The [facility] Physician GroupComment on above:Performed By: #### CMP, RENAL ####[address] [place], [place] [address]CLSKhkxoq [Moles/Vol]137 mmol/XBxuwdd855-580Nxo [facility] Physician GroupComment on above:Performed By: #### CMP, RENAL ####[facility] [place], [place] [address]AVRTger nitrogen [Mass/Vol]33 mg/dLHigh7-25The [facility] Physician [facility] Rehabilitation HospitalComment on above:Performed By: #### CMP, RENAL ####[facility] [place], [place] [address]TQJEqevsnulqe [Mass/volume] in Serum or PlasmaOrdered By: Teresa Lynch on 25-20-1595Oichuuxysr [Mass/Vol]Creatinine [Mass/volume] in Serum or PlasmaHigh0.70-1.30Galion HospitalCreatinine [Mass/volume] in UrineOrdered By: Amina Fagan on 03-84-3953Ugpubswrtc (U) [Mass/Vol]Creatinine [Mass/volume] in UrineGalion Hospital Comment on above:No reference range establishedEosinophils Auto (Bld) [#/Vol] Ordered By: Maurice Francis on 88-82-0193Ejrhshtunxk (Bld) [#/Vol]Automated eosinophil count0.0-0.45Galion HospitalEosinophils/100 WBC Auto (Bld)Ordered By: Maurice Francis on 82-98-2204Qbdkkvdcxnc/100 WBC (Bld) Automated eosinophil %.Galion HospitalErythrocyte distribution width Auto (RBC) [Ratio]Ordered By: Maurice Francis on 15-73-3262Klxwmpvldot distribution width (RBC) [Ratio]Erythrocyte distribution width [Ratio] by Automated tebygAucb96.0-14.8Galion HospitalErythrocyte morphology finding [Identifier] in BloodOrdered By: Maurice Francis on 25-81-6520BFN morphology finding Nom (Bld)RBC morphologyGalion Hospital Ferritinon 19-04-0414Gwwruhtk [Mass/Vol]8.3 ng/mLLow23.9-336.2The [facility] Physician GroupComment on above:Performed By: #### LILA, [id number], URIC, PTH, FE and TIBC ####[facility] [address] [place] [address] USAFerritin [Mass/volume] in Serum or PlasmaOrdered By: Amina Fagan on 49-07-3682Erzkctwk [Mass/Vol]Ferritin [Mass/volume] in Serum or PlasmaLow 23.9-336.2FOhioHealth Grant Medical CenterFolate [Mass/volume] in Serum or PlasmaOrdered By: Amina Fagan on 21-17-4011Wdogxv [Mass/Vol]Folate [Mass/volume] in Serum or Plasma>5.9Galion HospitalComment on above:Folate reference range: >5.9 ng/mlThe WHO technical consultation on folate and vitamin s81bzllvmpusqeb has determined that folate concentrations lessthan 4 ng/ml are considered deficient.Globulin Calc (S) [Mass/Vol]Ordered By: Teresa Lynch on 83-88-1710Ntotdjsf (S) [Mass/Vol]Serum globulin measurement by calculation (mass/volume)Galion HospitalGlucose [Mass/volume] in Serum or PlasmaOrdered By: Teresa Lynch on 62-47-5864Kpoodhi [Mass/Vol]Glucose [Mass/volume] in Serum or AqziclHzva92-963Xmndrzwom [facility] Comment on above:ADA recommended reference rangeRandom Glucose Reference Range is dependent on time and content of last meal. Glucose of more than 200 mg/dL in a nonstressed, ambulatory subject supports the diagnosisof Diabetes Mellitus. Glucose [Mass/volume] in Urine by Test stripOrdered By: Amina Fagan on 07-90-6402Stgsslr Test strip (U) [Mass/Vol]Glucose [Mass/volume] in Urine by Test stripHighNormalGalion HospitalHematocrit Auto (Bld) [Volume fraction]Ordered By: Maurice Francis on 94-78-5660Cpusuivlun (Bld) [Volume fraction]Hematocrit [Volume Fraction] of Blood by Automated count38.8-50.0 Galion HospitalHemoglobin A1c/Hemoglobin.total in BloodOrdered By: Teresa Lynch on 30-75-9880UjI2q (Bld) [Mass fraction]Hemoglobin A1c percentage High4.3-5.6FOhioHealth Grant Medical CenterComment on above:Increased risk for diabetes: 5.7 - 6.4diabetes: >6.4glycemic control for adults with diabetes: &l t;7.0Hemoglobin Test strip Ql (U)Ordered By: Amina Fagan on 10-26-2024 Hemoglobin Ql (U)Hemoglobin [Presence] in Urine by Test stripNegativeGalion HospitalHemoglobin [Mass/volume] in BloodOrdered By: Maurice Francis on 32-72-1284Qvsaunivqt (Bld) [Mass/Vol]Hemoglobin [Mass/volume] in Blood 13.0-17.0Galion HospitalIron [Mass/volume] in Serum or Plasma Ordered By: Amina Fagan on 99-33-8417Fjmp [Mass/Vol]Iron [Mass/volume] in Serum or EshbgrCtr39-538PttglnbxyGalion HospitalIron and TIBC Profileon 10-26-2024% Iron Saturation6.9 %Ans92-41Lfs [facility] Physician GroupComment on above:Performed By: #### LILA, [id number], URIC, PTH, FE and TIBC ####[facility] [address] [place] [address] USAIron [Mass/Vol]31 ug/wMFrn25-637Svg [facility] Physician GroupComment on above:Performed By: #### LILA, [id number], URIC, PTH, FE and TIBC ####[address] [place] [address] USATotal Iron Binding Piokfgnk269 ug/dLNormal 255-450The [facility] Physician [facility] Rehabilitation HospitalComment on above:Performed By: #### LILA, [id number], URIC, PTH, FE and TIBC ####[address] USATransferrin [Mass/Vol]321 mg/kGRbbefm992-323Vbv [facility] Physician [facility] HospitalComment on above:Performed By: #### LILA, [id number], URIC, PTH, FE and TIBC ####[address] USAKetones Test strip Ql (U)Ordered By: Amina Fagan on 17-80-3737Cgehser Ql (U)Ketones [Presence] in Urine by Test stripNegative Galion HospitalLDL Cholesterol Measuredon 60-55-0232CSE Cholesterol Duzextwa44 mg/dLNormal0-100The [facility] Physician [facility] HospitalComment on above:Result Comment: LDL ATP III CLASSIFICATION LDL less than 100 mg/dL Optimal LDL 100-129 mg/dL Near or above optimal LDL 130-159 mg/dL Borderline high LDL 160-189 mg/dL High LDL greater than 189 mg/dL Very highPerformed By: #### LDLD, MG, URIC, TSH3, TIOM54CV, PSAS, LIPID ####[address] USALeukocyte esterase [Presence] in Urine by Test stripOrdered By: Amina Fagan on 62-79-3855Gyysesaew esterase Test strip Ql (U) Leukocyte esterase [Presence] in Urine by Test stripNegativeGalion HospitalLeukocytes [#/volume] corrected for nucleated erythrocytes in Blood by Automated counOrdered By: Maurice Francis on 60-22-5227ZUW corrected for nucl RBC Auto (Bld) [#/Vol]Leukocytes [#/volume] corrected for nucleated erythrocytes in Blood by Automated coun4.1-10.5FOhioHealth Grant Medical Center Lipid Panelon 44-37-7043Dztyqtobosh [Mass/Vol]108 mg/yNIuy376-579Sbe [facility] Physician GroupComment on above:Result Comment: Chol less than 200 mg/dl low risk Chol 201-239 mg/dl borderline risk Chol 240 mg/dland greater high risk Performed By: #### LDLD, MG, URIC, TSH3, JNBE61JR, PSAS, LIPID ####[address] [place] [address] USACholesterol in HDL [Mass/Vol]21 mg/dAPbp83-62Jgs [facility] Physician GroupComment on above:Result Comment: HDL CHOL ATP-III CLASSIFICATION Cardiovascular Risk HDL > or equal to 60 mg/dL LOW HDL < 40 mg/dL HIGHPerformed By: #### LDLD, MG, URIC, TSH3, EZAE52QA, PSAS, LIPID ####[address] [place] [address] USACholesterol.total/Cholesterol in HDL [Mass ratio]5.1 {ratio}Normal<5.0The [facility] Physician GroupComment on above:Performed By: #### LDLD, MG, URIC, TSH3, CPAM56DS, PSAS, LIPID ####[address] [place] [address] USALDL Cholesterol,Calculated<10Normal 0-100The [facility] Physician GroupComment on above:Result Comment: LDL ATP III CLASSIFICATION LDL less than 100 mg/dL Optimal LDL 100-129 mg/dL Near or above optimal LDL 130-159 mg/dL Borderline high LDL 160-189 mg/dL High LDL greater than 189 mg/dL Very highPerformed By: #### LDLD, MG, URIC, TSH3, [id number], PSAS, LIPID ####[address] [address] [facility] Triglyceride w/Kwsyjy178 mg/dLHigh0-149The [facility] Physician GroupComment on above:Result Comment: TRIG [...] resulted.Performed By: #### LDLD, MG, URIC, TSH3, ECNZ90JI, PSAS, LIPID ####[facility] [address] [place] [address] USAVLDL CHOLESTEROLNot performed NormalThe [facility] Physician GroupComment on above:Performed By: #### LDLD, MG, URIC, TSH3, [id number], PSAS, LIPID ####[facility] [address] [place] [address] USALymphocytes Auto (Bld) [#/Vol]Ordered By: Maurice Francis on 28-31-8804Zsgjdcxrzvd (Bld) [#/Vol]Lymphocytes [#/volume] in Blood by Automated count1.00-4.8Galion HospitalLymphocytes/100 WBC Auto (Bld)Ordered By: Maurice Francis on 34-40-8974Gvinimzrltz/100 WBC (Bld) Lymphocytes/100 leukocytes in Blood by Automated count.[facility] Auto (RBC) [Entitic mass]Ordered By: Maurice Francis on 10-26-2024 MCH (RBC) [Entitic mass]MCH [Entitic mass] by Automated tnoqiYfj04.5-35.2 The [facility] HospitalHC Auto (RBC) [Mass/Vol]Ordered By: Maurice Francis on 97-35-6737EEVZ (RBC) [Mass/Vol]MCHC [Mass/volume] by Automated count 32.5-35.6FWright-Patterson Medical CenterV Auto (RBC) [Entitic vol]Ordered By: Maurice Francis on 69-44-5232KBB (RBC) [Entitic vol]MCV [Entitic volume] by Automated zurbmKoe37.5-101Galion HospitalMagnesiumon 10-32-4963Slxwvindo [Mass/Vol]1.8 mg/dLLow1.9-2.7The [facility] Physician Group Comment on above:Performed By: #### LDLD, MG, URIC, TSH3, [id number], PSAS, LIPID ####[facility] [place] [address] [facility] Magnesium [Mass/volume] in Serum or PlasmaOrdered By: Teresa Lynch on 10-26-2024 Magnesium [Mass/Vol]Magnesium [Mass/volume] in Serum or PlasmaLow1.9-2.7 [facility] HospitalMicroalbumin [Mass/volume] in UrineOrdered By: Teresa Lynch on 25-03-2586Enfmqsk DL <= 20 mg/L (U) [Mass/Vol]Microalbumin [Mass/volume] in Urine0.0-1.8Galion HospitalMicroalbumin, Urine (Random)on 31-62-7548Jlrtkhx DL <= 20 mg/L (U) [Mass/Vol]0.9 mg/dLNormal 0.0-1.8The [facility] Physician GroupComment on above:Result Comment: PERFORMED BY:[address] [place], [place] [phone] MEDICAL DIRECTORBREANNE RUTHERFORD M.D.Performed By: #### URMA ####[facility] [place] [address] [facility] Microcytes LM Ql (Bld)Ordered By: Maurice Francis on 25-48-3362Lwheemelim Ql (Bld) Microcytes [Presence] in Blood by Light microscopyGalion HospitalMonocytes Auto (Bld) [#/Vol]Ordered By: Maurice Reinar on 10-27-3862Xinesssfv (Bld) [#/Vol]Automated blood monocyte count0.0-0.8Galion HospitalMonocytes/100 WBC Auto (Bld)Ordered By: Maurice Tito on 10-26-2024 Monocytes/100 WBC (Bld)Automated monocyte %.[facility] Neutrophils Auto (Bld) [#/Vol]Ordered By: Maurice Reinar on 60-50-4986Ifxqplteepi (Bld) [#/Vol]Neutrophils [#/volume] in Blood by Automated count1.8-7.7FOhioHealth Grant Medical CenterNeutrophils/100 WBC Auto (Bld)Ordered By: Maurice Francis on 60-64-5747Hgsqkpqtdlr/100 WBC (Bld)Automated neutrophil %.Galion HospitalNitrite Test strip Ql (U)Ordered By: Amina Fagan on 10-26-2024 Nitrite Ql (U)Nitrite [Presence] in Urine by Test stripNegativeGalion HospitalNo Panel InformationOrdered By: Teresa Lynch on 10-26-2024 Estimated GFR (CKD-EPI)30.940 mL/MinGalion HospitalPharmacy Creatinine Clearance (ChemN/[facility]30.940 mL/Min Galion HospitalN/[facility] HospitalNucleated erythrocytes [Presence] in Blood by Automated countOrdered By: Maurice Francis on 56-31-3551Knjusvhvg RBC Auto Ql (Bld)Nucleated erythrocytes [Presence] in Blood by Automated count0-0.5FOhioHealth Grant Medical CenterPSA Screen (Yearly Only) on 87-92-1938LVZ Screen (Yearly Only)1.160 ng/mLNormal0.000-4.000The [facility] Physician GroupComment on above:Result Comment: Serial tumor marker results determined by assays using different manufacturers or methods may not be comparable. [facility] docketing specialist and method: [employer] DXI, CHEMILUMINESCENT IMMUNOASSAY.PERFORMED BY:[address] [place], [place] [phone] MEDICAL DIRECTORBREANNE RUTHERFORD M.D.Performed By: #### LDLD, MG, URIC, TSH3, [id number], PSAS, LIPID ####[address] [address] [facility] Parathyrin.intact [Mass/volume] in Serum or PlasmaOrdered By: Amina Fagan on 80-46-7815Biyxcvxbnm.intact [Mass/Vol]Parathyrin.intact [Mass/volume] in Serum or Lohoqu21-12SdyhlwpjtGalion HospitalParathyroid Hormone Intacton 49-51-0149Qwywolmrdtf Hormone Kuztdv51.9 pg/lLUhxtxn26-86Vlm [facility] Physician GroupComment on above:Result Comment: PERFORMED BY:[address] [place], [place] [phone] MEDICAL DIRECTORBREANNE RUTHERFORD M.D.Performed By: #### LILA, [id number], URIC, PTH, FE and TIBC ####[facility] [address] [place] [address] USAPhosphate [Mass/volume] in Serum or PlasmaOrdered By: Teresa Lynch on 63-90-4499Xvnwgaomu [Mass/Vol]Phosphate [Mass/volume] in Serum or Plasma2.5-4.5 [facility] HospitalPlatelet adequacy [Presence] in Blood by Light microscopyOrdered By: Maurice Tito on 00-51-7218Rarkquery LM Ql (Bld)Platelet adequacy [Presence] in Blood by Light microscopyNormShelby Memorial HospitalPlatelet mean volume Auto (Bld) [Entitic vol]Ordered By: Maurice Tito on 62-72-4242Fzdezheg mean volume (Bld) [Entitic vol]Platelet mean volume [Entitic volume] in Blood by Automated count6.6-10.1FOhioHealth Grant Medical Center Platelet morphology finding [Identifier] in BloodOrdered By: Maurice Tito on 10-10-7077Zhmbebkk morphology finding Nom (Bld)Platelet morphology finding [Identifier] in BloodGalion HospitalPlatelets Auto (Bld) [#/Vol]Ordered By: Maurice Tito on 65-55-7853Mhhbbotzj (Bld) [#/Vol]Platelets [#/volume] in Blood by Automated ulmtz245-120HzuxlqephGalion Hospital Platelets Large [Presence] in Blood by Light microscopyOrdered By: Maurice Tito on 20-56-1417Nbhxzrtyi Large LM Ql (Bld)Platelets Large [Presence] in Blood by Light microscopyGalion HospitalPolychromasia [Presence] in Blood by Light microscopyOrdered By: Maurice Tito on 60-15-1822Ktaygyamssani LM Ql (Bld)Polychromasia [Presence] in Blood by Light microscopyGalion HospitalPotassium [Moles/volume] in Serum or PlasmaOrdered By: Teresa Lynch on 29-97-1775Hbsvebaol [Moles/Vol]Potassium [Moles/volume] in Serum or Plasma 3.5-5.1FOhioHealth Grant Medical CenterProstate specific Ag [Mass/volume] in Serum or PlasmaOrdered By: Teresa Lynch on 95-70-1077Fufcuheg specific Ag [Mass/Vol]Prostate specific Ag [Mass/volume] in Serum or Plasma0.000-4.000 [facility] HospitalComment on above:Serial tumor marker results determined by assays using different manufacturers or methods may not be comparable.[facility] docketing specialist and method:Northwest Evaluation AssociationEL DXI, CHEMILUMINESCENT IMMUNOASSAY.Protein Creat Ratio Ur Randomon 10-26-2024 Creatinine, Urine (Random)62.00 mg/dLNormalThe [facility] Physician [facility] HospitalComment on above:Result Comment: No reference range establishedPerformed By: #### NORA COON ####[address] [address] USAProtein (U) [Mass/Vol]12 mg/dLHigh0-9The [facility] Comment on above:Performed By: #### NORA COON ####[address] [address] USAUrine Protein/Creatinine Pjvkq828 mg/g{Cre}Normal0-200The [facility] Physician [facility] HospitalComment on above:Result Comment: PERFORMED BY:[address] [place], [place] [phone] MEDICAL MARY RUTHERFORD M.D.Performed By: #### NORA COON ####[address] [address] USAProtein Test strip (U) [Mass/Vol]Ordered By: Amina Fagan on 69-13-6960Nzvcigm (U) [Mass/Vol]Protein [Mass/volume] in Urine by Test stripNegativeGalion HospitalProtein [Mass/volume] in Serum or PlasmaOrdered By: Teresa Lynch on 28-04-2718Kuzobju [Mass/Vol]Protein [Mass/volume] in Serum or Plasma6.4-8.9[facility] HospitalProtein [Mass/volume] in UrineOrdered By: Amina Fagan on 74-85-9564Fbzuuho (U) [Mass/Vol]Protein [Mass/volume] in UrineHigh0-9[facility] RBC Auto (Bld) [#/Vol]Ordered By: Maurice Francis on 87-81-4464HCM (Bld) [#/Vol] Erythrocytes [#/volume] in Blood by Automated count3.90-5.60[facility] HospitalRenal Function Panelon 07-01-6174Qnxrsjlqk [Mass/Vol]3.9 mg/dL Normal2.5-4.5The [facility] Physician GroupComment on above:Result Comment: PERFORMED BY:[address] [place], [place] [phone] MEDICAL DIRECTORBREANNE RUTHERFORD M.D.Performed By: #### CMP, RENAL ####[address] [address]AEIYssk and CBCon 77-86-9611Ryjfgnvkankd Ql (Bld)MarkedNormalThe [facility] Physician [facility] HospitalComment on above:Performed By: #### SCAN CBC ####[address] [address] USABasophils (Bld) [#/Vol]0.1 10*3/uLNormal0.0-0.2The [facility] Physician [facility] HospitalComment on above: Performed By: #### SCAN CBC ####[address] [address] USABasophils/100 WBC (Bld)1.1 %Normal.The [facility] Physician GroupComment on above:Performed By: #### SCAN CBC ####[address] [address] USAEosinophils (Bld) [#/Vol]0.3 10*3/uLNormal0.0-0.45The [facility] Physician [facility] HospitalComment on above: Performed By: #### SCAN CBC ####[address] [address] USAEosinophils/100 WBC (Bld)3.5 %Normal.The [facility] Physician GroupComment on above:Performed By: #### SCAN CBC ####[address] [address] USAErythrocyte distribution width (RBC) [Ratio]21.5 %High12.0-14.8The [facility] Comment on above:Performed By: #### SCAN CBC ####[address] [address] USAHematocrit (Bld) [Volume fraction]42.7 %Bqfxrl26.8-50.0The [facility] Physician GroupComment on above:Performed By: #### SCAN CBC ####[address] [address] USAHemoglobin (Bld) [Mass/Vol]14.3 g/aSCzgwji20.0-17.0The [facility] Physician GroupComment on above:Performed By: #### SCAN CBC ####[address] [address] USALarge PlateletsSlightNormalThe [facility] Physician GroupComment on above:Result Comment: PERFORMED BY:[address] [place], [place] [phone] MEDICAL DIRECTORBREANNE RUTHERFORD M.D.Performed By: #### SCAN CBC ####[address] [address] USALymphocytes (Bld) [#/Vol]1.6 10*3/uLNormal1.00-4.8The [facility] Physician GroupComment on above: Performed By: #### SCAN CBC ####[address] [address] USALymphocytes/100 WBC (Bld)17.7 %Normal.The [facility] Physician GroupComment on above:Performed By: #### SCAN CBC ####[address] [address] USAMCH (RBC) [Entitic mass]25.9 pgLow27.5-35.2The [facility] Physician GroupComment on above:Performed By: #### SCAN CBC ####[place] [id number] USAMCV (RBC) [Entitic vol]77.1 fLLow83.5-101The [facility] Physician GroupComment on above:Performed By: #### SCAN CBC ####[place] [address] USAMean Corpuscular HGB Conc33.6 g/dL Fifziu71.5-35.6The [facility] Physician GroupComment on above:Performed By: #### SCAN CBC ####[place] [address] USAMicrocytosisSlightNormalThe [facility] Physician GroupComment on above: Performed By: #### SCAN CBC ####[place] [address] USAMonocytes (Bld) [#/Vol]0.8 10*3/uLNormal0.0-0.8The [facility] Physician GroupComment on above:Performed By: #### SCAN CBC ####[place] [address] [place] Monocytes/100 WBC (Bld)9.2 %Normal.The [facility] Physician GroupComment on above:Performed By: #### SCAN CBC ####[place] [address] USANeutrophils (Bld) [#/Vol]6.0 10*3/uLNormal1.8-7.7The [facility] Physician GroupComment on above:Performed By: #### SCAN CBC ####[place] [address] [place] Neutrophils/100 WBC (Bld)68.5 %Normal.The [facility] Physician GroupComment on above:Performed By: #### SCAN CBC ####[place] [address] USANRBC%0.1 /100{WBC}Normal0-0.5The [facility] Physician GroupComment on above:Performed By: #### SCAN CBC ####[place] [address] USAPlatelet EstimateNormalNormal NormalThe [facility] Physician GroupComment on above:Performed By: #### SCAN CBC ####[place] [address] [place] Platelet mean volume (Bld) [Entitic vol]9.5 fLNormal6.6-10.1The [facility] Physician GroupComment on above:Performed By: #### SCAN CBC ####[place] [id number] USAPlatelets (Bld) [#/Vol]167 10*3/zJCcimyq824-175Pfl [facility] Physician GroupComment on above: Performed By: #### SCAN CBC ####[place] [address] USAPolychromasiaSlightNormalThe [facility] Physician GroupComment on above:Performed By: #### SCAN CBC ####[place] [address] USARBC (Bld) [#/Vol]5.54 10*6/uLNormal 3.90-5.60The [facility] Physician GroupComment on above:Performed By: #### SCAN CBC ####[place] [address] USAWBC (Bld) [#/Vol]8.8 10*3/uLNormal4.1-10.5The [facility] Physician GroupComment on above:Performed By: #### SCAN CBC ####[place] [address] USASerum or plasma albumin/globulin mass ratioOrdered By: Teresa Lynch on 57-74-4003Xsmkpvj/Globulin [Mass ratio]Serum or plasma albumin/globulin mass ratioSouthern Ohio Medical Centererum or plasma anion gap determinationOrdered By: Tereas Lynch on 81-97-0193Inhln gap [Moles/Vol] Serum or plasma anion gap determinationHigh6.0-15.0[facility] Medical Centererum or plasma iron binding capacity measurement (mass/volume)Ordered By: Amina Fagan on 06-23-8919Mxao binding capacity [Mass/Vol]Iron binding capacity [Mass/volume] in Serum or Juxcbi335-460LxolwbaakSouthern Ohio Medical Centererum or plasma iron saturation measurement (mass fraction)Ordered By: Amina Fagan on 04-93-7587Ygfy saturation [Mass fraction]Iron saturation [Mass Fraction] in Serum or LgkkcsFmi91-13QsyiygnraSouthern Ohio Medical Centererum or plasma total cholesterol/high density lipoprotein (HDL) cholesterol mass ratOrdered By: Teresa Lynch on 60-91-5640Bwqkbtxygev.total/Cholesterol in HDL [Mass ratio]Serum or plasma total cholesterol/high density lipoprotein (HDL) cholesterol mass rat<5.0 [facility] Medical Centerodium [Moles/volume] in Serum or PlasmaOrdered By: Teresa Lynch on 51-89-0227Yjtidw [Moles/Vol]Sodium [Moles/volume] in Serum or Jonckv159-187SorgbjurdSouthern Ohio Medical Centerpecific gravity Test strip (U) [Rel density]Ordered By: Amina Fagan on 08-51-2900Uonhjryi gravity (U) [Rel density]Specific gravity of Urine by Test strip1.001-1.030[facility] HospitalThyroid Stimulating Hormoneon 69-01-7259WUI Qn3.68 m[IU]/LNormal 0.45-5.33The [facility] Physician GroupComment on above:Performed By: #### LDLD, MG, URIC, TSH3, GXPY45KV, PSAS, LIPID ####[facility] [address] [place] [address] USAThyrotropin [Units/volume] in Serum or Plasma Ordered By: Teresa Lynch on 88-01-9918AXB QnThyrotropin [Units/volume] in Serum or Plasma0.45-5.33[facility] HospitalTransferrin [Mass/volume] in Serum or PlasmaOrdered By: Amina Fagan on 36-36-0012Hypebjomeih [Mass/Vol] Transferrin [Mass/volume] in Serum or Vsqbtf330-337LvrlzlhyiGalion HospitalTriglyceride [Mass/volume] in Serum or PlasmaOrdered By: Teresa Lynch on 22-67-5812Jkhzjxvfoqtp [Mass/Vol]Triglyceride [Mass/volume] in Serum or Plasma High0-149[facility] HospitalComment on above:If the triglyceride result is greater than 400, LDLC and related calculations cannot be calculated a nd resulted.TRIG ATP III CLASSIFICATIONTRIG less than 150 mg/dL NormalTRIG 150- 199 mg/dL BorderlinehighTRIG 200-500 mg/dL High TRIG greater than 500 mg/dL Very highStandard traceable to the Center for Disease Conrtrol and Prevention (CDC) test method.Urate [Mass/volume] in Serum or PlasmaOrdered By: Amina Fagan on 92-25-9463Uuqee [Mass/Vol]Urate [Mass/volume] in Serum or PlasmaHigh4.4-7.6 [facility] HospitalUrea nitrogen [Mass/volume] in Serum or Plasma Ordered By: Teresa Lynch on 98-16-9503Nixs nitrogen [Mass/Vol]Urea nitrogen [Mass/volume] in Serum or PlasmaHigh7-25[facility] HospitalUric Acidon 97-07-0669Kstbn [Mass/Vol]10.5 mg/dLHigh4.4-7.6The [facility] Physician GroupComment on above:Performed By: #### LILA, TUDW39ZYI, URIC, PTH, FE and TIBC ####[address] [address] USAUrate [Mass/Vol]10.5 mg/dLHigh4.4-7.6The [facility] Physician GroupComment on above: Performed By: #### LDLD, MG, URIC, TSH3, CMNN81XV, PSAS, LIPID ####[address] [address] USAUrinalysison 37-99-8144Vpcxdtwvlm (U)ClearNormalClearThe [facility] Physician GroupComment on above:Order Comment: Name Collection Type:: Clean-Voided MidstreamPerformed By: #### PROCRERAT, UA ####[place] [id number] USABilirubin,UrineNegativeNormalNegativeThe [facility] Comment on above:Order Comment: Name Collection Type:: Clean-Voided Midstream Performed By: #### PROCRERAT, UA ####[address] [address] USAColor (U)Light-YellowNormalYellowThe [facility] Physician GroupComment on above:Order Comment: Name Collection Type:: Clean- Voided MidstreamPerformed By: #### PROCRERAT, UA ####[address] [address] USAGlucose Ql (U)>=HighNoThe [facility] Hospital Physician GroupComment on above:Order Comment: Name Collection Type:: Clean-Voided MidstreamPerformed By: #### PROCRERAT, UA ####[address] [address] USAKetones Ql (U)NegativeNormal NegativeThe [facility] Physician GroupComment on above:Order Comment: Name Collection Type:: Clean-Voided MidstreamPerformed By: #### PROCRERAT, UA ####[address] [address] [place] Leukocyte esterase Test strip Ql (U)NegativeNormalNegativeThe [facility] Physician GroupComment on above:Order Comment: Name Collection Type:: Clean- Voided MidstreamPerformed By: #### PROCRERAT, UA ####[address] [address] USANitrite,UrineNegativeNormalNegativeThe [facility] Physician GroupComment on above:Order Comment: Name Collection Type:: Clean-Voided MidstreamPerformed By: #### PROCRERAT, UA ####[address] [address] USAOccult Blood,UrineNegative NormalNegativeThe [facility] Physician GroupComment on above:Order Comment: Name Collection Type:: Clean-Voided MidstreamResult Comment: PERFORMED BY:[place] [address] [address] [place], [place] [phone] MEDICAL MARY RUTHERFORD M.D.Performed By: #### PROCRERAT, UA ####[address] [address] USApH (U) 5.5 [pH]Normal5.0-9.0The [facility] Physician GroupComment on above:Order Comment: Name Collection Type:: Clean-Voided MidstreamPerformed By: #### PROCRERAT, UA ####[address] [address] USAProtein,UrineNegativeNormalNegativeThe [facility] Physician GroupComment on above:Order Comment: Name Collection Type:: Clean-Voided MidstreamPerformed By: #### PROCRERAT, UA ####[address] [address] USASpecificy Perry,Urine1.820Gpbgqo8.001-1.030The [facility] Physician GroupComment on above:Order Comment: Name Collection Type:: Clean-Voided MidstreamPerformed By: #### PROCRERAT, UA ####[address] [address] USAUrobilinogen,UrineNormalNormal NormalThe [facility] Physician GroupComment on above:Order Comment: Name Collection Type:: Clean-Voided MidstreamPerformed By: #### PROCRERAT, UA ####[address] [address] USAUrine protein/creatinine ratioOrdered By: Amina Fagan on 69-36-0464Hlpdoyw/Creatinine (U) [Ratio]Urine protein/creatinine ratio0-200[facility] Urobilinogen Test strip (U) [Mass/Vol]Ordered By: Amina Fagan on 10-26-2024 Urobilinogen (U) [Mass/Vol]Urobilinogen [Mass/volume] in Urine by Test strip [facility] HospitalVit. B12/Folate Profileon 10-26-2024 Cobalamin (Vitamin B12) [Mass/Vol]195 pg/sJSvuafw318-658Tzy [facility] Physician GroupComment on above:Performed By: #### LILA, [id number], URIC, PTH, FE and TIBC ####[address] [address] USAFolate 10.1 ng/mLNormal>5.9The [facility] Physician GroupComment on above:Result Comment: Folate reference range: >5.9 ng/ml The WHO technical consultation on folate and vitamin b12 deficiencies has determined that folate concentrations less than 4 ng/ml are considered deficient.PERFORMED BY:[place] [address] [address] [place], [place] [phone] MEDICAL DIRECTORBREANNE RUTHERFORD M.D.Performed By: #### LILA, [id number], URIC, PTH, FE and TIBC ####[address] [address] [facility] CENTERVitamin B12 ser/plasOrdered By: Amina Fagan on 07-13-4891Dlexfkcbe (Vitamin B12) [Mass/Vol]Vitamin B12 ser/bctz650-416YbpgkeiueGalion Hospital Vitamin D 25 Hydroxy Totalon 59-69-1456Ifvsyue D 25 Hydroxy Total17.0 ng/mLLow 30-100The [facility] Physician GroupComment on above:Result Comment: VITAMIN D STATUS 25(OH)VITAMIN D RANGE (ng/mL) Deficient <20 Insufficient 20 to <30 Sufficient 30 to 100 Reference: Ibrahima Reyes, Kasey LONG, et al. Evaluation,treatment, and prevention of vitamin D deficiency; an Endocrine Society clinical practice guideline.JCEM. 2010; 96(7):1911-30.PERFORMED BY:[place] [address] [address] [place], [place] [phone] MEDICAL MARY RUTHERFORD M.D.Performed By: #### LDLD, MG, URIC, TSH3, AVQS66ZQ, PSAS, LIPID ####[address] [address] [facility] CENTERVitamin D+Metabolites [Mass/volume] in Serum or PlasmaOrdered By: Teresa Lynch on 52-89-3979Ltaaaik D+Metabolites [Mass/Vol]Vitamin D+Metabolites [Mass/volume] in Serum or OzqqqdGsg82-200 [facility] HospitalComment on above:VITAMIN D STATUS 25(OH)VITAMIN D RANGE (ng/mL) Deficient <20 Insufficient 20 to <01Qstzfopqdh45 to 100Reference: Ibrahima Reyes, Kasey LONG, et al. Evaluation,treatment, and prevention of vitamin D deficiency; an Endocrine Society clinical practice guideline. JCEM. 2010; 96(7):1911-30.WBC Auto (Bld) [#/Vol]Ordered By: Maurice Francis on 91-06-7282ZOP (Bld) [#/Vol]Leukocytes [#/volume] in Blood by Automated count4.1-10.5FOhioHealth Grant Medical Center pH Test strip (U)Ordered By: Amina Fagan on 65-89-0404bF (U)pH of Urine by Test strip5.0-9.0[facility] HospitalAnisocytosis LM Ql (Bld)Ordered By: Abdullahi Canchola on 88-79-6824Kafjkghwudfw Ql (Bld)Anisocytosis [Presence] in Blood by Light microscopyGalion HospitalBasic Metabolic Panel on 05-58-3926Tfpff gap [Moles/Vol]15.7 mmol/LHigh6.0-15.0The [facility] Physician GroupComment on above:Performed By: #### BMP, CK, HS TROP, FE and TIBC, LILA, MG, SCAN CBC ####[place] [id number] USACalcium [Mass/Vol]8.9 mg/dLNormal8.6-10.3The [facility] Comment on above:Performed By: #### BMP, CK, HS TROP, FE and TIBC, LILA, MG, SCAN CBC ####[address] [address] [place] Chloride [Moles/Vol]99 mmol/VXlvind33-007Mkl [facility] Physician GroupComment on above:Performed By: #### BMP, CK, HS TROP, FE and TIBC, LILA, MG, SCAN CBC ####[address] [address] USACO2 [Moles/Vol]25.5 mmol/DLccrso46.0-31.0The [facility] Physician GroupComment on above:Performed By: #### BMP, CK, HS TROP, FE and TIBC, LILA, MG, SCAN CBC ####[place] [address] [place] Creatinine [Mass/Vol]2.43 mg/dLHigh0.70-1.30The [facility] Physician GroupComment on above:Performed By: #### BMP, CK, HS TROP, FE and TIBC, LILA, MG, SCAN CBC ####[place] [address] [address] Creatinine Clr Calc Gmilicmi90.93NoThe [facility] Physician GroupComment on above:Performed By: #### BMP, CK, HS TROP, FE and TIBC, LILA, MG, SCAN CBC ####[place] [address] [address] Estimated GFR29.874 mL/MinNoThe [facility] Physician GroupComment on above: Performed By: #### BMP, CK, HS TROP, FE and TIBC, LILA, MG, SCAN CBC ####[place] [address] USAGlucose [Mass/Vol]221 mg/mKHvsp36-968Mhy [facility] Physician GroupComment on above: Result Comment: Random Glucose Reference Range is dependent on time and content of last meal. Glucose of more than 200 mg/dL in a nonstressed, ambulatory subject supports the diagnosis of Diabetes Mellitus. ADA recommended reference rangePerformed By: #### BMP, CK, HS TROP, FE and TIBC, LILA, MG, SCAN CBC ####[address] Potassium [Moles/Vol]4.2 mmol/LNormal3.5-5.1The [facility] Physician GroupComment on above:Performed By: #### BMP, CK, HS TROP, FE and TIBC, LILA, MG, SCAN CBC ####[place] [address] USASodium [Moles/Vol]136 mmol/NVqgslu466-890Zyj [facility] Physician GroupComment on above: Performed By: #### BMP, CK, HS TROP, FE and TIBC, LILA, MG, SCAN CBC ####[place] [address] USAUrea nitrogen [Mass/Vol]39 mg/dLHigh7-25The [facility] Physician GroupComment on above:Performed By: #### BMP, CK, HS TROP, FE and TIBC, LILA, MG, SCAN CBC ####[facility] [address] [place] [id number] [facility] Basophils Auto (Bld) [#/Vol]Ordered By: Abdullahi Canchola on 61-24-9539Ovaxqulnb (Bld) [#/Vol]Automated basophil count0.0-0.2FOhioHealth Grant Medical Center Basophils/100 WBC Auto (Bld)Ordered By: Abdullahi Canchola on 10-11-2024 Basophils/100 WBC (Bld)Automated basophil %.[facility] Calcium [Mass/volume] in Serum or PlasmaOrdered By: Abdullahi Canchola on 10-11-2024 Calcium [Mass/Vol]Calcium [Mass/volume] in Serum or Plasma8.6-10.3FOhioHealth Grant Medical CenterCarbon dioxide, total [Moles/volume] in Serum or Plasma Ordered By: Abdullahi Canchola on 14-92-3924WL7 [Moles/Vol]Carbon dioxide, total [Moles/volume] in Serum or Npldiq62.0-31.0[facility] Chloride [Moles/volume] in Serum or PlasmaOrdered By: Abdullahi Canchola on 80-82-1967Zrfrqzxg [Moles/Vol]Chloride [Moles/volume] in Serum or Saotpt42-621 [facility] HospitalCreatine Kinaseon 91-53-0408CX [Catalytic activity/Vol]91 U/XBjtdwv66-218Pns [facility] Physician GroupComment on above: Performed By: #### BMP, CK, HS TROP, FE and TIBC, LILA, MG, SCAN CBC ####[facility] [address] [place] [address] [facility] Creatine kinase [Enzymatic activity/volume] in Serum or PlasmaOrdered By: Abdullahi Canchola on 51-30-0541ZI [Catalytic activity/Vol]Creatine kinase [Enzymatic activity/volume] in Serum or Uejqwy51-328KdozrmqclGalion HospitalCreatinine [Mass/volume] in Serum or PlasmaOrdered By: Abdullahi Canchola on 07-82-0008Uperncvygy [Mass/Vol]Creatinine [Mass/volume] in Serum or PlasmaHigh 0.70-1.30[facility] HospitalECH echo transthoracicon 47-95-6148ZKZ echo transthoracicNormalThe [facility] Physician GroupEosinophils Auto (Bld) [#/Vol]Ordered By: Abdullahi Canchola on 91-19-7004Nzwpksoibfq (Bld) [#/Vol] Automated eosinophil count0.0-0.45[facility] Eosinophils/100 WBC Auto (Bld)Ordered By: Abdullahi Canchola on 10-11-2024 Eosinophils/100 WBC (Bld)Automated eosinophil %.[facility] HospitalErythrocyte distribution width Auto (RBC) [Ratio]Ordered By: Abdullahi Canchola on 02-12-9969Rmmttmuswpm distribution width (RBC) [Ratio]Erythrocyte distribution width [Ratio] by Automated glzosFsnh90.0-14.8[facility] HospitalErythrocyte morphology finding [Identifier] in BloodOrdered By: Abdullahi Canchola on 01-46-7509WBO morphology finding Nom (Bld)RBC morphology [facility] HospitalFerritinon 95-11-4860Gecymqqh [Mass/Vol]8.2 ng/mLLow23.9-336.2The [facility] Physician GroupComment on above:Result Comment: PERFORMED BY:[address] [place], [place] [phone] MEDICAL DIRECTORMIKE CABAN M.D. Performed By: #### BMP, CK, HS TROP, FE and TIBC, LILA, MG, SCAN CBC ####[facility] [address] [place] [address] [facility] Ferritin [Mass/volume] in Serum or PlasmaOrdered By: Abdullahi Canchola on 15-12-4482Bxkhcpyb [Mass/Vol]Ferritin [Mass/volume] in Serum or PlasmaLow 23.9-336.2FOhioHealth Grant Medical CenterGlucose Glucometer (BldC) [Mass/Vol] Ordered By: Abdullahi Canchola on 24-85-6999Rjlgfgo [Mass/Vol]Capillary blood glucose measurement by glucometer (mass/volume)[facility] Comment on above:Random Glucose Reference Range is dependent on time and content of last meal. Glucose of more than 200 mg/dL in a nonstressed, ambulatory subject supports the diagnosis of Diabetes Mellitus.Glucose Poct Glucometerson 70-48-6527Rlkbenr6Ovp0: Cleaned MeterAdventHealth Palm Coast Parkway Physician GroupComment on above:Result Comment: PERFORMED BY:[place] [address] [address] [place], [place] [phone] MEDICAL DIRECTORMIKE CABAN M.D.Performed By: #### GLULS ####Point of Care testing,Glucose [Mass/Vol]194 mg/dLAdventHealth Palm Coast Parkway Physician GroupComment on above:Result Comment: Random Glucose Reference Range is dependent on time and content of last meal. Glucose of more than 200 mg/dL in a nonstressed, ambulatory subject supports the diagnosis of Diabetes Mellitus.Performed By: #### GLULS ####Point of Care testing,Zgvqnex8Apn7: Neelima MeterAdventHealth Palm Coast Parkway Physician Comment on above:Result Comment: PERFORMED BY:[place] [address] [address] [place], [place] [phone] MEDICAL DIRECTORMIKE CABAN M.D.Performed By: #### GLULS ####Point of Care testing,Glucose [Mass/Vol]229 mg/dLAdventHealth Palm Coast Parkway Physician GroupComment on above:Result Comment: Random Glucose Reference Range is dependent on time and content of last meal. Glucose of more than 200 mg/dL in a nonstressed, ambulatory subject supports the diagnosis of Diabetes Mellitus.Performed By: #### GLULS ####Point of Care testing,Glucose [Mass/volume] in Serum or Plasma Ordered By: Abdullahi Canchola on 37-58-0725Wpknafk [Mass/Vol]Glucose [Mass/volume] in Serum or VybbmrNqoc59-348FlyzufbeqGalion HospitalComment on above: ADA recommended reference rangeRandom Glucose Reference Range is dependent on time and content of last meal. Glucose of more than 200 mg/dL in a nonstressed, ambulatory subject supports the diagnosisof Diabetes Mellitus.Hematocrit Auto (Bld) [Volume fraction]Ordered By: Abdullahi Canchola on 03-08-8179Lbyohduaxd (Bld) [Volume fraction]Hematocrit [Volume Fraction] of Blood by Automated count 38.8-50.0[facility] HospitalHemoglobin [Mass/volume] in Blood Ordered By: Abdullahi Canchola on 30-02-6083Tkzordywpo (Bld) [Mass/Vol]Hemoglobin [Mass/volume] in Blood13.0-17.0[facility] HospitalIron [Mass/volume] in Serum or PlasmaOrdered By: Abdullahi Canchola on 28-64-0114Bjam [Mass/Vol]Iron [Mass/volume] in Serum or VyfdyuYla97-159EcnhlsqqbGalion HospitalIron and TIBC Profileon 10-11-2024% Iron Saturation9.1 %Usv62-20 [facility] Physician GroupComment on above:Performed By: #### BMP, CK, HS TROP, FE and TIBC, LILA, MG, SCAN CBC ####[address] [place] [address] USAIron [Mass/Vol]37 ug/bGCrj19-901Wrz [facility] Physician GroupComment on above:Performed By: #### BMP, CK, HS TROP, FE and TIBC, LILA, MG, SCAN CBC ####[place] [address] USATotal Iron Binding Qqcufkto654 ug/eGZiuxvq001-316Ilk [facility] Medical CenterComment on above:Performed By: #### BMP, CK, HS TROP, FE and TIBC, LILA, MG, SCAN CBC ####[place] [address] USATransferrin [Mass/Vol]291 mg/wQQveiii256-820Aqi [facility] Physician GroupComment on above:Performed By: #### BMP, CK, HS TROP, FE and TIBC, LILA, MG, SCAN CBC ####[place] [address] USALeukocytes [#/volume] corrected for nucleated erythrocytes in Blood by Automated counOrdered By: Abdullahi Canchola on 10-11-2024 WBC corrected for nucl RBC Auto (Bld) [#/Vol]Leukocytes [#/volume] corrected for nucleated erythrocytes in Blood by Automated coun4.1-10.5FOhioHealth Grant Medical CenterLymphocytes Auto (Bld) [#/Vol]Ordered By: Abdullahi Canchola on 01-53-5876Tmiktqqfqic (Bld) [#/Vol]Lymphocytes [#/volume] in Blood by Automated count1.00-4.8Galion HospitalLymphocytes/100 WBC Auto (Bld) Ordered By: Abdullahi Canchola on 20-95-4236Swhdifetsee/100 WBC (Bld)Lymphocytes/100 leukocytes in Blood by Automated count.Galion HospitalMCH Auto (RBC) [Entitic mass]Ordered By: Abdullahi Canchola on 52-32-2045QQQ (RBC) [Entitic mass]MCH [Entitic mass] by Automated jpzwiRsk95.5-35.2FOhioHealth Grant Medical CenterMCHC Auto (RBC) [Mass/Vol]Ordered By: Abdullahi Canchola on 61-54-2068NPIR (RBC) [Mass/Vol]MCHC [Mass/volume] by Automated count32.5-35.6 [facility]ion HospitalMCV Auto (RBC) [Entitic vol]Ordered By: Abdullahi Canchola on 29-48-5741SQY (RBC) [Entitic vol]MCV [Entitic volume] by Automated hnhuiNbr34.5-101Galion HospitalMagnesiumon 00-09-4131Lrpsdzifn [Mass/Vol]1.8 mg/dLLow1.9-2.7The [facility] Physician GroupComment on above: Performed By: #### BMP, CK, HS TROP, FE and TIBC, LILA, MG, SCAN CBC ####[facility] [id number] [facility] Magnesium [Mass/volume] in Serum or PlasmaOrdered By: Abdullahi Canchola on 35-41-1783Vtnrzcmve [Mass/Vol]Magnesium [Mass/volume] in Serum or PlasmaLow 1.9-2.7FOhioHealth Grant Medical CenterMicrocytes LM Ql (Bld)Ordered By: Abdullahi Canchola on 88-53-1762Kzcpiiuvat Ql (Bld)Microcytes [Presence] in Blood by Light microscopyGalion HospitalMonocytes Auto (Bld) [#/Vol] Ordered By: Abdullahi Canchola on 65-43-3348Pceftuldd (Bld) [#/Vol]Automated blood monocyte countHigh0.0-0.8Galion HospitalMonocytes/100 WBC Auto (Bld)Ordered By: Abdullahi Canchola on 17-70-3325Fkwnncqfj/100 WBC (Bld)Automated monocyte %.Galion HospitalNeutrophils Auto (Bld) [#/Vol] Ordered By: Abdullahi Canchola on 04-43-7402Otgtqohtluu (Bld) [#/Vol]Neutrophils [#/volume] in Blood by Automated count1.8-7.7FOhioHealth Grant Medical Center Neutrophils/100 WBC Auto (Bld)Ordered By: Abdullahi Canchola on 10-11-2024 Neutrophils/100 WBC (Bld)Automated neutrophil %.Galion HospitalNo Panel InformationOrdered By: Abdullahi Canchola on 67-10-9492Qhsfsxm Glucose CommentGlu2: cleaned [facility] HospitalGlu2: cleaned [facility] HospitalEstimated GFR (CKD-EPI)29.874 mL/Min [facility] HospitalPharmacy Creatinine Clearance (Chem35.93 [facility]29.874 mL/MinGalion Hospital 35.93Galion HospitalNucleated erythrocytes [Presence] in Blood by Automated countOrdered By: Abdullahi Canchola on 89-44-0642Kpraqvyda RBC Auto Ql (Bld)Nucleated erythrocytes [Presence] in Blood by Automated count0-0.5 [facility]ion HospitalOvalocytes [Presence] in Blood by Light microscopyOrdered By: Abdullahi Canchola on 46-35-5141Hvzrgpdwet LM Ql (Bld) Ovalocyte detectionGalion HospitalPlatelet adequacy [Presence] in Blood by Light microscopyOrdered By: Abdullahi Canchola on 52-87-3427Zrjoxxksv LM Ql (Bld)Platelet adequacy [Presence] in Blood by Light microscopyNormal Galion HospitalPlatelet mean volume Auto (Bld) [Entitic vol] Ordered By: Abdullahi Canchola on 90-24-9893Eqvottvo mean volume (Bld) [Entitic vol] Platelet mean volume [Entitic volume] in Blood by Automated count6.6-10.1 [facility] HospitalPlatelet morphology finding [Identifier] in BloodOrdered By: Abdullahi Canchola on 41-03-4406Inkhfxwv morphology finding Nom (Bld)Platelet morphology finding [Identifier] in BloodGalion HospitalPlatelets Auto (Bld) [#/Vol]Ordered By: Abdullahi Canchola on 10-11-2024 Platelets (Bld) [#/Vol]Platelets [#/volume] in Blood by Automated xougl081-340 Galion HospitalPlatelets Large [Presence] in Blood by Light microscopyOrdered By: Abdullahi Canchola on 57-83-2527Wyjyuovgb Large LM Ql (Bld) Platelets Large [Presence] in Blood by Light microscopyGalion HospitalPoikilocytosis [Presence] in Blood by Light microscopyOrdered By: Abdullahi Canchola on 00-91-6231Mfrajfgevzswzd LM Ql (Bld)Poikilocytosis [Presence] in Blood by Light microscopyGalion HospitalPolychromasia [Presence] in Blood by Light microscopyOrdered By: Abdullahi Canchola on 10-11-2024 Polychromasia LM Ql (Bld)Polychromasia [Presence] in Blood by Light microscopy Galion HospitalPotassium [Moles/volume] in Serum or Plasma Ordered By: Abdullahi Canchola on 62-00-3623Dsmhiownl [Moles/Vol]Potassium [Moles/volume] in Serum or Plasma3.5-5.1FOhioHealth Grant Medical CenterRBC Auto (Bld) [#/Vol]Ordered By: Abdullahi Canchola on 79-80-2251HPY (Bld) [#/Vol] Erythrocytes [#/volume] in Blood by Automated count3.90-5.60[facility] Medical Centercan and CBCon 49-70-7106Aspzntczhzza Ql (Bld)MarkedNoThe [facility] Hospital Physician GroupComment on above:Performed By: #### BMP, CK, HS TROP, FE and TIBC, LILA, MG, SCAN CBC ####[facility] [address] [place] [address] USABasophils (Bld) [#/Vol]0.1 10*3/uLNormal0.0-0.2The [facility] Physician GroupComment on above:Performed By: #### BMP, CK, HS TROP, FE and TIBC, LILA, MG, SCAN CBC ####[place] [address] USABasophils/100 WBC (Bld)1.3 %Normal.The [facility] Physician GroupComment on above:Performed By: #### BMP, CK, HS TROP, FE and TIBC, LILA, MG, SCAN CBC ####[place] [address] USAEosinophils (Bld) [#/Vol]0.3 10*3/uLNormal0.0-0.45 The [facility] Physician GroupComment on above:Performed By: #### BMP, CK, HS TROP, FE and TIBC, LILA, MG, SCAN CBC ####[place] [address] USAEosinophils/100 WBC (Bld)4.0 %Normal.The [facility] Physician GroupComment on above:Performed By: #### BMP, CK, HS TROP, FE and TIBC, LILA, MG, SCAN CBC ####[place] [address] USAErythrocyte distribution width (RBC) [Ratio]23.3 % High12.0-14.8The [facility] Physician GroupComment on above:Performed By: #### BMP, CK, HS TROP, FE and TIBC, LILA, MG, SCAN CBC ####[place] [address] USAHematocrit (Bld) [Volume fraction]38.9 %Tfexqz15.8-50.0The [facility] Physician GroupComment on above:Performed By: #### BMP, CK, HS TROP, FE and TIBC, LILA, MG, SCAN CBC ####[place] [address] USAHemoglobin (Bld) [Mass/Vol]13.1 g/dL Yrxyoh84.0-17.0The [facility] Physician GroupComment on above:Performed By: #### BMP, CK, HS TROP, FE and TIBC, LILA, MG, SCAN CBC ####[address] [address] USALarge PlateletsSlightNormalThe [facility] Hospital Physician GroupComment on above:Result Comment: PERFORMED BY:[address] [place], [place] [phone] MEDICAL DIRECTORMIKE CABAN M.D.Performed By: #### BMP, CK, HS TROP, FE and TIBC, LILA, MG, SCAN CBC ####[address] [address] USALymphocytes (Bld) [#/Vol]2.0 10*3/uLNormal1.00-4.8 The [facility] Physician GroupComment on above:Performed By: #### BMP, CK, HS TROP, FE and TIBC, LILA, MG, SCAN CBC ####[place] [id number] USALymphocytes/100 WBC (Bld)25.5 %Normal.The [facility] Physician GroupComment on above:Performed By: #### BMP, CK, HS TROP, FE and TIBC, LILA, MG, SCAN CBC ####[address] [address] [facility] (RBC) [Entitic mass]25.7 pgLow27.5-35.2The [facility] Physician GroupComment on above:Performed By: #### BMP, CK, HS TROP, FE and TIBC, LILA, MG, SCAN CBC ####[address] [address] [facility] [facility] (RBC) [Entitic vol]76.5 fLLow83.5-101The [facility] Physician GroupComment on above:Performed By: #### BMP, CK, HS TROP, FE and TIBC, LILA, MG, SCAN CBC ####[address] [address] USAMean Corpuscular HGB Conc33.6 g/hNDknlqz59.5-35.6The [facility] Physician GroupComment on above:Performed By: #### BMP, CK, HS TROP, FE and TIBC, LILA, MG, SCAN CBC ####[place] [address] USAMicrocytosisModerateNormalThe [facility] Hospital Physician GroupComment on above:Performed By: #### BMP, CK, HS TROP, FE and TIBC, LILA, MG, SCAN CBC ####[place] [address] USAMonocytes (Bld) [#/Vol]0.9 10*3/uLHigh0.0-0.8The [facility] Physician [facility] Comment on above:Performed By: #### BMP, CK, HS TROP, FE and TIBC, LILA, MG, SCAN CBC ####[place] [address] [place] Monocytes/100 WBC (Bld)10.9 %Normal.The [facility] Physician GroupComment on above:Performed By: #### BMP, CK, HS TROP, FE and TIBC, LILA, MG, SCAN CBC ####[place] [address] [place] Neutrophils (Bld) [#/Vol]4.6 10*3/uLNormal1.8-7.7The [facility] Physician [facility] Comment on above:Performed By: #### BMP, CK, HS TROP, FE and TIBC, LILA, MG, SCAN CBC ####[place] [address] [place] Neutrophils/100 WBC (Bld)58.3 %Normal.The [facility] Physician GroupComment on above:Performed By: #### BMP, CK, HS TROP, FE and TIBC, LILA, MG, SCAN CBC ####[place] [address] USANRBC% 0.1 /100{WBC}Normal0-0.5The [facility] Physician GroupComment on above:Performed By: #### BMP, CK, HS TROP, FE and TIBC, LILA, MG, SCAN CBC ####[place] [id number] USAOvalocytesSAtrium Health Physician GroupComment on above:Performed By: #### BMP, CK, HS TROP, FE and TIBC, LILA, MG, SCAN CBC ####[place] [address] USAPlatelet EstimateNormalNormCampbellton-Graceville Hospital Physician GroupComment on above:Performed By: #### BMP, CK, HS TROP, FE and TIBC, LILA, MG, SCAN CBC ####[place] [address] USAPlatelet mean volume (Bld) [Entitic vol]9.5 fLNormal 6.6-10.1The [facility] Physician GroupComment on above:Performed By: #### BMP, CK, HS TROP, FE and TIBC, LILA, MG, SCAN CBC ####[facility] [id number] [place] [address] USAPlatelets (Bld) [#/Vol]176 10*3/uL Pihppl857-713Wxv [facility] Physician [facility] HospitalComment on above:Performed By: #### BMP, CK, HS TROP, FE and TIBC, LILA, MG, SCAN CBC ####[place] [address] USAPoikilocytosisAnson Community Hospital Physician GroupComment on above:Performed By: #### BMP, CK, HS TROP, FE and TIBC, LILA, MG, SCAN CBC ####[place] [address] USAPolychromasiaSAtrium Health Physician GroupComment on above:Performed By: #### BMP, CK, HS TROP, FE and TIBC, LILA, MG, SCAN CBC ####[place] [address] USARBC (Bld) [#/Vol]5.09 10*6/uLNormal3.90-5.60The [facility] Physician Group Comment on above:Performed By: #### BMP, CK, HS TROP, FE and TIBC, LLIA, MG, SCAN CBC ####[facility] [address] [place] [address] [facility] WBC (Bld) [#/Vol]7.9 10*3/uLNormal4.1-10.5The [facility] Physician GroupComment on above:Performed By: #### BMP, CK, HS TROP, FE and TIBC, LILA, MG, SCAN CBC ####[facility] [address] [place] [address] USASerum or plasma anion gap determinationOrdered By: Abdullahi Canchola on 64-70-7659Kuzmv gap [Moles/Vol]Serum or plasma anion gap determinationHigh6.0-15.0[facility] Medical Centererum or plasma iron binding capacity measurement (mass/volume)Ordered By: Abdullahi Canchola on 31-68-8342Jwcx binding capacity [Mass/Vol]Iron binding capacity [Mass/volume] in Serum or Blyihj582-445TllkqccuvSouthern Ohio Medical Centererum or plasma iron saturation measurement (mass fraction)Ordered By: Abdullahi Canchola on 36-10-0895Fqyp saturation [Mass fraction] Iron saturation [Mass Fraction] in Serum or TgzlswJxf88-90SvxjmncphSouthern Ohio Medical Centerodium [Moles/volume] in Serum or PlasmaOrdered By: Abdullahi Canchola on 84-48-9706Rvdpjt [Moles/Vol]Sodium [Moles/volume] in Serum or Wwnzoz239-256 [facility] HospitalTransferrin [Mass/volume] in Serum or Plasma Ordered By: Abdullahi Canchola on 81-00-9879Kxfxmpikmue [Mass/Vol]Transferrin [Mass/volume] in Serum or Marnnu912-421BprqwfyctGalion HospitalTroponin I High Sensitivityon 26-66-6959Ybhilowz I High Dmmddnrnazi5Nprolp9-89Wbo [facility] Physician GroupComment on above:Result Comment: The Troponin units of report have been changed to meet the Chest Pain Accreditationrequirement, element EC5.M1l2. Troponin units are changed from pg/ml to ng/L. Also, the decimal is removed and results are in whole numbers.PERFORMED BY:[address] [place], [place] [phone] MEDICAL DIRECTORMOKAREN CABAN M.D.Performed By: #### BMP, CK, HS TROP, FE and TIBC, LILA, MG, SCAN CBC ####[facility] [place] [address] USATroponin I.cardiac [Mass/volume] in Serum or Plasma by Detection limit <= 0.01 ng/Ordered By: Abdullahi Canchola on 30-21-1407Jrmvglpt I.cardiac DL <= 0.01 ng/mL [Mass/Vol]Troponin I.cardiac [Mass/volume] in Serum or Plasma by Detection limit <= 0.01 ng/0-20[facility] Comment on above:The Troponin units of report have been changed to meet the Chest Pain Accreditation requirement, element EC5.M1l2. Troponin units are changed from pg/ml to ng/L. Also, the decimal is removed and results are in whole numbers.Urea nitrogen [Mass/volume] in Serum or PlasmaOrdered By: Abdullahi Canchola on 54-31-5213Npla nitrogen [Mass/Vol]Urea nitrogen [Mass/volume] in Serum or PlasmaHigh7-25Gal[facility] HospitalWBC Auto (Bld) [#/Vol]Ordered By: Abdullahi Canchola on 98-41-2726UAY (Bld) [#/Vol]Leukocytes [#/volume] in Blood by Automated count4.1-10.5FOhioHealth Grant Medical CenterAnisocytosis LM Ql (Bld)Ordered By: Jez Dominguez on 08-13-9321Ccebltcgbtrv Ql (Bld)Anisocytosis [Presence] in Blood by Light microscopyGalion HospitalB-Type Natriuretic Peptideon 87-10-6393Lrgpxpxtkcq peptide B (Bld) [Mass/Vol]17.0 pg/mL Normal5-100The [facility] Physician GroupComment on above:Result Comment: PERFORMED BY:[id number] [place], [place] [phone] MEDICAL DIRECTORMIKE CABAN M.D. Performed By: #### HS TROP, BNP, PT, BMP, SCAN CBC, CK ####[facility] [place] [address] USABasic Metabolic Panelon 44-56-0659Dshma gap [Moles/Vol]15.5 mmol/LHigh6.0-15.0The [facility] Physician GroupComment on above:Performed By: #### HS TROP, BNP, PT, BMP, SCAN CBC, CK ####[address] [address] USACalcium [Mass/Vol]9.7 mg/dLNormal8.6-10.3The [facility] Physician GroupComment on above: Performed By: #### HS TROP, BNP, PT, BMP, SCAN CBC, CK ####[place] [id number] USAChloride [Moles/Vol]98 mmol/L Qehwap01-692Gyf [facility] Physician GroupComment on above:Performed By: #### HS TROP, BNP, PT, BMP, SCAN CBC, CK ####[place] [address] USACO2 [Moles/Vol]25.6 mmol/PAbhprl35.0-31.0The [facility] Physician GroupComment on above:Performed By: #### HS TROP, BNP, PT, BMP, SCAN CBC, CK ####[place] [address] USACreatinine [Mass/Vol]2.51 mg/dLHigh0.70-1.30The [facility] Physician GroupComment on above:Performed By: #### HS TROP, BNP, PT, BMP, SCAN CBC, CK ####[place] [id number] [place] Creatinine Clr Calc Jajionbg14.78NormalThe [facility] Physician GroupComment on above:Result Comment: PERFORMED BY:[address] [place], [place] [phone] MEDICAL DIRECTORMIKE LIU M.D.Performed By: #### HS TROP, BNP, PT, BMP, SCAN CBC, CK ####[place] [id number] [place] Estimated GFR28.735 mL/MinNormalThe [facility] Physician [facility] HospitalComment on above: Performed By: #### HS TROP, BNP, PT, BMP, SCAN CBC, CK ####[address] [place] [id number] USAGlucose [Mass/Vol]278 mg/dLHigh 70-100The [facility] Physician GroupComment on above:Result Comment: Random Glucose Reference Range is dependent on time and content of last meal. Glucose of more than 200 mg/dL in a nonstressed, ambulatory subject supports the diagnosis of Diabetes Mellitus. ADA recommended reference rangePerformed By: #### HS TROP, BNP, PT, BMP, SCAN CBC, CK ####[address] [place] [address] USAPotassium [Moles/Vol]4.1 mmol/LNormal3.5-5.1The [facility] Physician [facility] HospitalComment on above:Performed By: #### HS TROP, BNP, PT, BMP, SCAN CBC, CK ####[place] [address] USASodium [Moles/Vol]135 mmol/BPvi708-100Goz [facility] Physician [facility] Comment on above:Performed By: #### HS TROP, BNP, PT, BMP, SCAN CBC, CK ####[place] [id number] USAUrea nitrogen [Mass/Vol]41 mg/dLHigh7-25The [facility] Physician GroupComment on above:Performed By: #### HS TROP, BNP, PT, BMP, SCAN CBC, CK ####[place] [id number] USABasophils Auto (Bld) [#/Vol]Ordered By: Jez Dominguez on 17-23-1936Pwpcaumky (Bld) [#/Vol]Automated basophil count0.0-0.2FOhioHealth Grant Medical CenterBasophils/100 WBC Auto (Bld)Ordered By: Jez Dominguez on 10-84-6851Syjpbefgm/100 WBC (Bld)Automated basophil %.Fire[facility] Regional Medical CenterCalcium [Mass/volume] in Serum or PlasmaOrdered By: Jez Dominguez on 85-79-0691Edeaita [Mass/Vol]Calcium [Mass/volume] in Serum or Plasma8.6-10.3FOhioHealth Grant Medical CenterCarbon dioxide, total [Moles/volume] in Serum or PlasmaOrdered By: Jez Dominguez on 36-69-6967CQ9 [Moles/Vol]Carbon dioxide, total [Moles/volume] in Serum or Plasma 21.0-31.0Galion HospitalChloride [Moles/volume] in Serum or PlasmaOrdered By: Jez Dominguez on 25-16-3841Lslaclqh [Moles/Vol]Chloride [Moles/volume] in Serum or Thgflq34-324FhukscjquGalion HospitalCreatine Kinaseon 03-48-1063OL [Catalytic activity/Vol]101 U/DBrjats33-000Gig [place] Physician GroupComment on above:Performed By: #### HS TROP, CK ####[facility] [address] [place] [address] USACK [Catalytic activity/Vol]126 U/CEwwxgf64-170Wxa [place] Physician [facility] Rehabilitation HospitalComment on above: Performed By: #### HS TROP, BNP, PT, BMP, SCAN CBC, CK ####[facility] [address] [place] [address] USACreatine kinase [Enzymatic activity/volume] in Serum or PlasmaOrdered By: Jez Dominguez on 48-25-1537KT [Catalytic activity/Vol]Creatine kinase [Enzymatic activity/volume] in Serum or Blkpyq63-317FqhfersxuGalion HospitalCreatinine [Mass/volume] in Serum or PlasmaOrdered By: Jez Dominguez on 45-96-9810Ryskfhguph [Mass/Vol]Creatinine [Mass/volume] in Serum or PlasmaHigh0.70-1.30[facility] ECG 12 lead ECGon 53-19-6242KAQ 12 lead ECGNoThe [facility] Physician Group ECG 12 lead ECGNoThe [facility] Hospital Physician GroupECG 12 lead ECGNoThe [facility] Hospital Physician GroupEosinophils Auto (Bld) [#/Vol]Ordered By: Jez Dominguez on 77-94-9368Dorxvgcftih (Bld) [#/Vol]Automated eosinophil count0.0-0.45 [facility] HospitalEosinophils/100 WBC Auto (Bld)Ordered By: Jez Dominguez on 51-65-2552Wdglvvgihkp/100 WBC (Bld)Automated eosinophil %. [facility]ion HospitalErythrocyte distribution width Auto (RBC) [Ratio]Ordered By: Jez Dominguez on 29-05-4878Bhlervvbeib distribution width (RBC) [Ratio]Erythrocyte distribution width [Ratio] by Automated countHigh 12.0-14.8Galion HospitalErythrocyte morphology finding [Identifier] in BloodOrdered By: Jez Dominguez on 29-99-7499EQE morphology finding Nom (Bld)RBC morphologyGalion HospitalGlucose Poct Glucometerson 04-82-6162Mmuxlnd [Mass/Vol]204 mg/dLNoThe [facility]er Banks Hospital Physician GroupComment on above:Result Comment: Random Glucose Reference Range is dependent on time and content of last meal. Glucose of more than 200 mg/dL in a nonstressed, ambulatory subject supports the diagnosis of Diabetes Evelyn litus.PERFORMED BY:[facility] [place], [place] [phone] MEDICAL DIRECTORMIKE CABAN M.D. Performed By: #### GLULS ####Point of Care testing,Glucose [Mass/volume] in Serum or PlasmaOrdered By: Jez Dominguez on 92-52-2753Rbaqbph [Mass/Vol]Glucose [Mass/volume] in Serum or QfluzpXxwf17-949AlurokovcGalion Hospital Comment on above:ADA recommended reference rangeRandom Glucose Reference Range is dependent on time and content of last meal. Glucose of more than 200 mg/dL in a nonstressed, ambulatory subject supports the diagnosisof Diabetes Mellitus. Hematocrit Auto (Bld) [Volume fraction]Ordered By: Jez Dominguez on 10-10-2024 Hematocrit (Bld) [Volume fraction]Hematocrit [Volume Fraction] of Blood by Automated count38.8-50.0Galion HospitalHemoglobin [Mass/volume] in BloodOrdered By: Jez Dominguez on 77-91-3288Cmbsaccwhe (Bld) [Mass/Vol]Hemoglobin [Mass/volume] in Blood13.0-17.0Galion HospitalINR in Platelet poor plasma by Coagulation assayOrdered By: Jez Dominguez on 52-26-6259AJL Coag (PPP) [Relative time]INR in Platelet poor plasma by Coagulation assayGalion HospitalComment on above:INR Therapeutic Range A) Pre- [...] by Automated counOrdered By: Jez Dominguez on 42-83-0463CVV corrected for nucl RBC Auto (Bld) [#/Vol]Leukocytes [#/volume] corrected for nucleated erythrocytes in Blood by Automated coun4.1-10.5FOhioHealth Grant Medical CenterLymphocytes Auto (Bld) [#/Vol]Ordered By: Jez Dominguez on 91-38-4363Gjygxlgdedt (Bld) [#/Vol] Lymphocytes [#/volume] in Blood by Automated count1.00-4.8Galion HospitalLymphocytes/100 WBC Auto (Bld)Ordered By: Jez Dominguez on 02-09-4668Bckayzmanjd/100 WBC (Bld)Lymphocytes/100 leukocytes in Blood by Automated count.The [facility] HospitalH Auto (RBC) [Entitic mass] Ordered By: Jez Dominguez on 56-99-9030BFZ (RBC) [Entitic mass]MCH [Entitic mass] by Automated rmmeeDys57.5-35.2FOhioHealth Grant Medical CenterMCHC Auto (RBC) [Mass/Vol]Ordered By: Jez Dominguez on 81-11-2878JVLD (RBC) [Mass/Vol]MCHC [Mass/volume] by Automated count32.5-35.6FWright-Patterson Medical CenterV Auto (RBC) [Entitic vol]Ordered By: Jez Dominguez on 84-67-5657ZCX (RBC) [Entitic vol]MCV [Entitic volume] by Automated jkcphQnn60.5-101Firelands Regional Medical CenterMicrocytes LM Ql (Bld)Ordered By: Jez Dominguez on 10-10-2024 Microcytes Ql (Bld)Microcytes [Presence] in Blood by Light microscopyGalion HospitalMonocyte distribution width [Entitic volume] in Blood by AutomatedOrdered By: Jez Dominguez on 84-79-1738Lvulcbbb distribution width Auto (Bld) [Entitic vol]Monocyte distribution width [Entitic volume] in Blood by Automated0.00-20.00Galion HospitalMonocytes Auto (Bld) [#/Vol] Ordered By: Jez Dominguez on 78-16-5391Ghafvhyit (Bld) [#/Vol]Automated blood monocyte count0.0-0.8Gal[facility] HospitalMonocytes/100 WBC Auto (Bld)Ordered By: Jez Dominguez on 04-08-1778Uxmxenrvj/100 WBC (Bld)Automated monocyte %.[facility]ion HospitalNatriuretic peptide B [Mass/Vol] Ordered By: Jez Dominguez on 43-63-7965Bnevgjnstdo peptide B (Bld) [Mass/Vol]BNP ser/plas5-100Galion HospitalNeutrophils Auto (Bld) [#/Vol] Ordered By: Jez Dominguez on 65-74-5971Iuyygcgmsir (Bld) [#/Vol]Neutrophils [#/volume] in Blood by Automated count1.8-7.7FOhioHealth Grant Medical Center Neutrophils/100 WBC Auto (Bld)Ordered By: Jez Dominguez on 10-10-2024 Neutrophils/100 WBC (Bld)Automated neutrophil %.Galion HospitalNo Panel InformationOrdered By: Jez Dominguez on 57-23-7945Xlcbymkuy GFR (CKD-EPI)28.735 mL/MinGalion HospitalPharmacy Creatinine Clearance (Chem34.78Galion HospitalNucleated erythrocytes [Presence] in Blood by Automated countOrdered By: Jez Dominguez on 10-10-2024 Nucleated RBC Auto Ql (Bld)Nucleated erythrocytes [Presence] in Blood by Automated count0-0.5FOhioHealth Grant Medical CenterPlatelet adequacy [Presence] in Blood by Light microscopyOrdered By: Jez Dominguez on 10-10-2024 Platelets LM Ql (Bld)Platelet adequacy [Presence] in Blood by Light microscopy NormalGalion HospitalPlatelet mean volume Auto (Bld) [Entitic vol]Ordered By: Jez Dominguez on 42-44-8852Jexfesff mean volume (Bld) [Entitic vol]Platelet mean volume [Entitic volume] in Blood by Automated count6.6-10.1 [facility] HospitalPlatelet morphology finding [Identifier] in BloodOrdered By: Jez Dominguez on 50-64-8134Rtffqesu morphology finding Nom (Bld) Platelet morphology finding [Identifier] in BloodNormalGalion HospitalPlatelets Auto (Bld) [#/Vol]Ordered By: Jez Dominguez on 10-10-2024 Platelets (Bld) [#/Vol]Platelets [#/volume] in Blood by Automated koepb854-748 [facility] HospitalPoikilocytosis [Presence] in Blood by Light microscopyOrdered By: Jez Dominguez on 39-07-2881Tnuuelgjbhuxgm LM Ql (Bld) Poikilocytosis [Presence] in Blood by Light microscopyGalion HospitalPolychromasia [Presence] in Blood by Light microscopyOrdered By: Jez Dominguez on 67-47-0722Etjjmcaufukad LM Ql (Bld)Polychromasia [Presence] in Blood by Light microscopyGalion HospitalPotassium [Moles/volume] in Serum or PlasmaOrdered By: Jez Dominguez on 09-72-6801Rawiqxllx [Moles/Vol] Potassium [Moles/volume] in Serum or Plasma3.5-5.1FOhioHealth Grant Medical CenterProthrombin Time INRon 27-18-0495HSU Coag (PPP) [Relative time]1.0 {INR} NormalThe [facility] Physician GroupComment on above:Result Comment: INR [...] with mechanical heart valves: 3 - 4.5PERFORMED BY:[facility]DRA [phone] MEDICAL DIRECTORMIKE CABAN M.D. Performed By: #### HS TROP, BNP, PT, BMP, SCAN CBC, CK ####[address] [place] [address] USAPT Coag (PPP) [Time]11.4 s Normal9.0-12.9[facility] Physician [facility] Rehabilitation HospitalComment on above:Result Comment: A hematocrit value greater than 55% may lead to inaccurate results in coagulation testing. Patients having hematocrit values >55% require a special collection tube for coagulation studies. Please contact the laboratory at [phone] for redraw instructions.Performed By: #### HS TROP, BNP, PT, BMP, SCAN CBC, CK ####[address] [place] [address] [place] Prothrombin time (PT)Ordered By: Jez Dominguez on 90-99-8897TY Coag (PPP) [Time] Prothrombin time (PT)9.0-12.9Galion HospitalComment on above:A hematocrit value greater than 55% may lead to inaccurate results in coagulation testing. Patientshaving hematocrit values >55% require a special collection tube for coagulation studies. Please contact the laboratory at [phone] for redraw instructions.RBC Auto (Bld) [#/Vol]Ordered By: Jez Dominguez on 10-10-2024 RBC (Bld) [#/Vol]Erythrocytes [#/volume] in Blood by Automated countHigh 3.90-5.60[facility] Medical Centercan and CBCon 29-50-5336Pxzkpbbokizl Ql (Bld)MarkedNoUniversity Hospitals TriPoint Medical CenterComment on above:Performed By: #### HS TROP, BNP, PT, BMP, SCAN CBC, CK ####[address] [address] USABasophils (Bld) [#/Vol]0.1 10*3/uLNormal0.0-0.2 [facility] Physician [facility] HospitalComment on above:Performed By: #### HS TROP, BNP, PT, BMP, SCAN CBC, CK ####[address]Basophils/100 WBC (Bld)1.3 %Normal.The [facility] Physician GroupComment on above:Performed By: #### HS TROP, BNP, PT, BMP, SCAN CBC, CK ####[address] Eosinophils (Bld) [#/Vol]0.3 10*3/uLNormal0.0-0.45[facility] Comment on above:Performed By: #### HS TROP, BNP, PT, BMP, SCAN CBC, CK ####[address] Eosinophils/100 WBC (Bld)4.0 %Normal.The [facility] Physician GroupComment on above:Performed By: #### HS TROP, BNP, PT, BMP, SCAN CBC, CK ####[address] StreetErythrocyte distribution width (RBC) [Ratio]23.4 %High12.0-14.8[facility] Physician [facility] Comment on above:Performed By: #### HS TROP, BNP, PT, BMP, SCAN CBC, CK ####[address] Hematocrit (Bld) [Volume fraction]42.4 %Smxrjg24.8-50.0The [facility] Physician GroupComment on above:Performed By: #### HS TROP, BNP, PT, BMP, SCAN CBC, CK ####[address] Hemoglobin (Bld) [Mass/Vol]14.4 g/aWPlavop43.0-17.0[facility] Comment on above:Performed By: #### HS TROP, BNP, PT, BMP, SCAN CBC, CK ####[address] Lymphocytes (Bld) [#/Vol]2.0 10*3/uLNormal1.00-4.8[facility] Comment on above:Performed By: #### HS TROP, BNP, PT, BMP, SCAN CBC, CK ####[id number] [place] Lymphocytes/100 WBC (Bld)23.4 %Normal.The [facility] Physician GroupComment on above:Performed By: #### HS TROP, BNP, PT, BMP, SCAN CBC, CK ####[id number] [facility] (RBC) [Entitic mass]25.6 pgLow27.5-35.2The [facility] Physician GroupComment on above:Performed By: #### HS TROP, BNP, PT, BMP, SCAN CBC, CK ####[address] StreetV (RBC) [Entitic vol]75.5 fLLow 83.5-101The [facility] Physician GroupComment on above:Performed By: #### HS TROP, BNP, PT, BMP, SCAN CBC, CK ####[id number] USAMean Corpuscular HGB Conc33.9 g/qKWhybma54.5-35.6The [facility] Physician GroupComment on above:Performed By: #### HS TROP, BNP, PT, BMP, SCAN CBC, CK ####[phone] USAMicrocytosisMarkedNormalThe [facility] Hospital Physician GroupComment on above: Performed By: #### HS TROP, BNP, PT, BMP, SCAN CBC, CK ####[phone] USAMonocytes (Bld) [#/Vol]0.8 10*3/uLNormal0.0-0.8The [facility] Physician GroupComment on above:Performed By: #### HS TROP, BNP, PT, BMP, SCAN CBC, CK ####[id number] USAMonocytes/100 WBC (Bld)16.66 %Normal0.00-20.00 The [facility] Physician GroupComment on above:Performed By: #### HS TROP, BNP, PT, BMP, SCAN CBC, CK ####[place] [address] USAMonocytes/100 WBC (Bld)9.5 %Normal.The [facility] Physician GroupComment on above:Performed By: #### HS TROP, BNP, PT, BMP, SCAN CBC, CK ####[address] Neutrophils (Bld) [#/Vol]5.3 10*3/uLNormal1.8-7.7[facility] Comment on above:Performed By: #### HS TROP, BNP, PT, BMP, SCAN CBC, CK ####[address] Neutrophils/100 WBC (Bld)61.8 %Normal.The [facility] Physician GroupComment on above:Performed By: #### HS TROP, BNP, PT, BMP, SCAN CBC, CK ####[place] [address] USANRBC%0.2 /100{WBC} Normal0-0.5The [facility] Physician GroupComment on above:Performed By: #### HS TROP, BNP, PT, BMP, SCAN CBC, CK ####[place] [address] USAPlatelet EstimateNormalNormalNormalThe [facility] Physician GroupComment on above:Performed By: #### HS TROP, BNP, PT, BMP, SCAN CBC, CK ####[phone] [facility] Platelet mean volume (Bld) [Entitic vol]9.8 fLNormal6.6-10.1The [facility] Physician GroupComment on above:Performed By: #### HS TROP, BNP, PT, BMP, SCAN CBC, CK ####[address] Platelet MorphologyNormalNormalAdventHealth Palm Coast Parkway Physician GroupComment on above:Result Comment: PERFORMED BY:[address] [place], [place] [phone] MEDICAL DIRECTORMIKE LIU M.D.Performed By: #### HS TROP, BNP, PT, BMP, SCAN CBC, CK ####[address] [address] [facility] Platelets (Bld) [#/Vol]203 10*3/rHYiazuf256-674Tpn [facility] Comment on above:Performed By: #### HS TROP, BNP, PT, BMP, SCAN CBC, CK ####[address] [address] [facility] PoikilocytosisSAtrium Health Physician GroupComment on above: Performed By: #### HS TROP, BNP, PT, BMP, SCAN CBC, CK ####[address] [address] [facility] CENTERPolychromasiaSAtrium Health Physician GroupComment on above:Performed By: #### HS TROP, BNP, PT, BMP, SCAN CBC, CK ####[address] [address] USARBC (Bld) [#/Vol]5.62 10*6/uLHigh3.90-5.60The [facility] Physician GroupComment on above:Performed By: #### HS TROP, BNP, PT, BMP, SCAN CBC, CK ####[address] [address] USAWBC (Bld) [#/Vol]8.7 10*3/uLNormal4.1-10.5The [facility] Physician GroupComment on above:Performed By: #### HS TROP, BNP, PT, BMP, SCAN CBC, CK ####[address] [address] USASerum or plasma anion gap determinationOrdered By: Jez Dominguez on 38-64-6015Anqlk gap [Moles/Vol] Serum or plasma anion gap determinationHigh6.0-15.0[facility] Centerodium [Moles/volume] in Serum or PlasmaOrdered By: Jez Dominguez on 84-41-2325Qsdcgc [Moles/Vol]Sodium [Moles/volume] in Serum or KpdtooCbo874-032 [facility] HospitalTroponin I High Sensitivityon 10-10-2024 Troponin I High Foswmllfmha7Ylshrk4-63Ngp [facility] Physician GroupComment on above:Result Comment: The Troponin units of report have been changed to meet the Chest Pain Accreditationrequirement, element EC5.M1l2. Troponin units are changed from pg/ml to ng/L. Also, the decimal is removed and results are in whole numbers.PERFORMED BY:[address]Dar[address] MaryCHAL[place], [place] [phone] MEDICAL DIRECTORMIKE LEES ALEXA VirkPerformed By: #### HS TROP, CK ####[address] [address] USATroponin I High Ciojbqrtvnh7Pctbpu5-40 The [facility] Physician GroupComment on above:Order Comment: 4P/27Result Comment: The Troponin units of report have been changed to meet the Chest Pain Accreditationrequirement, element EC5.M1l2. Troponin units are changed from pg/ml to ng/L. Also, the decimal is removed and results are in whole numbers.PERFORMED BY:[address] [place]aryH[place], [place] [phone] MEDICAL DIRECTORMIKE LEESALEXA Virk Performed By: #### HS TROP ####[address] [address] USATroponin I High Pojucfhfhcd2Hoaito5-47[facility] Physician GroupComment on above:Result Comment: The Troponin units of report have been changed to meet the Chest Pain Accreditationrequirement, element EC5.M1l2. Troponin units are changed from pg/ml to ng/L. Also, the decimal is r emoved and results are in whole numbers.PERFORMED BY:[facility] [place], [place] [phone] MEDICAL DIRECTORMIKE CABAN M.D.Performed By: #### HS TROP, BNP, PT, BMP, SCAN CBC, CK ####[facility] [place] [address] USATroponin I.cardiac [Mass/volume] in Serum or Plasma by Detection limit <= 0.01 ng/Ordered By: Jez Dominguez on 04-67-3344Jjgcmpxa I.cardiac DL <= 0.01 ng/mL [Mass/Vol]Troponin I.cardiac [Mass/volume] in Serum or Plasma by Detection limit <= 0.01 ng/0-20[facility] HospitalComment on above:The Troponin units of report have been changed to meet the Chest Pain Accreditation requirement, element EC5.M1l2. Troponin units are changed from pg/ml to ng/L. Also, the decimal is removed and results are in whole numbers.Urea nitrogen [Mass/volume] in Serum or PlasmaOrdered By: Jez Dominguez on 07-01-0253Kylo nitrogen [Mass/Vol]Urea nitrogen [Mass/volume] in Serum or PlasmaHigh7-25 [facility] HospitalWBC Auto (Bld) [#/Vol]Ordered By: Jez Dominguez on 83-61-3531FTF (Bld) [#/Vol]Leukocytes [#/volume] in Blood by Automated count 4.1-10.5FOhioHealth Grant Medical CenterX-ray reportOrdered By: Олег Oscar on 05-14-6241Hvlrt report[address] [address] XRay Report Signed Patient: Myra Pickard SR MR#: [id number] : 1965 Acct:[id number] Age/Sex: 59 / M ADM Date: 5 [...] MD 10/10/24 1509 Signed By: 10/10/24 151 [facility] Work Phone: xr chest 2V*on 59-65-2613QN chest 2V*NormalThe [facility] Physician GroupAmbulatory Visit Summaryon 63-71-7262Ngnecbrova Visit SummaryAmbulatory Visit Summary MYRA PICKARD SR [...] Yeyo ROWE MD Where: [facility] [address] [address]- You Need to Schedule the Following Appointments Follow Up with Yeyo ROWE MD, URL When: Where: [address] [place] [address]- Medications What How Much When Instructions Unchanged tamsulosin (tamsulosin 0.4 mg Cap) 1 Capsules By Mouth 2 times a day Pickup at [facility]/pharmacy #[id number] Unchanged albuterol (ProAir HFA) Inhalation Every 6 [...] Transdermal Every day Cont (more content not included)...[facility] Ambulatory Visit SummaryAmbulatory Visit Summary MYRA PICKARD SR :1965 Visit Date:09/27/2024 Ambulatory Visit Instructions Your Diagnosis Orchitis BPH with obstruction/lower urinary tract symptoms Incomplete bladder emptying Neurogenic bladder Antiplatelet or antithrombotic long-term use Your Care Team Attending Physician - Yeyo ROWE MD Primary Care Physician - TERESA LYNHC DO This Is Your Medications List tamsulosin [...] MARYBEL VANG PA-C Where: [facility] [address] [place] [address]- You Need to Schedule the Following Appointments Follow Up with SOLEDAD HERRERA, ROSALIA Garcia When: Where: [address] [place] [address]- Medications What How Much When Instructions Unchanged [...] Contact prescribing physician if (more content not included)...[facility] HospitalUrology Office/Clinic Noteon 36-23-4912Vagfrbr Office/Clinic NoteUrology Office/Clinic Note Chief Complaint f/u [...] weeks in November 2022. Pt presented to [facility] ER 07/24/24 with sudden onset scrotal/groin [...] 5. Antiplatelet or antithrombotic long-term use (Z79.02: snf (current) use of antithrombotics/antiplatelets) On Plavix. Hx of [place]. Elevated risk for periop complications in the future. Follow-up With When Contact Information SOLEDAD HERRERA, Yeyo Blum, URL [address] [place] [address]- Additional Instructions: 4 mos w/ PVR Patient [...] COPD type A Fibromyalgi (more content not included)...[facility] Comment on above:Result Comment: Electronically Signed By: Yeyo ROWE MD\.br\Date and Time Signed: 09/27/24 12:03 EDT\.br\Electronically Co-Signed By: Mattie Foster\.br\Date and Time Co-Signed: 09/28/2511:00 CHACzX0s HPLC (Bld) [Mass fraction]on 47-03-5274CpM0a (Bld) [Mass fraction]Hemoglobin A1c/Hemoglobin.total in Blood by HPLCHolzer [facility] Alanine aminotransferase [Enzymatic activity/volume] in Serum or PlasmaOrdered By: Kevon Viera on 40-58-4743OEG [Catalytic activity/Vol]Alanine aminotransferase [Enzymatic activity/volume] in Serum or PlasmaGalion HospitalAlbumin [Mass/volume] in Serum or Plasma by Bromocresol green (BCG) dye binding methoOrdered By: Kevon Viera on 18-17-1752Oqjzzee BCG dye [Mass/Vol]Albumin [Mass/volume] in Serum or Plasma by Bromocresol green (BCG) dye binding methoLow3.5-5.7FOhioHealth Grant Medical CenterAlkaline phosphatase [Enzymatic activity/volume] in Serum or PlasmaOrdered By: Obshelly Haydenomar on 57-52-3970HDU [Catalytic activity/Vol]Alkaline phosphatase [Enzymatic activity/volume] in Serum or Ocnufo19-037DdhzpzjofGalion Hospital Aspartate aminotransferase [Enzymatic activity/volume] in Serum or PlasmaOrdered By: Obaydamaira Daromar on 90-36-7372OZO [Catalytic activity/Vol]Aspartate aminotransferase [Enzymatic activity/volume] in Serum or ZakmgjFzt96-51FhckymiahGalion HospitalBilirubin.total [Mass/volume] in Serum or PlasmaOrdered By: Objosedamaira Haydenomar on 66-23-9079Jdnwnjimm [Mass/Vol]Bilirubin.total [Mass/volume] in Serum or Plasma0.3-1.0[facility] HospitalCalcium [Mass/volume] in Serum or PlasmaOrdered By: Objosedah Daromar on 03-02-7896Euqbwzj [Mass/Vol]Calcium [Mass/volume] in Serum or PlasmaLow8.6-10.3FOhioHealth Grant Medical CenterCarbon dioxide, total [Moles/volume] in Serum or PlasmaOrdered By: Objosedamaira Daromar on 97-64-1035GO0 [Moles/Vol]Carbon dioxide, total [Moles/volume] in Serum or Dtjdjm80.0-31.0[facility] Chloride [Moles/volume] in Serum or PlasmaOrdered By: Objosedamaira Haydenomar on 91-14-0856Xlqdrjpm [Moles/Vol]Chloride [Moles/volume] in Serum or PlasmaHigh 98-107[facility] HospitalComprehensive Metabolic Panelon 14-90-7061Kemaems [Mass/Vol]3.4 g/dLLow3.5-5.7[facility] Comment on above:Performed By: #### CBCNO, CMP ####[facility] [address] [place], [place] [address]XFQHcyhzws/Globulin [Mass ratio]1.4 {ratio}NormalThe [facility] Physician GroupComment on above:Performed By: #### BENIGNO, CMP ####[facility]zformerly [facility] [place] [address] USAALP [Catalytic activity/Vol]93 U/WVaslqw52-453Khd [facility] Comment on above:Performed By: #### BENIGNO, CMP ####[facility] [place] [address]QSMMXI [Catalytic activity/Vol]9 U/LNormal 7-52The [facility] Physician GroupComment on above:Performed By: #### BENIGNO, CMP ####[facility] Briceformerly [facility] [place] [address]RPNYgtsz gap [Moles/Vol]10.7 mmol/LNormal6.0-15.0The [facility] Physician GroupComment on above:Performed By: #### BENIGNO, CMP ####[facility] [place] [address]iceformerly [facility] [place], [place] [address]LENTIM [Catalytic activity/Vol]12 U/TOfp40-64Qyu [facility] Physician GroupComment on above:Performed By: #### BENIGNO, CMP ####[facility] [place] Briceformerly [facility] [place], [place] [address]XEP Bilirubin [Mass/Vol]0.3 mg/dLNormal0.3-1.0The [facility] Physician GroupComment on above:Performed By: #### BENIGNO, CMP ####[facility] [place] Briceformerly [facility] [place], [place] [address]DCIGllozqi [Mass/Vol]7.5 mg/dLLow8.6-10.3The [facility] Physician GroupComment on above:Performed By: #### BENIGNO, CMP ####[facility] [place] Briceformerly [facility] [place], [place] [address]BBQYrfktliw [Moles/Vol]111 mmol/LGhlw38-926Qzb [facility] Physician GroupComment on above: Performed By: #### BENIGNO, CMP ####[facility] Briceformerly [facility] [place] [address]EFOGF5 [Moles/Vol]21.5 mmol/MVycncs25.0-31.0The [facility] Physician GroupComment on above:Performed By: #### BENIGNO, CMP ####[facility] [place], [place] [address]KMY Creatinine [Mass/Vol]1.59 mg/dLHigh0.70-1.30The [facility] Physician GroupComment on above:Performed By: #### BENIGNO, CMP ####[facility] [place], [place] [address]ZBKTgswmvolwe Clr Calc Cxynsowu61.91NormHCA Florida Bayonet Point Hospital Physician GroupComment on above:Result Comment: PERFORMED BY:[address] [place], [place] [phone] MEDICAL DIRECTORMIKE CABAN M.D.Performed By: #### BENIGNO, CMP ####[address] [address]QNM Estimated GFR49.698 mL/MinNoThe [facility]er [facility] Hospital Physician [facility] Rehabilitation HospitalComment on above: Performed By: #### BENIGNO, CMP ####[address] [address]JJHCylajitu (S) [Mass/Vol]2.4 g/dLAdventHealth Palm Coast Parkway Physician [facility] Rehabilitation HospitalComment on above:Performed By: #### BENIGNO, CMP ####[address] [address]USXXbizkin [Mass/Vol]140 mg/wKDfdb28-086Pkd [facility] Physician GroupComment on above:Result Comment: Random Glucose Reference Range is dependent on time and content of last meal. Glucose of more than 200 mg/dL in a nonstressed, ambulatory subject supports the diagnosis of Diabetes Mellitus. ADA recommended reference rangePerformed By: #### BENIGNO, CMP ####[facility] [place], [place] [address]OSLYnbmdbjcj [Moles/Vol]4.2 mmol/LNormal3.5-5.1The [facility] Physician GroupComment on above:Performed By: #### BENIGNO, CMP ####[address] [place], [place] [address]AWOEutywfd [Mass/Vol]5.8 g/dLLow 6.4-8.9The [facility] Physician GroupComment on above:Performed By: #### CBCNO, CMP ####[facility] [address] [place], [place] [address]KGG Sodium [Moles/Vol]139 mmol/RJgmkft036-259Czd [facility] Physician GroupComment on above:Performed By: #### CBCNO, CMP ####[facility] [address] [place], [place] [address]VOIEnbf nitrogen [Mass/Vol]13 mg/dLNormal7-25The [facility] Physician GroupComment on above:Performed By: #### CBCNO, CMP ####[facility] [address] [place], [place] [address]FHK Creatinine [Mass/volume] in Serum or PlasmaOrdered By: Kevon Viera on 58-24-2366Jpmiccntql [Mass/Vol]Creatinine [Mass/volume] in Serum or PlasmaHigh 0.70-1.30[facility] HospitalErythrocyte distribution width Auto (RBC) [Ratio]Ordered By: Kevon Viera on 46-28-2891Etoxdfwopzv distribution width (RBC) [Ratio]Erythrocyte distribution width [Ratio] by Automated countHigh 12.0-14.8[facility] HospitalGlobulin Calc (S) [Mass/Vol]Ordered By: Kevon Viera on 97-96-2064Tzrudids (S) [Mass/Vol]Serum globulin measurement by calculation (mass/volume)[facility] HospitalGlucose Glucometer (BldC) [Mass/Vol]Ordered By: Kevon Viera on 05-58-4942Dvcofhv [Mass/Vol]Capillary blood glucose measurement by glucometer (mass/volume) [facility] HospitalComment on above:Random Glucose Reference Range is dependent on time and content of last meal. Glucose of more than 200 mg/dL in a nonstressed, ambulatory subject supports the diagnosis of Diabetes Mellitus.Glucose Poct Glucometerson 79-34-0060Hjhybvi [Mass/Vol]150 mg/dLNormal The [facility] Physician GroupComment on above:Result Comment: Random Glucose Reference Range is dependent on time and content of last meal. Glucose of more than 200 mg/dL in a nonstressed, ambulatory subject supports the diagnosis of Diabetes Mellitus.PERFORMED BY:[address] [place]UKULDarrianMaryCH[place], [place] [phone] MEDICAL DIRECTORMIKE LIU M.D.Performed By: #### GLULS ####Point of Care testing,Glucose [Mass/Vol]173 mg/dLNormalThEastern Idaho Regional Medical Center Physician GroupComment on above:Result Comment: Random Glucose Reference Range is dependent on time and content of last meal. Glucose of more than 200 mg/dL in a nonstressed, ambulatory subject supports the diagnosis of Diabetes Mellitus.PERFORMED BY:[address] [place], [place] [phone] MEDICAL DIRECTORMIKE CABAN M.D.Performed By: #### GLULS ####Point of Care testing,Glucose [Mass/volume] in Serum or PlasmaOrdered By: Obshelly Bazzir on 84-70-6738Qnxtnhy [Mass/Vol]Glucose [Mass/volume] in Serum or FunjqbTcpy50-819 [facility] HospitalComment on above:ADA recommended reference rangeRandom Glucose Reference Range is dependent on time and content of last meal. Glucose of more than 200 mg/dL in a nonstressed, ambulatory subject supports the diagnosisof Diabetes Mellitus.Hematocrit Auto (Bld) [Volume fraction]Ordered By: Objosedamaira Haydenomar on 09-10-8703Npwgcduzbc (Bld) [Volume fraction]Hematocrit [Volume Fraction] of Blood by Automated miwybMfb69.8-50.0 [facility] HospitalHemoglobin [Mass/volume] in BloodOrdered By: Objosedamaira Haydenomar on 30-06-0837Yhvmiuppvc (Bld) [Mass/Vol]Hemoglobin [Mass/volume] in PissrWtr47.0-17.0[facility] HospitalHemogram CBC Without Diff on 60-63-7064Gngbjxnmppu distribution width (RBC) [Ratio]19.9 %High12.0-14.8The [facility] Physician GroupComment on above:Performed By: #### CBCNO, CMP ####[facility] [place] [address]GJF Hematocrit (Bld) [Volume fraction]30.0 %Low38.8-50.0The [facility] Physician GroupComment on above:Performed By: #### BENIGNO, CMP ####[address] [address]TPPZjlncdgjji (Bld) [Mass/Vol]9.5 g/dLLow13.0-17.0The [facility] Physician GroupComment on above:Performed By: #### BENIGNO, CMP ####[address] [address]HQQOZT (RBC) [Entitic mass]21.5 pgLow27.5-35.2[facility] Comment on above:Performed By: #### BENIGNO, CMP ####[address] [address]TCUVTP (RBC) [Entitic vol]67.8 fLLow 83.5-101The [facility] Physician GroupComment on above:Performed By: #### BENIGNO, CMP ####[address] [address]IZVFeed Corpuscular HGB Conc31.7 g/dLLow32.5-35.6The [facility] Physician GroupComment on above:Performed By: #### BENIGNO, CMP ####[address] [address]GZMGunxvhwu mean volume (Bld) [Entitic vol]10.1 fLNormal 6.6-10.1The [facility] Physician GroupComment on above:Result Comment: PERFORMED BY:[address] [place]ULDarrianMaryCHAL[place], [place] [phone] MEDICAL DIRECTORMIKE CABAN M.D.Performed By: #### BENIGNO, CMP ####[address] [address] USAPlatelets (Bld) [#/Vol]153 10*3/dNEcdotu626-768Nfq [facility] Comment on above:Performed By: #### BENIGNO, CMP ####[address], [place] [address]YVPZOA (Bld) [#/Vol]4.42 10*6/uLNormal 3.90-5.60The [facility] Physician GroupComment on above:Performed By: #### CBCNO, CMP ####[facility] [address] [place], [place] [address]EHQXWC (Bld) [#/Vol]8.0 10*3/uLNormal4.1-10.5The [facility] Physician GroupComment on above:Performed By: #### CBCNO, CMP ####[facility] [address] [place], [place] [address]TLQNrzwyqczzs [#/volume] corrected for nucleated erythrocytes in Blood by Automated counOrdered By: Kevon Viera on 08-13-2024 WBC corrected for nucl RBC Auto (Bld) [#/Vol]Leukocytes [#/volume] corrected for nucleated erythrocytes in Blood by Automated coun4.1-10.5FNationwide Children's Hospital Auto (RBC) [Entitic mass]Ordered By: Kevon Haydenomar on 99-69-0936TIJ (RBC) [Entitic mass]MCH [Entitic mass] by Automated countLow 27.5-35.2FWright-Patterson Medical CenterHC Auto (RBC) [Mass/Vol]Ordered By: Kevon Haydenomar on 31-86-7963SOGO (RBC) [Mass/Vol]MCHC [Mass/volume] by Automated dmwgwLxm85.5-35.6FWright-Patterson Medical CenterV Auto (RBC) [Entitic vol]Ordered By: Kevon Haydenomar on 32-64-0376GXR (RBC) [Entitic vol]MCV [Entitic volume] by Automated hhppbWln13.5-101[facility] No Panel InformationOrdered By: Kevon Viera on 26-93-1854Itnvitfgh GFR (CKD-EPI)49.698 mL/MinGalion HospitalPharmacy Creatinine Clearance (Chem54.91[facility]49.698 mL/MinGalion Hospital54.91[facility] HospitalPlatelet mean volume Auto (Bld) [Entitic vol]Ordered By: Obaydah Daromar on 42-30-9114Zkfuawke mean volume (Bld) [Entitic vol]Platelet mean volume [Entitic volume] in Blood by Automated count6.6-10.1FOhioHealth Grant Medical CenterPlatelets Auto (Bld) [#/Vol]Ordered By: Obaydah Daromar on 63-77-4914Mvwleqmzr (Bld) [#/Vol]Platelets [#/volume] in Blood by Automated vxwbo041-559JqvsqlltxGalion Hospital Potassium [Moles/volume] in Serum or PlasmaOrdered By: Obaydah Daromar on 08-97-1537Xzobgfklg [Moles/Vol]Potassium [Moles/volume] in Serum or Plasma 3.5-5.1FOhioHealth Grant Medical CenterProtein [Mass/volume] in Serum or Plasma Ordered By: Obaydah Daromar on 60-48-1235Cbgcozk [Mass/Vol]Protein [Mass/volume] in Serum or PlasmaLow6.4-8.9[facility] HospitalRBC Auto (Bld) [#/Vol]Ordered By: Obaydah Daromar on 61-20-4581AWQ (Bld) [#/Vol]Erythrocytes [#/volume] in Blood by Automated count3.90-5.60[facility] Serum or plasma albumin/globulin mass ratioOrdered By: Obaydah Daromar on 21-45-8951Atflhwz/Globulin [Mass ratio]Serum or plasma albumin/globulin mass ratioSouthern Ohio Medical Centererum or plasma anion gap determination Ordered By: Obaydah Daromar on 94-35-9206Zfutq gap [Moles/Vol]Serum or plasma anion gap determination6.0-15.0[facility] Medical Centerodium [Moles/volume] in Serum or PlasmaOrdered By: Obaydah Daromar on 87-82-0900Uwjouk [Moles/Vol]Sodium [Moles/volume] in Serum or Ubywsi407-821JtgkrqndnGalion HospitalUrea nitrogen [Mass/volume] in Serum or PlasmaOrdered By: Obaydah Daromar on 93-03-5971Oaro nitrogen [Mass/Vol]Urea nitrogen [Mass/volume] in Serum or Plasma12-27[facility] HospitalAlbumin Levelon 08-12-2024 Albumin [Mass/Vol]3.5 g/dLNormal3.5-5.7The [facility] Physician GroupComment on above:Result Comment: PERFORMED BY:[place] [address] [place]AIN[place]ATESV[place], [place] [phone] MEDICAL DIRECTORMIKE LIU M.D.Performed By: #### SCAN CBC, ALB, BMP ####[address] [place] [address] USAAnisocytosis LM Ql (Bld) Ordered By: Marge Andino on 49-46-7748Btgwwztwphse Ql (Bld)Anisocytosis [Presence] in Blood by Light microscopyGalion HospitalBasic Metabolic Panelon 43-28-8829Mawzo gap [Moles/Vol]11.6 mmol/LNormal6.0-15.0The [facility] Physician GroupComment on above:Performed By: #### SCAN CBC, ALB, BMP ####[address] [address] USACalcium [Mass/Vol]6.3 mg/dLOff scale low8.6-10.3The [facility] Physician GroupComment on above:Result Comment: Critical Result Called to and read back by: NOT FIRST TIME CRITICAL at: 08/12/2024 06:59:53 by:RGPerformed By: #### SCAN CBC, ALB, BMP ####[address] [address] [place] Chloride [Moles/Vol]107 mmol/KBuuvhf65-646Yya [facility] Physician GroupComment on above:Performed By: #### SCAN CBC, ALB, BMP ####[address] [address] USACO2 [Moles/Vol]25.1 mmol/LNormal 21.0-31.0The [facility] GroupComment on above:Performed By: #### SCAN CBC, ALB, BMP ####[address] [address] USACreatinine [Mass/Vol]1.79 mg/dLSignificant change up0.70-1.30The [facility] Physician GroupComment on above:Performed By: #### SCAN CBC, ALB, BMP ####[place] [address] [place] Creatinine Clr Calc Qwkcserd09.77NormalThe [facility] Physician GroupComment on above:Result Comment: PERFORMED BY:[address] [place]MEKH[place]AL[place], [place] [phone] MEDICAL DIRECTORMIKE LIU M.D.Performed By: #### SCAN CBC, ALB, BMP ####[place] [address] USAEstimated GFR43.111 mL/Min NormalThe [facility] Physician GroupComment on above:Performed By: #### SCAN CBC, ALB, BMP ####[place] [address] USAGlucose [Mass/Vol]91 mg/aOUmxzja18-784Tdj [facility] Physician GroupComment on above:Result Comment: Random Glucose Reference Range is dependent on time and content of last meal. Glucose of more than 200 mg/dL in a nonstressed, ambulatory subject supports the diagnosis of Diabetes Mellitus. ADA recommended reference rangePerformed By: #### SCAN CBC, ALB, BMP ####[place] [address] USAPotassium [Moles/Vol]3.7 mmol/LNormal3.5-5.1The [facility] Physician GroupComment on above:Performed By: #### SCAN CBC, ALB, BMP ####[place] [address] USASodium [Moles/Vol]140 mmol/RQssckj378-300Wpw [facility] Physician GroupComment on above:Performed By: #### SCAN CBC, ALB, BMP ####[place] [address] USAUrea nitrogen [Mass/Vol]20 mg/dLNormal7-25The [facility] Physician GroupComment on above:Performed By: #### SCAN CBC, ALB, BMP ####[facility] [place] [address] USABasophils Auto (Bld) [#/Vol]Ordered By: Marge Andino on 88-80-6549Wzfemqqdp (Bld) [#/Vol]Automated basophil count 0.0-0.2FOhioHealth Grant Medical CenterBasophils/100 WBC Auto (Bld)Ordered By: Marge Andino on 82-74-3372Ptqfuhhyb/100 WBC (Bld)Automated basophil %. [facility] HospitalEosinophils Auto (Bld) [#/Vol]Ordered By: Marge Andino on 42-08-5431Ozzwmrdlnxc (Bld) [#/Vol]Automated eosinophil count 0.0-0.45[facility] HospitalEosinophils/100 WBC Auto (Bld)Ordered By: Marge Andino on 59-75-9715Xpyzmivqlgx/100 WBC (Bld)Automated eosinophil % .[facility] HospitalErythrocyte morphology finding [Identifier] in BloodOrdered By: Marge Andino on 10-89-8454VEF morphology finding Nom (Bld) RBC morphologyGalion HospitalGlucose Poct Glucometerson 41-09-6805Mxjhnaw [Mass/Vol]168 mg/dLNormalThe [facility] Physician GroupComment on above:Result Comment: Random Glucose Reference Range is dependent on time and content of last meal. Glucose of more than 200 mg/dL in a nonstressed, ambulatory subject supports the diagnosis of Diabetes Mellitus.PERFORMED BY:[place] [address] [place], [place] [phone] MEDICAL DIRECTORMIKE CABAN M.D. Performed By: #### GLULS ####Point of Care testing,Glucose [Mass/Vol]162 mg/dL NormalThe [facility] Physician GroupComment on above:Result Comment: Random Glucose Reference Range is dependent on time and content of last meal. Glucose of more than 200 mg/dL in a nonstressed, ambulatory subject supports the diagnosis of Diabetes Mellitus.PERFORMED BY:[address] [address] [place] [phone] MEDICAL DIRECTORMIKE CABAN M.D.Performed By: #### GLULS ####Point of Care testing,Glucose [Mass/Vol]179 mg/dLNormHCA Florida Bayonet Point Hospital Physician GroupComment on above:Result Comment: Random Glucose Reference Range is dependent on time and content of last meal. Glucose of more than 200 mg/dL in a nonstressed, ambulatory subject supports the diagnosis of Diabetes Mellitus.PERFORMED BY:[address] [place], [place] [phone] MEDICAL DIRECTORMIKE CABAN M.D. Performed By: #### GLULS ####Point of Care testing,Glucose [Mass/Vol]98 mg/dL NormalAscension Sacred [facility] Hospital [facility] Coast Physician GroupComment on above:Result Comment: Random Glucose Reference Range is dependent on time and content of last meal. Glucose of more than 200 mg/dL in a nonstressed, ambulatory subject supports the diagnosis of Diabetes Mellitus.PERFORMED BY:[address] [place], [place] [phone] MEDICAL DIRECTORMIKE CABAN M.D.Performed By: #### GLULS ####Point of Care testing,Hypochromia LM Ql (Bld)Ordered By: Marge Andino on 08-12-2024 Hypochromia Ql (Bld)Hypochromia [Presence] in Blood by Light microscopyGalion HospitalLymphocytes Auto (Bld) [#/Vol]Ordered By: Marge Andino on 12-35-3562Ulyqcaufhbo (Bld) [#/Vol]Lymphocytes [#/volume] in Blood by Automated count1.00-4.8[facility] HospitalLymphocytes/100 WBC Auto (Bld)Ordered By: Marge Andino on 82-84-0293Psgusqvnttl/100 WBC (Bld) Lymphocytes/100 leukocytes in Blood by Automated count.[facility] HospitalMagnesiumon 55-43-1092Tgnxvkopr [Mass/Vol]2.9 mg/dLSignificant change up1.9-2.7The [facility] Physician GroupComment on above:Result Comment: PERFORMED BY:[facility] [place]UKULDarrianMaryCHALINOYATESV[place]LE, [place] [phone] MEDICAL DIRECTORMIKE CABAN M.D. Performed By: #### MG ####[facility] Narvaezuniversity of south [facility] [address] USAMagnesium [Mass/volume] in Serum or PlasmaOrdered By: Maurice Francis on 83-19-2733Phhpmbynw [Mass/Vol]Magnesium [Mass/volume] in Serum or PlasmaSignificant change up1.9-2.7FOhioHealth Grant Medical Center Comment on above:Delta: 0.5 on 08/11/24-5Microcytes LM Ql (Bld)Ordered By: Marge Andino on 90-53-0514Jxevfotsoa Ql (Bld)Microcytes [Presence] in Blood by Light microscopyGalion HospitalMonocytes Auto (Bld) [#/Vol] Ordered By: Marge Andino on 81-30-3681Tacxnlxpm (Bld) [#/Vol]Automated blood monocyte count0.0-0.8[facility] HospitalMonocytes/100 WBC Auto (Bld)Ordered By: Marge Andino on 37-70-6853Cshnlsejw/100 WBC (Bld)Automated monocyte %.[facility] HospitalNeutrophils Auto (Bld) [#/Vol] Ordered By: Marge Andino on 78-52-2798Zfprooqaowy (Bld) [#/Vol]Neutrophils [#/volume] in Blood by Automated countHigh1.8-7.7FOhioHealth Grant Medical CenterNeutrophils/100 WBC Auto (Bld)Ordered By: Marge Andino on 08-12-2024 Neutrophils/100 WBC (Bld)Automated neutrophil %.[facility] HospitalNo Panel InformationOrdered By: Marge Andino on 54-13-0310OKG Comment See commentGalion HospitalComment on above:There is significant microcytosis which suggests the possibility of iron deficiency. Consider serumferritin and iron studies.See commentGalion HospitalNucleated erythrocytes [Presence] in Blood by Automated countOrdered By: Marge Andino on 68-68-3359Fxaytemch RBC Auto Ql (Bld)Nucleated erythrocytes [Presence] in Blood by Automated count0-0.5FOhioHealth Grant Medical Center Ovalocytes [Presence] in Blood by Light microscopyOrdered By: Marge Andino on 67-97-6981Vbrquxwuop LM Ql (Bld)Ovalocyte detectionGalion HospitalPlatelet adequacy [Presence] in Blood by Light microscopyOrdered By: Marge Andino on 56-77-7125Tkbapodsg LM Ql (Bld)Platelet adequacy [Presence] in Blood by Light microscopyNoOhio State Harding HospitalPlatelet morphology finding [Identifier] in BloodOrdered By: Marge Andino on 38-47-5786Zbmqyscr morphology finding Nom (Bld)Platelet morphology finding [Identifier] in BloodNoOhio State Harding HospitalPoikilocytosis [Presence] in Blood by Light microscopyOrdered By: Marge Andino on 08-12-2024 Poikilocytosis LM Ql (Bld)Poikilocytosis [Presence] in Blood by Light microscopy [facility] Centercan and CBCon 96-04-7264Neukynspll Comments NormalThe [facility] Physician GroupComment on above:Result Comment: There is significant microcytosis which suggests the possibility of iron deficiency. Consider serum ferritin and iron studies.PERFORMED BY:[address] [place], [place] [phone] MEDICAL DIRECTORMIKE CABAN M.D.Performed By: #### SCAN CBC, ALB, BMP ####[facility] [address] [place] [address] [place] Anisocytosis Ql (Bld)MarkedNormalThe [facility] Physician GroupComment on above: Performed By: #### SCAN CBC, ALB, BMP ####[facility] [address] [place] [address] USABasophils (Bld) [#/Vol]0.1 10*3/uLNormal 0.0-0.2The [facility] Physician GroupComment on above:Performed By: #### SCAN CBC, ALB, BMP ####[place] [address] USABasophils/100 WBC (Bld)0.8 %Normal.The [facility] Physician GroupComment on above:Performed By: #### SCAN CBC, ALB, BMP ####[place] [address] USAEosinophils (Bld) [#/Vol]0.3 10*3/uL Normal0.0-0.45The [facility] Physician GroupComment on above:Performed By: #### SCAN CBC, ALB, BMP ####[place] [address] USAEosinophils/100 WBC (Bld)3.1 %Normal.The [facility] Comment on above:Performed By: #### SCAN CBC, ALB, BMP ####[place] [address] USAErythrocyte distribution width (RBC) [Ratio]20.0 %High12.0-14.8The [facility] Physician GroupComment on above: Performed By: #### SCAN CBC, ALB, BMP ####[place] [address] USAHematocrit (Bld) [Volume fraction]29.5 %Low 38.8-50.0The [facility] Physician GroupComment on above:Performed By: #### SCAN CBC, ALB, BMP ####[place] [address] USAHemoglobin (Bld) [Mass/Vol]9.5 g/dLLow13.0-17.0The [facility] Physician GroupComment on above:Performed By: #### SCAN CBC, ALB, BMP ####[place] [address] USAHypochromasiaSlight NormalThe [facility] Physician GroupComment on above:Performed By: #### SCAN CBC, ALB, BMP ####[place] [address] USALymphocytes (Bld) [#/Vol]1.0 10*3/uLNormal1.00-4.8The [facility] Physician GroupComment on above:Performed By: #### SCAN CBC, ALB, BMP ####[place] [address] USALymphocytes/100 WBC (Bld)9.6 %Normal.The [facility] Physician GroupComment on above:Performed By: #### SCAN CBC, ALB, BMP ####[place] [address] [facility] (RBC) [Entitic mass]21.9 pgLow27.5-35.2The [facility] Physician GroupComment on above:Performed By: #### SCAN CBC, ALB, BMP ####[place] [address] [facility]IDV (RBC) [Entitic vol]68.2 fLLow83.5-101The [facility] Physician GroupComment on above:Performed By: #### SCAN CBC, ALB, BMP ####[place] [address] USAMean Corpuscular HGB Conc32.1 g/dLLow 32.5-35.6The [facility] Physician GroupComment on above:Performed By: #### SCAN CBC, ALB, BMP ####[place] [address] USAMicrocytosisModerateNormalThe [facility] Physician GroupComment on above:Performed By: #### SCAN CBC, ALB, BMP ####[place] [address] USAMonocytes (Bld) [#/Vol]0.8 10*3/uL Normal0.0-0.8The [facility] Physician GroupComment on above:Performed By: #### SCAN CBC, ALB, BMP ####[place] [address] USAMonocytes/100 WBC (Bld)8.3 %Normal.The [facility] Comment on above:Performed By: #### SCAN CBC, ALB, BMP ####[address] [place] [address] USANeutrophils (Bld) [#/Vol]8.0 10*3/uLHigh1.8-7.7The [facility] Physician GroupComment on above:Performed By: #### SCAN CBC, ALB, BMP ####[address] [address] USANeutrophils/100 WBC (Bld)78.2 %Normal.The [facility] Physician GroupComment on above:Performed By: #### SCAN CBC, ALB, BMP ####[address] [address] USANRBC% 0.1 /100{WBC}Normal0-0.5The [facility] Physician GroupComment on above:Performed By: #### SCAN CBC, ALB, BMP ####[address] [address] USAOvalocytesSlightNormHCA Florida Bayonet [facility] Hospital Physician Group Comment on above:Performed By: #### SCAN CBC, ALB, BMP ####[address] [address] USAPlatelet EstimateNormalNormal NormalThe [facility] Physician GroupComment on above:Performed By: #### SCAN CBC, ALB, BMP ####[address] [address] USAPlatelet mean volume (Bld) [Entitic vol]9.4 fLNormal6.6-10.1The [facility] Physician GroupComment on above:Performed By: #### SCAN CBC, ALB, BMP ####[address] [address] [place] Platelet MorphologyNormalNormalNormHCA Florida Bayonet Point Hospital Physician GroupComment on above:Performed By: #### SCAN CBC, ALB, BMP ####[address] [address] USAPlatelets (Bld) [#/Vol]162 10*3/uL Ursajo995-685Llt [facility] Physician GroupComment on above:Performed By: #### SCAN CBC, ALB, BMP ####[facility] [address] [place] [address] USAPoikilocytosisSlightNormalThe [facility] Physician GroupComment on above:Performed By: #### SCAN CBC, ALB, BMP ####[facility] [address] [place] [address] USARBC (Bld) [#/Vol]4.32 10*6/uLNormal 3.90-5.60The [facility] Physician GroupComment on above:Performed By: #### SCAN CBC, ALB, BMP ####[facility] [place] [address] USAWBC (Bld) [#/Vol]10.2 10*3/uLNormal4.1-10.5The [facility] Physician GroupComment on above:Performed By: #### SCAN CBC, ALB, BMP ####[address] [place] [address] USAWBC Auto (Bld) [#/Vol]Ordered By: Marge Andino on 59-37-0533IYW (Bld) [#/Vol]Leukocytes [#/volume] in Blood by Automated count4.1-10.5FOhioHealth Grant Medical Center Alanine aminotransferase [Enzymatic activity/volume] in Serum or PlasmaOrdered By: Francisco Duncan on 41-51-8964FOK [Catalytic activity/Vol]Alanine aminotransferase [Enzymatic activity/volume] in Serum or Plasma7-52[facility] HospitalAlbumin [Mass/volume] in Serum or Plasma by Bromocresol green (BCG) dye binding methoOrdered By: Francisco Duncan on 57-71-7210Jmkyeho BCG dye [Mass/Vol]Albumin [Mass/volume] in Serum or Plasma by Bromocresol green (BCG) dye binding metho3.5-5.7FOhioHealth Grant Medical CenterAlkaline phosphatase [Enzymatic activity/volume] in Serum or PlasmaOrdered By: Francisco Duncan on 05-63-4212NDF [Catalytic activity/Vol]Alkaline phosphatase [Enzymatic activity/volume] in Serum or EshlxfTmqk46-901SdvebjtvoGalion Hospital Anisocytosis LM Ql (Bld)Ordered By: Francisco Duncan on 88-02-3672Liqadqzyafnh Ql (Bld)Anisocytosis [Presence] in Blood by Light microscopyGalion HospitalAppearance of UrineOrdered By: Francisco Duncan on 08-11-2024 Appearance (U)Urine appearanceCleCommunity Regional Medical CenterAspartate aminotransferase [Enzymatic activity/volume] in Serum or PlasmaOrdered By: Francisco Duncan on 62-30-2602GUH [Catalytic activity/Vol]Aspartate aminotransferase [Enzymatic activity/volume] in Serum or RsrunlYzi00-25WvcwuvmuxGalion HospitalBand form neutrophils/100 WBC Manual cnt (Bld)Ordered By: Francisco Duncan on 20-52-9129Noot form neutrophils/100 WBC (Bld)Peripheral white blood cell differential % bands, microscopic exam0-5FOhioHealth Grant Medical CenterBasophils Auto (Bld) [#/Vol]Ordered By: Francisco Duncan on 08-11-2024 Basophils (Bld) [#/Vol]Automated basophil countGalion Hospital Basophils/100 WBC Auto (Bld)Ordered By: Francisco Duncan on 73-81-5176Arvxceivh/100 WBC (Bld)Automated basophil %[facility] HospitalBasophils/100 WBC Manual cnt (Bld)Ordered By: Francisco Duncan on 55-85-0455Vyaxiuusq/100 WBC (Bld) Basophils/100 leukocytes in Blood by Manual count02FOhioHealth Grant Medical CenterBilirubin Test strip Ql (U)Ordered By: Francisco Duncan on 08-11-2024 Bilirubin Ql (U)Bilirubin.total [Presence] in Urine by Test stripNegative [facility] HospitalBilirubin.total [Mass/volume] in Serum or PlasmaOrdered By: Francisco Duncan on 87-43-9394Mqtczngaq [Mass/Vol]Bilirubin.total [Mass/volume] in Serum or Plasma0.3-1.0[facility] HospitalBurr cells [Presence] in Blood by Light microscopyOrdered By: Francisco Duncan on 48-45-1626Qdqi cells LM Ql (Bld)Leigh Ann cells [Presence] in Blood by Light microscopyGalion HospitalCT angio neckon 41-47-0307WZ angio neckNormHCA Florida [facility] Point Hospital Physician GroupCalcium [Mass/volume] in Serum or Plasma Ordered By: Francisco Duncan on 67-29-3644Zexnlwe [Mass/Vol]Calcium [Mass/volume] in Serum or PlasmaCritically low8.6-10.3FOhioHealth Grant Medical CenterComment on above:Critical Result Called to and read back by: MONCHO FINK at: 08/11/2024 04:56:06 by:DHCarbon dioxide, total [Moles/volume] in Serum or Plasma Ordered By: Francisco Duncan on 39-54-7025GP4 [Moles/Vol]Carbon dioxide, total [Moles/volume] in Serum or Vkxmpx99.0-31.0[facility] Chloride [Moles/volume] in Serum or PlasmaOrdered By: Francisco Duncan on 92-67-6493Loopyrel [Moles/Vol]Chloride [Moles/volume] in Serum or Utuoms15-689 [facility] HospitalColor Auto (U)Ordered By: Francisco Duncan on 96-18-8231Pbyov (U)Color of Urine by AutoYellowGalion Hospital Comprehensive Metabolic Panelon 22-59-4066Gtzffig [Mass/Vol]4.2 g/dLNormal 3.5-5.7The [facility] Physician GroupComment on above:Performed By: #### DIFF CBC, CK, PT, PTT, CMP, HS TROP ####[facility] [place] [address] USAAlbumin/Globulin [Mass ratio]1.6 {ratio}NormalThe [facility] Community Medical CenterComment on above:Performed By: #### DIFF CBC, CK, PT, PTT, CMP, HS TROP ####[facility] [place] [address] USAALP [Catalytic activity/Vol]105 U/CZpbh14-998Zjj [facility] CenterComment on above:Performed By: #### DIFF CBC, CK, PT, PTT, CMP, HS TROP ####[facility] [place] [address] USAALT [Catalytic activity/Vol]11 U/LNormal7-52The [facility] Community Medical CenterComment on above:Performed By: #### DIFF CBC, CK, PT, PTT, CMP, HS TROP ####[facility] [place] [address] USAAnion gap [Moles/Vol] 16.0 mmol/LHigh6.0-15.0The [facility] Physician GroupComment on above:Performed By: #### DIFF CBC, CK, PT, PTT, CMP, HS TROP ####[place] [address] USAAST [Catalytic activity/Vol]12 U/LLow 13-39The [facility] Physician GroupComment on above:Performed By: #### DIFF CBC, CK, PT, PTT, CMP, HS TROP ####[place] [address] USABilirubin [Mass/Vol]0.4 mg/dLNormal0.3-1.0The [facility] Physician GroupComment on above:Performed By: #### DIFF CBC, CK, PT, PTT, CMP, HS TROP ####[place] [address] USACalcium [Mass/Vol]6.1 mg/dLOff scale low8.6-10.3The [facility] Physician GroupComment on above:Result Comment: Critical Result Called to and read back by: MONCHO FINK at: 08/11/2024 04:56:06by:DHPerformed By: #### DIFF CBC, CK, PT, PTT, CMP, HS TROP ####[place] [address] USAChloride [Moles/Vol]100 mmol/UZvbazc04-634Xjq [facility] Physician GroupComment on above:Performed By: #### DIFF CBC, CK, PT, PTT, CMP, HS TROP ####[place] [id number] USACO2 [Moles/Vol]27.1 mmol/OXqydmp86.0-31.0[facility] Comment on above:Performed By: #### DIFF CBC, CK, PT, PTT, CMP, HS TROP ####[place] [address] [place] Creatinine [Mass/Vol]2.62 mg/dLHigh0.70-1.30The [facility] Physician GroupComment on above:Performed By: #### DIFF CBC, CK, PT, PTT, CMP, HS TROP ####[place] [address] [place] [address] USACreatinine Clr Calc Jbpnvyov00.32NoThe [facility] Hospital Physician GroupComment on above:Result Comment: PERFORMED BY:[address] [address] [place], [place] [phone] MEDICAL DIRECTORMIKE CABAN M.D. Performed By: #### DIFF CBC, CK, PT, PTT, CMP, HS TROP ####[address] [place] [address] USAEstimated GFR27.293 mL/Min NormalThe [facility] Physician GroupComment on above:Performed By: #### DIFF CBC, CK, PT, PTT, CMP, HS TROP ####[address] [place] [address] USAGlobulin (S) [Mass/Vol]2.7 g/dLNoThe [facility] Hospital Physician GroupComment on above:Performed By: #### DIFF CBC, CK, PT, PTT, CMP, HS TROP ####[place] [id number] [facility] Glucose [Mass/Vol]102 mg/jXCrgt35-320Ajv [facility] Physician GroupComment on above:Result Comment: Random Glucose Reference Range is dependent on time and content of last meal. Glucose of more than 200 mg/dL in a nonstressed, ambulatory subject supports the diagnosis of Diabetes Mellitus. ADA recommended reference rangePerformed By: #### DIFF CBC, CK, PT, PTT, CMP, HS TROP ####[address] [address] [facility] Potassium [Moles/Vol]3.1 mmol/LLow3.5-5.1The [facility] Physician GroupComment on above:Performed By: #### DIFF CBC, CK, PT, PTT, CMP, HS TROP ####[address] [address] USAProtein [Mass/Vol]6.9 g/dLNormal6.4-8.9The [facility] Physician GroupComment on above:Performed By: #### DIFF CBC, CK, PT, PTT, CMP, HS TROP ####[place] [address] USASodium [Moles/Vol]140 mmol/HVhjoed399-100ZiyNoxubee General HospitalComment on above:Performed By: #### DIFF CBC, CK, PT, PTT, CMP, HS TROP ####[place] [id number] USAUrea nitrogen [Mass/Vol]26 mg/dLHigh7-25The [facility] Physician [facility] Comment on above:Performed By: #### DIFF CBC, CK, PT, PTT, CMP, HS TROP ####[place] [address] USACreatine Kinaseon 28-17-6861PW [Catalytic activity/Vol]305 U/NPuyv16-900[place] Physician [facility] HospitalComment on above:Performed By: #### DIFF CBC, CK, PT, PTT, CMP, HS TROP ####[address] Creatine kinase [Enzymatic activity/volume] in Serum or PlasmaOrdered By: Francisco Duncan on 16-81-7413DP [Catalytic activity/Vol]Creatine kinase [Enzymatic activity/volume] in Serum or VcgbhtVlpp22-549DyyfxxxmcGalion Hospital Creatinine [Mass/volume] in Serum or PlasmaOrdered By: Francisco Duncan on 82-75-4092Dwhvokjdnf [Mass/Vol]Creatinine [Mass/volume] in Serum or PlasmaHigh 0.70-1.30Galion HospitalDiff and CBCon 07-95-1917Uqzgckhxkrba Ql (Bld)MarkedNoUniversity Hospitals TriPoint Medical CenterComment on above:Performed By: #### DIFF CBC, CK, PT, PTT, CMP, HS TROP ####[place] [phone] USABand form neutrophils/100 WBC (Bld)1 %Normal0-5 The [facility] Physician [facility] HospitalComment on above:Performed By: #### DIFF CBC, CK, PT, PTT, CMP, HS TROP ####[place] [id number] USABasophils/100 WBC (Bld)1 %Normal0-2The [facility] Physician GroupComment on above:Performed By: #### DIFF CBC, CK, PT, PTT, CMP, HS TROP ####[place] [address] [place] Crenated RBCSlightNormalThe [facility] Physician GroupComment on above:Performed By: #### DIFF CBC, CK, PT, PTT, CMP, HS TROP ####[place] [phone] USAEosinophils/100 WBC (Bld)4 %High1-3The [facility] Physician GroupComment on above:Performed By: #### DIFF CBC, CK, PT, PTT, CMP, HS TROP ####[place] [address] USAErythrocyte distribution width (RBC) [Ratio]20.1 %High12.0-14.8The [facility] Physician GroupComment on above:Performed By: #### DIFF CBC, CK, PT, PTT, CMP, HS TROP ####[place] [address] USAHematocrit (Bld) [Volume fraction]35.8 %Low38.8-50.0The [facility] Physician GroupComment on above:Performed By: #### DIFF CBC, CK, PT, PTT, CMP, HS TROP ####[place] [phone] [facility] Hemoglobin (Bld) [Mass/Vol]11.6 g/dLLow13.0-17.0The [facility] Comment on above:Performed By: #### DIFF CBC, CK, PT, PTT, CMP, HS TROP ####[place] [phone] [place] Lymphocytes/100 WBC (Bld)30 %Wzjgrd14-57Aqr [facility] Physician GroupComment on above:Performed By: #### DIFF CBC, CK, PT, PTT, CMP, HS TROP ####[place] [phone] [facility] (RBC) [Entitic mass]21.8 pgLow27.5-35.2The [facility] Physician GroupComment on above:Performed By: #### DIFF CBC, CK, PT, PTT, CMP, HS TROP ####[place] [phone] [facility] (RBC) [Entitic vol]67.4 fLLow 83.5-101The [facility] Physician GroupComment on above:Performed By: #### DIFF CBC, CK, PT, PTT, CMP, HS TROP ####[address] Corpuscular HGB Conc32.3 g/dLLow32.5-35.6The [facility] Physician GroupComment on above:Performed By: #### DIFF CBC, CK, PT, PTT, CMP, HS TROP ####[place] [phone] USAMicrocytosisModerateAdventHealth Palm Coast Parkway Physician [facility] HospitalComment on above:Performed By: #### DIFF CBC, CK, PT, PTT, CMP, HS TROP ####[place] [phone] USAMonocytes/100 WBC (Bld)17.90 %Normal0.00-20.00The [facility] Physician GroupComment on above: Performed By: #### DIFF CBC, CK, PT, PTT, CMP, HS TROP ####[place] [phone] USAMonocytes/100 WBC (Bld)5 % Normal2-11The [facility] Physician GroupComment on above:Performed By: #### DIFF CBC, CK, PT, PTT, CMP, HS TROP ####[place] [phone] USAOvalocytesSlightAdventHealth Palm Coast Parkway Physician Group Comment on above:Performed By: #### DIFF CBC, CK, PT, PTT, CMP, HS TROP ####[address] [address] USAPlatelet EstimateNormalNormalAdventHealth Palm Coast Parkway Physician GroupComment on above: Performed By: #### DIFF CBC, CK, PT, PTT, CMP, HS TROP ####[address] [address] USAPlatelet mean volume (Bld) [Entitic vol]9.1 fLNormal6.6-10.1The [facility] Physician GroupComment on above: Result Comment: PERFORMED BY:[address] [place], [place] [phone] MEDICAL DIRECTORMIKE LIU M.D.Performed By: #### DIFF CBC, CK, PT, PTT, CMP, HS TROP ####[address] [address] USAPlatelet MorphologyNormalNormalAdventHealth Palm Coast Parkway Physician GroupComment on above:Result Comment: PERFORMED BY:[address] [place]MaryCHAL[place], [place] [phone] MEDICAL DIRECTORMIKE CABAN M.D. Performed By: #### DIFF CBC, CK, PT, PTT, CMP, HS TROP ####[address] [address] USAPlatelets (Bld) [#/Vol]209 10*3/kMPgwuzo867-825Cqs [facility] Physician GroupComment on above:Performed By: #### DIFF CBC, CK, PT, PTT, CMP, HS TROP ####[address] [address] USAPoikilocytosisSAtrium Health Physician GroupComment on above:Performed By: #### DIFF CBC, CK, PT, PTT, CMP, HS TROP ####[address] [address] USA PolychromasiaSAtrium Health Physician GroupComment on above:Performed By: #### DIFF CBC, CK, PT, PTT, CMP, HS TROP ####[place] [address] [place] [id number] USARBC (Bld) [#/Vol]5.32 10*6/uLNormal 3.90-5.60The [facility] Physician GroupComment on above:Performed By: #### DIFF CBC, CK, PT, PTT, CMP, HS TROP ####[place] [phone] USASegmented neutrophils/100 WBC (Bld)60 %Bnijsk32-29 The [facility] Physician GroupComment on above:Performed By: #### DIFF CBC, CK, PT, PTT, CMP, HS TROP ####[place] [phone] USAWBC (Bld) [#/Vol]10.7 10*3/uLHigh4.1-10.5The [facility] Physician GroupComment on above:Performed By: #### DIFF CBC, CK, PT, PTT, CMP, HS TROP ####[address] [address] USAECG 12 lead ECGon 17-36-0586KUQ 12 lead ECGNormalThe [facility] Physician [facility] HospitalEosinophils Auto (Bld) [#/Vol]Ordered By: Francisco Duncan on 96-55-7779Vuvnzfwcjai (Bld) [#/Vol]Automated eosinophil countGalion HospitalEosinophils/100 WBC Auto (Bld)Ordered By: Francisco Duncan on 35-17-4696Fsngjdijdcm/100 WBC (Bld)Automated eosinophil %Galion HospitalEosinophils/100 WBC Manual cnt (Bld)Ordered By: Francisco Duncan on 48-50-3987Xnllcqcbdkf/100 WBC (Bld)Eosinophils/100 leukocytes in Blood by Manual countHigh1-3FOhioHealth Grant Medical CenterErythrocyte distribution width Auto (RBC) [Ratio]Ordered By: Francisco Duncan on 01-71-3550Jrmwhocbncu distribution width (RBC) [Ratio]Erythrocyte distribution width [Ratio] by Automated bgpviZnta62.0-14.8Galion HospitalErythrocyte morphology finding [Identifier] in BloodOrdered By: Francisco Duncan on 08-11-2024 RBC morphology finding Nom (Bld)RBC morphologyGalion Hospital Ferritinon 41-00-6399Ktbxjefo [Mass/Vol]5.3 ng/mLLow23.9-336.2The [facility] Physician GroupComment on above:Order Comment: Comment addResult Comment: PERFORMED BY:[address] [place] [phone] MEDICAL DIRECTORMIKE CABAN M.D. Performed By: #### FE and TIBC, LILA ####[facility] [address] [place], [place] USAFerritin [Mass/volume] in Serum or PlasmaOrdered By: Marge Andino on 02-98-1911Fivjkfic [Mass/Vol]Ferritin [Mass/volume] in Serum or CmzicgRkq87.9-336.2FOhioHealth Grant Medical CenterFolate [Mass/volume] in Serum or PlasmaOrdered By: Marge Andino on 53-93-0367Seawhc [Mass/Vol]Folate [Mass/volume] in Serum or Plasma>5.9Galion HospitalComment on above:Folate reference range: >5.9 ng/mlThe WHO technical consultation on folate and vitamin s35guiovthjprtg has determined that folate concentrations lessthan 4 ng/ml are considered deficient.Globulin Calc (S) [Mass/Vol]Ordered By: Francisco Duncan on 57-63-5706Xdqmtryd (S) [Mass/Vol]Serum globulin measurement by calculation (mass/volume)Galion HospitalGlucose Poct Glucometerson 32-82-2904Xggduhd5Gpb4: Cleaned MeterNormHCA Florida Bayonet Point Hospital Physician GroupComment on above:Result Comment: PERFORMED BY:[address] [place], [place] [phone] MEDICAL FRANSISCO CABAN M.D.Performed By: #### GLULS ####Point of Care testing,Glucose [Mass/Vol]241 mg/dLNoThe [facility] Hospital Physician GroupComment on above:Result Comment: Random Glucose Reference Range is dependent on time and content of last meal. Glucose of more than 200 mg/dL in a nonstressed, ambulatory subject supports the diagnosis of Diabetes Mellitus.Performed By: #### GLULS ####Point of Care testing,Glucose [Mass/Vol]244 mg/dLAdventHealth Palm Coast Parkway Physician GroupComment on above:Result Comment: Random Glucose Reference Range is dependent on time and content of last meal. Glucose of more than 200 mg/dL in a nonstressed, ambulatory subject supports the diagnosis of Diabetes Mellitus.PERFORMED BY:[place] [address] [place], [place] [phone] MEDICAL DIRECTORMIKE LIU M.D.Performed By: #### GLULS ####Point of Care testing,Rgwmnia1Llf6: Cleaned MeterNoThe [facility] Hospital Physician GroupComment on above:Result Comment: PERFORMED BY:[place] [address] [place], [place] [phone] MEDICAL DIRECTORMIKE CABAN M.D. Performed By: #### GLULS ####Point of Care testing,Glucose [Mass/Vol]89 mg/dL NormalAscension Sacred Heart Hospital Emerald Coast Physician GroupComment on above:Result Comment: Random Glucose Reference Range is dependent on time and content of last meal. Glucose of more than 200 mg/dL in a nonstressed, ambulatory subject supports the diagnosis of Diabetes Mellitus.Performed By: #### GLULS ####Point of Care testing,Glucose [Mass/Vol]176 mg/dLAdventHealth Palm Coast Parkway Physician GroupComment on above:Result Comment: Random Glucose Reference Range is dependent on time and content of last meal. Glucose of more than 200 mg/dL in a nonstressed, ambulatory subject supports the diagnosis of Diabetes Mellitus.PERFORMED BY:[place] [address] [place], [place] [phone] MEDICAL DIRECTORMIKE CABAN M.D. Performed By: #### GLULS ####Point of Care testing,Glucose [Mass/volume] in Serum or PlasmaOrdered By: Francisco Duncan on 23-22-1541Ubmmegb [Mass/Vol]Glucose [Mass/volume] in Serum or AhvvnyWdms46-241OnkomzqiwGalion Hospital Comment on above:ADA recommended reference rangeRandom Glucose Reference Range is dependent on time and content of last meal. Glucose of more than 200 mg/dL in a nonstressed, ambulatory subject supports the diagnosisof Diabetes Mellitus. Glucose [Mass/volume] in Urine by Test stripOrdered By: Francisco Duncan on 92-90-2851Umrbros Test strip (U) [Mass/Vol]Glucose [Mass/volume] in Urine by Test stripHighNormalGalion HospitalHematocrit Auto (Bld) [Volume fraction]Ordered By: Francisco Duncan on 14-50-7838Ybxaeqnvtg (Bld) [Volume fraction]Hematocrit [Volume Fraction] of Blood by Automated hemanOxb14.8-50.0 Galion HospitalHemoglobin Test strip Ql (U)Ordered By: Francisco Duncan on 39-42-5721Rmotgyvhqp Ql (U)Hemoglobin [Presence] in Urine by Test stripNegativeGalion HospitalHemoglobin [Mass/volume] in Blood Ordered By: Francisco Duncan on 28-20-8172Ffwddkvacg (Bld) [Mass/Vol]Hemoglobin [Mass/volume] in MfefnRvs60.0-17.0Galion HospitalINR in Platelet poor plasma by Coagulation assayOrdered By: Francisco Duncan on 08-11-2024 INR Coag (PPP) [Relative time]INR in Platelet poor plasma by Coagulation assay Galion HospitalComment on above:INR Therapeutic Range A) Pre- [...] Serum or PlasmaOrdered By: Marge Andino on 09-88-7883Tizh [Mass/Vol]Iron [Mass/volume] in Serum or PgqxonGms90-172LjdexorwdGalion HospitalIron and TIBC Profileon 08-11-2024% Iron Saturation7.0 %Iyg37-17Ovy [facility] Comment on above:Order Comment: Comment addPerformed By: #### FE and TIBC, LILA ####[address] USAIron [Mass/Vol]29 ug/kRArw83-151Dvj [facility] Physician GroupComment on above:Order Comment: Comment addPerformed By: #### FE and TIBC, LILA ####[address] USATotal Iron Binding Simecxyi834 ug/bQPrlgqj190-086Xrl [facility] Physician [facility] HospitalComment on above:Order Comment: Comment addPerformed By: #### FE and TIBC, LILA ####[address] [address] USATransferrin [Mass/Vol]296 mg/dLNormal 203-362The [facility] Physician [facility] HospitalComment on above:Order Comment: Comment add Performed By: #### FE and TIBC, LILA ####[address] [place] USAKetones Test strip Ql (U)Ordered By: Francisco Duncan on 02-25-6028Mllstnm Ql (U)Ketones [Presence] in Urine by Test stripNegative Galion HospitalLeukocyte esterase [Presence] in Urine by Test stripOrdered By: Francisco Duncan on 49-85-9720Mkqhmhjsg esterase Test strip Ql (U) Leukocyte esterase [Presence] in Urine by Test stripNegativeGalion HospitalLeukocytes [#/volume] corrected for nucleated erythrocytes in Blood by Automated counOrdered By: Francisco Duncan on 69-15-6509MYE corrected for nucl RBC Auto (Bld) [#/Vol]Leukocytes [#/volume] corrected for nucleated erythrocytes in Blood by Automated counHigh4.1-10.5FOhioHealth Grant Medical CenterLymphocytes Auto (Bld) [#/Vol]Ordered By: Francisco Duncan on 08-11-2024 Lymphocytes (Bld) [#/Vol]Lymphocytes [#/volume] in Blood by Automated count Galion HospitalLymphocytes/100 WBC Auto (Bld)Ordered By: Francisco Duncan on 70-23-1872Bmpbyfqaccl/100 WBC (Bld)Lymphocytes/100 leukocytes in Blood by Automated countGalion HospitalLymphocytes/100 WBC Manual cnt (Bld)Ordered By: Francisco Duncan on 97-70-2852Wvzbspyymwv/100 WBC (Bld) Lymphocytes/100 leukocytes in Blood by Manual aktch22-25AjeaidxcwThe Bellevue HospitalH Auto (RBC) [Entitic mass]Ordered By: Francisco Duncan on 45-87-1296ELN (RBC) [Entitic mass]MCH [Entitic mass] by Automated countLow 27.5-35.2FWright-Patterson Medical CenterHC Auto (RBC) [Mass/Vol]Ordered By: Francisco Duncan on 23-56-5897BPLI (RBC) [Mass/Vol]MCHC [Mass/volume] by Automated vlsqfZfs87.5-35.6FWright-Patterson Medical CenterV Auto (RBC) [Entitic vol] Ordered By: Francisco Duncan on 26-65-8440JMZ (RBC) [Entitic vol]MCV [Entitic volume] by Automated xzkyeZgv52.5-101Galion HospitalMagnesium on 37-28-5935Epjjfvmol [Mass/Vol]0.5 mg/dLOff scale low1.9-2.7The [facility] Physician GroupComment on above:Order Comment: Comment addResult Comment: Critical Result S_MG: Called to and read back by: MONCHO FINK at: 08/11/2024 06:13:29 by:RANDOLPHPerformed By: #### TSH3, MG, PJMH35MYS, DMBE88AJ ####[facility] [address] [place] [address] USAMagnesium [Mass/volume] in Serum or PlasmaOrdered By: Marge Andino on 08-11-2024 Magnesium [Mass/Vol]Magnesium [Mass/volume] in Serum or PlasmaCritically low 1.9-2.7FOhioHealth Grant Medical CenterComment on above:Critical Result S_MG: Called to and read back by: MONCHO FINK at: 08/11/2024 06:13:29 by:RANDOLPH Microcytes LM Ql (Bld)Ordered By: Francisco Duncan on 18-02-9800Pmytutwbce Ql (Bld) Microcytes [Presence] in Blood by Light microscopyGalion HospitalMonocyte distribution width [Entitic volume] in Blood by AutomatedOrdered By: Francisco Duncan on 91-84-7189Ktwebvwo distribution width Auto (Bld) [Entitic vol]Monocyte distribution width [Entitic volume] in Blood by Automated0.00-20.00 Galion HospitalMonocytes Auto (Bld) [#/Vol]Ordered By: Francisco Duncan on 07-70-6013Xmyjipxpm (Bld) [#/Vol]Automated blood monocyte count Galion HospitalMonocytes/100 WBC Auto (Bld)Ordered By: Francisco Duncan on 90-67-7481Upyjsxmmv/100 WBC (Bld)Automated monocyte %Galion HospitalMonocytes/100 WBC Manual cnt (Bld)Ordered By: Francisco Duncan on 29-55-2873Dchbzcovs/100 WBC (Bld)Monocytes/100 leukocytes in Blood by Manual count2-11Galion HospitalNeutrophils Auto (Bld) [#/Vol] Ordered By: Francisco Duncan on 15-22-4589Jztasbodhho (Bld) [#/Vol]Neutrophils [#/volume] in Blood by Automated countGalion Hospital Neutrophils/100 WBC Auto (Bld)Ordered By: Francisco Duncan on 08-11-2024 Neutrophils/100 WBC (Bld)Automated neutrophil %[facility] Nitrite Test strip Ql (U)Ordered By: Francisco Duncan on 75-35-0638Zophbno Ql (U) Nitrite [Presence] in Urine by Test stripNegativeGalion HospitalNo Panel InformationOrdered By: Kevon Viera on 42-28-8930Vrrudgk Glucose CommentGlu2: cleaned [facility] HospitalGlu2: cleaned [facility] HospitalNo Panel InformationOrdered By: Francisco Duncan on 87-88-2411Dbutehcnv GFR (CKD-EPI)27.293 mL/MinGalion HospitalPharmacy Creatinine Clearance (Chem33.32Galion HospitalNucleated erythrocytes [Presence] in Blood by Automated countOrdered By: Francisco Duncan on 08-19-4122Yhfspilon RBC Auto Ql (Bld)Nucleated erythrocytes [Presence] in Blood by Automated countGalion Hospital Ovalocytes [Presence] in Blood by Light microscopyOrdered By: Francisco Duncan on 49-46-2203Uxajrmplfe LM Ql (Bld)Ovalocyte detectionGalion HospitalParathyrin.intact [Mass/volume] in Serum or PlasmaOrdered By: Francisco Duncan on 99-57-8108Mskpjjzulo.intact [Mass/Vol]Parathyrin.intact [Mass/volume] in Serum or Ljbxfi92-72GuylnzaufGalion HospitalParathyroid Hormone Intacton 10-22-0081Sssogtocykk Hormone Kcanka44.3 pg/mCZryqoz06-20Psp [facility] Physician GroupComment on above:Result Comment: PERFORMED BY:[place] [address] [place], [place] [phone] MEDICAL DIRECTORMIKE CABAN M.D.Performed By: #### PTH, PHOS ####[address] [address] [place] [address] USAPartial Thromboplastin Timeon 62-57-4519uDBA Coag (Bld) [Time]30.9 hSmwnmz20.1-36.5The [facility] Physician GroupComment on above:Result Comment: A hematocrit value greater than 55% may lead to inaccurate results in coagulation testing. Patients having hematocrit values >55% require a special collection tube for coagulation studies. Please contact the laboratory at [phone] for redraw instructions.PERFORMED BY:[address] [place], [place] [phone] MEDICAL DIRECTORMIKE LIU M.D.Performed By: #### DIFF CBC, CK, PT, PTT, CMP, HS TROP ####[address] [address] [facility] Phosphate [Mass/volume] in Serum or PlasmaOrdered By: Francisco Duncan on 52-41-9067Qvgiartzp [Mass/Vol]Phosphate [Mass/volume] in Serum or PlasmaHigh 2.5-4.5FOhioHealth Grant Medical CenterPhosphoruson 65-35-6597Itcbuhrpv [Mass/Vol]4.8 mg/dLHigh2.5-4.5The [facility] Physician GroupComment on above: Result Comment: PERFORMED BY:[facility] [place], [place] [phone] MEDICAL DIRECTORMIKE LIU M.D.Performed By: #### PTH, PHOS ####[facility] [address] [place] [address] USAPlatelet adequacy [Presence] in Blood by Light microscopyOrdered By: Francisco Duncan on 02-13-8941Hequjbnmq LM Ql (Bld) Platelet adequacy [Presence] in Blood by Light microscopyMary Rutan HospitalPlatelet mean volume Auto (Bld) [Entitic vol]Ordered By: Francisco Duncan on 77-99-1833Pfeugpsn mean volume (Bld) [Entitic vol]Platelet mean volume [Entitic volume] in Blood by Automated count6.6-10.1FOhioHealth Grant Medical CenterPlatelet morphology finding [Identifier] in BloodOrdered By: Francisco Duncan on 96-05-9734Qsmhdkpw morphology finding Nom (Bld)Platelet morphology finding [Identifier] in BloodNoOhio State Harding Hospital Platelets Auto (Bld) [#/Vol]Ordered By: Francisco Duncan on 21-16-2272Tzoajijrc (Bld) [#/Vol]Platelets [#/volume] in Blood by Automated ecyny029-412XwcuoaivbGalion HospitalPoikilocytosis [Presence] in Blood by Light microscopy Ordered By: Francisco Duncan on 99-49-2949Hjqtmailxcysmh LM Ql (Bld)Poikilocytosis [Presence] in Blood by Light microscopyGalion Hospital Polychromasia [Presence] in Blood by Light microscopyOrdered By: Francisco Duncan on 65-65-8771Iqfzqufjaehoo LM Ql (Bld)Polychromasia [Presence] in Blood by Light microscopyGalion HospitalPotassium [Moles/volume] in Serum or PlasmaOrdered By: Francisco Duncan on 72-12-2646Npcvupsnz [Moles/Vol]Potassium [Moles/volume] in Serum or PlasmaLow3.5-5.1FOhioHealth Grant Medical Center Protein Test strip (U) [Mass/Vol]Ordered By: Francisco Duncan on 20-55-5193Pelujjp (U) [Mass/Vol]Protein [Mass/volume] in Urine by Test stripNegativeGalion HospitalProtein [Mass/volume] in Serum or PlasmaOrdered By: Francisco Duncan on 98-69-2142Jkspxvx [Mass/Vol]Protein [Mass/volume] in Serum or Plasma6.4-8.9Galion HospitalProthrombin Time INRon 08-11-2024 INR Coag (PPP) [Relative time]1.2 {INR}NormalThe [facility] Comment on above:Result Comment: [...] PT, PTT, CMP, HS TROP ####[place] [address] [place] [id number] [facility] PT Coag (PPP) [Time]13.8 sHigh9.0-12.9The [facility] Physician [facility] HospitalComment on above:Result Comment: A hematocrit value greater than 55% may lead to inaccurate results in coagulation testing. Patients having hematocrit values >55% require a special collection tube for coagulation studies. Please contact the laboratory at [phone] for redraw instructions.Performed By: #### DIFF CBC, CK, PT, PTT, CMP, HS TROP ####[address] [place], [place] [address] USAProthrombin time (PT)Ordered By: Francisco Duncan on 45-72-2364NW Coag (PPP) [Time]Prothrombin time (PT)High9.0-12.9[facility] Comment on above:A hematocrit value greater than 55% may lead to inaccurate results in coagulation testing. Patientshaving hematocrit values >55% require a special collection tube for coagulation studies. Please contact the laboratory at [phone] for redraw instructions.RBC Auto (Bld) [#/Vol]Ordered By: Francisco Duncan on 29-71-1310QAE (Bld) [#/Vol]Erythrocytes [#/volume] in Blood by Automated count3.90-5.60[facility] Centeregmented neutrophils/100 WBC Manual cnt (Bld)Ordered By: Francisco Duncan on 08-11-2024 Segmented neutrophils/100 WBC (Bld)Manual blood segmented neutrophils/100 zevevyikuy60-69SruhhsfliSouthern Ohio Medical Centererum or plasma albumin/globulin mass ratioOrdered By: Francisco Duncan on 15-84-7480Sijkeqg/Globulin [Mass ratio] Serum or plasma albumin/globulin mass ratioGalion Hospital Serum or plasma anion gap determinationOrdered By: Francisco Duncan on 08-11-2024 Anion gap [Moles/Vol]Serum or plasma anion gap determinationHigh6.0-15.0 [facility] Centererum or plasma iron binding capacity measurement (mass/volume)Ordered By: Marge Andino on 92-54-7520Txje binding capacity [Mass/Vol]Iron binding capacity [Mass/volume] in Serum or Rpoiom621-701 [facility] Centererum or plasma iron saturation measurement (mass fraction)Ordered By: Marge Andino on 90-80-7894Gokh saturation [Mass fraction]Iron saturation [Mass Fraction] in Serum or AnonbmKtl96-93IlawmazdnSouthern Ohio Medical Centerodium [Moles/volume] in Serum or PlasmaOrdered By: Francisco Duncan on 30-89-1809Agdoml [Moles/Vol]Sodium [Moles/volume] in Serum or Arhbqh055-483KtpjfntcsSouthern Ohio Medical Centerpecific gravity Test strip (U) [Rel density]Ordered By: Francisco Duncan on 07-56-3765Vwhhdzhz gravity (U) [Rel density]Specific gravity of Urine by Test strip1.001-1.030[facility] HospitalThyroid Stimulating Hormoneon 20-75-8691CAY Qn4.18 m[IU]/LNormal 0.45-5.33The [facility] Physician GroupComment on above:Order Comment: Comment addPerformed By: #### TSH3, MG, QNDI06FEI, JYJF63US ####[facility] [address] [place] [address] USAThyrotropin [Units/volume] in Serum or PlasmaOrdered By: Marge Andino on 61-50-3420WHE QnThyrotropin [Units/volume] in Serum or Plasma0.45-5.33[facility] Transferrin [Mass/volume] in Serum or PlasmaOrdered By: Marge Andino on 69-86-1329Zffstlfjzso [Mass/Vol]Transferrin [Mass/volume] in Serum or Plasma 203-362[facility] HospitalTroponin I High Sensitivityon 08-11-2024 Troponin I High Gegcgsiqftn1Owfdyq4-39Ufe [facility] Physician GroupComment on above:Result Comment: The Troponin units of report have been changed to meet the Chest Pain Accreditationrequirement, element EC5.M1l2. Troponin units are changed from pg/ml to ng/L. Also, the decimal is removed and results are in whole numbers.PERFORMED BY:[facility] HernandezH[place], [place] [phone] MEDICAL DIRECTORMIKE LIU M.D.Performed By: #### DIFF CBC, CK, PT, PTT, CMP, HS TROP ####[facility] [place] [address] USATroponin I.cardiac [Mass/volume] in Serum or Plasma by Detection limit <= 0.01 ng/ Ordered By: Francisco Duncan on 63-99-5018Kzsvlxma I.cardiac DL <= 0.01 ng/mL [Mass/Vol]Troponin I.cardiac [Mass/volume] in Serum or Plasma by Detection limit <= 0.01 ng/0-20[facility] HospitalComment on above:The Troponin units of report have been changed to meet the Chest Pain Accreditation requirement, element EC5.M1l2. Troponin units are changed from pg/ml to ng/L. Also, the decimal is removed and results are in whole numbers.Urea nitrogen [Mass/volume] in Serum or PlasmaOrdered By: Francisco Duncan on 16-65-8307Anqs nitrogen [Mass/Vol]Urea nitrogen [Mass/volume] in Serum or PlasmaHigh7-25 [facility] HospitalUrinalysison 91-17-0947Snscenpfqe (U)Clear NormalClearThe [facility] Physician GroupComment on above:Order Comment: Name Collection Type:: VoidedPerformed By: #### UA ####[address] [address] USABilirubin,UrineNegativeNormalNegative The [facility] Physician GroupComment on above:Order Comment: Name Collection Type:: VoidedPerformed By: #### UA ####[address] [address] USAColor (U)Light-YellowNormalYellowThe [facility] Hospital Physician GroupComment on above:Order Comment: Name Collection Type:: Voided Performed By: #### UA ####[address] [address] USAGlucose Ql (U)500 mg/dLHackensack University Medical Center Physician GroupComment on above:Order Comment: Name Collection Type:: Voided Performed By: #### UA ####[address] [address] USAKetones Ql (U)NegativeNormalNegativeAscension Sacred [facility] Coast Physician GroupComment on above:Order Comment: Name Collection Type:: Voided Performed By: #### UA ####[address] [address] USALeukocyte esterase Test strip Ql (U)NegativeNormal NegativeAscension Sacred [facility] Hospital Emerald Coast Physician GroupComment on above:Order Comment: Name Collection Type:: VoidedPerformed By: #### UA ####[address] [address] USANitrite,UrineNegativeNormalNegativeAscension [facility] Coast Physician GroupComment on above:Order Comment: Name Collection Type:: VoidedPerformed By: #### UA ####[address] [address] USAOccult Blood,UrineNegativeNormalNegativeThe [facility] Physician GroupComment on above:Order Comment: Name Collection Type:: VoidedResult Comment: PERFORMED BY:[address] [place], [place] [phone] MEDICAL DIRECTORMIKE LIU M.D.Performed By: #### UA ####[place] [address] [place] [address] USApH (U)5.5 [pH]Normal5.0-9.0The [facility] Physician GroupComment on above:Order Comment: Name Collection Type:: VoidedPerformed By: #### UA ####[address] [address] USAProtein,UrineNegativeNormalNegativeThe [facility] Physician GroupComment on above:Order Comment: Name Collection Type:: VoidedPerformed By: #### UA ####[address] [address] [facility] Specificy Perry,Urine1.365Vtbnkn4.001-1.030[facility] Comment on above:Order Comment: Name Collection Type:: VoidedPerformed By: #### UA ####[address] [address] [facility] Urobilinogen,UrineNormalNormalNormalThe [facility] Physician GroupComment on above:Order Comment: Name Collection Type:: VoidedPerformed By: #### UA ####[address] [address] [facility] Urobilinogen Test strip (U) [Mass/Vol]Ordered By: Francisco Duncan on 08-11-2024 Urobilinogen (U) [Mass/Vol]Urobilinogen [Mass/volume] in Urine by Test strip [facility] Rutan HospitalVit. B12/Folate Profileon 08-11-2024 Cobalamin (Vitamin B12) [Mass/Vol]129 pg/hWBsf799-179Qzz [facility] Physician GroupComment on above:Order Comment: Comment addPerformed By: #### TSH3, MG, OHQO69TQM, PHFX07DP ####[address] [place] [place] [address] DDPAtvkav18.0 ng/mLNormal>5.9The [facility] Physician GroupComment on above:Order Comment: Comment addResult Comment: Folate reference range: >5.9 ng/ml The WHO technical consultation on folate and vitamin b12 deficiencies has determined that folate concentrations less than 4 ng/ml are considered d eficient.Performed By: #### TSH3, MG, IUBW64KPE, VDFY17BM ####[facility] [place] [address] [facility] CENTERVitamin B12 ser/plasOrdered By: Marge Andino on 00-70-4434Okuwjxyte (Vitamin B12) [Mass/Vol]Vitamin B12 ser/qhzeCqn969-767QqpezwyleGalion HospitalVitamin D 25 Hydroxy Totalon 14-43-3996Kuhokva D 25 Hydroxy Total15.0 ng/eEDrx53-517Qrr [facility] Physician GroupComment on above:Order Comment: Comment addResult Comment: VITAMIN D STATUS 25(OH)VITAMIN D RANGE (ng/mL) Deficient <20 Insufficient 20 to <30 Sufficient 30 to 100 Reference: Ibrahima Reyes, Kasey LONG, et al. Evaluation,treatment, and prevention of vitamin D deficiency; an Endocrine Society clinical practice guideline.JCEM. 2010; 96(7):191-.PERFORMED BY:[address] [place], [place] [phone] MEDICAL DIRECTORMIKE CABAN M.D. Performed By: #### TSH3, MG, XTZR08ZXA, AHYO72YP ####[address] [place] [address] [facility] CENTERVitamin D+Metabolites [Mass/volume] in Serum or PlasmaOrdered By: Marge Andino on 78-37-4524Mammbsr D+Metabolites [Mass/Vol]Vitamin D+Metabolites [Mass/volume] in Serum or MeqgooHvy11-039 [facility] HospitalComment on above:VITAMIN D STATUS 25(OH)VITAMIN D RANGE (ng/mL) Deficient <20 Insufficient 20 to <34Shedunzwjy97 to 100Reference: Ibrahima Reyes, Kasey LONG, et al. Evaluation,treatment, and prevention of vitamin D deficiency; an Endocrine Society clinical practice guideline. JCEM. 2010; 96(7):1911-.WBC Auto (Bld) [#/Vol]Ordered By: Francisco Duncan on 18-31-9336KEO (Bld) [#/Vol]Leukocytes [#/volume] in Blood by Automated countHigh4.1-10.5FOhioHealth Grant Medical CenterX-ray reportOrdered By: Sudeep Lind on 33-14-1728Pmfda reportUNIVERSITY HOSPITALS [facility] [place] [address] [place], [place] [address] XRay Report Signed Patient: Myra Pickard SR MR#: [id number] : 1965 Acct:[id number] Age/Sex: 59 / M ADM Date: 5 Loc: Room: [address] [place] [address] Type: ADM IN Attending Dr: Kevon Viera [...] M.D.08/11/2024 10:06 AM Dictation Location: [place] [address] Transcribed By: [facility] 08/11/24 1006 Dictated By: Sudeep Lind DO 08/11/24 1006 Signed By: 08/11/24 1006 [facility] HospitalXR chest 1V portableon 92-24-7327IZ chest 1V portableAdventHealth Palm Coast Parkway Physician GroupaPTT in Platelet poor plasma by Coagulation assayOrdered By: Francisco Duncan on 92-59-3001oMFO Coag (PPP) [Time] Activated partial thromboplastin time (aPTT) in platelet poor plasma by coagulation a25.1-36.5FOhioHealth Grant Medical CenterComment on above:A hematocrit value greater than 55% may lead to inaccurate results in coagulation testing. Patientshaving hematocrit values >55% require a special collection tube for coagulation studies. Please contact the laboratory at [phone] for redraw instructions.pH Test strip (U)Ordered By: Francisco Duncan on 07-06-9085yS (U)pH of Urine by Test strip5.0-9.0[facility] HospitalUrology Office/Clinic Noteon 40-94-9823Ubuuden Office/Clinic NoteUrology Office/Clinic Note Chief Complaint Patient is here for scrotal pain HPI Staff Patient is here for f/u to [facility] ER 07/24/24 due to scrotal pain. [...] w Right BKA. 1. Orchitis (N45.2: Orchitis) [facility] ER 07/24/24 w sudden onset scrotal/groin [...] pain meds. 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 08/02/2024 09:33:52 I certify that I have reviewed the OARRS report and all PDMP information in thischart. Follow-up With When Contact Information [facility] Additional Instructions: Only if needed/new [...] [Hypertension] [place] (myocardial infarction) NIDDM Procedure/Surgical History BKA - [...] 1 cap(s), Oral, (more content not included)... [facility] HospitalComment on above:Result Comment: Electronically Signed By: MARYBEL VANG PA-C.br\Date and Time Signed: 08/07/2511:28 EST Basophils Auto (Bld) [#/Vol]on 23-38-6680Fgriasrcf (Bld) [#/Vol]Automated basophil count0.0-0.1FOhioHealth Grant Medical CenterBasophils/100 WBC Auto (Bld)on 72-09-6189Druykkxqs/100 WBC (Bld)Automated basophil %0.2-2.0[facility] HospitalEosinophils/100 WBC Auto (Bld)on 07-24-2024 Eosinophils/100 WBC (Bld)Automated eosinophil %0.9-7.0[facility] HospitalErythrocyte distribution width Auto (RBC) [Ratio]on 03-46-4518Veqakcqznds distribution width (RBC) [Ratio]Erythrocyte distribution width [Ratio] by Automated jrhtcWoaw96.0-15.0[facility] HospitalEstimated glomerular filtration rate (GFR) non- Americanon 10-93-1855LZV/1.73 sq M.predicted among non-blacks MDRD (S/P/Bld) [Vol rate/Area]Estimated glomerular filtration rate (GFR) non- AmericanLow>=60 mL/min/1.73m 2FOhioHealth Grant Medical CenterGlobulin Calc (S) [Mass/Vol]on 83-70-3925Bxzievsl (S) [Mass/Vol]Serum globulin measurement by calculation (mass/volume)[facility] HospitalHematocrit Auto (Bld) [Volume fraction]on 07-24-2024 Hematocrit (Bld) [Volume fraction]Hematocrit [Volume Fraction] of Blood by Automated weilvStu85.0-54.0[facility] HospitalHemoglobin [Mass/volume] in Bloodon 92-79-9733Angcecngfh (Bld) [Mass/Vol]Hemoglobin [Mass/volume] in LrngwFqu30.0-18.0[facility] HospitalLaboratory - Chemistry and Chemistry - challengeon 69-19-1387Osdfwnm [Mass/Vol]3.3 g/dLLow 3.4-5.0[facility] HospitalALP [Catalytic activity/Vol]111 U/L 46-116[facility] HospitalALT [Catalytic activity/Vol]16 U/L16-63 [facility] HospitalAST [Catalytic activity/Vol]11 U/TBrn58-30 [facility] HospitalBilirubin [Mass/Vol]0.4 mg/dL0.2-1.0[facility] HospitalCalcium [Mass/Vol]8.4 mg/dLLow8.5-10.1FOhioHealth Grant Medical CenterChloride [Moles/Vol]102 mmol/E44-609DxwxymuknGalion HospitalCO2 [Moles/Vol]26.3 mmol/L21.0-32.0[facility] Creatinine [Mass/Vol]2.28 mg/dLHigh0.70-1.30[facility] GFR/1.73 sq M.predicted MDRD (S/P/Bld) [Vol rate/Area]36 mL/min/{1.73_m2}Low>=60 mL/min/1.73m 2FOhioHealth Grant Medical CenterGlucose [Mass/Vol]177 mg/dLHigh 74-106[facility] HospitalLactate [Moles/Vol]1.8 mmol/L0.4-2.0 [facility] HospitalPotassium [Moles/Vol]3.4 mmol/LLow3.5-5.1 [facility] HospitalProtein [Mass/Vol]7.0 g/dL6.4-8.2FMary Rutan Hospitalodium [Moles/Vol]139 mmol/L123-121ElaufcjmsGalion HospitalUrea nitrogen [Mass/Vol]22.0 mg/dLHigh7.0-18.0[facility] HospitalUrea nitrogen/Creatinine [Mass ratio]9.6 mg/mgGalion HospitalLaboratory - Hematology and Cell countson 81-48-8361Fgwenlxn granulocytes/100 WBC (Bld)0.3 %0.0-0.5FOhioHealth Grant Medical Center Leukocytes [#/volume] corrected for nucleated erythrocytes in Blood by Automated counon 47-46-9825WTW corrected for nucl RBC Auto (Bld) [#/Vol]Leukocytes [#/volume] corrected for nucleated erythrocytes in Blood by Automated coun 4.0-11.0[facility] HospitalLymphocytes Auto (Bld) [#/Vol]on 06-23-0759Qdpyivrrjuk (Bld) [#/Vol]Lymphocytes [#/volume] in Blood by Automated count1.2-3.8[facility] HospitalLymphocytes/100 WBC Auto (Bld)on 17-36-5791Kausaeaweuk/100 WBC (Bld)Lymphocytes/100 leukocytes in Blood by Automated count20.5-60.0The [facility]vue HospitalH Auto (RBC) [Entitic mass]on 17-87-2586SEM (RBC) [Entitic mass]MCH [Entitic mass] by Automated count Low25.9-34.0[facility] HospitalMCHC Auto (RBC) [Mass/Vol]on 49-08-9721UWBU (RBC) [Mass/Vol]MCHC [Mass/volume] by Automated ofekiXix40.9-35.2 The [facility]vue HospitalV Auto (RBC) [Entitic vol]on 40-16-8448HCA (RBC) [Entitic vol]MCV [Entitic volume] by Automated gfromXfr19.0-94.0[facility] HospitalMonocytes Auto (Bld) [#/Vol]on 49-63-6932Ykhoblxsg (Bld) [#/Vol]Automated blood monocyte countHigh0.3-0.8[facility] HospitalMonocytes/100 WBC Auto (Bld)on 87-19-1255Sozduhecg/100 WBC (Bld)Automated monocyte %1.7-12.0[facility] HospitalNeutrophils Auto (Bld) [#/Vol]on 90-45-7610Vjzmsekehnu (Bld) [#/Vol]Neutrophils [#/volume] in Blood by Automated count1.4-6.5FOhioHealth Grant Medical CenterNeutrophils/100 WBC Auto (Bld)on 65-67-4652Wuufufprnko/100 WBC (Bld)Automated neutrophil %43.0-75.0 [facility] HospitalNo Panel Informationon 99-32-5275Rccudyendkf # (Auto)0.4 10 3/uL0.0-0.7FOhioHealth Grant Medical CenterImmature Granulocyte # (Auto)0.03 10 3/uL0.00-0.03[facility] HospitalPlatelet mean volume Auto (Bld) [Entitic vol]on 09-51-2400Nabnpbpm mean volume (Bld) [Entitic vol] Platelet mean volume [Entitic volume] in Blood by Automated count9.5-13.5 [facility] HospitalPlatelets Auto (Bld) [#/Vol]on 07-24-2024 Platelets (Bld) [#/Vol]Platelets [#/volume] in Blood by Automated -693 [facility] HospitalRBC Auto (Bld) [#/Vol]on 67-76-9942QFH (Bld) [#/Vol]Erythrocytes [#/volume] in Blood by Automated count4.70-6.10[facility] Centererum or plasma albumin/globulin mass ratioon 07-24-2024 Albumin/Globulin [Mass ratio]Serum or plasma albumin/globulin mass ratio [facility] Centererum or plasma anion gap determinationon 04-85-7335Glvhr gap [Moles/Vol]Serum or plasma anion gap determinationGalion HospitalPSA Totalon 54-54-7492Edaspauy specific Ag [Mass/Vol]1.0 ng/mLNormal0.1-3.5[facility] Medical CenterComment on above:Result Comment: The concentration of PSA determined by different manufacturers can vary due to differences in assay methods and reagent specificity. Values obtained from different assay methods cannot be used interchangeably. The methodology used for this result was chemiluminescence using [employer]'s Access Hybritech PSA reagent.Performed By: #### [id number] #### [facility] [address] [place], [place] [address]Jufolkrhup Visit Summaryon 47-03-6296Gwdmfowbew Visit Summary Ambulatory Visit Summary MYRA PICKARD [...] [facility] [address], [place] [phone] Medications What How Much When Instructions Unchanged tamsulosin (tamsulosin 0.4 mg Cap) 1 Capsules By Mouth 2 times a day Pickup at [facility]/pharmacy #1694 Unchanged albuterol (ProAir HFA) Inhalation Every 6 [...] questions or concerns Unchanged (more content not included)...[facility] HospitalUrology Office/Clinic Noteon 46-57-3163Mgplfqm Office/Clinic NoteUrology Office/Clinic Note Chief Complaint 1 [...] urination. -Cont Tamsulosin bid. [facility]ills sent to [facility]. 2. Screening PSA (prostate specific antigen) (Z12.5: [...] [facility] [address], [place] [facility] [place] [id number] Additional Instructions: 1 yr Patient Education Benign [...] [Hypertension] [place] (myocardial infarction) NIDDM Procedure/Surgical History BKA - [...] tab(s), Oral, Daily me (more content not included)...[facility] HospitalComment on above:Result Comment: Electronically Signed By: Yeyo ROWE MD\.br\Date and Time Signed: 05/27/24 16:02 EST\.br\Electronically Co-Signed By: Sharri Mora\.br\Date and Time Co-Signed: 05/27/24 16:01 ESTGlucose Glucometer (dC) [Mass/Vol]Ordered By: Mike Burleson on 83-98-5143Dzlrndl [Mass/Vol]Capillary blood glucose measurement by glucometer (mass/volume)[facility] HospitalComment on above:Random Glucose Reference Range is dependent on time and content of last meal. Glucose of more than 200 mg/dL in a nonstressed, ambulatory subject supports the diagnosis of Diabetes Mellitus.Glucose Poct Glucometerson 95-80-7104Fhzmdxm7Won3: Cleaned [facility] Physician GroupComment on above:Result Comment: PERFORMED BY:[facility] [place], [place] [phone] MEDICAL DIRECTORMIKE CABAN M.D.Performed By: #### GLULS ####Point of Care testing,Glucose [Mass/Vol]212 mg/dLNoThe Outer Banks Hospital Physician GroupComment on above:Result Comment: Random Glucose Reference Range is dependent on time and content of last meal. Glucose of more than 200 mg/dL in a nonstressed, ambulatory subject supports the diagnosis of Diabetes Mellitus.Performed By: #### GLULS ####Point of Care testing,Guy 71-98-9077MOgpfjeIco Firelands Physician GroupNo Panel InformationOrdered By: Mike Burleson on 04-23-2024 Bedside Glucose CommentGlu2: cleaned [facility] HospitalHbA1c HPLC (Bld) [Mass fraction]on 59-80-6466GxS7q (Bld) [Mass fraction]Hemoglobin A1c/Hemoglobin.total in Blood by [facility] HospitalAlanine aminotransferase [Enzymatic activity/volume] in Serum or PlasmaOrdered By: João Powell on 94-21-0401ACS [Catalytic activity/Vol]38 U/LNormalGalion HospitalComment on above:Performed By: #### CMP, PHOS, CBC, MG ####[facility] [place] [address] USAALT [Catalytic activity/Vol]Alanine aminotransferase [Enzymatic activity/volume] in Serum or PlasmaGalion HospitalAlbumin [Mass/volume] in Serum or Plasma by Bromocresol green (BCG) dye binding methoOrdered By: João Powell on 05-04-9135Ruhvfhd BCG dye [Mass/Vol]3.6 g/dL3.5-5.7FOhioHealth Grant Medical CenterAlbumin BCG dye [Mass/Vol]Albumin [Mass/volume] in Serum or Plasma by Bromocresol green (BCG) dye binding metho3.5-5.7FOhioHealth Grant Medical CenterAlkaline phosphatase [Enzymatic activity/volume] in Serum or PlasmaOrdered By: João Powell on 43-26-4822LFN [Catalytic activity/Vol]313 U/INoie41-811 [facility] HospitalComment on above:Performed By: #### CMP, PHOS, CBC, MG ####[address] [address] USAALP [Catalytic activity/Vol]Alkaline phosphatase [Enzymatic activity/volume] in Serum or CnahvxUkes66-774PxvtxuxjaGalion HospitalAspartate aminotransferase [Enzymatic activity/volume] in Serum or PlasmaOrdered By: João Powell on 46-22-3532JNM [Catalytic activity/Vol]28 U/ETxqqbf70-55Fdfuqbfvo42 Wilson StreetComment on above:Performed By: #### CMP, PHOS, CBC, MG ####[address] [address] USAAST [Catalytic activity/Vol]Aspartate aminotransferase [Enzymatic activity/volume] in Serum or Tibqsg88-40Jjgscvngq[address] [place], [place] [address]Automated basophil % Ordered By: João Powell on 36-33-5628Anokgwbxj/100 WBC (Bld)1.2 %Normal. [facility] HospitalComment on above:Performed By: #### CMP, PHOS, CBC, MG ####[address] [address] USAAutomated basophil countOrdered By: João Powell on 70-00-5654Oqomcttqh (Bld) [#/Vol]0.1 10*3/uLNormal0.0-0.2FOhioHealth Grant Medical CenterComment on above:Result Comment: PERFORMED BY:[address] [place], [place] [phone] MEDICAL DIRECTORCLIFFORD LOBATO M.D. Performed By: #### CMP, PHOS, CBC, MG ####[address] [address] USAAutomated blood monocyte countOrdered By: João Powell on 01-73-4671Ayrzoqvht (Bld) [#/Vol]0.9 10*3/uLHigh0.0-0.8[facility] HospitalComment on above:Performed By: #### CMP, PHOS, CBC, MG ####[place] [address] Automated eosinophil %Ordered By: João Powell on 79-70-1786Wzxbvadxiou/100 WBC (Bld)3.0 %Normal.[facility] HospitalComment on above:Performed By: #### CMP, PHOS, CBC, MG ####[place] [address] USAAutomated eosinophil countOrdered By: João Powell on 50-89-2216Kqurydzinoo (Bld) [#/Vol]0.2 10*3/uLNormal0.0-0.45[facility] HospitalComtrinity health grand haven hospital on above:Performed By: #### CMP, PHOS, CBC, MG ####[address] Automated monocyte %Ordered By: João Powell on 46-28-3499Nimthnxvy/100 WBC (Bld)14.4 %Normal.[facility] HospitalComment on above:Performed By: #### CMP, PHOS, CBC, MG ####[place] [address] USAAutomated neutrophil %Ordered By: João Powell on 41-75-0360Rwpxvcdviho/100 WBC (Bld)66.7 %Normal.[facility] HospitalComment on above:Performed By: #### CMP, PHOS, CBC, MG ####[place] [address] USABasophils Auto (Bld) [#/Vol]Ordered By: João Powell on 11-13-9461Axakxnqzf (Bld) [#/Vol]Automated basophil count0.0-0.2FOhioHealth Grant Medical CenterBasophils/100 WBC Auto (Bld)Ordered By: João Powell on 33-22-3684Pcyzdxgjo/100 WBC (Bld)Automated basophil %.[facility] HospitalBilirubin.total [Mass/volume] in Serum or PlasmaOrdered By: João Powell on 48-97-3166Ijhipacdc [Mass/Vol]0.9 mg/dLNormal0.3-1.0[facility] HospitalComment on above:Performed By: #### CMP, PHOS, CBC, MG ####[facility] [address] [place] [address] USABilirubin [Mass/Vol]Bilirubin.total [Mass/volume] in Serum or Plasma0.3-1.0[facility] HospitalCalcium [Mass/volume] in Serum or PlasmaOrdered By: João Powell on 46-04-5006Mcqbawq [Mass/Vol]9.1 mg/dLNormal8.6-10.3FOhioHealth Grant Medical CenterComment on above:Performed By: #### CMP, PHOS, CBC, MG ####[facility] [place] [address] USACalcium [Mass/Vol]Calcium [Mass/volume] in Serum or Plasma8.6-10.3FOhioHealth Grant Medical CenterCapillary blood glucose measurement by glucometer (mass/volume)Ordered By: Remberto Ervin on 03-13-2024 Glucose [Mass/Vol]155 mg/dLNoOhio State Harding HospitalComment on above:Random Glucose Reference Range is dependent on time and content of last meal. Glucose of more than 200 mg/dL in a nonstressed, ambulatory subject supports the diagnosis of Diabetes Mellitus.Result Comment: Random Glucose Reference Range is dependent on time and content of last meal. Glucose of more than 200 mg/dL in a nonstressed, ambulatory subject supports the diagnosis of Diabetes Mellitus.PERFORMED BY:[address] [place], [place] [phone] MEDICAL DIRECTORCLIFFORD LOBATO M.D. Performed By: #### GLULS ####Point of Care testing,Carbon dioxide, total [Moles/volume] in Serum or PlasmaOrdered By: João Powell on 35-11-8035DF9 [Moles/Vol]23.9 mmol/MHvgopj18.0-31.0[facility] HospitalComment on above:Performed By: #### CMP, PHOS, CBC, MG ####[address] [place] [address] USACO2 [Moles/Vol]Carbon dioxide, total [Moles/volume] in Serum or Rqmslg52.0-31.0[facility] Chloride [Moles/volume] in Serum or PlasmaOrdered By: João Powell on 03-13-2024 Chloride [Moles/Vol]101 mmol/ZUnulzy77-271Twwzcoesx[address] Comment on above:Performed By: #### CMP, PHOS, CBC, MG ####[address] [place] [address] USAChloride [Moles/Vol]Chloride [Moles/volume] in Serum or Rkcaxa74-991Fcdqwbrnq[address] [place], [place] [address]Complete Blood Count Auto Diffon 11-69-9875Uhwg Corpuscular HGB Conc31.7 g/dLLow 32.5-35.6[facility] Physician [facility] HospitalComment on above:Performed By: #### CMP, PHOS, CBC, MG ####[id number] USANRBC%0.1 /100{WBC}Normal0-0.5[facility] Physician [facility] HospitalComment on above:Performed By: #### CMP, PHOS, CBC, MG ####[address] [address] USAComprehensive Metabolic Panelon 43-08-5477Lbdnrww [Mass/Vol]3.6 g/dLNormal3.5-5.7[facility] Physician [facility] Comment on above:Performed By: #### CMP, PHOS, CBC, MG ####[address] [address] USACreatinine Clr Calc Pharmacy 56.79NormalThe [facility] Physician [facility] HospitalComment on above:Performed By: #### CMP, PHOS, CBC, MG ####[address] [address] USAGFR/1.73 sq M.predicted MDRD (S/P/Bld) [Vol rate/Area]53.205 mL/min/{1.73_m2}NormalThe [facility] Physician GroupComment on above:Performed By: #### CMP, PHOS, CBC, MG ####[facility] [address] [place] [address] USACreatinine [Mass/volume] in Serum or PlasmaOrdered By: João Powell on 78-92-5423Ofymjrvxlt [Mass/Vol]1.51 mg/dLHigh0.70-1.30 [facility] HospitalComment on above:Performed By: #### CMP, PHOS, CBC, MG ####[facility] [address] [place] [address] USACreatinine [Mass/Vol]Creatinine [Mass/volume] in Serum or PlasmaHigh0.70-1.30 [facility] HospitalEosinophils Auto (Bld) [#/Vol]Ordered By: João Powell on 42-93-4524Hpjztzofnsv (Bld) [#/Vol]Automated eosinophil count 0.0-0.45[facility] HospitalEosinophils/100 WBC Auto (Bld)Ordered By: João Powell on 12-72-0805Rhttkyfdejc/100 WBC (Bld)Automated eosinophil %. [facility] HospitalErythrocyte distribution width Auto (RBC) [Ratio]Ordered By: João Powell on 58-68-1612Dckkidvmgie distribution width (RBC) [Ratio]Erythrocyte distribution width [Ratio] by Automated countHigh 12.0-14.8[facility] HospitalErythrocyte distribution width [Ratio] by Automated countOrdered By: João Powell on 23-59-7779Ogaffnakhmg distribution width (RBC) [Ratio]24.5 %High12.0-14.8[facility] HospitalComment on above:Performed By: #### CMP, PHOS, CBC, MG ####[address] [place] [address] USAErythrocytes [#/volume] in Blood by Automated countOrdered By: João Powell on 52-11-6809QRC (Bld) [#/Vol]4.12 10*6/uLNormal3.90-5.60[facility] Regional Medical CenterComment on above:Performed By: #### CMP, PHOS, CBC, MG ####[facility] [place] [address] USAGlobulin Calc (S) [Mass/Vol]Ordered By: João Powell on 84-08-9009Iwwplndz (S) [Mass/Vol]Serum globulin measurement by calculation (mass/volume)[facility] HospitalGlucose Glucometer (BldC) [Mass/Vol]Ordered By: Remberto Ervin on 73-08-8715Ogfyfzd [Mass/Vol] Capillary blood glucose measurement by glucometer (mass/volume)[facility]ion HospitalComment on above:Random Glucose Reference Range is dependent on time and content of last meal. Glucose of more than 200 mg/dL in a nonstressed, ambulatory subject supports the diagnosis of Diabetes Mellitus. Glucose Poct Glucometerson 92-67-5197Tykzlyl [Mass/Vol]162 mg/dLNoThe Outer Banks Hospital Physician GroupComment on above:Result Comment: Random Glucose Reference Range is dependent on time and content of last meal. Glucose of more than 200 mg/dL in a nonstressed, ambulatory subject supports the diagnosis of Diabetes Mellitus.PERFORMED BY:[address] [place], [place] [phone] MEDICAL DIRECTORCLIFFORD LOBATO M.D. Performed By: #### GLULS ####Point of Care testing,Glucose [Mass/volume] in Serum or PlasmaOrdered By: João Powell on 51-75-8305Gezukoh [Mass/Vol]149 mg/dL Nyxs15-944MaoohkyieGalion HospitalComment on above:ADA recommended reference rangeRandom Glucose [...] rangePerformed By: #### CMP, PHOS, CBC, MG ####[facility] [place] [address] USAGlucose [Mass/Vol]Glucose [Mass/volume] in Serum or IljmfxHlqf03-308SntuedomcGalion HospitalComment on above:ADA recommended reference rangeRandom Glucose Reference Range is dependent on time and content of last meal. Glucose of more than 200 mg/dL in a nonstressed, ambulatory subject supports the diagnosisof Diabetes Mellitus.Hematocrit Auto (Bld) [Volume fraction]Ordered By: João Powell on 89-01-9489Asafskrppg (Bld) [Volume fraction]Hematocrit [Volume Fraction] of Blood by Automated countLow 38.8-50.0[facility] HospitalHematocrit [Volume Fraction] of Blood by Automated countOrdered By: João Powell on 90-03-7843Omjbphkdhw (Bld) [Volume fraction]29.9 %Low38.8-50.0[facility] HospitalComment on above: Performed By: #### CMP, PHOS, CBC, MG ####[facility] [address] [place] [address] USAHemoglobin [Mass/volume] in BloodOrdered By: João Powell on 99-36-4969Ggxdqnrzjq (Bld) [Mass/Vol]9.5 g/dLLow13.0-17.0 [facility] HospitalComment on above:Performed By: #### CMP, PHOS, CBC, MG ####[facility] [address] [place] [address] USAHemoglobin (Bld) [Mass/Vol]Hemoglobin [Mass/volume] in LuymgOzw17.0-17.0 [facility] HospitalLeukocytes [#/volume] corrected for nucleated erythrocytes in Blood by Automated counOrdered By: João Powell on 09-22-0286SXF corrected for nucl RBC Auto (Bld) [#/Vol]6.0 10*3/uL4.1-10.5FOhioHealth Grant Medical CenterWBC corrected for nucl RBC Auto (Bld) [#/Vol]Leukocytes [#/volume] corrected for nucleated erythrocytes in Blood by Automated coun4.1-10.5 [facility] HospitalLeukocytes [#/volume] in Blood by Automated countOrdered By: João Powell on 84-19-7828XFR (Bld) [#/Vol]6.0 10*3/uLNormal 4.1-10.5FOhioHealth Grant Medical CenterComment on above:Performed By: #### CMP, PHOS, CBC, MG ####[address] [place] [address] USALymphocytes Auto (Bld) [#/Vol]Ordered By: João Powell on 03-13-2024 Lymphocytes (Bld) [#/Vol]Lymphocytes [#/volume] in Blood by Automated countLow 1.00-4.8[facility] HospitalLymphocytes [#/volume] in Blood by Automated countOrdered By: João Powell on 45-32-3852Rmsmdxtaaci (Bld) [#/Vol] 0.9 10*3/uLLow1.00-4.8[facility] HospitalComment on above: Performed By: #### CMP, PHOS, CBC, MG ####[address] USALymphocytes/100 WBC Auto (Bld)Ordered By: João Powell on 31-58-1534Enkiweggboc/100 WBC (Bld)Lymphocytes/100 leukocytes in Blood by Automated count.[facility] HospitalLymphocytes/100 leukocytes in Blood by Automated countOrdered By: João Powell on 03-13-2024 Lymphocytes/100 WBC (Bld)14.7 %Normal.[facility] HospitalComment on above:Performed By: #### CMP, PHOS, CBC, MG ####[address] [facility] Auto (RBC) [Entitic mass]Ordered By: João Powell on 46-91-2098SKD (RBC) [Entitic mass]MCH [Entitic mass] by Automated jhjmwZtz11.5-35.2FNationwide Children's Hospital [Entitic mass] by Automated countOrdered By: João Powell on 70-54-3621DCW (RBC) [Entitic mass] 23.0 pgLow27.5-35.2FOhioHealth Grant Medical CenterComment on above:Performed By: #### CMP, PHOS, CBC, MG ####[address] [address] [facility] Auto (RBC) [Mass/Vol]Ordered By: João Powell on 99-17-6398QREK (RBC) [Mass/Vol]31.7 g/dLLow32.5-35.6FWright-Patterson Medical CenterHC (RBC) [Mass/Vol]MCHC [Mass/volume] by Automated countLow 32.5-35.6FSelect Medical Specialty Hospital - [facility] Auto (RBC) [Entitic vol]Ordered By: João Powell on 30-70-8311RLR (RBC) [Entitic vol]MCV [Entitic volume] by Automated qiqflUja99.5-101The Bellevue HospitalV [Entitic volume] by Automated countOrdered By: João Powell on 05-81-2948VLU (RBC) [Entitic vol] 72.6 [address]LLow[address] [place], [place] [address]Comment on above:Performed By: #### CMP, PHOS, CBC, MG ####[address] [address] USAMagnesium [Mass/volume] in Serum or PlasmaOrdered By: João Powell on 76-29-7078Qtbjucric [Mass/Vol]1.7 mg/dLLow1.9-2.7FOhioHealth Grant Medical CenterComment on above:Result Comment: PERFORMED BY:[address] [place], [place] [phone] MEDICAL BRISA LOBATO M.D.Performed By: #### CMP, PHOS, CBC, MG ####[address] [address] [place] Magnesium [Mass/Vol]Magnesium [Mass/volume] in Serum or PlasmaLow1.9-2.7 [facility] HospitalMonocytes Auto (Bld) [#/Vol]Ordered By: João Powell on 21-18-6812Pcrbiznfz (Bld) [#/Vol]Automated blood monocyte countHigh 0.0-0.8[facility] HospitalMonocytes/100 WBC Auto (Bld)Ordered By: João Powell on 79-16-1482Rjmjwcwvt/100 WBC (Bld)Automated monocyte %.[facility] HospitalNeutrophils Auto (Bld) [#/Vol]Ordered By: João Powell on 65-98-3381Azaeegkuiuc (Bld) [#/Vol]Neutrophils [#/volume] in Blood by Automated count1.8-7.7FOhioHealth Grant Medical CenterNeutrophils [#/volume] in Blood by Automated countOrdered By: João Powell on 15-72-0717Ndpuxzkozou (Bld) [#/Vol] 4.0 10*3/uLNormal1.8-7.7FOhioHealth Grant Medical CenterComment on above: Performed By: #### CMP, PHOS, CBC, MG ####[facility] [address] [place] [address] USANeutrophils/100 WBC Auto (Bld)Ordered By: João Powell on 81-06-5933Flszdubxsoi/100 WBC (Bld)Automated neutrophil %. [facility] HospitalNo Panel InformationOrdered By: João Powell on 94-38-4695Gtcyctfiz GFR (CKD-EPI)53.205 mL/[facility] Creatinine Clearance (Chem56.79[facility]53.205 mL/[facility]56.79[facility] Nucleated erythrocytes [Presence] in Blood by Automated countOrdered By: João Powell on 41-31-9886Cqqwrghjj RBC Auto Ql (Bld)0.1 /100{WBC}0-0.5FOhioHealth Grant Medical CenterNucleated RBC Auto Ql (Bld)Nucleated erythrocytes [Presence] in Blood by Automated count0-0.5FOhioHealth Grant Medical Center Phosphate [Mass/volume] in Serum or PlasmaOrdered By: João Powell on 03-13-2024 Phosphate [Mass/Vol]3.0 mg/dLNormal2.5-4.5FOhioHealth Grant Medical Center Comment on above:Performed By: #### CMP, PHOS, CBC, MG ####[address] [address] USAPhosphate [Mass/Vol]Phosphate [Mass/volume] in Serum or Plasma2.5-4.5FOhioHealth Grant Medical CenterPlatelet mean volume Auto (Bld) [Entitic vol]Ordered By: João Powell on 03-13-2024 Platelet mean volume (Bld) [Entitic vol]Platelet mean volume [Entitic volume] in Blood by Automated count6.6-10.1FOhioHealth Grant Medical CenterPlatelet mean volume [Entitic volume] in Blood by Automated countOrdered By: João Powell on 32-15-7352Kdaqutay mean volume (Bld) [Entitic vol]8.9 fLNormal6.6-10.1FOhioHealth Grant Medical CenterComment on above:Performed By: #### CMP, PHOS, CBC, MG ####[address] [place] Platelets Auto (Bld) [#/Vol]Ordered By: João Powell on 63-79-3496Wurathejt (Bld) [#/Vol]Platelets [#/volume] in Blood by Automated csjhy114-608LcxrxfowtGalion HospitalPlatelets [#/volume] in Blood by Automated countOrdered By: João Powell on 62-33-0395Vvzmmevkc (Bld) [#/Vol]197 10*3/uDAlerfl435-086 [facility] HospitalComment on above:Performed By: #### CMP, PHOS, CBC, MG ####[address] USAPotassium [Moles/volume] in Serum or PlasmaOrdered By: João Powell on 52-57-7528Udhbisqub [Moles/Vol]3.9 mmol/LNormal3.5-5.1FOhioHealth Grant Medical CenterComment on above:Performed By: #### CMP, PHOS, CBC, MG ####[address] [address] USAPotassium [Moles/Vol] Potassium [Moles/volume] in Serum or Plasma3.5-5.1FOhioHealth Grant Medical CenterProtein [Mass/volume] in Serum or PlasmaOrdered By: João Powell on 62-57-7929Pnfgopx [Mass/Vol]7.5 g/dLNormal6.4-8.9[facility] HospitalComment on above:Performed By: #### CMP, PHOS, CBC, MG ####[address] [place] [address] USAProtein [Mass/Vol] Protein [Mass/volume] in Serum or Plasma6.4-8.9[facility] RBC Auto (Bld) [#/Vol]Ordered By: João Powell on 11-44-2414USU (Bld) [#/Vol] Erythrocytes [#/volume] in Blood by Automated count3.90-5.60[facility] Medical Centererum globulin measurement by calculation (mass/volume)Ordered By: João Powell on 58-33-8870Hfjsdoku (S) [Mass/Vol]3.9 g/dLNoOhio State Harding HospitalComment on above:Performed By: #### CMP, PHOS, CBC, MG ####[address] [address] USASerum or plasma albumin/globulin mass ratioOrdered By: João Powell on 03-13-2024 Albumin/Globulin [Mass ratio]0.9 {ratio}NormalGalion Hospital Comment on above:Performed By: #### CMP, PHOS, CBC, MG ####[address] [address] USAAlbumin/Globulin [Mass ratio] Serum or plasma albumin/globulin mass ratioGalion Hospital Serum or plasma anion gap determinationOrdered By: João Powell on 03-13-2024 Anion gap [Moles/Vol]13.0 mmol/LNormal6.0-15.0[facility] Comment on above:Performed By: #### CMP, PHOS, CBC, MG ####[address] [address] USAAnion gap [Moles/Vol]Serum or plasma anion gap determination6.0-15.0[facility] Medical Centerodium [Moles/volume] in Serum or PlasmaOrdered By: João Powell on 68-12-3617Npdiyz [Moles/Vol]134 mmol/XQzu783-480Flatzghuz[address] [place], [place] [address]Comment on above:Performed By: #### CMP, PHOS, CBC, MG ####[address] [place] [address] USASodium [Moles/Vol]Sodium [Moles/volume] in Serum or GzceevOab092-264EwcyzpmmuGalion HospitalUrea nitrogen [Mass/volume] in Serum or PlasmaOrdered By: João Powell on 03-13-2024 Urea nitrogen [Mass/Vol]18 mg/dLNormalGalion Hospital Comment on above:Performed By: #### CMP, PHOS, CBC, MG ####[address] [address] USAUrea nitrogen [Mass/Vol]Urea nitrogen [Mass/volume] in Serum or Plasma12-27[facility] WBC Auto (Bld) [#/Vol]Ordered By: João Powell on 77-50-7292IVX (Bld) [#/Vol] Leukocytes [#/volume] in Blood by Automated count4.1-10.5FOhioHealth Grant Medical CenterComplete Blood Count Auto Diffon 71-84-9019Ewhqmsuuo (Bld) [#/Vol] 0.0 10*3/uLNormal0.0-0.2[facility] Physician GroupComment on above:Result Comment: PERFORMED BY:[address] [place], [place] [phone] MEDICAL DIRECTORCLIFFORD LOBATO M.D.Performed By: #### CBC, CMP, PHOS, MG ####[address] [place] [address] USABasophils/100 WBC (Bld)0.8 %Normal.The [facility] Physician GroupComment on above:Performed By: #### CBC, CMP, PHOS, MG ####[place] [address] [place] Eosinophils (Bld) [#/Vol]0.1 10*3/uLNormal0.0-0.45The [facility] Group Comment on above:Performed By: #### CBC, CMP, PHOS, MG ####[place] [address] USAEosinophils/100 WBC (Bld)1.7 % Normal.The [facility] Physician GroupComment on above:Performed By: #### CBC, CMP, PHOS, MG ####[place] [address] USAErythrocyte distribution width (RBC) [Ratio]24.0 %High12.0-14.8The [facility] Physician GroupComment on above:Performed By: #### CBC, CMP, PHOS, MG ####[address] Hematocrit (Bld) [Volume fraction]28.0 %Low38.8-50.0The [facility] Physician GroupComment on above:Performed By: #### CBC, CMP, PHOS, MG ####[place] [address] USAHemoglobin (Bld) [Mass/Vol]9.0 g/dLLow13.0-17.0The [facility] Physician GroupComment on above: Performed By: #### CBC, CMP, PHOS, MG ####[place] [address] USALymphocytes (Bld) [#/Vol]0.7 10*3/uLLow 1.00-4.8The [facility] Physician GroupComment on above:Performed By: #### CBC, CMP, PHOS, MG ####[place] [address] USALymphocytes/100 WBC (Bld)12.6 %Normal.The [facility] Comment on above:Performed By: #### CBC, CMP, PHOS, MG ####[place] [address] USAMCH (RBC) [Entitic mass]23.1 pgLow27.5-35.2The [facility] Physician GroupComment on above:Performed By: #### CBC, CMP, PHOS, MG ####[address] (RBC) [Entitic vol]72.1 fLLow83.5-101The [facility] Physician GroupComment on above:Performed By: #### CBC, CMP, PHOS, MG ####[place] [address] USAMean Corpuscular HGB Conc32.1 g/dLLow32.5-35.6The [facility] Physician GroupComment on above:Performed By: #### CBC, CMP, PHOS, MG ####[place] [address] USAMonocytes (Bld) [#/Vol]1.0 10*3/uLHigh0.0-0.8The [facility] Physician GroupComment on above:Performed By: #### CBC, CMP, PHOS, MG ####[place] [address] [place] Monocytes/100 WBC (Bld)16.2 %Normal.The [facility] Physician GroupComment on above:Performed By: #### CBC, CMP, PHOS, MG ####[place] [address] USANeutrophils (Bld) [#/Vol]4.0 10*3/uL Normal1.8-7.7The [facility] Physician GroupComment on above:Performed By: #### CBC, CMP, PHOS, MG ####[place] [address] USANeutrophils/100 WBC (Bld)68.7 %Normal.The [facility] Comment on above:Performed By: #### CBC, CMP, PHOS, MG ####[place] [address] USANRBC%0.1 /100{WBC}Normal0-0.5 The [facility] Physician GroupComment on above:Performed By: #### CBC, CMP, PHOS, MG ####[address] Platelet mean volume (Bld) [Entitic vol]8.8 fLNormal6.6-10.1The [facility] Physician GroupComment on above:Performed By: #### CBC, CMP, PHOS, MG ####[address] Platelets (Bld) [#/Vol]191 10*3/lOTmaxnc441-941Ple [facility] Physician Group Comment on above:Performed By: #### CBC, CMP, PHOS, MG ####[place] [address] USARBC (Bld) [#/Vol]3.89 10*6/uL Low3.90-5.60The [facility] Physician GroupComment on above:Performed By: #### CBC, CMP, PHOS, MG ####[place] [address] USAWBC (Bld) [#/Vol]5.9 10*3/uLNormal4.1-10.5The [facility] Physician GroupComment on above:Performed By: #### CBC, CMP, PHOS, MG ####[address]Comprehensive Metabolic Panelon 67-81-9026Ynqnnov [Mass/Vol]3.5 g/dLNormal3.5-5.7The [facility] Physician GroupComment on above:Performed By: #### CBC, CMP, PHOS, MG ####[address] Albumin/Globulin [Mass ratio]0.9 {ratio}NormalThe [facility] Physician [facility] Comment on above:Performed By: #### CBC, CMP, PHOS, MG ####[place] [address] USAALP [Catalytic activity/Vol] 328 U/ZQgkv19-443Icn [facility] Physician GroupComment on above:Performed By: #### CBC, CMP, PHOS, MG ####[address] [address] USAALT [Catalytic activity/Vol]46 U/LNormal7-52The [facility] Physician GroupComment on above:Performed By: #### CBC, CMP, PHOS, MG ####[place] [address] USAAnion gap [Moles/Vol]14.2 mmol/LNormal6.0-15.0The [facility] Physician GroupComment on above:Performed By: #### CBC, CMP, PHOS, MG ####[place] [address] USAAST [Catalytic activity/Vol]34 U/L Uefppw21-65Vya [facility] Physician GroupComment on above:Performed By: #### CBC, CMP, PHOS, MG ####[place] [address] USABilirubin [Mass/Vol]1.0 mg/dLNormal0.3-1.0The [facility] Comment on above:Performed By: #### CBC, CMP, PHOS, MG ####[place] [address] USACalcium [Mass/Vol]9.1 mg/dL Normal8.6-10.3The [facility] Physician GroupComment on above:Performed By: #### CBC, CMP, PHOS, MG ####[place] [address] USAChloride [Moles/Vol]104 mmol/ZKxvjah55-859Kmb [facility] Physician GroupComment on above:Performed By: #### CBC, CMP, PHOS, MG ####[place] [address] USACO2 [Moles/Vol]21.7 mmol/BRjucfg16.0-31.0The [facility] Physician GroupComment on above:Performed By: #### CBC, CMP, PHOS, MG ####[address] [place] [address] USACreatinine [Mass/Vol]1.46 mg/dLHigh0.70-1.30The [facility] Physician GroupComment on above:Performed By: #### CBC, CMP, PHOS, MG ####[address] [place] [address] [place] Creatinine Clr Calc Otpbnyqw88.74NoThe [facility]er [facility] Hospital Physician GroupComment on above:Performed By: #### CBC, CMP, PHOS, MG ####[place] [address] USAGFR/1.73 sq M.predicted MDRD (S/P/Bld) [Vol rate/Area]55.398 mL/min/{1.73_m2}NormalThe [facility] Comment on above:Performed By: #### CBC, CMP, PHOS, MG ####[place] [address] USAGlobulin (S) [Mass/Vol]3.7 g/dLNoThe [facility] Hospital Physician GroupComment on above:Performed By: #### CBC, CMP, PHOS, MG ####[place] [address] USAGlucose [Mass/Vol]167 mg/yOIopk72-232Vtj [facility] Comment on above:Result Comment: Random Glucose Reference Range is dependent on time and content of last meal. Glucose of more than 200 mg/dL in a nonstressed, ambulatory subject supports the diagnosis of Diabetes Mellitus. ADA recommended reference rangePerformed By: #### CBC, CMP, PHOS, MG ####[place] [address] USAPotassium [Moles/Vol]3.9 mmol/LNormal3.5-5.1The [facility] Physician GroupComment on above:Performed By: #### CBC, CMP, PHOS, MG ####[place] [address] USAProtein [Mass/Vol]7.2 g/dLNormal6.4-8.9The [facility] Physician GroupComment on above:Performed By: #### CBC, CMP, PHOS, MG ####[facility] [place] [address] USASodium [Moles/Vol]136 mmol/XHtcgpg082-874Ojx [facility] Physician GroupComment on above: Performed By: #### CBC, CMP, PHOS, MG ####[facility] [place] [address] USAUrea nitrogen [Mass/Vol]19 mg/dLNormalEastern Idaho Regional Medical Center Physician GroupComment on above:Performed By: #### CBC, CMP, PHOS, MG ####[facility] [place] [address] USAGlucose Poct Glucometerson 67-75-7777Tutdiui [Mass/Vol]174 mg/dLNoThe [facility] Hospital Physician GroupComment on above:Result Comment: Random Glucose Reference Range is dependent on time and content of last meal. Glucose of more than 200 mg/dL in a nonstressed, ambulatory subject supports the diagnosis of Diabetes Evelyn litus.PERFORMED BY:[address] [place], [place] [phone] MEDICAL DIRECTORCLIFFORD LOBATO M.D.Performed By: #### GLULS ####Point of Care testing,Glucose [Mass/Vol]216 mg/dLAdventHealth Palm Coast Parkway Physician GroupComment on above:Result Comment: Random Glucose Reference Range is dependent on time and content of last meal. Glucose of more than 200 mg/dL in a nonstressed, ambulatory subject supports the diagnosis of Diabetes Evelyn litus.PERFORMED BY:[address] [place], [place] [phone] MEDICAL DIRECTORCLIFFORD LOBATO M.D.Performed By: #### GLULS ####Point of Care testing,Glucose [Mass/Vol]230 mg/dLAdventHealth Palm Coast Parkway Physician GroupComment on above:Result Comment: Random Glucose Reference Range is dependent on time and content of last meal. Glucose of more than 200 mg/dL in a nonstressed, ambulatory subject supports the diagnosis of Diabetes Evelyn litus.PERFORMED BY:[address] [place], [place] [phone] MEDICAL DIRECTORCLIFFORD LOBATO M.D.Performed By: #### GLULS ####Point of Care testing,Glucose [Mass/Vol]179 mg/dLNormalThe [facility] Physician GroupComment on above:Result Comment: Random Glucose Reference Range is dependent on time and content of last meal. Glucose of more than 200 mg/dL in a nonstressed, ambulatory subject supports the diagnosis of Diabetes Evelyn litus.PERFORMED BY:[address] [address] [address] AVDarrianMaryCHAL[place], [place] [phone] MEDICAL DIRECTORCLIFFORD LOBATO M.D.Performed By: #### GLULS ####Point of Care testing,Magnesiumon 64-22-8684Cuqjtnfao [Mass/Vol]2.0 mg/dLNormal1.9-2.7The [facility] Physician GroupComment on above:Result Comment: PERFORMED BY:[place] [address] [address]DENARINA SIMONSCHALINOY[place], [place] [phone] MEDICAL BRISA LOBATO M.D.Performed By: #### CBC, CMP, PHOS, MG ####[place] [id number] [facility] CARE CENTERPhosphoruson 29-28-0475Cpwjyczob [Mass/Vol]2.5 mg/dLNormal2.5-4.5The [facility] Physician GroupComment on above:Performed By: #### CBC, CMP, PHOS, MG ####[address] Complete Blood Count Auto Diffon [id number] (Bld) [#/Vol]0.1 10*3/uL Normal0.0-0.2The [facility] Physician GroupComment on above:Result Comment: PERFORMED BY:[place] [address] CATR[address]O GILMANItzelCHALINOYATESVILLE, [place] [phone] MEDICAL BRISA LOBATO M.D.Performed By: #### CBC, MG, PHOS, CMP ####[place] [address] USABasophils/100 WBC (Bld)0.6 %Normal.[facility] Comment on above:Performed By: #### CBC, MG, PHOS, CMP ####[place] [address] USAEosinophils (Bld) [#/Vol]0.2 10*3/uLNormal0.0-0.45The [facility] Physician GroupComment on above:Performed By: #### CBC, MG, PHOS, CMP ####[place] [address] USAEosinophils/100 WBC (Bld)2.7 %Normal.The [facility] Physician GroupComment on above:Performed By: #### CBC, MG, PHOS, CMP ####[place] [address] [place] Erythrocyte distribution width (RBC) [Ratio]24.0 %High12.0-14.8The [facility] Physician GroupComment on above:Performed By: #### CBC, MG, PHOS, CMP ####[place] [address] [place] Hematocrit (Bld) [Volume fraction]27.6 %Low38.8-50.0The [facility] Physician GroupComment on above:Performed By: #### CBC, MG, PHOS, CMP ####[place] [address] USAHemoglobin (Bld) [Mass/Vol]8.8 g/dLLow13.0-17.0The [facility] Physician GroupComment on above: Performed By: #### CBC, MG, PHOS, CMP ####[place] [address] USALymphocytes (Bld) [#/Vol]0.5 10*3/uLLow 1.00-4.8The [facility] Physician GroupComment on above:Performed By: #### CBC, MG, PHOS, CMP ####[place] [address] USALymphocytes/100 WBC (Bld)5.3 %Normal.[facility] Comment on above:Performed By: #### CBC, MG, PHOS, CMP ####[address] (RBC) [Entitic mass]23.1 pgLow27.5-35.2The [facility] Physician GroupComment on above:Performed By: #### CBC, MG, PHOS, CMP ####[address] (RBC) [Entitic vol]72.1 fLLow83.5-101The [facility] Physician GroupComment on above:Performed By: #### CBC, MG, PHOS, CMP ####[place] [address] USAMean Corpuscular HGB Conc32.0 g/dLLow32.5-35.6The [facility] Physician GroupComment on above:Performed By: #### CBC, MG, PHOS, CMP ####[place] [address] USAMonocytes (Bld) [#/Vol]0.9 10*3/uLHigh0.0-0.8The [facility] Physician GroupComment on above:Performed By: #### CBC, MG, PHOS, CMP ####[place] [address] [place] Monocytes/100 WBC (Bld)10.5 %Normal.The [facility] Physician GroupComment on above:Performed By: #### CBC, MG, PHOS, CMP ####[place] [address] USANeutrophils (Bld) [#/Vol]7.3 10*3/uL Normal1.8-7.7The [facility] Physician GroupComment on above:Performed By: #### CBC, MG, PHOS, CMP ####[place] [address] USANeutrophils/100 WBC (Bld)80.9 %Normal.[facility] Comment on above:Performed By: #### CBC, MG, PHOS, CMP ####[place] [address] USANRBC%0.0 /100{WBC}Normal0-0.5 The [facility] Physician GroupComment on above:Performed By: #### CBC, MG, PHOS, CMP ####[address] Platelet mean volume (Bld) [Entitic vol]8.8 fLNormal6.6-10.1The [facility] Physician GroupComment on above:Performed By: #### CBC, MG, PHOS, CMP ####[address] Platelets (Bld) [#/Vol]201 10*3/rLAoiaqk132-584Nne [facility] Physician [facility] Comment on above:Performed By: #### CBC, MG, PHOS, CMP ####[place] [address] USARBC (Bld) [#/Vol]3.83 10*6/uL Low3.90-5.60The [facility] Physician GroupComment on above:Performed By: #### CBC, MG, PHOS, CMP ####[place] [address] USAWBC (Bld) [#/Vol]9.0 10*3/uLNormal4.1-10.5The [facility] Physician GroupComment on above:Performed By: #### CBC, MG, PHOS, CMP ####[address]Comprehensive Metabolic Panelon 56-43-9779Oacymmn [Mass/Vol]3.5 g/dLNormal3.5-5.7The [facility] Physician GroupComment on above:Performed By: #### CBC, MG, PHOS, CMP ####[address] Albumin/Globulin [Mass ratio]0.9 {ratio}NormalThe [facility] Comment on above:Performed By: #### CBC, MG, PHOS, CMP ####[address] [place] [address] USAALP [Catalytic activity/Vol] 367 U/ELdml70-901Ccf [facility] Physician GroupComment on above:Performed By: #### CBC, MG, PHOS, CMP ####[address] [place] [address] USAALT [Catalytic activity/Vol]59 U/LHigh7-52The [facility] Physician GroupComment on above:Performed By: #### CBC, MG, PHOS, CMP ####[address] [address] USAAnion gap [Moles/Vol]12.6 mmol/LNormal6.0-15.0The [facility] Physician GroupComment on above:Performed By: #### CBC, MG, PHOS, CMP ####[address] [address] USAAST [Catalytic activity/Vol]52 U/LHigh 13-39The [facility] Physician GroupComment on above:Performed By: #### CBC, MG, PHOS, CMP ####[address] [address] USABilirubin [Mass/Vol]1.5 mg/dLHigh0.3-1.0The [facility] Physician GroupComment on above:Result Comment: Samples from patients who have taken Naproxen have shown spurious elevation in Total Bilirubin levels. A metabolite of Naproxen, O- desmethylnaproxen, has been shown to interfere with the Jengeovanniik-Grojennifer method for measuring Total Bilirubin.Performed By: #### CBC, MG, PHOS, CMP ####[address] [address] USACalcium [Mass/Vol]8.8 mg/dLNormal8.6-10.3The [facility] Physician GroupComment on above: Performed By: #### CBC, MG, PHOS, CMP ####[address] [address] USAChloride [Moles/Vol]104 mmol/ZWiwmtr51-492Yri [facility] Physician GroupComment on above:Performed By: #### CBC, MG, PHOS, CMP ####[address] [place] [address] USACO2 [Moles/Vol]23.0 mmol/MAcufaf55.0-31.0The [facility] Physician GroupComment on above:Performed By: #### CBC, MG, PHOS, CMP ####[place] [address] USACreatinine [Mass/Vol]1.70 mg/dLHigh 0.70-1.30The [facility] Physician GroupComment on above:Performed By: #### CBC, MG, PHOS, CMP ####[place] [address] USACreatinine Clr Calc Iiopwkzq92.45NoThe [facility] Comment on above:Performed By: #### CBC, MG, PHOS, CMP ####[place] [address] USAGFR/1.73 sq M.predicted MDRD (S/P/Bld) [Vol rate/Area]46.151 mL/min/{1.73_m2}NormalThe [facility] Physician GroupComment on above:Performed By: #### CBC, MG, PHOS, CMP ####[place] [address] USAGlobulin (S) [Mass/Vol]3.7 g/dLNoThe [facility] Physician [facility] HospitalComment on above:Performed By: #### CBC, MG, PHOS, CMP ####[place] [address] USAGlucose [Mass/Vol]150 mg/dQDaiu49-150Auw [facility] Physician GroupComment on above:Result Comment: Random Glucose Reference Range is dependent on time and content of last meal. Glucose of more than 200 mg/dL in a nonstressed, ambulatory subject supports the diagnosis of Diabetes Mellitus. ADA recommended reference rangePerformed By: #### CBC, MG, PHOS, CMP ####[address] [place] [address] [place] Potassium [Moles/Vol]3.6 mmol/LNormal3.5-5.1The [facility] Physician GroupComment on above:Performed By: #### CBC, MG, PHOS, CMP ####[address] [address] USAProtein [Mass/Vol]7.2 g/dLNormal 6.4-8.9The [facility] Physician GroupComment on above:Performed By: #### CBC, MG, PHOS, CMP ####[address] [address] USASodium [Moles/Vol]136 mmol/OZgzvxr321-220Xft [facility] Comment on above:Performed By: #### CBC, MG, PHOS, CMP ####[place] [address] USAUrea nitrogen [Mass/Vol]17 mg/dLNormal7-25The [facility] Physician GroupComment on above:Performed By: #### CBC, MG, PHOS, CMP ####[address] [address] USAGlucose Poct Glucometerson 77-80-3516Tnuzdha [Mass/Vol]193 mg/dL NormalThe [facility] Physician [facility] HospitalComment on above:Result Comment: Random Glucose Reference Range is dependent on time and content of last meal. Glucose of more than 200 mg/dL in a nonstressed, ambulatory subject supports the diagnosis of Diabetes Mellitus.PERFORMED BY:[place] [address] [address] [place], [place] [phone] MEDICAL DIRECTORCLIFFORD LOBATO M.D.Performed By: #### GLULS ####Point of Care testing, Izzufwk9Vxu6: Cleaned MeterNormHCA Florida [facility] Hospital Physician GroupComment on above: Result Comment: PERFORMED BY:[address] [address] [address] [place], [place] [phone] MEDICAL DIRECTORCLIFFORD LOBATO M.D. Performed By: #### GLULS ####Point of Care testing,Glucose [Mass/Vol]156 mg/dL NormalThe [facility] Physician GroupComment on above:Result Comment: Random Glucose Reference Range is dependent on time and content of last meal. Glucose of more than 200 mg/dL in a nonstressed, ambulatory subject supports the diagnosis of Diabetes Mellitus.Performed By: #### GLULS ####Point of Care testing,Cwvahvi6Uxn5: Cleaned MeterNormHCA Florida [facility] Point Hospital Physician GroupComment on above:Result Comment: PERFORMED BY:[address] LINMaryCHALINO, [place] [phone] MEDICAL DIRECTORCLIFFORD LOBATO M.D. Performed By: #### GLULS ####Point of Care testing,Glucose [Mass/Vol]185 mg/dL NormalThe [facility] Physician GroupComment on above:Result Comment: Random Glucose Reference Range is dependent on time and content of last meal. Glucose of more than 200 mg/dL in a nonstressed, ambulatory subject supports the diagnosis of Diabetes Mellitus.Performed By: #### GLULS ####Point of Care testing,Glucose [Mass/Vol]178 mg/dLAdventHealth Palm Coast Parkway Physician GroupComment on above:Result Comment: Random Glucose Reference Range is dependent on time and content of last meal. Glucose of more than 200 mg/dL in a nonstressed, ambulatory subject supports the diagnosis of Diabetes Mellitus.PERFORMED BY:[address] MUKULDarrianMaryHAMILTON, [place] [phone] MEDICAL DIRECTORCLIFFORD LOBATO M.D.Performed By: #### GLULS ####Point of Care testing,Hep C Ab wRfx to Qnt PCRon 67-43-2896Aradgaoap C Virus AntibodyNon-ReactiveNormalNon ReactiveThe [facility] Comment on above:Performed By: #### HCV RX PCR ####[facility] , Interpretation Hepatitis CCommentNormal.The [facility] Physician GroupComment on above:Result Comment: Not infected with HCV unless early or acute infection is suspected (which may be delayed in an immunocompromised individual), or other evidence exists to indicate HCV infection. Performed at: [facility] [place], [place] [id number] Proposal Consultant: Uriel Borrero PhD, Phone: [phone] BY:[address] ARACELIMaryHAMILTON, [place] [phone] MEDICAL DIRECTORCLIFFORD LOBATO M.D. Performed By: #### HCV RX PCR ####[facility] ,Hepatitis C virus IgG Ab [Presence] in Serum or Plasma by ImmunoassayOrdered By: Mike Burleson on 67-80-6556OWB IgG IA QlNon-ReactiveNon ReactiveGalion Hospital HCV IgG IA QlHepatitis C virus IgG Ab [Presence] in Serum or Plasma by ImmunoassayNon ReactiveGalion HospitalMR abdomen wo/w conon 85-70-9947GT abdomen wo/w conNormalThe [facility] Physician GroupMagnesiumon 32-10-1414Frinvkrqd [Mass/Vol]1.8 mg/dLLow1.9-2.7The [facility] Comment on above:Result Comment: PERFORMED BY:[address] [place], [place] [phone] MEDICAL DIRECTORCLIFFORD LOBATO M.D.Performed By: #### CBC, MG, PHOS, CMP ####[address] [place] [address] USANo Panel Information Ordered By: João Powell on 38-59-3665Ciuhxzh Glucose CommentGlu2: cleaned meter Galion HospitalGlu2: cleaned meterGalion HospitalNo Panel InformationOrdered By: Mike Burelson on 87-57-6976Nzmmhszee C InterpretationComment.[facility]ion HospitalComment on above:Not infected with HCV unless early or acute infection issuspected (which may be delayed in an immunocompromisedindividual), or other evidence exists to indicate HCVinfection.Performed at: - [facility] [address] [place], [place] [id number] Director: Uriel Borrero PhD, Phone: [phone].Galion HospitalPhosphoruson 75-11-3222Vzytbmpwn [Mass/Vol]3.4 mg/dL Normal2.5-4.5The [facility] Physician GroupComment on above:Performed By: #### CBC, MG, PHOS, CMP ####[address] [address] USAUS liveron 15-66-6204FL [facility] Physician [facility] Complete Blood Count Auto Diffon 78-35-2321Plykxsmae (Bld) [#/Vol]0.0 10*3/uL Normal0.0-0.2The [facility] Physician [facility] HospitalComment on above:Result Comment: PERFORMED BY:[address]DarrianCHALINO, [place] [phone] MEDICAL DIRECTORCLIFFORD LOBATO M.D.Performed By: #### CMP, MG, PHOS, GGT, CBC ####[place] [address] USABasophils/100 WBC (Bld)0.3 %Normal.The [facility] Physician GroupComment on above:Performed By: #### CMP, MG, PHOS, GGT, CBC ####[place] [address] [place] Eosinophils (Bld) [#/Vol]0.1 10*3/uLNormal0.0-0.45The [facility] Physician [facility] Comment on above:Performed By: #### CMP, MG, PHOS, GGT, CBC ####[place] [address] USAEosinophils/100 WBC (Bld)0.8 %Normal.The [facility] Physician [facility] HospitalComment on above:Performed By: #### CMP, MG, PHOS, GGT, CBC ####[place] [address] USAErythrocyte distribution width (RBC) [Ratio]23.4 % High12.0-14.8The [facility] Physician GroupComment on above:Performed By: #### CMP, MG, PHOS, GGT, CBC ####[place] [address] USAHematocrit (Bld) [Volume fraction]25.8 %Low38.8-50.0 The [facility] Physician GroupComment on above:Performed By: #### CMP, MG, PHOS, GGT, CBC ####[place] [address] USAHemoglobin (Bld) [Mass/Vol]8.4 g/dLLow13.0-17.0The [facility] Comment on above:Performed By: #### CMP, MG, PHOS, GGT, CBC ####[place] [address] USALymphocytes (Bld) [#/Vol]0.7 10*3/uLLow1.00-4.8The [facility] Physician GroupComment on above: Performed By: #### CMP, MG, PHOS, GGT, CBC ####[place] [address] USALymphocytes/100 WBC (Bld)4.9 %Normal. The [facility] Physician GroupComment on above:Performed By: #### CMP, MG, PHOS, GGT, CBC ####[address]H (RBC) [Entitic mass]23.1 pgLow27.5-35.2The [facility] Comment on above:Performed By: #### CMP, MG, PHOS, GGT, CBC ####[address] (RBC) [Entitic vol]71.2 fLLow83.5-101The [facility] Physician GroupComment on above:Performed By: #### CMP, MG, PHOS, GGT, CBC ####[place] [address] USAMean Corpuscular HGB Conc32.5 g/jOMjejjq88.5-35.6The [facility] Physician GroupComment on above:Performed By: #### CMP, MG, PHOS, GGT, CBC ####[place] [address] [place] Monocytes (Bld) [#/Vol]1.5 10*3/uLHigh0.0-0.8The [facility] Comment on above:Performed By: #### CMP, MG, PHOS, GGT, CBC ####[place] [address] USAMonocytes/100 WBC (Bld)10.6 %Normal.The [facility] Physician GroupComment on above:Performed By: #### CMP, MG, PHOS, GGT, CBC ####[place] [address] USANeutrophils (Bld) [#/Vol]11.4 10*3/uLHigh1.8-7.7The [facility] Physician GroupComment on above:Performed By: #### CMP, MG, PHOS, GGT, CBC ####[address] Neutrophils/100 WBC (Bld)83.4 %Normal.The [facility] Physician GroupComment on above:Performed By: #### CMP, MG, PHOS, GGT, CBC ####[place] [address] USANRBC%0.2 /100{WBC}Normal0-0.5The [facility] Physician GroupComment on above:Performed By: #### CMP, MG, PHOS, GGT, CBC ####[address] Platelet mean volume (Bld) [Entitic vol]8.9 fLNormal6.6-10.1The [facility] Physician GroupComment on above:Performed By: #### CMP, MG, PHOS, GGT, CBC ####[place] [address] [place] Platelets (Bld) [#/Vol]205 10*3/tIPwiulm937-702Ppq [facility] Comment on above:Performed By: #### CMP, MG, PHOS, GGT, CBC ####[place] [address] USARBC (Bld) [#/Vol]3.62 10*6/uLLow3.90-5.60The [facility] Physician GroupComment on above:Performed By: #### CMP, MG, PHOS, GGT, CBC ####[address] [address] USAWBC (Bld) [#/Vol]13.7 10*3/uLHigh4.1-10.5The [facility] Physician GroupComment on above:Performed By: #### CMP, MG, PHOS, GGT, CBC ####[address] [address] [facility] Comprehensive Metabolic Panelon 91-64-9685Idfypkd [Mass/Vol]3.4 g/dLLow3.5-5.7 The [facility] Physician GroupComment on above:Performed By: #### CMP, MG, PHOS, GGT, CBC ####[place] [address] USAAlbumin/Globulin [Mass ratio]1.0 {ratio}NormalThe [facility] Comment on above:Performed By: #### CMP, MG, PHOS, GGT, CBC ####[address] [address] USAALP [Catalytic activity/Vol]426 U/LTfuc23-386Dgw [facility] Physician GroupComment on above: Performed By: #### CMP, MG, PHOS, GGT, CBC ####[place] [address] USAALT [Catalytic activity/Vol]78 U/LHigh 7-52The [facility] Physician GroupComment on above:Performed By: #### CMP, MG, PHOS, GGT, CBC ####[address] [address] USAAnion gap [Moles/Vol]14.5 mmol/LNormal6.0-15.0The [facility] Physician GroupComment on above:Performed By: #### CMP, MG, PHOS, GGT, CBC ####[place] [address] USAAST [Catalytic activity/Vol]92 U/HSkdk40-28Cgx [facility] Physician [facility] HospitalComment on above: Performed By: #### CMP, MG, PHOS, GGT, CBC ####[place] [address] USABilirubin [Mass/Vol]2.2 mg/dLHigh 0.3-1.0The [facility] Physician [facility] HospitalComment on above:Result Comment: Samples from patients who have taken Naproxen have shown spurious elevation in Total Bilirubin levels. A metabolite of Naproxen, O-desmethylnaproxen, has been shown to interfere with the Jendrannaleeik-Grof method for measuring Total Bilirubin. Performed By: #### CMP, MG, PHOS, GGT, CBC ####[place] [address] USACalcium [Mass/Vol]8.3 mg/dLLow8.6-10.3 The [facility] Physician GroupComment on above:Performed By: #### CMP, MG, PHOS, GGT, CBC ####[place] [address] USAChloride [Moles/Vol]102 mmol/HHckwvf49-387Grx [facility] Physician [facility] Comment on above:Performed By: #### CMP, MG, PHOS, GGT, CBC ####[place] [address] USACO2 [Moles/Vol]21.8 mmol/DUwjwot57.0-31.0The [facility] Physician GroupComment on above:Performed By: #### CMP, MG, PHOS, GGT, CBC ####[place] [address] USACreatinine [Mass/Vol]1.81 mg/dLHigh0.70-1.30The [facility] Physician GroupComment on above:Performed By: #### CMP, MG, PHOS, GGT, CBC ####[place] [address] [place] Creatinine Clr Calc Vzjabzgt63.38NormMercy Health Defiance Hospitale [facility] Physician GroupComment on above:Performed By: #### CMP, MG, PHOS, GGT, CBC ####[place] [address] USAGFR/1.73 sq M.predicted MDRD (S/P/Bld) [Vol rate/Area]42.806 mL/min/{1.73_m2}NormalThe [facility] Comment on above:Performed By: #### CMP, MG, PHOS, GGT, CBC ####[place] [address] USAGlobulin (S) [Mass/Vol]3.3 g/dLNormalThe [facility] Physician GroupComment on above:Performed By: #### CMP, MG, PHOS, GGT, CBC ####[place] [address] USAGlucose [Mass/Vol]141 mg/nUUupp14-014Vbf [facility] Physician GroupComment on above:Result Comment: Random Glucose Reference Range is dependent on time and content of last meal. Glucose of more than 200 mg/dL in a nonstressed, ambulatory subject supports the diagnosis of Diabetes Mellitus. ADA recommended reference rangePerformed By: #### CMP, MG, PHOS, GGT, CBC ####[place] [address] [place] Potassium [Moles/Vol]3.3 mmol/LLow3.5-5.1The [facility] Physician GroupComment on above:Performed By: #### CMP, MG, PHOS, GGT, CBC ####[place] [address] USAProtein [Mass/Vol]6.7 g/dLNormal 6.4-8.9The [facility] Physician GroupComment on above:Performed By: #### CMP, MG, PHOS, GGT, CBC ####[place] [address] USASodium [Moles/Vol]135 mmol/LSignificant change raqe490-305Jga [facility] Physician GroupComment on above:Performed By: #### CMP, MG, PHOS, GGT, CBC ####[place] [address] USAUrea nitrogen [Mass/Vol]16 mg/dLNormal7-25The [facility] Hospitallands Physician GroupComment on above:Performed By: #### CMP, MG, PHOS, GGT, CBC ####[address] [address] USAGamma Glutamyl Transpeptidaseon 60-12-2828Kmifgph [Catalytic activity/Vol]176 U/LHighAscension Sacred [facility] Hospital Emerald Coast Physician GroupComment on above:Result Comment: PERFORMED BY:[address] LINMayrCHALINOYATESVILLE, [place] [phone] MEDICAL DIRECTORCLIFFORD LOBATO M.D.Performed By: #### CMP, MG, PHOS, GGT, CBC ####[address] [address] USAGamma glutamyl transferase [Enzymatic activity/volume] in Serum or PlasmaOrdered By: João Powell on 85-42-8646Pkzwd glutamyl transferase [Catalytic activity/Vol]176 U/LHigh Galion HospitalGamma glutamyl transferase [Catalytic activity/Vol]Gamma glutamyl transferase [Enzymatic activity/volume] in Serum or PlasmaWyoming General HospitalGalion HospitalGlucose Poct Glucometerson 70-41-3383Lrmxdza7Btx9: Cleaned [facility] Physician [facility] HospitalComment on above:Result Comment: PERFORMED BY:[address] [address] [address] LINMaryCHALINOYATESVILLE, [place] [phone] MEDICAL DIRECTORCLIFFORD LOBATO M.D.Performed By: #### GLULS ####Point of Care testing,Glucose [Mass/Vol]133 mg/dLAdventHealth Palm Coast Parkway Physician GroupComment on above:Result Comment: Random Glucose Reference Range is dependent on time and content of last meal. Glucose of more than 200 mg/dL in a nonstressed, ambulatory subject supports the diagnosis of Diabetes Mellitus.Performed By: #### GLULS ####Point of Care testing,Jdpmleb4Agd8: Cleaned MeterAdventHealth Palm Coast Parkway Physician GroupComment on above:Result Comment: PERFORMED BY:[address] [address] [address] [place], [place] [phone] MEDICAL DIRECTORCLIFFORD LOBATO M.D. Performed By: #### GLULS ####Point of Care testing,Glucose [Mass/Vol]294 mg/dL NormalAscension Sacred Heart Hospital Emerald Coast Physician GroupComment on above:Result Comment: Random Glucose Reference Range is dependent on time and content of last meal. Glucose of more than 200 mg/dL in a nonstressed, ambulatory subject supports the diagnosis of Diabetes Mellitus.Performed By: #### GLULS ####Point of Care testing,Glucose [Mass/Vol]352 mg/dLNoThe [facility] Physician GroupComment on above:Result Comment: Random Glucose Reference Range is dependent on time and content of last meal. Glucose of more than 200 mg/dL in a nonstressed, ambulatory subject supports the diagnosis of Diabetes Mellitus.PERFORMED BY:[place] [address] [place], [place] [phone] MEDICAL DIRECTORCLIFFORD LOBATO M.D.Performed By: #### GLULS ####Point of Care testing,Glucose [Mass/Vol]174 mg/dLNoThe [facility]er [facility] Hospital Physician GroupComment on above:Result Comment: Random Glucose Reference Range is dependent on time and content of last meal. Glucose of more than 200 mg/dL in a nonstressed, ambulatory subject supports the diagnosis of Diabetes Evelyn litus.PERFORMED BY:[place] [address] [place], [place] [phone] MEDICAL BRISA LOBATO M.D.Performed By: #### GLULS ####Point of Care testing,Magnesiumon 89-10-2351Afupaklyt [Mass/Vol]1.4 mg/dLLow1.9-2.7The [facility] Physician GroupComment on above:Result Comment: PERFORMED BY:[place] [address] [place], [place] [phone] MEDICAL BRISA LOBATO M.D.Performed By: #### CMP, MG, PHOS, GGT, CBC ####[address] [place] [address] ZRXT-toyhls-L-Aspartate IgG, Seron 03-10-2024 E-tfpsye-SOdqsndlfj IgG, SerumNegativeNormalNegativeThe [facility] Physician GroupComment on above:Result Comment: This test was developed and its performance characteristics determined by [facility]. It has not been cleared or approved by the Food and Drug Administration. The [facility]-sponsored ExTINGUISH Trial (activity and safety of Inebilizumab in anti-NMDAR encephalitis) is actively recruiting patients. You may consider enrolling your patient in the clinical trial if the result of this test is positive. To learn more, or to refer your patient, call [phone] ([phone], study hotline) or see ClinicalTrials.gov (study ID, [id number]). Performed at: [facility] [id number] Proposal Consultant: Chrissy Wong MD, Phone: [phone] BY:[address] [place], [place] [phone] MEDICAL DIRECTORCLIFFORD LOBATO M.D.Performed By: #### NMDA IGG SERUM ####[facility] ,No Panel InformationOrdered By: Job James on [id number]-Klmylc-M-Biyssanxi Recept IgG AbNegativeNegThe Christ HospitalComment on above:This test was developed and its performance characteristicsdetermined by [facility]. It has not been cleared orapproved by the Food and Drug Administration.The [facility]- sponsored ExTINGUISH Trial (activity and safety ofInebilizumab in anti-NMDAR encephalitis) is activelyrecruiting patients. You may consider enrolling yourpatient in the clinical trial if the result of this test ispositive. To learn more, or to refer your patient, call [phone] ([phone], study hotline) or seeinicalTrials.gov (study ID, [id number]).Performed at: [facility] [address] [id number] Director: Chrissy Wong MD, Phone: [phone]zBerger Hospital Phosphoruson 00-11-4799Mdagtmvwb [Mass/Vol]3.1 mg/dLNormal2.5-4.5The [facility] Physician GroupComment on above:Performed By: #### CMP, MG, PHOS, GGT, CBC ####[address] Complete Blood Count Auto Diffon [id number] (Bld) [#/Vol]0.1 10*3/uL Normal0.0-0.2The [facility] Physician GroupComment on above:Result Comment: PERFORMED BY:[address]DarrianCH[place], [place] [phone] MEDICAL DIRECTORCLIFFORD LOBATO M.D.Performed By: #### CBC, CMP, MG, PHOS ####[place] [address] USABasophils/100 WBC (Bld)1.2 %Normal.The [facility] Comment on above:Performed By: #### CBC, CMP, MG, PHOS ####[place] [address] USAEosinophils (Bld) [#/Vol]0.2 10*3/uLNormal0.0-0.45The [facility] Physician GroupComment on above:Performed By: #### CBC, CMP, MG, PHOS ####[place] [address] USAEosinophils/100 WBC (Bld)2.5 %Normal.The [facility] Physician GroupComment on above:Performed By: #### CBC, CMP, MG, PHOS ####[address] Erythrocyte distribution width (RBC) [Ratio]21.9 %High12.0-14.8The [facility] Physician GroupComment on above:Performed By: #### CBC, CMP, MG, PHOS ####[address] Hematocrit (Bld) [Volume fraction]27.8 %Low38.8-50.0The [facility] Physician GroupComment on above:Performed By: #### CBC, CMP, MG, PHOS ####[place] [address] USAHemoglobin (Bld) [Mass/Vol]8.9 g/dLLow13.0-17.0The [facility] Physician GroupComment on above: Performed By: #### CBC, CMP, MG, PHOS ####[place] [address] USALymphocytes (Bld) [#/Vol]1.8 10*3/uLNormal 1.00-4.8The [facility] Physician GroupComment on above:Performed By: #### CBC, CMP, MG, PHOS ####[place] [address] USALymphocytes/100 WBC (Bld)20.9 %Normal.The [facility] Comment on above:Performed By: #### CBC, CMP, MG, PHOS ####[address] StreetMCH (RBC) [Entitic mass]22.7 pgLow27.5-35.2The [facility] Physician GroupComment on above:Performed By: #### CBC, CMP, MG, PHOS ####[address] StreetMCV (RBC) [Entitic vol]70.7 fLLow83.5-101The [facility] Physician GroupComment on above:Performed By: #### CBC, CMP, MG, PHOS ####[place] [address] USAMean Corpuscular HGB Conc32.1 g/dLLow32.5-35.6The [facility] Physician GroupComment on above:Performed By: #### CBC, CMP, MG, PHOS ####[place] [address] USAMonocytes (Bld) [#/Vol]1.0 10*3/uLHigh0.0-0.8The [facility] Physician GroupComment on above:Performed By: #### CBC, CMP, MG, PHOS ####[address] Monocytes/100 WBC (Bld)10.9 %Normal.The [facility] Physician GroupComment on above:Performed By: #### CBC, CMP, MG, PHOS ####[place] [address] USANeutrophils (Bld) [#/Vol]5.6 10*3/uL Normal1.8-7.7The [facility] Physician GroupComment on above:Performed By: #### CBC, CMP, MG, PHOS ####[place] [address] USANeutrophils/100 WBC (Bld)64.5 %Normal.The [facility] Comment on above:Performed By: #### CBC, CMP, MG, PHOS ####[place] [address] USANRBC%0.2 /100{WBC}Normal0-0.5 The [facility] Physician GroupComment on above:Performed By: #### CBC, CMP, MG, PHOS ####[address] Platelet mean volume (Bld) [Entitic vol]8.7 fLNormal6.6-10.1The [facility] Physician GroupComment on above:Performed By: #### CBC, CMP, MG, PHOS ####[place] [address] [place] Platelets (Bld) [#/Vol]265 10*3/jQWxmyri650-430Hct [facility] Comment on above:Performed By: #### CBC, CMP, MG, PHOS ####[place] [address] USARBC (Bld) [#/Vol]3.93 10*6/uL Normal3.90-5.60The [facility] Physician GroupComment on above:Performed By: #### CBC, CMP, MG, PHOS ####[place] [address] USAWBC (Bld) [#/Vol]8.8 10*3/uLNormal4.1-10.5The [facility] Physician GroupComment on above:Performed By: #### CBC, CMP, MG, PHOS ####[place] [address] USAComprehensive Metabolic Panelon 89-04-5279Dbwysbs [Mass/Vol]3.5 g/dLNormal3.5-5.7The [facility] Physician GroupComment on above:Performed By: #### CBC, CMP, MG, PHOS ####[place] [address] [place] Albumin/Globulin [Mass ratio]1.0 {ratio}NormalThe [facility] Comment on above:Performed By: #### CBC, CMP, MG, PHOS ####[place] [address] USAALP [Catalytic activity/Vol] 110 U/KCqtw20-439Wre [facility] Physician GroupComment on above:Performed By: #### CBC, CMP, MG, PHOS ####[place] [address] USAALT [Catalytic activity/Vol]10 U/LNormal7-52The [facility] Physician GroupComment on above:Performed By: #### CBC, CMP, MG, PHOS ####[place] [address] USAAnion gap [Moles/Vol]14.9 mmol/LNormal6.0-15.0The [facility] Physician GroupComment on above:Performed By: #### CBC, CMP, MG, PHOS ####[place] [address] USAAST [Catalytic activity/Vol]14 U/L Jhkqck62-12Hck [facility] Physician GroupComment on above:Performed By: #### CBC, CMP, MG, PHOS ####[place] [address] USABilirubin [Mass/Vol]0.5 mg/dLNormal0.3-1.0The [facility] Comment on above:Performed By: #### CBC, CMP, MG, PHOS ####[place] [address] USACalcium [Mass/Vol]9.0 mg/dL Normal8.6-10.3The [facility] Physician GroupComment on above:Performed By: #### CBC, CMP, MG, PHOS ####[place] [address] USAChloride [Moles/Vol]110 mmol/ACyxb88-881Qng [facility] Physician GroupComment on above:Performed By: #### CBC, CMP, MG, PHOS ####[place] [address] USACO2 [Moles/Vol]20.8 mmol/LLow21.0-31.0The [facility] Physician GroupComment on above:Performed By: #### CBC, CMP, MG, PHOS ####[place] [address] USACreatinine [Mass/Vol]1.80 mg/dLHigh0.70-1.30The [facility] Physician GroupComment on above:Performed By: #### CBC, CMP, MG, PHOS ####[place] [address] USA Creatinine Clr Calc Hdadqpdo73.64NoThe [facility] Physician GroupComment on above:Performed By: #### CBC, CMP, MG, PHOS ####[place] [id number] USAGFR/1.73 sq M.predicted MDRD (S/P/Bld) [Vol rate/Area]43.092 mL/min/{1.73_m2}NormalThe [facility] Comment on above:Performed By: #### CBC, CMP, MG, PHOS ####[place] [address] USAGlobulin (S) [Mass/Vol]3.5 g/dLNoThe [facility] Physician GroupComment on above:Performed By: #### CBC, CMP, MG, PHOS ####[address] [address] USAGlucose [Mass/Vol]91 mg/eTRgcqfb07-154Tia [facility] Comment on above:Result Comment: Random Glucose Reference Range is dependent on time and content of last meal. Glucose of more than 200 mg/dL in a nonstressed, ambulatory subject supports the diagnosis of Diabetes Mellitus. ADA recommended reference rangePerformed By: #### CBC, CMP, MG, PHOS ####[place] [place] [address] USAPotassium [Moles/Vol]3.7 mmol/LNormal3.5-5.1The [facility] Physician GroupComment on above:Performed By: #### CBC, CMP, MG, PHOS ####[address] [address] USAProtein [Mass/Vol]7.0 g/dLNormal6.4-8.9The [facility] Physician GroupComment on above:Performed By: #### CBC, CMP, MG, PHOS ####[address] [address] USASodium [Moles/Vol]142 mmol/TYrvoje114-345Lbu [facility] Physician GroupComment on above: Performed By: #### CBC, CMP, MG, PHOS ####[address] [address] USAUrea nitrogen [Mass/Vol]19 mg/dLNormal7-25The [facility] Physician GroupComment on above:Performed By: #### CBC, CMP, MG, PHOS ####[address] [address] USAGlucose Poct Glucometerson 09-22-0992Xdfrdjd [Mass/Vol]386 mg/dLNormalThe [facility] Physician GroupComment on above:Result Comment: Random Glucose Reference Range is dependent on time and content of last meal. Glucose of more than 200 mg/dL in a nonstressed, ambulatory subject supports the diagnosis of Diabetes Evelyn litus.PERFORMED BY:[address], [place] [phone] MEDICAL DIRECTORCLIFFORD LOBATO M.D.Performed By: #### GLULS ####Point of Care testing,Efquhoa2Ley0: Cleaned MeterNoThe [facility] Physician [facility] HospitalComment on above:Result Comment: PERFORMED BY:[place] [address] [place], [place] [phone] MEDICAL DIRECTORCLIFFORD LOBATO M.D.Performed By: #### GLULS ####Point of Care testing, Glucose [Mass/Vol]128 mg/dLAdventHealth Palm Coast Parkway Physician GroupComment on above: Result Comment: Random Glucose Reference Range is dependent on time and content of last meal. Glucose of more than 200 mg/dL in a nonstressed, ambulatory subject supports the diagnosis of Diabetes Mellitus.Performed By: #### GLULS ####Point of Care testing,Glucose [Mass/Vol]119 mg/dLAdventHealth Palm Coast Parkway Physician GroupComment on above:Result Comment: Random Glucose Reference Range is dependent on time and content of last meal. Glucose of more than 200 mg/dL in a nonstressed, ambulatory subject supports the diagnosis of Diabetes Evelyn litus.PERFORMED BY:[place] [address] [place], [place] [phone] MEDICAL BRISA LOBATO M.D.Performed By: #### GLULS ####Point of Care testing,Magnesiumon 90-25-1083Mhhouhstc [Mass/Vol]1.5 mg/dLLow1.9-2.7The [facility] Physician GroupComment on above:Result Comment: PERFORMED BY:[place] [address] [place], [place] [phone] MEDICAL DIRECTORCLIFFORD LOBATO M.D.Performed By: #### CBC, CMP, MG, PHOS ####[address] Narvaezformerly [facility] hospital [place] [address] USAPhosphoruson 76-77-4246Ijmqwacqx [Mass/Vol]3.1 mg/dLNormal2.5-4.5The [facility] Physician GroupComment on above:Performed By: #### CBC, CMP, MG, PHOS ####[facility] [address] [place] [address] USAUS renal BIon 91-21-6393WH renal BINormalThe [facility] Physician [facility] HospitalXR elbow LT 2Von 03-07-8089YY elbow LT 2VNormalThe [facility] Physician [facility] HospitalActivated partial thromboplastin time (aPTT) in platelet poor plasma by coagulation a Ordered By: Bonilla Rubin on 96-37-5453tFHX Coag (PPP) [Time]29.6 s25.1-36.5 [facility] HospitalComment on above:A hematocrit value greater than 55% may lead to inaccurate results in coagulation testing. Patientshaving hematocrit values >55% require a special collection tube for coagulation studies. Please contact the laboratory at [phone] for redraw instructions. Alanine aminotransferase [Enzymatic activity/volume] in Serum or PlasmaOrdered By: Bonilla Rubin on 21-33-5158LXX [Catalytic activity/Vol]13 U/LNormal7-52 [facility] HospitalComment on above:Performed By: #### PTT, HS TROP, PT, CMP, CK, CBC ####[facility] [address] [place] [address] USAAlbumin [Mass/volume] in Serum or Plasma by Bromocresol green (BCG) dye binding methoOrdered By: Bonilla Rubin on 23-23-8364Mkwjwke BCG dye [Mass/Vol]3.8 g/dL3.5-5.7FOhioHealth Grant Medical CenterAlkaline phosphatase [Enzymatic activity/volume] in Serum or PlasmaOrdered By: Bonilla Rubin on 47-84-6545RPY [Catalytic activity/Vol]116 U/DYpgc80-061JdylwpfbxGalion HospitalComment on above:Performed By: #### PTT, HS TROP, PT, CMP, CK, CBC ####[facility] [address] [place] [address] USAAmmonia [Moles/volume] in PlasmaOrdered By: João Powell on 03-08-2024 Ammonia (P) [Moles/Vol]33 umol/UWgnxpf48-40UjgzinjplClinton Memorial Hospital Center Comment on above:Result Comment: PERFORMED BY:[facility] [place], [place] [phone] MEDICAL DIRECTORCLIFFORD LOBATO M.D.Performed By: #### AMM ####[facility] [address] [place] [address] USAAmmonia (P) [Moles/Vol]Ammonia [Moles/volume] in Itoojm36-17VaelwibejGalion HospitalAmphetamine Screen Ql (U)Ordered By: Bonilla Rubin on 40-36-2140Faladpmknrrb Ql (U)Amphetamines screenNegativeGalion HospitalAmphetamines Ql (U)Negative NegativeGalion HospitalAppearance of UrineOrdered By: Bonilla Rubin on 82-06-8395Ttihyaxvqd (U)Urine appearanceCleCommunity Regional Medical CenterArterial Blood Gason 96-46-3233ETF Base Excess-1.4 mmol/LNormal -3.0-3.0The [facility] Physician GroupComment on above:Performed By: #### ABG ####Point of Care testing,ABG Frac Inspired O221 %NormalThe [facility] Physician GroupComment on above:Performed By: #### ABG ####Point of Care testing,ABG Oxygen Content6.4 mmol/LLow6.6-9.7The [facility] Physician GroupComment on above: Performed By: #### ABG ####Point of Care testing,ABG Oxygen Utfhonxqqw44.1 % Zfvgys02.0-100.0The [facility] Physician GroupComment on above:Performed By: #### ABG ####Point of Care testing,ABG HMF538.3 mm[Hg]Low35.0-45.0The [facility] Physician GroupComment on above:Performed By: #### ABG ####Point of Care testing,ABG PH7.92Vipanx1.35-7.45The [facility] Physician GroupComment on above: Performed By: #### ABG ####Point of Care testing,ABG PO292.6 mm[Hg]Normal 80.0-100.0The [facility] Physician GroupComment on above:Performed By: #### ABG ####Point of Care testing,Respiratory CriticalAdventHealth Palm Coast Parkway Physician [facility] Rehabilitation HospitalComment on above:Result Comment: Critical Value called on: 03/08/2024 at 15:16PERFORMED BY:[address] [place], [place] [phone] MEDICAL DIRECTORCLIFFORD LOBATO M.D.Performed By: #### ABG ####Point of Care testing,VBG Draw SiteLeft RadialAdventHealth Palm Coast Parkway Physician [facility] HospitalComment on above:Performed By: #### ABG ####Point of Care testing,Arterial Blood GasOrdered By: Bonilla Rubin on 52-85-5358KX3 [Moles/Vol] 23.2 mmol/DVfynlh74.0-27.0[facility] HospitalComment on above: Performed By: #### ABG ####Point of Care testing,HCO3 (Bld) [Moles/Vol]22.2 mmol/LLow23.0-29.0[facility] HospitalComment on above:Performed By: #### ABG ####Point of Care testing,Aspartate aminotransferase [Enzymatic activity/volume] in Serum or PlasmaOrdered By: Bonilla Rubin on 99-31-5382MHV [Catalytic activity/Vol]14 U/TJoikyt20-07AdhxtvqblGalion Hospital Comment on above:Performed By: #### PTT, HS TROP, PT, CMP, CK, CBC ####[facility] [address] [place] [address] USAAutomated basophil % Ordered By: Bonilla Rubin on 30-01-7458Tgxdkmnmd/100 WBC (Bld)1.0 %Normal. [facility] HospitalComment on above:Performed By: #### PTT, HS TROP, PT, CMP, CK, CBC ####[facility] [address] [place] [address] USAAutomated basophil countOrdered By: Bonilla Rubin on 03-09-7599Gwyefqlso (Bld) [#/Vol]0.1 10*3/uLNormal0.0-0.2Fire[facility] Regional Medical CenterComment on above:Result Comment: PERFORMED BY:[address] [place], [place] [phone] MEDICAL DIRECTORCLIFFORD LOBATO M.D.Performed By: #### PTT, HS TROP, PT, CMP, CK, CBC ####[place] [address] [facility] Automated blood monocyte countOrdered By: Bonilla Rubin on 90-90-6578Jagodmhis (Bld) [#/Vol]1.2 10*3/uLHigh0.0-0.8[facility] HospitalComment on above:Performed By: #### PTT, HS TROP, PT, CMP, CK, CBC ####[place] [address] USAAutomated eosinophil %Ordered By: Bonilla Rubin on 87-10-3028Nyyrjodvlrj/100 WBC (Bld)3.3 %Normal.[facility] HospitalComment on above:Performed By: #### PTT, HS TROP, PT, CMP, CK, CBC ####[place] [address] USAAutomated eosinophil countOrdered By: Bonilla Rubin on 03-08-2024 Eosinophils (Bld) [#/Vol]0.3 10*3/uLNormal0.0-0.45[facility] HospitalComment on above:Performed By: #### PTT, HS TROP, PT, CMP, CK, CBC ####[place] [address] [place] Automated monocyte %Ordered By: Bonilla Rubin on 50-49-8435Tgdcdodcg/100 WBC (Bld)13.2 %Normal.[facility] HospitalComment on above:Performed By: #### PTT, HS TROP, PT, CMP, CK, CBC ####[place] [address] USAAutomated neutrophil %Ordered By: Bonilla Rubin on 32-52-1050Uxwpgjeoiej/100 WBC (Bld)69.4 %Normal.[facility] HospitalComment on above:Performed By: #### PTT, HS TROP, PT, CMP, CK, CBC ####[facility] [address] Bacterial blood cultureOrdered By: Bonilla Rubin on 68-56-0991Btmwvimc identified Cx Nom (Bld)Bacterial blood cultureGalion Hospital Bacteria identified Cx Nom (Bld)Bacterial blood cultureGalion HospitalBacteria identified Cx Nom (Bld)NO GROWTH 5 DAYSGalion HospitalBacteria identified Cx Nom (Bld)NO GROWTH 5 DAYSGalion HospitalBarbiturates [Presence] in Urine by Screen methodOrdered By: Bonilla Rubin on 56-31-4399Cctukifywwyd Screen Ql (U)NegativeNegative Galion HospitalBarbiturates Screen Ql (U)Barbiturates [Presence] in Urine by Screen methodNegativeGalion Hospital Benzodiazepines Screen Ql (U)Ordered By: Bonilla Rubin on 03-08-2024 Benzodiazepines Ql (U)NegativeNegativeGalion Hospital Benzodiazepines Ql (U)Benzodiazepines [Presence] in Urine by Screen method NegativeGalion HospitalBenzoylecgonine [Presence] in Urine by Screen methodOrdered By: Bonilal Rubin on 55-46-2549Fmiuqvmlejpeclc Screen Ql (U)NegativeNegativeGalion HospitalBenzoylecgonine Screen Ql (U)Benzoylecgonine [Presence] in Urine by Screen methodNegativeGalion HospitalBilirubin Test strip Ql (U)Ordered By: Bonilla Rubin on 81-55-6593Gtsbmbkpt Ql (U)NegativeNegativeGalion Hospital Bilirubin Ql (U)Bilirubin.total [Presence] in Urine by Test stripNegative Galion HospitalBilirubin.total [Mass/volume] in Serum or PlasmaOrdered By: Bonilla Rubin on 58-23-3157Jcdwlbplr [Mass/Vol]0.4 mg/dLNormal 0.3-1.0[facility] HospitalComment on above:Performed By: #### PTT, HS TROP, PT, CMP, CK, CBC ####[address] [address] USABioFire Not Detectedon 50-54-2225ZxsNfps Not DetectedNot detectedNormalNot DetecteThe [facility] Physician [facility] HospitalComment on above:Result Comment: This is a duplicate RP2.1 COVID (PCR) result to be used for statistical tracking purpose only.PERFORMED BY:[address]ETItzelH[place], [place] [phone] MEDICAL DIRECTORCLIFFORD LOBATO M.D. Performed By: #### RESP PANEL UPP., BIOFIRECOVNOTDE ####[address] [address] USABlood Cultureon 03-08-2024 Bacteria identified Cx Nom (Bld)NO GROWTH 5 DAYS PERFORMED BY: [address] [address] PATHOLOGIST BOAT TESTER CLIFOFRD LOBATO M.D.NormalAscension Sacred [facility] Hospital [facility] Physician [facility] HospitalComment on above:Performed By: #### CUBLD, LACTIC ####[address] [address] USABacteria identified Cx Nom (Bld)NO GROWTH 5 DAYS PERFORMED BY: [place] [id number] PATHOLOGIST BOAT TESTER CLIFFORD LOBATO M.D.[facility] Physician [facility] HospitalComment on above:Performed By: #### CUBLD, LACTIC ####[place] [id number] USACOVID-19 Detected/Not DetectedOrdered By: Bonilla Rubin on 67-07-0308FEFI-CoV-2 (COVID-19) RNA NELLY+non-probe Ql (Nph)Not detectedNot DetectMagruder Memorial HospitalComment on above:This is a duplicate RP2.1 COVID (PCR) result to be used for statistical tracking purpose only.CT angio headon 10-53-1327IH angio headNormalThe [facility] Physician [facility] Calcium [Mass/volume] in Serum or PlasmaOrdered By: Bonilla Rubin on 03-08-2024 Calcium [Mass/Vol]9.6 mg/dLNormal8.6-10.3FOhioHealth Grant Medical Center Comment on above:Performed By: #### PTT, HS TROP, PT, CMP, CK, CBC ####[facility] [place] [address] USACannabinoids [Presence] in Urine by Screen methodOrdered By: Bonilla Rubin on 03-08-2024 Cannabinoids Screen Ql (U)NegativeNegThe Christ Hospital Comment on above:These are unconfirmed results and should not be used for legal purposes. Drug Cut-Off Concentration: AMPH 1000 ng/mL JERMAINE 200 ng/mL SAVANNAH 200 ng/mL COCM 300 ng/mL OP 300 ng/mL PCP 25 ng/mL THC 20 ng/mLCannabinoids Screen Ql (U)Cannabinoids [Presence] in Urine by Screen methodNegativeGalion HospitalComment on above:These are unconfirmed results and should not be used for legal purposes. Drug Cut-Off Concentration: AMPH 1000 ng/mL JERMAINE 200 ng/mL SAVANNAH 200 ng/mL COCM 300 ng/mL OP 300 ng/mL PCP 25 ng/mL THC 20 ng/mLCapillary blood glucose measurement by glucometer (mass/volume)Ordered By: Bonilla Rubin on 16-03-5301Anjhqli [Mass/Vol]182 mg/dLNoOhio State Harding HospitalComment on above:Result Comment: Random Glucose Reference Range is dependent on time and content of last meal. Glucose of more than 200 mg/dL in a nonstressed, ambulatory subject supports the diagnosis of Diabetes Evelyn litus.PERFORMED BY:[address] [place], [place] [phone] MEDICAL DIRECTORCLIFFORD LOBATO M.D.Performed By: #### GLULS ####Point of Care testing,Carbon dioxide, total [Moles/volume] in Serum or PlasmaOrdered By: Bonilla Rubin on 34-57-1769YP3 [Moles/Vol]25.0 mmol/LNormal 21.0-31.0Galion HospitalComment on above:Performed By: #### PTT, HS TROP, PT, CMP, CK, CBC ####[facility] [place] [address] USAChloride [Moles/volume] in Serum or PlasmaOrdered By: Bonilla Rubin on 07-77-0496Xbjwdnbs [Moles/Vol]106 mmol/SXcwxkz84-288 Galion HospitalComment on above:Performed By: #### PTT, HS TROP, PT, CMP, CK, CBC ####[place] [address] USAColor Auto (U)Ordered By: Bonilla Rubin on 03-08-2024 Color (U)Color of Urine by AutoYellowGalion HospitalColor of Urine by AutoOrdered By: Bonilla Rubin on 21-77-0915Zdvks (U)Light-yellowNormal YellowGalion HospitalComment on above:Order Comment: Name Collection Type:: Straight CatheterPerformed By: #### UA ####[place] [address] USAComplete Blood Count Auto Diff on 25-86-5427Efmo Corpuscular HGB Conc32.0 g/dLLow32.5-35.6[facility] Physician GroupComment on above:Performed By: #### PTT, HS TROP, PT, CMP, CK, CBC ####[place] [address] [place] Monocytes/100 WBC (Bld)18.68 %Normal0.00-20.00[facility] Comment on above:Performed By: #### PTT, HS TROP, PT, CMP, CK, CBC ####[place] [address] USANRBC%0.2 /100{WBC} Normal0-0.5[facility] Physician [facility] HospitalComment on above:Performed By: #### PTT, HS TROP, PT, CMP, CK, CBC ####[place] [address] USAComprehensive Metabolic Panelon 70-79-0356Bbvejia [Mass/Vol]3.8 g/dLNormal3.5-5.7The [facility] Physician GroupComment on above: Performed By: #### PTT, HS TROP, PT, CMP, CK, CBC ####[address] [place] [address] USACreatinine Clr Calc Gayefyqg19.90 NormalThe [facility]ty Hospital Physician GroupComment on above:Result Comment: PERFORMED BY:[address] [place], [place] [phone] MEDICAL DIRECTORCLIFFORD LOBATO M.D.Performed By: #### PTT, HS TROP, PT, CMP, CK, CBC ####[address] [address] USAGFR/1.73 sq M.predicted MDRD (S/P/Bld) [Vol rate/Area]40.131 mL/min/{1.73_m2}NormalThe [facility] Hospital Physician GroupComment on above:Performed By: #### PTT, HS TROP, PT, CMP, CK, CBC ####[address] [address] USACreatine kinase [Enzymatic activity/volume] in Serum or PlasmaOrdered By: Bonilla Rubin on 29-80-7462GZ [Catalytic activity/Vol]181 U/LElignx77-943RuloqfxrbGalion HospitalComment on above:Performed By: #### PTT, HS TROP, PT, CMP, CK, CBC ####[address] [address] USACK [Catalytic activity/Vol] Creatine kinase [Enzymatic activity/volume] in Serum or Eqygby22-656XxtwbbcueGalion HospitalCreatinine [Mass/volume] in Serum or PlasmaOrdered By: Bonilla Rubin on 36-61-6123Droilqhfxw [Mass/Vol]1.91 mg/dLHigh0.70-1.30Galion HospitalComment on above:Performed By: #### PTT, HS TROP, PT, CMP, CK, CBC ####[address] [address] USADrug Screen,Urineon 19-09-4964Mmixbuhznbj Screen,UrineNegativeNormal NegativeThe [facility] Hospital Physician GroupComment on above:Performed By: #### URDS ####[facility] [place] [address] [place] Barbiturate Screen,UrineNegativeNormalNegativeThe [facility] Comment on above:Performed By: #### URDS ####[address] [address] USABenzodiazepines Screen,UrineNegativeNormal NegativeThe [facility] Hospital Physician GroupComment on above:Performed By: #### URDS ####[address] [address] USA Cannabinoid Screen,UrineNegativeNormalNegativeThe [facility] Comment on above:Result Comment: These are unconfirmed results and should not be used for legal purposes. Drug Cut-Off Concentration: AMPH 1000 ng/mL JERMAINE 200 ng/mL SAVANNAH 200 ng/mL COCM 300 ng/mL OP 300 ng/mL PCP 25 ng/mL THC 20 ng/mLPERFORMED BY:[address] [place], [place] [phone] MEDICAL DIRECTORCLIFFORD LOBATO M.D.Performed By: #### URDS ####[address] [address] [place] Cocaine Screen,UrineNegativeNormalNegativeThe [facility] Physician [facility] HospitalComment on above:Performed By: #### URDS ####[address] [address] USAOpiate Screen,UrineNegativeNormalNegativeThe [facility] Physician GroupComment on above:Performed By: #### URDS ####[address] [address] USAPhencyclidine Screen,UrineNegativeNormalNegativeThe [facility] Physician GroupComment on above: Performed By: #### URDS ####[address] [address] USAECG 12 lead ECGon 82-39-5865YYN 12 lead ECGNormalThe [facility] Physician GroupErythrocyte distribution width [Ratio] by Automated countOrdered By: Bonilla Rubin on 34-74-2691Gcbdevwncxj distribution width (RBC) [Ratio]22.0 %High12.0-14.8Galion HospitalComment on above: Performed By: #### PTT, HS TROP, PT, CMP, CK, CBC ####[address] [place] [address] USAErythrocytes [#/volume] in Blood by Automated countOrdered By: Bonilla Rubin on 08-35-5022FNN (Bld) [#/Vol]4.54 10*6/uLNormal3.90-5.60Galion HospitalComment on above: Performed By: #### PTT, HS TROP, PT, CMP, CK, CBC ####[address] [place] [address] USAGlucose [Mass/volume] in Serum or PlasmaOrdered By: Bonilla Rubin on 16-44-7647Epmzfuq [Mass/Vol]167 mg/dLHigh 70-100Galion HospitalComment on above:Result Comment: Random Glucose Reference Range is dependent on time and content of last meal. Glucose of more than 200 mg/dL in a nonstressed, ambulatory subject supports the diagnosis of Diabetes Mellitus. ADA recommended reference rangePerformed By: #### PTT, HS TROP, PT, CMP, CK, CBC ####[address] USAGlucose [Mass/volume] in Urine by Test stripOrdered By: Bonilla Rubin on 04-97-3345Xeewyzq Test strip (U) [Mass/Vol]>=1000 mg/dL HighMary Rutan HospitalGlucose Test strip (U) [Mass/Vol] Glucose [Mass/volume] in Urine by Test stripHighMary Rutan HospitalHematocrit [Volume Fraction] of Blood by Automated countOrdered By: Bonilla Rubin on 87-14-7155Kzkbumrxlh (Bld) [Volume fraction]32.2 %Low38.8-50.0 Galion HospitalComment on above:Performed By: #### PTT, HS TROP, PT, CMP, CK, CBC ####[address] [place] [address] USAHemoglobin Test strip Ql (U)Ordered By: Bonilla Rubin on 90-28-3336Xzdfpoqwcg Ql (U)NegativeNegativeGalion Hospital Hemoglobin Ql (U)Hemoglobin [Presence] in Urine by Test stripNegativeGalion HospitalHemoglobin [Mass/volume] in BloodOrdered By: Bonilla Rubin on 47-37-4437Peturvctnh (Bld) [Mass/Vol]10.3 g/dLLow13.0-17.0Galion HospitalComment on above:Performed By: #### PTT, HS TROP, PT, CMP, CK, CBC ####[facility] [address] [place] [address] USAINR in Platelet poor plasma by Coagulation assayOrdered By: Bonilla Rubin on 94-41-2281URN Coag (PPP) [Relative time]1.1 {INR}NormalGalion HospitalComment on above:INR Therapeutic Range A) Pre- [...] PTT, HS TROP, PT, CMP, CK, CBC ####[facility] [address] [place] [address] USAINR Coag (PPP) [Relative time]INR in Platelet poor plasma by Coagulation assayGalion Hospital Comment on above:INR Therapeutic Range A) [...] Ql (U)Ketones [Presence] in Urine by Test stripNegThe Christ HospitalKetones [Presence] in Urine by Test stripOrdered By: Bonilla Rubin on 72-76-0791Urzwkfz Ql (U)NegativeNormalNegThe Christ HospitalComment on above:Order Comment: Name Collection Type:: Straight CatheterPerformed By: #### UA ####[address] [address] USALactate [Moles/volume] in Serum or PlasmaOrdered By: Bonilla Rubin on 49-37-7361Xphyqsw [Moles/Vol]1.1 mmol/LNormal0.5-2.2FOhioHealth Grant Medical CenterComment on above:Result Comment: PERFORMED BY:[address] [place], [place] [phone] MEDICAL BRISA LOBATO M.D.Performed By: #### CUBLD, LACTIC ####[address] [address] USALactate [Moles/Vol] Lactate [Moles/volume] in Serum or Plasma0.5-2.2FOhioHealth Grant Medical CenterLeukocyte esterase [Presence] in Urine by Test stripOrdered By: Bonilla Rubin on 64-43-8414Jbgxfmgya esterase Test strip Ql (U)NegativeNormalNegSelect Medical Specialty Hospital - Southeast OhioComment on above:Order Comment: Name Collection Type:: Straight CatheterPerformed By: #### UA ####[address] [address] USALeukocyte esterase Test strip Ql (U) Leukocyte esterase [Presence] in Urine by Test stripNegThe Christ HospitalLeukocytes [#/volume] corrected for nucleated erythrocytes in Blood by Automated counOrdered By: Bonilla Rubin on 51-44-6622OFL corrected for nucl RBC Auto (Bld) [#/Vol]8.9 10*3/uL4.1-10.5FOhioHealth Grant Medical Center Leukocytes [#/volume] in Blood by Automated countOrdered By: Bonilla Rubin on 81-56-2936AJS (Bld) [#/Vol]8.9 10*3/uLNormal4.1-10.5FOhioHealth Grant Medical CenterComment on above:Performed By: #### PTT, HS TROP, PT, CMP, CK, CBC ####[place] [facility] Lymphocytes [#/volume] in Blood by Automated countOrdered By: Bonilla Rubin on 83-16-9086Ylhpxlahktb (Bld) [#/Vol]1.2 10*3/uLNormal1.00-4.8Galion HospitalComment on above:Performed By: #### PTT, HS TROP, PT, CMP, CK, CBC ####[place] [address] [address] [facility] Lymphocytes/100 leukocytes in Blood by Automated countOrdered By: Bonilla Rubin on 85-62-9587Ziylzuxmkms/100 WBC (Bld)13.1 %Normal.Galion HospitalComment on above:Performed By: #### PTT, HS TROP, PT, CMP, CK, CBC ####[address] [address] [facility] [Entitic mass] by Automated countOrdered By: Bonilla Rubin on 73-45-3007MAQ (RBC) [Entitic mass]22.7 pgLow27.5-35.2FOhioHealth Grant Medical CenterComment on above:Performed By: #### PTT, HS TROP, PT, CMP, CK, CBC ####[address] [address] [facility] Auto (RBC) [Mass/Vol]Ordered By: Bonilla Rubin on 98-51-8728VRVS (RBC) [Mass/Vol]32.0 g/dL Low32.5-35.6FOhioHealth Grant Medical CenterMCV [Entitic volume] by Automated countOrdered By: Bonilla Rubin on 64-48-1933PQD (RBC) [Entitic vol]71.0 fLLow 83.5-101Galion HospitalComment on above:Performed By: #### PTT, HS TROP, PT, CMP, CK, CBC ####[facility] [address] [place] [address] USAMR head/brain wo conon 66-83-3032UO head/brain wo conNormalAscension Sacred [facility] Physician GroupMonocyte distribution width [Entitic volume] in Blood by AutomatedOrdered By: Bonilla Rubin on 42-20-5645Gzwqtgtz distribution width Auto (Bld) [Entitic vol]18.68 %0.00-20.00Galion HospitalMonocyte distribution width Auto (Bld) [Entitic vol]Monocyte distribution width [Entitic volume] in Blood by Automated0.00-20.00Galion HospitalNeutrophils [#/volume] in Blood by Automated countOrdered By: Bonilla Rubin on 89-29-9168Kwzgexrrwwg (Bld) [#/Vol]6.2 10*3/uLNormal 1.8-7.7FOhioHealth Grant Medical CenterComment on above:Performed By: #### PTT, HS TROP, PT, CMP, CK, CBC ####[facility] [place] [address] USANitrite Test strip Ql (U)Ordered By: Bonilla Rubin on 68-28-5778Ipnrnvb Ql (U)NegativeNegativeGalion HospitalNitrite Ql (U)Nitrite [Presence] in Urine by Test stripNegThe Christ HospitalNo Panel InformationOrdered By: Bonilla Rubin on 03-08-2024 Arterial Blood Base Excess-1.4 mmol/L-3.0-3.0[facility] Arterial Blood Oxygen Content6.4 mmol/LLow6.6-9.7FOhioHealth Grant Medical CenterArterial Blood Oxygen Lomllzinyx08.1 %95.0-100.0Galion HospitalArterial Blood Partial Pressure CO233.3 mm[Hg]Low35.0-45.0Galion HospitalArterial Blood Partial Pressure O292.6 mm[Hg]80.0-100.0 Galion HospitalArterial Blood pH7.447.35-7.45Galion HospitalBlood Gas Critical ValueSee commentGalion HospitalComment on above:Critical Value called on: 03/08/2024 at 15:16 Blood Gas Sample SiteLeKnox Community HospitalFiO221 % [facility]7.447.35-7.45[facility] 33.3 mm[Hg]Low35.0-45.0[facility]92.6 mm[Hg]80.0-100.0 [facility]22.2 mmol/LLow23.0-29.0[facility]-1.4 mmol/L-3.0-3.0[facility]97.1 % 95.0-100.0[facility]6.4 mmol/LLow6.6-9.7FOhioHealth Grant Medical Center23.2 mmol/L23.0-27.0[facility]21 % [facility] HospitalLeft [facility] Hospitalee commentGalion Hospital40.131 mL/MinGalion Hospital44.90Galion HospitalNucleated erythrocytes [Presence] in Blood by Automated countOrdered By: Bonilla Rubin on 33-10-6652Dxakyhtfw RBC Auto Ql (Bld)0.2 /100{WBC}0-0.5FOhioHealth Grant Medical CenterOpiates [Presence] in Urine by Screen methodOrdered By: Bonilla Rubin on 03-08-2024 Opiates Screen Ql (U)NegativeNegativeGalion HospitalOpiates Screen Ql (U)Opiates [Presence] in Urine by Screen methodNegativeGalion HospitalPartial Thromboplastin Timeon 30-75-8506yDKI Coag (Bld) [Time]29.6 mCjwdgv02.1-36.5The [facility] Physician GroupComment on above:Result Comment: A hematocrit value greater than 55% may lead to inaccurate results in coagulation testing. Patients having hematocrit values >55% require a special collection tube for coagulation studies. Please contact the laboratory at [phone] for redraw instructions.PERFORMED BY:[facility], [place] [phone] MEDICAL DIRECTORCLIFFORD LOBATO M.D.Performed By: #### PTT, HS TROP, PT, CMP, CK, CBC ####[address] Phencyclidine Screen Ql (U)Ordered By: Bonilla Rubin on 11-91-1422Lufmrognlbqjo Ql (U)NegativeNegThe Christ HospitalPhencyclidine Ql (U) Phencyclidine [Presence] in Urine by Screen methodNegThe Christ HospitalPlatelet mean volume [Entitic volume] in Blood by Automated count Ordered By: Bonilla Rubin on 66-46-1634Eupsgzfl mean volume (Bld) [Entitic vol] 8.2 fLNormal6.6-10.1FOhioHealth Grant Medical CenterComment on above:Performed By: #### PTT, HS TROP, PT, CMP, CK, CBC ####[place] [address] USAPlatelets [#/volume] in Blood by Automated countOrdered By: Bonilla Rubin on 41-95-1982Zjaqsszeg (Bld) [#/Vol]286 10*3/uL Bbfnhi033-494YzdjduelhGalion HospitalComment on above:Performed By: #### PTT, HS TROP, PT, CMP, CK, CBC ####[place] [address] USAPotassium [Moles/volume] in Serum or PlasmaOrdered By: Bonilla Rubin on 34-19-5071Pwfvjyual [Moles/Vol]4.1 mmol/LNormal3.5-5.1 Galion HospitalComment on above:Performed By: #### PTT, HS TROP, PT, CMP, CK, CBC ####[id number] USAProtein Test strip (U) [Mass/Vol]Ordered By: Bonilla Rubin on 35-14-7912Hfjserr (U) [Mass/Vol]NegativeNegThe Christ HospitalProtein (U) [Mass/Vol]Protein [Mass/volume] in Urine by Test strip NegativeGalion HospitalProtein [Mass/volume] in Serum or PlasmaOrdered By: Bonilla Rubin on 71-83-0855Ktnbhdx [Mass/Vol]7.7 g/dLNormal 6.4-8.9Galion HospitalComment on above:Performed By: #### PTT, HS TROP, PT, CMP, CK, CBC ####[facility] [place] [address] USAProthrombin time (PT)Ordered By: Bonilla Rubin on 20-25-0743XM Coag (PPP) [Time]13.0 sHigh9.0-12.9Galion HospitalComment on above:A hematocrit value greater than 55% may lead to inaccurate results in coagulation testing. Patientshaving hematocrit values >55% require a special collection tube for coagulation studies. Please contact the laboratory at [phone] for redraw instructions.Result Comment: A hematocrit value greater than 55% may lead to inaccurate results in coagulation testing. Patients having hematocrit values >55% require a special collection tube for coagulation studies. Please contact the laboratory at [phone] for redraw instructions.Performed By: #### PTT, HS TROP, PT, CMP, CK, CBC ####[facility] [place] [address] USAPT Coag (PPP) [Time] Prothrombin time (PT)High9.0-12.9Galion HospitalComment on above:A hematocrit value greater than 55% may lead to inaccurate results in coagulation testing. Patientshaving hematocrit values >55% require a special collection tube for coagulation studies. Please contact the laboratory at [phone] for redraw instructions.Respiratory (Upper) Panel, PCRon 03-08-2024 Respiratory (Upper) Panel, PCRNormHCA Florida Bayonet Point Hospital Physician GroupComment on above:Performed By: #### RESP PANEL UPP., BIOFIRECOVNOTDE ####[facility] [place] [address] USARespiratory pathogens DNA and RNA panel - Nasopharynx by NELLY with non-probe detectionOrdered By: Bonilla Rubin on 17-82-2562Jbisfqbjcdu pathogens DNA and RNA panel NELLY+non-probe (Nph)Respiratory pathogens DNA and RNA panel - Nasopharynx by NELLY with non-probe detectionGalion HospitalRespiratory pathogens DNA and RNA panel NELLY+non-probe (Nph)[facility] Centererum globulin measurement by calculation (mass/volume)Ordered By: Bonilla Rubin on 03-08-2024 Globulin (S) [Mass/Vol]3.9 g/dLNormalGalion HospitalComment on above:Performed By: #### PTT, HS TROP, PT, CMP, CK, CBC ####[address] [place] [address] USASerum or plasma albumin/globulin mass ratioOrdered By: Bonilla Rubin on 03-08-2024 Albumin/Globulin [Mass ratio]1.0 {ratio}NormalGalion Hospital Comment on above:Performed By: #### PTT, HS TROP, PT, CMP, CK, CBC ####[place] [address] USASerum or plasma anion gap determinationOrdered By: Bonilla Rubin on 42-24-6850Ctmls gap [Moles/Vol] 14.1 mmol/LNormal6.0-15.0Galion HospitalComment on above: Performed By: #### PTT, HS TROP, PT, CMP, CK, CBC ####[address] [address] USASodium [Moles/volume] in Serum or PlasmaOrdered By: Bonilla Rubin on 91-50-1961Xmygjx [Moles/Vol]141 mmol/LNormal 136-145Galion HospitalComment on above:Performed By: #### PTT, HS TROP, PT, CMP, CK, CBC ####[address] [address] USASpecific gravity Test strip (U) [Rel density]Ordered By: Bonilla Rubin on 68-69-8048Kxcqyrij gravity (U) [Rel density]1.0131.001-1.030 [facility] Centerpecific gravity (U) [Rel density]Specific gravity of Urine by Test strip1.001-1.030[facility] Troponin I High Sensitivityon 87-55-7753Ugfzuomk I High Sensitivity6.1 pg/mL Normal0.0-20.0[facility] Physician GroupComment on above:Result Comment: PERFORMED BY:[address] [place], [place] [phone] MEDICAL DIRECTORCLIFFORD LOBATO M.D.Performed By: #### PTT, HS TROP, PT, CMP, CK, CBC ####[address] [address] USATroponin I.cardiac [Mass/volume] in Serum or Plasma by Detection limit <= 0.01 ng/Ordered By: Bonilla Rubin on 61-08-2646Ojrnouju I.cardiac DL <= 0.01 ng/mL [Mass/Vol]6.1 pg/mL0.0-20.0Galion HospitalTroponin I.cardiac DL <= 0.01 ng/mL [Mass/Vol]Troponin I.cardiac [Mass/volume] in Serum or Plasma by Detection limit <= 0.01 ng/0.0-20.0Galion HospitalUrea nitrogen [Mass/volume] in Serum or PlasmaOrdered By: Bonilla Rubin on 45-74-3214Wzbz nitrogen [Mass/Vol]19 mg/dLNormal12-27 Galion HospitalComment on above:Performed By: #### PTT, HS TROP, PT, CMP, CK, CBC ####[address] [place] [address] USAUrinalysison 25-87-7027Trnsuuaks,UrineNegativeNormal NegativeThe [facility]ty Hospital Physician GroupComment on above:Order Comment: Name Collection Type:: Straight CatheterPerformed By: #### UA ####[address] [address] USAGlucose Ql (U)>=1000HighNormal [facility] Physician GroupComment on above:Order Comment: Name Collection Type:: Straight CatheterPerformed By: #### UA ####[address] [address] USANitrite,UrineNegativeNormalNegativeAscension Sacred [facility] Coast Physician GroupComment on above:Order Comment: Name Collection Type:: Straight CatheterPerformed By: #### UA ####[address] [address] USAOccult Blood,UrineNegativeNormalNegativeThe [facility] Physician GroupComment on above:Order Comment: Name Collection Type:: Straight CatheterResult Comment: PERFORMED BY:[address] [place], [place] [phone] MEDICAL DIRECTORCLIFFORD LOBATO M.D.Performed By: #### UA ####[address] [address] USAProtein,UrineNegativeNormalNegativeAscension Sacred [facility] Coast Physician GroupComment on above:Order Comment: Name Collection Type:: Straight CatheterPerformed By: #### UA ####[place] [address] USASpecificy Perry,Urine1.363Wdxbsx8.001-1.030 [facility] Physician GroupComment on above:Order Comment: Name Collection Type:: Straight CatheterPerformed By: #### UA ####[address] [address] USAUrobilinogen,UrineNormalNormalNormal [facility] Physician GroupComment on above:Order Comment: Name Collection Type:: Straight CatheterPerformed By: #### UA ####[address] [address] USAUrine appearanceOrdered By: Bonilla Rubin on 78-69-7787Wnnlibhrff (U)ClearNormalClearGalion HospitalComment on above:Order Comment: Name Collection Type:: Straight Catheter Performed By: #### UA ####[place] [address] USAUrobilinogen Test strip (U) [Mass/Vol]Ordered By: Bonilla Rubin on 52-19-7514Qltqhzlpwuiy (U) [Mass/Vol]Normal mg/dLNormal Galion HospitalUrobilinogen (U) [Mass/Vol]Urobilinogen [Mass/volume] in Urine by Test stripNormalGalion HospitalXR chest 1V portableon 36-99-2254XB chest 1V portableNoThe Outer Banks Hospital Physician GroupaPTT in Platelet poor plasma by Coagulation assayOrdered By: Bonilla Rubin on 55-59-7861tSWJ Coag (PPP) [Time]Activated partial thromboplastin time (aPTT) in platelet poor plasma by coagulation a25.1-36.5FOhioHealth Grant Medical CenterComment on above:A hematocrit value greater than 55% may lead to inaccurate results in coagulation testing. Patientshaving hematocrit values >55% require a special collection tube for coagulation studies. Please contact the laboratory at [phone] for redraw instructions.pH Test strip (U)Ordered By: Bonilla Rubin on 47-24-9689yE (U)pH of Urine by Test strip5.0-9.0Galion HospitalpH of Urine by Test stripOrdered By: Bonilla Rubin on 87-70-0879oW (U)5.0 [pH]Normal5.0-9.0Galion HospitalComment on above:Order Comment: Name Collection Type:: Straight CatheterPerformed By: #### UA ####[facility] [address] [place] [address] [place] Alanine aminotransferase [Enzymatic activity/volume] in Serum or PlasmaOrdered By: João Powell on 99-17-6039CCK [Catalytic activity/Vol]11 U/LNormal Galion HospitalComment on above:Performed By: #### MG, PHOS, CMP, DIFF CBC ####[facility] [address] [place] [address] USAALT [Catalytic activity/Vol]Alanine aminotransferase [Enzymatic activity/volume] in Serum or PlasmaGalion HospitalAlbumin [Mass/volume] in Serum or Plasma by Bromocresol green (BCG) dye binding metho Ordered By: João Powell on 16-50-3958Jhklorh BCG dye [Mass/Vol]3.3 g/dLLow 3.5-5.7Firelands Regional Medical CenterAlbumin BCG dye [Mass/Vol]Albumin [Mass/volume] in Serum or Plasma by Bromocresol green (BCG) dye binding methoLow 3.5-5.7FOhioHealth Grant Medical CenterAlkaline phosphatase [Enzymatic activity/volume] in Serum or PlasmaOrdered By: João Powell on 61-39-8554LFC [Catalytic activity/Vol]101 U/FVgtklk70-326XlcrqyiktGalion Hospital Comment on above:Performed By: #### MG, PHOS, CMP, DIFF CBC ####[address] [address] [place] [address] USAALP [Catalytic activity/Vol]Alkaline phosphatase [Enzymatic activity/volume] in Serum or Plasma 34-104Galion HospitalAnisocytosis LM Ql (Bld)Ordered By: João Powell on 85-91-3518Hxefordypajy Ql (Bld)Anisocytosis [Presence] in Blood by Light microscopyGalion HospitalAnisocytosis [Presence] in Blood by Light microscopyOrdered By: João Powell on 48-63-8322Wfvkjarkdblb Ql (Bld)MarkedNormalGalion HospitalComment on above:Performed By: #### MG, PHOS, CMP, DIFF CBC ####[place] [address] USAAspartate aminotransferase [Enzymatic activity/volume] in Serum or PlasmaOrdered By: João Powell on 63-72-5971YYS [Catalytic activity/Vol]14 U/BSbfoca39-85Imgxesce[address] Comment on above:Performed By: #### MG, PHOS, CMP, DIFF CBC ####[place] [address] USAAST [Catalytic activity/Vol]Aspartate aminotransferase [Enzymatic activity/volume] in Serum or Bdenut96-12YbjnqiiexGalion HospitalBasophils Auto (Bld) [#/Vol]Ordered By: João Powell on 58-52-1449Urmldzpqi (Bld) [#/Vol]N/AFOhioHealth Grant Medical CenterBasophils (Bld) [#/Vol]Automated basophil countGalion HospitalBasophils/100 WBC Auto (Bld)Ordered By: João Powell on 03-06-2024 Basophils/100 WBC (Bld)N/AFOhioHealth Grant Medical CenterBasophils/100 WBC (Bld)Automated basophil %Galion HospitalBasophils/100 WBC Manual cnt (Bld)Ordered By: João Powell on 65-54-3279Yltxnvguz/100 WBC (Bld) Basophils/100 leukocytes in Blood by Manual count0[facility] Medical CenterBasophils/100 leukocytes in Blood by Manual countOrdered By: João Powell on 79-42-2881Cwxcjcezd/100 WBC (Bld)1 %Normal0[facility] Grant Medical CenterComment on above:Performed By: #### MG, PHOS, CMP, DIFF CBC ####[facility] [address] [place], [place] [address] USABilirubin.total [Mass/volume] in Serum or PlasmaOrdered By: João Powell on 44-74-4194Fstjrrmsu [Mass/Vol]0.4 mg/dLNoselect specialty hospital0.3-1.0Galion HospitalComment on above:Performed By: #### MG, PHOS, CMP, DIFF CBC ####[place] [id number] USABilirubin [Mass/Vol]Bilirubin.total [Mass/volume] in Serum or Plasma0.3-1.0[facility] HospitalCalcium [Mass/volume] in Serum or PlasmaOrdered By: João Powell on 43-85-2308Jcxcmib [Mass/Vol]8.7 mg/dLNormal8.6-10.3FOhioHealth Grant Medical CenterComment on above:Performed By: #### MG, PHOS, CMP, DIFF CBC ####[place] [address] USACalcium [Mass/Vol]Calcium [Mass/volume] in Serum or Plasma8.6-10.3FOhioHealth Grant Medical Center Capillary blood glucose measurement by glucometer (mass/volume)Ordered By: João Powell on 06-39-2456Wypkuem [Mass/Vol]169 mg/dLNormalGalion HospitalComment on above:Random Glucose Reference Range is dependent on time and content of last meal. Glucose of more than 200 mg/dL in a nonstressed, ambulatory subject supports the diagnosis of Diabetes Mellitus.Result Comment: Random Glucose Reference Range is dependent on time and content of last meal. Glucose of more than 200 mg/dL in a nonstressed, ambulatory subject supports the diagnosis of Diabetes Mellitus.PERFORMED BY:[address] [place], [place] [phone] MEDICAL DIRECTORCLIFFORD LOBATO M.D.Performed By: #### GLULS ####Point of Care testing, Carbon dioxide, total [Moles/volume] in Serum or PlasmaOrdered By: João Powell on 42-33-6939XD1 [Moles/Vol]24.3 mmol/WKaacjt50.0-31.0Galion HospitalComment on above:Performed By: #### MG, PHOS, CMP, DIFF CBC ####[facility] [place] [address] USACO2 [Moles/Vol] Carbon dioxide, total [Moles/volume] in Serum or Mqvlbq21.0-31.0[facility] HospitalChloride [Moles/volume] in Serum or PlasmaOrdered By: João Powell on 15-01-2353Zgtqxhbg [Moles/Vol]107 mmol/XSsryby21-771BopiucuwgGalion HospitalComment on above:Performed By: #### MG, PHOS, CMP, DIFF CBC ####[facility] [address] [place] [address] [place] Chloride [Moles/Vol]Chloride [Moles/volume] in Serum or Ktuzcw08-136RcysqfbvvGalion HospitalComprehensive Metabolic Panelon 26-02-0450Tulgnex [Mass/Vol]3.3 g/dLLow3.5-5.7The [facility] Physician GroupComment on above: Performed By: #### MG, PHOS, CMP, DIFF CBC ####[facility] [address] [place] [address] USACreatinine Clr Calc Zwkjlahk89.24 NormalThe [facility] Hospital Physician GroupComment on above:Performed By: #### MG, PHOS, CMP, DIFF CBC ####[address] [address] USAGFR/1.73 sq M.predicted MDRD (S/P/Bld) [Vol rate/Area]57.276 mL/min/{1.73_m2}[facility] Physician [facility] HospitalComment on above:Performed By: #### MG, PHOS, CMP, DIFF CBC ####[address] [address] USACreatinine [Mass/volume] in Serum or PlasmaOrdered By: João Powell on 45-06-7581Quvamlgjzp [Mass/Vol]1.42 mg/dLHigh0.70-1.30 [facility] HospitalComment on above:Performed By: #### MG, PHOS, CMP, DIFF CBC ####[place] [id number] USACreatinine [Mass/Vol]Creatinine [Mass/volume] in Serum or PlasmaHigh 0.70-1.30Galion HospitalDacrocytes [Presence] in Blood by Light microscopyOrdered By: João Powell on 12-10-5274Cooevzugbm LM Ql (Bld) Teardrop cell detectionGalion HospitalDiff and CBCon 67-44-1047DpemmrxwkeajoLfnxivFqtnipLsb [place] Physician [facility] HospitalComment on above:Performed By: #### MG, PHOS, CMP, DIFF CBC ####[address] [address] USALarge PlateletsSSage Memorial HospitalComment on above:Result Comment: PERFORMED BY:[address] [place], [place] [phone] MEDICAL DIRECTORCLIFFORD LOBATO M.D.Performed By: #### MG, PHOS, CMP, DIFF CBC ####[address] [address] USAMean Corpuscular HGB Conc32.0 g/dLLow32.5-35.6The [facility] Physician GroupComment on above:Performed By: #### MG, PHOS, CMP, DIFF CBC ####[place] [address] USAMicrocytosisSAtrium Health Physician GroupComment on above:Performed By: #### MG, PHOS, CMP, DIFF CBC ####[place] [address] [place] Platelet EstimateNormalNormalAdventHealth [facility] Physician GroupComment on above:Performed By: #### MG, PHOS, CMP, DIFF CBC ####[place] [address] USAPolychromasiaSAtrium Health Physician GroupComment on above:Performed By: #### MG, PHOS, CMP, DIFF CBC ####[place] [address] USATear Drop CellsSlightAdventHealth Palm Coast Parkway Physician GroupComment on above:Performed By: #### MG, PHOS, CMP, DIFF CBC ####[place] [address] USAEosinophils Auto (Bld) [#/Vol]Ordered By: João Powell on 60-94-2731Nbviuahgmky (Bld) [#/Vol]N/[facility] Eosinophils (Bld) [#/Vol]Automated eosinophil countGalion HospitalEosinophils/100 WBC Auto (Bld)Ordered By: João Powell on 03-06-2024 Eosinophils/100 WBC (Bld)N/[facility] HospitalEosinophils/100 WBC (Bld)Automated eosinophil %Galion HospitalEosinophils/100 WBC Manual cnt (Bld)Ordered By: João Powell on 17-97-0019Jzpdtezoaqj/100 WBC (Bld) Eosinophils/100 leukocytes in Blood by Manual count1-3FOhioHealth Grant Medical CenterEosinophils/100 leukocytes in Blood by Manual countOrdered By: João Powell on 14-98-9596Ubrmtbxtrqk/100 WBC (Bld)1 %Normal1-3FOhioHealth Grant Medical CenterComment on above:Performed By: #### MG, PHOS, CMP, DIFF CBC ####[address] Erythrocyte distribution width Auto (RBC) [Ratio]Ordered By: João Powell on 54-07-5688Askidmefjhr distribution width (RBC) [Ratio]Erythrocyte distribution width [Ratio] by Automated yonlbLulb97.0-14.8[facility] Erythrocyte distribution width [Ratio] by Automated countOrdered By: João Powell on 59-35-3779Wrfklovtsxf distribution width (RBC) [Ratio]21.1 %High 12.0-14.8Gal[facility] HospitalComment on above:Performed By: #### MG, PHOS, CMP, DIFF CBC ####[address] StreetErythrocyte morphology finding [Identifier] in Blood Ordered By: João Powell on 94-07-1571HQH morphology finding Nom (Bld)RBC morphologyGalion HospitalErythrocytes [#/volume] in Blood by Automated countOrdered By: João Powell on 66-89-0015DHQ (Bld) [#/Vol]3.68 10*6/uLLow3.90-5.60Gal[facility] HospitalComment on above:Performed By: #### MG, PHOS, CMP, DIFF CBC ####[place] [address] USAGlobulin Calc (S) [Mass/Vol]Ordered By: Jãoo Powell on 88-61-3619Tskfxzrw (S) [Mass/Vol]Serum globulin measurement by calculation (mass/volume)Galion HospitalGlucose Glucometer (BldC) [Mass/Vol]Ordered By: João Powell on 59-28-0644Ocymlys [Mass/Vol]Capillary blood glucose measurement by glucometer (mass/volume)Galion HospitalComment on above:Random Glucose Reference Range is dependent on time and content of last meal. Glucose of more than 200 mg/dL in a nonstressed, ambulatory subject supports the diagnosis of Diabetes Mellitus.Glucose Poct Glucometerson 57-67-9145Ufarzbc [Mass/Vol]128 mg/dLNoThe [facility]er [facility] Hospital Physician GroupComment on above:Result Comment: Random Glucose Reference Range is dependent on time and content of last meal. Glucose of more than 200 mg/dL in a nonstressed, ambulatory subject supports the diagnosis of Diabetes Evelyn litus.PERFORMED BY:[facility] [place], [place] [phone] MEDICAL DIRECTORCLIFFORD LOBATO M.D.Performed By: #### GLULS ####Point of Care testing,Glucose [Mass/volume] in Serum or PlasmaOrdered By: João Powell on 42-27-8696Qxroprv [Mass/Vol]99 mg/jNOczuav71-473QjwrftaouGalion HospitalComment on above:ADA recommended reference rangeRandom Glucose [...] By: #### MG, PHOS, CMP, DIFF CBC ####[facility] [address] [place] [address] USAGlucose [Mass/Vol]Glucose [Mass/volume] in Serum or Ijjnty74-784KsynjjkqmGalion HospitalComment on above:ADA recommended reference rangeRandom Glucose Reference Range is dependent on time and content of last meal. Glucose of more than 200 mg/dL in a nonstressed, ambulatory subject supports the diagnosisof Diabetes Mellitus.Hematocrit Auto (Bld) [Volume fraction]Ordered By: João Powell on 09-60-6653Barjuldpgg (Bld) [Volume fraction]Hematocrit [Volume Fraction] of Blood by Automated zhvatVqv08.8-50.0[facility] Hematocrit [Volume Fraction] of Blood by Automated countOrdered By: João Powell on 69-49-7758Oqtealrsni (Bld) [Volume fraction]25.8 %Low38.8-50.0Gal[facility] HospitalComment on above:Performed By: #### MG, PHOS, CMP, DIFF CBC ####[facility] [address] Hemoglobin [Mass/volume] in BloodOrdered By: João Powell on 03-06-2024 Hemoglobin (Bld) [Mass/Vol]8.3 g/dLLow13.0-17.0[facility] Comment on above:Performed By: #### MG, PHOS, CMP, DIFF CBC ####[facility] [address] [place] [id number] USAHemoglobin (Bld) [Mass/Vol]Hemoglobin [Mass/volume] in WcbksWjc63.0-17.0[facility] HospitalHypochromia LM Ql (Bld)Ordered By: João Powell on 03-06-2024 Hypochromia Ql (Bld)SlightGalion HospitalHypochromia Ql (Bld) Hypochromia [Presence] in Blood by Light microscopyGalion HospitalLeukocytes [#/volume] corrected for nucleated erythrocytes in Blood by Automated counOrdered By: João Powell on 87-03-3520WIL corrected for nucl RBC Auto (Bld) [#/Vol]6.8 10*3/uL4.1-10.5FOhioHealth Grant Medical CenterWBC corrected for nucl RBC Auto (Bld) [#/Vol]Leukocytes [#/volume] corrected for nucleated erythrocytes in Blood by Automated coun4.1-10.5FOhioHealth Grant Medical CenterLeukocytes [#/volume] in Blood by Automated countOrdered By: João Powell on 77-44-1845VTF (Bld) [#/Vol]6.8 10*3/uLNormal4.1-10.5FOhioHealth Grant Medical CenterComment on above:Performed By: #### MG, PHOS, CMP, DIFF CBC ####[facility] [address] [place] [address] [facility] Lymphocytes Auto (Bld) [#/Vol]Ordered By: João Powell on 06-98-0299Ktfpznhlxdq (Bld) [#/Vol]N/[facility] HospitalLymphocytes (Bld) [#/Vol] Lymphocytes [#/volume] in Blood by Automated countGalion HospitalLymphocytes/100 WBC Auto (Bld)Ordered By: João Powell on 03-06-2024 Lymphocytes/100 WBC (Bld)N/[facility] HospitalLymphocytes/100 WBC (Bld)Lymphocytes/100 leukocytes in Blood by Automated countGalion HospitalLymphocytes/100 WBC Manual cnt (Bld)Ordered By: João Powell on 51-91-6319Igiwsmjhblr/100 WBC (Bld)Lymphocytes/100 leukocytes in Blood by Manual -17OwnijyurpGalion HospitalLymphocytes/100 leukocytes in Blood by Manual countOrdered By: João Powell on 80-85-3377Nkcfrqicknv/100 WBC (Bld)18 %Vtvved38-80VlevfaequGalion HospitalComment on above:Performed By: #### MG, PHOS, CMP, DIFF CBC ####[facility] [address] [place] [address] [facility] Auto (RBC) [Entitic mass]Ordered By: João Powell on 48-88-7664JPB (RBC) [Entitic mass]MCH [Entitic mass] by Automated count Low27.5-35.2FNationwide Children's Hospital [Entitic mass] by Automated countOrdered By: João Powell on 60-58-2502DKH (RBC) [Entitic mass]22.4 pgLow 27.5-35.2FOhioHealth Grant Medical CenterComment on above:Performed By: #### MG, PHOS, CMP, DIFF CBC ####[place] [address] [facility] Auto (RBC) [Mass/Vol]Ordered By: João Powell on 55-91-8344KDBJ (RBC) [Mass/Vol]32.0 g/dLLow32.5-35.6FCity Hospital (RBC) [Mass/Vol]MCHC [Mass/volume] by Automated countLow 32.5-35.6FOhioHealth Grant Medical CenterMCV Auto (RBC) [Entitic vol]Ordered By: João Powell on 64-32-2722BSD (RBC) [Entitic vol]MCV [Entitic volume] by Automated fyrioMud20.5-101Galion HospitalMCV [Entitic volume] by Automated countOrdered By: João Powell on 41-82-4288NZX (RBC) [Entitic vol] 70.[address] [place], [place] [address]Comment on above:Performed By: #### MG, PHOS, CMP, DIFF CBC ####[address] [address] USAMagnesium [Mass/volume] in Serum or PlasmaOrdered By: João Powell on 57-04-8470Mdrkszhaz [Mass/Vol]1.6 mg/dLLow1.9-2.7FOhioHealth Grant Medical CenterComment on above:Result Comment: PERFORMED BY:[address] [place], [place] [phone] MEDICAL DIRECTORCLIFFORD LOBATO M.D.Performed By: #### MG, PHOS, CMP, DIFF CBC ####[address] [address] [place] Magnesium [Mass/Vol]Magnesium [Mass/volume] in Serum or PlasmaLow1.9-2.7 [facility] HospitalManual blood segmented neutrophils/100 leukocytesOrdered By: João Powell on 89-52-6406Twdqdufqu neutrophils/100 WBC (Bld)72 %Lvto17-14LvgpnrwwsGalion HospitalComment on above:Performed By: #### MG, PHOS, CMP, DIFF CBC ####[address] [address] USAMicrocytes LM Ql (Bld)Ordered By: João Powell on 49-23-2977Crfeubwoyd Ql (Bld)SlightGalion HospitalMicrocytes Ql (Bld)Microcytes [Presence] in Blood by Light microscopyGalion HospitalMonocytes Auto (Bld) [#/Vol]Ordered By: João Powell on 03-06-2024 Monocytes (Bld) [#/Vol]N/[facility] HospitalMonocytes (Bld) [#/Vol]Automated blood monocyte countGalion Hospital Monocytes/100 WBC Auto (Bld)Ordered By: João Powell on 42-45-6586Silegszhn/100 WBC (Bld)N/[facility] HospitalMonocytes/100 WBC (Bld)Automated monocyte %Galion HospitalMonocytes/100 WBC Manual cnt (Bld) Ordered By: João Powell on 31-82-4144Pgwycjjtq/100 WBC (Bld)Monocytes/100 leukocytes in Blood by Manual count[address] Monocytes/100 leukocytes in Blood by Manual countOrdered By: João Powell on 94-08-8396Cleaafkkv/100 WBC (Bld)8 %Normal[address] Comment on above:Performed By: #### MG, PHOS, CMP, DIFF CBC ####[facility] [address] [place] [address] USANeutrophils Auto (Bld) [#/Vol]Ordered By: João Powell on 09-13-8851Hxpwulzlfvn (Bld) [#/Vol]N/A [facility] HospitalNeutrophils (Bld) [#/Vol]Neutrophils [#/volume] in Blood by Automated countGalion HospitalNeutrophils/100 WBC Auto (Bld)Ordered By: João Powell on 89-02-3345Qyfvtnwdfec/100 WBC (Bld)N/A [facility] HospitalNeutrophils/100 WBC (Bld)Automated neutrophil % Galion HospitalNo Panel InformationOrdered By: João Powell on 29-09-6920Aacamztgy GFR (CKD-EPI)57.276 mL/[facility] Creatinine Clearance (Chem62.24[facility]57.276 mL/[facility]62.24[facility] Nucleated erythrocytes [Presence] in Blood by Automated countOrdered By: João Powell on 35-01-5048Onjermwbw RBC Auto Ql (Bld)N/AFOhioHealth Grant Medical CenterNucleated RBC Auto Ql (Bld)Nucleated erythrocytes [Presence] in Blood by Automated countGalion HospitalPhosphate [Mass/volume] in Serum or PlasmaOrdered By: João Powell on 41-02-6809Rkbgmeaul [Mass/Vol]3.2 mg/dL Normal2.5-4.5FOhioHealth Grant Medical CenterComment on above:Performed By: #### MG, PHOS, CMP, DIFF CBC ####[facility] [address] [place] [address] USAPhosphate [Mass/Vol]Phosphate [Mass/volume] in Serum or Plasma2.5-4.5FOhioHealth Grant Medical CenterPlatelet adequacy [Presence] in Blood by Light microscopyOrdered By: João Powell on 50-04-8649Xmzfbxais LM Ql (Bld)NormalNormShelby Memorial HospitalPlatelets LM Ql (Bld) Platelet adequacy [Presence] in Blood by Light microscopyNoOhio State Harding HospitalPlatelet mean volume Auto (Bld) [Entitic vol]Ordered By: João Powell on 27-72-6249Yfejenig mean volume (Bld) [Entitic vol]Platelet mean volume [Entitic volume] in Blood by Automated count6.6-10.1FOhioHealth Grant Medical CenterPlatelet mean volume [Entitic volume] in Blood by Automated count Ordered By: João Powell on 17-07-6739Texofxmb mean volume (Bld) [Entitic vol] 8.1 fLNormal6.6-10.1FOhioHealth Grant Medical CenterComment on above:Performed By: #### MG, PHOS, CMP, DIFF CBC ####[facility] [address] [place] [address] USAPlatelet morphology finding [Identifier] in Blood Ordered By: João Powell on 72-13-6706Vsixpouq morphology finding Nom (Bld)N/A [facility] HospitalPlatelet morphology finding Nom (Bld)Platelet morphology finding [Identifier] in BloodGalion Hospital Platelets Auto (Bld) [#/Vol]Ordered By: João Powell on 34-89-8183Weefxbrxx (Bld) [#/Vol]Platelets [#/volume] in Blood by Automated -753JirnzgbzdGalion HospitalPlatelets Large [Presence] in Blood by Light microscopy Ordered By: João Powell on 65-29-9352Ylgabprcl Large LM Ql (Bld)[facility] Orthopedic CenterPlatelets Large LM Ql (Bld)Platelets Large [Presence] in Blood by Light microscopyGalion HospitalPlatelets [#/volume] in Blood by Automated countOrdered By: João Powell on 72-93-9941Hzxdzkmxf (Bld) [#/Vol]325 10*3/sXFnokot789-163TqwpbvaokGalion HospitalComment on above:Performed By: #### MG, PHOS, CMP, DIFF CBC ####[facility] [address] [place] [address] USAPolychromasia [Presence] in Blood by Light microscopyOrdered By: João Powell on 03-46-9918Cpdnloqcfudpo LM Ql (Bld) [facility] Orthopedic CenterPolychromasia LM Ql (Bld)Polychromasia [Presence] in Blood by Light microscopyGalion Hospital Potassium [Moles/volume] in Serum or PlasmaOrdered By: João Powell on 43-06-0522Hxhuckapx [Moles/Vol]4.2 mmol/LNormal3.5-5.1FOhioHealth Grant Medical CenterComment on above:Performed By: #### MG, PHOS, CMP, DIFF CBC ####[facility] [address] [place], [place] [address] USAPotassium [Moles/Vol]Potassium [Moles/volume] in Serum or Plasma3.5-5.1FOhioHealth Grant Medical CenterProtein [Mass/volume] in Serum or PlasmaOrdered By: João Powell on 70-76-5226Qhfmrmp [Mass/Vol]6.1 g/dLLow6.4-8.9[facility] HospitalComment on above:Performed By: #### MG, PHOS, CMP, DIFF CBC ####[place] [id number] USAProtein [Mass/Vol] Protein [Mass/volume] in Serum or PlasmaLow6.4-8.9[facility] Auto (Bld) [#/Vol]Ordered By: João Powell on 07-25-0222MAG (Bld) [#/Vol]Erythrocytes [#/volume] in Blood by Automated countLow3.90-5.60[facility] morphologyOrdered By: João Powell on 11-52-6612CQK morphology finding Nom (Bld)N/AFMary Rutan Hospitalegmented neutrophils/100 WBC Manual cnt (Bld)Ordered By: João Powell on 03-06-2024 Segmented neutrophils/100 WBC (Bld)Manual blood segmented neutrophils/100 fzxtuqvajsHnnd49-62HzkcckntkSouthern Ohio Medical Centererum globulin measurement by calculation (mass/volume)Ordered By: João Powell on 45-62-6108Lwfhpdke (S) [Mass/Vol]2.8 g/dLNormalGalion HospitalComment on above: Performed By: #### MG, PHOS, CMP, DIFF CBC ####[facility] [address] [place] [address] USASerum or plasma albumin/globulin mass ratioOrdered By: João Powell on 28-50-7977Piboizf/Globulin [Mass ratio]1.2 {ratio}NormalGalion HospitalComment on above:Performed By: #### MG, PHOS, CMP, DIFF CBC ####[address] [address] USAAlbumin/Globulin [Mass ratio]Serum or plasma albumin/globulin mass ratioSouthern Ohio Medical Centererum or plasma anion gap determinationOrdered By: João Powell on 89-08-1826Gxbrr gap [Moles/Vol]9.9 mmol/LNormal6.0-15.0[facility] HospitalComment on above:Performed By: #### MG, PHOS, CMP, DIFF CBC ####[place] [address] [place] [address] USAAnion gap [Moles/Vol]Serum or plasma anion gap determination6.0-15.0Southern [facility] Medical Centerodium [Moles/volume] in Serum or PlasmaOrdered By: João Powell on 61-79-7225Pzjoon [Moles/Vol]137 mmol/GKxcsvg771-071EmhlotnhnGalion HospitalComment on above:Performed By: #### MG, PHOS, CMP, DIFF CBC ####[place] [address] [place] [address] USASodium [Moles/Vol]Sodium [Moles/volume] in Serum or Wiwbby763-027UjgrpafdxGalion Hospital Teardrop cell detectionOrdered By: João Powell on 56-48-4964Yxiogijuaf LM Ql (Bld)SlightGalion HospitalUrea nitrogen [Mass/volume] in Serum or PlasmaOrdered By: João Powell on 80-95-4585Alrv nitrogen [Mass/Vol]17 mg/dL Normal12-27Galion HospitalComment on above:Performed By: #### MG, PHOS, CMP, DIFF CBC ####[place] [address] [place] [address] USAUrea nitrogen [Mass/Vol]Urea nitrogen [Mass/volume] in Serum or Plasma12-27Galion HospitalWBC Auto (Bld) [#/Vol] Ordered By: João Powell on 45-46-1958UEI (Bld) [#/Vol]Leukocytes [#/volume] in Blood by Automated count4.1-10.5FOhioHealth Grant Medical CenterComplete Blood Count Auto Diffon 05-94-3146Jglzzureo (Bld) [#/Vol]0.1 10*3/uLNormal0.0-0.2The [facility] Physician GroupComment on above:Result Comment: PERFORMED BY:[place] [address] [address] [place] [place], [place] [phone] MEDICAL DIRECTORCLIFFORD LOBATO M.D.Performed By: #### PHOS, MG, CBC, CMP ####[place] [address] [place] [address] [place] Basophils/100 WBC (Bld)1.1 %Normal.The [facility] Physician GroupComment on above:Performed By: #### PHOS, MG, CBC, CMP ####[place] [address] USAEosinophils (Bld) [#/Vol]0.2 10*3/uL Normal0.0-0.45The [facility] Hospital Physician GroupComment on above:Performed By: #### PHOS, MG, CBC, CMP ####[place] [address] USAEosinophils/100 WBC (Bld)2.8 %Normal.The [facility] Physician Group Comment on above:Performed By: #### PHOS, MG, CBC, CMP ####[place] [address] USAErythrocyte distribution width (RBC) [Ratio]21.4 %High12.0-14.8The [facility] Hospital Physician GroupComment on above: Performed By: #### PHOS, MG, CBC, CMP ####[place] [address] USAHematocrit (Bld) [Volume fraction]26.8 %Low 38.8-50.0The [facility] Physician GroupComment on above:Performed By: #### PHOS, MG, CBC, CMP ####[place] [address] USAHemoglobin (Bld) [Mass/Vol]8.6 g/dLLow13.0-17.0The [facility] Physician GroupComment on above:Performed By: #### PHOS, MG, CBC, CMP ####[place] [address] USALymphocytes (Bld) [#/Vol]1.3 10*3/uLNormal1.00-4.8The [facility] Hospital Physician GroupComment on above: Performed By: #### PHOS, MG, CBC, CMP ####[place] [address] USALymphocytes/100 WBC (Bld)16.1 %Normal.The [facility] Physician GroupComment on above:Performed By: #### PHOS, MG, CBC, CMP ####[address] (RBC) [Entitic mass]22.4 pgLow27.5-35.2The [facility] Physician GroupComment on above:Performed By: #### PHOS, MG, CBC, CMP ####[address]V (RBC) [Entitic vol]70.1 fLLow 83.5-101The [facility] Hospital Physician GroupComment on above:Performed By: #### PHOS, MG, CBC, CMP ####[address] Corpuscular HGB Conc31.9 g/dLLow32.5-35.6The [facility] Physician GroupComment on above:Performed By: #### PHOS, MG, CBC, CMP ####[place] [address] USAMonocytes (Bld) [#/Vol]1.0 10*3/uLHigh0.0-0.8The [facility] Physician GroupComment on above: Performed By: #### PHOS, MG, CBC, CMP ####[place] [address] USAMonocytes/100 WBC (Bld)12.4 %Normal.The [facility] Physician GroupComment on above:Performed By: #### PHOS, MG, CBC, CMP ####[address] Neutrophils (Bld) [#/Vol]5.6 10*3/uLNormal1.8-7.7The [facility] Physician Group Comment on above:Performed By: #### PHOS, MG, CBC, CMP ####[place] [address] USANeutrophils/100 WBC (Bld)67.6 %Normal.The [facility] Physician GroupComment on above:Performed By: #### PHOS, MG, CBC, CMP ####[place] [address] USANRBC%0.0 /100{WBC}Normal0-0.5The [facility] Physician GroupComment on above:Performed By: #### PHOS, MG, CBC, CMP ####[place] [address] USAPlatelet mean volume (Bld) [Entitic vol]7.9 fLNormal6.6-10.1The [facility] Physician GroupComment on above:Performed By: #### PHOS, MG, CBC, CMP ####[place] [address] USAPlatelets (Bld) [#/Vol]361 10*3/nTZlrmqu157-297Yud [facility] Physician GroupComment on above:Performed By: #### PHOS, MG, CBC, CMP ####[place] [address] USARBC (Bld) [#/Vol]3.83 10*6/uLLow3.90-5.60The [facility] Physician GroupComment on above:Performed By: #### PHOS, MG, CBC, CMP ####[place] [address] USAWBC (Bld) [#/Vol]8.3 10*3/uLNormal 4.1-10.5The [facility] Physician GroupComment on above:Performed By: #### PHOS, MG, CBC, CMP ####[place] [address] USAComprehensive Metabolic Panelon 61-19-3684Exxpbrz [Mass/Vol]3.3 g/dLLow 3.5-5.7The [facility] Physician GroupComment on above:Performed By: #### PHOS, MG, CBC, CMP ####[place] [address] USAAlbumin/Globulin [Mass ratio]1.2 {ratio}NormalThe [facility] Physician GroupComment on above:Performed By: #### PHOS, MG, CBC, CMP ####[address] [place] [address] USAALP [Catalytic activity/Vol]98 U/NWxypxj80-263Yyp [facility] Physician GroupComment on above: Performed By: #### PHOS, MG, CBC, CMP ####[address] [place] [address] USAALT [Catalytic activity/Vol]10 U/LNormal7-52 The [facility] Physician GroupComment on above:Performed By: #### PHOS, MG, CBC, CMP ####[address] [place] [address] [place] Anion gap [Moles/Vol]9.9 mmol/LNormal6.0-15.0The [facility] Comment on above:Performed By: #### PHOS, MG, CBC, CMP ####[address] [address] USAAST [Catalytic activity/Vol]14 U/YTxyysn45-47Dsl [facility] Physician GroupComment on above:Performed By: #### PHOS, MG, CBC, CMP ####[address] [address] USABilirubin [Mass/Vol]0.3 mg/dLNormal0.3-1.0The [facility] Physician GroupComment on above:Performed By: #### PHOS, MG, CBC, CMP ####[address] [address] USACalcium [Mass/Vol]8.6 mg/dLNormal8.6-10.3The [facility] Physician GroupComment on above:Performed By: #### PHOS, MG, CBC, CMP ####[address] [address] USAChloride [Moles/Vol]107 mmol/PCzxwxy83-844Vat [facility] Physician GroupComment on above:Performed By: #### PHOS, MG, CBC, CMP ####[address] [address] USACO2 [Moles/Vol]25.2 mmol/JAklxup79.0-31.0The [facility] Physician GroupComment on above:Performed By: #### PHOS, MG, CBC, CMP ####[place] [address] USACreatinine [Mass/Vol]1.49 mg/dLHigh 0.70-1.30The [facility] Physician [facility] HospitalComment on above:Performed By: #### PHOS, MG, CBC, CMP ####[place] [address] USACreatinine Clr Calc Fscludkb33.31NoThe [facility] Comment on above:Performed By: #### PHOS, MG, CBC, CMP ####[place] [address] USAGFR/1.73 sq M.predicted MDRD (S/P/Bld) [Vol rate/Area]54.062 mL/min/{1.73_m2}NormalThe [facility] Physician GroupComment on above:Performed By: #### PHOS, MG, CBC, CMP ####[place] [address] USAGlobulin (S) [Mass/Vol]2.8 g/dLAdventHealth Palm Coast Parkway Physician [facility] Rehabilitation HospitalComment on above:Performed By: #### PHOS, MG, CBC, CMP ####[place] [address] USAGlucose [Mass/Vol]105 mg/sSFnud34-140Azf [facility] Physician GroupComment on above:Result Comment: Random Glucose Reference Range is dependent on time and content of last meal. Glucose of more than 200 mg/dL in a nonstressed, ambulatory subject supports the diagnosis of Diabetes Mellitus. ADA recommended reference rangePerformed By: #### PHOS, MG, CBC, CMP ####[place] [address] [place] Potassium [Moles/Vol]4.1 mmol/LNormal3.5-5.1The [facility] Physician GroupComment on above:Performed By: #### PHOS, MG, CBC, CMP ####[id number] USAProtein [Mass/Vol]6.1 g/dLLow6.4-8.9 The [facility] Physician GroupComment on above:Performed By: #### PHOS, MG, CBC, CMP ####[facility] [address] Sodium [Moles/Vol]138 mmol/IQtpswz732-550Drd [facility] Physician [facility] HospitalComment on above:Performed By: #### PHOS, MG, CBC, CMP ####[facility] [address] [place] [address] USAUrea nitrogen [Mass/Vol]24 mg/dLNormal [facility] Physician [facility] Rehabilitation HospitalComment on above:Performed By: #### PHOS, MG, CBC, CMP ####[facility] [place] [address] USAGlucose Poct Glucometerson 16-48-4670Hwqnbwl [Mass/Vol]151 mg/dLNoThe [facility] Physician [facility] HospitalComment on above:Result Comment: Random Glucose Reference Range is dependent on time and content of last meal. Glucose of more than 200 mg/dL in a nonstressed, ambulatory subject supports the diagnosis of Diabetes Mellitus.PERFORMED BY:[address] [place], [place] [phone] MEDICAL BRISA LOBATO M.D. Performed By: #### GLULS ####Point of Care testing,Glucose [Mass/Vol]106 mg/dL NormalAscension Sacred [facility] Coast Physician GroupComment on above:Result Comment: Random Glucose Reference Range is dependent on time and content of last meal. Glucose of more than 200 mg/dL in a nonstressed, ambulatory subject supports the diagnosis of Diabetes Mellitus.PERFORMED BY:[address] [place], [place] [phone] MEDICAL DIRECTORCLIFFORD LOBATO M.D.Performed By: #### GLULS ####Point of Care testing, Glucose [Mass/Vol]132 mg/dLAdventHealth Palm Coast Parkway Physician GroupComment on above: Result Comment: Random Glucose Reference Range is dependent on time and content of last meal. Glucose of more than 200 mg/dL in a nonstressed, ambulatory subject supports the diagnosis of Diabetes Mellitus.PERFORMED BY:[address] [place], [place] [phone] MEDICAL DIRECTORCLIFFORD LOBATO M.D.Performed By: #### GLULS ####Point of Care testing,Rekroum6Uew3: Cleaned MeterNormalThe [facility] Physician GroupComment on above:Result Comment: PERFORMED BY:[address] [place], [place] [phone] MEDICAL DIRECTORCLIFFORD LOBATO M.D. Performed By: #### GLULS ####Point of Care testing,Glucose [Mass/Vol]151 mg/dL NormalThe [facility] Physician GroupComment on above:Result Comment: Random Glucose Reference Range is dependent on time and content of last meal. Glucose of more than 200 mg/dL in a nonstressed, ambulatory subject supports the diagnosis of Diabetes Mellitus.Performed By: #### GLULS ####Point of Care testing,Magnesiumon 71-18-9935Cxoigvmib [Mass/Vol]1.4 mg/dLLow1.9-2.7The [facility] Physician GroupComment on above:Result Comment: PERFORMED BY:[address] [place], [place] [phone] MEDICAL DIRECTORCLIFFORD LOBATO M.D.Performed By: #### PHOS, MG, CBC, CMP ####[address] [address] USANo Panel InformationOrdered By: João Powell on 89-42-8127Cxhwrwe Glucose Comment Glu2: cleaned [facility] HospitalGlu2: cleaned [facility] HospitalPhosphoruson 87-24-5456Hespqeebp [Mass/Vol]3.1 mg/dL Normal2.5-4.5The [facility] Physician GroupComment on above:Performed By: #### PHOS, MG, CBC, CMP ####[address] [address] USAUS carotid doppler BIon 03-50-3270ZV carotid doppler BINormalThe [facility] Physician GroupABO/Rh Retypeon 67-45-5817OYP/RH Recheck ResultPositive NormalThe [facility] Physician [facility] HospitalComment on above:Result Comment: PERFORMED BY:[address] [place], [place] [phone] MEDICAL DIRECTORCLIFFORD LOBATO M.D.Comprehensive Metabolic Panelon 01-37-7085Vptwqbc [Mass/Vol]3.3 g/dLLow3.5-5.7The [facility] Physician [facility] Comment on above:Performed By: #### MG, PHOS, SCAN CBC, CMP ####[address] [address] USAAlbumin/Globulin [Mass ratio]1.1 {ratio}NormalThe [facility] Physician [facility] HospitalComment on above: Performed By: #### MG, PHOS, SCAN CBC, CMP ####[address] [address] USAALP [Catalytic activity/Vol]105 U/L Ehvx37-863Fjd [facility] Physician GroupComment on above:Performed By: #### MG, PHOS, SCAN CBC, CMP ####[address] [address] USAALT [Catalytic activity/Vol]9 U/LNormal7-52The [facility] Physician [facility] HospitalComment on above:Performed By: #### MG, PHOS, SCAN CBC, CMP ####[address] [address] USAAnion gap [Moles/Vol] 11.1 mmol/LNormal6.0-15.0The [facility] Physician GroupComment on above:Performed By: #### MG, PHOS, SCAN CBC, CMP ####[address] [address] USAAST [Catalytic activity/Vol]11 U/QSmw29-10Rne [facility] Medical CenterComment on above:Performed By: #### MG, PHOS, SCAN CBC, CMP ####[address] [address] [place] Bilirubin [Mass/Vol]0.2 mg/dLLow0.3-1.0The [facility] Physician GroupComment on above:Performed By: #### MG, PHOS, SCAN CBC, CMP ####[place] [address] USACalcium [Mass/Vol]8.3 mg/dLLow8.6-10.3 The [facility] Physician GroupComment on above:Performed By: #### MG, PHOS, SCAN CBC, CMP ####[place] [address] USAChloride [Moles/Vol]104 mmol/ILiotfp95-090Llt [facility] Physician [facility] Comment on above:Performed By: #### MG, PHOS, SCAN CBC, CMP ####[place] [address] USACO2 [Moles/Vol]27.6 mmol/YQrqnnp52.0-31.0The [facility] Physician GroupComment on above:Performed By: #### MG, PHOS, SCAN CBC, CMP ####[place] [address] USACreatinine [Mass/Vol]1.83 mg/dLHigh0.70-1.30The [facility] Physician GroupComment on above:Performed By: #### MG, PHOS, SCAN CBC, CMP ####[place] [address] [place] Creatinine Clr Calc Fdgbunmb80.29NoThe [facility] Physician GroupComment on above:Performed By: #### MG, PHOS, SCAN CBC, CMP ####[place] [address] USAGFR/1.73 sq M.predicted MDRD (S/P/Bld) [Vol rate/Area]42.245 mL/min/{1.73_m2}NormalThe [facility] Comment on above:Performed By: #### MG, PHOS, SCAN CBC, CMP ####[place] [address] USAGlobulin (S) [Mass/Vol]2.9 g/dLNoThe [facility] Physician GroupComment on above:Performed By: #### MG, PHOS, SCAN CBC, CMP ####[address] [place] [address] USAGlucose [Mass/Vol]150 mg/oENero21-632Atg [facility] Physician GroupComment on above:Result Comment: Random Glucose Reference Range is dependent on time and content of last meal. Glucose of more than 200 mg/dL in a nonstressed, ambulatory subject supports the diagnosis of Diabetes Mellitus. ADA recommended reference rangePerformed By: #### MG, PHOS, SCAN CBC, CMP ####[address] [place] [address] [place] Potassium [Moles/Vol]3.7 mmol/LNormal3.5-5.1The [facility] Physician GroupComment on above:Performed By: #### MG, PHOS, SCAN CBC, CMP ####[address] [place] [address] USAProtein [Mass/Vol]6.2 g/dLLow 6.4-8.9The [facility] Physician GroupComment on above:Performed By: #### MG, PHOS, SCAN CBC, CMP ####[address] [address] USASodium [Moles/Vol]139 mmol/EUdsoav863-365Ase [facility] Physician GroupComment on above:Performed By: #### MG, PHOS, SCAN CBC, CMP ####[address] [address] USAUrea nitrogen [Mass/Vol]36 mg/dLHigh7-25The [facility] Physician GroupComment on above: Performed By: #### MG, PHOS, SCAN CBC, CMP ####[address] [place] [address] USAECH echo transthoracicon 87-29-7560VMG echo transthoracicNormalThe [facility] Physician GroupFerritinon 03-04-2024 MpzqmgbqUhdjyg94.9-336.2The [facility] Physician GroupComment on above:Order Comment: Comment addResult Comment: Specimen hemolyzed, redraw requested Performed By: #### TSH3, LILA, FE and TIBC, [id number] ####[facility] [address] [place] [address] USAFerritin [Mass/volume] in Serum or PlasmaOrdered By: João Powell on 55-47-7584Chnfmkfo [Mass/Vol]7.7 ng/mLLow23.9-336.2FOhioHealth Grant Medical CenterFerritin [Mass/Vol]Ferritin [Mass/volume] in Serum or YljjkvUbr50.9-336.2FOhioHealth Grant Medical Center Folate [Mass/volume] in Serum or PlasmaOrdered By: João Powell on 03-04-2024 Folate [Mass/Vol]7.8 ng/mL>5.9[facility] HospitalComment on above: Folate reference range: >5.9 ng/mlThe WHO technical consultation on folate and vitamin c41ylzwnsbjhatc has determined that folate concentrations lessthan 4 ng/ml are considered deficient.Folate [Mass/Vol]Folate [Mass/volume] in Serum or Plasma>5.9Galion HospitalComment on above:Folate reference range: >5.9 ng/mlThe WHO technical consultation on folate and vitamin c61rbvauis ncies has determined that folate concentrations lessthan 4 ng/ml are considered deficient.Glucose Poct Glucometerson 80-85-5566Djgaswl9Abo6: Cleaned MeterNormal The [facility] Physician GroupComment on above:Result Comment: PERFORMED BY:[facility] [place], [place] [phone] MEDICAL DIRECTORCLIFFORD LOBATO M.D.Performed By: #### GLULS ####Point of Care testing,Glucose [Mass/Vol]213 mg/dLNoThe [facility] Physician GroupComment on above:Result Comment: Random Glucose Reference Range is dependent on time and content of last meal. Glucose of more than 200 mg/dL in a nonstressed, ambulatory subject supports the diagnosis of Diabetes Mellitus. Performed By: #### GLULS ####Point of Care testing,Glucose [Mass/Vol]279 mg/dL NormalThe [facility] Physician GroupComment on above:Result Comment: Random Glucose Reference Range is dependent on time and content of last meal. Glucose of more than 200 mg/dL in a nonstressed, ambulatory subject supports the diagnosis of Diabetes Mellitus.PERFORMED BY:[address] [place], [place] [phone] MEDICAL DIRECTORCLIFFORD LOBATO M.D.Performed By: #### GLULS ####Point of Care testing, Glucose [Mass/Vol]236 mg/dLNoThe [facility] Physician GroupComment on above: Result Comment: Random Glucose Reference Range is dependent on time and content of last meal. Glucose of more than 200 mg/dL in a nonstressed, ambulatory subject supports the diagnosis of Diabetes Mellitus.PERFORMED BY:[address] [place], [place] [phone] MEDICAL DIRECTORCLIFFORD LOBATO M.D.Performed By: #### GLULS ####Point of Care testing,Glucose [Mass/Vol]242 mg/dLNoThe [facility] Physician GroupComment on above:Result Comment: Random Glucose Reference Range is dependent on time and content of last meal. Glucose of more than 200 mg/dL in a nonstressed, ambulatory subject supports the diagnosis of Diabetes Mellitus.PERFORMED BY:[address] [place], [place] [phone] MEDICAL DIRECTORCLIFFORD LOBATO M.D.Performed By: #### GLULS ####Point of Care testing,Iron [Mass/volume] in Serum or PlasmaOrdered By: João Powell on 59-40-1670Ucga [Mass/Vol]13 ug/vVYux96-191XqlqibwraGalion HospitalComment on above:Order Comment: Comment addPerformed By: #### TSH3, LILA, FE and TIBC, [id number] ####[address] [address] USAIron [Mass/Vol]Iron [Mass/volume] in Serum or Plasma Ymo15-310PgnvqvxtiGalion HospitalIron and TIBC Profileon 03-04-2024% Iron Saturation3.2 %Fjn34-87Wpn [facility] Physician GroupComment on above:Order Comment: Comment addPerformed By: #### TSH3, LILA, FE and TIBC, [id number] ####[address] [place] [address] USATotal Iron Binding Tqgudhvo082 ug/aDKgarkm335-013YaoNoxubee General HospitalComment on above:Order Comment: Comment addPerformed By: #### TSH3, LILA, FE and TIBC, [id number] ####[address] [address] USAIron binding capacity [Mass/volume] in Serum or PlasmaOrdered By: João Powell on 82-86-6130Teft binding capacity [Mass/Vol]403 ug/mI715-870CqbruphgrGalion HospitalIron saturation [Mass Fraction] in Serum or PlasmaOrdered By: João Powell on 39-54-2322Bujz saturation [Mass fraction]3.2 %Cau73-84 Galion HospitalLeukoReduced RBCon 50-29-1676ClszcTmegetv RBC TRANSFUSED 03/04/24 1657NormalThe [facility] Physician [facility] HospitalMR angio MR brain w/o on 03-58-0135DU angio MR brain w/oNormalAscension [facility] Physician [facility] HospitalMagnesiumon 52-12-7186Wxnvgsuwl [Mass/Vol]1.3 mg/dLLow1.9-2.7The [facility] Physician [facility] Comment on above:Result Comment: PERFORMED BY:[address] [place], [place] [phone] MEDICAL DIRECTORCLIFFORD LOBATO M.D.Performed By: #### MG, PHOS, SCAN CBC, CMP ####[address] [address] USAOvalocyte detection Ordered By: João Powell on 53-96-1922Ssurdinqin LM Ql (Bld)SlightGalion HospitalOvalocytes [Presence] in Blood by Light microscopyOrdered By: João Powell on 89-07-6489Lxmbfclktg LM Ql (Bld)Ovalocyte detection Galion HospitalPhosphoruson 30-33-2900Mxhjyyknk [Mass/Vol]3.5 mg/dLNormal2.5-4.5The [facility] Physician GroupComment on above:Performed By: #### MG, PHOS, SCAN CBC, CMP ####[address] [address] USARedraw Ferritinon 05-22-0479Eixztk Ferritin7.7 ng/mL Low23.9-336.2The [facility] Physician GroupComment on above:Performed By: #### TSH3, REDRAW B12, REDRAW LILA, REDRAW FOLATE ####[address] [address] USARedraw Folateon 32-18-5723Nwgodm Folate7.8 ng/mLNormal>5.9The [facility] Physician GroupComment on above:Result Comment: Folate reference range: >5.9 ng/ml The WHO technical consultation on folate and vitamin b12 deficiencies has determined that folate concentrations less than 4 ng/ml are considered deficient.Performed By: #### TSH3, REDRAW B12, REDRAW LILA, REDRAW FOLATE ####[address] [address] USAScan and CBCon 28-86-6874Lhuoquqhnpwc Ql (Bld) ModerateNormalThe [facility] Physician GroupComment on above:Performed By: #### MG, PHOS, SCAN CBC, CMP ####[address] [address] USABasophils (Bld) [#/Vol]0.1 10*3/uLNormal0.0-0.2The [facility] Physician GroupComment on above:Performed By: #### MG, PHOS, SCAN CBC, CMP ####[address] [address] [place] Basophils/100 WBC (Bld)2.4 %Normal.The [facility] Physician GroupComment on above:Performed By: #### MG, PHOS, SCAN CBC, CMP ####[address] [address] USAEosinophils (Bld) [#/Vol]0.2 10*3/uL Normal0.0-0.45The [facility] Physician GroupComment on above:Performed By: #### MG, PHOS, SCAN CBC, CMP ####[place] [address] USAEosinophils/100 WBC (Bld)3.6 %Normal.The [facility] Physician GroupComment on above:Performed By: #### MG, PHOS, SCAN CBC, CMP ####[address] Erythrocyte distribution width (RBC) [Ratio]20.8 %High12.0-14.8The [facility] Physician GroupComment on above:Performed By: #### MG, PHOS, SCAN CBC, CMP ####[address] Hematocrit (Bld) [Volume fraction]23.7 %Low38.8-50.0The [facility] Physician GroupComment on above:Performed By: #### MG, PHOS, SCAN CBC, CMP ####[place] [address] USAHemoglobin (Bld) [Mass/Vol]7.4 g/dLLow13.0-17.0The [facility] Physician GroupComment on above: Performed By: #### MG, PHOS, SCAN CBC, CMP ####[place] [address] USAHypochromasiaSlightNormalThe [facility] Physician GroupComment on above:Performed By: #### MG, PHOS, SCAN CBC, CMP ####[address] Lymphocytes (Bld) [#/Vol]1.3 10*3/uLNormal1.00-4.8The [facility]ician Group Comment on above:Performed By: #### MG, PHOS, SCAN CBC, CMP ####[place] [address] USALymphocytes/100 WBC (Bld)22.8 %Normal.The [facility] Physician GroupComment on above:Performed By: #### MG, PHOS, SCAN CBC, CMP ####[id number] [facility] (RBC) [Entitic mass]21.8 pgLow27.5-35.2The [facility] Physician GroupComment on above:Performed By: #### MG, PHOS, SCAN CBC, CMP ####[address] (RBC) [Entitic vol]69.5 fLLow83.5-101The [facility] Physician GroupComment on above:Performed By: #### MG, PHOS, SCAN CBC, CMP ####[place] [address] USAMean Corpuscular HGB Conc31.3 g/dLLow 32.5-35.6The [facility] Physician GroupComment on above:Performed By: #### MG, PHOS, SCAN CBC, CMP ####[place] [address] USAMonocytes (Bld) [#/Vol]0.9 10*3/uLHigh0.0-0.8The [facility] Physician GroupComment on above:Performed By: #### MG, PHOS, SCAN CBC, CMP ####[place] [address] USAMonocytes/100 WBC (Bld)16.7 %Normal.The [facility] Physician GroupComment on above:Performed By: #### MG, PHOS, SCAN CBC, CMP ####[place] [address] USANeutrophils (Bld) [#/Vol]3.0 10*3/uLNormal1.8-7.7The [facility] Physician GroupComment on above:Performed By: #### MG, PHOS, SCAN CBC, CMP ####[place] [address] USANeutrophils/100 WBC (Bld)54.5 %Normal.The [facility] Physician GroupComment on above:Performed By: #### MG, PHOS, SCAN CBC, CMP ####[place] [address] USANRBC%0.3 /100{WBC}Normal0-0.5The [facility] Physician GroupComment on above:Performed By: #### MG, PHOS, SCAN CBC, CMP ####[address] OvalocytesSlightAdventHealth Palm Coast Parkway Physician GroupComment on above:Performed By: #### MG, PHOS, SCAN CBC, CMP ####[place] [address] USAPlatelet EstimateNormalNormalNormHCA Florida Bayonet Point Hospital Physician GroupComment on above:Performed By: #### MG, PHOS, SCAN CBC, CMP ####[address] Platelet mean volume (Bld) [Entitic vol]8.2 fLNormal6.6-10.1The [facility] Physician GroupComment on above:Performed By: #### MG, PHOS, SCAN CBC, CMP ####[address] Platelet MorphologyNormalNormalAdventHealth Palm Coast Parkway Physician GroupComment on above:Result Comment: PERFORMED BY:[address] [place], [place] [phone] MEDICAL DIRECTORCLIFFORD LOBATO M.D. Performed By: #### MG, PHOS, SCAN CBC, CMP ####[place] [address] USAPlatelets (Bld) [#/Vol]394 10*3/uL Psduvt097-934Zhp [facility] Physician GroupComment on above:Performed By: #### MG, PHOS, SCAN CBC, CMP ####[address]PolychromasiaSAtrium Health Physician GroupComment on above:Performed By: #### MG, PHOS, SCAN CBC, CMP ####[place] [address] USARBC (Bld) [#/Vol]3.41 10*6/uLLow3.90-5.60The [facility] Physician GroupComment on above:Performed By: #### MG, PHOS, SCAN CBC, CMP ####[facility] [place] [address] USAWBC (Bld) [#/Vol]5.5 10*3/uLNormal4.1-10.5The [facility] Physician GroupComment on above:Performed By: #### MG, PHOS, SCAN CBC, CMP ####[address] [place] [address] [facility] Serum or plasma iron binding capacity measurement (mass/volume)Ordered By: João Powell on 14-02-5301Piby binding capacity [Mass/Vol]Iron binding capacity [Mass/volume] in Serum or Hxofoe353-735WbsusqyxxSouthern Ohio Medical Centererum or plasma iron saturation measurement (mass fraction)Ordered By: João Powell on 91-54-9037Kieg saturation [Mass fraction]Iron saturation [Mass Fraction] in Serum or AyvjnzKke72-40TmaxmihjsGalion HospitalThyroid Stimulating Hormoneon 88-96-5513Knffavg Stimulating HormoneNormal0.45-5.33The [facility] Physician GroupComment on above:Order Comment: Comment addResult Comment: Specimen hemolyzed, redraw requestedPERFORMED BY:[address] [place], [place] [phone] MEDICAL DIRECTORCLIFFORD LOBATO M.D.Performed By: #### TSH3, LILA, FE and TIBC, [id number] ####[address] [place] [address] [facility] Thyrotropin [Units/volume] in Serum or PlasmaOrdered By: João Powell on 40-07-3636VPN Qn2.90 m[IU]/LNormal0.45-5.33[facility] Comment on above:Result Comment: PERFORMED BY:[address] [place], [place] [phone] MEDICAL DIRECTORCLIFFORD LOBATO M.D.Performed By: #### TSH3, REDRAW B12, REDRAW LILA, REDRAW FOLATE ####[address] [place] [address] [facility] TSH QnThyrotropin [Units/volume] in Serum or Plasma0.45-5.33Galion HospitalTransferrin [Mass/volume] in Serum or PlasmaOrdered By: João Powell on 28-95-2290Bfcdccbflhg [Mass/Vol]288 mg/pKSrlumx292-804Ltqjxpzrk28 Miller StreetComment on above:Order Comment: Comment addPerformed By: #### TSH3, LILA, FE and TIBC, [id number] ####[address] [address] USATransferrin [Mass/Vol]Transferrin [Mass/volume] in Serum or Oxzard865-348Xwoqhpxhm[address] [place], [place] [address]Type and Screenon 20-16-8275HWM and Rh group Nom (Bld)Blood group O Rh(D) positiveNormalThe [facility] Physician GroupComment on above:Order Comment: Number of units to transfuse now? 1Result Comment: PERFORMED BY:[address] [address] [address] [place], [place] [phone] MEDICAL DIRECTORCLIFFORD LOBATO M.D.Vit. B12/Folate Profileon 91-26-8296QnxvojXycmjp>5.9The [facility] Physician GroupComment on above:Order Comment: Comment addResult Comment: Specimen hemolyzed, redraw requested Folate reference range: >5.9 ng/ml The WHO technical consultation on folate and vitamin b12 deficiencies has determined that folate concentrations less than 4 ng/ml are considered deficient.PERFORMED BY:[address] [place], [place] [phone] MEDICAL DIRECTORCLIFFORD LOBATO M.D.Performed By: #### TSH3, LILA, FE and TIBC, [id number] ####[address] [place] [address] USAVitamin P60Whoveq088-949Nun [facility] Physician GroupComment on above:Order Comment: Comment addResult Comment: Specimen hemolyzed, redraw requestedPerformed By: #### TSH3, LILA, FE and TIBC, [id number] ####[place] [address] StreetVitamin B12 ser/plasOrdered By: João Powell on 92-84-6083Fyhuevruy (Vitamin B12) [Mass/Vol]170 pg/bNDzz472-892Pusloksiy[address] [place], [place] [address]Comment on above:Performed By: #### TSH3, REDRAW B12, REDRAW LILA, REDRAW FOLATE ####[address] [place] [address]270 [facility] Cobalamin (Vitamin B12) [Mass/Vol]Vitamin B12 ser/avshPbl400-482Eshpswoym[address] [place], [place] [address]XR knee RT 2Von 58-05-6873OH knee RT 2VNoThe [facility] Hospital Physician GroupAnisocytosis [Presence] in Blood by Light microscopy Ordered By: Kait Dan on 97-54-6562Clgfvvaqbxvv Ql (Bld)MarkedNormal Gal[facility] HospitalComment on above:Performed By: #### HS TROP, SCAN CBC, BNP, BMP ####[place] [address] USAAppearance of UrineOrdered By: Kait Dan on 03-03-2024 Appearance (U)Urine appearanceCleCommunity Regional Medical CenterAutomated basophil %Ordered By: Kait Dan on 76-58-1923Sqdharfqg/100 WBC (Bld)1.7 % Normal.Galion HospitalComment on above:Performed By: #### HS TROP, SCAN CBC, BNP, BMP ####[place] [address] USAAutomated basophil countOrdered By: Kait Dan on 64-37-6954Okpmvuvej (Bld) [#/Vol]0.1 10*3/uLNormal0.0-0.2FOhioHealth Grant Medical CenterComment on above:Performed By: #### HS TROP, SCAN CBC, BNP, BMP ####[place] [address] [facility] Automated blood monocyte countOrdered By: Kait Dan on 08-50-4154Dtfixylfr (Bld) [#/Vol]0.8 10*3/uLNormal0.0-0.8Gal[facility] HospitalComment on above:Performed By: #### HS TROP, SCAN CBC, BNP, BMP ####[address] [place] [address] USAAutomated eosinophil %Ordered By: Kait Dan on 69-48-1485Qvouqgeswms/100 WBC (Bld)3.2 %Normal.Galion HospitalComment on above:Performed By: #### HS TROP, SCAN CBC, BNP, BMP ####[address] [place] [address] USAAutomated eosinophil countOrdered By: Kait Dan on 86-31-9481Fwjmkqhcqdp (Bld) [#/Vol]0.2 10*3/uLNormal0.0-0.45Galion HospitalComment on above:Performed By: #### HS TROP, SCAN CBC, BNP, BMP ####[place] [address] USAAutomated monocyte %Ordered By: Kait Dan on 02-70-5283Xhwrkarxa/100 WBC (Bld)11.3 %Normal.Galion HospitalComment on above:Performed By: #### HS TROP, SCAN CBC, BNP, BMP ####[place] [address] USAAutomated neutrophil %Ordered By: Kait Dan on 47-41-6864Siwhcxtxkcq/100 WBC (Bld)65.6 %Normal.Galion HospitalComment on above: Performed By: #### HS TROP, SCAN CBC, BNP, BMP ####[place] [address] USABNP ser/plasOrdered By: Kait Dan on 83-81-7742Pxynqprfpmv peptide B (Bld) [Mass/Vol]23.0 pg/mLNormal5-100 Galion HospitalComment on above:Result Comment: PERFORMED BY:[address] [place], [place] [phone] MEDICAL DIRECTORCLIFFORD LOBATO M.D.Performed By: #### HS TROP, SCAN CBC, BNP, BMP ####[address] [place] [address] USABasic Metabolic Panelon 47-22-1889Ucyfmibbwi Clr Calc Jzyyqbtt09.86 NormalAscension Sacred Heart Hospital Emerald Coast Physician GroupComment on above:Result Comment: PERFORMED BY:[address] [place], [place] [phone] MEDICAL DIRECTORCLIFFORD LOBATO M.D.Performed By: #### HS TROP, SCAN CBC, BNP, BMP ####[address] [address] USAGFR/1.73 sq M.predicted MDRD (S/P/Bld) [Vol rate/Area]38.669 mL/min/{1.73_m2}[facility] Physician GroupComment on above:Performed By: #### HS TROP, SCAN CBC, BNP, BMP ####[address] [address] USABilirubin Test strip Ql (U)Ordered By: Kait Dan on 42-83-1629Vleslhdnb Ql (U)NegativeNegThe Christ HospitalBilirubin Ql (U)Bilirubin.total [Presence] in Urine by Test stripNegative Galion HospitalCOVID CepheidOrdered By: Kait aDn on 87-40-3523GTMX-CoV-2 (COVID-19) Ab IA QlNegativeNegThe Christ HospitalComment on above:This is a duplicate Cepheid Xpert Xpress CoV- 2/Flu/RSV Plus RNA by RT-PCR result to be used for statistical tracking purpose only.SARS-CoV-2 (COVID-19) RNA NELLY+probe Ql (Unsp spec)Mary Rutan HospitalComment on above:Performed By: #### CEPHEID NEG, UA, COVID19 FLU RSV ####[place] [address] [place] [address] SARS-CoV-2 (COVID-19) RNA NELLY+probe Ql (Unsp spec)NegativeNormalNegative Galion HospitalComment on above:Result Comment: This is a duplicate Cepheid Xpert Xpress CoV-2/Flu/RSV Plus RNA by RT-PCR result deborah used for statistical tracking purpose only.PERFORMED BY:[address] [place], [place] [phone] MEDICAL DIRECTORCLIFFORD LOBATO M.D.Performed By: #### CEPHEID NEG, UA, COVID19 FLU RSV ####[facility] [address] [place] [address] USACOVID Cepheid NegativeOrdered By: Kait Dan on 95-12-8013KTWO-CoV-2 (COVID-19) Ab IA QlCOVID CepheidNegativeGalion HospitalComment on above: This is a duplicate Cepheid Xpert Xpress CoV-2/Flu/RSV Plus RNA by RT-PCR result to be used for statistical tracking purpose only.CT abdomen pelvis w conon 18-76-8386XI abdomen pelvis w [facility] Physician GroupCT head/brain wo conon 60-46-1262RV head/brain wo [facility] Physician GroupCalcium [Mass/volume] in Serum or PlasmaOrdered By: Kait Dan on 67-29-9960Heyyaxa [Mass/Vol]8.6 mg/dLNormal8.6-10.3FOhioHealth Grant Medical CenterComment on above:Performed By: #### HS TROP, SCAN CBC, BNP, BMP ####[facility] [address] [place] [address] [facility] Capillary blood glucose measurement by glucometer (mass/volume)Ordered By: Kait Dan on 77-91-3194Yfmlhfd [Mass/Vol]167 mg/dLNoOhio State Harding HospitalComment on above:Random Glucose Reference Range is dependent on time and content of last meal. Glucose of more than 200 mg/dL in a nonstressed, ambulatory subject supports the diagnosis of Diabetes Mellitus.Result Comment: Random Glucose Reference Range is dependent on time and content of last meal. Glucose of more than 200 mg/dL in a nonstressed, ambulatory subject supports the diagnosis of Diabetes Mellitus.PERFORMED BY:[address] [place], [place] [phone] MEDICAL DIRECTORCLIFFORD LOBATO M.D.Performed By: #### GLULS ####Point of Care testing, Carbon dioxide, total [Moles/volume] in Serum or PlasmaOrdered By: Kait Dan on 96-12-2885RE3 [Moles/Vol]24.3 mmol/YFbsire82.0-31.0Galion HospitalComment on above:Performed By: #### HS TROP, SCAN CBC, BNP, BMP ####[address] [address] [place] Chloride [Moles/volume] in Serum or PlasmaOrdered By: Kait Dan on 13-89-3230Jezsyain [Moles/Vol]103 mmol/USsygjr17-907VfukehxduGalion HospitalComment on above:Performed By: #### HS TROP, SCAN CBC, BNP, BMP ####[address] [address] USAColor Auto (U)Ordered By: Kait Dan on 93-67-8551Avxxt (U)Color of Urine by Auto YellowGalion HospitalColor of Urine by AutoOrdered By: aKit Dan on 87-13-6212Qcgjb (U)ColorlessNormalYellowGalion HospitalComment on above:Order Comment: Name Collection Type:: Clean-Voided MidstreamPerformed By: #### CEPHEID NEG, UA, COVID19 FLU RSV ####[address] [place] [address] USACreatinine [Mass/volume] in Serum or PlasmaOrdered By: Kait Dan on 03-03-2024 Creatinine [Mass/Vol]1.97 mg/dLHigh0.70-1.30[facility] Comment on above:Performed By: #### HS TROP, SCAN CBC, BNP, BMP ####[address] [address] USAECG 12 lead ECGon 84-71-9915WWR 12 lead ECGNoThe [facility]er [facility] Hospital Physician [facility] Rehabilitation HospitalErythrocyte distribution width [Ratio] by Automated countOrdered By: Kait Dan on 18-89-3226Xevkhmhfcsh distribution width (RBC) [Ratio]20.9 %High12.0-14.8 Gal[facility] HospitalComment on above:Performed By: #### HS TROP, SCAN CBC, BNP, BMP ####[facility] [address] [place] [address] USAErythrocytes [#/volume] in Blood by Automated countOrdered By: Kait Dan on 64-42-3786OAN (Bld) [#/Vol]3.58 10*6/uLLow3.90-5.60Galion HospitalComment on above:Performed By: #### HS TROP, SCAN CBC, BNP, BMP ####[facility] [place] [address] USAGlucose Poct Glucometerson 04-96-1055Utscusv3Vxs0: Cleaned MeterNoUniversity Hospitals TriPoint Medical CenterComment on above:Result Comment: PERFORMED BY:[address] [place], [place] [phone] MEDICAL DIRECTORCLIFFORD LOBATO M.D.Performed By: #### GLULS ####Point of Care testing,Glucose [Mass/Vol]204 mg/dLM Health Fairview University of Minnesota Medical CenterComment on above:Result Comment: Random Glucose Reference Range is dependent on time and content of last meal. Glucose of more than 200 mg/dL in a nonstressed, ambulatory subject supports the diagnosis of Diabetes Mellitus.Performed By: #### GLULS ####Point of Care testing,Glucose [Mass/volume] in Serum or Plasma Ordered By: Kait Dan on 90-45-8497Ssiiirj [Mass/Vol]142 mg/aFTrhy46-005 Galion HospitalComment on above:ADA recommended reference rangeRandom Glucose [...] #### HS TROP, SCAN CBC, BNP, BMP ####[facility] [address] [place] [address] USAGlucose [Mass/volume] in Urine by Test stripOrdered By: Kait Dan on 02-39-1583Fqbikjk Test strip (U) [Mass/Vol]500 mg/dLHighNoSelect Medical TriHealth Rehabilitation HospitalGlucose Test strip (U) [Mass/Vol]Glucose [Mass/volume] in Urine by Test stripHighNoOhio State Harding Hospital Hematocrit [Volume Fraction] of Blood by Automated countOrdered By: Kait Dan on 83-03-1307Fgwdghjleq (Bld) [Volume fraction]24.7 %Low38.8-50.0 Galion HospitalComment on above:Performed By: #### HS TROP, SCAN CBC, BNP, BMP ####[facility] [place] [address] USAHemoglobin Test strip Ql (U)Ordered By: Kait Dan on 03-03-2024 Hemoglobin Ql (U)NegativeNegThe Christ HospitalHemoglobin Ql (U)Hemoglobin [Presence] in Urine by Test stripNegThe Christ HospitalHemoglobin [Mass/volume] in BloodOrdered By: Kait Dan on 13-75-4104Fgmrfddpyf (Bld) [Mass/Vol]7.8 g/dLLow13.0-17.0Galion HospitalComment on above:Performed By: #### HS TROP, SCAN CBC, BNP, BMP ####[facility] [place] [address] [place] Hypochromia LM Ql (Bld)Ordered By: Kait Dan on 00-44-5929Drncoghzrqp Ql (Bld)ModerateGalion HospitalKetones Test strip Ql (U)Ordered By: Kait Dan on 30-69-0833Jkkevtg Ql (U)Ketones [Presence] in Urine by Test stripNegativeGalion HospitalKetones [Presence] in Urine by Test stripOrdered By: Kait Dan on 45-72-8880Vyvkdbo Ql (U)Negative NormalNegThe Christ HospitalComment on above:Order Comment: Name Collection Type:: Clean-Voided MidstreamPerformed By: #### CEPHEID NEG, UA, COVID19 FLU RSV ####[address] [place] [address] USALeukocyte esterase [Presence] in Urine by Test stripOrdered By: Kait Dan on 00-52-1536Jplfqyked esterase Test strip Ql (U)NegativeNormalNegative Gal[facility] HospitalComment on above:Order Comment: Name Collection Type:: Clean-Voided MidstreamPerformed By: #### CEPHEID NEG, UA, COVID19 FLU RSV ####[address] [address] [place] Leukocyte esterase Test strip Ql (U)Leukocyte esterase [Presence] in Urine by Test stripNegThe Christ HospitalLeukocytes [#/volume] corrected for nucleated erythrocytes in Blood by Automated counOrdered By: Kait Dan on 85-49-9076HDP corrected for nucl RBC Auto (Bld) [#/Vol]7.2 10*3/uL4.1-10.5FOhioHealth Grant Medical CenterLeukocytes [#/volume] in Blood by Automated countOrdered By: Kait Dan on 32-24-0302GBI (Bld) [#/Vol]7.2 10*3/uLNormal4.1-10.5FOhioHealth Grant Medical CenterComment on above:Performed By: #### HS TROP, SCAN CBC, BNP, BMP ####[address] [address] USALymphocytes [#/volume] in Blood by Automated countOrdered By: Kait Dan on 93-49-2238Nnwnasqohwz (Bld) [#/Vol]1.3 10*3/uLNormal1.00-4.8Galion HospitalComment on above:Performed By: #### HS TROP, SCAN CBC, BNP, BMP ####[address] [place] [address] USALymphocytes/100 leukocytes in Blood by Automated countOrdered By: Kait Dan on 22-72-7691Jfmlbixrsob/100 WBC (Bld) 18.2 %Normal.Galion HospitalComment on above:Performed By: #### HS TROP, SCAN CBC, BNP, BMP ####[facility] [address] [place] [address] [facility] [Entitic mass] by Automated countOrdered By: Kait Dan on 31-16-9613ROP (RBC) [Entitic mass]21.8 pgLow27.5-35.2FOhioHealth Grant Medical CenterComment on above:Performed By: #### HS TROP, SCAN CBC, BNP, BMP ####[facility] [address] Auto (RBC) [Mass/Vol]Ordered By: Kait Dan on 88-05-1126YKZA (RBC) [Mass/Vol]31.6 g/dLLow32.5-35.6FOhioHealth Grant Medical CenterMCV [Entitic volume] by Automated countOrdered By: Kait Dan on 88-18-9919VIP (RBC) [Entitic vol]69.0 fLLow83.5-101Galion HospitalComment on above:Performed By: #### HS TROP, SCAN CBC, BNP, BMP ####[facility] [address] [place] [address] USAMicrocytes LM Ql (Bld)Ordered By: Kait Dan on 14-98-7728Mcyvyrgekg Ql (Bld)MarkedGalion HospitalMonocyte distribution width [Entitic volume] in Blood by Automated Ordered By: Kait Dan on 49-21-0274Swrngdnn distribution width Auto (Bld) [Entitic vol]17.33 %0.00-20.00Galion HospitalMonocyte distribution width Auto (Bld) [Entitic vol]Monocyte distribution width [Entitic volume] in Blood by Automated0.00-20.00[facility] Natriuretic peptide B [Mass/Vol]Ordered By: Kait Dan on 03-03-2024 Natriuretic peptide B (Bld) [Mass/Vol]BNP ser/plas5-100Galion HospitalNeutrophils [#/volume] in Blood by Automated countOrdered By: Kait Dan on 65-07-4892Dzwqbefqoan (Bld) [#/Vol]4.7 10*3/uLNormal1.8-7.7 Gal[facility] HospitalComment on above:Performed By: #### HS TROP, SCAN CBC, BNP, BMP ####[facility] [address] [place] [address] USANitrite Test strip Ql (U)Ordered By: Kait Dan on 03-03-2024 Nitrite Ql (U)NegativeNegativeGalion HospitalNitrite Ql (U) Nitrite [Presence] in Urine by Test stripNegThe Christ HospitalNo Panel InformationOrdered By: Kait Dan on 25-69-9121Weekbaxov GFR (CKD-EPI)38.669 mL/MinGalion HospitalPharmacy Creatinine Clearance (Chem44.86Galion HospitalNucleated erythrocytes [Presence] in Blood by Automated countOrdered By: Kait Dan on 03-03-2024 Nucleated RBC Auto Ql (Bld)0.2 /100{WBC}0-0.5FOhioHealth Grant Medical Center Platelet adequacy [Presence] in Blood by Light microscopyOrdered By: Kait Dan on 46-60-3845Jnjqzfjhf LM Ql (Bld)IncreasedNoOhio State Harding HospitalPlatelet mean volume [Entitic volume] in Blood by Automated count Ordered By: Kait Dan on 48-90-3254Qmqorsqp mean volume (Bld) [Entitic vol] 7.8 fLNormal6.6-10.1FOhioHealth Grant Medical CenterComment on above:Performed By: #### HS TROP, SCAN CBC, BNP, BMP ####[facility] [address] [place] [address] USAPlatelet morphology finding [Identifier] in BloodOrdered By: Kait Dan on 90-46-2442Hkwrrxwp morphology finding Nom (Bld)NormalMary Rutan HospitalPlatelets [#/volume] in Blood by Automated countOrdered By: Kait Dan on 94-36-0965Vxixrikdt (Bld) [#/Vol]452 10*3/zKGztl803-488NkccczssuGalion HospitalComment on above: Performed By: #### HS TROP, SCAN CBC, BNP, BMP ####[facility] [address] [place] [address] USAPolychromasia [Presence] in Blood by Light microscopyOrdered By: Kait Dan on 98-22-2166Bkzcoejlrwygi LM Ql (Bld)SlightGalion HospitalPotassium [Moles/volume] in Serum or PlasmaOrdered By: Kait Dan on 84-27-3071Qctvpnidc [Moles/Vol]3.9 mmol/L Normal3.5-5.1FOhioHealth Grant Medical CenterComment on above:Performed By: #### HS TROP, SCAN CBC, BNP, BMP ####[facility] [address] [place] [address] USAProtein Test strip (U) [Mass/Vol]Ordered By: Kait Dan on 39-20-5952Okqczdz (U) [Mass/Vol]NegativeNegativeGalion HospitalProtein (U) [Mass/Vol]Protein [Mass/volume] in Urine by Test strip NegativeGalion HospitalRBC morphologyOrdered By: Kait Dan on 87-33-6412HUH morphology finding Nom (Bld)N/[facility] HospitalRespiratory specimen influenza A virus, influenza B virus, respiratory syncytical virOrdered By: Kait Dan on 93-59-8906JYSV-CoV-2 (COVID-19) RNA NELLY+probe Ql (Unsp spec)Respiratory specimen influenza A virus, influenza B virus, respiratory syncytical virGalion Hospital Scan and CBCon 43-63-5810MdvttmnjnugriCozdofriKamyjaJek [facility] Physician GroupComment on above:Performed By: #### HS TROP, SCAN CBC, BNP, BMP ####[facility] [address] [place] [address] USAMean Corpuscular HGB Conc31.6 g/dLLow32.5-35.6The [facility] Physician GroupComment on above:Performed By: #### HS TROP, SCAN CBC, BNP, BMP ####[address] [address] USAMicrocytosisMarkedNoThe [facility] Physician [facility] Rehabilitation HospitalComment on above:Performed By: #### HS TROP, SCAN CBC, BNP, BMP ####[address] [address] [place] [address] USAMonocytes/100 WBC (Bld)17.33 %Normal0.00-20.00The [facility]ician Group Comment on above:Performed By: #### HS TROP, SCAN CBC, BNP, BMP ####[address] [address] USANRBC%0.2 /100{WBC} Normal0-0.5The [facility] Physician [facility] HospitalComment on above:Performed By: #### HS TROP, SCAN CBC, BNP, BMP ####[address] [address] USAPlatelet EstimateIncreasedNormCampbellton-Graceville Hospital Physician [facility] HospitalComment on above:Performed By: #### HS TROP, SCAN CBC, BNP, BMP ####[address] [address] [place] Platelet MorphologyNormalJohns Hopkins All Children's Hospital Physician [facility] Rehabilitation HospitalComment on above:Result Comment: PERFORMED BY:[address] [place], [place] [phone] MEDICAL DIRECTORCLIFFORD LOBATO M.D. Performed By: #### HS TROP, SCAN CBC, BNP, BMP ####[address] [address] USAPolychromasiaSlightAdventHealth Palm Coast Parkway Physician [facility] Rehabilitation HospitalComment on above:Performed By: #### HS TROP, SCAN CBC, BNP, BMP ####[address] [address] USASerum or plasma anion gap determinationOrdered By: Kait Dan on 21-68-8794Avplq gap [Moles/Vol]14.6 mmol/LNormal6.0-15.0Galion HospitalComment on above:Performed By: #### HS TROP, SCAN CBC, BNP, BMP ####[address] [address] USASodium [Moles/volume] in Serum or PlasmaOrdered By: Kait Dan on 01-67-9446Zxeamp [Moles/Vol]138 mmol/L Mqacfw293-183OvhoiepntGalion HospitalComment on above:Performed By: #### HS TROP, SCAN CBC, BNP, BMP ####[address] [address] USASpecific gravity Test strip (U) [Rel density]Ordered By: Kait Dan on 73-90-3484Ljkntsvt gravity (U) [Rel density]1.009 1.001-1.030[facility] Medical Centerpecific gravity (U) [Rel density] Specific gravity of Urine by Test strip1.001-1.030Galion HospitalTroponin I High Sensitivityon 67-01-7843Oskmmhzy I High Sensitivity4.5 pg/mLNormal0.0-20.0The [facility] Physician GroupComment on above:Result Comment: PERFORMED BY:[address] [address] [place]ULDarrianMaryH[place], [place] [phone] MEDICAL DIRECTORCLIFFORD LOBATO M.D.Performed By: #### HS TROP ####[address] [address] USATroponin I High Sensitivity9.2 pg/mLNormal0.0-20.0The [facility] Physician GroupComment on above:Result Comment: PERFORMED BY:[address] [place]Mary[place], [place] [phone] MEDICAL DIRECTORCLIFFORD LOBATO M.D.Performed By: #### HS TROP, SCAN CBC, BNP, BMP ####[address] [address] [place] Troponin I.cardiac [Mass/volume] in Serum or Plasma by Detection limit <= 0.01 ng/Ordered By: Kait Dan on 59-28-1106Uvhsaxbb I.cardiac DL <= 0.01 ng/mL [Mass/Vol]4.5 pg/mL0.0-20.0Galion HospitalTroponin I.cardiac DL <= 0.01 ng/mL [Mass/Vol]Troponin I.cardiac [Mass/volume] in Serum or Plasma by Detection limit <= 0.01 ng/0.0-20.0Galion HospitalUrea nitrogen [Mass/volume] in Serum or PlasmaOrdered By: Kait Dan on 52-49-9490Gbbd nitrogen [Mass/Vol]46 mg/dLBrookline Hospital-Galion HospitalComment on above:Performed By: #### HS TROP, SCAN CBC, BNP, BMP ####[address] [address] [place] Urinalysison 75-55-1325Ukujqhinc,UrineNegativeNormalNegativeThe [facility] Hospital Physician GroupComment on above:Order Comment: Name Collection Type:: Clean- Voided MidstreamPerformed By: #### CEPHEID NEG, UA, COVID19 FLU RSV ####[place] [address] USAGlucose Ql (U)500 mg/dLHackensack University Medical Center Physician GroupComment on above:Order Comment: Name Collection Type:: Clean-Voided MidstreamPerformed By: #### CEPHEID NEG, UA, COVID19 FLU RSV ####[place] [address] USANitrite,UrineNegativeNormalNegativeThe [facility] Physician GroupComment on above:Order Comment: Name Collection Type:: Clean- Voided MidstreamPerformed By: #### CEPHEID NEG, UA, COVID19 FLU RSV ####[address] [address] USAOccult Blood,UrineNegativeNormalNegativeThe [facility] Hospital Physician GroupComment on above: Order Comment: Name Collection Type:: Clean-Voided MidstreamResult Comment: PERFORMED BY:[address]DarrianMaryH[place]TON, [place] [phone] MEDICAL BRISA LOBATO M.D.Performed By: #### CEPHEID NEG, UA, COVID19 FLU RSV ####[address] [place] [address] USAProtein,UrineNegativeNormalNegativeThe [facility] Physician GroupComment on above:Order Comment: Name Collection Type:: Clean- Voided MidstreamPerformed By: #### CEPHEID NEG, UA, COVID19 FLU RSV ####[address] [address] [place] Specificy Perry,Urine1.400Vbvgxm6.001-1.030The [facility] Physician Group Comment on above:Order Comment: Name Collection Type:: Clean-Voided Midstream Performed By: #### CEPHEID NEG, UA, COVID19 FLU RSV ####[place] [address] USAUrobilinogen,UrineNormalNormal NormalThe [facility] Hospital Physician GroupComment on above:Order Comment: Name Collection Type:: Clean-Voided MidstreamPerformed By: #### CEPHEID NEG, UA, COVID19 FLU RSV ####[address] [address] USAUrine appearanceOrdered By: Kait Dan on 19-85-6219Qefhyxcmjv (U) ClearHocking Valley Community HospitalComment on above:Order Comment: Name Collection Type:: Clean-Voided MidstreamPerformed By: #### CEPHEID NEG, UA, COVID19 FLU RSV ####[place] [id number] USAUrobilinogen Test strip (U) [Mass/Vol]Ordered By: Kait Dan on 84-09-8890Isslzzyrymuj (U) [Mass/Vol]Normal mg/dLNoOhio State Harding HospitalUrobilinogen (U) [Mass/Vol]Urobilinogen [Mass/volume] in Urine by Test stripMary Rutan HospitalXR chest 2V*on 41-09-7842HV chest 2V*NormalThe [facility] Hospital Physician GrouppH Test strip (U)Ordered By: Kait Dan on 09-76-6188iD (U)pH of Urine by Test strip5.0-9.0Galion HospitalpH of Urine by Test stripOrdered By: Kait Dan on 03-03-2024 pH (U)5.0 [pH]Normal5.0-9.0[facility] HospitalComment on above: Order Comment: Name Collection Type:: Clean-Voided MidstreamPerformed By: #### CEPHEID NEG, UA, COVID19 FLU RSV ####[facility] [address] [place] [address] USACoding Queryon 80-50-1932Uwlcyv QueryCoding Query From: Eliz Diaz RN To: [...] Name: MYRA PICKARD SR; Caller Number: H NormalSt. Mary'S Medical CenterGeneral Message Officeon [id number] Message Office General Message Office --- --- --- --- --- --- --- --- --- From: Rosa, DirectInbox To: MYRA PICKARD SR Sent: 02/22/24 02:30:41 AM EDT Subject: Discharge Summary Ready to View A summary regarding your recent visit is available in the Documents section of your health record.[facility] Campusurgical Pathology Reporton [id number] Pathology ReportFirelands Regional Medical Center [address] [place] [address]- Surgical Pathology Report Collected Date/Time: 02/12/2024 14:13 EDT Pathologist: Moncho Blood MD Received Date/Time: 02/13/2024 07:26 EDT Simon HERRERA, Mike Montes MD, Mike Cain Surgical Pathology Report - 02/22/2024 14:10 EDT - Auth (Verified) Final Diagnosis RIGHT LOWER EXTREMITY, PRTZI-QDN-LKIN AMPUTATION: - Gangrenous ulcer and artery atherosclerosis. - Seborrheic keratosis. - No evidence of osteomyelitis. - Resection margin uninvolved by acute inflammation. (Electronic Signature) Yan. Caitie MD 02/22/2024 14:10 Clinical Information Pre-Op Diagnosis: Atherosclerosis of [place] arteries of extremities with gangrene, right leg. [...] pigmented lesion measuring 0.2 x 0.2 cm. Dictaphone Transcriber sections are submitted in a total of ten cassettes: 1-5: Skin and soft tissue ulcerated areas 6-7: Artery 8: Bone near ulceration after decalcification 9-10: Bone from surgical margin after decalcification (DC) Gross of specimen was discussed with Dr. Dunne in Frozen Section Room at 1400. (DC) DC:MCA Microscopic Description Microscopic examination performed unless gross only specified.NormalSt. Mary'S Medical CenterComment on above:Performed By: #### [id number] #### [facility] [address], [place] [address]TLLej 41-78-3969Yvofw gap [Moles/Vol]8 mmol/LNormal6-16St. Mary'S Medical CenterComment on above:Performed By: #### [id number] #### [facility] [address], [place] [address]Npjtkkz [Mass/Vol]8.6 mg/dLLow8.9-11.1FBrown Memorial HospitalComment on above:Performed By: #### [id number] #### [facility] [address], [place] [address]Fepgskvs [Moles/Vol]100 mmol/HUwm058-342JbuwroSt. Mary'S Medical CenterComment on above:Performed By: #### [id number] #### [facility] [address], [place] [address]DG7 [Moles/Vol]30 mmol/BFgtkve35-22WkaxbmSt. Mary'S Medical Center Comment on above:Performed By: #### [id number] #### [facility] [address], [place] [address]Yyfvdtybuh [Mass/Vol]1.8 mg/dLHigh0.5-1.3FBrown Memorial HospitalComment on above:Performed By: #### [id number] #### [facility] [address], [place] [address]Yprfgcs [Mass/Vol]169 mg/uWNcblth79-744GitckmSt. Mary'S Medical CenterComment on above:Performed By: #### [id number] #### [facility] [address], [place] [address]Pjcdlwtzx [Moles/Vol]3.7 mmol/LNormal3.5-5.3FBrown Memorial HospitalComment on above:Performed By: #### [id number] #### [facility] [address] [place] [address]Gmusgk [Moles/Vol]134 mmol/BNrx644-415RkfklySt. Mary'S Medical CenterComment on above:Performed By: #### [id number] #### [facility] [address] [place] [address]Rhmy nitrogen [Mass/Vol]26 mg/dLHigh5-21St. Mary'S Medical CenterComment on above:Performed By: #### [id number] #### [facility] [address] [place] [address]Zgdx nitrogen/Creatinine [Mass ratio]14 No QqrmrTtebcl66-16 [facility]S Medical CenterComment on above:Performed By: #### [id number] #### [facility] [address] [place] [address]CPC w/ Auto Diffon 93-29-1521Zpcrazron/100 WBC (Bld)0.7 %Normal 0.0-2.0St. Mary'S Medical CenterComment on above:Performed By: #### [id number] #### [facility] [address] [place] [address]Pvgmavzis/Leukocytes Auto (Bld) [Pure # fraction]0.1 E9/LNormal 0.0-0.2FBrown Memorial HospitalComment on above:Performed By: #### [id number] #### [facility] [address] [place] [address]Mkbdrfdkxjw (Bld) [#/Vol]0.4 E9/LNormal0.0-0.5FBrown Memorial HospitalComment on above:Performed By: #### [id number] #### [facility] [address] [place] [address]Whzbfewdeef/100 WBC (Bld)3.6 %Normal0.0-8.0St. [facility]'S Medical CenterComment on above:Performed By: #### [id number] #### [facility] [address], [place] [address]Kbifzsptsfr distribution width (RBC) [Ratio]21.4 %High10.9-14.2 [facility]'S Medical CenterComment on above:Performed By: #### [id number] #### [facility] [address], [place] [address]Ihohyfezit (Bld) [Volume fraction]25.6 %Low37.7-49.0St. [facility]'S Medical CenterComment on above:Performed By: #### [id number] #### [facility] [address], [place] [address]Fswtwrjjip (Bld) [Mass/Vol]8.1 g/dLLow13.5-17.5FBrown Memorial HospitalComment on above:Performed By: #### [id number] #### [facility] [address] [place] [address]Adnifuuetfx Auto Ql (Bld)PRESENTInvalid Interpretation Code St. Mary'S Medical CenterComment on above:Performed By: #### [id number] #### [facility] [address] [place] [address]Fmbtpxvxjnh (Bld) [#/Vol]1.5 E9/LNormal1.0-4.0St. [facility]'S Medical CenterComment on above:Performed By: #### [id number] #### [facility] [address] [place] [address]Cimodtaidzs/100 WBC (Bld)12.4 %Low14.0-50.0St. [facility]'S Medical CenterComment on above:Performed By: #### [id number] #### [facility] [address] [place] [address] 29118OFY (RBC) [Entitic mass]22.3 pgLow27.0-34.0St. Mary'S Medical CenterComment on above:Performed By: #### [id number] #### [facility] [address] [place] [address] 51742TBNJ (RBC) [Mass/Vol]31.5 g/oPPswynv08.4-36.0St. [facility]'S Medical CenterComment on above:Performed By: #### [id number] #### [facility] [address] [place] [address] 57922SEL (RBC) [Entitic vol]70.7 fLLow80.0-100.0St. [facility]'S Medical CenterComment on above:Performed By: #### [id number] #### [facility] [address] [place] [address] 86[address]Ceapuvmsnb Ql (Bld)PRESENTInvalid Interpretation CodeSt. Mary'S Medical CenterComment on above:Performed By: #### [id number] #### [facility] [address] [place] [address] 22296Hhpcxplom (Bld) [#/Vol]1.1 E9/LHigh0.2-1.0St. [facility]'S Medical CenterComment on above:Performed By: #### [id number] #### [facility] [address] [place] [address] 22300Hucgziblfrg (Bld) [#/Vol]9.3 E9/LHigh2.0-7.5FBrown Memorial HospitalComment on above:Performed By: #### [id number] #### [facility] [address] [place] [address]Admtilmvobd/100 WBC (Bld)74.6 %Lplihk65.0-75.0St. [facility]S Medical CenterComment on above:Performed By: #### [id number] #### [facility] [address] [place] [address] 48691Lleusmbs mean volume (Bld) [Entitic vol]8.6 fLNormal6.4-10.8 [facility]S Medical CenterComment on above:Performed By: #### [id number] #### [facility] [address] [place] [address] 132[address]Vdfohfkbl (Bld) [#/Vol]481.0 E9/JMtbjof852.0-500.0St. [facility]S Medical CenterComment on above:Performed By: #### [id number] #### [facility] [address], [place] [address]Iajxcqmxs Large LM Ql (Bld)PRESENTInvalid Interpretation Code St. [facility]'S Medical CenterComment on above:Performed By: #### [id number] #### [facility] [address], [place] [address]PZV (Bld) [#/Vol]3.6 E12/LLow4.3-5.9[facility] Comment on above:Performed By: #### [id number] #### [facility] [address], [place] [address]HRY size Nom (Bld)NORMALInvalid Interpretation CodeSt. Mary'S Medical CenterComment on above:Performed By: #### [id number] #### [facility] [address], [place] [address]WZD corrected for nucl RBC Auto (Bld) [#/Vol]12.5 E9/LHigh 4.0-11.0St. [facility]S Medical CenterComment on above:Performed By: #### [id number] #### [facility] [address], [place] [address]DZZMJUOQEPrnchxx By: Jericho Sarmiento on 96-88-5915Mugkabh [Mass/Vol]227 mg/vXVhvl28 - 99 mg/dLTHE [facility]ILDR[facility] POC SubsectionComment on above:Result Comment: Notified RN/MDPOC Device [id number] 1Invalid Interpretation Code [facility] POC SubsectionPOC User [id number] 1Invalid Interpretation CodeFT[facility] POC SubsectionPOC UsernameOJUKWU, ABRAHANWJONOMELIEInvalid Interpretation CodeFT POC SubsectionGlucose [Mass/Vol]177 mg/jEHufz17 - 99 mg/dLFTMC POC SubsectionComment on above:Result Comment: Notified RN/MDPOC Device [id number] 1Invalid Interpretation CodeFT[facility] POC SubsectionPOC User [id number] 1Invalid Interpretation Code[facility] POC SubsectionPOC UsernameOJUKDanyellU, CHUKWUEMELIEInvalid Interpretation CodeFT[facility] POC SubsectionGlucose [Mass/Vol]158 mg/tMUicc58 - 99 mg/dLTHE [facility]ILDR[facility] POC SubsectionPOC Device [id number] 1Invalid Interpretation Code [facility] POC SubsectionPOC User [id number] 1Invalid Interpretation CodeTHE [facility] POC SubsectionPOC UsernamDamion FADIInvalid Interpretation CodeTHE [facility]ILDR[facility] P[facility] Subsection CHEMISTRYOrdered By: SYSTEM SYSTEM on 54-10-7914Rqvtd gap [Moles/Vol]8 mmol/L Normal6 - 16 mEq/LRemisol ChemCalcium [Mass/Vol]8.6 mg/dLLow8.9 - 11.1 mg/dL Remisol ChemChloride [Moles/Vol]100 mmol/KZxd690 - 111 mmol/LRemisol ChemCO2 [Moles/Vol]30 mmol/XYrsavd77 - 31 mmol/LRemisol ChemCreatinine [Mass/Vol]1.8 mg/dLHigh0.5 - 1.3 mg/dLRemisol SvrszUFI07 mL/min/1.73 m2Low>=59mL/min/1.73 m2 Remisol ChemGlucose [Mass/Vol]169 mg/zSKwmffl12 - 199 mg/dLRemisol ChemPotassium [Moles/Vol]3.7 mmol/LNormal3.5 - 5.3 mmol/LRemisol ChemSodium [Moles/Vol]134 mmol/ZBge631 - 145 mmol/LRemisol ChemUrea nitrogen [Mass/Vol]26 mg/dLHigh5 - 21 mg/dLRemisol ChemUrea nitrogen/Creatinine [Mass ratio]14 mg/ugDjtiga49 - 20 Remisol ChemCapillary Glucose POCon 03-01-3347Agbvdoz [Mass/Vol]227 mg/dLHigh 55-99St. [facility]'S Medical CenterComment on above:Result Comment: Notified RN/ Performed By: #### [id number] #### [facility] [address], [place] [address]Vhmwwhw [Mass/Vol]177 mg/cODmbp53-84WsmjzsSt. Mary'S Medical Center Comment on above:Result Comment: Notified RN/JULIOerformed By: #### [id number] #### [facility] [address], [place] [address]Ogrpjqb [Mass/Vol]158 mg/nDSmsm43-98WapdoqSt. Mary'S Medical Center Comment on above:Performed By: #### [id number] #### [facility] [address] [place], [place] [address]Jorhykuyq Note-Nursingon 78-15-2096Acizpnqso Note-Nursing Discharge Note-Nursing MYRA PICKARD SR :1965 [...] TERESA LYNCH DO, FAM When: Where: [address] [place] [address]- [facility] When: Within 2 weeks Comments: Call for followup appointment Where: [address] [place] [address]- Medications What How Much When [...] mg Tab) 0.5 Tablets (more content not included)...[facility] HospitalHEMATOLOGYOrdered By: SYSTEM SYSTEM on 64-21-6544Axjhzbsmy/100 WBC (Bld)0.7 %Normal0.0 - 2.0 %Remisol Heme [...] - 34.0 pg Remisol HemeMCHC (RBC) [Mass/Vol]31.5 g/pTHmymov12.4 - 36.0 gm/dLRemisol HemeMCV (RBC) [Entitic vol]70.7 fLLow80.0 - 100.0 fLRemisol HemeMicrocytes Ql (Bld) PRESENT *NA* (02/21/24 6:02 AM)Invalid Interpretation CodeRemisol HemeMonocytes (Bld) [#/Vol] 1.1 E9/LHigh0.2 - 1.0 E9/LRemisol HemeMonocytes/100 WBC (Bld)8.7 %Normal4.0 - 14.0 %Remisol HemeNeutrophils (Bld) [#/Vol]9.3 E9/LHigh2.0 - 7.5 E9/LRemisol HemeNeutrophils/100 WBC (Bld)74.6 %Wqdwoq90.0 - 75.0 %Remisol HemePlatelet mean volume (Bld) [Entitic vol]8.6 fLNormal6.4 - 10.8 fLRemisol HemePlatelets (Bld) [#/Vol]481.0 E9/LBkrsql897.0 - 500.0 E9/LRemisol HemePlatelets Large LM Ql (Bld) PRESENT *NA* (02/21/24 6:02 AM)Invalid Interpretation CodeRemisol HemeRBC (Bld) [#/Vol]3.6 E12/LLow4.3 - 5.9 E12/LRemisol HemeRBC size Nom (Bld)NORMAL *NA* (02/21/24 6:02 AM)Invalid Interpretation CodeRemisol HemeWBC corrected for nucl RBC Auto (Bld) [#/Vol]12.5 E9/LHigh4.0 - 11.0 E9/LRemisol HemeInpatient Clinical Summaryon 96-27-5966Ossatpsnt Clinical SummaryInpatient Clinical Summary [address] [address] Clinical Summary Person Information: Name: MYRA PICKARD SR Age: 58 Years : 1965 Sex: Male PCP: TERESA LYNCH DO Marital Status: Race: White Ethnicity: Non- or Language: Vietnamese Visit Id: Visit Reason: I70.261 Speciality: Acuity: Enc Type: Inpatient Med Service: Medical Arrival: 02/12/2024 11:13:26 Discharge: Dispo Type: Address: [address] [place] [id number] Provider Notes: Diagnosis: 1:Hx of right BKA; [...] up: With: Address: When: TERESA LYNCH DO [address] [address] With: Address: When: Mike Montes MD [address] [place] [address] Within 2 weeks Comments: Call for followup appointment Patient Education Information: Living With an AmputationCleveland Clinic Mercy HospitalInpatient Patient Summaryon [id number] Patient SummaryInpatient Patient Summary [address] [address] Patient Discharge Instructions PERSON INFORMATION [...] up: With: Address: When: TERESA LYNCH DO, [facility] [address] [place] [address] With: Address: When: [facility], [facility] [address] [place] [address] Within 2 weeks Comments: Call for [...] 0.5 Tablets By M (more content not included)...[facility] HospitalInterdisciplinary Note - Case Manageron 67-45-4580Xizpykigxznipzkpx Note - Can Carrier Interdisciplinary Note - Can Carrier Precert for [place] has been obtained. Patient informed and his was also contacted. Both remain in agreement with the discharge plan. Patient's [facility] by 1700 this evening and will transport patient to [place] once he has finished his dinner. Hospitalist, RN, and CRM aware.[facility] HospitalComment on above:Result Comment: Electronically Signed By: Evens SÁNCHEZ, Fely García.nile\Date and Time Signed: 02/21/24 18:08 EDTInterdisciplinary Note - Social Workeron 02-21-2024 Interdisciplinary Note - Social WorkerInterdisciplinary Note - Process Control Operator Precert for [place] has been obtained. Patient informed and his was also contacted. Both remain in agreement with the discharge plan. Patient's will [facility] to [facility] by 1700 this evening and will transport patient to [place] once he has finished his dinner. Hospitalist, RN, and CRM aware.[facility] HospitalInterdisciplinary Note - Process Control Operator Interdisciplinary Note - Process Control Operator Precert for [place] has been obtained. Patient informed and his was also contacted. Both remain in agreement with the discharge plan. Patient's will arrive [facility] by 1700 this evening and will transport patient to [place] once he has finished his dinner. Hospitalist, RN, and CRM aware.[facility] Mercy HospitaleGFRon 54-94-2110uULU98 mL/min/1.73 m2Low >=59St. [facility]S Medical CenterComment on above:Order Comment: Order added by Discern Expert.Performed By: #### [id number] #### [facility] [address] [place], [place] [address]YNFtt 38-30-0374Whcmi gap [Moles/Vol]15 mmol/LNormal6-16St. [facility]S Medical CenterComment on above:Performed By: #### [id number] #### [facility] [address], [place] [address]Fnefanp [Mass/Vol]9.4 mg/dLNormal8.9-11.1FBrown Memorial HospitalComment on above:Performed By: #### [id number] #### [facility] [address], [place] [address]Jjgpreqx [Moles/Vol]97 mmol/XLcp994-505UqwkmxSt. Mary'S Medical CenterComment on above:Performed By: #### [id number] #### [facility] [address], [place] [address]QQ5 [Moles/Vol]28 mmol/NCyetvm16-03OqkvbxSt. Mary'S Medical Center Comment on above:Performed By: #### [id number] #### [facility] [address], [place] [address]Wgwohwtuow [Mass/Vol]1.8 mg/dLHigh0.5-1.3FBrown Memorial HospitalComment on above:Performed By: #### [id number] #### [facility] [address], [place] [address]Zspoucn [Mass/Vol]259 mg/cGRzpn44-884VdibhmSt. Mary'S Medical CenterComment on above:Performed By: #### [id number] #### [facility] [address], [place] [address]Gnkgjdaqu [Moles/Vol]3.9 mmol/LNormal3.5-5.3FBrown Memorial HospitalComment on above:Performed By: #### [id number] #### [facility] [address], [place] [address]Cnnbnz [Moles/Vol]136 mmol/SGehyov480-738AyhrwoSt. Mary'S Medical CenterComment on above:Performed By: #### [id number] #### [facility] [address], [place] [address]Rkfp nitrogen [Mass/Vol]27 mg/dLHigh5-21St. [facility]S Medical CenterComment on above:Performed By: #### [id number] #### [facility] [address], [place] [address]Iqcy nitrogen/Creatinine [Mass ratio]15 No NknqqGrznwk97-10 [facility] Medical CenterComment on above:Performed By: #### [id number] #### [facility] [address] [place] [address]EBH w/ Auto Diffon 95-83-2267Xhhlzahev/100 WBC (Bld)0.7 %Normal 0.0-2.0St[facility] Medical CenterComment on above:Performed By: #### [id number] #### [facility] [address] [place] [address]Qoanuxepd/Leukocytes Auto (Bld) [Pure # fraction]0.1 E9/LNormal 0.0-0.2FBrown Memorial HospitalComment on above:Performed By: #### [id number] #### [facility] [address] [place] [address]Ofszfmncuic (Bld) [#/Vol]0.2 E9/LNormal0.0-0.5FBrown Memorial HospitalComment on above:Performed By: #### [id number] #### [facility] [address] [place] [address]Eloudufdtld/100 WBC (Bld)1.6 %Normal0.0-8.0St[facility]S Medical CenterComment on above:Performed By: #### [id number] #### [facility] [address] [place] [address]Kkayxxvnici distribution width (RBC) [Ratio]21.6 %High10.9-14.2 [facility] Medical CenterComment on above:Performed By: #### [id number] #### [facility] [address] [place] [address]Ixukfsukgm (Bld) [Volume fraction]27.5 %Low37.7-49.0St. [facility]S Medical CenterComment on above:Performed By: #### [id number] #### [facility] [address] [place] [address]Pmcglgofkb (Bld) [Mass/Vol]8.9 g/dLLow13.5-17.5FBrown Memorial HospitalComment on above:Performed By: #### [id number] #### [facility] [address] [place] [address]Vitsxyydpxo Auto Ql (Bld)PRESENTInvalid Interpretation Code St. [facility]S Medical CenterComment on above:Performed By: #### [id number] #### [facility] [address] [place] [address]Cgeuaqbiewa (Bld) [#/Vol]1.3 E9/LNormal1.0-4.0St[facility] Medical CenterComment on above:Performed By: #### [id number] #### [facility] [address] [place] [address]25[address]Bneyyrprzjo/100 WBC (Bld)8.3 %Low14.0-50.0St[facility]S Medical CenterComment on above:Performed By: #### [id number] #### [facility] [address] [place] [address] 36971JPQ (RBC) [Entitic mass]22.9 pgLow27.0-34.0St[facility] Medical CenterComment on above:Performed By: #### [id number] #### [facility] [address] [place] [address]EKHZ (RBC) [Mass/Vol]32.2 g/nHVargjz78.4-36.0St[facility] Medical CenterComment on above:Performed By: #### [id number] #### [facility] [address] [place] [address]15[address]SDQ (RBC) [Entitic vol]70.9 fLLow80.0-100.0St[facility] Medical CenterComment on above:Performed By: #### [id number] #### [facility] [address] [place] [address]Zochbjolow Ql (Bld)PRESENTInvalid Interpretation CodeSt. Mary'S Medical CenterComment on above:Performed By: #### [id number] #### [facility] [address] [place] [address]Feakirzsi (Bld) [#/Vol]1.2 E9/LHigh0.2-1.0St. [facility]S Medical CenterComment on above:Performed By: #### [id number] #### [facility] [address] [place] [address]Wobkxwrtmhw (Bld) [#/Vol]12.7 E9/LHigh2.0-7.5FBrown Memorial HospitalComment on above:Performed By: #### [id number] #### [facility] [address] [place] [address]Uypavgruvne/100 WBC (Bld)81.5 %High36.0-75.0St[facility]S Medical CenterComment on above:Performed By: #### [id number] #### [facility] [address] [place] [address]Kegukcun250.0 E9/CEuha265.0-500.0[facility] Comment on above:Performed By: #### [id number] #### [facility] [address] [place] [address]Jinoaqaf mean volume (Bld) [Entitic vol]8.6 fLNormal6.4-10.8 [facility] Medical CenterComment on above:Performed By: #### [id number] #### [facility] [address] [place] [address]FBI (Bld) [#/Vol]3.9 E12/LLow4.3-5.9[facility] Comment on above:Performed By: #### [id number] #### [facility] [address] [place] [address]1954GTP size Nom (Bld)SEE MORPHOLOGYInvalid Interpretation Code St. [facility]S Medical CenterComment on above:Performed By: #### [id number] #### [facility] [address] [place] [address]JXL corrected for nucl RBC Auto (Bld) [#/Vol]15.6 E9/LHigh 4.0-11.0[facility] Medical CenterComment on above:Performed By: #### [id number] #### [facility] [address] [place] [address] [place] [address]YJDKRLRQRRrofpwk By: SYSTEM SYSTEM on 09-27-3706Htlhi gap [Moles/Vol]15 mmol/LNormal6 - 16 mEq/LRemisol ChemCalcium [Mass/Vol]9.4 mg/dL Normal8.9 - 11.1 mg/dLRemisol ChemChloride [Moles/Vol]97 mmol/IZzn196 - 111 mmol/LRemisol ChemCO2 [Moles/Vol]28 mmol/JGvbgtp82 - 31 mmol/LRemisol Chem Creatinine [Mass/Vol]1.8 mg/dLHigh0.5 - 1.3 mg/dLRemisol CkaxbKBX11 mL/min/1.73 m2Low>=59mL/min/1.73 m8Bbefcfn ChemGlucose [Mass/Vol]259 mg/gIXmdq32 - 199 mg/dL Remisol ChemPotassium [Moles/Vol]3.9 mmol/LNormal3.5 - 5.3 mmol/LRemisol Chem Sodium [Moles/Vol]136 mmol/AVkqkmp038 - 145 mmol/LRemisol ChemUrea nitrogen [Mass/Vol]27 mg/dLHigh5 - 21 mg/dLRemisol ChemUrea nitrogen/Creatinine [Mass ratio]15 mg/otCavphu08 - 20Remisol ChemCapillary Glucose POCon 16-16-0222Ymrvuwz [Mass/Vol]192 mg/pFTjik25-88GpoaetSt. Mary'S Medical CenterComment on above:Result Comment: Notified RN/MDPerformed By: #### [id number] #### [facility] [address] [place], [place] [address]Ousrbpi [Mass/Vol]180 mg/rPZwlo49-09CaxdwmSt. Mary'S Medical Center Comment on above:Result Comment: Notified RN/MDPerformed By: #### [id number] #### [facility] [address], [place] [address]Mtiwxhn [Mass/Vol]104 mg/dXQczs35-50BunemjSt. Mary'S Medical Center Comment on above:Result Comment: Notified RN/MDPerformed By: #### [id number] #### [facility] [address], [place] [address]Hbejrkt [Mass/Vol]165 mg/dANpvs97-45Fsjgwc[address] Comment on above:Result Comment: Notified RN/MDPerformed By: #### [id number] #### [facility] [address] [place], [place] [address]Lgjtefb [Mass/Vol]224 mg/rGGmpk47-42Urunms[address] Comment on above:Result Comment: Notified RN/MDPerformed By: #### [id number] #### [facility] [address], [place] [address]Flfvvp Queryon 62-55-2527Pmwrga QueryCoding Query From: Eliz Diaz RN To: [...] answer is desired or expected. Thank you!eliz [id number] Beachwood Medical CenterHEMATOLOGYOrdered By: SYSTEM SYSTEM on 08-84-0658Zgdlychme/100 WBC (Bld) 0.7 %Normal0.0 - 2.0 %Remisol [...] pgLow27.0 - 34.0 pgRemisol HemeMCHC (RBC) [Mass/Vol]32.2 g/zGPlqyrx36.4 - 36.0 gm/dLRemisol HemeMCV (RBC) [Entitic vol]70.9 fLLow80.0 - 100.0 fLRemisol HemeMicrocytes Ql (Bld)PRESENT *NA* (02/20/24 5:53 AM)Invalid Interpretation CodeRemisol HemeMonocytes (Bld) [#/Vol] 1.2 E9/LHigh0.2 - 1.0 E9/LRemisol HemeMonocytes/100 WBC (Bld)7.9 %Normal4.0 - 14.0 %Remisol HemeNeutrophils (Bld) [#/Vol]12.7 E9/LHigh2.0 - 7.5 E9/LRemisol HemeNeutrophils/100 WBC (Bld)81.5 %High36.0 - 75.0 %Remisol YjttIvvqmdjd418.0 E9/ESsmq059.0 - 500.0 E9/LRemisol HemePlatelet mean volume (Bld) [Entitic vol] 8.6 fLNormal6.4 - 10.8 fLRemisol HemeRBC (Bld) [#/Vol]3.9 E12/LLow4.3 - 5.9 E12/LRemisol HemeRBC size Nom (Bld)SEE MORPHOLOGY *NA* (02/20/24 5:53 AM)Invalid Interpretation CodeRemisol HemeWBC corrected for nucl RBC Auto (Bld) [#/Vol]15.6 E9/LHigh4.0 - 11.0 E9/LRemisol HemeInterdisciplinary Note - Case Manageron [id number] Note - Can Carrier Interdisciplinary Note - Can Carrier This SW rounded with patient this morning. He is aware that precert is still pending for [facility] and SW will update him as soon as determination is received. SW will also update his . Call placed to patient's this afternoon and a message was left letting her know that the precert remains pending at this time.[facility] HospitalComment on above:Result Comment: Electronically Signed By: Fely Narvaez.br\Date and Time Signed: 02/20/24 15:25 EDTInterdisciplinary Note - Case ManagerInterdisciplinary Note - Can Carrier This SW rounded with patient this morning. He is aware that precert is still pending for [facility] and SW will update him as soon as determination is received. SW will also update his .[facility] HospitalComment on above:Result Comment: Electronically Signed By: Fely Narvaez.br\Date and Time Signed: 02/20/24 13:55 EDTeGFRon 12-41-4531tCMK16 mL/min/1.73 m2Low>=59[facility] CenterComment on above:Order Comment: Order added by Discern Expert.Performed By: #### [id number] #### [facility] [address] [place], [place] [address]GYLgy 16-36-7981Utopw gap [Moles/Vol]12 mmol/LNormal6-16St. [facility] Medical CenterComment on above:Performed By: #### [id number] #### [facility] [address], [place] [address]Luucrpd [Mass/Vol]8.9 mg/dLNormal8.9-11.1FBrown Memorial HospitalComment on above:Performed By: #### [id number] #### [facility] [address], [place] [address]Awfexpkb [Moles/Vol]100 mmol/ZPbx743-085EzntgoSt. Mary'S Medical CenterComment on above:Performed By: #### [id number] #### [facility] [address], [place] [address]SY4 [Moles/Vol]28 mmol/YFpjwme38-69YdyxezSt. Mary'S Medical Center Comment on above:Performed By: #### [id number] #### [facility] [address], [place] [address]Opxbfhbcyj [Mass/Vol]1.7 mg/dLHigh0.5-1.3FBrown Memorial HospitalComment on above:Performed By: #### [id number] #### [facility] [address], [place] [address]Jzeukhj [Mass/Vol]235 mg/xZZnrx36-504YdyuymSt. Mary'S Medical CenterComment on above:Performed By: #### [id number] #### [facility] [address], [place] [address]Jcsolouvv [Moles/Vol]4.1 mmol/LNormal3.5-5.3FBrown Memorial HospitalComment on above:Performed By: #### [id number] #### [facility] [address], [place] [address]Kriegh [Moles/Vol]136 mmol/LTwezok952-372WbwtwwSt. Mary'S Medical CenterComment on above:Performed By: #### [id number] #### [facility] [address], [place] [address]Lmdi nitrogen [Mass/Vol]25 mg/dLHigh5-21St. [facility]S Medical CenterComment on above:Performed By: #### [id number] #### [facility] [address] [place] [address]Hvha nitrogen/Creatinine [Mass ratio]15 No QbcxzUmxbcc96-31 [facility] CenterComment on above:Performed By: #### [id number] #### [facility] [address] [place] [address]PJU w/ Auto Diffon 45-45-5011Fcvhfgdhv/100 WBC (Bld)1.6 %Normal 0.0-2.0St[facility] CenterComment on above:Performed By: #### [id number] #### [facility] [address] [place] [address]Pzrcekfwt/Leukocytes Auto (Bld) [Pure # fraction]0.2 E9/LNormal 0.0-0.2FBrown Memorial HospitalComment on above:Performed By: #### [id number] #### [facility] [address] [place] [address]Qaidhfqtvxe (Bld) [#/Vol]0.5 E9/LNormal0.0-0.5FBrown Memorial HospitalComment on above:Performed By: #### [id number] #### [facility] [address] [place] [address]Aiomchtecpr/100 WBC (Bld)5.1 %Normal0.0-8.0St[facility] Medical CenterComment on above:Performed By: #### [id number] #### [facility] [address] [place] [address]Cvygcpjtwbu distribution width (RBC) [Ratio]21.6 %High10.9-14.2 [facility] CenterComment on above:Performed By: #### [id number] #### [facility] [address] [place] [address]Geapnlzgut (Bld) [Volume fraction]24.4 %Low37.7-49.0St[facility] Medical CenterComment on above:Performed By: #### [id number] #### [facility] [address], [place] [address]Ptlvuntfap (Bld) [Mass/Vol]7.9 g/dLLow13.5-17.5FBrown Memorial HospitalComment on above:Performed By: #### [id number] #### [facility] [address], [place] [address]Jiawxmtqwfh Auto Ql (Bld)PRESENTInvalid Interpretation Code St. [facility] CenterComment on above:Performed By: #### [id number] #### [facility] [address], [place] [address]Hskwmenzzfp (Bld) [#/Vol]1.9 E9/LNormal1.0-4.0St[facility] CenterComment on above:Performed By: #### [id number] #### [facility] [address] [place] [address]Jkhroxxjmyv/100 WBC (Bld)18.4 %Phtfxl87.0-50.0St. [facility] Medical CenterComment on above:Performed By: #### [id number] #### [facility] [address] [place] [address] 10778LBM (RBC) [Entitic mass]22.8 pgLow27.0-34.0St. [facility] Medical CenterComment on above:Performed By: #### [id number] #### [facility] [address] [place] [address]KVZW (RBC) [Mass/Vol]32.3 g/zSLhcvzh09.4-36.0St[facility] CenterComment on above:Performed By: #### [id number] #### [facility] [address] [place] [address]2821AID (RBC) [Entitic vol]70.4 fLLow80.0-100.0St[facility] Medical CenterComment on above:Performed By: #### [id number] #### [facility] [address] [place] [address] 14[address]Yexfckmki (Bld) [#/Vol]1.0 E9/LNormal0.2-1.0[facility] CenterComment on above:Performed By: #### [id number] #### [facility] [address] [place] [address]Cdtkpsgrbid (Bld) [#/Vol]6.7 E9/LNormal2.0-7.5FBrown Memorial HospitalComment on above:Performed By: #### [id number] #### [facility] [address] [place] [address]Jgununqwioh/100 WBC (Bld)65.1 %Jiobtz64.0-75.0St[facility] Medical CenterComment on above:Performed By: #### [id number] #### [facility] [address] [place] [address]Wbtvaxgx692.0 E9/SBykyqg588.0-500.0[facility] Comment on above:Performed By: #### [id number] #### [facility] [address] [place] [address]Cqkqsett mean volume (Bld) [Entitic vol]8.1 fLNormal6.4-10.8 [facility] CenterComment on above:Performed By: #### [id number] #### [facility] [address] [place] [address]BHZ (Bld) [#/Vol]3.5 E12/LLow4.3-5.9[facility] Comment on above:Performed By: #### [id number] #### [facility] [address] [place] [address]VJM size Nom (Bld)SEE MORPHOLOGYInvalid Interpretation Code St. [facility] Medical CenterComment on above:Performed By: #### [id number] #### [facility] [address] [place] [address]IXL corrected for nucl RBC Auto (Bld) [#/Vol]10.3 E9/LNormal 4.0-11.0[facility] CenterComment on above:Performed By: #### [id number] #### [facility] [address], [place] [address]QMGYNEBNENnfjfeo By: SYSTEM SYSTEM on 95-36-4263Fgzms gap [Moles/Vol]12 mmol/LNormal6 - 16 mEq/LRemisol ChemCalcium [Mass/Vol]8.9 mg/dL Normal8.9 - 11.1 mg/dLRemisol ChemChloride [Moles/Vol]100 mmol/CMxy842 - 111 mmol/LRemisol ChemCO2 [Moles/Vol]28 mmol/NPealbn00 - 31 mmol/LRemisol Chem Creatinine [Mass/Vol]1.7 mg/dLHigh0.5 - 1.3 mg/dLRemisol NsnxlDMB05 mL/min/1.73 m2Low>=59mL/min/1.73 v7Prbkasz ChemGlucose [Mass/Vol]235 mg/wEMrdj71 - 199 mg/dL Remisol ChemPotassium [Moles/Vol]4.1 mmol/LNormal3.5 - 5.3 mmol/LRemisol Chem Sodium [Moles/Vol]136 mmol/WNgxmjo895 - 145 mmol/LRemisol ChemUrea nitrogen [Mass/Vol]25 mg/dLHigh5 - 21 mg/dLRemisol ChemUrea nitrogen/Creatinine [Mass ratio]15 mg/pqMjtbos13 - 20Remisol ChemCapillary Glucose POCon 04-49-4458Lquumqb [Mass/Vol]250 mg/nVWhla66-77AqhshbSt. Mary'S Medical CenterComment on above:Result Comment: Notified RN/MDPerformed By: #### [id number] #### [facility] [address], [place] [address]Mcefeaw [Mass/Vol]272 mg/eEXxpm29-34ZqudtgSt. Mary'S Medical Center Comment on above:Result Comment: Notified RN/MDPerformed By: #### [id number] #### [facility] [address], [place] [address]Stkjgsr [Mass/Vol]277 mg/iHLgvo32-08DxqzxcSt. Mary'S Medical Center Comment on above:Result Comment: Notified RN/MDPerformed By: #### [id number] #### [facility] [address], [place] [address]Wozngju [Mass/Vol]217 mg/rAHmfx01-30Zudkfy [facility] Comment on above:Result Comment: Notified RN/Saydaformed By: #### [id number] #### [facility] [address], [place] [address]OAPGBXLMNWQbnhupz By: SYSTEM SYSTEM on 90-30-9218Oiuljsllw/100 WBC (Bld)1.6 %Normal0.0 - 2.0 %Remisol HemeBasophils/Leukocytes [...] - 4.0 E9/LRemisol HemeLymphocytes/100 WBC (Bld)18.4 % Osedmb44.0 - 50.0 %Remisol HemeMCH (RBC) [Entitic mass]22.8 pgLow27.0 - 34.0 pg Remisol HemeMCHC (RBC) [Mass/Vol]32.3 g/tXKjbkht25.4 - 36.0 gm/dLRemisol HemeMCV (RBC) [Entitic vol]70.4 fLLow80.0 - 100.0 fLRemisol HemeMonocytes (Bld) [#/Vol] 1.0 E9/LNormal0.2 - 1.0 E9/LRemisol HemeMonocytes/100 WBC (Bld)9.8 %Normal4.0 - 14.0 %Remisol HemeNeutrophils (Bld) [#/Vol]6.7 E9/LNormal2.0 - 7.5 E9/LRemisol HemeNeutrophils/100 WBC (Bld)65.1 %Tculod67.0 - 75.0 %Remisol AhjwJxmtastr735.0 E9/JVpxxpi140.0 - 500.0 E9/LRemisol HemePlatelet mean volume (Bld) [Entitic vol] 8.1 fLNormal6.4 - 10.8 fLRemisol HemeRBC (Bld) [#/Vol]3.5 E12/LLow4.3 - 5.9 E12/LRemisol HemeRBC size Nom (Bld)SEE MORPHOLOGY *NA* (02/19/24 6:11 AM)Invalid Interpretation CodeRemisol HemeWBC corrected for nucl RBC Auto (Bld) [#/Vol]10.3 E9/LNormal4.0 - 11.0 E9/LRemisol Heme Interdisciplinary Note - Case Manageron 30-20-9505Akipcuwewekdhdolp Note - Case ManagerInterdisciplinary Note - Can Carrier This SW met with patient today to discuss discharge plans. Plan remains for patient to go to [facility] in [place] once precert is obtained. All updates have been sent to [facility] for theprecert, which was submitted on Monday. Patient requested that SW contact his once precert is obtained, or before the end of the day if not obtained today. This SW made a tc to patient's and let her know that precert is still pending. She voiced understanding.[facility] HospitalComment on above:Result Comment: Electronically Signed By: Fely Narvaez.nile\Date and Time Signed: 02/19/24 15:59 EDTInterdisciplinary Note - Case ManagerInterdisciplinary Note - Can Carrier This SW met with patient today to discuss discharge plans. Plan remains for patient to go to [facility] in [place] once precert is obtained. All updates have been sent to [facility] for theprecert, which was submitted on Monday. Patient requested that SW contact his once precert is obtained, or before the end of the day if not obtained today.[facility] HospitalComment on above:Result Comment: Electronically Signed By: Fely Narvaezbr\Date and Time Signed: 02/19/24 10:44 EDTOperative Reporton 10-13-8609Adwousawy ReportOperative Report SURGERY DATE: 02/12/2024 PREOPERATIVE DIAGNOSIS: [...] counts were correct. Sully Valdez Dictated: 02/12/2024 [id number] Transcribed: 02/13/2024NoPremier HealthComment on above:Result Comment: Electronically Signed By: Simon [...] The patient tolerated the procedure well without complications..[facility] HospitalComment on above:Result Comment: Electronically Signed By: MD Solomon Ahmad F\.br\Date and Time Signed: 02/19/24 08:36 EDTeGFRon 89-05-4561zWLU77 mL/min/1.73 m2Low>=59[facility] CenterComment on above:Order Comment: Order added by Discern Expert.Performed By: #### [id number] #### [facility] [address], [place] [address]Fhmuslieb Glucose POCon 75-65-6131Ipqlalz [Mass/Vol]348 mg/dL Iyfv74-88KhrohkSt. Mary'S Medical CenterComment on above:Result Comment: Notified RN/MDPerformed By: #### [id number] #### [facility] [address], [place] [address]Qvobqim [Mass/Vol]323 mg/lDFhtx46-24FvfkteSt. Mary'S Medical Center Comment on above:Result Comment: Notified RN/MDPerformed By: #### [id number] #### [facility] [address], [place] [address]Oirfuzi [Mass/Vol]323 mg/kLPadz26-76HnsjhfSt. Mary'S Medical Center Comment on above:Result Comment: Notified RN/MDPerformed By: #### [id number] #### [facility] [address], [place] [address]Vfojwbd [Mass/Vol]210 mg/kAKnfm41-31VdqdhpSt. Mary'S Medical Center Comment on above:Result Comment: Notified RN/MDPerformed By: #### [id number] #### [facility] [address], [place] [address]UIJsk 40-87-4230Kkhal gap [Moles/Vol]13 mmol/LNormal6-16St[facility] Medical CenterComment on above:Performed By: #### [id number] #### [facility] [address], [place] [address]Rzljtgw [Mass/Vol]9.3 mg/dLNormal8.9-11.1FBrown Memorial HospitalComment on above:Performed By: #### [id number] #### [facility] [address], [place] [address]Vjzgnjsd [Moles/Vol]98 mmol/CQlt817-868TiubbsSt. Mary'S Medical CenterComment on above:Performed By: #### [id number] #### [facility] [address], [place] [address]ZZ2 [Moles/Vol]28 mmol/GMqrtto23-21IsfxrhSt. Mary'S Medical Center Comment on above:Performed By: #### [id number] #### [facility] [address], [place] [address]Vbgxyvgwae [Mass/Vol]1.8 mg/dLHigh0.5-1.3FBrown Memorial HospitalComment on above:Performed By: #### [id number] #### [facility] [address], [place] [address]Ffdthbf [Mass/Vol]374 mg/hCPoft00-358QqsbhgSt. Mary'S Medical CenterComment on above:Performed By: #### [id number] #### [facility] [address], [place] [address]Juqwozxrg [Moles/Vol]4.6 mmol/LNormal3.5-5.3FBrown Memorial HospitalComment on above:Performed By: #### [id number] #### [facility] [address], [place] [address]Axqvjm [Moles/Vol]134 mmol/EEvn020-327TxtlpxSt. Mary'S Medical CenterComment on above:Performed By: #### [id number] #### [facility] [address], [place] [address]Gemx nitrogen [Mass/Vol]25 mg/dLHigh5-21St. [facility]S Medical CenterComment on above:Performed By: #### [id number] #### [facility] [address], [place] [address]Ghhh nitrogen/Creatinine [Mass ratio]14 No CimteXfvkwn84-82 [facility] CenterComment on above:Performed By: #### [id number] #### [facility] [address], [place] [address]SIC w/ Auto Diffon 56-58-0666Ybrymnhuy/100 WBC (Bld)1.0 %Normal 0.0-2.0St. [facility] Medical CenterComment on above:Performed By: #### [id number] #### [facility] [address] [place] [address]Hepagoamq/Leukocytes Auto (Bld) [Pure # fraction]0.1 E9/LNormal 0.0-0.2FBrown Memorial HospitalComment on above:Performed By: #### [id number] #### [facility] [address] [place] [address]Hqkevopcwgc (Bld) [#/Vol]0.5 E9/LNormal0.0-0.5FBrown Memorial HospitalComment on above:Performed By: #### [id number] #### [facility] [address] [place] [address]Zmhormkcpze/100 WBC (Bld)5.0 %Normal0.0-8.0St. [facility] Medical CenterComment on above:Performed By: #### [id number] #### [facility] [address] [place] [address]84[address]Pdhccivcjua distribution width (RBC) [Ratio]21.6 %High10.9-14.2 [facility] CenterComment on above:Performed By: #### [id number] #### [facility] [address] [place] [address]Lnhgajcnuf (Bld) [Volume fraction]24.8 %Low37.7-49.0St[facility] Medical CenterComment on above:Performed By: #### [id number] #### [facility] [address] [place] [address]Eobsxpvnoc (Bld) [Mass/Vol]8.5 g/dLLow13.5-17.5FBrown Memorial HospitalComment on above:Performed By: #### [id number] #### [facility] [address] [place] [address]Txttfphzesc (Bld) [#/Vol]1.6 E9/LNormal1.0-4.0[facility] CenterComment on above:Performed By: #### [id number] #### [facility] [address], [place] [address]Thvvzklsoqw/100 WBC (Bld)15.2 %Pgmjky37.0-50.0St. [facility] Medical CenterComment on above:Performed By: #### [id number] #### [facility] [address] [place] [address]12[address]FQY (RBC) [Entitic mass]24.3 pgLow27.0-34.0St. [facility] Medical CenterComment on above:Performed By: #### [id number] #### [facility] [address] [place] [address]XQBP (RBC) [Mass/Vol]34.2 g/qPLwoyuk29.4-36.0St[facility] CenterComment on above:Performed By: #### [id number] #### [facility] [address] [place] [address]IYC (RBC) [Entitic vol]70.9 fLLow80.0-100.0St[facility] Medical CenterComment on above:Performed By: #### [id number] #### [facility] [address] [place] [address]45[address]Ucfowcymqa Ql (Bld)PRESENTInvalid Interpretation CodeSt. Mary'S Medical CenterComment on above:Performed By: #### [id number] #### [facility] [address] [place] [address]Ocxwmrcbr (Bld) [#/Vol]1.1 E9/LHigh0.2-1.0[facility] Medical CenterComment on above:Performed By: #### [id number] #### [facility] [address], [place] [address]Gmvbxzubaph (Bld) [#/Vol]7.1 E9/LNormal2.0-7.5FBrown Memorial HospitalComment on above:Performed By: #### [id number] #### [facility] [address], [place] [address]Scmkqowwizp/100 WBC (Bld)68.3 %Kzdmqd31.0-75.0[facility] Medical CenterComment on above:Performed By: #### [id number] #### [facility] [address], [place] [address]Wefipogc141.0 E9/IHvigbf528.0-500.0[facility] Comment on above:Performed By: #### [id number] #### [facility] [address] [place] [address]Lhtvmlby mean volume (Bld) [Entitic vol]8.2 fLNormal6.4-10.8 [facility] CenterComment on above:Performed By: #### [id number] #### [facility] [address] [place] [address]37[address]GON (Bld) [#/Vol]3.5 E12/LLow4.3-5.9[facility] Comment on above:Performed By: #### [id number] #### [facility] [address] [place] [address]CJX size Nom (Bld)SEE MORPHOLOGYInvalid Interpretation Code St. [facility]S Medical CenterComment on above:Performed By: #### [id number] #### [facility] [address] [place] [address]WMA corrected for nucl RBC Auto (Bld) [#/Vol]10.4 E9/LNormal 4.0-11.0[facility] Medical CenterComment on above:Performed By: #### [id number] #### [facility] [address] [place] [address]Dnmumrgyi Glucose POCon 70-16-1831Lbovjzg [Mass/Vol]366 mg/dL Uvyl25-03JypevdSt. Mary'S Medical CenterComment on above:Result Comment: Notified RN/MDPerformed By: #### [id number] #### [facility] [address], [place] [address]Qrglxad [Mass/Vol]314 mg/aXIaod71-96AqttyoSt. Mary'S Medical Center Comment on above:Result Comment: Notified RN/MDPerformed By: #### [id number] #### [facility] [address], [place] [address]Obzpcsp [Mass/Vol]389 mg/fIEgaf66-39DxdmaxSt. Mary'S Medical Center Comment on above:Result Comment: Notified RN/MDPerformed By: #### [id number] #### [facility] [address], [place] [address]Jyioiqf [Mass/Vol]298 mg/hRDtma82-47IngymkSt. Mary'S Medical Center Comment on above:Result Comment: Notified RN/MDPerformed By: #### [id number] #### [facility] [address], [place] [address]LQPDHXKNWKPazbztc By: SYSTEM SYSTEM on 47-21-7281Zkkfprgorv Ql (Bld)PRESENT *NA* (02/17/24 10:59 AM)Invalid Interpretation CodeRemisol HemeeGFRon 24-25-7556jSXL58 mL/min/1.73 m2Low>=59St[facility]S Medical CenterComment on above:Order Comment: Order added by Discern Expert.Performed By: #### [id number] #### [facility] [address], [place] [address]QWLkb 47-95-0176Qgomw gap [Moles/Vol]12 mmol/LNormal6-16St. [facility]S Medical CenterComment on above:Performed By: #### [id number] #### [facility] [address], [place] [address]Guelryl [Mass/Vol]8.5 mg/dLLow8.9-11.1FBrown Memorial HospitalComment on above:Performed By: #### [id number] #### [facility] [address], [place] [address]Bmyrcvvy [Moles/Vol]100 mmol/BPas032-199PvgzbxSt. Mary'S Medical CenterComment on above:Performed By: #### [id number] #### [facility] [address], [place] [address]KC3 [Moles/Vol]27 mmol/WRjaixo98-29WhhpynSt. Mary'S Medical Center Comment on above:Performed By: #### [id number] #### [facility] [address], [place] [address]Vlpaevorrf [Mass/Vol]1.8 mg/dLHigh0.5-1.3FBrown Memorial HospitalComment on above:Performed By: #### [id number] #### [facility] [address], [place] [address]Ozvqvbd [Mass/Vol]242 mg/cQXyrd65-042OhvjysSt. Mary'S Medical CenterComment on above:Performed By: #### [id number] #### [facility] [address], [place] [address]Bebopsfie [Moles/Vol]3.8 mmol/LNormal3.5-5.3FBrown Memorial HospitalComment on above:Performed By: #### [id number] #### [facility] [address], [place] [address]Mlvrtn [Moles/Vol]135 mmol/QMfbmiq278-325WvnociSt. Mary'S Medical CenterComment on above:Performed By: #### [id number] #### [facility] [address], [place] [address]Ccqe nitrogen [Mass/Vol]25 mg/dLHigh5-21St. [facility]S Medical CenterComment on above:Performed By: #### [id number] #### [facility] [address], [place] [address]Jbrc nitrogen/Creatinine [Mass ratio]14 No PvompIocojx11-20 [facility] Medical CenterComment on above:Performed By: #### [id number] #### [facility] [address], [place] [address]RHC w/ Auto Diffon 56-23-1954Hyrharyzs/100 WBC (Bld)0.7 %Normal 0.0-2.0St[facility] Medical CenterComment on above:Performed By: #### [id number] #### [facility] [address], [place] [address]Kzwghnjpp/Leukocytes Auto (Bld) [Pure # fraction]0.1 E9/LNormal 0.0-0.2FBrown Memorial HospitalComment on above:Performed By: #### [id number] #### [facility] [address] [place] [address]Fxzcgcevmrk (Bld) [#/Vol]0.5 E9/LNormal0.0-0.5FBrown Memorial HospitalComment on above:Performed By: #### [id number] #### [facility] [address] [place] [address]Wexaufkgtrp/100 WBC (Bld)4.2 %Normal0.0-8.0St[facility] Medical CenterComment on above:Performed By: #### [id number] #### [facility] [address] [place] [address]Bakrkgymsfq distribution width (RBC) [Ratio]21.5 %High10.9-14.2 [facility] CenterComment on above:Performed By: #### [id number] #### [facility] [address] [place] [address]Sxavdudgig (Bld) [Volume fraction]22.9 %Low37.7-49.0[facility] CenterComment on above:Performed By: #### [id number] #### [facility] [address] [place] [address] [id number] (Bld) [Mass/Vol]7.6 g/dLLow13.5-17.5FBrown [facility] HospitalComment on above:Performed By: #### [id number] #### [facility] [address] [place] [address] [id number] Auto Ql (Bld)PRESENTInvalid Interpretation Code [facility] CenterComment on above:Performed By: #### [id number] #### [facility] Laboratory [address] [place] [address] 23033Sqqyxbwmaxf (Bld) [#/Vol]1.4 E9/LNormal1.0-4.0St. [facility]S Medical CenterComment on above:Performed By: #### [id number] #### [facility] Laboratory [address] [place], [place] [address]Takwwyhhpcg/100 WBC (Bld)12.7 %Low14.0-50.0St[facility]S Medical CenterComment on above:Performed By: #### [id number] #### [facility] Laboratory [address] [place] [address] 72411ZBE (RBC) [Entitic mass]23.4 pgLow27.0-34.0St. [facility]S Medical CenterComment on above:Performed By: #### [id number] #### [facility] Laboratory [address] [place] [address] 91955ZWVH (RBC) [Mass/Vol]33.0 g/xJCgeerz93.4-36.0St[facility] Medical CenterComment on above:Performed By: #### [id number] #### [facility] Laboratory [address] [place] [address] 94813NCP (RBC) [Entitic vol]70.9 fLLow80.0-100.0St[facility] Medical CenterComment on above:Performed By: #### [id number] #### [facility] Laboratory [address] [place] [address] 90355Hoirwfhelv Ql (Bld)PRESENTInvalid Interpretation CodeSt. Mary'S Medical CenterComment on above:Performed By: #### [id number] #### [facility] Laboratory [address] [place] [address] 41038Cgyvknntm (Bld) [#/Vol]1.3 E9/LHigh0.2-1.0St[facility] Medical CenterComment on above:Performed By: #### [id number] #### [facility] Laboratory [address] [place] [address] 20418Ajyhjbplrws (Bld) [#/Vol]7.7 E9/LHigh2.0-7.5FBrown Memorial HospitalComment on above:Performed By: #### [id number] #### [facility] Laboratory [address] [place] [address] 98723Liiszrbtbgs/100 WBC (Bld)70.1 %Opqwuo62.0-75.0[facility] Medical CenterComment on above:Performed By: #### [id number] #### [facility] Laboratory [address], [place] [address]Lxcbefzc861.0 E9/OAjwfzz175.0-500.0[facility] Comment on above:Performed By: #### [id number] #### [facility] Laboratory [address], [place] [address]Zpxublws mean volume (Bld) [Entitic vol]8.4 fLNormal6.4-10.8 [facility] Medical CenterComment on above:Performed By: #### [id number] #### [facility] Laboratory [address] [place] [address] 50497HJW (Bld) [#/Vol]3.2 E12/LLow4.3-5.9[facility] Comment on above:Performed By: #### [id number] #### [facility] Laboratory [address] [place] [address] 61403OFX size Nom (Bld)SEE MORPHOLOGYInvalid Interpretation Code St. [facility]S Medical CenterComment on above:Performed By: #### [id number] #### [facility] Laboratory [address] [place] [address] 69766UAU corrected for nucl RBC Auto (Bld) [#/Vol]11.0 E9/LNormal 4.0-11.0[facility] Medical CenterComment on above:Performed By: #### [id number] #### [facility] Laboratory [address] [place] [address] 54729Cixqnftoo Glucose POCon 12-35-2812Wxuimps [Mass/Vol]266 mg/dL [address]Comment on above:Result Comment: Notified RN/MDPerformed By: #### [id number] #### [facility] Laboratory [address] [place] [address] 00729Pyrubeg [Mass/Vol]319 mg/yWKymg95-52Wsqxfn[address] Comment on above:Result Comment: Notified RN/MDPerformed By: #### [id number] #### [facility] Laboratory [address] [place], [place] [address]Atjmrjp [Mass/Vol]403 mg/lOTnvh89-41Ncgwpe[address] Comment on above:Result Comment: Notified RN/MDPerformed By: #### [id number] #### [facility] Laboratory [address] [place], [place] [address]Aeiivzf [Mass/Vol]319 mg/aPEbjj10-19Gkcumk[address] Comment on above:Result Comment: Notified RN/MDPerformed By: #### [id number] #### [facility] Laboratory [address] [place], [place] [address]Mzncwvx [Mass/Vol]253 mg/cZXuct10-83Efrwyf[address] Comment on above:Result Comment: Notified RN/MDPerformed By: #### [id number] #### [facility] Laboratory [address] [place] [place], [place] [address]Utihhd Queryon 11-19-2149Orxuyg QueryCoding Query From: Eliz Diaz RN To: [...] Caller Number: H Dx: acute blood loss anemiaNormalSt. Mary'S Medical CenterInpatient Clinical Summaryon [id number] Clinical SummaryInpatient Clinical Summary [place] [id number] Clinical Summary Person Information: Name: MYRA PICKARD SR Age: 58 Years : 1965 Sex: Male PCP: TERESA LYNCH DO Marital Status: Race: White Ethnicity: Non- or Language: Vietnamese Visit Id: Visit Reason: I70.261 Speciality: Acuity: Enc Type: Inpatient Med Service: Medical Arrival: 02/12/2024 11:13:26 Discharge: Dispo Type: Address: [address] [place] [id number] Provider Notes: Diagnosis: 1:Hx of right BKA; [...] Mike Montes MD Follow up: Patient Education Information:[facility] HospitalIn[facility] Patient Summaryon [id number] Patient SummaryInpatient Patient Summary [place] [id number] Patient Discharge Instructions PERSON INFORMATION Name: MYRA [...] every day. Last Dose: (more content not included)...[facility] HospitalInsurance Correspondence Officeon [id number] Correspondence OfficeInsurance Correspondence Office OPERATIVE NOTE Operative [...] c omplications. All counts were correct. Mike oMntes M.D. noe Dictated: 02/12/2024 [id number] Transcribed: 02/13/2024[facility] HospitalInterdisciplinary Note - Case Manageron 07-94-2148Tlsctzxtcxgogembo Note - Case ManagerInterdisciplinary Note - Can Carrier This SW received notification from [facility] that patient's had called and wanted to cancel the Acute Rehab and proceed with [facility]. TC from Acute Rehab was received asking [...] SW also explained that if going to [facility], precert would have to be obtained. SW spent a lengthy amount of time going over the differences between the 2 faciliites with patient. He informed SW that his choice was to go to [place], not Acute Rehab. SW notified Acute Rehab [...] are 3 steps to enter their home.NormalFisher [facility] Comment on above:Result Comment: Electronically Signed By: Evens SÁNCHEZ, Fely Vazquez\Date and Time Signed: 02/16/24 12:45 EDTeGFRon 97-29-8648rDTS36 mL/min/1.73 m2Low>=59St[facility]S Medical CenterComment on above:Order Comment: Order added by Discern Expert.Performed By: #### [id number] #### [facility] Laboratory [address] [place], [place] [address]GCQby 24-03-2401Fivsr gap [Moles/Vol]9 mmol/LNormal6-16St. [facility]S Medical CenterComment on above:Performed By: #### [id number] #### [facility] Laboratory [address], [place] [address]Exhkivo [Mass/Vol]8.3 mg/dLLow8.9-11.1FBrown Memorial HospitalComment on above:Performed By: #### [id number] #### [facility] Laboratory [address], [place] [address]Qtfwvffi [Moles/Vol]98 mmol/WEik038-473LpvrmaSt. Mary'S Medical CenterComment on above:Performed By: #### [id number] #### [facility] Laboratory [address], [place] [address]WF8 [Moles/Vol]30 mmol/HQwbnmq33-53CsifozSt. Mary'S Medical Center Comment on above:Performed By: #### [id number] #### [facility] Laboratory [address], [place] [address]Pjtrhzabal [Mass/Vol]1.9 mg/dLHigh0.5-1.3FBrown Memorial HospitalComment on above:Performed By: #### [id number] #### [facility] Laboratory [address], [place] [address]Fedjwjg [Mass/Vol]319 mg/nELonc38-115FlbpqpSt. Mary'S Medical CenterComment on above:Performed By: #### [id number] #### [facility] Laboratory [address], [place] [address]Tkfakfqmq [Moles/Vol]3.9 mmol/LNormal3.5-5.3FBrown Memorial HospitalComment on above:Performed By: #### [id number] #### [facility] Laboratory [address], [place] [address]Cnvshd [Moles/Vol]133 mmol/ETua734-636VishlwSt. Mary'S Medical CenterComment on above:Performed By: #### [id number] #### [facility] Laboratory [address], [place] [address]Xavm nitrogen [Mass/Vol]25 mg/dLHigh5-21St. [facility]S Medical CenterComment on above:Performed By: #### [id number] #### [facility] Laboratory [address], [place] [address]Clai nitrogen/Creatinine [Mass ratio]13 No ZowdrPqflda80-33 [facility]S Medical CenterComment on above:Performed By: #### [id number] #### [facility] Laboratory [address], [place] [address]HGP w/Indiceson 10-47-3678Uqfughupkpo distribution width (RBC) [Ratio]20.9 %High10.9-14.2FBrown Memorial HospitalComment on above:Performed By: #### [id number] #### [facility] Laboratory [address] [place], [place] [address]Fgbdumwvfp (Bld) [Volume fraction]22.2 %Low37.7-49.0St[facility]S Medical CenterComment on above:Performed By: #### [id number] #### [facility] Laboratory [address] [place], [place] [address]Rkdwokdqjb (Bld) [Mass/Vol]7.7 g/dLLow13.5-17.5FBrown Memorial HospitalComment on above:Performed By: #### [id number] #### [facility] Laboratory [address] [place], [place] [address]EBB (RBC) [Entitic mass]24.3 pgLow27.0-34.0St[facility]S Medical CenterComment on above:Performed By: #### [id number] #### [facility] Laboratory [address] [place], [place] [address]HOGD (RBC) [Mass/Vol]34.6 g/dOShyoru13.4-36.0St[facility] Medical CenterComment on above:Performed By: #### [id number] #### [facility] Laboratory [address] [place] [address] 17694CVU (RBC) [Entitic vol]70.2 fLLow80.0-100.0St[facility] Medical CenterComment on above:Performed By: #### [id number] #### [facility] Laboratory [address] [place] [address]Hkzzgwob407.0 E9/RPeuqpq629.0-500.0[facility] Comment on above:Performed By: #### [id number] #### [facility] Laboratory [address] [place] [address]Gotspxgb mean volume (Bld) [Entitic vol]8.2 fLNormal6.4-10.8 [facility] Medical CenterComment on above:Performed By: #### [id number] #### [facility] Laboratory [address] [place] [address] 039[address]SLR (Bld) [#/Vol]3.2 E12/LLow4.3-5.9[facility] Comment on above:Performed By: #### [id number] #### [facility] Laboratory [address] [place], [place] [address]VSC size Nom (Bld)NORMALInvalid Interpretation CodeSt. Mary'S Medical CenterComment on above:Performed By: #### [id number] #### [facility] Laboratory [address] [place] [address] 08776QYP corrected for nucl RBC Auto (Bld) [#/Vol]9.0 E9/LNormal 4.0-11.0[facility] Medical CenterComment on above:Performed By: #### [id number] #### [facility] Laboratory [address] [place] [address]47[address]ENTWHHOQTDeuzvzf By: SYSTEM SYSTEM on 22-17-7506Poogsyybw [Mass/Vol]1.7 mg/dLNormal1.3 - 2.4 mg/dLRemisol ChemPhosphate [Mass/Vol]3.8 mg/dLNormal1.9 - 4.6 mg/dLRemisol ChemCOAGULATIONOrdered By: Nancy Barrera on 07-76-2351lRTA Coag (PPP) [Time]28.6 tIcwoct82.1 - 36.5 second(s)[facility] Auto Coag Comment on above:Interpretive Data: Parameter [...] the same coagulation reagent and instrumentation as [facility]. Currently there are no coagulation studies available worldwide for children to 14 days, andno normal ranges. Heparin therapeutic range (represented by Anti-Factor Xa activity of 0.2 - 0.4 U/mL) corresponds to PTT of 56.6 - 109.0 sec.INR Coag (PPP) [Relative time]1.09 {INR}Invalid Interpretation CodeTHE [facility]ILDR[facility] Auto CoagComment on above:Interpretive Data: INR results are specifically intended to assess patients stabilized on long-term Anticoagulation therapy suggested INR s Less Intensive Anticoagulation 2.0 3.0 Conventional Range 3.0 4.5PT Coag (PPP) [Time]12.2 sNormal9.4 - 12.5 second(s) [facility] Auto CoagComment on above:Interpretive Data: 15 days [...] the same coagulation reagent and instrumentation as [facility]. Currently there are no coagulation studies available worldwide for children to 14 days, andno normal ranges.Capillary Glucose POCon 05-33-1471Otmafps [Mass/Vol]398 mg/dLHigh 55-99St. [facility]S Medical CenterComment on above:Result Comment: Notified RN/MD Performed By: #### [id number] #### [facility] Laboratory [address] [place], [place] [address]Xuihmrv [Mass/Vol]337 mg/sJXtrt30-25Sofkzx[address] Comment on above:Result Comment: Notified RN/MDPerformed By: #### [id number] #### [facility] Laboratory [address] [place], [place] [address]Fgknzmp [Mass/Vol]228 mg/qUQkcs49-83Earmct[address] Comment on above:Result Comment: Notified RN/MDPerformed By: #### [id number] #### [facility] Laboratory [address] [place], [place] [address]Rwanscm [Mass/Vol]309 mg/qIBydg47-27Qcxkpe[address] Comment on above:Result Comment: Notified RN/MDPerformed By: #### [id number] #### [facility] Laboratory [address] [place], [place] [address]Iftbouqramrqwngwq Note - Case Manageron 02-15-2024 Interdisciplinary Note - Case ManagerInterdisciplinary Note - Can Carrier CRM to room 309 Patient is awake, alert and oriented. Patient is from home with his spouse. Patient verified PCP, DME and insurance. Patient is here as inpatient. Patient had Right BKA. Patient is assigned to Dr Antonio. Vascular Dr Montes did surgery. Patient is getting transfusion PRBC. Patient will need PT/OT added when appropriate. Patient would like rehab stay. Choices were [facility], [facility] and [facility]. [facility] can accept. Patient was provided CRM contact, white board updated. CRM following DC date when [facility] can take per Dr Antonio patient is not ready for DC now drop in HGB, bleeding at stump and still on IV pain meds Rehab needs him on an oral regimenNormalSt. Mary'S Medical CenterComment on above:Result Comment: Electronically Signed By: Raina Aguilar\.nile\Date and Time Signed: 02/15/24 14:08 EDTMagnesiumon 13-94-1957Iwohasucd [Mass/Vol]1.7 mg/dLNormal1.3-2.4FBrown Memorial HospitalComment on above:Performed By: #### [id number] #### [facility] Laboratory [address] [place], [place] [address]TE & PTTon 84-38-1015wINL Coag (PPP) [Time]28.6 second(s)Normal 25.1-36.5FBrown Memorial HospitalComment on above:Result Comment: Parameter 15 days [...] the same coagulation reagent and instrumentation as [facility]. Currently there are no coagulation studies available worldwide for children to 14 days, andno normal ranges. Heparin therapeutic range (represented by Anti-Factor Xa activity of 0.2 - 0.4 U/mL) corresponds to PTT of 56.6 - 109.0 sec.Performed By: #### [id number] #### [facility] Laboratory [address] [place], [place] [address]IGK Coag (PPP) [Relative time]1.09 {INR}Invalid Interpretation [facility] HospitalComment on above:Result Comment: INR results are specifically intended to assess patients stabilized on long-term Anticoagulation therapy suggested INR?s ?Less Intensive Anticoagulation? 2.0 ? 3.0 Conventional Range 3.0 ? 4.5Performed By: #### [id number] #### [facility] [address] [facility] [place], [place] [address]UR Coag (PPP) [Time]12.2 second(s)Normal9.4-12.5FBrown Memorial HospitalComment on above:Result Comment: 15 days - [...] the same coagulation reagent and instrumentation as [facility]. Currently there are no coagulation studies available worldwide for children to 14 days, andno normal ranges.Performed By: #### [id number] #### [facility] Laboratory [address] [place], [place] [address]Otavlbcilmaf 12-53-9045Pxvqgvocc [Mass/Vol]3.8 mg/dLNormal 1.9-4.6[facility] CenterComment on above:Performed By: #### [id number] #### [facility] Laboratory [address], [place] [address]oLPWtx 25-17-7723pXCE09 mL/min/1.73 m2Low>=59St. [facility]S Medical CenterComment on above:Order Comment: Order added by Discern Expert. Performed By: #### [id number] #### [facility] Laboratory [address] [place], [place] [address]JGPly 39-75-4928Xbgtw gap [Moles/Vol]12 mmol/LNormal6-16St. [facility]S Medical CenterComment on above:Performed By: #### [id number] #### [facility] Laboratory [address] [place], [place] [address]Yrolnrl [Mass/Vol]8.3 mg/dLLow8.9-11.1FBrown Memorial HospitalComment on above:Performed By: #### [id number] #### [facility] Laboratory [address], [place] [address]Jarmckct [Moles/Vol]96 mmol/LNnr027-140GlscezSt. Mary'S Medical CenterComment on above:Performed By: #### [id number] #### [facility] Laboratory [address], [place] [address]LF8 [Moles/Vol]28 mmol/SLqutpm91-53MnzhdySt. Mary'S Medical Center Comment on above:Performed By: #### [id number] #### [facility] Laboratory [address], [place] [address]Gltjxorfkr [Mass/Vol]1.8 mg/dLHigh0.5-1.3FBrown Memorial HospitalComment on above:Performed By: #### [id number] #### [facility] Laboratory [address] [place], [place] [address]Xsnszbj [Mass/Vol]298 mg/mUUowj75-301HsaxtiSt. Mary'S Medical CenterComment on above:Performed By: #### [id number] #### [facility] Laboratory [address] [place], [place] [address]Bsodsksvs [Moles/Vol]3.7 mmol/LNormal3.5-5.3FBrown Memorial HospitalComment on above:Performed By: #### [id number] #### [facility] Laboratory [address] [place], [place] [address]Knjmvl [Moles/Vol]132 mmol/ZGip486-511TwjjmlSt. Mary'S Medical CenterComment on above:Performed By: #### [id number] #### [facility] Laboratory [address], [place] [address]Tpat nitrogen [Mass/Vol]21 mg/dLNormal5-21St. [facility]S Medical CenterComment on above:Performed By: #### [id number] #### [facility] Laboratory [address] [place] [address]Vaaa nitrogen/Creatinine [Mass ratio]12 No UaemhHuvsmr99-90 [facility] Medical CenterComment on above:Performed By: #### [id number] #### [facility] Laboratory [address] [place] [address]SUM w/ Auto Diffon 31-71-0761Xhgtpwnys/100 WBC (Bld)1.9 %Normal 0.0-2.0St[facility] Medical CenterComment on above:Performed By: #### [id number] #### [facility] Laboratory [address] [place] [address]Cqopplxzy/Leukocytes Auto (Bld) [Pure # fraction]0.2 E9/LNormal 0.0-0.2FBrown Memorial HospitalComment on above:Performed By: #### [id number] #### [facility] Laboratory [address] [place] [address]Ithtouvxkfz (Bld) [#/Vol]0.3 E9/LNormal0.0-0.5FBrown Memorial HospitalComment on above:Performed By: #### [id number] #### [facility] Laboratory [address] [place] [address]Htwonuvkfdc/100 WBC (Bld)3.1 %Normal0.0-8.0St[facility] Medical CenterComment on above:Performed By: #### [id number] #### [facility] Laboratory [address] [place] [address] 52[address]Lznamticepo distribution width (RBC) [Ratio]21.1 %High10.9-14.2 [facility] Medical CenterComment on above:Performed By: #### [id number] #### [facility] Laboratory [address] [place] [address] 40521Rlcegcxuvm (Bld) [Volume fraction]26.4 %Low37.7-49.0St[facility]S Medical CenterComment on above:Performed By: #### [id number] #### [facility] Laboratory [address] [place], [place] [address]Ozilbixawp (Bld) [Mass/Vol]8.5 g/dLLow13.5-17.5FBrown Memorial HospitalComment on above:Performed By: #### [id number] #### [facility] Laboratory [address] [place], [place] [address]Wwwtijzygtq Auto Ql (Bld)PRESENTInvalid Interpretation Code St. [facility]S Medical CenterComment on above:Performed By: #### [id number] #### [facility] Laboratory [address] [place], [place] [address]Qrqtgdywtsv (Bld) [#/Vol]1.1 E9/LNormal1.0-4.0[facility] Medical CenterComment on above:Performed By: #### [id number] #### [facility] Laboratory [address] [place] [address]Lhhcasoxpvv/100 WBC (Bld)11.3 %Low14.0-50.0St[facility]S Medical CenterComment on above:Performed By: #### [id number] #### [facility] Laboratory [address] [place] [address]ETI (RBC) [Entitic mass]23.3 pgLow27.0-34.0St[facility]S Medical CenterComment on above:Performed By: #### [id number] #### [facility] Laboratory [address] [place], [place] [address]CXAO (RBC) [Mass/Vol]32.4 g/qAFbhnnm20.4-36.0St[facility]S Medical CenterComment on above:Performed By: #### [id number] #### [facility] Laboratory [address] [place], [place] [address]PYZ (RBC) [Entitic vol]71.8 fLLow80.0-100.0St[facility]S Medical CenterComment on above:Performed By: #### [id number] #### [facility] Laboratory [address] [place], [place] [address]Ivgzkalenl Ql (Bld)PRESENTInvalid Interpretation CodeSt. Mary'S Medical CenterComment on above:Performed By: #### [id number] #### [facility] Laboratory [address] [place] [address] 155[address]Sglvwbbav (Bld) [#/Vol]1.0 E9/LNormal0.2-1.0St. [facility]S Medical CenterComment on above:Performed By: #### [id number] #### [facility] Laboratory [address] [place] [address]Fvzjmmmztpo (Bld) [#/Vol]7.5 E9/LNormal2.0-7.5FBrown Memorial HospitalComment on above:Performed By: #### [id number] #### [facility] Laboratory [address] [place] [address]Lbrdtjrcijr/100 WBC (Bld)74.1 %Semqau60.0-75.0St[facility]S Medical CenterComment on above:Performed By: #### [id number] #### [facility] Laboratory [address] [place] [address]Stxhuwra mean volume (Bld) [Entitic vol]8.3 fLNormal6.4-10.8 [facility] Medical CenterComment on above:Performed By: #### [id number] #### [facility] Laboratory [address] [place] [address]97[address]Wziwtzpen (Bld) [#/Vol]244.0 E9/IPocdci925.0-500.0St. [facility]S Medical CenterComment on above:Performed By: #### [id number] #### [facility] Laboratory [address] [place] [address]48[address]PLP (Bld) [#/Vol]3.7 E12/LLow4.3-5.9[facility] Comment on above:Performed By: #### [id number] #### [facility] Laboratory [address] [place] [address]VWY size Nom (Bld)SEE MORPHOLOGYInvalid Interpretation Code St. [facility]'S Medical CenterComment on above:Performed By: #### [id number] #### [facility] Laboratory [address] [place], [place] [address]YLW corrected for nucl RBC Auto (Bld) [#/Vol]10.2 E9/LNormal 4.0-11.0St[facility]S Medical CenterComment on above:Performed By: #### [id number] #### [facility] Laboratory [address] [place], [place] [address]MCXMNYTSZHavobje By: SYSTEM SYSTEM on 28-00-5956Zqfbfxmdt [Mass/Vol]1.8 mg/dLNormal1.3 - 2.4 mg/dLRemisol ChemPhosphate [Mass/Vol]3.8 mg/dLNormal1.9 - 4.6 mg/dLRemisol ChemCOAGULATIONOrdered By: Marybel Parks on 13-36-9009aAYK Coag (PPP) [Time]28.8 zVyoviy53.1 - 36.5 second(s)[facility] Auto Coag Comment on above:Interpretive Data: Parameter [...] the same coagulation reagent and instrumentation as [facility]. Currently there are no coagulation studies available worldwide for children to 14 days, andno normal ranges. Heparin therapeutic range (represented by Anti-Factor Xa activity of 0.2 - 0.4 U/mL) corresponds to PTT of 56.6 - 109.0 sec.INR Coag (PPP) [Relative time]1.04 {INR}Invalid Interpretation CodeTHE [facility] Auto CoagComment on above:Interpretive Data: INR results are specifically intended to assess patients stabilized on long-term Anticoagulation therapy suggested INR s Less Intensive Anticoagulation 2.0 3.0 Conventional Range 3.0 4.5PT Coag (PPP) [Time]11.7 sNormal9.4 - 12.5 second(s) [facility] Auto CoagComment on above:Interpretive Data: 15 days [...] the same coagulation reagent and instrumentation as [facility]. Currently there are no coagulation studies available worldwide for children to 14 days, andno normal ranges.Capillary Glucose POCon 98-36-1889Lulwnts [Mass/Vol]269 mg/dLHigh 55-99St. [facility]S Medical CenterComment on above:Result Comment: Notified RN/ Performed By: #### [id number] #### [facility] Laboratory [address] [place], [place] [address]Cltvrbx [Mass/Vol]279 mg/bAPkqh58-44Iggpos[address] Comment on above:Result Comment: Notified RN/MDPerformed By: #### [id number] #### [facility] Laboratory [address] [place], [place] [address]Pkiuvgc [Mass/Vol]285 mg/fTTkqn95-80Sppwkh[address] Comment on above:Result Comment: Repeat TestPerformed By: #### [id number] #### [facility] Laboratory [address] [place], [place] [address]Wkfvrct [Mass/Vol]242 mg/zYLfxv80-99Bqimzr[address] Comment on above:Result Comment: Repeat TestPerformed By: #### [id number] #### [facility] [address], [place] [address]Wpzsgzufhtafhuvnp Note - Case Manageron 02-14-2024 Interdisciplinary Note - Case ManagerInterdisciplinary Note - Can Carrier This SW rounded with patient in room 309 this morning. Patient is alert, oriented, and involved in his plan of care. He remains agreeable to going to 1) [facility] Acute [facility]hab - referral pending, 2) [facility] - they have accepted, or 3) [facility] - they have accepted. Acute Rehab is awaiting therapy notes to make their final determination. SW will update patient once determination isreceived. Patient did request that SW contact his , Yamileth, with an update this afternoon. TC made to Yamileth and she was updated on the above. She voiced that patient has been refusing her recommendation for [facility], however SW let her know that he was agreeable this morning. This SW had discussed the differences between Acute Rehab and SNF to patient.[facility] HospitalComment on above:Result Comment: Electronically Signed By: Fely Narvaez.br\Date and Time Signed: 02/14/24 12:15 EDTInterdisciplinary Note - Case ManagerInterdisciplinary Note - Can Carrier This SW rounded with patient in room 309 this morning. Patient is alert, oriented, and involved in his plan of care. He remains agreeable to going to 1) [facility] Acute [facility] - referral pending, 2) [facility] - they have accepted, or 3) [facility] - they have accepted. Acute Rehab is awaiting therapy notes to make their final determination. SW will update patient once determination isreceived. Patient did request that SW contact his , Yamileth, with an update this afternoon.[facility] Comment on above:Result Comment: Electronically Signed By: Fely Narvaez.br\Date and Time Signed: 02/14/24 09:38 EDTInterdisciplinary Note - OTon 99-63-6872Ilqjlljnmautrprbb Note - OTInterdisciplinary Note - OT OT [...] OT to follow daily progressing as pt tolerates.NormalSt. Mary'S Medical CenterMagnesiumon 85-39-1928Yuiuqhppp [Mass/Vol]1.8 mg/dLNormal1.3-2.4 [place] [facility] Medical CenterComment on above:Performed By: #### [id number] #### [facility] [address], [place] [address]WP & PTTon 11-31-6694pWZG Coag (PPP) [Time]28.8 second(s)Normal 25.1-36.5FBrown Memorial HospitalComment on above:Result Comment: Parameter 15 days [...] the same coagulation reagent and instrumentation as [facility]. Currently there are no coagulation studies available worldwide for children to 14 days, andno normal ranges. Heparin therapeutic range (represented by Anti-Factor Xa activity of 0.2 - 0.4 U/mL) corresponds to PTT of 56.6 - 109.0 sec.Performed By: #### [id number] #### [facility] [address], [place] [address]CTB Coag (PPP) [Relative time]1.04 {INR}Invalid Interpretation CodeSt. Mary'S Medical CenterComment on above:Result Comment: INR results are specifically intended to assess patients stabilized on long-term Anticoagulation therapy suggested INR?s ?Less Intensive Anticoagulation? 2.0 ? 3.0 Conventional Range 3.0 ? 4.5Performed By: #### [id number] #### [facility] [address], [place] [address]LU Coag (PPP) [Time]11.7 second(s)Normal9.4-12.5FBrown Memorial HospitalComment on above:Result Comment: 15 days - [...] the same coagulation reagent and instrumentation as [facility]. Currently there are no coagulation studies available worldwide for children to 14 days, andno normal ranges.Performed By: #### [id number] #### [facility] [address], [place] [address]Puibqconbivq 24-70-6841Jxhsddfbe [Mass/Vol]3.8 mg/dLNormal 1.9-4.6FBrown Memorial HospitalComment on above:Performed By: #### [id number] #### [facility] [address], [place] [address]hKQMar 09-59-9138aKTZ23 mL/min/1.73 m2Low>=59St. Mary'S Medical CenterComment on above:Order Comment: Order added by Discern Expert. Performed By: #### [id number] #### [facility] [address], [place] [address]YWAgb 65-17-4408Kewqz gap [Moles/Vol]11 mmol/LNormal6-16St. [facility]S Medical CenterComment on above:Performed By: #### [id number] #### [facility] [address], [place] [address]Ixnltsr [Mass/Vol]8.0 mg/dLLow8.9-11.1FBrown Memorial HospitalComment on above:Performed By: #### [id number] #### [facility] [address], [place] [address]Kvuenbka [Moles/Vol]99 mmol/UEzn458-035UjliipSt. Mary'S Medical CenterComment on above:Performed By: #### [id number] #### [facility] [address], [place] [address]IV9 [Moles/Vol]26 mmol/PCdrfxa92-20GdunqeSt. Mary'S Medical Center Comment on above:Performed By: #### [id number] #### [facility] [address], [place] [address]Fakziuxtme [Mass/Vol]1.6 mg/dLHigh0.5-1.3FBrown Memorial HospitalComment on above:Performed By: #### [id number] #### [facility] [address], [place] [address]Eszijtf [Mass/Vol]234 mg/cALgag54-657PtxqbrSt. Mary'S Medical CenterComment on above:Performed By: #### [id number] #### [facility] [address], [place] [address]Hmhpdnpzr [Moles/Vol]4.0 mmol/LNormal3.5-5.3FBrown Memorial HospitalComment on above:Performed By: #### [id number] #### [facility] [address], [place] [address]Lmqrdx [Moles/Vol]132 mmol/WRlf254-224KmbvhtSt. Mary'S Medical CenterComment on above:Performed By: #### [id number] #### [facility] [address], [place] [address]Alwx nitrogen [Mass/Vol]19 mg/dLNormal5-21St. Mary'S Medical CenterComment on above:Performed By: #### [id number] #### [facility] [address], [place] [address]Klrg nitrogen/Creatinine [Mass ratio]12 No QxiwxVlmrge66-63 [facility]S Medical CenterComment on above:Performed By: #### [id number] #### [facility] [address], [place] [address]LLN w/Indiceson 00-71-4393Epbpvnmeobw distribution width (RBC) [Ratio]18.8 %High10.9-14.2FBrown Memorial HospitalComment on above:Performed By: #### [id number] #### [facility] [address] [place] [address]Rsgoomcrgk (Bld) [Volume fraction]19.5 %Low37.7-49.0St. Mary'S Medical CenterComment on above:Performed By: #### [id number] #### [facility] [address] [place] [address]Hiysluorwc (Bld) [Mass/Vol]6.3 g/uMYbvodpjo76.5-17.5FBrown Memorial HospitalComment on above:Result Comment: Critical Result Verified by Repeat Analysis Results called to DAVID WELSH by [facility] and read back on 02/13/2024 05:48:17. Performed By: #### [id number] #### [facility] [address] [place] [address]Tyjfcqlfmng Auto Ql (Bld)PRESENTInvalid Interpretation Code St. [facility]'S Medical CenterComment on above:Performed By: #### [id number] #### [facility] [address] [place] [address]EVE (RBC) [Entitic mass]21.6 pgLow27.0-34.0St. [facility]'S Medical CenterComment on above:Performed By: #### [id number] #### [facility] [address], [place] [address]YQXT (RBC) [Mass/Vol]32.3 g/nZArkluf02.4-36.0St. [facility]'S Medical CenterComment on above:Performed By: #### [id number] #### [facility] [address] [place] [address]YAM (RBC) [Entitic vol]67.0 fLLow80.0-100.0St. [facility]'S Medical CenterComment on above:Performed By: #### [id number] #### [facility] [address], [place] [address]Izqwuiqvom Ql (Bld)PRESENTInvalid Interpretation CodeSt. Mary'S Medical CenterComment on above:Performed By: #### [id number] #### [facility] [address], [place] [address]Hponslht546.0 E9/JWtzjne743.0-500.0[facility] Comment on above:Performed By: #### [id number] #### [facility] [address], [place] [address]Zakktymv mean volume (Bld) [Entitic vol]8.2 fLNormal6.4-10.8 [facility]S Medical CenterComment on above:Performed By: #### [id number] #### [facility] [address] [place] [address]NLN (Bld) [#/Vol]2.9 E12/LLow4.3-5.9[facility] Comment on above:Performed By: #### [id number] #### [facility] [address], [place] [address]AZC size Nom (Bld)SEE MORPHOLOGYInvalid Interpretation Code St. [facility]'S Medical CenterComment on above:Performed By: #### [id number] #### [facility] [address] [place] [address]RCL corrected for nucl RBC Auto (Bld) [#/Vol]12.9 E9/LHigh 4.0-11.0St. [facility]S Medical CenterComment on above:Performed By: #### [id number] #### [facility] [address] [place] [address]MDFQCMAYSOxlapdk By: Simon Helm on 68-96-1243SsN6f (Bld) [Mass fraction]10.3 %High<=5.9%[facility] ChemAutoSSCHEMISTRYOrdered By: SYSTEM SYSTEM on 94-72-0069Bjrgigrvr [Mass/Vol]1.3 mg/dLNormal1.3 - 2.4 mg/dLRemisol Chem Phosphate [Mass/Vol]2.5 mg/dLNormal1.9 - 4.6 mg/dLRemisol ChemCOAGULATIONOrdered By: Pietro Garibay on 91-12-1871oODG Coag (PPP) [Time]27.5 eIwtxes06.1 - 36.5 second(s)[facility] Auto CoagComment on above:Interpretive Data: Parameter 15 [...] the same coagulation reagent and instrumentation as [facility]. Currently there are no coagulation studies available worldwide for children to 14 days, andno normal ranges. Heparin therapeutic range (represented by Anti-Factor Xa activity of 0.2 - 0.4 U/mL) corresponds to PTT of 56.6 - 109.0 sec.INR Coag (PPP) [Relative time]1.11 {INR}Invalid Interpretation CodeTHE [facility]ILDR[facility] Auto CoagComment on above:Interpretive Data: INR results are specifically intended to assess patients stabilized on long-term Anticoagulation therapy suggested INR s Less Intensive Anticoagulation 2.0 3.0 Conventional Range 3.0 4.5PT Coag (PPP) [Time]12.5 sNormal9.4 - 12.5 second(s) [facility] Auto CoagComment on above:Interpretive Data: 15 days [...] the same coagulation reagent and instrumentation as [facility]. Currently there are no coagulation studies available worldwide for children to 14 days, andno normal ranges.Capillary Glucose POCon 86-02-0332Lzhnvcw [Mass/Vol]332 mg/dLWyoming General Hospital [address] [place], [place] [address]Comment on above:Result Comment: Notified RN/MD Performed By: #### [id number] #### [facility] [address], [place] [address]Kslgwcd [Mass/Vol]194 mg/fDZokc55-61Bfhsnc[address] Comment on above:Result Comment: Notified RN/MDPerformed By: #### [id number] #### [facility] [address], [place] [address]Vcozeem [Mass/Vol]195 mg/tCQilr29-12Ptoaxo[address] Comment on above:Result Comment: Notified RN/MDPerformed By: #### [id number] #### [facility] [address], [place] [address]Vubkkcc [Mass/Vol]194 mg/nARgwu00-29Cwclyl[address] Comment on above:Result Comment: Notified RN/MDPerformed By: #### [id number] #### [facility] [address], [place] [address]Yaqmeqr [Mass/Vol]324 mg/aAYcev42-42Duezbf[address] Comment on above:Result Comment: Notified RN/MDPerformed By: #### [id number] #### [facility] [address], [place] [address]Gfkbcr Queryon 84-86-3010Envgfg QueryCoding Query From: Eliz Diaz RN To: [...] answer is desired or expected. Thank you!eliz 6396NormalSt. Mary'S Medical CenterHct & Hgbon 03-08-8697Lrkxavlfou (Bld) [Volume fraction]24.4 %Low37.7-49.0 [facility] Medical CenterComment on above:Performed By: #### [id number] #### [facility] [address], [place] [address]Vmjgqzodrj (Bld) [Mass/Vol]7.9 g/dLLow13.5-17.5FBrown Memorial HospitalComment on above:Performed By: #### [id number] #### [facility] [address], [place] [address]AflX5wch 43-48-6439AlL8e (Bld) [Mass fraction]10.3 %High<=5.9 [facility] Medical CenterComment on above:Performed By: #### [id number] #### [facility] [address], [place] [address]Pcncivfcaycdlmobm Note - Case Manageron 02-13-2024 Interdisciplinary Note - Case ManagerInterdisciplinary Note - Can Carrier CRM to room 309 Patient is awake, [...] CRM did try to call Spouse at [phone] and left VM. CRM did leave printed SNF list in room. Patient was provided CRM contact, white board updated. CRM following DC date TBD. CRM will get updates at 10 AM from hospitalist called CRM choices of [facility], [facility] and [facility] for rehab [facility] HospitalComment on above:Result Comment: Electronically Signed By: Raina Aguilar\.br\Date and Time Signed: 02/13/24 13:10 EDT Interdisciplinary Note - Case ManagerInterdisciplinary Note - Can Carrier CRM to room 309 Patient is awake, [...] CRM did try to call Spouse at [phone] and left VM. CRM did leave printed SNF list in room. Patient was provided CRM contact, white board updated. CRM following DC date TBD. CRM will get updates at 10 AM from [facility] centeristCleveland Clinic Mercy HospitalComment on above:Result Comment: Electronically Signed By: Raina Aguilar\.br\Date and Time Signed: 02/13/24 09:21 EDTInterdisciplinary Note - OT on 05-88-9555Rdufixqhrmkmnlmbg Note - OTInterdisciplinary Note - OT 02/13/24: OT orders received, chart reviewed. Holding OT eval this date as Pt has critically low Hbglevels. Will try again with OT eval when Pt is medically appropriate.[facility] HospitalInterdisciplinary Note - PTon 42-08-6597Ghdkynmexqfjxrtes Note - PTInterdisciplinary Note - PT Order received and chart reviewed. Pt with critical Hgb levels at this time. Will hold and attempt tomorrowNWashington Regional Medical Centerer [facility] Va Medical CenterMagnesiumon 92-19-4287Zjcffxuit [Mass/Vol]1.3 mg/dLNormal1.3-2.4[facility] Comment on above:Performed By: #### [id number] #### [facility] [address] [address]Xtjm OR Intraoperative Recordon 33-75-0737Dlpu OR Intraoperative RecordMain OR Intraoperative Record IntraOp Document Type FT Summary Primary Physician: Mike Montes MD Finalized Date/Time: 02/13/24 13:38:10 Pt. Name: MATTEO CHRISTIAN, MYRA Aceves/Sex: 1965 Male Med Rec #: [id number] Physician: Mike Montes MD Financial #: [id number] Pt. Type: I Room/Bed: [place] [address] Admit/Disch: 02/12/24 11:13:26 - Institution: Case Times [...] RN Role Performed Anesthesiologist Surgeon - Primary Trommel Tender - Primary Coach Time In 02/12/24 13:26:00 02/12/24 13:45:00 02/12/24 13:26:00 Time Out 02/12/24 14:44:00 02/12/24 14:31:00 02/12/24 14:44:00 Procedure KNEE AMPUTATION KNEE AMPUTATION KNEE AMPUTATION BELOW(Right) BELOW(Right) BELOW(Right) Comments , anesthesia greenskeeper supervisor Last Modified By: Sara STERN, Tyree Ruiz RN, Tyree Ruiz RN, Tyree Simmons 02/12/24 14:44:09 02/12/24 14:44:09 02/12/24 14:44:09 Entry 4 Entry 5 Entry 6 Case Attendee Robinson STERN, Jenise Jaquez CST, Radha Corona Role Performed Trommel Tender - Primary DOUBLE ENDING MACHINE OPERATOR/SA Scrub - Primary Time In 02/12/24 13:26:00 02/12/24 13:26:00 02/12/24 13:26:00 Time Out 02/12/24 14:44:00 02/12/24 14:44:00 02/12/24 14:44:00 Procedure KNEE AMPUTATION KNEE AMPUTATION KNEE AMPUTATION BELOW(Right) BELOW(Right) BELOW(Right) Comments in orientation Last Modified By: Sara STERN, Tyree Ruiz RN, Tyree Ruiz RN, Tyree Simmons 02/12/24 14:44:09 02/12/24 14:44:09 02/12/24 14:44:09 General Comments: Lima Puckett- student specialist, observing surgical case. Perioperative Protocols FT [...] I70.261-Atherosclerosis Postop Same As Preop Yes of [place] arteries of extremities with gangrene, right leg. Postop Diagnosis I70.261-Atherosclerosis Outcomes Met? Yes of [place] arteries of extremities with gangrene, right leg. [...] and tissue Entry 1 Skin Integrity Intact, Momence, Warm, & Skin Abnormality No Dry Outcomes Met? Yes Last Modified By: Tyree Ruiz RN 02/12/24 12:50:23 Post-Care Text: The patient is free from signs an (more content not included)...NormalFisher Baltimore Va Medical CenterPT & PTTon 20-63-7596kEMK Coag (PPP) [Time]27.5 second(s) Tnmuqw52.1-36.5Fisher [facility] Medical CenterComment on above:Result Comment: Parameter 15 [...] the same coagulation reagent and instrumentation as [facility]. Currently there are no coagulation studies available worldwide for children to 14 days, andno normal ranges. Heparin therapeutic range (represented by Anti-Factor Xa activity of 0.2 - 0.4 U/mL) corresponds to PTT of 56.6 - 109.0 sec.Performed By: #### [id number] #### [facility] [address], [place] [address]BYA Coag (PPP) [Relative time]1.11 {INR}Invalid Interpretation CodeFishJohns Hopkins Bayview Medical CenterComment on above:Result Comment: INR results are specifically intended to assess patients stabilized on long-term Anticoagulation therapy suggested INR?s ?Less Intensive Anticoagulation? 2.0 ? 3.0 Conventional Range 3.0 ? 4.5Performed By: #### [id number] #### [facility] [address], [place] [address]AD Coag (PPP) [Time]12.5 second(s)Normal9.4-12.5Fisher [facility] Medical CenterComment on above:Result Comment: 15 days [...] the same coagulation reagent and instrumentation as [facility]. Currently there are no coagulation studies available worldwide for children to 14 days, andno normal ranges.Performed By: #### [id number] #### [facility] [address], [place] [address]Cgwpbywwrcaf 68-13-6293Hlqqwbdwr [Mass/Vol]2.5 mg/dLNormal 1.9-4.6[facility] Medical CenterComment on above:Performed By: #### [id number] #### [facility] [address], [place] [address]DTBlj 02-13-2024# of Uvduz0Xksxaql Interpretation [facility] HospitalComment on above:Result Comment: 02/13/2024 6:32 OOU504 Blood product ready and called to David Hoskins at 02/13/2024 06:32:44 EDT by [id number]. Performed By: #### [id number] #### [facility] [address], [place] [address]Asbo Qtkgyfjf35101005Tyvbviv Interpretation [facility] HospitalComment on above:Performed By: #### [id number] #### [facility] [address], [place] [address]Tszkl to TransfuseYesNormalSt. Mary'S Medical CenterComment on above:Performed By: #### [id number] #### [facility] [address], [place] [address]Hbwuvsa TypeNone RequiredInvalid Interpretation [facility] HospitalComment on above:Performed By: #### [id number] #### [facility] [address], [place] [address]qBDLwm 55-42-7518rEUC80 mL/min/1.73 m2Low>=59St[facility]S Medical CenterComment on above:Order Comment: Order added by Discern Expert. Performed By: #### [id number] #### [facility] [address], [place] [address]TUK/Rhon 74-54-5847BHN/RhPositiveInvalid Interpretation Code [facility]S Medical CenterComment on above:Performed By: #### [id number] #### [facility] [address], [place] [address]XYD/Rh History Checkon 86-69-1198OZO/Rh History CheckType verified by second sNormalSt. Mary'S Medical CenterComment on above:Performed By: #### [id number] #### [facility] [address], [place] [address]KHL/Rh Retypeon 99-81-1641VMK/Rh Retype InterpPositiveInvalid Interpretation CodeSt. Mary'S Medical CenterComment on above:Performed By: #### [id number] #### [facility] [address], [place] [address]KHQSyr 83-23-4384XQOO Gel InterpNegativeNormalSt. Mary'S Medical CenterComment on above:Performed By: #### [id number] #### [facility] [address], [place] [address]BWXXE BANKOrdered By: Simon Helm on 89-02-7808TLK/Rh Retype InterpPositiveInvalid Interpretation [facility] BB SubsectionBLOOD BANKOrdered By: Any Gomez on 08-29-7400BNO/Rh InterpPositiveInvalid Interpretation [facility] BB SubsectionABSC Gel InterpNegative (02/12/24 12:00 PM)NormalTHE [facility] BB SubsectionBMPon 51-07-5794Dymja gap [Moles/Vol]12 mmol/LNormal6-16St[facility]S Medical CenterComment on above:Performed By: #### [id number] #### [facility] [address], [place] [address]Csdsirr [Mass/Vol]8.1 mg/dLLow8.9-11.1Fisher [facility] Medical CenterComment on above:Performed By: #### [id number] #### [facility] [address], [place] [address]Dvfwilsn [Moles/Vol]102 mmol/LMkvuew429-381RkmgyaSt. Mary'S Medical CenterComment on above:Performed By: #### [id number] #### [facility] [address], [place] [address]GI3 [Moles/Vol]26 mmol/BDnvilw52-53JrhkyuSt. Mary'S Medical Center Comment on above:Performed By: #### [id number] #### [facility] [address], [place] [address]Czrqgdxbqf [Mass/Vol]1.5 mg/dLHigh0.5-1.3FBrown Memorial HospitalComment on above:Performed By: #### [id number] #### [facility] [address], [place] [address]Mnqdgge [Mass/Vol]274 mg/aHJrne68-863OjrlvgSt. Mary'S Medical CenterComment on above:Performed By: #### [id number] #### [facility] [address], [place] [address]Bfvbbcifh [Moles/Vol]4.5 mmol/LNormal3.5-5.3FBrown Memorial HospitalComment on above:Performed By: #### [id number] #### [facility] [address], [place] [address]Fkswdn [Moles/Vol]135 mmol/DEqmabt692-172GwkwwtSt. Mary'S Medical CenterComment on above:Performed By: #### [id number] #### [facility] [address], [place] [address]Dhkf nitrogen [Mass/Vol]16 mg/dLNormal5-21St. [facility]S Medical CenterComment on above:Performed By: #### [id number] #### [facility] [address], [place] [address]Ezmh nitrogen/Creatinine [Mass ratio]11 No XmjmzGlovsc73-13 [facility]S Medical CenterComment on above:Performed By: #### [id number] #### [facility] [address], [place] [address]Nrsuq Bank ID#on [id number]#[id number] Interpretation CodeSt. Mary'S Medical CenterComment on above:Performed By: #### [id number] #### [facility] [address], [place] [address]WUY w/Indiceson 14-56-4628Tsqkdgvtoee distribution width (RBC) [Ratio]18.5 %High10.9-14.2FBrown Memorial HospitalComment on above:Performed By: #### [id number] #### [facility] [address], [place] [address]Zryfgvaths (Bld) [Volume fraction]23.5 %Low37.7-49.0St[facility]S Medical CenterComment on above:Performed By: #### [id number] #### [facility] [address] [place] [address]Eamkwsodbj (Bld) [Mass/Vol]7.2 g/dLLow13.5-17.5FBrown Memorial HospitalComment on above:Performed By: #### [id number] #### [facility] [address] [place] [address]Rqvdvsprelj Auto Ql (Bld)PRESENTInvalid Interpretation Code St[facility]S Medical CenterComment on above:Performed By: #### [id number] #### [facility] [address] [place] [address]TCT (RBC) [Entitic mass]21.1 pgLow27.0-34.0St[facility]S Medical CenterComment on above:Performed By: #### [id number] #### [facility] [address] [place] [address]UTWA (RBC) [Mass/Vol]30.7 g/dLLow31.4-36.0St[facility]S Medical CenterComment on above:Performed By: #### [id number] #### [facility] [address] [place] [address]ZXS (RBC) [Entitic vol]68.8 fLLow80.0-100.0St[facility]S Medical CenterComment on above:Performed By: #### [id number] #### [facility] [address] [place] [address]Wfueewuvic Ql (Bld)PRESENTInvalid Interpretation CodeSt. Mary'S Medical CenterComment on above:Performed By: #### [id number] #### [facility] [address], [place] [address]Kceuigge mean volume (Bld) [Entitic vol]8.[address]LNormal6.4-10.8 [address] Medical CenterComment on above:Performed By: #### [id number] #### [facility] [address], [place] [address]Twnxkalnp (Bld) [#/Vol]244.0 E9/MVidcfn543.0-500.0[facility] CenterComment on above:Performed By: #### [id number] #### [facility] [address], [place] [address]Tlkjykcjmntmr LM Ql (Bld)PRESENTInvalid Interpretation Code [facility] CenterComment on above:Performed By: #### [id number] #### [facility] [address] [place] [address] 57786COF (Bld) [#/Vol]3.4 E12/LLow4.3-5.9[facility] Comment on above:Performed By: #### [id number] #### [facility] [address] [place] [address] 77267PZV size Nom (Bld)NORMALInvalid Interpretation CodeSt. Mary'S Medical CenterComment on above:Performed By: #### [id number] #### [facility] [address] [place] [address]Dcgwex cells LM Ql (Bld)PRESENTInvalid Interpretation Code [facility] CenterComment on above:Performed By: #### [id number] #### [facility] [address], [place] [address]YFX corrected for nucl RBC Auto (Bld) [#/Vol]14.7 E9/LHigh 4.0-11.0[facility] CenterComment on above:Performed By: #### [id number] #### [facility] [address] [place] [address] 16764OWGUGOJGKHxxuqdo By: SYSTEM SYSTEM on 17-47-0840Cbuvqrp [Mass/Vol]580 mg/dLInvalid Interpretation Code55 - 199 mg/dLRemisol ChemComment on above:Result Comment: Critical Result Verified by Repeat Analysis Critical Result S_[id number] Called to and read back by: DAVID WELSH at: 02/12/2024 21:01:57 by:BABCapillary Glucose POCon 12-94-3333Zorljae [Mass/Vol] 441 mg/tKGfzb87-01MrpyicSt. Mary'S Medical CenterComment on above:Result Comment: Notified RN/MDPerformed By: #### [id number] #### [facility] [address], [place] [address]Doilxif [Mass/Vol]mg/tSLmwhkimg97-68XnmpzmSt. Mary'S Medical Center Comment on above:Result Comment: Notified RN/MDPerformed By: #### [id number] #### [facility] [address], [place] [address]Iaqrzdt [Mass/Vol]mg/lZEkvzlkoz63-17BifsuySt. Mary'S Medical Center Comment on above:Result Comment: Notified RN/MDPerformed By: #### [id number] #### [facility] [address], [place] [address]Ndccvjh [Mass/Vol]259 mg/oWArhm66-70YlxwpvSt. Mary'S Medical Center Comment on above:Result Comment: Repeat TestPerformed By: #### [id number] #### [facility] [address], [place] [address]Zuztlry [Mass/Vol]205 mg/vUSety60-65DihovkSt. Mary'S Medical Center Comment on above:Result Comment: Notified RN/MDPerformed By: #### [id number] #### [facility] [address], [place] [address]Ejvabtrnq 51-05-4903Jeuwhbf [Mass/Vol]580 mg/bPChtzhrxg81-093 [facility] CenterComment on above:Result Comment: Critical Result Verified by Repeat Analysis Critical Result S_[id number] Called to and read back by: DAVID WELSH at: 02/12/2024 21:01:57 by:BABPerformed By: #### [id number] #### [facility] [address] [place] [address]AKBXHMTKIQUlxdfrj By: SYSTEM SYSTEM on 28-99-5230Wmfvmatvzuyov LM Ql (Bld)PRESENT *NA* (02/12/24 4:47 PM)Invalid Interpretation CodeRemisol HemeTarget cells LM Ql (Bld) PRESENT *NA* (02/12/24 4:47 PM)Invalid Interpretation CodeRemisol HemeHct & Hgbon 02-12-2024 Hematocrit (Bld) [Volume fraction]22.7 %Low37.7-49.0[facility] Comment on above:Performed By: #### [id number] #### [facility] [address] [place] [address]Lyhhppybup (Bld) [Mass/Vol]7.3 g/dLLow13.5-17.5[facility] CenterComment on above:Performed By: #### [id number] #### [facility] [address] [place] [address]Ygml OR Intraoperative Recordon 60-26-9238Lyyx OR Intraoperative RecordMain OR Intraoperative Record IntraOp Document Type FT Summary Primary Physician: Mike Montes MD Finalized Date/Time: 02/12/24 14:48:28 Pt. Name: MATTEO CHRISTIAN, MYRA Aceves/Sex: 1965 Male Med Rec #: [id number] Physician: Mike Montes MD Financial #: [id number] Pt. Type: A Room/Bed: [facility] [...] Simmons Role Performed Anesthesiologist Surgeon - Primary Trommel Tender - Primary Coach Time In 02/12/24 13:26:00 02/12/24 13:45:00 02/12/24 13:26:00 Time Out 02/12/24 14:44:00 02/12/24 14:31:00 02/12/24 14:44:00 Procedure KNEE AMPUTATION KNEE AMPUTATION KNEE AMPUTATION BELOW(Right) BELOW(Right) BELOW(Right) Comments , anesthesia greenskeeper supervisor Last Modified By: Sara STERN, Tyree Ruiz RN, Tyree Ruiz RN, Tyree Simmons 02/12/24 14:44:09 02/12/24 14:44:09 02/12/24 14:44:09 Entry 4 Entry 5 Entry 6 Case Attendee Robinson STERN, Jenise Jaquez DOUBLE ENDING MACHINE OPERATOR, Radha Corona Role Performed Trommel Tender - Primary DOUBLE ENDING MACHINE OPERATOR/SA Scrub - Primary Time In 02/12/24 13:26:00 02/12/24 13:26:00 02/12/24 13:26:00 Time Out 02/12/24 14:44:00 02/12/24 14:44:00 02/12/24 14:44:00 Procedure KNEE AMPUTATION KNEE AMPUTATION KNEE AMPUTATION BELOW(Right) BELOW(Right) BELOW(Right) Comments in orientation Last Modified By: Sara STERN, Tyree Ruiz RN, Tyree Ruiz RN, Tyree Simmons 02/12/24 14:44:09 02/12/24 14:44:09 02/12/24 14:44:09 General Comments: Lima Puckett- student specialist, observing surgical case. Perioperative Protocols FT [...] Applicable) PreOp Antibiotic Yes Time Out Alexander Abruto CRNA, Given Participants Simon HERRERA, Mike Weathers, [...] I70.261-Atherosclerosis Postop Same As Preop Yes of [place] arteries of extremities with gangrene, right leg. Postop Diagnosis I70.261-Atherosclerosis Outcomes Met? Yes of [place] arteries of extremities with gangrene, right leg. [...] and tissue Entry 1 Skin Integrity Intact, Momence, Warm, & Skin Abnormality No Dry Outcomes Met? Yes Last Modified By: Tyree Ruiz RN 02/12/24 12:50:23 Post-Care Text: The patient is free from signs and symptoms of injury caused by extraneous objects Patient Positioning FT Pre-Ca (more content not included)...[facility] Recordon 66-06-1707Eimk OR PACU I RecordMain OR PACU I Record PACU Phase I Document Type FT Summary Primary Physician: Mike Montes MD Finalized Date/Time: 02/12/24 17:14:55 Pt. Name: MYRA PICKARD SR/Sex: 1965 Male Med Rec #: [id number] Physician: Mike Montes MD Financial #: [id number] Pt. Type: Room/Bed: [place] [address] Admit/Disch: 02/12/24 11:13:26 - Institution: Case Times [...] Signatures Signed By: Lima Bolaños RN 02/12/24 17:14[facility] Preoperative Recordon 13-03-1865Vumd OR Preoperative RecordMain OR Preoperative Record PreOp Document Type FT Summary Primary Physician: Mike Montes MD Finalized Date/Time: 02/12/24 13:26:50 Pt. Name: MYRA PICKARD SR/Sex: 1965 Male Med Rec #: [id number] Physician: Mike Montes MD Financial #: [id number] Pt. Type: Room/Bed: [place] [address] Admit/Disch: 02/12/24 11:13:26 - Institution: Case Times [...] Signatures Signed By: Tyree Ruiz RN 02/12/24 13:26NormalSt. Mary'S Medical CenterPT & PTTon 77-52-5121jYQQ Coag (PPP) [Time]28.0 second(s)Befcyx44.1-36.5FBrown Memorial HospitalComment on above:Result Comment: Parameter 15 days [...] the same coagulation reagent and instrumentation as [facility]. Currently there are no coagulation studies available worldwide for children to 14 days, andno normal ranges. Heparin therapeutic range (represented by Anti-Factor Xa activity of 0.2 - 0.4 U/mL) corresponds to PTT of 56.6 - 109.0 sec.Performed By: #### [id number] #### [facility] [address], [place] [address]BNU Coag (PPP) [Relative time]1.12 {INR}Invalid Interpretation [facility] HospitalComment on above:Result Comment: INR results are specifically intended to assess patients stabilized on long-term Anticoagulation therapy suggested INR?s ?Less Intensive Anticoagulation? 2.0 ? 3.0 Conventional Range 3.0 ? 4.5Performed By: #### [id number] #### [facility] [address], [place] [address]CA Coag (PPP) [Time]12.6 second(s)High9.4-12.5FBrown Memorial HospitalComment on above:Result Comment: 15 days - [...] the same coagulation reagent and instrumentation as [facility]. Currently there are no coagulation studies available worldwide for children to 14 days, andno normal ranges.Performed By: #### [id number] #### [facility] [address], [place] [address]wRAFop 49-10-9842hTZE73 mL/min/1.73 m2Low>=59[facility] Clevelander [facility] CenterComment on above:Order Comment: Order added by Discern Expert. Performed By: #### [id number] #### [facility] [address], [place] [address]Gocwksefd partial thromboplastin time (aPTT) in platelet poor plasma by coagulation aon 00-45-4577jLAR Coag (PPP) [Time]25.6 s22.3-36.2 [facility] HospitalaPTT Coag (PPP) [Time]Activated partial thromboplastin time (aPTT) in platelet poor plasma by coagulation a22.3-36.2 [facility] HospitalBasophils Auto (Bld) [#/Vol]on 02-08-2024 Basophils (Bld) [#/Vol]0.1 10 3/uL0.0-0.1FOhioHealth Grant Medical Center Basophils (Bld) [#/Vol]Automated basophil count0.0-0.1FOhioHealth Grant Medical CenterBasophils/100 WBC Auto (Bld)on 17-82-0493Bhzdtxuyh/100 WBC (Bld)0.7 % 0.2-2.0[facility] HospitalBasophils/100 WBC (Bld)Automated basophil %0.2-2.0[facility] HospitalEosinophils/100 WBC Auto (Bld) on 51-66-6949Hiqoopngueo/100 WBC (Bld)3.1 %0.9-7.0[facility] HospitalEosinophils/100 WBC (Bld)Automated eosinophil %0.9-7.0[facility] HospitalErythrocyte distribution width Auto (RBC) [Ratio]on 02-08-2024 Erythrocyte distribution width (RBC) [Ratio]16.3 %High11.0-15.0[facility] HospitalErythrocyte distribution width (RBC) [Ratio]Erythrocyte distribution width [Ratio] by Automated nwbkbMhuw90.0-15.0[facility] HospitalEstimated glomerular filtration rate (GFR) non- Americanon 76-58-4758DPS/1.73 sq M.predicted among non-blacks MDRD (S/P/Bld) [Vol rate/Area]38 mL/min/{1.73_m2}Low>=60[facility] HospitalGFR/1.73 sq M.predicted among non-blacks MDRD (S/P/Bld) [Vol rate/Area]Estimated glomerular filtration rate (GFR) non- AmericanLow>=60[facility] HospitalHematocrit Auto (Bld) [Volume fraction]on 87-99-5657Jrysjgygms (Bld) [Volume fraction]29.8 %Low42.0-54.0[facility] HospitalHematocrit (Bld) [Volume fraction]Hematocrit [Volume Fraction] of Blood by Automated count Low42.0-54.0[facility] HospitalHemoglobin [Mass/volume] in Bloodon 23-92-6932Dwmpxvhtfu (Bld) [Mass/Vol]9.1 g/dLLow14.0-18.0[facility] HospitalHemoglobin (Bld) [Mass/Vol]Hemoglobin [Mass/volume] in BloodLow 14.0-18.0[facility] HospitalINR in Platelet poor plasma by Coagulation assayon 05-28-4467TEW Coag (PPP) [Relative time]1.02 {INR}[facility] HospitalComment on above:DESIRED INR:2.0-3.0 CONDITIONS NOT LISTED BELOW2.5-3.5 FOR PROSTHETIC HEART VALVE REPLACEMENT2.5-3.5 RECURRENT THROMBOSISINR Coag (PPP) [Relative time]INR in Platelet poor plasma by Coagulation assayGalion HospitalComment on above:DESIRED INR:2.0-3.0 CONDITIONS NOT LISTED BELOW2.5-3.5 FOR PROSTHETIC HEART VALVE REPLACEMENT2.5-3.5 RECURRENT THROMBOSISLaboratory - Chemistry and Chemistry - challengeon 91-03-4180Ypmywsc [Mass/Vol]9.4 mg/dL8.5-10.1FOhioHealth Grant Medical CenterChloride [Moles/Vol]99 mmol/W64-770YlwupiahvGalion HospitalCO2 [Moles/Vol]28.9 mmol/L21.0-32.0[facility] Creatinine [Mass/Vol]1.84 mg/dLHigh0.70-1.30[facility] GFR/1.73 sq M.predicted MDRD (S/P/Bld) [Vol rate/Area]46 mL/min/{1.73_m2}Low>=60 [facility] HospitalGlucose [Mass/Vol]184 mg/wUFqgm22-480TiejdvfzbGalion HospitalPotassium [Moles/Vol]4.0 mmol/L3.5-5.1FMary Rutan Hospitalodium [Moles/Vol]138 mmol/K712-803ApfccowlrGalion HospitalUrea nitrogen [Mass/Vol]21.0 mg/dLHigh7.0-18.0[facility] HospitalUrea nitrogen/Creatinine [Mass ratio]11.4 mg/mgGalion HospitalLaboratory - Hematology and Cell countson 26-04-9742Ikfmgfyg granulocytes/100 WBC (Bld)0.4 %0.0-0.5FOhioHealth Grant Medical Center Leukocytes [#/volume] corrected for nucleated erythrocytes in Blood by Automated counon 90-11-6049VXX corrected for nucl RBC Auto (Bld) [#/Vol]10.1 10 3/uL 4.0-11.0[facility] HospitalWBC corrected for nucl RBC Auto (Bld) [#/Vol]Leukocytes [#/volume] corrected for nucleated erythrocytes in Blood by Automated coun4.0-11.0[facility] HospitalLymphocytes Auto (Bld) [#/Vol]on 03-07-9694Urwokplfjuz (Bld) [#/Vol]1.6 10 3/uL1.2-3.8[facility] HospitalLymphocytes (Bld) [#/Vol]Lymphocytes [#/volume] in Blood by Automated count1.2-3.8[facility] HospitalLymphocytes/100 WBC Auto (Bld)on 54-90-7653Yggtfgwjhui/100 WBC (Bld)15.6 %Low20.5-60.0[facility] HospitalLymphocytes/100 WBC (Bld)Lymphocytes/100 leukocytes in Blood by Automated cixnnTiv25.5-60.0[facility] Auto (RBC) [Entitic mass]on 89-87-2424OWV (RBC) [Entitic mass]21.9 pgLow25.9-34.0 [facility] (RBC) [Entitic mass]MCH [Entitic mass] by Automated kvpinByj62.9-34.0[facility] HospitalHC Auto (RBC) [Mass/Vol]on 95-19-5319NTCC (RBC) [Mass/Vol]30.5 g/dL29.9-35.2FWright-Patterson Medical CenterHC (RBC) [Mass/Vol]MCHC [Mass/volume] by Automated count 29.9-35.2FOhioHealth Grant Medical CenterMCV Auto (RBC) [Entitic vol]on 22-71-8707YJX (RBC) [Entitic vol]71.8 fLLow80.0-94.0[facility] HospitalV (RBC) [Entitic vol]MCV [Entitic volume] by Automated gixmdAtq42.0-94.0 [facility] HospitalMonocytes Auto (Bld) [#/Vol]on 02-08-2024 Monocytes (Bld) [#/Vol]0.8 10 3/uL0.3-0.8[facility] Monocytes (Bld) [#/Vol]Automated blood monocyte count0.3-0.8[facility] HospitalMonocytes/100 WBC Auto (Bld)on 18-05-9379Gzzdnhghw/100 WBC (Bld) 7.5 %1.7-12.0[facility] HospitalMonocytes/100 WBC (Bld)Automated monocyte %1.7-12.0[facility] HospitalNeutrophils Auto (Bld) [#/Vol]on 30-56-4073Hdpgqlrwiis (Bld) [#/Vol]7.4 10 3/uLHigh1.4-6.5FOhioHealth Grant Medical CenterNeutrophils (Bld) [#/Vol]Neutrophils [#/volume] in Blood by Automated countHigh1.4-6.5FOhioHealth Grant Medical CenterNeutrophils/100 WBC Auto (Bld)on 95-10-2053Nvyhjmngmex/100 WBC (Bld)72.7 %43.0-75.0[facility] HospitalNeutrophils/100 WBC (Bld)Automated neutrophil %43.0-75.0 [facility] HospitalNo Panel Informationon 34-33-4086Xfzvyuexbym # (Auto)0.3 10 3/uL0.0-0.7FOhioHealth Grant Medical CenterImmature Granulocyte # (Auto)0.04 10 3/uLHigh0.00-0.03[facility]11.4FOhioHealth Grant Medical Center0.3 10 3/uL0.0-0.7FOhioHealth Grant Medical Center21.0 mg/dLHigh7.0-18.0[facility]9.4 mg/dL8.5-10.1FOhioHealth Grant Medical Center99 mmol/C79-077TblotskdlGalion Hospital28.9 mmol/L21.0-32.0[facility]0.04 10 3/uLHigh0.00-0.03 [facility]1.84 mg/dLHigh0.70-1.30[facility]0.4 %0.0-0.5FOhioHealth Grant Medical Center46Low>=60[facility]184 mg/rQLyso29-854MjprsmaotGalion Hospital4.0 mmol/L3.5-5.1FOhioHealth Grant Medical Center138 mmol/H607-690QbunyjrydGalion HospitalPlatelet mean volume Auto (Bld) [Entitic vol]on 48-16-3800Ahwpbdzq mean volume (Bld) [Entitic vol]10.7 fL9.5-13.5FOhioHealth Grant Medical CenterPlatelet mean volume (Bld) [Entitic vol]Platelet mean volume [Entitic volume] in Blood by Automated count9.5-13.5FOhioHealth Grant Medical CenterPlatelets Auto (Bld) [#/Vol]on 85-71-9616Xhllbrjbi (Bld) [#/Vol] 322 10 3/qF875-888XzvbqlcrmGalion HospitalPlatelets (Bld) [#/Vol] Platelets [#/volume] in Blood by Automated -372IagmmeylvGalion HospitalProthrombin time (PT)on 72-43-1819PB Coag (PPP) [Time]10.8 s 9.0-11.6FOhioHealth Grant Medical CenterPT Coag (PPP) [Time]Prothrombin time (PT)9.0-11.6FOhioHealth Grant Medical CenterRB Auto (Bld) [#/Vol]on 02-08-2024 RBC (Bld) [#/Vol]4.15 10 6/uLLow4.70-6.10[facility] HospitalRB (Bld) [#/Vol]Erythrocytes [#/volume] in Blood by Automated countLow4.70-6.10 [facility] Centererum or plasma anion gap determinationon 27-41-8781Ggbcj gap [Moles/Vol]14.1 mmol/LFOhioHealth Grant Medical CenterAnion gap [Moles/Vol]Serum or plasma anion gap determinationGalion HospitalALL CBC WITH AUTO DIFFon 35-95-8716MWXILEHOE ABSOLUTE AUTO0.1NOMS HealthcareBasophils/100 WBC (Bld)1.2 %0.2 - 2.0 %NOMS HealthcareEosinophils/100 WBC (Bld)2.9 %0.9 - 7.0 %NOMS HealthcareErythrocyte distribution width (RBC) [Ratio]16.4 %High11.0 - 15.0 %[facility]OMS HealthcareHematocrit (Bld) [Volume fraction] 28.7 %Low42.0 - 54.0 %NOMS HealthcareHemoglobin (Bld) [Mass/Vol]8.7 g/dLLow14.0 - 18.0 g/dLNOMS HealthcareIMMATURE GRANULOCYTES ABS AUTO0.06HighNOMS Healthcare Immature granulocytes/100 WBC (Bld)0.7 %High0.0 - 0.5 %[facility] Interpretation and review of laboratory resultsAbnormalPershing Memorial Hospital LYMPHOCYTES ABSOLUTE AUTO1.8NOSt. Louis Behavioral Medicine InstituteLymphocytes/100 WBC (Bld)21.5 %20.5 - 60.0 %[facility] HospitalH (RBC) [Entitic mass]22.3 pgLow25.9 - 34.0 pgProgress West HospitalHC (RBC) [Mass/Vol]30.3 g/dL29.9 - 35.2 g/dLProgress West HospitalV (RBC) [Entitic vol]73.6 fLLow80.0 - 94.0 fLPershing Memorial HospitalMONOCYTES ABSOLUTE AUTO0.7 [facility] HospitalMonocytes/100 WBC (Bld)8.7 %1.7 - 12.0 %[facility] NEUTROPHILS ABSOLUTE AUTO5.4NOSt. Louis Behavioral Medicine InstituteNeutrophils/100 WBC (Bld)65.0 %43.0 - 75.0 %[facility] HospitalPlatelet mean volume (Bld) [Entitic vol]10.4 fL9.5 - 13.5 fLPershing Memorial HospitalTB EO #0.2NOMS [facility]c Medical CenterTB ABG319IZRGPutnam County Memorial Hospital RBC3.90 LowPershing Memorial HospitalTB WBC8.3[facility] Memorial HospitalCLINISYNCNLee's Summit HospitalActivated partial thromboplastin time (aPTT) in platelet poor plasma by coagulation aon 88-85-7036eOJA Coag (PPP) [Time]25.3 s22.3-36.2FOhioHealth Grant Medical Center aPTT Coag (PPP) [Time]Activated partial thromboplastin time (aPTT) in platelet poor plasma by coagulation a22.3-36.2FOhioHealth Grant Medical CenterBasophils Auto (Bld) [#/Vol]on 57-07-9186Vizligbfw (Bld) [#/Vol]0.1 10 3/uL0.0-0.1 [facility] HospitalBasophils (Bld) [#/Vol]Automated basophil count 0.0-0.1FOhioHealth Grant Medical CenterBasophils/100 WBC Auto (Bld)on 39-30-9150Ftlpryjpb/100 WBC (Bld)1.2 %0.2-2.0[facility] Basophils/100 WBC (Bld)Automated basophil %0.2-2.0[facility] HospitalEosinophils/100 WBC Auto (Bld)on 60-31-8579Mbadzpaestg/100 WBC (Bld)2.9 % 0.9-7.0[facility] HospitalEosinophils/100 WBC (Bld)Automated eosinophil %0.9-7.0[facility] HospitalErythrocyte distribution width Auto (RBC) [Ratio]on 32-01-1975Vmbsjjxlvfl distribution width (RBC) [Ratio]16.4 %High11.0-15.0[facility] HospitalErythrocyte distribution width (RBC) [Ratio]Erythrocyte distribution width [Ratio] by Automated hygoxPcmd79.0-15.0[facility] HospitalEstimated glomerular filtration rate (GFR) non- Americanon 64-39-1869BMF/1.73 sq M.predicted among non-blacks MDRD (S/P/Bld) [Vol rate/Area]34 mL/min/{1.73_m2} Low>=60[facility] HospitalGFR/1.73 sq M.predicted among non-blacks MDRD (S/P/Bld) [Vol rate/Area]Estimated glomerular filtration rate (GFR) non- AmericanLow>=60[facility] HospitalHematocrit Auto (Bld) [Volume fraction]on 16-85-9447Cyyfqzspdy (Bld) [Volume fraction]28.7 %Low 42.0-54.0[facility] HospitalHematocrit (Bld) [Volume fraction] Hematocrit [Volume Fraction] of Blood by Automated lczejPcm75.0-54.0[facility] HospitalHemoglobin [Mass/volume] in Bloodon 97-58-7454Sngvnxplcb (Bld) [Mass/Vol]8.7 g/dLLow14.0-18.0[facility] HospitalHemoglobin (Bld) [Mass/Vol]Hemoglobin [Mass/volume] in OxvvcMpv33.0-18.0[facility] HospitalINR in Platelet poor plasma by Coagulation assayon 00-31-0292BGM Coag (PPP) [Relative time]1.02 {INR}[facility] HospitalComment on above:DESIRED INR:2.0-3.0 CONDITIONS NOT LISTED BELOW2.5-3.5 FOR PROSTHETIC HEART VALVE REPLACEMENT2.5-3.5 RECURRENT THROMBOSISINR Coag (PPP) [Relative time]INR in Platelet poor plasma by Coagulation assayGalion HospitalComment on above:DESIRED INR:2.0-3.0 CONDITIONS NOT LISTED BELOW2.5-3.5 FOR PROSTHETIC HEART VALVE REPLACEMENT2.5-3.5 RECURRENT THROMBOSISLaboratory - Chemistry and Chemistry - challengeon 14-10-7796Wczumgo [Mass/Vol]9.0 mg/dL 8.5-10.1FOhioHealth Grant Medical CenterChloride [Moles/Vol]100 mmol/L98-107 [facility] HospitalCO2 [Moles/Vol]26.7 mmol/L21.0-32.0[facility] HospitalCreatinine [Mass/Vol]2.03 mg/dLHigh0.70-1.30[facility] HospitalGFR/1.73 sq M.predicted MDRD (S/P/Bld) [Vol rate/Area]41 mL/min/{1.73_m2}Low>=60[facility] HospitalGlucose [Mass/Vol]268 mg/vFVjpq03-493QwcoilgzsGalion HospitalPotassium [Moles/Vol]4.3 mmol/L 3.5-5.1FMary Rutan Hospitalodium [Moles/Vol]137 mmol/B655-201 [facility] HospitalUrea nitrogen [Mass/Vol]25.0 mg/dLHigh7.0-18.0 [facility] HospitalUrea nitrogen/Creatinine [Mass ratio]12.3 mg/mg [facility] HospitalLaboratory - Hematology and Cell countson 10-35-6699Umantbun granulocytes/100 WBC (Bld)0.7 %High0.0-0.5FOhioHealth Grant Medical CenterLeukocytes [#/volume] corrected for nucleated erythrocytes in Blood by Automated counon 34-96-1485XWW corrected for nucl RBC Auto (Bld) [#/Vol]8.3 10 3/uL4.0-11.0[facility] HospitalWBC corrected for nucl RBC Auto (Bld) [#/Vol]Leukocytes [#/volume] corrected for nucleated erythrocytes in Blood by Automated coun4.0-11.0[facility] Lymphocytes Auto (Bld) [#/Vol]on 61-80-3988Urztugxzddb (Bld) [#/Vol]1.8 10 3/uL 1.2-3.8[facility] HospitalLymphocytes (Bld) [#/Vol]Lymphocytes [#/volume] in Blood by Automated count1.2-3.8[facility] Lymphocytes/100 WBC Auto (Bld)on 84-54-4367Wupxxtnfbub/100 WBC (Bld)21.5 % 20.5-60.0[facility] HospitalLymphocytes/100 WBC (Bld) Lymphocytes/100 leukocytes in Blood by Automated count20.5-60.0[facility] Auto (RBC) [Entitic mass]on 57-48-3071LYB (RBC) [Entitic mass]22.3 pgLow25.9-34.0[facility] HospitalH (RBC) [Entitic mass]MCH [Entitic mass] by Automated jnuhdGat15.9-34.0[facility] HospitalHC Auto (RBC) [Mass/Vol]on 04-43-9309CZBX (RBC) [Mass/Vol]30.3 g/dL29.9-35.2FWright-Patterson Medical CenterHC (RBC) [Mass/Vol]MCHC [Mass/volume] by Automated count29.9-35.2FOhioHealth Grant Medical CenterMCV Auto (RBC) [Entitic vol]on 42-03-4926ZET (RBC) [Entitic vol] 73.6 fLLow80.0-94.0[facility] HospitalV (RBC) [Entitic vol]MCV [Entitic volume] by Automated ccjgmVjp39.0-94.0[facility] Monocytes Auto (Bld) [#/Vol]on 62-82-8737Ytiketqkm (Bld) [#/Vol]0.7 10 3/uL 0.3-0.8[facility] HospitalMonocytes (Bld) [#/Vol]Automated blood monocyte count0.3-0.8[facility] HospitalMonocytes/100 WBC Auto (Bld)on 46-34-9921Hsdzaxuub/100 WBC (Bld)8.7 %1.7-12.0[facility] HospitalMonocytes/100 WBC (Bld)Automated monocyte %1.7-12.0[facility] HospitalNeutrophils Auto (Bld) [#/Vol]on 01-12-0176Vbyjvxnhmor (Bld) [#/Vol]5.4 10 3/uL1.4-6.5FOhioHealth Grant Medical CenterNeutrophils (Bld) [#/Vol]Neutrophils [#/volume] in Blood by Automated count1.4-6.5FOhioHealth Grant Medical CenterNeutrophils/100 WBC Auto (Bld)on 02-01-2024 Neutrophils/100 WBC (Bld)65.0 %43.0-75.0[facility] Neutrophils/100 WBC (Bld)Automated neutrophil %43.0-75.0[facility] HospitalNo Panel Informationon 99-02-8795Kyhztkynsix # (Auto)0.2 10 3/uL 0.0-0.7FOhioHealth Grant Medical CenterImmature Granulocyte # (Auto)0.06 10 3/uLHigh0.00-0.03[facility]12.3FOhioHealth Grant Medical Center25.0 mg/dLHigh7.0-18.0[facility]0.2 10 3/uL0.0-0.7 [facility]9.0 mg/dL8.5-10.1FOhioHealth Grant Medical Center100 mmol/W99-767GeoovrbanGalion Hospital26.7 mmol/L21.0-32.0 [facility]2.03 mg/dLHigh0.70-1.30[facility]0.06 10 3/uLHigh0.00-0.03[facility]41Low >=60[facility]0.7 %High0.0-0.5FOhioHealth Grant Medical Center268 mg/qSUqyd27-693NfafghiehGalion Hospital4.3 mmol/L3.5-5.1 [facility]137 mmol/C676-165HdcvwuursGalion HospitalPlatelet mean volume Auto (Bld) [Entitic vol]on 67-15-8830Gxxhaujs mean volume (Bld) [Entitic vol]10.4 fL9.5-13.5FOhioHealth Grant Medical Center Platelet mean volume (Bld) [Entitic vol]Platelet mean volume [Entitic volume] in Blood by Automated count9.5-13.5FOhioHealth Grant Medical CenterPlatelets Auto (Bld) [#/Vol]on 56-29-9972Hsrpqufrz (Bld) [#/Vol]397 10 3/hH431-124RqyvkbzeaGalion HospitalPlatelets (Bld) [#/Vol]Platelets [#/volume] in Blood by Automated igoam061-186SebymknstGalion HospitalProthrombin time (PT)on 07-66-5966DC Coag (PPP) [Time]10.8 s9.0-11.6FOhioHealth Grant Medical CenterPT Coag (PPP) [Time]Prothrombin time (PT)9.0-11.6FOhioHealth Grant Medical Center RBC Auto (Bld) [#/Vol]on 36-66-3515JXR (Bld) [#/Vol]3.90 10 6/uLLow4.70-6.10 [facility] HospitalRBC (Bld) [#/Vol]Erythrocytes [#/volume] in Blood by Automated countLow4.70-6.10[facility] Centererum or plasma anion gap determinationon 96-53-8861Wrwpm gap [Moles/Vol]14.6 mmol/L [facility] HospitalAnion gap [Moles/Vol]Serum or plasma anion gap determinationGalion HospitalProvider Letteron 01-29-2024 Provider LetterProvider Letter January 29, 2024 MYRA [facility] [address] [place] [address] [address] [place] [address] : 1965 Dear Myra, We have been [...] [facility] [address], [address] [place] [address] VhonupFnnpoiCleveland Clinic Mercy HospitalOperative Reporton [id number] ReportOperative Report PREOPERATIVE DIAGNOSIS: Right lower extremity [...] induced andthen obtained a micro-access upsized to 5-Bulgarian sheath, placed the catheter in the abdominal [...] well. Mike Montes M.D. ca Dictated: 01/08/2024 [id number] Transcribed: 01/08/2024[facility] HospitalComment on above:Result Comment: Electronically Signed By: Mike Montes MD\.br\Date and Time Signed: 01/11/24 18:26 EDTCoding Queryon [id number] QueryCoding Query From: Viviane Azul To: Mike Montes MD; Cc: Monique Saldivar; Sent: 01/10/2024 14:42:56 EDT ! Subject: Coding Query (Template) CODING COMMUNICATION: _XX_ Procedure information missing: Please document the Pre and Post-Op Diagnosis. Please feel free to contact the coding department with any questions. Thank you! [facility]cy Memorial HospitalBMPon 33-75-2488Mjqnd gap [Moles/Vol]13 mmol/LNormal6-16[facility] CenterComment on above:Performed By: #### [id number] #### [facility] [address], [place] [address]Xfxidqm [Mass/Vol]9.1 mg/dLNormal8.9-11.1[facility] Va Medical CenterComment on above:Performed By: #### [id number] #### [facility] [address], [place] [address]Trlvgsnd [Moles/Vol]103 mmol/JCdpyoq581-432PjaojySt. Mary'S Medical CenterComment on above:Performed By: #### [id number] #### [facility] [address], [place] [address]JX4 [Moles/Vol]25 mmol/DIevyhs71-15HlcphpSt. Mary'S Medical Center Comment on above:Performed By: #### [id number] #### [facility] [address], [place] [address]Cqjwdetrjx [Mass/Vol]1.9 mg/dLHigh0.5-1.3FBrown Memorial HospitalComment on above:Performed By: #### [id number] #### [facility] [address], [place] [address]Otbicls [Mass/Vol]138 mg/pCBktktr92-048PwifemSt. Mary'S Medical CenterComment on above:Performed By: #### [id number] #### [facility] [address], [place] [address]Nhsbqphyz [Moles/Vol]4.2 mmol/LNormal3.5-5.3FBrown Memorial HospitalComment on above:Performed By: #### [id number] #### [facility] [address], [place] [address]Omfayx [Moles/Vol]137 mmol/KVbnctx759-282EnntpxSt. Mary'S Medical CenterComment on above:Performed By: #### [id number] #### [facility] [address], [place] [address]Rjpe nitrogen [Mass/Vol]26 mg/dLHigh5-21St. Mary'S Medical CenterComment on above:Performed By: #### [id number] #### [facility] [address], [place] [address]Uruf nitrogen/Creatinine [Mass ratio]14 No XkfkbXakdbn69-98 [facility] Medical CenterComment on above:Performed By: #### [id number] #### [facility] [address], [place] [address]ZXH w/ Auto Diffon 10-82-6792Bamskaenp/100 WBC (Bld)1.2 %Normal 0.0-2.0St[facility]S Medical CenterComment on above:Performed By: #### [id number] #### [facility] [address], [place] [address]Dnrhpbrpo/Leukocytes Auto (Bld) [Pure # fraction]0.1 E9/LNormal 0.0-0.2FBrown Memorial HospitalComment on above:Performed By: #### [id number] #### [facility] [address] [place] [address]Lyvcwrezfsw (Bld) [#/Vol]0.4 E9/LNormal0.0-0.5FBrown Memorial HospitalComment on above:Performed By: #### [id number] #### [facility] [address] [place] [address]Kaoeyjbzvqa/100 WBC (Bld)4.3 %Normal0.0-8.0St. [facility]S Medical CenterComment on above:Performed By: #### [id number] #### [facility] [address] [place] [address]Zvfepmxcmbs distribution width (RBC) [Ratio]17.3 %High10.9-14.2 [facility] Medical CenterComment on above:Performed By: #### [id number] #### [facility] [address] [place] [address]Zvanhjgedf (Bld) [Volume fraction]26.8 %Low37.7-49.0St. [facility]S Medical CenterComment on above:Performed By: #### [id number] #### [facility] [address] [place] [address]Ttpoxyjean (Bld) [Mass/Vol]8.8 g/dLLow13.5-17.5FBrown Memorial HospitalComment on above:Performed By: #### [id number] #### [facility] [address] [place] [address]Wpemnxxbvoh Auto Ql (Bld)PRESENTInvalid Interpretation Code [facility] Medical CenterComment on above:Performed By: #### [id number] #### [facility] [address] [place] [address]Eamovbalugl (Bld) [#/Vol]2.3 E9/LNormal1.0-4.0St[facility] Medical CenterComment on above:Performed By: #### [id number] #### [facility] [address], [place] [address]Gepljjbyljl/100 WBC (Bld)22.6 %Coqrdv88.0-50.0St[facility]S Medical CenterComment on above:Performed By: #### [id number] #### [facility] [address] [place] [address]MZD (RBC) [Entitic mass]24.5 pgLow27.0-34.0St. [facility]S Medical CenterComment on above:Performed By: #### [id number] #### [facility] [address] [place] [address]JOUO (RBC) [Mass/Vol]33.0 g/tPTwnyug55.4-36.0St. [facility] Medical CenterComment on above:Performed By: #### [id number] #### [facility] [address] [place] [address]DQN (RBC) [Entitic vol]74.2 fLLow80.0-100.0St. [facility]S Medical CenterComment on above:Performed By: #### [id number] #### [facility] [address] [place] [address]Nqrbapvacw Ql (Bld)PRESENTInvalid Interpretation CodeSt. Mary'S Medical CenterComment on above:Performed By: #### [id number] #### [facility] [address] [place] [address]Vmygnqvof (Bld) [#/Vol]0.9 E9/LNormal0.2-1.0St. [facility] Medical CenterComment on above:Performed By: #### [id number] #### [facility] [address] [place] [address]Ehkahhecqnt (Bld) [#/Vol]6.6 E9/LNormal2.0-7.5FBrown Memorial HospitalComment on above:Performed By: #### [id number] #### [facility] [address] [place] [address]Uoqteetdlnb/100 WBC (Bld)63.4 %Xsidpm27.0-75.0St[facility] Medical CenterComment on above:Performed By: #### [id number] #### [facility] [address] [place] [address]Woemtqau742.0 E9/JKgqyja099.0-500.0[facility] Comment on above:Performed By: #### [id number] #### [facility] [address] [place] [address]Ttlrhuex mean volume (Bld) [Entitic vol]8.7 fLNormal6.4-10.8 [facility] Medical CenterComment on above:Performed By: #### [id number] #### [facility] [address] [place] [address]SJH (Bld) [#/Vol]3.6 E12/LLow4.3-5.9[facility] Comment on above:Performed By: #### [id number] #### [facility] [address] [place] [address] 30248TOE size Nom (Bld)SEE MORPHOLOGYInvalid Interpretation Code St. [facility]S Medical CenterComment on above:Performed By: #### [id number] #### [facility] [address] [place] [address]THH corrected for nucl RBC Auto (Bld) [#/Vol]10.4 E9/LNormal 4.0-11.0[facility] Medical CenterComment on above:Performed By: #### [id number] #### [facility] [address] [place] [address]Ufaioipie Clinical Summaryon 11-05-0479Bkcowjnxr Clinical SummaryInpatient Clinical Summary [address] [address] Clinical Summary Person Information: Name: MYRA PICKARD SR Age: 58 Years : 1965 Sex: Male PCP: TERESA LYNCH DO Marital Status: Race: White Ethnicity: Non- or Language: Vietnamese Visit Id: Visit Reason: I70.261 Speciality: Acuity: Enc Type: Ambulatory/Same Day Surgery Med Service: Surgery Arrival: 01/08/2024 11:49:03 Discharge: Dispo Type: Address: [address] [place] [address] [address] [facility] [id number] Provider Notes: Diagnosis: Problems Active Gross hematuria [...] Follow up: With: Address: When: Mike Montes [address] [place], [place] [id number] Business (1) Comments: Call for followup appointment Type Location Start [facility] Office Visit [facility] Aurelio 02/12/2024 1:15 PM 02/12/2024 1:30 PM Confirmed Patient Education Information: CV - Cardiovascular PCI Discharge Instructions (CUSTOM)[facility] HospitalInpatient Patient Summaryon 12-21-9193Xwhaibgmo Patient Summary Inpatient Patient Summary [address] [address] Patient Discharge Instructions PERSON INFORMATION [...] Follow up: With: Address: When: Mike Montes [address] [place], [place] [id number] [facility] (1) Comments: Call for followup appointment In the event that this physician does not participate in your insurance network, please consult with your insurance company to find a nearby participating provider. Type Location Start [facility] Office Visit [facility] 02/12/2024 1:15 PM 02/12/2024 1:30 PM [...] 1 Capsules By (more content not included)... [facility] HospitalInterdisciplinary Note - Nursingon 01-08-2024 Interdisciplinary Note [...] with and covered with cast padding and KATHERYN.[facility] Mercy HospitaleGFRon 45-09-7363bXDS31 mL/min/1.73 m2Low >=[address] [place], [place] [address]Comment on above:Order Comment: Order added by Discern Expert.Performed By: #### [id number] #### [facility] [address], [place] [address]Izbeutlhrxj in LDL Calc [Mass/Vol]on 70-04-6504Wkjqykfexys in LDL [Mass/Vol]47.0 mg/dLGalion HospitalComment on above:<100 mg/dl UOBQWFH996-804 mg/dl NEAR OR ABOVE JOFBLCK800-528 mg/dl BORDERLINE UIWE565-151 mg/dl HIGH>190 mg/dl VERY HIGHCholesterol in VLDL Calc [Mass/Vol]on 32-14-1616Qkgvlfanqkw in VLDL [Mass/Vol]54.0 mg/dLGalion HospitalErythrocyte distribution width Auto (RBC) [Ratio]on 86-42-2410Agktovojjxd distribution width (RBC) [Ratio]15.9 %High11.0-15.0[facility] HospitalEstimated glomerular filtration rate (GFR) non- Americanon 39-44-4082NSA/1.73 sq M.predicted among non-blacks MDRD (S/P/Bld) [Vol rate/Area]31 mL/min/{1.73_m2}Low>=60Galion HospitalGlobulin Calc (S) [Mass/Vol]on 88-14-4507Fnavnnve (S) [Mass/Vol]3.9 g/dLGalion HospitalGlucose mean value [Mass/volume] in Blood Estimated from glycated hemoglobinon 33-66-9410Ddthtat glucose Estimated from glycated hemoglobin (Bld) [Mass/Vol]163 mg/dLGalion HospitalHematocrit Auto (Bld) [Volume fraction]on 81-70-2142Antxlwejrj (Bld) [Volume fraction]25.6 %Low42.0-54.0Galion HospitalHemoglobin [Mass/volume] in Blood on 23-61-1100Ggkdkdhfdv (Bld) [Mass/Vol]8.0 g/dLLow14.0-18.0Galion HospitalIron binding capacity [Mass/volume] in Serum or Plasmaon 48-66-5833Xvxb binding capacity [Mass/Vol]286.0 ug/dL250.0-450.0Galion HospitalIron saturation [Mass Fraction] in Serum or Plasmaon 80-01-0406Iuli saturation [Mass fraction]2.8 %[facility] - Chemistry and Chemistry - challengeon 09-27-9515Lpgusxzcu (Vitamin B12) [Mass/Vol]156.0 pg/lZXqe006.0-986.0[facility] Ferritin [Mass/Vol]16.0 ng/mLLow26.0-388.0Gal[facility] HospitalIron [Mass/Vol]8.0 ug/dLLow65.0-175.0[facility] HospitalTransferrin [Mass/Vol]241 mg/fW766-166GcnacpxunGalion HospitalComment on above: Performed at: [facility] [address] [id number] Director: Uriel Borrero PhD, Phone: [phone] [Mass/Vol]2.4 g/dLLow 3.4-5.0[facility] HospitalALP [Catalytic activity/Vol]172 U/LHigh 46-116Gal[facility] HospitalALT [Catalytic activity/Vol]21 U/L16-63 [facility] HospitalAST [Catalytic activity/Vol]8 U/QLun17-83 [facility] HospitalBilirubin [Mass/Vol]0.2 mg/dL0.2-1.0[facility] HospitalCalcium [Mass/Vol]8.4 mg/dLLow8.5-10.1FOhioHealth Grant Medical CenterChloride [Moles/Vol]98 mmol/M68-042GrpztlnnmGalion HospitalCholesterol [Mass/Vol]127 mg/dL<=200[facility] Cholesterol in HDL [Mass/Vol]26 mg/iNZnw76-15VeertsgciGalion Hospital Comment on above:> or =60 mg/dl - LOW CARDIOVASCULAR RISK<40 mg/dl - HIGH CARDIOVASCULAR RISKCO2 [Moles/Vol]30.5 mmol/L21.0-32.0[facility] HospitalCreatinine [Mass/Vol]2.22 mg/dLHigh0.70-1.30Gal[facility] HospitalGFR/1.73 sq M.predicted MDRD (S/P/Bld) [Vol rate/Area]37 mL/min/{1.73_m2} Low>=60Galion HospitalGlucose [Mass/Vol]348 mg/nVFndr36-339 [facility] HospitalPotassium [Moles/Vol]3.9 mmol/L3.5-5.1FOhioHealth Grant Medical CenterProtein [Mass/Vol]6.3 g/dLLow6.4-8.2FMary Rutan Hospitalodium [Moles/Vol]137 mmol/P054-380XzyizoaugGalion HospitalTriglyceride [Mass/Vol]270 mg/dLHigh<=150[facility] TSH Qn3.218 m[IU]/L0.358-3.740Galion HospitalUrea nitrogen [Mass/Vol]21.0 mg/dLHigh7.0-18.0Galion HospitalUrea nitrogen/Creatinine [Mass ratio]9.5 mg/mgGalion Hospital Laboratory - Hematology and Cell countson 81-05-2574KbJ0l (Bld) [Mass fraction] 7.3 %High4.5-6.2FOhioHealth Grant Medical CenterComment on above:ADA RECOMMENDED LIMIT 4.0 - 6.0ADA THERAPEUTIC TARGET < 7.0ACTION SUGGESTED> 7.0 Leukocytes [#/volume] corrected for nucleated erythrocytes in Blood by Automated counon 26-71-7736QBK corrected for nucl RBC Auto (Bld) [#/Vol]8.1 10 3/uL 4.0-11.0The Bellevue HospitalH Auto (RBC) [Entitic mass]on 56-91-6025VOA (RBC) [Entitic mass]24.3 pgLow25.9-34.0[facility] HospitalMCHC Auto (RBC) [Mass/Vol]on 24-17-3701NPNM (RBC) [Mass/Vol]31.3 g/dL 29.9-35.2FOhioHealth Grant Medical CenterMCV Auto (RBC) [Entitic vol]on 60-71-9209JFH (RBC) [Entitic vol]77.8 fLLow80.0-94.0[facility] HospitalNo Panel Informationon 77-79-2975Obfwcp2.6 ng/mL>3.0[facility] HospitalComment on above:A serum folate concentration of less than 3.1 ng/mL isconsidered to represent clinical deficiency.Performed at: [employer] [id number] Director: Uriel Borrero PhD, Phone: [phone] ng/mL>3.0[facility]241 mg/vP460-557 [facility]156.0 pg/xGYqh239.0-986.0[facility]16.0 ng/mLLow26.0-388.0[facility]8.0 ug/dL Low65.0-175.0[facility] HospitalTroponin I High Sensitivity5.8 pg/mL4.0-76.1FOhioHealth Grant Medical CenterComment on above:CUT-OFF POINTS HAVE BEEN [...] IN CONJUNCTIONWITH OTHER DIAGNOSTIC AND CLINICAL INFORMATION.5.8 pg/mL4.0-76.1FOhioHealth Grant Medical Center3.218 u[iU]/mL 0.358-3.740[facility]7.3 %High4.5-6.2FOhioHealth Grant Medical Center127 mg/dL<=200[facility]26 mg/eSOkd30-78 [facility]2.4 g/dLLow3.4-5.0[facility]172 U/MWcix54-569KrkireirfGalion Hospital270 mg/dLHigh<=150 [facility]21 U/S71-46WblkgjsdpGalion Hospital8 U/HQyj59-66EoogywljcGalion Hospital9.5FOhioHealth Grant Medical Center 21.0 mg/dLHigh7.0-18.0[facility]8.4 mg/dLLow8.5-10.1 [facility]98 mmol/S46-026PpqgfojrsGalion Hospital30.5 mmol/L21.0-32.0[facility]2.22 mg/dLHigh 0.70-1.30[facility]37Low>=60[facility]348 mg/kCAewd50-746VqnvycbkbGalion Hospital3.9 mmol/L3.5-5.1 [facility]137 mmol/M655-850NeazemvobGalion Hospital0.2 mg/dL0.2-1.0[facility]6.3 g/dLLow6.4-8.2 [facility] HospitalPlatelet mean volume Auto (Bld) [Entitic vol]on 42-07-2829Wylvwoap mean volume (Bld) [Entitic vol]10.4 fL9.5-13.5FOhioHealth Grant Medical CenterPlatelets Auto (Bld) [#/Vol]on 91-12-6238Eggwbwthf (Bld) [#/Vol]297 10 3/oQ866-665NcmvrdffrGalion HospitalRBC Auto (Bld) [#/Vol] on 22-76-3347RJS (Bld) [#/Vol]3.29 10 6/uLLow4.70-6.10[facility] Medical Centererum or plasma albumin/globulin mass ratioon 11-16-6828Cxlgyxj/Globulin [Mass ratio]0.6 {ratio}[facility] Medical Centererum or plasma anion gap determinationon 18-76-5821Yawmg gap [Moles/Vol]12.4 mmol/LFMary Rutan Hospitalerum or plasma total cholesterol/high density lipoprotein (HDL) cholesterol mass stone 14-37-7149Rsbdsurfbne.total/Cholesterol in HDL [Mass ratio]4.9 {ratio}[facility] HospitalComment on above:3.3 - 4.4 LOW RISK4.4 - 7.1 AVERAGE RISK7.1 - 11.0 MODERATE RISK>11.0 HIGH RISKBasophils Auto (Bld) [#/Vol]on 71-74-4244Ggokmfmfj (Bld) [#/Vol]0.1 10 3/uL0.0-0.1FOhioHealth Grant Medical CenterBasophils/100 WBC Auto (Bld)on 96-40-2993Lsvavgubo/100 WBC (Bld)0.7 %0.2-2.0[facility] HospitalEosinophils/100 WBC Auto (Bld)on 36-52-1695Ddkjkgqmhro/100 WBC (Bld)2.3 %0.9-7.0[facility] HospitalErythrocyte distribution width Auto (RBC) [Ratio]on 12-30-2023 Erythrocyte distribution width (RBC) [Ratio]15.9 %High11.0-15.0[facility] HospitalEstimated glomerular filtration rate (GFR) non- Americanon 67-56-6700GIP/1.73 sq M.predicted among non-blacks MDRD (S/P/Bld) [Vol rate/Area]30 mL/min/{1.73_m2}Low>=60[facility] Hematocrit Auto (Bld) [Volume fraction]on 17-09-8557Nfjyzxlufa (Bld) [Volume fraction]27.1 %Low42.0-54.0[facility] HospitalHemoglobin [Mass/volume] in Bloodon 78-26-7326Ettutyapro (Bld) [Mass/Vol]8.5 g/dLLow 14.0-18.0[facility] HospitalLaboratory - Chemistry and Chemistry - challengeon 72-50-5556Keqeakl [Mass/Vol]9.2 mg/dL8.5-10.1FOhioHealth Grant Medical CenterChloride [Moles/Vol]95 mmol/VIsf48-787TjdjjmgdrGalion HospitalCO2 [Moles/Vol]27.2 mmol/L21.0-32.0[facility] Creatinine [Mass/Vol]2.23 mg/dLHigh0.70-1.30[facility] GFR/1.73 sq M.predicted MDRD (S/P/Bld) [Vol rate/Area]37 mL/min/{1.73_m2}Low>=60 [facility] HospitalGlucose [Mass/Vol]193 mg/xKQnkz97-805VseakykmjGalion HospitalPotassium [Moles/Vol]3.6 mmol/L3.5-5.1FMary Rutan Hospitalodium [Moles/Vol]132 mmol/UShc520-741GrbrtprepGalion HospitalUrea nitrogen [Mass/Vol]22.0 mg/dLHigh7.0-18.0[facility] HospitalUrea nitrogen/Creatinine [Mass ratio]9.9 mg/mgGalion HospitalLaboratory - Hematology and Cell countson 49-01-1498Lqnmfpbs granulocytes/100 WBC (Bld)0.7 %High0.0-0.5FOhioHealth Grant Medical Center Leukocytes [#/volume] corrected for nucleated erythrocytes in Blood by Automated counon 20-91-0970GTW corrected for nucl RBC Auto (Bld) [#/Vol]10.7 10 3/uL 4.0-11.0[facility] HospitalLymphocytes Auto (Bld) [#/Vol]on 44-02-6551Udlfjdfzrms (Bld) [#/Vol]2.3 10 3/uL1.2-3.8[facility] HospitalLymphocytes/100 WBC Auto (Bld)on 58-07-7059Quclpotyefg/100 WBC (Bld)21.5 % 20.5-60.0The Bellevue HospitalH Auto (RBC) [Entitic mass]on 42-41-9399IZV (RBC) [Entitic mass]24.4 pgLow25.9-34.0[facility] HospitalMCHC Auto (RBC) [Mass/Vol]on 40-78-3973HXCC (RBC) [Mass/Vol]31.4 g/dL 29.9-35.2FOhioHealth Grant Medical CenterMCV Auto (RBC) [Entitic vol]on 62-90-4257TXU (RBC) [Entitic vol]77.7 fLLow80.0-94.0[facility] HospitalMonocytes Auto (Bld) [#/Vol]on 14-70-4552Urzgfxrny (Bld) [#/Vol]0.9 10 3/uLHigh0.3-0.8Galion HospitalMonocytes/100 WBC Auto (Bld)on 03-62-7448Tishnzjau/100 WBC (Bld)8.4 %1.7-12.0[facility] Neutrophils Auto (Bld) [#/Vol]on 83-34-1470Rikopomohml (Bld) [#/Vol]7.1 10 3/uL High1.4-6.5FOhioHealth Grant Medical CenterNeutrophils/100 WBC Auto (Bld)on 22-13-5258Mrggckkqofu/100 WBC (Bld)66.4 %43.0-75.0[facility] HospitalNo Panel Informationon 95-62-1727Zgfywgsi I High Sensitivity5.7 pg/mL 4.0-76.1FOhioHealth Grant Medical CenterComment on above:CUT-OFF POINTS HAVE BEEN [...] CONJUNCTIONWITH OTHER DIAGNOSTIC AND CLINICAL INFORMATION.5.7 pg/mL4.0-76.1 [facility] HospitalEosinophils # (Auto)0.3 10 3/uL0.0-0.7FOhioHealth Grant Medical CenterImmature Granulocyte # (Auto)0.07 10 3/uLHigh0.00-0.03 [facility]9.9[facility]22.0 mg/dL High7.0-18.0[facility]0.3 10 3/uL0.0-0.7FOhioHealth Grant Medical Center9.2 mg/dL8.5-10.1FOhioHealth Grant Medical Center95 mmol/CSfq46-204ZdebaobwkGalion Hospital27.2 mmol/L21.0-32.0[facility]2.23 mg/dLHigh0.70-1.30[facility] 0.07 10 3/uLHigh0.00-0.03[facility]37Low>=60[facility]0.7 %High0.0-0.5FOhioHealth Grant Medical Center193 mg/bGPsxn43-705PriiznhoeGalion Hospital3.6 mmol/L3.5-5.1FOhioHealth Grant Medical Center132 mmol/EAys748-415MdnritisqGalion Hospital Platelet mean volume Auto (Bld) [Entitic vol]on 25-17-4013Xglnahil mean volume (Bld) [Entitic vol]10.4 fL9.5-13.5FOhioHealth Grant Medical CenterPlatelets Auto (Bld) [#/Vol]on 42-34-5516Blmxpywhn (Bld) [#/Vol]368 10 3/rN645-281 [facility] HospitalRBC Auto (Bld) [#/Vol]on 07-66-2007DIX (Bld) [#/Vol]3.49 10 6/uLLow4.70-6.10[facility] Centererum or plasma anion gap determinationon 54-54-3174Ttrzx gap [Moles/Vol]13.4 mmol/LFOhioHealth Grant Medical CenterBasophils Auto (Bld) [#/Vol]on 22-23-4738Oebnxadtb (Bld) [#/Vol]0.1 10 3/uL0.0-0.1FOhioHealth Grant Medical CenterBasophils/100 WBC Auto (Bld)on 60-11-9381Emmleqnju/100 WBC (Bld)0.4 %0.2-2.0[facility] HospitalEosinophils/100 WBC Auto (Bld)on 88-94-1819Qlgxyraxnmr/100 WBC (Bld)1.0 % 0.9-7.0[facility] HospitalErythrocyte distribution width Auto (RBC) [Ratio]on 48-66-1572Zrtdhmntzkf distribution width (RBC) [Ratio]16.4 %High 11.0-15.0[facility] HospitalEstimated glomerular filtration rate (GFR) non- Americanon 44-92-9121EPB/1.73 sq M.predicted among non-blacks MDRD (S/P/Bld) [Vol rate/Area]37 mL/min/{1.73_m2}Low>=60[facility] HospitalGlobulin Calc (S) [Mass/Vol]on 25-97-1957Jchhlsur (S) [Mass/Vol] 3.3 g/dLGalion HospitalHematocrit Auto (Bld) [Volume fraction] on 53-58-0474Plvgghmdws (Bld) [Volume fraction]23.6 %Low42.0-54.0[facility] HospitalComment on above:RESULTS CALLED TO JOHNNY BOUDREAUX RN Hemoglobin [Mass/volume] in Bloodon 25-29-7205Lplmbaxyrq (Bld) [Mass/Vol]7.1 g/dLLow14.0-18.0[facility] HospitalLaboratory - Chemistry and Chemistry - challengeon 84-45-3384Wshssvt [Mass/Vol]2.2 g/dLLow3.4-5.0[facility] HospitalALP [Catalytic activity/Vol]127 U/JCggm30-492NoiokzeclGalion HospitalALT [Catalytic activity/Vol]13 U/PJjo22-53JipkobfrhGalion HospitalAST [Catalytic activity/Vol]10 U/LHys19-49DnfwglwjlGalion HospitalBilirubin [Mass/Vol]0.2 mg/dL0.2-1.0[facility] HospitalCalcium [Mass/Vol]7.4 mg/dLLow8.5-10.1FOhioHealth Grant Medical CenterChloride [Moles/Vol]103 mmol/Y68-945FsvzfbmxfGalion HospitalCO2 [Moles/Vol]23.4 mmol/L21.0-32.0[facility] HospitalCreatinine [Mass/Vol]1.88 mg/dLHigh0.70-1.30[facility] HospitalGFR/1.73 sq M.predicted MDRD (S/P/Bld) [Vol rate/Area]45 mL/min/{1.73_m2}Low>=60[facility] HospitalGlucose [Mass/Vol]357 mg/cZGcsg58-180LinuiazpsGalion HospitalMagnesium [Mass/Vol]1.5 mg/dLLow1.8-2.4FOhioHealth Grant Medical CenterPotassium [Moles/Vol]4.4 mmol/L3.5-5.1FOhioHealth Grant Medical Center Protein [Mass/Vol]5.5 g/dLLow6.4-8.2FMary Rutan Hospitalodium [Moles/Vol]136 mmol/X139-310VtdzfmymwGalion HospitalUrea nitrogen [Mass/Vol]30.0 mg/dLHigh7.0-18.0[facility] HospitalUrea nitrogen/Creatinine [Mass ratio]16.0 mg/mgGalion Hospital Laboratory - Hematology and Cell countson 80-04-4154Ztdlhxsb granulocytes/100 WBC (Bld)0.9 %High0.0-0.5FOhioHealth Grant Medical CenterLeukocytes [#/volume] corrected for nucleated erythrocytes in Blood by Automated counon 60-06-4382OWA corrected for nucl RBC Auto (Bld) [#/Vol]13.3 10 3/uLHigh4.0-11.0[facility] HospitalLymphocytes Auto (Bld) [#/Vol]on 90-06-4742Ubwewzorzcz (Bld) [#/Vol]2.1 10 3/uL1.2-3.8[facility] HospitalLymphocytes/100 WBC Auto (Bld)on 84-67-8450Vunvuwlddfh/100 WBC (Bld)15.7 %Low20.5-60.0[facility] HospitalH Auto (RBC) [Entitic mass]on 87-69-1569LVI (RBC) [Entitic mass]25.0 pgLow25.9-34.0[facility] HospitalMCHC Auto (RBC) [Mass/Vol]on 91-61-3557FJXN (RBC) [Mass/Vol]30.1 g/dL29.9-35.2FOhioHealth Grant Medical CenterMCV Auto (RBC) [Entitic vol]on 79-83-7383XZK (RBC) [Entitic vol]83.1 fL80.0-94.0[facility] HospitalMonocytes Auto (Bld) [#/Vol]on 90-49-3950Raudiywso (Bld) [#/Vol]0.6 10 3/uL0.3-0.8[facility] HospitalMonocytes/100 WBC Auto (Bld)on 78-86-0742Niloujaht/100 WBC (Bld)4.7 %1.7-12.0[facility] HospitalNeutrophils Auto (Bld) [#/Vol]on 70-74-9977Kegibohdflx (Bld) [#/Vol]10.3 10 3/uLHigh1.4-6.5FOhioHealth Grant Medical CenterNeutrophils/100 WBC Auto (Bld)on 12-23-2023 Neutrophils/100 WBC (Bld)77.3 %High43.0-75.0[facility] HospitalNo Panel Informationon 37-61-7621Ogcunoxavga # (Auto)0.1 10 3/uL0.0-0.7FOhioHealth Grant Medical CenterImmature Granulocyte # (Auto)0.12 10 3/uLHigh0.00-0.03 [facility]1.5 mg/dLLow1.8-2.4FOhioHealth Grant Medical Center2.2 g/dLLow3.4-5.0[facility]0.1 10 3/uL0.0-0.7 [facility]127 U/COrnz83-930OwefsjhmeGalion Hospital13 U/WJxd78-52KkhqnjmarGalion Hospital10 U/IAkh13-33JyatongpmGalion Hospital16.0[facility]0.12 10 3/uLHigh 0.00-0.03[facility]30.0 mg/dLHigh7.0-18.0[facility]0.9 %High0.0-0.5FOhioHealth Grant Medical Center7.4 mg/dLLow8.5-10.1FOhioHealth Grant Medical Center103 mmol/V81-076JzoanhwudGalion Hospital23.4 mmol/L21.0-32.0[facility]1.88 mg/dLHigh0.70-1.30[facility]45Low>=60[facility]357 mg/dRHmwr99-924QldkqpzlqGalion Hospital4.4 mmol/L 3.5-5.1FOhioHealth Grant [facility] mmol/X634-516OcoxuarflGalion Hospital0.2 mg/dL0.2-1.0[facility]5.5 g/dLLow 6.4-8.2FOhioHealth Grant Medical CenterPlatelet mean volume Auto (Bld) [Entitic vol]on 16-49-5959Bgdxrswk mean volume (Bld) [Entitic vol]10.3 fL9.5-13.5 [facility] HospitalPlatelets Auto (Bld) [#/Vol]on 12-23-2023 Platelets (Bld) [#/Vol]373 10 3/qO473-704SxtlxrbquGalion HospitalRBC Auto (Bld) [#/Vol]on 47-15-8002TSU (Bld) [#/Vol]2.84 10 6/uLLow4.70-6.10 [facility] Centererum or plasma albumin/globulin mass ratioon 91-30-1956Aymvqrc/Globulin [Mass ratio]0.7 {ratio}[facility] Centererum or plasma anion gap determinationon 18-33-2536Paswk gap [Moles/Vol] 14.0 mmol/LFOhioHealth Grant Medical CenterBasophils Auto (Bld) [#/Vol]on 20-88-5431Ivqeyiamn (Bld) [#/Vol]0.0 10 3/uL0.0-0.1FOhioHealth Grant Medical CenterBasophils/100 WBC Auto (Bld)on 56-87-4603Abkckexsw/100 WBC (Bld)0.2 % 0.2-2.0[facility] HospitalEosinophils/100 WBC Auto (Bld)on 92-68-3803Gwiuwzzajen/100 WBC (Bld)0.1 %Low0.9-7.0[facility] HospitalErythrocyte distribution width Auto (RBC) [Ratio]on 25-28-6534Lvzbbhhzjxj distribution width (RBC) [Ratio]16.5 %High11.0-15.0[facility] HospitalEstimated glomerular filtration rate (GFR) non- Americanon 94-33-2237VBI/1.73 sq M.predicted among non-blacks MDRD (S/P/Bld) [Vol rate/Area]23 mL/min/{1.73_m2}Low>=60[facility] HospitalGlobulin Calc (S) [Mass/Vol]on 92-06-4620Ufljssuj (S) [Mass/Vol]3.8 g/dLGalion HospitalHematocrit Auto (Bld) [Volume fraction]on 12-22-2023 Hematocrit (Bld) [Volume fraction]25.4 %Low42.0-54.0[facility] HospitalHemoglobin [Mass/volume] in Bloodon 01-84-1165Skcrlbwdhg (Bld) [Mass/Vol] 7.6 g/dLLow14.0-18.0[facility] HospitalLaboratory - Chemistry and Chemistry - challengeon 10-72-0898Ntilipqnd Ql (U)NegativeNEGATIVEGalion HospitalGlucose (U) [Mass/Vol]mg/dLAbnormalNEGATIVEGalion HospitalKetones Ql (U)NegativeNEGATIVEGalion HospitalpH (U)6.5 [pH]5.0-9.0[facility] Centerpecific gravity (U) [Rel density]<=1.369Tmcffhcm1.005-1.025[facility] Urobilinogen Qn (U)0.2 {Brendan'U}/dL0.2-1.0[facility] Calcium [Mass/Vol]7.2 mg/dLLow8.5-10.1FOhioHealth Grant Medical CenterChloride [Moles/Vol]95 mmol/NMot47-328XemikasjuGalion HospitalCO2 [Moles/Vol] 21.7 mmol/L21.0-32.0[facility] HospitalCreatinine [Mass/Vol]2.80 mg/dLHigh0.70-1.30[facility] HospitalGFR/1.73 sq M.predicted MDRD (S/P/Bld) [Vol rate/Area]28 mL/min/{1.73_m2}Low>=60[facility] HospitalGlucose [Mass/Vol]683 mg/xCLbqz60-109BjlviwongGalion Hospital Comment on above:RESULTS CALLED TO Sai Pickard, RNPotassium [Moles/Vol] 4.8 mmol/L3.5-5.1FMary Rutan Hospitalodium [Moles/Vol]129 mmol/L Bsn514-546NychzeqeqGalion HospitalUrea nitrogen [Mass/Vol]27.0 mg/dL High7.0-18.0[facility] HospitalUrea nitrogen/Creatinine [Mass ratio]9.6 mg/mgGalion HospitalAlbumin [Mass/Vol]2.3 g/dLLow 3.4-5.0[facility] HospitalALP [Catalytic activity/Vol]143 U/LHigh 46-116Gal[facility] HospitalALT [Catalytic activity/Vol]15 U/LLow 16-63Gal[facility] HospitalAST [Catalytic activity/Vol]9 U/CIhm10-70 [facility] HospitalBilirubin [Mass/Vol]0.2 mg/dL0.2-1.0[facility] HospitalMagnesium [Mass/Vol]0.9 mg/dLLow1.8-2.4FOhioHealth Grant Medical CenterComment on above:RESULTS CALLED TO ANY SANTIAGO RNNatriuretic peptide B (Bld) [Mass/Vol]322.0 pg/mL<=900.0[facility] Protein [Mass/Vol]6.1 g/dLLow6.4-8.2FOhioHealth Grant Medical CenterLaboratory - Hematology and Cell countson 41-90-1638Elngxjrj granulocytes/100 WBC (Bld)0.9 %High0.0-0.5FOhioHealth Grant Medical CenterLaboratory - Specimen informationon 72-09-2486Rlihfjfski (U)CLEARCLEARFOhioHealth Grant Medical CenterColor (U)LT. YELLOWYELLOWGalion HospitalLaboratory - Urinalysison 50-56-0457Lzbzjffap esterase Test strip Ql (U)NegativeNEGATIVEGalion HospitalMucus Ql (Urine sed)NONE SEENNONE SEENGalion HospitalNitrite Ql (U)NegativeNEGATIVEGalion HospitalProtein Ql (U)NegativeNEG/TRACEGalion HospitalLeukocytes [#/volume] corrected for nucleated erythrocytes in Blood by Automated counon 52-61-1832NQY corrected for nucl RBC Auto (Bld) [#/Vol]11.7 10 3/uLHigh4.0-11.0[facility] HospitalLymphocytes Auto (Bld) [#/Vol]on 70-71-8497Jcfgixerayx (Bld) [#/Vol]0.9 10 3/uLLow1.2-3.8[facility] Lymphocytes/100 WBC Auto (Bld)on 92-42-9805Fdfngvlqkzd/100 WBC (Bld)7.6 %Low 20.5-60.0[facility] HospitalH Auto (RBC) [Entitic mass]on 81-07-8537KUQ (RBC) [Entitic mass]24.4 pgLow25.9-34.0[facility] HospitalMCHC Auto (RBC) [Mass/Vol]on 04-35-3217QPNU (RBC) [Mass/Vol]29.9 g/dL 29.9-35.2FOhioHealth Grant Medical CenterMCV Auto (RBC) [Entitic vol]on 21-12-9503DBS (RBC) [Entitic vol]81.7 fL80.0-94.0[facility] HospitalMonocytes Auto (Bld) [#/Vol]on 49-29-5760Olcyggkcf (Bld) [#/Vol]0.2 10 3/uLLow0.3-0.8[facility] HospitalMonocytes/100 WBC Auto (Bld)on 07-50-2086Qiagvhvzn/100 WBC (Bld)1.4 %Low1.7-12.0[facility] HospitalNeutrophils Auto (Bld) [#/Vol]on 97-50-0907Wpbxnoxykgp (Bld) [#/Vol]10.5 10 3/uLHigh1.4-6.5FOhioHealth Grant Medical CenterNeutrophils/100 WBC Auto (Bld)on 43-31-9018Yflmymmrauj/100 WBC (Bld)89.8 %High43.0-75.0[facility] HospitalNo Panel Informationon 52-87-8730Tphzc BacteriaNONE SEEN #/HPF NONE SEENGalion HospitalUrine Occult BloodNegativeNEGATIVE [facility] HospitalUrine Other CastsNONE SEEN #/LPFNONE SEEN [facility] HospitalUrine Other CrystalsNone Seen #/HPFNone Seen [facility] HospitalUrine RBC0-2 #/HPF0-2FOhioHealth Grant Medical CenterUrine Squamous Epithelial CellsNONE SEEN #/LPFNONE/[facility] HospitalUrine WBC0-2 #/HPFAbnormalNONE [facility]NONE SEEN #/LPFNONE/[facility] HospitalNone Seen #/HPF NONE [facility] HospitalNegativeNEG/TRACEGalion HospitalCLEARCLEARGalion HospitalLT. YELLOWYELLOW [facility]>=1000 mg/dLAbnormalNEGATIVEGalion HospitalNONE SEENNONE [facility]6.55.0-9.0 [facility]0-2 #/HPFAbnormalNONE [facility]<=1.021Qshxljsi3.005-1.025[facility]0.2 EU/dL0.2-1.0[facility]9.6FOhioHealth Grant Medical Center27.0 mg/dLHigh7.0-18.0[facility]7.2 mg/dLLow 8.5-10.1FOhioHealth Grant Medical Center95 mmol/WDhh23-090AmcafatidGalion Hospital21.7 mmol/L21.0-32.0[facility]2.80 mg/dL High0.70-1.30[facility]28Low>=60[facility]683 mg/kDHazn07-030PheieheikGalion Hospital4.8 mmol/L 3.5-5.1FOhioHealth Grant Medical Center129 mmol/AAdk055-530IahkcwifhGalion HospitalEosinophils # (Auto)0.0 10 3/uL0.0-0.7FOhioHealth Grant Medical CenterImmature Granulocyte # (Auto)0.11 10 3/uLHigh0.00-0.03[facility] HospitalPhosphorus Level2.7 mg/dL2.6-4.7FOhioHealth Grant Medical Center 322.0 pg/mL<=900.0[facility]0.9 mg/dLLow1.8-2.4FOhioHealth Grant Medical Center2.7 mg/dL2.6-4.7FOhioHealth Grant Medical Center0.0 10 3/uL0.0-0.7FOhioHealth Grant Medical Center2.3 g/dLLow3.4-5.0[facility]143 U/XKxeq55-187RgagmfonjGalion Hospital15 U/VQhs93-56 [facility]9 U/UHlr62-21HjgdoinwvGalion Hospital 0.11 10 3/uLHigh0.00-0.03[facility]0.9 %High0.0-0.5 [facility]0.2 mg/dL0.2-1.0[facility]6.1 g/dLLow6.4-8.2FOhioHealth Grant Medical CenterPlatelet mean volume Auto (Bld) [Entitic vol]on 59-27-1693Uwgkwljq mean volume (Bld) [Entitic vol] 10.5 fL9.5-13.5FOhioHealth Grant Medical CenterPlatelets Auto (Bld) [#/Vol]on 55-93-1626Yidpniknd (Bld) [#/Vol]400 10 3/pE098-298HqpilzzrpGalion HospitalRBC Auto (Bld) [#/Vol]on 73-86-0173DFO (Bld) [#/Vol]3.11 10 6/uLLow 4.70-6.10[facility] Centererum or plasma albumin/globulin mass ratioon 39-49-1112Dvowokr/Globulin [Mass ratio]0.6 {ratio}[facility] Centererum or plasma anion gap determinationon 10-83-6698Enodu gap [Moles/Vol]17.1 mmol/LFOhioHealth Grant Medical CenterActivated partial thromboplastin time (aPTT) in platelet poor plasma by coagulation aon 12-21-2023 aPTT Coag (PPP) [Time]26.6 s22.3-36.2FOhioHealth Grant Medical CenterBasophils Auto (Bld) [#/Vol]on 04-81-0715Gyhcllyrk (Bld) [#/Vol]0.1 10 3/uL0.0-0.1 [facility] HospitalBasophils/100 WBC Auto (Bld)on 12-21-2023 Basophils/100 WBC (Bld)0.8 %0.2-2.0[facility] Eosinophils/100 WBC Auto (Bld)on 26-49-8773Gyalnjekrgw/100 WBC (Bld)4.2 %0.9-7.0 [facility] HospitalErythrocyte distribution width Auto (RBC) [Ratio]on 02-08-4134Wmpmlejnrar distribution width (RBC) [Ratio]16.6 %High 11.0-15.0[facility] HospitalEstimated glomerular filtration rate (GFR) non- Americanon 83-38-3640KLD/1.73 sq M.predicted among non-blacks MDRD (S/P/Bld) [Vol rate/Area]23 mL/min/{1.73_m2}Low>=60[facility] HospitalGlobulin Calc (S) [Mass/Vol]on 73-19-6301Lgrbujoa (S) [Mass/Vol] 4.0 g/dLGalion HospitalHematocrit Auto (Bld) [Volume fraction] on 96-29-7670Dvblazugjg (Bld) [Volume fraction]28.2 %Low42.0-54.0[facility] HospitalHemoglobin [Mass/volume] in Bloodon 08-29-9173Qaernepdut (Bld) [Mass/Vol]8.6 g/dLLow14.0-18.0[facility] HospitalINR in Platelet poor plasma by Coagulation assayon 13-16-3230JAW Coag (PPP) [Relative time]1.05 {INR}[facility] HospitalComment on above:DESIRED INR:2.0-3.0 CONDITIONS NOT LISTED BELOW2.5-3.5 FOR PROSTHETIC HEART VALVE REPLACEMENT2.5-3.5 RECURRENT THROMBOSISLaboratory - Chemistry and Chemistry - challengeon 18-36-9421Ftztkqa [Mass/Vol]2.8 g/dLLow3.4-5.0[facility] HospitalALP [Catalytic activity/Vol]132 U/MFedk99-245DevurlhldGalion HospitalALT [Catalytic activity/Vol]13 U/DXno25-54WiauvudhhGalion HospitalAST [Catalytic activity/Vol]10 U/HYpg60-12TslleadtmGalion HospitalBilirubin [Mass/Vol]0.3 mg/dL0.2-1.0[facility] HospitalCalcium [Mass/Vol]7.8 mg/dLLow8.5-10.1FOhioHealth Grant Medical Center Chloride [Moles/Vol]99 mmol/M13-550FyjmpyyvrGalion HospitalCO2 [Moles/Vol]29.9 mmol/L21.0-32.0[facility] HospitalCreatinine [Mass/Vol]2.79 mg/dLHigh0.70-1.30[facility] HospitalGFR/1.73 sq M.predicted MDRD (S/P/Bld) [Vol rate/Area]29 mL/min/{1.73_m2}Low>=60[facility] HospitalGlucose [Mass/Vol]56 mg/tMFhk79-195MbwyowvcwGalion HospitalLactate [Moles/Vol]1.6 mmol/L0.4-2.0[facility] HospitalNatriuretic peptide B (Bld) [Mass/Vol]222.0 pg/mL<=900.0[facility] HospitalPotassium [Moles/Vol]3.3 mmol/LLow3.5-5.1FOhioHealth Grant Medical CenterProtein [Mass/Vol]6.8 g/dL6.4-8.2FOhioHealth Grant Medical Center Sodium [Moles/Vol]138 mmol/U264-226LaywxtydpGalion HospitalUrea nitrogen [Mass/Vol]29.0 mg/dLHigh7.0-18.0[facility] HospitalUrea nitrogen/Creatinine [Mass ratio]10.4 mg/mgGalion Hospital Laboratory - Hematology and Cell countson 18-07-7482Wfyzjesq granulocytes/100 WBC (Bld)1.0 %High0.0-0.5FOhioHealth Grant Medical CenterLeukocytes [#/volume] corrected for nucleated erythrocytes in Blood by Automated counon 15-53-0952EFO corrected for nucl RBC Auto (Bld) [#/Vol]12.6 10 3/uLHigh4.0-11.0[facility] HospitalLymphocytes Auto (Bld) [#/Vol]on 77-47-7185Llflccnrtzp (Bld) [#/Vol]3.4 10 3/uL1.2-3.8[facility] HospitalLymphocytes/100 WBC Auto (Bld)on 13-28-5372Jmmzlahvsbt/100 WBC (Bld)26.6 %20.5-60.0[facility] HospitalH Auto (RBC) [Entitic mass]on 11-66-7660PIH (RBC) [Entitic mass]24.7 pgLow25.9-34.0[facility] HospitalMCHC Auto (RBC) [Mass/Vol]on 98-42-2157FVOG (RBC) [Mass/Vol]30.5 g/dL29.9-35.2FWright-Patterson Medical CenterV Auto (RBC) [Entitic vol]on 73-64-2496LJR (RBC) [Entitic vol]81.0 fL80.0-94.0[facility] HospitalMonocytes Auto (Bld) [#/Vol]on 48-51-4216Fdtzzhvbn (Bld) [#/Vol]0.6 10 3/uL0.3-0.8[facility] HospitalMonocytes/100 WBC Auto (Bld)on 02-35-2053Mokjcwuao/100 WBC (Bld)4.9 %1.7-12.0[facility] HospitalNeutrophils Auto (Bld) [#/Vol]on 94-43-9608Uhupqrobmcl (Bld) [#/Vol]7.9 10 3/uLHigh1.4-6.5FOhioHealth Grant Medical CenterNeutrophils/100 WBC Auto (Bld)on 12-21-2023 Neutrophils/100 WBC (Bld)62.5 %43.0-75.0[facility] HospitalNo Panel Informationon 02-45-7906Hshuljyp I High Sensitivity5.1 pg/mL4.0-76.1 [facility] HospitalComment on above:CUT-OFF POINTS HAVE BEEN ESTABLISHED [...] CONJUNCTIONWITH OTHER DIAGNOSTIC AND CLINICAL INFORMATION.5.1 pg/mL4.0-76.1 [facility] HospitalEosinophils # (Auto)0.5 10 3/uL0.0-0.7FOhioHealth Grant Medical CenterImmature Granulocyte # (Auto)0.13 10 3/uLHigh0.00-0.03 [facility] HospitalVenous Blood Partial Pressure CO239.8 mm[Hg]Low 40.0-52.0[facility] HospitalVenous Blood pH7.884Kpyp9.330-7.430 [facility]222.0 pg/mL<=900.0[facility]1.6 mmol/L0.4-2.0[facility]39.8 mm[Hg]Low40.0-52.0 [facility]7.472Oyit3.330-7.430[facility]2.8 g/dLLow3.4-5.0[facility]0.5 10 3/uL0.0-0.7 [facility]132 U/SKdmd07-242SwkzrssndGalion Hospital13 U/ORzc86-61NbekhoyhpGalion Hospital10 U/PWoq96-37OakwtgbnnGalion Hospital10.4FOhioHealth Grant Medical Center0.13 10 3/uLHigh 0.00-0.03[facility]29.0 mg/dLHigh7.0-18.0[facility]1.0 %High0.0-0.5FOhioHealth Grant Medical Center7.8 mg/dLLow8.5-10.1FOhioHealth Grant Medical Center99 mmol/Y87-076NjmxveqysGalion Hospital29.9 mmol/L21.0-32.0[facility]2.79 mg/dLHigh0.70-1.30[facility]29Low>=60[facility]56 mg/jZKqf66-369HnvlhlmrtGalion Hospital3.3 mmol/LLow 3.5-5.1FOhioHealth Grant Medical Center138 mmol/U863-817WjalfmoxzGalion Hospital0.3 mg/dL0.2-1.0[facility]6.8 g/dL6.4-8.2 [facility] HospitalNo Panel InformationOrdered By: Марина Flores on 82-19-0282Cjgzf Culture 2FOhioHealth Grant Medical CenterBlood Culture 1 [facility] HospitalPlatelet mean volume Auto (Bld) [Entitic vol]on 04-57-0505Ranfmaua mean volume (Bld) [Entitic vol]10.2 fL9.5-13.5FOhioHealth Grant Medical CenterPlatelets Auto (Bld) [#/Vol]on 57-34-9251Hqgqjfkjm (Bld) [#/Vol]502 10 3/xGAlks713-392NhgirruxkGalion HospitalProthrombin time (PT)on 38-66-6939QY Coag (PPP) [Time]11.1 s9.0-11.6FOhioHealth Grant Medical CenterRBC Auto (Bld) [#/Vol]on 46-32-2142LGM (Bld) [#/Vol]3.48 10 6/uLLow 4.70-6.10[facility] Centererum or plasma albumin/globulin mass ratioon 80-04-0889Uigzbfs/Globulin [Mass ratio]0.7 {ratio}[facility] Centererum or plasma anion gap determinationon 83-24-3697Wjbvo gap [Moles/Vol]12.4 mmol/LFOhioHealth Grant Medical CenterLon 08-28-6354GQjndroNwn [facility] Physician GroupBasophils Auto (Bld) [#/Vol]on 42-52-5545Mupdjwdmf (Bld) [#/Vol]0.1 10 3/uL0.0-0.1FOhioHealth Grant Medical CenterBasophils/100 WBC Auto (Bld)on 89-05-1421Vknnjqljx/100 WBC (Bld)0.9 %0.2-2.0[facility] HospitalEosinophils/100 WBC Auto (Bld)on 43-84-7130Utpiflugnuu/100 WBC (Bld)2.6 %0.9-7.0[facility] HospitalErythrocyte distribution width Auto (RBC) [Ratio]on 92-75-1999Yrfnfkkhqnh distribution width (RBC) [Ratio]17.7 %High11.0-15.0[facility] HospitalEstimated glomerular filtration rate (GFR) non- Americanon 40-39-3694NKW/1.73 sq M.predicted among non- blacks MDRD (S/P/Bld) [Vol rate/Area]38 mL/min/{1.73_m2}Low>=60[facility] HospitalGlobulin Calc (S) [Mass/Vol]on 26-51-7320Cvuufnnh (S) [Mass/Vol]3.9 g/dLGalion HospitalHematocrit Auto (Bld) [Volume fraction]on 84-66-9355Vzdbepadkp (Bld) [Volume fraction]34.2 %Low42.0-54.0 [facility] HospitalHemoglobin [Mass/volume] in Bloodon 12-10-2023 Hemoglobin (Bld) [Mass/Vol]10.5 g/dLLow14.0-18.0[facility] HospitalLaboratory - Chemistry and Chemistry - challengeon 93-35-3659Vfmxqxb [Mass/Vol]2.8 g/dLLow3.4-5.0[facility] HospitalALP [Catalytic activity/Vol]119 U/DTeva32-145TdmpalwgxGalion HospitalALT [Catalytic activity/Vol]11 U/BJkl70-94EonwikwrxGalion HospitalAST [Catalytic activity/Vol]10 U/AJju97-47CxsvgeflqGalion HospitalBilirubin [Mass/Vol] 0.4 mg/dL0.2-1.0[facility] HospitalCalcium [Mass/Vol]8.4 mg/dLLow 8.5-10.1FOhioHealth Grant Medical CenterChloride [Moles/Vol]101 mmol/L98-107 [facility] HospitalCO2 [Moles/Vol]27.0 mmol/L21.0-32.0[facility] HospitalCreatinine [Mass/Vol]1.83 mg/dLHigh0.70-1.30[facility] HospitalGFR/1.73 sq M.predicted MDRD (S/P/Bld) [Vol rate/Area]46 mL/min/{1.73_m2}Low>=60[facility] HospitalGlucose [Mass/Vol]113 mg/aUEitu70-411JthcbzgivGalion HospitalPotassium [Moles/Vol]3.3 mmol/L Low3.5-5.1FOhioHealth Grant Medical CenterProtein [Mass/Vol]6.7 g/dL6.4-8.2 [facility] Centerodium [Moles/Vol]134 mmol/PDgh311-249TgtjcssdoGalion HospitalUrea nitrogen [Mass/Vol]21.0 mg/dLHigh7.0-18.0[facility] HospitalUrea nitrogen/Creatinine [Mass ratio]11.5 mg/mgGalion HospitalLaboratory - Hematology and Cell countson 12-10-2023 Immature granulocytes/100 WBC (Bld)0.3 %0.0-0.5FOhioHealth Grant Medical Center Leukocytes [#/volume] corrected for nucleated erythrocytes in Blood by Automated counon 03-84-0248HFD corrected for nucl RBC Auto (Bld) [#/Vol]9.8 10 3/uL 4.0-11.0[facility] HospitalLymphocytes Auto (Bld) [#/Vol]on 66-91-1894Krsitgvlupy (Bld) [#/Vol]1.5 10 3/uL1.2-3.8[facility] HospitalLymphocytes/100 WBC Auto (Bld)on 58-21-1081Heynovcfpvl/100 WBC (Bld)15.8 % Low20.5-60.0[facility] HospitalMCH Auto (RBC) [Entitic mass]on 15-35-2726MMY (RBC) [Entitic mass]25.1 pgLow25.9-34.0[facility] HospitalMCHC Auto (RBC) [Mass/Vol]on 34-80-6352MDLC (RBC) [Mass/Vol]30.7 g/dL 29.9-35.2FOhioHealth Grant Medical CenterMCV Auto (RBC) [Entitic vol]on 88-75-4873WMC (RBC) [Entitic vol]81.6 fL80.0-94.0[facility] HospitalMonocytes Auto (Bld) [#/Vol]on 25-45-0937Sngwxvhab (Bld) [#/Vol]1.2 10 3/uLHigh0.3-0.8[facility] HospitalMonocytes/100 WBC Auto (Bld)on 99-36-0598Lawnylksy/100 WBC (Bld)11.9 %1.7-12.0[facility] Neutrophils Auto (Bld) [#/Vol]on 27-55-1146Uvpaeghhmbv (Bld) [#/Vol]6.7 10 3/uL High1.4-6.5FOhioHealth Grant Medical CenterNeutrophils/100 WBC Auto (Bld)on 24-56-8871Zgufrpjelqa/100 WBC (Bld)68.5 %43.0-75.0[facility] HospitalNo Panel Informationon 78-78-9843Ajtmmhpvcwe # (Auto)0.3 10 3/uL0.0-0.7 [facility] HospitalImmature Granulocyte # (Auto)0.03 10 3/uL 0.00-0.03[facility]2.8 g/dLLow3.4-5.0[facility]0.3 10 3/uL0.0-0.7FOhioHealth Grant Medical Center119 U/LHigh 46-116[facility]11 U/NRec54-75XzzgaarlkGalion Hospital10 U/VYse86-74KmnakjivaGalion Hospital11.5FOhioHealth Grant Medical Center0.03 10 3/uL0.00-0.03[facility]21.0 mg/dL High7.0-18.0[facility]0.3 %0.0-0.5FOhioHealth Grant Medical Center8.4 mg/dLLow8.5-10.1FOhioHealth Grant Medical Center101 mmol/L 98-107[facility]27.0 mmol/L21.0-32.0[facility]1.83 mg/dLHigh0.70-1.30[facility]46Low>=60 [facility]113 mg/cYVckc68-331WhrrxcksgGalion Hospital3.3 mmol/LLow3.5-5.1FOhioHealth Grant Medical Center134 mmol/JRfh615-490 [facility]0.4 mg/dL0.2-1.0[facility]6.7 g/dL6.4-8.2FOhioHealth Grant Medical CenterPlatelet mean volume Auto (Bld) [Entitic vol]on 10-02-9303Xjewpyzu mean volume (Bld) [Entitic vol]10.2 fL 9.5-13.5FOhioHealth Grant Medical CenterPlatelets Auto (Bld) [#/Vol]on 96-16-6480Cjqpbdetu (Bld) [#/Vol]240 10 3/fM073-473HjehgckgkGalion HospitalRBC Auto (Bld) [#/Vol]on 73-61-5439AGP (Bld) [#/Vol]4.19 10 6/uLLow 4.70-6.10[facility] Centererum or plasma albumin/globulin mass ratioon 66-09-4319Rlkxrpr/Globulin [Mass ratio]0.7 {ratio}[facility] Centererum or plasma anion gap determinationon 50-87-4809Plgkl gap [Moles/Vol]9.3 mmol/LFOhioHealth Grant Medical CenterBasophils Auto (Bld) [#/Vol]on 51-01-4392Oxbrdxurs (Bld) [#/Vol]0.1 10 3/uL0.0-0.1FOhioHealth Grant Medical CenterBasophils/100 WBC Auto (Bld)on 82-35-6971Pvzutnpne/100 WBC (Bld) 1.0 %0.2-2.0[facility] HospitalEosinophils/100 WBC Auto (Bld)on 84-26-0098Wwxsqerofuy/100 WBC (Bld)1.6 %0.9-7.0[facility] Erythrocyte distribution width Auto (RBC) [Ratio]on 27-21-4889Nejgeskofpu distribution width (RBC) [Ratio]17.7 %High11.0-15.0[facility] HospitalEstimated glomerular filtration rate (GFR) non- Americanon 31-41-1461LHK/1.73 sq M.predicted among non-blacks MDRD (S/P/Bld) [Vol rate/Area]31 mL/min/{1.73_m2}Low>=60[facility] HospitalFibrin D- dimer [Presence] in Platelet poor plasma by Latex agglutinationon 12-09-2023 Fibrin D-dimer LA Ql (PPP)3.76 mg/L FEUHigh<=0.59[facility] HospitalComment on above:RESULTS CALLED TO in D-Dimer [...] therapy, stress, and generalizedhospitalization.Globulin Calc (S) [Mass/Vol]on 07-63-0497Ejpoynod (S) [Mass/Vol]4.6 g/dLGalion HospitalHematocrit Auto (Bld) [Volume fraction]on 92-75-4974Uzamkrmceq (Bld) [Volume fraction]39.2 %Low 42.0-54.0[facility] HospitalHemoglobin [Mass/volume] in Bloodon 59-66-5268Nyyuafmtqg (Bld) [Mass/Vol]12.2 g/dLLow14.0-18.0[facility] HospitalLaboratory - Chemistry and Chemistry - challengeon 12-09-2023 Lactate [Moles/Vol]2.9 mmol/LHigh0.4-2.0[facility] HospitalComment on above:RESULTS CALLED TO MICKY SHARPE RNBilirubin Ql (U)NegativeNEGATIVE [facility] HospitalGlucose (U) [Mass/Vol]500 mg/dLAbnormalNEGATIVE [facility] HospitalKetones Ql (U)NegativeNEGATIVEGalion HospitalpH (U)6.5 [pH]5.0-9.0[facility] Specific gravity (U) [Rel density]1.0201.005-1.025Gal[facility] HospitalUrobilinogen Qn (U)0.2 {Brendan'U}/dL0.2-1.0[facility] HospitalAlbumin [Mass/Vol]3.5 g/dL3.4-5.0[facility] HospitalALP [Catalytic activity/Vol]141 U/HEsyd53-566QcdmbylhmGalion HospitalALT [Catalytic activity/Vol]13 U/OZoh96-95FlfvitelwGalion HospitalAST [Catalytic activity/Vol]8 U/EMgi25-36MdcbhzvysGalion HospitalBilirubin [Mass/Vol]0.7 mg/dL0.2-1.0[facility] HospitalCalcium [Mass/Vol]9.6 mg/dL8.5-10.1FOhioHealth Grant Medical CenterChloride [Moles/Vol]99 mmol/L 98-107[facility] HospitalCO2 [Moles/Vol]21.7 mmol/L21.0-32.0 [facility] HospitalCreatinine [Mass/Vol]2.17 mg/dLHigh0.70-1.30 [facility] HospitalGFR/1.73 sq M.predicted MDRD (S/P/Bld) [Vol rate/Area]38 mL/min/{1.73_m2}Low>=60[facility] HospitalGlucose [Mass/Vol]191 mg/wFWsub96-455QemoomwzaGalion HospitalMagnesium [Mass/Vol]1.6 mg/dLLow1.8-2.4FOhioHealth Grant Medical CenterPotassium [Moles/Vol]3.8 mmol/L3.5-5.1FOhioHealth Grant Medical CenterProtein [Mass/Vol] 8.1 g/dL6.4-8.2FMary Rutan Hospitalodium [Moles/Vol]135 mmol/LLow 136-145[facility] HospitalUrea nitrogen [Mass/Vol]20.0 mg/dLHigh 7.0-18.0[facility] HospitalUrea nitrogen/Creatinine [Mass ratio] 9.2 mg/mgGalion HospitalLaboratory - Hematology and Cell countson 15-47-0145Kjwnbjgb granulocytes/100 WBC (Bld)0.3 %0.0-0.5FOhioHealth Grant Medical CenterLaboratory - Microbiology and Antimicrobial susceptibilityon 97-51-9610DTNE-CoV-2 (COVID-19) RNA NELLY+probe Ql (Unsp spec) NegativeNEGATIVEGalion HospitalComment on above:This test has not been [...] authorization is revoked sooner.Laboratory - Specimen informationon 35-88-5897Kgwsjyfnas (U)CLEAR CLEARGalion HospitalColor (U)YELLOWYELLOWGalion HospitalLaboratory - Urinalysison 45-96-7370Yrdbvyxdb esterase Test strip Ql (U)NegativeNEGATIVEGalion HospitalNitrite Ql (U)Negative NEGATIVEGalion HospitalProtein Ql (U)NegativeNEG/TRACE [facility] HospitalLeukocytes [#/volume] corrected for nucleated erythrocytes in Blood by Automated counon 58-45-0873CFN corrected for nucl RBC Auto (Bld) [#/Vol]9.3 10 3/uL4.0-11.0[facility] Lymphocytes Auto (Bld) [#/Vol]on 95-84-6151Pukeuypzyxg (Bld) [#/Vol]1.5 10 3/uL 1.2-3.8[facility] HospitalLymphocytes/100 WBC Auto (Bld)on 16-97-2444Lypqmizqgwz/100 WBC (Bld)15.7 %Low20.5-60.0[facility] HospitalMCH Auto (RBC) [Entitic mass]on 60-23-4409SSO (RBC) [Entitic mass]25.6 pg Low25.9-34.0[facility] HospitalMCHC Auto (RBC) [Mass/Vol]on 71-01-6207JRVL (RBC) [Mass/Vol]31.1 g/dL29.9-35.2FOhioHealth Grant Medical CenterMCV Auto (RBC) [Entitic vol]on 62-05-0588GYQ (RBC) [Entitic vol]82.4 fL 80.0-94.0[facility] HospitalMonocytes Auto (Bld) [#/Vol]on 67-95-5122Yzoreoyau (Bld) [#/Vol]0.9 10 3/uLHigh0.3-0.8[facility] HospitalMonocytes/100 WBC Auto (Bld)on 80-02-8413Tlbcqsrmf/100 WBC (Bld) 9.1 %1.7-12.0[facility] HospitalNeutrophils Auto (Bld) [#/Vol]on 06-43-3009Dzaqvexufir (Bld) [#/Vol]6.7 10 3/uLHigh1.4-6.5FOhioHealth Grant Medical CenterNeutrophils/100 WBC Auto (Bld)on 31-55-5202Memsbewvxkt/100 WBC (Bld)72.3 %43.0-75.0[facility] HospitalNo Panel Informationon 42.9 mmol/LHigh0.4-2.0[facility] HospitalUrine Microscopic ReviewNOGalion HospitalUrine Occult BloodNegative NEGATIVEGalion HospitalNegativeNEG/TRACEHCA Florida Fawcett HospitalCLEARCLEARGalion HospitalYELLOWYELLOWGalion Hospital500 mg/dLAbnormal NEGATIVEGalion Hospital6.55.0-9.0[facility]1.0201.005-1.025[facility]0.2 EU/dL0.2-1.0[facility] HospitalEosinophils # (Auto)0.2 10 3/uL0.0-0.7FOhioHealth Grant Medical CenterImmature Granulocyte # (Auto)0.03 10 3/uL0.00-0.03[facility] HospitalTroponin I High Sensitivity8.7 pg/mL4.0-76.1FOhioHealth Grant Medical CenterComment on above:CUT-OFF POINTS HAVE BEEN [...] CONJUNCTIONWITH OTHER DIAGNOSTIC AND CLINICAL INFORMATION.8.7 pg/mL4.0-76.1 [facility]1.6 mg/dLLow1.8-2.4FOhioHealth Grant Medical Center3.5 g/dL3.4-5.0[facility]0.2 10 3/uL0.0-0.7 [facility]141 U/KTmfe95-112TjcipjgddGalion Hospital13 U/UXhq44-35XrekwiqaiGalion Hospital8 U/IGnp90-10LksewoxlyGalion Hospital9.2FOhioHealth Grant Medical Center0.03 10 3/uL0.00-0.03 [facility]20.0 mg/dLHigh7.0-18.0[facility]0.3 %0.0-0.5FOhioHealth Grant Medical Center9.6 mg/dL8.5-10.1 [facility]99 mmol/R34-282QjisnzkhrGalion Hospital21.7 mmol/L21.0-32.0[facility]2.17 mg/dLHigh 0.70-1.30[facility] Hospital38Low>=60[facility]191 mg/bZAilr70-634ClimryctmGalion Hospital3.8 mmol/L3.5-5.1 [facility]135 mmol/EAzk038-854RfvaldbclGalion Hospital0.7 mg/dL0.2-1.0[facility]8.1 g/dL6.4-8.2FOhioHealth Grant Medical CenterPlatelet mean volume Auto (Bld) [Entitic vol]on 39-95-9820Ctlmsqjq mean volume (Bld) [Entitic vol]10.7 fL9.5-13.5FOhioHealth Grant Medical CenterPlatelets Auto (Bld) [#/Vol]on 06-70-3288Rrgtwssti (Bld) [#/Vol]294 10 3/qP865-451DhsylpeonGalion HospitalRBC Auto (Bld) [#/Vol] on 32-54-4059LIK (Bld) [#/Vol]4.76 10 6/uL4.70-6.10[facility] Centererum or plasma albumin/globulin mass ratioon 09-00-9455Aoewzaj/Globulin [Mass ratio]0.8 {ratio}[facility] Centererum or plasma anion gap determinationon 66-82-0590Chgay gap [Moles/Vol]18.1 mmol/LFOhioHealth Grant Medical CenterOutside Operativeon 65-33-7955Uyxhqwm Operative [id number]#1.00TIFSelect Medical Specialty Hospital - Cincinnati NorthPhysician Orderon 91-74-7587Bcytcrkxy Order [id number]#1.00TIFSelect Medical Specialty Hospital - Cincinnati NorthBasophils Auto (Bld) [#/Vol]on 58-93-6566Dgatbffoi (Bld) [#/Vol]0.1 10 3/uL0.0-0.1FOhioHealth Grant Medical CenterBasophils/100 WBC Auto (Bld)on 37-41-8117Ejfbanljc/100 WBC (Bld)1.1 %0.2-2.0[facility] Eosinophils/100 WBC Auto (Bld)on 15-15-8120Lmiiymlcfwd/100 WBC (Bld)3.5 %0.9-7.0 [facility] HospitalErythrocyte distribution width Auto (RBC) [Ratio]on 36-03-9000Gwwmpbnenpw distribution width (RBC) [Ratio]20.0 %High 11.0-15.0[facility] HospitalEstimated glomerular filtration rate (GFR) non- Americanon 57-35-7974QAC/1.73 sq M.predicted among non-blacks MDRD (S/P/Bld) [Vol rate/Area]41 mL/min/{1.73_m2}Low>=60[facility] HospitalGlobulin Calc (S) [Mass/Vol]on 04-73-4479Dwrputtv (S) [Mass/Vol] 4.2 g/dLGalion HospitalHematocrit Auto (Bld) [Volume fraction] on 84-67-9760Uhecmmzpbh (Bld) [Volume fraction]33.1 %Low42.0-54.0[facility] HospitalHemoglobin [Mass/volume] in Bloodon 62-71-1272Bjjytlbckg (Bld) [Mass/Vol]9.8 g/dLLow14.0-18.0[facility] HospitalLaboratory - Chemistry and Chemistry - challengeon 26-00-8266Zjaaixh [Mass/Vol]3.2 g/dLLow 3.4-5.0[facility] HospitalALP [Catalytic activity/Vol]143 U/LHigh 46-116[facility] HospitalALT [Catalytic activity/Vol]16 U/L16-63 [facility] HospitalAST [Catalytic activity/Vol]14 U/AYln83-39 [facility] HospitalBilirubin [Mass/Vol]0.5 mg/dL0.2-1.0[facility] HospitalCalcium [Mass/Vol]9.1 mg/dL8.5-10.1FOhioHealth Grant Medical CenterChloride [Moles/Vol]101 mmol/V44-771KzlzducmvGalion HospitalCO2 [Moles/Vol]24.2 mmol/L21.0-32.0[facility] Creatinine [Mass/Vol]1.72 mg/dLHigh0.70-1.30[facility] GFR/1.73 sq M.predicted MDRD (S/P/Bld) [Vol rate/Area]50 mL/min/{1.73_m2}Low>=60 [facility] HospitalGlucose [Mass/Vol]132 mg/xWOcid14-982UrmuzpeqvGalion HospitalLactate [Moles/Vol]3.6 mmol/LHigh0.4-2.0[facility] HospitalComment on above:RESULTS CALLED TO DR CROOK/ERPotassium [Moles/Vol]3.7 mmol/L3.5-5.1FOhioHealth Grant Medical CenterProtein [Mass/Vol] 7.4 g/dL6.4-8.2FMary Rutan Hospitalodium [Moles/Vol]138 mmol/L 136-145[facility] HospitalUrea nitrogen [Mass/Vol]26.0 mg/dLHigh 7.0-18.0[facility] HospitalUrea nitrogen/Creatinine [Mass ratio] 15.1 mg/mgGalion HospitalLaboratory - Hematology and Cell countson 25-40-8310QEH (Bld) [Velocity]96 mm/hHigh<=20[facility] HospitalImmature granulocytes/100 WBC (Bld)0.4 %0.0-0.5FOhioHealth Grant Medical CenterLeukocytes [#/volume] corrected for nucleated erythrocytes in Blood by Automated counon 73-40-3740WFX corrected for nucl RBC Auto (Bld) [#/Vol]9.1 10 3/uL4.0-11.0[facility] HospitalLymphocytes Auto (Bld) [#/Vol]on 75-31-3161Jlugzrdvzjf (Bld) [#/Vol]2.1 10 3/uL1.2-3.8[facility] HospitalLymphocytes/100 WBC Auto (Bld)on 08-43-3234Xdeidebpbby/100 WBC (Bld)23.4 % 20.5-60.0[facility] HospitalH Auto (RBC) [Entitic mass]on 59-41-9198ZFJ (RBC) [Entitic mass]24.8 pgLow25.9-34.0[facility] HospitalMCHC Auto (RBC) [Mass/Vol]on 65-19-2816XYJC (RBC) [Mass/Vol]29.6 g/dLLow 29.9-35.2FOhioHealth Grant Medical CenterMCV Auto (RBC) [Entitic vol]on 46-59-3411GBN (RBC) [Entitic vol]83.8 fL80.0-94.0[facility] HospitalMonocytes Auto (Bld) [#/Vol]on 23-13-3824Dktmacdeu (Bld) [#/Vol]0.8 10 3/uL0.3-0.8[facility] HospitalMonocytes/100 WBC Auto (Bld)on 62-50-3860Ylyfskdlj/100 WBC (Bld)8.5 %1.7-12.0[facility] Neutrophils Auto (Bld) [#/Vol]on 84-17-9274Yhgyrmooshf (Bld) [#/Vol]5.7 10 3/uL 1.4-6.5FOhioHealth Grant Medical CenterNeutrophils/100 WBC Auto (Bld)on 06-90-7425Bbbzrqafqoj/100 WBC (Bld)63.1 %43.0-75.0[facility] HospitalNo Panel InformationOrdered By: HERNAN CROOK on 46-10-3375Dnrmu Culture 2FOhioHealth Grant Medical CenterBlood Culture 1FOhioHealth Grant Medical CenterNo Panel Informationon 44-18-2268O-Reactive Protein, Quantitative<0.50 mg/dL<=0.50[facility] HospitalEosinophils # (Auto)0.3 10 3/uL 0.0-0.7FOhioHealth Grant Medical CenterImmature Granulocyte # (Auto)0.04 10 3/uLHigh0.00-0.03[facility] HospitalPlatelet mean volume Auto (Bld) [Entitic vol]on 91-83-3601Wbzavffp mean volume (Bld) [Entitic vol]10.4 fL 9.5-13.5FOhioHealth Grant Medical CenterPlatelets Auto (Bld) [#/Vol]on 12-50-8539Npdlfokeb (Bld) [#/Vol]371 10 3/uG510-726CksfwqmyzGalion HospitalRBC Auto (Bld) [#/Vol]on 96-93-1463HSW (Bld) [#/Vol]3.95 10 6/uLLow 4.70-6.10[facility] Centererum or plasma albumin/globulin mass ratioon 83-34-9172Hgmzztq/Globulin [Mass ratio]0.8 {ratio}[facility] Centererum or plasma anion gap determinationon 60-14-8107Rncez gap [Moles/Vol]16.5 mmol/LFOhioHealth Grant Medical CenterProgress Note-Physicianon 09-93-6635Zjbrdinv Note-Physician [id number]#1.00TIFFNormalFisher Baltimore Va Medical CenterBasophils Auto (Bld) [#/Vol]on 20-84-5626Lnqcfkgsx (Bld) [#/Vol]0.1 10 3/uL0.0-0.1FOhioHealth Grant Medical CenterBasophils/100 WBC Auto (Bld)on 46-99-4232Vddutzzlx/100 WBC (Bld)0.8 %0.2-2.0[facility] Eosinophils/100 WBC Auto (Bld)on 91-79-3661Diyeryctshi/100 WBC (Bld)5.9 %0.9-7.0 [facility] HospitalErythrocyte distribution width Auto (RBC) [Ratio]on 08-12-1518Kpbblhjclfl distribution width (RBC) [Ratio]20.6 %High 11.0-15.0[facility] HospitalEstimated glomerular filtration rate (GFR) non- Americanon 53-83-5050PHF/1.73 sq M.predicted among non-blacks MDRD (S/P/Bld) [Vol rate/Area]44 mL/min/{1.73_m2}Low>=60[facility] HospitalGlobulin Calc (S) [Mass/Vol]on 22-98-6070Ytdjzvaz (S) [Mass/Vol] 4.7 g/dLGalion HospitalHematocrit Auto (Bld) [Volume fraction] on 73-57-7632Zledvuwyjs (Bld) [Volume fraction]27.6 %Low42.0-54.0[facility] HospitalHemoglobin [Mass/volume] in Bloodon 32-44-6203Ocbejkudcg (Bld) [Mass/Vol]8.5 g/dLLow14.0-18.0[facility] HospitalLaboratory - Chemistry and Chemistry - challengeon 76-38-1597Iwqibmr [Mass/Vol]2.4 g/dLLow 3.4-5.0[facility] HospitalALP [Catalytic activity/Vol]194 U/LHigh 46-116[facility] HospitalALT [Catalytic activity/Vol]22 U/L16-63 [facility] HospitalAST [Catalytic activity/Vol]25 U/L15-37 [facility] HospitalBilirubin [Mass/Vol]0.9 mg/dL0.2-1.0[facility] HospitalCalcium [Mass/Vol]8.9 mg/dL8.5-10.1FOhioHealth Grant Medical CenterChloride [Moles/Vol]97 mmol/TGqm20-412LjldwxjxoGalion HospitalCO2 [Moles/Vol]26.6 mmol/L21.0-32.0[facility] Creatinine [Mass/Vol]1.63 mg/dLHigh0.70-1.30[facility] GFR/1.73 sq M.predicted MDRD (S/P/Bld) [Vol rate/Area]53 mL/min/{1.73_m2}Low>=60 [facility] HospitalGlucose [Mass/Vol]226 mg/sGOpcr36-436SwqysbwfbGalion HospitalLactate [Moles/Vol]1.4 mmol/L0.4-2.0[facility] HospitalPotassium [Moles/Vol]4.1 mmol/L3.5-5.1FOhioHealth Grant Medical CenterProtein [Mass/Vol]7.1 g/dL6.4-8.2FMary Rutan Hospitalodium [Moles/Vol]135 mmol/VAxc464-235PqulujhtxGalion HospitalUrea nitrogen [Mass/Vol]24.0 mg/dLHigh7.0-18.0[facility] HospitalUrea nitrogen/Creatinine [Mass ratio]14.7 mg/mgGalion Hospital Laboratory - Hematology and Cell countson 63-69-7977Yxjodfol granulocytes/100 WBC (Bld)0.6 %High0.0-0.5FOhioHealth Grant Medical CenterLeukocytes [#/volume] corrected for nucleated erythrocytes in Blood by Automated counon 93-16-5844FBU corrected for nucl RBC Auto (Bld) [#/Vol]9.5 10 3/uL4.0-11.0[facility] HospitalLymphocytes Auto (Bld) [#/Vol]on 67-51-6631Xdszmjddmpn (Bld) [#/Vol]1.3 10 3/uL1.2-3.8[facility] HospitalLymphocytes/100 WBC Auto (Bld)on 24-00-8004Sjmpprlivic/100 WBC (Bld)14.1 %Low20.5-60.0[facility] HospitalH Auto (RBC) [Entitic mass]on 69-79-6378ZRG (RBC) [Entitic mass]24.9 pgLow25.9-34.0[facility] HospitalMCHC Auto (RBC) [Mass/Vol]on 61-15-2049RHFG (RBC) [Mass/Vol]30.8 g/dL29.9-35.2FOhioHealth Grant Medical CenterMCV Auto (RBC) [Entitic vol]on 89-58-5659BFC (RBC) [Entitic vol]80.9 fL80.0-94.0[facility] HospitalMonocytes Auto (Bld) [#/Vol]on 15-75-1909Srvydvhtx (Bld) [#/Vol]1.1 10 3/uLHigh0.3-0.8[facility] HospitalMonocytes/100 WBC Auto (Bld)on 59-76-4216Xbjvwtiam/100 WBC (Bld)11.9 %1.7-12.0[facility] HospitalNeutrophils Auto (Bld) [#/Vol]on 23-95-1951Ngttmzcgjtl (Bld) [#/Vol]6.4 10 3/uL1.4-6.5FOhioHealth Grant Medical CenterNeutrophils/100 WBC Auto (Bld)on 11-15-2023 Neutrophils/100 WBC (Bld)66.7 %43.0-75.0[facility] HospitalNo Panel InformationOrdered By: Fely Marker on 68-39-9518Twala Culture 2 [facility] HospitalBlood Culture 1FOhioHealth Grant Medical CenterNo Panel Informationon 04-04-2809Knklgydjill # (Auto)0.6 10 3/uL0.0-0.7 [facility] HospitalImmature Granulocyte # (Auto)0.06 10 3/uLHigh 0.00-0.03[facility] HospitalPlatelet mean volume Auto (Bld) [Entitic vol]on 81-39-9804Rxqzgxrm mean volume (Bld) [Entitic vol]10.8 fL 9.5-13.5FOhioHealth Grant Medical CenterPlatelets Auto (Bld) [#/Vol]on 16-45-7277Smlprfmkf (Bld) [#/Vol]338 10 3/jD473-363DllxwxwfrGalion HospitalRBC Auto (Bld) [#/Vol]on 29-95-0517YIE (Bld) [#/Vol]3.41 10 6/uLLow 4.70-6.10[facility] Centererum or plasma albumin/globulin mass ratioon 81-89-9670Tuwtyxi/Globulin [Mass ratio]0.5 {ratio}[facility] Centererum or plasma anion gap determinationon 94-20-0030Omrxc gap [Moles/Vol]15.5 mmol/LFOhioHealth Grant Medical CenterBASIC METABOLIC PANLon 34-10-4661Vsawt gap [Moles/Vol]10 mmol/LNormal5-15ProTrumbull Memorial Hospital Comment on above:Performed By: #### KENDALL MARTÍNEZ, 65390-2, 2777-1 ####[facility] ([id number])[address], [address] [place] [address] Calcium [Mass/Vol]8.8 mg/dLNormal8.5-10.5PPremier Health Miami Valley HospitalComment on above:Performed By: #### CBC, BMP, 63690-9, 2777-1 ####[facility] ([id number])[address], [address] [place] [place], [place] [address]Oaifgryd [Moles/Vol]99 mmol/DCpaykx99-917KbrZuclyg [place] HospitalComment on above:Performed By: #### KENDALL MARTÍNEZ, , 2776-06 ####[facility] ([id number])[address], [address], [place] [address]RG7 [Moles/Vol]26 mmol/EYpdygb54-92NjsAsmxxp [place] HospitalComment on above:Performed By: #### KENDALL MARTÍNEZ, , 2776-06 ####[facility] ([id number])[address] [address] [place], [place] [address]Yucneeccoe [Mass/Vol]1.61 mg/dLHigh0.60-1.30[facility] Comment on above:Result Comment: METHOD TRACEABLE TO IDMS STANDARDPerformed By: #### KENDALL MARTÍNEZ, , 2776-06 ####[facility] ([id number])[address] [address] [place], [place] [address]VQB/1.73 sq M.predicted among non-blacks MDRD (S/P/Bld) [Vol rate/Area]49 mL/min/{1.73_m2}Low>59ProTrumbull Memorial Hospital Comment on above:Result Comment: Reported eGFR is based on the CKD-EPI 2020 equation that does not use a race coefficient.Performed By: #### KENDALL MARTÍNEZ, , 2776-06 ####[facility] ([id number])[address] [address] [place], [place] [address]Hsrlxwr [Mass/Vol]184 mg/yMPsll09-91VcaGrlqonTrumbull Memorial HospitalComment on above:Performed By: #### KENDALL MARTÍNEZ, , 2776-06 ####[facility] ([id number])[address] [address] [place], [place] [address]Teooqxjal [Moles/Vol] 4.0 mmol/LNormal3.5-5.0ProRiverview Health Instituteca Brookfield HospitalComment on above:Performed By: #### KENDALL MARTÍNEZ, , 2776-06 ####[facility] ([id number])[address], [address] [place] [address]Ofsfjz [Moles/Vol]135 mmol/YJenqnr831-156 ProMTogus VA Medical Center HospitalComment on above:Performed By: #### TANYA, KENDALL, , 2776-06 ####[facility] ([id number])[address], [address], [place] [address]Uexr nitrogen [Mass/Vol]23 mg/dLNormal5-23ProRiverview Health Instituteca Brookfield HospitalComment on above:Performed By: #### KENDALL MARTÍNEZ, , 2776-06 ####[facility] ([id number])[address], [address] [place] [address] COMPLETE BLOOD COUNTon 29-75-5559Zdoydxzekff distribution width (RBC) [Ratio] 22.8 %High11.5-15.0ProRiverview Health Instituteca Brookfield HospitalComment on above:Performed By: #### KENDALL MARTÍNEZ, , 2776-06 ####[facility] ([id number])[address] [address] [place] [address]Mxroabbovb (Bld) [Volume fraction]25.1 %Low 39-49ProRiverview Health Instituteca Brookfield HospitalComment on above:Performed By: #### TANYA, KENDALL, , 2776-06 ####[facility] ([id number])[address] [address] [place] [address]Jaicisdvqh (Bld) [Mass/Vol]8.1 g/dLLow13.0-17.0 ProMTogus VA Medical Center HospitalComment on above:Performed By: #### TANYA, KENDALL, , 2776-06 ####[facility] ([id number])[address], [address] [place] [address]NKW (RBC) [Entitic mass]25.1 vbTmo66-77BupGkpmje Marina HospitalComment on above:Performed By: #### TANYA, KENDALL, , 2776-06 ####[facility] ([id number])[address], [address] [place] [address]EGVS (RBC) [Mass/Vol]32.4 g/bDNgnpbp15-85JqwEmaccz [facility] HospitalComment on above: Performed By: #### TANYA, KENDALL, , 2776-06 ####[facility] ([id number])[address], [address] [place] [address]XFR (RBC) [Entitic vol]77 nQVta78-217LxbAjzhxt [facility] HospitalComment on above:Performed By: #### TANYA, KENDALL, , 2776-06 ####[facility] ([id number])[address], [address] [place] [address] 19797Efqaxmyc mean volume (Bld) [Entitic vol]8.8 fL Normal7-12ProMedica Marina HospitalComment on above:Performed By: #### TANYA, BMP, , 2776-06 ####[facility] ([id number])[address], [address] [place] [address] 759[address]Jumayhccj (Bld) [#/Vol]232 10*3/mELcpikw210-028 [facility] HospitalComment on above:Performed By: #### TANYA, BMP, , 2776-06 ####[facility] ([id number])[address], [address] [place] [address]IIE COUNT3.25 X10E12/LLow4.10-5.70[facility] Comment on above:Performed By: #### TANYA, BMP, , 2776-06 ####[facility] ([id number])[address], [address] [place] [address]CYN (Bld) [#/Vol]8.4 10*3/uLNormal4.0-11.0ProMedica Marina HospitalComment on above: Performed By: #### KENDALL MARTÍNEZ, , 277-1 ####[facility] ([id number])[address], [address] [place] [address] 825[address]Hhbnkjw Glucometer (BldC) [Mass/Vol]on 98-14-4034Vwquhbw [Mass/Vol]173 mg/uBNogv31-98YyzVvpoxf Marina HospitalGlucose [Mass/Vol]279 mg/hPZwvr59-47GwdOyeewo [facility] HospitalGlucose [Mass/Vol]249 mg/aPWicd47-42RelGxrmyi [facility] HospitalMAGNESIUMon 11-14-2023 Magnesium [Mass/Vol]2.1 mg/dLNormal1.8-2.6ProMedica Marina HospitalComment on above:Performed By: #### 18161-3 ####[facility] ([id number])[address], [address] [place] [address] 437[address]Ucmojctjl [Mass/Vol]mg/dL Critically low1.8-2.6Pro[facility]ica [facility] HospitalComment on above:Performed By: #### 06675-6 ####[facility] ([id number])[address], [address], [place] [address]Cpekrvktr [Mass/Vol]1.7 mg/dLLow1.8-2.6Pro[facility]ica [facility] HospitalComment on above:Performed By: #### TANYA, KENDALL, , 2771 ####[facility] ([id number])[address], [address] [address] PHOSPHORUSon 42-58-1016Ilbibxmoq [Mass/Vol]3.6 mg/dLNormal2.4-4.9Pro[facility] HospitalComment on above:Performed By: #### TANYA, KENDALL, , 2776-06 ####[facility] ([id number])[address], [address], [place] [address]CRMWX METABOLIC PANLon 61-13-3474Rcdbg gap [Moles/Vol]10 mmol/LNormal5-15 [facility] HospitalComment on above:Performed By: #### TANYA, KENDALL, , 2776-06 ####[facility] ([id number])[address], [address], [place] [address]Fhmesle [Mass/Vol]8.9 mg/dLNormal8.5-10.5Pro[facility] HospitalComment on above:Performed By: #### KENDALL MARTÍNEZ, , 2776-06 ####[facility] ([id number])[address], [address], [place] [address] Chloride [Moles/Vol]98 mmol/NCkpcsp99-799QacTdhgve Marina HospitalComment on above:Performed By: #### TANYA, KENDALL, , 2776-06 ####[facility] ([id number])[address], [address], [place] [address]ON5 [Moles/Vol]27 mmol/BBnyfos95-94TsxJiwkbd Marina HospitalComment on above:Performed By: #### TANYA, KENDALL, , 2776-06 ####[facility] ([id number])[address], [address], [place] [address]Kqznjukyle [Mass/Vol]1.47 mg/dLHigh0.60-1.30 [facility] HospitalComment on above:Result Comment: METHOD TRACEABLE TO IDMS STANDARDPerformed By: #### KENDALL MARTÍNEZ, , 2776-06 ####[facility] ([id number])[address], [address], [place] [address]LAG/1.73 sq M.predicted among non-blacks MDRD (S/P/Bld) [Vol rate/Area]55 mL/min/{1.73_m2} Low>59ProRiverview Health Instituteca Brookfield HospitalComment on above:Result Comment: Reported eGFR is based on the CKD-EPI 2020 equation that does not use a race coefficient.Performed By: #### KENDALL MARTÍNEZ, , 2776-06 ####[facility] ([id number])[address] [address], [place] [address]Bymqrdf [Mass/Vol]164 mg/nXKabp85-71LdgOfnavx [place] HospitalComment on above:Performed By: #### KENDALL MARTÍNEZ, , 2776-06 ####[facility] ([id number])[address] [address]Ndjigwejw [Moles/Vol] 3.8 mmol/LNormal3.5-5.0ProGal[facility] Hospital HospitalComment on above:Performed By: #### KENDALL MARTÍNEZ, , 2776-06 ####[facility] ([id number])[address] [address]Yezmwi [Moles/Vol]135 mmol/RNwxoti581-887 ProMTogus [facility] Center HospitalComment on above:Performed By: #### KENDALL MARTÍNEZ, , 2776-06 ####[facility] ([id number])[address] [address]Sect nitrogen [Mass/Vol]26 mg/dLHigh5-23ProGalion [facility] Hospital HospitalComment on above:Performed By: #### KENDALL MARTÍNEZ, , 2776-06 ####[facility] ([id number])[address] [address] COMPLETE BLOOD COUNTon 97-18-5228Mzfsnzrfzha distribution width (RBC) [Ratio] 23.2 %High11.5-15.0Pro[facility] HospitalComment on above:Performed By: #### TANYA, BMP, , 2776-06 ####[facility] ([id number])[address], [place] [address]Rolzbcqfbj (Bld) [Volume fraction]24.7 %Low 39-49Pro[facility] HospitalComment on above:Performed By: #### CBC, BMP, , 2776-06 ####[facility] ([id number])[address], [address], [place] [address]Fblswnznvx (Bld) [Mass/Vol]8.2 g/dLLow13.0-17.0 [facility] HospitalComment on above:Performed By: #### TANYA, BMP, , 2776-06 ####[facility] ([id number])[address], [address], [place] [address]GKF (RBC) [Entitic mass]25.7 ndCcw71-02AvqVkwhsc [facility] HospitalComment on above:Performed By: #### TANYA, BMP, , 2776-06 ####[facility] ([id number])[address], [address], [place] [address]VFNH (RBC) [Mass/Vol]33.4 g/uZZhihnr53-53GzpLilnte [facility] HospitalComment on above: Performed By: #### CBC, BMP, , 2776-06 ####[facility] ([id number])[address], [address], [place] [address]QGZ (RBC) [Entitic vol]77 mGQqb92-358EmiMhtphw [facility] HospitalComment on above:Performed By: #### CBC, BMP, , 2776-06 ####[facility] ([id number])[address], [place] [address]Brysblzm mean volume (Bld) [Entitic vol]8.8 fL Normal7-12[facility] HospitalComment on above:Performed By: #### TANYA, KENDALL, , 2776-06 ####[facility] ([id number])[address], [address] [place] [address]Rnizfpexb (Bld) [#/Vol]207 10*3/gEUvqxkl228-462 [facility] HospitalComment on above:Performed By: #### TANYA, KENDALL, , 2776-06 ####[facility] ([id number])[address], [address] [place] [address]NHH COUNT3.21 X10E12/LLow4.10-5.70[facility] Comment on above:Performed By: #### KENDALL MARTÍNEZ, , 2776-06 ####[facility] ([id number])[address], [address] [place] [address]BVX (Bld) [#/Vol]8.1 10*3/uLNormal4.0-11.0Pro[facility] HospitalComment on above: Performed By: #### TANYA, KENDALL, , 2776-06 ####[facility] ([id number])[address], [address] [place] [address]Sjqeeyf Glucometer (BldC) [Mass/Vol]on 53-11-5337Gxyrpws [Mass/Vol]230 mg/uBZxic71-06LoiIycutj [facility] HospitalGlucose [Mass/Vol]225 mg/mQOpow62-03FvoSwumuz [facility] HospitalGlucose [Mass/Vol]331 mg/rDQmah45-14SooYhahny [facility] HospitalGlucose [Mass/Vol]190 mg/dL Arlp73-45GrpLkulps [facility] HospitalMAGNESIUMon 87-70-2973Jykxtzidv [Mass/Vol]2.1 mg/dLNormal1.8-2.6[facility] HospitalComment on above:Performed By: #### TANYA, BMP, 904[address]-0, 2777-1 ####[facility] ([id number])[address], [address], [place] [address]ZWEQFESGVBqy 80-94-6523Fsxosvocr [Mass/Vol] 3.8 mg/dLNormal2.4-4.9[facility] HospitalComment on above:Performed By: #### TANYA, BMP, , 2777- ####[facility] ([id number])[address], [address], [place] [address]BUPLB METABOLIC PANLon 17-57-6091Kpfxz gap [Moles/Vol]11 mmol/LNormal5-15[facility] HospitalComment on above: Performed By: #### TANYA, BMP #### [facility] ([id number]) [address], [address] [place], [place] [address]Feuxytk [Mass/Vol]9.0 mg/dLNormal8.5-10.5[facility] HospitalComment on above:Performed By: #### TANYA, BMP #### [facility] ([id number]) [address], [address] [place], [place] [address]Ujrpvetc [Moles/Vol]98 mmol/YVlsywt54-449KmmGtuear [facility] HospitalComment on above:Performed By: #### TANYA, BMP #### [facility] ([id number]) [address], [address] [place], [place] [address]WC7 [Moles/Vol]25 mmol/HMamgxu37-57LbwNflded [place] [facility] Comment on above:Performed By: #### TANYA, BMP #### [facility] ([id number]) [address], [address] [place], [place] [address]Ushpasapno [Mass/Vol]1.40 mg/dLHigh0.60-1.30[facility] [place] HospitalComment on above:Result Comment: METHOD TRACEABLE TO IDMS STANDARD Performed By: #### TANYA, BMP #### [facility] ([id number]) [address] [address] [place], [place] [address]UYZ/1.73 sq M.predicted among non-blacks MDRD (S/P/Bld) [Vol rate/Area]58 mL/min/{1.73_m2}Low>59[facility] HospitalComment on above: Result Comment: Reported eGFR is based on the CKD-EPI 2020 equation that does not use a race coefficient.Performed By: #### TANYA, BMP #### [facility] ([id number]) [address] [address] [place], [place] [address]Wrhmwey [Mass/Vol]194 mg/eSWufq48-05OizPlakfb [facility] Comment on above:Performed By: #### TANYA, BMP #### [facility] ([id number]) [address] [address] [place], [place] [address]Pwumwfjmu [Moles/Vol]4.0 mmol/LNormal3.5-5.0[facility] HospitalComment on above:Performed By: #### TANYA, BMP #### [facility] ([id number]) [address] [place], [place] [address]Kugyyn [Moles/Vol]134 mmol/VIxkmht947-272AalInhrwf [place] HospitalComment on above:Performed By: #### CBC, BMP #### [facility] ([id number]) [address] [address] [place], [place] [address]Uagk nitrogen [Mass/Vol]23 mg/dLNormal5-23Pro[facility] HospitalComment on above:Performed By: #### CBC, BMP #### [facility] ([id number]) [address] [address] [place], [place] [address]MQXBTZNG BLOOD COUNTon 62-59-9630Ysbucweoohq distribution width (RBC) [Ratio]24.1 %High11.5-15.0ProRiverview Health Instituteca Brookfield HospitalComment on above: Performed By: #### CBC, BMP #### [facility] ([id number]) [address], [address] [place], [place] [address]Gfqdfmsikn (Bld) [Volume fraction]25.8 %Api40-87ArjRazlwj [place] HospitalComment on above:Performed By: #### CBC, BMP #### [facility] ([id number]) [address], [address] [place], [place] [address]Xqboovhtji (Bld) [Mass/Vol]8.6 g/dLLow13.0-17.0[facility] HospitalComment on above:Performed By: #### CBC, BMP #### [facility] ([id number]) [address], [address] [place], [place] [address]NZO (RBC) [Entitic mass]25.7 qxXsh46-54ZxvPpgnvxCherrington Hospital Comment on above:Performed By: #### CBC, BMP #### [facility] ([id number]) [address], [address] [place], [place] [address]TDGD (RBC) [Mass/Vol]33.5 g/rWTlisgq16-27OugOgwzch [place] HospitalComment on above:Performed By: #### CBC, BMP #### [facility] ([id number]) [address], [address] [place], [place] [address]OHN (RBC) [Entitic vol]77 rNKbx60-238TkjNxweojCherrington Hospital Comment on above:Performed By: #### CBC, BMP #### [facility] ([id number]) [address], [address] [place], [place] [address]Fmpeclbo mean volume (Bld) [Entitic vol]9.2 fLNormal7-12 [facility] HospitalComment on above:Performed By: #### CBC, BMP #### [facility] ([id number]) [address], [address] [place], [place] [address]Ltudlvkct (Bld) [#/Vol]185 10*3/hCAjxbjx672-565RtuXwpkpa [place] HospitalComment on above:Performed By: #### CBC, BMP #### [facility] ([id number]) [address] [address] [place] [address]NKS COUNT3.37 X10E12/LLow4.10-5.70ProTr[facility] Comment on above:Performed By: #### CBC, BMP #### [facility] ([id number]) [address] [place], [place] [address]XFD (Bld) [#/Vol]10.0 10*3/uLNormal4.0-11.0ProTrumbull Memorial HospitalComment on above:Performed By: #### CBC, BMP #### [facility] ([id number]) [address], [address] [place] [address]Czmbupj Glucometer (BldC) [Mass/Vol]on 14-49-5602Xeuxqrb [Mass/Vol]230 mg/xHLkvn45-85ZeiWzhrew [place] HospitalGlucose [Mass/Vol]280 mg/dL Mivc35-33PrvCbeipm [place] HospitalGlucose [Mass/Vol]268 mg/gMKzrn95-25SjaWpayca [place] HospitalGlucose [Mass/Vol]220 mg/dSKgtv89-59HavXtxlxt [facility] Glucose [Mass/Vol]205 mg/eQGfuq71-38CwsVfmrmu [place] HospitalMAGNESIUMon 21-69-8629Egppqlzfa [Mass/Vol]1.8 mg/dLNormal1.8-2.6[facility] Comment on above:Performed By: #### CBC, BMP #### [facility] ([id number]) [address], [address] [place], [place] [address]SNYMDPNDMOmr 43-93-4909Potfxcdmw [Mass/Vol]3.8 mg/dLNormal 2.4-4.9[facility] HospitalComment on above:Performed By: #### TANYA, BMP #### [facility] ([id number]) [address], [address] [place], [place] [address]YZUMC METABOLIC PANLon 65-33-7880Bslhm gap [Moles/Vol]8 mmol/L Normal5-15[facility] HospitalComment on above:Performed By: #### CBC, BMP #### [facility] ([id number]) [address], [address] [place], [place] [address]Vamkkbs [Mass/Vol]8.7 mg/dLNormal8.5-10.5[facility] HospitalComment on above:Performed By: #### TANYA, BMP #### [facility] ([id number]) [address], [address] [place], [place] [address]Oovandni [Moles/Vol]99 mmol/UPsqhhf23-594QdxKzcpkp [place] HospitalComment on above:Performed By: #### TANYA, BMP #### [facility] ([id number]) [address], [address] [place], [place] [address]AG8 [Moles/Vol]26 mmol/NAoogwl36-82WcpTabqxf [facility] Comment on above:Performed By: #### CBC, BMP #### [facility] ([id number]) [address], [address] [place], [place] [address]Ayoxkuviki [Mass/Vol]1.45 mg/dLHigh0.60-1.30ProRiverview Health Instituteca Marina HospitalComment on above:Result Comment: METHOD TRACEABLE TO IDMS STANDARD Performed By: #### CBC, BMP #### [facility] ([id number]) [address], [address] [place], [place] [address]ZGW/1.73 sq M.predicted among non-blacks MDRD (S/P/Bld) [Vol rate/Area]56 mL/min/{1.73_m2}Low>59Pro[facility] HospitalComment on above: Result Comment: Reported eGFR is based on the CKD-EPI 2020 equation that does not use a race coefficient.Performed By: #### TANYA, BMP #### [facility] ([id number]) [address], [address] [place], [place] [address]Csmoykm [Mass/Vol]153 mg/kEYenx15-27CwmNbaitsCherrington Hospital Comment on above:Performed By: #### CBC, BMP #### [facility] ([id number]) [address] [address]Jtqggtyar [Moles/Vol]3.9 mmol/LNormal3.5-5.0ProTrumbull Memorial HospitalComment on above:Performed By: #### CBC, BMP #### [facility] ([id number]) [address], [address] [place], [place] [address]Wpouec [Moles/Vol]133 mmol/ROuf027-716MagFsuvywCherrington Hospital Comment on above:Performed By: #### CBC, BMP #### [facility] ([id number]) [address] [address]Alkc nitrogen [Mass/Vol]27 mg/dLHigh5-23ProTrumbull Memorial HospitalComment on above:Performed By: #### CBC, BMP #### [facility] ([id number]) [address] [address]VPJHIYVI BLOOD COUNTon 43-03-3848Fcnxvqxpgpg distribution width (RBC) [Ratio]24.2 %High11.5-15.0Pro[facility] HospitalComment on above: Performed By: #### CBC, BMP #### [facility] ([id number]) [address] [address]Xbnwgbeytm (Bld) [Volume fraction]25.1 %Lua02-67IoiIaewgz [place] HospitalComment on above:Performed By: #### CBC, BMP #### [facility] ([id number]) [address], [address] [place], [place] [address]Shvamvjnik (Bld) [Mass/Vol]8.2 g/dLLow13.0-17.0[facility] HospitalComment on above:Performed By: #### CBC, BMP #### [facility] ([id number]) [address], [address] [place], [place] [address]ESP (RBC) [Entitic mass]25.5 ejHra86-27ZkyGgfzwyCherrington Hospital Comment on above:Performed By: #### CBC, BMP #### [facility] ([id number]) [address], [address] [place], [place] [address]DLGK (RBC) [Mass/Vol]32.7 g/gLSjmdei34-09CswYujkxw [place] HospitalComment on above:Performed By: #### CBC, BMP #### [facility] ([id number]) [address], [address] [place], [place] [address]BQU (RBC) [Entitic vol]78 oBCyv75-170XxlCfjzmyCherrington Hospital Comment on above:Performed By: #### CBC, BMP #### [facility] ([id number]) [address], [address] [place], [place] [address]Utazzfvx mean volume (Bld) [Entitic vol]9.0 fLNormal7-12 ProMTogus [facility] HospitalComment on above:Performed By: #### CBC, BMP #### [facility] ([id number]) [address], [address] [place], [place] [address]Zrqhcrrac (Bld) [#/Vol]152 10*3/wRQexjgs352-250LpeAfwpzj [place] HospitalComment on above:Performed By: #### CBC, BMP #### [facility] ([id number]) [address], [address] [place], [place] [address]YKY COUNT3.22 X10E12/LLow4.10-5.70[facility] Comment on above:Performed By: #### TANYA, BMP #### [facility] ([id number]) [address], [address] [place], [place] [address]HQE (Bld) [#/Vol]9.8 10*3/uLNormal4.0-11.0[facility] HospitalComment on above:Performed By: #### CBC, BMP #### [facility] ([id number]) [address], [address] [place], [place] [address]Nyhfuuh Glucometer (BldC) [Mass/Vol]on 01-29-8720Lyyhlqr [Mass/Vol]184 mg/kBYxxz13-75BqaByyavx [place] HospitalGlucose [Mass/Vol]179 mg/dL Pszl10-97YxnOarsfu [place] HospitalGlucose [Mass/Vol]222 mg/bZBgda33-08WrnAimsor [facility] HospitalGlucose [Mass/Vol]303 mg/kTFhxk55-56LovSidkki [facility] MAGNESIUMon 13-58-0847Vdktfudjh [Mass/Vol]2.4 mg/dLNormal1.8-2.6[facility] HospitalComment on above:Performed By: #### CBC, BMP #### [facility] ([id number]) [address], [address] [place], [place] [address]Lmopiwcvp [Mass/Vol]1.9 mg/dLNormal1.8-2.6[facility] HospitalComment on above:Performed By: #### CBC, BMP #### [facility] ([id number]) [address], [address] [place], [place] [address]FCOCIPIULCex 11-83-8819Bwhnwxzms [Mass/Vol]3.2 mg/dLNormal 2.4-4.9[facility] HospitalComment on above:Performed By: #### CBC, BMP #### [facility] ([id number]) [address], [address] [place], [place] [address]AQQRZ METABOLIC PANLon 57-01-7441Xnrcs gap [Moles/Vol]6 mmol/L Normal5-15[facility] HospitalComment on above:Performed By: #### KENDALL MARTÍNEZ, , 2776-06 ####[facility] ([id number])[address], [place] [address]Rgpcnga [Mass/Vol]8.5 mg/dLNormal8.5-10.5[facility] HospitalComment on above:Performed By: #### KENDALL MARTÍNEZ, , 2776-06 ####[facility] ([id number])[address] [place], [place] [address]Rvvpbjok [Moles/Vol]102 mmol/ADnjcrk53-497WneEvvoxb [facility] HospitalComment on above:Performed By: #### KENDALL MARTÍNEZ, , 2776-06 ####[facility] ([id number])[address] [place] [address]WX0 [Moles/Vol] 26 mmol/MAniauq13-81LefEpswnx [place] HospitalComment on above:Performed By: #### KENDALL MARTÍNEZ, , 2776-06 ####[facility] ([id number])[address] [address], [place] [address]Symdacmnit [Mass/Vol]1.59 mg/dLHigh0.60-1.30 [facility] HospitalComment on above:Result Comment: METHOD TRACEABLE TO IDMS STANDARDPerformed By: #### KENDALL MARTÍNEZ, , 2776-06 ####[facility] ([id number])[address] [address] [place] [address]HGA/1.73 sq M.predicted among non-blacks MDRD (S/P/Bld) [Vol rate/Area]50 mL/min/{1.73_m2} Low>59[facility] HospitalComment on above:Result Comment: Reported eGFR is based on the CKD-EPI 2020 equation that does not use a race coefficient.Performed By: #### KENDALL MARTÍNEZ, , 2776-06 ####[facility] ([id number])[address] [address], [place] [address]Bkxljto [Mass/Vol]145 mg/hUSfqn00-79DyrStimjt [place] HospitalComment on above:Performed By: #### KENDALL MARTÍNEZ, , 2776-06 ####[facility] ([id number])[address] [address], [place] [address]Hylglvyqs [Moles/Vol] 3.9 mmol/LNormal3.5-5.0[facility] HospitalComment on above:Performed By: #### KENDALL MARTÍNEZ, , 2776-06 ####[facility] ([id number])[address] [address], [place] [address]Qyhdza [Moles/Vol]134 mmol/HUjkgwx814-961 [facility] HospitalComment on above:Performed By: #### KENDALL MARTÍNEZ, , 2776-06 ####[facility] ([id number])[address] [address]Cffu nitrogen [Mass/Vol]23 mg/dLNormal5-23[facility] HospitalComment on above:Performed By: #### KENDALL MARTÍNEZ, , 2776-06 ####[facility] ([id number])[address] [address] COMPLETE BLOOD COUNTon 19-06-9049Txtwrqrrsws distribution width (RBC) [Ratio] 24.9 %High11.5-15.0[facility] HospitalComment on above:Performed By: #### KENDALL MARTÍNEZ, , 2776-06 ####[facility] ([id number])[address], [place] [address]Ueksvztssa (Bld) [Volume fraction]24.5 %Low 39-49[facility] HospitalComment on above:Performed By: #### TANYA, BMP, , 2776-06 ####[facility] ([id number])[address], [address], [place] [address]Hkcdvbkgfk (Bld) [Mass/Vol]7.9 g/dLLow13.0-17.0 [facility] HospitalComment on above:Performed By: #### TANYA, BMP, , 2776-06 ####[facility] ([id number])[address], [address], [place] [address]ERS (RBC) [Entitic mass]25.4 doLmz98-05ZdmRpwbyu [facility] HospitalComment on above:Performed By: #### TANYA, BMP, , 2776-06 ####[facility] ([id number])[address], [address] [place] [address]TGAZ (RBC) [Mass/Vol]32.4 g/zVVbytpb12-10PztOrkhix [facility] HospitalComment on above: Performed By: #### TANYA, BMP, , 2776-06 ####[facility] ([id number])[address], [address] [place] [address]PHP (RBC) [Entitic vol]78 jQJqg46-209LufCsjdwm [facility] HospitalComment on above:Performed By: #### CBC, BMP, , 2776-06 ####[facility] ([id number])[address], [place] [address]Mnpocdze mean volume (Bld) [Entitic vol]9.1 fL Normal7-12[facility] HospitalComment on above:Performed By: #### TANYA, KENDALL, , 2776-06 ####[facility] ([id number])[address] [place] [address]Wckhbmdmi (Bld) [#/Vol]142 10*3/jZVng133-567NogAtxrhl [facility] HospitalComment on above:Performed By: #### TANYA, KENDALL, , 2776-06 ####[facility] ([id number])[address], [address] [place] [address]PWC COUNT3.14 X10E12/LLow4.10-5.70[facility] HospitalComment on above:Performed By: #### KENDALL MARTÍNEZ, , 2776-06 ####[facility] ([id number])[address], [address] [place] [address]FWC (Bld) [#/Vol]9.7 10*3/uLNormal4.0-11.0[facility] HospitalComment on above:Performed By: #### KENDALL MARTÍNEZ, , 2776-06 ####[facility] ([id number])[address], [address] [place] [address]Luqfxza Glucometer (BldC) [Mass/Vol]on 05-85-6838Spsjsse [Mass/Vol]168 mg/jXZfxi01-44ZjnJtrrcn Marina HospitalGlucose [Mass/Vol]245 mg/sWPvrh14-39OyjIpmxhj [facility] HospitalGlucose [Mass/Vol]155 mg/dL Fwvy71-88CwnHpeuwt [facility] HospitalGlucose [Mass/Vol]153 mg/jPUodr06-34UikTzgxua [facility] HospitalMAGNESIUMon 44-30-7851Cfbtoskvs [Mass/Vol]2.2 mg/dLNormal1.8-2.6 [facility] HospitalComment on above:Performed By: #### TANYA, BMP #### [facility] ([id number]) [address], [address] [place], [place] [address]Jhohubnyb [Mass/Vol]1.8 mg/dLNormal1.8-2.6[facility] HospitalComment on above:Performed By: #### CBC, BMP, , 2776-06 ####[facility] ([id number])[address], [address], [place] [address] PHOSPHORUSon 15-93-9399Ocyhmfmin [Mass/Vol]3.1 mg/dLNormal2.4-4.9[facility] HospitalComment on above:Performed By: #### CBC, BMP, , 2776-06 ####[facility] ([id number])[address], [address], [place] [address]YKYNZ METABOLIC PANLon 25-83-2358Gbpfz gap [Moles/Vol]9 mmol/LNormal5-15 [facility] HospitalComment on above:Performed By: #### CBC, 2639-3, BMP, 2156-11, , 2776-06 ####[facility] ([id number])[address], [place] [address]Gtpvfpg [Mass/Vol]8.4 mg/dLLow8.5-10.5 [facility] HospitalComment on above:Performed By: #### CBC, 2639-3, BMP, 2156-11, , 2776-06 ####[facility] ([id number])[address], [address], [place] [address]Qlcuooqx [Moles/Vol]104 mmol/BZmyhcm55-380 [facility] HospitalComment on above:Performed By: #### CBC, 2639-3, BMP, 2156-11, , 2776-06 ####[facility] ([id number])[address], [address], [place] [address]EY7 [Moles/Vol]25 mmol/APxqhtn94-37ZnhKtcqfkPremier Health Miami Valley HospitalComment on above:Performed By: #### TANYA, 2639-3, BMP, 2156-11, , 2776-06 ####[facility] ([id number])[address], [place] [address]Crtxlhzcrr [Mass/Vol]1.35 mg/dLHigh0.60-1.30[facility] HospitalComment on above:Result Comment: METHOD TRACEABLE TO IDMS STANDARDPerformed By: #### TANYA, 2639-3, BMP, 2156-11, , 2776-06 ####[facility] ([id number])[address], [place] [address] GFR/1.73 sq M.predicted among non-blacks MDRD (S/P/Bld) [Vol rate/Area]61 mL/min/{1.73_m2}Normal>59ProTrumbull Memorial HospitalComment on above:Result Comment: Reported eGFR is based on the CKD-EPI 2020 equation that does not use a race coefficient.Performed By: #### TANYA, 2639-3, BMP, 2156-11, , 2776-06 ####[facility] ([id number])[address] [address], [place] [address]Aukkblv [Mass/Vol]217 mg/jJNyol44-85VorLfxophCherrington Hospital Comment on above:Performed By: #### TANYA, 2639-3, BMP, 2156-11, , 2776-06 ####[facility] ([id number])[address] [address], [place] [address]Egjldillm [Moles/Vol]4.2 mmol/LNormal3.5-5.0[facility] Comment on above:Performed By: #### TANYA, 2639-3, BMP, 2156-11, , 2776-06 ####[facility] ([id number])[address], [place] [address]Cfoiyf [Moles/Vol]138 mmol/KGvazdg351-978JjuMalmyl [facility] HospitalComment on above:Performed By: #### CBC, 2639-3, BMP, 2156-11, , 2776-06 ####[facility] ([id number])[address], [place] [address]Ehyt nitrogen [Mass/Vol]23 mg/dLNormal5-23ProRiverview Health Instituteca [facility] HospitalComment on above: Performed By: #### CBC, 2639-3, BMP, 2156-11, , 2776-06 ####[facility] ([id number])[address], [place] [address]LR [Catalytic activity/Vol]on 36-44-8724MOG58 U/WKfjnva08-938XdlKceotk [place] HospitalComment on above:Performed By: #### 2157-6, 2638-3 ####[facility] ([id number])[address] [address], [place] [address]QCX35 U/EVqyhro09-164 [facility] HospitalComment on above:Performed By: #### CBC, 2639-3, BMP, 2156-11, , 2776-06 ####[facility] ([id number])[address] [address] [place], [place] [address]PIFHSLZN BLOOD COUNTon 34-04-4399Cilcevymlyx distribution width (RBC) [Ratio]24.9 %High11.5-15.0Pro[facility] Comment on above:Performed By: #### CBC, 2639-3, BMP, 2156-11, , 2776-06 ####[facility] ([id number])[address] [address] [place], [place] [address]Wymzntirnn (Bld) [Volume fraction]26.8 %Kpq08-84NraTgjuchCherrington Hospital Comment on above:Performed By: #### CBC, 2639-3, BMP, 2156-11, , 2776-06 ####[facility] ([id number])[address] [place] [address]Pctdlxmahm (Bld) [Mass/Vol]8.7 g/dLLow13.0-17.0[facility] Comment on above:Performed By: #### CBC, 2639-3, BMP, 2156-11, , 2776-06 ####[facility] ([id number])[address] [place] [address]YUT (RBC) [Entitic mass]24.8 reDuy37-79VwsBiqushTrumbull Memorial HospitalComment on above:Performed By: #### CBC, 2639-3, BMP, 2156-11, , 2776-06 ####[facility] ([id number])[address] [place] [address]UDUP (RBC) [Mass/Vol]32.6 g/wOZnhvca32-23BmzQeekjtCherrington HospitalComment on above: Performed By: #### CBC, 2639-3, BMP, 2156-11, , 2776-06 ####[facility] ([id number])[address] [place] [address]EXM (RBC) [Entitic vol]76 eNNqa29-592TxfCnrekrTrumbull Memorial HospitalComment on above:Performed By: #### CBC, 2639-3, BMP, 2156-11, , 2776-06 ####[facility] ([id number])[address], [address] [place] [address] 86233Zwzuiyti mean volume (Bld) [Entitic vol]9.3 fLNormal7-12PMercy Health Allen Hospitalo HospitalComment on above: Performed By: #### CBC, 2639-3, BMP, 2156-6, 10162-6, 2776- ####[facility] ([id number])[address], [address] [place] [address] 58315Vbegqkaak (Bld) [#/Vol]184 10*3/oSLipkik355-840OxkCecolc Marina HospitalComment on above: Performed By: #### CBC, 2639-3, BMP, 2156-6, 61374-2, 2776- ####[facility] ([id number])[address], [address] [place] [address] 40948MMM COUNT3.53 X10E12/LLow4.10-5.70ProRiverview Health Instituteca Brookfield HospitalComment on above:Performed By: #### CBC, 2639-3, BMP, 2156-, , 2776- ####[facility] ([id number])[address], [address] [place] [address] 07186XTC (Bld) [#/Vol]11.0 10*3/uLNormal4.0-11.0ProRiverview Health Instituteca Marina HospitalComment on above:Performed By: #### CBC, 2639-3, BMP, 2156-6, 61657-9, 2776-1 ####[facility] ([id number])[address], [address] [place] [address] 61239Dqwfauk Glucometer (BldC) [Mass/Vol]on 69-47-3984Jtnanzn [Mass/Vol]243 mg/vPGnkg17-06YfaMqtjkh Marina HospitalGlucose [Mass/Vol]184 mg/fNBzsj28-84KqkIprsoh Marina HospitalGlucose [Mass/Vol]199 mg/iHIczq65-22XhzNtybll Marina HospitalGlucose [Mass/Vol]218 mg/dL Keht90-32DixYvobzb Marina HospitalHeparin unfractionated Chromogenic method Qn (PPP)on 32-47-3886VVET XA UFH0.15 IU/mLLow0.30-0.70[facility] Comment on above:Result Comment: Optimal time for testing is 6 hrs post dosage This test is specific for monitoring patients on UFH, and is not recommended for use with other Anti-Xa medications.Performed By: #### 3274-8 ####[facility] ([id number])[address], [address], [place] [address]DFRPPJIODgf 11-09-2023 Magnesium [Mass/Vol]2.2 mg/dLNormal1.8-2.6ProTrumbull Memorial HospitalComment on above:Performed By: #### TANYA, 2639-3, BMP, 2156-11, , 7-1 ####[facility] ([id number])[address], [address], [place] [address] Myoglobin [Mass/Vol]on 57-12-7804XZMEP KZRWBELKT20.7 ng/mQXkypme84.4-105.7 Cherrington HospitalComment on above:Performed By: #### 2157-6, 9-3 ####[facility] ([id number])[address], [address], [place] [address]QINQV CMLXLECQE03.7 ng/fRQgztzr98.4-105.7Cherrington HospitalComment on above:Performed By: #### CBC, 2639-3, BMP, 2156-11, , 2776-1 ####[facility] ([id number])[address], [address] [place] [address] PHOSPHORUSon 49-89-7962Iaaxcoqxf [Mass/Vol]4.4 mg/dLNormal2.4-4.9ProTrumbull Memorial HospitalComment on above:Performed By: #### TANYA, 2639-3, BMP, 2156-11, , 7-1 ####[facility] ([id number])[address], [address], [place] [address]AJTHC METABOLIC PANLon 60-52-2445Uepzs gap [Moles/Vol]9 mmol/LNormal5-15ProTrumbull Memorial HospitalComment on above:Performed By: #### PINR #### [facility] ([id number]) [address], [address] [place], [place] [address]Vlzbtgu [Mass/Vol]8.4 mg/dLLow8.5-10.5PPremier Health [facility] Hospital Comment on above:Performed By: #### PINR #### [facility] ([id number]) [address], [address] [place], [place] [address]Zcagyojo [Moles/Vol]106 mmol/TGkwhii75-385SqxDfkach [place] HospitalComment on above:Performed By: #### PINR #### [facility] ([id number]) [address], [address] [place], [place] [address]ZI8 [Moles/Vol]24 mmol/IGwmayf39-85KdoVrkfhiPremier Health [facility] Comment on above:Performed By: #### PINR #### [facility] ([id number]) [address], [address] [place], [place] [address]Ffodkndcux [Mass/Vol]1.30 mg/dLNormal0.60-1.30ProTrumbull Memorial HospitalComment on above:Result Comment: METHOD TRACEABLE TO IDMS STANDARD Performed By: #### PINR #### [facility] ([id number]) [address] [facility] [address] [place], [place] [address]ZKU/1.73 sq M.predicted among non-blacks MDRD (S/P/Bld) [Vol rate/Area]64 mL/min/{1.73_m2}Normal>59ProTrumbull Memorial HospitalComment on above: Result Comment: Reported eGFR is based on the CKD-EPI 2020 equation that does not use a race coefficient.Performed By: #### PINR #### [facility] ([id number]) [address], [address] [place], [place] [address]Dbfbqns [Mass/Vol]163 mg/pUUmrc96-27TrqZlcoziTrumbull Memorial Hospital Comment on above:Performed By: #### PINR #### [facility] ([id number]) [address], [address] [place], [place] [address]Xieqcjzqo [Moles/Vol]4.1 mmol/LNormal3.5-5.0ProMedica [facility] HospitalComment on above:Performed By: #### PINR #### [facility] ([id number]) [address], [address] [place], [place] [address]Jyzpbs [Moles/Vol]139 mmol/CEcjxym922-835ZqwIbnqvy [place] HospitalComment on above:Performed By: #### PINR #### [facility] ([id number]) [address], [address] [place], [place] [address]Kkjl nitrogen [Mass/Vol]23 mg/dLNormal5-23ProRiverview Health Instituteca [facility] HospitalComment on above:Performed By: #### PINR #### [facility] ([id number]) [address], [address] [place], [place] [address]Rkvjc gap [Moles/Vol]9 mmol/LNormal5-15ProGal[facility] Hospital Hospital Comment on above:Performed By: #### CBC, BMP #### [facility] ([id number]) [address], [address] [place], [place] [address]Nasgjma [Mass/Vol]8.8 mg/dLNormal8.5-10.5ProMedica [facility] HospitalComment on above:Performed By: #### CBC, BMP #### [facility] ([id number]) [address], [address] [place], [place] [address]Glmoupws [Moles/Vol]104 mmol/BSwnmnw36-560LmlXpuodd [facility] HospitalComment on above:Performed By: #### TANYA, BMP #### [facility] ([id number]) [address], [address] [place], [place] [address]XD7 [Moles/Vol]25 mmol/JGuyckq58-47JfrNlbptkPremier Health [facility] Comment on above:Performed By: #### TANYA, BMP #### [facility] ([id number]) [address], [address] [place], [place] [address]Bpzptjkcrn [Mass/Vol]1.70 mg/dLHigh0.60-1.30ProTrumbull Memorial HospitalComment on above:Result Comment: METHOD TRACEABLE TO IDMS STANDARD Performed By: #### TANYA, BMP #### [facility] ([id number]) [address], [address] [place], [place] [address]AIO/1.73 sq M.predicted among non-blacks MDRD (S/P/Bld) [Vol rate/Area]46 mL/min/{1.73_m2}Low>59ProTrumbull Memorial HospitalComment on above: Result Comment: Reported eGFR is based on the CKD-EPI 2020 equation that does not use a race coefficient.Performed By: #### TANYA, BMP #### [facility] ([id number]) [address], [address] [place], [place] [address]Mgznvkv [Mass/Vol]111 mg/jZBtxc92-69FczKtcyyzTrumbull Memorial Hospital Comment on above:Performed By: #### TANYA, BMP #### [facility] ([id number]) [address], [address] [place], [place] [address]Mackmjzpj [Moles/Vol]3.8 mmol/LNormal3.5-5.0ProTrumbull Memorial HospitalComment on above:Performed By: #### TANYA, BMP #### [facility] ([id number]) [address], [address] [place], [place] [address]Hyzubu [Moles/Vol]138 mmol/UCketry663-247MsvZcigtg [facility] HospitalComment on above:Performed By: #### CBC, BMP #### [facility] ([id number]) [address], [address] [place], [place] [address]Ynot nitrogen [Mass/Vol]28 mg/dLHigh5-23ProMedica [facility] HospitalComment on above:Performed By: #### CBC, BMP #### [facility] ([id number]) [address], [address] [place], [place] [address]GS [Catalytic activity/Vol]on 86-63-5680UHC90 U/ZNrmjak49-461 [facility]field HospitalComment on above:Performed By: #### PINR #### [facility] ([id number]) [address], [facility] [address] [place], [place] [address]RLJETBQG BLOOD COUNTon 75-15-8202Tgvyzbrmnqa distribution width (RBC) [Ratio]24.8 %High11.5-15.0ProMedica Brookfield HospitalComment on above: Performed By: #### PINR #### [facility] ([id number]) [address], [address] [place], [place] [address]Zfbzcfexzo (Bld) [Volume fraction]29.3 %Qcs37-79PszZcpqfz [facility] HospitalComment on above:Performed By: #### PINR #### [facility] ([id number]) [address], [address] [place], [place] [address]Rdfaldgtyp (Bld) [Mass/Vol]9.6 g/dLLow13.0-17.0ProMedica [facility]field HospitalComment on above:Performed By: #### PINR #### [facility] ([id number]) [address], [address] [place], [place] [address]WCP (RBC) [Entitic mass]24.9 nlUpy02-63QyhJoghgr [facility] Comment on above:Performed By: #### PINR #### [facility] ([id number]) [address], [address] [place] [address]IGNG (RBC) [Mass/Vol]32.7 g/wXBkdjha66-84XejDqnlre [place] HospitalComment on above:Performed By: #### PINR #### [facility] ([id number]) [address], [address] [place] [address]OKH (RBC) [Entitic vol]76 bDWsl03-190TzmIzspukCherrington Hospital Comment on above:Performed By: #### PINR #### [facility] ([id number]) [address], [address] [place], [place] [address]Ynerupev mean volume (Bld) [Entitic vol]8.7 fLNormal7-12 [facility] HospitalComment on above:Performed By: #### PINR #### [facility] ([id number]) [address], [address] [place], [place] [address]Swhnmqbcb (Bld) [#/Vol]169 10*3/xLKyzxpi003-843VznKheuuf [facility] HospitalComment on above:Performed By: #### PINR #### [facility] ([id number]) [address], [address] [place] [address]TMW COUNT3.85 X10E12/LLow4.10-5.70[facility] Comment on above:Performed By: #### PINR #### [facility] ([id number]) [address], [address] [place], [place] [address]OQI (Bld) [#/Vol]13.5 10*3/uLHigh4.0-11.0[facility] HospitalComment on above:Performed By: #### PINR #### [facility] ([id number]) [address], [address] [place], [place] [address]Rqsvndzxkeg distribution width (RBC) [Ratio]25.2 %High11.5-15.0 [facility] HospitalComment on above:Performed By: #### CBC, BMP #### [facility] ([id number]) [address], [address] [place], [place] [address]Kudxqevmta (Bld) [Volume fraction]33.0 %Qov64-72XbcUquxbw [place] HospitalComment on above:Performed By: #### CBC, BMP #### [facility] ([id number]) [address], [address] [place], [place] [address]Zukuufhdcm (Bld) [Mass/Vol]10.8 g/dLLow13.0-17.0ProGalion Community Hospital HospitalComment on above:Performed By: #### CBC, BMP #### [facility] ([id number]) [address], [address] [place], [place] [address]HUW (RBC) [Entitic mass]25.0 ptAnh77-17RfzHzlysaCherrington Hospital Comment on above:Performed By: #### CBC, BMP #### [facility] ([id number]) [address], [address] [place], [place] [address]UZUM (RBC) [Mass/Vol]32.8 g/yVRkvhdz29-61MmhLahvuj [facility] HospitalComment on above:Performed By: #### CBC, BMP #### [facility] ([id number]) [address], [address] [place], [place] [address]EQV (RBC) [Entitic vol]76 bVImz77-606SwcWwmjzkCherrington Hospital Comment on above:Performed By: #### CBC, BMP #### [facility] ([id number]) [address], [address] [place], [place] [address]Zzmyevwp mean volume (Bld) [Entitic vol]8.8 fLNormal7-12 [facility] HospitalComment on above:Performed By: #### CBC, BMP #### [facility] ([id number]) [address], [address] [place], [place] [address]Zyjotxxje (Bld) [#/Vol]172 10*3/hOLxwcmf386-588VexSawrll [place] HospitalComment on above:Performed By: #### CBC, BMP #### [facility] ([id number]) [address], [address] [place] [address] COUNT4.33 X10E12/LNormal4.10-5.70[facility] Comment on above:Performed By: #### CBC, BMP #### [facility] ([id number]) [address], [address] [place] [address]BXE (Bld) [#/Vol]9.3 10*3/uLNormal4.0-11.0ProGalion Community Hospital HospitalComment on above:Performed By: #### CBC, BMP #### [facility] ([id number]) [address], [address] [place] [address]Vuyuhae Glucometer (BldC) [Mass/Vol]on 01-71-6274Hjfgnzw [Mass/Vol]162 mg/lDNvvt41-21CxjAcdtgz Marina HospitalGlucose [Mass/Vol]96 mg/dL Mnfozt16-65LvlYwjggv [facility] HospitalGlucose [Mass/Vol]142 mg/wUUflk05-37 [facility] HospitalGlucose [Mass/Vol]114 mg/xJWosp74-14FdtDcebzb [facility] HospitalLactate (P ekaterina) [Moles/Vol]on 48-46-3801CTZYTCH W/REFLEX1.0 mmol/LNormal 0.4-2.0ProTrumbull Memorial HospitalComment on above:Result Comment: Result did not trigger repeat Lactate, re-order if needed.Performed By: #### PINR #### [facility] ([id number]) [address], [address] [place] [address]PIHTWPVJLxm 74-02-7974Sunikilkg [Mass/Vol]1.7 mg/dLLow1.8-2.6 [facility] Hospitala [facility] HospitalComment on above:Performed By: #### PINR #### [facility] ([id number]) [address], [address] [place], [place] [address]Kvgwvzbmy [Mass/Vol]on 70-38-0537ERKTQ LQLHWNOBE34.1 ng/mLNormal 17.4-105.7[facility] HospitalComment on above:Performed By: #### PINR #### [facility] ([id number]) [address], [address] [place], [place] [address]JKNCEJMYNZwz 86-85-4156Jfsypywbh [Mass/Vol]4.0 mg/dLNormal 2.4-4.9ProRiverview Health Instituteca [facility] HospitalComment on above:Performed By: #### PINR #### [facility] ([id number]) [address], [address] [place], [place] [address]AJAHLFS AND INRon 16-22-7681ZGO Coag (PPP) [Relative time]1.3 {INR}High0.8-1.1ProMedKettering Health Dayton HospitalComment on above:Performed By: #### PINR #### [facility] ([id number]) [address], [address] [place] [address]YH Coag (PPP) [Time]14.7 sHigh9.8-13.2PAccess Hospital [facility] Comment on above:Performed By: #### PINR #### [facility] ([id number]) [address], [address] [place], [place] [address]CILLR CARDIACon 09-84-9698WVQHA'S TESTNormalProMedica Brookfield HospitalComment on above:Performed By: #### AFAB5 #### [facility] ([id number]) [address] [place], [place] [address]Yinn excess Calc (Bld) [Moles/Vol]0.1 mmol/LNormal0.0-2.0 [facility] HospitalComment on above:Performed By: #### AFAB5 #### [facility] ([id number]) [address] [place], [place] [address]Qejp diazonkhvmc88.6 [degF]Uhpuiw25.0[facility] Comment on above:Performed By: #### AFAB5 #### [facility] ([id number]) [address] [place], [place] [address]Nlpfmzh [Mass/Vol]117 mg/bGAahf82-02OnmKerggcCherrington Hospital Comment on above:Performed By: #### AFAB5 #### [facility] ([address] [place] [address]) [address] [place], [place] [address]QYA6 (Bld) [Moles/Vol]24.8 mmol/ZDzykhe73-79PycDkiudvTrumbull Memorial HospitalComment on above:Performed By: #### AFAB5 #### [facility] ([id number]) [address] [place], [place] [address]Yziupwlvks (Bld) [Volume fraction]31 %Syu24-29CmtMtygnpTrumbull Memorial HospitalComment on above:Performed By: #### AFAB5 #### [facility] ([id number]) [address] [place], [place] [address]Ddahnazukm (Bld) [Mass/Vol]10.2 g/dLLow13.0-17.0ProTrumbull Memorial HospitalComment on above:Performed By: #### AFAB5 #### [facility] ([id number]) [address] [place], [place] [address]DZVI. O2 CONC.100 %NormalProTrumbull Memorial HospitalComment on above:Performed By: #### AFAB5 #### [facility] ([id number]) [address] [place], [place] [address]MKPFDSN CALCIUM4.8 mg/dLNormal4.5-5.3PPremier Health [facility] Hospital Comment on above:Performed By: #### AFAB5 #### [facility] ([id number]) [address] [place], [place] [address]Swslak (Bld) [Partial pressure]167 mm[Hg]Yxuo53-874FsjBnjmkl [facility] HospitalComment on above:Performed By: #### AFAB5 #### [facility] ([id number]) [address] [place], [place] [address]Aglqew saturation in Mrwky212.8 %Normal>90Pro[facility] HospitalComment on above:Performed By: #### AFAB5 #### [facility] ([id number]) [address] [place], [place] [address]RUH[address].7 ZDJAHflusy93-29HelMzwowl [facility] HospitalComment on above:Performed By: #### AFAB5 #### [facility] ([id number]) [address] [place], [place] [address]vR (Bld)7.404 [pH]Normal7.350-7.450[facility] Comment on above:Performed By: #### AFAB5 #### [facility] ([id number]) [address] [place], [place] [address]Hahzvvdze [Moles/Vol]3.8 mmol/LNormal3.5-5.0[facility] HospitalComment on above:Performed By: #### AFAB5 #### [facility] ([id number]) [address] [place], [place] [address]XLOGMX SITEALINENormalProMedica Marina HospitalComment on above: Performed By: #### AFAB5 #### [facility] ([id number]) [address] [place], [place] [address]TXNVMW TYPEArterialNormalProMedica Marina HospitalComment on above:Performed By: #### AFAB5 #### [facility] ([id number]) [address] [place], [place] [address]HJJWM CARDIAC W/ NAon 87-18-2557WPOJN'S TESTNormalProMedica Brookfield HospitalComment on above:Performed By: #### PINR #### [facility] ([id number]) [address], [address] [place], [place] [address]Qizi excess Calc (Bld) [Moles/Vol]0.2 mmol/LNormal0.0-2.0 [facility] HospitalComment on above:Performed By: #### PINR #### [facility] ([id number]) [address], [address] [place], [place] [address]Keps .6 [degF]Hjfnky92.0[facility] Comment on above:Performed By: #### PINR #### [facility] ([id number]) [address] [place], [place] [address]Tcgxrza [Mass/Vol]125 mg/lXZkvi54-62RqyVkolgfCherrington Hospital Comment on above:Performed By: #### PINR #### [facility] ([id number]) [address] [place], [place] [address]FXP9 (Bld) [Moles/Vol]25.3 mmol/DNnvclv26-63MbhAwfdhq [place] HospitalComment on above:Performed By: #### PINR #### [facility] ([id number]) [address] [place], [place] [address]Bvwrekntlz (Bld) [Volume fraction]31 %Pfj17-88HqmRhphzr [place] HospitalComment on above:Performed By: #### PINR #### [facility] ([id number]) [address], [address] [place], [place] [address]Ckjhdktekz (Bld) [Mass/Vol]10.0 g/dLLow13.0-17.0ProGalion Community Hospital HospitalComment on above:Performed By: #### PINR #### [facility] ([id number]) [address], [address] [place], [place] [address]VJVE. O2 CONC.50 %NormalProMedica Brookfield HospitalComment on above:Performed By: #### PINR #### [facility] ([id number]) [address], [address] [place], [place] [address]NYCXMQH CALCIUM4.7 mg/dLNormal4.5-5.3[facility] Comment on above:Performed By: #### PINR #### [facility] ([id number]) [address], [address] [place], [place] [address]Unacvr (Bld) [Partial pressure]131 mm[Hg]Tyqj00-726MbjIomuxo [facility] HospitalComment on above:Performed By: #### PINR #### [facility] ([id number]) [address], [address] [place], [place] [address]Auyudu saturation in Blood99.9 %Normal>90Pro[facility] HospitalComment on above:Performed By: #### PINR #### [facility] ([id number]) [address], [address] [place], [place] [address]JGV057.7 WNMWOptcxc11-72EfsHuttrs [facility] HospitalComment on above:Performed By: #### PINR #### [facility] ([id number]) [address], [address] [place], [place] [address]iJ (Bld)7.381 [pH]Normal7.350-7.450ProRiverview Health Instituteca [facility] Comment on above:Performed By: #### PINR #### [facility] ([id number]) [address], [address] [place], [place] [address]Vihasbypi [Moles/Vol]3.7 mmol/LNormal3.5-5.0[facility] HospitalComment on above:Performed By: #### PINR #### [facility] ([id number]) [address] [place], [place] [address]PGRCOO SITEALINENormalProMedica Marina HospitalComment on above: Performed By: #### PINR #### [facility] ([id number]) [address] [place], [place] [address]NKCVSF TYPEArterialNormalProMedica Marina HospitalComment on above:Performed By: #### PINR #### [facility] ([id number]) [address] [place], [place] [address]Znmwua [Moles/Vol]139 mmol/BVcgxkf650-170GqzMowack Marina HospitalComment on above:Performed By: #### PINR #### [facility] ([id number]) [address], [address] [place], [place] [address]pRHO Coag (PPP) [Time]on 43-85-3480qCTN Coag (Bld) [Time]30 s Selmub35-17OdwTiffvy [facility] HospitalComment on above:Performed By: #### PINR #### [facility] ([id number]) [address] [place], [place] [address]Pragtpz Glucometer (BldC) [Mass/Vol]on 47-62-4951Pqrzawg [Mass/Vol]150 mg/uFFqmi14-73RpnSmndaq [facility] HospitalGlucose [Mass/Vol]58 mg/dL Flv52-43LceAkjpdf [facility] HospitalPOC JUEH0nd 39-90-0600Prprygdp [Moles/Vol]98 mmol/NZamevn05-893AblEpxixc [facility] HospitalComment on above:Performed By: #### IELGBC #### [facility] ([id number]) [address] [place], [place] [address]AG6 [Moles/Vol]31 mmol/SYcnfhw43-57WznQxgxrz [facility] Comment on above:Performed By: #### IELGBC #### [facility] ([id number]) [address] [place], [place] [address]Oahqafvogx [Mass/Vol]1.9 mg/dLHigh0.7-1.2PPremier Health Miami Valley HospitalComment on above:Result Comment: METHOD TRACEABLE TO IDMS STANDARD Performed By: #### IELGBC #### [facility] ([id number]) [address] [place], [place] [address]DKI/1.73 sq M.predicted among non-blacks MDRD (S/P/Bld) [Vol rate/Area]40 mL/min/{1.73_m2}Low>59Pro[facility] HospitalComment on above: Result Comment: Reported eGFR is based on the CKD-EPI 2020 equation that does not use a race coefficient.Performed By: #### IELGBC #### [facility] ([id number]) [address] [place], [place] [address]Urnwvpy [Mass/Vol]72 mg/rIKbrmts07-23LcyGfvxwn [facility] Comment on above:Performed By: #### IELGBC #### [facility] ([id number]) [address] [place], [place] [address]Uaikdrdxi [Moles/Vol]3.6 mmol/LNormal3.5-5.0ProTrumbull Memorial HospitalComment on above:Performed By: #### IELGBC #### [facility] ([id number]) [address] [place], [place] [address]Zrdwte [Moles/Vol]139 mmol/LJcbdks589-972ZxuIukhug [facility] HospitalComment on above:Performed By: #### IELGBC #### [facility] ([id number]) [address] [place], [place] [address]Yqld nitrogen [Mass/Vol]31 mg/dLHigh6-23ProTrumbull Memorial HospitalComment on above:Performed By: #### IELGBC #### [facility] ([id number]) [address] [place], [place] [address]GENAKTR AND INRon 87-69-2806RLE Coag (PPP) [Relative time]1.3 {INR}High0.8-1.1PPremier Health Miami Valley HospitalComment on above:Performed By: #### PINR #### [facility] ([id number]) [address], [address] [place], [place] [address]DU Coag (PPP) [Time]14.5 sHigh9.8-13.2PPremier Health [facility] Hospital Comment on above:Performed By: #### PINR #### [facility] ([id number]) [address], [address] [place], [place] [address]IWN [address] [place] 07-30-7166McrzvujrlaUK Healthcare Work Phone: Consent for Treatmenton 42-85-1797Lirugmk for [id number]#1.00TIFFCleveland Clinic Mercy HospitalHeart and Vascular Office/Clinic Noteon 40-37-9569Wpekp and Vascular Office/Clinic NoteChief Complaint F/U Testing [...] 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, right leg) [...] 0.4 mg= 1 tab(s), SubLingual, q5min, PRN Mason 325 mg-5 mg oral tablet, 1 tab(s), [...] BID, 11 refills (more content not included)...NormalFisher Lunenburg Medical CenterComment on above:Result Comment: Electronically Signed By: Mike Montes MD\.br\Date and Time Signed: 10/23/23 10:35 EDTUS PVR Lower EXT Complete Bilaton 06-32-2977WJ PVR Lower EXT Complete BilatExam Date/Time: 10/19/2023 [...] Christiano Guillen MD Transcribed by: HASEEB Technologist: [facility] Memorial HospitalCHEMISTRY Ordered By: SYSTEM SYSTEM on 92-64-2817Fhfcwtunml [Mass/Vol]1.6 mg/dLHigh0.5 - 1.3 mg/dLRemisol DmnfgLQJ31 mL/min/1.73 m2Low>=59mL/min/1.73 z9Tlhqcny ChemCTA Abd Aorto-bilat/ iliofemoral runoffon 13-44-9216HKH Abd Aorto-bilat/ iliofemoral runoffExam Date/Time: 10/19/2023 15:12 [...] Contrast: Isovue 370 Contrast amount in ml's: 150NoPremier HealthConsent for Treatmenton 90-21-3560Jcmazes for Treatment [id number]#1.00TIFSelect Medical Specialty Hospital - Cincinnati NorthCreatinineon 29-87-8288Lolciewtir [Mass/Vol]1.6 mg/dLHigh0.5-1.3Fisher [facility] CenterComment on above:Performed By: #### [id number] #### [facility] [address], [place] [address]Jgdjetzps Orderon 10-10-5058Fgwezpduc Order [id number]#1.00TIFSelect Medical Specialty Hospital - Cincinnati NortheGFRon 21-89-9851bEBK43 mL/min/1.73 m2Low>=59[facility] Comment on above:Order Comment: Order added by Discern Expert.Performed By: #### [id number] #### [facility] [address] [place], [place] [address]Uoneucy Progress Noteon 33-76-7738Zcmqdwu Progress Note [id number]#1.00TIFFNormIredell Memorial Hospitalthong [facility] Medical CenterPhysician Orderon 50-58-7000Emxudiqyj Order [id number]#1.00TIFFNoCritical access hospitalthong [facility] CenterPhysician [id number]#1.00TIFKristiadebayo Chatman [facility] Medical CenterBasophils Auto (Bld) [#/Vol]on 31-56-4762Zztuxrxzq (Bld) [#/Vol]0.0 10 3/uL0.0-0.1FOhioHealth Grant Medical CenterBasophils/100 WBC Auto (Bld)on 78-27-9768Fcfrfdbim/100 WBC (Bld)0.3 %0.2-2.0[facility] HospitalEosinophils/100 WBC Auto (Bld)on 38-84-6773Lswvszpxdsx/100 WBC (Bld)1.9 %0.9-7.0[facility] HospitalErythrocyte distribution width Auto (RBC) [Ratio]on 25-47-1130Mjejlcuzhuq distribution width (RBC) [Ratio]19.9 %High11.0-15.0[facility] HospitalEstimated glomerular filtration rate (GFR) non- Americanon 18-88-8420YHM/1.73 sq M.predicted among non- blacks MDRD (S/P/Bld) [Vol rate/Area]42 mL/min/{1.73_m2}Low>=60[facility] HospitalGlobulin Calc (S) [Mass/Vol]on 79-23-6554Ljssikdn (S) [Mass/Vol]4.3 g/dLGalion HospitalHematocrit Auto (Bld) [Volume fraction]on 79-18-9653Gbsavnhljk (Bld) [Volume fraction]28.3 %Low42.0-54.0 [facility] HospitalHemoglobin [Mass/volume] in Bloodon 10-06-2023 Hemoglobin (Bld) [Mass/Vol]8.4 g/dLLow14.0-18.0[facility] - Chemistry and Chemistry - challengeon 86-02-5530Bbqhifg [Mass/Vol] 2.1 g/dLLow3.4-5.0[facility] HospitalALP [Catalytic activity/Vol] 133 U/CTmif05-983CkdyhrynoGalion HospitalALT [Catalytic activity/Vol]18 U/S88-84RwhvscqnfGalion HospitalAST [Catalytic activity/Vol]20 U/L15-37 [facility] HospitalBilirubin [Mass/Vol]0.3 mg/dL0.2-1.0[facility] HospitalCalcium [Mass/Vol]9.4 mg/dL8.5-10.1FOhioHealth Grant Medical CenterChloride [Moles/Vol]103 mmol/Q81-089AtdgcsszjGalion HospitalCO2 [Moles/Vol]23.7 mmol/L21.0-32.0[facility] Creatinine [Mass/Vol]1.67 mg/dLHigh0.70-1.30[facility] GFR/1.73 sq M.predicted MDRD (S/P/Bld) [Vol rate/Area]52 mL/min/{1.73_m2}Low>=60 [facility] HospitalGlucose [Mass/Vol]91 mg/gS06-253UaypnzuspGalion HospitalMagnesium [Mass/Vol]1.6 mg/dLLow1.8-2.4FOhioHealth Grant Medical CenterPotassium [Moles/Vol]4.8 mmol/L3.5-5.1FOhioHealth Grant Medical CenterProtein [Mass/Vol]6.4 g/dL6.4-8.2FMary Rutan Hospitalodium [Moles/Vol]136 mmol/Z502-770OklbgpsaaGalion HospitalUrea nitrogen [Mass/Vol]29.0 mg/dLHigh7.0-18.0[facility] HospitalUrea nitrogen/Creatinine [Mass ratio]17.4 mg/mgGal[facility] - Hematology and Cell countson 80-22-9041UIZ (Bld) [Velocity]mm/hHigh <=20[facility] HospitalImmature granulocytes/100 WBC (Bld)1.5 % High0.0-0.5FOhioHealth Grant Medical CenterLeukocytes [#/volume] corrected for nucleated erythrocytes in Blood by Automated counon 69-43-6460BLU corrected for nucl RBC Auto (Bld) [#/Vol]11.6 10 3/uLHigh4.0-11.0[facility] HospitalLymphocytes Auto (Bld) [#/Vol]on 18-14-1821Khjfmqyvkbi (Bld) [#/Vol]1.5 10 3/uL1.2-3.8[facility] HospitalLymphocytes/100 WBC Auto (Bld)on 59-53-8417Rubiixzxdix/100 WBC (Bld)12.9 %Low20.5-60.0[facility] HospitalH Auto (RBC) [Entitic mass]on 82-71-7756XQS (RBC) [Entitic mass]22.5 pg Low25.9-34.0[facility] HospitalMCHC Auto (RBC) [Mass/Vol]on 58-56-2017NZOL (RBC) [Mass/Vol]29.7 g/dLLow29.9-35.2FOhioHealth Grant Medical CenterMCV Auto (RBC) [Entitic vol]on 76-88-6216JJE (RBC) [Entitic vol]75.9 fLLow 80.0-94.0[facility] HospitalMonocytes Auto (Bld) [#/Vol]on 19-40-5859Gvjapyvah (Bld) [#/Vol]1.3 10 3/uLHigh0.3-0.8[facility] HospitalMonocytes/100 WBC Auto (Bld)on 58-92-9136Fnwwaurcg/100 WBC (Bld) 10.9 %1.7-12.0[facility] HospitalNeutrophils Auto (Bld) [#/Vol]on 07-24-5065Bfdpwehgfie (Bld) [#/Vol]8.4 10 3/uLHigh1.4-6.5FOhioHealth Grant Medical CenterNeutrophils/100 WBC Auto (Bld)on 10-42-6027Audujvdsfxq/100 WBC (Bld)72.5 %43.0-75.0[facility] HospitalNo Panel Informationon 89-56-1421Klplpvskjfl # (Auto)0.2 10 3/uL0.0-0.7FOhioHealth Grant Medical CenterImmature Granulocyte # (Auto)0.17 10 3/uLHigh0.00-0.03[facility] HospitalPlatelet mean volume Auto (Bld) [Entitic vol]on 21-53-6118Epmyjbgw mean volume (Bld) [Entitic vol]10.3 fL9.5-13.5FOhioHealth Grant Medical Center Platelets Auto (Bld) [#/Vol]on 16-12-0267Ecehkpnug (Bld) [#/Vol]233 10 3/uL 150-450Gal[facility] HospitalRBC Auto (Bld) [#/Vol]on 99-04-8245XTN (Bld) [#/Vol]3.73 10 6/uLLow4.70-6.10[facility] Centererum or plasma albumin/globulin mass ratioon 36-44-3170Afzdbaw/Globulin [Mass ratio]0.5 {ratio}[facility] Centererum or plasma anion gap determination on 79-01-7423Efosc gap [Moles/Vol]14.1 mmol/LFOhioHealth Grant Medical Center Basophils Auto (Bld) [#/Vol]on 38-01-4046Vpojujwku (Bld) [#/Vol]0.1 10 3/uL 0.0-0.1FOhioHealth Grant Medical CenterBasophils/100 WBC Auto (Bld)on 30-14-8662Szwmccjff/100 WBC (Bld)0.6 %0.2-2.0[facility] Eosinophils/100 WBC Auto (Bld)on 95-68-1825Kbijedfgkjq/100 WBC (Bld)3.3 %0.9-7.0 [facility] HospitalErythrocyte distribution width Auto (RBC) [Ratio]on 86-77-2756Pbnupbvlcqe distribution width (RBC) [Ratio]19.6 %High 11.0-15.0[facility] HospitalEstimated glomerular filtration rate (GFR) non- Americanon 34-43-2890ETB/1.73 sq M.predicted among non-blacks MDRD (S/P/Bld) [Vol rate/Area]41 mL/min/{1.73_m2}Low>=60[facility] HospitalGlobulin Calc (S) [Mass/Vol]on 53-53-5257Smzxztrl (S) [Mass/Vol] 4.7 g/dLGalion HospitalHematocrit Auto (Bld) [Volume fraction] on 42-17-9334Bdbrhrmnyv (Bld) [Volume fraction]29.9 %Low42.0-54.0[facility] HospitalHemoglobin [Mass/volume] in Bloodon 28-82-8958Nhuijkezja (Bld) [Mass/Vol]9.0 g/dLLow14.0-18.0[facility] HospitalLaboratory - Chemistry and Chemistry - challengeon 51-69-1932Apfyzye [Mass/Vol]2.2 g/dLLow 3.4-5.0[facility] HospitalALP [Catalytic activity/Vol]140 U/LHigh 46-116[facility] HospitalALT [Catalytic activity/Vol]18 U/L16-63 [facility] HospitalAST [Catalytic activity/Vol]22 U/L15-37 [facility] HospitalBilirubin [Mass/Vol]0.5 mg/dL0.2-1.0[facility] HospitalCalcium [Mass/Vol]9.2 mg/dL8.5-10.1FOhioHealth Grant Medical CenterChloride [Moles/Vol]100 mmol/R70-690AyoevlmtiGalion HospitalCO2 [Moles/Vol]22.6 mmol/L21.0-32.0[facility] Creatinine [Mass/Vol]1.74 mg/dLHigh0.70-1.30[facility] GFR/1.73 sq M.predicted MDRD (S/P/Bld) [Vol rate/Area]49 mL/min/{1.73_m2}Low>=60 [facility] HospitalGlucose [Mass/Vol]162 mg/dFRglo28-863MjxaqwmquGalion HospitalMagnesium [Mass/Vol]1.7 mg/dLLow1.8-2.4FOhioHealth Grant Medical CenterPotassium [Moles/Vol]5.3 mmol/LHigh3.5-5.1FOhioHealth Grant Medical CenterProtein [Mass/Vol]6.9 g/dL6.4-8.2FOhioHealth Grant Medical Center Sodium [Moles/Vol]133 mmol/ZSdv079-383MhhfueqysGalion HospitalUrea nitrogen [Mass/Vol]30.0 mg/dLHigh7.0-18.0[facility] HospitalUrea nitrogen/Creatinine [Mass ratio]17.2 mg/mgGal[facility] Hospital Laboratory - Hematology and Cell countson 37-47-8978ZAM (Bld) [Velocity]130 mm/h High<=20[facility] HospitalImmature granulocytes/100 WBC (Bld)1.3 %High0.0-0.5FOhioHealth Grant Medical CenterLeukocytes [#/volume] corrected for nucleated erythrocytes in Blood by Automated counon 76-52-9657HPE corrected for nucl RBC Auto (Bld) [#/Vol]12.6 10 3/uLHigh4.0-11.0[facility] HospitalLymphocytes Auto (Bld) [#/Vol]on 75-34-0666Oepmaskpfon (Bld) [#/Vol]1.3 10 3/uL1.2-3.8[facility] HospitalLymphocytes/100 WBC Auto (Bld)on 68-56-8063Asncotszwhk/100 WBC (Bld)10.1 %Low20.5-60.0[facility] HospitalMCH Auto (RBC) [Entitic mass]on 90-94-4953MIR (RBC) [Entitic mass]22.7 pg Low25.9-34.0[facility] HospitalMCHC Auto (RBC) [Mass/Vol]on 39-22-6709LUSF (RBC) [Mass/Vol]30.1 g/dL29.9-35.2FOhioHealth Grant Medical CenterMCV Auto (RBC) [Entitic vol]on 14-01-6964OVY (RBC) [Entitic vol]75.3 fLLow 80.0-94.0[facility] HospitalMonocytes Auto (Bld) [#/Vol]on 47-74-8084Buiyfqvff (Bld) [#/Vol]1.4 10 3/uLHigh0.3-0.8[facility] HospitalMonocytes/100 WBC Auto (Bld)on 24-15-9677Ujojqenqr/100 WBC (Bld) 10.9 %1.7-12.0[facility] HospitalNeutrophils Auto (Bld) [#/Vol]on 08-59-2517Kfjiebcfuye (Bld) [#/Vol]9.3 10 3/uLHigh1.4-6.5FOhioHealth Grant Medical CenterNeutrophils/100 WBC Auto (Bld)on 57-62-0582Lsqjahhltjs/100 WBC (Bld)73.8 %43.0-75.0[facility] HospitalNo Panel Informationon 58-05-9760Xqowwqgpzzo # (Auto)0.4 10 3/uL0.0-0.7FOhioHealth Grant Medical CenterImmature Granulocyte # (Auto)0.16 10 3/uLHigh0.00-0.03[facility] HospitalPlatelet mean volume Auto (Bld) [Entitic vol]on 65-89-9461Bajodgog mean volume (Bld) [Entitic vol]11.3 fL9.5-13.5FOhioHealth Grant Medical Center Platelets Auto (Bld) [#/Vol]on 85-83-1303Buzkikdyl (Bld) [#/Vol]203 10 3/uL 150-450[facility] HospitalRBC Auto (Bld) [#/Vol]on 48-83-1036XQF (Bld) [#/Vol]3.97 10 6/uLLow4.70-6.10[facility] Centererum or plasma albumin/globulin mass ratioon 48-50-8703Zancroa/Globulin [Mass ratio]0.5 {ratio}[facility] Centererum or plasma anion gap determination on 76-10-6546Tpfyw gap [Moles/Vol]15.7 mmol/LFirelands Regional Medical Center Basophils Auto (Bld) [#/Vol]on 77-47-8151Qkyuqwaqq (Bld) [#/Vol]0.1 10 3/uL 0.0-0.1FOhioHealth Grant Medical CenterBasophils/100 WBC Auto (Bld)on 93-89-2058Eqlqkmcol/100 WBC (Bld)0.5 %0.2-2.0[facility] Eosinophils/100 WBC Auto (Bld)on 51-14-6617Ynwnwcvaana/100 WBC (Bld)3.6 %0.9-7.0 [facility] HospitalErythrocyte distribution width Auto (RBC) [Ratio]on 27-12-9941Lybjwikzbpk distribution width (RBC) [Ratio]19.6 %High 11.0-15.0[facility] HospitalEstimated glomerular filtration rate (GFR) non- Americanon 15-95-3719JUF/1.73 sq M.predicted among non-blacks MDRD (S/P/Bld) [Vol rate/Area]44 mL/min/{1.73_m2}Low>=60[facility] HospitalGlobulin Calc (S) [Mass/Vol]on 45-36-8210Ztunmtso (S) [Mass/Vol] 4.3 g/dLGalion HospitalHematocrit Auto (Bld) [Volume fraction] on 24-70-4226Nwuctslgbs (Bld) [Volume fraction]26.8 %Low42.0-54.0[facility] HospitalHemoglobin [Mass/volume] in Bloodon 78-19-6465Prwwtzmugs (Bld) [Mass/Vol]7.9 g/dLLow14.0-18.0[facility] HospitalLaboratory - Chemistry and Chemistry - challengeon 58-07-2129Hycrysn [Mass/Vol]1.9 g/dLLow 3.4-5.0[facility] HospitalALP [Catalytic activity/Vol]135 U/LHigh 46-116[facility] HospitalALT [Catalytic activity/Vol]16 U/L16-63 [facility] HospitalAST [Catalytic activity/Vol]19 U/L15-37 [facility] HospitalBilirubin [Mass/Vol]0.4 mg/dL0.2-1.0[facility] HospitalCalcium [Mass/Vol]7.8 mg/dLLow8.5-10.1FOhioHealth Grant Medical CenterChloride [Moles/Vol]102 mmol/W66-526ZjwqypimbGalion HospitalCO2 [Moles/Vol]25.0 mmol/L21.0-32.0[facility] Creatinine [Mass/Vol]1.61 mg/dLHigh0.70-1.30[facility] GFR/1.73 sq M.predicted MDRD (S/P/Bld) [Vol rate/Area]54 mL/min/{1.73_m2}Low>=60 [facility] HospitalGlucose [Mass/Vol]136 mg/mSUnxd56-384BnkeigeefGalion HospitalMagnesium [Mass/Vol]1.7 mg/dLLow1.8-2.4FOhioHealth Grant Medical CenterPotassium [Moles/Vol]5.1 mmol/L3.5-5.1FOhioHealth Grant Medical CenterProtein [Mass/Vol]6.2 g/dLLow6.4-8.2FOhioHealth Grant Medical Center Sodium [Moles/Vol]134 mmol/FRgo223-121WorzjhsafGalion HospitalUrea nitrogen [Mass/Vol]25.0 mg/dLHigh7.0-18.0[facility] HospitalUrea nitrogen/Creatinine [Mass ratio]15.5 mg/mgGal[facility] Hospital Laboratory - Hematology and Cell countson 48-90-4823HVQ (Bld) [Velocity]117 mm/h High<=20[facility] HospitalImmature granulocytes/100 WBC (Bld)0.9 %High0.0-0.5FOhioHealth Grant Medical CenterLeukocytes [#/volume] corrected for nucleated erythrocytes in Blood by Automated counon 90-16-0293DIO corrected for nucl RBC Auto (Bld) [#/Vol]11.5 10 3/uLHigh4.0-11.0[facility] HospitalLymphocytes Auto (Bld) [#/Vol]on 00-91-2786Dmlgkxncvqb (Bld) [#/Vol]1.3 10 3/uL1.2-3.8[facility] HospitalLymphocytes/100 WBC Auto (Bld)on 01-81-7123Exjvjxhzzqj/100 WBC (Bld)10.9 %Low20.5-60.0[facility] HospitalH Auto (RBC) [Entitic mass]on 05-26-8417SQM (RBC) [Entitic mass]22.4 pg Low25.9-34.0[facility] HospitalHC Auto (RBC) [Mass/Vol]on 13-59-3455EGMR (RBC) [Mass/Vol]29.5 g/dLLow29.9-35.2FWright-Patterson Medical CenterV Auto (RBC) [Entitic vol]on 08-99-7815FEQ (RBC) [Entitic vol]75.9 fLLow 80.0-94.0[facility] HospitalMonocytes Auto (Bld) [#/Vol]on 60-75-9011Iswktcvxn (Bld) [#/Vol]1.4 10 3/uLHigh0.3-0.8[facility] HospitalMonocytes/100 WBC Auto (Bld)on 51-58-9246Sfmakjvlz/100 WBC (Bld) 12.4 %High1.7-12.0[facility] HospitalNeutrophils Auto (Bld) [#/Vol]on 54-66-0319Fglrmqtahec (Bld) [#/Vol]8.3 10 3/uLHigh1.4-6.5FOhioHealth Grant Medical CenterNeutrophils/100 WBC Auto (Bld)on 10-04-2023 Neutrophils/100 WBC (Bld)71.7 %43.0-75.0[facility] HospitalNo Panel Informationon 81-21-9408Uupgpfdwmzd # (Auto)0.4 10 3/uL0.0-0.7FOhioHealth Grant Medical CenterImmature Granulocyte # (Auto)0.10 10 3/uLHigh0.00-0.03 [facility] HospitalPlatelet mean volume Auto (Bld) [Entitic vol]on 60-33-9136Oazxgnpo mean volume (Bld) [Entitic vol]11.5 fL9.5-13.5FOhioHealth Grant Medical CenterPlatelets Auto (Bld) [#/Vol]on 81-22-6594Knrwpyvmd (Bld) [#/Vol]154 10 3/lS186-654NuacarfecGalion HospitalRBC Auto (Bld) [#/Vol] on 11-31-6731KRY (Bld) [#/Vol]3.53 10 6/uLLow4.70-6.10[facility] Centererum or plasma albumin/globulin mass ratioon 32-59-7632Zrflrjw/Globulin [Mass ratio]0.4 {ratio}[facility] Centererum or plasma anion gap determinationon 89-94-8609Lntbq gap [Moles/Vol]12.1 mmol/LFOhioHealth Grant Medical CenterBasophils Auto (Bld) [#/Vol]on 89-24-7711Rvczacqke (Bld) [#/Vol] 0.1 10 3/uL0.0-0.1FOhioHealth Grant Medical CenterBasophils/100 WBC Auto (Bld) on 20-99-3585Xgpuffqks/100 WBC (Bld)0.7 %0.2-2.0[facility] HospitalEosinophils/100 WBC Auto (Bld)on 73-09-0806Fwwzsuyrbdi/100 WBC (Bld)2.7 % 0.9-7.0[facility] HospitalErythrocyte distribution width Auto (RBC) [Ratio]on 92-20-7780Edexevsgzsp distribution width (RBC) [Ratio]19.2 %High 11.0-15.0[facility] HospitalEstimated glomerular filtration rate (GFR) non- Americanon 03-44-6582RHU/1.73 sq M.predicted among non-blacks MDRD (S/P/Bld) [Vol rate/Area]46 mL/min/{1.73_m2}Low>=60[facility] HospitalGlobulin Calc (S) [Mass/Vol]on 77-05-5734Zhxoavem (S) [Mass/Vol] 4.1 g/dLGalion HospitalHematocrit Auto (Bld) [Volume fraction] on 02-39-5811Vrnafjggjs (Bld) [Volume fraction]26.4 %Low42.0-54.0[facility] HospitalHemoglobin [Mass/volume] in Bloodon 85-07-6093Bicikaqnip (Bld) [Mass/Vol]8.1 g/dLLow14.0-18.0[facility] HospitalLaboratory - Chemistry and Chemistry - challengeon 78-26-9654Gsrmrbp [Mass/Vol]1.9 g/dLLow 3.4-5.0[facility] HospitalALP [Catalytic activity/Vol]140 U/LHigh 46-116[facility] HospitalALT [Catalytic activity/Vol]17 U/L16-63 [facility]AST [Catalytic activity/Vol]21 U/L15-37 [facility] HospitalBilirubin [Mass/Vol]0.3 mg/dL0.2-1.0[facility] HospitalCalcium [Mass/Vol]6.7 mg/dLLow8.5-10.1FOhioHealth Grant Medical CenterChloride [Moles/Vol]101 mmol/W36-692RillgsreiGalion HospitalCO2 [Moles/Vol]23.9 mmol/L21.0-32.0[facility] Creatinine [Mass/Vol]1.57 mg/dLHigh0.70-1.30[facility] GFR/1.73 sq M.predicted MDRD (S/P/Bld) [Vol rate/Area]55 mL/min/{1.73_m2}Low>=60 [facility] HospitalGlucose [Mass/Vol]142 mg/tRYnnp77-155OiuaufowfGalion HospitalMagnesium [Mass/Vol]1.3 mg/dLLow1.8-2.4FOhioHealth Grant Medical CenterPotassium [Moles/Vol]4.8 mmol/L3.5-5.1FOhioHealth Grant Medical CenterProtein [Mass/Vol]6.0 g/dLLow6.4-8.2FOhioHealth Grant Medical Center Sodium [Moles/Vol]134 mmol/TVue532-985JxbppoiraGalion HospitalUrea nitrogen [Mass/Vol]23.0 mg/dLHigh7.0-18.0[facility] HospitalUrea nitrogen/Creatinine [Mass ratio]14.6 mg/mgGal[facility] Hospital Laboratory - Hematology and Cell countson 81-86-1417ATR (Bld) [Velocity]mm/hHigh <=20[facility] HospitalImmature granulocytes/100 WBC (Bld)1.0 % High0.0-0.5FOhioHealth Grant Medical CenterLeukocytes [#/volume] corrected for nucleated erythrocytes in Blood by Automated counon 69-04-1201LKU corrected for nucl RBC Auto (Bld) [#/Vol]11.6 10 3/uLHigh4.0-11.0[facility] HospitalLymphocytes Auto (Bld) [#/Vol]on 01-76-1689Vcxzuhslvln (Bld) [#/Vol]1.4 10 3/uL1.2-3.8[facility] HospitalLymphocytes/100 WBC Auto (Bld)on 28-18-3180Avadtkmprjq/100 WBC (Bld)12.1 %Low20.5-60.0[facility] HospitalH Auto (RBC) [Entitic mass]on 92-07-3450TRX (RBC) [Entitic mass]23.2 pg Low25.9-34.0[facility] HospitalMCHC Auto (RBC) [Mass/Vol]on 74-70-4825ICEN (RBC) [Mass/Vol]30.7 g/dL29.9-35.2FOhioHealth Grant Medical CenterMCV Auto (RBC) [Entitic vol]on 30-08-8996IHY (RBC) [Entitic vol]75.6 fLLow 80.0-94.0[facility] HospitalMonocytes Auto (Bld) [#/Vol]on 60-01-0681Eyijyawnb (Bld) [#/Vol]1.3 10 3/uLHigh0.3-0.8[facility] HospitalMonocytes/100 WBC Auto (Bld)on 88-24-3565Guwloegrz/100 WBC (Bld) 10.8 %1.7-12.0[facility] HospitalNeutrophils Auto (Bld) [#/Vol]on 97-07-4600Znwxujkraqf (Bld) [#/Vol]8.5 10 3/uLHigh1.4-6.5FOhioHealth Grant Medical CenterNeutrophils/100 WBC Auto (Bld)on 64-40-8757Hafhchtxzqf/100 WBC (Bld)72.7 %43.0-75.0[facility] HospitalNo Panel Informationon 85-24-3637Glfhkqptlud # (Auto)0.3 10 3/uL0.0-0.7FOhioHealth Grant Medical CenterImmature Granulocyte # (Auto)0.12 10 3/uLHigh0.00-0.03[facility] HospitalPlatelet mean volume Auto (Bld) [Entitic vol]on 15-56-9822Zhwslmth mean volume (Bld) [Entitic vol]11.3 fL9.5-13.5FOhioHealth Grant Medical Center Platelets Auto (Bld) [#/Vol]on 61-95-0055Lvfmbzemy (Bld) [#/Vol]141 10 3/uLLow 150-450[facility] HospitalRBC Auto (Bld) [#/Vol]on 53-48-6682MTK (Bld) [#/Vol]3.49 10 6/uLLow4.70-6.10[facility] Centererum or plasma albumin/globulin mass ratioon 53-87-1558Xoajxex/Globulin [Mass ratio]0.5 {ratio}[facility] Centererum or plasma anion gap determination on 92-77-0604Pymby gap [Moles/Vol]13.9 mmol/LFOhioHealth Grant Medical Center Basophils Auto (Bld) [#/Vol]on 36-71-2721Kwhynwyxg (Bld) [#/Vol]0.0 10 3/uL 0.0-0.1FOhioHealth Grant Medical CenterBasophils/100 WBC Auto (Bld)on 89-85-9834Mzqkrqvcp/100 WBC (Bld)0.4 %0.2-2.0[facility] Eosinophils/100 WBC Auto (Bld)on 69-39-6046Eyicusvnthw/100 WBC (Bld)2.2 %0.9-7.0 [facility] HospitalErythrocyte distribution width Auto (RBC) [Ratio]on 23-05-0944Yfhoftzlysj distribution width (RBC) [Ratio]19.3 %High 11.0-15.0[facility] HospitalEstimated glomerular filtration rate (GFR) non- Americanon 55-11-4929NNZ/1.73 sq M.predicted among non-blacks MDRD (S/P/Bld) [Vol rate/Area]41 mL/min/{1.73_m2}Low>=60[facility] HospitalGlobulin Calc (S) [Mass/Vol]on 98-00-8934Ykremytq (S) [Mass/Vol] 4.2 g/dLGalion HospitalHematocrit Auto (Bld) [Volume fraction] on 46-67-3225Otvwqvurqo (Bld) [Volume fraction]26.1 %Low42.0-54.0[facility] HospitalHemoglobin [Mass/volume] in Bloodon 61-39-3970Rgslhsrxip (Bld) [Mass/Vol]7.8 g/dLLow14.0-18.0[facility] HospitalLaboratory - Chemistry and Chemistry - challengeon 97-99-3205Bwpdnwk [Mass/Vol]2.1 g/dLLow 3.4-5.0[facility] HospitalALP [Catalytic activity/Vol]131 U/LHigh 46-116[facility] HospitalALT [Catalytic activity/Vol]17 U/L16-63 [facility]AST [Catalytic activity/Vol]13 U/UIya07-90 [facility] HospitalBilirubin [Mass/Vol]0.3 mg/dL0.2-1.0[facility] HospitalCalcium [Mass/Vol]6.6 mg/dLLow8.5-10.1FOhioHealth Grant Medical CenterChloride [Moles/Vol]105 mmol/B30-815UmrzmfimxGalion HospitalCO2 [Moles/Vol]24.3 mmol/L21.0-32.0[facility] Creatinine [Mass/Vol]1.72 mg/dLHigh0.70-1.30[facility] GFR/1.73 sq M.predicted MDRD (S/P/Bld) [Vol rate/Area]50 mL/min/{1.73_m2}Low>=60 [facility] HospitalGlucose [Mass/Vol]156 mg/nLUzau43-376BtvpblwbnGalion HospitalMagnesium [Mass/Vol]1.5 mg/dLLow1.8-2.4FOhioHealth Grant Medical CenterPotassium [Moles/Vol]4.0 mmol/L3.5-5.1FOhioHealth Grant Medical CenterProtein [Mass/Vol]6.3 g/dLLow6.4-8.2FOhioHealth Grant Medical Center Sodium [Moles/Vol]139 mmol/X052-862BnurvbnczGalion HospitalUrea nitrogen [Mass/Vol]27.0 mg/dLHigh7.0-18.0[facility] HospitalUrea nitrogen/Creatinine [Mass ratio]15.7 mg/mgGalion Hospital Laboratory - Hematology and Cell countson 96-03-5190Eftceumu granulocytes/100 WBC (Bld)0.4 %0.0-0.5FOhioHealth Grant Medical CenterESR (Bld) [Velocity]110 mm/hHigh<=20[facility] HospitalLaboratory - Microbiology and Antimicrobial susceptibilityOrdered By: Truman Bryant on 48-71-2480Jjizupvjehr observation Gram stain Nom (Unsp spec)[facility] Leukocytes [#/volume] corrected for nucleated erythrocytes in Blood by Automated counon 58-49-3683WHB corrected for nucl RBC Auto (Bld) [#/Vol]8.5 10 3/uL 4.0-11.0[facility] HospitalLymphocytes Auto (Bld) [#/Vol]on 26-87-6140Nfmahhqujcz (Bld) [#/Vol]1.5 10 3/uL1.2-3.8[facility] HospitalLymphocytes/100 WBC Auto (Bld)on 02-57-4231Wuakwlmtesy/100 WBC (Bld)17.3 % Low20.5-60.0[facility] HospitalMC Auto (RBC) [Entitic mass]on 65-72-9562BTJ (RBC) [Entitic mass]22.5 pgLow25.9-34.0[facility] HospitalMCHC Auto (RBC) [Mass/Vol]on 85-70-9923MJSI (RBC) [Mass/Vol]29.9 g/dL 29.9-35.2FOhioHealth Grant Medical CenterMCV Auto (RBC) [Entitic vol]on 92-62-4036BYL (RBC) [Entitic vol]75.2 fLLow80.0-94.0[facility] HospitalMonocytes Auto (Bld) [#/Vol]on 00-52-1720Aycytdnfo (Bld) [#/Vol]0.8 10 3/uL0.3-0.8[facility] HospitalMonocytes/100 WBC Auto (Bld)on 33-91-4834Tiqxdlycy/100 WBC (Bld)9.1 %1.7-12.0[facility] Neutrophils Auto (Bld) [#/Vol]on 71-93-4746Kijmsrtdcur (Bld) [#/Vol]6.0 10 3/uL 1.4-6.5FOhioHealth Grant Medical CenterNeutrophils/100 WBC Auto (Bld)on 11-34-8260Uxapiuwphzc/100 WBC (Bld)70.6 %43.0-75.0[facility] HospitalNo Panel Informationon 63-26-0298Qqlqyqjawkl # (Auto)0.2 10 3/uL0.0-0.7 [facility] HospitalImmature Granulocyte # (Auto)0.03 10 3/uL 0.00-0.03[facility] HospitalFungal Smear ResultGalion HospitalMiscellaneous Test CommentSee commentGalion HospitalComment on above:Specimen Source: FOOTRT - Foot Right - Foot Rt - 604.000 No Panel InformationOrdered By: Truman Bryant on 56-50-1096Ahfmxh CultureGalion HospitalNo Panel InformationOrdered By: Paula Soto on 88-67-8533Wumz Fast SmearGalion HospitalAFB Specimen ProcessingGalion HospitalPlatelet mean volume Auto (Bld) [Entitic vol]on 94-74-1634Vdpeodnr mean volume (Bld) [Entitic vol]10.6 fL 9.5-13.5FOhioHealth Grant Medical CenterPlatelets Auto (Bld) [#/Vol]on 06-32-6812Sisxfplvd (Bld) [#/Vol]142 10 3/wXVjm320-857HynlkyturGalion HospitalRBC Auto (Bld) [#/Vol]on 78-31-6345AUG (Bld) [#/Vol]3.47 10 6/uLLow 4.70-6.10[facility] Centererum or plasma albumin/globulin mass ratioon 94-41-6364Hathhkc/Globulin [Mass ratio]0.5 {ratio}[facility] Centererum or plasma anion gap determinationon 13-93-9304Gmxym gap [Moles/Vol]13.7 mmol/LFOhioHealth Grant Medical CenterBasophils Auto (Bld) [#/Vol]on 38-28-9366Fviibvunl (Bld) [#/Vol]0.0 10 3/uL0.0-0.1FOhioHealth Grant Medical CenterBasophils/100 WBC Auto (Bld)on 89-72-1196Irkucretd/100 WBC (Bld) 0.4 %0.2-2.0[facility] HospitalEosinophils/100 WBC Auto (Bld)on 05-01-5459Euurfdfxnow/100 WBC (Bld)1.7 %0.9-7.0[facility] Erythrocyte distribution width Auto (RBC) [Ratio]on 36-03-8161Rxxclzlyadk distribution width (RBC) [Ratio]18.5 %High11.0-15.0[facility] HospitalEstimated glomerular filtration rate (GFR) non- Americanon 17-26-3033RWU/1.73 sq M.predicted among non-blacks MDRD (S/P/Bld) [Vol rate/Area]27 mL/min/{1.73_m2}Low>=60[facility] HospitalGlobulin Calc (S) [Mass/Vol]on 65-98-7109Bzghpryy (S) [Mass/Vol]4.0 g/dLGalion HospitalHematocrit Auto (Bld) [Volume fraction]on 10-01-2023 Hematocrit (Bld) [Volume fraction]26.5 %Low42.0-54.0[facility] HospitalHemoglobin [Mass/volume] in Bloodon 73-79-2411Qqzakowahf (Bld) [Mass/Vol] 8.0 g/dLLow14.0-18.0[facility] HospitalLaboratory - Chemistry and Chemistry - challengeon 88-73-6156Qvgmspg [Moles/Vol]1.8 mmol/L0.4-2.0[facility] HospitalAlbumin [Mass/Vol]1.9 g/dLLow3.4-5.0[facility] HospitalALP [Catalytic activity/Vol]113 U/A21-373EfhvokwtnGalion HospitalALT [Catalytic activity/Vol]17 U/N16-48TvwrodyttGalion HospitalAST [Catalytic activity/Vol]14 U/SQrk89-38HknzlhcthGalion HospitalBilirubin [Mass/Vol]0.3 mg/dL0.2-1.0[facility] Calcium [Mass/Vol]5.7 mg/dLLow8.5-10.1FOhioHealth Grant Medical CenterComment on above:RESULTS CALLED TO Moncho Tsang)@BY Marybel Hawkins MLT at 0619 Chloride [Moles/Vol]102 mmol/R60-366JpltpzaniGalion HospitalCO2 [Moles/Vol]20.4 mmol/LLow21.0-32.0[facility] HospitalCreatinine [Mass/Vol]2.46 mg/dLHigh0.70-1.30[facility] HospitalGFR/1.73 sq M.predicted MDRD (S/P/Bld) [Vol rate/Area]33 mL/min/{1.73_m2}Low>=60[facility] HospitalGlucose [Mass/Vol]67 mg/rMBte81-315BfwdjaeazGalion HospitalMagnesium [Mass/Vol]0.8 mg/dLLow1.8-2.4FOhioHealth Grant Medical CenterComment on above:RESULTS CALLED TO Moncho CORREA)@BY SOFIYA [address] at 0601Potassium [Moles/Vol]3.1 mmol/LLow3.5-5.1FOhioHealth Grant Medical CenterProtein [Mass/Vol]5.9 g/dLLow6.4-8.2FMary Rutan Hospitalodium [Moles/Vol]138 mmol/B184-220WnfeshosyGalion HospitalUrea nitrogen [Mass/Vol]28.0 mg/dLHigh7.0-18.0[facility] HospitalUrea nitrogen/Creatinine [Mass ratio]11.4 mg/mgGalion HospitalLaboratory - Hematology and Cell countson 19-16-5021RFQ (Bld) [Velocity]96 mm/hHigh<=20[facility] HospitalImmature granulocytes/100 WBC (Bld)0.6 %High0.0-0.5FOhioHealth Grant Medical CenterLeukocytes [#/volume] corrected for nucleated erythrocytes in Blood by Automated counon 59-27-6535VSO corrected for nucl RBC Auto (Bld) [#/Vol]10.0 10 3/uL4.0-11.0[facility] HospitalLymphocytes Auto (Bld) [#/Vol]on 32-83-1516Nhzlkayaxey (Bld) [#/Vol]1.3 10 3/uL1.2-3.8[facility] HospitalLymphocytes/100 WBC Auto (Bld)on 79-24-8754Ffgvbibyigd/100 WBC (Bld)12.8 %Low20.5-60.0[facility] HospitalH Auto (RBC) [Entitic mass]on 32-09-9506XIS (RBC) [Entitic mass]22.4 pgLow25.9-34.0[facility] HospitalMCHC Auto (RBC) [Mass/Vol]on 16-89-1914EHBR (RBC) [Mass/Vol]30.2 g/dL29.9-35.2FOhioHealth Grant Medical CenterMCV Auto (RBC) [Entitic vol]on 65-02-8502GQF (RBC) [Entitic vol]74.2 fLLow80.0-94.0[facility] HospitalMonocytes Auto (Bld) [#/Vol]on 10-31-1916Zeieoejyr (Bld) [#/Vol]0.7 10 3/uL0.3-0.8[facility] HospitalMonocytes/100 WBC Auto (Bld)on 53-14-0678Azkaewsst/100 WBC (Bld)6.9 %1.7-12.0[facility] HospitalNeutrophils Auto (Bld) [#/Vol]on 42-75-7289Bopbxoqmnss (Bld) [#/Vol]7.8 10 3/uLHigh1.4-6.5FOhioHealth Grant Medical CenterNeutrophils/100 WBC Auto (Bld)on 10-01-2023 Neutrophils/100 WBC (Bld)77.6 %High43.0-75.0[facility] HospitalNo Panel Informationon 20-20-2414F-Reactive Protein, Kgwprmdhhqag53.58 mg/dLHigh <=0.50[facility] HospitalEosinophils # (Auto)0.2 10 3/uL0.0-0.7 [facility] HospitalImmature Granulocyte # (Auto)0.06 10 3/uLHigh 0.00-0.03[facility] HospitalTroponin I High Sensitivity8.3 pg/mL 4.0-76.1FOhioHealth Grant Medical CenterComment on above:CUT-OFF POINTS HAVE BEEN [...] AND CLINICAL INFORMATION.Venous Blood Partial Pressure CO230.4 mm[Hg]Low40.0-52.0[facility] Venous Blood pH7.4217.330-7.430[facility] HospitalPlatelet mean volume Auto (Bld) [Entitic vol]on 04-78-9971Vehfiqyn mean volume (Bld) [Entitic vol]11.2 fL9.5-13.5FOhioHealth Grant Medical CenterPlatelets Auto (Bld) [#/Vol] on 27-51-9190Ymevcgjcq (Bld) [#/Vol]164 10 3/zF321-794CvhrjpspbGalion HospitalRBC Auto (Bld) [#/Vol]on 79-23-1283OCC (Bld) [#/Vol]3.57 10 6/uLLow 4.70-6.10[facility] Medical Centererum or plasma albumin/globulin mass ratioon 06-13-3648Uksbjsb/Globulin [Mass ratio]0.5 {ratio}[facility] Centererum or plasma anion gap determinationon 65-98-7583Jmhfh gap [Moles/Vol]18.7 mmol/LFOhioHealth Grant Medical CenterAutomated epithelial cells count in urine sediment (number/area)on 18-09-1452Rawtgabges cells Auto (Urine sed) [#/Area]NONE SEEN #/LPFNONE/RAREGalion Hospital Automated leukocytes count in urine sediment (number/area)on 79-20-9681HJK Auto (Urine sed) [#/Area]NONE SEEN #/HPF0-2FOhioHealth Grant Medical CenterAutomated urine specific gravity by refractometryon 56-16-8134Ioqdvckp gravity Refractometry automated (U) [Rel density]<=1.743Qbndjnag9.005-1.025[facility] HospitalBasophils Auto (Bld) [#/Vol]on 37-30-2175Ntsnltvsq (Bld) [#/Vol]0.1 10 3/uL0.0-0.1FOhioHealth Grant Medical CenterBasophils/100 WBC Auto (Bld)on 01-06-7645Pshtwjcqd/100 WBC (Bld)0.4 %0.2-2.0[facility] HospitalBilirubin Auto test strip (U) [Mass/Vol]on 59-67-9419Jesovvbei (U) [Mass/Vol]NegativeNEGATIVEGalion HospitalCast typing in urine sediment by light microscopyon 83-67-9481Ftjxc LM Nom (Urine sed)NONE SEEN #/LPFNONE SEENGalion HospitalColor Auto (U)on 03-08-4762Yetnd (U)LT. YELLOWYELLOWGalion HospitalEosinophils/100 WBC Auto (Bld)on 46-10-8924Vqilibjgikb/100 WBC (Bld)1.4 %0.9-7.0[facility] HospitalErythrocyte distribution width Auto (RBC) [Ratio]on 09-30-2023 Erythrocyte distribution width (RBC) [Ratio]19.0 %High11.0-15.0[facility] HospitalEstimated glomerular filtration rate (GFR) non- Americanon 32-84-5971KCL/1.73 sq M.predicted among non-blacks MDRD (S/P/Bld) [Vol rate/Area]19 mL/min/{1.73_m2}Low>=60[facility] Globulin Calc (S) [Mass/Vol]on 67-88-3325Yirqfnvt (S) [Mass/Vol]4.8 g/dL [facility] HospitalHematocrit Auto (Bld) [Volume fraction]on 63-51-4674Piupzifydo (Bld) [Volume fraction]32.9 %Low42.0-54.0[facility] HospitalHemoglobin [Mass/volume] in Bloodon 34-86-3906Vnhsdzmupc (Bld) [Mass/Vol]10.0 g/dLLow14.0-18.0[facility] HospitalINR in Platelet poor plasma by Coagulation assayon 03-90-8661IJQ Coag (PPP) [Relative time]1.23 {INR}[facility] HospitalComment on above:DESIRED INR:2.0-3.0 CONDITIONS NOT LISTED BELOW2.5-3.5 FOR PROSTHETIC HEART VALVE REPLACEMENT2.5-3.5 RECURRENT THROMBOSISKetones Auto test strip (U) [Mass/Vol]on 28-42-0014Uyfofbp (U) [Mass/Vol]NegativeNEGATIVEGalion HospitalLaboratory - Chemistry and Chemistry - challengeon 43-89-7169Rgyfwlp [Moles/Vol]4.2 mmol/L High0.4-2.0[facility] HospitalComment on above:RESULTS CALLED TO Moncho CORREA)@BY SOFI[address] Way at 2312Albumin [Mass/Vol]2.4 g/dL Low3.4-5.0[facility] HospitalALP [Catalytic activity/Vol]145 U/L Agxf52-477KiavcvcfuGalion HospitalALT [Catalytic activity/Vol]17 U/L 16-63Gal[facility] HospitalAST [Catalytic activity/Vol]21 U/L15-37 [facility] HospitalBilirubin [Mass/Vol]0.4 mg/dL0.2-1.0[facility] HospitalCalcium [Mass/Vol]5.8 mg/dLLow8.5-10.1FOhioHealth Grant Medical CenterComment on above:RESULTS CALLED TO CHANDRIKA CASTANON @BY Verona Hanson at 1645Chloride [Moles/Vol]97 mmol/HCzz23-592JeqflcajbGalion Hospital CO2 [Moles/Vol]18.3 mmol/LLow21.0-32.0[facility] Creatinine [Mass/Vol]3.43 mg/dLHigh0.70-1.30[facility] GFR/1.73 sq M.predicted MDRD (S/P/Bld) [Vol rate/Area]22 mL/min/{1.73_m2}Low>=60 [facility] HospitalGlucose [Mass/Vol]208 mg/iDExaz20-500LifmnsxxsGalion HospitalMagnesium [Mass/Vol]0.5 mg/dLLow1.8-2.4FOhioHealth Grant Medical CenterComment on above:RESULTS CALLED TO Chandrika Castanon @BY Marybel Hawkins, [employer] WORKER bc7645Xircegggxys peptide B (Bld) [Mass/Vol]611.0 pg/mL<=900.0 [facility] HospitalPotassium [Moles/Vol]3.9 mmol/L3.5-5.1FOhioHealth Grant Medical CenterProtein [Mass/Vol]7.2 g/dL6.4-8.2FMary Rutan Hospitalodium [Moles/Vol]137 mmol/E063-170KnxspmimfGalion HospitalUrea nitrogen [Mass/Vol]34.0 mg/dLHigh7.0-18.0[facility] HospitalUrea nitrogen/Creatinine [Mass ratio]9.9 mg/mgGalion HospitalLaboratory - Hematology and Cell countson 25-74-2699FEY (Bld) [Velocity] 130 mm/hHigh<=20Gal[facility] HospitalImmature granulocytes/100 WBC (Bld)0.6 %High0.0-0.5FOhioHealth Grant Medical CenterLeukocytes [#/volume] corrected for nucleated erythrocytes in Blood by Automated counon 13-57-3173BJT corrected for nucl RBC Auto (Bld) [#/Vol]13.9 10 3/uLHigh4.0-11.0[facility] HospitalLymphocytes Auto (Bld) [#/Vol]on 28-40-6232Ayphdsoiahj (Bld) [#/Vol]1.4 10 3/uL1.2-3.8[facility] HospitalLymphocytes/100 WBC Auto (Bld)on 66-69-2947Wzuqjfauvwc/100 WBC (Bld)10.1 %Low20.5-60.0[facility]H Auto (RBC) [Entitic mass]on 12-63-8994NNL (RBC) [Entitic mass]22.7 pgLow25.9-34.0[facility] HospitalMCHC Auto (RBC) [Mass/Vol]on 29-57-8947XVRF (RBC) [Mass/Vol]30.4 g/dL29.9-35.2FOhioHealth Grant Medical CenterMCV Auto (RBC) [Entitic vol]on 74-76-1937VIP (RBC) [Entitic vol]74.6 fLLow80.0-94.0[facility] HospitalMonocytes Auto (Bld) [#/Vol]on 50-08-9146Tuuqlilqd (Bld) [#/Vol]0.9 10 3/uLHigh0.3-0.8[facility] HospitalMonocytes/100 WBC Auto (Bld)on 01-75-1397Mcphxffvt/100 WBC (Bld)6.7 %1.7-12.0[facility] HospitalMucus LM Ql (Urine sed)on 91-45-9657Mpvam Ql (Urine sed)NONE SEENNONE SEENGalion HospitalNeutrophils Auto (Bld) [#/Vol]on 10-98-8335Geybfoznqdm (Bld) [#/Vol]11.2 10 3/uLHigh1.4-6.5FOhioHealth Grant Medical CenterNeutrophils/100 WBC Auto (Bld)on 14-60-6464Skcrvrkxpby/100 WBC (Bld)80.8 %High43.0-75.0[facility] HospitalNo Panel Informationon 31-51-8287Xrtjthgy I High Sensitivity7.9 pg/mL4.0-76.1FOhioHealth Grant Medical CenterComment on above:CUT-OFF POINTS HAVE BEEN [...] AND CLINICAL INFORMATION.Venous Blood Partial Pressure CO229.6 mm[Hg]Low40.0-52.0[facility] HospitalVenous Blood pH7.4057.330-7.430Gal[facility] HospitalUrine Culture ReflexedNOGalion HospitalC-Reactive Protein, Znzifazvyaet09.76 mg/dLHigh<=0.50[facility] Eosinophils # (Auto)0.2 10 3/uL0.0-0.7FOhioHealth Grant Medical CenterImmature Granulocyte # (Auto)0.09 10 3/uLHigh0.00-0.03[facility] HospitalNo Panel InformationOrdered By: Chandrika Castanon on 17-57-4147Oxqvm Culture 2FOhioHealth Grant Medical CenterWound CultureGalion HospitalBlood Culture 1FOhioHealth Grant Medical CenterPlatelet mean volume Auto (Bld) [Entitic vol]on 41-73-9690Junxysih mean volume (Bld) [Entitic vol]10.9 fL 9.5-13.5FOhioHealth Grant Medical CenterPlatelets Auto (Bld) [#/Vol]on 60-72-3074Evhivpbmn (Bld) [#/Vol]227 10 3/zM221-417NktepclgbGalion HospitalProtein Auto test strip (U) [Mass/Vol]on 89-01-0057Njnakup (U) [Mass/Vol] NegativeNEG/TRACEGalion HospitalProthrombin time (PT)on 16-93-5048KN Coag (PPP) [Time]12.9 sHigh9.0-11.6FOhioHealth Grant Medical CenterRBC Auto (Bld) [#/Vol]on 68-00-8085QWI (Bld) [#/Vol]4.41 10 6/uLLow 4.70-6.10[facility] Centererum or plasma albumin/globulin mass ratioon 70-50-4690Fsevwak/Globulin [Mass ratio]0.5 {ratio}[facility] Centererum or plasma anion gap determinationon 80-07-2707Yknud gap [Moles/Vol]25.6 mmol/LFMary Rutan Hospitalpecific gravity Auto test strip (U) [Rel density]on 13-68-5564Kzwwawyp gravity (U) [Rel density]CLEAR CLEARGalion HospitalUrine bacteria detection by automated methodon 81-67-7353Rwnlczbr Auto Ql (U)NONE SEEN #/HPFNONE [facility] HospitalUrine glucose measurement by test strip (mass/volume)on 71-23-9997Twpyaxf Test strip (U) [Mass/Vol]500 mg/dLAbnormalNEGLake County Memorial Hospital - WestUrine hemoglobin detection by automated test stripon 94-83-8093Lwbhncezfz Auto test strip Ql (U)TRACE-INEGATIVEGalion HospitalUrine nitrite detection by automated test stripon 09-30-2023 Nitrite Auto test strip Ql (U)NegativeNEGLake County Memorial Hospital - West Urine sediment crystal identification by light microscopyon 64-85-9450Xlfsnqbn LM Nom (Urine sed)None Seen #/HPFNone [facility] HospitalUrine sediment leukocyte count by microscopy (number/high power field)on 09-30-2023 WBC LM.HPF (Urine sed) [#/Area]NONE SEEN #/HPFNONE [facility] HospitalUrobilinogen Auto test strip (U) [Mass/Vol]on 09-30-2023 Urobilinogen Qn (U)0.2 {Brendan'U}/dL0.2-1.0[facility] HospitalpH Auto test strip (U)on 99-12-2497cH (U)5.5 [pH]5.0-9.0[facility] HospitalLaboratory - Microbiology and Antimicrobial susceptibilityOrdered By: Teresa Lynch on 89-19-1070Ngimkdnwkbg observation Gram stain Nom (Unsp spec) [facility] HospitalActivated partial thromboplastin time (aPTT) in platelet poor plasma by coagulation aon 49-25-2829eZRV Coag (PPP) [Time]32.0 s 22.3-36.2FOhioHealth Grant Medical CenterBasophils Auto (Bld) [#/Vol]on 79-46-7451Ltrbzrihq (Bld) [#/Vol]0.1 10 3/uL0.0-0.1FOhioHealth Grant Medical CenterBasophils/100 WBC Auto (Bld)on 04-39-8719Tvycgcbdm/100 WBC (Bld)0.9 % 0.2-2.0[facility] HospitalEosinophils/100 WBC Auto (Bld)on 01-45-5089Dybvyjfgevp/100 WBC (Bld)2.3 %0.9-7.0[facility] Erythrocyte distribution width Auto (RBC) [Ratio]on 44-85-3310Cuzwqtsdwiu distribution width (RBC) [Ratio]18.8 %High11.0-15.0[facility] HospitalEstimated glomerular filtration rate (GFR) non- Americanon 19-96-2000KAY/1.73 sq M.predicted among non-blacks MDRD (S/P/Bld) [Vol rate/Area]27 mL/min/{1.73_m2}Low>=60[facility] HospitalHematocrit Auto (Bld) [Volume fraction]on 75-28-8604Kedthnttzp (Bld) [Volume fraction]35.0 %Low42.0-54.0[facility] HospitalHemoglobin [Mass/volume] in Blood on 44-37-1200Qcswbgmbkd (Bld) [Mass/Vol]10.3 g/dLLow14.0-18.0[facility] HospitalINR in Platelet poor plasma by Coagulation assayon 34-06-1597EKZ Coag (PPP) [Relative time]1.08 {INR}[facility] HospitalComment on above:DESIRED INR:2.0-3.0 CONDITIONS NOT LISTED BELOW2.5-3.5 FOR PROSTHETIC HEART VALVE REPLACEMENT2.5-3.5 RECURRENT THROMBOSISLaboratory - Chemistry and Chemistry - challengeon 89-93-3214Jfuunxe [Mass/Vol]8.9 mg/dL8.5-10.1FOhioHealth Grant Medical CenterChloride [Moles/Vol]97 mmol/RCpw01-144EbmpuveoqGalion HospitalCO2 [Moles/Vol]28.2 mmol/L21.0-32.0[facility] HospitalCreatinine [Mass/Vol]2.47 mg/dLHigh0.70-1.30[facility] HospitalGFR/1.73 sq M.predicted MDRD (S/P/Bld) [Vol rate/Area]33 mL/min/{1.73_m2} Low>=60[facility] HospitalGlucose [Mass/Vol]200 mg/bTLdyv61-772 [facility] HospitalPotassium [Moles/Vol]3.7 mmol/L3.5-5.1FMary Rutan Hospitalodium [Moles/Vol]137 mmol/Q038-516OcnmgdkkeGalion HospitalUrea nitrogen [Mass/Vol]23.0 mg/dLHigh7.0-18.0[facility] HospitalUrea nitrogen/Creatinine [Mass ratio]9.3 mg/mgGalion HospitalLaboratory - Hematology and Cell countson 94-94-8102Sluwpkff granulocytes/100 WBC (Bld)0.6 %High0.0-0.5FOhioHealth Grant Medical Center Leukocytes [#/volume] corrected for nucleated erythrocytes in Blood by Automated counon 63-08-0128XHJ corrected for nucl RBC Auto (Bld) [#/Vol]12.4 10 3/uLHigh 4.0-11.0[facility] HospitalLymphocytes Auto (Bld) [#/Vol]on 34-34-1121Pyurfmeezgp (Bld) [#/Vol]2.4 10 3/uL1.2-3.8[facility] HospitalLymphocytes/100 WBC Auto (Bld)on 71-49-5291Eqiqcemvdzf/100 WBC (Bld)19.6 % Low20.5-60.0[facility] HospitalH Auto (RBC) [Entitic mass]on 49-99-1849GCV (RBC) [Entitic mass]22.2 pgLow25.9-34.0[facility] HospitalMCHC Auto (RBC) [Mass/Vol]on 11-05-6611ICMM (RBC) [Mass/Vol]29.4 g/dLLow 29.9-35.2FOhioHealth Grant Medical CenterMCV Auto (RBC) [Entitic vol]on 89-77-6378KFS (RBC) [Entitic vol]75.3 fLLow80.0-94.0[facility] HospitalMonocytes Auto (Bld) [#/Vol]on 07-26-4965Kddvblcys (Bld) [#/Vol]1.2 10 3/uLHigh0.3-0.8[facility] HospitalMonocytes/100 WBC Auto (Bld)on 84-50-0027Akyhrndqf/100 WBC (Bld)10.0 %1.7-12.0[facility] Neutrophils Auto (Bld) [#/Vol]on 00-43-7983Osfqzyybvkd (Bld) [#/Vol]8.2 10 3/uL High1.4-6.5FOhioHealth Grant Medical CenterNeutrophils/100 WBC Auto (Bld)on 17-39-4462Qbnhmjwsrhi/100 WBC (Bld)66.6 %43.0-75.0[facility] HospitalNo Panel Informationon 38-16-6876Qwjqgutborj # (Auto)0.3 10 3/uL0.0-0.7 [facility] HospitalImmature Granulocyte # (Auto)0.07 10 3/uLHigh 0.00-0.03[facility] HospitalPlatelet mean volume Auto (Bld) [Entitic vol]on 16-57-8109Txhgygkj mean volume (Bld) [Entitic vol]10.9 fL 9.5-13.5FOhioHealth Grant Medical CenterPlatelets Auto (Bld) [#/Vol]on 05-26-5000Vpollqtte (Bld) [#/Vol]300 10 3/oC838-238VimidhravGalion HospitalProthrombin time (PT)on 39-10-2330WP Coag (PPP) [Time]11.4 s9.0-11.6 [facility] HospitalRBC Auto (Bld) [#/Vol]on 68-35-1489TIH (Bld) [#/Vol]4.65 10 6/uLLow4.70-6.10[facility] Centererum or plasma anion gap determinationon 45-94-4373Nakru gap [Moles/Vol]15.5 mmol/LFOhioHealth Grant Medical CenterLaboratory - Microbiology and Antimicrobial susceptibilityOrdered By: Teresa Lynch on 98-06-2760Pjltjtlgtoj observation Gram stain Nom (Unsp spec)[facility] HospitalNo Panel Informationon 13-04-7392Eyzujl Smear ResultGalion HospitalMiscellaneous Test CommentSee commentGalion HospitalComment on above:Specimen Source: FOOTRT - Foot Right - Foot Rt - 604.000No Panel InformationOrdered By: Teresa Lynch on 29-46-2047Uonx Fast CultureGalion HospitalAcid Fast SmearGalion HospitalAFB Specimen ProcessingGalion HospitalTissue CultureGalion HospitalBasophils Auto (Bld) [#/Vol]on 50-24-7139Obciwvcme (Bld) [#/Vol]0.1 10 3/uL0.0-0.1 [facility] HospitalBasophils/100 WBC Auto (Bld)on 08-07-2023 Basophils/100 WBC (Bld)0.7 %0.2-2.0[facility] Eosinophils/100 WBC Auto (Bld)on 48-36-9274Omrszvswuga/100 WBC (Bld)3.9 %0.9-7.0 [facility] HospitalErythrocyte distribution width Auto (RBC) [Ratio]on 35-86-4604Zlngnpkkrue distribution width (RBC) [Ratio]16.9 %11.0-15.0 [facility] HospitalEstimated glomerular filtration rate (GFR) non- Americanon 97-99-1386OFW/1.73 sq M.predicted among non-blacks MDRD (S/P/Bld) [Vol rate/Area]42 mL/min/{1.73_m2}>=60[facility] HospitalGlobulin Calc (S) [Mass/Vol]on 73-10-6869Lypbyedu (S) [Mass/Vol]4.0 g/dL [facility] HospitalHematocrit Auto (Bld) [Volume fraction]on 39-91-1801Uprperiqgv (Bld) [Volume fraction]31.5 %42.0-54.0[facility] HospitalHemoglobin [Mass/volume] in Bloodon 27-60-8589Xuxtzwomvi (Bld) [Mass/Vol]9.4 g/dL14.0-18.0[facility] HospitalLaboratory - Chemistry and Chemistry - challengeon 54-75-5221Xuayuap [Mass/Vol]2.1 g/dL 3.4-5.0[facility] HospitalALP [Catalytic activity/Vol]144 U/L 46-116Gal[facility] HospitalALT [Catalytic activity/Vol]21 U/L16-63 [facility] HospitalAST [Catalytic activity/Vol]25 U/L15-37 [facility] HospitalBilirubin [Mass/Vol]0.4 mg/dL0.2-1.0[facility] HospitalCalcium [Mass/Vol]8.1 mg/dL8.5-10.1FOhioHealth Grant Medical CenterChloride [Moles/Vol]102 mmol/V50-575OxtrfpuwaGalion HospitalCO2 [Moles/Vol]24.7 mmol/L21.0-32.0[facility] Creatinine [Mass/Vol]1.70 mg/dL0.70-1.30[facility] GFR/1.73 sq M.predicted MDRD (S/P/Bld) [Vol rate/Area]50 mL/min/{1.73_m2}>=60 [facility] HospitalGlucose [Mass/Vol]188 mg/bQ82-492BzhibgxoiGalion HospitalPotassium [Moles/Vol]4.6 mmol/L3.5-5.1FOhioHealth Grant Medical CenterProtein [Mass/Vol]6.1 g/dL6.4-8.2FOhioHealth Grant Medical Center Sodium [Moles/Vol]135 mmol/S437-362RxrjtfcvvGalion HospitalUrea nitrogen [Mass/Vol]33.0 mg/dL7.0-18.0[facility] HospitalUrea nitrogen/Creatinine [Mass ratio]19.4 mg/mgGalion Hospital Laboratory - Hematology and Cell countson 08-82-9948Srlllhxg granulocytes/100 WBC (Bld)0.7 %0.0-0.5FOhioHealth Grant Medical CenterLeukocytes [#/volume] corrected for nucleated erythrocytes in Blood by Automated counon 53-57-1343JCW corrected for nucl RBC Auto (Bld) [#/Vol]12.0 10 3/uL4.0-11.0[facility] HospitalLymphocytes Auto (Bld) [#/Vol]on 19-79-9241Sntzbemqspc (Bld) [#/Vol]1.5 10 3/uL1.2-3.8[facility] HospitalLymphocytes/100 WBC Auto (Bld)on 05-55-7779Mefgvdmjzri/100 WBC (Bld)12.4 %20.5-60.0[facility] Auto (RBC) [Entitic mass]on 12-41-1095TJK (RBC) [Entitic mass]22.5 pg25.9-34.0[facility] HospitalMCHC Auto (RBC) [Mass/Vol]on 14-56-9143NUYG (RBC) [Mass/Vol]29.8 g/dL29.9-35.2FOhioHealth Grant Medical CenterMCV Auto (RBC) [Entitic vol]on 14-52-2924YLX (RBC) [Entitic vol] 75.4 fL80.0-94.0[facility] HospitalMonocytes Auto (Bld) [#/Vol]on 45-93-9722Nexbpcqou (Bld) [#/Vol]1.2 10 3/uL0.3-0.8[facility] HospitalMonocytes/100 WBC Auto (Bld)on 75-00-1940Nqvkdnxmh/100 WBC (Bld)10.1 % 1.7-12.0[facility] HospitalNeutrophils Auto (Bld) [#/Vol]on 03-71-9772Jphtpcxyutm (Bld) [#/Vol]8.7 10 3/uL1.4-6.5FOhioHealth Grant Medical CenterNeutrophils/100 WBC Auto (Bld)on 05-98-3336Xyytwtjubhl/100 WBC (Bld)72.2 % 43.0-75.0[facility] HospitalNo Panel Informationon 08-07-2023 Eosinophils # (Auto)0.5 10 3/uL0.0-0.7FOhioHealth Grant Medical CenterImmature Granulocyte # (Auto)0.09 10 3/uL0.00-0.03[facility] Platelet mean volume Auto (Bld) [Entitic vol]on 02-35-7329Pfduqdkf mean volume (Bld) [Entitic vol]11.7 fL9.5-13.5FOhioHealth Grant Medical CenterPlatelets Auto (Bld) [#/Vol]on 23-89-5094Hhqonlpum (Bld) [#/Vol]222 10 3/gW628-037 [facility] HospitalRBC Auto (Bld) [#/Vol]on 78-28-3606HIM (Bld) [#/Vol]4.18 10 6/uL4.70-6.10[facility] Centererum or plasma albumin/globulin mass ratioon 43-66-7492Gsnovfy/Globulin [Mass ratio]0.5 {ratio} [facility] Centererum or plasma anion gap determinationon 58-10-4544Ddpnb gap [Moles/Vol]12.9 mmol/LFOhioHealth Grant Medical Center Basophils Auto (Bld) [#/Vol]on 87-97-8019Qsuueqcqs (Bld) [#/Vol]0.1 10 3/uL 0.0-0.1FOhioHealth Grant Medical CenterBasophils/100 WBC Auto (Bld)on 89-89-7684Zenkmrbxk/100 WBC (Bld)0.7 %0.2-2.0[facility] Eosinophils/100 WBC Auto (Bld)on 37-90-9439Gqoumebkhcz/100 WBC (Bld)3.3 %0.9-7.0 [facility] HospitalErythrocyte distribution width Auto (RBC) [Ratio]on 01-14-8938Phhlzhwtyes distribution width (RBC) [Ratio]17.0 %11.0-15.0 [facility] HospitalEstimated glomerular filtration rate (GFR) non- Americanon 09-37-9406PTD/1.73 sq M.predicted among non-blacks MDRD (S/P/Bld) [Vol rate/Area]36 mL/min/{1.73_m2}>=60[facility] HospitalGlobulin Calc (S) [Mass/Vol]on 08-56-7544Dmppjwxr (S) [Mass/Vol]4.0 g/dL [facility] HospitalHematocrit Auto (Bld) [Volume fraction]on 88-97-4622Adstnytrfd (Bld) [Volume fraction]30.1 %42.0-54.0[facility] HospitalHemoglobin [Mass/volume] in Bloodon 48-18-6186Egpstmntla (Bld) [Mass/Vol]8.8 g/dL14.0-18.0[facility] HospitalLaboratory - Chemistry and Chemistry - challengeon 96-31-2166Nyqxcfa [Mass/Vol]2.0 g/dL 3.4-5.0[facility] HospitalALP [Catalytic activity/Vol]127 U/L 46-116Gal[facility] HospitalALT [Catalytic activity/Vol]14 U/L16-63 [facility] HospitalAST [Catalytic activity/Vol]16 U/L15-37 [facility] HospitalBilirubin [Mass/Vol]0.4 mg/dL0.2-1.0[facility] HospitalCalcium [Mass/Vol]7.9 mg/dL8.5-10.1FOhioHealth Grant Medical CenterChloride [Moles/Vol]99 mmol/T09-681ZlxcaocvfGalion HospitalCO2 [Moles/Vol]25.0 mmol/L21.0-32.0[facility] Creatinine [Mass/Vol]1.95 mg/dL0.70-1.30[facility] GFR/1.73 sq M.predicted MDRD (S/P/Bld) [Vol rate/Area]43 mL/min/{1.73_m2}>=60 [facility] HospitalGlucose [Mass/Vol]297 mg/iC58-382WopjpqpbbGalion HospitalPotassium [Moles/Vol]4.4 mmol/L3.5-5.1FOhioHealth Grant Medical CenterProtein [Mass/Vol]6.0 g/dL6.4-8.2FOhioHealth Grant Medical Center Sodium [Moles/Vol]133 mmol/I847-863GzvnmxnpzGalion HospitalUrea nitrogen [Mass/Vol]28.0 mg/dL7.0-18.0[facility] HospitalUrea nitrogen/Creatinine [Mass ratio]14.4 mg/mgGalion Hospital Laboratory - Hematology and Cell countson 35-97-1595Eprxpdvu granulocytes/100 WBC (Bld)0.4 %0.0-0.5FOhioHealth Grant Medical CenterLeukocytes [#/volume] corrected for nucleated erythrocytes in Blood by Automated counon 35-88-5823IQE corrected for nucl RBC Auto (Bld) [#/Vol]10.1 10 3/uL4.0-11.0[facility] HospitalLymphocytes Auto (Bld) [#/Vol]on 23-44-5047Fpdbkoxqrqb (Bld) [#/Vol]1.5 10 3/uL1.2-3.8[facility] HospitalLymphocytes/100 WBC Auto (Bld)on 20-85-9818Lcnakimincc/100 WBC (Bld)14.4 %20.5-60.0[facility] HospitalMCH Auto (RBC) [Entitic mass]on 40-05-2517DBL (RBC) [Entitic mass]22.5 pg25.9-34.0[facility] HospitalMCHC Auto (RBC) [Mass/Vol]on 31-25-3958SXLW (RBC) [Mass/Vol]29.2 g/dL29.9-35.2FOhioHealth Grant Medical CenterMCV Auto (RBC) [Entitic vol]on 23-09-7944SZM (RBC) [Entitic vol] 77.0 fL80.0-94.0[facility] HospitalMonocytes Auto (Bld) [#/Vol]on 79-14-2913Gonyxhbld (Bld) [#/Vol]1.1 10 3/uL0.3-0.8[facility] HospitalMonocytes/100 WBC Auto (Bld)on 09-75-6704Gkgeevkdo/100 WBC (Bld)10.4 % 1.7-12.0[facility] HospitalNeutrophils Auto (Bld) [#/Vol]on 99-68-3577Eypppkeyawj (Bld) [#/Vol]7.2 10 3/uL1.4-6.5FOhioHealth Grant Medical CenterNeutrophils/100 WBC Auto (Bld)on 33-65-0326Fdznhvdpdcp/100 WBC (Bld)70.8 % 43.0-75.0[facility] HospitalNo Panel Informationon 08-06-2023 Vancomycin Level Atfubs94.6 ug/mL5.0-20.0[facility] Eosinophils # (Auto)0.3 10 3/uL0.0-0.7FOhioHealth Grant Medical CenterImmature Granulocyte # (Auto)0.04 10 3/uL0.00-0.03[facility] Platelet mean volume Auto (Bld) [Entitic vol]on 47-74-4961Mvdpsflt mean volume (Bld) [Entitic vol]12.2 fL9.5-13.5FOhioHealth Grant Medical CenterPlatelets Auto (Bld) [#/Vol]on 40-29-0411Ueginitef (Bld) [#/Vol]190 10 3/dV365-551 [facility] HospitalRBC Auto (Bld) [#/Vol]on 25-81-2709EXC (Bld) [#/Vol]3.91 10 6/uL4.70-6.10[facility] Centererum or plasma albumin/globulin mass ratioon 56-07-1974Ziwalhf/Globulin [Mass ratio]0.5 {ratio} [facility] CenterSerum or plasma anion gap determinationon 42-09-1526Krxbl gap [Moles/Vol]13.4 mmol/LFOhioHealth Grant Medical Center Automated epithelial cells count in urine sediment (number/area)on 08-05-2023 Epithelial cells Auto (Urine sed) [#/Area]RARE #/LPFNONE/RAREGalion HospitalAutomated leukocytes count in urine sediment (number/area)on 26-00-6261XUQ Auto (Urine sed) [#/Area]NONE SEEN #/HPF0-2FOhioHealth Grant Medical CenterAutomated urine specific gravity by refractometryon 08-05-2023 Specific gravity Refractometry automated (U) [Rel density]<=1.0051.005-1.025 [facility] HospitalBasophils Auto (Bld) [#/Vol]on 08-05-2023 Basophils (Bld) [#/Vol]0.1 10 3/uL0.0-0.1FOhioHealth Grant Medical Center Basophils/100 WBC Auto (Bld)on 67-81-6320Mgqrfaeox/100 WBC (Bld)0.7 %0.2-2.0 [facility] HospitalBilirubin Auto test strip (U) [Mass/Vol]on 58-27-1763Zuiwcgozl (U) [Mass/Vol]NegativeNEGATIVEGalion HospitalCasts typing in urine sediment by light microscopyon 32-35-3950Iivkg LM Nom (Urine sed)NONE SEEN #/LPFNONE [facility] HospitalColor Auto (U)on 54-40-2613Qddiv (U)LT. YELLOWYELLOWGalion Hospital Eosinophils/100 WBC Auto (Bld)on 09-34-0969Cbtkbxxwtmx/100 WBC (Bld)2.5 %0.9-7.0 [facility] HospitalErythrocyte distribution width Auto (RBC) [Ratio]on 76-45-8004Xuspezfchox distribution width (RBC) [Ratio]16.8 %11.0-15.0 [facility] HospitalEstimated glomerular filtration rate (GFR) non- Americanon 91-58-4862YKZ/1.73 sq M.predicted among non-blacks MDRD (S/P/Bld) [Vol rate/Area]42 mL/min/{1.73_m2}>=60Gal[facility] HospitalGlobulin Calc (S) [Mass/Vol]on 04-14-9099Pjxpuphu (S) [Mass/Vol]4.1 g/dL [facility] HospitalGlucose mean value [Mass/volume] in Blood Estimated from glycated hemoglobinon 78-20-5091Igdmpfs glucose Estimated from glycated hemoglobin (Bld) [Mass/Vol]214 mg/dLGalion Hospital Hematocrit Auto (Bld) [Volume fraction]on 31-09-1153Wbpiphvnal (Bld) [Volume fraction]31.8 %42.0-54.0[facility] HospitalHemoglobin [Mass/volume] in Bloodon 53-26-4860Pkyukpuwag (Bld) [Mass/Vol]9.4 g/dL14.0-18.0 [facility] HospitalKetones Auto test strip (U) [Mass/Vol]on 09-62-0573Vldvnyx (U) [Mass/Vol]NegativeNEGATIVEGalion HospitalLaboratory - Chemistry and Chemistry - challengeon 13-40-4873Powltii [Mass/Vol]2.3 g/dL3.4-5.0[facility] HospitalALP [Catalytic activity/Vol]111 U/A90-969WyprcpksbGalion HospitalALT [Catalytic activity/Vol]11 U/Q20-81CizaxcjpsGalion HospitalAST [Catalytic activity/Vol]11 U/C22-20JzcvteapuGalion HospitalBilirubin [Mass/Vol]0.5 mg/dL0.2-1.0[facility] HospitalCalcium [Mass/Vol]8.1 mg/dL 8.5-10.1FOhioHealth Grant Medical CenterChloride [Moles/Vol]101 mmol/L98-107 [facility] HospitalCO2 [Moles/Vol]25.6 mmol/L21.0-32.0[facility] HospitalCreatinine [Mass/Vol]1.68 mg/dL0.70-1.30Gal[facility] HospitalGFR/1.73 sq M.predicted MDRD (S/P/Bld) [Vol rate/Area]51 mL/min/{1.73_m2}>=60[facility] HospitalGlucose [Mass/Vol]111 mg/dL 74-106[facility] HospitalPotassium [Moles/Vol]3.7 mmol/L3.5-5.1 [facility] HospitalProtein [Mass/Vol]6.4 g/dL6.4-8.2FMary Rutan Hospitalodium [Moles/Vol]138 mmol/O630-783HhyxbobvkGalion HospitalUrea nitrogen [Mass/Vol]17.0 mg/dL7.0-18.0[facility] HospitalUrea nitrogen/Creatinine [Mass ratio]10.1 mg/mgGalion HospitalLaboratory - Hematology and Cell countson 82-13-8808MlU0x (Bld) [Mass fraction]9.1 %4.5-6.2FOhioHealth Grant Medical CenterComment on above:ADA RECOMMENDED LIMIT 4.0 - 6.0ADA THERAPEUTIC TARGET < 7.0ACTION SUGGESTED> 7.0 Immature granulocytes/100 WBC (Bld)0.4 %0.0-0.5FOhioHealth Grant Medical Center Laboratory - Microbiology and Antimicrobial susceptibilityOrdered By: Teresa Lynch on 45-28-6865Tglgwarboyk observation Gram stain Nom (Unsp spec)Gal[facility] HospitalLeukocytes [#/volume] corrected for nucleated erythrocytes in Blood by Automated counon 16-07-8976WFC corrected for nucl RBC Auto (Bld) [#/Vol]12.3 10 3/uL4.0-11.0[facility] Lymphocytes Auto (Bld) [#/Vol]on 54-51-0696Lokjdjankrm (Bld) [#/Vol]1.5 10 3/uL 1.2-3.8[facility] HospitalLymphocytes/100 WBC Auto (Bld)on 59-20-1106Uytztzemgqc/100 WBC (Bld)11.8 %20.5-60.0[facility] HospitalMCH Auto (RBC) [Entitic mass]on 17-86-7378UNQ (RBC) [Entitic mass]22.4 pg 25.9-34.0[facility] HospitalMCHC Auto (RBC) [Mass/Vol]on 61-18-3225FJFY (RBC) [Mass/Vol]29.6 g/dL29.9-35.2FOhioHealth Grant Medical CenterMCV Auto (RBC) [Entitic vol]on 31-36-6894YUC (RBC) [Entitic vol]75.9 fL 80.0-94.0[facility] HospitalMonocytes Auto (Bld) [#/Vol]on 92-91-2382Qxvwlbvzs (Bld) [#/Vol]1.3 10 3/uL0.3-0.8[facility] HospitalMonocytes/100 WBC Auto (Bld)on 70-70-6563Ebkksgxhh/100 WBC (Bld)10.7 % 1.7-12.0[facility] HospitalMucus LM Ql (Urine sed)on 08-05-2023 Mucus Ql (Urine sed)NONE SEENNONE SEENGalion Hospital Neutrophils Auto (Bld) [#/Vol]on 51-58-8361Haovztavliy (Bld) [#/Vol]9.1 10 3/uL 1.4-6.5FOhioHealth Grant Medical CenterNeutrophils/100 WBC Auto (Bld)on 91-86-0530Abxihfznsdr/100 WBC (Bld)73.9 %43.0-75.0[facility] HospitalNo Panel Informationon 69-38-9283Wwcnttuvvyf # (Auto)0.3 10 3/uL0.0-0.7 [facility] HospitalImmature Granulocyte # (Auto)0.05 10 3/uL 0.00-0.03[facility] HospitalPlatelet mean volume Auto (Bld) [Entitic vol]on 17-45-9341Dkfpgdhc mean volume (Bld) [Entitic vol]11.2 fL 9.5-13.5FOhioHealth Grant Medical CenterPlatelets Auto (Bld) [#/Vol]on 42-95-9303Hvlmdphjx (Bld) [#/Vol]184 10 3/kT440-761SfewqxsekGalion HospitalProtein Auto test strip (U) [Mass/Vol]on 12-34-2552Gypevdx (U) [Mass/Vol] NegativeNEG/TRACEGalion HospitalRBC Auto (Bld) [#/Vol]on 58-55-2033KVA (Bld) [#/Vol]4.19 10 6/uL4.70-6.10[facility] Centererum or plasma albumin/globulin mass ratioon 37-54-7268Pypbqbx/Globulin [Mass ratio]0.6 {ratio}[facility] Centererum or plasma anion gap determinationon 24-06-2978Abekb gap [Moles/Vol]15.1 mmol/LFMary Rutan Hospitalpecific gravity Auto test strip (U) [Rel density]on 08-05-2023 Specific gravity (U) [Rel density]CLEARCLEARFOhioHealth Grant Medical Center Urine bacteria detection by automated methodon 72-44-3886Qrtlqiwj Auto Ql (U) TRACE #/HPFNONE [facility] HospitalUrine glucose measurement by test strip (mass/volume)on 39-70-4417Oeopgrn Test strip (U) [Mass/Vol]>=1000 mg/dLNEGATIVEGalion HospitalUrine hemoglobin detection by automated test stripon 92-04-5379Pranysnwqb Auto test strip Ql (U)Negative NEGATIVEGalion HospitalUrine nitrite detection by automated test stripon 62-02-8089Dxjuuvw Auto test strip Ql (U)NegativeNEGATIVEGalion HospitalUrine sediment crystal identification by light microscopy on 03-35-5139Npjffcii LM Nom (Urine sed)None Seen #/HPFNone [facility] HospitalUrine sediment leukocyte count by microscopy (number/high power field)on 12-71-1442CQK LM.HPF (Urine sed) [#/Area]NONE SEEN #/HPFNONE [facility] HospitalUrobilinogen Auto test strip (U) [Mass/Vol] on 58-10-3253Jwxkzfjofyqj Qn (U)0.2 {Brendan'U}/dL0.2-1.0[facility] HospitalpH Auto test strip (U)on 20-37-4635bW (U)6.0 [pH]5.0-9.0[facility] HospitalBasophils Auto (Bld) [#/Vol]on 47-37-3178Pcqdcmsrk (Bld) [#/Vol]0.1 10 3/uL0.0-0.1FOhioHealth Grant Medical CenterBasophils/100 WBC Auto (Bld)on 70-06-2803Sgyizydrh/100 WBC (Bld)0.8 %0.2-2.0[facility] HospitalEosinophils/100 WBC Auto (Bld)on 53-32-5595Bbevfojbtgp/100 WBC (Bld)2.8 % 0.9-7.0[facility] HospitalErythrocyte distribution width Auto (RBC) [Ratio]on 85-89-8639Dcoyejgiztt distribution width (RBC) [Ratio]16.9 % 11.0-15.0[facility] HospitalEstimated glomerular filtration rate (GFR) non- Americanon 55-86-4485QUR/1.73 sq M.predicted among non-blacks MDRD (S/P/Bld) [Vol rate/Area]33 mL/min/{1.73_m2}>=60[facility] HospitalGlobulin Calc (S) [Mass/Vol]on 75-59-6729Uzhsqrtn (S) [Mass/Vol]4.4 g/dL [facility] HospitalHematocrit Auto (Bld) [Volume fraction]on 37-07-5442Whzngxxsvx (Bld) [Volume fraction]32.6 %42.0-54.0[facility] HospitalHemoglobin [Mass/volume] in Bloodon 12-53-2923Ztgzdzpugr (Bld) [Mass/Vol]9.6 g/dL14.0-18.0[facility] HospitalINR in Platelet poor plasma by Coagulation assayon 31-87-9795IZD Coag (PPP) [Relative time]1.05 {INR}[facility] HospitalComment on above:DESIRED INR:2.0-3.0 CONDITIONS NOT LISTED BELOW2.5-3.5 FOR PROSTHETIC HEART VALVE REPLACEMENT2.5-3.5 RECURRENT THROMBOSISLaboratory - Chemistry and Chemistry - challengeon 10-88-9785Yarteel [Mass/Vol]2.4 g/dL3.4-5.0[facility] HospitalALP [Catalytic activity/Vol]109 U/J39-533HddhbaivfGalion HospitalALT [Catalytic activity/Vol]9 U/W73-65VakvtlsgiGalion HospitalAST [Catalytic activity/Vol]U/E06-01IreueibwpGalion HospitalBilirubin [Mass/Vol]0.4 mg/dL0.2-1.0[facility] HospitalCalcium [Mass/Vol]8.0 mg/dL8.5-10.1FOhioHealth Grant Medical CenterChloride [Moles/Vol]96 mmol/L 98-107[facility] HospitalCO2 [Moles/Vol]29.2 mmol/L21.0-32.0 [facility] HospitalCreatinine [Mass/Vol]2.06 mg/dL0.70-1.30 [facility] HospitalGFR/1.73 sq M.predicted MDRD (S/P/Bld) [Vol rate/Area]40 mL/min/{1.73_m2}>=60[facility] HospitalGlucose [Mass/Vol]329 mg/cG82-027RrqqydzpbGalion HospitalPotassium [Moles/Vol] 3.5 mmol/L3.5-5.1FOhioHealth Grant Medical CenterProtein [Mass/Vol]6.8 g/dL 6.4-8.2FMary Rutan Hospitalodium [Moles/Vol]132 mmol/E325-380 [facility] HospitalUrea nitrogen [Mass/Vol]20.0 mg/dL7.0-18.0 [facility] HospitalUrea nitrogen/Creatinine [Mass ratio]9.7 mg/mg [facility] HospitalLaboratory - Hematology and Cell countson 67-92-1185OTV (Bld) [Velocity]89 mm/h<=20[facility] Immature granulocytes/100 WBC (Bld)0.3 %0.0-0.5FOhioHealth Grant Medical Center Laboratory - Microbiology and Antimicrobial susceptibilityOrdered By: Teresa Lynch on 02-10-8158Mnqyucoolzi observation Gram stain Nom (Unsp spec)[facility] HospitalLeukocytes [#/volume] corrected for nucleated erythrocytes in Blood by Automated counon 25-79-7353GOZ corrected for nucl RBC Auto (Bld) [#/Vol]11.6 10 3/uL4.0-11.0[facility] Lymphocytes Auto (Bld) [#/Vol]on 28-27-2360Lqvverqrcgc (Bld) [#/Vol]1.7 10 3/uL 1.2-3.8[facility] HospitalLymphocytes/100 WBC Auto (Bld)on 51-64-6119Arbgklqidqx/100 WBC (Bld)14.9 %20.5-60.0[facility] HospitalH Auto (RBC) [Entitic mass]on 90-78-1066ULK (RBC) [Entitic mass]22.3 pg 25.9-34.0[facility] HospitalMCHC Auto (RBC) [Mass/Vol]on 26-45-4193JOTR (RBC) [Mass/Vol]29.4 g/dL29.9-35.2FOhioHealth Grant Medical CenterMCV Auto (RBC) [Entitic vol]on 48-56-9645ZGM (RBC) [Entitic vol]75.8 fL 80.0-94.0[facility] HospitalMonocytes Auto (Bld) [#/Vol]on 77-75-0407Vsbpstany (Bld) [#/Vol]1.2 10 3/uL0.3-0.8[facility] HospitalMonocytes/100 WBC Auto (Bld)on 46-19-3267Gxtizvydm/100 WBC (Bld)10.4 % 1.7-12.0[facility] HospitalNeutrophils Auto (Bld) [#/Vol]on 57-87-1774Anphvfrplpw (Bld) [#/Vol]8.2 10 3/uL1.4-6.5FOhioHealth Grant Medical CenterNeutrophils/100 WBC Auto (Bld)on 65-12-9980Reehhcxfhjf/100 WBC (Bld)70.8 % 43.0-75.0[facility] HospitalNo Panel InformationOrdered By: Teresa Lynch on 16-29-3165Kcoxf Culture 2FOhioHealth Grant Medical CenterBlood Culture 1FOhioHealth Grant Medical CenterWound CultureGalion Hospital No Panel Informationon 92-89-3806Sdycudj & Anaerobic SusceptibilityGalion HospitalMiscellaneous Test CommentSee commentGalion HospitalComment on above:Specimen Source: FOOT - Foot - Foot - 603.950C- Reactive Protein, Csccnqhmahis38.62 mg/dL<=0.50[facility] Eosinophils # (Auto)0.3 10 3/uL0.0-0.7FOhioHealth Grant Medical CenterImmature Granulocyte # (Auto)0.04 10 3/uL0.00-0.03[facility] Platelet mean volume Auto (Bld) [Entitic vol]on 31-82-8512Dbfwlfgy mean volume (Bld) [Entitic vol]11.5 fL9.5-13.5FOhioHealth Grant Medical CenterPlatelets Auto (Bld) [#/Vol]on 82-33-9061Abfogahmh (Bld) [#/Vol]206 10 3/wT959-443 [facility] HospitalProthrombin time (PT)on 91-59-6992YT Coag (PPP) [Time]11.1 s9.0-11.6FOhioHealth Grant Medical CenterRBC Auto (Bld) [#/Vol]on 55-94-9376PCW (Bld) [#/Vol]4.30 10 6/uL4.70-6.10[facility] Centererum or plasma albumin/globulin mass ratioon 27-76-4766Afgfqor/Globulin [Mass ratio]0.5 {ratio}[facility] Centererum or plasma anion gap determinationon 54-07-5947Jomth gap [Moles/Vol]10.3 mmol/LFMary Rutan Hospitalerum procalcitonin measurementon 08-83-7162Dasznitgsiugm [Mass/Vol]0.10 ng/mL0.00-0.50[facility] HospitalBasophils Auto (Bld) [#/Vol]on 49-65-1631Piqwuxmct (Bld) [#/Vol]0.1 10 3/uL0.0-0.1FOhioHealth Grant Medical CenterBasophils/100 WBC Auto (Bld)on 20-56-7434Euuxnxayd/100 WBC (Bld)0.7 %0.2-2.0[facility] HospitalEosinophils/100 WBC Auto (Bld)on 52-63-2413Jzcvlpyyavr/100 WBC (Bld)1.8 %0.9-7.0[facility] HospitalErythrocyte distribution width Auto (RBC) [Ratio]on 08-03-2023 Erythrocyte distribution width (RBC) [Ratio]17.0 %11.0-15.0[facility] HospitalEstimated glomerular filtration rate (GFR) non- Americanon 17-04-5482HQU/1.73 sq M.predicted among non-blacks MDRD (S/P/Bld) [Vol rate/Area]27 mL/min/{1.73_m2}>=60[facility] HospitalGlobulin Calc (S) [Mass/Vol]on 97-03-6166Greilrmj (S) [Mass/Vol]5.0 g/dLGalion HospitalHematocrit Auto (Bld) [Volume fraction]on 42-59-1106Qzqibnmntq (Bld) [Volume fraction]38.9 %42.0-54.0[facility] Hemoglobin [Mass/volume] in Bloodon 40-10-4161Dcedewmiuk (Bld) [Mass/Vol]11.8 g/dL14.0-18.0[facility] HospitalLaboratory - Chemistry and Chemistry - challengeon 96-91-2744Qduofzd [Moles/Vol]1.6 mmol/L0.4-2.0[facility] HospitalAlbumin [Mass/Vol]3.3 g/dL3.4-5.0[facility] HospitalALP [Catalytic activity/Vol]134 U/F23-217CqqoayyxdGalion HospitalALT [Catalytic activity/Vol]13 U/Q56-20GedoucyxsGalion HospitalAST [Catalytic activity/Vol]U/S24-27QcjvzuxuyGalion Hospital Bilirubin [Mass/Vol]0.6 mg/dL0.2-1.0[facility] HospitalCalcium [Mass/Vol]9.3 mg/dL8.5-10.1FOhioHealth Grant Medical CenterChloride [Moles/Vol] 92 mmol/I00-996ScxdzaitkGalion HospitalCO2 [Moles/Vol]31.0 mmol/L 21.0-32.0[facility] HospitalCreatinine [Mass/Vol]2.45 mg/dL 0.70-1.30[facility] HospitalGFR/1.73 sq M.predicted MDRD (S/P/Bld) [Vol rate/Area]33 mL/min/{1.73_m2}>=60[facility] HospitalGlucose [Mass/Vol]310 mg/bT28-851GkpmpmqkfGalion HospitalPotassium [Moles/Vol] 3.7 mmol/L3.5-5.1FOhioHealth Grant Medical CenterProtein [Mass/Vol]8.3 g/dL 6.4-8.2FMary Rutan Hospitalodium [Moles/Vol]133 mmol/N779-688 [facility] HospitalUrea nitrogen [Mass/Vol]23.0 mg/dL7.0-18.0 [facility] HospitalUrea nitrogen/Creatinine [Mass ratio]9.4 mg/mg [facility] HospitalLaboratory - Hematology and Cell countson 06-14-8341DZB (Bld) [Velocity]118 mm/h<=20[facility] Immature granulocytes/100 WBC (Bld)0.4 %0.0-0.5FOhioHealth Grant Medical Center Leukocytes [#/volume] corrected for nucleated erythrocytes in Blood by Automated counon 24-03-6113HHL corrected for nucl RBC Auto (Bld) [#/Vol]14.6 10 3/uL 4.0-11.0[facility] HospitalLymphocytes Auto (Bld) [#/Vol]on 42-19-2890Ssodsbqtuer (Bld) [#/Vol]2.1 10 3/uL1.2-3.8[facility] HospitalLymphocytes/100 WBC Auto (Bld)on 12-97-7715Exdsiamclcw/100 WBC (Bld)14.3 % 20.5-60.0[facility] HospitalH Auto (RBC) [Entitic mass]on 90-25-3452KZK (RBC) [Entitic mass]22.6 pg25.9-34.0[facility] HospitalMCHC Auto (RBC) [Mass/Vol]on 63-84-2507QVNA (RBC) [Mass/Vol]30.3 g/dL 29.9-35.2FOhioHealth Grant Medical CenterMCV Auto (RBC) [Entitic vol]on 16-16-0822OHY (RBC) [Entitic vol]74.4 fL80.0-94.0[facility] HospitalMonocytes Auto (Bld) [#/Vol]on 34-38-6316Vmbacwzys (Bld) [#/Vol]1.4 10 3/uL0.3-0.8[facility] HospitalMonocytes/100 WBC Auto (Bld)on 68-01-5095Ywxvgvgcv/100 WBC (Bld)9.4 %1.7-12.0[facility] Neutrophils Auto (Bld) [#/Vol]on 95-02-2571Wegilvxderp (Bld) [#/Vol]10.7 10 3/uL 1.4-6.5FOhioHealth Grant Medical CenterNeutrophils/100 WBC Auto (Bld)on 19-92-4427Fsrterpyibv/100 WBC (Bld)73.4 %43.0-75.0[facility] HospitalNo Panel Informationon 30-87-5333Z-Reactive Protein, Pejnqkqupfiu62.63 mg/dL<=0.50[facility] HospitalEosinophils # (Auto)0.3 10 3/uL 0.0-0.7FOhioHealth Grant Medical CenterImmature Granulocyte # (Auto)0.06 10 3/uL0.00-0.03[facility] HospitalVenous Blood Partial Pressure CO2 44.8 mm[Hg]40.0-52.0[facility] HospitalVenous Blood pH7.432 7.330-7.430[facility] HospitalNo Panel InformationOrdered By: Teresa Lynch on 94-75-8413Pdcky Culture 2FOhioHealth Grant Medical CenterBlood Culture 1FOhioHealth Grant Medical CenterPlatelet mean volume Auto (Bld) [Entitic vol]on 15-73-8877Qdfrqqjj mean volume (Bld) [Entitic vol]11.4 fL 9.5-13.5FOhioHealth Grant Medical CenterPlatelets Auto (Bld) [#/Vol]on 45-47-6254Axhyljmvg (Bld) [#/Vol]252 10 3/bC996-901SzlxsprpxGalion HospitalRBC Auto (Bld) [#/Vol]on 12-23-6391VJJ (Bld) [#/Vol]5.23 10 6/uL4.70-6.10 [facility] Centererum or plasma albumin/globulin mass ratioon 63-03-7052Klxkblu/Globulin [Mass ratio]0.7 {ratio}[facility] Centererum or plasma anion gap determinationon 64-49-2026Brnrl gap [Moles/Vol] 13.7 mmol/LFOhioHealth Grant Medical CenterActivated partial thromboplastin time (aPTT) in platelet poor plasma by coagulation aOrdered By: Abdullahi Wilson on 93-84-9507tQAO Coag (PPP) [Time]29.4 s25.1-36.5FOhioHealth Grant Medical CenterComment on above:A hematocrit value greater than 55% may lead to inaccurate results in coagulation testing. Patientshaving hematocrit values >55% require a special collection tube for coagulation studies. Please contact the laboratory at [phone] for redraw instructions.Alanine aminotransferase [Enzymatic activity/volume] in Serum or PlasmaOrdered By: Abdullahi Wilson on 48-30-1265TVN [Catalytic activity/Vol]9 U/L7-52[facility] Albumin [Mass/volume] in Serum or Plasma by Bromocresol green (BCG) dye binding methoOrdered By: Abdullahi Wilson on 64-03-6658Svkjyqs BCG dye [Mass/Vol]3.9 g/dL 3.5-5.7FOhioHealth Grant Medical CenterAlkaline phosphatase [Enzymatic activity/volume] in Serum or PlasmaOrdered By: Abdullahi Wilson on 68-50-0692HSN [Catalytic activity/Vol]106 U/T87-485ZcblkafsiGalion HospitalAspartate aminotransferase [Enzymatic activity/volume] in Serum or PlasmaOrdered By: Abdullahi Wilson on 39-99-7492RBM [Catalytic activity/Vol]8 U/K32-74EpluivuncGalion HospitalBasophils Auto (Bld) [#/Vol]Ordered By: Abdullahi Wilson on 59-57-3930Aonfkahws (Bld) [#/Vol]0.1 10*3/uL0.0-0.2FOhioHealth Grant Medical CenterBasophils/100 WBC Auto (Bld)Ordered By: Abdullahi Wilson on 07-12-2023 Basophils/100 WBC (Bld)1.1 %.[facility] HospitalBilirubin.total [Mass/volume] in Serum or PlasmaOrdered By: Abdullahi Wlison on 07-12-2023 Bilirubin [Mass/Vol]0.4 mg/dL0.3-1.0[facility] HospitalCalcium [Mass/volume] in Serum or PlasmaOrdered By: bAdullahi Wilson on 92-46-5184Vvsntkc [Mass/Vol]8.5 mg/dL8.6-10.3FOhioHealth Grant Medical CenterCarbon dioxide, total [Moles/volume] in Serum or PlasmaOrdered By: Abdullahi Wilson on 07-12-2023 CO2 [Moles/Vol]24.5 mmol/L21.0-31.0[facility] HospitalChloride [Moles/volume] in Serum or PlasmaOrdered By: Abdullahi Wilson on 07-12-2023 Chloride [Moles/Vol]102 mmol/F36-441BascjkyteGalion HospitalCreatine kinase [Enzymatic activity/volume] in Serum or PlasmaOrdered By: Abdullahi Wilson on 20-62-0898EA [Catalytic activity/Vol]55 U/V53-869IoyfeazrvGalion HospitalCreatinine [Mass/volume] in Serum or PlasmaOrdered By: Abdullahi Wilson on 33-66-6607Xqbbwzidzw [Mass/Vol]1.82 mg/dL0.70-1.30[facility] HospitalEosinophils Auto (Bld) [#/Vol]Ordered By: Abdullahi Wilson on 07-12-2023 Eosinophils (Bld) [#/Vol]0.3 10*3/uL0.0-0.45[facility] Eosinophils/100 WBC Auto (Bld)Ordered By: Abdullahi Wilson on 07-12-2023 Eosinophils/100 WBC (Bld)3.3 %.[facility] HospitalErythrocyte distribution width Auto (RBC) [Ratio]Ordered By: Abdullahi Wilson on 07-12-2023 Erythrocyte distribution width (RBC) [Ratio]17.1 %12.0-14.8[facility] HospitalGlobulin Calc (S) [Mass/Vol]Ordered By: Abdullahi Wilson on 20-70-7329Pzomsxeh (S) [Mass/Vol]3.1 g/dLGalion Hospital Glucose [Mass/volume] in Serum or PlasmaOrdered By: Abdullahi Wilson on 07-12-2023 Glucose [Mass/Vol]302 mg/rU95-606GplaoppdmGalion HospitalComment on above:ADA recommended reference rangeRandom Glucose Reference Range is dependent on time and content of last meal. Glucose of more than 200 mg/dL in a nonstressed, ambulatory subject supports the diagnosisof Diabetes Mellitus. Hematocrit Auto (Bld) [Volume fraction]Ordered By: Abdullahi Wilson on 07-12-2023 Hematocrit (Bld) [Volume fraction]32.7 %38.8-50.0[facility] HospitalHemoglobin [Mass/volume] in BloodOrdered By: Abdullahi Wilson on 07-12-2023 Hemoglobin (Bld) [Mass/Vol]10.6 g/dL13.0-17.0[facility] INR in Platelet poor plasma by Coagulation assayOrdered By: Abdullahi Wilson on 63-15-5848UPL Coag (PPP) [Relative time]1.1 {INR}[facility] HospitalComment on above:INR Therapeutic Range A) Pre- [...] by Automated counOrdered By: Abdullahi Wilson on 76-33-3285ZZL corrected for nucl RBC Auto (Bld) [#/Vol]9.5 10*3/uL4.1-10.5FOhioHealth Grant Medical CenterLymphocytes Auto (Bld) [#/Vol]Ordered By: Abdullahi Wilson on 07-12-2023 Lymphocytes (Bld) [#/Vol]1.9 10*3/uL1.00-4.8[facility] Lymphocytes/100 WBC Auto (Bld)Ordered By: Abdullahi Wilson on 07-12-2023 Lymphocytes/100 WBC (Bld)20.0 %.[facility]H Auto (RBC) [Entitic mass]Ordered By: Abdullahi Wilson on 53-26-9626CYI (RBC) [Entitic mass] 22.8 pg27.5-35.2FOhioHealth Grant Medical CenterMCHC Auto (RBC) [Mass/Vol] Ordered By: Abdullahi Wilson on 80-67-0760FGJE (RBC) [Mass/Vol]32.4 g/dL32.5-35.6 [facility] HospitalMCV Auto (RBC) [Entitic vol]Ordered By: Abdullahi Wilson on 98-88-9764WXS (RBC) [Entitic vol]70.6 fL83.5-101[facility] HospitalMonocyte distribution width [Entitic volume] in Blood by Automated Ordered By: Abdullahi Wilson on 18-56-3428Halonpis distribution width Auto (Bld) [Entitic vol]18.12 %0.00-20.00[facility] HospitalMonocytes Auto (Bld) [#/Vol]Ordered By: Abdullahi Wilson on 98-78-1605Mlvqijpox (Bld) [#/Vol]1.0 10*3/uL0.0-0.8[facility] HospitalMonocytes/100 WBC Auto (Bld) Ordered By: Abdullahi Wilson on 23-12-7770Wpcdonxah/100 WBC (Bld)10.2 %.[facility] HospitalNatriuretic peptide B [Mass/Vol]Ordered By: Abdullahi Wilson on 78-62-0289Eqnzsjskljx peptide B (Bld) [Mass/Vol]34.0 pg/mL5-100 [facility] HospitalNeutrophils Auto (Bld) [#/Vol]Ordered By: Abdullahi Wilson on 21-11-2413Udydlujcaef (Bld) [#/Vol]6.2 10*3/uL1.8-7.7FOhioHealth Grant Medical CenterNeutrophils/100 WBC Auto (Bld)Ordered By: Abdullahi Wilson on 15-05-3969Fokeqzyioib/100 WBC (Bld)65.4 %.[facility] No Panel InformationOrdered By: Abdullahi Wilson on 34-72-0291Mqrqdapjm GFR (CKD-EPI)42.789 mL/MinGalion HospitalPharmacy Creatinine Clearance (Chem54.64[facility] HospitalNucleated erythrocytes [Presence] in Blood by Automated countOrdered By: Abdullahi Wilson on 07-12-2023 Nucleated RBC Auto Ql (Bld)0.1 /100{WBC}0-0.5FOhioHealth Grant Medical Center Platelet mean volume Auto (Bld) [Entitic vol]Ordered By: Abdullahi Wilson on 87-52-5376Vlgypqdd mean volume (Bld) [Entitic vol]9.1 fL6.6-10.1FOhioHealth Grant Medical CenterPlatelets Auto (Bld) [#/Vol]Ordered By: Abdullahi Wilson on 10-21-3576Eochbfria (Bld) [#/Vol]233 10*3/kO269-322BmjjywafkGalion HospitalPotassium [Moles/volume] in Serum or PlasmaOrdered By: Abdullahi Wilson on 04-90-1341Dfqxeriea [Moles/Vol]3.9 mmol/L3.5-5.1FOhioHealth Grant Medical CenterProtein [Mass/volume] in Serum or PlasmaOrdered By: Abdullahi Wilson on 80-11-4104Utdkjnz [Mass/Vol]7.0 g/dL6.4-8.9[facility] Prothrombin time (PT)Ordered By: Abdullahi Wilson on 35-58-6505DQ Coag (PPP) [Time]12.1 s9.0-12.9[facility] HospitalComment on above:A hematocrit value greater than 55% may lead to inaccurate results in coagulation testing. Patientshaving hematocrit values >55% require a special collection tube for coagulation studies. Please contact the laboratory at [phone] for redraw instructions.RBC Auto (Bld) [#/Vol]Ordered By: Abdullahi Wilson on 17-77-1431LME (Bld) [#/Vol]4.63 10*6/uL3.90-5.60[facility] Centererum or plasma albumin/globulin mass ratioOrdered By: Abdullahi Wilson on 44-44-8920Jajelcw/Globulin [Mass ratio]1.3 {ratio}[facility] Centererum or plasma anion gap determinationOrdered By: Abdullahi Wilson on 89-18-6059Tzzsy gap [Moles/Vol]13.4 mmol/L6.0-15.0[facility] Centerodium [Moles/volume] in Serum or PlasmaOrdered By: Abdullahi Wilson on 56-43-0831Kpkltn [Moles/Vol]136 mmol/I600-189SmqvqsalsGalion Hospital Troponin I.cardiac [Mass/volume] in Serum or Plasma by Detection limit <= 0.01 ng/Ordered By: Abdullahi Wilson on 56-40-5320Rdcmrmsr I.cardiac DL <= 0.01 ng/mL [Mass/Vol]4.6 pg/mL0.0-20.0[facility] HospitalUrea nitrogen [Mass/volume] in Serum or PlasmaOrdered By: Abdullahi Wilson on 98-67-4400Ciyp nitrogen [Mass/Vol]16 mg/dL7-25[facility] HospitalWBC Auto (Bld) [#/Vol]Ordered By: Abdullahi Wilson on 62-85-3941IVL (Bld) [#/Vol]9.5 10*3/uL 4.1-10.5FOhioHealth Grant Medical CenterPatient Educationon 06-12-2889Jndepcq EducationUrology Benign Prostatic Hyperplasia Benign prostatic hyperplasia [...] Follow these instructions at home: ? Take amyl-obp-veodkod and prescription medicines only as told by [...] from the medicine (more content not included)... [facility] HospitalRetail - Clinical Noteon 38-85-4620Vqbmuk - Clinical [id number]#1.00TIFFNormalSt. Mary'S Medical CenterUrology Office/Clinic Noteon 14-57-4975Esgvhuf Office/Clinic Note Chief Complaint S/p to Cysto [...] Information SOLEDAD HERRERA, Yeyo Blum, URL [facility] [place] [id number]- Additional Instructions: 1 month w/ cath volumes [...] CHF (congestive heart failure) (more content not included)...[facility] HospitalComment on above: Result Comment: Electronically Signed By: Yeyo ROWE MD\.br\Date and Time Signed: 06/02/23 12:16 EST\.br\Electronically Co-Signed By: Mattie Foster.br\Date and Time Co-Signed: 06/02/2312:04 ESTPatient Educationon 05-03-2023 Patient EducationNoPremier HealthPathology Noteon 05-01-2023 Pathology [id number]#1.00TIFSelect Medical Specialty Hospital - Cincinnati NorthLab Reportson 46-06-0440Lrm Reports [id number]#1.00TIFSelect Medical Specialty Hospital - Cincinnati NorthOperative Reporton 55-74-4298Tcfuqbhee Report [id number]#1.00TIFSelect Medical Specialty Hospital - Cincinnati NorthPatient Correspondenceon 24-84-5327Vvqmjqf Correspondence [id number]#1.00TIFFCleveland Clinic Mercy HospitalLab Reportson 23-72-3060Qpj Reports [id number]#1.00TIFSelect Medical Specialty Hospital - [facility] NorthRAD - MISCon 14-02-1353NPT - MISC [id number]#1.00TIFFCleveland Clinic Mercy HospitalPatient Correspondenceon 21-33-3282Cgumibm Correspondence [id number]#1.00TIFSelect Medical Specialty Hospital - Cincinnati NorthFormson [id number]#1.00TIFF [facility] Mer[facility] HospitalA1C HEMOGLOBINon 43-23-5516BrI2o (Bld) [Mass fraction]7.5 %[place] Other HbA1c (Bld) [Mass fraction]on 98-13-6760K5U HEMOGLOBIN [place] Other Lab Reportson 44-38-3266Wqv Reports [id number]#1.00TIFFNoPremier HealthOffice Visit (Cardiology)on 97-42-4884Jairue-up visitDiagnoses/Problems Assessed 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 [facility] DO Work Phone: Tobacco use status CPHSb) NoMP-[facility] [place] 250 DO Work Phone: Tobacco Screening.YesMP-[facility] 250 DO Work Phone: NO CARDIAC STRESS/REST INJECTIONon 52-03-7732MOP CARDIAC STRESS/REST INJECTIONMRN: [id number] Patient Name: MYRA PICKARD STUDY: MYOCARDIAL PERFUSION STRESS TEST WITH EXERCISE CONVERTED TO LEXISCAN Performing facility: [facility], [address] [place] [address] Provider: Dolores Pickard RN, V/[employer] SIGNAL OFFICER PCP: Dr. Teresa Lynch Supervising provider: Pascale Arnold MD, FACC INDICATION: Anginal equivalent CAD; HISTORY: Gender: M; Age: 57 y/o ; Height: 182.88 cm; Weight: 97.8008859 kg. High Cholesterol; CAD; Diabetes; HTN; Palpitations; Chest Pain; Quit smoking unknown years ago. COMPARISON: Previous nuclear testing completed at [facility]. ACCESSION NUMBER(S): [id number]; [id number]; [id number] ORDERING CLINICIAN: DOLORES PICKARD TECHNIQUE: ONE DAY [...] the perfusion study. 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 Chief Complaint Routine f/u: 'I [...] (more content not included)...NormalUH Touchworks Tobacco Screening.on 48-93-2331Gyego depression screening assessmentNo-[facility] 600 DO Work Phone: Tobacco use status CPHSb) NoMP-[facility] 600 DO Work Phone: Alanine aminotransferase [Enzymatic activity/volume] in Serum or PlasmaOrdered By: Teresa Lynch on 29-23-9801GEA [Catalytic activity/Vol]15 U/L7-52[facility] HospitalAlbumin [Mass/volume] in Serum or Plasma by Bromocresol green (BCG) dye binding methoOrdered By: Teresa Lynch on 82-30-2981Gehgvht BCG dye [Mass/Vol]4.1 g/dL3.5-5.7FOhioHealth Grant Medical CenterAlkaline phosphatase [Enzymatic activity/volume] in Serum or PlasmaOrdered By: Teresa Lynch on 73-76-0922MTV [Catalytic activity/Vol]116 U/L 34-104Galion HospitalAspartate aminotransferase [Enzymatic activity/volume] in Serum or PlasmaOrdered By: Teresa Lynch on 26-71-0134WNB [Catalytic activity/Vol]15 U/I71-85ApjgdscgtGalion HospitalBasophils Auto (Bld) [#/Vol]Ordered By: Teresa Lynch on 05-99-6043Zkymagdru (Bld) [#/Vol]0.1 10*3/uL0.0-0.2FOhioHealth Grant Medical CenterBasophils/100 WBC Auto (Bld) Ordered By: Teresa Lynch on 95-82-9669Cebkmgftz/100 WBC (Bld)1.1 %.[facility] HospitalBilirubin.total [Mass/volume] in Serum or PlasmaOrdered By: Teresa Lynch on 33-41-8112Chhvknkqw [Mass/Vol]0.4 mg/dL0.3-1.0[facility] HospitalCalcium [Mass/volume] in Serum or PlasmaOrdered By: Teresa Lynch on 99-40-2705Ydbxqta [Mass/Vol]8.8 mg/dL8.6-10.3FOhioHealth Grant Medical CenterCarbon dioxide, total [Moles/volume] in Serum or PlasmaOrdered By: Teresa Lynch on 34-96-9724LG4 [Moles/Vol]27.2 mmol/L21.0-31.0[facility] HospitalChloride [Moles/volume] in Serum or PlasmaOrdered By: Teresa Lynch on 08-84-9818Lrxfkoei [Moles/Vol]99 mmol/P76-763YuyukupiyGalion Hospital Cholesterol [Mass/volume] in Serum or PlasmaOrdered By: Teresa Lynch on 09-27-2022 Cholesterol [Mass/Vol]104 mg/eZ882-560GxweenwzlGalion HospitalComment on above:Chol less than 200 mg/dl low riskChol 201-239 mg/dl borderline riskChol 240 mg/dl and greater high riskCholesterol in LDL Calc [Mass/Vol]Ordered By: Teresa Lynch on 63-27-1686Crfavmnkdbb in LDL [Mass/Vol]TNPGalion HospitalComment on above:Test not performedCholesterol in LDL [Mass/volume] in Serum or PlasmaOrdered By: Teresa Lynch on 75-65-2420Bkuvdsmwqne in LDL [Mass/Vol]38 mg/dL0-100Galion HospitalComment on above: LDL ATP III CLASSIFICATIONLDL less than 100 mg/dL OptimalLDL 100-129 mg/dL Near or above pmloitlGLY985-462 mg/dL Borderline highLDL 160-189 mg/dL HighLDL greater than 189 mg/dL Very highCholesterol in VLDL Calc [Mass/Vol]Ordered By: Teresa Lynch on 86-77-3194Endichwghas in VLDL [Mass/Vol]99 mg/dLGalion HospitalCreatinine [Mass/volume] in Serum or PlasmaOrdered By: Teresa Lynch on 07-16-1172Xaqulpjfci [Mass/Vol]1.84 mg/dL0.70-1.30Gal[facility] HospitalEosinophils Auto (Bld) [#/Vol]Ordered By: Teresa Lynch on 09-27-2022 Eosinophils (Bld) [#/Vol]0.7 10*3/uL0.0-0.45[facility] Eosinophils/100 WBC Auto (Bld)Ordered By: Teresa Lynch on 09-27-2022 Eosinophils/100 WBC (Bld)5.9 %.[facility] HospitalErythrocyte distribution width Auto (RBC) [Ratio]Ordered By: Teresa Lynch on 09-27-2022 Erythrocyte distribution width (RBC) [Ratio]16.0 %12.0-14.8[facility] HospitalGlobulin Calc (S) [Mass/Vol]Ordered By: Teresa yLnch on 09-27-2022 Globulin (S) [Mass/Vol]2.9 g/dLGalion HospitalGlucose [Mass/volume] in Serum or PlasmaOrdered By: Teresa Lynch on 80-22-0807Sqlihvm [Mass/Vol]225 mg/yJ33-563EdsugcaylGalion HospitalComment on above:ADA recommended reference rangeRandom Glucose Reference Range is dependent on time and content of last meal. Glucose of more than 200 mg/dL in a nonstressed, ambulatory subject supports the diagnosisof Diabetes Mellitus.Hematocrit Auto (Bld) [Volume fraction]Ordered By: Teresa Lynch on 46-17-7343Tgbaiprrfa (Bld) [Volume fraction]41.0 %38.8-50.0[facility] HospitalHemoglobin [Mass/volume] in BloodOrdered By: Teresa Lynch on 14-71-7050Wqocvftieq (Bld) [Mass/Vol]13.2 g/dL13.0-17.0[facility] HospitalLeukocytes [#/volume] corrected for nucleated erythrocytes in Blood by Automated coun Ordered By: Teresa Lynch on 58-48-0979HGX corrected for nucl RBC Auto (Bld) [#/Vol]12.4 10*3/uL4.1-10.5FOhioHealth Grant Medical CenterLymphocytes Auto (Bld) [#/Vol]Ordered By: Teresa Lynch on 89-96-0190Vgwgfssaklh (Bld) [#/Vol]2.3 10*3/uL1.00-4.8Gal[facility] HospitalLymphocytes/100 WBC Auto (Bld) Ordered By: Teresa Lynch on 08-10-3711Acjbzrutuuj/100 WBC (Bld)18.2 %.[facility] HospitalH Auto (RBC) [Entitic mass]Ordered By: Teresa Lynch on 98-51-2445QLN (RBC) [Entitic mass]23.9 pg27.5-35.2FOhioHealth Grant Medical CenterMCHC Auto (RBC) [Mass/Vol]Ordered By: Teresa Lynch on 80-87-8701GZXW (RBC) [Mass/Vol]32.2 g/dL32.5-35.6FOhioHealth Grant Medical CenterMCV Auto (RBC) [Entitic vol]Ordered By: Teresa Lynch on 01-33-7867DFJ (RBC) [Entitic vol]74.3 fL 83.5-101Gal[facility] HospitalMonocytes Auto (Bld) [#/Vol]Ordered By: Teresa Lynch on 46-51-7176Ncdkglpnv (Bld) [#/Vol]1.0 10*3/uL0.0-0.8Gal[facility] HospitalMonocytes/100 WBC Auto (Bld)Ordered By: Teresa Lynch on 60-84-2506Ygczfeupy/100 WBC (Bld)7.9 %.[facility] Neutrophils Auto (Bld) [#/Vol]Ordered By: Teresa Lynch on 85-01-4085Xderrskhyqm (Bld) [#/Vol]8.3 10*3/uL1.8-7.7FOhioHealth Grant Medical CenterNeutrophils/100 WBC Auto (Bld)Ordered By: Teresa Lynch on 09-68-1227Uyuoazgisuq/100 WBC (Bld)66.9 %.Galion HospitalNo Panel InformationOrdered By: Teresa Lynch on 36-74-6511Bmjgipfik GFR (CKD-EPI)42.232 mL/MinGalion Hospital Pharmacy Creatinine Clearance (ChemN/[facility] HospitalNucleated erythrocytes [Presence] in Blood by Automated countOrdered By: Teresa Lynch on 44-08-8780Rtpbznkkr RBC Auto Ql (Bld)0.1 /100{WBC}0-0.5FOhioHealth Grant Medical CenterPlatelet mean volume Auto (Bld) [Entitic vol]Ordered By: Teresa Lynch on 93-85-4509Jtclhqrh mean volume (Bld) [Entitic vol]9.1 fL6.6-10.1 [facility] HospitalPlatelets Auto (Bld) [#/Vol]Ordered By: Teresa Lynch on 83-51-3164Fddnsjdfl (Bld) [#/Vol]209 10*3/qF182-699KurkbwhcqGalion HospitalPotassium [Moles/volume] in Serum or PlasmaOrdered By: Teresa Lynch on 24-07-3748Cckvbqydc [Moles/Vol]4.3 mmol/L3.5-5.1FOhioHealth Grant Medical CenterProtein [Mass/volume] in Serum or PlasmaOrdered By: Teresa Lynch on 80-92-0135Smosxxt [Mass/Vol]7.0 g/dL6.4-8.9[facility] HospitalRBC Auto (Bld) [#/Vol]Ordered By: Teresa Lynch on 84-90-8983TAI (Bld) [#/Vol]5.52 10*6/uL3.90-5.60[facility] Centererum or plasma albumin/globulin mass ratioOrdered By: Teresa Lynch on 20-75-2248Vkkigtk/Globulin [Mass ratio]1.4 {ratio}[facility] Centererum or plasma anion gap determinationOrdered By: Teresa Lynch on 08-90-8211Vmpwd gap [Moles/Vol]14.1 mmol/L6.0-15.0[facility] Centererum or plasma high density lipoprotein (HDL) cholesterol measurementOrdered By: Teresa Lynch on 09-27-2022 Cholesterol in HDL [Mass/Vol]21 mg/hG70-95HpiwqcqblGalion Hospital Comment on above:HDL CHOL ATP-III CLASSIFICATION Cardiovascular RiskHDL > or equal to 60 mg/dL LOWHDL < 40 mg/dL HIGHSerum or plasma total cholesterol/high density lipoprotein (HDL) cholesterol mass ratOrdered By: Teresa Lynch on 51-08-4601Zmzadhrngzv.total/Cholesterol in HDL [Mass ratio]5.0 {ratio}<5.0 [facility] Centerodium [Moles/volume] in Serum or PlasmaOrdered By: Teresa Lynch on 17-50-1820Sxrcxq [Moles/Vol]136 mmol/M587-893WhxgivtqiGalion HospitalThyrotropin [Units/volume] in Serum or PlasmaOrdered By: Teresa Lynch on 32-46-7619YGT Qn3.62 m[IU]/L0.45-5.33[facility] HospitalTriglyceride [Mass/volume] in Serum or PlasmaOrdered By: Teresa Lynch on 63-44-9669Yukvffinjugy [Mass/Vol]497 mg/dL0-149[facility] Comment on above:If the triglyceride result [...] Serum or PlasmaOrdered By: Teresa Lynch on 32-13-0859Ojwtg [Mass/Vol]6.2 mg/dL2.4-7.6FOhioHealth Grant Medical CenterUrea nitrogen [Mass/volume] in Serum or PlasmaOrdered By: Teresa Lynch on 52-31-2077Konk nitrogen [Mass/Vol]15 mg/dL7-25[facility] HospitalWBC Auto (Bld) [#/Vol]Ordered By: Teresa Lynch on 43-57-1256RBM (Bld) [#/Vol]12.4 10*3/uL4.1-10.5 [facility] HospitalA1C HEMOGLOBINon 62-12-6557EtZ2s (Bld) [Mass fraction]%[employer] [facility] [employer] Other HbA1c (Bld) [Mass fraction]on 00-93-4686W8R HEMOGLOBIN [facility] [employer] Other Tobacco Screening.on 81-34-4419Ljvxl depression screening assessmentSauk Centre Hospital 250 DO Work Phone: Tobacco use status CPHSb) NoM-[facility] [place] 250 DO Work Phone: A1C HEMOGLOBINon 33-22-2155GcV1z (Bld) [Mass fraction] 11.8 %[facility] [employer] Other HbA1c (Bld) [Mass fraction]on 65-46-2781O8J HEMOGLOBIN [facility] [employer] Other Vital Signs Date TimeVital SignValuePerforming TdagwjufcTyspijtb77-98-9388 10:51-0400Body iwrdhq894.9 cmMokaren Montes MD Work Phone: 1([phone])[facility] [employer] Oukkcv57-90-8261 10:51-0400Body mass index (BMI) [Ratio]28.07 kg/p0LpspdryMike Montes MD Work Phone: 1(653)[facility]09-25-2025 10:51-0400Body .89 kgMokaren Montes MD Work Phone: 1(690)[facility]09-25-2025 10:51-0400Diastolic blood wcrhsxun36 mm[Hg]Mike Montes MD Work Phone: 1(327)[facility]09-25-2025 10:51-0400Heart rate 75 /minMokaren Montes MD Work Phone: 1(471)[facility]09-25-2025 10:51-6321UjJ9% (BldA) [Mass fraction]99 %Mike Montes MD Work Phone: 1(524)[facility]09-25-2025 10:51-0400Systolic blood lmnjeecx779 mm[Hg]Mike Montes MD Work Phone: 1(093)[facility]09-03-2025 09:05-0400Diastolic blood kbpfogpm92 mm[Hg]Fabiana [address] [place], [place] 1566309-03-2025 09:05-0400Heart rate71 /minEly [address] [place], [place] 1566309-03-2025 09:05-0400Systolic blood hofssyyb584 mm[Hg]Fabiana [address] [place], [place] 1566306-03-2025 16:13-0400Body cailkh588.88 cmTeresa Fraustos DO Work Phone: [facility]06-03-2025 16:13-0400 Body mass index (BMI) [Ratio]28.2 kg/h3OsxroTeresa Fraustos DO Work Phone: [facility]06-03-2025 16:13-0400 Body jbsnzy45.34 kgBrygorge Fraustos DO Work Phone: [facility]06-03-2025 16:13-0400 Diastolic blood hjuivfhv66 mm[Hg]Teresa Fraustos DO Work Phone: [facility]06-03-2025 16:13-0400 Heart rate68 /minPhillipan Jetts DO Work Phone: [address] [place], [place] 5874406-03-2025 16:13-0400 Respiratory rate18 /minPhillipan Jetts DO Work Phone: [facility]06-03-2025 16:13-0400 SaO2% (BldA) [Mass fraction]96 %Teresa Fraustos DO Work Phone: [facility]06-03-2025 16:13-0400 Systolic blood lnkfehhl780 mm[Hg]Teresagorge Fraustos DO Work Phone: [facility]06-03-2025 13:50-0400 Body pnuqtv10.16 kgTeresa Fraustos DO Work Phone: [facility]06-03-2025 13:50-0400 Diastolic blood bvmlfzyu50 mm[Hg]Teresa Jetts DO Work Phone: [facility]06-03-2025 13:50-0400 Heart rate70 /minPhillipan Kuns DO Work Phone: [facility]06-03-2025 13:50-0400 Respiratory rate18 /minBryan Kuns DO Work Phone: [facility]06-03-2025 13:50-0400 SaO2% (BldA) [Mass fraction]98 %Teresa Fraustos DO Work Phone: [facility]06-03-2025 13:50-0400 Systolic blood cusgsagz581 mm[Hg]Teresagorge Lynch DO Work Phone: [facility]05-09-2025 13:40-0400 Heart rate62 /minTeresa Lynch DO Work Phone: [facility]05-09-2025 13:40-0400 Respiratory rate20 /minTeresa Fraustos DO Work Phone: 1(804)[address]05-09-2025 08:00-0400 Body ffrwyrcbeuk56.3 [degF]Teresa Lynch DO Work Phone: 1(111)7-[address] [place], [place] 2617805-09-2025 08:00-0400 Diastolic blood bnwbkhaw67 mm[Hg]Teresa Rory DO Work Phone: 1(758)1-[address] [place], [place] 2617805-09-2025 08:00-0400 SaO2% (BldA) [Mass fraction]96 %Teresa Lynch DO Work Phone: [phone]05-09-2025 08:00-0400 Systolic blood rktqqawk951 mm[Hg]Teresa Jettjoe DO Work Phone: 1(548)6-[address] [place], [place] 2617805-09-2025 06:00-0400 Body guahmf20.6 kgTeresa Lynch DO Work Phone: 1(665)183-[address] [place], [place] 2617805-08-2025 20:48-0400 Body wksjqu581.88 cmTeresa Jetts DO Work Phone: 1(938)6-[address] [place], [place] 2617805-08-2025 20:30-0400 Diastolic blood mm[Hg]Teresa Fraustos DO Work Phone: 1(038)947-[address] [place], [place] 2617805-08-2025 20:30-0400 Heart rate78 /minTeresa Lynch DO Work Phone: 1(286)[address]05-08-2025 20:30-0400 Respiratory rate18 /minTeresa Fraustos DO Work Phone: 1(572)[address] [place], [place] 2957205-08-2025 20:30-0400 SaO2% (BldA) [Mass fraction]97 %Teresa Fraustos DO Work Phone: 1(909)[address] [place], [place] 2957205-08-2025 20:30-0400 Systolic blood qxsinfeq711 mm[Hg]Teresa Fraustos DO Work Phone: 1(490)[address] [place], [place] 2957205-08-2025 14:36-0400 Body pcoxer091.88 cmTeresa Fraustos DO Work Phone: 1(777)[address] [place], [place] 2957205-08-2025 14:36-0400 Body wzvmkxdpapa17.6 [degF]Teresa Fraustos DO Work Phone: 1(811)[address] [place], [place] 2957205-08-2025 14:36-0400 Body jhzomw81.45 kgTeresa Fraustos DO Work Phone: 1(866)[address] [place], [place] 2957203-28-2025 09:28-0400 Body tkusxj537.88 cmTeresa Fraustos DO Work Phone: 1(618)[address] [place], [place] 2957203-28-2025 09:28-0400 Body mass index (BMI) [Ratio]27.1 kg/z8KmktjTeresa Fraustos DO Work Phone: 1(074)6-[address] [place], [place] 2617803-28-2025 09:28-0400 Body .71 kgTeresa Fraustos DO Work Phone: 1(326)[address] [place], [place] 2957203-28-2025 09:28-0400 Diastolic blood pprdsiae01 mm[Hg]Teresa Fraustos DO Work Phone: 1(163)[address] [place], [place] 2957203-28-2025 09:28-0400 Heart rate82 /minTereas Fraustos DO Work Phone: 1(799)[address] [place], [place] 2957203-28-2025 09:28-0400 Respiratory rate16 /minTeresa Fraustos DO Work Phone: 1(767)7-[address] [place], [place] 2617803-28-2025 09:28-0400 SaO2% (BldA) [Mass fraction]99 %Teresa Fraustos DO Work Phone: 1(682)5-[address] [place], [place] 2617803-28-2025 09:28-0400 Systolic blood fdonxado577 mm[Hg]Teresa rFaustos DO Work Phone: 1(626)[address]03-11-2025 15:30-0400 Heart rate66 /minTeresa Fraustos DO Work Phone: 1(477)[address]03-11-2025 15:30-0400 Respiratory rate20 /minTeresa Fraustos DO Work Phone: 1(497)[address]03-11-2025 15:14-0400 Diastolic blood mm[Hg]Teresa Fraustos DO Work Phone: 1(526)[address]03-11-2025 15:14-0400 SaO2% (BldA) [Mass fraction]99 %Teresa Fraustos DO Work Phone: 1(477)[address]03-11-2025 15:14-0400 Systolic blood twutivhg917 mm[Hg]Teresa Frasutos DO Work Phone: 1(831)[address]03-11-2025 08:21-0400 Body hxxayckjcyy27.6 [degF]Teresa Fraustos DO Work Phone: 1(438)[address]03-11-2025 06:48-0400 Body slereb33.5 kgTeresa Fraustos DO Work Phone: 1(760)[address]03-09-2025 14:57-0400 Body flqqya485.88 cmPhillipan Jetts DO Work Phone: 1(651)[address]03-09-2025 06:29-0400 Body zuqesu903.88 cmPhillipan Kuns DO Work Phone: [facility]03-09-2025 06:29-0400 Body gbsrcnayfsm50 [degF]Teresa Lynch DO Work Phone: [facility]03-09-2025 06:29-0400 Body hohjhc33.3 kgTeresa Lynch DO Work Phone: [facility]03-09-2025 06:29-0400 Diastolic blood modgtaqu58 mm[Hg]Teresa Lynch DO Work Phone: [facility]03-09-2025 06:29-0400 Heart rate92 /minTeresa Lynch DO Work Phone: [facility]03-09-2025 06:29-0400 Respiratory rate16 /minTeresa Lynch DO Work Phone: [facility]03-09-2025 06:29-0400 SaO2% (BldA) [Mass fraction]99 %Teresa Lynch DO Work Phone: [facility]03-09-2025 06:29-0400 Systolic blood hjtnnnli797 mm[Hg]Teresa Lynch DO Work Phone: [facility]02-28-2025 09:02-0500 Blood Pressure LocationJENNIFER RASHI [facility]02-28-2025 09:02-0500Body vuitmsitceu26.98 [degF]MARYBEL RASHI [facility]02-28-2025 09:02-0500Diastolic blood ethqyvke48 mm[Hg]MARYBEL RASHI [facility]02-28-2025 09:02-0500Heart rate80 /minJENNDAMION RASHI [facility]02-28-2025 09:02-0500Respiratory rate18 /minMARYBEL VANG [facility]02-28-2025 09:02-0500Systolic blood mm[Hg]MARYBEL VANG [facility]12-23-2024 14:47-0500Blood Pressure LocationPatrick [employer] [facility]12-23-2024 14:47-0500Body iamlikcqono37.6 [degF]Yeyo ROWE [facility]12-23-2024 14:47-0500Diastolic blood mm[Hg]Yeyo ROWE [facility]12-23-2024 14:47-0500Heart rate70 /minPatrick ROWE [facility]12-23-2024 14:47-0500Respiratory rate16 /minPatrick ROWE [facility]12-23-2024 14:47-0500Systolic blood mm[Hg]Yeyo ROWE [facility]12-03-2024 16:35-0500Body jonawpuultr21 [degF]Teresa Lynch DO Work Phone: [facility]12-03-2024 16:35-0500 Diastolic blood gzojltvq77 mm[Hg]Teresa Lynch DO Work Phone: [facility]12-03-2024 16:35-0500 Heart rate79 /minTeresa Lynch DO Work Phone: [facility]12-03-2024 16:35-0500 Respiratory rate16 /minTeresa Lynch DO Work Phone: [facility]12-03-2024 16:35-0500 SaO2% (BldA) [Mass fraction]99 %Teresa Lynch DO Work Phone: [facility]12-03-2024 16:35-0500 Systolic blood kdeinuzv35 mm[Hg]Teresa Lynch DO Work Phone: [facility]11-20-2024 11:04-0500 Diastolic blood bywthiua90 mm[Hg]Kait Dan MD Work Phone: 1(060)870-[address] [place], [place] 9201111-20-2024 11:04-0500 Heart rate86 /Ab Dan MD Work Phone: 1(058)789-[address] [place], [place] 9201111-20-2024 11:04-0500 SaO2% (BldA) [Mass fraction]99 %Kait Dan MD Work Phone: [address] [place], [place] 5100811-20-2024 11:04-0500 Systolic blood elzpwwer026 mm[Hg]Kait Dan MD Work Phone: [address] [place], [place] 5100811-19-2024 14:30-0500 Diastolic blood midrcdys59 mm[Hg]Kait Dan MD Work Phone: [facility]11-19-2024 14:30-0500 Heart rate74 /Ab Dan MD Work Phone: [facility]11-19-2024 14:30-0500 Respiratory rate18 /Ab Dan MD Work Phone: [facility]11-19-2024 14:30-0500 SaO2% (BldA) [Mass fraction]98 %Kait Dan MD Work Phone: [facility]11-19-2024 14:30-0500 Systolic blood bryvpjql550 mm[Hg]Kait Dan MD Work Phone: 1(449)[address]11-19-2024 12:52-0500 Body wvgtow542.88 cmAtae Dan MD Work Phone: 1(350)[address] [place], [place] 7902111-19-2024 12:52-0500 Body tsoojg12.45 kgKait Dan MD Work Phone: 1(402)[address] [place], [place] 7902110-31-2024 16:48-0400 Body qslmqy98.45 kgKait Dan MD Work Phone: 1(231)[address] [place], [place] 7902110-31-2024 14:00-0400 Diastolic blood mm[Hg]Kait Dan MD Work Phone: 1(917)[address] [place], [place] 7902110-31-2024 14:00-0400 Heart rate86 /minKait Dan MD Work Phone: 1(834)[address] [place], [place] 7902110-31-2024 14:00-0400 Respiratory rate18 /Ab Dan MD Work Phone: 1(931)[address] [place], [place] 7902110-31-2024 14:00-0400 SaO2% (BldA) [Mass fraction]97 %Kait Dan MD Work Phone: 1(693)[address] [place], [place] 7902110-31-2024 14:00-0400 Systolic blood jfygbpjl464 mm[Hg]Kait Dan MD Work Phone: 1(141)[address] [place], [place] 7902110-17-2024 10:30-0400 Diastolic blood dqtrohyo40 mm[Hg]MD Kait Dan Work Phone: 1(955)346-[address] [place], [place] 9201110-17-2024 10:30-0400 Heart rate95 /minMD Kait Dan Work Phone: 1(427)953-[address] [place], [place] 9201110-17-2024 10:30-0400 Systolic blood tqpgljcu221 mm[Hg]MD Kait Dan Work Phone: 1(336)[address] [place], [place] 4742010-15-2024 17:26-0400 Body niengtvcfdu48.01 [degF]Guero Tam DO Work Phone: [facility]RegulatoryB[facility] Omrhko62-54-1664 17:26-0400Diastolic blood jrscyocb65 mm[Hg]Guero Mclong DO Work Phone: [facility] [employer] Swpnxk47-12-7015 17:26-0400Heart rate 85 /minDennis Jesusitalong DO Work Phone: [facility] [employer] Hwrpte98-92-4183 17:26-0400 Respiratory rate19 /minDennis Jesusitalong DO Work Phone: [facility]RegulatoryB[facility] Kneauc65-71-6498 17:26-6700XrU9% (BldA) [Mass fraction]96 %Guero Harrisng DO Work Phone: [facility] [employer] Yueeve35-87-7831 17:26-0400Systolic blood tjjypuaz874 mm[Hg]Guero Harrisng DO Work Phone: [facility] [employer] Mbmhnn78-22-9529 18:27-0400Body mass index (BMI) [Ratio]26.75 kg/n2Pjydkb Furlong DO Work Phone: [facility] [employer] Teeqaj88-21-8188 18:27-0400Body vqimlxqjzsq21.01 [degF]Guero Harrisng DO Work Phone: [facility] [employer] Gtigrj23-87-5511 18:27-0400Body usxhvx80.45 kgDenjunito Harrisng DO Work Phone: [facility]RegulatoryB[facility] Wgbhlm84-58-6708 18:27-0400Diastolic blood hkakhkai94 mm[Hg]Guero Harrisng DO Work Phone: [facility]ulatory[facility] Prgbfb98-45-1361 18:27-0400Heart rate 84 /minDadeolais Jesusitalong DO Work Phone: [facility] [employer] Gfzgww94-37-6629 18:27-0400 Respiratory rate18 /minDennis Jesusitalong DO Work Phone: [facility]10-11-2024 18:27-1477IrI7% (BldA) [Mass fraction]95 %Guero Tam DO Work Phone: [facility]10-11-2024 18:27-0400Systolic blood iaaqxuha617 mm[Hg]Guero Tam DO Work Phone: [facility]10-09-2024 11:08-0400Body irvfehelskn87.8 [degF]MD Kait Dan Work Phone: [facility]10-09-2024 11:08-0400 Diastolic blood itbbqwhm91 mm[Hg]MD Kait Dan Work Phone: 1(145)643-[address] [place], [place] 9201110-09-2024 11:08-0400 Heart rate77 /minMD Kait Dan Work Phone: 1(044)188-[address] [place], [place] 9201110-09-2024 11:08-0400 Respiratory rate16 /minMD Kait Dan Work Phone: 1(068)091-[address] [place], [place] 9201110-09-2024 11:08-0400 SaO2% (BldA) [Mass fraction]99 %MD Kait Dan Work Phone: 1([phone]10-09-2024 11:08-0400 Systolic blood yqnhewzr108 mm[Hg]MD Kait Dan Work Phone: [facility]10-09-2024 06:00-0400 Body .2 kgMD Kait Dan Work Phone: 1(228)873-[address] [place], [place] 9201110-05-2024 12:29-0400 Body xdmbel471.34 cmMD Kait Dan Work Phone: 1([phone]10-04-2024 21:00-0400 Diastolic blood hohvetcd14 mm[Hg]MD Kait Dan Work Phone: 1([phone]10-04-2024 21:00-0400 Heart rate93 /minMD Kait Dan Work Phone: 1(645)486-[address] [place], [place] 9201110-04-2024 21:00-0400 SaO2% (BldA) [Mass fraction]97 %MD Kait Dan Work Phone: 1(850)005-[address] [place], [place] 9201110-04-2024 21:00-0400 Systolic blood mm[Hg]MD Kait Dan Work Phone: 1(744)[address]10-04-2024 20:30-0400 Respiratory rate16 /minMD Kait Dan Work Phone: [phone] [address]10-04-2024 20:07-0400 Body lntiurexnpt03.4 [degF]MD Kait Dan Work Phone: 1([phone])[address]10-04-2024 14:10-0400 Body aovxwk611.34 cmMD Kait Dan Work Phone: [phone] [place], [place] [address]2010-04-2024 14:10-0400 Body pmcyzy61.3 kgMD Kait Dan Work Phone: [phone]10-02-2024 15:51-0400 Body pnfqjocpert60.1 [degF]MD Kait Dan Work Phone: [phone]10-02-2024 15:51-0400 Diastolic blood tedbdmhd03 mm[Hg]MD Kait Dan Work Phone: [phone]10-02-2024 15:51-0400 Heart rate78 /minMD Kait Dan Work Phone: 1(043)827-[address] [place], [place] 9201110-02-2024 15:51-0400 Respiratory rate16 /minMD Kait Dan Work Phone: 1(087)[phone] [place], [place] 9201110-02-2024 15:51-0400 SaO2% (BldA) [Mass fraction]97 %MD Kait Dan Work Phone: [phone] [place], [place] 9201110-02-2024 15:51-0400 Systolic blood yvpttjqq539 mm[Hg]MD Kait Dan Work Phone: [facility]10-02-2024 05:29-0400 Body xddjpa30.9 kgMD Kait Dan Work Phone: 1([phone])[phone] [place], [place] 9201110-01-2024 14:26-0400 Body vhyqov959.88 cmMD Kait Dan Work Phone: [phone]09-29-2024 17:00-0400 Diastolic blood vjxbenqx06 mm[Hg]MD Kait Dan Work Phone: 1([phone])[phone] [place], [place] [address]201109-29-2024 17:00-0400 Heart rate86 /minMD Kait Dan Work Phone: [phone])[address]09-29-2024 17:00-0400 Respiratory rate20 /minMD Kait Dan Work Phone: 1(509)[address]09-29-2024 17:00-0400 SaO2% (BldA) [Mass fraction]100 %MD Kait Dan Work Phone: [phone])[phone] [place], [place] [address]201109-29-2024 17:00-0400 Systolic blood ejpgropu432 mm[Hg]MD Kait Dan Work Phone: 1(857)827-[address] [place], [place] 9201109-29-2024 13:45-0400 Body uxrzuu419.88 cmMD Kait Dan Work Phone: 1(577)368-[address] [place], [place] 9201109-29-2024 13:45-0400 Body dycoxwxmsrq26.9 [degF]MD Kait Dan Work Phone: 1(804)309-[address] [place], [place] 9201109-29-2024 13:45-0400 Body fshmmi24.5 kgMD Kait Dan Work Phone: 1(178)653-[address] [place], [place] 9201109-26-2024 09:27-0400 Body .9 cmMike Montes MD Work Phone: 1(262)[facility] [employer] [facility]-26-2024 09:27-0400Body mass index (BMI) [Ratio]26.85 kg/h5Zipnopvkaren Montes MD Work Phone: 1(678)[facility] [employer] Efrixj00-57-9710 09:27-0400Body ltewbfldjcd45.01 [degF]Mike Montes MD Work Phone: 1(234)[facility] [employer] Igusll25-35-5756 09:27-0400Body kxysqd06.81 kgMike Montes MD Work Phone: 1(307)[facility] [employer] Xsnbzf18-58-2135 09:27-0400Diastolic blood mghigrqu08 mm[Hg]Mike Montes MD Work Phone: 1(406)[facility] [employer] Cpgrvn31-67-6099 09:27-0400Heart rate 77 /minMike Montes MD Work Phone: 1(933)[facility] [employer] Rirmzw19-77-5489 09:27-0400 Respiratory rate20 /minMike Montes MD Work Phone: 1(640)[facility] [employer] Vjpaaa85-14-4820 09:27-1479XqB3% (BldA) [Mass fraction]99 %Mike Montes MD Work Phone: 1(382)[facility] [employer] Vexyib20-09-4988 09:27-0400Systolic blood kjbeuzsx26 mm[Hg]Mike Montes MD Work Phone: 1(814)[facility] [employer] Terqce91-32-5051 14:52-0400Body mass index (BMI) [Ratio]26.65 kg/c5Ndqsig Furlong DO Work Phone: [facility] [employer] Qahcve37-89-5430 14:52-0400Body jgljktwaiqk00.01 [degF]Guero Furlong DO Work Phone: [facility] [employer] Lbujux40-74-0801 14:52-0400Body ruzpkc89.13 kgDennis Furlong DO Work Phone: [facility] [employer] Uzdvil60-67-6099 14:52-0400Diastolic blood uabdpibt82 mm[Hg]Guero Furlong DO Work Phone: [facility] [employer] Dpcpku01-02-5416 14:52-0400Heart rate 95 /minDennis Furlong DO Work Phone: [facility]09-25-2024 14:52-0400 Respiratory rate18 /minDennis Furlong DO Work Phone: [facility]09-25-2024 14:52-5049VpH1% (BldA) [Mass fraction]98 %Guero Furlong DO Work Phone: [facility]09-25-2024 14:52-0400Systolic blood mm[Hg]Guero Mclong DO Work Phone: [facility]09-18-2024 17:40-0400Hourly RoundingMohamed Simon [address]09-18-2024 17:40-0400 Promise to ReturnMohamed Simon [address]09-18-2024 16:32-0400 Hourly RoundingMohamed Simon [address]09-18-2024 16:32-0400 Promise to ReturnMohamed Simon [address]09-18-2024 15:00-0400 Hourly RoundingMohamed Simon [address]09-18-2024 15:00-0400 Promise to ReturnMohamed Simon [address]09-18-2024 10:51-0400Heart rate70 /minMohamed Simon [address] [place], [place] 2834809-18-2024 10:51-6324KiZ5% (BldA) [Mass fraction]100 %Mike Halean [address]09-18-2024 10:47-0400Body ksaikjkkotj26.06 [degF]Mike Simon [address] [place], [place] 0466709-18-2024 10:46-0400 Diastolic blood mm[Hg]Mike Halean [address] [place], [place] 0466709-18-2024 10:46-0400Mean blood qagbghtc18 mm[Hg]Mike Simon [address] [place], [place] 0466709-18-2024 10:46-0400 Systolic blood ijxxcjyy741 mm[Hg]Mike Simon [address] [place], [place] 0466709-18-2024 10:15-0400Blood Pressure LocationMohamed Simon [address] [place], [place] 0466709-18-2024 10:15-0400 Diastolic blood ucxykvtf52 mm[Hg]Mike Halean [address] [place], [place] 0466709-18-2024 10:15-0400Heart rate76 /minMohamed Simon [address] [place], [place] 0466709-18-2024 10:15-0400Mean blood zohewsjt77 mm[Hg][facility]es [address] [place], [place] 0466709-18-2024 10:15-5594CtM9% (BldA) [Mass fraction]100 %[facility] Halean [address] [place], [place] 0466709-18-2024 10:15-0400 Systolic blood wuojwcva811 mm[Hg]Mike Simon [address] [place], [place] 0466709-18-2024 08:27-0400 Diastolic blood jyrhtwwb88 mm[Hg]Mike Simon [address] [place], [place] 0466709-18-2024 08:27-0400 Systolic blood htegeyjk890 mm[Hg]Mike Simon [address] [place], [place] 0466709-18-2024 08:25-0400Heart rate50 /minMohamed Simon [address] [place], [place] 0466709-18-2024 07:36-0400Heart rate68 /minMohamed Simon [address] [place], [place] 0466709-18-2024 07:36-9271ZiN0% (BldA) [Mass fraction]100 %Mike Halean [address] [place], [place] 0466709-18-2024 07:36-0400Mean blood mm[Hg]Mike Halean [address] [place], [place] 0466709-18-2024 07:36-0400Body hlictyqvmdn31.52 [degF]Mike Simon [address] [place], [place] 0466709-18-2024 00:00-0400Blood Pressure LocationMokaren Montes [address] [place], [place] 0466709-18-2024 00:00-0400Body bnzctgsmmku43.52 [degF]Mike Halean [address] [place], [place] 0466709-18-2024 00:00-0400Mean blood zbiutjsr99 mm[Hg]Mike Halean [address] [place], [place] 0466709-17-2024 21:16-0400Heart rate83 /minMohamed Simon [address] [place], [place] 0466709-17-2024 19:29-0400Mean blood mm[Hg]Merlynnegro Simon [address] [place], [place] 0466709-17-2024 19:29-0400Body tpchflmrbtu18.06 [degF]Merlynnegro Simon [address] [place], [place] 0466709-17-2024 15:37-0400gluc 104 mg/dLMokaren Montes [address] [place], [place] 0466709-17-2024 11:00-0400Body ftbrsxbekoz47.42 [degF]Mike Montes [address] [place], [place] 0466709-17-2024 11:00-0400gluc 165 mg/dLMohamed Simon [address] [place], [place] 0466709-17-2024 11:00-0400Mean blood ofwekxyf72 mm[Hg]Mohamed Simon [address] [place], [place] 0466709-17-2024 09:36-0400Heart rate96 /minMohamed Simon [address] [place], [place] 0466709-17-2024 09:00-0400gluc 250 mg/dLMohamed Simon [address] [place], [place] 0466709-17-2024 09:00-0400 Respiratory rate16 /minMohamed Simon [address] [place], [place] 0466709-17-2024 05:00-0400 Respiratory rate18 /minMohamed Simon [address] [place], [place] 0466709-16-2024 23:00-0400 Respiratory rate18 /minMohamed Simon [address] [place], [place] 0466709-12-2024 05:17-0400Heart rate83 /minMohamed Simon [address] [place], [place] 0466709-12-2024 00:28-0400Heart rate83 /minMohamed Simon [address] [place], [place] 0466709-11-2024 06:15-0400Heart rate89 /minMohamed Simon [address] [place], [place] 0466709-09-2024 16:40-0400 Respiratory rate17 /minMohamed Simon [address] [place], [place] 0466709-09-2024 16:15-0400Body nlqonlwemnb79.7 [degF]Mohamed Simon [address] [place], [place] 0466709-09-2024 16:15-0400 Respiratory rate19 /minMohamed Simon [facility]09-09-2024 16:00-0400 Respiratory rate18 /minMike Montes [facility]09-09-2024 14:46-0400Body pjceshcqyys12.06 [degF]Mike Montes [facility]08-15-2024 08:56-0400Body zaysyv263.9 cmMike Montes MD Work Phone: 1(221)[facility]08-15-2024 08:56-0400Body mass index (BMI) [Ratio]27.8 kg/h1NsqpgnlMike Montes MD Work Phone: 1(831)[facility]08-15-2024 08:56-0400Body wfvwra68.99 kgMokaren Montes MD Work Phone: 1(271)[facility]08-15-2024 08:56-0400Diastolic blood harllynz03 mm[Hg]Mike Montes MD Work Phone: 1(783)[facility]08-15-2024 08:56-0400Heart rate 122 /minMike Montes MD Work Phone: 1(463)[facility]08-15-2024 08:56-4752QtI5% (BldA) [Mass fraction]100 %Mike Montes MD Work Phone: 1(433)[facility]08-15-2024 08:56-0400Systolic blood pqkyoyrt322 mm[Hg]Mike Montes MD Work Phone: 1(891)[facility]08-14-2024 12:34-0400Body zgqdxo309.[address] [place], [place] 0106208-14-2024 12:34-0400Body mass index (BMI) [Ratio]28.62 kg/m2Ely [address] [place] [address] 01-17-2024 12:34-0400Body whiolf18.[address] [place] [address] 01-17-2024 12:34-0400Diastolic blood gkfyttrz63 mm[Hg]Fabiana 2[facility]08-14-2024 12:34-0400Systolic blood cmlmxeik153 mm[Hg]Wittman 2 [facility]06-27-2024 23:10-0400Body mass index (BMI) [Ratio]27.86 kg/m9Nizrgt Furlong DO Work Phone: [facility] [employer] Mlttsv29-74-4529 23:10-0400Body flbymhnvbgp82.3 [degF]Guero Mclong DO Work Phone: [facility] [employer] Rezfat95-15-5063 23:10-0400Body .17 kgDenjunito Mclong DO Work Phone: [facility] [employer] Bcuabl28-76-2154 23:10-0400Diastolic blood mm[Hg]Guero Mclong DO Work Phone: [facility] [employer] Guustw22-70-3995 23:10-0400Heart rate 70 /Milena Mclong DO Work Phone: [facility] [employer] Mtdjlt51-88-5300 23:10-0400 Respiratory rate18 /minDadeolais Jesusitalong DO Work Phone: [facility] [employer] Jluiqa08-19-3505 23:10-2901KoK3% (BldA) [Mass fraction]98 %Guero Mclong DO Work Phone: [facility] [employer] Ionsxy01-61-9427 23:10-0400Systolic blood ohhlfhmn759 mm[Hg]Guero Mclong DO Work Phone: [facility] [employer] Movost98-78-6205 08:49-0400Body izhuca114.9 cmMike Montes MD Work Phone: 1(206)[facility] [employer] Nbmmgo35-94-1810 08:49-0400Body mass index (BMI) [Ratio]28.21 kg/y2YtojncbMike Montes MD Work Phone: 1(692)[facility] [employer] Fmuwtj97-19-3582 08:49-0400Body wbofeu48.35 kgMokaren Montes MD Work Phone: 1(718)[facility] [employer] Idsdhp09-53-3775 08:49-0400Diastolic blood qtdpcaoc63 mm[Hg]Mike Montes MD Work Phone: 1(569)[facility] [employer] Fiesjn06-40-9391 08:49-0400Heart rate 94 /minMike Montes MD Work Phone: 1(285)[facility] [employer] Odwptu51-24-4743 08:49-6233ZqY2% (BldA) [Mass fraction]99 %Mike Montes MD Work Phone: 1(403)[facility] [employer] Ogwdvs67-62-7040 08:49-0400Systolic blood mm[Hg]Mike Montes MD Work Phone: 1(721)[facility] [employer] Rocrvv64-56-6940 18:59-0400Body mass index (BMI) [Ratio]27.85 kg/c5Dfodnw Furlong DO Work Phone: [facility] [employer] Gddrow27-75-0227 18:59-0400Body ngbqaxrekuq12.4 [degF]Guero Mclong DO Work Phone: [facility] Minyei80-75-3247 18:59-0400Body zxwqbu02.17 kgDenjunito Mclong DO Work Phone: [facility] [employer] Byxzyc67-81-1520 18:59-0400Diastolic blood mydjutiz94 mm[Hg]Guero Furlong DO Work Phone: [facility] [employer] Jarxps30-97-3587 18:59-0400Heart rate 68 /minDennis Jesusitalong DO Work Phone: [facility] [employer] Hrxatq47-92-6036 18:59-0400Systolic blood giyksntx242 mm[Hg]Guero Jesusitalong DO Work Phone: [facility] [employer] Ioewag47-38-8758 15:50-0400Body lscrulibotz15.4 [degF]Guero Furlong DO Work Phone: [facility]vazhf96-60-3336 15:50-0400Diastolic blood fcegmxes86 mm[Hg]Guero Tam DO Work Phone: [facility] [employer] Zzvbja17-24-9037 15:50-0400Heart rate 77 /Milena Harrisng DO Work Phone: [facility]06-04-2024 15:50-0400Systolic blood xjebmpmh028 mm[Hg]Guero Harrisng DO Work Phone: [facility]05-31-2024 14:11-0400Body mass index (BMI) [Ratio]28.02 kg/k6AyvsftGuero Harrisng DO Work Phone: [facility]05-31-2024 14:11-0400Body qtannfylwps92.7 [degF]Guero Tam DO Work Phone: [facility]05-31-2024 14:11-0400Body qgmhah22.71 kgGuero Tam DO Work Phone: [facility] [employer] Gxydvt20-12-1874 14:11-0400Diastolic blood mm[Hg]Guero Tam DO Work Phone: [facility]05-31-2024 14:11-0400Heart rate 75 /Milena Harrisng DO Work Phone: [facility]05-31-2024 14:11-0400 Respiratory rate20 /Milena Harrisng DO Work Phone: [facility]05-31-2024 14:11-2529AtQ7% (BldA) [Mass fraction]97 %Guero Tam DO Work Phone: [facility]05-31-2024 14:11-0400Systolic blood cikiuyfh211 mm[Hg]Guero Tam DO Work Phone: [facility] [employer] Tuddux80-08-3792 22:00-0400Body mass index (BMI) [Ratio]29.7 kg/n8Iytresjunito Harrisng DO Work Phone: [facility]05-22-2024 22:00-0400Body yfugrwlfypw59.59 [degF]Guero Harrisng DO Work Phone: [facility]-22-2024 22:00-0400Body akhljx95.34 kgDenjunito Harrisng DO Work Phone: [facility]05-22-2024 22:00-0400Diastolic blood kreqnsip76 mm[Hg]Guero Harrisng DO Work Phone: [facility] Eadvgb76-84-4406 22:00-0400Heart rate 70 /Milena Harrisng DO Work Phone: [facility] Qalqfl35-08-1998 22:00-0400 Respiratory rate20 /Milena Harrisng DO Work Phone: [facility] [employer] Uwoumd36-22-5516 22:00-1927JbA0% (BldA) [Mass fraction]97 %Guero Harrisng DO Work Phone: [facility] [employer] Hamvjc82-06-3478 22:00-0400Systolic blood jrihlqdt292 mm[Hg]Guero Tam DO Work Phone: [facility] [employer] Mwcpos80-91-5897 10:56-0400Body pcafpq817.9 cmRaulito Inman MD Work Phone: [facility]05-21-2024 10:56-0400 Diastolic blood uitcvocz79 mm[Hg]Raulito Inman MD Work Phone: [facility]05-21-2024 10:56-0400 Heart mzln383 /minRaulito Inman MD Work Phone: [facility]05-21-2024 10:56-0400 Systolic blood xbtlumsh534 mm[Hg]Raulito Inman MD Work Phone: [facility]05-20-2024 09:37-0400 Blood Pressure LocationMokaren Montes [facility]05-20-2024 09:37-0400 Diastolic blood yqceubdr79 mm[Hg]Mike Montes [facility]05-20-2024 09:37-0400Heart keur754 /minMokaren Montes [facility]05-20-2024 09:37-1654LjN8% (BldA) [Mass fraction]98 %Mike Montes [facility]05-20-2024 09:37-0400 Systolic blood cegqvtno058 mm[Hg]Mike Montes [facility]05-15-2024 08:26-0400 Diastolic blood wpxksepm81 mm[Hg]Mike Montes MD Work Phone: 1(045)[facility]05-15-2024 08:26-0400Systolic blood nfojgnzf314 mm[Hg]Mike Montes MD Work Phone: 1(333)[facility]05-15-2024 08:25-0400Body qvupvg979.9 cmMike Montes MD Work Phone: 1(931)[facility]05-15-2024 08:25-0400Body mass index (BMI) [Ratio]28.07 kg/k6AmdteqsMike Montes MD Work Phone: 1(650)[facility]05-15-2024 08:25-0400Body .89 kgMike Montes MD Work Phone: 1(080)[facility]05-14-2024 13:51-0400Body yrtardyaklh71.4 [degF]Guero Furlong DO Work Phone: [facility]05-14-2024 13:51-0400Body ozwtis96.89 kgDennis Furlong DO Work Phone: [facility]05-14-2024 13:51-0400Diastolic blood yxgdzwsf13 mm[Hg]Guero Furlong DO Work Phone: [facility]05-14-2024 13:51-0400Heart rate 94 /minDennis Furlong DO Work Phone: [facility]05-14-2024 13:51-0400 Respiratory rate18 /minDennis Furlong DO Work Phone: [facility]05-14-2024 13:51-2261XuU2% (BldA) [Mass fraction]97 %Guero Furlong DO Work Phone: [facility]05-14-2024 13:51-0400Systolic blood mwtutyla409 mm[Hg]Guero Furlong DO Work Phone: [facility]05-07-2024 23:33-0400Body bphjncthbpo03.1 [degF]Guero Mclong DO Work Phone: [facility] [employer] Ftpfaz81-60-5636 23:33-0400Diastolic blood ziiaurqe60 mm[Hg]Guero Furlong DO Work Phone: [facility]05-07-2024 23:33-0400Heart rate 102 /Saúlis Furlong DO Work Phone: [facility]05-07-2024 23:33-0400 Respiratory rate18 /Saúlis Furlong DO Work Phone: [facility]05-07-2024 23:33-0132QhR9% (BldA) [Mass fraction]98 %Guero Furlong DO Work Phone: [facility]05-07-2024 23:33-0400Systolic blood ymvrxkuo328 mm[Hg]Guero Furlong DO Work Phone: [facility]05-03-2024 16:50-0400Body cfgmhvlyyfh29.4 [degF]Guero Mclong DO Work Phone: [facility]05-03-2024 16:50-0400Body elabll59.89 kgDenjuniot Mclong DO Work Phone: [facility]05-03-2024 16:50-0400Diastolic blood mm[Hg]Guero Mclong DO Work Phone: [facility]05-03-2024 16:50-0400Heart rate 98 /Milena Mclong DO Work Phone: [facility]05-03-2024 16:50-0400 Respiratory rate18 /minDadeolais Jesusitalong DO Work Phone: [facility]05-03-2024 16:50-5820KaB3% (BldA) [Mass fraction]96 %Guero Mclong DO Work Phone: [facility]05-03-2024 16:50-0400Systolic blood aqofweaf098 mm[Hg]Guero Mclong DO Work Phone: [facility]02-26-2024 12:00-0500Diastolic blood vysqrone14 mm[Hg]DO Teresa Lynch Work Phone: [facility]02-26-2024 12:00-0500 Heart rate75 /Kade Lynch Work Phone: [facility]02-26-2024 12:00-0500 Systolic blood dwmzzyuu231 mm[Hg]DO Teresa Fraustos Work Phone: [facility]02-26-2024 08:33-0500 Respiratory rate18 /Kade Fisheran Jetts Work Phone: [facility]02-07-2024 18:03-0500 Diastolic blood wejtvxch91 mm[Hg]DO Teresa Fraustos Work Phone: [facility]02-07-2024 18:03-0500 Heart rate76 /minDO Teresa Lynch Work Phone: [facility]02-07-2024 18:03-0500 Respiratory rate20 /minDO Teresa Lynch Work Phone: [facility]02-07-2024 18:03-0500 SaO2% (BldA) [Mass fraction]98 %DO Teresa Lynch Work Phone: [facility]02-07-2024 18:03-0500 Systolic blood dagcyhst666 mm[Hg]DO Teresa Lynch Work Phone: [facility]02-07-2024 16:15-0500 Body elwffb978.88 cmDO Teresa Lynch Work Phone: [facility]02-07-2024 16:15-0500 Body qktgymceuxf03.9 [degF]DO Teresa Lynch Work Phone: [facility]02-07-2024 16:15-0500 Body qunqit41.25 kgDO Teresa Lynch Work Phone: [facility]12-29-2023 10:56-0500 Blood Pressure LocationPabrenda ROWE [facility]12-29-2023 10:56-0500Body hplynakbzbr12.98 [degF]Yeyoneel ROWE [facility]12-29-2023 10:56-0500Diastolic blood ahmmjeuq73 mm[Hg]Yeyo ROWE [facility]12-29-2023 10:56-0500Heart rate68 /minYeyo ROWE [facility]12-29-2023 10:56-0500Systolic blood lfzipxal759 mm[Hg]Yeyo ROWE [facility]11-02-2023 13:15-0400Body enlfgg800.34 cmTeresa Lynch Other [employer] Other 11-02-2023 13:15-0400Body mass index (BMI) [Ratio] 29.43 kg/o4WrfujTeresa Lynch Other [employer] Other 11-02-2023 13:15-0400Body irgcqf06.71 kgTeresa Lynch Other [employer] Other 11-02-2023 13:15-0400Diastolic blood htldcihq85 mm[Hg] Teresa Lynch Other [employer] Other 11-02-2023 13:15-0400Respiratory rate18 /minTeresa Lynch Other [employer] Other 11-02-2023 13:15-0121CjN0% (BldA) [Mass fraction]97 % Teresa Lynch Other [employer] Other 11-02-2023 13:15-0400Systolic blood sghogryv542 mm[Hg] Teresa Lynch Other [employer] Other 10-11-2023 08:30-0400Body eymspt339.34 cmTeresa Lynch Other [employer] Other 10-11-2023 08:30-0400Body mass index (BMI) [Ratio] 29.01 kg/j9LllktTeresa Lynch Other [employer] Other 10-11-2023 08:30-0400Body .35 kgTeresa Lynch Other [facility] [employer] Other 10-11-2023 08:30-0400Diastolic blood zunqjvuc84 mm[Hg] Teresagorge Fraustojoe Other [facility] [employer] Other 10-11-2023 08:30-0400Respiratory rate16 /minTeresa Lynch Other [place] [employer] Other 10-11-2023 08:30-1715ZrW7% (BldA) [Mass fraction]97 % Teresa Fraustojoe Other [place] [employer] Other 10-11-2023 08:30-0400Systolic blood lhzylays47 mm[Hg] Teresa Fraustojoe Other [facility] [employer] Other 09-13-2023 10:04-0400Body qtiipo803.88 cmTeresa Lynch Work Phone: [id number]-Trvzj [employer] 250 DO Work Phone: 1(706) 455-961609-13-2023 10:04-0400Body mass index (BMI) [Ratio] 28.62 kg/f1IxizaTeresa Lynch Work Phone: mp527-9848MB-Sshps [place] [employer] 250 DO Work Phone: 1(760) 603-507509-13-2023 10:04-0400Body surface area Derived from formula2.18 a7Evpte Mari Lynch Work Phone: mp312-2130RN-Ijiyc [employer] 250 DO Work Phone: 1(373) 278-661209-13-2023 10:04-0400Body wbkuie10.71 kgPhillipgorge Mari Lynch Work Phone: mp113-1464OZ-Pobfz [facility] 250 DO Work Phone: 1(720) 931-152709-13-2023 10:04-0400Diastolic blood svfguxzd38 mm[Hg] Teresa Lynch Work Phone: mp246-9821DL-Fgcvu [facility] 250 DO Work Phone: 1(877) 550-155909-13-2023 10:04-0400Heart rate76 /minTeresa Lynch Work Phone: mp435-9965JT-Kjiyu [facility] 250 DO Work Phone: 1(292) 670-522109-13-2023 10:04-0400Systolic blood mdcbyzqa645 mm[Hg] Teresa Lynch Work Phone: mp291-7284GI-Ehpqt [facility] 250 DO Work Phone: 1(892) 470-321008-28-2023 10:23-0400Blood Pressure LocationPatrick ROWE [facility]08-28-2023 10:23-0400Diastolic blood mm[Hg]Yeyo ROWE [facility]08-28-2023 10:23-0400Heart rate68 /minPatrick ROWE [facility]08-28-2023 10:23-0400Respiratory rate16 /minPatrick ROWE [facility]08-28-2023 10:23-0400Systolic blood imawushu227 mm[Hg]Yeyo ROWE [facility]08-09-2023 15:08-0400Body ffimsl248.34 cmTeresa Lynch Work Phone: [id number]-Nyfdu [facility] 600 DO Work Phone: 1(977) 633-195508-09-2023 15:08-0400Body mass index (BMI) [Ratio] 30.13 kg/j7Rmbxq Mari Lynch Work Phone: mp627-0966BG[facility]vzkwWelia [facility] 600 DO Work Phone: 1(627)811-60621-115113-61283943-21-3668 15:08-0400Body surface area Derived from formula2.18 l9Yllrg Mari Lynch Work Phone: 1(110) [phone]-[facility]bloqSt. [facility] 600 DO Work Phone: 1(748) 810-635208-09-2023 15:08-0400Body hpznow33.98 kgTeresa Mari Lynch Work Phone: 1(464) 943-7118806-8190YF-XsjloSt. Mary's Hospital 600 DO Work Phone: 1(078)293-16362-398665-84415370-29-6310 15:08-0400Diastolic blood phgifjdt06 mm[Hg] Teresa Mari Lynch Work Phone: 1(971) [phone]-HnmskSt. Mary's Hospital 600 DO Work Phone: 1(584)[phone] 15:08-0400Heart rate74 /minTeresa Mari Lynch Work Phone: 1(348) [phone]-KfbfgSt. Mary's Hospital 600 DO Work Phone: 1(883) 603-515608-09-2023 15:08-0400Systolic blood mm[Hg] Etresagorge Lynch Work Phone: 1(542) 283-2993794-6106UU-CenauSt. Mary's Hospital 600 DO Work Phone: 1(829) 867-301806-29-2023 12:45-0400Body klsgyn468.34 cmTeresa Lynch Other [employer] Other 06-29-2023 12:45-0400Body mass index (BMI) [Ratio] 29.73 kg/r3ZryngTeresa Lynch Other [employer] Other 06-29-2023 12:45-0400Body .71 kgTeresa Lynch Other [employer] Other 06-29-2023 12:45-0400Diastolic blood ycbxhguq34 mm[Hg] Teresa Rory Other [employer] Other 06-29-2023 12:45-0400Respiratory rate18 /minTeresa Lynch Other [employer] Other 06-29-2023 12:45-1592LaT6% (BldA) [Mass fraction]94 % Teresa Lynch Other [employer] Other 06-29-2023 12:45-0400Systolic blood [id number] mm[Hg] Teresa Lynch Other [facility] Other 06-21-2023 11:38-0400Blood Pressure [facility] [employer] [facility]06-21-2023 11:38-0400Diastolic blood mm[Hg]Yeyo [employer] [facility]06-21-2023 11:38-0400Heart rate76 /minPatrick ROWE [facility]06-21-2023 11:38-0400Systolic blood mm[Hg]Yeyo [employer] [facility]01-30-2023 10:30-0500Body efrtoq731.34 cmTeresa Lynch Other [facility] Other 01-30-2023 10:30-0500Body mass index (BMI) [Ratio] 29.43 kg/w6EkjdfTeresa Lynch Other [facility] Other 01-30-2023 10:30-0500Body ezxxca07.71 kgTeresa Lynch Other [facility] Other 01-30-2023 10:30-0500Diastolic blood tvarqxpg32 mm[Hg] Teresa Fraustos Other [employer] Other 01-30-2023 10:30-0500Respiratory rate16 /minTeresa Fraustos Other [employer] Other 01-30-2023 10:30-0500Systolic blood otomgbky505 mm[Hg] Teresagorge Fraustos Other [employer] Other 09-13-2022 13:45-0400Body .34 cmTeresa Lynch Other [employer] Other 09-13-2022 13:45-0400Body mass index (BMI) [Ratio] 30.12 kg/b0IzbqvTeresa Lynch Other [employer] Other 09-13-2022 13:45-0400Body wkxrwu02.98 kgTeresa Lynch Other [employer] Other 09-13-2022 13:45-0400Diastolic blood ibdlgndv84 mm[Hg] Teresa Fraustos Other [employer] Other 09-13-2022 13:45-0400Respiratory rate16 /minTeresa Fraustos Other [employer] Other 09-13-2022 13:45-8443NlZ0% (BldA) [Mass fraction]96 % Teresa Jettjoe Other [place] [employer] Other 09-13-2022 13:45-0400Systolic blood hvdfjyut079 mm[Hg] Teresa Lynch Other [place] [employer] Other 05-24-2022 10:01-0400Body yykpgb316.34 cmTeresa Guerra Rory Work Phone: [phone]-Ftnqt [facility] 250 DO Work Phone: [phone]) [phone] 10:01-0400Body mass index (BMI) [Ratio] 29.99 kg/l2SxjexTeresa Fraustojoe Work Phone: [phone]-Bvpzm [facility] 250 DO Work Phone: 1(128) 566-440205-24-2022 10:01-0400Body surface area Derived from formula2.17 n8Jglrg Mari Lynch Work Phone: [phone]-Tdrzf [facility] 250 DO Work Phone: 1(615) 418-304205-24-2022 10:01-0400Body .52 kgTeresa Mari Lynch Work Phone: [phone]-Vutxz [facility] 250 DO Work Phone: 1(334) 234-414205-24-2022 10:01-0400Diastolic blood debgregr89 mm[Hg] Teresa Lynch Work Phone: [phone]-Phfbr [facility] 250 DO Work Phone: 1(339) 414-116105-24-2022 10:01-0400Heart rate68 /minTeresa Fraustos Work Phone: [phone]-Citdp [facility] 250 DO Work Phone: 1(355) 594-732905-24-2022 10:01-0400Systolic blood mm[Hg] Teresa Lynch Work Phone: [phone]) [phone]-Zngrt [facility] 250 DO Work Phone: 1([phone]) 333-924905-17-2022 12:20-0400Body xvjmus066.34 cmAtorsten Tonydariusjoe Other [employer] Other 05-17-2022 12:20-0400Body mass index (BMI) [Ratio] 30.65 kg/m2Amina Ameliejoe Other [employer] Other 05-17-2022 12:20-0400Body adyjoxrqyuj31.8 [degF]Amina Fagan Other [employer] Other 05-17-2022 12:20-0400Body pdfhri53.7 kgAmina Ameliejoe Other [employer] Other 05-17-2022 12:20-0400Diastolic blood vgtighdk60 mm[Hg] Amina Ameliejoe Other [employer] Other 05-17-2022 12:20-0400Respiratory rate18 /minAmina Ameliejoe Other [employer] Other 05-17-2022 12:20-0139EyD8% (BldA) [Mass fraction]98 % Norrisjuan Ameliejoe Other [employer] Other 05-17-2022 12:20-0400Systolic blood mm[Hg] Amian Amelies Other [employer] Other 02-22-2022 14:00-0500Body jrlrbi063.34 cmTeresa Lynch Other [employer] Other 02-22-2022 14:00-0500Body mass index (BMI) [Ratio]30.4 kg/d0OgvsaTeresa Lynch Other [employer] Other 02-22-2022 14:00-0500Body cqbmji57.88 kgTeresa Lynch Other [employer] Other 02-22-2022 14:00-0500Diastolic blood urlroyal21 mm[Hg] Teresa Fraustojoe Other [employer] Other 02-22-2022 14:00-0500Respiratory rate18 /minTeresa Lynch Other [employer] Other 02-22-2022 14:00-0844GjK1% (BldA) [Mass fraction]98 % Teresa Lynch Other [employer] Other 02-22-2022 14:00-0500Systolic blood htokusdg160 mm[Hg] Tersea Lynch Other [employer] Other Encounters Encounter DateEncounter TypeCare ProviderFacilityStart: 03-28-2025 End: 83-40-4423Jxfpqyrok encounterMohamed Jennifer Montes MD Work Phone: [phone] VascularStart: 03-27-2025 End: 75-84-0194Xqrlxiriv encounterMokaren Montes MD Work Phone: [facility] Job[facility] VascularStart: 03-13-2025 End: 22-14-2604Skddvbilc encounterTagilberto Aguilar CMAProMedica Jobst Vascular [place]remontStart: 02-27-2025 End: 78-86-2396Hicmrd outpatient new 45 minutesMokaren Montes MD Work Phone: [phone] Vascular FremontComment on above: 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) (Primary Dx); Hx of right BKA (CMS-HCC); Cigarette smokerStart: 02-27-2025 End: 05-98-9322wqmetleuvvXYBDVCV F OSMANPremier [facility] Ambulatory PPGStart: 02-05-2025 End: 77-97-3826imvqpnsewxRYGQHP [facility] Hospitaltart: 02-05-2025 End: 70-47-5567Ksjfprnzim hospital visit by Mike Brown Admin Room 1[facility] BirminghamComment on above:Chest pain, unspecified typeStart: 01-31-2025 End: 82-15-2661mjmtkovszuJljsqma R WATERSFacility:EU BellevueStart: 01-31-2025 End: 76-79-4542Dnqrczp encounter procedureYeyo ROWE [facility] start: 01-02-2025 End: 24-29-2521Ffdokluqa encounterAngie Urban CMAProMedica Jobst Vascular [place]remontStart: 11-05-2024 End: 23-77-5367qqrfphrsluJjfvf Kuns DO Work Phone: [facility] Work Phone: Start: 11-05-2024 End: 02-46-5043Tqngb Kuns DO Work Phone: [facility] Work Phone: Start: 11-05-2024 End: 08-69-1949fainjzfscvFgkjk Kuns DO Work Phone: [facility] Work Phone: Start: 11-05-2024 End: 36-78-4792Kdiuv Kuns DO Work Phone: [facility] Family Medicine [place] Work Phone: Start: 10-26-2024 End: 65-44-0658Udedmit encounter procedureBrygorge Fraustos DO Work Phone: [facility] [place] Work Phone: Start: 10-26-2024 End: 05-76-3983Mivse Kuns DO Work Phone: [facility] [place] Work Phone: Start: 10-26-2024 End: 26-96-6397igdvjftsjhVicot Kuns DO Work Phone: [facility] Work Phone: Start: 10-10-2024 End: 27-63-4424nnwlviqejmXkqnj JettjoeFacility:[facility] Start: 10-10-2024 End: 22-60-0730Usqqagjibs and management of inpatientBrygorge Lynch DO Work Phone: [facility]-[address] [place] [facility] Work Phone: Start: 94-99-7638tcasxcxozof encounterBrygorge Lynch DO Work Phone: [facility] Work Phone: Start: 10-10-2024 End: 81-39-1970Poldc Kuns DO Work Phone: [facility]-[address] [place] [facility] Work Phone: Start: 68-25-0760awbyptqvewHFEQHMJX E PERRYFacility:EU BellevueStart: 09-27-2024 End: 73-38-2528llkgogqrgkKhtmojq R WATERSFacility:EU BellevueStart: 08-30-2024 End: 32-67-8841siqetarhvnXxqnb Kuns DO Work Phone: [facility] Work Phone: Start: 08-30-2024 End: 80-35-7122Vmkoldn encounter procedureTeresa Lynch DO Work Phone: [facility] Family [facility] [place] Work Phone: Start: 08-30-2024 End: 66-80-4356Tnwja Kuns DO Work Phone: [facility] GroupM[facility] Work Phone: Start: 90-25-9949Cxu-patient / Non-visitBrygorge Fraustos DO Work Phone: [facility]ician [facility] Work Phone: Start: 35-71-8436Viaoe Kuns DO Work Phone: [facility] Work Phone: Start: 08-11-2024 End: 43-96-5491Euqburgqvd and management of inpatientBrygorge Lynch DO Work Phone: [facility]-[address] [place] Med Surg Work Phone: Start: 08-11-2024 End: 87-58-5837Idyqh Kuns DO Work Phone: [facility] [place] [facility] Work Phone: Start: 08-02-2024 End: 63-51-7343hdusyybcikOIZCOMNP E PERRYFacility:EU [place]vueStart: 08-02-2024 End: 76-08-2869Gjfdxof encounter procedureJENNIFER E RASHI [facility] [place] start: 05-95-6236Eyd-patient / Non-visitBryan Jetts DO Work Phone: [facility] Work Phone: Start: 07-23-2024 End: 34-99-8153Ybfcahvxee RecurringBrygorge Fraustos DO Work Phone: [facility]-Physical Therapy [place] CreekStart: 17-35-7325Jqoweldocb RecurringBryan Jetts DO Work Phone: [facility]-Physical Therapy [place] CreekStart: 07-23-2024 End: 46-89-3573qnsnonmtcpConqa Kuns DO Work Phone: [facility] Work Phone: Start: 05-27-2024 End: 13-05-4227mxhgepkoojOoxmccx R WATERSFacility:FTMCStart: 05-27-2024 End: 18-27-5545Dxc Drop offYeyo ROWE [facility] Start: 05-27-2024 End: 63-83-9303gwoxssmqqgLkiwrmz R WATERSFacility:EU [place]vueStart: 05-27-2024 End: 55-08-3306Qxsxxcu encounter Riya ROWE [facility] [place] start: 05-07-2024 End: 96-89-6244Tpdxthg encounter procedureTeresa Lynch DO Work Phone: [facility] Work Phone: Start: 04-24-2024 End: 41-18-8536xuzktsdklpQczkdqYessica Dan MD Work Phone: [facility] Work Phone: start: 04-24-2024 End: 12-42-2992Vtahypk encounter Judith Dan MD Work Phone: [facility] Work Phone: Start: 32-42-3087Hye-patient / Non-visitKait Dan MD Work Phone: [facility] Work Phone: Start: 04-23-2024 End: 43-77-6615Rnxptafes to same day surgery centerKait Dan MD Work Phone: [facility]-Digestive Health Work Phone: Start: 04-23-2024 End: 35-22-5295eiywcukozaKpnrfh R Russell MD Work Phone: [facility] Work Phone: Start: 40-73-8426Kwo-patient / Non-visitKait Dan MD Work Phone: [facility] [place] Work Phone: Start: 04-04-2024 End: 36-32-2097sszlcgvsmdDP Ashley R Russell Work Phone: [facility] Work Phone: Start: 04-04-2024 End: 42-33-1740Wbxkiwn encounter procedureMD Kait Dan Work Phone: [facility] [place] Work Phone: Start: 21-53-7361Tzq-patient / Non-visitMD Kait Dan Work Phone: [facility] [place] Work Phone: Start: 03-22-2024 End: 66-39-3898Dhjpsmjls encounterKelly [facility]'s [facility] Call CenterComment on above:Blood Sugar Problem (High blood sugars)Start: 03-21-2024 End: 50-13-6109jpbjieezajDH Ashley R Russell Work Phone: [facility] Work Phone: Comment on above:History of right below knee amputation (CMS-HCC) (Primary Dx)Start: 03-21-2024 End: 32-34-9125Tilacdo encounter procedure Kait Dan Work Phone: [facility] Work Phone: Start: 03-21-2024 End: 28-01-2887II Kait Dan Work Phone: [facility] Work Phone: Start: 03-19-2024 End: 29-62-6219hzcknscvylBqsrbf Ines Furlong DO Work Phone: [facility] Internal Medicine - Family MedicineComment on above:Diabetic polyneuropathy associated with type 2 diabetes mellitus ([facility]-HCC) (Primary Dx); Encounter for orthopedic aftercare following surgical amputation; Other abnormalities of gait and mobility; Restless leg syndromeStart: 03-15-2024 End: 89-06-7245mkhxyycftqQvgame G Furlong DO Work Phone: [facility] Internal Medicine - Family MedicineComment on above:Diabetic polyneuropathy associated with type 2 diabetes mellitus (CMS-HCC) (Primary Dx); Disorientation; Other abnormalities of gait and mobility; Status post partial amputation of right foot ([facility]-HCC); Atherosclerosis of [place] coronary artery of [place] heart without angina pectoris; Atrial fibrillation ([facility]-HCC); Primary hypertensionStart: 03-15-2024 End: 06-01-8692Amacfyrji encounterAllbertrand Kim [facility] Physicians Jobst VascularStart: 52-61-9968voyieuyrnvDDWBSLS [facility] Ambulatory PPGStart: 01-54-1355Waw-patient / Non-visitMD Kait Dan Work Phone: [facility] Work Phone: Start: 22-14-6491PK Kaitjana Dan Work Phone: [facility] Work Phone: Start: 38-61-1761Soi-patient / Non-visitMD Kait Dan Work Phone: [facility] GroupAk[facility] Work Phone: Start: 84-52-4817RO Kait Dan Work Phone: [facility] GroupAk[facility] Work Phone: Start: 03-08-2024 End: 05-38-5209Hanunnlgel and management of inpatientMD Kait Dan Work Phone: [facility] Work Phone: Start: 03-08-2024 End: 29-66-9493YE Kait Dan Work Phone: [facility]-[place] [facility] Surg Work Phone: Start: 03-08-2024 End: 09-06-0199Uurbvzeou department patient visitMOWadley Regional Medical Center Ambulatory PPGStart: 87-88-7083Zif-patient / Non-visitMD Kait Dan Work Phone: [facility] Work Phone: Start: 65-14-6545RD Kait Dan Work Phone: [facility] Work Phone: Start: 03-04-2024 End: 59-36-1117Jnanzdicse and management of inpatientMD Kait Dan Work Phone: [facility] [place] [facility] Work Phone: Start: 03-04-2024 End: 62-95-7790JP Kait Dan Work Phone: [facility] [place] [facility] Work Phone: Start: 21-61-9583Ntwsmzqnqe and management of inpatientMD Kait Dan Work Phone: [facility] [place] [facility] Work Phone: Start: 84-59-1578vltyzjxjdyf encounterMD Kait Dan Work Phone: [facility] Work Phone: Start: 02-29-2024 End: 24-26-8094Lovkfe follow up visit related to original Radha Montes MD Work Phone: [facility] Vascular SurgeryComment on above:PAD (peripheral artery disease) ([facility]-HCC) (Primary Dx)Start: 02-28-2024 End: 79-81-3700lxmzroalbaHwccud G Furlong DO Work Phone: [facility] Internal Medicine - Family MedicineComment on above:Encounter for orthopedic aftercare following surgical amputation (Primary Dx); Cigarette smoker; Diabetic polyneuropathy associated with type 2 diabetes mellitus ([facility]); Other abnormalities of gait and mobility; Muscle spasmStart: 02-23-2024 End: 82-14-2631hdxhqxewbjCnubjj G Furlong DO Work Phone: [facility] Internal Medicine - Family MedicineComment on above:Encounter for orthopedic aftercare following surgical amputation (Primary Dx); Other abnormalities of gait and mobility; BPH with obstruction/lower urinary tract symptoms; Diabetic polyneuropathy associated with type 2 diabetes mellitus ([facility]); Atherosclerosis of [place] coronary artery of [place] heart without angina pectoris; Heart failure, unspecified HF chronicity, unspecified heart failure type ([facility]); Primary hypertension; Peripheral arterial disease ([facility]); Chronic obstructive pulmonary disease, unspecified COPD type [place] Gastroesophageal reflux disease, unspecified whether esophagitis present; Muscle weakness (generalized)Start: 02-12-2024 End: 12-37-8192Zmxobifcjs and management of inpatientMD Mike Montes Facility:FTMCStart: 31-99-1726oxiwahnicjEwnnlge R WATERSFacility: [facility] Start: 16-92-7895xlrdzyjntsFoamxbg F. OsmanFacility:FTMCStart: 02-12-2024 End: 77-70-4268Cqnekmyvhp and management of inpatientMohamed Jasiel Simon [facility] Start: 64-74-8035Upt-patient / Non-visitMD Kait Dan Work Phone: [facility] GroupW[facility] Work Phone: Start: 42-99-2810KR Kait Dan Work Phone: [facility] GroupW[facility]atche[facility] Work Phone: Start: 02-01-2024 End: 18-01-5357Bkwbrwlkm Result EncounterMohamed Myriam Montes MD Work Phone: [facility] External Department UnsolicitedStart: 02-01-2024 End: 23-22-9068Gqjbjnzcv Result EncounterMohamed Myriam Montes MD Work Phone: [facility] External Department UnsolicitedStart: 02-01-2024 Non-patient / Non-visitMD Kait Dan Work Phone: firBright[employer]ist Mediax Physician GroupWenatche[facility] Work Phone: Start: 89-09-0891AC Kait Dan Work Phone: [facility] GroupW[facility] Work Phone: Start: 48-85-4944Ymg-patient / Non-visitMD Kait Dan Work Phone: [employer] Physician Group-[facility] Family Medicine [place] Work Phone: Start: 00-82-5673VV Kait Sy Work Phone: [facility] Family [facility] [place] Work Phone: Start: 01-18-2024 End: 12-29-4235Natakr outpatient visit 25 minutesMohamed Jennifer Montes MD Work Phone: [facility] Vascular SurgeryComment on above:Critical limb ischemia of right lower extremity with gangrene ([facility]-HCC) (Primary Dx); Cigarette smokerStart: 01-17-2024 End: 00-43-9895Ummvadtbya hospital visit by Mike Allred Cooter/Vasc Room 2[facility] BirminghamComment on above:Shortness of breathStart: 01-08-2024 End: 76-66-7380bhsobeobksST Mike RodriguezMary GeoffreygorgeFacility:FTMCStart: 44-23-9151Cyw- patient / Non-visitMD Kait Dan Work Phone: [employer] Physician Group-[facility] Work Phone: Start: 32-81-7349JK Kait Dan Work Phone: [facility] Mediaa [facility]ician [facility] Work Phone: Start: 01-01-2024 End: 66-44-4572aahcjavlkwQYXDVMJCity of Hope, [place] AmbulatoryStart: 01-01-2024 End: 02-49-2848Ckbdxaxvc for preprocedural cardiovascular examinationCity of Hope, [place] AmbulatoryStart: 03-04-5336Wof-patient / Non-visitMD Kaitjana Dan Work Phone: [employer] Physician [facility] Out[facility] Work Phone: Start: 15-28-7000CZ Kait Dan Work Phone: [facility] Phys[facility] Work Phone: Start: 90-03-4455Pya-patient / Non-visitMD Kait Dan Work Phone: [employer] Mediar Physician [facility] Professional [facility] Work Phone: Start: 82-31-0798HT Kait Dan Work Phone: [employer] Physician [facility] Work Phone: Start: 39-85-9530Noe-patient / Non-visitMD Kait Dan Work Phone: [facility]landy [facility]ician [facility] Family Medicine [place] Work Phone: Start: 68-57-1155CK Kait Dan Work Phone: [facility]landi [facility]ician [facility] Family Medicine [place] Work Phone: Start: 70-85-6164Ase-patient / Non-visitMD Kait Dan Work Phone: fircaneys Physician Group-[facility] Family Medicine [place] Work Phone: Start: 61-37-6418WY Kait Dan Work Phone: fircaney Physician Group-[facility] Family Medicine [place] Work Phone: Start: 94-59-0405Pwx-patient / Non-visitMD Kait Dan Work Phone: fircaneyr Physician Group-[facility] Work Phone: Start: 39-38-6400YH Kait Dan Work Phone: fircaneyl Physician Group-[facility] Work Phone: Start: 66-49-8107Bqr-patient / Non-visitMD Kait Dan Work Phone: [facility] Work Phone: Start: 38-21-6333JZ Kait Dan Work Phone: firelandn Physician Group-[facility] Work Phone: Start: 73-60-9413Uiu-patient / Non-visitMD Kait Dan Work Phone: fircaneya Physician Group-[facility] Work Phone: Start: 78-98-3925TE Kait Sy Work Phone: [facility] Work Phone: Start: 12-21-2023 End: 55-62-5646Kdkxng outpatient visit 25 minutesMike Montes MD Work Phone: [phone] Comment on above:Critical limb ischemia of right lower extremity with gangrene ([facility]-HCC) (Primary Dx)Start: 12-15-2023 End: 67-28-3504dfyzecddwxRQ Teresa Lynch Work Phone: [facility] Work Phone: Start: 12-15-2023 End: 90-14-7191Npayjkem ReferredDO Teresa Lynch Work Phone: [facility]-LAB Path Spec [place] HospStart: 12-15-2023 End: 39-81-9587KP Kait Dan Work Phone: [facility]-LAB Path Spec [place] HospStart: 74-94-6023Cjl-patient / Non-visitMD Kait Dan Work Phone: [facility] Phys[facility] Work Phone: Start: 88-90-6260FN Kait Dan Work Phone: fircaneyx Physician [facility] Out[facility] Work Phone: Start: 85-21-5635Scf-patient / Non-visitDO Teresa Lynch Work Phone: [employer] [facility]ician Group-[facility] Work Phone: Start: 97-59-0111UB Kait Dan Work Phone: [employer] Physician Group-[facility] Work Phone: Start: 76-40-0520Hhc-patient / Non-visitDO Teresa Lynch Work Phone: [employer] Physician [facility] Work Phone: Start: 55-18-5914OZMD Kait Dan Work Phone: [facility] GroupW[facility]atche[facility] Work Phone: Start: 11-30-2023 End: 93-37-2420qpncgyimkzBhboci G Jesusitabiju DO Work Phone: [facility] Internal Medicine - Family MedicineComment on above: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) (Primary Dx); 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 (CMS-HCC); Delayed surgical wound healing of foot amputation stump (CMS-HCC); Other abnormalities of gait and mobilityStart: 11-30-2023 End: 30-89-1795Gimsmq follow up visit related to original Radha Monets MD Work Phone: [phone] V[facility] Surgery and Wound [facility] Comment on above: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) (Primary Dx); Cigarette smoker motivated to quitStart: 42-34-8956Jfc-patient / Non-visitDO Teresa Lynch Work Phone: [employer] Physician [facility] Professional [facility] Work Phone: Start: 11-24-2023 End: 02-94-8413pjyylmgewyOlzcvc G Jesusitabiju DO Work Phone: [facility] Internal Medicine - Family MedicineComment on above:Status post partial amputation of right foot (CMS-HCC) (Primary Dx); Other abnormalities of gait and mobility; Leg edema; Primary hypertension; Hypotension due to drugs; 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); Diabetic polyneuropathy associated with type 2 diabetes mellitus (CMS-HCC)Start: 11-23-2023 End: 08-96-6930zrgspqdlerECPCOLR C DERISOProMedica New London HospitalStart: 11-15-2023 End: 50-01-7192lvweowffrgRXDC D [facility] Hospitalca [facility] HospitalStart: 06-46-9779Yba-patient / Non-visitDO Teresa Lynch Work Phone: [facility] GroupW[facility]atche[facility] Work Phone: Start: 11-14-2023 End: 02-38-7594Fnptnqbigw and management of inpatientMOHAMED PENN PRESBYTERIAN MEDICAL CENTERGORGELancaster Municipal Hospitalnoe [facility]field HospitalStart: 11-10-2023 End: 24-53-4737Ecidsdari Yuniel Yu MD Work Phone: [phone] Physicians Jobst VascularStart: 11-07-2023 End: 79-83-7309Zusbgjtuhz and management of inpatientARMELLE C DERISOProRiverview Health Institutenoe Brookfield HospitalStart: 11-07-2023 End: 29-23-0156wttvoodjrkIdpsud G Furlong DO Work Phone: [facility] Physicians Internal Medicine - Family MedicineComment [...] current use of insulin (CMS-HCC)Start: 11-07-2023 End: 33-59-9695Izqtdlqgdw and management of inpatientMOHAMED F Rosas [facility] HospitalStart: [facility]2023 End: 17-71-3085gopclhgvxjAluzix G Furlong DO Work Phone: [facility] Internal Medicine - Family MedicineComment on above:Status post partial amputation of right foot (CMS-HCC) (Primary Dx); Pressure ulcer of right ankle, stage 3 (CMS-HCC); Other abnormalities of gait and mobility; Delayed surgical wound healing of foot amputation stump (CMS-HCC)Start: 10-25-2023 End: 93-21-7404wuubdfzxleOrtarr G Jesusitalong DO Work Phone: [facility] Internal Medicine - Family MedicineComment on above:Status post partial amputation of right foot (CMS-HCC) (Primary Dx); Osteomyelitis of right foot, unspecified type (CMS-HCC); Muscle weakness (generalized); Other abnormalities of gait and mobility; Chronic obstructive pulmonary disease, unspecified COPD type (CMS-HCC); Peripheral arterial disease (CMS-HCC)Start: 55-81-8326Mocsvokqqaxd stateEly [address] [place], [place] [address]Start: 66-16-6103Apztjvplm for preprocedural cardiovascular examinationCity of Hope, [place] [facility] Start: 10-24-2023 End: 08-22-4619Gnkvvz outpatient visit 25 minutesRaulito Inman MD Work Phone: [facility]renew[facility] hospitalComment on above:History of PTCA; Hyperlipidemia, unspecified hyperlipidemia type; Encounter for pre-operative cardiovascular clearance; Former smokerStart: 10-24-2023 End: 56-53-6359Dngylrz encounter statusRaulito Inman MD Work Phone: [facility] Work Phone: Start: 10-23-2023 End: 50-48-1898tgroytcmqnBCNia MontesFacility:FTMCStart: 10-23-2023 End: 80-26-4790Uleyikn encounter procedureMokaren Montes [facility] Start: 10-19-2023 End: 55-94-7348lpzruoqkktFRDedra Camejocility:FTMCStart: 10-19-2023 End: 34-42-8702Nlexzlj encounter procedureMokaren Montes [facility] Start: 10-18-2023 End: 12-12-1423Fngvamxrq encounterAlexis Saurav [facility]as[facility] VascularStart: 10-18-2023 End: 02-24-8953Vxayrk outpatient new 45 minutesMike Montes MD Work Phone: [facility] Jobst VascularComment on above: Critical limb ischemia of right lower extremity with gangrene ([facility]-HCC) (Primary Dx); Poor circulation; Heavy tobacco smoker >10 cigarettes per dayStart: 10-18-2023 End: 03-80-0275yevsjchrlgLMBDZNENewark Hospitaltart: 10-17-2023 End: 60-85-7008cvtbytavfhHefnxt G Furlong DO Work Phone: [facility] Internal Medicine - Family MedicineComment on above:Status post partial amputation of right foot ([facility]-HCC) (Primary Dx); Critical limb ischemia of right lower extremity with gangrene ([facility]-HCC); Type 2 diabetes mellitus with stage 4 chronic kidney disease, without long-term current use of insulin ([facility]-HCC)Start: 10-10-2023 End: 12-75-6324zfvxcayfmsOikkdk G Furlong DO Work Phone: [facility] Internal Medicine - Family MedicineComment on above:Diarrhea, unspecified type (Primary Dx); Other acute osteomyelitis of right foot (CMS-HCC); Status post partial amputation of right foot ([facility]-HCC); Chronic obstructive pulmonary disease, unspecified COPD type ([facility]-HCC); Abscess of right foot; Type 2 diabetes mellitus with stage 4 chronic kidney disease, without long-term current use of insulin ([facility]-HCC)Start: 10-06-2023 End: 74-85-7824kvhvjtnkleGkiugq G Furlong DO Work Phone: [facility] Internal Medicine - Family MedicineComment on above:Abscess of right foot (Primary Dx); Status post partial amputation of right foot ([facility]-HCC); Type 2 diabetes mellitus with stage 4 chronic kidney disease, without long-term current use of insulin ([facility]-HCC); Atherosclerosis of [place] coronary artery of [place] heart without angina pectoris; Bacterial sepsis ([facility]-HCC); Other acute osteomyelitis of right foot ([facility]-HCC); Chronic obstructive pulmonary disease, unspecified COPD type ([facility]); Cigarette smoker; BPH with obstruction/lower urinary tract symptoms; Gastroesophageal reflux disease, unspecified whether esophagitis present; Restless leg syndrome; Hyperlipidemia, unspecified hyperlipidemia type; Carpal tunnel syndrome, unspecified laterality; Heart failure, unspecified HF chronicity, unspecified heart failure type ([facility])Start: 33-77-5057Dld-patient / Non-visitDO Teresa Lynch Work Phone: [facility] Work Phone: Start: 10-05-2023 End: 44-29-7280anyzziosdwQE Teresa Lynch Work Phone: [facility] Work Phone: Start: 10-05-2023 End: 04-71-8360Kjgnznsc ReferredDO Teresa Lynch Work Phone: [facility]-LAB Path Spec Aurelio HospStart: 92-80-8350Fxh-patient / Non-visitDO Teresa Lynch Work Phone: [facility] Work Phone: Start: 50-06-2971Kdu-patient / Non-visitDO Teresa Lynch Work Phone: [facility] Work Phone: Start: 68-59-6066Ezi-patient / Non-visitDO Teresa Lynch Work Phone: [facility] Work Phone: Start: 10-02-2023 End: 46-83-6279ukeuknaxogUN Teresa Lynch Work Phone: [facility] Work Phone: Start: 10-02-2023 End: 07-51-8695Kjxbqiss ReferredDO Tereas Lynch Work Phone: [facility]-LAB Path Spec [place] HospStart: 29-46-4187Rvu-patient / Non-visitDO Teresa Lynch Work Phone: [facility] Work Phone: Start: 24-30-0354Pui-patient / Non-visitDO Teresa Lynch Work Phone: [facility] Work Phone: Start: 36-65-8815Dli-patient / Non-visitDO Teresa Lynch Work Phone: [facility] Work Phone: Start: 91-10-7176Ztm-patient / Non-visitDO Teresa Lynch Work Phone: [facility] Work Phone: Start: 09-21-2023 End: 60-80-7310pybqexszkzIG Teresa Jettjoe Work Phone: [facility] Work Phone: Start: 09-21-2023 End: 60-83-4397Npycdwuy ReferredDO Teresa Jettjoe Work Phone: [facility]-LAB Path Spec [place] HospStart: 05-44-2771Fwo-patient / Non-visitDO Teresa Lynch Work Phone: [facility] Work Phone: Start: 73-97-3792Phw-patient / Non-visitDO Teresa Jettjoe Work Phone: [facility] Work Phone: Start: 09-08-2023 End: 79-98-3079bolfgkyyssUzxjttq R WATERSFacility:EU BellevueStart: 09-08-2023 End: 17-90-6157Kckjusn encounter procedurePatricgloria ROWE [facility] start: 91-67-9098Ihf-patient / Non-visitDO Teresa Lynch Work Phone: [facility] Work Phone: Start: 97-00-6132Eit-patient / Non-visitDO Teresa Lynch Work Phone: [facility] Work Phone: Start: 14-69-9643Ixn-patient / Non-visitDO Teresa Lynch Work Phone: [facility] Work Phone: Start: 98-17-9196Nol-patient / Non-visitDO Teresa Lynch Work Phone: [facility] Work Phone: Start: 57-27-1295Flt-patient / Non-visitDO Teresa Lynch Work Phone: [facility] Work Phone: Start: 14-15-6730Ctm-patient / Non-visitDO Teresa Lynch Work Phone: [facility] Work Phone: Start: 39-33-6798Lps-patient / Non-visitDO Teresa Lynch Work Phone: [facility]ician [facility] Work Phone: Start: 78-16-3195Rbqwepstpe RecurringDO Teresa Lynch Work Phone: [facility]-Infusion Therapy - O/P Work Phone: Start: 20-64-1260Uwy-patient / Non-visitDO Teresa Lynch Work Phone: [facility] [facility] Work Phone: Start: 07-12-2023 End: 77-91-5626Aqdqpwnhe department patient visitDO Teresa Lynch Work Phone: [facility]-Emergency Room Work Phone: Start: 07-07-2023 End: 61-95-8863ritfrzgxzsKpyls Kuns Other [employer] Other Start: 77-95-1416Ogqdwczwt encounterBrygorge Tenorio [facility] [place]Start: 07-03-2023 End: 05-79-4601ajlxzrhdojQuumgyr Viktoria ROWEFacility:EU [place]vueStart: 06-26-2023 End: 30-45-6479jtogmqfvqsMqukm Kuns Other [facility] [employer] Other Start: 33-39-0594Nfaxygqdq encounterBrygorge Jona Family [facility] [place]Start: 06-02-2023 End: 78-74-5338cljsldlheuZgscmmr R WATERSFacility:EU [place]vueStart: 06-02-2023 End: 66-14-2606Sogoqio encounter procedurePatrick Viktoria ROWE [facility] start: 05-16-2023 End: 09-17-2575bnhqykubihImjrk Kuns Other [facility] [employer] Other Start: 38-68-8818Csiaxbugi encounterBrygorge Jona [facility] [place]Start: 05-03-2023 End: 26-70-5532rgbqyxvojeLsltcbs R WATERSFacility:EU [place]kyStart: 05-03-2023 End: 76-91-7502Mdqrhov encounter procedurePatrick R ROWE [facility] Start: 04-28-2023 End: 27-47-7048drhkhsydikVagwo Kuns Other [employer] Other Start: 86-73-3785Qpmbtsrlo encounterBrygorge Tenorio Family [facility] [place]Start: 04-18-2023 End: 82-05-8107xesiuunosvCapcbui R WATERSFacility:EU [place]kyStart: 04-18-2023 End: 71-63-7036Lrvrsbs encounter procedureYeyo ROWE [facility] Start: 66-32-5814tqozgenyqdAenzont R WATERSFacility:EU [place]vueStart: 04-13-2023 End: 66-71-6056ayvawaafoaZednfnk R WATERSFacility::[id number]: 04-11-2023 End: 79-22-4634upfhenhpwsIdzsy Kuns Other [employer] Other Start: 78-93-7232Zcsanfbbc encounterBrygorge LynchG Family Medicine [place]Start: 04-06-2023 End: 81-63-9058wmguqgliteOjkwx Kuns Other [employer] Other Start: 18-15-8119Jeainbgai for other preprocedural examinationTeresa FraustosInes Family Medicine [place]aliaStart: 89-75-2951Ubomnk outpatient visit 25 minutesTeresa LynchG Family Medicine [place]Start: 03-28-2023 End: 18-01-0220xyyvcqfiybRaiuw Kuns Other [employer] Other Start: 37-44-1731Xoilefcvi encounterBrygorge RoryG Family Medicine [place]Start: 93-91-7530dswakekpgwEvbxilm R WATERSFacility:EU [place]vueStart: 03-15-2023 End: 11-62-3903qpsmphuoqrGetztur R [employer] Other Start: 94-07-5844Rujykm outpatient visit 25 minutes Teresa Tenorio [facility] [place]Start: 03-10-2023 End: 20-21-7510ijyrtiwvbgGumcx Kuns Other [facility] [employer] Other Start: 44-83-5939Ptmedttiy encounterTeresa FraustoPortia Family Medicine [place]aliaStart: 32-63-3914Uouzce outpatient visit 15 minutesBrygorge Fraustojoe Work Phone: [phone]-[facility]itfjMonticello [facility] 250 DO Work Phone: Start: 86-61-5220vfisbiizekJbntr SmithFacility: Start: 02-14-2023 End: 22-87-3142Jvrrhrq encounter procedureYeyo Blum ROWE [facility] Start: 02-08-2023 End: 09-56-8613Kvdmojc encounter procedurePabrenda Blum ROWE [facility] Start: 01-30-2023 End: 02-85-2525Jmdqhpc encounter procedureYeyo Blum ROWE [facility] start: 33-51-4107bqfwojonfvKv. Bryan Patrick Kuns Facility:[id number]: 01-17-2023 End: 41-15-0533pdevjcddqiQlkfs Kuns Other [facility] [employer] Other Start: 17-05-7998Koqlorpqj encounterTeresa Jona Family Medicine [place]Start: 76-64-9036Wvlwca outpatient visit 25 minutesTeresa Lynch Work Phone: [phone]-Vixqj [facility] 600 DO Work Phone: Start: 09-77-3534ikvaeojeebQrqdr SmithFacility: Start: 12-28-2022 End: 13-80-8477Axbyhgs encounter procedurePabrenda Viktoria ROWE [facility] Start: 12-01-2022 End: 66-88-0205zxjkewlthtEhdwo Kuns Other [employer] Other Start: 64-93-0506Ubjbxw outpatient visit 25 minutes Teresa Tenorio [facility] [place]Start: 11-23-2022 End: 50-10-8247Gshynkf encounter procedurePabrenda Viktoria ROWE [facility] Start: 10-07-2022 End: 53-97-4055wrqqdifwkfNgwax Kuns Other [employer] Other Start: 13-55-6884Kvbihkjzj encounterTeresa FraustojoeRIGOBERTO Family Medicine [place]Start: 09-27-2022 End: 02-39-0969sekkzlikjvBQ Teresa Lynch Work Phone: [facility] Work Phone: Start: 09-27-2022 End: 24-83-1536Syamazz encounter procedureDO Teresa Lynch Work Phone: [facility]-Lab [place] Work Phone: Start: 09-21-2022 End: 20-83-0944typyrqnhanUujbo Kuns Other [employer] Other Start: 53-97-5267Wjbcdzrwu encounterTeresa FraustojoeRIGOBERTO Family Medicine [place]Start: 09-14-2022 End: 37-16-4043toibstdjgwUklju Kuns Other [employer] Other Start: 43-85-9853Iksfiqlph encounterBryan JettsFPG Family Medicine [place]Start: 09-02-2022 End: 25-12-4749Ewtrvyx encounter procedureDO Teresa Lynch Work Phone: [facility]-MRI [place] Work Phone: Start: 08-25-2022 End: 33-78-7276vbfxpuomjhXnvrkk [employer] Other [employer] Other Start: 22-94-6126Zamubfubm encounterTondra MapFPG Referral CoordinatorStart: 08-22-2022 End: 75-88-1398zzmjngelepZmwov Jetts Other [employer] Other Start: 16-11-1984Tdvybtwcy encounterBryan JettsFPG Family Medicine [place]Start: 08-05-2022 End: 37-00-9208fmezormiphTrmok Kuns Other [employer] Other Start: 85-41-6883Prymqadod encounterBryan JettsFPG Family Medicine [place]Start: 08-04-2022 End: 94-91-4660eqgblydnhlVmref Jetts Other [employer] Other Start: 45-52-4631Jplkboint encounterBryan JettsFPG Family Medicine [place]Start: 07-28-2022 End: 51-29-2360tugcrkxkhkKvqxn Kuns Other [employer] Other Start: 24-60-5640Bxudnlwwt encounterBryan JettsFPG Referral CoordinatorStart: 07-25-2022 End: 79-61-3346qkzfoymopdFnbew Kuns Other [employer] Other Start: 21-73-2287Mqjwzqd evaluation of patient and reportTeresa Tenorio Family [facility] [place]Start: 07-19-2022 End: 19-10-0201budklufhpdHjttb Kuns Other [employer] Other Start: 67-94-0447Xuwrqlhof encounterBrygorge Jona Family [facility] [place]Start: 07-15-2022 End: 10-62-3730cesoabmxwvAvuyl Kuns Other [employer] Other Start: 70-67-5264Vyciihxpc encounterTeresa Jona Family [facility] [place]Start: 07-13-2022 End: 63-48-4200kikuqwchmvMzmft Kuns Other [employer] Other Start: 61-17-8296Ikhemeh evaluation of patient and reportPhillipgorge Tenorio [facility] CastaliaStart: 41-28-9464ozwmhgzyneNwulatoryDr. Raulito Inman IIFacility:[id number]: 07-05-2022 End: 64-39-1971zbzfvihlltYqppg Kuns Other [employer] Other Start: 86-88-1587Dpznmhrne encounterPhillipgorge Tenorio Family Medicine [place]aliaStart: 83-42-1737Yz RenewalTeresa Lynch Work Phone: [phone]-IytsfMonticello Hospital-[facility] 250 DO Work Phone: Start: 07-04-2022 End: 46-04-5300neunbvyfvhWrugw Kuns Other [employer] Other Start: 95-99-6370Fzfoiy outpatient visit 25 minutes Teresa FraustoPortia Family Medicine [place]Start: 06-30-2022 End: 60-82-8398uektfuanhgEbsfw Kuns Other [employer] Other Start: 08-81-4267Cqaxaaikt encounterBryan JettsFPG Family Medicine [place]Start: 05-25-2022 End: 22-33-1876bbdwuhukbxLtudv Kuns Other [employer] Other Start: 69-61-5129Euuwywbvr encounterBryan KunsFPG Family Medicine [place]Start: 04-25-2022 End: 14-16-7299bywfwmiefyDgqqe Kuns Other [employer] Other Start: 51-44-9648Rlzujejfd encounterBryan KunsFPG Family Medicine [place]Start: 04-19-2022 End: 23-21-1987fchfbdvbbzPrpny Kuns Other [employer] Other Start: 99-15-1099Glvzqsgbo encounterBryan KunsFPG Family Medicine [place]Start: 03-22-2022 End: 12-28-4871xqulgxnygzXvkow Kuns Other [employer] Other Start: 24-82-6922Kiglemtrc encounterBryan KunsFPG Family Medicine [place]Start: 03-01-2022 End: 16-26-0994hwhdbcvvzvIwaea Kuns Other [employer] Other Start: 09-51-1377Xlzohhydt encounterBryan KunsFPG Family Medicine [place]Start: 02-18-2022 End: 60-44-8493fvgtqhnyzhSnksp Kuns Other [employer] Other Start: 82-09-5577Mloawffnm encounterBryan KunsFPG Family Medicine [place]Start: 02-15-2022 End: 54-29-3025kyvthyjikjVina Fitt Other [employer] Other Start: 53-36-2599Nohxmm outpatient visit 25 minutes Teresa LynchG Family Medicine [place]Start: 04-56-0367Cbaurekao encounterDachitra Rushingnovant health new [facility] orthopedic hospitaltwila [facility] ClinicStart: 01-21-2022 End: 42-92-7650wxfhfsccoyAqems Kuns Other [employer] Other Start: 30-58-4079Pbetnjgpo encounterBrygorge LynchFPG Family Medicine [place]Start: 01-19-2022 End: 15-61-2221cfwkgziyjbTmkvj Kuns Other [employer] Other Start: 14-49-3794Sicotatbt encounterBrygorge LynchFPG Family Medicine [place]Start: 01-13-2022 End: 74-13-2397bgcngmmgeiMqpjw Kuns Other [employer] Other Start: 81-18-6368Ihwvttnfk encounterBrygorge LynchFPG Family Medicine [place]Start: 12-23-2021 End: 78-61-6137fbyxqrfczcBikqs [employer]etts Other [employer] Other Start: 12-50-6854Ukittzjed encounterBrygorge LynchFPG Family Medicine [place]Start: 11-24-2021 End: 98-88-3258wneiuzvpfnKxqaz Kuns Other [employer] Other Start: 40-57-3187Uprcoxmvm encounterBrygorge FraustosFPG Family Medicine [place]Start: 58-71-4419Fz RenewalTeresa Lynch Work Phone: [phone]-Stdsb [facility] 250 DO Work Phone: Start: 55-84-3833Rlilgr outpatient visit 25 minutes Teresagorge Lynch Work Phone: [phone]-Tzlmu [facility] 250 DO Work Phone: Start: 10-25-2021 End: 23-59-5026rqorgziwooTpwde Kuns Other [facility] [employer] Other Start: 82-52-9448Jkebhhkyf encounterBrygorge VillagomezG Family Medicine [place]Start: 10-19-2021 End: 84-67-5242msyzushvcyGupo Bakhous Other [employer] Other Start: 45-89-2441Verdhi outpatient visit 25 minutes Azjuan Jorgensen NephrologyStart: 10-18-2021 End: 80-00-4793cosvphoeklEhib Bakhous Other [facility] [employer] Other Start: 56-27-6034Eempymkki encounterAmina GraciaZACKG NephrologyStart: 10-12-2021 End: 23-19-5968eqvjhqivuuVBUALA SAMSA .Facility:X3Bqjcw: 10-08-2021 End: 25-70-0162hcgjgphmosWbtac Kuns Other [facility] [employer] Other Start: 17-03-7380Kellmaubv encounterBrygorge VillagomezG Family Medicine [place]Start: 09-22-2021 End: 11-91-1442egbjathjwsDllkj Kuns Other [employer] Other Start: 94-42-5388Qgzjomffm encounterBrygorge FraustosFPG Family Medicine [place]Start: 09-21-2021 End: 73-55-3024gfcmgogxxcUyven Kuns Other [employer] Other Start: 01-70-9879Vbjxbbuxj encounterTeresa FraustoEdmundG Family Medicine [place]Start: 08-09-2021 End: 83-66-4935furejbezumJuhbt Kuns Other [employer] Other Start: 69-35-8811Inrxdfoaf encounterTeresa FraustojoeFPG Family Medicine [place]Start: 08-02-2021 End: 68-65-9404elbtmihaqlVwbya Kuns Other [employer] Other Start: 09-00-7611Ontchwkla encounterTeresa FraustojoeFPG Family Medicine [place]Start: 07-27-2021 End: 23-57-2345dnzyxoelgwWnklx Kuns Other [employer] Other Start: 91-75-5188Jboomq outpatient visit 25 minutes Teresa FraustojoeZACKG Family Medicine [place]Start: 06-23-2021 End: 01-00-6169kavnradwdqKkxjd Kuns Other [employer] Other Start: 23-18-7463Lgwvovnsi encounterTeresa FraustojoeFPG [facility] CareStart: 18-26-7377Mk RenewalTeresa Lynch Work Phone: [phone]-Grodt [facility] 250 DO Work Phone: Start: 05-03-2021 End: 44-87-5474ugmxjbripqFbhyh Kuns Other [employer] Other Start: 68-92-7725Kwgrlnfpm encounterTeresa FraustojoeFPG Family [facility] [place] Procedures DateProcedureProcedure DetailPerforming ClinicianStart: 30-79-2459Ea strs tst xers&/or rx cont ecg trcg Terrence Arnold MD Work Phone: Start: 15-97-1482Rhuoy chest X-rayTeresa Lynch DO Work Phone: Start: 75-07-7982GE angiography of headBrygorge Lynch DO Work Phone: Start: 49-36-3912DU angiography of neck vesselsBryogrge Lynch DO Work Phone: Start: 79-30-7249YG of head without contrastBrygorge Lynch DO Work Phone: Start: 29-10-1404Isohg chest X-rayTeresa Lynch DO Work Phone: Start: 45-01-4358UutxtxaejzguimkrzxffzzzikkZmkutl Russell MD Work Phone: Start: 81-44-2826UNG of abdomen with contrast Kait Sy Work Phone: Start: 06-08-2853Wlsuqxlbplrgolf of liverMD Kait Dan Work Phone: start: 36-14-3010Popjh X-ray of left elbowMD Kait Dan Work Phone: Start: 57-11-8067Nvcut X-ray of left shoulderMD Kait Dan Work Phone: Start: 58-77-6771Yvyucudcnjzoafj of bilateral kidneys MD Kait Dan Work Phone: Start: 33-02-6229LEA of headMD Kait Dan Work Phone: start: 51-31-6114Odbqf chest X-rayMD Kait Dan Work Phone: Start: 24-55-2304VY angiography of headMD Kait Dan Work Phone: start: 65-95-6849LD angiography of neck vesselsMD Kait Dan Work Phone: start: 52-82-0640PA of head without contrastMD Kait Dan Work Phone: start: 97-07-8146Xblru culture for bacteria, including anaerobic screenMD Kait Dan Work Phone: start: 78-19-4487Lrmkyejfxiv Panel (PCR)MD Kait Dan Work Phone: start: 54-08-3062Ipalzysyupu Panel (PCR)Kait Dan MD Work Phone: start: 87-82-8113VS Kait Sy Work Phone: start: 87-13-9378Evvbxvbl resonance angiography of head without contrastMD Kait Dan Work Phone: start: 26-29-2105Iutirswa screenBryan KunsComment on above:Order Comment: Number of units to transfuse now? 1Result Comment: PERFORMED BY:[facility] [place], [place] [phone] MEDICAL DIRECTORCLIFFORD LOBATO M.D.Start: 47-42-1414B- ray of right kneeMD Kait Dan Work Phone: start: 51-64-7300Uucfbic ultrasonography of bilateral carotid arteriesMD Kait Dan Work Phone: start: 10-07-7309IG of head without contrastMD Kait Dan Work Phone: start: 12-57-7894Wnmqzakb tomography of abdomen and pelvis with contrastMD Kait Dan Work Phone: Start: 95-27-7284PCUK-CoV-2, Influenza & RSV (PCR)MD Kait Dan Work Phone: start: 42-95-8751Ytaft nucleic acid assayKait Dan MD Work Phone: start: 94-37-4379Hteog chest X-rayMD Kait Dan Work Phone: Start: 84-87-9727Zwpjlrjojv of leg through tibia and fibulaMohamed Simon Start: 18-33-4240HVB CBC WITH AUTO DIFFMohamed Fm Simon HERRERA Work Phone: [phone]: 50-40-1782Dgesltkxes through metatarsal bones Mike Simon Start: 67-49-5012Prajs Culture 1MD Kait Dan Work Phone: Start: 87-79-8622Xcohw Culture 2MD Kait Dan Work Phone: Start: 18-63-8775LG Kait Dan Work Phone: Start: 84-20-8673Rnmez Culture 1DO Teresa Lynch Work Phone: Start: 72-96-4528Zpmxr Culture 2DO Teresa Lynch Work Phone: Start: 23-82-3525Khpgh Culture 1DO Teresa Lynch Work Phone: Start: 79-26-8541Rough Culture 2DO Teresa Lynch Work Phone: Start: 01-34-5444Ppute depression screening assessment Franny Yu MD Work Phone: Start: 71-67-7000Hsf routine ecg w/least 12 lds w/i&r Raulito Inman MD Work Phone: Start: 10-06-2023 End: 92-45-8614Eapzgkh of amputation of footStatus post partial amputation of right foot ([facility])Guero Tam DO Work Phone: Start: 43-92-0540Skkl Fast SmearDO Teresa Lynch Work Phone: Start: 88-51-5377TRZ Specimen ProcessingDO Teresa Lynch Work Phone: Start: 28-94-3891Yezokkpuclc observation [Identifier] in Unspecified specimen by Gram stainDO Teresa Lynch Work Phone: Start: 21-22-4622Dhprin CultureDO Teresa Lnych Work Phone: Start: 89-73-2797Hmbwz Culture 1DO Teresa Lynch Work Phone: Start: 76-05-0907Hjput Culture 2DO Teresa Lynch Work Phone: Start: 89-40-8027Lszsd CultureDO Teresa Lynch Work Phone: Start: 06-03-7825Opybgrjkaxd observation [Identifier] in Unspecified specimen by Gram stainDO Teresa Lynch Work Phone: Start: 09-09-0223Pxcu Fast CultureDO Teresa Lynch Work Phone: Start: 25-94-2833Pcib Fast SmearDO Teresa Lynch Work Phone: Start: 46-91-4009RUL Specimen ProcessingDO Teresa Lynch Work Phone: Start: 42-97-0949Hrqulvupkgo observation [Identifier] in Unspecified specimen by Gram stainDO Teresa Lynch Work Phone: Start: 66-70-9448Tjwpgj CultureDO Teresa Lynch Work Phone: Start: 04-55-2750Kdkvvjzojkw observation [Identifier] in Unspecified specimen by Gram stainDO Teresa Lynch Work Phone: Start: 19-74-1455Shskk Culture 1DO Teresa Lynch Work Phone: Start: 74-43-4658Vuvfy Culture 2DO Teresa Lynch Work Phone: start: 77-87-9721Lumjhblpuep observation [Identifier] in Unspecified specimen by Gram stainDO Teresa Lynch Work Phone: Start: 06-01-5497Norgj CultureDO Teresa Lynch Work Phone: Start: 00-57-0230Adoby Culture 1DO Teresa Lynch Work Phone: Start: 77-19-5453Ckmng Culture 2DO Teresa Lynch Work Phone: Start: 47-55-6024Tijkpf scan of lower limb veinsDO Teresa Lynch Work Phone: Start: 38-40-9127Wqmymm scan veins of upper limbDO Teresa Lynch Work Phone: Start: 68-20-5106Oahtb chest X-rayDO Teresa Lynch Work Phone: Start: 33-38-4866Fjbqjustdkyma prostatectomyPatricgloria ROWE Start: 85-18-0531Umpbdmg of percutaneous transluminal coronary angioplastyHistory of PTCEstefani Inman MD Work Phone: Start: 32-00-6659Ausnyswbuucfl cystoscopyPatricgloria ROWE Start: 42-14-6150SFP of headDO Teresa Lynch Work Phone: Start: 09-77-2917Ltjil colonoscopyTeresa Lynch Work Phone: AngiographyMohamed Simon Comment on above:RLE Angiogram with drug coated ballooningAppendectomyTeresa Guerra Rory Work Phone: AppendectomyPatrick ROWE Bilateral Carpal Tunnel SurgeryPatrick ROWE Bilateral Eye Surgery 1Patrick ROWE Comment on above:bilateral cataracts with iol implants Bilateral Eye Surgery 2Mohamed Simon Comment on above:bilateral cataracts with iol implants Cardiac catheterizationTeresa Guerra Rory Work Phone: cardiac stentsPatrick ROWE Cataract extraction and insertion of intraocular lens Yeyo ROWE Cataract surgeryTeresa Lynch Work Phone: ColonoscopyPatrick ROWE Decompression of median nerveTeresa Lynch Work Phone: History of amputation of footStatus post partial amputation of right foot ([facility])Guero Chacon [employer] Work Phone: History of amputation of footStatus post partial amputation of right foot ([facility])Guero Chacon [employer] Work Phone: History of amputation of footStatus post partial amputation of right foot [place]Guero Chacon [employer] Work Phone: History of amputation of footStatus post partial amputation of right foot ([facility]Guero Chacon [employer] Work Phone: History of amputation of footStatus post partial amputation of right foot ([facility])Guero Chacon [employer] Work Phone: History of amputation of footStatus post partial amputation of right foot ([facility]Guero Chacon [employer] Work Phone: History of amputation of footStatus post partial amputation of right foot ([facility]Guero Chacon [employer] Work Phone: History of percutaneous transluminal coronary angioplastyHistory of PTCABrmoncho Guerra Rory Work Phone: History of percutaneous transluminal coronary angioplastyHistory of PTCEstefani Inman MD Work Phone: Procedure on backBolvin Lynch Work Phone: Comment on above:nerve ablation;Procedure on back Yeyo ROWE Scrotum and testicle operationTeresa Lynch Work Phone: Plan of Treatment DateCare ActivityDetailAuthorStart: 20-29-7880WVkG/Tdap/Td Vaccines (2 - Td or Tdap)DTaP/Tdap/Td Vaccines (2 - Td or Tdap)[facility] Start: 61-76-5819Jduni BMI ScreeningAdult BMI ScreeningProWilson Health Start: 22-42-6316YgjdtbxhjuybxsgeRlhylikiqbwmugQsovqdsqsd [facility] Start: 00-97-7592Piaqhbz CounselingTobacco CounselingUniversity Hospitals Health System System Start: 04-03-2025 End: 63-67-1045Zeiwkew encounter mawxmslll29/30/2025 11:00 AM EDT [facility] [place] [address] [place] [address] Mike Montes MD [address], [address] [address] [facility] [place]remontStart: 59-93-3377Alhfd BMI ScreeningAdult BMI ScreeningProOhiohealth Grady Memorial [facility] SystemStart: 03-12-2025 End: 39-05-4224Gcxeguk encounter tvaemskwg73/08/2025 3:50 PM EDT Office Visit [facility] [address] [facility] [address] [place] [address] Bernard De La Cruz MD [address] [facility] [address] [place] [address] 332- [facility] HospitalStart: 33-55-7835Cufyn BMI ScreeningAdult BMI ScreeningProRiverview Health Instituteca Health SystemStart: 95-43-8473Cjteehq ScreeningTobacco ScreeningProRiverview Regional Medical Center Health SystemStart: 56-38-5453Mzhmu BMI ScreeningAdult BMI ScreeningProRiverview Health Instituteca [facility] SystemStart: 02-27-2025 End: 40-10-0932KZH Abdominal Aorta and Bilateral Runoff Vessels W contrast IVCT angiogram abdominal aorta with runoff Imaging Routine 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) Expected: 02/27/2025, Expires: 02/27/2026[facility] SystemComment on above:Expected: 02/27/2025, Expires: 02/27/2026Start: 02-27-2025 End: 44-51-6209VF.doppler Extremity arteries - bilateral for physiologic artery studyVas art doppler lwr bilat mult lev/PVR Vascular Ultrasound Routine 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) Expected: 02/27/2025, Expires: 02/27/2026[facility] Work Phone: Comment on above:Expected: 02/27/2025, Expires: 02/27/2026Start: 90-58-2676MXVDN-19 Vaccine ( season)COVID-19 Vaccine ()[facility] HealthcareStart: 01-94-0676Jebvsghkj vaccinationProMedica Health SystemStart: 77-91-9568Rwwcm BMI ScreeningAdult BMI ScreeningProMedica Health SystemStart: 35-08-1022Ggkracg ScreeningTobacco ScreeningProMedica Health SystemStart: 36-75-2509Cmmwh BMI ScreeningAdult BMI ScreeningProMedica Health SystemStart: 36-96-4265Knfqiwy ScreeningTobacco ScreeningProMedica Health SystemStart: 27-76-7150Mgujg BMI ScreeningAdult BMI ScreeningProMedica Health SystemStart: 28-23-6853Duphsue ScreeningTobacco ScreeningProMedica Health SystemStart: 33-66-4700Tqrvs BMI ScreeningAdult BMI ScreeningProMedica Health SystemStart: 26-12-7292Vyzxo BMI ScreeningAdult BMI ScreeningProMedica Health SystemStart: 00-48-8603Bbihikk ScreeningTobacco ScreeningProMedica Health SystemStart: 13-69-7924Ckcdnld ScreeningTobacco ScreeningProMedica Health SystemStart: 60-48-0796Fpnjvwaslq ScreeningDepression ScreeningProMedica Health SystemStart: 56-40-0906Qmwceld referralSelect [facility] Work Phone: Start: 72-14-5362Buffy BMI ScreeningAdult BMI ScreeningProMedica Health SystemStart: 10-21-2024 End: 04-10-0624Voyoeca encounter wylgejcpb76/19/2025 8:00 AM EDT Office Visit [facility] [address] [facility] [address] [place] [address] Dolores Pickard, TILTING [employer]ER-V/STOL LANDING SIGNAL OFFICER [address] [place] [address] [facility] HospitalStart: 89-17-2214Zsqoy BMI ScreeningAdult BMI ScreeningProOhiohealth Grady Memorial Hospital SystemStart: 68-17-8331Tphtkvb ScreeningTobacco ScreeningProOhiohealth Grady Memorial Hospital SystemStart: 32-82-0247OsjvmapdrSouthern [place] Medical Centertart: 32-89-2119FttveintcSouthern [place] Medical Centertart: 10-11-2024 End: 37-59-2879TvvdbsarbSouthern Ohio Medical Centertart: 10-10-2024 End: 83-18-4063HtbygybbmSouthern [place] Medical Centertart: 15-96-9939Gdlmyhko admissionSouthern [place] Medical Centertart: 52-28-5028Lmsdetik to cardiologistSouthern [place] Medical Centertart: 19-52-7678Rhtwbxm referral [facility] Work Phone: Start: 30-30-8250SfpcllntgGalion Hospital Start: 10-59-8527EesdnuluxSouthern [place] Medical Centertart: 08-11-2024 End: 47-06-0294YmnxzbczbSouthern [place] Medical Centertart: 55-56-8979Maxianzs therapy procedureSouthern [place] Medical Centertart: 49-02-6943Sdedcozr to occupational therapistSouthern [place] Medical Centertart: 34-54-7459Yjuvkadp admissionSouthern [place] Medical Centertart: 98-42-9610Fojyhibg to nephrologistSouthern [place] Medical Centertart: 48-21-6324NS angiography of headSouthern Ohio Medical Centertart: 46-81-7373DZ angiography of neck vesselsSouthern [place] Medical Centertart: 71-90-0674CW Head WO contrast [facility] Centertart: 05-54-2906RQ of head without contrastCT head stroke alert wo [facility] Hospitaltart: 43-26-5531Hovuy chest X-rayXR chest 1V portableSouthern Ohio Medical Centertart: 77-07-5140PG Chest Single viewSouthern [place] Medical Centertart: 08-11-2024 End: 95-12-8005LyfwyapjxSouthern [place] Medical Centertart: 05-51-9263KgmyduhuxSouthern [place] Medical Centertart: 61-88-2813YbrupjidlSouthern [place] Medical Centertart: 03-11-2024 End: 12-57-1363Cflnzra encounter jitlootqe31/07/2024 8:40 AM EDT Office Visit [place] [address] [facility] [address] [place] [address] Bernard De La Cruz MD [address] [facility] [address] [place] [address] [facility] HospitalStart: 42-52-2404Hndfrpie to trimming press operator [facility] [place] [facility] Centertart: 38-06-3168Sohwreffhqboa metabolic 2000 panel - Serum or PlasmaSouthern Ohio Medical Centertart: 03-09-2024 End: 84-52-0532FjhszfilaSouthern [place] Medical Centertart: 49-78-1014Bkcofwhg to psychiatristSouthern [place] Medical Centertart: 73-04-2550Ecbsotqv to neurologistSouthern [place] Medical Centertart: 03-08-2024 End: 45-94-1105DqkkycmwbSouthern [place] Medical Centertart: 10-82-6195Kdudcgry admissionSouthern [place] Medical Centertart: 62-29-4803Kzaru chest X-ray [facility] Centertart: 02-90-3104Jseplvlvhwta consultation with patientSouthern Ohio Medical Centertart: 26-25-5050Hreru culture for bacteria, including anaerobic screenSouthern Ohio Medical Centertart: 65-87-4660IagcneuuoSouthern Ohio Medical Centertart: 25-44-9672Gccnuocw to gastroenterologistSouthern [place] Medical Centertart: 93-88-6036Qhorbqos to gastroenterologistSouthern [place] Medical Centertart: 1965Trqzehnj to neurologistSouthern [place] Medical Centertart: 11-06-1641DlfhotkabSouthern [place] Medical Centertart: 40-65-9952Eabnaffh admissionSouthern [place] Medical Centertart: 02-29-2024 End: 27-13-6389Heeplnn encounter /26/2024 9:30 AM EDT [facility] [address] [place] [address] Mike Montes MD [address], [facility] [address] [place] [address] [facility] SurgeryStart: 52-56-1807SHKXF-19 Vaccine ( season)COVID-19 Vaccine ( season)[facility]: 22-85-0839OGVIJ-19 Vaccine ()COVID-19 Vaccine ()[facility] Start: 11-48-4232Odtbojsop vaccinationUK HealthcareStart: 12-21-2023 End: 39-71-7955Xazitkw encounter awnctquom16/18/2024 8:40 AM EDT Office [facility] [address] [place] [address] Mike Montes MD [address], [facility] [address] [place] [address] [facility] CareStart: 11-30-2023 End: 61-69-4201Agrtgqn encounter yprotqreq97/27/2024 8:50 AM EDT Office [facility] [address] [place] [address] Mike Montes MD [address], [facility] [address] [place] [address] [facility]ound CareStart: 11-23-2023 End: 98-77-0172Mbfqdkt encounter procedureProGenesis Hospital - VascularStart: 11-23-2023 End: 53-76-5470Mxwiype encounter zlpdjflfu75/20/2024 9:40 AM EDT Office [facility] [place] [address] Mike Montes MD [address], [facility] [address] [place] [address] [facility] Wound CareStart: 77-70-0661EIN, Provider: Raulito Inman, Status: Pen, Time: 2:40 PMFUV, Provider: Raulito Inman, Status: Pen, Time: 2:40 PM- [facility] [address] DO Work Phone: Start: 11-07-2023 End: 96-17-6157Gcpovrmqk to same day surgery tvuwgz3011/07/2023 3:00 PM EDT - 11/07/2023 4:00 PM EDT Surgery [facility] - Cardiac Cath [address] [facility] [place] [address] Mike Montes MD [address], [facility] [address] [place] [address] Vascular Invasive Right lower extremity angiogramwith interventionProLakehealth Beachwood Medical Center Cardiac CathComment on above:Vascular Invasive Right lower extremity angiogram with interventionStart: 27-59-6026Xxrvkwmazc hospital visit by znklkyrej27/04/2024 3:00 PM EDT Hospital Encounter [facility] [address] [place] [address] Mike Montes MD [address], [address] [place] [address] 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 ([facility]) [facility] - Cardiac CathComment on above: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 ([facility])Start: 10-18-2023 End: 16-03-3826GLH Abdominal Aorta and Bilateral Runoff Vessels W contrast IV [employer] SystemComment on above:Expected: 10/18/2023, Expires: 10/17/2024Start: 10-18-2023 End: 31-85-0911EL.doppler Extremity arteries - bilateral for physiologic artery studyProMedica Work Phone: Comment on above:Expected: 10/18/2023, Expires: 10/17/2024Start: 92-64-9057Bold Fast CultureAcid Fast [facility] Centertart: 78-00-0183Osmzj Culture 1Blood Culture 1FMary Rutan Hospitaltart: 19-81-4104Uatfv Culture 2Blood Culture 2FMary Rutan Hospitaltart: 89-53-2229Qibhu CultureWound [facility] Centertart: 89-53-6234Zddyepp CultureAbscess [facility] Centertart: 01-19-3454Cqwj Fast CultureAcid Fast [facility] Centertart: 04-55-6024Fqiuo CultureWound [facility] Centertart: 65-49-9236Pylypp scan of lower limb veinsUS venous duplex LE BIFMary Rutan Hospitaltart: 94-69-6252AZ Lower extremity vein - bilateralSouthern [place] Medical Centertart: 07-12-2023 Duplex scan veins of upper limbUS venous duplex UE LTSouthern Ohio Medical Centertart: 23-08-8944XT Upper extremity vein - leftSouthern Ohio Medical Centertart: 17-65-9436RYA, Provider: Dolores Velazquez, Status: Pen, Time: 10:00 AMFUV, Provider: Dolores Velazquez, Status: Pen, Time: 10:00 [facility] [address] DO Work Phone: Start: 46-25-2320ORCKJ-19 Vaccine ( season) COVID-19 Vaccine ( season)[facility] HealthcareStart: 63-40-9893NOHLLP NUC, Provider: CHALINO HHVI NUCLEAR 01,[id number], Status: Pen, Time: 8:30 AMSTRESS NUC, Provider: CHALINO HHVI NUCLEAR 01,[id number], Status: Pen, Time: 8:30 AMMP-[facility] 600 DO Work Phone: Start: 57-67-3718WSL, Provider: Raulito Inman, Status: Pen, Time: 9:20 AMFUV, Provider: Raulito Inman, Status: Pen, Time: 9:20 AMMP-[facility] CenterChal[facility] 250 DO Work Phone: Start: 53-92-1747QFN, Provider: Raulito Inman, Status: Pen, Time: 9:30 AMFUV, Provider: Raulito Inman, Status: Pen, Time: 9:30 AMMP-[facility] CenterHouston 250 DO Work Phone: Start: 18-15-6353Msxuchkddaxj vaccinationPneumococcal Vaccine (2 of 2 - PCV)[facility]: 03-05-2019 Pneumococcal Vaccine: Pediatrics (0 to 5 Years) and At-Risk Patients (6 to 64 Years) (2 of 2 - PCV)Pneumococcal Vaccine: Pediatrics (0 to 5 Years) and At-Risk Patients (6 to 64 Years) (2 of 2 - PCV)[facility]: 38-49-5800Cjhpthrnkwbvhj of varicella zoster vaccineZoster (Shingles) Vaccine (1 of 2)[employer] SystemStart: 75-60-1194Jlrokuah specific antigen measurementPSA Prostate Cancer ScreeningFirelands Regional Medical Center: 72-67-5724Xpflbl Vaccines (1 of 2)Zoster Vaccines (1 of 2)[facility]: 72-86-3639HUyB/Tdap/Td Vaccines (1 - Tdap)DTaP/Tdap/Td Vaccines (1 - Tdap)[facility]: 81-33-1599STyC,Tdap and Td Vaccines (1 - Tdap)DTaP,Tdap and Td Vaccines (1 - Tdap)[employer] SystemStart: 49-30-7303Voplcvkfx B Vaccines (1 of 3 - 19+ 3-dose series) Hepatitis B Vaccines (1 of 3 - 19+ 3-dose series)[facility]: 58-76-0202Niuld screening for proteinDiabetes: Urine Protein ScreeningUnOhioHealth Nelsonville Health Center: 62-37-8332Ufvwk BMI Follow Up PlanAdult BMI Follow Up PlanGranville Medical Centertart: 72-32-5207Hehtq BMI ScreeningAdult BMI ScreeningGranville Medical Centertart: 38-27-4019Jwsjojro foot examinationDiabetic Foot ExamGranville Medical Centertart: 1983 Hepatitis C screeningHepatitis C ScreeningUnAdena Health System Start: 53-19-2882Bwbjchoayk ScreeningDepression ScreeningUpper Valley Medical Center Start: 92-51-4403Nmxtwnd ScreeningTobacco ScreeningGranville Medical Centertart: 49-32-1945Iaoqujcm foot examinationDiabetes: Foot ExamUnOhioHealth Nelsonville Health Center: 24-75-2724Cqqwerbz screeningDiabetes: Retinopathy Screening [facility]: 78-34-2544KWQ Vaccines (1 of 1 - Standard series)MMR Vaccines (1 of 1 - Standard series)[facility]: 09-68-1872Ikbojfmnbs measurementCreatinine LevelUnOhioHealth Nelsonville Health Center: 27-38-7653VtcvqvdlcemipqdbVbrwiukesyoktrMmcyrlwaiy [facility]Start: 51-02-2659Gnrqmuhu screeningDiabetic Ophthalmology ExamGranville Medical Centertart: 10-80-0506Jrpdazxmrw A1c measurementDiabetes: Hemoglobin Z2XQzkvcmsszaOhioHealth Nelsonville Health Center: 88-96-0489VWT screeningHIV ScreeningUnOhioHealth Nelsonville Health Center: 30-26-1510Flbfy panelLipid PanelUnOhioHealth Nelsonville Health Center: 74-17-5966Longnymtx measurement Potassium LevelUnOhioHealth Nelsonville Health Center: 95-25-7647Frnzvraga for malignant neoplasm of colonUnOhioHealth Nelsonville Health Center: 1965 Statin Use: CardiovascularStatin Use: CardiovascularUpper Valley Medical Center Start: 80-37-2968Wqeczn Use: DiabeticStatin Use: DiabeticLancaster Municipal HospitalFanchimp [facility] Start: 96-39-3886Dhizkpk CounselingTobacco CounselingUpper Valley Medical Center Start: 72-46-8193Dodgb screening for proteinDiabetes: Urine Protein Screening [facility] HealthcareStart: 46-27-9609Xhdvnp Adult PhysicalYearly Adult PhysicalUnAdena Health SystemBacteria identified in Blood by CultureGalion HospitalComchristus st. [facility] metabolic 1999 panel - Serum or PlasmaGalion HospitalComchristus st. 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 ([facility]) 1 Occurrences starting 10/18/2023 until 10/17/2024Upper Valley Medical CenterComment on above:1 Occurrences starting 10/18/2023 until 10/17/2024 End: 86-33-1005Jqmbizfcuh includes GFR, serumCreatinine includes GFR, serum Lab Routine 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 ([facility] 1 Occurrences starting 02/27/2025 until 02/27/2026ProOhiohealth Grady Memorial Hospital SystemComment on above:1 Occurrences starting 02/27/2025 until 02/27/2026Microalbumin [Mass/volume] in UrineGalion HospitalPatient Education [facility] Work Phone: Patient referralClinton Memorial Hospital [facility]tr Work Phone: Renal function 1999 panel - Serum or CentervilleRenal function 1999 panel - Serum or [place] End: 70-73-3144BO Heart [facility] Service [facility] Work Phone: Comment on above:Once for 1 Occurrences starting 01/17/2024 until 01/17/2024[facility] Immunizations Immunization DateImmunizationNotesCare YrnthceiVnnkbowo16-58-2394Alfhrf-XxyIDirx COVID-19 Vacc 30 MCG/0.3ML Intramuscular SuspensionTeresa Lynch Work Phone: [facility]05-21-2021Pfizer-BioNTech COVID-19 Vacc 30 MCG/0.3ML Intramuscular SuspensionTeresa Lynch Work Phone: [facility]08-12-2019influenza, seasonal, injectableBryan Rory Other [facility]08-12-2019influenza virus vaccine, unspecified formulationPaBionovo [facility]10-29-2018influenza virus vaccine, unspecified formulationPaWashiok [employer] [facility]10-29-2018influenza, injectable, quadrivalent, preservative freeDO Teresa Lynch Work Phone: [facility]10-01-2018influenza virus vaccine, unspecified formulationTeresa Lynch Work Phone: [phone]-SnqevAustin [facility] and Clinic 250 DO Work Phone: [phone]apcpdl polysaccharide vaccine, 23 valentTersea P Rory Work Phone: [phone]-KdggmAustin Hospital and Clinic 250 DO Work Phone: [phone]mf virus vaccine, unspecified formulationPaWashiogloria [employer] [facility]10-03-2016influenza, injectable, quadrivalent, preservative freeTeresa Lynch Work Phone: [facility]09-19-2016 pneumococcal polysaccharide vaccine, 23 valentPhillipan P Rory Work Phone: [facility] HospitalNEGATED: Highlighted row has not occurred!81-84-0350tnxwlbsjh virus vaccine, unspecified formulationMARYBEL VANG [facility] Payers DatePayer CategoryPayerPolicy ID2025Medicaid (Managed Care)[facility] [id number] 2025Medicaid HMO [facility] PL[facility] MEDICAID Member Subscriber Plan / Payer (Effective 2024-Present) Name: Myra Pickard Relation to Subscriber: Self Name: Myra Pickard Payer ID: [id number] (NAIC) Group ID: [id number] Type: Not on file Address: [place] [id number] [id number] 2024Medicaid [id number] Health Insurance [id number] Health Insurance [id number] Health Insurance [id number] [id number] [id number] 2.16.840.1.623288.3.579.2.593 [id number] 2.16.840.1.016143.3.579.2.467907-70-0247Bvddrbw [id number] 2.16.840.1.823457.3.57[id number] 2.16.840.1.585720.3.57[id number] 2.16.840.1.855380.3.57[id number] 2.16.840.1.595662.3.57[id number] 2.16.840.1.488654.3.57[id number] 2..840.1.245765.3.57[id number] 2.16.840.1.219373.3.57[id number] 2.16.840.1.614742.3.57[id number] 2..840.1.644040.3.57[id number] 2.16.840.1.270154.3.57[id number] 2.16.840.1.692263.3.579.2.190977-01-1377Fnlzavc12403010 2.16.840.1.391250.3.579.2.54080-26-9991Srruvtq46369319 2.16.840.1.344071.3.579.2.53993-86-9911Dfydrlx00993356 2.16.840.1.793643.3.579.2.81226-54-6135Xraqppy26052018 2.16.840.1.025465.3.579.2.65604-54-6239Wusfkzo01115568 2.16.840.1.633262.3.579.2.12458-65-2780Hklfcfb10593543 2.16.840.1.416212.3.579.2.43805-34-7863Gjngkqs09678522 2.16.840.1.254387.3.579.2.23534-14-6311Mxmaixq77453291 2.16.840.1.901136.3.579.2.58065-43-9604Itcmuwy83335278 2.16.840.1.336794.3.579.2.31799-28-8806Vukpwgm56034833 2.16.840.1.306962.3.579.2.15234-00-1204Mddmrus69594379 2.16.840.1.033639.3.579.2.41838-99-3963Tpbsaxq85140565 2.16.840.1.738928.3.579.2.74919-92-6700Yodidwm42456121 2.16.840.1.708626.3.579.2.05771-94-1986Vpjxesj83995049 2.16.840.1.301042.3.579.2.63138-57-2324Cnotrau00209341 2.16.840.1.377331.3.579.2.41925-64-6758Azayqqz99484670 2.16.840.1.090241.3.579.2.83574-35-3382Xniwuzk16646238 2.16.840.1.293465.3.579.2.36577-17-8684Hdbxrlb20252680 2.16.840.1.286372.3.579.2.60717-40-4492Fabnpvw31789025 2.16.840.1.344199.3.579.2.39268-87-6256Qqobswd37012811 2.16.840.1.769893.3.579.2.65446-64-6010Yqwkbax99818392 2.840.1.719068.3.579.2.52984-16-8519Zdvseav87341758 2..840.1.771605.3.579.2.99432-79-3358Iraseuu56399752 2.840.1.171310.3.579.2.98114-23-8661Mbeyzlj32708705 2.16840.1.449300.3.579.2.34795-77-8218Yvrkhcz10887972 2..840.1.930086.3.579.2.68595-94-8020Xifgile05898796 2.840.1.675204.3.579.2.87196-74-2637Uhpdvjj66676071 2.840.1.196576.3.579.2.67688-12-4883Lvsiosk93220360 2.16.840.1.071120.3.579.2.35249-74-9845Ophmnip84545504 2.16840.1.528486.3.579.2.33154-84-4036Lobcmic22616309 2.16.840.1.920200.3.579.2.71841-13-6002Gjpqzxa91265891 2.16840.1.322864.3.579.2.873165-66-4276Nnklcck47264862 2.16.840.1.071437.3.579.2.102968-03-5743Gilodhb54025582 2.16.840.1.732587.3.579.2.758594-36-6541Sneecxy34114062 2.16.840.1.754407.3.579.2.114316-44-7329Snxvzhj73773911 2.16.840.1.779008.3.579.2.310644-07-2886Hdrvnsz71283719 2.16.840.1.726739.3.579.2.141812-03-9724Pxvxsgr438509081 2.16.840.1.052030.3.579.2.407005-80-4554Lzgnpcy26426318 2.840.1.883560.3.579.2.516239-11-8208Yfmxjfu81498719 2.16.840.1.560650.3.579.2.534929-66-4016Lvoakzc23392319 2.16.840.1.973742.3.579.2.974925-47-0531Hlzvhcb01715562 2.16.840.1.342792.3.579.2.670896-82-3715Fjxaajv37829266 2.16.840.1.530867.3.579.2.26835-58-6575Qkuimwo08137585 2.16.840.1.145221.3.579.2.82482-49-0614Rcqrdbg86222679 2.16.840.1.024080.3.579.2.80609-07-0189Jjemhul14365255 2.16840.1.578041.3.579.2.02719-71-0862Rnbeyjs66101937738 2.16.840.1.295712.19 Ammoxxj00394539 2.16.840.1.004026.3.579.2.449Ejhomwj12705221 2.16.840.1.314919.3.579.2.440Lurbjie64137167 2.16.840.1.665913.3.579.2.531 Gvdewle60430588 2.16.840.1.369062.3.579.2.903Egtdkur07715060 2.16.840.1.049013.3.579.2.557Tdkeetv27891807 2.16.840.1.196972.3.579.2.531 Qivcjcb14911317 2.16.840.1.145146.3.579.2.107Tabsddo66625634 2.16.840.1.516236.3.579.2.531 Social History DateTypeDetailFacilityStart: 08-08-2023 End: 51-17-2767Qpgbskzy useCaffeine useTuscany Gardens Other Comment on above:2 cups coffee, 4-6 cups tea daily, occaional soda;qauit 07/2020;Start: 08-08-2023 End: 81-83-3321Mcg [facility] 07-14-2020 End: 45-46-2357Yrwefzg smoking status NHISSmoker (finding)[facility]: 23-63-1896Dzg [facility]-23-2022 End: 69-44-8656Uurdpfx smoking statusHeavy tobacco smoker (finding)[facility]: 05-24-3473Iyrmdhf smoking statusNeverExec[facility]: 95-77-7490Iyxntif smoking status NHISEx-smokerUniversity Hospitals of Kent Start: 10-05-1981 End: 08-71-4802Ybnbudx of tobacco useCigarette SmokerUniversity Hospitals Health System System Start: 10-24-2023 End: 26-03-3180Kukjlwx use and exposureSmokeless tobacco non-userUnAdena Health System Work Phone: Start: 10-24-2023 End: 33-12-0925Cznphmffo beverage intakeLifetime non-drinker (finding)[facility] Work Phone: Start: 99-95-8861Dhq assigned at birthNot on file [facility]: 10-14-2023 End: 59-60-7761Gmzxumiv to SARS-CoV-2 (event)Not sureUK HealthcareStart: 03-74-0506Jpxicdn smoking status NHISUnknown if ever smoked [facility]: 01-06-2015 End: 79-37-0677ErpTcpt (finding)[facility]: 10-05-1981 End: 44-01-0177Kglekwn smoking status NHISSmokes tobacco dailyPrem[facility] Health [facility] SystemStart: 11-10-2023 End: 54-40-6741Uplzauixy beverage intakeEx-drinker (finding)[facility] SystemHas the [employer], gas, oil, or water company threatened to shut off services in your home in past 12MoNoProMedica Health SystemHow often to you have a drink containing alcohol?2-4 times a monthProMedica Health SystemHow many standard drinks containing alcohol do you have on a typical day?1 or 2ProMedica Health SystemHow often do you have 6 or more drinks on 1 occasion?NeverProRiverview Regional Medical Center Health SystemStart: 05-04-2261VNYI Follow upSDOH Follow [facility]Select [facility] Work Phone: Sexual OrientationExecutive [facility] of [facility] Medical Equipment Procedure CodeEquipment CodeEquipment Original TextEquipment IdentifierDates Aortogram, abdominal, with bilateral lower extremity runoffIR STENT SMART 10 X 80 120 CMFDAStart: 81-72-3329Qwhencbqn, abdominal, with bilateral lower extremity runoffIR STENT SMART 10 X 80 120 CMFDAStart: 03-37-3694Tdaijjavj, abdominal, with bilateral lower extremity runoffIR STENT SMART 10 X 80 120 CMFDA Start: 02-65-7175Qdyakmata, abdominal, with bilateral lower extremity runoffIR STENT SMART 10 X 80 120 CMFDAStart: 89-29-2206Jglteyycm, abdominal, with bilateral lower extremity runoffIR STENT SMART 10 X 80 120 CMFDAStart: 89-74-5506Gxeqoljvc, abdominal, with bilateral lower extremity runoffIR STENT SMART 10 X 80 120 CMFDAStart: 23-95-4004Wmfsabssz, abdominal, with bilateral lower extremity runoffIR STENT SMART 10 X 80 120 CMFDAStart: 09-27-2018 Aortogram, abdominal, with bilateral lower extremity runoffIR STENT SMART 10 X 80 120 CMFDAStart: 12-76-3246Yplpvbhlb, abdominal, with bilateral lower extremity runoffFDAStart: 39-27-6847Aamflpoao, abdominal, with bilateral lower extremity runoffFDAStart: 55-12-7657Povfdkkvx, abdominal, with bilateral lower extremity runoffFDAStart: 27-82-9437Bdgltbyzz, abdominal, with bilateral lower extremity runoffIR STENT SMART 10 X 80 120 CMFDAStart: 35-27-1505Exhitfzla, abdominal, with bilateral lower extremity runoffIR STENT SMART 10 X 80 120 CMFDA Start: 34-98-2303Ybzuxftom, abdominal, with bilateral lower extremity runoffIR STENT SMART 10 X 80 120 CMFDAStart: 66-16-6458Kfbilbcoi, abdominal, with bilateral lower extremity runoffIR STENT SMART 10 X 80 120 CMFDAStart: 88-64-4042Rphfyyvfl, abdominal, with bilateral lower extremity runoffIR STENT SMART 10 X 80 120 CMFDAStart: 29-48-7630Utgyeahui, abdominal, with bilateral lower extremity runoffIR STENT SMART 10 X 80 120 CMFDAStart: 09-27-2018 Aortogram, abdominal, with bilateral lower extremity runoffIR STENT SMART 10 X 80 120 CMFDAStart: 74-30-7252Pxqebdpyf, abdominal, with bilateral lower extremity runoffIR STENT SMART 10 X 80 120 CMFDAStart: 18-00-9813Caruegsiq, abdominal, with bilateral lower extremity runoffIR STENT SMART 10 X 80 120 CMFDA Start: 66-82-7393Dizucsmss, abdominal, with bilateral lower extremity runoffIR STENT SMART 10 X 80 120 CMFDAStart: 51-54-1774Dgasewfjw, abdominal, with bilateral lower extremity runoffFDAStart: 31-96-7084Azbhzmgdi, abdominal, with bilateral lower extremity runoffFDAStart: 97-86-9405Equsf: 12-16-2013 ()[id number] FDAStart: 55-46-1916Zobcodw Syringe,Safety Needle 1 mL 30 gauge x 1/2 syringeStart: 81-60-0741Taw Needle, Diabetic (Comfort Ez Pen [place]) 32 gauge x 5/32 needleStart: 04-15-2024 Insulin Syringe,Safety Needle 1 mL 30 gauge x 1/2 syringeStart: 97-07-8884Mzj Needle, Diabetic (Comfort Ez Pen [place]) 32 gauge x 5/32 needleStart: 21-35-3679OYR Angiogram Unknown 01/08/24 Non Biological Left Femoral Artery/Vein FDAStart: 65-98-5914EOZ Angiogram Unknown 01/08/24 Non Biological Left Femoral Artery/VeinFDAStart: 18-57-3975KKE Angiogram Unknown 01/08/24 Non Biological Left Femoral Artery/VeinFDAStart: 44-43-7920Srjhb Vsc 50cm 6mm Lillian Thnwl Hep Propaten Ptfe Rem Rng - [id number] - [id number]_zznWtlhj: 11-08-2023 Comment on above:Description: RIGHT FEMORAL ARTERYStent Vsc Epic 10mm 100mm 120cm 6fr Rdpq Otw Slf Xpd Gw - [id number] ()[id number], 654145_[facility] FDAStart: 27-64-1294ZAJ Angiogram Unknown 01/08/24 Non Biological Left Femoral Artery/VeinFDAStart: 11-34-7240Uhewtci Syringe,Safety Needle 1 mL 30 gauge x 1/2 syringeStart: 04-17-1081Xuq Needle, Diabetic (Comfort Ez Pen [place]) 32 gauge x 5/32 needle Start: 92-43-5314Jnmlnbp Syringe,Safety Needle 1 mL 30 gauge x 1/2 syringe Start: 05-17-8831Ftv Needle, Diabetic (Comfort Ez Pen [place]) 32 gauge x 5/32 needleStart: 83-77-6336Bdeiblm Syringe,Safety Needle 1 mL 30 gauge x 1/2 syringeStart: 92-02-4717Brt Needle, Diabetic (Comfort Ez Pen [place]) 32 gauge x 5/32 needleStart: 78-01-0915Tarbcuz Syringe,Safety Needle 1 mL 30 gauge x 1/2 syringeStart: 20-33-6663Kdh Needle, Diabetic (Comfort Ez Pen [place]) 32 gauge x 5/32 needleStart: 46-39-2369Earthcb Syringe,Safety Needle 1 mL 30 gauge x 1/2 syringeStart: 89-80-9324Ycn Needle, Diabetic (Comfort Ez Pen [place]) 32 gauge x 5/32 needleStart: 29-05-2463Dgldytq Syringe,Safety Needle 1 mL 30 gauge x 1/2 syringeStart: 28-85-9080Ftp Needle, Diabetic (Comfort Ez Pen [place]) 32 gauge x 5/32 needleStart: 37-71-6428Ykqggws Syringe,Safety Needle 1 mL 30 gauge x 1/2 syringeStart: 32-12-6035Gvm Needle, Diabetic (Comfort Ez Pen [place]) 32 gauge x 5/32 needleStart: 39-35-4451XDB Angiogram Unknown 01/08/24 Non Biological Left Femoral Artery/VeinFDAStart: 01-08-2024 Goals DatePatient GoalDesired Activity/StatePersonal health goalComment on above: Evaluation of progress towards goal: Patient is planning to transition back to SNF at discharge. Functional Status MciiYvtryislpsDlpbigGyjdbgph48-70-1514Dqmqegffau statusPatient at Baseline [facility] Work Phone: [phone]) [phone]xv statusPatient at Baseline [facility] Work Phone: [phone]) [phone] statusPatient at Baseline [facility] Work Phone: [phone]) [phone]u StatusN/AExec[facility] of [facility]12-23-2024Functional StatusN/A[facility]10-09-2024Functional status [facility] Work Phone: [phone]) [phone]mc statusPatient at Baseline [facility] Work Phone: [phone]) [phone]rtydesj StatusNoFirelands [facility]05-20-2024Functional StatusNoFirelands Regional Medical Center12-29-2023 Functional StatusN/AExec[facility] 51-20-1735Yfomegnboj StatusN/AFisher [facility] Pr[facility] HospitalOxjtuu60-59-6245Lzywjdczuk StatusN/A[facility]06-21-2023 Functional StatusN/A[facility] Mental Status BydsZqmilxpwczPjvqjxZuoupuru24-11-7291Hmunexezj functionPatient at Baseline [facility] Work Phone: [phone]) [phone] functionCognitive Status Patient at [facility] Work Phone: [phone] functionPatient at Baseline [facility] Work Phone: [phone]) [phone] functionPatient at Baseline [facility] Work Phone: [phone]) [phone] functionPatient at Baseline [facility] Work Phone: Clinical Notes 06-23-2021 to 03-28-2025 Note Date & TashQzplYmebqhay14-45-2992 Miscellaneous Notes* Telephone Encounter - Ashley Colon - 03/28/2025 [...] when he calls back. documented in this encounterUpper [facility] Center10-24-2025 Telephone encounter Note* Telephone Encounter - Ashley Colon - 03/28/2025 [...] appt. Please assist when he calls back. [facility] Cognotion Vqfmkg75-51-9985 Miscellaneous Notes* Telephone Encounter - Augustina Aburto - 03/27/2025 8:50 AM EDT Patient is at [facility] getting his Ct angiogram and his CRF level is below range the tech wanted to no if his test should be rescheduled they can be reached at [phone] [address] [phone]. Please advise * Telephone Encounter - Jess Aguilar CMA - 03/27/2025 8:[address] Montes said ok that he did not get his CTA and that he wanted the prior one from feb to be pushed through to pacs. I called shon back at [place] to ask her to do this and she is going to do this. * Telephone Encounter - Ashley Colon - 03/27/2025 8:50 AM EDT Just spoke with patient's . U/S done at [place], CTA unable to be performed due to kidney function and contrast. documented in this encounterUpper Valley Medical Center10-23-2025 Telephone encounter Note* Telephone Encounter - Augustina Aburto - 03/27/2025 8:50 AM EDT Patient is at [facility] getting his Ct angiogram and his CRF level is below range the tech wanted to no if his test should be rescheduled they can be reached at [phone] Extension [phone]. Please advise [facility]10-23-2025 Telephone encounter Note* Telephone Encounter - Jess Aguilar CMA - 03/27/2025 8:[address] Montes said ok that he did not get his CTA and that he wanted the prior one from feb to be pushed through to pacs. I called shon back at [place] to ask her to do this and she is going to do this. [facility]10-[facility] Telephone encounter Note* Telephone Encounter - Ashley Colon - 03/27/2025 8:50 AM EDT Just spoke with patient's . U/S done at [place], CTA unable to be performed due to kidney function and contrast. [facility]10-09-2025 Miscellaneous Notes* Telephone Encounter - Jess Aguilar CMA - 03/13/2025 1:10 PM EDT Lm for patient to call and get his testing done so that we do not have to cancel his appt on the . documented in this encounterUpper Valley Medical Center10-09-2025 Telephone encounter Note* Telephone Encounter - Jess Aguilar CMA - 03/13/2025 1:10 PM EDT Lm for patient to call and get his testing done so that we do not have to cancel his appt on the . [facility]09-26-2025 Evaluation + Plan note* Assessment & Plan Note - Mike Montes MD - 02/28/2025 5:59 PM EDTAssociated Problem(s): Cigarette smoker Counseled him on smoking cessation for at least 4 minutes [facility]09-26-2025 Miscellaneous Notes* Assessment & Plan [...] and Plavix 75 mg. 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 [facility]09-25-20[facility] History of Present illness Narrative* [...] Critical limb ischemia of right lower extremity ([facility]-HCC) Diabetes mellitus type 2, controlled ([facility]) GERD (gastroesophageal reflux disease) Hyperlipidemia Hypertension Past Surgical History: Past Surgical History: Procedure Laterality Date AMPUTATION FOOT / TOE Right 09/29/2023 APPENDECTOMY BYPASS ARTERY FEMORAL POPLITEAL Right 11/08/2023 Performed by Mike Montes MD at [facility] SPECIAL PROC CARDIAC CATHETERIZATION x4 heart stents COLONOSCOPY PROSTATE SURGERY SPINE SURGERY Vascular Invasive Right lower extremity angiogram with intervention/stent Right 11/07/2023 Performed by Mike Montes MD at [facility] CARDIAC CATH LABS Social and Family History: [...] you for your understanding. documented in this encounterUpper Valley Medical Center09-25-2025 Instructions* Patient Instructions* Mike Montes MD - 02/27/2025 10:50 AM EDT Are You Ready To Kick The Habit? Free Tobacco Cessation Resources [facility] Services [facility] Tobacco Treatment Centers provide all employees with free tobacco cessation services that include: Counseling to understand nicotine addiction Education about medications that can help you successfully quit Assistance with developing a plan to quit Call to set up an individual appointment or find out when group classes will be held: [facility]: [phone] [facility]: [phone] [facility]: [phone] [facility]: [phone] Quit Smoking Action Plan and Resources [facility] offers an eight-week, online smoking cessation plan to all [facility] employees, regardless of whether [place] is your medical insurance provider. Go to [email or web address] and click the Health Risk Assessment and Resources link to get started. In the Pczlk5Puhrsn menu, click Action Plans instead of Health Risk Assessment to access the Quit Smoking Action Plan. Additional smoking cessation resources are also available to all [facility] employees on the Nqboj1Uarutu web page at www.Audience.fm.One Block Off the Grid (1BOG)/quitsmoking. [place] Tobacco Cessation Program If [place] is your medical insurance provider, there are more free resources available to you, including: No copays or deductibles on local tobacco cessation counseling services to help you quit Prescription assistance for tobacco cessation medications to help you quit For details about the tobacco cessation program available to [place] members, go to www.Audience.fm.One Block Off the Grid (1BOG) (Search: Tobacco Cessation Program). [place] Tobacco Quit Line 0-142-HXMR-NOW ( ) is a toll-free, telephonic service that helps [place] residents quit smoking and using tobacco. It is staffed by experts who tailor a quit plan for you and provide you with advice. [place] Tobacco Quit Line 8-526-ZIXY-NOW ( ) is a toll-free, telephonic service that helps [place] residents quit smoking and using tobacco. It is staffed by experts who tailor a quit plan for you and provide you with advice. Two weeks of nicotine replacement therapy may be provided at no charge, if needed. Additional Resources These national organizations also offer free information and resources to help you quit tobacco: [place] [employer]--www.cancer.org/healthy/stayawayfromtobacco [place] [employer]--www.heart.org (Search: Quit Smoking) Centers for Disease Control and Prevention--www.cdc.gov/tobacco [place] [employer] Association--www.lungusa.org documented in this encounterUpper Valley Medical Center07-31-2025 Miscellaneous Notes* Telephone Encounter - Baylee Chu CMA - 01/02/2025 10:59 AM EDT LVM to see if patient can head over now for his appointment documented in this encounterUpper Valley Medical Center07-31-2025 Telephone encounter Note* Telephone Encounter - Baylee Chu CMA - 01/02/2025 10:59 AM EDT LVM to see if patient can head over now for his appointment [facility]06-03-2025 Hospital Discharge instructionsAmbulatory Orders* Referral to Diabetes Management Time Frame: 11/05/24, Location: None Selected [facility] Work Phone: [phone]) 836-483605-08-2025 Consult note Author Pascale Arnold [facility] HospitalNote Date/TimeMay 2024 9:[address] [address] Cardiology Consult Note Signed Patient: Myra Pickard SR MR#: [id number] : 1965 Acct:[id number] Age/Sex: 59 / M Adm Date: 5 Loc: 4 Room: 1X6568-3 Type: ADM INOo Attending Dr: Abdullahi Canchola DO Copies to: DO Pascale Guzman MD, FACC Abdullahi Canchola, ~ Cardiology HPI History of [...] post right below-knee amputation February 2024 in [place]. He has COPD followed by pulmonary medicine in [place]. His EKG showed no acute changes his [...] he gets seen first by his primary product examiner in the office, I emphasized to the [...] mass Atrial fibrillation Atherosclerotic heart disease of [place] coronary artery with unspecified angina pectoris Anxiety Hx of exercise stress test Family history of premature CAD Reports mother had quadruple bypass at age of 45 Myocardial infarction mild Fibromyalgia Chronic back pain Sleep apnea Neuropathy Cataract Peripheral artery disease Hyperlipidemia Diabetes Hypertension Surgical History History of below-knee amputation of right lower extremity 02/2024 [facility] by Dr. Simon Hernández Vascular History of [...] 07/12/23[History Confirmed 10/10/24] flash glucose scanning reader (HemosphereStyle Jigar 2 [place]) #1 ea 12/28/23 [Rx Confirmed 10/10/24] flash [...] 32 gauge x 5/32 (Comfort EZ Pen [place]) #100 ea 04/15/24 [Rx Confirmed 10/10/24] hydroxyzine [...] Lymph # (Auto) 2.0 2.0 (1.00-4.8) x10E3/uL [place] # (Auto) 0.8 0.9 H (0.0-0.8) x10E3/uL [...] RCA, nuclear stress test February 2024 in [place] was normal Plan: Continue aggressive risk factors modifications, tobacco cessation, dual antiplatelet therapy, high intensity statin Code(s): I25.10 - Atherosclerotic heart disease of [place] coronary artery without angina pectoris Documented By: Pascale Arnold MD, [facility] 5 0947 Signed By: <Electronically signed by [facility] Pascale Arnold> 10/11/24 0956 [facility] Work Phone: 1(238) 111-275904-25-2025 NotePatient Education Urology Acute Urinary Retention, Male [...] these instructions at home: Medicines ??? Take coqo-jxn-qlunrrg and prescription medicines only as told by [...] provider. Document Revised: 02/10/2021 Document Reviewed: 02/10/2021 [employer] Patient Education ? 2023 [employer] Education.[facility] 08-30-2024 Hospital Discharge instructionsAmbulatory Orders* Referral to Pain Management Time Frame: 08/30/24, Location: None [facility] Work Phone: 1(248) 971-796203-11-2025 [place] [address] Discharge Summary Signed Patient: Myra Pickard SR MR#: [id number] : 1965 Acct:[id number] Age/Sex: 59 / M Adm Date: 5 Loc: Room: [address] [place] [address]: Kevon Viera MD Copies to: DO Kevon Guzman MD~ Providers Date of Discharge: 08/13/24 Discharging Provider: Kevon Viera Primary Care Provider: eTresa Lynch Consults: 08/11/24 05:40 Consult to Nephrology [...] (DME) pen needle, diabetic [Comfort EZ Pen [place]] 32 gauge x 5/32 needle See Rx [...] Instructions: As directed (DME) FreeStyle Jigar 2 [place] Misc See Rx Instructions .Route Qty: 1 [...] 08/13/24 14 35 Signed By: 08/13/24 1439 [facility]03-11-2025 Progress note Author Maurice Francis [facility] HospitalNote Date/TimeMarch 2024 11:06[place] [id number] Nephrology Progress Note Signed Patient: Myra Pickard SR MR#: [id number] : 1965 Acct:[id number] Age/Sex: 59 / M Adm Date: 5 Loc: Room: [address] [place] [address] Type: ADM IN Attending Dr: Kevon Viera [...] Skin: No rashes , warm to touch [employer] WORK[employer]: Awake,Alert, 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 Musculoskeletal: No swelling [...] [facility] Stop: 08/11/25 21:59 Last Admin: 08/12/24 21:48 Dose: 25 mg Aspirin (Aspirin 81 Mg Tablet.Dr) 81 mg PO DAILY [facility] [...] [facility]ITAL Stop: 08/17/24 09:01 Last Admin: 08/13/24 [...] Admin: 08/13/24 08:25 Dose: 1 units Ipratropium [place] (Ipratropium [place] 0.5 Mg/2.5 Ml Vial.Neb) 0.5 mg INHALATION [...] weeks Documented By: Maurice Francis MD 08/13/24 2244 Signed By: <Electronically signed by Maurice Francis MD> 08/13/24 5986 [facility] Work Phone: 1(155) [phone] [place] [address] Nephrology Progress Note Signed Patient: PickardMyra Daniel SR MR#: [id number] : 1965 Acct:[id number] Age/Sex: 59 / M Adm Date: 5 Loc: 3T Room: [address] [place] [address] Type: ADM IN Attending Dr: Kevon Viera [...] Skin: No rashes , warm to touch [employer]: Awake,Alert, 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 Musculoskeletal: No swelling [...] [facility] Stop: 08/11/25 21:59 Last Admin: 08/12/24 [...] 75 Mg Tablet) 75 mg PO DAILY [facility] Stop: 08/11/25 08:59 Last Admin: 08/13/24 08:25 Dose: 75 mg Cyanocobalamin (Cyanocobalamin 1,000 Mcg/Ml Vial) 1,000 mcg IM DAILY [facility] Stop: 08/17/24 09:01 Last Admin: 08/13/24 [...] Aspart 300 Units/3 Ml) 0 units SUBCUT TID.[facility]; Protocol Stop: 08/11/25 07:59 Last Admin: 08/13/24 08:25 Dose: 1 units Ipratropium Anahola (Ipratropium Anahola 0.5 Mg/2.5 Ml Vial.Neb) 0.5 mg INHALATION [...] MD 08/13/24 0855 Signed By: 08/13/24 1106 [facility]03-10-2025 Progress note Author Kevon Viera [facility] HospitalNote Date/TimeMarch 2024 3:16[place] [address] Hospitalist Progress Note Signed Patient: Myra Pickard SR MR#: [id number] : 1965 Acct:[id number] Age/Sex: 59 / M Adm Date: 5 Loc: 3T Room: [address] [place] [address] Type: ADM IN Attending Dr: Kevon Viera [...] Tablet PO 08/11/25 21:59 25 mg HS SATIHS Administration Aspirin 81 mg 08/11/24 09:00 08/12/24 [...] 1 units TID.WM.[facility] SATISH Administration Protocol Ipratropium Anahola 0.5 mg 08/11/24 08:00 08/12/24 12:31 Ipratropium Anahola 0.5 Mg/2.5 Ml Vial.Neb INHALATION 08/11/25 07:59 [...] <Electronically signed by Kevon Viera MD> 08/12/[address] [place] [address] Work Phone: [phone]) 822-997503-10-2025 [place] [address] Hospitalist Progress Note Signed Patient: Myra Pickard MR#: [id number] : 1965 Acct:[id number] Age/Sex: 59 / M Adm Date: 5 Loc: Room: [address] [place] [address] Type: ADM IN Attending Dr: Kevon Viera [...] 1 units TID.WM.[facility] SATISH Administration Protocol Ipratropium Anahola 0.5 mg 08/11/24 08:00 08/12/24 12:31 Ipratropium [place]ahola 0.5 Mg/2.5 Ml Vial.Neb INHALATION 08/11/25 07:59 [...] MD 08/12/24 15 12 Signed By: 08/12/[address] [place], [place] 7494403-10-2025 Progress note Author Maurice Francis [facility]Note Date/TimeMarch 2024 11:47[place] [address] Nephrology Progress Note Signed Patient: Myra Pickard SR MR#: [id number] : 1965 Acct:[id number] Age/Sex: 59 / M Adm Date: 5 Loc: Room: [address] [place] [address] Type: ADM IN Attending Dr: Kevon Viera [...] Skin: No rashes , warm to touch [employer]: Awake,Alert, 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 Musculoskeletal: No swelling [...] Aspart 300 Units/3 Ml) 0 units SUBCUT TID.[facility]; Protocol Stop: 08/11/25 07:59 Last Admin: 08/12/24 08:27 Dose: Not Given Ipratropium Anahola (Ipratropium Anahola 0.5 Mg/2.5 Ml Vial.Neb) 0.5 mg INHALATION [...] [facility] Stop: 02/07/25 08:59 Last Admin: 08/12/24 08:27 Dose: 75 mg Ropinirole HCl (Ropinirole 1 Mg Tablet) 1 mg PO TID [facility] Stop: 08/11/25 08:59 Last Admin: 03/10/25 08:27 Dose: 1 mg Tamsulosin HCl (Tamsulosin [...] <Electronically signed by Maurice Francis MD> 08/12/24 114 [facility] Work Phone: [phone]) [phone] [place] [address] Nephrology Progress Note Signed Patient: Myra Pickard MR#: [id number] : 1965 Acct:[id number] Age/Sex: 59 / M Adm Date: 5 Loc: 3T Room: [address] [place] [address] Type: ADM IN Attending Dr: Kevon Viera [...] Skin: No rashes , warm to touch [employer]ER: Awake,Alert, 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 Musculoskeletal: No swelling [...] Admin: 08/12/24 08:27 Dose: Not Given Ipratropium Anahola (Ipratropium Anahola 0.5 Mg/2.5 Ml Vial.Neb) 0.5 mg INHALATION [...] [facility] Stop: 02/07/25 08:59 Last Admin: 08/12/24 [...] MD 08/12/24 1115 Signed By: 08/12/24 1147 [facility]03-09-2025 Consult note Author Amina Fagan [facility]Note Date/TimeMarch 2024 2:18[place] [address] Nephrology Consult Note Signed Patient: Myra Pickard SR MR#: [id number] : 1965 Acct:[id number] Age/Sex: 59 / M Adm Date: 5 Loc: Room: [address] [place] [address] Type: ADM IN Attending Dr: Kevon Viera [...] mass Atrial fibrillation Atherosclerotic heart disease of [place] coronary artery with unspecified angina pectoris Anxiety Hx of exercise stress test Family history of premature CAD Reports mother had quadruple bypass at age of 45 Myocardial infarction mild Fibromyalgia Chronic back pain Sleep apnea Neuropathy Cataract Peripheral artery disease Hyperlipidemia Diabetes Hypertension Surgical History History of below-knee amputation of right lower extremity 02/2024 [facility] by Dr. Simon Hernández Vascular History of [...] 07/12/23[History Confirmed 08/11/24] flash glucose scanning reader (HemosphereStyle Jigar 2 [place]) #1 ea 12/28/23 [Rx Confirmed 08/11/24] flash [...] 32 gauge x 5/32 (Comfort EZ Pen [place]) #100 ea 04/15/24 [Rx Confirmed 08/11/24] hydroxyzine [...] (Amitriptyline 25 Mg Tablet) 25 mg PO [facility] Stop: 08/11/25 21:59 Aspirin (Aspirin 81 [...] Admin: 08/11/24 13:40 Dose: Not Given Ipratropium Anahola (Ipratropium Anahola 0.5 Mg/2.5 Ml Vial.Neb) 0.5 mg INHALATION [...] Appearance Clear Urine pH 5.5 Ur Specific Perry 1.024 Urine Protein Negative Urine Glucose (UA) 500 H Urine Ketones Negative Urine Occult Blood Negative Urine Nitrite Negative Ur Leukocyte Esterase Negative Radiology Impressions Impressions - last 24 hours: Impressions Chest X-Ray 08/11/24 04:22 IMPRESSION: No acute process. Impression dictated by: Sudeep Lind M.D.08/11/2024 10:06 AM Dictation Location: [place] [address] 08/11/24 04:22 IMPRESSION: No acute [...] M.D.08/11/2024 10:06 AM Dictation Location: [place] [address] Any impression(s) listed above is documentation that [...] concern Documented By: Amina Fagan MD 08/11/24 6328 Signed By: <Electronically signed by Amina Fagan MD> 08/11/24 6508 [facility] Work Phone: [phone]) [phone] Progress note Author Kevon Viera [facility] Date/TimeMarch 2024 1:[place] [id number] Progress Note Signed Patient: Myra Pickard SR MR#: [id number] : 1965 Acct:[id number] Age/Sex: 59 / M Adm Date: 5 Loc: 3T Room: [address] [place] [address] Type: ADM IN Attending Dr: Kevon Viera [...] <Electronically signed by Kevon Viera MD> 08/11/[address] [place] [address] Work Phone: [phone]) [phone] Consult [place] [id number] Nephrology Consult Note Signed Patient: Myra Pickard SR MR#: [id number] : 1965 Acct:[id number] Age/Sex: 59 / M Adm Date: 5 Loc: 3T Room: [address] [place] [address] Type: ADM IN Attending Dr: Kevon Viera [...] mass Atrial fibrillation Atherosclerotic heart disease of [place] coronary artery with unspecified angina pectoris Anxiety Hx of exercise stress test Family history of premature CAD Reports mother had quadruple bypass at age of 45 Myocardial infarction mild Fibromyalgia Chronic back pain Sleep apnea Neuropathy Cataract Peripheral artery disease Hyperlipidemia Diabetes Hypertension Surgical History History of below-knee amputation of right lower extremity 02/2024 [facility] by Dr. Simon Hernández Vascular History of [...] 07/12/23[History Confirmed 08/11/24] flash glucose scanning reader (FreeStyle Jigar 2 [place]) #1 ea 12/28/23 [Rx Confirmed 08/11/24] flash [...] 32 gauge x 5/32 (Comfort EZ Pen [place]) #100 ea 04/15/24 [Rx Confirmed 08/11/24] hydroxyzine [...] 75 Mg Tablet) 75 mg PO DAILY [facility] Stop: [...] Admin: 08/11/24 13:40 Dose: Not Given Ipratropium Anahola (Ipratropium Anahola 0.5 Mg/2.5 Ml Vial.Neb) 0.5 mg INHALATION [...] Appearance Clear Urine pH 5.5 Ur Specific Perry 1.024 Urine Protein Negative Urine Glucose (UA) 500 H Urine Ketones Negative Urine Occult Blood Negative Urine Nitrite Negative Ur Leukocyte Esterase Negative Radiology Impressions Impressions - last 24 hours: Impressions Chest X-Ray 08/11/24 04:22 IMPRESSION: No acute process. Impression dictated by: Sudeep Lind M.D.08/11/2024 10:06 AM Dictation Location: [facility] [address] Head CT 08/11/24 04:22 IMPRESSION: No acute [...] M.D.08/11/2024 10:06 AM Dictation Location: [place] [address] Any impression(s) listed above is documentation that [...] MD 08/11/24 1405 Signed By: 08/11/24 1418 [facility]03-09-2025 [place] [address] Progress Note Signed Patient: Myra Pickard SR MR#: [id number] : 1965 Acct:[id number] Age/Sex: 59 / M Adm Date: 5 Loc: 3T Room: [address] [place] [address] Type: ADM IN Attending Dr: Kevon Viera [...] 08/11/24 13 20 Signed By: 08/11/24 1321 [facility]03-09-2025 Radiology Diagnostic study note [facility] [place] [address] [place] [address] CT Scan Report Signed Patient: Myra Pickard SR MR#: [id number] : 1965 Acct:[id number] Age/Sex: 59 / M ADM Date: 5 Loc: 3T Room: [address] [place] [address] Type: ADM IN Attending Dr: Kevon Viera MD Copies to: MD Francisco Urbina Jr, MD~ Ordering Provider: Francisco Duncan Jr, MD Date of Service: 08/11/24 CT/CT head stroke alert wo con: acute stroke/neuro deficits ([id number]) CT/CT angio neck: L side numb ([id number]) CT/CT angio head: L side numb Unenhanced [...] M.D.08/11/2024 10:06 AM Dictation Location: [place] [address] Transcribed By: [facility] 08/11/24 1006 Dictated By: Sudeep Lind DO 08/11/24 1000 Signed By: 08/11/24 1006 [facility]03-09-2025 History and physical note Author Marge Andino [facility]Note Date/TimeMarch 2024 7:24[place] [address] Hospitalist H&P Signed Patient: Myra Pickard SR MR#: [id number] : 1965 Acct:[id number] Age/Sex: 59 / M Adm Date: 5 Loc: 3T Room: [address] [place] [address] Type: ADM IN Attending Dr: Kevon Viera [...] mass Atrial fibrillation Atherosclerotic heart disease of [place] coronary artery with unspecified angina pectoris Anxiety Hx of exercise stress test Family history of premature CAD Reports mother had quadruple bypass at age of 45 Myocardial infarction mild Fibromyalgia Chronic back pain Sleep apnea Neuropathy Cataract Peripheral artery disease Hyperlipidemia Diabetes Hypertension Surgical History History of below-knee amputation of right lower extremity 02/2024 [facility] by Dr. Simon Hernández Vascular History of [...] 07/12/23[History Confirmed 08/11/24] flash glucose scanning reader (Amakem Jigar 2 [place]) #1 ea 12/28/23 [Rx Confirmed 08/11/24] flash glucose sensor (HemosphereStyle Jigar 2 Sensor kit) #1 ea 12/28/23 [...] 32 gauge x 5/32 (Comfort EZ Pen [place]) #100 ea 04/15/24 [Rx Confirmed 08/11/24] hydroxyzine [...] 04:15 Lymph % (Auto) N/A 08/11/24 04:15 [place] % (Auto) N/A 08/11/24 04:15 Eos % (Auto) N/A 08/11/24 04:15 Baso % (Auto) N/A 08/11/24 04:15 Nucleat RBC Rel Count N/A 08/11/24 04:15 Neut # (Auto) N/A 08/11/24 04:15 Lymph # (Auto) N/A 08/11/24 04:15 [place] # (Auto) N/A 08/11/24 04:15 Eos # [...] <Electronically signed by Marge Andino MD> 08/11/24 1453 [facility] Work Phone: 1(295) [phone] Evaluation note* Diagnosis Onset Date Resolution Status Admit Date Acute kidney injury superimposed on CKD acuteMarch 2024 5:39amBPH loc w urin obs/LUTSacuteMarch 2024 5:39am DiabetesacuteAugust 11, 2024 5:39amHypocalcemiaacuteAugch 2024 5:39am HypokalemiaacuteMarch 2024 5:39amHypomagnesemiaacuteAugch 2024 5:39am Iron deficiencyacuteMarch 2024 5:39amLeft sided numbnessacuteMarch 2024 5:39amParesthesiasacuteMarch 2024 5:39amVitamin B12 deficiencyacute August 11, 2024 5:39amHypertensionchronicMarch 2024 5:39am [facility] Work Phone: [phone]) 109-228303-09-2025 Evaluation note* Diagnosis Onset Date Resolution Status Admit Date Hypocalcemia acuteMarch 2024 5:39amHypokalemiaacuteMarch 2024 5:39amHypomagnesemia acuteMarch 2024 5:39amAcute kidney injury superimposed on CKDinactiveMarch 2024 5:39amBPH loc w urin obs/LUTSinactiveMarch 2024 5:39amDiabetes inactiveMarch 2024 5:39amHypertensioninactiveMarch 2024 5:39amIron deficiencyinactiveMarch 2024 5:39amLeft sided numbnessinactiveMarch 2024 5:39amParesthesiasinactiveMarch 2024 5:39amVitamin B12 deficiency inactiveMarch 2024 5:39amAnemia of renal diseaseacuteMarch 2024 8:37amChronic kidney disease, stage 3bacuteMar 2024 8:37amDiabetic nephropathy associated with type 2 diabetes mellitusacuteMar 2024 8:37am [facility] 8:37amHypokalemiaacute[facility] 2024 8:37am Hypomagnesemiaacute[facility] 2024 8:37amNeuropathyacute[facility] 2024 8:37am Non compliance w medication regimenacute[facility] 2024 8:37am [facility] Work Phone: [phone]) 201-887403-09-2025 Evaluation note* Diagnosis Onset Date Resolution Status Admit Date [facility] 5:39amHypokalemiaacuteMarch 2024 5:39amHypomagnesemia acuteNew[facility] 2024 5:39amAcute kidney injury superimposed on CKDinactiveMarch 2024 5:39amBPH loc w urin obs/LUTSinactiveMarch 2024 5:39amDiabetes inactiveMarch 2024 5:39amHypertensioninactiveMarch 2024 5:39amIron deficiencyinactiveMarch 2024 5:39amLeft sided numbnessinactiveMarch 2024 5:39amParesthesiasinactiveMarch 2024 5:39amVitamin B12 deficiency inactiveNew[facility] 2024 5:39amAnemia of renal diseaseacuteMarch 2024 8:37amChronic kidney disease, stage 3bacuteMar2024 8:37amDiabetic nephropathy associated with type 2 diabetes mellitusacuteMar2024 8:37am HypocalcemiaacuteMar2024 8:37amHypokalemiaacuteMar2024 8:37am HypomagnesemiaacuteMar2024 8:37amNeuropathyacuteMar2024 8:37am Non compliance w medication regimenacuteAugust 30, 2024 8:37amChest painacute October 10, 2024 6:25pm [facility] Work Phone: 1(475) 435-769403-09-2025 Evaluation note* Diagnosis Onset Date Resolution Status Admit Date [facility]20[facility] 5:39amHypokalemiaacute[facility]2024 5:39amHypomagnesemia [facility]New[facility]2024 5:39amAcute kidney injury superimposed on CKDinactive[facility] 2024 5:39amBPH loc w urin obs/LUTSinactiveEast [facility] 2024 5:39amDiabetes inactiveNew[facility] 2024 5:39amHypertensioninactive[facility] 2024 5:39amIron deficiencyinactive[facility] 2024 5:39amLeft sided numbnessinactive[facility] 2024 5:39amParesthesiasinactive[facility] 2024 5:39amVitamin B12 deficiency inactiveNew[facility] 20[facility] 5:39amAnemia of renal diseaseacuteMar2024 8:37amChronic kidney disease, stage 3bacuteAugust 30, 2024 8:37amDiabetic nephropathy associated with type 2 diabetes mellitusacuteMar2024 8:37am Hypocalcemiaacute[facility]2024 8:37amHypokalemiaacute[facility]2024 8:37am Hypomagnesemiaacute[facility]2024 8:37amNeuropathyacute[facility]20[facility] 8:37am Non compliance w medication regimenacuteMarch 2024 8:37amCAD (coronary artery disease)inactiveMay 2024 6:25pmChronic kidney diseaseinactiveMay 2024 6:25pmChronic obstructive pulmonary disease, unspecifiedinactiveMay 2024 6:25pmHistory of below-knee amputation of right lower extremity inactiveMay 2024 6:25pmHyperlipidemiainactiveMay 2024 6:25pmChest pain deletedMa2024 6:25pm [facility] Work Phone: [phone]) [phone] Evaluation note* Diagnosis Onset Date Resolution Status [...] associated with type 2 diabetes mellitusacuteMarch 2024 8:37amHypocalcemia acuteMarch 2024 8:37amHypokalemiaacuteMarch 2024 8:37am HypomagnesemiaacuteMarch 2024 8:37amNeuropathyacuteMarch 2024 8:37am Non compliance w medication regimenacuteMarch 2024 8:37amCAD (coronary artery disease)acuteMay 8th, 2025 6:25pmHistory of below-knee amputation of right lower extremityacuteMay 2024 6:25pmChronic kidney diseaseinactiveMay 2024 6:25pmChronic obstructive pulmonary disease, unspecifiedinactiveMay 2024 6:25pmHyperlipidemiainactiveMay 2024 6:25pmChest paindeletedMay 2024 6:25pmAnemia of renal diseaseacuteNovember 05, 2024 1:08pmCAD (coronary artery disease)acuteJun2024 1:08pmCigarette nicotine dependence with nicotine-induced disorderacuteNovember 05, 2024 1:08pmDiabetic nephropathy associated with type 2 diabetes mellitusacuteNovember 05, 2024 1:08pmHistory of below-knee amputation of right lower extremityacuteNovember 05, 2024 1:08pm HypocalcemiaacuteJun2024 1:08pmVitamin D deficiencyacuteNovember 05, 2024 1:08pmAnemia of renal diseaseacuteNovember 05, 2024 4:13pmBMI 34.0-34.9,adultacute November 05, 2024 4:13pmChronic kidney disease, stage 3bacuteNovember 05, 2024 4:13pm Diabetic nephropathy associated with type 2 diabetes mellitusacuteNovember 05, 2024 4:13pmGoutacuteJune 2024 4:13pmHypertensive nephropathyacuteNovember 05, 2024 4:13pmHypomagnesemiaacuteNovember 05, 2024 4:13pmIron deficiencyacuteNovember 05, 2024 4:13pmVitamin D deficiency2024 4:13pmBPH loc w urin obs/LUTS inactiveJun2024 4:13pm [facility] Work Phone: [phone]) [phone] Evaluation note* Diagnosis Onset Date Resolution Status Admit Date Hypocalcemia acuteMarch 2024 5:39amHypokalemiaacuteMarch 2024 5:39amHypomagnesemia acuteMarch 2024 5:39amAcute kidney injury superimposed on CKDinactiveMarch 2024 5:39amBPH loc w urin obs/LUTSinactiveMarch 2024 5:39amDiabetes inactiveMarch 2024 5:39amHypertensioninactiveMarch 2024 5:39amIron deficiencyinactiveMarch 2024 5:39amLeft sided numbnessinactive[facility] 2024 5:39amParesthesiasinactiveMarch 2024 5:39amVitamin B12 deficiency inactiveMarch 2024 5:39amAnemia of renal diseaseacuteNew[facility] 2024 8:37amChronic kidney disease, stage 3bacuteMar 2024 8:37amDiabetic nephropathy associated with type 2 diabetes mellitusacute[facility] 2024 8:37am Hypocalcemiaacute[facility] 2024 8:37amHypokalemiaacute[facility] 2024 8:37am Hypomagnesemiaacute[facility] 2024 8:37amNeuropathyacute[facility] 2024 8:37am Non compliance w medication regimenacute[facility] 2024 8:37amCAD (coronary artery disease)acuteNey 2024 6:25pmHistory of below-knee amputation of right lower extremityacuteNey 2024 6:25pmChronic kidney diseaseinactiveNey 2024 6:25pmChronic obstructive pulmonary disease, unspecifiedinactiveMay 2024 6:25pmHyperlipidemiainactiveMay 2024 6:25pmChest paindeletedMay 2024 6:25pmAnemia of renal diseaseacuteSelect [facility] 20[facility] 1:08pmCAD (coronary artery disease)acute[facility] 20[facility] 1:08pmCigarette nicotine dependence with nicotine-induced disorderacute[facility] 1:08pmDiabetic nephropathy associated with type 2 diabetes mellitusacuteSelect [facility] 20[facility] 1:08pmHistory of below-knee amputation of right lower extremityacute[facility] 1:08pm HypocalcemiaacuteSelect [facility] 2024 1:08pmVitamin D deficiencyacuteSelect Specialty Hospital [facility] 2024 1:08pm [facility] Work Phone: [phone] History and physical [address] [place] [address] Hospitalist H&P Signed Patient: Myra Pickard SR MR#: [id number] : 1965 Acct:[id number] Age/Sex: 59 / M Adm Date: 5 Loc: 3T Room: [address] [place] [address] Type: ADM IN Attending Dr: Kevon Viera [...] mass Atrial fibrillation Atherosclerotic heart disease of [place] coronary artery with unspecified angina pectoris Anxiety Hx of exercise stress test Family history of premature CAD Reports mother had quadruple bypass at age of 45 Myocardial infarction mild Fibromyalgia Chronic back pain Sleep apnea Neuropathy Cataract Peripheral artery disease Hyperlipidemia Diabetes Hypertension Surgical History History of below-knee amputation of right lower extremity 02/2024 [facility] by Dr. Simon Hernández Vascular History of [...] 07/12/23[History Confirmed 08/11/24] flash glucose scanning reader (FreeStyle Jigar 2 [place]) #1 ea 12/28/23 [Rx Confirmed 08/11/24] flash [...] 32 gauge x 5/32 (Comfort EZ Pen [place]) #100 ea 04/15/24 [Rx Confirmed 08/11/24] hydroxyzine [...] 04:15 Lymph % (Auto) N/A 08/11/24 04:15 [place] % (Auto) N/A 08/11/24 04:15 Eos % (Auto) N/A 08/11/24 04:15 Baso % (Auto) N/A 08/11/24 04:15 Nucleat RBC Rel Count N/A 08/11/24 04:15 Neut # (Auto) N/A 08/11/24 04:15 Lymph # (Auto) N/A 08/11/24 04:15 [place] # (Auto) N/A 08/11/24 04:15 Eos # [...] Marge Andino MD 08/11/24 0717 Signed By: 08/11/24 0724 [facility]03-04-2025 NotePatient Education Urology Orchitis Orchitis is [...] by your health care provider. ??? Take rihw-qhy-vnmhgcc and prescription medicines only as told by [...] medicines to fight th (more content not included)...[facility]12-23-2024 Hospital Discharge instructions Patient Education [...] urethra. Follow these instructions at home: Take qmuf-etg-cgoqtfa and prescription medicines only as told by [...] provider. Document Revised: 12/08/2021 Document Reviewed: 12/08/2021 [employer] Patient Education 2023 [employer] Education. Follow Up Care 04/01/2024 10:56:08 With:SOLEDAD HERRERA, Yeyo Blum, URL Address: [facility] [address] [place] [address] [phone] When: Unknown [facility] 12-23-2024 NotePatient Education Urology Benign Prostatic [...] Follow these instructions at home: ??? Take hzta-mtm-ynksqao and prescription medicines only as told by [...] symptoms do not get (more content not included)...[facility]12-23-2024 Evaluation + Plan note Diagnostic Tests Pending * PSA Total 05/27/24 Future Scheduled Tests Radiology* US PVR Lower EXT Complete Bilat 11/20/23 [facility] 12-03-2024 Evaluation note* Diagnosis Onset Date Resolution Status Admit Date Anemia of renal disease acuteDecember 2023 4:21pmBMI 34.0-34.9,adultacuteDecember 2023 4:21pm BPH loc w urin obs/LUTSacuteDecember 2023 4:21pmChronic kidney disease, stage 3bacutecemb2023 4:21pmDiabetic nephropathy associated with type 2 diabetes mellitusacuteMay 07, 2024 4:21pmGoutacuteDecember 2023 4:21pmHypertensive nephropathyacuteMay 07, 2024 4:21pmHypomagnesemiaacute May 07, 2024 4:21pm [facility] Work Phone: 1(421) 382-957311-19-2024 [place] [address] EGD Procedure Note Signed Patient: Myra Pickard SR MR#: [id number] : 1965 Acct:[id number] Age/Sex: 58 / M Adm Date: 4 Loc: Room: Type: [facility] Attending Dr: Mike Burleson MD Copies to: [...] MD Documented By: Mike Burleson MD 04/23/24 8316 Signed By: 04/23/24 1358 [facility]11-19-2024 [place] [address] Gastroenterology H&P Signed Patient: Myra Pickard SR MR#: [id number] : 1965 Acct:[id number] Age/Sex: 58 / M Adm Date: 4 Loc: Room: Type: [facility] Attending Dr: Mike Burleson MD Copies to: [...] MD 04/23/24 1349 Signed By: 04/23/24 1350 [facility]11-01-2024 Evaluation note* Author Cat Byrd [facility] HospitalAuthoredNovember 2023 1:29pmSooner if needed, the ER if concerns,The above note written by Cat Byrd LPN acting as human recorder, note dictated by Dr. Teresa Lynch [facility] Work Phone: 1(253) 368-179910-18-2024 Miscellaneous Notes* Telephone Encounter - Moncho Stevenson - 03/22/2024 11:24 PM EDT Contract: 198 - Re: high Blood Sugars . Called Dr. Tam and connected to caller documented in this encounterUpper [facility] Center10-18-[facility]24 Telephone encounter Note* Telephone Encounter - Moncho Stevenson - 03/22/2024 11:24 PM EDT Contract: 198 - Re: high Blood Sugars . Called Dr. Tam and connected to caller [facility]10[facility] History of Present illness Narrative* Guero Tam, DO - 03/19/2024 5:25 PM EDT Patient Name: Myra Pickard Date of : 1965 Date of Service: 03/19/2024 Facility: [facility] Type of Visit: Skilled Visit Subjective Myra [...] associated with type 2 diabetes mellitus (CMS-HCC) 2. Encounter for orthopedic aftercare following surgical [...] BY: Guero Tam DO documented in this encounterLancaster Municipal HospitalFanchimp [facility]cl[facility] [id number] History of Present illness Narrative* Guero Tam DO - 03/15/2024 6:27 PM EDT Patient Name: Myra Pickard Date of : 1965 Date of Service: 03/15/2024 Facility: [facility] Type of Visit: Admission H&P Subjective Myra Pickard is a 58 y.o. male seen today at [facility] facility for admission for therapies. Myra returns to [facility] from [facility] where he was admitted for altered [...] polyneuropathy associated with type 2 diabetes mellitus ([facility]) 2. Disorientation 3. Other abnormalities of gait and mobility 4. [place] [place] 5. Atherosclerosis of [place] coronary artery of [place] heart without angina pectoris 6. Atrial fibrillation ([facility]) 7. Primary hypertension Admit to [facility] for therapies. Plan to do therapy and then go home in a few weeks. Continue current regimen. Full code. Good rehab potential. ELECTRONICALLY SIGNED BY: Guero Tam DO documented in this encounterUpper Valley Medical Center10-11-2024 Miscellaneous Notes* Telephone Encounter - Nancy Kim CMA - 03/15/2024 10:10 AM EDT Patients spouse called in to question about getting a bindery machine setter sock. Stated patient is currently [facility] a care facility. Please advise and call spouse. documented in this encounterUpper Valley [facility] Center10-11-2024 Telephone encounter Note* Telephone Encounter - Nancy Kim CMA - 03/15/2024 10:10 AM EDT Patients spouse called in to question about getting a bindery machine setter sock. Stated patient is currently isin a care facility. Please advise and call spouse. [facility]10-[facility] Discharge summary Author Remberto Ervin [facility] March 13, 2024 9:46amNote Date/TimeOct2023 9:46[place] [address] Discharge Summary Signed Patient: Myra Pickard SR MR#: [id number] : 1965 Acct:[id number] Age/Sex: 58 / M Adm Date: 4 Loc: Room: 1V7041-[address]: Remberto Ervin MD Copies to: [...] colleague in collaboration with other specialists and user support specialist. Patient came in with a [...] ask her primary care doctor to obtain [facility] record entirely to address abnormalities seen on labs and imagingthat I have and have not addressed during this hospitalization, follow-up on pending blood work, imaging and pathology is if available and to follow-up on needed medical care in the outpatient setting. Time Spent with Patient Time spent providing/coordinating discharge services (# min): 45 Discharge Plan Discharge Plan Patient Disposition: Residential Facility Activity: No Activity Restriction Additional Instructions: I may not have addressed or treated all of your medical illnesses or the abnormal blood work or imaging studies during this hospitalization. Please ask your primary care provider to obtain [facility] records entirely to follow up on all of the abnormal physical, laboratory, and imaging findings thatI have not addressed. Please return back to the emergency room or seek medical attention if your symptoms worsen or return. Discharging you from [facility] does not mean that your medical [...] Instructions: As directed (DME) FreeStyle Jigar 2 [place]eter Misc See Rx Instructions .ROUTE Qty: 1 [...] 16:02 Blood Culture Stat 03/10/24 06:49 NMDA [Z-ahxggs-E-Aspartate IgG, Ser] IN AM Preliminary micro results [...] % (Auto) 66.7, Lymph % (Auto) 14.7, Coosa % (Auto) 14.4, Eos % (Auto) 3.0, Baso % (Auto) 1.2, Nucleat RBC Rel Count 0.1, Neut #(Auto) 4.0, Lymph # (Auto) 0.9 L, [place]osa # (Auto) 0.9 H, Eos # (Auto) [...] Glucose 230 Documented By: Remberto Ervin MD 03/13/24942 Signed By: <Electronically signed by Remberto Ervin MD> 03/13/24945 [facility] Work Phone: 1([phone]) 841-859810-08-2024 Progress note Author João Powell [facility] March 12, 2024 1:46pmNote Date/TimeOctober 2023 1:34pm[place] [address] Hospitalist Progress Note Signed Patient: Myra Pickard SR MR#: [id number] : 1965 Acct:[id number] Age/Sex: 58 / M Adm Date: 4 Loc: 3T Room: [address] [place] [address] Type: ADM IN Attending Dr: João Powell [...] PRN Administration Hypomagnesemia Insulin Aspart 0 units 10/06/24 12:00 03/12/24 11:18 Insulin Aspart 300 Units/3 Ml Insuln.Pen SUBCUT 03/10/25 11:59 2 units TID.WM.HS SATISH Administration Protocol Ipratropium Anahola 0.5 mg 03/08/24 20:00 03/12/24 09:34 Ipratropium Anahola 0.5 Mg/2.5 Ml Vial.Neb INHALATION 03/08/25 19:59 [...] Spent With Patient (min): 45 Documented By: Jooã Powell MD 03/12/24 1331 Signed By: <Electronically signed by João Powell MD> 03/12/24 1346 [facility] Work Phone: 1([phone] 652-113910-08-2024 Progress note Author Mike Burleson [facility] March 12, 2024 9:28amNote Date/TimeOct2023 9:28[place] [id number] Gastroenterology PN Signed Patient: Myra Pickard SR MR#: [id number] : 1965 Acct:[id number] Age/Sex: 58 / M Adm Date: 4 Loc: 3T Room: [address] [place] [address] Type: ADM IN Attending Dr: João Powell [...] 1 units TID.WM.HS SATISH Administration Protocol Ipratropium Anahola 0.5 mg 03/08/24 20:00 03/12/24 06:05 Ipratropium Anahola 0.5 Mg/2.5 Ml Vial.Neb INHALATION 03/08/25 19:59 [...] <Electronically signed by Mike Burleson MD> 03/12/24927 [facility] Work Phone: 1(139) 651-986510-07-2024 Progress note Author João Powell [facility] March 11, 2024 1:38pmNote Date/TimeOct2023 1:35pm[place] [address] Hospitalist Progress Note Signed Patient: Myra Pickard SR MR#: [id number] : 1965 Acct:[id number] Age/Sex: 58 / M Adm Date: 4 Loc: Room: [address] [place] [address] Type: ADM IN Attending Dr: João Powell [...] 18 150/89 H 99 Room Air 03/11/24 12:03/11/24 12:03/11/24 12:00 03/11/24 12:00 03/11/24 12:00 03/11/24 12:00 [...] 11:59 Not Given TID.WM.HS SATISH Protocol Ipratropium Anahola 0.5 mg 03/08/24 20:00 03/11/24 10:15 Ipratropium Anahola 0.5 Mg/2.5 Ml Vial.Neb INHALATION 03/08/25 19:59 [...] obtain MRI abdomen and MRCP -PT tete garvey appreciated Spoke to his at bedside last afternoon. Will update family today. Time Spent With Patient (min): 45 Documented By: João Powell MD 03/11/241333 Signed By: <Electronically signed by João Powell MD> 03/11/241337 [facility] Work Phone: 1(701) 334-299010-06-2024 Progress note Author Luther Dozier [facility] March 10, 2024 11:31amNote Date/TimeOct2023 11:31am[place] [address] Neurology Progress Note Signed Patient: Myra Pickard SR MR#: [id number] : 1965 Acct:[id number] Age/Sex: 58 / M Adm Date: 4 Loc: Room: [address] [place] [address] Type: ADM IN Attending Dr: João Powell [...] Therapy Recommendations: PT Recommendations PT Recommended Discharge Residential Facility,Inpatient Rehab Unit Location PT Recommended Services [...] of breathing. He is alert. Oriented to [facility], March. Speech is fluent and nondysarthric. [...] signed by Luther Dozier DO> 03/10/24 1131 [facility] Work Phone: 1([phone] Consult note Author Mike Burleson [facility] March 10, 2024 11:29amNote Date/TimeOct2023 11:29[place] [address] Gastroenterology Consult Note Signed Patient: Myra Pickard SR MR#: [id number] : 1965 Acct:[id number] Age/Sex: 58 / M Adm Date: 4 Loc: Room: [address] [place] [address] Type: ADM IN Attending Dr: João Powell [...] mass Atrial fibrillation Atherosclerotic heart disease of [place] coronary artery with unspecified angina pectoris Anxiety [...] Type: None Social History Comments: at [facility] Meds Medications and Allergies [...] [History Confirmed 03/08/24] flash glucose scanning reader (HemosphereStyle Jigar 2 [place]) #1 ea 12/28/23 [Rx Confirmed 03/08/24] flash [...] % (Auto) 83.4 Lymph % (Auto) 4.9 Coosa % (Auto) 10.6 Eos % (Auto) 0.8 Baso % (Auto) 0.3 Nucleat RBC Rel Count 0.2 Neut # (Auto) 11.4 H Lymph # (Auto) 0.7 L [place] # (Auto) 1.5 H Eos # (Auto) [...] MPV Neut % (Auto) Lymph % (Auto) [place] % (Auto) Eos % (Auto) Baso % (Auto) Nucleat RBC Rel Count Neut # (Auto) Lymph # (Auto) Coosa # (Auto) Eos # (Auto) Baso # [...] <Electronically signed by Mike Burleson MD> 03/10/24 [facility] Work Phone: 1(792) 802-349610-06-2024 Progress note Author João Powell [facility] March 10, 2024 10:14amNote Date/TimeOct2023 10:14amDown[place] [address] Hospitalist Progress Note Signed Patient: Myra Pickard SR MR#: [id number] : 1965 Acct:[id number] Age/Sex: 58 / M Adm Date: 4 Loc: 3T Room: [address] [place] [address] Type: ADM IN Attending Dr: João Powell [...] IV 03/10/25 09:22 DAILY PRN Hypomagnesemia Ipratropium Anahola 0.5 mg 03/08/24 20:00 03/10/24 05:25 Ipratropium Anahola 0.5 Mg/2.5 Ml Vial.Neb INHALATION 03/08/25 19:59 [...] 09:00 03/10/24 08:21 Pantoprazole 40 Mg Tablet.Dr ZAVALA 03/09/25 08:59 40 mg DAILY SATISH Administration [...] signed by João Powell MD> 03/10/24 1014 [facility] Work Phone: 1([phone]) 953-548810-05-2024 Progress note Author João Powell [facility] March 09, 2024 11:32amNote Date/TimeOct2023 10:57[place] [address] Hospitalist Progress Note Signed Patient: Myra Pickard SR MR#: [id number] : 1965 Acct:[id number] Age/Sex: 58 / M Adm Date: 4 Loc: 3T Room: [address] [place] [address] Type: ADM IN Attending Dr: João Powell [...] 80 Mg Tablet PO 03/09/25 08:59 DAILY [facility] Ferrous Sulfate 324 mg 03/08/24 20:00 03/08/24 22:52 Ferrous Sulfate 324 Mg Tablet. PO 03/08/25 19:59 324 mg Q48H SATISH Administration Heparin Sodium (Porcine) 5,000 unit 03/08/24 22:00 03/09/24 05:31 Heparin 5,000 Unit/Ml Vial SUBCUT 03/08/25 21:59 5,000 unit Q8HR SATISH Administration Ipratropium Anahola 0.5 mg 03/08/24 20:00 03/09/24 09:14 Ipratropium Anahola 0.5 Mg/2.5 Ml Vial.Neb INHALATION 03/08/25 19:59 [...] 03/15/25 08:59 .5 Ml Pen Injector QWEEK [facility] Pantoprazole Sodium 40 mg 03/09/24 09:00 Pantoprazole 40 Mg Tablet. PO 03/09/25 08:59 DAILY [facility] Sodium Chloride 0 ml 03/08/24 14:21 [...] signed by João Powell MD> 03/09/24 1132 [facility] Work Phone: 1(991) 668-839210-05-2024 Consult note Author Job James [facility] March 09, 2024 11:12amNote Date/TimeOct2023 11:10am[place] [address] Psychiatry Consult Note Signed Patient: Myra Pickard SR MR#: [id number] : 1965 Acct:[id number] Age/Sex: 58 / M Adm Date: 4 Loc: Room: [address] [place] [address] Type : ADM IN Attending Dr: João [...] mass Atrial fibrillation Atherosclerotic heart disease of [place] coronary artery with unspecified angina pectoris Anxiety [...] Type: None Social History Comments: at [facility] Meds Medications and Allergies [...] [History Confirmed 03/08/24] flash glucose scanning reader (HemosphereStyle Jigar 2 [place]) #1 ea 12/28/23 [Rx Confirmed 03/08/24] flash [...] Appearance Clear Urine pH 5.0 Ur Specific Perry 1.013 Urine Protein Negative Urine Glucose (UA) [...] signed by Job James MD> 03/09/24 1112 [facility] Work Phone: [phone] 944-293310-05-2024 Consult note Author Luther Dozier [facility] March 09, 2024 10:59amNote Date/TimeOct2023 9:[address] [address] Neurology Consult Note Signed Patient: Myra Pickard SR MR#: [id number] : 1965 Acct:[id number] Age/Sex: 58 / M Adm Date: 4 Loc: Room: [address] [place] [address] Type: ADM IN Attending Dr: João Powell MD Copies to: DO Teresa Freeman DO Mohamad Akil, MD~ HPI Consult Date: 03/09/24 [employer] Operator: Luther Dozier DO [facility] Medical [...] mass Atrial fibrillation Atherosclerotic heart disease of [place] coronary artery with unspecified angina pectoris Anxiety [...] Type: None Social History Comments: at [facility] Meds Medications and Allergies [...] [History Confirmed 03/08/24] flash glucose scanning reader (HemosphereStyle Jigar 2 [place]) #1 ea 12/28/23 [Rx Confirmed 03/08/24] flash [...] Marks Jr., D.O.03/08/2024 2:41 PM Dictation Location: [facility]- Chest X-Ray 03/08/24 17:03 IMPRESSION: No acute process. Impression dictated by: Sudeep Lind M.D.03/08/2024 6:08 PM Dictation Location: [place] [address] Brain MRI 03/08/24 17:48 IMPRESSION: No acute intracranial process. Impression dictated by: Sudeep Lind M.D.03/08/2024 8:10 PM Dictation Location: [facility]-01 Assessment/Plan (1) Altered mental status: Qualifiers: Altered mental status type: unspecified Qualified Code(s): R41.82 - Altered mental status, unspecified Plan CONSULT REASON: Sudden AMS, stroke ruled out HPI: 58-year-old man. History that includes coronary artery disease with PCI, peripheral vascular disease, type 2 diabetes, hypertension, heart failure, diabetic neuropathy, status post recent below the knee amputation at [facility]. He had just been here several days [...] [facility] He said the year was 20. EXAMINATION: [...] <Electronically signed by Luther Dozier DO> 03/09/24 4525 [facility] Work Phone: 1(524) 962-148810-05-2024 History and physical note Author João Powell [facility] March 08, 2024 10:05pmNote Date/TimeOct2023 7:19pm[place] [address] Hospitalist H&P Signed Patient: Myra Pickard SR MR#: [id number] : 1965 Acct:[id number] Age/Sex: 58 / M Adm Date: 4 Loc: 3T Room: [address] [place] [address] Type: ADM IN Attending Dr: João Powell [...] diabeticneuropathy status post right BKA recently at [facility], here today for altered mental status. History [...] neck were all negative. ED staff contacted [place] neuro stroke team and patientwas deemed not [...] mass Atrial fibrillation Atherosclerotic heart disease of [place] coronary artery with unspecified angina pectoris Anxiety [...] Type: None Social History Comments: at [facility] Meds Medications and Allergies [...] [History Confirmed 03/08/24] flash glucose scanning reader (Amakem Jigar 2 [place]) #1 ea 12/28/23 [Rx Confirmed 03/08/24] flash [...] % (Auto) 13.1 % (.) 03/08/24 14:15 Coosa % (Auto) 13.2 % (.) 03/08/24 14:15 Eos % (Auto) 3.3 % (.) 03/08/24 14:15 Baso % (Auto) 1.0 % (.) 03/08/24 14:15 Nucleat RBC Rel Count 0.2 /100 WBC (0-0.5) 03/08/24 14:15 Neut # (Auto) 6.2 x10E3/uL (1.8-7.7) 03/08/24 14:15 Lymph # (Auto) 1.2 x10E3/uL (1.00-4.8) 03/08/24 14:15 Coosa # (Auto) 1.2 x10E3/uL (0.0-0.8) H 03/08/24 [...] pH 5.0 (5.0-9.0) 03/08/24 16:11 Ur Specific Perry 1.013 (1.001-1.030) 03/08/24 16:11 Urine Protein Negative [...] <Electronically signed by João Powell MD> 03/08/242204 [facility] Work Phone: 1(266) 633-873410-01-2024 Progress note Author Luther Dozier [facility] March 05, 2024 2:28pmNote Date/TimeOct2023 2:22pm[place] [address] Neurology Progress Note Signed Patient: Myra Pickard SR MR#: [id number] : 1965 Acct:[id number] Age/Sex: 58 / M Adm Date: 4 Loc: 3T Room: [address] [place] [address] Type: ADM IN Attending Dr: João Powell [...] Therapy Recommendations: OT Recommendations OT Recommended Discharge Residential Facility Location PT Recommendations PT Recommended Discharge Residential Facility Location PT Recommended Services at Physical [...] <Electronically signed by Luther Dozier DO> 03/05/24 1425 [facility] Work Phone: 1(109) 328-801510-01-2024 Progress note Author João Powell [facility] March 05, 2024 2:17pmNote Date/TimeOctober 2023 2:17pm[place] [address] Hospitalist Progress Note Signed Patient: Myra Pickard SR MR#: [id number] : 1965 Acct:[id number] Age/Sex: 58 / M Adm Date: 4 Loc: 3T Room: [address] [place] [address] Type: ADM IN Attending Dr: João Powell [...] 1,000 Ml IV 03/03/25 17:59 60 mls/hr .[id number] SATISH Administration Ferric Sodium Gluconate 110 mls @ 110 mls/hr 03/05/24 12:00 03/05/24 13:18 Complex 125 mg/ Sodium IV 03/07/24 09:01 110 mls/hr Chloride QAM SATISH Administration Insulin Aspart 0 units 03/04/24 12:00 03/05/24 11:41 Insulin Aspart 300 Units/3 Ml Insuln.Pen SUBCUT 03/04/25 11:59 Not Given TID.WM.HS [facility] Protocol Ipratropium Anahola 0.5 mg 03/04/24 09:00 03/05/24 13:59 Ipratropium Anahola 0.5 Mg/2.5 Ml Vial.Neb INHALATION 03/04/25 08:59 [...] signed by João Powell MD> 03/05/24 1417 [facility] Work Phone: 1([phone] 654-576310-01-2024 Consult note Author Mike Burleson [facility] March 05, 2024 1:35pmNote Date/TimeOct2023 9:32am[place] [address] Gastroenterology Consult Note Signed Patient: Myra Pickard MR#: [id number] : 1965 Acct:[id number] Age/Sex: 58 / M Adm Date: 4 Loc: 3T Room: [address] [place] [address] Type: ADM IN Attending Dr: João Powell [...] mass Atrial fibrillation Atherosclerotic heart disease of [place] coronary artery with unspecified angina pectoris Anxiety [...] Type: None Social History Comments: at [facility] Meds Medications and Allergies [...] 12/25/23[Rx Confirmed 03/03/24] flash glucose scanning reader (Amakem Jigar 2 [place]) #1 ea 12/28/23 [Rx Confirmed 03/03/24] flash glucose sensor (HemosphereStyle Jigar 2 Sensor kit) #1 ea 12/28/23 [...] MPV Neut % (Auto) Lymph % (Auto) Co[place] % (Auto) Eos % (Auto) Baso % (Auto) Nucleat RBC Rel Count Neut # (Auto) Lymph # (Auto) [place] # (Auto) Eos # (Auto) Baso # [...] MPV Neut % (Auto) Lymph % (Auto) [place] % (Auto) Eos % (Auto) Baso % (Auto) Nucleat RBC Rel Count Neut # (Auto) Lymph # (Auto) [place]osa # (Auto) Eos # (Auto) Baso # [...] Type Recheck O Positive Antibody Screen Crossmatch (AH) 03/04/24 03/05/24 03/05/24 20:45 06:11 06:54 Corrected WBC 8.3 Uncorrected WBC Count 8.3 RBC 3.83 L Hgb 8.6 L Hct 26.8 L MCV 70.1 L MCH 22.4 L MCHC 31.9 L RDW 21.4 H Plt Count 361 MPV 7.9 Neut % (Auto) 67.6 Lymph % (Auto) 16.1 Coosa % (Auto) 12.4 Eos % (Auto) 2.8 Baso % (Auto) 1.1 Nucleat RBC Rel Count 0.0 Neut # (Auto) 5.6 Lymph # (Auto) 1.3 Coosa # (Auto) 1.0 H Eos # (Auto) [...] Type Blood Type Recheck Antibody Screen Crossmatch (AH) A&P - Gastroenterology Assessment/Plan (1) Anemia: Plan -Iron studies show likely early iron deficiency. The patient is not having any overt GI bleeding and does not need any urgent endoscopic evaluation. -Recommend obtaining prior GI workup from [facility] -I recommend continuing his PPI -Recommend avoiding [...] with his previous GI team at [facility] Thank you for this consult, little further to add from a GI standpoint. I will peripherally follow pending discharge. Documented By: Mike Burleson MD 03/05/24 0932 Signed By: <Electronically signed by Mike Burleson MD> 03/05/24 1333 [facility] Work Phone: 1(993) 442-325809-30-2024 Consult note Author Luther Dozier [facility] March 04, 2024 12:57pmNote Date/TimeSeptember 2023 12:57pm[place] [address] Neurology Consult Note Signed Patient: Myra Pickard SR MR#: [id number] : 1965 Acct:[id number] Age/Sex: 58 / M Adm Date: 4 Loc: Room: [address] [place] [address] Type: ADM INOo Attending Dr: João Powell MD Copies to: DO Teresa Freeman DO Mohamad Akil, MD~ HPI Consult Date: 03/04/24 [employer] Operator: Luther Dozier DO [facility] Medical [...] mass Atrial fibrillation Atherosclerotic heart disease of [place] coronary artery with unspecified angina pectoris Anxiety [...] Type: None Social History Comments: at [facility] Meds Medications and Allergies [...] 12/25/23[Rx Confirmed 03/03/24] flash glucose scanning reader (Digital Harboryle Jigar 2 [place]eter) #1 ea 12/28/23 [Rx Confirmed 03/03/24] flash glucose sensor (HemosphereStyle Jigar 2 Sensor kit) #1 ea 12/28/23 [...] Sudeep Lind M.D.03/03/2024 3:05 PM Dictation Location[facility]Pelvis CT 03/03/24 14:19 IMPRESSION: No acute findings. Moderate constipation. Impression dictated by: Sudeep Lind M.D.03/03/2024 3:01 PM Dictation Location: [facility] Head CT 03/03/24 16:59 IMPRESSION: No acute findings. Impression dictated by: Sudeep Lind M.D.03/03/2024 5:50 PM Dictation Location: [place] [address] Assessment/Plan (1) Syncope: Qualifiers: Syncope type: unspecified Qualified Code(s): R55 - Syncope and collapse Plan CONSULT REASON: Syncope HPI: 58-year-old man. Significant bodily vasculopathy, probably secondary to diabetes. History of coronary artery disease requiring percutaneous intervention, peripheral vascular disease, type 2 diabetes,hypertension, severediabetic polyneuropathy, nonhealing right lower extremity wounds now status postright below the knee amputation about 3 weeks ago at [facility]. He was feeling lightheaded everytime he was [...] hands would be shaky with these episodes. Hemay have completely syncopized once. In the emergency [...] signed by Luther Dozier DO> 03/04/24 1257 [facility] Work Phone: 1(915) 512-101609-30-2024 Progress note Author João Powell [facility] March 04, 2024 11:53amNote Date/TimeSeptember 2023 11:46am[place] [id number] Hospitalist Progress Note Signed Patient: Myra Pickard SR MR#: [id number] : 1965 Acct:[id number] Age/Sex: 58 / M Adm Date: 4 Loc: Room: [address] [place] [address] Type: ADM INOo Attending Dr: João Powell [...] 1,000 Ml IV 03/03/25 17:59 60 mls/hr .[id number] SATISH Administration Sodium Chloride 500 mls @ 20 mls/hr 03/04/24 09:29 0.9 % Sodium Chloride IV 03/05/24 09:28 PROTOCOL PRN BLOOD TRANSFUSION Ipratropium Anahola 0.5 mg 03/04/24 09:00 03/04/24 10:47 Ipratropium [place]ola 0.5 Mg/2.5 Ml Vial.Neb INHALATION 03/04/25 08:59 [...] signed by João Powell MD> 03/04/24 1153 [facility] Work Phone: 1(417) 160-162109-30-2024 History and physical note Author João Powell [facility] March 03, 2024 10:48pmNote Date/TimeSeptember 2023 5:55pmDown[place] [address] Hospitalist H&P Signed Patient: Myra Pickard SR MR#: [id number] : 1965 Acct:[id number] Age/Sex: 58 / M Adm Date: 4 Loc: Room: [address] [place] [address] Type: ADM INOo Attending Dr: João Powell [...] diabeticneuropathy status post right BKA recently at [facility]. He presents today with episodes of lightheadedness [...] mass Atrial fibrillation Atherosclerotic heart disease of [place] coronary artery with unspecified angina pectoris Anxiety [...] 12/25/23[Rx Confirmed 03/03/24] flash glucose scanning reader (Digital Harboryle Jigar 2 [place]) #1 ea 12/28/23 [Rx Confirmed 03/03/24] flash glucose sensor (HemosphereStyle Jigar 2 Sensor kit) #1 ea 12/28/23 [...] % (Auto) 18.2 % (.) 03/03/24 14:00 Coosa % (Auto) 11.3 % (.) 03/03/24 14:00 Eos % (Auto) 3.2 % (.) 03/03/24 14:00 Baso % (Auto) 1.7 % (.) 03/03/24 14:00 Nucleat RBC Rel Count 0.2 /100 WBC (0-0.5) 03/03/24 14:00 Neut # (Auto) 4.7 x10E3/uL (1.8-7.7) 03/03/24 14:00 Lymph # (Auto) 1.3 x10E3/uL (1.00-4.8) 03/03/24 14:00 Coosa # (Auto) 0.8 x10E3/uL (0.0-0.8) 03/03/24 14:00 [...] pH 5.0 (5.0-9.0) 03/03/24 14:35 Ur Specific Perry 1.009 (1.001-1.030) 03/03/24 14:35 Urine Protein Negative [...] <Electronically signed by João Powell MD> 03/03/24 2820 [facility] Work Phone: [phone]) 338-242209-26-2024 History of Present illness Narrative* Mike Montes [...] Removal of toshia next week at [facility] and sizing for prosthesis.. documented in this encounterLancaster Municipal HospitalFanchimp [facility] [id number] History of Present illness Narrative* Guero Tam DO - 02/28/2024 2:51 PM EDT Patient Name: Myra Pickard Date of : 1965 Date of Service: 02/28/2024 Facility: [facility] Type of Visit: Skilled Visit Subjective Myra [...] polyneuropathy associated with type 2 diabetes mellitus ([facility]) 4. Other abnormalities of gait and mobility 5. Muscle spasm I'm going to add baclofen 10 mg Q6hrs prn spasm. D/C januvia since he is on Trulicity. Continue therapy and other orders as directed. All medications reviewed and are medically necessary. ELECTRONICALLY SIGNED BY: Guero Tam DO documented in this encounterLancaster Municipal HospitalRegulatoryBinder [id number] History of Present illness Narrative* Guero Tam [...] and grafts Fibromyalgia Atherosclerotic heart disease of [place] coronary artery without angina pectoris GERD glaucoma Gout Hyperlipidemia Essential hypertension Migraine Polyneuropathy Obstructive and reflux uropathy RLS Osteoarthritis Dorsalgia Benign prostatic hyperplasia with lower urinary tract symptoms Bilateral carpal tunnel syndrome Heart failure unspecified Nicotine dependence of cigarettes Plan: Admit to [facility] for therapies. continue medications. Full code Renew oxycodone 10 mg Q6hrs prn Good rehab potential. Discharge to home when able to safely discharge [facility] Discharge instructions Patient Education [...] return to a sport or hobby. Some [employer] design adaptive equipment for this purpose. Talk [...] to cope with stress. General instructions Take pdcs-mao-xasoarl and prescription medicines only as told by [...] department or: Call your local emergency services (412 in the [place] Call a suicide crisis helpline, such as the National Suicide Prevention Lifeline at or 867 in the [place] This is open 24 hours a day in the [place] Text the Crisis Text Line at 537599 (in the [place] Summary It will take [...] provider. Document Revised: 12/15/2021 Document Reviewed: 10/07/2021 [employer] Patient Education 2023 [employer]. Follow Up Care 02/09/2024 10:35:38 With:TERESA LYNCH DO, FAM Address: [address] [place] [address]- When: Unknown With:Mike Montes MD Address: [address] [place] [address]- When:2 weeks Comments:Call for followup appointment [facility] 09-18-2024 NoteDischarge Summary Admission [...] With When Contact Information TERESA LYNCH DO, [facility] [address] [place] [address]- Additional Instructions: Simon HERRERA, [facility] Within 2 weeks [address] [place] [address]- Additional Instructions: Call for followup appointment Patient Education Living With an AmputationSt. Mary'S Medical CenterComment on above:Result Comment: Electronically Signed By: Raulito Gilliland DO\.br\Date and Time Signed: 02/21/24 15:01 [id number] Evaluation + Plan noteExtracted from:Title: Discharge NoteAuthor:Raulito [...] With When Contact Information TERESA LYNCH DO, [facility] [address] [place] [address]- Additional Instructions: Simon HERRERA, Mike Weathers Within 2 weeks [address] [place] [address]- Additional Instructions: Call for followup appointment Living With an Amputation Extracted from:Title:APSO NoteAuthor:Raulito Gilliland DODate:02/21/24 Patient is a 58-year-old mal e with past medical history of NJ/CAD, heart failure, GERD, HTN, COPD, insulin-dependent type [...] daily to aid in wound healing [facility] Straight Fwd 25 Minutes 04295 2. Leukocytosis (D72.829: Elevated white blood cell [...] artery disease (I25.10: Atherosclerotic heart disease of [place] coronary artery withoutangina pectoris) Aspirin, atorvastatin 80 mg p.o. daily, Plavix Metoprolol, isosorbide mononitrate, Lasix 9. Tobacco abuse (Z72.0: Tobacco use) Counseled on cessation. Nicotine patch. Orders: Capillary Glucose POC CBC w/ Auto Diff Change Attending Extracted from:Title:APSO NoteAuthor:Castillomemo Ben JOSEPH DODate:02/20/24 Patient is a 58-year-old mal e with past medical history of NJ/CAD, heart failure, GERD, HTN, COPD, insulin-dependent type [...] eGFR Sbsq Hospital Care/Day Moderate 35 Minutes 22440 2. Leukocytosis (D72.829: Elevated white blood cell count, unspecified) Likely reactive with nausea and vomiting overnight. Will continue to monitor closely. No signs of infection of surgical wound. Follow-up a.m. labs. 3. Essential hypertension (I10: Essential (primary) hypertension) Metoprolol, isosorbide mononitrate, Lasix. Well-controlled. Or[facility]: [facility]/Day Moderate 35 Minutes 88794 4. Hyperlipidemia (E78.5: Hyperlipidemia, unspecified) Statin Ordered: [facility]/Day Moderate 35 Minutes 18283 5. Anemia (D64.9: Anemia, unspecified) Acute on chronic. Stable postoperatively. Will continue to monitor closely Ordered: Basic Metabolic Panel CBC w/ Auto Diff [facility] Care/Day Moderate 35 Minutes 29894 6. 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 (E11.42: Type 2 diabetes mellitus with diabetic polyneuropathy) Glimepiride 2 mg p.o. twice daily, glargine 35 units nightly, lispro 5 units with meals, BGT ACHS, sliding scale insulin as needed with meals Poorly controlled. Increased glargine to 35 units nightly om 02/18 from 30 units nightly. Ordered: [facility] Care/Day Moderate 35 Minutes 45447 7. Stage 3 chronic kidney disease (N18.30: Chronic kidney disease, stage 3 unspecified) Creatinine 1.8. Baseline 1.5-1.6. Monitor closely. Ordered: Basic Metabolic Panel CBC w/ Auto Diff eGFR [facility] Care/Day Moderate 35 Minutes 81985 8. Coronary artery disease (I25.10: Atherosclerotic heart disease of [place] coronary artery withoutangina pectoris) Aspirin, atorvastatin 80 mg p.o. daily, Plavix Metoprolol, isosorbide mononitrate, Lasix Ordered: [facility] Care/Day Moderate 35 Minutes 91872 9. Tobacco abuse (Z72.0: Tobacco use) Counseled on cessation. Nicotine patch. Orders: oxycodone, 10 mg = 2 tab(s), Tab, Oral, q4hr PRN Pain for 5 day(s), Stop date 02/25/24 19:00:00 EDT, Routine, Start date 02/20/24 19:01:00 EDT, 02/20/24 19:01:00 EDT Extracted from:Title:APSO NoteAuthor:Ben Corrigan III, DODate:02/19/24 Patient is a 58-year-old mal e with past medical history of NJ/CAD, heart failure, GERD, HTN, COPD, insulin-dependent type [...] Basic Metabolic Panel CBC w/ Auto Diff [facility] Care/Day Moderate 35 Minutes 99068 2. Essential hypertension (I10: Essential (primary) hypertension) Metoprolol, isosorbide mononitrate, Lasix. Well-controlled. Ordered: [facility] Care/Day Moderate 35 Minutes 43775 3. Hyperlipidemia (E78.5: Hyperlipidemia, unspecified) Statin Ordered: [facility] Care/Day Moderate 35 Minutes 51941 4. Anemia (D64.9: Anemia, unspecified) Acute on chronic. Stable postoperatively. Will continue to monitor closely Ordered: CBC w/ Auto Diff [facility] Care/Day Moderate 35 Minutes 41276 5. 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 (E11.42: Type 2 diabetes mellitus with diabetic polyneuropathy) Glimepiride 2 mg p.o. twice daily, glargine 30 units nightly, lispro 5 units with meals, BGT ACHS, sliding scale insulin as needed with meals Poorly controlled. Will increase glargine to 35 units nightly. Ordered: [facility] Care/Day Moderate 35 Minutes 34801 6. Stage 3 chronic kidney disease (N18.30: Chronic kidney disease, stage 3 unspecified) Creatinine 1.7. Baseline 1.5-1.6. Monitor closely. Ordered: Basic Metabolic Panel [facility] Care/Day Moderate 35 Minutes 82150 7. Coronary artery disease (I25.10: Atherosclerotic heart disease of [place] coronary artery withoutangina pectoris) Aspirin, atorvastatin 80 [...] 8 hours, regular diet, full code Extracted from:Title:TOMASAO NoteAuthor:Elan Antonio MDDate:02/18/24 Goal: 1. monitor BP 2. Monitor Hgb [...] artery disease (I25.10: Atherosclerotic heart disease of [place] coronary artery withoutangina pectoris) continue plavix as ordered 8. Tobacco abuse (Z72.0: Tobacco use) nicotine patch Orders: insulin lispro, 5 unit(s) = 0.05 mL, Injection-Insulin, SubCutaneous, TIDWM, Routine, Start date 02/18/24 12:00:00 EDT Basic Metabolic Panel CBC w/ Auto Diff Extracted from:Title:APSO NoteAuthor:Elan Antonio MDDate:02/17/24 Goal: 1. Aggressive bowel regimen as ordered 2. Monitor hgb 3. Monitor BGL, better controlled but still elevated. DVT prophylaxis with heparin if tolerated. 1. Hx of right BKA (Z89.511: Acquired absence of right leg below knee) Pain control PT/OT discharge to rehab Ordered: [facility] Hospital Care/Day High 50 Minutes 34724 [facility] Hospital Care/Day Moderate 35 Minutes 55047 2. Essential hypertension (I10: Essential (primary) hypertension) good control continue to hold losartan continue lasix and imdur monitor BP Ordered: [facility] Care/Day High 50 Minutes 03738 [facility] Care/Day Moderate 35 Minutes 28288 3. Hyperlipidemia (E78.5: Hyperlipidemia, unspecified) continue statin Ordered: [facility] Care/Day High 50 Minutes 49400 [facility] Care/Day Moderate 35 Minutes 80652 4. Anemia (D64.9: Anemia, unspecified) Acute Blood loss anemia, possibly post surgical loss hgb has remained stable post transfusion continue to monitor CBC today Ordered: [facility] Care/Day High 50 Minutes 11937 [facility] Care/Day Moderate 35 Minutes 69919 5. 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 (E11.42: Type 2 diabetes mellitus with diabetic polyneuropathy) BGL is better controlled today compared to yesterday continue current insulin dose with sliding scale If BGl continues to be elevated during the day today, will start meal time scheduled coverage Ordered: [facility] Care/Day High 50 Minutes 43563 [facility] Care/Day Moderate 35 Minutes 98947 6. Stage 3 chronic kidney disease (N18.30: Chronic kidney disease, stage 3 unspecified) Overall renal function is stable continue to monitor Ordered: [facility] Care/Day High 50 Minutes 55342 [facility] Care/Day Moderate 35 Minutes 44209 7. Coronary artery disease (I25.10: Atherosclerotic heart disease of [place] coronary artery withoutangina pectoris) On home medication/ continue plavix and statin Ordered: [facility] Care/Day High 50 Minutes 72235 [facility] Care/Day Moderate 35 Minutes 83476 8. Tobacco abuse (Z72.0: Tobacco use) nicotine patch Ordered: [facility] Care/Day High 50 Minutes 98277 [facility] Care/Day Moderate 35 Minutes 32157 Orders: acetaminophen-oxycodone, 2 tab(s), Tab, Oral, [id number], Routine, Start date 02/16/24 14:00:00 EDT heparin, [...] Auto Diff Extracted from:Title:APSO NoteAuthor:Marisela HERRERA, Elan RobbinsDate:02/16/24 Goals: 1. 2 time dose of lactulose [...] CBC w/ Auto Diff eGFR Path. Review [facility] Care/Day High 50 Minutes 83688 [facility] Care/Day High 50 Minutes 25047 2. Essential hypertension (I10: Essential (primary) hypertension) had to held lasix this morning due to low BP continue other home meds, Imdur, Ordered: Basic Metabolic Panel CBC w/ Auto Diff eGFR Path. Review [facility] High 50 Minutes 70700 [facility] Care/Day High 50 Minutes 72846 3. Hyperlipidemia (E78.5: Hyperlipidemia, unspecified) continue statin Ordered: Basic Metabolic Panel CBC w/ Auto Diff eGFR Path. Review [facility]/Day High 50 Minutes 64557 [facility] Care/Day High 50 Minutes 04784 4. Anemia (D64.9: Anemia, unspecified) hgb is stable post transfusion at 7.6 since patient is stable, will start heparin prophylaxis Ordered: Basic Metabolic Panel CBC w/ Auto Diff eGFR Path. Review [facility] Care/Day High 50 Minutes 73820 [facility] Care/Day High 50 Minutes 46521 5. 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 Review [facility] Care/Day High 50 Minutes 49481 [facility] Care/Day High 50 Minutes 85086 6. Stage 3 chronic kidney disease (N18.30: Chronic kidney disease, stage 3 unspecified) stable continue to monitor Ordered: Basic Metabolic Panel CBC w/ Auto Diff eGFR Path. Review [facility] Care/Day High 50 Minutes 36755 [facility] Care/Day High 50 Minutes 01137 7. Coronary artery disease (I25.10: Atherosclerotic heart disease of [place] coronary artery withoutangina pectoris) overall stable continue plavix Ordered: Basic Metabolic Panel CBC w/ Auto Diff eGFR Path. Review [facility] Care/Day High 50 Minutes 92320 [facility] Care/Day High 50 Minutes 51225 8. Tobacco abuse (Z72.0: Tobacco use) nicotine patch Ordered: Basic Metabolic Panel CBC w/ Auto Diff eGFR Path. Review [facility] Care/Day High 50 Minutes 91530 [facility] Care/Day High 50 Minutes 27890 Orders: acetaminophen-oxycodone, 2 tab(s), Tab, Oral, [id number], Routine, Start date 02/16/24 14:00:00 EDT heparin, [...] Start date 02/15/24 15:00:00 EDT Extracted from:Title:APSO NoteAuthor:Marisela HERRERA, Elan RobbinsDate:02/15/24 Goal: 1. BGL control 2. Wound team or vascular to come look at stump 3. Pain control. will start spacing out frequency of dilaudid 1. Hx of right BKA (Z89.511: Acquired absence of right leg below knee) pain control PT/OT wound care team or vascular to reevaluate stump/dressing Ordered: Basic Metabolic Panel CBC w/ Auto Diff [facility] Hospital Care/Day High 50 Minutes 20758 2. Essential hypertension (I10: Essential (primary) hypertension) good control continue current medications Ordered: Basic Metabolic Panel CBC w/ Auto Diff [facility] Hospital Care/Day High 50 Minutes 62414 3. Hyperlipidemia (E78.5: Hyperlipidemia, unspecified) statin Ordered: Basic Metabolic Panel CBC w/ Auto Diff [facility] Hospital Care/Day High 50 Minutes 09411 4. Anemia (D64.9: Anemia, unspecified) hgb has remained stable since transfusion hgb is 7.7. i thought it should be higher than than considering that he received 2 units of PRBC. Ordered: Basic Metabolic Panel CBC w/ Auto Diff [facility] Hospital Care/Day High 50 Minutes 38611 5. 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 (E11.42: Type 2 diabetes mellitus with diabetic polyneuropathy) BGL is poorly controlled diabetic diet increase lantus to 25 units QHS accucheck achs Ordered: Basic Metabolic Panel CBC w/ Auto Diff [facility] Hospital Care/Day High 50 Minutes 36209 6. Stage 3 chronic kidney disease (N18.30: Chronic kidney disease, stage 3 unspecified) overall stable, but noted mild increase in creatinine today contiue to monitor Ordered: Basic Metabolic Panel CBC w/ Auto Diff [facility] Care/Day High 50 Minutes 78501 7. Coronary artery disease (I25.10: Atherosclerotic heart disease of [place] coronary artery withoutangina pectoris) Plavix for secondary prophylaxis Ordered: Basic Metabolic Panel CBC w/ Auto Diff [facility] Care/Day High 50 Minutes 10907 8. Tobacco abuse (Z72.0: Tobacco use) nicotine patch Ordered: Basic Metabolic Panel CBC w/ Auto Diff [facility] Care/Day High 50 Minutes 63162 Orders: insulin glargine, 25 unit(s), Injection-Insulin, SubCutaneous, [...] Implement Plan Extracted from:Title:APSO NoteAuthor:Marisela HERRERA, Elan RobbinsDate:02/14/24 1. 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 due to poor pain control, I discontinued IV morphine and switched to IV dilaudid PT/OT appreciate Vascular team recommendations Ordered: [facility] Care/Day High 50 Minutes 74369 2. Essential hypertension (I10: Essential (primary) hypertension) Better compared to yesterday. continue current management currently on lasix, losartan, metoprolol and imdur. seems to be too much BP meds since BP is about 120s. continue to monitor BP. Ordered: [facility] Care/Day High 50 Minutes 74150 3. Hyperlipidemia (E78.5: Hyperlipidemia, unspecified) continue statin Ordered: [facility] Hospital Care/Day High 50 Minutes 87519 4. Anemia (D64.9: Anemia, unspecified) Acute on chronic anemia due to surgical intervention hgb has remained stable since transfusion continue to monitor h and h Ordered: [facility] Care/Day High 50 Minutes 91633 5. 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 continue lantus at current dose continue Jardiance and Glimipiride Ordered: [facility] Care/Day High 50 Minutes 90323 6. Stage 3 chronic kidney disease (N18.30: Chronic kidney disease, stage 3 unspecified) possible due to complication of DM. monitor renal function. creatinine at baseline of 1.9. needs out patient follow up for Nephro recommendation 7. Coronary artery disease (I25.10: Atherosclerotic heart disease of [place] coronary artery withoutangina pectoris) continue plavix and asa as ordered Orders: acetaminophen-oxycodone, 1 tab(s), Tab, Oral, [id number], Routine, Start date 02/13/24 13:00:00 EDT furosemide, [...] Plan Referral to Resource Center Extracted from:Title:APSO NoteAuthor:Elan Antonio MDDate:02/13/24 1. 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 appreciate additional recommendation from Vascular team Ordered: Initial Hospital Care/Day High 75 Minutes 17400 2. Essential hypertension (I10: Essential (primary) hypertension) BP on the low side today unsure if this is related to ?Anemia hold Losartan monitor BP, if still low, will bolus. Ordered: Initial Hospital Care/Day High 75 Minutes 57459 3. Hyperlipidemia (E78.5: Hyperlipidemia, unspecified) statin Ordered: Initial Hospital Care/Day High 75 Minutes 74645 4. Anemia (D64.9: Anemia, unspecified) Acute on chronic anemia. acute loss due to post op blood loss transfused 2 units of PRBC today. continue to monitor will hold asa and plavix for now and resume when Anemia improves or stabilized Also hold off on anticoagulation until anemia stabilizes can do scd on left leg Ordered: Initial Hospital Care/Day High 75 Minutes 48085 5. 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 (E11.42: Type 2 diabetes mellitus with diabetic polyneuropathy) poorly controlled diabetic diet continue glimipiride, lantus and januvia Monitor BGL and treate with sliding scale as needed Ordered: Initial Hospital Care/Day High 75 Minutes 24114 Orders: acetaminophen-oxycodone, 1 tab(s), Tab, Oral, [id number], Routine, Start date 02/13/24 13:00:00 EDT amitriptyline, [...] Patient Extracted from:Title:ANES Post Op - GeneralAuthor:MD Solomon Ahmad FDate: 02/12/24 Plan Transfer/Discharge: Transfer/Discharge Discharge when meets criteria ( To home ). Extracted from:Title:ANES Pre Op - Adult GeneralAuthor:MD Solomon Ahmad Date:02/12/24 Plan [place] [employer] (ASA) physical status classification: [...] US PVR Lower EXT Complete Bilat 11/20/23 [facility] 09-18-2024 NotePeripheral smear evaluation:[facility]S Medical CenterComment on above:Performed By: #### [id number] #### [facility] [address] [place], [place] [phone] NoteProgress Note-Physician Assessment/Plan Patient is a 58-year-old male with past medical history of NJ/CAD, heart failure, GERD, HTN, COPD, insulin-dependent type [...] daily to aid in wound healing Ordered: [facility] Care/Day Straight Fwd 25 Minutes 27216 2. Leukocytosis (D72.829: Elevated white blood cell [...] artery disease (I25.10: Atherosclerotic heart disease of [place] coronary artery withoutangina pectoris) ? Aspirin, atorvastatin [...] Lymph Auto: 12.4 % Low (02/21/24 06:02:00) [place] Auto: 8.7 % (02/21/24 06:02:00) Eos Auto: 3.6 % (02/21/24 06:02:00) Basophil Auto: 0.7 % (02/21/24 06:02:00) Neutro Absolute: 9.3 E9/L High (02/21/24 06:02:00) Lymph Absolute: 1.5 E9/L (02/21/24 06:02:00) [place] Absolute: 1.1 E9/L High (02/21/24 06:02:00) Eos [...] High (02/21/24 10:49: (more content not included)... [facility] CenterComment on above:Result Comment: Electronically Signed By: Raulito Gilliland DO\.br\Date and Time Signed: 02/21/24 10:56 EDT 02-20-2024 NoteProgress Note-Physician Assessment/Plan Patient is a 58-year-old male with past medical history of NJ/CAD, heart failure, GERD, HTN, COPD, insulin-dependent type [...] eGFR [facility] Hospital Care/Day Moderate 35 Minutes 06504 2. Leukocytosis (D72.829: Elevated white blood cell count, unspecified) ? Likely reactive with nausea and vomiting overnight. Will continue to monitor closely. No signs ofinfection of surgical wound. Follow-up a.m. labs. 3. Essential hypertension (I10: Essential (primary) hypertension) ? Metoprolol, isosorbide mononitrate, Lasix. Well-controlled. Ordered: [facility] Care/Day Moderate 35 Minutes 14896 4. Hyperlipidemia (E78.5: Hyperlipidemia, unspecified) ? Statin Ordered: [facility] Care/Day Moderate 35 Minutes 87913 5. Anemia (D64.9: Anemia, unspecified) ? Acute on chronic. Stable postoperatively. Will continue to monitor closely Ordered: Basic Metabolic Panel CBC w/ Auto Diff [facility] Care/Day Moderate 35 Minutes 95291 6. 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 Glimepiride 2 mg p.o. twice daily, glargine 35 units nightly, lispro 5 units with meals, BGT ACHS, sliding scale insulin as needed with meals ?Poorly controlled. Increased glargine to 35 units nightly om 02/18 from 30 units nightly. Ordered: [facility] Care/Day Moderate 35 Minutes 25623 7. Stage 3 chronic kidney disease (N18.30: Chronic kidney disease, stage 3 unspecified) ? Creatinine 1.8. Baseline 1.5-1.6. Monitor closely. Ordered: Basic Metabolic Panel CBC w/ Auto Diff eGFR [facility] Care/Day Moderate 35 Minutes 07691 8. Coronary artery disease (I25.10: Atherosclerotic heart disease of [place] coronary artery withoutangina pectoris) ? Aspirin, atorvastatin 80 mg p.o. daily, Plavix ? Metoprolol, isosorbide mononitrate, Lasix Ordered: [facility] Care/Day Moderate 35 Minutes 55672 9. Tobacco abuse (Z72.0: Tobacco use) ? [...] the indicated time period. (more content not included)...[facility] CenterComment on above:Result Comment: Electronically Signed By: Ben Corrigan III, DO.br\Date and Time Signed: 02/20/24 19:09 [id number] NoteProgress Note-Physician Assessment/Plan Patient is a 58-year-old male with past medical history of [place]/CAD, heart failure, GERD, HTN, COPD, insulin-dependent type [...] Basic Metabolic Panel CBC w/ Auto Diff [facility] Care/Day Moderate 35 Minutes 87992 2. Essential hypertension (I10: Essential (primary) hypertension) ? Metoprolol, isosorbide mononitrate, Lasix. Well-controlled. Ordered: [facility] Care/Day Moderate 35 Minutes 95295 3. Hyperlipidemia (E78.5: Hyperlipidemia, unspecified) ? Statin Ordered: [facility] Care/Day Moderate 35 Minutes 90779 4. Anemia (D64.9: Anemia, unspecified) ? Acute on chronic. Stable postoperatively. Will continue to monitor closely Ordered: CBC w/ Auto Diff [facility] Care/Day Moderate 35 Minutes 33853 5. 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 Glimepiride 2 mg p.o. twice daily, glargine 30 units nightly, lispro 5 units with meals, BGT ACHS, sliding scale insulin as needed with meals ?Poorly controlled. Will increase glargine to 35 units nightly. Ordered: [facility] Care/Day Moderate 35 Minutes 52775 6. Stage 3 chronic kidney disease (N18.30: Chronic kidney disease, stage 3 unspecified) ? Creatinine 1.7. Baseline 1.5-1.6. Monitor closely. Ordered: Basic Metabolic Panel [facility] Care/Day Moderate 35 Minutes 80043 7. Coronary artery disease (I25.10: Atherosclerotic heart disease of [place] coronary artery withoutangina pectoris) ? Aspirin, atorvastatin [...] Exam General: alert, no (more content not included)...[facility] Comment on above:Result Comment: Electronically Signed By: Ben Corrigan III, DO\.br\Date and Time Signed: 02/19/24 17:00 [id number] NoteProgress Note-Physician Patient: MYRA PICKARD SR Age: 58 years Sex: Male : 1965 Associated Diagnoses: None Author: MD Juanito, Laura Rodriguez Postoperative Information Postoperative disposition: Postoperative disposition: To PACU. Optimetrix number: Optimetrix number [id number]. Anesthetic utilized: General. Health Status Allergies: Allergic [...] Discharge when meets criteria ( To home ).[facility] CenterComment on above:Result Comment: Electronically Signed [...] mg oral tablet: 2 tab(s), Tab, Oral, [id number], Routine, Start date 02/16/24 14:00:00 EDT Plavix [...] cap(s), Oral, B (more content not included)... [facility] CenterComment on above:Result Comment: Electronically Signed [...] artery disease (I25.10: Atherosclerotic heart disease of [place] coronary artery withoutangina pectoris) continue plavix as [...] mg/dL High (02/18/24 11:32:00) POC Device SN: [id number] (02/18/24 11:32:00) POC User ID: [id number] (02/18/24 11:32:00) POC Username: RAJESH OSEGUERA (02/18/24 11:32:00) Problem List/Past Medical History Ongoing Arthritis Asthma BPH with obstruction/lower urinary tract symptoms COPD type A Fibromyalgia Gross hematuria Head ache Heart attack Heart disease Heart murmur Hyperlipidemia Orchitis Restless leg Smoker Urinary retention Historical CHF (congestive heart failure) GERD [Gastroesophageal reflux disease] HTN [Hypertension] NJ (myocardial infarction) NIDDM Medications Inpatient acetaminophen 325 [...] mg-325 mg oral tablet, 2 tab(s), Oral, [id number] Plavix 75 mg Tab, 75 mg= 1 tab(s), Oral, Daily polyethylene glycol 335 (more content not included)...[facility] CenterComment on above:Result Comment: Electronically Signed By: Marisela HERRERA, Elan Robbins\.br\Date and Time Signed: 02/18/24 13:45 [id number] NoteProgress Note-Physician Assessment/Plan Goal: 1. Aggressive bowel regimen as ordered 2. Monitor hgb 3. Monitor BGL, better controlled but still elevated. DVT prophylaxis with heparin if tolerated. 1. Hx of right BKA (Z89.511: Acquired absence of right leg below knee) Pain control PT/OT discharge to rehab Ordered: [facility] Care/Day High 50 Minutes 92691 [facility] Care/Day Moderate 35 Minutes 56907 2. Essential hypertension (I10: Essential (primary) hypertension) good control continue to hold losartan continue lasix and imdur monitor BP Ordered: [facility] Care/Day High 50 Minutes 10993 [facility] Care/Day Moderate 35 Minutes 77648 3. Hyperlipidemia (E78.5: Hyperlipidemia, unspecified) continue statin Ordered: [facility] Care/Day High 50 Minutes 10316 [facility] Care/Day Moderate 35 Minutes 10632 4. Anemia (D64.9: Anemia, unspecified) Acute Blood loss anemia, possibly post surgical loss hgb has remained stable post transfusion continue to monitor CBC today Ordered: [facility] Care/Day High 50 Minutes 74080 [facility] Care/Day Moderate 35 Minutes 79421 5. 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 (E11.42: Type 2 diabetes mellitus with diabetic polyneuropathy) BGL is better controlled today compared to yesterday continue current insulin dose with sliding scale If BGl continues to be elevated during the day today, will start meal time scheduled coverage Ordered: [facility] Care/Day High 50 Minutes 29462 [facility] Care/Day Moderate 35 Minutes 30002 6. Stage 3 chronic kidney disease (N18.30: Chronic kidney disease, stage 3 unspecified) Overall renal function is stable continue to monitor Ordered: [facility] Care/Day High 50 Minutes 41728 [facility] Care/Day Moderate 35 Minutes 04167 7. Coronary artery disease (I25.10: Atherosclerotic heart disease of [place] coronary artery withoutangina pectoris) On home medication/ continue plavix and statin Ordered: [facility] Care/Day High 50 Minutes 29780 [facility] Care/Day Moderate 35 Minutes 31077 8. Tobacco abuse (Z72.0: Tobacco use) nicotine patch Ordered: [facility] Care/Day High 50 Minutes 35089 [facility] Care/Day Moderate 35 Minutes 85033 Orders: acetaminophen-oxycodone, 2 tab(s), Tab, Oral, [id number], Routine, Start date 02/16/24 14:00:00 EDT heparin, [...] (02/17/24 07:49:00) POC Dev (more content not included)...[facility] CenterComment on above:Result Comment: Electronically Signed By: Marisela HERRERA, Elan Humphrey.br\Date and Time Signed: 02/17/24 10:36 [id number] NoteProgress Note-Physician Assessment/Plan Goals: 1. 2 time [...] [facility] Care/Day High 50 Minutes 93137 [facility] Care/Day High 50 Minutes 93850 2. Essential hypertension (I10: Essential (primary) hypertension) had to held lasix this morning due to low BP continue other home meds, Imdur, Ordered: Basic Metabolic Panel CBC w/ Auto Diff eGFR Path. [facility] Care/Day High 50 Minutes 25906 [facility] Care/Day High 50 Minutes 41476 3. Hyperlipidemia (E78.5: Hyperlipidemia, unspecified) continue statin Ordered: Basic Metabolic Panel CBC w/ Auto Diff eGFR Path. [facility] Care/Day High 50 Minutes 83173 [facility] Care/Day High 50 Minutes 29113 4. Anemia (D64.9: Anemia, unspecified) hgb is stable post transfusion at 7.6 since patient is stable, will start heparin prophylaxis Ordered: Basic Metabolic Panel CBC w/ Auto Diff eGFR Path. [facility] Care/Day High 50 Minutes 58802 [facility] Care/Day High 50 Minutes 58426 5. 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 Review [facility] Care/Day High 50 Minutes 89870 [facility] Care/Day High 50 Minutes 87605 6. Stage 3 chronic kidney disease (N18.30: Chronic kidney disease, stage 3 unspecified) stable continue to monitor Ordered: Basic Metabolic Panel CBC w/ Auto Diff eGFR Path. Review [facility] Care/Day High 50 Minutes 34801 [facility] Care/Day High 50 Minutes 88866 7. Coronary artery disease (I25.10: Atherosclerotic heart disease of [place] coronary artery withoutangina pectoris) overall stable continue plavix Ordered: Basic Metabolic Panel CBC w/ Auto Diff eGFR Path. Review [facility] Care/Day High 50 Minutes 29140 [facility] Care/Day High 50 Minutes 24924 8. Tobacco abuse (Z72.0: Tobacco use) nicotine patch Ordered: Basic Metabolic Panel CBC w/ Auto Diff eGFR Path. Review [facility] Care/Day High 50 Minutes 41775 [facility] Care/Day High 50 Minutes 09599 Orders: acetaminophen-oxycodone, 2 tab(s), Tab, Oral, [id number], Routine, Start date 02/16/24 14:00:00 EDT heparin, [...] no adenopathy, no tenderness (more content not included)...[facility] CenterComment on above:Result Comment: Electronically Signed By: Marisela HERRERA, Elan Humphrey.nile\Date and Time Signed: 02/16/24 13:30 [id number] NotePath ReviewPeripheral smear evaluation: - Moderate microcytic and hypochromic anemia with anisopoikilocytosis. - White blood cell and Platelet: Unremarkable. Comment: Recommend clinical correlation and rule out iron deficiency anemia. CPT: 11975 Moncho Blood MD 02/21/2024 12:59:29 EDT *NA* (02/16/24 6:12 AM)[facility] Correlor 09-12-2024 NoteProgress Note-Physician Assessment/Plan Goal: 1. BGL [...] Diff [facility] Care/Day High 50 Minutes 61585 2. Essential hypertension (I10: Essential (primary) hypertension) good control continue current medications Ordered: Basic Metabolic Panel CBC w/ Auto Diff [facility] Care/Day High 50 Minutes 76310 3. Hyperlipidemia (E78.5: Hyperlipidemia, unspecified) statin Ordered: Basic Metabolic Panel CBC w/ [facility] Diff [facility] High 50 Minutes 90086 4. Anemia (D64.9: Anemia, unspecified) hgb has remained stable since transfusion hgb is 7.7. i thought it should be higher than than considering that he received 2 units of PRBC. Ordered: Basic Metabolic Panel CBC w/ Auto Diff [facility] Care/Day High 50 Minutes 51419 5. 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 (E11.42: Type 2 diabetes mellitus with diabetic polyneuropathy) BGL is poorly controlled diabetic diet increase lantus to 25 units QHS accucheck achs Ordered: Basic Metabolic Panel CBC w/ Auto Diff [facility] Care/Day High 50 Minutes 40674 6. Stage 3 chronic kidney disease (N18.30: Chronic kidney disease, stage 3 unspecified) overall stable, but noted mild increase in creatinine today contiue to monitor Ordered: Basic Metabolic Panel CBC w/ Auto Diff [facility] Care/Day High 50 Minutes 24229 7. Coronary artery disease (I25.10: Atherosclerotic heart disease of [place] coronary artery withoutangina pectoris) Plavix for secondary prophylaxis Ordered: Basic Metabolic Panel CBC w/ Auto Diff [facility] Care/Day High 50 Minutes 44237 8. Tobacco abuse (Z72.0: Tobacco use) nicotine patch Ordered: Basic Metabolic Panel CBC w/ Auto Diff [facility] Care/Day High 50 Minutes 54637 Orders: insulin glargine, 25 unit(s), Injection-Insulin, SubCutaneous, [...] Hct: 22.2 % Low (more content not included)...[facility] CenterComment on above:Result Comment: Electronically Signed By: Marisela HERRERA, Elan Humphrey.br\Date and Time Signed: 02/15/24 13:28 [id number] NoteInterdisciplinary Note - PT PT Evaluation [facility]. Pt was able to perform bed mobility with Mod I and transfers with CGA/Min A. Pt was able to ambulate 4 feet with FWW, but does fatigue easily. Ptdoes report increased pain in right stump, but still maintained activity well. Pt will need furtherrehabilitation SNF in order to return home again safelySt. [facility]09-[facility] NoteProgress Note-Physician Assessment/Plan 1. 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 due to poor pain control, I discontinued IV morphine and switched to IV dilaudid PT/OT appreciate Vascular team recommendations Ordered: [facility] Care/Day High 50 Minutes 22202 2. Essential hypertension (I10: Essential (primary) hypertension) Better compared to yesterday. continue current management currently on lasix, losartan, metoprolol and imdur. seems to be too much BP meds since BP is about 120s. continue to monitor BP. Ordered: [facility] Care/Day High 50 Minutes 21420 3. Hyperlipidemia (E78.5: Hyperlipidemia, unspecified) continue statin Ordered: [facility] Care/Day High 50 Minutes 57601 4. Anemia (D64.9: Anemia, unspecified) Acute on chronic anemia due to surgical intervention hgb has remained stable since transfusion continue to monitor h and h Ordered: [facility] Care/Day High 50 Minutes 16275 5. 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 continue lantus at current dose continue Jardiance and Glimipiride Ordered: [facility] Care/Day High 50 Minutes 88280 6. Stage 3 chronic kidney disease (N18.30: Chronic kidney disease, stage 3 unspecified) possible due to complication of DM. monitor renal function. creatinine at baseline of 1.9. needs out patient follow up for Nephro recommendation 7. Coronary artery disease (I25.10: Atherosclerotic heart disease of [place] coronary artery withoutangina pectoris) continue plavix and asa as ordered Orders: acetaminophen-oxycodone, 1 tab(s), Tab, Oral, [id number], Routine, Start date 02/13/24 13:00:00 EDT furosemide, [...] Extremities: right BKA Debbie (more content not included)...[facility] CenterComment on above: Result Comment: Electronically Signed By: Marisela HERRERA, Elan Humphrey.br\Date and Time Signed: 02/14/24 09:57 [id number] NoteProgress Note-Physician Assessment/Plan 1. 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 appreciate additional recommendation from Vascular team Ordered: [facility] Care/Day High 75 Minutes 35669 2. Essential hypertension (I10: Essential (primary) hypertension) BP on the low side today unsure if this is related to ?Anemia hold Losartan monitor BP, if still low, will bolus. Ordered: [facility] Care/Day High 75 Minutes 25551 3. Hyperlipidemia (E78.5: Hyperlipidemia, unspecified) statin Ordered: [facility] Care/Day High 75 Minutes 42025 4. Anemia (D64.9: Anemia, unspecified) Acute on chronic anemia. acute loss due to post op blood loss transfused 2 units of PRBC today. continue to monitor will hold asa and plavix for now and resume when Anemia improves or stabilized Also hold off on anticoagulation until anemia stabilizes can do scd on left leg Ordered: [facility] Care/Day High 75 Minutes 58102 5. 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 (E11.42: Type 2 diabetes mellitus with diabetic polyneuropathy) poorly controlled diabetic diet continue glimipiride, lantus and januvia Monitor BGL and treate with sliding scale as needed Ordered: [facility] Care/Day High 75 Minutes 49249 Orders: acetaminophen-oxycodone, 1 tab(s), Tab, Oral, [id number], Routine, Start date 02/13/24 13:00:00 EDT amitriptyline, [...] He is now interested in going to [facility] to get PT to enable him [...] Back: No tenderness, Luzmaria (more content not included)...[facility] CenterComment on above:Result Comment: Electronically Signed By: Marisela HERRERA, Elan Humphrey.nile\Date and Time Signed: 02/13/24 12:25 [id number] NoteHistory and Physical History of Present Illness [...] reviewed and are negative or noncontributory. Scoring Morna Fall Risk Score: 55 High (02/12/24) Physical [...] mg/dL High (02/12/24 17:15:00) POC Device SN: [id number] (02/12/24 17:15:00) POC User ID: [id number] (02/12/24 17:15:00) POC Username: POC Username (02/12/24 [...] a day (at bedti (more content not included)...[facility] CenterComment on above:Result Comment: Electronically Signed By: Marisela HERRERA, Elan Guzman\Date and Time Signed: 02/12/24 18:34 [id number] Evaluation + Plan note* Assessment & Plan Note - Mike Montes MD - 01/18/2024 9:04 AM EDTAssociated Problem(s): Cigarette smoker Counseled him on smoking cessation at length. He is willing to quit. [facility]08-15-2024 Miscellaneous Notes* Assessment & Plan [...] below-knee amputation. Will do it here at [place]. 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 Will do it here at [place]. [facility]08-15-20[facility] History of Present illness Narrative* [...] control exposed bone. The patient and his yoga instructor are sending him for below-knee amputation. [...] mg total) by mouth in the morning. Hybrid [employer] DELTaggstr PLUS LANCET 33 gauge misc Inject 1 strip under the skin in the morning and 1 strip before bedtime. LUMObackUCH ULTRA TEST strip 1 strip by other route every morning before breakfast. LUMObackUCH ULTRA2 METER misc 1 Unit by subconjunctival [...] Critical limb ischemia of right lower extremity ([facility]) Diabetes mellitus type 2, controlled [place] GERD (gastroesophageal reflux disease) Hyperlipidemia Hypertension Past Surgical History: Past Surgical History: Procedure Laterality Date AMPUTATION FOOT / TOE Right 09/29/2023 APPENDECTOMY BYPASS ARTERY FEMORAL POPLITEAL Right 11/08/2023 Performed by Mike Montes MD at [facility] SPECIAL PROC CARDIAC CATHETERIZATION x4 heart stents COLONOSCOPY PROSTATE SURGERY SPINE SURGERY Vascular Invasive Right lower extremity angiogram with intervention/stent Right 11/07/2023 Performed by Mike Montes MD at [facility] CARDIAC CATH LABS Social and Family History: [...] below-knee amputation. Will do it here at [place]. Myra was seen today for angioplasty rle follow up - procedure at [facility]. yolanda and critical limb ischemia of [...] you for your understanding. documented in this encounterLancaster Municipal HospitalRegulatoryBinder [id number] Instructions* Patient Instructions* Mike Montes MD - 01/18/2024 8:50 AM EDT Are You Ready To Kick The Habit? Free Tobacco Cessation Resources [facility] Services [facility] Tobacco [facility] Centers provide all employees with free tobacco cessation services that include: Counseling to understand nicotine addiction Education about medications that can help you successfully quit Assistance with developing a plan to quit Call to set up an individual appointment or find out when group classes will be held: [facility]: [phone] [facility]: [phone] [facility]: [phone] [facility]: [phone] Quit Smoking Action Plan and Resources [facility] offers an eight-week, online smoking cessation plan to all [facility] employees, regardless of whether [place] is your medical insurance provider. Go to www.[email or web address].org/employeewellness and click the Health Risk Assessment and Resources link to get started. In the [employer] menu, click Action Plans instead of Health Risk Assessment to access the Quit Smoking Action Plan. Additional smoking cessation resources are also available to all [facility] employees on the [employer] web page at www.[employer]/quitsmoking. [place] Tobacco Cessation Program If [place] is your medical insurance provider, there are more free resources available to you, including: No copays or deductibles on local tobacco cessation counseling services to help you quit Prescription assistance for tobacco cessation medications to help you quit For details about the tobacco cessation program available to [place] members, go to www.Audience.fm.One Block Off the Grid (1BOG) (Search: Tobacco Cessation Program). [place] Tobacco Quit Line 5-973-BVMF-NOW ( ) is a toll-free, telephonic service that helps [place] residents quit smoking and using tobacco. It is staffed by experts who tailor a quit plan for you and provide you with advice. [place] Tobacco Quit Line 7-889-BWBD-NOW ( ) is a toll-free, telephonic service that helps [place] residents quit smoking and using tobacco. It is staffed by experts who tailor a quit plan for you and provide you with advice. Two weeks of nicotine replacement therapy may be provided at no charge, if needed. Additional Resources These national organizations also offer free information and resources to help you quit tobacco: [place] [employer]--www.cancer.org/healthy/stayawayfromtobacco [place] [employer]--www.heart.org (Search: Quit Smoking) Centers for Disease Control and Prevention--www.cdc.gov/tobacco [place] [employer]--www.lungusa.org documented in this encounterUpper Valley Medical Center08-05-2024 NotePatient Education - Text [place], [place] Cardiovascular PCI DISCHARGE INSTRUCTIONS Diet: ? [...] for any reason without talking to your product examiner Site Care: ? Do not remove dressing [...] you are interested in smoking cessation, contact [facility] at [phone], ext. [phone]. ? In the event you are unable to reach your physician, please call Rosa at [phone] andthe pipeline operator will assist you. Seek Medicare Care [...] your urine or stool ? Black tarry stoolsSt. Mary'S Medical Center08-05-2024 NoteProgress Note-Physician Procedure Airway Assessment: [...] ad Senait Vital Signs Vital Signs Vital SignsSt. 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 He has some residual tibial occlusive disease. I discussed with him doing right lower extremity angiogram and intervention. Will do this close to home at [facility]. 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 He has some residual tibial occlusive disease. I discussed with him doing right lower extremity angiogram and intervention. Will do this close to home at [facility]. documented in this encounterUpper [facility] History of Present illness Narrative* [...] Critical limb ischemia of right lower extremity ([facility]-HCC) Diabetes mellitus type 2, controlled ([facility]) GERD (gastroesophageal reflux disease) Hyperlipidemia Hypertension Past Surgical History: Past Surgical History: Procedure Laterality Date AMPUTATION FOOT / TOE Right 09/29/2023 APPENDECTOMY BYPASS ARTERY FEMORAL POPLITEAL Right 11/08/2023 Performed by Mike Montes MD at [facility] SPECIAL PROC CARDIAC CATHETERIZATION x4 heart stents COLONOSCOPY PROSTATE SURGERY SPINE SURGERY Vascular Invasive Right lower extremity angiogram with intervention/stent Right 11/07/2023 Performed by Mike Montes MD at [facility] CARDIAC CATH LABS Social and Family History: [...] Will do this close to home at [facility]. 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 documented in this encounterUpper [facility] Center06-[facility]24 History of Present illness Narrative* Guero Tam, - 11/30/2023 11:10 PM EDT Patient Name: Myra Pickard Date of : 1965 Date of Service: 11/30/2023 Facility: [facility] Type of Visit: Skilled Visit Subjective Myra [...] Exam Vitals reviewed. Exam conducted with a planting machine operator present (). Constitutional: General: He is not [...] ischemia of right lower extremity with gangrene ([facility]) 2. 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 ([facility]) 3. Delayed surgical wound healing of foot amputation stump ([facility]) 4. Other abnormalities of gait and mobility Continue therapy to reach MMI. Ok to discharge on Monday. F/U with PCP within 2 weeks and specialists as directed. I recommended he stay on Trulicity and stop Januvia. He will discuss this with his PCP. All medications reviewed and are medically necessary. ELECTRONICALLY SIGNED BY: Guero Tam DO documented in this encounterUpper Valley Medical Center06-27-2024 Evaluation + Plan note* Assessment & Plan Note - Mike Montes MD - 11/30/2023 9:19 AM EDT Associated Problem(s): Cigarette smoker motivated to quit Counseled on smoking cessation for at least 3 minutes [facility]06-[facility]24 Miscellaneous Notes* Assessment & Plan Note - Mike Montes MD - 11/30/2023 9:19 AM EDTAssociated Problem(s): Cigarette smoker motivated to quit Counseled on smoking cessation for at least 3 minutes documented in this encounterUpper Valley Medical Center06-27-2024 History of Present illness Narrative* [...] of right lower extremity with gangrene (CMS-HCC) Cigarette smoker motivated to quit Plan Plan [...] some residual tibial disease. Mike Montes MD, GB documented in this encounterUpper Valley Medical Center06-27-2024 Instructions* Patient Instructions* Mike Montes MD - 11/30/2023 8:50 AM EDT Are You Ready To Kick The Habit? Free Tobacco Cessation Resources [facility] Tobacco Treatment Center Services [facility] Tobacco Treatment Centers provide all employees with free tobacco cessation services that include: Counseling to understand nicotine addiction Education about medications that can help you successfully quit Assistance with developing a plan to quit Call to set up an individual appointment or find out when group classes will be held: [facility]: [phone] [facility]: [phone] [facility]: [phone] [facility]: [phone] Quit Smoking Action Plan and Resources [facility] offers an eight-week, online smoking cessation plan to all [facility] employees, regardless of whether [place] is your medical insurance provider. Go to www.Layer3 TV.[employer]/employeewellness and click the Health Risk Assessment and Resources link to get started. In the Xpugs6Gmitom menu, click Action Plans instead of Health Risk Assessment to access the Quit Smoking Action Plan. Additional smoking cessation resources are also available to all [facility] employees on the Okvnh1Pxrbaf web page at www.[employer]/quitsmoking. [place] Tobacco Cessation Program If [place] is your medical insurance provider, there are more free resources available to you, including: No copays or deductibles on local tobacco cessation counseling services to help you quit Prescription assistance for tobacco cessation medications to help you quit For details about the tobacco cessation program available to [place] members, go to www.[employer] (Search: Tobacco Cessation Program). [place] Tobacco Quit Line 7-718-FLEC-NOW ( ) is a toll-free, telephonic service that helps [place] residents quit smoking and using tobacco. It is staffed by experts who tailor a quit plan for you and provide you with advice. [place] Tobacco Quit Line 9-619-MYHJ-NOW ( ) is a toll-free, telephonic service that helps [place] residents quit smoking and using tobacco. It is staffed by experts who tailor a quit plan for you and provide you with advice. Two weeks of nicotine replacement therapy may be provided at no charge, if needed. Additional Resources These national organizations also offer free information and resources to help you quit tobacco: [place] Cancer Society--www.cancer.org/healthy/stayawayfromtobacco [place] Heart Association--www.heart.org (Search: Quit Smoking) Centers for Disease Control and Prevention--www.cdc.gov/tobacco [place] Lung Association--www.lungusa.org documented in this [facility], ColumbiaRegulatoryBinder [id number] History of Present illness Narrative* Guero Tam, DO - 11/24/2023 6:57 PM EDT Patient Name: Myra Pickard Date of : 1965 Date of Service: 11/24/2023 Facility: [facility] Type of Visit: Skilled Visit Subjective Myra Pickard is a 58 y.o. male seen today at [facility] facility for [facility] visit. Myra is in therapy. He is hoping to be allowed to wt bear on his right foot. His called the yoga instructor to ask to be allowed to [...] Exam Vitals reviewed. Exam conducted with a planting machine operator present (). Constitutional: General: He is not [...] Status post partial amputation of right foot ([facility]) 2. Other abnormalities of gait and mobility 3. Leg edema 4. Primary hypertension 5. Hypotension due to drugs 6. Critical limb ischemia of right lower extremity with gangrene ([facility]) 7. Diabetic neuropathy His leg edema is [...] BY: Guero Tam DO documented in this encounterLancaster Municipal HospitalFanchimp [facility]cl[facility] [id number] Evaluation + Plan note Future Scheduled Tests Radiology* US PVR Lower EXT Complete Bilat 11/20/23 [facility] 06-07-2024 Miscellaneous Notes* Telephone Encounter - Ashley Colon - 11/10/2023 10:05 AM EDT LM for patient's to call back with her Date of so I can update his billing info. documented in this encounterLancaster Municipal HospitalFanchimp Mclaren Central [id number] Telephone encounter Note* Telephone Encounter - Ashley Colon - 11/10/2023 10:05 AM EDT LM for patient's to call back with her Date of so I can update his billing info. [employer] Cognotion [id number] History of Present illness Narrative* Guero Tam, DO - 11/07/2023 11:59 PM EDT Patient Name: Myra Pickard Date of : 1965 Date of Service: 11/07/2023 Facility: [facility] Type of Visit: Skilled Visit Subjective Myra [...] Assessment / Plan 1. Peripheral arterial disease (CMS-HCC) 2. Delayed surgical wound healing of foot amputation stump (CMS-HCC) 3. Other abnormalities of gait and mobility 4. Status post partial amputation of right foot [place] 5. Pressure ulcer of right ankle, stage 3 ([facility] 6. Type 2 diabetes mellitus with stage [...] BY: Guero Tam DO documented in this encounterBrightlook HospitalWireless Ronin Technologies05-31-2024 History of Present illness Narrative* Guero Tam DO - 11/03/2023 11:59 PM EDT Patient Name: Myra Pickard Date of : 1965 Date of Service: 11/03/2023 Facility: [facility] Type of Visit: Skilled Visit Subjective Myra [...] Exam Vitals reviewed. Exam conducted with a planting machine operator present (). Constitutional: General: He is not [...] Status post partial amputation of right foot ([facility]-H[facility]) 2. Pressure ulcer of right ankle, stage 3 ([facility]-H[facility]) 3. Other abnormalities of gait and mobility 4. Delayed surgical wound healing of foot amputation stump ([facility]) Await results of CT angiogram. May need vascular intervention. Continue therapy to reach maximum improvement. Continue other orders as directed. ELECTRONICALLY SIGNED BY: Guero Tam DO documented in this encounterUpper Valley Medical Center05-22-2024 History of Present illness Narrative* Guero Tam DO - 10/25/2023 11:59 PM EDT Patient Name: Myra Pickard Date of : 1965 Date of Service: 10/25/2023 Facility: [facility] Type of Visit: Skilled Visit Subjective Myra [...] Exam Vitals reviewed. Exam conducted with a planting machine operator present (Lefty Rosas [facility]). Constitutional: General: He is not [...] Status post partial amputation of right foot ([facility]-H[facility]) 2. Osteomyelitis of right foot, unspecified type ([facility]) 3. Muscle weakness (generalized) 4. Other abnormalities of gait and mobility 5. Chronic obstructive pulmonary disease, unspecified COPD type ([facility]) 6. Peripheral arterial disease I'll review medication [...] BY: Guero Tam DO documented in this encounterUpper Valley Medical Center05-21-2024 NoteSinus tachycardia Rightward axis Poor anterior R wave progression QTc 481 [id number] History of Present illness Narrative* Raulito Inman [...] my direction and personally dictated by me. Iharaceli reviewed the chart and agree that the record accurately reflects my personal performance of the history, physical exam, discussion and plan. documented in this encounterUK Healthcare Work Phone: 1(601) 449-715305-21-2024 Instructions* Patient Instructions* Rosemary Benavides LPN - [...] from a cardiac standpoint documented in this encounterUK Healthcare Work Phone: 1(287) 416-726605-15-2024 Miscellaneous Notes* Telephone Encounter - Cameron Mg LPN - 10/18/2023 9:30 AM EDT Physician requested stat testing, patient unable to complete testing in [place] area> Spoke to Dr. Montes, states patient can have testing and f/u at [facility]. [place] office staff aware. Faxed orders to [facility] at [phone].Patient unable to complete testing at times that were offered, requested a Monday or Monday. documented in this encounterUpper Valley Medical Center05-15-2024 Telephone encounter Note* Telephone Encounter - Cameron Mg LPN - 10/18/2023 9:30 AM EDT Physician requested stat testing, patient unable to complete testing in [place] area> Spoke to Dr. Montes, states patient can have testing and f/u at [place] office. [place] office staff aware. Faxed orders to [facility] at [phone].Patient unable to complete testing at times that were offered, requested a Monday or Monday. [facility] Evaluation + Plan note* Assessment & Plan Note - Mike Montes MD - 10/18/2023 8:52 AM EDTAssociated Problem(s): Heavy tobacco smoker >10 cigarettes per day Counseled in length willing to quit. [facility] Miscellaneous Notes* Assessment & Plan [...] AM Modules accepted: Orders documented in this encounterUpper Valley Medical Center05-15-2024 Evaluation + Plan note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) PVR and CTA abdomen and plevis with runoff [facility] History of Present illness Narrative* [...] to get some of his testing from in [place]. I looked at a stress test andbasic [...] circulation - [facility] [place], [place] Heavy tobacco smoker >10 cigarettes per day Mike Montes MD, GB, RPVI, FSVS, FACS [facility] This note was created with the assistance of a speech recognition program. While intending to generate a timely document that accurately reflects the content of the visit, no guarantee can be provided that every grammatical or spelling mistake has been or will be identified or corrected. Thank you for your understanding. documented in this encounterLancaster Municipal HospitalRegulatoryBinder [id number] Instructions* Patient Instructions* Mike Montes MD - 10/18/2023 8:30 AM EDT Are You Ready To Kick The Habit? Free Tobacco Cessation Resources [facility] Tobacco Treatment Center Services [facility] Tobacco Treatment Centers provide all employees with free tobacco cessation services that include: Counseling to understand nicotine addiction Education about medications that can help you successfully quit Assistance with developing a plan to quit Call to set up an individual appointment or find out when group classes will be held: [facility]: [phone] [facility]: [phone] [facility]: [phone] [facility]: [phone] Quit Smoking Action Plan and Resources [facility] offers an eight-week, online smoking cessation plan to all [facility] employees, regardless of whether [place] is your medical insurance provider. Go to www.[email or web address] TV.org/employeewellness and click the Health Risk Assessment and Resources link to get started. In the SmartCrowdz menu, click Action Plans instead of Health Risk Assessment to access the Quit Smoking Action Plan. Additional smoking cessation resources are also available to all [facility] employees on the Uiptl4Rpjwhu web page at www.[employer]/quitsmoking. [place] Tobacco Cessation Program If [place] is your medical insurance provider, there are more free resources available to you, including: No copays or deductibles on local tobacco cessation counseling services to help you quit Prescription assistance for tobacco cessation medications to help you quit For details about the tobacco cessation program available to [place] members, go to www.Audience.fm.One Block Off the Grid (1BOG) (Search: Tobacco Cessation Program). [place] Tobacco Quit Line 3-951-WXUX-NOW ( ) is a toll-free, telephonic service that helps [place] residents quit smoking and using tobacco. It is staffed by experts who tailor a quit plan for you and provide you with advice. [place] Tobacco Quit Line 8-681-ZDPV-NOW ( ) is a toll-free, telephonic service that helps [place] residents quit smoking and using tobacco. It is staffed by experts who tailor a quit plan for you and provide you with advice. Two weeks of nicotine replacement therapy may be provided at no charge, if needed. Additional Resources These national organizations also offer free information and resources to help you quit tobacco: [place] Cancer Society--www.cancer.org/healthy/stayawayfromtobacco [place] Heart Association--www.heart.org (Search: Quit Smoking) Centers for Disease Control and Prevention--www.cdc.gov/tobacco [place] Lung Association--www.lungusa.org documented in this encounterLancaster Municipal HospitalFanchimp [facility] [id number] Note* Addendum Note - Mike Montes MD - 10/18/2023 8:30 AM EDTAddended by: MIKE MONTES on: 10/18/2023 09:00 AM Modules accepted: Orders [facility] Cognotion [id number] History of Present illness Narrative* Guero Tam DO - 10/17/2023 11:59 PM EDT Patient Name: Myra Pickard Date of : 1965 Date of Service: 10/17/2023 Facility: [facility] Type of Visit: Skilled Visit Subjective Myra [...] 97% Physical Exam Exam conducted with a planting machine operator present (Lefty Ralph MSIII). Constitutional: General: He is not in [...] BY: Guero Tam DO documented in this encounterUpper Valley Medical Center05-07-2024 History of Present illness Narrative* Guero Tam DO - 10/10/2023 11:33 PM EDT Patient Name: Myra Pickard Date of : 1965 Date of Service: 10/10/2023 Facility: [facility] Type of Visit: Skilled Visit Subjective Myra [...] osteomyelitis. He has an appointment with the yoga instructor on Monday. He said his colonoscopy [...] 98% Physical Exam Exam conducted with a planting machine operator present (Lefty CORREAII). Constitutional: General: He is [...] 2. Other acute osteomyelitis of right foot ([facility]) 3. Status post partial amputation of right foot ([facility]) 4. Chronic obstructive pulmonary disease, unspecified COPD type ([facility]) 5. Abscess of right foot Will try immodium 2mg 2 po Q6 hrs prn for diarrhea. May need to check for C. dif Continue therapy. F/U with yoga instructor on Monday. All medications reviewed and are medically necessary. May need to adjust diabetic medications in future. ELECTRONICALLY SIGNED BY: Guero Tam DO documented in this encounterBrightlook HospitalWireless Ronin Technologies05-03-2024 History of Present illness Narrative* Guero Tam DO - 10/06/2023 4:49 PM EDT Patient Name: Myra Pickard Date of : 1965 Date of Service: 10/06/2023 Facility: [facility] Type of Visit: Admission H&P Subjective Myra Pickard is a 58 y.o. male seen today at [facility] facility for admission H&P. Myra presents to [facility] for therapies following hospitalization for sepsis due [...] 96% Physical Exam Exam conducted with a planting machine operator present ( present). Constitutional: General: He is [...] [place] 4. Atherosclerosis of [place] coronary artery of [place] heart without angina pectoris 5. Bacterial sepsis [place] [facility] for therapies. Full code. Continue medications from hospital. F/U with specialists as directed. Good rehab potential. Planning on discharge to home when able. ELECTRONICALLY SIGNED BY: Guero Tam DO documented in this encounterBrightlook HospitalChumby [id number] Hospital Discharge instructions Follow Up Care 07/13/2023 12:04:02 With:SOLEDAD HERRERA, Yeyo Blum, URL Address: [address] [place] [id number]- When: Unknown [facility] 01-22-2024 Evaluation note* Encounter Date Diagnosis Assessment Notes Treatment Notes Treatment Clinical Notes Jun, Hyperlipidemia (ICD-10 - E78.5) [facility] Other 12-29-2023 Hospital Discharge instructions Patient Education [...] urethra. Follow these instructions at home: Take qhlb-oig-bpgzxqp and prescription medicines only as told by [...] provider. Document Revised: 12/08/2021 Document Reviewed: 12/08/2021 [employer] Patient Education 2022 [employer] Education. Follow Up Care 06/01/2023 14:05:36 With:SOLEDAD HERRERA, Yeyo Blum, URL Address: [address] [place], [place] [id number]- When: Unknown [facility] 12-12-2023 Evaluation note* Encounter Date Diagnosis Assessment Notes Treatment Notes Treatment Clinical Notes May, Type 2 diabetes bobby itus with circulatory disorder (ICD-10 - E11.59) [facility] Other 11-24-2023 Evaluation note* Encounter Date Diagnosis Assessment Notes Treatment Notes Treatment Clinical Notes Apr, Diabetic nephropathy (ICD-10 - E 11.21) [facility] Other 11-07-2023 Evaluation note* Encounter Date Diagnosis Assessment Notes Treatment Notes Treatment Clinical Notes Apr, Left arm pain (ICD-10 - M79.602) [facility] Other 11-02-2023 Evaluation note* Encounter Date Diagnosis [...] and to have his surgery as scheduled. [facility] Other 10-24-2023 Evaluation note* Encounter Date Diagnosis Assessment Notes Treatment Notes Treatment Clinical Notes Mar, Type 2 diabetes bobby itus with circulatory disorder (ICD-10 - E11.59) Mar,therosclerotic heart disease of [place] coronary artery without angina pectoris (ICD-10 - I25.10) [facility] Other 10-11-2023 Evaluation note* Encounter Date Diagnosis Assessment Notes Treatment Notes Treatment Clinical Notes Mar, Type 2 diabetes bboby itus with circulatory disorder (ICD-10 - E11.59) [...] he not wait as long to go [facility] if something like this were to happen in the future as states she had to have nurses from her work place come assess him and talk him into going. He and voiced understanding. Mar,UTI (urinary tract infection) (ICD-10 - N39.0) No records available as of yet from [facility]. He was found to have [...] to continue to montior this at home. [facility] Other 10-09-2023 Note [id number] 02-14-2023 Hospital Discharge instructions Patient Education [...] including vitamins, herbs, eye drops, creams, and bnwt-wyz-bramtbb medicines. Any problems you or family members [...] provider tells you to take them. Taking qmzg-lhs-tezdagw medicines, vitamins, herbs, and supplements. Surgery safety [...] provider. Document Revised: 02/15/2022 Document Reviewed: 02/15/2022 [employer] Patient Education 2022 [employer] [facility] Hospital Discharge instructions Patient Education [...] including vitamins, herbs, eye drops, creams, and kgeq-mgi-omdaeav medicines. ?Whether you are or may be [...] provider. Document Revised: 02/02/2022 Document Reviewed: 12/25/2020 [employer] Patient Education 2022 [employer] Education. 01/30/2023 11:22:30 Cystoscopy Cystoscopy Cystoscopy is a [...] including vitamins, herbs, eye drops, creams, and cxqn-hwa-zqltfji medicines. Any problems you or family members [...] provider tells you to take them. Taking duva-guo-tkagxug medicines, vitamins, herbs, and supplements. Tests You [...] Follow these instructions at home: Medicines Take srhc-wzi-fiyvmgy and prescription medicines only as told by [...] provider. Document Revised: 02/02/2022 Document Reviewed: 01/01/2021 [employer] Patient Education 2022 [employer] Education. Follow Up Care 11/23/2022 13:02:56 With:SOLEDAD HERRERA, Yeyo Blum, URL Address: [facility] [address], [place] [phone] When: Unknown Comments:sched cysto/uros [facility] 08-15-2023 Evaluation note* Encounter Date Diagnosis Assessment Notes Treatment Notes Treatment Clinical Notes Jan, Diabetic nephropathy (ICD-10 - E 11.21) [facility] Other 06-29-2023 Evaluation note* Encounter Date Diagnosis [...] a new referral to be seen by Vlaerie Daly cancelling two new pt appointments. His [...] generated and reviewed. Nov,therosclerotic heart disease of [place] coronary artery without angina pectoris (ICD-10 - I25.10) Encouraged patient to follow with Cardiology as scheduled. [facility] Other 06-21-2023 Hospital Discharge instructions Patient Education [...] provider. Document Revised: 08/11/2021 Document Reviewed: 05/07/2021 [employer] Patient Education 2021 [employer]. Follow Up Care 09/14/2022 14:23:26 With:SOLEDAD HERRERA, Yeyo Blum, URL Address: [facility] [address], [place] [address]- When: Unknown [facility] 05-05-2023 Evaluation note* Encounter Date Diagnosis Assessment Notes Treatment Notes Treatment Clinical Notes October, Erectile dysfunction , unspecified erectile dysfunction type (ICD-10 - N52.9) [facility] Other 04-19-2023 Evaluation note* Encounter Date Diagnosis Assessment Notes Treatment Notes Treatment Clinical Notes Sep, Type 2 diabetes bobby itus with circulatory disorder (ICD-10 - E11.59) [facility] Other 04-12-2023 Evaluation note* Encounter Date Diagnosis Assessment Notes Treatment Notes Treatment Clinical Notes Sep, Atherosclerotic hear t disease of [place] coronary artery without angina pectoris (ICD-10 - I25.10) Sep,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) [facility] Other 03-20-2023 Evaluation note* Encounter Date Diagnosis Assessment Notes Treatment Notes Treatment Clinical Notes Aug, Diabetic nephropathy (ICD-10 - E 11.21) [facility] Other 03-03-2023 Evaluation note* Encounter Date Diagnosis Assessment Notes Treatment Notes Treatment Clinical Notes Aug, Pain in right leg (ICD-10 - M79. 604) [facility] Other 03-02-2023 Evaluation note* Encounter Date Diagnosis Assessment Notes Treatment Notes Treatment Clinical Notes Aug, Pain in right leg (ICD-10 - M79. 604) [facility] Other 02-20-2023 Evaluation note* Encounter Date Diagnosis Assessment Notes Treatment Notes Treatment Clinical Notes Jul, Intractable episodic headache, unspecified headache type (ICD-10 - R51.9) [facility] Other 02-14-2023 Evaluation note* Encounter Date Diagnosis Assessment Notes Treatment Notes Treatment Clinical Notes Jul, Acute intractable he adache, unspecified headache type (ICD-10 - R51.9) [facility] Other 02-08-2023 Evaluation note* Encounter Date Diagnosis Assessment Notes Treatment Notes Treatment Clinical Notes Jul, Headache (ICD-10 - R51.9) [facility] Other 01-30-2023 Evaluation note* Encounter Date Diagnosis [...] medication and we will continue to monitor. [facility] Other 12-21-2022 Evaluation note* Encounter Date Diagnosis Assessment Notes Treatment Notes Treatment Clinical Notes May, Diabetic nephropathy (ICD-10 - E 11.21) [facility] Other 11-21-2022 Evaluation note* Encounter Date Diagnosis Assessment Notes Treatment Notes Treatment Clinical Notes Apr, Diabetic nephropathy (ICD-10 - E 11.21) [facility] Other 11-15-2022 Evaluation note* Encounter Date Diagnosis Assessment Notes Treatment Notes Treatment Clinical Notes Apr, Pain in right leg (ICD-10 - M79. 604) [facility] Other 10-18-2022 Evaluation note* Encounter Date Diagnosis Assessment Notes Treatment Notes Treatment Clinical Notes Mar, Diabetic nephropathy (ICD-10 - E 11.21) [facility] Other 09-13-2022 Evaluation note* Encounter Date Diagnosis Assessment Notes Treatment Notes Treatment Clinical Notes Feb, Hypertensive chronic kidney disease with stage 1 through stage 4 chronic kidney disease, or unspecified chronic kidney disease (ICD-10 - I12.9) [employer] [place] [employer] Other 09-13-2022 Evaluation note* Encounter Date Diagnosis [...] Fagan as scheduled. 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 Feb,ain in right leg (ICD-10 [...] Noted upon review of blood work results. [facility] Other 08-19-2022 Evaluation note* Encounter Date Diagnosis Assessment Notes Treatment Notes Treatment Clinical Notes Jan, Diabetic nephropathy (ICD-10 - E 11.21) [facility] Other 08-17-2022 Evaluation note* Encounter Date Diagnosis Assessment Notes Treatment Notes Treatment Clinical Notes Jan, Diabetic nephropathy (ICD-10 - E 11.21) [facility] Other 07-21-2022 Evaluation note* Encounter Date Diagnosis Assessment Notes Treatment Notes Treatment Clinical Notes Dec, Diabetic nephropathy (ICD-10 - E 11.21) [facility] Other 06-22-2022 Evaluation note* Encounter Date Diagnosis Assessment Notes Treatment Notes Treatment Clinical Notes Nov, Diabetic nephropathy (ICD-10 - E 11.21) [facility] Other 05-23-2022 Evaluation note* Encounter Date Diagnosis Assessment Notes Treatment Notes Treatment Clinical Notes October, Diabetic nephropathy (ICD-10 - E 11.21) [facility] Other 05-17-2022 Evaluation note* Encounter Date Diagnosis [...] to attenuate CKD progression. Patient already on [id number] mg p.o. daily. Patient has minimal proteinuria. 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 Inman. For this October,therHe did quit smoking since July 2020 [facility] Other 05-16-2022 Evaluation note* Encounter Date Diagnosis Assessment Notes Treatment Notes Treatment Clinical Notes October, Hypertensive chronic kidney disease with stage 1 through stage 4 chronic kidney disease, or unspecified chronic kidney disease (ICD-10 - I12.9) October,tage 3 chronic kidney disease, unspecified whether stage 3a or 3b CKD (ICD-10 - N18.30) [facility] Other 05-06-2022 Evaluation note* Encounter Date Diagnosis Assessment Notes Treatment Notes Treatment Clinical Notes October, Pain in right leg (ICD-10 - M79. 604) October,ain in left leg (ICD-10 - M79.605) [facility] Other 04-20-2022 Evaluation note* Encounter Date Diagnosis Assessment Notes Treatment Notes Treatment Clinical Notes Sep, Diabetic nephropathy (ICD-10 - E 11.21) [facility] Other 04-19-2022 Evaluation note* Encounter Date Diagnosis Assessment Notes Treatment Notes Treatment Clinical Notes Sep, Anxiety (ICD-10 - F41.9) Sep,Hypertensive chronic kidney disease with stage 1 through stage 4 chronic kidney disease, or unspecified chronic kidney disease (ICD-10 - I12.9) [facility] Other 03-07-2022 Evaluation note* Encounter Date Diagnosis Assessment Notes Treatment Notes Treatment Clinical Notes Aug, Anxiety (ICD-10 - F41.9) [facility] Other 02-22-2022 Evaluation note* Encounter Date Diagnosis [...] 12 pound weight loss from last visit. [facility] Other 01-19-2022 Evaluation note* Encounter Date Diagnosis Assessment Notes Treatment Notes Treatment Clinical Notes Jun, Diabetic nephropathy (ICD-10 - E 11.21) [facility] Other Consult note Author Amina Fagan [facility] HospitalNote Date/TimeMarch 2024 2:[place] [address] Nephrology Consult Note Signed Patient: Myra Pickard SR MR#: [id number] : 1965 Acct:[id number] Age/Sex: 59 / M Adm Date: 5 Loc: Room: [address] [place] [address] Type: ADM IN Attending Dr: Kevon Viera [...] mass Atrial fibrillation Atherosclerotic heart disease of [place] coronary artery with unspecified angina pectoris Anxiety Hx of exercise stress test Family history of premature CAD Reports mother had quadruple bypass at age of 45 Myocardial infarction mild Fibromyalgia Chronic back pain Sleep apnea Neuropathy Cataract Peripheral artery disease Hyperlipidemia Diabetes Hypertension Surgical History History of below-knee amputation of right lower extremity 02/2024 [facility] by Dr. Simon Hernández Vascular History of [...] 07/12/23[History Confirmed 08/11/24] flash glucose scanning reader (HemosphereStyle Jigar 2 [place]) #1 ea 12/28/23 [Rx Confirmed 08/11/24] flash [...] 32 gauge x /32 (Comfort EZ Pen [place]) #100 ea 04/15/24 [Rx Confirmed 08/11/24] hydroxyzine [...] 75 Mg Tablet) 75 mg PO DAILY [facility] Stop: [...] Admin: 08/11/24 13:40 Dose: Not Given Ipratropium [place]ola (Ipratropium [place]ola 0.5 Mg/2.5 Ml Vial.Neb) 0.5 mg INHALATION [...] Appearance Clear Urine pH 5.5 Ur Specific Perry 1.024 Urine Protein Negative Urine Glucose (UA) 500 H Urine Ketones Negative Urine Occult Blood Negative Urine Nitrite Negative Ur Leukocyte Esterase Negative Radiology Impressions Impressions - last 24 hours: Impressions Chest X-Ray 08/11/24 04:22 IMPRESSION: No acute process. Impression dictated by: Sudeep Lind M.D.08/11/2024 10:06 AM Dictation Location: [facility] 08/11/24 04:22 IMPRESSION: No acute [...] M.D.08/11/2024 10:06 AM Dictation Location: [place] [address] Any impression(s) listed above is documentation that [...] concern Documented By: Amina Fagan MD 08/11/24 9614 Signed By: <Electronically signed by Amina Fagan MD> 08/11/24 1414 [facility] Work Phone: [place] [address] Cardiology Consult Note Signed Patient: Myra Pickard SR MR#: [id number] : 1965 Acct:[id number] Age/Sex: 59 / M Adm Date: 5 Loc: Room: [address] [place] [address] Type: ADM INOo Attending Dr: Abdullahi Canchola DO Copies to: DO Pascale Guzman MD, [facility] Abdullahi Canchola, ~ Cardiology HPI History [...] post right below-knee amputation February 2024 in [place]. He has COPD followed by pulmonary medicine in [place]. His EKG showed no acute changes his [...] he gets seen first by his primary product examiner in the office, I emphasized to the [...] mass Atrial fibrillation Atherosclerotic heart disease of [place] coronary artery with unspecified angina pectoris Anxiety Hx of exercise stress test Family history of premature CAD Reports mother had quadruple bypass at age of 45 Myocardial infarction mild Fibromyalgia Chronic back pain Sleep apnea Neuropathy Cataract Peripheral artery disease Hyperlipidemia Diabetes Hypertension Surgical History History of below-knee amputation of right lower extremity 02/2024 [facility] by Dr. Simon Hernández Vascular History of [...] 07/12/23[History Confirmed 10/10/24] flash glucose scanning reader (Digital Harb[place]le Jigar 2 [place]) #1 ea 12/28/23 [Rx Confirmed 10/10/24] flash [...] 32 gauge x 32 (Comfort EZ Pen [place]) #100 ea 04/15/24 [Rx Confirmed 10/10/24] hydroxyzine [...] Lymph # (Auto) 2.0 2.0 (1.00-4.8) x10E3/uL [place] # (Auto) 0.8 0.9 H (0.0-0.8) x10E3/uL [...] RCA, nuclear stress test February 2024 in [place] was normal Plan: Continue aggressive risk factors modifications, tobacco cessation, dual antiplatelet therapy, high intensity statin Code(s): I25.10 - Atherosclerotic heart disease of [place] coronary artery without angina pectoris Documented By: Pascale Arnold MD, [facility] 5 0947 Signed By: 10/11/24 0956 [facility] Author João Powell [facility] March 06, 2024 4:23pmNote Date/TimeOct2023 3:58pm[place]ing[place] [address] Discharge Summary Signed Patient: Myra Pickard SR MR#: [id number] : 1965 Acct:[id number] Age/Sex: 58 / M Adm Date: 4 Loc: Room: [address] [place] [address]: João Powell MD Copies to: [...] diabeticneuropathy status post right BKA recently at [facility]. He presents today with episodes of lightheadedness [...] PRN (Reason: muscle spasm) insulin glargine [Basaglar MieshaPen U-100 Insulin] 100 unit/mL (3 mL) insulin [...] Instructions: As directed (DME) FreeStyle Jigar 2 [place] Misc See Rx Instructions .ROUTE Qty: 1 [...] % (Auto) N/A, Lymph % (Auto) N/A, [place] % (Auto) N/A, Eos % (Auto) N/A, Baso % (Auto) N/A, Nucleat RBC Rel Count N/A, Neut # (Auto) N/A, Lymph # (Auto) N/A, [place] # (Auto) N/A, Eos # (Auto) N/A, [...] <Electronically signed by João Powell MD> 03/06/24 4948 [facility] Work Phone: Discharge summary Author Kevon Viera [facility] Date/TimeMarch 2024 2:39pm[place] [address] Discharge Summary Signed Patient: Myra Pickard MR#: [id number] : 1965 Acct:[id number] Age/Sex: 59 / M Adm Date: 5 Loc: 3T Room: [address] [place] [address]: Kevon Viera MD Copies to: [...] (DME) pen needle, diabetic [Comfort EZ Pen [place]] 32 gauge x 5/32 needle See Rx [...] Instructions: As directed (DME) FreeStyle Jigar 2 [place] Misc See Rx Instructions .Route Qty: 1 [...] signed by Kevon Viera MD> 08/13/24 1439 [facility] Work Phone: [place] [address] Discharge Summary Signed Patient: Myra Pickard SR MR#: [id number] : 1965 Acct:[id number] Age/Sex: 59 / M Adm Date: 5 Loc: Room: [address] [place] [address]: Abdullahi Canchola DO Copies to: DO Abdullahi Guzman DO~ Providers Date of Discharge: 10/11/24 Discharging Provider: Abdullahi Canchola Primary Care Provider: Teresa Lynch Consults: 10/10/24 18:25 Consult to Cardiology Routine Comment: Consulting Provider: [facility], [facility] Reason For Exam: [...] (DME) pen needle, diabetic [Comfort EZ Pen [place]] 32 gauge x 5/32 needle See Rx [...] Instructions: As directed (DME) FreeStyle Jigar 2 [place] Misc See Rx Instructions .Route Qty: 1 0RF Rx Instructions: As directed Discontinued valsartan-hydrochlorothiazide [Diovan HCT] 160-12.5 mg tablet 1 tab PO DAILY Follow Up: [facility] [Outside] (Once Insurance [...] % (Auto) 58.3, Lymph % (Auto) 25.5, [place] % (Auto) 10.9, Eos % (Auto) 4.0, Baso % (Auto) 1.3, Nucleat RBC Rel Count 0.1, Neut # (Auto) 4.6, Lymph # (Auto) 2.0, [place] # (Auto) 0.9 H, Eos # (Auto) [...] Neut % (Auto) 61.8, Lymph % (Auto)23.4, [place] % (Auto) 9.5, Eos % (Auto) 4.0, Baso % (Auto) 1.3, Nucleat RBC Rel Count 0.2, Neut # (Auto) 5.3, Lymph # (Auto) 2.0, [place] # (Auto) 0.8, Eos # (Auto) 0.3, [...] 10/11/24 13 40 Signed By: 10/11/24 1358 [facility]Dis[facility] summary Author Abdullahi Canchola [facility] HospitalNote Date/TimeMay 2024 1:58pm[place]ing[place] [address] Discharge Summary Signed Patient: Myra Pickard SR MR#: [id number] : 1965 Acct:[id number] Age/Sex: 59 / M Adm Date: 5 Loc: Room: [address] [place] [address]: Abdullahi Canchola DO Copies to: DO Abdullahi Guzamn DO~ Providers Date of Discharge: 10/11/24 Discharging Provider: Abdullahi Canchola Primary Care Provider: Teresa Lynch Consults: 10/10/24 18:25 Consult to Cardiology Routine Comment: Consulting Provider: [facility], [facility] Reason For Exam: [...] (DME) pen needle, diabetic [Comfort EZ Pen [place]] 32 gauge x 5/32 needle See Rx [...] Instructions: As directed (DME) FreeStyle Jigar 2 [place] Misc See Rx Instructions .Route Qty: 1 0RF Rx Instructions: As directed Discontinued valsartan-hydrochlorothiazide [Diovan HCT] 160-12.5 mg tablet 1 tab PO DAILY Follow Up: [facility] [Outside] (Once Insurance approves outpatient Stress Test [...] % (Auto) 58.3, Lymph % (Auto) 25.5, [place] % (Auto) 10.9, Eos % (Auto) 4.0, Baso % (Auto) 1.3, Nucleat RBC Rel Count 0.1, Neut # (Auto) 4.6, Lymph # (Auto) 2.0, [place] # (Auto) 0.9 H, Eos # (Auto) [...] Neut % (Auto) 61.8, Lymph % (Auto)23.4, [place] % (Auto) 9.5, Eos % (Auto) 4.0, Baso % (Auto) 1.3, Nucleat RBC Rel Count 0.2, Neut # (Auto) 5.3, Lymph # (Auto) 2.0, [place] # (Auto) 0.8, Eos # (Auto) 0.3, [...] <Electronically signed by Abdullahi Canchola DO> 10/11/24 1101 [facility] Work Phone: Evaluation + Plan note Future Appointments Appointment Date:12/21/2022 11:00:00 AM Scheduled Provider: Location:[facility] Appointment Type:URO Nurse Visit Appointment Date:01/30/2023 10:30:00 AM Scheduled Provider[facility] Office Visit [facility] Evaluation + Plan note Future Appointments Appointment Date:01/30/2023 10:15:00 AM Scheduled Provider:Yeyo ROWE MD Location:[facility] Appointment Type:URO Office Visit [facility] Evaluation + Plan note Future Appointments Appointment Date:02/01/2023 10:00:00 AM Scheduled Provider: Location:[facility] Appointment Type:Urology CALL PAT FT Appointment Date:02/08/2023 09:00:00 AM Scheduled Provider: Location:[facility] Appointment Type:Urology FT Appointment Date:02/14/2023 09:15:00 AM Scheduled Provider: Location:[facility] Appointment Type:Urology FT [facility] evaluation + Plan note Future Appointments Appointment Date:02/14/2023 09:15:00 AM Scheduled Provider: Location:[facility]ments Appointment Date:03/20/2023 08:45:00 AM Scheduled Provider: Location:[facility] Appointment Type:URO Nurse Visit Appointment Date:04/05/2023 08:00:00 AM Scheduled Provider:Yeyo ROWE MD Location:[facility] [place] Appointment Type:[facility]O [facility] Future Appointments Appointment Date:05/03/2023 08:45:00 AM Scheduled Provider:Yeyo ROWE MD Location:[facility] [place] Appointment Type:URO Office Visit [facility] Evaluation + Plan note Future Appointments Appointment Date:07/03/2023 10:15:00 AM Scheduled Provider:Yeyo ROWE MD Location:[facility] Appointment Type:URO Office Visit [facility] evaluation + Plan note Future Appointments Appointment Date:10/23/2023 09:30:00 AM Scheduled Provider:[facility]es [facility] noteNo InformationNort [employer] Other Evaluation noteNo assessment information available [facility] Work Phone: evaluxhwlt note* Diagnosis History of PTCA Postsurgical percutaneous transluminal coronary angioplasty status Hyperlipidemia, unspecified hyperlipidemia type Encounter for pre-operative cardiovascular clearance Former smoker Personal history of tobacco use, presenting hazards to health documented in this encounter [facility] Work Phone: Evaluation note* Diagnosis Onset Date Resolution Status Anemia acuteAtrial fibrillationacuteChronic back painacuteCigarette nicotine dependence with nicotine-induced disorderacute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acuteGERD (gastroesophageal reflux disease)acute HyperlipidemiaacuteRestless legs syndromeacuteSyncopeacuteCAD (coronary artery disease)chronicChronic kidney diseasechronicDiabeteschronicHypertensionchronic [facility] Work Phone: evaluation note* Diagnosis Onset Date Resolution Status Anemia acuteAtrial fibrillationacuteChronic back painacuteCigarette nicotine dependence with nicotine-induced disorderacute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acuteGERD (gastroesophageal reflux disease)acute HyperlipidemiaacuteRestless legs syndromeacuteSyncopeacuteCAD (coronary artery disease)chronicChronic kidney diseasechronicDiabeteschronicHypertensionchronic Altered mental statusacuteHypothermiaacute [facility] Work Phone: Evaluation note* Diagnosis Onset Date Resolution Status Anemia acuteAtrial fibrillationacuteChronic back painacuteCigarette nicotine dependence with nicotine-induced disorderacute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acuteGERD (gastroesophageal reflux disease)acute HyperlipidemiaacuteRestless legs syndromeacuteSyncopeacuteCAD (coronary artery disease)chronicChronic kidney diseasechronicDiabeteschronicHypertensionchronic Altered mental statusacuteAnemiaacuteGERD (gastroesophageal reflux disease)acute HyperbilirubinemiaacuteHypothermiaacuteLFT elevationacuteRestless legs syndrome acuteSyncopeacute [facility] Work Phone: Evaluation note* Diagnosis Onset Date Resolution Status Anemia acuteAtrial fibrillationacuteChronic back painacuteCigarette nicotine dependence with nicotine-induced disorderacute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acuteGERD (gastroesophageal reflux disease)acute HyperlipidemiaacuteRestless legs syndromeacuteCAD (coronary artery disease) chronicChronic kidney diseasechronicDiabeteschronicHypertensionchronicSyncope resolvedAltered mental statusacuteAnemiaacuteGERD (gastroesophageal reflux disease)acuteLFT elevationacuteRestless legs syndromeacuteSyncoperesolved Abnormal finding on imagingacuteGERD (gastroesophageal reflux disease)acute [facility] Work Phone: Evaluation note* Diagnosis Onset Date Resolution Status Anemia acuteAtrial fibrillationacuteChronic back painacuteCigarette nicotine dependence with nicotine-induced disorderacute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acuteGERD (gastroesophageal reflux disease)acute HyperlipidemiaacuteRestless legs syndromeacuteCAD (coronary artery disease) chronicChronic kidney diseasechronicDiabeteschronicHypertensionchronicSyncope resolvedAltered mental statusacuteAnemiaacuteGERD (gastroesophageal reflux disease)acuteLFT elevationacuteRestless legs syndromeacuteSyncoperesolved Abnormal finding on imagingacuteGERD (gastroesophageal reflux disease)acute Diabetesacute [facility] Work Phone: Evaluation note* Diagnosis Shortness of breath documented in this encounter [facility] Work Phone: Evaluation note* Diagnosis Abscess of right foot- Primary Cellulitis and abscess of foot, except toes Status post partial amputation of right foot [place] Type 2 diabetes mellitus with stage 4 chronic kidney disease, without long-term current use of insulin ([facility] Atherosclerosis of [place] coronary artery of [place] heart without angina pectoris Bacterial sepsis ([facility] Bacteremia Other acute osteomyelitis of right foot ([facility] Chronic obstructive pulmonary disease, unspecified COPD type [...] [place] documented [facility]* Diagnosis Diarrhea, unspecified type- Primary Other acute osteomyelitis of right foot ([facility]) Status post partial amputation of right foot [...] [place] documented in [facility] encounter [facility]* Diagnosis Status post partial amputation of right foot ([facility] Primary Pressure ulcer of right ankle, stage 3 ([facility] Other abnormalities of gait and mobility Delayed surgical wound healing of foot amputation stump ([facility] [facility] documented [facility] encounter [facility]* Diagnosis 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 ([facility] Primary Poor circulation Unspecified circulatory system disorder Heavy tobacco smoker >10 cigarettes per day documented in this encounter [facility]* Diagnosis Status post partial amputation of right foot [place] [place] [place] Primary 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 ([facility] Type 2 diabetes mellitus with stage 4 chronic kidney disease, without long-term current use of insulin [place] documented [facility] encounter [facility]* Diagnosis Peripheral arterial disease [place] [place] [place] Primary Unspecified peripheral vascular disease Delayed surgical wound healing of foot amputation stump [place] [place] Other abnormalities of gait and mobility Status post partial amputation of right foot [place] [place] Pressure ulcer of right ankle, stage 3 ([facility] Type 2 diabetes mellitus with stage 4 chronic kidney disease, without long-term current use of insulin ([facility] [place] documented in this encounter [facility]* Diagnosis 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 ([facility] Primary Status post partial amputation of right foot ([facility] Primary Osteomyelitis of right foot, unspecified type ([facility]) Muscle weakness (generalized) Other abnormalities of gait and mobility Chronic obstructive pulmonary disease, unspecified COPD type ([facility] Peripheral arterial disease ([facility] Unspecified peripheral vascular disease 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 ([facility] documented in this encounter [facility]* Diagnosis Status post partial amputation of right foot ([facility] Primary Other abnormalities of gait and mobility Leg edema Edema Primary hypertension Unspecified essential hypertension Hypotension due to drugs Other iatrogenic hypotension 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 ([facility]) Diabetic polyneuropathy associated with type 2 diabetes mellitus ([facility] Diagnosis 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 ([facility] Primary Cigarette smoker motivated to quit documented in this encounter [facility]* Diagnosis 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 ([facility] Primary 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 ([facility]) Delayed surgical wound healing of foot amputation stump ([facility]) Other abnormalities of gait and mobility documented in this encounter [facility] System[facility]* Diagnosis 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 ([facility] Primary [facility] Diagnosis 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 ([facility] Primary Cigarette smoker Tobacco use disorder documented in this encounter [facility]* Diagnosis Diabetic polyneuropathy associated with type 2 diabetes mellitus ([facility] Primary Disorientation Other general symptoms Other abnormalities of gait and mobility Status post partial amputation of right foot ([facility]) Atherosclerosis of [place] coronary artery of [place] heart without angina pectoris Atrial fibrillation ([facility]) Primary hypertension Unspecified essential hypertension documented in this encounter [facility] System[facility]* Diagnosis Diabetic polyneuropathy associated with type 2 diabetes mellitus ([facility] Primary Encounter for orthopedic aftercare following surgical amputation Other abnormalities of gait and mobility Restless leg syndrome Restless legs syndrome (RLS) documented in this encounter [facility] System[facility]* Diagnosis 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 ([facility] Primary Poor circulation Unspecified circulatory system disorder Heavy tobacco smoker >10 cigarettes per day 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 ([facility] Primary Cigarette smoker motivated to quit 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 ([facility] [place] Primary Cigarette smoker Tobacco use disorder History of right below knee amputation ([facility] Primary documented in this encounter [facility]* Diagnosis Encounter for orthopedic aftercare following surgical amputation- Primary Cigarette smoker Tobacco use disorder Diabetic polyneuropathy associated with type 2 diabetes mellitus ([facility]) Other abnormalities of gait and mobility Muscle spasm Spasm of muscle documented in this encounter [facility]* Diagnosis PAD (peripheral artery disease) ([facility] [place] Primary Unspecified peripheral vascular disease documented in this encounter [facility]* Diagnosis Encounter for orthopedic aftercare following surgical amputation- Primary Other abnormalities of gait and mobility BPH with obstruction/lower urinary tract symptoms Diabetic polyneuropathy associated with type 2 diabetes mellitus ([facility] [place] Atherosclerosis of [place] coronary artery of [place] heart without angina pectoris Heart failure, unspecified [...] Muscle weakness (generalized) documented in this encounter [facility] System[facility]* Diagnosis Onset Date Resolution Status Admit Date Acute kidney injury superimposed on CKD acuteMarch 2024 5:39amDiabetesacuteMarch 2024 5:39amHypocalcemiaacute March 2024 5:39amLeft sided numbnessacuteMarch 2024 5:39amParesthesias acuteMarch 2024 5:39amHypertensionchronicMarch 2024 5:39am [facility] Work Phone: Evaluation note* Diagnosis Chest pain, unspecified type documented in this encounter [facility] Work Phone: Evaluation note* Diagnosis Critical limb [...] SystemHistory and physical note Author Mike Burleson [facility] Date/TimeNovember 2023 1:50pm [place] [address] Gastroenterology H&P Signed Patient: Myra Pickard SR MR#: [id number] : 1965 Acct:[id number] Age/Sex: 58 / M Adm Date: 4 Loc: Room: Type: [facility] Attending Dr: Mike Burleson MD Copies to: [...] <Electronically signed by Mike Burleson MD> 04/23/24 1350 [facility] Work Phone: History and physical note Author Marge Andino [facility] Date/TimeMarch 2024 7:24[place] [address] Hospitalist H&P Signed Patient: Myra Pickard SR MR#: [id number] : 1965 Acct:[id number] Age/Sex: 59 / M Adm Date: 5 Loc: Room: [address] [place] [address] Type: ADM IN Attending Dr: Kevno Viera MD Copies to: [...] mass Atrial fibrillation Atherosclerotic heart disease of [place] coronary artery with unspecified angina pectoris Anxiety Hx of exercise stress test Family history of premature CAD Reports mother had quadruple bypass at age of 45 Myocardial infarction mild Fibromyalgia Chronic back pain Sleep apnea Neuropathy Cataract Peripheral artery disease Hyperlipidemia Diabetes Hypertension Surgical History History of below-knee amputation of right lower extremity 02/2024 [facility] by [place]. Simon Hernández Vascular History of [...] 07/12/23[History Confirmed 08/11/24] flash glucose scanning reader (HemosphereStyle Jigar 2 [place]) #1 ea 12/28/23 [Rx Confirmed 08/11/24] flash [...] 32 gauge x /32 (Comfort EZ Pen [place]) #100 ea 04/15/24 [Rx Confirmed 08/11/24] hydroxyzine [...] 04:15 Lymph % (Auto) N/A 08/11/24 04:15 [place] % (Auto) N/A 08/11/24 04:15 Eos % (Auto) N/A 08/11/24 04:15 Baso % (Auto) N/A 08/11/24 04:15 Nucleat RBC Rel Count N/A 08/11/24 04:15 Neut # (Auto) N/A 08/11/24 04:15 Lymph # (Auto) N/A 08/11/24 04:15 [place] # (Auto) N/A 08/11/24 04:15 Eos # [...] signed by Marge Andino MD> 08/11/24 0724 [facility] Work Phone: History and physical noteKatherine [place] [phone] Hospitalist H&P Signed Patient: Myra Pickard SR MR#: [id number] : 1965 Acct:[id number] Age/Sex: 59 / M Adm Date: 5 Loc: Room: [address] [place] [address] Type: ADM INOo Attending Dr: Abdullahi Canchola [...] multivessel PCI'saround the time of 2013- at [facility]. He hasstent information cards that are [...] mass Atrial fibrillation Atherosclerotic heart disease of [place] coronary artery with unspecified angina pectoris Anxiety Hx of exercise stress test Family history of premature CAD Reports mother had quadruple bypass at age of 45 Myocardial infarction mild Fibromyalgia Chronic back pain Sleep apnea Neuropathy Cataract Peripheral artery disease Hyperlipidemia Diabetes Hypertension Surgical History History of below-knee amputation of right lower extremity 02/2024 [facility] by Dr. Simon Hernández Vascular History of [...] flash glucose scanning reader (FreeStyle Jigar 2 [place]) #1 ea 12/28/23 [Rx Confirmed 10/10/24] flash [...] 32 gauge x 5/32 (Comfort EZ Pen [place]) #100 ea 04/15/24 [Rx Confirmed 10/10/24] hydroxyzine [...] % (Auto) 23.4 % (.) 10/10/24 15:42 [place] % (Auto) 9.5 % (.) 10/10/24 15:42 Eos % (Auto) 4.0 % (.) 10/10/24 15:42 Baso % (Auto) 1.3 % (.) 10/10/24 15:42 Nucleat RBC Rel Count 0.2 /100 WBC (0-0.5) 10/10/24 15:42 Neut # (Auto) 5.3 x10E3/uL (1.8-7.7) 10/10/24 15:42 Lymph # (Auto) 2.0 x10E3/uL (1.00-4.8) 10/10/24 15:42 [place] # (Auto) 0.8 x10E3/uL (0.0-0.8) 10/10/24 15:42 [...] 10/10/24 18 33 Signed By: 10/11/24 1358 [facility] Author Abdullahi Canchola [facility] HospitalNote Date/TimeMay 2024 1:58pm[place] [address] Hospitalist H&P Signed Patient: Myra Pickard MR#: [id number] : 1965 Acct:[id number] Age/Sex: 59 / M Adm Date: 5 Loc: 4 Room: [address] [place] [address] Type: ADM INOo Attending Dr: Abdullahi Canchola [...] multivessel PCI'saround the time of 2013- at [facility]. He hasstent information cards that are [...] mass Atrial fibrillation Atherosclerotic heart disease of [place] coronary artery with unspecified angina pectoris Anxiety Hx of exercise stress test Family history of premature CAD Reports mother had quadruple bypass at age of 45 Myocardial infarction mild Fibromyalgia Chronic back pain Sleep apnea Neuropathy Cataract Peripheral artery disease Hyperlipidemia Diabetes Hypertension Surgical History History of below-knee amputation of right lower extremity 02/2024 [facility] by Dr. Simon Hernández Vascular History of [...] 07/12/23[History Confirmed 10/10/24] flash glucose scanning reader (HemosphereStyle Jigar 2 [place]) #1 ea 12/28/23 [Rx Confirmed 10/10/24] flash [...] 32 gauge x 5/32 (Comfort EZ Pen [place]) #100 ea 04/15/24 [Rx Confirmed 10/10/24] hydroxyzine [...] % (Auto) 23.4 % (.) 10/10/24 15:42 [place] % (Auto) 9.5 % (.) 10/10/24 15:42 Eos % (Auto) 4.0 % (.) 10/10/24 15:42 Baso % (Auto) 1.3 % (.) 10/10/24 15:42 Nucleat RBC Rel Count 0.2 /100 WBC (0-0.5) 10/10/24 15:42 Neut # (Auto) 5.3 x10E3/uL (1.8-7.7) 10/10/24 15:42 Lymph # (Auto) 2.0 x10E3/uL (1.00-4.8) 10/10/24 15:42 [place] # (Auto) 0.8 x10E3/uL (0.0-0.8) 10/10/24 15:42 [...] <Electronically signed by Abdullahi Canchola DO> 10/11/24 9280 [facility] Work Phone: History general Narrative - Reported* Type Description Date Medical History TYPE II DIABETES Medical HistoryCHRONIC BACK PAIN OLD INJURY,Medical HistoryHTNMedical History FIBROMYALGIAMedical [id number]-rmeuyi testMedical Historymild heart attack Medical Historyheart cathMedical Historycardiac stents placed 07/26/15 Dr. Bowie Medical Cupwqxv3910/10/2016 PSA (0.5)Medical HistoryPVDMedical HistoryAngioplasty & stenting LT LE 09/27/18 w/ Dr. SealsMedical History01/25/19 Colonoscopy Medical Historycigarette smokerMedical HistoryCLAUDICATIONSurgical History [id number] HistoryBIL CARPAL TUNNEL [id number] HistoryBIL CATARACT EXTRATION AND LENS [id number] Xxppikoetaevxhb1258Gmkqaowk HistoryCarpal Tunnel Release BilaterallySurgical HistoryLense Replacement Bilateral EyesSurgical Historyradio waves in L3,4,5 lower back LT side06/06/11 Surgical History3 heart stents placed11/2013Surgical Historyupper GI12/2013 Surgical Historyheart cath done07/2014Surgical HistoryHeart stent placed by Dr. Bowie at [facility]07/26/15urgical HistoryLeft knee arthroscopy11/2015Surgical History carpal tunnel release, right and left08/2016Surgical Historyhydrocele repair 08/2016Surgical Historycardiac cath [facility]04/02/18urgical HistoryLt LE iliac DSA, angioplasty & stenting09/27/2018Surgical HistoryLeft Angiogram with one stent - Dr. Boss07/2020Hospitalization HistoryDeep Depression, Anxiety; [facility] and hypercapnic respirtory failure11/11/16Hospitalization Historychest pain [facility] 04/02/18 [place] Other History of Present illness NarrativeReturns in [...] impact on blood pressure and diabetes were reviewedMP-[facility] 250 DO Work Phone: History of [...] regimen. He denies medication side effects. [facility] 600 DO Work Phone: History of [...] medication regimen. He denies medication side effects. [facility] 250 DO Work Phone: Hospital course Narrative No data available for this section [facility] Hospital Discharge instructions No data available for this section [facility] Hospital Discharge instructionsAmbulatory Orders* Referral to Pain Management Time Frame: 08/30/24, Location: [facility] Work Phone: InstructionsNot on filedocumented in this [...] for this section [facility] Progrtmv note Author Kevon Viera [facility] HospitalNote Date/TimeMarch 2024 1:[address]pm[address] [address] Progress Note Signed Patient: Myra Pickard SR MR#: [id number] : 1965 Acct:[id number] Age/Sex: 59 / M Adm Date: 5 Loc: Room: [address] [place] [address] Type: ADM IN Attending Dr: Kevon Viera [...] with patient, all question answered. Documented By: Keovn Viera MD 08/11/24 13 20 Signed By: <Electronically signed by Kevon Viera MD> 08/11/24 1321 [facility] Work Phone: Progress note Author Maurice Francis [facility] HospitalNote Date/TimeMarch 2024 11:47[place] [address] Nephrology Progress Note Signed Patient: Myra Pickard SR MR#: [id number] : 1965 Acct:[id number] Age/Sex: 59 / M Adm Date: 5 Loc: Room: [address] [place] [address] Type: ADM IN Attending Dr: Kevon Viera [...] Skin: No rashes , warm to touch [employer]: Awake,Alert, 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 Musculoskeletal: No swelling [...] Admin: 08/12/24 08:27 Dose: Not Given Ipratropium Anahola (Ipratropium An[place]ola 0.5 Mg/2.5 Ml Vial.Neb) 0.5 mg INHALATION [...] ACCESS H[facility]PITAL Stop: 02/07/25 08:59 Last Admin: 08/12/24 [...] [facility]HS [facility] Stop: 08/11/25 21:59 Last [...] signed by Maurice Francis MD> 08/12/24 1147 [facility] Work Phone: Progress note Author Kevon Viera [facility] HospitalNote Date/TimeMarch 2024 3:16[place] [address] Hospitalist Progress Note Signed Patient: Myra Pickard SR MR#: [id number] : 1965 Acct:[id number] Age/Sex: 59 / M Adm Date: 5 Loc: 3T Room: [address] [place] [address] Type: ADM IN Attending Dr: Kevon Viera [...] 1 units TID.WM.HS SATISH Administration Protocol Ipratropium Anahola 0.5 mg 08/11/24 08:00 08/12/24 12:31 Ipratropium [place]ola 0.5 Mg/2.5 Ml Vial.Neb INHALATION 08/11/25 07:59 [...] Cap.Er.24h PO 08/11/25 08:59 0.4 mg BID ASTISH Administration Tizanidine HCl 4 mg 08/11/24 22:00 [...] <Electronically signed by Kevon Viera MD> 08/12/24 8723 [facility] Work Phone: Progress note Author Maurice Francis [facility] HospitalNote Date/TimeMarch 2024 11:06[place] [address] Nephrology Progress Note Signed Patient: Myra Pickard SR MR#: [id number] : 1965 Acct:[id number] Age/Sex: 59 / M Adm Date: 5 Loc: Room: [address] [place] [address] Type: ADM IN Attending Dr: Kevon Viera [...] Skin: No rashes , warm to touch [employer] WORK[employer]: Awake,Alert, 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 Musculoskeletal: No swelling [...] ACCESS H[facility]PITAL Stop: 08/11/25 21:59 Last Admin: 08/12/24 [...] 75 Mg Tablet) 75 mg PO DAILY [facility] Stop: 08/11/25 08:59 Last Admin: 08/13/24 08:25 Dose: 75 mg Cyanocobalamin (Cyanocobalamin 1,000 Mcg/Ml Vial) 1,000 mcg IM DAILY [facility] Stop: 08/17/24 09:01 Last Admin: 08/13/24 [...] Admin: 08/13/24 08:25 Dose: 1 units Ipratropium [place] (Ipratropium [place] 0.5 Mg/2.5 Ml Vial.Neb) 0.5 mg INHALATION [...] weeks Documented By: Maurice Francis MD 08/13/24 6077 Signed By: <Electronically signed by Maurice Francis MD> 08/13/24 5283 [facility] Work Phone: Reason for visit Narrative* CV Imaging (Routine) - AuthorizedSpecialtyDiagnoses / ProceduresReferred By ContactReferred To Contact Diagnoses Chest pain, unspecified type Procedures Nuclear Stress Test CHG MYOCARDIAL SPECT MULTIPLE STUDIES Pascale Arnold MD [address] [facility] [place] [address] Phone: tel: fax: [address] [phone] Phone: tel: Referral IDStatusReasonStart DateExpiration DateVisits RequestedVisits [id number]/9/20255/9/202651 [facility] Work Phone: Reason for visit Narrative* CV Imaging (Routine) - AuthorizedSpecialtyDiagnoses / ProceduresReferred By ContactReferred To Contact Diagnoses Chest pain, unspecified type Procedures Nuclear Stress Test CHG MYOCARDIAL SPECT MULTIPLE STUDIES Pascale Arnold MD [address] [facility], [facility] [address] [place] [address] Phone: tel: fax: [address] [address] Phone: tel: Referral IDStatusReasonStCojoin DateExpiration DateVisits RequestedVisits [id number]/9/20255/9/202651 [facility] Work Phone: Chief Complaint MYRA PICKARD is [...] ischemia of right lower extremity with gangrene ([facility]) Procedures Vas art doppler lwr bilat mult lev/PVR Mike Montes MD [address], [address] [address] Referral IDStatusReasonStart DateExpiration DateVisits RequestedVisits [id number] [id number] / ProceduresReferred By ContactReferred To ContactRadiology Diagnoses 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 ([facility]) Procedures CT angiogram abdominal aorta with runoff Mike Montes MD [address], [address] [address] Referral IDStatusReasonStart DateExpiration DateVisits RequestedVisits [id number] Review1Referral IDStatusReasonStart DateExpiration DateVisits RequestedVisits [id number] Review 1Referral IDStatusReasonStart DateExpiration DateVisits RequestedVisits [id number] Review1Specialty Diagnoses / ProceduresReferred By ContactReferred To ContactCardiology Diagnoses Shortness of breath Procedures Transthoracic Echo Complete [place] ECHO TTHRC R-T 2D W/WOM-MODE COMPL SPEC&COLR D Bernard De La Cruz MD [address] [facility] [address], [address] [address] Referral IDStatusReasonStart DateExpiration DateVisits RequestedVisits [id number] Perform Procedure [id number] / ProceduresReferred By ContactReferred To Contact Diagnoses Encounter for pre-operative cardiovascular clearance Procedures ECG 12 Lead Raulito Inman MD [address] [facility] [address], [address] [place] [address] Ref[facility] DateExpiration DateVisits RequestedVisits [id number]/21/20245/21/[id number] / Procedures Referred By ContactReferred To ContactCardiology Diagnoses History of PTCA Procedures Follow Up In Cardiology Raulito Inman MD [address] [facility] [address], [facility] [address] [place] [address] Referral IDStatus[facility]Mount [facility] DateExpiration DateVisits RequestedVisits [id number]/21/20245/21/202511 Reason CANCELLED consult and treat; previous patient of Dr. Sharpe last seen in 2020; persisting intractable headaches Diagnosis 1 Acute intractable he adache, unspecified headache type (R51.9) Referral Organization [facility] Irene Colunga Referring Provider First Name Teresa Referring Provider Last Name Rory Referring Provider [facility] dale Referred Organization [facility] Referred Provider Lyssa Sharpe Referred Address [address] [place] [phone] Referred Provider Specialty Neurology Referral Priority Routine General Notes eVrona Burton 023 10:19:08 AM >Received today. [facility] request us to fill out their form and attach to Referral and send it to them and they will call patient to schedule. Referral was sent P2P and fax insurance card since it would not let me attach to referral Verona Burton 07/28/2022 10:23:53 AM >Spoke with Marilynn at [facility] and patient has been scheduled and cancelled the appt for 07/26/22 Verona Burton 07/28/2022 10:27:39 AM >Telephone encounter was sent Reason 03/31/22 @ 2:45pm consult and treat Diagnosis 1 Type 2 diabetes bobby itus with circulatory disorder (E11.59) Referral Organization [facility] Family Irene Colunga Referring Provider First Name Teresa Referring Provider Last Name Rory Referring Provider Specialty Family Prac dale Referred Organization [facility] Referred Provider Doris Barnes Referred Address [address],[place], [place],[address] Referred Provider Specialty Nurse Jono calderon Referral Priority Routine Referral Appointment Date 2022-03-31 [facility] 02:28[facility]10 PM >Received today and [...] Procedures ECG 12 Lead Raulito Inman MD [address] [place] [address], [place] [phone] Ref[facility]Status[facility] DateExpiration DateVisits RequestedVisits [id number]/21/20245/642155ZefrxmbzcVszjqdmkx / Procedures Referred By ContactReferred To ContactCardiology Diagnoses Shortness of breath Procedures Transthoracic Echo Complete [place] ECHO TTHRC R-T 2D W/WOM-MODE COMPL SPEC&COLR D Bernard De La Cruz MD [address] [place] [address], [address] [address] Ref[facility]Status[facility] DateExpiration DateVisits RequestedVisits [id number] Perform Procedure /[id number] PatientPoor Circulation - Referral from Dr. Soto - No appt available in [place] until 11/02/2023; patient is having right leg and foot pain at a 10 right now since surgery 2 weeks ago SpecialtyDiagnoses / ProceduresReferred By ContactReferred To ContactVascular Surgery Diagnoses Poor circulation Paula Soto, DPM [address] [place] [address] [facility] [address] [place] [address] Referral IDStatusReasonStart DateExpiration DateVisits RequestedVisits [id number] Review Specialty Services Required /[id number] limb ischemia of right lower extremity with gangreFollow up on testing completed [facility] insession ReasonCommentsAngioplasty RLE follow up - procedure at [facility]. Yolanda Critical limb ischemia of right lower extremity with gangreReasonOnset Date CommentsBlood Sugar [id number]/22/2024High blood sugarsReasonCommentsP/O R [facility] with toshia, well approximatedReasonCommentstesting seneca rocksv 2 months ago rt legEst pt Right [...] Provider Active Sta rt: July 23, 2024 Vidal Milton ProviderActiveStart: July 23, 2024 Team Status: Active Member Role Status Dates Teresa Lynch DO Primary Care Provider Active Sta rt: August 11, 2024 Cesar Barrios Jr ProviderActiveStart: August 11, 2024 Francheska Grace Provider, Attending ProviderActiveStart: August 11, 2024 Team Status: Inactive Member Role Status Elda Lynch DO Primary Care Provider Active Sta rt: May 07, 2024 End: May 07Vidal Gomes ProviderActiveStart: May 07, 2024 End: May 07, 2024 Team Status: Active Member Role Status Dates Truman Bryant MD Attending Provider Active Sta rt: December 22, 2023 Team Status: Active Member Role Status Dates Truman Bryant MD Attending Provider Active Sta rt: December 23, 2023 Team Status: Active Member Role Status ASHLI Ponce Attending Provider Active Start: December 25, 2023 [...] Active Start: March 04, 2024 End: March 06ROGELIO Gordonrimary Care ProviderActiveStart: March 04, 2024 End: March 06, 2024Mofelicity Powell , MDAdmit Provider, Attending ProviderActive Start: March 04, 2024 End: March 06, 2024Stgabriela Sharpe MDOther ProviderActiveStart: March 04, 2024 End: March 06reynaldo Burleson MDOther ProviderActiveStart: March 04, 2024 End: March 06, 2024 Team Status: Active Member Role Status Dates Kait Dan MD Emergency Provider Active Start: March 05, 2024 Teresa Lynch , DOPrimary Care ProviderActiveStart: March 05, 2024 João Powell MDAdmit Provider, Other ProviderActiveStart: March 05, 2024 Lyssa Sharpe MDOther ProviderActiveStart: March 05, 2024 Sachi Grantending Provider, Other ProviderActiveStart: March 05, 2024 Team Status: Inactive Member Role Status Dates Teresa Lynch DO Primary Care Provider Active Sta rt: March 08, 2024 End: March 13, 2024Yonas Hutton ProviderActiveStart: March 08, 2024 End: March 13, 2024Mofelicity Andre , MDAdmit ProviderActiveStart: March 08, 2024 End: March 13Jasson Valdez ProviderActiveStart: March 08, 2024 End: March 13Cara Jansen ProviderActiveStart: March 08, 2024 End: March 13reynaldo Burleson MDOther ProviderActiveStart: March 08, 2024 End: March 13rukhsana Ervin , MDAttending ProviderActiveStart: March 08, 2024 End: March 13, 2024 Team Status: Active Member Role Status Dates Teresa Lynch DO Primary Care Provider Active Sta rt: March 09, 2024 Nicolas Huttonrdallas ProviderActiveStart: March 09, 2024 Mohwindy Powell MDAdmit Provider, Other ProviderActiveStart: March 09, 2024 Luther Dozier DOOther ProviderActiveStart: March 09, 2024 Job James MDAttending Provider, Other ProviderActiveStart: March 09, 2024 Team Status: Active Member Role Status Dates Teresa Lynch DO Primary Care Provider Active Sta rt: March 10, 2024 Nicolas Huttonrgency ProviderActiveStart: March 10, 2024 João Powell MDAdmit Provider, Other ProviderActiveStart: March 10, 2024 Luther Dozier DOOther ProviderActiveStart: March 10, 2024 Job James MDOther ProviderActiveStart: March 10, 2024 Mike Burleson , ISABELLAttending Provider, Other ProviderActiveStart: March 10, 2024 Team Status: Inactive Member Role Status Dates Teresa Lynch DO Primary Care Provider Active Sta rt: March 21, 2024 End: March 21Manny Ryna ProviderActiveStart: March 21, 2024 End: March 21, [...] Active Start: March 03, 2024 Teresa Lynch DOPrimary Care ProviderActiveStart: March 03, 2024 João Powell MDAit Provider, Attending ProviderActiveStart: March 03, 2024 Team [...] rt: July 12, 2023 End: July 12, 2023Abdullahi Wilson MDEmerchi [address] [facility] hospitalcy ProviderActiveStart: July 12, 2023 End: July 12, 2023 Team Status: Active Member Role Status Dates Teresa Lynch DO Primary Care Provider Active Sta rt: July 26, 2023 Mariely Davis RMAAttending ProviderActiveStart: July 26, 2023 Team Status: Active Member Role Status Dates Teresa Lynch DO Primary Care Provider Active Sta rt: July 31, 2023 HERVE DockeryCAttenalondra Provider, Referring ProviderActiveStart: July 31, 2023 Team [...] Sta rt: August 08, 2023 Syl Kaplan LPNAtagustina ProviderActiveStart: August 08, 2023 Team Status: Active [...] Sta rt: September 21, 2023 End: September 20LINDSEY Poe ProviderActiveStart: September 21, 2023 End: September 21, [...] Provider Active Sta rt: September 30, 2023 HERVE OhPro[facility] Hospitalalondra ProviderActiveStart: September 30, 2023 Team Status: Active Member Role Status Elda Lynch DO Primary Care Provider Active Sta rt: October 01, 2023 Vidal Carr ProviderActiveStart: October 01, 2023 Team Status: Active [...] October 06, 2023 Team MemberRelationshipSpecialtyStart DateEnd Date Rory Teresa BrownrickDO [facility]13[facility]19 Team Status: Active Member Role Status Dates Fely Nguyen DO Attending Provider Active Start: November 15, 2023 Team Status: Active Member Role Status Dates Hernan Crook Attending Provider Active Start: November 26, 2023 Team Status: Active Member Role Status Dates Teresa Lynch DO Primary Care Provider Active Sta rt: March 08, 2024 Yonas Hutton ProviderActiveStart: March 08, 2024 Francheska Fleming Provider, Attending ProviderActiveStart: March 08, 2024 Team [...] rt: April 24, 2024 End: April 24, 2024Negro Hu MDAttending ProviderActiveStart: April 24, 2024 End: April 24, 2024Team MemberRelationshipSpecialtyStart DateEnd Date Teresa Lynch DO PCP - Mqctbow49/13/19 Namita Mercer LPN Care ManagerCase Management12/25/23Team MemberRelationshipSpecialtyStart DateEnd Date Teresa Lynch MD [address] [place] [id number] PCP - External PCP03/05/23 Team Status: Active Member Role Status Dates Teresa Lynch DO Primary Care Provider Active Sta rt: October 10, 2024 Deborah Gilbert ProviderActiveStart: October 10, 2024 Abdullahi Canchola DOAdmit [...] ProviderActiveStart: October 10, 2024 Maryann Pierre , SPECIALIST WOUND CARE-Other ProviderActiveStart: October 10, 2024 Team Status: Inactive Member Role Status Dates Teresa Lynch DO Primary Care Provider Active Sta rt: October 10, 2024 End: October 11Deborah Hoover ProviderActiveStart: October 10, 2024 End: October 11, 2024Abdullahi Canchola DOAdmit Provider, Attending ProviderActive Start: October 10, 2024 [...] DateEnd Date Teresa Lynch DO [address] [place] [address] PCP - [facility]11/04/24Team MemberRelationshipSpecialtyStart DateEnd Date Teresa Lynch DO [address] [place] [address] PCP - [facility]11/04/24Team MemberRelationshipSpecialtyStart DateEnd Date Teresa Lynch DO [address] [place] [address] PCP - [facility]11/04/24 Goals (unrecognized section and content) Goals may [...] section and content) DATE CREATED AUTHOR 11/11/2022 [facility] DATE CREATED AUTHOR AUTHOR'S ORGANIZ ATION 01/27/2023 [facility] DATE CREATED AUTHOR AUTHOR'S ORGANIZ ATION 02/16/2023 [facility] DATE CREATED AUTHOR AUTHOR'S ORGANIZ ATION [facility]/16/2023 [facility] DATE CREATED AUTHOR AUTHOR'S ORGANIZ ATION 10/22/2023 [facility] DATE CREATED AUTHOR AUTHOR'S ORGANIZ ATION 11/16/2023 [facility] DATE CREATED AUTHOR AUTHOR'S ORGANIZ ATION 11/25/2023 [facility] DATE CREATED AUTHOR AUTHOR'S ORGANIZ ATION 01/10/2024 [facility] DATE CREATED AUTHOR AUTHOR'S ORGANIZ ATION 02/13/2024 [facility] DATE CREATED AUTHOR AUTHOR'S ORGANIZ ATION 02/14/2024 [facility] DATE CREATED AUTHOR AUTHOR'S ORGANIZ ATION 02/15/2024 [facility] DATE CREATED AUTHOR AUTHOR'S ORGANIZ ATION 02/16/2024 [facility] DATE CREATED AUTHOR AUTHOR'S ORGANIZ ATION 02/17/2024 [facility] DATE CREATED AUTHOR AUTHOR'S ORGANIZ ATION 02/18/2024 [facility] DATE CREATED AUTHOR AUTHOR'S ORGANIZ ATION 02/19/2024 [facility] DATE CREATED AUTHOR AUTHOR'S ORGANIZ ATION 02/20/2024 [facility] DATE CREATED AUTHOR AUTHOR'S ORGANIZ ATION 02/21/2024 [facility] DATE CREATED AUTHOR AUTHOR'S ORGANIZ ATION 02/22/2024 [facility] DATE CREATED AUTHOR AUTHOR'S ORGANIZ ATION 02/23/2024 [facility] DATE CREATED AUTHOR AUTHOR'S ORGANIZ ATION 02/24/2024 [facility] DATE CREATED AUTHOR AUTHOR'S ORGANIZ ATION 05/29/2024 [facility] DATE CREATED AUTHOR AUTHOR'S ORGANIZ ATION 11/08/2024 [facility] DATE CREATED AUTHOR AUTHOR'S ORGANIZ ATION 12/27/2024 [facility] DATE CREATED AUTHOR AUTHOR'S ORGANIZ ATION 02/09/2025 [facility] DATE CREATED AUTHOR AUTHOR'S ORGANIZ ATION 02/28/2025 [facility] DATE CREATED AUTHOR AUTHOR'S ORGANIZ ATION 03/08/2025 [facility] FOR RECORDS PERTAINING TO PATIENTS [...] BE BASED ON THE PRIMARY CLINICAL RECORDS. [employer] provides no warranty or guarantee of the accuracy or completeness of information in this document.
[2025-04-01 09:52] LABS: Glucose Urine UA >=1000 mg/dL (NEGATIVE)
[2025-04-01 11:00] LABS: Protein Creatinine Ratio Urine 0.21; Total Protein Urine Random 18.4 mg/dL (<=11.9)
== END 2025-04-01 07:36 | disposition home or self-care (01) ==
LOC: LAB 07:35
PROVIDERS: PCP Family Medicine; Visit Provider Internal Medicine Nephrology
DX: E61.1 Iron deficiency (principal); E55.9 Vitamin D deficiency, unspecified; N18.9 Chronic kidney disease, unspecified; D63.1 Anemia in chronic kidney disease; Z68.34 Body mass index [BMI] 34.0-34.9, adult
CPT/HCPCS: 81003; 82570; 84156

== ENCOUNTER 2025-05-24 17:26 | Observation (INO) | payer OTHER, SELFPAY ==
--- OUTSIDE RECORDS SUMMARY | 2023-12-15 03:00 | XMS_ITS ---
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 Name Role Phone Jenaro Valadez DO Primary Care Provider Fredy Hawkins [phone] REASON FOR VISIT Wound - TMA revision Encounters Encounter Location Date Provider Diagnosis [facility] [address] [place] [id number] 12/15/2023 Fredy Elias Plan Of Treatment No Information Progress Notes * Solomon FELDMAN SrDOB: [birth year] (59 yo M)Acc No.[id number]:12/15/2023 UNLOCKED PROGRESS NOTE Patient:?Solomon FELDMAN Sr :?Fredy Elias DPM, MSDOB:1965???Age: 58 Y???Sex:MaleDate:4Phone:[phone]:[address] [place] [address], [address], [place], [id number]:Mirtha Guzman Out:09:54 AM EST * * Electronic signature of Fredy Elias DPM on 05/24/2025 at 06:45 PM ESTSign off status: PendingVisit Status:?CHK (Check Out) * Provider: Mari Elias DPM, MS Date: 0 12/15/2023 Generated for Printing/Faxing/eTransmitting on:?05/24/2025 06:45 PM EST
--- OUTSIDE RECORDS SUMMARY | 2024-02-14 03:00 | XMS_ITS ---
Author Organization [facility] [place] Address [address] [place] [address] Care Team Providers Care Slubber Operator Name Role Phone Jenaro Valadez DO Primary Care Provider Franklin Esparza Unavailable [phone] REASON FOR VISIT 1YEAR-COPD Encounters Encounter Location Date Provider Diagnosis Pulmonary Medicine [place] [address] [place] [address] 02/14/2024 Franklin Bonilla Plan Of Treatment No Information Progress Notes * Solomon FELDMAN SrDOB: [birth year] (59 yo M)Acc No.[id number]:02/14/2024 UNLOCKED PROGRESS NOTE Follow Up Patient: Camille AIKENSolomon Sr :?Franklin Bonilla DODOB:1965???Age:58 Y ???Sex:MaleDate:4Phone:[phone]:[address] [place] [address], [address], [place], [id number]:Jenaro Valadez DO Subjective: * Chief Complaints: * 1 . 1YEAR-COPD. * Medical History: Objective: * Vitals: Assessment: Plan: * Treatment: * * Electronic signature of Franklin Bonilla DO on 05/24/2025 at 06:45 PM ESTSign off status: PendingVisit Status:?R/S (Rescheduled) * Provider: Emerson Bonilla DO Date: 0 02/14/2024 Generated for Printing/Faxing/eTransmitting on:?05/24/2025 06:45 PM EST
--- OUTSIDE RECORDS SUMMARY | 2024-05-15 03:00 | XMS_ITS ---
Author Organization [facility] in [place] Address [address] [place] [address] Care Team Providers Care Aerodynamic Consultant Name Role Phone Jenaro Valadez DO Primary Care Provider Franklin Esparza Unavailable [phone] Allergies Allergen (clinical drug ingredient) Drug/Non Drug Allergy documented on EMR Reaction Allergy Type Onset Date Status Latex Latex hives Allergy ActivePenicillinshortness of breathDrug AllergyActive REASON FOR VISIT 1YEAR-COPD Medications Medication SIG (Take, Route, Frequency, Duration) Notes Start Date End Date Status Prevnar 20 0.5 ML as directed Intramuscular 02/15/2023ctivePregabalin 200 MGOral; Duration: 30 DaysActiveSildenafil Citrate 100 MGTAKE 1 TABLET BY MOUTH DAILY NEEDED Oral; Duration: 30 DaysActive rOPINIRole HCl 1 MGOral; Duration: 90 DaysActiveoxyCODONE-Acetaminophen 5-325 MG 1 tablet as needed Orally every 6 hrs; Duration: 5 days01/15/2024ctivemetFORMIN HCl 1000 MGOral; Duration: 90 DaysActiveMetoprolol Tartrate 100 MGTAKE 1/2 TABLET BY MOUT TWICE DAILY Oral; Duration: 90 DaysActiveOmeprazole 40 MGOral; Duration: 90 DaysActiveNitroglycerin 0.4 MGDISSOLVE 1 TABLET UNDER TONGUE NEEDED FOR CHEST PAIN.MAY REPEAT EVERY 5 MINUTES X3. Sublingual; Duration: 30 DaysActiveOXcarbazepine 300 MGOral; Duration: 30 DaysActiveIsosorbide Mononitrate ER 30 MGOral; Duration: 30 DaysActiveHYDROcodone-Acetaminophen 5-325 MGTAKE 1 TABLET BY MOUTH EVERY 12 HOURS NEEDED Oral; Duration: 3 DaysActive Jardiance 10 MGOral; Duration: 90 DaysActiveJanuvia 100 MGOral; Duration: 90 DaysActiveLatanoprost 0.005 %Ophthalmic; Duration: 90 DaysActiveClopidogrel Bisulfate 75 MGOral; Duration: 90 DaysActiveAtorvastatin Calcium 80 MGTAKE 1 TABLET BY MOUTH EVERY DAY Oral; Duration: 90 DaysActivediazePAM 5 MGOral; Duration: 30 DaysActiveGlimepiride 2 MGOral; Duration: 90 DaysActiveDivalproex Sodium 250 MGTAKE 1 TABLET BY MOUTH EVERY DAY AT BEDTIME FOR 30 DAYS Oral; Duration: 30 DaysActiveAlbuterol Sulfate HFA 108 (90 Base) MCG/ACT2 puffs as needed for SOB Inhalation every 4 hrs; Duration: ctiveAspirin Low Dose 81 MGOral; Duration: 90 DaysActiveAmitriptyline HCl 100 MGTAKE 1 TABLET BY MOUTH EVERYDAY AT BEDTIME Oral; Duration: 30 daysActiveTrulicity 1.5 MG/0.5ML Subcutaneous; Duration: 28 DaysActiveValsartan-hydroCHLOROthiazide 160-12.5 MG TAKE 1 TABLET BY MOUTH EVERY DAY FOR 90 DAYS Oral; Duration: 90 DaysActive Symbicort 160-4.5 MCG/ACT 2 puffs Inhalation BID; Duration: 90 days Rinse after use ActiveSpiriva Respimat 2.5 MCG/ACTINHALE 2 PUFFS BY MOUTH ONCE DAILY Inhalation; Duration: 90 daysActiveTamsulosin HCl 0.4 MG1 capsule Orally Once a dayActive tiZANidine HCl 4 MGOral; Duration: 30 DaysActive Social History Tobacco Use: Social History Observation Description Date Details (start date - stop date) Former Smoker NA - NA Tobacco Control (Standard) Question Answer Notes Tobacco use: Former smoker How long has it been since you last smoked?1-5 yearsAdditional Findings: Tobacco [id number] cigarette smoker (10-19/day) Encounters Encounter Location Date Provider Diagnosis Pulmonary Medicine [address] [address] 05/15/2024 Franklin Bonilla Plan Of Treatment No Information Procedure Notes * CategorySub-CategoryDetailNotesPFTData:02/11/2021-FEV1/FVC: 81% -FEV1: 80%-FVC: 76%-Bronchodilator response: None-RV: 122%-T%-DLCO: 76%-Flow-volume loop: Mild restriction with scooping08/15/2014-FEV1/FVC: 82%-FEV1: 72%-FVC: 69%-Partialbronchodilator response in FEV1-RV: 93%-T%-DLCO: 72%Alpha-1 AntitrypsinScreening Date:06/09/2020Genotype:M/M Progress Notes * MATTEO Solomon María SrDOB: [birth year] (59 yo M)Acc No.[id number]:05/15/2024 UNLOCKED PROGRESS NOTE Follow Up Patient: Solomon BABB Sr :?Franklin Bonilla DODOB:1965???Age:58 Y ???Sex:MaleDate:05/15/2024hone:[phone]:[address] [place] [address], [address], [id number]:Jenaro Valadez, DO Subjective: * Chief Complaints: * 1 . 1YEAR-COPD. * Medical History: C entrilobular emphysema, JADEN (obstructive sleep apnea), HTN (hypertension), Hyperlipidemia, RLS (restless legs syndrome), PAD (peripheral artery disease), CAD (coronary artery disease), DM2 (diabetes mellitus, type 2), Multiple pulmonary nodules, BPH (benign prostatic hyperplasia), snf (current) use of inhaled steroids, History of tobacco abuse. * Surgical History: c ataract removal , appendectomy , carpal tunnel release , Cardiac Stent Placement-2015 & 2016 , vascular stent placement-left leg . * Hospitalization/Major Diagno stic Procedure: D enies Past Hospitalization. * Family History: M other: diagnosed with Diabetes, Hypertension, Heart Disease. * Social History: ???Tobacco Use:?Tobacco Control (Standard)?Tobacco use:?Former smoker ?How long has it been since you last smoked? 1-5 years ?Additional Findings: Tobacco non-user?Ex-moderate cigarette smoker (10-19/day) ?Electronic Cigarette use?Current user?No ?LM: Additional Tobacco Questions?Number of Years Pt Smoked:?42 ?Number of Packs per Day:?1 ?When did you stop smokin07/06/2020. 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 ???Drugs/Alcohol:?Drugs?Have you used drugs other than those for medical reasons in the past 12 months??No ?Does the Patient have a History of Drug Abusein the Past??No ?Caffeine?Intake:?1-2 cups per day Iced Tea ?Do you drink alcohol?: No. ?Do you smoke marijuana?: Denies. * Medications: T aking Albuterol Sulfate HFA 108 (90 Base) MCG/ACT Aerosol Solution 2 puffs as needed for SOB Inhalation every 4 hrs , Taking Amitriptyline HCl 100 MG Tablet TAKE 1 TABLET BY MOUTH EVERYDAY AT BEDTIME Oral , Taking Aspirin Low Dose(Aspirin) 81 MG Tablet Delayed Release Oral , Taking Atorvastatin Calcium 80 MG Tablet TAKE 1 TABLET BY MOUTH EVERY DAY Oral , Taking Clopidogrel Bisulfate 75 MG Tablet Oral , Taking diazePAM 5 MG Tablet Oral , Taking Divalproex Sodium 250 MG Tablet Delayed Release TAKE 1 TABLET BY MOUTH EVERY DAY AT BEDTIME FOR 30 DAYS Oral , Taking Glimepiride 2 MG Tablet Oral , Taking HYDROcodone-Acetaminophen 5-325 MG Tablet TAKE 1 TABLET BY MOUTH EVERY 12 HOURS NEEDED Oral , Taking Isosorbide Mononitrate ER 30 MG Tablet Extended Release 24 Hour Oral , Taking Januvia(SITagliptin Phosphate) 100 MG Tablet Oral , Taking Jardiance(Empagliflozin) 10 MG Tablet Oral , Taking Latanoprost 0.005 % Solution Ophthalmic , Taking metFORMIN HCl 1000 MG Tablet Oral , Taking Metoprolol Tartrate 100 MG Tablet TAKE 1/2 TABLET BY MOUT TWICE DAILY Oral , Taking Nitroglycerin 0.4 MG Tablet Sublingual DISSOLVE 1 TABLET UNDER TONGUE NEEDED FOR CHEST PAIN.MAY REPEAT EVERY 5 MINUTES X3. Sublingual , Taking Omeprazole 40 MG Capsule Delayed Release Oral , Taking OXcarbazepine 300 MG Tablet Oral , Taking oxyCODONE-Acetaminophen 5-325 MG Tablet 1 tablet as needed Orally every 6 hrs , Taking Pregabalin 200 MG Capsule Oral , Taking Prevnar 20(Pneumococcal 20-Imelda Conj Vacc) 0.5 ML Suspension Prefilled Syringe as directed Intramuscular , Taking rOPINIRole HCl 1 MG Tablet Oral , Taking Sildenafil Citrate 100 MG Tablet TAKE 1 TABLET BY MOUTH DAILY NEEDED Oral , Taking Spiriva Respimat(Tiotropium Blum) 2.5 MCG/ACT Aerosol Solution INHALE 2 PUFFS BY MOUTH ONCE DAILY Inhalation , Taking Symbicort(Budesonide-Formoterol Fumarate) 160-4.5 MCG/ACT Aerosol 2 puffs Inhalation BID Rinse after use, Taking Tamsulosin HCl 0.4 MG Capsule 1 capsule Orally Once a day , Taking tiZANidine HCl 4 MG Tablet Oral , Taking Trulicity(Dulaglutide) 1.5 MG/0.5ML Solution Pen-injector Subcutaneous , Taking Valsartan-hydroCHLOROthiazide 160- 12.5 MG Tablet TAKE 1 TABLET BY MOUTH EVERY DAY FOR 90 DAYS Oral , Medication List reviewed and reconciled with the patient * Allergies: P enicillin: shortness of breath - Allergy, Latex: hives - Allergy. Objective: * Vitals: Assessment: Plan: * Treatment: * Procedures: ???Alpha-1 Antitrypsin:?Screening Date:?06/09/2020.?Genotype:?M/M.?PFT:?Data:?02/11/2021 ?-FEV1/FVC: 81% ?-FEV1: 80% ?-FVC: 76% ?-Bronchodilator response: None ?-RV: 122% ?-T% ?-DLCO: 76% ?-Flow-volume loop: Mild restriction with scooping ?08/15/2014 ?-FEV1/FVC: 82% ?-FEV1: 72% ?-FVC: 69% ?-Partial bronchodilator response in FEV1 ?-RV: 93% ?-T% ?-DLCO: 72% ?.? * Preventive Medicine: ??COVID Vaccination:?Has patient had COVID Vaccination?COVID Vaccination?Yes 11/13/2020 ??Immunization Status:?Pneumovacc?pneumovacc 02/22/2016.?Influenza?2021.? ??Screenings/Counseling:?FALL RISK SCREENING?Fall Risk Assessment:?No falls in the past year ?Are you afraid of falling??No ?BMI ACTION PLAN?Above Normal BMI Follow-up?Dietary management education, guidance, and counseling * * Electronic signature of Franklin Bonilla DO on 05/24/2025 at 06:46 PM ESTSign off status: PendingVisit Status:?N/S N/C (No Show/No Charge) * Provider: Emerson Bonilla DO Date: 07/16/2023 Generated for Printing/Faxing/eTransmitting on:?05/24/2025 06:46 PM EST
--- OUTSIDE RECORDS SUMMARY | 2024-07-10 03:00 | XMS_ITS ---
Author Organization [facility] in [place] Address [address] [place] [address] Care Team Providers Care Mechanical Assembler Name Role Phone Jenaro Valadez DO Primary Care Provider Franklin Esparza Unavailable [phone] REASON FOR VISIT 1 year F/U Encounters Encounter Location Date Provider Diagnosis Pulmonary Medicine [place] [address] [place] [address] 07/10/2024 Franklin Bonilla Plan Of Treatment No Information Progress Notes * Solomon FELDMAN SrDOB: [birth year] (59 yo M)Acc No.[id number]:07/10/2024 UNLOCKED PROGRESS NOTE Follow Up Patient: Camille AIKENSolomon Sr :?Franklin Bonilla DODOB:1965???Age:58 Y ???Sex:MaleDate:07/10/2024Phone:[phone]:[address] [place] [address], [address], [place], [id number]:Jenaro Valadez DO Subjective: * Chief Complaints: * 1 . 1 year F/U. * Medical History: Objective: * Vitals: Assessment: Plan: * Treatment: * * Electronic signature of Franklin Bonilla DO on 05/24/2025 at 06:46 PM ESTSign off status: PendingVisit Status:?OFF CANC (OFFICE CANCEL) * Provider: Emerson Bonilla DO Date: 0 07/10/2024 Generated for Printing/Faxing/eTransmitting on:?05/24/2025 06:46 PM EST
--- OUTSIDE RECORDS SUMMARY | 2025-05-22 10:51 | XMS_ITS | Encounter Summary ---
Author Organization [employer] [facility] tem Address [id number] [address] [place] [address] Care Team Providers Care Hand Decorator Name Role Phone Unavailable Primary Care Provider Unavailabl e Reason for Referral * Misc (Routine) - Pending ReviewSpecialtyDiagnoses / ProceduresReferred By ContactReferred To Contact Procedures Discharge Follow-Up Discharge Follow-Up Marquis Galloway MD [address] [id number] Phone: tel: fax: Referral IDStatusReasonStart DateExpiration DateVisits RequestedVisits [id number] * Misc (Routine) - Pending ReviewSpecialtyDiagnoses / ProceduresReferred By ContactReferred To Contact Procedures No dressing needed Marquis Galloway MD [address] [address] Phone: tel: fax: Referral IDStatusReasonStart DateExpiration DateVisits RequestedVisits [id number] * Misc (Routine) - Pending ReviewSpecialtyDiagnoses / ProceduresReferred By ContactReferred To Contact Procedures Adult diet Marquis Galloway MD [facility] [address] [place] [address] Phone: tel: fax: Referral IDStatusN[facility] DateExpiration DateVisits RequestedVisits [id number]/ Reason for Visit * Auth/CertSpecialtyDiagnoses / ProceduresReferred By ContactReferred To Contact Diagnoses 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) PAD (peripheral artery disease) critical limb ischemia Procedures Lower Ext Angiogram-co2 Padmini Montes MD [address], [address] [address] Phone: tel: fax: Referral IDStatusNadyaRadiant DateExpiration DateVisits RequestedVisits [id number] Encounter Details DateTypeDepartmentCare Team (Latest Contact Info)Znrkstgwlgh20/18/2025 10:51 AM EST - 05/22/2025 7:05 PM ESTHospital Encounter [facility] [address] [place] [address] Padmini Montes MD [address], [address] [address] 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); PAD (peripheral artery disease) Discharge Disposition: Home Social History Tobacco UseTypesPacks/DayYears UsedDateSmoking Tobacco: Every CvnRayvvztjcm676.6 Started: 10/05/1981Smokeless Tobacco: NeverAlcohol UseStandard Drinks/Week CommentsYes0 (1 standard drink = 0.6 oz pure alcohol)occassionallyAHC Utilities AnswerDate RecordedIn the past 12 months has the electric, gas, oil, or water [employer] threatened to shut off services in your home?No4AUDIT-CAnswer Date RecordedQ1: How often do you have a drink containing alcohol?2-4 times a month06/04/2024Q2: How many drinks containing alcohol do you [...] stay in as a part of a household?No11/07/2023hildcareAnswerDate Recorded GvyoqwkcgOtkvlwq75/10/2019EmploymentAnswerDate RecordedEmploymentUnknown 11/12/2018Hunger ScreeningAnswerDate RecordedWithin the past 12 months we worried whether our food would run out before we got money to buy more.Never True02/29/2024Within the past 12 months the food we bought just didn't last and we didn't have money to get more.Never True02/29/2024Sex and Gender Information ValueDate RecordedSex Assigned at BirthNot on fileLegal UtjQwhk3501/06/2015 1:04 PM EDTGender IdentityNot on fileSexual OrientationNot on filedocumented as of this encounter Last Filed Vital Signs Vital SignReadingTime TakenCommentsBlood Palalsdw300/6705/22/2025 6:00 PM EST Pavnj947605/22/2025 6:00 PM ESTTemperature--Respiratory Veru548007/23/2024 6:00 PM ESTOxygen Ahuovbwmlq97%05/22/2025 6:00 PM ESTInhaled Oxygen Concentration-- Uffjog76.3 kg (208 lb)05/22/2025 11:39 AM EWSDgyutw839.9 cm (6')05/22/2025 11:39 AM ESTBody Mass Index28. 11:39 AM ESTdocumented in this encounter Functional Status * IP Hunger/Food Insecurity ScreeningQuestionAnswerDate of AssessmentAuthor Hunger Screening Complete?Yes05/22/2025 11:38 AM Krista Moss RN If Eligible: Received Food BoxNot Offered to Ceqypac3205/22/2025 11:38 AM Krista Mitchell, LEENA * AN Cardiac QuestionsQuestionAnswerDate of AssessmentAuthorCP when climbing a flight of stairs or walking a city block?N/A107/23/2024 11:39 AM Krista Moss RNSOB when climbing a flight of stairs or walking a city block?N/A107/23/2024 11:39 AM Krista Moss RN * Intra-Procedural MonitoringQuestionAnswerDate of AssessmentAuthorRichmond Agitation Sedation Scale (RASS) 4:15 PM Mercedes Moss LPN Cardiac RhythmNormal sinus uuherf9405/22/2025 4:15 PM Mercedes Moss LPN * Site/Extremity AssessmentQuestionAnswerDate of AssessmentAuthorCapillary RefillLess than 3 xypmhsh0605/22/2025 1:43 PM Perla Chen RNRt Distal Pulse AssessmentUnable to Yvqbry3905/22/2025 3:10 PM Perla Chen RNLt Distal Pulse WnjxsaujgqVfdlxwq94/18/2025 1:43 PM Perla Chen RNMotor Function/Sensation AssessmentIntact;Ffkogsue56/18/2025 3:10 PM Perla Chen RNSkin EufpkWctx40/18/2025 1:39 PM Grace Lagunas RN * Skin Color/ConditionQuestionAnswerDate of AssessmentAuthorSkin TempWarm;Dry 05/22/2025 3:10 PM Perla Chen RNSkin Color/Condition (WDL)WDL 05/22/2025 3:10 PM Perla Chen RN * Vitals and MonitoringQuestionAnswerDate of AssessmentAuthorPatient ObservationsBP uuorvri9105/22/2025 4:15 PM Mercedes Moss, HEATHERNEtCO2 (mmHg) [address]/23/2024 4:10 PM Mercedes Moss LPN * PainQuestionAnswerDate of ZrassekvcgJqvjxfUbzdEx80/18/2025 3:10 PM Perla Chen RN * BEE (kcal)AnswerDate of DgorcpioykPzrpox209452/18/2025 11:39 AM Krista Moss, LEENA * VitalsQuestionAnswerDate of AssessmentAuthorBP LocationRight arm05/22/2025 11:39 AM Krista Moss RNPatient PositionSemi-nxffeuo9705/22/2025 11:39 AM Krista Moss RN * Vital SignsQuestionAnswerDate of GzitowhbnnVfeqegPM127/6705/22/2025 6:00 PM Estefania Bejarano, DMKneal0586/18/2025 6:00 PM Estefania Bejarano ZARwyi20 05/22/2025 6:00 PM Estefania Bejarano, QKQiY55003/18/2025 6:00 PM Estefania Bejarano, LEENAO2 DeviceNone (Room air)05/22/2025 6:00 PM Estefania Bejarano RN Heart Rate LwggugXyqcxtd61/18/2025 6:00 PM Estefania Bejarano RNMAP (mmHg)82 05/22/2025 6:00 PM Estefania Bejarano RN * Height and WeightQuestionAnswerDate of VpmunmabxtOdptdfLykozq8732/18/2025 11:39 AM Krista Moss RNWeight332805/22/2025 11:39 AM Krista Moss RNHeight LjvpymQosymd54/18/2025 11:39 AM Krista Moss RNBSA (Calculated - sq m)2.19107/23/2024 11:39 AM Krista Moss RNBMI (Calculated)28. 11:39 AM Krista Moss RNWeight GedvccXldhyr19/18/2025 11:39 AM Krista Moss RNWeight in (lb) to have BMI = 71010.9107/23/2024 11:39 AM Krista Moss RN * RLE Peripheral Vascular AssessmentQuestionAnswerDate of AssessmentAuthorR Posterior Tibial PulseUnable to kfrlre8605/22/2025 6:47 PM Estefania Bejarano, LEENAR Dorsalis Pedis/Pedal PulseUnable to xgkqga6905/22/2025 6:47 PM Estefania Bejarano, LEENA * Moran Fall RiskQuestionAnswerDate of AssessmentAuthorHistory of Falling0 05/22/2025 11:38 AM Krista Moss RNSecondary Diagnosis0 05/22/2025 11:38 AM Krista Moss RNAmbulatory Uvtu54107/23/2024 11:38 AM Krista Moss RNIntravenous Therapy/Heparin/Saline Lock 11:38 AM Krista Moss RNGait/Transferring0 05/22/2025 11:38 AM Krista Moss RNMental Nanwcf902/18/2025 11:38 AM Krista Moss RNScore20107/23/2024 11:38 AM Krista Moss RN * Abuse Indicator ScreeningQuestionAnswerDate of AssessmentAuthorSafe in HomeYes 05/22/2025 11:36 AM Krista Moss RNDo you feel safe in your relationship(s)?Yes05/22/2025 11:36 AM Krista Moss RNAre you in immediate danger?No05/22/2025 11:36 AM Krista Moss RN * Psychosocial ConsultsQuestionAnswerDate of AssessmentAuthorSpiritual Care Consult NzgnajWv81/18/2025 11:36 AM Krista Moss RNSocial Services Consult IbokqvIg92/18/2025 11:36 AM Krista Moss RN Palliative Care Consult VbvwwnEc00/18/2025 11:36 AM Krista Moss RN * NPOQuestionAnswerDate of AssessmentAuthorTime of last kdxezm6517068/18/2025 11:36 AM Krista Moss RNDate of last drgmqk3720547/18/2025 11:36 AM Krista Moss RNDate of last lmohv4243898/18/2025 11:36 AM Krista Mitchell RNTime of last xapxf8250011/18/2025 11:36 AM Krista Moss RN * Harm Risk AssessmentQuestionAnswerDate of AssessmentAuthorAre you having thoughts of homicide or causing harm to others?No05/22/2025 11:38 AM Krista Moss RN * Blood HistoryQuestionAnswerDate of AssessmentAuthorHave you had a blood transfusion?Yes05/22/2025 11:36 AM Krista Moss RNHave you ever had a blood transfusion reaction?No05/22/2025 11:36 AM Krista Moss RNWould you accept a blood transfusion in a life-threatening situation?Yes05/22/2025 11:36 AM Krista Moss RN * Adult Sepsis RiskQuestionAnswerDate of AssessmentAuthorRisk of Sepsis v.20.7 05/22/2025 7:01 PM Janet, Clindoc * #1 Site AssessmentQuestionAnswerDate of AssessmentAuthorDistal Pulse IsgfgkhaccVmkuv84/18/2025 6:47 PM Estefania Bejarano, RNPressure DeviceManual 05/22/2025 6:00 PM Estefania Bejarano RNSite LocationRight hyogtrd7905/22/2025 6:47 PM Estefania Bejarano RNSite InspectionDry;Intact;Soft;Non-tender to palpation;Clean05/22/2025 6:47 PM Estefania Bejarano RNSite DressingOther (Comment)05/22/2025 6:47 PM Estefania Bejarano RNClosure SxootsIlyr63/18/2025 6:47 PM Estefania Bejarano RN * Pre-Sedation ChecklistQuestionAnswerDate of AssessmentAuthorConsents Verified Yes05/22/2025 1:42 PM Perla Chen RN * Pain AssessmentQuestionAnswerDate of AssessmentAuthorPain AssessmentNo/denies pain05/22/2025 6:00 PM Estefania Bejarano RN * Patient Belongings at Bedside / StretcherQuestionAnswerDate of Assessment AuthorClothingPants;Shirt;Footwear;Socks;Greuuitqoq67/18/2025 11:39 AM Krista Mitchell RNBelongings at QezcmfqKfewzpay78/18/2025 11:39 AM Krista Mitchell RN * Patient Belongings Sent HomeQuestionAnswerDate of AssessmentAuthorAll Belongings Sent LrzkEk9405/22/2025 11:39 AM Krista Moss RN Belongings Sent OinuSszghfam96/18/2025 11:39 AM Krista Moss RN * Fall Risk ScaleQuestionAnswerDate of AssessmentAuthorFall Risk ScaleMorse Fall Risk Scale05/22/2025 11:38 AM Krista Moss RN * Urine Output/AssessmentQuestionAnswerDate of ZgcyeserrmSjneswJadjt932 05/22/2025 6:47 PM Estefania Bejarano RN * Palliative Care AssessmentQuestionAnswerDate of AssessmentAuthorDoes patient have a potentially life-limiting or life-threatening condition?No05/22/2025 11:36 AM Krista Moss RN * [place] Suicide BehaviorQuestionAnswerDate of AssessmentAuthor6. Have you ever done anything, started to do anything, or prepared to do anything to end your life?No05/22/2025 11:38 AM Krista Moss RN * Suicidal Ideation (Last Month)QuestionAnswerDate of AssessmentAuthor1. In the last month have you wished you were or wished you could go to sleep and not wake up?No05/22/2025 11:38 AM Krista Moss RN2. In the last month have you actually had any thoughts of killing yourself?No05/22/2025 11:38 AM Krista Moss RNAble to assess?Yes05/22/2025 11:38 AM Krista Moss RN * Vitals TimerQuestionAnswerDate of AssessmentAuthorRestroswell Vitals TimerYes 05/22/2025 6:00 PM Estefania Bejarano RN * TB ScreeningQuestionAnswerDate of AssessmentAuthorPatient has prolonged cough? No05/22/2025 11:36 AM Krista Moss RNPatient has bloody cough?No 05/22/2025 11:36 AM Krista Moss RNPatient has fever?No 05/22/2025 11:36 AM Krista Moss RNPatient has night sweats?No 05/22/2025 11:36 AM Krista Moss RNPatient has weight loss?No 05/22/2025 11:36 AM Krista Moss RNPatient has positive PPD?No 05/22/2025 11:36 AM Krista Moss RN * [place] Suicide Risk LevelAnswerDate of AssessmentAuthorNot at Suicide Risk 05/22/2025 11:38 AM Krista Moss RN * Safe Patient HandlingQuestionAnswerDate of AssessmentAuthorCan the patient stand, pivot & walk with no physical assistance from staff with low risk of falling?Y107/23/2024 11:36 AM Krista Moss RNSPH equipment not needed; may useOther (comment)05/22/2025 11:36 AM Krista Moss RNSafe Patient Handling Level:Yuoyzfwijak81/18/2025 11:36 AM Krista Moss RN * Positioning Assistance RequiredQuestionAnswerDate of AssessmentAuthorPatient requires assistance with moving up in bed, or turning?N107/23/2024 11:36 AM Krista Mitchell RNPatient is unresponsive?N107/23/2024 11:36 AM EST Dominguez Antonio, Krista, RNPatient requires assistance with lateral transfers?N 05/22/2025 11:36 AM Krista Moss RNPatient has fragile skin or decubitus ulcer?N107/23/2024 11:36 AM Krista Moss RNOther circumstances resulting in a difficult move within the bed?N107/23/2024 11:36 AM Krista Moss RNPatient is a candidate for a repositioning qjchatXv76/18/2025 11:36 AM Krista Moss RN * Vitals and MonitoringQuestionAnswerDate of AssessmentAuthorEtCO2 (mmHg)32 05/22/2025 4:10 PM Mercedes Moss LPN * BEE (kcal)AnswerDate of QwdmhkyqsqGshnpf786810/18/2025 11:39 AM Krista Moss RN * VitalsQuestionAnswerDate of AssessmentAuthorBP LocationRight arm05/22/2025 11:39 AM Krista Moss RNPatient PositionSemi-yrqwoaz6005/22/2025 11:39 AM Krista Moss RN * Vital SignsQuestionAnswerDate of ZidwheoisuGbdcnsDN403/6705/22/2025 6:00 PM Estefania Bejarano KTTiuyd2264/18/2025 6:00 PM Estefania Bejarano RNResp15 05/22/2025 6:00 PM Estefania Bejarano RNSpO29205/22/2025 6:00 PM Estefania Bejarano RNHeart Rate JenyxrBuhhtft24/18/2025 6:00 PM Estefania Bejarano RNMAP (mmHg)8205/22/2025 6:00 PM Estefania Bejarano RN * Height and WeightQuestionAnswerDate of YxhijintxoIbslbkGtmeyq0703/18/2025 11:39 AM Krista Moss RNWeight332805/22/2025 11:39 AM Krista Moss RNHeight UvevwbCezhoc76/18/2025 11:39 AM Krista Moss RNBSA (Calculated - sq m)2.1912 11:39 AM Krista Moss RNBMI (Calculated)28.212 11:39 AM Krista Moss RNWeight EmzdghTwkwvw60/18/2025 11:39 AM Krista Moss RNWeight in (lb) to have BMI = 68594.9107/23/2024 11:39 AM Krista Moss RN documented as of this encounter Mental Status * Intra-Procedural MonitoringQuestionAnswerEntry DateAuthorCardiac RhythmNormal sinus ffvjfn3805/22/2025 4:15 PM Mercedes Moss LPN * Site/Extremity AssessmentQuestionAnswerEntry DateAuthorSkin ColorPink 05/22/2025 1:39 PM Grace Lagunas RN * Skin Color/ConditionQuestionAnswerEntry DateAuthorSdeinse TempWarm;Dry05/22/2025 3:10 PM Perla Chen RN * Vitals and MonitoringQuestionAnswerEntry DateAuthorEtCO2 (mmHg)32107/23/2024 4:10 PM Mercedes Moss LPN * VitalsQuestionAnswerEntry DateAuthorBP LocationRight arm05/22/2025 11:39 AM Krista Moss RNPatient PositionSemi-mijckwd4705/22/2025 11:39 AM Krista Moss RN * Vital SignsQuestionAnswerEntry PdioOjznqwVY459/6705/22/2025 6:00 PM EST Estefania Somers MJIukde2701/18/2025 6:00 PM Estefania Bejarano RNResp15 05/22/2025 6:00 PM Estefania Bejarano OFWbL47731/18/2025 6:00 PM Estefania Bejarano RNO2 DeviceNone (Room air)05/22/2025 6:00 PM Estefania Bejarano RN Heart Rate TegkypDrtahdg53/18/2025 6:00 PM Estefania Bejarano RNMAP (mmHg)82 05/22/2025 6:00 PM Estefania Bejarano RN * RLE Peripheral Vascular AssessmentQuestionAnswerEntry DateAuthorR Posterior Tibial PulseUnable to hlxfox9805/22/2025 6:47 PM Estefania Bejarano RNR Dorsalis Pedis/Pedal PulseUnable to qinigf7805/22/2025 6:47 PM Estefania Bejarano RN * Pre-Sedation ChecklistQuestionAnswerEntry DateAuthorConsents VerifiedYes 05/22/2025 1:42 PM Perla Chen RN * Pain AssessmentQuestionAnswerEntry DateAuthorPain AssessmentNo/denies pain 05/22/2025 6:00 PM Estefania Bejarano RN * Urine Output/AssessmentQuestionAnswerEntry CdwgCekbtjGypgx26035/18/2025 6:47 PM Estefania Bejarano RN * Modified AldreteQuestionAnswerEntry JzbyGjcorhVqcdwkzm701/18/2025 3:40 PM EST Krista Morris RNRespiration2107/23/2024 3:40 PM Krista Moss RNCirculation2107/23/2024 3:40 PM Krista Moss RN Bxbmpxprjflil195/18/2025 3:40 PM Krista Moss RNOxygen Jwdcunjdot707/18/2025 3:40 PM Krista Moss RNModified Leigh Wzycj4584/18/2025 3:40 PM Krista Moss RN documented in this encounter Discharge Instructions * Discharge Instructions* Mercedes Rucker LPN - 05/22/2025 4:32 PM EST FEMORAL ACCESS: RIGHT GROIN Call your Vascular Doctor if you have any of the following symptoms or health problems after you leave the hospital: Sudden pain, swelling, and/or bright red bleeding at puncture site(s). If swelling and/or bright read bleeding occurs: STOP what you are doing, lie down and elevate your LEG. Apply firm pressure with1-2 fingers above the puncture site for approximately 10 minutes. Once the bleeding has stopped, gently clean the area and cover with a Band-Aid (remove after 24 hours) and call cardiology to inform them of bleeding. IF YOU ARE UNABLE TO STOP THE BLEEDING OR APPLY ADEQUATE PRESSURE, CALL IMMEDIATELY. Persistent tenderness/pain or swelling, discoloration; numbness/tingling, coolness or pain in the extremity when walking. MILD bruising/discoloration and/or tenderness is common during the healing process. Signs of infection: swelling, warmth around the wound, rash/redness, drainage, or fever greater than or equal to 100.4??F and/or chills Call if you have signs or symptoms of a stroke, chest pain/angina, difficulty breathing, you become very pale, uriarte/blue or if you become confused and cannot be easily awakened ACTIVITY POST PROCEDURE: No driving for 24 hours No alcohol for 24 hours You may shower after 24 hours. You should not take a bath or swim until the site is healed; about 1week No vigorous activity/exercise or straining for 2 days (48 hours) No heavy lifting - nothing greater than 2-5 pounds (approximately a ?? gallon of milk for 2 days (48 hours) No stooping or bending at the knees for 2 days (48 hours) You may return to work as directed by your Vascular doctor. Please call the office for instructions. PUNCTURE SITE CARE: Keep site clean and dry for 24 hours Apply pressure to the femoral access site if you need to cough, sneeze, laugh, or while having a bowel movement for 2 days (48 hours) Remove dressing on puncture site after 24 hours, at which time you may shower. Gently clean the area with soap and water; dry well and leave open to air. Do not apply powders, ointments, or lotions to the puncture site area until the wound has fully healed. Report any signs or symptoms of infectionto your physician. CLOSURE DEVICE INSTRUCTIONS: MYNX Normal Observations: It is normal to feel a small lump, about the size of a pea, and/or note MILD tenderness in the groin area. Some bruising or discomfort is common during the healing process. Carry the Patient Information Card in your wallet for 30 days Please see attached closure device pamphlet for additional information IF YOU RECEIVED A CARDIAC STENT: Avoid strenuous activity for one week following stent placement Carry your stent card with you at all times (given to you at discharge) Avoid dental work for 3 months and MRI for 8 weeks after stent placement Sedation Instructions: You were given medicine today to decrease anxiety, pain, or to make you drowsy during a medical procedure or test. Although you are now alert and ready to go home, some of the effects of the medicinemay last for several hours. You must have someone with you to drive home. You are advised to go directly home from the hospital. You may be groggy, dizzy, or less alert for the rest of the day. Common side effects include: drowsiness, dizziness, nausea, unsteady gait, and/or blurry vision. Because of these side effects, you should not work, drive, operate machines, or make important decisions for the next 24 hours. Also, do not drink alcohol, take tranquilizers, sleeping medication, orany non-prescription drugs for 24 hours; unless ordered by your physician. You are at a higher risk of falling for at least 24 hours after receiving sedation medications. Forthat reason: Take extra care when you get up Do not change positions quickly Do not ponce when you need to go to the bathroom or to answer the phone Ask for help if you feel unsteady when you try to walk Wear shoes with non-slip soles and low heels Diet: You may feel sick to your stomach and/or vomit after receiving sedation medications. Start with a light diet and/or clear liquid diet, which include things that are easy to swallow. If you are not able to keep anything down for 24 hours or more, please give your physician's office a call or go to the nearest emergency center. Medications: A detailed medication list is included with your discharge instructions. Please refer to that in regards to medications that were held, continued and/or discontinued. CALL YOUR DOCTOR, 911, OR GO TO THE NEAREST HOSPITAL EMERGENCY ROOM RIGHT AWAY: If you have difficulty breathing If your skin color is very pale or guillory/blue If you become confused or cannot be easily awakened Feeling faint or have a very bad headache Additional Instructions: If you smoke or have quit in the last 12 months: Tobacco is not food for your heart or lungs. Smoking increases your chances of getting a lung infection and makes shortness of breath worse. Tobacco causes your blood vessels to become smaller so your heart has to work harder to pump blood. For further assistance with quitting, you can contact [facility] at [phone] ( ), or consult your physician. *Discharge instructions were reviewed with patient and/or family and they verbalize understanding, including: follow-ups, medications, activity restrictions, and what to do for emergency. Opportunityhas been given for patient and/or family to voice any questions or concerns. * Attachments The following attachments cannot be sent through Care Everywhere. * Cilostazol (Setswana) documented in this encounter Medications at Time of Discharge MedicationSigDispense QuantityRefillsLast FilledStart DateEnd Date allopurinoL (ZYLOPRIM) 100 mg tablet Take 1 tablet (100 mg total) by mouth in the morning.05/13/2025 amitriptyline (ELAVIL) 25 mg tablet Take 1 tablet (25 mg total) by mouth in the morning.09/03/2023 aspirin 81 mg Take 1 tablet (81 mg total) by mouth in the morning.10/06/2023 atorvastatin (LIPITOR) 80 mg tablet Take 1 tablet (80 mg total) by mouth in the morning.10/06/2023 calcium carbonate (OS-RACHEL) 500 mg elemental (1,250 mg) chewable tablet Chew 1 tablet (500 mg total) and swallow in the morning. clopidogreL (PLAVIX) 75 mg tablet Take 1 tablet (75 mg total) by mouth in the morning. DULoxetine (CYMBALTA) 60 mg capsule Take 1 [...] 1 tablet (2 mg total) before bedtime. hydrOXYzine (ATARAX) 25 mg tablet Take 1 tablet (25 mg total) by mouth nightly.05/13/2025 magnesium oxide (MAGOX) 400 mg tablet Take 1 tablet (400 mg total) by mouth in the morning.05/03/2025 metFORMIN (GLUCOPHAGE) 1000 mg tablet Take 1 tablet (1,000 mg total) by mouth every 12 (twelve) hours. omeprazole (PriLOSEC) 40 mg capsule Take 1 capsule (40 mg total) by mouth in the morning. pregabalin (LYRICA) 200 mg capsule Take 1 capsule (200 mg total) by mouth in the morning and 1 capsule (200 mg total) at noon and 1 capsule (200 mg total) before bedtime.09/28/2023 rOPINIRole (REQUIP) 1 mg tablet Take 1 [...] mouth in the morning and at bedtime.06/26/2023 acetaminophen (TYLENOL EXTRA STRENGTH) 500 mg tablet Take 2 tablets (1,000 mg total) by mouth every 8 (eight) hours as needed for pain or fever. albuterol (PROAIR HFA) 90 mcg/actuation inhaler Inhale 2 puffs every 4 (four) hours as needed.11/23/2022 albuterol (PROVENTIL HFA;VENTOLIN HFA) 90 mcg/actuation inhaler Inhale 2 puffs in the morning and 2 puffs before bedtime. cilostazoL (PLETAL) 50 mg tablet Take 1 tablet (50 mg total) by mouth in the morning and 1 tablet (50 mg total) before bedtime. 180 tablet dulaglutide 0.75 mg/0.5 mL pen injector Inject 0.5 mL (0.75 mg total) under the skin once a week.07/12/2023 nitroglycerin (NITROSTAT) 0.[address] 1 tablet (0.4 mg total) under the tongue every 5 (five) minutes as needed for chest pain. ONETOUCH DELICA PLUS LANCET 33 gauge misc Inject 1 strip under the skin in the morning and 1 strip before bedtime. 08/16/2023 ONETOUCH ULTRA TEST strip 1 strip by other route every morning before breakfast.08/16/2023 ONETOUCH ULTRA2 METER misc 1 Unit by subconjunctival route in the morning.08/17/2023 tiotropium (SPIRIVA WITH HANDIHALER) 18 mcg per inhalation capsule Place 1 capsule (18 mcg total) into inhaler and inhale as needed.11/23/2022 documented as of this encounter H&P Notes * Marquis Galloway MD - 05/22/2025 1:07 PM EST VASCULAR SURGERY HISTORY & PHYSICAL Chief Concern Left lower extremity arterial disease Assessment & Plan Solomon Feldman is a 59 y.o. male with pertinent medical history of tobacco use, CKD, multilevel occlusive disease. Surgical history notable for previous angiogram with intervention and right mkbwt-wqy-yifd amputation. Patient has rest pain and tissue loss, specifically wounds to his left 5th and 4thtoes. PVR at outside hospital shows multilevel occlusive disease. Plan to proceed with CO2 angiogram with intervention as amenable today. Consent obtained. This patient will be discussed with the attending surgeon salesperson hearing aids, Dr. Montes. History of Present Illness Solomon Feldman is a 59 y.o. male who presents with with pertinent medical history of tobacco use, CKD, multilevel occlusive disease. Surgical history notable for previous angiogram with intervention and right dlyhc-dza-etpv amputation. Patient has rest pain and tissue loss, specifically wounds to his left 5th and 4th toes. PVR at outside hospital shows multilevel occlusive disease. The patient was seen and evaluated in the preoperative holding area. He is feeling well today. No recent illnesses or changes in his health. Questions regarding his procedure were answered to his satisfaction. Past Medical History Past Medical History: Diagnosis Date Chronic kidney disease Coronary artery disease Critical limb ischemia of right lower extremity ([facility]) Diabetes mellitus type 2, controlled ([facility]) GERD (gastroesophageal reflux disease) Hyperlipidemia Hypertension Past Surgical History Past Surgical History: Procedure Laterality Date AMPUTATION FOOT / TOE Right 09/29/2023 APPENDECTOMY BYPASS ARTERY FEMORAL POPLITEAL Right 11/08/2023 Performed by Padmini Montes MD at [facility] SPECIAL PROC CARDIAC CATHETERIZATION x4 heart stents COLONOSCOPY PROSTATE SURGERY SPINE SURGERY Vascular Invasive Right lower extremity angiogram with intervention/stent Right 11/07/2023 Performed by Padmini Montes MD at [facility] CARDIAC CATH LABS Allergies Allergies Allergen Reactions Penicillins Anaphylaxis and Hives Propoxyphene Darvocet Isosorbide Dinitrate Other (See Comments) Headache Latex Dermatitis, Itching and Rash Social History Social History Socioeconomic History Marital status: Spouse name: Not on file Number of children: Not on file Years of education: Not on file Highest education level: Not on file Occupational History Not on file Tobacco Use Smoking status: Every Day Current packs/day: 1.00 Average packs/day: 1 pack/day for 43.6 years (43.6 ttl pk-yrs) Types: Cigarettes Start date: 10/05/1981 Smokeless tobacco: Never Vaping Use Vaping status: Never Used Substance and Sexual Activity Alcohol use: Yes Comment: occassionally Drug use: Never Sexual activity: Defer Other [...] Risk (11/07/2023) Housing Instability Housing Instability: No Family History History reviewed. No pertinent family history. Primary Care Physician No primary care provider on file. Review Of Systems Review of Systems Objective Vital signs: Vitals: 05/22/25 1139 BP: 136/80 Pulse: 60 Resp: 20 SpO2: 94% Weight: 94.3 kg (208 lb) Height: 182.9 cm (6') Temperature Range Last 24 Hours : No data recorded Admit Weight: 94.3 kg (208 lb) Body mass index is 28.21 kg/m??. Last Weights: Wt Readings from Last 3 Encounters: 05/22/25 94.3 kg (208 lb) 04/03/25 93.2 kg (205 lb 6.4 oz) 02/27/25 93.9 kg (207 lb) I/O's:No intake or output data in the 24 hours ending 05/22/25 1193 Physical Exam Physical Exam Constitutional: General: He is not in acute distress. Appearance: Normal appearance. He is normal weight. He is not ill-appearing. HENT: Head: Normocephalic and atraumatic. Cardiovascular: Rate and Rhythm: Normal rate and regular rhythm. Pulmonary: Effort: Pulmonary effort is normal. No respiratory distress. Abdominal: General: Abdomen is flat. There is no distension. Palpations: Abdomen is soft. There is no mass. Tenderness: There is no abdominal tenderness. There is no guarding or rebound. Hernia: No hernia is present. Musculoskeletal: Comments: Right lower extremity status post mfwlb-qjx-swsx amputation Left lower extremity with small ulcerations to the 4th and 5th digit, dry Skin: General: Skin is warm and dry. Neurological: General: No focal deficit present. Mental Status: He is alert and oriented to person, place, and time. Mental status is at baseline. Psychiatric: Mood and Affect: Mood normal. Behavior: Behavior normal. Labs Invalid input(s): CHLORIDE Cultures Microbiology Results (last 21 days) No results found for the last 504 hours. Recent Studies No results found. Current Medications Current Infusions lactated ringer's, 75 mL/hr Home Medications Current Outpatient Medications Medication Instructions acetaminophen (TYLENOL EXTRA STRENGTH) 1,000 mg, Every 8 hours PRN albuterol (PROAIR HFA) 90 mcg/actuation inhaler 2 puffs, Every 4 hours PRN albuterol (PROVENTIL HFA;VENTOLIN HFA) 90 mcg/actuation inhaler 2 puffs, 2 times daily allopurinoL (ZYLOPRIM) 100 mg, Daily amitriptyline (ELAVIL) 25 mg, Daily aspirin 81 mg, oral, Daily atorvastatin (LIPITOR) 80 mg, oral, Daily calcium carbonate (OS-RACHEL) 500 mg elemental (1,250 mg) chewable tablet 1 tablet, Daily clopidogreL (PLAVIX) 75 mg, Daily dulaglutide 0.75 mg, Weekly DULoxetine (CYMBALTA) 60 mg, Daily empagliflozin (JARDIANCE) 10 mg, Daily ferrous sulfate 325 (65 FE) mg tablet 1 tablet, Daily glimepiride (AMARYL) 2 mg, 2 times daily hydrOXYzine (ATARAX) 25 mg, Nightly magnesium oxide (MAGOX) 400 mg, Daily metFORMIN (GLUCOPHAGE) 1,000 mg, Every 12 hours nitroglycerin (NITROSTAT) 0.4 mg, Every 5 min PRN omeprazole (PRILOSEC) 40 mg, Daily ONETOUCH DELICA PLUS LANCET 33 gauge misc 1 strip, 2 times daily ONETOUCH ULTRA TEST strip 1 strip, Every morning before breakfast ONETOUCH ULTRA2 METER misc 1 Unit, Daily pregabalin (LYRICA) 200 mg, 3 times daily rOPINIRole (REQUIP) 1 mg, 3 times daily SITagliptin phosphate (JANUVIA) 100 mg, Daily tamsulosin (FLOMAX) 0.4 mg, 2 times daily tiotropium (SPIRIVA WITH HANDIHALER) 18 mcg, inhalation, As needed Marquis Galloway MD Resident - Vascular Surgery Cosigned by Padmini Montes MD at 05/23/2025 4:42 PM EST Associated attestation - Padmini Montes MD - 05/23/2025 4:42 PM EST I saw and evaluated the patient on the date of service, and reviewed the relevant investigations and tests. I agree with the findings and the plan of care as documented in the Resident Physician???s note documented in this encounter Miscellaneous Notes * Perioperative Nursing Note - Estefania Somers RN - 05/22/2025 7:03 PM EST Pt ambulated to the restroom. Pt denies chest pain and shortness of breath. Pt groin site is free from bleeding and hematoma. Pt dressing is clean, dry and intact. Pt IV removed. Pt verbalizes understanding of discharge instructions. * Op Note - Padmini Montes MD - 05/22/2025 1:28 PM EST Images from the original note were not included. Vascular Invasive Height: 182.9 cm (6') Weight: 94.3 kg (208 lb) Blood Pressure: 136/80 Heart Rate: 60 Date of Study: 05/22/25 Ordering Provider: Padmini Montes MD Clinical Indications: 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) [I70.262 (ICD-10-CM)], PAD (peripheral artery disease) [I73.9 (ICD-10-CM)] Performing Physician Performing Staff Primary: Padmini Montes MD Scrub Person: Jackelin Birmingham Documenter: Perla Jaime RN Can Slider Primary: Grace Valverde RN Patient Information Patient Name Solomon Feldman Legal Sex Male Procedures Lower Ext Angiogram-co2 Conclusion Recommendations: Aspirin Plavix and cilostazol. Pre Procedure Diagnosis critical limb ischemia Post Procedure Diagnosis Assist Devices Assist Devices Procedure Details Patient Name: Solomon Feldman Medical Record: [id number] Date of Operation: 05/23/2025 Preoperative Diagnosis: Left lower extremity critical limb threatening ischemia with tissue loss Postoperative Diagnosis: Same Procedure: 1. Ultrasound-guided access and closure of the right common femoral artery with images saved to the PACS 2. Placement of catheter in the abdominal aorta and CO2 aortogram and pelvic angiogram 3. Selective left lower extremity CO2 angiogram with placement of a catheter in the common femoral artery and popliteal arteries 4. Balloon angioplasty of in stent high-grade stenosis of the external and common iliac arteries using 7 mm drug coated balloon 5. Recanalization of chronic totally occluded SFA with atherectomy using [employer] atherectomy devicewith balloon angioplasty and stenting using 7 by 100 self expanding bare metal stent post dilated with a 6 mm balloon Surgeon: Padmini Montes MD Anesthesia: Conscious sedation then under my supervision Estimated Blood Loss: Minimal Complications: None; patient tolerated the procedure well. Implants: 7 x 100 bare metal self expanding stent Specimens: None Disposition: PACU - hemodynamically stable. Findings: Previously stented external iliac artery in stent high-grade stenosis treated successfully with drug coated balloon angioplasty. Recanalization of chronic totally occluded SFA with atherectomy balloon angioplasty and stenting with no residual stenosis. All the procedure done with a CO2 angiogram with no contrast. The patient has 2 runoffs [id number] with the major runoff being the posterior tibial artery and there was also patent peroneal artery. History: This is a 59 y.o. male Solomon Feldman with history of right below-knee amputation and left nonhealing wound. Noninvasive testing shows evidence of multilevel occlusive disease. He is here gustavo angiogram and intervention. Because of severe CKD we did a CO2 angiogram procedure. Operative Details: The patient was seen in the pre-procedure holding area. The benefits, alternatives and risks of the procedure were explained to the patient. Consent was obtained and there was no site to teja. The patient was then taken to the slab off mill tender and transferred to the table. Bilateral groins were prepped and the patient was draped. A time out was performed. After the patients Cardiopulmonary status was assessed and he was deemed a candidate for moderate sedation they received 1 mg of versed and 50 mcg of fentanyl. After using ultrasound guidance to identify the right common femoral artery, 1% lidocaine was infiltrated into the skin and subcutaneous tissues. A micropuncture needle was used to access the artery then the microwire was advanced and confirmed with fluoroscopy. The microsheath was then placed over the wire in a seldinger fashion. A j-wire was advanced into the aorta under fluoroscopic guidance and a 4 FR sheath was advanced over the wire. This was flu shed with heparinized saline. A 4 FR Omniflush catheter was then positioned above the renal arteries between the 1st and 2nd lumbar vertebrae. The power injector was connected and subtraction angiography of the aorta, iliac arteries and left lower extremities was performed in AP and oblique projections to optimize image quality and identification of vessel branch points. Findings are detailed above. The primary area of interest was the junction of the common and external iliac arteries. And also the superficial femoral artery. A 6 Fr sheath was placed over the aortic bifurcation and the patient was systemically heparinized with 5000 units intravenous heparin. We were able to successfully cross the SFA and confirmed crossing the lesion and back in true lumen. Rode res atherectomy device was used to open up the SFA followed by balloon angioplasty. Completion angiogram showed recoil in the camp site in the mid SFA. This was successfully stented using 7 mm stent. Completion angiogram looked very good with no residual stenosis in the SFA. We then paid our attention to the iliac arteries. Drug coated balloon angioplasty was used. 7 mm balloon was used with no significant residual stenosis. Less than 10%. The end patient had palpable PT pulse. Access site was closed using Mynx patient tolerated the procedure very well and sent to the PACU in good condition At the completion of the procedure, a sheath angiogram was performed. Mynx was used to obtain hemostasis. Sterile dressing was placed. Patient tolerated the procedure well. Complications No complications were associated with this study. Documented by Padmini Montes MD - 05/23/2025 5:53 PM Measurements Cath EF Calculated: Implants Name ID Temporary Type Supply STENT VSC INNOVA 7MM 100MM 75CM 6FR DLV SYS RDPQ SLF XPD RPL [id number] [id number] - [id number] No Stent STENT VSC INNOVA 7MM 100MM 75CM 6FR DLV SYS RDPQ SLF XPD RPL [id number] [id number] Vascular Access Sheath inserted in the right femoral artery. Medications Time Date Event Details User 1:50 PM 05/22/25 lidocaine PF (XYLOCAINE) 10 mg/mL (1 %) injection Ordered and Given 5 mL Given Rate: 0 Route: intradermal Site: Right Groin MO 1:51 PM 05/22/25 midazolam (PF) (VERSED) injection Ordered and Given 1 mg Given Rate: 0 Route: intravenous KK 1:52 PM 05/22/25 fentaNYL (SUBLIMAZE) injection Ordered and Given 50 mcg Given Rate: 0 Route: intravenous KK 2:03 PM 05/22/25 heparin (porcine) injection Ordered and Given 9,000 Units Given Rate: 0 Route: intravenous KK 2:12 PM 05/22/25 fentaNYL (SUBLIMAZE) injection Given 50 mcg Given Rate: 0 Route: intravenous KK 2:12 PM 05/22/25 midazolam (PF) (VERSED) injection Given 1 mg Given Rate: 0 Route: intravenous KK 2:34 PM 05/22/25 fentaNYL (SUBLIMAZE) injection Given 50 mcg Given Rate: 0 Route: intravenous KK 2:34 PM 05/22/25 midazolam (PF) (VERSED) injection Given 1 mg Given Rate: 0 Route: intravenous KK 2:39 PM 05/22/25 fentaNYL (SUBLIMAZE) injection Given 50 mcg Given Rate: 0 Route: intravenous KK 2:39 PM 05/22/25 midazolam (PF) (VERSED) injection Given 1 mg Given Rate: 0 Route: intravenous KK Moderate sedation total time Under my direct supervision, intravenous moderate sedation was administered during the course of this procedure with continuous monitoring of hemodynamic parameters. Moderate sedation started at 1:51PM and total time of moderate sedation was 78 minutes. Case Tracking Events Event Time In Moderate Sedation Start 05/22/25 1351 Moderate Sedation Stop 05/22/25 1509 Estimated Blood Loss Flowsheet Row Most Recent Value Estimated Blood Loss 10 mL on 05/22/2025 1510 Radiation Dose Tracking Panel Fluoroscopy (mGy) mDAP (mGy/cm2) Fluoro Time (minutes) Physician Panel 1 12.500 37086.000 15.600 Padmini Montes MD PRESSURES AIR REST Systolic (mmHg) Diastolic (mmHg) Mean (mmHg) A Wave (mmHg) V Wave (mmHg) DAP (mmHg) Ao 0 0 0 Performing Department [facility] - Cardiac Cath [address] [place] [address] * Pre-Sedation Documentation - Marquis Galloway MD - 05/22/2025 1:10 PM EST Pre Procedure Evaluation: H&P was reviewed and the patient was examined. No change has occurredin the patient's condition since the H&P was completed. 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 Cardiovascular Instability: No Heart Failure: No Stress Test Performed: No Cardiac CTA: No Cardiac Arrest Out of Hospital: No Cardiac Arrest at Transferring Facility: No documented in this encounter Plan of Treatment DateTypeDepartmentCare Team (Latest Contact Info)Mycuveykbpx41/13/2026 1:00 PM ESTAppointment [facility] [address] [place] [id number] Padmini Montes MD [address], [address] [place] [address] 06/19/2025 11:20 AM ESTOffice Visit [facility] [address] [place] [address] Padmini Montes MD [address], [address] [place] [address] documented as of this encounter Goals GoalPatient Goal TypeAssociated ProblemsRecent ProgressPatient-Stated?Author Patient is planning to transition back to SNF at discharge. Chandrika Weber LSW Note: Evaluation of progress towards goal: Patient is planning to transition back to SNF at discharge. documented as of this encounter Procedures Procedure NamePriorityDate/TimeAssociated DiagnosisCommentsVASCULAR INVASIVE Ytbnxlk2705/22/2025 3:09 PM EST 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 ([facility]) PAD (peripheral artery disease) PORTABLE VTIEITRBhwyaov44/18/2025 11:33 AM EST POCT BUN, ETKPQLggaglg54/18/2025 11:33 AM EST documented in this encounter Results * VASCULAR INVASIVE (05/22/2025 3:09 PM EST)Anatomical RegionLateralityModality X-Ray AngiographySpecimen (Source)Anatomical Location / LateralityCollection Method / VolumeCollection TimeReceived Time Narrative 05/23/2025 5:53 PM EST Recommendations: Aspirin Plavix and cilostazol. Procedure Details Patient Name: Solomon Feldman Medical Record: [id number] Date of Operation: 05/23/2025 Preoperative Diagnosis: Left lower extremity critical limb threatening ischemia with tissue loss Postoperative Diagnosis: Same Procedure: 1. Ultrasound-guided access and closure of the right common femoral artery with images saved to the PACS 2. Placement of catheter in the abdominal aorta and CO2 aortogram and pelvic angiogram 3. Selective left lower extremity CO2 angiogram with placement of a catheter in the common femoral artery and popliteal arteries 4. Balloon angioplasty of in stent high-grade stenosis of the external and common iliac arteries using 7 mm drug coated balloon 5. Recanalization of chronic totally occluded SFA with atherectomy using [employer] atherectomy devicewith balloon angioplasty and stenting using 7 by 100 self expanding bare metal stent post dilated with a 6 mm balloon Surgeon: Padmini Montes MD Anesthesia: Conscious sedation then under my supervision Estimated Blood Loss: Minimal Complications: None; patient tolerated the procedure well. Implants: 7 x 100 bare metal self expanding stent Specimens: None Disposition: PACU - hemodynamically stable. Findings: Previously stented external iliac artery in stent high-grade stenosis treated successfully with drug coated balloon angioplasty. Recanalization of chronic totally occluded SFA with atherectomy balloon angioplasty and stenting with no residual stenosis. All the procedure done with a CO2 angiogram with no contrast. The patient has 2 runoffs [id number]-[id number] with the major runoff being the posterior tibial artery and there was also patent peroneal artery. History: This is a 59 y.o. male Solomon Feldman with history of right below-knee amputation and left nonhealing wound. Noninvasive testing shows evidence of multilevel occlusive disease. He is here gustavo angiogram and intervention. Because of severe CKD we did a CO2 angiogram procedure. Operative Details: The patient was seen in the pre-procedure holding area. The benefits, alternatives and risks of the procedure were explained to the patient. Consent was obtained and there was no site to teja. The patient was then taken to the slab off mill tender and transferred to the table. Bilateral groins were prepped and the patient was draped. A time out was performed. After the patients Cardiopulmonary status was assessed and he was deemed a candidate for moderate sedation they received 1 mg of versed and 50 mcg of fentanyl. After using ultrasound guidance to identify the right common femoral artery, 1% lidocaine was infiltrated into the skin and subcutaneous tissues. A micropuncture needle was used to access the artery then the microwire was advanced and confirmed with fluoroscopy. The microsheath was then placed over the wire in a seldinger fashion. A j-wire was advanced into the aorta under fluoroscopic guidance and a 4 FR sheath was advanced over the wire. This was flu shed with heparinized saline. A 4 FR Omniflush catheter was then positioned above the renal arteries between the 1st and 2nd lumbar vertebrae. The power injector was connected and subtraction angiography of the aorta, iliac arteries and left lower extremities was performed in AP and oblique projections to optimize image quality and identification of vessel branch points. Findings are detailed above. The primary area of interest was the junction of the common and external iliac arteries. And also the superficial femoral artery. A 6 Fr sheath was placed over the aortic bifurcation and the patient was systemically heparinized with 5000 units intravenous heparin. We were able to successfully cross the SFA and confirmed crossing the lesion and back in true lumen. Rode res atherectomy device was used to open up the SFA followed by balloon angioplasty. Completion angiogram showed recoil in the camp site in the mid SFA. This was successfully stented using 7 mm stent. Completion angiogram looked very good with no residual stenosis in the SFA. We then paid our attention to the iliac arteries. Drug coated balloon angioplasty was used. 7 mm balloon was used with no significant residual stenosis. Less than 10%. The end patient had palpable PT pulse. Access site was closed using Mynx patient tolerated the procedure very well and sent to the PACU in good condition At the completion of the procedure, a sheath angiogram was performed. Mynx was used to obtain hemostasis. Sterile dressing was placed. Patient tolerated the procedure well. Authorizing ProviderResult TypeResult StatusLake Regional Health System CARDIAC CATH ORDERABLESFinal Result * (ABNORMAL) Portable Glucose Istat (05/22/2025 11:33 AM EST)ComponentValueRef RangeTest MethodAnalysis TimePerformed AtPathologist SignatureCENTRAL VER[facility]ONT [facility] Upwzrxj410 (H)65 - 99 mg/dL05/22/2025 3:24 PM [facility] LABORATORYSpecimen (Source)Anatomical Location / LateralityCollection Method / VolumeCollection TimeReceived Time05/22/2025 11:33 AM EST05/22/2025 3:24 PM EST Narrative Authorizing ProviderResult TypeResult StatusHill[facility] – ClaremoreOINT OF CARE TEST ORDERABLESFinal ResultPerforming OrganizationAddressCity/State/ZIP CodePhone Number [facility] [address] [place] [address], * (ABNORMAL) POCT BUN, Creat (05/22/2025 11:33 AM EST)ComponentValueRef Range Test MethodAnalysis TimePerformed AtPathologist SignaturePO BUN25(H)6 - 23 mg/dL05/22/2025 3:25 PM [facility] LABORATORYPOC Creatinine2.0(H)0.7 - 1.2 mg/dL05/22/2025 3:25 PM [facility]ATORYP[facility] EGFR Non-Race Elkewpsbg69(L)>=60 ml/min/1.73sq.m107/23/2024 3:25 PM [facility] LABORATORYComment: Reported eGFR is based on the CKD-EPI 2020 equation that does not use a race coefficient. Specimen (Source)Anatomical Location / LateralityCollection Method / Volume Collection TimeReceived Time05/22/2025 11:33 AM EST05/22/2025 3:24 PM EST Narrative Authorizing ProviderResult TypeResult StatusMohamed Jennifer Montes MDPOINT OF CARE TEST ORDERABLESFinal ResultPerforming OrganizationAddressCity/State/ZIP CodePhone Number [facility] [address] [place] [address], documented in this encounter Visit Diagnoses Diagnosis PAD (peripheral artery disease)- Primary Unspecified peripheral vascular disease 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) 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) PAD (peripheral artery disease) Unspecified peripheral vascular disease documented in this encounter Admitting Diagnoses Diagnosis 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) PAD (peripheral artery disease) Unspecified peripheral vascular disease documented in this encounter Administered Medications Medication OrderMAR ActionAction DateDoseRateSite lactated ringers infusion 75 mL/hr, intravenous, Continuous, Starting on Qi 05/22/25 at 1115, For 1 day, Pre-op documented in this encounter Active and Recently Administered Medications Times are shown in EST.Medication Order// lactated ringers infusion 75 mL/hr, intravenous, Continuous, Starting on Qi 05/22/25 at 1115, For 1 day, Pre-op * 1115 (Due) Medication Order/ fentaNYL (SUBLIMAZE) injection (CANCELED) Code/trauma/sedation medication, Starting on Qi 05/22/25 at 1352, Intra- Procedure (CV) * 1352 (Given - Provider: Grace Valverde RN) * 1412 (Given - Provider: Grace Valverde RN) * 1434 (Given - Provider: Grace Valverde RN) * 1439 (Given - Provider: Grace Valverde RN) heparin (porcine) injection (CANCELED) Code/trauma/sedation medication, Starting on Qi 25 at 1403, Intra- Procedure (CV) * 1403 (Given - Provider: Grace Valverde RN) lidocaine PF (XYLOCAINE) 10 mg/mL (1 %) injection (CANCELED) Code/trauma/sedation medication, Starting on Qi 05/22/25 at 1350, Intra- Procedure (CV) * 1350 (Given - Provider: Padmini Montes MD) midazolam (PF) (VERSED) injection (CANCELED) Code/trauma/sedation medication, Starting on Qi 05/22/25 at 1351, Intra- Procedure (CV) * 1351 (Given - Provider: Grace Valverde RN) * 1412 (Given - Provider: Grace Valverde RN) * 1434 (Given - Provider: Grace Valverde RN) * 1439 (Given - Provider: Grace Valverde, RN) documented in this encounter Additional Health Concerns AssessmentNoted TimePHQ-9 Depression Total Score: 8:40 PM EDT documented as of this encounter
--- OUTSIDE RECORDS SUMMARY | 2025-05-22 13:20 | XMS_ITS | Encounter Summary ---
Author Organization [facility] [employer] [facility] tem Address [id number] [address] 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) PAD (peripheral artery disease) critical limb ischemia Procedures Lower Ext Angiogram-co2 Padmini Montes MD [address], [address] [address] Phone: tel: fax: Referral IDStatusReasonStart DateExpiration DateVisits RequestedVisits [id number] Encounter Details DateTypeDepartmentCare Team (Latest Contact Info)Gsxvjcwcmri66/18/2025 1:20 PM EST - 05/22/2025 2:20 PM ESTSurgery [facility] [address] [place] [phone] Padmini Montes MD [address], [address] [address] Lower Ext Angiogram-co2 Social History Tobacco UseTypesPacks/DayYears UsedDateSmoking Tobacco: Every IceGaharxicus902.6 Started: 10/05/1981Smokeless Tobacco: NeverAlcohol UseStandard Drinks/Week CommentsYes0 (1 standard drink = 0.6 oz pure alcohol)occassionallyAHC Utilities AnswerDate RecordedIn the past 12 months has the electric, gas, oil, or water Mutualink threatened to shut off services in your [...] as a part of a household?No11/07/2023hildcareAnswerDate Recorded IcubcaqrlYignqkf74/10/2019EmploymentAnswerDate RecordedEmploymentUnknown 11/12/2018Hunger ScreeningAnswerDate RecordedWithin the past 12 months we worried whether our food would run out before we got money to buy more.Never True02/29/2024Within the past 12 months the food we bought just didn't last and we didn't have money to get more.Never True02/29/2024Sex and Gender Information ValueDate RecordedSex Assigned at BirthNot on fileLegal YffKrpm7801/06/2015 1:04 PM EDTGender IdentityNot on fileSexual OrientationNot on filedocumented as of this encounter Last Filed Vital Signs Vital SignReadingTime TakenCommentsBlood Nepswscc807/8205/22/2025 1:43 PM EST Mbzhq516505/22/2025 1:43 PM ESTTemperature--Respiratory Imlu8453 1:43 PM ESTOxygen Kffpmutili98%05/22/2025 1:43 PM ESTInhaled Oxygen Concentration-- Awruod99.3 kg (208 lb)05/22/2025 11:39 AM YPAQvpyns582.9 cm (6')05/22/2025 11:39 AM ESTBody Mass Index28.21107/23/2024 11:39 AM ESTdocumented in this encounter Functional Status * IP Hunger/Food Insecurity ScreeningQuestionAnswerDate of AssessmentAuthor Hunger Screening Complete?Yes05/22/2025 11:38 AM Krista Moss RN If Eligible: Received Food BoxNot Offered to Jkzkvzw7805/22/2025 11:38 AM Krista Mitchell RN * AN Cardiac QuestionsQuestionAnswerDate of AssessmentAuthorCP when climbing a flight of stairs or walking a city block?N/A107/23/2024 11:39 AM Krista Moss RNSOB when climbing a flight of stairs or walking a city block?N/A107/23/2024 11:39 AM Krista Moss RN * Intra-Procedural MonitoringQuestionAnswerDate of AssessmentAuthorRichmond Agitation Sedation Scale (RASS) 4:15 PM Mercedes Moss LPN Cardiac RhythmNormal sinus klmwuc1605/22/2025 4:15 PM Mercedes Moss LPN * Site/Extremity AssessmentQuestionAnswerDate of AssessmentAuthorCapillary RefillLess than 3 uchfmgm3405/22/2025 1:43 PM Perla Chen RNRt Distal Pulse AssessmentUnable to Chbjil1205/22/2025 3:10 PM Perla Chen RNLt Distal Pulse RgwucszqbdZgbgsxb73/18/2025 1:43 PM Perla Chen RNMotor Function/Sensation AssessmentIntact;Zlrahcug55/18/2025 3:10 PM Perla Chen RNSkin XxsmoJwna08/18/2025 1:39 PM Grace Lagunsa RN * Skin Color/ConditionQuestionAnswerDate of AssessmentAuthorSkin TempWarm;Dry 05/22/2025 3:10 PM Perla Chen RNSkin Color/Condition (WDL)WDL 05/22/2025 3:10 PM Perla Chen RN * Vitals and MonitoringQuestionAnswerDate of AssessmentAuthorPatient ObservationsBP eeowkfc3505/22/2025 4:15 PM Mercedes Moss LPNEtCO2 (mmHg) [address]/23/2024 4:10 PM Mercedes Moss, VISITOR SERVICES ASSOCIATE * PainQuestionAnswerDate of AhhmobaeakPnskiyZplsEv75/18/2025 3:10 PM Perla Chen RN * BEE (kcal)AnswerDate of EdawqqifwdXyxbkz038742/18/2025 11:39 AM Krista Moss RN * VitalsQuestionAnswerDate of AssessmentAuthorBP LocationRight arm05/22/2025 11:39 AM Krista Moss RNPatient PositionSemi-lphvomb5205/22/2025 11:39 AM Krista Moss RN * Vital SignsQuestionAnswerDate of MzrqbfwhjmSgqnkoCR857/6705/22/2025 6:00 PM Estefania Bejarano, UIOvrcd8959/18/2025 6:00 PM Estefania Bejarano CICztj79 05/22/2025 6:00 PM Estefania Bejarano, QAOlT50622/18/2025 6:00 PM Estefania Bejarano, RNO2 DeviceNone (Room air)05/22/2025 6:00 PM Estefania Bejarano, azure architect Rate DdixdvJzjsmhg11/18/2025 6:00 PM Estefania Bejarano, RNMAP (mmHg)82 05/22/2025 6:00 PM Estefania Bejarano, RN * Height and WeightQuestionAnswerDate of QfavffqnaqYhdcfhXxulcp6678/18/2025 11:39 AM Krista Moss RNWeight332805/22/2025 11:39 AM Krista Moss RNHeight LrqduxJsyoan38/18/2025 11:39 AM Krista Msos RNBSA (Calculated - sq m)2.19107/23/2024 11:39 AM Krista Moss RNBMI (Calculated)28.212 11:39 AM Krista Moss RNWeight VslrnjSqfltd08/18/2025 11:39 AM Krista Moss RNWeight in (lb) to have BMI = 22391.9107/23/2024 11:39 AM Krista Moss RN * RLE Peripheral Vascular AssessmentQuestionAnswerDate of AssessmentAuthorR Posterior Tibial PulseUnable to cxygte4905/22/2025 6:47 PM Estefania Bejarano RNR Dorsalis Pedis/Pedal PulseUnable to jtcamn8105/22/2025 6:47 PM Estefania Bejarano RN * [place] Fall RiskQuestionAnswerDate of AssessmentAuthorHistory of Falling0 05/22/2025 11:38 AM Krista Moss RNSecondary Diagnosis0 05/22/2025 11:38 AM Krista Moss RNAmbulatory Nukx742 11:38 AM Krista Moss RNIntravenous Therapy/Heparin/Saline Lock 11:38 AM Krista Moss RNGait/Transferring0 05/22/2025 11:38 AM Krista Moss RNMental Ehlttw480 11:38 AM Krista Moss RNScore20107/23/2024 11:38 AM Krista Moss RN * Abuse Indicator ScreeningQuestionAnswerDate of AssessmentAuthorSafe in HomeYes 05/22/2025 11:36 AM Krista Moss RNDo you feel safe in your relationship(s)?Yes05/22/2025 11:36 AM Krista Moss RNAre you in immediate danger?No05/22/2025 11:36 AM Krista Moss RN * Psychosocial ConsultsQuestionAnswerDate of AssessmentAuthorSpiritual Care Consult GdnoizCi04/18/2025 11:36 AM Krista Moss RNSocial Services Consult PmhkhyYr99/18/2025 11:36 AM Krista Moss, trolley wire installer Consult OzllbdKu68/18/2025 11:36 AM Krista Moss RN * NPOQuestionAnswerDate of AssessmentAuthorTime of last hwkyuz6357056/18/2025 11:36 AM Krista Moss RNDate of last enkken4356682/18/2025 11:36 AM Krista Moss RNDate of last qnmme8757888/18/2025 11:36 AM Krista Mitchell, LEENATime of last nzhjo8349967/18/2025 11:36 AM Krista Moss RN * Harm [...] in a life-threatening situation?Yes05/22/2025 11:36 AM Krista Moss, LEENA * Adult Sepsis RiskQuestionAnswerDate of AssessmentAuthorRisk of Sepsis v.20.7 05/22/2025 7:01 PM Janet, Clindoc * #1 Site AssessmentQuestionAnswerDate of AssessmentAuthorDistal Pulse HkwpzmquqrAtfel93/18/2025 6:47 PM Estefania Bejarano RNPressure DeviceManual 05/22/2025 6:00 PM Estefania Bejarano RNSite LocationRight ffgsgpn0005/22/2025 6:47 PM Estefania Bejarano RNSite InspectionDry;Intact;Soft;Non-tender to palpation;Clean05/22/2025 6:47 PM ESTHollins, Estefania, RNSite DressingOther (Comment)05/22/2025 6:47 PM Estefania Bejarano RNClosure GcvsbtJuiq23/18/2025 6:47 PM Estefania Bejarano RN * Pre-Sedation ChecklistQuestionAnswerDate of AssessmentAuthorConsents Verified Yes05/22/2025 1:42 PM Perla Chen RN * Pain AssessmentQuestionAnswerDate of AssessmentAuthorPain AssessmentNo/denies pain05/22/2025 6:00 PM Estefania Bejarano, LEENA * Patient Belongings at Bedside / StretcherQuestionAnswerDate of Assessment AuthorClothingPants;Shirt;Footwear;Socks;Nctcebiexy36/18/2025 11:39 AM Krista Mitchell RNBelongings at CsrwgmrSqakkfvc86/18/2025 11:39 AM Krista Mitchell, LEENA * Patient Belongings Sent HomeQuestionAnswerDate of AssessmentAuthorAll Belongings Sent BaibUa2805/22/2025 11:39 AM Krista Moss RN Belongings Sent CqymNdkcnwdn85/18/2025 11:39 AM Krista Moss RN * Fall Risk ScaleQuestionAnswerDate of AssessmentAuthorFall Risk ScaleMorse Fall Risk Scale05/22/2025 11:38 AM Krista Moss RN * Urine Output/AssessmentQuestionAnswerDate of GnnezqhvzjJbsckyPmoiu422 05/22/2025 6:47 PM Estefania Bejarano RN * Palliative Care AssessmentQuestionAnswerDate of AssessmentAuthorDoes patient have a potentially life-limiting or life-threatening condition?No05/22/2025 11:36 AM Krista Moss RN * [place] Suicide BehaviorQuestionAnswerDate of AssessmentAuthor6. Have you ever done anything, started to do anything, or prepared to do anything to end your life?No05/22/2025 11:38 AM Krista Moss, LEENA * Suicidal Ideation (Last Month)QuestionAnswerDate of AssessmentAuthor1. In the last month have you wished you were or wished you could go to sleep and not wake up?No05/22/2025 11:38 AM Krista Moss, LEENA2. In the last month have you actually had any thoughts of killing yourself?No05/22/2025 11:38 AM Krista Moss RNAble to assess?Yes05/22/2025 11:38 AM Krista Moss, LEENA * Vitals TimerQuestionAnswerDate of AssessmentAuthorRestwinfield Vitals TimerYes 05/22/2025 6:00 PM Estefania Bejarano [...] 05/22/2025 11:36 AM Krista Moss RN * [place] Suicide Risk LevelAnswerDate of AssessmentAuthorNot at Suicide Risk 05/22/2025 11:38 AM Krista Moss, LEENA * Safe Patient HandlingQuestionAnswerDate of AssessmentAuthorCan the patient stand, pivot & walk with no physical assistance from staff with low risk of falling?Y107/23/2024 11:36 AM Krista Moss RNSPH equipment not needed; may useOther (comment)05/22/2025 11:36 AM Krista Moss RNSafe Patient Handling Level:Wlpmbkoztpx02/18/2025 11:36 AM Krista Moss, LEENA * Positioning Assistance RequiredQuestionAnswerDate of AssessmentAuthorPatient requires assistance with moving up in bed, or turning?N107/23/2024 11:36 AM Krista Mitchell RNPatient is unresponsive?N107/23/2024 11:36 AM Krista Mitchell RNPatient requires assistance with lateral transfers?N 05/22/2025 11:36 AM Krista Moss RNPatient has fragile skin or decubitus ulcer?N107/23/2024 11:36 AM Krista Moss RNOther circumstances resulting in a difficult move within the bed?N107/23/2024 11:36 AM Krista Moss RNPatient is a candidate for a repositioning kdgssiOx53/18/2025 11:36 AM Krista Moss RN * Vitals and MonitoringQuestionAnswerDate of AssessmentAuthorEtCO2 (mmHg)32 05/22/2025 4:10 PM Mercedes Moss LPN * BEE (kcal)AnswerDate of MesgarilynOcwlap338140/18/2025 11:39 AM Krista Moss RN * VitalsQuestionAnswerDate of AssessmentAuthorBP LocationRight arm05/22/2025 11:39 AM Krista Moss RNPatient PositionSemi-nkwveuz6305/22/2025 11:39 AM Krista Moss RN * Vital SignsQuestionAnswerDate of CrlfnoebffMxffcvNL104/6705/22/2025 6:00 PM Estefania Bejarano RNPulse7605/22/2025 6:00 PM Estefania Bejarano RNResp15 05/22/2025 6:00 PM Estefania Bejarano RNSpO29205/22/2025 6:00 PM Estefania Bejarano RNHeart Rate DkqusyGnawxep27/18/2025 6:00 PM Estefania Bejarano RNMAP (mmHg)8205/22/2025 6:00 PM Estefania Bejarano RN * Height and WeightQuestionAnswerDate of IimgchjiyqWtubbkKrssfw5297/18/2025 11:39 AM Krista Moss RNWeight332805/22/2025 11:39 AM Krista Moss RNHeight SgzlhgJyvtel22/18/2025 11:39 AM Krista Moss RNBSA (Calculated - sq m)2.19107/23/2024 11:39 AM Krista Moss RNBMI (Calculated)28.212 11:39 AM Krista Moss RNWeight WcinsfCpoqru76/18/2025 11:39 AM Krista Moss RNWeight in (lb) to have BMI = 91478.9107/23/2024 11:39 AM Krista Moss RN documented as of this encounter Mental Status * Intra-Procedural MonitoringQuestionAnswerEntry DateAuthorCardiac RhythmNormal sinus daqrls6305/22/2025 4:15 PM Mercedes Moss LPN * Site/Extremity AssessmentQuestionAnswerEntry DateAuthorSdenise ColorPink 05/22/2025 1:39 PM Grace Lagunas RN * Skin Color/ConditionQuestionAnswerEntry Coby TempWarm;Dry05/22/2025 3:10 PM Perla Chen RN * Vitals and MonitoringQuestionAnswerEntry DateAuthorEtCO2 (mmHg)32107/23/2024 4:10 PM Mercedes Moss LPN * VitalsQuestionAnswerEntry DateAuthorBP LocationRight arm05/22/2025 11:39 AM Krista Moss RNPatient PositionSemi-lkfazhx4805/22/2025 11:39 AM Krista Moss RN * Vital SignsQuestionAnswerEntry FiaiIpchmjSM637/6705/22/2025 6:00 PM EST Estefania Somers, XXDrpua4677/18/2025 6:00 PM Estefania Bejarano WZKxpt40 05/22/2025 6:00 PM Estefania Bejarano, GIScD86244/18/2025 6:00 PM Estefania Bejarano RNO2 DeviceNone (Room air)05/22/2025 6:00 PM Estefania Bejarano RN Heart Rate FcnvmeGfscllk76/18/2025 6:00 PM Estefania Bejarano RNMAP (mmHg)82 05/22/2025 6:00 PM Estefania Bejarano RN * RLE Peripheral Vascular AssessmentQuestionAnswerEntry DateAuthorR Posterior Tibial PulseUnable to fdwbty4405/22/2025 6:47 PM Estefania Bejarano RNR Dorsalis Pedis/Pedal PulseUnable to xgjgbe4605/22/2025 6:47 PM Estefania Bejarano RN * Pre-Sedation ChecklistQuestionAnswerEntry DateAuthorConsents VerifiedYes 05/22/2025 1:42 PM Perla Chen RN * Pain AssessmentQuestionAnswerEntry DateAuthorPain AssessmentNo/denies pain 05/22/2025 6:00 PM Estefania Bejarano RN * Urine Output/AssessmentQuestionAnswerEntry RomsMyhurvAfpkt86614/18/2025 6:47 PM Estefania Bejarano RN * Modified AldreteQuestionAnswerEntry PjjlBodilkLhpaygrn892/18/2025 3:40 PM EST Krista Morris RNRespiration2107/23/2024 3:40 PM Krista Moss RNCirculation2107/23/2024 3:40 PM Krista Moss RN Rejdpgqnqlljh888/18/2025 3:40 PM Krista Moss RNOxygen Lorilnqpoo763/18/2025 3:40 PM Krista Moss RNModified Leigh Qehkk8367/18/2025 3:40 PM Krista Moss RN documented in [...] THE BLEEDING OR APPLY ADEQUATE PRESSURE, CALL 9- IMMEDIATELY. Persistent tenderness/pain or swelling, discoloration; numbness/tingling, [...] further assistance with quitting, you can contact [facility] at [phone] ( ), or consult your physician. *Discharge instructions were reviewed with patient and/or family and they verbalize understanding, including: follow-ups, medications, activity restrictions, and what to do for emergency. Opportunityhas been given for patient and/or family to voice any questions or concerns. * Attachments The following attachments cannot be sent through Care Everywhere. * Cilostazol (Faroese) documented in this encounter Medications at Time [...] (five) minutes as needed for chest pain. ONEUCH DELICA PLUS LANCET 33 gauge misc Inject [...] for previous angiogram with intervention and right ohgwt-ozz-cvbq amputation. Patient has rest pain and tissue loss, specifically wounds to his left 5th and 4thtoes. PVR at outside hospital shows multilevel occlusive disease. Plan to proceed with CO2 angiogram with intervention as amenable today. Consent obtained. This patient will be discussed with the attending surgeon tension machine operator, Dr. Montes. History of Present Illness Solomon Feldman is a 59 y.o. male who presents with with pertinent medical history of tobacco use, CKD, multilevel occlusive disease. Surgical history notable for previous angiogram with intervention and right lxrgl-gxh-rqhc amputation. Patient has rest pain and tissue [...] extremity (CMS-HCC) Diabetes mellitus type 2, controlled (CMS-HCC) GERD (gastroesophageal reflux disease) Hyperlipidemia Hypertension Past Surgical History Past Surgical History: Procedure Laterality Date AMPUTATION FOOT / TOE Right 09/29/2023 APPENDECTOMY BYPASS ARTERY FEMORAL POPLITEAL Right 11/08/2023 Performed by Padmini Montes MD at [facility] SPECIAL PROC CARDIAC CATHETERIZATION x4 heart stents COLONOSCOPY PROSTATE SURGERY SPINE SURGERY Vascular Invasive Right lower extremity angiogram with intervention/stent Right 11/07/2023 Performed by Padmini Montes MD at [facility] CARDIAC CATH LABS Allergies Allergies [...] data in the 24 hours ending 05/22/25 1307 Physical Exam Physical Exam Constitutional: General: He [...] Musculoskeletal: Comments: Right lower extremity status post nszlw-gzc-vyvq amputation Left lower extremity with small ulcerations [...] Person: Jackelin Birmingham Documenter: Perla Jaime RN Federal Judge Primary: Grace Valverde RN Patient Information Patient Name Solomon Feldman Legal Sex Male Procedures Lower Ext Angiogram-co2 Conclusion Recommendations: Aspirin Plavix and cilostazol. Pre Procedure Diagnosis critical limb ischemia Post Procedure Diagnosis Assist Devices Assist Devices Procedure Details Patient Name: Solomon Feldman Medical Record: [id number] Date of Operation: 05/23/2025 Preoperative Diagnosis: Left [...] chronic totally occluded SFA with atherectomy using moka5rex atherectomy devicewith balloon angioplasty and stenting using [...] no contrast. The patient has 2 runoffs qbqrj-cks-uxeh with the major runoff being the posterior [...] The patient was then taken to the laboratory associate and transferred to the table. Bilateral groins [...] 6FR DLV SYS RDPQ SLF XPD RPL [id number]+SPECIAL [id number] - [id number] No Stent STENT VSC INNOVA 7MM 100MM 75CM 6FR DLV SYS RDPQ SLF XPD RPL [id number]+SPECIAL [id number] Vascular Access Sheath inserted in the right [...] Fluoro Time (minutes) Physician Panel 1 12.500 99985.000 15.600 Padmini Montes MD PRESSURES AIR REST Systolic (mmHg) Diastolic (mmHg) Mean (mmHg) A Wave (mmHg) V Wave (mmHg) DAP (mmHg) Ao 0 0 0 Performing Department [facility] - Cardiac Cath [address] [place] [address] * Pre-Sedation Documentation - Marquis Galloway MD - 05/22/2025 1:10 PM EST Pre Procedure Evaluation: H&P was reviewed and the patient was examined. No change has occurredin the patient's condition since the H&P was completed. ASA: 3 Mallampati: II Sedation plan and risks discussed with: patient and spouse Indication(s) for [employer] Agent Visit: Other Cardiovascular Instability: No Heart Failure: No Stress Test Performed: No Cardiac CTA: No Cardiac Arrest Out of Hospital: No Cardiac Arrest at Transferring Facility: No documented in this encounter Plan of Treatment DateTypeDepartmentCare Team (Latest Contact Info)Wvezlkavzos05/13/2026 1:00 PM ESTAppointment [facility] [address] [place] [phone] Padmini Montes MD [address], [address] [address] 06/19/2025 11:20 AM ESTOffice Visit [facility] [address] [place] [address] Padmini Montes MD [address], [address] [address] documented as of this encounter Goals GoalPatient Goal TypeAssociated ProblemsRecent ProgressPatient-Stated?Author Patient is planning to transition back to SNF at discharge. Chandrika Weber LSW Note: Evaluation of progress towards goal: Patient is planning to transition back to SNF at discharge. 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) PAD (peripheral artery disease) PORTABLE FEDLQSPRgwvhec57/18/2025 11:33 AM EST POCT BUN, XYMRTIpbygkj21/18/2025 11:33 AM EST documented in this encounter Results * VASCULAR INVASIVE (05/22/2025 3:09 PM EST)Anatomical RegionLateralityModality X-Ray AngiographySpecimen (Source)Anatomical Location / LateralityCollection Method / VolumeCollection TimeReceived Time Narrative 05/23/2025 5:53 PM EST Recommendations: Aspirin Plavix and cilostazol. Procedure Details Patient Name: Solomon Feldman Medical Record: [id number] Date of Operation: 05/23/2025 Preoperative Diagnosis: Left [...] chronic totally occluded SFA with atherectomy using [employer] atherectomy devicewith balloon angioplasty and stenting using [...] no contrast. The patient has 2 runoffs lyzmq-orj-gzzg with the major runoff being the posterior [...] The patient was then taken to the laboratory associate and transferred to the table. Bilateral groins [...] tolerated the procedure well. Authorizing ProviderResult TypeResult StatusE[facility] CARDIAC CATH ORDERABLESFinal Result * (ABNORMAL) Portable Glucose Istat (05/22/2025 11:33 AM EST)ComponentValueRef RangeTest MethodAnalysis TimePerformed AtPathologist [facility] Miohfby691 (H)65 - 99 mg/dL05/22/2025 3:24 PM [facility] LABORATORYSpecimen (Source)Anatomical Location / LateralityCollection Method / VolumeCollection TimeReceived Time05/22/2025 11:33 AM EST05/22/2025 3:24 PM EST Narrative Authorizing ProviderResult TypeResult StatusFairview [facility] Center – FairviewOINT OF CARE TEST ORDERABLESFinal ResultPerforming OrganizationAddressCity/State/ZIP CodePhone Number [facility] [address] [place] [address], * (ABNORMAL) POCT BUN, Creat (05/22/2025 11:33 AM EST)ComponentValueRef Range Test MethodAnalysis TimePerformed AtPathologist [facility] BUN25(H)6 - 23 mg/dL05/22/2025 3:25 PM [facility] Creatinine2.0(H)0.7 - 1.2 mg/dL05/22/2025 3:25 PM [facility] LABORATORYPOC EGFR Non-Race Kuhymlule69(L)>=60 ml/min/1.73sq.m107/23/2024 3:25 PM [facility] LABORATORYComment: Reported eGFR is based on the CKD-EPI 2020 equation that does not use a race coefficient. Specimen (Source)Anatomical Location / LateralityCollection Method / Volume Collection TimeReceived Time05/22/2025 11:33 AM EST05/22/2025 3:24 PM EST Narrative Authorizing ProviderResult TypeResult StatusMohamed Jennifer Montes [facility] OF CARE TEST ORDERABLESFinal ResultPerforming OrganizationAddressCity/State/ZIP CodePhone Number [facility] [address] [place] [address], documented in this encounter Visit Diagnoses Diagnosis [...] encounter Administered Medications Medication OrderMAR ActionAction DateDoseRateSite fentaNYL (SUBLIMAZE) injection Code/trauma/sedation medication, Starting on Qi 05/22/25 at 1352, Intra- Procedure (CV) Given05/22/2025 2:39 PM EST50 nocBtxfd46/18/2025 2:34 PM EST50 mcgGiven 05/22/2025 2:12 PM EST50 mcg heparin (porcine) injection Code/trauma/sedation medication, Starting on Qi 05/22/25 at 1403, Intra- Procedure (CV) Given05/22/2025 2:03 PM EST9,000 Units lactated ringers infusion 75 mL/hr, intravenous, Continuous, Starting on Qi 05/22/25 at 1115, For 1 day, Pre-op lidocaine PF (XYLOCAINE) 10 mg/mL (1 %) injection Code/trauma/sedation medication, Starting on Qi 05/22/25 at 1350, Intra- Procedure (CV) Given05/22/2025 1:50 PM EST5 mLRight Groin midazolam (PF) (VERSED) injection Code/trauma/sedation medication, Starting on Qi 25 at 1351, Intra- Procedure (CV) Given05/22/2025 2:39 PM EST1 fqJgayo7905/22/2025 2:34 PM EST1 wnPyzjv3005/22/2025 2:12 PM EST1 mgdocumented in this encounter Active and Recently Administered Medications Times are shown in EST.Medication Order// lactated ringers infusion 75 mL/hr, intravenous, Continuous, Starting on Qi 25 at 1115, For 1 day, Pre-op * 1115 (Due) Medication Order// fentaNYL (SUBLIMAZE) injection (CANCELED) Code/trauma/sedation medication, Starting on Qi 25 at 1352, Intra- Procedure (CV) * 1352 [...] Code/trauma/sedation medication, Starting on Qi 25 at 1350, Intra- Procedure (CV) * 1350 (Given - Provider: Padmini Montes MD) midazolam (PF) (VERSED) injection (CANCELED) Code/trauma/sedation medication, Starting on Qi 121825 at 1351, Intra- Procedure (CV) * 1351 (Given - Provider: Grace Valverde RN) * 1412 (Given - Provider: Grace Valverde RN) * 1434 (Given - Provider: Grace Valverde RN) * 1439 (Given - Provider: Grace Valverde RN) documented in this encounter Additional Health Concerns AssessmentNoted TimePHQ-9 Depression Total Score: 8:40 PM EDT documented as of this encounter
[2025-05-24] VITALS (26 sets, daily range): BP systolic 109–153; BP diastolic 70–90; PULSE 74–115; TEMP 36.7–36.8; O2SAT 94–98; BMI 28.2; BMI 27.2
--- NOTE | 2025-05-24 17:48 | XR_ITS ---
The [address] [address] Patient Name: MYRA FELIPE MRN: [id number] date: 1965 Sex: M Assigned Patient Location: ER Current Patient Location: ED.MAIN Accession/Order Number: [id number] Exam Date: 05/24/2025 18:32 Report Date: 05/24/2025 18:45 At the request of: YURIDIA BYRD Procedure: XR foot LT min 3V LEFT KNEE - 3 views, left foot 3 views CLINICAL HISTORY: pain COMPARISON: Left foot 03/13/2025 FINDINGS: Left knee: No acute bony process. Minimal degenerative change. No significant joint effusion. Left foot: Soft tissue swelling. No acute bony process is seen. Plantar spurring. No bony erosions. XR/XR knee LT 3V IMPRESSION: SOFT TISSUE SWELLING INVOLVING THE LEFT FOOT WITHOUT ACUTE BONY PROCESS INVOLVING THE FOOT OR KNEE. Impression dictated by: Negro Marks Jr., D.O. 05/24/2025 6:45 PM Dictation Location: [place] [address] Electronically authenticated by: [id number] Y Date: 05/24/2025 18:45
--- NOTE | 2025-05-24 17:50 | XR_ITS ---
The [place] [id number] Patient Name: MYRA FELIPE MRN: [id number] date: 1965 Sex: M Assigned Patient Location: ER Current Patient Location: ED.MAIN Accession/Order Number: [id number] Exam Date: 05/24/2025 18:32 Report Date: 05/24/2025 18:45 At the request of: YURIDIA BYRD Procedure: XR foot LT min 3V LEFT KNEE - 3 views, left foot 3 views CLINICAL HISTORY: pain COMPARISON: Left foot 03/13/2025 FINDINGS: Left knee: No acute bony process. Minimal degenerative change. No significant joint effusion. Left foot: Soft tissue swelling. No acute bony process is seen. Plantar spurring. No bony erosions. XR/XR foot LT min 3V IMPRESSION: SOFT TISSUE SWELLING INVOLVING THE LEFT FOOT WITHOUT ACUTE BONY PROCESS INVOLVING THE FOOT OR KNEE. Impression dictated by: Negro Marks Jr., D.O. 05/24/2025 6:45 PM Dictation Location: [place] [address] Electronically authenticated by: [id number] Y Date: 05/24/2025 18:45
--- NOTE | 2025-05-24 17:53 | ED.LOWEXI1 ---
HPI HPI - Extremity Injury (Lower) General Chief Complaint: Extremity Injury, Lower Stated Complaint: Extremity Injury, Lower LEFT LEG Time Seen by Provider: 05/24/25 17:27 Source: patient and family Mode of arrival: Wheelchair History of Present Illness HPI Narrative: Solomon Feldman is a 59-year-old male presents to the ER with concerns of persistent left knee pain. Patient states on he had a vascular procedure and done with Dr. Montes at an outpatient surgery center ( [facility]) when during the case he felt a pop behind his left knee in the leg they were treating. Patient states he was told at the time that this was normal and he reports the pain being significant and constant since that time. . Patient states despite the procedure he has had persistent pain in the knee since this episode with some increased in swelling in lower leg. ( I did confirm in contrast to Triage note) That is knee was not moved, manipulated or jossled during the procedure and the pain came on at rest during the procedure. He has a pertinent history of type 2 diabetes , tobacco use and a right below the knee amputation that occurred last year following a bone infection. He has a visible ulcer with trace drainage to the left little toe on the left foot which she reports has been there for some time. Patient states the pain in his left leg is 10 out of 10 but localized to the knee mostly posterior. , but he is resting comfortably on the bed. He denies any other symptoms such as chest pain or shortness of breath. Patient's spouse notes that he was unable to have contrast for the vascular study due to his kidney function. The patient states the pain onset was during the procedure but his leg was laying still there was no manipulation to his knee or leg during the case. He reports the doctor told him he was able to open up to blockages with stents to improve circulation but could not open a third. He denies any chest pain or SOB. Related Data Home Medications ?Medication ?Instructions ?Recorded ?Confirmed empagliflozin 10 mg tablet 10 mg PO DAILY 03/03/23 05/24/25 (Jardiance) nitroglycerin 0.4 mg sublingual 0.4 mg sublingual Q5M PRN chest 03/03/23 05/24/25 tablet pain omeprazole 40 mg capsule,delayed 40 mg PO DAILY 03/03/23 05/24/25 release pregabalin 200 mg capsule 200 mg PO TID 03/03/23 05/24/25 atorvastatin 80 mg tablet 80 mg PO DAILY 12/09/23 05/24/25 clopidogrel 75 mg tablet 75 mg PO DAILY 12/09/23 05/24/25 dulaglutide 0.75 mg/0.5 mL 0.75 mg subcut QWEEK 12/09/23 05/24/25 subcutaneous pen injector (Trulicity) tamsulosin 0.4 mg capsule 0.4 mg PO BID 12/09/23 05/24/25 amitriptyline 25 mg tablet 25 mg PO .qhs 12/10/23 05/24/25 budesonide-formoterol HFA 160 2 inh inhalation BID 12/10/23 05/24/25 mcg-4.5 mcg/actuation aerosol inhaler (Symbicort) furosemide 40 mg tablet (Lasix) 40 mg PO DAILY 12/10/23 05/24/25 allopurinol 100 mg tablet 100 mg PO DAILY 12/15/24 05/24/25 blood-glucose sensor (FreeStyle 12/15/24 03/13/25 Jigar 2 Plus Sensor device) calcium 500 mg (as 1 tab PO DAILY 12/15/24 05/24/25 carbonate)-vitamin D3 10 mcg (400 unit) tablet (Calcium 500 With D) clonazepam 0.5 mg tablet 0.5 mg PO QAM 12/15/24 05/24/25 ferrous sulfate 325 mg (65 mg 325 mg PO BID 12/15/24 05/24/25 iron) tablet hydroxyzine HCl 25 mg tablet 25 mg PO .QHS 12/15/24 05/24/25 magnesium oxide 400 mg (241.3 mg 400 mg PO DAILY 12/15/24 05/24/25 magnesium) tablet metoprolol tartrate 25 mg tablet 50 mg PO BID 12/15/24 05/24/25 ropinirole 0.5 mg tablet 0.5 mg PO TID 12/15/24 05/24/25 aspirin 81 mg tablet 81 mg PO DAILY 02/15/25 05/24/25 glimepiride 2 mg tablet 1 mg PO BID 02/15/25 05/24/25 metformin 1,000 mg tablet 1,000 mg PO BID 02/15/25 05/24/25 Previous Rx's ?Medication ?Instructions ?Recorded sitagliptin phosphate 100 mg 50 mg (1/2 x 100 mg) PO DAILY #0 02/16/25 tablet (Januvia) tabs Allergies Allergy/AdvReac Type Severity Reaction Status Date / Time Penicillins Allergy Severe Swelling Verified 05/24/25 17:33 of Lip/Tongue/Throat bee venom protein (honey bee) Allergy Swelling Verified 05/24/25 17:33 of Lip/Tongue/Throat latex Allergy Rash Verified 05/24/25 17:33 Opioid HPI Opioid Management Most Recent Pain and Opioid Data: Last Pain Scale 10 Today, 18:41 Last Pain Intensity 9 03/04/23, 10:36 Last MAR Pain Assessment Today, 18:41 Last ORT Total Score 0 02/15/25, 02:01 Last ORT Risk Category Low Risk 02/15/25, 02:01 Ur Phencyclidine Scrn, (NEGATIVE) Negative 03/03/23, 17:24 Review of Systems ROS Constitutional Denies: fever or chills Eyes Denies: change in vision or blurry vision Ears, nose, mouth, and throat Denies: throat pain, neck pain or throat swelling Cardiovascular Reports: edema (left lower leg); Denies: chest pain or palpitations Respiratory Denies: shortness of breath or cough Gastrointestinal Denies: abdominal pain, nausea, vomiting or diarrhea Musculoskeletal Reports: joint pain (left knee); Denies: back pain or neck pain Neurological Denies: headache, numbness in extremities or weakness in extremities Psychiatric Denies: anxiety Endocrine Denies: excessive urination [facility] Medical History (Updated 05/24/25 @ 20:20 by CARSON Silveira) D-dimer, elevated ?R79.89 - Other specified abnormal findings of blood chemistry (ICD-10) Chest pain ?R07.9 - Chest pain, unspecified (ICD-10) Acute osteomyelitis of right foot ?M86.171 - Other acute osteomyelitis, right ankle and foot (ICD-10) Chronic ulcer of right foot ?L97.519 - Non-pressure chronic ulcer of other part of right foot with unspecified severity (ICD-10) Coronary artery disease ?I25.10 - Atherosclerotic heart disease of [place] coronary artery without angina pectoris (ICD-10) COPD (chronic obstructive pulmonary disease) ?J44.9 - Chronic obstructive pulmonary disease, unspecified (ICD-10) Hypertension ?I10 - Essential (primary) hypertension (ICD-10) Post-op bleeding Acute pain of right hip ?M25.551 - Pain in right hip (ICD-10) Foot osteomyelitis ?M86.9 - Osteomyelitis, unspecified (ICD-10) Ulcer of right foot with necrosis of bone ?L97.514 - Non-pressure chronic ulcer of other part of right foot with necrosis of bone (ICD-10) Hypocalcemia ?E83.51 - Hypocalcemia (ICD-10) Hypomagnesemia ?E83.42 - Hypomagnesemia (ICD-10) Sepsis ?A41.9 - Sepsis, unspecified organism (ICD-10) Wound of foot ?S91.309A - Unspecified open wound, unspecified foot, initial encounter (ICD-10) Abscess of right foot ?L02.611 - Cutaneous abscess of right foot (ICD-10) Anticoagulated ?Z79.01 - casserole preparer (current) use of anticoagulants (ICD-10) Diabetic infection of right foot ?E11.628 - Type 2 diabetes mellitus with other skin complications (ICD-10) ?L08.9 - Local infection of the skin and subcutaneous tissue, unspecified (ICD-10) Puncture wound of right foot ?S91.331A - Puncture wound without foreign body, right foot, initial encounter (ICD-10) Cellulitis of foot, right ?L03.115 - Cellulitis of right lower limb (ICD-10) Sepsis ?A41.9 - Sepsis, unspecified organism (ICD-10) CHF (congestive heart failure) ?I50.9 - Heart failure, unspecified (ICD-10) Migraine headache ?G43.909 - Migraine, unspecified, not intractable, without status migrainosus (ICD-10) Carpal tunnel syndrome ?G56.00 - Carpal tunnel syndrome, unspecified upper limb (ICD-10) Back pain ?M54.9 - Dorsalgia, unspecified (ICD-10) Arthritis ?M19.90 - Unspecified osteoarthritis, unspecified site (ICD-10) Restless leg ?G25.81 - Restless legs syndrome (ICD-10) GERD (gastroesophageal reflux disease) ?K21.9 - Gastro-esophageal reflux disease without esophagitis (ICD-10) High cholesterol ?E78.00 - Pure hypercholesterolemia, unspecified (ICD-10) Myocardial infarction ?I21.9 - Acute myocardial infarction, unspecified (ICD-10) Dementia ?F03.90 - Unspecified dementia, unspecified severity, without behavioral disturbance, psychotic disturbance, mood disturbance, and anxiety (ICD-10) CKD stage 4 due to type 2 diabetes mellitus ?E11.22 - Type 2 diabetes mellitus with diabetic chronic kidney disease (ICD-10) ?N18.4 - Chronic kidney disease, stage 4 (severe) (ICD-10) Hyperlipidemia ?E78.5 - Hyperlipidemia, unspecified (ICD-10) Polyp of prostate with urinary obstruction ?N40.1 - Benign prostatic hyperplasia with lower urinary tract symptoms (ICD-10) ?N13.8 - Other obstructive and reflux uropathy (ICD-10) Femoral artery stenosis ?I70.209 - Unspecified atherosclerosis of [place] arteries of extremities, unspecified extremity (ICD-10) Glaucoma ?H40.9 - Unspecified glaucoma (ICD-10) Carpal tunnel syndrome, bilateral ?G56.03 - Carpal tunnel syndrome, bilateral upper limbs (ICD-10) Gout ?M10.9 - Gout, unspecified (ICD-10) Chronic kidney disease ?N18.9 - Chronic kidney disease, unspecified (ICD-10) Weakness ?R53.1 - Weakness (ICD-10) Surgical History (Updated 05/24/25 @ 20:20 by CARSON Silveira) H/O foot surgery (08/10/23) ?Z98.890 - Other specified postprocedural states (ICD-10) S/P TURP (04/13/23) ?Z90.79 - Acquired absence of other genital organ(s) (ICD-10) H/O foot surgery (08/05/23) ?Z98.890 - Other specified postprocedural states (ICD-10) History of heart artery stent ?Z95.5 - Presence of coronary angioplasty implant and graft (ICD-10) History of spinal surgery ?Z98.890 - Other specified postprocedural states (ICD-10) History of colonoscopy ?Z98.890 - Other specified postprocedural states (ICD-10) History of carpal tunnel release ?Z98.890 - Other specified postprocedural states (ICD-10) History of cataract extraction ?Z98.49 - Cataract extraction status, unspecified eye (ICD-10) History of appendectomy ?Z90.49 - Acquired absence of other specified parts of digestive tract (ICD-10) History of heart artery stent ?Z95.5 - Presence of coronary angioplasty implant and graft (ICD-10) Family History Mother Family history of CHF (congestive heart failure) Family history of diabetes mellitus Family history of hypertension Grandfather Family history of CHF (congestive heart failure) Family history of diabetes mellitus Family history of hypertension Family history of myocardial infarction Grandmother Family history of hypertension Social History (Updated 02/15/25 @ 06:06 by Kimberley Engle RN) Within the past year, how often did you have a drink containing alcohol: 4 or more times a week Within the past year, how many standard drinks containing alcohol did you have on a typical day: 1 or 2 Within the past year, how often did you have six or more drinks on one occasion: never Total score: 0 Score interpretation: Questions 2 and 3 are 0. It can be assumed that the patient's drinking is below the recommended limits. However, please confirm the accuracy of the patient's alcohol intake over the last few months. Smoking status: Current every day smoker What tobacco products do you use: cigarettes Cigarettes per day: 20 Years smoked: 42 Smoking pack-years: 42.00 Nicotine containing products detail: Approx 1 pack QOD Second hand tobacco smoke exposure: No Non-prescribed substance use: denies use and cannabis (any form) Previous occupational history: DISABLED Known occupational exposures/hazards: No Highest level of school completed/degree received: high school graduate Are you now , , , , never or living with a partner: In a typical week, how many times do you talk on the telephone with family, friends, or neighbors: once per week How often do you get together with friends or relatives: once per week How often do you attend tenriism or caodaism services: never Do you belong to any clubs or organizations such as tenriism groups unions, fraternal or athletic groups, or school groups: no Total score: 1 Score interpretation: A score of less than or equal to 1 indicates the most socially isolated. Little interest or pleasure in doing things: not at all Feeling down, depressed, or hopeless: not at all Feel stressed/tense/nervous/anxious/difficulty sleeping: not at all Due to disability, difficulty making decisions: No Do you think of yourself as: straight/heterosexual Gender Identity: male Exam Narrative Exam Narrative: Vital signs reviewed and nurse's notes. The patient is not hypoxic. General: Alert, no acute distress, patient resting comfortably, patient has a right below the knee amputation. Skin: warm, intact, no pallor noted, surgical site right groin well healing with no pain and minimal bruising. Head: Normocephalic, atraumatic Eye: Normal conjunctiva, no exudates Respiratory: No acute distress, lungs CTA Musculoskeletal: No evidence of deformity to the left knee. There is no significant swelling. There is no ecchymosis. No erythema or warmth noted. DP and PT pulses are not palpable at bedside but cap refill in sless than 3 seconds and extremity is warm to touch with some erythema to anterior gilman and taunt skin with non pitting edema in the lower leg and foot. gross sensation intact, has peripheral neuropathy, Dark ulcer present to left little low lateral aspect with scan drainage approx 0.5 cm in diameter with no streaking. There is no cyanosis or mottling noted. The patient has tenderness to right knee, but not to the level of patient reported pain. Popliteal fossa without prominent pulsation. . The patient has no laxity with varus or valgus stressing. The patient was able to flex and extend although with pain is present regardless of motion. Patient was able to extend leg off the cart without difficulty. No tenderness noted to the 5th MT, midfoot, ankle or proximal fibular area. There is no pain with calcaneal squeeze, achilles tendon is intact and no defect is palpated. The patient has no hip pain on rom. Neurological: alert and orient x4, normal sensory and motor observed within limits of peripheral neuropathy. Psychiatric: Cooperative Constitutional Vital Signs, click to edit/add: Last Vital Signs Temp 98.1 F 05/24/25 17:36 Pulse 74 05/24/25 17:36 Resp 18 05/24/25 17:36 BP 149/90 H 05/24/25 17:36 Pulse Ox 98 05/24/25 17:36 O2 Del Method Room Air 05/24/25 17:36 Course Vital Signs Vital signs: Vital Signs Temperature 98.1 F 05/24/25 17:36 Pulse Rate 74 05/24/25 17:36 Respiratory Rate 18 05/24/25 17:36 Blood Pressure 149/90 H 05/24/25 17:36 Pulse Oximetry 98 05/24/25 17:36 Oxygen Delivery Method Room Air 05/24/25 17:36 Temperature 98.1 F 05/24/25 17:36 Pulse Rate 74 05/24/25 17:36 Respiratory Rate 18 05/24/25 17:36 Blood Pressure 149/90 H 05/24/25 17:36 Pulse Oximetry 98 05/24/25 17:36 Oxygen Delivery Method Room Air 05/24/25 17:36 MDM - Extremity Injury (Lower) MDM Narrative Medical decision making narrative: Patient is a right below the knee amputee from bone infection 1 year ago he has evidence of an ulcer on his left little toe without streaking or lymphangitis there is concerning for new onset swelling and some erythema to the anterior gilman since his vascular procedure on . Patient states he has been resting with elevation as he has been unable to walk due to pain in the left knee. He reports a 10 out of 10 pain localized to the posterior knee but states it can radiate through to his kneecap. Patient states there was no trauma but a pop sensation was felt during his vascular stenting procedure. Doppler pulses were obtained dorsalis pedis. Left gilman extremity is slightly warm to the touch with erythema and no pallor is appreciated. Wound culture obtained from the left little toe. X-rays performed of the foot and knee joint. In light of the information that his kidneys have been unable to tolerate contrast we did probably call an ultrasound to perform a vascular arterial study. Patient reevaluated, noted pain improved after IV morphine. He appears much more comfortable, tech present at bedside performing vascular arterial study. Patient made aware of his laboratory studies elevated glucose, does not appear to be into DKA. We discussed his elevated lactic as well which may be related to early infection versus more likely his vascular procedure. Patient will be given a 1 L IV fluid bolus with caution on additional fluid boluses due to his impaired kidney function and cardiac history. He is without any chest pain or shortness of breath. Despite the wound on his left little toe it appears he has had a chronic wounds in this area with prior admission and admits that he has no pain at this site currently and his pain is only to the knee since his procedure. Reviewed preliminary ultrasound report of vascular arterial showing stent placed monophasic flow is seen throughout the leg, moderate plaque throughout with little flow seen in the anterior tibial artery there is 67% stenosis in the left iliac artery. Formal report is pending. Patient's case discussed with Dr. Montes at 7:49 PM. Made aware of patient's concern regarding knee pain since the procedure, laboratory studies performed here along with imaging studies. He reports that this seems normal for his case and has no other concerns. States he was directed to do Betadine to his left toe wound likely vascular ulcer. He advised the patient should be on aspirin Plavix and cilostazol. The patient states he just got started on cistazol yesterday as the pharmacy did not have it in stock. He reports taking his diabetic medications as prescribed. We discussed his elevated blood sugars and the patient was given 1 L IV fluid bolus and 20 units of subcutaneous insulin here. We discussed his cardiac history although he does not have any current chest complaints or shortness of breath with concerns regarding IV fluid administration and concerns for fluid retention and his hyponatremia the patient is agreeable to an admission for observation to ensure there is a good improvement in his blood glucose along with reevaluation of his leg before discharge home and outpatient follow-up with vascular clinic. I do not feel the patient warrants the need for emergent transfer at this time regarding his surgery after consulting his surgeon but does require some medical tune up for optimization. Patient's case was discussed with Dr. Ervin who is agreeable with admission for observation. Will hold on antibiotics at this time pending his evaluation. The patient is without fever, presenting with complaints of left knee pain the knee bends with both active and passive motion and knee joint infection is not suspected. The ulcer in the lower leg involving the left little toe appears chronic and may be vascular versus diabetic in nature or combination along with new onset swelling in the leg with some warmth that is likely from his surgical procedure. Patient without pain in his left foot. His left knee pain since his procedure does make it difficult for him to ambulate as he only has 1 leg and would be a significant fall risk. Differential Diagnosis Differential diagnosis: Likely other (Vascular complication from surgery versus cellulitis versus postoperative pain) Discharge Plan Discharge Chief Complaint: Extremity Injury, Lower Clinical Impression: Acute hyperglycemia, Acute hyponatremia, Toe ulcer, Knee pain, left, History of vascular surgery Patient Disposition: Admitted to [facility], OBS Time of Disposition Decision: 20:20 Prescriptions / Home Meds: No Action allopurinol 100 mg tablet 100 mg PO DAILY clonazepam 0.5 mg tablet 0.5 mg PO QAM magnesium oxide 400 mg (241.3 mg magnesium) tablet 400 mg PO DAILY hydroxyzine HCl 25 mg tablet 25 mg PO .QHS calcium carbonate-vitamin D3 [Calcium 500 With D] 500 mg-10 mcg (400 unit) tablet 1 tab PO DAILY ferrous sulfate 325 mg (65 mg iron) tablet 325 mg PO BID metoprolol tartrate 25 mg tablet 50 mg PO BID Rx Instructions: HOLD IF SPB <125 OR HR <70 ropinirole 0.5 mg tablet 0.5 mg PO TID (DME) FreeStApert[employer] Jigar 2 Plus Sensor Device See Rx Instructions .ROUTE Rx Instructions: As directed metformin 1,000 mg tablet 1,000 mg PO BID aspirin 81 mg tablet 81 mg PO DAILY glimepiride 2 mg tablet 1 mg PO BID Rx Instructions: Do not take if your blood sugar drops below 130 Januvia 100 mg tablet 50 mg PO DAILY Qty: 0 0RF Jardiance 10 mg tablet 10 mg PO DAILY nitroglycerin 0.4 mg tablet, sublingual 0.4 mg sublingual Q5M PRN (Reason: chest pain) omeprazole 40 mg capsule,delayed release(DR/EC) 40 mg PO DAILY pregabalin 200 mg capsule 200 mg PO TID tamsulosin 0.4 mg capsule 0.4 mg PO BID atorvastatin 80 mg tablet 80 mg PO DAILY clopidogrel 75 mg tablet 75 mg PO DAILY Trulicity 0.75 mg/0.5 mL pen injector 0.75 mg subcut QWEEK Patient Comments: tuesdays amitriptyline 25 mg tablet 25 mg PO .qhs furosemide [Lasix] 40 mg tablet 40 mg PO DAILY budesonide-formoterol [Symbicort] 160-4.5 mcg/actuation HFA aerosol inhaler 2 inh inhalation BID Print Language: Spanish Referrals: Jenaro Valadez DO [Primary Care Provider] - 1 week
--- NOTE | 2025-05-24 18:31 | PC.NURSE ---
pain to left knee after recent surgery. pillow placed under left knee. swelling to left knee, and LLE, ankle and foot. Skin red and warn to touch to LLE, Doppler strong pulse to left foot.
[2025-05-24 18:34] LABS: Hematocrit 48.3 % (42.0-54.0); Hemoglobin 16.8 g/dL (14.0-18.0); Immature Granulocytes Abs Auto 0.06 10^3/uL (0.00-0.03); Immature Granulocytes Pct Auto 0.6 % (0.0-0.5); Lymphocytes Absolute Auto 1.2 10^3/uL (1.2-3.8); Mean Corpuscular HGB Conc 34.8 g/dL (29.9-35.2); Mean Corpuscular Hemoglobin 30.6 pg (25.9-34.0); Mean Corpuscular Volume 88.0 fL (80.0-94.0); Platelet Count 121 10^3/uL (150-450); Red Blood Count 5.49 10^6/uL (4.70-6.10); White Blood Count 10.3 10^3/uL (4.0-11.0)
[2025-05-24] MEDS: MORPHINE SULFATE 2 MG/ML SYRINGE 4 MG IV (18:41)
--- OUTSIDE RECORDS SUMMARY | 2025-05-24 18:45 | XMS_ITS | Encounter Summary ---
Author Organization [facility] [employer] s tem Address [id number] [address] 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) PAD (peripheral artery disease) Procedures Vas art doppler lwr bilat mult lev/PVR Padmini Montes MD [address], [address] [address] Phone: tel:[phone] fax: Referral IDStatusReasonStart DateExpiration DateVisits RequestedVisits [id number] Encounter Details DateTypeDepartmentCare Team (Latest Contact Info)Aytrotwlifo27/15/2025Orders Only [facility] [address] [place] [phone] Mary Shah 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) (Primary Dx); PAD (peripheral artery disease) Social History Tobacco UseTypesPacks/DayYears UsedDateSmoking Tobacco: Every DkiFqktnrzmuk984.6 Started: 10/05/1981Smokeless Tobacco: NeverAlcohol UseStandard Drinks/Week CommentsNot Currently0 (1 standard drink = 0.6 oz pure alcohol)[facility] Utilities AnswerDate RecordedIn the past 12 [...] as a part of a household?No11/07/2023hildcareAnswerDate Recorded SyzknlpayPdgwvlj88/10/2019EmploymentAnswerDate RecordedEmploymentUnknown 11/12/2018Hunger ScreeningAnswerDate RecordedWithin the past 12 months we worried whether our food would run out before we got money to buy more.Never True02/29/2024Within the past 12 months the food we bought just didn't last and we didn't have money to get more.Never True02/29/2024Sex and Gender Information ValueDate RecordedSex Assigned at BirthNot on fileLegal PisNcgw7101/06/2015 1:04 PM EDTGender IdentityNot on fileSexual OrientationNot on filedocumented as of this encounter Plan of Treatment DateTypeDepartmentCare Team (Latest Contact Info)Cvemfvducnv40/13/2026 1:00 PM ESTApp[facility]ment [facility] [address] [place] [address] Padmini Montes MD [address], [address] [address] 06/19/2025 11:20 AM ESTOffice Visit [facility] [place] [address] [place] [address] Padmini Montes MD [address], [address] [place] [address] NameTypePriorityAssociated DiagnosesOrder ScheduleVas art doppler lwr bilat mult lev/PVRVascular UltrasoundRoutine 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 Chandrika Weber LSW Note: Evaluation of progress towards goal: Patient is planning to transition back to SNF at discharge. 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
--- OUTSIDE RECORDS SUMMARY | 2025-05-24 18:45 | XMS_ITS | Encounter Summary ---
Author Organization [employer] [facility] tem Address [id number] [address] [place] [address] Care Team Providers Care Glass Blowing Instructor Name Role Phone Unavailable Primary Care Provider Unavailabl e Encounter Details DateTypeDepartmentCare Team (Latest Contact Info)Ebogqstzoft62/18/2025Travel Social History Tobacco UseTypesPacks/DayYears UsedDateSmoking Tobacco: Every PleTigczucogj910.6 Started: 10/05/1981Smokeless Tobacco: NeverAlcohol UseStandard Drinks/Week CommentsYes0 [...] as a part of a household?No4ChildcareAnswerDate Recorded VclzwspheEulrdbg07/10/2019EmploymentAnswerDate RecordedEmploymentUnknown 11/12/2018Hunger ScreeningAnswerDate RecordedWithin the past 12 months we worried whether our food would run out before we got money to buy more.Never True02/29/2024Within the past 12 months the food we bought just didn't last and we didn't have money to get more.Never True02/29/2024Sex and Gender Information ValueDate RecordedSex Assigned at BirthNot on fileLegal MpsTnia6101/06/2015 1:04 PM EDTGender IdentityNot on fileSexual OrientationNot on filedocumented as of this encounter Plan of Treatment DateTypeDepartmentCare Team (Latest Contact Info)Ylxkydlwyux04/13/2026 1:00 PM ESTAppointment [facility] [address] [place] [address] Padmini Montes MD [address], [address] [address] 06/19/2025 11:20 AM ESTOffice Visit [facility] [address] [place] [address] Padmini Montes MD [address], [address] [address] documented as of this encounter Goals GoalPatient [...]
--- OUTSIDE RECORDS SUMMARY | 2025-05-24 18:45 | XMS_ITS | Patient Health Record ---
Author Organization [facility] [place] Address [address] [place] [address] Care Team Providers Care Liquid Chlorine Operator Name Role Phone Jenaro Valadez DO Primary Care Provider Franklin Esparza Unavailable [phone] Allergies Allergen (clinical drug ingredient) Drug/Non Drug [...] 02/22/2016 Administ ered SARS-COV-2 (COVID 19 Pfizer 30mcg/0.3mL)Aprdlqh96/11/2021Administered Social History Tobacco Use: Social History Observation Description Date Details (start date - stop date) Former Smoker NA - NA Tobacco Control (Standard) Question Answer Notes Tobacco use: Former smoker How long has it been since you last smoked?1-5 yearsAdditional Findings: Tobacco lfy-ozkiHr-kwziyhwj cigarette smoker (10-19/day) Problems Problem Type SNOMED Code ICD Code Onset Dates Problem Status W/U Status Risk Notes Problem Foot ulcer due to ty pe 2 diabetes mellitus (7688415579742) Type 2 diabetes mellitus with foot ulcer (E11.621) ActiveconfirmedProblemHypomagnesemia (181082676)Hypomagnesemia (E83.42)Active confirmedProblemCentrilobular emphysema (41668100)Centrilobular emphysema (J43.2)ActiveconfirmedProblemChronic ulcer of foot (521098272)Non-pressure chronic ulcer of left heel and midfoot with fat layer exposed (L97.422)Active confirmedProblemLong-term current use of inhaled steroid (379167249)FDC (current) use of inhaled steroids (Z79.51)ActiveconfirmedProblemCoronary artery disease (97671853)CAD (coronary artery disease) (I25.10)ActiveconfirmedProblem Obstructive sleep apnea syndrome (74256705)JADEN (obstructive sleep apnea) (G47.33)ActiveconfirmedProblemDementia (11805627)Dementia (F03.90)Active confirmedProblemAcute exacerbation of chronic obstructive airways disease (554993703)COPD exacerbation (J44.1)ActiveconfirmedProblemDiabetes mellitus type 2 (disorder) (44483608)DM2 (diabetes mellitus, type 2) (E11.9)Activeconfirmed ProblemNon-pressure chronic ulcer of right heel and midfoot with necrosis of bone (L97.414)ActiveconfirmedProblemIron deficiency anemia (25248382)Anemia, iron deficiency (D50.9)ActiveconfirmedProblemMultiple pulmonary nodules (608518289)Multiple pulmonary nodules (R91.8)ActiveconfirmedProblemEx-tobacco user (finding) (329232903)History of tobacco abuse (Z87.891)Activeconfirmed ProblemChronic obstructive pulmonary disease (40505105)Advanced COPD (J44.9) ActiveconfirmedProblemChronic ulcer of right heel (05274131571248304)Chronic ulcer of right heel (L97.419)ActiveconfirmedProblemAmputation stump pain (T87.89)ActiveconfirmedProblemLeukocytosis (506736340)Elevated WBCs (D72.829) ActiveconfirmedProblemHistory of lung lobectomy (situation) (86943825077309268) 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)ActiveconfirmedProblemEssential hypertension (39021082)BP (high blood pressure) (I10)ActiveconfirmedProblemAcute osteomyelitis of ankle and/or foot (001466878)Acute osteomyelitis of right ankle (M86.171)ActiveconfirmedProblemAcute osteomyelitis of ankle and/or foot (969455726)Acute osteomyelitis of metatarsal bone of right foot (M86.171)Active confirmedProblemNon-pressure chronic ulcer of right heel and midfoot with muscle involvement without evidence of necrosis (L97.415)ActiveconfirmedProblemNon- pressure chronic ulcer of other part of right foot with muscle involvement without evidence of necrosis (L97.515)ActiveconfirmedProblemNon-pressure chronic ulcer of other part of left foot with other specified severity (L97.528)Active confirmedProblemDiabetic renal disease (715594116)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)ActiveconfirmedProblemType II diabetes mellitus without complication (479354400)Diabetes (E11.9)ActiveconfirmedProblemDiabetes mellitus (74840823)Diabetes mellitus (E11.9)ActiveconfirmedProblemChronic kidney disease stage 4 (451372341)Acute worsening of stage 4 chronic kidney disease (N18.4)ActiveconfirmedProblemChronic ulcer of right foot (disorder) (66686017936628721)Chronic ulcer of right foot with fat layer exposed (L97.512) ActiveconfirmedProblemPolyneuropathy due to type 2 diabetes mellitus (763793513) 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)Activeconfirmed Encounters Encounter Location Date Provider Diagnosis [facility] [address] [place] [address] 06/24/2024 Franklin Bonilla Plan Of Treatment Pending Test Test Name Order Date AFB Specimen Processing 10/02/2023 Acid Fast Smear 10/02/2023 Acid Fast Culture 10/02/2023 Fungus Stain 10/02/2023 Future Test Test Name Order Date CT Chest Low Dose for Screening* 06/01/2 024 Insurance Providers Payer Name Payer Address Payer Phone Subscriber Number Group Number Insured Name Patient Relationship to Insured Coverage Start Date Coverage End Date [employer] [place] [employer] [address] [place] [address] [id number] Panfilo Feldman - patient is the [id number] 2023[place] [facility] [address] [facility] [place] [facility] [id number], ScottSelf - patient is the Medical (General) History Medical History History ICD Code Centrilobular emphysema J43.2 JADEN (obstructive sleep apnea) G47.33 HTN (hypertension) I10 Hyperlipidemia E78.5 RLS (restless legs syndrome) G25.81 PAD (peripheral artery disease) I73.9 CAD (coronary artery disease) I25.10 DM2 (diabetes mellitus, type 2) E11.9 Multiple pulmonary nodules R91.8 BPH (benign prostatic hyperplasia) N40.0 FDC (current) use of inhaled stero ids Z79.51 History of tobacco abuse Z87.891 Surgical History Surgery Date(Month/Year) cataract removal appendectomycarpal tunnel releaseCardiac Stent Placement-2015 & 2016vascular stent placement-left leg
--- OUTSIDE RECORDS SUMMARY | 2025-05-24 18:46 | XMS_ITS | Clinical Summary ---
Author Organization [facility] Address [address] [place] [address] Care Team Providers Care Weather Reporter Name Role Phone Franklin Link Nickolas BRICENO Unavailable [phone] Jenaro Valadez DO Primary Care Provider [phone] Carlos A Bolanos Unavailable [phone] Allergies Active AllergyReactionsCriticalityNoted DateCommentsIsosorbide MononitrateOther: See Oreykzdw15/02/2015 Headache IjvsbemakckAlojzfxdiix53/02/2014 Medications MedicationSigDispense QuantityRefillsLast FilledStart DateEnd DateStatus metFORMIN [...] ~1.6) who presents as a transfer from [facility] for ongoing evaluation and treatment of [...] today # Disposition: To be [facility], skilled for acute rehab. Neuro # Altered [...] 5 days) - Continue Vanc and Agustin (MANAGER SOCIAL WORK dosing) as well as Acyclovir (for possible [...] Restarted home metoprolol with holding parameters - NQBWO2TLBR - 3, not on AC at this [...] DateObesity, Class I, BMI 30-34.9 E66.904 Mixed hayhzqtpgifrew09/12/2016 Overview (07/28/2015): Cont home atorva Pzqbeyw7708/04/2014Sleep apnea08/04/2014CAD S/P percutaneous coronary angioplasty 11/05/2013 Overview (03/07/2016): CAD (s/p [place] to mPDA and PLV of RCA in 11/2013 and recent PCI on 07/2015 Plan - asa and plavix - atorva 40 mg (due to drug interaction with ranalazine) - metoprolol 50 mg bid - ranolazine Yokolxmwktyi66/03/2014 Overview (02/13/2016): Continue home amlodipine 10mg QD [...] (05/05/2016): plavix Resolved Problems ProblemNoted DateDiagnosed DateResolved IjsfOexjaoakwemgft71/03/201610/03/2016 Overview (03/07/2016): At presentation patient had AMS and needed intubation to protect airway as patient had copious secretions. Possible causes: Uremic encephalopathy vs Sepsis vs Cardiogenic shock vs MANAGER SOCIAL WORK infection vs MANAGER SOCIAL WORK disorder Patient came in with S urea>100 [...] to SNF. Atrial fibrillation with rapid ventricular lmaivqnt82 Overview (03/07/2016): Patient developed A fib with RVR during early hospitalization. Was HD unstable at time. Uremic. Did not respond to BB or calcium channel lamont. Loaded with amiodarone with resolution. A: Resolved. Not in A fib. Currently on metoprolol for HTN. P: Follow up intermittently with EKG at PCP office Zhvkxp07Somnolence Overview (03/07/2016): At presentation patient had AMS and needed intubation to protect airway as patient had copious secretions. Possible causes: Uremic encephalopathy vs Sepsis vs Cardiogenic shock vs MANAGER SOCIAL WORK infection vs MANAGER SOCIAL WORK disorder Patient came in with S urea>100 [...] Conservative management with PT. Discharge to SNF. Ywmljuoywfr23Pain of right upper nclkiwdkq22 Overview (02/16/2016): Persistent, reproducible right arm pain. [...] - Avoid nephrotoxins, trend Cr Right leg spqwbncj54Unstable gzrilq13 Overview (07/28/2015): Patient is now s/p [place] [...] History Tobacco UseTypesPacks/DayYears UsedDateSmoking Tobacco: Every DayCigarettes0.5 47.5Started: 11/18/1977Smokeless Tobacco: FormerQuit: 11/04/2013lcohol Use Standard Drinks/WeekCommentsNo0 (1 standard drink = 0.6 oz pure alcohol)Area Deprivation IndexAnswerDate RecordedNational Score (1-100), lower number is lower riskNot on file05/10/2020State Score (1-10), lower number is lower riskNot on file05/10/2020Data from: https://www.neighborhoodatlas.medicine.[facility] [place]/. Last address used for calculationNot on file05/10/2020Sex and Gender Information ValueDate RecordedSex Assigned at BirthNot on fileLegal FctEmye62/02/2012 9:56 AM ESTGender IdentityNot on fileSexual OrientationNot on fileOccupationIndustry Job Start DateJob End DateRetiredNot on fileNot on fileNot on file Last Filed Vital Signs Vital SignReadingTime TakenCommentsBlood Gwfhggbc038/7004 9:28 AM EDT Phewk9909 9:28 AM TSEGghtyhvqgxf90.8 ??C (98.3 ??F)03/07/2016 2:00 PM EDTRespiratory Aabh0480 9:28 AM EDTOxygen Mwsgqimibx48%09/11/2017 9:28 AM EDTInhaled Oxygen Concentration--Woptvy673.2 kg (254 lb)09/11/2017 9:28 AM JDDHpgvde240.9 cm (6')09/11/2017 9:28 AM EDTBody Mass Index34.45009/11/2017 9:28 AM EDT Plan of Treatment Health MaintenanceDue DateLast DoneCommentsAnxiety Nqjfycxkw81/27/1984Depression Zilpfpccw82/27/1984Hepatitis C Ojnftfcgn54/27/1984DTaP,Tdap,Td Vaccine (1 - Tdap)1984CT Tppnivjbisgj89/27/2011Cologuard (FIT-DNA)2010Colonoscopy 2010Colorectal Cancer Kiyxjfuzs58/27/2011Fecal Occult Blood2010 Prostate Cancer Screening Ppixrodtge44/27/3540Vvfkkujqtjvoz68/27/2011Shingrix Vaccine (1 of 2)2015Pneumococcal Vaccine: 50+ (2 of 2 - PCV)02/21/2017 02/22/2016Diabetes Kjkfbzzhs82, 03/06/2016, 03/05/2016, Additional history existsLipid Cjfpbitkk21Covid-19 Vaccine (2024- season)2025Influenza Vaccine (#1)51RSV Vaccine (1 - 1-dose 75+ series)2040HIV EhhygfgksLwtcicqol97/24/2016 Procedures Procedure NamePriorityDate/TimeAssociated DiagnosisCommentsCOMPREHENSIVE METABOLIC EGEGSUVPA86/03/2016 7:19 AM EDT HIV 1/2 COMBO WITH REFLEX TO GUGTVCVBGBAUZUASRCU06/24/2016 9:41 AM EDT LIPID PANEL, YYNDKYBSefqzhm85/11/2016 4:43 AM EDT from Last 3 Months or Most Recently Relevant to Health Maintenance Results * (ABNORMAL) COMP METABOLIC PANEL (03/07/2016 7:19 AM EDT)ComponentValueRef RangeTest MethodAnalysis TimePerformed AtPathologist SignatureProtein, Total 6.76.3 - 8.0 g/dL03/07/2016 8:28 AM [facility] MAIN LABORATORYAlbumin 3.2(L)3.9 - 4.9 g/dL03/07/2016 8:28 AM [facility] Calcium9.28.5 - 10.5 mg/dL03/07/2016 8:28 AM [facility] MA[facility] LABORATORYBilirubin, Total0.50.2 - 1.3 mg/dL03/07/2016 8:28 AM [facility] MAIN LABORATORYAlkaline Vvesbuqlkqb409(H)36 - 108 U/L1 8:28 AM [facility] MAIN FYJLMIIGHPWAM4948 - 40 U/L1 8:28 AM EDT [facility] MA[facility] ONSTOTZFSQOyeczuh070(H)74 - 99 mg/dL03/07/2016 8:28 AM [facility] MAIN GHIYTWRWDCKDA917 - 24 mg/dL03/07/2016 8:28 AM EDT [facility] MAIN LABORATORYCreatinine1.37(H)0.73 - 1.22 mg/dL03/07/2016 8:28 AM [facility] MAIN XCRPKPKIXQZkkpky577867 - 144 mmol/L1 8:28 AM [facility] MA[facility] LABORATORYPotassium4.43.7 - 5.1 mmol/L 03/07/2016 8:28 AM [facility] MAIN KCVMACLJTOEhlqdjqk5836 - 105 mmol/L1 8:28 AM [facility] JEOUCKKGEYFK28713 - 30 mmol/L1 8:28 AM [facility] MA[facility] LABORATORYAnion Ply635 - 18 mmol/L1 8:28 AM [facility] MA[facility] QHXKILVHRVVUK7908 - 54 U/L 03/07/2016 8:28 AM [facility] MA[facility] LABORATORYeGFR->60 03/07/2016 8:28 AM [facility] MAIN LABORATORYeGFR-All Other Races55. 03/07/2016 8:28 AM [facility] MAIN LABORATORYComment: eGFR (Estimated GFR) Units of [...] Luz HERRERALABORATORY Final ResultPerforming OrganizationAddressCity/State/ZIP CodePhone Number [facility] [address] [place] [address] * HIV 1,2 COMBO (AG/AB) (02/27/2016 9:41 AM EDT)ComponentValueRef RangeTest MethodAnalysis TimePerformed AtPathologist SignatureHIV 12 Combo (Ag/Ab)Non ReactiveNon Sdvirfac76/ 8:39 PM [facility] Comment: (NOTE) HIV Information: ??[place] Rev. Code 3701.243(E): This information has been [...] AM EDT Narrative Authorizing ProviderResult TypeResult StatusDaniel Amboy DOLABORATORYFinal ResultPerforming OrganizationAddressCity/State/[facility] CodePhone Number [facility] [address] [place] [address] * (ABNORMAL) LIPID PANEL BASIC (02/14/2016 4:43 AM EDT)ComponentValueRef Range Test MethodAnalysis TimePerformed AtPathologist HvscuflzfJztsozbyqovr036(H)30 - 149 mg/dL02/14/2016 6:48 AM [facility] MAIN LABORATORYCholesterol, Huhaw509788 - 199 mg/dL02/14/2016 6:48 AM [facility] HDL Vefdaoazmbd10(L)>45 mg/dL02/14/2016 6:48 AM [facility] MAIN LABORATORYVLDL Qnytrcoqqub282 - 40 mg/dL02/14/2016 6:48 AM [facility] MAIN LABORATORYLDL Cholesterol, Jvxqbnlqtp1279 - 129 mg/dL02/14/2016 6:48 AM [facility] MA[facility] LABORATORYFasting UsvrWphprnrisu70/11/2016 6:48 AM [facility] MA[facility] LABORATORYTC:HDL Ratio5.50(H)1.00 - 5.00002/14/2016 6:48 AM [facility] MAIN LABORATORYLDL:HDL Ratio2.910.50 - 3.55 02/14/2016 6:48 AM [facility] MA[facility] LABORATORYNon HDL Dcfcmlpxiiu5453 - 159 mg/dL02/14/2016 6:48 AM EDTCMERCY [facility] MAIN LABORATORYSpecimen (Source)Anatomical Location / LateralityCollection Method / VolumeCollection TimeReceived TimeBlood specimen (specimen)BLOOD SPECIMEN / Tjpnjin6802/14/2016 4:43 AM EDT02/14/2016 4:44 AM EDT Narrative Authorizing ProviderResult TypeResult StatusTuba City Regional Health Care Corporationmaira Leos MDLABORATORYFinal ResultPerforming OrganizationAddressCity/State/ZIP CodePhone Number [facility] [address] [place] [place] [address] from Last 3 Months or Most Recently Relevant to Health Maintenance Insurance [address] [place] [address] Advance Directives * DNR/Comfort Care (Latest Code Status on File) Date ActivatedDate InactivatedComments02/29/2016 11:07 AM02/29/2016 11:08 AM QuestionAnswerCommentsDNR Order Discussed With:* Surrogate Decision Maker Care Teams Team MemberRelationshipSpecialtyStart DateEnd Date Jenaro Valadez DO [address] [place] [address] PCP - GeneralFamily Medicine10/26/16 Franklin Link DO ReferringOrthopedics10/26/16 Carlos A Bolanos [facility] [place] [address] Primary Staff PhysicianCardiology08/21/18
--- OUTSIDE RECORDS SUMMARY | 2025-05-24 18:46 | XMS_ITS | Patient Health Record ---
Author Organization [facility] Address [address] [place] [address] Support Name Relationship Address Phone Yamileth Feldman Emergency Contact [address] [place] [address] [address] [place] [address] MYRA FELDMAN Guarantor Unknown [phone] Reason For Referral No Information Plan Of Treatment No Information Insurance Providers Payer Name Payer Address Payer Phone Subscriber Number Group Number Insured Name Patient Relationship to Insured Coverage Start Date Coverage End Date [facility] [address] [place] [address] [id number] Alvaro FELDMAN - patient is the insured
--- OUTSIDE RECORDS SUMMARY | 2025-05-24 18:46 | XMS_ITS | Patient Health Record ---
Author Organization [facility] Address [address] [place] [address] Care Team Providers Care Translator And Interpreter Name Role Phone Diogo Rodriguez Primary Care Provider Ryan Bebeto Unavailable [phone] Reason For Referral No Information Plan Of Treatment No Information Insurance Providers Payer Name Payer Address Payer Phone Subscriber Number Group Number Insured Name Patient Relationship to Insured Coverage Start Date Coverage End Date [facility] Medicaid [address] [place] [address] [id number] Elizabeth FELIPE - patient is the [id number] 2022ap [facility] CareSourcePO [address] [place] [id number], SCOTTSelf - patient is the [id number] 2022[facility] [address]PO [address] [place] [id number], SCOTTSelf - patient is the [id number] 2022
--- OUTSIDE RECORDS SUMMARY | 2025-05-24 18:46 | XMS_ITS | Clinical Summary ---
Author Organization [facility] Address [address] [place] [address] Phone Care Team Providers Care Child Psychiatrist Name Role Phone Jenaro Valadez DO Primary Care Provider [phone] Allergies Active AllergyReactionsCriticalityNoted FwznVqwmzrqqHvokrNzvntkb97/23/2023 GyvpysztndwLxrnihycnokQqsd87/23/2023 Medications MedicationSigDispense QuantityRefillsLast FilledStart DateEnd DateStatus albuterol [...] 24 hr tablet Indications:Coronary artery disease involving [place] coronary artery of [place] heart without angina pectorisTake 1 tablet (25 mg) by mouth once daily. Do not crush or chew. 90 tablet ctive furosemide (Lasix) 40 mg tablet Indications:Localized edemaTake 1 tablet (40 mg) by mouth once daily. 90 tablet ctive aspirin 81 mg EC tablet Indications:Hyperlipidemia, unspecifiedTake 1 tablet (81 mg) by mouth once daily. 90 tablet tive magnesium oxide (Mag-Ox) 400 mg tablet Indications:PalpitationsTake 1 tablet (400 mg) by mouth once daily.12/26/2024 Active Active Problems ProblemNoted DateDiagnosed DateCAD (coronary artery disease)01/01/2024OPD (chronic obstructive pulmonary disease)01/01/2024Shortness of zsdgct4901/01/2024 PVD (peripheral vascular disease)01/01/2024Symptomatic qysjmmjpnfg52/29/2024 Encounter for pre-operative cardiovascular vcrgkqiss69/21/2024Former smoker 10/24/2023iabetes guyyytqf74/23/2023History of PTCA1Hyperlipidemia 9208Lymygzdilvhn45/23/2023 Resolved Problems ProblemNoted DateDiagnosed DateResolved DateEssential umosejwkcech14/29/2024 01/01/2024 Family History Medical HistoryRelationNameCommentsDiabetesMotherHypertensionMotherbypass graft mechanical complicationMotherRelationNameStatusCommentsMother Social History Tobacco UseTypesPacks/DayYears UsedDateSmoking Tobacco: FormerCigarettesQuit: mokeless Tobacco: NeverAlcohol UseStandard Drinks/WeekCommentsNever0 (1 standard drink = 0.6 oz pure alcohol)Sex and Gender InformationValueDate RecordedSex Assigned at BirthNot on fileLegal AftHdxs03/26/2022 1:33 AM EST Gender IdentityNot on fileSexual OrientationNot on file Last Filed Vital Signs Vital SignReadingTime TakenCommentsBlood Wpmjmepz016/8609 9:05 AM EDT Jiexx9358 9:05 AM EDTTemperature--Respiratory Rate--Oxygen Saturation-- Inhaled Oxygen Concentration--Qnvvmd70.7 kg (211 lb)01/17/2024 12:34 PM EDT Kulkyj602.9 cm (6')01/17/2024 12:34 PM EDTBody Mass Index28.6208 12:34 PM EDT Plan of Treatment Health MaintenanceDue DateLast DoneCommentsCT Jbyrroltovhq43/27/1966Creatinine Level1965Diabetes: Hemoglobin A1C1965Diabetes: Urine Protein Ucvpkggtf02/27/1966FIT-DNA (Cologuard)1965FIT1965HIV Screening 1965Lipid Panel1965Potassium Level1965 1431Bdhixzfdrldxq42/27/1966 Yearly Adult Kkfedmaw55/27/1966MMR Vaccines (1 of 1 - Standard series)1966 Diabetes: Retinopathy Mexpaitqy99/27/1976Hepatitis C Ccuwxdzes50/27/1984 Hepatitis B Vaccines (1 of 3 - 19+ 3-dose series)1984PSA Prostate Cancer Ybofsehey87/27/2016Zoster Vaccines (1 of 2)2015Pneumococcal Vaccine (2 of 2 - PCV), 02/22/2016COVID-19 Vaccine (3 - season) /04/2021, 10/23/2020Influenza Vaccine (#1)/05/2019, 04/02/2018, 03/05/2018, Additional history hoqghqMgdtabsjnpxeao87/08/2026 10/10/2024, 03/03/2024, 6824Oogxvxyywue57Colorectal Cancer Guapyqywi20/23/2029DTaP/Tdap/Td Vaccines (2 - Td or Tdap)08/05/2033 08/06/2023HIB VaccinesAged OutNo longer eligible based on patient's age to complete this topicHPV VaccinesAged OutNo longer eligible based on patient's age to complete this topicHepatitis A VaccinesAged OutNo longer eligible based on patient's age to complete this topicIPV VaccinesAged OutNo longer eligible based on patient's age to complete this topicMeningococcal VaccineAged OutNo longer eligible based on patient's age to complete this topicRotavirus VaccinesAged Out No longer eligible based on patient's age to complete this topic Procedures Procedure NamePriorityDate/TimeAssociated DiagnosisCommentsECHOCARDIOGRAM 10/10/2024 from Last 3 Months or Most Recently Relevant to Health Maintenance Results * Echocardiogram (10/10/2024) Narrative 10/10/2024 Ordered by an unspecified provider. Authorizing ProviderResult TypeResult StatusGeneric Provider ScanningCV ECHO PROCEDURESFinal Result from Last 3 Months or Most Recently Relevant to Health Maintenance Insurance * Guarantor: Solomon FeldmanAccount TypeRelation to PatientDate of BirthPhone Billing AddressPersonal/NwpajdKsxc09/27/1966 [address] [place] [id number] * Guarantor: Solomon FeldmanAccount TypeRelation to PatientDate of BirthPhone Billing AddressPersonal/GzqrilWqox13/27/1966 [address] [place] [address] Care Teams Team MemberRelationshipSpecialtyStart DateEnd Date Jenaro Valadez DO [address] [place] [address] [facility]11/04/24
--- OUTSIDE RECORDS SUMMARY | 2025-05-24 18:46 | XMS_ITS | Clinical Summary ---
Author Organization [employer] s tem Address [id number] [address] [place] [address] Care Team Providers Care Jig Bore Operator Name Role Phone Unavailable Primary Care Provider Unavailabl e Allergies Active AllergyReactionsCriticalityNoted DateCommentsIsosorbide DinitrateOther (See Comments)Low08/04/2014 Headache LatexDermatitis,Itching,PxswUhw68/23/2023PenicillinsAnaphylaxis,HivesHigh 11/04/20136922Dxvxvzjwbacf39/10/2017 Darvocet Medications MedicationSigDispense QuantityRefillsLast FilledStart DateEnd DateStatus aspirin 81 mg Take 1 tablet (81 mg total) by mouth in the morning.10/06/2023ctive atorvastatin (LIPITOR) 80 mg tablet Take 1 tablet (80 mg total) by mouth in the morning.10/06/2023ctive amitriptyline (ELAVIL) 25 mg tablet Take 1 tablet (25 mg total) by mouth in the morning.09/03/2023ctive clopidogreL (PLAVIX) 75 mg tablet Take 1 tablet (75 mg total) by mouth in the morning.Active glimepiride (AMARYL) 2 mg tablet Take 1 tablet (2 mg total) by mouth in the morning and 1 tablet (2 mg total) before bedtime.Active metFORMIN (GLUCOPHAGE) 1000 mg tablet Take 1 [...] 1 tablet (1 mg total) before bedtime.Active empagliflozin (JARDIANCE) 10 mg tablet tablet Take [...] the morning and 2 puffs before bedtime.Active tiotropium (SPIRIVA WITH HANDIHALER) 18 mcg per inhalation capsule Place 1 capsule (18 mcg total) into inhaler and inhale as needed.11/23/2022 Active DULoxetine (CYMBALTA) 60 mg capsule Take [...] in the morning and at bedtime.06/26/2023 Active pregabalin (LYRICA) 200 mg capsule Take 1 capsule (200 mg total) by mouth in the morning and 1 capsule (200 mg total) at noon and 1 capsule (200 mg total) before bedtime.09/28/2023ctive dulaglutide 0.75 mg/0.5 mL pen injector Inject 0.5 mL (0.75 mg total) under the skin once a week.4Active calcium carbonate (OS-RACHEL) 500 mg elemental (1,250 mg) chewable tablet Chew 1 tablet (500 mg total) and swallow in the morning.Active hydrOXYzine (ATARAX) 25 mg tablet Take 1 tablet (25 mg total) by mouth nightly.5Active allopurinoL (ZYLOPRIM) 100 mg tablet Take 1 tablet (100 mg total) by mouth in the morning.5Active magnesium oxide (MAGOX) 400 mg tablet Take 1 tablet (400 mg total) by mouth in the morning.5Active cilostazoL (PLETAL) 50 mg tablet Take 1 tablet (50 mg total) by mouth in the morning and 1 tablet (50 mg total) before bedtime. 180 tablet 5Active isosorbide mononitrate (IMDUR) 30 mg 24 hr tablet Take 1 tablet (30 mg total) by mouth daily.05/22/2025Discontinued(Allergic response) AJOVY AUTOINJECTOR 225 mg/1.5 mL Inject 1.5 mL (225 mg total) under the skin every 30 (thirty) days.07/18/2023 05/22/2025Discontinued(Therapy completed) ubrogepant 100 mg tablet Take 100 mg by mouth daily as needed.05/22/2025Discontinued(Therapy completed) tiZANidine (ZANAFLEX) 4 mg capsule Take 1 capsule (4 mg total) by mouth as needed in the morning and 1 capsule (4 mg total) as needed at noon and 1 capsule (4 mg total) as needed in the evening for muscle spasms.Discontinued(Therapy completed) Active Problems ProblemNoted DateDiagnosed DatePAD (peripheral artery disease)05/19/2025ritical limb ischemia of left lower extremity with wkalippi92/30/2025 Assessment & Plan (04/03/2025 10:51 AM EDT): Needs LLE angio and intervention once cleared by nephrology Cigarette vijlkt9202/28/2025 Assessment & Plan (02/28/2025 5:59 PM EDT): Counseled him on smoking cessation for at least 4 minutes Critical limb ischemia of left lower extremity with srrjoywn68/25/2025 Assessment & Plan (02/28/2025 6:00 PM EDT): CTA aorta with runoff PVR Continue aspirin 81 mg atorvastatin 80 mg and Plavix 75 mg. Hx of right BKA02/27/2025ltered mental hhkzkq3103/15/20246427Fqwwfn96/11/2024trial uegfmqpfdzdc97/11/2024igarette nicotine dependence with nicotine-induced aqsozlaz47/11/7648Ioaafvj49/11/2024hronic back pain03/15/2024Encounter for orthopedic aftercare following surgical nzuxreyfrd57/25/2024Muscle spasm 02/28/2024igarette aqzhwc1101/18/2024 Assessment & Plan (01/18/2024 9:04 AM EDT): Counseled him on smoking cessation at length. He is willing to quit. Symptomatic kencmrimqsw10/29/2024iabetic polyneuropathy associated with type 2 diabetes qxffnpje82/21/2024hest pain in adult11/10/2023hronic kidney disease 11/10/2023rescendo ksdyfx2011/10/2023iabetic nephropathy associated with secondary diabetes wjigczwr44/07/1118Fmlfcgxqginj49/07/2024Leg edema11/10/2023 Vgdjhoxql84/27/7217Rpxjsxqttwwn33/27/2024 Overview (10/30/2023): Will need to get back off opioids Encourage use of tylenol and pregabalin Neck pain10/30/2023Head ache10/30/2023Gross ppuqweanu75/27/2024Heart attack 10/30/2023Heart ygvhym4410/30/20239253Wctiurkjr74/27/1935Efhdsj13/27/2024Urinary lrlnujqoz52/27/2024Muscle weakness (generalized)10/30/2023Other abnormalities of gait and yctirulw25/27/2024eripheral arterial yqumokq8810/30/2023therosclerosis of [place] coronary artery of [place] heart without angina cmcbbhix49/03/2024 Pyogenic inflammation of bone10/06/2023hronic obstructive pulmonary disease 10/06/2023igarette smoker motivated to quit10/06/2023 Assessment & Plan (11/30/2023 9:19 AM EDT): Counseled on smoking cessation for at least 3 minutes Assessment & Plan (10/18/2023 8:52 AM EDT): Counseled in length willing to quit. BPH with obstruction/lower urinary tract marglddf15/03/2024Gastroesophageal reflux nwhescw8910/06/2023estless leg /03/2024Heart ksrlxrs5010/06/2023 Udoxvqug72/10/4661Xnrusizqbvcuyv98/25/2021arpal tunnel syndrome, right upper limb10/02/2020aresthesia and pain of both upper pdqdvnyfdby93/20/2021 Overview (03/15/2024): Last Assessment & Plan: *06/14/2023 [...] to urinary issues. Paresthesia of bilateral legs09/22/2020Mixed swdvpicmybkphn59/12/2016 Overview (10/30/2023): Cont home atorva Sleep apnea08/04/20140128Scyuhesyupan42/03/2014 Overview (10/30/2023): Continue home amlodipine 10mg QD Metoprolol 50mg bid Lisinopril on hold Monitor BP regularly Resolved Problems ProblemNoted DateDiagnosed DateResolved DateDelayed surgical wound healing of foot amputation stumpressure ulcer of right ankle, stage 3 ritical limb ischemia of right lower extremity with lpssjnti13 Assessment & Plan (01/18/2024 9:03 AM EDT): Right below-knee amputation. Will do it here at [facility]. Assessment & Plan (12/21/2023 8:57 AM EDT): We did iliofemoral endarterectomy and femoral above-knee bypass. He has some residual tibial occlusive disease. I discussed with him doing right lower extremity angiogram and intervention. [facility] do this [facility] at [facility]. Assessment & Plan (10/18/2023 8:32 AM EDT): PVR and CTA abdomen and plevis with runoff Abscess of right footStatus post partial amputation of right footType 2 diabetes mellitus with stage 4 chronic kidney disease, without long-term current use of /acterial pecgos53/12/2023 Encounters DateTypeDepartmentCare ZysvLavchgorkhx43/18/2025 1:20 PM EST - 05/22/2025 2:20 PM ESTSurgery [facility] [address] [place] [address] Padmini Montes MD Lower Ext Angiogram-co205/22/2025 10:51 AM EST - 05/22/2025 7:05 PM ESTHospital Encounter [facility] - CVU-IVU [address] [place] [address] Padmini Montes MD 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 ([facility]); PAD (peripheral artery disease) Discharge Disposition: Home05/22/20253886Cetlhk49/15/2025Orders Only [facility] [address] [place] [address] Mary Shah 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 ([facility]) (Primary Dx); PAD (peripheral artery disease)05/09/2025Telephone [facility] [address] [place] [address] Mary Shah 04/03/2025 11:00 AM EDTOffice Visit [facility] [place] [address] Padmini Montes MD 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 ([facility]) (Primary Dx); Cigarette smoker; Hx of right BKA ([facility]); Chronic kidney disease, unspecified CKD stage04/03/20251298Eicwwd26/29/2025Orders Only [facility] [address] [place] [address] Ref Prov, Not In System 04/01/2025Telephone [facility] [address] [place] [address] Padmini Montes MD 03/31/2025Telephone [facility] [address] [place] [address] Jess Aguilar CMA 03/28/2025Telephone [facility] [address] [place] [address] Padmini Montes MD 03/27/2025Telephone [facility] [address] [place] [address] Padmini Montes MD 03/13/2025Telephone [facility] [place] [address] [place] [address] Jess Aguilar CMA 02/27/2025 10:50 AM EDTOffice Visit [facility] [place] [address] [place] [address] Padmini Montes MD 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 ([facility]) (Primary Dx); Hx of right BKA ([facility]); Cigarette sratza0702/27/2025Travelfrom Last 3 Months Immunizations ImmunizationAdministration DatesNext DueInfluenza, Im Trivalent Preservative 01/14/2019Influenza, Injectable, quadrivalent (PF)04/02/2018,03/07/2016 Influenza, Gttaxgeygdy99/12/2019Pneumococcal Pddujiopqbzcic81/19/2016 Social History Tobacco UseTypesPacks/DayYears UsedDateSmoking Tobacco: Every JeiLsgiivzppw912.6 Started: 10/05/1981Smokeless Tobacco: NeverAlcohol UseStandard Drinks/Week CommentsYes0 (1 standard drink = 0.6 oz pure alcohol)occassionallyPROTESTANT HOSPITAL Utilities AnswerDate RecordedIn the past 12 months has the [employer], gas, oil, or water [employer] threatened to shut off services in your [...] as a part of a household?No11/07/2023hildcareAnswerDate Recorded BnvulkvvdPdowstb73/10/2019EmploymentAnswerDate RecordedEmploymentUnknown 11/12/2018Hunger ScreeningAnswerDate RecordedWithin the past 12 months we worried whether our food would run out before we got money to buy more.Never True02/29/2024Within the past 12 months the food we bought just didn't last and we didn't have money to get more.Never True02/29/2024Sex and Gender Information ValueDate RecordedSex Assigned at BirthNot on fileLegal XpjGapi9401/06/2015 1:04 PM EDTGender IdentityNot on fileSexual OrientationNot on file Last Filed Vital Signs Vital SignReadingTime TakenCommentsBlood Mokzfkfh354/6705/22/2025 6:00 PM EST Ucwav213305/22/2025 6:00 PM ILNTwculndkdgk02.7 ??C (98 ??F)03/19/2024 5:26 PM EDT Respiratory Quxl653907/23/2024 6:00 PM ESTOxygen Jqdwvnubhm73%05/22/2025 6:00 PM ESTInhaled Oxygen Concentration--Syndms62.3 kg (208 lb)05/22/2025 11:39 AM EST Libavh380.9 cm (6')05/22/2025 11:39 AM ESTBody Mass Index28. 11:39 AM EST Plan of Treatment DateTypeDepartmentCare Team (Latest Contact Info)Yfzbvfllves74/13/2026 1:00 PM ESTAppointment [facility] [address] [place] [address] Padmini Montes MD [address], [address] [place] [address] 06/19/2025 11:20 AM ESTOffice Visit [facility] [place] [address] [address] [place] [address] Padmini Montes MD [address], [facility] [address] [place] [address] Health MaintenanceDue DateLast DoneCommentsDiabetic Ophthalmology Exam1965 Statin Use: Kdcnxfiqifzgic73/27/1966Statin Use: Bkqccckc55/27/1966Tobacco Cwkiyzhejp15/27/1966Adult BMI Follow Up Plan1983Diabetic Foot Exam 1983DTaP,Tdap and Td Vaccines (1 - Tdap)1984Zoster (Shingles) Vaccine (1 of 2)2015Depression Mpkizdviw02/OVID-19 Vaccine (3 - season)02/03/734283/04/2021, 10/23/2020Influenza Vaccine /05/2019, 01/14/2019, 04/02/2018, Additional history existsAdult BMI Rofqzccrn86/Tobacco Chgdphzuk99 Goals GoalPatient Goal TypeAssociated ProblemsRecent ProgressPatient-Stated?Author Patient is planning to transition back to SNF at discharge. Chandrika Weber LSW Note: Evaluation of progress towards goal: Patient is planning to transition back to SNF at discharge. Medical Devices ImplantedTypeAreaManufacturerDevice IdentifierShelf Expiration DateModel / Serial / LotGraft Vsc 50cm 6mm Dierks Thnwl Hep Propaten Ptfe Rem Rng - [id number] - [id number] Implanted:Qty: 1 on 11/08/20[facility]: [id number]/19/[id number] / [id number] / Description:RIGHT FEMORAL ARTERYStent Vsc Epic 10mm 100mm 120cm 6fr Rdpq Otw Slf Xpd Gw - [id number] Implanted:Qty: 1 on 11/07/2023 by Padmini Montes MD at [facility] SCIENTIFIC/PERIPHERAL [id number]/ [id number] / / [id number] Vsc Innova 7mm 100mm 75cm 6fr Dlv Sys Rdpq Slf Xpd Rpl [id number] - [id number] Implanted:Qty: 1 on 05/22/2025 by Padmini Montes MD at [facility] SCIENTIFIC/PERIPHERAL [id number]/ [id number] / / [id number] Procedures Procedure NamePriorityDate/TimeAssociated DiagnosisCommentsVASCULAR INVASIVE Ynoxzsk3805/22/2025 3:09 PM EST 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 ([facility]) PAD (peripheral artery disease) PORTABLE IMDUJQUCbxudky20/18/2025 11:33 AM EST POCT BUN, DVRTVDsllxwr66/18/2025 11:33 AM EST VASC ARTERIAL DUPLEX LOWER NVUKEPOHAFmuusyn69/29/2025 3:46 PM EDTfrom Last 3 Months Results * VASCULAR INVASIVE (05/22/2025 3:09 PM EST)Anatomical RegionLateralityModality X-Ray AngiographySpecimen (Source)Anatomical Location / LateralityCollection Method / VolumeCollection TimeReceived Time Narrative 05/23/2025 5:53 PM EST Recommendations: Aspirin Plavix and cilostazol. Procedure Details Patient Name: Solomon Feldman Medical Record: [id number] Date of Operation: 05/23/2025 Preoperative Diagnosis: Left [...] chronic totally occluded SFA with atherectomy using Rotarex atherectomy devicewith balloon angioplasty and stenting using [...] no contrast. The patient has 2 runoffs pbiiy-kcp-edwy with the major runoff being the posterior [...] The patient was then taken to the orthodontic laboratory technician and transferred to the table. Bilateral groins [...] tolerated the procedure well. Authorizing ProviderResult TypeResult StatusMohamed Jennifer Montes [facility] CARDIAC CATH ORDERABLESFinal Result * (ABNORMAL) Portable Glucose Istat (05/22/2025 11:33 AM EST)ComponentValueRef RangeTest MethodAnalysis TimePerformed AtPathologist SignaturePOC Wlusjkx129 (H)65 - 99 mg/dL05/22/2025 3:24 PM ESTTOADENA REGIONAL MED[facility] LABORATORYSpecimen (Source)Anatomical Location / LateralityCollection Method / VolumeCollection TimeReceived Time05/22/2025 11:33 AM EST05/22/2025 3:24 PM EST Narrative Authorizing ProviderResult TypeResult StatusMohamsalima Simon [facility] CENTEROINT OF CARE TEST ORDERABLESFinal ResultPerforming OrganizationAddressCity/State/ZIP CodePhone Number [facility] [address] [place] [address], * (ABNORMAL) POCT BUN, Creat (05/22/2025 11:33 AM EST)ComponentValueRef Range Test MethodAnalysis TimePerformed AtPathologist SignaturePOC BUN25(H)6 - 23 mg/dL05/22/2025 3:25 PM [facility] Creatinine2.0(H)0.7 - 1.2 mg/dL05/22/2025 3:25 PM [facility] EGFR Non-Race Kpimadfzp37(L)>=60 ml/min/1.73sq.m107/23/2024 3:25 PM [facility]ORATORYComment: Reported eGFR is based on the CKD-EPI 2020 equation that does not use a race coefficient. Specimen (Source)Anatomical Location / LateralityCollection Method / Volume Collection TimeReceived Time05/22/2025 11:33 AM EST05/22/2025 3:24 PM EST Narrative Authorizing ProviderResult TypeResult StatusMohamed Jennifer Montes MDPOINT OF CARE TEST ORDERABLESFinal ResultPerforming OrganizationAddressCity/State/ZIP CodePhone Number [facility] [address] [place] [address], [place] * Vas art duplex lwr bilateral (04/02/2025 3:46 PM EDT)Anatomical Region LateralityModalityVascularBilateralUltrasound Narrative Authorizing ProviderResult TypeResult StatusNot In System Ref ProvCV VASCULAR ORDERABLESFinal Result from Last 3 Months Insurance Advance Directives * Full Code (Latest Code Status on File) Date ActivatedDate InactivatedComments11/07/2023 4:31 PM11/14/2023 9:31 PM
--- OUTSIDE RECORDS SUMMARY | 2025-05-24 18:46 | XMS_ITS | Clinical Summary ---
Author Organization [facility] Healthcare Address [address] [place] [address] Care Team Providers Care Cottrell Blower Name Role Phone Jenaro Valadez DO Unavailable Jenaro Valadez DO Primary Care Provider [phone] Allergies Active AllergyReactionsCriticalityNoted QaucDrsiulpbQcmlyerqkjzvmMzz02/26/2024 Other Reaction(s): Vomiting Isosorbide TqphdqdFfswcUrt93/02/2015 Headache LatexDermatitis,Itching,Rash,DywbtbqSrt45/23/5414VqtqsamjpOvs84/26/2024 Other Reaction(s): Vomiting PenicillinsAnaphylaxis,AjcgsSjvq44/02/2014Oxycodone-Rkqdppilazjmf94/10/2017 Ssosqogovivo71/10/2017 Darvocet DrgmmdtmbeQycsvXfk15/26/2024 Medications MedicationSigDispense QuantityRefillsLast FilledStart DateEnd DateStatus tamsulosin (Flomax) 0.4 MG 24 hr capsule Take 1 capsule (0.4 mg total) by mouth nightly.06/26/2023ctive dulaglutide (Trulicity) 0.75 MG/0.5ML solution pen-injector Inject 0.5 mL (0.75 mg total) under the skin once a week.07/12/2023ctive sildenafil (Viagra) 100 MG tablet TAKE 1 TABLET BY MOUTH EVERY DAY MMSEDB3205/16/2023ctive omeprazole (PriLOSEC) [address] capsule 1 [...] other route every morning before breakfast.08/16/2023ctive HYDROcodone-acetaminophen ([place]) 5-325 MG tablet 12/12/2023ctive Insulin Lispro 100 UNIT/ML solution Inject under the skin. Take as directed per insulin instructions.Active isosorbide mononitrate ER (Imdur) 30 MG 24 hr tablet Take 1 tablet (30 mg total) by mouth daily.07/28/2023ctive Lancets (Crux BiomedicalTouch Delica Plus Uiocfm61P) [facility] [place] 12/12/2023ctive loperamide (Imodium A-D) 2 MG tablet [...] 90 tablet ctive Active Problems ProblemNoted DateDiagnosed SutxGwibkjck77/10/8079Tixoexblnlqdva71/25/2021arpal tunnel syndrome, right upper limb10/02/2020aresthesia and pain of both upper yvlvnpkexxc85/20/2021 Assessment & Plan (12/17/2023 8:08 PM EDT): [...] of bilateral legs09/22/2020 Immunizations ImmunizationAdministration DatesNext DueInfluenza, Wapmoenhmal36/12/2019 Influenza, injectable, quadrivalent, preservative free04/02/2018,03/07/2016 Pneumococcal Polysaccharide [id number] Family History Medical HistoryRelationNameCommentsAlzheimer's diseaseMotherDiabetesMotherHeart diseaseMotherVascular diseaseMotherRelationNameStatusCommentsMother Social History Tobacco UseTypesPacks/DayYears UsedDateSmoking Tobacco: Never AssessedSex and Gender InformationValueDate RecordedSex Assigned at BirthNot on fileLegal Sex Male08/17/2022 6:50 PM EDTGender IdentityNot on fileSexual OrientationNot on file Last Filed Vital Signs Vital SignReadingTime TakenCommentsBlood Yrueldxt846/70006/14/2023 8:20 AM EST Pulse--Temperature--Respiratory Rate--Oxygen Saturation--Inhaled Oxygen Concentration--Xwtpmc12.9 kg (218 lb)06/14/2023 8:20 AM GCDUqedah680.8 cm (5' 10 )06/14/2023 8:20 AM ESTBody Mass Index31.28006/14/2023 8:20 AM EST Plan of Treatment Not on file Insurance [address] [place] [phone] Care Teams Team MemberRelationshipSpecialtyStart DateEnd Date Jenaro Valadez DO PCP - External PCP03/05/23 Jenaro Valadez DO PCP - Vahmtlx36/8/24
[2025-05-24 18:52] LABS: INR 1.05; Partial Thromboplastin Time 30.2 sec (22.3-36.2); Prothrombin Time 11.0 sec (9.0-11.6)
[2025-05-24 19:00] LABS: Alanine Aminotransferase 17 U/L (16-63); Albumin Globulin Ratio 0.8; Albumin Level 3.1 g/dL (3.4-5.0); Alkaline Phosphatase 161 U/L (46-116); Anion Gap 12.1; Aspartate Amino Transferase 8 U/L (15-37); Blood Urea Nitrogen 16.0 mg/dL (7.0-18.0); Calcium 8.6 mg/dL (8.5-10.1); Carbon Dioxide 26.5 mmol/L (21.0-32.0); Chloride 92 mmol/L (98-107); Estimated GFR (African America 28 (>=60 mL/min/1.73m^2); Estimated GFR (Non-African Ame 23 (>=60 mL/min/1.73m^2); Globulin 4.1 g/dL; Potassium 3.6 mmol/L (3.5-5.1); Sodium 127 mmol/L (136-145); Total Protein 7.2 g/dL (6.4-8.2)
[2025-05-24 19:03] LABS: Glucose 618 mg/dL (74-106)
[2025-05-24 19:04] LABS: Lactate/Lactic Acid 3.7 mmol/L (0.4-2.0)
[2025-05-24] MEDS: 0.9 % SODIUM CHLORIDE 1,000 ML 999 ML IV (19:37)
[2025-05-24] MEDS: INSULIN REGULAR, HUMAN (100 UNIT/ML) 10 ML MDV 20 UNIT SUBQ (19:39)
[2025-05-24 21:17] LABS: Lactate/Lactic Acid 2.3 mmol/L (0.4-2.0)
[2025-05-24] MEDS: MORPHINE SULFATE 2 MG/ML SYRINGE IV (21:39)
[2025-05-24] MEDS: 0.9 % SODIUM CHLORIDE 1,000 ML 125 ML IV (22:21)
[2025-05-24] MEDS: ALBUTEROL SULFATE 2.5 MG/3 ML VIAL NEB IH (22:31)
[2025-05-24] MEDS: TRAMADOL HCL 50 MG TABLET PO (22:32)
[2025-05-24] MEDS: METOPROLOL TARTRATE 25 MG TABLET 50 MG PO (22:33)
[2025-05-24] MEDS: TAMSULOSIN HCL 0.4 MG CAPSULE PO (22:33)
[2025-05-24] MEDS: ROPINIROLE HCL 0.25 MG TABLET 0.5 MG PO (22:33)
[2025-05-24] MEDS: GLIMEPIRIDE 2 MG TABLET 1 MG PO (22:33)
[2025-05-24] MEDS: HEPARIN SODIUM (PORCINE) 5,000 UNIT/ML VIAL 5000 UNIT SUBQ (22:33)
[2025-05-24] MEDS: INSULIN ASPART 300 UNIT/3 ML PEN SUBQ (22:33)
[2025-05-24 23:27] LABS: Glucose Urine UA >=1000 mg/dL (NEGATIVE)
[2025-05-24 23:42] LABS: Cast Seen? NONE SEEN #/LPF (NONE SEEN); Crystals Seen? None Seen #/HPF (None Seen)
[2025-05-24 23:43] LABS: Urine Culture Indicated NO
[2025-05-25] VITALS (10 sets, daily range): BP systolic 110–124; BP diastolic 63–76; PULSE 70–102; TEMP 36.6–37.4; O2SAT 91–98
[2025-05-25] MEDS: HYDROMORPHONE HCL 0.5 MG/0.5 ML SYRINGE 0.25 MG IV ×2 (02:39→09:27)
[2025-05-25] MEDS: ALBUTEROL SULFATE 2.5 MG/3 ML VIAL NEB IH ×4 (05:05→20:41)
[2025-05-25] MEDS: TRAMADOL HCL 50 MG TABLET PO (05:50)
[2025-05-25] MEDS: ROPINIROLE HCL 0.25 MG TABLET 0.5 MG PO ×3 (05:51→21:14)
[2025-05-25] MEDS: HEPARIN SODIUM (PORCINE) 5,000 UNIT/ML VIAL 5000 UNIT SUBQ (05:51)
[2025-05-25 06:16] LABS: Hematocrit 45.7 % (42.0-54.0); Hemoglobin 15.8 g/dL (14.0-18.0); Immature Granulocytes Abs Auto 0.04 10^3/uL (0.00-0.03); Immature Granulocytes Pct Auto 0.4 % (0.0-0.5); Lymphocytes Absolute Auto 1.6 10^3/uL (1.2-3.8); Mean Corpuscular HGB Conc 34.6 g/dL (29.9-35.2); Mean Corpuscular Hemoglobin 30.4 pg (25.9-34.0); Mean Corpuscular Volume 88.1 fL (80.0-94.0); Platelet Count 118 10^3/uL (150-450); Red Blood Count 5.19 10^6/uL (4.70-6.10); White Blood Count 10.3 10^3/uL (4.0-11.0)
[2025-05-25 06:25] LABS: Anion Gap 9.7; Blood Urea Nitrogen 14.0 mg/dL (7.0-18.0); Calcium 8.6 mg/dL (8.5-10.1); Carbon Dioxide 27.6 mmol/L (21.0-32.0); Chloride 101 mmol/L (98-107); Estimated GFR (African America 37 (>=60 mL/min/1.73m^2); Estimated GFR (Non-African Ame 30 (>=60 mL/min/1.73m^2); Glucose 196 mg/dL (74-106); Potassium 3.3 mmol/L (3.5-5.1); Sodium 135 mmol/L (136-145)
[2025-05-25 06:37] LABS: Lactate/Lactic Acid 1.9 mmol/L (0.4-2.0)
[2025-05-25] MEDS: INSULIN ASPART 300 UNIT/3 ML PEN SUBQ ×4 (08:42→21:12)
[2025-05-25] MEDS: CLONAZEPAM 0.5 MG TABLET PO (09:24)
[2025-05-25] MEDS: TAMSULOSIN HCL 0.4 MG CAPSULE PO ×2 (09:24→21:14)
[2025-05-25] MEDS: PREGABALIN 100 MG CAPSULE 400 MG PO (09:24)
[2025-05-25] MEDS: ATORVASTATIN CALCIUM 40 MG TABLET 80 MG PO (09:24)
[2025-05-25] MEDS: ALLOPURINOL 100 MG TABLET PO (09:25)
[2025-05-25] MEDS: METOPROLOL TARTRATE 25 MG TABLET 50 MG PO ×2 (09:25→21:14)
[2025-05-25] MEDS: LINAGLIPTIN 5 MG TABLET PO (09:25)
[2025-05-25] MEDS: GLIMEPIRIDE 2 MG TABLET 1 MG PO ×2 (09:25→21:14)
[2025-05-25] MEDS: ASPIRIN 81 MG TAB.CHEW PO (09:25)
[2025-05-25] MEDS: FUROSEMIDE 40 MG TABLET PO (09:26)
[2025-05-25] MEDS: CLOPIDOGREL BISULFATE 75 MG TABLET PO (09:26)
[2025-05-25] MEDS: PANTOPRAZOLE SODIUM 40 MG TABLET.DR PO (09:26)
[2025-05-25] MEDS: BUDESONIDE 0.5 MG/2 ML AMPULE NEB IH ×2 (11:00→20:41)
[2025-05-25] MEDS: MORPHINE SULFATE 4 MG/ML VIAL IV ×3 (13:04→23:30)
[2025-05-25] MEDS: POTASSIUM CHLORIDE 10 MEQ ER TABLET 30 MEQ PO (13:05)
[2025-05-25] MEDS: MAGNESIUM OXIDE 400 MG TABLET PO (13:05)
[2025-05-25] MEDS: DAPAGLIFLOZIN 5 MG TABLET PO (13:06)
--- NOTE | 2025-05-25 14:37 | PM.HP ---
HPI H&P: HPI History of Present Illness Chief complaint: Severe right knee pain, hyperglycemia. Narrative: This is a 59-year-old man who came to the emergency room at [facility] Monday evening with severe pain in his left knee. He explained to the ER that he had had a vascular surgery procedure by Dr. Montes at [facility] in [facility] on . During that procedure stents were placed in most of the areas where vascular surgery wanted to place them (but also one area they were unsuccessful in stenting) per his report. During their procedure the patient felt a pop in his knee and ever since then has had a tremendous amount of left knee pain. The pain continued on Monday and all day yesterday on Monday so he decided to come to the emergency room. In the ER they got an x-ray series of the knee which was read by radiology as showing nothing remarkable. The ER did get a vascular ultrasound on this leg which came back showing no acute vascular emergency. The ER's note does describe that they called and discussed the case with vascular surgery with Dr. Montes. And then it was decided to place the patient in observation status overnight because of hyperglycemia. The patient's blood glucose was 618. He also had an elevated lactic acid at 3.7. So he was given IV fluids and his lactic acid improved down to 2.3 and then 1.9 this morning. Because of the hyperglycemia yesterday with a blood glucose of 618 his sodium resulted reflexively low at 127, but when calculated for correction and that hyperglycemia is corrected sodium is 135. When I see the patient on rounds this morning he is having a tremendous amount of pain in the right knee. It has not responded to oral medications with tramadol and IV Dilaudid at 0.25 mg IV every 4 hours. The patient indicates that the morphine that he was given in the emergency room worked better for the knee pain. He is accompanied at the bedside by his . She says he is never want to complain of pain. He has had a lot of vascular surgeries and then the amputation of his right leg below the knee in the past and this is by far the most pain he is ever had. He normally uses this left leg and left knee to mobilize himself. He uses a scooter but also motorized wheelchair and he can usually stand and pivot and do transfers by standing on the left leg without any pain or problems. He does admit that he has a tremendous amount of peripheral neuropathy going all the way up the leg towards his thigh so he cannot feel how my hands are when I am examining of the revascularized part of his lower leg but he can feel all of this pain in his knee. He has not had any whole body symptoms such as fevers or chills or arthralgias or myalgias anywhere else in his body. He says that he normally controls his blood sugar at home with oral regimen and weekly Trulicity injections and he uses a continuous glucose meter and when he has hyperglycemia it sounds like he does use sliding scale insulin at home. The patient points to the area on his knee at the lower portion of the patella where he has a little bit of edema coming out both on the right and the left side. He can flex and extend the knee and drag his heel up and down the bed although this obviously causes him pain. He says that sometimes the pain comes and sharp waves and other times it seems like there is a hammer hitting him in the patella. Later in the day I discussed the case with orthopedic surgery on-call with Dr. Francisco Kelley. He will have his partner Dr. Edmond see the patient in the morning. He did request ESR and CRP lab work to be completed. Opioid HPI Opioid Management Most Recent Pain and Opioid Data: Last Pain Scale 10 Today, 13:10 Last Pain Intensity 9 03/04/23, 10:36 Last Pain Assessment Today, 13:10 Last MAR Pain Assessment Today, 13:04 Last ORT Total Score 0 05/24/25, 21:53 Last ORT Risk Category Low Risk 05/24/25, 21:53 Ur Phencyclidine Scrn, (NEGATIVE) Negative 03/03/23, 17:24 Review of Systems ROS Narrative A 10 point review of systems was completed and is negative except as mentioned elsewhere in this documentation. [facility] Medical History (Updated 05/25/25 @ 14:41 by ELLIOT WARREN) Coronary artery disease ?I25.10 - Atherosclerotic heart disease of [place] coronary artery without angina pectoris (ICD-10) COPD (chronic obstructive pulmonary disease) ?J44.9 - Chronic obstructive pulmonary disease, unspecified (ICD-10) Hypertension ?I10 - Essential (primary) hypertension (ICD-10) Wound of foot ?S91.309A - Unspecified open wound, unspecified foot, initial encounter (ICD-10) Migraine headache ?G43.909 - Migraine, unspecified, not intractable, without status migrainosus (ICD-10) Carpal tunnel syndrome ?G56.00 - Carpal tunnel syndrome, unspecified upper limb (ICD-10) Back pain ?M54.9 - Dorsalgia, unspecified (ICD-10) Arthritis ?M19.90 - Unspecified osteoarthritis, unspecified site (ICD-10) Restless leg ?G25.81 - Restless legs syndrome (ICD-10) GERD (gastroesophageal reflux disease) ?K21.9 - Gastro-esophageal reflux disease without esophagitis (ICD-10) High cholesterol ?E78.00 - Pure hypercholesterolemia, unspecified (ICD-10) Myocardial infarction ?I21.9 - Acute myocardial infarction, unspecified (ICD-10) Dementia ?F03.90 - Unspecified dementia, unspecified severity, without behavioral disturbance, psychotic disturbance, mood disturbance, and anxiety (ICD-10) CKD stage 4 due to type 2 diabetes mellitus ?E11.22 - Type 2 diabetes mellitus with diabetic chronic kidney disease (ICD-10) ?N18.4 - Chronic kidney disease, stage 4 (severe) (ICD-10) Hyperlipidemia ?E78.5 - Hyperlipidemia, unspecified (ICD-10) Polyp of prostate with urinary obstruction ?N40.1 - Benign prostatic hyperplasia with lower urinary tract symptoms (ICD-10) ?N13.8 - Other obstructive and reflux uropathy (ICD-10) Femoral artery stenosis ?I70.209 - Unspecified atherosclerosis of [place] arteries of extremities, unspecified extremity (ICD-10) Glaucoma ?H40.9 - Unspecified glaucoma (ICD-10) Carpal tunnel syndrome, bilateral ?G56.03 - Carpal tunnel syndrome, bilateral upper limbs (ICD-10) Gout ?M10.9 - Gout, unspecified (ICD-10) Chronic kidney disease ?N18.9 - Chronic kidney disease, unspecified (ICD-10) Surgical History H/O foot surgery (08/10/23) ?Z98.890 - Other specified postprocedural states (ICD-10) S/P TURP (11/09/23) ?Z90.79 - Acquired absence of other genital organ(s) (ICD-10) H/O foot surgery (08/05/23) ?Z98.890 - Other specified postprocedural states (ICD-10) History of heart artery stent ?Z95.5 - Presence of coronary angioplasty implant and graft (ICD-10) History of spinal surgery ?Z98.890 - Other specified postprocedural states (ICD-10) History of colonoscopy ?Z98.890 - Other specified postprocedural states (ICD-10) History of carpal tunnel release ?Z98.890 - Other specified postprocedural states (ICD-10) History of cataract extraction ?Z98.49 - Cataract extraction status, unspecified eye (ICD-10) History of appendectomy ?Z90.49 - Acquired absence of other specified parts of digestive tract (ICD-10) History of heart artery stent ?Z95.5 - Presence of coronary angioplasty implant and graft (ICD-10) Family History Mother Family history of CHF (congestive heart failure) Family history of diabetes mellitus Family history of hypertension Grandfather Family history of CHF (congestive heart failure) Family history of diabetes mellitus Family history of hypertension Family history of myocardial infarction Grandmother Family history of hypertension Social History Within the past year, how often did you have a drink containing alcohol: 2-4 times a month Within the past year, how many standard drinks containing alcohol did you have on a typical day: 1 or 2 Within the past year, how often did you have six or more drinks on one occasion: never Total score: 0 Score interpretation: A score less than 4 is consistent with normal alcohol consumption. Smoking status: Current every day smoker What tobacco products do you use: cigarettes Cigarettes per day: 20 Years smoked: 42 Smoking pack-years: 42.00 Nicotine containing products detail: Approx 1 pack QOD Second hand tobacco smoke exposure: No Non-prescribed substance use: cannabis (any form) Previous occupational history: DISABLED Known occupational exposures/hazards: No Highest level of school completed/degree received: high school graduate Are you now , , , , never or living with a partner: In a typical week, how many times do you talk on the telephone with family, friends, or neighbors: once per week How often do you get together with friends or relatives: once per week How often do you attend hinduism or adventism services: never Do you belong to any clubs or organizations such as hinduism groups unions, fraternal or athletic groups, or school groups: no Total score: 1 Score interpretation: A score of less than or equal to 1 indicates the most socially isolated. Little interest or pleasure in doing things: not at all Feeling down, depressed, or hopeless: not at all Feel stressed/tense/nervous/anxious/difficulty sleeping: not at all Due to disability, difficulty making decisions: No Do you think of yourself as: straight/heterosexual Gender Identity: male Meds Home Medications and Allergies Home Medications ?Medication ?Instructions ?Recorded ?Confirmed ?Type empagliflozin 10 mg tablet 10 mg PO DAILY 03/03/23 05/24/25 History (Jardiance) nitroglycerin 0.4 mg sublingual 0.4 mg sublingual Q5M PRN chest 03/03/23 05/24/25 History tablet pain omeprazole 40 mg capsule,delayed 40 mg PO DAILY 03/03/23 05/24/25 History release atorvastatin 80 mg tablet 80 mg PO DAILY 12/09/23 05/24/25 History clopidogrel 75 mg tablet 75 mg PO DAILY 12/09/23 05/24/25 History dulaglutide 0.75 mg/0.5 mL 0.75 mg subcut QWEEK 12/09/23 05/24/25 History subcutaneous pen injector (Trulicity) tamsulosin 0.4 mg capsule 0.4 mg PO BID 12/09/23 05/24/25 History amitriptyline 25 mg tablet 25 mg PO DAILY 12/10/23 05/25/25 History budesonide-formoterol HFA 160 2 inh inhalation BID 12/10/23 05/24/25 History mcg-4.5 mcg/actuation aerosol inhaler (Symbicort) furosemide 40 mg tablet (Lasix) 40 mg PO DAILY 12/10/23 05/24/25 History allopurinol 100 mg tablet 100 mg PO DAILY 12/15/24 05/24/25 History blood-glucose sensor (FreeStyle 12/15/24 05/25/25 History Jigar 2 Plus Sensor device) calcium 500 mg (as 1 tab PO DAILY 12/15/24 05/24/25 History carbonate)-vitamin D3 10 mcg (400 unit) tablet (Calcium 500 With D) clonazepam 0.5 mg tablet 0.5 mg PO QAM 12/15/24 05/24/25 History ferrous sulfate 325 mg (65 mg 325 mg PO BID 12/15/24 05/24/25 History iron) tablet hydroxyzine HCl 25 mg tablet 25 mg PO .QHS 12/15/24 05/24/25 History magnesium oxide 400 mg (241.3 mg 400 mg PO DAILY 12/15/24 05/24/25 History magnesium) tablet metoprolol tartrate 25 mg tablet 50 mg PO BID 12/15/24 05/24/25 History ropinirole 0.5 mg tablet 0.5 mg PO TID 12/15/24 05/24/25 History glimepiride 2 mg tablet 1 mg PO BID 02/15/25 05/24/25 History metformin 1,000 mg tablet 1,000 mg PO BID 02/15/25 05/24/25 History aspirin 81 mg tablet,delayed 81 mg PO DAILY 05/25/25 05/25/25 History release cilostazol 50 mg tablet 50 mg PO BID 05/25/25 05/25/25 History pregabalin 225 mg capsule 225 mg PO TID 05/25/25 05/25/25 History sitagliptin phosphate 100 mg 100 mg PO DAILY 05/25/25 05/25/25 History tablet (Januvia) valsartan 80 1 tab PO DAILY 05/25/25 05/25/25 History mg-hydrochlorothiazide 12.5 mg tablet Allergies Allergy/AdvReac Type Severity Reaction Status Date / Time Penicillins Allergy Severe Swelling Verified 05/24/25 17:33 of Lip/Tongue/Throat bee venom protein (honey bee) Allergy Swelling Verified 05/24/25 17:33 of Lip/Tongue/Throat latex Allergy Rash Verified 05/24/25 17:33 Exam Narrative Exam Narrative: General: Awake. Alert. Oriented x 3. Head: Normocephalic/atraumatic. Eyes: EOMI. Mouth: Oropharynx is clear. Mucous membranes are moist. Neck: No thyromegaly. Pulmonary: Clear to auscultation throughout. No wheezing. No rhonchi. No crackles. Cardiac: Regular rate and rhythm to auscultation. No murmurs to auscultation. GI: Abdomen soft, normal bowel sounds to auscultation. Skin: Systemically his skin is normal with no systemic rashes. Psychiatric: Mood and affect are normal. He is helpful to the interview. Right lower extremity: He does have a longstanding right below the knee amputation. No edema in the right lower extremity. Right groin: The vascular surgery puncture site is examined. There is some purplish bruising around it. No knots. No swollen areas. No pulsatile areas. Healing normally as I would expect about 4 days after arterial access for Endo-vascular procedure. Left lower extremity: From his knee down to his foot he has some reactive edema, as expected. Everything is very nice and warm from his knee down to his ankle. Left knee: He does have a lot of pain in the anterior part of the knee just below the patella. This is equal on the right and the left side. He has a mild amount of pain along the joint line. There is no redness. There is no erythema. There is no warmth coming off of this. He can bend the knee jrcu-euf-coavl in bed but this obviously causes him a lot of pain. There is not very much joint effusion, like I might expect with acute hemarthrosis or acute gouty arthritis. And everything from his knee up to his thigh is normal. No streaking. No lymphangitis. The patella is very painful to palpation and he points to that area as the place where he feels the hammer type pain that is causing him the pain. Constitutional Vital Signs, click to edit/add: Last Vital Signs Temp 98 F 05/25/25 11:02 Pulse 79 05/25/25 11:01 Resp 18 05/25/25 11:02 BP 110/63 05/25/25 11:02 Pulse Ox 93 L 05/25/25 11:02 O2 Del Method Room Air 05/25/25 11:02 Results Labs Labs: Short CBC 05/24/25 05/25/25 Range/Units 18:05 05:43 WBC 10.3 10.3 (4.0-11.0) 10^3/uL Hgb 16.8 15.8 (14.0-18.0) g/dL Hct 48.3 45.7 (42.0-54.0) % Plt Count 121 L 118 L (150-450) 10^3/uL BMP 05/24/25 05/25/25 18:05 05:43 Sodium 127 L 135 L Potassium 3.6 3.3 L Chloride 92 L 101 Carbon Dioxide 26.5 27.6 BUN 16.0 14.0 Creatinine 2.79 H 2.23 H Glucose 618 H* 196 H Calcium 8.6 8.6 Liver Function 05/24/25 Range/Units 18:05 Total Bilirubin 0.7 (0.2-1.0) mg/dL AST 8 L (15-37) U/L ALT 17 (16-63) U/L Alkaline Phosphatase 161 H (46-116) U/L Albumin 3.1 L (3.4-5.0) g/dL Urine 05/24/25 Range/Units 23:20 Urine Color Lt. 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 To my view this does not look like an acute hemarthrosis. It is not very swollen and it does not look red on the outside and does not have a tremendous amount of warmth coming off of it. In my opinion the risk of acute septic/infected arthritis also was low. The patient has 2 white blood counts that are normal and is not having any fevers. The patient does use allopurinol so it is possible that this is gout although normally gout in this knee joint he has much more swelling and joint effusion. It is possible that there is an issue with the prepatellar bursa in this situation. The secondary problem of acute hyperglycemia causing pseudohyponatremia has improved. Chronic kidney disease stage III, likely slightly worsened due to the recent vascular surgery procedure causing an expected amount of re-perfusion edema to return to that lower extremity Diabetes mellitus type 2, degree of control not known at this time. Fairly severe diabetic polyneuropathy. Longstanding right sided below the knee amputation due to peripheral arterial disease and osteomyelitis in the foot and right lower extremity in the past. Plan: Pain medication has been increased with oral oxycodone 5 mg every 4 hours as needed and IV morphine every 4 hours as needed, which can be alternated for breakthrough pain. Voltaren gel can be applied to the knee and 4 g 4 times a day. Ice and heat can be intermittently used on the knee to help control pain. The patient can be evaluated by orthopedic surgery who will be seeing patients in the office here in town tomorrow. Checking ESR and CRP now and with morning labs. The ER did draw 2 blood cultures. Continue glycemic control with sliding scale insulin. Check hemoglobin A1c. Checking uric acid now. The patient chronically takes aspirin 81 mg daily and Plavix 75 mg daily given his high degree of peripheral arterial disease and was supposed to start on cilostazol. I am keeping his aspirin and Plavix on hold in case arthrocentesis is required.
[2025-05-25 15:17] LABS: Uric Acid 6.1 mg/dL (3.5-7.2)
[2025-05-25] MEDS: DICLOFENAC SODIUM 1% 100 GM TUBE TOPICAL ×3 (15:36→21:15)
[2025-05-25] MEDS: AMITRIPTYLINE HCL 25 MG TABLET PO (21:13)
[2025-05-25] MEDS: SENNOSIDES 8.6 MG TABLET PO (21:14)
[2025-05-25] MEDS: DOCUSATE SODIUM 100 MG CAPSULE 200 MG PO (21:14)
[2025-05-25] MEDS: CILOSTAZOL 100 MG TABLET 50 MG PO (21:14)
[2025-05-25] MEDS: PREGABALIN 75 MG CAPSULE 225 MG PO (21:14)
[2025-05-26 03:37] VITALS: BP 114/65; PULSE 86; TEMP 37.1; O2SAT 91
[2025-05-26 05:02] VITALS: PULSE 80; O2SAT 94
[2025-05-26] MEDS: ALBUTEROL SULFATE 2.5 MG/3 ML VIAL NEB IH ×3 (05:02→15:11)
[2025-05-26] MEDS: MORPHINE SULFATE 4 MG/ML VIAL IV (05:08)
[2025-05-26] MEDS: DICLOFENAC SODIUM 1% 100 GM TUBE TOPICAL ×2 (05:08→12:07)
[2025-05-26] MEDS: ROPINIROLE HCL 0.25 MG TABLET 0.5 MG PO ×2 (05:09→13:43)
[2025-05-26] MEDS: PREGABALIN 75 MG CAPSULE 225 MG PO ×2 (05:09→13:43)
[2025-05-26 05:32] LABS: Hematocrit 41.9 % (42.0-54.0); Hemoglobin 14.4 g/dL (14.0-18.0); Immature Granulocytes Abs Auto 0.03 10^3/uL (0.00-0.03); Immature Granulocytes Pct Auto 0.3 % (0.0-0.5); Lymphocytes Absolute Auto 1.4 10^3/uL (1.2-3.8); Mean Corpuscular HGB Conc 34.4 g/dL (29.9-35.2); Mean Corpuscular Hemoglobin 30.3 pg (25.9-34.0); Mean Corpuscular Volume 88.2 fL (80.0-94.0); Platelet Count 142 10^3/uL (150-450); Red Blood Count 4.75 10^6/uL (4.70-6.10); White Blood Count 8.6 10^3/uL (4.0-11.0)
[2025-05-26 05:51] LABS: Anion Gap 13.8; Blood Urea Nitrogen 16.0 mg/dL (7.0-18.0); Calcium 8.4 mg/dL (8.5-10.1); Carbon Dioxide 26.4 mmol/L (21.0-32.0); Chloride 102 mmol/L (98-107); Estimated GFR (African America 41 (>=60 mL/min/1.73m^2); Estimated GFR (Non-African Ame 34 (>=60 mL/min/1.73m^2); Glucose 229 mg/dL (74-106); Potassium 4.2 mmol/L (3.5-5.1); Sodium 138 mmol/L (136-145)
[2025-05-26 07:47] VITALS: BP 125/79; PULSE 85; TEMP 36.7; O2SAT 91
--- NOTE | 2025-05-26 08:05 | CM.NOTE ---
Rounds made with Dr. Ervin, pt continues with c/o knee pain. Discussed plan of care with pt, ortho will consult today for further recommendations. Possible discharge to home after ortho consultation. Pt will f/u with Dr. Valadez.
[2025-05-26] MEDS: INSULIN ASPART 300 UNIT/3 ML PEN SUBQ ×3 (08:10→16:27)
[2025-05-26] MEDS: MAGNESIUM OXIDE 400 MG TABLET PO (08:11)
[2025-05-26] MEDS: ATORVASTATIN CALCIUM 40 MG TABLET 80 MG PO (08:11)
[2025-05-26] MEDS: DAPAGLIFLOZIN 5 MG TABLET PO (08:11)
[2025-05-26] MEDS: METOPROLOL TARTRATE 25 MG TABLET 50 MG PO (08:11)
[2025-05-26] MEDS: SENNOSIDES 8.6 MG TABLET PO (08:11)
[2025-05-26] MEDS: LINAGLIPTIN 5 MG TABLET PO (08:11)
[2025-05-26] MEDS: FUROSEMIDE 40 MG TABLET PO (08:11)
[2025-05-26] MEDS: ALLOPURINOL 100 MG TABLET PO (08:11)
[2025-05-26] MEDS: GLIMEPIRIDE 2 MG TABLET 1 MG PO (08:11)
[2025-05-26] MEDS: DOCUSATE SODIUM 100 MG CAPSULE 200 MG PO (08:11)
[2025-05-26] MEDS: PANTOPRAZOLE SODIUM 40 MG TABLET.DR PO (08:11)
[2025-05-26] MEDS: TAMSULOSIN HCL 0.4 MG CAPSULE PO (08:12)
[2025-05-26] MEDS: CLONAZEPAM 0.5 MG TABLET PO (08:12)
[2025-05-26] MEDS: CILOSTAZOL 100 MG TABLET 50 MG PO (08:12)
[2025-05-26] MEDS: BUDESONIDE 0.5 MG/2 ML AMPULE NEB IH (10:33)
[2025-05-26 10:36] VITALS: PULSE 75; O2SAT 93
--- NOTE | 2025-05-26 10:59 | PM.DS1 ---
DS: Providers Provider Date of admission: 05/24/25 21:44 Primary care physician: Jenaro Valadez DO Consults: 05/24/25 Consult to Dietitian Routine Reason for consultation: weight loss Has provider been notified: Yes 05/25/25 14:25 Consult to Orthopedic Surgery Routine Consulting Provider: Dwight Ojeda Reason For Exam: Right knee pain Reason for consultation: LEFT knee pain DS: Diagnosis Discharge Diagnosis (1) Knee pain, left: (2) History of vascular surgery: (3) Acute hyperglycemia: (4) Peripheral vascular disease: (5) Neuropathy: (6) CKD stage 3b, GFR 30-44 ml/min: (7) DM2 (diabetes mellitus, type 2): Qualifiers: Diabetes mellitus buttermaker insulin use: without buttermaker use Diabetes mellitus complication status: with kidney complications Diabetes mellitus complication detail: with chronic kidney disease Chronic kidney disease stage: stage 4 (severe) Qualified Code(s): E11.22 - Type 2 diabetes mellitus with diabetic chronic kidney disease; N18.4 - Chronic kidney disease, stage 4 (severe) Plan As listed above, below and others that are not listed DS: Summary Hospital Course Hospital Course: Mr. Feldman is a 59-year-old gentleman who came in with left knee pain. He was found to have the following. Left knee pain that started after his angiogram completed by Dr. Montes. There is some effusion. There is no erythema, no induration. No change in temperature. Complete range of motion. Patient is able to flex his knee and extended without any limitation or difficulties. I do not suspect that the patient has septic knee. Responded very well to Voltaren gel. Patient to be seen by orthopedic team and likely will be discharged home if orthopedic physician does not recommend any additional inpatient diagnostic or therapeutic invention. Recent left leg angiogram completed by Dr. Wood. Emergency room physician had communicated with him regarding his knee pain and regarding arterial study completed in the emergency room department. Dr. Wood did not recommend any additional vascular investigation or treatment Patient is to follow-up with Dr. Wood. Left fifth toe ulceration Status postangioplasty of the left leg by Dr. Wood. Cultures growing staph. Patient will be discharged home on doxycycline for 7 days. Patient is to follow-up with vascular. Hyperglycemia. Likely caused by patient not taking his medication. Patient was placed back on his routine medication with correction of his hyperglycemia suggested that his medications are fairly adequate. Patient is at risk having hypoglycemia secondary to CKD therefore I recommend not to escalate his antidiabetic treatment fearing hypoglycemic episode Primary care doctor and/or accounts receivable executive could potentially escalate his treatment slowly and gradually in the outpatient setting with close monitoring. Consideration for patient to follow-up with endocrinology if primary care doctor chooses to do so. Patient is on metformin 1000 twice daily however his creatinine is above 1.5. Patient is at risk having lactic acidosis therefore I recommend to discontinue metformin. His Januvia dose is cut down to 50 mg daily due to CKD. Patient will be instructed to do the following: Check your blood sugar 3 times a day before meals. Document these numbers on a blood glucose log and bring them with you to your follow-up appointment with your primary care doctor. Communicate with your primary care doctor or collection support specialist if your blood sugar is under 100 or above 300 on 2 consecutive checks. Communicate with your primary care doctor or collection support specialist if you have any questions about your diabetes medications. Signs of a low blood sugar include sweating, racing heart, dizziness and/or weakness. Check your blood sugar if you have any of the symptoms. CKD stage III. Near baseline. Avoid nephrotoxic drugs. Recommend strict volume management. Recommend strict BP management. Patient is to follow-up with PCP regarding this. Consideration for patient to follow-up with the nephrology to see if there is any possible way we can halt the progression of his kidney failure. Patient is already on SGLT 1 Hypertension, fair control. Chronic, subacute medical conditions not listed above, abnormal labs and imaging, incidental findings seen on labs and or imaging. These would need to be addressed. Could be addressed later on or in the outpatient setting by PCP collaboration with other needed outpatient providers when time and condition are appropriate. Patient has multiple complex medical issues as listed above and others that are not listed. All appear to be stable. I do not have any clear or strong clinical justification to extend inpatient hospitalization. Patient however will require close and frequent monitoring as well as additional work-up, investigation and therapeutic intervention that could take place from this point on post discharge. That is to prevent relapse, decompensation, rehospitalization and other medical implications.. I instructed patient to ask her primary care doctor to obtain [facility] record entirely to address abnormalities seen on labs and imaging that I have and have not addressed during this hospitalization, follow-up on pending blood work, imaging and pathology is if available and to follow-up on needed medical care in the outpatient setting. Time Spent with Patient Time attestation: Total time spent providing and/or coordinating discharge services: Exam Narrative Exam Narrative: [pt is awake and alert. oriented to place, time and person HEENT: [place] conjunctiva and NL buccal mucosa Neck: Supple, no tenderness Endocrine: No Thyromegaly. Vascular: No JVD or carotid bruit. Lymphatic: No cervical lymphadenopathy. Chest: CTA no DTP. Heart RRR, no extra sound or murmur. Abd: Soft, no tenderness, no rebound and no rigidity. Increase abd girth therefore clinically I could not exclude the possibility of intra abd mass or organomegaly. LE: No cyanosis or clubbing, no varices or edema. Right below-knee amputation. Left knee mild effusion. No change in temperature. No erythema. Complete range of motion with flexion and extension without any limitation or restrictions. Small ulceration involving the left fifth toe. No erythema or drainage. Neuro: A A O. Nl speech, comprehension and attention. Nl and symetrical motor and tone examination through out. []] Constitutional Vital Signs, click to edit/add: Last Vital Signs Temp 98.0 F 05/26/25 07:47 Pulse 75 05/26/25 10:36 Resp 18 05/26/25 07:47 BP 125/79 05/26/25 07:47 Pulse Ox 93 L 05/26/25 10:36 O2 Del Method Room Air 05/26/25 10:36 DS: Data Data Completed and Pending Labs on day of discharge: Labs from last 24 hours 05/26/25 05/25/25 05/25/25 04:56 21:12 16:55 WBC 8.6 RBC 4.75 Hgb 14.4 Hct 41.9 L MCV 88.2 MCH 30.3 MCHC 34.4 RDW 12.8 Plt Count 142 L MPV 11.6 Neut % (Auto) 67.7 Lymph % (Auto) 15.7 L [place] % (Auto) 9.8 Eos % (Auto) 5.7 Baso % (Auto) 0.8 Neut # (Auto) 5.8 Lymph # (Auto) 1.4 [place] # (Auto) 0.8 Eos # (Auto) 0.5 Baso # (Auto) 0.1 Abs Immat Gran (auto) 0.03 Imm/Tot Granulo (auto) 0.3 ESR 54 H Sodium 138 Potassium 4.2 Chloride 102 Carbon Dioxide 26.4 Anion Gap 13.8 BUN 16.0 Creatinine 2.03 H Est GFR ( Amer) 41 L Est GFR (Non-Af Amer) 34 L BUN/Creatinine Ratio 7.9 Glucose 229 H Estimat Average Glucose Hemoglobin A1c Uric Acid Calcium 8.4 L C-Reactive Protein 12.25 H POC Glucose 242 H 282 H 05/25/25 05/25/25 11:20 05:43 WBC RBC Hgb Hct MCV MCH MCHC RDW Plt Count MPV Neut % (Auto) Lymph % (Auto) [place] % (Auto) Eos % (Auto) Baso % (Auto) Neut # (Auto) Lymph # (Auto) [place] # (Auto) Eos # (Auto) Baso # (Auto) Abs Immat Gran (auto) Imm/Tot Granulo (auto) ESR 64 H Sodium Potassium Chloride Carbon Dioxide Anion Gap BUN Creatinine Est GFR ( Amer) Est GFR (Non-Af Amer) BUN/Creatinine Ratio Glucose Estimat Average Glucose 226 Hemoglobin A1c 9.5 H Uric Acid 6.1 Calcium C-Reactive Protein 12.92 H POC Glucose 266 H Preliminary micro results at discharge 05/24/25 18:00 Wound Culture - Preliminary Toe - Left Pinky Pending - Specimen sent to [facility] Discharge Plan Discharge Disposition: Home, Self-Care Discharge Medications: New acetaminophen 325 mg Tablet 650 mg PO Q6H PRN (Reason: Pain or fever) Qty: 50 0RF tramadol 50 mg Tablet 50 mg PO Q8H PRN (Reason: Pain) Qty: 30 0RF diclofenac sodium 1 % Gel 4 g topical TID PRN (Reason: pain) Qty: 100 0RF Rx Instructions: Apply on left knee and rub in until complete absorption 3 times a day as needed doxycycline hyclate 100 mg tablet 100 mg PO BID 7 Days Qty: 14 0RF Continued allopurinol 100 mg tablet 100 mg PO DAILY clonazepam 0.5 mg tablet 0.5 mg PO QAM magnesium oxide 400 mg (241.3 mg magnesium) tablet 400 mg PO DAILY hydroxyzine HCl 25 mg tablet 25 mg PO .QHS calcium carbonate-vitamin D3 [Calcium 500 With D] 500 mg-10 mcg (400 unit) tablet 1 tab PO DAILY ferrous sulfate 325 mg (65 mg iron) tablet 325 mg PO BID metoprolol tartrate 25 mg tablet 50 mg PO BID Rx Instructions: HOLD IF SPB <125 OR HR <70 ropinirole 0.5 mg tablet 0.5 mg PO TID (DME) FreeStyle Jigar 2 Plus Sensor Device See Rx Instructions .ROUTE Rx Instructions: As directed glimepiride 2 mg tablet 1 mg PO BID Rx Instructions: Do not take if your blood sugar drops below 130 aspirin 81 mg tablet,delayed release (DR/EC) 81 mg PO DAILY cilostazol 50 mg tablet 50 mg PO BID valsartan-hydrochlorothiazide 80-12.5 mg tablet 1 tab PO DAILY Januvia 100 mg tablet 50 mg PO DAILY Qty: 0 0RF Jardiance 10 mg tablet 10 mg PO DAILY nitroglycerin 0.4 mg tablet, sublingual 0.4 mg sublingual Q5M PRN (Reason: chest pain) omeprazole 40 mg capsule,delayed release(DR/EC) 40 mg PO DAILY tamsulosin 0.4 mg capsule 0.4 mg PO BID atorvastatin 80 mg tablet 80 mg PO DAILY clopidogrel 75 mg tablet 75 mg PO DAILY Trulicity 0.75 mg/0.5 mL pen injector 0.75 mg subcut QWEEK Patient Comments: tuesdays furosemide [Lasix] 40 mg tablet 40 mg PO DAILY budesonide-formoterol [Symbicort] 160-4.5 mcg/actuation HFA aerosol inhaler 2 inh inhalation BID Changed pregabalin 225 mg capsule 225 mg PO BID Qty: 0 0RF Held amitriptyline 25 mg tablet 25 mg PO DAILY Hold Instructions: Resume on 06/16/25. Discontinued metformin 1,000 mg tablet 1,000 mg PO BID Print Language: Divehi Activity Restrictions/Additional Instructions: I may not have addressed or treated all of your medical illnesses or the abnormal blood work or imaging studies during this hospitalization. Please ask your primary care provider to obtain [facility] records entirely to follow up on all of the abnormal physical, laboratory, and imaging findings that I have not addressed. Please return back to the emergency room or seek medical attention if your symptoms worsen or return. Please follow-up with Dr. Montes Check your blood sugar 3 times a day before meals. Document these numbers on a blood glucose log and bring them with you to your follow-up appointment with your primary care doctor. Communicate with your primary care doctor or collection support specialist if your blood sugar is under 100 or above 300 on 2 consecutive checks. Communicate with your primary care doctor or collection support specialist if you have any questions about your diabetes medications. Signs of a low blood sugar include sweating, racing heart, dizziness and/or weakness. Check your blood sugar if you have any of the symptoms. Discharging you from [facility] does not mean that your medical care ends here and now. You may still need additional monitoring, work up, investigation, and treatment plan to be handled from this point on by out patient providers including your primary care provider and specialists. For any medication question, please contact your retail pharmacist or your primary care provider. Thank you. Forms: Portal Instructions
[2025-05-26] MEDS: ACETAMINOPHEN 325 MG TABLET 650 MG PO (12:07)
[2025-05-26] MEDS: OXYCODONE HCL 5 MG TABLET PO ×2 (12:07→16:24)
[2025-05-26 12:36] VITALS: BP 127/75; PULSE 97; TEMP 36.8; O2SAT 91
--- NOTE | 2025-05-26 13:55 | PM.ORCN ---
History of Present Illness HPI Chief complaint: Severe right knee pain, hyperglycemia. Narrative: Solomon is a 59-year-old relatively unhealthy male with vasculopathy who underwent recent revascularization in [place] with Dr. Montes. He says during that procedure something happened that caused severe left knee pain which has continued since the procedure. He denies any other injury to the knee. He denies any prior knee issues. Pain has remained the same maybe some mild improvement since that procedure. [facility] Medical History (Updated 05/25/25 @ 14:41 by ELLIOT WARREN) Coronary artery disease ?I25.10 - Atherosclerotic heart disease of [place] coronary artery without angina pectoris (ICD-10) COPD (chronic obstructive pulmonary disease) ?J44.9 - Chronic obstructive pulmonary disease, unspecified (ICD-10) Hypertension ?I10 - Essential (primary) hypertension (ICD-10) Wound of foot ?S91.309A - Unspecified open wound, unspecified foot, initial encounter (ICD-10) Migraine headache ?G43.909 - Migraine, unspecified, not intractable, without status migrainosus (ICD-10) Carpal tunnel syndrome ?G56.00 - Carpal tunnel syndrome, unspecified upper limb (ICD-10) Back pain ?M54.9 - Dorsalgia, unspecified (ICD-10) Arthritis ?M19.90 - Unspecified osteoarthritis, unspecified site (ICD-10) Restless leg ?G25.81 - Restless legs syndrome (ICD-10) GERD (gastroesophageal reflux disease) ?K21.9 - Gastro-esophageal reflux disease without esophagitis (ICD-10) High cholesterol ?E78.00 - Pure hypercholesterolemia, unspecified (ICD-10) Myocardial infarction ?I21.9 - Acute myocardial infarction, unspecified (ICD-10) Dementia ?F03.90 - Unspecified dementia, unspecified severity, without behavioral disturbance, psychotic disturbance, mood disturbance, and anxiety (ICD-10) CKD stage 4 due to type 2 diabetes mellitus ?E11.22 - Type 2 diabetes mellitus with diabetic chronic kidney disease (ICD-10) ?N18.4 - Chronic kidney disease, stage 4 (severe) (ICD-10) Hyperlipidemia ?E78.5 - Hyperlipidemia, unspecified (ICD-10) Polyp of prostate with urinary obstruction ?N40.1 - Benign prostatic hyperplasia with lower urinary tract symptoms (ICD-10) ?N13.8 - Other obstructive and reflux uropathy (ICD-10) Femoral artery stenosis ?I70.209 - Unspecified atherosclerosis of [place] arteries of extremities, unspecified extremity (ICD-10) Glaucoma ?H40.9 - Unspecified glaucoma (ICD-10) Carpal tunnel syndrome, bilateral ?G56.03 - Carpal tunnel syndrome, bilateral upper limbs (ICD-10) Gout ?M10.9 - Gout, unspecified (ICD-10) Chronic kidney disease ?N18.9 - Chronic kidney disease, unspecified (ICD-10) Surgical History H/O foot surgery (08/10/23) ?Z98.890 - Other specified postprocedural states (ICD-10) S/P TURP (04/13/23) ?Z90.79 - Acquired absence of other genital organ(s) (ICD-10) H/O foot surgery (08/05/23) ?Z98.890 - Other specified postprocedural states (ICD-10) History of heart artery stent ?Z95.5 - Presence of coronary angioplasty implant and graft (ICD-10) History of spinal surgery ?Z98.890 - Other specified postprocedural states (ICD-10) History of colonoscopy ?Z98.890 - Other specified postprocedural states (ICD-10) History of carpal tunnel release ?Z98.890 - Other specified postprocedural states (ICD-10) History of cataract extraction ?Z98.49 - Cataract extraction status, unspecified eye (ICD-10) History of appendectomy ?Z90.49 - Acquired absence of other specified parts of digestive tract (ICD-10) History of heart artery stent ?Z95.5 - Presence of coronary angioplasty implant and graft (ICD-10) Family History Mother Family history of CHF (congestive heart failure) Family history of diabetes mellitus Family history of hypertension Grandfather Family history of CHF (congestive heart failure) Family history of diabetes mellitus Family history of hypertension Family history of myocardial infarction Grandmother Family history of hypertension Social History Within the past year, how often did you have a drink containing alcohol: 2-4 times a month Within the past year, how many standard drinks containing alcohol did you have on a typical day: 1 or 2 Within the past year, how often did you have six or more drinks on one occasion: never Total score: 0 Score interpretation: A score less than 4 is consistent with normal alcohol consumption. Smoking status: Current every day smoker What tobacco products do you use: cigarettes Cigarettes per day: 20 Years smoked: 42 Smoking pack-years: 42.00 Nicotine containing products detail: Approx 1 pack QOD Second hand tobacco smoke exposure: No Non-prescribed substance use: cannabis (any form) Previous occupational history: DISABLED Known occupational exposures/hazards: No Highest level of school completed/degree received: high school graduate Are you now , , , , never or living with a partner: In a typical week, how many times do you talk on the telephone with family, friends, or neighbors: once per week How often do you get together with friends or relatives: once per week How often do you attend moravian or quaker services: never Do you belong to any clubs or organizations such as moravian groups unions, [employer] or athletic groups, or school groups: no Total score: 1 Score interpretation: A score of less than or equal to 1 indicates the most socially isolated. Little interest or pleasure in doing things: not at all Feeling down, depressed, or hopeless: not at all Feel stressed/tense/nervous/anxious/difficulty sleeping: not at all Due to disability, difficulty making decisions: No Do you think of yourself as: straight/heterosexual Gender Identity: male Meds Home Medications and Allergies Home Medications ?Medication ?Instructions ?Recorded ?Confirmed ?Type empagliflozin 10 mg tablet 10 mg PO DAILY 03/03/23 05/24/25 History (Jardiance) nitroglycerin 0.4 mg sublingual 0.4 mg sublingual Q5M PRN chest 03/03/23 05/24/25 History tablet pain omeprazole 40 mg capsule,delayed 40 mg PO DAILY 03/03/23 05/24/25 History release atorvastatin 80 mg tablet 80 mg PO DAILY 12/09/23 05/24/25 History clopidogrel 75 mg tablet 75 mg PO DAILY 12/09/23 05/24/25 History dulaglutide 0.75 mg/0.5 mL 0.75 mg subcut QWEEK 12/09/23 05/24/25 History subcutaneous pen injector (Trulicity) tamsulosin 0.4 mg capsule 0.4 mg PO BID 12/09/23 05/24/25 History amitriptyline 25 mg tablet 25 mg PO DAILY 12/10/23 05/25/25 History Held on 05/26/25. Instructions: Resume on 06/16/25. budesonide-formoterol HFA 160 2 inh inhalation BID 12/10/23 05/24/25 History mcg-4.5 mcg/actuation aerosol inhaler (Symbicort) furosemide 40 mg tablet (Lasix) 40 mg PO DAILY 12/10/23 05/24/25 History allopurinol 100 mg tablet 100 mg PO DAILY 12/15/24 05/24/25 History blood-glucose sensor (FreeStyle 12/15/24 05/25/25 History Jigar 2 Plus Sensor device) calcium 500 mg (as 1 tab PO DAILY 12/15/24 05/24/25 History carbonate)-vitamin D3 10 mcg (400 unit) tablet (Calcium 500 With D) clonazepam 0.5 mg tablet 0.5 mg PO QAM 12/15/24 05/24/25 History ferrous sulfate 325 mg (65 mg 325 mg PO BID 12/15/24 05/24/25 History iron) tablet hydroxyzine HCl 25 mg tablet 25 mg PO .QHS 12/15/24 05/24/25 History magnesium oxide 400 mg (241.3 mg 400 mg PO DAILY 12/15/24 05/24/25 History magnesium) tablet metoprolol tartrate 25 mg tablet 50 mg PO BID 12/15/24 05/24/25 History ropinirole 0.5 mg tablet 0.5 mg PO TID 12/15/24 05/24/25 History glimepiride 2 mg tablet 1 mg PO BID 02/15/25 05/24/25 History aspirin 81 mg tablet,delayed 81 mg PO DAILY 05/25/25 05/25/25 History release cilostazol 50 mg tablet 50 mg PO BID 05/25/25 05/25/25 History valsartan 80 1 tab PO DAILY 05/25/25 05/25/25 History mg-hydrochlorothiazide 12.5 mg tablet acetaminophen 325 mg tablet 650 mg (2 x 325 mg) PO Q6H PRN 05/26/25 Rx Pain or fever #50 tabs diclofenac sodium 1 % topical gel 4 g topical TID PRN pain #100 grams 05/26/25 Rx doxycycline hyclate 100 mg tablet 100 mg PO BID 7 days #14 tabs 05/26/25 Rx pregabalin 225 mg capsule 225 mg PO BID #0 caps 05/26/25 05/25/25 Rx sitagliptin phosphate 100 mg 50 mg (1/2 x 100 mg) PO DAILY #0 05/26/25 05/25/25 Rx tablet (Januvia) tabs tramadol 50 mg tablet 50 mg PO Q8H PRN Pain #30 tabs 05/26/25 Rx Allergies Allergy/AdvReac Type Severity Reaction Status Date / Time Penicillins Allergy Severe Swelling Verified 05/24/25 17:33 of Lip/Tongue/Throat bee venom protein (honey bee) Allergy Swelling Verified 05/24/25 17:33 of Lip/Tongue/Throat latex Allergy Rash Verified 05/24/25 17:33 Exam Narrative Exam Narrative: Patient seen evaluated on regular nursing floor. Resting in supine position. Knee is exposed with pillows underneath. No abnormal swelling or discoloration is appreciated. He has no significant tenderness to the anterior medial or lateral portions of the knee but does have pain in the popliteal fossa with deep palpation. His knee is stable to varus and valgus stressing. No effusion is felt. The knee is not warm or red. He can bend the knee to approximately 40 degrees and nearly fully extend it this does cause some discomfort. He is able to wiggle toes move foot and ankle up and without discomfort. Constitutional Vital Signs, click to edit/add: Last Vital Signs Temp 98.3 F 05/26/25 12:36 Pulse 97 H 05/26/25 12:36 Resp 18 05/26/25 12:36 BP 127/75 05/26/25 12:36 Pulse Ox 91 L 05/26/25 12:36 O2 Del Method Room Air 05/26/25 12:36 Results Labs Labs: Abnormal lab results 05/25/25 05/25/25 05/25/25 Range/Units 05:43 16:55 21:12 Hct (42.0-54.0) % Plt Count (150-450) 10^3/uL Lymph % (Auto) (20.5-60.0) % ESR 64 H (<=20) mm/hr Creatinine (0.70-1.30) mg/dL Est GFR ( Amer) (>=60 mL/min/1.73m^2) Est GFR (Non-Af Amer) (>=60 mL/min/1.73m^2) Glucose (74-106) mg/dL Hemoglobin A1c 9.5 H (4.5-6.2) % Calcium (8.5-10.1) mg/dL C-Reactive Protein 12.92 H (<=0.50) mg/dL POC Glucose 282 H 242 H (74-106) mg/dL 05/26/25 05/26/25 Range/Units 04:56 11:41 Hct 41.9 L (42.0-54.0) % Plt Count 142 L (150-450) 10^3/uL Lymph % (Auto) 15.7 L (20.5-60.0) % ESR 54 H (<=20) mm/hr Creatinine 2.03 H (0.70-1.30) mg/dL Est GFR ( Amer) 41 L (>=60 mL/min/1.73m^2) Est GFR (Non-Af Amer) 34 L (>=60 mL/min/1.73m^2) Glucose 229 H (74-106) mg/dL Hemoglobin A1c (4.5-6.2) % Calcium 8.4 L (8.5-10.1) mg/dL C-Reactive Protein 12.25 H (<=0.50) mg/dL POC Glucose 199 H (74-106) mg/dL H & H 05/24/25 05/25/25 05/26/25 Range/Units 18:05 05:43 04:56 Hgb 16.8 15.8 14.4 (14.0-18.0) g/dL Hct 48.3 45.7 41.9 L (42.0-54.0) % Coagulation 05/24/25 Range/Units 18:05 INR 1.05 All other labs normal. Diagnostic results Knee x-ray: report reviewed and image reviewed (No acute osseous abnormalities are identified) Assessment and Plan Assessment and Plan (1) Knee pain, left: (2) History of vascular surgery: (3) Acute hyperglycemia: (4) Peripheral vascular disease: (5) Neuropathy: (6) CKD stage 3b, GFR 30-44 ml/min: (7) DM2 (diabetes mellitus, type 2): Qualifiers: Diabetes mellitus detention insulin use: without detention use Diabetes mellitus complication status: with kidney complications Diabetes mellitus complication detail: with chronic kidney disease Chronic kidney disease stage: stage 4 (severe) Qualified Code(s): E11.22 - Type 2 diabetes mellitus with diabetic chronic kidney disease; N18.4 - Chronic kidney disease, stage 4 (severe) Alix Carbajal presents with left knee pain during/after revascularization procedure. At this juncture we have discussed the findings and diagnosis as well as personally reviewed appropriate imaging and performed interpretation of related testing and examination with the patient in office today. Prior medical notes from Dr. Warren and history have been reviewed. Based on his complaints and exam I have no orthopedic cause for his left knee pain. If this started during his vascular procedure then I would related to that. He has no effusion or concern for septic arthritis if that is of concern. Would recommend discussion with his vascular doctor for reevaluation if this continues. The patient has been involved in our cooperative treatment plan and agrees to move forward with treatment at this time.
[2025-05-26 15:13] VITALS: PULSE 95; O2SAT 95
--- NOTE | 2025-05-27 07:20 | PM.EN ---
Event Note Event Note: Wound cultures came back + for MRSA sensitive to Doxy Pt was discharged home on Doxy and to follow up with PCP and vascular to monitor wound recovery post angioplasty and antbx tx.
--- NOTE | 2025-05-27 10:55 | CM.NOTE ---
Final wound culture received, pt discharged on doxycycline. Hospitalist aware of report.
--- NOTE | 2025-05-27 12:30 | CM.DCFOLLOWU ---
Person spoke with: Patient's (Yamileth) How are you feeling? Better How is your pain? Still having some pain Did you understand your discharge instructions? Yes Do you have any questions about your discharge instructions? No Were you given any prescriptions at discharge? Yes Were you able to get your prescriptions filled? Yes Do you understand how to take your medications as ordered? Yes Do you have any questions about your follow up appointment and do you plan to keep your follow up appointment? No questions about follow up appts. They plan on keeping them. Is there anything else that you would like to discuss? No Questions/Comments/Concerns/Other:
== END 2025-05-26 16:50 | disposition home or self-care (01) ==
LOC: ER 20:27 → MS 21:49
PROVIDERS: Emergency Medicine; Hospitalist; Personal Emergency Response Attendant; Admitting Provider Internal Medicine; Emergency Provider Internal Medicine; PCP Family Medicine; Visit Provider Internal Medicine
DX: E11.65 Type 2 diabetes mellitus with hyperglycemia (principal); M25.562 Pain in left knee; E11.51 Type 2 diabetes mellitus with diabetic peripheral angiopathy without gangrene; E11.22 Type 2 diabetes mellitus with diabetic chronic kidney disease; N18.32 Chronic kidney disease, stage 3b; F17.210 Nicotine dependence, cigarettes, uncomplicated; Z98.890 Other specified postprocedural states; E11.621 Type 2 diabetes mellitus with foot ulcer; L97.529 Non-pressure chronic ulcer of other part of left foot with unspecified severity; B95.62 Methicillin resistant Staphylococcus aureus infection as the cause of diseases classified elsewhere; Z79.84 Long term (current) use of oral hypoglycemic drugs; I12.9 Hypertensive chronic kidney disease with stage 1 through stage 4 chronic kidney disease, or unspecified chronic kidney disease; Z79.85 Long-term (current) use of injectable non-insulin antidiabetic drugs; Z89.511 Acquired absence of right leg below knee; E11.42 Type 2 diabetes mellitus with diabetic polyneuropathy; E87.1 Hypo-osmolality and hyponatremia
CPT/HCPCS: 36415; 73562; 73630; 80048; 80053; 81001; 82009; 82948; 83036; 83605; 84550; 85025; 85610; 85652; 85730; 86140; 87040; 87070; 87075; 87077; 87186; 93926; 94640; 96372; 96374; 96375; 96376; 99285; 99406; G0378; J1171; J1644; J1817; J2270